=== PATIENT | female | born 1945 | race Caucasian/White ===

== ENCOUNTER 2023-12-17 18:50 | Emergency (ER) | payer MEDICARE, SELFPAY ==
[2023-12-17 18:51] VITALS: BP 96/42; PULSE 69; RESP 16; TEMP 36.2; O2SAT 95
[2023-12-17 18:53] VITALS: BP 104/85; PULSE 114; RESP 18; TEMP 36.2; O2SAT 96; BMI 45.4
[2023-12-17 19:10] VITALS: BP 104/85; PULSE 117; RESP 18; O2SAT 98
--- NOTE | 2023-12-17 19:16 | EX.ED.DYSGE1 ---
HPI History of Present Illness Chief Complaint: Other, Pain/Inj Informant: patient and EMS Narrative Narrative: 77-year-old female sent from [facility] because of a problem with her PICC. The patient states this problem has been occurring for the past week. It is difficult to get medications to go in but they are going, as had her latest doses of Rocephin and vancomycin today. She states she is on these 2 antibiotics until December 25, for 6 weeks total, because of a spinal infection that she had surgically evacuated at . She states she is nonambulatory and has been for several years, unrelated to the infection, and she has no focal neurologic symptoms now in her lower extremity since her surgery. She states the reason she was sent this evening, arriving 1900, is because today she brought to the attention of the nurses and techs at the al[facility] that she has swelling in her left arm and her left breast. She states it has been this way for at least a week. Maybe longer. She states they tried to flush her PICC and were unable to tonight, and as a result of all of this in her here. Patient states otherwise she feels fine. She does not have any pain where she has swelling. PFSH PFSH Allergy/AdvReac Type Severity Reaction Status Date / Time No Known Allergies Allergy Verified 12/17/23 18:53 [facility] ED Constitutional Constitutional ED: Denies chills or fever(s) Eyes Eyes: Denies change in vision or diplopia ENT ENT ED: Denies rhinorrhea or sore throat Cardiovascular Cardiovascular: Reports leg edema; Denies chest pain or palpitations Respiratory/Chest Respiratory/Chest: Denies cough or dyspnea Gastrointestinal Gastrointestinal: Denies abdominal pain, diarrhea, nausea or vomiting Genitourinary Genitourinary ED: Denies dysuria or hematuria Musculoskeletal Musculoskeletal: Denies back pain or neck pain Integumentary Denies abscess or rash Neurologic Neurologic: Denies headache(s), paresthesias or weakness Psychiatric Psychiatric: Denies anxiety or suicidal thoughts EXAM Physical Exam Const Vital Signs: 12/17/23 18:51 12/17/23 18:53 12/17/23 19:10 Temperature 97.2 F L 97.2 F L Temperature Source Temporal Oral Pulse Rate 69 114 H 117 H Respiratory Rate 16 18 18 Respiratory Pattern Blood Pressure 96/42 L 104/85 H 104/85 H Blood Pressure Mean 60 91 91 Pulse Ox 95 96 98 Oxygen Delivery Method Room Air Room Air Room Air 12/17/23 19:11 Temperature Temperature Source Pulse Rate Respiratory Rate Respiratory Pattern Normal Blood Pressure Blood Pressure Mean Pulse Ox Oxygen Delivery Method Positive well nourished, well developed and obese General Appearance ED: well developed and NAD Nutritional Appearance: obese HEENT Reports moist mucous membranes normocephalic and atraumatic Eyes PERRL and EOMs intact bilaterally Neck full ROM and supple Resp normal respiratory effort Auscultation: wheezes expiratory wheezes and throughout Cardio regular rate and regular rhythm GI non-tender and non-distended Auscultation: normoactive bowel sounds Palpation: soft Back/Spine no CVA tenderness General Back: other FROM Extremity normal to inspection Extremity Narrative: Nonpitting edema to the left upper arm as well as the left breast, the surrounding tissues, in the pannus on the left side, all of which is edematous and nontender without signs of infection or induration. Patient leaning to the left lateral decubitus. General Extremety ED: Yes edema; Negative for pulses abnormal or tenderness General Extremity: edema; Negative for pulses abnormal Neuro oriented x3, CN's II-XII intact bilaterally and no sensory deficits noted Sensorium / Orientation: awake and alert Motor Exam: strength 5/5 throughout Psych mental status grossly normal Skin no rashes or lesions noted Skin Narrative: Superficial wound distal right nova with a dressing on it no signs of infection or tenderness. MDM MDM MDM Narrative Medical decision making narrative: Patient appears to be edematous on the left side, we flushed the PICC which the nurse states flushes easily without difficulty. I asked the patient if she lies on the left side often, she states yes, all of the time. I think she is edematous there because it is dependent and she is bedridden for the last several weeks. I do not think she is edematous in her left arm because of a problem with her PICC. I talked all this over with Dr. Felipe who is on-call, he agrees would be reasonable to send her back especially since the PICC is working. I offered to obtain labs if they want, he states no they can see here there at [facility] tomorrow. Of note the patient arrived in the evening when vascular ultrasound of the upper extremity was not available. We did discuss this, I think it is less likely because she does not have any edema in the forearm, but if it was available I would have obtained it. Management Discussion w/another healthcare provider: PCP Discharge Plan Triage Chief Complaint: Other, Pain/Inj ED Provider: Jerman Zavala Dx/Rx/DC Orders Clinical Impression: Dependent edema Instructions: ED Lymphedema Primary Care Provider: Dominic Lim Referrals: Dominic Lim MD [Primary Care Provider] - As soon as possible Print Language: Israeli Disposition Disposition: Home, Self Care
[2023-12-17 19:53] VITALS: BP 108/79; PULSE 96; RESP 18; TEMP 36.6; O2SAT 99
[2023-12-17 21:00] VITALS: BP 105/66; PULSE 84; RESP 18; O2SAT 98
--- NOTE | 2023-12-17 21:26 | NURSING ---
Report called to [facility], given to Susy. All questions answered at this time.
[2023-12-17 23:00] VITALS: BP 100/57; PULSE 81
--- NOTE | 2023-12-17 23:39 | ED.RN ---
pt. updated on delay in transport. This RN got patient aurea crackers and a diet coke. call light within reach
[2023-12-18 00:45] VITALS: BP 100/57; PULSE 81; RESP 16; TEMP 36.7; O2SAT 94
[2023-12-18 01:00] VITALS: BP 105/57; PULSE 74; RESP 17; O2SAT 100
== END 2023-12-18 03:27 | disposition home or self-care (01) ==
PROVIDERS: Emergency Provider Emergency Medicine; PCP Family Medicine; Visit Provider Emergency Medicine
DX: R60.9 Edema, unspecified (principal); E66.9 Obesity, unspecified
CPT/HCPCS: 99282

== ENCOUNTER 2023-12-31 17:42 | Inpatient (IN) | payer MEDICARE, SELFPAY ==
[2023-12-31] VITALS (13 sets, daily range): BP systolic 101–155; BP diastolic 29–131; PULSE 90–122; RESP 12–28; TEMP 36.1–36.7; O2SAT 91–100; BMI 46.3
--- NOTE | 2023-12-31 17:59 | EKG12_ITS ---
Test Reason : UNRESPONSIVE/IRREGUAR HR Blood Pressure : / mmHG Vent. Rate : 101 BPM Atrial Rate : 000 BPM P-R Int : 000 ms QRS Dur : 104 ms QT Int : 402 ms P-R-T Axes : 000 -33 165 degrees QTc Int : 521 ms Atrial fibrillation with rapid ventricular response with premature ventricular or aberrantly conducte d complexes Left axis deviation Low voltage QRS Cannot rule out Anterior infarct , age undetermined Abnormal ECG Confirmed by Raul Fong ([id number]), editor house organ CLIF CANALES ([id number]) on 01/01/2024 10:49:54 AM Referred By: Confirmed By:Raul Fong
--- NOTE | 2023-12-31 18:00 | EDS_ITS ---
HPI History of Present Illness Chief Complaint: Unresponsive Narrative Narrative: History and physical is limited to patient acuity. 78-year-old female presents from half-way facility with decrease in mental status and respiratory wheezing. They state that she was doing well until half an hour ago. She is in the residential being treated for osteomyelitis. Sounded very wheezy, and now she is more unresponsive. She is only intermittently following commands. PFSH PFSH Allergy/AdvReac Type Severity Reaction Status Date / Time No Known Allergies Allergy Verified 12/17/23 18:53 Social History Smoking Status: Never smoker ROS ROS ED Review of Systems ROS Unobtainable: due to mental status EXAM Physical Exam Narrative Exam Narrative: Afebrile. Vital signs noted. Decreased movement of air. Positive expiratory wheezing. Mild tachypnea. Positive tachycardia. Intermittently follows commands. Abdomen soft, obese, without guarding or rebound. Positive right upper extremity edema and bilateral lower extremity edema. Const Vital Signs: 12/31/23 17:44 12/31/23 17:52 12/31/23 17:59 Temperature 97.0 F L Temperature Source Temporal Pulse Rate 102 H Respiratory Rate 26 H Respiratory Effort Labored Accessory Muscle Use Respiratory Pattern Juvencio-Meza Blood Pressure 101/57 L Blood Pressure Mean 71 Pulse Ox 91 Oxygen Delivery Method Nasal Cannula Nasal Cannula Oxygen Flow Rate (L/min) 4 Fraction of Inspired Oxygen (FIO2) 12/31/23 18:11 12/31/23 18:11 12/31/23 18:43 Temperature Temperature Source Pulse Rate 105 H 104 H Respiratory Rate 28 H 23 H Respiratory Effort Respiratory Pattern Tachypnea Blood Pressure Blood Pressure Mean Pulse Ox 96 96 99 Oxygen Delivery Method Bi-pap Bi-pap Oxygen Flow Rate (L/min) Fraction of Inspired Oxygen (FIO2) 70 70 12/31/23 20:00 12/31/23 20:33 Temperature 98.1 F Temperature Source Pulse Rate 108 H 99 Respiratory Rate 21 H 23 H Respiratory Effort Respiratory Pattern Blood Pressure 103/29 L 103/29 L Blood Pressure Mean 53 53 Pulse Ox 96 93 Oxygen Delivery Method Bi-pap Oxygen Flow Rate (L/min) Fraction of Inspired Oxygen (FIO2) MDM MDM MDM Narrative Medical decision making narrative: Differential diagnosis includes but not limited to CO2 narcosis, CHF, sepsis, hepatic encephalopathy. Comprehensive workup was pursued. Patient was only satting 91% on 4 L nasal cannula, but it is in her mouth. She was placed on BiPAP and ABG will be drawn. Sepsis workup was also pursued given that she was tachycardic and borderline hypotensive at 101/57. Chest x-ray in 1 view was interpreted by myself as cardiomegaly with a right pleural effusion. I reviewed the radiology report which confirms my independent interpretation. With suspicion of CO2 retention, ABG was obtained and she has a pH of 7.4 with pCO2 of 45.3 and pO2 of 198 on BiPAP. I reviewed her laboratory work and she has normal white count of 7.7 with hemoglobin stable at 9.9, platelet count normal at 239. INR is 1.8 with a PTT of 39.9. She has known hypokalemia which was being treated at the half-way facility. It is low at 2.6 today so I obtained a magnesium and it is also low at 1.1. She will be started on potassium then magnesium. LFTs are grossly unremarkable. Glucose is appropriately elevated at 139 with a BUN of 20 and creatinine 0.54. Ammonia level is 19 so I do not suspect hepatic encephalopathy. She did improve on her mental status on BiPAP. High-sensitivity troponin is 29. EKG was obtained and interpreted by myself independently as A-fib at [address] changes. No STEMI. There are PVCs noted. Lactic acid is normal at 1.0. Urinalysis does show increase in WBCs and positive yeast. I did obtain respiratory swabs and she is COVID-positive on review. At this point in time, given her change in mental status, hypokalemia and hypomagnesemia, along with respiratory failure on BiPAP I do feel that she requires admission. Patient was discussed with Dr. Sampson. As her lactic acid is normal at 1.0, I do not feel that she is meeting sepsis criteria or that sepsis alert needs to be called. As she has possible secondary bacterial pneumonia with COVID, she was started on vancomycin and Zosyn. Urine culture is currently pending. Given her respiratory failure on BiPAP and electrolyte abnormalities with mental status change, disposition is admit to the ICU in guarded condition. Critical care time 31 minutes. History & Record Review Discussion w/independent historian: EMS personnel Additional record(s) reviewed:: Prior outpatient record and Prior labs Lab Data Attestation: I reviewed the patient's lab results. Labs: Laboratory Results - last 24 hr 12/31/23 12/31/23 12/31/23 17:57 18:35 19:05 WBC 7.7 RBC 3.83 L Hgb 9.9 L Hct 32.8 L MCV 85.6 MCH 25.8 L MCHC 30.2 L RDW Std Deviation 55.0 H RDW Coeff of Josiah 17.7 H Plt Count 239 MPV 9.1 Immature Gran % (Auto) 0.400 Neut % (Auto) 63.9 Lymph % (Auto) 24.3 [place] % (Auto) 7.8 Eos % (Auto) 2.9 Baso % (Auto) 0.7 Absolute Neuts (auto) 4.9 Absolute Lymphs (auto) 1.86 Nucleated RBC % 0 PT 20.9 H INR 1.8 APTT 39.9 H Sodium 142 Potassium 2.6 L* Chloride 106 Carbon Dioxide 32.0 Anion Gap 4 L BUN 20 H Creatinine 0.54 L Est GFR (MDRD) Af Amer 141 Est GFR (MDRD) Non-Af 117 BUN/Creatinine Ratio 37.0 H Glucose 139 H Lactic Acid 1.0 Calcium 7.8 L Magnesium 1.1 L Total Bilirubin 0.30 AST 21 ALT 13 Alkaline Phosphatase 137 H Ammonia 19.0 Troponin I High Sens 29 Total Protein 4.7 L Albumin 1.4 L Globulin 3.3 Albumin/Globulin Ratio 0.4 L Urine Color Rita Urine Clarity Clear Urine pH 6.0 Ur Specific [place] 1.020 Urine Protein 30 H Urine Glucose (UA) Normal Urine Ketones Negative Urine Occult Blood Negative Urine Nitrite Negative Urine Bilirubin Negative Urine Urobilinogen Normal Ur Leukocyte Esterase 100 H Urine RBC 0-5 SEEN Urine WBC 25-50 SEEN Ur Squamous Epith Cells 0 SEEN Urine Bacteria 2+ Urine Mucus 2+ Urine Yeast 2+ ABG Data ABG results: ABG 12/31/23 18:49 Specimen Type ART Sample Site L Radial pH 7.47 H Bicarbonate Actual 32.6 H Total CO2 34 Base Excess 9 H O2 Saturation 100 H O2 % 50.0 ABG pCO2 45.3 H ABG pO2 198 H Gutierrez Test Positive Respiration Rate 12 O2 Delivery Device BiPAP Vent Mode Not entered POC PEEP 6 Peak Inspir Pressure 14 Radiography Diagnostic Testing: Clinical Impression(s) from Imaging Studies Chest X-Ray 12/31/23 18:43 IMPRESSION: Cardiomegaly with right-sided effusion and right lower lobe atelectasis or pneumonia. Electronically Signed: Mariusz Whitten MD at 19:04 EDT , Management Discussion w/another healthcare provider: Hospitalist (Dr. Sampson) Critical Care Time Critical care time (excluding procedures): 30-74 minutes (31 minutes), Including time spent:, Discussing w/Patient &/or Family/Cruise Consultant, Discussing w/C onsultants, Arranging Admission or Transfer and Performing Direct Patient Care at Bedside Discharge Plan Dx/Rx/DC Orders Clinical Impression: Altered mental status, Respiratory failure with hypoxia and hypercapnia, Hypomagnesemia, Hypokalemia, Pneumonia, Pleural effusion, right Disposition Disposition: Acute Care Hospital [facility]
--- NOTE | 2023-12-31 18:08 | NURSING ---
NO OLD EKGS
[2023-12-31 18:09] LABS: Absolute Lymphocyte Count 1.86 X10^3/uL (0.83-4.51); Absolute Neutrophil Count 4.9 X10^3/uL (2.0-7.7); Basophil# 0.05 X10^3/uL; Basophil% 0.7 % (0-1); Eosinophil# 0.22 X10^3/uL; Eosinophils% 2.9 % (0-5); Hematocrit 32.8 % (37-47); Hemoglobin 9.9 g/dL (12.0-15.0); Lymphocyte # 1.86 X10^3/ul (0.83-4.51); Lymphocyte % 24.3 % (19-41); Mean Corp Hgb Conc 30.2 g/dL (32-36); Mean Corpuscular Hgb 25.8 pg (27.0-32.0); Mean Corpuscular Volume 85.6 fL (81-99); Mean Platelet Vol. 9.1 fl (6.2-12.0); Monocyte% 7.8 % (0-10); NRBC Flagged by Analyzer 0 % (0-5); Neutrophil # 4.89 X10^3/uL (2.7-7.7); Neutrophil % 63.9 % (47-70); Platelet Count 239 K/mm3 (150-450); RBC Distribution Width CV 17.7 % (11.6-14.6); Red Blood Count 3.83 M/mm3 (4.2-5.4); White Blood Count 7.7 K/mm3 (4.4-11.0)
[2023-12-31 18:23] LABS: Partial Thromboplast Time 39.9 Seconds (24.1-36.2)
[2023-12-31 18:39] LABS: International Normalized Ratio 1.8; Prothrombin Time (Protime)PT. 20.9 SECONDS (11.7-14.9)
[2023-12-31 18:40] LABS: ALB/GLOB Ratio 0.4 RATIO (0.9-2.4); AST(SGOT) 21 U/L (15-37); Alanine Aminotransfer ALT/SGPT 13 U/L (13-56); Albumin, Serum 1.4 g/dL (3.2-5.0); Alkaline Phosphatase 137 U/L (45-117); Anion Gap 4 (5-15); BUN 20 mg/dL (7-18); Calcium,Total 7.8 mg/dL (8.5-10.1); Chloride 106 mmol/L (98-107); Creatinine, Serum 0.54 mg/dL (0.55-1.02); EST Glomerular Filtration Rate 117 mL/min (>60); Est Glom Filt Rate - Afr Amer 141 mL/min (>60); Globulin 3.3 g/dL (2.2-4.2); Glucose 139 mg/dL (74-106); Potassium 2.6 mmol/L (3.5-5.1); Protein, Total 4.7 g/dL (6.4-8.2); Sodium Level 142 mmol/L (136-145); Troponin-I HS 29 pg/mL (3.0-54.0)
--- NOTE | 2023-12-31 18:43 | RAD_ITS ---
EXAM: XR CHEST, 1 VIEW CLINICAL INDICATION: shortness of breath TECHNIQUE: Frontal view of the chest. COMPARISON: No relevant prior studies available. FINDINGS: LUNGS AND PLEURAL SPACES: See below. HEART: Cardiac silhouette is enlarged in size. MEDIASTINUM: Central airways and mediastinal contour are unremarkable. BONES/JOINTS: There is a right-sided effusion with right lower lobe airspace disease. No acute fracture. SOFT TISSUES: Unremarkable. RAD/Chest 1 View (Portable) IMPRESSION: Cardiomegaly with right-sided effusion and right lower lobe atelectasis or pneumonia. Electronically Signed: Mariusz Whitten MD at 19:04 EDT ,
[2023-12-31 18:45] LABS: Squamous Epithelial Cells - UA 0 SEEN /hpf (5-10)
[2023-12-31 18:47] LABS: Color, Urine Amber (Yellow); Glucose, Dipstick Normal (Normal); Ketone-Dipstick Negative (Negative); Leukocyte Esterase-Dipstick 100 /ul (Negative); Nitrite-Dipstick Negative (Negative); Occult Blood-Urine Negative /ul (Negative); Protein-Dipstick 30 mg/dl (Negative); Urine Bilirubin Dipstick Negative (Negative); Urine Clarity Clear (Clear); Urine Urobilinogen Normal (Normal)
[2023-12-31 18:52] LABS: Allen Test Positive; Base Excess 9 mmol/L (-2 to +2); Bicarbonate 32.6 mmol/L (22-26); Blood Gas Specimen Type ART; Mode Not entered; O2 Delivery Device BiPAP; PEEP 6; PIP 14; PO2 198 mmHG (75-100); RR 12; SITE L Radial; SO2 100 % (95-99); Total Carbon Dioxide 34 mmol/L; pCO2 45.3 mmHg (35-45); pH 7.47 (7.35-7.45)
[2023-12-31] MEDS: KCL 40mEq in 0.9% NS 40 MEQ/1,000 ML IV.SOLN 250 MEQ IV (19:00)
[2023-12-31] MEDS: 0.9% Normal Saline (1000mL) 1,000 ML 999 ML IV (19:03)
[2023-12-31 19:13] LABS: White Blood Cells 25-50 SEEN /hpf (0-5)
[2023-12-31 19:14] LABS: Bacteria 2+ /hpf (None Seen); Mucous, Urine 2+ /hpf (<or=2+); Red Blood Cells-Urine 0-5 SEEN /hpf (0-5); Yeast-Urine 2+ /hpf (None Seen)
[2023-12-31 19:40] LABS: Magnesium 1.1 mg/dL (1.6-2.6)
--- NOTE | 2023-12-31 20:34 | PCM.HP.STD ---
[facility] - General General Date of Admission: 12/31/23 Date of Service: 12/31/23 Chief Complaint: Altered Mental Status and SOB. HPI Narrative DARYN DUPREE, is a 78 F with a past medical history of DM-2; of unknown control, chronic atrial fibrillation; on Xarelto, chronic constipation, depression and spinal osteomyelitis; being treated at an ECF with IV Rocephin and IV Vancomycin via LUE PICC with antibiotics ordered to run until December 26, 2023 who presents to [facility] ER complaining of altered mental status and SOB. Ms. Dupree is not a reliable historian at this time so information was gathered from chart, medical staff and computer. According to the records she was noted by her ECF staff to be increasingly confused with the abrupt-onset of SOB with wheezing that began about 30 minutes prior to arrival so they activated EMS. She was started on BiPAP upon arrival with patient only intermittently following commands with a decreasing trend of responsiveness in the setting of mild tachypnea with positive expiratory wheezing. She was also noted to have RUE edema and bilateral LE edema but was afebrile and normotensive. In the ER her PCR assay returned positive for COVID-19 along with her CXR that revealed RLL infiltrate with effusion suspected to be due to Aspiration Pneumonia causing Acute Hypoxic Respiratory Failure requiring BiPAP complicated by UA positive for Acute Cystitis; with microscopic hematuria (2+bacteria and 2+ yeast) compounded by laboratory evidence of Hypokalemia of 2.6 mmol/L present on admission and Hypomagnesemia of 1.1 mg/dL present on admission all suspected to be combining to cause Acute Metabolic Encephalopathy in the setting of previously known Chronic Osteomyelitis and she was then admitted to the ICU for ongoing care for a stay that is expected to extend beyond 2 midnights. [facility] Home Medications ?Medication ?Instructions ?Recorded ?Last Taken ?Type ceftriaxone 2 gram intravenous 2 g IV BID 12/31/23 Unknown History solution cholecalciferol (vitamin D3) 25 25 mcg PO DAILY 12/31/23 Unknown History mcg (1,000 unit) capsule cyclobenzaprine 5 mg tablet 5 mg PO Q8H 12/31/23 Unknown History insulin lispro 100 unit/mL See Protocol subcut .TIDCM&HS 12/31/23 Unknown History subcutaneous pen (Humalog KwikPen (U-100) Insulin) multivitamin (Daily Multi-Vitamin 1 tab PO DAILY 12/31/23 Unknown History tablet) nystatin 100,000 unit/gram topical 1 applic topical BID 12/31/23 Unknown History powder polyethylene glycol 3350 17 17 g PO BID 12/31/23 Unknown History gram/dose oral powder potassium chloride 10 mEq 20 meq PO DAILY 12/31/23 Unknown History capsule,extended release rivaroxaban 20 mg tablet (Xarelto) 20 mg PO DAILY 12/31/23 Unknown History sennosides 8.6 mg tablet 17.2 mg PO BID 12/31/23 Unknown History vancomycin 2 gram intravenous 2 g IV Q36H 12/31/23 Unknown History solution venlafaxine 75 mg capsule,extended 75 mg PO DAILY 12/31/23 Unknown History release 24 hr Allergy/AdvReac Type Severity Reaction Status Date / Time No Known Allergies Allergy Verified 12/17/23 18:53 Social History Smoking Status: Never smoker ROS ROS Narrative A full ROS was not possible due to patient's metabolic encephalopathy and BiPAP. Vital Signs Vital Signs Vital Signs: 12/31/23 17:44 12/31/23 17:52 12/31/23 17:59 Temperature 97.0 F L Temperature Source Temporal Pulse Rate 102 H Respiratory Rate 26 H Respiratory Effort Labored Accessory Muscle Use Respiratory Pattern Juvencio-Meza Blood Pressure 101/57 L Blood Pressure Mean 71 Pulse Ox 91 Oxygen Delivery Method Nasal Cannula Nasal Cannula Oxygen Flow Rate (L/min) 4 Fraction of Inspired Oxygen (FIO2) 12/31/23 18:11 12/31/23 18:11 12/31/23 18:43 Temperature Temperature Source Pulse Rate 105 H 104 H Respiratory Rate 28 H 23 H Respiratory Effort Respiratory Pattern Tachypnea Blood Pressure Blood Pressure Mean Pulse Ox 96 96 99 Oxygen Delivery Method Bi-pap Bi-pap Oxygen Flow Rate (L/min) Fraction of Inspired Oxygen (FIO2) 70 70 12/31/23 20:00 12/31/23 20:33 Temperature 98.1 F Temperature Source Pulse Rate 108 H 99 Respiratory Rate 21 H 23 H Respiratory Effort Respiratory Pattern Blood Pressure 103/29 L 103/29 L Blood Pressure Mean 53 53 Pulse Ox 96 93 Oxygen Delivery Method Bi-pap Oxygen Flow Rate (L/min) Fraction of Inspired Oxygen (FIO2) Physical Exam Const alert Constitutional Narrative: Patient is lethargic but arousable with chronically ill appearance. Orientation / Consciousness: confused, disoriented and lethargic HEENT normocephalic, head/scalp atraumatic and hearing grossly normal bilaterally HEENT Narrative: Mucous membranes dry. Eyes PERRL and EOMs intact bilaterally Neck no lymphadenopathy and supple Resp normal respiratory effort, no retractions, no use of accessory muscles and clear to auscultation bilaterally Cardio regular rate and regular rhythm GI normal to inspection, nondistended, normoactive bowel sounds, soft to palpation, non-tender and non-distended GI Narrative: Obese. Extremity Extremity Narrative: LUE PICC in place. Patient has chronic 3+ edema in both LE's. Neuro CN's II-XII intact bilaterally and moves all extremities Sensorium / Orientation: awake, alert and oriented to person Speech: speech normal Psych Psych Narrative: Patient is lethargic but arousable. Results Medical Records Data Attestation: I reviewed the patient's medical records Lab / Micro Data Attestation: I reviewed the patient's lab results. 12/31/23 17:57 12/31/23 17:57 Labs: Laboratory Results - last 24 hr 12/31/23 17:57: WBC 7.7, RBC 3.83 L, Hgb 9.9 L, Hct 32.8 L, MCV 85.6, MCH 25.8 L, MCHC 30.2 L, RDW Std Deviation 55.0 H, RDW Coeff of Josiah 17.7 H, Plt Count 239, MPV 9.1, Immature Gran % (Auto) 0.400, Neut % (Auto) 63.9, Lymph % (Auto) 24.3, [place] % (Auto) 7.8, Eos % (Auto) 2.9, Baso % (Auto) 0.7, Absolute Neuts (auto) 4.9, Absolute Lymphs (auto) 1.86, Nucleated RBC % 0, PT 20.9 H, INR 1.8, APTT 39.9 H, Sodium 142, Potassium 2.6 L*, Chloride 106, Carbon Dioxide 32.0, Anion Gap 4 L, BUN 20 H, Creatinine 0.54 L, Est GFR (MDRD) Af Amer 141, Est GFR (MDRD) Non-Af 117, BUN/Creatinine Ratio 37.0 H, Glucose 139 H, Lactic Acid 1.0, Calcium 7.8 L, Magnesium 1.1 L, Total Bilirubin 0.30, AST 21, ALT 13, Alkaline Phosphatase 137 H, Troponin I High Sens 29, Total Protein 4.7 L, Albumin 1.4 L, Globulin 3.3, Albumin/Globulin Ratio 0.4 L 12/31/23 18:35: Urine Color Rita, Urine Clarity Clear, Urine pH 6.0, Ur Specific [place] 1.020, Urine Protein 30 H, Urine Glucose (UA) Normal, Urine Ketones Negative, Urine Occult Blood Negative, Urine Nitrite Negative, Urine Bilirubin Negative, Urine Urobilinogen Normal, Ur Leukocyte Esterase 100 H, Urine RBC 0-5 SEEN, Urine WBC 25-50 SEEN, Ur Squamous Epith Cells 0 SEEN, Urine Bacteria 2+, Urine Mucus 2+, Urine Yeast 2+ 12/31/23 19:05: Ammonia 19.0 Micro: Microbiology 12/31/23 18:35 Mucosa - Nose SARS-CoV-2, Influenza & RSV (PCR) - Final SARS-CoV-2 (COVID 19) ABG Data ABG results: ABG 12/31/23 18:49 Specimen Type ART Sample Site L Radial pH 7.47 H Bicarbonate Actual 32.6 H Total CO2 34 Base Excess 9 H O2 Saturation 100 H O2 % 50.0 ABG pCO2 45.3 H ABG pO2 198 H Gutierrez Test Positive Respiration Rate 12 O2 Delivery Device BiPAP Vent Mode Not entered POC PEEP 6 Peak Inspir Pressure 14 Imaging Radiology Impression Chest X-Ray 12/31/23 18:43 IMPRESSION: Cardiomegaly with right-sided effusion and right lower lobe atelectasis or pneumonia. Electronically Signed: Mariusz Whitten MD at 19:04 EDT , Assessment & Plan Assessment/Plan (1) Pneumonia: QUALIFIERS: Laterality: right Lung location: lower lobe of lung Pneumonia type: due to unspecified organism Qualified Code(s): J18.9 - Pneumonia, unspecified organism (2) Pleural effusion, right: (3) COVID-19: (4) Respiratory failure with hypoxia and hypercapnia: QUALIFIERS: Chronicity: acute Qualified Code(s): J96.01 - Acute respiratory failure with hypoxia; J96.02 - Acute respiratory failure with hypercapnia (5) Hypokalemia: (6) Hypomagnesemia: (7) Altered mental status: QUALIFIERS: Altered mental status type: unspecified Qualified Code(s): R41.82 - Altered mental status, unspecified (8) Chronic osteomyelitis of spine: PLAN: Plan 1. 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 Continue broad-spectrum antibiotics with IV Vancomycin and IV Zosyn and then await culture and sensitivity data. Give Decadron 6 mg IV BID for COVID-19 plus give GI prophylaxis with Pepcid 20 mg IV BID for added antihistamine effect. Give Vitamin D3, Vitamin C and Zinc to help boost immunity and speed recovery in this chronically ill patient. 2. Acute Hypoxic Respiratory Failure arising from #1 - Wean BiPAP as tolerated. 3. Acute Cystitis complicating #1 & #2 - UA positive for 2+ bacteria and 2+ yeast so we will add IV Diflucan in this patient on chronic antibiotics for osteomyelitis. 4. Hypokalemia of 2.6 mmol/L present on admission compounding #1 - #3 - Continue supplemental IV KCl begun in the ER plus add oral KCl and then recheck CMP in the AM to ensure improvement. 5. Hypomagnesemia of 1.1 mg/dL present on admission adding to the pathology of #1 - #4 - Resume supplemental magnesium given in the ER and recheck level in the AM to confirm repletion. 6. Acute Metabolic Encephalopathy attributable to #1 - #5 - Continue supportive care outlined above plus check TSH, B12, Folate, ZHANG and UDS to evaluate for potentially reversible causes of confusion. 7. Chronic Spinal Osteomyelitis treated at [facility] adding to the medical complexity of #1 - #6 - Patient was on Ceftriaxone IV and Vancomycin IV which should be restarted after she completes this course of therapy that were scheduled to be completed on December 26, 2023. 8. History of chronic atrial fibrillation; with Xarelto - Continue Xarelto as previous. 9. DVT/GI prophylaxis - Continue Xarelto as previous plus SCD's. Pepcid 20 mg IV BID. Total time.
--- NOTE | 2023-12-31 21:00 | ED.RN ---
PT HAS POTASSIUM GOING IN ONLY AVAILABLE IV SITE. ANTIBIOTICS ORDERED. PT RIGHT ARM HAS SWELLING AND BRUISING, NOT ABLE TO GET IV ON THIS SIDE. NURSE ATTEMPTING TO GET ANOTHER IV TO START ANTIBIOTICS AT THIS TIME.
[2023-12-31] MEDS: Vancomycin HCl 2,000 MG in 0.9% Normal Saline (500mL Bag) 500 ML 250 MG IV (21:39)
[2023-12-31 22:19] LABS: BNP,B-Type NATRIURETIC PEPTIDE 566.6 pg/mL (0-100)
[2023-12-31] MEDS: 0.9% Saline Lock 10 ML Syringe IV (22:49)
[2023-12-31] MEDS: dexAMETHasone 10 MG/ML Vial 6 MG IV (22:49)
[2023-12-31] MEDS: Famotidine 200 MG/20 ML MDV 20 MG in 0.9% Normal Saline (Pres. free 8 ML 300 MG IV (22:50)
[2023-12-31] MEDS: KCL 20MEQ in 0.9% NS 20 MEQ/1,000 ML IV.SOLN. 70 MEQ IV (23:03)
--- NOTE | 2023-12-31 23:17 | PCM.RX.CS ---
Consult Antibiotic Management Pharmacy has been consulted to manage selected antibiotic: Vancomycin Type of Intervention Type of Consult: New start Labs Labs: Sodium 142 mmol/L (136-145) 12/31/23 17:57 Potassium 2.6 mmol/L (3.5-5.1) L* 12/31/23 17:57 Chloride 106 mmol/L (98-107) 12/31/23 17:57 Carbon Dioxide 32.0 mmol/L (21.0-32.0) 12/31/23 17:57 Anion Gap 4 (5-15) L 12/31/23 17:57 BUN 20 mg/dL (7-18) H 12/31/23 17:57 Creatinine 0.54 mg/dL (0.55-1.02) L 12/31/23 17:57 Est GFR (MDRD) Af Amer 141 mL/min (>60) 12/31/23 17:57 Est GFR (MDRD) Non-Af 117 mL/min (>60) 12/31/23 17:57 BUN/Creatinine Ratio 37.0 RATIO (10-20) H 12/31/23 17:57 Glucose 139 mg/dL (74-106) H 12/31/23 17:57 Microbiology Microbiology: Microbiology 12/31/23 18:35 Mucosa - Nose SARS-CoV-2, Influenza & RSV (PCR) - Final SARS-CoV-2 (COVID 19) Dosing Weight Weight used for dosin.7 kg Estimated Creatinine Clearance Estimated Creatinine Clearance: 83 Goal Trough Goal Trough: 15-20 mcg/mL Pharmacy Plan for Drug Dosing Pharmacy Plan for Drug Dosing: Pharmacy Service will continue to monitor and adjust dosing as required. 2000MG IN ER, 2000MG Q12H TROUGH PRIOR TO 4TH DOSE Follow-Up Labs Follow-Up Labs: Trough: Vancomycin Date/Time Labs Ordered Labs to be done on [date and time ordered]: 01/01 @ 0900
[2023-12-31 23:40] LABS: Vitamin B12 1036 pg/mL (211-911)
[2023-12-31 23:59] LABS: Amphetamine Urine VISTA NEGATIVE (<1000 ng/mL); Barbiturate Urine VISTA NEGATIVE (< 200 ng/mL); Benzodiazepine Urine VISTA NEGATIVE (< 200 ng/mL); Cocaine Urine VISTA NEGATIVE (< 300 ng/mL); Ecstacy Urine VISTA NEGATIVE (< 500 ng/mL); Methadone Urine VISTA NEGATIVE (< 300 ng/mL); PCP Urine VISTA NEGATIVE (< 25 ng/mL); THC Urine VISTA NEGATIVE (< 50 ng/mL)
[2024-01-01] VITALS (33 sets, daily range): BP systolic 92–137; BP diastolic 61–108; PULSE 82–134; RESP 12–22; TEMP 36.2–36.9; O2SAT 87–100; BMI 46.7
--- NOTE | 2024-01-01 01:38 | NURSING ---
0137- Dr. Travis called the floor to ask this RN if patient received magnesium sulfate in ER as her magnesium level came back at 1.1. No magnesium sulfate administration or order listed on the MAR that this RN can see. Dr. Travis informed this RN that he will order mag replacement and that this RN can check am labs early/ as soon as magnesium is infused.
[2024-01-01] MEDS: Magnesium Sulfate 2 GM in Dextrose 5%-Water (100mL Bag) 100 ML IV (02:28)
[2024-01-01] MEDS: Potassium Chloride 20mEq/100mL 20 MEQ/100 ML IV.SOLN. 100 MEQ IV BOLUS ×4 (02:30→05:58)
[2024-01-01] MEDS: 0.9% Saline Lock 10 ML Syringe IV ×3 (04:44→10:09)
[2024-01-01] MEDS: Piperacil/Tazobactam 3.375 GM in 0.9% Normal Saline (50mL MB+) 50 ML IV (04:45)
[2024-01-01 04:47] LABS: Absolute Lymphocyte Count 0.64 X10^3/uL (0.83-4.51); Absolute Neutrophil Count 4.9 X10^3/uL (2.0-7.7); Basophil# 0.02 X10^3/uL; Basophil% 0.4 % (0-1); Eosinophil# 0.02 X10^3/uL; Eosinophils% 0.4 % (0-5); Hematocrit 31.3 % (37-47); Hemoglobin 9.3 g/dL (12.0-15.0); Lymphocyte # 0.64 X10^3/ul (0.83-4.51); Lymphocyte % 11.3 % (19-41); Mean Corp Hgb Conc 29.7 g/dL (32-36); Mean Corpuscular Hgb 25.3 pg (27.0-32.0); Mean Corpuscular Volume 85.1 fL (81-99); Mean Platelet Vol. 9.2 fl (6.2-12.0); Monocyte# 0.06 X10^3/uL; Monocyte% 1.1 % (0-10); NRBC Flagged by Analyzer 0 % (0-5); Neutrophil # 4.91 X10^3/uL (2.7-7.7); Neutrophil % 86.3 % (47-70); Platelet Count 196 K/mm3 (150-450); RBC Distribution Width CV 17.4 % (11.6-14.6); RBC Distribution Width SD 54.6 fl (35.1-43.9); Red Blood Count 3.68 M/mm3 (4.2-5.4); White Blood Count 5.7 K/mm3 (4.4-11.0)
[2024-01-01 05:17] LABS: ALB/GLOB Ratio 0.5 RATIO (0.9-2.4); AST(SGOT) 15 U/L (15-37); Alanine Aminotransfer ALT/SGPT 12 U/L (13-56); Albumin, Serum 1.4 g/dL (3.2-5.0); Alkaline Phosphatase 128 U/L (45-117); Anion Gap 5 (5-15); BUN 20 mg/dL (7-18); BUN/Creat Ratio 43.7 RATIO (10-20); Calcium,Total 7.4 mg/dL (8.5-10.1); Chloride 109 mmol/L (98-107); Creatinine, Serum 0.46 mg/dL (0.55-1.02); EST Glomerular Filtration Rate 141 mL/min (>60); Est Glom Filt Rate - Afr Amer 171 mL/min (>60); Estimated Creatinine Clearance 83.43 ml/min; Glucose 151 mg/dL (74-106); Magnesium 1.4 mg/dL (1.6-2.6); Phosphorus 3.4 mg/dL (2.5-4.9); Potassium 3.7 mmol/L (3.5-5.1); Protein, Total 4.4 g/dL (6.4-8.2); Sodium Level 143 mmol/L (136-145)
[2024-01-01 05:46] LABS: Blood Gas Specimen Type VEN; O2 Delivery Device BiPAP; SITE Not entered; VBG BASE EXCESS 4 mmol/L (-1.0-3.5); VBG Bicarbonate 28 mmol/L (22-26); VBG PO2 51 mmHg (25-40); VBG SO2 88 % (50-70); VBG TCO2 29 mmol/L (23-33); VBG pCO2 38.9 mmHg (41-51); VBG pH 7.47 (7.32-7.42)
--- NOTE | 2024-01-01 05:55 | RAD_ITS ---
EXAM: XR CHEST, 1 VIEW CLINICAL INDICATION: RLL PNA. TECHNIQUE: Frontal view of the chest. COMPARISON: Previous chest radiographs of 12/31/2023. FINDINGS: LUNGS AND PLEURAL SPACES: There is increasing opacification of the right lower lung by worsening airspace disease/pneumonia, and a stable small- moderate right pleural effusion; the right hemidiaphragm is again noted to be silhouetted. There is continued dense opacification of the left lower lung including the opacification of the retrocardiac portion of the left lower lung, and with silhouetting of the left hemidiaphragm. In addition to the left lower lobe consolidation, a small-moderate left pleural effusion is suspected. Minimal patchy airspace disease has developed in the left upper lobe. HEART: Heart size remains moderately enlarged with normal pulmonary vasculature for technique.. MEDIASTINUM: Aortic arch is calcific; the thoracic aorta is not elongated. Both pulmonary amilcar are prominent which could be due to prominent main pulmonary artery segments and/or adenopathy. BONES/JOINTS: Thoracic degenerative spurring. No acute osseous abnormality. SOFT TISSUES: Unremarkable. RAD/Chest 1 View (Portable) IMPRESSION: Interval development of minimal patchy pneumonia in the left upper lobe. Stable right pleural effusion with mild worsening of extensive pneumonia in the right lower lung. Continued opacification of the left lower lung base by dense infiltrate such as atelectasis and/or pneumonia, along with a small moderate left pleural effusion. Electronically Signed: Javad Alonzo MD at 5:58 EDT ,
[2024-01-01 06:25] LABS: Vista UDS pH Range 6
--- NOTE | 2024-01-01 07:22 | PCM.PN.HOSP ---
Reason for Visit Reason for Visit: Diagnoses Hypomagnesemia (12/31/23) Hypokalemia (12/31/23) Pneumonia, unspecified organism (12/31/23) Pleural effusion, not elsewhere classified (12/31/23) Acute respiratory failure with hypoxia (12/31/23) Acute respiratory failure with hypercapnia (12/31/23) Respiratory failure, unspecified with hypoxia (12/31/23) Respiratory failure, unspecified with hypercapnia (12/31/23) Osteomyelitis of vertebra, site unspecified (12/31/23) Altered mental status, unspecified (12/31/23) COVID-19 (12/31/23) Subjective Subjective Still confused. Was on room air at one point. Placed back on BiPAP. Objective Data Objective Data Vital Signs: Vital Signs Temp Pulse Resp BP Pulse Ox O2 Del Method O2 Flow Rate 36.6 C 92 20 H 121/90 H 100 Bi-pap 4 01/01/24 04:00 01/01/24 07:00 01/01/24 07:00 01/01/24 07:00 01/01/24 07:00 01/01/24 07:00 12/31/23 17:44 FiO2 30 01/01/24 07:00 Oxygen Flow Rate (L/min) 4 Oxygen Delivery Method Bi-pap Weight: 131.9 kg Body Mass Index (BMI) 46.7 Intake & Output: Intake and Output for Last 24 Hours 12/30/23 12/31/23 01/01/24 23:59 23:59 23:59 Intake Total 2009 1150.5 / 1150.5 Output Total 100 / 100 100 / 100 Balance 1909 / 2450 1050.5 / 1050.5 Lab / Micro Data 01/01/24 04:42 01/01/24 04:42 Labs: Laboratory Results - last 24 hr 12/31/23 17:52: B-Natriuretic Peptide 566.6 H 12/31/23 17:57: WBC 7.7, RBC 3.83 L, Hgb 9.9 L, Hct 32.8 L, MCV 85.6, MCH 25.8 L, MCHC 30.2 L, RDW Std Deviation 55.0 H, RDW Coeff of Josiah 17.7 H, Plt Count 239, MPV 9.1, Immature Gran % (Auto) 0.400, Neut % (Auto) 63.9, Lymph % (Auto) 24.3, [place] % (Auto) 7.8, Eos % (Auto) 2.9, Baso % (Auto) 0.7, Absolute Neuts (auto) 4.9, Absolute Lymphs (auto) 1.86, Nucleated RBC % 0, PT 20.9 H, INR 1.8, APTT 39.9 H, Sodium 142, Potassium 2.6 L*, Chloride 106, Carbon Dioxide 32.0, Anion Gap 4 L, BUN 20 H, Creatinine 0.54 L, Est GFR (MDRD) Af Amer 141, Est GFR (MDRD) Non-Af 117, BUN/Creatinine Ratio 37.0 H, Glucose 139 H, Lactic Acid 1.0, Calcium 7.8 L, Magnesium 1.1 L, Total Bilirubin 0.30, AST 21, ALT 13, Alkaline Phosphatase 137 H, Troponin I High Sens 29, Total Protein 4.7 L, Albumin 1.4 L, Globulin 3.3, Albumin/Globulin Ratio 0.4 L, Folate 10.10 12/31/23 18:35: Urine Color Rita, Urine Clarity Clear, Urine pH 6.0, Ur Specific [place] 1.020, Urine Protein 30 H, Urine Glucose (UA) Normal, Urine Ketones Negative, Urine Occult Blood Negative, Urine Nitrite Negative, Urine Bilirubin Negative, Urine Urobilinogen Normal, Ur Leukocyte Esterase 100 H, Urine RBC 0-5 SEEN, Urine WBC 25-50 SEEN, Ur Squamous Epith Cells 0 SEEN, Urine Bacteria 2+, Urine Mucus 2+, Urine Yeast 2+, Urine Opiates Screen NEGATIVE, Urine Methadone Screen NEGATIVE, Ur Barbiturates Screen NEGATIVE, Ur Phencyclidine Scrn NEGATIVE, Ur Amphetamines Screen NEGATIVE, MDMA (Ecstasy) Screen NEGATIVE, U Benzodiazepines Scrn NEGATIVE, Urine Cocaine Screen NEGATIVE, U Cannabinoids Screen NEGATIVE, Ur Drug Screen Comment 12/31/23 19:05: Ammonia 19.0 12/31/23 23:02: Vitamin B12 1036 H 12/31/23 23:40: Ethyl Alcohol 5.0 01/01/24 04:42: WBC 5.7, RBC 3.68 L, Hgb 9.3 L, Hct 31.3 L, MCV 85.1, MCH 25.3 L, MCHC 29.7 L, RDW Std Deviation 54.6 H, RDW Coeff of Josiah 17.4 H, Plt Count 196, MPV 9.2, Immature Gran % (Auto) 0.500, Neut % (Auto) 86.3 H, Lymph % (Auto) 11.3 L, [place] % (Auto) 1.1, Eos % (Auto) 0.4, Baso % (Auto) 0.4, Absolute Neuts (auto) 4.9, Absolute Lymphs (auto) 0.64 L, Nucleated RBC % 0, Sodium 143, Potassium 3.7, Chloride 109 H, Carbon Dioxide 29.0, Anion Gap 5, BUN 20 H, Creatinine 0.46 L, Estim Creat Clear Calc 83.43, Est GFR (MDRD) Af Amer 171, Est GFR (MDRD) Non-Af 141, BUN/Creatinine Ratio 43.7 H, Glucose 151 H, Calcium 7.4 L, Phosphorus 3.4, Magnesium 1.4 L, Total Bilirubin 0.30, AST 15, ALT 12 L, Alkaline Phosphatase 128 H, Total Protein 4.4 L, Albumin 1.4 L, Globulin 3.0, Albumin/Globulin Ratio 0.5 L, TSH 1.650 Micro: Microbiology 12/31/23 18:35 Mucosa - Nose SARS-CoV-2, Influenza & RSV (PCR) - Final SARS-CoV-2 (COVID 19) ABG Data ABG results: ABG 12/31/23 01/01/24 18:49 05:42 Specimen Type ART SOLIS Sample Site L Radial Not entered pH 7.47 H Bicarbonate Actual 32.6 H Total CO2 34 Base Excess 9 H O2 Saturation 100 H O2 % 50.0 30.0 ABG pCO2 45.3 H ABG pO2 198 H Gutierrez Test Positive VBG pH 7.47 H VBG pO2 51 H VBG HCO3 28 H VBG Total CO2 29 VBG O2 Sat (Calc) 88 H VBG Base Excess 4 H POC Mix VBG pCO2 Pt Tmp 38.9 L Respiration Rate 12 O2 Delivery Device BiPAP BiPAP Vent Mode Not entered POC PEEP 6 Peak Inspir Pressure 14 Radiography Diagnostic Testing: Radiology Impression Chest X-Ray 12/31/23 18:43 IMPRESSION: Cardiomegaly with right-sided effusion and right lower lobe atelectasis or pneumonia. Electronically Signed: Mariusz Whitten MD at 19:04 EDT , Chest X-Ray 01/01/24 05:55 IMPRESSION: Interval development of minimal patchy pneumonia in the left upper lobe. Stable right pleural effusion with mild worsening of extensive pneumonia in the right lower lung. Continued opacification of the left lower lung base by dense infiltrate such as atelectasis and/or pneumonia, along with a small moderate left pleural effusion. Electronically Signed: Javad Alonzo MD at 5:58 EDT , Physical Exam Const alert and no apparent distress HEENT head/scalp atraumatic and moist oral mucous membranes Resp normal respiratory effort, no retractions, no use of accessory muscles and clear to auscultation bilaterally Cardio regular rate, regular rhythm, S1 normal heart sound and S2 normal heart sound GI normal to inspection, nondistended, normoactive bowel sounds, soft to palpation, non-tender and non-distended Extremity normal to inspection and full ROM Neuro Sensorium / Orientation: awake and alert Assessment & Plan Assessment/Plan (1) Pneumonia: QUALIFIERS: Laterality: right Lung location: lower lobe of lung Pneumonia type: due to unspecified organism Qualified Code(s): J18.9 - Pneumonia, unspecified organism (2) Pleural effusion, right: (3) COVID-19: (4) Respiratory failure with hypoxia and hypercapnia: QUALIFIERS: Chronicity: acute Qualified Code(s): J96.01 - Acute respiratory failure with hypoxia; J96.02 - Acute respiratory failure with hypercapnia (5) Hypokalemia: (6) Hypomagnesemia: (7) Altered mental status: QUALIFIERS: Altered mental status type: unspecified Qualified Code(s): R41.82 - Altered mental status, unspecified (8) Chronic osteomyelitis of spine: PLAN: Plan Acute hypoxic respiratory failure Likely multifactorial due to acute COVID-19 plus what appears to be acute heart failure exacerbation with pleural effusions. No baseline cardiac studies available in our system. I feel less likely this is pneumonia and the fact that the patient has been afebrile and has a normal white count and had been on antibiotics prior to arrival. Currently on BiPAP but FiO2 has been able to be weaned down from 70 to 30%. Acute heart failure exacerbation Unclear type Start furosemide Acute COVID-19 pneumonitis I feel much to the changes on that x-ray are more likely due to CHF though bacterial pneumonia certainly could be a possibility though less likely with normal white count absence of fever. Started on dexamethasone. Abnormal urinalysis Acute cystitis ruled out. Patient only 25-50 white blood cells and patient does have bacteria and yeast but do not feel that these are pathologic. Patient is already on antibiotics with bank and pip-tazo. Will discontinue the Diflucan. Hypokalemia/hypomagnesemia Replaced and improved but still low. Will continue with the replacement. Acute Metabolic Encephalopathy ongoing Secondary to respiratory failure. TSH, B12 and folate within normal limits. Avoid potenitating medications. Chronic Spinal Osteomyelitis Patient was to be treated with vancomycin and ceftriaxone through the 01/12/2024. Currently on pip-tazo and vancomycin, will change back to CTX and vancomycin. . Will review the records to see when the actual stop date was and just accordingly. Chronic conditions chronic atrial fibrillation: On rivaroxaban. VTE prophylaxis: Not indicated as patient is already on rivaroxaban. Charges/Coding Visit Charges Inpatient E&M: 41063 Subs Hosp L2
--- NOTE | 2024-01-01 07:30 | ECHOD_ITS ---
Reason For Study: CHF Procedure This was a limited 2D transthoracic echocardiogram. The exam was abbreviated due to the COVID 19 protocol. Exam performed portable in ICU/CCU. Left Ventricle Normal LV size. The estimated ejection fraction is 35 %. There is evidence of diastolic dysfunction. There is moderate to severe global hypokinesis of the left ventricle. Right Ventricle Normal RV size. Normal systolic function. Atria There is moderate biatrial dilatation. Mitral Valve There is moderate mitral annular calcification. There is no mitral valve stenosis. Mild (1+) mitral valve insufficiency. Tricuspid Valve There is no tricuspid stenosis. Trivial tricuspid valve insufficiency. Pulmonary artery systolic pressure is 45 mmHg. Aortic Valve Severe diffuse aortic valve thickening. Moderate aortic stenosis. No aortic valve insufficiency. Pulmonic Valve There is no pulmonic valvular stenosis. No pulmonic valve insufficiency. Great Vessels Normal aortic root. Pericardium/Pleural No pericardial effusion. MMode/2D Measurements & Calculations LVIDd: 4.8 cm IVSd: 1.0 cm LVOT diam: 2.0 cm LVIDs: 3.9 cm LVPWd: 1.1 cm LVOT area: 3.3 cm2 FS: 18.2 % LA dimension: 3.9 cm LAV(MOD-bp): 106.1 ml LA A4 area: 28.1 cm2 LAV(MOD-bp) Indexed: 45.3 ml/m2 LAV(MOD-sp2): 114.4 ml LAV(MOD-sp4): 87.0 ml RA A4 area: 22.6 cm2 Time Measurements MV dec time: 0.17 sec Doppler Measurements & Calculations MV E max filemon: 88.9 cm/sec MV V2 max: 116.1 cm/sec MV dec slope: 517.3 cm/sec2 MV A max filemon: 24.8 cm/sec MV max P.4 mmHg MV E/A: 3.6 MV V2 mean: 56.7 cm/sec MV mean P.7 mmHg MV V2 VTI: 18.5 cm MVA(VTI): 3.1 cm2 Ao V2 max: 333.2 cm/sec LV V1 max: 89.4 cm/sec MR max filemon: 528.0 cm/sec Ao max P.6 mmHg LV V1 max P.3 mmHg MR max P.5 mmHg Ao V2 mean: 226.8 cm/sec LV V1 mean P.5 mmHg MR mean filemon: 392.4 cm/sec Ao mean P.9 mmHg LV V1 mean: 56.3 cm/sec MR mean P.8 mmHg Ao V2 VTI: 64.4 cm LV V1 VTI: 17.4 cm MR VTI: 170.3 cm AV (velocity ratio): 0.27 HARMAN(I,D): 0.89 cm2 HARMAN(V,D): 0.88 cm2 SV(LVOT): 57.0 ml TR max filemon: 313.4 cm/sec TR max P.3 mmHg ECHO/Echo Complete Interpretation Summary The estimated ejection fraction is 35 %. There is evidence of diastolic dysfunction. There is moderate biatrial dilatation. Mild (1+) mitral valve insufficiency. Moderate aortic stenosis. Ordering Physician: Ever Last Performed By: Red Farooq RCS
[2024-01-01] MEDS: Magnesium Sulfate 4gm/100mL 4 GM/100 ML IV.SOLN. IV (08:41)
--- NOTE | 2024-01-01 09:52 | CASEMGMT ---
Social Work SW reviewed chart, pt is having some confusion as per the H&P. SW called pt's son Clinton, who is listed as the first contact on the SNF paperwork. Clinton confirms plan will be to return to [facility] at discharge, he states pt really likes it there and wants to stay there. Clinton states that her insurance continues to authorize her for skilled care as she is on IV antibiotics, she is authorized through 01/14. He states he is in the process of selling her home, states it is complicated. Support offered. SNF list not needed at this time, plan will be for pt to return to [facility]. D/C marketing planning manager will send updates today to [facility]. DANICA will continue to follow. BILL Buchanan
[2024-01-01] MEDS: Vancomycin HCl 2,000 MG in 0.9% Normal Saline (500mL Bag) 500 ML 250 MG IV ×2 (09:53→21:05)
[2024-01-01] MEDS: dexAMETHasone 10 MG/ML Vial 6 MG IV ×2 (09:53→21:10)
[2024-01-01] MEDS: Famotidine 200 MG/20 ML MDV 20 MG in 0.9% Normal Saline (Pres. free 8 ML 300 MG IV ×2 (09:54→21:06)
[2024-01-01] MEDS: Nystatin Powder 15gm Bottle 1 APPLIC TOPICAL ×2 (09:54→21:12)
[2024-01-01] MEDS: Furosemide 40 MG/4 ML Vial IV ×2 (09:54→17:08)
--- NOTE | 2024-01-01 10:01 | CASEMGMT ---
Addendum entered by Bethany Colbert 01/01/24 10:14: Precert needed. Bethany Colbert DC Planning Asst. Original Note: Discharge Planning Updates sent via [facility]. Asked if precert will be needed to return. Awaiting response. Bethany Colbert DC Planning Asst.
[2024-01-01] MEDS: 0.9 % NaCl (Sterile) Posiflush 10 mL IV ×3 (17:08→22:27)
[2024-01-01] MEDS: Ceftriaxone 2 GM in 0.9% Normal Saline (50mL MB+) 50 ML IV (21:06)
[2024-01-01] MEDS: cycloBENZAPRine HCl 5 MG TABLET PO (21:10)
[2024-01-01] MEDS: Lactobacillis Acidophilus 1 CAP PO (21:10)
[2024-01-01] MEDS: Digoxin 250 MCG/ML Ampul IV (22:26)
[2024-01-01] MEDS: hydrOXYzine 50 MG/ML Vial 100 MG IM (22:38)
[2024-01-02] VITALS (12 sets, daily range): BP systolic 121–142; BP diastolic 74–119; PULSE 85–124; RESP 18–28; TEMP 36.6–36.9; O2SAT 93–100; BMI 47.0
[2024-01-02] MEDS: cycloBENZAPRine HCl 5 MG TABLET PO ×3 (07:02→21:14)
[2024-01-02 07:47] LABS: Anion Gap 6 (5-15); BUN 23 mg/dL (7-18); BUN/Creat Ratio 35.1 RATIO (10-20); Calcium,Total 8.1 mg/dL (8.5-10.1); Chloride 108 mmol/L (98-107); Creatinine, Serum 0.66 mg/dL (0.55-1.02); EST Glomerular Filtration Rate 93 mL/min (>60); Est Glom Filt Rate - Afr Amer 113 mL/min (>60); Estimated Creatinine Clearance 83.81 ml/min; Glucose 165 mg/dL (74-106); Magnesium 1.7 mg/dL (1.6-2.6); Sodium Level 143 mmol/L (136-145)
--- NOTE | 2024-01-02 07:54 | PN.HOSP_ITS ---
Reason for Visit Reason for Visit: Diagnoses Hypomagnesemia (12/31/23) Hypokalemia (12/31/23) Pneumonia, unspecified organism (12/31/23) Pleural effusion, not elsewhere classified (12/31/23) Acute respiratory failure with hypoxia (12/31/23) Acute respiratory failure with hypercapnia (12/31/23) Respiratory failure, unspecified with hypoxia (12/31/23) Respiratory failure, unspecified with hypercapnia (12/31/23) Osteomyelitis of vertebra, site unspecified (12/31/23) Altered mental status, unspecified (12/31/23) COVID-19 (12/31/23) Subjective Subjective More alert today. Objective Data Objective Data Vital Signs: Vital Signs Temp Pulse Resp BP Pulse Ox O2 Del Method O2 Flow Rate 36.7 C 124 H 18 135/85 H 100 Nasal Cannula 4 01/02/24 00:00 01/02/24 00:00 01/02/24 00:00 01/02/24 00:00 01/02/24 00:00 01/02/24 00:00 01/02/24 00:00 FiO2 40 01/01/24 16:45 Oxygen Flow Rate (L/min) 4 Oxygen Delivery Method Nasal Cannula Weight: 132.9 kg Body Mass Index (BMI) 47.0 Intake & Output: Intake and Output for Last 24 Hours 12/31/23 01/01/24 01/02/24 23:59 23:59 23:59 Intake Total 2009 2550.5 / 2700.5 150 / 150 Output Total 100 / 100 2100 / 2100 Balance 1910 / 2450 450.5 / 600.5 150 / 150 Lab / Micro Data 01/01/24 04:42 01/02/24 03:30 Labs: Laboratory Results - last 24 hr 12/31/23 18:35: Urine Color Rita, Urine Clarity Clear, Urine pH 6.0, Ur Specific [place] 1.020, Urine Protein 30 H, Urine Glucose (UA) Normal, Urine Ketones Negative, Urine Occult Blood Negative, Urine Nitrite Negative, Urine Bilirubin Negative, Urine Urobilinogen Normal, Ur Leukocyte Esterase 100 H, Urine RBC 0-5 SEEN, Urine WBC 25-50 SEEN, Ur Squamous Epith Cells 0 SEEN, Urine Bacteria 2+, Urine Mucus 2+, Urine Yeast 2+ 01/02/24 03:30: Sodium 143, Potassium 4.0, Chloride 108 H, Carbon Dioxide 29.0, Anion Gap 6, BUN 23 H, Creatinine 0.66, Estim Creat Clear Calc 83.81, Est GFR (MDRD) Af Amer 113, Est GFR (MDRD) Non-Af 93, BUN/Creatinine Ratio 35.1 H, G lucose 165 H, Calcium 8.1 L, Magnesium 1.7 Micro: Microbiology 12/31/23 17:57 Blood Culture (Wb) - Other Blood Culture - Preliminary 12/31/23 18:35 Urine, Catheterized Urine Culture - Preliminary Mixed Gram Pos & Gram Neg Org 12/31/23 18:35 Mucosa - Nose SARS-CoV-2, Influenza & RSV (PCR) - Final SARS-CoV-2 (COVID 19) Physical Exam Const alert and no apparent distress HEENT head/scalp atraumatic and moist oral mucous membranes Resp normal respiratory effort and no retractions Resp Narrative: coarse breath sounds. Cardio regular rate, regular rhythm, S1 normal heart sound and S2 normal heart sound GI normal to inspection, nondistended, normoactive bowel sounds, soft to palpation, non-tender and non-distended Extremity normal to inspection and full ROM General Extremity: edema bilateral lower extremity Details: severe Neuro Sensorium / Orientation: awake and alert Assessment & Plan Assessment/Plan (1) Pneumonia: QUALIFIERS: Laterality: right Lung location: lower lobe of lung Pneumonia type: due to unspecified organism Qualified Code(s): J18.9 - Pneumonia, unspecified organism (2) COVID-19: (3) Respiratory failure with hypoxia and hypercapnia: QUALIFIERS: Chronicity: acute Qualified Code(s): J96.01 - Acute respiratory failure with hypoxia; J96.02 - Acute respiratory failure with hypercapnia (4) Hypokalemia: (5) Hypomagnesemia: (6) Altered mental status: QUALIFIERS: Altered mental status type: unspecified Qualified Code(s): R41.82 - Altered mental status, unspecified (7) Chronic osteomyelitis of spine: PLAN: Plan Acute hypoxic respiratory failure * Likely multifactorial due to acute COVID-19 plus what appears to be acute heart failure exacerbation with pleural effusions. No baseline cardiac studies available in our system. I feel less likely this is pneumonia and the fact that the patient has been afebrile and has a normal white count and had been on antibiotics prior to arrival. * Currently on BiPAP but FiO2 has been able to be weaned down from 70 to 30%. Acute heart failure exacerbation * Unclear type * IV furosemide * follow up echo Acute COVID-19 pneumonitis * I feel much to the changes on that x-ray are more likely due to CHF though bacterial pneumonia certainly could be a possibility though less likely with normal white count absence of fever. * Started on dexamethasone. Abnormal urinalysis * Acute cystitis ruled out. Patient only 25-50 white blood cells and patient does have bacteria and yeast but do not feel that these are pathologic. Patient is already on antibiotics with bank and pip-tazo. Will discontinue the Diflucan. * UCx showed mixed GPO, GNO. Doubt true infection. No additional work up nor treatment at this time. Bacteremia: * GPO in clusters. Repeat cultures. If positive, check echo. * On vancomycin already for spinal osteomyelitis. Hypokalemia/hypomagnesemia * Replaced and improved but still low. Will continue with the replacement. Acute Metabolic Encephalopathy * improved. * Secondary to respiratory failure. TSH, B12 and folate within normal limits. Avoid potentiating medications. Chronic Spinal Osteomyelitis * Patient was to be treated with vancomycin and ceftriaxone through the 01/12/2024. Currently on pip-tazo and vancomycin, will change back to CTX and vancomycin. . Will review the records to see when the actual stop date was and just accordingly. Chronic conditions * chronic atrial fibrillation: On rivaroxaban. VTE prophylaxis: Not indicated as patient is already on rivaroxaban. Charges/Coding Visit Charges Inpatient E&M: 96391 [facility] Hosp L3
[2024-01-02] MEDS: Vancomycin Trough/Random Due 1 LAB MC (09:08)
[2024-01-02 09:36] LABS: Vancomycin, Trough Level 43.5 ug/mL (5.0-15.0)
[2024-01-02] MEDS: Ceftriaxone 2 GM in 0.9% Normal Saline (50mL MB+) 50 ML IV ×2 (09:48→21:12)
[2024-01-02] MEDS: Potassium Chloride Oral Tablet 20 MEQ PO (09:48)
[2024-01-02] MEDS: Lactobacillis Acidophilus 1 CAP PO ×4 (09:48→21:14)
[2024-01-02] MEDS: Zinc Sulfate 50 mg zinc (220 mg) ORAL capsule PO (09:48)
[2024-01-02] MEDS: Ascorbic Acid 500 MG Tablet 1000 MG PO ×2 (09:48→17:45)
[2024-01-02] MEDS: Cholecalciferol (Vit D3) 125 MCG CAPSULE (5,000 UNITS) PO (09:48)
[2024-01-02] MEDS: Senna Tablet 1 TABLET PO (09:48)
[2024-01-02] MEDS: Multivitamins,Therapeutic Tablet 1 TABLET PO (09:48)
[2024-01-02] MEDS: Venlafaxine XR 75 MG Capsule PO (09:48)
[2024-01-02] MEDS: Furosemide 40 MG/4 ML Vial IV ×2 (09:49→17:44)
[2024-01-02] MEDS: Rivaroxaban 20 MG Tablet PO (09:49)
[2024-01-02] MEDS: Polyethylene Glycol 3350 17 GM PACKET PO (09:49)
[2024-01-02] MEDS: dexAMETHasone 10 MG/ML Vial 6 MG IV ×2 (09:49→21:11)
[2024-01-02] MEDS: FLU VACCINE **HIGH DOSE** TV 24-25 180 MCG/0.5 ML SYRINGE IM (09:50)
[2024-01-02] MEDS: Acetaminophen 325 MG Tablet 650 MG PO (09:50)
[2024-01-02] MEDS: Famotidine 200 MG/20 ML MDV 20 MG in 0.9% Normal Saline (Pres. free 8 ML 300 MG IV ×2 (09:50→21:06)
[2024-01-02] MEDS: Nystatin Powder 15gm Bottle 1 APPLIC TOPICAL ×2 (09:53→22:59)
--- NOTE | 2024-01-02 10:03 | PHA.PHARE_ITS ---
Consult Antibiotic Management Pharmacy has been consulted to manage selected antibiotic: Vancomycin Type of Intervention Type of Consult: Follow-up Prior Doses of Antibiotics Prior Doses of Antibiotics Received/Current Regimen: current dose is vanc 2000mg IV q12h Labs Labs: Sodium 143 mmol/L (136-145) 01/02/24 03:30 Potassium 4.0 mmol/L (3.5-5.1) 01/02/24 03:30 Chloride 108 mmol/L (98-107) H 01/02/24 03:30 Carbon Dioxide 29.0 mmol/L (21.0-32.0) 01/02/24 03:30 Anion Gap 6 (5-15) 01/02/24 03:30 BUN 23 mg/dL (7-18) H 01/02/24 03:30 Creatinine 0.66 mg/dL (0.55-1.02) 01/02/24 03:30 Est GFR (MDRD) Af Amer 113 mL/min (>60) 01/02/24 03:30 Est GFR (MDRD) Non-Af 93 mL/min (>60) 01/02/24 03:30 BUN/Creatinine Ratio 35.1 RATIO (10-20) H 01/02/24 03:30 Glucose 165 mg/dL (74-106) H 01/02/24 03:30 Vancomycin Trough 43.5 ug/mL (5.0-15.0) H 01/02/24 08:55 Microbiology Microbiology: Microbiology 12/31/23 18:35 Urine, Catheterized Urine Culture - Preliminary GNR Poss Pseudomonas sp GNR lactose forestry consultant GPC Poss Enterococcus sp 12/31/23 17:57 Blood Culture (Wb) - Other Blood Culture - Preliminary Staphylococcus species 12/31/23 18:35 Mucosa - Nose SARS-CoV-2, Influenza & RSV (PCR) - Final SARS-CoV-2 (COVID 19) Dosing Weight Weight used for dosin.9 kg Estimated Creatinine Clearance Estimated Creatinine Clearance: 83 ml/min Goal Trough Goal Trough: 15-20 mcg/mL Pharmacy Plan for Drug Dosing Pharmacy Plan for Drug Dosing: The vanc trough drawn at 08:55 today (approx 12 hours after the previous dose) was 43.5. This is well above goal range so will discontinue current dose. Will order a random level for approximately 24 hours from now tomorrow morning to see if dosing can be resumed at that time. Pharmacy Service will continue to monitor and adjust dosing as required. Follow-Up Labs Follow-Up Labs: Trough: Vancomycin (random) Date/Time Labs Ordered Labs to be done on [date and time ordered]: 01/03/24 10:00
--- NOTE | 2024-01-02 10:23 | CASEMGMT ---
Addendum entered by Kassie Dent 01/02/24 11:10: Social Work SW received message from [facility] that her current auth is good until tomorrow night (01/02). New precert not needed if pt discharges before midnight on 01/02. Plan: [facility], when medically ready ANGELICA Hernandez Original Note: Social Work Clinical updates sent to [facility] and requested precert be started. Plan: [facility], pending precert ANGELICA Hernandez
--- NOTE | 2024-01-02 13:42 | CON.PCM.ID_ITS ---
Assessment & Plan Assessment/Plan (1) Chronic osteomyelitis of spine: PLAN: Pending request for records from . On vanc/ceftriaxone q12h until 01/15/24. ID at was Dr. Megan Osorio. For covid, will add remdesivir given hypoxia. Cont dex. Reports prior vaccination. 1 of 1 (+) bcx with staph on admit. Repeat bcx pending. Does have picc in place. Abx as above. Will follow, thank you, d/w Dr. Last (2) COVID-19: (3) Positive blood culture: HPI Consult Data Date of Consult: 01/02/24 HPI Narrative Reason for Consultation: bacteremia HPI Narrative: DARYN SHAH, is a 78 F with h/o DM, admit in November with acute onset of back pain. Went to [place] [facility], transferred after 3 days to [facility]. Seen by Dr. Megan Osorio with ID, taken to OR by spine surgery for I&D and hardware placement. Discharged with picc and iv vanc/ceftriaxone until 01/15/24 at [facility]. Did ok at facility until new onset confusion, dyspnea on 12/30. Sent to ED here, admitted on vanc/zosyn. Found to be covid (+), put on O2, started dex. Mental status improved today, feeling better, denies cough, no n/v/d, no issues with picc. Full ROS performed and neg except as noted above. PFSH Home Medications ?Medication ?Instructions ?Recorded ?Last Taken ?Type ceftriaxone 2 gram intravenous 2 g IV BID 12/31/23 Unknown History solution cholecalciferol (vitamin D3) 25 25 mcg PO DAILY 12/31/23 Unknown History mcg (1,000 unit) capsule cyclobenzaprine 5 mg tablet 5 mg PO Q8H 12/31/23 Unknown History insulin lispro 100 unit/mL See Protocol subcut .TIDCM&HS 12/31/23 Unknown History subcutaneous pen (Humalog KwikPen (U-100) Insulin) multivitamin (Daily Multi-Vitamin 1 tab PO DAILY 12/31/23 Unknown History tablet) nystatin 100,000 unit/gram topical 1 applic topical BID 12/31/23 Unknown History powder polyethylene glycol 3350 17 17 g PO BID 12/31/23 Unknown History gram/dose oral powder potassium chloride 10 mEq 20 meq PO DAILY 12/31/23 Unknown History capsule,extended release rivaroxaban 20 mg tablet (Xarelto) 20 mg PO DAILY 12/31/23 Unknown History sennosides 8.6 mg tablet 17.2 mg PO BID 12/31/23 Unknown History vancomycin 2 gram intravenous 2 g IV Q36H 12/31/23 Unknown History solution venlafaxine 75 mg capsule,extended 75 mg PO DAILY 12/31/23 Unknown History release 24 hr Allergy/AdvReac Type Severity Reaction Status Date / Time No Known Allergies Allergy Verified 12/17/23 18:53 Social History Smoking Status: Never smoker Physical Exam Const alert and no apparent distress General Appearance: cooperative Orientation / Consciousness: confused HEENT normocephalic and head/scalp atraumatic Eyes PERRL and EOMs intact bilaterally Neck supple and No nodes Resp Auscultation: diminished lung sounds Cardio no murmurs Rate: tachycardic GI soft to palpation, non-tender and non-distended Extremity General Extremity: edema Skin no rashes or lesions noted Neuro CN's II-XII intact bilaterally Lab / Micro Data Attestation: I reviewed the patient's lab results. 01/01/24 04:42 01/02/24 03:30 Labs: Laboratory Results - last 24 hr 12/31/23 18:35: Urine Color Rita, Urine Clarity Clear, Urine pH 6.0, Ur Specific [place] 1.020, Urine Protein 30 H, Urine Glucose (UA) Normal, Urine Ketones Negative, Urine Occult Blood Negative, Urine Nitrite Negative, Urine Bilirubin Negative, Urine Urobilinogen Normal, Ur Leukocyte Esterase 100 H, Urine RBC 0-5 SEEN, Urine WBC 25-50 SEEN, Ur Squamous Epith Cells 0 SEEN, Urine Bacteria 2+, Urine Mucus 2+, Urine Yeast 2+ 01/02/24 03:30: Sodium 143, Potassium 4.0, Chloride 108 H, Carbon Dioxide 29.0, Anion Gap 6, BUN 23 H, Creatinine 0.66, Estim Creat Clear Calc 83.81, Est GFR (MDRD) Af Amer 113, Est GFR (MDRD) Non-Af 93, BUN/Creatinine Ratio 35.1 H, G lucose 165 H, Calcium 8.1 L, Magnesium 1.7 01/02/24 08:55: Vancomycin Trough 43.5 H Micro: Microbiology 12/31/23 18:35 Urine, Catheterized Urine Culture - Preliminary GNR Poss Pseudomonas sp GNR lactose manager lighting GPC Poss Enterococcus sp 12/31/23 17:57 Blood Culture (Wb) - Other Blood Culture - Preliminary Staphylococcus species Imaging Radiology Impression Echocardiogram 01/01/24 07:30 Interpretation Summary The estimated ejection fraction is 35 %. There is evidence of diastolic dysfunction. There is moderate biatrial dilatation. Mild (1+) mitral valve insufficiency. Moderate aortic stenosis. Ordering Physician: Ever Last Performed By: Red Farooq RCS
[2024-01-02] MEDS: Remdesivir 200 MG in 0.9% Normal Saline (250mL Bag) 210 ML 125 MG IV (14:25)
[2024-01-02] MEDS: Morphine 2 MG/ML Syringe IV (18:29)
[2024-01-02] MEDS: 0.9% Saline Lock 10 ML Syringe IV (21:08)
[2024-01-03] VITALS (7 sets, daily range): BP systolic 113–121; BP diastolic 69–83; PULSE 71–94; RESP 18; TEMP 36.4–36.9; O2SAT 92–99; BMI 46.9
[2024-01-03] MEDS: Acetaminophen 325 MG Tablet 650 MG PO (00:37)
[2024-01-03] MEDS: cycloBENZAPRine HCl 5 MG TABLET PO ×3 (05:41→23:27)
[2024-01-03 06:59] LABS: Absolute Lymphocyte Count 1.06 X10^3/uL (0.83-4.51); Absolute Neutrophil Count 11.3 X10^3/uL (2.0-7.7); Basophil# 0.02 X10^3/uL; Basophil% 0.2 % (0-1); Hematocrit 33.7 % (37-47); Lymphocyte # 1.06 X10^3/ul (0.83-4.51); Lymphocyte % 8.2 % (19-41); Mean Corp Hgb Conc 29.7 g/dL (32-36); Mean Corpuscular Hgb 25.7 pg (27.0-32.0); Mean Corpuscular Volume 86.6 fL (81-99); Mean Platelet Vol. 9.4 fl (6.2-12.0); Monocyte# 0.45 X10^3/uL; Monocyte% 3.5 % (0-10); NRBC Flagged by Analyzer 0 % (0-5); Neutrophil # 11.25 X10^3/uL (2.7-7.7); Neutrophil % 87.5 % (47-70); Platelet Count 287 K/mm3 (150-450); RBC Distribution Width CV 18.1 % (11.6-14.6); RBC Distribution Width SD 57.3 fl (35.1-43.9); Red Blood Count 3.89 M/mm3 (4.2-5.4); White Blood Count 12.9 K/mm3 (4.4-11.0)
[2024-01-03 07:37] LABS: ALB/GLOB Ratio 0.6 RATIO (0.9-2.4); AST(SGOT) 27 U/L (15-37); Alanine Aminotransfer ALT/SGPT 18 U/L (13-56); Albumin, Serum 1.8 g/dL (3.2-5.0); Alkaline Phosphatase 141 U/L (45-117); Anion Gap 8 (5-15); BUN 26 mg/dL (7-18); Calcium,Total 7.9 mg/dL (8.5-10.1); Chloride 107 mmol/L (98-107); Creatinine, Serum 1.04 mg/dL (0.55-1.02); EST Glomerular Filtration Rate 55 mL/min (>60); Est Glom Filt Rate - Afr Amer 66 mL/min (>60); Estimated Creatinine Clearance 64.35 ml/min; Glucose 183 mg/dL (74-106); Potassium 3.8 mmol/L (3.5-5.1); Protein, Total 4.8 g/dL (6.4-8.2); Sodium Level 142 mmol/L (136-145)
[2024-01-03] MEDS: Potassium Chloride Oral Tablet 20 MEQ PO (09:07)
[2024-01-03] MEDS: Venlafaxine XR 75 MG Capsule PO (09:08)
[2024-01-03] MEDS: Cholecalciferol (Vit D3) 125 MCG CAPSULE (5,000 UNITS) PO (09:08)
[2024-01-03] MEDS: Lactobacillis Acidophilus 1 CAP PO ×4 (09:08→23:27)
[2024-01-03] MEDS: Multivitamins,Therapeutic Tablet 1 TABLET PO (09:08)
[2024-01-03] MEDS: Ascorbic Acid 500 MG Tablet 1000 MG PO ×2 (09:08→17:09)
[2024-01-03] MEDS: Rivaroxaban 20 MG Tablet PO (09:08)
[2024-01-03] MEDS: Zinc Sulfate 50 mg zinc (220 mg) ORAL capsule PO (09:08)
[2024-01-03] MEDS: Famotidine 200 MG/20 ML MDV 20 MG in 0.9% Normal Saline (Pres. free 8 ML 300 MG IV ×2 (09:10→22:35)
[2024-01-03] MEDS: 0.9 % NaCl (Sterile) Posiflush 10 mL IV ×2 (09:10→17:09)
[2024-01-03] MEDS: Furosemide 40 MG/4 ML Vial IV ×2 (09:10→17:09)
[2024-01-03] MEDS: dexAMETHasone 10 MG/ML Vial 6 MG IV ×2 (09:10→23:26)
[2024-01-03] MEDS: Nystatin Powder 15gm Bottle 1 APPLIC TOPICAL ×2 (09:11→23:27)
[2024-01-03] MEDS: Ceftriaxone 2 GM in 0.9% Normal Saline (50mL MB+) 50 ML IV ×2 (09:11→22:34)
--- NOTE | 2024-01-03 09:11 | PN.HOSP_ITS ---
Reason for Visit Reason for Visit: Diagnoses Hypomagnesemia (12/31/23) Hypokalemia (12/31/23) Pneumonia, unspecified organism (12/31/23) Pleural effusion, not elsewhere classified (12/31/23) Acute respiratory failure with hypoxia (12/31/23) Acute respiratory failure with hypercapnia (12/31/23) Respiratory failure, unspecified with hypoxia (12/31/23) Respiratory failure, unspecified with hypercapnia (12/31/23) Osteomyelitis of vertebra, site unspecified (12/31/23) Altered mental status, unspecified (12/31/23) Bacteremia (12/31/23) COVID-19 (12/31/23) Subjective Subjective Feeling well. Breathing well. Objective Data Objective Data Vital Signs: Vital Signs Temp Pulse Resp BP Pulse Ox O2 Del Method O2 Flow Rate 36.9 C 71 18 113/77 96 Room Air 4 01/03/24 09:05 01/03/24 09:05 01/03/24 09:05 01/03/24 09:05 01/03/24 09:05 01/03/24 09:05 01/02/24 14:00 FiO2 40 01/01/24 16:45 Oxygen Flow Rate (L/min) 4 Oxygen Delivery Method Room Air Weight: 132.5 kg Body Mass Index (BMI) 46.9 Intake & Output: Intake and Output for Last 24 Hours 01/01/24 01/02/24 01/03/24 23:59 23:59 23:59 Intake Total 2550.5 / 2700.5 520 / 520 300 / 300 Output Total 2100 / 2100 575 / 575 200 / 200 Balance 450.5 / 600.5 -55 / -55 100 / 100 Lab / Micro Data 01/03/24 06:26 01/03/24 06:26 Labs: Laboratory Results - last 24 hr 12/31/23 18:35: Urine Color Rita, Urine Clarity Clear, Urine pH 6.0, Ur Specific [place] 1.020, Urine Protein 30 H, Urine Glucose (UA) Normal, Urine Ketones Negative, Urine Occult Blood Negative, Urine Nitrite Negative, Urine Bilirubin Negative, Urine Urobilinogen Normal, Ur Leukocyte Esterase 100 H, Urine RBC 0-5 SEEN, Urine WBC 25-50 SEEN, Ur Squamous Epith Cells 0 SEEN, Urine Bacteria 2+, Urine Mucus 2+, Urine Yeast 2+ 01/02/24 08:55: Vancomycin Trough 43.5 H 01/03/24 06:26: WBC 12.9 H, RBC 3.89 L, Hgb 10.0 L, Hct 33.7 L, MCV 86.6, MCH 25.7 L, MCHC 29.7 L, RDW Std Deviation 57.3 H, RDW Coeff of Josiah 18.1 H, Plt Count 287, MPV 9.4, Immature Gran % (Auto) 0.600, Neut % (Auto) 87.5 H, Lymph % (Auto) 8.2 L, [place] % (Auto) 3.5, Eos % (Auto) 0.0, Baso % (Auto) 0.2, Absolute Neuts (auto) 11.3 H, Absolute Lymphs (auto) 1.06, Nucleated RBC % 0, Sodium 142, Potassium 3.8, Chloride 107, Carbon Dioxide 27.0, Anion Gap 8, BUN 26 H, C reatinine 1.04 H, Estim Creat Clear Calc 64.35, Est GFR (MDRD) Af Amer 66, Est GFR (MDRD) Non-Af 55 L, BUN/Creatinine Ratio 25.0 H, Glucose 183 H, Calcium 7.9 L, Total Bilirubin 0.30, AST 27, ALT 18, Alkaline Phosphatase 141 H, Total Protein 4.8 L, Albumin 1.8 L, Globulin 3.0, Albumin/Globulin Ratio 0.6 L Micro: Microbiology 12/31/23 18:35 Urine, Catheterized Urine Culture - Preliminary Pseudomonas aeruginosa Vancomycin Resist. E. faecium ESBL Escherichia coli 12/31/23 17:57 Blood Culture (Wb) - Other Blood Culture - Final Staphylococcus haemolyticus 12/31/23 18:35 Mucosa - Nose SARS-CoV-2, Influenza & RSV (PCR) - Final SARS-CoV-2 (COVID 19) Radiography Diagnostic Testing: Radiology Impression Echocardiogram 01/01/24 07:30 Interpretation Summary The estimated ejection fraction is 35 %. There is evidence of diastolic dysfunction. There is moderate biatrial dilatation. Mild (1+) mitral valve insufficiency. Moderate aortic stenosis. Ordering Physician: Ever Last Performed By: Red Farooq RCS Physical Exam Const alert and no apparent distress HEENT head/scalp atraumatic and moist oral mucous membranes Resp normal respiratory effort, no retractions, no use of accessory muscles and clear to auscultation bilaterally Cardio regular rate, regular rhythm, S1 normal heart sound and S2 normal heart sound GI normal to inspection, nondistended, normoactive bowel sounds, soft to palpation, non-tender and non-distended Extremity General Extremity: edema bilateral lower extremity Details: moderate Assessment & Plan Assessment/Plan (1) Pneumonia: QUALIFIERS: Laterality: right Lung location: lower lobe of lung Pneumonia type: due to unspecified organism Qualified Code(s): J18.9 - Pneumonia, unspecified organism (2) COVID-19: (3) Respiratory failure with hypoxia and hypercapnia: QUALIFIERS: Chronicity: acute Qualified Code(s): J96.01 - Acute respiratory failure with hypoxia; J96.02 - Acute respiratory failure with hypercapnia (4) Hypokalemia: (5) Hypomagnesemia: (6) Altered mental status: QUALIFIERS: Altered mental status type: unspecified Qualified Code(s): R41.82 - Altered mental status, unspecified (7) Chronic osteomyelitis of spine: PLAN: Plan Acute hypoxic respiratory failure * Resolved * likely multifactorial due to acute COVID-19 plus what appears to be acute heart failure exacerbation with pleural effusions. No baseline cardiac studies available in our system. I feel less likely this is pneumonia and the fact that the patient has been afebrile and has a normal white count and had been on antibiotics prior to arrival. * Currently on BiPAP but FiO2 has been able to be weaned down from 70 to 30%. Acute HFrEF * EF noted to be 35%. * Continue IV furosemide Acute COVID-19 pneumonitis * I feel much to the changes on that x-ray are more likely due to CHF though bacterial pneumonia certainly could be a possibility though less likely with normal white count absence of fever. * Started on dexamethasone and remdesivir. Abnormal urinalysis * Acute cystitis ruled out. Patient only 25-50 white blood cells and patient does have bacteria and yeast but do not feel that these are pathologic. Patient is already on antibiotics with bank and pip-tazo. Will discontinue the Diflucan. * UCx showed less than thousand Pseudomonas, less than the thousand VRE, less than 1000 ESBL E. coli. Bacteremia: * Blood culture on the showed staph coccus hemolyticus. Repeat blood culture on the pending. Check echo. * On vancomycin already for spinal osteomyelitis. Hypokalemia/hypomagnesemia * Replaced and improved but still low. Will continue with the replacement. Acute Metabolic Encephalopathy * improved. * Secondary to respiratory failure. TSH, B12 and folate within normal limits. Avoid potentiating medications. Chronic Spinal Osteomyelitis * Patient was to be treated with vancomycin and ceftriaxone through the 01/12/2024. Currently on pip-tazo and vancomycin, will change back to CTX and vancomycin. . Will review the records to see when the actual stop date was and just accordingly. Chronic conditions * chronic atrial fibrillation: On rivaroxaban. VTE prophylaxis: Not indicated as patient is already on rivaroxaban. Charges/Coding Visit Charges Inpatient E&M: 15770 [facility] Hosp L2
[2024-01-03] MEDS: Remdesivir 100 MG in 0.9% Normal Saline (250mL Bag) 230 ML 125 MG IV (10:12)
[2024-01-03 10:52] LABS: Vancomycin, Random Level 34.5 ug/mL (0.0-15.0)
--- NOTE | 2024-01-03 10:53 | PCM.PN.ID ---
Physical Exam Narrative Feeling better, out of icu, no fever, no dyspnea, no n/v/d Const alert and no apparent distress General Appearance: cooperative Resp Auscultation: diminished lung sounds Cardio regular rate and regular rhythm GI soft to palpation, non-tender and non-distended Skin no rashes or lesions noted ID ID: Route of nutrition/ use of supplements: [] Nutritional Intake: [] IV Site: [] Boss Catheter: [] Assessment & Plan Assessment/Plan (1) Chronic osteomyelitis of spine: PLAN: Pending request for records from . On vanc/ceftriaxone q12h until 01/15/24. ID at was Dr. Megan Osorio. For covid, cont dex and remdesivir Reports prior vaccination. 1 of 1 (+) bcx with CoNS on admit. Repeat bcx pending. Does have picc in place. Abx as above. Will follow, d/w Dr. Last (2) COVID-19: (3) Positive blood culture:
--- NOTE | 2024-01-03 11:49 | PCM.RX.CS ---
Consult Antibiotic Management Pharmacy has been consulted to manage selected antibiotic: Vancomycin Type of Intervention Type of Consult: Follow-up Labs Labs: Sodium 142 mmol/L (136-145) 01/03/24 06:26 Potassium 3.8 mmol/L (3.5-5.1) 01/03/24 06:26 Chloride 107 mmol/L (98-107) 01/03/24 06:26 Carbon Dioxide 27.0 mmol/L (21.0-32.0) 01/03/24 06:26 Anion Gap 8 (5-15) 01/03/24 06:26 BUN 26 mg/dL (7-18) H 01/03/24 06:26 Creatinine 1.04 mg/dL (0.55-1.02) H 01/03/24 06:26 Est GFR (MDRD) Af Amer 66 mL/min (>60) 01/03/24 06:26 Est GFR (MDRD) Non-Af 55 mL/min (>60) L 01/03/24 06:26 BUN/Creatinine Ratio 25.0 RATIO (10-20) H 01/03/24 06:26 Glucose 183 mg/dL (74-106) H 01/03/24 06:26 Vancomycin Trough 43.5 ug/mL (5.0-15.0) H 01/02/24 08:55 Random Vancomycin 34.5 ug/mL (0.0-15.0) H 01/03/24 10:15 Microbiology Microbiology: Microbiology 12/31/23 18:35 Urine, Catheterized Urine Culture - Preliminary Pseudomonas aeruginosa Vancomycin Resist. E. faecium ESBL Escherichia coli 12/31/23 17:57 Blood Culture (Wb) - Other Blood Culture - Final Staphylococcus haemolyticus 12/31/23 18:35 Mucosa - Nose SARS-CoV-2, Influenza & RSV (PCR) - Final SARS-CoV-2 (COVID 19) Goal Trough Goal Trough: 15-20 mcg/mL Pharmacy Plan for Drug Dosing Pharmacy Plan for Drug Dosing: VANCOMYCIN LEVEL RECEIVED Current Vancomycin Dose: ON HOLD- last dose was 2000mg IV given 12/31 @8809 Number of Doses Received: current regimen ON HOLD Vancomycin Level: 34.5 Hours Since Last Dose: 37hr Renal Function: 1.04 Renal Function Trend: increase in SCr from initiation of vancomycin Vancomycin Plan/Comments: The patient had a random vancomycin trough drawn which resulted in a value of 34.5 (Goal 15-20). The trough is still significantly elevated despite not having any additional doses of vancomycin. Will continue to hold vancomycin at this time and recheck a trough tomorrow morning. Will resume vancomycin dosing once trough is below 20. Pending Level: *RANDOM* 01/04/24 @0600 with AM labs Pharmacy Service will continue to monitor and adjust dosing as required.
[2024-01-04] VITALS (7 sets, daily range): BP systolic 122–128; BP diastolic 64–101; PULSE 75–110; RESP 16–18; TEMP 36.4–36.9; O2SAT 94–100; BMI 49.1
[2024-01-04] MEDS: cycloBENZAPRine HCl 5 MG TABLET PO ×3 (05:02→20:53)
[2024-01-04 07:29] LABS: Absolute Lymphocyte Count 0.74 X10^3/uL (0.83-4.51); Absolute Neutrophil Count 4.8 X10^3/uL (2.0-7.7); Basophil# 0.01 X10^3/uL; Basophil% 0.2 % (0-1); Lymphocyte # 0.74 X10^3/ul (0.83-4.51); Lymphocyte % 12.9 % (19-41); Mean Corpuscular Hgb 25.3 pg (27.0-32.0); Mean Corpuscular Volume 84.3 fL (81-99); Mean Platelet Vol. 9.4 fl (6.2-12.0); Monocyte# 0.14 X10^3/uL; Monocyte% 2.4 % (0-10); NRBC Flagged by Analyzer 0 % (0-5); Neutrophil % 83.5 % (47-70); Platelet Count 219 K/mm3 (150-450); RBC Distribution Width CV 17.7 % (11.6-14.6); RBC Distribution Width SD 54.4 fl (35.1-43.9); Red Blood Count 3.56 M/mm3 (4.2-5.4); White Blood Count 5.8 K/mm3 (4.4-11.0)
[2024-01-04 08:15] LABS: ALB/GLOB Ratio 0.6 RATIO (0.9-2.4); AST(SGOT) 21 U/L (15-37); Alanine Aminotransfer ALT/SGPT 17 U/L (13-56); Albumin, Serum 1.7 g/dL (3.2-5.0); Alkaline Phosphatase 130 U/L (45-117); Anion Gap 6 (5-15); BUN 27 mg/dL (7-18); BUN/Creat Ratio 24.8 RATIO (10-20); Calcium,Total 7.9 mg/dL (8.5-10.1); Chloride 105 mmol/L (98-107); Creatinine, Serum 1.09 mg/dL (0.55-1.02); EST Glomerular Filtration Rate 52 mL/min (>60); Est Glom Filt Rate - Afr Amer 63 mL/min (>60); Estimated Creatinine Clearance 63.06 ml/min; Globulin 2.9 g/dL (2.2-4.2); Glucose 233 mg/dL (74-106); Potassium 3.3 mmol/L (3.5-5.1); Protein, Total 4.6 g/dL (6.4-8.2); Sodium Level 140 mmol/L (136-145)
--- NOTE | 2024-01-04 08:35 | PCM.PN.HOSP ---
Reason for Visit Reason for Visit: Diagnoses Hypomagnesemia (12/31/23) Hypokalemia (12/31/23) Pneumonia, unspecified organism (12/31/23) Pleural effusion, not elsewhere classified (12/31/23) Acute respiratory failure with hypoxia (12/31/23) Acute respiratory failure with hypercapnia (12/31/23) Respiratory failure, unspecified with hypoxia (12/31/23) Respiratory failure, unspecified with hypercapnia (12/31/23) Osteomyelitis of vertebra, site unspecified (12/31/23) Altered mental status, unspecified (12/31/23) Bacteremia (12/31/23) COVID-19 (12/31/23) Subjective Subjective Feeling well. Still with LE edema. Objective Data Objective Data Vital Signs: Vital Signs Temp Pulse Resp BP Pulse Ox O2 Del Method O2 Flow Rate 36.4 C L 100 18 128/64 H 100 Room Air 4 01/04/24 03:05 01/04/24 03:05 01/04/24 03:05 01/04/24 03:05 01/04/24 03:05 01/04/24 08:15 01/02/24 14:00 FiO2 40 01/01/24 16:45 Oxygen Flow Rate (L/min) 4 Oxygen Delivery Method Room Air Weight: 138.5 kg Body Mass Index (BMI) 49.1 Intake & Output: Intake and Output for Last 24 Hours 01/02/24 01/03/24 01/04/24 23:59 23:59 23:59 Intake Total 520 / 520 670 / 670 360 / 360 Output Total 575 / 575 200 / 200 1050 / 1050 Balance -55 / -55 470 / 470 -690 / -690 Lab / Micro Data 01/04/24 06:59 01/04/24 06:59 Labs: Laboratory Results - last 24 hr 01/03/24 10:15: Random Vancomycin 34.5 H 01/04/24 06:59: WBC 5.8, RBC 3.56 L, Hgb 9.0 L, Hct 30.0 L, MCV 84.3, MCH 25.3 L, MCHC 30.0 L, RDW Std Deviation 54.4 H, RDW Coeff of Josiah 17.7 H, Plt Count 219, MPV 9.4, Immature Gran % (Auto) 1.000 H, Neut % (Auto) 83.5 H, Lymph % (Auto) 12.9 L, [place] % (Auto) 2.4, Eos % (Auto) 0.0, Baso % (Auto) 0.2, Absolute Neuts (auto) 4.8, Absolute Lymphs (auto) 0.74 L, Nucleated RBC % 0, Sodium 140, Potassium 3.3 L, Chloride 105, Carbon Dioxide 29.0, Anion Gap 6, BUN 27 H, Creatinine 1.09 H, Estim Creat Clear Calc 63.06, Est GFR (MDRD) Af Amer 63, Est GFR (MDRD) Non-Af 52 L, BUN/Creatinine Ratio 24.8 H, Glucose 233 H, Calcium 7.9 L, Total Bilirubin 0.30, AST 21, ALT 17, Alkaline Phosphatase 130 H, Total Protein 4.6 L, Albumin 1.7 L, Globulin 2.9, Albumin/Globulin Ratio 0.6 L, Random Vancomycin 29.0 H Micro: Microbiology 12/31/23 18:35 Urine, Catheterized Urine Culture - Final Pseudomonas aeruginosa Vancomycin Resist. E. faecium ESBL Escherichia coli 12/31/23 17:57 Blood Culture (Wb) - Other Blood Culture - Final Staphylococcus haemolyticus 12/31/23 18:35 Mucosa - Nose SARS-CoV-2, Influenza & RSV (PCR) - Final SARS-CoV-2 (COVID 19) Physical Exam Const alert and no apparent distress HEENT head/scalp atraumatic and moist oral mucous membranes Resp normal respiratory effort, no retractions, no use of accessory muscles and clear to auscultation bilaterally Cardio regular rate, regular rhythm, S1 normal heart sound and S2 normal heart sound GI normal to inspection, nondistended, normoactive bowel sounds, soft to palpation, non-tender and non-distended Extremity General Extremity: edema bilateral lower extremity Details: severe Assessment & Plan Assessment/Plan (1) Pneumonia: QUALIFIERS: Laterality: right Lung location: lower lobe of lung Pneumonia type: due to unspecified organism Qualified Code(s): J18.9 - Pneumonia, unspecified organism (2) COVID-19: (3) Respiratory failure with hypoxia and hypercapnia: QUALIFIERS: Chronicity: acute Qualified Code(s): J96.01 - Acute respiratory failure with hypoxia; J96.02 - Acute respiratory failure with hypercapnia (4) Hypokalemia: (5) Hypomagnesemia: (6) Altered mental status: QUALIFIERS: Altered mental status type: unspecified Qualified Code(s): R41.82 - Altered mental status, unspecified (7) Chronic osteomyelitis of spine: PLAN: Plan Acute hypoxic respiratory failure Resolved likely multifactorial due to acute COVID-19 plus what appears to be acute heart failure exacerbation with pleural effusions. No baseline cardiac studies available in our system. I feel less likely this is pneumonia and the fact that the patient has been afebrile and has a normal white count and had been on antibiotics prior to arrival. Currently on BiPAP but FiO2 has been able to be weaned down from 70 to 30%. Acute HFrEF EF noted to be 35%. Continue IV furosemide Acute COVID-19 pneumonitis I feel much to the changes on that x-ray are more likely due to CHF though bacterial pneumonia certainly could be a possibility though less likely with normal white count absence of fever. Started on dexamethasone and remdesivir. Abnormal urinalysis Acute cystitis ruled out. Patient only 25-50 white blood cells and patient does have bacteria and yeast but do not feel that these are pathologic. Patient is already on antibiotics with bank and pip-tazo. Will discontinue the Diflucan. UCx showed less than thousand Pseudomonas, less than the thousand VRE, less than 1000 ESBL E. coli. Bacteremia: Blood culture on the showed staph coccus hemolyticus. Repeat blood culture on the pending. TTE showed no vegetations On vancomycin already for spinal osteomyelitis. Hypokalemia/hypomagnesemia Replaced and improved but still low. Will continue with the replacement. Acute Metabolic Encephalopathy improved. Secondary to respiratory failure. TSH, B12 and folate within normal limits. Avoid potentiating medications. Chronic Spinal Osteomyelitis Patient was to be treated with vancomycin and ceftriaxone through the 01/12/2024. Currently on pip-tazo and vancomycin, will change back to CTX and vancomycin. . Will review the records to see when the actual stop date was and just accordingly. Chronic conditions chronic atrial fibrillation: On rivaroxaban. VTE prophylaxis: Not indicated as patient is already on rivaroxaban. Disposition: planning on discharge to SNF pending insurance authorization. Charges/Coding Visit Charges Inpatient E&M: 23840 Subs Hosp L2
--- NOTE | 2024-01-04 09:19 | CASEMGMT ---
Addendum entered by Bethany Colbert 01/04/24 12:12: Msg received from [facility] and auth has not been obtained. Bethany Colbert DC Planning Asst. Addendum entered by Bethany Colbert 01/04/24 11:43: [facility] has obtained a new auth to admit. Bethany Colbert DC Planning Asst. Original Note: Discharge Planning Updates sent to [facility] via [employer]. Requested that precert be submitted again (previous auth ). Bethany Colbert DC Planning Asst.
[2024-01-04] MEDS: 0.9 % NaCl (Sterile) Posiflush 10 mL IV ×2 (09:23→17:44)
[2024-01-04] MEDS: Famotidine 200 MG/20 ML MDV 20 MG in 0.9% Normal Saline (Pres. free 8 ML 300 MG IV ×2 (09:23→20:51)
[2024-01-04] MEDS: dexAMETHasone 10 MG/ML Vial 6 MG IV ×2 (09:23→20:54)
[2024-01-04] MEDS: Ascorbic Acid 500 MG Tablet 1000 MG PO ×2 (09:24→17:44)
[2024-01-04] MEDS: Multivitamins,Therapeutic Tablet 1 TABLET PO (09:24)
[2024-01-04] MEDS: Lactobacillis Acidophilus 1 CAP PO ×4 (09:24→20:51)
[2024-01-04] MEDS: Cholecalciferol (Vit D3) 125 MCG CAPSULE (5,000 UNITS) PO (09:24)
[2024-01-04] MEDS: Rivaroxaban 20 MG Tablet PO (09:24)
[2024-01-04] MEDS: Potassium Chloride Oral Tablet 20 MEQ PO (09:24)
[2024-01-04] MEDS: Venlafaxine XR 75 MG Capsule PO (09:24)
[2024-01-04] MEDS: Zinc Sulfate 50 mg zinc (220 mg) ORAL capsule PO (09:24)
[2024-01-04] MEDS: Furosemide 40 MG/4 ML Vial IV ×2 (09:24→17:44)
[2024-01-04] MEDS: Nystatin Powder 15gm Bottle 1 APPLIC TOPICAL ×2 (09:25→21:02)
[2024-01-04] MEDS: Ceftriaxone 2 GM in 0.9% Normal Saline (50mL MB+) 50 ML IV ×2 (09:29→20:54)
--- NOTE | 2024-01-04 09:29 | PCM.RX.CS ---
Consult Antibiotic Management Pharmacy has been consulted to manage selected antibiotic: Vancomycin Type of Intervention Type of Consult: Follow-up Labs Labs: Sodium 140 mmol/L (136-145) 01/04/24 06:59 Potassium 3.3 mmol/L (3.5-5.1) L 01/04/24 06:59 Chloride 105 mmol/L (98-107) 01/04/24 06:59 Carbon Dioxide 29.0 mmol/L (21.0-32.0) 01/04/24 06:59 Anion Gap 6 (5-15) 01/04/24 06:59 BUN 27 mg/dL (7-18) H 01/04/24 06:59 Creatinine 1.09 mg/dL (0.55-1.02) H 01/04/24 06:59 Est GFR (MDRD) Af Amer 63 mL/min (>60) 01/04/24 06:59 Est GFR (MDRD) Non-Af 52 mL/min (>60) L 01/04/24 06:59 BUN/Creatinine Ratio 24.8 RATIO (10-20) H 01/04/24 06:59 Glucose 233 mg/dL (74-106) H 01/04/24 06:59 Vancomycin Trough 43.5 ug/mL (5.0-15.0) H 01/02/24 08:55 Random Vancomycin 29.0 ug/mL (0.0-15.0) H 01/04/24 06:59 Microbiology Microbiology: Microbiology 01/02/24 08:55 Blood Culture (Wb) - Left Forearm Blood Culture - Preliminary No growth in 48 hours. 12/31/23 18:35 Urine, Catheterized Urine Culture - Final Pseudomonas aeruginosa Vancomycin Resist. E. faecium ESBL Escherichia coli 12/31/23 17:57 Blood Culture (Wb) - Other Blood Culture - Final Staphylococcus haemolyticus 12/31/23 18:35 Mucosa - Nose SARS-CoV-2, Influenza & RSV (PCR) - Final SARS-CoV-2 (COVID 19) Dosing Weight Weight used for dosin.5 kg Estimated Creatinine Clearance Estimated Creatinine Clearance: 63 ML/MIN Goal Trough Goal Trough: 15-20 mcg/mL Pharmacy Plan for Drug Dosing Pharmacy Plan for Drug Dosing: The vanc random level drawn at 06:59 this morning was 29.0. This is still above 20 so no dose needed today. Will repeat random level in approx 36 hours. If that level is <20, will be able to resume dosing at a newly calculated dose at that time. Pharmacy Service will continue to monitor and adjust dosing as required. Follow-Up Labs Follow-Up Labs: Trough: Vancomycin (random) Date/Time Labs Ordered Labs to be done on [date and time ordered]: 01/05/24 20:00
[2024-01-04] MEDS: Remdesivir 100 MG in 0.9% Normal Saline (250mL Bag) 230 ML 125 MG IV (10:09)
--- NOTE | 2024-01-04 12:49 | CASEMGMT ---
DANICA sent a copy of the two IV antibiotics patient will be on at discharge to [facility]. Deepali Lopez [employer] COUNSE[employer]
[2024-01-04] MEDS: Acetaminophen 325 MG Tablet 650 MG PO (20:52)
[2024-01-04] MEDS: MELATONIN 3 MG TABLET 6 MG PO (20:53)
[2024-01-04] MEDS: Temazepam 15 MG Capsule PO (20:53)
--- NOTE | 2024-01-05 00:48 | NURSING ---
pt slightly confused after the restoril was given, dozing at intervals, waking, confused and tangled in the wires.
[2024-01-05 00:49] VITALS: RESP 16
[2024-01-05 03:00] VITALS: BP 93/71; PULSE 62; RESP 16; TEMP 36.7; O2SAT 98
[2024-01-05 04:59] VITALS: BMI 46.0
[2024-01-05] MEDS: cycloBENZAPRine HCl 5 MG TABLET PO ×3 (06:45→21:35)
[2024-01-05 07:34] LABS: Hematocrit 30.5 % (37-47); Hemoglobin 9.1 g/dL (12.0-15.0); Mean Corp Hgb Conc 29.8 g/dL (32-36); Mean Corpuscular Hgb 25.3 pg (27.0-32.0); Mean Platelet Vol. 9.1 fl (6.2-12.0); Platelet Count 209 K/mm3 (150-450); RBC Distribution Width CV 17.7 % (11.6-14.6); RBC Distribution Width SD 55.3 fl (35.1-43.9); Red Blood Count 3.59 M/mm3 (4.2-5.4)
[2024-01-05 07:59] LABS: ALB/GLOB Ratio 0.7 RATIO (0.9-2.4); AST(SGOT) 20 U/L (15-37); Alanine Aminotransfer ALT/SGPT 19 U/L (13-56); Albumin, Serum 1.8 g/dL (3.2-5.0); Alkaline Phosphatase 139 U/L (45-117); Anion Gap 8 (5-15); BUN 27 mg/dL (7-18); BUN/Creat Ratio 22.7 RATIO (10-20); Chloride 106 mmol/L (98-107); Creatinine, Serum 1.19 mg/dL (0.55-1.02); EST Glomerular Filtration Rate 47 mL/min (>60); Est Glom Filt Rate - Afr Amer 57 mL/min (>60); Estimated Creatinine Clearance 55.58 ml/min; Globulin 2.7 g/dL (2.2-4.2); Glucose 253 mg/dL (74-106); Potassium 3.4 mmol/L (3.5-5.1); Protein, Total 4.5 g/dL (6.4-8.2); Sodium Level 142 mmol/L (136-145)
--- NOTE | 2024-01-05 09:26 | PN.HOSP_ITS ---
Reason for Visit Reason for Visit: Diagnoses Hypomagnesemia (12/31/23) Hypokalemia (12/31/23) Pneumonia, unspecified organism (12/31/23) Pleural effusion, not elsewhere classified (12/31/23) Acute respiratory failure with hypoxia (12/31/23) Acute respiratory failure with hypercapnia (12/31/23) Respiratory failure, unspecified with hypoxia (12/31/23) Respiratory failure, unspecified with hypercapnia (12/31/23) Osteomyelitis of vertebra, site unspecified (12/31/23) Altered mental status, unspecified (12/31/23) Bacteremia (12/31/23) COVID-19 (12/31/23) Subjective Subjective Feels well. Objective Data Objective Data Vital Signs: Vital Signs Temp Pulse Resp BP Pulse Ox O2 Del Method O2 Flow Rate 36.7 C 62 16 93/71 98 Room Air 4 01/05/24 03:00 01/05/24 03:00 01/05/24 03:00 01/05/24 03:00 01/05/24 03:00 01/05/24 03:00 01/02/24 14:00 FiO2 40 01/01/24 16:45 Oxygen Flow Rate (L/min) 4 Oxygen Delivery Method Room Air Weight: 129.9 kg Body Mass Index (BMI) 46.0 Intake & Output: Intake and Output for Last 24 Hours 01/03/24 01/04/24 01/05/24 23:59 23:59 23:59 Intake Total 670 / 670 680 / 680 50 / 50 Output Total 200 / 200 1850 / 1850 500 / 500 Balance 470 / 470 -1170 / -1170 -450 / -450 Lab / Micro Data 01/05/24 07:25 01/05/24 07:25 Labs: Laboratory Results - last 24 hr 01/05/24 07:25: WBC 6.0, RBC 3.59 L, Hgb 9.1 L, Hct 30.5 L, MCV 85.0, MCH 25.3 L , MCHC 29.8 L, RDW Std Deviation 55.3 H, RDW Coeff of Josiah 17.7 H, Plt Count 209, MPV 9.1, Sodium 142, Potassium 3.4 L, Chloride 106, Carbon Dioxide 28.0, Anion Gap 8, BUN 27 H, Creatinine 1.19 H, Estim Creat Clear Calc 55.58, Est GFR (MDRD) Af Amer 57 L, Est GFR (MDRD) Non-Af 47 L, BUN/Creatinine Ratio 22.7 H, Glucose 253 H, Calcium 8.0 L, Total Bilirubin 0.20, AST 20, ALT 19, Alkaline Phosphatase 139 H, Total Protein 4.5 L, Albumin 1.8 L, Globulin 2.7, Albumin/Globulin Ratio 0.7 L Micro: Microbiology 01/02/24 08:55 Blood Culture (Wb) - Left Forearm Blood Culture - Preliminary No growth in 48 hours. 12/31/23 18:35 Urine, Catheterized Urine Culture - Final Pseudomonas aeruginosa Vancomycin Resist. E. faecium ESBL Escherichia coli 12/31/23 17:57 Blood Culture (Wb) - Other Blood Culture - Final Staphylococcus haemolyticus 12/31/23 18:35 Mucosa - Nose SARS-CoV-2, Influenza & RSV (PCR) - Final SARS-CoV-2 (COVID 19) Physical Exam Const alert and no apparent distress HEENT head/scalp atraumatic Extremity General Extremity: edema bilateral lower extremity (improved overall. ) Details: moderate Assessment & Plan Assessment/Plan (1) Pneumonia: QUALIFIERS: Laterality: right Lung location: lower lobe of lung Pneumonia type: due to unspecified organism Qualified Code(s): J18.9 - Pneumonia, unspecified organism (2) COVID-19: (3) Respiratory failure with hypoxia and hypercapnia: QUALIFIERS: Chronicity: acute Qualified Code(s): J96.01 - Acute respiratory failure with hypoxia; J96.02 - Acute respiratory failure with hypercapnia (4) Hypokalemia: (5) Hypomagnesemia: (6) Altered mental status: QUALIFIERS: Altered mental status type: unspecified Qualified Code(s): R41.82 - Altered mental status, unspecified (7) Chronic osteomyelitis of spine: PLAN: Plan Acute hypoxic respiratory failure * Resolved * likely multifactorial due to acute COVID-19 plus what appears to be acute heart failure exacerbation with pleural effusions. No baseline cardiac studies available in our system. I feel less likely this is pneumonia and the fact that the patient has been afebrile and has a normal white count and had been on antibiotics prior to arrival. * Currently on BiPAP but FiO2 has been able to be weaned down from 70 to 30%. Acute HFrEF * EF noted to be 35%. * Continue IV furosemide Acute COVID-19 pneumonitis * I feel much to the changes on that x-ray are more likely due to CHF though bacterial pneumonia certainly could be a possibility though less likely with normal white count absence of fever. * Started on dexamethasone and remdesivir. Abnormal urinalysis * Acute cystitis ruled out. Patient only 25-50 white blood cells and patient does have bacteria and yeast but do not feel that these are pathologic. Patient is already on antibiotics with bank and pip-tazo. Will discontinue the Diflucan. * UCx showed less than thousand Pseudomonas, less than the thousand VRE, less than 1000 ESBL E. coli. Bacteremia: * Blood culture on the showed staph coccus hemolyticus. Repeat blood culture on the pending. * TTE showed no vegetations * On vancomycin already for spinal osteomyelitis. Hypokalemia/hypomagnesemia * Replaced and improved but still low. Will continue with the replacement. Acute Metabolic Encephalopathy * resolved. * Secondary to respiratory failure. TSH, B12 and folate within normal limits. Avoid potentiating medications. Chronic Spinal Osteomyelitis * Patient was to be treated with vancomycin and ceftriaxone through the 01/12/2024. Currently on pip-tazo and vancomycin, will change back to CTX and vancomycin. . Will review the records to see when the actual stop date was and just accordingly. Chronic conditions * chronic atrial fibrillation: On rivaroxaban. VTE prophylaxis: Not indicated as patient is already on rivaroxaban. Disposition: planning on discharge to SNF pending insurance authorization. Charges/Coding Visit Charges Inpatient E&M: 58403 Subs Hosp L2
[2024-01-05 11:24] VITALS: BP 110/64; PULSE 90; RESP 16; TEMP 36.4; O2SAT 93
[2024-01-05] MEDS: Venlafaxine XR 75 MG Capsule PO (11:25)
[2024-01-05] MEDS: Zinc Sulfate 50 mg zinc (220 mg) ORAL capsule PO (11:26)
[2024-01-05] MEDS: Lactobacillis Acidophilus 1 CAP PO ×4 (11:26→21:31)
[2024-01-05] MEDS: Potassium Chloride Oral Tablet 20 MEQ PO (11:26)
[2024-01-05] MEDS: Multivitamins,Therapeutic Tablet 1 TABLET PO (11:26)
[2024-01-05] MEDS: Famotidine 20 MG Tablet PO ×2 (11:26→21:31)
[2024-01-05] MEDS: Cholecalciferol (Vit D3) 125 MCG CAPSULE (5,000 UNITS) PO (11:27)
[2024-01-05] MEDS: Rivaroxaban 20 MG Tablet PO (11:27)
[2024-01-05] MEDS: Ascorbic Acid 500 MG Tablet 1000 MG PO ×2 (11:27→18:22)
[2024-01-05] MEDS: dexAMETHasone 10 MG/ML Vial 6 MG IV ×2 (11:28→21:31)
[2024-01-05] MEDS: Nystatin Powder 15gm Bottle 1 APPLIC TOPICAL ×2 (11:28→21:36)
[2024-01-05] MEDS: Ceftriaxone 2 GM in 0.9% Normal Saline (50mL MB+) 50 ML IV ×2 (11:29→21:35)
[2024-01-05] MEDS: Furosemide 40 MG/4 ML Vial IV ×2 (11:29→18:23)
[2024-01-05] MEDS: Acetaminophen 325 MG Tablet 650 MG PO (11:34)
[2024-01-05] MEDS: Menthol/Lanolin/Calamine/Znox 113 GM Tube 1 APPLIC TOPICAL ×2 (11:35→21:34)
[2024-01-05] MEDS: Remdesivir 100 MG in 0.9% Normal Saline (250mL Bag) 230 ML 125 MG IV (14:17)
[2024-01-05 18:19] VITALS: BP 118/81; PULSE 87; RESP 16; TEMP 36.4; O2SAT 100
[2024-01-05 19:00] VITALS: PULSE 93
[2024-01-05 21:09] LABS: Vancomycin, Random Level 24.4 ug/mL (0.0-15.0)
[2024-01-05] MEDS: Senna Tablet 1 TABLET PO (21:31)
[2024-01-05] MEDS: MELATONIN 3 MG TABLET 6 MG PO (21:31)
--- NOTE | 2024-01-05 21:57 | PCM.RX.CS ---
Consult Antibiotic Management Pharmacy has been consulted to manage selected antibiotic: Vancomycin Type of Intervention Type of Consult: Follow-up Labs Labs: Sodium 142 mmol/L (136-145) 01/05/24 07:25 Potassium 3.4 mmol/L (3.5-5.1) L 01/05/24 07:25 Chloride 106 mmol/L (98-107) 01/05/24 07:25 Carbon Dioxide 28.0 mmol/L (21.0-32.0) 01/05/24 07:25 Anion Gap 8 (5-15) 01/05/24 07:25 BUN 27 mg/dL (7-18) H 01/05/24 07:25 Creatinine 1.19 mg/dL (0.55-1.02) H 01/05/24 07:25 Est GFR (MDRD) Af Amer 57 mL/min (>60) L 01/05/24 07:25 Est GFR (MDRD) Non-Af 47 mL/min (>60) L 01/05/24 07:25 BUN/Creatinine Ratio 22.7 RATIO (10-20) H 01/05/24 07:25 Glucose 253 mg/dL (74-106) H 01/05/24 07:25 Vancomycin Trough 43.5 ug/mL (5.0-15.0) H 01/02/24 08:55 Random Vancomycin 24.4 ug/mL (0.0-15.0) H 01/05/24 20:20 Microbiology Microbiology: Microbiology 01/02/24 08:55 Blood Culture (Wb) - Left Forearm Blood Culture - Preliminary No growth in 48 hours. 12/31/23 18:35 Urine, Catheterized Urine Culture - Final Pseudomonas aeruginosa Vancomycin Resist. E. faecium ESBL Escherichia coli 12/31/23 17:57 Blood Culture (Wb) - Other Blood Culture - Final Staphylococcus haemolyticus 12/31/23 18:35 Mucosa - Nose SARS-CoV-2, Influenza & RSV (PCR) - Final SARS-CoV-2 (COVID 19) Pharmacy Plan for Drug Dosing Pharmacy Plan for Drug Dosing: VANCOMYCIN LEVEL RECEIVED Current Vancomycin Dose: on hold Number of Doses Received: 3 Vancomycin Level: 24.4 mg/dl (random) Hours Since Last Dose: 95 Renal Function: SCr 1.19 mg/dl, CrCl 55 mL/min Renal Function Trend: worsened Vancomycin Plan/Comments: 95 hour trough continues to be supratherapeutic at 24.4 mg/dL (goal 15-20 mg/dL). Will continue holding doses and get a random level 01/06. Pending Level: 01/07/24 @ 0600 - random Pharmacy Service will continue to monitor and adjust dosing as required.
[2024-01-05 23:00] VITALS: PULSE 93
[2024-01-06] VITALS (9 sets, daily range): BP systolic 101–125; BP diastolic 64–85; PULSE 64–93; RESP 14–18; TEMP 36.3–36.7; O2SAT 93–97; BMI 46.0
[2024-01-06] MEDS: Acetaminophen 325 MG Tablet 650 MG PO ×2 (03:14→15:53)
[2024-01-06] MEDS: cycloBENZAPRine HCl 5 MG TABLET PO ×3 (05:55→20:10)
[2024-01-06 06:13] LABS: Anion Gap 7 (5-15); BUN 29 mg/dL (7-18); BUN/Creat Ratio 23.4 RATIO (10-20); Calcium,Total 8.2 mg/dL (8.5-10.1); Chloride 102 mmol/L (98-107); Creatinine, Serum 1.24 mg/dL (0.55-1.02); EST Glomerular Filtration Rate 45 mL/min (>60); Est Glom Filt Rate - Afr Amer 54 mL/min (>60); Estimated Creatinine Clearance 53.36 ml/min; Glucose 282 mg/dL (74-106); Potassium 3.1 mmol/L (3.5-5.1); Sodium Level 140 mmol/L (136-145)
[2024-01-06] MEDS: Ceftriaxone 2 GM in 0.9% Normal Saline (50mL MB+) 50 ML IV ×2 (08:24→20:08)
[2024-01-06] MEDS: Multivitamins,Therapeutic Tablet 1 TABLET PO (08:25)
[2024-01-06] MEDS: Ascorbic Acid 500 MG Tablet 1000 MG PO ×2 (08:25→16:00)
[2024-01-06] MEDS: Menthol/Lanolin/Calamine/Znox 113 GM Tube 1 APPLIC TOPICAL ×2 (08:25→20:11)
[2024-01-06] MEDS: Lactobacillis Acidophilus 1 CAP PO ×4 (08:25→20:09)
[2024-01-06] MEDS: dexAMETHasone 10 MG/ML Vial 6 MG IV (08:25)
[2024-01-06] MEDS: Furosemide 40 MG/4 ML Vial IV (08:26)
[2024-01-06] MEDS: Nystatin Powder 15gm Bottle 1 APPLIC TOPICAL ×2 (08:26→20:11)
[2024-01-06] MEDS: Famotidine 20 MG Tablet PO ×2 (08:27→20:12)
[2024-01-06] MEDS: Zinc Sulfate 50 mg zinc (220 mg) ORAL capsule PO (08:27)
[2024-01-06] MEDS: Cholecalciferol (Vit D3) 125 MCG CAPSULE (5,000 UNITS) PO (08:27)
[2024-01-06] MEDS: Rivaroxaban 20 MG Tablet PO (08:27)
[2024-01-06] MEDS: 0.9 % NaCl (Sterile) Posiflush 10 mL IV ×2 (08:28→20:09)
[2024-01-06] MEDS: Venlafaxine XR 75 MG Capsule PO (08:39)
[2024-01-06] MEDS: Potassium Chloride Oral Tablet 20 MEQ PO (08:40)
--- NOTE | 2024-01-06 08:51 | PN.HOSP_ITS ---
Reason for Visit Reason for Visit: Diagnoses Hypomagnesemia (12/31/23) Hypokalemia (12/31/23) Pneumonia, unspecified organism (12/31/23) Pleural effusion, not elsewhere classified (12/31/23) Acute respiratory failure with hypoxia (12/31/23) Acute respiratory failure with hypercapnia (12/31/23) Respiratory failure, unspecified with hypoxia (12/31/23) Respiratory failure, unspecified with hypercapnia (12/31/23) Osteomyelitis of vertebra, site unspecified (12/31/23) Altered mental status, unspecified (12/31/23) Bacteremia (12/31/23) COVID-19 (12/31/23) Subjective Subjective Feels well. Objective Data Objective Data Vital Signs: Vital Signs Temp Pulse Resp BP Pulse Ox O2 Del Method O2 Flow Rate 36.4 C L 87 16 116/75 97 Room Air 4 01/06/24 08:11 01/06/24 08:11 01/06/24 08:11 01/06/24 08:11 01/06/24 08:11 01/06/24 08:11 01/02/24 14:00 FiO2 40 01/01/24 16:45 Oxygen Flow Rate (L/min) 4 Oxygen Delivery Method Room Air Weight: 130 kg Body Mass Index (BMI) 46.0 Intake & Output: Intake and Output for Last 24 Hours 01/04/24 01/05/24 01/06/24 23:59 23:59 23:59 Intake Total 680 / 680 1470 / 1470 50 / 50 Output Total 1850 / 1850 1850 / 1850 Balance -1170 / -1170 -380 / -380 50 / 50 Lab / Micro Data 01/05/24 07:25 01/06/24 05:01 Labs: Laboratory Results - last 24 hr 01/05/24 20:20: Random Vancomycin 24.4 H 01/06/24 05:01: Sodium 140, Potassium 3.1 L, Chloride 102, Carbon Dioxide 31.0, Anion Gap 7, BUN 29 H, Creatinine 1.24 H, Estim Creat Clear Calc 53.36, Est GFR (MDRD) Af Amer 54 L, Est GFR (MDRD) Non-Af 45 L, BUN/Creatinine Ratio 23.4 H, G lucose 282 H, Calcium 8.2 L Micro: Microbiology 01/02/24 08:55 Blood Culture (Wb) - Left Forearm Blood Culture - Preliminary No growth in 48 hours. 12/31/23 18:35 Urine, Catheterized Urine Culture - Final Pseudomonas aeruginosa Vancomycin Resist. E. faecium ESBL Escherichia coli 12/31/23 17:57 Blood Culture (Wb) - Other Blood Culture - Final Staphylococcus haemolyticus 12/31/23 18:35 Mucosa - Nose SARS-CoV-2, Influenza & RSV (PCR) - Final SARS-CoV-2 (COVID 19) Physical Exam Const alert and no apparent distress HEENT head/scalp atraumatic and moist oral mucous membranes Resp normal respiratory effort and no retractions Extremity Extremity Narrative: Bilateral lower extremity edema improved from the with wrinkling of the skin. Assessment & Plan Assessment/Plan (1) Pneumonia: QUALIFIERS: Laterality: right Lung location: lower lobe of lung Pneumonia type: due to unspecified organism Qualified Code(s): J18.9 - Pneumonia, unspecified organism (2) COVID-19: (3) Respiratory failure with hypoxia and hypercapnia: QUALIFIERS: Chronicity: acute Qualified Code(s): J96.01 - Acute respiratory failure with hypoxia; J96.02 - Acute respiratory failure with hypercapnia (4) Hypokalemia: (5) Hypomagnesemia: (6) Altered mental status: QUALIFIERS: Altered mental status type: unspecified Qualified Code(s): R41.82 - Altered mental status, unspecified (7) Chronic osteomyelitis of spine: PLAN: Plan Acute hypoxic respiratory failure * Resolved * likely multifactorial due to acute COVID-19 plus what appears to be acute heart failure exacerbation with pleural effusions. No baseline cardiac studies available in our system. I feel less likely this is pneumonia and the fact that the patient has been afebrile and has a normal white count and had been on antibiotics prior to arrival. * Currently on BiPAP but FiO2 has been able to be weaned down from 70 to 30%. Acute HFrEF * EF noted to be 35%. * Creatinine has been trending upwards, will transition to oral from IV. * Start low-dose lisinopril and carvedilol, titrate upwards as pressure allows. Start empagliflozin. * Follow up with cardiology as outpt Acute COVID-19 pneumonitis * I feel much to the changes on that x-ray are more likely due to CHF though bacterial pneumonia certainly could be a possibility though less likely with normal white count absence of fever. * Started on dexamethasone (through 01/08) and remdesivir (through 01/05). * Day 0 was 12/30. Quarantine through 01/09 Abnormal urinalysis * Acute cystitis ruled out. Patient only 25-50 white blood cells and patient does have bacteria and yeast but do not feel that these are pathologic. Patient is already on antibiotics with bank and pip-tazo. Will discontinue the Diflucan. * UCx showed less than thousand Pseudomonas, less than the thousand VRE, less than 1000 ESBL E. coli. Bacteremia: * Blood culture on the showed staph coccus hemolyticus. Repeat blood culture on the negative. Likely contaminant. No additional work up at this time. * TTE showed no vegetations Hypokalemia/hypomagnesemia * replace Acute Metabolic Encephalopathy * POA resolved shortly after admission. * Secondary to respiratory failure. TSH, B12 and folate within normal limits. Avoid potentiating medications. Chronic Spinal Osteomyelitis * Diagnosed and initiated treatment at outside hospital. Patient to be treated with vancomycin and ceftriaxone through the 01/12/2024. Chronic conditions * chronic atrial fibrillation: On rivaroxaban. VTE prophylaxis: Not indicated as patient is already on rivaroxaban. Disposition: planning on discharge to SNF pending insurance authorization. Charges/Coding Visit Charges Inpatient E&M: 47556 Subs Hosp L2
[2024-01-06] MEDS: Potassium Chloride Oral Tablet 20 MEQ 60 MEQ PO (10:37)
[2024-01-06] MEDS: Lisinopril 2.5 MG Tablet PO (10:37)
[2024-01-06] MEDS: Carvedilol 3.125 MG TABLET PO (10:37)
[2024-01-06] MEDS: Remdesivir 100 MG in 0.9% Normal Saline (250mL Bag) 230 ML 125 MG IV (10:41)
[2024-01-06] MEDS: Furosemide 40 MG Tablet PO (17:26)
[2024-01-06] MEDS: MELATONIN 3 MG TABLET 6 MG PO (20:09)
[2024-01-07] MEDS: Acetaminophen 325 MG Tablet 650 MG PO (03:46)
[2024-01-07] MEDS: cycloBENZAPRine HCl 5 MG TABLET PO ×3 (03:46→22:01)
[2024-01-07 03:50] VITALS: BP 118/78; PULSE 62; RESP 18; TEMP 36.6; O2SAT 98
[2024-01-07 05:05] VITALS: BMI 46.1
[2024-01-07 06:55] LABS: Vancomycin, Random Level 21.4 ug/mL (0.0-15.0)
--- NOTE | 2024-01-07 07:04 | PCM.RX.CS ---
Consult Antibiotic Management Pharmacy has been consulted to manage selected antibiotic: Vancomycin Type of Intervention Type of Consult: Follow-up Suspected Infection Suspected Infection: Pneumonia Prior Doses of Antibiotics Prior Doses of Antibiotics Received/Current Regimen: Vancomycin 2000 mg Q12H last dose given 01/01/24 @ 2105 Labs Labs: Vancomycin Trough 43.5 ug/mL (5.0-15.0) H 01/02/24 08:55 Random Vancomycin 21.4 ug/mL (0.0-15.0) H 01/07/24 06:02 Microbiology Microbiology: Microbiology 01/02/24 08:55 Blood Culture (Wb) - Left Forearm Blood Culture - Preliminary No growth in 48 hours. 12/31/23 18:35 Urine, Catheterized Urine Culture - Final Pseudomonas aeruginosa Vancomycin Resist. E. faecium ESBL Escherichia coli 12/31/23 17:57 Blood Culture (Wb) - Other Blood Culture - Final Staphylococcus haemolyticus 12/31/23 18:35 Mucosa - Nose SARS-CoV-2, Influenza & RSV (PCR) - Final SARS-CoV-2 (COVID 19) Dosing Weight Weight used for dosin kg Estimated Creatinine Clearance Estimated Creatinine Clearance: ~53 Goal Trough Goal Trough: 15-20 mcg/mL Pharmacy Plan for Drug Dosing Pharmacy Plan for Drug Dosing: Continue to hold vancomycin, random level in 36 hours. Level has dropped 3 points in 34 hours. Pharmacy Service will continue to monitor and adjust dosing as required. Follow-Up Labs Follow-Up Labs: Trough: Vancomycin Date/Time Labs Ordered Labs to be done on [date and time ordered]: 01/08/24 @ 1800
[2024-01-07 09:10] VITALS: BP 118/81; PULSE 106; RESP 18; TEMP 36.7; O2SAT 99
[2024-01-07] MEDS: Zinc Sulfate 50 mg zinc (220 mg) ORAL capsule PO (09:11)
[2024-01-07] MEDS: Empagliflozin 10 MG Tablet PO (09:11)
[2024-01-07] MEDS: Lisinopril 2.5 MG Tablet PO (09:11)
[2024-01-07] MEDS: Potassium Chloride Oral Tablet 20 MEQ 40 MEQ PO (09:11)
[2024-01-07] MEDS: Ascorbic Acid 500 MG Tablet 1000 MG PO ×2 (09:11→16:53)
[2024-01-07] MEDS: Venlafaxine XR 75 MG Capsule PO (09:11)
[2024-01-07] MEDS: Famotidine 20 MG Tablet PO ×2 (09:11→21:59)
[2024-01-07] MEDS: Lactobacillis Acidophilus 1 CAP PO ×4 (09:12→21:55)
[2024-01-07] MEDS: Carvedilol 3.125 MG TABLET PO ×2 (09:12→21:58)
[2024-01-07] MEDS: Ceftriaxone 2 GM in 0.9% Normal Saline (50mL MB+) 50 ML IV ×2 (09:12→22:12)
[2024-01-07] MEDS: Cholecalciferol (Vit D3) 125 MCG CAPSULE (5,000 UNITS) PO (09:12)
[2024-01-07] MEDS: Rivaroxaban 20 MG Tablet PO (09:12)
[2024-01-07] MEDS: dexAMETHasone 10 MG/ML Vial 6 MG IV (09:12)
[2024-01-07] MEDS: 0.9 % NaCl (Sterile) Posiflush 10 mL IV (09:12)
[2024-01-07] MEDS: Multivitamins,Therapeutic Tablet 1 TABLET PO (09:12)
[2024-01-07] MEDS: Nystatin Powder 15gm Bottle 1 APPLIC TOPICAL ×2 (09:13→21:59)
[2024-01-07] MEDS: Furosemide 40 MG Tablet PO ×2 (09:15→16:53)
[2024-01-07] MEDS: Menthol/Lanolin/Calamine/Znox 113 GM Tube 1 APPLIC TOPICAL ×2 (09:15→21:56)
[2024-01-07 10:04] LABS: Anion Gap 7 (5-15); BUN 35 mg/dL (7-18); BUN/Creat Ratio 27.8 RATIO (10-20); Calcium,Total 8.1 mg/dL (8.5-10.1); Chloride 101 mmol/L (98-107); Creatinine, Serum 1.26 mg/dL (0.55-1.02); EST Glomerular Filtration Rate 44 mL/min (>60); Est Glom Filt Rate - Afr Amer 53 mL/min (>60); Estimated Creatinine Clearance 52.57 ml/min; Glucose 211 mg/dL (74-106); Potassium 3.5 mmol/L (3.5-5.1); Sodium Level 141 mmol/L (136-145)
--- NOTE | 2024-01-07 11:25 | CASEMGMT ---
Discharge Planning Updates sent to [facility] via [facility]. Bethany Colbert DC Planning Asst.
[2024-01-07 15:10] VITALS: BP 122/83; PULSE 99; RESP 18; TEMP 36.7; O2SAT 96
--- NOTE | 2024-01-07 16:25 | PN.HOSP_ITS ---
Reason for Visit Reason for Visit: Diagnoses Hypomagnesemia (12/31/23) Hypokalemia (12/31/23) Pneumonia, unspecified organism (12/31/23) Pleural effusion, not elsewhere classified (12/31/23) Acute respiratory failure with hypoxia (12/31/23) Acute respiratory failure with hypercapnia (12/31/23) Respiratory failure, unspecified with hypoxia (12/31/23) Respiratory failure, unspecified with hypercapnia (12/31/23) Osteomyelitis of vertebra, site unspecified (12/31/23) Altered mental status, unspecified (12/31/23) Bacteremia (12/31/23) COVID-19 (12/31/23) Objective Data Objective Data Vital Signs: Vital Signs Temp Pulse Resp BP Pulse Ox O2 Del Method O2 Flow Rate 98.0 F 99 18 122/83 H 96 Room Air 4 01/07/24 15:10 01/07/24 15:10 01/07/24 15:10 01/07/24 15:10 01/07/24 15:10 01/07/24 15:10 01/02/24 14:00 FiO2 40 01/01/24 16:45 Oxygen Flow Rate (L/min) 4 Oxygen Delivery Method Room Air Weight: 287 lb 0.67 oz Body Mass Index (BMI) 46.1 Intake & Output: Intake and Output for Last 24 Hours 01/05/24 01/06/24 01/07/24 23:59 23:59 23:59 Intake Total 1470 / 1470 738.33 / 738.33 50 / 50 Output Total 1850 / 1850 500 / 500 Balance -380 / -380 238.33 / 238.33 50 / 50 Lab / Micro Data 01/05/24 07:25 01/07/24 09:20 Labs: Laboratory Results - last 24 hr 01/07/24 06:02: Random Vancomycin 21.4 H 01/07/24 09:20: Sodium 141, Potassium 3.5, Chloride 101, Carbon Dioxide 34.0 H, Anion Gap 7, BUN 35 H, Creatinine 1.26 H, Estim Creat Clear Calc 52.57, Est GFR (MDRD) Af Amer 53 L, Est GFR (MDRD) Non-Af 44 L, BUN/Creatinine Ratio 27.8 H, G lucose 211 H, Calcium 8.1 L Micro: Microbiology 01/02/24 08:55 Blood Culture (Wb) - Left Forearm Blood Culture - Final No growth in 5 days. 01/06/24 06:50 Stool C. difficile GDH Antigen & Toxins - Final 01/06/24 06:50 Stool Clostridioides difficile (PCR) - Final 12/31/23 18:35 Urine, Catheterized Urine Culture - Final Pseudomonas aeruginosa Vancomycin Resist. E. faecium ESBL Escherichia coli 12/31/23 17:57 Blood Culture (Wb) - Other Blood Culture - Final Staphylococcus haemolyticus 12/31/23 18:35 Mucosa - Nose SARS-CoV-2, Influenza & RSV (PCR) - Final SARS-CoV-2 (COVID 19) Physical Exam Narrative Seen and examined. Patient is physically deconditioned. Has chronic lower extremity lymphedema, ongoing for more than 1 year. Not very ambulatory even on assistive device. No hypoxia Physical exam General: Alert, Oriented x3, Cooperative. BMI 46.1 kg/m?. Morbid obesity. HEENT: Atraumatic, PERRLA, EOMI, Normocephalic Oral: No Gingival or Mucosal Lesions/ Ulcerations Neck: Supple, No JVD, Negative Carotid Bruits Chest wall/Lungs: Air entry diminished in bilateral lung bases. No crepitation/rhonchi Cardiovascular: Regular rate, Regular Rhythm, Normal S1, Normal S2, No M/G/R Abdomen: Bowel Sounds Present, Soft, Non Tender, Non-Distended : No dysuria. No renal angle tenderness. No suprapubic tenderness. Extremities: Bilateral lower extremity edema, Capillary Refill Less than 3 Seconds Skin: Chronic lymphedema, hypertrophic hyperplasia of soft tissue lower extremities. Chronic scarring and scab on lower extremities. Musculoskeletal: No Tenderness to Palpation of Joints or Extremities Neurological: Cranial nerves II-XII grossly intact, DTR 2+/4. No acute focal neurological deficit. Psych/Mental Status: Anxious. Assessment & Plan Assessment/Plan (1) Pneumonia: QUALIFIERS: Pneumonia type: due to unspecified organism L aterality: right Lung location: lower lobe of lung Qualified Code(s): J18.9 - Pneumonia, unspecified organism (2) COVID-19: (3) Respiratory failure with hypoxia and hypercapnia: QUALIFIERS: Chronicity: acute Qualified Code(s): J96.01 - Acute respiratory failure with hypoxia; J96.02 - Acute respiratory failure with hypercapnia (4) Hypokalemia: (5) Hypomagnesemia: (6) Altered mental status: QUALIFIERS: Altered mental status type: unspecified Qualified Code(s): R41.82 - Altered mental status, unspecified (7) Chronic osteomyelitis of spine: PLAN: Plan Acute hypoxic respiratory failure * Resolved * likely multifactorial due to acute COVID-19 plus what appears to be acute heart failure exacerbation with pleural effusions. No baseline cardiac studies available in our system. I feel less likely this is pneumonia and the fact that the patient has been afebrile and has a normal white count and had been on antibiotics prior to arrival. 01/06: Currently on BiPAP but FiO2 has been able to be weaned down from 70 to 30%. Acute HFrEF * EF noted to be 35%. * Creatinine has been trending upwards, will transition to oral from IV. * Start low-dose lisinopril and carvedilol, titrate upwards as pressure allows. Start empagliflozin. * Follow up with cardiology as outpt 01/06: Patient has chronic lymphedema of lower extremities secondary to soft tissue hyperplasia. Continue above medications. Creatinine is stable 1.26. Acute COVID-19 pneumonitis * I feel much to the changes on that x-ray are more likely due to CHF though bacterial pneumonia certainly could be a possibility though less likely with normal white count absence of fever. * Started on dexamethasone (through 01/08) and remdesivir (through 01/05). * Day 0 was 12/30. Quarantine through 01/09 Abnormal urinalysis * Acute cystitis ruled out. Patient only 25-50 white blood cells and patient does have bacteria and yeast but do not feel that these are pathologic. Patient is already on antibiotics with bank and pip-tazo. Will discontinue the Diflucan. * UCx showed less than thousand Pseudomonas, less than the thousand VRE, less than 1000 ESBL E. coli. Bacteremia: * Blood culture on the showed staph coccus hemolyticus. Repeat blood culture on the negative. Likely contaminant. No additional work up at this time. * TTE showed no vegetations Hypokalemia/hypomagnesemia * replace Acute Metabolic Encephalopathy * POA resolved shortly after admission. * Secondary to respiratory failure. TSH, B12 and folate within normal limits. Avoid potentiating medications. Chronic Spinal Osteomyelitis * Diagnosed and initiated treatment at outside hospital. Patient to be treated with vancomycin and ceftriaxone through the 01/12/2024. Chronic conditions * chronic atrial fibrillation: On rivaroxaban. VTE prophylaxis: Not indicated as patient is already on rivaroxaban. Disposition: planning on discharge to SNF pending insurance authorization. Charges/Coding Visit Charges Inpatient E&M: 00664 Subs Hosp L2
[2024-01-07 20:00] VITALS: BP 123/82; PULSE 93; RESP 18; TEMP 36.6; O2SAT 97
[2024-01-07] MEDS: MELATONIN 3 MG TABLET 6 MG PO (22:01)
[2024-01-08 03:00] VITALS: BP 100/65; PULSE 91; RESP 16; TEMP 36.6; O2SAT 95
[2024-01-08 03:52] VITALS: BMI 46.6
[2024-01-08] MEDS: cycloBENZAPRine HCl 5 MG TABLET PO ×2 (05:08→13:55)
--- NOTE | 2024-01-08 05:27 | NURSING ---
Care RN called to patient room at 0420 due to patient had pulled PICC line out. On arrival, PICC line completely out. Gauze dressing covered by occlusive tegaderm dressing applied to site. PICC line 48 cm in length. PIV placed right AC with US guidance.
[2024-01-08 07:16] LABS: Anion Gap 5 (5-15); BUN 38 mg/dL (7-18); BUN/Creat Ratio 28.4 RATIO (10-20); Calcium,Total 8.2 mg/dL (8.5-10.1); Chloride 100 mmol/L (98-107); Creatinine, Serum 1.34 mg/dL (0.55-1.02); EST Glomerular Filtration Rate 41 mL/min (>60); Est Glom Filt Rate - Afr Amer 50 mL/min (>60); Estimated Creatinine Clearance 49.74 ml/min; Glucose 210 mg/dL (74-106); Potassium 3.9 mmol/L (3.5-5.1); Sodium Level 141 mmol/L (136-145)
[2024-01-08 09:13] VITALS: BP 141/86; PULSE 93; RESP 18; TEMP 36.6; O2SAT 97
[2024-01-08] MEDS: dexAMETHasone 10 MG/ML Vial 6 MG IV (09:17)
[2024-01-08] MEDS: Ceftriaxone 2 GM in 0.9% Normal Saline (50mL MB+) 50 ML IV (09:17)
[2024-01-08] MEDS: Multivitamins,Therapeutic Tablet 1 TABLET PO (09:17)
[2024-01-08] MEDS: Carvedilol 3.125 MG TABLET PO (09:17)
[2024-01-08] MEDS: Famotidine 20 MG Tablet PO (09:18)
[2024-01-08] MEDS: Ascorbic Acid 500 MG Tablet 1000 MG PO (09:18)
[2024-01-08] MEDS: Lisinopril 2.5 MG Tablet PO (09:18)
[2024-01-08] MEDS: Venlafaxine XR 75 MG Capsule PO (09:18)
[2024-01-08] MEDS: Lactobacillis Acidophilus 1 CAP PO ×2 (09:19→13:55)
[2024-01-08] MEDS: Zinc Sulfate 50 mg zinc (220 mg) ORAL capsule PO (09:19)
[2024-01-08] MEDS: Menthol/Lanolin/Calamine/Znox 113 GM Tube 1 APPLIC TOPICAL (09:20)
[2024-01-08] MEDS: Nystatin Powder 15gm Bottle 1 APPLIC TOPICAL (09:20)
[2024-01-08] MEDS: Rivaroxaban 20 MG Tablet PO (09:21)
[2024-01-08] MEDS: Cholecalciferol (Vit D3) 125 MCG CAPSULE (5,000 UNITS) PO (09:21)
[2024-01-08] MEDS: Empagliflozin 10 MG Tablet PO (09:21)
--- NOTE | 2024-01-08 09:58 | CASEMGMT ---
Discharge Planning [facility] has obtained auth to admit. Bethany Colbert DC Planning Asst.
--- NOTE | 2024-01-08 10:26 | TREXTCAR_ITS ---
Diet Diet Order/Speech Therapy: 01/04/24 14:20 Diet: Consistent Carb - Calorie Controlled Type of Dietary Supplement:: Glucerna Shake Diet Comments: 120 GS w/L and Jerome w/ B & D; distant supervision w/ meals How many daily calories?: 1800 calorie Routine Orders/Code Status Suppository Type: Dulcolax 10mg Suppository Frequency: Daily PRN Wound(s) right forearm: Wound Type: possible PIV infiltration from SWCC coccyx: Wound Type: Pressure Injury right nova: Wound Type: Abrasion Therapies Extremity Affected:: Bilateral Lower Physical Therapy: Eval and Treat Occupational Therapy: Eval and Treat Speech Therapy: Eval and Treat Problem/Diagnosis (1) Pneumonia: Status: Acute Code(s): J18.9 - Pneumonia, unspecified organism (2) COVID-19: Status: Acute Code(s): U07.1 - COVID-19 (3) Respiratory failure with hypoxia and hypercapnia: Status: Acute Code(s): J96.91 - Respiratory failure, unspecified with hypoxia; J96.92 - Respiratory failure, unspecified with hypercapnia (4) Hypokalemia: Status: Acute Code(s): E87.6 - Hypokalemia (5) Hypomagnesemia: Status: Acute Code(s): E83.42 - Hypomagnesemia (6) Altered mental status: Status: Acute Code(s): R41.82 - Altered mental status, unspecified (7) Chronic osteomyelitis of spine: Status: Acute Code(s): M46.20 - Osteomyelitis of vertebra, site unspecified Plan Acute hypoxic respiratory failure * Resolved * likely multifactorial due to acute COVID-19 plus what appears to be acute heart failure exacerbation with pleural effusions. No baseline cardiac studies available in our system. I feel less likely this is pneumonia and the fact that the patient has been afebrile and has a normal white count and had been on antibiotics prior to arrival. 01/06: Currently on BiPAP but FiO2 has been able to be weaned down from 70 to 30%. Acute HFrEF * EF noted to be 35%. * Creatinine has been trending upwards, will transition to oral from IV. * Start low-dose lisinopril and carvedilol, titrate upwards as pressure allows. Start empagliflozin. * Follow up with cardiology as outpt 01/06: Patient has chronic lymphedema of lower extremities secondary to soft tissue hyperplasia. Continue above medications. Creatinine is stable 1.26. Acute COVID-19 pneumonitis * I feel much to the changes on that x-ray are more likely due to CHF though bacterial pneumonia certainly could be a possibility though less likely with normal white count absence of fever. * Started on dexamethasone (through 01/08) and remdesivir (through 01/05). * Day 0 was 12/30. Quarantine through 01/09 Abnormal urinalysis * Acute cystitis ruled out. Patient only 25-50 white blood cells and patient does have bacteria and yeast but do not feel that these are pathologic. Patient is already on antibiotics with bank and pip-tazo. Will discontinue the Diflucan. * UCx showed less than thousand Pseudomonas, less than the thousand VRE, less than 1000 ESBL E. coli. Bacteremia: * Blood culture on the showed staph coccus hemolyticus. Repeat blood culture on the negative. Likely contaminant. No additional work up at this time. * TTE showed no vegetations Hypokalemia/hypomagnesemia * replace Acute Metabolic Encephalopathy * POA resolved shortly after admission. * Secondary to respiratory failure. TSH, B12 and folate within normal limits. Avoid potentiating medications. Chronic Spinal Osteomyelitis * Diagnosed and initiated treatment at outside hospital. Patient to be treated with vancomycin and ceftriaxone through the 01/12/2024. Chronic conditions * chronic atrial fibrillation: On rivaroxaban. VTE prophylaxis: Not indicated as patient is already on rivaroxaban. Disposition: planning on discharge to SNF pending insurance authorization. Allergies/Procedures Done in Hospital Allergies No Known Allergies Allergy (Verified 12/17/23 18:53) Type of Care/Length of Stay Estimated LOS: Convalescent Care Less Than 30 days Type of Care Needed: Skilled Rehab Potential: Good Prognosis: Good Additional Orders/Day of Discharge Day of Discharge: 01/08/24 Dietary and Speech Recommendations Dietitian Recommendations/Changes: Adjust to 1800 calorie control, consistent carb diet per [employer] consistency/texture. Will order 120ml glucerna with lunch as oral intake is decreased. Will order 1 packet of jerome BID with breakfast and dinner to promote wound healing. Will monitor weight, as available. Reviewed and approved by Michelle Schmitz RD, LD. Discharge Plan Admission Admit Date/Time: 12/31/23 20:49 Attending Provider: Seun Rollins Primary Care Provider: Dominic Lim Consulting Providers: Waqar Berman; Jessee Lucas; Ever Last Discharge Orders/Prescriptions Prescriptions: New ceftriaxone 2 gram recon soln 2 g IV Q12H 12 Days Rx Instructions: Stop date 01/15/24. Dx: spine osteomyelitis. Weekly bmp, cbc, vanc trough and esr. Routine picc care per protocol. Primary doctor is Dr. Megan Osorio. melatonin 3 mg Tablet 6 mg PO QHS Qty: 0 0RF lisinopril 2.5 mg Tablet 2.5 mg PO DAILY Qty: 0 0RF L.acidoph,saliva-B.bif-S.therm 175 mg Capsule 1 cap PO BID Qty: 0 0RF acetaminophen 325 mg Tablet 650 mg PO Q6H PRN PRN (Reason: Pain 1-5/10 Or Fever>100.7) Qty: 0 0RF carvedilol 3.125 mg Tablet 3.125 mg PO BID Qty: 0 0RF famotidine 20 mg Tablet 20 mg PO BID Qty: 0 0RF ascorbic acid (vitamin C) 500 mg Tablet 500 mg PO BIDCM Qty: 0 0RF Jardiance 10 mg Tablet 10 mg PO DAILY Qty: 0 0RF Continued cholecalciferol (vitamin D3) 25 mcg (1,000 unit) capsule 25 mcg PO DAILY cyclobenzaprine 5 mg tablet 5 mg PO Q8H insulin lispro [Humalog KwikPen Insulin] 100 unit/mL insulin pen See Protocol subcut .TIDCM&HS Protocol: 6. Sliding Scale Insulin Custom Condition: 71-150mg/dl range Dose/Route: 0 Condition: 151-200 Dose/Route: 2 Condition: 201-250 Dose/Route: 4 Condition: 251-300 Dose/Route: 6 Condition: 301-350 Dose/Route: 8 Condition: 351-400 Dose/Route: 10 Protocol Text: Custom Sliding Scale Rx Instructions: TID with meals and at HS multivitamin [Daily Multi-Vitamin] Tablet 1 tab PO DAILY nystatin 100,000 unit/gram powder 1 applic topical BID polyethylene glycol 3350 17 gram/dose powder 17 g PO BID potassium chloride 10 mEq capsule, extended release 20 meq PO DAILY Xarelto 20 mg tablet 20 mg PO DAILY sennosides 8.6 mg tablet 17.2 mg PO BID venlafaxine 75 mg capsule,extended release 24hr 75 mg PO DAILY vancomycin 2 gram recon soln 2 g IV Q36H Rx Instructions: stop date 01/15/24. Dx: spine osteomyelitis. Weekly bmp, cbc, vanc trough and esr. Routine picc care per protocol. Primary doctor is Dr. Megan Osorio. Discontinued ceftriaxone 2 gram recon soln 2 g IV BID Rx Instructions: end date 01/12/24 Referrals / Follow Up: Dominic Lim MD [Primary Care Provider] - Within 2 Weeks Raul Fong MD [Med Staff - Active Staff] - Within 1 Month (For heart failure) Miranda Chavarria PA [Med Staff - Adv Practice Prof] - Within 2 Weeks Disposition Disposition (needs filled in before D/C Order can be placed): [facility] Facility (1) Pneumonia Qualifiers: Laterality: right Lung location: lower lobe of lung Pneumonia type: due to unspecified organism Qualified Code(s): J18.9 - Pneumonia, unspecified organism (3) Respiratory failure with hypoxia and hypercapnia Qualifiers: Chronicity: acute Qualified Code(s): J96.01 - Acute respiratory failure with hypoxia; J96.02 - Acute respiratory failure with hypercapnia (6) Altered mental status Qualifiers: Altered mental status type: unspecified Qualified Code(s): R41.82 - Altered mental status, unspecified
--- NOTE | 2024-01-08 10:39 | DS.PCM_ITS ---
Providers Date of Admission: 12/31/23 Date of Discharge: 01/08/24 Primary Care Physician: Dr. Dominic Lim MD Consultations 01/02/24 14:16 Consult: Infectious Disease Routine Consulting Provider: Jessee Lucas Reason for Consult: bacteremia EMERGENT Consult: No MD Notified: Yes Date Notified: 01/02/24 Time Notified: 14:16 Method of Notification: Verbal Reason For Visit: RLL PNA, RIGHT PLEURAL EFFUSION COVID 19 & Diagnosis Discharge Diagnosis (1) Pneumonia: Status: Acute Code(s): J18.9 - Pneumonia, unspecified organism Qualifiers: Laterality: right Lung location: lower lobe of lung Pneumonia type: d ue to unspecified organism Qualified Code(s): J18.9 - Pneumonia, unspecified organism (2) COVID-19: Status: Acute Code(s): U07.1 - COVID-19 (3) Respiratory failure with hypoxia and hypercapnia: Status: Acute Code(s): J96.91 - Respiratory failure, unspecified with hypoxia; J96.92 - Respiratory failure, unspecified with hypercapnia Qualifiers: Chronicity: acute Qualified Code(s): J96.01 - Acute respiratory failure with hypoxia; J96.02 - Acute respiratory failure with hypercapnia (4) Hypokalemia: Status: Acute Code(s): E87.6 - Hypokalemia (5) Hypomagnesemia: Status: Acute Code(s): E83.42 - Hypomagnesemia (6) Altered mental status: Status: Acute Code(s): R41.82 - Altered mental status, unspecified Qualifiers: Altered mental status type: unspecified Qualified Code(s): R41.82 - Altered mental status, unspecified (7) Chronic osteomyelitis of spine: Status: Acute Code(s): M46.20 - Osteomyelitis of vertebra, site unspecified Plan 78-year-old female, assisted resident was admitted with confusion, shortness of breath and expiratory wheezing. Patient was found to be in acute hypoxic respiratory failure. She was admitted in peace Acute hypoxic respiratory failure * Resolved * likely multifactorial due to acute COVID-19 plus what appears to be acute heart failure exacerbation with pleural effusions. No baseline cardiac studies available in our system. I feel less likely this is pneumonia and the fact that the patient has been afebrile and has a normal white count and had been on antibiotics prior to arrival. 01/06: Currently on BiPAP but FiO2 has been able to be weaned down from 70 to 30%. 01/07: Seen and examined. Patient pulse ox 97% on room air. Comfortable breathing. No respiratory distress Acute HFrEF * EF noted to be 35%. * Creatinine has been trending upwards, will transition to oral from IV. * Start low-dose lisinopril and carvedilol, titrate upwards as pressure allows. Start empagliflozin. * Follow up with cardiology as outpt 01/06: Patient has chronic lymphedema of lower extremities secondary to soft tissue hyperplasia. Continue above medications. Creatinine is stable 1.26. 01/07: Lasix discontinued for now as the creatinine increased to 1.34. Follow- up the fluid status and kidney function is stabilized she will need at least for furosemide 40 mg daily. Acute COVID-19 pneumonitis * I feel much to the changes on that x-ray are more likely due to CHF though bacterial pneumonia certainly could be a possibility though less likely with normal white count absence of fever. * Started on dexamethasone (through 01/08) and remdesivir (through 01/05). * Day 0 was 12/30. Quarantine through 01/09 01/07: 1 more day of dexamethasone. Abnormal urinalysis, bacteria * Acute cystitis ruled out. Patient only 25-50 white blood cells and patient does have bacteria and yeast but do not feel that these are pathologic. Patient is already on antibiotics with bank and pip-tazo. Will discontinue the Diflucan. * UCx showed less than thousand Pseudomonas, less than the thousand VRE, less than 1000 ESBL E. coli. Bacteremia: * Blood culture on the showed staph coccus hemolyticus. Repeat blood culture on the negative. Likely contaminant. No additional work up at this time. * TTE showed no vegetations Hypokalemia/hypomagnesemia * replace Acute Metabolic Encephalopathy * POA resolved shortly after admission. * Secondary to respiratory failure. TSH, B12 and folate within normal limits. Avoid potentiating medications. Chronic Spinal Osteomyelitis * Diagnosed and initiated treatment at outside hospital. Patient to be treated with vancomycin and ceftriaxone through the 01/12/2024. Chronic conditions * chronic atrial fibrillation: On rivaroxaban. VTE prophylaxis: Not indicated as patient is already on rivaroxaban. Discharge medication reconciliation done. Discharge follow-up instructions completed. Discharge process discussed with the patient and all questions were answered to patient's satisfaction. Follow with PCP in 1 to 2 weeks Total time spent, exact 35 minutes on discharge meds reconciliation, examination, coordination of care with nurses and ancillary staff, review of imaging and blood test and discussion with the patient on follow-up instructions. Medications at Discharge Home Medications cholecalciferol (vitamin D3) 25 mcg (1,000 unit) capsule 25 mcg PO DAILY 12/31/23 cyclobenzaprine 5 mg tablet 5 mg PO Q8H 12/31/23 insulin lispro 100 unit/mL subcutaneous pen (Humalog KwikPen (U-100) Insulin) See Protocol subcut .TIDCM&HS 12/31/23 multivitamin (Daily Multi-Vitamin tablet) 1 tab PO DAILY 12/31/23 nystatin 100,000 unit/gram topical powder 1 applic topical BID 12/31/23 polyethylene glycol 3350 17 gram/dose oral powder 17 g PO BID 12/31/23 potassium chloride 10 mEq capsule,extended release 20 meq PO DAILY 12/31/23 rivaroxaban 20 mg tablet (Xarelto) 20 mg PO DAILY 12/31/23 sennosides 8.6 mg tablet 17.2 mg PO BID 12/31/23 venlafaxine 75 mg capsule,extended release 24 hr 75 mg PO DAILY 12/31/23 ceftriaxone 2 gram intravenous solution 2 g IV Q12H 12 days 01/04/24 vancomycin 2 gram intravenous solution 2 g IV Q36H #0 ea 01/04/24 L.acidophil,salivari-Bifido bifidum-Strep thermoph 175 mg capsule 1 cap PO BID #0 caps 01/08/24 acetaminophen 325 mg tablet 650 mg (2 x 325 mg) PO Q6H PRN PRN Pain 1-5/10 Or Fever>100.7 #0 tabs 01/08/24 ascorbic acid (vitamin C) 500 mg tablet 500 mg PO BIDCM #0 tabs 01/08/24 carvedilol 3.125 mg tablet 3.125 mg PO BID #0 tabs 01/08/24 dexamethasone 6 mg tablet 6 mg PO DAILY 1 day #1 TAB 01/08/24 empagliflozin 10 mg tablet (Jardiance) 10 mg PO DAILY #0 tabs 01/08/24 famotidine 20 mg tablet 20 mg PO BID #0 tabs 01/08/24 lisinopril 2.5 mg tablet 2.5 mg PO DAILY #0 tabs 01/08/24 melatonin 3 mg tablet 6 mg (2 x 3 mg) PO QHS #0 tabs 01/08/24 Physical Exam Narrative Seen and examined. Creatinine went up. Lasix held up. Respiratory is patient much improved. No hypoxia patient is physically deconditioned. Has chronic lower extremity lymphedema, ongoing for more than 1 year. Not very ambulatory even on assistive device. Physical exam General: Alert, Oriented x3, Cooperative. BMI 46.1 kg/m?. Morbid obesity. HEENT: Atraumatic, PERRLA, EOMI, Normocephalic Oral: No Gingival or Mucosal Lesions/ Ulcerations Neck: Supple, No JVD, Negative Carotid Bruits Chest wall/Lungs: Air entry diminished in bilateral lung bases. No crepitation/rhonchi Cardiovascular: Regular rate, Regular Rhythm, Normal S1, Normal S2, No M/G/R Abdomen: Bowel Sounds Present, Soft, Non Tender, Non-Distended : No dysuria. No renal angle tenderness. No suprapubic tenderness. Extremities: Bilateral lower extremity nonpitting, solid [place], Capillary Refill Less than 3 Seconds Skin: Chronic lymphedema, hypertrophic hyperplasia of soft tissue lower extremities. Chronic scarring and scab on lower extremities. Musculoskeletal: No Tenderness to Palpation of Joints or Extremities Neurological: Cranial nerves II-XII grossly intact, DTR 2+/4. No acute focal neurological deficit. Psych/Mental Status: Anxious. Weight / BMI Weight Weight: 290 lb 2.053 oz Body Mass Index (BMI) 46.6 ABG / Lab / Microbiology Data 01/05/24 07:25 01/08/24 06:49 Laboratory: Laboratory Results - last 24 hr 01/08/24 06:49: Sodium 141, Potassium 3.9, Chloride 100, Carbon Dioxide 36.0 H, Anion Gap 5, BUN 38 H, Creatinine 1.34 H, Estim Creat Clear Calc 49.74, Est GFR (MDRD) Af Amer 50 L, Est GFR (MDRD) Non-Af 41 L, BUN/Creatinine Ratio 28.4 H, G lucose 210 H, Calcium 8.2 L Microbiology: Microbiology 01/02/24 08:55 Blood Culture (Wb) - Left Forearm Blood Culture - Final No growth in 5 days. 01/06/24 06:50 Stool C. difficile GDH Antigen & Toxins - Final 01/06/24 06:50 Stool Clostridioides difficile (PCR) - Final 12/31/23 18:35 Urine, Catheterized Urine Culture - Final Pseudomonas aeruginosa Vancomycin Resist. E. faecium ESBL Escherichia coli 12/31/23 17:57 Blood Culture (Wb) - Other Blood Culture - Final Staphylococcus haemolyticus 12/31/23 18:35 Mucosa - Nose SARS-CoV-2, Influenza & RSV (PCR) - Final SARS-CoV-2 (COVID 19) Meaningful Use Info Meaningful Use Meaningful Use Diagnoses (Choose all that apply): CHF CHF POORNIMA/ARB ordered at discharge?: Yes Documented LVEF (%): 35 Ischemic Stroke Statin Dosing Therapy Reference: STATIN DOSE THERAPY REFERENCE: * Patients > 75 years receive moderate or high dose statin therapy. * Patients 75 years or YOUNGER should receive HIGH intensity statin dose unless contraindicated. You will be required to document reason for non-treatment if statin daily dose does not meet guidelines. HIGH DOSE STATIN THERAPY DAILY Atorvastatin > than or = to 40 mg Rosuvastatin > than or = to 20 mg Amlodipine + Atorvastatin > than or = to 2.5/40 mg Ezetimibe + Simvastatin 10/80 mg Simvastatin 80mg Discharge Plan Admission Admit Date/Time: 12/31/23 20:49 Attending Provider: Seun Rollins Primary Care Provider: Dominic Lim Consulting Providers: Waqar Berman; Jessee Lucas; Ever Last Instructions Additional Instructions / Restrictions: Consider diuretic Lasix 40 mg daily once kidney function is stabilized Discharge Orders/Prescriptions Prescriptions: New ceftriaxone 2 gram recon soln 2 g IV Q12H 12 Days Rx Instructions: Stop date 01/15/24. Dx: spine osteomyelitis. Weekly bmp, cbc, vanc trough and esr. Routine picc care per protocol. Primary doctor is Dr. Megan Osorio. melatonin 3 mg Tablet 6 mg PO QHS Qty: 0 0RF lisinopril 2.5 mg Tablet 2.5 mg PO DAILY Qty: 0 0RF L.acidoph,saliva-B.bif-S.therm 175 mg Capsule 1 cap PO BID Qty: 0 0RF acetaminophen 325 mg Tablet 650 mg PO Q6H PRN PRN (Reason: Pain 1-5/10 Or Fever>100.7) Qty: 0 0RF carvedilol 3.125 mg Tablet 3.125 mg PO BID Qty: 0 0RF famotidine 20 mg Tablet 20 mg PO BID Qty: 0 0RF ascorbic acid (vitamin C) 500 mg Tablet 500 mg PO BIDCM Qty: 0 0RF Jardiance 10 mg Tablet 10 mg PO DAILY Qty: 0 0RF dexamethasone 6 mg tablet 6 mg PO DAILY 1 Days Qty: 1 0RF Continued cholecalciferol (vitamin D3) 25 mcg (1,000 unit) capsule 25 mcg PO DAILY cyclobenzaprine 5 mg tablet 5 mg PO Q8H insulin lispro [Humalog KwikPen Insulin] 100 unit/mL insulin pen See Protocol subcut .TIDCM&HS Protocol: 6. Sliding Scale Insulin Custom Condition: 71-150mg/dl range Dose/Route: 0 Condition: 151-200 Dose/Route: 2 Condition: 201-250 Dose/Route: 4 Condition: 251-300 Dose/Route: 6 Condition: 301-350 Dose/Route: 8 Condition: 351-400 Dose/Route: 10 Protocol Text: Custom Sliding Scale Rx Instructions: TID with meals and at HS multivitamin [Daily Multi-Vitamin] Tablet 1 tab PO DAILY nystatin 100,000 unit/gram powder 1 applic topical BID polyethylene glycol 3350 17 gram/dose powder 17 g PO BID potassium chloride 10 mEq capsule, extended release 20 meq PO DAILY Xarelto 20 mg tablet 20 mg PO DAILY sennosides 8.6 mg tablet 17.2 mg PO BID venlafaxine 75 mg capsule,extended release 24hr 75 mg PO DAILY vancomycin 2 gram recon soln 2 g IV Q36H Rx Instructions: stop date 01/15/24. Dx: spine osteomyelitis. Weekly bmp, cbc, vanc trough and esr. Routine picc care per protocol. Primary doctor is Dr. Megan Osorio. Discontinued ceftriaxone 2 gram recon soln 2 g IV BID Rx Instructions: end date 01/12/24 Referrals / Follow Up: Raul Fong MD [Med Staff - Active Staff] - Within 1 Month (For heart failure) Dominic Lim MD [Primary Care Provider] - Within 2 Weeks Miranda Chavarria PA [Med Staff - Adv Practice Prof] - Within 2 Weeks Disposition Disposition (needs filled in before D/C Order can be placed): [facility] Charges/Coding Visit Charges Inpatient E&M: 29685 Disch Hosp >30min
--- NOTE | 2024-01-08 10:54 | CASEMGMT ---
Discharge Planning Discharge orders, signed med list, and transport time sent to [facility] via [facility]. Physicians will transport patient by cot at 3:30p. Nursing, SW, patient, and her son (Clinton) updated. Bethnay Colbert DC Planning Asst.
--- NOTE | 2024-01-08 12:05 | CASEMGMT ---
Patient was approved to return to [facility]. Plan: d/c back to [facility] under skilled level of care. Physicians will transport patient via cot. Deepali YOU
--- NOTE | 2024-01-08 13:03 | CHAPLAIN ---
Type of Pastoral Visit ___ Initial Visit ___ Follow-up Visit ___ On-call Visit ___ General Patient Visit ___ Spiritual Assessment ___ Family Conference ___ Bereavement ___ Rapid Response ___ Code Blue _x_ Other (describe below) Pastoral Care Referral From ___ Patient ___ Family ___ Nurse ___ Physician ___ Plush Cutter ___ Network Security Officer _x__ Other (describe below) Sacrament/Intervention ___ Active listening ___ Anointing ___ Yazdanism ___ Bereavement ___ Communion ___ Rachel exploration ___ ___ Life review ___ Prayer ___ Reconciliation ___ Sacrament of Sick ___ Supportive presence ___ Wedding _x__ Other (describe below) Pastoral Comments Physical Therapist asked for a visit to this patient who is in COVID isolation; phone call made into room but the voicemail states that the patient is not available; it is noted that pt is scheduled for discharge this afternoon to a SNF and a visit may not be possible due to the time limitations
[2024-01-08 14:00] VITALS: BP 122/75; PULSE 92; RESP 18; TEMP 36.6; O2SAT 96
--- NOTE | 2024-01-08 14:55 | RAD_ITS ---
STUDY: X-RAY CHEST REASON FOR EXAM: Female, 78 years old. picc line verification TECHNIQUE: Single AP portable view of the chest. COMPARISON: Comparison is made with prior study dated January 01, 2024. FINDINGS: A left-sided PICC line catheter has been placed with the tip in the right atrium. EKG electrodes are seen. Small bilateral pleural effusions with bibasilar atelectasis and mild vascular congestion. There is been improvement as compared to prior study. There is moderate cardiac enlargement. Normal mediastinum and amilcar. Normal visualized pulmonary arteries. There is atherosclerotic calcification of the aortic arch with tortuosity. There are diffuse degenerative changes of the visualized thoracic spine. Mild levoscoliosis. There is degenerative osteoarthritis of the bilateral shoulders. There is no demonstrated abnormality of the visualized soft tissue structures of the upper abdomen. RAD/CXR for Line Placement IMPRESSION: The tip of the left PICC line catheter is in the right atrium. Residual bilateral pleural effusions and bibasilar atelectasis superimposed mild degree of CHF although there has been improvement. Cardiomegaly. Electronically Signed: Jhonathan Wolff MD at 15:22 EDT ,
--- NOTE | 2024-01-08 15:00 | NURSING ---
This RN called and gave report to UZMA Christensen at [facility].
--- NOTE | 2024-01-08 15:35 | RAD_ITS ---
STUDY: X-RAY CHEST REASON FOR EXAM: Female, 78 years old. PICC line verification TECHNIQUE: AP portable COMPARISON: January 08, 2024 FINDINGS: Small right pleural effusion and mild right lower lobe consolidation . Heart is enlarged. Normal mediastinum and amilcar. Normal visualized pulmonary arteries. Normal visualized aortic arch and descending thoracic aorta. PICC line placement on the left with tip in distal superior vena cava approximately at the atrial caval junction Dorsal spine demonstrates degenerative change. Normal visualized ribs, clavicles, and shoulders. There is no demonstrated abnormality of the visualized soft tissue structures of the upper abdomen. RAD/Chest 1 View (Portable) IMPRESSION: PICC line placement on the right with tip in distal superior vena cava approximately at the level of the atrial caval junction Electronically Signed: Osvaldo Dalton MD at 16:06 EDT ,
== END 2024-01-08 17:44 | disposition skilled nursing facility (03) | DRG 177 ==
LOC: ED 21:50 → ICU 22:11 → PCU 01-02 17:37
PROVIDERS: Internal Medicine Infectious Disease; Admitting Provider Internal Medicine; Emergency Provider Emergency Medicine; PCP Family Medicine; Visit Provider Internal Medicine
DX: U07.1 COVID-19 (principal); J96.01 Acute respiratory failure with hypoxia; J12.82 Pneumonia due to coronavirus disease 2019; I50.21 Acute systolic (congestive) heart failure; G93.41 Metabolic encephalopathy; J96.02 Acute respiratory failure with hypercapnia; R78.81 Bacteremia; Z68.42 Body mass index [BMI] 45.0-49.9, adult; I48.20 Chronic atrial fibrillation, unspecified; M46.20 Osteomyelitis of vertebra, site unspecified; J90 Pleural effusion, not elsewhere classified; Z79.4 Long term (current) use of insulin; E66.01 Morbid (severe) obesity due to excess calories; E83.42 Hypomagnesemia; E87.6 Hypokalemia; I89.0 Lymphedema, not elsewhere classified; Z79.01 Long term (current) use of anticoagulants
CPT/HCPCS: 36415; 36569; 36592; 36600; 51702; 71045; 80048; 80053; 80202; 80307; 81001; 82077; 82140; 82607; 82746; 82803; 83605; 83735; 83880; 84100; 84443; 84484; 85025; 85027; 85610; 85730; 87040; 87077; 87086; 87088; 87184; 87186; 87493; 87631; 90662; 92526; 92610; 93005; 93306; 94002; 94003; 94762; 97162; 97166; 97530; 97535; 99285; J7030; J7040; J7050; Q9957; A4216; J0248; J0696; J1940; J3490

== ENCOUNTER → 2024-02-27 | Outpatient (REF) | payer MEDICARE, SELFPAY ==
[2024-02-27 09:23] LABS: Hematocrit 26.7 % (37-47); Hemoglobin 7.8 g/dL (12.0-15.0); Mean Corp Hgb Conc 29.2 g/dL (32-36); Mean Corpuscular Hgb 23.9 pg (27.0-32.0); Mean Corpuscular Volume 81.7 fL (81-99); Mean Platelet Vol. 9.7 fl (6.2-12.0); Platelet Count 196 K/mm3 (150-450); RBC Distribution Width CV 15.6 % (11.6-14.6); RBC Distribution Width SD 46.1 fl (35.1-43.9); Red Blood Count 3.27 M/mm3 (4.2-5.4); White Blood Count 6.3 K/mm3 (4.4-11.0)
[2024-02-27 09:56] LABS: Anion Gap 7 (5-15); BUN 24 mg/dL (7-18); BUN/Creat Ratio 21.2 RATIO (10-20); Calcium,Total 8.6 mg/dL (8.5-10.1); Chloride 104 mmol/L (98-107); Creatinine, Serum 1.13 mg/dL (0.55-1.02); EST Glomerular Filtration Rate 50 mL/min (>60); Est Glom Filt Rate - Afr Amer 60 mL/min (>60); Glucose 106 mg/dL (74-106); Potassium 3.9 mmol/L (3.5-5.1); Sodium Level 139 mmol/L (136-145)
== END ==
LOC: OLS.SW 04:00
PROVIDERS: PCP Family Medicine; Referring Provider Family Medicine; Visit Provider Family Medicine
DX: J44.9 Chronic obstructive pulmonary disease, unspecified (principal); E11.9 Type 2 diabetes mellitus without complications
CPT/HCPCS: 36415; 80048; 85027

== ENCOUNTER 2024-03-28 11:52 | Emergency (ER) | payer MEDICARE, SELFPAY ==
[2024-03-28 11:54] VITALS: BP 112/58; PULSE 104; RESP 19; TEMP 36.8; O2SAT 98; BMI 34.7
--- NOTE | 2024-03-28 12:14 | EDS_ITS ---
<Statement entered by Anthony Greer DO - 03/29/24 07:31> Patient was seen and examined with physician assistant media planner Rica All components of the history and physical confirmed and agreed. History of present illness and physical exam: Patient is a 78-year-old female past medical history of anxiety, anemia, CHF, A- fib on Xarelto, COPD, chronic kidney disease, ESBL who presents to the emergency department with a chief complaint of abnormal labs. Patient states that she had blood work obtained at the nursing facility earlier in the morning and they noted that her hemoglobin was low at 6.9 therefore they sent her here for further evaluation management. Patient states that she does have a history of a GI bleed. Patient states that her stools been normal in color and denies any blood denies any black tarry stools and states that she uses a bedpan and believes that if this was abnormal someone would have caught it. Review of systems: Agree with above Physical exam agree with above MDM Patient is a 78-year-old female who presents to the emergency department chief complaint of anemia found on routine blood work earlier in the day. Patient will have a workup performed here on the differential diagnose includes Melamin to anemia, GI bleed. Once workup is obtained reviewed she will be reevaluated. Patient H&H was reviewed and her hemoglobin was normal at 7.7, she was Hemoccult positive on exam. Given that she is Hemoccult positive on Xarelto with abnormal blood work obtained earlier today we will add on routine blood work here. This will be reviewed. Patient's AST and ALT were normal at 14 and 13 respectively, troponin normal at 14, lipase normal at 18. She was O+. Patient's EKG reviewed showed atrial fibrillation for which she has a history of with a controlled rate of 79 bpm this independently interpreted by myself. We did reach out to Dr. Munoz given her history of GI bleed while on Xarelto. He is recommending that as long as her hemoglobin is not below 7 and 4 hours on recheck of H&H he will follow-up with her in the outpatient setting. Patient be given dose Protonix here in the emergency department. On repeat H&H patient's hemoglobin was noted to be 7.1. At this point time patient will be discharged back to the facility in the stable condition with instructions to return with worsening symptoms or other concerns. Patient would like to go home at this point time she states that she has a event at the facility tomorrow morning for Iliana that she wants to go to. Patient is agreeable this plan all question concerns answered she was discharged home in stable condition. Final impression: Anemia Atrial fibrillation, history of this on Xarelto Disposition: Patient will be discharged home in stable condition Supervising attending attestation: Anthony VINCENT History of Present Illness Chief Complaint: Abn Labs Narrative Narrative: Patient presenting today due to abnormal labs that were drawn this morning at her halfway. Her hemoglobin was 6.9, she does have a history of chronic anemia and denies history of a GI bleed. She is unsure if she has had any black or tarry/bloody stools because she has bowel movements in a bedpan and does not check. She has a PMH of atrial fibrillation on Xarelto, CKD, CHF, COPD, HLD. She has no acute complaints. She reports that she is feeling well. [facility] Medical History (Updated 03/28/24 @ 17:12 by FIDELIA Contreras) Anemia Anxiety Depression CHF (congestive heart failure) A-fib COPD (chronic obstructive pulmonary disease) Kidney disease Diabetes Hyperlipidemia History of ESBL E. coli infection History of infection with vancomycin resistant Enterococcus (VRE) Altered mental status Home Medications ?Medication ?Instructions ?Recorded ?Last Taken ?Type cholecalciferol (vitamin D3) 25 25 mcg PO DAILY 12/31/23 Unknown History mcg (1,000 unit) capsule cyclobenzaprine 5 mg tablet 5 mg PO Q8H 12/31/23 Unknown History insulin lispro 100 unit/mL See Protocol subcut .TIDCM&HS 12/31/23 Unknown History subcutaneous pen (Humalog KwikPen (U-100) Insulin) multivitamin (Daily Multi-Vitamin 1 tab PO DAILY 12/31/23 Unknown History tablet) nystatin 100,000 unit/gram topical 1 applic topical BID 12/31/23 Unknown History powder polyethylene glycol 3350 17 17 g PO BID 12/31/23 Unknown History gram/dose oral powder potassium chloride 10 mEq 20 meq PO DAILY 12/31/23 Unknown History capsule,extended release rivaroxaban 20 mg tablet (Xarelto) 20 mg PO DAILY 12/31/23 Unknown History sennosides 8.6 mg tablet 17.2 mg PO BID 12/31/23 Unknown History venlafaxine 75 mg capsule,extended 150 mg PO DAILY 12/31/23 Unknown History release 24 hr ceftriaxone 2 gram intravenous 2 g IV Q12H 12 days 01/04/24 Unknown Rx solution vancomycin 2 gram intravenous 2 g IV Q36H #0 ea 01/04/24 Unknown Rx solution L.acidophil,salivari-Bifido 1 cap PO BID #0 caps 01/08/24 Unknown Rx bifidum-Strep thermoph 175 mg capsule acetaminophen 325 mg tablet 650 mg (2 x 325 mg) PO Q6H PRN PRN 01/08/24 Unknown Rx Pain 1-5/10 Or Fever>100.7 #0 tabs ascorbic acid (vitamin C) 500 mg 500 mg PO BIDCM #0 tabs 01/08/24 Unknown Rx tablet carvedilol 3.125 mg tablet 3.125 mg PO BID #0 tabs 01/08/24 Unknown Rx famotidine 20 mg tablet 20 mg PO BID #0 tabs 01/08/24 Unknown Rx lisinopril 2.5 mg tablet 2.5 mg PO DAILY #0 tabs 01/08/24 Unknown Rx melatonin 3 mg tablet 6 mg (2 x 3 mg) PO QHS #0 tabs 01/08/24 Unknown Rx buspirone 5 mg tablet 5 mg PO BID 03/28/24 Unknown History cephalexin 500 mg capsule 500 mg PO TID 03/28/24 Unknown History dapagliflozin propanediol 5 mg 5 mg PO DAILY 03/28/24 Unknown History tablet (Farxiga) Allergy/AdvReac Type Severity Reaction Status Date / Time No Known Allergies Allergy Verified 03/28/24 11:53 Social History Smoking Status: Never smoker ROS ROS ED Constitutional Constitutional ED: Denies chills or fever(s) Cardiovascular Cardiovascular: Denies chest pain Respiratory/Chest Respiratory/Chest: Denies dyspnea Gastrointestinal Gastrointestinal: Denies abdominal pain, nausea or vomiting Musculoskeletal Musculoskeletal: Denies arthralgias or myalgias Integumentary Denies rash Neurologic Neurologic: Denies weakness EXAM Physical Exam Const Vital Signs: 03/28/24 11:54 03/28/24 11:57 03/28/24 13:47 Temperature 98.3 F Temperature Source Oral Pulse Rate 104 H 91 Respiratory Rate 19 H 18 Respiratory Effort Normal Respiratory Pattern Normal Blood Pressure 112/58 L 94/61 Blood Pressure Mean 76 72 Pulse Ox 98 97 Oxygen Delivery Method Room Air Room Air 03/28/24 15:00 Temperature Temperature Source Pulse Rate 100 Respiratory Rate 16 Respiratory Effort Respiratory Pattern Blood Pressure 103/67 Blood Pressure Mean 79 Pulse Ox Oxygen Delivery Method Positive well nourished, well developed and no apparent distress General Appearance ED: well developed HEENT Reports normocephalic and head/scalp atraumatic Mouth ED: Yes moist mucous membranes normal Eyes PERRL and EOMs intact bilaterally Neck full ROM and supple Chest Wall inspection of chest normal Resp normal respiratory effort and clear to auscultation bilaterally Cardio regular rate and regular rhythm GI soft to palpation, non-tender, non-distended and no masses GI Narrative: rectal: Normal sphincter tone, minimal brown stool noted Back/Spine normal ROM and normal to inspection Extremity normal to inspection and full ROM Neuro oriented x3, CN's II-XII intact bilaterally, moves all extremities, no focal motor deficits and no sensory deficits noted Sensorium / Orientation: awake and alert Psych mental status grossly normal and thought process normal Skin no rashes or lesions noted and no wounds MDM MDM MDM Narrative Medical decision making narrative: Patient presenting today due to abnormal labs. Patient otherwise has no acute complaints. She reports that she is feeling well. She had a hemoglobin of 6.9 early this morning, that was rechecked here and was 7.7. She does have a history of anemia. Her liver panel, troponin, lipase, and BMP are largely unremarkable. Her stool occult is positive. She denies any history of a GI bleed. She was given IV fluids because she does appear dry. I did speak with Dr. Munoz, he recommended that as long as her hemoglobin is not below 7 in 4 hours she can follow-up as an outpatient for further workup. She was given a dose of Protonix here. Hemoglobin on repeat exam is 7.1. On reexamination she is doing well and is stable. She is comfortable with the plan and comfortable with outpatient follow-up. She is able to have regular lab draws at the halfway. Return instructions discussed with her. She will be discharged home in stable condition. Lab Data Attestation: I reviewed the patient's lab results. Labs: Laboratory Results - last 24 hr 03/28/24 03/28/24 03/28/24 06:50 12:15 16:20 Hgb 7.7 L 7.1 L Hct 25.0 L 23.3 L Total Bilirubin 0.20 Direct Bilirubin 0.12 AST 14 L ALT 13 Alkaline Phosphatase 126 H Troponin I High Sens 14 Total Protein 5.9 L Albumin 2.4 L Globulin 3.5 Lipase 18 Blood Type O POSITIVE Antibody Screen NEGATIVE EKG Initial EKG: Comments: 79 bpm, atrial fibrillation, no ST elevation, interpreted by attending ED physician Discharge Plan Triage Chief Complaint: Abn Labs ED Midlevel Provider: Sujatha Hebert ED Provider: Anthony Greer Dx/Rx/DC Orders Clinical Impression: GI bleeding, Chronic anemia Instructions: GI Bleeding Causes and Tests Prescriptions: No Action buspirone 5 mg tablet 5 mg PO BID cephalexin 500 mg capsule 500 mg PO TID dapagliflozin propanediol [Farxiga] 5 mg tablet 5 mg PO DAILY cholecalciferol (vitamin D3) 25 mcg (1,000 unit) capsule 25 mcg PO DAILY cyclobenzaprine 5 mg tablet 5 mg PO Q8H insulin lispro [Humalog KwikPen Insulin] 100 unit/mL insulin pen See Protocol subcut .TIDCM&HS Protocol: 6. Sliding Scale Insulin Custom Condition: 71-150mg/dl range Dose/Route: 0 Condition: 151-200 Dose/Route: 2 Condition: 201-250 Dose/Route: 4 Condition: 251-300 Dose/Route: 6 Condition: 301-350 Dose/Route: 8 Condition: 351-400 Dose/Route: 10 Protocol Text: Custom Sliding Scale Rx Instructions: TID with meals and at HS multivitamin [Daily Multi-Vitamin] Tablet 1 tab PO DAILY nystatin 100,000 unit/gram powder 1 applic topical BID polyethylene glycol 3350 17 gram/dose powder 17 g PO BID potassium chloride 10 mEq capsule, extended release 20 meq PO DAILY Xarelto 20 mg tablet 20 mg PO DAILY sennosides 8.6 mg tablet 17.2 mg PO BID venlafaxine 75 mg capsule,extended release 24hr 150 mg PO DAILY ceftriaxone 2 gram recon soln 2 g IV Q12H 12 Days Rx Instructions: Stop date 01/15/24. Dx: spine osteomyelitis. Weekly bmp, cbc, vanc trough and esr. Routine picc care per protocol. Primary doctor is Dr. Megan Osorio. vancomycin 2 gram recon soln 2 g IV Q36H Rx Instructions: stop date 01/15/24. Dx: spine osteomyelitis. Weekly bmp, cbc, vanc trough and esr. Routine picc care per protocol. Primary doctor is Dr. Megan Osorio. melatonin 3 mg Tablet 6 mg PO QHS Qty: 0 0RF lisinopril 2.5 mg Tablet 2.5 mg PO DAILY Qty: 0 0RF L.acidoph,saliva-B.bif-S.therm 175 mg Capsule 1 cap PO BID Qty: 0 0RF acetaminophen 325 mg Tablet 650 mg PO Q6H PRN PRN (Reason: Pain 1-5/10 Or Fever>100.7) Qty: 0 0RF carvedilol 3.125 mg Tablet 3.125 mg PO BID Qty: 0 0RF famotidine 20 mg Tablet 20 mg PO BID Qty: 0 0RF ascorbic acid (vitamin C) 500 mg Tablet 500 mg PO BIDCM Qty: 0 0RF Primary Care Provider: April Pacheco Referrals: Jacinto Munoz DO [Med Staff - Active Staff] - 5-7 Days Dominic Lim [[facility]] - Activity Restrictions/Additional Instructions: Follow-up with Dr. Munoz. Return if your hemoglobin drops below 7. Print Language: Mozambican Disposition Disposition: Home, Self Care
[2024-03-28 12:28] LABS: Hemoglobin 7.7 g/dL (12.0-15.0)
[2024-03-28] MEDS: 0.9% Normal Saline (500mL Bag) 500 ML 999 ML IV (12:45)
--- NOTE | 2024-03-28 12:52 | EKG12_ITS ---
Test Reason : O Blood Pressure : */* mmHG Vent. Rate : 79 BPM Atrial Rate : * BPM P-R Int : * ms QRS Dur : 104 ms QT Int : 370 ms P-R-T Axes : * -32 208 degrees QTcB Int : 424 ms Atrial fibrillation Left axis deviation Low voltage QRS Cannot rule out Anterior infarct (cited on or before 31-Dec-2023) Abnormal ECG Confirmed by FAINA REHMAN, BARBARA ([id number]), editor managing director GIANNA DILLON ([id number]) on 03/31/2024 6:36:20 AM Referred By: Confirmed By: BARBARA EISENBERG MD
[2024-03-28] MEDS: Pantoprazole Sodium 40 MG in 0.9% Normal Saline (100mL MB+) 100 ML 330 MG IV (13:43)
[2024-03-28 13:47] VITALS: BP 94/61; PULSE 91; RESP 18; O2SAT 97
[2024-03-28 14:08] LABS: AST(SGOT) 14 U/L (15-37); Alanine Aminotransfer ALT/SGPT 13 U/L (13-56); Albumin, Serum 2.4 g/dL (3.2-5.0); Alkaline Phosphatase 126 U/L (45-117); Bilirubin, Direct 0.12 mg/dL (0.00-0.30); Globulin 3.5 g/dL (2.2-4.2); Lipase 18 U/L (13-75); Protein, Total 5.9 g/dL (6.4-8.2); Troponin-I HS 14 pg/mL (3.0-54.0)
[2024-03-28 15:00] VITALS: BP 103/67; PULSE 100; RESP 16
[2024-03-28 16:32] LABS: Hematocrit 23.3 % (37-47); Hemoglobin 7.1 g/dL (12.0-15.0)
[2024-03-28 17:00] VITALS: BP 99/61; PULSE 90; RESP 18; O2SAT 97
[2024-03-28 17:47] VITALS: BP 99/61; PULSE 90; RESP 18; TEMP 36.8; O2SAT 97
--- NOTE | 2024-03-28 19:54 | ED.RN ---
attempted to call report to nurse on [address] at [facility]. another staff member picked up and transferred to unit still with no answer.
== END 2024-03-28 21:38 | disposition home or self-care (01) ==
PROVIDERS: Physician Assistant; Emergency Provider Emergency Medicine; PCP Internal Medicine; Visit Provider Emergency Medicine
DX: K92.2 Gastrointestinal hemorrhage, unspecified (principal); J44.9 Chronic obstructive pulmonary disease, unspecified; I48.91 Unspecified atrial fibrillation; E11.22 Type 2 diabetes mellitus with diabetic chronic kidney disease; R19.5 Other fecal abnormalities; E78.5 Hyperlipidemia, unspecified; D64.9 Anemia, unspecified; Z79.01 Long term (current) use of anticoagulants
CPT/HCPCS: 80076; 82274; 83690; 84484; 85014; 85018; 86850; 86900; 86901; 93005; 96360; 99285; A4216

== ENCOUNTER → 2024-03-28 | Outpatient (REF) | payer MEDICARE, SELFPAY ==
[2024-03-28 08:08] LABS: Hematocrit 23.3 % (37-47); Hemoglobin 6.9 g/dL (12.0-15.0); Mean Corp Hgb Conc 29.6 g/dL (32-36); Mean Corpuscular Hgb 23.2 pg (27.0-32.0); Mean Corpuscular Volume 78.5 fL (81-99); Mean Platelet Vol. 9.7 fl (6.2-12.0); Platelet Count 172 K/mm3 (150-450); RBC Distribution Width CV 15.9 % (11.6-14.6); RBC Distribution Width SD 45.1 fl (35.1-43.9); Red Blood Count 2.97 M/mm3 (4.2-5.4); White Blood Count 5.4 K/mm3 (4.4-11.0)
[2024-03-28 08:33] LABS: Anion Gap 5 (5-15); BUN 22 mg/dL (7-18); BUN/Creat Ratio 20.2 RATIO (10-20); Calcium,Total 8.8 mg/dL (8.5-10.1); Chloride 104 mmol/L (98-107); Cholesterol 140 mg/dL (200); Creatinine, Serum 1.09 mg/dL (0.55-1.02); EST Glomerular Filtration Rate 52 mL/min (>60); Est Glom Filt Rate - Afr Amer 63 mL/min (>60); Glucose 112 mg/dL (74-106); High Density Lipoprotein 58 mg/dL; Potassium 3.9 mmol/L (3.5-5.1); Sodium Level 136 mmol/L (136-145); Triglycerides 98 mg/dL; Very Low Density Lipoprotein 20 mg/dL (5-40)
[2024-03-28 08:40] LABS: Hemoglobin A1c 5.6 % (3.8-5.6)
== END ==
LOC: OLS.SW 04:00
PROVIDERS: PCP Family Medicine; Referring Provider Family Medicine; Visit Provider Family Medicine
DX: E11.9 Type 2 diabetes mellitus without complications (principal)
CPT/HCPCS: 36415; 80048; 80061; 83036; 85027

== ENCOUNTER → 2024-04-03 | Outpatient (REF) | payer MEDICARE, SELFPAY ==
[2024-04-03 08:12] LABS: Hematocrit 24.8 % (37-47); Hemoglobin 7.2 g/dL (12.0-15.0); Mean Corpuscular Hgb 22.9 pg (27.0-32.0); Mean Corpuscular Volume 78.7 fL (81-99); Mean Platelet Vol. 9.8 fl (6.2-12.0); Platelet Count 155 K/mm3 (150-450); RBC Distribution Width CV 15.7 % (11.6-14.6); RBC Distribution Width SD 44.7 fl (35.1-43.9); Red Blood Count 3.15 M/mm3 (4.2-5.4); White Blood Count 5.9 K/mm3 (4.4-11.0)
== END ==
LOC: OLS.SW 05:00
PROVIDERS: PCP Internal Medicine; Visit Provider Internal Medicine
DX: D64.9 Anemia, unspecified (principal)
CPT/HCPCS: 36415; 85027

== ENCOUNTER → 2024-04-07 | Outpatient (REF) | payer MEDICARE, SELFPAY ==
[2024-04-07 09:26] LABS: Hematocrit 25.6 % (37-47); Hemoglobin 7.5 g/dL (12.0-15.0); Mean Corp Hgb Conc 29.3 g/dL (32-36); Mean Corpuscular Hgb 22.9 pg (27.0-32.0); Mean Platelet Vol. 10.1 fl (6.2-12.0); Platelet Count 203 K/mm3 (150-450); RBC Distribution Width CV 15.7 % (11.6-14.6); RBC Distribution Width SD 44.5 fl (35.1-43.9); Red Blood Count 3.28 M/mm3 (4.2-5.4); White Blood Count 6.7 K/mm3 (4.4-11.0)
== END ==
LOC: OLS.SW 05:00
PROVIDERS: PCP Internal Medicine; Visit Provider Internal Medicine
DX: D64.9 Anemia, unspecified (principal)
CPT/HCPCS: 36415; 85027; 86850; 86900; 86901

== ENCOUNTER → 2024-04-14 05:00 | Outpatient (REF) | payer MEDICARE, SELFPAY ==
[2024-04-14 09:47] LABS: Ferritin 162 ng/mL (8-252); Iron 17 ug/dL (50-170); Iron Binding Capacity,Total 286 ug/dL (250-450)
[2024-04-14 14:14] LABS: Hematocrit 26.3 % (37-47); Hemoglobin 7.7 g/dL (12.0-15.0); Mean Corp Hgb Conc 29.3 g/dL (32-36); Mean Corpuscular Hgb 22.8 pg (27.0-32.0); Platelet Count 225 K/mm3 (150-450); RBC Distribution Width SD 45.4 fl (35.1-43.9); Red Blood Count 3.37 M/mm3 (4.2-5.4); White Blood Count 7.3 K/mm3 (4.4-11.0)
== END ==
LOC: OLS.SW 05:00
PROVIDERS: PCP Internal Medicine; Visit Provider Internal Medicine
DX: D64.9 Anemia, unspecified (principal)
CPT/HCPCS: 36415; 82728; 83540; 83550; 85027

== ENCOUNTER → 2024-05-12 | Outpatient (REF) | payer MEDICARE, SELFPAY ==
[2024-05-12 10:11] LABS: Hematocrit 31.4 % (37-47); Hemoglobin 9.2 g/dL (12.0-15.0); Mean Corp Hgb Conc 29.3 g/dL (32-36); Mean Corpuscular Hgb 23.8 pg (27.0-32.0); Mean Corpuscular Volume 81.3 fL (81-99); Mean Platelet Vol. 9.5 fl (6.2-12.0); POSITIVE MORPHOLOGY YES; Platelet Count 164 K/mm3 (150-450); RBC Distribution Width CV 20.8 % (11.6-14.6); RBC Distribution Width SD 60.6 fl (35.1-43.9); Red Blood Count 3.86 M/mm3 (4.2-5.4); White Blood Count 5.6 K/mm3 (4.4-11.0)
[2024-05-12 10:14] LABS: Scan Indicated on CBC? Y/N YES- FLAGS NOTED
[2024-05-12 10:48] LABS: ALB/GLOB Ratio 0.7 RATIO (0.9-2.4); AST(SGOT) 20 U/L (15-37); Alanine Aminotransfer ALT/SGPT 14 U/L (13-56); Albumin, Serum 2.6 g/dL (3.2-5.0); Alkaline Phosphatase 109 U/L (45-117); Anion Gap 7 (5-15); BUN 30 mg/dL (7-18); BUN/Creat Ratio 26.5 RATIO (10-20); Chloride 103 mmol/L (98-107); Creatinine, Serum 1.13 mg/dL (0.55-1.02); EST Glomerular Filtration Rate 50 mL/min (>60); Est Glom Filt Rate - Afr Amer 60 mL/min (>60); Globulin 3.8 g/dL (2.2-4.2); Glucose 97 mg/dL (74-106); Potassium 3.6 mmol/L (3.5-5.1); Protein, Total 6.4 g/dL (6.4-8.2); Sodium Level 140 mmol/L (136-145)
[2024-05-12 11:00] LABS: BNP,B-Type NATRIURETIC PEPTIDE 403.6 pg/mL (0-100)
== END ==
LOC: OLS.SW 07:20
PROVIDERS: PCP Internal Medicine; Referring Provider Family Medicine; Visit Provider Family Medicine
DX: I11.0 Hypertensive heart disease with heart failure (principal); I50.9 Heart failure, unspecified; E55.9 Vitamin D deficiency, unspecified
CPT/HCPCS: 36415; 80053; 82306; 83880; 85027

== ENCOUNTER → 2024-05-27 04:00 | Outpatient (REF) | payer MEDICARE, SELFPAY ==
[2024-05-27 08:32] LABS: Hematocrit 35.3 % (37-47); Hemoglobin 10.5 g/dL (12.0-15.0); Mean Corp Hgb Conc 29.7 g/dL (32-36); Mean Corpuscular Volume 80.6 fL (81-99); Mean Platelet Vol. 9.2 fl (6.2-12.0); POSITIVE MORPHOLOGY YES; Platelet Count 149 K/mm3 (150-450); RBC Distribution Width CV 20.2 % (11.6-14.6); RBC Distribution Width SD 58.6 fl (35.1-43.9); Red Blood Count 4.38 M/mm3 (4.2-5.4); White Blood Count 5.3 K/mm3 (4.4-11.0)
[2024-05-27 08:36] LABS: Scan Indicated on CBC? Y/N YES- FLAGS NOTED
[2024-05-27 08:56] LABS: Anion Gap 7 (5-15); BUN 25 mg/dL (7-18); Calcium,Total 8.7 mg/dL (8.5-10.1); Chloride 104 mmol/L (98-107); Creatinine, Serum 1.25 mg/dL (0.55-1.02); EST Glomerular Filtration Rate 44 mL/min (>60); Est Glom Filt Rate - Afr Amer 54 mL/min (>60); Glucose 101 mg/dL (74-106); Potassium 3.7 mmol/L (3.5-5.1); Sodium Level 141 mmol/L (136-145)
== END ==
LOC: OLS.SW 04:00
PROVIDERS: PCP Internal Medicine; Referring Provider Internal Medicine; Visit Provider Internal Medicine
DX: E11.9 Type 2 diabetes mellitus without complications (principal)
CPT/HCPCS: 36415; 80048; 85027

== ENCOUNTER → 2024-06-02 05:00 | Outpatient (REF) | payer MEDICARE, SELFPAY ==
[2024-06-02 09:27] LABS: Hemoglobin 10.2 g/dL (12.0-15.0); Mean Corpuscular Hgb 24.5 pg (27.0-32.0); Mean Corpuscular Volume 81.5 fL (81-99); Mean Platelet Vol. 9.8 fl (6.2-12.0); Platelet Count 174 K/mm3 (150-450); RBC Distribution Width SD 58.6 fl (35.1-43.9); Red Blood Count 4.17 M/mm3 (4.2-5.4); White Blood Count 6.4 K/mm3 (4.4-11.0)
[2024-06-02 20:57] LABS: Anion Gap 4 (5-15); BUN 27 mg/dL (7-18); BUN/Creat Ratio 21.6 RATIO (10-20); Calcium,Total 9.1 mg/dL (8.5-10.1); Chloride 101 mmol/L (98-107); Creatinine, Serum 1.25 mg/dL (0.55-1.02); EST Glomerular Filtration Rate 44 mL/min (>60); Est Glom Filt Rate - Afr Amer 54 mL/min (>60); Glucose 101 mg/dL (74-106); Potassium 4.2 mmol/L (3.5-5.1); Sodium Level 138 mmol/L (136-145)
== END ==
LOC: OLS.SW 05:00
PROVIDERS: PCP Internal Medicine; Visit Provider Internal Medicine
DX: E11.9 Type 2 diabetes mellitus without complications (principal)
CPT/HCPCS: 36415; 80048; 85027

== ENCOUNTER → 2024-06-03 | Outpatient (REF) | payer MEDICARE, SELFPAY ==
[2024-06-03 09:10] LABS: Hematocrit 33.1 % (37-47); Mean Corp Hgb Conc 30.2 g/dL (32-36); Mean Corpuscular Hgb 24.4 pg (27.0-32.0); Mean Corpuscular Volume 80.9 fL (81-99); Mean Platelet Vol. 9.7 fl (6.2-12.0); Platelet Count 156 K/mm3 (150-450); RBC Distribution Width SD 58.8 fl (35.1-43.9); Red Blood Count 4.09 M/mm3 (4.2-5.4)
[2024-06-03 19:20] LABS: Anion Gap 10 (5-15); BUN 30 mg/dL (4-19); Calcium 9.3 mg/dL (7.6-11.0); Carbon Dioxide 28.1 mmol/L (22.0-29.0); Chloride 101 mmol/L (96-108); Creatinine, Serum 1.2 mg/dL (0.6-1.0); EST Glomerular Filtration Rate 47 (>60); Glucose 97 mg/dL (70-99); Potassium 4.4 mmol/L (3.3-5.1); Sodium Level 139 mmol/L (133-145)
== END ==
LOC: OLS.SW 04:00
PROVIDERS: PCP Internal Medicine; Referring Provider Family Medicine; Visit Provider Family Medicine
DX: J44.9 Chronic obstructive pulmonary disease, unspecified (principal); I48.20 Chronic atrial fibrillation, unspecified
CPT/HCPCS: 36415; 80048; 85027

== ENCOUNTER → 2024-06-04 | Outpatient (REF) | payer MEDICARE, SELFPAY ==
[2024-06-04 09:26] LABS: Anion Gap 12 (5-15); BUN 28 mg/dL (4-19); BUN/Creat Ratio 24.1 RATIO (10-20); Calcium 9.1 mg/dL (7.6-11.0); Carbon Dioxide 27.3 mmol/L (22.0-29.0); Chloride 101 mmol/L (96-108); Creatinine, Serum 1.2 mg/dL (0.6-1.0); EST Glomerular Filtration Rate 49 (>60); Glucose 122 mg/dL (70-99); Potassium 4.1 mmol/L (3.3-5.1); Sodium Level 140 mmol/L (133-145)
== END ==
LOC: OLS.SW 05:00
PROVIDERS: PCP Internal Medicine; Visit Provider Internal Medicine
DX: I12.9 Hypertensive chronic kidney disease with stage 1 through stage 4 chronic kidney disease, or unspecified chronic kidney disease (principal); N18.9 Chronic kidney disease, unspecified
CPT/HCPCS: 36415; 80048

== ENCOUNTER → 2024-06-24 | Outpatient (REF) | payer MEDICARE, SELFPAY ==
[2024-06-24 08:12] LABS: Hematocrit 32.9 % (37-47); Hemoglobin 10.3 g/dL (12.0-15.0); Mean Corp Hgb Conc 31.3 g/dL (32-36); Mean Corpuscular Hgb 24.9 pg (27.0-32.0); Mean Corpuscular Volume 79.5 fL (81-99); Mean Platelet Vol. 9.4 fl (6.2-12.0); POSITIVE MORPHOLOGY YES; Platelet Count 137 K/mm3 (150-450); RBC Distribution Width CV 20.1 % (11.6-14.6); RBC Distribution Width SD 57.4 fl (35.1-43.9); Red Blood Count 4.14 M/mm3 (4.2-5.4); White Blood Count 6.3 K/mm3 (4.4-11.0)
[2024-06-24 08:15] LABS: Scan Indicated on CBC? Y/N YES- FLAGS NOTED
[2024-06-24 08:28] LABS: Anion Gap 11 (5-15); BUN 21 mg/dL (4-19); BUN/Creat Ratio 18.1 RATIO (10-20); Calcium,Total 8.9 mg/dL (7.6-11.0); Carbon Dioxide 26.3 mmol/L (21.0-32.0); Chloride 103 mmol/L (98-108); Creatinine, Serum 1.16 mg/dL (0.70-1.20); EST Glomerular Filtration Rate 49 (>60); Glucose 102 mg/dL (70-99); Potassium 3.8 mmol/L (3.3-5.1); Sodium Level 140 mmol/L (133-145)
== END ==
LOC: OLS.SW 05:00
PROVIDERS: PCP Internal Medicine; Visit Provider Family Medicine
DX: E11.9 Type 2 diabetes mellitus without complications (principal)
CPT/HCPCS: 36415; 80048; 85027

== ENCOUNTER 2024-07-01 11:19 | Day surgery (SDC) | payer MEDICARE, SELFPAY ==
--- NOTE | 2024-06-30 14:26 | PAT.ANESEVAL ---
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 When Was Last Pacemaker Check QUESTION #4 FULL TEXT: You/Your Family Experience fever (hyperthermia) with Anesthesia Last Oral Intake Last Oral intake: Last Oral Intake NPO since Meds taken in AM with sips of water? Meds patient instructed to take am of surgery PONV PONV - horticultural farm manager: PONV - horticultural farm manager Female Yes 06/30/24 11:18 HX of Motion Sickness No 06/30/24 11:18 HX of N/V After Surgery No 06/30/24 11:18 Non-Smoker Yes 06/30/24 11:18 Duration of Surgery greater No 06/30/24 11:18 than 60 minutes Number of Risk Factors 2 06/30/24 11:18 PONV Score Moderate Risk 06/30/24 11:18 Height & Weight Height & Weight: Anesthesia: Height & Weight Height 5 ft 6 in 04/28/24 10:59 Respiratory Assessment Respiratory Assessment - horticultural farm manager: Respiratory Tract Infection Hx - horticultural farm manager Hx Respiratory Tract Infection No 06/30/24 11:18 STOP Sleep Apnea STOP Sleep Apnea - horticultural farm manager: STOP Sleep Apnea - horticultural farm manager Hx Hypertension Yes 06/30/24 11:18 Hx Sleep Apnea No 06/30/24 11:18 CPAP BIPAP Do you snore loudly (louder No 06/30/24 11:18 than talking or can be heard Do you often feel tired/ No 06/30/24 11:18 fatigued/ sleepy during daytime? Has anyone observed you stop No 06/30/24 11:18 breathing during sleep? STOP Results Negative 06/30/24 11:18 QUESTION #5 FULL TEXT : Do you snore loudly (louder than talking or can be heard through closed doors)? Tobacco Use History Tobacco Use History - horticultural farm manager: Tobacco Use History - horticultural farm manager Tobacco Use Smoking Status Never smoker 06/30/24 11:18 Hx Tobacco Use No 06/30/24 11:18 Years Smoking Packs Smoked per Day Smoking Cessation Date was within the last 15 years Hx Smoking Cessation Date Hx Smoking Cessation Counseling Hematologic Medial History Hematologic Hx - horticultural farm manager: Hematologic Medical Hx - decaler Hx of Blood Transfusion No 06/30/24 11:18 Hx of Transfusion in last 3 No 06/30/24 11:18 Months Date of Last Transfusion (if within last 3 months) Ever experience any problems No 06/30/24 11:18 with transfusion(s)? Specify any problems Hx of Preganancy in last 3 No 06/30/24 11:18 Months Nurse Filling Out Transfusion DSCHRIBER 06/30/24 11:18 & Questions: Date: 06/30/24 06/30/24 11:18 Time: 11:21 06/30/24 11:18 Patient unable to answer at this time (ie. confused, unrespo /Reproduction History /Reproductive History - horticultural farm manager: /Reproductive Hx- horticultural farm manager Hx Now No 06/30/24 11:18 Gestational Age (in weeks): EDC: Hx Hx Para Hx Section SAB No 06/30/24 11:18 [facility] Medical History (Updated 06/30/24 @ 11:38 by Avelina Thomas) Lives in [facility] Wears glasses Wears partial dentures Marijuana use Discoloration of skin Open wound Insulin dependent diabetes mellitus Uses wheelchair Arthritis History of renal disease Low iron High cholesterol Back pain Dietary restriction History of GI bleed Non-smoker Chronic cough History of edema History of echocardiogram Cardiology follow-up encounter History of CHF (congestive heart failure) History of atrial fibrillation Palpitations Magnesium deficiency Diarrhea Asthma Vertebral osteomyelitis Discitis of thoracic region Intractable back pain Syndrome of inappropriate secretion of antidiuretic hormone Age-related incipient cataract of both eyes Iron deficiency anemia Generalized muscle weakness Morbid obesity with BMI of 40.0-44.9, adult Vitamin D deficiency Venous stasis ulcer with varicose veins Renal lesion Primary osteoarthritis of both knees History of colonic polyps Neurodermatitis Lymphedema of leg Lumbar facet arthropathy Benign essential hypertension Anemia Anxiety Depression CHF (congestive heart failure) A-fib COPD (chronic obstructive pulmonary disease) Kidney disease Diabetes Hyperlipidemia History of ESBL E. coli infection History of infection with vancomycin resistant Enterococcus (VRE) Altered mental status Home Medications ?Medication ?Instructions ?Recorded ?Last Taken ?Type cholecalciferol (vitamin D3) 25 25 mcg PO DAILY 12/31/23 Unknown History mcg (1,000 unit) capsule insulin lispro 100 unit/mL See Protocol subcut .TIDCM&HS 12/31/23 Unknown History subcutaneous pen (Humalog KwikPen (U-100) Insulin) multivitamin (Daily Multi-Vitamin 1 tab PO DAILY 12/31/23 Unknown History tablet) nystatin 100,000 unit/gram topical 1 applic topical BID PRN skin 12/31/23 Unknown History powder irritation polyethylene glycol 3350 17 17 g PO BID PRN constipation 12/31/23 Unknown History gram/dose oral powder potassium chloride 10 mEq 20 meq PO DAILY 12/31/23 Unknown History capsule,extended release sennosides 8.6 mg tablet 17.2 mg PO BID PRN constipation 12/31/23 Unknown History venlafaxine 75 mg capsule,extended 150 mg PO DAILY 12/31/23 Unknown History release 24 hr ascorbic acid (vitamin C) 500 mg 500 mg PO BIDCM #0 tabs 01/08/24 Unknown Rx tablet carvedilol 3.125 mg tablet 3.125 mg PO BID #0 tabs 01/08/24 Unknown Rx lisinopril 2.5 mg tablet 2.5 mg PO DAILY #0 tabs 01/08/24 Unknown Rx melatonin 3 mg tablet 6 mg (2 x 3 mg) PO QHS #0 tabs 01/08/24 Unknown Rx buspirone 5 mg tablet 5 mg PO BID 03/28/24 Unknown History dapagliflozin propanediol 5 mg 5 mg PO DAILY 03/28/24 Unknown History tablet (Farxiga) aspirin 325 mg tablet 325 mg PO QDAY 04/28/24 Unknown History ferrous sulfate 325 mg (65 mg 325 mg PO QDAY 04/28/24 Unknown History iron) tablet furosemide 20 mg tablet 20 mg PO QAM 04/28/24 Unknown History pantoprazole 40 mg tablet,delayed 40 mg PO QDAY #90 tabs 04/28/24 Unknown Rx release cyclobenzaprine 10 mg tablet 5 mg PO TID 06/10/24 Unknown History acetaminophen 325 mg tablet 650 mg PO Q4H PRN Pain -08/16 Or 06/30/24 Unknown History Fever>100.7 albuterol sulfate 90 mcg/actuation 2 inh inhalation Q6H PRN shortness 06/30/24 Unknown History aerosol inhaler of breath or wheezing escitalopram oxalate 10 mg tablet 15 mg PO DAILY 06/30/24 Unknown History (Lexapro) guaifenesin 400 mg tablet 400 mg PO Q4H PRN cough 06/30/24 Unknown History insulin glargine 100 unit/mL (3 8 unit subcut DAILY 06/30/24 Unknown History mL) subcutaneous pen (Lantus Solostar U-100 Insulin) polyethylene glycol 3350 17 17 g PO QODAY 06/30/24 Unknown History gram/dose oral powder (Miralax) Allergy/AdvReac Type Severity Reaction Status Date / Time No Known Allergies Allergy Verified 06/30/24 11:01 Family History (Updated 04/10/24 @ 15:56 by Sophie Mcdermott) Mother Alzheimer dementia Breast cancer Heart disease Brother Cystic fibrosis Surgical History (Updated 06/10/24 @ 11:28 by Cameron Morfin RN) History of colonoscopy S/P laminectomy History of tubal ligation Hx of cholecystectomy H/O section Social History (Updated 04/10/24 @ 15:54 by Sophie Mcdermott) Smoking Status: Never smoker alcohol intake: never Audit: Pertinent Findings Pertinent Findings EKG Perinent findings: March 28, 2024. Atrial fibrillation. Left axis deviation. Cannot rule out anterior infarct (cited on or before December 31, 2023.) Echo (EF%) pertinent findings: January 01, 2024. Ejection fraction is 35%. There is moderate to severe global hypokinesis of the left ventricle. PA systolic pressure is 45 mmHg. Moderate aortic stenosis is noted. Recommendation Anesthesia Recommendation Anesthesia recommendation: OPTIMIZED for anesthesia (Patient has moderate aortic stenosis. Need to avoid increases in heart rate or decreases in blood pressure. Phenylephrine would be a good vasoactive medication for this.)
[2024-07-01] VITALS (8 sets, daily range): BP systolic 98–123; BP diastolic 70–87; PULSE 81–97; RESP 16–18; TEMP 36.4–36.8; O2SAT 96–99; BMI 32.4
[2024-07-01 12:05] LABS: Bedside Glucose 62 mg/dL (74-106)
--- NOTE | 2024-07-01 12:19 | PCM.PRE.AN2 ---
ASA Classification* ASA Classification ASA Classification: 3 Assessment & Plan Anesthesia* Anesthesia Assessment Anesthesia Assessment: Discussed sedation and/or anesthesia options, risks, benefits, and alternatives with patient/parents/legal guardian/POA. Questions invited. The patient/parents/legal guardian/POA seems to understand and agrees to proceed with anesthesia plan. Reviewed the physical assessment, medical history, allergy history and patient home medications list prior to surgery/procedure/anesthetic and documented any changes. Performed airway and anesthesia risk assessments. Anesthesia Type Anesthesia Type: MAC (Moderate aortic stenosis. Avoid increases heart rates and low blood pressure. Consider phenylephrine as a vasoactive agent) History Source History Obtained from:: Patient and Chart Anesthesia Focused Assessment* Temperature: 98.3 F Pulse Rate: 90 Blood Pressure: 112/84 Respiratory Rate: 16 Pulse Ox: 98 Oxygen Delivery Method: Room Air Airway Assessment Mouth opens: >3 cm Mallampati Score: I Teeth Condition: Dentures (Upper dentures are out.) and Missing (Edentulous on the bottom.) Neck Range of motion (ROM): Limited ROM (Somewhat decreased extension) Focused Labs Anesthesia Preop lab: CBC WBC 6.3 K/mm3 (4.4-11.0) 06/24/24 07:00 06/24/24 RBC 4.14 M/mm3 (4.2-5.4) L 06/24/24 07:00 06/24/24 Hgb 10.3 g/dL (12.0-15.0) L 06/24/24 07:00 06/24/24 Hct 32.9 % (37-47) L 06/24/24 07:00 06/24/24 Plt Count 137 K/mm3 (150-450) L 06/24/24 07:00 06/24/24 CHEMISTRY Potassium 3.8 mmol/L (3.3-5.1) 06/24/24 07:00 06/24/24 Sodium 140 mmol/L (133-145) 06/24/24 07:00 06/24/24 Magnesium 1.7 mg/dL (1.6-2.6) 01/02/24 03:30 01/02/24 Phosphorus 3.4 mg/dL (2.5-4.9) 01/01/24 04:42 01/01/24 BUN 21 mg/dL (4-19) H 06/24/24 07:00 06/24/24 Creatinine 1.16 mg/dL (0.70-1.20) 06/24/24 07:00 06/24/24 Glucose 102 mg/dL (70-99) H 06/24/24 07:00 06/24/24 POC Glucose 62 mg/dL (74-106) L 07/01/24 11:42 07/01/24 TSH 1.650 uIU/mL (0.358-3.740) 01/01/24 04:42 01/01/24 COAG PT 20.9 SECONDS (11.7-14.9) H 12/31/23 17:57 12/31/23 Pre-Assessment Diagnosis/Proposed Procedure Planned Operative Procedure(s): CSCOPE/EGD Anesthesia History Anesthesia History - intensive care medicine specialist: Anesthesia History - intensive care medicine specialist Hx Hospitalization Yes: 12/2023 PNEUMONIA AND 06/30/24 11:18 COVID Any Problems With Anesthesia No 06/30/24 11:18 Cholinesterase deficiency No 06/30/24 11:18 You/Your Family Experience No 06/30/24 11:18 fever (hyperthermia) with Relationship Recent Exposure to Contagious No 07/01/24 11:58 Disease Does patient have nerve No 06/30/24 11:18 stimulator Patient instructed to have device shut off --Does patient have Pacemaker No 07/01/24 11:58 or ICD? When Was Last Pacemaker Check QUESTION #4 FULL TEXT: You/Your Family Experience fever (hyperthermia) with Anesthesia Last Oral Intake Last Oral intake: Last Oral Intake NPO since Meds taken in AM with sips of water? Meds patient instructed to take am of surgery Any additional information?: Yes NPO since: 00:00 Meds taken in AM with sips of water?: No PONV PONV - intensive care medicine specialist: PONV - intensive care medicine specialist Female Yes 06/30/24 11:18 HX of Motion Sickness No 06/30/24 11:18 HX of N/V After Surgery No 06/30/24 11:18 Non-Smoker Yes 06/30/24 11:18 Duration of Surgery greater No 06/30/24 11:18 than 60 minutes Number of Risk Factors 2 06/30/24 11:18 PONV Score Moderate Risk 06/30/24 11:18 Height & Weight Height & Weight: Anesthesia: Height & Weight Height 5 ft 6 in 07/01/24 11:58 Weight: 91.172 kg 07/01/24 11:58 Body Mass Index (BMI) 32.4 07/01/24 11:58 Respiratory Assessment Respiratory Assessment - intensive care medicine specialist: Respiratory Tract Infection Hx - intensive care medicine specialist Hx Respiratory Tract Infection No 06/30/24 11:18 STOP Sleep Apnea STOP Sleep Apnea - intensive care medicine specialist: STOP Sleep Apnea - intensive care medicine specialist Hx Hypertension Yes 06/30/24 11:18 Hx Sleep Apnea No 06/30/24 11:18 CPAP BIPAP Do you snore loudly (louder No 06/30/24 11:18 than talking or can be heard Do you often feel tired/ No 06/30/24 11:18 fatigued/ sleepy during daytime? Has anyone observed you stop No 06/30/24 11:18 breathing during sleep? STOP Results Negative 06/30/24 11:18 QUESTION #5 FULL TEXT : Do you snore loudly (louder than talking or can be heard through closed doors)? 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 Specify any problems Hx of Preganancy in last 3 No 06/30/24 11:18 Months Nurse Filling Out Transfusion DSCHRIBER 06/30/24 11:18 & Questions: Date: 06/30/24 06/30/24 11:18 Time: 11:21 06/30/24 11:18 Patient unable to answer at this time (ie. confused, unrespo /Reproduction History /Reproductive History - intensive care medicine specialist: /Reproductive Hx- intensive care medicine specialist Hx Now No 06/30/24 11:18 Gestational Age (in weeks): EDC: Hx Hx Para Hx Section SAB No 06/30/24 11:18 [facility] Medical History Lives in assisted Wears glasses Wears partial dentures Marijuana use Discoloration of skin Open wound Insulin dependent diabetes mellitus Uses wheelchair Arthritis History of renal disease Low iron High cholesterol Back pain Dietary restriction History of GI bleed Non-smoker Chronic cough History of edema History of echocardiogram Cardiology follow-up encounter History of CHF (congestive heart failure) History of atrial fibrillation Palpitations Magnesium deficiency Diarrhea Asthma Vertebral osteomyelitis Discitis of thoracic region Intractable back pain Syndrome of inappropriate secretion of antidiuretic hormone Age-related incipient cataract of both eyes Iron deficiency anemia Generalized muscle weakness Morbid obesity with BMI of 40.0-44.9, adult Vitamin D deficiency Venous stasis ulcer with varicose veins Renal lesion Primary osteoarthritis of both knees History of colonic polyps Neurodermatitis Lymphedema of leg Lumbar facet arthropathy Benign essential hypertension Anemia Anxiety Depression CHF (congestive heart failure) A-fib COPD (chronic obstructive pulmonary disease) Kidney disease Diabetes Hyperlipidemia History of ESBL E. coli infection History of infection with vancomycin resistant Enterococcus (VRE) Altered mental status Home Medications ?Medication ?Instructions ?Recorded ?Last Taken ?Type cholecalciferol (vitamin D3) 25 25 mcg PO DAILY 12/31/23 Unknown History mcg (1,000 unit) capsule insulin lispro 100 unit/mL See Protocol subcut .TIDCM&HS 12/31/23 Unknown History subcutaneous pen (Humalog KwikPen (U-100) Insulin) multivitamin (Daily Multi-Vitamin 1 tab PO DAILY 12/31/23 Unknown History tablet) nystatin 100,000 unit/gram topical 1 applic topical BID PRN skin 12/31/23 Unknown History powder irritation polyethylene glycol 3350 17 17 g PO BID PRN constipation 12/31/23 Unknown History gram/dose oral powder potassium chloride 10 mEq 20 meq PO DAILY 12/31/23 Unknown History capsule,extended release sennosides 8.6 mg tablet 17.2 mg PO BID PRN constipation 12/31/23 Unknown History venlafaxine 75 mg capsule,extended 150 mg PO DAILY 12/31/23 Unknown History release 24 hr ascorbic acid (vitamin C) 500 mg 500 mg PO BIDCM #0 tabs 01/08/24 Unknown Rx tablet carvedilol 3.125 mg tablet 3.125 mg PO BID #0 tabs 01/08/24 Unknown Rx lisinopril 2.5 mg tablet 2.5 mg PO DAILY #0 tabs 01/08/24 Unknown Rx melatonin 3 mg tablet 6 mg (2 x 3 mg) PO QHS #0 tabs 01/08/24 Unknown Rx buspirone 5 mg tablet 5 mg PO BID 03/28/24 Unknown History dapagliflozin propanediol 5 mg 5 mg PO DAILY 03/28/24 Unknown History tablet (Farxiga) aspirin 325 mg tablet 325 mg PO QDAY 04/28/24 Unknown History ferrous sulfate 325 mg (65 mg 325 mg PO QDAY 04/28/24 Unknown History iron) tablet furosemide 20 mg tablet 20 mg PO QAM 04/28/24 Unknown History pantoprazole 40 mg tablet,delayed 40 mg PO QDAY #90 tabs 04/28/24 Unknown Rx release cyclobenzaprine 10 mg tablet 5 mg PO TID 06/10/24 Unknown History acetaminophen 325 mg tablet 650 mg PO Q4H PRN Pain 1-08/16 Or 06/30/24 Unknown History Fever>100.7 albuterol sulfate 90 mcg/actuation 2 inh inhalation Q6H PRN shortness 06/30/24 Unknown History aerosol inhaler of breath or wheezing escitalopram oxalate 10 mg tablet 15 mg PO DAILY 06/30/24 Unknown History (Lexapro) guaifenesin 400 mg tablet 400 mg PO Q4H PRN cough 06/30/24 Unknown History insulin glargine 100 unit/mL (3 8 unit subcut DAILY 06/30/24 07/01/24 History mL) subcutaneous pen (Lantus Solostar U-100 Insulin) polyethylene glycol 3350 17 17 g PO QODAY 06/30/24 Unknown History gram/dose oral powder (Miralax) Allergy/AdvReac Type Severity Reaction Status Date / Time No Known Allergies Allergy Verified 07/01/24 11:58 Family History Mother Alzheimer dementia Breast cancer Heart disease Brother Cystic fibrosis Surgical History History of colonoscopy S/P laminectomy History of tubal ligation Hx of cholecystectomy H/O section Social History Smoking Status: Never smoker alcohol intake: never Review of Systems (Anesthesia) ROS Narrative System reviewed and no additional complaints, except as documented.
--- NOTE | 2024-07-01 12:30 | EGD_PTH ---
PATIENT: SUSANNE DUPREE LOC: EN U#:[id number] AGE/SX: 78/F ROOM: RE07/01/[address]: Dr. Jacinto Munoz DO : 1945 BED: DIS: 07/01/2024 SPEC #: [id number] RECD: 07/02/24 12:08 STATUS: ADAM RELast #: [id number] CAREN: 07/01/24 12:[address]: Jacinto Munoz DEPT: SURGICAL PATHOLOGY RECD BY: Mookie Lazar ENTERED: 07/02/24 12:09 SP TYPE: EGD BIOPSY ELLE DR: Dr. April Pacheco MD Tissues: A - Gastric mucous membrane B - Cecum, NOS Procedures: Surgery Specimen Level IV HEADER OPERATION: Colonoscopy with polypectomy, EGD with biopsy PRE-OP DIAGNOSIS: Anemia TISSUE SUBMITTED: A- Gastric ulcer biopsy, B- Cecal polyp MICROSCOPIC DIAGNOSIS A. Stomach, ulcer, biopsy: * Foveolar hyperplasia. * No ulceration is seen in these sections. B. Colon, cecum, polyp, biopsy * Tubulovillous adenoma, multiple fragments. MICROSCOPIC DESCRIPTION Slides are reviewed. GROSS DESCRIPTION Specimen A-received in formalin labeled, Susanne Dupree, and designated gastric ulcer biopsy, are two chase tissue fragments aggregating to 0.5 x 0.4 x 0.2 cm. Totally submitted in one cassette. Specimen B-received in formalin labeled, Susanne Dupree, and designated cecal polyp, are multiple chase to red-brown, polypoid, and irregularly-shaped, soft tissue fragments. The polypoid fragment measures 1.0 x 0.9 x 0.6 cm. The smaller fragments aggregate to 0.8 x 0.8 x 0.2 cm. Totally submitted as follows:Cassette Summary: B1-larger polypoid fragment inked black, trisectedB2-remaining smaller fragments JK 07/02/2024 CPT:00897u9
--- NOTE | 2024-07-01 12:37 | HP.PCM_ITS ---
HPI - General General Date of Admission: 07/01/24 Date of Service: 07/01/24 Chief Complaint: Anemia HPI Narrative DARYN SHAH, is a 78 F who presents for the evaluation of anemia LABS 04/14/2024 HGB 7.7, MCV 78, Fe 17 04/07/2024 HGB 7.5 04/03/2024 HGB 7.2 03/28/2024 HGB 76.9 01/28/2024 HGB 8.4 01/09/2024 HGB 9.7 12/03/2023 HGB 9.4 - per patient last colon was in 2019 - she reports her initial colonoscopy prior to 2018 did reveal colon polyps - she was adopted and does not know her family history - denies any h/o EGD - reports her Xarelto was discontinued - now taking ASA 325mg daily - this was started 04/04/2024 - started on Fe 325mg daily on 04/15/2024 - Famotidine 20mg BID - denies any HB or indigestion - Vitamin C BID - reports she has had a weight loss of 100lbs over the past few years due to decreased mobility which has resulted in decreased snacking - she also reports prior to admission to [facility] she had 30-40lb of peripheral edema - admitted to nursing facility 10/15/2023 - C. Diff a year ago - states her stools have never been the same - denies having any diarrhea or frequent BM - stools are now soft - denies any epistaxis - denies any h/o GIB - denies any melena - denies any BRBPR - denies any HB - denies any ABD pain - denies any N/V - denies any SOB - CKD (GFR 52) - Easy bruising [facility] Medical History (Updated 07/01/24 @ 12:[address] Casey Friend, DO) Lives in long-term Wears glasses Wears partial dentures Marijuana use Discoloration of skin Open wound Insulin dependent diabetes mellitus Uses wheelchair Arthritis History of renal disease Low iron High cholesterol Back pain Dietary restriction History of GI bleed Non-smoker Chronic cough History of edema History of echocardiogram Cardiology follow-up encounter History of CHF (congestive heart failure) History of atrial fibrillation Palpitations Magnesium deficiency Diarrhea Asthma Vertebral osteomyelitis Discitis of thoracic region Intractable back pain Syndrome of inappropriate secretion of antidiuretic hormone Age-related incipient cataract of both eyes Iron deficiency anemia Generalized muscle weakness Morbid obesity with BMI of 40.0-44.9, adult Vitamin D deficiency Venous stasis ulcer with varicose veins Renal lesion Primary osteoarthritis of both knees History of colonic polyps Neurodermatitis Lymphedema of leg Lumbar facet arthropathy Benign essential hypertension Anemia Anxiety Depression CHF (congestive heart failure) A-fib COPD (chronic obstructive pulmonary disease) Kidney disease Diabetes Hyperlipidemia History of ESBL E. coli infection History of infection with vancomycin resistant Enterococcus (VRE) Altered mental status Home Medications ?Medication ?Instructions ?Recorded ?Last Taken ?Type cholecalciferol (vitamin D3) 25 25 mcg PO DAILY Unknown History mcg (1,000 unit) capsule insulin lispro 100 unit/mL See Protocol subcut .TIDCM& HS 12/31/23 Unknown History subcutaneous pen (Humalog KwikPen (U-100) Insulin) multivitamin (Daily Multi-Vitamin 1 tab PO DAILY 12/30 Unknown History tablet) nystatin 100,000 unit/gram topical 1 applic topical BI D PRN skin 12/31/23 Unknown History powder irritation polyethylene glycol 3350 17 17 g PO BID PRN constipati on 12/31/23 Unknown History gram/dose oral powder potassium chloride 10 mEq 20 meq PO DAILY 12/31/23 Unk nown History capsule,extended release sennosides 8.6 mg tablet 17.2 mg PO BID PRN constipat ion 12/31/23 Unknown History venlafaxine 75 mg capsule,extended 150 mg PO DAILY Unknown History release 24 hr ascorbic acid (vitamin C) 500 mg 500 mg PO BIDCM #0 ta bs 01/08/24 Unknown Rx tablet carvedilol 3.125 mg tablet 3.125 mg PO BID #0 tabs 05/02 Unknown Rx lisinopril 2.5 mg tablet 2.5 mg PO DAILY #0 tabs 05/02 Unknown Rx melatonin 3 mg tablet 6 mg (2 x 3 mg) PO QHS #0 ta bs 01/08/24 Unknown Rx buspirone 5 mg tablet 5 mg PO BID 03/28/24 Unknown History dapagliflozin propanediol 5 mg 5 mg PO DAILY 03/28/24 Unknown History tablet (Farxiga) aspirin 325 mg tablet 325 mg PO QDAY 04/28/24 Unkn own History ferrous sulfate 325 mg (65 mg 325 mg PO QDAY 04/28/24 Unknown History iron) tablet furosemide 20 mg tablet 20 mg PO QAM 04/28/24 Unknow n History pantoprazole 40 mg tablet,delayed 40 mg PO QDAY #90 ta bs 04/28/24 Unknown Rx release cyclobenzaprine 10 mg tablet 5 mg PO TID 06/10/24 Unkn own History acetaminophen 325 mg tablet 650 mg PO Q4H PRN Pain 1- Or 06/30/24 Unknown History Fever>100.7 albuterol sulfate 90 mcg/actuation 2 inh inhalation Q6 H PRN shortness 06/30/24 Unknown History aerosol inhaler of breath or wheezing escitalopram oxalate 10 mg tablet 15 mg PO DAILY 06/30 Unknown History (Lexapro) guaifenesin 400 mg tablet 400 mg PO Q4H PRN cough 06/08 08/01 Unknown History insulin glargine 100 unit/mL (3 8 unit subcut DAILY 07/01/24 History mL) subcutaneous pen (Lantus Solostar U-100 Insulin) polyethylene glycol 3350 17 17 g PO QODAY 06/30/24 Unk nown History gram/dose oral powder (Miralax) Allergy/AdvReac Type Severity Reaction Status Date / Time No Known Allergies Allergy Verified 07/01/24 11:58 Family History Mother Alzheimer dementia Breast cancer Heart disease Brother Cystic fibrosis Surgical History History of colonoscopy S/P laminectomy History of tubal ligation Hx of cholecystectomy H/O section Social History Smoking Status: Never smoker alcohol intake: never ROS Constitutional Constitutional: Denies fatigue, fever(s), poor appetite, weight gain or weight loss Gastrointestinal Gastrointestinal: Denies belching, bloating, change in bowel habits, change in stool character, chewing difficulty, coffee ground emesis, constipation, cramping, diarrhea, dyspepsia, dysphagia, early satiety, excessive flatus, fecal incontinence, heartburn, hematemesis, hematochezia, hemorrhoids, loose stools, melena, nausea, odynophagia, rectal bleeding, tenesmus, vomiting or weight changes Vital Signs Vital Signs Vital Signs: 07/01/24 11:58 07/01/24 11:58 07/01/24 12:29 Temperature 98.3 F 98.3 F Temperature Source Temporal Pulse Rate 90 90 Respiratory Rate 16 16 Respiratory Pattern Normal Blood Pressure 112/84 H 112/84 H Blood Pressure Mean 93 Blood Pressure Source Monitor Blood Pressure Position Semi-Fowlers Blood Pressure Location Left Arm Pulse Ox 98 98 Oxygen Delivery Method Room Air Room Air Weight Weight: 201 lb Body Mass Index (BMI) 32.4 Physical Exam Const alert, oriented x3, no apparent distress and healthy appearing General Appearance: cooperative GI normal to inspection, nondistended, normoactive bowel sounds, soft to palpation, non-tender and non-distended Percussion: normal to percussion Rectal Exam: deferred Results Lab / Micro Data Labs: Laboratory Results - last 24 hr 07/01/24 11:42: POC Glucose 62 L Assessment & Plan Assessment/Plan (1) Anemia: PLAN: Assessment and Plan Assessment and Plan (1) Anemia: Qualifiers: Anemia type: iron deficiency Iron deficiency anemia type: unspecified iron deficiency Qualified Code(s): D50.9 - Iron deficiency anemia, unspecified Orders: Orders CBC W/Diff, Automated 2 Weeks D64.9 - Anemia, unspecified Medications: New pantoprazole 40 mg PO QDAY 90 tabs 1RF peg 3350-electrolytes 236-22.74-6.74 -5.86 gram (Golytely) take as directed for split dose bowel prep, until fecal effluent is clear 240 mL PO Q10M 4,000 mL 0RF Discontinued famotidine Discontinued Reason: Order Changed 20 mg PO BID Plan 78y/o female presents for consultation of anemia. PMH is significant for anemia, CHF, A-fib on Xarelto, COPD, IDDM, chronic kidney disease. She was seen in the ED on 03/28/2024 for HGB 6.9 without any s/s of bleeding. Labs completed in ED revealed HGB 7.7 with occult positive stools. Xarelto has been discontinued and she is now taking ASA 325mg daily. She has also been started on ferrous sulfate 325mg daily. Most recent labs completed 04/14/2024 revealed HGB stable at 7.7. I have discontinued famotidine and started her on PPI daily. She will proceed with colonoscopy and EGD. I recommend a repeat CBC in 2 weeks. Patient Instructions: 1. Discontinue Famotidine 2. Start pantoprazole 40mg QD 3. CBC in 2 weeks 4. Colonoscopy and EGD - scheduled at [facility] with Dr. Munoz (Golyte bowel prep) 5. Follow-up in the office 1-2 weeks post procedure
--- NOTE | 2024-07-01 14:05 | OP.CCLET_ITS ---
07/01/2024 April Pacheco Md Re : Upper GI endoscopy procedure for Susanne Dupree Dear Dr. Pacheco This procedure was performed on Monday, July 01, 2024. My impressions and recommendations are as follows: Impressions : - No gross lesions in the entire esophagus. - Non-bleeding gastric ulcer with no stigmata of bleeding. Biopsied. - No gross lesions in the third portion of the duodenum. Biopsied. Recommendations : - Discharge patient to home. - Resume previous diet. - Continue present medications. - Await pathology results. - Repeat upper endoscopy to check healing. My findings are described in the full procedure note, which is enclosed. If I can be of further assistance, please feel free to contact me at . Sincerely, Jacinto Munoz, 07/01/2024 2:05:15 PM This report has been signed electronically.
--- NOTE | 2024-07-01 14:05 | OP.EGD_ITS ---
Patient Name: Susanne Dupree Procedure Date: 07/01/2024 1:01 PM Date of : 1945 Age: 78 Procedure: Upper GI endoscopy Indications: Epigastric abdominal pain, Iron deficiency anemia Providers: Jacinto Munoz DO Referring MD: April Pacheco Md Medicines: Monitored Anesthesia Care Patient Profile: This is a 78 year old female. Refer to note in patient chart for documentation of history and physical. Patient has symptoms of acute epigastric abdominal pain. Complications: No immediate complications. Procedure: Pre-Anesthesia Assessment: - Prior to the procedure, a History and Physical was performed, and patient medications and allergies were reviewed. The patient is competent. The risks and benefits of the procedure and the sedation options and risks were discussed with the patient. All questions were answered and informed consent was obtained. Patient identification and proposed procedure were verified by the physician in the pre-procedure area. Mental Status Examination: alert and oriented. Airway Examination: normal oropharyngeal airway and neck mobility. Respiratory Examination: clear to auscultation. CV Examination: normal. ASA Grade Assessment: II - A patient with mild systemic disease. After reviewing the risks and benefits, the patient was deemed in satisfactory condition to undergo the procedure. The anesthesia plan was to use monitored anesthesia care (MAC). Immediately prior to administration of medications, the patient was re-assessed for adequacy to receive sedatives. The heart rate, respiratory rate, oxygen saturations, blood pressure, adequacy of pulmonary ventilation, and response to care were monitored throughout the procedure. The physical status of the patient was re-assessed after the procedure. After obtaining informed consent, the endoscope was passed under direct vision. Throughout the procedure, the patient's blood pressure, pulse, and oxygen saturations were monitored continuously. The colonoscope was introduced through the mouth, and advanced to the fourth part of the duodenum. Small bowel enteroscopy was deemed necessary. The upper GI endoscopy was accomplished without difficulty. The patient tolerated the procedure well. Scope In: 1:15:28 PM Scope Out: 1:21:00 PM Total Procedure Duration Time 0 hours 5 minutes 32 seconds Findings: No gross lesions were noted in the entire esophagus. One non-bleeding linear gastric ulcer with no stigmata of bleeding was found in the gastric antrum. The lesion was 5 mm in largest dimension. Biopsies were taken with a cold forceps for histology. Verification of patient identification for the specimen was done. Estimated blood loss was minimal. Biopsies were taken with a cold forceps for Helicobacter pylori testing. Verification of patient identification for the specimen was done. Estimated blood loss was minimal. No gross lesions were noted in the third portion of the duodenum. Biopsies were taken with a cold forceps for histology. Verification of patient identification for the specimen was done. Estimated blood loss was minimal. Impression: - No gross lesions in the entire esophagus. - Non-bleeding gastric ulcer with no stigmata of bleeding. Biopsied. - No gross lesions in the third portion of the duodenum. Biopsied. Recommendation: - Discharge patient to home. - Resume previous diet. - Continue present medications. - Await pathology results. - Repeat upper endoscopy to check healing. Procedure Code(s): --- Professional --- 17495, Small intestinal endoscopy, enteroscopy beyond second portion of duodenum, not including ileum; with biopsy, single or multiple CPT copyright 2021 [employer]. All rights reserved. The codes documented in this report are preliminary and upon registered nurse renal review may be revised to meet current compliance requirements. Jacinto Munoz DO 07/01/2024 2:05:15 PM This report has been signed electronically. Number of Addenda: 0 Note Initiated On: 07/01/2024 1:01 PM
--- NOTE | 2024-07-01 14:06 | PCM.POST.ANE ---
Anesthesia: Postop Eval I Current Vital Signs Temperature: 97.6 F Pulse Rate: 88 Blood Pressure: 110/87 Respiratory Rate: 18 Pulse Ox: 96 Oxygen Delivery Method: Room Air Assessment Airway patent: Yes Spontaneous unlabored respirations: Yes Mental status: Awake and Calm nausea: No Vomiting: No Anesthesia Complication: No Fluid Hydration Crystalloid volume administer (ml): 90 Total IV fluid infused: 90 Progress Note Anesthesia document: Postop Eval 1 completed: Yes
--- NOTE | 2024-07-01 14:08 | OP.COLON_ITS ---
Patient Name: Susanne Dupree Procedure Date: 07/01/2024 1:21 PM Date of : 1945 Age: 78 Procedure: Colonoscopy Indications: Screening for colorectal malignant neoplasm Providers: Jacinto Munoz DO Referring MD: April Pacheco Md Medicines: Monitored Anesthesia Care Patient Profile: This is a 78 year old female. Refer to note in patient chart for documentation of history and physical. Patient has symptoms of acute epigastric abdominal pain. Last Colonoscopy: none. The patient's first colonoscopy is today. Complications: No immediate complications. Procedure: Pre-Anesthesia Assessment: - Prior to the procedure, a History and Physical was performed, and patient medications and allergies were reviewed. The patient is competent. The risks and benefits of the procedure and the sedation options and risks were discussed with the patient. All questions were answered and informed consent was obtained. Patient identification and proposed procedure were verified by the physician in the pre-procedure area. Mental Status Examination: alert and oriented. Airway Examination: normal oropharyngeal airway and neck mobility. Respiratory Examination: clear to auscultation. CV Examination: normal. ASA Grade Assessment: II - A patient with mild systemic disease. After reviewing the risks and benefits, the patient was deemed in satisfactory condition to undergo the procedure. The anesthesia plan was to use monitored anesthesia care (MAC). Immediately prior to administration of medications, the patient was re-assessed for adequacy to receive sedatives. The heart rate, respiratory rate, oxygen saturations, blood pressure, adequacy of pulmonary ventilation, and response to care were monitored throughout the procedure. The physical status of the patient was re-assessed after the procedure. After I obtained informed consent, the scope was passed under direct vision. Throughout the procedure, the patient's blood pressure, pulse, and oxygen saturations were monitored continuously. The colonoscope was introduced through the anus and advanced to the terminal ileum, with identification of the appendiceal orifice and IC valve. The colonoscopy was performed without difficulty. The patient tolerated the procedure well. The quality of the bowel preparation was adequate. The ileocecal valve, appendiceal orifice, and rectum were photographed. Scope In: 1:23:54 PM Scope Withdrawal Time 0 hours 14 minutes 21 seconds Scope Out: 1:53:07 PM Total Procedure Duration Time 0 hours 29 minutes 13 seconds Findings: The perianal and digital rectal examinations were normal. A few small and large-mouthed diverticula were found in the recto-sigmoid colon, sigmoid colon and descending colon. A 20 mm polyp was found in the cecum. The polyp was sessile. The polyp was removed with a hot snare. Resection and retrieval were complete. Verification of patient identification for the specimen was done. To prevent bleeding post-intervention, one hemostatic clip was successfully placed. Clip pin pusher: DiJiPOP. There was no bleeding at the end of the procedure. Impression: - Diverticulosis in the recto-sigmoid colon, in the sigmoid colon and in the descending colon. - One 20 mm polyp in the cecum, removed with a hot snare. Resected and retrieved. Clip was placed. Clip pin pusher: DiJiPOP. Recommendation: - Repeat colonoscopy in 3 years for surveillance. - Continue present medications. Procedure Code(s): --- Professional --- 50551, Colonoscopy, flexible; with removal of tumor(s), polyp(s), or other lesion(s) by snare technique CPT copyright 2021 [employer]. All rights reserved. The codes documented in this report are preliminary and upon mail processor review may be revised to meet current compliance requirements. Jacinto Munoz DO 07/01/2024 2:07:31 PM This report has been signed electronically. Number of Addenda: 0 Note Initiated On: 07/01/2024 1:21 PM
--- NOTE | 2024-07-01 14:08 | OP.CCLET_ITS ---
07/01/2024 April Pacheco Md Re : Colonoscopy procedure for Susanne Dupree Dear Dr. Pacheco This procedure was performed on Monday, July 01, 2024. My impressions and recommendations are as follows: Impressions : - Diverticulosis in the recto-sigmoid colon, in the sigmoid colon and in the descending colon. - One 20 mm polyp in the cecum, removed with a hot snare. Resected and retrieved. Clip was placed. 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 Recommendations : - Repeat colonoscopy in 3 years for surveillance. - Continue present medications. My findings are described in the full procedure note, which is enclosed. If I can be of further assistance, please feel free to contact me at . Sincerely, Jacinto Munoz, 07/01/2024 2:07:31 PM This report has been signed electronically.
--- NOTE | 2024-07-01 19:33 | PCM.POSTANE2 ---
Anesthesia Postop Eval I Sum Postop Eval Completion status Anesthesia document: Postop Eval 1 completed: Yes Anesthesia Postop Eval I Summary Anesthesia Postop Eval I Summary: Anesthesia Postop Eval I: Assessment Summary Airway patent Yes 07/01/24 14:07 [email or web address] Spontaneous unlabored Yes 07/01/24 14:07 [email or web address] respirations Mental status Awake,Calm 07/01/24 14:07 [email or web address] nausea No 07/01/24 14:07 [email or web address] Vomiting No 07/01/24 14:07 [email or web address] Anesthesia Postop Eval I: Fluid Summary Crystalloid volume administer 90 07/01/24 14:07 [email or web address] (ml) Colloids volume administered ( ml) Blood Product volume administered (ml) Total IV fluid infused 90 07/01/24 14:07 [email or web address] Anesthesia Postop Eval I: Summary Notes Anesthesia Complication No 07/01/24 14:07 [email or web address] Anesthesia Complication Comment: Post-operative progress note Anesthesia: Postop Eval II Evaluation Mental status: Awake and Calm Pain Level: 0 nausea: No Vomiting: No Complications Anesthesia Complication: No
== END 2024-07-01 14:50 | disposition home or self-care (01) ==
LOC: EN 11:22 → AC 11:24
PROVIDERS: PCP Internal Medicine; Referring Provider Internal Medicine; Visit Provider Internal Medicine Gastroenterology
PROC: 0DJD8ZZ Inspection of Lower Intestinal Tract, Via Natural or Artificial Opening Endoscopic (ICD-10-PCS; CPT 45378; principal; 2024-07-01 12:25)
DX: K25.9 Gastric ulcer, unspecified as acute or chronic, without hemorrhage or perforation (principal); J44.9 Chronic obstructive pulmonary disease, unspecified; Z79.4 Long term (current) use of insulin; E11.9 Type 2 diabetes mellitus without complications; K57.30 Diverticulosis of large intestine without perforation or abscess without bleeding; E78.00 Pure hypercholesterolemia, unspecified; D50.9 Iron deficiency anemia, unspecified; R10.13 Epigastric pain; Z98.51 Tubal ligation status; Z90.49 Acquired absence of other specified parts of digestive tract; D12.0 Benign neoplasm of cecum
CPT/HCPCS: 45385; 44361; 82962; 88305; A4216; J2405

== ENCOUNTER → 2024-07-22 | Outpatient (REF) | payer MEDICARE, SELFPAY ==
[2024-07-22 08:16] LABS: Hematocrit 35.6 % (37-47); Hemoglobin 11.4 g/dL (12.0-15.0); Mean Corpuscular Hgb 26.6 pg (27.0-32.0); Mean Corpuscular Volume 83.2 fL (81-99); Mean Platelet Vol. 9.2 fl (6.2-12.0); Platelet Count 159 K/mm3 (150-450); RBC Distribution Width CV 18.2 % (11.6-14.6); RBC Distribution Width SD 55.6 fl (35.1-43.9); Red Blood Count 4.28 M/mm3 (4.2-5.4); White Blood Count 6.9 K/mm3 (4.4-11.0)
[2024-07-22 08:39] LABS: Anion Gap 10 (5-15); BUN 20 mg/dL (4-19); BUN/Creat Ratio 16.8 RATIO (10-20); Calcium,Total 9.2 mg/dL (7.6-11.0); Carbon Dioxide 28.7 mmol/L (21.0-32.0); Chloride 102 mmol/L (98-108); Creatinine, Serum 1.19 mg/dL (0.70-1.20); EST Glomerular Filtration Rate 47 (>60); Glucose 82 mg/dL (70-99); Potassium 3.9 mmol/L (3.3-5.1); Sodium Level 141 mmol/L (133-145)
== END ==
LOC: OLS.SW 05:00
PROVIDERS: PCP Internal Medicine; Visit Provider Family Medicine
DX: Z00.00 Encounter for general adult medical examination without abnormal findings (principal); I10 Essential (primary) hypertension
CPT/HCPCS: 36415; 80048; 85027

== ENCOUNTER → 2024-08-13 | Outpatient (CLI) | payer MEDICARE, SELFPAY ==
--- NOTE | 2024-08-13 08:10 | ECHOD_ITS ---
Reason For Study Reason For Study: CHF Procedure This was a 2D Doppler, Color Flow transthoracic echocardiogram. Exam performed in department. Left Ventricle Normal size and thickness. Mild to moderate global left ventricular systolic dysfunction. Estimated LVEF 40-45%. Diastolic dysfunction. Right Ventricle Normal right ventricle. Atria The left atrium is severely enlarged. The right atrium is moderately enlarged. Mitral Valve Mild mitral annular calcification. Moderate (2+) mitral valve insufficiency. Tricuspid Valve Moderate (2+) tricuspid valve insufficiency. Right ventricular systolic pressure estimated to be 62 mmHg. Aortic Valve Moderately calcified aortic valve. Severe aortic valve stenosis with mean peak gradient 40 mmHg. Mild (1+) aortic valve insufficiency. Pulmonic Valve The pulmonic valve is not well visualized. Great Vessels The aortic root is not well visualized. Pericardium/Pleural No pericardial effusion. MMode/2D Measurements & Calculations LVIDd: 5.3 cm IVSd: 1.1 cm LVOT diam: 2.0 cm LVIDs: 4.3 cm LVPWd: 1.1 cm LVOT area: 3.0 cm2 RVDd: 3.1 cm FS: 19.0 % LAV(MOD-bp): 124.6 ml LVAd ap4: 38.8 cm2 SV(MOD-sp4): 91.4 ml LAV(MOD-bp) Indexed: 62.2 ml/m2 LVLd ap4: 8.0 cm SI(MOD-sp4): 45.6 ml/m2 LAV(MOD-sp2): 110.9 ml EDV(MOD-sp4): 153.8 ml LAV(MOD-sp4): 135.2 ml EDV(sp4-el): 160.6 ml LVAs ap4: 22.1 cm2 LVLs ap4: 7.0 cm ESV(MOD-sp4): 62.4 ml ESV(sp4-el): 59.4 ml EF(MOD-sp4): 59.4 % EF(sp4-el): 63.0 % SV(sp4-el): 101.2 ml LA A4 area: 32.7 cm2 LA dimension(2D): 4.6 cm RA A4 area: 24.1 cm2 TAPSE: 1.4 cm Doppler Measurements & Calculations MV E max pool: 107.6 cm/sec Lat Peak E' Pool: 13.7 cm/sec Med Peak E' Pool: 5.3 cm/sec E/E' lat: 7.9 E/E' med: 20.4 Ao V2 max: 409.8 cm/sec AI max pool: 360.9 cm/sec LV V1 max: 82.0 cm/sec Ao max P.3 mmHg AI max P.1 mmHg LV V1 max P.7 mmHg Ao V2 mean: 303.3 cm/sec LV V1 mean P.5 mmHg Ao mean P.0 mmHg AI dec slope: 164.2 cm/sec2 LV V1 mean: 58.2 cm/sec Ao V2 VTI: 91.0 cm AI P1/2t: 643.7 msec LV V1 VTI: 20.2 cm AV (velocity ratio): 0.22 HARMAN(I,D): 0.67 cm2 HARMAN(V,D): 0.60 cm2 SV(LVOT): 60.6 ml PA V2 max: 117.5 cm/sec TR max pool: 345.1 cm/sec PA V2 mean: 65.5 cm/sec TR max P.6 mmHg ECHO/Echo Complete Interpretation Summary Mild to moderate global left ventricular systolic dysfunction. Estimated LVEF 40-45%. Diastolic dysfunction. The left atrium is severely enlarged. The right atrium is moderately enlarged. Moderate (2+) mitral valve insufficiency. Moderate (2+) tricuspid valve insufficiency. Right ventricular systolic pressure estimated to be 62 mmHg. Moderately calcified aortic valve. Severe aortic valve stenosis with mean peak gradient 40 mmHg. Ordering Physician: Henri Pedraza Referring Physician: KIERSTEN MULLEN Performed By: Kate Phan, JSAMIN, RVT
--- NOTE | 2024-08-13 10:41 | STRESSREP_ITS ---
Stress Test Report Date: 08/13/2024 Procedure: Pharmacologic stress nuclear imaging study Indications: Heart failure Consent: Per the patient Procedure: The patient underwent pharmacologic (Regadenoson 0.4mg ) evaluation with a peak heart rate of 113 beats per minute (78%predicted maximal heart rate) and a peak blood pressure of 112/74 mmHg. The baseline ECG demonstrated atrial fibrillation. The peak pharmacologic ECG failed to show any ischemic changes. Occasional PVCs noted. There was no complaint of chest discomfort during pharmacologic infusion or recovery. The patient was injected with 12.3 millicuries of technetium 99m Cardiolite and subsequently rest SPECT Cardiolite nuclear imaging was obtained in the horizontal long, vertical long, and short axis views. The patient underwent pharmacologic (Regadenoson) evaluation. The patient was injected with 37.6 millicuries of technetium 99m Cardiolite and subsequently stress SPECT Card iolite nuclear imaging was obtained in the horizontal long, vertical long, and short axis views. A gated Cardiolite study at peak stress was obtained. The examination was stopped secondary to completion of protocol. Rest and stress SPECT Cardiolite nuclear imaging status post realignment, normalization, and attenuation correction demonstrate mildly reduced perfusion of the apex both at rest as well as post pharmacological stress. Likely attenuation artifact versus physiological thinning. Gated images reveal generalized hypokinesis of the LV. The reported LVEF is 34%. Impression: 1. Pharmacologic (Regadenoson) evaluation 2. Peak pharmacologic ECG with no ischemic changes. 3. Baseline atrial fibrillation. Occasional PVCs noted. 5. No reversible perfusion defects noted. Small fixed apical defect likely suggestive of attenuation artifact versus physiological thinning. 6. The gated Cardiolite study reports an LVEF of 34%. This note was generated with [employer] software. It may contain incorrect words, spelling, and punctuation that were not noted in checking the note before signing.
== END | disposition home or self-care (01) ==
PROVIDERS: PCP Internal Medicine; Referring Provider Internal Medicine Cardiovascular Disease; Visit Provider Internal Medicine Cardiovascular Disease
DX: I50.22 Chronic systolic (congestive) heart failure (principal); I48.91 Unspecified atrial fibrillation
CPT/HCPCS: 78452; 93017; 93306; A9500; A4216; J2785

== ENCOUNTER → 2024-08-19 05:00 | Outpatient (REF) | payer MEDICARE, SELFPAY ==
[2024-08-19 10:03] LABS: Hematocrit 35.6 % (37-47); Hemoglobin 11.6 g/dL (12.0-15.0); Mean Corp Hgb Conc 32.6 g/dL (32-36); Mean Corpuscular Hgb 28.4 pg (27.0-32.0); Mean Platelet Vol. 9.5 fl (6.2-12.0); Platelet Count 180 K/mm3 (150-450); RBC Distribution Width CV 15.9 % (11.6-14.6); RBC Distribution Width SD 50.2 fl (35.1-43.9); Red Blood Count 4.09 M/mm3 (4.2-5.4); White Blood Count 6.4 K/mm3 (4.4-11.0)
[2024-08-19 10:47] LABS: Anion Gap 10 (5-15); BUN 22 mg/dL (4-19); Calcium,Total 9.7 mg/dL (7.6-11.0); Carbon Dioxide 27.5 mmol/L (21.0-32.0); Chloride 100 mmol/L (98-108); Creatinine, Serum 1.15 mg/dL (0.70-1.20); EST Glomerular Filtration Rate 49 (>60); Glucose 101 mg/dL (70-99); Potassium 4.4 mmol/L (3.3-5.1); Sodium Level 138 mmol/L (133-145)
== END ==
LOC: OLS.SW 05:00
PROVIDERS: PCP Internal Medicine; Visit Provider Family Medicine
DX: E11.9 Type 2 diabetes mellitus without complications (principal)
CPT/HCPCS: 36415; 80048; 85027

== ENCOUNTER → 2024-09-16 05:00 | Outpatient (REF) | payer MEDICARE, SELFPAY ==
--- OUTSIDE RECORDS SUMMARY | 2024-09-16 04:07 | XMS RPT_ITS | CCD ---
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 Huan Mcdaniel Primary Care Unavailab le Gio, Thomas Referring Unavailable Gio, Thomas Admitting Unavailable Angelique Clarke Attending UnavailHuan Perez MD Primary Care Provider Huan Mcdaniel MD Unavailable Diana Marcano MA Unavailable Unavailable Huan Mcdaniel MD Unavailable HUAN MCDANIEL Primary Care Unavailable FLAVIO MILES Attending Unavailable HUAN MCDANIEL Primary Care Unavailable ASHELFASHLEY, GHASEM E Admitting Unavailable ASHELFAH, GHASEM E Attending Unavailable RU MILLS Consulting Unavailable HUAN MCDANIEL Primary Care Unavailable ANGELIQUE CLARKE Admitting Unavailab le ANGELIQUE CLARKE Attending Unavailab HUAN Aguilar Primary Care Unavailable MARLEEN SIGALA Referring Unavailable HUAN MCDANIEL Primary Care Unavailable HUAN MCDANIEL Primary Care Unavailable HUAN MCDANIEL Primary Care Unavailable SKINNY STEEL Referring Unavailable HUAN MCDANIEL Primary Care Unavailable RU ORTEGA Admitting Unavailable SAI MARIE Attending Unavailable BRAULIO ONEIL Attending Unavailable HUAN MCDANIEL Primary Care Unavailable Mukul REHMAN, Huan Patton Primary Care Provider Huan Mcdaniel MD Unavailable [phone] Lim OLS, Dominic Primary Care Provider Unavaila ble Lim OLS, Dominic Attending Provider Unavailable Limraya LUCERO, Dominic Referring Provider Unavailable Percy CAMPOS, Dr. Cruz Attending Provider Percy CAMPOS, Dr. Cruz Emergency Provider Junior REHMAN, Dr. Chen Primary Care Provider Unabradly Mullen MD, Dr. Chen Attending Provider Unavailmaria luisa Mullen MD, Dr. Chen Referring Provider Unavaila Chrissie Gusman Attending Provider Prem REHMAN, Dr. Natarajan Attending Provider Unavail iesha Amaro MD, Dr. Natarajan Referring Provider Unavail able Junior REHMAN, Dr. Chen Referring Provider Unavaila ble Dominic Strickland Primary Care Provider Unavaila ble Carina LUCERO, Dominic Attending Provider Unavailable Carina LUCERO, Dominic Referring Provider Unavailable Percy CAMPOS, Dr. Cruz Attending Provider Percy CAMPOS, Dr. Cruz Emergency Provider Junior REHMAN, Dr. Chen Primary Care Provider Maryam Mullen MD, Dr. Chen Attending Provider Unavailmaria luisa Mullen MD, Dr. Chen Referring Provider Unavaila liyah PIZARROC, Chrissie Attending Provider Prem REHMAN, Dr. Natarajan Attending Provider Unavail iesha Amaro MD, Dr. Natarajan Referring Provider Unavail iesha Mullen MD, Dr. Chen Referring Provider Unavaila liyah Munoz DO, Dr. Casey Attending Provider Alexander CAMPOS, Dr. Casey Other Provider MARLEEN SIGALA Attending Unavailable HUAN MCDANIEL Primary Care Unavailable HUAN MCDANIEL Attending Unavailable HUAN MCDANIEL Referring Unavailable HUAN MCDANIEL Primary Care Unavailable MILKS, ELIZA A Attending Unavailable HUAN MCDANIEL Primary Care Unavailable MEGAN OSORIO Attending Unavailable HUAN MCDANIEL Primary Care Unavailable Junior REHMAN, Dr. Chen Primary Care Provider Unava jasvir Mullen MD, Dr. Chen Attending Provider Unavaila liyah Pedraza MD, Dr. Álvarez Attending Provider [phone] Mandy Simms Attending Provider Milo REHMAN, Dr. Álvarez Referring Provider Milo REHMAN, Dr. Álvarez Other Provider Carina LUCERO, Dominic Attending Unavailable Lim NIC, Dominic Attending Unavailable Lim NIC, Dominic Primary Care Unavailable Lim NIC, Dominic Attending Unavailable Lim NIC, Dominic Attending Unavailable Jerman Zavala Attending Unavailable Lim, Dominic Primary Care Unavailable Gudla, April Referring Unavailable Gudla, April Primary Care Unavailable Friend, Jacinto Consulting Unavailable Friend, Jacinto Attending Unavailable Gudla, April Primary Care Unavailable MiloHenri Consulting Unavailable Milo, Henri Attending Unavailable Henri Pedraza Referring Unavailable Waqar Berman Consulting Unavailable Waqar Berman Admitting Unavailable Seun Rollins Attending Unavailable Lim, Dominic Primary Care Unavailable Jessee Lucas Consulting Unavailable Ever Last Consulting Unavailable Ayo Seun Consulting Unavailable Gudla, April Primary Care Unavailable Friend, Jacinto Attending Unavailable Ever Last Attending Unavailable Waqar Berman Attending Unavailable Dominic Strickland Attending Unavailable Lim, Dominic Primary Care Unavailable Lim NIC, Dominic Attending Unavailable Lim, Dominic Primary Care Unavailable Gudla, April Primary Care Unavailable Delgado Gillette Attending Unavailable Delgado Gillette Referring Unavailable Gudla, April Primary Care Unavailable Gudla April LUCERO Attending Unavailable Gudla NIC, April Attending Unavailable Gudla OLS, April Referring Unavailable Gudla, April Primary Care Unavailable Lim NIC, Dominic Attending Unavailable Lim NIC, Dominic Referring Unavailable Lim NIC, Dominic Attending Unavailable Lim, Dominic Primary Care Unavailable Gudla April LUCERO Attending Unavailable Lim, Dominic Primary Care Unavailable Gudla OLS, April Attending Unavailable Lim, Dominic Primary Care Unavailable Lim, Dominic Attending Unavailable Lim, Dominic Primary Care Unavailable Lim NIC, Dominic Attending Unavailable Lim NIC, Dominic Primary Care Unavailable Lim NIC, Dominic Referring Unavailable Lim NIC, Dominic Attending Unavailable Lim NIC, Dominic Primary Care Unavailable Lim NIC, Dominic Referring Unavailable Lim NIC, Dominic Attending Unavailable Lim, Dominic Primary Care Unavailable Gudla, April Primary Care Unavailable Anthony Greer Attending Unavailable Gudla, April Primary Care Unavailable MiloHenri Attending Unavailable Milo, Henri Referring Unavailable Lim NIC, Dominic Attending Unavailable Lim, Dominic Primary Care Unavailable Gudla NIC, April Attending Unavailable Lim, Dominic Primary Care Unavailable Lim NIC, Dominic Attending Unavailable Lim, Dominic Primary Care Unavailable Gudla April LUCERO Attending Unavailable Lim, Dominic Primary Care Unavailable Gudla April LUCERO Attending Unavailable Gudla, April Primary Care Unavailable Gudla April LUCERO Attending Unavailable Gudla, April Primary Care Unavailable Gudla, April Primary Care Unavailable Gudla April LUCERO Attending Unavailable Gudla, April Primary Care Unavailable Delgado Gillette Attending Unavailable Gudla, April Primary Care Unavailable Delgado Gillette Attending Unavailable Lim NIC, Dominic Attending Unavailable Chrissie Meza Attending Unavailable Gudla, April Referring Unavailable Gudla, April Primary Care Unavailable Gudla, April Referring Unavailable Gudla, April Primary Care Unavailable MiloHenri Attending Unavailable Gudla, April Referring Unavailable Gudla, April Primary Care Unavailable Mandy Mcallister Attending Unavailable Lim NIC, Dominic Attending Unavailable Waqar Berman Consulting Unavailable Waqar Berman Admitting Unavailable Seun Rollins Attending Unavailable Carina, Dominic Primary Care Unavailable Jessee Lucas Consulting Unavailable Ever Last Consulting Unavailable Lim NIC, Dominic Attending Unavailable Natalie Espinal Attending Unavailabl e LimDominic dos santos Primary Care Unavailable Lim NIC, Dominic Attending Unavailable Lim NIC, Dominic Referring Unavailable Lim NIC, Dominic Attending Unavailable Gudla April LUCERO Attending Unavailable Delgado Gillette Attending Unavailable Delgado Gillette Referring Unavailable Gudla, April Primary Care Unavailable Delgado Gillette Attending [facility]available [facility] Unavailable April Mullen Referring Unavailable Friend, Jacinto Attending Unavailable [facility] Primary Care Unavailable [facility] Primary Care Unavailable [facility] April LUCERO Attending Unavailable Allergies Allergy Classification Reported Allergen(s) Allergy Type Date of Onset Reaction(s) Facility venlafaxine (7 sources) venlafaxine; Translations: [Effexor] Drug Allergy Edema -[facility] Work Phone: (20 sources) venlafaxine; Translations: [Effexor] Drug Allergy Edema -[facility] Work Phone: (5 sources) venlafaxine; Translations: [VENLAFAXINE] Drug Allergy 08-30-2022 [facility] Medications Current Medications Medication Drug Class(es) Dates Sig (Normalized) Sig (Original) acetaminophen 325 mg oral tablet (20 sources) Start: 06-30-2024 take 1-0.5 tablets by mouth every four hours as needed for pain Acetaminophen 325 mg Tablet Active 650 mg PO Q4H as needed for Pain 1-5/10 Or Fever>100.7 June 30, 2024 12:00am Start: 01-08-2024 End: 06-30-2024 take 1-0.5 tablets by mouth every six hours as needed for pain Acetaminophen 325 mg Tablet Discontinued 650 mg PO EVERY 6 HOURS NEEDED as needed for Pain 1-5/10 Or Fever>100.7 0 January 08, 2024 12:00am June 30, 2024 11:16am Start: 11-19-2023 take 2 tablets by mo [facility] every six hours for pain acetaminophen (Tylenol) 325 mg tablet Indications: Discitis, unspecified, thoracic region , Intractable back pain Take 2 tablets (650 mg) by mouth every 6 hours if needed for mild pain (1 - 3). 11/19/2023 Active Start: 11-09-2023 End: 11-17-2023 take 2 tablets by mouth every six hours for pain acetaminophen (Tylenol) 325 mg tablet Indications: Discitis, unspecified, thoracic region , Intractable back pain Take 2 tablets (650 mg) by mouth every 6 hours if needed for mild pain (1 - 3). 11/19/2023 Active Start: 10-10-2023 take 1 tablet by ofelia th every six hours as needed 650 mg, oral, Every 6 hours PRN, pain mild (1-3), first line, pain moderate (4-6), first line, headaches, fever (temp greater than 38.0 C), Starting on Sun10/10/23 at 0522, If ordered PRN for pain, nurse is permitted to administer this medication for higher pain scores based on patient preference? Yes [id number] 200 actuat albuterol 0.09 mg/actuat metered dose inhaler (20 sources) beta2-Adrenergic Agonist Start: 06-30-2024 Albut aydee Sulfate 90 mcg/actuation HFA aerosol inhaler Active 2 NMA INHALATION EVERY 6 HOURS as needed for shortness of breath or wheezing June 30, 2024 12:00am Start: 04-28-2024 End: 06-10-2024 Albuterol Sulfate 90 mcg/act uation aerosol powdr breath activated Discontinued 1 NMA INHALATION EVERY 4-6 HOURS as needed April 28, 2024 1:00am June 10, 2024 12:30pm Start: 09-01-2021 take 2 puff(s) by in halation every four hours as needed Albuterol Sulfate HFA 108 (90 Base) MCG/ACT Inhalation Aerosol Solution INHALE 2 PUFFS EVERY 4 HOURS NEEDED Quantity: 3 Refills: 1 Ordered: 26-Sep-2021 Huan Mcdaniel MD Start : 01-Sep-2021 Active whatever brand or generic covered. albuterol 0.833 mg/ml / ipratropium bromide 0.167 mg/ml inhalation solution (6 sources) Anticholinergic, beta2-Adrenergic Agonist Start: 11-19-2023 take 3 mL by inhalation every six hours as needed for dyspnea and dyspnea ipratropium-albuteroL (Duo-Neb) 0.5-2.5 mg/3 mL nebulizer solution Indications: Shortness of breath Take 3 mL by nebulization every 6 hours if needed for wheezing or shortness of breath. 11/19/2023 Active Start: 11-09-2023 take 3 mL by inhalat ion every six hours as needed for dyspnea and dyspnea alteplase (Cathflo Activase) 2 mg injection (4 sources) Start: 11-19-2023 End: 02-28-2024 alteplase (Cathflo Activase) 2 mg injection Indications: Discitis, unspecified, thoracic region 2 mL (2 mg) by intra-catheter route if needed (line care). 11/19/2023 02/28/2024 Discontinued (Med List Cleanup) Start: 11-19-2023 alteplase (Cat hflo Activase) 2 mg injection Indications: Discitis, unspecified, thoracic region 2 mL (2 mg) by intra-catheter route if needed (line care). 11/19/2023 Active amoxicillin 875 mg / clavulanate 125 mg oral tablet (2 sources) Penicillin-class Antibacterial Start: 04-11-2021 End: 04-21-2021 take 1 tablet by mouth twice daily Amoxicillin-Pot Clavulanate 875-125 MG Oral Tablet Take 1 tablet twice daily Quantity: 10 Refills: 1 Ordered: 11-Apr-2021 Huan Mcdaniel MD Start : 11-Apr-2021 End : 21-Apr-2021 Active Start: 07-29-2019 End: 08-13-2019 take 1 tablet by mouth twice daily Amoxicillin-Pot Clavulanate 875-125 MG Oral Tablet Take 1 tablet twice daily Quantity: 14 Refills: 1 Huan Mcdaniel Start : 29-Jul-2019 End : 12-Aug-2019 Active apixaban 5 mg oral tablet (2 sources) Factor Xa Inhibitor Start: 07-23-2024 take 1 tablet by mouth twice daily Apixaban (Eliquis) 5 mg tablet Active 5 mg PO TWICE A DAY July 23, 2024 12:00am ascorbic acid 500 mg oral tablet (7 sources) Vitamin C Start: 01-08-2024 take 1 tablet by mouth twice daily at mealtime Ascorbic Acid (Vitamin C) 500 mg Tablet Active 500 mg PO TWICE DAILY WITH MEALS January 08, 2024 12:00am atenolol 50 mg oral tablet (20 sources) beta-Adrenergic Nancy Start: 11-09-2023 Start: 10-15-2023 End: 02-28-2024 take 0.5 tablet by mouth twice daily atenolol (Tenormin) 100 mg tablet Indications: Benign essential hypertension Take 0.5 tablets (50 mg) by mouth 2 times a day. 10/15/2023 02/28/2024 Discontinued (Med List Cleanup) Start: 10-10-2023 take 100 mg by mouth once lakhwinder y 100 mg, oral, Daily, First dose on Sun10/10/23 at 0900 Start: 03-13-2023 End: 05-20-2024 take 1 tablet by mouth once daily atenolol (Tenormin) 100 mg tablet Indications: Benign essential hypertension Take 1 tablet (100 mg) by mouth once daily. 90 tablet 3 05/21/2023 10/15/2023 Discontinued Start: 02-03-2019 End: 03-13-2023 take 1 tablet by mouth twice daily atenolol (Tenormin) 100 mg tablet Take 1 tablet (100 mg) by mouth twice a day. 0 02/03/2019 03/13/2023 Discontinued (Reorder) Start: 02-03-2019 take 0.5 tablet by m outh twice daily Atenolol 100 MG Oral Tablet TAKE 0.5 TABLET Twice daily Quantity: 90 Refills: 3 Ordered: 07-Mar-2022 Huan Mcdaniel MD Start : 03-Feb-2019 Active atorvastatin 20 mg oral tablet (2 sources) HMG-CoA Reductase Inhibitor End: 12-12-2022 take 1 tablet by mouth once daily at bedtime atorvastatin (Lipitor) 20 mg tablet Take 1 tablet (20 mg) by mouth once daily at bedtime. 0 12/12/2022 Discontinued (Therapy completed) busPIRone hydrochloride 5 mg oral tablet (7 sources) Start: 03-28-2024 take 1 tablet by mouth twice daily Buspirone 5 mg tablet Active 5 mg PO TWICE A DAY March 28, 2024 1:00am carvedilol 3.125 mg oral tablet (10 sources) alpha-Adrenergic Nancy, beta-Adrenergic Nancy Start: 07-31-2024 take 1 tablet by mouth twice daily Carvedilol 3.125 mg tablet Active 3.125 mg PO TWICE A DAY July 31, 2024 3:29pm Start: 01-08-2024 End: 07-23-2024 take 1 tablet by mouth twice daily Carvedilol 3.125 mg Tablet Discontinued 3.125 mg PO TWICE A DAY January 08, 2024 12:00am July 23, 2024 11:15am cholecalciferol 0.025 mg oral capsule (20 sources) Vitamin D Start: 12-31-2023 take 1 capsule by mouth once daily Cholecalciferol (Vitamin D3) 25 mcg (1,000 unit) capsule Active 25 ug PO DAILY December 31, 2023 12:00am Start: 11-09-2023 Start: 05-22-2023 End: 05-21-2024 take 2 tablets by mouth once daily cholecalciferol (Vitamin D-3) 25 MCG (1000 UT) tablet Indications: Vitamin D deficiency Take 2 tablets (2,000 Units) by mouth once daily. 180 tablet 3 05/22/2023 05/21/2024 Active Start: 05-22-2023 End: 05-21-2024 take 2000 [IU] by mouth once daily 2,000 Units, oral, Daily, First dose on Sun10/10/23 at 0900 Start: 12-12-2022 End: 12-12-2023 take 1 tablet by mouth once daily cholecalciferol (Vitamin D-3) 25 MCG (1000 UT) tablet Take 1 tablet (25 mcg) by mouth once daily. 90 tablet 3 12/12/2022 12/12/2023 Active Start: 02-03-2019 End: 12-12-2022 take 1 tablet by mouth every week cholecalciferol (Vitamin D-3) 25 MCG (1000 UT) tablet Take by mouth per week. 0 02/03/2019 12/12/2022 Discontinued (Dose adjustment) cyclobenzaprine hydrochloride 10 mg oral tablet (20 sources) Muscle Relaxant Start: 06-10-2024 take 5 mg by mouth three times daily Cyclobenzaprine 10 mg tablet Active 5 mg PO THREE TIMES A DAY June 10, 2024 1:00am Start: 06-10-2024 take 1 tablet by ofelia once daily Cyclobenzaprine 10 mg tablet Active 10 mg PO daily June 10, 2024 12:00am Start: 02-06-2024 cyclobenzaprin e (Flexeril) 10 mg tablet 02/06/2024 Active Start: 12-31-2023 End: 04-28-2024 take 1 tablet by mouth every eight hours Cyclobenzaprine 5 mg tablet Discontinued 5 mg PO Q8H December 31, 2023 12:00am April 28, 2024 12:49pm Start: 11-14-2023 End: 02-28-2024 take 1 tablet by mouth three times daily cyclobenzaprine (Flexeril) 5 mg tablet Indications: Discitis, unspecified, thoracic region , Intractable back pain Take 1 tablet (5 mg) by mouth 3 times a day. 11/19/2023 Active dapagliflozin 5 mg oral tablet (8 sources) Sodium-Glucose Cotransporter 2 Inhibitor Start: 03-28-2024 take 1 tablet by mouth once daily Dapagliflozin Propanediol (Dapagliflozin Propanediol 5 Mg Tablet) 5 mg tablet Active 5 mg PO DAILY March 28, 2024 1:00am Start: 02-26-2024 Farxiga 5 mg 1 04/27/2023 Active diphenhydrAMINE hydrochloride 25 mg oral capsule (1 source) Histamine-1 Receptor Antagonist Start: 10-14-2023 take 25 mg by mouth once daily 25 mg, oral, Nightly, First dose on Sun10/14/23 at 2100 docusate sodium 50 mg / sennosides, care home 8.6 mg oral tablet (1 source) Start: 10-10-2023 take 2 tablets by mouth twice daily for constipation 2 tablet, oral, 2 times daily, First dose on Sun10/10/23 at 0900, Bowel Regimen - for prevention of constipation Hold for loose stools 0.5 ml dulaglutide 3 mg/ml auto-injector (8 sources) GLP-1 Receptor Agonist Start: 08-26-2023 dulaglutide (Trulicity) 1.5 mg/0.5 mL pen injector injection 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 2 mL 09/02/2023 Active 0.4 ml enoxaparin sodium 100 mg/ml prefilled syringe (7 sources) Low Molecular Weight Heparin Start: 11-10-2023 End: 02-28-2024 inject 0.4 mL by subcutaneous injection every twenty-four hours enoxaparin (Lovenox) 40 mg/0.4 mL syringe Indications: deep vein thrombosis prevention Inject 0.4 mL (40 mg) under the skin once every 24 hours. 11/19/2023 Active escitalopram 10 mg oral tablet (6 sources) Serotonin Reuptake Inhibitor Start: 06-30-2024 Escitalopram Oxalate (Lexapro) 10 mg tablet Active 15 mg PO DAILY June 30, 2024 12:00am ferrous sulfate 325 mg oral tablet (8 sources) Start: 04-28-2024 take 1 tablet by mouth once daily Ferrous Sulfate 325 mg (65 mg iron) tablet Active 325 mg PO daily April 28, 2024 1:00am Start: 09-14-2022 End: 10-13-2022 take 1 tablet by mouth twice daily ferrous sulfate 325 (65 Fe) MG tablet Take 1 tablet (65 mg of iron) by mouth twice a day. 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 11/19/2023 Active Start: 10-10-2023 guaiFENesin 400 mg oral tablet (6 sources) Start: 06-30-2024 take 1 tablet by mouth every four hours as needed for cough Guaifenesin 400 mg tablet Active 400 mg PO Q4H as needed for cough June 30, 2024 12:00am 1 ml HYDROmorphone hydrochloride 1 mg/ml cartridge (7 sources) Opioid Agonist Start: 11-19-2023 End: 02-28-2024 HYDROmorphone (Dilaudid) 1 mg/mL injection Indications: Discitis, unspecified, thoracic region , Intractable back pain Infuse 0.2 mL (0.2 mg) into a venous catheter every 3 hours if needed for other (breakthrough pain). 11/19/2023 02/28/2024 Discontinued (Med List Cleanup) Start: 11-14-2023 End: 11-14-2023 Start: 11-14-2023 3 ml insulin glargine 100 unt/ml pen injector (6 sources) Insulin Analog Start: 06-30-2024 Insulin Glargi ne (Lantus Solostar U-100 Insulin) 100 unit/mL (3 mL) insulin pen Active 8 U SC DAILY June 30, 2024 12:00am 3 ml insulin lispro 100 unt/ml pen injector (15 sources) Insulin Analog Start: 02-05-2024 Admelog SoloSt ar U-100 Insulin 100 unit/mL injection 02/05/2024 Active Start: 12-31-2023 Insulin Lispro (Humalog Kwikpen Insulin) 100 unit/mL insulin pen Active 0 U SC .TIDCM&HS December 31, 2023 12:00am TID with meals and at HS Please contact the information source for Protocol details. 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 Take as directed per insulin instructions. 11/19/2023 Active Start: 11-10-2023 Start: 10-10-2023 0-10 Units, jovel bcutaneous, 3 times daily (morning, midday, late afternoon), First dose on Sun10/10/23 at 0800, Do not hold when patient is not eating, continue order as scheduled for hyperglycemia management. Insulin Lispro Corrective Scale #2 Hypoglycemia protocol Call LIP unit(s) if Blood Glucose is between 0 - 70 mg/dL 0 unit(s) if Blood glucose is between 71-150 2 unit(s) if Blood glucose is between 151-200 4 unit(s) if Blood glucose is between 201-250 6 unit(s) if Blood glucose is between 251-300 8 unit(s) if Blood glucose is between 301-350 10 unit(s) if Blood glucose is between 351-400 Notify provider unit(s) if Blood Glucose is greater than 400 mg/dL lisinopril 2.5 mg oral tablet (20 sources) Angiotensin Converting Enzyme Inhibitor Start: 01-08-2024 take 1 tablet by mouth once daily Lisinopril 2.5 mg Tablet Active 2.5 mg PO DAILY January 08, 2024 12:00am Start: 02-03-2019 End: 05-20-2024 magnesium hydroxide 240 mg/ml oral suspension (1 source) Start: 10-10-2023 take 10 mL by mouth every twenty-four hours as needed magnesium oxide 400 mg oral tablet (12 sources) Start: 10-10-2023 take 200 mg by mouth once daily 200 mg, oral, Daily, First dose on Sun10/10/23 at 0900 End: 11-20-2023 melatonin 3 mg oral tablet (7 sources) Start: 01-08-2024 take 2 tablets by mouth at bedtime Melatonin 3 mg Tablet Active 6 mg PO AT BEDTIME January 08, 2024 12:00am multivit-minerals/folic acid (ADULT MULTIVITAMIN GUMMIES ORAL) (3 sources) take 1 dose by mouth once daily multivit-minerals/folic acid (ADULT MULTIVITAMIN GUMMIES ORAL) Take 1 each by mouth once daily. Active Multivitamin (Daily Multi-Vitamin) tablet (7 sources) Start: 12-31-2023 Multivitamin ( Daily Multi-Vitamin) tablet Active 1 {tbl} PO DAILY December 31, 2023 12:00am Start: 12-31-2023 Multivitamin ( Daily Multi-Vitamin) tablet Active 1 {tbl} PO DAILY December 30, 2023 11:00pm nystatin 100 unt/mg topical powder (13 sources) Polyene Antifungal Start: 11-19-2023 End: 02-28-2024 Nystatin 100,000 unit/gram powder Active 1 NMA TOPICAL TWICE A DAY as needed for skin irritation December 31, 2023 12:00am Start: 11-15-2023 2 ml ondansetron 2 mg/ml injection (2 sources) Serotonin-3 Receptor Antagonist Start: 10-10-2023 take 4 mg intravenously every six hours as needed Start: 10-10-2023 End: 10-10-2023 4 mg, intravenous, Once, On Sun10/10/23 at 0405, For 1 dose, When administering via IV Push, administer over 3-5 minutes. oxyCODONE hydrochloride 10 mg oral tablet (13 sources) Opioid Agonist Start: 11-19-2023 End: 02-28-2024 take 1 tablet by mouth every four hours for pain oxyCODONE (Roxicodone) 10 mg immediate release tablet Indications: Discitis, unspecified, thoracic region , Intractable back pain Take 1 tablet (10 mg) by mouth every 4 hours if needed for severe pain (7 - 10). 11/19/2023 02/28/2024 Discontinued (Med List Cleanup) Start: 11-14-2023 take 1 tablet by ofelia th every four hours as needed Start: 11-09-2023 End: 02-28-2024 take 1 tablet by mouth every four hours for pain oxyCODONE (Roxicodone) 5 mg immediate release tablet Indications: Discitis, unspecified, thoracic region , Intractable back pain Take 1 tablet (5 mg) by mouth every 4 hours if needed for moderate pain (4 - 6). 11/19/2023 Active oxygen (O2) therapy (1 source) Start: 10-10-2023 inhalation, Continuous - Inhalation, First dose on Sun10/10/23 at 0500, Device: Nasal Cannula, Rate in liters per minute: 2 LPM, Keep O2 Sat Above: 92% pantoprazole 40 mg delayed release oral tablet (7 sources) Proton Pump Inhibitor Start: 04-28-2024 take 1 tablet by mouth once daily Pantoprazole 40 mg tablet,delayed release (DR/EC) Active 40 mg PO daily 90 April 28, 2024 1:00am phenazopyridine hydrochloride 200 mg oral tablet (1 source) Start: 10-10-2023 take 200 mg by mouth three times daily 200 mg, oral, 3 times daily (morning, midday, late afternoon), First dose (after last modification) on Sun10/10/23 at 0930, August discolor urine (orange). polyethylene glycol 3350 88816 mg powder for oral solution (20 sources) Osmotic Laxative Start: 06-30-2024 Polyethylene Glycol 3350 (Miralax) 17 gram/dose powder Active 17 g PO EVERY OTHER DAY June 30, 2024 12:00am Start: 12-31-2023 End: 07-23-2024 take 17 g by mouth twice daily as needed for constipation Polyethylene Glycol 3350 17 gram/dose powder Discontinued 17 g PO TWICE A DAY as needed for constipation December 31, 2023 12:00am July 23, 2024 11:13am Start: 11-11-2023 polyethylene g lycol (Glycolax, Miralax) 17 gram packet Indications: Discitis, unspecified, thoracic region Take 34 g by mouth 2 times a day. 11/19/2023 Active Start: 11-09-2023 End: 11-11-2023 Start: 10-10-2023 17 g, oral, Da harshil, First dose on Sun10/10/23 at 0900 microencapsulated potassium chloride 20 meq extended release oral tablet (20 sources) Start: 02-05-2024 potassium chlo ride CR 20 mEq ER tablet 02/05/2024 Active Start: 12-31-2023 take 2 capsules by mouth once daily Potassium Chloride 10 mEq capsule, extended release Active 20 meq PO DAILY December 31, 2023 12:00am Start: 11-17-2023 End: 11-17-2023 Start: 11-16-2023 End: 11-16-2023 Start: 11-11-2023 End: 11-11-2023 take 20 mEq intravenously every two hours Start: 11-11-2023 End: 11-11-2023 Start: 10-12-2023 End: 10-12-2023 40 mEq, oral, Once, On Sun10/12/23 at 0730, For 1 dose, Best given with food and plenty of water to minimize gastric irritation. Do not crush or chew. Start: 09-15-2021 End: 05-20-2024 rosuvastatin calcium 10 mg oral tablet (20 sources) HMG-CoA Reductase Inhibitor Start: 10-10-2023 take 10 mg by mouth once daily 10 mg, oral, Nightly, First dose on Sun10/10/23 at 2100 Start: 06-09-2021 End: 05-20-2024 take 1 tablet by mouth once daily at bedtime rosuvastatin (Crestor) 10 mg tablet Indications: Mixed hyperlipidemia Take 1 tablet (10 mg) by mouth once daily at bedtime. 10/15/2023 Active Sennosides 8.6 mg tablet (7 sources) Start: 12-31-2023 take 2 tablets by mouth twice daily as needed for constipation Sennosides 8.6 mg tablet Active 17.2 mg PO TWICE A DAY as needed for constipation December 31, 2023 12:00am Start: 12-31-2023 take 2 tablets by mo [facility] twice daily Sennosides 8.6 mg tablet Active 17.2 mg PO TWICE A DAY December 30, 2023 11:00pm sennosides, care home 8.6 mg oral tablet (6 sources) Start: 11-11-2023 take 2 tablets by mouth twice daily sennosides (Senokot) 8.6 mg tablet Indications: Discitis, unspecified, thoracic region Take 2 tablets (17.2 mg) by mouth 2 times a day. 11/19/2023 Active 24 hr venlafaxine 75 mg extended release oral capsule (20 sources) Serotonin and Norepinephrine Reuptake Inhibitor Start: 02-05-2024 venlafaxine XR (Effexor-XR) 75 mg 24 hr capsule 02/05/2024 Active Start: 11-20-2023 End: 02-28-2024 venlafaxine XR (Effexor-XR) 37.5 mg 24 hr capsule Indications: Depression, major, single episode, moderate (Multi) Take 3 capsules (112.5 mg) by mouth once daily. Do not crush or chew. Do not fill before November 20, 2023. 11/20/2023 02/28/2024 Discontinued (Med List Cleanup) Start: 10-10-2023 take 1 capsule by mo uth once daily 75 mg, oral, Daily, First dose on Sun10/10/23 at 0900, Capsule may be swallowed whole, or may be opened and its contents sprinkled on applesauce if consumed immediately without chewing. Do not crush or chew. Start: 06-16-2022 End: 05-20-2024 take 1 capsule by mouth once daily Venlafaxine 75 mg capsule,extended release 24hr Active 150 mg PO DAILY December 31, 2023 12:00am Start: 07-08-2020 take 1 tablet by ofelia once daily Venlafaxine HCl ER 75 MG Oral Tablet Extended Release 24 Hour Take 1 tablet daily Quantity: 30 Refills: 9 Ordered: 13-Oct-2020 Huan Mcdaniel MD Start : 08-Jul-2020 Active take 1 capsule by mo [facility] once daily Venlafaxine HCl ER 75 MG Oral Capsule Extended Release 24 Hour TAKE 1 CAPSULE Daily Quantity: 90 Refills: 1 Ordered: 28-Mar-2022 Huan Mcdaniel MD Active (2 sources) Start: 11-19-2023 Start: 11-16-2023 (2 sources) Start: 11-20-2023 Start: 11-17-2023 End: 11-17-2023 Completed/Discontinued Medications Medication Drug Class(es) Dates Sig (Normalized) Sig (Original) aspirin 325 mg oral tablet (7 sources) Platelet Aggregation Inhibitor, Nonsteroidal Anti-inflammatory Drug Start: 04-28-2024 End: 07-23-2024 take 1 tablet by mouth once daily Aspirin 325 mg tablet Discontinued 325 mg PO daily April 28, 2024 1:00am July 23, 2024 3:48pm baclofen 10 mg oral tablet (2 sources) gamma-Aminobutyric Acid-ergic Agonist Start: 10-30-2023 End: 11-20-2023 Start: 10-10-2023 take 10 mg by mouth three times daily as needed for muscle spasms 10 mg, oral, 3 times daily PRN, muscle spasms, Starting on Sun10/10/23 at 0813 calcium chloride 0.0014 meq/ml / potassium chloride 0.004 meq/ml / sodium chloride 0.103 meq/ml / sodium lactate 0.028 meq/ml injectable solution (1 source) Start: 11-14-2023 End: 11-16-2023 cefTRIAXone 2000 mg injection (20 sources) Cephalosporin Antibacterial Start: 01-04-2024 End: 04-28-2024 take 2 g intravenously every twelve hours Ceftriaxone 2 gram recon soln Discontinued 2 g IV Q12H January 04, 2024 12:00am April 28, 2024 11:53am Stop date 01/15/24. Dx: spine osteomyelitis. Weekly bmp, cbc, vanc trough and esr. Routine picc care per protocol. Primary doctor is Dr. Megan Osorio. Start: 12-31-2023 End: 01-04-2024 take 2 g intravenously twice daily Ceftriaxone 2 gram recon soln Discontinued 2 g IV TWICE A DAY December 31, 2023 12:00am January 04, 2024 12:08pm end date 01/12/24 Start: 11-16-2023 End: 01-11-2024 take 2 g intravenously every twelve hours cefTRIAXone (Rocephin) 2 gram/50 mL IV Indications: Osteomyelitis/Septic Arthritis Infuse 50 mL (2 g) at 100 mL/hr over 30 minutes into a venous catheter every 12 hours. 11/19/2023 12/27/2023 Discontinued (Reorder) Start: 10-10-2023 End: 10-13-2023 1 g, intravenous, at 100 mL/ hr, Administer over 30 Minutes, Every 24 hours, First dose on Sun10/11/23 at 0500, premix bag, Suspected Indication (Select all that apply): Urinary Tract Infection, Type of Therapy: Empiric, Type of Urinary Tract Infection: Uncomplicated, Indications: Urinary Tract Infection cephalexin 500 mg oral capsule (11 sources) Cephalosporin Antibacterial Start: 03-28-2024 End: 04-28-2024 take 1 capsule by mouth three times daily Cephalexin 500 mg capsule Discontinued 500 mg PO THREE TIMES A DAY March 28, 2024 1:00am April 28, 2024 12:48pm Start: 10-13-2023 End: 10-14-2023 take 500 mg by mouth every twelve hours 500 mg, oral, Every 12 hours scheduled, First dose on 10/13/23 at 1145, For 2 days, Suspected Indication (Select all that apply): Urinary Tract Infection, Type of Therapy: Definitive, Based on Culture, Type of Urinary Tract Infection: Complicated, Indications: Urinary Tract Infection Start: 07-16-2023 End: 08-02-2023 take 1 capsule by mouth four times daily cephalexin (Keflex) 250 mg capsule Indications: Cellulitis of lower extremity, unspecified laterality Take 1 capsule (250 mg) by mouth 4 times a day for 10 days. 40 capsule 07/16/2023 08/02/2023 Discontinued (Therapy completed) Start: 05-16-2019 End: 07-21-2019 take 1 capsule by mouth four times daily Cephalexin 500 MG Oral Capsule TAKE 1 CAPSULE 4 TIMES DAILY. Quantity: 40 Refills: 0 Huan Mcdaniel Start : 16-May-2019 End : 20-Jul-2019 Active cinnamon bark 500 mg oral ca psule (20 sources) Start: 02-03-2019 End: 11-20-2023 Start: 02-03-2019 take 2 capsules by m outh twice daily Cinnamon 500 MG Oral Capsule TAKE 2 CAPSULE Twice daily Quantity: 0 Refills: 0 Ordered: 03-Feb-2019 DO Start : 03-Feb-2019 Active CoQ10 CAPS (4 sources) CoQ10 CAPS TAKE 1 CAPSULE DAILY WITH A MEAL. Quantity: 0 Refills: 0 Ordered: 05-Jun-2022 DO Active CoQ10 CAPS TAKE 1 CAPSULE DAILY WITH A MEAL. Quantity: 0 Refills: 0 Ordered: 24-May-2022 DO Active dexamethasone 6 mg oral tablet (7 sources) Corticosteroid Start: 01-08-2024 End: 03-28-2024 take 1 tablet by mouth once daily Dexamethasone 6 mg tablet Discontinued 6 mg PO DAILY 04 09January 08, 2024 12:00am March 28, 2024 1:09pm diclofenac sodium 0.01 mg/mg topical gel (17 sources) Nonsteroidal Anti-inflammatory Drug Start: 05-21-2023 End: 07-20-2023 diclofenac sodium (Voltaren) 1 % gel Indications: Trigger finger, right ring finger Apply 2.25 inches (2 g) topically 4 times a day. 100 g 2 05/21/2023 07/20/2023 Discontinued (Med List Cleanup) Start: 02-03-2019 Diclofenac Sod ium 1 % GEL apply to affected area qid Refills: 0 DO Start : 03-Feb-2019 Active 100 GM Tube 25 ml dilTIAZem hydrochloride 5 mg/ml injection (1 source) Calcium Channel Nancy Start: 10-10-2023 End: 10-10-2023 10 mg, intravenous, Once, On Sun10/10/23 at 0405, For 1 dose docusate sodium 100 mg oral capsule (1 source) Start: 11-09-2023 End: 11-11-2023 Drug or medicament (substance) (2 sources) Start: 11-14-2023 End: 11-14-2023 End: 11-20-2023 empagliflozin 10 mg oral tablet (7 sources) Sodium-Glucose Cotransporter 2 Inhibitor Start: 01-08-2024 End: 03-28-2024 take 1 tablet by mouth once daily Empagliflozin (Jardiance) 10 mg Tablet Discontinued 10 mg PO DAILY 0 January 08, 2024 12:00am March 28, 2024 1:09pm famotidine 10 mg oral tablet (14 sources) Histamine-2 Receptor Antagonist Start: 04-28-2024 End: 06-30-2024 take 1 tablet by mouth once daily Famotidine 10 mg tablet Discontinued 10 mg PO daily April 28, 2024 1:00am June 30, 2024 11:07am Start: 01-08-2024 End: 04-28-2024 take 1 tablet by mouth twice daily Famotidine 20 mg Tablet Discontinued 20 mg PO TWICE A DAY 0 January 08, 2024 12:00am April 28, 2024 12:22pm 1 ml fentaNYL 0.05 mg/ml inj ection (3 sources) Opioid Agonist Start: 11-14-2023 End: 11-14-2023 Start: 11-13-2023 End: 11-13-2023 ferrous gluconate 324 mg oral tablet (13 sources) Start: 10-13-2022 End: 11-20-2023 glimepiride 2 mg oral tablet (20 sources) Sulfonylurea Start: 02-03-2019 take 1 tablet by mouth once daily at breakfast Glimepiride 2 MG Oral Tablet TAKE 1 TABLET DAILY WITH BREAKFAST. Quantity: 90 Refills: 1 Ordered: 11-Oct-2021 Huan Mcdaniel MD Start : 03-Feb-2019 Active hydroCHLOROthiazide 25 mg / triamterene 37.5 mg oral tablet (20 sources) Potassium-sparing Diuretic, Thiazide Diuretic Start: 05-21-2023 End: 11-20-2023 Start: 02-03-2019 End: 05-20-2024 take 1 tablet by mouth once daily triamterene-hydrochlorothiazid (Maxzide- 25) 37.5-25 mg tablet Indications: Benign essential hypertension Take 1 tablet by mouth once daily. 90 tablet 3 05/21/2023 05/20/2024 Active hydrocortisone acetate 25 mg rectal suppository (20 sources) Corticosteroid Start: 10-18-2022 End: 07-20-2023 hydrocortisone (Anusol-HC) 25 mg suppository Indications: Hemorrhoids, unspecified hemorrhoid type Insert 1 suppository (25 mg) into the rectum 2 times a day as needed for hemorrhoids for up to 14 doses. 14 suppository 10/18/2022 07/20/2023 Discontinued (Med List Cleanup) Start: 07-25-2019 Anusol-HC 25 M G Rectal Suppository INSERT 1 SUPPOSITORY RECTALLY 2 TIMES DAILY. Quantity: 14 Refills: 0 Ordered: 09-Sep-2020 Amelie Castaneda Start : 25-Jul-2019 Active IvettSaliva-B.Bif-S.The rm 175 mg Capsule (7 sources) Start: 01-08-2024 End: 04-28-2024 take 1 capsule by mouth twice daily IvettSaliva-B.Bif-S.Therm 175 mg Capsule Discontinued 1 NMA PO TWICE A DAY 0 January 08, 2024 12:00am April 28, 2024 12:50pm Start: 01-08-2024 End: 04-28-2024 take 1 capsule by mouth twice daily Ivett,Saliva-B.Bif-S.Therm 175 mg Ca psule Discontinued 1 NMA PO TWICE A DAY 0 January 07, 2024 11:00pm April 28, 2024 11:50am levoFLOXacin 500 mg oral tablet (19 sources) Quinolone Antimicrobial Start: 07-21-2019 take 1 tablet by mouth once daily levoFLOXacin 500 MG Oral Tablet TAKE 1 TABLET DAILY DIRECTED. Quantity: 7 Refills: 1 Ordered: 05-Oct-2020 Huan Mcdaniel MD Start : 21-Jul-2019 Active Lidocaine (1 source) Antiarrhythmic, Amide Local Anesthetic Start: 11-19-2023 End: 11-19-2023 LORazepam 0.5 mg oral tablet (20 sources) Benzodiazepine Start: 05-23-2023 End: 08-02-2023 take 1 tablet by mouth once daily at bedtime LORazepam (Ativan) 0.5 mg tablet Indications: Anxiety Take 1 tablet (0.5 mg) by mouth once daily at bedtime. 30 tablet 05/23/2023 08/02/2023 Discontinued (Med List Cleanup) Start: 04-20-2023 End: 05-20-2023 take 1 tablet by mouth once daily at bedtime LORazepam (Ativan) 0.5 mg tablet Indications: Anxiety Take 1 tablet (0.5 mg) by mouth once daily at bedtime. 30 tablet 0 04/20/2023 05/20/2023 Active Start: 02-28-2023 End: 04-20-2023 take 1 tablet by mouth once daily at bedtime LORazepam (Ativan) 1 mg tablet Indications: Anxiety Take 1 tablet (1 mg) by mouth once daily at bedtime. 30 tablet 0 03/28/2023 04/20/2023 Discontinued (Dose adjustment) Start: 10-13-2022 End: 12-13-2022 take 1 tablet by mouth once daily at bedtime LORazepam (Ativan) 1 mg tablet Indications: Anxiety Take 1 tablet (1 mg) by mouth once daily at bedtime. 30 tablet 0 11/13/2022 12/13/2022 Active Start: 11-15-2019 take 1 tablet by ofelia th at bedtime LORazepam 1 MG Oral Tablet TAKE 1 TABLET Bedtime Quantity: 30 Refills: 0 Huan Mcdaniel MD Start : 15-Nov-2019 Active Start: 11-15-2019 take 1 tablet by ofelia th at bedtime LORazepam 1 MG Oral Tablet TAKE 1 TABLET Bedtime Quantity: 30 Refills: 0 Huan Mcdaniel MD Start : 15-Nov-2019 Active Start: 02-03-2019 take 1 tablet by ofelia th at bedtime LORazepam 1 MG Oral Tablet TAKE 1 TABLET Bedtime Quantity: 30 Refills: 0 Ordered: 05-Jun-2022 Huan Mcdaniel MD Start : 03-Feb-2019 Active Magnesium (4 sources) take 1 tablet by ofelia th once daily Magnesium 400 MG Oral Tablet Take 1 tablet daily Quantity: 30 Refills: 11 Ordered: 05-Jun-2022 DO Active Magnesium TABS T itz 1 tablet daily Quantity: 0 Refills: 0 Ordered: 24-May-2022 DO Active 50 ml magnesium sulfate 40 m g/ml injection (6 sources) Start: 11-16-2023 End: 11-19-2023 Start: 11-11-2023 End: 11-11-2023 Start: 11-09-2023 End: 11-09-2023 metFORMIN hydrochloride 500 mg oral tablet (20 sources) Biguanide Start: 08-31-2022 End: 03-12-2024 metFORMIN (Glucophage) 500 mg tablet 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 180 tablet 3 03/13/2023 04/20/2023 Discontinued (Therapy completed) Start: 03-07-2022 take 1 tablet by ofelia th twice daily metFORMIN HCl - 500 MG Oral Tablet TAKE 1 TABLET TWICE DAILY. Quantity: 60 Refills: 5 Ordered: 07-Mar-2022 Huan Mcdaniel MD Start : 07-Mar-2022 Active Start: 02-03-2019 take 1 tablet by ofelia th once daily metFORMIN HCl ER 500 MG Oral Tablet Extended Release 24 Hour TAKE 1 TABLET DAILY DIRECTED. Quantity: 30 Refills: 9 Ordered: 13-Oct-2020 Huan Mcdaniel MD Start : 03-Feb-2019 Active 24 hr metoprolol succinate 25 mg extended release oral tablet (2 sources) beta-Adrenergic Nancy Start: 07-23-2024 End: 07-31-2024 take 1 tablet by mouth once daily Metoprolol Succinate 25 mg tablet extended release 24 hr Discontinued 25 mg PO daily July 23, 2024 12:00am July 31, 2024 3:29pm 5 ml midazolam 1 mg/ml injection (2 sources) Benzodiazepine Start: 11-13-2023 End: 11-13-2023 1 ml morphine sulfate 2 mg/ml prefilled syringe (1 source) Opioid Agonist Start: 10-10-2023 End: 10-10-2023 2 mg, intravenous, Once, On Sun10/10/23 at 0405, For 1 dose mupirocin 0.02 mg/mg topical ointment (20 sources) RNA Synthetase Inhibitor Antibacterial Start: 10-30-2019 Mupirocin 2 % External Ointment apply to opine wounds bid Quantity: 1 Refills: 1 Ordered: 30-Oct-2019 Huan Mcdaniel MD Start : 30-Oct-2019 Active Start: 10-30-2019 Mupirocin 2 % External Ointment apply to opine wounds bid Quantity: 1 Refills: 1 Huan Mcdaniel MD Start : 30-Oct-2019 Active 22 GM Tube PARoxetine hydrochloride 20 mg oral tablet (18 sources) Serotonin Reuptake Inhibitor Start: 11-02-2020 take 1 tablet by mouth once daily PARoxetine HCl - 20 MG Oral Tablet Take 1 tablet daily Quantity: 30 Refills: 11 Ordered: 02-Nov-2020 Huan Mcdaniel MD Start : 02-Nov-2020 Active Start: 02-03-2019 take 1 tablet by ofelia th once daily PARoxetine HCl - 40 MG Oral Tablet TAKE 1 TABLET DAILY. Quantity: 30 Refills: 11 Huan Mcdaniel MD Start : 03-Feb-2019 Active piperacillin 3000 mg / tazobactam 375 mg injection (1 source) Penicillin-class Antibacterial, beta Lactamase Inhibitor Start: 11-09-2023 End: 11-16-2023 take 3.375 g intravenously every six hours polyethylene glycol 3350 389643 mg / potassium chloride 2970 mg / sodium bicarbonate 6740 mg / sodium chloride 5860 mg / sodium sulfate 18031 mg powder for oral solution (7 sources) Osmotic Laxative Start: 04-28-2024 End: 06-30-2024 Peg 3350-Electrolyte s (Golytely) 236-22.74-6.74 -5.86 gram recon soln Discontinued 240 mL PO Q10M 4000 April 28, 2024 1:00am June 30, 2024 11:07am take as directed for split dose bowel prep, until fecal effluent is clear 1 CAPS (4 sources) 1 CAPS TAKE 1 CAPSULE Daily Quantity: 0 Refills: 0 Ordered: 05-Jun-2022 DO Active 1 CAPS TAKE 1 CAPSULE Daily Quantity: 0 Refills: 0 Ordered: 24-May-2022 DO Active rivaroxaban 20 mg oral tablet (20 sources) Factor Xa Inhibitor Start: 12-31-2023 End: 04-28-2024 take 1 tablet by mouth once daily Rivaroxaban (Xarelto) 20 mg tablet Discontinued 20 mg PO DAILY December 31, 2023 12:00am April 28, 2024 12:51pm Start: 11-25-2023 take 1 tablet by ofelia th once daily at mealtime rivaroxaban (Xarelto) 20 mg tablet Indications: Chronic atrial fibrillation (Multi) Take 1 tablet (20 mg) by mouth once daily. Take with food. Do not fill before November 25, 2023. 11/25/2023 Active Start: 11-25-2023 Start: 06-01-2023 End: 11-28-2023 Start: 02-28-2023 take 1 tablet by ofelia th once daily rivaroxaban (Xarelto) 20 mg tablet Indications: Atrial fibrillation, unspecified type (CMS/HCC) Take 1 tablet (20 mg) by mouth once daily. 30 tablet 5 02/28/2023 Active Start: 11-30-2022 take 1 tablet by ofelia th once daily rivaroxaban (Xarelto) 20 mg tablet Indications: Atrial fibrillation, unspecified type (CMS/HCC) Take 1 tablet (20 mg) by mouth once daily. 30 tablet 0 11/30/2022 Active Start: 07-13-2022 take 1 tablet by ofelia th once daily rivaroxaban (Xarelto) 20 mg tablet Indications: Atrial fibrillation, unspecified type (CMS/HCC) Take 1 tablet (20 mg) by mouth once daily. 30 tablet 5 07/13/2022 Active Start: 02-05-2019 take 1 tablet by ofelia th once daily Xarelto 20 MG Oral Tablet Take 1 tablet daily Quantity: 90 Refills: 2 Ordered: 05-Jun-2022 Huan Mcdaniel MD Start : 05-Feb-2019 Active 1000 ml sodium chloride 9 mg/ml injection (2 sources) Start: 10-10-2023 End: 10-11-2023 take 75 mL intravenously every hour 75 mL/hr, intravenous, Continuous, Starting on Sun10/10/23 at 0545 Start: 10-10-2023 End: 10-10-2023 take 125 mL intravenously every hour 125 mL/hr, intravenous, Continuous, Starting on Sun10/10/23 at 0325 traMADol hydrochloride 50 mg oral tablet (2 sources) Opioid Agonist Start: 06-10-2023 End: 06-13-2023 traMADol (Ultram) tablet 50 mg Unspecified Medication (20 sources) Start: 11-11-2020 Unspecified Me dication Bariatric Wheelchair with leg rests and arm rests. Quantity: 1 Refills: 0 Ordered: 11-Nov-2020 Huan Mcdaniel MD Start : 11-Nov-2020 Active Start: 08-21-2019 Unspecified Me dication Medi Circ Aid wide circumference and standard length. Quantity: 2 Refills: 0 Ordered: 21-Aug-2019 Huan Mcdaniel MD Start : 21-Aug-2019 Active 1 kit for each leg Start: 08-21-2019 Unspecified Me dication Medi Circ Aid wide circumference and standard length. Quantity: 2 Refills: 0 Huan Mcdaniel MD Start : 21-Aug-2019 Active Vancomycin (19 sources) Glycopeptide Antibacterial Start: 01-04-2024 End: 04-28-2024 Vancomycin 2 gram recon soln Discontinued 2 g IV Q36H 0 January 04, 2024 12:11pm April 28, 2024 11:53am stop date 01/15/24. Dx: spine osteomyelitis. Weekly bmp, cbc, vanc trough and esr. Routine picc care per protocol. Primary doctor is Dr. Megan Osorio. Start: 01-04-2024 End: 04-28-2024 Vancomycin 2 gram recon soln Discontinued 2 g IV Q36H 0 January 04, 2024 11:11am April 28, 2024 10:53am stop date 01/15/24. Dx: spine osteomyelitis. Weekly bmp, cbc, vanc trough and esr. Routine picc care per protocol. Primary doctor is Dr. Megan Osorio. Start: 12-31-2023 End: 01-04-2024 Vancomycin 2 gram recon soln Discontinued 2 g IV Q36H December 31, 2023 12:00am January 04, 2024 12:11pm stop date 01/12/24, administer 2gram in 400ml at a rate of 400ml/hr via IV Start: 12-31-2023 End: 01-04-2024 Vancomycin 2 gram recon soln Discontinued 2 g IV Q36H December 30, 2023 11:00pm January 04, 2024 11:11am stop date 01/12/24, administer 2gram in 400ml at a rate of 400ml/hr via IV Start: 12-27-2023 End: 01-11-2024 vancomycin (Vancocin) IVPB Indications: Osteomyelitis/Septic Arthritis Infuse 400 mL (2 g) at 400 mL/hr over 60 minutes into a venous catheter every 36 hours for 15 days. 4000 mL 12/27/2023 01/11/2024 Active Start: 11-20-2023 take 1000 mg intrave nously every twelve hours Start: 11-20-2023 End: 12-27-2023 take 1 g intravenously every twelve hours vancomycin (Vancocin) IVPB Indications: Osteomyelitis/Septic Arthritis Infuse 200 mL (1 g) at 200 mL/hr over 60 minutes into a venous catheter every 12 hours. 11/20/2023 12/27/2023 Discontinued (Reorder) (4 sources) Start: 11-19-2023 End: 11-20-2023 Start: 11-19-2023 End: 11-20-2023 Start: 11-09-2023 End: 11-19-2023 Start: 11-09-2023 (1 source) Start: 09-02-2023 End: 11-20-2023 Problems Active Problems Problem Classification Problem Date Documented Da te Episodic/Chronic Abdominal pain (1 source) Epigastric pain; Translations: [Epigastric pain] Onset: 07-08-2024 Episodic Acute bronchitis (20 sources) Acute bronchitis; Translations: [Acute bronchitis] Episodic Administrative/social admission (1 source) Bed confinement status; Translations: [Bed confinement status] Onset: 09-15-2022 Episodic Anxiety disorders (20 sources) Anxiety; Translations: [Anxiety state, unspecified] Onset: 08-30-2022 08-30-2022 Chronic Asthma (20 sources) Asthma; Translations: [Asthma, unspecified type, unspecified] Onset: 08-30-2022 Resolved: 05-21-2023 10-13-2022 Chronic Comment on above: PRN INHALER Cancer of bronchus; lung (3 sources) Malignant neoplasm of unspecified part of unspecified bronchus or lung; Translations: [Malignant neoplasm of lower respiratory tract] Onset: 11-09-2023 Chronic Cardiac dysrhythmias (20 sources) Atrial fibrillation; Translations: [Atrial fibrillation] Onset: 08-30-2022 10-13-2022 Chronic Cardiac dysrhythmias (20 sources) Palpitations; Translations: [Palpitations] Onset: 08-30-2022 Resolved: 12-12-2022 08-30-2022 Episodic Cataract (14 sources) Incipient senile cataract; Translations: [Other age-related incipient cataract, bilateral] Onset: 03-13-2023 03-13-2023 Chronic Chronic kidney disease (20 sources) Chronic kidney disease stage 3; Translations: [Diabetes with renal manifestations, type II or unspecified type, not stated as uncontrolled] Onset: 08-30-2022 Resolved: 08-31-2022 08-31-2022 Chronic Chronic obstructive pulmonary disease and bronchiectasis (8 sources) Chronic obstructive lung disease; Translations: [Chronic obstructive pulmonary disease, unspecified] Onset: 07-08-2024 06-10-2024 Chronic Congestive heart failure; nonhypertensive (14 sources) Congestive heart failure; Translations: [Heart failure, unspecified] Onset: 06-13-2024 06-10-2024 Chronic Deficiency and other anemia (20 sources) Iron deficiency anemia; Translations: [Iron deficiency anemia, unspecified] Onset: 10-12-2022 10-12-2022 Episodic Deficiency and other anemia (7 sources) Chronic anemia; Translations: [Anemia, unspecified] 04-05-2024 Episodic Deficiency and other anemia (20 sources) Anemia; Translations: [Anemia, unspecified] 04-28-2024 Episodic Deficiency and other anemia (2 sources) Anemia, unspecified; Translations: [Anemia, unspecified] Onset: 05-09-2024 Episodic Diabetes mellitus with complications (4 sources) Type 2 diabetes mellitus with other circulatory complications; Translations: [Type 2 diabetes mellitus with other circulatory complications] Onset: 08-30-2022 Chronic Diabetes mellitus without complication (20 sources) Type 2 diabetes mellitus; Translations: [Diabetes mellitus without mention of complication, type II or unspecified type, not stated as uncontrolled] Onset: 08-30-2022 08-30-2022 Chronic Disorders of lipid metabolism (20 sources) Hyperlipidemia; Translations: [Other and unspecified hyperlipidemia] Onset: 08-30-2022 08-30-2022 Chronic Essential hypertension (20 sources) Benign essential hypertension; Translations: [Benign essential hypertension] Onset: 08-30-2022 08-30-2022 Chronic Gastroduodenal ulcer (except hemorrhage) (4 sources) Gastric ulcer; Translations: [Gastric ulcer, unspecified as acute or chronic, without hemorrhage or perforation] 07-31-2024 Chronic Heart valve disorders (2 sources) Aortic valve stenosis; Translations: [Nonrheumatic aortic (valve) stenosis] 08-14-2024 Chronic Hypertension with complications and secondary hypertension (1 source) Hypertensive chronic kidney disease with stage 1 through stage 4 chronic kidney disease, or unspecified chronic kidney disease; Translations: [Hypertensive chronic kidney disease with stage 1 through stage 4 chronic kidney disease, or unspecified chronic kidney disease] Onset: 07-09-2024 Chronic Infective arthritis and osteomyelitis (except that caused by tuberculosis or sexually transmitted disease) (16 sources) Osteomyelitis of vertebra, thoracic region; Translations: [Osteomyelitis of vertebra] Onset: 11-06-2023 Chronic Intestinal infection (1 source) Clostridioides difficile infection; Translations: [Enterocolitis due to Clostridium difficile, not specified as recurrent] 10-13-2022 Episodic Mood disorders (20 sources) Depressive disorder; Translations: [Moderate major depression, single episode] Onset: 08-30-2022 Resolved: 10-13-2022 10-13-2022 Chronic Nutritional deficiencies (20 sources) Vitamin D deficiency; Translations: [Unspecified vitamin D deficiency] Onset: 08-30-2022 08-30-2022 Chronic Nutritional deficiencies (15 sources) Magnesium deficiency; Translations: [Disorders of magnesium metabolism] 06-10-2024 Episodic Osteoarthritis (20 sources) Primary gonarthrosis, bilateral; Translations: [Osteoarthrosis, localized, primary, lower leg] Onset: 08-30-2022 08-30-2022 Chronic Other aftercare (20 sources) Prescribed medication regimen behavior finding; Translations: [Long-term (current) use of other medications] Episodic Other aftercare (20 sources) Patient encounter status; Translations: [Long-term (current) use of other medications] Episodic Other aftercare (20 sources) Long-term current use of benzodiazepine; Translations: [Long-term (current) use of other medications] Episodic Other aftercare (1 source) watermaster (current) use of anticoagulants; Translations: [MCC (current) use of anticoagulants] Onset: 09-15-2022 Episodic Other aftercare (1 source) MCC (current) use of oral hypoglycemic drugs; Translations: [MCC (current) use of oral hypoglycemic drugs] Onset: 09-15-2022 Episodic Other connective tissue disease (20 sources) Muscle weakness; Translations: [Muscle weakness (generalized)] Onset: 10-12-2022 10-12-2022 Episodic Other diseases of kidney and ureters (7 sources) Kidney disease; Translations: [Disorder of kidney and ureter, unspecified] 06-10-2024 Episodic Comment on above: stage 3 Other diseases of veins and lymphatics (20 sources) Lymphedema of lower extremity; Translations: [Other lymphedema] Onset: 08-30-2022 08-30-2022 Chronic Other diseases of veins and lymphatics (1 source) Lymphedema of bilateral lower limbs; Translations: [Lymphedema, not elsewhere classified] 12-12-2022 Chronic Other endocrine disorders (5 sources) Syndrome of inappropriate secretion of antidiuretic hormone; Translations: [Syndrome of inappropriate secretion of antidiuretic hormone] Onset: 09-15-2022 Chronic Other endocrine disorders (20 sources) Syndrome of inappropriate vasopressin secretion; Translations: [Syndrome of inappropriate secretion of antidiuretic hormone] Onset: 04-20-2023 04-20-2023 Chronic Other inflammatory condition of skin (8 sources) Neurodermatitis; Translations: [Neurodermatitis] Episodic Other nutritional; endocrine; and metabolic disorders (15 sources) Obesity; Translations: [Obesity, unspecified] Chronic Other nutritional; endocrine; and metabolic disorders (20 sources) Body mass index 40+ - severely obese; Translations: [Body Mass Index 50.0-59.9, adult] Onset: 08-31-2022 10-13-2022 Chronic Other nutritional; endocrine; and metabolic disorders (3 sources) Morbid obesity; Translations: [Morbid obesity] Chronic Other nutritional; endocrine; and metabolic disorders (1 source) Body mass index (BMI) 40.0-44.9, adult; Translations: [Body mass index [BMI] 40.0-44.9, adult] Onset: 09-15-2022 Chronic Other nutritional; endocrine; and metabolic disorders (1 source) Morbid (severe) obesity due to excess calories; Translations: [Morbid (severe) obesity due to excess calories] Onset: 09-15-2022 Chronic Other nutritional; endocrine; and metabolic disorders (8 sources) Hypomagnesemia; Translations: [Hypomagnesemia] 03-13-2023 Chronic Other nutritional; endocrine; and metabolic disorders (1 source) Hypomagnesemia; Translations: [Hypomagnesemia] Onset: 01-08-2024 Chronic Other screening for suspected conditions (not mental disorders or infectious disease) (1 source) Abnormal coagulation profile; Translations: [Abnormal coagulation profile] Onset: 09-15-2022 Episodic Other upper respiratory infections (5 sources) Acute sinusitis; Translations: [Acute sinusitis, unspecified] Episodic Residual codes; unclassified (1 source) Acquired absence of other specified parts of digestive tract; Translations: [Acquired absence of other specified parts of digestive tract] Onset: 09-15-2022 Episodic Residual codes; unclassified (1 source) H/O Spinal surgery; Translations: [Other specified postprocedural states] 02-28-2024 Episodic Residual codes; unclassified (2 sources) Other specified postprocedural states; Translations: [Other specified postprocedural states] Onset: 02-28-2024 Episodic Residual codes; unclassified (7 sources) Altered mental status; Translations: [Altered mental status, unspecified] 01-16-2024 Episodic Residual codes; unclassified (7 sources) Dependent edema; Translations: [Edema, unspecified] 12-26-2023 Episodic Rheumatoid arthritis and related disease (20 sources) Arthropathy of lumbar facet joint; Translations: [Lumbosacral spondylosis without myelopathy] Onset: 08-30-2022 08-30-2022 Chronic Skin and subcutaneous tissue infections (20 sources) Cellulitis of lower limb; Translations: [Cellulitis and abscess of leg, except foot] Onset: 09-15-2022 Resolved: 02-04-2021 Episodic Spondylosis; intervertebral disc disorders; other back problems (15 sources) Discitis, unspecified, thoracic region; Translations: [Thoracic discitis] Onset: 11-06-2023 Chronic Unclassified (1 source) Contact with and (suspected) exposure to COVID-19; Translations: [Contact with and (suspected) exposure to COVID-19] Onset: 09-15-2022 Unclassified (5 sources) Chronic atrial fibrillation, unspecified; Translations: [Chronic atrial fibrillation, unspecified (Multi)] Onset: 08-30-2022 Unclassified (4 sources) Other persistent atrial fibrillation; Translations: [Other persistent atrial fibrillation (Multi)] Onset: 08-30-2022 Urinary tract infections (3 sources) Urinary tract infection, site not specified; Translations: [Urinary tract infection, site not specified] Onset: 09-08-2022 Episodic Varicose veins of lower extremity (20 sources) Venous stasis ulcer of leg; 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] Onset: 08-30-2022 08-30-2022 Episodic Viral infection (7 sources) Disease caused by 2019-nCoV; Translations: [COVID-19] 12-31-2023 Episodic Viral infection (2 sources) COVID-19; Translations: [COVID-19] Onset: 01-08-2024 Past or Other Problems Problem Classification Problem Date Documented Da te Episodic/Chronic Bacterial infection; unspecified site (11 sources) Bacteremia; Translations: [Bacteremia] Onset: 4 Episodic Coagulation and hemorrhagic disorders (16 sources) Thrombocytopenia, unspecified; Translations: [Blood coagulation disorder] Onset: 3 Resolved: 3 10-12-2022 Chronic Deficiency and other anemia (2 sources) Iron deficiency anemia, unspecified; Translations: [Iron deficiency anemia, unspecified] Onset: 3 Episodic Deficiency and other anemia (3 sources) Iron deficiency anemia secondary to inadequate dietary iron intake; Translations: [Other iron deficiency anemias] 10-13-2022 Episodic Deficiency and other anemia (4 sources) Other iron deficiency anemias; Translations: [Other iron deficiency anemias] Onset: 3 Episodic Fluid and electrolyte disorders (20 sources) Hypokalemia; Translations: [Hypopotassemia] Onset: 3 Resolved: 4 08-30-2022 Episodic Gastrointestinal hemorrhage (8 sources) Gastrointestinal hemorrhage; Translations: [Gastrointestinal hemorrhage, unspecified] Onset: 5 04-05-2024 Episodic Hemorrhoids (20 sources) Bleeding internal hemorrhoids; Translations: [Internal hemorrhoids with other complication] Onset: 3 Resolved: 3 08-30-2022 Episodic Malaise and fatigue (20 sources) Asthenia; Translations: [Other malaise and fatigue] Onset: 3 Resolved: 3 08-30-2022 Episodic Mood disorders (14 sources) Mood disorders Onset: 3 Resolved: 3 08-31-2022 Other and unspecified benign neoplasm (20 sources) History of polyp of colon; Translations: [Personal history of colonic polyps] Onset: 3 08-30-2022 Episodic Other circulatory disease (20 sources) Personal history of other diseases of the circulatory system; Translations: [History of cardiac arrhythmia] Resolved: 9 Episodic Other connective tissue disease (20 sources) Paraparesis; Translations: [Other musculoskeletal symptoms referable to limbs] Onset: 3 Resolved: 3 10-13-2022 Episodic Other diseases of kidney and ureters (20 sources) Kidney lesion; Translations: [Unspecified disorder of kidney and ureter] Onset: 3 08-30-2022 Episodic Other gastrointestinal disorders (20 sources) Diarrhea; Translations: [Diarrhea] Onset: 3 Resolved: 4 08-30-2022 Episodic Other liver diseases (2 sources) Abnormal levels of other serum enzymes; Translations: [Abnormal levels of other serum enzymes] Onset: 4 Episodic Other lower respiratory disease (20 sources) H/O: respiratory disease; Translations: [Personal history of other infectious and parasitic diseases] Resolved: 2 Episodic Other lower respiratory disease (20 sources) H/O: bronchitis; Translations: [Personal history of other diseases of respiratory system] Resolved: 2 Episodic Other lower respiratory disease (2 sources) Shortness of breath; Translations: [Shortness of breath] Onset: 4 Episodic Other lower respiratory disease (2 sources) Other nonspecific abnormal finding of lung field; Translations: [Other nonspecific abnormal finding of lung field] Onset: 4 Episodic Other lower respiratory disease (1 source) Dyspnea; Translations: [Shortness of breath] 11-19-2023 Episodic Other lower respiratory disease (1 source) Lung mass; Translations: [Other nonspecific abnormal finding of lung field] 11-20-2023 Episodic Other skin disorders (20 sources) Inflammatory dermatosis; Translations: [Lichenification and lichen simplex chronicus] Onset: 3 08-30-2022 Episodic Other skin disorders (20 sources) H/O: skin disorder; Translations: [Personal history of diseases of skin and subcutaneous tissue] Resolved: 2 Episodic Pleurisy; pneumothorax; pulmonary collapse (8 sources) Pleural effusion; Translations: [Pleural effusion, not elsewhere classified] Onset: 4 12-31-2023 Episodic Pneumonia (except that caused by tuberculosis or sexually transmitted disease) (8 sources) Pneumonia; Translations: [Pneumonia, unspecified organism] Onset: 4 12-31-2023 Episodic Residual codes; unclassified (1 source) Altered mental status, unspecified; Translations: [Altered mental status, unspecified] Onset: 4 Episodic Residual codes; unclassified (1 source) Edema, unspecified; Translations: [Edema, unspecified] Onset: 5 Episodic Respiratory failure; insufficiency; arrest (adult) (11 sources) Alveolar hypoventilation; Translations: [Respiratory failure, unspecified with hypoxia] Onset: 4 01-16-2024 Episodic Spondylosis; intervertebral disc disorders; other back problems (10 sources) Dorsalgia, unspecified; Translations: [Backache] Onset: 4 Episodic Superficial injury; contusion (5 sources) Contusion of right foot; Translations: [Contusion of right foot, initial encounter] Onset: 4 06-10-2023 Episodic Unclassified (20 sources) Patient encounter status; Translations: [Medication management] Unclassified (3 sources) Prescribed medication regimen behavior finding; Translations: [watermaster prescription benzodiazepine use] Unclassified (14 sources) Onset: 3 Resolved: 4 10-13-2022 NEGATED: Highlighted row has not occurred!Residual codes; unclassified (20 sources) Disease Episodic Results Test Name Value Interpretation Reference Range Facility Anion gap in Serum or Plasma Ordered By: Delgado Amaro on 08-19-2024 Anion gap [Moles/Vol] 10 mmol/L 5- [facility] BUN/creatinine ratioOrdered By: Delgado Amaro on 08-19-2024 Urea nitrogen/Creatinine [Mass ratio] 19.0 mg/mg - [facility] Basic Metabolic Profile (BMP )on 08-19-2024 BUN/CRE 19.0 RATIO Normal - [facility] Comment on above: Order Comment: 503.2 Performed By: #### L 500.2500, L100.0500 ####[facility] [address] [place], [address] Calcium [Mass/Vol] 9.7 mg/dL Normal 7.6-11.0 [facility] Comment on above: Order Comment: 503.2 Performed By: #### L 500.2500, L100.0500 ####[facility] [address] [place], [address] Chloride [Moles/Vol] 100 mmol/L Normal 98-108 [facility] Comment on above: Order Comment: 503.2 Performed By: #### L 500.2500, L100.0500 ####[facility] [address] [place], [address] CO2 [Moles/Vol] 27.5 mmol/L Normal 21.0-32.0 [facility] Comment on above: Order Comment: 503.2 Performed By: #### L 500.2500, L100.0500 ####[facility] [address] [place], [address] Creatinine [Mass/Vol] 1.15 mg/dL Normal 0.70-1.20 [facility] Comment on above: Order Comment: 503.2 Performed By: #### L 500.2500, L100.0500 ####[facility] [address] [place], [address] GAP 10 Normal - [facility] Comment on above: Order Comment: 503.2 Performed By: #### L 500.2500, L100.0500 ####[facility] [address] [place], [address] GFR/1.73 sq M.predicted among non-blacks MDRD (S/P/Bld) [Vol rate/Area] 49 mL/min/{1.73_m2} Low >60 [facility] Comment on above: Order Comment: 503.2 Result Comment: mL/m in/1.73m2 CKD-EPI Creatinine Equation (2020) Performed By: #### L 500.2500, L100.0500 ####[facility] [address] [place], [address] Glucose [Mass/Vol] 101 mg/dL High 70-99 [facility] Comment on above: Order Comment: 503.2 Performed By: #### L 500.2500, L100.0500 ####[facility] [address] [place], [address] Potassium [Moles/Vol] 4.4 mmol/L Normal 3.3-5.1 [facility] Comment on above: Order Comment: 503.2 Result Comment: Hemo lysis present, Results??could be affected.?? Performed By: #### L 500.2500, L100.0500 ####[facility] [address] [place], [address] Sodium [Moles/Vol] 138 mmol/L Normal 133-145 [facility] Comment on above: Order Comment: 503.2 Performed By: #### L 500.2500, L100.0500 ####[facility] [address] [place], [address] Urea nitrogen [Mass/Vol] 22 mg/dL High 4-19 [facility] Comment on above: Order Comment: 503.2 Performed By: #### L 500.2500, L100.0500 ####[facility] [address] [place], [address] CBC-Complete Blood Cnt No Di kaylie 08-19-2024 Erythrocyte distribution width (RBC) [Ratio] 15.9 % High 11.6-14.6 [facility] Comment on above: Order Comment: 503.2 Performed By: #### L 500.2500, L100.0500 ####[facility] [address] [place], [address] Hematocrit (Bld) [Volume fraction] 35.6 % Low 37-47 [facility] Comment on above: Order Comment: 503.2 Performed By: #### L 500.2500, L100.0500 ####[facility] [address] [place], [address] Hemoglobin (Bld) [Mass/Vol] 11.6 g/dL Low 12.0-15.0 [facility] Comment on above: Order Comment: 503.2 Performed By: #### L 500.2500, L100.0500 ####[facility] [address] [place], [address] MCH (RBC) [Entitic mass] 28.4 pg Normal 27.0-32.0 [facility] Comment on above: Order Comment: 503.2 Performed By: #### L 500.2500, L100.0500 ####[facility] [address] [place], [address] MCHC (RBC) [Mass/Vol] 32.6 g/dL Normal 32-36 [facility] Comment on above: Order Comment: 503.2 Performed By: #### L 500.2500, L100.0500 ####[facility] [address] [place], [address] MCV (RBC) [Entitic vol] 87.0 fL Normal 81-99 [facility] Comment on above: Order Comment: 503.2 Performed By: #### L 500.2500, L100.0500 ####[facility] [address] [place], [address] Platelet mean volume (Bld) [Entitic vol] 9.5 fL Normal 6.2-12.0 [facility] Comment on above: Order Comment: 503.2 Performed By: #### L 500.2500, L100.0500 ####[facility] [address] [place], [address] Platelets (Bld) [#/Vol] 180 10*3/uL Normal 150-450 [facility] Comment on above: Order Comment: 503.2 Performed By: #### L 500.2500, L100.0500 ####[facility] [address] [place], [address] RBC (Bld) [#/Vol] 4.09 10*6/uL Low 4.2-5.4 [facility] Comment on above: Order Comment: 503.2 Performed By: #### L 500.2500, L100.0500 ####[facility] [address] [place], [address] RDW SD 50.2 fl High 35.1-43.9 [facility] Comment on above: Order Comment: 503.2 Performed By: #### L 500.2500, L100.0500 ####[facility] [address] [place], [address] WBC (Bld) [#/Vol] 6.4 10*3/uL Normal 4.4-11.0 [facility] Comment on above: Order Comment: 503.2 Performed By: #### L 500.2500, L100.0500 ####[facility] [address] [place], [address] Carbon dioxide, total [Moles /volume] in Central venous bloodOrdered By: Delgado Amaro on 08-19-2024 CO2 [Moles/Vol] 27.5 mmol/L 21.0-32.0 [facility] Chloride assayOrdered By: Kade Amaro on 08-19-2024 Chloride [Moles/Vol] 100 mmol/L 98-108 [facility] Erythrocyte distribution wid th ratioOrdered By: Delgado Amaro on 08-19-2024 Erythrocyte distribution width (RBC) [Ratio] 15.9 % High 11.6-14.6 [facility] Erythrocyte distribution wid th standard deviationOrdered By: Delgado Amaro on 08-19-2024 Erythrocyte distribution width (RBC) [Ratio] 50.2 fl High 35.1-43.9 [facility] Glomerular filtration rate ( GFR) estimation/1.73 sq m using serum, plasma, or whole bOrdered By: Delgado Amaro on 08-19-2024 GFR/1.73 sq M.predicted among non-blacks MDRD (S/P/Bld) [Vol rate/Area] 49 mL/min/{1.73_m2} Low >60 [facility] Comment on above: mL/min/1.73m2 CKD-EP I Creatinine Equation (2020) Hematocrit Auto (Bld) [Volum e fraction]Ordered By: Delgado Amaro on 08-19-2024 Hematocrit (Bld) [Volume fraction] 35.6 % Low 37-47 [facility] Hemoglobin measurementOrdere d By: Delgado Amaro on 08-19-2024 Hemoglobin (Bld) [Mass/Vol] 11.6 g/dL Low 12.0-15.0 [facility] MCV (mean corpuscular volume ) determinationOrdered By: Delgado Amaro on 08-19-2024 MCV (RBC) [Entitic vol] 87.0 fL 81-99 [facility] Mean corpuscular hemoglobin (MCH) determinationOrdered By: Delgado Amaro on 08-19-2024 MCH (RBC) [Entitic mass] 28.4 pg 27.0-32.0 [facility] Mean corpuscular hemoglobin concentration (MCHC) determinationOrdered By: Delgado Amaro on 08-19-2024 MCHC (RBC) [Mass/Vol] 32.6 g/dL 32-36 [facility] Mean platelet volume determi nationOrdered By: Delgado Amaro on 08-19-2024 Platelet mean volume (Bld) [Entitic vol] 9.5 fL 6.2-12.0 [facility] Platelet countOrdered By: Kade Amaro on 08-19-2024 Platelets (Bld) [#/Vol] 180 10*3/uL 150-450 [facility] Potassium measurement (mass/ volume)Ordered By: Delgado Amaro on 08-19-2024 Potassium (Unsp spec) [Mass/Vol] 4.4 mmol/L 3.3-5.1 [facility] Comment on above: Hemolysis present, R esults could be affected. RBC Auto (Bld) [#/Vol]Ordere d By: Delgado Amaro on 08-19-2024 RBC (Bld) [#/Vol] 4.09 10*6/uL Low 4.2-5.4 [facility] Serum creatinine measurement (mass/volume)Ordered By: Delgado Amaro on 08-19-2024 Creatinine [Mass/Vol] 1.15 mg/dL 0.70-1.20 [facility] Serum glucose measurement (m ass/volume)Ordered By: Delgado Amaro on 08-19-2024 Glucose [Mass/Vol] 101 mg/dL High 70-99 [facility] Serum or plasma calcium kay urement (mass/volume)Ordered By: Delgado Amaro on 08-19-2024 Calcium [Mass/Vol] 9.7 mg/dL 7.6-11.0 [facility] Serum or plasma urea nitroge n measurement (mass/volume)Ordered By: Delgado Amaro on 08-19-2024 Urea nitrogen [Mass/Vol] 22 mg/dL High 4-19 [facility] Sodium levelOrdered By: Dimitry Amaro on 08-19-2024 Sodium [Moles/Vol] 138 mmol/L 133-145 [facility] White blood cell (WBC) count Ordered By: Delgado Amaro on 08-19-2024 WBC (Bld) [#/Vol] 6.4 10*3/uL 4.4-11.0 [facility] Cardiovascular stress test r eportOrdered By: Henri Pedraza on 08-13-2024 Study report [facility] [address] [place] [address] MR#: [id number] Acct: [id number] Name: DARYN SHAH Rep #: [id number] 5 : 1945 78 From: Henri Pedraza MD Primary Care: April Mullen MD Status: REG CLI Referring Dr: Henri Pedraza MD Sex: F C Stress Test Report Date: 08/13/2024 Procedure: Pharmacologic stress nuclear imaging study Indications: Heart failure Consent: Per the patient Procedure: The patient underwent pharmacologic (Regadenoson 0.4mg ) evaluation with a peak heart rate of 113 beats per minute (78%predicted maximal heart rate) and a peak blood pressure of 112/74 mmHg. The baseline ECG demonstrated atrial fibrillation. The peak pharmacologic ECG failed to show any ischemic changes. Occasional PVCs noted. There was no complaint of chest discomfort during pharmacologic infusion or recovery. The patient was injected with 12.3 millicuries of technetium 99m Cardiolite and subsequently rest SPECT Cardiolite nuclear imaging was obtained in the horizontal long, vertical long, and short axis views. The patient underwent pharmacologic (Regadenoson) evaluation. The patient was injected with 37.6 millicuries of technetium 99m Cardiolite and subsequently stress SPECT Cardiolite nuclear imaging was obtained in the horizontal long, vertical long, and short axis views. A gated Cardiolite study at peak stress was obtained. The examination was stopped secondary to completion of protocol. Rest and stress SPECT Cardiolite nuclear imaging status post realignment, normalization, and attenuation correction demonstrate mildly reduced perfusion of the apex both at rest as well as post pharmacological stress. Likely attenuation artifact versus physiological thinning. Gated images reveal generalized hypokinesis of the LV. The reported LVEF is 34%. Impression: 1. Pharmacologic (Regadenoson) evaluation 2. Peak pharmacologic ECG with no ischemic changes. 3. Baseline atrial fibrillation. Occasional PVCs noted. 5. No reversible perfusion defects noted. Small fixed apical defect likely suggestive of attenuation artifact versus physiological thinning. 6. The gated Cardiolite study reports an LVEF of 34%. This note was generated with Muluation software. It may contain incorrectwords, spelling, and punctuation that were not noted in checking the note beforesigning. 08/13/24 1045 Date _ Henri Pedraza MD CC: Dr. Henri Pedraza MD; April Mullen MD ~ Date Dictated: 08/13/24 1041 Date Transcribed: 08/13/24 104 Continuity Director: ROGER Sterling [facility] Work Phone: Echo Completeon 08-13-2024 Echo Complete Normal [facility] Echocardiogram study reportO rdered By: Henri Pedraza on 08-13-2024 Study report [facility] [address] [place] [address] Echo Complete 08/13/24 1000 MR#: [id number] Acct: [id number] Name: DARYN SHAH BLANE Rep #:[id number] 2 : 1945 78 From: Henri Pedraza MD Attending Dr: Dr. Henri Pedraza MD Status: REG CLI Ordering Dr: Henri Pedraza MD Date: Location: [facility] Sex: F C Admitted: Reason For Study Reason For Study: CHF Procedure This was a 2D Doppler, Color Flow transthoracic echocardiogram. Exam performed in department. Left Ventricle Normal size and thickness. Mild to moderate global left ventricular systolic dysfunction. Estimated LVEF 40-45%. Diastolic dysfunction. Right Ventricle Normal right ventricle. Atria The left atrium is severely enlarged. The right atrium is moderately enlarged. Mitral Valve Mild mitral annular calcification. Moderate (2+) mitral valve insufficiency. Tricuspid Valve Moderate (2+) tricuspid valve insufficiency. Right ventricular systolic pressureestimated to be 62 mmHg. Aortic Valve Moderately calcified aortic valve. Severe aortic valve stenosis with mean peak gradient 40 mmHg. Mild (1+) aortic valve insufficiency. Pulmonic Valve The pulmonic valve is not well visualized. Great Vessels The aortic root is not well visualized. Pericardium/Pleural No pericardial effusion. MMode/2D Measurements & Calculations LVIDd: 5.3 cm IVSd: 1.1 cm LVOT diam: 2.0 cm LVIDs: 4.3 cm LVPWd: 1.1 cm LVOT area: 3.0 cm2 RVDd: 3.1 cm FS: 19.0 % _ LAV(MOD-bp): 124.6 ml LVAd ap4: 38.8 cm2 SV(MOD-sp4): 91.4 ml LAV(MOD-bp) Indexed: 62.2 ml/m2 LVLd ap4: 8.0 cm SI(MOD-sp4): 45.6 ml/m2 LAV(MOD-sp2): 110.9 ml EDV(MOD-sp4): 153.8 ml LAV(MOD-sp4): 135.2 ml EDV(sp4-el): 160.6 ml LVAs ap4: 22.1 cm2 LVLs ap4: 7.0 cm ESV(MOD-sp4): 62.4 ml ESV(sp4-el): 59.4 ml EF(MOD-sp4): 59.4 % EF(sp4-el): 63.0 % SV(sp4-el): 101.2 ml LA A4 area: 32.7 cm2 LA dimension(2D): 4.6 cm RA A4 area: 24.1 cm2 TAPSE: 1.4 cm Doppler Measurements & Calculations MV E max filemon: 107.6 cm/sec Lat Peak E' Filemon: 13.7 cm/sec Med Peak E' Filemon: 5.3 cm/sec E/E' lat: 7.9 E/E' med: 20.4 Ao V2 max: 409.8 cm/sec AI max filemon: 360.9 cm/sec LV V1 max: 82.0 cm/sec Ao max P.3 mmHg AI max P.1 mmHg LV V1 max P.7 mmHg Ao V2 mean: 303.3 cm/sec LV V1 mean P.5 mmHg Ao mean P.0 mmHg AI dec slope: 164.2 cm/sec2 LV V1 mean: 58.2 cm/sec Ao V2 VTI: 91.0 cm AI P1/2t: 643.7 msec LV V1 VTI: 20.2 cm AV (velocity ratio): 0.22 HARMAN(I,D): 0.67 cm2 HARMAN(V,D): 0.60 cm2 _ SV(LVOT): 60.6 ml PA V2 max: 117.5 cm/sec TR max filemon: 345.1 cm/sec PA V2 mean: 65.5 cm/sec TR max P.6 mmHg ECHO/Echo Complete Interpretation Summary Mild to moderate global left ventricular systolic dysfunction. Estimated LVEF 40-45%. Diastolic dysfunction. The left atrium is severely enlarged. The right atrium is moderately enlarged. Moderate (2+) mitral valve insufficiency. Moderate (2+) tricuspid valve insufficiency. Right ventricular systolic pressure estimated to be 62 mmHg. Moderately calcified aortic valve. Severe aortic valve stenosis with mean peak gradient 40 mmHg. Ordering Physician: Henri Pedraza Referring Physician: APRIL MULLEN Performed By: Kate Phan, JASMIN, RVT 08/13/24 1153 Date _ Henri Pedraza MD CC: Dr. Henri Pedraza MD; April Mullen MD ~ Date Dictated: 08/13/24 1000 Date Transcribed: 08/13/24 1153 Continuity Director: Signed [facility] Work Phone: Stress Reporton 08-13-2024 Stress Report Normal [facility] Gastroenterology Visit Repor ton 07-31-2024 Gastroenterology Visit Report Normal [facility] 12 Lead EKG performed by [facility] on 07-23-2024 12 Lead EKG performed by [facility] Normal [facility] Cardiology Visit Reporton Cardiology Visit Report Normal [facility] Anion gap in Serum or Plasma Ordered By: Delgado Amaro on 07-22-2024 Anion gap [Moles/Vol] 10 mmol/L 08-21 [facility] Automated blood erythrocyte countOrdered By: Delgado Amaro on 07-22-2024 RBC (Bld) [#/Vol] 4.28 10*6/uL Normal 4.2-5.4 [facility] Comment on above: Order Comment: 503.2 Performed By: #### L 500.2500, L100.0500 ####[facility] [address] [place], [address] Automated blood hematocrit ( percentage)Ordered By: Delgado Amaro on 07-22-2024 Hematocrit (Bld) [Volume fraction] 35.6 % Low 37-47 [facility] Comment on above: Order Comment: 503.2 Performed By: #### L 500.2500, L100.0500 ####[facility] [address] [place], [address] BUN/creatinine ratioOrdered By: Delgado Amaro on 07-22-2024 Urea nitrogen/Creatinine [Mass ratio] 16.8 mg/mg - [facility] Basic Metabolic Profile (BMP )on 07-22-2024 BUN/CRE 16.8 RATIO Normal - [facility] Comment on above: Order Comment: 503.2 Performed By: #### L 500.2500, L100.0500 ####[facility] [address] [place], [address] GAP 10 Normal - [facility] Comment on above: Order Comment: 503.2 Performed By: #### L 500.2500, L100.0500 ####[facility] [address] [place], [address] Potassium [Moles/Vol] 3.9 mmol/L Normal 3.3-5.1 [facility] Comment on above: Order Comment: 503.2 Performed By: #### L 500.2500, L100.0500 ####[facility] [address] [place], [address] CBC-Complete Blood Cnt No Di ffon 07-22-2024 RDW SD 55.6 fl High 35.1-43.9 [facility] Comment on above: Order Comment: 503.2 Performed By: #### L 500.2500, L100.0500 ####[facility] [address] [place], [address] Carbon dioxide, total [Moles /volume] in Central venous bloodOrdered By: Delgado Amaro on 07-22-2024 CO2 [Moles/Vol] 28.7 mmol/L Normal 21.0-32.0 [facility] Comment on above: Order Comment: 503.2 Performed By: #### L 500.2500, L100.0500 ####[facility] [address] [place], [address] Chloride assayOrdered By: Kade Amaro on 07-22-2024 Chloride [Moles/Vol] 102 mmol/L Normal 98-108 [facility] Comment on above: Order Comment: 503.2 Performed By: #### L 500.2500, L100.0500 ####[facility] [address] [place], [address] Erythrocyte distribution wid th ratioOrdered By: Delgado Amaro on 07-22-2024 Erythrocyte distribution width (RBC) [Ratio] 18.2 % High 11.6-14.6 [facility] Comment on above: Order Comment: 503.2 Performed By: #### L 500.2500, L100.0500 ####[facility] [address] [place], [address] Erythrocyte distribution wid th standard deviationOrdered By: Delgado Amaro on 07-22-2024 Erythrocyte distribution width (RBC) [Ratio] 55.6 fl High 35.1-43.9 [facility] Glomerular filtration rate ( GFR) estimation/1.73 sq m using serum, plasma, or whole bOrdered By: Delgado Amaro on 07-22-2024 GFR/1.73 sq M.predicted among non-blacks MDRD (S/P/Bld) [Vol rate/Area] 47 mL/min/{1.73_m2} Low >60 [facility] Comment on above: mL/min/1.73m2 CKD-EP I Creatinine Equation (2020) Order Comment: 503.2 Result Comment: mL/m in/1.73m2 CKD-EPI Creatinine Equation (2020) Performed By: #### L 500.2500, L100.0500 ####[facility] [address] [place], [address] Hemoglobin measurementOrdere d By: Delgado Amaro on 07-22-2024 Hemoglobin (Bld) [Mass/Vol] 11.4 g/dL Low 12.0-15.0 [facility] Comment on above: Order Comment: 503.2 Performed By: #### L 500.2500, L100.0500 ####[facility] [address] [place], [address] MCV (mean corpuscular volume ) determinationOrdered By: Delgado Amaro on 07-22-2024 MCV (RBC) [Entitic vol] 83.2 fL Normal 81-99 [facility] Comment on above: Order Comment: 503.2 Performed By: #### L 500.2500, L100.0500 ####[facility] [address] [place], [address] Mean corpuscular hemoglobin (MCH) determinationOrdered By: Delgado Amaro on 07-22-2024 MCH (RBC) [Entitic mass] 26.6 pg Low 27.0-32.0 [facility] Comment on above: Order Comment: 503.2 Performed By: #### L 500.2500, L100.0500 ####[facility] [address] [place], [address] Mean corpuscular hemoglobin concentration (MCHC) determinationOrdered By: Delgado Amaro on 07-22-2024 MCHC (RBC) [Mass/Vol] 32.0 g/dL Normal 32-36 [facility] Comment on above: Order Comment: 503.2 Performed By: #### L 500.2500, L100.0500 ####[facility] [address] [place], [address] Mean platelet volume determi nationOrdered By: Delgado Amaro on 07-22-2024 Platelet mean volume (Bld) [Entitic vol] 9.2 fL Normal 6.2-12.0 [facility] Comment on above: Order Comment: 503.2 Performed By: #### L 500.2500, L100.0500 ####[facility] [address] [place], [address] Platelet countOrdered By: Kade Amaro on 07-22-2024 Platelets (Bld) [#/Vol] 159 10*3/uL Normal 150-450 [facility] Comment on above: Order Comment: 503.2 Performed By: #### L 500.2500, L100.0500 ####[facility] [address] [place], [address] Potassium measurement (mass/ volume)Ordered By: Delgado Amaro on 07-22-2024 Potassium (Unsp spec) [Mass/Vol] 3.9 mmol/L 3.3-5.1 [facility] Serum creatinine measurement (mass/volume)Ordered By: Delgado Amaro on 07-22-2024 Creatinine [Mass/Vol] 1.19 mg/dL Normal 0.70-1.20 [facility] Comment on above: Order Comment: 503.2 Performed By: #### L 500.2500, L100.0500 ####[facility] [address] [place], [address] Serum glucose measurement (m ass/volume)Ordered By: Delgado Amaro on 07-22-2024 Glucose [Mass/Vol] 82 mg/dL Normal 70-99 [facility] Comment on above: Order Comment: 503.2 Performed By: #### L 500.2500, L100.0500 ####[facility] [address] [place], [address] Serum or plasma calcium kay urement (mass/volume)Ordered By: Delgado Amaro on 07-22-2024 Calcium [Mass/Vol] 9.2 mg/dL Normal 7.6-11.0 [facility] Comment on above: Order Comment: 503.2 Performed By: #### L 500.2500, L100.0500 ####[facility] [address] [place], [address] Serum or plasma urea nitroge n measurement (mass/volume)Ordered By: Delgado Amaro on 07-22-2024 Urea nitrogen [Mass/Vol] 20 mg/dL High 4-19 [facility] Comment on above: Order Comment: 503.2 Performed By: #### L 500.2500, L100.0500 ####[facility] [address] [place], [address] Sodium levelOrdered By: Dimitry Amaro on 07-22-2024 Sodium [Moles/Vol] 141 mmol/L Normal 133-145 [facility] Comment on above: Order Comment: 503.2 Performed By: #### L 500.2500, L100.0500 ####[facility] [address] [place], [address] White blood cell (WBC) count Ordered By: Delgado Amaro on 07-22-2024 WBC (Bld) [#/Vol] 6.9 10*3/uL Normal 4.4-11.0 [facility] Comment on above: Order Comment: 503.2 Performed By: #### L 500.2500, L100.0500 ####[facility] [address] [place], [address] Bedside Glucoseon 07-01-2024 FINGERSTICK GLU 62 mg/dL Low 74-106 [facility] Comment on above: Result Comment: ASHU KELLY OF PATIENT CARE PER NURSING PROTOCOL Performed By: #### L 501.080 ####[facility] [address] [place], [address] Colonoscopy Reporton Colonoscopy Report Normal [facility] EGD Reporton 07-01-2024 EGD Report Normal [facility] By: Jacinto Munoz on 07-01-2024 Bedside Glucose (Misc Panel) 62 mg/dL Low 74-106 [facility] Comment on above: MANAGEMENT OF PATIEN T CARE PER NURSING PROTOCOL Glucose [Mass/Vol] 62 mg/dL Low 74-106 [facility] Comment on above: MANAGEMENT OF PATIEN T CARE PER NURSING PROTOCOL MR/POSTOP.ANEon 07-01-2024 MR/POSTOP.ANE Normal [facility] MR/SWBLELPC9cg 07-01-2024 MR/POSTOPAN2 Normal [facility] Surgery Specimen Level Lon 07-01-2024 Surgery Specimen Level IV Normal [facility] Comment on above: Performed By: #### P SUIV ####[facility] [address] [place], [address] MR/PAT.ANEon 06-30-2024 MR/PAT.ANE Normal [facility] Anion gap in Serum or Plasma Ordered By: Delgado Amaro on 06-24-2024 Anion gap [Moles/Vol] 11 mmol/L 5-15 [facility] Automated blood erythrocyte countOrdered By: Delgado Amaro on 06-24-2024 RBC (Bld) [#/Vol] 4.14 10*6/uL Low 4.2-5.4 [facility] Comment on above: Order Comment: 503.2 Performed By: #### L 100.0500, L500.2500, L100.4500 ####[facility] [address] [place], [address] Automated blood hematocrit ( percentage)Ordered By: Delgado Amaro on 06-24-2024 Hematocrit (Bld) [Volume fraction] 32.9 % Low 37-47 [facility] Comment on above: Order Comment: 503.2 Performed By: #### L 100.0500, L500.2500, L100.4500 ####[facility] [address] [place], [address] BUN/creatinine ratioOrdered By: Delgado Amaro on 06-24-2024 Urea nitrogen/Creatinine [Mass ratio] 18.1 mg/mg - [facility] Basic Metabolic Profile (BMP )on 06-24-2024 BUN/CRE 18.1 RATIO Normal 01-26 [facility] Comment on above: Order Comment: 503.2 Performed By: #### L 100.0500, L500.2500, L100.4500 ####[facility] [address] [place], [address] GAP 11 Normal 5-15 [facility] Comment on above: Order Comment: 503.2 Performed By: #### L 100.0500, L500.2500, L100.4500 ####[facility] [address] [place], [address] Blood manual differential co mment interpretation (narrative result)Ordered By: Delgado Amaro on 06-24-2024 Manual differential comment Jd (Bld) [Interp] COMMENT [facility] Comment on above: 1+ ANISO. CBC-Complete Blood Cnt No Di ffon 06-24-2024 RDW SD 57.4 fl High 35.1-43.9 [facility] Comment on above: Order Comment: 503.2 Performed By: #### L 100.0500, L500.2500, L100.4500 ####[facility] [address] [place], [address] Carbon dioxide, total [Moles /volume] in Central venous bloodOrdered By: Delgado Amaro on 06-24-2024 CO2 [Moles/Vol] 26.3 mmol/L Normal 21.0-32.0 [facility] Comment on above: Order Comment: 503.2 Performed By: #### L 100.0500, L500.2500, L100.4500 ####[facility] [address] [place], [address] Chloride assayOrdered By: Kade Amaro on 06-24-2024 Chloride [Moles/Vol] 103 mmol/L Normal 98-108 [facility] Comment on above: Order Comment: 503.2 Performed By: #### L 100.0500, L500.2500, L100.4500 ####[facility] [address] [place], [address] Differential Commenton 06-24 SMEAR COMMENT COMMENT Normal [facility] Comment on above: Order Comment: 503.2 Result Comment: 1+ A NISO. Performed By: #### L 100.0500, L500.2500, L100.4500 ####[facility] [address] [place], [place], [address] Erythrocyte distribution wid th ratioOrdered By: Delgado Amaro on 06-24-2024 Erythrocyte distribution width (RBC) [Ratio] 20.1 % High 11.6-14.6 [facility] Comment on above: Order Comment: 503.2 Performed By: #### L 100.0500, L500.2500, L100.4500 ####[facility] [address] [place], [place], [address] Erythrocyte distribution wid th standard deviationOrdered By: Delgado Amaro on 06-24-2024 Erythrocyte distribution width (RBC) [Entitic vol] 57.4 fL High 35.1-43.9 [facility] Erythrocyte distribution width (RBC) [Ratio] 57.4 fl High 35.1-43.9 [facility] GFR/1.73 sq M.predicted tanner g non-blacks MDRD (S/P/Bld) [Vol rate/Area]Ordered By: Delgado Amaro on 06-24-2024 Estimated GFR (MDRD) Non-Af Amer 49 Low >60 [facility] Comment on above: mL/min/1.73m2 CKD-EP I Creatinine Equation (2020) Glomerular filtration rate ( GFR) estimation/1.73 sq m using serum, plasma, or whole bOrdered By: Delgado Amaro on 06-24-2024 GFR/1.73 sq M.predicted among non-blacks MDRD (S/P/Bld) [Vol rate/Area] 49 mL/min/{1.73_m2} Low >60 [facility] Comment on above: mL/min/1.73m2 CKD-EP I Creatinine Equation (2020) Order Comment: 503.2 Result Comment: mL/m in/1.73m2 CKD-EPI Creatinine Equation (2020) Performed By: #### L 100.0500, L500.2500, L100.4500 ####[facility] [address] [place], [address] Hemoglobin measurementOrdere d By: Delgado Amaro on 06-24-2024 Hemoglobin (Bld) [Mass/Vol] 10.3 g/dL Low 12.0-15.0 [facility] Comment on above: Order Comment: 503.2 Performed By: #### L 100.0500, L500.2500, L100.4500 ####[facility] [address] [place], [address] MCV (mean corpuscular volume ) determinationOrdered By: Delgado Amaro on 06-24-2024 MCV (RBC) [Entitic vol] 79.5 fL Low 81-99 [facility] Comment on above: Order Comment: 503.2 Performed By: #### L 100.0500, L500.2500, L100.4500 ####[facility] [address] [place], [address] Manual differential comment Jd (Bld) [Interp]Ordered By: Delgado Amaro on 06-24-2024 Differential Comment COMMENT [facility] Comment on above: 1+ ANISO. Mean corpuscular hemoglobin (MCH) determinationOrdered By: Delgado Amaro on 06-24-2024 MCH (RBC) [Entitic mass] 24.9 pg Low 27.0-32.0 [facility] Comment on above: Order Comment: 503.2 Performed By: #### L 100.0500, L500.2500, L100.4500 ####[facility] [address] [place], [address] Mean corpuscular hemoglobin concentration (MCHC) determinationOrdered By: Delgado Amaro on 06-24-2024 MCHC (RBC) [Mass/Vol] 31.3 g/dL Low 32-36 [facility] Comment on above: Order Comment: 503.2 Performed By: #### L 100.0500, L500.2500, L100.4500 ####[facility] [address] [place], [address] Mean platelet volume determi nationOrdered By: Delgado Amaro on 06-24-2024 Platelet mean volume (Bld) [Entitic vol] 9.4 fL Normal 6.2-12.0 [facility] Comment on above: Order Comment: 503.2 Performed By: #### L 100.0500, L500.2500, L100.4500 ####[facility] [address] [place], [address] Platelet countOrdered By: Kade Amaro on 06-24-2024 Platelets (Bld) [#/Vol] 137 10*3/uL Low 150-450 [facility] Comment on above: Order Comment: 503.2 Performed By: #### L 100.0500, L500.2500, L100.4500 ####[facility] [address] [place], [address] Potassium measurement (mass/ volume)Ordered By: Delgado Amaro on 06-24-2024 Potassium [Moles/Vol] 3.8 mmol/L Normal 3.3-5.1 [facility] Comment on above: Order Comment: 503.2 Performed By: #### L 100.0500, L500.2500, L100.4500 ####[facility] [address] [place], [address] Potassium (Unsp spec) [Mass/Vol] 3.8 mmol/L 3.3-5.1 [facility] Serum creatinine measurement (mass/volume)Ordered By: Delgado Amaro on 06-24-2024 Creatinine [Mass/Vol] 1.16 mg/dL Normal 0.70-1.20 [facility] Comment on above: Order Comment: 503.2 Performed By: #### L 100.0500, L500.2500, L100.4500 ####[facility] [address] [place], [address] Serum glucose measurement (m ass/volume)Ordered By: Delgado Amaro on 06-24-2024 Glucose [Mass/Vol] 102 mg/dL High 70-99 [facility] Comment on above: Order Comment: 503.2 Performed By: #### L 100.0500, L500.2500, L100.4500 ####[facility] [address] [place], [address] Serum or plasma calcium kay urement (mass/volume)Ordered By: Delgado Amaro on 06-24-2024 Calcium [Mass/Vol] 8.9 mg/dL Normal 7.6-11.0 [facility] Comment on above: Order Comment: 503.2 Performed By: #### L 100.0500, L500.2500, L100.4500 ####[facility] [address] [place], [address] Serum or plasma urea nitroge n measurement (mass/volume)Ordered By: Delgado Amaro on 06-24-2024 Urea nitrogen [Mass/Vol] 21 mg/dL High 4-19 [facility] Comment on above: Order Comment: 503.2 Performed By: #### L 100.0500, L500.2500, L100.4500 ####[facility] [address] [place], [address] Sodium levelOrdered By: Dimitry Amaro on 06-24-2024 Sodium [Moles/Vol] 140 mmol/L Normal 133-145 [facility] Comment on above: Order Comment: 503.2 Performed By: #### L 100.0500, L500.2500, L100.4500 ####[facility] [address] [place], [address] White blood cell (WBC) count Ordered By: Delgado Amaro on 06-24-2024 WBC (Bld) [#/Vol] 6.3 10*3/uL Normal 4.4-11.0 [facility] Comment on above: Order Comment: 503.2 Performed By: #### L 100.0500, L500.2500, L100.4500 ####[facility] [address] [place], [address] BUN/creatinine ratioOrdered By: April Mullen on 06-04-2024 Urea nitrogen/Creatinine [Mass ratio] 24.1 mg/mg High 10-20 [facility] Basic Metabolic Profile (BMP )on 06-04-2024 Anion gap [Moles/Vol] 12 mmol/L Normal 5-15 [facility] Comment on above: Order Comment: 503-2 Performed By: #### L 500.2500 ####[facility] [address] [place], [address] BUN/CRE 24.1 RATIO High 10-20 [facility] Comment on above: Order Comment: 503-2 Performed By: #### L 500.2500 ####[facility] [address] [place], [address] Calcium [Mass/Vol] 9.1 mg/dL Normal 7.6-11.0 [facility] Comment on above: Order Comment: 503-2 Performed By: #### L 500.2500 ####[facility] [address] [place], [address] Chloride [Moles/Vol] 101 mmol/L Normal 96-108 [facility] Comment on above: Order Comment: 503-2 Performed By: #### L 500.2500 ####[facility] [address] [place], [address] CO2 [Moles/Vol] 27.3 mmol/L Normal 22.0-29.0 [facility] Comment on above: Order Comment: 503-2 Performed By: #### L 500.2500 ####[facility] [address] [place], [address] Creatinine [Mass/Vol] 1.2 mg/dL High 0.6-1.0 [facility] Comment on above: Order Comment: 503-2 Performed By: #### L 500.2500 ####[facility] [address] [place], [address] GFR/1.73 sq M.predicted among non-blacks MDRD (S/P/Bld) [Vol rate/Area] 49 mL/min/{1.73_m2} Low >60 [facility] Comment on above: Order Comment: 503-2 Result Comment: mL/m in/1.73m2 CKD-EPI Creatinine Equation (2020) Performed By: #### L 500.2500 ####[facility] [address] [place], [address] Glucose [Mass/Vol] 122 mg/dL High 70-99 [facility] Comment on above: Order Comment: 503-2 Performed By: #### L 500.2500 ####[facility] [address] [place], [address] Potassium [Moles/Vol] 4.1 mmol/L Normal 3.3-5.1 [facility] Comment on above: Order Comment: 503-2 Performed By: #### L 500.2500 ####[facility] [address] [place], [address] Sodium [Moles/Vol] 140 mmol/L Normal 133-145 [facility] Comment on above: Order Comment: 503-2 Performed By: #### L 500.2500 ####[facility] [address] [place], [address] Urea nitrogen [Mass/Vol] 28 mg/dL High 4-19 [facility] Comment on above: Order Comment: 503-2 Performed By: #### L 500.2500 ####[facility] [address] [place], [address] Carbon dioxide measurementOr dered By: April Mullen on 06-04-2024 CO2 [Moles/Vol] 27.3 mmol/L 22.0-29.0 [facility] Chloride measurementOrdered By: April Mullen on 06-04-2024 Chloride [Moles/Vol] 101 mmol/L 96-108 [facility] Creatinine [Moles/Vol]Ordere d By: April Mullen on 06-04-2024 Creatinine [Mass/Vol] 1.2 mg/dL High 0.6-1.0 [facility] GFR/1.73 sq M.predicted tanner g non-blacks MDRD (S/P/Bld) [Vol rate/Area]Ordered By: April Mullen on 06-04-2024 Estimated GFR (MDRD) Non-Af Amer 49 Low >60 [facility] Comment on above: mL/min/1.73m2 CKD-EP I Creatinine Equation (2020) Glomerular filtration rate ( GFR) estimation/1.73 sq m using serum, plasma, or whole bOrdered By: April Mullen on 06-04-2024 GFR/1.73 sq M.predicted among non-blacks MDRD (S/P/Bld) [Vol rate/Area] 49 mL/min/{1.73_m2} Low >60 [facility] Comment on above: mL/min/1.73m2 CKD-EP I Creatinine Equation (2020) Serum glucose measurement (m ass/volume)Ordered By: April Mullen on 06-04-2024 Glucose [Mass/Vol] 122 mg/dL High 70-99 [facility] Serum or plasma anion gap de termination (moles/volume)Ordered By: April Mullen on 06-04-2024 Anion gap [Moles/Vol] 12 mmol/L 5-15 [facility] Serum or plasma calcium kay urement (mass/volume)Ordered By: April Mullen on 06-04-2024 Calcium [Mass/Vol] 9.1 mg/dL 7.6-11.0 [facility] Serum or plasma creatinine m easurement (moles/volume)Ordered By: April Mullen on 06-04-2024 Creatinine [Moles/Vol] 1.2 mg/dL High 0.6-1.0 [facility] Serum or plasma potassium me asurementOrdered By: April Mullen on 06-04-2024 Potassium [Moles/Vol] 4.1 mmol/L 3.3-5.1 [facility] Serum or plasma sodium measu rement (moles/volume)Ordered By: April Mullen on 06-04-2024 Sodium [Moles/Vol] 140 mmol/L 133-145 [facility] Serum or plasma urea nitroge n measurement (mass/volume)Ordered By: April Mullen on 06-04-2024 Urea nitrogen [Mass/Vol] 28 mg/dL High -19 [facility] BUN/creatinine ratioOrdered By: Delgado Amaro on 06-03-2024 Urea nitrogen/Creatinine [Mass ratio] 25.0 mg/mg High - [facility] Basic Metabolic Profile (BMP )on 06-03-2024 BUN/CRE 25.0 RATIO [facility] Comment on above: Performed By: #### L 500.2500 ####[facility] [address] [place], [address] Chloride [Moles/Vol] 101 mmol/L Normal 96-108 [facility] Comment on above: Performed By: #### L 500.2500 ####[facility] [address] [place], [address] CO2 [Moles/Vol] 28.1 mmol/L Normal 22.0-29.0 [facility] Comment on above: Performed By: #### L 500.2500 ####[facility] [address] [place], [address] BUN Normal 7-18 [facility] Comment on above: Order Comment: 503.2 Result Comment: PUTT ING UNDER DIFFERENT REQ Performed By: #### L 100.0500, L500.2500 ####[facility] [address] [place], [address] BUN/CRE Normal 10-20 [facility] Comment on above: Order Comment: 503.2 Result Comment: PUTT ING UNDER DIFFERENT REQ Performed By: #### L 100.0500, L500.2500 ####[facility] [address] [place], [address] Calcium Normal 8.5-10.1 [facility] Comment on above: Order Comment: 503.2 Result Comment: PUTT ING UNDER DIFFERENT REQ Performed By: #### L 100.0500, L500.2500 ####[facility] [address] [place], [address] CL Normal 98-107 [facility] Comment on above: Order Comment: 503.2 Result Comment: PUTT ING UNDER DIFFERENT REQ Performed By: #### L 100.0500, L500.2500 ####[facility] [address] [place], [address] CO2 Normal 21.0-32.0 [facility] Comment on above: Order Comment: 503.2 Result Comment: PUTT ING UNDER DIFFERENT REQ Performed By: #### L 100.0500, L500.2500 ####[facility] [address] [place], [address] CREAT,SERUM Normal 0.55-1.02 [facility] Comment on above: Order Comment: 503.2 Result Comment: PUTT ING UNDER DIFFERENT REQ Performed By: #### L 100.0500, L500.2500 ####[facility] [address] [place], [address] eGFR Normal >60 [facility] Comment on above: Order Comment: 503.2 Result Comment: PUTT ING UNDER DIFFERENT REQ Performed By: #### L 100.0500, L500.2500 ####[facility] [address] [place], [address] EST GFR - AA Normal >60 [facility] Comment on above: Order Comment: 503.2 Result Comment: PUTT ING UNDER DIFFERENT REQ Performed By: #### L 100.0500, L500.2500 ####[facility] [address] [place], [address] GAP Normal 5-15 [facility] Comment on above: Order Comment: 503.2 Result Comment: PUTT ING UNDER DIFFERENT REQ Performed By: #### L 100.0500, L500.2500 ####[facility] [address] [place], [address] GLU Normal 74-106 [facility] Comment on above: Order Comment: 503.2 Result Comment: PUTT ING UNDER DIFFERENT REQ Performed By: #### L 100.0500, L500.2500 ####[facility] [address] [place], [address] Potassium Normal 3.5-5.1 [facility] Comment on above: Order Comment: 503.2 Result Comment: PUTT ING UNDER DIFFERENT REQ Performed By: #### L 100.0500, L500.2500 ####[facility] [address] [place], [address] Basic Metabolic Profile (BMP) Normal 136-145 [facility] Comment on above: Order Comment: 503.2 Result Comment: PUTT ING UNDER DIFFERENT REQ Performed By: #### L 100.0500, L500.2500 ####[facility] [address] [place], [address] CBC-Complete Blood Cnt No Di ffon 06-03-2024 Erythrocyte distribution width (RBC) [Ratio] 20.0 % High 11.6-14.6 [facility] Comment on above: Order Comment: 503.2 Performed By: #### L 100.0500, L500.2500 ####[facility] [address] [place], [address] Hematocrit (Bld) [Volume fraction] 33.1 % Low 37-47 [facility] Comment on above: Order Comment: 503.2 Performed By: #### L 100.0500, L500.2500 ####[facility] [address] [place], [address] Hemoglobin (Bld) [Mass/Vol] 10.0 g/dL Low 12.0-15.0 [facility] Comment on above: Order Comment: 503.2 Performed By: #### L 100.0500, L500.2500 ####[facility] [address] [place], [address] MCH (RBC) [Entitic mass] 24.4 pg Low 27.0-32.0 [facility] Comment on above: Order Comment: 503.2 Performed By: #### L 100.0500, L500.2500 ####[facility] [address] [place], [address] MCHC (RBC) [Mass/Vol] 30.2 g/dL Low 32-36 [facility] Comment on above: Order Comment: 503.2 Performed By: #### L 100.0500, L500.2500 ####[facility] [address] [place], [address] MCV (RBC) [Entitic vol] 80.9 fL Low 81-99 [facility] Comment on above: Order Comment: 503.2 Performed By: #### L 100.0500, L500.2500 ####[facility] [address] [place], [address] Platelet mean volume (Bld) [Entitic vol] 9.7 fL Normal 6.2-12.0 [facility] Comment on above: Order Comment: 503.2 Performed By: #### L 100.0500, L500.2500 ####[facility] [address] [place], [address] Platelets (Bld) [#/Vol] 156 10*3/uL Normal 150-450 [facility] Comment on above: Order Comment: 503.2 Performed By: #### L 100.0500, L500.2500 ####[facility] [address] [place], [address] RBC (Bld) [#/Vol] 4.09 10*6/uL Low 4.2-5.4 [facility] Comment on above: Order Comment: 503.2 Performed By: #### L 100.0500, L500.2500 ####[facility] [address] [place], [address] RDW SD 58.8 fl High 35.1-43.9 [facility] Comment on above: Order Comment: 503.2 Performed By: #### L 100.0500, L500.2500 ####[facility] [address] [place], [address] WBC (Bld) [#/Vol] 6.0 10*3/uL Normal 4.4-11.0 [facility] Comment on above: Order Comment: 503.2 Performed By: #### L 100.0500, L500.2500 ####[facility] [address] [place], [address] Erythrocyte distribution wid th ratioOrdered By: Delgado Amaro on 06-03-2024 Erythrocyte distribution width (RBC) [Ratio] 20.0 % High 11.6-14.6 [facility] Erythrocyte distribution wid th standard deviationOrdered By: Delgado Amaro on 06-03-2024 Erythrocyte distribution width (RBC) [Entitic vol] 58.8 fL High 35.1-43.9 [facility] Erythrocyte distribution width (RBC) [Ratio] 58.8 fl High 35.1-43.9 [facility] GFR/1.73 sq M.predicted tanner g non-blacks MDRD (S/P/Bld) [Vol rate/Area]Ordered By: Delgado Amaro on 06-03-2024 Estimated GFR (MDRD) Non-Af Amer 47 Low >60 [facility] Comment on above: mL/min/1.73m2 CKD-EP I Creatinine Equation (2020) Glomerular filtration rate ( GFR) estimation/1.73 sq m using serum, plasma, or whole bOrdered By: Delgado Amaro on 06-03-2024 GFR/1.73 sq M.predicted among non-blacks MDRD (S/P/Bld) [Vol rate/Area] 47 mL/min/{1.73_m2} Low >60 [facility] Comment on above: mL/min/1.73m2 CKD-EP I Creatinine Equation (2020) Result Comment: mL/m in/1.73m2 CKD-EPI Creatinine Equation (2020) Performed By: #### L 500.0846 ####[facility] [address] [place], [address] Hematocrit Auto (Bld) [Volum e fraction]Ordered By: Delgado Amaro on 06-03-2024 Hematocrit (Bld) [Volume fraction] 33.1 % Low 37-47 [facility] Hemoglobin measurementOrdere d By: Delgado Amaro on 06-03-2024 Hemoglobin (Bld) [Mass/Vol] 10.0 g/dL Low 12.0-15.0 [facility] MCV (mean corpuscular volume ) determinationOrdered By: Delgado Amaro on 06-03-2024 MCV (RBC) [Entitic vol] 80.9 fL Low 81-99 [facility] Mean corpuscular hemoglobin (MCH) determinationOrdered By: Delgado Amaro on 06-03-2024 MCH (RBC) [Entitic mass] 24.4 pg Low 27.0-32.0 [facility] Mean corpuscular hemoglobin concentration (MCHC) determinationOrdered By: Delgado Amaro on 06-03-2024 MCHC (RBC) [Mass/Vol] 30.2 g/dL Low 32-36 [facility] Mean platelet volume determi nationOrdered By: Delgado Amaro on 06-03-2024 Platelet mean volume (Bld) [Entitic vol] 9.7 fL 6.2-12.0 [facility] Platelet countOrdered By: Kade Amaro on 06-03-2024 Platelets (Bld) [#/Vol] 156 10*3/uL 150-450 [facility] RBC Auto (Bld) [#/Vol]Ordere d By: Delgado Amaro on 06-03-2024 RBC (Bld) [#/Vol] 4.09 10*6/uL Low 4.2-5.4 [facility] Serum glucose measurement (m ass/volume)Ordered By: Delgado Amaro on 06-03-2024 Glucose [Mass/Vol] 97 mg/dL Normal 70-99 [facility] Comment on above: Performed By: #### L 500.2500 ####[facility] [address] [place], [address] Serum or plasma anion gap de termination (moles/volume)Ordered By: Delgado Amaro on 06-03-2024 Anion gap [Moles/Vol] 10 mmol/L Normal 5-15 [facility] Comment on above: Performed By: #### L 500.2500 ####[facility] [address] [place], [address] Serum or plasma calcium kay urement (mass/volume)Ordered By: Delgado Amaro on 06-03-2024 Calcium [Mass/Vol] 9.3 mg/dL Normal 7.6-11.0 [facility] Comment on above: Performed By: #### L 500.2500 ####[facility] [address] [place], [address] Serum or plasma creatinine m easurement (moles/volume)Ordered By: Delgado Amaro on 06-03-2024 Creatinine [Mass/Vol] 1.2 mg/dL High 0.6-1.0 [facility] Comment on above: Performed By: #### L 500.2500 ####[facility] [address] [place], [address] Creatinine [Moles/Vol] 1.2 mg/dL High 0.6-1.0 [facility] Serum or plasma potassium me asurementOrdered By: Delgado Amaro on 06-03-2024 Potassium [Moles/Vol] 4.4 mmol/L Normal 3.3-5.1 [facility] Comment on above: Performed By: #### L 500.2500 ####[facility] [address] [place], [address] Serum or plasma sodium measu rement (moles/volume)Ordered By: Delgado Amaro on 06-03-2024 Sodium [Moles/Vol] 139 mmol/L Normal 133-145 [facility] Comment on above: Performed By: #### L 500.2500 ####[facility] [address] [place], [address] Serum or plasma urea nitroge n measurement (mass/volume)Ordered By: Delgado Amaro on 06-03-2024 Urea nitrogen [Mass/Vol] 30 mg/dL High 4-19 [facility] Comment on above: Performed By: #### L 500.2500 ####[facility] [address] [place], [address] White blood cell (WBC) count Ordered By: Delgado Amaro on 06-03-2024 WBC (Bld) [#/Vol] 6.0 10*3/uL 4.4-11.0 [facility] Automated blood erythrocyte countOrdered By: April Mullen on 06-02-2024 RBC (Bld) [#/Vol] 4.17 10*6/uL Low 4.2-5.4 [facility] Comment on above: Order Comment: 503.2 Performed By: #### L 500.2500, L100.0500 ####[facility] [address] [place], [address] Automated blood hematocrit ( percentage)Ordered By: April Mullen on 06-02-2024 Hematocrit (Bld) [Volume fraction] 34.0 % Low 37-47 [facility] Comment on above: Order Comment: 503.2 Performed By: #### L 500.2500, L100.0500 ####[facility] [address] [place], [address] Basic Metabolic Profile (BMP )on 06-02-2024 BUN/CRE 21.6 RATIO High 10-20 [facility] Comment on above: Order Comment: 503.2 Performed By: #### L 500.2500, L100.0500 ####[facility] [address] [place], [address] CA,Total 9.1 mg/dL Normal 8.5-10.1 [facility] Comment on above: Order Comment: 503.2 Performed By: #### L 500.2500, L100.0500 ####[facility] [address] [place], [address] EST GFR - AA 54 mL/min Low >60 [facility] Comment on above: Order Comment: 503.2 Result Comment: Afri can Martiniquais GFR Calc Performed By: #### L 500.2500, L100.0500 ####[facility] [address] [place], [address] GAP 4 Low 5-15 [facility] Comment on above: Order Comment: 503.2 Performed By: #### L 500.2500, L100.0500 ####[facility] [address] [place], [address] Blood urea nitrogen (BUN)/cr eatinine ratioOrdered By: April Mullen on 06-02-2024 Urea nitrogen/Creatinine [Mass ratio] 21.6 mg/mg High 10-20 [facility] CBC-Complete Blood Cnt No Di ffon 06-02-2024 RDW SD 58.6 fl High 35.1-43.9 [facility] Comment on above: Order Comment: 503.2 Performed By: #### L 500.2500, L100.0500 ####[facility] [address] [place], [address] Carbon dioxide measurementOr dered By: April Mullen on 06-02-2024 CO2 [Moles/Vol] 33.0 mmol/L High 21.0-32.0 [facility] Comment on above: Order Comment: 503.2 Performed By: #### L 500.2500, L100.0500 ####[facility] [address] [place], [address] Chloride measurementOrdered By: April Mullen on 02-24-2025 Chloride [Moles/Vol] 101 mmol/L Normal 98-107 [facility] Comment on above: Order Comment: 503.2 Performed By: #### L 500.2500, L100.0500 ####[facility] [address] [place], [place], [address] Erythrocyte distribution wid th ratioOrdered By: April Mullen on 06-02-2024 Erythrocyte distribution width (RBC) [Ratio] 20.0 % High 11.6-14.6 [facility] Comment on above: Order Comment: 503.2 Performed By: #### L 500.2500, L100.0500 ####[facility] [address] [place], [place], [address] Erythrocyte distribution wid th standard deviationOrdered By: April Mullen on 06-02-2024 Erythrocyte distribution width (RBC) [Entitic vol] 58.6 fL High 35.1-43.9 [facility] Erythrocyte distribution width (RBC) [Ratio] 58.6 fl High 35.1-43.9 [facility] Estimated glomerular filtrat ion rate (GFR) AmericanOrdered By: April Mullen on 06-02-2024 Estimated GFR (MDRD) Amer 54 mL/min Low >60 [facility] Comment on above: GFR Calc Glomerular filtration rate ( GFR) estimationOrdered By: April Mullen on 06-02-2024 GFR/1.73 sq M.predicted among non-blacks MDRD (S/P/Bld) [Vol rate/Area] 44 mL/min/{1.73_m2} Low >60 [facility] Comment on above: Non- GFR Calc Order Comment: 503.2 Result Comment: Non- GFR Calc Performed By: #### L 500.2500, L100.0500 ####[facility] [address] [place], [place], [address] Estimated GFR (MDRD) Non-Af Amer 44 mL/min Low >60 [facility] Comment on above: Non- GFR Calc Glucose measurementOrdered B y: April Mullen on 06-02-2024 Glucose [Mass/Vol] 101 mg/dL Normal 74-106 [facility] Comment on above: Fasting Glucose resu lt from 100 to 125 mg/dL suggests IMPAIRED HOMEOSTASIS per A.D.A. criteria. Order Comment: 503.2 Result Comment: Fast ing Glucose result from 100 to 125 mg/dLsuggests IMPAIRED HOMEOSTASIS per A.D.A. criteria. Performed By: #### L 500.2500, L100.0500 ####[facility] [address] [place], [address] Hemoglobin measurementOrdere d By: April Mullen on 06-02-2024 Hemoglobin (Bld) [Mass/Vol] 10.2 g/dL Low 12.0-15.0 [facility] Comment on above: Order Comment: 503.2 Performed By: #### L 500.2500, L100.0500 ####[facility] [address] [place], [address] MCV (mean corpuscular volume ) determinationOrdered By: April Mullen on 06-02-2024 MCV (RBC) [Entitic vol] 81.5 fL Normal 81-99 [facility] Comment on above: Order Comment: 503.2 Performed By: #### L 500.2500, L100.0500 ####[facility] [address] [place], [address] Mean corpuscular hemoglobin (MCH) determinationOrdered By: April Mullen on 06-02-2024 MCH (RBC) [Entitic mass] 24.5 pg Low 27.0-32.0 [facility] Comment on above: Order Comment: 503.2 Performed By: #### L 500.2500, L100.0500 ####[facility] [address] [place], [address] Mean corpuscular hemoglobin concentration (MCHC) determinationOrdered By: April Mullen on 06-02-2024 MCHC (RBC) [Mass/Vol] 30.0 g/dL Low 32-36 [facility] Comment on above: Order Comment: 503.2 Performed By: #### L 500.2500, L100.0500 ####[facility] [address] [place], [address] Mean platelet volume determi nationOrdered By: April Mullen on 06-02-2024 Platelet mean volume (Bld) [Entitic vol] 9.8 fL Normal 6.2-12.0 [facility] Comment on above: Order Comment: 503.2 Performed By: #### L 500.2500, L100.0500 ####[facility] [address] [place], [address] Platelet countOrdered By: Darvin Mullen on 06-02-2024 Platelets (Bld) [#/Vol] 174 10*3/uL Normal 150-450 [facility] Comment on above: Order Comment: 503.2 Performed By: #### L 500.2500, L100.0500 ####[facility] [address] [place], [address] Potassium measurementOrdered By: April Mullen on 06-02-2024 Potassium [Moles/Vol] 4.2 mmol/L Normal 3.5-5.1 [facility] Comment on above: Order Comment: 503.2 Performed By: #### L 500.2500, L100.0500 ####[facility] [address] [place], [address] Serum anion gap measurementO rdered By: April Mullen on 06-02-2024 Anion gap [Moles/Vol] 4 mmol/L Low 5-15 [facility] Serum or plasma calcium kay urement (mass/volume)Ordered By: April Mullen on 06-02-2024 Calcium [Mass/Vol] 9.1 mg/dL 8.5-10.1 [facility] Serum or plasma creatinine m easurement (mass/volume)Ordered By: April Mullen on 06-02-2024 Creatinine [Mass/Vol] 1.25 mg/dL High 0.55-1.02 [facility] Comment on above: The validity of the calculated GFR & GFRAA in patients over 70 years has not been determined. Clinical correlation is essential. Order Comment: 503.2 Result Comment: The validity of the calculated GFR GFRAA in patients over70 years has not been determined. Clinical correlation isessential. Performed By: #### L 500.2500, L100.0500 ####[facility] [address], [address] Serum or plasma urea nitroge n measurement (mass/volume)Ordered By: April Mullen on 06-02-2024 Urea nitrogen [Mass/Vol] 27 mg/dL High - [facility] Comment on above: Order Comment: 503.2 Performed By: #### L 500.2500, L100.0500 ####[facility] [address] [place], [address] Sodium levelOrdered By: Yair Mullen on 06-02-2024 Sodium [Moles/Vol] 138 mmol/L Normal 136-145 [facility] Comment on above: Order Comment: 503.2 Performed By: #### L 500.2500, L100.0500 ####[facility] [address] [place], [address] White blood cell (WBC) count Ordered By: April Mullen on 06-02-2024 WBC (Bld) [#/Vol] 6.4 10*3/uL Normal 4.4-11.0 [facility] Comment on above: Order Comment: 503.2 Performed By: #### L 500.2500, L100.0500 ####[facility] [address] [place], [address] Basic Metabolic Profile (BMP )on 05-27-2024 BUN/CRE 20.0 RATIO Normal 10-20 [facility] Comment on above: Order Comment: 503.2 Performed By: #### L 500.2500, L100.0500, L100.4500 ####[facility] [address] [place], [address] CA,Total 8.7 mg/dL Normal 8.5-10.1 [facility] Comment on above: Order Comment: 503.2 Performed By: #### L 500.2500, L100.0500, L100.4500 ####[facility] [address] [place], [address] Chloride [Moles/Vol] 104 mmol/L Normal 98-107 [facility] Comment on above: Order Comment: 503.2 Performed By: #### L 500.2500, L100.0500, L100.4500 ####[facility] [address] [place], [address] CO2 [Moles/Vol] 30.0 mmol/L Normal 21.0-32.0 [facility] Comment on above: Order Comment: 503.2 Performed By: #### L 500.2500, L100.0500, L100.4500 ####[facility] [address] [place], [address] Creatinine [Mass/Vol] 1.25 mg/dL High 0.55-1.02 [facility] Comment on above: Order Comment: 503.2 Result Comment: The validity of the calculated GFR GFRAA in patients over70 years has not been determined. Clinical correlation isessential. Performed By: #### L 500.2500, L100.0500, L100.4500 ####[facility] [address] [place], [address] EST GFR - AA 54 mL/min Low >60 [facility] Comment on above: Order Comment: 503.2 Result Comment: Afri can Martiniquais GFR Calc Performed By: #### L 500.2500, L100.0500, L100.4500 ####[facility] [address] [place], [address] GAP 7 Normal 5-15 [facility] Comment on above: Order Comment: 503.2 Performed By: #### L 500.2500, L100.0500, L100.4500 ####[facility] [address] [place], [address] GFR/1.73 sq M.predicted among non-blacks MDRD (S/P/Bld) [Vol rate/Area] 44 mL/min/{1.73_m2} Low >60 [facility] Comment on above: Order Comment: 503.2 Result Comment: Non- GFR Calc Performed By: #### L 500.2500, L100.0500, L100.4500 ####[facility] [address] [place], [address] Glucose [Mass/Vol] 101 mg/dL Normal 74-106 [facility] Comment on above: Order Comment: 503.2 Result Comment: Fast ing Glucose result from 100 to 125 mg/dLsuggests IMPAIRED HOMEOSTASIS per A.D.A. criteria. Performed By: #### L 500.2500, L100.0500, L100.4500 ####[facility] [address] [place], [address] Potassium [Moles/Vol] 3.7 mmol/L Normal 3.5-5.1 [facility] Comment on above: Order Comment: 503.2 Performed By: #### L 500.2500, L100.0500, L100.4500 ####[facility] [address] [place], [address] Sodium [Moles/Vol] 141 mmol/L Normal 136-145 [facility] Comment on above: Order Comment: 503.2 Performed By: #### L 500.2500, L100.0500, L100.4500 ####[facility] [address] [place], [address] Urea nitrogen [Mass/Vol] 25 mg/dL High 7-18 [facility] Comment on above: Order Comment: 503.2 Performed By: #### L 500.2500, L100.0500, L100.4500 ####[facility] [address] [place], [address] Blood manual differential co mment interpretation (narrative result)Ordered By: April Mullen on 05-27-2024 Manual differential comment Jd (Bld) [Interp] See comment [facility] Comment on above: 1+ ANISOCYTOSIS1+ OV ALOCYTESSLIGHTLY DECREASED PLATELETS Blood urea nitrogen (BUN)/cr eatinine ratioOrdered By: April Mullen on 05-27-2024 Urea nitrogen/Creatinine [Mass ratio] 20.0 mg/mg 10- [facility] CBC-Complete Blood Cnt No Di ffon 05-27-2024 Erythrocyte distribution width (RBC) [Ratio] 20.2 % High 11.6-14.6 [facility] Comment on above: Order Comment: 503.2 Performed By: #### L 500.2500, L100.0500, L100.4500 ####[facility] [address] [place], [address] Hematocrit (Bld) [Volume fraction] 35.3 % Low 37-47 [facility] Comment on above: Order Comment: 503.2 Performed By: #### L 500.2500, L100.0500, L100.4500 ####[facility] [address] [place], [address] Hemoglobin (Bld) [Mass/Vol] 10.5 g/dL Low 12.0-15.0 [facility] Comment on above: Order Comment: 503.2 Performed By: #### L 500.2500, L100.0500, L100.4500 ####[facility] [address] [place], [address] MCH (RBC) [Entitic mass] 24.0 pg Low 27.0-32.0 [facility] Comment on above: Order Comment: 503.2 Performed By: #### L 500.2500, L100.0500, L100.4500 ####[facility] [address] [place], [address] MCHC (RBC) [Mass/Vol] 29.7 g/dL Low 32-36 [facility] Comment on above: Order Comment: 503.2 Performed By: #### L 500.2500, L100.0500, L100.4500 ####[facility] [address] [place], [address] MCV (RBC) [Entitic vol] 80.6 fL Low 81-99 [facility] Comment on above: Order Comment: 503.2 Performed By: #### L 500.2500, L100.0500, L100.4500 ####[facility] [address] [place], [address] Platelet mean volume (Bld) [Entitic vol] 9.2 fL Normal 6.2-12.0 [facility] Comment on above: Order Comment: 503.2 Performed By: #### L 500.2500, L100.0500, L100.4500 ####[facility] [address] [place], [address] Platelets (Bld) [#/Vol] 149 10*3/uL Low 150-450 [facility] Comment on above: Order Comment: 503.2 Performed By: #### L 500.2500, L100.0500, L100.4500 ####[facility] [address] [place], [address] RBC (Bld) [#/Vol] 4.38 10*6/uL Normal 4.2-5.4 [facility] Comment on above: Order Comment: 503.2 Performed By: #### L 500.2500, L100.0500, L100.4500 ####[facility] [address] [place], [address] RDW SD 58.6 fl High 35.1-43.9 [facility] Comment on above: Order Comment: 503.2 Performed By: #### L 500.2500, L100.0500, L100.4500 ####[facility] [address] [place], [address] WBC (Bld) [#/Vol] 5.3 10*3/uL Normal 4.4-11.0 [facility] Comment on above: Order Comment: 503.2 Performed By: #### L 500.2500, L100.0500, L100.4500 ####[facility] [address] [place], [address] Carbon dioxide measurementOr dered By: April Mullen on 05-27-2024 CO2 [Moles/Vol] 30.0 mmol/L 21.0-32.0 [facility] Chloride measurementOrdered By: April Mullen on 05-27-2024 Chloride [Moles/Vol] 104 mmol/L 98-107 [facility] Differential Commenton 05-27 SMEAR COMMENT Normal [facility] Comment on above: Order Comment: 503.2 Result Comment: 1+ A NISOCYTOSIS1+ OVALOCYTESSLIGHTLY DECREASED PLATELETS Performed By: #### L 500.2500, L100.0500, L100.4500 ####[facility] [address] [place], [address] Erythrocyte distribution wid th ratioOrdered By: April Mullen on 05-27-2024 Erythrocyte distribution width (RBC) [Ratio] 20.2 % High 11.6-14.6 [facility] Erythrocyte distribution wid th standard deviationOrdered By: April Mullen on 05-27-2024 Erythrocyte distribution width (RBC) [Entitic vol] 58.6 fL High 35.1-43.9 [facility] Erythrocyte distribution width (RBC) [Ratio] 58.6 fl High 35.1-43.9 [facility] Estimated glomerular filtrat ion rate (GFR) AmericanOrdered By: April Mullen on 05-27-2024 Estimated GFR (MDRD) Amer 54 mL/min Low >60 [facility] Comment on above: GFR Calc Glomerular filtration rate ( GFR) estimationOrdered By: April Mullen on 05-27-2024 Estimated GFR (MDRD) Non-Af Amer 44 mL/min Low >60 [facility] Comment on above: Non- GFR Calc GFR/1.73 sq M.predicted among non-blacks MDRD (S/P/Bld) [Vol rate/Area] 44 mL/min/{1.73_m2} Low >60 [facility] Comment on above: Non- GFR Calc Glucose measurementOrdered B y: April Mullen on 05-27-2024 Glucose [Mass/Vol] 101 mg/dL 74-106 [facility] Comment on above: Fasting Glucose resu lt from 100 to 125 mg/dL suggests IMPAIRED HOMEOSTASIS per A.D.A. criteria. Hematocrit Auto (Bld) [Volum e fraction]Ordered By: April Mullen on 05-27-2024 Hematocrit (Bld) [Volume fraction] 35.3 % Low 37-47 [facility] Hemoglobin measurementOrdere d By: April Mullen on 05-27-2024 Hemoglobin (Bld) [Mass/Vol] 10.5 g/dL Low 12.0-15.0 [facility] MCV (mean corpuscular volume ) determinationOrdered By: April Mullen on 05-27-2024 MCV (RBC) [Entitic vol] 80.6 fL Low 81-99 [facility] Manual differential comment Jd (Bld) [Interp]Ordered By: April Mullen on 05-27-2024 Differential Comment See comment [facility] Comment on above: 1+ ANISOCYTOSIS1+ OV ALOCYTESSLIGHTLY DECREASED PLATELETS Mean corpuscular hemoglobin (MCH) determinationOrdered By: April Mullen on 05-27-2024 MCH (RBC) [Entitic mass] 24.0 pg Low 27.0-32.0 [facility] Mean corpuscular hemoglobin concentration (MCHC) determinationOrdered By: April Mullen on 05-27-2024 MCHC (RBC) [Mass/Vol] 29.7 g/dL Low 32-36 [facility] Mean platelet volume determi nationOrdered By: April Mullen on 05-27-2024 Platelet mean volume (Bld) [Entitic vol] 9.2 fL 6.2-12.0 [facility] Platelet countOrdered By: Darvin Mullen on 05-27-2024 Platelets (Bld) [#/Vol] 149 10*3/uL Low 150-450 [facility] Potassium measurementOrdered By: April Mullen on 05-27-2024 Potassium [Moles/Vol] 3.7 mmol/L 3.5-5.1 [facility] RBC Auto (Bld) [#/Vol]Ordere d By: April Mullen on 05-27-2024 RBC (Bld) [#/Vol] 4.38 10*6/uL 4.2-5.4 [facility] Serum anion gap measurementO rdered By: April Mullen on 05-27-2024 Anion gap [Moles/Vol] 7 mmol/L 5-15 [facility] Serum or plasma calcium kay urement (mass/volume)Ordered By: April Mullen on 05-27-2024 Calcium [Mass/Vol] 8.7 mg/dL 8.5-10.1 [facility] Serum or plasma creatinine m easurement (mass/volume)Ordered By: April Mullen on 05-27-2024 Creatinine [Mass/Vol] 1.25 mg/dL High 0.55-1.02 [facility] Comment on above: The validity of the calculated GFR & GFRAA in patients over 70 years has not been determined. Clinical correlation is essential. Serum or plasma urea nitroge n measurement (mass/volume)Ordered By: April Mullen on 05-27-2024 Urea nitrogen [Mass/Vol] 25 mg/dL High 7-18 [facility] Sodium levelOrdered By: Yair Mullen on 05-27-2024 Sodium [Moles/Vol] 141 mmol/L 136-145 [facility] White blood cell (WBC) count Ordered By: April Mullen on 05-27-2024 WBC (Bld) [#/Vol] 5.3 10*3/uL 4.4-11.0 [facility] 92-XP-Pzrrjha DOrdered By: Selina Amaro on 05-12-2024 Vitamin D 25-Hydroxy 41.0 ng/mL [facility] Comment on above: Vitamin D 25(OH) Sta tus Range Deficiency <20 ng/mL (50nmol/L) Insufficiency 20 - 30 ng/mL (50 - 75 nmol/L) Sufficiency 30 - 100 ng/mL (75 - 250 nmol/L) Toxicity >100 ng/mL (>250 nmol/L) Albumin to globulin ratioOrd ered By: Delgado Amaro on 05-12-2024 Albumin/Globulin [Mass ratio] 0.7 {ratio} Low 0.9-2.4 [facility] BNP (brain natriuretic pepti de measurement)Ordered By: Delgado Amaro on 05-12-2024 Natriuretic peptide B (Bld) [Mass/Vol] 403.6 pg/mL High 0-100 [facility] Comment on above: Performed By: #### L 100.0500, L506.1000, L100.4500, L500.4050, L503.6620 ####[facility] [address] [place], [place], [address] Bilirubin, totalOrdered By: Delgado Amaro on 05-12-2024 Bilirubin [Mass/Vol] 0.20 mg/dL 0.20-1.00 [facility] Comment on above: For patients on eltr ombopag therapy, use of Dimension Bosworth TBIL is not recommended. Blood manual differential co mment interpretation (narrative result)Ordered By: Delgado Amaro on 05-12-2024 Manual differential comment Jd (Bld) [Interp] COMMENT [facility] Comment on above: 1+ ANISO. Blood urea nitrogen (BUN)/cr eatinine ratioOrdered By: Delgado Amaro on 05-12-2024 Urea nitrogen/Creatinine [Mass ratio] 26.5 mg/mg High 10-20 [facility] CBC-Complete Blood Cnt No Di ffon 05-12-2024 Erythrocyte distribution width (RBC) [Ratio] 20.8 % High 11.6-14.6 [facility] Comment on above: Performed By: #### L 100.0500, L506.1000, L100.4500, L500.4050, L503.6620 ####[facility] [address] [place], [address] Hematocrit (Bld) [Volume fraction] 31.4 % Low 37-47 [facility] Comment on above: Performed By: #### L 100.0500, L506.1000, L100.4500, L500.4050, L503.6620 ####[facility] [address] [place], [address] Hemoglobin (Bld) [Mass/Vol] 9.2 g/dL Low 12.0-15.0 [facility] Comment on above: Performed By: #### L 100.0500, L506.1000, L100.4500, L500.4050, L503.6620 ####[facility] [address] [place], [address] MCH (RBC) [Entitic mass] 23.8 pg Low 27.0-32.0 [facility] Comment on above: Performed By: #### L 100.0500, L506.1000, L100.4500, L500.4050, L503.6620 ####[facility] [address] [place], [address] MCHC (RBC) [Mass/Vol] 29.3 g/dL Low 32-36 [facility] Comment on above: Performed By: #### L 100.0500, L506.1000, L100.4500, L500.4050, L503.6620 ####[facility] [address] [place], [address] MCV (RBC) [Entitic vol] 81.3 fL Normal 81-99 [facility] Comment on above: Performed By: #### L 100.0500, L506.1000, L100.4500, L500.4050, L503.6620 ####[facility] [address] [place], [address] Platelet mean volume (Bld) [Entitic vol] 9.5 fL Normal 6.2-12.0 [facility] Comment on above: Performed By: #### L 100.0500, L506.1000, L100.4500, L500.4050, L503.6620 ####[facility] [address] [place], [address] Platelets (Bld) [#/Vol] 164 10*3/uL Normal 150-450 [facility] Comment on above: Performed By: #### L 100.0500, L506.1000, L100.4500, L500.4050, L503.6620 ####[facility] [address] [place], [address] RBC (Bld) [#/Vol] 3.86 10*6/uL Low 4.2-5.4 [facility] Comment on above: Performed By: #### L 100.0500, L506.1000, L100.4500, L500.4050, L503.6620 ####[facility] [address] [place], [address] RDW SD 60.6 fl High 35.1-43.9 [facility] Comment on above: Performed By: #### L 100.0500, L506.1000, L100.4500, L500.4050, L503.6620 ####[facility] [address] [place], [address] WBC (Bld) [#/Vol] 5.6 10*3/uL Normal 4.4-11.0 [facility] Comment on above: Performed By: #### L 100.0500, L506.1000, L100.4500, L500.4050, L503.6620 ####[facility] [address] [place], [address] Carbon dioxide measurementOr dered By: Delgado Amaro on 05-12-2024 CO2 [Moles/Vol] 30.0 mmol/L 21.0-32.0 [facility] Chloride measurementOrdered By: Delgado Amaro on 05-12-2024 Chloride [Moles/Vol] 103 mmol/L 98-107 [facility] Comprehensive Metabolic Prof ilon 05-12-2024 Albumin [Mass/Vol] 2.6 g/dL Low 3.2-5.0 [facility] Comment on above: Performed By: #### L 100.0500, L506.1000, L100.4500, L500.4050, L503.6620 ####[facility] [address] [place], [address] Albumin/Globulin [Mass ratio] 0.7 {ratio} Low 0.9-2.4 [facility] Comment on above: Performed By: #### L 100.0500, L506.1000, L100.4500, L500.4050, L503.6620 ####[facility] [address] [place], [address] ALK P 109 U/L Normal 45-117 [facility] Comment on above: Performed By: #### L 100.0500, L506.1000, L100.4500, L500.4050, L503.6620 ####[facility] [address] [place], [address] ALT [Catalytic activity/Vol] 14 U/L Normal 13-56 [facility] Comment on above: Performed By: #### L 100.0500, L506.1000, L100.4500, L500.4050, L503.6620 ####[facility] [address] [place], [address] AST [Catalytic activity/Vol] 20 U/L Normal 15-37 [facility] Comment on above: Performed By: #### L 100.0500, L506.1000, L100.4500, L500.4050, L503.6620 ####[facility] [address] [place], [address] Bilirubin [Mass/Vol] 0.20 mg/dL Normal 0.20-1.00 [facility] Comment on above: Result Comment: For patients on eltrombopag therapy, use of Dimension Bosworth TBIL is not recommended. Performed By: #### L 100.0500, L506.1000, L100.4500, L500.4050, L503.6620 ####[facility] [address] [place], [address] BUN/CRE 26.5 RATIO High 10-20 [facility] Comment on above: Performed By: #### L 100.0500, L506.1000, L100.4500, L500.4050, L503.6620 ####[facility] [address] [place], [address] CA,Total 9.0 mg/dL Normal 8.5-10.1 [facility] Comment on above: Performed By: #### L 100.0500, L506.1000, L100.4500, L500.4050, L503.6620 ####[facility] [address] [place], [address] Chloride [Moles/Vol] 103 mmol/L Normal 98-107 [facility] Comment on above: Performed By: #### L 100.0500, L506.1000, L100.4500, L500.4050, L503.6620 ####[facility] [address] [place], [address] CO2 [Moles/Vol] 30.0 mmol/L Normal 21.0-32.0 [facility] Comment on above: Performed By: #### L 100.0500, L506.1000, L100.4500, L500.4050, L503.6620 ####[facility] [address] [place], [address] Creatinine [Mass/Vol] 1.13 mg/dL High 0.55-1.02 [facility] Comment on above: Result Comment: The validity of the calculated GFR GFRAA in patients over70 years has not been determined. Clinical correlation isessential. Performed By: #### L 100.0500, L506.1000, L100.4500, L500.4050, L503.6620 ####[facility] [address] [place], [address] EST GFR - AA 60 mL/min Normal >60 [facility] Comment on above: Result Comment: Afri can Martiniquais GFR Calc Performed By: #### L 100.0500, L506.1000, L100.4500, L500.4050, L503.6620 ####[facility] [address] [place], [address] GAP 7 Normal 5-15 [facility] Comment on above: Performed By: #### L 100.0500, L506.1000, L100.4500, L500.4050, L503.6620 ####[facility] [address] [place], [address] GFR/1.73 sq M.predicted among non-blacks MDRD (S/P/Bld) [Vol rate/Area] 50 mL/min/{1.73_m2} Low >60 [facility] Comment on above: Result Comment: Non- GFR Calc Performed By: #### L 100.0500, L506.1000, L100.4500, L500.4050, L503.6620 ####[facility] [address] [place], [address] Globulin (S) [Mass/Vol] 3.8 g/dL Normal 2.2-4.2 [facility] Comment on above: Performed By: #### L 100.0500, L506.1000, L100.4500, L500.4050, L503.6620 ####[facility] [address] [place], [address] Glucose [Mass/Vol] 97 mg/dL Normal 74-106 [facility] Comment on above: Performed By: #### L 100.0500, L506.1000, L100.4500, L500.4050, L503.6620 ####[facility] [address] [place], [address] Potassium [Moles/Vol] 3.6 mmol/L Normal 3.5-5.1 [facility] Comment on above: Performed By: #### L 100.0500, L506.1000, L100.4500, L500.4050, L503.6620 ####[facility] [address] [place], [address] Sodium [Moles/Vol] 140 mmol/L Normal 136-145 [facility] Comment on above: Performed By: #### L 100.0500, L506.1000, L100.4500, L500.4050, L503.6620 ####[facility] [address] [place], [address] T PROT 6.4 g/dL Normal 6.4-8.2 [facility] Comment on above: Performed By: #### L 100.0500, L506.1000, L100.4500, L500.4050, L503.6620 ####[facility] [address] [place], [address] Urea nitrogen [Mass/Vol] 30 mg/dL High 7-18 [facility] Comment on above: Performed By: #### L 100.0500, L506.1000, L100.4500, L500.4050, L503.6620 ####[facility] [address] [place], [address] Differential Commenton 05-12 SMEAR COMMENT COMMENT Normal [facility] Comment on above: Result Comment: 1+ A NISO. Performed By: #### L 100.0500, L506.1000, L100.4500, L500.4050, L503.6620 ####[facility] [address] [place], [address] Erythrocyte distribution wid th ratioOrdered By: Delgado Amaro on 05-12-2024 Erythrocyte distribution width (RBC) [Ratio] 20.8 % High 11.6-14.6 [facility] Erythrocyte distribution wid th standard deviationOrdered By: Delgado Amaro on 05-12-2024 Erythrocyte distribution width (RBC) [Entitic vol] 60.6 fL High 35.1-43.9 [facility] Erythrocyte distribution width (RBC) [Ratio] 60.6 fl High 35.1-43.9 [facility] Estimated glomerular filtrat ion rate (GFR) AmericanOrdered By: Delgado Amaro on 05-12-2024 Estimated GFR (MDRD) Amer 60 mL/min >60 [facility] Comment on above: GFR Calc Glomerular filtration rate ( GFR) estimationOrdered By: Delgado Amaro on 05-12-2024 Estimated GFR (MDRD) Non-Af Amer 50 mL/min Low >60 [facility] Comment on above: Non- GFR Calc GFR/1.73 sq M.predicted among non-blacks MDRD (S/P/Bld) [Vol rate/Area] 50 mL/min/{1.73_m2} Low >60 [facility] Comment on above: Non- GFR Calc Glucose measurementOrdered B y: Delgado Amaro on 05-12-2024 Glucose [Mass/Vol] 97 mg/dL 74-106 [facility] Hematocrit Auto (Bld) [Volum e fraction]Ordered By: Delgado Amaro on 05-12-2024 Hematocrit (Bld) [Volume fraction] 31.4 % Low 37-47 [facility] Hemoglobin measurementOrdere d By: Delgado Amaro on 05-12-2024 Hemoglobin (Bld) [Mass/Vol] 9.2 g/dL Low 12.0-15.0 [facility] Laboratory - Chemistry and C hemistry - challengeOrdered By: Delgado Amaro on 05-12-2024 AST [Catalytic activity/Vol] 20 U/L 15-37 [facility] MCV (mean corpuscular volume ) determinationOrdered By: Delgado Amaro on 05-12-2024 MCV (RBC) [Entitic vol] 81.3 fL 81-99 [facility] Manual differential comment Jd (Bld) [Interp]Ordered By: Delgado Amaro on 05-12-2024 Differential Comment COMMENT [facility] Comment on above: 1+ ANISO. Mean corpuscular hemoglobin (MCH) determinationOrdered By: Delgado Amaro on 05-12-2024 MCH (RBC) [Entitic mass] 23.8 pg Low 27.0-32.0 [facility] Mean corpuscular hemoglobin concentration (MCHC) determinationOrdered By: Delgado Amaro on 05-12-2024 MCHC (RBC) [Mass/Vol] 29.3 g/dL Low 32-36 [facility] Mean platelet volume determi nationOrdered By: Delgado Amaro on 05-12-2024 Platelet mean volume (Bld) [Entitic vol] 9.5 fL 6.2-12.0 [facility] Platelet countOrdered By: Kade Amaro on 05-12-2024 Platelets (Bld) [#/Vol] 164 10*3/uL 150-450 [facility] Potassium measurementOrdered By: Delgado Amaro on 05-12-2024 Potassium [Moles/Vol] 3.6 mmol/L 3.5-5.1 [facility] RBC Auto (Bld) [#/Vol]Ordere d By: Delgado Amaro on 05-12-2024 RBC (Bld) [#/Vol] 3.86 10*6/uL Low 4.2-5.4 [facility] Serum anion gap measurementO rdered By: Delgado Amaro on 05-12-2024 Anion gap [Moles/Vol] 7 mmol/L 5-15 [facility] Serum globulin measurementOr dered By: Delgado Amaro on 05-12-2024 Globulin (S) [Mass/Vol] 3.8 g/dL 2.2-4.2 [facility] Serum or plasma alanine sousa otransferase (ALT) measurementOrdered By: Delgado Amaro on 05-12-2024 ALT [Catalytic activity/Vol] 14 U/L 13-56 [facility] Serum or plasma albumin kay urement (mass/volume)Ordered By: Delgado Amaro on 05-12-2024 Albumin [Mass/Vol] 2.6 g/dL Low 3.2-5.0 [facility] Serum or plasma alkaline radha sphatase measurementOrdered By: Delgado Amaro on 05-12-2024 ALP [Catalytic activity/Vol] 109 U/L 45-117 [facility] Serum or plasma calcium kay urement (mass/volume)Ordered By: Delgado Amaro on 05-12-2024 Calcium [Mass/Vol] 9.0 mg/dL 8.5-10.1 [facility] Serum or plasma creatinine m easurement (mass/volume)Ordered By: Delgado Amaro on 05-12-2024 Creatinine [Mass/Vol] 1.13 mg/dL High 0.55-1.02 [facility] Comment on above: The validity of the calculated GFR & GFRAA in patients over 70 years has not been determined. Clinical correlation is essential. Serum or plasma urea nitroge n measurement (mass/volume)Ordered By: Delgado Amaro on 05-12-2024 Urea nitrogen [Mass/Vol] 30 mg/dL High 7-18 [facility] Sodium levelOrdered By: Dimitry Amaro on 05-12-2024 Sodium [Moles/Vol] 140 mmol/L 136-145 [facility] Total proteinOrdered By: Bill Amaro on 05-12-2024 Protein [Mass/Vol] 6.4 g/dL 6.4-8.2 [facility] Vitamin D,25 Hydroxyon 05-12 Vitamin D 25-OH 41.0 ng/mL Normal [facility] Comment on above: Result Comment: Ele min D 25(OH) Status Range Deficiency <20 ng/mL (50nmol/L) Insufficiency 20 - 30 ng/mL (50 - 75 nmol/L) Sufficiency 30 - 100 ng/mL (75 - 250 nmol/L) Toxicity >100 ng/mL (>250 nmol/L) Performed By: #### L 100.0500, L506.1000, L100.4500, L500.4050, L503.6620 ####[facility] [address] [place], [address] White blood cell (WBC) count Ordered By: Delgado Amaro on 05-12-2024 WBC (Bld) [#/Vol] 5.6 10*3/uL 4.4-11.0 [facility] Gastroenterology Visit Repor ton 04-28-2024 Gastroenterology Visit Report Normal [facility] CBC-Complete Blood Cnt No Di ffon 04-14-2024 Erythrocyte distribution width (RBC) [Ratio] 16.0 % High 11.6-14.6 [facility] Comment on above: Performed By: #### L 503.6075, L100.0500, L503.6150, L503.6550 ####[facility] [address] [place], [address] Hematocrit (Bld) [Volume fraction] 26.3 % Low 37-47 [facility] Comment on above: Performed By: #### L 503.6075, L100.0500, L503.6150, L503.6550 ####[facility] [address] [place], [address] Hemoglobin (Bld) [Mass/Vol] 7.7 g/dL Low 12.0-15.0 [facility] Comment on above: Performed By: #### L 503.6075, L100.0500, L503.6150, L503.6550 ####[facility] [address] [place], [address] MCH (RBC) [Entitic mass] 22.8 pg Low 27.0-32.0 [facility] Comment on above: Performed By: #### L 503.6075, L100.0500, L503.6150, L503.6550 ####[facility] [address] [place], [address] MCHC (RBC) [Mass/Vol] 29.3 g/dL Low 32-36 [facility] Comment on above: Performed By: #### L 503.6075, L100.0500, L503.6150, L503.6550 ####[facility] [address] [place], [address] MCV (RBC) [Entitic vol] 78.0 fL Low 81-99 [facility] Comment on above: Performed By: #### L 503.6075, L100.0500, L503.6150, L503.6550 ####[facility] [address] [place], [address] Platelet mean volume (Bld) [Entitic vol] 10.0 fL Normal 6.2-12.0 [facility] Comment on above: Performed By: #### L 503.6075, L100.0500, L503.6150, L503.6550 ####[facility] [address] [place], [address] Platelets (Bld) [#/Vol] 225 10*3/uL Normal 150-450 [facility] Comment on above: Performed By: #### L 503.6075, L100.0500, L503.6150, L503.6550 ####[facility] [address] [place], [address] RBC (Bld) [#/Vol] 3.37 10*6/uL Low 4.2-5.4 [facility] Comment on above: Performed By: #### L 503.6075, L100.0500, L503.6150, L503.6550 ####[facility] [address] [place], [address] RDW SD 45.4 fl High 35.1-43.9 [facility] Comment on above: Performed By: #### L 503.6075, L100.0500, L503.6150, L503.6550 ####[facility] [address] [place], [place], [address] WBC (Bld) [#/Vol] 7.3 10*3/uL Normal 4.4-11.0 [facility] Comment on above: Performed By: #### L 503.6075, L100.0500, L503.6150, L503.6550 ####[facility] [address] [place], [place], [address] Erythrocyte distribution wid th ratioOrdered By: April Mullen on 04-14-2024 Erythrocyte distribution width (RBC) [Ratio] 16.0 % High 11.6-14.6 [facility] Erythrocyte distribution wid th standard deviationOrdered By: April Mullen on 04-14-2024 Erythrocyte distribution width (RBC) [Entitic vol] 45.4 fL High 35.1-43.9 [facility] Ferritinon 04-14-2024 Ferritin [Mass/Vol] 162 ng/mL Normal [facility] Comment on above: Order Comment: 503.2 Performed By: #### L 503.6075, L100.0500, L503.6150, L503.6550 ####[facility] [address] [place], [place], [address] Ferritin measurementOrdered By: April Mullen on 04-14-2024 Ferritin [Mass/Vol] 162 ng/mL [facility] Hematocrit Auto (Bld) [Volum e fraction]Ordered By: April Mullen on 04-14-2024 Hematocrit (Bld) [Volume fraction] 26.3 % Low 37-47 [facility] Hemoglobin measurementOrdere d By: April Mullen on 04-14-2024 Hemoglobin (Bld) [Mass/Vol] 7.7 g/dL Low 12.0-15.0 [facility] Ironon 04-14-2024 Iron [Mass/Vol] 17 ug/dL Low 50-170 [facility] Comment on above: Order Comment: 503.2 Performed By: #### L 503.6075, L100.0500, L503.6150, L503.6550 ####[facility] [address] [place], [place], [phone] Iron (Unsp spec) [Mass/Mass] Ordered By: April Mullen on 04-14-2024 Iron [Mass/Vol] 17 ug/dL Low 50-170 [facility] Iron Binding Capacity,Totalo n 04-14-2024 TIBC 286 ug/dL Normal 250-450 [facility] Comment on above: Order Comment: 503.2 Performed By: #### L 503.6075, L100.0500, L503.6150, L503.6550 ####[facility] [address] [place], [place], [address] MCV (mean corpuscular volume ) determinationOrdered By: April Mullen on 04-14-2024 MCV (RBC) [Entitic vol] 78.0 fL Low 81-99 [facility] Mean corpuscular hemoglobin (MCH) determinationOrdered By: April Mullen on 04-14-2024 MCH (RBC) [Entitic mass] 22.8 pg Low 27.0-32.0 [facility] Mean corpuscular hemoglobin concentration (MCHC) determinationOrdered By: April Mullen on 04-14-2024 MCHC (RBC) [Mass/Vol] 29.3 g/dL Low 32-36 [facility] Mean platelet volume determi nationOrdered By: April Mullen on 04-14-2024 Platelet mean volume (Bld) [Entitic vol] 10.0 fL 6.2-12.0 [facility] Platelet countOrdered By: Darvin Mullen on 04-14-2024 Platelets (Bld) [#/Vol] 225 10*3/uL 150-450 [facility] RBC Auto (Bld) [#/Vol]Ordere d By: April Mullen on 04-14-2024 RBC (Bld) [#/Vol] 3.37 10*6/uL Low 4.2-5.4 [facility] TIBCOrdered By: April Mullen on 04-14-2024 Total Iron Binding Capacity 286 ug/dL 250-450 [facility] White blood cell (WBC) count Ordered By: April Mullen on 04-14-2024 WBC (Bld) [#/Vol] 7.3 10*3/uL 4.4-11.0 [facility] Automated blood erythrocyte countOrdered By: April Mullen on 04-07-2024 RBC (Bld) [#/Vol] 3.28 10*6/uL Low 4.2-5.4 [facility] Comment on above: Order Comment: 503-2 Performed By: #### Hola MAGALLON, L100.0500 ####[facility] [address] [place], [place], [address] Automated blood hematocrit ( percentage)Ordered By: April Mullen on 04-07-2024 Hematocrit (Bld) [Volume fraction] 25.6 % Low 37-47 [facility] Comment on above: Order Comment: 503-2 Performed By: #### Hola TS, L100.0500 ####[facility] [address] [place], [place], [address] CBC-Complete Blood Cnt No Di ffon 04-07-2024 RDW SD 44.5 fl High 35.1-43.9 [facility] Comment on above: Order Comment: 503-2 Performed By: #### Hola MAGALLON, L100.0500 ####[facility] [address] [place], [place], [address] Erythrocyte distribution wid th ratioOrdered By: April Mullen on 04-07-2024 Erythrocyte distribution width (RBC) [Ratio] 15.7 % High 11.6-14.6 [facility] Comment on above: Order Comment: 503-2 Performed By: #### Hola MAGALLON, L100.0500 ####[facility] [address] [place], [address] Erythrocyte distribution wid th standard deviationOrdered By: April Mullen on 04-07-2024 Erythrocyte distribution width (RBC) [Entitic vol] 44.5 fL High 35.1-43.9 [facility] Hemoglobin measurementOrdere d By: April Mullen on 04-07-2024 Hemoglobin (Bld) [Mass/Vol] 7.5 g/dL Low 12.0-15.0 [facility] Comment on above: Order Comment: 503-2 Performed By: #### B TS, L100.0500 ####[facility] [address] [place], [address] MCV (mean corpuscular volume ) determinationOrdered By: April Mullen on 04-07-2024 MCV (RBC) [Entitic vol] 78.0 fL Low 81-99 [facility] Comment on above: Order Comment: 503-2 Performed By: #### Hola TS, L100.0500 ####[facility] [address] [place], [address] Mean corpuscular hemoglobin (MCH) determinationOrdered By: April Mullen on 04-07-2024 MCH (RBC) [Entitic mass] 22.9 pg Low 27.0-32.0 [facility] Comment on above: Order Comment: 503-2 Performed By: #### Hola TS, L100.0500 ####[facility] [address] [place], [address] Mean corpuscular hemoglobin concentration (MCHC) determinationOrdered By: April Mullen on 04-07-2024 MCHC (RBC) [Mass/Vol] 29.3 g/dL Low 32-36 [facility] Comment on above: Order Comment: 503-2 Performed By: #### B TS, L100.0500 ####[facility] [address] [place], [address] Mean platelet volume determi nationOrdered By: April Mullen on 04-07-2024 Platelet mean volume (Bld) [Entitic vol] 10.1 fL Normal 6.2-12.0 [facility] Comment on above: Order Comment: 503-2 Performed By: #### Hola MAGALLON, L100.0500 ####[facility] [address] [place], [address] Platelet countOrdered By: Darvin Mullen on 04-07-2024 Platelets (Bld) [#/Vol] 203 10*3/uL Normal 150-450 [facility] Comment on above: Order Comment: 503-2 Performed By: #### Hola MAGALLON, L100.0500 ####[facility] [address] [place], [address] Type AND Screenon 04-07-2024 Ab SCREEN GEL Negative Normal [facility] Comment on above: Order Comment: 503-2 A Performed By: #### Hola MAGALLON, L100.0500 ####[facility] [address] [place], [address] White blood cell (WBC) count Ordered By: April Mullen on 04-07-2024 WBC (Bld) [#/Vol] 6.7 10*3/uL Normal 4.4-11.0 [facility] Comment on above: Order Comment: 503-2 Performed By: #### Hola MAGALLON, L100.0500 ####[facility] [address] [place], [address] CBC-Complete Blood Cnt No Di ffon 04-03-2024 Erythrocyte distribution width (RBC) [Ratio] 15.7 % High 11.6-14.6 [facility] Comment on above: Order Comment: 503.2 Performed By: #### L 100.0500 ####[facility] [address] [place], [address] Hematocrit (Bld) [Volume fraction] 24.8 % Low 37-47 [facility] Comment on above: Order Comment: 503.2 Performed By: #### L 100.0500 ####[facility] [address] [place], [address] Hemoglobin (Bld) [Mass/Vol] 7.2 g/dL Low 12.0-15.0 [facility] Comment on above: Order Comment: 503.2 Performed By: #### L 100.0500 ####[facility] [address] [place], [address] MCH (RBC) [Entitic mass] 22.9 pg Low 27.0-32.0 [facility] Comment on above: Order Comment: 503.2 Performed By: #### L 100.0500 ####[facility] [address] [place], [address] MCHC (RBC) [Mass/Vol] 29.0 g/dL Low 32-36 [facility] Comment on above: Order Comment: 503.2 Performed By: #### L 100.0500 ####[facility] [address] [place], [address] MCV (RBC) [Entitic vol] 78.7 fL Low 81-99 [facility] Comment on above: Order Comment: 503.2 Performed By: #### L 100.0500 ####[facility] [address] [place], [address] Platelet mean volume (Bld) [Entitic vol] 9.8 fL Normal 6.2-12.0 [facility] Comment on above: Order Comment: 503.2 Performed By: #### L 100.0500 ####[facility] [address] [place], [address] Platelets (Bld) [#/Vol] 155 10*3/uL Normal 150-450 [facility] Comment on above: Order Comment: 503.2 Performed By: #### L 100.0500 ####[facility] [address] [place], [address] RBC (Bld) [#/Vol] 3.15 10*6/uL Low 4.2-5.4 [facility] Comment on above: Order Comment: 503.2 Performed By: #### L 100.0500 ####[facility] [address] [place], [address] RDW SD 44.7 fl High 35.1-43.9 [facility] Comment on above: Order Comment: 503.2 Performed By: #### L 100.0500 ####[facility] [address] [place], [address] WBC (Bld) [#/Vol] 5.9 10*3/uL Normal 4.4-11.0 [facility] Comment on above: Order Comment: 503.2 Performed By: #### L 100.0500 ####[facility] [address] [place], [address] Erythrocyte distribution wid th ratioOrdered By: April Mullen on 04-03-2024 Erythrocyte distribution width (RBC) [Ratio] 15.7 % High 11.6-14.6 [facility] Erythrocyte distribution wid th standard deviationOrdered By: April Mullen on 04-03-2024 Erythrocyte distribution width (RBC) [Entitic vol] 44.7 fL High 35.1-43.9 [facility] Hematocrit Auto (Bld) [Volum e fraction]Ordered By: April Mullen on 04-03-2024 Hematocrit (Bld) [Volume fraction] 24.8 % Low 37-47 [facility] Hemoglobin measurementOrdere d By: April Mullen on 04-03-2024 Hemoglobin (Bld) [Mass/Vol] 7.2 g/dL Low 12.0-15.0 [facility] MCV (mean corpuscular volume ) determinationOrdered By: April Mullen on 04-03-2024 MCV (RBC) [Entitic vol] 78.7 fL Low 81-99 [facility] Mean corpuscular hemoglobin (MCH) determinationOrdered By: April Mullen on 04-03-2024 MCH (RBC) [Entitic mass] 22.9 pg Low 27.0-32.0 [facility] Mean corpuscular hemoglobin concentration (MCHC) determinationOrdered By: April Mullen on 04-03-2024 MCHC (RBC) [Mass/Vol] 29.0 g/dL Low 32-36 [facility] Mean platelet volume determi nationOrdered By: April Mullen on 04-03-2024 Platelet mean volume (Bld) [Entitic vol] 9.8 fL 6.2-12.0 [facility] Platelet countOrdered By: Darvin Mullen on 04-03-2024 Platelets (Bld) [#/Vol] 155 10*3/uL 150-450 [facility] RBC Auto (Bld) [#/Vol]Ordere d By: April Mullen on 04-03-2024 RBC (Bld) [#/Vol] 3.15 10*6/uL Low 4.2-5.4 [facility] White blood cell (WBC) count Ordered By: April Mullen on 04-03-2024 WBC (Bld) [#/Vol] 5.9 10*3/uL 4.4-11.0 [facility] 12 Lead EKGon 03-28-2024 12 Lead EKG Normal [facility] Basic Metabolic Profile (BMP )on 03-28-2024 BUN/CRE 20.2 RATIO High 01-26 [facility] Comment on above: Order Comment: 503.2 Performed By: #### L 100.0500, L500.2500, L500.4100, L501.9985 ####[facility] [address] [place], [place], [id number] CA,Total 8.8 mg/dL Normal 8.5-10.1 [facility] Comment on above: Order Comment: 503.2 Performed By: #### L 100.0500, L500.2500, L500.4100, L501.9985 ####[facility] [address] [place], [address] Chloride [Moles/Vol] 104 mmol/L Normal 98-107 [facility] Comment on above: Order Comment: 503.2 Performed By: #### L 100.0500, L500.2500, L500.4100, L501.9985 ####[facility] [address] [place], [address] CO2 [Moles/Vol] 28.0 mmol/L Normal 21.0-32.0 [facility] Comment on above: Order Comment: 503.2 Performed By: #### L 100.0500, L500.2500, L500.4100, L501.9985 ####[facility] [address] [place], [address] Creatinine [Mass/Vol] 1.09 mg/dL High 0.55-1.02 [facility] Comment on above: Order Comment: 503.2 Result Comment: The validity of the calculated GFR GFRAA in patients over70 years has not been determined. Clinical correlation isessential. Performed By: #### L 100.0500, L500.2500, L500.4100, L501.9985 ####[facility] [address] [place], [address] EST GFR - AA 63 mL/min Normal >60 [facility] Comment on above: Order Comment: 503.2 Result Comment: Afri can Martiniquais GFR Calc Performed By: #### L 100.0500, L500.2500, L500.4100, L501.9985 ####[facility] [address] [place], [address] GAP 5 Normal 5-15 [facility] Comment on above: Order Comment: 503.2 Performed By: #### L 100.0500, L500.2500, L500.4100, L501.9985 ####[facility] [address] [place], [address] GFR/1.73 sq M.predicted among non-blacks MDRD (S/P/Bld) [Vol rate/Area] 52 mL/min/{1.73_m2} Low >60 [facility] Comment on above: Order Comment: 503.2 Result Comment: Non- GFR Calc Performed By: #### L 100.0500, L500.2500, L500.4100, L501.9985 ####[facility] [address] [place], [address] Glucose [Mass/Vol] 112 mg/dL High 74-106 [facility] Comment on above: Order Comment: 503.2 Result Comment: Fast ing Glucose result from 100 to 125 mg/dLsuggests IMPAIRED HOMEOSTASIS per A.D.A. criteria. Performed By: #### L 100.0500, L500.2500, L500.4100, L501.9985 ####[facility] [address] [place], [address] Potassium [Moles/Vol] 3.9 mmol/L Normal 3.5-5.1 [facility] Comment on above: Order Comment: 503.2 Performed By: #### L 100.0500, L500.2500, L500.4100, L501.9985 ####[facility] [address] [place], [address] Sodium [Moles/Vol] 136 mmol/L Normal 136-145 [facility] Comment on above: Order Comment: 503.2 Performed By: #### L 100.0500, L500.2500, L500.4100, L501.9985 ####[facility] [address] [place], [address] Urea nitrogen [Mass/Vol] 22 mg/dL High 7-18 [facility] Comment on above: Order Comment: 503.2 Performed By: #### L 100.0500, L500.2500, L500.4100, L501.9985 ####[facility] [address] [place], [address] Bilirubin directOrdered By: Sujatha Hebert on 03-28-2024 Bilirubin.direct [Mass/Vol] 0.12 mg/dL 0.00-0.30 [facility] Bilirubin, totalOrdered By: Sujatha Hebert on 03-28-2024 Bilirubin [Mass/Vol] 0.20 mg/dL 0.20-1.00 [facility] Comment on above: For patients on eltr ombopag therapy, use of Dimension [place] TBIL is not recommended. Blood urea nitrogen (BUN)/cr eatinine ratioOrdered By: Dominic Lim on 03-28-2024 Urea nitrogen/Creatinine [Mass ratio] 20.2 mg/mg High 01-26 [facility] CBC-Complete Blood Cnt No Di ffon 03-28-2024 Erythrocyte distribution width (RBC) [Ratio] 15.9 % High 11.6-14.6 [facility] Comment on above: Order Comment: 503.2 Performed By: #### L 100.0500, L500.2500, L500.4100, L501.9985 ####[facility] [address] [place], [address] Hematocrit (Bld) [Volume fraction] 23.3 % Low 37-47 [facility] Comment on above: Order Comment: 503.2 Performed By: #### L 100.0500, L500.2500, L500.4100, L501.9985 ####[facility] [address] [place], [address] Hemoglobin (Bld) [Mass/Vol] 6.9 g/dL Low 12.0-15.0 [facility] Comment on above: Order Comment: 503.2 Performed By: #### L 100.0500, L500.2500, L500.4100, L501.9985 ####[facility] [address] [place], [address] MCH (RBC) [Entitic mass] 23.2 pg Low 27.0-32.0 [facility] Comment on above: Order Comment: 503.2 Performed By: #### L 100.0500, L500.2500, L500.4100, L501.9985 ####[facility] [address] [place], [address] MCHC (RBC) [Mass/Vol] 29.6 g/dL Low 32-36 [facility] Comment on above: Order Comment: 503.2 Performed By: #### L 100.0500, L500.2500, L500.4100, L501.9985 ####[facility] [address] [place], [address] MCV (RBC) [Entitic vol] 78.5 fL Low 81-99 [facility] Comment on above: Order Comment: 503.2 Performed By: #### L 100.0500, L500.2500, L500.4100, L501.9985 ####[facility] [address] [place], [address] Platelet mean volume (Bld) [Entitic vol] 9.7 fL Normal 6.2-12.0 [facility] Comment on above: Order Comment: 503.2 Performed By: #### L 100.0500, L500.2500, L500.4100, L501.9985 ####[facility] [address] [place], [address] Platelets (Bld) [#/Vol] 172 10*3/uL Normal 150-450 [facility] Comment on above: Order Comment: 503.2 Performed By: #### L 100.0500, L500.2500, L500.4100, L501.9985 ####[facility] [address] [place], [address] RBC (Bld) [#/Vol] 2.97 10*6/uL Low 4.2-5.4 [facility] Comment on above: Order Comment: 503.2 Performed By: #### L 100.0500, L500.2500, L500.4100, L501.9985 ####[facility] [address] [place], [address] RDW SD 45.1 fl High 35.1-43.9 [facility] Comment on above: Order Comment: 503.2 Performed By: #### L 100.0500, L500.2500, L500.4100, [id number] ####[facility] [address] [place], [address] WBC (Bld) [#/Vol] 5.4 10*3/uL Normal 4.4-11.0 [facility] Comment on above: Order Comment: 503.2 Performed By: #### L 100.0500, L500.2500, L500.4100, L501.9985 ####[facility] [address] [place], [address] Carbon dioxide measurementOr dered By: Dominic Lim on 03-28-2024 CO2 [Moles/Vol] 28.0 mmol/L 21.0-32.0 [facility] Chloride measurementOrdered By: Dominic Lim on 03-28-2024 Chloride [Moles/Vol] 104 mmol/L 98-107 [facility] Emergency Department Summary on 03-28-2024 Emergency Department Summary Normal [facility] Erythrocyte distribution wid th ratioOrdered By: Dominic Lim on 03-28-2024 Erythrocyte distribution width (RBC) [Ratio] 15.9 % High 11.6-14.6 [facility] Erythrocyte distribution wid th standard deviationOrdered By: Dominic Lim on 03-28-2024 Erythrocyte distribution width (RBC) [Entitic vol] 45.1 fL High 35.1-43.9 [facility] Estimated glomerular filtrat ion rate (GFR) AmericanOrdered By: Dominic Lim on 03-28-2024 Estimated GFR (MDRD) Amer 63 mL/min >60 [facility] Comment on above: GFR Calc Glomerular filtration rate ( GFR) estimationOrdered By: Dominic Lim on 03-28-2024 Estimated GFR (MDRD) Non-Af Amer 52 mL/min Low >60 [facility] Comment on above: Non- GFR Calc Glucose measurementOrdered B y: Dominic Lim on 03-28-2024 Glucose [Mass/Vol] 112 mg/dL High 74-106 [facility] Comment on above: Fasting Glucose resu lt from 100 to 125 mg/dL suggests IMPAIRED HOMEOSTASIS per A.D.A. criteria. HH, Hemoglobin AND Hematocri ton 03-28-2024 Hematocrit (Bld) [Volume fraction] 23.3 % Low 37-47 [facility] Comment on above: Performed By: #### L 100.0600 ####[facility] [address] [place], [address] Hemoglobin (Bld) [Mass/Vol] 7.1 g/dL Low 12.0-15.0 [facility] Comment on above: Performed By: #### L 100.0600 ####[facility] [address] [place], [address] Hematocrit (Bld) [Volume fraction] 25.0 % Low [address] Comment on above: Performed By: #### L 100.0600, BTS, M100.7900 ####[facility] [address] [place], [address] Hemoglobin (Bld) [Mass/Vol] 7.7 g/dL Low 12.0-15.0 [facility] Comment on above: Performed By: #### L 100.0600, BTS, M100.7900 ####[facility] [address] [place], [address] Hematocrit Auto (Bld) [Volum e fraction]Ordered By: Sujatha Hebert on 03-28-2024 Hematocrit (Bld) [Volume fraction] 23.3 % Low [address] Hematocrit Auto (Bld) [Volum e fraction]Ordered By: Dominic Lim on 03-28-2024 Hematocrit (Bld) [Volume fraction] 23.3 % Low 37-47 [facility] Hemoglobin A1con 03-28-2024 HbA1c (Bld) [Mass fraction] 5.6 % Normal 3.8-5.6 [facility] Comment on above: Order Comment: 503.2 Result Comment: Norm al < 5.7 % Prediabetic 5.7 - 6.4 % Diabetic >or= 6.5 % Please note range changes. Performed By: #### L 100.0500, L500.2500, L500.4100, L501.9985 ####[facility] [address] [place], [address] Hemoglobin A1c percentageOrd ered By: Dominic Lim on 03-28-2024 HbA1c (Bld) [Mass fraction] 5.6 % 3.8-5.6 [facility] Comment on above: Normal < 5.7 % Predi abetic 5.7 - 6.4 % Diabetic >or= 6.5 % Please note range changes. Hemoglobin measurementOrdere d By: Sujatha Hebert on 03-28-2024 Hemoglobin (Bld) [Mass/Vol] 7.1 g/dL Low 12.0-15.0 [facility] Hemoglobin measurementOrdere d By: Dominic Lim on 03-28-2024 Hemoglobin (Bld) [Mass/Vol] 6.9 g/dL Low 12.0-15.0 [facility] High density lipoprotein (HD L) measurementOrdered By: Dominic Lim on 03-28-2024 Cholesterol in HDL [Mass/Vol] 58 mg/dL >40 [facility] Comment on above: The drugs N-Acetylcy steine and Metamizole may falsely depress this assay. Reference Range HDL <40 mg/dL Low HDL Cholesterol HDL >or= 60 mg/dL High HDL Cholesterol L501.4020on 03-28-2024 TROPONIN-I HS 14 pg/mL Normal 3.0-54.0 [facility] Comment on above: Order Comment: 'TROP ' Serial specimen #1, #2 or #3: 1 Result Comment: Kalli torres Note: New Test Units and Gender Specific Reference Ranges. For more information see Policy Stat Procedure [place] High Sensitivity Troponin (TNIH) and attachments. Performed By: #### L 501.4020, L501.2450, L500.3400 ####[facility] [address] [place], [place], [id number] Laboratory - Chemistry and C hemistry - challengeOrdered By: Sujatha Hebert on 03-28-2024 AST [Catalytic activity/Vol] 14 U/L Low 15-37 [facility] Lipaseon 03-28-2024 Lipase [Catalytic activity/Vol] 18 U/L Normal 13-75 [facility] Comment on above: Order Comment: 'TROP ' Serial specimen #1, #2 or #3: 1 Result Comment: Plea se note:LIPASE revised reference range effective 22.New Lipase methodology. Expected to produce lower valuesthan the previous assay method.NEW Reference Range: 13 - 75 U/L Performed By: #### L 501.4020, L501.2450, L500.3400 ####[facility] [address] [place], [place], [id number] Lipase measurementOrdered By : Sujatha Hebert on 03-28-2024 Lipase [Catalytic activity/Vol] 18 U/L 13-75 [facility] Comment on above: Please note:LIPASE r evised reference range effective 22. New Lipase methodology. Expected to produce lower values than the previous assay method. NEW Reference Range: 13 - 75 U/L Lipid Profileon 03-28-2024 Cholesterol [Mass/Vol] 140 mg/dL Normal 200 [facility] Comment on above: Order Comment: 503.2 Result Comment: <200 mg/dL Desirable 200-240 mg/dL Borderline >240 mg/dL High Risk Performed By: #### L 100.0500, L500.2500, L500.4100, L501.9985 ####[facility] [address] [place], [place], [id number] Cholesterol in HDL [Mass/Vol] 58 mg/dL Normal [facility] Comment on above: Order Comment: 503.2 Result Comment: The drugs N-Acetylcysteine and Metamizole may falselydepress this assay. Reference Range HDL <40 mg/dL Low HDL Cholesterol HDL >or= 60 mg/dL High HDL Cholesterol Performed By: #### L 100.0500, L500.2500, L500.4100, L501.9985 ####[facility] [address] [place], [address] Cholesterol in LDL [Mass/Vol] 62 mg/dL Normal 0-130 [facility] Comment on above: Order Comment: 503.2 Performed By: #### L 100.0500, L500.2500, L500.4100, L501.9985 ####[facility] [address] [place], [address] Cholesterol in VLDL [Mass/Vol] 20 mg/dL Normal 5-40 [facility] Comment on above: Order Comment: 503.2 Performed By: #### L 100.0500, L500.2500, L500.4100, L501.9985 ####[facility] [address] [place], [address] Triglyceride [Mass/Vol] 98 mg/dL Normal [facility] Comment on above: Order Comment: 503.2 Result Comment: The drugs N-Acetylcysteine and Metamizole may falselydepress this assay.Serum Triglycerides Reference Interval Normal <150 mg/dL Borderline high 150 - 199 mg/dL High 200 - 499 mg/dL Very High > or = 500 mg/dL Performed By: #### L 100.0500, L500.2500, L500.4100, L501.9985 ####[facility] [address] [place], [address] Liver Profileon 03-28-2024 Albumin [Mass/Vol] 2.4 g/dL Low 3.2-5.0 [facility] Comment on above: Order Comment: 'TROP ' Serial specimen #1, #2 or #3: 1 Performed By: #### L 501.4020, L501.2450, L500.3400 ####[facility] [address] [place], [address] ALK P 126 U/L High 45-117 [facility] Comment on above: Order Comment: 'TROP ' Serial specimen #1, #2 or #3: 1 Performed By: #### L 501.4020, L501.2450, L500.3400 ####[facility] [address] [place], [address] ALT [Catalytic activity/Vol] 13 U/L Normal 13-56 [facility] Comment on above: Order Comment: 'TROP ' Serial specimen #1, #2 or #3: 1 Performed By: #### L 501.4020, L501.2450, L500.3400 ####[facility] [address] [place], [address] AST [Catalytic activity/Vol] 14 U/L Low 15-37 [facility] Comment on above: Order Comment: 'TROP ' Serial specimen #1, #2 or #3: 1 Performed By: #### L 501.4020, L501.2450, L500.3400 ####[facility] [address] [place], [address] Bilirubin [Mass/Vol] 0.20 mg/dL Normal 0.20-1.00 [facility] Comment on above: Order Comment: 'TROP ' Serial specimen #1, #2 or #3: 1 Result Comment: For patients on eltrombopag therapy, use of Dimension [place] TBIL is not recommended. Performed By: #### L 501.4020, L501.2450, L500.3400 ####[facility] [address] [place], [address] Bilirubin.direct [Mass/Vol] 0.12 mg/dL Normal 0.00-0.30 [facility] Comment on above: Order Comment: 'TROP ' Serial specimen #1, #2 or #3: 1 Performed By: #### L 501.4020, L501.2450, L500.3400 ####[facility] [address] [place], [address] Globulin (S) [Mass/Vol] 3.5 g/dL Normal 2.2-4.2 [facility] Comment on above: Order Comment: 'TROP ' Serial specimen #1, #2 or #3: 1 Performed By: #### L 501.4020, L501.2450, L500.3400 ####[facility] [address] [place], [address] T PROT 5.9 g/dL Low 6.4-8.2 [facility] Comment on above: Order Comment: 'TROP ' Serial specimen #1, #2 or #3: 1 Performed By: #### L 501.4020, L501.2450, L500.3400 ####[facility] [address] [place], [place], [id number] Low density lipoprotein (LDL ) cholesterol measurementOrdered By: Dominic Lim on 03-28-2024 Cholesterol in LDL [Mass/Vol] 62 mg/dL 0-130 [facility] Lower GI hemoglobin IA Ql (S tl)Ordered By: Sujatha Hebert on 03-28-2024 Stool Occult Blood (MOOSE) Positive Abnormal [facility] Stool Occult Blood (MOOSE) Positive Abnormal [facility] MCV (mean corpuscular volume ) determinationOrdered By: Dominic Lim on 03-28-2024 MCV (RBC) [Entitic vol] 78.5 fL Low 81-99 [facility] Mean corpuscular hemoglobin (MCH) determinationOrdered By: Dominic Lim on 03-28-2024 MCH (RBC) [Entitic mass] 23.2 pg Low 27.0-32.0 [facility] Mean corpuscular hemoglobin concentration (MCHC) determinationOrdered By: Dominic Lim on 03-28-2024 MCHC (RBC) [Mass/Vol] 29.6 g/dL Low 32-36 [facility] Mean platelet volume determi nationOrdered By: Dominic Lim on 03-28-2024 Platelet mean volume (Bld) [Entitic vol] 9.7 fL 6.2-12.0 [facility] Platelet countOrdered By: Fidelia Lim on 03-28-2024 Platelets (Bld) [#/Vol] 172 10*3/uL 150-450 [facility] Potassium measurementOrdered By: Dominic Lim on 03-28-2024 Potassium [Moles/Vol] 3.9 mmol/L 3.5-5.1 [facility] RBC Auto (Bld) [#/Vol]Ordere d By: Dominic Lim on 03-28-2024 RBC (Bld) [#/Vol] 2.97 10*6/uL Low 4.2-5.4 [facility] Serum anion gap measurementO rdered By: Dominic Lim on 03-28-2024 Anion gap [Moles/Vol] 5 mmol/L 5-15 [facility] Serum globulin measurementOr dered By: Sujatha Hebert on 03-28-2024 Globulin (S) [Mass/Vol] 3.5 g/dL 2.2-4.2 [facility] Serum or plasma alanine sousa otransferase (ALT) measurementOrdered By: Sujatha Hebert on 03-28-2024 ALT [Catalytic activity/Vol] 13 U/L 13-56 [facility] Serum or plasma albumin kay urement (mass/volume)Ordered By: Sujatha Hebert on 03-28-2024 Albumin [Mass/Vol] 2.4 g/dL Low 3.2-5.0 [facility] Serum or plasma alkaline radha sphatase measurementOrdered By: Sujatha Hebert on 03-28-2024 ALP [Catalytic activity/Vol] 126 U/L High 45-117 [facility] Serum or plasma calcium kay urement (mass/volume)Ordered By: Dominic Lim on 03-28-2024 Calcium [Mass/Vol] 8.8 mg/dL 8.5-10.1 [facility] Serum or plasma cholesterol measurement (mass/volume)Ordered By: Dominic Lim on 03-28-2024 Cholesterol [Mass/Vol] 140 mg/dL <200 [facility] Comment on above: <200 mg/dL Desirable 200-240 mg/dL Borderline >240 mg/dL High Risk Serum or plasma creatinine m easurement (mass/volume)Ordered By: Dominic Lim on 03-28-2024 Creatinine [Mass/Vol] 1.09 mg/dL High 0.55-1.02 [facility] Comment on above: The validity of the calculated GFR & GFRAA in patients over 70 years has not been determined. Clinical correlation is essential. Serum or plasma urea nitroge n measurement (mass/volume)Ordered By: Dominic Lim on 03-28-2024 Urea nitrogen [Mass/Vol] 22 mg/dL High 7-18 [facility] Sodium levelOrdered By: Dominic Lim on 03-28-2024 Sodium [Moles/Vol] 136 mmol/L 136-145 [facility] Stool Occult Blood iFOBon STOB Positive Normal [facility] Comment on above: Performed By: #### L 100.0600, BTS, M100.7900 ####[facility] [address] [place], [place], [address] Total proteinOrdered By: Emanuel Hebert on 03-28-2024 Protein [Mass/Vol] 5.9 g/dL Low 6.4-8.2 [facility] Triglycerides measurementOrd ered By: Dominic Lim on 03-28-2024 Triglyceride [Mass/Vol] 98 mg/dL <199 [facility] Comment on above: The drugs N-Acetylcy steine and Metamizole may falsely depress this assay.Serum Triglycerides Reference Interval Normal <150 mg/dL Borderline high 150 - 199 mg/dL High 200 - 499 mg/dL Very High > or = 500 mg/dL Troponin IOrdered By: Rica Hebert on 03-28-2024 Troponin I High Sensitivity 14 pg/mL 3.0-54.0 [facility] Comment on above: Please Note: New Lizeth t Units and Gender Specific Reference Ranges. For more information see Policy Stat Procedure [place] High Sensitivity Troponin (TNIH) and attachments. Type AND Screenon 03-28-2024 ABO and Rh group Nom (Bld) Blood group O Rh(D) positive Normal [facility] Comment on above: Order Comment: A Performed By: #### L 100.0600, BTS, M100.7900 ####[facility] [address] [place], [address] Very low density lipoprotein (VLDL) cholesterol measurementOrdered By: Dominic Lim on 03-28-2024 VLDL Cholesterol 20 mg/dL 5-40 [facility] White blood cell (WBC) count Ordered By: Dominic Lim on 03-28-2024 WBC (Bld) [#/Vol] 5.4 10*3/uL 4.4-11.0 [facility] Basic Metabolic Profile (BMP )on 02-27-2024 BUN/CRE 21.2 RATIO High 01-26 [facility] Comment on above: Order Comment: 503.2 Performed By: #### L 500.2500, L100.0500 ####[facility] [address] [place], [address] CA,Total 8.6 mg/dL Normal 8.5-10.1 [facility] Comment on above: Order Comment: 503.2 Performed By: #### L 500.2500, L100.0500 ####[facility] [address] [place], [address] Chloride [Moles/Vol] 104 mmol/L Normal 98-107 [facility] Comment on above: Order Comment: 503.2 Performed By: #### L 500.2500, L100.0500 ####[facility] [address] [place], [address] CO2 [Moles/Vol] 28.0 mmol/L Normal 21.0-32.0 [facility] Comment on above: Order Comment: 503.2 Performed By: #### L 500.2500, L100.0500 ####[facility] [address] [place], [address] Creatinine [Mass/Vol] 1.13 mg/dL High 0.55-1.02 [facility] Comment on above: Order Comment: 503.2 Result Comment: The validity of the calculated GFR GFRAA in patients over70 years has not been determined. Clinical correlation isessential. Performed By: #### L 500.2500, L100.0500 ####[facility] [address] [place], [address] EST GFR - AA 60 mL/min Normal >60 [facility] Comment on above: Order Comment: 503.2 Result Comment: Afri can Martiniquais GFR Calc Performed By: #### L 500.2500, L100.0500 ####[facility] [address] [place], [address] GAP 7 Normal 5-15 [facility] Comment on above: Order Comment: 503.2 Performed By: #### L 500.2500, L100.0500 ####[facility] [address] [place], [address] GFR/1.73 sq M.predicted among non-blacks MDRD (S/P/Bld) [Vol rate/Area] 50 mL/min/{1.73_m2} Low >60 [facility] Comment on above: Order Comment: 503.2 Result Comment: Non- GFR Calc Performed By: #### L 500.2500, L100.0500 ####[facility] [address] [place], [address] Glucose [Mass/Vol] 106 mg/dL Normal 74-106 [facility] Comment on above: Order Comment: 503.2 Result Comment: Fast ing Glucose result from 100 to 125 mg/dLsuggests IMPAIRED HOMEOSTASIS per A.D.A. criteria. Performed By: #### L 500.2500, L100.0500 ####[facility] [address] [place], [address] Potassium [Moles/Vol] 3.9 mmol/L Normal 3.5-5.1 [facility] Comment on above: Order Comment: 503.2 Performed By: #### L 500.2500, L100.0500 ####[facility] [address] [place], [address] Sodium [Moles/Vol] 139 mmol/L Normal 136-145 [facility] Comment on above: Order Comment: 503.2 Performed By: #### L 500.2500, L100.0500 ####[facility] [address] [place], [address] Urea nitrogen [Mass/Vol] 24 mg/dL High 7-18 [facility] Comment on above: Order Comment: 503.2 Performed By: #### L 500.2500, L100.0500 ####[facility] [address] [place], [address] Blood urea nitrogen (BUN)/cr eatinine ratioOrdered By: Dominic Lim on 02-27-2024 Urea nitrogen/Creatinine [Mass ratio] 21.2 mg/mg High - [facility] CBC-Complete Blood Cnt No Di ffon 02-27-2024 Erythrocyte distribution width (RBC) [Ratio] 15.6 % High 11.6-14.6 [facility] Comment on above: Order Comment: 503.2 Performed By: #### L 500.2500, L100.0500 ####[facility] [address] [place], [address] Hematocrit (Bld) [Volume fraction] 26.7 % Low 37-47 [facility] Comment on above: Order Comment: 503.2 Performed By: #### L 500.2500, L100.0500 ####[facility] [address] [place], [address] Hemoglobin (Bld) [Mass/Vol] 7.8 g/dL Low 12.0-15.0 [facility] Comment on above: Order Comment: 503.2 Performed By: #### L 500.2500, L100.0500 ####[facility] [address] [place], [address] MCH (RBC) [Entitic mass] 23.9 pg Low 27.0-32.0 [facility] Comment on above: Order Comment: 503.2 Performed By: #### L 500.2500, L100.0500 ####[facility] [address] [place], [address] MCHC (RBC) [Mass/Vol] 29.2 g/dL Low 32-36 [facility] Comment on above: Order Comment: 503.2 Performed By: #### L 500.2500, L100.0500 ####[facility] [address] [place], [address] MCV (RBC) [Entitic vol] 81.7 fL Normal 81-99 [facility] Comment on above: Order Comment: 503.2 Performed By: #### L 500.2500, L100.0500 ####[facility] [address] [place], [address] Platelet mean volume (Bld) [Entitic vol] 9.7 fL Normal 6.2-12.0 [facility] Comment on above: Order Comment: 503.2 Performed By: #### L 500.2500, L100.0500 ####[facility] [address] [place], [address] Platelets (Bld) [#/Vol] 196 10*3/uL Normal 150-450 [facility] Comment on above: Order Comment: 503.2 Performed By: #### L 500.2500, L100.0500 ####[facility] [address] [place], [address] RBC (Bld) [#/Vol] 3.27 10*6/uL Low 4.2-5.4 [facility] Comment on above: Order Comment: 503.2 Performed By: #### L 500.2500, L100.0500 ####[facility] [address] [place], [address] RDW SD 46.1 fl High 35.1-43.9 [facility] Comment on above: Order Comment: 503.2 Performed By: #### L 500.2500, L100.0500 ####[facility] [address] [place], [address] WBC (Bld) [#/Vol] 6.3 10*3/uL Normal 4.4-11.0 [facility] Comment on above: Order Comment: 503.2 Performed By: #### L 500.2500, L100.0500 ####[facility] [address] [place], [address] Carbon dioxide measurementOr dered By: Dominic Lim on 02-27-2024 CO2 [Moles/Vol] 28.0 mmol/L 21.0-32.0 [facility] Chloride measurementOrdered By: Dominic Lim on 02-27-2024 Chloride [Moles/Vol] 104 mmol/L 98-107 [facility] Erythrocyte distribution wid th ratioOrdered By: Dominic Lim on 02-27-2024 Erythrocyte distribution width (RBC) [Ratio] 15.6 % High 11.6-14.6 [facility] Erythrocyte distribution wid th standard deviationOrdered By: Dominic Lim on 02-27-2024 Erythrocyte distribution width (RBC) [Entitic vol] 46.1 fL High 35.1-43.9 [facility] Estimated glomerular filtrat ion rate (GFR) AmericanOrdered By: Dominic Lim on 02-27-2024 Estimated GFR (MDRD) Amer 60 mL/min >60 [facility] Comment on above: GFR Calc Glomerular filtration rate ( GFR) estimationOrdered By: Dominic Lim on 02-27-2024 Estimated GFR (MDRD) Non-Af Amer 50 mL/min Low >60 [facility] Comment on above: Non- GFR Calc Glucose measurementOrdered B y: Dominic Lim on 02-27-2024 Glucose [Mass/Vol] 106 mg/dL 74-106 [facility] Comment on above: Fasting Glucose resu lt from 100 to 125 mg/dL suggests IMPAIRED HOMEOSTASIS per A.D.A. criteria. Hematocrit Auto (Bld) [Volum e fraction]Ordered By: Dominic Lim on 02-27-2024 Hematocrit (Bld) [Volume fraction] 26.7 % Low 37-47 [facility] Hemoglobin measurementOrdere d By: Dominic Lim on 02-27-2024 Hemoglobin (Bld) [Mass/Vol] 7.8 g/dL Low 12.0-15.0 [facility] MCV (mean corpuscular volume ) determinationOrdered By: Dominic Lim on 02-27-2024 MCV (RBC) [Entitic vol] 81.7 fL 81-99 [facility] Mean corpuscular hemoglobin (MCH) determinationOrdered By: Dominic Lim on 02-27-2024 MCH (RBC) [Entitic mass] 23.9 pg Low 27.0-32.0 [facility] Mean corpuscular hemoglobin concentration (MCHC) determinationOrdered By: Dominic Lim on 02-27-2024 MCHC (RBC) [Mass/Vol] 29.2 g/dL Low 32-36 [facility] Mean platelet volume determi nationOrdered By: Dominic Lim on 02-27-2024 Platelet mean volume (Bld) [Entitic vol] 9.7 fL 6.2-12.0 [facility] Platelet countOrdered By: Fidelia Lim on 02-27-2024 Platelets (Bld) [#/Vol] 196 10*3/uL 150-450 [facility] Potassium measurementOrdered By: Dominic Lim on 02-27-2024 Potassium [Moles/Vol] 3.9 mmol/L 3.5-5.1 [facility] RBC Auto (Bld) [#/Vol]Ordere d By: Dominic Lim on 02-27-2024 RBC (Bld) [#/Vol] 3.27 10*6/uL Low 4.2-5.4 [facility] Serum anion gap measurementO rdered By: Dominic Lim on 02-27-2024 Anion gap [Moles/Vol] 7 mmol/L 5-15 [facility] Serum or plasma calcium kay urement (mass/volume)Ordered By: Dominic Lim on 02-27-2024 Calcium [Mass/Vol] 8.6 mg/dL 8.5-10.1 [facility] Serum or plasma creatinine m easurement (mass/volume)Ordered By: Dominic Lim on 02-27-2024 Creatinine [Mass/Vol] 1.13 mg/dL High 0.55-1.02 [facility] Comment on above: The validity of the calculated GFR & GFRAA in patients over 70 years has not been determined. Clinical correlation is essential. Serum or plasma urea nitroge n measurement (mass/volume)Ordered By: Dominic Lim on 02-27-2024 Urea nitrogen [Mass/Vol] 24 mg/dL High 7-18 [facility] Sodium levelOrdered By: Dominic Lim on 02-27-2024 Sodium [Moles/Vol] 139 mmol/L 136-145 [facility] White blood cell (WBC) count Ordered By: Dominic Lim on 02-27-2024 WBC (Bld) [#/Vol] 6.3 10*3/uL 4.4-11.0 [facility] Basic Metabolic Profile (BMP )on 01-29-2024 BUN/CRE 33.3 RATIO High 01-26 [facility] Comment on above: Performed By: #### L 500.2500 ####[facility] [address] [place] [address] [place],Total 8.1 mg/dL Low 8.5-10.1 [facility] Comment on above: Performed By: #### L 500.2500 ####[facility] [address] [facility] [address] Chloride [Moles/Vol] 102 mmol/L Normal 98-107 [facility] Comment on above: Performed By: #### L 500.2500 ####[facility] [address] [facility] [address] CO2 [Moles/Vol] 33.0 mmol/L High 21.0-32.0 [facility] [facility] Comment on above: Performed By: #### L 500.2500 ####[facility] [address], [address] Creatinine [Mass/Vol] 1.05 mg/dL High 0.55-1.02 [facility] Comment on above: Result Comment: The validity of the calculated GFR GFRAA in patients over70 years has not been determined. Clinical correlation isessential. Performed By: #### L 500.2500 ####[facility] [address] [place], [address] EST GFR - AA 66 mL/min Normal >60 [facility] Comment on above: Result Comment: Afri can Martiniquais GFR Calc Performed By: #### L 500.2500 ####[facility] [address] [place], [address] GAP 4 Low 5-15 [facility] Comment on above: Performed By: #### L 500.2500 ####[facility] [address] [place], [address] GFR/1.73 sq M.predicted among non-blacks MDRD (S/P/Bld) [Vol rate/Area] 54 mL/min/{1.73_m2} Low >60 [facility] Comment on above: Result Comment: Non- GFR Calc Performed By: #### L 500.2500 ####[facility] [address] [place], [address] Glucose [Mass/Vol] 101 mg/dL Normal 74-106 [facility] Comment on above: Result Comment: Fast ing Glucose result from 100 to 125 mg/dLsuggests IMPAIRED HOMEOSTASIS per A.D.A. criteria. Performed By: #### L 500.2500 ####[facility] [address] [place], [address] Potassium [Moles/Vol] 3.8 mmol/L Normal 3.5-5.1 [facility] Comment on above: Performed By: #### L 500.2500 ####[facility] [address] [place], [address] Sodium [Moles/Vol] 139 mmol/L Normal 136-145 [facility] Comment on above: Performed By: #### L 500.2500 ####[facility] [address] [place], [address] Urea nitrogen [Mass/Vol] 35 mg/dL High 7-18 [facility] Comment on above: Performed By: #### L 500.2500 ####[facility] [address] [place], [address] Basic Metabolic Profile (BMP )on 01-28-2024 BUN/CRE 30.8 RATIO High 10-20 [facility] Comment on above: Order Comment: 514.1 Performed By: #### L 101.9900, L100.0500, L500.2500, L501.8820 ####[facility] [address] [place], [address] CA,Total 8.3 mg/dL Low 8.5-10.1 [facility] Comment on above: Order Comment: 514.1 Performed By: #### L 101.9900, L100.0500, L500.2500, L501.8820 ####[facility] [address] [place], [address] Chloride [Moles/Vol] 101 mmol/L Normal 98-107 [facility] Comment on above: Order Comment: 514.1 Performed By: #### L 101.9900, L100.0500, L500.2500, L501.8820 ####[facility] [address] [place], [address] CO2 [Moles/Vol] 36.0 mmol/L High 21.0-32.0 [facility] Comment on above: Order Comment: 514.1 Performed By: #### L 101.9900, L100.0500, L500.2500, L501.8820 ####[facility] [address] [place], [address] Creatinine [Mass/Vol] 1.07 mg/dL High 0.55-1.02 [facility] Comment on above: Order Comment: 514.1 Result Comment: The validity of the calculated GFR GFRAA in patients over70 years has not been determined. Clinical correlation isessential. Performed By: #### L 101.9900, L100.0500, L500.2500, L501.8820 ####[facility] [address] [place], [address] EST GFR - AA 64 mL/min Normal >60 [facility] Comment on above: Order Comment: 514.1 Result Comment: Afri can Martiniquais GFR Calc Performed By: #### L 101.9900, L100.0500, L500.2500, L501.8820 ####[facility] [address] [place], [address] GAP 2 Low 5-15 [facility] Comment on above: Order Comment: 514.1 Performed By: #### L 101.9900, L100.0500, L500.2500, L501.8820 ####[facility] [address] [place], [address] GFR/1.73 sq M.predicted among non-blacks MDRD (S/P/Bld) [Vol rate/Area] 53 mL/min/{1.73_m2} Low >60 [facility] Comment on above: Order Comment: 514.1 Result Comment: Non- GFR Calc Performed By: #### L 101.9900, L100.0500, L500.2500, L501.8820 ####[facility] [address] [place], [address] Glucose [Mass/Vol] 111 mg/dL High 74-106 [facility] Comment on above: Order Comment: 514.1 Result Comment: Fast ing Glucose result from 100 to 125 mg/dLsuggests IMPAIRED HOMEOSTASIS per A.D.A. criteria. Performed By: #### L 101.9900, L100.0500, L500.2500, L501.8820 ####[facility] [address] [place], [address] Potassium [Moles/Vol] 3.8 mmol/L Normal 3.5-5.1 [facility] Comment on above: Order Comment: 514.1 Performed By: #### L 101.9900, L100.0500, L500.2500, L501.8820 ####[facility] [address] [place], [address] Sodium [Moles/Vol] 139 mmol/L Normal 136-145 [facility] Comment on above: Order Comment: 514.1 Performed By: #### L 101.9900, L100.0500, L500.2500, L501.8820 ####[facility] [address] [place], [address] Urea nitrogen [Mass/Vol] 33 mg/dL High 7-18 [facility] Comment on above: Order Comment: 514.1 Performed By: #### L 101.9900, L100.0500, L500.2500, L501.8820 ####[facility] [address] [place], [address] CBC-Complete Blood Cnt No Di ffon 01-28-2024 Erythrocyte distribution width (RBC) [Ratio] 17.2 % High 11.6-14.6 [facility] Comment on above: Order Comment: 514.1 Performed By: #### L 101.9900, L100.0500, L500.2500, L501.8820 ####[facility] [address] [place], [address] Hematocrit (Bld) [Volume fraction] 27.9 % Low 37-47 [facility] Comment on above: Order Comment: 514.1 Performed By: #### L 101.9900, L100.0500, L500.2500, L501.8820 ####[facility] [address] [place], [address] Hemoglobin (Bld) [Mass/Vol] 8.4 g/dL Low 12.0-15.0 [facility] Comment on above: Order Comment: 514.1 Performed By: #### L 101.9900, L100.0500, L500.2500, L501.8820 ####[facility] [address] [place], [address] MCH (RBC) [Entitic mass] 25.5 pg Low 27.0-32.0 [facility] Comment on above: Order Comment: 514.1 Performed By: #### L 101.9900, L100.0500, L500.2500, L501.8820 ####[facility] [address] [place], [address] MCHC (RBC) [Mass/Vol] 30.1 g/dL Low 32-36 [facility] Comment on above: Order Comment: 514.1 Performed By: #### L 101.9900, L100.0500, L500.2500, L501.8820 ####[facility] [address] [place], [address] MCV (RBC) [Entitic vol] 84.8 fL Normal 81-99 [facility] Comment on above: Order Comment: 514.1 Performed By: #### L 101.9900, L100.0500, L500.2500, L501.8820 ####[facility] [address] [place], [address] Platelet mean volume (Bld) [Entitic vol] 9.2 fL Normal 6.2-12.0 [facility] Comment on above: Order Comment: 514.1 Performed By: #### L 101.9900, L100.0500, L500.2500, L501.8820 ####[facility] [address] [place], [address] Platelets (Bld) [#/Vol] 316 10*3/uL Normal 150-450 [facility] Comment on above: Order Comment: 514.1 Performed By: #### L 101.9900, L100.0500, L500.2500, L501.8820 ####[facility] [address] [place], [address] RBC (Bld) [#/Vol] 3.29 10*6/uL Low 4.2-5.4 [facility] Comment on above: Order Comment: 514.1 Performed By: #### L 101.9900, L100.0500, L500.2500, L501.8820 ####[facility] [address] [place], [address] RDW SD 53.3 fl High 35.1-43.9 [facility] Comment on above: Order Comment: 514.1 Performed By: #### L 101.9900, L100.0500, L500.2500, L501.8820 ####[facility] [address] [place], [address] WBC (Bld) [#/Vol] 9.4 10*3/uL Normal 4.4-11.0 [facility] Comment on above: Order Comment: 514.1 Performed By: #### L 101.9900, L100.0500, L500.2500, L501.8820 ####[facility] [address] [place], [address] Erythrocyte Sed Rateon 01-27 SED RATE 33 mm/hr High 0-30 [facility] Comment on above: Order Comment: 514.1 Performed By: #### L 101.9900, L100.0500, L500.2500, L501.8820 ####[facility] [address] [place], [address] Vancomycin, Trough Levelon 1 VANCO, TROUGH 4.1 ug/mL Low 5.0-15.0 [facility] Comment on above: Order Comment: 514.1 0500 Result Comment: VANC OMYCIN STANDARED DRUG THERAPY TROUGH LEVEL: 5.0 - 15.0 mg/LVANCOMYCIN HIGH INTENSITY THERAPY TROUGH LEVEL: 15.0 - 20.0 mg/LHigh Intensity therapy recommended for serious lifethreatening infections include:- Cyngwwnfqe-Rxdeozsfovet-Muljlekvd (Ventilator/Healtcare Associated)-SepsisPLEASE CONTACT PHARMACY SERVICES (#5657) FOR INTERPRETATIONOF RESULTS. Performed By: #### L 101.9900, L100.0500, L500.2500, L501.8820 ####[facility] [address], [address] L5000.0010on 01-26-2024 BNP Normal [facility] Comment on above: Result Comment: TEST RESULTS LIMITSB-Type Natriuretic Peptide 443.4 High pg/mL 0.0-100.0 Siemens ADVIA Centaur XP methodology TESTING PERFORMED AT [facility]. ORIGINAL REPORT ON FILE IN LAB CONTAINS ADDITIONAL TEST SITE INFORMATION. Performed By: #### L 100.0500, L101.9900, L500.2500, L5000.0010 ####[facility] [address] [place], [address] Basic Metabolic Profile (BMP )on 01-21-2024 BUN/CRE 34.1 RATIO High 01-26 [facility] Comment on above: Order Comment: 514.1 Performed By: #### L 100.0500, L101.9900, L500.2500, L5000.0010 ####[facility] [address] [place], [address] CA,Total 8.0 mg/dL Low 8.5-10.1 [facility] Comment on above: Order Comment: 514.1 Performed By: #### L 100.0500, L101.9900, L500.2500, L5000.0010 ####[facility] [address] [place], [address] Chloride [Moles/Vol] 105 mmol/L Normal 98-107 [facility] Comment on above: Order Comment: 514.1 Performed By: #### L 100.0500, L101.9900, L500.2500, L5000.0010 ####[facility] [address] [place], [address] CO2 [Moles/Vol] 31.0 mmol/L Normal 21.0-32.0 [facility] Comment on above: Order Comment: 514.1 Performed By: #### L 100.0500, L101.9900, L500.2500, L5000.0010 ####[facility] [address] [place], [address] Creatinine [Mass/Vol] 1.00 mg/dL Normal 0.55-1.02 [facility] Comment on above: Order Comment: 514.1 Result Comment: The validity of the calculated GFR GFRAA in patients over70 years has not been determined. Clinical correlation isessential. Performed By: #### L 100.0500, L101.9900, L500.2500, L5000.0010 ####[facility] [address] [place], [address] EST GFR - AA 70 mL/min Normal >60 [facility] Comment on above: Order Comment: 514.1 Result Comment: Afri can Martiniquais GFR Calc Performed By: #### L 100.0500, L101.9900, L500.2500, L5000.0010 ####[facility] [address] [place], [address] GAP 4 Low 5-15 [facility] Comment on above: Order Comment: 514.1 Performed By: #### L 100.0500, L101.9900, L500.2500, L5000.0010 ####[facility] [address] [place], [address] GFR/1.73 sq M.predicted among non-blacks MDRD (S/P/Bld) [Vol rate/Area] 58 mL/min/{1.73_m2} Low >60 [facility] Comment on above: Order Comment: 514.1 Result Comment: Non- GFR Calc Performed By: #### L 100.0500, L101.9900, L500.2500, L5000.0010 ####[facility] [address] [place], [address] Glucose [Mass/Vol] 98 mg/dL Normal 74-106 [facility] Comment on above: Order Comment: 514.1 Performed By: #### L 100.0500, L101.9900, L500.2500, L5000.0010 ####[facility] [address] [place], [address] Potassium [Moles/Vol] 4.4 mmol/L Normal 3.5-5.1 [facility] Comment on above: Order Comment: 514.1 Performed By: #### L 100.0500, L101.9900, L500.2500, L5000.0010 ####[facility] [address] [place], [address] Sodium [Moles/Vol] 140 mmol/L Normal 136-145 [facility] Comment on above: Order Comment: 514.1 Performed By: #### L 100.0500, L101.9900, L500.2500, L5000.0010 ####[facility] [address] [place], [address] Urea nitrogen [Mass/Vol] 34 mg/dL High 7-18 [facility] Comment on above: Order Comment: 514.1 Performed By: #### L 100.0500, L101.9900, L500.2500, L5000.0010 ####[facility] [address] [place], [address] CBC-Complete Blood Cnt No Di ffon 01-21-2024 Erythrocyte distribution width (RBC) [Ratio] 17.9 % High 11.6-14.6 [facility] Comment on above: Order Comment: 514.1 Performed By: #### L 100.0500, L101.9900, L500.2500, L5000.0010 ####[facility] [address] [place], [address] Hematocrit (Bld) [Volume fraction] 26.9 % Low 37-47 [facility] Comment on above: Order Comment: 514.1 Performed By: #### L 100.0500, L101.9900, L500.2500, L5000.0010 ####[facility] [address] [place], [address] Hemoglobin (Bld) [Mass/Vol] 8.1 g/dL Low 12.0-15.0 [facility] Comment on above: Order Comment: 514.1 Performed By: #### L 100.0500, L101.9900, L500.2500, L5000.0010 ####[facility] [address] [place], [address] MCH (RBC) [Entitic mass] 25.7 pg Low 27.0-32.0 [facility] Comment on above: Order Comment: 514.1 Performed By: #### L 100.0500, L101.9900, L500.2500, L5000.0010 ####[facility] [address] [place], [address] MCHC (RBC) [Mass/Vol] 30.1 g/dL Low 32-36 [facility] Comment on above: Order Comment: 514.1 Performed By: #### L 100.0500, L101.9900, L500.2500, L5000.0010 ####[facility] [address] [place], [address] MCV (RBC) [Entitic vol] 85.4 fL Normal 81-99 [facility] Comment on above: Order Comment: 514.1 Performed By: #### L 100.0500, L101.9900, L500.2500, L5000.0010 ####[facility] [address] [place], [address] Platelet mean volume (Bld) [Entitic vol] 9.9 fL Normal 6.2-12.0 [facility] Comment on above: Order Comment: 514.1 Performed By: #### L 100.0500, L101.9900, L500.2500, L5000.0010 ####[facility] [address] [place], [address] Platelets (Bld) [#/Vol] 180 10*3/uL Normal 150-450 [facility] Comment on above: Order Comment: 514.1 Performed By: #### L 100.0500, L101.9900, L500.2500, L5000.0010 ####[facility] [address] [place], [address] RBC (Bld) [#/Vol] 3.15 10*6/uL Low 4.2-5.4 [facility] Comment on above: Order Comment: 514.1 Performed By: #### L 100.0500, L101.9900, L500.2500, L5000.0010 ####[facility] [address] [place], [address] RDW SD 55.3 fl High 35.1-43.9 [facility] Comment on above: Order Comment: 514.1 Performed By: #### L 100.0500, L101.9900, L500.2500, L5000.0010 ####[facility] [address] [place], [address] WBC (Bld) [#/Vol] 9.5 10*3/uL Normal 4.4-11.0 [facility] Comment on above: Order Comment: 514.1 Performed By: #### L 100.0500, L101.9900, L500.2500, L5000.0010 ####[facility] [address] [place], [address] Erythrocyte Sed Rateon 01-20 SED RATE 21 mm/hr Normal 0-30 [facility] Comment on above: Order Comment: 514.1 Performed By: #### L 100.0500, L101.9900, L500.2500, L5000.0010 ####[facility] [address] [place], [address] CRPon 01-16-2024 C-REACTIVE PROT 91.00 mg/L High 0.0-3.0 [facility] Comment on above: Order Comment: 514-1 Result Comment: C-Re active Protein (CRP) provides useful information for thediagnosis, therapy and monitoring of inflammatory processesand associated diseases. For the evaluation of Relative Riskfor Cardiovascular Disease, a High Sensitivity CRP (HSCRP)should be ordered. Performed By: #### L 501.6710 ####[facility] [address] [place], [address] Basic Metabolic Profile (BMP )on 01-14-2024 BUN/CRE 29.6 RATIO High 10-20 [facility] Comment on above: Order Comment: 514-1 Performed By: #### L 101.9900, L500.2500, L501.8820, L100.0500 ####[facility] [address] [place], [address] CA,Total 7.4 mg/dL Low 8.5-10.1 [facility] Comment on above: Order Comment: 514-1 Performed By: #### L 101.9900, L500.2500, L501.8820, L100.0500 ####[facility] [address] [place], [address] Chloride [Moles/Vol] 105 mmol/L Normal 98-107 [facility] Comment on above: Order Comment: 514-1 Performed By: #### L 101.9900, L500.2500, L501.8820, L100.0500 ####[facility] [address] [place], [address] CO2 [Moles/Vol] 29.0 mmol/L Normal 21.0-32.0 [facility] Comment on above: Order Comment: 514-1 Performed By: #### L 101.9900, L500.2500, L501.8820, L100.0500 ####[facility] [address] [place], [address] Creatinine [Mass/Vol] 0.98 mg/dL Normal 0.55-1.02 [facility] Comment on above: Order Comment: 514-1 Result Comment: The validity of the calculated GFR GFRAA in patients over70 years has not been determined. Clinical correlation isessential. Performed By: #### L 101.9900, L500.2500, L501.8820, L100.0500 ####[facility] [address] [place], [address] EST GFR - AA 71 mL/min Normal >60 [facility] Comment on above: Order Comment: 514-1 Result Comment: Afri can Martiniquais GFR Calc Performed By: #### L 101.9900, L500.2500, L501.8820, L100.0500 ####[facility] [address] [place], [address] GAP 9 Normal 5-15 [facility] Comment on above: Order Comment: 514-1 Performed By: #### L 101.9900, L500.2500, L501.8820, L100.0500 ####[facility] [address] [place], [address] GFR/1.73 sq M.predicted among non-blacks MDRD (S/P/Bld) [Vol rate/Area] 59 mL/min/{1.73_m2} Low >60 [facility] Comment on above: Order Comment: 514-1 Result Comment: Non- GFR Calc Performed By: #### L 101.9900, L500.2500, L501.8820, L100.0500 ####[facility] [address] [place], [address] Glucose [Mass/Vol] 74 mg/dL Normal 74-106 [facility] Comment on above: Order Comment: 514-1 Performed By: #### L 101.9900, L500.2500, L501.8820, L100.0500 ####[facility] [address] [place], [address] Potassium [Moles/Vol] 3.4 mmol/L Low 3.5-5.1 [facility] Comment on above: Order Comment: 514-1 Performed By: #### L 101.9900, L500.2500, L501.8820, L100.0500 ####[facility] [address] [place], [address] Sodium [Moles/Vol] 143 mmol/L Normal 136-145 [facility] Comment on above: Order Comment: 514-1 Performed By: #### L 101.9900, L500.2500, L501.8820, L100.0500 ####[facility] [address] [place], [address] Urea nitrogen [Mass/Vol] 29 mg/dL High 7-18 [facility] Comment on above: Order Comment: 514-1 Performed By: #### L 101.9900, L500.2500, L501.8820, L100.0500 ####[facility] [address] [place], [address] CBC-Complete Blood Cnt No Di ffon 01-14-2024 Erythrocyte distribution width (RBC) [Ratio] 17.5 % High 11.6-14.6 [facility] Comment on above: Order Comment: 514-1 Performed By: #### L 101.9900, L500.2500, L501.8820, L100.0500 ####[facility] [address] [place], [address] Hematocrit (Bld) [Volume fraction] 25.2 % Low 37-47 [facility] Comment on above: Order Comment: 514-1 Performed By: #### L 101.9900, L500.2500, L501.8820, L100.0500 ####[facility] [address] [place], [address] Hemoglobin (Bld) [Mass/Vol] 7.7 g/dL Low 12.0-15.0 [facility] Comment on above: Order Comment: 514-1 Performed By: #### L 101.9900, L500.2500, L501.8820, L100.0500 ####[facility] [address] [place], [address] MCH (RBC) [Entitic mass] 26.1 pg Low 27.0-32.0 [facility] Comment on above: Order Comment: 514-1 Performed By: #### L 101.9900, L500.2500, L501.8820, L100.0500 ####[facility] [address] [place], [address] MCHC (RBC) [Mass/Vol] 30.6 g/dL Low 32-36 [facility] Comment on above: Order Comment: 514-1 Performed By: #### L 101.9900, L500.2500, L501.8820, L100.0500 ####[facility] [address] [place], [address] MCV (RBC) [Entitic vol] 85.4 fL Normal 81-99 [facility] Comment on above: Order Comment: 514-1 Performed By: #### L 101.9900, L500.2500, L501.8820, L100.0500 ####[facility] [address] [place], [address] Platelet mean volume (Bld) [Entitic vol] 11.0 fL Normal 6.2-12.0 [facility] Comment on above: Order Comment: 514-1 Performed By: #### L 101.9900, L500.2500, L501.8820, L100.0500 ####[facility] [address] [place], [address] Platelets (Bld) [#/Vol] 162 10*3/uL Normal 150-450 [facility] Comment on above: Order Comment: 514-1 Performed By: #### L 101.9900, L500.2500, L501.8820, L100.0500 ####[facility] [address] [place], [address] RBC (Bld) [#/Vol] 2.95 10*6/uL Low 4.2-5.4 [facility] Comment on above: Order Comment: 514-1 Performed By: #### L 101.9900, L500.2500, L501.8820, L100.0500 ####[facility] [address] [place], [address] RDW SD 54.9 fl High 35.1-43.9 [facility] Comment on above: Order Comment: 514-1 Performed By: #### L 101.9900, L500.2500, L501.8820, L100.0500 ####[facility] [address] [place], [address] WBC (Bld) [#/Vol] 8.0 10*3/uL Normal 4.4-11.0 [facility] Comment on above: Order Comment: 514-1 Performed By: #### L 101.9900, L500.2500, L501.8820, L100.0500 ####[facility] [address] [place], [address] Erythrocyte Sed Rateon 01-13 SED RATE 12 mm/hr Normal 0-30 [facility] Comment on above: Order Comment: 514- Performed By: #### L 101.9900, L500.2500, L501.8820, L100.0500 ####[facility] [address] [place], [address] Vancomycin, Trough Levelon 1 VANCO, TROUGH 30.8 ug/mL High 5.0-15.0 [facility] Comment on above: Order Comment: 0800 Result Comment: VANC OMYCIN STANDARED DRUG THERAPY TROUGH LEVEL: 5.0 - 15.0 mg/LVANCOMYCIN HIGH INTENSITY THERAPY TROUGH LEVEL: 15.0 - 20.0 mg/LHigh Intensity therapy recommended for serious lifethreatening infections include:- Etjpdyivpc-Srkfqcmurdch-Dywvdooqm (Ventilator/Healtcare Associated)-SepsisPLEASE CONTACT PHARMACY SERVICES (#8280) FOR INTERPRETATIONOF RESULTS. Performed By: #### L 101.9900, L500.2500, L501.8820, L100.0500 ####[facility] [address] [place], [address] Basic Metabolic Profile (BMP )on 01-09-2024 BUN/CRE 29.8 RATIO High 10- [facility] Comment on above: Order Comment: 105.1 Performed By: #### L 100.0500, L500.2500 ####[facility] [address] [place], [address] CA,Total 8.3 mg/dL Low 8.5-10.1 [facility] Comment on above: Order Comment: 105.1 Performed By: #### L 100.0500, L500.2500 ####[facility] [address] [place], [address] Chloride [Moles/Vol] 100 mmol/L Normal 98-107 [facility] Comment on above: Order Comment: 105.1 Performed By: #### L 100.0500, L500.2500 ####[facility] [address] [place], [address] CO2 [Moles/Vol] 37.0 mmol/L High 21.0-32.0 [facility] Comment on above: Order Comment: 105.1 Performed By: #### L 100.0500, L500.2500 ####[facility] [address] [place], [address] Creatinine [Mass/Vol] 1.24 mg/dL High 0.55-1.02 [facility] Comment on above: Order Comment: 105.1 Result Comment: The validity of the calculated GFR GFRAA in patients over70 years has not been determined. Clinical correlation isessential. Performed By: #### L 100.0500, L500.2500 ####[facility] [address] [place], [address] EST GFR - AA 54 mL/min Low >60 [facility] Comment on above: Order Comment: 105.1 Result Comment: Afri can Martiniquais GFR Calc Performed By: #### L 100.0500, L500.2500 ####[facility] [address] [place], [address] GAP 4 Low 5-15 [facility] Comment on above: Order Comment: 105.1 Performed By: #### L 100.0500, L500.2500 ####[facility] [address] [place], [address] GFR/1.73 sq M.predicted among non-blacks MDRD (S/P/Bld) [Vol rate/Area] 45 mL/min/{1.73_m2} Low >60 [facility] Comment on above: Order Comment: 105.1 Result Comment: Non- GFR Calc Performed By: #### L 100.0500, L500.2500 ####[facility] [address] [place], [address] Glucose [Mass/Vol] 193 mg/dL High 74-106 [facility] Comment on above: Order Comment: 105.1 Result Comment: Fast ing Glucose result greater than or equal to 126 mg/dLsuggests DIABETES MELLITUS per A.D.A. criteria. Performed By: #### L 100.0500, L500.2500 ####[facility] [address] [place], [address] Potassium [Moles/Vol] 3.4 mmol/L Low 3.5-5.1 [facility] Comment on above: Order Comment: 105.1 Result Comment: Slig ht Hemolysis, Result may be falsely increased. Performed By: #### L 100.0500, L500.2500 ####[facility] [address] [place], [address] Sodium [Moles/Vol] 141 mmol/L Normal 136-145 [facility] Comment on above: Order Comment: 105.1 Performed By: #### L 100.0500, L500.2500 ####[facility] [address] [place], [address] Urea nitrogen [Mass/Vol] 37 mg/dL High 7-18 [facility] Comment on above: Order Comment: 105.1 Performed By: #### L 100.0500, L500.2500 ####[facility] [address] [place], [address] BUN Normal 7-18 [facility] Comment on above: Result Comment: Canc elled via OM: Order cancelled - Patient discharged Performed By: #### L 500.2500 ####[facility] [address] [place], [address] BUN/CRE Normal 10-20 [facility] Comment on above: Result Comment: Canc elled via OM: Order cancelled - Patient discharged Performed By: #### L 500.2500 ####[facility] [address] [place], [address] CA,Total Normal 8.5-10.1 [facility] Comment on above: Result Comment: Canc elled via OM: Order cancelled - Patient discharged Performed By: #### L 500.2500 ####[facility] [address] [place], [address] CL Normal 98-107 [facility] Comment on above: Result Comment: Canc elled via OM: Order cancelled - Patient discharged Performed By: #### L 500.2500 ####[facility] [address] [place], [address] CO2 Normal 21.0-32.0 [facility] Comment on above: Result Comment: Canc elled via OM: Order cancelled - Patient discharged Performed By: #### L 500.2500 ####[facility] [address] [place], [address] CREAT,SERUM Normal 0.55-1.02 [facility] Comment on above: Result Comment: Canc elled via OM: Order cancelled - Patient discharged Performed By: #### L 500.2500 ####[facility] [address] [place], [address] EST GFR Normal >60 [facility] Comment on above: Result Comment: Canc elled via OM: Order cancelled - Patient discharged Performed By: #### L 500.2500 ####[facility] [address] [place], [address] EST GFR - AA Normal >60 [facility] Comment on above: Result Comment: Canc elled via OM: Order cancelled - Patient discharged Performed By: #### L 500.2500 ####[facility] [address] [place], [address] GAP Normal 5-15 [facility] Comment on above: Result Comment: Canc elled via OM: Order cancelled - Patient discharged Performed By: #### L 500.2500 ####[facility] [address] [place], [address] GLU Normal 74-106 [facility] Comment on above: Result Comment: Canc elled via OM: Order cancelled - Patient discharged Performed By: #### L 500.2500 ####[facility] [address] [place], [address] Potassium Normal 3.5-5.1 [facility] Comment on above: Result Comment: Canc elled via OM: Order cancelled - Patient discharged Performed By: #### L 500.2500 ####[facility] [address] [place], [address] Basic Metabolic Profile (BMP) Normal 136-145 [facility] Comment on above: Result Comment: Canc elled via OM: Order cancelled - Patient discharged Performed By: #### L 500.2500 ####[facility] [address] [place], [address] CBC-Complete Blood Cnt No Di ffon 01-09-2024 Erythrocyte distribution width (RBC) [Ratio] 17.6 % High 11.6-14.6 [facility] Comment on above: Order Comment: 105.1 Performed By: #### L 100.0500, L500.2500 ####[facility] [address] [place], [address] Hematocrit (Bld) [Volume fraction] 32.6 % Low 37-47 [facility] Comment on above: Order Comment: 105.1 Performed By: #### L 100.0500, L500.2500 ####[facility] [address] [place], [address] Hemoglobin (Bld) [Mass/Vol] 9.7 g/dL Low 12.0-15.0 [facility] Comment on above: Order Comment: 105.1 Performed By: #### L 100.0500, L500.2500 ####[facility] [address] [place], [address] MCH (RBC) [Entitic mass] 25.7 pg Low 27.0-32.0 [facility] Comment on above: Order Comment: 105.1 Performed By: #### L 100.0500, L500.2500 ####[facility] [address] [place], [address] MCHC (RBC) [Mass/Vol] 29.8 g/dL Low 32-36 [facility] Comment on above: Order Comment: 105.1 Performed By: #### L 100.0500, L500.2500 ####[facility] [address] [place], [address] MCV (RBC) [Entitic vol] 86.2 fL Normal 81-99 [facility] Comment on above: Order Comment: 105.1 Performed By: #### L 100.0500, L500.2500 ####[facility] [address] [place], [address] Platelet mean volume (Bld) [Entitic vol] 10.5 fL Normal 6.2-12.0 [facility] Comment on above: Order Comment: 105.1 Performed By: #### L 100.0500, L500.2500 ####[facility] [address] [place], [address] Platelets (Bld) [#/Vol] 243 10*3/uL Normal 150-450 [facility] Comment on above: Order Comment: 105.1 Performed By: #### L 100.0500, L500.2500 ####[facility] [address] [place], [address] RBC (Bld) [#/Vol] 3.78 10*6/uL Low 4.2-5.4 [facility] Comment on above: Order Comment: 105.1 Performed By: #### L 100.0500, L500.2500 ####[facility] [address] [place], [address] RDW SD 54.8 fl High 35.1-43.9 [facility] Comment on above: Order Comment: 105.1 Performed By: #### L 100.0500, L500.2500 ####[facility] [address] [place], [address] WBC (Bld) [#/Vol] 15.9 10*3/uL High 4.4-11.0 [facility] Comment on above: Order Comment: 105.1 Performed By: #### L 100.0500, L500.2500 ####[facility] [address] [place], [address] Basic Metabolic Profile (BMP )on 01-08-2024 BUN/CRE 28.4 RATIO High 10-20 [facility] Comment on above: Performed By: #### L 500.2500 ####[facility] [address] [place], [address] CA,Total 8.2 mg/dL Low 8.5-10.1 [facility] Comment on above: Performed By: #### L 500.2500 ####[facility] [address] [place], [address] Chloride [Moles/Vol] 100 mmol/L Normal 98-107 [facility] Comment on above: Performed By: #### L 500.2500 ####[facility] [address] [place], [address] CO2 [Moles/Vol] 36.0 mmol/L High 21.0-32.0 [facility] Comment on above: Performed By: #### L 500.2500 ####[facility] [address] [place], [address] Creatinine [Mass/Vol] 1.34 mg/dL High 0.55-1.02 [facility] Comment on above: Result Comment: The validity of the calculated GFR GFRAA in patients over70 years has not been determined. Clinical correlation isessential. Performed By: #### L 500.2500 ####[facility] [address] [place], [address] ECRCL 49.74 ml/min Normal [facility] Comment on above: Performed By: #### L 500.2500 ####[facility] [address] [place], [address] EST GFR - AA 50 mL/min Low >60 [facility] Comment on above: Result Comment: Afri can Martiniquais GFR Calc Performed By: #### L 500.2500 ####[facility] [address] [place] [address] GAP 5 Normal 5-15 [facility] Comment on above: Performed By: #### L 500.2500 ####[facility] [address] [place] [address] GFR/1.73 sq M.predicted among non-blacks MDRD (S/P/Bld) [Vol rate/Area] 41 mL/min/{1.73_m2} Low >60 [facility] Comment on above: Result Comment: Non- GFR Calc Performed By: #### L 500.2500 ####[facility] [address] [place], [address] Glucose [Mass/Vol] 210 mg/dL High 74-106 [facility] Comment on above: Result Comment: Gluc ose result greater than or equal to 200 mg/dLsuggests DIABETES MELLITUS per A.D.A. criteria. Performed By: #### L 500.2500 ####[facility] [address] [place], [address] Potassium [Moles/Vol] 3.9 mmol/L Normal 3.5-5.1 [facility] Comment on above: Performed By: #### L 500.2500 ####[facility] [address] [place], [address] Sodium [Moles/Vol] 141 mmol/L Normal 136-145 [facility] Comment on above: Performed By: #### L 500.2500 ####[facility] [address] [place], [address] Urea nitrogen [Mass/Vol] 38 mg/dL High 7-18 [facility] Comment on above: Performed By: #### L 500.2500 ####[facility] [address] [place], [address] CXR for Line Placementon CXR for Line Placement Normal [facility] Chest 1 View (Portable)on Chest 1 View (Portable) Normal [facility] Basic Metabolic Profile (BMP )on 01-07-2024 BUN/CRE 27.8 RATIO High 10-20 [facility] Comment on above: Performed By: #### L 500.2500 ####[facility] [address] [place], [address] CA,Total 8.1 mg/dL Low 8.5-10.1 [facility] Comment on above: Performed By: #### L 500.2500 ####[facility] [address] [place], [address] Chloride [Moles/Vol] 101 mmol/L Normal 98-107 [facility] Comment on above: Performed By: #### L 500.2500 ####[facility] [address] [place], [address] CO2 [Moles/Vol] 34.0 mmol/L High 21.0-32.0 [facility] Comment on above: Performed By: #### L 500.2500 ####[facility] [address] [place], [address] Creatinine [Mass/Vol] 1.26 mg/dL High 0.55-1.02 [facility] Comment on above: Result Comment: The validity of the calculated GFR GFRAA in patients over70 years has not been determined. Clinical correlation isessential. Performed By: #### L 500.2500 ####[facility] [address] [place], [address] ECRCL 52.57 ml/min Normal [facility] Comment on above: Performed By: #### L 500.2500 ####[facility] [address] [facility] [address] EST GFR - AA 53 mL/min Low >60 [facility] Comment on above: Result Comment: Afri can Martiniquais GFR Calc Performed By: #### L 500.2500 ####[facility] [address] [place], [address] GAP 7 Normal 5-15 [facility] Comment on above: Performed By: #### L 500.2500 ####[facility] [address] [place], [address] GFR/1.73 sq M.predicted among non-blacks MDRD (S/P/Bld) [Vol rate/Area] 44 mL/min/{1.73_m2} Low >60 [facility] Comment on above: Result Comment: Non- GFR Calc Performed By: #### L 500.2500 ####[facility] [address] [place], [address] Glucose [Mass/Vol] 211 mg/dL High 74-106 [facility] Comment on above: Result Comment: Gluc ose result greater than or equal to 200 mg/dLsuggests DIABETES MELLITUS per A.D.A. criteria. Performed By: #### L 500.2500 ####[facility] [address] [place], [address] Potassium [Moles/Vol] 3.5 mmol/L Normal 3.5-5.1 [facility] Comment on above: Performed By: #### L 500.2500 ####[facility] [address] [place], [address] Sodium [Moles/Vol] 141 mmol/L Normal 136-145 [facility] Comment on above: Performed By: #### L 500.2500 ####[facility] [address] [place], [address] Urea nitrogen [Mass/Vol] 35 mg/dL High 7-18 [facility] Comment on above: Performed By: #### L 500.2500 ####[facility] [address] [place], [address] CDIFF (PCR)on 01-07-2024 CDIFF Normal [facility] Comment on above: Performed By: #### M 100.6796, M100.6795 ####[facility] [address] [place], [address] Clostridium Diff Toxin/Agon 01-07-2024 CDIFF (EIA) Normal [facility] Comment on above: Performed By: #### M 100.6796, M100.6795 ####[facility] [address] [place], [address] Culture, Blood (WB)on 2023 CUB No growth in 5 days. Normal [facility] Comment on above: Performed By: #### M 200.1000 ####[facility] [address] [place], [address] Vancomycin, Random Levelon 0 01-07-2024 VANCO, RANDOM 21.4 ug/mL High 0.0-15.0 [facility] Comment on above: Order Comment: Comme nts: Please draw with AM labs Result Comment: VANC OMYCIN STANDARD DRUG THERAPY: CRITICAL VALUE IS > 15.0 mg/LVANCOMYCIN HIGH INTENSITY THERAPY: CRITICAL VALUE IS > 20.0 mg/LPLEASE CONTACT PHARMACY SERVICES (#3422) FOR INTERPRETATIONOF RESULTS. THIS RESULT DOES NOT REPRESENT A PEAK OR TROUGHLEVEL FOR THIS DRUG. Performed By: #### L 501.8850 ####[facility] [address] [place], [address] Basic Metabolic Profile (BMP )on 01-06-2024 BUN/CRE 23.4 RATIO High 10-20 [facility] Comment on above: Performed By: #### L 500.2500 ####[facility] [address] [place], [address] CA,Total 8.2 mg/dL Low 8.5-10.1 [facility] Comment on above: Performed By: #### L 500.2500 ####[facility] [address] [place], [address] Chloride [Moles/Vol] 102 mmol/L Normal 98-107 [facility] Comment on above: Performed By: #### L 500.2500 ####[facility] [address] [place], [address] CO2 [Moles/Vol] 31.0 mmol/L Normal 21.0-32.0 [facility] Comment on above: Performed By: #### L 500.2500 ####[facility] [address] [place], [address] Creatinine [Mass/Vol] 1.24 mg/dL High 0.55-1.02 [facility] Comment on above: Result Comment: The validity of the calculated GFR GFRAA in patients over70 years has not been determined. Clinical correlation isessential. Performed By: #### L 500.2500 ####[facility] [address] [place], [address] ECRCL 53.36 ml/min Normal [facility] Comment on above: Performed By: #### L 500.2500 ####[facility] [address] [place], [address] EST GFR - AA 54 mL/min Low >60 [facility] Comment on above: Result Comment: Afri can Martiniquais GFR Calc Performed By: #### L 500.2500 ####[facility] [address] [place], [address] GAP 7 Normal 5-15 [facility] Comment on above: Performed By: #### L 500.2500 ####[facility] [address] [place], [address] GFR/1.73 sq M.predicted among non-blacks MDRD (S/P/Bld) [Vol rate/Area] 45 mL/min/{1.73_m2} Low >60 [facility] Comment on above: Result Comment: Non- GFR Calc Performed By: #### L 500.2500 ####[facility] [address] [place], [address] Glucose [Mass/Vol] 282 mg/dL High 74-106 [facility] Comment on above: Result Comment: Gluc ose result greater than or equal to 200 mg/dLsuggests DIABETES MELLITUS per A.D.A. criteria. Performed By: #### L 500.2500 ####[facility] [address] [place], [address] Potassium [Moles/Vol] 3.1 mmol/L Low 3.5-5.1 [facility] Comment on above: Performed By: #### L 500.2500 ####[facility] [address] [place], [address] Sodium [Moles/Vol] 140 mmol/L Normal 136-145 [facility] Comment on above: Performed By: #### L 500.2500 ####[facility] [address] [place], [address] Urea nitrogen [Mass/Vol] 29 mg/dL High 7-18 [facility] Comment on above: Performed By: #### L 500.2500 ####[facility] [address] [place], [address] CBC-Complete Blood Cnt No Tanna lott 01-05-2024 Erythrocyte distribution width (RBC) [Ratio] 17.7 % High 11.6-14.6 [facility] Comment on above: Result Comment: OVER LAPPING- CBCD ORDERED Performed By: #### L 500.4050, L100.0500 ####[facility] [address] [place], [address] Hematocrit (Bld) [Volume fraction] 30.5 % Low 37-47 [facility] Comment on above: Result Comment: OVER LAPPING- CBCD ORDERED Performed By: #### L 500.4050, L100.0500 ####[facility] [address] [place], [address] Hemoglobin (Bld) [Mass/Vol] 9.1 g/dL Low 12.0-15.0 [facility] Comment on above: Result Comment: OVER LAPPING- CBCD ORDERED Performed By: #### L 500.4050, L100.0500 ####[facility] [address] [place], [address] MCH (RBC) [Entitic mass] 25.3 pg Low 27.0-32.0 [facility] Comment on above: Result Comment: OVER LAPPING- CBCD ORDERED Performed By: #### L 500.4050, L100.0500 ####[facility] [address] [place], [address] MCHC (RBC) [Mass/Vol] 29.8 g/dL Low 32-36 [facility] Comment on above: Result Comment: OVER LAPPING- CBCD ORDERED Performed By: #### L 500.4050, L100.0500 ####[facility] [address] [place], [address] MCV (RBC) [Entitic vol] 85.0 fL Normal 81-99 [facility] Comment on above: Result Comment: OVER LAPPING- CBCD ORDERED Performed By: #### L 500.4050, L100.0500 ####[facility] [address] [place], [address] Platelet mean volume (Bld) [Entitic vol] 9.1 fL Normal 6.2-12.0 [facility] Comment on above: Performed By: #### L 500.4050, L100.0500 ####[facility] [address] [place], [address] Platelets (Bld) [#/Vol] 209 10*3/uL Normal 150-450 [facility] Comment on above: Result Comment: OVER LAPPING- CBCD ORDERED Performed By: #### L 500.4050, L100.0500 ####[facility] [address] [place], [address] RBC (Bld) [#/Vol] 3.59 10*6/uL Low 4.2-5.4 [facility] Comment on above: Result Comment: OVER LAPPING- CBCD ORDERED Performed By: #### L 500.4050, L100.0500 ####[facility] [address] [place], [address] RDW SD 55.3 fl High 35.1-43.9 [facility] Comment on above: Result Comment: OVER LAPPING- CBCD ORDERED Performed By: #### L 500.4050, L100.0500 ####[facility] [address] [place], [address] WBC (Bld) [#/Vol] 6.0 10*3/uL Normal 4.4-11.0 [facility] Comment on above: Result Comment: OVER LAPPING- CBCD ORDERED Performed By: #### L 500.4050, L100.0500 ####[facility] [address] [place], [address] Comprehensive Metabolic Prof ilon 01-05-2024 Albumin [Mass/Vol] 1.8 g/dL Low 3.2-5.0 [facility] Comment on above: Performed By: #### L 500.4050, L100.0500 ####[facility] [address] [place], [address] Albumin/Globulin [Mass ratio] 0.7 {ratio} Low 0.9-2.4 [facility] Comment on above: Performed By: #### L 500.4050, L100.0500 ####[facility] [address] [place], [address] ALK P 139 U/L High 45-117 [facility] Comment on above: Performed By: #### L 500.4050, L100.0500 ####[facility] [address] [place], [address] ALT [Catalytic activity/Vol] 19 U/L Normal 13-56 [facility] Comment on above: Performed By: #### L 500.4050, L100.0500 ####[facility] [address] [place], [address] AST [Catalytic activity/Vol] 20 U/L Normal 15-37 [facility] Comment on above: Performed By: #### L 500.4050, L100.0500 ####[facility] [address] [place], [address] Bilirubin [Mass/Vol] 0.20 mg/dL Normal 0.20-1.00 [facility] Comment on above: Result Comment: For patients on eltrombopag therapy, use of Dimension [place] TBIL is not recommended. Performed By: #### L 500.4050, L100.0500 ####[facility] [address] [place], [address] BUN/CRE 22.7 RATIO High 10-20 [facility] Comment on above: Performed By: #### L 500.4050, L100.0500 ####[facility] [address] [place], [address] CA,Total 8.0 mg/dL Low 8.5-10.1 [facility] Comment on above: Performed By: #### L 500.4050, L100.0500 ####[facility] [address] [place], [address] Chloride [Moles/Vol] 106 mmol/L Normal 98-107 [facility] Comment on above: Performed By: #### L 500.4050, L100.0500 ####[facility] [address] [place], [address] CO2 [Moles/Vol] 28.0 mmol/L Normal 21.0-32.0 [facility] Comment on above: Performed By: #### L 500.4050, L100.0500 ####[facility] [address] [place], [address] Creatinine [Mass/Vol] 1.19 mg/dL High 0.55-1.02 [facility] Comment on above: Result Comment: The validity of the calculated GFR GFRAA in patients over70 years has not been determined. Clinical correlation isessential. Performed By: #### L 500.4050, L100.0500 ####[facility] [address] [place], [address] ECRCL 55.58 ml/min Normal [facility] Comment on above: Performed By: #### L 500.4050, L100.0500 ####[facility] [address] [place], [address] EST GFR - AA 57 mL/min Low >60 [facility] Comment on above: Result Comment: Afri can Martiniquais GFR Calc Performed By: #### L 500.4050, L100.0500 ####[facility] [address] [place], [address] GAP 8 Normal 5-15 [facility] Comment on above: Performed By: #### L 500.4050, L100.0500 ####[facility] [address] [place], [address] GFR/1.73 sq M.predicted among non-blacks MDRD (S/P/Bld) [Vol rate/Area] 47 mL/min/{1.73_m2} Low >60 [facility] Comment on above: Result Comment: Non- GFR Calc Performed By: #### L 500.4050, L100.0500 ####[facility] [address] [place], [address] Globulin (S) [Mass/Vol] 2.7 g/dL Normal 2.2-4.2 [facility] Comment on above: Performed By: #### L 500.4050, L100.0500 ####[facility] [address] [place], [address] Glucose [Mass/Vol] 253 mg/dL High 74-106 [facility] Comment on above: Result Comment: Gluc ose result greater than or equal to 200 mg/dLsuggests DIABETES MELLITUS per A.D.A. criteria. Performed By: #### L 500.4050, L100.0500 ####[facility] [address] [place], [address] Potassium [Moles/Vol] 3.4 mmol/L Low 3.5-5.1 [facility] Comment on above: Performed By: #### L 500.4050, L100.0500 ####[facility] [address] [place], [address] Sodium [Moles/Vol] 142 mmol/L Normal 136-145 [facility] Comment on above: Performed By: #### L 500.4050, L100.0500 ####[facility] [address] [place], [address] T PROT 4.5 g/dL Low 6.4-8.2 [facility] Comment on above: Performed By: #### L 500.4050, L100.0500 ####[facility] [address] [place], [address] Urea nitrogen [Mass/Vol] 27 mg/dL High 7-18 [facility] Comment on above: Performed By: #### L 500.4050, L100.0500 ####[facility] [address] [place], [address]( Vancomycin, Random Levelon 0 - VANCO, RANDOM 24.4 ug/mL High 0.0-15.0 [facility] Comment on above: Result Comment: VANC OMYCIN STANDARD DRUG THERAPY: CRITICAL VALUE IS > 15.0 mg/LVANCOMYCIN HIGH INTENSITY THERAPY: CRITICAL VALUE IS > 20.0 mg/LPLEASE CONTACT PHARMACY SERVICES (#5511) FOR INTERPRETATIONOF RESULTS. THIS RESULT DOES NOT REPRESENT A PEAK OR TROUGHLEVEL FOR THIS DRUG. Performed By: #### L 501.8850 ####[facility] [address] [place], [address] CBC W/Diff, Automatedon 09-2 Absolute Lymph 0.74 X10 3/uL Low 0.83-4.51 [facility] Comment on above: Performed By: #### L 100.0100 ####[facility] [address] [place], [address] Absolute Neut 4.8 X10 3/uL Normal 2.0-7.7 [facility] Comment on above: Performed By: #### L 100.0100 ####[facility] [address] [place], [address] Basophils/100 WBC (Bld) 0.2 % Normal 0-1 [facility] Comment on above: Performed By: #### L 100.0100 ####[facility] [address] [place], [address] Eosinophils/100 WBC (Bld) 0.0 % Normal 0-5 [facility] Comment on above: Performed By: #### L 100.0100 ####[facility] [address] [place], [address] Erythrocyte distribution width (RBC) [Ratio] 17.7 % High 11.6-14.6 [facility] Comment on above: Performed By: #### L 100.0100 ####[facility] [address] [place], [address] Hematocrit (Bld) [Volume fraction] 30.0 % Low 37-47 [facility] Comment on above: Performed By: #### L 100.0100 ####[facility] [address] [place], [address] Hemoglobin (Bld) [Mass/Vol] 9.0 g/dL Low 12.0-15.0 [facility] Comment on above: Performed By: #### L 100.0100 ####[facility] [address] [place], [address] IG% 1.000 High 0.0-0.9 [facility] Comment on above: Result Comment: IG% - Immature Granulocytes (promyelocytes, myelocytes andmetamyelocytes) > 1% indicates that a LEFT SHIFT is Present. Performed By: #### L 100.0100 ####[facility] [address] [place], [address] Lymphocytes/100 WBC (Bld) 12.9 % Low 19-41 [facility] Comment on above: Performed By: #### L 100.0100 ####[facility] [address] [place], [address] MCH (RBC) [Entitic mass] 25.3 pg Low 27.0-32.0 [facility] Comment on above: Performed By: #### L 100.0100 ####[facility] [address] [place], [address] MCHC (RBC) [Mass/Vol] 30.0 g/dL Low 32-36 [facility] Comment on above: Performed By: #### L 100.0100 ####[facility] [address] [place], [address] MCV (RBC) [Entitic vol] 84.3 fL Normal 81-99 [facility] Comment on above: Performed By: #### L 100.0100 ####[facility] [address] [place], [address] Monocytes/100 WBC (Bld) 2.4 % Normal 0-10 [facility] Comment on above: Performed By: #### L 100.0100 ####[facility] [address] [place], [address] Neutrophils/100 WBC (Bld) 83.5 % High 47-70 [facility] Comment on above: Performed By: #### L 100.0100 ####[facility] [address] [place], [address] Nucleated RBC (Bld) [#/Vol] 0 10*3/uL Normal 0-5 [facility] Comment on above: Performed By: #### L 100.0100 ####[facility] [address] [place], [address] Platelet mean volume (Bld) [Entitic vol] 9.4 fL Normal 6.2-12.0 [facility] Comment on above: Performed By: #### L 100.0100 ####[facility] [address] [place], [address] Platelets (Bld) [#/Vol] 219 10*3/uL Normal 150-450 [facility] Comment on above: Performed By: #### L 100.0100 ####[facility] [address] [place], [address] RBC (Bld) [#/Vol] 3.56 10*6/uL Low 4.2-5.4 [facility] Comment on above: Performed By: #### L 100.0100 ####[facility] [address] [place], [address] RDW SD 54.4 fl High 35.1-43.9 [facility] Comment on above: Performed By: #### L 100.0100 ####[facility] [address] [place], [address] WBC (Bld) [#/Vol] 5.8 10*3/uL Normal 4.4-11.0 [facility] Comment on above: Performed By: #### L 100.0100 ####[facility] [address] [place], [address] Comprehensive Metabolic [facility] 01-04-2024 Albumin [Mass/Vol] 1.7 g/dL Low 3.2-5.0 [facility] Comment on above: Performed By: #### L 500.4050 ####[facility] [address] [place], [address] Albumin/Globulin [Mass ratio] 0.6 {ratio} Low 0.9-2.4 [facility] Comment on above: Performed By: #### L 500.4050 ####[facility] [address] [place], [address] ALK P 130 U/L High 45-117 [facility] Comment on above: Performed By: #### L 500.4050 ####[facility] [address] [place], [address] ALT [Catalytic activity/Vol] 17 U/L Normal 13-56 [facility] Comment on above: Performed By: #### L 500.4050 ####[facility] [address] [place], [address] AST [Catalytic activity/Vol] 21 U/L Normal 15-37 [facility] Comment on above: Performed By: #### L 500.4050 ####[facility] [address] [place], [address] Bilirubin [Mass/Vol] 0.30 mg/dL Normal 0.20-1.00 [facility] Comment on above: Result Comment: For patients on eltrombopag therapy, use of Dimension Bosworth TBIL is not recommended. Performed By: #### L 500.4050 ####[facility] [address] [place], [address] BUN/CRE 24.8 RATIO High 10-20 [facility] Comment on above: Performed By: #### L 500.4050 ####[facility] [address] [place], [address] CA,Total 7.9 mg/dL Low 8.5-10.1 [facility] Comment on above: Performed By: #### L 500.4050 ####[facility] [address] [place], [address] Chloride [Moles/Vol] 105 mmol/L Normal 98-107 [facility] Comment on above: Performed By: #### L 500.4050 ####[facility] [address] [place], [address] CO2 [Moles/Vol] 29.0 mmol/L Normal 21.0-32.0 [facility] Comment on above: Performed By: #### L 500.4050 ####[facility] [address] [place], [address] Creatinine [Mass/Vol] 1.09 mg/dL High 0.55-1.02 [facility] Comment on above: Result Comment: The validity of the calculated GFR GFRAA in patients over70 years has not been determined. Clinical correlation isessential. Performed By: #### L 500.4050 ####[facility] [address] [place], [address] ECRCL 63.06 ml/min Normal [facility] Comment on above: Performed By: #### L 500.4050 ####[facility] [address] [place], [address] EST GFR - AA 63 mL/min Normal >60 [facility] Comment on above: Result Comment: Afri can Martiniquais GFR Calc Performed By: #### L 500.4050 ####[facility] [address] [place], [address] GAP 6 Normal 5-15 [facility] Comment on above: Performed By: #### L 500.4050 ####[facility] [address] [place], [address] GFR/1.73 sq M.predicted among non-blacks MDRD (S/P/Bld) [Vol rate/Area] 52 mL/min/{1.73_m2} Low >60 [facility] Comment on above: Result Comment: Non- GFR Calc Performed By: #### L 500.4050 ####[facility] [address] [place], [address] Globulin (S) [Mass/Vol] 2.9 g/dL Normal 2.2-4.2 [facility] Comment on above: Performed By: #### L 500.4050 ####[facility] [address] [place], [address] Glucose [Mass/Vol] 233 mg/dL High 74-106 [facility] Comment on above: Result Comment: Gluc ose result greater than or equal to 200 mg/dLsuggests DIABETES MELLITUS per A.D.A. criteria. Performed By: #### L 500.4050 ####[facility] [address] [place], [address] Potassium [Moles/Vol] 3.3 mmol/L Low 3.5-5.1 [facility] Comment on above: Performed By: #### L 500.4050 ####[facility] [address] [place], [address] Sodium [Moles/Vol] 140 mmol/L Normal 136-145 [facility] Comment on above: Performed By: #### L 500.4050 ####[facility] [address] [place], [address] T PROT 4.6 g/dL Low 6.4-8.2 [facility] Comment on above: Performed By: #### L 500.4050 ####[facility] [address] [place], [address] Urea nitrogen [Mass/Vol] 27 mg/dL High 7-18 [facility] Comment on above: Performed By: #### L 500.4050 ####[facility] [address] [place], [address] Urine Cultureon 01-04-2024 URC Normal [facility] Comment on above: Performed By: #### L 400.0001, M100.2200, M100.678 ####[facility] [address] [place], [address] Vancomycin, Random Levelon 0 01-04-2024 VANCO, RANDOM 29.0 ug/mL High 0.0-15.0 [facility] Comment on above: Result Comment: VANC OMYCIN STANDARD DRUG THERAPY: CRITICAL VALUE IS > 15.0 mg/LVANCOMYCIN HIGH INTENSITY THERAPY: CRITICAL VALUE IS > 20.0 mg/LPLEASE CONTACT PHARMACY SERVICES (#4450) FOR INTERPRETATIONOF RESULTS. THIS RESULT DOES NOT REPRESENT A PEAK OR TROUGHLEVEL FOR THIS DRUG. Performed By: #### L 501.8850 ####[facility] [address] [place], [address] CBC W/Diff, Automatedon -2 Absolute Lymph 1.06 X10 3/uL Normal 0.83-4.51 [facility] Comment on above: Performed By: #### L 100.0100 ####[facility] [address] [place], [address] Absolute Neut 11.3 X10 3/uL High 2.0-7.7 [facility] Comment on above: Performed By: #### L 100.0100 ####[facility] [address] [place], [address] Basophils/100 WBC (Bld) 0.2 % Normal 0-1 [facility] Comment on above: Performed By: #### L 100.0100 ####[facility] [address] [place], [address] Eosinophils/100 WBC (Bld) 0.0 % Normal 0-5 [facility] Comment on above: Performed By: #### L 100.0100 ####[facility] [address] [place], [address] Erythrocyte distribution width (RBC) [Ratio] 18.1 % High 11.6-14.6 [facility] Comment on above: Performed By: #### L 100.0100 ####[facility] [address] [place], [address] Hematocrit (Bld) [Volume fraction] 33.7 % Low 37-47 [facility] Comment on above: Performed By: #### L 100.0100 ####[facility] [address] [place], [address] Hemoglobin (Bld) [Mass/Vol] 10.0 g/dL Low 12.0-15.0 [facility] Comment on above: Performed By: #### L 100.0100 ####[facility] [address] [place], [address] IG% 0.600 Normal 0.0-0.9 [facility] Comment on above: Result Comment: IG% - Immature Granulocytes (promyelocytes, myelocytes andmetamyelocytes) > 1% indicates that a LEFT SHIFT is Present. Performed By: #### L 100.0100 ####[facility] [address] [place], [address] Lymphocytes/100 WBC (Bld) 8.2 % Low 19-41 [facility] Comment on above: Performed By: #### L 100.0100 ####[facility] [address] [place], [address] MCH (RBC) [Entitic mass] 25.7 pg Low 27.0-32.0 [facility] Comment on above: Performed By: #### L 100.0100 ####[facility] [address] [place], [address] MCHC (RBC) [Mass/Vol] 29.7 g/dL Low 32-36 [facility] Comment on above: Performed By: #### L 100.0100 ####[facility] [address] [place], [address] MCV (RBC) [Entitic vol] 86.6 fL Normal 81-99 [facility] Comment on above: Performed By: #### L 100.0100 ####[facility] [address] [place], [address] Monocytes/100 WBC (Bld) 3.5 % Normal 0-10 [facility] Comment on above: Performed By: #### L 100.0100 ####[facility] [address] [place], [address] Neutrophils/100 WBC (Bld) 87.5 % High 47-70 [facility] Comment on above: Performed By: #### L 100.0100 ####[facility] [address] [place], [address] Nucleated RBC (Bld) [#/Vol] 0 10*3/uL Normal 0-5 [facility] Comment on above: Performed By: #### L 100.0100 ####[facility] [address] [place], [address] Platelet mean volume (Bld) [Entitic vol] 9.4 fL Normal 6.2-12.0 [facility] Comment on above: Performed By: #### L 100.0100 ####[facility] [address] [place], [address] Platelets (Bld) [#/Vol] 287 10*3/uL Normal 150-450 [facility] Comment on above: Performed By: #### L 100.0100 ####[facility] [address] [place], [address] RBC (Bld) [#/Vol] 3.89 10*6/uL Low 4.2-5.4 [facility] Comment on above: Performed By: #### L 100.0100 ####[facility] [address] [place], [address] RDW SD 57.3 fl High 35.1-43.9 [facility] Comment on above: Performed By: #### L 100.0100 ####[facility] [address] [place], [address] WBC (Bld) [#/Vol] 12.9 10*3/uL High 4.4-11.0 [facility] Comment on above: Performed By: #### L 100.0100 ####[facility] [address] [place], [address] Comprehensive Metabolic Prof ilon 01-03-2024 Albumin [Mass/Vol] 1.8 g/dL Low 3.2-5.0 [facility] Comment on above: Performed By: #### L 500.4050 ####[facility] [address] [place], [address] Albumin/Globulin [Mass ratio] 0.6 {ratio} Low 0.9-2.4 [facility] Comment on above: Performed By: #### L 500.4050 ####[facility] [address] [place], [address] ALK P 141 U/L High 45-117 [facility] Comment on above: Performed By: #### L 500.4050 ####[facility] [address] [place], [address] ALT [Catalytic activity/Vol] 18 U/L Normal 13-56 [facility] Comment on above: Performed By: #### L 500.4050 ####[facility] [address] [place], [address] AST [Catalytic activity/Vol] 27 U/L Normal 15-37 [facility] Comment on above: Performed By: #### L 500.4050 ####[facility] [address] [place], [address] Bilirubin [Mass/Vol] 0.30 mg/dL Normal 0.20-1.00 [facility] Comment on above: Result Comment: For patients on eltrombopag therapy, use of Dimension [place] TBIL is not recommended. Performed By: #### L 500.4050 ####[facility] [address] [place], [address] BUN/CRE 25.0 RATIO High 10-20 [facility] Comment on above: Performed By: #### L 500.4050 ####[facility] [address] [place], [address] CA,Total 7.9 mg/dL Low 8.5-10.1 [facility] Comment on above: Performed By: #### L 500.4050 ####[facility] [address] [place], [address] Chloride [Moles/Vol] 107 mmol/L Normal 98-107 [facility] Comment on above: Performed By: #### L 500.4050 ####[facility] [address] [place], [address] CO2 [Moles/Vol] 27.0 mmol/L Normal 21.0-32.0 [facility] Comment on above: Performed By: #### L 500.4050 ####[facility] [address] [place], [address] Creatinine [Mass/Vol] 1.04 mg/dL High 0.55-1.02 [facility] Comment on above: Result Comment: The validity of the calculated GFR GFRAA in patients over70 years has not been determined. Clinical correlation isessential. Performed By: #### L 500.4050 ####[facility] [address] [place], [address] ECRCL 64.35 ml/min Normal [facility] Comment on above: Performed By: #### L 500.4050 ####[facility] [address] [place], [address] EST GFR - AA 66 mL/min Normal >60 [facility] Comment on above: Result Comment: Afri can Martiniquais GFR Calc Performed By: #### L 500.4050 ####[facility] [address] [place], [address] GAP 8 Normal 5-15 [facility] Comment on above: Performed By: #### L 500.4050 ####[facility] [address] [place], [address] GFR/1.73 sq M.predicted among non-blacks MDRD (S/P/Bld) [Vol rate/Area] 55 mL/min/{1.73_m2} Low >60 [facility] Comment on above: Result Comment: Non- GFR Calc Performed By: #### L 500.4050 ####[facility] [address] [place], [address] Globulin (S) [Mass/Vol] 3.0 g/dL Normal 2.2-4.2 [facility] Comment on above: Performed By: #### L 500.4050 ####[facility] [address] [place], [address] Glucose [Mass/Vol] 183 mg/dL High 74-106 [facility] Comment on above: Result Comment: Fast ing Glucose result greater than or equal to 126 mg/dLsuggests DIABETES MELLITUS per A.D.A. criteria. Performed By: #### L 500.4050 ####[facility] [address] [place], [address] Potassium [Moles/Vol] 3.8 mmol/L Normal 3.5-5.1 [facility] Comment on above: Performed By: #### L 500.4050 ####[facility] [address] [place], [address] Sodium [Moles/Vol] 142 mmol/L Normal 136-145 [facility] Comment on above: Performed By: #### L 500.4050 ####[facility] [address] [place], [address] T PROT 4.8 g/dL Low 6.4-8.2 [facility] Comment on above: Performed By: #### L 500.4050 ####[facility] [address] [place], [address] Urea nitrogen [Mass/Vol] 26 mg/dL High 7-18 [facility] Comment on above: Performed By: #### L 500.4050 ####[facility] [address] [place], [address] Culture, Blood (WB)on 2023 CUB Normal [facility] Comment on above: Performed By: #### M 200.1000 ####[facility] [address] [place], [place], [id number] Vancomycin, Random Levelon 0 01-03-2024 VANCO, RANDOM 34.5 ug/mL High 0.0-15.0 [facility] Comment on above: Result Comment: VANC OMYCIN STANDARD DRUG THERAPY: CRITICAL VALUE IS > 15.0 mg/LVANCOMYCIN HIGH INTENSITY THERAPY: CRITICAL VALUE IS > 20.0 mg/LPLEASE CONTACT PHARMACY SERVICES (#7969) FOR INTERPRETATIONOF RESULTS. THIS RESULT DOES NOT REPRESENT A PEAK OR TROUGHLEVEL FOR THIS DRUG. Performed By: #### L 501.8850 ####[facility] [address] [place], [place], [address] Basic Metabolic Profile (BMP )on 01-02-2024 BUN Normal 7-18 [facility] Comment on above: Result Comment: @OK TO CANCEL PER C.LUCIA DUPLICATE ORDER Performed By: #### L 500.2500 ####[facility] [address] [place], [place], [address] BUN/CRE Normal 10-20 [facility] Comment on above: Result Comment: @OK TO CANCEL PER C.LUCIA DUPLICATE ORDER Performed By: #### L 500.2500 ####[facility] [address] [place], [address] CA,Total Normal 8.5-10.1 [facility] Comment on above: Result Comment: @OK TO CANCEL PER C.LUCIA DUPLICATE ORDER Performed By: #### L 500.2500 ####[facility] [address] [place], [place], [address] CL Normal 98-107 [facility] Comment on above: Result Comment: @OK TO CANCEL PER C.LUCIA DUPLICATE ORDER Performed By: #### L 500.2500 ####[facility] [address] [place], [address] CO2 Normal 21.0-32.0 [facility] Comment on above: Result Comment: @OK TO CANCEL PER C.LUCIA DUPLICATE ORDER Performed By: #### L 500.2500 ####[facility] [address] [place], [address] CREAT,SERUM Normal 0.55-1.02 [facility] Comment on above: Result Comment: @OK TO CANCEL PER C.LUCIA DUPLICATE ORDER Performed By: #### L 500.2500 ####[facility] [address] [place], [address] EST GFR Normal >60 [facility] Comment on above: Result Comment: @OK TO CANCEL PER C.LUCIA DUPLICATE ORDER Performed By: #### L 500.2500 ####[facility] [address] [place], [address] EST GFR - AA Normal >60 [facility] Comment on above: Result Comment: @OK TO CANCEL PER C.LUCIA DUPLICATE ORDER Performed By: #### L 500.2500 ####[facility] [address] [place], [address] GAP Normal 5-15 [facility] Comment on above: Result Comment: @OK TO CANCEL PER C.LUCIA DUPLICATE ORDER Performed By: #### L 500.2500 ####[facility] [address] [place], [address] GLU Normal 74-106 [facility] Comment on above: Result Comment: @OK TO CANCEL PER C.LUCIA DUPLICATE ORDER Performed By: #### L 500.2500 ####[facility] [address] [place], [address] Potassium Normal 3.5-5.1 [facility] Comment on above: Result Comment: @OK TO CANCEL PER C.LUCIA DUPLICATE ORDER Performed By: #### L 500.2500 ####[facility] [address] [place], [address] Basic Metabolic Profile (BMP) Normal 136-145 [facility] Comment on above: Result Comment: @OK TO CANCEL PER KATARINA DUPLICATE ORDER Performed By: #### L 500.2500 ####[facility] [address] [place], [address] BUN/CRE 35.1 RATIO High 10-20 [facility] Comment on above: Performed By: #### L 500.2500, L501.5200 ####[facility] [address] [place], [address] CA,Total 8.1 mg/dL Low 8.5-10.1 [facility] Comment on above: Performed By: #### L 500.2500, L501.5200 ####[facility] [address] [place], [address] Chloride [Moles/Vol] 108 mmol/L High 98-107 [facility] Comment on above: Performed By: #### L 500.2500, L501.5200 ####[facility] [address] [place], [address] CO2 [Moles/Vol] 29.0 mmol/L Normal 21.0-32.0 [facility] Comment on above: Performed By: #### L 500.2500, L501.5200 ####[facility] [address] [place], [address] Creatinine [Mass/Vol] 0.66 mg/dL Normal 0.55-1.02 [facility] Comment on above: Result Comment: The validity of the calculated GFR GFRAA in patients over70 years has not been determined. Clinical correlation isessential. Performed By: #### L 500.2500, L501.5200 ####[facility] [address] [place], [address] ECRCL 83.81 ml/min Normal [facility] Comment on above: Performed By: #### L 500.2500, L501.5200 ####[facility] [address] [place], [address] EST GFR - AA 113 mL/min Normal >60 [facility] Comment on above: Result Comment: Afri can Martiniquais GFR Calc Performed By: #### L 500.2500, L501.5200 ####[facility] [address] [place], [address] GAP 6 Normal 5-15 [facility] Comment on above: Performed By: #### L 500.2500, L501.5200 ####[facility] [address] [place], [address] GFR/1.73 sq M.predicted among non-blacks MDRD (S/P/Bld) [Vol rate/Area] 93 mL/min/{1.73_m2} Normal >60 [facility] Comment on above: Result Comment: Non- GFR Calc Performed By: #### L 500.2500, L501.5200 ####[facility] [address] [place], [address] Glucose [Mass/Vol] 165 mg/dL High 74-106 [facility] Comment on above: Result Comment: Fast ing Glucose result greater than or equal to 126 mg/dLsuggests DIABETES MELLITUS per A.D.A. criteria. Performed By: #### L 500.2500, L501.5200 ####[facility] [address] [place], [address] Potassium [Moles/Vol] 4.0 mmol/L Normal 3.5-5.1 [facility] Comment on above: Performed By: #### L 500.2500, L501.5200 ####[facility] [address] [place], [address] Sodium [Moles/Vol] 143 mmol/L Normal 136-145 [facility] Comment on above: Performed By: #### L 500.2500, L501.5200 ####[facility] [address] [place], [address] Urea nitrogen [Mass/Vol] 23 mg/dL High 7-18 [facility] Comment on above: Performed By: #### L 500.2500, L501.5200 ####[facility] [address] [place], [address] Consultation - Infectious Dx on 01-02-2024 Consultation - Infectious Dx Normal [facility] Magnesiumon 01-02-2024 Magnesium [Mass/Vol] 1.7 mg/dL Normal 1.6-2.6 [facility] Comment on above: Performed By: #### L 500.2500, L501.5200 ####[facility] [address] [place], [address] Vancomycin, Trough Levelon 0 01-02-2024 VANCO, TROUGH 43.5 ug/mL High 5.0-15.0 [facility] Comment on above: Order Comment: Comme nts: Trough to be drawn 30 mins prior to scheduled [id number] Result Comment: VANC OMYCIN STANDARED DRUG THERAPY TROUGH LEVEL: 5.0 - 15.0 mg/LVANCOMYCIN HIGH INTENSITY THERAPY TROUGH LEVEL: 15.0 - 20.0 mg/LHigh Intensity therapy recommended for serious lifethreatening infections include:- Tbsuearktx-Afqvjvlsytyo-Jigrbclus (Ventilator/Healtcare Associated)-SepsisPLEASE CONTACT PHARMACY SERVICES (#4349) FOR INTERPRETATIONOF RESULTS. Performed By: #### L 501.8820 ####[facility] [address] [place], [address] Alcohol, Blood (Medical)-Ser umon 01-01-2024 SERUM ETOH 5.0 mg/dL Normal [facility] Comment on above: Result Comment: The serum:whole blood ethanol ratio is approximately 1.14and varies slightly with hematocrit.Medical Alcohol reference interval and critical value innon-tolerant individuals; 50 - 100 Impairment 100 Intoxication 100 - 250 Severe Poisoning 250 - 400 Deep/possible fatal coma Performed By: #### L 501.9100, L505.5000, L506.0250 ####[facility] [address] [place], [address] CBC W/Diff, Automatedon 12-09 Absolute Lymph 0.64 X10 3/uL Low 0.83-4.51 [facility] Comment on above: Performed By: #### L 500.4050, L501.9520, L100.0100, L501.2300, L501.5200 ####[facility] [address] [place], [address] Absolute Neut 4.9 X10 3/uL Normal 2.0-7.7 [facility] Comment on above: Performed By: #### L 500.4050, L501.9520, L100.0100, L501.2300, L501.5200 ####[facility] [address] [place], [address] Basophils/100 WBC (Bld) 0.4 % Normal 0-1 [facility] Comment on above: Performed By: #### L 500.4050, L501.9520, L100.0100, L501.2300, L501.5200 ####[facility] [address] [place], [address] Eosinophils/100 WBC (Bld) 0.4 % Normal 0-5 [facility] Comment on above: Performed By: #### L 500.4050, L501.9520, L100.0100, L501.2300, L501.5200 ####[facility] [address] [place], [address] Erythrocyte distribution width (RBC) [Ratio] 17.4 % High 11.6-14.6 [facility] Comment on above: Performed By: #### L 500.4050, L501.9520, L100.0100, L501.2300, L501.5200 ####[facility] [address] [place], [address] Hematocrit (Bld) [Volume fraction] 31.3 % Low 37-47 [facility] Comment on above: Performed By: #### L 500.4050, L501.9520, L100.0100, L501.2300, L501.5200 ####[facility] [address] [place], [address] Hemoglobin (Bld) [Mass/Vol] 9.3 g/dL Low 12.0-15.0 [facility] Comment on above: Performed By: #### L 500.4050, L501.9520, L100.0100, L501.2300, L501.5200 ####[facility] [address] [place], [address] IG% 0.500 Normal 0.0-0.9 [facility] Comment on above: Result Comment: IG% - Immature Granulocytes (promyelocytes, myelocytes andmetamyelocytes) > 1% indicates that a LEFT SHIFT is Present. Performed By: #### L 500.4050, L501.9520, L100.0100, L501.2300, L501.5200 ####[facility] [address] [place], [address] Lymphocytes/100 WBC (Bld) 11.3 % Low 19-41 [facility] Comment on above: Performed By: #### L 500.4050, L501.9520, L100.0100, L501.2300, L501.5200 ####[facility] [address] [place], [address] MCH (RBC) [Entitic mass] 25.3 pg Low 27.0-32.0 [facility] Comment on above: Performed By: #### L 500.4050, L501.9520, L100.0100, L501.2300, L501.5200 ####[facility] [address] [place], [address] MCHC (RBC) [Mass/Vol] 29.7 g/dL Low 32-36 [facility] Comment on above: Performed By: #### L 500.4050, L501.9520, L100.0100, L501.2300, L501.5200 ####[facility] [address] [place], [address] MCV (RBC) [Entitic vol] 85.1 fL Normal 81-99 [facility] Comment on above: Performed By: #### L 500.4050, L501.9520, L100.0100, L501.2300, L501.5200 ####[facility] [address] [place], [address] Monocytes/100 WBC (Bld) 1.1 % Normal 0-10 [facility] Comment on above: Performed By: #### L 500.4050, L501.9520, L100.0100, L501.2300, L501.5200 ####[facility] [address] [place], [address] Neutrophils/100 WBC (Bld) 86.3 % High 47-70 [facility] Comment on above: Performed By: #### L 500.4050, L501.9520, L100.0100, L501.2300, L501.5200 ####[facility] [address] [place], [address] Nucleated RBC (Bld) [#/Vol] 0 10*3/uL Normal 0-5 [facility] Comment on above: Performed By: #### L 500.4050, L501.9520, L100.0100, L501.2300, L501.5200 ####[facility] [address] [place], [address] Platelet mean volume (Bld) [Entitic vol] 9.2 fL Normal 6.2-12.0 [facility] Comment on above: Performed By: #### L 500.4050, L501.9520, L100.0100, L501.2300, L501.5200 ####[facility] [address] [place], [address] Platelets (Bld) [#/Vol] 196 10*3/uL Normal 150-450 [facility] Comment on above: Performed By: #### L 500.4050, L501.9520, L100.0100, L501.2300, L501.5200 ####[facility] [address] [place], [address] RBC (Bld) [#/Vol] 3.68 10*6/uL Low 4.2-5.4 [facility] Comment on above: Performed By: #### L 500.4050, L501.9520, L100.0100, L501.2300, L501.5200 ####[facility] [address] [place], [address] RDW SD 54.6 fl High 35.1-43.9 [facility] Comment on above: Performed By: #### L 500.4050, L501.9520, L100.0100, L501.2300, L501.5200 ####[facility] [address] [place], [address] WBC (Bld) [#/Vol] 5.7 10*3/uL Normal 4.4-11.0 [facility] Comment on above: Performed By: #### L 500.4050, L501.9520, L100.0100, L501.2300, L501.5200 ####[facility] [address] [place], [address] Chest 1 View (Portable)on Chest 1 View (Portable) Normal [facility] Comprehensive Metabolic Prof ilon 01-01-2024 Albumin [Mass/Vol] 1.4 g/dL Low 3.2-5.0 [facility] Comment on above: Performed By: #### L 500.4050, L501.9520, L100.0100, L501.2300, L501.5200 ####[facility] [address] [place], [address] Albumin/Globulin [Mass ratio] 0.5 {ratio} Low 0.9-2.4 [facility] Comment on above: Performed By: #### L 500.4050, L501.9520, L100.0100, L501.2300, L501.5200 ####[facility] [address] [place], [address] ALK P 128 U/L High 45-117 [facility] Comment on above: Performed By: #### L 500.4050, L501.9520, L100.0100, L501.2300, L501.5200 ####[facility] [address] [place], [address] ALT [Catalytic activity/Vol] 12 U/L Low 13-56 [facility] Comment on above: Performed By: #### L 500.4050, L501.9520, L100.0100, L501.2300, L501.5200 ####[facility] [address] [place], [address] AST [Catalytic activity/Vol] 15 U/L Normal 15-37 [facility] Comment on above: Performed By: #### L 500.4050, L501.9520, L100.0100, L501.2300, L501.5200 ####[facility] [address] [place], [address] Bilirubin [Mass/Vol] 0.30 mg/dL Normal 0.20-1.00 [facility] Comment on above: Result Comment: For patients on eltrombopag therapy, use of Dimension [place] TBIL is not recommended. Performed By: #### L 500.4050, L501.9520, L100.0100, L501.2300, L501.5200 ####[facility] [address] [place], [address] BUN/CRE 43.7 RATIO High 10-20 [facility] Comment on above: Performed By: #### L 500.4050, L501.9520, L100.0100, L501.2300, L501.5200 ####[facility] [address] [place], [address] CA,Total 7.4 mg/dL Low 8.5-10.1 [facility] Comment on above: Performed By: #### L 500.4050, L501.9520, L100.0100, L501.2300, L501.5200 ####[facility] [address] [place], [address] Chloride [Moles/Vol] 109 mmol/L High 98-107 [facility] Comment on above: Performed By: #### L 500.4050, L501.9520, L100.0100, L501.2300, L501.5200 ####[facility] [address] [place], [address] CO2 [Moles/Vol] 29.0 mmol/L Normal 21.0-32.0 [facility] Comment on above: Performed By: #### L 500.4050, L501.9520, L100.0100, L501.2300, L501.5200 ####[facility] [address] [place], [address] Creatinine [Mass/Vol] 0.46 mg/dL Low 0.55-1.02 [facility] Comment on above: Result Comment: The validity of the calculated GFR GFRAA in patients over70 years has not been determined. Clinical correlation isessential. Performed By: #### L 500.4050, L501.9520, L100.0100, L501.2300, L501.5200 ####[facility] [address] [place], [address] ECRCL 83.43 ml/min Normal [facility] Comment on above: Performed By: #### L 500.4050, L501.9520, L100.0100, L501.2300, L501.5200 ####[facility] [address] [place], [address] EST GFR - AA 171 mL/min Normal >60 [facility] Comment on above: Result Comment: Afri can Martiniquais GFR Calc Performed By: #### L 500.4050, L501.9520, L100.0100, L501.2300, L501.5200 ####[facility] [address] [place], [address] GAP 5 Normal 5-15 [facility] Comment on above: Performed By: #### L 500.4050, L501.9520, L100.0100, L501.2300, L501.5200 ####[facility] [address] [place], [address] GFR/1.73 sq M.predicted among non-blacks MDRD (S/P/Bld) [Vol rate/Area] 141 mL/min/{1.73_m2} Normal >60 [facility] Comment on above: Result Comment: Non- GFR Calc Performed By: #### L 500.4050, L501.9520, L100.0100, L501.2300, L501.5200 ####[facility] [address] [place], [address] Globulin (S) [Mass/Vol] 3.0 g/dL Normal 2.2-4.2 [facility] Comment on above: Performed By: #### L 500.4050, L501.9520, L100.0100, L501.2300, L501.5200 ####[facility] [address] [place], [address] Glucose [Mass/Vol] 151 mg/dL High 74-106 [facility] Comment on above: Result Comment: Fast ing Glucose result greater than or equal to 126 mg/dLsuggests DIABETES MELLITUS per A.D.A. criteria. Performed By: #### L 500.4050, L501.9520, L100.0100, L501.2300, L501.5200 ####[facility] [address] [place], [address] Potassium [Moles/Vol] 3.7 mmol/L Normal 3.5-5.1 [facility] Comment on above: Performed By: #### L 500.4050, L501.9520, L100.0100, L501.2300, L501.5200 ####[facility] [address] [place], [address] Sodium [Moles/Vol] 143 mmol/L Normal 136-145 [facility] Comment on above: Performed By: #### L 500.4050, L501.9520, L100.0100, L501.2300, L501.5200 ####[facility] [address] [place], [address] T PROT 4.4 g/dL Low 6.4-8.2 [facility] Comment on above: Performed By: #### L 500.4050, L501.9520, L100.0100, L501.2300, L501.5200 ####[facility] [address] [place], [address] Urea nitrogen [Mass/Vol] 20 mg/dL High 7-18 [facility] Comment on above: Performed By: #### L 500.4050, L501.9520, L100.0100, L501.2300, L501.5200 ####[facility] [address] [place], [address] Echo Completeon 01-01-2024 Echo Complete Normal [facility] Magnesiumon 01-01-2024 Magnesium [Mass/Vol] 1.4 mg/dL Low 1.6-2.6 [facility] Comment on above: Performed By: #### L 500.4050, L501.9520, L100.0100, L501.2300, L501.5200 ####[facility] [address] [place], [address] Phosphoruson 01-01-2024 Phosphate [Mass/Vol] 3.4 mg/dL Normal 2.5-4.9 [facility] Comment on above: Performed By: #### L 500.4050, L501.9520, L100.0100, L501.2300, L501.5200 ####[facility] [address] [place], [address] Thyroid Stim Hormone (TSH)on 01-01-2024 TSH 1.650 uIU/mL Normal 0.358-3.740 [facility] Comment on above: Performed By: #### L 500.4050, L501.9520, L100.0100, L501.2300, L501.5200 ####[facility] [address] [place], [address] Urine Drug Screen (VISTA)on 01-01-2024 VISTA UDS PH 6 Normal [facility] Comment on above: Result Comment: AMENDED REPORT 01/01/24 06 VISTA UDS PH previously reported as: 5 Performed By: #### L 501.9100, L505.5000, L506.0250 ####[facility] [address] [place], [address] Venous Blood Gason 4 Blood Gas Type SOLIS Normal [facility] Comment on above: Performed By: #### L 0.0810 ####[facility] [address] [place], [address] CO2 [Moles/Vol] 29 mmol/L Normal 23-33 [facility] Comment on above: Performed By: #### L 8999.0810 ####[facility] [address] [place], [address] FI02 30.0 Normal [facility] Comment on above: Performed By: #### L 0.0810 ####[facility] [address] [place], [address] HCO3 (Bld) [Moles/Vol] 28 mmol/L High 22-26 [facility] Comment on above: Performed By: #### L 8999.0810 ####[facility] [address] [place], [address] O2 Delivery Dev BiPAP Normal [facility] Comment on above: Performed By: #### L 8999.0810 ####[facility] [address] [place], [address] SITE Not entered Normal [facility] Comment on above: Performed By: #### L 0.0810 ####[facility] [address] [place], [address] VBG BE 4 mmol/L High -1.0-3.5 [facility] Comment on above: Performed By: #### L 900.0810 ####[facility] [address] [place], [address] VBG pCO2 38.9 mmHg Low 41-51 [facility] Comment on above: Performed By: #### L 8999.0810 ####[facility] [address] [place], [address] VBG pH 7.47 High 7.32-7.42 [facility] Comment on above: Performed By: #### L 9000.0810 ####[facility] [address] [place], [address] VBG PO2 51 mmHg High 25-40 [facility] Comment on above: Performed By: #### L 9000.0810 ####[facility] [address] [place], [address] VBG SO2 88 High 50-70 [facility] Comment on above: Performed By: #### L 9000.0810 ####[facility] [address] [place], [address] 12 Lead EKGon 12-31-2023 12 Lead EKG Normal [facility] Ammoniaon 12-31-2023 Ammonia (P) [Moles/Vol] 19.0 umol/L Normal 11-32 [facility] Comment on above: Performed By: #### L 503.5510 ####[facility] [address] [place], [address] BNP,B-Type NATRIURETIC PEPTI Larry 12-31-2023 Natriuretic peptide B (Bld) [Mass/Vol] 566.6 pg/mL High 0-100 [facility] Comment on above: Performed By: #### L 503.6620 ####[facility] [address] [place], [address] Blood Gases by CPSon 024 ANUJ TEST Positive Normal [facility] Comment on above: Performed By: #### L 9000.0800 ####[facility] [address] [place], [address] Base excess Calc (Bld) [Moles/Vol] 9 mmol/L High -2 to +2 [facility] Comment on above: Performed By: #### L 9000.0800 ####[facility] [address] [place], [address] Blood Gas Type ART Normal [facility] Comment on above: Performed By: #### L 8999.08 ####[facility] [address] [place], [address] CO2 [Moles/Vol] 34 mmol/L Normal [facility] Comment on above: Performed By: #### L 8999.08 ####[facility] [address] [place], [address] FI02 50.0 Normal [facility] Comment on above: Performed By: #### L 8999.08 ####[facility] [address] [place], [address] HCO3 (Bld) [Moles/Vol] 32.6 mmol/L High 22-26 [facility] Comment on above: Performed By: #### L 8999.08 ####[facility] [address] [place], [address] Mode Not entered Normal [facility] Comment on above: Performed By: #### L 8999.08 ####[facility] [address] [place], [address] O2 Delivery Dev BiPAP Normal [facility] Comment on above: Performed By: #### L 8999.08 ####[facility] [address] [place], [address] pCO2 45.3 mmHg High 35-45 [facility] Comment on above: Performed By: #### L 8999.08 ####[facility] [address] [place], [address] PEEP 6 Normal [facility] Comment on above: Performed By: #### L 8999.08 ####[facility] [address] [place], [address] pH (Bld) 7.47 [pH] High 7.35-7.45 [facility] Comment on above: Performed By: #### L 9000.0800 ####[facility] [address] [place], [address] PIP 14 Normal [facility] Comment on above: Performed By: #### L 9000.0800 ####[facility] [address] [place], [address] PO2 198 mmHG High 75-100 [facility] Comment on above: Performed By: #### L 9000.0800 ####[facility] [address] [place], [address] RR 12 Normal [facility] Comment on above: Performed By: #### L 9000.0800 ####[facility] [address] [place], [address] SITE L Radial Normal [facility] Comment on above: Performed By: #### L 9000.0800 ####[facility] [address] [place], [address] SO2 100 High 95-99 [facility] Comment on above: Performed By: #### L 9000.0800 ####[facility] [address] [place], [address] CBC W/Diff, Automatedon 12-09 Absolute Lymph 1.86 X10 3/uL Normal 0.83-4.51 [facility] Comment on above: Performed By: #### L 100.0100, L501.4020, L300.3900, L300.4310, L500.4050, L503.6005 ####[facility] [address] [place], [address] Absolute Neut 4.9 X10 3/uL Normal 2.0-7.7 [facility] Comment on above: Performed By: #### L 100.0100, L501.4020, L300.3900, L300.4310, L500.4050, L503.6005 ####[facility] [address] [place], [address] Basophils/100 WBC (Bld) 0.7 % Normal 0-1 [facility] Comment on above: Performed By: #### L 100.0100, L501.4020, L300.3900, L300.4310, L500.4050, L503.6005 ####[facility] [address] [place], [address] Eosinophils/100 WBC (Bld) 2.9 % Normal 0-5 [facility] Comment on above: Performed By: #### L 100.0100, L501.4020, L300.3900, L300.4310, L500.4050, L503.6005 ####[facility] [address] [place], [address] Erythrocyte distribution width (RBC) [Ratio] 17.7 % High 11.6-14.6 [facility] Comment on above: Performed By: #### L 100.0100, L501.4020, L300.3900, L300.4310, L500.4050, L503.6005 ####[facility] [address] [place], [place], [address] Hematocrit (Bld) [Volume fraction] 32.8 % Low 37-47 [facility] Comment on above: Performed By: #### L 100.0100, L501.4020, L300.3900, L300.4310, L500.4050, L503.6005 ####[facility] [address] [place], [address] Hemoglobin (Bld) [Mass/Vol] 9.9 g/dL Low 12.0-15.0 [facility] Comment on above: Performed By: #### L 100.0100, L501.4020, L300.3900, L300.4310, L500.4050, L503.6005 ####[facility] [address] [place], [address] IG% 0.400 Normal 0.0-0.9 [facility] Comment on above: Result Comment: IG% - Immature Granulocytes (promyelocytes, myelocytes andmetamyelocytes) > 1% indicates that a LEFT SHIFT is Present. Performed By: #### L 100.0100, L501.4020, L300.3900, L300.4310, L500.4050, L503.6005 ####[facility] [address] [place], [address] Lymphocytes/100 WBC (Bld) 24.3 % Normal 19-41 [facility] Comment on above: Performed By: #### L 100.0100, L501.4020, L300.3900, L300.4310, L500.4050, L503.6005 ####[facility] [address] [place], [address] MCH (RBC) [Entitic mass] 25.8 pg Low 27.0-32.0 [facility] Comment on above: Performed By: #### L 100.0100, L501.4020, L300.3900, L300.4310, L500.4050, L503.6005 ####[facility] [address] [place], [address] MCHC (RBC) [Mass/Vol] 30.2 g/dL Low 32-36 [facility] Comment on above: Performed By: #### L 100.0100, L501.4020, L300.3900, L300.4310, L500.4050, L503.6005 ####[facility] [address] [place], [address] MCV (RBC) [Entitic vol] 85.6 fL Normal 81-99 [facility] Comment on above: Performed By: #### L 100.0100, L501.4020, L300.3900, L300.4310, L500.4050, L503.6005 ####[facility] [address] [place], [address] Monocytes/100 WBC (Bld) 7.8 % Normal 0-10 [facility] Comment on above: Performed By: #### L 100.0100, L501.4020, L300.3900, L300.4310, L500.4050, L503.6005 ####[facility] [address] [place], [address] Neutrophils/100 WBC (Bld) 63.9 % Normal 47-70 [facility] Comment on above: Performed By: #### L 100.0100, L501.4020, L300.3900, L300.4310, L500.4050, L503.6005 ####[facility] [address] [place], [address] Nucleated RBC (Bld) [#/Vol] 0 10*3/uL Normal 0-5 [facility] Comment on above: Performed By: #### L 100.0100, L501.4020, L300.3900, L300.4310, L500.4050, L503.6005 ####[facility] [address] [place], [address] Platelet mean volume (Bld) [Entitic vol] 9.1 fL Normal 6.2-12.0 [facility] Comment on above: Performed By: #### L 100.0100, L501.4020, L300.3900, L300.4310, L500.4050, L503.6005 ####[facility] [address] [place], [address] Platelets (Bld) [#/Vol] 239 10*3/uL Normal 150-450 [facility] Comment on above: Performed By: #### L 100.0100, L501.4020, L300.3900, L300.4310, L500.4050, L503.6005 ####[facility] [address] [place], [address] RBC (Bld) [#/Vol] 3.83 10*6/uL Low 4.2-5.4 [facility] Comment on above: Performed By: #### L 100.0100, L501.4020, L300.3900, L300.4310, L500.4050, L503.6005 ####[facility] [address] [place], [address] RDW SD 55.0 fl High 35.1-43.9 [facility] Comment on above: Performed By: #### L 100.0100, L501.4020, L300.3900, L300.4310, L500.4050, L503.6005 ####[facility] [address] [place], [address] WBC (Bld) [#/Vol] 7.7 10*3/uL Normal 4.4-11.0 [facility] Comment on above: Performed By: #### L 100.0100, L501.4020, L300.3900, L300.4310, L500.4050, L503.6005 ####[facility] [address] [place], [address] Absolute Lymph 2.18 X10 3/uL Normal 0.83-4.51 [facility] Comment on above: Order Comment: 514.1 Performed By: #### L 501.6710, L500.4050, L501.8820, L100.0100 ####[facility] [address] [place], [address] Absolute Neut 5.0 X10 3/uL Normal 2.0-7.7 [facility] Comment on above: Order Comment: 514.1 Performed By: #### L 501.6710, L500.4050, L501.8820, L100.0100 ####[facility] [address] [place], [address] Basophils/100 WBC (Bld) 0.7 % Normal 0-1 [facility] Comment on above: Order Comment: 514.1 Performed By: #### L 501.6710, L500.4050, L501.8820, L100.0100 ####[facility] [address] [place], [address] Eosinophils/100 WBC (Bld) 3.8 % Normal 0-5 [facility] Comment on above: Order Comment: 514.1 Performed By: #### L 501.6710, L500.4050, L501.8820, L100.0100 ####[facility] [address] [place], [address] Erythrocyte distribution width (RBC) [Ratio] 17.8 % High 11.6-14.6 [facility] Comment on above: Order Comment: 514.1 Performed By: #### L 501.6710, L500.4050, L501.8820, L100.0100 ####[facility] [address] [place], [address] Hematocrit (Bld) [Volume fraction] 32.6 % Low 37-47 [facility] Comment on above: Order Comment: 514.1 Performed By: #### L 501.6710, L500.4050, L501.8820, L100.0100 ####[facility] [address] [place], [address] Hemoglobin (Bld) [Mass/Vol] 9.7 g/dL Low 12.0-15.0 [facility] Comment on above: Order Comment: 514.1 Performed By: #### L 501.6710, L500.4050, L501.8820, L100.0100 ####[facility] [address] [place], [address] IG% 0.200 Normal 0.0-0.9 [facility] Comment on above: Order Comment: 514.1 Result Comment: IG% - Immature Granulocytes (promyelocytes, myelocytes andmetamyelocytes) > 1% indicates that a LEFT SHIFT is Present. Performed By: #### L 501.6710, L500.4050, L501.8820, L100.0100 ####[facility] [address] [place], [address] Lymphocytes/100 WBC (Bld) 26.6 % Normal 19-41 [facility] Comment on above: Order Comment: 514.1 Performed By: #### L 501.6710, L500.4050, L501.8820, L100.0100 ####[facility] [address] [place], [address] MCH (RBC) [Entitic mass] 25.7 pg Low 27.0-32.0 [facility] Comment on above: Order Comment: 514.1 Performed By: #### L 501.6710, L500.4050, L501.8820, L100.0100 ####[facility] [address] [place], [address] MCHC (RBC) [Mass/Vol] 29.8 g/dL Low 32-36 [facility] Comment on above: Order Comment: 514.1 Performed By: #### L 501.6710, L500.4050, L501.8820, L100.0100 ####[facility] [address] [place], [address] MCV (RBC) [Entitic vol] 86.2 fL Normal 81-99 [facility] Comment on above: Order Comment: 514.1 Performed By: #### L 501.6710, L500.4050, L501.8820, L100.0100 ####[facility] [address] [place], [address] Monocytes/100 WBC (Bld) 7.4 % Normal 0-10 [facility] Comment on above: Order Comment: 514.1 Performed By: #### L 501.6710, L500.4050, L501.8820, L100.0100 ####[facility] [address] [place], [address] Neutrophils/100 WBC (Bld) 61.3 % Normal 47-70 [facility] Comment on above: Order Comment: 514.1 Performed By: #### L 501.6710, L500.4050, L501.8820, L100.0100 ####[facility] [address] [place], [address] Nucleated RBC (Bld) [#/Vol] 0 10*3/uL Normal 0-5 [facility] Comment on above: Order Comment: 514.1 Performed By: #### L 501.6710, L500.4050, L501.8820, L100.0100 ####[facility] [address] [place], [address] Platelet mean volume (Bld) [Entitic vol] 9.8 fL Normal 6.2-12.0 [facility] Comment on above: Order Comment: 514.1 Performed By: #### L 501.6710, L500.4050, L501.8820, L100.0100 ####[facility] [address] [place], [address] Platelets (Bld) [#/Vol] 220 10*3/uL Normal 150-450 [facility] Comment on above: Order Comment: 514.1 Performed By: #### L 501.6710, L500.4050, L501.8820, L100.0100 ####[facility] [address] [place], [address] RBC (Bld) [#/Vol] 3.78 10*6/uL Low 4.2-5.4 [facility] Comment on above: Order Comment: 514.1 Performed By: #### L 501.6710, L500.4050, L501.8820, L100.0100 ####[facility] [address] [place], [address] RDW SD 55.7 fl High 35.1-43.9 [facility] Comment on above: Order Comment: 514.1 Performed By: #### L 501.6710, L500.4050, L501.8820, L100.0100 ####[facility] [address] [place], [address] WBC (Bld) [#/Vol] 8.2 10*3/uL Normal 4.4-11.0 [facility] Comment on above: Order Comment: 514.1 Performed By: #### L 501.6710, L500.4050, L501.8820, L100.0100 ####[facility] [address] [place], [address] CRPon 12-31-2023 C-REACTIVE PROT 49.30 mg/L High 0.0-3.0 [facility] Comment on above: Order Comment: 514.1 Result Comment: C-Re active Protein (CRP) provides useful information for thediagnosis, therapy and monitoring of inflammatory processesand associated diseases. For the evaluation of Relative Riskfor Cardiovascular Disease, a High Sensitivity CRP (HSCRP)should be ordered. Performed By: #### L 501.6710, L500.4050, L501.8820, L100.0100 ####[facility] [address] [place], [address] Chest 1 View (Portable)on Chest 1 View (Portable) Normal [facility] Comprehensive Metabolic Prof ilon 12-31-2023 Albumin [Mass/Vol] 1.4 g/dL Low 3.2-5.0 [facility] Comment on above: Order Comment: 'TROP ' Serial specimen #1, #2 or #3: 1 Performed By: #### L 100.0100, L501.4020, L300.3900, L300.4310, L500.4050, L503.6005 ####[facility] [address] [place], [address] Albumin/Globulin [Mass ratio] 0.4 {ratio} Low 0.9-2.4 [facility] Comment on above: Order Comment: 'TROP ' Serial specimen #1, #2 or #3: 1 Performed By: #### L 100.0100, L501.4020, L300.3900, L300.4310, L500.4050, L503.6005 ####[facility] [address] [place], [address] ALK P 137 U/L High 45-117 [facility] Comment on above: Order Comment: 'TROP ' Serial specimen #1, #2 or #3: 1 Performed By: #### L 100.0100, L501.4020, L300.3900, L300.4310, L500.4050, L503.6005 ####[facility] [address] [place], [address] ALT [Catalytic activity/Vol] 13 U/L Normal 13-56 [facility] Comment on above: Order Comment: 'TROP ' Serial specimen #1, #2 or #3: 1 Performed By: #### L 100.0100, L501.4020, L300.3900, L300.4310, L500.4050, L503.6005 ####[facility] [address] [place], [address] AST [Catalytic activity/Vol] 21 U/L Normal 15-37 [facility] Comment on above: Order Comment: 'TROP ' Serial specimen #1, #2 or #3: 1 Performed By: #### L 100.0100, L501.4020, L300.3900, L300.4310, L500.4050, L503.6005 ####[facility] [address] [place], [address] Bilirubin [Mass/Vol] 0.30 mg/dL Normal 0.20-1.00 [facility] Comment on above: Order Comment: 'TROP ' Serial specimen #1, #2 or #3: 1 Result Comment: For patients on eltrombopag therapy, use of Dimension [place] TBIL is not recommended. Performed By: #### L 100.0100, L501.4020, L300.3900, L300.4310, L500.4050, L503.6005 ####[facility] [address] [place], [address] BUN/CRE 37.0 RATIO High 10-20 [facility] Comment on above: Order Comment: 'TROP ' Serial specimen #1, #2 or #3: 1 Performed By: #### L 100.0100, L501.4020, L300.3900, L300.4310, L500.4050, L503.6005 ####[facility] [address] [place], [address] CA,Total 7.8 mg/dL Low 8.5-10.1 [facility] Comment on above: Order Comment: 'TROP ' Serial specimen #1, #2 or #3: 1 Performed By: #### L 100.0100, L501.4020, L300.3900, L300.4310, L500.4050, L503.6005 ####[facility] [address] [place], [address] Chloride [Moles/Vol] 106 mmol/L Normal 98-107 [facility] Comment on above: Order Comment: 'TROP ' Serial specimen #1, #2 or #3: 1 Performed By: #### L 100.0100, L501.4020, L300.3900, L300.4310, L500.4050, L503.6005 ####[facility] [address] [place], [address] CO2 [Moles/Vol] 32.0 mmol/L Normal 21.0-32.0 [facility] Comment on above: Order Comment: 'TROP ' Serial specimen #1, #2 or #3: 1 Performed By: #### L 100.0100, L501.4020, L300.3900, L300.4310, L500.4050, L503.6005 ####[facility] [address] [place], [address] Creatinine [Mass/Vol] 0.54 mg/dL Low 0.55-1.02 [facility] Comment on above: Order Comment: 'TROP ' Serial specimen #1, #2 or #3: 1 Result Comment: The validity of the calculated GFR GFRAA in patients over70 years has not been determined. Clinical correlation isessential. Performed By: #### L 100.0100, L501.4020, L300.3900, L300.4310, L500.4050, L503.6005 ####[facility] [address] [place], [place], [id number]) EST GFR - AA 141 mL/min Normal >60 [facility] Comment on above: Order Comment: 'TROP ' Serial specimen #1, #2 or #3: 1 Result Comment: Afri can Martiniquais GFR Calc Performed By: #### L 100.0100, L501.4020, L300.3900, L300.4310, L500.4050, L503.6005 ####[facility] [address] [place], [address] GAP 4 Low 5-15 [facility] Comment on above: Order Comment: 'TROP ' Serial specimen #1, #2 or #3: 1 Performed By: #### L 100.0100, L501.4020, L300.3900, L300.4310, L500.4050, L503.6005 ####[facility] [address] [place], [address] GFR/1.73 sq M.predicted among non-blacks MDRD (S/P/Bld) [Vol rate/Area] 117 mL/min/{1.73_m2} Normal >60 [facility] Comment on above: Order Comment: 'TROP ' Serial specimen #1, #2 or #3: 1 Result Comment: Non- GFR Calc Performed By: #### L 100.0100, L501.4020, L300.3900, L300.4310, L500.4050, L503.6005 ####[facility] [address] [place], [address] Globulin (S) [Mass/Vol] 3.3 g/dL Normal 2.2-4.2 [facility] Comment on above: Order Comment: 'TROP ' Serial specimen #1, #2 or #3: 1 Performed By: #### L 100.0100, L501.4020, L300.3900, L300.4310, L500.4050, L503.6005 ####[facility] [address] [place], [address] Glucose [Mass/Vol] 139 mg/dL High 74-106 [facility] Comment on above: Order Comment: 'TROP ' Serial specimen #1, #2 or #3: 1 Result Comment: Fast ing Glucose result greater than or equal to 126 mg/dLsuggests DIABETES MELLITUS per A.D.A. criteria. Performed By: #### L 100.0100, L501.4020, L300.3900, L300.4310, L500.4050, L503.6005 ####[facility] [address] [place], [address] Potassium [Moles/Vol] 2.6 mmol/L Invalid Interpretation Code 3.5-5.1 [facility] Comment on above: Order Comment: 'TROP ' Serial specimen #1, #2 or #3: 1 Result Comment: Crit ical Result(s) Called at: 18:38:24 12/31/2023 by:[facility] Results read back by same. Performed By: #### L 100.0100, L501.4020, L300.3900, L300.4310, L500.4050, L503.6005 ####[facility] [address] [place], [address] Sodium [Moles/Vol] 142 mmol/L Normal 136-145 [facility] Comment on above: Order Comment: 'TROP ' Serial specimen #1, #2 or #3: 1 Performed By: #### L 100.0100, L501.4020, L300.3900, L300.4310, L500.4050, L503.6005 ####[facility] [address] [place], [address] T PROT 4.7 g/dL Low 6.4-8.2 [facility] Comment on above: Order Comment: 'TROP ' Serial specimen #1, #2 or #3: 1 Performed By: #### L 100.0100, L501.4020, L300.3900, L300.4310, L500.4050, L503.6005 ####[facility] [address] [place], [address] Urea nitrogen [Mass/Vol] 20 mg/dL High 7-18 [facility] Comment on above: Order Comment: 'TROP ' Serial specimen #1, #2 or #3: 1 Performed By: #### L 100.0100, L501.4020, L300.3900, L300.4310, L500.4050, L503.6005 ####[facility] [address] [place], [address] Albumin [Mass/Vol] 1.4 g/dL Low 3.2-5.0 [facility] Comment on above: Order Comment: 514.1 Performed By: #### L 501.6710, L500.4050, L501.8820, L100.0100 ####[facility] [address] [place], [address] Albumin/Globulin [Mass ratio] 0.4 {ratio} Low 0.9-2.4 [facility] Comment on above: Order Comment: 514.1 Performed By: #### L 501.6710, L500.4050, L501.8820, L100.0100 ####[facility] [address] [place], [address] ALK P 139 U/L High 45-117 [facility] Comment on above: Order Comment: 514.1 Performed By: #### L 501.6710, L500.4050, L501.8820, L100.0100 ####[facility] [address] [place], [address] ALT [Catalytic activity/Vol] 15 U/L Normal 13-56 [facility] Comment on above: Order Comment: 514.1 Performed By: #### L 501.6710, L500.4050, L501.8820, L100.0100 ####[facility] [address] [place], [address] AST [Catalytic activity/Vol] 21 U/L Normal 15-37 [facility] Comment on above: Order Comment: 514.1 Performed By: #### L 501.6710, L500.4050, L501.8820, L100.0100 ####[facility] [address] [place], [address] Bilirubin [Mass/Vol] 0.30 mg/dL Normal 0.20-1.00 [facility] Comment on above: Order Comment: 514.1 Result Comment: For patients on eltrombopag therapy, use of Dimension [place] TBIL is not recommended. Performed By: #### L 501.6710, L500.4050, L501.8820, L100.0100 ####[facility] [address] [place], [address] BUN/CRE 36.6 RATIO High 10-20 [facility] Comment on above: Order Comment: 514.1 Performed By: #### L 501.6710, L500.4050, L501.8820, L100.0100 ####[facility] [address] [place], [address] CA,Total 7.7 mg/dL Low 8.5-10.1 [facility] Comment on above: Order Comment: 514.1 Performed By: #### L 501.6710, L500.4050, L501.8820, L100.0100 ####[facility] [address] [place], [address] Chloride [Moles/Vol] 106 mmol/L Normal 98-107 [facility] Comment on above: Order Comment: 514.1 Performed By: #### L 501.6710, L500.4050, L501.8820, L100.0100 ####[facility] [address] [place], [address] CO2 [Moles/Vol] 29.0 mmol/L Normal 21.0-32.0 [facility] Comment on above: Order Comment: 514.1 Performed By: #### L 501.6710, L500.4050, L501.8820, L100.0100 ####[facility] [address] [place], [address] Creatinine [Mass/Vol] 0.49 mg/dL Low 0.55-1.02 [facility] Comment on above: Order Comment: 514.1 Result Comment: The validity of the calculated GFR GFRAA in patients over70 years has not been determined. Clinical correlation isessential. Performed By: #### L 501.6710, L500.4050, L501.8820, L100.0100 ####[facility] [address] [place], [address] EST GFR - AA 157 mL/min Normal >60 [facility] Comment on above: Order Comment: 514.1 Result Comment: Afri can Martiniquais GFR Calc Performed By: #### L 501.6710, L500.4050, L501.8820, L100.0100 ####[facility] [address] [place], [address] GAP 7 Normal 5-15 [facility] Comment on above: Order Comment: 514.1 Performed By: #### L 501.6710, L500.4050, L501.8820, L100.0100 ####[facility] [address] [place], [address] GFR/1.73 sq M.predicted among non-blacks MDRD (S/P/Bld) [Vol rate/Area] 130 mL/min/{1.73_m2} Normal >60 [facility] Comment on above: Order Comment: 514.1 Result Comment: Non- GFR Calc Performed By: #### L 501.6710, L500.4050, L501.8820, L100.0100 ####[facility] [address] [place], [address] Globulin (S) [Mass/Vol] 3.3 g/dL Normal 2.2-4.2 [facility] Comment on above: Order Comment: 514.1 Performed By: #### L 501.6710, L500.4050, L501.8820, L100.0100 ####[facility] [address] [place], [address] Glucose [Mass/Vol] 80 mg/dL Normal 74-106 [facility] Comment on above: Order Comment: 514.1 Performed By: #### L 501.6710, L500.4050, L501.8820, L100.0100 ####[facility] [address] [place], [address] Potassium [Moles/Vol] 2.9 mmol/L Low 3.5-5.1 [facility] Comment on above: Order Comment: 514.1 Performed By: #### L 501.6710, L500.4050, L501.8820, L100.0100 ####[facility] [address] [place], [address] Sodium [Moles/Vol] 142 mmol/L Normal 136-145 [facility] Comment on above: Order Comment: 514.1 Performed By: #### L 501.6710, L500.4050, L501.8820, L100.0100 ####[facility] [address] [place], [address] T PROT 4.7 g/dL Low 6.4-8.2 [facility] Comment on above: Order Comment: 514.1 Performed By: #### L 501.6710, L500.4050, L501.8820, L100.0100 ####[facility] [address] [place], [address] Urea nitrogen [Mass/Vol] 18 mg/dL Normal 7-18 [facility] Comment on above: Order Comment: 514.1 Performed By: #### L 501.6710, L500.4050, L501.8820, L100.0100 ####[facility] [address] [place], [address] Emergency Department Summary on 12-31-2023 Emergency Department Summary Normal [facility] Folates, (Folic Acid)on 12-09 FOLATES 10.10 ng/mL Normal 3.1-55.4 [facility] Comment on above: Order Comment: Has P atient had X-rays with Contrast this admission? NN Performed By: #### L 501.9100, L505.5000, L506.0250 ####[facility] [address], [address] H AND P Exam - [facility] 12-31-2023 H&P Exam - Hospitalist Normal [facility] L501.4020on 12-31-2023 TROPONIN-I HS 29 pg/mL Normal 3.0-54.0 [facility] Comment on above: Order Comment: 'TROP ' Serial specimen #1, #2 or #3: 1 Result Comment: Plea se Note: New Test Units and Gender Specific Reference Ranges. For more information see Policy Stat Procedure [place] High Sensitivity Troponin (TNIH) and attachments. Performed By: #### L 100.0100, L501.4020, L300.3900, L300.4310, L500.4050, L503.6005 ####[facility] [address] [place], [address] Lactic Acidon 12-31-2023 Lactate [Moles/Vol] 1.0 mmol/L Normal 0.4-1.9 [facility] Comment on above: Order Comment: Y Performed By: #### L 100.0100, L501.4020, L300.3900, L300.4310, L500.4050, L503.6005 ####[facility] [address], [address] M100.678on 12-31-2023 M100.678 Normal [facility] Comment on above: Performed By: #### L 400.0001, M100.2200, M100.678 ####[facility] [address] [place], [address] Magnesiumon 12-31-2023 Magnesium [Mass/Vol] 1.1 mg/dL Low 1.6-2.6 [facility] Comment on above: Performed By: #### L 501.5200 ####[facility] [address] [place], [address] Partial Thromboplast Timeon 12-31-2023 aPTT Coag (Bld) [Time] 39.9 s High 24.1-36.2 [facility] Comment on above: Performed By: #### L 100.0100, L501.4020, L300.3900, L300.4310, L500.4050, L503.6005 ####[facility] [address] [place], [address] Prothrombin Time w/INRon INR Coag (PPP) [Relative time] 1.8 {INR} Normal [facility] Comment on above: Performed By: #### L 100.0100, L501.4020, L300.3900, L300.4310, L500.4050, L503.6005 ####[facility] [address] [place], [address] PT Coag (PPP) [Time] 20.9 s High 11.7-14.9 [facility] Comment on above: Performed By: #### L 100.0100, L501.4020, L300.3900, L300.4310, L500.4050, L503.6005 ####[facility] [address] [place], [address] Urinalysis, Completeon 12-30 BACTERIA 2+ /hpf Normal None Seen [facility] Comment on above: Order Comment: COLOR OF URINE MAY AFFECT DIPSTICK RESULTS.CATHETER SPECIMEN Performed By: #### L 400.0001, M100.2200, M100.678 ####[facility] [address] [place], [address] Mucus Ql (Urine sed) 2+ /hpf Normal [facility] Comment on above: Order Comment: COLOR OF URINE MAY AFFECT DIPSTICK RESULTS.CATHETER SPECIMEN Performed By: #### L 400.0001, M100.2200, M100.678 ####[facility] [address] [place], [address] RBC 0-5 SEEN Normal 0-5 [facility] Comment on above: Order Comment: COLOR OF URINE MAY AFFECT DIPSTICK RESULTS.CATHETER SPECIMEN Performed By: #### L 400.0001, M100.0, .678 ####[facility] [address] [place], [address] YEAST 2+ /hpf Normal None Seen [facility] Comment on above: Order Comment: COLOR OF URINE MAY AFFECT DIPSTICK RESULTS.CATHETER SPECIMEN Performed By: #### L 400.0001, .2199, ####[facility] [address] [place], [address] WBC 25-50 SEEN Normal 0-5 [facility] Comment on above: Order Comment: COLOR OF URINE MAY AFFECT DIPSTICK RESULTS.CATHETER SPECIMEN Performed By: #### L 400.0001, .2199, ####[facility] [address] [place], [address] BILIRUBIN URINE Negative Normal Negative [facility] Comment on above: Order Comment: COLOR OF URINE MAY AFFECT DIPSTICK RESULTS.CATHETER SPECIMEN Performed By: #### L 400.0001, .2199, ####[facility] [address] [place], [address] Clarity (U) Clear Normal Clear [facility] Comment on above: Order Comment: COLOR OF URINE MAY AFFECT DIPSTICK RESULTS.CATHETER SPECIMEN Performed By: #### L 400.0001, 00.2199, .678 ####[facility] [address] [place], [address] Color (U) Rita Normal Yellow [facility] Comment on above: Order Comment: COLOR OF URINE MAY AFFECT DIPSTICK RESULTS.CATHETER SPECIMEN Performed By: #### L 400.0001, M100.2200, M100.678 ####[facility] [address] [place], [address] GLUCOSE, UR Normal Normal Normal [facility] Comment on above: Order Comment: COLOR OF URINE MAY AFFECT DIPSTICK RESULTS.CATHETER SPECIMEN Performed By: #### L 400.0001, M100.2200, M100.678 ####[facility] [address] [place], [address] KETONE UR Negative Normal Negative [facility] Comment on above: Order Comment: COLOR OF URINE MAY AFFECT DIPSTICK RESULTS.CATHETER SPECIMEN Performed By: #### L 400.0001, M100.0, M1.678 ####[facility] [address] [place], [address] LEUK ESTERASE 100 /ul Abnormal Negative [facility] Comment on above: Order Comment: COLOR OF URINE MAY AFFECT DIPSTICK RESULTS.CATHETER SPECIMEN Performed By: #### L 400.0001, M100.0, M1.678 ####[facility] [address] [place], [address] Nitrite Ql (U) Negative Normal Negative [facility] Comment on above: Order Comment: COLOR OF URINE MAY AFFECT DIPSTICK RESULTS.CATHETER SPECIMEN Performed By: #### L 400.0001, 00.0, .678 ####[facility] [address] [place], [address] OCCULT BLOOD-UR Negative Normal Negative [facility] Comment on above: Order Comment: COLOR OF URINE MAY AFFECT DIPSTICK RESULTS.CATHETER SPECIMEN Performed By: #### L 400.0001, M100.2200, M100.678 ####[facility] [address] [place], [address] pH UR 6.0 Normal 5.0 - 8.0 [facility] Comment on above: Order Comment: COLOR OF URINE MAY AFFECT DIPSTICK RESULTS.CATHETER SPECIMEN Performed By: #### L 400.0001, M100.2200, M100.678 ####[facility] [address] [place], [address] PROT DIPSTX 30 mg/dl Abnormal Negative [facility] Comment on above: Order Comment: COLOR OF URINE MAY AFFECT DIPSTICK RESULTS.CATHETER SPECIMEN Performed By: #### L 400.0001, M100.2200, M100.678 ####[facility] [address] [place], [address] SP.GR. DIPSTX 1.020 Normal 1.002-1.030 [facility] Comment on above: Order Comment: COLOR OF URINE MAY AFFECT DIPSTICK RESULTS.CATHETER SPECIMEN Performed By: #### L 400.0001, M100.2200, M100.678 ####[facility] [address] [place], [address] UROBILI Normal Normal Normal [facility] Comment on above: Order Comment: COLOR OF URINE MAY AFFECT DIPSTICK RESULTS.CATHETER SPECIMEN Performed By: #### L 400.0001, M100.2200, M100.678 ####[facility] [address] [place], [address] EPI,SQUAMOUS 0 SEEN Normal 5-10 [facility] Comment on above: Order Comment: COLOR OF URINE MAY AFFECT DIPSTICK RESULTS.CATHETER SPECIMEN Performed By: #### L 400.0001, M100.2200, M1.678 ####[facility] [address] [place], [address] Vancomycin, Trough Levelon 0 12-31-2023 VANCO, TROUGH 18.5 ug/mL High 5.0-15.0 [facility] Comment on above: Order Comment: 514.1 0500 Result Comment: VANC OMYCIN STANDARED DRUG THERAPY TROUGH LEVEL: 5.0 - 15.0 mg/LVANCOMYCIN HIGH INTENSITY THERAPY TROUGH LEVEL: 15.0 - 20.0 mg/LHigh Intensity therapy recommended for serious lifethreatening infections include:- Fmhplezpwg-Hcrpfdimpexx-Svqqpqrte (Ventilator/Healtcare Associated)-SepsisPLEASE CONTACT PHARMACY SERVICES (#8746) FOR INTERPRETATIONOF RESULTS. Performed By: #### L 501.6710, L500.4050, L501.8820, L100.0100 ####[facility] [address] [place], [address] Vitamin B12on 12-31-2023 Cobalamin (Vitamin B12) [Mass/Vol] 1036 pg/mL High 211-911 [facility] Comment on above: Performed By: #### L 503.0105 ####[facility] [address] [place], [address] CBC W/Diff, Automatedon 12-09 Absolute Lymph 2.21 X10 3/uL Normal 0.83-4.51 [facility] Comment on above: Order Comment: 514-1 Performed By: #### L 500.4050, L100.0100, L501.8820, L501.6710 ####[facility] [address] [place], [address] Absolute Neut 4.9 X10 3/uL Normal 2.0-7.7 [facility] Comment on above: Order Comment: 514-1 Performed By: #### L 500.4050, L100.0100, L501.8820, L501.6710 ####[facility] [address] [place], [address] Basophils/100 WBC (Bld) 0.9 % Normal 0-1 [facility] Comment on above: Order Comment: 514-1 Performed By: #### L 500.4050, L100.0100, L501.8820, L501.6710 ####[facility] [address] [place], [address] Eosinophils/100 WBC (Bld) 2.1 % Normal 0-5 [facility] Comment on above: Order Comment: 514-1 Performed By: #### L 500.4050, L100.0100, L501.8820, L501.6710 ####[facility] [address] [place], [address] Erythrocyte distribution width (RBC) [Ratio] 17.6 % High 11.6-14.6 [facility] Comment on above: Order Comment: 514-1 Performed By: #### L 500.4050, L100.0100, L501.8820, L501.6710 ####[facility] [address] [place], [address] Hematocrit (Bld) [Volume fraction] 32.8 % Low 37-47 [facility] Comment on above: Order Comment: 514-1 Performed By: #### L 500.4050, L100.0100, L501.8820, L501.6710 ####[facility] [address] [place], [address] Hemoglobin (Bld) [Mass/Vol] 10.0 g/dL Low 12.0-15.0 [facility] Comment on above: Order Comment: 514-1 Performed By: #### L 500.4050, L100.0100, L501.8820, L501.6710 ####[facility] [address] [place], [address] IG% 0.500 Normal 0.0-0.9 [facility] Comment on above: Order Comment: 514-1 Result Comment: IG% - Immature Granulocytes (promyelocytes, myelocytes andmetamyelocytes) > 1% indicates that a LEFT SHIFT is Present. Performed By: #### L 500.4050, L100.0100, L501.8820, L501.6710 ####[facility] [address] [place], [address] Lymphocytes/100 WBC (Bld) 27.4 % Normal 19-41 [facility] Comment on above: Order Comment: 514-1 Performed By: #### L 500.4050, L100.0100, L501.8820, L501.6710 ####[facility] [address] [place], [address] MCH (RBC) [Entitic mass] 25.9 pg Low 27.0-32.0 [facility] Comment on above: Order Comment: 514-1 Performed By: #### L 500.4050, L100.0100, L501.8820, L501.6710 ####[facility] [address] [place], [address] MCHC (RBC) [Mass/Vol] 30.5 g/dL Low 32-36 [facility] Comment on above: Order Comment: 514-1 Performed By: #### L 500.4050, L100.0100, L501.8820, L501.6710 ####[facility] [address] [place], [address] MCV (RBC) [Entitic vol] 85.0 fL Normal 81-99 [facility] Comment on above: Order Comment: 514-1 Performed By: #### L 500.4050, L100.0100, L501.8820, L501.6710 ####[facility] [address] [place], [address] Monocytes/100 WBC (Bld) 8.1 % Normal 0-10 [facility] Comment on above: Order Comment: 514-1 Performed By: #### L 500.4050, L100.0100, L501.8820, L501.6710 ####[facility] [address] [place], [address] Neutrophils/100 WBC (Bld) 61.0 % Normal 47-70 [facility] Comment on above: Order Comment: 514-1 Performed By: #### L 500.4050, L100.0100, L501.8820, L501.6710 ####[facility] [address] [place], [address] Nucleated RBC (Bld) [#/Vol] 0 10*3/uL Normal 0-5 [facility] Comment on above: Order Comment: 514-1 Performed By: #### L 500.4050, L100.0100, L501.8820, L501.6710 ####[facility] [address] [place], [address] Platelet mean volume (Bld) [Entitic vol] 9.9 fL Normal 6.2-12.0 [facility] Comment on above: Order Comment: 514-1 Performed By: #### L 500.4050, L100.0100, L501.8820, L501.6710 ####[facility] [address] [place], [address] Platelets (Bld) [#/Vol] 245 10*3/uL Normal 150-450 [facility] Comment on above: Order Comment: 514-1 Performed By: #### L 500.4050, L100.0100, L501.8820, L501.6710 ####[facility] [address] [place], [address] RBC (Bld) [#/Vol] 3.86 10*6/uL Low 4.2-5.4 [facility] Comment on above: Order Comment: 514-1 Performed By: #### L 500.4050, L100.0100, L501.8820, L501.6710 ####[facility] [address] [place], [address] RDW SD 54.4 fl High 35.1-43.9 [facility] Comment on above: Order Comment: 514-1 Performed By: #### L 500.4050, L100.0100, L501.8820, L501.6710 ####[facility] [address] [place], [address] WBC (Bld) [#/Vol] 8.1 10*3/uL Normal 4.4-11.0 [facility] Comment on above: Order Comment: 514-1 Performed By: #### L 500.4050, L100.0100, L501.8820, L501.6710 ####[facility] [address] [place], [address] CRPon 12-28-2023 C-REACTIVE PROT 39.80 mg/L High 0.0-3.0 [facility] Comment on above: Order Comment: 514-1 Result Comment: C-Re active Protein (CRP) provides useful information for thediagnosis, therapy and monitoring of inflammatory processesand associated diseases. For the evaluation of Relative Riskfor Cardiovascular Disease, a High Sensitivity CRP (HSCRP)should be ordered. Performed By: #### L 500.4050, L100.0100, L501.8820, L501.6710 ####[facility] [address] [place], [address] Comprehensive Metabolic Prof ilon 12-28-2023 Albumin [Mass/Vol] 1.4 g/dL Low 3.2-5.0 [facility] Comment on above: Order Comment: 514-1 Performed By: #### L 500.4050, L100.0100, L501.8820, L501.6710 ####[facility] [address] [place], [address] Albumin/Globulin [Mass ratio] 0.4 {ratio} Low 0.9-2.4 [facility] Comment on above: Order Comment: 514-1 Performed By: #### L 500.4050, L100.0100, L501.8820, L501.6710 ####[facility] [address] [place], [address] ALK P 140 U/L High 45-117 [facility] Comment on above: Order Comment: 514-1 Performed By: #### L 500.4050, L100.0100, L501.8820, L501.6710 ####[facility] [address] [place], [address] ALT [Catalytic activity/Vol] 13 U/L Normal 13-56 [facility] Comment on above: Order Comment: 514-1 Performed By: #### L 500.4050, L100.0100, L501.8820, L501.6710 ####[facility] [address] [place], [address] AST [Catalytic activity/Vol] 29 U/L Normal 15-37 [facility] Comment on above: Order Comment: 514-1 Result Comment: Slig ht Hemolysis, Result may be falsely increased. Performed By: #### L 500.4050, L100.0100, L501.8820, L501.6710 ####[facility] [address] [place], [address] Bilirubin [Mass/Vol] 0.30 mg/dL Normal 0.20-1.00 [facility] Comment on above: Order Comment: 514-1 Result Comment: For patients on eltrombopag therapy, use of Dimension [place] TBIL is not recommended. Performed By: #### L 500.4050, L100.0100, L501.8820, L501.6710 ####[facility] [address] [place], [address] BUN/CRE 31.4 RATIO High 10-20 [facility] Comment on above: Order Comment: 514-1 Performed By: #### L 500.4050, L100.0100, L501.8820, L501.6710 ####[facility] [address] [place], [address] CA,Total 7.5 mg/dL Low 8.5-10.1 [facility] Comment on above: Order Comment: 514-1 Performed By: #### L 500.4050, L100.0100, L501.8820, L501.6710 ####[facility] [address] [place], [address] Chloride [Moles/Vol] 105 mmol/L Normal 98-107 [facility] Comment on above: Order Comment: 514-1 Performed By: #### L 500.4050, L100.0100, L501.8820, L501.6710 ####[facility] [address] [place], [address] CO2 [Moles/Vol] 28.0 mmol/L Normal 21.0-32.0 [facility] Comment on above: Order Comment: 514-1 Performed By: #### L 500.4050, L100.0100, L501.8820, L501.6710 ####[facility] [address] [place], [address] Creatinine [Mass/Vol] 0.57 mg/dL Normal 0.55-1.02 [facility] Comment on above: Order Comment: 514-1 Result Comment: The validity of the calculated GFR GFRAA in patients over70 years has not been determined. Clinical correlation isessential. Performed By: #### L 500.4050, L100.0100, L501.8820, L501.6710 ####[facility] [address] [place], [address] EST GFR - AA 132 mL/min Normal >60 [facility] Comment on above: Order Comment: 514-1 Result Comment: Afri can Martiniquais GFR Calc Performed By: #### L 500.4050, L100.0100, L501.8820, L501.6710 ####[facility] [address] [place], [address] GAP 7 Normal 5-15 [facility] Comment on above: Order Comment: 514-1 Performed By: #### L 500.4050, L100.0100, L501.8820, L501.6710 ####[facility] [address] [place], [address] GFR/1.73 sq M.predicted among non-blacks MDRD (S/P/Bld) [Vol rate/Area] 109 mL/min/{1.73_m2} Normal >60 [facility] Comment on above: Order Comment: 514-1 Result Comment: Non- GFR Calc Performed By: #### L 500.4050, L100.0100, L501.8820, L501.6710 ####[facility] [address] [place], [address] Globulin (S) [Mass/Vol] 3.3 g/dL Normal 2.2-4.2 [facility] Comment on above: Order Comment: 514-1 Performed By: #### L 500.4050, L100.0100, L501.8820, L501.6710 ####[facility] [address] [place], [address] Glucose [Mass/Vol] 106 mg/dL Normal 74-106 [facility] Comment on above: Order Comment: 514-1 Result Comment: Fast ing Glucose result from 100 to 125 mg/dLsuggests IMPAIRED HOMEOSTASIS per A.D.A. criteria. Performed By: #### L 500.4050, L100.0100, L501.8820, L501.6710 ####[facility] [address] [place], [address] Potassium [Moles/Vol] 2.7 mmol/L Invalid Interpretation Code 3.5-5.1 [facility] Comment on above: Order Comment: 514-1 Result Comment: Slig ht Hemolysis, Result may be falsely increased.CriticalResult(s) Called at: 08:46:14 12/28/2023 by: Jeri Duong. Results read back by same. Performed By: #### L 500.4050, L100.0100, L501.8820, L501.6710 ####[facility] [address] [place], [address] Sodium [Moles/Vol] 140 mmol/L Normal 136-145 [facility] Comment on above: Order Comment: 514-1 Performed By: #### L 500.4050, L100.0100, L501.8820, L501.6710 ####[facility] [address] [place], [address] T PROT 4.7 g/dL Low 6.4-8.2 [facility] Comment on above: Order Comment: 514-1 Performed By: #### L 500.4050, L100.0100, L501.8820, L501.6710 ####[facility] [address] [place], [address] Urea nitrogen [Mass/Vol] 18 mg/dL Normal 7-18 [facility] Comment on above: Order Comment: 514-1 Performed By: #### L 500.4050, L100.0100, L501.8820, L501.6710 ####[facility] [address] [place], [address] Vancomycin, Trough Levelon 0 12-28-2023 VANCO, TROUGH 12.8 ug/mL Normal 5.0-15.0 [facility] Comment on above: Order Comment: 514-1 0929 Result Comment: VANC OMYCIN STANDARED DRUG THERAPY TROUGH LEVEL: 5.0 - 15.0 mg/LVANCOMYCIN HIGH INTENSITY THERAPY TROUGH LEVEL: 15.0 - 20.0 mg/LHigh Intensity therapy recommended for serious lifethreatening infections include:- Jakyufholw-Vogqxvuaqixn-Ieeyuucmd (Ventilator/Healtcare Associated)-SepsisPLEASE CONTACT PHARMACY SERVICES (#7850) FOR INTERPRETATIONOF RESULTS. Performed By: #### L 500.4050, L100.0100, L501.8820, L501.6710 ####[facility] [address] [place], [address] CBC W/Diff, Automatedon - Absolute Lymph 1.74 X10 3/uL Normal 0.83-4.51 [facility] Comment on above: Order Comment: 514.1 Performed By: #### L 500.4050, L501.8820, L100.0100, L501.6710 ####[facility] [address] [place], [address] Absolute Neut 5.8 X10 3/uL Normal 2.0-7.7 [facility] Comment on above: Order Comment: 514.1 Performed By: #### L 500.4050, L501.8820, L100.0100, L501.6710 ####[facility] [address] [place], [address] Basophils/100 WBC (Bld) 1.0 % Normal 0-1 [facility] Comment on above: Order Comment: 514.1 Performed By: #### L 500.4050, L501.8820, L100.0100, L501.6710 ####[facility] [address] [place], [address] Eosinophils/100 WBC (Bld) 1.4 % Normal 0-5 [facility] Comment on above: Order Comment: 514.1 Performed By: #### L 500.4050, L501.8820, L100.0100, L501.6710 ####[facility] [address] [place], [address] Erythrocyte distribution width (RBC) [Ratio] 17.6 % High 11.6-14.6 [facility] Comment on above: Order Comment: 514.1 Performed By: #### L 500.4050, L501.8820, L100.0100, L501.6710 ####[facility] [address] [place], [address] Hematocrit (Bld) [Volume fraction] 36.1 % Low 37-47 [facility] Comment on above: Order Comment: 514.1 Performed By: #### L 500.4050, L501.8820, L100.0100, L501.6710 ####[facility] [address] [place], [address] Hemoglobin (Bld) [Mass/Vol] 10.5 g/dL Low 12.0-15.0 [facility] Comment on above: Order Comment: 514.1 Performed By: #### L 500.4050, L501.8820, L100.0100, L501.6710 ####[facility] [address] [place], [address] IG% 0.400 Normal 0.0-0.9 [facility] Comment on above: Order Comment: 514.1 Result Comment: IG% - Immature Granulocytes (promyelocytes, myelocytes andmetamyelocytes) > 1% indicates that a LEFT SHIFT is Present. Performed By: #### L 500.4050, L501.8820, L100.0100, L501.6710 ####[facility] [address] [place], [address] Lymphocytes/100 WBC (Bld) 20.8 % Normal 19-41 [facility] Comment on above: Order Comment: 514.1 Performed By: #### L 500.4050, L501.8820, L100.0100, L501.6710 ####[facility] [address] [place], [address] MCH (RBC) [Entitic mass] 25.9 pg Low 27.0-32.0 [facility] Comment on above: Order Comment: 514.1 Performed By: #### L 500.4050, L501.8820, L100.0100, L501.6710 ####[facility] [address] [place], [address] MCHC (RBC) [Mass/Vol] 29.1 g/dL Low 32-36 [facility] Comment on above: Order Comment: 514.1 Performed By: #### L 500.4050, L501.8820, L100.0100, L501.6710 ####[facility] [address] [place], [address] MCV (RBC) [Entitic vol] 88.9 fL Normal 81-99 [facility] Comment on above: Order Comment: 514.1 Performed By: #### L 500.4050, L501.8820, L100.0100, L501.6710 ####[facility] [address] [place], [address] Monocytes/100 WBC (Bld) 6.9 % Normal 0-10 [facility] Comment on above: Order Comment: 514.1 Performed By: #### L 500.4050, L501.8820, L100.0100, L501.6710 ####[facility] [address] [place], [address] Neutrophils/100 WBC (Bld) 69.5 % Normal 47-70 [facility] Comment on above: Order Comment: 514.1 Performed By: #### L 500.4050, L501.8820, L100.0100, L501.6710 ####[facility] [address] [place], [address] Nucleated RBC (Bld) [#/Vol] 0 10*3/uL Normal 0-5 [facility] Comment on above: Order Comment: 514.1 Performed By: #### L 500.4050, L501.8820, L100.0100, L501.6710 ####[facility] [address] [place], [address] Platelet mean volume (Bld) [Entitic vol] 10.0 fL Normal 6.2-12.0 [facility] Comment on above: Order Comment: 514.1 Performed By: #### L 500.4050, L501.8820, L100.0100, L501.6710 ####[facility] [address] [place], [address] Platelets (Bld) [#/Vol] 195 10*3/uL Normal 150-450 [facility] Comment on above: Order Comment: 514.1 Performed By: #### L 500.4050, L501.8820, L100.0100, L501.6710 ####[facility] [address] [place], [address] RBC (Bld) [#/Vol] 4.06 10*6/uL Low 4.2-5.4 [facility] Comment on above: Order Comment: 514.1 Performed By: #### L 500.4050, L501.8820, L100.0100, L501.6710 ####[facility] [address] [place], [address] RDW SD 57.0 fl High 35.1-43.9 [facility] Comment on above: Order Comment: 514.1 Performed By: #### L 500.4050, L501.8820, L100.0100, L501.6710 ####[facility] [address] [place], [address] WBC (Bld) [#/Vol] 8.4 10*3/uL Normal 4.4-11.0 [facility] Comment on above: Order Comment: 514.1 Performed By: #### L 500.4050, L501.8820, L100.0100, L501.6710 ####[facility] [address] [place], [address] CRPon 12-25-2023 C-REACTIVE PROT 80.80 mg/L High 0.0-3.0 [facility] Comment on above: Order Comment: 514.1 Result Comment: C-Re active Protein (CRP) provides useful information for thediagnosis, therapy and monitoring of inflammatory processesand associated diseases. For the evaluation of Relative Riskfor Cardiovascular Disease, a High Sensitivity CRP (HSCRP)should be ordered. Performed By: #### L 500.4050, L501.8820, L100.0100, L501.6710 ####[facility] [address] [place], [address] Comprehensive Metabolic Prof ilon 12-25-2023 Albumin [Mass/Vol] 1.2 g/dL Low 3.2-5.0 [facility] Comment on above: Order Comment: 514.1 Performed By: #### L 500.4050, L501.8820, L100.0100, L501.6710 ####[facility] [address] [place], [address] Albumin/Globulin [Mass ratio] 0.3 {ratio} Low 0.9-2.4 [facility] Comment on above: Order Comment: 514.1 Performed By: #### L 500.4050, L501.8820, L100.0100, L501.6710 ####[facility] [address] [place], [address] ALK P 144 U/L High 45-117 [facility] Comment on above: Order Comment: 514.1 Performed By: #### L 500.4050, L501.8820, L100.0100, L501.6710 ####[facility] [address] [place], [address] ALT [Catalytic activity/Vol] 12 U/L Low 13-56 [facility] Comment on above: Order Comment: 514.1 Performed By: #### L 500.4050, L501.8820, L100.0100, L501.6710 ####[facility] [address] [place], [address] AST [Catalytic activity/Vol] 26 U/L Normal 15-37 [facility] Comment on above: Order Comment: 514.1 Performed By: #### L 500.4050, L501.8820, L100.0100, L501.6710 ####[facility] [address] [place], [address] Bilirubin [Mass/Vol] 0.30 mg/dL Normal 0.20-1.00 [facility] Comment on above: Order Comment: 514.1 Result Comment: For patients on eltrombopag therapy, use of Dimension Bosworth TBIL is not recommended. Performed By: #### L 500.4050, L501.8820, L100.0100, L501.6710 ####[facility] [address] [place], [address] BUN/CRE 33.3 RATIO High 10-20 [facility] Comment on above: Order Comment: 514.1 Performed By: #### L 500.4050, L501.8820, L100.0100, L501.6710 ####[facility] [address] [place], [address] CA,Total 7.3 mg/dL Low 8.5-10.1 [facility] Comment on above: Order Comment: 514.1 Performed By: #### L 500.4050, L501.8820, L100.0100, L501.6710 ####[facility] [address] [place], [address] Chloride [Moles/Vol] 104 mmol/L Normal 98-107 [facility] Comment on above: Order Comment: 514.1 Performed By: #### L 500.4050, L501.8820, L100.0100, L501.6710 ####[facility] [address] [place], [address] CO2 [Moles/Vol] 26.0 mmol/L Normal 21.0-32.0 [facility] Comment on above: Order Comment: 514.1 Performed By: #### L 500.4050, L501.8820, L100.0100, L501.6710 ####[facility] [address] [place], [address] Creatinine [Mass/Vol] 0.54 mg/dL Low 0.55-1.02 [facility] Comment on above: Order Comment: 514.1 Result Comment: The validity of the calculated GFR GFRAA in patients over70 years has not been determined. Clinical correlation isessential. Performed By: #### L 500.4050, L501.8820, L100.0100, L501.6710 ####[facility] [address] [place], [address] EST GFR - AA 141 mL/min Normal >60 [facility] Comment on above: Order Comment: 514.1 Result Comment: Afri can Martiniquais GFR Calc Performed By: #### L 500.4050, L501.8820, L100.0100, L501.6710 ####[facility] [address] [place], [address] GAP 7 Normal 5-15 [facility] Comment on above: Order Comment: 514.1 Performed By: #### L 500.4050, L501.8820, L100.0100, L501.6710 ####[facility] [address] [place], [address] GFR/1.73 sq M.predicted among non-blacks MDRD (S/P/Bld) [Vol rate/Area] 117 mL/min/{1.73_m2} Normal >60 [facility] Comment on above: Order Comment: 514.1 Result Comment: Non- GFR Calc Performed By: #### L 500.4050, L501.8820, L100.0100, L501.6710 ####[facility] [address] [place], [address] Globulin (S) [Mass/Vol] 3.5 g/dL Normal 2.2-4.2 [facility] Comment on above: Order Comment: 514.1 Performed By: #### L 500.4050, L501.8820, L100.0100, L501.6710 ####[facility] [address] [place], [address] Glucose [Mass/Vol] 67 mg/dL Low 74-106 [facility] Comment on above: Order Comment: 514.1 Performed By: #### L 500.4050, L501.8820, L100.0100, L501.6710 ####[facility] [address] [place], [address] Potassium [Moles/Vol] 3.1 mmol/L Low 3.5-5.1 [facility] Comment on above: Order Comment: 514.1 Performed By: #### L 500.4050, L501.8820, L100.0100, L501.6710 ####[facility] [address] [place], [address] Sodium [Moles/Vol] 137 mmol/L Normal 136-145 [facility] Comment on above: Order Comment: 514.1 Performed By: #### L 500.4050, L501.8820, L100.0100, L501.6710 ####[facility] [address] [place], [address] T PROT 4.7 g/dL Low 6.4-8.2 [facility] Comment on above: Order Comment: 514.1 Performed By: #### L 500.4050, L501.8820, L100.0100, L501.6710 ####[facility] [address] [place], [address] Urea nitrogen [Mass/Vol] 18 mg/dL Normal 7-18 [facility] Comment on above: Order Comment: 514.1 Performed By: #### L 500.4050, L501.8820, L100.0100, L501.6710 ####[facility] [address] [place], [address] Vancomycin, Trough Levelon 0 9-17-2024 VANCO, TROUGH 19.3 ug/mL High 5.0-15.0 [facility] Comment on above: Order Comment: 514.1 0500 Result Comment: VANC OMYCIN STANDARED DRUG THERAPY TROUGH LEVEL: 5.0 - 15.0 mg/LVANCOMYCIN HIGH INTENSITY THERAPY TROUGH LEVEL: 15.0 - 20.0 mg/LHigh Intensity therapy recommended for serious lifethreatening infections include:- Cbfuiutlbs-Anfqnhahljbj-Lfmvgbvnp (Ventilator/Healtcare Associated)-SepsisPLEASE CONTACT PHARMACY SERVICES (#2360) FOR INTERPRETATIONOF RESULTS. Performed By: #### L 500.4050, L501.8820, L100.0100, L501.6710 ####[facility] [address] [place], [address] Basic Metabolic Profile (BMP )on 12-24-2023 BUN/CRE 28.6 RATIO High 10-20 [facility] Comment on above: Order Comment: 514-1 Performed By: #### L 500.2500 ####[facility] [address] [place], [address] CA,Total 7.4 mg/dL Low 8.5-10.1 [facility] Comment on above: Order Comment: 514-1 Performed By: #### L 500.2500 ####[facility] [address] [place], [address] Chloride [Moles/Vol] 104 mmol/L Normal 98-107 [facility] Comment on above: Order Comment: 514-1 Performed By: #### L 500.2500 ####[facility] [address] [place], [address] CO2 [Moles/Vol] 27.0 mmol/L Normal 21.0-32.0 [facility] Comment on above: Order Comment: 514-1 Performed By: #### L 500.2500 ####[facility] [address] [place], [address] Creatinine [Mass/Vol] 0.56 mg/dL Normal 0.55-1.02 [facility] Comment on above: Order Comment: 514- Result Comment: The validity of the calculated GFR GFRAA in patients over70 years has not been determined. Clinical correlation isessential. Performed By: #### L 500.2500 ####[facility] [address] [place], [address] EST GFR - AA 136 mL/min Normal >60 [facility] Comment on above: Order Comment: 514- Result Comment: Afri can Martiniquais GFR Calc Performed By: #### L 500.2500 ####[facility] [address] [place], [address] GAP 6 Normal 5-15 [facility] Comment on above: Order Comment: - Performed By: #### L 500.2500 ####[facility] [address] [place], [address] GFR/1.73 sq M.predicted among non-blacks MDRD (S/P/Bld) [Vol rate/Area] 112 mL/min/{1.73_m2} Normal >60 [facility] Comment on above: Order Comment: 514- Result Comment: Non- GFR Calc Performed By: #### L 500.2500 ####[facility] [address] [place], [address] Glucose [Mass/Vol] 82 mg/dL Normal 74-106 [facility] Comment on above: Order Comment: - Performed By: #### L 500.2500 ####[facility] [address] [place], [address] Potassium [Moles/Vol] 3.0 mmol/L Low 3.5-5.1 [facility] Comment on above: Order Comment: 514- Result Comment: Slig ht Hemolysis, Result may be falsely increased. Performed By: #### L 500.2500 ####[facility] [address] [place], [address] Sodium [Moles/Vol] 137 mmol/L Normal 136-145 [facility] Comment on above: Order Comment: 514-1 Performed By: #### L 500.2500 ####[facility] [address] [place], [address] Urea nitrogen [Mass/Vol] 16 mg/dL Normal 7-18 [facility] Comment on above: Order Comment: 514-1 Performed By: #### L 500.2500 ####[facility] [address] [place], [place], [phone] Vancomycin, Trough Levelon 0 - VANCO, TROUGH 16.8 ug/mL High 5.0-15.0 [facility] Comment on above: Order Comment: 514- 0800 Result Comment: VANC OMYCIN STANDARED DRUG THERAPY TROUGH LEVEL: 5.0 - 15.0 mg/LVANCOMYCIN HIGH INTENSITY THERAPY TROUGH LEVEL: 15.0 - 20.0 mg/LHigh Intensity therapy recommended for serious lifethreatening infections include:- Sbxvbmexco-Eosnzpytpuhd-Kuegbkgxu (Ventilator/Healtcare Associated)-SepsisPLEASE CONTACT PHARMACY SERVICES (#0490) FOR INTERPRETATIONOF RESULTS. Performed By: #### L 501.8820 ####[facility] [address], [address] CBC W/Diff, Automatedon 12-08 Absolute Lymph 2.08 X10 3/uL Normal 0.83-4.51 [facility] Comment on above: Order Comment: 514- Performed By: #### L 501.8820, L100.0100, L500.4050, L501.6710 ####[facility] [address] [place], [address] Absolute Neut 6.8 X10 3/uL Normal 2.0-7.7 [facility] Comment on above: Order Comment: 514- Performed By: #### L 501.8820, L100.0100, L500.4050, L501.6710 ####[facility] [address] [place], [address] Basophils/100 WBC (Bld) 0.5 % Normal 0-1 [facility] Comment on above: Order Comment: 514-1 Performed By: #### L 501.8820, L100.0100, L500.4050, L501.6710 ####[facility] [address] [place], [address] Eosinophils/100 WBC (Bld) 1.1 % Normal 0-5 [facility] Comment on above: Order Comment: 514-1 Performed By: #### L 501.8820, L100.0100, L500.4050, L501.6710 ####[facility] [address] [place], [address] Erythrocyte distribution width (RBC) [Ratio] 16.9 % High 11.6-14.6 [facility] Comment on above: Order Comment: 514-1 Performed By: #### L 501.8820, L100.0100, L500.4050, L501.6710 ####[facility] [address] [place], [address] Hematocrit (Bld) [Volume fraction] 33.0 % Low 37-47 [facility] Comment on above: Order Comment: 514-1 Performed By: #### L 501.8820, L100.0100, L500.4050, L501.6710 ####[facility] [address] [place], [address] Hemoglobin (Bld) [Mass/Vol] 9.9 g/dL Low 12.0-15.0 [facility] Comment on above: Order Comment: 514-1 Performed By: #### L 501.8820, L100.0100, L500.4050, L501.6710 ####[facility] [address] [place], [address] IG% 0.600 Normal 0.0-0.9 [facility] Comment on above: Order Comment: 514-1 Result Comment: IG% - Immature Granulocytes (promyelocytes, myelocytes andmetamyelocytes) > 1% indicates that a LEFT SHIFT is Present. Performed By: #### L 501.8820, L100.0100, L500.4050, L501.6710 ####[facility] [address] [place], [address] Lymphocytes/100 WBC (Bld) 21.5 % Normal 19-41 [facility] Comment on above: Order Comment: 514-1 Performed By: #### L 501.8820, L100.0100, L500.4050, L501.6710 ####[facility] [address] [place], [address] MCH (RBC) [Entitic mass] 25.3 pg Low 27.0-32.0 [facility] Comment on above: Order Comment: 514-1 Performed By: #### L 501.8820, L100.0100, L500.4050, L501.6710 ####[facility] [address] [place], [address] MCHC (RBC) [Mass/Vol] 30.0 g/dL Low 32-36 [facility] Comment on above: Order Comment: 514-1 Performed By: #### L 501.8820, L100.0100, L500.4050, L501.6710 ####[facility] [address] [place], [address] MCV (RBC) [Entitic vol] 84.4 fL Normal 81-99 [facility] Comment on above: Order Comment: 514-1 Performed By: #### L 501.8820, L100.0100, L500.4050, L501.6710 ####[facility] [address] [place], [address] Monocytes/100 WBC (Bld) 6.1 % Normal 0-10 [facility] Comment on above: Order Comment: 514-1 Performed By: #### L 501.8820, L100.0100, L500.4050, L501.6710 ####[facility] [address] [place], [address] Neutrophils/100 WBC (Bld) 70.2 % High 47-70 [facility] Comment on above: Order Comment: 514-1 Performed By: #### L 501.8820, L100.0100, L500.4050, L501.6710 ####[facility] [address] [place], [address] Nucleated RBC (Bld) [#/Vol] 0 10*3/uL Normal 0-5 [facility] Comment on above: Order Comment: 514-1 Performed By: #### L 501.8820, L100.0100, L500.4050, L501.6710 ####[facility] [address] [place], [address] Platelet mean volume (Bld) [Entitic vol] 9.5 fL Normal 6.2-12.0 [facility] Comment on above: Order Comment: 514-1 Performed By: #### L 501.8820, L100.0100, L500.4050, L501.6710 ####[facility] [address] [place], [address] Platelets (Bld) [#/Vol] 236 10*3/uL Normal 150-450 [facility] Comment on above: Order Comment: 514-1 Performed By: #### L 501.8820, L100.0100, L500.4050, L501.6710 ####[facility] [address] [place], [address] RBC (Bld) [#/Vol] 3.91 10*6/uL Low 4.2-5.4 [facility] Comment on above: Order Comment: 514-1 Performed By: #### L 501.8820, L100.0100, L500.4050, L501.6710 ####[facility] [address] [place], [address] RDW SD 52.0 fl High 35.1-43.9 [facility] Comment on above: Order Comment: 514-1 Performed By: #### L 501.8820, L100.0100, L500.4050, L501.6710 ####[facility] [address] [place], [address] WBC (Bld) [#/Vol] 9.7 10*3/uL Normal 4.4-11.0 [facility] Comment on above: Order Comment: 514-1 Performed By: #### L 501.8820, L100.0100, L500.4050, L501.6710 ####[facility] [address] [place], [address] CRPon 12-18-2023 C-REACTIVE PROT 37.20 mg/L High 0.0-3.0 [facility] Comment on above: Order Comment: 514-1 Result Comment: C-Re active Protein (CRP) provides useful information for thediagnosis, therapy and monitoring of inflammatory processesand associated diseases. For the evaluation of Relative Riskfor Cardiovascular Disease, a High Sensitivity CRP (HSCRP)should be ordered. Performed By: #### L 501.8820, L100.0100, L500.4050, L501.6710 ####[facility] [address] [place], [address] Comprehensive Metabolic Prof ilon 12-18-2023 Albumin [Mass/Vol] 1.5 g/dL Low 3.2-5.0 [facility] Comment on above: Order Comment: 514-1 Performed By: #### L 501.8820, L100.0100, L500.4050, L501.6710 ####[facility] [address] [place], [address] Albumin/Globulin [Mass ratio] 0.4 {ratio} Low 0.9-2.4 [facility] Comment on above: Order Comment: 514-1 Performed By: #### L 501.8820, L100.0100, L500.4050, L501.6710 ####[facility] [address] [place], [address] ALK P 150 U/L High 45-117 [facility] Comment on above: Order Comment: 514-1 Performed By: #### L 501.8820, L100.0100, L500.4050, L501.6710 ####[facility] [address] [place], [address] ALT [Catalytic activity/Vol] 14 U/L Normal 13-56 [facility] Comment on above: Order Comment: 514-1 Performed By: #### L 501.8820, L100.0100, L500.4050, L501.6710 ####[facility] [address] [place], [address] AST [Catalytic activity/Vol] 22 U/L Normal 15-37 [facility] Comment on above: Order Comment: 514-1 Performed By: #### L 501.8820, L100.0100, L500.4050, L501.6710 ####[facility] [address] [place], [address] Bilirubin [Mass/Vol] 0.20 mg/dL Normal 0.20-1.00 [facility] Comment on above: Order Comment: 514-1 Result Comment: For patients on eltrombopag therapy, use of Dimension Bosworth TBIL is not recommended. Performed By: #### L 501.8820, L100.0100, L500.4050, L501.6710 ####[facility] [address] [place], [address] BUN/CRE 25.2 RATIO High 10-20 [facility] Comment on above: Order Comment: 514-1 Performed By: #### L 501.8820, L100.0100, L500.4050, L501.6710 ####[facility] [address] [place], [address] CA,Total 7.6 mg/dL Low 8.5-10.1 [facility] Comment on above: Order Comment: 514-1 Performed By: #### L 501.8820, L100.0100, L500.4050, L501.6710 ####[facility] [address] [place], [address] Chloride [Moles/Vol] 105 mmol/L Normal 98-107 [facility] Comment on above: Order Comment: 514-1 Performed By: #### L 501.8820, L100.0100, L500.4050, L501.6710 ####[facility] [address] [place], [address] CO2 [Moles/Vol] 28.0 mmol/L Normal 21.0-32.0 [facility] Comment on above: Order Comment: 514-1 Performed By: #### L 501.8820, L100.0100, L500.4050, L501.6710 ####[facility] [address] [place], [address] Creatinine [Mass/Vol] 0.56 mg/dL Normal 0.55-1.02 [facility] Comment on above: Order Comment: 514-1 Result Comment: The validity of the calculated GFR GFRAA in patients over70 years has not been determined. Clinical correlation isessential. Performed By: #### L 501.8820, L100.0100, L500.4050, L501.6710 ####[facility] [address] [place], [address] EST GFR - AA 137 mL/min Normal >60 [facility] Comment on above: Order Comment: 514- Result Comment: Afri can Martiniquais GFR Calc Performed By: #### L 501.8820, L100.0100, L500.4050, L501.6710 ####[facility] [address] [place], [address] GAP 5 Normal 5-15 [facility] Comment on above: Order Comment: 514-1 Performed By: #### L 501.8820, L100.0100, L500.4050, L501.6710 ####[facility] [address] [place], [address] GFR/1.73 sq M.predicted among non-blacks MDRD (S/P/Bld) [Vol rate/Area] 113 mL/min/{1.73_m2} Normal >60 [facility] Comment on above: Order Comment: 514- Result Comment: Non- GFR Calc Performed By: #### L 501.8820, L100.0100, L500.4050, L501.6710 ####[facility] [address] [place], [address] Globulin (S) [Mass/Vol] 3.4 g/dL Normal 2.2-4.2 [facility] Comment on above: Order Comment: 514-1 Performed By: #### L 501.8820, L100.0100, L500.4050, L501.6710 ####[facility] [address] [place], [address] Glucose [Mass/Vol] 96 mg/dL Normal 74-106 [facility] Comment on above: Order Comment: 514-1 Performed By: #### L 501.8820, L100.0100, L500.4050, L501.6710 ####[facility] [address] [place], [address] Potassium [Moles/Vol] 2.8 mmol/L Low 3.5-5.1 [facility] Comment on above: Order Comment: 514-1 Performed By: #### L 501.8820, L100.0100, L500.4050, L501.6710 ####[facility] [address] [place], [address] Sodium [Moles/Vol] 138 mmol/L Normal 136-145 [facility] Comment on above: Order Comment: 514-1 Performed By: #### L 501.8820, L100.0100, L500.4050, L501.6710 ####[facility] [address] [place], [address] T PROT 4.9 g/dL Low 6.4-8.2 [facility] Comment on above: Order Comment: 514-1 Performed By: #### L 501.8820, L100.0100, L500.4050, L501.6710 ####[facility] [address] [place], [address] Urea nitrogen [Mass/Vol] 14 mg/dL Normal 7-18 [facility] Comment on above: Order Comment: 514-1 Performed By: #### L 501.8820, L100.0100, L500.4050, L501.6710 ####[facility] [address] [place], [address] Vancomycin, Trough Levelon 0 12-18-2023 VANCO, TROUGH 22.0 ug/mL High 5.0-15.0 [facility] Comment on above: Order Comment: 514-1 6230 Result Comment: VANC OMYCIN STANDARED DRUG THERAPY TROUGH LEVEL: 5.0 - 15.0 mg/LVANCOMYCIN HIGH INTENSITY THERAPY TROUGH LEVEL: 15.0 - 20.0 mg/LHigh Intensity therapy recommended for serious lifethreatening infections include:- Ywohernusw-Uvnydziywamo-Rwctkytmk (Ventilator/Healtcare Associated)-SepsisPLEASE CONTACT PHARMACY SERVICES (#6415) FOR INTERPRETATIONOF RESULTS. Performed By: #### L 501.8820, L100.0100, L500.4050, L501.6710 ####[facility] [address] [place], [address] Emergency Department Summary on 12-17-2023 Emergency Department Summary Normal [facility] Vancomycin, Random Levelon 0 12-12-2023 VANCO, RANDOM 15.9 ug/mL High 0.0-15.0 [facility] Comment on above: Order Comment: 514.1 Result Comment: VANC OMYCIN STANDARD DRUG THERAPY: CRITICAL VALUE IS > 15.0 mg/LVANCOMYCIN HIGH INTENSITY THERAPY: CRITICAL VALUE IS > 20.0 mg/LPLEASE CONTACT PHARMACY SERVICES (#4078) FOR INTERPRETATIONOF RESULTS. THIS RESULT DOES NOT REPRESENT A PEAK OR TROUGHLEVEL FOR THIS DRUG. Performed By: #### L [id number] ####[facility] [address] [place], [address] CBC W/Diff, Automatedon Absolute Lymph 2.12 X10 3/uL Normal 0.83-4.51 [facility] Comment on above: Order Comment: 514.1 Performed By: #### L [id number], L100.0100, L500.4050, [id number], [id number] ####[facility] [address] [place], [address] Absolute Neut 8.2 X10 3/uL High 2.0-7.7 [facility] Comment on above: Order Comment: 514.1 Performed By: #### L [id number], L100.0100, L500.4050, [id number], [id number] ####[facility] [address] [place], [address] Basophils/100 WBC (Bld) 0.4 % Normal 0-1 [facility] Comment on above: Order Comment: 514.1 Performed By: #### L [id number], L100.0100, L500.4050, [id number], [id number] ####[facility] [address] [place], [address] Eosinophils/100 WBC (Bld) 1.5 % Normal 0-5 [facility] Comment on above: Order Comment: 514.1 Performed By: #### L [id number], L100.0100, L500.4050, [id number], [id number] ####[facility] [address] [place], [address] Erythrocyte distribution width (RBC) [Ratio] 17.1 % High 11.6-14.6 [facility] Comment on above: Order Comment: 514.1 Performed By: #### L 501.6710, L100.0100, L500.4050, L501.8820, L501.9520 ####[facility] [address] [place], [address] Hematocrit (Bld) [Volume fraction] 33.2 % Low 37-47 [facility] Comment on above: Order Comment: 514.1 Performed By: #### L 501.6710, L100.0100, L500.4050, L501.8820, L501.9520 ####[facility] [address] [place], [address] Hemoglobin (Bld) [Mass/Vol] 10.0 g/dL Low 12.0-15.0 [facility] Comment on above: Order Comment: 514.1 Performed By: #### L 501.6710, L100.0100, L500.4050, L501.8820, L501.9520 ####[facility] [address] [place], [address] IG% 1.200 High 0.0-0.9 [facility] Comment on above: Order Comment: 514.1 Result Comment: IG% - Immature Granulocytes (promyelocytes, myelocytes andmetamyelocytes) > 1% indicates that a LEFT SHIFT is Present. Performed By: #### L 501.6710, L100.0100, L500.4050, L501.8820, L501.9520 ####[facility] [address] [place], [address] Lymphocytes/100 WBC (Bld) 18.8 % Low 19-41 [facility] Comment on above: Order Comment: 514.1 Performed By: #### L 501.6710, L100.0100, L500.4050, L501.8820, L501.9520 ####[facility] [address] [place], [address] MCH (RBC) [Entitic mass] 25.4 pg Low 27.0-32.0 [facility] Comment on above: Order Comment: 514.1 Performed By: #### L 501.6710, L100.0100, L500.4050, L501.8820, L501.9520 ####[facility] [address] [place], [address] MCHC (RBC) [Mass/Vol] 30.1 g/dL Low 32-36 [facility] Comment on above: Order Comment: 514.1 Performed By: #### L 501.6710, L100.0100, L500.4050, L501.8820, L501.9520 ####[facility] [address] [place], [address] MCV (RBC) [Entitic vol] 84.5 fL Normal 81-99 [facility] Comment on above: Order Comment: 514.1 Performed By: #### L 501.6710, L100.0100, L500.4050, L501.8820, L501.9520 ####[facility] [address] [place], [address] Monocytes/100 WBC (Bld) 5.9 % Normal 0-10 [facility] Comment on above: Order Comment: 514.1 Performed By: #### L 501.6710, L100.0100, L500.4050, L501.8820, L501.9520 ####[facility] [address] [place], [address] Neutrophils/100 WBC (Bld) 72.2 % High 47-70 [facility] Comment on above: Order Comment: 514.1 Performed By: #### L 501.6710, L100.0100, L500.4050, L501.8820, L501.9520 ####[facility] [address] [place], [address] Nucleated RBC (Bld) [#/Vol] 0 10*3/uL Normal 0-5 [facility] Comment on above: Order Comment: 514.1 Performed By: #### L 501.6710, L100.0100, L500.4050, L501.8820, L501.9520 ####[facility] [address] [place], [address] Platelet mean volume (Bld) [Entitic vol] 9.5 fL Normal 6.2-12.0 [facility] Comment on above: Order Comment: 514.1 Performed By: #### L 501.6710, L100.0100, L500.4050, L501.8820, L501.9520 ####[facility] [address] [place], [address] Platelets (Bld) [#/Vol] 254 10*3/uL Normal 150-450 [facility] Comment on above: Order Comment: 514.1 Performed By: #### L 501.6710, L100.0100, L500.4050, L501.8820, L501.9520 ####[facility] [address] [place], [address] RBC (Bld) [#/Vol] 3.93 10*6/uL Low 4.2-5.4 [facility] Comment on above: Order Comment: 514.1 Performed By: #### L 501.6710, L100.0100, L500.4050, L501.8820, L501.9520 ####[facility] [address] [place], [address] RDW SD 53.3 fl High 35.1-43.9 [facility] Comment on above: Order Comment: 514.1 Performed By: #### L 501.6710, L100.0100, L500.4050, L501.8820, L501.9520 ####[facility] [address] [place], [address] WBC (Bld) [#/Vol] 11.3 10*3/uL High 4.4-11.0 [facility] Comment on above: Order Comment: 514.1 Performed By: #### L 501.6710, L100.0100, L500.4050, L501.8820, L501.9520 ####[facility] [address] [place], [address] CRPon 12-11-2023 C-REACTIVE PROT 75.80 mg/L High 0.0-3.0 [facility] Comment on above: Order Comment: 514.1 Result Comment: C-Re active Protein (CRP) provides useful information for thediagnosis, therapy and monitoring of inflammatory processesand associated diseases. For the evaluation of Relative Riskfor Cardiovascular Disease, a High Sensitivity CRP (HSCRP)should be ordered. Performed By: #### L 501.6710, L100.0100, L500.4050, L501.8820, L501.9520 ####[facility] [address] [place], [address] Comprehensive Metabolic Prof ilon 12-11-2023 Albumin [Mass/Vol] 1.7 g/dL Low 3.2-5.0 [facility] Comment on above: Order Comment: 514.1 Performed By: #### L 501.6710, L100.0100, L500.4050, L501.8820, L501.9520 ####[facility] [address] [place], [address] Albumin/Globulin [Mass ratio] 0.4 {ratio} Low 0.9-2.4 [facility] Comment on above: Order Comment: 514.1 Performed By: #### L 501.6710, L100.0100, L500.4050, L501.8820, L501.9520 ####[facility] [address] [place], [address] ALK P 163 U/L High 45-117 [facility] Comment on above: Order Comment: 514.1 Performed By: #### L 501.6710, L100.0100, L500.4050, L501.8820, L501.9520 ####[facility] [address] [place], [address] ALT [Catalytic activity/Vol] 14 U/L Normal 13-56 [facility] Comment on above: Order Comment: 514.1 Performed By: #### L 501.6710, L100.0100, L500.4050, L501.8820, L501.9520 ####[facility] [address] [place], [address] AST [Catalytic activity/Vol] 21 U/L Normal 15-37 [facility] Comment on above: Order Comment: 514.1 Performed By: #### L 501.6710, L100.0100, L500.4050, L501.8820, L501.9520 ####[facility] [address] [place], [address] Bilirubin [Mass/Vol] 0.30 mg/dL Normal 0.20-1.00 [facility] Comment on above: Order Comment: 514.1 Result Comment: For patients on eltrombopag therapy, use of Dimension [place] TBIL is not recommended. Performed By: #### L 501.6710, L100.0100, L500.4050, L501.8820, L501.9520 ####[facility] [address] [place], [address] BUN/CRE 25.6 RATIO High 10-20 [facility] Comment on above: Order Comment: 514.1 Performed By: #### L 501.6710, L100.0100, L500.4050, L501.8820, L501.9520 ####[facility] [address] [place], [address] CA,Total 7.9 mg/dL Low 8.5-10.1 [facility] Comment on above: Order Comment: 514.1 Performed By: #### L 501.6710, L100.0100, L500.4050, L501.8820, L501.9520 ####[facility] [address] [place], [address] Chloride [Moles/Vol] 100 mmol/L Normal 98-107 [facility] Comment on above: Order Comment: 514.1 Performed By: #### L 501.6710, L100.0100, L500.4050, L501.8820, L501.9520 ####[facility] [address] [place], [address] CO2 [Moles/Vol] 28.0 mmol/L Normal 21.0-32.0 [facility] Comment on above: Order Comment: 514.1 Performed By: #### L 501.6710, L100.0100, L500.4050, L501.8820, L501.9520 ####[facility] [address] [place], [address] Creatinine [Mass/Vol] 0.62 mg/dL Normal 0.55-1.02 [facility] Comment on above: Order Comment: 514.1 Result Comment: The validity of the calculated GFR GFRAA in patients over70 years has not been determined. Clinical correlation isessential. Performed By: #### L 501.6710, L100.0100, L500.4050, L501.8820, L501.9520 ####[facility] [address] [place], [address] EST GFR - AA 119 mL/min Normal >60 [facility] Comment on above: Order Comment: 514.1 Result Comment: Afri can Martiniquais GFR Calc Performed By: #### L 501.6710, L100.0100, L500.4050, L501.8820, L501.9520 ####[facility] [address] [place], [address] GAP 6 Normal 5-15 [facility] Comment on above: Order Comment: 514.1 Performed By: #### L 501.6710, L100.0100, L500.4050, L501.8820, L501.9520 ####[facility] [address] [place], [address] GFR/1.73 sq M.predicted among non-blacks MDRD (S/P/Bld) [Vol rate/Area] 99 mL/min/{1.73_m2} Normal >60 [facility] Comment on above: Order Comment: 514.1 Result Comment: Non- GFR Calc Performed By: #### L 501.6710, L100.0100, L500.4050, L501.8820, L501.9520 ####[facility] [address] [place], [address] Globulin (S) [Mass/Vol] 4.0 g/dL Normal 2.2-4.2 [facility] Comment on above: Order Comment: 514.1 Performed By: #### L 501.6710, L100.0100, L500.4050, L501.8820, L501.9520 ####[facility] [address] [place], [address] Glucose [Mass/Vol] 112 mg/dL High 74-106 [facility] Comment on above: Order Comment: 514.1 Result Comment: Fast ing Glucose result from 100 to 125 mg/dLsuggests IMPAIRED HOMEOSTASIS per A.D.A. criteria. Performed By: #### L 501.6710, L100.0100, L500.4050, L501.8820, L501.9520 ####[facility] [address] [place], [address] Potassium [Moles/Vol] 3.6 mmol/L Normal 3.5-5.1 [facility] Comment on above: Order Comment: 514.1 Performed By: #### L 501.6710, L100.0100, L500.4050, L501.8820, L501.9520 ####[facility] [address] [place], [address] Sodium [Moles/Vol] 134 mmol/L Low 136-145 [facility] Comment on above: Order Comment: 514.1 Performed By: #### L 501.6710, L100.0100, L500.4050, L501.8820, L501.9520 ####[facility] [address] [place], [address] T PROT 5.7 g/dL Low 6.4-8.2 [facility] Comment on above: Order Comment: 514.1 Performed By: #### L 501.6710, L100.0100, L500.4050, L501.8820, L501.9520 ####[facility] [address] [place], [address] Urea nitrogen [Mass/Vol] 16 mg/dL Normal 7-18 [facility] Comment on above: Order Comment: 514.1 Performed By: #### L 501.6710, L100.0100, L500.4050, L501.8820, L501.9520 ####[facility] [address] [place], [address] Thyroid Stim Hormone (TSH)on 12-11-2023 TSH 2.240 uIU/mL Normal 0.358-3.740 [facility] Comment on above: Order Comment: 514.1 Performed By: #### L 501.6710, L100.0100, L500.4050, L501.8820, L501.9520 ####[facility] [address] [place], [address] Vancomycin, Trough Levelon 0 12-11-2023 VANCO, TROUGH 20.7 ug/mL High 5.0-15.0 [facility] Comment on above: Order Comment: 514.1 0000 Result Comment: VANC OMYCIN STANDARED DRUG THERAPY TROUGH LEVEL: 5.0 - 15.0 mg/LVANCOMYCIN HIGH INTENSITY THERAPY TROUGH LEVEL: 15.0 - 20.0 mg/LHigh Intensity therapy recommended for serious lifethreatening infections include:- Zqgbkkswjn-Dgivlavgarnp-Prflzgitw (Ventilator/Healtcare Associated)-SepsisPLEASE CONTACT PHARMACY SERVICES (#6232) FOR INTERPRETATIONOF RESULTS. Performed By: #### L 501.6710, L100.0100, L500.4050, L501.8820, L501.9520 ####[facility] [address] [place], [address] CBC W/Diff, Automatedon 082 Absolute Lymph 2.08 X10 3/uL Normal 0.83-4.51 [facility] Comment on above: Order Comment: 514-1 Performed By: #### L 501.6710, L500.4050, L100.0100, L501.8820 ####[facility] [address] [place], [address] Absolute Neut 9.0 X10 3/uL High 2.0-7.7 [facility] Comment on above: Order Comment: 514-1 Performed By: #### L 501.6710, L500.4050, L100.0100, L501.8820 ####[facility] [address] [place], [address] Basophils/100 WBC (Bld) 0.6 % Normal 0-1 [facility] Comment on above: Order Comment: 514-1 Performed By: #### L 501.6710, L500.4050, L100.0100, L501.8820 ####[facility] [address] [place], [address] Eosinophils/100 WBC (Bld) 2.2 % Normal 0-5 [facility] Comment on above: Order Comment: 514-1 Performed By: #### L 501.6710, L500.4050, L100.0100, L501.8820 ####[facility] [address] [place], [address] Erythrocyte distribution width (RBC) [Ratio] 17.2 % High 11.6-14.6 [facility] Comment on above: Order Comment: 514-1 Performed By: #### L 501.6710, L500.4050, L100.0100, L501.8820 ####[facility] [address] [place], [address] Hematocrit (Bld) [Volume fraction] 30.6 % Low 37-47 [facility] Comment on above: Order Comment: 514-1 Performed By: #### L 501.6710, L500.4050, L100.0100, L501.8820 ####[facility] [address] [place], [address] Hemoglobin (Bld) [Mass/Vol] 9.4 g/dL Low 12.0-15.0 [facility] Comment on above: Order Comment: 514-1 Performed By: #### L 501.6710, L500.4050, L100.0100, L501.8820 ####[facility] [address] [place], [address] IG% 0.700 Normal 0.0-0.9 [facility] Comment on above: Order Comment: 514-1 Result Comment: IG% - Immature Granulocytes (promyelocytes, myelocytes andmetamyelocytes) > 1% indicates that a LEFT SHIFT is Present. Performed By: #### L 501.6710, L500.4050, L100.0100, L501.8820 ####[facility] [address] [place], [address] Lymphocytes/100 WBC (Bld) 16.7 % Low 19-41 [facility] Comment on above: Order Comment: 514-1 Performed By: #### L 501.6710, L500.4050, L100.0100, L501.8820 ####[facility] [address] [place], [address] MCH (RBC) [Entitic mass] 26.4 pg Low 27.0-32.0 [facility] Comment on above: Order Comment: 514-1 Performed By: #### L 501.6710, L500.4050, L100.0100, L501.8820 ####[facility] [address] [place], [address] MCHC (RBC) [Mass/Vol] 30.7 g/dL Low 32-36 [facility] Comment on above: Order Comment: 514-1 Performed By: #### L 501.6710, L500.4050, L100.0100, L501.8820 ####[facility] [address] [place], [address] MCV (RBC) [Entitic vol] 86.0 fL Normal 81-99 [facility] Comment on above: Order Comment: 514-1 Performed By: #### L 501.6710, L500.4050, L100.0100, L501.8820 ####[facility] [address] [place], [address] Monocytes/100 WBC (Bld) 7.7 % Normal 0-10 [facility] Comment on above: Order Comment: 514-1 Performed By: #### L 501.6710, L500.4050, L100.0100, L501.8820 ####[facility] [address] [place], [address] Neutrophils/100 WBC (Bld) 72.1 % High 47-70 [facility] Comment on above: Order Comment: 514-1 Performed By: #### L 501.6710, L500.4050, L100.0100, L501.8820 ####[facility] [address] [place], [address] Nucleated RBC (Bld) [#/Vol] 0 10*3/uL Normal 0-5 [facility] Comment on above: Order Comment: 514-1 Performed By: #### L 501.6710, L500.4050, L100.0100, L501.8820 ####[facility] [address] [place], [address] Platelet mean volume (Bld) [Entitic vol] 9.2 fL Normal 6.2-12.0 [facility] Comment on above: Order Comment: 514-1 Performed By: #### L 501.6710, L500.4050, L100.0100, L501.8820 ####[facility] [address] [place], [address] Platelets (Bld) [#/Vol] 319 10*3/uL Normal 150-450 [facility] Comment on above: Order Comment: 514-1 Performed By: #### L 501.6710, L500.4050, L100.0100, L501.8820 ####[facility] [address] [place], [address] RBC (Bld) [#/Vol] 3.56 10*6/uL Low 4.2-5.4 [facility] Comment on above: Order Comment: 514-1 Performed By: #### L 501.6710, L500.4050, L100.0100, L501.8820 ####[facility] [address] [place], [address] RDW SD 55.0 fl High 35.1-43.9 [facility] Comment on above: Order Comment: 514-1 Performed By: #### L 501.6710, L500.4050, L100.0100, L501.8820 ####[facility] [address] [place], [address] WBC (Bld) [#/Vol] 12.5 10*3/uL High 4.4-11.0 [facility] Comment on above: Order Comment: 514-1 Performed By: #### L 501.6710, L500.4050, L100.0100, L501.8820 ####[facility] [address] [place], [address] CRPon 12-03-2023 C-REACTIVE PROT 108.00 mg/L High 0.0-3.0 [facility] Comment on above: Order Comment: 514-1 Result Comment: C-Re active Protein (CRP) provides useful information for thediagnosis, therapy and monitoring of inflammatory processesand associated diseases. For the evaluation of Relative Riskfor Cardiovascular Disease, a High Sensitivity CRP (HSCRP)should be ordered. Performed By: #### L 501.6710, L500.4050, L100.0100, L501.8820 ####[facility] [address] [place], [address] Comprehensive Metabolic Prof ilon 12-03-2023 Albumin [Mass/Vol] 1.8 g/dL Low 3.2-5.0 [facility] Comment on above: Order Comment: 514-1 Performed By: #### L 501.6710, L500.4050, L100.0100, L501.8820 ####[facility] [address] [place], [address] Albumin/Globulin [Mass ratio] 0.4 {ratio} Low 0.9-2.4 [facility] Comment on above: Order Comment: 514-1 Performed By: #### L 501.6710, L500.4050, L100.0100, L501.8820 ####[facility] [address] [place], [address] ALK P 203 U/L High 45-117 [facility] Comment on above: Order Comment: 514-1 Performed By: #### L 501.6710, L500.4050, L100.0100, L501.8820 ####[facility] [address] [place], [address] ALT [Catalytic activity/Vol] 14 U/L Normal 13-56 [facility] Comment on above: Order Comment: 514-1 Performed By: #### L 501.6710, L500.4050, L100.0100, L501.8820 ####[facility] [address] [place], [address] AST [Catalytic activity/Vol] 20 U/L Normal 15-37 [facility] Comment on above: Order Comment: 514-1 Performed By: #### L 501.6710, L500.4050, L100.0100, L501.8820 ####[facility] [address] [place], [address] Bilirubin [Mass/Vol] 0.30 mg/dL Normal 0.20-1.00 [facility] Comment on above: Order Comment: 514-1 Result Comment: For patients on eltrombopag therapy, use of Dimension [place] TBIL is not recommended. Performed By: #### L 501.6710, L500.4050, L100.0100, L501.8820 ####[facility] [address] [place], [address] BUN/CRE 24.4 RATIO High 10-20 [facility] Comment on above: Order Comment: 514-1 Performed By: #### L 501.6710, L500.4050, L100.0100, L501.8820 ####[facility] [address] [place], [address] CA,Total 8.3 mg/dL Low 8.5-10.1 [facility] Comment on above: Order Comment: 514-1 Performed By: #### L 501.6710, L500.4050, L100.0100, L501.8820 ####[facility] [address] [place], [address] Chloride [Moles/Vol] 100 mmol/L Normal 98-107 [facility] Comment on above: Order Comment: 514-1 Performed By: #### L 501.6710, L500.4050, L100.0100, L501.8820 ####[facility] [address] [place], [address] CO2 [Moles/Vol] 26.0 mmol/L Normal 21.0-32.0 [facility] Comment on above: Order Comment: 514-1 Performed By: #### L 501.6710, L500.4050, L100.0100, L501.8820 ####[facility] [address] [place], [address] Creatinine [Mass/Vol] 0.78 mg/dL Normal 0.55-1.02 [facility] Comment on above: Order Comment: 514-1 Result Comment: The validity of the calculated GFR GFRAA in patients over70 years has not been determined. Clinical correlation isessential. Performed By: #### L 501.6710, L500.4050, L100.0100, L501.8820 ####[facility] [address] [place], [address] EST GFR - AA 92 mL/min Normal >60 [facility] Comment on above: Order Comment: 514-1 Result Comment: Afri can Martiniquais GFR Calc Performed By: #### L 501.6710, L500.4050, L100.0100, L501.8820 ####[facility] [address] [place], [address] GAP 10 Normal 5-15 [facility] Comment on above: Order Comment: 514-1 Performed By: #### L 501.6710, L500.4050, L100.0100, L501.8820 ####[facility] [address] [place], [address] GFR/1.73 sq M.predicted among non-blacks MDRD (S/P/Bld) [Vol rate/Area] 76 mL/min/{1.73_m2} Normal >60 [facility] Comment on above: Order Comment: 514-1 Result Comment: Non- GFR Calc Performed By: #### L 501.6710, L500.4050, L100.0100, L501.8820 ####[facility] [address] [place], [address] Globulin (S) [Mass/Vol] 4.0 g/dL Normal 2.2-4.2 [facility] Comment on above: Order Comment: 514-1 Performed By: #### L 501.6710, L500.4050, L100.0100, L501.8820 ####[facility] [address] [place], [address] Glucose [Mass/Vol] 132 mg/dL High 74-106 [facility] Comment on above: Order Comment: 514- Result Comment: Fast ing Glucose result greater than or equal to 126 mg/dLsuggests DIABETES MELLITUS per A.D.A. criteria. Performed By: #### L 501.6710, L500.4050, L100.0100, L501.8820 ####[facility] [address] [place], [address] Potassium [Moles/Vol] 3.3 mmol/L Low 3.5-5.1 [facility] Comment on above: Order Comment: 514-1 Performed By: #### L 501.6710, L500.4050, L100.0100, [id number] ####[facility] [address] [place], [address] Sodium [Moles/Vol] 136 mmol/L Normal 136-145 [facility] Comment on above: Order Comment: 514-1 Performed By: #### L 501.6710, L500.4050, L100.0100, [id number] ####[facility] [address] [place], [address] T PROT 5.8 g/dL Low 6.4-8.2 [facility] Comment on above: Order Comment: 514-1 Performed By: #### L 501.6710, L500.4050, L100.0100, [id number] ####[facility] [address] [place], [address] Urea nitrogen [Mass/Vol] 19 mg/dL High 7-18 [facility] Comment on above: Order Comment: 514-1 Performed By: #### L 501.6710, L500.4050, L100.0100, [id number] ####[facility] [address] [place], [address] Vancomycin, Trough Levelon 0 12-03-2023 VANCO, TROUGH 18.9 ug/mL High 5.0-15.0 [facility] Comment on above: Order Comment: 514-1 6148 Result Comment: VANC OMYCIN STANDARED DRUG THERAPY TROUGH LEVEL: 5.0 - 15.0 mg/LVANCOMYCIN HIGH INTENSITY THERAPY TROUGH LEVEL: 15.0 - 20.0 mg/LHigh Intensity therapy recommended for serious lifethreatening infections include:- Jdwihoflhj-Wdweoqojpyle-Gdncdxjaf (Ventilator/Healtcare Associated)-SepsisPLEASE CONTACT PHARMACY SERVICES (#[id number]) FOR INTERPRETATIONOF RESULTS. Performed By: #### L 501.6710, L500.4050, L100.0100, L501.8820 ####[facility] [address] [place], [address] Vancomycin, Trough Levelon 0 11-30-2023 VANCO, TROUGH 23.4 ug/mL High 5.0-15.0 [facility] Comment on above: Order Comment: 514.1 0000 Result Comment: VANC OMYCIN STANDARED DRUG THERAPY TROUGH LEVEL: 5.0 - 15.0 mg/LVANCOMYCIN HIGH INTENSITY THERAPY TROUGH LEVEL: 15.0 - 20.0 mg/LHigh Intensity therapy recommended for serious lifethreatening infections include:- Dopeqjntpf-Yhvkhodicfhn-Mqlrkhfgg (Ventilator/Healtcare Associated)-SepsisPLEASE CONTACT PHARMACY SERVICES (#0867) FOR INTERPRETATIONOF RESULTS. Performed By: #### L 501.8820 ####[facility] [address] [place], [address] Folates, (Folic Acid)on 11-08 FOLATES 16.60 ng/mL Normal 3.1-55.4 [facility] Comment on above: Order Comment: 514-1 N Result Comment: Slig ht Hemolysis, Result may be falsely increased. Performed By: #### L 506.1000, L506.0250, L503.0105 ####[facility] [address] [place], [address] Vitamin B12on 11-28-2023 Cobalamin (Vitamin B12) [Mass/Vol] 576 pg/mL Normal 211-911 [facility] Comment on above: Order Comment: 514-1 Performed By: #### L 506.1000, L506.0250, L503.0105 ####[facility] [address] [place], [address] Vitamin D,25 Hydroxyon 11-27 Vitamin D 25-OH 51.4 ng/mL Normal [facility] Comment on above: Order Comment: 514-1 Result Comment: Ele min D 25(OH) Status Range Deficiency <20 ng/mL (50nmol/L) Insufficiency 20 - 30 ng/mL (50 - 75 nmol/L) Sufficiency 30 - 100 ng/mL (75 - 250 nmol/L) Toxicity >100 ng/mL (>250 nmol/L) Performed By: #### L 506.1000, L506.0250, L503.0105 ####[facility] [address] [place], [address] Vancomycin, Random Levelon 0 11-27-2023 VANCO, RANDOM 15.9 ug/mL High 0.0-15.0 [facility] Comment on above: Order Comment: 514.1 Result Comment: VANC OMYCIN STANDARD DRUG THERAPY: CRITICAL VALUE IS > 15.0 mg/LVANCOMYCIN HIGH INTENSITY THERAPY: CRITICAL VALUE IS > 20.0 mg/LPLEASE CONTACT PHARMACY SERVICES (#6402) FOR INTERPRETATIONOF RESULTS. THIS RESULT DOES NOT REPRESENT A PEAK OR TROUGHLEVEL FOR THIS DRUG. Performed By: #### L 501.8850 ####[facility] [address] [place], [address] Basic Metabolic Profile (BMP )on 11-26-2023 BUN/CRE 19.4 RATIO Normal 10-20 [facility] Comment on above: Order Comment: 514.1 Performed By: #### L 501.6710, L500.2500, L501.8820, L100.0100 ####[facility] [address] [place], [address] CA,Total 8.2 mg/dL Low 8.5-10.1 [facility] Comment on above: Order Comment: 514.1 Performed By: #### L 501.6710, L500.2500, L501.8820, L100.0100 ####[facility] [address] [place], [address] Chloride [Moles/Vol] 106 mmol/L Normal 98-107 [facility] Comment on above: Order Comment: 514.1 Performed By: #### L 501.6710, L500.2500, L501.8820, L100.0100 ####[facility] [address] [place], [address] CO2 [Moles/Vol] 27.0 mmol/L Normal 21.0-32.0 [facility] Comment on above: Order Comment: 514.1 Performed By: #### L 501.6710, L500.2500, L501.8820, L100.0100 ####[facility] [address] [place], [address] Creatinine [Mass/Vol] 0.62 mg/dL Normal 0.55-1.02 [facility] Comment on above: Order Comment: 514.1 Result Comment: The validity of the calculated GFR GFRAA in patients over70 years has not been determined. Clinical correlation isessential. Performed By: #### L 501.6710, L500.2500, L501.8820, L100.0100 ####[facility] [address] [place], [address] EST GFR - AA 121 mL/min Normal >60 [facility] Comment on above: Order Comment: 514.1 Result Comment: Afri can Martiniquais GFR Calc Performed By: #### L 501.6710, L500.2500, L501.8820, L100.0100 ####[facility] [address] [place], [address] GAP 5 Normal 5-15 [facility] Comment on above: Order Comment: 514.1 Performed By: #### L 501.6710, L500.2500, L501.8820, L100.0100 ####[facility] [address] [place], [address] GFR/1.73 sq M.predicted among non-blacks MDRD (S/P/Bld) [Vol rate/Area] 100 mL/min/{1.73_m2} Normal >60 [facility] Comment on above: Order Comment: 514.1 Result Comment: Non- GFR Calc Performed By: #### L 501.6710, L500.2500, L501.8820, L100.0100 ####[facility] [address] [place], [address] Glucose [Mass/Vol] 102 mg/dL Normal 74-106 [facility] Comment on above: Order Comment: 514.1 Result Comment: Fast ing Glucose result from 100 to 125 mg/dLsuggests IMPAIRED HOMEOSTASIS per A.D.A. criteria. Performed By: #### L 501.6710, L500.2500, L501.8820, L100.0100 ####[facility] [address] [place], [address] Potassium [Moles/Vol] 3.3 mmol/L Low 3.5-5.1 [facility] Comment on above: Order Comment: 514.1 Performed By: #### L 501.6710, L500.2500, L501.8820, L100.0100 ####[facility] [address] [place], [address] Sodium [Moles/Vol] 138 mmol/L Normal 136-145 [facility] Comment on above: Order Comment: 514.1 Performed By: #### L 501.6710, L500.2500, L501.8820, L100.0100 ####[facility] [address] [place], [address] Urea nitrogen [Mass/Vol] 12 mg/dL Normal 7-18 [facility] Comment on above: Order Comment: 514.1 Performed By: #### L 501.6710, L500.2500, L501.8820, L100.0100 ####[facility] [address] [place], [address] CBC W/Diff, Automatedon 11-07 Absolute Lymph 2.11 X10 3/uL Normal 0.83-4.51 [facility] Comment on above: Order Comment: 514.1 Performed By: #### L 501.6710, L500.2500, L501.8820, L100.0100 ####[facility] [address] [place], [address] Absolute Neut 3.8 X10 3/uL Normal 2.0-7.7 [facility] Comment on above: Order Comment: 514.1 Performed By: #### L 501.6710, L500.2500, L501.8820, L100.0100 ####[facility] [address] [place], [address] Basophils/100 WBC (Bld) 0.6 % Normal 0-1 [facility] Comment on above: Order Comment: 514.1 Performed By: #### L 501.6710, L500.2500, L501.8820, L100.0100 ####[facility] [address] [place], [address] Eosinophils/100 WBC (Bld) 3.6 % Normal 0-5 [facility] Comment on above: Order Comment: 514.1 Performed By: #### L 501.6710, L500.2500, L501.8820, L100.0100 ####[facility] [address] [place], [address] Erythrocyte distribution width (RBC) [Ratio] 17.3 % High 11.6-14.6 [facility] Comment on above: Order Comment: 514.1 Performed By: #### L 501.6710, L500.2500, L501.8820, L100.0100 ####[facility] [address] [place], [address] Hematocrit (Bld) [Volume fraction] 30.2 % Low 37-47 [facility] Comment on above: Order Comment: 514.1 Performed By: #### L 501.6710, L500.2500, L501.8820, L100.0100 ####[facility] [address] [place], [address] Hemoglobin (Bld) [Mass/Vol] 9.1 g/dL Low 12.0-15.0 [facility] Comment on above: Order Comment: 514.1 Performed By: #### L 501.6710, L500.2500, L501.8820, L100.0100 ####[facility] [address] [place], [address] IG% 0.400 Normal 0.0-0.9 [facility] Comment on above: Order Comment: 514.1 Result Comment: IG% - Immature Granulocytes (promyelocytes, myelocytes andmetamyelocytes) > 1% indicates that a LEFT SHIFT is Present. Performed By: #### L 501.6710, L500.2500, L501.8820, L100.0100 ####[facility] [address] [place], [address] Lymphocytes/100 WBC (Bld) 31.5 % Normal 19-41 [facility] Comment on above: Order Comment: 514.1 Performed By: #### L 501.6710, L500.2500, L501.8820, L100.0100 ####[facility] [address] [place], [address] MCH (RBC) [Entitic mass] 26.4 pg Low 27.0-32.0 [facility] Comment on above: Order Comment: 514.1 Performed By: #### L 501.6710, L500.2500, L501.8820, L100.0100 ####[facility] [address] [place], [address] MCHC (RBC) [Mass/Vol] 30.1 g/dL Low 32-36 [facility] Comment on above: Order Comment: 514.1 Performed By: #### L 501.6710, L500.2500, L501.8820, L100.0100 ####[facility] [address] [place], [address] MCV (RBC) [Entitic vol] 87.5 fL Normal 81-99 [facility] Comment on above: Order Comment: 514.1 Performed By: #### L 501.6710, L500.2500, L501.8820, L100.0100 ####[facility] [address] [place], [address] Monocytes/100 WBC (Bld) 7.5 % Normal 0-10 [facility] Comment on above: Order Comment: 514.1 Performed By: #### L 501.6710, L500.2500, L501.8820, L100.0100 ####[facility] [address] [place], [address] Neutrophils/100 WBC (Bld) 56.4 % Normal 47-70 [facility] Comment on above: Order Comment: 514.1 Performed By: #### L 501.6710, L500.2500, L501.8820, L100.0100 ####[facility] [address] [place], [address] Nucleated RBC (Bld) [#/Vol] 0 10*3/uL Normal 0-5 [facility] Comment on above: Order Comment: 514.1 Performed By: #### L 501.6710, L500.2500, L501.8820, L100.0100 ####[facility] [address] [place], [address] Platelet mean volume (Bld) [Entitic vol] 8.5 fL Normal 6.2-12.0 [facility] Comment on above: Order Comment: 514.1 Performed By: #### L 501.6710, L500.2500, L501.8820, L100.0100 ####[facility] [address] [place], [address] Platelets (Bld) [#/Vol] 240 10*3/uL Normal 150-450 [facility] Comment on above: Order Comment: 514.1 Performed By: #### L 501.6710, L500.2500, L501.8820, L100.0100 ####[facility] [address] [place], [address] RBC (Bld) [#/Vol] 3.45 10*6/uL Low 4.2-5.4 [facility] Comment on above: Order Comment: 514.1 Performed By: #### L 501.6710, L500.2500, L501.8820, L100.0100 ####[facility] [address] [place], [address] RDW SD 56.0 fl High 35.1-43.9 [facility] Comment on above: Order Comment: 514.1 Performed By: #### L 501.6710, L500.2500, L501.8820, L100.0100 ####[facility] [address] [place], [address] WBC (Bld) [#/Vol] 6.7 10*3/uL Normal 4.4-11.0 [facility] Comment on above: Order Comment: 514.1 Performed By: #### L 501.6710, L500.2500, L501.8820, L100.0100 ####[facility] [address] [place], [address] CRPon 11-26-2023 C-REACTIVE PROT 62.00 mg/L High 0.0-3.0 [facility] Comment on above: Order Comment: 514.1 Result Comment: C-Re active Protein (CRP) provides useful information for thediagnosis, therapy and monitoring of inflammatory processesand associated diseases. For the evaluation of Relative Riskfor Cardiovascular Disease, a High Sensitivity CRP (HSCRP)should be ordered. Performed By: #### L 501.6710, L500.2500, L501.8820, L100.0100 ####[facility] [address] [place], [address] Vancomycin, Trough Levelon 0 8-19-2024 VANCO, TROUGH 27.3 ug/mL High 5.0-15.0 [facility] Comment on above: Order Comment: 514.1 0000 Result Comment: VANC OMYCIN STANDARED DRUG THERAPY TROUGH LEVEL: 5.0 - 15.0 mg/LVANCOMYCIN HIGH INTENSITY THERAPY TROUGH LEVEL: 15.0 - 20.0 mg/LHigh Intensity therapy recommended for serious lifethreatening infections include:- Tvxbljrigb-Uhjsiwhvtfvz-Dbefskbpg (Ventilator/Healtcare Associated)-SepsisPLEASE CONTACT PHARMACY SERVICES (#0368) FOR INTERPRETATIONOF RESULTS. Performed By: #### L 501.6710, L500.2500, L501.8820, L100.0100 ####[facility] [address] [place], [address] Basic Metabolic Profile (BMP )on 11-21-2023 BUN/CRE 21.1 RATIO High 10-20 [facility] Comment on above: Order Comment: 514-1 Performed By: #### L 100.0100, L500.2500 ####[facility] [address] [place], [address] CA,Total 8.6 mg/dL Normal 8.5-10.1 [facility] Comment on above: Order Comment: 514-1 Performed By: #### L 100.0100, L500.2500 ####[facility] [address] [place], [address] Chloride [Moles/Vol] 101 mmol/L Normal 98-107 [facility] Comment on above: Order Comment: 514-1 Performed By: #### L 100.0100, L500.2500 ####[facility] [address] [place], [address] CO2 [Moles/Vol] 29.0 mmol/L Normal 21.0-32.0 [facility] Comment on above: Order Comment: 514-1 Performed By: #### L 100.0100, L500.2500 ####[facility] [address] [place], [address] Creatinine [Mass/Vol] 0.62 mg/dL Normal 0.55-1.02 [facility] Comment on above: Order Comment: 514- Result Comment: The validity of the calculated GFR GFRAA in patients over70 years has not been determined. Clinical correlation isessential. Performed By: #### L 100.0100, L500.2500 ####[facility] [address] [place], [address] EST GFR - AA 122 mL/min Normal >60 [facility] Comment on above: Order Comment: - Result Comment: Afri can Martiniquais GFR Calc Performed By: #### L 100.0100, L500.2500 ####[facility] [address] [place], [address] GAP 6 Normal 5-15 [facility] Comment on above: Order Comment: - Performed By: #### L 100.0100, L500.2500 ####[facility] [address] [place], [address] GFR/1.73 sq M.predicted among non-blacks MDRD (S/P/Bld) [Vol rate/Area] 100 mL/min/{1.73_m2} Normal >60 [facility] Comment on above: Order Comment: Result Comment: Non- GFR Calc Performed By: #### L 100.0100, L500.2500 ####[facility] [address] [place], [address] Glucose [Mass/Vol] 134 mg/dL High 74-106 [facility] Comment on above: Order Comment: 514- Result Comment: Fast ing Glucose result greater than or equal to 126 mg/dLsuggests DIABETES MELLITUS per A.D.A. criteria. Performed By: #### L 100.0100, L500.2500 ####[facility] [address] [place], [address] Potassium [Moles/Vol] 3.4 mmol/L Low 3.5-5.1 [facility] Comment on above: Order Comment: 514-1 Performed By: #### L 100.0100, L500.2500 ####[facility] [address] [place], [address] Sodium [Moles/Vol] 136 mmol/L Normal 136-145 [facility] Comment on above: Order Comment: 514-1 Performed By: #### L 100.0100, L500.2500 ####[facility] [address] [place], [address] Urea nitrogen [Mass/Vol] 13 mg/dL Normal 7-18 [facility] Comment on above: Order Comment: 514-1 Performed By: #### L 100.0100, L500.2500 ####[facility] [address] [place], [address] CBC W/Diff, Automatedon 08-04 12-2023 Absolute Lymph 1.69 X10 3/uL Normal 0.83-4.51 [facility] Comment on above: Order Comment: 514-1 Performed By: #### L 100.0100, L500.2500 ####[facility] [address] [place], [address] Absolute Neut 5.1 X10 3/uL Normal 2.0-7.7 [facility] Comment on above: Order Comment: 514-1 Performed By: #### L 100.0100, L500.2500 ####[facility] [address] [place], [address] Basophils/100 WBC (Bld) 0.5 % Normal 0-1 [facility] Comment on above: Order Comment: 514-1 Performed By: #### L 100.0100, L500.2500 ####[facility] [address] [place], [address] Eosinophils/100 WBC (Bld) 2.9 % Normal 0-5 [facility] Comment on above: Order Comment: 514-1 Performed By: #### L 100.0100, L500.2500 ####[facility] [address] [place], [address] Erythrocyte distribution width (RBC) [Ratio] 17.3 % High 11.6-14.6 [facility] Comment on above: Order Comment: 514-1 Performed By: #### L 100.0100, L500.2500 ####[facility] [address] [place], [address] Hematocrit (Bld) [Volume fraction] 27.1 % Low 37-47 [facility] Comment on above: Order Comment: 514-1 Performed By: #### L 100.0100, L500.2500 ####[facility] [address] [place], [address] Hemoglobin (Bld) [Mass/Vol] 8.4 g/dL Low 12.0-15.0 [facility] Comment on above: Order Comment: 514-1 Performed By: #### L 100.0100, L500.2500 ####[facility] [address] [place], [address] IG% 0.500 Normal 0.0-0.9 [facility] Comment on above: Order Comment: 514-1 Result Comment: IG% - Immature Granulocytes (promyelocytes, myelocytes andmetamyelocytes) > 1% indicates that a LEFT SHIFT is Present. Performed By: #### L 100.0100, L500.2500 ####[facility] [address] [place], [address] Lymphocytes/100 WBC (Bld) 21.5 % Normal 19-41 [facility] Comment on above: Order Comment: 514-1 Performed By: #### L 100.0100, L500.2500 ####[facility] [address] [place], [address] MCH (RBC) [Entitic mass] 27.0 pg Normal 27.0-32.0 [facility] Comment on above: Order Comment: 514-1 Performed By: #### L 100.0100, L500.2500 ####[facility] [address] [place], [address] MCHC (RBC) [Mass/Vol] 31.0 g/dL Low 32-36 [facility] Comment on above: Order Comment: 514-1 Performed By: #### L 100.0100, L500.2500 ####[facility] [address] [place], [address] MCV (RBC) [Entitic vol] 87.1 fL Normal 81-99 [facility] Comment on above: Order Comment: 514-1 Performed By: #### L 100.0100, L500.2500 ####[facility] [address] [place], [address] Monocytes/100 WBC (Bld) 9.3 % Normal 0-10 [facility] Comment on above: Order Comment: 514-1 Performed By: #### L 100.0100, L500.2500 ####[facility] [address] [place], [address] Neutrophils/100 WBC (Bld) 65.3 % Normal 47-70 [facility] Comment on above: Order Comment: 514-1 Performed By: #### L 100.0100, L500.2500 ####[facility] [address] [place], [address] Nucleated RBC (Bld) [#/Vol] 0 10*3/uL Normal 0-5 [facility] Comment on above: Order Comment: 514-1 Performed By: #### L 100.0100, L500.2500 ####[facility] [address] [place], [address] Platelet mean volume (Bld) [Entitic vol] 9.3 fL Normal 6.2-12.0 [facility] Comment on above: Order Comment: 514-1 Performed By: #### L 100.0100, L500.2500 ####[facility] [address] [place], [address] Platelets (Bld) [#/Vol] 195 10*3/uL Normal 150-450 [facility] Comment on above: Order Comment: 514-1 Performed By: #### L 100.0100, L500.2500 ####[facility] [address] [place], [address] RBC (Bld) [#/Vol] 3.11 10*6/uL Low 4.2-5.4 [facility] Comment on above: Order Comment: 514-1 Performed By: #### L 100.0100, L500.2500 ####[facility] [address] [place], [address] RDW SD 54.7 fl High 35.1-43.9 [facility] Comment on above: Order Comment: 514-1 Performed By: #### L 100.0100, L500.2500 ####[facility] [address] [place], [address] WBC (Bld) [#/Vol] 7.9 10*3/uL Normal 4.4-11.0 [facility] Comment on above: Order Comment: 514-1 Performed By: #### L 100.0100, L500.2500 ####[facility] [address] [place], [address] CBC panel Auto (Bld)on 11-19 Erythrocyte distribution width (RBC) [Ratio] 17.2 % High 11.5 - 14.5 % [facility] Hematocrit (Bld) [Volume fraction] 26.5 % Low 36.0 - 46.0 % [facility] Hemoglobin (Bld) [Mass/Vol] 8.3 g/dL Low 12.0 - 16.0 g/dL [facility] Interpretation and review of laboratory results Abnormal [facility] MCH (RBC) [Entitic mass] 27.3 pg 26.0 - 34.0 pg [facility] MCHC (RBC) [Mass/Vol] 31.3 g/dL Low 32.0 - 36.0 g/dL [facility] MCV (RBC) [Entitic vol] 87 fL 80 - 100 fL [facility] Nucleated RBC/100 WBC (Bld) [Ratio] 0.0 % [facility] Platelets (Bld) [#/Vol] 180 10*3/uL [facility] RBC (Bld) [#/Vol] 3.04 10*6/uL Low [facility] WBC (Bld) [#/Vol] 7.5 10*3/uL [facility] Erythrocyte distribution width (RBC) [Ratio] 17.2 % High 11.5-14.5 [facility] Comment on above: Performed By: #### 1 9123-9 #### OMERO KNIGHT ([id number]) [facility] ([facility]) [address] [place] [address] Hematocrit (Bld) [Volume fraction] 26.5 % Low 36.0-46.0 [facility] Comment on above: Performed By: #### 1 9123-9 #### OMERO KNIGHT (55703) [facility] ([facility]) [address] [place] [address] Hemoglobin (Bld) [Mass/Vol] 8.3 g/dL Low 12.0-16.0 [facility] Comment on above: Performed By: #### 1 9123-9 #### OMERO KNIGHT (50388) [facility] ([facility]) [address] [place] [address] MCH (RBC) [Entitic mass] 27.3 pg Normal 26.0-34.0 [facility] Comment on above: Performed By: #### 1 9123-9 #### OMERO KNIGHT (22532) [facility] ([facility]) [address] [place] [address] MCHC (RBC) [Mass/Vol] 31.3 g/dL Low 32.0-36.0 [facility] Comment on above: Performed By: #### 1 9123-9 #### OMERO KNIGHT (26258) [facility] ([facility]) [address] [place] [address] MCV (RBC) [Entitic vol] 87 fL Normal 80-100 [facility] Comment on above: Performed By: #### 1 9123-9 #### OMERO KNIGHT (36435) [facility] ([facility]) [address] [place] [address] Nucleated RBC/100 WBC (Bld) [Ratio] 0.0 /100 WBCs Normal 0.0-0.0 [facility] Comment on above: Performed By: #### 1 9123-9 #### OMERO KNIGHT (15562) [facility] ([facility]) [address] [place] [address] Platelets (Bld) [#/Vol] 180 x10*3/uL Normal 150-450 [facility] Comment on above: Performed By: #### 1 9123-9 #### OMERO KNIGHT ([id number]) [facility] ([facility]) [address] [place] [address] RBC (Bld) [#/Vol] 3.04 x10*6/uL Low 4.00-5.20 [facility] Comment on above: Performed By: #### 1 9123-9 #### OMERO KNIGHT ([id number]) [facility] ([facility]) [address] [place] [address] [id number] WBC (Bld) [#/Vol] 7.5 x10*3/uL Normal 4.4-11.3 [facility] Comment on above: Performed By: #### 1 9123-9 #### OMERO KNIGHT ([id number]) [facility] ([facility]) [address] [place] [address] [id number] Glucose Test strip manual (B ld) [Mass/Vol]on 11-20-2023 Glucose [Mass/Vol] 118 mg/dL High 74 - 99 mg/dL [facility] Interpretation and review of laboratory results Abnormal [facility] Glucose [Mass/Vol] 118 mg/dL High 74-99 [facility] Comment on above: Performed By: #### 1 9123-9 #### OMERO KNIGHT ([id number]) [facility] ([facility]) [address] [place] [address] Glucose [Mass/Vol] 135 mg/dL High 74 - 99 mg/dL [facility] Interpretation and review of laboratory results Abnormal [facility] Glucose [Mass/Vol] 135 mg/dL High 74-99 [facility] Comment on above: Performed By: #### 1 9123-9 #### OMERO KNIGHT ([id number]) [facility] ([facility]) [address] [place] [address] Magnesiumon 11-20-2023 Magnesium [Mass/Vol] 1.52 mg/dL Low 1.60 - 2.40 mg/dL [facility] Magnesium [Mass/Vol] 1.52 mg/dL Low 1.60-2.40 [facility] Comment on above: Performed By: #### 1 9123-9 #### OMERO KNIGHT ([id number]) [facility] ([facility]) [address] [place], [place] [id number] No Panel Informationon 11-19 Interpretation and review of laboratory results Abnormal [facility] Renal function 2000 panelon 11-20-2023 Albumin BCP dye [Mass/Vol] 2.5 g/dL Low 3.4 - 5.0 g/dL [facility] Anion gap [Moles/Vol] 13 mmol/L 10 - 2 0 mmol/L [facility] Calcium [Mass/Vol] 8.1 mg/dL Low 8.6 - 10. 6 mg/dL [facility] Chloride [Moles/Vol] 99 mmol/L 98 - 10 7 mmol/L [facility] CO2 [Moles/Vol] 29 mmol/L 21 - 32 mmol/L [facility] Creatinine [Mass/Vol] 0.60 mg/dL 0.50 - 1.05 mg/dL [facility] eGFR - PINF [facility] Glucose [Mass/Vol] 122 mg/dL High 74 - 99 mg/dL [facility] Phosphate [Mass/Vol] 2.9 mg/dL 2.5 - 4 .9 mg/dL [facility] Potassium [Moles/Vol] 3.7 mmol/L 3.5 - 5.3 mmol/L [facility] Sodium [Moles/Vol] 137 mmol/L 136 - 145 mmol/L [facility] Urea nitrogen [Mass/Vol] 12 mg/dL 6 - 23 mg/dL [facility] Albumin BCP dye [Mass/Vol] 2.5 g/dL Low 3.4-5.0 [facility] Comment on above: Performed By: #### 1 9123-9 #### OMERO KNIGHT ([id number]) [facility] ([facility]) [address] [place] [address] 26098 Anion gap [Moles/Vol] 13 mmol/L Normal 10-20 [facility] Comment on above: Performed By: #### 1 9123-9 #### OMREO KNIGHT ([id number]) [facility] ([facility]) [address] [place] [address] 93243 Calcium [Mass/Vol] 8.1 mg/dL Low 8.6-10.6 [facility] Comment on above: Performed By: #### 1 9123-9 #### OMERO KNIGHT ([id number]) [facility] ([facility]) [address] [place] [address] 52629 Chloride [Moles/Vol] 99 mmol/L Normal 98-107 [facility] Comment on above: Performed By: #### 1 9123-9 #### OMERO KNIGHT ([id number]) [facility] ([facility]) [address] [place] [address] 81155 CO2 [Moles/Vol] 29 mmol/L Normal 21-32 [facility] Comment on above: Performed By: #### 1 9123-9 #### OMERO KNIGHT ([id number]) [facility] ([facility]) [address] [place] [address] 49060 Creatinine [Mass/Vol] 0.60 mg/dL Normal 0.50-1.05 [facility] Comment on above: Performed By: #### 1 9123-9 #### OMERO KNIGHT ([id number]) [facility] ([facility]) [address] [place] [address] 25106 GFR/1.73 sq M.predicted MDRD (S/P/Bld) [Vol rate/Area] mL/min/{1.73_m2} Normal >60 [facility] Comment on above: Result Comment: Calc ulations of estimated GFR are performed using the 2020 CKD-EPI Study Refit equation without the race variable for the IDMS-Traceable creatinine methods. https://jasn.asnjournals.org/content/early//ASN.89277 23755 Performed By: #### 1 9123-9 #### OMERO KNIGHT ([id number]) [facility] ([facility]) [address] [place] [address] 89027 Glucose [Mass/Vol] 122 mg/dL High 74-99 [facility] Comment on above: Performed By: #### 1 9123-9 #### OMERO KNIGHT ([id number]) [facility] ([facility]) [address] [place] [address] 38014 Phosphate [Mass/Vol] 2.9 mg/dL Normal 2.5-4.9 [facility] Comment on above: Result Comment: The performance characteristics of phosphorus testing in heparinized plasma have been validated by the individual laboratory site where testing is performed. Testing on heparinized plasma is not approved by the FDA; however, such approval is not necessary. Performed By: #### 1 9123-9 #### OMERO KNIGHT ([id number]) [facility] ([facility]) [address] [place] [address] 38142 Potassium [Moles/Vol] 3.7 mmol/L Normal 3.5-5.3 [facility] Comment on above: Performed By: #### 1 9123-9 #### OMERO KNIGHT ([id number]) [facility] ([facility]) [address] [place] [address] Sodium [Moles/Vol] 137 mmol/L Normal 136-145 [facility] Comment on above: Performed By: #### 1 9123-9 #### OMERO KNIGHT ([id number]) [facility] ([facility]) [address] [place] [address] Urea nitrogen [Mass/Vol] 12 mg/dL Normal 6-23 [facility] Comment on above: Performed By: #### 1 9123-9 #### OMERO KNIGHT ([id number]) [facility] ([facility]) [address] [place] [address] 99048 Vancomycinon 11-20-2023 Vancomycin [Mass/Vol] 15.0 ug/mL 5.0 - 20.0 ug/mL [facility] Vancomycin [Mass/Vol] 15.0 ug/mL Normal 5.0-20.0 [facility] Comment on above: Order Comment: Vanco mycin levels can be monitored according to area under the curve (AUC) or concentration (ug/mL). The preferred monitoring strategy is determined by the patient's renal function and indication for therapy.For AUC monitoring, a random vancomycin level should be interpreted in the context of AUC rather than the concentration at a single point in time.For concentration monitoring, a trough concentration drawn immediately prior to the next dose is preferred.Therapeutic ranges using concentration-guided results:Peak (all ages): 30.0-40.0 ug/mLTrough (all ages): 10.0-20.0 ug/mL Performed By: #### 1 9123-9 #### OMERO KNIGHT ([id number]) [facility] ([facility]) [address] [place] [address] 91569 Vancomycin [Mass/Vol]on 11-07 Interpretation and review of laboratory results Normal [facility] 25-hydroxyvitamin D3 [Mass/V ol]on 11-19-2023 [facility] CBC W Auto Differential pane l (Bld)on 11-19-2023 Basophils (Bld) [#/Vol] 0.03 10*3/uL [facility] Basophils/100 WBC (Bld) 0.4 % 0.0 - 2.0 % [facility] Eosinophils (Bld) [#/Vol] 0.20 10*3/uL [facility] Eosinophils/100 WBC (Bld) 2.5 % 0.0 - 6.0 % [facility] Erythrocyte distribution width (RBC) [Ratio] 17.1 % High 11.5 - 14.5 % [facility] Hematocrit (Bld) [Volume fraction] 27.2 % Low 36.0 - 46.0 % [facility] Hemoglobin (Bld) [Mass/Vol] 8.5 g/dL Low 12.0 - 16.0 g/dL [facility] Immature granulocytes (Bld) [#/Vol] 0.04 10*3/uL [facility] Immature granulocytes/100 WBC (Bld) 0.5 % 0.0 - 0.9 % [facility] Interpretation and review of laboratory results Abnormal [facility] Lymphocytes (Bld) [#/Vol] 2.39 10*3/uL [facility] Lymphocytes/100 WBC (Bld) 29.8 % 13.0 - 44.0 % [facility] MCH (RBC) [Entitic mass] 27.4 pg 26.0 - 34.0 pg [facility] MCHC (RBC) [Mass/Vol] 31.3 g/dL Low 32.0 - 36.0 g/dL [facility] MCV (RBC) [Entitic vol] 88 fL 80 - 100 fL [facility] Monocytes (Bld) [#/Vol] 0.64 10*3/uL [facility] Monocytes/100 WBC (Bld) 8.0 % 2.0 - 10.0 % [facility] Neutrophils (Bld) [#/Vol] 4.73 10*3/uL [facility] Neutrophils/100 WBC (Bld) 58.8 % 40.0 - 80.0 % [facility] Nucleated RBC/100 WBC (Bld) [Ratio] 0.0 % [facility] Platelets (Bld) [#/Vol] 178 10*3/uL [facility] RBC (Bld) [#/Vol] 3.10 10*6/uL [facility] WBC (Bld) [#/Vol] 8.0 10*3/uL [facility] Basophils (Bld) [#/Vol] 0.03 x10*3/uL Normal 0.00-0.10 [facility] Comment on above: Performed By: #### 1 9123-9 #### OMERO KNIGHT ([id number]) [facility] ([facility]) [address] [place] [address] 45130 Basophils/100 WBC (Bld) 0.4 % Normal 0.0-2.0 [facility] Comment on above: Performed By: #### 1 9123-9 #### OMERO KNIGHT ([id number]) [facility] ([facility]) [address] [place] [address] 17545 Eosinophils (Bld) [#/Vol] 0.20 x10*3/uL Normal 0.00-0.40 [facility] Comment on above: Performed By: #### 1 9123-9 #### OMERO KNIGHT ([id number]) [facility] ([facility]) [address] [place] [address] 10169 Eosinophils/100 WBC (Bld) 2.5 % Normal 0.0-6.0 [facility] Comment on above: Performed By: #### 1 9123-9 #### OMERO KNIGHT ([id number]) [facility] ([facility]) [address] [place] [address] 28995 Erythrocyte distribution width (RBC) [Ratio] 17.1 % High 11.5-14.5 [facility] Comment on above: Performed By: #### 1 9123-9 #### OMERO KNIGHT ([id number]) [facility] ([facility]) [address] [place] [address] 25685 Hematocrit (Bld) [Volume fraction] 27.2 % Low 36.0-46.0 [facility] Comment on above: Performed By: #### 1 9123-9 #### OMERO KNIGHT ([id number]) [facility] ([facility]) [address] [place] [address] 09201 Hemoglobin (Bld) [Mass/Vol] 8.5 g/dL Low 12.0-16.0 [facility] Comment on above: Performed By: #### 1 9123-9 #### OMERO KNIGHT ([id number]) [facility] ([facility]) [address] [place] [address] 68345 Immature granulocytes (Bld) [#/Vol] 0.04 x10*3/uL Normal 0.00-0.50 [facility] Comment on above: Performed By: #### 1 9123-9 #### OMERO KNIGHT ([id number]) [facility] ([facility]) [address] [place] [address] 88397 Immature granulocytes/100 WBC (Bld) 0.5 % Normal 0.0-0.9 [facility] Comment on above: Result Comment: Martina ture Granulocyte Count (IG) includes promyelocytes, myelocytes and metamyelocytes but does not include bands. Percent differential counts (%) should be interpreted in the context of the absolute cell counts (cells/UL). Performed By: #### 1 9123-9 #### OMERO KNIGHT ([id number]) [facility] ([facility]) [address] [place] [address] 81178 Lymphocytes (Bld) [#/Vol] 2.39 x10*3/uL Normal 0.80-3.00 [facility] Comment on above: Performed By: #### 1 9123-9 #### OMERO KNIGHT ([id number]) [facility] ([facility]) [address] [place] [address] 54833 Lymphocytes/100 WBC (Bld) 29.8 % Normal 13.0-44.0 [facility] Comment on above: Performed By: #### 1 9123-9 #### OMERO KNIGHT ([id number]) [facility] ([facility]) [address] [place] [address] 24089 MCH (RBC) [Entitic mass] 27.4 pg Normal 26.0-34.0 [facility] Comment on above: Performed By: #### 1 9123-9 #### OMERO KNIGHT ([id number]) [facility] ([facility]) [address] [place] [address] 07457 MCHC (RBC) [Mass/Vol] 31.3 g/dL Low 32.0-36.0 [facility] Comment on above: Performed By: #### 1 9123-9 #### OMERO KNIGHT ([id number]) [facility] ([facility]) [address] [place] [address] 43705 MCV (RBC) [Entitic vol] 88 fL Normal 80-100 [facility] Comment on above: Performed By: #### 1 9123-9 #### OMERO KNIGHT ([id number]) [facility] ([facility]) [address] [place] [address] 95569 Monocytes (Bld) [#/Vol] 0.64 x10*3/uL Normal 0.05-0.80 [facility] Comment on above: Performed By: #### 1 9123-9 #### OMERO KNIGHT ([id number]) [facility] ([facility]) [address] [place] [address] 14860 Monocytes/100 WBC (Bld) 8.0 % Normal 2.0-10.0 [facility] Comment on above: Performed By: #### 1 9123-9 #### OMERO KNIGHT ([id number]) [facility] ([facility]) [address] [place] [address] 04083 Neutrophils (Bld) [#/Vol] 4.73 x10*3/uL Normal 1.60-5.50 [facility] Comment on above: Result Comment: Perc ent differential counts (%) should be interpreted in the context of the absolute cell counts (cells/uL). Performed By: #### 1 9123-9 #### OMERO KNIGHT ([id number]) [facility] ([facility]) [address] [place] [address] 75379 Neutrophils/100 WBC (Bld) 58.8 % Normal 40.0-80.0 [facility] Comment on above: Performed By: #### 1 9123-9 #### OMERO KNIGHT ([id number]) [facility] ([facility]) [address] [place] [address] 22532 Nucleated RBC/100 WBC (Bld) [Ratio] 0.0 /100 WBCs Normal 0.0-0.0 [facility] Comment on above: Performed By: #### 1 9123-9 #### OMERO KNIGHT ([id number]) [facility] ([facility]) [address] [place] [address] 41226 Platelets (Bld) [#/Vol] 178 x10*3/uL Normal 150-450 [facility] Comment on above: Performed By: #### 1 9123-9 #### OMERO KNIGHT ([id number]) [facility] ([facility]) [address] [place] [address] 66193 RBC (Bld) [#/Vol] 3.10 x10*6/uL Low 4.00-5.20 [facility] Comment on above: Performed By: #### 1 9123-9 #### OMERO KNIGHT ([id number]) [facility] ([facility]) [address] [place] [address] 09992 WBC (Bld) [#/Vol] 8.0 x10*3/uL Normal 4.4-11.3 [facility] Comment on above: Performed By: #### 1 9123-9 #### OMERO KNIGHT ([id number]) [facility] ([facility]) [address] [place] [address] 33170 Calcidiolon 11-19-2023 25-hydroxyvitamin D3 [Mass/Vol] 51 ng/mL Normal 30-100 [facility] Comment on above: Order Comment: Defic iency: < 20 ng/mlInsufficiency: 20-29 ng/mlSufficiency: 30-100 ng/mlThis assay accurately quantifies the sum of Vitamin D3, 25-Hydroxy and Vitamin D2,25-Hydroxy. Performed By: #### 1 9123-9 #### OMERO KNIGHT ([id number]) [facility] ([facility]) [address] [place] [address] 85384 Cobalaminson 11-19-2023 Cobalamin (Vitamin B12) [Mass/Vol] 374 pg/mL Normal 211-911 [facility] Comment on above: Performed By: #### 1 9123-9 #### OMERO KNIGHT ([id number]) [facility] ([facility]) [address] [place] [address] 05241 Glucose Test strip manual (B ld) [Mass/Vol]on 11-19-2023 Glucose [Mass/Vol] 170 mg/dL High 74 - 99 mg/dL [facility] Interpretation and review of laboratory results Abnormal [facility] Glucose [Mass/Vol] 170 mg/dL High 74-99 [facility] Comment on above: Performed By: #### 1 9123-9 #### OMERO KNIGHT ([id number]) [facility] ([facility]) [address] [place] [address] 38083 Glucose [Mass/Vol] 189 mg/dL High 74 - 99 mg/dL [facility] Interpretation and review of laboratory results Abnormal [facility] Glucose [Mass/Vol] 189 mg/dL High 74-99 [facility] Comment on above: Performed By: #### 1 9123-9 #### OMERO KNIGHT ([id number]) [facility] ([facility]) [address] [place] [address] 72044 Glucose [Mass/Vol] 157 mg/dL High 74 - 99 mg/dL [facility] Interpretation and review of laboratory results Abnormal [facility] Glucose [Mass/Vol] 157 mg/dL High 74-99 [facility] Comment on above: Performed By: #### 1 9123-9 #### OMERO KNIGHT ([id number]) [facility] ([facility]) [address] [place] [address] 98499 Glucose [Mass/Vol] 124 mg/dL High 74 - 99 mg/dL [facility] Interpretation and review of laboratory results Abnormal [facility] Glucose [Mass/Vol] 124 mg/dL High 74-99 [facility] Comment on above: Performed By: #### 1 9123-9 #### OMERO KNIGHT ([id number]) [facility] ([facility]) [address] [place] [address] [place] [address] Magnesiumon 11-19-2023 Magnesium [Mass/Vol] 1.46 mg/dL Low 1.60 - 2.40 mg/dL [facility] Magnesium [Mass/Vol] 1.46 mg/dL Low 1.60-2.40 [facility] Comment on above: Performed By: #### 1 9123-9 #### JAMIL EUGENE ([id number]) [facility] ([facility]) [facility] [place] [address] No Panel Informationon 11-18 Interpretation and review of laboratory results Normal [facility] Interpretation and review of laboratory results Abnormal [facility] Renal function 2000 panelon 11-19-2023 Albumin BCP dye [Mass/Vol] 2.4 g/dL Low 3.4 - 5.0 g/dL [facility] Anion gap [Moles/Vol] 11 mmol/L 10 - 2 0 mmol/L [facility] Calcium [Mass/Vol] 8.0 mg/dL Low 8.6 - 10. 6 mg/dL [facility] Chloride [Moles/Vol] 100 mmol/L 98 - 10 7 mmol/L [facility] CO2 [Moles/Vol] 31 mmol/L 21 - 32 mmol/L [facility] Creatinine [Mass/Vol] 0.61 mg/dL 0.50 - 1.05 mg/dL [facility] eGFR - PINF [facility] Glucose [Mass/Vol] 122 mg/dL High 74 - 99 mg/dL [facility] Phosphate [Mass/Vol] 2.8 mg/dL 2.5 - 4 .9 mg/dL [facility] Potassium [Moles/Vol] 3.8 mmol/L 3.5 - 5.3 mmol/L [facility] Sodium [Moles/Vol] 138 mmol/L 136 - 145 mmol/L [facility] Urea nitrogen [Mass/Vol] 14 mg/dL 6 - 23 mg/dL [facility] Albumin BCP dye [Mass/Vol] 2.4 g/dL Low 3.4-5.0 [facility] Comment on above: Performed By: #### 1 9123-9 #### OMERO KNIGHT ([id number]) [facility] ([facility]) [facility] [place] [address] Anion gap [Moles/Vol] 11 mmol/L Normal 10-20 [facility] Comment on above: Performed By: #### 1 9123-9 #### OMERO KNIGHT ([id number]) [facility] ([facility]) [address] [place] [address] 95718 Calcium [Mass/Vol] 8.0 mg/dL Low 8.6-10.6 [facility] Comment on above: Performed By: #### 1 9123-9 #### OMERO KNIGHT ([id number]) [facility] ([facility]) [address] [place] [address] 97765 Chloride [Moles/Vol] 100 mmol/L Normal 98-107 [facility] Comment on above: Performed By: #### 1 9123-9 #### OMERO KNIGHT ([id number]) [facility] ([facility]) [address] [place] [address] 82873 CO2 [Moles/Vol] 31 mmol/L Normal 21-32 [facility] Comment on above: Performed By: #### 1 9123-9 #### OMERO KNIGHT ([id number]) [facility] ([facility]) [address] [place] [address] 90842 Creatinine [Mass/Vol] 0.61 mg/dL Normal 0.50-1.05 [facility] Comment on above: Performed By: #### 1 9123-9 #### OMERO KNIGHT ([id number]) [facility] ([facility]) [address] [place] [address] 23276 GFR/1.73 sq M.predicted MDRD (S/P/Bld) [Vol rate/Area] mL/min/{1.73_m2} Normal >60 [facility] Comment on above: Result Comment: Calc ulations of estimated GFR are performed using the 2020 CKD-EPI Study Refit equation without the race variable for the IDMS-Traceable creatinine methods. https://jasn.asnjournals.org/content/early/ASN.67605 38112 Performed By: #### 1 9123-9 #### OMERO KNIGHT ([id number]) [facility] ([facility]) [address] [place] [address] 77350 Glucose [Mass/Vol] 122 mg/dL High 74-99 [facility] Comment on above: Performed By: #### 1 9123-9 #### OMERO KNIGHT ([id number]) [facility] ([facility]) [address] [place] [address] 55570 Phosphate [Mass/Vol] 2.8 mg/dL Normal 2.5-4.9 [facility] Comment on above: Result Comment: The performance characteristics of phosphorus testing in heparinized plasma have been validated by the individual laboratory site where testing is performed. Testing on heparinized plasma is not approved by the FDA; however, such approval is not necessary. Performed By: #### 1 9123-9 #### OMERO KNIGHT ([id number]) [facility] ([facility]) [address] [place] [address] 34857 Potassium [Moles/Vol] 3.8 mmol/L Normal 3.5-5.3 [facility] Comment on above: Performed By: #### 1 9123-9 #### OMERO KNIGHT ([id number]) [facility] ([facility]) [address] [place] [address] 35271 Sodium [Moles/Vol] 138 mmol/L Normal 136-145 [facility] Comment on above: Performed By: #### 1 9123-9 #### OMERO KNIGHT ([id number]) [facility] ([facility]) [address] [place] [address] 47914 Urea nitrogen [Mass/Vol] 14 mg/dL Normal 6-23 [facility] Comment on above: Performed By: #### 1 9123-9 #### OMERO KNIGHT ([id number]) [facility] ([facility]) [address] [place] [address] 97282 TSH WITH REFLEX TO FREE T4 I F ABNORMALon 11-19-2023 TSH Qn 0.45 m[IU]/L Normal 0.44-3.98 [facility] Comment on above: Order Comment: TSH t esting is performed using different testing methodology at [facility] than at other [facility]. Direct result comparisons should only be made within the same method. Performed By: #### 1 9123-9 #### OMERO KNIGHT ([id number]) [facility] ([facility]) [address] [place] [address] TSH with reflex to Free T4 i f abnormalon 11-19-2023 Interpretation and review of laboratory results Normal [facility] TSH Qn 0.45 m[IU]/L [facility] Vancomycinon 11-19-2023 Vancomycin [Mass/Vol] 16.0 ug/mL 5.0 - 20.0 ug/mL [facility] Vancomycin [Mass/Vol] 16.0 ug/mL Normal 5.0-20.0 [facility] Comment on above: Order Comment: Vanco mycin levels can be monitored according to area under the curve (AUC) or concentration (ug/mL). The preferred monitoring strategy is determined by the patient's renal function and indication for therapy.For AUC monitoring, a random vancomycin level should be interpreted in the context of AUC rather than the concentration at a single point in time.For concentration monitoring, a trough concentration drawn immediately prior to the next dose is preferred.Therapeutic ranges using concentration-guided results:Peak (all ages): 30.0-40.0 ug/mLTrough (all ages): 10.0-20.0 ug/mL Performed By: #### 1 9123-9 #### OMERO KNIGHT ([id number]) [facility] ([facility]) [facility] [place] [id number] Vancomycin [Mass/Vol]on 11-07 Interpretation and review of laboratory results Normal [facility] Vitamin B12on 11-19-2023 Cobalamin (Vitamin B12) [Mass/Vol] 374 pg/mL 211 - 911 pg/mL [facility] Vitamin D 25-Hydroxy,Total ( for eval of Vitamin D levels)on 11-19-2023 25-hydroxyvitamin D3 [Mass/Vol] 51 ng/mL 30 - 100 ng/mL [facility] CBC W Auto Differential pane l (Bld)on 11-18-2023 Basophils (Bld) [#/Vol] 0.03 10*3/uL [facility] Basophils/100 WBC (Bld) 0.3 % 0.0 - 2.0 % [facility] Eosinophils (Bld) [#/Vol] 0.22 10*3/uL [facility] Eosinophils/100 WBC (Bld) 2.5 % 0.0 - 6.0 % [facility] Erythrocyte distribution width (RBC) [Ratio] 16.5 % High 11.5 - 14.5 % [facility] Hematocrit (Bld) [Volume fraction] 28.0 % Low 36.0 - 46.0 % [facility] Hemoglobin (Bld) [Mass/Vol] 8.7 g/dL Low 12.0 - 16.0 g/dL [facility] Immature granulocytes (Bld) [#/Vol] 0.04 10*3/uL [facility] Immature granulocytes/100 WBC (Bld) 0.5 % 0.0 - 0.9 % [facility] Interpretation and review of laboratory results Abnormal [facility] Lymphocytes (Bld) [#/Vol] 3.01 10*3/uL High [facility] Lymphocytes/100 WBC (Bld) 34.3 % 13.0 - 44.0 % [facility] MCH (RBC) [Entitic mass] 26.9 pg 26.0 - 34.0 pg [facility] MCHC (RBC) [Mass/Vol] 31.1 g/dL Low 32.0 - 36.0 g/dL [facility] MCV (RBC) [Entitic vol] 87 fL 80 - 100 fL [facility] Monocytes (Bld) [#/Vol] 0.77 10*3/uL [facility] Monocytes/100 WBC (Bld) 8.8 % 2.0 - 10.0 % [facility] Neutrophils (Bld) [#/Vol] 4.70 10*3/uL [facility] Neutrophils/100 WBC (Bld) 53.6 % 40.0 - 80.0 % [facility] Nucleated RBC/100 WBC (Bld) [Ratio] 0.0 % [facility] Platelets (Bld) [#/Vol] 186 10*3/uL [facility] RBC (Bld) [#/Vol] 3.23 10*6/uL Low [facility] WBC (Bld) [#/Vol] 8.8 10*3/uL [facility] Basophils (Bld) [#/Vol] 0.03 x10*3/uL Normal 0.00-0.10 [facility] Comment on above: Performed By: #### 5 0190-8 #### OMERO KNIGHT ([id number]) [facility] ([facility]) [address] [place] [address] 24765 Basophils/100 WBC (Bld) 0.3 % Normal 0.0-2.0 [facility] Comment on above: Performed By: #### 5 0190-8 #### OMERO KNIGHT ([id number]) [facility] ([facility]) [address] [place] [address] 94711 Eosinophils (Bld) [#/Vol] 0.22 x10*3/uL Normal 0.00-0.40 [facility] Comment on above: Performed By: #### 5 0190-8 #### OMERO KNIGHT ([id number]) [facility] ([facility]) [address] [place] [address] 41020 Eosinophils/100 WBC (Bld) 2.5 % Normal 0.0-6.0 [facility] Comment on above: Performed By: #### 5 0190-8 #### OMERO KNIGHT ([id number]) [facility] ([facility]) [address] [place] [address] 75794 Erythrocyte distribution width (RBC) [Ratio] 16.5 % High 11.5-14.5 [facility] Comment on above: Performed By: #### 5 0190-8 #### OMERO KNIGHT ([id number]) [facility] ([facility]) [address] [place] [address] 66325 Hematocrit (Bld) [Volume fraction] 28.0 % Low 36.0-46.0 [facility] Comment on above: Performed By: #### 5 0190-8 #### OMERO KNIGHT ([id number]) [facility] ([facility]) [address] [place] [address] 75934 Hemoglobin (Bld) [Mass/Vol] 8.7 g/dL Low 12.0-16.0 [facility] Comment on above: Performed By: #### 5 0190-8 #### OMERO KNIGHT ([id number]) [facility] ([facility]) [address] [place] [address] 34432 Immature granulocytes (Bld) [#/Vol] 0.04 x10*3/uL Normal 0.00-0.50 [facility] Comment on above: Performed By: #### 5 0190-8 #### OMERO KNIGHT ([id number]) [facility] ([facility]) [address] [place] [address] 04324 Immature granulocytes/100 WBC (Bld) 0.5 % Normal 0.0-0.9 [facility] Comment on above: Result Comment: Martina ture Granulocyte Count (IG) includes promyelocytes, myelocytes and metamyelocytes but does not include bands. Percent differential counts (%) should be interpreted in the context of the absolute cell counts (cells/UL). Performed By: #### 5 0190-8 #### OMERO KNIGHT ([id number]) [facility] ([facility]) [address] [place] [address] 91962 Lymphocytes (Bld) [#/Vol] 3.01 x10*3/uL High 0.80-3.00 [facility] Comment on above: Performed By: #### 5 0190-8 #### OMERO KNIGHT ([id number]) [facility] ([facility]) [address] [place] [address] 38404 Lymphocytes/100 WBC (Bld) 34.3 % Normal 13.0-44.0 [facility] Comment on above: Performed By: #### 5 0190-8 #### OMERO KNIGHT ([id number]) [facility] ([facility]) [address] [place] [address] 43088 MCH (RBC) [Entitic mass] 26.9 pg Normal 26.0-34.0 [facility] Comment on above: Performed By: #### 5 0190-8 #### OMERO KNIGHT ([id number]) [facility] ([facility]) [address] [place] [address] 84286 MCHC (RBC) [Mass/Vol] 31.1 g/dL Low 32.0-36.0 [facility] Comment on above: Performed By: #### 5 0-8 #### OMERO KNIGHT ([id number]) [facility] ([facility]) [address] [place] [address] 20808 MCV (RBC) [Entitic vol] 87 fL Normal 80-100 [facility] Comment on above: Performed By: #### 5 0-8 #### OMERO KNIGHT ([id number]) [facility] ([facility]) [address] [place] [address] 35286 Monocytes (Bld) [#/Vol] 0.77 x10*3/uL Normal 0.05-0.80 [facility] Comment on above: Performed By: #### 5 0-8 #### OMERO KNIGHT ([id number]) [facility] ([facility]) [address] [place] [address] 73182 Monocytes/100 WBC (Bld) 8.8 % Normal 2.0-10.0 [facility] Comment on above: Performed By: #### 5 0190-8 #### OMERO KNIGHT ([id number]) [facility] ([facility]) [address] [place] [address] 42880 Neutrophils (Bld) [#/Vol] 4.70 x10*3/uL Normal 1.60-5.50 [facility] Comment on above: Result Comment: Perc ent differential counts (%) should be interpreted in the context of the absolute cell counts (cells/uL). Performed By: #### 5 0190-8 #### OMERO KNIGHT ([id number]) [facility] ([facility]) [address] [place] [address] 16201 Neutrophils/100 WBC (Bld) 53.6 % Normal 40.0-80.0 [facility] Comment on above: Performed By: #### 5 0190-8 #### OMERO KNIGHT ([id number]) [facility] ([facility]) [address] [place] [address] 65836 Nucleated RBC/100 WBC (Bld) [Ratio] 0.0 /100 WBCs Normal 0.0-0.0 [facility] Comment on above: Performed By: #### 5 0190-8 #### OMERO KNIGHT ([id number]) [facility] ([facility]) [address] [place] [address] 77551 Platelets (Bld) [#/Vol] 186 x10*3/uL Normal 150-450 [facility] Comment on above: Performed By: #### 5 0190-8 #### OMERO KNIGHT ([id number]) [facility] ([facility]) [address] [place] [address] 97477 RBC (Bld) [#/Vol] 3.23 x10*6/uL Low 4.00-5.20 [facility] Comment on above: Performed By: #### 5 0190-8 #### OMERO KNIGHT ([id number]) [facility] ([facility]) [address] [place] [address] 71826 WBC (Bld) [#/Vol] 8.8 x10*3/uL Normal 4.4-11.3 [facility] Comment on above: Performed By: #### 5 0190-8 #### OMERO KNIGHT ([id number]) [facility] ([facility]) [address] [place] [address] 83221 Glucose Test strip manual (B ld) [Mass/Vol]on 11-18-2023 Glucose [Mass/Vol] 156 mg/dL High 74 - 99 mg/dL [facility] Interpretation and review of laboratory results Abnormal [facility] Glucose [Mass/Vol] 156 mg/dL High 74-99 [facility] Comment on above: Performed By: #### 1 9123-9 #### OMERO KNIGHT ([id number]) [facility] ([facility]) [address] [place] [address] 13408 Glucose [Mass/Vol] 180 mg/dL High 74 - 99 mg/dL [facility] Interpretation and review of laboratory results Abnormal [facility] Glucose [Mass/Vol] 180 mg/dL High 74-99 [facility] Comment on above: Performed By: #### 1 9123-9 #### OMERO KNIGHT ([id number]) [facility] ([facility]) [address] [place] [address] 27863 Glucose [Mass/Vol] 173 mg/dL High 74 - 99 mg/dL [facility] Interpretation and review of laboratory results Abnormal [facility] Glucose [Mass/Vol] 173 mg/dL High 74-99 [facility] Comment on above: Performed By: #### 1 9123-9 #### OMERO KNIGHT ([id number]) [facility] ([facility]) [address] [place] [address] 37473 Glucose [Mass/Vol] 130 mg/dL High 74 - 99 mg/dL [facility] Interpretation and review of laboratory results Abnormal [facility] Glucose [Mass/Vol] 130 mg/dL High 74-99 [facility] Comment on above: Performed By: #### 1 9123-9 #### OMERO KNIGHT ([id number]) [facility] ([facility]) [address] [place] [address] 77871 Magnesiumon 11-18-2023 Magnesium [Mass/Vol] 1.52 mg/dL Low 1.60 - 2.40 mg/dL [facility] Magnesium [Mass/Vol] 1.52 mg/dL Low 1.60-2.40 [facility] Comment on above: Performed By: #### 5 0190-8 #### OMERO KNIGHT ([id number]) [facility] ([facility]) [address] [place] [address] 47681 No Panel Informationon 11-17 Interpretation and review of laboratory results Abnormal [facility] Renal function 2000 panelon 11-18-2023 Albumin BCP dye [Mass/Vol] 2.5 g/dL Low 3.4 - 5.0 g/dL [facility] Anion gap [Moles/Vol] 13 mmol/L 10 - 2 0 mmol/L [facility] Calcium [Mass/Vol] 8.0 mg/dL Low 8.6 - 10. 6 mg/dL [facility] Chloride [Moles/Vol] 98 mmol/L 98 - 10 7 mmol/L [facility] CO2 [Moles/Vol] 30 mmol/L 21 - 32 mmol/L [facility] Creatinine [Mass/Vol] 0.66 mg/dL 0.50 - 1.05 mg/dL [facility] eGFR - PINF [facility] Glucose [Mass/Vol] 126 mg/dL High 74 - 99 mg/dL [facility] Phosphate [Mass/Vol] 2.6 mg/dL 2.5 - 4 .9 mg/dL [facility] Potassium [Moles/Vol] 3.9 mmol/L 3.5 - 5.3 mmol/L [facility] Sodium [Moles/Vol] 137 mmol/L 136 - 145 mmol/L [facility] Urea nitrogen [Mass/Vol] 14 mg/dL 6 - 23 mg/dL [facility] Albumin BCP dye [Mass/Vol] 2.5 g/dL Low 3.4-5.0 [facility] Comment on above: Performed By: #### 5 0190-8 #### OMERO KNIGHT ([id number]) [facility] ([facility]) [address] [place] [address] 60844 Anion gap [Moles/Vol] 13 mmol/L Normal 10-20 [facility] Comment on above: Performed By: #### 5 0190-8 #### OMERO KNIGHT ([id number]) [facility] ([facility]) [address] [place] [address] 58758 Calcium [Mass/Vol] 8.0 mg/dL Low 8.6-10.6 [facility] Comment on above: Performed By: #### 5 0190-8 #### OMERO KNIGHT ([id number]) [facility] ([facility]) [address] [place] [address] 20009 Chloride [Moles/Vol] 98 mmol/L Normal 98-107 [facility] Comment on above: Performed By: #### 5 0190-8 #### OMERO KNIGHT ([id number]) [facility] ([facility]) [facility] [place] [address] CO2 [Moles/Vol] 30 mmol/L Normal 21-32 [facility] Comment on above: Performed By: #### 5 0190-8 #### OMERO KNIGHT ([id number]) [facility] ([facility]) [address] [place] [address] 15788 Creatinine [Mass/Vol] 0.66 mg/dL Normal 0.50-1.05 [facility] Comment on above: Performed By: #### 5 0190-8 #### OMERO KNIGHT ([id number]) [facility] ([facility]) [address] [place] [address] 27027 GFR/1.73 sq M.predicted MDRD (S/P/Bld) [Vol rate/Area] mL/min/{1.73_m2} Normal >60 [facility] Comment on above: Result Comment: Calc ulations of estimated GFR are performed using the 2020 CKD-EPI Study Refit equation without the race variable for the IDMS-Traceable creatinine methods. https://jasn.asnjournals.org/content//ASN.24977 17032 Performed By: #### 5 0190-8 #### OMERO KNIGHT ([id number]) [facility] ([facility]) [address] [place] [address] 33297 Glucose [Mass/Vol] 126 mg/dL High 74-99 [facility] Comment on above: Performed By: #### 5 0190-8 #### OMERO KNIGHT ([id number]) [facility] ([facility]) [address] [place] [address] 95118 Phosphate [Mass/Vol] 2.6 mg/dL Normal 2.5-4.9 [facility] Comment on above: Result Comment: The performance characteristics of phosphorus testing in heparinized plasma have been validated by the individual laboratory site where testing is performed. Testing on heparinized plasma is not approved by the FDA; however, such approval is not necessary. Performed By: #### 5 0190-8 #### OMERO KNIGHT ([id number]) [facility] ([facility]) [address] [place] [address] 20116 Potassium [Moles/Vol] 3.9 mmol/L Normal 3.5-5.3 [facility] Comment on above: Performed By: #### 5 0190-8 #### OMERO KNIGHT ([id number]) [facility] ([facility]) [address] [place] [address] 84748 Sodium [Moles/Vol] 137 mmol/L Normal 136-145 [facility] Comment on above: Performed By: #### 5 0190-8 #### OMERO KNIGHT ([id number]) [facility] ([facility]) [address] [place] [address] 26060 Urea nitrogen [Mass/Vol] 14 mg/dL Normal 6-23 [facility] Comment on above: Performed By: #### 5 0190-8 #### OMERO KNIGHT ([id number]) [facility] ([facility]) [address] [place] [address] 04427 CBC W Auto Differential pane l (Bld)on 11-17-2023 Basophils (Bld) [#/Vol] 0.04 10*3/uL [facility] Basophils/100 WBC (Bld) 0.6 % 0.0 - 2.0 % [facility] Eosinophils (Bld) [#/Vol] 0.11 10*3/uL [facility] Eosinophils/100 WBC (Bld) 1.5 % 0.0 - 6.0 % [facility] Erythrocyte distribution width (RBC) [Ratio] 16.7 % High 11.5 - 14.5 % [facility] Hematocrit (Bld) [Volume fraction] 29.3 % Low 36.0 - 46.0 % [facility] Hemoglobin (Bld) [Mass/Vol] 9.1 g/dL Low 12.0 - 16.0 g/dL [facility] Immature granulocytes (Bld) [#/Vol] 0.09 10*3/uL [facility] Immature granulocytes/100 WBC (Bld) 1.2 % High 0.0 - 0.9 % [facility] Interpretation and review of laboratory results Abnormal [facility] Lymphocytes (Bld) [#/Vol] 2.57 10*3/uL [facility] Lymphocytes/100 WBC (Bld) 35.4 % 13.0 - 44.0 % [facility] MCH (RBC) [Entitic mass] 26.5 pg 26.0 - 34.0 pg [facility] MCHC (RBC) [Mass/Vol] 31.1 g/dL Low 32.0 - 36.0 g/dL [facility] MCV (RBC) [Entitic vol] 85 fL 80 - 100 fL [facility] Monocytes (Bld) [#/Vol] 0.81 10*3/uL High [facility] Monocytes/100 WBC (Bld) 11.2 % 2.0 - 10.0 % [facility] Neutrophils (Bld) [#/Vol] 3.64 10*3/uL [facility] Neutrophils/100 WBC (Bld) 50.1 % 40.0 - 80.0 % [facility] Nucleated RBC/100 WBC (Bld) [Ratio] 0.0 % [facility] Platelets (Bld) [#/Vol] 152 10*3/uL [facility] RBC (Bld) [#/Vol] 3.43 10*6/uL [facility] WBC (Bld) [#/Vol] 7.3 10*3/uL [facility] Basophils (Bld) [#/Vol] 0.04 x10*3/uL Normal 0.00-0.10 [facility] Comment on above: Performed By: #### 5 0190-8 #### OMERO KNIGHT ([id number]) [facility] ([facility]) [address] [place] [address] Basophils/100 WBC (Bld) 0.6 % Normal 0.0-2.0 [facility] Comment on above: Performed By: #### 5 0190-8 #### OMERO KNIGHT ([id number]) [facility] ([facility]) [address] [place] [address] 71832 Eosinophils (Bld) [#/Vol] 0.11 x10*3/uL Normal 0.00-0.40 [facility] Comment on above: Performed By: #### 0-8 #### OMERO KNIGHT ([id number]) [facility] ([facility]) [address] [place] [address] 18926 Eosinophils/100 WBC (Bld) 1.5 % Normal 0.0-6.0 [facility] Comment on above: Performed By: #### 189-8 #### OMERO KNIGHT ([id number]) [facility] ([facility]) [address] [place] [address] Erythrocyte distribution width (RBC) [Ratio] 16.7 % High 11.5-14.5 [facility] Comment on above: Performed By: #### 189-8 #### OMERO KNIGHT ([id number]) [facility] ([facility]) [address] [place] [address] Hematocrit (Bld) [Volume fraction] 29.3 % Low 36.0-46.0 [facility] Comment on above: Performed By: #### 5 189-8 #### OMERO KNIGHT ([id number]) [facility] ([facility]) [address] [place] [address] 77587 Hemoglobin (Bld) [Mass/Vol] 9.1 g/dL Low 12.0-16.0 [facility] Comment on above: Performed By: #### 0-8 #### OMERO KNIGHT ([id number]) [facility] ([facility]) [address] [place] [address] 87341 Immature granulocytes (Bld) [#/Vol] 0.09 x10*3/uL Normal 0.00-0.50 [facility] Comment on above: Performed By: #### 0-8 #### OMERO KNIGHT ([id number]) [facility] ([facility]) [address] [place] [address] 00925 Immature granulocytes/100 WBC (Bld) 1.2 % High 0.0-0.9 [facility] Comment on above: Result Comment: Martina ture Granulocyte Count (IG) includes promyelocytes, myelocytes and metamyelocytes but does not include bands. Percent differential counts (%) should be interpreted in the context of the absolute cell counts (cells/UL). Performed By: #### 5 0190-8 #### OMERO KNIGHT ([id number]) [facility] ([facility]) [address] [place] [address] Lymphocytes (Bld) [#/Vol] 2.57 x10*3/uL Normal 0.80-3.00 [facility] Comment on above: Performed By: #### 5 0190-8 #### OMERO KNIGHT ([id number]) [facility] ([facility]) [address] [place] [address] Lymphocytes/100 WBC (Bld) 35.4 % Normal 13.0-44.0 [facility] Comment on above: Performed By: #### 5 0190-8 #### OMERO KNIGHT ([id number]) [facility] ([facility]) [address] [place] [address] MCH (RBC) [Entitic mass] 26.5 pg Normal 26.0-34.0 [facility] Comment on above: Performed By: #### 5 0190-8 #### OMERO KNIGHT ([id number]) [facility] ([facility]) [address] [place] [address] MCHC (RBC) [Mass/Vol] 31.1 g/dL Low 32.0-36.0 [facility] Comment on above: Performed By: #### 5 0190-8 #### OMERO KNIGHT ([id number]) [facility] ([facility]) [address] [place] [address] MCV (RBC) [Entitic vol] 85 fL Normal 80-100 [facility] Comment on above: Performed By: #### 5 0190-8 #### OMERO KNIGHT ([id number]) [facility] ([facility]) [address] [place] [address] 95968 Monocytes (Bld) [#/Vol] 0.81 x10*3/uL High 0.05-0.80 [facility] Comment on above: Performed By: #### 5 0190-8 #### OMERO KNIGHT ([id number]) [facility] ([facility]) [address] [place] [address] 35262 Monocytes/100 WBC (Bld) 11.2 % Normal 2.0-10.0 [facility] Comment on above: Performed By: #### 5 0-8 #### OMERO KNIGHT ([id number]) [facility] ([facility]) [address] [place] [address] 42100 Neutrophils (Bld) [#/Vol] 3.64 x10*3/uL Normal 1.60-5.50 [facility] Comment on above: Result Comment: Perc ent differential counts (%) should be interpreted in the context of the absolute cell counts (cells/uL). Performed By: #### 5 0190-8 #### OMERO KNIGHT ([id number]) [facility] ([facility]) [address] [place] [address] 94702 Neutrophils/100 WBC (Bld) 50.1 % Normal 40.0-80.0 [facility] Comment on above: Performed By: #### 5 0190-8 #### OMERO KNIGHT ([id number]) [facility] ([facility]) [address] [place] [address] 29423 Nucleated RBC/100 WBC (Bld) [Ratio] 0.0 /100 WBCs Normal 0.0-0.0 [facility] Comment on above: Performed By: #### 5 0190-8 #### OMERO KNIGHT ([id number]) [facility] ([facility]) [address] [place] [address] 29492 Platelets (Bld) [#/Vol] 152 x10*3/uL Normal 150-450 [facility] Comment on above: Performed By: #### 5 0190-8 #### OMERO KNIGHT ([id number]) [facility] ([facility]) [address] [place] [address] 00912 RBC (Bld) [#/Vol] 3.43 x10*6/uL Low 4.00-5.20 [facility] Comment on above: Performed By: #### 0-8 #### OMERO KNIGHT ([id number]) [facility] ([facility]) [address] [place] [address] 69782 WBC (Bld) [#/Vol] 7.3 x10*3/uL Normal 4.4-11.3 [facility] Comment on above: Performed By: #### 5 0-8 #### OMERO KNIGHT ([id number]) [facility] ([facility]) [address] [place] [address] 59771 Glucose Test strip manual (B ld) [Mass/Vol]on 11-17-2023 Glucose [Mass/Vol] 169 mg/dL High 74 - 99 mg/dL [facility] Interpretation and review of laboratory results Abnormal [facility] Glucose [Mass/Vol] 169 mg/dL High 74-99 [facility] Comment on above: Performed By: #### 0-8 #### OMERO KNIGHT ([id number]) [facility] ([facility]) [address] [place] [address] 69099 Glucose [Mass/Vol] 134 mg/dL High 74 - 99 mg/dL [facility] Interpretation and review of laboratory results Abnormal [facility] Glucose [Mass/Vol] 134 mg/dL High 74-99 [facility] Comment on above: Performed By: #### 5 0-8 #### OMERO KNIGHT ([id number]) [facility] ([facility]) [address] [place] [address] 38264 Glucose [Mass/Vol] 152 mg/dL High 74 - 99 mg/dL [facility] Interpretation and review of laboratory results Abnormal [facility] Glucose [Mass/Vol] 152 mg/dL High 74-99 [facility] Comment on above: Performed By: #### 5 0-8 #### OMERO KNIGHT ([id number]) [facility] ([facility]) [address] [place] [address] Glucose [Mass/Vol] 157 mg/dL High 74 - 99 mg/dL [facility] Interpretation and review of laboratory results Abnormal [facility] Glucose [Mass/Vol] 157 mg/dL High 74-99 [facility] Comment on above: Performed By: #### 5 0190-8 #### OMERO KNIGHT ([id number]) [facility] ([facility]) [address] [place] [id number] Magnesiumon 11-17-2023 Magnesium [Mass/Vol] 1.47 mg/dL Low 1.60 - 2.40 mg/dL [facility] Magnesium [Mass/Vol] 1.47 mg/dL Low 1.60-2.40 [facility] Comment on above: Performed By: #### 5 0190-8 #### OMERO KNIGHT ([id number]) [facility] ([facility]) [address] [place] [address] No Panel Informationon 11-16 Interpretation and review of laboratory results Abnormal [facility] Renal function 2000 panelon 11-17-2023 Albumin BCP dye [Mass/Vol] 2.4 g/dL Low 3.4 - 5.0 g/dL [facility] Anion gap [Moles/Vol] 11 mmol/L 10 - 2 0 mmol/L [facility] Calcium [Mass/Vol] 7.6 mg/dL Low 8.6 - 10. 6 mg/dL [facility] Chloride [Moles/Vol] 99 mmol/L 98 - 10 7 mmol/L [facility] CO2 [Moles/Vol] 31 mmol/L 21 - 32 mmol/L [facility] Creatinine [Mass/Vol] 0.63 mg/dL 0.50 - 1.05 mg/dL [facility] eGFR - PINF [facility] Glucose [Mass/Vol] 130 mg/dL High 74 - 99 mg/dL [facility] Phosphate [Mass/Vol] 2.9 mg/dL 2.5 - 4 .9 mg/dL [facility] Potassium [Moles/Vol] 4.0 mmol/L 3.5 - 5.3 mmol/L [facility] Sodium [Moles/Vol] 137 mmol/L 136 - 145 mmol/L [facility] Urea nitrogen [Mass/Vol] 14 mg/dL 6 - 23 mg/dL [facility] Albumin BCP dye [Mass/Vol] 2.4 g/dL Low 3.4-5.0 [facility] Comment on above: Performed By: #### 5 0190-8 #### OMERO KNIGHT ([id number]) [facility] ([facility]) [address] [place] [address] 53914 Anion gap [Moles/Vol] 11 mmol/L Normal 10-20 [facility] Comment on above: Performed By: #### 5 0-8 #### OMERO KNIGHT ([id number]) [facility] ([facility]) [address] [place] [address] 49514 Calcium [Mass/Vol] 7.6 mg/dL Low 8.6-10.6 [facility] Comment on above: Performed By: #### 5 0-8 #### OMERO KNIGHT ([id number]) [facility] ([facility]) [address] [place] [address] 12092 Chloride [Moles/Vol] 99 mmol/L Normal 98-107 [facility] Comment on above: Performed By: #### 5 0-8 #### OMERO KNIGHT ([id number]) [facility] ([facility]) [address] [place] [address] 60969 CO2 [Moles/Vol] 31 mmol/L Normal 21-32 [facility] Comment on above: Performed By: #### 5 0-8 #### OMERO KNIGHT ([id number]) [facility] ([facility]) [address] [place] [address] 52168 Creatinine [Mass/Vol] 0.63 mg/dL Normal 0.50-1.05 [facility] Comment on above: Performed By: #### 5 0190-8 #### OMERO KNIGHT ([id number]) [facility] ([facility]) [address] [place] [address] 30441 GFR/1.73 sq M.predicted MDRD (S/P/Bld) [Vol rate/Area] mL/min/{1.73_m2} Normal >60 [facility] Comment on above: Result Comment: Calc ulations of estimated GFR are performed using the 2020 CKD-EPI Study Refit equation without the race variable for the IDMS-Traceable creatinine methods. https://jasn.asnjournals.org/content//ASN.56630 33017 Performed By: #### 5 0190-8 #### OMERO KNIGHT ([id number]) [facility] ([facility]) [address] [place] [address] 60153 Glucose [Mass/Vol] 130 mg/dL High 74-99 [facility] Comment on above: Performed By: #### 5 0190-8 #### OMERO KNIGHT ([id number]) [facility] ([facility]) [address] [place] [address] 53998 Phosphate [Mass/Vol] 2.9 mg/dL Normal 2.5-4.9 [facility] Comment on above: Result Comment: The performance characteristics of phosphorus testing in heparinized plasma have been validated by the individual laboratory site where testing is performed. Testing on heparinized plasma is not approved by the FDA; however, such approval is not necessary. Performed By: #### 5 0190-8 #### OMERO KNIGHT ([id number]) [facility] ([facility]) [address] [place] [address] 08999 Potassium [Moles/Vol] 4.0 mmol/L Normal 3.5-5.3 [facility] Comment on above: Performed By: #### 5 0190-8 #### OMERO KNIGHT ([id number]) [facility] ([facility]) [address] [place] [address] 18918 Sodium [Moles/Vol] 137 mmol/L Normal 136-145 [facility] Comment on above: Performed By: #### 5 0190-8 #### OMERO KNIGHT ([id number]) [facility] ([facility]) [address] [place] [address] Urea nitrogen [Mass/Vol] 14 mg/dL Normal 6-23 [facility] Comment on above: Performed By: #### 5 0190-8 #### JAMIL EUGENE ([id number]) [facility] ([facility]) [address] [place] [address] XR Chest Single viewon 11-16 [facility] MMODAL [facility] MMODAL [facility] Work Phone: [phone] XR Chest Single viewOrdered By: Pastor Barrientos on 11-17-2023 [facility] Work Phone: [phone] Bacteria identified Cx Nom ( Unsp spec)on 11-16-2023 Microscopic observation Gram stain Nom (Unsp spec) No polymorphonuclear leukocytes seen [facility] Work Phone: [phone] Microscopic observation Gram stain Nom (Unsp spec) No organisms seen [facility] Work Phone: [phone] [facility] Work Phone: [phone] Microscopic observation Gram stain Nom (Unsp spec) No polymorphonuclear leukocytes seen [facility] Work Phone: [phone] Microscopic observation Gram stain Nom (Unsp spec) No organisms seen [facility] Work Phone: [phone] [facility] Work Phone: [phone] Bedside PICC Imagingon 11-15 IMAGING CBC panel Auto (Bld)on 11-15 Erythrocyte distribution width (RBC) [Ratio] 16.5 % High 11.5 - 14.5 % [facility] Hematocrit (Bld) [Volume fraction] 29.4 % Low 36.0 - 46.0 % [facility] Hemoglobin (Bld) [Mass/Vol] 9.1 g/dL Low 12.0 - 16.0 g/dL [facility] Interpretation and review of laboratory results Abnormal [facility] MCH (RBC) [Entitic mass] 27.0 pg 26.0 - 34.0 pg [facility] MCHC (RBC) [Mass/Vol] 31.0 g/dL Low 32.0 - 36.0 g/dL [facility] MCV (RBC) [Entitic vol] 87 fL 80 - 100 fL [facility] Nucleated RBC/100 WBC (Bld) [Ratio] 0.0 % [facility] Platelets (Bld) [#/Vol] 192 10*3/uL [facility] RBC (Bld) [#/Vol] 3.37 10*6/uL Low [facility] WBC (Bld) [#/Vol] 9.6 10*3/uL [facility] Erythrocyte distribution width (RBC) [Ratio] 16.5 % High 11.5-14.5 [facility] Comment on above: Performed By: #### 2 276-4 #### OMERO KNIGHT ([id number]) [facility] ([facility]) [address] [place] [address] Hematocrit (Bld) [Volume fraction] 29.4 % Low 36.0-46.0 [facility] Comment on above: Performed By: #### 2 276-4 #### OMERO KNIGHT ([id number]) [facility] ([facility]) [address] [place] [address] 86566 Hemoglobin (Bld) [Mass/Vol] 9.1 g/dL Low 12.0-16.0 [facility] Comment on above: Performed By: #### 2 276-4 #### OMERO KNIGHT ([id number]) [facility] ([facility]) [address] [place] [address] 91596 MCH (RBC) [Entitic mass] 27.0 pg Normal 26.0-34.0 [facility] Comment on above: Performed By: #### 2 276-4 #### OMERO KNIGHT ([id number]) [facility] ([facility]) [address] [place] [address] 94303 MCHC (RBC) [Mass/Vol] 31.0 g/dL Low 32.0-36.0 [facility] Comment on above: Performed By: #### 2 276-4 #### OMERO KNIGHT ([id number]) [facility] ([facility]) [address] [place] [address] 42453 MCV (RBC) [Entitic vol] 87 fL Normal 80-100 [facility] Comment on above: Performed By: #### 2 276-4 #### OMERO KNIGHT ([id number]) [facility] ([facility]) [address] [place] [address] 13973 Nucleated RBC/100 WBC (Bld) [Ratio] 0.0 /100 WBCs Normal 0.0-0.0 [facility] Comment on above: Performed By: #### 2 276-4 #### OMERO KNIGHT ([id number]) [facility] ([facility]) [address] [place] [address] 86838 Platelets (Bld) [#/Vol] 192 x10*3/uL Normal 150-450 [facility] Comment on above: Performed By: #### 2 276-4 #### OMERO KNIGHT ([id number]) [facility] ([facility]) [address] [place] [address] 97231 RBC (Bld) [#/Vol] 3.37 x10*6/uL Low 4.00-5.20 [facility] Comment on above: Performed By: #### 2 276-4 #### OMERO KNIGHT ([id number]) [facility] ([facility]) [address] [place] [address] 50753 WBC (Bld) [#/Vol] 9.6 x10*3/uL Normal 4.4-11.3 [facility] Comment on above: Performed By: #### 2 276-4 #### OMERO KNIGHT ([id number]) [facility] ([facility]) [address] [place] [address] 29041 Glucose Test strip manual (B ld) [Mass/Vol]on 11-16-2023 Glucose [Mass/Vol] 164 mg/dL High 74 - 99 mg/dL [facility] Interpretation and review of laboratory results Abnormal [facility] Glucose [Mass/Vol] 164 mg/dL High 74-99 [facility] Comment on above: Performed By: #### 2 276-4 #### OMERO KNIGHT ([id number]) [facility] ([facility]) [facility] [place] [address] Glucose [Mass/Vol] 168 mg/dL High 74 - 99 mg/dL [facility] Interpretation and review of laboratory results Abnormal [facility] Glucose [Mass/Vol] 168 mg/dL High 74-99 [facility] Comment on above: Performed By: #### 2 276-4 #### OMERO KNIGHT ([id number]) [facility] ([facility]) [address] [place] [address] 73432 Glucose [Mass/Vol] 165 mg/dL High 74 - 99 mg/dL [facility] Interpretation and review of laboratory results Abnormal [facility] Glucose [Mass/Vol] 165 mg/dL High 74-99 [facility] Comment on above: Performed By: #### 2 276-4 #### OMERO KNIGHT ([id number]) [facility] ([facility]) [address] [place] [address] 21000 Glucose [Mass/Vol] 125 mg/dL High 74 - 99 mg/dL [facility] Interpretation and review of laboratory results Abnormal [facility] Glucose [Mass/Vol] 125 mg/dL High 74-99 [facility] Comment on above: Performed By: #### 2 276-4 #### OMERO KNIGHT ([id number]) [facility] ([facility]) [address] [place] [address] 48075 Magnesiumon 11-16-2023 Magnesium [Mass/Vol] 1.76 mg/dL 1.60 - 2.40 mg/dL [facility] Magnesium [Mass/Vol] 1.76 mg/dL Normal 1.60-2.40 [facility] Comment on above: Performed By: #### 2 276-4 #### OMERO KNIGHT ([id number]) [facility] ([facility]) [address] [place] [address] 13735 Magnesium [Mass/Vol]on 11-15 Interpretation and review of laboratory results Normal [facility] No Panel Informationon 11-15 [facility] PICC >5 YR BEDSIDE IMAGINGon 11-16-2023 PICC >5 YR BEDSIDE IMAGING These images are not reportable by radiology and will not be interpreted by Radiologists. Normal [facility] Renal function 2000 panelon 11-16-2023 Albumin BCP dye [Mass/Vol] 2.7 g/dL Low 3.4 - 5.0 g/dL [facility] Anion gap [Moles/Vol] 12 mmol/L 10 - 2 0 mmol/L [facility] Calcium [Mass/Vol] 8.4 mg/dL Low 8.6 - 10. 6 mg/dL [facility] Chloride [Moles/Vol] 97 mmol/L Low 98 - 10 7 mmol/L [facility] CO2 [Moles/Vol] 31 mmol/L 21 - 32 mmol/L [facility] Creatinine [Mass/Vol] 0.77 mg/dL 0.50 - 1.05 mg/dL [facility] GFR/1.73 sq M.predicted among non-blacks MDRD (S/P/Bld) [Vol rate/Area] 81 mL/min/{1.73_m2} - PINF [facility] Glucose [Mass/Vol] 141 mg/dL High 74 - 99 mg/dL [facility] Interpretation and review of laboratory results Abnormal [facility] Phosphate [Mass/Vol] 2.0 mg/dL Low 2.5 - 4 .9 mg/dL [facility] Potassium [Moles/Vol] 3.3 mmol/L Low 3.5 - 5.3 mmol/L [facility] Sodium [Moles/Vol] 137 mmol/L 136 - 145 mmol/L [facility] Urea nitrogen [Mass/Vol] 17 mg/dL 6 - 23 mg/dL [facility] Albumin BCP dye [Mass/Vol] 2.7 g/dL Low 3.4-5.0 [facility] Comment on above: Performed By: #### 2 276-4 #### JAMIL EUGENE ([id number]) [facility] ([facility]) [address] [place] [address] Anion gap [Moles/Vol] 12 mmol/L Normal 10-20 [facility] Comment on above: Performed By: #### 2 276-4 #### OMERO KNIGHT ([id number]) [facility] ([facility]) [address] [place] [address] 81112 Calcium [Mass/Vol] 8.4 mg/dL Low 8.6-10.6 [facility] Comment on above: Performed By: #### 2 276-4 #### OMERO KNIGHT ([id number]) [facility] ([facility]) [address] [place] [address] 89832 Chloride [Moles/Vol] 97 mmol/L Low 98-107 [facility] Comment on above: Performed By: #### 2 276-4 #### OMERO KNIGHT ([id number]) [facility] ([facility]) [address] [place] [address] 43860 CO2 [Moles/Vol] 31 mmol/L Normal 21-32 [facility] Comment on above: Performed By: #### 2 276-4 #### OMERO KNIGHT ([id number]) [facility] ([facility]) [address] [place] [address] 86470 Creatinine [Mass/Vol] 0.77 mg/dL Normal 0.50-1.05 [facility] Comment on above: Performed By: #### 2 276-4 #### OMERO KNIGHT ([id number]) [facility] ([facility]) [address] [place] [address] 51064 Glomerular filtration rate/1.73 sq M.predicted 81 mL/min/1.73m*2 Normal >60 [facility] Comment on above: Result Comment: Calc ulations of estimated GFR are performed using the 2020 CKD-EPI Study Refit equation without the race variable for the IDMS-Traceable creatinine methods. https://jasn.asnjournals.org/content//ASN.94819 37204 Performed By: #### 2 276-4 #### OMERO KNIGHT ([id number]) [facility] ([facility]) [address] [place] [address] 12121 Glucose [Mass/Vol] 141 mg/dL High 74-99 [facility] Comment on above: Performed By: #### 2 276-4 #### OMERO KNIGHT ([id number]) [facility] ([facility]) [address] [place] [address] 09211 Phosphate [Mass/Vol] 2.0 mg/dL Low 2.5-4.9 [facility] Comment on above: Result Comment: The performance characteristics of phosphorus testing in heparinized plasma have been validated by the individual laboratory site where testing is performed. Testing on heparinized plasma is not approved by the FDA; however, such approval is not necessary. Performed By: #### 2 276-4 #### OMERO KNIGHT ([id number]) [facility] ([facility]) [address] [place] [address] 16522 Potassium [Moles/Vol] 3.3 mmol/L Low 3.5-5.3 [facility] Comment on above: Performed By: #### 2 276-4 #### OMERO KNIGHT ([id number]) [facility] ([facility]) [address] [place] [address] 16573 Sodium [Moles/Vol] 137 mmol/L Normal 136-145 [facility] Comment on above: Performed By: #### 2 276-4 #### OMERO KNIGHT ([id number]) [facility] ([facility]) [address] [place] [address] 33015 Urea nitrogen [Mass/Vol] 17 mg/dL Normal 6-23 [facility] Comment on above: Performed By: #### 2 276-4 #### OMERO KNIGHT ([id number]) [facility] ([facility]) [address] [place] [address] 99272 Tissue/Wound Culture/Smearon 11-16-2023 Bacteria identified Cx Nom (Unsp spec) No growth aerobically and anaerobically [facility] Work Phone: Bacteria identified Cx Nom (Unsp spec) No growth aerobically and anaerobically [facility] Work Phone: XR CHEST 1 VIEWon 11-16-2023 XR CHEST 1 VIEW Interpreted By: Pastor Chowdhury, and Niraj Moreno STUDY: XR CHEST 1 VIEW; 11/16/2023 5:05 pm INDICATION: Signs/Symptoms:PICC PLACEMENT. COMPARISON: 11/13/2023 chest radiograph ACCESSION NUMBER(S): [id number] ORDERING CLINICIAN: RU ORTEGA FINDINGS: AP radiograph of the chest was provided. Interval placement of a left upper extremity PICC line with tip projecting over the upper superior vena cava. Numerous skin roberta overlying the right paramedian chest. CARDIOMEDIASTINAL SILHOUETTE: Cardiomediastinal silhouette is prominent and stable in size and configuration. LUNGS: Small left pleural effusion. Mild perihilar and infrahilar patchy opacities bilaterally, slightly increased compared to the prior exam. Mild biapical scarring without evidence of discrete pneumothorax. ABDOMEN: No remarkable upper abdominal findings. BONES: No acute osseous abnormality. IMPRESSION: 1. Small left pleural effusion with mildly increased perihilar infrahilar patchy opacities, possibly related to edema. No pneumothorax. 2. Interval placement of a left upper extremity PICC line with tip overlying the upper superior vena cava. I personally reviewed the image(s)/study and resident interpretation as stated by Dr. Tiffanie Healy MD. I agree with the findings as stated. This study was interpreted at [facility], [place], [place]. MACRO: None Signed by: Pastor Barrientos 11/17/2023 6:46 AM Dictation workstation: [id number] Normal [facility] XR Chest Single viewon 11-15 Radiology Study observation (narrative) [facility] Work Phone: Bacteria identified Cx Nom ( Unsp spec)Ordered By: Betty Hutchins on 11-15-2023 Microscopic observation Gram stain Nom (Unsp spec) (1+) Rare Polymorphonuclear leukocytes [facility] Microscopic observation Gram stain Nom (Unsp spec) No organisms seen [facility] CBC panel Auto (Bld)on 11-14 Erythrocyte distribution width (RBC) [Ratio] 16.2 % High 11.5 - 14.5 % [facility] Hematocrit (Bld) [Volume fraction] 31.4 % Low 36.0 - 46.0 % [facility] Hemoglobin (Bld) [Mass/Vol] 9.8 g/dL Low 12.0 - 16.0 g/dL [facility] Interpretation and review of laboratory results Abnormal [facility] MCH (RBC) [Entitic mass] 26.8 pg 26.0 - 34.0 pg [facility] MCHC (RBC) [Mass/Vol] 31.2 g/dL Low 32.0 - 36.0 g/dL [facility] MCV (RBC) [Entitic vol] 86 fL 80 - 100 fL [facility] Nucleated RBC/100 WBC (Bld) [Ratio] 0.0 % [facility] Platelets (Bld) [#/Vol] 234 10*3/uL [facility] RBC (Bld) [#/Vol] 3.65 10*6/uL Low [facility] WBC (Bld) [#/Vol] 10.9 10*3/uL [facility] Erythrocyte distribution width (RBC) [Ratio] 16.2 % High 11.5-14.5 [facility] Comment on above: Performed By: #### 2 4323-8 #### OMERO KNIGHT ([id number]) [facility] ([facility]) [address] [place] [address] 25661 Hematocrit (Bld) [Volume fraction] 31.4 % Low 36.0-46.0 [facility] Comment on above: Performed By: #### 2 4323-8 #### OMERO KNIGHT ([id number]) [facility] ([facility]) [address] [place] [address] 13997 Hemoglobin (Bld) [Mass/Vol] 9.8 g/dL Low 12.0-16.0 [facility] Comment on above: Performed By: #### 2 4323-8 #### OMERO KNIGHT ([id number]) [facility] ([facility]) [address] [place] [address] 07853 MCH (RBC) [Entitic mass] 26.8 pg Normal 26.0-34.0 [facility] Comment on above: Performed By: #### 2 4323-8 #### OMERO KNIGHT ([id number]) [facility] ([facility]) [address] [place] [address] 39872 MCHC (RBC) [Mass/Vol] 31.2 g/dL Low 32.0-36.0 [facility] Comment on above: Performed By: #### 2 432-8 #### OMERO KNIGHT ([id number]) [facility] ([facility]) [address] [place] [address] 44372 MCV (RBC) [Entitic vol] 86 fL Normal 80-100 [facility] Comment on above: Performed By: #### 2 4322-8 #### OMERO KNIGHT ([id number]) [facility] ([facility]) [address] [place] [address] 83838 Nucleated RBC/100 WBC (Bld) [Ratio] 0.0 /100 WBCs Normal 0.0-0.0 [facility] Comment on above: Performed By: #### 2 4322-8 #### OMERO KNIGHT ([id number]) [facility] ([facility]) [address] [place] [address] 76520 Platelets (Bld) [#/Vol] 234 x10*3/uL Normal 150-450 [facility] Comment on above: Performed By: #### 2 4322-8 #### OMERO KNIGHT ([id number]) [facility] ([facility]) [address] [place] [address] 45507 RBC (Bld) [#/Vol] 3.65 x10*6/uL Low 4.00-5.20 [facility] Comment on above: Performed By: #### 2 4322-8 #### OMERO KNIGHT ([id number]) [facility] ([facility]) [address] [place] [address] 65121 WBC (Bld) [#/Vol] 10.9 x10*3/uL Normal 4.4-11.3 [facility] Comment on above: Performed By: #### 2 432-8 #### OMERO KNIGHT ([id number]) [facility] ([facility]) [address] [place] [address] 20926 ECG 12 LeadOrdered By: Fabio Bee on 11-15-2023 Atrial Rate 73 BPM [facility] Work Phone: [phone] P Critz -24 degrees [facility] Work Phone: [phone] P Offset 148 ms [facility] Work Phone: [phone] P Onset 107 ms [facility] Work Phone: [phone] MA Interval 196 ms [facility] Work Phone: [phone] Q Onset 205 ms [facility] Work Phone: [phone] QRS Count 12 beats [facility] Work Phone: [phone] QRS Duration 106 ms [facility] Work Phone: [phone] QT Interval 384 ms [facility] Work Phone: [phone] QTC Calculation(Bazett) 423 [facility] Work Phone: [phone] QTC Fredericia 410 ms [facility] Work Phone: [phone] R Critz -46 degrees [facility] Work Phone: [phone] T Critz -41 degrees [facility] Work Phone: [phone] T Offset 397 ms [facility] Work Phone: [phone] Ventricular Rate 73 BPM [facility] Work Phone: [phone] [facility] Work Phone: [phone] ECG 12 Leadon 11-15-2023 [facility] Work Phone: Glucose Test strip manual (B ld) [Mass/Vol]on 11-15-2023 Glucose [Mass/Vol] 156 mg/dL High 74 - 99 mg/dL [facility] Interpretation and review of laboratory results Abnormal [facility] Glucose [Mass/Vol] 156 mg/dL High 74-99 [facility] Comment on above: Performed By: #### 2 276-4 #### JAMIL EUGENE ([id number]) [facility] ([facility]) [address] [place] [address] Glucose [Mass/Vol] 176 mg/dL High 74 - 99 mg/dL [facility] Interpretation and review of laboratory results Abnormal [facility] Glucose [Mass/Vol] 176 mg/dL High 74-99 [facility] Comment on above: Performed By: #### 2 4323-8 #### OMERO KNIGHT ([id number]) [facility] ([facility]) [address] [place] [address] 85917 Glucose [Mass/Vol] 166 mg/dL High 74 - 99 mg/dL [facility] Interpretation and review of laboratory results Abnormal [facility] Glucose [Mass/Vol] 166 mg/dL High 74-99 [facility] Comment on above: Performed By: #### 2 4323-8 #### OMERO KNIGHT ([id number]) [facility] ([facility]) [address] [place] [address] 97143 Glucose [Mass/Vol] 138 mg/dL High 74 - 99 mg/dL [facility] Interpretation and review of laboratory results Abnormal [facility] Glucose [Mass/Vol] 138 mg/dL High 74-99 [facility] Comment on above: Performed By: #### 2 4323-8 #### OMERO KNIGHT ([id number]) [facility] ([facility]) [address] [place] [address] 94468 Magnesiumon 11-15-2023 Magnesium [Mass/Vol] 1.36 mg/dL Low 1.60 - 2.40 mg/dL [facility] Magnesium [Mass/Vol] 1.36 mg/dL Low 1.60-2.40 [facility] Comment on above: Performed By: #### 2 4323-8 #### OMERO KNIHGT ([id number]) [facility] ([facility]) [address] [place] [address] 72516 No Panel Informationon 11-14 Blood Expiration Date 12/11/2023 11:59:00 PM EDT [facility] PRODUCT BLOOD TYPE 5100 [facility] PRODUCT CODE [id number] [facility] Unit ABO O [facility] RH Positive [facility] UNIT VOLUME 350 [facility] XM INTEP COMP [facility] Interpretation and review of laboratory results Abnormal [facility] Prepare RBC: 4 Unitson 11-14 Blood Expiration Date 12/12/2023 11:59:00 PM EDT [facility] PRODUCT CODE [id number] [facility] Unit Number [id number] [facility] Unit Number [id number]-R [facility] Unit Number [id number] [facility] Unit Number [id number] [facility] UNIT VOLUME 288 [facility] Renal function 2000 panelon 11-15-2023 Albumin BCP dye [Mass/Vol] 2.6 g/dL Low 3.4 - 5.0 g/dL [facility] Anion gap [Moles/Vol] 14 mmol/L 10 - 2 0 mmol/L [facility] Calcium [Mass/Vol] 8.1 mg/dL Low 8.6 - 10. 6 mg/dL [facility] Chloride [Moles/Vol] 96 mmol/L Low 98 - 10 7 mmol/L [facility] CO2 [Moles/Vol] 29 mmol/L 21 - 32 mmol/L [facility] Creatinine [Mass/Vol] 0.95 mg/dL 0.50 - 1.05 mg/dL [facility] GFR/1.73 sq M.predicted among non-blacks MDRD (S/P/Bld) [Vol rate/Area] 63 mL/min/{1.73_m2} - PINF [facility] Glucose [Mass/Vol] 183 mg/dL High 74 - 99 mg/dL [facility] Phosphate [Mass/Vol] 3.1 mg/dL 2.5 - 4 .9 mg/dL [facility] Potassium [Moles/Vol] 3.8 mmol/L 3.5 - 5.3 mmol/L [facility] Sodium [Moles/Vol] 135 mmol/L Low 136 - 145 mmol/L [facility] Urea nitrogen [Mass/Vol] 20 mg/dL 6 - 23 mg/dL [facility] Albumin BCP dye [Mass/Vol] 2.6 g/dL Low 3.4-5.0 [facility] Comment on above: Performed By: #### 2 4323-8 #### OMERO KNIGHT ([id number]) [facility] ([facility]) [facility] [place] [address] Anion gap [Moles/Vol] 14 mmol/L Normal 10-20 [facility] Comment on above: Performed By: #### 2 4322-8 #### OMERO KNIGHT ([id number]) [facility] ([facility]) [address] [place] [address] 69729 Calcium [Mass/Vol] 8.1 mg/dL Low 8.6-10.6 [facility] Comment on above: Performed By: #### 2 4322-8 #### OMERO KNIGHT ([id number]) [facility] ([facility]) [address] [place] [address] 74418 Chloride [Moles/Vol] 96 mmol/L Low 98-107 [facility] Comment on above: Performed By: #### 2 4322-8 #### OMERO KNIGHT ([id number]) [facility] ([facility]) [address] [place] [address] 64477 CO2 [Moles/Vol] 29 mmol/L Normal 21-32 [facility] Comment on above: Performed By: #### 2 4322-8 #### OMERO KNIGHT ([id number]) [facility] ([facility]) [address] [place] [address] 96301 Creatinine [Mass/Vol] 0.95 mg/dL Normal 0.50-1.05 [facility] Comment on above: Performed By: #### 2 432-8 #### OMERO KNIGHT ([id number]) [facility] ([facility]) [address] [place] [address] 64016 Glomerular filtration rate/1.73 sq M.predicted 63 mL/min/1.73m*2 Normal >60 [facility] Comment on above: Result Comment: Calc ulations of estimated GFR are performed using the 2020 CKD-EPI Study Refit equation without the race variable for the IDMS-Traceable creatinine methods. https://jasn.asnjournals.org/content/early/ASN.26169 18118 Performed By: #### 2 4323-8 #### OMERO KNIGHT ([id number]) [facility] ([facility]) [address] [place] [address] 23160 Glucose [Mass/Vol] 183 mg/dL High 74-99 [facility] Comment on above: Performed By: #### 2 4323-8 #### OMERO KNIGHT ([id number]) [facility] ([facility]) [address] [place] [address] 06905 Phosphate [Mass/Vol] 3.1 mg/dL Normal 2.5-4.9 [facility] Comment on above: Result Comment: The performance characteristics of phosphorus testing in heparinized plasma have been validated by the individual laboratory site where testing is performed. Testing on heparinized plasma is not approved by the FDA; however, such approval is not necessary. Performed By: #### 2 4323-8 #### OMERO KNIGHT ([id number]) [facility] ([facility]) [address] [place] [address] 24192 Potassium [Moles/Vol] 3.8 mmol/L Normal 3.5-5.3 [facility] Comment on above: Performed By: #### 2 4323-8 #### OMERO KNIGHT ([id number]) [facility] ([facility]) [address] [place] [address] 42360 Sodium [Moles/Vol] 135 mmol/L Low 136-145 [facility] Comment on above: Performed By: #### 2 4323-8 #### OMERO KNIGHT ([id number]) [facility] ([facility]) [address] [place] [address] 23415 Urea nitrogen [Mass/Vol] 20 mg/dL Normal 6-23 [facility] Comment on above: Performed By: #### 2 4323-8 #### OMERO KNIGHT ([id number]) [facility] ([facility]) [address] [place] [address] Tissue/Wound Culture/SmearOr dered By: Betty Hutchins on 11-15-2023 Bacteria identified Cx Nom (Unsp spec) No growth aerobically and anaerobically [facility] Bacteria identifiedon 2023 Bacteria identified Cx Nom (Unsp spec) Test: Tissue/Wound Culture/Smear Specimen Source: SPINE Specimen Type: Swab Specimen Date: 11/14/20231754 Result Date: 11/16/2023 143 Result Status: Final result Resulting Lab: [facility] [address] [place] [address] CULTURE No growth aerobically and anaerobically STAIN No polymorphonuclear leukocytes seen No organisms seen Normal [facility] Comment on above: Performed By: #### 2 4773-8 #### OMERO KNIGHT ([id number]) [facility] ([facility]) [address] [place] [address] Bacteria identified Cx Nom (Unsp spec) Test: Tissue/Wound Culture/Smear Specimen Source: SPINE Specimen Type: Swab Specimen Date: 11/14/20231732 Result Date: 11/16/2023 1200 Result Status: Final result Resulting Lab: [facility] [address] [place] [address] CULTURE No growth aerobically and anaerobically STAIN No polymorphonuclear leukocytes seen No organisms seen Normal [facility] Comment on above: Performed By: #### 2 4323-8 #### OMERO KNIGHT ([id number]) [facility] ([facility]) [address] [place] [address] CBC panel Auto (Bld)on 11-13 Erythrocyte distribution width (RBC) [Ratio] 15.9 % High 11.5 - 14.5 % [facility] Hematocrit (Bld) [Volume fraction] 34.8 % Low 36.0 - 46.0 % [facility] Hemoglobin (Bld) [Mass/Vol] 10.5 g/dL Low 12.0 - 16.0 g/dL [facility] Interpretation and review of laboratory results Abnormal [facility] MCH (RBC) [Entitic mass] 25.9 pg Low 26.0 - 34.0 pg [facility] MCHC (RBC) [Mass/Vol] 30.2 g/dL Low 32.0 - 36.0 g/dL [facility] MCV (RBC) [Entitic vol] 86 fL 80 - 100 fL [facility] Nucleated RBC/100 WBC (Bld) [Ratio] 0.0 % [facility] Platelets (Bld) [#/Vol] 190 10*3/uL [facility] RBC (Bld) [#/Vol] 4.06 10*6/uL [facility] WBC (Bld) [#/Vol] 6.4 10*3/uL [facility] Erythrocyte distribution width (RBC) [Ratio] 15.9 % High 11.5-14.5 [facility] Comment on above: Performed By: #### 5 8410-2 #### OMERO KNIGHT ([id number]) [facility] ([facility]) [address] [place] [address] 95501 Hematocrit (Bld) [Volume fraction] 34.8 % Low 36.0-46.0 [facility] Comment on above: Performed By: #### 5 8410-2 #### OMERO KNIGHT ([id number]) [facility] ([facility]) [address] [place] [address] 16014 Hemoglobin (Bld) [Mass/Vol] 10.5 g/dL Low 12.0-16.0 [facility] Comment on above: Performed By: #### 5 8410-2 #### OMERO KNIGHT ([id number]) [facility] ([facility]) [address] [place] [address] 77940 MCH (RBC) [Entitic mass] 25.9 pg Low 26.0-34.0 [facility] Comment on above: Performed By: #### 5 8410-2 #### OMERO KNIGHT ([id number]) [facility] ([facility]) [address] [place] [address] 69018 MCHC (RBC) [Mass/Vol] 30.2 g/dL Low 32.0-36.0 [facility] Comment on above: Performed By: #### 5 8410-2 #### OMERO KNIGHT ([id number]) [facility] ([facility]) [address] [place] [address] MCV (RBC) [Entitic vol] 86 fL Normal 80-100 [facility] Comment on above: Performed By: #### 5 8410-2 #### OMERO KNIGHT ([id number]) [facility] ([facility]) [address] [place] [address] Nucleated RBC/100 WBC (Bld) [Ratio] 0.0 /100 WBCs Normal 0.0-0.0 [facility] Comment on above: Performed By: #### 5 8410-2 #### OMERO KNIGHT ([id number]) [facility] ([facility]) [address] [place] [address] 65406 Platelets (Bld) [#/Vol] 190 x10*3/uL Normal 150-450 [facility] Comment on above: Performed By: #### 5 8410-2 #### OMERO KNIGHT ([id number]) [facility] ([facility]) [address] [place] [address] 05566 RBC (Bld) [#/Vol] 4.06 x10*6/uL Normal 4.00-5.20 [facility] Comment on above: Performed By: #### 5 8410-2 #### OMERO KNIGHT ([id number]) [facility] ([facility]) [address] [place] [address] 64920 WBC (Bld) [#/Vol] 6.4 x10*3/uL Normal 4.4-11.3 [facility] Comment on above: Performed By: #### 5 8410-2 #### OMERO KNIGHT ([id number]) [facility] ([facility]) [address] [place] [address] CT Guidance for deep biopsy of Boneon 11-14-2023 [facility] Work Phone: CT Guidance for deep biopsy of BoneOrdered By: Caron Donaldson on 11-14-2023 [facility] Work Phone: Extra Urine Draper Tubeon Extra Tube Hold for add-ons. [facility] FL FLUORO IMAGES NO CHARGEon 11-14-2023 [place] FLUORO IMAGES NO CHARGE These images are not reportable by radiology and will not be interpreted by Radiologists. Normal [facility] Gas and Carbon monoxide and Electrolytes panel (BldA)on 11-14-2023 Anion gap 4 (BldA) [Moles/Vol] 8 Low [facility] Base excess Calc (Bld) [Moles/Vol] 5.0 mmol/L High -2.0 - 3.0 mmol/L [facility] Calcium.ionized (BldA) [Moles/Vol] 1.18 mmol/L 1.10 - 1.33 mmol/L [facility] Chloride (BldA) [Moles/Vol] 101 mmol/L 98 - 107 mmol/L [facility] CO2 (Bld) [Partial pressure] 40 mm[Hg] [facility] Glucose [Mass/Vol] 137 mg/dL High 74 - 99 mg/dL [facility] HCO3 (Bld) [Moles/Vol] 29.1 mmol/L High 22.0 - 26.0 mmol/L [facility] Hematocrit Est (Bld) [Volume fraction] 30.0 % Low 36.0 - 46.0 % [facility] Hemoglobin (Bld) [Mass/Vol] 10.0 g/dL Low 12.0 - 16.0 g/dL [facility] Inhaled oxygen concentration 50 % [facility] Interpretation and review of laboratory results Abnormal [facility] Lactate (BldA) [Moles/Vol] 1.5 mmol/L 0.4 - 2.0 mmol/L [facility] Oxygen (Bld) [Partial pressure] 189 mm[Hg] High [facility] Oxyhemoglobin (BldA) [Mass fraction] 97.7 % 94.0 - 98.0 % [facility] pH (Bld) 7.47 [pH] High 7.38 - 7.42 pH [facility] Potassium (BldA) [Moles/Vol] 3.7 mmol/L 3.5 - 5.3 mmol/L [facility] Sodium (BldA) [Moles/Vol] 134 mmol/L Low 136 - 145 mmol/L [facility] Anion gap 4 (BldA) [Moles/Vol] 8 mmo/L Low 10-25 [facility] Comment on above: Performed By: #### 5 8410-2 #### OMERO KNIGHT ([id number]) [facility] ([facility]) [address] [place] [address] Base excess Calc (Bld) [Moles/Vol] 5.0 mmol/L High -2.0-3.0 [facility] Comment on above: Performed By: #### 5 8410-2 #### OMERO KNIGHT ([id number]) [facility] ([facility]) [address] [place] [address] 23397 Calcium.ionized (BldA) [Moles/Vol] 1.18 mmol/L Normal 1.10-1.33 [facility] Comment on above: Performed By: #### 5 8410-2 #### OMERO KNIGHT ([id number]) [facility] ([facility]) [address] [place] [address] 08637 Chloride (BldA) [Moles/Vol] 101 mmol/L Normal 98-107 [facility] Comment on above: Performed By: #### 5 8410-2 #### OMERO KNIGHT ([id number]) [facility] ([facility]) [address] [place] [address] 78120 CO2 (Bld) [Partial pressure] 40 mm Hg Normal 38-42 [facility] Comment on above: Performed By: #### 5 8410-2 #### OMERO KNIGHT ([id number]) [facility] ([facility]) [address] [place] [address] 89882 Glucose [Mass/Vol] 137 mg/dL High 74-99 [facility] Comment on above: Performed By: #### 5 8410-2 #### OMERO KINGHT ([id number]) [facility] ([facility]) [address] [place] [address] 44074 HCO3 (Bld) [Moles/Vol] 29.1 mmol/L High 22.0-26.0 [facility] Comment on above: Performed By: #### 5 8410-2 #### OMERO KNIGHT ([id number]) [facility] ([facility]) [address] [place] [address] 68381 Hematocrit Est (Bld) [Volume fraction] 30.0 % Low 36.0-46.0 [facility] Comment on above: Performed By: #### 5 8410-2 #### OMERO KNIGHT ([id number]) [facility] ([facility]) [address] [place] [address] 90399 Hemoglobin (Bld) [Mass/Vol] 10.0 g/dL Low 12.0-16.0 [facility] Comment on above: Performed By: #### 5 8410-2 #### OMERO KNIGHT ([id number]) [facility] ([facility]) [address] [place] [address] 04257 Inhaled oxygen concentration 50 % Normal [facility] Comment on above: Performed By: #### 5 8410-2 #### OMERO KNIGHT ([id number]) [facility] ([facility]) [address] [place] [address] 61757 Lactate (BldA) [Moles/Vol] 1.5 mmol/L Normal 0.4-2.0 [facility] Comment on above: Performed By: #### 5 8410-2 #### OMERO KNIGHT ([id number]) [facility] ([facility]) [address] [place] [address] 45375 Oxygen (Bld) [Partial pressure] 189 mm Hg High 85-95 [facility] Comment on above: Performed By: #### 5 8410-2 #### OMERO KNIGHT ([id number]) [facility] ([facility]) [address] [place] [address] Oxyhemoglobin (BldA) [Mass fraction] 97.7 % Normal 94.0-98.0 [facility] Comment on above: Performed By: #### 5 8410-2 #### OMERO KNIGHT ([id number]) [facility] ([facility]) [address] [place] [address] pH (Bld) 7.47 [pH] High 7.38-7.42 [facility] Comment on above: Performed By: #### 5 8410-2 #### OMERO KNIGHT ([id number]) [facility] ([facility]) [address] [place] [address] Potassium (BldA) [Moles/Vol] 3.7 mmol/L Normal 3.5-5.3 [facility] Comment on above: Performed By: #### 5 8410-2 #### OMERO KNIGHT ([id number]) [facility] ([facility]) [address] [place] [address] Sodium (BldA) [Moles/Vol] 134 mmol/L Low 136-145 [facility] Comment on above: Performed By: #### 5 8410-2 #### OMERO KNIGHT ([id number]) [facility] ([facility]) [address] [place] [address] Anion gap 4 (BldA) [Moles/Vol] 5 Low [facility] Base excess Calc (Bld) [Moles/Vol] 6.2 mmol/L High -2.0 - 3.0 mmol/L [facility] Calcium.ionized (BldA) [Moles/Vol] 1.17 mmol/L 1.10 - 1.33 mmol/L [facility] Chloride (BldA) [Moles/Vol] 101 mmol/L 98 - 107 mmol/L [facility] CO2 (Bld) [Partial pressure] 36 mm[Hg] Low [facility] Glucose [Mass/Vol] 120 mg/dL High 74 - 99 mg/dL [facility] HCO3 (Bld) [Moles/Vol] 29.4 mmol/L High 22.0 - 26.0 mmol/L [facility] Hematocrit Est (Bld) [Volume fraction] 31.0 % Low 36.0 - 46.0 % [facility] Hemoglobin (Bld) [Mass/Vol] 10.3 g/dL Low 12.0 - 16.0 g/dL [facility] Inhaled oxygen concentration 50 % [facility] Interpretation and review of laboratory results Abnormal [facility] Lactate (BldA) [Moles/Vol] 1.1 mmol/L 0.4 - 2.0 mmol/L [facility] Oxygen (Bld) [Partial pressure] 191 mm[Hg] High [facility] Oxyhemoglobin (BldA) [Mass fraction] 97.6 % 94.0 - 98.0 % [facility] pH (Bld) 7.52 [pH] High 7.38 - 7.42 pH [facility] Potassium (BldA) [Moles/Vol] 2.8 mmol/L Critically low 3.5 - 5.3 mmol/L [facility] Sodium (BldA) [Moles/Vol] 133 mmol/L Low 136 - 145 mmol/L [facility] Anion gap 4 (BldA) [Moles/Vol] 5 mmo/L Low 10-25 [facility] Comment on above: Performed By: #### 5 8410-2 #### OMERO KNIGHT ([id number]) [facility] ([facility]) [address] [place] [address] Base excess Calc (Bld) [Moles/Vol] 6.2 mmol/L High -2.0-3.0 [facility] Comment on above: Performed By: #### 5 8410-2 #### OMERO KNIGHT ([id number]) [facility] ([facility]) [address] [place] [address] Calcium.ionized (BldA) [Moles/Vol] 1.17 mmol/L Normal 1.10-1.33 [facility] Comment on above: Performed By: #### 5 8410-2 #### OMERO KNIGHT ([id number]) [facility] ([facility]) [address] [place] [address] 24675 Chloride (BldA) [Moles/Vol] 101 mmol/L Normal 98-107 [facility] Comment on above: Performed By: #### 5 8410-2 #### OMERO KNIGHT ([id number]) [facility] ([facility]) [address] [place] [address] 66568 CO2 (Bld) [Partial pressure] 36 mm Hg Low 38-42 [facility] Comment on above: Performed By: #### 5 8410-2 #### OMERO KNIGHT ([id number]) [facility] ([facility]) [address] [place] [address] 09113 Glucose [Mass/Vol] 120 mg/dL High 74-99 [facility] Comment on above: Performed By: #### 5 8410-2 #### OMERO KNIGHT ([id number]) [facility] ([facility]) [address] [place] [address] 13451 HCO3 (Bld) [Moles/Vol] 29.4 mmol/L High 22.0-26.0 [facility] Comment on above: Performed By: #### 5 8410-2 #### OMERO KNIGHT ([id number]) [facility] ([facility]) [address] [place] [address] 50593 Hematocrit Est (Bld) [Volume fraction] 31.0 % Low 36.0-46.0 [facility] Comment on above: Performed By: #### 5 8410-2 #### OMERO KNIGHT ([id number]) [facility] ([facility]) [address] [place] [address] 55009 Hemoglobin (Bld) [Mass/Vol] 10.3 g/dL Low 12.0-16.0 [facility] Comment on above: Performed By: #### 5 8410-2 #### OMERO KNIGHT ([id number]) [facility] ([facility]) [address] [place] [address] 34753 Inhaled oxygen concentration 50 % Normal [facility] Comment on above: Performed By: #### 5 8410-2 #### OMERO KNIGHT ([id number]) [facility] ([facility]) [address] [place] [address] 12470 Lactate (BldA) [Moles/Vol] 1.1 mmol/L Normal 0.4-2.0 [facility] Comment on above: Performed By: #### 5 8410-2 #### OMERO KNIGHT ([id number]) [facility] ([facility]) [address] [place] [address] 08651 Oxygen (Bld) [Partial pressure] 191 mm Hg High 85-95 [facility] Comment on above: Performed By: #### 5 8410-2 #### OMERO KNIGHT ([id number]) [facility] ([facility]) [address] [place] [address] 43651 Oxyhemoglobin (BldA) [Mass fraction] 97.6 % Normal 94.0-98.0 [facility] Comment on above: Performed By: #### 5 8410-2 #### OMERO KNIGHT ([id number]) [facility] ([facility]) [address] [place] [address] 31184 pH (Bld) 7.52 [pH] High 7.38-7.42 [facility] Comment on above: Performed By: #### 5 8410-2 #### OMERO KNIGHT ([id number]) [facility] ([facility]) [address] [place] [address] 11931 Potassium (BldA) [Moles/Vol] 2.8 mmol/L Critically low 3.5-5.3 [facility] Comment on above: Performed By: #### 5 8410-2 #### OMERO KNIGHT ([id number]) [facility] ([facility]) [address] [place] [address] 87676 Sodium (BldA) [Moles/Vol] 133 mmol/L Low 136-145 [facility] Comment on above: Performed By: #### 5 8410-2 #### OMERO KNIGHT ([id number]) [facility] ([facility]) [address] [place] [address] 19365 Glucose Test strip manual (B ld) [Mass/Vol]on 11-14-2023 Glucose [Mass/Vol] 181 mg/dL High 74 - 99 mg/dL [facility] Interpretation and review of laboratory results Abnormal [facility] Glucose [Mass/Vol] 181 mg/dL High 74-99 [facility] Comment on above: Performed By: #### 2 4323-8 #### OMERO KNIGHT ([id number]) [facility] ([facility]) [address] [place] [address] 10213 Glucose [Mass/Vol] 112 mg/dL High 74 - 99 mg/dL [facility] Interpretation and review of laboratory results Abnormal [facility] Glucose [Mass/Vol] 112 mg/dL High 74-99 [facility] Comment on above: Performed By: #### 5 8410-2 #### OMERO KNIGHT ([id number]) [facility] ([facility]) [address] [place] [address] 73698 Glucose [Mass/Vol] 115 mg/dL High 74 - 99 mg/dL [facility] Interpretation and review of laboratory results Abnormal [facility] Glucose [Mass/Vol] 115 mg/dL High 74-99 [facility] Comment on above: Performed By: #### 5 8410-2 #### OMERO KNIGHT ([id number]) [facility] ([facility]) [address] [place] [address] 55831 PT and aPTT panel Coag (PPP) on 11-14-2023 aPTT Coag (PPP) [Time] 34 s [facility] INR Coag (PPP) [Relative time] 1.1 {INR} 0.9 - 1.1 [facility] Interpretation and review of laboratory results Normal [facility] PT Coag (PPP) [Time] 12.7 s [facility] aPTT Coag (PPP) [Time] 34 s Normal 27-38 [facility] Comment on above: Order Comment: The A PTT is no longer used for monitoring Unfractionated Heparin Therapy. For monitoring Heparin Therapy, use the Heparin Assay. Performed By: #### 5 8410-2 #### OMERO KNIGHT ([id number]) [facility] ([facility]) [facility] [place] [address] INR Coag (PPP) [Relative time] 1.1 Normal 0.9-1.1 [facility] Comment on above: Order Comment: The A PTT is no longer used for monitoring Unfractionated Heparin Therapy. For monitoring Heparin Therapy, use the Heparin Assay. Performed By: #### 5 8410-2 #### OMERO KNIGHT ([id number]) [facility] ([facility]) [facility] [place] [address] PT Coag (PPP) [Time] 12.7 s Normal 9.8-12.8 [facility] Comment on above: Order Comment: The A PTT is no longer used for monitoring Unfractionated Heparin Therapy. For monitoring Heparin Therapy, use the Heparin Assay. Performed By: #### 5 8410-2 #### OMERO KNIGHT ([id number]) [facility] ([facility]) [address] [place] [address] 15093 Renal function 2000 panelon 11-14-2023 Albumin BCP dye [Mass/Vol] 2.7 g/dL Low 3.4 - 5.0 g/dL [facility] Anion gap [Moles/Vol] 10 mmol/L 10 - 2 0 mmol/L [facility] Calcium [Mass/Vol] 8.9 mg/dL 8.6 - 10. 6 mg/dL [facility] Chloride [Moles/Vol] 96 mmol/L Low 98 - 10 7 mmol/L [facility] CO2 [Moles/Vol] 35 mmol/L High 21 - 32 mmol/L [facility] Creatinine [Mass/Vol] 0.97 mg/dL 0.50 - 1.05 mg/dL [facility] GFR/1.73 sq M.predicted among non-blacks MDRD (S/P/Bld) [Vol rate/Area] 61 mL/min/{1.73_m2} - PINF [facility] Glucose [Mass/Vol] 110 mg/dL High 74 - 99 mg/dL [facility] Interpretation and review of laboratory results Abnormal [facility] Phosphate [Mass/Vol] 3.3 mg/dL 2.5 - 4 .9 mg/dL [facility] Potassium [Moles/Vol] 3.4 mmol/L Low 3.5 - 5.3 mmol/L [facility] Sodium [Moles/Vol] 138 mmol/L 136 - 145 mmol/L [facility] Urea nitrogen [Mass/Vol] 16 mg/dL 6 - 23 mg/dL [facility] Albumin BCP dye [Mass/Vol] 2.7 g/dL Low 3.4-5.0 [facility] Comment on above: Performed By: #### 5 8410-2 #### OMERO KNIGHT ([id number]) [facility] ([facility]) [address] [place] [address] 31429 Anion gap [Moles/Vol] 10 mmol/L Normal 10-20 [facility] Comment on above: Performed By: #### 5 8410-2 #### OMERO KNIGHT ([id number]) [facility] ([facility]) [address] [place] [address] 51848 Calcium [Mass/Vol] 8.9 mg/dL Normal 8.6-10.6 [facility] Comment on above: Performed By: #### 5 8410-2 #### OMERO KNIGHT ([id number]) [facility] ([facility]) [address] [place] [address] 76462 Chloride [Moles/Vol] 96 mmol/L Low 98-107 [facility] Comment on above: Performed By: #### 5 8410-2 #### OMERO KNIGHT ([id number]) [facility] ([facility]) [address] [place] [address] 92988 CO2 [Moles/Vol] 35 mmol/L High 21-32 [facility] Comment on above: Performed By: #### 5 8410-2 #### OMERO KNIGHT ([id number]) [facility] ([facility]) [address] [place] [address] 28706 Creatinine [Mass/Vol] 0.97 mg/dL Normal 0.50-1.05 [facility] Comment on above: Performed By: #### 5 8410-2 #### OMERO KNIGHT ([id number]) [facility] ([facility]) [address] [place] [address] 92092 Glomerular filtration rate/1.73 sq M.predicted 61 mL/min/1.73m*2 Normal >60 [facility] Comment on above: Result Comment: Calc ulations of estimated GFR are performed using the 2020 CKD-EPI Study Refit equation without the race variable for the IDMS-Traceable creatinine methods. https://jasn.asnjournals.org/content/early//ASN.45540 41029 Performed By: #### 5 8410-2 #### OMERO KNIGHT ([id number]) [facility] ([facility]) [address] [place] [address] 85185 Glucose [Mass/Vol] 110 mg/dL High 74-99 [facility] Comment on above: Performed By: #### 5 8410-2 #### OMERO KNIGHT ([id number]) [facility] ([facility]) [address] [place] [address] 06220 Phosphate [Mass/Vol] 3.3 mg/dL Normal 2.5-4.9 [facility] Comment on above: Result Comment: The performance characteristics of phosphorus testing in heparinized plasma have been validated by the individual laboratory site where testing is performed. Testing on heparinized plasma is not approved by the FDA; however, such approval is not necessary. Performed By: #### 5 8410-2 #### OMERO KNIGHT ([id number]) [facility] ([facility]) [address] [place] [address] 87732 Potassium [Moles/Vol] 3.4 mmol/L Low 3.5-5.3 [facility] Comment on above: Performed By: #### 5 8410-2 #### OMERO KNIGHT ([id number]) [facility] ([facility]) [address] [place] [address] 57304 Sodium [Moles/Vol] 138 mmol/L Normal 136-145 [facility] Comment on above: Performed By: #### 5 8410-2 ###Chuyita KNIGHT ([id number]) [facility] ([facility]) [address] [place] [address] Urea nitrogen [Mass/Vol] 16 mg/dL Normal 6- [facility] Comment on above: Performed By: #### 5 8410-2 #### OMERO KNIGHT ([id number]) [facility] ([facility]) [facility] [place] [address] XR Chest Single viewon 11-13 [facility] MMODAL [facility] MMODAL [facility] Work Phone: XR Chest Single viewOrdered By: Bunny Asher on 11-14-2023 [facility] Work Phone: XR tomography Unspecified bhavik dy regionon 11-14-2023 IMAGING BROAD RANGE PCR-BACTERIAon 0 11-13-2023 SCAN RESULT See Scanned Result Normal [facility] Comment on above: Order Comment: EPIDU RAL ABSCESS Performed By: #### 1 9123-9 #### OMERO KNIGHT ([id number]) [facility] ([facility]) [address] [place] [address] 70651 Bacteria identifiedon 2023 Bacteria identified Cx Nom (Unsp spec) Test: Tissue/Wound Culture/Smear Specimen Source: Wound/Tissue Specimen Type: Tissue/Biopsy Specimen Date: 11/13/2023 1111 Result Date: 11/15/2023 1013 Result Status: Final result Resulting Lab: [facility] [address] [place] [address] CULTURE No growth aerobically and anaerobically STAIN (1+) Rare Polymorphonuclear leukocytes No organisms seen Normal [facility] Comment on above: Performed By: #### 5 8410-2 #### OMERO KNIGHT ([id number]) [facility] ([facility]) [address] [place] [address] 68896 Bacteria identified Cx Nom ( Bld)on 11-13-2023 Interpretation and review of laboratory results Normal [facility] Blood type and Indirect anti body screen panel (Bld)on 11-13-2023 ABO group Nom (Bld) O [facility] Blood group antibody screen Ql Negative [facility] D Ag Ql (Bld) Positive [facility] ABO group Nom (Bld) O Normal [facility] Comment on above: Performed By: #### 4 548-4 #### OMERO KNIGHT ([id number]) [facility] ([facility]) [address] [place] [address] Blood group antibody screen Ql Negative [facility] Comment on above: Performed By: #### 4 548-4 #### OMERO KNIGHT ([id number]) [facility] ([facility]) [address] [place] [address] D Ag Ql (Bld) Positive [facility] Comment on above: Performed By: #### 4 548-4 #### OMERO KNIGHT ([id number]) [facility] ([facility]) [address] [place] [address] CT Guidance for deep biopsy of Boneon 11-13-2023 Radiology Study observation (narrative) [facility] Work Phone: Glucose Test strip manual (B ld) [Mass/Vol]on 11-13-2023 Glucose [Mass/Vol] 122 mg/dL High 74 - 99 mg/dL [facility] Interpretation and review of laboratory results Abnormal [facility] Glucose [Mass/Vol] 122 mg/dL High 74-99 [facility] Comment on above: Performed By: #### 4 548-4 #### OMERO KNIGHT ([id number]) [facility] ([facility]) [address] [place] [address] Glucose [Mass/Vol] 171 mg/dL High 74 - 99 mg/dL [facility] Interpretation and review of laboratory results Abnormal [facility] Glucose [Mass/Vol] 171 mg/dL High 74-99 [facility] Comment on above: Performed By: #### 4 548-4 #### OMERO KNIGHT ([id number]) [facility] ([facility]) [facility] [place] [address] Glucose [Mass/Vol] 122 mg/dL High 74 - 99 mg/dL [facility] Interpretation and review of laboratory results Abnormal [facility] Glucose [Mass/Vol] 122 mg/dL High 74-99 [facility] Comment on above: Performed By: #### 4 548-4 #### OMERO KNIGHT ([id number]) [facility] ([facility]) [facility] [place] [address] Glucose [Mass/Vol] 109 mg/dL High 74 - 99 mg/dL [facility] Interpretation and review of laboratory results Abnormal [facility] Glucose [Mass/Vol] 109 mg/dL High 74-99 [facility] Comment on above: Performed By: #### 4 548-4 #### OMERO KNIGHT ([id number]) [facility] ([facility]) [address] [place], [place] [id number] Laboratory - Microbiology an d Antimicrobial susceptibilityon 11-13-2023 Bacteria identified Cx Nom (Bld) No growth at 4 days - FINAL REPORT [facility] Surgical pathology studyon 0 11-13-2023 Surgical pathology study Pathology report.total SEE COMMENT Surgical Pathology Case: [id number] Authorizing Provider: Ru Ortega MD Collected: 11/13/2023 1109 Ordering Location: [facility] Received: 11/13/[address] [place] [address] Pathologist: Edmundo Joe MD Specimen: BONE BIOPSY (DECAL), T SPINE Path report.final diagnosis SEE COMMENT THORACIC SPINE, NEEDLE CORE BIOPSY: - OSTEOCARTILAGINOUS TISSUE, NO MALIGNANCY IDENTIFIED. Laboratory comment By the signature on this report, the individual or group listed as making the Final Interpretation/Diagnosis certifies that they have reviewed this case. Path report.comments Multiple deeper levels were examined. Path report.relevant Hx pt w multiple lung nodules and T spine lesion Path report.gross observation SEE COMMENT Received in formalin, labeled with the patient's name and hospital number, are 2 cylindrical segments of bone aggregating to 1.2 x 0.2 x 0.2 cm. The specimen is submitted in toto in one cassette following decalcification. RCC Normal [facility] Urinalysis complete W Reflex Culture panel (U)on 11-13-2023 Appearance (U) Clear Clear [facility] Bilirubin (U) [Mass/Vol] Negative NEGATIVE [facility] Color (U) Light-Yellow Light-Yellow , Yellow, Dark-Yellow [facility] Epithelial cells.squamous Auto (Urine sed) [#/Area] 1-9 (SPARSE) Reference range not established. /HPF [facility] Glucose Auto test strip (U) [Mass/Vol] Normal Normal mg/dL [facility] Interpretation and review of laboratory results Normal [facility] Ketones (U) [Mass/Vol] Negative NEGAT JORGE mg/dL [facility] Leukocyte esterase Auto test strip Ql (U) Negative NEGATIVE [facility] Nitrite Auto test strip Ql (U) Negative NEGATIVE [facility] pH (U) 7.0 [pH] 5.0, 5.5, 6.0, 6.5, 7.0, 7.5, 8.0 [facility] Protein (U) [Mass/Vol] 20 (TRACE) NEGAT JORGE, 10 (TRACE), 20 (TRACE) mg/dL [facility] RBC (U) [#/Vol] Negative NEGATIVE [facility] RBC Auto (Urine sed) [#/Area] 1-2 NONE, 1-2, 3-5 /HPF [facility] Specific gravity (U) [Rel density] 1.011 1.005 - 1.035 [facility] Urobilinogen (U) [Mass/Vol] Normal Normal mg/dL [facility] WBC Auto (Urine sed) [#/Area] 1-5 1-5, NONE /HPF [facility] Appearance (U) Clear Normal Clear [facility] Comment on above: Performed By: #### 4 548-4 #### JAMIL EUGENE ([id number]) [facility] ([facility]) [address] [place] [address] Bilirubin (U) [Mass/Vol] Negative Normal NEGATIVE [facility] Comment on above: Performed By: #### 4 548-4 #### OMERO KNIGHT ([id number]) [facility] ([facility]) [address] [place], [place] [address] Color (U) Light-Yellow Normal Light-Yellow , Yellow, Dark-Yellow [facility] Comment on above: Performed By: #### 4 548-4 #### OMERO KNIGHT ([id number]) [facility] ([facility]) [address] [place] [address] Epithelial cells.squamous Auto (Urine sed) [#/Area] 1-9 (SPARSE) Normal Reference range not established. [facility] Comment on above: Performed By: #### 4 548-4 #### OMERO KNIGHT ([id number]) [facility] ([facility]) [address] [place] [address] Glucose Auto test strip (U) [Mass/Vol] Normal Normal Normal [facility] Comment on above: Performed By: #### 4 548-4 #### OMERO KNIGHT ([id number]) [facility] ([facility]) [address] [place] [address] 22308 Ketones (U) [Mass/Vol] Negative Normal NEGATIVE [facility] Comment on above: Performed By: #### 4 548-4 #### OMERO KNIGHT ([id number]) [facility] ([facility]) [address] [place] [address] 80621 Leukocyte esterase Auto test strip Ql (U) Negative Normal NEGATIVE [facility] Comment on above: Performed By: #### 4 548-4 #### OMERO KNIGHT ([id number]) [facility] ([facility]) [address] [place] [address] 69020 Nitrite Auto test strip Ql (U) Negative Normal NEGATIVE [facility] Comment on above: Performed By: #### 4 548-4 #### OMERO KNIGHT ([id number]) [facility] ([facility]) [address] [place] [address] 85620 pH (U) 7.0 [pH] Normal 5.0, 5.5, 6.0, 6.5, 7.0, 7.5, 8.0 [facility] Comment on above: Performed By: #### 4 548-4 #### OMERO KNIGHT ([id number]) [facility] ([facility]) [address] [place] [address] 57082 Protein (U) [Mass/Vol] 20 (TRACE) Normal NEGAT JORGE, 10 (TRACE), 20 (TRACE) [facility] Comment on above: Performed By: #### 4 548-4 #### OMERO KNIGHT ([id number]) [facility] ([facility]) [address] [place] [address] 64260 RBC (U) [#/Vol] Negative Normal NEGATIVE [facility] Comment on above: Performed By: #### 4 548-4 #### OMERO KNIGHT ([id number]) [facility] ([facility]) [address] [place] [address] 22660 RBC Auto (Urine sed) [#/Area] 1-2 Normal NONE, 1-2, 3-5 [facility] Comment on above: Performed By: #### 4 548-4 #### OMERO KNIGHT ([id number]) [facility] ([facility]) [address] [place] [address] 24275 Specific gravity (U) [Rel density] 1.011 Normal 1.005-1.035 [facility] Comment on above: Performed By: #### 4 548-4 #### OMERO KNIGHT ([id number]) [facility] ([facility]) [address] [place] [address] 10577 Urobilinogen (U) [Mass/Vol] Normal Normal Normal [facility] Comment on above: Performed By: #### 4 548-4 #### OMERO KNIGHT ([id number]) [facility] ([facility]) [address] [place] [address] 99833 WBC Auto (Urine sed) [#/Area] 1-5 Normal 1-5, NONE [facility] Comment on above: Performed By: #### 4 548-4 #### OMERO KNIGHT ([id number]) [facility] ([facility]) [address] [place] [address] Vancomycinon 11-13-2023 Vancomycin [Mass/Vol] 17.5 ug/mL 5.0 - 20.0 ug/mL [facility] Vancomycin [Mass/Vol] 17.5 ug/mL Normal 5.0-20.0 [facility] Comment on above: Order Comment: Diagn osis of Diabetes-Adults Non-Diabetic: < or = 5.6% Increased risk for developing diabetes: 5.7-6.4% Diagnostic of diabetes: > or = 6.5% Monitoring of Diabetes Age (y)....................... Therapeutic Goal (%) Adults: >18.........................<7.0 Pediatrics: 13-18...................<7.5 Pediatrics: 7-12....................<8.0 Pediatrics: 0-6..................... 7.5-8.5 [place] [employer]. Diabetes Care 33(S1), Apr 2009 Performed By: #### 4 548-4 #### JAMIL EUGENE ([id number]) [facility] ([facility]) [facility] [place] [address] Vancomycin [Mass/Vol]on Interpretation and review of laboratory results Normal [facility] XR CHEST 1 VIEWon 11-13-2023 XR CHEST 1 VIEW Interpreted By: Bunny Asher and [place] STUDY: XR CHEST 1 VIEW; 11/13/2023 11:11 pm INDICATION: Signs/Symptoms:preop. COMPARISON: CT chest abdomen pelvis 11/06/2023 ACCESSION NUMBER(S): [id number] ORDERING CLINICIAN: UR ORTEGA FINDINGS: AP upright radiograph of the chest was provided. CARDIOMEDIASTINAL SILHOUETTE: Cardiomediastinal silhouette is stable in size and configuration. LUNGS: No evidence of pulmonary edema. Mild retrocardiac atelectasis and tenting of the left basilar pleura. No pneumothorax or pleural effusion. ABDOMEN: No remarkable upper abdominal findings. BONES: No acute osseous abnormality. 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 IMPRESSION: 1. No acute abnormality of the chest. 2. Mild retrocardiac and left basilar atelectasis. I personally reviewed the image(s)/study and resident interpretation as stated by Dr. Tiffanie Healy MD. I agree with the findings as stated. This study was interpreted at [facility], [place], [place]. MACRO: None Signed by: Bunny Asher 11/14/2023 7:48 AM Dictation workstation: [id number] Normal [facility] XR Chest Single viewon 11-12 Radiology Study observation (narrative) [facility] Work Phone: Basic metabolic 2000 panelon 11-12-2023 Anion gap [Moles/Vol] 11 mmol/L 10 - 2 0 mmol/L [facility] Calcium [Mass/Vol] 8.8 mg/dL 8.6 - 10. 6 mg/dL [facility] Chloride [Moles/Vol] 95 mmol/L Low 98 - 10 7 mmol/L [facility] CO2 [Moles/Vol] 34 mmol/L High 21 - 32 mmol/L [facility] Creatinine [Mass/Vol] 0.75 mg/dL 0.50 - 1.05 mg/dL [facility] GFR/1.73 sq M.predicted among non-blacks MDRD (S/P/Bld) [Vol rate/Area] 83 mL/min/{1.73_m2} - PINF [facility] Glucose [Mass/Vol] 118 mg/dL High 74 - 99 mg/dL [facility] Potassium [Moles/Vol] 3.5 mmol/L 3.5 - 5.3 mmol/L [facility] Sodium [Moles/Vol] 136 mmol/L 136 - 145 mmol/L [facility] Urea nitrogen [Mass/Vol] 13 mg/dL 6 - 23 mg/dL [facility] Anion gap [Moles/Vol] 11 mmol/L Normal 10-20 [facility] Comment on above: Performed By: #### 2 132-9 #### OMERO KNIGHT ([id number]) [facility] ([facility]) [address] [place] [address] 24882 Calcium [Mass/Vol] 8.8 mg/dL Normal 8.6-10.6 [facility] Comment on above: Performed By: #### 2 132-9 #### OMERO KNIGHT ([id number]) [facility] ([facility]) [address] [place] [address] 18355 Chloride [Moles/Vol] 95 mmol/L Low 98-107 [facility] Comment on above: Performed By: #### 2 132-9 #### OMERO KNIGHT ([id number]) [facility] ([facility]) [address] [place] [address] 89902 CO2 [Moles/Vol] 34 mmol/L High 21-32 [facility] Comment on above: Performed By: #### 2 132-9 #### OMERO KNIGHT ([id number]) [facility] ([facility]) [address] [place] [address] 46249 Creatinine [Mass/Vol] 0.75 mg/dL Normal 0.50-1.05 [facility] Comment on above: Performed By: #### 2 132-9 #### OMERO KNIGHT ([id number]) [facility] ([facility]) [address] [place] [address] 82692 Glomerular filtration rate/1.73 sq M.predicted 83 mL/min/1.73m*2 Normal >60 [facility] Comment on above: Result Comment: Calc ulations of estimated GFR are performed using the 2020 CKD-EPI Study Refit equation without the race variable for the IDMS-Traceable creatinine methods. https://jasn.asnjournals.org/content/early//ASN.19446 09769 Performed By: #### 2 132-9 #### OMERO KNIGHT ([id number]) [facility] ([facility]) [address] [place] [address] 27508 Glucose [Mass/Vol] 118 mg/dL High 74-99 [facility] Comment on above: Performed By: #### 2 132-9 #### OMERO KNIGHT ([id number]) [facility] ([facility]) [address] [place] [address] 34782 Potassium [Moles/Vol] 3.5 mmol/L Normal 3.5-5.3 [facility] Comment on above: Performed By: #### 2 132-9 #### OMERO KNIGHT ([id number]) [facility] ([facility]) [address] [place] [address] 25456 Sodium [Moles/Vol] 136 mmol/L Normal 136-145 [facility] Comment on above: Performed By: #### 2 132-9 #### OMERO KNIGHT ([id number]) [facility] ([facility]) [address] [place] [address] 53681 Urea nitrogen [Mass/Vol] 13 mg/dL Normal 6-23 [facility] Comment on above: Performed By: #### 2 132-9 #### OMERO KNIGHT ([id number]) [facility] ([facility]) [address] [place] [address] 07371 Blood type and Indirect anti body screen panel (Bld)on 11-12-2023 ABO group Nom (Bld) O [facility] Blood group antibody screen Ql Negative [facility] D Ag Ql (Bld) Positive [facility] ABO group Nom (Bld) O Normal [facility] Comment on above: Performed By: #### 2 132-9 #### OMERO KNIGHT ([id number]) [facility] ([facility]) [address] [place] [address] 59677 Blood group antibody screen Ql Negative [facility] Comment on above: Performed By: #### 2 132-9 #### OMERO KNIGHT ([id number]) [facility] ([facility]) [address] [place] [address] 85912 D Ag Ql (Bld) Positive [facility] Comment on above: Result Comment: 2nd ABO test required. Order and Collect VERAB Performed By: #### 2 132-9 #### JAMIL EUGENE ([id number]) [facility] ([facility]) [address] [place] [address] CBC W Auto Differential pane l (Bld)on 11-12-2023 Basophils (Bld) [#/Vol] 0.05 10*3/uL [facility] Basophils/100 WBC (Bld) 0.7 % 0.0 - 2.0 % [facility] Eosinophils (Bld) [#/Vol] 0.15 10*3/uL [facility] Eosinophils/100 WBC (Bld) 2.1 % 0.0 - 6.0 % [facility] Erythrocyte distribution width (RBC) [Ratio] 15.4 % High 11.5 - 14.5 % [facility] Hematocrit (Bld) [Volume fraction] 33.7 % Low 36.0 - 46.0 % [facility] Hemoglobin (Bld) [Mass/Vol] 10.8 g/dL Low 12.0 - 16.0 g/dL [facility] Immature granulocytes (Bld) [#/Vol] 0.03 10*3/uL [facility] Immature granulocytes/100 WBC (Bld) 0.4 % 0.0 - 0.9 % [facility] Interpretation and review of laboratory results Abnormal [facility] Lymphocytes (Bld) [#/Vol] 3.21 10*3/uL High [facility] Lymphocytes/100 WBC (Bld) 43.9 % 13.0 - 44.0 % [facility] MCH (RBC) [Entitic mass] 26.8 pg 26.0 - 34.0 pg [facility] MCHC (RBC) [Mass/Vol] 32.0 g/dL 32.0 - 36.0 g/dL [facility] MCV (RBC) [Entitic vol] 84 fL 80 - 100 fL [facility] Monocytes (Bld) [#/Vol] 0.66 10*3/uL [facility] Monocytes/100 WBC (Bld) 9.0 % 2.0 - 10.0 % [facility] Neutrophils (Bld) [#/Vol] 3.21 10*3/uL [facility] Neutrophils/100 WBC (Bld) 43.9 % 40.0 - 80.0 % [facility] Nucleated RBC/100 WBC (Bld) [Ratio] 0.0 % [facility] Platelets (Bld) [#/Vol] 223 10*3/uL [facility] RBC (Bld) [#/Vol] 4.03 10*6/uL [facility] WBC (Bld) [#/Vol] 7.3 10*3/uL [facility] Basophils (Bld) [#/Vol] 0.05 x10*3/uL Normal 0.00-0.10 [facility] Comment on above: Performed By: #### 2 132-9 #### OMERO KNIGHT ([id number]) [facility] ([facility]) [address] [place] [address] 83590 Basophils/100 WBC (Bld) 0.7 % Normal 0.0-2.0 [facility] Comment on above: Performed By: #### 2 132-9 #### OMERO KNIGHT ([id number]) [facility] ([facility]) [address] [place] [address] 71218 Eosinophils (Bld) [#/Vol] 0.15 x10*3/uL Normal 0.00-0.40 [facility] Comment on above: Performed By: #### 2 132-9 #### OMERO KNIGHT ([id number]) [facility] ([facility]) [address] [place] [address] 27112 Eosinophils/100 WBC (Bld) 2.1 % Normal 0.0-6.0 [facility] Comment on above: Performed By: #### 2 132-9 #### OMERO KNIGHT ([id number]) [facility] ([facility]) [address] [place] [address] 19498 Erythrocyte distribution width (RBC) [Ratio] 15.4 % High 11.5-14.5 [facility] Comment on above: Performed By: #### 2 132-9 #### OMERO KNIGHT ([id number]) [facility] ([facility]) [address] [place] [address] 61230 Hematocrit (Bld) [Volume fraction] 33.7 % Low 36.0-46.0 [facility] Comment on above: Performed By: #### 2 132-9 #### OMERO KNIGHT ([id number]) [facility] ([facility]) [address] [place] [address] 91176 Hemoglobin (Bld) [Mass/Vol] 10.8 g/dL Low 12.0-16.0 [facility] Comment on above: Performed By: #### 2 132-9 #### OMERO KNIGHT ([id number]) [facility] ([facility]) [address] [place] [address] 82706 Immature granulocytes (Bld) [#/Vol] 0.03 x10*3/uL Normal 0.00-0.50 [facility] Comment on above: Performed By: #### 2 132-9 #### OMERO KNIGHT ([id number]) [facility] ([facility]) [address] [place] [address] 15514 Immature granulocytes/100 WBC (Bld) 0.4 % Normal 0.0-0.9 [facility] Comment on above: Result Comment: Martina ture Granulocyte Count (IG) includes promyelocytes, myelocytes and metamyelocytes but does not include bands. Percent differential counts (%) should be interpreted in the context of the absolute cell counts (cells/UL). Performed By: #### 2 132-9 #### OMERO KNIGHT ([id number]) [facility] ([facility]) [address] [place] [address] 08140 Lymphocytes (Bld) [#/Vol] 3.21 x10*3/uL High 0.80-3.00 [facility] Comment on above: Performed By: #### 2 132-9 #### OMERO KNIGHT ([id number]) [facility] ([facility]) [address] [place] [address] 55501 Lymphocytes/100 WBC (Bld) 43.9 % Normal 13.0-44.0 [facility] Comment on above: Performed By: #### 2 132-9 #### OMERO KNIGHT ([id number]) [facility] ([facility]) [address] [place] [address] 26491 MCH (RBC) [Entitic mass] 26.8 pg Normal 26.0-34.0 [facility] Comment on above: Performed By: #### 2 132-9 #### OMERO KNIGHT ([id number]) [facility] ([facility]) [address] [place] [address] 62519 MCHC (RBC) [Mass/Vol] 32.0 g/dL Normal 32.0-36.0 [facility] Comment on above: Performed By: #### 2 132-9 #### OMERO KNIGHT ([id number]) [facility] ([facility]) [address] [place] [address] 93694 MCV (RBC) [Entitic vol] 84 fL Normal 80-100 [facility] Comment on above: Performed By: #### 2 132-9 #### OMERO KNIGHT ([id number]) [facility] ([facility]) [address] [place] [address] 23351 Monocytes (Bld) [#/Vol] 0.66 x10*3/uL Normal 0.05-0.80 [facility] Comment on above: Performed By: #### 2 132-9 #### OMERO KNIGHT ([id number]) [facility] ([facility]) [address] [place] [address] 20335 Monocytes/100 WBC (Bld) 9.0 % Normal 2.0-10.0 [facility] Comment on above: Performed By: #### 2 132-9 #### OMERO KNIGHT ([id number]) [facility] ([facility]) [address] [place] [address] 70831 Neutrophils (Bld) [#/Vol] 3.21 x10*3/uL Normal 1.60-5.50 [facility] Comment on above: Result Comment: Perc ent differential counts (%) should be interpreted in the context of the absolute cell counts (cells/uL). Performed By: #### 2 132-9 #### OMERO KNIGHT ([id number]) [facility] ([facility]) [address] [place] [address] 47696 Neutrophils/100 WBC (Bld) 43.9 % Normal 40.0-80.0 [facility] Comment on above: Performed By: #### 2 132-9 #### OMERO KNIGHT ([id number]) [facility] ([facility]) [address] [place] [address] 64059 Nucleated RBC/100 WBC (Bld) [Ratio] 0.0 /100 WBCs Normal 0.0-0.0 [facility] Comment on above: Performed By: #### 2 132-9 #### OMERO KNIGHT ([id number]) [facility] ([facility]) [address] [place] [address] 57075 Platelets (Bld) [#/Vol] 223 x10*3/uL Normal 150-450 [facility] Comment on above: Performed By: #### 2 132-9 #### OMERO KNIGHT ([id number]) [facility] ([facility]) [address] [place] [address] 05353 RBC (Bld) [#/Vol] 4.03 x10*6/uL Normal 4.00-5.20 [facility] Comment on above: Performed By: #### 2 132-9 #### OMERO KNIGHT ([id number]) [facility] ([facility]) [address] [place] [address] 49444 WBC (Bld) [#/Vol] 7.3 x10*3/uL Normal 4.4-11.3 [facility] Comment on above: Performed By: #### 2 132-9 #### OMERO KNIGHT ([id number]) [facility] ([facility]) [address] [place] [address] 81081 Glucose Test strip manual (B ld) [Mass/Vol]on 11-12-2023 Glucose [Mass/Vol] 110 mg/dL High 74 - 99 mg/dL [facility] Interpretation and review of laboratory results Abnormal [facility] Glucose [Mass/Vol] 110 mg/dL High 74-99 [facility] Comment on above: Performed By: #### 4 548-4 #### OMERO KNIGHT ([id number]) [facility] ([facility]) [address] [place] [address] 26602 Glucose [Mass/Vol] 141 mg/dL High 74 - 99 mg/dL [facility] Interpretation and review of laboratory results Abnormal [facility] Glucose [Mass/Vol] 141 mg/dL High 74-99 [facility] Comment on above: Performed By: #### 4 548-4 #### OMERO KNIGHT ([id number]) [facility] ([facility]) [address] [place] [address] 25385 Glucose [Mass/Vol] 127 mg/dL High 74 - 99 mg/dL [facility] Interpretation and review of laboratory results Abnormal [facility] Glucose [Mass/Vol] 127 mg/dL High 74-99 [facility] Comment on above: Performed By: #### 2 132-9 #### OMERO KNIGHT ([id number]) [facility] ([facility]) [address] [place] [address] 17563 Glucose [Mass/Vol] 133 mg/dL High 74 - 99 mg/dL [facility] Interpretation and review of laboratory results Abnormal [facility] Glucose [Mass/Vol] 133 mg/dL High 74-99 [facility] Comment on above: Performed By: #### 2 132-9 #### OMERO KNIGHT ([id number]) [facility] ([facility]) [address] [place] [address] 26201 Hepatic function 2000 panelo n 11-12-2023 Albumin BCP dye [Mass/Vol] 2.8 g/dL Low 3.4 - 5.0 g/dL [facility] ALP [Catalytic activity/Vol] 143 U/L High 33 - 136 U/L [facility] ALT With P-5'-P [Catalytic activity/Vol] 8 U/L 7 - 45 U/L [facility] AST With P-5'-P [Catalytic activity/Vol] 17 U/L 9 - 39 U/L [facility] Bilirubin [Mass/Vol] 0.3 mg/dL 0.0 - 1 .2 mg/dL [facility] Bilirubin.direct [Mass/Vol] 0.1 mg/dL 0.0 - 0.3 mg/dL [facility] Protein [Mass/Vol] 6.0 g/dL Low 6.4 - 8.2 g/dL [facility] Albumin BCP dye [Mass/Vol] 2.8 g/dL Low 3.4-5.0 [facility] Comment on above: Performed By: #### 2 132-9 #### OMERO KNIGHT ([id number]) [facility] ([facility]) [address] [place] [address] 30043 ALP [Catalytic activity/Vol] 143 U/L High 33-136 [facility] Comment on above: Performed By: #### 2 132-9 #### OMERO KNIGHT ([id number]) [facility] ([facility]) [address] [place] [address] 56301 ALT With P-5'-P [Catalytic activity/Vol] 8 U/L Normal 7-45 [facility] Comment on above: Result Comment: Madhavi ents treated with Sulfasalazine may generate falsely decreased results for ALT. Performed By: #### 2 132-9 #### OMERO KNIGHT ([id number]) [facility] ([facility]) [address] [place] [address] 27080 AST With P-5'-P [Catalytic activity/Vol] 17 U/L Normal 9-39 [facility] Comment on above: Performed By: #### 2 132-9 #### OMERO KNIGHT ([id number]) [facility] ([facility]) [address] [place] [address] 11298 Bilirubin [Mass/Vol] 0.3 mg/dL Normal 0.0-1.2 [facility] Comment on above: Performed By: #### 2 132-9 #### OMERO KNIGHT ([id number]) [facility] ([facility]) [address] [place] [address] 88761 Bilirubin.direct [Mass/Vol] 0.1 mg/dL Normal 0.0-0.3 [facility] Comment on above: Performed By: #### 2 132-9 #### OMERO KNIGHT ([id number]) [facility] ([facility]) [facility] [place] [id number] Protein [Mass/Vol] 6.0 g/dL Low 6.4-8.2 [facility] Comment on above: Performed By: #### 2 132-9 #### OMERO KNIGHT ([id number]) [facility] ([facility]) [address] [place] [address] 91724 Magnesiumon 11-12-2023 Magnesium [Mass/Vol] 1.85 mg/dL 1.60 - 2.40 mg/dL [facility] Magnesium [Mass/Vol] 1.85 mg/dL Normal 1.60-2.40 [facility] Comment on above: Performed By: #### 2 132-9 #### OMERO KNIGHT ([id number]) [facility] ([facility]) [address] [place] [address] No Panel Informationon 11-11 Interpretation and review of laboratory results Abnormal [facility] Interpretation and review of laboratory results Normal [facility] PT and aPTT panel Coag (PPP) on 11-12-2023 aPTT Coag (PPP) [Time] [address] s [address] [facility] INR Coag (PPP) [Relative time] 1.1 {INR} 0.9 - 1.1 [facility] Interpretation and review of laboratory results Normal [facility] PT Coag (PPP) [Time] 12.5 s [facility] aPTT Coag (PPP) [Time] 34 s Normal 27-38 [facility] Comment on above: Order Comment: The A PTT is no longer used for monitoring Unfractionated Heparin Therapy. For monitoring Heparin Therapy, use the Heparin Assay. Performed By: #### 2 132-9 #### OMERO KNIGHT ([id number]) [facility] ([facility]) [address] [place], [place] [id number] INR Coag (PPP) [Relative time] 1.1 Normal 0.9-1.1 [facility] Comment on above: Order Comment: The A PTT is no longer used for monitoring Unfractionated Heparin Therapy. For monitoring Heparin Therapy, use the Heparin Assay. Performed By: #### 2 132-9 #### OMERO KNIGHT ([id number]) [facility] ([facility]) [facility] [place] [address] PT Coag (PPP) [Time] 12.5 s Normal 9.8-12.8 [facility] Comment on above: Order Comment: The A PTT is no longer used for monitoring Unfractionated Heparin Therapy. For monitoring Heparin Therapy, use the Heparin Assay. Performed By: #### 2 132-9 #### OMERO KNIGHT ([id number]) [facility] ([facility]) [facility] [place] [address] Phosphateon 11-12-2023 Phosphate [Mass/Vol] 2.5 mg/dL Normal 2.5-4.9 [facility] Comment on above: Result Comment: The performance characteristics of phosphorus testing in heparinized plasma have been validated by the individual laboratory site where testing is performed. Testing on heparinized plasma is not approved by the FDA; however, such approval is not necessary. Performed By: #### 2 132-9 #### OMERO KNIGHT ([id number]) [facility] ([facility]) [facility] [place] [address] Phosphoruson 11-12-2023 Phosphate [Mass/Vol] 2.5 mg/dL 2.5 - 4 .9 mg/dL [facility] CBC W Auto Differential pane l (Bld)on 11-11-2023 Basophils (Bld) [#/Vol] 0.03 10*3/uL [facility] Basophils/100 WBC (Bld) 0.5 % 0.0 - 2.0 % [facility] Eosinophils (Bld) [#/Vol] 0.15 10*3/uL [facility] Eosinophils/100 WBC (Bld) 2.3 % 0.0 - 6.0 % [facility] Erythrocyte distribution width (RBC) [Ratio] 15.4 % High 11.5 - 14.5 % [facility] Hematocrit (Bld) [Volume fraction] 33.4 % Low 36.0 - 46.0 % [facility] Hemoglobin (Bld) [Mass/Vol] 10.6 g/dL Low 12.0 - 16.0 g/dL [facility] Immature granulocytes (Bld) [#/Vol] 0.02 10*3/uL [facility] Immature granulocytes/100 WBC (Bld) 0.3 % 0.0 - 0.9 % [facility] Interpretation and review of laboratory results Abnormal [facility] Lymphocytes (Bld) [#/Vol] 2.41 10*3/uL [facility] Lymphocytes/100 WBC (Bld) 37.4 % 13.0 - 44.0 % [facility] MCH (RBC) [Entitic mass] 26.6 pg 26.0 - 34.0 pg [facility] MCHC (RBC) [Mass/Vol] 31.7 g/dL Low 32.0 - 36.0 g/dL [facility] MCV (RBC) [Entitic vol] 84 fL 80 - 100 fL [facility] Monocytes (Bld) [#/Vol] 0.56 10*3/uL [facility] Monocytes/100 WBC (Bld) 8.7 % 2.0 - 10.0 % [facility] Neutrophils (Bld) [#/Vol] 3.28 10*3/uL [facility] Neutrophils/100 WBC (Bld) 50.8 % 40.0 - 80.0 % [facility] Nucleated RBC/100 WBC (Bld) [Ratio] 0.0 % [facility] Platelets (Bld) [#/Vol] 219 10*3/uL [facility] RBC (Bld) [#/Vol] 3.98 10*6/uL [facility] WBC (Bld) [#/Vol] 6.5 10*3/uL [facility] Basophils (Bld) [#/Vol] 0.03 x10*3/uL Normal 0.00-0.10 [facility] Comment on above: Performed By: #### 2 4331-1 #### JAMIL EUGENE ([id number]) [facility] ([facility]) [address] [place] [address] 09962 Basophils/100 WBC (Bld) 0.5 % Normal 0.0-2.0 [facility] Comment on above: Performed By: #### 2 4331-1 #### OMERO KNIGHT ([id number]) [facility] ([facility]) [address] [place] [address] 97387 Eosinophils (Bld) [#/Vol] 0.15 x10*3/uL Normal 0.00-0.40 [facility] Comment on above: Performed By: #### 2 4331-1 #### OMERO KNIGHT ([id number]) [facility] ([facility]) [address] [place] [address] 30886 Eosinophils/100 WBC (Bld) 2.3 % Normal 0.0-6.0 [facility] Comment on above: Performed By: #### 2 4331-1 #### OMERO KNIGHT ([id number]) [facility] ([facility]) [address] [place] [address] 57498 Erythrocyte distribution width (RBC) [Ratio] 15.4 % High 11.5-14.5 [facility] Comment on above: Performed By: #### 2 4331-1 #### OMERO KNIGHT ([id number]) [facility] ([facility]) [address] [place] [address] 91261 Hematocrit (Bld) [Volume fraction] 33.4 % Low 36.0-46.0 [facility] Comment on above: Performed By: #### 2 4331-1 #### OMERO KNIGHT ([id number]) [facility] ([facility]) [address] [place] [address] 45382 Hemoglobin (Bld) [Mass/Vol] 10.6 g/dL Low 12.0-16.0 [facility] Comment on above: Performed By: #### 2 4331-1 #### OMERO KNIGHT ([id number]) [facility] ([facility]) [address] [place] [address] 76918 Immature granulocytes (Bld) [#/Vol] 0.02 x10*3/uL Normal 0.00-0.50 [facility] Comment on above: Performed By: #### 2 4331-1 #### OMERO KNIGHT ([id number]) [facility] ([facility]) [facility] [place] [address] Immature granulocytes/100 WBC (Bld) 0.3 % Normal 0.0-0.9 [facility] Comment on above: Result Comment: Martina ture Granulocyte Count (IG) includes promyelocytes, myelocytes and metamyelocytes but does not include bands. Percent differential counts (%) should be interpreted in the context of the absolute cell counts (cells/UL). Performed By: #### 2 4331-1 #### OMERO KNIGHT ([id number]) [facility] ([facility]) [address] [place] [address] 77211 Lymphocytes (Bld) [#/Vol] 2.41 x10*3/uL Normal 0.80-3.00 [facility] Comment on above: Performed By: #### 2 4331-1 #### OMERO KNIGHT ([id number]) [facility] ([facility]) [address] [place] [address] 55489 Lymphocytes/100 WBC (Bld) 37.4 % Normal 13.0-44.0 [facility] Comment on above: Performed By: #### 2 4331-1 #### OMERO KNIGHT ([id number]) [facility] ([facility]) [address] [place] [address] 44868 MCH (RBC) [Entitic mass] 26.6 pg Normal 26.0-34.0 [facility] Comment on above: Performed By: #### 2 4331-1 #### OMERO KNIGHT ([id number]) [facility] ([facility]) [address] [place] [address] 31778 MCHC (RBC) [Mass/Vol] 31.7 g/dL Low 32.0-36.0 [facility] Comment on above: Performed By: #### 2 4331-1 #### OMERO KNIGHT ([id number]) [facility] ([facility]) [address] [place] [address] 66060 MCV (RBC) [Entitic vol] 84 fL Normal 80-100 [facility] Comment on above: Performed By: #### 2 4331-1 #### OMERO KNIGHT ([id number]) [facility] ([facility]) [address] [place] [address] 23655 Monocytes (Bld) [#/Vol] 0.56 x10*3/uL Normal 0.05-0.80 [facility] Comment on above: Performed By: #### 2 4331-1 #### OMERO KNIGHT ([id number]) [facility] ([facility]) [address] [place] [address] 77414 Monocytes/100 WBC (Bld) 8.7 % Normal 2.0-10.0 [facility] Comment on above: Performed By: #### 2 4331-1 #### OMERO KNIGHT ([id number]) [facility] ([facility]) [address] [place] [address] 36018 Neutrophils (Bld) [#/Vol] 3.28 x10*3/uL Normal 1.60-5.50 [facility] Comment on above: Result Comment: Perc ent differential counts (%) should be interpreted in the context of the absolute cell counts (cells/uL). Performed By: #### 2 4331-1 #### OMERO KNIGHT ([id number]) [facility] ([facility]) [address] [place] [address] 63006 Neutrophils/100 WBC (Bld) 50.8 % Normal 40.0-80.0 [facility] Comment on above: Performed By: #### 2 4331-1 #### OMERO KNIGHT ([id number]) [facility] ([facility]) [address] [place] [address] 58059 Nucleated RBC/100 WBC (Bld) [Ratio] 0.0 /100 WBCs Normal 0.0-0.0 [facility] Comment on above: Performed By: #### 2 4331-1 #### OMERO KNIGHT ([id number]) [facility] ([facility]) [address] [place] [address] 10956 Platelets (Bld) [#/Vol] 219 x10*3/uL Normal 150-450 [facility] Comment on above: Performed By: #### 2 4331-1 #### OMERO KNIGHT ([id number]) [facility] ([facility]) [address] [place] [address] 06088 RBC (Bld) [#/Vol] 3.98 x10*6/uL Low 4.00-5.20 [facility] Comment on above: Performed By: #### 2 4331-1 #### OMEOR KNIGHT ([id number]) [facility] ([facility]) [address] [place] [address] 04885 WBC (Bld) [#/Vol] 6.5 x10*3/uL Normal 4.4-11.3 [facility] Comment on above: Performed By: #### 2 4331-1 #### OMERO KNIGHT ([id number]) [facility] ([facility]) [address] [place] [address] 65353 Glucose Test strip manual (B ld) [Mass/Vol]on 11-11-2023 Glucose [Mass/Vol] 132 mg/dL High 74 - 99 mg/dL [facility] Interpretation and review of laboratory results Abnormal [facility] Glucose [Mass/Vol] 132 mg/dL High 74-99 [facility] Comment on above: Performed By: #### 2 132-9 #### OMERO KNIGHT ([id number]) [facility] ([facility]) [address] [place] [address] 62738 Glucose [Mass/Vol] 139 mg/dL High 74 - 99 mg/dL [facility] Interpretation and review of laboratory results Abnormal [facility] Glucose [Mass/Vol] 139 mg/dL High 74-99 [facility] Comment on above: Performed By: #### 2 4331-1 #### OEMRO KNIGHT ([id number]) [facility] ([facility]) [address] [place] [address] 19945 Glucose [Mass/Vol] 164 mg/dL High 74 - 99 mg/dL [facility] Interpretation and review of laboratory results Abnormal [facility] Glucose [Mass/Vol] 164 mg/dL High 74-99 [facility] Comment on above: Performed By: #### 2 4331-1 #### OMERO KNIGHT ([id number]) [facility] ([facility]) [address] [place] [address] Glucose [Mass/Vol] 119 mg/dL High 74 - 99 mg/dL [facility] Interpretation and review of laboratory results Abnormal [facility] Glucose [Mass/Vol] 119 mg/dL High 74-99 [facility] Comment on above: Performed By: #### 2 4331-1 #### OMERO KNIGHT ([id number]) [facility] ([facility]) [address] [place] [address] Magnesiumon 11-11-2023 Magnesium [Mass/Vol] 2.22 mg/dL 1.60 - 2.40 mg/dL [facility] Magnesium [Mass/Vol] 2.22 mg/dL Normal 1.60-2.40 [facility] Comment on above: Performed By: #### 2 4331-1 #### OMERO KNIGHT ([id number]) [facility] ([facility]) [address] [place] [address] Magnesium [Mass/Vol] 1.41 mg/dL Low 1.60 - 2.40 mg/dL [facility] Magnesium [Mass/Vol] 1.41 mg/dL Low 1.60-2.40 [facility] Comment on above: Performed By: #### 2 4331-1 #### OMERO KNIGHT ([id number]) [facility] ([facility]) [address] [place] [address] 77356 Magnesium [Mass/Vol]on 11-10 Interpretation and review of laboratory results Normal [facility] No Panel Informationon 11-10 [facility] Interpretation and review of laboratory results Abnormal [facility] Renal function 2000 panelon 11-11-2023 Albumin BCP dye [Mass/Vol] 2.6 g/dL Low 3.4 - 5.0 g/dL [facility] Anion gap [Moles/Vol] 10 mmol/L 10 - 2 0 mmol/L [facility] Calcium [Mass/Vol] 8.3 mg/dL Low 8.6 - 10. 6 mg/dL [facility] [facility] Ch[facility] [Moles/Vol] 93 mmol/L Low 98 - 10 7 mmol/L [facility] CO2 [Moles/Vol] 35 mmol/L High 21 - 32 mmol/L [facility] Creatinine [Mass/Vol] 0.79 mg/dL 0.50 - 1.05 mg/dL [facility] GFR/1.73 sq M.predicted among non-blacks MDRD (S/P/Bld) [Vol rate/Area] 78 mL/min/{1.73_m2} - PINF [facility] Glucose [Mass/Vol] 166 mg/dL High 74 - 99 mg/dL [facility] Interpretation and review of laboratory results Abnormal [facility] Phosphate [Mass/Vol] 2.0 mg/dL Low 2.5 - 4 .9 mg/dL [facility] Potassium [Moles/Vol] 4.1 mmol/L 3.5 - 5.3 mmol/L [facility] Sodium [Moles/Vol] 134 mmol/L Low 136 - 145 mmol/L [facility] Urea nitrogen [Mass/Vol] 14 mg/dL 6 - 23 mg/dL [facility] Albumin BCP dye [Mass/Vol] 2.6 g/dL Low 3.4-5.0 [facility] Comment on above: Performed By: #### 2 4331-1 #### OMERO KNIGHT ([id number]) [facility] ([facility]) [address] [place] [address] 64929 Anion gap [Moles/Vol] 10 mmol/L Normal 10-20 [facility] Comment on above: Performed By: #### 2 4331-1 #### OMERO KNIGHT ([id number]) [facility] ([facility]) [address] [place] [address] 44061 Calcium [Mass/Vol] 8.3 mg/dL Low 8.6-10.6 [facility] Comment on above: Performed By: #### 2 4331-1 #### OMERO KNIGHT ([id number]) [facility] ([facility]) [address] [place] [address] 95830 Chloride [Moles/Vol] 93 mmol/L Low 98-107 [facility] Comment on above: Performed By: #### 2 4331-1 #### OMERO KNIGHT ([id number]) [facility] ([facility]) [address] [place] [address] CO2 [Moles/Vol] 35 mmol/L High 21-32 [facility] Comment on above: Performed By: #### 2 4331-1 #### OMERO KNIGHT ([id number]) [facility] ([facility]) [address] [place] [address] Creatinine [Mass/Vol] 0.79 mg/dL Normal 0.50-1.05 [facility] [place] [facility] Comment on above: Performed By: #### 2 4331-1 #### OMERO KNIGHT ([id number]) [facility] ([facility]) [address] [place] [address] 61040 Glomerular filtration rate/1.73 sq M.predicted 78 mL/min/1.73m*2 Normal >60 [facility] Comment on above: Result Comment: Calc ulations of estimated GFR are performed using the 2020 CKD-EPI Study Refit equation without the race variable for the IDMS-Traceable creatinine methods. https://jasn.asnjournals.org/content/early//ASN.40949 07701 Performed By: #### 2 4331-1 #### OMERO KNIGHT ([id number]) [facility] ([facility]) [address] [place] [address] 86944 Glucose [Mass/Vol] 166 mg/dL High 74-99 [facility] Comment on above: Performed By: #### 2 4331-1 #### OMERO KNIGHT ([id number]) [facility] ([facility]) [address] [place] [address] 48389 Phosphate [Mass/Vol] 2.0 mg/dL Low 2.5-4.9 [facility] Comment on above: Result Comment: The performance characteristics of phosphorus testing in heparinized plasma have been validated by the individual laboratory site where testing is performed. Testing on heparinized plasma is not approved by the FDA; however, such approval is not necessary. Performed By: #### 2 4331-1 #### OMERO KNIGHT ([id number]) [facility] ([facility]) [facility] [place] [address] Potassium [Moles/Vol] 4.1 mmol/L Normal 3.5-5.3 [facility] [place] [facility] Comment on above: Performed By: #### 2 4331-1 #### OMERO KNIGHT ([id number]) [facility] ([facility]) [facility] [place] [address] Sodium [Moles/Vol] 134 mmol/L Low 136-145 [facility] Comment on above: Performed By: #### 2 4331-1 #### OMERO KNIGHT ([id number]) [facility] ([facility]) [address] [place] [address] 88328 Urea nitrogen [Mass/Vol] 14 mg/dL Normal 6-23 [facility] Comment on above: Performed By: #### 2 4331-1 #### OMERO KNIGHT ([id number]) [facility] ([facility]) [facility] [place] [address] Albumin BCP dye [Mass/Vol] 2.6 g/dL Low 3.4 - 5.0 g/dL [facility] Anion gap [Moles/Vol] 10 mmol/L 10 - 2 0 mmol/L [facility] Calcium [Mass/Vol] 8.6 mg/dL 8.6 - 10. 6 mg/dL [facility] Chloride [Moles/Vol] 95 mmol/L Low 98 - 10 7 mmol/L [facility] CO2 [Moles/Vol] 33 mmol/L High 21 - 32 mmol/L [facility] Creatinine [Mass/Vol] 0.80 mg/dL 0.50 - 1.05 mg/dL [facility] GFR/1.73 sq M.predicted among non-blacks MDRD (S/P/Bld) [Vol rate/Area] 77 mL/min/{1.73_m2} - PINF [facility] Glucose [Mass/Vol] 139 mg/dL High 74 - 99 mg/dL [facility] Phosphate [Mass/Vol] 2.7 mg/dL 2.5 - 4 .9 mg/dL [facility] Potassium [Moles/Vol] 3.0 mmol/L Low 3.5 - 5.3 mmol/L [facility] Sodium [Moles/Vol] 135 mmol/L Low 136 - 145 mmol/L [facility] Urea nitrogen [Mass/Vol] 15 mg/dL 6 - 23 mg/dL [facility] Albumin BCP dye [Mass/Vol] 2.6 g/dL Low 3.4-5.0 [facility] Comment on above: Performed By: #### 2 4331-1 #### OMERO KNIGHT ([id number]) [facility] ([facility]) [address] [place] [address] 57905 Anion gap [Moles/Vol] 10 mmol/L Normal 10-20 [facility] [place] [facility] Comment on above: Performed By: #### 2 4331-1 #### OMERO KNIGHT ([id number]) [facility] ([facility]) [address] [place] [address] 61931 Calcium [Mass/Vol] 8.6 mg/dL Normal 8.6-10.6 [facility] Comment on above: Performed By: #### 2 4331-1 #### OMERO KNIGHT ([id number]) [facility] ([facility]) [facility] [place] [address] Chloride [Moles/Vol] 95 mmol/L Low 98-107 [facility] Comment on above: Performed By: #### 2 4331-1 #### OMERO KINGHT ([id number]) [facility] ([facility]) [facility] [place] [address] CO2 [Moles/Vol] 33 mmol/L High 21-32 [facility] Comment on above: Performed By: #### 2 4331-1 #### OMERO KNIGHT ([id number]) [facility] ([facility]) [address] [place] [address] 37452 Creatinine [Mass/Vol] 0.80 mg/dL Normal 0.50-1.05 [facility] [place] [facility] Comment on above: Performed By: #### 2 4331-1 #### OMERO KNIGHT ([id number]) [facility] ([facility]) [address] [place] [address] 66107 Glomerular filtration rate/1.73 sq M.predicted 77 mL/min/1.73m*2 Normal >60 [facility] Comment on above: Result Comment: Calc ulations of estimated GFR are performed using the 2020 CKD-EPI Study Refit equation without the race variable for the IDMS-Traceable creatinine methods. https://jasn.asnjournals.org/content/early//ASN.80084 39794 Performed By: #### 2 4331-1 #### OMERO KNIGHT ([id number]) [facility] ([facility]) [address] [place] [address] 75696 Glucose [Mass/Vol] 139 mg/dL High 74-99 [facility] Comment on above: Performed By: #### 2 4331-1 #### OMERO KNIGHT ([id number]) [facility] ([facility]) [address] [place] [address] 97499 Phosphate [Mass/Vol] 2.7 mg/dL Normal 2.5-4.9 [facility] Comment on above: Result Comment: The performance characteristics of phosphorus testing in heparinized plasma have been validated by the individual laboratory site where testing is performed. Testing on heparinized plasma is not approved by the FDA; however, such approval is not necessary. Performed By: #### 2 4331-1 #### OMERO KNIGHT ([id number]) [facility] ([facility]) [address] [place] [address] 90291 Potassium [Moles/Vol] 3.0 mmol/L Low 3.5-5.3 [facility] [place] [facility] Comment on above: Performed By: #### 2 4331-1 #### OMERO KNIGHT ([id number]) [facility] ([facility]) [address] [place] [address] 08928 Sodium [Moles/Vol] 135 mmol/L Low 136-145 [facility] Comment on above: Performed By: #### 2 4331-1 #### OMERO KNIGHT ([id number]) [facility] ([facility]) [address] [place] [address] 80532 Urea nitrogen [Mass/Vol] 15 mg/dL Normal 6-23 [facility] Comment on above: Performed By: #### 2 4331-1 #### OMERO KNIGHT ([id number]) [facility] ([facility]) [address] [place] [address] 89243 Glucose Test strip manual (B ld) [Mass/Vol]on 11-10-2023 Glucose [Mass/Vol] 142 mg/dL High 74 - 99 mg/dL [facility] Interpretation and review of laboratory results Abnormal [facility] Glucose [Mass/Vol] 142 mg/dL High 74-99 [facility] Comment on above: Performed By: #### 2 4331-1 #### OMERO KNIGHT ([id number]) [facility] ([facility]) [address] [place] [address] 79583 Glucose [Mass/Vol] 116 mg/dL High 74 - 99 mg/dL [facility] Interpretation and review of laboratory results Abnormal [facility] Glucose [Mass/Vol] 116 mg/dL High 74-99 [facility] Comment on above: Performed By: #### 2 4331-1 #### OMERO KNIGHT ([id number]) [facility] ([facility]) [address] [place] [address] 97955 Glucose [Mass/Vol] 159 mg/dL High 74 - 99 mg/dL [facility] Interpretation and review of laboratory results Abnormal [facility] Glucose [Mass/Vol] 159 mg/dL High 74-99 [facility] Comment on above: Performed By: #### 2 4323-8 #### OMERO KNIGHT ([id number]) [facility] ([facility]) [address] [place] [address] 94985 Glucose [Mass/Vol] 170 mg/dL High 74 - 99 mg/dL [facility] Interpretation and review of laboratory results Abnormal [facility] Glucose [Mass/Vol] 170 mg/dL High 74-99 [facility] Comment on above: Performed By: #### 2 4323-8 #### OMERO KNIGHT ([id number]) [facility] ([facility]) [address] [place] [address] 03295 Glucose [Mass/Vol] 132 mg/dL High 74 - 99 mg/dL [facility] Interpretation and review of laboratory results Abnormal [facility] Glucose [Mass/Vol] 132 mg/dL High 74-99 [facility] Comment on above: Performed By: #### 2 4323-8 #### OMERO KNIGHT ([id number]) [facility] ([facility]) [address] [place] [address] Vancomycinon 11-10-2023 Vancomycin [Mass/Vol] 17.6 ug/mL 5.0 - 20.0 ug/mL [facility] Vancomycin [Mass/Vol] 17.6 ug/mL Normal 5.0-20.0 [facility] [place] [facility] Comment on above: Order Comment: Vanco mycin levels can be monitored according to area under the curve (AUC) or concentration (ug/mL). The preferred monitoring strategy is determined by the patient's renal function and indication for therapy.For AUC monitoring, a random vancomycin level should be interpreted in the context of AUC rather than the concentration at a single point in time.For concentration monitoring, a trough concentration drawn immediately prior to the next dose is preferred.Therapeutic ranges using concentration-guided results:Peak (all ages): 30.0-40.0 ug/mLTrough (all ages): 10.0-20.0 ug/mL Performed By: #### 2 4323-8 #### OMERO KNIGHT ([id number]) [facility] ([facility]) [address] [place], [place] [address] Vancomycin [Mass/Vol]on Interpretation and review of laboratory results Normal [facility] Bacteria identifiedon 2023 Bacteria identified Cx Nom (Bld) Test: Blood Culture Specimen Source: Peripheral Venipuncture Specimen Type: Blood culture Specimen Date: 11/09/2023 1110 Result Date: 11/13/2023 1300 Result Status: Final result Abnormal: No Resulting Lab: [facility] [id number] [place] [id number] CULTURE No growth at 4 days - FINAL REPORT Normal [facility] Comment on above: Performed By: #### 2 4323-8 #### JAMIL EUGENE ([id number]) [facility] ([facility]) [address] [id number] CBC W Auto Differential pane l (Bld)on 11-09-2023 Basophils (Bld) [#/Vol] 0.05 10*3/uL [facility] Basophils/100 WBC (Bld) 0.6 % 0.0 - 2.0 % [facility] Eosinophils (Bld) [#/Vol] 0.16 10*3/uL [facility] Eosinophils/100 WBC (Bld) 1.8 % 0.0 - 6.0 % [facility] Erythrocyte distribution width (RBC) [Ratio] 15.2 % High 11.5 - 14.5 % [facility] Hematocrit (Bld) [Volume fraction] 34.5 % Low 36.0 - 46.0 % [facility] Hemoglobin (Bld) [Mass/Vol] 10.8 g/dL Low 12.0 - 16.0 g/dL [facility] Immature granulocytes (Bld) [#/Vol] 0.05 10*3/uL [facility] Immature granulocytes/100 WBC (Bld) 0.6 % 0.0 - 0.9 % [facility] Interpretation and review of laboratory results Abnormal [facility] Lymphocytes (Bld) [#/Vol] 3.08 10*3/uL High [facility] Lymphocytes/100 WBC (Bld) 34.8 % 13.0 - 44.0 % [facility] MCH (RBC) [Entitic mass] 26.5 pg 26.0 - 34.0 pg [facility] MCHC (RBC) [Mass/Vol] 31.3 g/dL Low 32.0 - 36.0 g/dL [facility] MCV (RBC) [Entitic vol] 85 fL 80 - 100 fL [facility] Monocytes (Bld) [#/Vol] 0.67 10*3/uL [facility] Monocytes/100 WBC (Bld) 7.6 % 2.0 - 10.0 % [facility] Neutrophils (Bld) [#/Vol] 4.83 10*3/uL [facility] Neutrophils/100 WBC (Bld) 54.6 % 40.0 - 80.0 % [facility] Nucleated RBC/100 WBC (Bld) [Ratio] 0.0 % [facility] Platelets (Bld) [#/Vol] 263 10*3/uL [facility] RBC (Bld) [#/Vol] 4.08 10*6/uL [facility] WBC (Bld) [#/Vol] 8.8 10*3/uL [facility] Basophils (Bld) [#/Vol] 0.05 x10*3/uL Normal 0.00-0.10 [facility] Comment on above: Performed By: #### 1 9123-9 #### OMERO KNIGHT ([id number]) [facility] ([facility]) [address] [place] [address] 61838 Basophils/100 WBC (Bld) 0.6 % Normal 0.0-2.0 [facility] Comment on above: Performed By: #### 1 9123-9 #### OMERO KNIGHT ([id number]) [facility] ([facility]) [address] [place] [address] 07587 Eosinophils (Bld) [#/Vol] 0.16 x10*3/uL Normal 0.00-0.40 [facility] Comment on above: Performed By: #### 1 9123-9 #### OMERO KNIGHT ([id number]) [facility] ([facility]) [address] [place] [address] 98965 Eosinophils/100 WBC (Bld) 1.8 % Normal 0.0-6.0 [facility] Comment on above: Performed By: #### 1 9123-9 #### OMERO KNIGHT ([id number]) [facility] ([facility]) [address] [place] [address] 15066 Erythrocyte distribution width (RBC) [Ratio] 15.2 % High 11.5-14.5 [facility] Comment on above: Performed By: #### 1 9123-9 #### OMERO KNIGHT ([id number]) [facility] ([facility]) [address] [place] [address] Hematocrit (Bld) [Volume fraction] 34.5 % Low 36.0-46.0 [facility] Comment on above: Performed By: #### 1 9123-9 #### OMERO KNIGHT ([id number]) [facility] ([facility]) [address] [place] [address] Hemoglobin (Bld) [Mass/Vol] 10.8 g/dL Low 12.0-16.0 [facility] Comment on above: Performed By: #### 1 9123-9 #### OMERO KNIGHT ([id number]) [facility] ([facility]) [address] [place], [place] [phone] Immature granulocytes (Bld) [#/Vol] 0.05 x10*3/uL Normal 0.00-0.50 [facility] Comment on above: Performed By: #### 1 9123-9 #### OMERO KNIGHT ([id number]) [facility] ([facility]) [address] [place] [address] Immature granulocytes/100 WBC (Bld) 0.6 % Normal 0.0-0.9 [facility] Comment on above: Result Comment: Martina ture Granulocyte Count (IG) includes promyelocytes, myelocytes and metamyelocytes but does not include bands. Percent differential counts (%) should be interpreted in the context of the absolute cell counts (cells/UL). Performed By: #### 1 9123-9 #### OMERO KNIGHT ([id number]) [facility] ([facility]) [address] [place] [address] 56059 Lymphocytes (Bld) [#/Vol] 3.08 x10*3/uL High 0.80-3.00 [facility] Comment on above: Performed By: #### 1 9123-9 #### OMERO KNIGHT ([id number]) [facility] ([facility]) [address] [place] [address] 08182 Lymphocytes/100 WBC (Bld) 34.8 % Normal 13.0-44.0 [facility] Comment on above: Performed By: #### 1 9123-9 #### OMERO KNIGHT ([id number]) [facility] ([facility]) [address] [place] [address] 14050 MCH (RBC) [Entitic mass] 26.5 pg Normal 26.0-34.0 [facility] Comment on above: Performed By: #### 1 9123-9 #### OMERO KNIGHT ([id number]) [facility] ([facility]) [address] [place] [address] 13498 MCHC (RBC) [Mass/Vol] 31.3 g/dL Low 32.0-36.0 [facility] [place] [facility] Comment on above: Performed By: #### 1 9123-9 #### OMERO KNIGHT ([id number]) [facility] ([facility]) [address] [place] [address] 41610 MCV (RBC) [Entitic vol] 85 fL Normal 80-100 [facility] Comment on above: Performed By: #### 1 9123-9 #### OMERO KNIGHT ([id number]) [facility] ([facility]) [address] [place] [address] 42659 Monocytes (Bld) [#/Vol] 0.67 x10*3/uL Normal 0.05-0.80 [facility] Comment on above: Performed By: #### 1 9123-9 #### OMERO KNIGHT ([id number]) [facility] ([facility]) [address] [place] [address] 38579 Monocytes/100 WBC (Bld) 7.6 % Normal 2.0-10.0 [facility] Comment on above: Performed By: #### 1 9123-9 #### OMERO KNIGHT ([id number]) [facility] ([facility]) [address] [place] [address] 07603 Neutrophils (Bld) [#/Vol] 4.83 x10*3/uL Normal 1.60-5.50 [facility] Comment on above: Result Comment: Perc ent differential counts (%) should be interpreted in the context of the absolute cell counts (cells/uL). Performed By: #### 1 9123-9 #### OMERO KNIGHT ([id number]) [facility] ([facility]) [address] [place] [address] 25959 Neutrophils/100 WBC (Bld) 54.6 % Normal 40.0-80.0 [facility] Comment on above: Performed By: #### 1 9123-9 #### OMERO KNIGHT ([id number]) [facility] ([facility]) [address] [place] [address] 73107 Nucleated RBC/100 WBC (Bld) [Ratio] 0.0 /100 WBCs Normal 0.0-0.0 [facility] Comment on above: Performed By: #### 1 9123-9 #### OMERO KNIGHT ([id number]) [facility] ([facility]) [address] [place] [address] 58657 Platelets (Bld) [#/Vol] 263 x10*3/uL Normal 150-450 [facility] Comment on above: Performed By: #### 1 9123-9 #### OMERO KNIGHT ([id number]) [facility] ([facility]) [address] [place] [address] 65356 RBC (Bld) [#/Vol] 4.08 x10*6/uL Normal 4.00-5.20 [facility] Comment on above: Performed By: #### 1 9123-9 #### OMERO KNIGHT ([id number]) [facility] ([facility]) [address] [place] [address] 68152 WBC (Bld) [#/Vol] 8.8 x10*3/uL Normal 4.4-11.3 [facility] Comment on above: Performed By: #### 1 9123-9 #### OMERO KNIGHT ([id number]) [facility] ([facility]) [address] [place] [address] GUIDED PERCUTANEOUS BIOPS Y BONE DEEPon 08-02-2024 CT GUIDED PERCUTANEOUS BIOPSY BONE DEEP Interpreted By: Caron Donaldson and Calo Sean-Matthew STUDY: CT-guided bone marrow biopsy; 11/13/2023 11:07 am INDICATION: Signs/Symptoms:Bone biopsy, 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 COMPARISON: MR thoracic spine and CT thoracic spine 11/06/2023. ACCESSION NUMBER(S): [id number] ORDERING CLINICIAN: RU ORTEGA TECHNIQUE: INTERVENTIONALIST(S): MD Garett Chaudhari MD CONSENT: The patient was informed of the nature of the proposed procedure. The purposes, alternatives, risks, and benefits were explained and discussed. All questions were answered and consent was obtained. HISTORY: The history and physical exam pertinent to the procedure were reviewed and no updates were made. RADIATION EXPOSURE: Total dose length product (DLP): 702.1 mGy * cm SEDATION: Moderate conscious IV sedation services (supervision of administration, induction, and maintenance) were provided by the attending physician performing the procedure with intravenous fentanyl 100 mcg and Versed 2 mg for 20 minutes. The physician was assisted by an independent trained observer, an interventional radiology nurse, in the continuous monitoring of patient level of consciousness and physiologic status. MEDICATION/CONTRAST: No additional. TIME OUT: A time out was performed immediately prior to procedure start with the interventional team, correctly identifying the patient name, date of , medical record number, procedure, anatomy (including marking of site and side), patient position, procedure consent form, relevant laboratory and imaging test results, safety precautions, and procedure-specific equipment needs. PROCEDURE: The patient was placed in left lateral decubitus position on the interventional CT scanner bed. An initial integrated logistics programs director image and axial noncontrast CT images of the pelvis were obtained. Imaging findings are discussed below. A posterior percutaneous transpedicular approach was chosen for biopsy of the T7 vertebral body. The skin site was marked, prepped, and draped in usual sterile fashion. Local anesthesia of the skin and deep tissues was administered with 1% lidocaine. An 11 gauge coaxial needle system was advanced to the T7 vertebral body and seated within the bone. A core biopsy was performed through the coaxial system using a powered 13 gauge biopsy needle (one core specimen obtained). The needles were removed and sterile dressing applied. Specimens were sent to surgical pathology as well as culture per requesting team. The patient tolerated the procedure well without evidence of immediate complication. The patient was then monitored in the radiology recovery area for approximately 1 hour prior to discharge. FINDINGS: Initial axial noncontrast CT images of the pelvis demonstrate no acute findings. Intraprocedural CT images demonstrate percutaneous biopsy of the iliac in progress as discussed above. IMPRESSION: Technically successful CT-guided biopsy of the T7 vertebra. Specimens were sent to pathology/laboratory per requesting team. I was present for the entirety of the procedure as detailed above. I personally reviewed the images/study and I agree with the findings as stated by Justin Gatica MD. This study was interpreted at [place], [place]. MACRO: None Signed by: Caron Donaldson 11/14/2023 8:11 AM Dictation workstation: [id number] Normal [facility] Comment on above: Order Comment: Last xarelto dose was at [facility] on 11/07 at 9AM Comprehensive metabolic 2000 panelon 11-09-2023 Albumin BCP dye [Mass/Vol] 2.8 g/dL Low 3.4 - 5.0 g/dL [facility] ALP [Catalytic activity/Vol] 134 U/L 33 - 136 U/L [facility] ALT With P-5'-P [Catalytic activity/Vol] 12 U/L 7 - 45 U/L [facility] Anion gap [Moles/Vol] 15 mmol/L 10 - 2 0 mmol/L [facility] AST With P-5'-P [Catalytic activity/Vol] 22 U/L 9 - 39 U/L [facility] Bilirubin [Mass/Vol] 0.4 mg/dL 0.0 - 1 .2 mg/dL [facility] Calcium [Mass/Vol] 8.4 mg/dL Low 8.6 - 10. 6 mg/dL [facility] Chloride [Moles/Vol] 96 mmol/L Low 98 - 10 7 mmol/L [facility] CO2 [Moles/Vol] 25 mmol/L 21 - 32 mmol/L [facility] Creatinine [Mass/Vol] 0.80 mg/dL 0.50 - 1.05 mg/dL [facility] GFR/1.73 sq M.predicted among non-blacks MDRD (S/P/Bld) [Vol rate/Area] 77 mL/min/{1.73_m2} - PINF [facility] Glucose [Mass/Vol] 115 mg/dL High 74 - 99 mg/dL [facility] Potassium [Moles/Vol] 3.7 mmol/L 3.5 - 5.3 mmol/L [facility] Protein [Mass/Vol] 5.8 g/dL Low 6.4 - 8.2 g/dL [facility] Sodium [Moles/Vol] 132 mmol/L Low 136 - 145 mmol/L [facility] Urea nitrogen [Mass/Vol] 14 mg/dL 6 - 23 mg/dL [facility] Albumin BCP dye [Mass/Vol] 2.8 g/dL Low 3.4-5.0 [facility] Comment on above: Performed By: #### 1 9123-9 #### OMERO KNIGHT ([id number]) [facility] ([facility]) [address] [place] [address] ALP [Catalytic activity/Vol] 134 U/L Normal 33-136 [facility] Comment on above: Performed By: #### 1 9123-9 #### OMERO KNIGHT ([id number]) [facility] ([facility]) [address] [place] [address] 13963 ALT With P-5'-P [Catalytic activity/Vol] 12 U/L Normal 7-45 [facility] Comment on above: Result Comment: Madhavi ents treated with Sulfasalazine may generate falsely decreased results for ALT. Performed By: #### 1 9123-9 #### OMERO KNIGHT ([id number]) [facility] ([facility]) [facility] [place] [address] Anion gap [Moles/Vol] 15 mmol/L Normal 10-20 [facility] Comment on above: Performed By: #### 1 9123-9 #### OMERO KNIGHT ([id number]) [facility] ([facility]) [address] [place] [address] 99339 AST With P-5'-P [Catalytic activity/Vol] 22 U/L Normal 9-39 [facility] Comment on above: Performed By: #### 1 9123-9 #### OMERO KNIGHT ([id number]) [facility] ([facility]) [address] [place] [address] Bilirubin [Mass/Vol] 0.4 mg/dL Normal 0.0-1.2 [facility] Comment on above: Performed By: #### 1 9123-9 #### MOERO KNIGHT ([id number]) [facility] ([facility]) [address] [place] [address]19 Calcium [Mass/Vol] 8.4 mg/dL Low 8.6-10.6 [facility] Comment on above: Performed By: #### 1 9123-9 #### OMERO KNIGHT ([id number]) [facility] ([facility]) [address] [place] [address] Chloride [Moles/Vol] 96 mmol/L Low 98-107 [facility] Comment on above: Performed By: #### 1 9123-9 #### OMERO KNIGHT ([id number]) [facility] ([facility]) [address] [place] [address] CO2 [Moles/Vol] 25 mmol/L Normal 21-32 [facility] Comment on above: Performed By: #### 1 9123-9 #### OMERO KNIGHT ([id number]) [facility] ([facility]) [facility] [place] [address] Creatinine [Mass/Vol] 0.80 mg/dL Normal 0.50-1.05 [facility] Comment on above: Performed By: #### 1 9123-9 #### OMERO KNIGHT ([id number]) [facility] ([facility]) [address] [place] [address] 29958 Glomerular filtration rate/1.73 sq M.predicted 77 mL/min/1.73m*2 Normal >60 [facility] Comment on above: Result Comment: Calc ulations of estimated GFR are performed using the 2020 CKD-EPI Study Refit equation without the race variable for the IDMS-Traceable creatinine methods. https://jasn.asnjournals.org/content/early//ASN.05136 00295 Performed By: #### 1 9123-9 #### OMERO KNIGHT ([id number]) [facility] ([facility]) [address] [place] [address] 13628 Glucose [Mass/Vol] 115 mg/dL High 74-99 [facility] Comment on above: Performed By: #### 1 9123-9 #### OMERO KNIGHT ([id number]) [facility] ([facility]) [address] [place] [address] 05117 Potassium [Moles/Vol] 3.7 mmol/L Normal 3.5-5.3 [facility] Comment on above: Performed By: #### 1 9123-9 #### OMERO KNIGHT ([id number]) [facility] ([facility]) [address] [place] [address] 90277 Protein [Mass/Vol] 5.8 g/dL Low 6.4-8.2 [facility] Comment on above: Performed By: #### 1 9123-9 #### OMERO KNIGHT ([id number]) [facility] ([facility]) [address] [place] [address] 97925 Sodium [Moles/Vol] 132 mmol/L Low 136-145 [facility] Comment on above: Performed By: #### 1 9123-9 #### OMERO KNIGHT ([id number]) [facility] ([facility]) [address] [place] [address] 59927 Urea nitrogen [Mass/Vol] 14 mg/dL Normal 6-23 [facility] Comment on above: Performed By: #### 1 9123-9 #### OMERO KNIGHT ([id number]) [facility] ([facility]) [address] [place] [address] 84505 ECG 12-LEADon 11-09-2023 ECG 12-LEAD Ventricular Rate 73 Atrial Rate 73 P-R Interval 196 QRS Duration 106 Q-T Interval 384 QTC Calculation(Bazett) 423 P Critz -24 R Critz -46 T Critz -41 QRS Count 12 Q Onset 205 P Onset 107 P Offset 148 T Offset 397 QTC Fredericia 410 Diagnosis Atrial fibrillation Left axis deviation Low voltage QRS Cannot rule out Anterior infarct , age undetermined Abnormal ECG Confirmed by Fabio Bee ([id number]) on 11/15/2023 2:34:28 PM Normal [facility] Glucose Test strip manual (B ld) [Mass/Vol]on 11-09-2023 Glucose [Mass/Vol] 140 mg/dL High 74 - 99 mg/dL [facility] Interpretation and review of laboratory results Abnormal [facility] Glucose [Mass/Vol] 140 mg/dL High 74-99 [facility] Comment on above: Performed By: #### 2 432-8 #### OMERO KNIGHT ([id number]) [facility] ([facility]) [address] [place] [address] 12703 Glucose [Mass/Vol] 118 mg/dL High 74 - 99 mg/dL [facility] Interpretation and review of laboratory results Abnormal [facility] Glucose [Mass/Vol] 118 mg/dL High 74-99 [facility] Comment on above: Performed By: #### 2 432-8 #### OMERO KNIGHT ([id number]) [facility] ([facility]) [address] [place] [address] 16127 Glucose [Mass/Vol] 120 mg/dL High 74 - 99 mg/dL [facility] Interpretation and review of laboratory results Abnormal [facility] Glucose [Mass/Vol] 120 mg/dL High 74-99 [facility] Comment on above: Performed By: #### 2 4322-8 #### OMERO KNIGHT ([id number]) [facility] ([facility]) [address] [place] [address] 18273 Glucose [Mass/Vol] 142 mg/dL High 74 - 99 mg/dL [facility] Interpretation and review of laboratory results Abnormal [facility] Glucose [Mass/Vol] 142 mg/dL High 74-99 [facility] Comment on above: Performed By: #### 2 4323-8 #### OMERO KNIGHT ([id number]) [facility] ([facility]) [address] [place] [address] Glucose [Mass/Vol] 139 mg/dL High 74 - 99 mg/dL [facility] Interpretation and review of laboratory results Abnormal [facility] Glucose [Mass/Vol] 139 mg/dL High 74-99 [facility] Comment on above: Performed By: #### 1 9123-9 #### OMERO KNIGHT ([id number]) [facility] ([facility]) [address] [place] [id number] Magnesiumon 11-09-2023 Magnesium [Mass/Vol] 1.30 mg/dL Low 1.60 - 2.40 mg/dL [facility] Magnesium [Mass/Vol] 1.30 mg/dL Low 1.60-2.40 [facility] Comment on above: Performed By: #### 1 9123-9 #### OMERO KNIGHT ([id number]) [facility] ([facility]) [address] [place] [address] No Panel Informationon 11-08 Interpretation and review of laboratory results Abnormal [facility] Urinalysis complete panel (U )on 11-09-2023 Appearance (U) Clear Clear [facility] Bilirubin (U) [Mass/Vol] Negative NEGATIVE [facility] Color (U) Light-Yellow Light-Yellow , Yellow, Dark-Yellow [facility] Glucose Auto test strip (U) [Mass/Vol] Normal Normal mg/dL [facility] Interpretation and review of laboratory results Normal [facility] Ketones (U) [Mass/Vol] Negative NEGAT JORGE mg/dL [facility] Leukocyte esterase Auto test strip Ql (U) Negative NEGATIVE [facility] Nitrite Auto test strip Ql (U) Negative NEGATIVE [facility] pH (U) 5.5 [pH] 5.0, 5.5, 6.0, 6.5, 7.0, 7.5, 8.0 [facility] Protein (U) [Mass/Vol] Negative NEGAT JORGE, 10 (TRACE), 20 (TRACE) mg/dL [facility] RBC (U) [#/Vol] Negative NEGATIVE [facility] Specific gravity (U) [Rel density] 1.011 1.005 - 1.035 [facility] Urobilinogen (U) [Mass/Vol] Normal Normal mg/dL [facility] Appearance (U) Clear Normal Clear [facility] Comment on above: Performed By: #### 1 9123-9 #### OMERO KNIGHT ([id number]) [facility] ([facility]) [address] [place] [address] 62732 Bilirubin (U) [Mass/Vol] Negative Normal NEGATIVE [facility] Comment on above: Performed By: #### 1 9123-9 #### OMERO KNIGHT ([id number]) [facility] ([facility]) [address] [place] [address] 63177 Color (U) Light-Yellow Normal Light-Yellow , Yellow, Dark-Yellow [facility] Comment on above: Performed By: #### 1 9123-9 #### OMERO KNIGHT ([id number]) [facility] ([facility]) [address] [place] [address] 18972 Glucose Auto test strip (U) [Mass/Vol] Normal Normal Normal [facility] Comment on above: Performed By: #### 1 9123-9 #### OMERO KNIGHT ([id number]) [facility] ([facility]) [address] [place] [address] 21939 Ketones (U) [Mass/Vol] Negative Normal [facility] Comment on above: Performed By: #### 1 9123-9 #### OMERO KNIGHT ([id number]) [facility] ([facility]) [address] [place] [address] 22286 Leukocyte esterase Auto test strip Ql (U) Negative Normal NEGATIVE [facility] Comment on above: Performed By: #### 1 9123-9 #### OMERO KNIGHT ([id number]) [facility] ([facility]) [address] [place] [address] 19156 Nitrite Auto test strip Ql (U) Negative Normal NEGATIVE [facility] Comment on above: Performed By: #### 1 9123-9 #### OMERO KNIGHT ([id number]) [facility] ([facility]) [address] [place] [address] 07498 pH (U) 5.5 [pH] Normal 5.0, 5.5, 6.0, 6.5, 7.0, 7.5, 8.0 [facility] Comment on above: Performed By: #### 1 9123-9 #### OMERO KNIGHT ([id number]) [facility] ([facility]) [address] [place] [address] 05920 Protein (U) [Mass/Vol] Negative Normal NEGAT JORGE, 10 (TRACE), 20 (TRACE) [facility] Comment on above: Performed By: #### 1 9123-9 #### OMERO KNIGHT ([id number]) [facility] ([facility]) [address] [place] [address] RBC (U) [#/Vol] Negative Normal NEGATIVE [facility] Comment on above: Performed By: #### 1 9123-9 #### OMERO KNIGHT ([id number]) [facility] ([facility]) [address] [place] [address] Specific gravity (U) [Rel density] 1.011 Normal 1.005-1.035 [facility] Comment on above: Performed By: #### 1 9123-9 #### OMERO KNIGHT ([id number]) [facility] ([facility]) [address] [place] [address] 01892 Urobilinogen (U) [Mass/Vol] Normal Normal Normal [facility] Comment on above: Performed By: #### 1 9123-9 #### OMERO KNIGHT ([id number]) [facility] ([facility]) [address] [place] [address] 43850 C reactive proteinon 024 CRP [Mass/Vol] 4.29 mg/dL High <1.00 [facility] Comment on above: Performed By: #### 1 988-5 ####OMERO KNIGHT ([id number])[facility] ([facility])[address] [place], [place] [address] CBC panel Auto (Bld)on 11-07 Erythrocyte distribution width (RBC) [Ratio] 15.3 % High 11.5-14.5 [facility] Comment on above: Performed By: #### 5 8410-2 ####OEMRO KNIGHT ([id number])[facility] ([facility])[address] [place] [address] 60007 Hematocrit (Bld) [Volume fraction] 33.3 % Low 36.0-46.0 [facility] Comment on above: Performed By: #### 5 8410-2 ####OMERO KNIGHT ([id number])[facility] ([facility])[address] [place] [address] 26294 Hemoglobin (Bld) [Mass/Vol] 10.3 g/dL Low 12.0-16.0 [facility] Comment on above: Performed By: #### 5 8410-2 ####OMERO KNIGHT ([id number])[facility] ([facility])[address] [place] [address] 21743 MCH (RBC) [Entitic mass] 26.5 pg Normal 26.0-34.0 [facility] Comment on above: Performed By: #### 5 8410-2 ####OMERO KNIGHT ([id number])[facility] ([facility])[address] [place] [address] 54383 MCHC (RBC) [Mass/Vol] 30.9 g/dL Low 32.0-36.0 [facility] Comment on above: Performed By: #### 5 8410-2 ####OMERO KNIGHT ([id number])[facility] ([facility])[address] [place] [address] 08899 MCV (RBC) [Entitic vol] 86 fL Normal 80-100 [facility] Comment on above: Performed By: #### 5 8410-2 ####OMERO KNIGHT ([id number])[facility] ([facility])[address] [place] [address] 72250 Nucleated RBC/100 WBC (Bld) [Ratio] 0.0 /100 WBCs Normal 0.0-0.0 [facility] Comment on above: Performed By: #### 5 8410-2 ####OMERO KNIGHT ([id number])[facility] ([facility])[address] [place] [address] 91702 Platelets (Bld) [#/Vol] 228 x10*3/uL Normal 150-450 [facility] Comment on above: Performed By: #### 5 8410-2 ####OMERO KNIGHT ([id number])[facility] ([facility])[address] [place] [address] 31821 RBC (Bld) [#/Vol] 3.88 x10*6/uL Low 4.00-5.20 [facility] Comment on above: Performed By: #### 5 8410-2 ####OMERO KNIGHT ([id number])[facility] ([facility])[address] [place] [address] 55154 WBC (Bld) [#/Vol] 7.8 x10*3/uL Normal 4.4-11.3 [facility] Comment on above: Performed By: #### 5 8410-2 ####OMERO KNIGHT ([id number])[facility] ([facility])[address] [place] [address] 79368 Creatinineon 11-08-2023 Creatinine [Mass/Vol] 0.87 mg/dL Normal 0.50-1.05 [facility] Comment on above: Performed By: #### 2 160-0 ####OMERO KNIGHT ([id number])[facility] ([facility])[address] [place] [address] 02089 Creatinine [Mass/Vol]on Glomerular filtration rate/1.73 sq M.predicted 70 mL/min/1.73m*2 Normal >60 [facility] Comment on above: Result Comment: Calc ulations of estimated GFR are performed using the 2020 CKD-EPI Study Refit equation without the race variable for the IDMS-Traceable creatinine methods. https://jasn.asnjournals.org/content//ASN.11382 31238 Performed By: #### 2 160-0 ####OMERO KNIGHT ([id number])[facility] ([facility])[address] [place] [address] 92900 Glucose Test strip manual (B ld) [Mass/Vol]on 11-08-2023 Glucose [Mass/Vol] 140 mg/dL High 74-99 [facility] Comment on above: Performed By: #### 2 341-6 ####OMERO KNIGHT ([id number])[facility] ([facility])[address] [place] [address] 78226 Glucose [Mass/Vol] 111 mg/dL High 74-99 [facility] Comment on above: Performed By: #### 2 341-6 ####OMERO KNIGHT ([id number])[facility] ([facility])[address] [place] [address] 53069 Glucose [Mass/Vol] 130 mg/dL High 7499 [facility] Comment on above: Performed By: #### 2 341-6 ####OMERO KNIGHT ([id number])[facility] ([facility])[address] [place] [address] 01901 Glucose [Mass/Vol] 109 mg/dL High [address] Comment on above: Performed By: #### 2 341-6 ####OMERO KNIGHT ([id number])[facility] ([facility])[address] [place] [address] 79100 Natriuretic peptide B [Mass/ Vol]on 11-08-2023 Natriuretic peptide B (Bld) [Mass/Vol] 484 pg/mL High 0-99 [facility] Comment on above: Order Comment: <100 pg/mL - Heart failure [id number] pg/mL - Intermediate probability of acute heart failure exacerbation. Correlate with clinical context and patient history. >=300 pg/mL - Heart Failure likely. Correlate with clinical context and patient history.BNP testing is performed using different testing methodology at [facility] than at other [facility]. Direct result comparisons should only be made within the same method. Performed By: #### 3 0934-4 ####OMERO KNIGHT ([id number])[facility] ([facility])[address] [place] [address] 42536 Vancomycinon 11-08-2023 Vancomycin [Mass/Vol] 20.3 ug/mL High 5.0-20.0 [facility] Comment on above: Order Comment: Vanco mycin levels can be monitored according to area under the curve (AUC) or concentration (ug/mL). The preferred monitoring strategy is determined by the patient's renal function and indication for therapy.For AUC monitoring, a random vancomycin level should be interpreted in the context of AUC rather than the concentration at a single point in time.For concentration monitoring, a trough concentration drawn immediately prior to the next dose is preferred.Therapeutic ranges using concentration-guided results:Peak (all ages): 30.0-40.0 ug/mLTrough (all ages): 10.0-20.0 ug/mL Performed By: #### 2 0578-1 ####OMERO KNIGHT ([id number])[facility] ([facility])[address] [place] [address] Basic metabolic 2000 panelon 11-07-2023 Anion gap [Moles/Vol] 10 mmol/L Normal 10-20 [facility] Comment on above: Performed By: #### 3 0934-4 #### OMERO KNIGHT ([id number]) [facility] ([facility]) [address] [place] [address] 64962 Calcium [Mass/Vol] 8.1 mg/dL Low 8.6-10.3 [facility] Comment on above: Performed By: #### 3 0934-4 #### OMERO KNIGHT ([id number]) [facility] ([facility]) [facility] [place] [address] Chloride [Moles/Vol] 100 mmol/L Normal 98-107 [facility] Comment on above: Performed By: #### 3 0934-4 #### OMERO KNIGHT ([id number]) [facility] ([facility]) [address] [place] [address] 70095 CO2 [Moles/Vol] 26 mmol/L Normal 21-32 [facility] Comment on above: Performed By: #### 3 0934-4 #### OMERO KNIGHT ([id number]) [facility] ([facility]) [address] [place] [address] 95991 Creatinine [Mass/Vol] 0.92 mg/dL Normal 0.50-1.05 [facility] Comment on above: Performed By: #### 3 0934-4 #### OMERO KNIGHT ([id number]) [facility] ([facility]) [address] [place] [address] 01876 Glomerular filtration rate/1.73 sq M.predicted 65 mL/min/1.73m*2 Normal >60 [facility] Comment on above: Result Comment: Calc ulations of estimated GFR are performed using the 2020 CKD-EPI Study Refit equation without the race variable for the IDMS-Traceable creatinine methods. https://jasn.asnjournals.org/content/early/ASN.15500 18877 Performed By: #### 3 0934-4 #### OMERO KNIGHT ([id number]) [facility] ([facility]) [address] [place] [address] 01362 Glucose [Mass/Vol] 116 mg/dL High 74-99 [facility] Comment on above: Performed By: #### 3 0934-4 #### OMERO KNIGHT ([id number]) [facility] ([facility]) [address] [place] [address] 69400 Potassium [Moles/Vol] 3.4 mmol/L Low 3.5-5.3 [facility] Comment on above: Performed By: #### 3 0934-4 #### OMERO KNIGHT ([id number]) [facility] ([facility]) [address] [place] [address] 10826 Sodium [Moles/Vol] 133 mmol/L Low 136-145 [facility] Comment on above: Performed By: #### 3 0934-4 #### OMERO KNIGHT ([id number]) [facility] ([facility]) [address] [place] [address] 10482 Urea nitrogen [Mass/Vol] 21 mg/dL Normal 6-23 [facility] Comment on above: Performed By: #### 3 34-4 #### OMERO KNIGHT ([id number]) [facility] ([facility]) [address] [place] [address] CBC panel Auto (Bld)on 11-06 Erythrocyte distribution width (RBC) [Ratio] 15.6 % High 11.5-14.5 [facility] Comment on above: Performed By: #### 3 34-4 #### OMERO KNIGHT ([id number]) [facility] ([facility]) [address] [place] [address] Hematocrit (Bld) [Volume fraction] 32.4 % Low 36.0-46.0 [facility] Comment on above: Performed By: #### 3 34-4 #### OMERO KNIGHT ([id number]) [facility] ([facility]) [address] [place] [address] Hemoglobin (Bld) [Mass/Vol] 9.9 g/dL Low 12.0-16.0 [facility] Comment on above: Performed By: #### 3 34-4 #### OMERO KNIGHT ([id number]) [facility] ([facility]) [address] [place] [address] 03386 MCH (RBC) [Entitic mass] 26.6 pg Normal 26.0-34.0 [facility] Comment on above: Performed By: #### 3 34-4 #### OMERO KNIGHT ([id number]) [facility] ([facility]) [address] [place], [place] [address] MCHC (RBC) [Mass/Vol] 30.6 g/dL Low 32.0-36.0 [facility] Comment on above: Performed By: #### 3 34-4 #### OMERO KNIGHT ([id number]) [facility] ([facility]) [address] [place] [address] 89859 MCV (RBC) [Entitic vol] 87 fL Normal 80-100 [facility] Comment on above: Performed By: #### 3 34-4 #### OMERO KNIGHT ([id number]) [facility] ([facility]) [address] [place] [address] 40132 Nucleated RBC/100 WBC (Bld) [Ratio] 0.0 /100 WBCs Normal 0.0-0.0 [facility] Comment on above: Performed By: #### 3 34-4 #### OMERO KNIGHT ([id number]) [facility] ([facility]) [address] [place] [address] 75246 Platelets (Bld) [#/Vol] 246 x10*3/uL Normal 150-450 [facility] Comment on above: Performed By: #### 3 34-4 #### OMERO KNIGHT ([id number]) [facility] [facility]) [address] [place] [address] 86721 RBC (Bld) [#/Vol] 3.72 x10*6/uL Low 4.00-5.20 [facility] Comment on above: Performed By: #### 3 34-4 #### OMERO KNIGHT ([id number]) [facility] ([facility]) [address] [place] [address] 67983 WBC (Bld) [#/Vol] 7.8 x10*3/uL Normal 4.4-11.3 [facility] Comment on above: Performed By: #### 3 34-4 #### OMERO KNIGHT ([id number]) [facility] ([facility]) [address] [place] [address] 11166 Glucose Test strip manual (B ld) [Mass/Vol]on 11-07-2023 Glucose [Mass/Vol] 124 mg/dL High 74-99 [facility] Comment on above: Performed By: #### 3 34-4 #### OMERO KNIGHT ([id number]) [facility] ([facility]) [address] [place] [address] 30118 Glucose [Mass/Vol] 108 mg/dL High 74-99 [facility] Comment on above: Performed By: #### 3 34-4 #### OMERO KNIGHT ([id number]) [facility] ([facility]) [address] [place] [address] Glucose [Mass/Vol] 134 mg/dL High 74-99 [facility] Comment on above: Performed By: #### 3 0934-4 #### OMERO KNIGHT ([id number]) [facility] ([facility]) [address] [place] [address] Glucose [Mass/Vol] 104 mg/dL High 74-99 [facility] Comment on above: Result Comment: RN/M D NOTIFIED Performed By: #### 3 0934-4 #### OMERO KNIGHT ([id number]) [facility] ([facility]) [address] [place] [address] 77634 Vancomycinon 11-07-2023 Vancomycin [Mass/Vol] 8.5 ug/mL Normal 5.0-20.0 [facility] Comment on above: Order Comment: <100 pg/mL - Heart failure unlikely 100-299 pg/mL - Intermediate probability of acute heart failure exacerbation. Correlate with clinical context and patient history. >=300 pg/mL - Heart Failure likely. Correlate with clinical context and patient history. BNP testing is performed using different testing methodology at [facility] than at [facility]. Direct result comparisons should only be made within the same method. Performed By: #### 3 0934-4 #### OMERO KNIGHT ([id number]) [facility] ([facility]) [address] [place] [address] 32284 Bacteria identifiedon 2023 Bacteria identified Cx Nom (Bld) Test: Blood Culture Specimen Source: Peripheral Venipuncture Specimen Type: Blood culture Specimen Date: 11/06/2023728 Result Date: 11/10/2023 1201 Result Status: Final result Abnormal: No Resulting Lab: [facility] [address] [facility] [address] CULTURE No growth at 4 days - FINAL REPORT [facility] Comment on above: Performed By: #### 2 4321-2 #### OMERO KNIGHT ([id number]) [facility] ([facility]) [address] [place] [address] Bacteria identified Cx Nom (Bld) Test: Blood Culture Specimen Source: Peripheral Venipuncture Specimen Type: Blood culture Specimen Date: 11/06/202316 Result Date: 11/10/2023 1201 Result Status: Final result Abnormal: No Resulting Lab: [facility] [address] [place] [address] CULTURE No growth at 4 days - FINAL REPORT Normal [facility] Comment on above: Performed By: #### 2 4321-2 #### OMERO KNIGHT ([id number]) [facility] ([facility]) [address] [place] [address] Bacteria identified Cx Nom (U) Test: Urine Culture Specimen Source: Clean Catch/Voided Specimen Type: Urine Specimen Date: 11/06/2023536 Result Date: 11/07/2023 0836 Result Status: Final result Abnormal: Yes Resulting Lab: [facility] [address] [place] [address] CULTURE Multiple organisms present, probable contamination. Repeat culture if clinically indicated. (Abnormal) Abnormal [facility] Comment on above: Performed By: #### 3 0934-4 #### OMERO KNIGHT ([id number]) [facility] ([facility]) [address] [place] [address] CBC W Auto Differential pane l (Bld)on 11-06-2023 Basophils (Bld) [#/Vol] 0.04 x10*3/uL Normal 0.00-0.10 [facility] Comment on above: Performed By: #### 8 9577-1 #### OMERO KNIGHT ([id number]) [facility] ([facility]) [address] [place] [address] Basophils/100 WBC (Bld) 0.4 % Normal 0.0-2.0 [facility] Comment on above: Performed By: #### 8 9577-1 #### OMERO KNIGHT ([id number]) [facility] ([facility]) [address] [place] [address] 21258 Eosinophils (Bld) [#/Vol] 0.09 x10*3/uL Normal 0.00-0.40 [facility] Comment on above: Performed By: #### 8 9577-1 #### OMERO KNIGHT ([id number]) [facility] ([facility]) [address] [place] [address] 47139 Eosinophils/100 WBC (Bld) 0.8 % Normal 0.0-6.0 [facility] Comment on above: Performed By: #### 8 9577-1 #### OMERO KNIGHT ([id number]) [facility] ([facility]) [address] [place] [address] Erythrocyte distribution width (RBC) [Ratio] 15.3 % High 11.5-14.5 [facility] Comment on above: Performed By: #### 8 9577-1 #### OMERO KNIGHT ([id number]) [facility] ([facility]) [address] [place] [address] Hematocrit (Bld) [Volume fraction] 37.0 % Normal 36.0-46.0 [facility] Comment on above: Performed By: #### 8 9577-1 #### OMERO KNIGHT ([id number]) [facility] ([facility]) [address] [place] [address] 90480 Hemoglobin (Bld) [Mass/Vol] 11.6 g/dL Low 12.0-16.0 [facility] Comment on above: Performed By: #### 8 9577-1 #### OMERO KNIGHT ([id number]) [facility] ([facility]) [address] [place] [address] 93519 Immature granulocytes (Bld) [#/Vol] 0.06 x10*3/uL Normal 0.00-0.50 [facility] Comment on above: Performed By: #### 8 9577-1 #### OMERO KNIGHT ([id number]) [facility] ([facility]) [address] [place] [address] 94476 Immature granulocytes/100 WBC (Bld) 0.6 % Normal 0.0-0.9 [facility] Comment on above: Result Comment: Martina ture Granulocyte Count (IG) includes promyelocytes, myelocytes and metamyelocytes but does not include bands. Percent differential counts (%) should be interpreted in the context of the absolute cell counts (cells/UL). Performed By: #### 8 9577-1 #### OMERO KNIGHT ([id number]) [facility] ([facility]) [address] [place] [address] Lymphocytes (Bld) [#/Vol] 3.12 x10*3/uL High 0.80-3.00 [facility] Comment on above: Performed By: #### 8 9577-1 #### OMERO KNIGHT ([id number]) [facility] ([facility]) [address] [place] [address] Lymphocytes/100 WBC (Bld) 28.8 % Normal 13.0-44.0 [facility] Comment on above: Performed By: #### 8 9577-1 #### OMERO KNIGHT ([id number]) [facility] ([facility]) [address] [place] [address] 53823 MCH (RBC) [Entitic mass] 26.4 pg Normal 26.0-34.0 [facility] Comment on above: Performed By: #### 8 9577-1 #### OMERO KNIGHT ([id number]) [facility] ([facility]) [address] [place], [place] [address] MCHC (RBC) [Mass/Vol] 31.4 g/dL Low 32.0-36.0 [facility] Comment on above: Performed By: #### 8 9577-1 #### OMERO KNIGHT ([id number]) [facility] ([facility]) [address] [place] [address] 39646 MCV (RBC) [Entitic vol] 84 fL Normal 80-100 [facility] Comment on above: Performed By: #### 8 9577-1 #### OMERO KNIGHT ([id number]) [facility] ([facility]) [address] [place] [address] 87745 Monocytes (Bld) [#/Vol] 1.02 x10*3/uL High 0.05-0.80 [facility] Comment on above: Performed By: #### 8 9577-1 #### OMERO KNIGHT ([id number]) [facility] ([facility]) [address] [place] [address] 29742 Monocytes/100 WBC (Bld) 9.4 % Normal 2.0-10.0 [facility] Comment on above: Performed By: #### 8 9577-1 #### OMERO KNIGHT ([id number]) [facility] ([facility]) [address] [place] [address] 80167 Neutrophils (Bld) [#/Vol] 6.51 x10*3/uL High 1.60-5.50 [facility] Comment on above: Result Comment: Perc ent differential counts (%) should be interpreted in the context of the absolute cell counts (cells/uL). Performed By: #### 8 9577-1 #### OMERO KNIGHT ([id number]) [facility] ([facility]) [address] [place] [address] 91003 Neutrophils/100 WBC (Bld) 60.0 % Normal 40.0-80.0 [facility] Comment on above: Performed By: #### 8 9577-1 #### OMERO KNIGHT ([id number]) [facility] ([facility]) [address] [place] [address] 14145 Nucleated RBC/100 WBC (Bld) [Ratio] 0.0 /100 WBCs Normal 0.0-0.0 [facility] Comment on above: Performed By: #### 8 9577-1 #### OMERO KNIGHT ([id number]) [facility] ([facility]) [address] [place] [address] 23094 Platelets (Bld) [#/Vol] 353 x10*3/uL Normal 150-450 [facility] Comment on above: Performed By: #### 8 9577-1 #### OMERO KNIGHT ([id number]) [facility] ([facility]) [facility] [place] [address] RBC (Bld) [#/Vol] 4.40 x10*6/uL Normal 4.00-5.20 [facility] Comment on above: Performed By: #### 8 9577-1 #### OMERO KNIGHT ([id number]) [facility] ([facility]) [facility] [place] [address] WBC (Bld) [#/Vol] 10.8 x10*3/uL Normal 4.4-11.3 [facility] Comment on above: Performed By: #### 8 9577-1 #### OMERO KNIGHT ([id number]) [facility] ([facility]) [address] [place] [address] CT CHEST ABDOMEN PELVIS WO C ONTRASTon 11-06-2023 CT CHEST ABDOMEN PELVIS WO CONTRAST STUDY: CT Chest, Abdomen, and Pelvis without IV Contrast; 11/06/2023, 804 INDICATION: Abnormal thoracic spine CT. COMPARISON: CT thoracic 11/06/2023, XR chest 10/09/2023, CT abd 01/05/2020. ACCESSION NUMBER(S): [id number] ORDERING CLINICIAN: VERA HUANG TECHNIQUE: CT of the chest, abdomen, and pelvis was performed. Contiguous axial images were obtained at 3 mm slice thickness through the chest, abdomen, and pelvis. Coronal and sagittal reconstructions at 3 mm slice thickness were performed. No intravenous contrast was administered. FINDINGS: Please note that the evaluation of vessels, lymph nodes and organs is limited without intravenous contrast. There is minimal atelectasis in the left lower lobe of the lung. No consolidative infiltrate is noted. There are no pleural effusions. No filling defects are seen within the trachea or mainstem bronchi. Multiple nodules are visualized. The largest nodule is seen in the lingula abutting the vessels, measured at 1.1 x 1.0 cm(Series 3, Image 107). There is an adjacent nodule in the right middle lobe, measured at 7 x 7 mm(Series 3, Image 112). There is a 5 x 5 mm nodule in the lateral aspect of the right upper lobe(Series 3, Image 41). There is no evidence of a pneumothorax. Evaluation for hilar adenopathy is limited due to lack of IV contrast. Subcentimeter lymph nodes are seen in the mediastinum. There is no pericardial effusion. Coronary artery calcifications are present. There is no evidence of aneurysmal dilatation of the ascending aorta, aortic arch, or descending thoracic aorta. Degenerative changes are seen throughout the thoracic spine. There are prominent endplate changes seen at T6-7 and T7-8, suspicious for discitis/osteomyelitis. There is prominent prevertebral soft tissue swelling noted at these levels, suggestive of overlying phlegmonous changes. Evaluation for an abscess is limited due to lack of IV contrast. Evaluation of the abdominal viscera is suboptimal due to lack of IV contrast. No acute findings are seen within the unenhanced liver, spleen, pancreas, or adrenal glands. There is a nonobstructing 2 mm stone in the midpole of the left kidney. No hydronephrosis is noted. No bladder calculi are noted. No dilated loops of small bowel or colon are visualized. There is no evidence for free intraperitoneal air. The appendix is normal in appearance. No enlarged lymph nodes are seen within the pelvic sidewalls, iliac chains, or retroperitoneum. There is no evidence of aneurysmal dilatation of the abdominal aorta. No prominent edema is seen within the psoas musculature. Degenerative changes are seen throughout the lumbar spine. There are calcified uterine fibroids. IMPRESSION: CHEST: 1. Endplate changes involving T6-7 and T7-8, indicative of discitis/osteomyelitis. Prominent prevertebral soft tissue swelling noted, indicative of phlegmonous changes. Evaluation for an abscess is limited due to lack of IV contrast. 2. Multiple right lung nodules. The largest is measured at 1.1 x 1.0 cm in the right middle lobe. Malignancy cannot be excluded. Follow-up with PET CT scan is recommended. 3. Coronary artery calcifications. ABDOMEN/PELVIS: 1. Evaluation for an abscess is limited due to lack of IV contrast. 2. Left-sided nephrolithiasis, with no evidence of hydronephrosis. 3. Calcified uterine fibroids. Signed by Mychal Chavez MD [facility] CT THORACIC SPINE WO IV CONT Hay 11-06-2023 CT THORACIC SPINE WO IV CONTRAST STUDY: CT Thoracic Spine without IV Contrast; 11/06/2023 at 5:45 AM. INDICATION: Thoracic back pain. COMPARISON: None available. ACCESSION NUMBER(S): [id number] ORDERING CLINICIAN: [employer]INNY [employer] TECHNIQUE: CT of the thoracic spine was performed without intravenous or intrathecal contrast. Sagittal and coronal reconstructions were generated. Automated mA/kV exposure control was utilized and patient examination was performed in strict accordance with principles of ALARA. FINDINGS: What I see of the mediastinum demonstrates vascular calcifications of the great vessels and of the aortic arch without evidence of aneurysmal dilatation. Coronary artery calcifications are noted ---no gross evidence of pericardial effusion. The ascending aorta appears to be normal---- extensive vessel calcifications of the abdomen are noted. Esophageal bed appears to be normal. What I see of the adrenal glands and upper kidneys normal. There are some calcifications at the level of the left kidney measuring 2 to 3 mm that exist in a nonobstructive fashion with nephrolithiasis. Kidney atrophic changes are identified. Pancreatic bed shows fatty replacement of the pancreas ----the body of the pancreas appears to be somewhat bulbous in appearance. Recommend pancreatic CT examination with contrast The lung parenchyma is abnormal. There are scattered pulmonary nodules --- one exists in the right upper lobe measuring 0.52 cm seen on slice 172 of 729 ---a larger pulmonary nodules/lung mass exists on slice 450 / 279---this has spiculated margins measuring 1.03 cm. Some right lung scarring and fibrotic changes are identified. There is a small granuloma that exists in the right upper lobe on slice 347 of 729. Small pulmonary nodule in the left lower lobe seen on slice 479/ 729. Small granuloma in the right upper lobe measures 0.2 cm seen on slice 134 / 729. Not all of the lung parenchyma is included in our examination ---may want to correlate with full chest CT at some point. . No focal area of airspace disease. The alignment of the thoracic vertebral bodies is normal. Widespread degenerative disc changes. Various thoracic vertebral bodies demonstrate areas of low density scattered throughout the thoracic region. Cannot exclude metastatic thoracic spine lesions given this appearance. Small sclerotic focus also exists in the superior endplate of C7---- question small bone sclerotic metastasis vs. bone island. In addition to the extensive degenerative changes and osteophytes----- there appears to be dissolution and destructive changes involving the endplates of T6-7 and T7-8 with surrounding soft tissue edematous changes at this level. The endplates of T6 T7 T8 appear to be irregularly marginated and ill-defined. This is concerning for areas of discitis and again the soft tissue surrounding may also be inflammatory in origin. Consider bacterial infection/ atypical infection such as tuberculosis also would have to be considered. Correlate with fever, sedimentation rate etc. No distinct evidence of focal rib abnormality on our limited view of the ribs. Some of this abnormal presumed inflammatory soft tissue that envelopes T6-7 and 8 does appear to abut the posterior aspect of the descending aorta. No definite evidence of abnormal soft tissue density of the thoracic canal and certainly correlation with MRI is recommended to assess thecal sac and to better assess endplate destructive changes and surrounding soft tissue at T6,7,8. The MRI will also a evaluation of the multifocal small low-density lesions involving the thoracic spine. Spinous processes appear to be normal. No cheryle evidence of bony destructive change involving the pedicles at the present time. No loss of vertebral body height. Some areas of minimal vacuum phenomenon. The lower thoracic region demonstrates extensive DDD and DJD including vacuum phenomena. IMPRESSION: Extensive calcifications of the great vessels Nephrolithiasis suspected Cholecystitis changes Mild bulbous prominence of the body of the pancreas. Recommend CT of the Abdomen with contrast designed to look at the pancreas. Coronary artery calcifications Minimal basilar fibrotic changes of the lungs Multifocal pulmonary nodules of the lungs seen bilaterally in conjunction with granulomatous changes. Certainly could not exclude metastatic disease in the lungs. May want to correlate with a formal chest CT to assess the entire lung parenchyma and certainly correlate with malignancy history. 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 Quite nonspecific but cannot exclude metastatic lesions of the thoracic spine There is endplate destructive changes involving T6-7, T7-8 with some associated surrounding soft tissue concerning for infl (more content not included)... Normal [facility] Comprehensive metabolic 2000 panelon 11-06-2023 Albumin BCP dye [Mass/Vol] 3.3 g/dL Low 3.4-5.0 [facility] Comment on above: Performed By: #### 2 4321-2 #### JAMIL EUGENE ([id number]) [facility] ([facility]) [address] [place] [address] ALP [Catalytic activity/Vol] 133 U/L Normal 33-136 [facility] Comment on above: Performed By: #### 2 4321-2 #### OMERO KNIGHT ([id number]) [facility] ([facility]) [address] [place] [address] ALT With P-5'-P [Catalytic activity/Vol] 10 U/L Normal 7-45 [facility] Comment on above: Result Comment: Madhavi ents treated with Sulfasalazine may generate falsely decreased results for ALT. Performed By: #### 2 4321-2 #### OMERO KNIGHT ([id number]) [facility] ([facility]) [address] [place] [address] Anion gap [Moles/Vol] 15 mmol/L Normal 10-20 [facility] Comment on above: Performed By: #### 2 4321-2 #### OMERO KNIGHT ([id number]) [facility] ([facility]) [facility] [place] [address] AST With P-5'-P [Catalytic activity/Vol] 14 U/L Normal 9-39 [facility] Comment on above: Performed By: #### 2 4321-2 #### OMERO KNIGHT ([id number]) [facility] ([facility]) [address] [place] [address] Bilirubin [Mass/Vol] 0.5 mg/dL Normal 0.0-1.2 [facility] Comment on above: Performed By: #### 2 4321-2 #### OMERO KNIGHT ([id number]) [facility] ([facility]) [facility] [place] [address] Calcium [Mass/Vol] 9.2 mg/dL Normal 8.6-10.3 [facility] Comment on above: Performed By: #### 2 4321-2 #### OMERO KNIGHT ([id number]) [facility] ([facility]) [address] [place] [address] 58112 Chloride [Moles/Vol] 96 mmol/L Low 98-107 [facility] Comment on above: Performed By: #### 2 4321-2 #### OMERO KNIGHT ([id number]) [facility] ([facility]) [address] [place] [address] CO2 [Moles/Vol] 26 mmol/L Normal 21-32 [facility] Comment on above: Performed By: #### 2 4321-2 #### OMERO KNIGHT ([id number]) [facility] ([facility]) [facility] [place] [address] Creatinine [Mass/Vol] 1.12 mg/dL High 0.50-1.05 [facility] Comment on above: Performed By: #### 2 4321-2 #### OMERO KNIGHT ([id number]) [facility] ([facility]) [address] [place] [address] 12065 Glomerular filtration rate/1.73 sq M.predicted 51 mL/min/1.73m*2 Low >60 [facility] Comment on above: Result Comment: Calc ulations of estimated GFR are performed using the 2020 CKD-EPI Study Refit equation without the race variable for the IDMS-Traceable creatinine methods. https://jasn.asnjournals.org/content/early//ASN.37517 71770 Performed By: #### 2 432-2 #### OMERO KNIGHT ([id number]) [facility] ([facility]) [address] [place] [address] 24310 Glucose [Mass/Vol] 153 mg/dL High 74-99 [facility] Comment on above: Performed By: #### 2 1-2 #### OMERO KNIGHT ([id number]) [facility] ([facility]) [address] [place] [address] 80038 Potassium [Moles/Vol] 3.8 mmol/L Normal 3.5-5.3 [facility] Comment on above: Performed By: #### 2 4321-2 #### OMERO KNIGHT ([id number]) [facility] ([facility]) [address] [place] [address] 78767 Protein [Mass/Vol] 7.4 g/dL Normal 6.4-8.2 [facility] Comment on above: Performed By: #### 2 4321-2 #### OMERO KNIGHT ([id number]) [facility] ([facility]) [address] [place] [address] Sodium [Moles/Vol] 133 mmol/L Low 136-145 [facility] Comment on above: Performed By: #### 2 4321-2 #### OMERO KNIGHT ([id number]) [facility] ([facility]) [address] [place], [place] [address] Urea nitrogen [Mass/Vol] 29 mg/dL High 6-23 [facility] Comment on above: Performed By: #### 2 4321-2 #### OMERO KNIGHT ([id number]) [facility] ([facility]) [address] [place] [address] ECG 12-LEADon 11-06-2023 ECG 12-LEAD Ventricular Rate 96 QRS Duration 116 Q-T Interval 354 QTC Calculation(Bazett) 447 R Critz -50 T Critz 125 QRS Count 16 Q Onset 203 T Offset 380 QTC Fredericia 414 Diagnosis Atrial fibrillation with premature ventricular or aberrantly conducted complexes Low voltage QRS Left anterior fascicular block ST & T wave abnormality, consider lateral ischemia Abnormal ECG When compared with ECG of 10-OCT-2023 01:16, No significant change was found See ED provider note for full interpretation and clinical correlation Confirmed by Sophie Florian ([id number]) on 11/06/2023 8:58:45 PM Normal [facility] Glucose Test strip manual (B ld) [Mass/Vol]on 11-06-2023 Glucose [Mass/Vol] 128 mg/dL High 74-99 [facility] Comment on above: Performed By: #### 3 0934-4 #### OMERO KNIGHT ([id number]) [facility] ([facility]) [address] [place] [address] Glucose [Mass/Vol] 98 mg/dL Normal 74-99 [facility] Comment on above: Performed By: #### 3 0934-4 #### OMERO KNIGHT ([id number]) [facility] ([facility]) [address] [place] [address] MR CERVICAL SPINE W AND WO I V CONTRASTon 11-06-2023 MR CERVICAL SPINE W AND WO IV CONTRAST Interpreted By: Lynda Bal, STUDY: MR CERVICAL SPINE W AND WO IV CONTRAST; 11/06/2023 12:58 pm INDICATION: Signs/Symptoms:Abnormal CT thoracic spine, Cancer staging. COMPARISON: None. ACCESSION NUMBER(S): [id number] ORDERING CLINICIAN: VERA HUANG TECHNIQUE: Sagittal T1, T2, STIR, axial T1 and axial T2 weighted images were acquired through the cervical spine. FINDINGS: The examination is markedly degraded by patient motion artifact. Alignment: The vertebral alignment is within normal limits. Vertebrae/Intervertebral Discs: The vertebral bodies demonstrate expected height. The marrow signal is within normal limits given patient motion artifact. No focal edema is noted on the STIR sequence within the bone marrow. There is desiccated disc signal throughout the cervical spine. Varying degrees of tegh-mz-hwjutxtg disc height loss. Cord: Within the limitation of motion artifact no abnormal signal or enhancement within the cervical cord. C1-C2: The cervicomedullary junction appears unremarkable. No spinal canal stenosis. C2-C3: No spinal canal or neural foraminal stenosis. C3-C4: Disc osteophyte complex, uncovertebral joint hypertrophy and facet arthrosis. Mild spinal canal stenosis. Moderate bilateral neural foraminal stenosis. C4-C5: Disc osteophyte complex, uncovertebral joint hypertrophy and facet arthrosis. Moderate to severe spinal canal stenosis and moderate to severe bilateral neural foraminal stenosis. C5-C6: Disc osteophyte complex, uncovertebral joint hypertrophy and facet arthrosis. Moderate to severe spinal canal and neural foraminal stenosis. C6-C7: Disc osteophyte complex uncovertebral joint hypertrophy and facet arthrosis. Moderate spinal canal and neural foraminal stenosis. C7-T1: Disc osteophyte complex and uncovertebral joint hypertrophy. No spinal canal stenosis. Moderate bilateral neural foraminal stenosis. Prevertebral soft tissues are not thickened. IMPRESSION: The examination is moderately degraded by patient motion artifact. Within this limitation, no evidence of focal osseous metastatic disease. No definite abnormal signal or enhancement within the cervical cord. Multilevel degenerative changes as detailed above. MACRO: None Signed by: Lynda Bal 11/06/2023 1:10 PM Dictation workstation: [id number] [facility] MR LUMBAR SPINE W AND WO IV CONTRASTon 11-06-2023 MR LUMBAR SPINE W AND WO IV CONTRAST Interpreted By: Lynda Bal, STUDY: MRI of the lumbar spine without IV contrast; 11/06/2023 12:58 pm INDICATION: Signs/Symptoms:Abnormal thoracic CT scan, cancer staging. COMPARISON: None. ACCESSION NUMBER(S): [id number] ORDERING CLINICIAN: VERA HUANG TECHNIQUE: Sagittal and axial STIR and T1-weighted MRI images of the lumbar spine were acquired using a spondylolysis protocol. 20 mL Dotarem injected intravenously. Sagittal and axial T1 postcontrast images were performed. FINDINGS: For counting purposes the last lumbarized vertebral body is labeled L5. Alignment and vertebral body heights are maintained. Mild heterogeneous bone marrow signal without a focal lesion on the STIR sequence is nonspecific. T1 and T2 hyperintense lesion within the L4 vertebral body is compatible with a hemangioma. There is desiccated disc signal throughout the lower thoracic and lumbar spine. There is osseous fusion across the disc space at L4-L5. The conus terminates at L1. Paraspinal soft tissues are unremarkable. Fatty atrophy of the lower paraspinal muscles. Evaluation by level: T12-L1: Disc bulge and facet arthrosis. No spinal canal stenosis. Mild neural foraminal stenosis. L1-L2: Disc bulge and facet arthrosis. Mild spinal canal stenosis. Mild neural foraminal stenosis. L2-L3: Disc bulge, facet arthrosis and ligamentum flavum thickening. Moderate spinal canal stenosis, narrowing of the subarticular recess and mhsm-fs-filhqqog bilateral neural foraminal stenosis. L3-L4: Disc bulge, facet arthrosis and ligamentum flavum thickening. Severe spinal canal stenosis. Moderate bilateral neural foraminal stenosis. L4-L5: Disc bulge, facet arthrosis and ligamentum flavum thickening. Moderate to severe spinal canal and neural foraminal stenosis. L5-S1: Disc bulge and facet arthrosis. No spinal canal stenosis. Moderate bilateral neural foraminal stenosis. IMPRESSION: Multilevel degenerative disc disease and facet arthrosis most pronounced at L3-L4 with severe spinal canal and moderate bilateral neural foraminal stenosis. Mildly heterogeneous bone marrow signal is nonspecific. There is a hemangioma within the L4 vertebral body. Otherwise no focal lesion within the lumbar spine. I personally reviewed the images/study and I agree with the findings as stated. This study was interpreted at [place], [place]. MACRO: None Signed by: Lynda Bal 11/06/2023 1:29 PM Dictation workstation: [id number] [facility] MR THORACIC SPINE W AND WO I V CONTRASTon 11-06-2023 MR THORACIC SPINE W AND WO IV CONTRAST Interpreted By: Lynda Bal, STUDY: MR THORACIC SPINE W AND WO IV CONTRAST; 11/06/2023 12:58 pm INDICATION: Signs/Symptoms:Abnormal thoracic CT scan, cancer staging. COMPARISON: None. ACCESSION NUMBER(S): [id number] ORDERING CLINICIAN: VERA HUANG TECHNIQUE: Sagittal T1, T2, STIR and axial T2 and T1 weighted MR images of the thoracic spine were obtained. FINDINGS: Counting was performed from the C2 vertebral body on the integrated logistics programs director image. Alignment: There is slightly exaggerated thoracic kyphosis. Alignment is otherwise maintained. Vertebrae/Intervertebral Discs: Vertebral body heights are maintained. There is diffuse T1 hypointense STIR hyperintense signal throughout the T6, T7 in the majority of the T8 vertebral bodies. The bone marrow is otherwise mildly heterogeneous without a focal lesion on the STIR sequence. There is increased signal within the disc spaces at T6-T7 and T7-T8 with irregularity of the endplates, T6-T7> T7-T8. Otherwise there is desiccated disc signal throughout the thoracic spine with mild degenerative endplate changes and jmcn-bp-stkbcmft disc height loss. There is prevertebral infiltration extending from T6 through T8. There is paraspinal infiltration at T6 through T8. There are multiple small subcentimeter rim enhancing collections within the paraspinal soft tissues suggesting small at the T6 through T8 levels. There is greater than expected enhancement within the epidural space extending from T6 through T9 suggesting reactive change and or phlegmon. This results in severe spinal canal stenosis at T6 through T8. Cord: Questionable increased cord signal on the STIR sequence at T6 through T8. The thoracic cord is otherwise unremarkable. C7-T1 through T4-T5: Degenerative changes without significant spinal canal stenosis and varying degrees of mild neural foraminal narrowing. T5-T6: Degenerative changes and prominent posterior epidural fat results in moderate spinal canal and neural foraminal stenosis. At T6-T7 and T7-T8 there are degenerative changes as well as enhancement within the epidural space resulting in severe spinal canal stenosis. Moderate neural foraminal narrowing at T6-T7 and T7-T8. T8-T9: Degenerative changes with moderate to severe spinal canal and ponn-kk-nwlzwelr bilateral neural foraminal stenosis. T9-T10, T10-T11: Degenerative changes without significant spinal canal or neural foraminal stenosis. T11-T12: Disc bulge, facet arthrosis and ligamentum flavum thickening. Moderate to severe spinal canal and neural foraminal stenosis. T12-L1: Disc bulge and facet arthrosis. No spinal canal stenosis. Mild neural foraminal stenosis. There is a subcentimeter T2 hyperintense nodule within the right thyroid lobe. IMPRESSION: There is abnormal signal within the disc spaces at T6-T7 and T7-T8 as well as abnormal signal throughout the T6 and T7 vertebral bodies and the majority of the T8 vertebral body suggesting discitis osteomyelitis at these levels. There is prevertebral and paraspinal infiltration with multiple subcentimeter T1 hypointense and rim enhancing collections within the paraspinal soft tissues suggesting small abscesses. There is greater than expected enhancement within the epidural space extending from T6 through T9 suggesting phlegmon. This results in severe spinal canal stenosis at these levels. Question subtle increased cord signal on the STIR sequence. MACRO: None Signed by: Lynda Bal 11/06/2023 1:24 PM Dictation workstation: [id number] Normal [facility] Troponin I.cardiac panelon 0 11-06-2023 Tropinin I.cardiac panel High sensitivity method 9 ng/L Normal 0-13 [facility] Comment on above: Order Comment: Less than 99th percentile of normal range cutoff-Female and children under 18 years old <14 ng/L; Male <21 ng/L: NegativeRepeat testing should be performed if clinically indicated.Female and children under 18 years old 14-50 ng/L; Male 21-50 ng/L:Consistent with possible cardiac damage and possible increased clinicalrisk. Serial measurements may help to assess extent of myocardial damage.>50 ng/L: Consistent with cardiac damage, increased clinical risk andmyocardial infarction. Serial measurements may help assess extent ofmyocardial damage.NOTE: Children less than 1 year old may have higher baseline troponinlevels and results should be interpreted in conjunction with the overallclinical context.NOTE: Troponin I testing is performed using a differenttesting methodology at [facility] than at [facility]. Direct result comparisons should onlybe made within the same method. Performed By: #### 2 4321-2 #### OMERO KNIGHT ([id number]) [facility] ([facility]) [address] [place], [place] [id number] Urinalysis complete W Reflex Culture panel (U)on 11-06-2023 Appearance (U) Turbid Normal Clear [facility] Comment on above: Performed By: #### 8 9577-1 #### OMERO KNIGHT ([id number]) [facility] ([facility]) [address] [place] [address] Bilirubin (U) [Mass/Vol] Negative Normal NEGATIVE [facility] Comment on above: Performed By: #### 8 9577-1 #### OMERO KNIGHT ([id number]) [facility] ([facility]) [address] [place] [address] Color (U) Yellow Normal Light-Yellow , Yellow, Dark-Yellow [facility] Comment on above: Performed By: #### 8 9577-1 #### OMERO KNIGHT ([id number]) [facility] ([facility]) [address] [place] [address] Glucose Auto test strip (U) [Mass/Vol] Normal Normal Normal [facility] Comment on above: Performed By: #### 8 9577-1 #### OMERO KNIGHT ([id number]) [facility] ([facility]) [address] [place] [address] Ketones (U) [Mass/Vol] Negative Normal NEGATIVE [facility] Comment on above: Performed By: #### 8 9577-1 #### OMERO KNIGHT ([id number]) [facility] ([facility]) [address] [place] [address] Leukocyte esterase Auto test strip Ql (U) 75 Ray/???L Abnormal NEGATIVE [facility] Comment on above: Performed By: #### 8 9577-1 #### OMERO KNIGHT ([id number]) [facility] ([facility]) [address] [place] [address] Nitrite Auto test strip Ql (U) Negative Normal NEGATIVE [facility] Comment on above: Performed By: #### 8 9577-1 #### OMERO KNIGHT ([id number]) [facility] ([facility]) [address] [place] [address] pH (U) 5.5 [pH] Normal 5.0, 5.5, 6.0, 6.5, 7.0, 7.5, 8.0 [facility] Comment on above: Performed By: #### 8 9577-1 #### OMERO KNIGHT ([id number]) [facility] ([facility]) [address] [place] [address] Protein (U) [Mass/Vol] 20 (TRACE) Normal NEGAT JORGE, 10 (TRACE), 20 (TRACE) [facility] Comment on above: Performed By: #### 8 9577-1 #### OMERO KNIGHT ([id number]) [facility] ([facility]) [address] [place] [address] RBC (U) [#/Vol] 0.1 (1+) Abnormal NEGATIVE [facility] Comment on above: Performed By: #### 8 9577-1 #### OMERO KNIGHT ([id number]) [facility] ([facility]) [address] [place] [address] Specific gravity (U) [Rel density] 1.029 Normal 1.005-1.035 [facility] Comment on above: Performed By: #### 8 9577-1 #### OMERO KNIGHT ([id number]) [facility] ([facility]) [address] [place] [address] Urobilinogen (U) [Mass/Vol] 3 (1+) Abnormal Normal [facility] Comment on above: Result Comment: Some pigments and medications may cause a false positive urobilinogen. Performed By: #### 8 9577-1 #### OMERO KNIGHT ([id number]) [facility] ([facility]) [address] [place] [address] Urinalysis microscopic panel Auto Ql (U)on 11-06-2023 Bacteria Auto (Urine sed) [#/Area] 1+ /HPF Abnormal NONE SEEN [facility] Comment on above: Performed By: #### 2 4321-2 #### OMERO KNIGHT ([id number]) [facility] ([facility]) [address] [place] [address] Crystals.amorphous Computer assisted (U) [#/Area] 1+ /HPF Normal NONE, 1+, 2+ [facility] Comment on above: Performed By: #### 2 4321-2 #### OMERO KNIGHT ([id number]) [facility] ([facility]) [address] [place] [address] Epithelial cells.squamous Auto (Urine sed) [#/Area] 1-9 (SPARSE) Normal Reference range not established. [facility] Comment on above: Performed By: #### 2 4321-2 #### OMERO KNIGHT ([id number]) [facility] ([facility]) [address] [place] [address] Mucus Auto (Urine sed) [#/Area] FEW Normal Reference range not established. [facility] Comment on above: Performed By: #### 2 4321-2 #### OMERO KNIGHT ([id number]) [facility] ([facility]) [address] [place] [address] RBC Auto (Urine sed) [#/Area] 3-5 Normal NONE, 1-2, 3-5 [facility] Comment on above: Performed By: #### 2 4321-2 #### OMERO KNIGHT ([id number]) [facility] ([facility]) [address] [place], [place] [id number] WBC Auto (Urine sed) [#/Area] 1-5 Normal 1-5, NONE [facility] Comment on above: Performed By: #### 2 4321-2 #### OMERO KNIGHT ([id number]) [facility] ([facility]) [address] [place] [address] Basic Metabolic Profile (BMP )on 10-22-2023 BUN/CRE 36.6 RATIO High 10-20 [facility] Comment on above: Performed By: #### L 500.2500, L100.0500 ####[facility] [address] [place], [address] CA,Total 9.7 mg/dL Normal 8.5-10.1 [facility] Comment on above: Performed By: #### L 500.2500, L100.0500 ####[facility] [address] [place], [address] Chloride [Moles/Vol] 96 mmol/L Low 98-107 [facility] Comment on above: Performed By: #### L 500.2500, L100.0500 ####[facility] [address] [place], [address] CO2 [Moles/Vol] 30.0 mmol/L Normal 21.0-32.0 [facility] Comment on above: Performed By: #### L 500.2500, L100.0500 ####[facility] [address] [place], [address] Creatinine [Mass/Vol] 1.01 mg/dL Normal 0.55-1.02 [facility] Comment on above: Result Comment: The validity of the calculated GFR GFRAA in patients over70 years has not been determined. Clinical correlation isessential. Performed By: #### L 500.2500, L100.0500 ####[facility] [address] [place], [address] EST GFR - AA 69 mL/min Normal >60 [facility] Comment on above: Result Comment: Afri can Martiniquais GFR Calc Performed By: #### L 500.2500, L100.0500 ####[facility] [address] [place], [address] GAP 5 Normal 5-15 [facility] Comment on above: Performed By: #### L 500.2500, L100.0500 ####[facility] [address] [place], [address] GFR/1.73 sq M.predicted among non-blacks MDRD (S/P/Bld) [Vol rate/Area] 57 mL/min/{1.73_m2} Low >60 [facility] Comment on above: Result Comment: Non- GFR Calc Performed By: #### L 500.2500, L100.0500 ####[facility] [address] [place], [address] Glucose [Mass/Vol] 148 mg/dL High 74-106 [facility] Comment on above: Result Comment: Fast ing Glucose result greater than or equal to 126 mg/dLsuggests DIABETES MELLITUS per A.D.A. criteria. Performed By: #### L 500.2500, L100.0500 ####[facility] [address] [place], [address] Potassium [Moles/Vol] 5.5 mmol/L High 3.5-5.1 [facility] Comment on above: Performed By: #### L 500.2500, L100.0500 ####[facility] [address] [place], [address] Sodium [Moles/Vol] 131 mmol/L Low 136-145 [facility] Comment on above: Performed By: #### L 500.2500, L100.0500 ####[facility] [address] [place], [address] Urea nitrogen [Mass/Vol] 37 mg/dL High 7-18 [facility] Comment on above: Performed By: #### L 500.2500, L100.0500 ####[facility] [address] [place], [address] CBC-Complete Blood Cnt No Di ffon 10-22-2023 Erythrocyte distribution width (RBC) [Ratio] 14.8 % High 11.6-14.6 [facility] Comment on above: Performed By: #### L 500.2500, L100.0500 ####[facility] [address] [place], [address] Hematocrit (Bld) [Volume fraction] 38.1 % Normal 37-47 [facility] Comment on above: Performed By: #### L 500.2500, L100.0500 ####[facility] [address] [place], [address] Hemoglobin (Bld) [Mass/Vol] 11.9 g/dL Low 12.0-15.0 [facility] Comment on above: Performed By: #### L 500.2500, L100.0500 ####[facility] [address] [place], [address] MCH (RBC) [Entitic mass] 26.6 pg Low 27.0-32.0 [facility] Comment on above: Performed By: #### L 500.2500, L100.0500 ####[facility] [address] [place], [address] MCHC (RBC) [Mass/Vol] 31.2 g/dL Low 32-36 [facility] Comment on above: Performed By: #### L 500.2500, L100.0500 ####[facility] [address] [place], [address] MCV (RBC) [Entitic vol] 85.0 fL Normal 81-99 [facility] Comment on above: Performed By: #### L 500.2500, L100.0500 ####[facility] [address] [place], [address] Platelet mean volume (Bld) [Entitic vol] 9.5 fL Normal 6.2-12.0 [facility] Comment on above: Performed By: #### L 500.2500, L100.0500 ####[facility] [address] [place], [address] Platelets (Bld) [#/Vol] 324 10*3/uL Normal 150-450 [facility] Comment on above: Performed By: #### L 500.2500, L100.0500 ####[facility] [address] [place], [address] RBC (Bld) [#/Vol] 4.48 10*6/uL Normal 4.2-5.4 [facility] Comment on above: Performed By: #### L 500.2500, L100.0500 ####[facility] [address] [place], [address] RDW SD 45.2 fl High 35.1-43.9 [facility] Comment on above: Performed By: #### L 500.2500, L100.0500 ####[facility] [address] [place], [address] WBC (Bld) [#/Vol] 18.9 10*3/uL High 4.4-11.0 [facility] Comment on above: Performed By: #### L 500.2500, L100.0500 ####[facility] [address] [place], [address] Basic Metabolic Profile (BMP )on 10-16-2023 BUN/CRE 25.5 RATIO High 10-20 [facility] Comment on above: Order Comment: 216-1 Performed By: #### L 500.4100, L501.9985, L500.2500, L100.0500 ####[facility] [address] [place], [address] CA,Total 8.9 mg/dL Normal 8.5-10.1 [facility] Comment on above: Order Comment: 216-1 Performed By: #### L 500.4100, L501.9985, L500.2500, L100.0500 ####[facility] [address] [place], [address] Chloride [Moles/Vol] 95 mmol/L Low 98-107 [facility] Comment on above: Order Comment: 216-1 Performed By: #### L 500.4100, L501.9985, L500.2500, L100.0500 ####[facility] [address] [place], [address] CO2 [Moles/Vol] 25.0 mmol/L Normal 21.0-32.0 [facility] Comment on above: Order Comment: 216- Performed By: #### L 500.4100, L501.9985, L500.2500, L100.0500 ####[facility] [address] [place], [address] Creatinine [Mass/Vol] 0.70 mg/dL Normal 0.55-1.02 [facility] Comment on above: Order Comment: Result Comment: The validity of the calculated GFR GFRAA in patients over70 years has not been determined. Clinical correlation isessential. Performed By: #### L 500.4100, L501.9985, L500.2500, L100.0500 ####[facility] [address] [place], [address] EST GFR - AA 104 mL/min Normal >60 [facility] Comment on above: Order Comment: Result Comment: Afri can Martiniquais GFR Calc Performed By: #### L 500.4100, L501.9985, L500.2500, L100.0500 ####[facility] [address] [place], [address] GAP 10 Normal 5-15 [facility] Comment on above: Order Comment: - Performed By: #### L 500.4100, L501.9985, L500.2500, L100.0500 ####[facility] [address] [place], [address] GFR/1.73 sq M.predicted among non-blacks MDRD (S/P/Bld) [Vol rate/Area] 86 mL/min/{1.73_m2} Normal >60 [facility] Comment on above: Order Comment: 216-1 Result Comment: Non- GFR Calc Performed By: #### L 500.4100, L501.9985, L500.2500, L100.0500 ####[facility] [address] [place], [address] Glucose [Mass/Vol] 139 mg/dL High 74-106 [facility] Comment on above: Order Comment: 216- Result Comment: Fast ing Glucose result greater than or equal to 126 mg/dLsuggests DIABETES MELLITUS per A.D.A. criteria. Performed By: #### L 500.4100, L501.9985, L500.2500, L100.0500 ####[facility] [address] [place], [address] Potassium [Moles/Vol] 3.6 mmol/L Normal 3.5-5.1 [facility] Comment on above: Order Comment: 216-1 Performed By: #### L 500.4100, L501.9985, L500.2500, L100.0500 ####[facility] [address] [place], [address] Sodium [Moles/Vol] 130 mmol/L Low 136-145 [facility] Comment on above: Order Comment: 216-1 Performed By: #### L 500.4100, L501.9985, L500.2500, L100.0500 ####[facility] [address] [place], [address] Urea nitrogen [Mass/Vol] 18 mg/dL Normal 7-18 [facility] Comment on above: Order Comment: 216-1 Performed By: #### L 500.4100, L501.9985, L500.2500, L100.0500 ####[facility] [address] [place], [address] CBC-Complete Blood Cnt No Di ffon 10-16-2023 Erythrocyte distribution width (RBC) [Ratio] 14.5 % Normal 11.6-14.6 [facility] Comment on above: Performed By: #### L 500.4100, L501.9985, L500.2500, L100.0500 ####[facility] [address] [place], [address] Hematocrit (Bld) [Volume fraction] 36.7 % Low 37-47 [facility] Comment on above: Performed By: #### L 500.4100, L501.9985, L500.2500, L100.0500 ####[facility] [address] [place], [address] Hemoglobin (Bld) [Mass/Vol] 11.9 g/dL Low 12.0-15.0 [facility] Comment on above: Performed By: #### L 500.4100, L501.9985, L500.2500, L100.0500 ####[facility] [address] [place], [address] MCH (RBC) [Entitic mass] 26.6 pg Low 27.0-32.0 [facility] Comment on above: Performed By: #### L 500.4100, L501.9985, L500.2500, L100.0500 ####[facility] [address] [place], [address] MCHC (RBC) [Mass/Vol] 32.4 g/dL Normal 32-36 [facility] Comment on above: Performed By: #### L 500.4100, L501.9985, L500.2500, L100.0500 ####[facility] [address] [place], [address] MCV (RBC) [Entitic vol] 82.1 fL Normal 81-99 [facility] Comment on above: Performed By: #### L 500.4100, L501.9985, L500.2500, L100.0500 ####[facility] [address] [place], [address] Platelet mean volume (Bld) [Entitic vol] 9.6 fL Normal 6.2-12.0 [facility] Comment on above: Performed By: #### L 500.4100, L501.9985, L500.2500, L100.0500 ####[facility] [address] [place], [address] Platelets (Bld) [#/Vol] 280 10*3/uL Normal 150-450 [facility] Comment on above: Performed By: #### L 500.4100, L501.9985, L500.2500, L100.0500 ####[facility] [address] [place], [address] RBC (Bld) [#/Vol] 4.47 10*6/uL Normal 4.2-5.4 [facility] Comment on above: Performed By: #### L 500.4100, L501.9985, L500.2500, L100.0500 ####[facility] [address] [place], [address] RDW SD 43.2 fl Normal 35.1-43.9 [facility] Comment on above: Performed By: #### L 500.4100, L501.9985, L500.2500, L100.0500 ####[facility] [address] [place], [address] WBC (Bld) [#/Vol] 25.6 10*3/uL High 4.4-11.0 [facility] Comment on above: Performed By: #### L 500.4100, L501.9985, L500.2500, L100.0500 ####[facility] [address] [place], [address] Hemoglobin A1con 10-16-2023 HbA1c (Bld) [Mass fraction] 6.6 % High 3.8-5.6 [facility] Comment on above: Result Comment: Norm al < 5.7 % Prediabetic 5.7 - 6.4 % Diabetic >or= 6.5 % Please note range changes. Performed By: #### L 500.4100, L501.9985, L500.2500, L100.0500 ####[facility] [address] [place], [address] Lipid Profileon 10-16-2023 Cholesterol [Mass/Vol] 100 mg/dL Normal 200 [facility] Comment on above: Order Comment: Result Comment: <200 mg/dL Desirable 200-240 mg/dL Borderline >240 mg/dL High Risk Performed By: #### L 500.4100, L501.9985, L500.2500, L100.0500 ####[facility] [address] [place], [address] Cholesterol in HDL [Mass/Vol] 12 mg/dL Low [facility] Comment on above: Order Comment: Result Comment: The drugs N-Acetylcysteine and Metamizole may falselydepress this assay. Reference Range HDL <40 mg/dL Low HDL Cholesterol HDL >or= 60 mg/dL High HDL Cholesterol Performed By: #### L 500.4100, L501.9985, L500.2500, L100.0500 ####[facility] [address] [place], [address] Cholesterol in LDL [Mass/Vol] 68 mg/dL Normal 0-130 [facility] Comment on above: Order Comment: 216- Performed By: #### L 500.4100, L501.9985, L500.2500, L100.0500 ####[facility] [address] [place], [address] Cholesterol in VLDL [Mass/Vol] 20 mg/dL Normal 5-40 [facility] Comment on above: Order Comment: 216-1 Performed By: #### L 500.4100, L501.9985, L500.2500, L100.0500 ####[facility] [address] [place], [address] Triglyceride [Mass/Vol] 98 mg/dL Normal [facility] Comment on above: Order Comment: 216-1 Result Comment: The drugs N-Acetylcysteine and Metamizole may falselydepress this assay.Serum Triglycerides Reference Interval Normal <150 mg/dL Borderline high 150 - 199 mg/dL High 200 - 499 mg/dL Very High > or = 500 mg/dL Performed By: #### L 500.4100, L501.9985, L500.2500, L100.0500 ####[facility] [address] [place], [place], [address] Basic metabolic 2000 panelon 10-15-2023 Anion gap [Moles/Vol] 12 mmol/L 10 - 2 0 mmol/L [facility] Calcium [Mass/Vol] 8.6 mg/dL 8.6 - 10. 3 mg/dL [facility] Chloride [Moles/Vol] 92 mmol/L Low 98 - 10 7 mmol/L [facility] CO2 [Moles/Vol] 30 mmol/L 21 - 32 mmol/L [facility] Creatinine [Mass/Vol] 0.67 mg/dL 0.50 - 1.05 mg/dL [facility] eGFR - PINF [facility] Comment on above: Calculations of hannah mated GFR are performed using the 2020 CKD-EPI Study Refit equation without the race variable for the IDMS-Traceable creatinine methods. https://jasn.asnjournals.org/content/early/ASN.45269 84568 Glucose [Mass/Vol] 170 mg/dL High 74 - 99 mg/dL [facility] Interpretation and review of laboratory results Abnormal [facility] Potassium [Moles/Vol] 3.7 mmol/L 3.5 - 5.3 mmol/L [facility] Sodium [Moles/Vol] 130 mmol/L Low 136 - 145 mmol/L [facility] Comment on above: Reviewed previous re sults Urea nitrogen [Mass/Vol] 19 mg/dL 6 - 23 mg/dL [facility] Anion gap [Moles/Vol] 12 mmol/L Normal 10-20 [facility] Comment on above: Performed By: #### 8 9577-1 #### OMERO KNIGHT ([id number]) [facility] ([facility]) [facility] [place] [address] Calcium [Mass/Vol] 8.6 mg/dL Normal 8.6-10.3 [facility] Comment on above: Performed By: #### 8 9577-1 #### OMERO KNIGHT ([id number]) [facility] ([facility]) [address] [place] [address] 67421 Chloride [Moles/Vol] 92 mmol/L Low 98-107 [facility] Comment on above: Performed By: #### 8 9577-1 #### OMERO KNIGHT ([id number]) [facility] ([facility]) [address] [place] [address]85 CO2 [Moles/Vol] 30 mmol/L Normal 21-32 [facility] Comment on above: Performed By: #### 8 9577-1 #### OMERO KNIGHT ([id number]) [facility] ([facility]) [address] [place] [address]76 Creatinine [Mass/Vol] 0.67 mg/dL Normal 0.50-1.05 [facility] Comment on above: Performed By: #### 8 9577-1 #### OEMRO KNIGHT ([id number]) [facility] ([facility]) [address] [place] [address] 79104 GFR/1.73 sq M.predicted MDRD (S/P/Bld) [Vol rate/Area] mL/min/{1.73_m2} Normal >60 [facility] Comment on above: Result Comment: Calc ulations of estimated GFR are performed using the 2020 CKD-EPI Study Refit equation without the race variable for the IDMS-Traceable creatinine methods. https://jasn.asnjournals.org/content//ASN.17408 68087 Performed By: #### 8 9577-1 #### OMERO KNIGHT ([id number]) [facility] ([facility]) [address] [place] [address] 65964 Glucose [Mass/Vol] 170 mg/dL High 74-99 [facility] Comment on above: Performed By: #### 8 9577-1 #### OMERO KNIGHT ([id number]) [facility] ([facility]) [address] [place] [address] 82924 Potassium [Moles/Vol] 3.7 mmol/L Normal 3.5-5.3 [facility] Comment on above: Performed By: #### 8 9577-1 #### OMERO KNIGHT ([id number]) [facility] ([facility]) [address] [place] [address] 10647 Sodium [Moles/Vol] 130 mmol/L Low 136-145 [facility] Comment on above: Result Comment: Revi ewed previous results Performed By: #### 8 9577-1 #### OMERO KNIGHT ([id number]) [facility] ([facility]) [address] [place] [address] 93429 Urea nitrogen [Mass/Vol] 19 mg/dL Normal 6-23 [facility] Comment on above: Performed By: #### 8 9577-1 #### OMERO KNIGHT ([id number]) [facility] ([facility]) [address] [place] [address] 80457 CBC panel Auto (Bld)on 10-14 Erythrocyte distribution width (RBC) [Ratio] 14.3 % 11.5 - 14.5 % [facility] Hematocrit (Bld) [Volume fraction] 40.4 % 36.0 - 46.0 % [facility] Hemoglobin (Bld) [Mass/Vol] 12.9 g/dL 12.0 - 16.0 g/dL [facility] Interpretation and review of laboratory results Abnormal [facility] MCH (RBC) [Entitic mass] 26.7 pg 26.0 - 34.0 pg [facility] MCHC (RBC) [Mass/Vol] 31.9 g/dL Low 32.0 - 36.0 g/dL [facility] MCV (RBC) [Entitic vol] 84 fL 80 - 100 fL [facility] Nucleated RBC/100 WBC (Bld) [Ratio] 0.0 % [facility] Platelets (Bld) [#/Vol] 275 10*3/uL [facility] RBC (Bld) [#/Vol] 4.83 10*6/uL Un[facility] WBC (Bld) [#/Vol] 15.1 10*3/uL [facility] Erythrocyte distribution width (RBC) [Ratio] 14.3 % Normal 11.5-14.5 [facility] Comment on above: Performed By: #### 8 9577-1 #### OMERO KNIGHT ([id number]) [facility] ([facility]) [address] [place] [address] 58033 Hematocrit (Bld) [Volume fraction] 40.4 % Normal 36.0-46.0 [facility] Comment on above: Performed By: #### 8 9577-1 #### OMERO KNIGHT ([id number]) [facility] ([facility]) [address] [place] [address] 40549 Hemoglobin (Bld) [Mass/Vol] 12.9 g/dL Normal 12.0-16.0 [facility] Comment on above: Performed By: #### 8 9577-1 #### OMERO KNIGHT ([id number]) [facility] ([facility]) [address] [place] [address] 00606 MCH (RBC) [Entitic mass] 26.7 pg Normal 26.0-34.0 [facility] Comment on above: Performed By: #### 8 9577-1 #### OMERO KNIGHT ([id number]) [facility] ([facility]) [address] [place] [address] 74159 MCHC (RBC) [Mass/Vol] 31.9 g/dL Low 32.0-36.0 [facility] Comment on above: Performed By: #### 8 9577-1 #### OMERO KNIGHT ([id number]) [facility] ([facility]) [address] [place] [address] 29551 MCV (RBC) [Entitic vol] 84 fL Normal 80-100 [facility] Comment on above: Performed By: #### 8 9577-1 #### OMERO KNIGHT ([id number]) [facility] ([facility]) [address] [place] [address] 81326 Nucleated RBC/100 WBC (Bld) [Ratio] 0.0 /100 WBCs Normal 0.0-0.0 [facility] Comment on above: Performed By: #### 8 9577-1 #### OMERO KNIGHT ([id number]) [facility] ([facility]) [address] [place] [address] 30372 Platelets (Bld) [#/Vol] 275 x10*3/uL Normal 150-450 [facility] Comment on above: Performed By: #### 8 9577-1 #### OMERO KNIGHT ([id number]) [facility] ([facility]) [address] [place], [place] [address] RBC (Bld) [#/Vol] 4.83 x10*6/uL Normal 4.00-5.20 [facility] Comment on above: Performed By: #### 8 9577-1 #### OMERO KNIGHT ([id number]) [facility] ([facility]) [address] [place] [address] 58145 WBC (Bld) [#/Vol] 15.1 x10*3/uL High 4.4-11.3 [facility] Comment on above: Performed By: #### 8 9577-1 #### OMERO KNIGHT ([id number]) [facility] ([facility]) [address] [place] [address] 34104 Glucose Test strip manual (B ld) [Mass/Vol]on 10-15-2023 Glucose [Mass/Vol] 141 mg/dL High 74 - 99 mg/dL [facility] Interpretation and review of laboratory results Abnormal [facility] Glucose [Mass/Vol] 141 mg/dL High 74-99 [facility] Comment on above: Performed By: #### 8 9577-1 #### OMERO KNIGHT ([id number]) [facility] ([facility]) [address] [place] [address] Glucose [Mass/Vol] 225 mg/dL High 74 - 99 mg/dL [facility] Interpretation and review of laboratory results Abnormal [facility] Glucose [Mass/Vol] 225 mg/dL High 74-99 [facility] Comment on above: Performed By: #### 8 9577-1 #### OMERO KNIGHT ([id number]) [facility] ([facility]) [address] [place] [address] Glucose [Mass/Vol] 156 mg/dL High 74 - 99 mg/dL [facility] Interpretation and review of laboratory results Abnormal [facility] Glucose [Mass/Vol] 156 mg/dL High 74-99 [facility] Comment on above: Performed By: #### 8 9577-1 #### OMERO KNIGHT ([id number]) [facility] ([facility]) [address] [place] [address] Basic metabolic 2000 panelon 10-14-2023 Anion gap [Moles/Vol] 12 mmol/L 10 - 2 0 mmol/L [facility] Calcium [Mass/Vol] 8.7 mg/dL 8.6 - 10. 3 mg/dL [facility] Chloride [Moles/Vol] 93 mmol/L Low 98 - 10 7 mmol/L [facility] CO2 [Moles/Vol] 27 mmol/L 21 - 32 mmol/L [facility] Creatinine [Mass/Vol] 0.66 mg/dL 0.50 - 1.05 mg/dL [facility] eGFR - PINF [facility] Comment on above: Calculations of hannah mated GFR are performed using the 2020 CKD-EPI Study Refit equation without the race variable for the IDMS-Traceable creatinine methods. https://jasn.asnjournals.org/content//ASN.05595 51480 Glucose [Mass/Vol] 177 mg/dL High 74 - 99 mg/dL [facility] Interpretation and review of laboratory results Abnormal [facility] Potassium [Moles/Vol] 3.7 mmol/L 3.5 - 5.3 mmol/L [facility] Sodium [Moles/Vol] 128 mmol/L Low 136 - 145 mmol/L [facility] Comment on above: Reviewed previous re sults Urea nitrogen [Mass/Vol] 25 mg/dL High 6 - 23 mg/dL [facility] Anion gap [Moles/Vol] 12 mmol/L Normal 10-20 [facility] Comment on above: Performed By: #### 2 4321-2 ####OMERO KNIGHT ([id number])[facility] ([facility])[address] [place] [address] 50133 Calcium [Mass/Vol] 8.7 mg/dL Normal 8.6-10.3 [facility] Comment on above: Performed By: #### 2 4321-2 ####OMERO KNIGHT ([id number])[facility] ([facility])[address] [place] [address] 27486 Chloride [Moles/Vol] 93 mmol/L Low 98-107 [facility] Comment on above: Performed By: #### 2 4321-2 ####OMERO KNIGHT ([id number])[facility] ([facility])[address] [place] [address] 24915 CO2 [Moles/Vol] 27 mmol/L Normal 21-32 [facility] Comment on above: Performed By: #### 2 4321-2 ####OMERO KNIHGT ([id number])[facility] ([facility])[address] [place] [address] 33463 Creatinine [Mass/Vol] 0.66 mg/dL Normal 0.50-1.05 [facility] Comment on above: Performed By: #### 2 4321-2 ####OMERO KNIGHT ([id number])[facility] ([facility])[address] [place] [address] 71348 GFR/1.73 sq M.predicted MDRD (S/P/Bld) [Vol rate/Area] mL/min/{1.73_m2} Normal >60 [facility] Comment on above: Result Comment: Calc ulations of estimated GFR are performed using the 2020 CKD-EPI Study Refit equation without the race variable for the IDMS-Traceable creatinine methods. https://jasn.asnjournals.org/content//ASN.33935 55013 Performed By: #### 2 4321-2 ####OMERO KNIGHT ([id number])[facility] ([facility])[address] [place] [address] 11083 Glucose [Mass/Vol] 177 mg/dL High 74-99 [facility] Comment on above: Performed By: #### 2 4321-2 ####OMERO KNIGHT ([id number])[facility] ([facility])[address] [place] [address] 27753 Potassium [Moles/Vol] 3.7 mmol/L Normal 3.5-5.3 [facility] Comment on above: Performed By: #### 2 4321-2 ####OMERO KNIGHT ([id number])[facility] ([facility])[address] [place] [address] 63496 Sodium [Moles/Vol] 128 mmol/L Low 136-145 [facility] Comment on above: Result Comment: Revi ewed previous results Performed By: #### 2 4321-2 ####OMERO KNIGHT ([id number])[facility] ([facility])[address] [place] [address] 98473 Urea nitrogen [Mass/Vol] 25 mg/dL High 6-23 [facility] Comment on above: Performed By: #### 2 4321-2 ####OMERO KNIGHT ([id number])[facility] ([facility])[address] [place] [address] 19659 CBC panel Auto (Bld)on 10-13 Erythrocyte distribution width (RBC) [Ratio] 14.4 % 11.5 - 14.5 % [facility] Hematocrit (Bld) [Volume fraction] 38.0 % 36.0 - 46.0 % [facility] Hemoglobin (Bld) [Mass/Vol] 12.3 g/dL 12.0 - 16.0 g/dL [facility] Interpretation and review of laboratory results Abnormal [facility] MCH (RBC) [Entitic mass] 26.7 pg 26.0 - 34.0 pg [facility] MCHC (RBC) [Mass/Vol] 32.4 g/dL 32.0 - 36.0 g/dL [facility] MCV (RBC) [Entitic vol] 82 fL 80 - 100 fL [facility] Nucleated RBC/100 WBC (Bld) [Ratio] 0.0 % [facility] Platelets (Bld) [#/Vol] 299 10*3/uL [facility] RBC (Bld) [#/Vol] 4.61 10*6/uL Un[facility] WBC (Bld) [#/Vol] 14.2 10*3/uL High Unive [facility] Erythrocyte distribution width (RBC) [Ratio] 14.4 % Normal 11.5-14.5 [facility] Comment on above: Performed By: #### 5 8410-2 ####OMERO KNIGHT ([id number])[facility] ([facility])[address] [place] [address] 71654 Hematocrit (Bld) [Volume fraction] 38.0 % Normal 36.0-46.0 [facility] Comment on above: Performed By: #### 5 8410-2 ####OMERO KNIGHT ([id number])[facility] ([facility])[address] [place] [address] 88152 Hemoglobin (Bld) [Mass/Vol] 12.3 g/dL Normal 12.0-16.0 [facility] Comment on above: Performed By: #### 5 8410-2 ####OMERO KNIGHT ([id number])[facility] ([facility])[address] [place] [address] 20675 MCH (RBC) [Entitic mass] 26.7 pg Normal 26.0-34.0 [facility] Comment on above: Performed By: #### 5 8410-2 ####OMERO KNIGHT ([id number])[facility] ([facility])[address] [place] [address] 47990 MCHC (RBC) [Mass/Vol] 32.4 g/dL Normal 32.0-36.0 [facility] Comment on above: Performed By: #### 5 8410-2 ####OMERO KNIGHT ([id number])[facility] ([facility])[address] [place], [place] [address] MCV (RBC) [Entitic vol] 82 fL Normal 80-100 [facility] Comment on above: Performed By: #### 5 8410-2 ####OMERO KNIGHT ([id number])[facility] ([facility])[address] [place] [address] Nucleated RBC/100 WBC (Bld) [Ratio] 0.0 /100 WBCs Normal 0.0-0.0 [facility] Comment on above: Performed By: #### 5 8410-2 ####OMERO KNIGHT (81957)[facility] ([facility])[address] [place] [address] 50164 Platelets (Bld) [#/Vol] 299 x10*3/uL Normal 150-450 [facility] Comment on above: Performed By: #### 5 8410-2 ####OMERO KNIGHT (51531)[facility] ([facility])[address] [place] [address] RBC (Bld) [#/Vol] 4.61 x10*6/uL Normal 4.00-5.20 [facility] Comment on above: Performed By: #### 5 8410-2 ####OMERO KNIGHT ([id number])[facility] ([facility])[address] [place] [address] 28611 WBC (Bld) [#/Vol] 14.2 x10*3/uL High 4.4-11.3 [facility] Comment on above: Performed By: #### 5 8410-2 ####OMERO KNIGHT ([id number])[facility] ([address] [address] Glucose Test strip manual (B ld) [Mass/Vol]on 10-14-2023 Glucose [Mass/Vol] 159 mg/dL High 74 - 99 mg/dL [facility] Interpretation and review of laboratory results Abnormal [facility] Glucose [Mass/Vol] 159 mg/dL High 74-99 [facility] Comment on above: Performed By: #### 8 9577-1 #### OMERO KNIGHT ([id number]) [facility] ([facility]) [address] [place] [address] 96809 Glucose [Mass/Vol] 201 mg/dL High 74 - 99 mg/dL [facility] Interpretation and review of laboratory results Abnormal [facility] Glucose [Mass/Vol] 201 mg/dL High 74-99 [facility] Comment on above: Performed By: #### 8 9577-1 #### OMERO KNIGHT ([id number]) [facility] ([facility]) [address] [place] [address] 54418 Glucose [Mass/Vol] 154 mg/dL High 74 - 99 mg/dL [facility] Interpretation and review of laboratory results Abnormal [facility] Glucose [Mass/Vol] 154 mg/dL High 74-99 [facility] Comment on above: Performed By: #### 8 9577-1 #### OMERO KNIGHT ([id number]) [facility] ([facility]) [address] [place] [address] 53379 Glucose [Mass/Vol] 179 mg/dL High 74 - 99 mg/dL [facility] Interpretation and review of laboratory results Abnormal [facility] Glucose [Mass/Vol] 179 mg/dL High 74-99 [facility] Comment on above: Performed By: #### 2 341-6 ####OMERO KNIGHT ([id number])[facility] ([facility])[address] [place] [address] 54502 Basic metabolic 2000 panelon 10-13-2023 Anion gap [Moles/Vol] 13 mmol/L 10 - 2 0 mmol/L [facility] Calcium [Mass/Vol] 8.7 mg/dL 8.6 - 10. 3 mg/dL [facility] Chloride [Moles/Vol] 94 mmol/L Low 98 - 10 7 mmol/L [facility] CO2 [Moles/Vol] 26 mmol/L 21 - 32 mmol/L [facility] Creatinine [Mass/Vol] 0.75 mg/dL 0.50 - 1.05 mg/dL [facility] GFR/1.73 sq M.predicted among non-blacks MDRD (S/P/Bld) [Vol rate/Area] 83 mL/min/{1.73_m2} - PINF [facility] Comment on above: Calculations of hannah mated GFR are performed using the 2020 CKD-EPI Study Refit equation without the race variable for the IDMS-Traceable creatinine methods. https://jasn.asnjournals.org/content//ASN.35636 69826 Glucose [Mass/Vol] 186 mg/dL High 74 - 99 mg/dL [facility] Interpretation and review of laboratory results Abnormal [facility] Potassium [Moles/Vol] 4.0 mmol/L 3.5 - 5.3 mmol/L [facility] Sodium [Moles/Vol] 129 mmol/L Low 136 - 145 mmol/L [facility] Urea nitrogen [Mass/Vol] 32 mg/dL High 6 - 23 mg/dL [facility] Anion gap [Moles/Vol] 13 mmol/L Normal 10-20 [facility] Comment on above: Performed By: #### 2 4321-2 ####OMERO KNIGHT ([id number])[facility] ([facility] [place] [address] Calcium [Mass/Vol] 8.7 mg/dL Normal 8.6-10.3 [facility] Comment on above: Performed By: #### 2 4321-2 ####OMERO KNIGHT ([id number])[facility] ([facility])[address] [place] [address] Chloride [Moles/Vol] 94 mmol/L Low 98-107 Good [facility] Comment on above: Performed By: #### 2 4321-2 ####OMERO KNIGHT ([id number])[facility] ([facility])[address] [place] [address] 84706 CO2 [Moles/Vol] 26 mmol/L Normal 21-32 [facility] Comment on above: Performed By: #### 2 4321-2 ####OMERO KNIGHT ([id number])[facility] ([facility])[address] [place] [address] 98684 Creatinine [Mass/Vol] 0.75 mg/dL Normal 0.50-1.05 [facility] Comment on above: Performed By: #### 2 4321-2 ####OMERO KNIGHT ([id number])[facility] ([facility])[address] [place] [address] 94590 Glomerular filtration rate/1.73 sq M.predicted 83 mL/min/1.73m*2 Normal >60 [facility] Comment on above: Result Comment: Calc ulations of estimated GFR are performed using the 2020 CKD-EPI Study Refit equation without the race variable for the IDMS-Traceable creatinine methods. https://jasn.asnjournals.org/content/early//ASN.44111 32062 Performed By: #### 2 4321-2 ####OMERO KNIGHT ([id number])[facility] ([facility])[address] [place] [address] 48267 Glucose [Mass/Vol] 186 mg/dL High 74-99 [facility] Comment on above: Performed By: #### 2 4321-2 ####OMERO KNIGHT ([id number])[facility] ([facility])[address] [place] [address] 15950 Potassium [Moles/Vol] 4.0 mmol/L Normal 3.5-5.3 [facility] Comment on above: Performed By: #### 2 4321-2 ####OMERO KNIGHT ([id number])[facility] ([facility])[address] [place] [address] [place] [address] Sodium [Moles/Vol] 129 mmol/L Low 136-145 [facility] Comment on above: Performed By: #### 2 4321-2 ####OMERO KNIGHT ([id number])[facility] ([facility] [place] [address] Urea nitrogen [Mass/Vol] 32 mg/dL High 6-23 [facility] Comment on above: Performed By: #### 2 4321-2 ####OMERO KNIGHT ([id number])[facility] ([facility] [place] [address] CBC panel Auto (Bld)on 10-12 Erythrocyte distribution width (RBC) [Ratio] 14.4 % 11.5 - 14.5 % [facility] Hematocrit (Bld) [Volume fraction] 38.0 % 36.0 - 46.0 % [facility] Hemoglobin (Bld) [Mass/Vol] 12.1 g/dL 12.0 - 16.0 g/dL [facility] Interpretation and review of laboratory results Abnormal [facility] MCH (RBC) [Entitic mass] 26.5 pg 26.0 - 34.0 pg [facility] MCHC (RBC) [Mass/Vol] 31.8 g/dL Low 32.0 - 36.0 g/dL [facility] MCV (RBC) [Entitic vol] 83 fL 80 - 100 fL [facility] Nucleated RBC/100 WBC (Bld) [Ratio] 0.0 % [facility] Platelets (Bld) [#/Vol] 269 10*3/uL [facility] RBC (Bld) [#/Vol] 4.57 10*6/uL [facility] WBC (Bld) [#/Vol] 18.1 10*3/uL [facility] Erythrocyte distribution width (RBC) [Ratio] 14.4 % Normal 11.5-14.5 [facility] Comment on above: Performed By: #### 5 8410-2 ####OMERO KNIGHT ([id number])[facility] ([facility])[address] [place] [address] 41774 Hematocrit (Bld) [Volume fraction] 38.0 % Normal 36.0-46.0 [facility] Comment on above: Performed By: #### 5 8410-2 ####OMERO KNIGHT ([id number])[facility] ([facility])[address] [place] [address] 98171 Hemoglobin (Bld) [Mass/Vol] 12.1 g/dL Normal 12.0-16.0 [facility] Comment on above: Performed By: #### 5 8410-2 ####OMERO KNIGHT ([id number])[facility] ([facility])[address] [place] [address] 57233 MCH (RBC) [Entitic mass] 26.5 pg Normal 26.0-34.0 [facility] Comment on above: Performed By: #### 5 8410-2 ####OMERO KNIGHT ([id number])[facility] ([facility])[address] [place] [address] 11769 MCHC (RBC) [Mass/Vol] 31.8 g/dL Low 32.0-36.0 [facility] Comment on above: Performed By: #### 5 8410-2 ####OMERO KNIGHT ([id number])[facility] ([facility])[address] [place] [address] 19604 MCV (RBC) [Entitic vol] 83 fL Normal 80-100 [facility] Comment on above: Performed By: #### 5 8410-2 ####OMERO KNIGHT ([id number])[facility] ([facility])[address] [place] [address] 02040 Nucleated RBC/100 WBC (Bld) [Ratio] 0.0 /100 WBCs Normal 0.0-0.0 [facility] Comment on above: Performed By: #### 5 8410-2 ####OMERO KNIGHT ([id number])[facility] ([facility])[address] [place] [address] 63124 Platelets (Bld) [#/Vol] 269 x10*3/uL Normal 150-450 [facility] Comment on above: Performed By: #### 5 8410-2 ####OMERO KNIGHT ([id number])[facility] ([facility])[address] [place] [address] 73412 RBC (Bld) [#/Vol] 4.57 x10*6/uL Normal 4.00-5.20 [facility] Comment on above: Performed By: #### 5 8410-2 ####OMERO KNIGHT ([id number])[facility] ([facility])[address] [place] [address] 03004 WBC (Bld) [#/Vol] 18.1 x10*3/uL High 4.4-11.3 [facility] Comment on above: Performed By: #### 5 8410-2 ####OMERO KNIGHT ([id number])[facility] ([facility])[address] [place] [address] 97442 Glucose Test strip manual (B ld) [Mass/Vol]on 10-13-2023 Glucose [Mass/Vol] 168 mg/dL High 74 - 99 mg/dL [facility] Interpretation and review of laboratory results Abnormal [facility] Glucose [Mass/Vol] 168 mg/dL High 74-99 [facility] Comment on above: Performed By: #### 2 341-6 ####OMERO KNIGHT ([id number])[facility] ([facility])[address] [place] [address] 42168 Glucose [Mass/Vol] 192 mg/dL High 74 - 99 mg/dL [facility] Comment on above: RN/ NOTIFIED Interpretation and review of laboratory results Abnormal [facility] Glucose [Mass/Vol] 192 mg/dL High 74-99 [facility] Comment on above: Result Comment: RN/Shaheen Licea NOTIFIED Performed By: #### 2 341-6 ####OMERO KNIGHT ([id number])[facility] ([facility])[address] [place] [address] 28567 Glucose [Mass/Vol] 157 mg/dL High 74 - 99 mg/dL [facility] Interpretation and review of laboratory results Abnormal [facility] Glucose [Mass/Vol] 157 mg/dL High 74-99 [facility] Comment on above: Performed By: #### 2 341-6 ####OMERO KNIGHT ([id number])[facility] ([facility] [place] [address] Glucose [Mass/Vol] 167 mg/dL High 74 - 99 mg/dL [facility] Comment on above: RN/MD NOTIFIED Interpretation and review of laboratory results Abnormal [facility] Glucose [Mass/Vol] 167 mg/dL High 74-99 [facility] Comment on above: Result Comment: RN/Shaheen Licea NOTIFIED Performed By: #### 2 341-6 ####OMERO KNIGHT ([id number])[facility] ([facility])[address] [place] [address] 00366 Bacteria identified Cx Nom ( U)Ordered By: Heather Messer on 10-12-2023 Interpretation and review of laboratory results Abnormal [facility] Basic metabolic 2000 panelon 10-12-2023 Anion gap [Moles/Vol] 12 mmol/L 10 - 2 0 mmol/L [facility] Calcium [Mass/Vol] 9.1 mg/dL 8.6 - 10. 3 mg/dL [facility] Chloride [Moles/Vol] 93 mmol/L Low 98 - 10 7 mmol/L [facility] CO2 [Moles/Vol] 28 mmol/L 21 - 32 mmol/L [facility] Creatinine [Mass/Vol] 0.87 mg/dL 0.50 - 1.05 mg/dL [facility] GFR/1.73 sq M.predicted among non-blacks MDRD (S/P/Bld) [Vol rate/Area] 70 mL/min/{1.73_m2} - PINF [facility] Comment on above: Calculations of hannah mated GFR are performed using the 2020 CKD-EPI Study Refit equation without the race variable for the IDMS-Traceable creatinine methods. https://jasn.asnjournals.org/content/early/ASN.91364 09288 Glucose [Mass/Vol] 191 mg/dL High 74 - 99 mg/dL [facility] Interpretation and review of laboratory results Abnormal [facility] Potassium [Moles/Vol] 3.3 mmol/L Low 3.5 - 5.3 mmol/L [facility] Sodium [Moles/Vol] 130 mmol/L Low 136 - 145 mmol/L [facility] Urea nitrogen [Mass/Vol] 38 mg/dL High 6 - 23 mg/dL [facility] Anion gap [Moles/Vol] 12 mmol/L Normal 10-20 [facility] Comment on above: Performed By: #### 5 7021-8 #### OMERO KNIGHT ([id number]) [facility] ([facility]) [address] [place] [address] 95591 Calcium [Mass/Vol] 9.1 mg/dL Normal 8.6-10.3 [facility] Comment on above: Performed By: #### 5 7021-8 #### OMERO KNIGHT ([id number]) [facility] ([facility]) [address] [place] [address] 36814 Chloride [Moles/Vol] 93 mmol/L Low 98-107 [facility] Comment on above: Performed By: #### 5 7021-8 #### OMERO KNIGHT ([id number]) [facility] ([facility]) [facility] [place] [address] CO2 [Moles/Vol] 28 mmol/L Normal 21-32 [facility] Comment on above: Performed By: #### 5 7021-8 #### OMERO KNIGHT ([id number]) [facility] ([facility]) [address] [place] [address] 25340 Creatinine [Mass/Vol] 0.87 mg/dL Normal 0.50-1.05 [facility] Comment on above: Performed By: #### 5 7021-8 #### OMERO KNIGHT ([id number]) [facility] ([facility]) [address] [place] [address] 34921 Glomerular filtration rate/1.73 sq M.predicted 70 mL/min/1.73m*2 Normal >60 [facility] Comment on above: Result Comment: Calc ulations of estimated GFR are performed using the 2020 CKD-EPI Study Refit equation without the race variable for the IDMS-Traceable creatinine methods. https://jasn.asnjournals.org/content//ASN.08400 43991 Performed By: #### 5 7021-8 #### OMERO KNIGHT ([id number]) [facility] ([facility]) [address] [place] [address] 16978 Glucose [Mass/Vol] 191 mg/dL High 74-99 [facility] Comment on above: Performed By: #### 5 7021-8 #### OMERO KNIGHT ([id number]) [facility] ([facility]) [address] [place] [address] 48868 Potassium [Moles/Vol] 3.3 mmol/L Low 3.5-5.3 [facility] Comment on above: Performed By: #### 5 7021-8 #### OMERO KNIGHT ([id number]) [facility] ([facility]) [address] [place] [address] 66572 Sodium [Moles/Vol] 130 mmol/L Low 136-145 [facility] Comment on above: Performed By: #### 5 7021-8 #### OMERO KNIGHT ([id number]) [facility] ([facility]) [address] [place] [address] 57880 Urea nitrogen [Mass/Vol] 38 mg/dL High 6-23 [facility] Comment on above: Performed By: #### 5 7021-8 #### OMERO KNIGHT ([id number]) [facility] ([facility]) [address] [place] [address] 33340 CBC panel Auto (Bld)on 10-11 Erythrocyte distribution width (RBC) [Ratio] 14.2 % 11.5 - 14.5 % [facility] Hematocrit (Bld) [Volume fraction] 40.3 % 36.0 - 46.0 % [facility] Hemoglobin (Bld) [Mass/Vol] 13.0 g/dL 12.0 - 16.0 g/dL [facility] Interpretation and review of laboratory results Abnormal [facility] MCH (RBC) [Entitic mass] 26.7 pg 26.0 - 34.0 pg [facility] MCHC (RBC) [Mass/Vol] 32.3 g/dL 32.0 - 36.0 g/dL [facility] MCV (RBC) [Entitic vol] 83 fL 80 - 100 fL [facility] Nucleated RBC/100 WBC (Bld) [Ratio] 0.0 % [facility] Platelets (Bld) [#/Vol] 300 10*3/uL [facility] RBC (Bld) [#/Vol] 4.86 10*6/uL [facility] WBC (Bld) [#/Vol] 23.0 10*3/uL High [facility] Erythrocyte distribution width (RBC) [Ratio] 14.2 % Normal 11.5-14.5 [facility] Comment on above: Performed By: #### 5 7021-8 #### OMERO KNIGHT ([id number]) [facility] ([facility]) [address] [place] [address] Hematocrit (Bld) [Volume fraction] 40.3 % Normal 36.0-46.0 [facility] Comment on above: Performed By: #### 5 7021-8 #### OMERO KNIGHT ([id number]) [facility] ([facility]) [address] [place] [address] 64494 Hemoglobin (Bld) [Mass/Vol] 13.0 g/dL Normal 12.0-16.0 [facility] Comment on above: Performed By: #### 5 7021-8 #### OMERO KNIGHT ([id number]) [facility] ([facility]) [address] [place] [address] 83868 MCH (RBC) [Entitic mass] 26.7 pg Normal 26.0-34.0 [facility] Comment on above: Performed By: #### 5 7021-8 #### OMERO KNIGHT ([id number]) [facility] ([facility]) [address] [place] [address] 91315 MCHC (RBC) [Mass/Vol] 32.3 g/dL Normal 32.0-36.0 [facility] Comment on above: Performed By: #### 5 7021-8 #### OMERO KNIGHT ([id number]) [facility] ([facility]) [address] [place] [address] MCV (RBC) [Entitic vol] 83 fL Normal 80-100 [facility] Comment on above: Performed By: #### 7021-8 #### OMERO KNIGHT ([id number]) [facility] ([facility]) [address] [place] [address] Nucleated RBC/100 WBC (Bld) [Ratio] 0.0 /100 WBCs Normal 0.0-0.0 [facility] Comment on above: Performed By: #### 5 7021-8 #### OMERO KNIGHT ([id number]) [facility] ([facility]) [address] [place] [address] Platelets (Bld) [#/Vol] 300 x10*3/uL Normal 150-450 [facility] Comment on above: Performed By: #### 5 7021-8 #### OMERO KNIGHT ([id number]) [facility] ([facility]) [address] [place] [address] RBC (Bld) [#/Vol] 4.86 x10*6/uL Normal 4.00-5.20 [facility] Comment on above: Performed By: #### 5 7021-8 #### OMERO KNIGHT ([id number]) [facility] ([facility]) [address] [place] [address] 02629 WBC (Bld) [#/Vol] 23.0 x10*3/uL High 4.4-11.3 [facility] Comment on above: Performed By: #### 5 7021-8 #### OMERO KNIGHT ([id number]) [facility] ([place] [address] Glucose Test strip manual (B ld) [Mass/Vol]on 10-12-2023 Glucose [Mass/Vol] 189 mg/dL High 74 - 99 mg/dL [facility] Interpretation and review of laboratory results Abnormal [facility] Glucose [Mass/Vol] 189 mg/dL High 74-99 [facility] Comment on above: Performed By: #### 2 341-6 ####OMERO KNIGHT ([id number])[facility] ([facility])[address] [place] [address] 64777 Glucose [Mass/Vol] 264 mg/dL High 74 - 99 mg/dL [facility] Interpretation and review of laboratory results Abnormal [facility] Glucose [Mass/Vol] 264 mg/dL High 74-99 [facility] Comment on above: Performed By: #### 5 7021-8 #### OMERO KNIGHT ([id number]) [facility] ([facility]) [address] [place] [address] Glucose [Mass/Vol] 167 mg/dL High 74 - 99 mg/dL [facility] Interpretation and review of laboratory results Abnormal [facility] Glucose [Mass/Vol] 167 mg/dL High 74-99 [facility] Comment on above: Performed By: #### 5 7021-8 #### OMERO KNIGHT ([id number]) [facility] ([facility]) [address] [place] [address] 92545 Glucose [Mass/Vol] 179 mg/dL High 74 - 99 mg/dL [facility] Interpretation and review of laboratory results Abnormal [facility] Glucose [Mass/Vol] 179 mg/dL High 74-99 [facility] Comment on above: Performed By: #### 5 7021-8 #### OMERO KNIGHT ([id number]) [facility] ([facility]) [address] [place] [address] 14114 Urine CultureOrdered By: Anastasiia Messer on 10-12-2023 Bacteria identified Cx Nom (U) >100,000 Proteus mirabilis Abnormal [facility] Basic metabolic 2000 panelon 10-11-2023 Anion gap [Moles/Vol] 17 mmol/L 10 - 2 0 mmol/L [facility] Calcium [Mass/Vol] 8.6 mg/dL 8.6 - 10. 3 mg/dL [facility] Chloride [Moles/Vol] 92 mmol/L Low 98 - 10 7 mmol/L [facility] CO2 [Moles/Vol] 21 mmol/L 21 - 32 mmol/L [facility] Creatinine [Mass/Vol] 0.90 mg/dL 0.50 - 1.05 mg/dL [facility] GFR/1.73 sq M.predicted among non-blacks MDRD (S/P/Bld) [Vol rate/Area] 67 mL/min/{1.73_m2} - PINF [facility] Comment on above: Calculations of hannah mated GFR are performed using the 2020 CKD-EPI Study Refit equation without the race variable for the IDMS-Traceable creatinine methods. https://jasn.asnjournals.org/content/early/ASN.71863 41964 Glucose [Mass/Vol] 192 mg/dL High 74 - 99 mg/dL [facility] Interpretation and review of laboratory results Abnormal [facility] Potassium [Moles/Vol] 4.0 mmol/L 3.5 - 5.3 mmol/L [facility] Comment on above: MILD HEMOLYSIS DETEC KAYLA. The result may be falsely elevated due to hemolysis or other interferents. Clinical correlation is recommended. Repeat testing may be considered. Sodium [Moles/Vol] 126 mmol/L Low 136 - 145 mmol/L [facility] Urea nitrogen [Mass/Vol] 35 mg/dL High 6 - 23 mg/dL [facility] Anion gap [Moles/Vol] 17 mmol/L Normal 10-20 [facility] Comment on above: Performed By: #### 2 341-6 #### JAMIL EUGENE ([id number]) [facility] ([facility]) [address] [place] [address] Calcium [Mass/Vol] 8.6 mg/dL Normal 8.6-10.3 [facility] Comment on above: Performed By: #### 2 341-6 #### OMERO KNIGHT ([id number]) [facility] ([facility]) [address] [place] [address] 21712 Chloride [Moles/Vol] 92 mmol/L Low 98-107 [facility] Comment on above: Performed By: #### 2 341-6 #### OMERO KNIGHT ([id number]) [facility] ([facility]) [address] [place] [address] 51112 CO2 [Moles/Vol] 21 mmol/L Normal 21-32 [facility] Comment on above: Performed By: #### 2 341-6 #### OMERO KNIGHT ([id number]) [facility] ([facility]) [address] [place] [address] 94213 Creatinine [Mass/Vol] 0.90 mg/dL Normal 0.50-1.05 [facility] Comment on above: Performed By: #### 2 341-6 #### OMERO KNIGHT ([id number]) [facility] ([facility]) [address] [place] [address] 26780 Glomerular filtration rate/1.73 sq M.predicted 67 mL/min/1.73m*2 Normal >60 [facility] Comment on above: Result Comment: Calc ulations of estimated GFR are performed using the 2020 CKD-EPI Study Refit equation without the race variable for the IDMS-Traceable creatinine methods. https://jasn.asnjournals.org/content/early//ASN.72694 74124 Performed By: #### 2 341-6 #### OMERO KNIGHT ([id number]) [facility] ([facility]) [address] [place] [address] 51951 Glucose [Mass/Vol] 192 mg/dL High 74-99 [facility] Comment on above: Performed By: #### 2 341-6 #### OMERO KNIGHT ([id number]) [facility] ([facility]) [address] [place] [address] 61906 Potassium [Moles/Vol] 4.0 mmol/L Normal 3.5-5.3 [facility] Comment on above: Result Comment: MILD HEMOLYSIS DETECTED. The result may be falsely elevated due to hemolysis or other interferents. Clinical correlation is recommended. Repeat testing may be considered. Performed By: #### 2 341-6 #### OMERO KNIGHT ([id number]) [facility] ([facility]) [address] [place] [address] Sodium [Moles/Vol] 126 mmol/L Low 136-145 [facility] Comment on above: Performed By: #### 2 341-6 #### MOERO KNIGHT ([id number]) [facility] ([facility]) [address] [place] [address] Urea nitrogen [Mass/Vol] 35 mg/dL High 6-23 [facility] Comment on above: Performed By: #### 2 341-6 #### OMERO KNIGHT ([id number]) [facility] ([facility]) [address] [place] [address] CBC panel Auto (Bld)on 10-10 Erythrocyte distribution width (RBC) [Ratio] 14.2 % 11.5 - 14.5 % [facility] Hematocrit (Bld) [Volume fraction] 37.3 % 36.0 - 46.0 % [facility] Hemoglobin (Bld) [Mass/Vol] 12.3 g/dL 12.0 - 16.0 g/dL [facility] Interpretation and review of laboratory results Abnormal [facility] MCH (RBC) [Entitic mass] 27.4 pg 26.0 - 34.0 pg [facility] MCHC (RBC) [Mass/Vol] 33.0 g/dL 32.0 - 36.0 g/dL [facility] MCV (RBC) [Entitic vol] 83 fL 80 - 100 fL [facility] Nucleated RBC/100 WBC (Bld) [Ratio] 0.0 % [facility] Platelets (Bld) [#/Vol] 218 10*3/uL [facility] RBC (Bld) [#/Vol] 4.49 10*6/uL [facility] WBC (Bld) [#/Vol] 20.1 10*3/uL High [facility] Erythrocyte distribution width (RBC) [Ratio] 14.2 % Normal 11.5-14.5 [facility] Comment on above: Performed By: #### 2 341-6 #### OMERO KNIGHT ([id number]) [facility] ([facility]) [address] [place] [address] 30909 Hematocrit (Bld) [Volume fraction] 37.3 % Normal 36.0-46.0 [facility] Comment on above: Performed By: #### 2 341-6 #### OMERO KNIGHT ([id number]) [facility] ([facility]) [address] [place] [address] 80492 Hemoglobin (Bld) [Mass/Vol] 12.3 g/dL Normal 12.0-16.0 [facility] Comment on above: Performed By: #### 2 341-6 #### OMERO KNIGHT ([id number]) [facility] ([facility]) [address] [place] [address] 02567 MCH (RBC) [Entitic mass] 27.4 pg Normal 26.0-34.0 [facility] Comment on above: Performed By: #### 2 341-6 #### OMERO KNIGHT ([id number]) [facility] ([facility]) [address] [place] [address] 19155 MCHC (RBC) [Mass/Vol] 33.0 g/dL Normal 32.0-36.0 [facility] Comment on above: Performed By: #### 2 341-6 #### OMERO KNIGHT ([id number]) [facility] ([facility]) [address] [place] [address] 40832 MCV (RBC) [Entitic vol] 83 fL Normal 80-100 [facility] Comment on above: Performed By: #### 2 341-6 #### OMERO KNIGHT ([id number]) [facility] ([facility]) [address] [place] [address] 19613 Nucleated RBC/100 WBC (Bld) [Ratio] 0.0 /100 WBCs Normal 0.0-0.0 [facility] Comment on above: Performed By: #### 2 341-6 #### OMERO KNIGHT ([id number]) [facility] ([facility]) [address] [place] [address] 44856 Platelets (Bld) [#/Vol] 218 x10*3/uL Normal 150-450 [facility] Comment on above: Performed By: #### 2 341-6 #### OMERO KNIGHT ([id number]) [facility] ([facility]) [address] [place] [address] 64316 RBC (Bld) [#/Vol] 4.49 x10*6/uL Normal 4.00-5.20 [facility] Comment on above: Performed By: #### 2 341-6 #### OMERO KNIGHT ([id number]) [facility] ([facility]) [address] [place] [address] 61565 WBC (Bld) [#/Vol] 20.1 x10*3/uL High 4.4-11.3 [facility] Comment on above: Performed By: #### 2 341-6 #### OMERO KNIGHT ([id number]) [facility] ([facility]) [address] [place], [place] [id number] Glucose Test strip manual (B ld) [Mass/Vol]on 10-11-2023 Glucose [Mass/Vol] 212 mg/dL High 74 - 99 mg/dL [facility] Interpretation and review of laboratory results Abnormal [facility] Glucose [Mass/Vol] 212 mg/dL High 74-99 [facility] Comment on above: Performed By: #### 5 7021-8 #### OMERO KNIGHT ([id number]) [facility] ([facility]) [address] [place] [address] 24987 Glucose [Mass/Vol] 204 mg/dL High 74 - 99 mg/dL [facility] Interpretation and review of laboratory results Abnormal [facility] Glucose [Mass/Vol] 204 mg/dL High 74-99 [facility] Comment on above: Performed By: #### 5 7021-8 #### OMERO KNIGHT ([id number]) [facility] ([facility]) [facility] [place] [address] Glucose [Mass/Vol] 194 mg/dL High 74 - 99 mg/dL [facility] Interpretation and review of laboratory results Abnormal [facility] Glucose [Mass/Vol] 194 mg/dL High 74-99 [facility] Comment on above: Performed By: #### 5 7021-8 #### OMERO KNIGHT ([id number]) [facility] ([facility]) [facility] [place] [address] Glucose [Mass/Vol] 182 mg/dL High 74 - 99 mg/dL [facility] Comment on above: RN/MD NOTIFIED Interpretation and review of laboratory results Abnormal [facility] Glucose [Mass/Vol] 182 mg/dL High 74-99 [facility] Comment on above: Result Comment: RN/Shaheen Licea NOTIFIED Performed By: #### 5 7021-8 #### OMERO KNIGHT ([id number]) [facility] ([facility]) [address] [place] [address] 77264 Bacteria identifiedon 2023 Bacteria identified Cx Nom (U) Test: Urine Culture Specimen Source: Clean Catch/Voided Specimen Type: Urine Specimen Date: 10/10/2023327 Result Date: 10/12/20231546 Result Status: Final result Abnormal: Yes Resulting Lab: [facility] [address] [place] [id number] CULTURE >100,000 Proteus mirabilis (Abnormal) SUSCEPTIBILITY Proteus mirabilis METHOD MICROSCAN --- AMPICILLIN <=8.000 mcg/mL Susceptible CEFAZOLIN <=2 mcg/mL Susceptible CEFAZOLIN (UNCOMPLICATED UTIS ONLY) <=2 mcg/mL Susceptible CIPROFLOXACIN <=0.250 mcg/mL Susceptible GENTAMICIN <=2.000 mcg/mL Susceptible NITROFURANTOIN >64 mcg/mL Resistant PIPERACILLIN/TAZOBACTAM <=8.000 mcg/mL Susceptible TETRACYCLINE >8.000 mcg/mL Resistant TRIMETHOPRIM/SULFAMETHOX AZOLE <=2/38 mcg/mL Susceptible Abnormal [facility] Comment on above: Performed By: #### 5 7021-8 #### JAMIL EUGENE ([id number]) [facility] ([facility]) [address] [place] [address] Basic metabolic 2000 panelon 10-10-2023 Anion gap [Moles/Vol] 14 mmol/L 10 - 2 0 mmol/L [facility] Calcium [Mass/Vol] 8.5 mg/dL Low 8.6 - 10. 3 mg/dL [facility] Chloride [Moles/Vol] 88 mmol/L Low 98 - 10 7 mmol/L [facility] CO2 [Moles/Vol] 27 mmol/L 21 - 32 mmol/L [facility] Creatinine [Mass/Vol] 1.13 mg/dL High 0.50 - 1.05 mg/dL [facility] GFR/1.73 sq M.predicted among non-blacks MDRD (S/P/Bld) [Vol rate/Area] 51 mL/min/{1.73_m2} Low - PINF [facility] Comment on above: Calculations of hannah mated GFR are performed using the 2020 CKD-EPI Study Refit equation without the race variable for the IDMS-Traceable creatinine methods. https://jasn.asnjournals.org/content//ASN.71111 15741 Glucose [Mass/Vol] 180 mg/dL High 74 - 99 mg/dL [facility] Interpretation and review of laboratory results Abnormal [facility] Potassium [Moles/Vol] 3.8 mmol/L 3.5 - 5.3 mmol/L [facility] Sodium [Moles/Vol] 125 mmol/L Low 136 - 145 mmol/L [facility] Urea nitrogen [Mass/Vol] 33 mg/dL High 6 - 23 mg/dL [facility] Anion gap [Moles/Vol] 14 mmol/L Normal 10-20 [facility] Comment on above: Performed By: #### 2 341-6 #### OMERO KNIGHT ([id number]) [facility] ([facility]) [address] [place] [address] 18196 Calcium [Mass/Vol] 8.5 mg/dL Low 8.6-10.3 [facility] Comment on above: Performed By: #### 2 341-6 #### OMERO KNIGHT ([id number]) [facility] ([facility]) [address] [place] [address] 35826 Chloride [Moles/Vol] 88 mmol/L Low 98-107 [facility] Comment on above: Performed By: #### 2 341-6 #### OMERO KNIGHT ([id number]) [facility] ([facility]) [facility] [place] [address] CO2 [Moles/Vol] 27 mmol/L Normal 21-32 [facility] Comment on above: Performed By: #### 2 341-6 #### OMERO KNIGHT ([id number]) [facility] ([facility]) [facility] [place] [address] Creatinine [Mass/Vol] 1.13 mg/dL High 0.50-1.05 [facility] Comment on above: Performed By: #### 2 341-6 #### OMERO KNIGHT ([id number]) [facility] ([facility]) [address] [place] [address] 54165 Glomerular filtration rate/1.73 sq M.predicted 51 mL/min/1.73m*2 Low >60 [facility] Comment on above: Result Comment: Calc ulations of estimated GFR are performed using the 2020 CKD-EPI Study Refit equation without the race variable for the IDMS-Traceable creatinine methods. https://jasn.asnjournals.org/content//ASN.95430 21058 Performed By: #### 2 341-6 #### OMERO KNIGHT ([id number]) [facility] ([facility]) [facility] [place] [address] Glucose [Mass/Vol] 180 mg/dL High 74-99 [facility] Comment on above: Performed By: #### 2 341-6 #### OMERO KNIGHT ([id number]) [facility] ([facility]) [address] [place] [address] 70442 Potassium [Moles/Vol] 3.8 mmol/L Normal 3.5-5.3 [facility] Comment on above: Performed By: #### 2 341-6 #### OMERO KNIGHT ([id number]) [facility] ([facility]) [address] [place] [address] 36112 Sodium [Moles/Vol] 125 mmol/L Low 136-145 [facility] Comment on above: Performed By: #### 2 341-6 #### OMERO KNIGHT ([id number]) [facility] ([facility]) [address] [place] [address] 49274 Urea nitrogen [Mass/Vol] 33 mg/dL High 6-23 [facility] Comment on above: Performed By: #### 2 341-6 #### OMERO KNIGHT ([id number]) [facility] ([facility]) [address] [place] [address] 27251 Anion gap [Moles/Vol] 16 mmol/L 10 - 2 0 mmol/L [facility] Calcium [Mass/Vol] 8.8 mg/dL 8.6 - 10. 3 mg/dL [facility] Chloride [Moles/Vol] 89 mmol/L Low 98 - 10 7 mmol/L [facility] CO2 [Moles/Vol] 24 mmol/L 21 - 32 mmol/L [facility] Creatinine [Mass/Vol] 1.08 mg/dL High 0.50 - 1.05 mg/dL [facility] GFR/1.73 sq M.predicted among non-blacks MDRD (S/P/Bld) [Vol rate/Area] 54 mL/min/{1.73_m2} Low - PINF [facility] Comment on above: Calculations of hannah mated GFR are performed using the 2020 CKD-EPI Study Refit equation without the race variable for the IDMS-Traceable creatinine methods. https://jasn.asnjournals.org/content//ASN.99899 92109 Glucose [Mass/Vol] 202 mg/dL High 74 - 99 mg/dL [facility] Interpretation and review of laboratory results Abnormal [facility] Potassium [Moles/Vol] 3.9 mmol/L 3.5 - 5.3 mmol/L [facility] Sodium [Moles/Vol] 125 mmol/L Low 136 - 145 mmol/L [facility] Urea nitrogen [Mass/Vol] 32 mg/dL High 6 - 23 mg/dL [facility] Anion gap [Moles/Vol] 16 mmol/L Normal 10-20 [facility] Comment on above: Performed By: #### 2 341-6 #### OMERO KNIGHT ([id number]) [facility] ([facility]) [address] [place] [address] Calcium [Mass/Vol] 8.8 mg/dL Normal 8.6-10.3 [facility] Comment on above: Performed By: #### 2 341-6 #### OMERO KNIGHT ([id number]) [facility] ([facility]) [address] [place] [address] Chloride [Moles/Vol] 89 mmol/L Low 98-107 [facility] Comment on above: Performed By: #### 2 341-6 #### OMERO KNIGHT ([id number]) [facility] ([facility]) [address] [place] [address] CO2 [Moles/Vol] 24 mmol/L Normal 21-32 [facility] Comment on above: Performed By: #### 2 341-6 #### OMERO KNIGHT ([id number]) [facility] ([facility]) [address] [place] [address] Creatinine [Mass/Vol] 1.08 mg/dL High 0.50-1.05 [facility] Comment on above: Performed By: #### 2 341-6 #### OMERO KNIGHT ([id number]) [facility] ([facility]) [address] [place] [address] 23729 Glomerular filtration rate/1.73 sq M.predicted 54 mL/min/1.73m*2 Low >60 [facility] Comment on above: Result Comment: Calc ulations of estimated GFR are performed using the 2020 CKD-EPI Study Refit equation without the race variable for the IDMS-Traceable creatinine methods. https://jasn.asnjournals.org/content/early/ASN.22221 54083 Performed By: #### 2 341-6 #### OMERO KNIGHT ([id number]) [facility] ([facility]) [address] [place] [address] 05906 Glucose [Mass/Vol] 202 mg/dL High 74-99 [facility] Comment on above: Performed By: #### 2 341-6 #### OMERO KNIGHT ([id number]) [facility] ([facility]) [address] [place] [address] 43326 Potassium [Moles/Vol] 3.9 mmol/L Normal 3.5-5.3 [facility] Comment on above: Performed By: #### 2 341-6 #### OMERO KNIGHT ([id number]) [facility] ([facility]) [address] [place] [address] 41428 Sodium [Moles/Vol] 125 mmol/L Low 136-145 [facility] Comment on above: Performed By: #### 2 341-6 #### OMERO KNIGHT ([id number]) [facility] ([facility]) [address] [place] [address] 05013 Urea nitrogen [Mass/Vol] 32 mg/dL High 6-23 [facility] Comment on above: Performed By: #### 2 341-6 #### OMERO KNIGHT ([id number]) [facility] ([facility]) [address] [place] [address] 76701 Anion gap [Moles/Vol] 17 mmol/L [facility] Calcium [Mass/Vol] 9.3 mg/dL 8.6 - 10. 3 mg/dL [facility] Chloride [Moles/Vol] 86 mmol/L Low 98 - 10 7 mmol/L [facility] CO2 [Moles/Vol] 27 mmol/L 21 - 32 mmol/L [facility] Creatinine [Mass/Vol] 1.09 mg/dL High 0.50 - 1.05 mg/dL [facility] GFR/1.73 sq M.predicted among non-blacks MDRD (S/P/Bld) [Vol rate/Area] 53 mL/min/{1.73_m2} Low - PINF [facility] Comment on above: Calculations of hannah mated GFR are performed using the 2020 CKD-EPI Study Refit equation without the race variable for the IDMS-Traceable creatinine methods. https://jasn.asnjournals.org/content/early/ASN.60914 81097 Glucose [Mass/Vol] 171 mg/dL High 74 - 99 mg/dL [facility] Interpretation and review of laboratory results Abnormal [facility] Potassium [Moles/Vol] 4.2 mmol/L 3.5 - 5.3 mmol/L [facility] Sodium [Moles/Vol] 126 mmol/L Low 136 - 145 mmol/L [facility] Urea nitrogen [Mass/Vol] 31 mg/dL High 6 - 23 mg/dL [facility] Anion gap [Moles/Vol] 17 mmol/L Normal [facility] Comment on above: Performed By: #### 2 4321-2 #### OMERO KNIGHT ([id number]) [facility] ([facility]) [address] [place] [address] 00546 Calcium [Mass/Vol] 9.3 mg/dL Normal 8.6-10.3 [facility] Comment on above: Performed By: #### 2 4321-2 #### OMERO KNIGHT ([id number]) [facility] ([facility]) [facility] [place] [address] Chloride [Moles/Vol] 86 mmol/L Low 98-107 [facility] Comment on above: Performed By: #### 2 4321-2 #### OMERO KNIGHT ([id number]) [facility] ([facility]) [address] [place] [address] CO2 [Moles/Vol] 27 mmol/L Normal 21-32 [facility] Comment on above: Performed By: #### 2 4321-2 #### OMERO KNIGHT ([id number]) [facility] ([facility]) [address] [place] [address] Creatinine [Mass/Vol] 1.09 mg/dL High 0.50-1.05 [facility] Comment on above: Performed By: #### 2 432-2 #### OMERO KNIGHT ([id number]) [facility] ([facility]) [address] [place] [address] 22075 Glomerular filtration rate/1.73 sq M.predicted 53 mL/min/1.73m*2 Low >60 [facility] Comment on above: Result Comment: Calc ulations of estimated GFR are performed using the 2020 CKD-EPI Study Refit equation without the race variable for the IDMS-Traceable creatinine methods. https://jasn.asnjournals.org/content/early//ASN.15805 73244 Performed By: #### 2 4321-2 #### OMERO KNIGHT ([id number]) [facility] ([facility]) [facility] [place] [address] Glucose [Mass/Vol] 171 mg/dL High 74-99 [facility] Comment on above: Performed By: #### 2 4321-2 #### OMERO KNIGHT ([id number]) [facility] ([facility]) [facility] [place] [address] Potassium [Moles/Vol] 4.2 mmol/L Normal 3.5-5.3 [facility] Comment on above: Performed By: #### 2 4321-2 #### OMERO KNIGHT ([id number]) [facility] ([facility]) [address] [place] [address] Sodium [Moles/Vol] 126 mmol/L Low 136-145 [facility] Comment on above: Performed By: #### 2 4321-2 #### JAMIL EUGENE ([id number]) [facility] ([facility]) [address] [place] [address] Urea nitrogen [Mass/Vol] 31 mg/dL High 6-23 [facility] Comment on above: Performed By: #### 2 4321-2 #### JAMIL EUGENE ([id number]) [facility] ([facility]) [facility] [place] [id number] CBC W Auto Differential pane l (Bld)on 10-10-2023 Basophils (Bld) [#/Vol] 0.05 10*3/uL [facility] Basophils/100 WBC (Bld) 0.3 % 0.0 - 2.0 % [facility] Eosinophils (Bld) [#/Vol] 0.03 10*3/uL [facility] Eosinophils/100 WBC (Bld) 0.2 % 0.0 - 6.0 % [facility] Erythrocyte distribution width (RBC) [Ratio] 13.9 % 11.5 - 14.5 % [facility] Hematocrit (Bld) [Volume fraction] 41.4 % 36.0 - 46.0 % [facility] Hemoglobin (Bld) [Mass/Vol] 13.6 g/dL 12.0 - 16.0 g/dL [facility] Immature granulocytes (Bld) [#/Vol] 0.23 10*3/uL [facility] Immature granulocytes/100 WBC (Bld) 1.3 % High 0.0 - 0.9 % [facility] Comment on above: Immature Granulocyte Count (IG) includes promyelocytes, myelocytes and metamyelocytes but does not include bands. Percent differential counts (%) should be interpreted in the context of the absolute cell counts (cells/UL). Interpretation and review of laboratory results Abnormal [facility] Lymphocytes (Bld) [#/Vol] 0.76 10*3/uL Low [facility] Lymphocytes/100 WBC (Bld) 4.4 % 13.0 - 44.0 % [facility] MCH (RBC) [Entitic mass] 27.0 pg 26.0 - 34.0 pg [facility] MCHC (RBC) [Mass/Vol] 32.9 g/dL 32.0 - 36.0 g/dL [facility] MCV (RBC) [Entitic vol] 82 fL 80 - 100 fL [facility] Monocytes (Bld) [#/Vol] 0.88 10*3/uL High [facility] Monocytes/100 WBC (Bld) 5.1 % 2.0 - 10.0 % [facility] Neutrophils (Bld) [#/Vol] 15.29 10*3/uL [facility] Comment on above: Percent differential counts (%) should be interpreted in the context of the absolute cell counts (cells/uL). Neutrophils/100 WBC (Bld) 88.7 % 40.0 - 80.0 % [facility] Nucleated RBC/100 WBC (Bld) [Ratio] 0.0 % [facility] Platelets (Bld) [#/Vol] 251 10*3/uL [facility] RBC (Bld) [#/Vol] 5.03 10*6/uL [facility] WBC (Bld) [#/Vol] 17.2 10*3/uL [facility] Basophils (Bld) [#/Vol] 0.05 x10*3/uL Normal 0.00-0.10 [facility] Comment on above: Performed By: #### 5 7021-8 #### OMERO KNIGHT ([id number]) [facility] ([facility]) [address] [place] [address] 53998 Basophils/100 WBC (Bld) 0.3 % Normal 0.0-2.0 [facility] Comment on above: Performed By: #### 5 7021-8 #### OMERO KNIGHT ([id number]) [facility] ([facility]) [address] [place] [address] 45821 Eosinophils (Bld) [#/Vol] 0.03 x10*3/uL Normal 0.00-0.40 [facility] Comment on above: Performed By: #### 5 7021-8 #### OMERO KNIGHT ([id number]) [facility] ([facility]) [address] [place] [address] 19948 Eosinophils/100 WBC (Bld) 0.2 % Normal 0.0-6.0 [facility] Comment on above: Performed By: #### 5 7021-8 #### OMERO KNIGHT ([id number]) [facility] ([facility]) [address] [place] [address] 84957 Erythrocyte distribution width (RBC) [Ratio] 13.9 % Normal 11.5-14.5 [facility] Comment on above: Performed By: #### 5 7021-8 #### OMERO KNIGHT ([id number]) [facility] ([facility]) [address] [place] [address] 20239 Hematocrit (Bld) [Volume fraction] 41.4 % Normal 36.0-46.0 [facility] Comment on above: Performed By: #### 5 7021-8 #### OMERO KNIGHT ([id number]) [facility] ([facility]) [address] [place] [address] 31578 Hemoglobin (Bld) [Mass/Vol] 13.6 g/dL Normal 12.0-16.0 [facility] Comment on above: Performed By: #### 5 7021-8 #### OMERO KNIGHT ([id number]) [facility] ([facility]) [address] [place] [address] 76737 Immature granulocytes (Bld) [#/Vol] 0.23 x10*3/uL Normal 0.00-0.50 [facility] Comment on above: Performed By: #### 5 7021-8 #### OMERO KNIGHT ([id number]) [facility] ([facility]) [address] [place] [address] 49243 Immature granulocytes/100 WBC (Bld) 1.3 % High 0.0-0.9 [facility] Comment on above: Result Comment: Martina ture Granulocyte Count (IG) includes promyelocytes, myelocytes and metamyelocytes but does not include bands. Percent differential counts (%) should be interpreted in the context of the absolute cell counts (cells/UL). Performed By: #### 5 7021-8 #### OMERO KNIGHT ([id number]) [facility] ([facility]) [address] [place] [address] Lymphocytes (Bld) [#/Vol] 0.76 x10*3/uL Low 0.80-3.00 [facility] Comment on above: Performed By: #### 5 7021-8 #### OMERO KNIGHT ([id number]) [facility] ([facility]) [address] [place], [place] [address] Lymphocytes/100 WBC (Bld) 4.4 % Normal 13.0-44.0 [facility] Comment on above: Performed By: #### 5 7021-8 #### OMERO KNIGHT ([id number]) [facility] ([facility]) [address] [place], [place] [address] MCH (RBC) [Entitic mass] 27.0 pg Normal 26.0-34.0 [facility] Comment on above: Performed By: #### 5 7021-8 #### OMERO KNIGHT ([id number]) [facility] ([facility]) [address] [place] [address] 85896 MCHC (RBC) [Mass/Vol] 32.9 g/dL Normal 32.0-36.0 [facility] Comment on above: Performed By: #### 5 7021-8 #### OMERO KNIGHT ([id number]) [facility] ([facility]) [address] [place] [address] 89810 MCV (RBC) [Entitic vol] 82 fL Normal 80-100 [facility] Comment on above: Performed By: #### 5 7021-8 #### OMERO KNIGHT ([id number]) [facility] ([facility]) [address] [place] [address] 50992 Monocytes (Bld) [#/Vol] 0.88 x10*3/uL High 0.05-0.80 [facility] Comment on above: Performed By: #### 5 7021-8 #### OMERO KNIGHT ([id number]) [facility] ([facility]) [address] [place] [address] 62433 Monocytes/100 WBC (Bld) 5.1 % Normal 2.0-10.0 [facility] Comment on above: Performed By: #### 5 7021-8 #### OMERO KNIGHT ([id number]) [facility] ([facility]) [address] [place] [address] 26122 Neutrophils (Bld) [#/Vol] 15.29 x10*3/uL High 1.60-5.50 [facility] Comment on above: Result Comment: Perc ent differential counts (%) should be interpreted in the context of the absolute cell counts (cells/uL). Performed By: #### 5 7021-8 #### OMERO KNIGHT ([id number]) [facility] ([facility]) [address] [place] [address] 49765 Neutrophils/100 WBC (Bld) 88.7 % Normal 40.0-80.0 [facility] Comment on above: Performed By: #### 5 7021-8 #### OMERO KNIGHT ([id number]) [facility] ([facility]) [address] [place] [address] 48212 Nucleated RBC/100 WBC (Bld) [Ratio] 0.0 /100 WBCs Normal 0.0-0.0 [facility] Comment on above: Performed By: #### 5 7021-8 #### OMERO KNIGHT ([id number]) [facility] ([facility]) [address] [place] [address] 19674 Platelets (Bld) [#/Vol] 251 x10*3/uL Normal 150-450 [facility] Comment on above: Performed By: #### 5 7021-8 #### OMERO KNIGHT ([id number]) [facility] ([facility]) [address] [place] [address] 11085 RBC (Bld) [#/Vol] 5.03 x10*6/uL Normal 4.00-5.20 [facility] Comment on above: Performed By: #### 5 7021-8 #### OMERO KNIGHT ([id number]) [facility] ([facility]) [address] [place] [address] 34745 WBC (Bld) [#/Vol] 17.2 x10*3/uL High 4.4-11.3 [facility] Comment on above: Performed By: #### 5 7021-8 #### OMERO KNIGHT ([id number]) [facility] ([facility]) [address] [place], [place] [phone] CBC panel Auto (Bld)on 10-09 Erythrocyte distribution width (RBC) [Ratio] 13.9 % 11.5 - 14.5 % [facility] Hematocrit (Bld) [Volume fraction] 36.1 % 36.0 - 46.0 % [facility] Hemoglobin (Bld) [Mass/Vol] 11.8 g/dL Low 12.0 - 16.0 g/dL [facility] Interpretation and review of laboratory results Abnormal [facility] MCH (RBC) [Entitic mass] 26.9 pg 26.0 - 34.0 pg [facility] MCHC (RBC) [Mass/Vol] 32.7 g/dL 32.0 - 36.0 g/dL [facility] MCV (RBC) [Entitic vol] 82 fL 80 - 100 fL [facility] Nucleated RBC/100 WBC (Bld) [Ratio] 0.0 % [facility] Platelets (Bld) [#/Vol] 210 10*3/uL [facility] RBC (Bld) [#/Vol] 4.39 10*6/uL [facility] WBC (Bld) [#/Vol] 26.0 10*3/uL High [facility] Erythrocyte distribution width (RBC) [Ratio] 13.9 % Normal 11.5-14.5 [facility] Comment on above: Performed By: #### 2 341-6 #### OMERO KNIGHT ([id number]) [facility] ([facility]) [address] [place], [place] [id number] Hematocrit (Bld) [Volume fraction] 36.1 % Normal 36.0-46.0 [facility] Comment on above: Performed By: #### 2 341-6 #### OMERO KNIGHT ([id number]) [facility] ([facility]) [address] [place] [address] 09973 Hemoglobin (Bld) [Mass/Vol] 11.8 g/dL Low 12.0-16.0 [facility] Comment on above: Performed By: #### 2 341-6 #### OMERO KNIGHT ([id number]) [facility] ([facility]) [address] [place] [address] 56474 MCH (RBC) [Entitic mass] 26.9 pg Normal 26.0-34.0 [facility] Comment on above: Performed By: #### 2 341-6 #### OMERO KNIGHT ([id number]) [facility] ([facility]) [address] [place] [address] 38465 MCHC (RBC) [Mass/Vol] 32.7 g/dL Normal 32.0-36.0 [facility] Comment on above: Performed By: #### 2 341-6 #### OMERO KNIGHT ([id number]) [facility] ([facility]) [address] [place] [address] 49778 MCV (RBC) [Entitic vol] 82 fL Normal 80-100 [facility] Comment on above: Performed By: #### 2 341-6 #### OMERO KNIGHT ([id number]) [facility] ([facility]) [address] [place] [address] 39227 Nucleated RBC/100 WBC (Bld) [Ratio] 0.0 /100 WBCs Normal 0.0-0.0 [facility] Comment on above: Performed By: #### 2 341-6 #### OMERO KNIGHT ([id number]) [facility] ([facility]) [address] [place] [address] 61081 Platelets (Bld) [#/Vol] 210 x10*3/uL Normal 150-450 [facility] Comment on above: Performed By: #### 2 341-6 #### OMERO KNIGHT ([id number]) [facility] ([facility]) [address] [place] [address] RBC (Bld) [#/Vol] 4.39 x10*6/uL Normal 4.00-5.20 [facility] Comment on above: Performed By: #### 2 341-6 #### OMERO GONZALEZZOILA ([id number]) [facility] ([facility]) [facility] [place] [address] WBC (Bld) [#/Vol] 26.0 x10*3/uL High 4.4-11.3 [facility] Comment on above: Performed By: #### 2 341-6 #### OMERO DONAHUEJOSEPH ([id number]) [facility] ([facility]) [address] [place] [address] CT ABDOMEN PELVIS WO IV CONT [facility] 10-10-2023 CT ABDOMEN PELVIS WO IV CONTRAST Interpreted By: Vlad Araya, STUDY: CT ABDOMEN PELVIS WO IV CONTRAST; 10/10/2023 2:45 am INDICATION: Signs/Symptoms:back pain w/o injury. COMPARISON: CT scan of the abdomen 01/05/2020 ACCESSION NUMBER(S): [id number] ORDERING CLINICIAN: FLAVIO MILES TECHNIQUE: Axial noncontrast CT images of the abdomen and pelvis with coronal and sagittal reconstructed images. FINDINGS: LOWER CHEST: Trace right pleural effusion. Bibasilar atelectasis and or scarring. 2 nodules in the right middle lobe measuring up to 10 mm are stable from CT scan of 2019. Mild elevation of the left hemidiaphragm. Coronary artery calcifications noted. ABDOMEN: Lack of intravenous contrast limits evaluation of vessels and solid organs. LIVER: Within normal limits. BILE DUCTS: Normal caliber. GALLBLADDER: Status post cholecystectomy. PANCREAS: Fjcd-iz-bubzdptp fatty atrophy of the pancreas. SPLEEN: Splenomegaly measuring 13.3 cm in craniocaudal dimension. The superior margin is excluded from the field of view slightly limiting evaluation. ADRENALS: Nodular thickening of the left adrenal gland may relate to hyperplasia or adenomatous change. KIDNEYS, URETERS, URINARY BLADDER: Kidneys are symmetric in size. There are least 3 nonobstructing left renal calculi measuring 2-3 mm. No evidence for right renal or bilateral ureteral calculi. No hydronephrosis, hydroureter or perinephric inflammatory changes. No bladder calculi. Bladder is under distended with apparent wall thickening. VESSELS: Calcific atherosclerosis of the aortoiliac vessels. No aortic aneurysm. RETROPERITONEUM: No pathologically enlarged lymph nodes. PELVIS: REPRODUCTIVE ORGANS: Uterus is present with exophytic coarse calcifications likely relate to calcified subserosal fibroid no adnexal mass. BOWEL: Small hiatal hernia. Stomach is under distended. Visualized loops of bowel are without evidence for obstruction. Moderate stool burden. 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 A few scattered colonic diverticula without evidence for acute diverticulitis. Normal appendix. PERITONEUM: No ascites or free air, no fluid collection. ABDOMINAL WALL: Within normal limits. BONES: Multilevel degenerative changes of the spine. Bilateral hip osteoarthrosis. Interbody fusion at L4-5. IMPRESSION: Several nonobstructing left renal calculi measure 2-3 mm. Stable splenomegaly measuring 13.3 cm in craniocaudal dimension. Trace right pleural effusion. Bibasilar atelectasis and or scarring. 2 nodules in the right middle lobe measuring up to 10 mm are stable from CT scan of 2019. Additional findings as noted above. MACRO: None Signed by: Vlad Araya 10/10/2023 3:17 AM Dictation workstation: [id number] [facility] CT Abdomen WO contraston Several nonobstructi ng left renal calculi measure 2-3 mm. Stable splenomegaly measuring 13.3 cm in craniocaudal dimension. Trace right pleural effusion. Bibasilar atelectasis and or scarring. 2 nodules in the right middle lobe measuring up to 10 mm are stable from CT scan of 2019. Additional findings as noted above. MACRO: None Signed by: Vlad Araya 10/10/2023 3:17 AM Dictation workstation: [id number] Interpreted By: Vlad Schneider, STUDY: CT ABDOMEN PELVIS WO IV CONTRAST; 10/10/2023 2:45 am INDICATION: Signs/Symptoms:back pain w/o injury. COMPARISON: CT scan of the abdomen 01/05/2020 ACCESSION NUMBER(S): [id number] ORDERING CLINICIAN: FLAVIO MILES TECHNIQUE: Axial noncontrast CT images of the abdomen and pelvis with coronal and sagittal reconstructed images. FINDINGS: LOWER CHEST: Trace right pleural effusion. Bibasilar atelectasis and or scarring. 2 nodules in the right middle lobe measuring up to 10 mm are stable from CT scan of 2019. Mild elevation of the left hemidiaphragm. Coronary artery calcifications noted. ABDOMEN: Lack of intravenous contrast limits evaluation of vessels and solid organs. LIVER: Within normal limits. BILE DUCTS: Normal caliber. GALLBLADDER: Status post cholecystectomy. PANCREAS: Crrb-pg-odojfreh fatty atrophy of the pancreas. SPLEEN: Splenomegaly measuring 13.3 cm in craniocaudal dimension. The superior margin is excluded from the field of view slightly limiting evaluation. ADRENALS: Nodular thickening of the left adrenal gland may relate to hyperplasia or adenomatous change. KIDNEYS, URETERS, URINARY BLADDER: Kidneys are symmetric in size. There are least 3 nonobstructing left renal calculi measuring 2-3 mm. No evidence for right renal or bilateral ureteral calculi. No hydronephrosis, hydroureter or perinephric inflammatory changes. No bladder calculi. Bladder is under distended with apparent wall thickening. VESSELS: Calcific atherosclerosis of the aortoiliac vessels. No aortic aneurysm. RETROPERITONEUM: No pathologically enlarged lymph nodes. PELVIS: REPRODUCTIVE ORGANS: Uterus is present with exophytic coarse calcifications likely relate to calcified subserosal fibroid no adnexal mass. BOWEL: Small hiatal hernia. Stomach is under distended. Visualized loops of bowel are without evidence for obstruction. Moderate stool burden. 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 A few scattered colonic diverticula without evidence for acute diverticulitis. Normal appendix. PERITONEUM: No ascites or free air, no fluid collection. ABDOMINAL WALL: Within normal limits. BONES: Multilevel degenerative changes of the spine. Bilateral hip osteoarthrosis. Interbody fusion at L4-5. [facility] Vlad Araya MD - 10/10/2023 Interpreted By: Vlda Araya, STUDY: CT ABDOMEN PELVIS WO IV CONTRAST; 10/10/2023 2:45 am INDICATION: Signs/Symptoms:back pain w/o injury. COMPARISON: CT scan of the abdomen 01/05/2020 ACCESSION NUMBER(S): [id number] ORDERING CLINICIAN: FLAVIO MILES TECHNIQUE: Axial noncontrast CT images of the abdomen and pelvis with coronal and sagittal reconstructed images. FINDINGS: LOWER CHEST: Trace right pleural effusion. Bibasilar atelectasis and or scarring. 2 nodules in the right middle lobe measuring up to 10 mm are stable from CT scan of 2019. Mild elevation of the left hemidiaphragm. Coronary artery calcifications noted. ABDOMEN: Lack of intravenous contrast limits evaluation of vessels and solid organs. LIVER: Within normal limits. BILE DUCTS: Normal caliber. GALLBLADDER: Status post cholecystectomy. PANCREAS: Jaox-et-loavigfj fatty atrophy of the pancreas. SPLEEN: Splenomegaly measuring 13.3 cm in craniocaudal dimension. The superior margin is excluded from the field of view slightly limiting evaluation. ADRENALS: Nodular thickening of the left adrenal gland may relate to hyperplasia or adenomatous change. KIDNEYS, URETERS, URINARY BLADDER: Kidneys are symmetric in size. There are least 3 nonobstructing left renal calculi measuring 2-3 mm. No evidence for right renal or bilateral ureteral calculi. No hydronephrosis, hydroureter or perinephric inflammatory changes. No bladder calculi. Bladder is under distended with apparent wall thickening. VESSELS: Calcific atherosclerosis of the aortoiliac vessels. No aortic aneurysm. RETROPERITONEUM: No pathologically enlarged lymph nodes. PELVIS: REPRODUCTIVE ORGANS: Uterus is present with exophytic coarse calcifications likely relate to calcified subserosal fibroid no adnexal mass. BOWEL: Small hiatal hernia. Stomach is under distended. Visualized loops of bowel are without evidence for obstruction. Moderate stool burden. 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 A few scattered colonic diverticula without evidence for acute diverticulitis. Normal appendix. PERITONEUM: No ascites or free air, no fluid collection. ABDOMINAL WALL: Within normal limits. BONES: Multilevel degenerative changes of the spine. Bilateral hip osteoarthrosis. Interbody fusion at L4-5. IMPRESSION: Several nonobstructing left renal calculi measure 2-3 mm. Stable splenomegaly measuring 13.3 cm in craniocaudal dimension. Trace right pleural effusion. Bibasilar atelectasis and or scarring. 2 nodules in the right middle lobe measuring up to 10 mm are stable from CT scan of 2019. Additional findings as noted above. MACRO: None Signed by: Vlad Araya 10/10/2023 3:17 AM Dictation workstation: [id number] [facility] Work Phone: [facility] Work Phone: Radiology Study observation (narrative) [facility] Work Phone: ECG 12-LEADon 10-10-2023 ECG 12-LEAD Ventricular Rate 112 QRS Duration 106 Q-T Interval 338 QTC Calculation(Bazett) 461 R Critz -62 T Critz 104 QRS Count 19 Q Onset 208 T Offset 377 QTC Fredericia 416 Diagnosis Atrial fibrillation with rapid ventricular response with premature ventricular or aberrantly conducted complexes Left anterior fascicular block Possible Anterior infarct , age undetermined ST & T wave abnormality, consider lateral ischemia Abnormal ECG See ED provider note for full interpretation and clinical correlation Confirmed by Sophie Florian ([id number]) on 10/18/2023 8:16:18 PM Normal [facility] Glucose Test strip manual (B ld) [Mass/Vol]on 10-10-2023 Glucose [Mass/Vol] 178 mg/dL High 74 - 99 mg/dL [facility] Interpretation and review of laboratory results Abnormal [facility] Glucose [Mass/Vol] 178 mg/dL High 74-99 [facility] Comment on above: Performed By: #### 2 341-6 #### OMERO KNIGHT ([id number]) [facility] ([facility]) [address] [place] [address] 20165 Glucose [Mass/Vol] 209 mg/dL High 74 - 99 mg/dL [facility] Interpretation and review of laboratory results Abnormal [facility] Glucose [Mass/Vol] 209 mg/dL High 74-99 [facility] Comment on above: Performed By: #### 2 341-6 #### OMERO KNIGHT ([id number]) [facility] ([facility]) [address] [place] [address] 34733 Glucose [Mass/Vol] 187 mg/dL High 74 - 99 mg/dL [facility] Interpretation and review of laboratory results Abnormal [facility] Glucose [Mass/Vol] 187 mg/dL High 74-99 [facility] Comment on above: Performed By: #### 2 341-6 #### OMERO KNIGHT ([id number]) [facility] ([facility]) [address] [place] [address] Glucose [Mass/Vol] 215 mg/dL High 74 - 99 mg/dL [facility] Interpretation and review of laboratory results Abnormal [facility] Glucose [Mass/Vol] 215 mg/dL High 74-99 [facility] Comment on above: Performed By: #### 2 341-6 #### OMERO KNIGHT ([id number]) [facility] ([facility]) [address] [place] [address] Glucose [Mass/Vol] 174 mg/dL High 74 - 99 mg/dL [facility] Comment on above: RN/ NOTIFIED Interpretation and review of laboratory results Abnormal [facility] Glucose [Mass/Vol] 174 mg/dL High 74-99 [facility] Comment on above: Result Comment: RN/Shaheen Licea NOTIFIED Performed By: #### 2 341-6 #### OMERO KNIGHT ([id number]) [facility] ([facility]) [address] [place] [address] Lavender Topon 10-10-2023 Extra Tube Hold for add-ons. [facility] Comment on above: Auto resulted. [facility] Natriuretic peptide B [Mass/ Vol]on 10-10-2023 Interpretation and review of laboratory results Abnormal [facility] Natriuretic peptide B (Bld) [Mass/Vol] 225 pg/mL High 0 - 99 pg/mL [facility] <100 pg/mL - Heart failure unlikely 100-299 pg/mL - Intermediate probability of acute heart failure exacerbation. Correlate with clinical context and patient history. >=300 pg/mL - Heart Failure likely. Correlate with clinical context and patient history. BNP testing is performed using different testing methodology at [facility] than at other [facility]. Direct result comparisons should only be made within the same method. [facility] Natriuretic peptide B (Bld) [Mass/Vol] 225 pg/mL High 0-99 [facility] Comment on above: Order Comment: <100 pg/mL - Heart failure unlikely 100-299 pg/mL - Intermediate probability of acute heart failure exacerbation. Correlate with clinical context and patient history. >=300 pg/mL - Heart Failure likely. Correlate with clinical context and patient history. BNP testing is performed using different testing methodology at [facility] than at [facility]. Direct result comparisons should only be made within the same method. Performed By: #### 3 0934-4 #### JAMIL EUGENE ([id number]) [facility] ([facility]) [address] [place] [address] Tropinin I.cardiac panel Hig h sensitivity methodon 10-10-2023 Interpretation and review of laboratory results Normal [facility] Less than 99th percentile of normal range cutoff- Female and children under 18 years old <14 ng/L; Male <21 ng/L: Negative Repeat testing should be performed if clinically indicated. Female and children under 18 years old 14-50 ng/L; Male 21-50 ng/L: Consistent with possible cardiac damage and possible increased clinical risk. Serial measurements may help to assess extent of myocardial damage. >50 ng/L: Consistent with cardiac damage, increased clinical risk and myocardial infarction. Serial measurements may help assess extent of myocardial damage. NOTE: Children less than 1 year old may have higher baseline troponin levels and results should be interpreted in conjunction with the overall clinical context. NOTE: Troponin I testing is performed using a different testing methodology at [facility] than at [facility]. Direct result comparisons should only be made within the same method. [facility] Interpretation and review of laboratory results Normal [facility] Less than 99th percentile of normal range cutoff- Female and children under 18 years old <14 ng/L; Male <21 ng/L: Negative Repeat testing should be performed if clinically indicated. Female and children under 18 years old 14-50 ng/L; Male 21-50 ng/L: Consistent with possible cardiac damage and possible increased clinical risk. Serial measurements may help to assess extent of myocardial damage. >50 ng/L: Consistent with cardiac damage, increased clinical risk and myocardial infarction. Serial measurements may help assess extent of myocardial damage. NOTE: Children less than 1 year old may have higher baseline troponin levels and results should be interpreted in conjunction with the overall clinical context. NOTE: Troponin I testing is performed using a different testing methodology at [facility] than at [facility]. Direct result comparisons should only be made within the same method. [facility] Troponin I, High Sensitivity , Initialon 10-10-2023 Tropinin I.cardiac panel High sensitivity method 12 ng/L 0 - 13 ng/L [facility] Troponin I.cardiac panelon 0 10-10-2023 Tropinin I.cardiac panel High sensitivity method 12 ng/L Normal 0-13 [facility] Comment on above: Order Comment: Less than 99th percentile of normal range cutoff- Female and children under 18 years old <14 ng/L; Male <21 ng/L: Negative Repeat testing should be performed if clinically indicated. Female and children under 18 years old 14-50 ng/L; Male 21-50 ng/L: Consistent with possible cardiac damage and possible increased clinical risk. Serial measurements may help to assess extent of myocardial damage. >50 ng/L: Consistent with cardiac damage, increased clinical risk and myocardial infarction. Serial measurements may help assess extent of myocardial damage. NOTE: Children less than 1 year old may have higher baseline troponin levels and results should be interpreted in conjunction with the overall clinical context. NOTE: Troponin I testing is performed using a different testing methodology at [facility] than at [facility]. Direct result comparisons should only be made within the same method. Performed By: #### 8 9577-1 #### JAMIL EUGENE ([id number]) [facility] ([facility]) [address] [place] [address] Tropinin I.cardiac panel High sensitivity method 12 ng/L Normal 0-13 [facility] Comment on above: Order Comment: Less than 99th percentile of normal range cutoff- Female and children under 18 years old <14 ng/L; Male <21 ng/L: Negative Repeat testing should be performed if clinically indicated. Female and children under 18 years old 14-50 ng/L; Male 21-50 ng/L: Consistent with possible cardiac damage and possible increased clinical risk. Serial measurements may help to assess extent of myocardial damage. >50 ng/L: Consistent with cardiac damage, increased clinical risk and myocardial infarction. Serial measurements may help assess extent of myocardial damage. NOTE: Children less than 1 year old may have higher baseline troponin levels and results should be interpreted in conjunction with the overall clinical context. NOTE: Troponin I testing is performed using a different testing methodology at [facility] than at other [facility]. Direct result comparisons should only be made within the same method. Performed By: #### 8 9577-1 #### OMERO KNIGHT ([id number]) [facility] ([facility]) [address] [place] [address] Troponin, High Sensitivity, 1 Houron 10-10-2023 Tropinin I.cardiac panel High sensitivity method 12 ng/L 0 - 13 ng/L [facility] Urinalysis complete W Reflex Culture panel (U)Ordered By: Diana Barros on 10-10-2023 Appearance (U) Turbid Abnormal Clear [facility] Bilirubin (U) [Mass/Vol] Negative NEGATIVE [facility] Color (U) Yellow Light-Yellow , Yellow, Dark-Yellow [facility] Glucose Auto test strip (U) [Mass/Vol] Normal Normal mg/dL [facility] Interpretation and review of laboratory results Abnormal [facility] Ketones (U) [Mass/Vol] 10 (1+) Abnormal NEGAT JORGE mg/dL [facility] Leukocyte esterase Auto test strip Ql (U) 500 Ray/ L Abnormal NEGATIVE [facility] Nitrite Auto test strip Ql (U) 2+ Abnormal NEGATIVE [facility] pH (U) 8.0 [pH] 5.0, 5.5, 6.0, 6.5, 7.0, 7.5, 8.0 [facility] Protein (U) [Mass/Vol] 70 (1+) Abnormal NEGAT JORGE, 10 (TRACE), 20 (TRACE) mg/dL [facility] RBC (U) [#/Vol] 0.1 (1+) Abnormal NEGATIVE [facility] Specific gravity (U) [Rel density] 1.027 1.005 - 1.035 [facility] Urobilinogen (U) [Mass/Vol] 3 (1+) Abnormal Normal mg/dL [facility] Comment on above: Some pigments and me dications may cause a false positive urobilinogen. [facility] Urinalysis complete W Reflex Culture panel (U)on 10-10-2023 Appearance (U) Turbid Normal Clear [facility] Comment on above: Performed By: #### 5 8077-9 #### OMERO KNIGHT ([id number]) [facility] ([facility]) [address] [place] [address] Bilirubin (U) [Mass/Vol] Negative Normal NEGATIVE [facility] Comment on above: Performed By: #### 5 8077-9 #### OMERO KNIGHT ([id number]) [facility] ([facility]) [address] [place] [address] Color (U) Yellow Normal Light-Yellow , Yellow, Dark-Yellow [facility] Comment on above: Performed By: #### 5 8077-9 #### OMERO KNIGHT ([id number]) [facility] ([facility]) [address] [place] [address] Glucose Auto test strip (U) [Mass/Vol] Normal Normal Normal [facility] Comment on above: Performed By: #### 5 8077-9 #### OMERO KNIGHT ([id number]) [facility] ([facility]) [address] [place], [place] [id number] Ketones (U) [Mass/Vol] 10 (1+) Abnormal NEGATIVE [facility] Comment on above: Performed By: #### 5 8077-9 #### OMERO KNIGHT ([id number]) [facility] ([facility]) [address] [place] [address] Leukocyte esterase Auto test strip Ql (U) 500 Ray/???L Abnormal NEGATIVE [facility] Comment on above: Performed By: #### 5 8077-9 #### OMERO KNIGHT ([id number]) [facility] ([facility]) [address] [place] [address] Nitrite Auto test strip Ql (U) 2+ Abnormal NEGATIVE [facility] Comment on above: Performed By: #### 5 8077-9 #### OMERO KNIGHT ([id number]) [facility] ([facility]) [address] [place] [address] pH (U) 8.0 [pH] Normal 5.0, 5.5, 6.0, 6.5, 7.0, 7.5, 8.0 [facility] Comment on above: Performed By: #### 5 8077-9 #### OMERO KNIGHT ([id number]) [facility] ([facility]) [address] [place] [address] Protein (U) [Mass/Vol] 70 (1+) Abnormal NEGAT JORGE, 10 (TRACE), 20 (TRACE) [facility] Comment on above: Performed By: #### 5 8077-9 #### OMERO KNIGHT ([id number]) [facility] ([facility]) [address] [place] [address] RBC (U) [#/Vol] 0.1 (1+) Abnormal NEGATIVE [facility] Comment on above: Performed By: #### 5 8077-9 #### OMERO KNIGHT ([id number]) [facility] ([facility]) [address] [place] [address] Specific gravity (U) [Rel density] 1.027 Normal 1.005-1.035 [facility] Comment on above: Performed By: #### 5 8077-9 #### OMERO KNIGHT ([id number]) [facility] ([facility]) [address] [place] [address] Urobilinogen (U) [Mass/Vol] 3 (1+) Abnormal Normal [facility] Comment on above: Result Comment: Some pigments and medications may cause a false positive urobilinogen. Performed By: #### 5 8077-9 #### OMERO KNIGHT ([id number]) [facility] ([facility]) [address] [place] [address] Urinalysis microscopic panel Auto Ql (U)on 10-10-2023 Bacteria Auto (Urine sed) [#/Area] 1+ Abnormal NONE SEEN /HPF [facility] Crystals.amorphous Computer assisted (U) [#/Area] 1+ NONE, 1+, 2+ /HPF [facility] Epithelial cells.squamous Auto (Urine sed) [#/Area] 1-9 (SPARSE) Reference range not established. /HPF [facility] Interpretation and review of laboratory results Abnormal [facility] Mucus Auto (Urine sed) [#/Area] FEW Reference range not established. /LPF [facility] RBC Auto (Urine sed) [#/Area] 3-5 NONE, 1-2, 3-5 /HPF [facility] WBC Auto (Urine sed) [#/Area] 21-50 Abnormal 1-5, NONE /HPF [facility] Bacteria Auto (Urine sed) [#/Area] 1+ /HPF Abnormal NONE SEEN [facility] Comment on above: Performed By: #### 2 341-6 #### OMERO KNIGHT ([id number]) [facility] ([facility]) [address] [place] [address] Crystals.amorphous Computer assisted (U) [#/Area] 1+ /HPF Normal NONE, 1+, 2+ [facility] Comment on above: Performed By: #### 2 341-6 #### OMERO KNIGHT ([id number]) [facility] ([facility]) [address] [place] [address] Epithelial cells.squamous Auto (Urine sed) [#/Area] 1-9 (SPARSE) Normal Reference range not established. [facility] Comment on above: Performed By: #### 2 341-6 #### OMERO KNIGHT (09684) [facility] ([facility]) [address] [place] [address] Mucus Auto (Urine sed) [#/Area] FEW Normal Reference range not established. [facility] Comment on above: Performed By: #### 2 341-6 #### OMERO KNIGHT ([id number]) [facility] ([facility]) [address] [place] [address] 84049 RBC Auto (Urine sed) [#/Area] 3-5 Normal NONE, 1-2, 3-5 [facility] Comment on above: Performed By: #### 2 341-6 #### OMERO KNIGHT ([id number]) [facility] ([facility]) [address] [place] [address] 47215 WBC Auto (Urine sed) [#/Area] 21-50 Abnormal 1-5, NONE [facility] Comment on above: Performed By: #### 2 341-6 #### JAMIL EGUENE ([id number]) [facility] ([facility]) [address] [place] [address] XR CHEST 1 VIEWon 10-10-2023 XR CHEST 1 VIEW Interpreted By: Vlad Schneider, STUDY: XR CHEST 1 VIEW; 10/10/2023 2:03 am INDICATION: Signs/Symptoms:weakness. COMPARISON: Chest x-ray 09/08/2022 ACCESSION NUMBER(S): [id number] ORDERING CLINICIAN: FLAVIO MILES FINDINGS: Multiple overlying leads are present. CARDIOMEDIASTINAL SILHOUETTE: Cardiomediastinal silhouette is stable in size and configuration. LUNGS: No consolidation, pleural effusion or pneumothorax. ABDOMEN: No remarkable upper abdominal findings. BONES: Multilevel degenerative changes of the spine. Bilateral shoulder osteoarthrosis. IMPRESSION: No acute cardiopulmonary process. MACRO: None Signed by: Vlad Araya 10/10/2023 2:11 AM Dictation workstation: [id number] [facility] XR Chest Single viewon 10-09 No acute cardiopulmo nary process. MACRO: None Signed by: Vlad Araya 10/10/2023 2:11 AM Dictation workstation: [id number] [facility] Interpreted By: Vlad Schneider, STUDY: XR CHEST 1 VIEW; 10/10/2023 2:03 am INDICATION: Signs/Symptoms:weakness. COMPARISON: Chest x-ray 09/08/2022 ACCESSION NUMBER(S): [id number] ORDERING CLINICIAN: FLAVIO MILES FINDINGS: Multiple overlying leads are present. CARDIOMEDIASTINAL SILHOUETTE: Cardiomediastinal silhouette is stable in size and configuration. LUNGS: No consolidation, pleural effusion or pneumothorax. ABDOMEN: No remarkable upper abdominal findings. BONES: Multilevel degenerative changes of the spine. Bilateral shoulder osteoarthrosis. MM[facility]AL Vlad Araya MD - 10/10/2023 Interpreted By: Vlad Araya, STUDY: XR CHEST 1 VIEW; 10/10/2023 2:03 am INDICATION: Signs/Symptoms:weakness. COMPARISON: Chest x-ray 09/08/2022 ACCESSION NUMBER(S): [id number] ORDERING CLINICIAN: FLAVIO MILES FINDINGS: Multiple overlying leads are present. CARDIOMEDIASTINAL SILHOUETTE: Cardiomediastinal silhouette is stable in size and configuration. LUNGS: No consolidation, pleural effusion or pneumothorax. ABDOMEN: No remarkable upper abdominal findings. BONES: Multilevel degenerative changes of the spine. Bilateral shoulder osteoarthrosis. IMPRESSION: No acute cardiopulmonary process. MACRO: None Signed by: Vlad Araya 10/10/2023 2:11 AM Dictation workstation: [id number] [facility] Work Phone: Radiology Study observation (narrative) [facility] Work Phone: XR Chest Single viewOrdered By: Vlad Araya on 10-10-2023 [facility] Work Phone: ALKALINE PHOSPHATASE, ISOENZ YMESon 08-03-2023 ALP [Catalytic activity/Vol] 132 U/L High 40-120 [facility] Comment on above: Performed By: #### 1 9123-9 #### OMERO KNIGHT ([id number]) [facility] ([facility]) [facility] [place] [address] ALP Bone [Catalytic activity/Vol] 42 U/L Normal 0-55 [facility] Comment on above: Performed By: #### 1 9123-9 #### OMERO KNIGHT ([id number]) [facility] ([facility]) [facility] [place] [address] ALP Liver [Catalytic activity/Vol] 90 U/L Normal 0-94 [facility] Comment on above: Result Comment: INTE RPRETIVE INFORMATION: Alk-Phosphatase Liver Calc Bone Specific Alkaline Phosphatase (9338505) and 5'-nucleotidase (5322841) may be useful in identifying disorders of bone and liver, respectively. Performed By: #### 1 9123-9 #### OMERO KNIGHT ([id number]) [facility] ([facility]) [facility] [place] [address] ALP Other [Catalytic activity/Vol] 0 U/L Normal [facility] Comment on above: Result Comment: Perf ormed By: [employer] [address] [place] [address] Header Boss: Shayan Licona MD, PhD CLIA Number: [id number] Performed By: #### 1 9123-9 #### OMERO KNIGHT ([id number]) [facility] ([facility]) [address] [place] [address] 31472 Gamma glutamyl transferaseon 08-03-2023 Gamma glutamyl transferase [Catalytic activity/Vol] 26 U/L Normal 5-55 [facility] Comment on above: Performed By: #### 1 9123-9 #### OMERO KNIGHT ([id number]) [facility] ([facility]) [address] [place] [address] 30411 Hepatic function 2000 panelo n 08-03-2023 Albumin BCP dye [Mass/Vol] 4.1 g/dL Normal 3.4-5.0 [facility] Comment on above: Performed By: #### 1 9123-9 #### OMERO KNIGHT ([id number]) [facility] ([facility]) [address] [place] [address] 17894 ALP [Catalytic activity/Vol] 113 U/L Normal 33-136 [facility] Comment on above: Performed By: #### 1 9123-9 #### OMERO KNIGHT ([id number]) [facility] ([facility]) [address] [place] [address] 96720 ALT With P-5'-P [Catalytic activity/Vol] 12 U/L Normal 7-45 [facility] Comment on above: Result Comment: Madhavi ents treated with Sulfasalazine may generate falsely decreased results for ALT. Performed By: #### 1 9123-9 #### OMERO KNIGHT ([id number]) [facility] ([facility]) [address] [place] [address] 08710 AST With P-5'-P [Catalytic activity/Vol] 19 U/L Normal 9-39 [facility] Comment on above: Performed By: #### 1 9123-9 #### OMERO KNIGHT ([id number]) [facility] ([facility]) [address] [place] [address] 36730 Bilirubin [Mass/Vol] 0.5 mg/dL Normal 0.0-1.2 [facility] Comment on above: Performed By: #### 1 9123-9 #### OMERO KNIGHT ([id number]) [facility] ([facility]) [address] [place] [address] Bilirubin.direct [Mass/Vol] 0.1 mg/dL Normal 0.0-0.3 [facility] Comment on above: Performed By: #### 1 9123-9 #### OMERO KNIGHT ([id number]) [facility] ([facility]) [address] [place] [address] Protein [Mass/Vol] 7.1 g/dL Normal 6.4-8.2 [facility] Comment on above: Performed By: #### 1 9123-9 #### OMERO KNIGHT ([id number]) [facility] ([facility]) [address] [place] [address] XR FOOT RIGHT 3+ VIEWSon XR FOOT RIGHT 3+ VIEWS Interpreted By: Conner Burk, STUDY: XR FOOT RIGHT 3+ VIEWS; ; 06/10/2023 6:08 pm INDICATION: Signs/Symptoms:TRAUMA. COMPARISON: None. ACCESSION NUMBER(S): [id number] ORDERING CLINICIAN: FLAVIO MILES FINDINGS: Three radiographs of the right foot are provided for interpretation. Marked soft tissue swelling from the likely hematoma overlies the dorsum of the foot, without evidence of displaced fracture or traumatic malalignment. No radiopaque foreign body is identified. Degenerative changes are present in the forefoot, hindfoot and ankle with joint space narrowing and osteophytosis. IMPRESSION: 1. Marked soft tissue swelling from likely hematoma overlies the dorsum of the foot, along the metatarsals, without evidence of displaced fracture, traumatic malalignment, or radiopaque foreign body. 2. Degenerative changes of the right foot with joint space narrowing and osteophytosis. MACRO: None Signed by: Conner Burk 06/10/2023 6:36 PM Dictation workstation: [id number] [facility] XR Foot - right 3 Viewson 1. Marked soft tissu e swelling from likely hematoma overlies the dorsum of the foot, along the metatarsals, without evidence of displaced fracture, traumatic malalignment, or radiopaque foreign body. 2. Degenerative changes of the right foot with joint space narrowing and osteophytosis. MACRO: None Signed by: Cnoner Burk 06/10/2023 6:36 PM Dictation workstation: [id number] [facility] Interpreted By: Conner Burk, STUDY: XR FOOT RIGHT 3+ VIEWS; ; 06/10/2023 6:08 pm INDICATION: Signs/Symptoms:TRAUMA. COMPARISON: None. ACCESSION NUMBER(S): [id number] ORDERING CLINICIAN: FLAVIO MILES FINDINGS: Three radiographs of the right foot are provided for interpretation. Marked soft tissue swelling from the likely hematoma overlies the dorsum of the foot, without evidence of displaced fracture or traumatic malalignment. No radiopaque foreign body is identified. Degenerative changes are present in the forefoot, hindfoot and ankle with joint space narrowing and osteophytosis. [facility] Helena Burk v, MD - 06/10/2023 Interpreted By: Conner Burk, STUDY: XR FOOT RIGHT 3+ VIEWS; ; 06/10/2023 6:08 pm INDICATION: Signs/Symptoms:TRAUMA. COMPARISON: None. ACCESSION NUMBER(S): [id number] ORDERING CLINICIAN: FLAVIO MILES FINDINGS: Three radiographs of the right foot are provided for interpretation. Marked soft tissue swelling from the likely hematoma overlies the dorsum of the foot, without evidence of displaced fracture or traumatic malalignment. No radiopaque foreign body is identified. Degenerative changes are present in the forefoot, hindfoot and ankle with joint space narrowing and osteophytosis. IMPRESSION: 1. Marked soft tissue swelling from likely hematoma overlies the dorsum of the foot, along the metatarsals, without evidence of displaced fracture, traumatic malalignment, or radiopaque foreign body. 2. Degenerative changes of the right foot with joint space narrowing and osteophytosis. MACRO: None Signed by: Conner Burk 06/10/2023 6:36 PM Dictation workstation: [id number] [facility] Work Phone: Radiology Study observation (narrative) [facility] Work Phone: XR Foot - right 3 ViewsOrder ed By: Conner Burk on 06-10-2023 [facility] Work Phone: ALKALINE PHOSPHATASE, ISOENZ YMESon 05-21-2023 ALP [Catalytic activity/Vol] 158 U/L High 40-120 [facility] Comment on above: Performed By: #### 1 9123-9 #### OMERO KNIGHT ([id number]) [facility] ([facility]) [address] [place] [address] 08050 ALP Bone [Catalytic activity/Vol] 60 U/L High 0-55 [facility] Comment on above: Performed By: #### 1 9123-9 #### OMERO KNIGHT ([id number]) [facility] ([facility]) [address] [place] [address] 89894 ALP Liver [Catalytic activity/Vol] 98 U/L High 0-94 [facility] Comment on above: Result Comment: INTE RPRETIVE INFORMATION: Alk-Phosphatase Liver Calc Bone Specific Alkaline Phosphatase (1512696) and 5'-nucleotidase (0607902) may be useful in identifying disorders of bone and liver, respectively. Performed By: #### 1 9123-9 #### OMERO KNIGHT ([id number]) [facility] ([facility]) [address] [place] [address] 35590 ALP Other [Catalytic activity/Vol] 0 U/L Normal [facility] Comment on above: Result Comment: Perf ormed By: [employer] [address] [place] [address] 29465 Header Boss: Shayan Licona MD, PhD CLIA Number: [id number] Performed By: #### 1 9123-9 #### OMERO KNIGHT ([id number]) [facility] ([facility]) [address] [place] [address] 71156 CBC panel Auto (Bld)on 05-21 Erythrocyte distribution width (RBC) [Ratio] 20.9 % High 11.5-14.5 [facility] Comment on above: Performed By: #### 5 8410-2 #### OMERO KNIGHT ([id number]) [facility] ([facility]) [address] [place] [address] 25891 Hematocrit (Bld) [Volume fraction] 36.6 % Normal 36.0-46.0 [facility] Comment on above: Performed By: #### 5 8410-2 #### OMERO KNIGHT (49432) [facility] ([facility]) [address] [place], [place] [address] Hemoglobin (Bld) [Mass/Vol] 11.0 g/dL Low 12.0-16.0 [facility] Comment on above: Performed By: #### 5 8410-2 #### OMERO KNIGHT ([id number]) [facility] ([facility]) [address] [place] [address] 75510 MCH (RBC) [Entitic mass] 24.9 pg Low 26.0-34.0 [facility] Comment on above: Performed By: #### 5 8410-2 #### OMERO KNIGHT ([id number]) [facility] ([facility]) [address] [place] [address] 74155 MCHC (RBC) [Mass/Vol] 30.1 g/dL Low 32.0-36.0 [facility] Comment on above: Performed By: #### 5 8410-2 #### OMERO KNIGHT (33644) [facility] ([facility]) [address] [place] [address] 45011 MCV (RBC) [Entitic vol] 83 fL Normal 80-100 [facility] Comment on above: Performed By: #### 5 8410-2 #### OMERO KNIGHT ([id number]) [facility] ([facility]) [address] [place] [address] 51150 Nucleated RBC/100 WBC (Bld) [Ratio] 0.0 /100 WBCs Normal 0.0-0.0 [facility] Comment on above: Performed By: #### 5 8410-2 #### OMERO KNIGHT (65854) [facility] ([facility]) [address] [place] [address] 87314 Platelets (Bld) [#/Vol] 261 x10*3/uL Normal 150-450 [facility] Comment on above: Performed By: #### 5 8410-2 #### OMERO KNIGHT ([id number]) [facility] ([facility]) [address] [place] [address] 59683 RBC (Bld) [#/Vol] 4.41 x10*6/uL Normal 4.00-5.20 [facility] Comment on above: Performed By: #### 5 8410-2 #### OMERO KNIGHT ([id number]) [facility] ([facility]) [address] [place] [address] 70670 WBC (Bld) [#/Vol] 10.2 x10*3/uL Normal 4.4-11.3 [facility] Comment on above: Performed By: #### 5 8410-2 #### OMERO KNIGHT ([id number]) [facility] ([facility]) [address] [place] [address] Calcidiolon 05-21-2023 25-hydroxyvitamin D3 [Mass/Vol] 21 ng/mL Low 30-100 [facility] Comment on above: Order Comment: Defic iency: < 20 ng/mlInsufficiency: 20-29 ng/mlSufficiency: 30-100 ng/mlThis assay accurately quantifies the sum of Vitamin D3, 25-Hydroxy and Vitamin D2,25-Hydroxy. Performed By: #### 1 9123-9 #### OMERO KNIGHT ([id number]) [facility] ([facility]) [address] [place], [place] [phone] Comprehensive metabolic 2000 panelon 05-21-2023 Albumin BCP dye [Mass/Vol] 3.6 g/dL Normal 3.4-5.0 [facility] Comment on above: Performed By: #### 2 4323-8 #### OMERO KNIGHT ([id number]) [facility] ([facility]) [address] [place] [address] 55689 ALP [Catalytic activity/Vol] 140 U/L High 33-136 [facility] Comment on above: Performed By: #### 2 4323-8 #### OMERO KNIGHT ([id number]) [facility] ([facility]) [address] [place] [address] ALT With P-5'-P [Catalytic activity/Vol] 8 U/L Normal 7-45 [facility] Comment on above: Result Comment: Madhavi ents treated with Sulfasalazine may generate falsely decreased results for ALT. Performed By: #### 2 4323-8 #### OMERO KNIGHT ([id number]) [facility] ([facility]) [address] [place] [address] Anion gap [Moles/Vol] 12 mmol/L Normal 10-20 [facility] Comment on above: Performed By: #### 2 432-8 #### OMERO KNIGHT ([id number]) [facility] ([facility]) [address] [place] [address] 96132 AST With P-5'-P [Catalytic activity/Vol] 16 U/L Normal 9-39 [facility] Comment on above: Performed By: #### 2 432-8 #### OMERO KNIGHT (85385) [facility] ([facility]) [address] [place] [address] 20360 Bilirubin [Mass/Vol] 0.3 mg/dL Normal 0.0-1.2 [facility] Comment on above: Performed By: #### 2 432-8 #### OMERO KNIGHT (72906) [facility] ([facility]) [address] [place] [address] 34105 Calcium [Mass/Vol] 9.2 mg/dL Normal 8.6-10.3 [facility] Comment on above: Performed By: #### 2 4323-8 #### OMERO KNIGHT (67809) [facility] ([facility]) [address] [place] [address] 91207 Chloride [Moles/Vol] 100 mmol/L Normal 98-107 [facility] Comment on above: Performed By: #### 2 4323-8 #### OMERO KNIGHT (60732) [facility] ([facility]) [address] [place] [address] 76910 CO2 [Moles/Vol] 30 mmol/L Normal 21-32 [facility] Comment on above: Performed By: #### 2 432-8 #### OMERO KNIGHT ([id number]) [facility] ([facility]) [address] [place] [address] 96176 Creatinine [Mass/Vol] 1.00 mg/dL Normal 0.50-1.05 [facility] Comment on above: Performed By: #### 2 4322-8 #### OMERO KNIGHT (23013) [facility] ([facility]) [address] [place] [address] 59873 Glomerular filtration rate/1.73 sq M.predicted 59 mL/min/1.73m*2 Low >60 [facility] Comment on above: Result Comment: Calc ulations of estimated GFR are performed using the 2020 CKD-EPI Study Refit equation without the race variable for the IDMS-Traceable creatinine methods. https://jasn.asnjournals.org/content/early//ASN.01692 00455 Performed By: #### 2 4322-8 #### OMERO KNIGHT (37900) [facility] ([facility]) [address] [place] [address] 94788 Glucose [Mass/Vol] 119 mg/dL High 74-99 [facility] Comment on above: Performed By: #### 2 432-8 #### OMERO KNIGHT (23478) [facility] ([facility]) [address] [place] [address] 34012 Potassium [Moles/Vol] 4.4 mmol/L Normal 3.5-5.3 [facility] Comment on above: Performed By: #### 2 432-8 #### OMERO KNIGHT ([id number]) [facility] ([facility]) [address] [place] [address] 32145 Protein [Mass/Vol] 6.4 g/dL Normal 6.4-8.2 [facility] Comment on above: Performed By: #### 2 4322-8 #### OMERO KNIGHT (13551) [facility] ([facility]) [address] [place] [address] Sodium [Moles/Vol] 138 mmol/L Normal 136-145 [facility] Comment on above: Performed By: #### 2 4323-8 #### OMERO KNIGHT (55275) [facility] ([facility]) [address] [place] [address] 01570 Urea nitrogen [Mass/Vol] 15 mg/dL Normal 6-23 [facility] Comment on above: Performed By: #### 2 4323-8 #### OMERO KNIGHT ([id number]) [facility] ([facility]) [address] [place] [address] 35709 Ferritinon 05-21-2023 Ferritin [Mass/Vol] 34 ng/mL Normal 8-150 [facility] Comment on above: Performed By: #### 2 276-4 #### OMERO KNIGHT (18753) [facility] ([facility]) [address] [place] [address] 78485 Iron and Iron binding capaci ty panelon 05-21-2023 Iron [Mass/Vol] 97 ug/dL Normal 35-150 [facility] Comment on above: Performed By: #### 5 0190-8 #### OMERO KNIGHT (28479) [facility] ([facility]) [address] [place] [address] 17629 Iron binding capacity [Mass/Vol] 346 ug/dL Normal 240-445 [facility] Comment on above: Performed By: #### 5 0190-8 #### OMERO KNIGHT (60320) [facility] ([facility]) [address] [place] [address] 87184 Iron binding capacity.unsaturated [Mass/Vol] 249 ug/dL Normal 110-370 [facility] Comment on above: Performed By: #### 5 0190-8 #### OMERO KNIGHT (55699) [facility] ([facility]) [address] [place] [address] 55606 Iron saturation [Mass fraction] 28 % Normal 25-45 [facility] Comment on above: Performed By: #### 5 0190-8 #### OMERO KNIGHT (80533) [facility] ([facility]) [address] [place] [address] CBC panel Auto (Bld)on 03-06 Erythrocyte distribution width (RBC) [Ratio] 15.1 % High 11.5-14.5 [facility] Comment on above: Performed By: #### 5 8410-2 #### OMREO KNIGHT ([id number]) [facility] ([facility]) [address] [place] [address] Hematocrit (Bld) [Volume fraction] 32.6 % Low 36.0-46.0 [facility] Comment on above: Performed By: #### 5 8410-2 #### OMERO KNIGHT ([id number]) [facility] ([facility]) [address] [place] [address] Hemoglobin (Bld) [Mass/Vol] 9.3 g/dL Low 12.0-16.0 [facility] Comment on above: Performed By: #### 5 8410-2 #### OMERO KNIGHT ([id number]) [facility] ([facility]) [address] [place] [address] MCH (RBC) [Entitic mass] 22.0 pg Low 26.0-34.0 [facility] Comment on above: Performed By: #### 5 8410-2 #### OMERO KNIGHT ([id number]) [facility] ([facility]) [address] [place] [address] MCHC (RBC) [Mass/Vol] 28.5 g/dL Low 32.0-36.0 [facility] Comment on above: Performed By: #### 5 8410-2 #### OMERO KNIGHT ([id number]) [facility] ([facility]) [address] [place] [address] MCV (RBC) [Entitic vol] 77 fL Low 80-100 [facility] Comment on above: Performed By: #### 5 8410-2 #### OMERO KNIGHT ([id number]) [facility] ([facility]) [address] [place] [address] 75330 Nucleated RBC/100 WBC (Bld) [Ratio] 0.0 /100 WBCs Normal 0.0-0.0 [facility] Comment on above: Performed By: #### 5 8410-2 #### OMERO KNIGHT ([id number]) [facility] ([facility]) [address] [place] [address] 15019 Platelets (Bld) [#/Vol] 310 x10*3/uL Normal 150-450 [facility] Comment on above: Performed By: #### 5 8410-2 #### OMERO KNIGHT ([id number]) [facility] ([facility]) [address] [place] [address] 84072 RBC (Bld) [#/Vol] 4.22 x10*6/uL Normal 4.00-5.20 [facility] Comment on above: Performed By: #### 5 8410-2 #### OMERO KNIGHT ([id number]) [facility] ([facility]) [address] [place] [address] 39213 WBC (Bld) [#/Vol] 12.2 x10*3/uL High 4.4-11.3 [facility] Comment on above: Performed By: #### 5 8410-2 #### OMERO KNIGHT ([id number]) [facility] ([facility]) [address] [place] [address] Cobalaminson 03-06-2023 Cobalamin (Vitamin B12) [Mass/Vol] 352 pg/mL Normal 211-911 [facility] Comment on above: Performed By: #### 2 132-9 #### OMERO KNIGHT ([id number]) [facility] ([facility]) [address] [place] [address] 19119 Comprehensive metabolic 2000 panelon 03-06-2023 Albumin BCP dye [Mass/Vol] 3.8 g/dL Normal 3.4-5.0 [facility] Comment on above: Performed By: #### 2 4323-8 #### OMERO KNIGHT ([id number]) [facility] ([facility]) [address] [place] [address] 67927 ALP [Catalytic activity/Vol] 141 U/L High 33-136 [facility] Comment on above: Performed By: #### 2 4323-8 #### OMERO KNIGHT ([id number]) [facility] ([facility]) [address] [place] [address] ALT With P-5'-P [Catalytic activity/Vol] 9 U/L Normal 7-45 [facility] Comment on above: Result Comment: Madhavi ents treated with Sulfasalazine may generate falsely decreased results for ALT. Performed By: #### 2 4323-8 #### OMERO KNIGHT ([id number]) [facility] ([facility]) [address] [place] [address] 61515 Anion gap [Moles/Vol] 12 mmol/L Normal 10-20 [facility] Comment on above: Performed By: #### 2 432-8 #### OMERO KNIGHT ([id number]) [facility] ([facility]) [address] [place] [address] 86743 AST With P-5'-P [Catalytic activity/Vol] 16 U/L Normal 9-39 [facility] Comment on above: Performed By: #### 2 4322-8 #### OMERO KNIGHT ([id number]) [facility] ([facility]) [address] [place] [address] 42011 Bilirubin [Mass/Vol] 0.3 mg/dL Normal 0.0-1.2 [facility] Comment on above: Performed By: #### 2 432-8 #### OMERO KNIGHT ([id number]) [facility] ([facility]) [address] [place] [address] 96785 Calcium [Mass/Vol] 9.1 mg/dL Normal 8.6-10.3 [facility] Comment on above: Performed By: #### 2 432-8 #### OMERO KNIGHT ([id number]) [facility] ([facility]) [address] [place] [address] 10623 Chloride [Moles/Vol] 103 mmol/L Normal 98-107 [facility] Comment on above: Performed By: #### 2 4323-8 #### OMERO KNIGHT ([id number]) [facility] ([facility]) [address] [place] [address] 28840 CO2 [Moles/Vol] 28 mmol/L Normal 21-32 [facility] Comment on above: Performed By: #### 2 4323-8 #### OMERO KNIGHT ([id number]) [facility] ([facility]) [address] [place] [address] 67910 Creatinine [Mass/Vol] 0.83 mg/dL Normal 0.50-1.05 [facility] Comment on above: Performed By: #### 2 4323-8 #### OEMRO KNIGHT ([id number]) [facility] ([facility]) [address] [place] [address] 42170 GFR/1.73 sq M.predicted MDRD (S/P/Bld) [Vol rate/Area] 74 mL/min/1.73m*2 Normal >60 [facility] Comment on above: Result Comment: Calc ulations of estimated GFR are performed using the 2020 CKD-EPI Study Refit equation without the race variable for the IDMS-Traceable creatinine methods. https://jasn.asnjournals.org/content//ASN.37602 61500 Performed By: #### 2 4323-8 #### OMERO KNIGHT ([id number]) [facility] ([facility]) [address] [place] [address] 58448 Glucose [Mass/Vol] 143 mg/dL High 74-99 [facility] Comment on above: Performed By: #### 2 4323-8 #### OMERO KNIGHT ([id number]) [facility] ([facility]) [address] [place] [address] 12635 Potassium [Moles/Vol] 4.3 mmol/L Normal 3.5-5.3 [facility] Comment on above: Performed By: #### 2 4323-8 #### OMERO KNIGHT ([id number]) [facility] ([facility]) [address] [place] [address] 49234 Protein [Mass/Vol] 6.9 g/dL Normal 6.4-8.2 [facility] Comment on above: Performed By: #### 2 4323-8 #### OMERO KNIGHT ([id number]) [facility] ([facility]) [address] [place] [address] Sodium [Moles/Vol] 139 mmol/L Normal 136-145 [facility] Comment on above: Performed By: #### 2 4323-8 #### OMERO KNIGHT ([id number]) [facility] ([facility]) [address] [place] [address] Urea nitrogen [Mass/Vol] 22 mg/dL Normal 6-23 [facility] Comment on above: Performed By: #### 2 4323-8 #### OMERO KNIGHT ([id number]) [facility] ([facility]) [facility] [place] [address] HbA1c (Bld) [Mass fraction]o n 03-06-2023 Average glucose Estimated from glycated hemoglobin (Bld) [Mass/Vol] 160 mg/dL Normal Not Established [facility] Comment on above: Order Comment: Diagn osis of Diabetes-Adults Non-Diabetic: < or = 5.6% Increased risk for developing diabetes: 5.7-6.4% Diagnostic of diabetes: > or = 6.5% Monitoring of Diabetes Age (y)....................... Therapeutic Goal (%) Adults: >18.........................<7.0 Pediatrics: 13-18...................<7.5 Pediatrics: 7-12....................<8.0 Pediatrics: 0-6..................... 7.5-8.5 [place] [employer]. Diabetes Care 33(S1), Apr 2009 Performed By: #### 4 548-4 #### OMERO KNIGHT ([id number]) [facility] ([facility]) [address] [place] [id number] Hemoglobin A1c/Hemoglobin.to zac 03-06-2023 HbA1c (Bld) [Mass fraction] 7.2 % High see below [facility] Comment on above: Order Comment: Diagn osis of Diabetes-Adults Non-Diabetic: < or = 5.6% Increased risk for developing diabetes: 5.7-6.4% Diagnostic of diabetes: > or = 6.5% Monitoring of Diabetes Age (y)....................... Therapeutic Goal (%) Adults: >18.........................<7.0 Pediatrics: 13-18...................<7.5 Pediatrics: 7-12....................<8.0 Pediatrics: 0-6..................... 7.5-8.5 [place] [employer]. Diabetes Care 33(S1), Apr 2009 Performed By: #### 4 548-4 #### JAMIL EUGENE ([id number]) [facility] ([facility]) [facility] [place] [id number] Lipid 1996 panelon 3 Cholesterol [Mass/Vol] 125 mg/dL Normal 0-199 Un [facility] Comment on above: Result Comment: Age Desirable Borderline High High 0-19 Y 0 - 169 170 - 199 >/= 200 20-24 Y 0 - 189 190 - 224 >/= 225 >24 Y 0 - 199 200 - 239 >/= 240 All ranges are based on fasting samples. Specific therapeutic targets will vary based on patient-specific cardiac risk. Pediatric guidelines reference:Pediatrics 2011, 128(S5).Adult guidelines reference: NCEP ATPIII Guidelines,BILLY 2001, 258:2486-97 Venipuncture immediately after or during the administration of Metamizole may lead to falsely low results. Testing should be performed immediately prior to Metamizole dosing. Performed By: #### 2 7661-1 #### OMERO KNIGHT ([id number]) [facility] ([facility]) [facility] [place] [address] Cholesterol in HDL [Mass/Vol] 55.0 mg/dL Normal [facility] Comment on above: Result Comment: Age Very Low Low Normal High 0-19 Y < 35 < 40 40-45 ---- 20-24 Y ---- < 40 >45 ---- >24 Y ---- < 40 40-60 >60 Performed By: #### 2 4331-1 #### OMERO KNIGHT ([id number]) [facility] ([facility]) [address] [place] [address] 23432 Cholesterol in LDL [Mass/Vol] 48 mg/dL Normal <=99 [facility] Comment on above: Result Comment: Near Borderline AGE Desirable Optimal High High Very High 0-19 Y 0 - 109 --- 110-129 >/= 130 ---- 20-24 Y 0 - 119 --- 120-159 >/= 160 ---- >24 Y 0 - 99 100-129 130-159 160-189 >/=190 Performed By: #### 2 4331-1 #### OMERO KNIGHT ([id number]) [facility] ([facility]) [address] [place] [address] 51873 Cholesterol in VLDL [Mass/Vol] 22 mg/dL Normal 0-40 [facility] Comment on above: Performed By: #### 2 4331-1 #### OMERO KNIGHT ([id number]) [facility] ([facility]) [address] [place] [address] 93486 CHOLESTEROL/HDL RATIO 2.3 Normal [facility] Comment on above: Result Comment: Ref Values Desirable < 3.4 High Risk > 5.0 Performed By: #### 2 4331-1 #### OMERO KNIGHT ([id number]) [facility] ([facility]) [address] [place] [address] 86797 NON HDL CHOLESTEROL 70 mg/dL Normal 0-149 [facility] Comment on above: Result Comment: Age Desirable Borderline High High Very High 0-19 Y 0 - 119 120 - 144 >/= 145 >/= 160 20-24 Y 0 - 149 150 - 189 >/= 190 ---- >24 Y 30 mg/dL above LDL Cholesterol goal Performed By: #### 2 4331-1 #### OMERO KNIGHT ([id number]) [facility] ([facility]) [address] [place] [address] Triglyceride [Mass/Vol] 111 mg/dL Normal 0-149 [facility] Comment on above: Result Comment: Age Desirable Borderline High High Very High 0 D-90 D 19 - 174 ---- ---- ---- 91 D- 9 Y 0 - 74 75 - 99 >/= 100 ---- 10-19 Y 0 - 89 90 - 129 >/= 130 ---- 20-24 Y 0 - 114 115 - 149 >/= 150 ---- >24 Y 0 - 149 150 - 199 200- 499 >/= 500 Venipuncture immediately after or during the administration of Metamizole may lead to falsely low results. Testing should be performed immediately prior to Metamizole dosing. Performed By: #### 2 4331-1 #### OMERO KNIGHT ([id number]) [facility] ([facility]) [address] [place] [address] Magnesiumon 03-06-2023 Magnesium [Mass/Vol] 1.30 mg/dL Low 1.60-2.40 [facility] Comment on above: Performed By: #### 1 9123-9 #### OMERO KNIGHT ([id number]) [facility] ([facility]) [address] [place] [address] CORONAVIRUS 2019 BY PCRon SARS-CoV-2 (COVID-19) RNA SEFERINO+probe Ql (Unsp spec) Not detected Normal Not Detected [facility] Comment on above: Result Comment: . This test has received FDA Emergency Use Authorization (EUA) and has been verified by [facility]. This test is only authorized for the duration of time that circumstances exist to justify the authorization of the emergency use of in vitro diagnostic tests for the detection of SARS-CoV-2 virus and/or diagnosis of COVID-19 infection under section 564(b)(1) of the Act, 21 U.S.C. 360bbb-3(b)(1), unless the authorization is terminated or revoked sooner. [facility] is certified under CLIA-88 as qualified to perform high complexity testing. Testing is performed in the [facility] laboratory located at [address] [place] [address]. SARS-CoV-2/Flu/RSV Multiplex Test: Fact sheet for providers: https://www.fda.gov/media/288305/download Fact sheet for patients: https://www.fda.gov/media/613438/download Performed By: #### C OV19 #### [place] [address] Lab Specimen Source Nasal, Nasopharyngeal Normal [facility] Comment on above: Performed By: #### C OV19 #### [place] [address] Covid 19 Resultson 3 SARS-CoV-2 (COVID-19) RNA SEFERINO+probe Ql (Unsp spec) NEGATIVE COVID-19 Test Coronaviruses are common world-wide and are the cause of many common colds. SARS-COV2 is a new coronavirus that began circulating worldwide in 2019 so we are calling it COVID-19. It has been estimated that four out of five patients with COVID-19 will recover at home without the need for medical attention. Symptoms of COVID-19 may include cough, fever, shortness of breath, loss of taste or smell and other flu-like symptoms including chills, sore muscles, sore throat, and headache. Severe illness is more common in older people and people with other health problems such as high blood pressure, obesity, and immune system problems. If the test is positive, you have COVID-19. You will be contacted by the ordering physicians office and instructed to remain on home isolation, in accordance with CDC guidelines. You may also be contacted by the [facility] to see if any of your close contacts may have been exposed to the virus and need to quarantine. If the test is negative, you likely do not have COVID-19 at this time, but you still may have a different illness that can spread to other people (like Influenza, or the Flu) and could still be at risk for getting COVID-19. We recommend that you stay away from other people to limit the spread of illness until your symptoms are improving and you are fever-free for 24 hours without the use of fever lowering medications such as acetaminophen or ibuprofen. No test is 100% accurate so if you are still concerned you may have COVID-19, talk to your doctor about the need to continue to stay away from others. Medicines Unless your provider told you not to use the following: Acetaminophen (Tylenol and others) is generally safe. Anti-inflammatory medications, such as Ibuprofen (Advil or Motrin) or Naproxen (Aleve) can also be used. Tplk-nmi-zhkvtdm cough and cold medicines can be used according to the instructions on the package. Some oxzq-kak-rthqhhi medicines also contain acetaminophen. Make sure you are not taking more than your recommended dose. For those not hospitalized, there is no specific treatment available for this illness. Antibiotics do not treat Coronaviruses. Follow-Up Follow up with your doctor by scheduling a virtual visit or consider follow-up at one of our urgent care fever clinics. If you are having difficulty breathing, or are very weak and having difficulty standing, this is a medical emergency. Call 911 or have someone take you to the nearest emergency room immediately. If possible, wear a facemask. Additional guidance from the CDC for patients who tested POSITIVE for COVID-19 How to isolate: Isolate yourself in a specific room at home and limit your contact with others. Use a separate bathroom from other members of the household, when possible. Leave home only to get essential medical care. Do not go to work, school or public areas. Avoid using public transportation, ride-sharing, or taxis. Restrict contact with pets and other animals. If you must care for your pet or be around animals while you are sick, wash your hands before and after your interaction and wear a facemask. Make sure that shared spaces in the home have good airflow, such as by an air conditioner or an opened window, weather permitting. Personal Hygiene Procedures: Wear a face mask when in the same room as other people or pets. If a face mask interferes with your breathing, others should wear a mask when sharing space with you. Frequent hand-washing: wash your hands with soap and water for at least 20 seconds. If soap and water are not available, use alcohol-based hand review trainer. Avoid touching your eyes, nose, and mouth with unwashed hands. Household Hygiene Procedures: Avoid sharing personal household items such as dishes, glassware, cups, eating utensils, towels or bedding with other people or pets in your home. After use, these items should be washed with soap and hot water. Disinfect all high-touch surfaces every day with antibacterial cleaning solutions such as Lysol wipes, bleach, cleansers, etc. High-touch surfaces include tabletops, doorknobs, bathroom fixtures, toilets, phones, keyboards, tablets and bedside tables. Immediately clean any surfaces that may have blood, poop or body fluids on them, using antibacterial cleaning solutions such as Lysol wipes, bleach, cleansers, etc. If clothing or bedding come into contact with blood, poop or body fluids, they should be washed immediately. Follow the directions on the laundry detergent and clothing labels but hot water is recommended when possible. Stopping home isolation precautions: If possible, consult your doctor before stopping home isolation precautions. According to the CDC, you can discontinue home isolation precautions when you have met both of these criteria: Your fever and respiratory symptoms have been gone for 24 rai (more content not included)... Normal [facility] Daily Progress Note-General Internal Medicineon 09-15-2022 Daily Progress Note-General Internal Medicine Service: General Internal Medicine Subjective Data: DARYN SHAH is a 76 year old Female who is Hospital Day # 8. Additional Information: Patient seen and examined at bedside. Patient doing well. No complaints today. Getting ready to go to rehab today. Objective Data: Objective Information: T PRBPMAPSpO2 [id number]/5994% Date/Time09/15 8: 8: 8: 8: 8:00 Range(36.5C - 36.8C ) (78 - 87 ) (16 - 16 ) (94 - 141 )/ (59 - 82 ) (94% - 97% ) Pain reported at 09/15 8:45: 0 = None ---- Intake and Output ----- Mn/Dy/Year TimeIntakeOutputNet Sep 14, 2022 10:00 [id number] Sep 14, 2022 2:00 [id number] The Intake and Output Totals for the last 24 hours are: [facility] [id number] Physical Exam by System: Constitutional: Well developed, obese , awake/alert/oriented x3, no distress, alert and cooperative Eyes: PERRL, EOMI, clear sclera Head/Neck: Neck supple, no apparent injury, thyroid without mass or tenderness, No JVD, trachea midline, no bruits Respiratory/Thorax: Patent airways, CTAB, normal breath sounds with good chest expansion, thorax symmetric Cardiovascular: Regular, rate and rhythm, no murmurs, 2+ equal pulses of the extremities, normal S 1and S 2 Gastrointestinal: Nondistended, soft, non-tender, no rebound tenderness or guarding, no masses palpable, no organomegaly, +BS, no bruits Musculoskeletal: Left thigh cellulitis improved well , redness decreased, tenderness decreased Neurological: alert and oriented x3, intact senses, motor, response and reflexes, normal strength Psychological: Appropriate mood and behavior Skin: Warm and dry, no lesions, no rashes Medication: Medications: Continuous Medications -------- No continuous medications are active Scheduled Medications -------- 1. Amoxicillin 875 mg - Clavulanate 125 m tablet(s) Oral Every 12 Hours 2. Atenolol: 50 mg Oral 2 Times a Day 3. Atorvastatin: 40 mg Oral Daily 4. Famotidine: 20 mg Oral 2 Times a Day 5. Ferrous Sulfate: 325 mg Oral 2 Times a Day 6. Insulin Lispro Moderate Corrective Scale: unit(s) SubCutaneous 3 Times a Day Before Meals 7. Lisinopril: 5 mg Oral Daily 8. LORazepam: 1 mg Oral At Bedtime 9. Potassium Chloride Extended Release: 10 mEq Oral Daily 10. Rivaroxaban: 20 mg Oral Daily 1800 11. Triamterene 37.5 mg- hydroCHLOROthiazide 25 mg - PEDS: 1 tablet(s) Oral Daily 12. Venlafaxine Extended Release: 150 mg Oral Daily PRN Medications -------- 1. Acetaminophen: 650 mg Oral Every 4 Hours 2. Dextrose 50% in Water Injectable: 25 gram(s) IntraVenous Push Every 15 Minutes 3. Glucagon Injectable: 1 mg IntraMuscular Every 15 Minutes 4. guaiFENesin Oral Liquid: 400 mg Oral Every 4 Hours 5. Ondansetron Injectable: 4 mg IntraVenous Push Every 4 Hours 6. Polyethylene Glycol: 17 gram(s) Oral Daily 7. Sodium Chloride 0.9% Injectable Flush: 10 mL IntraVenous Flush Every 8 Hours and as Needed Recent Lab Results: Results: CBC: 09/13/2022 05:54 \ Hgb / \ 8.1 L / WBC Plt 11.7 H 290 / Hct \ / 28.3 L \ RBC: 4.02 MCV: 70 L Neutrophil %: 63.1 BMP: 09/13/2022 05:54 NA+ Cl- BUN / 134 L 96 L 13 / -------- Glucose --- 146 H K+ HCO3- Creat \ 3.6 30 0.88 \ Calcium : 8.5 L Anion Gap : 12 Radiology Results: Results: Conclusion: CONCLUSIONS: Right Lower Venous: No evidence of acute deep vein thrombus visualized in the right lower extremity. Left Lower Venous: No evidence of acute deep vein thrombus visualizedin the left lower extremity. Imaging & Doppler Findings: Right Compress Thrombus SFJ Yes None Left Compress Thrombus SFJ Yes None Right Compressible Thrombus Flow Distal External Iliac Yes None CFV Yes None Spontaneous/Phasic PFV Yes None FV Proximal Yes None Spontaneous/Phasic FV Mid Yes None FV Distal Yes None Popliteal Yes None Spontaneous/Phasic Peroneal Yes None PTV Yes None Left Compress Thrombus Flow Distal External IliacYes None CFV Yes None Spontaneous/Phasic PFV Yes None FV Proximal Yes None Spontaneous/Phasic FV Mid Yes None FV Distal Yes None Popliteal Yes None Spontaneous/Phasic Peroneal Yes None PTV Yes None [id number] Don Rico MD Final [facility] Venous Duplex Ultrasound for DVT [Sep 11 2022 7:14PM] Conclusion: CONCLUSIONS: 1. Left ventricular systolic function is normal with a 55% estimated ejection fraction. 2. The left atrium is severely dilated. 3. Findings appear consistent with mild aortic stenosis. QUANTITATIVE DATA SUMMARY: 2D MEASUREMENTS: Normal Ranges: Ao Root d: 2.80 cm (2.0-3.7cm) LAs: 4.30 cm (2.7-4 (more content not included)... Normal [facility] GLUCOSE-POCTon 09-15-2022 Glucose [Mass/Vol] 141 mg/dL High 74 - 99 [facility] Comment on above: Performed By: #### B MP #### [address] [address] Glucose [Mass/Vol] 165 mg/dL High 74 - 99 [facility] Comment on above: Performed By: #### G ROLLY #### [address] [address] BASIC METABOLIC PANELon Anion gap [Moles/Vol] 10 mmol/L Normal 10 - 20 [facility] Comment on above: Performed By: #### B MP ####[address] [address] Calcium [Mass/Vol] 8.4 mg/dL Low 8.6 - 10.3 [facility] Comment on above: Performed By: #### B MP ####[address] [address] Chloride [Moles/Vol] 96 mmol/L Low 98 - 107 [facility] Comment on above: Performed By: #### B MP ####[address] [address] Creatinine [Mass/Vol] 0.96 mg/dL Normal 0.50 - 1.05 [facility] Comment on above: Performed By: #### B MP ####[address] [address] GFR/1.73 sq M.predicted among non-blacks MDRD (S/P/Bld) [Vol rate/Area] 62 mL/min/{1.73_m2} Normal >90 [facility] Comment on above: Result Comment: CALC ULATIONS OF ESTIMATED GFR ARE PERFORMED USING THE 2020 CKD-EPI STUDY REFIT EQUATION WITHOUT THE RACE VARIABLE FOR THE IDMS-TRACEABLE CREATININE METHODS. https://jasn.asnjournals.org/content/early//ASN.51172 66697 Performed By: #### B MP ####[address] [address] Glucose [Mass/Vol] 153 mg/dL High 74 - 99 [facility] Comment on above: Performed By: #### B MP ####[address] [address] HCO3 (Bld) [Moles/Vol] 31 mmol/L Normal 21 - 32 [facility] Comment on above: Performed By: #### B MP ####[address] [address] Potassium [Moles/Vol] 3.6 mmol/L Normal 3.5 - 5.3 [facility] Comment on above: Performed By: #### B MP ####[address] [address] Sodium [Moles/Vol] 133 mmol/L Low 136 - 145 [facility] Comment on above: Performed By: #### B MP ####[address] [address] Urea nitrogen [Mass/Vol] 13 mg/dL Normal 6 - 23 [facility] Comment on above: Performed By: #### B MP ####[address] [address] CBCon 09-14-2022 Erythrocyte distribution width (RBC) [Ratio] 17.1 % High 11.5 - 14.5 [facility] Comment on above: Performed By: #### B MP #### [address] [address] Hematocrit (Bld) [Volume fraction] 28.4 % Low 36.0 - 46.0 [facility] Comment on above: Performed By: #### B MP #### [address] [address] Hemoglobin (Bld) [Mass/Vol] 8.1 g/dL Low 12.0 - 16.0 [facility] Comment on above: Performed By: #### B MP #### [address] [address] MCHC (RBC) [Mass/Vol] 28.5 g/dL Low 32.0 - 36.0 [facility] Comment on above: Performed By: #### B MP #### [address] [address] MCV (RBC) [Entitic vol] 71 fL Low 80 - 100 [facility] Comment on above: Performed By: #### B MP #### [address] [address] Platelets (Bld) [#/Vol] 310 10*3/uL Normal 150 - 450 [facility] Comment on above: Performed By: #### B MP #### [address] [address] RBC 4.01 x10E12/L Normal 4.00 - 5.20 [facility] Comment on above: Performed By: #### B MP #### [address] [address] WBC (Bld) [#/Vol] 11.6 10*3/uL High 4.4 - 11.3 [facility] Comment on above: Performed By: #### B MP #### [address] [address] Consult - Psychiatryon 09-14 Consult - Psychiatry Time In/Out: Time In: 14-Sep-2022 10:25 Time Out: 14-Sep-2022 10:50 Referral Information: Consult requested by (Attending Name): Franky Reason: Depression and Anxiety History of Present Illness: Admission Reason: Depression and anxiety HPI: 76 yo woman with HX of HTN, hyperlipidemia, Type II DM, a-fib, lymphedema, non-ambulatory status, who was admitted to medical unit 6.06.01 due to L thigh cellulitis, UTI and reported sepsis. Patient reports depression, chronic, x 40 years. Denies episodic exacerbations or major depressive episodes. Reports multiple stressors - raised 2 sons with cystic fibrosis; 19 years ago her then-23yo son Heriberto of CF, middle son Srinivas is now 40, has CF, and is ETOHic. Srinivas lives with patient and her . 3 years ago Srinivas's , Jojo, him and took pateint's granddaughter Tona with her - since then no visitation with Tona. Also, patient's Shad is now at [facility] for medical admission. Patient describes how she stopped walking 3 years ago when she shut down emotionally after Jojo and Tona left. States she can stand, but due to balance issues, is fearful of falling. Describes system wherein Srinivas and Shad assist her with wheelchair, bathing, toileting, etc. Goes to temple 1x/week, goes to lunch 1x/week with cousin, is happy with the situation. Patient denies past psych TX. No past psychotherapy, psych admissions or evals. Tx'd with Paxil in past x years, current regimen is Effexor 75 and Ativan 1 QHS via PCP. States has been on Ativan x 3 years with tolerance. Medical record indicates past DX of Major Depressive Disorder. Recent record indicates daily tearfulness. Past Psychiatric History: Chronic depression, low-level, occasional anxiety. Denies SX of MDD or Bipolar Lynsey, or psychosis Past Psychiatric Meds/Treatments/ECT: PCP - Paxil, Effexor and Ativan. Family History: Family History: Family History: unable to obtain Family History: Patient adopted as infant. 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 Social History: Lives in home with and adult son Srinivas. Allergies: No Known Allergies: Medications Prior to Admission: LISINOPRIL 5MG TAB: 1 tab(s) orally once a day LORazepam 1MG TAB: 1 tab(s) orally once a day (at bedtime) METFORMIN 500MG TAB: 1 tab(s) orally 2 times a day POT CHLORIDE 10MEQ ER CAP: 1 cap(s) orally once a day ROSUVASTATIN 10MG TAB: 1 tab(s) orally once a day TRIAMT/HCTZ 37.5-25 TAB: 1 tab(s) orally once a day VENLAFAXINE ER 75MG CAP: 1 cap(s) orally once a day XARELTO 20 MG TABLET: 1 tab(s) orally once a day ATENOLOL 100MG TAB: 0.5 tab(s) orally 2 times a day. OARRS Review: OARRS checked: no Psychiatric Review of Symptoms: Anxiety: anxiety specific to falling Depression: Depressed only when thinks about stressors. Delirium: negative Psychosis: negative Lynsey: negative Safety Issues: homicidal ideation Psychiatric Review of Symptoms: Occasional depression. No impact on sleep, eat, energy, pleasure. No SI, no prior suicide attempts. Review of Systems: Psychiatric: POSITIVE: Mood Changes; NEGATIVE: Anxiety, Hallucinations, Sleep Changes, Suicidal Ideas Objective: Objective Information: T PRBPMAPSpO2 [id number]/6596% Date/Time09/14 7: 7: 7: 7: 7:53 Range(36.3C - 36.8C ) (59 - 81 ) (16 - 20 ) (95 - 131 )/ (64 - 82 ) (96% - 98% ) Pain reported at 09/14 8:08: 3 = Mild; LEG PAIN AND MIDDLE BACK D/T GAIT BELT Mental Status Exam: General: Appropriately groomed and dressed. Appearance: Appears stated age. Attitude: Calm, cooperative. Behavior: Appropriate eye contact. Motor Activity: No agitation or retardation. No EPS/TD. Speech: Regular rate, rhythm, volume and tone, spontaneous, fluent. Mood: Euthymic Affect: Appropriate with full range. Thought Process: Organized, linear, goal directed. Associations are logical. Thought Content: Does not endorse suicidal or homicidal ideation, no delusions elicited. Thought Perception: Does not endorse auditory or visual hallucinations, does not appear to be responding to hallucinatory stimuli. Cognition: Grossly intact Insight: Partial Judgment: Intact Functional Estimates: Estimate of Intelligence: average Estimate of Capacity for Activities of Daily Living: independent Medications: Continuous Medications -------- No continuous medications are active Scheduled Medications -------- 1. Amoxicillin 875 mg - Clavulanate 125 m tablet(s) Oral Every 12 Hours 2. Atenolol: 50 mg Oral 2 Times a Day 3. Atorvastatin: 40 mg Oral Daily 4. Famotidine: 20 mg Oral 2 Times a Day 5. Ferrous Sulfate: 325 mg Oral 2 Times a Day 6. Insulin Lispro Moderate Corrective Scale: unit(s) SubCutaneous 3 Times a (more content not included)... Normal [facility] Discharge [id number] Discharge Profile2 Discharge Orders: Anticipated Discharge Date: Anticipated Discharge [id number] Anticipated Discharge Time14:48 Problem List: Additional Dx: Persistent depressive disorder with anxious distress, currently mild: Catalog Name: Dysthymic disorder Hyponatremia: Catalog Name: Hypo-osmolality and hyponatremia UTI (urinary tract infection): Catalog Name: Urinary tract infection, site not specified Atrial fibrillation: Onset Date: 14-Feb-2019, Catalog Name: Unspecified atrial fibrillation Prelim Disch Dx: Cellulitis of thigh: Catalog Name: Cellulitis of unspecified part of limb Significant Events: Atrial Fibrillation: Past Medical History Hypertension (HTN): Past Medical History Hospital Providers: Provider RoleProvider Name Angelique Lomax Code Status: Code Status at Discharge: Full Code DNR Order Additional Instructions (peds only): Activity: activity as tolerated. May shower. Diet: Dietlow cholesterol, low fat Fluid [id number] to 2000 ml Hospital Course (Home Care/Gold Form): Hospital Course: Hospital Course: include significant abnormal lab values DARYN SHAH is a 76 year old Female With past medical history of hypertension, hyperlipidemia, A-fib on anticoagulation, obesity, lymphedema, chronically bedbound presents with complaints of fever, chills and urinary tract infection. Patient says the whole family felt sick and she was unable to do anything further since yesterday. She had fever and chills. She did not complain of any urinary tract symptoms like burning with urination or difficulty urinating. She did have increased frequency and has been constantly urinating. She also has fecal incontinence problem. Today in the ER she was found incontinent with stools at the bedside. No abdominal pain, no headache, no nausea, no vomiting, no chest pain. She says she picks her leg frequently and has some raw areas in her legs bilaterally On arrival to the ER patient had a blood pressure of 115/55 mmHg, heart rate 106 beats a minute, respiratory 20/min saturating 92% room air. Initial investigation showed WBC 18.1, hemoglobin 8.6, MCV 70, platelet count 200, INR 5.4, glucose 170, sodium 129, potassium 3.1, chloride 93, bicarb 27, anion gap 30, BUN 20, creatinine 1, calcium 8.8, ALP 92, ALT 8, AST 16, urine was positive for infection. Chest x-ray showed no evidence of acute cardiopulmonary process. During the course in the hospital patient was admitted to telemetry unit. She was started on empiric antibiotic with ceftriaxone. Blood cultures and respiratory cultures were obtained. 48 hours of admission patient developed cellulitis of left thigh. She was started on Vanco and Zosyn. DVT scan was performed which was negative for blood clots. Echocardiogram was normal but showed ongoing A-fib. She had supratherapeutic INR so her anticoagulation was held, she also had anemia. FOBT was done was negative. Anticoagulation was resumed and iron was supplemented. 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 She was kept on fluid restriction. Her sodium numbers improved. Her UTI symptoms improved eventually. She had thrombocytopenia on admission that improved. Patient also had acute depression and was crying all the time. Psychiatry was consulted and Effexor was increased to 150 daily. She will need psychotherapy as outpatient. Patient this time is bedbound for 3 years. PT OT assessment recommends rehab. Patient at this time agreeable for rehab. She will be discharged to rehab today Gold Form Orders: Care Recommendation: I recommend that INPATIENT care is required at:Skilled Estimated StayConvalescent stay < 30 days PrognosisGood Rehab Potential/FunctionImprov e Provider CertificationATTENDING: I certify that inpatient care is required at the level recommended above. To the best of my knowledge, all information provided about the individual is a true and accurate reflection of the individual's condition. Attending ProviderAngelique Clarke Attending Provider [id number] Therapy Orders: Occupational Therapy OrdersEval and Treat ([facility]) Physical Therapy OrdersEval and Treat ([facility]) Speech Therapy OrdersEval and Treat ([facility]) Provider Follow Up: Physician To Follow at Skilled/RehabAttending Physician at Skilled/Rehab Provider FINAL REVIEW of Orders: Final Review: Final Review of Medication Reconciliation and Orders Completedby Physician Reviewing ProviderAngelique Clarke MD at 15-Sep-2022 12:31:20 Appointments: Follow-Up Appointment 01: [facility]/Facility Physician Reason for Referralpost hospital stay Call to Schedule in1 week Follow-Up Appointment 02: Physician/Dept/ServiceDr Rupal Pickard Reason for ReferralPsychotherapy/Ps ychiatry Call to Schedule inAs needed. O (more content not included)... Normal [facility] GLUCOSE-POCTon 09-14-2022 Glucose [Mass/Vol] 172 mg/dL High 74 - 99 [facility] Comment on above: Performed By: #### C OV19 #### [address] [address] Glucose [Mass/Vol] 204 mg/dL High 74 - 99 [facility] Comment on above: Performed By: #### C OV19 #### [address] [address] Glucose [Mass/Vol] 166 mg/dL High 74 - [address] [place] [address] Comment on above: Performed By: #### L ACT #### [address] [address] Glucose [Mass/Vol] 144 mg/dL High 74 - [address] [place] [address] Comment on above: Performed By: #### G ROLLY #### [address] [address] Nutrition Therapy-Assessment - Physician consult for assessmon 09-14-2022 Nutrition Therapy-Assessment - Physician consult for assessm Assessment Subjective/Objective: Note Type: Assessment Physician consult for assessment and recommendations Note Authored by: Registered Dietitian Seam Checker Pager Number: [place]chalo Nutrition Note: The patient is a 76 year old Female who presents with complaints of fever, chills and UTI. Per H&P patient has a past medical history significant for Hypertension, hyperlipidemia, A-fib on anticoagulation, obesity, lymphedema, type 2 diabetes mellitus, and obesity. Upon presentation patient was found to have leukocytosis, anemia, elevated INR, hyponatremia, and a UTI. She was put on a diabetic diet with a fluid restriction of 1,500 ml per day In progress note by physician patient had noted that she has left leg pain which is sometimes caused by cellulitis and she also has chronic lymphedema. Met with patient by bedside. She reports having a good appetite although for a week prior to admission she ate very little because she was feeling sick. She denied any nausea or vomiting but said she was week and had chills. Her appetite has improved since then and she reports eating well now. Patient is from home and lives with her . She said they receive a lunch from [employer] 5 days out of the week. They would typically have a TV style dinner or some sort of rice or noodle stir wu for dinner. She denies eating breakfast but will occasionally snack on granola bars. Patient reports typically drinking water and diet coke. Patient takes metformin at home to control her blood sugar. Objective Information: Pain reported at 09/14 9:00: 0 = None ---- Intake and Output ----- Mn/Dy/Year TimeIntakeOutCritical access hospital Sep 14, 2022 6:00 [id number] Sep 13, 2022 10:00 [id number] Sep 13, 2022 2:00 [id number] The Intake and Output Totals for the last 24 hours are: IntakeOutCritical access hospital [id number] Height/Weight: Height in cm: 167.5 centimeter(s) Weight (kg): 116.5 BMI (kg/m2): 41.523 square meter Weight history/ % weight change: No recent weights but patient weighed 307 in 2019. She denies recent weight loss. Recent Lab Results: Results: I have reviewed these laboratory results: Glucose_POCT 14-Sep-2022 11:21:00 ResultValue Glucose-POCT 166 H Complete Blood Count 14-Sep-2022 04:54:00 ResultValue White Blood Cell Count 11.6 H Red Blood Cell Count 4.01 HGB 8.1 L HCT 28.4 L MCV 71 L MCHC 28.5 L PLT 310 RDW-CV 17.1 H Basic Metabolic Panel 13-Sep-2022 05:54:00 ResultValue Glucose, Serum 146 H NA 134 L K 3.6 CL 96 L Bicarbonate, Serum 30 Anion Gap, Serum 12 BUN 13 CREAT 0.88 GFR Female 69 Calcium, Serum 8.5 L Nutrition Labs: Special Chemistry: 01-Jun-2022 11:38, Hemoglobin A1C Hemoglobin A1C, Level8.0 Diagnosis of Diabetes-Adults Non-Diabetic: < or = 5.6% Increased risk for developing diabetes: 5.7-6.4% Diagnostic of diabetes: > or = 6.5% . Monitoring of Diabetes Age (y) Therapeutic Goal (%) Adults: >18 <7.0 Pediatrics: 13-18 <7.5 7-12 <8.0 0- 6 7.5-8.5 [place] [employer]. Diabetes Care 33(S1), Apr 2009. 09-Sep-2022 04:54, Hemoglobin A1C, Level Hemoglobin A1C, Level7.6 Diagnosis of Diabetes-Adults Non-Diabetic: < or = 5.6% Increased risk for developing diabetes: 5.7-6.4% Diagnostic of diabetes: > or = 6.5% . Monitoring of Diabetes Age (y) Therapeutic Goal (%) Adults: >18 <7.0 Pediatrics: 13-18 <7.5 7-12 <8.0 0- 6 7.5-8.5 [place] [employer]. Diabetes Care 33(S1), Apr 2009. Current Active Medications/PN: Ondansetron Injectable, (ZOFRAN) DOSE = 4 mg IntraVenous Push Every 4 Hours, PRN Nausea and/or Vomiting, 08-Sep-2022 Insulin Lispro Moderate Corrective Scale, Give SubCutaneous 3 Times a Day Before Meals Hypoglycemia Protocol Call LIP unit(s) if Blood Glucose is between 0 - 70 0 unit(s) if Blood Glucose is between 71 - 150 4 unit(s) if Blood Glucose is between 151 - 200 6 unit(s) if Blood Glucose is between 201 - 250 8 unit(s) if Blood Glucose is between 251 - 300 10 unit(s) if Blood Glucose is between 301 - 350 12 unit(s) if Blood Glucose is between 351 - 400 Notify Provider unit(s) if Blood Glucose is greater than 400 Notes from Pharmacy: MALIK, 08-Sep-2022 Atorvastatin, Tablet (LIPITOR) DOSE = 40 mg Oral Daily Clinician Notes: Therapeutic interchange for rosuvastatin 10mg, 09-Sep-2022 Potassium Chloride Extended Release, Tablet, Extended Release DOSE = 10 mEq Oral Daily, 09-Sep-2022 Famotidine, Tablet (PEPCID) DOSE = 20 mg Oral 2 Times a Day, 09-Sep-2022 Polyethylene Glycol, Powder for Reconstitution (MIRALAX) DOSE = 17 gram(s) Oral Daily, PRN Constipation, 10-Sep-2022 Ferrous Sulfate, Tablet (FEOSOL) DOSE = 325 mg Oral 2 Times a Day, 12-Sep-2022 Nutrition Orders: Diet, Diabetic Adult Fluid Management: Restrict Fluids to 1500 ml/day 90gram Carb/meal, 60gram Carb evening snack (4224-5315 calories), 10-Sep-2022 (more content not included)... [facility] Order Reconciliationon 09-14 Order Reconciliation Page 1 Discharge Reconciliation Document Reconciliation Type: Discharge requested on behalf of Angelique Clarke (Physician) done by Angelique Clarke) Discharge - Reconciliation: 14-Sep-2022 14:47 by: Angelique Clarke) Home Medications EnteredHOME MEDICATIONS AT DISCHARGE DateReconciliation Comment/ Additional Information ATENOLOL 100MG TAB 0.5 tab(s) orally 2 times a day 08-Sep-2022 13:30 ATENOLOL 100MG TAB 0.5 tab(s) orally 2 times a day 08-Sep-2022 13:30 ATENOLOL 100MG TAB is continued as ATENOLOL 100MG TAB LISINOPRIL 5MG TAB 1 tab(s) orally once a day 08-Sep-2022 13:22 LISINOPRIL 5MG TAB 1 tab(s) orally once a day 08-Sep-2022 13:22 LISINOPRIL 5MG TAB is continued as LISINOPRIL 5MG TAB LORazepam 1MG TAB 1 tab(s) orally once a day (at bedtime) 08-Sep-2022 13:22 LORazepam 0.5 mg oral tablet 1 orally once a day (at bedtime) Discontinued; Copy/Discontinue LORazepam 1MG TAB is continued as LORazepam 1MG TAB METFORMIN 500MG TAB 1 tab(s) orally 2 times a day 08-Sep-2022 13:22 METFORMIN 500MG TAB 1 tab(s) orally 2 times a day 08-Sep-2022 13:22 METFORMIN 500MG TAB is continued as METFORMIN 500MG TAB POT CHLORIDE 10MEQ ER CAP 1 cap(s) orally once a day 08-Sep-2022 13:22 POT CHLORIDE 10MEQ ER CAP 1 cap(s) orally once a day 08-Sep-2022 13:22 POT CHLORIDE 10MEQ ER CAP is continued as POT CHLORIDE 10MEQ ER CAP ROSUVASTATIN 10MG TAB 1 tab(s) orally once a day 08-Sep-2022 13:22 ROSUVASTATIN 10MG TAB 1 tab(s) orally once a day 08-Sep-2022 13:22 ROSUVASTATIN 10MG TAB is continued as ROSUVASTATIN 10MG TAB TRIAMT/HCTZ 37.5-25 TAB 1 tab(s) orally once a day 08-Sep-2022 13:22 TRIAMT/HCTZ 37.5-25 TAB 1 tab(s) orally once a day 08-Sep-2022 13:22 TRIAMT/HCTZ 37.5-25 TAB is continued as TRIAMT/HCTZ 37.5-25 TAB VENLAFAXINE ER 75MG CAP 1 cap(s) orally once a day 08-Sep-2022 13:23 venlafaxine 150 mg oral capsule, extended release 1 cap(s) orally once a day Discontinued; Copy/Discontinue VENLAFAXINE ER 75MG CAP is continued as VENLAFAXINE ER 75MG CAP XARELTO 20 MG TABLET 1 tab(s) orally once a day 08-Sep-2022 13:23 XARELTO 20 MG TABLET 1 tab(s) orally once a day 08-Sep-2022 13:23 XARELTO 20 MG TABLET is continued as XARELTO 20 MG TABLET Current OrdersDateHOME MEDICATIONS AT DISCHARGE DateReconciliation Comment/ Additional Information Acetaminophen Tablet (TYLENOL)DOSE = 650 mg Oral Every 4 Hours, PRN Pain - Mild (1-3) 08-Sep-2022 17:06 Acetaminophen is not required Amoxicillin 875 mg - Clavulanate 125 mg Tablet (AUGMENTIN)DOSE = 1 tablet(s) Oral Every 12 Hours 14-Sep-2022 09:31 amoxicillin-clavulanate 875 mg-125 mg oral tablet 1 tab(s) orally every 12 hours 14-Sep-2022 14:46 Prescription is created for amoxicillin-clavulanate 875 mg-125 mg oral tablet Atenolol Tablet (TENORMIN)DOSE = 50 mg Oral 2 Times a Day 08-Sep-2022 17:31 Atenolol is not required Atorvastatin Tablet (LIPITOR)DOSE = 40 mg Oral DailyClinician Notes: Therapeutic interchange for rosuvastatin 10mg 08-Sep-2022 19:42 Atorvastatin is not required Dextrose 50% in Water Injectable DOSE = 25 gram(s) IntraVenous Push Every 15 Minutes, PRN Blood Glucose 70 mg/dL or LESS & HAS IV access;Clinician Notes: IF patient HAS a secure IV access & is Unconscious, Conscious, NPO or Unable to Eat or Drink. R 08-Sep-2022 17:58 Dextrose 50% in Water Injectable is not required Famotidine Tablet (PEPCID)DOSE = 20 mg Oral 2 Times a Day 09-Sep-2022 13:37 Famotidine is not required Ferrous Sulfate Tablet (FEOSOL)DOSE = 325 mg Oral 2 Times a Day 12-Sep-2022 07:41 ferrous sulfate 325 mg (65 mg elemental iron) oral tablet 1 tab(s) orally 2 times a day 14-Sep-2022 14:44 Prescription is created for ferrous sulfate 325 mg (65 mg elemental iron) oral tablet Glucagon Injectable DOSE = 1 mg IntraMuscular Every 15 Minutes, PRN Blood Glucose 70 mg/dL or LESS & NO IV accessClinician Notes: IF patient DOES NOT have secure IV access & is Unconscious, Conscious, NPO or Unable to Eat or Drink. Repeat until BG r 08-Sep-2022 17:58 Glucagon Injectable is not required guaiFENesin Oral Liquid (ROBITUSSIN)DOSE = 400 mg Oral Every 4 Hours, PRN Cough 12-Sep-2022 22:57 guaiFENesin Oral Liquid is not required Insulin Lispro Moderate Corrective Scale Give SubCutaneous 3 Times a Day Before Meals Hypoglycemia Protocol Call LIP unit(s) if Blood Glucose is between 0 - 70 0 unit(s) if Blood Glucose is between 71 - 150 4 unit(s) if Blood Glucose is betw 08-Sep-2022 18:19 Insulin Lispro Moderate Corrective Scale is not required Lisinopril Tablet (PRINIVIL, ZESTRIL)DOSE = 5 mg Oral Daily 08-Sep-2022 17:31 Lisinopril is not required LORazepam Tablet (ATIVAN)DOSE = 1 mg Oral At Bedtime 08-Sep-2022 17:31 LORazepam is not required Ondansetron Injectable (ZOFRAN)DOSE = 4 mg IntraVenous Push Every 4 Hours, PRN Nausea and/or Vomiting 08-Sep-2022 17:06 Ondansetron Injectable is not required Piperacillin - Tazobactam 3.375 gram/Iso-osmoti (more content not included)... Normal [facility] Re[facility] [id number] Rehab Iffm-bt-beaxdeghf Rehab: Info: Disciplinephysical physical therapy professor Mode of Treatmentco-treatment; physical therapy; occupational therapy Time IN12:56 Time OUT13:30 Total Treatment [id number] Patient in ... at end of sessionbed, 3 railings up; alarm off; not on at start of visit Patient Effortfair Line and TubesIV; pure wick catheter Pre Treatment Patient Positionsupine Pre Treatment SpO2 (%)97 % Pre Treatment Oxygen Deliveryroom air During Treatment Patient Positionstanding During Treatment SpO2 (%)98 % During Treatment Oxygen Deliveryroom air Post Treatment Patient Positionsupine Post Treatment SpO2 (%)97 % Post Treatment Oxygen Deliveryroom air Vision/Cognition: Affect/Mental Status (Cognitive)WFL; sad/depressed affect Mobility/Tone: Bed Mobility Assessment/Interventions supine to sit to supine Supine to Sit to Supine [place] (Bed Mobility)moderate assist (50% patient effort); 2 person assist Assistive Device (Bed Mobility)bed rails; draw sheet Transfer Assessment/Interventions sit to stand transfer Comment, TransfersSTS x3 times Motor: Lower Extremity (Therapeutic Exercise)B/L: HR/TR's/seated marches, alt/LAQ's/hip abduction, resisted x10-12 reps each Sensory: Pre-Treatment Pain Rating0/10 - no pain Post-Treatment Pain Rating0/10 - no pain Outcomes Tools: Turning from your back to your side while in a flat bed without using bedrails a lot Moving from lying on your back to sitting on the side of a flat bed without using bedrailsa lot Moving to and from bed to chair (including a wheelchair)a lot Standing up from a chair using your arms (e.g. wheelchair or bedside chair)a lot To walk in hospital roomtotal Climbing 3-5 steps with railingtotal AM-PAC (PT) Total Score10 Outcome Summary: Progress: Physical Therapyprogress towards functional goals is fair Outcome Summary: Physical TherapyPt. laying in bed upon arrival, agreeable to therapy. Co-treated with FOUNDRY WORKER APPRENTICE this date. Mod assist x1-2 with supine <>sit. Pt. performed seated LE exercises in sitting while maintaining upright trunk posture. Pt. does lean back sometimes but did not require much help with correcting herself. Pt. completed STS three times with mod assist x2. Pt. was fearful and needed a lot of encouragement to stand. Pt. stood initially for 10 seconds with cues to stand upright. Pt. stood 15 seconds, then 20 seconds with c/o her knees bending. Pt. is very emotional and tended to cry each time she stood. Pt. returned to bed with call light within reach. Continue with plan of care and progress per tolerance to improve functional bed mobility and transfers with greater ease/safety. MB Electronic Signatures: Eboni Mckeon (ARABIC LINGUIST) (Signed 14-Sep-2022 13:50) Authored: Info, Vision/Cognition, Mobility/Tone, Motor, Sensory, Outcomes Tools, Short Term Goals, Outcome Summary James Mendez (PT) (Signed 19-Sep-2022 08:46) Co-Signer: Info, Vision/Cognition, Mobility/Tone, Motor, Sensory, Outcomes Tools, Short Term Goals, Outcome Summary Last Updated: 19-Sep-2022 08:46 by James Mendez (PT) [facility] [id number] Rehab: Info: Disciplineoccupational physical therapy professor Mode of Treatmentco-treatment; occupational therapy; physical therapy Time IN12:54 Time OUT13:32 Total Treatment [id number] Total Minutes CommentFull 38 min co-tx with Eboni MANDUJANO to maximize performance levels to reach therapy goals. Patient sitting up in bed upon arrival agreeable to therapy. Patient sitting EOB for exercises. No pain reported at beginning of session Patient in ... at end of sessionbed, 3 railings up; alarm off; not on at start of visit Patient Effortgood Symptoms Noted During/After Treatmentfatigue Patient Response to TreatmentPatient emotional intermittently throughout session, following all directions given and eager to get better. Line and TubesIV; Pure wick Pre Treatment Patient Positionsitting Pre Treatment Heart Rate (beats/min)75 Pre Treatment SpO2 (%)94 % Pre Treatment Oxygen Deliveryroom air Post Treatment Patient Positionsitting Post Treatment Heart Rate (beats/min)66 Post Treatment SpO2 (%)97 % Post Treatment Oxygen Deliveryroom air Vision/Cognition: Affect/Mental Status (Cognitive)WFL Orientation Status (Cognition)oriented x 4 Mobility/Tone: Bed Mobility Assessment/Interventions rolling left; supine to sit; sit to supine Roll Left [place] (Bed Mobility)independent Rquqhc-uw-Ene [place] (Bed Mobility)independent Ksa-gs-Bthuzx [place] (Bed Mobility)minimum assist (75% patient effort); Min A to lift leg onto bed Assistive Device (Bed Mobility)bed rails Transfer Assessment/Interventions sit to stand transfer; stand to sit transfer Sit-Stand [place] (Transfers)Sit to stand x 3 trials standing 10, 15 then 20 seconds. Mod>max A x 2 with/ verbal cues to stand tall. Each sit to stand improving; maximum assist (25% patient effort); 2 person assist Sit-Stand Assistive Device (Transfers)gait belt; walker, front-wheeled Stand-Sit [place] (Transfers)moderate assist (50% patient effort) Stand-Sit Assistive Device (Transfers)gait belt; walker, front-wheeled Impairments Impacting Function (Mobility)balance; strength; range of motion ADL: BADL Assessment/Interventionl ower body dressing [place] Level (Lower Body Dressing)don; socks; modified independence Assistive Devices (Lower Body Dressing)sock-aid Position (Lower Body Dressing)unsupported sitting TherEx: Therapeutic ExerciseOrange T band IR/ER BUE x 10 each Blue T foam B hand squeezes x 10 each Shoulder shrugs x 10 each BUE arm push outs x 10 each BUE arm raises x 10 each Outcomes Tools: Putting on and taking off regular lower body clothinga lot Bathing (including washing, rinsing, drying)a lot Toileting, which includes using toilet, bedpan or urinala lot Putting on and taking off regular upper body clothinga little Taking care of personal grooming such as brushing teethnone Eating Mealsnone AM-PAC (OT) Total Score17 Call Center Team Leader Goals: Transfer: Established Transfer: Transfer Type Goaltoilet Transfer: [place] Level Goalminimum assist (75% patients effort) Transfer: Assistive Device Goalbedside commode Transfer: Time Frame for Goal2 wks Transfer: Goal Outcomegoal ongoing Strength: Established [id number] Strength: GoalWFL Strength: Upper Extremities Goalupper extremity(s) Bilateral: Strength: Time Frame for Goal2 wks Strength: Goal Outcomegoal ongoing Energy Conservation: Goal DetailsPt will demonstrate I with energy conservation techniques to increase functional activity tolerance to x15+ min without rest breaks/while maintaining O2 sats Energy Conservation: Time Frame for Goal2 wks Energy Conservation: Goal Outcomegoal partially met; No SOB or drop in O2 throughout 38 minute session. Patient maintaining in mid-High 90's Lower Body Dressing: Established Lower Body Dressing: [place] Level Goalindependent Lower Body Dressing: Time Frame for Goal2 wks Lower Body Dressing: Goal Outcomegoal ongoing; Patient educated with sock aide this date, able to complete with 1x demo Toileting: Established Toileting: [place] Level Goalminimum assist (75% patients effort) Toileting: Time Frame for Goal2 wks Toileting: Goal Outcomegoal ongoing Miscellaneous: Established Miscellaneous: Goal DetailsPt will demonstrate dynamic reaching in all planes to increase core strength requiring no assistance with unsupported sitting x10 min Miscellaneous: Time Frame for Goal2 wks Miscellaneous: Goal Outcomegoal ongoing Outcome Summary: Progress: Occupational Therapyprogress toward functional goals is gradual Outcome Summary: Occupational TherapyPatient demos eagerness to get better and be able to stand on own, Patient excited to work with therapists to increase strength and ROM to reach goals. Electronic Signatures: Rhiannon Marlow (HARVEY) (Signed 14-Sep-2022 13:52) Authored: Info, Vision/Cogni (more content not included)... Normal [facility] BASIC METABOLIC PANELon 06-0 Anion gap [Moles/Vol] 12 mmol/L Normal 10 - 20 [facility] Comment on above: Performed By: #### G ROLLY #### [facility] [address] [place] [address] Calcium [Mass/Vol] 8.5 mg/dL Low 8.6 - 10.3 [facility] Comment on above: Performed By: #### G ROLLY #### [address] [address] Chloride [Moles/Vol] 96 mmol/L Low 98 - 107 [facility] Comment on above: Performed By: #### G ROLLY #### [address] [address] Creatinine [Mass/Vol] 0.88 mg/dL Normal 0.50 - 1.05 [facility] Comment on above: Performed By: #### G ROLLY #### [address] [address] GFR/1.73 sq M.predicted among non-blacks MDRD (S/P/Bld) [Vol rate/Area] 69 mL/min/{1.73_m2} Normal >90 [facility] Comment on above: Result Comment: CALC ULATIONS OF ESTIMATED GFR ARE PERFORMED USING THE 2020 CKD-EPI STUDY REFIT EQUATION WITHOUT THE RACE VARIABLE FOR THE IDMS-TRACEABLE CREATININE METHODS. https://jasn.asnjournals.org/content//ASN.85633 34478 Performed By: #### G ROLLY #### [address] [address] Glucose [Mass/Vol] 146 mg/dL High 74 - 99 [facility] Comment on above: Performed By: #### G ROLLY #### [address] [address] HCO3 (Bld) [Moles/Vol] 30 mmol/L Normal 21 - 32 [facility] Comment on above: Performed By: #### G ROLLY #### [address] [address] Potassium [Moles/Vol] 3.6 mmol/L Normal 3.5 - 5.3 [facility] Comment on above: Performed By: #### G ROLLY #### [address] [address] Sodium [Moles/Vol] 134 mmol/L Low 136 - 145 [facility] Comment on above: Performed By: #### G ROLLY #### [address] [address] Urea nitrogen [Mass/Vol] 13 mg/dL Normal 6 - 23 [facility] Comment on above: Performed By: #### G ROLLY #### [address] [address] CBC AND DIFFERENTIALon 09-13 % AUTOMATED IMMATURE GRAN 1.0 % High 0.0 - 0.9 [facility] Comment on above: Result Comment: Martina ture Granulocyte Count (IG) includes promyelocytes, myelocytes and metamyelocytes but does not include bands. Percent differential counts (%) should be interpreted in the context of the absolute cell counts (cells/L). Performed By: #### C BCDF #### [address] [address] Basophils (Bld) [#/Vol] 0.06 10*3/uL Normal 0.00 - 0.10 [facility] Comment on above: Performed By: #### C BCDF #### [address] [address] Basophils/100 WBC (Bld) 0.5 % Normal 0.0 - 2.0 [facility] Comment on above: Performed By: #### C BCDF #### [address] [address] Eosinophils (Bld) [#/Vol] 0.50 10*3/uL High 0.00 - 0.40 [facility] Comment on above: Performed By: #### C BCDF #### [address] [address] Eosinophils/100 WBC (Bld) 4.3 % Normal 0.0 - 6.0 [facility] Comment on above: Performed By: #### C BCDF #### [address] [address] Erythrocyte distribution width (RBC) [Ratio] 17.2 % High 11.5 - 14.5 [facility] Comment on above: Performed By: #### C BCDF #### [address] [address] Hematocrit (Bld) [Volume fraction] 28.3 % Low 36.0 - 46.0 [facility] Comment on above: Performed By: #### C BCDF #### [address] [address] Hemoglobin (Bld) [Mass/Vol] 8.1 g/dL Low 12.0 - 16.0 [facility] Comment on above: Performed By: #### C BCDF #### [address] [address] Lymphocytes (Bld) [#/Vol] 2.73 10*3/uL Normal 0.80 - 3.00 [facility] Comment on above: Performed By: #### C BCDF #### [address] [address] Lymphocytes/100 WBC (Bld) 23.3 % Normal 13.0 - 44.0 [facility] Comment on above: Performed By: #### C BCDF #### [address] [address] MCHC (RBC) [Mass/Vol] 28.6 g/dL Low 32.0 - 36.0 [facility] Comment on above: Performed By: #### C BCDF #### [address] [address] MCV (RBC) [Entitic vol] 70 fL Low 80 - 100 [facility] Comment on above: Performed By: #### C BCDF #### [address] [address] Monocytes (Bld) [#/Vol] 0.91 10*3/uL High 0.05 - 0.80 [facility] Comment on above: Performed By: #### C BCDF #### [address] [address] Monocytes/100 WBC (Bld) 7.8 % Normal 2.0 - 10.0 [facility] Comment on above: Performed By: #### C BCDF #### [address] [address] Neutrophils (Bld) [#/Vol] 7.41 10*3/uL High 1.60 - 5.50 [facility] Comment on above: Result Comment: Perc ent differential counts (%) should be interpreted in the context of the absolute cell counts (cells/L). Performed By: #### C BCDF #### [address] [address] Neutrophils/100 WBC (Bld) 63.1 % Normal 40.0 - 80.0 [facility] Comment on above: Performed By: #### C BCDF #### [address] [address] Platelets (Bld) [#/Vol] 290 10*3/uL Normal 150 - 450 [facility] Comment on above: Performed By: #### C BCDF #### [address] [address] RBC 4.02 x10E12/L Normal 4.00 - 5.20 [facility] Comment on above: Performed By: #### C BCDF #### [address] [address] WBC (Bld) [#/Vol] 11.7 10*3/uL High 4.4 - 11.3 [facility] Comment on above: Performed By: #### C BCDF #### [address] [address] Daily Progress Note-General Internal Medicineon 09-13-2022 Daily Progress Note-General Internal Medicine Service: General Internal Medicine Subjective Data: DARYN SHAH is a 76 year old Female who is Hospital Day # 6. Additional Information: Patient seen and examined at bedside. She is doing better. No complaints today. Her cellulitis has improved. Patient cried constantly yesterday. Per PT OT assessment patient is extremely depressed to move around and make progress. Objective Data: Objective Information: T PRBPMAPSpO2 [id number]/6698% Date/Time09/13 10: 10: 10: 10: 10:00 Range(35.9C - 36.6C ) (59 - 74 ) (18 - 20 ) (95 - 113 )/ (59 - 74 ) (95% - 98% ) Pain reported at 09/13 9:50: 0 = None ---- Intake and Output ----- [facility] Sep 13, 2022 2:00 [id number] Sep 13, 2022 6:00 [id number] Sep 12, 2022 10:00 [id number] The Intake and Output Totals for the last 24 hours are: IntakeOutCritical access [facility] [id number] Physical Exam by System: Constitutional: Well developed, obese , awake/alert/oriented x3, no distress, alert and cooperative Eyes: PERRL, EOMI, clear sclera Head/Neck: Neck supple, no apparent injury, thyroid without mass or tenderness, No JVD, trachea midline, no bruits Respiratory/Thorax: Patent airways, CTAB, normal breath sounds with good chest expansion, thorax symmetric Cardiovascular: Regular, rate and rhythm, no murmurs, 2+ equal pulses of the extremities, normal S 1and S 2 Gastrointestinal: Nondistended, soft, non-tender, no rebound tenderness or guarding, no masses palpable, no organomegaly, +BS, no bruits Musculoskeletal: Left thigh cellulitis improved, redness decreased, tenderness decreased Neurological: alert and oriented x3, intact senses, motor, response and reflexes, normal strength Psychological: Appropriate mood and behavior Skin: Warm and dry, no lesions, no rashes Medication: Medications: Continuous Medications -------- No continuous medications are active Scheduled Medications -------- 1. Atenolol: 50 mg Oral 2 Times a Day 2. Atorvastatin: 40 mg Oral Daily 3. Famotidine: 20 mg Oral 2 Times a Day 4. Ferrous Sulfate: 325 mg Oral 2 Times a Day 5. Insulin Lispro Moderate Corrective Scale: unit(s) SubCutaneous 3 Times a Day Before Meals 6. Lisinopril: 5 mg Oral Daily 7. LORazepam: 1 mg Oral At Bedtime 8. Piperacillin - Tazobactam 3.375 gram/Iso-osmotic 50 mL Premix IVPB: 50 mL IntraVenous Piggyback Every 6 Hours 9. Potassium Chloride Extended Release: 10 mEq Oral Daily 10. Rivaroxaban: 20 mg Oral Daily 1800 11. Triamterene 37.5 mg- hydroCHLOROthiazide 25 mg - PEDS: 1 tablet(s) Oral Daily 12. Vancomycin - RPh to Dose - IV Piggy Back: 1 each As Specified Variable 13. Vancomycin IV Piggy Back: 1500 mg IntraVenous Piggyback Every 24 Hours 14. Venlafaxine Extended Release: 75 mg Oral Daily PRN Medications -------- 1. Acetaminophen: 650 mg Oral Every 4 Hours 2. Dextrose 50% in Water Injectable: 25 gram(s) IntraVenous Push Every 15 Minutes 3. Glucagon Injectable: 1 mg IntraMuscular Every 15 Minutes 4. guaiFENesin Oral Liquid: 400 mg Oral Every 4 Hours 5. Ondansetron Injectable: 4 mg IntraVenous Push Every 4 Hours 6. Polyethylene Glycol: 17 gram(s) Oral Daily 7. Sodium Chloride 0.9% Injectable Flush: 10 mL IntraVenous Flush Every 8 Hours and as Needed Recent Lab Results: Results: CBC: 09/13/2022 05:54 \ Hgb / \ 8.1 L / WBC Plt 11.7 H 290 / Hct \ / 28.3 L \ RBC: 4.02 MCV: 70 L Neutrophil %: 63.1 BMP: 09/13/2022 05:54 NA+ Cl- BUN / 134 L 96 L 13 / -------- Glucose --- 146 H K+ HCO3- Creat \ 3.6 30 0.88 \ Calcium : 8.5 L Anion Gap : 12 Radiology Results: Results: Conclusion: CONCLUSIONS: Right Lower Venous: No evidence of acute deep vein thrombus visualized in the right lower extremity. Left Lower Venous: No evidence of acute deep vein thrombus visualizedin the left lower extremity. Imaging & Doppler Findings: Right Compress Thrombus SFJ Yes None Left Compress Thrombus SFJ Yes None Right Compressible Thrombus Flow Distal External Iliac Yes None CFV Yes None Spontaneous/Phasic PFV Yes None FV Proximal Yes None Spontaneous/Phasic FV Mid Yes None FV Distal Yes None Popliteal Yes None Spontaneous/Phasic Peroneal Yes None PTV Yes None Left Compress Thrombus Flow Distal External IliacYes None CFV Yes None Spontaneous/Phasic PFV Yes None FV Proximal Yes None Spontaneous/Phasic FV Mid Yes None FV Distal Yes None Popliteal Yes None Spontaneous/Phasic Peroneal Yes None PTV Yes None [id number] Don Rico MD Final [facility] Venous Duplex Ultrasound for DVT [Sep 11 2022 7:14PM] (more content not included)... Normal [facility] GLUCOSE-POCTon 09-13-2022 Glucose [Mass/Vol] 222 mg/dL High 74 - 99 [facility] Comment on above: Performed By: #### U ARFX #### [address] [address] Glucose [Mass/Vol] 160 mg/dL High 74 - 99 [facility] Comment on above: Performed By: #### L ACT #### [address] [address] Glucose [Mass/Vol] 220 mg/dL High 74 - 99 [facility] Comment on above: Performed By: #### B MP #### [address] [address] Glucose [Mass/Vol] 142 mg/dL High 74 - 99 [facility] Comment on above: Performed By: #### L ACT #### [address] [address] OT Evaluation v2-occupationa l therapyon 09-13-2022 OT Evaluation v2-occupational therapy Rehab: Info: Mode of Treatmentoccupational therapy Time IN13:29 Time OUT13:54 Total Treatment [id number] Total Minutes Commentplus 1415 to 1437 with PT james Patient in ... at end of sessionchair Communicated with ... at end of sessionbedside nurse; adult caregiver; physician; Discussion with Dr. Clarke, care transitions Vera and Princess about pt potential and mental health being pt largest limitation Patient Effortgood Symptoms Noted During/After Treatmentfatigue Patient Profile Reviewedyes Onset of Illness/Injury or Date of [id number] Reason for ReferralADL safety Referring PhysicianAngelique Clarke MD Patient/Family/Caregiver Comments/ObservationsPt sitting up in recliner upon entry to room. Pt willing to attempt standing with OT for evaluation. pt very depressed and limited by anxiety pt sitting on bed cain on entry to room. Pertinent History of Current Functional ProblemPatient presents with sepsis and history of HTN, A-fib, hyponatemia, hyperlipidemia, and chronic B LE weakness Hearing Precautions/LimitationsW FL Precautions/Limitationsn o known precautions/limitations Limitations/Impairmentse ndurance Developmental Statusindependent, age appropriate Ambulation Skills - Previous Level of Functionunable to perform pt reports she is I with ADLs, uses wheelchair or power chair. Pt reports she cannot get her wheelchair into the bathroom and therefore uses a bedpan or a brief. Pt reporting she hasn't stood in years d/t her family situation she gave up and didn't care if she lived or . Transfer Skills - Previous Level of Functionneeds device ADL Skills - Previous Level of Functionneeds assist; needs device Living Arrangementshouse Lives Withadult child(bijan); spouse Home Accessibilityunable to enter bathroom with chair, uses bedpan/briefs Type of Equipment Currently In the Homewheelchair; manual and power wheelchair Post Treatment Patient Positionsitting Post Treatment Heart Rate (beats/min)98 Post Treatment SpO2 (%)98 % Post Treatment Oxygen Deliveryroom air Vision/Cognition: Affect/Mental Status (Cognitive)WFL; sad/depressed affect Orientation Status (Cognition)oriented x 4 ROM: Upper Extremity: Range of Motionleft upper extremity ROM WFL; right upper extremity ROM WFL; Pt reports some pain with RUE ROM MMT: Upper Extremity: Manual Muscle Testing (MMT)RUE 3+/5 d/t pain LUE 4+/5 Mobility/Tone: Transfer Assessment/Interventions sit to stand transfer; stand to sit transfer Comment, Transferspt standing with this OT x2 trials 35 seconds first trial and 1 minute second Pt demos much anxiety and tears with first attempt but appears much more comfortable on second attempt. First attempt Min Ax2 with cues, second CGA/MIN Ax2 with gait belt and FWW Sit-Stand [place] (Transfers)minimum assist (75% patient effort); 2 person assist Sit-Stand Assistive Device (Transfers)gait belt; walker, front-wheeled Stand-Sit [place] (Transfers)minimum assist (75% patient effort); 2 person assist Stand-Sit Assistive Device (Transfers)gait belt; walker, front-wheeled Safety Issues Impacting Function (Mobility)anixety; insight into deficits/self awareness Impairments Impacting Function (Mobility)strength; endurance/activity tolerance; postural/trunk control ADL: BADL Assessment/Interventionl ower body dressing; toileting Position (Lower Body Dressing)unsupported sitting Comment (Lower Body Dressing)sitting in chair [place] Level (Toileting)maximum assist (25% patient effort) Assistive Devices (Toileting)bedpan Comment (Toileting)pt sitting on bed cain on entry to room in chair, pt stating she normally can wipe self but cannot d/t arms on chair Sensory: Pre-Treatment Pain Rating0/10 - no pain Post-Treatment Pain Rating0/10 - no pain Sensory General Assessmentno sensation deficits identified Health: Observed Emotional Statetearful/crying; pleasant; cooperative; anxious Verbalized Emotional Statedepression; anxiety Plan of Care Reviewed Withpatient Impression: Criteria for Skilled Therapeutic Interventions Met (OT Eval)yes OT DiagnosisDecreased functional activity Assessment (OT Eval)Daryn demonstrates with needs for skilled OT intervention. She demonstrates much more functional potential than indicated by most recent baseline. Pt has been very depressed d/t family dynamics and has become demotivated in functional transfers. pt still cares for self independently at baseline and has potential to improve even more to decrease caregiver burden and increase functional performance in BUE strength, transfers, ADLs, IADls and functional actibity tolerance to reach highest potential Rehab Potential (OT Eval)good, to achieve stated therapy goals Therapy Frequency (OT Eval)5 times/wk Predicted Duration of Therapy [id number] days Functional Limitations in Following Categoriesself-care; mobility/gait Outc (more content not included)... Normal [facility] Rehab Noteon 09-13-2022 Rehab Note Rehab: Info: Time IN11:31 Time OUT11:46 Total Treatment [id number] Total Minutes Commentadditional time [id number] by PT James Mendez for transfers and update to POC Patient in ... at end of sessionchair; alarm on Patient Effortgood Symptoms Noted During/After Treatmentnone Line and TubesIV; purwick Pre Treatment Patient Positionsitting Pre Treatment Heart Rate (beats/min)73 Pre Treatment SpO2 (%)97 % Pre Treatment Oxygen Deliveryroom air Post Treatment Patient Positionsitting Post Treatment Heart Rate (beats/min)73 Post Treatment SpO2 (%)98 % Vision/Cognition: Affect/Mental Status (Cognitive)WNL; sad/depressed affect Orientation Status (Cognition)oriented x 4 Mobility/Tone: Transfer Assessment/Interventions sit to stand transfer; stand to sit transfer Comment, TransfersInstruction and cues needed for hand placement with use of AD and for safety with transfers. Patient stood with AD for 1 min (with PT and OT present) with CGA holding onto FWW. patient able to support herself and lift her left foot to just clear floor. Unable to lift/clear right leg. Sit-Stand [place] (Transfers)minimum assist (75% patient effort); 1 person assist Sit-Stand Assistive Device (Transfers)gait belt; walker, front-wheeled Stand-Sit [place] (Transfers)contact guard; 1 person assist; verbal cues Stand-Sit Assistive Device (Transfers)gait belt; walker, front-wheeled Comment, Gait/Stairs Trainingable to lift and clear left foot. Unable to lift/clear right foot Motor: Lower Extremity (Therapeutic Exercise)ankle pumps, 4 way ankle resisted, hip ADD/ABD, SAQ, Q sets LAQ, hamstring curls Clamshells/ Hip Add ISO 10-12 reps each Sensory: Comment, Pre/Post Treatment Painpatient reports no pain. States up to chair for first time. She mentioned that she is sad she can not walk, saying she thinks she has the strength but is afraid of falling. She says she thinks it is a mind over matter problem. Outcomes Tools: Turning from your back to your side while in a flat bed without using bedrails a little Moving from lying on your back to sitting on the side of a flat bed without using bedrailsa lot Moving to and from bed to chair (including a wheelchair)a lot Standing up from a chair using your arms (e.g. wheelchair or bedside chair)a little To walk in hospital roomtotal Climbing 3-5 steps with railingtotal AM-PAC (PT) Total Score12 Halfway Goals: Bed Mobility: Established Bed Mobility: [place] Level Goalmodified independent; With bed flat and HOB not elevated; can use trapeze bar Bed Mobility: Time Frame for Goal1 wk Transfer: Established Transfer: Transfer Type Vrsbkbm-jt-msagf/chair-t o-bed; ntm-ra-ywwrk/stand-to-si t Transfer: [place] Level Goalmoderate assist (50% patients effort) Transfer: Physical Assist Level Goal1-person assist Transfer: Assistive Device Goalrolling walker Transfer: Time Frame for Goal1 wk Balance: Date Balance: Goal DetailsPatient able to sit edge of bed unsupported with min trunk sway reaching outside base of support Balance: Time Frame for Goal1 wk Strength: Established Strength: GoalPatient able to complete x10 bridges and x10 SLR each LE without fatigue for ease with eventual ability to transfer to power chair Strength: Time Frame for Goal1 wk Miscellaneous: Established Miscellaneous: Goal DetailsPatient will demonstrate good understanding of use of AD during transfers and mobility Patient will be able to stand and lift feet to clear floor alternating steps in place while supporting herself with AD with CGA x10 steps. Miscellaneous: Time Frame for Goal1 wk Education: Learnerpatient Barriers to Learningno barrier Methodverbal Outcome Evaluation1=partially meets; needs review Topicrehab plan of care; discharge recommendations including destination and/or equipment; fall prevention; proper use of adaptive equipment to increase safety and decrease fall risk Education - Topicdiscussed transfers, use of equipment to increase patient's independence with mobility and self care and discussed rehab to try and improve strength, balance, moblity in order to increase patient's independence for when she returns home Outcome Summary: Progress: Physical Therapyprogress toward functional goals as expected Outcome Summary: Physical TherapyPatient completed LE pres with improved ROM and good speed. She did not required rest breaks between sets of exercises. Patient had just gotten up to chair with nursing . Cont with strengthening to improve her I and ease with functional transfers. NANCY oTbias All clinical decision making and treatment directly supervised by Constance Draper ARABIC LINGUIST 5126 patient's plan of care updated with updated goals to include transfers and stepping. Patient agreeable to trying to get be (more content not included)... Normal [facility] BASIC METABOLIC PANELon 06-0 Anion gap [Moles/Vol] 12 mmol/L Normal 10 - 20 [facility] Comment on above: Performed By: #### B MP #### [address] [address] Calcium [Mass/Vol] 8.4 mg/dL Low 8.6 - 10.3 [facility] Comment on above: Performed By: #### B MP #### [address] [address] Chloride [Moles/Vol] 97 mmol/L Low 98 - 107 [facility] Comment on above: Performed By: #### B MP #### [address] [address] Creatinine [Mass/Vol] 0.88 mg/dL Normal 0.50 - 1.05 [facility] Comment on above: Performed By: #### B MP #### [address] [address] GFR/1.73 sq M.predicted among non-blacks MDRD (S/P/Bld) [Vol rate/Area] 69 mL/min/{1.73_m2} Normal >90 [facility] Comment on above: Result Comment: CALC ULATIONS OF ESTIMATED GFR ARE PERFORMED USING THE 2020 CKD-EPI STUDY REFIT EQUATION WITHOUT THE RACE VARIABLE FOR THE IDMS-TRACEABLE CREATININE METHODS. https://jasn.asnjournals.org/content/early/ASN.89571 12547 Performed By: #### B MP #### [address] [address] Glucose [Mass/Vol] 152 mg/dL High 74 - 99 [facility] Comment on above: Performed By: #### B MP #### [address] [address] HCO3 (Bld) [Moles/Vol] 29 mmol/L Normal 21 - 32 [facility] Comment on above: Performed By: #### B MP #### [place] [id number] Potassium [Moles/Vol] 3.5 mmol/L Normal 3.5 - 5.3 [facility] Comment on above: Performed By: #### B MP #### [place] [id number] Sodium [Moles/Vol] 134 mmol/L Low 136 - 145 [facility] Comment on above: Performed By: #### B MP #### [place] [id number] Urea nitrogen [Mass/Vol] 13 mg/dL Normal 6 - 23 [facility] Comment on above: Performed By: #### B MP #### [place] [id number] CBC AND DIFFERENTIALon 09-12 % AUTOMATED IMMATURE GRAN 0.9 % Normal 0.0 - 0.9 [facility] Comment on above: Result Comment: Martina ture Granulocyte Count (IG) includes promyelocytes, myelocytes and metamyelocytes but does not include bands. Percent differential counts (%) should be interpreted in the context of the absolute cell counts (cells/L). Performed By: #### L ACT #### [address] [address] Basophils (Bld) [#/Vol] 0.08 10*3/uL Normal 0.00 - 0.10 [facility] Comment on above: Performed By: #### L ACT #### [address] [address] Basophils/100 WBC (Bld) 0.8 % Normal 0.0 - 2.0 [facility] Comment on above: Performed By: #### L ACT #### [address] [address] Eosinophils (Bld) [#/Vol] 0.52 10*3/uL High 0.00 - 0.40 [facility] Comment on above: Performed By: #### L ACT #### [address] [address] Eosinophils/100 WBC (Bld) 4.9 % Normal 0.0 - 6.0 [facility] Comment on above: Performed By: #### L ACT #### [address] [address] Erythrocyte distribution width (RBC) [Ratio] 17.2 % High 11.5 - 14.5 [facility] Comment on above: Performed By: #### L ACT #### [address] [address] Hematocrit (Bld) [Volume fraction] 28.1 % Low 36.0 - 46.0 [facility] Comment on above: Performed By: #### L ACT #### [address] [address] Hemoglobin (Bld) [Mass/Vol] 8.1 g/dL Low 12.0 - 16.0 [facility] Comment on above: Performed By: #### L ACT #### [address] [address] Lymphocytes (Bld) [#/Vol] 2.75 10*3/uL Normal 0.80 - 3.00 [facility] Comment on above: Performed By: #### L ACT #### [address] [address] Lymphocytes/100 WBC (Bld) 26.0 % Normal 13.0 - 44.0 [facility] Comment on above: Performed By: #### L ACT #### [address] [address] MCHC (RBC) [Mass/Vol] 28.8 g/dL Low 32.0 - 36.0 [facility] Comment on above: Performed By: #### L ACT #### [address] [address] MCV (RBC) [Entitic vol] 71 fL Low 80 - 100 [facility] Comment on above: Performed By: #### L ACT #### [address] [address] Monocytes (Bld) [#/Vol] 0.83 10*3/uL High 0.05 - 0.80 [facility] Comment on above: Performed By: #### L ACT #### [address] [address] Monocytes/100 WBC (Bld) 7.8 % Normal 2.0 - 10.0 [facility] Comment on above: Performed By: #### L ACT #### [address] [address] Neutrophils (Bld) [#/Vol] 6.31 10*3/uL High 1.60 - 5.50 [facility] Comment on above: Result Comment: Perc ent differential counts (%) should be interpreted in the context of the absolute cell counts (cells/L). Performed By: #### L ACT #### [address] [address] Neutrophils/100 WBC (Bld) 59.6 % Normal 40.0 - 80.0 [facility] Comment on above: Performed By: #### L ACT #### [address] [address] Platelets (Bld) [#/Vol] 261 10*3/uL Normal 150 - 450 [facility] Comment on above: Performed By: #### L ACT #### [address] [address] RBC 3.98 x10E12/L Low 4.00 - 5.20 [facility] Comment on above: Performed By: #### L ACT #### [address] [address] WBC (Bld) [#/Vol] 10.6 10*3/uL Normal 4.4 - 11.3 [facility] Comment on above: Performed By: #### L ACT #### [address] [address] Daily Progress Note-General Internal Medicineon 09-12-2022 Daily Progress Note-General Internal Medicine Service: General Internal Medicine Subjective Data: DARYN SHAH is a 76 year old Female who is Hospital Day # 5. Overnight Events: Patient had an uneventful night. Additional Information: Patient seen and examined bedside. She is very tearful. She is bedbound. She is thinking about rehab at this time. Objective Data: Objective Information: T PRBPMAPSpO2 [id number]/7497% Date/Time09/12 7: 7: 7: 7: 7:35 Range(36.1C - 36.8C ) (66 - 87 ) (16 - 20 ) (100 - 113 )/ (64 - 74 ) (95% - 97% ) Pain reported at 09/12 9:07: 3 = Mild ---- Intake and Output ----- Mn/Dy/Year TimeIntakeOutputNet Sep 12, 2022 6:00 [id number] Sep 11, 2022 10:00 [id number] Sep 11, 2022 2:00 [id number] The Intake and Output Totals for the last 24 hours are: IntakeOutputNet [id number] Physical Exam by System: Constitutional: Well developed, obese , awake/alert/oriented x3, no distress, alert and cooperative Eyes: PERRL, EOMI, clear sclera Head/Neck: Neck supple, no apparent injury, thyroid without mass or tenderness, No JVD, trachea midline, no bruits Respiratory/Thorax: Patent airways, CTAB, normal breath sounds with good chest expansion, thorax symmetric Cardiovascular: Regular, rate and rhythm, no murmurs, 2+ equal pulses of the extremities, normal S 1and S 2 Gastrointestinal: Nondistended, soft, non-tender, no rebound tenderness or guarding, no masses palpable, no organomegaly, +BS, no bruits Musculoskeletal: Left thigh cellulitis. Area marked, warm to touch + ,Area still red improved since yesterday , tenderness improved Neurological: alert and oriented x3, intact senses, motor, response and reflexes, normal strength Psychological: Appropriate mood and behavior Skin: No areas of skin bilateral leg areas Medication: Medications: Continuous Medications -------- No continuous medications are active Scheduled Medications -------- 1. Atenolol: 50 mg Oral 2 Times a Day 2. Atorvastatin: 40 mg Oral Daily 3. Famotidine: 20 mg Oral 2 Times a Day 4. Ferrous Sulfate: 325 mg Oral 2 Times a Day 5. Insulin Lispro Moderate Corrective Scale: unit(s) SubCutaneous 3 Times a Day Before Meals 6. Lisinopril: 5 mg Oral Daily 7. LORazepam: 1 mg Oral At Bedtime 8. Piperacillin - Tazobactam 3.375 gram/Iso-osmotic 50 mL Premix IVPB: 50 mL IntraVenous Piggyback Every 6 Hours 9. Potassium Chloride Extended Release: 10 mEq Oral Daily 10. Rivaroxaban: 20 mg Oral Daily 1800 11. Triamterene 37.5 mg- hydroCHLOROthiazide 25 mg - PEDS: 1 tablet(s) Oral Daily 12. Vancomycin - RPh to Dose - IV Piggy Back: 1 each As Specified Variable 13. Vancomycin IV Piggy Back: 1500 mg IntraVenous Piggyback Every 24 Hours 14. Venlafaxine Extended Release: 75 mg Oral Daily PRN Medications -------- 1. Acetaminophen: 650 mg Oral Every 4 Hours 2. Dextrose 50% in Water Injectable: 25 gram(s) IntraVenous Push Every 15 Minutes 3. Glucagon Injectable: 1 mg IntraMuscular Every 15 Minutes 4. Ondansetron Injectable: 4 mg IntraVenous Push Every 4 Hours 5. Polyethylene Glycol: 17 gram(s) Oral Daily 6. Sodium Chloride 0.9% Injectable Flush: 10 mL IntraVenous Flush Every 8 Hours and as Needed Recent Lab Results: Results: CBC: 09/12/2022 05:30 \ Hgb / \ 8.1 L / WBC Plt 10.6 261 / Hct \ / 28.1 L \ RBC: 3.98 L MCV: 71 L Neutrophil %: 59.6 BMP: 09/12/2022 05:30 NA+ Cl- BUN / 134 L 97 L 13 / -------- Glucose --- 152 H K+ HCO3- Creat \ 3.5 29 0.88 \ Calcium : 8.4 L Anion Gap : 12 Radiology Results: Results: Conclusion: CONCLUSIONS: Right Lower Venous: No evidence of acute deep vein thrombus visualized in the right lower extremity. Left Lower Venous: No evidence of acute deep vein thrombus visualizedin the left lower extremity. Imaging & Doppler Findings: Right Compress Thrombus SFJ Yes None Left Compress Thrombus SFJ Yes None Right Compressible Thrombus Flow Distal External Iliac Yes None CFV Yes None Spontaneous/Phasic PFV Yes None FV Proximal Yes None Spontaneous/Phasic FV Mid Yes None FV Distal Yes None Popliteal Yes None Spontaneous/Phasic Peroneal Yes None PTV Yes None Left Compress Thrombus Flow Distal External IliacYes None CFV Yes None Spontaneous/Phasic PFV Yes None FV Proximal Yes None Spontaneous/Phasic FV Mid Yes None FV Distal Yes None Popliteal Yes None Spontaneous/Phasic Peroneal Yes None PTV Yes None 10093 Don Rico MD Final [facility] Venous Duplex Ultrasound for DVT [Sep 11 2022 7:14PM] Conclusion: CONCLUSIONS: 1. Left ventricular systolic function is normal with (more content not included)... Normal [facility] Daily Progress Note-Nephrolo [facility] 09-12-2022 Daily Progress Note-Nephrology Service: Nephrology Subjective Data: DARYN SHAH is a 76 year old Female who is Hospital Day # 5. Patient seen and examined at the bedside this morning She is resting comfortably in bed No major complaints Does get teary as she wants to go home and be with her . Objective Data: Objective Information: T PRBPMAPSpO2 [id number]/7497% Date/Time09/12 7: 7: 7: 7: 7:35 Range(36.1C - 36.8C ) (66 - 87 ) (16 - 20 ) (100 - 113 )/ (64 - 74 ) (95% - 97% ) Pain reported at 09/12 9:07: 3 = Mild ---- Intake and Output ----- [facility]Dy[facility] Sep 12, 2022 6:00 [id number] Sep 11, 2022 10:00 [id number] Sep 11, 2022 2:00 [id number] The Intake and Output Totals for the last 24 hours are: [facility]Out[facility] [id number] Physical Exam by System: Constitutional: Awake, alert, oriented, no acute distress Eyes: Extraocular muscles intact ENMT: Moist mucous membranes Head/Neck: Normocephalic, atraumatic Respiratory/Thorax: Bilateral equal breath sounds Cardiovascular: Positive S1-S2, irregular Gastrointestinal: Soft, nontender, nondistended, centrally obese Musculoskeletal: Resting comfortably in bed Extremities: Positive bilateral lower extremity edema Neurological: Awake, alert, oriented Psychological: Cooperative Skin: Warm and dry Chronic venous stasis of bilateral lower extremities Medication: Medications: Continuous Medications -------- No continuous medications are active Scheduled Medications -------- 1. Atenolol: 50 mg Oral 2 Times a Day 2. Atorvastatin: 40 mg Oral Daily 3. Famotidine: 20 mg Oral 2 Times a Day 4. Ferrous Sulfate: 325 mg Oral 2 Times a Day 5. Insulin Lispro Moderate Corrective Scale: unit(s) SubCutaneous 3 Times a Day Before Meals 6. Lisinopril: 5 mg Oral Daily 7. LORazepam: 1 mg Oral At Bedtime 8. Piperacillin - Tazobactam 3.375 gram/Iso-osmotic 50 mL Premix IVPB: 50 mL IntraVenous Piggyback Every 6 Hours 9. Potassium Chloride Extended Release: 10 mEq Oral Daily 10. Rivaroxaban: 20 mg Oral Daily 1800 11. Triamterene 37.5 mg- hydroCHLOROthiazide 25 mg - PEDS: 1 tablet(s) Oral Daily 12. Vancomycin - RPh to Dose - IV Piggy Back: 1 each As Specified Variable 13. Vancomycin IV Piggy Back: 1500 mg IntraVenous Piggyback Every 24 Hours 14. Venlafaxine Extended Release: 75 mg Oral Daily PRN Medications -------- 1. Acetaminophen: 650 mg Oral Every 4 Hours 2. Dextrose 50% in Water Injectable: 25 gram(s) IntraVenous Push Every 15 Minutes 3. Glucagon Injectable: 1 mg IntraMuscular Every 15 Minutes 4. Ondansetron Injectable: 4 mg IntraVenous Push Every 4 Hours 5. Polyethylene Glycol: 17 gram(s) Oral Daily 6. Sodium Chloride 0.9% Injectable Flush: 10 mL IntraVenous Flush Every 8 Hours and as Needed Recent Lab Results: Results: CBC: 09/12/2022 05:30 \ Hgb / \ 8.1 L / WBC Plt 10.6 261 / Hct \ / 28.1 L \ RBC: 3.98 L MCV: 71 L Neutrophil %: 59.6 BMP: 09/12/2022 05:30 NA+ Cl- BUN / 134 L 97 L 13 / -------- Glucose --- 152 H K+ HCO3- Creat \ 3.5 29 0.88 \ Calcium : 8.4 L Anion Gap : 12 Assessment and Plan: Code Status: Code StatusFull Code Assessment: Hyponatremia Peripheral edema with volume overload and chronic lymphedema Obesity Weakness with inability to walk Leukocytosis Iron deficiency anemia with anemia of chronic disease present Diabetes mellitus type 2 Hypertension Plan: She has evidence of underlying SIADH with an elevated urine osmole and an elevated urine sodium At this time with supportive measures her sodium has risen to 134 At this time it appears that we can likely keep her sodium corrected with a fluid restriction I would recommend continuing a fluid restriction at this time No other interventions at this time from my standpoint Please call with any issues or needs going forward I will sign off Electronic Signatures: Ru Mills () (Signed 12-Sep-2022 11:24) Authored: Service, Subjective Data, Objective Data, Assessment and Plan, Note Completion Last Updated: 12-Sep-2022 11:24 by Ru Mills (DO) [facility] GLUCOSE-POCTon 09-12-2022 Glucose [Mass/Vol] 177 mg/dL High 74 - [address] [place] [address] Comment on above: Performed By: #### U ARFX #### [address] [address] Glucose [Mass/Vol] 159 mg/dL High 74 - [address] [place] [address] Comment on above: Performed By: #### L ACT #### [address] [address] Glucose [Mass/Vol] 137 mg/dL High 74 - [address] [place] [address] Comment on above: Performed By: #### G ROLLY ####[address] [address] Glucose [Mass/Vol] 146 mg/dL High [address] [place] [address] Comment on above: Performed By: #### L ACT #### [address] [address] OSMOLALITY,URINE SPOTon OSMOLALITY,URINE SPOT 441 mOsm/kg Normal 200 - 1200 [facility] Comment on above: Performed By: #### L ACT #### [address] [address] OT Evaluation v2-occupationa l therapyon 09-12-2022 OT Evaluation v2-occupational therapy Rehab: Info: Mode of Treatmentattempted; occupational therapy Evaluation Not Performedx2 attempts made to see pt between 1447 and 1513. Pt unavailable at this time, with other care provider. Will attempt tomorrow. 09/13 Electronic Signatures: Jadyn Monk (OT) (Signed 12-Sep-2022 15:13) Authored: Info Last Updated: 12-Sep-2022 15:13 by Jadyn Monk (OT) [facility] Rehab Note-individual therap yon 09-12-2022 Rehab Note-individual therapy Rehab: Info: Disciplinephysical physical therapy professor Mode of Treatmentindividual therapy; physical therapy Time IN10:35 Time OUT11:06 Total Treatment [id number] Patient in ... at end of sessionbed, 3 railings up; alarm on Patient Effortadequate Line and TubesIV; telemetry; pure wick catheter Pre Treatment Patient Positionsupine Pre Treatment SpO2 (%)96 % Pre Treatment Oxygen Deliveryroom air During Treatment Patient Positionsitting During Treatment SpO2 (%)96 % During Treatment Oxygen Deliveryroom air Post Treatment Patient Positionsupine Post Treatment SpO2 (%)97 % Vision/Cognition: Affect/Mental Status (Cognitive)WFL Mobility/Tone: Bed Mobility Assessment/Interventions supine to sit to supine Supine to Sit to Supine [place] (Bed Mobility)contact guard; 1 person assist; minimum assist (75% patient effort) Assistive Device (Bed Mobility)bed rails Motor: Lower Extremity (Therapeutic Exercise)B/L: AP/heel slides/SAQ's/hip adduction/LAQ's/HR/TR's/ hip abduction x10 each Sensory: Pre-Treatment Pain Rating0/10 - no pain Post-Treatment Pain Rating0/10 - no pain Outcomes Tools: Turning from your back to your side while in a flat bed without using bedrails a lot Moving from lying on your back to sitting on the side of a flat bed without using bedrailsa lot Moving to and from bed to chair (including a wheelchair)a lot Standing up from a chair using your arms (e.g. wheelchair or bedside chair)a lot To walk in hospital roomtotal Climbing 3-5 steps with railingtotal AM-PAC (PT) Total Score10 Outcome Summary: Progress: Physical Therapyprogress toward functional goals is gradual Outcome Summary: Physical TherapyPt. laying in bed upon arrival, agreeable to therapy. Pt. denies having pain or SOB but does c/o fatigue. Pt. able to complete both supine and seated exercises with fair tolerance. Rest breaks needed d/t fatigue. Pt. sat EOB for most of session with good trunk control noted. Pt. back in bed with call light within reach, no c/o increased sx.'s. Continue with POC and progress per tolerance to improve functional mobility and transfers with greater ease and safety. AD Electronic Signatures: Eboni Mckeon (ARABIC LINGUIST) (Signed 12-Sep-2022 12:06) Authored: Info, Vision/Cognition, Mobility/Tone, Motor, Sensory, Outcomes Tools, Short Term Goals, Outcome Summary James Mendez (PT) (Signed 13-Sep-2022 08:29) Co-Signer: Outcome Summary Last Updated: 13-Sep-2022 08:29 by James Mendez (PT) Normal [facility] SODIUM, URINE SPOTon 023 CREATININE,URINE 45.6 mg/dL Normal 20.0 - 320.0 [facility] Comment on above: Performed By: #### G ROLLY #### [address] [address] Sodium (U) [Moles/Vol] 156 mmol/L Normal Not Established [facility] Comment on above: Performed By: #### G ROLLY #### [address] [address] SODIUM/CREAT RATIO 342 mmol/g Creat Normal Not Established [facility] Comment on above: Performed By: #### G ROLLY #### [address] [address] URIC ACIDon 09-12-2022 Urate [Mass/Vol] 4.1 mg/dL Normal 2.3 - 6.7 [facility] Comment on above: Result Comment: Loly puncture immediately after or during the administration of Metamizole may lead to falsely low results. Testing should be performed immediately prior to Metamizole dosing. Performed By: #### L ACT #### [address] [address] CBC AND DIFFERENTIALon 09-11 % AUTOMATED IMMATURE GRAN 0.5 % Normal 0.0 - 0.9 [facility] Comment on above: Result Comment: Martina ture Granulocyte Count (IG) includes promyelocytes, myelocytes and metamyelocytes but does not include bands. Percent differential counts (%) should be interpreted in the context of the absolute cell counts (cells/L). Performed By: #### U ARFX #### [address] [address] Basophils (Bld) [#/Vol] 0.06 10*3/uL Normal 0.00 - 0.10 [facility] Comment on above: Performed By: #### U ARFX #### [address] [address] Basophils/100 WBC (Bld) 0.5 % Normal 0.0 - 2.0 [facility] Comment on above: Performed By: #### U ARFX #### [address] [address] Eosinophils (Bld) [#/Vol] 0.48 10*3/uL High 0.00 - 0.40 [facility] Comment on above: Performed By: #### U ARFX #### [address] [address] Eosinophils/100 WBC (Bld) 4.0 % Normal 0.0 - 6.0 [facility] Comment on above: Performed By: #### U ARFX #### [address] [address] Erythrocyte distribution width (RBC) [Ratio] 17.1 % High 11.5 - 14.5 [facility] Comment on above: Performed By: #### U ARFX #### [address] [address] Hematocrit (Bld) [Volume fraction] 27.8 % Low 36.0 - 46.0 [facility] Comment on above: Performed By: #### U ARFX #### [address] [address] Hemoglobin (Bld) [Mass/Vol] 8.0 g/dL Low 12.0 - 16.0 [facility] Comment on above: Performed By: #### U ARFX #### [address] [address] Lymphocytes (Bld) [#/Vol] 2.95 10*3/uL Normal 0.80 - 3.00 [facility] Comment on above: Performed By: #### U ARFX #### [address] [address] Lymphocytes/100 WBC (Bld) 24.4 % Normal 13.0 - 44.0 [facility] Comment on above: Performed By: #### U ARFX #### [address] [address] MCHC (RBC) [Mass/Vol] 28.8 g/dL Low 32.0 - 36.0 [facility] Comment on above: Performed By: #### U ARFX #### [address] [address] MCV (RBC) [Entitic vol] 71 fL Low 80 - 100 [facility] Comment on above: Performed By: #### U ARFX #### [address] [address] Monocytes (Bld) [#/Vol] 1.01 10*3/uL High 0.05 - 0.80 [facility] Comment on above: Performed By: #### U ARFX #### [address] [address] Monocytes/100 WBC (Bld) 8.4 % Normal 2.0 - 10.0 [facility] Comment on above: Performed By: #### U ARFX #### [address] [address] Neutrophils (Bld) [#/Vol] 7.53 10*3/uL High 1.60 - 5.50 [facility] Comment on above: Result Comment: Perc ent differential counts (%) should be interpreted in the context of the absolute cell counts (cells/L). Performed By: #### U ARFX #### [address] [address] Neutrophils/100 WBC (Bld) 62.2 % Normal 40.0 - 80.0 [facility] Comment on above: Performed By: #### U ARFX #### [address] [address] Platelets (Bld) [#/Vol] 252 10*3/uL Normal 150 - 450 [facility] Comment on above: Performed By: #### U ARFX #### [address] [address] RBC 3.94 x10E12/L Low 4.00 - 5.20 [facility] Comment on above: Performed By: #### U ARFX #### [address] [address] WBC (Bld) [#/Vol] 12.1 10*3/uL High 4.4 - 11.3 [facility] Comment on above: Performed By: #### U ARFX #### [place] [id number] COMPREHENSIVE PANELon 2022 Albumin [Mass/Vol] 3.1 g/dL Low 3.4 - 5.0 [facility] Comment on above: Performed By: #### G ROLLY #### [place] [address] ALP [Catalytic activity/Vol] 89 U/L Normal 33 - 136 [facility] Comment on above: Performed By: #### G ROLLY #### [place] [id number] ALT [Catalytic activity/Vol] 6 U/L Low 7 - 45 [facility] Comment on above: Result Comment: Madhavi ents treated with Sulfasalazine may generate falsely decreased results for ALT. Performed By: #### G ROLYL #### [place] [id number] Anion gap [Moles/Vol] 9 mmol/L Low 10 - 20 [facility] Comment on above: Performed By: #### G ROLLY #### [place] [id number] AST [Catalytic activity/Vol] 10 U/L Normal 9 - 39 [facility] Comment on above: Performed By: #### G ROLLY #### [address] [address] Bilirubin [Mass/Vol] 0.4 mg/dL Normal 0.0 - 1.2 [facility] Comment on above: Performed By: #### G ROLLY #### [address] [address] Calcium [Mass/Vol] 8.5 mg/dL Low 8.6 - 10.3 [facility] Comment on above: Performed By: #### G ROLLY #### [address] [address] Chloride [Moles/Vol] 96 mmol/L Low 98 - 107 [facility] Comment on above: Performed By: #### G ROLLY #### [address] [address] Creatinine [Mass/Vol] 0.72 mg/dL Normal 0.50 - 1.05 [facility] Comment on above: Performed By: #### G ROLLY #### [address] [address] GFR/1.73 sq M.predicted among non-blacks MDRD (S/P/Bld) [Vol rate/Area] 87 mL/min/{1.73_m2} Normal >90 [facility] Comment on above: Result Comment: CALC ULATIONS OF ESTIMATED GFR ARE PERFORMED USING THE 2020 CKD-EPI STUDY REFIT EQUATION WITHOUT THE RACE VARIABLE FOR THE IDMS-TRACEABLE CREATININE METHODS. https://jasn.asnjournals.org/content/early/ASN.18604 72763 Performed By: #### G ROLLY #### [address] [address] Glucose [Mass/Vol] 136 mg/dL High 74 - 99 [facility] Comment on above: Performed By: #### G ROLLY #### [address] [address] HCO3 (Bld) [Moles/Vol] 30 mmol/L Normal 21 - 32 [facility] Comment on above: Performed By: #### G ROLLY #### [address] [address] Potassium [Moles/Vol] 3.5 mmol/L Normal 3.5 - 5.3 [facility] Comment on above: Performed By: #### G ROLLY #### [address] [address] Protein [Mass/Vol] 5.9 g/dL Low 6.4 - 8.2 [facility] Comment on above: Performed By: #### G ROLLY #### [address] [address] Sodium [Moles/Vol] 131 mmol/L Low 136 - 145 [facility] Comment on above: Performed By: #### G ROLLY #### [id number] [place] [address] Urea nitrogen [Mass/Vol] 13 mg/dL Normal 6 - 23 [facility] Comment on above: Performed By: #### G ROLLY #### [id number] [place] [address] Consult-Nephrologyon 023 Consult-Nephrology Service: Service: Nephrology Consult: Consult requested by (Attending Name): Angelique Clarke Reason: Hyponatremia History of Present Illness: HPI: DARYN SHAH is a 76 year old Female She presented to the emergency room after she was starting to feel ill she was feeling much more weak she is bedbound and unable to walk but states that she is feeling a little bit more weak and also had a urinary tract infection. She felt like she had a urinary tract infection because she was urinating pretty frequently She has a past medical history that includes hypertension diabetes dyslipidemia obesity atrial fibrillation weakness with inability to walk depression Past surgical history includes D&C, tubal ligation Family history includes heart disease Social history includes that she lives at home with her family This a.m. I met her she is resting comfortably in bed No major complaints currently She states that she really wants to go home A full 10 point review of systems was obtained is negative except HPI as above Review Family/Social History and ROS: Social History: Smoking Status: never smoker (1) Alcohol Use: denies(1) Drug Use: denies (1) Allergies: No Known Allergies: Objective: Objective Information: T PRBPMAPSpO2 [id number]/7095% Date/Time09/11 7: 7: 7: 7: 7:54 Range(36.4C - 36.7C ) (66 - 94 ) (16 - 19 ) (107 - 124 )/ (69 - 74 ) (94% - 98% ) Physical Exam by System: Constitutional: Awake, alert, oriented, no acute distress Eyes: Extraocular muscles intact ENMT: Moist mucous membranes Head/Neck: Normocephalic, atraumatic Respiratory/Thorax: Bilateral equal breath sounds Cardiovascular: Positive S1-S2, irregular Gastrointestinal: Soft, nontender, nondistended, centrally obese Musculoskeletal: Resting comfortably in bed Extremities: Positive bilateral lower extremity edema Neurological: Awake, alert, oriented Psychological: Cooperative Skin: Warm and dry Chronic venous stasis of bilateral lower extremities Medications: Medications: Continuous Medications -------- No continuous medications are active Scheduled Medications -------- 1. Atenolol: 50 mg Oral 2 Times a Day 2. Atorvastatin: 40 mg Oral Daily 3. Famotidine: 20 mg Oral 2 Times a Day 4. Insulin Lispro Moderate Corrective Scale: unit(s) SubCutaneous 3 Times a Day Before Meals 5. Lisinopril: 5 mg Oral Daily 6. LORazepam: 1 mg Oral At Bedtime 7. Piperacillin - Tazobactam 3.375 gram/Iso-osmotic 50 mL Premix IVPB: 50 mL IntraVenous Piggyback Every 6 Hours 8. Potassium Chloride Extended Release: 10 mEq Oral Daily 9. Rivaroxaban: 20 mg Oral Daily 1800 10. Triamterene 37.5 mg- hydroCHLOROthiazide 25 mg - PEDS: 1 tablet(s) Oral Daily 11. Vancomycin - RPh to Dose - IV Piggy Back: 1 each As Specified Variable 12. Vancomycin IV Piggy Back: 1500 mg IntraVenous Piggyback Every 24 Hours 13. Venlafaxine Extended Release: 75 mg Oral Daily PRN Medications -------- 1. Acetaminophen: 650 mg Oral Every 4 Hours 2. Dextrose 50% in Water Injectable: 25 gram(s) IntraVenous Push Every 15 Minutes 3. Glucagon Injectable: 1 mg IntraMuscular Every 15 Minutes 4. Ondansetron Injectable: 4 mg IntraVenous Push Every 4 Hours 5. Polyethylene Glycol: 17 gram(s) Oral Daily 6. Sodium Chloride 0.9% Injectable Flush: 10 mL IntraVenous Flush Every 8 Hours and as Needed Recent Lab Results: Results: I have reviewed these laboratory results: Complete Blood Count + Differential [Drawn 11-Sep-2022 04:30:00], Complete Blood Count + Differential [Drawn 10-Sep-2022 05:09:00], Complete Blood Count + Differential [Drawn 09-Sep-2022 04:54:00], Complete Blood Count + Differential [Drawn 08-Sep-2022 12:56:00], Comprehensive Metabolic Panel [Drawn 11-Sep-2022 04:30:00], Comprehensive Metabolic Panel [Drawn 09-Sep-2022 04:54:00], Comprehensive Metabolic Panel [Drawn 08-Sep-2022 12:56:00], Basic Metabolic Panel [Drawn 10-Sep-2022 05:08:00], Magnesium, Serum [Drawn 10-Sep-2022 05:08:00], Magnesium, Serum [Drawn 09-Sep-2022 04:54:00], Vancomycin Level, Random [Drawn 10-Sep-2022 05:08:00], Iron + TIBC, Serum [Drawn 09-Sep-2022 04:54:00], Hemoglobin A1C, Level [Drawn 09-Sep-2022 04:54:00], Ferritin, Serum [Drawn 09-Sep-2022 04:54:00], Brain Natriuretic Peptide [Drawn 09-Sep-2022 04:54:00], Urinalysis with Culture if Indicated [Drawn 08-Sep-2022 14:21:00], Urinalysis, Microscopic [Drawn 08-Sep-2022 14:21:00], Culture, Urine [Drawn 08-Sep-2022 14:21:00], Culture, Blood [Drawn 08-Sep-2022 13:02:00], Culture, Blood [Drawn 08-Sep-2022 12:54:00], Lactate, Level [Drawn 08-Sep-2022 12:54:00], Osmolality, Serum [Drawn 08-Sep-2022 12:53:00], Coronavirus 2019 by PCR [Drawn 08-Sep-2022 12:52:00]. Radiology Results: Results: Ultrasound Renal Bilateral [J (more content not included)... Normal [facility] Daily Progress Note-General Internal Medicineon 09-11-2022 Daily Progress Note-General Internal Medicine Service: General Internal Medicine Subjective Data: DARYN SHAH is a 76 year old Female who is Hospital Day # 4. Overnight Events: Patient had an uneventful night. Additional Information: Patient seen and examined at bedside. She is doing well. No issues today Objective Data: Objective Information: T PRBPMAPSpO2 Value36.53943093/7095% Date/Time09/11 7: 7: 7: 7: 7:54 Range(36.4C - 36.7C ) (66 - 94 ) (16 - 19 ) (107 - 124 )/ (69 - 74 ) (94% - 98% ) Pain reported at 09/10 20:00: 0 = None ---- Intake and Output ----- Mn/Dy/Year TimeIntakeOut[facility] centerNet Sep 11, 2022 6:00 [id number] Sep 10, 2022 10:00 [id number] Sep 10, 2022 2:00 [id number] The Intake and Output Totals for the last 24 hours are: IntakeOutputNet [id number] Physical Exam by System: Constitutional: Well developed, obese , awake/alert/oriented x3, no distress, alert and cooperative Eyes: PERRL, EOMI, clear sclera Head/Neck: Neck supple, no apparent injury, thyroid without mass or tenderness, No JVD, trachea midline, no bruits Respiratory/Thorax: Patent airways, CTAB, normal breath sounds with good chest expansion, thorax symmetric Cardiovascular: Regular, rate and rhythm, no murmurs, 2+ equal pulses of the extremities, normal S 1and S 2 Gastrointestinal: Nondistended, soft, non-tender, no rebound tenderness or guarding, no masses palpable, no organomegaly, +BS, no bruits Musculoskeletal: Left thigh cellulitis. Area marked, warm to touch ,Area still red, tenderness improved Neurological: alert and oriented x3, intact senses, motor, response and reflexes, normal strength Psychological: Appropriate mood and behavior Skin: No areas of skin bilateral leg areas Medication: Medications: Continuous Medications -------- No continuous medications are active Scheduled Medications -------- 1. Atenolol: 50 mg Oral 2 Times a Day 2. Atorvastatin: 40 mg Oral Daily 3. Famotidine: 20 mg Oral 2 Times a Day 4. Insulin Lispro Moderate Corrective Scale: unit(s) SubCutaneous 3 Times a Day Before Meals 5. Lisinopril: 5 mg Oral Daily 6. LORazepam: 1 mg Oral At Bedtime 7. Piperacillin - Tazobactam 3.375 gram/Iso-osmotic 50 mL Premix IVPB: 50 mL IntraVenous Piggyback Every 6 Hours 8. Potassium Chloride Extended Release: 10 mEq Oral Daily 9. Rivaroxaban: 20 mg Oral Daily 1800 10. Triamterene 37.5 mg- hydroCHLOROthiazide 25 mg - PEDS: 1 tablet(s) Oral Daily 11. Vancomycin - RPh to Dose - IV Piggy Back: 1 each As Specified Variable 12. Vancomycin IV Piggy Back: 1500 mg IntraVenous Piggyback Every 24 Hours 13. Venlafaxine Extended Release: 75 mg Oral Daily PRN Medications -------- 1. Acetaminophen: 650 mg Oral Every 4 Hours 2. Dextrose 50% in Water Injectable: 25 gram(s) IntraVenous Push Every 15 Minutes 3. Glucagon Injectable: 1 mg IntraMuscular Every 15 Minutes 4. Ondansetron Injectable: 4 mg IntraVenous Push Every 4 Hours 5. Polyethylene Glycol: 17 gram(s) Oral Daily 6. 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 A nodule at this level suspected on the ultrasound of 12/07/2021 was not seen on a three-phase CT of 01/04/2022. As a precaution, six-month follow-up renal ultrasound is recommended. Ultrasound Renal Bilateral [Sep 08 2022 7:18PM] Impression: 1. No evidence of acute cardiopulmonary process. See discussion above Xray Chest 1 View [Sep 08 2022 1:12PM] Assessment and Plan: Code Status: Code StatusFull Code Assessment: 76-year-old female with past medical history of hypertension, hyperlipidemia, A-fib on anticoagulation, obesity, lymphedema, nonambulatory status presents with fever, chills. She does have leukocytosis, anemia, elevated INR, hyponatremia and urinary tract infection. Assessment Cellulitis left thigh Sepsis secondary to urinary tract infection Acute urinary tract infection Leukocytosis Thrombocytopenia Anemia Hyponatremia Supratherapeutic INR, resolved Chronic lymphedema with open wounds Hi (more content not included)... Normal [facility] Echocardiogramon 09-11-2022 [place] [address] ext-[phone], TRANSTHORACIC ECHOCARDIOGRAM REPORT Patient Name: DARYN SHAH Reading Physician: [id number] Norman Valdivia MD Study Date: 09/11/2022 Referring ANGELIQUE CLARKE Physician: MRN/PID: [id number] PCP: Accession/Order#: [id number] [address] Location: Date of : 1945 Fellow: Gender: F Nurse: Admit Date: 09/08/2022 Rn Transitional: BJ Gates RVT Admission Status: Inpatient - Additional Staff: Routine Height: 167.00 cm CC Report to: Weight: 116.00 kg Study Type: Echocardiogram BSA: 2.21 m2 Blood Pressure: 111 /70 mmHg Diagnosis/ICD: I48.0-Paroxysmal atrial fibrillation Indication: AFib Procedure/CPT: Echo Complete w Full Doppler-[id number] Patient History: Pertinent History: Previous echo 02-14-2019. Study Detail: The following Echo studies were performed: 2D, M-Mode, Doppler and color flow. Definity used as a contrast agent for endocardial border definition. Total contrast used for this procedure was 1 mL via IV push. A bubble study was not performed. The patient was awake. PHYSICIAN INTERPRETATION: Left Ventricle: Left ventricular systolic function is normal, with an estimated ejection fraction of 55%. There are no regional wall motion abnormalities. The left ventricular cavity size is normal. Left ventricular diastolic filling was indeterminate. Left Atrium: The left atrium is severely dilated. Right Ventricle: The right ventricle is normal in size. There is normal right ventricular global systolic function. Right Atrium: The right atrium is mildly dilated. Aortic Valve: The aortic valve is probably trileaflet. There is no evidence of aortic valve regurgitation. The peak instantaneous gradient of the aortic valve is 23.2 mmHg. The mean gradient of the aortic valve is 12.0 mmHg. Mean transaortic gradient 14 mmHg, peak velocity 2.4 m/s, dimensionless index 0.39, calculated aortic valve area 1.1 cm?. Mitral Valve: The mitral valve is abnormal. There is trace mitral valve regurgitation. Calcified mitral annulus and leaflets. Tricuspid Valve: The tricuspid valve is structurally normal. There is trace tricuspid regurgitation. Pulmonic Valve: The pulmonic valve is not well visualized. The pulmonic valve regurgitation was not well visualized. Pericardium: There is no pericardial effusion noted. Aorta: The aortic root is normal. Systemic Veins: The inferior vena cava appears to be of normal size. There is IVC inspiratory collapse greater than 50%. CONCLUSIONS: 1. Left ventricular systolic function is normal with a 55% estimated ejection fraction. 2. The left atrium is severely dilated. 3. Findings appear consistent with mild aortic stenosis. QUANTITATIVE DATA SUMMARY: 2D MEASUREMENTS: Normal Ranges: Ao Root d: 2.80 cm (2.0-3.7cm) LAs: 4.30 cm (2.7-4.0cm) IVSd: 1.00 cm (0.6-1.1cm) LVPWd: 1.26 cm (0.6-1.1cm) LVIDd: 4.85 cm (3.9-5.9cm) LVIDs: 3.25 cm LV Mass Index: 92.5 g/m2 LV % FS 33.0 % LA VOLUME: Normal Ranges: LA Vol A4C: 87.5 ml (22+/-6mL/m2) LA Vol A2C: 106.4 ml LA Vol BP: 104.8 ml LA Vol Index A4C: 39.5ml/m2 LA Vol Index A2C: 48.0 ml/m2 LA Vol Index BP: 47.3 ml/m2 LA Area A4C: 26.4 cm2 LA Area A2C: 26.8 cm2 LA Major Critz A4C: 6.8 cm LA Major Critz A2C: 5.7 cm LA Volume Index: 44.3 ml/m2 LA Vol A4C: 83.9 ml LA Vol A2C: 98.0 ml M-MODE MEASUREMENTS: Normal Ranges: AoV Exc: 1.10 cm (1.5-2.5cm) AORTA MEASUREMENTS: Normal Ranges: AoV Exc: 1.10 cm (1.5-2.5cm) LV SYSTOLIC FUNCTION BY 2D PLANIMETRY (MOD): Normal Ranges: EF-A4C View: 53.8 % (>=55%) EF-A2C View: 69.3 % EF-Biplane: 62.3 % LV DIASTOLIC FUNCTION: Normal Ranges: MV Peak E: 1.10 m/s (0.7-1.2 m/s) MITRAL VALVE: Normal Ranges: MV DT: 194 msec (150-240msec) MITRAL INSUFFICIENCY: Normal Ranges: MR Vmax: 315.00 cm/s AORTIC VALVE: Normal Ranges: AoV Vmax: 2.41 m/s (<=1.7m/s) AoV Peak P.2 mmHg (<20mmHg) AoV Mean P.0 mmHg (1.7-11.5mmHg) LVOT Max Filemon: 0.93 m/s (<=1.1m/s) AoV VTI: 59.20 cm (18-25cm) LVOT VTI: 20.30 cm LVOT Diameter: 2.00 cm (1.8-2.4cm) AoV Area, VTI: 1.08 cm2 (2.5-5.5cm2) AoV Area,Vmax: 1.21 cm2 (2.5-4.5cm2) AoV Dimensionless Index: 0.34 RIGHT VENTRICLE: RV 1 3.37 cm RV 2 2.34 cm RV 3 6.44 cm TAPSE: 12.4 mm TRICUSPID VALVE/RVSP: Normal Ranges: Peak TR Velocity: 2.90 m/s RV Syst Pressure: 36.6 mmHg (< 30mmHg) PULMONIC VALVE: Normal Ranges: PV Accel Time: 56 msec (>120ms) PV Max Filemon: 1.1 m/s (0.6-0.9m/s) PV Max P.5 mmHg [id number] Norman Valdivia MD Electronically signed on 09/11/2022 at 11:54:26 AM Final Normal [facility] FECAL OCCULT BLD IMMUNOASSAY on 09-11-2022 FECAL OCCULT BLD IMMUNOASSAY Negative Normal Negative [facility] Comment on above: Result Comment: This test detects colorectal occult blood. Not all colorectal neoplasms induce bleeding. This test is not indicated for upper GI bleeding, anemia or iron deficiency evaluation. . This test is not validated for pediatric populations, interpret pediatric results in the context of patient presentations. . Digital Rectal Exam (TOBIAS) which induces bleeding may cause false positive results. If this occurs have patient submit stool at a future date. Performed By: #### U ARFX #### [place] [address] Lab Specimen Source Stool Normal [facility] Comment on above: Performed By: #### U ARFX #### [id number] GLUCOSE-POCTon 09-11-2022 Glucose [Mass/Vol] 169 mg/dL High 74 - [address] [place] [address] Comment on above: Performed By: #### U ARFX #### [address] [address] Glucose [Mass/Vol] 203 mg/dL High 74 - [address] [place] [address] Comment on above: Performed By: #### G ROLLY #### [address] [address] Glucose [Mass/Vol] 134 mg/dL High 74 - 99 [facility] Comment on above: Performed By: #### G ROLLY #### [facility] [address] [place] [address] Glucose [Mass/Vol] 153 mg/dL High 74 - 99 [facility] Comment on above: Performed By: #### G ROLLY ####[facility] [place] [address] Rehab Note-physical therapyo n 09-11-2022 Rehab Note-physical therapy Rehab: Info: Disciplinephysical physical therapy professor Mode of Treatmentphysical therapy Time IN13:54 Time OUT14:31 Total Treatment [id number] Patient in ... at end of sessionbed, 0 railings up; bed, 3 railings up; alarm on; family members in room Patient Effortgood Symptoms Noted During/After Treatmentfatigue Line and TubesIV; telemetry; purwick Pre Treatment Patient Positionsitting Pre Treatment Heart Rate (beats/min)77 Pre Treatment SpO2 (%)97 % Pre Treatment Oxygen Deliveryroom air Post Treatment Patient Positionsitting Post Treatment Heart Rate (beats/min)94 Post Treatment SpO2 (%)94 % Post Treatment Oxygen Deliveryroom air Vision/Cognition: Affect/Mental Status (Cognitive)WFL Orientation Status (Cognition)oriented x 3 Mobility/Tone: Assistive Device (Bed Mobility)bed rails Comment, Bed MobilityHOB elevated approx 45 degrees SBA to complete Impairments Impacting Function (Mobility)endurance/acti vity tolerance; range of motion; strength; shortness of breath; pain Motor: Lower Extremity (Therapeutic Exercise)B/L: 4 way ankle resisted, AP, Hip Abd/add , heel slides, quad set, SAQ LAQ Hip Add ISO TrA sets 10 reps each Sensory: Comment, Pre/Post Treatment PainShe reports O/10 L knee pain at rest and 4-5/10 with activity. Notes stiffness in B/L knees. Outcomes Tools: Turning from your back to your side while in a flat bed without using bedrails a little Moving from lying on your back to sitting on the side of a flat bed without using bedrailsa little Moving to and from bed to chair (including a wheelchair)total Standing up from a chair using your arms (e.g. wheelchair or bedside chair) total To walk in hospital roomtotal Climbing 3-5 steps with railingtotal AM-PAC (PT) Total Score10 Outcome Summary: Progress: Physical Therapyprogress toward functional goals is gradual Outcome Summary: Physical TherapyPatient became emotional when nursing informatics analyst kept adjusting portable telemetry and stating her HR was down in 20's. During session patient very alert and oriented and with therapist's pulse ox she was registering in 70's to 90's . She completed all LE PREs with verbal cues and demo'd limited ROM. Introduced core stability exercises and she voiced good understanding with instruction. Cont with strengthening to allow improved ability for patient to transfer to her wheel chair with increased I and ease. Electronic Signatures: Rachel Dee (SPTA) (Signed 11-Sep-2022 15:31) Authored: Vision/Cognition, Info, Mobility/Tone, Motor, Outcomes Tools Constance Draper (ARABIC LINGUIST) (Signed 11-Sep-2022 15:56) Authored: Info, Mobility/Tone, Motor, Sensory, Outcomes Tools, Outcome Summary Valery Christy (PT) (Signed 11-Sep-2022 16:41) Co-Signer: Info, Mobility/Tone, Motor, Sensory, Outcomes Tools, Outcome Summary Last Updated: 11-Sep-2022 16:41 by Valery Christy (PT) Normal [facility] VAS LAB Venous Duplex Ultra sound DVTon 09-11-2022 [facility] Venous [place] [address] [phone], Vascular Lab Report Lower Venous Duplex Ultrasound Patient Name: DARYN Valero Physician: [id number] Don Rico MD Study Date: 09/11/2022 Referring Physician: CHIDI SCHULZ MRN/PID: [id number] PCP: Accession/Order#: [id number] CC Report to: Date of : 1945 Technologist: Cristal Iyer RVT Gender: F Technologist 2: Admission Status: Inpatient Location Performed: [facility] Diagnosis/ICD: R60.0-Localized (leg) edema; M79.89-Left leg swelling; M79.605-Pain in left leg Procedure/CPT: 24476 Peripheral venous duplex scan for DVT complete-[id number] CONCLUSIONS: Right Lower Venous: No evidence of acute deep vein thrombus visualized in the right lower extremity. Left Lower Venous: No evidence of acute deep vein thrombus visualized in the left lower extremity. Imaging \EANDE\ Doppler Findings: Right Compress Thrombus SFJ Yes None Left Compress Thrombus SFJ Yes None Right Compressible Thrombus Flow Distal External Iliac Yes None CFV Yes None Spontaneous/Phasic PFV Yes None FV Proximal Yes None Spontaneous/Phasic FV Mid Yes None FV Distal Yes None Popliteal Yes None Spontaneous/Phasic Peroneal Yes None PTV Yes None Left Compress Thrombus Flow Distal External Iliac Yes None CFV Yes None Spontaneous/Phasic PFV Yes None FV Proximal Yes None Spontaneous/Phasic FV Mid Yes None FV Distal Yes None Popliteal Yes None Spontaneous/Phasic Peroneal Yes None PTV Yes None [id number] Don Rico MD Final Normal [facility] BASIC METABOLIC PANELon 06-0 Anion gap [Moles/Vol] 10 mmol/L Normal 10 - 20 [facility] Comment on above: Performed By: #### B MP #### [address] [address] Calcium [Mass/Vol] 8.4 mg/dL Low 8.6 - 10.3 [facility] Comment on above: Performed By: #### B MP #### [address] [address] Chloride [Moles/Vol] 97 mmol/L Low 98 - 107 [facility] Comment on above: Performed By: #### B MP #### [address] [address] Creatinine [Mass/Vol] 0.82 mg/dL Normal 0.50 - 1.05 [facility] Comment on above: Performed By: #### B MP #### [address] [address] GFR/1.73 sq M.predicted among non-blacks MDRD (S/P/Bld) [Vol rate/Area] 75 mL/min/{1.73_m2} Normal >90 [facility] Comment on above: Result Comment: CALC ULATIONS OF ESTIMATED GFR ARE PERFORMED USING THE 2020 CKD-EPI STUDY REFIT EQUATION WITHOUT THE RACE VARIABLE FOR THE IDMS-TRACEABLE CREATININE METHODS. https://jasn.asnjournals.org/content//ASN.61089 23804 Performed By: #### B MP #### [address] [address] Glucose [Mass/Vol] 152 mg/dL High 74 - 99 [facility] Comment on above: Performed By: #### B MP #### [address] [address] HCO3 (Bld) [Moles/Vol] 28 mmol/L Normal 21 - 32 [facility] Comment on above: Performed By: #### B MP #### [address] [address] Potassium [Moles/Vol] 3.6 mmol/L Normal 3.5 - 5.3 [facility] Comment on above: Performed By: #### B MP #### [address] [address] Sodium [Moles/Vol] 131 mmol/L Low 136 - 145 [facility] Comment on above: Performed By: #### B MP #### [address] [address] Urea nitrogen [Mass/Vol] 17 mg/dL Normal 6 - 23 [facility] Comment on above: Performed By: #### B MP #### [address] [address] CBC AND DIFFERENTIALon 09-10 % AUTOMATED IMMATURE GRAN 0.6 % Normal 0.0 - 0.9 [facility] Comment on above: Result Comment: Martina ture Granulocyte Count (IG) includes promyelocytes, myelocytes and metamyelocytes but does not include bands. Percent differential counts (%) should be interpreted in the context of the absolute cell counts (cells/L). Performed By: #### C BCDF ####[address] [address] Basophils (Bld) [#/Vol] 0.06 10*3/uL Normal 0.00 - 0.10 [facility] Comment on above: Performed By: #### C BCDF ####[address] [address] Basophils/100 WBC (Bld) 0.5 % Normal 0.0 - 2.0 [facility] Comment on above: Performed By: #### C BCDF ####[address] [address] Eosinophils (Bld) [#/Vol] 0.28 10*3/uL Normal 0.00 - 0.40 [facility] Comment on above: Performed By: #### C BCDF ####[address] [address] Eosinophils/100 WBC (Bld) 2.3 % Normal 0.0 - 6.0 [facility] Comment on above: Performed By: #### C BCDF ####[address] [address] Erythrocyte distribution width (RBC) [Ratio] 17.2 % High 11.5 - 14.5 [facility] Comment on above: Performed By: #### C BCDF ####[address] [address] Hematocrit (Bld) [Volume fraction] 26.4 % Low 36.0 - 46.0 [facility] Comment on above: Performed By: #### C BCDF ####[address] [address] Hemoglobin (Bld) [Mass/Vol] 7.8 g/dL Low 12.0 - 16.0 [facility] Comment on above: Performed By: #### C BCDF ####[address] [address] Lymphocytes (Bld) [#/Vol] 2.19 10*3/uL Normal 0.80 - 3.00 [facility] Comment on above: Performed By: #### C BCDF ####[address] [address] Lymphocytes/100 WBC (Bld) 17.6 % Normal 13.0 - 44.0 [facility] Comment on above: Performed By: #### C BCDF ####[address] [address] MCHC (RBC) [Mass/Vol] 29.5 g/dL Low 32.0 - 36.0 [facility] Comment on above: Performed By: #### C BCDF ####[address] [address] MCV (RBC) [Entitic vol] 70 fL Low 80 - 100 [facility] Comment on above: Performed By: #### C BCDF ####[address] [address] Monocytes (Bld) [#/Vol] 1.19 10*3/uL High 0.05 - 0.80 [facility] Comment on above: Performed By: #### C BCDF ####[address] [address] Monocytes/100 WBC (Bld) 9.6 % Normal 2.0 - 10.0 [facility] Comment on above: Performed By: #### C BCDF ####[address] [address] Neutrophils (Bld) [#/Vol] 8.64 10*3/uL High 1.60 - 5.50 [facility] Comment on above: Result Comment: Perc ent differential counts (%) should be interpreted in the context of the absolute cell counts (cells/L). Performed By: #### C BCDF ####[address] [address] Neutrophils/100 WBC (Bld) 69.4 % Normal 40.0 - 80.0 [facility] Comment on above: Performed By: #### C BCDF ####[address] [address] Platelets (Bld) [#/Vol] 225 10*3/uL Normal 150 - 450 [facility] Comment on above: Performed By: #### C BCDF ####[address] [address] RBC 3.78 x10E12/L Low 4.00 - 5.20 [facility] Comment on above: Performed By: #### C BCDF ####[address] [address] WBC (Bld) [#/Vol] 12.4 10*3/uL High 4.4 - 11.3 [facility] Comment on above: Performed By: #### C BCDF ####[address] [address] Daily Progress Note-General Internal Medicineon 09-10-2022 Daily Progress Note-General Internal Medicine Service: General Internal Medicine Subjective Data: DARYN SHAH is a 76 year old Female who is Hospital Day # 3. Overnight Events: Patient had an uneventful night. Additional Information: Patient seen and examined at bedside. She feels fine. She complains of left thigh swelling and inflammation. She sounds better with vancomycin Objective Data: Objective Information: T PRBPMAPSpO2 [id number]/7497% Date/Time09/10 7: 7: 7: 7: 7:50 Range(36.1C - 37.1C ) (58 - 94 ) (18 - 19 ) (101 - 117 )/ (57 - 74 ) (97% - 98% ) Highest temp of 37.1 C was recorded at 09/09 15:27 Pain reported at 09/10 9:30: 0 = None ---- Intake and Output ----- Mn/Dy/Year TimeIntakeOutCritical access hospital Sep 10, 2022 6:00 [id number] Sep 09, 2022 10:00 [id number] Sep 09, 2022 2:00 [id number] The Intake and Output Totals for the last 24 hours are: [facility] [id number] Physical Exam by System: Constitutional: Well developed, obese , awake/alert/oriented x3, no distress, alert and cooperative Eyes: PERRL, EOMI, clear sclera Head/Neck: Neck supple, no apparent injury, thyroid without mass or tenderness, No JVD, trachea midline, no bruits Respiratory/Thorax: Patent airways, CTAB, normal breath sounds with good chest expansion, thorax symmetric Cardiovascular: Regular, rate and rhythm, no murmurs, 2+ equal pulses of the extremities, normal S 1and S 2 Gastrointestinal: Nondistended, soft, non-tender, no rebound tenderness or guarding, no masses palpable, no organomegaly, +BS, no bruits Musculoskeletal: Left thigh cellulitis. Area marked, warm to touch Neurological: alert and oriented x3, intact senses, motor, response and reflexes, normal strength Psychological: Appropriate mood and behavior Skin: No areas of skin bilateral leg areas Medication: Medications: Continuous Medications -------- No continuous medications are active Scheduled Medications -------- 1. Atenolol: 50 mg Oral 2 Times a Day 2. Atorvastatin: 40 mg Oral Daily 3. cefTRIAXone 1 gram/ Dextrose 5% IVPB Premixed Soln 50 mL: 50 mL IntraVenous Piggyback Every 24 Hours 4. Famotidine: 20 mg Oral 2 Times a Day 5. Insulin Lispro Moderate Corrective Scale: unit(s) SubCutaneous 3 Times a Day Before Meals 6. Lisinopril: 5 mg Oral Daily 7. LORazepam: 1 mg Oral At Bedtime 8. Potassium Chloride Extended Release: 10 mEq Oral Daily 9. Triamterene 37.5 mg- hydroCHLOROthiazide 25 mg - PEDS: 1 tablet(s) Oral Daily 10. Vancomycin - RPh to Dose - IV Piggy Back: 1 each As Specified Variable 11. Vancomycin IV Piggy Back: 1500 mg IntraVenous Piggyback Every 24 Hours 12. Venlafaxine Extended Release: 75 mg Oral Daily PRN Medications -------- 1. Acetaminophen: 650 mg Oral Every 4 Hours 2. Dextrose 50% in Water Injectable: 25 gram(s) IntraVenous Push Every 15 Minutes 3. Glucagon Injectable: 1 mg IntraMuscular Every 15 Minutes 4. Ondansetron Injectable: 4 mg IntraVenous Push Every 4 Hours 5. Sodium Chloride 0.9% Injectable Flush: 10 mL IntraVenous Flush Every 8 Hours and as Needed Currently Suspended Medications -------- 1. Rivaroxaban: 20 mg Oral Daily 1800 Recent Lab Results: Results: CBC: 09/10/2022 05:09 \ Hgb / \ 7.8 L / WBC Plt 12.4 H 225 / Hct \ / 26.4 L \ RBC: 3.78 L MCV: 70 L Neutrophil %: 69.4 BMP: 09/10/2022 05:08 NA+ Cl- BUN / 131 L 97 L 17 / -------- Glucose --- 152 H K+ HCO3- Creat \ 3.6 28 0.82 \ Calcium : 8.4 L Anion Gap : 10 Coagulation: 09/10/2022 05:08 PT / 16.8 H / -------< INR < 1.4 H PTT\ \ Radiology Results: Results: Impression: 1. No evidence of acute cardiopulmonary process. 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 A nodule at this level suspected on the ultrasound of 12/07/2021 was not seen on a three-phase CT of 01/04/2022. As a precaution, six-month follow-up renal ultrasound is recommended. Ultrasound Renal Bilateral [Sep 08 2022 7:18PM] Assessment and Plan: Code Status: Code StatusFull Code Advance Care Planning: Advance Care Planning: I evaluated the patient and determined the patient's capacity to understand the risks, benefits and alternatives to treatment. I elicited the patient's goals for treatment and reviewed advance directives and medical orders for life sustaining treatment. The patient was given an opportunity to review a blank advance directive as appropriate. Assessment: 76-year-old female with past medical history (more content not included)... Normal [facility] EMR ADDONon 09-10-2022 ADDON CONFIRMATION REQUEST REC'D Normal [facility] Comment on above: Performed By: #### U ARFX #### [address] [address] GLUCOSE-POCTon 09-10-2022 Glucose [Mass/Vol] 160 mg/dL High 74 - 99 [facility] Comment on above: Performed By: #### U ARFX #### [address] [address] Glucose [Mass/Vol] 171 mg/dL High 74 - 99 [facility] Comment on above: Performed By: #### G ROLLY #### [address] [address] Glucose [Mass/Vol] 163 mg/dL High 74 - 99 [facility] Comment on above: Performed By: #### G ROLLY #### [address] [address] Glucose [Mass/Vol] 147 mg/dL High 74 - 99 [facility] Comment on above: Performed By: #### U ARFX #### [address] [address] MAGNESIUMon 09-10-2022 Magnesium [Mass/Vol] 1.80 mg/dL Normal 1.60 - 2.40 [facility] Comment on above: Performed By: #### U ARFX #### [address] [address] PT/INRon 09-10-2022 PT Coag (PPP) [Time] 16.8 s High 9.8 - 13.4 [facility] Comment on above: Performed By: #### P TINR ####[address] [address] PT, INR 1.4 High 0.9 - 1.1 [facility] Comment on above: Performed By: #### P TINR ####[address] [address] Rehab Note-individual therap yon 09-10-2022 Rehab Note-individual therapy Rehab: Info: Disciplinephysical physical therapy professor Mode of Treatmentindividual therapy Time IN11:07 Time OUT11:26 Total Treatment [id number] Patient in ... at end of sessionbed, 2 railings up; alarm off; not on at start of visit Communicated with ... at end of sessionbedside nurse Patient Effortadequate Patient Response to TreatmentPatient states that she has cellulitis on her LLE stating that's new from yesterday and states that she's not sure what she will be able to do during treatment. Line and TubesIV Vision/Cognition: Affect/Mental Status (Cognitive)WFL Orientation Status (Cognition)oriented x 3 Mobility/Tone: Bed Mobility Assessment/Interventions supine to sit [id number] [place] (Bed Mobility)supervision Assistive Device (Bed Mobility)bed rails Comment, Bed MobilityHOB elevated Safety Issues Impacting Function (Mobility)ability to follow commands Impairments Impacting Function (Mobility)endurance/acti vity tolerance; strength Motor: Lower Extremity (Therapeutic Exercise)Patient able to complete seated LE exercises Bilat x15: ankle pumps, LAQ's, marches, hip abduction Sensory: Comment, Pre/Post Treatment PainPatient voices concerns about possibly bearing weight on LLE d/t cellulitis this date. Outcomes Tools: Turning from your back to your side while in a flat bed without using bedrails a little Moving from lying on your back to sitting on the side of a flat bed without using bedrailsa little Moving to and from bed to chair (including a wheelchair)total Standing up from a chair using your arms (e.g. wheelchair or bedside chair) total To walk in hospital roomtotal Climbing 3-5 steps with railingtotal AM-PAC (PT) Total Score10 Outcome Summary: Progress: Physical Therapyprogress toward functional goals is gradual Outcome Summary: Physical TherapyPatient able to tolerate seated exercises only this date. Spoke with patient about possibly standing with patient voicing concerns with cellulitis on LLE. Patient seated at EOB at end of session with call light and all needs met. Spoke with UZMA Pruett at end of session about patient sitting at EOB with RN voicing that it was ok. Will continue to work on progressing with POC as tolerated. Electronic Signatures: Ladi Vasquez) (Signed 10-Sep-2022 11:45) Authored: Info, Vision/Cognition, Mobility/Tone, Motor, Sensory, Outcomes Tools, Outcome Summary Cameron Perkins (PT) (Signed 10-Sep-2022 13:51) Co-Signer: Info, Vision/Cognition, Mobility/Tone, Motor, Sensory, Outcomes Tools, Outcome Summary Last Updated: 10-Sep-2022 13:51 by Cameron Perkins (PT) [facility] URINALYSIS WITH CULTURE IF I NDICATEDon 09-10-2022 Appearance (U) Canceled [facility] Comment on above: Order Comment: TEST URINALYSIS WITH CULTURE IF INDICATED WAS CANCELLED, 09/10/2022 17:38 NSR. Performed By: #### G ROLLY #### [place] [address] ASCORBIC ACID Canceled [facility] Comment on above: Order Comment: TEST URINALYSIS WITH CULTURE IF INDICATED WAS CANCELLED, 09/10/2022 17:38 NSR. Result Comment: Conc entrations > = 20 mg/dL of ascorbic acid can be expected to cause strong interference in the reactions testing for glucose, nitrite and blood. It is recommended to discontinue Vitamin C administration and retest in 10 hours. Performed By: #### G ROLLY #### [address] [address] Bilirubin Ql (U) Canceled [facility] Comment on above: Order Comment: TEST URINALYSIS WITH CULTURE IF INDICATED WAS CANCELLED, 09/10/2022 17:38 NSR. Performed By: #### G ROLLY #### [address] [address] Color (U) Canceled [facility] Comment on above: Order Comment: TEST URINALYSIS WITH CULTURE IF INDICATED WAS CANCELLED, 09/10/2022 17:38 NSR. Performed By: #### G ROLLY #### [address] [address] Glucose Ql (U) Canceled [facility] Comment on above: Order Comment: TEST URINALYSIS WITH CULTURE IF INDICATED WAS CANCELLED, 09/10/2022 17:38 NSR. Performed By: #### G ROLLY #### [address] [address] Hemoglobin Ql (U) Canceled [facility] Comment on above: Order Comment: TEST URINALYSIS WITH CULTURE IF INDICATED WAS CANCELLED, 09/10/2022 17:38 NSR. Performed By: #### G ROLLY #### [address] [address] Ketones Ql (U) Canceled [facility] Comment on above: Order Comment: TEST URINALYSIS WITH CULTURE IF INDICATED WAS CANCELLED, 09/10/2022 17:38 NSR. Performed By: #### G ROLLY #### [address] [address] Leukocyte esterase Test strip Ql (U) Canceled [facility] Comment on above: Order Comment: TEST URINALYSIS WITH CULTURE IF INDICATED WAS CANCELLED, 09/10/2022 17:38 NSR. Performed By: #### G ROLLY #### [address] [address] Nitrite Ql (U) Canceled [facility] Comment on above: Order Comment: TEST URINALYSIS WITH CULTURE IF INDICATED WAS CANCELLED, 09/10/2022 17:38 NSR. Performed By: #### G ROLLY #### [address] [address] pH Canceled [facility] Comment on above: Order Comment: TEST URINALYSIS WITH CULTURE IF INDICATED WAS CANCELLED, 09/10/2022 17:38 NSR. Performed By: #### G ROLLY #### [address] [address] Protein Ql (U) Canceled [facility] Comment on above: Order Comment: TEST URINALYSIS WITH CULTURE IF INDICATED WAS CANCELLED, 09/10/2022 17:38 NSR. Performed By: #### G ROLLY #### [address] [address] Specific gravity (U) [Rel density] Canceled Normal [facility] Comment on above: Order Comment: TEST URINALYSIS WITH CULTURE IF INDICATED WAS CANCELLED, 09/10/2022 17:38 NSR. Performed By: #### G ROLLY #### [address] [address] UROBILINOGEN Canceled Normal [facility] Comment on above: Order Comment: TEST URINALYSIS WITH CULTURE IF INDICATED WAS CANCELLED, 09/10/2022 17:38 NSR. Performed By: #### G ROLLY #### [address] [address] VANCOMYCINon 09-10-2022 VANCOMYCIN 10.3 ug/mL Normal [facility] Comment on above: Result Comment: .The rapeutic Ranges: Peak: All ages: 30.0-40.0 ug/mL . Trough: Age <18y: 5.0-10.0 ug/mL . Age >/= 18y: 5.0-20.0 ug/mL . Vancomycin trough concentrations drawn immediately prior to the next dose at steady-state are preferred for monitoring patients treated with vancomycin. Ref.: Am J Health-Syst Pharm 66: 83-98, 2008. Performed By: #### C BCDF #### [address] [address] BNPon 09-09-2022 Natriuretic peptide B (Bld) [Mass/Vol] 296 pg/mL High 0 - 99 [facility] Comment on above: Result Comment: . <1 00 pg/mL - Heart failure unlikely 100-299 pg/mL - Intermediate probability of acute heart . failure exacerbation. Correlate with clinical . context and patient history. >=300 pg/mL - Heart Failure likely. Correlate with clinical . context and patient history. BNP testing is performed using different testing methodology at [facility] than at other [facility] hospitals. Direct result comparisons should only be made within the same method. Performed By: #### C BCDF #### [address] [address] C-REACTIVE PROTEINon 023 C-REACTIVE PROTEIN 29.42 mg/dL Abnormal [facility] Comment on above: Result Comment: REF VALUE < 1.00 Performed By: #### C RP ####[address] [address] CBC AND DIFFERENTIALon 09-09 % AUTOMATED IMMATURE GRAN 0.4 % Normal 0.0 - 0.9 [facility] Comment on above: Result Comment: Martina ture Granulocyte Count (IG) includes promyelocytes, myelocytes and metamyelocytes but does not include bands. Percent differential counts (%) should be interpreted in the context of the absolute cell counts (cells/L). Performed By: #### C BCDF #### [place] [id number] Basophils (Bld) [#/Vol] 0.02 10*3/uL Normal 0.00 - 0.10 [facility] Comment on above: Performed By: #### C BCDF #### [place] [id number] Basophils/100 WBC (Bld) 0.1 % Normal 0.0 - 2.0 [facility] Comment on above: Performed By: #### C BCDF #### [place] [id number] Eosinophils (Bld) [#/Vol] 0.09 10*3/uL Normal 0.00 - 0.40 [facility] Comment on above: Performed By: #### C BCDF #### [address] [address] Eosinophils/100 WBC (Bld) 0.7 % Normal 0.0 - 6.0 [facility] Comment on above: Performed By: #### C BCDF #### [address] [address] Erythrocyte distribution width (RBC) [Ratio] 17.2 % High 11.5 - 14.5 [facility] Comment on above: Performed By: #### C BCDF #### [address] [address] Hematocrit (Bld) [Volume fraction] 30.6 % Low 36.0 - 46.0 [facility] Comment on above: Performed By: #### C BCDF #### [address] [address] Hemoglobin (Bld) [Mass/Vol] 8.6 g/dL Low 12.0 - 16.0 [facility] Comment on above: Performed By: #### C BCDF #### [address] [address] Lymphocytes (Bld) [#/Vol] 1.78 10*3/uL Normal 0.80 - 3.00 [facility] Comment on above: Performed By: #### C BCDF #### [address] [address] Lymphocytes/100 WBC (Bld) 12.9 % Normal 13.0 - 44.0 [facility] Comment on above: Performed By: #### C BCDF #### [address] [address] MCHC (RBC) [Mass/Vol] 28.1 g/dL Low 32.0 - 36.0 [facility] Comment on above: Performed By: #### C BCDF #### [address] [address] MCV (RBC) [Entitic vol] 71 fL Low 80 - 100 [facility] Comment on above: Performed By: #### C BCDF #### [address] [address] Monocytes (Bld) [#/Vol] 1.27 10*3/uL High 0.05 - 0.80 [facility] Comment on above: Performed By: #### C BCDF #### [address] [address] Monocytes/100 WBC (Bld) 9.2 % Normal 2.0 - 10.0 [facility] Comment on above: Performed By: #### C BCDF #### [address] [address] Neutrophils (Bld) [#/Vol] 10.61 10*3/uL High 1.60 - 5.50 [facility] Comment on above: Result Comment: Perc ent differential counts (%) should be interpreted in the context of the absolute cell counts (cells/L). Performed By: #### C BCDF #### [address] [address] Neutrophils/100 WBC (Bld) 76.7 % Normal 40.0 - 80.0 [facility] Comment on above: Performed By: #### C BCDF #### [address] [address] Platelets (Bld) [#/Vol] 224 10*3/uL Normal 150 - 450 [facility] Comment on above: Performed By: #### C BCDF #### [address] [address] RBC 4.33 x10E12/L Normal 4.00 - 5.20 [facility] Comment on above: Performed By: #### C BCDF #### [address] [address] WBC (Bld) [#/Vol] 13.8 10*3/uL High 4.4 - 11.3 [facility] Comment on above: Performed By: #### C BCDF #### [address] [address] COMPREHENSIVE PANELon 2022 Albumin [Mass/Vol] 3.4 g/dL Normal 3.4 - 5.0 [facility] Comment on above: Performed By: #### B MP #### [address] [address] ALP [Catalytic activity/Vol] 91 U/L Normal 33 - 136 [facility] Comment on above: Performed By: #### B MP #### [address] [address] ALT [Catalytic activity/Vol] 7 U/L Normal 7 - 45 [facility] Comment on above: Result Comment: Madhavi ents treated with Sulfasalazine may generate falsely decreased results for ALT. Performed By: #### B MP #### [address] [address] Anion gap [Moles/Vol] 11 mmol/L Normal 10 - 20 [facility] Comment on above: Performed By: #### B MP #### [address] [address] AST [Catalytic activity/Vol] 15 U/L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 s High 26 - 39 [facility] Comment on above: Result Comment: THE APTT IS NO LONGER USED FOR MONITORING UNFRACTIONATED HEPARIN THERAPY. FOR MONITORING HEPARIN THERAPY, USE THE HEPARIN ASSAY. Performed By: #### A PTT ####[address] [address] Admission Risk Screen - Adul ton 09-08-2022 Admission Risk Screen - Adult Allergies: Allergies: No Known Allergies: Patient Verification: New W ID Band Applied in my Departmentno Type of ID Patient is WearingW wristband, but not applied here Patient Transferred from Other Facility ([facility], [facility],etc)no Patient Identity Verified Bypatient ID Band FULL Name, include Middle, spelling matches patient's ID used for verificationyes ID Band Matches Patient ID used for Verficationyes ID Band MRN Matches EMR MRNyes Visitor Restriction: Coronavirus Visitor Restriction: Reasonable restrictions to in-person visitors will be observed due to current coronavirus pandemic. Travel History: COVID-19 Screening Completedno exposure or symptoms(1) Travel or Exposure Past 30 DaysNO travel to International locations in the past 30 days Ebola AlertFor Ebola-like Symptoms: Isolate Patient and Notify Provider/Wire Galvanizer For Contact: Notify Provider/Wire Galvanizer Advance Directive: Advance Directive/DNRyes (2) Advance Directive typeLiving Will(2) Living Will AvailabilityLiving Will not available now Living Will [place] Fall Screen: History of falling (immediate or previous)no (0) Secondary Diagnosisyes (15) Intravenous Therapy/ Heparin/Saline Lockyes (20) Gait/Transferringweak (10) Ambulatory Aidsnone/bedrest/nurse assist (0) Mental Statusoriented to own ability (0) Score: Low risk (<25). Moderate risk (25-44). High risk (>44).45 [place] InterventionsHIGH INTERVENTIONS *Low and Moderate Interventions Plus: * supervised toileting at all times Family Violence Screen: Are you or have you been threatened or abused physically, emotionally, or sexually by anyoneno Do you feel UNSAFE going back to the place where you are livingno Clinical assessment: Are there any apparent signs of injuries/behaviors that could be related to abuse/neglectno Social Service Consult for abuse/neglect needed this visitno Functional Screen: Functional Screen: In the recent/past 2-4 weeks, patient or family have noticedno issues that require a speech/language consult at this time AM-PAC- Basic Mobility/Daily Activity: Patient baseline bedboundno is wheelchair bound Turning from your back to your side while in a flat bed without using bedrailsnone Moving from lying on your back to sitting on the side of a flat bed without using bedrailsnone Moving to and from bed to chair (including a wheelchair)a little Standing up from a chair using your arms (e.g. wheelchair or bedside chair)a little To walk in hospital roomunable to walk Climbing 3-5 steps with railingunable to walk Basic Mobility - Total Score14 Putting on and taking off regular lower body clothingnone Bathing (including washing, rinsing, drying)a little Putting on and taking off regular upper body clothingnone Toileting, which includes using toilet, bedpan or urinala little Taking care of personal grooming such as brushing teetha little Eating Mealsa little Daily Activity - Total Score20 Learning Assessment (Patient): Patient is Able to be Assessed for Learningyes Factors Influencing Readiness to Learnacuteness of illness Factors that Impact Ability to Learnvisual problems Devices/Methods Used to Communicatenone Learning Preferencesverbal instruction Cultural Considerationsnone Developmental Considerationsnone Cheondoism Considerationsnone Learning Assessment (Other Learner): Other learner availableno Depression Screen: During the past month, have you often been bothered by feeling down, depressed or hopelessno During the past month, have you often had little interest or pleasure in doing thingsno Have you had any thoughts of harming anyone elseno (1) [place] Suicide: Risk Screen Not Applicable/Able to Answerable to be screened In the Past Month: Have you wished you were or could go to sleep and not wake upno(1) In the Past Month: Have you had any actual thoughts of killing yourself no(1) Lifetime: Have you ever done, started to do, or prepared to do anything to end your lifeno [place] Suicide Risknegative Adult Nutrition Screen: Have you recently lost weight without tryingno Have you been eating poorly because of a decreased appetiteyes Malnutrition Screening Tool Score1 Malnutrition Screening Tool RiskMST = 0 or 1 Not at risk. Eating well with little or no weight loss Nutrition Consult needed this visitno Can Patient Participate in Room Serviceyes Patient requires Paper Dishes/Plastic Utensilsno Pain Screen: Pain Scalenumerical 0-10 Pain Scale Educationteaching provided Current Pain Level0 = None Acceptable Pain Level6 = Moderate Expression of Pain (nonverbal)none Chronic Painno Spiritual Screen: Are there any cultural, spiritual, tenriism practices/values/needs that are important for us to knowno Do you want a visit/item from Pastoral Careyes Is there any particular (more content not included)... Normal [facility] BLOOD CULTURE, BACTERIALon 0 09-08-2022 BLOOD CULTURE, BACTERIAL TEST BLOOD CULTURE, BACTERIAL WAS CANCELLED, 09/08/2022 17:15 duplicate order . PATIENT: DARYN SHAH LOCATION: [facility] [place] BILL#: [id number] : 49 AGE: SEX: F ORDERED BY: ANGELIQUE CLARKE SOURCE: Blood COLLECTED: ANTIBIOTICS AT CAREN.: RECEIVED : SITE: PERIPHERAL R E S U L T S BLOOD CULTURE, BACTERIAL CANCELLED 09/08/22 17:15 [facility] Comment on above: Performed By: #### C BCDF #### [place] [address] BLOOD CULTURE, BACTERIAL TEST BLOOD CULTURE, BACTERIAL WAS CANCELLED, 09/08/2022 17:15 duplicate order . PATIENT: DARYN SHAH LOCATION: [facility] [place] BILL#: [id number] : 49 AGE: SEX: F ORDERED BY: ANGELIQUE CLARKE SOURCE: Blood COLLECTED: ANTIBIOTICS AT CAREN.: RECEIVED : SITE: PERIPHERAL R E S U L T S BLOOD CULTURE, BACTERIAL CANCELLED 09/08/22 17:15 [facility] Comment on above: Performed By: #### C BCDF #### [place] [address] BLOOD CULTURE, BACTERIAL PATIENT: DARYN SHAH LOCATION: [address] BILL#: [id number] : 49 AGE: SEX: F ORDERED BY: VERA HUANG SOURCE: Blood COLLECTED: 09/08/22 13:02 ANTIBIOTICS AT CAREN.: RECEIVED : 09/08/22 18:36 SITE: Right AC R E S U L T S BLOOD CULTURE, BACTERIAL FINAL 09/12/22 19:42 No Growth at 1 days No Growth at 2 days No Growth at 3 days NO GROWTH at 4 days - FINAL REPORT [facility] Comment on above: Performed By: #### L ACT #### [address] [address] BLOOD CULTURE, BACTERIAL PATIENT: DARYN SHAH LOCATION: [facility] [place] Selina SUE#: [id number] : 49 AGE: SEX: F ORDERED BY: VERA HUANG SOURCE: Blood COLLECTED: 09/08/22 12:54 ANTIBIOTICS AT CAREN.: RECEIVED : 09/08/22 18:36 SITE: Iv draw site R E S U L T S BLOOD CULTURE, BACTERIAL FINAL 09/12/22 19:42 No Growth at 1 days No Growth at 2 days No Growth at 3 days NO GROWTH at 4 days - FINAL REPORT Normal [facility] Comment on above: Performed By: #### U ARFX #### [place] [id number] CBC AND DIFFERENTIALon 09-08 % AUTOMATED IMMATURE GRAN 0.7 % Normal 0.0 - 0.9 [facility] Comment on above: Result Comment: Martina ture Granulocyte Count (IG) includes promyelocytes, myelocytes and metamyelocytes but does not include bands. Percent differential counts (%) should be interpreted in the context of the absolute cell counts (cells/L). Performed By: #### G ROLLY #### [place] [id number] Basophils (Bld) [#/Vol] 0.03 10*3/uL Normal 0.00 - 0.10 [facility] Comment on above: Performed By: #### G ROLLY #### [address] [address] Basophils/100 WBC (Bld) 0.2 % Normal 0.0 - 2.0 [facility] Comment on above: Performed By: #### G ROLLY #### [address] [address] Erythrocyte distribution width (RBC) [Ratio] 17.0 % High 11.5 - 14.5 [facility] Comment on above: Performed By: #### G ROLLY #### [address] [place] [address] Hematocrit (Bld) [Volume fraction] 29.3 % Low 36.0 - 46.0 [facility] Comment on above: Performed By: #### Demetrio WATKINSO #### [address] [address] Hemoglobin (Bld) [Mass/Vol] 8.6 g/dL Low 12.0 - 16.0 [facility] Comment on above: Performed By: #### Demetrio WATKINSO #### [address] [address] Lymphocytes (Bld) [#/Vol] 1.11 10*3/uL Normal 0.80 - 3.00 [facility] Comment on above: Performed By: #### Demetrio WATKINSO #### [address] [address] Lymphocytes/100 WBC (Bld) 6.1 % Normal 13.0 - 44.0 [facility] Comment on above: Performed By: #### Demetrio WATKINSO #### [address] [address] MCHC (RBC) [Mass/Vol] 29.4 g/dL Low 32.0 - 36.0 [facility] Comment on above: Performed By: #### Demetrio WATKINSO #### [address] [address] MCV (RBC) [Entitic vol] 70 fL Low 80 - 100 [facility] Comment on above: Performed By: #### Demetrio ROLLY #### [address] [address] Monocytes (Bld) [#/Vol] 1.40 10*3/uL High 0.05 - 0.80 [facility] Comment on above: Performed By: #### Demetrio ROLLY #### [address] [address] Monocytes/100 WBC (Bld) 7.7 % Normal 2.0 - 10.0 [facility] Comment on above: Performed By: #### Demetrio WATKINSO #### [address] [address] Neutrophils (Bld) [#/Vol] 15.46 10*3/uL High 1.60 - 5.50 [facility] Comment on above: Result Comment: Perc ent differential counts (%) should be interpreted in the context of the absolute cell counts (cells/L). Performed By: #### G ROLLY #### [address] [address] Neutrophils/100 WBC (Bld) 85.3 % Normal 40.0 - 80.0 [facility] Comment on above: Performed By: #### G ROLLY #### [address] [address] Platelets (Bld) [#/Vol] 210 10*3/uL Normal 150 - 450 [facility] Comment on above: Performed By: #### G ROLLY #### [address] [address] RBC 4.20 x10E12/L Normal 4.00 - 5.20 [facility] Comment on above: Performed By: #### G ROLLY #### [address] [address] WBC (Bld) [#/Vol] 18.1 10*3/uL High 4.4 - 11.3 [facility] Comment on above: Performed By: #### G ROLLY #### [address] [address] CHEST 1 VIEWon 09-08-2022 CHEST 1 VIEW Patient Name: DARYN SHAH STUDY: CHEST 1 VIEW; 09/08/2022 12:59 pm INDICATION: fever . COMPARISON: None. ACCESSION NUMBER(S): [id number] ORDERING CLINICIAN: VERA HUANG FINDINGS: CARDIOMEDIASTINAL SILHOUETTE: The cardiac silhouette is enlarged. There is no venous congestion. LUNGS: No definite airspace infiltrate. ABDOMEN: No remarkable upper abdominal findings. BONES: No acute osseous changes. IMPRESSION: 1. No evidence of acute cardiopulmonary process. See discussion above Electronically signed by: ARSEN PERALES MD Normal [facility] COMPREHENSIVE PANELon 2022 Anion gap [Moles/Vol] 13 mmol/L Normal 10 - 20 [facility] Comment on above: Performed By: #### C BCDF #### [address] [address] Sodium [Moles/Vol] 129 mmol/L Low 136 - 145 [facility] Comment on above: Result Comment: Conf irmed by repeat analysis Performed By: #### C BCDF #### [address] [address] Albumin [Mass/Vol] 3.6 g/dL Normal 3.4 - 5.0 [facility] Comment on above: Performed By: #### C BCDF #### [address] [address] ALP [Catalytic activity/Vol] 92 U/L Normal 33 - 136 [facility] Comment on above: Performed By: #### C BCDF #### [address] [address] ALT [Catalytic activity/Vol] 8 U/L Normal 7 - 45 [facility] Comment on above: Result Comment: Madhavi ents treated with Sulfasalazine may generate falsely decreased results for ALT. Performed By: #### C BCDF #### [address] [address] AST [Catalytic activity/Vol] 16 U/L Normal 9 - 39 [facility] Comment on above: Performed By: #### C BCDF #### [address] [address] Bilirubin [Mass/Vol] 0.6 mg/dL Normal 0.0 - 1.2 [facility] Comment on above: Performed By: #### C BCDF #### [address] [address] Calcium [Mass/Vol] 8.8 mg/dL Normal 8.6 - 10.3 [facility] Comment on above: Performed By: #### C BCDF #### [address] [address] Chloride [Moles/Vol] 93 mmol/L Low 98 - 107 [facility] Comment on above: Performed By: #### C BCDF #### [address] [address] Creatinine [Mass/Vol] 1.00 mg/dL Normal 0.50 - 1.05 [facility] Comment on above: Performed By: #### C BCDF #### [address] [address] GFR/1.73 sq M.predicted among non-blacks MDRD (S/P/Bld) [Vol rate/Area] 59 mL/min/{1.73_m2} Abnormal >90 [facility] Comment on above: Result Comment: CALC ULATIONS OF ESTIMATED GFR ARE PERFORMED USING THE 2020 CKD-EPI STUDY REFIT EQUATION WITHOUT THE RACE VARIABLE FOR THE IDMS-TRACEABLE CREATININE METHODS. https://jasn.asnjournals.org/content/early//ASN.31702 19343 Performed By: #### C BCDF #### [address] [address] Glucose [Mass/Vol] 170 mg/dL High 74 - 99 [facility] Comment on above: Performed By: #### C BCDF #### [address] [address] HCO3 (Bld) [Moles/Vol] 27 mmol/L Normal 21 - 32 [facility] Comment on above: Performed By: #### C BCDF #### [address] [address] Potassium [Moles/Vol] 3.8 mmol/L Normal 3.5 - 5.3 [facility] Comment on above: Performed By: #### C BCDF #### [address] [address] Protein [Mass/Vol] 6.7 g/dL Normal 6.4 - 8.2 [facility] Comment on above: Performed By: #### C BCDF #### [address] [address] Urea nitrogen [Mass/Vol] 20 mg/dL Normal 6 - 23 [facility] Comment on above: Performed By: #### C BCDF #### [place] [address] CORONAVIRUS 2019 BY PCRon Lab Specimen Source Nasal, Nasopharyngeal Normal [facility] Comment on above: Performed By: #### C OV19 #### [place] [address] SARS-CoV-2 (COVID-19) RNA SEFERINO+probe Ql (Unsp spec) Not detected Normal Not Detected [facility] Comment on above: Result Comment: . This test has received FDA Emergency Use Authorization (EUA) and has been verified by [facility]. This test is only authorized for the duration of time that circumstances exist to justify the authorization of the emergency use of in vitro diagnostic tests for the detection of SARS-CoV-2 virus and/or diagnosis of COVID-19 infection under section 564(b)(1) of the Act, 21 U.S.C. 360bbb-3(b)(1), unless the authorization is terminated or revoked sooner. [facility] is certified under CLIA-88 as qualified to perform high complexity testing. Testing is performed in the [facility] laboratory located at [address] [place] [address]. SARS-CoV-2/Flu/RSV Multiplex Test: Fact sheet for providers: https://www.fda.gov/media/814515/download Fact sheet for patients: https://www.fda.gov/media/221758/download Performed By: #### C OV19 #### [place] [address] Covid 19 Resultson 3 SARS-CoV-2 (COVID-19) RNA SEFERINO+probe Ql (Unsp spec) NEGATIVE COVID-19 Test Coronaviruses are common world-wide and are the cause of many common colds. SARS-COV2 is a new coronavirus that began circulating worldwide in 2019 so we are calling it COVID-19. It has been estimated that four out of five patients with COVID-19 will recover at home without the need for medical attention. Symptoms of COVID-19 may include cough, fever, shortness of breath, loss of taste or smell and other flu-like symptoms including chills, sore muscles, sore throat, and headache. Severe illness is more common in older people and people with other health problems such as high blood pressure, obesity, and immune system problems. If the test is positive, you have COVID-19. You will be contacted by the ordering physicians office and instructed to remain on home isolation, in accordance with CDC guidelines. You may also be contacted by the [facility] to see if any of your close contacts may have been exposed to the virus and need to quarantine. If the test is negative, you likely do not have COVID-19 at this time, but you still may have a different illness that can spread to other people (like Influenza, or the Flu) and could still be at risk for getting COVID-19. We recommend that you stay away from other people to limit the spread of illness until your symptoms are improving and you are fever-free for 24 hours without the use of fever lowering medications such as acetaminophen or ibuprofen. No test is 100% accurate so if you are still concerned you may have COVID-19, talk to your doctor about the need to continue to stay away from others. Medicines Unless your provider told you not to use the following: Acetaminophen (Tylenol and others) is generally safe. Anti-inflammatory medications, such as Ibuprofen (Advil or Motrin) or Naproxen (Aleve) can also be used. Layq-ixo-qsbugzu cough and cold medicines can be used according to the instructions on the package. Some hvfn-lfo-ivnxjca medicines also contain acetaminophen. Make sure you are not taking more than your recommended dose. For those not hospitalized, there is no specific treatment available for this illness. Antibiotics do not treat Coronaviruses. Follow-Up Follow up with your doctor by scheduling a virtual visit or consider follow-up at one of our urgent care fever clinics. If you are having difficulty breathing, or are very weak and having difficulty standing, this is a medical emergency. Call 911 or have someone take you to the nearest emergency room immediately. If possible, wear a facemask. Additional guidance from the CDC for patients who tested POSITIVE for COVID-19 How to isolate: Isolate yourself in a specific room at home and limit your contact with others. Use a separate bathroom from other members of the household, when possible. Leave home only to get essential medical care. Do not go to work, school or public areas. Avoid using public transportation, ride-sharing, or taxis. Restrict contact with pets and other animals. If you must care for your pet or be around animals while you are sick, wash your hands before and after your interaction and wear a facemask. Make sure that shared spaces in the home have good airflow, such as by an air conditioner or an opened window, weather permitting. Personal Hygiene Procedures: Wear a face mask when in the same room as other people or pets. If a face mask interferes with your breathing, others should wear a mask when sharing space with you. Frequent hand-washing: wash your hands with soap and water for at least 20 seconds. If soap and water are not available, use alcohol-based hand review trainer. Avoid touching your eyes, nose, and mouth with unwashed hands. Household Hygiene Procedures: Avoid sharing personal household items such as dishes, glassware, cups, eating utensils, towels or bedding with other people or pets in your home. After use, these items should be washed with soap and hot water. Disinfect all high-touch surfaces every day with antibacterial cleaning solutions such as Lysol wipes, bleach, cleansers, etc. High-touch surfaces include tabletops, doorknobs, bathroom fixtures, toilets, phones, keyboards, tablets and bedside tables. Immediately clean any surfaces that may have blood, poop or body fluids on them, using antibacterial cleaning solutions such as Lysol wipes, bleach, cleansers, etc. If clothing or bedding come into contact with blood, poop or body fluids, they should be washed immediately. Follow the directions on the laundry detergent and clothing labels but hot water is recommended when possible. Stopping home isolation precautions: If possible, consult your doctor before stopping home isolation precautions. According to the CDC, you can discontinue home isolation precautions when you have met both of these criteria: Your fever and respiratory symptoms have been gone for 24 rai (more content not included)... Normal [facility] GLUCOSE-POCTon 09-08-2022 Glucose [Mass/Vol] 177 mg/dL High 74 - 99 [facility] Comment on above: Performed By: #### G ROLLY ####[place] [address] LACTATEon 09-08-2022 LACTATE Canceled Normal [facility] Comment on above: Order Comment: TEST LACTATE WAS CANCELLED, 09/08/2022 17:31 result was normal, does not needrepeated . Result Comment: Loly puncture immediately after or during the administration of Metamizole may lead to falsely low results. Testing should be performed immediately prior to Metamizole dosing. Performed By: #### C OV19 #### [address] [address] Lactate [Moles/Vol] 1.4 mmol/L Normal 0.4 - 2.0 [facility] Comment on above: Result Comment: Loly puncture immediately after or during the administration of Metamizole may lead to falsely low results. Testing should be performed immediately prior to Metamizole dosing. Performed By: #### L ACT #### [address] [address] Order Reconciliationon 09-08 Order Reconciliation Page 1 Admission Reconciliation Document Reconciliation Type: Admission requested on behalf of Angelique Clarke (Physician) done by Angelique Clarke) Admission - Reconciliation: 08-Sep-2022 17:31 by: Angelique Clarke) Home MedicationsEnteredLast Dose TakenReconciled with current Order Reconciliation Comment/ Additional Information ATENOLOL 100MG TAB 0.5 tab(s) orally 2 times a [id number] 3 10:00 AM Atenolol Tablet (TENORMIN)DOSE = 50 mg Oral 2 Times a DayATENOLOL 100MG TAB continued as the inpatient order Atenolol LISINOPRIL 5MG TAB 1 tab(s) orally once a [id number] 3 10:00 AM Lisinopril Tablet (PRINIVIL, ZESTRIL)DOSE = 5 mg Oral DailyLISINOPRIL 5MG TAB continued as the inpatient order Lisinopril LORazepam 1MG TAB 1 tab(s) orally once a day (at bedtime)08-Sep-2022 10:00 PM LORazepam Tablet (ATIVAN)DOSE = 1 mg Oral At Bedtime LORazepam 1MG TAB continued as the inpatient order LORazepam METFORMIN 500MG TAB 1 tab(s) orally 2 times a [id number] 3 10:00 AM Reviewed and Held POT CHLORIDE 10MEQ ER CAP 1 cap(s) orally once a [id number] 3 10:00 AM Potassium Chloride Extended Release Tablet, Extended ReleaseDOSE = 10 mEq Oral DailyPOT CHLORIDE 10MEQ ER CAP continued as the inpatient order Potassium Chloride Extended Release ROSUVASTATIN 10MG TAB 1 tab(s) orally once a [id number] 3 10:00 AM Rosuvastatin Tablet (CRESTOR)DOSE = 10 mg Oral DailyROSUVASTATIN 10MG TAB continued as the inpatient order Rosuvastatin TRIAMT/HCTZ 37.5-25 TAB 1 tab(s) orally once a [id number] 3 10:00 AM Triamterene 37.5 mg- hydroCHLOROthiazide 25 mg - PEDS Tablet (MAXZIDE)DOSE = 1 tablet(s) Oral DailyTRIAMT/HCTZ 37.5-25 TAB continued as the inpatient order Triamterene 37.5 mg- hydroCHLOROthiazide 25 mg - PEDS VENLAFAXINE ER 75MG CAP 1 cap(s) orally once a [id number] 3 10:00 AM Venlafaxine Extended Release Capsule, Extended Release (EFFEXOR XR)DOSE = 75 mg Oral DailyVENLAFAXINE ER 75MG CAP continued as the inpatient order Venlafaxine Extended Release XARELTO 20 MG TABLET 1 tab(s) orally once a [id number] 3 10:00 AM Blood in Urine, Monitor for XARELTO 20 MG TABLET continued as the inpatient order Blood in Urine, Monitor for; XARELTO 20 MG TABLET continued as the inpatient order Bleeding, Monitor for; XARELTO 20 MG TABLET continued as the inpatient order Rivaroxaban XARELTO 20 MG TABLET 1 tab(s) orally once a [id number] 3 10:00 AM Bleeding, Monitor for XARELTO 20 MG TABLET continued as the inpatient order Blood in Urine, Monitor for; XARELTO 20 MG TABLET continued as the inpatient order Bleeding, Monitor for; XARELTO 20 MG TABLET continued as the inpatient order Rivaroxaban XARELTO 20 MG TABLET 1 tab(s) orally once a [id number] 3 10:00 AM Rivaroxaban Tablet (XARELTO)DOSE = 20 mg Oral Daily 1800Clinician Notes: WITH THE EVENING MEALXARELTO 20 MG TABLET continued as the inpatient order Blood in Urine, Monitor for; XARELTO 20 MG TABLET continued as the inpatient order Bleeding, Monitor for; XARELTO 20 MG TABLET continued as the inpatient order Rivaroxaban Additional Current Orders Acetaminophen Tablet (TYLENOL)DOSE = 650 mg Oral Every 4 Hours, PRN Pain - Mild (1-3) Blood Glucose POCT Before Meals & Bedtime cefTRIAXone 1 gram/ Dextrose 5% IVPB Premixed Soln 50 mL (ROCEPHIN)Every 24 HoursRecommended Infusion Time: 30 minute(s)Notes from Pharmacy: Sepsis-Continued abx Enoxaparin SubCutaneous (LOVENOX)DOSE = 40 mg SubCutaneous Every 12 Hours Ondansetron Injectable (ZOFRAN)DOSE = 4 mg IntraVenous Push Every 4 Hours, PRN Nausea and/or Vomiting Pantoprazole Enteric Coated Tablet (PROTONIX)DOSE = 40 mg Oral Daily Sodium Chloride 0.9% Infusion IV Bag Volume = 1,000 mL Run at: 100 mL/hr IntraVenous Stop After 24 Hours Sodium Chloride 0.9% Infusion IV Bag Volume = 1,000 mL Run at: 75 mL/hr IntraVenous Sodium Chloride 0.9% Injectable Flush via Peripheral LineVolume = 10 mL IntraVenous Flush Every 8 Hours and as Needed Normal [facility] PT/INRon 09-08-2022 PT Coag (PPP) [Time] 63.6 s Critically abnormal 9.8 - 13.4 [facility] Comment on above: Order Comment: PT RE PORTED TO KIARRA VALLES, 09/08/2022 13:56 Called- RB to Dr. Vera Huang at 1354 by CARLITOS , 09/08/2022 13:54 [facility] TO KIARRA VALLES, 09/08/2022 13:56 Performed By: #### C BCDF #### [place] [address] PT, INR 5.4 Critically abnormal 0.9 - 1.1 [facility] Comment on above: Order Comment: PT RE PORTED TO HEATHER HOLDERKAMI, KIARRA, 09/08/2022 13:56 Called- RB to Dr. Vera Huang at 1354 by , 09/08/2022 13:54 Result Comment: Call ed- RB to Dr. Vera Huang at 1354 by , 09/08/2022 13:54 Performed By: #### C BCDF #### [place] [id number] [place] [address] Patient Profile - Adult v2on 09-08-2022 Patient Profile - Adult v2 Profile: Initial Info: How to be AddressedEmily Spoken Language PreferredEnglish (1) Source of Informationpatient Stated Reason for AdmissionI'm sick Primary Contact Name and NumberJerry [phone] Wants Family/Rep Notified of Admissionno Notify PCPdo not notify PCP Informed of Patient Visiting Rightsyes [facility] Was Admitted To in Past 90 Daysnone Employment Statusdisabled Current or Previous Servicenone Patient Belongingsremains with patient Patient Belongings Remaining with Patientcell phone/electronics; vision aids; purse/wallet; dental appliance; top dentures Medications Brought to Hospitalno General Health: Weight in kg116.5 kilogram(s) Weight in rvq249.8 pound(s) Weight Methodactual (measured) Scale Typebed Height in cm167.5 centimeter(s)(2) Height in feet5 feet Height in inches5.98 inch(es) Height Methodstated BMI (kg/m2)41.523 square meter RSP Based Care: Major Change/Loss/Stressor/Fea rsmedical condition, family; 40 year old son who lives with us has cystic fibrosis and a problem with alcohol How would you like to participate in your carelay here and let you do what you have to What is the number one concern for you during this hospitalizationgetting better and getting out What is the most important thing we can do to support you during this hospitalizationtalk to me Is there anything we need to know to best care for youI don't walk but I can transfer to a chair Substance: Smoking Statusnever smoker (3) Alcohol Usedenies(3) Drug Usedenies (3) Health Mgmt: Symptoms/Conditions Managed at Homecardiovascular Cardiovascular Symptoms/Conditionsdysrh ythmia; hypertension Cardiovascular Managementmanaged Barriers to Managing Healthnone Relationship/Environ: Resource/Environmental Concernshome accessibility Home Accessibility Concernsbathroom not accessible; wheelchair won't fit through bathroom door so I have to use the bedpan and take bed baths Primary Source of Support/Comfortspouse Lives Withadult child(bijan); spouse Living Arrangementshouse Services Anticipated at Transitiondepends on my strength Anticipated Transition Todepends on my strength Significant IndicatorsComplete Information Review: Allergies, Home Meds and Significant Events have been Reviewed and Verified with Patient/Familyyes ALLERGY, INTOLERANCE, ADVERSE EVENT: Allergies: No Known Allergies: Active Electronic Signatures: Dania Braun (RN) (Signed 08-Sep-2022 20:10) Authored: Initial Info, General Health, RSP Based Care, Substance, Health Mgmt, Relationship/Environ, Additional Information Last Updated: 08-Sep-2022 20:10 by Dania Braun (RN) References: 1. Data Referenced From Triage - ED 08-Sep-2022 12:56 2. Data Referenced From 1. Vital Signs 08-Sep-2022 12:17 3. Data Referenced From History and Physical 08-Sep-2022 17:47 Normal [facility] Provider Note - ED v3on 06-0 Provider Note - ED v3 Provider Note: Chart Review: ED NOTES ED NOTES: Source of Information: Patient. EMR was reviewed for previous records. The EMS transfer sheet was not available during my initial assessment of the patient. -------- HPI: Fever, generalized weakness, inability to get out of bed. This 76-year-old white female states that she began to get sick earlier the week on Sunday and that her entire family at her home have been sick. She has had fever, chills, anorexia and generalized weakness she states that she has not been able to get out of bed because she has been so weak and no one's been able to help her get herself. She states that she normally transfers to wheelchair. Patient denies any new skin rashes though does admit to picking her skin her lower extremities. She denies any shortness of breath or chest pain. -------- PMH: Atrial fibrillation, type 2 diabetes, hypercholesteremia, obesity, PSH: , cholecystectomy Social Hx: The patient denies any use of tobacco, alcohol or illicit drugs. Fam: MEDS: Ultram ALLERGIES: NKDA -------- PHYSICAL EXAM: General: Patient alert, awake, oriented X3, appears to be in no obvious distress, nontoxic, cooperative, obese. Unkept, malodorous Skin: Warm. Dry. No rash. Has multiple healing excoriations of the lower extremities without evidence of secondary infection. Patient has evidence of chronic skin changes due to lymphedema. Eyes: PEARTLA, EOMIs intact, sclera white, conjunctiva clear HEENT: Atraumatic. Normo-cephalic. Oral and nasal mucosa pink and moist. Neck: Supple without meningismus, no lymphadenopathy. CV: Slightly tachycardic rate without murmur Respiratory: Nonlabored breathing. There are no retractions or tachypnea. Lungs are clear to auscultation bilaterally. GI: Soft, nontender, without gross distention, bowel sounds present in all 4 quadrants. There is no pulsatile masses. There is no CVA tenderness. No rebound, rigidity or guarding. MUSC: There is no joint swelling or bony tenderness on exam. Neuro: Cranial nerves II - XII grossly intact. No focal neurologic deficits are noted on exam. Lower extremities: There is no peripheral edema bilaterally, negative Homans sign. No palpable cords. Distal pulses are +2/4 and present in both lower extremities. Psych: Maintains eye contact. Cooperative. -------- ED course: EKG was interpreted by myself at 12:22 PM reveals sinus tach with PVCs and occasional junctional escape beats. Heart rate is 101 bpm. The MA interval is 164 ms. The QRS duration is 96 ms. The QTc is 453 ms. Critz is -15 degrees. Patient was seen and evaluated due to complaints of generalized weakness and fever with inability to get out of bed. She was diagnosed with a urinary tract infection started on broad-spectrum antibiotics due to his concern for sepsis and admitted to the hospital for further IV antibiotics. This chart was dictated with the use of SmashFly software within the framework of the current electronic medical records software. Attempts were made to edit in real time, given time constraints there is the potential for inaccuracies in my dictation. Vera Huang DO HISTORY OF PRESENTING ILLNESS DARYN is a 76 year old Female and was seen by me at 08-Sep-2022 12:20. Triage Information: Most recent Vital Sign Value Date Temp (F): 102.4 09-08-2022 12:56 Temp (C): 39.1 09-08-2022 12:56 Heart Rate (beats/min): 106 09-08-2022 12:56 Respirations (breaths/min): 20 09-08-2022 12:56 SpO2 (%): 94 09-08-2022 12:56 BP Systolic (mm Hg): 115 09-08-2022 12:56 BP Diastolic (mm Hg): 55 09-08-2022 12:56 PAST MEDICAL HISTORY CURRENT OR FORMER SUBSTANCE USE: Tobacco/Nicotine Use: never smoker Alcohol Use: denies Drug Use: denies,ALLERGIES/INTOLER ANCES: No Known Allergies HEALTH HISTORY: No documented data. OUTPATIENT MEDICATIONS: Home Medications Review Status for Reconciliation: Complete Med Status: Patient Currently Takes Medications Drug Name: LISINOPRIL 5MG TAB Instructions: 1 tab(s) orally once a day Drug Name: LORazepam 1MG TAB Instructions: 1 tab(s) orally once a day (at bedtime) Drug Name: METFORMIN 500MG TAB Instructions: 1 tab(s) orally 2 times a day Drug Name: POT CHLORIDE 10MEQ ER CAP Instructions: 1 cap(s) orally once a day Drug Name: ROSUVASTATIN 10MG TAB Instructions: 1 tab(s) orally once a day Drug (more content not included)... Normal [facility] RESPIRATORY CULT./SM,LOWERon 09-08-2022 RESPIRATORY CULT./SM,LOWER TEST RESPIRATORY CULT./SM,LOWER WAS CANCELLED, 09/13/2022 04:12 No specimen received. PATIENT: DARYN SHAH LOCATION: [address] BILL#: [id number] : 49 AGE: SEX: F ORDERED BY: ANGELIQUE CLARKE SOURCE: SPUTUM COLLECTED: ANTIBIOTICS AT CAREN.: RECEIVED : SITE: R E S U L T S GRAM STAIN CANCELLED 09/13/22 04:12 RESPIRATORY CULT./SM,LOWER CANCELLED 09/13/22 04:12 Normal [facility] Comment on above: Performed By: #### L ACT #### [facility] [address] [place] [address] Risk Screen - Adult Emergenc yon 09-08-2022 Risk Screen - Adult Emergency Preferred Language: Preferred Language: Preferred Language for Discussing Health Care (patient/designee)Dahiana roth Patient Preferred Pharmacy: Patient Preferred Pharmacy Statement: I have reviewed and updated the patient's preferred pharmacy selection for today's visit. Advanced Directives: Advance Directive/DNRyes Advance Directive typeLiving Will Family Violence Adult: Abuse Screen: Are you or have you been threatened or abused physically, emotionally, or sexually by anyoneno Learning Assessment (Patient): Learning Assessment (Patient): Patient is Able to be Assessed for Learningyes Factors Influencing Readiness to Learnn/a Factors that Impact Ability to Learnnone Devices/Methods Used to Communicatenone Learning Preferencesverbal instruction Cultural Considerationsnone Developmental Considerationsnone Cheondoism Considerationsnone Learning Assessment (Other Learner): Learning Assessment (Other Learner): Other learner availableno Pressure Injury/TB/Substance: Pressure Injury: Do you have a coughno Smoking Statusnever smoker (1) Alcohol Usedenies(1) Drug Usedenies (1) Admission Risk Screen: Significant IndicatorsComplete CAGE: CAGE: Is this an injured patient at a Trauma Center ([facility]/[place] /[place]): no Electronic Signatures: Laurie Talamantes (UZMA) (Signed 08-Sep-2022 13:04) Authored: Preferred Language, Patient Preferred Pharmacy, Advanced Directives, Family Violence Adult, Learning Assessment (Patient), Learning Assessment (Other Learner), Pressure Injury/TB/Substance, Pressure Injury, CAGE Last Updated: 08-Sep-2022 13:04 by Laurie Talamantes (UZMA) References: 1. Data Referenced From Provider Note - ED v3 08-Sep-2022 12:38 Normal [facility] Triage - EDon 09-08-2022 Triage - ED Chart Review: PRIMARY ASSESSMENT ABCD Normal Findings: airway open and patent and alert and oriented ARRIVAL INFORMATION Means of Arrival: stretcher Mode of Arrival: ambulance Agency: [facility] Agency Name: karen Arrival From: home Accompanied By: self Language: Spoken Language Preferred: [place] Reading Language Preferred: [place] Present on Arrival: Device Present on Arrival to ED: no CHIEF COMPLAINT DARYN SHAH is a Female patient with a chief complaint of weakness (c/o chills and weakness x 3 days. denies any pain or sob. states unable to get out of bed. denies appetite. alert and oriented pt incont of urine.). Triage Date/Time: 08-Sep-2022 12:17 JANNA: 3 Pain Rating (0-10): 0 = None Vital Signs: Temperature: 102.4F ( 39.1C) taken oral Blood Pressure: 115/55 Mean: Heart Rate: 106 Respiratory Rate: 20 Pulse Oximetry: 94% on room air, no respiratory support. Height: 5 feet 6.00 inches. 167.6 CM Weight: 285.4 pounds. Calculated 129.5 kg. (stated) Calculated BMI (kg/m2): 46.102 Calculated BSA (m2) 2.46 Bingham Coma Scale: Best Eye Response: (E4) spontaneous Best Motor Response: (M6) obeys commands Best Verbal Response: (V5) oriented Bingham Score: 15 Allergies: no Patient has homicidal thoughts: no Symptom Notes: . Symptoms Are POSITIVE For: weakness. Symptoms Are Negative For: confusion and nausea. Last Known Well: unknown Date and Time of Brain Attack / Stroke Alert: 05-Sep-2022 Risk Screens Suicide Risk Screen In the Past Month: Have you wished you were or wished you could go to sleep and not wake up no In the Past Month: Have you had any actual thoughts of killing yourself no In Your Lifetime: Have you ever done anything, started to do anything, or prepared to do anything to end your life no Marsh Fall Scale Screening Has the patient fallen before (or is the patient in the ED as a result of a fall) has not had a fall Does the patient have an impaired gait has impaired gait Is the patient cognitively impaired not cognitively impaired Marsh Fall Scale History of falling (immediate or previous) no (0) Secondary Diagnosis yes (15) Intravenous Therapy/ Heparin/Saline Lock no (0) Gait/Transferring impaired (20) Ambulatory Aids none/bedrest/nurse assist (0) Mental Status oriented to own ability (0) Marsh Fall Risk Score: 35 Interventions: Marsh Fall Interventions: MODERATE INTERVENTIONS: *Low Interventions Plus: * falls risk band/sticker applied to patient, *yellow non-skid footwear, *instruct to call for assistance before getting out of bed, *bed/chair/bedside commode/toilet alarms, *sensory devices/ambulatory aides available and in reach, *medications reviewed for potential side effects and care planning. TRAVEL HISTORY Travel History Coronavirus Screening: no exposure or symptoms Travel Exposure History: NO travel to International locations in the past 30 days PAIN Pain Scale Used: ABDIRAHMAN Pain Rating (0-10): 0 = None Past Medical History: Past Medical History Reviewedyes Atrial Fibrillation: Past Medical History, Active Hypertension (HTN): Past Medical History, Active Electronic Signatures: Laurie Talamantes (UZMA) (Signed 08-Sep-2022 13:01) Entered: Risk Screens, Pain, Arrival, ABCD, Travel History, Chart Review, Scores, Past Medical History Authored: Quick Triage, Risk Screens, Pain, Arrival, ABCD, Travel History, Chart Review, Scores, Past Medical History Last Updated: 08-Sep-2022 13:01 by Laurie Talamantes (UZMA) Normal [facility] UA MICROSCOPICon 09-08-2022 AMORPHOUS CRYSTAL 2+ /HPF Normal [facility] Comment on above: Performed By: #### C BCDF #### [place] [address] BACTERIA 2+ /HPF Abnormal [facility] Comment on above: Performed By: #### C BCDF #### [address] [address] RBC None Normal [address] [place] [address] Comment on above: Performed By: #### C BCDF #### [address] [address] WBC 64 /HPF Abnormal 0-5 [facility] Comment on above: Performed By: #### C BCDF #### [address] [address] WBC CLUMPS RARE Normal [facility] Comment on above: Performed By: #### C BCDF #### [place] [id number] URINALYSIS WITH CULTURE IF I NDICATEDon 09-08-2022 Appearance (U) HAZY Normal CLEAR [facility] Comment on above: Performed By: #### U ARFX #### [place] [address] Bilirubin Ql (U) Negative Normal NEGATIVE [facility] Comment on above: Performed By: #### U ARFX #### [place] [address] Color (U) Yellow Normal STRAW,YELLOW [facility] Comment on above: Performed By: #### U ARFX #### [place] [address] Glucose Ql (U) Negative Normal NEGATIVE [facility] Comment on above: Performed By: #### U ARFX #### [place] [address] Hemoglobin Ql (U) SMALL(1+) Abnormal NEGATIVE [facility] Comment on above: Performed By: #### U ARFX #### [place] [address] Ketones Ql (U) 5(TRACE) Abnormal NEGATIVE [facility] Comment on above: Performed By: #### U ARFX #### [place] [address] Leukocyte esterase Test strip Ql (U) LARGE(3+) Abnormal NEGATIVE [facility] Comment on above: Performed By: #### U ARFX #### [place] [address] Nitrite Ql (U) Negative Normal NEGATIVE [facility] Comment on above: Performed By: #### U ARFX #### [place] [address] pH (U) 5.0 [pH] Normal 5.0 - 8.0 [facility] Comment on above: Performed By: #### U ARFX #### [place] [address] Protein Ql (U) Negative Normal NEGATIVE [facility] Comment on above: Performed By: #### U ARFX #### [address] [address] Specific gravity (U) [Rel density] 1.024 Normal 1.005 - 1.035 [facility] Comment on above: Performed By: #### U ARFX #### [address] [address] Urobilinogen (U) [Mass/Vol] mg/dL Normal 0.0 - 1.9 [facility] Comment on above: Performed By: #### U ARFX #### [address] [address] URINE CULTURE,BACTERIALon URINE CULTURE,BACTERIAL PATIENT: DARYN SHAH LOCATION: [address]#: [id number] : 49 AGE: SEX: F ORDERED BY: VERA HUANG SOURCE: URINE COLLECTED: 09/08/22 14:21 ANTIBIOTICS AT CAREN.: RECEIVED : 09/09/22 00:26 SITE: R E S U L T S URINE CULTURE,BACTERIAL FINAL 09/10/22 07:56 NO SIGNIFICANT GROWTH. Normal [facility] Comment on above: Performed By: #### C BCDF #### [place] [id number] US RENAL BILATon 09-08-2022 US RENAL BILAT Patient Name: DARYN SHAH STUDY: US RENAL BILAT; 09/08/2022 6:46 pm INDICATION: UTI . COMPARISON: Renal ultrasound of 12/08/2019 and a three-phase CT scan of the kidneys done on 01/05/2020. ACCESSION NUMBER(S): [id number] ORDERING CLINICIAN: ANGELIQUE CLARKE TECHNIQUE: Multiple images of the kidneys were obtained . FINDINGS: Limited evaluation of the kidneys due to the patient's body habitus. RIGHT KIDNEY: Normal in size and echogenicity and measures 11.6 cm in length. Adequate cortical thickness. There is a hyperechoic nodule in the inferior pole of the right kidney consistent with an angiomyolipoma and seen also on the prior imaging studies. No hydronephrosis, stones or suspicious masses. LEFT KIDNEY: Normal in size and echogenicity and measures 10.4 cm in length. Limited evaluation of the left kidney due to prominent subcutaneous adipose tissue. Adequate cortical thickness. There is a 2.5 x 2.3 x 2.2 cm fullness in the medial superior aspect of the left kidney. It appears larger than the renal ultrasound of 12/08/2019.. No corresponding abnormalities were noted on the three-phase CT scan of 12/28/2019. 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 A 1.3 cm hypodensity in the inferior pole of the left kidney seen on the CT of 12/28/2019 is not identified on the current sonogram. No hydronephrosis or shadowing calculi. BLADDER: Partially filled. Unremarkable. 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 A nodule at this level suspected on the ultrasound of 12/07/2021 was not seen on a three-phase CT of 01/04/2022. As a precaution, six-month follow-up renal ultrasound is recommended. Electronically signed by: KEVIN REYNOLDS MD Normal [facility] Medicare Annual Wellness Vis iton 06-05-2022 Medicare Annual Wellness Visit *Chief Complaint medck and AWV History of Present Illness The patient is being seen for the initial annual wellness visit. Past Medical, Surgical and Family History: reviewed and updated in chart. Medications and Supplements: Review of all medications by a prescribing practitioner or clinical pharmacist (such as prescriptions, OTCs, herbal therapies and supplements) documented in the medical record. No, the patient is not using opioids. Patient Self Assessment of Health Status: good. Tobacco use: Non-User Alcohol use: Non-User Illicit drug use: Non-User Current diet: unhealthy diet, does not consume adequate fluids and does not consume caffeine. Exercise Frequency: regularly. Depression/Suicide Screening:. During the past 2 weeks, the patient felt down, depressed or hopeless. During the past 2 weeks, the patient felt little interest or pleasure in doing things. PHQ-9 Depression Scale: 1. Little interest or pleasure in doing things - several days 2. Feeling down, depressed or hopeless - nearly every day 3. Trouble falling asleep or sleeping too much - more than half the days 4. Feeling tired or having little energy - nearly every day 5. Poor appetite or overeating - nearly every day 6. Feeling bad about self or failure or letting others down - nearly every day 7. Trouble concentrating on things - not at all 8. Moving / speaking slowly or fidgety / restless - nearly every day 9. Thought would be better off or hurting self - not at all Total Score: 18/27 Severity of depression is moderately severe. How difficult have these problems made it for you to do your work, take care of things at home, or get along with people? Somewhat difficult. Hearing Impairment: Patient has significant hearing impairment. Cognitive Impairment: No cognitive impairment observed, patient or family reported no cognitive impairment. Bathing: needs assistance. Dressing: performs independently. Walking: dependent. Managing Finances: performs independently. Shopping: performs independently. Managing Medications: performs independently. Housework / Basic Home Maintenance: dependent. Falls Risk Screening:. DARYN has not fallen in the last 6 months. Home safety risk factors: poor household lighting, no grab bars in the bathroom and household clutter. Advance directives:. Advanced Care Planning discussed and documented advance care plan or surrogate decision maker documented in the medical record. Patient has living will. Patient has no healthcare POA. Patient's End of Life Decisions: End of life decisions were reviewed with the patient. I agree to follow the patient's decisions. Additional Information: Noris. No longer has C. She is doing better and able to get in here on her own. In wheelchair. Has lift on van. She is not able to stand on scales. She has been to eye doctor and did get glasses. Notes high pressure. Going out to eat. drives but she uses lift on van for WC Asthma - has been good on no meds. Cough seem related to stress as well. Atrial Fibrillation - not noted. Has had phone visit with Dr Valdivia in May. No chest pain or palpitations. Benign essential hypertension I - Med works well without side effects. Home blood pressure good. . No Chest pain, Dyspnea, orthopnea, palpitations, numbness, weakness, claudication, or double vision/ loss of vision. Edema is better with the hospital bed. Has secondary changes of skin. Does have some vertigo when rolling around to get pull-ups on. OK when up. Depressive disorder - seems to be in a good phase now that she can get out. She is no longer with palliative care. 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 . She is realizing that she cannot do anything about many of the things. Activity- she gets in Wheelchair without the board. Biggest issue is her son. She does well when he is not there. She is learning to let him make his own choices but cannot complain about consequences. PHQ-9 score 18 Diabetes - has been mid 100s in AM when she checks. A1C 8.0% this time. Says in the past was on bid Metformin but then on daily and off. She is off glimepiride.. And back on metformin.. Has been all at hs so will go back to bid Vision is better with the glasses. Tingling and cramps in fingers and toes. Magnesium is low so will get back on that. No sores on feet or buttocks. Has a hospital bed that really helps. Eyes are dry Diarrhea with mushy stools. Not frequent Knees with arthritis pain when trying to walk. Cannot stand without help. Doing her exercises. Less afraid to stand but not ready to walk as she would fall. Wakes at hs at times. Still cannot get into shower and bathroom so washes at bedside and uses bedpan. Plans to go to [facility] and slide over. Has a walker but uses a wheelchair Hyperlipidemia - with DM treating this with Crestor. Good this time Lymphedema of leg - exercises have really helped to get this down. She has not been needing the compression wraps. Feels like (more content not included)... Normal [employer] Tobacco Screening.on 023 Adult depression screening assessment Yes [facility] Work Phone: Adult depression screening assessment No [facility] Phone: Fall risk assessment a) No falls within the last year [facility] Phone: Tobacco use status CP b) No [facility] Work Phone: Hemoglobin A1Con 06-01-2022 Glucose [Mass/Vol] 183 mg/dL [facility] Work Phone: HbA1c (Bld) [Mass fraction] 8.0 % Abnormal [facility] Work Phone: Comment on above: Diagnosis of Diabete s-Adults Non-Diabetic: < or = 5.6% Increased risk for developing diabetes: 5.7-6.4% Diagnostic of diabetes: > or = 6.5%. Monitoring of Diabetes Age (y) Therapeutic Goal (%) Adults: >18 <7.0 Pediatrics: 13-18 <7.5 7-12 <8.0 0- 6 7.5-8.5 [place] [employer]. Diabetes Care 33(S1), Apr 2009. Laboratory - Chemistry and C hemistry - challengeon 06-01-2022 Anion gap [Moles/Vol] 13 mmol/L 10 - 20 [facility] Work Phone: Calcium [Mass/Vol] 9.8 mg/dL 8.6 - 10.3 [facility] Work Phone: Chloride [Moles/Vol] 98 mmol/L 98 - 107 [facility] Work Phone: CO2 [Moles/Vol] 29 mmol/L 21 - 32 [facility] Work Phone: Creatinine [Mass/Vol] 0.86 mg/dL See Below [facility] Work Phone: Comment on above: Reference Range: 0.5 0 - 1.05 Glucose [Mass/Vol] 191 mg/dL above high threshold 74 - 99 [facility] Work Phone: Potassium [Moles/Vol] 4.7 mmol/L 3.5 - 5.3 [facility] Work Phone: Sodium [Moles/Vol] 135 mmol/L below low threshold 136 - 145 [facility] Work Phone: Urea nitrogen [Mass/Vol] 24 mg/dL above high threshold 6 - 23 [facility] Work Phone: Magnesium, Serumon Magnesium [Mass/Vol] 1.62 mg/dL See Below -A [facility] Work Phone: Comment on above: Reference Range: 1.6 0 - 2.40 No Panel Informationon 06-01 71 {mL/min/1.73m2} >90 [facility] Work Phone: Comment on above: CALCULATIONS OF HANNAH MATED GFR ARE PERFORMED USING THE 2020 CKD-EPI STUDY REFIT EQUATION WITHOUT THE RACE VARIABLE FOR THE IDMS-TRACEABLE CREATININE METHODS.https://jasn.asnjournals.org/content/early//A SN.2848335153 Vitamin B12, Serumon 023 Cobalamin (Vitamin B12) [Mass/Vol] 539 pg/mL 211 - 911 [facility] Work Phone: Office Visit (Cardiology)on 05-24-2022 Follow-up visit Diagnoses/Problems Assessed Benign essential hypertension (401.1) (I10) Hyperlipidemia (272.4) (E78.5) Chief Complaint Longstanding persistent atrial fibrillation History of Present [id number] female with a medical history of morbid obesity, hypertension, diabetes, lymphedema, atrial fibrillation here for follow-up: Problem #1 longstanding persistent atrial fibrillation -Current medications include atenolol 50 mg twice daily, Xarelto 20 mg daily -Echocardiogram dated 02/14/2019 shows normal biventricular function, biatrial dilatation -Currently on this visit the patient denies any chest discomfort or shortness of breath. Denies any orthopnea/PND. She has some lower extremity edema secondary to her lymphedema. Denies any bleeding complications from her Xarelto Problem #2 hypertension -Controlled today Active Problems Problems Anxiety (300.00) (F41.9) Asthma (493.90) (J45.909) Atrial fibrillation (427.31) (I48.91) Benign essential hypertension (401.1) (I10) Depression, major, single episode, moderate (296.22) (F32.1) Diabetes mellitus type 2, controlled (250.00) (E11.9) Diarrhea (787.91) (R19.7) Generalized weakness (780.79) (R53.1) Hyperlipidemia (272.4) (E78.5) Hypokalemia (276.8) (E87.6) Internal hemorrhoid, bleeding (455.2) (K64.8) [facility] prescription benzodiazepine use (V58.69) (Z79.899) Lumbar facet arthropathy (721.3) (M47.816) Lymphedema of leg (457.1) (I89.0) Magnesium deficiency (275.2) (E61.2) Medication management (V58.69) (Z79.899) Morbid obesity with BMI of 50.0-59.9, adult (278.01,V85.43) (E66.01,Z68.43) Neurodermatitis (698.3) (L28.0) Palpitation (785.1) (R00.2) Personal history of colonic polyps (V12.72) (Z86.010) Primary osteoarthritis of both knees (715.16) (M17.0) Renal lesion (593.9) (N28.9) Screening mammogram, encounter for (V76.12) (Z12.31) Venous stasis ulcer with varicose veins of lower extremity (454.0) (I83.009,L97.909) Vitamin D deficiency (268.9) (E55.9) Weakness of both lower extremities (729.89) (R29.898) Surgical History Problems History of section History of Cholecystectomy History of Colonoscopy History of Dilation and curettage 1966 and 1978 History of Tubal ligation Past Medical History Problems History of Cellulitis, leg (682.6) (L03.119) Resolved Date: 04 Feb 2021 History of acute bronchitis (V12.69) (Z87.09) Resolved Date: 09 Jun 2021 History of acute sinusitis (V12.69) (Z87.09) Resolved Date: 09 Jun 2021 History of dermatitis (V13.3) (Z87.2) Resolved Date: 09 Jun 2021 History of irregular heartbeat (V12.59) (Z86.79) Resolved Date: 05 Feb 2019 History of upper respiratory infection (V12.09) (Z87.09) Resolved Date: 03 Aug 2020 History of 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 CoQ10 CAPSTAKE 1 CAPSULE DAILY WITH A MEAL. Lisinopril 5 MG Oral TabletTake 1 tablet daily LORazepam 1 MG Oral TabletTAKE 1 TABLET Bedtime Magnesium TABSTake 1 tablet daily metFORMIN HCl - 500 MG Oral TabletTAKE 1 TABLET TWICE DAILY. Potassium Chloride ER 10 MEQ Oral Capsule Extended ReleaseTAKE 1 CAPSULE Daily 1 CAPSTAKE 1 CAPSULE Daily Rosuvastatin Calcium 10 MG Oral TabletTake 1 tablet daily Triamterene-HCTZ 37.5-25 MG Oral TabletTAKE 1 TABLET DAILY. Unspecified MedicationBariatric Wheelchair with leg rests and arm rests. Unspecified MedicationMedi Circ Aid wide circumference and standard length. Venlafaxine HCl ER 75 MG Oral Capsule Extended Release 24 HourTAKE 1 CAPSULE Daily Xarelto 20 MG Oral TabletTake 1 tablet daily Allergies Medication Effexor Edema; Recorded By: Jojo You; 02/03/2019 6:18:17 PM Family History Mother Family history of Alzheimer's disease (V17.2) (Z82.0) Family history of cardiac disorder (V17.49) (Z82.49) Family history of malignant neoplasm (V16.9) (Z80.9) cervix Family history of malignant neoplasm of female breast (V16.3) (Z80.3) Child Family history of cystic fibrosis (V18.19) (Z83.49) Grandparent Family history of cardiac disorder (V17.49) (Z82.49) Family history of diabetes mellitus (V18.0) (Z83.3) Social History Problems Consumes caffeine from carbonated beverages (V49.89) (Z78.9) Never a smoker No alcohol use No illicit drug use No recent foreign travel Patient has living will (V49.89) (Z78.9) Review of Systems Constitutional: Denies any fever or chills Eyes: Denies any eye pain or blurry vision ENT: Denies any ear pain or hearing loss Cardiovascular: The heart rate is not slow, the heart rate is not fast Respiratory: Denies any asthma/wheezing Gastrointestinal: Denies any adina colored stools or fatty food intolerance Genitourinary: Denies any blood (more content not included)... Normal [employer] Tobacco Screening.on 023 Fall risk assessment a) No falls within the last year [employer] Work Phone: Tobacco use status [facility] b) No [employer] 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 (250.40,585.3) (E11.22,N18.30) Diabetes mellitus type 2, controlled (250.00) (E11.9) Lymphedema of leg (457.1) (I89.0) Generalized weakness (780.79) (R53.1) Benign essential hypertension (401.1) (I10) Depression, major, single episode, moderate (296.22) (F32.1) Diarrhea (787.91) (R19.7) Neurodermatitis (698.3) (L28.0) Vitamin D deficiency (268.9) (E55.9) Morbid obesity with BMI of 50.0-59.9, adult (278.01,V85.43) (E66.01,Z68.43) Hyperlipidemia (272.4) (E78.5) Hypokalemia (276.8) (E87.6) Personal history of colonic polyps (V12.72) (Z86.010) Primary osteoarthritis of both knees (715.16) (M17.0) Venous stasis ulcer with varicose veins of lower extremity (454.0) (I83.009,L97.909) Weakness of both lower extremities (729.89) (R29.898) Lumbar facet arthropathy (721.3) (M47.816) Magnesium deficiency (275.2) (E61.2) Medication management (V58.69) (Z79.899) Orders Anxiety Renew: LORazepam 1 MG Oral Tablet; TAKE 1 TABLET Bedtime I have personally reviewed the patients OARRS report. This report is filed in the EHR. I have considered the risks of abuse, addiction and diversion. I believe it is clinically appropriate to continue to prescribe this medication. I have personally reviewed the patients OARRS report. This report is filed in the EHR. I have considered the risks of abuse, addiction and diversion. I believe it is clinically appropriate to continue to prescribe this medication. I have personally reviewed the patients OARRS report. This report is filed in the EHR. I have considered the risks of abuse, addiction and diversion. I believe it is clinically appropriate to continue to prescribe this medication. I have personally reviewed the patients OARRS report. This report is filed in the EHR. I have considered the risks of abuse, addiction and diversion. I believe it is clinically appropriate to continue to prescribe this medication. Benign essential hypertension Renew: Atenolol 100 MG Oral Tablet; TAKE 0.5 TABLET Twice daily Renew: Lisinopril 5 MG Oral Tablet; Take 1 tablet daily Renew: Triamterene-HCTZ 37.5-25 MG Oral Tablet; TAKE 1 TABLET DAILY Diabetes mellitus type 2, controlled Stop: Glimepiride 2 MG Oral Tablet Basic Metabolic Panel; Status:Active; Requested for:[id number]; Start: metFORMIN HCl - 500 MG Oral Tablet; TAKE 1 TABLET TWICE DAILY Hemoglobin A1C; Status:Active; Requested for:[id number]; Hyperlipidemia Renew: Rosuvastatin Calcium 10 MG Oral Tablet; Take 1 tablet daily Hypokalemia Renew: Potassium Chloride ER 10 MEQ Oral Capsule Extended Release; TAKE 1 CAPSULE Daily Magnesium deficiency Magnesium, Serum; Status:Active; Requested for:[id number]; Medication management Follow-up visit in 3 months Outpatient Follow-up Status: Hold For - Scheduling Requested for: [id number] Vitamin D deficiency Vitamin B12, Serum; Status:Active; Requested for:[id number]; Chief Complaint medck History of Present IllnessNo longer has [facility]. She is doing better and able to get in here on her own. In wheelchair. Has lift on van. She is not able to stand on scales. She has been to eye doctor and did get glasses. Notes high pressure. Asthma - has been good on no meds. Cough seem related to stress as well. Atrial Fibrillation - not noted. Has had phone visit with Dr Valdivia in May. No chest pain or palpitations. BMP WNL with GFR 74 but FBS 124. Benign essential hypertension and CKD III - Med works well without side effects. Home blood pressure good. . No Chest pain, Dyspnea, orthopnea, palpitations, numbness, weakness, claudication, or double vision/ loss of vision. Edema is better with the hospital bed. Has secondary changes of skin. Does have some vertigo when rolling around to get pull-ups on. OK when up. Depressive disorder - seems to be in a good phase now that she can get out. She is no longer with palliative care. 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 . She is realizing that she cannot do anything about many of the things. Activity- she gets in Wheelchair without the board. Biggest issue is her son. She cannot allow her house to be a destination for him. She does well when he is not there. Turn worries into prayers. Diabetes - has been mid 100s in AM when she checks. A1C 7.1% this time. Says in the past was on bid Metformin but then on daily and off. She is on glimepiride and can get off of that. And back on metformin Vision is better with the glasses. Tingling and cramps in fingers and toes. Magnesium is low so will get back on that. No sores on feet or buttocks. Has a hospital bed that really helps. Eyes are dry Diarrhea with mushy stools. Not frequent Knees with arthritis pain when trying to walk. Cannot stand without help. Doing her exercises. Less afraid to stand but not ready to walk as she would fall. Wakes at at times. Still cannot (more content not included)... Normal [employer] Tobacco Screening.on 022 Fall risk assessment a) No falls within the last year [facility] Work Phone: Tobacco use status [facility] b) No [facility] Work Phone: Hemoglobin A1Con 03-01-2022 Glucose [Mass/Vol] 157 mg/dL [facility] Work Phone: HbA1c (Bld) [Mass fraction] 7.1 % Abnormal [facility] Work Phone: Comment on above: Diagnosis of Diabete s-Adults Non-Diabetic: < or = 5.6% Increased risk for developing diabetes: 5.7-6.4% Diagnostic of diabetes: > or = 6.5%. Monitoring of Diabetes Age (y) Therapeutic Goal (%) Adults: >18 <7.0 Pediatrics: 13-18 <7.5 7-12 <8.0 0- 6 7.5-8.5 [place] [employer]. Diabetes Care 33(S1), Apr 2009. Laboratory - Chemistry and C hemistry - challengeon 03-01-2022 Albumin BCP dye [Mass/Vol] 3.7 g/dL 3.4 - 5.0 [facility] Work Phone: ALP [Catalytic activity/Vol] 122 U/L 33 - 136 [facility] Work Phone: ALT With P-5'-P [Catalytic activity/Vol] 8 U/L 7 - 45 [facility] Work Phone: Comment on above: Patients treated wit h Sulfasalazine may generate falsely decreased results for ALT. Anion gap [Moles/Vol] 11 mmol/L 10 - 20 [facility] Work Phone: AST With P-5'-P [Catalytic activity/Vol] 13 U/L 9 - 39 [facility] Work Phone: Bilirubin [Mass/Vol] 0.4 mg/dL 0.0 - 1.2 [facility] Work Phone: Calcium [Mass/Vol] 9.2 mg/dL 8.6 - 10.3 [facility] Work Phone: Chloride [Moles/Vol] 100 mmol/L 98 - 107 [facility] Work Phone: CO2 [Moles/Vol] 29 mmol/L 21 - 32 [facility] Work Phone: Creatinine [Mass/Vol] 0.83 mg/dL See Below [facility] Work Phone: Comment on above: Reference Range: 0.5 0 - 1.05 Glucose [Mass/Vol] 124 mg/dL above high threshold 74 - 99 [facility] Work Phone: Potassium [Moles/Vol] 4.0 mmol/L 3.5 - 5.3 [facility] Work Phone: [phone] Protein [Mass/Vol] 6.9 g/dL 6.4 - 8.2 [facility] Work Phone: [phone] Sodium [Moles/Vol] 136 mmol/L 136 - 145 [facility] Work Phone: [phone] Urea nitrogen [Mass/Vol] 20 mg/dL 6 - 23 [facility] Work Phone: Laboratory - Hematology and Cell countson 03-01-2022 Erythrocyte distribution width (RBC) [Ratio] 15.0 % above high threshold See Below [facility] Work Phone: Comment on above: Reference Range: 11. 5 - 14.5 Hematocrit (Bld) [Volume fraction] 33.5 % below low threshold See Below [facility] Work Phone: Comment on above: Reference Range: 36. 0 - 46.0 Hemoglobin (Bld) [Mass/Vol] 9.5 g/dL below low threshold See Below [facility] Work Phone: Comment on above: Reference Range: 12. 0 - 16.0 MCHC (RBC) [Mass/Vol] 28.4 g/dL below low threshold See Below [facility] Work Phone: [phone] Comment on above: Reference Range: 32. 0 - 36.0 MCV (RBC) [Entitic vol] 76 fL below low threshold 80 - 100 [facility] Work Phone: [phone] Platelets (Bld) [#/Vol] 309 10*3/uL 150 - 450 [facility] Work Phone: RBC (Bld) [#/Vol] 4.43 {x10E12/L} See Below [facility] Work Phone: [phone] Comment on above: Reference Range: 4.0 0 - 5.20 WBC (Bld) [#/Vol] 12.6 10*3/uL above high threshold 4.4 - 11.3 [facility] Work Phone: Lipid Panelon 03-01-2022 Cholesterol [Mass/Vol] 132 mg/dL 0 - 199 [facility] Work Phone: Comment on above: . AGE DESIRABLE BORD GLENDY HIGH HIGH 0-19 Y 0 - 169 170 - 199 >/= 200 20-24 Y 0 - 189 190 - 224 >/= 225 >24 Y 0 - 199 200 - 239 >/= 240 All ranges are based on fasting samples. Specific therapeutic targets will vary based on patient-specific cardiac risk.. Pediatric guidelines reference:Pediatrics 2011, 128(S5). Adult guidelines reference: NCEP ATPIII Guidelines, BILLY 2001, 258:2486-97. Venipuncture immediately after or during the administration of Metamizole may lead to falsely low results. Testing should be performed immediately prior to Metamizole dosing. Cholesterol in HDL [Mass/Vol] 45.0 mg/dL [facility] Work Phone: Comment on above: . AGE VERY LOW LOW N ORMAL HIGH 0-19 Y < 35 < 40 40-45 ---- 20-24 Y ---- < 40 >45 ---- >24 Y ---- < 40 40-60 >60. Cholesterol in LDL [Mass/Vol] 64 mg/dL 0 - 99 [facility] Work Phone: Comment on above: . NEAR BORD AGE TESS RABLE OPTIMAL HIGH HIGH VERY HIGH 0-19 Y 0 - 109 --- 110-129 >/= 130 ---- 20-24 Y 0 - 119 --- 120-159 >/= 160 ---- >24 Y 0 - 99 100-129 130-159 160-189 >/=190. Cholesterol.total/Chol esterol in HDL [Mass ratio] 2.9 {ratio} [facility] Work Phone: Comment on above: REF VALUESDESIRABLE < 3.4HIGH RISK > 5.0 Triglyceride [Mass/Vol] 115 mg/dL 0 - 149 [facility] Work Phone: Comment on above: . AGE DESIRABLE BORD GLENDY HIGH HIGH VERY HIGH 0 D-90 D 19 - 174 ---- ---- ----91 D- 9 Y 0 - 74 75 - 99 >/= 100 ---- 10-19 Y 0 - 89 90 - 129 >/= 130 ---- 20-24 Y 0 - 114 115 - 149 >/= 150 ---- >24 Y 0 - 149 150 - 199 200- 499 >/= 500. Venipuncture immediately after or during the administration of Metamizole may lead to falsely low results. Testing should be performed immediately prior to Metamizole dosing. Lipid Panel 23 mg/dL 0 - 40 [facility] Work Phone: Magnesium, Serumon Magnesium [Mass/Vol] 1.50 mg/dL below low threshold See Below [facility] Work Phone: Comment on above: Reference Range: 1.6 0 - 2.40 No Panel Informationon 03-01 74 {mL/min/1.73m2} >90 [facility] Work Phone: Comment on above: CALCULATIONS OF HANNAH MATED GFR ARE PERFORMED USING THE 2020 CKD-EPI STUDY REFIT EQUATION WITHOUT THE RACE VARIABLE FOR THE IDMS-TRACEABLE CREATININE METHODS.https://jasn.asnjournals.org/content//A .1754540169 Vitamin D 25-Hydroxyon 03-01 25-hydroxyvitamin D3 [Mass/Vol] 27 ng/mL Abnormal [facility] Work Phone: Comment on above: .DEFICIENCY: < 20 NG /MLINSUFFICIENCY: 20-29 NG/MLSUFFICIENCY: 30-100 NG/MLTHIS ASSAY ACCURATELY QUANTIFIES THE SUM OFVITAMIN D3, 25-HYDROXY AND VIT D2,25-HYDROXY. 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 This report is filed in the EHR. I have considered the risks of abuse, addiction and diversion. I believe it is clinically appropriate to continue to prescribe this medication. I have personally reviewed the patients OARRS report. This report is filed in the EHR. I have considered the risks of abuse, addiction and diversion. I believe it is clinically appropriate to continue to prescribe this medication. I have personally reviewed the patients OARRS report. This report is filed in the EHR. I have considered the risks of abuse, addiction and diversion. I believe it is clinically appropriate to continue to prescribe this medication. I have personally reviewed the patients OARRS report. This report is filed in the EHR. I have considered the risks of abuse, addiction and diversion. I believe it is clinically appropriate to continue to prescribe this medication. Diabetes mellitus type 2, controlled Comprehensive Metabolic Panel; Status:Active; Requested for:04Mar2022; Hemoglobin A1C; Status:Active; Requested for:04Mar2022; Hyperlipidemia Lipid Panel; Status:Active; Requested for:04Mar2022; Medication management Follow-up visit in 3 months Outpatient Follow-up Status: Hold For - Scheduling Requested for: [id number] 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 Complete Blood Count; Status:Active; Requested for:04Mar2022; Magnesium, Serum; Status:Active; Requested for:04Mar2022; Vitamin D deficiency Vitamin D 25-Hydroxy; Status:Active; Requested for:04Mar2022; Chief Complaint An interactive audio and video telecommunication system which permits real time communications between the patient (at the originating site) and provider (at the distant site) was utilized to provide this telehealth service. Verbal consent was requested and obtained from DARYN ALYSSA on this date, 12/02/2021 03:30 PM , for a telehealth visit. medck History of Present IllnessNo longer has [facility]. Asthma - has been good on no meds. Cough seem related to stress as well. Atrial Fibrillation - not noted. Has had phone visit with Dr Valdivia in May. No chest pain or palpitations. BMP WNL except FBS of 143. Benign essential hypertension and CKD III - Med works well without side effects. Home blood pressure 106/65 at home. No Chest pain, Dyspnea, orthopnea, palpitations, numbness, weakness, claudication, or double vision/ loss of vision. Edema is better with the hospital bed. Depressive disorder - seems to be in a good phase now that she can get out. She is no longer with palliative care. 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 She is realizing that she cannot do anything about many of the things. Activity- she gets in Wheelchair without the board. Biggest issue is her son. She cannot allow her house to be a destination for him. She does well when he is not there. Turn worries into prayers. Diabetes - has been mid 100s in AM when she checks. A1C 6.8% in September. Says in the past was on bid Metformin but then on daily and off. Some blurring and needs to get to eye doctor still. Tingling in fingers and toes. Lights with circles around them so thinks cataracts or macular degeneration. No sores on feet or buttocks. Has a hospital bed that really helps. Eyes are dry and moisturizing drops. But still needs to get in. Knees with arthritis pain when trying to walk. Cannot stand without help. Doing her exercises. Less afraid to stand but not ready to walk as she would fall. Wakes at hs at times. Still cannot get into shower and bathroom. Has a walker. Hyperlipidemia - with DM treating this with Crestor. Good in June Lymphedema of leg - exercises have really helped to get this down. She has not been needing the compression wraps. Feels like she has shoes on when she does not. . 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 On nova with her edema as well. Not red. Obesity, unspecified - not active but eating less. No recent weights. Stopped her dietary supplement Personal history of colonic polyps - not ready for scope yet. Cologuard negative. Vitamin D deficiency - Taking supplement and level was 30 in June Magnesium was 1.5. Mammogram 02/14/19 scheduled and will (more content not included)... Normal [employer] Tobacco Screening.on 022 Fall risk assessment a) No falls within the last year [facility] Work Phone: Tobacco use status [facility] b) No [facility] Work Phone: Laboratory - Chemistry and C hemistry - challengeon 12-01-2021 Anion gap [Moles/Vol] 13 mmol/L 10 - 20 [facility] Work Phone: Calcium [Mass/Vol] 9.2 mg/dL 8.6 - 10.3 [facility] Work Phone: Chloride [Moles/Vol] 98 mmol/L 98 - 107 [facility] Work Phone: CO2 [Moles/Vol] 29 mmol/L 21 - 32 [facility] Work Phone: Creatinine [Mass/Vol] 0.88 mg/dL See Below [facility] Work Phone: Comment on above: Reference Range: 0.5 0 - 1.05 Glucose [Mass/Vol] 143 mg/dL above high threshold 74 - 99 [facility] Work Phone: Potassium [Moles/Vol] 4.0 mmol/L 3.5 - 5.3 [facility] Work Phone: Sodium [Moles/Vol] 136 mmol/L 136 - 145 [facility] Work Phone: Urea nitrogen [Mass/Vol] 20 mg/dL 6 - 23 [facility] Work Phone: No Panel Informationon 12-01 69 {mL/min/1.73m2} >90 [facility] Work Phone: Comment on above: CALCULATIONS OF HANNAH MATED GFR ARE PERFORMED USING THE 2020 CKD-EPI STUDY REFIT EQUATION WITHOUT THE RACE VARIABLE FOR THE IDMS-TRACEABLE CREATININE METHODS.https://jasn.asnjournals.org/content/early//A SN.5613021793 Cholesterol, Serumon 022 Cholesterol [Mass/Vol] 129 mg/dL 0 - 199 [facility] Work Phone: Comment on above: . AGE DESIRABLE BORD GLENDY HIGH HIGH 0-19 Y 0 - 169 170 - 199 >/= 200 20-24 Y 0 - 189 190 - 224 >/= 225 >24 Y 0 - 199 200 - 239 >/= 240 All ranges are based on fasting samples. Specific therapeutic targets will vary based on patient-specific cardiac risk.. Pediatric guidelines reference:Pediatrics 2011, 128(S5). Adult guidelines reference: NCEP ATPIII Guidelines, BILLY 2001, 258:2486-97. Venipuncture immediately after or during the administration of Metamizole may lead to falsely low results. Testing should be performed immediately prior to Metamizole dosing. Hemoglobin A1Con 09-14-2021 Glucose [Mass/Vol] 148 mg/dL [facility] Work Phone: HbA1c (Bld) [Mass fraction] 6.8 % Abnormal [facility] Work Phone: Comment on above: Diagnosis of Diabete s-Adults Non-Diabetic: < or = 5.6% Increased risk for developing diabetes: 5.7-6.4% Diagnostic of diabetes: > or = 6.5%. Monitoring of Diabetes Age (y) Therapeutic Goal (%) Adults: >18 <7.0 Pediatrics: 13-18 <7.5 7-12 <8.0 0- 6 7.5-8.5 [place] [employer]. Diabetes Care 33(S1), Apr 2009. Laboratory - Chemistry and C hemistry - challengeon 09-14-2021 Albumin BCP dye [Mass/Vol] 3.7 g/dL 3.4 - 5.0 [facility] Work Phone: ALP [Catalytic activity/Vol] 97 U/L 33 - 136 [facility] Work Phone: [phone] ALT With P-5'-P [Catalytic activity/Vol] 13 U/L 7 - 45 [facility] Work Phone: [phone] Comment on above: Patients treated wit h Sulfasalazine may generate falsely decreased results for ALT. Anion gap [Moles/Vol] 12 mmol/L 10 - 20 [facility] Work Phone: [phone] AST With P-5'-P [Catalytic activity/Vol] 15 U/L 9 - 39 [facility] Work Phone: Bilirubin [Mass/Vol] 0.3 mg/dL 0.0 - 1.2 [facility] Work Phone: Calcium [Mass/Vol] 9.1 mg/dL 8.6 - 10.3 [facility] Work Phone: Chloride [Moles/Vol] 100 mmol/L 98 - 107 [facility] Work Phone: CO2 [Moles/Vol] 29 mmol/L 21 - 32 [facility] Work Phone: Creatinine [Mass/Vol] 0.81 mg/dL See Below [facility] Work Phone: [phone] Comment on above: Reference Range: 0.5 0 - 1.05 Glucose [Mass/Vol] 96 mg/dL 74 - 99 [facility] Work Phone: Potassium [Moles/Vol] 3.1 mmol/L below low threshold 3.5 - 5.3 [facility] Work Phone: Protein [Mass/Vol] 7.0 g/dL 6.4 - 8.2 [facility] Work Phone: Sodium [Moles/Vol] 138 mmol/L 136 - 145 [facility] Work Phone: Urea nitrogen [Mass/Vol] 24 mg/dL above high threshold 6 - 23 [facility] Work Phone: Laboratory - Drug toxicology on 09-14-2021 Amphetamines Screen Ql (U) Negative NEGATIVE [facility] Work Phone: Comment on above: CUTOFF LEVEL: 500 NG /ML Cross-reactivity has been reported with high concentrations of the following drugs: buproprion, chloroquine, chlorpromazine, ephedrine, mephentermine, fenfluramine, phentermine, phenylpropanolamine, pseudoephedrine, and propranolol. Barbiturates Screen Ql (U) Negative NEGATIVE [facility] Work Phone: Comment on above: CUTOFF LEVEL: 200 NG /ML Benzodiazepines Ql (U) Negative NEGATIVE [facility] Work Phone: Comment on above: CUTOFF LEVEL: 200 NG /ML Benzoylecgonine Screen Ql (U) Negative NEGATIVE [facility] Work Phone: Comment on above: CUTOFF LEVEL: 150 NG /ML Cannabinoids Screen Ql (U) Negative NEGATIVE [facility] Work Phone: Comment on above: CUTOFF LEVEL: 50 NG/ ML Methadone Screen Ql (U) Negative NEGATIVE [facility] Work Phone: Comment on above: CUTOFF LEVEL: 150 NG /ML The metabolite E-twpzs-omdheqyxixyznd (LAAM) is not detected by this method in concentrations that would be found in the urine of patients on LAAM therapy. Opiates Screen Ql (U) Negative NEGATIVE [facility] Work Phone: Comment on above: CUTOFF LEVEL: 300 NG /ML The opiate screen does not detect fentanyl, meperidine, or tramadol. Oxycodone is not consistently detected (refer to Oxycodone Screen, Urine result). oxyCODONE+oxyMORphone Screen Ql (U) Negative NEGATIVE [facility] Work Phone: Comment on above: CUTOFF LEVEL: 100 NG /ML This test will accurately detect both oxycodone and oxymorphone. Phencyclidine Ql (U) Negative NEGATIVE [facility] Work Phone: Comment on above: CUTOFF LEVEL: 25 NG/ ML Cross-reactivity has been reported with dextromethorphan. No Panel Informationon 09-14 76 {mL/min/1.73m2} >90 [facility] Work Phone: Comment on above: CALCULATIONS OF HANNAH MATED GFR ARE PERFORMED USING THE 2020 CKD-EPI STUDY REFIT EQUATION WITHOUT THE RACE VARIABLE FOR THE IDMS-TRACEABLE CREATININE METHODS.https://jasn.asnjournals.org/content/early/A .6134949171 Negative NEGATIVE [facility] Work Phone: Comment on above: CUTOFF LEVEL: 1 NG/M L The performance characteristics of this test have been determined by the individual laboratory site where testing is performed. This test has not been cleared or approved by the FDA; however, the FDA has determined that such clearance is not necessary. SEE BELOW [facility] Work Phone: Comment on above: Drug screen results are presumptive and should not be used to assess compliance with prescribed medication. Definitive confirmatory drug testing has been added to this sample for any positive screen result and will be reported separately. .Toxicology screening results are reported qualitatively. The concentration must be greater than or equal to the cutoff to be reported as positive. The concentration at which the screening test can detect an individual drug or metabolite varies. The absence of expected drug(s) and/or drug metabolite(s) may indicate non-compliance, inappropriate timing of specimen collection relative to drug administration, poor drug absorption, diluted/adulterated urine, or limitations of testing. For medical purposes only; not valid for forensic use. .Interpretive questions should be directed to the laboratory medical directors. Triglycerides, Serumon 09-14 Triglyceride [Mass/Vol] 169 mg/dL above high threshold 0 - 149 [facility] Work Phone: Comment on above: . AGE DESIRABLE BORD GLENDY HIGH HIGH VERY HIGH 0 D-90 D 19 - 174 ---- ---- ----91 D- 9 Y 0 - 74 75 - 99 >/= 100 ---- 10-19 Y 0 - 89 90 - 129 >/= 130 ---- 20-24 Y 0 - 114 115 - 149 >/= 150 ---- >24 Y 0 - 149 150 - 199 200- 499 >/= 500. Venipuncture immediately after or during the administration of Metamizole may lead to falsely low results. Testing should be performed immediately prior to Metamizole dosing. Office Visiton 09-01-2021 Follow-up visit Diagnoses/Problems Asthma (493.90) (J45.909) Atrial fibrillation (427.31) (I48.91) Anxiety (300.00) (F41.9) Diabetes mellitus type 2, controlled (250.00) (E11.9) [facility] prescription benzodiazepine use (V58.69) (Z79.899) Neurodermatitis (698.3) (L28.0) Venous stasis ulcer with varicose veins of lower extremity (454.0) (I83.009,L97.909) Lymphedema of leg (457.1) (I89.0) Medication management (V58.69) (Z79.899) Depression, major, single episode, moderate (296.22) (F32.1) Hyperlipidemia (272.4) (E78.5) Generalized weakness (780.79) (R53.1) Morbid obesity with BMI of 50.0-59.9, adult (278.01,V85.43) (E66.01,Z68.43) 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 (250.40,585.3) (E11.22,N18.30) Vitamin D deficiency (268.9) (E55.9) Weakness of both lower extremities (729.89) (R29.898) Orders Asthma Start: Albuterol Sulfate HFA 108 (90 Base) MCG/ACT Inhalation Aerosol Solution (ProAir HFA); INHALE 2 PUFFS EVERY 4 HOURS NEEDED watermaster prescription benzodiazepine use Drug Screen, Urine With Reflex To Confirmation; Status:Active; Requested for:01Sep2021; Medication management Follow-up visit in 3 months Outpatient Follow-up Status: Hold For - Scheduling Requested for: 01Sep2021 Home Care Referral Evaluation and Treatment Homebound, venous stasis and neurodermatitis ulcers. Blood work Status: Hold For - Scheduling Requested for: 01Sep2021 Call Results To: : [phone] if urgent Fax Results To: : [phone] Dr Mcdaniel Lab Frequency: : every 3-6 months Lab Draw Start Date: : 06Sep2021 Specific Labs To Be Drawn : CMP, cholesterol, TG, A1C ,urine drug screen Labs: Must have a SN ordered to have labs drawn : Yes Home Health Aide: Must have ordered SN, PT or ST to have WOOD TILE INSTALLATION HELPER : No Server Developer: Must have ordered SN, PT or ST to have PRINT COLOR MATCHER : No Occupational Therapy: Must have ordered SN, PT or ST to have OT : No Speech Therapy: Evaluation/Treat : No Physical Therapy: Evaluation/Treatment/Iman e Safety Assess : No Boss Management: : No Is patient/caregiver willing to learn wound care? : Yes Wound Care Frequency : assess every 1-2 weeks . Wound Care Location : arms and legs Wound Order : venous stasis ulcers and neurodermatis on arms and legs Wound Care: : Yes Other Specific Nursing Orders (Ostomy Care or Enteral Feeding) : No Medication Instruction and Adherence : Yes Cardiopulmonary Assess, Vital Signs, Disease Teaching : Yes Intermediate: : Yes Date of Brtz-zg-[id number] Encounter: (Must be 90 days prior to start of care, if Telehealth must be Audio/Visual). : 01Sep2021 Homebound Status Reason: : Impaired mobility, instability, balance issues Homebound Status (Patient must be homebound if they have Medicare or commercial insurance, Not required for Medicaid) : Yes Requested Start of Care Date : >48 Hours Provider Impressions [facility] needed to draw blood and other labs as well as to assess wounds on arms and legs for infection periodically. Also check on DM management Chief Complaint An interactive audio and video telecommunication system which permits real time communications between the patient (at the originating site) and provider (at the distant site) was utilized to provide this telehealth service. Verbal consent was requested and obtained from DARYN SHAH on this date, 09/01/2021 11:30 AM , for a telehealth visit. [facility] certification F2F History of Present IllnessHas changed [facility] companies and needs new certification. She continues to have following chronic conditions. She is homebound due to generalized weakness and back pain. She cannot get into her van due to being too high for slide board. Her car needs fixed. Asthma - has been good on no meds. Cough for a month. She did get a -Z-Frantz. Finished Prednisone burst. Would like to try an inhaler. Cough seem related to stress as well. Atrial Fibrillation - not noted. Has had phone visit with Dr Valdivia in April. No chest pain or palpitations. BMP WNL except GFR of 60 and BS 239 n June Benign essential hypertension and CKD III - Med works well without side effects. Home blood pressure 106/65 at home. GFR 60 last time. No Chest pain, Dyspnea, orthopnea, palpitations, numbness, weakness, claudication, or double vision/ loss of vision. Edema is better with the hospital bed Depressive disorder - seems to be in a good phase now that she can get out. She was with palliative care but no longer and insurance would like to get someone for [facility]. 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 She is realizing that she cannot do anything about many of the things. PHQ-9 score of 8 last time. Activity- she gets in Wheelchair. But not every day. Diabetes - has been low 100s when she checks. A1C 6.1% last time. Says in the past was on bid Metformin but then on daily and off. Some blurring and needs to get to eye doctor still. Tingling in fingers and toes. Lights with circles around them so thinks cataracts or macular degeneration. No sores on feet or bu (more content not included)... Normal [employer] Tobacco Screening.on 022 Fall risk assessment a) No falls within the last year -[facility] Work Phone: Tobacco use status CP b) No [facility] Work Phone: Laboratory - Molecular patho logyon 07-25-2021 Noninvasive colorectal cancer DNA and occult blood screening Jd (Stl) [Interp] Negative Negative [facility] Work Phone: Comment on above: [employer] (CLIA #:[id number])[address] [place] [address] MILLA PICHARDO , Clinical Laboratory Medical DirectorNEGATIVE TEST RESULT. A negative Cologuard result indicates a low likelihood that a colorectal cancer (CRC) or advanced adenoma (adenomatous polyps with more advanced pre-malignant features) is present. The chance that a person with a negative Cologuard test has a colorectal cancer is less than 1 in 1500 (negative predictive value >99.9%) or has an advanced adenoma is less than 5.3% (negative predictive value 94.7%). These data are based on a prospective cross-sectional study of 10,000 individuals at average risk for colorectal cancer who were screened with both Cologuard and colonoscopy. (Sindhu Judd et al, N Engl J Med 2014;370(14):3673-2457) The normal value (reference range) for this assay is negative.COLOGUARD RE-SCREENING RECOMMENDATION: Periodic colorectal cancer screening is an important part of preventive healthcare for asymptomatic individuals at average risk for colorectal cancer. Following a negative Cologuard result, the [place] [employer] and U.S. Multi-Society Task Force screening guidelines recommend a Cologuard re-screening interval of 3 years. References: [place] [employer] Guideline for Colorectal Cancer Screening: https://www.cancer.org/cancer/cxhwg-ivpplc-rwscfx/detection-casi gnosis-staging/acs-recommendations.html.; Quoc SY, Berna SILVA, Gaetano KwokK, Colorectal Cancer Screening: Recommendations for Physicians and Patients from the U.S. Multi-Society Task Force on Colorectal Cancer Screening , Am J Gastroenterology 2017; 112:2673-4713.TEST DESCRIPTION: Composite algorithmic analysis of stool DNA-biomarkers with hemoglobin immunoassay. Quantitative values of individual biomarkers are not reportable and are not associated with individual biomarker result reference ranges. Cologuard is intended for colorectal cancer screening of adults of either sex, 45 years or older, who are at average-risk for colorectal cancer (CRC). Cologuard has been approved for use by the U.S. FDA. The performance of Cologuard was established in a cross sectional study of average-risk adults aged 50-84. Cologuard performance in patients ages 45 to 49 years was estimated by sub-group analysis of near-age groups. Colonoscopies performed for a positive result may find as the most clinically significant lesion: colorectal cancer [4.0%], advanced adenoma (including sessile serrated polyps greater than or equal to 1cm diameter) [20%] or non- advanced adenoma [31%]; or no colorectal neoplasia [45%]. These estimates are derived from a prospective cross-sectional screening study of 10,000 individuals at average risk for colorectal cancer who were screened with both Cologuard and colonoscopy. (Sindhu Drake al, N Engl J Med 2014;370(14):4893-6373.) Cologuard may produce a false negative or false positive result (no colorectal cancer or precancerous polyp present at colonoscopy follow up). A negative Cologuard test result does not guarantee the absence of CRC or advanced adenoma (pre-cancer). The current Cologuard screening interval is every 3 years. ([place] [employer] and U.S. Multi-Society Task Force). Cologuard performance data in a 10,000 patient pivotal study using colonoscopy as the reference method can be accessed at the following location: www.Kabongo/results. Additional description of the Cologuard test process, warnings and precautions can be found at www.cologuard.Teleus. Laboratory - Molecular patho logyon 06-10-2021 Noninvasive colorectal cancer DNA and occult blood screening Jd (Stl) [Interp] Cancelled - Duplicate Order [facility] Work Phone: Office Visiton 06-09-2021 Follow-up visit Diagnoses/Problems Hyperlipidemia (272.4) (E78.5) Asthma (493.90) (J45.909) Atrial fibrillation (427.31) (I48.91) Anxiety (300.00) (F41.9) Benign essential hypertension (401.1) (I10) Diabetes mellitus type 2, controlled (250.00) (E11.9) Generalized weakness (780.79) (R53.1) Neurodermatitis (698.3) (L28.0) Depression, major, single episode, moderate (296.22) (F32.1) Lumbar facet arthropathy (721.3) (M47.816) Lymphedema of leg (457.1) (I89.0) Vitamin D deficiency (268.9) (E55.9) 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 (250.40,585.3) (E11.22,N18.30) Primary osteoarthritis of both knees (715.16) (M17.0) Personal history of colonic polyps (V12.72) (Z86.010) Morbid obesity with BMI of 50.0-59.9, adult (278.01,V85.43) (E66.01,Z68.43) Screen for colon cancer (V76.51) (Z12.11) Screening mammogram, encounter for (V76.12) (Z12.31) Orders Anxiety Renew: Venlafaxine HCl ER 75 MG Oral Capsule Extended Release 24 Hour; TAKE 1 CAPSULE Daily Benign essential hypertension Renew: Atenolol 100 MG Oral Tablet; TAKE 0.5 TABLET Twice daily Renew: Lisinopril 5 MG Oral Tablet; Take 1 tablet daily Renew: Triamterene-HCTZ 37.5-25 MG Oral Tablet; TAKE 1 TABLET DAILY Diabetes mellitus type 2, controlled Renew: Glimepiride 2 MG Oral Tablet; TAKE 1 TABLET DAILY WITH BREAKFAST Comprehensive Metabolic Panel; Status:Active; Requested for:09Sep2021; Renew: metFORMIN HCl ER 500 MG Oral Tablet Extended Release 24 Hour; TAKE 1 TABLET DAILY DIRECTED Hemoglobin A1C; Status:Active; Requested for:09Sep2021; Hyperlipidemia Start: Rosuvastatin Calcium 10 MG Oral Tablet; Take 1 tablet daily Cholesterol, Serum; Status:Active; Requested for:09Sep2021; Triglycerides, Serum; Status:Active; Requested for:09Sep2021; Medication management Follow-up visit in 3 months Outpatient Follow-up Status: Canceled Personal history of colonic polyps Follow-up visit in 3 months Outpatient Follow-up Status: Hold For - Scheduling Requested for: 09Jun2021 Screen for colon cancer Cologuard Screening; Status:Active; Requested for:09Jun2021; Screening mammogram, encounter for Mamm - Screening Mammogram w/ Tomosynthesis; Status:Hold For - Scheduling; Requested for:09Jun2021; Radiologist to Determine Optimal Study : Y What are the patient's signs and symptoms ? : Annual Screening Mammogram Chief Complaint A telephone visit (audio only) between the patient (at the originating site) and the provider (at the distant site) was utilized to provide this telehealth service. Verbal consent was requested and obtained from DARYN SHAH on this date, 06/09/2021 01:00 PM , for a telehealth visit. [facility] Adult Risk Screening Depression/Suicide Screening: During the past 2 weeks, the patient felt down, depressed or hopeless. During the past 2 weeks, the patient felt little interest or pleasure in doing things. PHQ-9 Depression Scale: 1. Little interest or pleasure in doing things - more than half the days 2. Feeling down, depressed or hopeless - more than half the days 3. Trouble falling asleep or sleeping too much - not at all 4. Feeling tired or having little energy - more than half the days 5. Poor appetite or overeating - more than half the days 6. Feeling bad about self or failure or letting others down - not at all 7. Trouble concentrating on things - not at all 8. Moving / speaking slowly or fidgety / restless - not at all 9. Thought would be better off or hurting self - not at all Total Score: 8/27 Severity of depression is mild. How difficult have these problems made it for you to do your work, take care of things at home, or get along with people? Somewhat difficult. History of Present Illness Asthma - has been good on no meds. Atrial Fibrillation - not noted. Has had phone visit with Dr May in April. No chest pain or palpitations. BMP WNL except. GFR of 60. Benign essential hypertension and CKD III - Med works well without side effects. Home blood pressure 112/60 at home. GFR 60 this time. No Chest pain, Dyspnea, palpitations, numbness, weakness, claudication, or double vision/ loss of vision. Edema is better with the hospital bed Depressive disorder - seems to be in a good phase now that she can get out. People in her home for palliative care but no longer. 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 Done with all of that. She is realizing that she cannot do anything about many of the things. PHQ-9 score of 8. Activity- she gets in Wheelchair. But not every day. Diabetes - has been low 100s when she checks. A1C 6.1%. Says in the past was on bid Metformin but now only once a day. Some blurring and needs to get to eye doctor still. Tingling in fingers and toes. Lights with circles around them so thinks cataracts or macular degeneration. No sores on feet or buttocks. Has a hospital bed that really helps. Eyes are dry and moisturizing drops. But still needs to get in. But can drop the metformin and will check in a few mon (more content not included)... Normal [facility] Tobacco Screening.on 022 Adult depression screening assessment Yes [facility] Work Phone: Fall risk assessment a) No falls within the last year [facility] Work Phone: Tobacco use status [facility] b) No [facility] Work Phone: Hemoglobin A1Con 06-07-2021 Glucose [Mass/Vol] 128 mg/dL [facility] Work Phone: HbA1c (Bld) [Mass fraction] 6.1 % Abnormal [facility] Work Phone: Comment on above: Diagnosis of Diabete s-Adults Non-Diabetic: < or = 5.6% Increased risk for developing diabetes: 5.7-6.4% Diagnostic of diabetes: > or = 6.5%. Monitoring of Diabetes Age (y) Therapeutic Goal (%) Adults: >18 <7.0 Pediatrics: 13-18 <7.5 7-12 <8.0 0- 6 7.5-8.5 [place] [employer]. Diabetes Care 33(S1), Apr 2009. Laboratory - Chemistry and C hemistry - challengeon 06-07-2021 Albumin BCP dye [Mass/Vol] 3.5 g/dL 3.4 - 5.0 [facility] Work Phone: ALP [Catalytic activity/Vol] 96 U/L 33 - 136 [facility] Work Phone: ALT With P-5'-P [Catalytic activity/Vol] 12 U/L 7 - 45 [facility] Work Phone: Comment on above: Patients treated wit h Sulfasalazine may generate falsely decreased results for ALT. Anion gap [Moles/Vol] 15 mmol/L 10 - 20 [facility] Work Phone: AST With P-5'-P [Catalytic activity/Vol] 17 U/L 9 - 39 [facility] Work Phone: Bilirubin [Mass/Vol] 0.3 mg/dL 0.0 - 1.2 [facility] Work Phone: Calcium [Mass/Vol] 9.3 mg/dL 8.6 - 10.3 [facility] Work Phone: Chloride [Moles/Vol] 97 mmol/L below low threshold 98 - 107 [facility] Work Phone: CO2 [Moles/Vol] 28 mmol/L 21 - 32 [facility] Work Phone: Creatinine [Mass/Vol] 0.99 mg/dL See Below [facility] Work Phone: Comment on above: Reference Range: 0.5 0 - 1.05 Glucose [Mass/Vol] 239 mg/dL above high threshold 74 - 99 [facility] Work Phone: Potassium [Moles/Vol] 4.1 mmol/L 3.5 - 5.3 [facility] Work Phone: Protein [Mass/Vol] 6.7 g/dL 6.4 - 8.2 [facility] Work Phone: Sodium [Moles/Vol] 136 mmol/L 136 - 145 [facility] Work Phone: Urea nitrogen [Mass/Vol] 22 mg/dL 6 - 23 [facility] Work Phone: Laboratory - Hematology and Cell countson 06-07-2021 Erythrocyte distribution width (RBC) [Ratio] 15.8 % above high threshold See Below [facility] Work Phone: Comment on above: Reference Range: 11. 5 - 14.5 Hematocrit (Bld) [Volume fraction] 35.8 % below low threshold See Below [facility] Work Phone: Comment on above: Reference Range: 36. 0 - 46.0 Hemoglobin (Bld) [Mass/Vol] 11.3 g/dL below low threshold See Below [facility] Work Phone: Comment on above: Reference Range: 12. 0 - 16.0 MCHC (RBC) [Mass/Vol] 31.4 g/dL below low threshold See Below [facility] Work Phone: Comment on above: Reference Range: 32. 0 - 36.0 MCV (RBC) [Entitic vol] 85 fL 80 - 100 [facility] Work Phone: Platelets (Bld) [#/Vol] 313 10*3/uL 150 - 450 [facility] Work Phone: RBC (Bld) [#/Vol] 4.23 {x10E12/L} See Below [facility] Work Phone: Comment on above: Reference Range: 4.0 0 - 5.20 WBC (Bld) [#/Vol] 13.8 10*3/uL above high threshold 4.4 - 11.3 [facility] Work Phone: Lipid Panelon 06-07-2021 Cholesterol [Mass/Vol] 193 mg/dL 0 - 199 [facility] Work Phone: Comment on above: . AGE DESIRABLE BORD GLENDY HIGH HIGH 0-19 Y 0 - 169 170 - 199 >/= 200 20-24 Y 0 - 189 190 - 224 >/= 225 >24 Y 0 - 199 200 - 239 >/= 240 All ranges are based on fasting samples. Specific therapeutic targets will vary based on patient-specific cardiac risk.. Pediatric guidelines reference:Pediatrics 2011, 128(S5). Adult guidelines reference: NCEP ATPIII Guidelines, BILLY 2001, 258:2486-97. Venipuncture immediately after or during the administration of Metamizole may lead to falsely low results. Testing should be performed immediately prior to Metamizole dosing. Cholesterol in HDL [Mass/Vol] 45.0 mg/dL [facility] Work Phone: Comment on above: . AGE VERY LOW LOW N ORMAL HIGH 0-19 Y < 35 < 40 40-45 ---- 20-24 Y ---- < 40 >45 ---- >24 Y ---- < 40 40-60 >60. Cholesterol in LDL [Mass/Vol] 108 mg/dL above high threshold 0 - 99 [facility] Work Phone: Comment on above: . NEAR BORD AGE TESS RABLE OPTIMAL HIGH HIGH VERY HIGH 0-19 Y 0 - 109 --- 110-129 >/= 130 ---- 20-24 Y 0 - 119 --- 120-159 >/= 160 ---- >24 Y 0 - 99 100-129 130-159 160-189 >/=190. Cholesterol.total/Chol esterol in HDL [Mass ratio] 4.3 {ratio} [facility] Phone: Comment on above: REF VALUESDESIRABLE < 3.4HIGH RISK > 5.0 Triglyceride [Mass/Vol] 198 mg/dL above high threshold 0 - 149 [facility] Work Phone: Comment on above: . AGE DESIRABLE BORD GLENDY HIGH HIGH VERY HIGH 0 D-90 D 19 - 174 ---- ---- ----91 D- 9 Y 0 - 74 75 - 99 >/= 100 ---- 10-19 Y 0 - 89 90 - 129 >/= 130 ---- 20-24 Y 0 - 114 115 - 149 >/= 150 ---- >24 Y 0 - 149 150 - 199 200- 499 >/= 500. Venipuncture immediately after or during the administration of Metamizole may lead to falsely low results. Testing should be performed immediately prior to Metamizole dosing. Lipid Panel 40 mg/dL 0 - 40 [facility] Work Phone: No Panel Informationon 06-07 60 {mL/min/1.73m2} >90 [facility] Work Phone: Comment on above: CALCULATIONS OF HANNAH MATED GFR ARE PERFORMED USING THE 2020 CKD-EPI STUDY REFIT EQUATION WITHOUT THE RACE VARIABLE FOR THE IDMS-TRACEABLE CREATININE METHODS.https://jasn.asnjournals.org/content//A .7026139314 Vitamin B12, Serumon 022 Cobalamin (Vitamin B12) [Mass/Vol] 697 pg/mL 211 - 911 [facility] Work Phone: Vitamin D 25-Hydroxyon 06-07 25-hydroxyvitamin D3 [Mass/Vol] 30 ng/mL [facility] Work Phone: Comment on above: .DEFICIENCY: < 20 NG /MLINSUFFICIENCY: 20-29 NG/MLSUFFICIENCY: 30-100 NG/MLTHIS ASSAY ACCURATELY QUANTIFIES THE SUM OFVITAMIN D3, 25-HYDROXY AND VIT D2,25-HYDROXY. Laboratory - Chemistry and C hemistry - challengeon 02-04-2021 Creatinine (Body fld) [Mass/Vol] 65.0 mg/dL [facility] Work Phone: Comment on above: A urine creatinine r esult >= 20 mg/dL is considered valid without suspicion of dilution. Samples with results below this range will automatically reflex to specific gravity testing to verify specimen integrity. Laboratory - Drug toxicology on 02-04-2021 1-Hydroxymidazolam Confirm (U) [Mass/Vol] <25 Cutoff <25 [facility] Work Phone: 4-Apjiuyggst-2,5-Dimet hyl-3,3-Diphenylpyrrol idine (EDDP) Confirm (U) [Mass/Vol] <25 Cutoff <25 [facility] Work Phone: Comment on above: The performance klaus acteristics of the Methadone Confirmation, Urine has been validated by the individual laboratory site where testing is performed. It has not been cleared or approved by the FDA. However the FDA has determined that such clearance or approval is not necessary. Our Laboratory is certified under the Clinical Laboratory Improvement Amendments of 1988 (CLIA) as qualified to perform high complexity clinical laboratory testing. 6-Monoacetylmorphine (6-EDDIE) Confirm (U) [Mass/Vol] <25 Cutoff <25 [facility] Work Phone: 7-Aminoclonazepam Confirm (U) [Mass/Vol] <25 Cutoff <25 [facility] Work Phone: Alpha hydroxyalprazolam Confirm (U) [Mass/Vol] <25 Cutoff <25 [facility] Work Phone: ALPRAZolam Confirm (U) [Mass/Vol] <25 Cutoff <25 [facility] Work Phone: Amphetamines Screen Ql (U) Negative NEGATIVE [facility] Work Phone: Comment on above: CUTOFF LEVEL: 500 NG /ML Cross-reactivity has been reported with high concentrations of the following drugs: buproprion, chloroquine, chlorpromazine, ephedrine, mephentermine, fenfluramine, phentermine, phenylpropanolamine, pseudoephedrine, and propranolol. Barbiturates Screen Ql (U) Negative NEGATIVE [facility] Work Phone: Comment on above: CUTOFF LEVEL: 200 NG /ML Benzoylecgonine Screen Ql (U) Negative NEGATIVE [facility] Work Phone: Comment on above: CUTOFF LEVEL: 150 NG /ML Cannabinoids Screen Ql (U) Positive Abnormal NEGATIVE [facility] Work Phone: Comment on above: CUTOFF LEVEL: 50 NG/ ML Carboxy tetrahydrocannabinol (U) [Mass/Vol] >500 [facility] Work Phone: Comment on above: INTERPRETIVE INFORMA TION: THC Metabolite, Urine, QuantitativeMethodology: Quantitative Liquid Chromatography-Tandem Mass SpectrometryPositive cutoff: 15 ng/mLFor medical purposes only; not valid for forensic use.The drug analyte detected in this assay, 9-carboxy THC, is a metabolite of kdgis-1-jzesaqkgqjeozweqqyek (THC). Detection of 9-carboxy THC suggests use of, or exposure to, a product containing THC. This test cannot distinguish between prescribed or non-prescribed forms of THC, nor can it distinguish between active or passive use. The 9-carboxy THC metabolite can be detected in urine for several weeks. Normalization of results to creatinine concentration can help document elimination or suggest recent use, when specimens are collected at least one week apart.This test was developed and its performance characteristics determined by [employer]. It has not been cleared or approved by the US Food and Drug Administration. This test was performed in a CLIA certified laboratory and is intended for clinical purposes.Performed By: [employer] [place] [id number] Director: Pearl Deng MD [email or web address] Confirm (U) [Mass/Vol] <25 Cutoff <25 [facility] Work [facility]: clonazePAM Confirm (U) [Mass/Vol] <25 [facility]off <[facility] Codeine Confirm (U) [Mass/Vol] <50 Cutoff <50 [facility] Work [facility]: diazePAM Confirm (U) [Mass/Vol] <25 Cutoff <25 [facility] Work Phone: fentaNYL Confirm (U) [Mass/Vol] <2.5 Cutoff<2.5 [facility] Work Phone: HYDROcodone Confirm (U) [Mass/Vol] <25 Cutoff <25 [facility] Work Phone: HYDROmorphone Confirm (U) [Mass/Vol] <25 Cutoff <25 [facility] Work Phone: LORazepam Confirm (U) [Mass/Vol] 544 ng/mL Abnormal Cutoff <25 [facility] Work Phone: Comment on above: Consistent with use of a drug containing lorazepam, such as Ativan. Methadone Confirm (U) [Mass/Vol] <25 Cutoff <25 [facility] Work Phone: Midazolam Confirm (U) [Mass/Vol] <25 Cutoff <25 [facility]: Morphine Confirm (U) [Mass/Vol] <50 Cutoff <50 [facility] Work Phone: Nordiazepam Confirm (U) [Mass/Vol] <25 Cutoff <25 [facility] Work Phone: Norfentanyl Confirm (U) [Mass/Vol] <2.5 Cutoff<2.5 [facility] Work Phone: Comment on above: The performance klaus acteristics of the Fentanyl Confirmation, Urine has been validated by the individual laboratory site where testing is performed. It has not been cleared or approved by the FDA. However the FDA has determined that such clearance or approval is not necessary. Our Laboratory is certified under the Clinical Laboratory Improvement Amendments of 1988 (CLIA) as qualified to perform high complexity clinical laboratory testing. Norhydrocodone Confirm (U) [Mass/Vol] <25 Cutoff <25 [facility] Work Phone: Noroxycodone Confirm (U) [Mass/Vol] <25 Cutoff <25 [facility] Work Phone: Nortramadol (U) [Mass/Vol] <50 Cutoff <50 [facility] Work Phone: Comment on above: The performance klaus acteristics of the Tramadol Confirmation, Urine has been validated by the individual laboratory site where testing is performed. It has not been cleared or approved by the FDA. However the FDA has determined that such clearance or approval is not necessary. Our Laboratory is certified under the Clinical Laboratory Improvement Amendments of 1988 (CLIA) as qualified to perform high complexity clinical laboratory testing. Oxazepam Confirm (U) [Mass/Vol] <25 Cutoff <25 [facility] Work Phone: oxyCODONE Confirm (U) [Mass/Vol] <25 Cutoff <25 [facility] Work Phone: oxyMORphone Confirm (U) [Mass/Vol] <25 Cutoff <25 [facility] Work Phone: Comment on above: The performance lkaus acteristics of the Opiate Confirmation, Urine has been validated by the individual laboratory site where testing is performed. It has not been cleared or approved by the FDA. However the FDA has determined that such clearance or approval is not necessary. Our Laboratory is certified under the Clinical Laboratory Improvement Amendments of 1988 (CLIA) as qualified to perform high complexity clinical laboratory testing. Phencyclidine Ql (U) Negative NEGATIVE [facility] Work Phone: Comment on above: CUTOFF LEVEL: 25 NG/ ML Cross-reactivity has been reported with dextromethorphan. Temazepam Confirm (U) [Mass/Vol] <25 Cutoff <25 [facility] Work Phone: Comment on above: The performance klaus acteristics of the Benzodiazepine Confirmation, Urine has been validated by the individual laboratory site where testing is performed. It has not been cleared or approved by the FDA. However the FDA has determined that such clearance or approval is not necessary. Our Laboratory is certified under the Clinical Laboratory Improvement Amendments of 1988 (CLIA) as qualified to perform high complexity clinical laboratory testing. traMADol Confirm (U) [Mass/Vol] <50 Cutoff <50 [facility] Work Phone: Zolpidem (U) [Mass/Vol] <25 Cutoff <25 [facility] Work Phone: No Panel Informationon 02-04 SEE BELOW [facility] Work Phone: Comment on above: Drug screen results are presumptive and should not be used to assess compliance with prescribed medication. Definitive confirmatory drug testing has been added to this sample for any positive screen result and will be reported separately. .Toxicology screening results are reported qualitatively. The concentration must be greater than or equal to the cutoff to be reported as positive. The concentration at which the screening test can detect an individual drug or metabolite varies. The absence of expected drug(s) and/or drug metabolite(s) may indicate non-compliance, inappropriate timing of specimen collection relative to drug administration, poor drug absorption, diluted/adulterated urine, or limitations of testing. For medical purposes only; not valid for forensic use. .Interpretive questions should be directed to the laboratory medical directors. <25 Cutoff <25 [facility] Work Phone: Comment on above: The performance klaus acteristics of the Zolpidem Confirmation, Urine has been validated by the individual laboratory site where testing is performed. It has not been cleared or approved by the FDA. However the FDA has determined that such clearance or approval is not necessary. Our Laboratory is certified under the Clinical Laboratory Improvement Amendments of 1988 (CLIA) as qualified to perform high complexity clinical laboratory testing. Tobacco Screening.on 021 Fall risk assessment b) One or more fall s in the last year [facility] Work Phone: Tobacco use status CP b) No [facility] Work Phone: Laboratory - Molecular patho logyon 11-05-2020 Noninvasive colorectal cancer DNA and occult blood screening Jd (Stl) [Interp] Cancelled - Duplicate Order [facility] Work Phone: Tobacco Screening.on 021 Fall risk assessment b) One or more fall s in the last year [facility] Work Phone: Tobacco use status CP b) No [facility] Work Phone: Tobacco Screening.on 021 Fall risk assessment b) One or more fall s in the last year [facility] Work Phone: Tobacco use status [facility] b) No [facility] Work Phone: HEMOGLOBIN A1Con 10-21-2020 Glucose [Mass/Vol] 143 mg/dL Normal [facility] Comment on above: Performed By: #### H BA1E #### [facility] [address] [place] [address] HbA1c (Bld) [Mass fraction] 6.6 % Normal [facility] Comment on above: Result Comment: Diag nosis of Diabetes-Adults Non-Diabetic: < or = 5.6% Increased risk for developing diabetes: 5.7-6.4% Diagnostic of diabetes: > or = 6.5% . Monitoring of Diabetes Age (y) Therapeutic Goal (%) Adults: >18 <7.0 Pediatrics: 13-18 <7.5 7-12 <8.0 0- 6 7.5-8.5 [place] [employer]. Diabetes Care 33(S1), Apr 2009. Performed By: #### H BA1E #### [facility] [address] [place] [address] CBCon 10-20-2020 Erythrocyte distribution width (RBC) [Ratio] 15.2 % High 11.5 - 14.5 [facility] Comment on above: Performed By: #### C BC #### [address] [id number] Hematocrit (Bld) [Volume fraction] 42.4 % Normal 36.0 - 46.0 [facility] Comment on above: Performed By: #### C BC #### [address] [id number] Hemoglobin (Bld) [Mass/Vol] 12.8 g/dL Normal 12.0 - 16.0 [facility] Comment on above: Performed By: #### C BC #### [address] [id number] MCHC (RBC) [Mass/Vol] 30.2 g/dL Low 32.0 - 36.0 [facility] Comment on above: Performed By: #### C BC #### [address] [id number] MCV (RBC) [Entitic vol] 85 fL Normal 80 - 100 [facility] Comment on above: Performed By: #### C BC #### [address] [id number] Platelets (Bld) [#/Vol] 306 10*3/uL Normal 150 - 450 [facility] Comment on above: Performed By: #### C BC #### [address] [id number] RBC 4.97 x10E12/L Normal 4.00 - 5.20 [facility] Comment on above: Performed By: #### C BC #### [address] [id number] WBC (Bld) [#/Vol] 12.9 10*3/uL High 4.4 - 11.3 [facility] Comment on above: Performed By: #### C #### [address] [id number] Hemoglobin A1Con 10-20-2020 Glucose [Mass/Vol] 143 mg/dL [facility] Work Phone: HbA1c (Bld) [Mass fraction] 6.6 % [facility] Work Phone: Comment on above: Diagnosis of Diabete s-Adults Non-Diabetic: < or = 5.6% Increased risk for developing diabetes: 5.7-6.4% Diagnostic of diabetes: > or = 6.5%. Monitoring of Diabetes Age (y) Therapeutic Goal (%) Adults: >18 <7.0 Pediatrics: 13-18 <7.5 7-12 <8.0 0- 6 7.5-8.5 [place] [employer]. Diabetes Care 33(S1), Apr 2009. Laboratory - Hematology and Cell countson 10-20-2020 Erythrocyte distribution width (RBC) [Ratio] 15.2 % above high threshold See Below [facility] Work Phone: Comment on above: Reference Range: 11. 5 - 14.5 Hematocrit (Bld) [Volume fraction] 42.4 % See Below [facility] Work Phone: Comment on above: Reference Range: 36. 0 - 46.0 Hemoglobin (Bld) [Mass/Vol] 12.8 g/dL See Below [facility] Work Phone: Comment on above: Reference Range: 12. 0 - 16.0 MCHC (RBC) [Mass/Vol] 30.2 g/dL below low threshold See Below [facility] Work Phone: Comment on above: Reference Range: 32. 0 - 36.0 MCV (RBC) [Entitic vol] 85 fL 80 - 100 [facility] Work Phone: Platelets (Bld) [#/Vol] 306 10*3/uL 150 - 450 [facility] Work Phone: RBC (Bld) [#/Vol] 4.97 {x10E12/L} See Below [facility] Work Phone: Comment on above: Reference Range: 4.0 0 - 5.20 WBC (Bld) [#/Vol] 12.9 10*3/uL above high threshold 4.4 - 11.3 [facility] Work Phone: MAGNESIUMon 10-20-2020 Magnesium [Mass/Vol] 1.50 mg/dL Low 1.60 - 2.40 [facility] Comment on above: Performed By: #### M G #### [address] [id number] Magnesium, Serumon Magnesium [Mass/Vol] 1.50 mg/dL below low threshold See Below [facility] Work Phone: Comment on above: Reference Range: 1.6 0 - 2.40 RENAL FUNCTION PANELon 10-20 Albumin [Mass/Vol] 4.0 g/dL Normal 3.4 - 5.0 [facility] Comment on above: Performed By: #### R ENAL #### [address] [id number] Anion gap [Moles/Vol] 14 mmol/L Normal 10 - 20 [facility] Comment on above: Performed By: #### R ENAL #### [address] [id number] Calcium [Mass/Vol] 9.4 mg/dL Normal 8.6 - 10.3 [facility] Comment on above: Performed By: #### R ENAL #### [address] [id number] Chloride [Moles/Vol] 98 mmol/L Normal 98 - 107 [facility] Comment on above: Performed By: #### R ENAL #### [address] [id number] Creatinine [Mass/Vol] 0.97 mg/dL Normal 0.50 - 1.05 [facility] Comment on above: Performed By: #### R ENAL #### [address] [id number] GFR- AM. 68 mL/min/1.73m2 Normal >60 [facility] Comment on above: Result Comment: CALC ULATIONS OF ESTIMATED GFR ARE PERFORMED USING THE MDRD STUDY EQUATION FOR THE IDMS-TRACEABLE CREATININE METHODS. CLIN CHEM 2007;53:766-72 Performed By: #### R ENAL #### [address] [id number] GFR-NON AM. 56 mL/min/1.73m2 Abnormal >60 [facility] Comment on above: Performed By: #### R ENAL #### [address] [id number] Glucose [Mass/Vol] 79 mg/dL Normal 74 - 99 [facility] Comment on above: Performed By: #### R ENAL #### [address] [id number] HCO3 (Bld) [Moles/Vol] 30 mmol/L Normal 21 - 32 [facility] Comment on above: Performed By: #### R ENAL #### [address] [id number] Phosphate [Mass/Vol] 3.3 mg/dL Normal 2.5 - 4.9 [facility] Comment on above: Result Comment: The performance characteristics of phosphorus testing in heparinized plasma have been validated by the individual laboratory site where testing is performed. Testing on heparinized plasma is not approved by the FDA; however, such approval is not necessary. Performed By: #### R ENAL #### [address] [id number] Potassium [Moles/Vol] 4.2 mmol/L Normal 3.5 - 5.3 [facility] Comment on above: Performed By: #### R ENAL #### [address] [id number] Sodium [Moles/Vol] 138 mmol/L Normal 136 - 145 [facility] Comment on above: Performed By: #### R ENAL #### [address] [id number] Urea nitrogen [Mass/Vol] 20 mg/dL Normal 6 - 23 [facility] Comment on above: Performed By: #### R ENAL #### [facility] [address], [place] [id number] Renal Function Panelon 10-20 Albumin BCP dye [Mass/Vol] 4.0 g/dL 3.4 - 5.0 [facility] Work Phone: Anion gap [Moles/Vol] 14 mmol/L 10 - 20 [facility] Work Phone: Calcium [Mass/Vol] 9.4 mg/dL 8.6 - 10.3 [facility] Work Phone: Chloride [Moles/Vol] 98 mmol/L 98 - 107 [facility] Work Phone: CO2 [Moles/Vol] 30 mmol/L 21 - 32 [facility] Work Phone: Creatinine [Mass/Vol] 0.97 mg/dL See Below [facility] Work Phone: Comment on above: Reference Range: 0.5 0 - 1.05 Glucose [Mass/Vol] 79 mg/dL 74 - 99 [facility] Work Phone: Phosphate [Mass/Vol] 3.3 mg/dL 2.5 - 4.9 [facility] Work Phone: Comment on above: The performance klaus acteristics of phosphorus testing in heparinized plasma have been validated by the individual laboratory site where testing is performed. Testing on heparinized plasma is not approved by the FDA; however, such approval is not necessary. Potassium [Moles/Vol] 4.2 mmol/L 3.5 - 5.3 [facility] Work Phone: Sodium [Moles/Vol] 138 mmol/L 136 - 145 [facility] Work Phone: Urea nitrogen [Mass/Vol] 20 mg/dL 6 - 23 [facility] Work Phone: Renal Function Panel 68 {mL/min/1.73m2} >60 [facility] Work Phone: Comment on above: CALCULATIONS OF HANNAH MATED GFR ARE PERFORMED USING THE MDRD STUDY EQUATION FOR THE IDMS-TRACEABLE CREATININE METHODS. CLIN CHEM 2007;53:766-72 Renal Function Panel 56 {mL/min/1.73m2} Abnormal >60 [facility] Work Phone: VITAMIN D, 25-HYDROXYon 10-07 VITAMIN D, 25-HYDROXY 20 ng/mL Abnormal [facility] Comment on above: Result Comment: . DEFICIENCY: < 20 NG/ML INSUFFICIENCY: 20-29 NG/ML SUFFICIENCY: 30-100 NG/ML THIS ASSAY ACCURATELY QUANTIFIES THE SUM OF VITAMIN D3, 25-HYDROXY AND VIT D2,25-HYDROXY. Performed By: #### V TDOH #### [address] [id number] Vitamin D 25-Hydroxyon 10-20 25-hydroxyvitamin D3 [Mass/Vol] 20 ng/mL Abnormal [facility] Work Phone: Comment on above: .DEFICIENCY: < 20 NG /MLINSUFFICIENCY: 20-29 NG/MLSUFFICIENCY: 30-100 NG/MLTHIS ASSAY ACCURATELY QUANTIFIES THE SUM OFVITAMIN D3, 25-HYDROXY AND VIT D2,25-HYDROXY. Tobacco Screening.on 021 Fall risk assessment b) One or more fall s in the last year [facility] Work Phone: Tobacco use status [facility]PHS b) No [facility] Work Phone: Metabolic Panelon 12-08-2019 Anion gap [Moles/Vol] 13 mmol/L 10 - 20 - [facility] Edwin 3 DO Work Phone: Calcium [Mass/Vol] 9.1 mg/dL 8.6 - 10.3 [facility] Edwin 3 DO Work Phone: Chloride [Moles/Vol] 99 mmol/L 98 - 107 [facility] Edwin 3 DO Work Phone: CO2 [Moles/Vol] 26 mmol/L 21 - 32 [facility] lo [facility] Edwin 3 DO Work Phone: Creatinine [Mass/Vol] 1.14 mg/dL above high threshold See Below [facility] 3 DO Work Phone: Comment on above: Reference Range: 0.5 0 - 1.05 Glucose [Mass/Vol] 153 mg/dL above high threshold 74 - 99 [facility] 3 DO Work Phone: Potassium [Moles/Vol] 3.8 mmol/L 3.5 - 5.3 MP- [facility] 3 DO Work Phone: [phone] Sodium [Moles/Vol] 134 mmol/L below low threshold 136 - 145 [facility] 3 DO Work Phone: Urea nitrogen [Mass/Vol] 32 mg/dL above high threshold 6 - 23 [facility] 3 DO Work Phone: Otheron 12-08-2019 57 {mL/min/1.73m2} Abnormal >60 [facility] Work Phone: Comment on above: CALCULATIONS OF HANNAH MATED GFR ARE PERFORMED USING THE MDRD STUDY EQUATION FOR THE IDMS-TRACEABLE CREATININE METHODS. CLIN CHEM 2007;53:766-72 47 {mL/min/1.73m2} Abnormal >60 [facility] Edwin 3 DO Work Phone: US Kidney - bilateral Please click on th e link to view the study images Normal -[facility] [place] [address] DO Work Phone: Total Protein, Urine Spoton 12-08-2019 Creatinine (U) [Mass/Vol] 162.0 mg/dL See Below -[facility] [place] [address] DO Work Phone: Comment on above: Reference Range: 20. 0 - 320.0 Protein (U) [Mass/Vol] 44 mg/dL above hig h threshold 5 - 24 -[facility] [place] [address] DO Work Phone: Protein/Creatinine (U) [Ratio] 0.27 {mg/mg_Creat} above high threshold See Below -[facility] [place] [address] DO Work Phone: Comment on above: Reference Range: 0.0 0 - 0.17 Uric Acid, Serumon 0 Urate [Mass/Vol] 8.6 mg/dL above high threshold 2.3 - 6.7 -[facility] [place] [address] DO Work Phone: Comment on above: Venipuncture immedia tely after or during the administration of Metamizole may lead to falsely low results. Testing should be performed immediately prior to Metamizole dosing. Urinalysison 12-08-2019 Appearance (U) HAZY CLEAR -[facility] [place] [address] DO Work Phone: Color (U) Yellow See Below -[facility] [place] [address] DO Work Phone: Comment on above: Reference Range: STR AW,YELLOW Glucose Ql (U) Negative NEGATIVE -[facility] [place] [address] DO Work Phone: Ketones Ql (U) Negative NEGATIVE MP-[facility] [place] [address] DO Work Phone: Leukocyte esterase Test strip Ql (U) TRACE Abnormal NEGATIVE [facility] 3 DO Work Phone: [phone] pH (U) 5.0 [pH] 5.0 - 8.0 [facility] 3 DO Work Phone: [phone] Protein (U) [Mass/Vol] 30(1+) Abnormal NEGATIVE MP -[facility] 3 DO Work Phone: [phone] RBC (U) [#/Vol] Negative NEGATIVE MP-[facility] 3 DO Work Phone: [phone] Specific gravity (U) [Rel density] 1.018 See Below [facility] 3 DO Work Phone: [phone] Comment on above: Reference Range: 1.0 05 - 1.035 Urinalysis Negative NEGATIVE [facility] 3 DO Work Phone: [phone] Urinalysis <2.0 0.0 - 1.9 [facility] 3 DO Work Phone: Urinalysis, Microscopicon Urinalysis, Microscopic 3+ Abnormal [facility] 3 DO Work Phone: Urinalysis, Microscopic 4 {/HPF} 0-5 [facility] 3 DO Work Phone: Urinalysis, Microscopic 1 {/HPF} 0-5 [facility] Edwin 3 DO Work Phone: Urinalysis, Microscopic 9 {/HPF} MP-[facility] 3 DO Work Phone: Urinalysis, Microscopic 1+ [facility] 3 DO Work Phone: Hemoglobin A1Con 10-30-2019 HbA1c (Bld) [Mass fraction] 128 {MG/DL} [facility] Work Phone: HbA1c (Bld) [Mass fraction] 6.1 % [facility] Work Phone: Comment on above: Diagnosis of Diabete s-Adults Non-Diabetic: < or = 5.6% Increased risk for developing diabetes: 5.7-6.4% Diagnostic of diabetes: > or = 6.5%. Monitoring of Diabetes Age (y) Therapeutic Goal (%) Adults: >18 <7.0 Pediatrics: 13-18 <7.5 7-12 <8.0 0- 6 7.5-8.5 [place] [employer]. Diabetes Care 33(S1), Apr 2009. Metabolic Panelon 10-30-2019 Anion gap [Moles/Vol] 12 mmol/L 10 - [address] [facility] Work Phone: Calcium [Mass/Vol] 9.2 mg/dL 8.6 - 10.3 [facility] [facility] Work Phone: Chloride [Moles/Vol] 103 mmol/L 98 - 107 [facility] Work Phone: CO2 [Moles/Vol] 26 mmol/L 21 - 32 [facility] Work Phone: Creatinine [Mass/Vol] 1.36 mg/dL above high threshold See Below [facility] Work Phone: Comment on above: Reference Range: 0.5 0 - 1.05 Glucose [Mass/Vol] 148 mg/dL above high threshold 74 - 99 [facility] Work Phone: Potassium [Moles/Vol] 3.9 mmol/L 3.5 - 5.3 [facility] Work Phone: Sodium [Moles/Vol] 137 mmol/L 136 - 145 [facility] Work Phone: Urea nitrogen [Mass/Vol] 27 mg/dL above high threshold 6 - 23 [facility] Work Phone: Otheron 10-30-2019 1-Hydroxymidazolam Confirm (U) [Mass/Vol] <25 Cutoff <25 [facility] Work Phone: 0-Mmxelolgaz-4,5-Dimet hyl-3,3-Diphenylpyrrol idine (EDDP) Confirm (U) [Mass/Vol] <25 Cutoff <25 [facility] Work Phone: Comment on above: The performance klaus acteristics of the Methadone Confirmation, Urine has been validated by the individual laboratory site where testing is performed. It has not been cleared or approved by the FDA. However the FDA has determined that such clearance or approval is not necessary. Our Laboratory is certified under the Clinical Laboratory Improvement Amendments of 1988 (CLIA) as qualified to perform high complexity clinical laboratory testing. 6-Monoacetylmorphine (6-EDDIE) Confirm (U) [Mass/Vol] <25 Cutoff <25 [facility] Work Phone: 7-Aminoclonazepam Confirm (U) [Mass/Vol] <25 Cutoff <25 [facility] Work Phone: Alpha hydroxyalprazolam Confirm (U) [Mass/Vol] <25 Cutoff <25 [facility] Work Phone: Alprazolam Confirm (U) [Mass/Vol] <25 Cutoff <25 [facility] Work Phone: Amphetamines Screen Ql (U) Negative NEGATIVE [facility] Work Phone: Comment on above: CUTOFF LEVEL: 500 NG /ML Cross-reactivity has been reported with high concentrations of the following drugs: buproprion, chloroquine, chlorpromazine, ephedrine, mephentermine, fenfluramine, phentermine, phenylpropanolamine, pseudoephedrine, and propranolol. Benzoylecgonine Screen Ql (U) Negative NEGATIVE [facility] Work Phone: Comment on above: CUTOFF LEVEL: 150 NG /ML Chlordiazepoxide Confirm (U) [Mass/Vol] <25 Cutoff <25 [facility] Work Phone: Clonazepam Confirm (U) [Mass/Vol] <25 Cutoff <25 [facility] Work Phone: Codeine Confirm (U) [Mass/Vol] <50 Cutoff <50 [facility] Work Phone: Creatinine (Body fld) [Mass/Vol] 92.6 mg/dL [facility] Work Phone: Comment on above: A urine creatinine r esult >= 20 mg/dL is considered valid without suspicion of dilution. Samples with results below this range will automatically reflex to specific gravity testing to verify specimen integrity. Diazepam Confirm (U) [Mass/Vol] <25 Cutoff <25 [facility] Work Phone: Fentanyl Confirm (U) [Mass/Vol] <2.[address]5 [facility] Work Phone: Hydrocodone Confirm (U) [Mass/Vol] <25 Cutoff <25 [facility] Work Phone: Hydromorphone Confirm (U) [Mass/Vol] <25 Cutoff <25 [facility] Work Phone: Lorazepam Confirm (U) [Mass/Vol] 696 ng/mL Abnormal Cutoff <25 [facility] Work Phone: Comment on above: Consistent with use of a drug containing lorazepam, such as Ativan. Methadone Confirm (U) [Mass/Vol] <25 Cutoff <25 [facility] Work Phone: Midazolam Confirm (U) [Mass/Vol] <25 Cutoff <25 [facility] Work Phone: Morphine Confirm (U) [Mass/Vol] <50 Cutoff <50 [facility] Work Phone: Nordiazepam Confirm (U) [Mass/Vol] <25 Cutoff <25 [facility] Work Phone: Norfentanyl Confirm (U) [Mass/Vol] <2.5 Cutoff<2.5 [facility] Work Phone: Comment on above: The performance klaus acteristics of the Fentanyl Confirmation, Urine has been validated by the individual laboratory site where testing is performed. It has not been cleared or approved by the FDA. However the FDA has determined that such clearance or approval is not necessary. Our Laboratory is certified under the Clinical Laboratory Improvement Amendments of 1988 (CLIA) as qualified to perform high complexity clinical laboratory testing. Norhydrocodone Confirm (U) [Mass/Vol] <25 Cutoff <25 [facility] Work Phone: Noroxycodone Confirm (U) [Mass/Vol] <25 Cutoff <25 [facility] Work Phone: Nortramadol (U) [Mass/Vol] <50 Cutoff <50 [facility] Work Phone: Comment on above: The performance klaus acteristics of the Tramadol Confirmation, Urine has been validated by the individual laboratory site where testing is performed. It has not been cleared or approved by the FDA. However the FDA has determined that such clearance or approval is not necessary. Our Laboratory is certified under the Clinical Laboratory Improvement Amendments of 1988 (CLIA) as qualified to perform high complexity clinical laboratory testing. Oxazepam Confirm (U) [Mass/Vol] <25 Cutoff <25 [facility] Work Phone: Oxycodone Confirm (U) [Mass/Vol] <25 Cutoff <25 [facility] Work Phone: Oxymorphone Confirm (U) [Mass/Vol] <25 Cutoff <25 [facility] Work Phone: Comment on above: The performance klaus acteristics of the Opiate Confirmation, Urine has been validated by the individual laboratory site where testing is performed. It has not been cleared or approved by the FDA. However the FDA has determined that such clearance or approval is not necessary. Our Laboratory is certified under the Clinical Laboratory Improvement Amendments of 1988 (CLIA) as qualified to perform high complexity clinical laboratory testing. Temazepam Confirm (U) [Mass/Vol] <25 Cutoff <25 [facility] Work Phone: Comment on above: The performance klaus acteristics of the Benzodiazepine Confirmation, Urine has been validated by the individual laboratory site where testing is performed. It has not been cleared or approved by the FDA. However the FDA has determined that such clearance or approval is not necessary. Our Laboratory is certified under the Clinical Laboratory Improvement Amendments of 1988 (CLIA) as qualified to perform high complexity clinical laboratory testing. Tramadol Confirm (U) [Mass/Vol] <50 Cutoff <50 [facility] Work Phone: Zolpidem (U) [Mass/Vol] <25 Cutoff <25 [facility] Work Phone: SEE BELOW [facility] Work Phone: Comment on above: Drug screen results are presumptive and should not be used to assess compliance with prescribed medication. Definitive confirmatory drug testing has been added to this sample for any positive screen result and will be reported separately. .Toxicology screening results are reported qualitatively. The concentration must be greater than or equal to the cutoff to be reported as positive. The concentration at which the screening test can detect an individual drug or metabolite varies. The absence of expected drug(s) and/or drug metabolite(s) may indicate non-compliance, inappropriate timing of specimen collection relative to drug administration, poor drug absorption, diluted/adulterated urine, or limitations of testing. For medical purposes only; not valid for forensic use. .Interpretive questions should be directed to the laboratory medical directors. <25 Cutoff <25 [facility] Work Phone: Comment on above: The performance klaus acteristics of the Zolpidem Confirmation, Urine has been validated by the individual laboratory site where testing is performed. It has not been cleared or approved by the FDA. However the FDA has determined that such clearance or approval is not necessary. Our Laboratory is certified under the Clinical Laboratory Improvement Amendments of 1988 (CLIA) as qualified to perform high complexity clinical laboratory testing. 46 {mL/min/1.73m2} Abnormal >60 [facility] Work Phone: Comment on above: CALCULATIONS OF HANNAH MATED GFR ARE PERFORMED USING THE MDRD STUDY EQUATION FOR THE IDMS-TRACEABLE CREATININE METHODS. CLIN CHEM 2007;53:766-72 38 {mL/min/1.73m2} Abnormal >60 [facility] Work Phone: Urinalysison 10-30-2019 Barbiturates Screen Ql (U) Negative NEGATIVE [facility] Work Phone: Comment on above: CUTOFF LEVEL: 200 NG /ML Cannabinoids Screen Ql (U) Negative NEGATIVE [facility] Work Phone: Comment on above: CUTOFF LEVEL: 50 NG/ ML Phencyclidine [facility]l (U) [facility] Work Phone: Comment on above: CUTOFF LEVEL: 25 NG/ ML Cross-reactivity has been reported with dextromethorphan. Vitamin B12, Serumon 020 Cobalamin (Vitamin B12) [Mass/Vol] 307 pg/mL 211 - 911 [facility] Work Phone: Vitamin D 25-Hydroxyon 10-29 Calcidiol [Mass/Vol] 15 ng/mL Abnormal [facility] Work Phone: Comment on above: .DEFICIENCY: < 20 NG /MLINSUFFICIENCY: 20-29 NG/MLSUFFICIENCY: 30-100 NG/MLTHIS ASSAY ACCURATELY QUANTIFIES THE SUM OFVITAMIN D3, 25-HYDROXY AND VIT D2,25-HYDROXY. Mamm - Screening Mammogram w / Tomosynthesison 02-14-2019 MG Breast screening Interpreted by: MERNA JIMENEZ02/16/19 17:42MRN: [id number] Name: DARYN SHAH STUDY:DIGITAL MAMM SCREENING W/ TAMI; 02/14/2019 12:10 pm ORDERING CLINICIAN:HUAN MCDANIEL INDICATION:Screening. COMPARISON:10/01/2015, 01/07/2015 FINDINGS:2D and tomosynthesis images were reviewed at 1 mm slice thickness. The breast tissue is almost entirely fatty. No suspicious masses orcalcifications are identified. CAD was utilized. IMPRESSION:No mammographic evidence of malignancy. BI-RADS CATEGORY:Category: 2 - Benign Finding.Recommendation: Normal Interval Follow-up, Over Age 40.Recall Interval: 12 Months.Breast Density: Fatty. For any future breast imaging appointments, please call [phone]). Electronically signed by: CIARAN JIMENEZ 02/16/19 17:42 Normal [facility] Work Phone: MG Breast screening Please click on the link to view the study images Normal [facility] Work Phone: Hematologyon 02-05-2019 Hematocrit (Bld) [Volume fraction] 38.4 % See Below [facility] Work Phone: Comment on above: Reference Range: 36. 0 - 46.0 Hemoglobin (Bld) [Mass/Vol] 12.5 g/dL See Below [facility] Work Phone: Comment on above: Reference Range: 12. 0 - 16.0 MCV (RBC) [Entitic vol] 88 fL 80 - 100 [facility] Work Phone: Platelets (Bld) [#/Vol] 274 {x10E9/L} 150 - 450 [facility] Work Phone: RBC (Bld) [#/Vol] 4.35 {x10E12/L} See Below [facility] Work Phone: Comment on above: Reference Range: 4.0 0 - 5.20 WBC (Bld) [#/Vol] 12.2 {x10E9/L} above high threshold 4.4 - 11.3 [facility] Work Phone: Hemoglobin A1Con 02-05-2019 HbA1c (Bld) [Mass fraction] 6.2 % [facility] Work Phone: Comment on above: Diagnosis of Diabete s-Adults Non-Diabetic: < or = 5.6% Increased risk for developing diabetes: 5.7-6.4% Diagnostic of diabetes: > or = 6.5%. Monitoring of Diabetes Age (y) Therapeutic Goal (%) Adults: >18 <7.0 Pediatrics: 13-18 <7.5 7-12 <8.0 0- 6 7.5-8.5 [place] [employer]. Diabetes Care 33(S1), Apr 2009. HbA1c (Bld) [Mass fraction] 131 {MG/DL} [facility] Work Phone: Metabolic Panelon 02-05-2019 ALP [Catalytic activity/Vol] 118 U/L 33 - 136 [facility] Work Phone: Anion gap [Moles/Vol] 16 mmol/L 10 - 20 [facility] Work Phone: Bilirubin [Mass/Vol] 0.5 mg/dL 0.0 - 1.2 [facility] Work Phone: Calcium [Mass/Vol] 9.2 mg/dL 8.6 - 10.3 [facility] Work Phone: Chloride [Moles/Vol] 98 mmol/L 98 - 107 [facility] Work Phone: CO2 [Moles/Vol] 29 mmol/L 21 - 32 [facility] Work Phone: Creatinine [Mass/Vol] 1.05 mg/dL See Below [facility] Work Phone: Comment on above: Reference Range: 0.5 0 - 1.05 Glucose [Mass/Vol] 120 mg/dL above high threshold 74 - 99 [facility] Work Phone: Potassium [Moles/Vol] 4.2 mmol/L 3.5 - 5.3 [facility] Work Phone: Protein [Mass/Vol] 7.2 g/dL 6.4 - 8.2 [facility] Work Phone: Sodium [Moles/Vol] 139 mmol/L 136 - 145 [facility] Work Phone: Urea nitrogen [Mass/Vol] 19 mg/dL 6 - 23 [facility] Work Phone: Otheron 02-05-2019 Albumin BCP dye [Mass/Vol] 4.1 g/dL 3.4 - 5.0 [facility] Work Phone: ALT With P-5'-P [Catalytic activity/Vol] 12 U/L 7 - 45 [facility] Work Phone: Comment on above: Patients treated wit h Sulfasalazine may generate falsely decreased results for ALT. AST With P-5'-P [Catalytic activity/Vol] 18 U/L 9 - 39 [facility] Work Phone: Erythrocyte distribution width (RBC) [Ratio] 15.7 % above high threshold See Below [facility] Work Phone: Comment on above: Reference Range: 11. 5 - 14.5 MCHC (RBC) [Mass/Vol] 32.5 g/dL See Below [facility] Work Phone: Comment on above: Reference Range: 32. 0 - 36.0 63 {mL/min/1.73m2} >60 [facility] Work Phone: Comment on above: CALCULATIONS OF HANNAH MATED GFR ARE PERFORMED USING THE MDRD STUDY EQUATION FOR THE IDMS-TRACEABLE CREATININE METHODS. CLIN CHEM 2007;53:766-72 52 {mL/min/1.73m2} Abnormal >60 [facility] Work Phone: 4 1 [facility] Work Phone: Comment on above: Age: 73 YearsSex: FC ongestive Heart Failure: NoHypertension: YesStroke/TIA/Thromboembolism: NoVascular Disease: NoDiabetes Mellitus: Yes Moderate-High [facility] Work Phone: Comment on above: Age: 73 YearsSex: FC ongestive Heart Failure: NoHypertension: YesStroke/TIA/Thromboembolism: NoVascular Disease: NoDiabetes Mellitus: Yes 2.2 % [facility] Work Phone: Comment on above: Age: 73 YearsSex: FC ongestive Heart Failure: NoHypertension: YesStroke/TIA/Thromboembolism: NoVascular Disease: NoDiabetes Mellitus: Yes 4.8 % [facility] Work Phone: Comment on above: Age: 73 YearsSex: FC ongestive Heart Failure: NoHypertension: YesStroke/TIA/Thromboembolism: NoVascular Disease: NoDiabetes Mellitus: Yes Thyroidon 02-05-2019 TSH Qn 3.72 {mIU/L} See Below [facility] Work Phone: Comment on above: Reference Range: 0.4 4 - 3.98 TSH testing is performed using different testing methodology at [facility] than at other [facility] hospitals. Direct result comparisons should only be made within the same method. CMPon 11-05-2018 Albumin [Mass/Vol] 4.1 g/dL Normal 3.4-5.0 [facility] Comment on above: Performed By: #### 2 [id number] #### ARIANNA [employer] [facility] [place] [address] Albumin/Globulin [Mass ratio] 1.1 {ratio} Normal 1.1-1.9 [facility] Comment on above: Performed By: #### 2 [id number] #### ARIANNA [employer] [address] [place] [address]3079 Alk Phos 113 Int._Unit/L Normal 33-136 [facility] Comment on above: Performed By: #### 2 [id number] #### [facility] [employer] [address] [place] [address] 11959 ALT [Catalytic activity/Vol] 11 Int._Unit/L Normal 7-45 [facility] Comment on above: Performed By: #### 2 [id number] #### [facility] [employer] [address] [place] [address] 11755 Anion gap [Moles/Vol] 17 mmol/L Normal 10-20 [facility] Comment on above: Performed By: #### 2 [id number] #### [facility] [employer] [address] [place], [place] [id number] AST [Catalytic activity/Vol] 15 Int._Unit/L Normal 9-39 [facility] Comment on above: Performed By: #### 2 [id number] #### [facility] [employer] [address] [place] [address] 12789 Bili Total 0.55 mg/dL Normal 0.00-1.20 [facility] Comment on above: Performed By: #### 2 [id number] #### [facility] [employer] [address] [place] [address]52 Calcium [Mass/Vol] 9.7 mg/dL Normal 8.6-10.3 [facility] Comment on above: Performed By: #### 2 [id number] #### [facility] [employer] [address] [place] [address] 80189 Chloride [Moles/Vol] 97 mmol/L Low 98-107 [facility] Comment on above: Performed By: #### 2 [id number] #### [facility] [address] [place] [address] 47206 CO2 [Moles/Vol] 28.0 mmol/L Normal 21.0-32.0 [facility] Comment on above: Performed By: #### 2 [id number] #### [employer] [address] [place] [address] 40743 Creatinine [Mass/Vol] 1.3 mg/dL High 0.5-1.1 [facility] Comment on above: Performed By: #### 2 [id number] #### [facility] [address] [place] [address] 57544 Globulin (S) [Mass/Vol] 4.0 g/dL Normal 2.0-4.0 [facility] Comment on above: Performed By: #### 2 [id number] #### [facility] [address] [place] [address] 24221 Glucose [Mass/Vol] 133 mg/dL High 70-99 [facility] Comment on above: Performed By: #### 2 [id number] #### [employer] [address] [place] [address] 47735 Potassium [Moles/Vol] 3.9 mmol/L Normal 3.5-5.3 [facility] Comment on above: Performed By: #### 2 [id number] #### [employer] [address] [place] [address] 57104 Protein [Mass/Vol] 7.7 g/dL Normal 6.4-8.2 [facility] Comment on above: Performed By: #### 2 [id number] #### [employer] [address] [place] [address] 32096 Sodium [Moles/Vol] 138 mmol/L Normal 136-145 [facility] Comment on above: Performed By: #### 2 [id number] #### [employer] [address] [place] [address] 76467 Urea nitrogen [Mass/Vol] 18 mg/dL Normal 6-23 [facility] Comment on above: Performed By: #### 2 [id number] #### [employer] [address] [place] [address] 95174 Urea nitrogen/Creatinine [Mass ratio] 13.8 ratio Normal 5.4-30.0 [facility] Comment on above: Performed By: #### 2 [id number] #### [facility] [address] [place] [address] 91358 [id number] 11-05-2018 HbA1c (Bld) [Mass fraction] 6.4 % High 4.0-6.3 [facility] Comment on above: Performed By: #### 3 [id number] #### ARIANNA Chemistry Manual Subsection [address] [place] [address] 81512 Lipid Profileon 11-05-2018 Cholesterol [Mass/Vol] 222 mg/dL High 0-199 [facility] Comment on above: Result Comment: TOTA L CHOLEESTEROL: <200 NORMAL 200 - 239 BORDERLINE HIGH >240 HIGH Performed By: #### 3 [id number] #### ARIANNA [employer] [address] [place] [address] Cholesterol in HDL [Mass/Vol] 46 mg/dL Normal 40-60 [facility] Comment on above: Performed By: #### 3 [id number] #### ARIANNA [employer] [facility] [place] [address] Cholesterol in LDL [Mass/Vol] 135 mg/dL High 0-130 [facility] Comment on above: Result Comment: <100 OPTIMAL 100-129 NEAR / ABOVE OPTIMAL 130-159 BORDERLINE HIGH 160-189 HIGH >190 VERY HIGH CALC LDL NOT VALID WHEN TRIGLYCERIDE IS >400 MG/DL Performed By: #### 3 [id number] #### [employer] [address] [place] [address] 20651 Cholesterol in VLDL [Mass/Vol] 41 mg/dL High 0-40 [facility] Comment on above: Performed By: #### 3 [id number] #### ARI[employer]NA [employer] [address] [place] [address] 04124 Triglyceride [Mass/Vol] 205 mg/dL High 0-149 [facility] Comment on above: Result Comment: AGE DESIRABLE BORDERLINE HIGH 91 D - 9 Y 0 - 74 75 - 99 > 100 10 - 19 Y 0 - 89 90 - 129 > 130 20 -24 Y 0 - 114 115 - 149 > 150 > 25 0 - 149 150 - 199 200 - 499 Performed By: #### 3 [id number] #### [facility] [address] [place] [address] 10058 U Drug Screenon 11-05-2018 U Amph Scr Negative Normal Negative [facility] Comment on above: Performed By: #### 2 [id number] #### ARIANNA [employer] [facility] [place] [address] U Tara Scr Negative Normal Negative [facility] Comment on above: Performed By: #### 2 [id number] #### ARIANNA [employer] [address] [place] [address] U Benzodia Scr Negative Normal Negative [facility] Comment on above: Performed By: #### 2 [id number] #### ARIANNA [employer] [address] [place] [address] U Cannab Scr Negative Normal Negative [facility] Comment on above: Performed By: #### 2 [id number] #### ARIANNA [employer] [address] [place] [address] U Cocaine Scr Negative Normal Negative [facility] Comment on above: Performed By: #### 2 [id number] #### ARIANNA [employer] [address] [place] [address] U Opiate Scr Negative Normal Negative [facility] Comment on above: Performed By: #### 2 [id number] #### ARIANNA [employer] [address] [place] [address] U PCP Scr Negative Normal Negative [facility] Comment on above: Performed By: #### 2 [id number] #### ARIANNA [employer] [facility] [place] [address] Vitamin D 25 Hydroxyon 11-05 Vitamin D 25 Hydroxy 26.0 ng/mL Low 30.0-100.0 [facility] Comment on above: Performed By: #### 5 [id number] #### ARIANNA [employer] [address] [place] [address] eGFRon 11-05-2018 GFR/1.73 sq M predicted among non-blacks MDRD (S/P/Bld) [Vol rate/Area] 50 mL/min/1.73 m2 [facility] Comment on above: Order Comment: Order added by Discern Expert. Performed By: #### 1 [id number] #### ARIANNA [employer] [address] [place] [address] GFR/1.73 sq M predicted among non-blacks MDRD (S/P/Bld) [Vol rate/Area] 42 mL/min/1.73 m2 [facility] Comment on above: Order Comment: Order added by Discern Expert. Performed By: #### 1 [id number] #### ARIANNA [employer] [address] [place] [address] Vital Signs Date Time Vital Sign Value Performing Clinician Facility 07-23-2024 08:30-0400 Body mass index (BMI) [Ratio] 32.4 kg/m2 Dr. April Mullen MD [facility] 07-23-2024 08:30-0400 Body weight 91.[address] April Mullen MD [facility] 07-23-2024 08:30-0400 Diastolic blood pressure 79 mm[Hg] Dr. April Mullen MD [facility] 07-23-2024 08:30-0400 Heart rate 76 /min Dr. April Mullen MD [facility] 07-23-2024 08:30-0400 Respiratory rate 18 /min Dr. April Mullen MD [facility] 07-23-2024 08:30-0400 Systolic blood pressure 104 mm[Hg] Dr. April Mullen MD [facility] 07-01-2024 14:10-0400 Body temperature 97.6 [degF] [facility] 07-01-2024 14:10-0400 Diastolic blood pressure 82 mm[Hg] [facility] 07-01-2024 14:10-0400 Heart rate 81 /min [facility] 07-01-2024 14:10-0400 Respiratory rate 16 /min [facility] 07-01-2024 14:10-0400 SaO2% (BldA) [Mass fraction] 99 % [facility] 07-01-2024 14:10-0400 Systolic blood pressure 108 mm[Hg] [facility] 07-01-2024 11:58-0400 Body height 167.64 cm [facility] 07-01-2024 11:58-0400 Body mass index (BMI) [Ratio] 32.4 kg/m2 [facility] 07-01-2024 11:58-0400 Body weight 91.17 kg [facility] 04-28-2024 10:59-0500 Body height 167.64 cm [facility] 04-28-2024 10:59-0500 Body mass index (BMI) [Ratio] 32.4 kg/m2 [facility] 04-28-2024 10:59-0500 Body weight 91.17 kg Dominic Lim [facility] 04-28-2024 10:59-0500 Diastolic blood pressure 70 mm[Hg] Dominic Lim [facility] 04-28-2024 10:59-0500 Heart rate 81 /min Dominic Lim [facility] 04-28-2024 10:59-0500 Respiratory rate 18 /min Dominic Lim [facility] 04-28-2024 10:59-0500 SaO2% (BldA) [Mass fraction] 98 % Dominic Lim [facility] 04-28-2024 10:59-0500 Systolic blood pressure 98 mm[Hg] Dominic [facility] 03-28-2024 17:47-0500 Body temperature 98.2 [degF] [facility] 03-28-2024 17:47-0500 Diastolic blood pressure 61 mm[Hg] Dominic Lim [facility] 03-28-2024 17:47-0500 Heart rate 90 /min Dominic Lim [facility] 03-28-2024 17:47-0500 Respiratory rate 18 /min Dominic Lim [facility] 03-28-2024 17:47-0500 SaO2% (BldA) [Mass fraction] 97 % [facility] 03-28-2024 17:47-0500 Systolic blood pressure 99 mm[Hg] Dominic Lim [facility] 03-28-2024 11:54-0500 Body mass index (BMI) [Ratio] 34.7 kg/m2 Dominic [facility] 03-28-2024 11:54-0500 Body weight 97.6 kg Dominic Lim [facility] 02-28-2024 09:59-0500 Body height 167.6 cm Braulio Oneil MD PhD Work Phone: [facility] 02-28-2024 09:59-0500 Body mass index (BMI) [Ratio] 36.32 kg/m2 Braulio Oneil MD PhD Work Phone: [facility] 02-28-2024 09:59-0500 Body temperature 96.6 [degF] Braulio Oneil MD PhD Work Phone: [facility] 02-28-2024 09:59-0500 Body weight 102.06 kg Braulio Oneil MD PhD Work Phone: [facility] 02-28-2024 09:59-0500 Diastolic blood pressure 76 mm[Hg] Braulio Oneil MD PhD Work Phone: [facility] 02-28-2024 09:59-0500 Heart rate 88 /min Braulio Oneil MD PhD Work Phone: [facility] 02-28-2024 09:59-0500 Systolic blood pressure 108 mm[Hg] Braulio Oneil MD PhD Work Phone: [facility] 12-04-2023 10:41-0400 Diastolic blood pressure 72 mm[Hg] Eliza Milks PA-C Work Phone: [facility] 12-04-2023 10:41-0400 Heart rate 83 /min Eliza Milks PA-C Work Phone: [facility] 12-04-2023 10:41-0400 Systolic blood pressure 106 mm[Hg] Eliza Milks PA-C Work Phone: [facility] 11-20-2023 08:04-0400 Body temperature 98.1 [degF] Madhuri Chauhan MD Work Phone: [facility] 11-20-2023 08:04-0400 Diastolic blood pressure 89 mm[Hg] Madhuri Chauhan MD Work Phone: [facility] 11-20-2023 08:04-0400 Heart rate 99 /min Madhuri Chauhan MD Work Phone: [facility] 11-20-2023 08:04-0400 Respiratory rate 18 /min Madhuri Chauhan MD Work Phone: [facility] 11-20-2023 08:04-0400 SaO2% (BldA) [Mass fraction] 96 % Madhuri Chauhan MD Work Phone: [facility] 11-20-2023 08:04-0400 Systolic blood pressure 145 mm[Hg] Madhuri Chauhan MD Work Phone: [facility] 11-14-2023 18:51-0400 Body temperature 37.0 Madhuri Chauhan MD Work Phone: [facility] 11-14-2023 18:51-0400 SaO2% (BldA) [Mass fraction] 99 % Madhuri Chauhan MD Work Phone: [facility] 11-14-2023 18:34-0400 Body temperature 37.0 degrees Celsius [facility] Comment on above: Performed By: #### [id number] #### OMERO KNIGHT ([id number]) [facility] ([facility]) [address] [place] [address] 11-14-2023 18:34-0400 SaO2% (BldA) [Mass fraction] 99 % [facility] Comment on above: Performed By: #### [id number] #### OMERO KNIGHT ([id number]) [facility] ([facility]) [address] [place] [address] 11-14-2023 16:54-0400 Body temperature 37.0 Madhuri Chauhan MD Work Phone: [facility] 11-14-2023 16:54-0400 SaO2% (BldA) [Mass fraction] 99 % Madhuri Chauhan MD Work Phone: [facility] 11-14-2023 16:36-0400 Body temperature 37.0 degrees Celsius [facility] Comment on above: Performed By: #### [id number] #### OMERO KNIGHT ([id number]) [facility] ([facility]) [address] [place] [address] 11-14-2023 16:36-0400 SaO2% (BldA) [Mass fraction] 99 % HUAN MCDANIEL [facility] Comment on above: Performed By: #### [id number] #### OMERO KNIGHT ([id number]) [facility] ([facility]) [address] [place] [address] 11-09-2023 02:30-0400 Body height 170.2 cm Madhuri Chauhan MD Work Phone: [facility] 11-09-2023 02:30-0400 Body mass index (BMI) [Ratio] 32.66 kg/m2 Madhuri Chauhan MD Work Phone: [facility] 11-09-2023 02:30-0400 Body weight 94.6 kg Madhuri Chauhan MD Work Phone: [facility] 10-15-2023 15:10-0400 Body temperature 97.5 [degF] Flavio Miles DO Work Phone: [facility] 10-15-2023 15:10-0400 Diastolic blood pressure 83 mm[Hg] Flavio Miles DO Work Phone: [facility] 10-15-2023 15:10-0400 Heart rate 78 /min Flavio Miles DO Work Phone: [facility] 10-15-2023 15:10-0400 Respiratory rate 16 /min Flavio Miles DO Work Phone: [facility] 10-15-2023 15:10-0400 SaO2% (BldA) [Mass fraction] 92 % Flavio Miles DO Work Phone: [facility] 10-15-2023 15:10-0400 Systolic blood pressure 121 mm[Hg] Flavio Miles DO Work Phone: [facility] 10-10-2023 01:24-0400 Body height 167.6 cm Flavio Miles DO Work Phone: [facility] 10-10-2023 01:24-0400 Body mass index (BMI) [Ratio] 40.35 kg/m2 Flavio Miles DO Work Phone: [facility] 10-10-2023 01:24-0400 Body weight 113.4 kg Flavio Miles DO Work Phone: [facility] 06-10-2023 19:14-0500 Diastolic blood pressure 63 mm[Hg] Flavio Miles DO Work Phone: [facility] 06-10-2023 19:14-0500 Heart rate 83 /min Flavio Miles DO Work Phone: [facility] 06-10-2023 19:14-0500 Respiratory rate 16 /min Flavio Miles DO Work Phone: [facility] 06-10-2023 19:14-0500 SaO2% (BldA) [Mass fraction] 98 % Flavio Miles DO Work Phone: [facility] 06-10-2023 19:14-0500 Systolic blood pressure 118 mm[Hg] Flavio Miles DO Work Phone: [facility] 06-10-2023 17:41-0500 Body height 167.6 cm Flavio Miles DO Work Phone: [facility] 06-10-2023 17:41-0500 Body mass index (BMI) [Ratio] 40.03 kg/m2 Flavio Miles DO Work Phone: [facility] 06-10-2023 17:41-0500 Body temperature 97.81 [degF] Flavio Miles DO Work Phone: [facility] 06-10-2023 17:41-0500 Body weight 112.49 kg Flavio Miles DO Work Phone: [facility] 10-13-2022 14:22-0400 Body height 167.6 cm Huan Mcdaniel MD Work Phone: [facility] 10-13-2022 14:22-0400 Body mass index (BMI) [Ratio] 40.05 kg/m2 Huan Mcdaniel MD Work Phone: [facility] 10-13-2022 14:22-0400 Body weight 112.49 kg Huan Mcdaniel MD Work Phone: [facility] 06-05-2022 11:04-0500 Body mass index (BMI) [Ratio] Medical Reason Not Done Huan Mcdaniel Work Phone: [facility] Work Phone: 06-05-2022 11:04-0500 Diastolic blood pressure 78 mm[Hg] Huan O Mcdaniel Work Phone: [facility] Work Phone: 06-05-2022 11:04-0500 Heart rate 90 /min Huan O Mdcaniel Work Phone: [facility] Work Phone: 06-05-2022 11:04-0500 SaO2% (BldA) [Mass fraction] 90 % Huan O Mcdaniel Work Phone: [facility] Work Phone: 06-05-2022 11:04-0500 Systolic blood pressure 120 mm[Hg] Huan O Mcdaniel Work Phone: [facility] Work Phone: 05-24-2022 11:32-0500 Diastolic blood pressure 74 mm[Hg] Huan O Mcdaniel Work Phone: [facility] [address] Work Phone: 05-24-2022 11:32-0500 Heart rate 104 /min Huan O Mcdaniel Work Phone: SZ-Vcllvoqchz-Btpd [address] Work Phone: 05-24-2022 11:32-0500 SaO2% (BldA) [Mass fraction] 97 % Huan O Mcdaniel Work Phone: [facility]Bwbztngucm-Wnyv [address] Work Phone: 05-24-2022 11:32-0500 Systolic blood pressure 118 mm[Hg] Huan O Mcdaniel Work Phone: RH-Noyjhssola-Ajqj [address] Work Phone: 03-07-2022 14:08-0500 Body mass index (BMI) [Ratio] Patient Reason Not Done Huan O Mcdaniel Work Phone: [facility] Work Phone: 03-07-2022 14:08-0500 Diastolic blood pressure 74 mm[Hg] Huan O Mcdaniel Work Phone: [facility] Work Phone: 03-07-2022 14:08-0500 Heart rate 76 /min Huan O Mcdaniel Work Phone: [facility] Work Phone: 03-07-2022 14:08-0500 Respiratory rate 16 /min Huan O Mcdaniel Work Phone: [facility] Work Phone: 03-07-2022 14:08-0500 Systolic blood pressure 118 mm[Hg] Huan O Mcdaniel Work Phone: [facility] Work Phone: 02-04-2021 16:31-0400 Diastolic blood pressure 78 mm[Hg] Huan O Mcdaniel Work Phone: [facility] Work Phone: 02-04-2021 16:31-0400 Heart rate 72 /min Huan O Mcdaniel Work Phone: [facility] Work Phone: 02-04-2021 16:31-0400 Systolic blood pressure 124 mm[Hg] Huan Mcdaniel Work Phone: [facility] Work Phone: 11-13-2019 15:22-0400 BMI (Body Mass Index) 51.09 kg/m2 Huan Mcdaniel NR-Zoheaxciwo-YBM [place] [address] DO Work Phone: 11-13-2019 15:22-0400 Body Temperature 96.9 [degF] Huan Mcdaniel KI-Ahwnvcxjun-D [facility] Work Phone: 11-13-2019 15:22-0400 Body weight 139.26 kg Huan Mcdaniel YH-Efwgvhbswb-XJ [facility] DO Work Phone: 11-13-2019 15:22-0400 BP Diastolic 69 mm[Hg] Huan Mcdaniel AP-Prprzyqwod-KI [facility] [place] Edwin [address] DO Work Phone: Comment on above: Location: RUE; Position: Sitting 11-13-2019 15:22-0400 BP Systolic 116 mm[Hg] Huan Mcdaniel WO-Ogidulecee-LL [facility] DO Work Phone: Comment on above: Location: RUE; Position: Sitting 11-13-2019 15:22-0400 BSA (Body Surface Area) 2.37 m2 Huan Mcdaniel EF-Benvbzzdmg-ADT [place] Edwin 3 DO Work Phone: 11-13-2019 15:22-0400 Height 165.1 cm Huan Mcdaniel YZ-Lflrnoswun-AQ [facility] [place] Edwin 3 DO Work Phone: 11-13-2019 15:22-0400 Pulse (Heart Rate) 79 /min Huan Mcdaniel [facility] [place] [facility] [address] DO Work Phone: 10-30-2019 12:49-0400 BMI (Body Mass Index) 51.09 kg/m2 [facility]ada [facility] Work Phone: 10-30-2019 12:49-0400 Body Temperature 98.2 [degF] Waqar [facility]strada [facility] Work Phone: Comment on above: Method: Oral 10-30-2019 12:49-0400 Body weight 139.[address] [facility] Work Phone: 10-30-2019 12:49-0400 BP Diastolic 80 mm[Hg] Waqar [facility] Work Phone: Comment on above: Location: LUE; 10-30-2019 12:49-0400 BP Systolic 134 mm[Hg] Waqar [facility]ada [facility] Work Phone: Comment on above: Location: E; 10-30-2019 12:49-0400 BSA (Body Surface Area) 2.37 m2 Waqar Estrada [facility] Work Phone: 10-30-2019 12:49-0400 Height 165.1 cm Waqar Estrada [facility] Work Phone: 10-30-2019 12:49-0400 Pulse (Heart Rate) 72 /min Waqar Estrada [facility] Work Phone: 02-19-2019 12:06-0500 BMI (Body Mass Index) 50.66 kg/m2 [facility] Work Phone: 02-19-2019 12:06-0500 Body weight 138.08 kg [facility] Work Phone: 02-19-2019 12:06-0500 BP Diastolic 86 mm[Hg] [facility] Work Phone: Comment on above: Location: LUE; 02-19-2019 12:06-0500 BP Systolic 128 mm[Hg] [facility] Work Phone: Comment on above: Location: LUE; 02-19-2019 12:06-0500 BSA (Body Surface Area) 2.36 m2 [facility] Work Phone: 02-19-2019 12:06-0500 Height 165.1 cm [facility] Work Phone: 02-19-2019 12:06-0500 Pulse (Heart Rate) 84 /min [facility] Work Phone: 02-19-2019 12:06-0500 Pulse Oximetry 96 % [facility] [employer] Work Phone: 02-05-2019 12:12-0400 BMI (Body Mass Index) 51.59 kg/m2 Huan Mcdaniel [facility] Work Phone: 02-05-2019 12:12-0400 Body weight 140.62 kg Huan Manriqueer [facility] Work Phone: 02-05-2019 12:12-0400 BP Diastolic 78 mm[Hg] Huan Mcdaniel [facility] Work Phone: Comment on above: Location: LUE; 02-05-2019 12:12-0400 BP Systolic 128 mm[Hg] Huan Mcdaniel [facility] Work Phone: Comment on above: Location: LUE; 02-05-2019 12:12-0400 BSA (Body Surface Area) 2.38 m2 Huan Manriqueer [facility] Work Phone: 02-05-2019 12:12-0400 Height 165.1 cm Huan Mcdaniel [facility] Work Phone: 02-05-2019 12:12-0400 Pulse (Heart Rate) 72 /min Huan Manriqueer [facility] [place] Work Phone: Encounters Encounter Date Encounter Type Care Provider Facility Start: 10-22-2024 ambulatory April Gudla Facility:[facility] Start: 08-19-2024 ambulatory Delgado LUCERO Juan A ity:[facility] Start: 08-19-[address] Delgado Amaro MD -[facility] Start: 08-13-2024 ambulatory April Gudla Facility:[facility] Start: 08-13-2024 Non-patient / Non-visit Dr. Henri duron MD -[facility] Start: 08-13-2024 End: 08-13-[address] April Mullen MD [facility] Work Phone: Start: 08-13-2024 End: 08-13-[address] Henri Pedraza MD -[facility] Work Phone: Start: 08-13-2024 End: 08-13-2024 ambulatory April Gudla Facility:[facility] Start: 07-31-2024 End: 07-31-2024 Patient encounter procedure Mandy MISTRY -[facility] Work Phone: Start: 07-31-2024 End: 07-31-2024 ambulatory April Gudla Facility:[facility] Start: 07-23-2024 End: 07-23-[address] Henri Pedraza MD -[facility] Work Phone: Start: 07-23-2024 End: 07-23-2024 ambulatory April Gudla Facility:[facility] Start: 07-22-2024 End: 07-22-[address] April Mullen MD [facility] Work Phone: Start: 07-22-2024 End: 07-22-[address] Delgado Amaro MD -[facility] Start: 07-22-2024 End: 07-22-20[facility] Start: 07-01-2024 ambulatory April Gudla Facility:[facility] Start: 07-01-2024 Non-patient / Non-visit Jacinto Masterson nd DO -[facility] Start: 07-01-2024 End: 07-01-2024 Admission to same day surgery center Jacinto Munoz DO -Endoscopy Work Phone: Start: 07-01-2024 End: 07-01-2024 ambulatory Dominic [facility] Work Phone: Start: 06-24-2024 End: 06-24-2024 ambulatory Dominic [facility] Work Phone: Start: 06-24-2024 End: 06-24-[address] Delgado Amaro MD -[facility] Start: 06-24-[address] Delgado Amaro MD -[facility] Start: 06-24-2024 End: 06-24-2024 ambulatory [facility] Facility:[facility] Start: 06-04-2024 End: 06-04-2024 ambulatory [facility] Work Phone: Start: 06-04-2024 End: 06-04-[address] April Mullen MD -[facility] Start: 06-04-[address] April Mullen MD -[facility] Start: 06-03-2024 End: 06-04-2024 ambulatory [facility] Work Phone: Start: 06-03-2024 End: 06-03-[address] Delgado Amaro MD -[facility] Start: 06-03-[address] Delgado Amaro MD [facility] Start: 06-02-2024 End: 06-03-2024 ambulatory [facility] Facility:[facility] Start: 06-02-[address] April Mullen MD -[facility] Start: 05-27-2024 [facility] ty:[facility] Start: 05-27-[address] April Mullen MD -[facility] Start: 05-12-2024 End: 05-12-2024 ambulatory Dominic LUCERO [facility] Work Phone: Start: 05-12-2024 End: 05-12-[address] Delgado Amaro MD -[facility] Start: 05-12-2024 End: 05-12-2024 ambulatory Delgado LUCERO Facility:[facility] Start: 04-28-2024 End: 04-28-2024 Patient encounter procedure Chrissie Meza RACETRACK STEWARD-C -[facility] Work Phone: Start: 04-28-2024 End: 04-28-2024 ambulatory Chrissie Meza Facility:[facility] Start: 04-14-2024 ambulatory April LUCERO Facili ty:[facility] Start: 04-14-[address] April Mullen MD -[facility] Start: 04-07-2024 End: 04-07-[address] April Mullen MD -[facility] Start: 04-07-2024 End: 04-07-2024 ambulatory April LUCERO Facility:[facility] Start: 04-03-2024 End: 04-03-[address] April Mullen MD -[facility] Start: 04-03-2024 End: 04-03-2024 ambulatory April Mullen Facility:[facility] Start: 03-28-2024 End: 03-28-2024 Emergency department patient visit Dr. Anthony Greer DO -Emergency Department Work Phone: Start: 03-28-2024 End: 03-28-2024 Departed Referred Dominic Lim -[facility] Start: 03-28-2024 End: 03-28-2024 ambulatory Dominic LUCERO Facility:[facility] Start: 02-28-2024 End: 02-28-2024 Postop follow up visit related to original px Braulio Oneil MD PhD Work Phone: [facility] Comment on above: S/P laminectomy (Elizabet santosh Dx) Start: 02-28-2024 End: 02-28-2024 ambulatory BRAULIO Kwok ONEIL [facility] Start: 02-27-2024 End: 02-27-2024 Departed Referred Dominic Lim [facility] Start: 02-27-2024 End: 02-27-2024 ambulatory Dominic LUCERO Facility:[facility] Start: 01-29-2024 ambulatory Dominic Lim [facility] Facili ty:[facility] Start: 01-28-2024 ambulatory Dominic Lim [facility] Facili ty:[facility] Start: 01-21-2024 ambulatory Dominic Lim [facility] Facili ty:[facility] Start: 01-16-2024 ambulatory April Bassbonifacioa OLS Facili ty:[facility] Start: 01-15-2024 End: 01-15-2024 Office outpatient visit 25 minutes Megan Osorio DO Work Phone: [facility] Comment on above: Vertebral osteomyeli tis (Multi) (Primary Dx) Start: 01-15-2024 End: 01-15-2024 ambulatory [facility] Start: 01-14-2024 ambulatory Dominic Lim OLS Facili ty:[facility] Start: 01-09-2024 ambulatory April Lowa OLS Facili ty:[facility] Start: 01-01-2024 ambulatory Natalie Espinal Facility:[facility] Start: 12-31-2023 End: 01-08-2024 Evaluation and management of inpatient Waqar de Donte Facility:[facility] Start: 12-31-2023 ambulatory Waqar de Donte Facili ty:[facility] Start: 12-28-2023 ambulatory Dominic Lim OLS Facili ty:[facility] Start: 12-26-2023 End: 12-26-2023 Office outpatient visit 25 minutes Megan Osorio DO Work Phone: [facility] Comment on above: Vertebral osteomyeli tis (Multi) (Primary Dx); Discitis, unspecified, thoracic region Start: 12-25-2023 ambulatory Dominic Lim OLS Facili ty:[facility] Start: 12-24-2023 ambulatory April Kalidla OLS Facili ty:[facility] Start: 12-19-2023 ambulatory April aKlidla OLS Facili ty:[facility] Start: 12-18-2023 ambulatory Dominic Lim Facility:[facility] Start: 12-17-2023 End: 12-18-2023 Emergency department patient visit Jerman Zavala Facility:[facility] Start: 12-12-2023 ambulatory Dominic Lim OLS Facili ty:[facility] Start: 12-11-2023 ambulatory Dominic Lim OLS Facili ty:[facility] Start: 12-04-2023 End: 12-04-2023 ambulatory [facility] Ambulatory Start: 12-04-2023 End: 12-04-2023 Postop follow up visit related to original px Eliza Glass [facility] PA-C Work Phone: [facility] Comment on above: Spondylosis with mye lopathy, thoracic region (Primary Dx) Start: 12-03-2023 ambulatory Dominic Lim OLS Facili ty:[facility] Start: 11-30-2023 ambulatory April Lowa OLS Facili ty:[facility] Start: 11-28-2023 ambulatory Dominic Lim OLS Facili ty:[facility] Start: 11-27-2023 ambulatory Dominic Lim OLS Facili ty:[facility] Start: 11-26-2023 ambulatory Dominic Lim OLS Facili ty:[facility] Start: 11-21-2023 ambulatory Dominic Lim OLS Facili ty:[facility] Start: 11-09-2023 End: 11-20-2023 Evaluation and management of inpatient SKINNY Licea [facility] Work Phone: Start: 11-06-2023 End: 11-08-2023 Evaluation and management of inpatient [facility] Start: 10-22-2023 ambulatory Dominic Lim OLS Facili ty:[facility] Start: 10-16-2023 ambulatory Dominic Lim OLS Facili ty:[facility] Start: 10-10-2023 End: 10-15-2023 Evaluation and management of inpatient 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) Start: 08-20-2023 End: 08-20-2023 ambulatory [facility] Ambulatory Start: 08-03-2023 End: 08-03-2023 ambulatory [facility] Start: 08-02-2023 End: 08-02-2023 ambulatory [facility] Start: 08-02-2023 End: 08-02-2023 Telemedicine consultation with patient [facility] Comment on above: Persistent atrial fi brillation (Multi) Start: 07-20-2023 End: 07-20-2023 ambulatory [facility] Ambulatory Start: 07-20-2023 End: 07-20-2023 Office outpatient visit 15 minutes Marleen Sigala [employer]OCI[employer], DNP Work Phone: [facility] Comment on above: Persistent atrial fi brillation (Multi) (Primary Dx) Start: 07-03-2023 End: 07-03-2023 Office outpatient visit 15 minutes Huan Mcdaniel MD Work Phone: [facility] Comment on above: Hematoma of right fo ot (Primary Dx); Anxiety Start: 06-10-2023 End: 06-10-2023 Emergency department patient visit Flavio Miles DO Work Phone: [facility] Comment on above: Contusion of right f oot, initial encounter (Primary Dx); Hematoma of right foot Start: 05-21-2023 End: 05-21-2023 [facility] Start: 04-20-2023 End: 04-20-2023 Phys/qhp telephone evaluation 21-30 min Huan Mcdaniel MD Work Phone: [facility] Comment on above: Syndrome of inapprop riate secretion of antidiuretic hormone (CMS/HCC) (Primary Dx); Diabetes 1.5, managed as type 2 (CMS/HCC); Anxiety; Venous stasis ulcer with varicose veins of lower extremity (CMS/HCC); Chronic atrial fibrillation (CMS/HCC); Depression, major, single episode, moderate (CMS/HCC); Morbid obesity with BMI of 40.0-44.9, adult (CMS/HCC); 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, without long-term current use of insulin (CMS/HCC) Start: 03-13-2023 End: 03-13-2023 Office outpatient visit 25 minutes Huan Mcdaniel MD Work Phone: [facility] Comment on above: Morbid obesity with BMI of 40.0-44.9, adult (CMS/HCC) (Primary Dx); Diabetes 1.5, managed as type 2 (CMS/HCC); Anxiety; Benign essential hypertension; Hyperlipidemia, unspecified hyperlipidemia type; Hypokalemia; Hypomagnesemia; Iron deficiency anemia secondary to inadequate dietary iron intake; Vitamin D deficiency; Age-related incipient cataract of both eyes Start: 03-06-2023 End: 03-06-2023 ambulatory HUAN MCDANIEL [facility] Start: 12-12-2022 End: 12-12-2022 Office outpatient visit 25 minutes Huan Mcdaniel MD Work Phone: [facility] Comment on above: Anxiety (Primary Dx) ; 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, without long-term current use of insulin (CMS/HCC); Asthma, unspecified asthma severity, unspecified whether complicated, unspecified whether persistent; Chronic atrial fibrillation (CMS/HCC); Benign essential hypertension; Depression, major, single episode, moderate (CMS/HCC); Diarrhea, unspecified type; Generalized muscle weakness; Hyperlipidemia, unspecified hyperlipidemia type; Lumbar facet arthropathy; Lymphedema of both lower extremities; Morbid obesity with BMI of 40.0-44.9, adult ([facility]); Neurodermatitis; Personal history of colonic polyps; Primary osteoarthritis of both knees; Vitamin D deficiency Start: 10-13-2022 End: 10-13-2022 Phys/qhp telephone evaluation 21-30 min Huan Mcdaniel MD Work Phone: [facility] Comment on above: Chronic atrial fibri llation ([facility]) (Primary Dx); Asthma, unspecified asthma severity, unspecified whether complicated, unspecified whether persistent; 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 Huan Mcdaniel Facility:[id number] Start: 06-05-2022 Adv care pln tlkd & alt dcsn maker docd Huan Mcdaniel Work Phone: [facility] Work Phone: Start: 06-02-2022 Chart Update Huan Mcdaniel Work Phone: [facility] Work Phone: Start: 06-01-2022 Chart Update Huan Mcdaniel Work Phone: [facility] Work Phone: Start: 05-24-2022 Office outpatient vi sit 25 minutes Huan Mcdaniel Work Phone: [address] Work Phone: Start: 05-11-2022 AUDIT Huan Mcdaniel Work Phone: [facility] Work Phone: Start: 04-04-2022 AUDIT Huan O Mcdaniel Work Phone: [facility] Work Phone: Start: 03-28-2022 AUDIT Huan Banerjeeyder Work Phone: [facility] Work Phone: Start: 03-07-2022 EPV, Provider: Huan Mcdaniel, Status: Pen, Time: 2:00 PM Huan Banerjeeyder Work Phone: [facility] Work Phone: Start: 03-07-2022 Office outpatient vi sit 25 minutes Huan Manriqueer Work Phone: [facility] Work Phone: Start: 03-06-2022 Chart Update Huan Manriqueer Work Phone: [facility] Work Phone: Start: 02-10-2022 AUDIT Huan Manriqueer Work Phone: [facility] Work Phone: Start: 12-23-2021 AUDIT Huan Banerjeeyder Work Phone: [facility] Work Phone: Start: 12-02-2021 Office outpatient vi sit 25 minutes Huan Manriqueer Work Phone: [facility] Work Phone: Start: 12-02-2021 VIRFUVHOME, Provider : Huan Mcdaniel, Status: Pen, Time: 3:30 PM Huan Pooja BanerjeeMcdaniel Work Phone: [facility] Work Phone: Start: 12-01-2021 Chart Update Huan Patton Mcdaniel Work Phone: [facility] Work Phone: Start: 11-14-2021 AUDIT Huan Banerjeeyder Work Phone: [facility] Work Phone: Start: 10-21-2021 AUDIT Huan O Mcdaniel Work Phone: [facility] Work Phone: Start: 10-14-2021 AUDIT Huan O Mcdaniel Work Phone: [facility] Work Phone: Start: 10-11-2021 AUDIT Huan O Mcdaniel Work Phone: [facility] Work Phone: Start: 09-29-2021 AUDIT Huan O Mcdaniel Work Phone: [facility] Work Phone: Start: 09-26-2021 AUDIT Huan O Mcdaniel Work Phone: [facility] Work Phone: Start: 09-22-2021 AUDIT Huan O Mcdaniel Work Phone: [facility] Work Phone: Start: 09-01-2021 Office outpatient vi sit 25 minutes Huan O Mcdaniel Work Phone: [facility] Work Phone: Start: 08-25-2021 AUDIT Huan O Mcdaniel Work Phone: [facility] Work Phone: Start: 08-08-2021 AUDIT Huan O Mcdaniel Work Phone: [facility] Work Phone: Start: 08-01-2021 Chart Update Huan O Mcdaniel Work Phone: [facility] Work Phone: Start: 07-21-2021 AUDIT Huan O Mcdaniel Work Phone: [facility] Work Phone: Start: 06-20-2021 AUDIT Huan Banerjeeyder Work Phone: [facility] Work Phone: Start: 06-09-2021 Phys/qhp telephone evaluation 21-30 min Huan Pooja BanerjeeMcdaniel Work Phone: [facility] Work Phone: Start: 06-09-2021 CHRISTINE, Provider : Huan cMdaniel, Status: Pen, Time: 1:00 PM Huan Pooja BanerjeeMcdaniel Work Phone: [facility] Work Phone: Start: 06-08-2021 Chart Update Huan Banerjeeyder Work Phone: [facility] Work Phone: Start: 05-25-2021 Phys/qhp telephone evaluation 21-30 min Huan Manriqueer Work Phone: [address] Work Phone: Start: 05-25-2021 CHRISTINE, Provider : Norman Valdivia, Status: Pen, Time: 10:45 AM Huan Manriqueer Work Phone: [facility] Work Phone: Start: 05-23-2021 AUDIT Huan Banerjeeyder Work Phone: [facility] Work Phone: Start: 04-22-2021 AUDIT Huan Patton Mcdaniel Work Phone: [facility] Work Phone: Start: 04-11-2021 AUDIT Huan O Mcdaniel Work Phone: [facility] Work Phone: Start: 03-24-2021 AUDIT Huan O Mcdaniel Work Phone: [facility] Work Phone: Start: 03-07-2021 AUDIT Huan O Mcdaniel Work Phone: [facility] Work Phone: Start: 02-11-2021 Chart Update Huan O Mcdaniel Work Phone: [facility] Work Phone: Start: 02-04-2021 Office outpatient vi sit 25 minutes Huan O Mcdaniel Work Phone: [facility] Work Phone: Start: 01-28-2021 AUDIT Huan O Mcdaniel Work Phone: [facility] Work Phone: Start: 01-25-2021 AUDIT Huan O Mcdaniel Work Phone: [facility] Work Phone: Start: 12-28-2020 AUDIT Huan O Mcdaniel Work Phone: [facility] Work Phone: Start: 12-20-2020 AUDIT Huan O Mcdaniel Work Phone: [facility] Work Phone: Start: 12-01-2020 AUDIT Huan O Mcdaniel Work Phone: [facility] Work Phone: Start: 11-05-2020 Office outpatient vi sit 25 minutes Huan O Mcdaniel Work Phone: [facility] Work Phone: Start: 11-05-2020 Chart Update Huan O Mcdaniel Work Phone: [facility] Work Phone: Start: 11-02-2020 CHRISTINE, Provider : Huan Mcdaniel, Status: Pen, Time: 2:30 PM Huan O Mcdaniel Work Phone: [facility] Work Phone: Start: 11-01-2020 AUDIT Huan Manriqueer Work Phone: [facility] Work Phone: Start: 10-21-2020 Chart Update Huan Manriqueer Work Phone: [facility] Work Phone: Start: 10-21-2020 Chart Update Huan Manriqueer Work Phone: [facility] Work Phone: Start: 10-13-2020 AUDIT Huan Manriqueer Work Phone: [facility] Work Phone: Start: 09-09-2020 AUDIT Huan Manriqueer Work Phone: [facility] Work Phone: Start: 04-05-2020 Patient encounter procedure Huan Mcdaniel [facility] Work Phone: Start: 01-30-2020 Patient encounter procedure Huan Mcdaniel [facility] Work Phone: Start: 12-17-2019 Patient encounter procedure Huan Mcdaniel [facility] Work Phone: Start: 11-13-2019 Patient encounter procedure [facility] Work Phone: Start: 11-12-2019 Patient encounter procedure Waqar [facility] Work Phone: Start: 10-30-2019 Patient encounter procedure Waqar [facility] Work Phone: Start: 10-20-2019 [facility] [place] Work Phone: Start: 10-15-2019 Patient encounter procedure [facility] [place] Work Phone: Start: 09-22-2019 Patient encounter procedure Waqar [facility] [place] Work Phone: Start: 09-19-2019 Patient encounter procedure Waqar [facility] [place] Work Phone: Start: 09-17-2019 Patient encounter procedure Waqar [facility] [place] Work Phone: Start: 09-15-2019 Patient encounter procedure Waqar [facility] Work Phone: Start: 09-11-2019 Patient encounter procedure Waqar [facility] [place] Work Phone: Start: 09-10-2019 Patient encounter procedure Waqar [facility] Work Phone: Start: 09-08-2019 Patient encounter procedure Waqar [facility] Work Phone: Start: 09-05-2019 Patient encounter procedure Waqar [facility] Work Phone: Start: 08-25-2019 Patient encounter procedure Waqar [facility] Work Phone: Start: 08-21-2019 Patient encounter procedure Waqar [facility] Work Phone: Start: 08-18-2019 Patient encounter procedure Waqar [facility] Work Phone: Start: 08-05-2019 Patient encounter procedure Huan Mcdaniel -[facility] Work Phone: Start: 07-29-2019 Patient encounter procedure Huan Mcdaniel [facility] Work Phone: Start: 07-10-2019 Patient encounter procedure Huan Mcdaniel [facility] Work Phone: Start: 05-20-2019 Patient encounter procedure Huan Mcdaniel [facility] Work Phone: Start: 02-19-2019 Patient encounter procedure [facility] Work Phone: Start: 02-14-2019 Patient encounter procedure Huan Mcdaniel [facility] Work Phone: Start: 02-05-2019 Patient encounter procedure Huan Mcdaniel [facility] Work Phone: Procedures Date Procedure Procedure Detail Performing Clinician Start: 08-13-2024 Cardiovascular stres s test using pharmacologic stress agent Dr. April Mullen MD Start: 07-23-2024 Evaluation of diagno stic study results Dr. April Mullen MD Start: 07-01-2024 Colonoscopy Dominic LUCERO Start: 06-02-2024 Measurement of renal function Dr. April Mullen MD Comment on above: GFR Calc Start: 05-27-2024 Measurement of renal function Dr. April Mullen MD Comment on above: GFR Calc Start: 05-12-2024 Measurement of renal function Dr. April Mullen MD Comment on above: GFR Calc Start: 05-12-2024 Vitamin D, 25-hydrox y measurement Dr. April Mullen MD Comment on above: Vitamin D 25(OH) Sta tus Range Deficiency <20 ng/mL (50nmol/L) Insufficiency 20 - 30 ng/mL (50 - 75 nmol/L) Sufficiency 30 - 100 ng/mL (75 - 250 nmol/L) Toxicity >100 ng/mL (>250 nmol/L) Start: 03-28-2024 Measurement of occul t blood in stool specimen using immunoassay Dominic LUCERO Start: 11-20-2023 End: 11-20-2023 Renal function panel Danny Deng MD Work Phone: Start: 11-20-2023 Glucose quantitative blood xcpt reagent strip Sai Marie MD Work Phone: Start: 11-20-2023 Drug screen quantita tive vancomycin Eulalia Champagne MD Work Phone: Start: 11-19-2023 Glucose quantitative blood xcpt reagent strip Sai Marie MD Work Phone: Start: 11-19-2023 Cyanocobalamin vitamin b-12 Monique Anders MD Work Phone: Start: 11-19-2023 Glucose quantitative blood xcpt reagent strip Sai Marie MD Work Phone: Start: 11-19-2023 Glucose quantitative blood xcpt reagent strip Sai Marie MD Work Phone: Start: 11-19-2023 Drug screen quantita tive vancomycin Linda M Lesly PharmD Work Phone: Start: 11-19-2023 End: 11-19-2023 Renal function panel Danny Deng MD Work Phone: Start: 11-19-2023 Thyrotropin [Units/v olume] in Serum or Plasma Eliza Milks PA-C Work Phone: Start: 11-18-2023 Glucose quantitative blood xcpt reagent strip Sai Marie MD Work Phone: Start: 11-18-2023 Glucose quantitative blood xcpt reagent strip Sai Marie MD Work Phone: Start: 11-18-2023 Glucose quantitative blood xcpt reagent strip Sai Marie MD Work Phone: Start: 11-18-2023 Glucose quantitative blood xcpt reagent strip Sai Marie MD Work Phone: Start: 11-18-2023 Renal function panel Steve Deng MD Work Phone: Start: 11-17-2023 Glucose quantitative blood xcpt reagent strip Sai Marie MD Work Phone: Start: 11-17-2023 Glucose quantitative blood xcpt reagent strip Sai Marie MD Work Phone: Start: 11-17-2023 Glucose quantitative blood xcpt reagent strip Sai Marie MD Work Phone: Start: 11-17-2023 Glucose quantitative blood xcpt reagent strip Ru Ortega MD Work Phone: Start: 11-17-2023 Renal function panel Steve Deng MD Work Phone: Start: 11-16-2023 Glucose quantitative blood xcpt reagent strip Ru Ortega MD Work Phone: Start: 11-16-2023 Renal function panel Steve Deng MD Work Phone: Start: 11-16-2023 Insertion picc w/o i mg gdn 5 yr/> Danny Deng MD Work Phone: Start: 11-16-2023 Radiologic exam ches t single view Danny Deng MD Work Phone: Start: 11-16-2023 Glucose quantitative blood xcpt reagent strip Ru Ortega MD Work Phone: Start: 11-16-2023 Glucose quantitative blood xcpt reagent strip Ru Ortega MD Work Phone: Start: 11-16-2023 Glucose quantitative blood xcpt reagent strip Ru Ortega MD Work Phone: Start: 11-15-2023 Glucose quantitative blood xcpt reagent strip Ru Ortega MD Work Phone: Start: 11-15-2023 Glucose quantitative blood xcpt reagent strip Ru Ortega MD Work Phone: Start: 11-15-2023 Renal function panel Steve Deng MD Work Phone: Start: 11-15-2023 Glucose quantitative blood xcpt reagent strip Ru Ortega MD Work Phone: Start: 11-15-2023 Glucose quantitative blood xcpt reagent strip Ru Ortega MD Work Phone: Start: 11-14-2023 Glucose quantitative blood xcpt reagent strip Ru Ortega MD Work Phone: Start: 11-14-2023 XR tomography Unspec ified body region Giovanna Coles MD Work Phone: Start: 11-14-2023 PULSE OXIMETRY, CONTINUOUS Carolina Bright MD Work Phone: Start: 11-14-2023 Chloride toby clark MD Work Phone: Start: 11-14-2023 End: 11-14-2023 Cul bact xcpt urine blood/stool aerobic isol Braulio Oneil MD PhD Work Phone: Start: 11-14-2023 Chloride toby clark MD Work Phone: Start: 11-14-2023 PREPARE RBC Miles clark MD Work Phone: Start: 11-14-2023 End: 11-14-2023 Allograft for spine surgery only morselized Braulio Oneil MD PhD Work Phone: Start: 11-14-2023 Glucose quantitative blood xcpt reagent strip Ru Ortega MD Work Phone: Start: 11-14-2023 Glucose quantitative blood xcpt reagent strip Ru Ortega MD Work Phone: Start: 11-14-2023 Renal function panel Ra tiffanie Anders MD Work Phone: Start: 11-13-2023 Radiologic exam ches t single view Jadny Chan MD Work Phone: Start: 11-13-2023 Glucose quantitative blood xcpt reagent strip Ru Ortega MD Work Phone: Start: 11-13-2023 EXTRA URINE DRAPER TUBE B leta Chan MD Work Phone: Start: 11-13-2023 Urinalysis complete W Reflex Culture panel - Urine Jadyn Chan MD Work Phone: Start: 11-13-2023 Urnls dip stick/tabl et reagent auto microscopy Jadyn Chna MD Work Phone: Start: 11-13-2023 Glucose quantitative blood xcpt reagent strip Ru Ortega MD Work Phone: Start: 11-13-2023 Blood typing serolog ic rh (d) Monique Anders MD Work Phone: Start: 11-13-2023 Glucose quantitative blood xcpt reagent strip Ru Ortega MD Work Phone: Start: 11-13-2023 Drug screen quantita tive vancomycin Eulalia Champagne MD Work Phone: Start: 11-13-2023 Cul bact xcpt urine blood/stool aerobic isol Danny Deng MD Work Phone: Start: 11-13-2023 Biopsy bone trocar/n eedle deep Danny Deng MD Work Phone: Start: 11-13-2023 Glucose quantitative blood xcpt reagent strip Ru Ortega MD Work Phone: Start: 11-12-2023 Glucose quantitative blood xcpt reagent strip Ru Ortega MD Work Phone: Start: 11-12-2023 Glucose quantitative blood xcpt reagent strip Ru Ortega MD Work Phone: Start: 11-12-2023 Glucose quantitative blood xcpt reagent strip Ru Ortega MD Work Phone: Start: 11-12-2023 Glucose quantitative blood xcpt reagent strip Ru Ortega MD Work Phone: Start: 11-12-2023 Basic metabolic pane l calcium total Danny Deng MD Work Phone: Start: 11-12-2023 Blood typing serolog ic rh (d) Danny Deng MD Work Phone: Start: 11-11-2023 Glucose quantitative blood xcpt reagent strip Ru Ortega MD Work Phone: Start: 11-11-2023 Renal function panel Steve Deng MD Work Phone: Start: 11-11-2023 Glucose quantitative blood xcpt reagent strip Ru Ortega MD Work Phone: Start: 11-11-2023 Glucose quantitative blood xcpt reagent strip Ru Ortega MD Work Phone: Start: 11-11-2023 End: 11-11-2023 Renal function panel Danny Deng MD Work Phone: Start: 11-10-2023 Glucose quantitative blood xcpt reagent strip Ru Ortega MD Work Phone: Start: 11-10-2023 Glucose quantitative blood xcpt reagent strip Ru Ortega MD Work Phone: Start: 11-10-2023 Glucose quantitative blood xcpt reagent strip Ru Ortega MD Work Phone: Start: 11-10-2023 Glucose quantitative blood xcpt reagent strip Ru Ortega MD Work Phone: Start: 11-10-2023 Drug screen quantita tive vancomycin Eulalia Champagne MD Work Phone: Start: 11-10-2023 Glucose quantitative blood xcpt reagent strip Ru Ortega MD Work Phone: Start: 11-09-2023 Glucose quantitative blood xcpt reagent strip Ru Ortega MD Work Phone: Start: 11-09-2023 Glucose quantitative blood xcpt reagent strip Ru Ortega MD Work Phone: Start: 11-09-2023 Glucose quantitative blood xcpt reagent strip Ru Ortega MD Work Phone: Start: 11-09-2023 Culture bacterial bl ood aerobic w/id isolates Eulalia Champagne MD Work Phone: Start: 11-09-2023 Ecg routine ecg w/le ast 12 lds trcg only w/o i&r Giovanna Coles MD Work Phone: Start: 11-09-2023 Glucose quantitative blood xcpt reagent strip Ru Ortega MD Work Phone: Start: 11-09-2023 Glucose quantitative blood xcpt reagent strip Ru Ortega MD Work Phone: Start: 11-09-2023 Urnls dip stick/tabl et rgnt auto w/o microscopy Eulalia Champagne MD Work Phone: Start: 11-09-2023 Comprehensive metabo lic panel Eulalia Champagne MD Work Phone: Start: 10-15-2023 Glucose quantitative blood xcpt reagent strip Renetta Romero MD Work Phone: Start: 10-15-2023 Glucose quantitative blood xcpt reagent strip Renetta Romero MD Work Phone: Start: 10-15-2023 Glucose quantitative blood xcpt reagent strip Renetta Romero MD Work Phone: Start: 10-15-2023 Basic metabolic pane l calcium total Dorota I Wittel [employer] Work Phone: Start: 10-14-2023 Glucose quantitative blood xcpt reagent strip Renetta Romero MD Work Phone: Start: 10-14-2023 Glucose quantitative blood xcpt reagent strip Renetta Romero MD Work Phone: Start: 10-14-2023 Glucose quantitative blood xcpt reagent strip Renetta Romero MD Work Phone: Start: 10-14-2023 RESPIRATORY CARE HILDA LUATION ONLY Renetta Romero MD Work Phone: Start: 10-14-2023 Glucose quantitative blood xcpt reagent strip Renetta Romero MD Work Phone: Start: 10-14-2023 Basic metabolic pane l calcium total Dorota I Wittel [employer] Work Phone: Start: 10-13-2023 Glucose quantitative blood xcpt reagent strip Renetta Romero MD Work Phone: Start: 10-13-2023 Glucose quantitative blood xcpt reagent strip Renetta Romero MD Work Phone: Start: 10-13-2023 Glucose quantitative blood xcpt reagent strip Renetta Romero MD Work Phone: Start: 10-13-2023 Glucose quantitative blood xcpt reagent strip Renetta Romero MD Work Phone: Start: 10-13-2023 Basic metabolic pane l calcium total Dorota I Josephtel [employer] Work Phone: Start: 10-12-2023 Glucose quantitative blood xcpt reagent strip Renetta Romero MD Work Phone: Start: 10-12-2023 Glucose quantitative blood xcpt reagent strip Renetta Romero MD Work Phone: Start: 10-12-2023 Glucose quantitative blood xcpt reagent strip Renetta Romero MD Work Phone: Start: 10-12-2023 Glucose quantitative blood xcpt reagent strip Renetta Romero MD Work Phone: Start: 10-12-2023 Basic metabolic pane l calcium total Ru Mills DO Work Phone: Start: 10-11-2023 Glucose quantitative blood xcpt reagent strip Renetta Romero MD Work Phone: Start: 10-11-2023 Glucose quantitative blood xcpt reagent strip Renetta Romero MD Work Phone: Start: 10-11-2023 Glucose quantitative blood xcpt reagent strip Renetta Romero MD Work Phone: Start: 10-11-2023 Glucose quantitative blood xcpt reagent strip Renetta Romero MD Work Phone: Start: 10-11-2023 Basic metabolic pane l calcium total Love A Florencialesvia [employer] Work Phone: Start: 10-10-2023 Glucose quantitative blood xcpt reagent strip Renetta Romero MD Work Phone: Start: 10-10-2023 Glucose quantitative blood xcpt reagent strip Renetta Romero MD Work Phone: Start: 10-10-2023 End: 10-10-2023 Basic metabolic panel calcium total Renetta Romero MD Work Phone: Start: 10-10-2023 EXTRA TUBES Renetta girffith MD Work Phone: Start: 10-10-2023 LAVENDER TOP Renetta griffith MD Work Phone: Start: 10-10-2023 End: 10-10-2023 Basic metabolic panel calcium total Love Gibbs [employer] Work Phone: Start: 10-10-2023 Culture bacterial quanttative colony count urine Flavio Miles DO Work Phone: Start: 10-10-2023 Urinalysis microscop ic panel - Urine Qualitative by Automated Flavio Miles DO Work Phone: Start: 10-10-2023 Assay of troponin quantitative Flavio Miles DO Work Phone: Start: 10-10-2023 Ct abdomen & pelvis w/o contrast material Flavio Miles DO Work Phone: Start: 10-10-2023 End: 10-10-2023 Basic metabolic panel calcium total Flavio Miles DO Work Phone: Start: 10-10-2023 Troponin I.cardiac p cortney - Serum or Plasma by High sensitivity method Flavio Miles DO Work Phone: Start: 10-10-2023 Radiologic exam ches t single view Flavio Miles DO Work Phone: Start: 10-10-2023 Ecg routine ecg w/le ast 12 lds trcg only w/o i&r Flavio Miles DO Work Phone: Start: 08-20-2023 FOLLOW UP IN FAMILY MEDICINE MARLEEN SIGALA Start: 08-03-2023 ALKALINE PHOSPHATASE , ISOENZYMES HUAN MCDANIEL Start: 08-03-2023 GAMMA-GLUTAMYL TRANSFERASE HUAN MCDANIEL Start: 08-03-2023 Hepatic function 200 0 panel - Serum or Plasma HUAN MCDANIEL Start: 08-02-2023 AMB REFERRAL TO [facility] HUAN MCDANIEL Start: 06-10-2023 XR FOOT RIGHT 3+ VIEWS HUAN MCDANIEL Start: 06-10-2023 Radex foot complete minimum 3 views Flavio Miles DO Work Phone: Start: 05-21-2023 ALKALINE PHOSPHATASE , ISOENZYMES HUAN MCDANIEL Start: 05-21-2023 CBC panel - Blood by Automated count HUAN MCDANIEL Start: 05-21-2023 Comprehensive metabo lic 1999 panel - Serum or Plasma HUAN MCDANIEL Start: 05-21-2023 Ferritin [Mass/volum e] in Serum or Plasma HUAN MCDANIEL Start: 05-21-2023 IRON AND TIBC HUAN BRYANT Start: 05-21-2023 VITAMIN D 25-HYDROXY,TOTAL HUAN MCDANIEL Start: 03-06-2023 CBC panel - Blood by Automated count HUAN MCDANIEL Start: 03-06-2023 Comprehensive metabo lic 1999 panel - Serum or Plasma HUAN MCDANIEL Start: 03-06-2023 Cyanocobalamin vitamin b-12 HUAN MCDANIEL Start: 03-06-2023 Hemoglobin A1c/Hemoglobin.total in Blood HUAN MCDANIEL Start: 03-06-2023 Lipid panel HUAN EMERSON Start: 03-06-2023 Magnesium [Mass/volu me] in Serum or Plasma HUAN MCDANIEL Start: 03-06-2023 Lipid 1996 panel - S ginny or Plasma Huan Mcdaniel MD Work Phone: Start: 09-09-2022 Lipid 1996 panel - S ginny or Plasma Huan Mcdaniel MD Work Phone: Start: 11-13-2019 Lipid panel Huan Manrique er Start: 07-11-2019 Lipid panel Huan Manrique er Start: 05-20-2019 25 hydroxy includes fractions if performed Huan Mcdaniel Start: 05-20-2019 Basic metabolic 1998 panel - Serum or Plasma Huan Mcdaniel Start: 05-20-2019 Cyanocobalamin vitamin b-12 Huan Mcdaniel Start: 05-20-2019 Hemoglobin glycosylated a1c Huan Mcdaniel Start: 05-20-2019 Noninvasive colorect al cancer DNA and occult blood screening [Presence] in Stool Huan Mcdaniel Start: 02-14-2019 Echocardiography Huan Mcdaniel Start: 02-14-2019 Mammography Huan emerson MD Work Phone: Start: 02-13-2019 Echocardiography Huan Mcdaniel Start: 02-08-2019 Echocardiography Huan Mcdaniel Start: 02-05-2019 Echocardiography Huan Mcdaniel Start: 02-05-2019 MG Breast screening Bruce Mcdaniel Start: 02-05-2019 Thyrotropin [Units/v olume] in Serum or Plasma Huan Mcdaniel MD Work Phone: Start: 09-22-2011 Colonoscopy Flavio Marianela morton DO Work Phone: Start: 09-22-2011 Colonoscopy Huan marquez Work Phone: Start: 04-09-2000 Cholecystectomy Huan Mcdaniel Work Phone: Start: 04-09-1981 Ligation of fallopian tube Huan Mcdaniel Work Phone: section Huan Dennison r Cholecystectomy Huan Mcdaniel Comment on above: Completed: 2000 End: 06-07-1997 Colonoscopy Huan Mcdaniel Colonoscopy Huan Mcdaniel Dilation and curettage Huan Mcdaniel Comment on above: 1966 and 1978; Ligation of fallopian tube Stephanie Mcdaniel Comment on above: Completed: 1981 Plan of Treatment Date Care Activity Detail Author Start: 01-18-2033 DTaP/Tdap/Td Vaccine s (2 - Td or Tdap) DTaP/Tdap/Td Vaccines (2 - Td or Tdap) [facility] Start: 01-18-2033 [facility] Start: 11-18-2028 Cyanocobalamin vitam in b-12 Vitamin B12 [facility] Start: 11-18-2028 [facility] Start: 03-06-2028 Cyanocobalamin vitam in b-12 Vitamin B12 [facility] Start: 09-10-2027 Cyanocobalamin vitam in b-12 Vitamin B12 [facility] Start: 11-18-2024 Thyroid stimulating hormone measurement [facility] Start: 07-25-2024 Screening for malign ant neoplasm of colon [facility] Start: 07-18-2024 End: 07-18-2024 ambulatory [facility] Start: 07-18-2024 End: 07-18-2024 Telemedicine consultation with patient 07/18/2024 1:00 PM EDT Telemedicine [facility] Office Building [address] [place] [address] Marleen Sigala, [employer] CHAIN ASSOCIATE, DNP [address] [facility], [address] [place] [id number] [facility] Office Building Start: 07-01-2024 Colsc flx w/rmvl of tumor polyp lesion snare tq COLONOSCOPY W/LESION REMOVAL [facility] Start: 07-01-2024 Endoscopy upper smal l intestine w/biopsy SMALL BOWEL ENDOSCOPY/BIOPSY [facility] Start: 07-01-2024 [facility] Start: 06-18-2024 Evaluation of diagno stic study results [facility] Start: 03-28-2024 [facility] Start: 03-06-2024 Lipid panel [facility] Start: 02-28-2024 End: 02-28-2024 ambulatory [facility] Start: 02-28-2024 End: 02-28-2024 Patient encounter procedure 02/28/2024 10:00 AM EST Office Visit [facility] [address] [place] [phone] Braulio Oneil [place] PhD [address] [facility] [address] [place] [address] [facility] Start: 12-27-2023 End: 12-26-2024 PET+CT Bone from skull base to mid-thigh W [id number] IV NM PET CT bone skull base to mid thigh Imaging Routine Vertebral osteomyelitis (Multi) Discitis, unspecified, thoracic region Expected: 12/27/2023 (Approximate), Expires: 12/26/2024 [facility] Service Area Work Phone: Comment on above: Expected: 12/27/2023 (Approximate), Expires: 12/26/2024 Start: 12-26-2023 End: 12-26-2023 ambulatory [facility] Start: 12-26-2023 End: 12-26-2023 Telemedicine consultation with patient 12/26/2023 10:20 AM EDT Telemedicine [facility] [address] [place] [address] Megan Osorio, [address] [place] [address] [facility] Start: 12-18-2023 End: 12-18-2023 ambulatory [facility] Start: 12-18-2023 End: 12-18-2023 Patient encounter procedure 12/18/2023 1:00 PM EDT Office Visit [facility] [address] [place] [phone] Huan Mcdaniel MD [address] [facility] [place] [address] [facility] Start: 12-09-2023 COVID-19 Vaccine ( season) COVID-19 Vaccine ( season) [facility] Start: 12-09-2023 COVID-19 Vaccine ( season) COVID-19 Vaccine ( season) [facility] Start: 12-09-2023 Influenza vaccination [facility] Start: 12-04-2023 End: 11-19-2024 NM Whole body Bone Views [facility] Work Phone: Start: 12-04-2023 End: 12-04-2023 ambulatory [facility] Start: 11-20-2023 End: 08-19-2024 25-hydroxyvitamin D3 [Mass/volume] in Serum or Plasma Vitamin D 25-Hydroxy,Total (for eval of Vitamin D levels) Lab Routine Vitamin D deficiency Expected: 11/20/2023 (Approximate), Expires: 08/19/2024 [facility] Work Phone: Comment on above: Expected: 11/20/2023 (Approximate), Expires: 08/19/2024 Start: 11-20-2023 End: 08-19-2024 Comprehensive metabolic 2000 panel - Serum or Plasma Comprehensive metabolic panel Lab Routine Diabetes 1.5, managed as type 2 (Multi) Expected: 11/20/2023 (Approximate), Expires: 08/19/2024 [facility] Work Phone: Comment on above: Expected: 11/20/2023 (Approximate), Expires: 08/19/2024 Start: 11-20-2023 End: 08-19-2024 Hemoglobin A1c/Hemoglobin.total in Blood Hemoglobin A1C Lab Routine Diabetes 1.5, managed as type 2 (Multi) Expected: 11/20/2023 (Approximate), Expires: 08/19/2024 [facility] Service Area Work Phone: Comment on above: Expected: 11/20/2023 (Approximate), Expires: 08/19/2024 Start: 11-20-2023 End: 08-19-2024 Magnesium [Mass/volume] in Serum or Plasma Magnesium Lab Routine Diabetes 1.5, managed as type 2 (Multi) Expected: 11/20/2023 (Approximate), Expires: 08/19/2024 [facility] Work Phone: Comment on above: Expected: 11/20/2023 (Approximate), Expires: 08/19/2024 Start: 11-16-2023 End: 11-15-2024 Broad Range PCR-Bacteria [facility] Work Phone: Start: 09-12-2023 Screening for malign ant neoplasm of colon [facility] Start: 09-10-2023 Lipid panel Lipid Panel [facility] Start: 08-20-2023 End: 08-20-2023 Telemedicine consultation with patient 08/20/2023 3:30 PM EDT Telemedicine [facility] [address] [place] [phone] Huan Mcdaniel MD [address] [facility], [address] [place] [phone] [facility] Start: 08-10-2023 End: 08-10-2023 Patient encounter procedure 08/10/2023 2:30 PM EDT Appointment [address] [phone] [facility] Start: 07-20-2023 End: 07-20-2023 Patient encounter procedure 07/20/2023 2:30 PM EDT Office Visit [facility] Office [facility] [address] [place] [phone] Marleen Sigala, [employer] CH[employer] ASSOCIATE, DNP [address] [facility] [address] [place] [phone] [facility] Office [facility] Start: 06-06-2023 Hemoglobin A1c measurement [facility] Start: 06-06-2023 Medicare Annual Well ness Visit [facility] Start: 05-25-2023 End: 05-25-2023 Patient encounter procedure 05/25/2023 11:30 AM EST Office Visit [facility] Office [facility] [address] [place] [phone] Marleen Sigala, [employer]Y CHAIN ASSOCIATE, DNP [address] [facility], [address] [place], [place] [phone] [facility] Office [facility] Start: 05-23-2023 FUV, Provider: Norman Valdivia, Status: Pen, Time: 11:00 AM FUV, Provider: Norman Valdivia, Status: Pen, Time: 11:00 AM [facility] [address] Work Phone: Start: 12-28-2022 RSV High Risk: (Elde rly (60+) or Population) (1 - 1-dose 75+ series) RSV High Risk: (Elderly (60+) or Population) (1 - 1-dose 75+ series) [facility] Start: 12-12-2022 End: 12-12-2022 Patient encounter procedure 12/12/2022 1:00 PM EDT Office Visit [facility] [address] [place] [phone] Huan Mcdaniel MD [address] [facility] [address] [place] [address] [facility] Start: 12-10-2022 Hemoglobin A1c measurement Diabetes: Hemoglobin A1C [facility] Start: 12-08-2022 COVID-19 Vaccine ( season) COVID-19 Vaccine ( season) [facility] Start: 12-08-2022 Influenza vaccination Influenza Vacc ine (#1) [facility] Start: 12-08-2022 [facility] Start: 10-13-2022 End: 10-14-2023 CBC panel - Blood by Automated count CBC Lab Routine Iron deficiency anemia secondary to inadequate dietary iron intake Expected: 10/13/2022 (Approximate), Expires: 10/14/2023 [facility] Service Area Work Phone: Comment on above: Expected: 10/13/2022 (Approximate), Expires: 10/14/2023 Start: 10-13-2022 End: 10-20-2022 Clostridioides difficile toxin A+B tcdA+tcdB genes [Presence] in Stool by SEFERINO with probe detection C. 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, without long-term current use of insulin ([facility]) Expected: 10/13/2022 (Approximate), Expires: 10/14/2023 [facility] Work Phone: Comment on above: Expected: 10/13/2022 (Approximate), Expires: 10/14/2023 Start: 06-05-2022 FUV, Provider: Huan Mcdaniel, Status: Pen, Time: 11:00 AM FUV, Provider: Huan Mcdaniel, Status: Pen, Time: 11:00 AM [facility] Work Phone: Start: 05-24-2022 FUV, Provider: Norman Valdivia, Status: Pen, Time: 11:15 AM FUV, Provider: Norman Valdivia, Status: Pen, Time: 11:[address] Work Phone: Start: 03-07-2022 EPV, Provider: Huan Mcdaniel, Status: Pen, Time: 2:00 PM EPV, Provider: Huan Mcdaniel, Status: Pen, Time: 2:00 PM [facility] Work Phone: Start: 03-01-2022 COVID-19 Vaccine (3 - Booster for Rosa series) COVID-19 Vaccine (3 - Booster for Rosa series) [facility] Start: 12-02-2021 VIRFUVHOME, Provider : Huan Mcdaniel, Status: Pen, Time: 3:30 PM VIRFUVHOME, Provider: Huan Mcdaniel, Status: Pen, Time: 3:30 PM [facility] Work Phone: Start: 09-21-2021 Screening for malign ant neoplasm of colon [facility] Start: 09-13-2021 FUV, Provider: Huan Mcdaniel, Status: Pen, Time: 1:00 PM FUV, Provider: Huan Mcdaniel, Status: Pen, Time: 1:00 PM [facility] Work Phone: Start: 09-01-2021 VIRFUVHOME, Provider : Huan Mcdaniel, Status: Pen, Time: 11:30 AM VIRFUVHOME, Provider: Huan Mcdaniel, Status: Pen, Time: 11:30 AM [facility] Work Phone: Start: 06-09-2021 EPV, Provider: Huan Mcdaniel, Status: Pen, Time: 1:00 PM EPV, Provider: Huan Mcdaniel, Status: Pen, Time: 1:00 PM [facility] Work Phone: Start: 05-25-2021 FUV, Provider: Norman Valdivia, Status: Pen, Time: 10:45 AM FUV, Provider: Norman Valdivia, Status: Pen, Time: 10:45 AM [facility] Work Phone: Start: 05-24-2021 FUV, Provider: Rama Villagran, Status: Pen, Time: 11:00 AM FUV, Provider: Rama Villagran, Status: Pen, Time: 11:00 AM [facility] Work Phone: Start: 05-06-2021 EPV, Provider: Huan Mcdaniel, Status: Pen, Time: 4:00 PM EPV, Provider: Huan Mcdaniel, Status: Pen, Time: 4:00 PM [facility] Work Phone: Start: 02-04-2021 VIRFUVHOME, Provider : Huan Mcdaniel, Status: Pen, Time: 4:30 PM VIRFUVHOME, Provider: Huan Mcdaniel, Status: Pen, Time: 4:30 PM [facility] Work Phone: Start: 11-02-2020 EPV, Provider: Huan Mcdaniel, Status: Pen, Time: 2:30 PM EPV, Provider: Huan Mcdaniel, Status: Pen, Time: 2:30 PM [facility] Work Phone: Start: 02-15-2020 Screening for malign ant neoplasm of breast Mammogram [facility] Start: 02-06-2020 Thyroid stimulating hormone measurement TSH Level [facility] Start: 02-14-2019 Echocardiography Echocardiogram [facility] Corporate Work Phone: Start: 02-14-2019 MG Breast screening Mamm - Scr eening Mammogram w/ Tomosynthesis [facility] Work Phone: Start: 03-04-2014 Zoster Vaccines (2 of 3) Zoste r Vaccines (2 of 3) [facility] Start: 03-04-2014 [facility] Start: 2007 RSV patient s and/or patients aged 60+ years (1 - 1-dose 60+ series) RSV patients and/or patients aged 60+ years (1 - 1-dose 60+ series) [facility] Start: 2007 [facility] Start: 12-28-1969 DTaP/Tdap/Td Vaccine s (1 - Tdap) DTaP/Tdap/Td Vaccines (1 - Tdap) [facility] Start: 12-28-1966 Urine screening for protein [facility] Start: 12-28-1965 Hepatitis C screening U [facility] Start: 12-28-1957 Diabetic foot examination [facility] Start: 12-28-1957 Glaucoma screening [facility] Start: 12-28-1957 Ophthalmic examinati on and evaluation Diabetes: Retinopathy Screening [facility] Start: 1947 Annual wellness visit Medicare Initial Physical (IPPE) [facility] Start: 1947 Diabetes: Celiac Dis ease Screening Diabetes: Celiac Disease Screening [facility] Start: 1947 Medicare Annual Well ness Visit Medicare Annual Wellness Visit (AWV) [facility] Start: 1947 Screening for malign ant neoplasm of colon [facility] Start: 1947 Screening for osteoporosis [facility] Start: 1947 Thyroid stimulating hormone measurement TSH Level [facility] Start: 1947 [facility] End: 11-15-2023 Art Therapy eval and treat [facility] Work Phone: End: 01-01-2025 C reactive protein [Mass/volume] in Serum or Plasma [facility] Work Phone: End: 12-26-2024 C reactive protein [Mass/volume] in Serum or Plasma C-reactive protein Lab Routine Vertebral osteomyelitis (Multi) Once a week for 3 Occurrences starting 12/27/2023 until 12/26/2024 [facility] Work Phone: Comment on above: Once a week for 3 Oc currences starting 12/27/2023 until 12/26/2024 End: 01-01-2025 CBC W Auto Differential panel - Blood [facility] Service Area Work Phone: End: 12-26-2024 CBC W Auto Differential panel - Blood CBC and Auto Differential Lab Routine Vertebral osteomyelitis (Multi) Once a week for 3 Occurrences starting 12/27/2023 until 12/26/2024 [facility] Work Phone: Comment on above: Once a week for 3 Oc currences starting 12/27/2023 until 12/26/2024 CBC W Auto Different ial panel - Blood [facility] End: 01-01-2025 Comprehensive metabolic 2000 panel - Serum or Plasma [facility] Work Phone: End: 12-26-2024 Comprehensive metabolic 2000 panel - Serum or Plasma Comprehensive metabolic panel Lab Routine Vertebral osteomyelitis (Multi) Once a week for 3 Occurrences starting 12/27/2023 until 12/26/2024 [facility] Work Phone: Comment on above: Once a week for 3 Oc currences starting 12/27/2023 until 12/26/2024 ECG 12 lead ECG 12 lead ECG STAT 10/10/2023 1:16 AM EDT [facility] Work Phone: Electrocardiogram, 12-lead PRN ACS symptoms Electrocardiogram, 12-lead PRN ACS symptoms ECG Routine As needed until discontinued starting 10/10/2023 [facility] Work Phone: Comment on above: As needed until disc ontinued starting 10/10/2023 Electrocardiogram, 12-lead PRN ACS symptoms [facility] Work Phone: End: 10-10-2023 Extra Urine Draper Tube Extra Urine Draper Tube Lab Timed Once for 1 Occurrences starting 10/10/2023 until 10/10/2023 [facility] Work Phone: Comment on above: Once for 1 Occurrenc es starting 10/10/2023 until 10/10/2023 Glucose [Mass/volume ] in Serum or Plasma POCT Glucose Point of Care Testing - Docked Device Routine As needed (Lab) until discontinued starting 10/10/2023 [facility] Work Phone: Comment on above: As needed (Lab) unti l discontinued starting 10/10/2023 Glucose [Mass/volume ] in Serum or Plasma [facility] Work Phone: End: 10-14-2023 Hemoglobin.gastrointesti nal [Presence] in Stool --1st specimen Occult Blood, Stool Microbiology Routine Once (Lab) for 1 Occurrences starting 10/14/2023 until 10/14/2023 [facility] Work Phone: Comment on above: Once (Lab) for 1 Occ urrences starting 10/14/2023 until 10/14/2023 Lipid panel Lipid Panel [facility] Work Phone: Comment on above: Approx [id number] End: 11-16-2023 Methicillin resistant Staphylococcus aureus [Presence] in Nose by Organism specific culture [facility] Work Phone: End: 10-15-2023 Music Therapy eval and treat Music Therapy eval and treat Therapeutic Recreation Orderables Routine Until therapy completed for 1 Occurrences starting 10/15/2023 until 10/15/2023 [facility] Work Phone: Comment on above: Until therapy comple kayla for 1 Occurrences starting 10/15/2023 until 10/15/2023 End: 11-19-2023 Music Therapy eval and treat [facility] Work Phone: Patient Education GI Bleeding Ca uses and Tests [facility] Work Phone: Patient referral [facility] Work Phone: End: 11-13-2023 Prepare RBC: 1 Units [facility] Work Phone: End: 11-13-2023 Surgical pathology study [facility] Work Phone: End: 10-10-2023 Urinalysis complete W Reflex Culture panel - Urine Urinalysis with Reflex Culture and Microscopic Lab STAT Once (Lab) for 1 Occurrences starting 10/10/2023 until 10/10/2023 [facility] Service Area Work Phone: Comment on above: Once (Lab) for 1 Occ urrences starting 10/10/2023 until 10/10/2023 Urinalysis complete W Reflex Culture panel - Urine Urinalysis with Reflex Culture and Microscopic Lab STAT 10/10/2023 3:28 AM EDT [facility] Work Phone: End: 11-22-2023 Vancomycin [Mass/volume] in Serum or Plasma [facility] Work Phone: End: 01-01-2025 Vancomycin [Mass/volume] in Serum or Plasma --trough [facility] Work Phone: End: 12-26-2024 Vancomycin [Mass/volume] in Serum or Plasma --trough Vancomycin, trough Lab Routine Vertebral osteomyelitis (Multi) Once a week for 3 Occurrences starting 12/27/2023 until 12/26/2024 [facility] Work Phone: Comment on above: Once a week for 3 Oc currences starting 12/27/2023 until 12/26/2024 [facility] Corporate Work Phone: NEGATED: Highlighted row has been ruled out! Planned Goals not documented -[facility] Work Phone: Immunizations Immunization Date Immunization Notes Care Provider Joo hernandez 01-02-2024 influenza, high dose seasonal, preservative-free Dominic Lim [facility] 01-18-2023 influenza, seasonal, injectable Huan Mcdaniel MD Work Phone: [facility] Work Phone: 01-18-2023 Pneumococcal conjuga te vaccine, 20-valent (PREVNAR 20) Huan Mcdaniel MD Work Phone: [facility] Work Phone: 01-18-2023 tetanus toxoid, redu sarah diphtheria toxoid, and acellular pertussis vaccine, adsorbed Huan Mcdaniel MD Work Phone: [facility] 01-18-2023 influenza virus vacc ine, unspecified formulation Flavio Miles CAMPOS Work Phone: [facility] Work Phone: 01-04-2022 influenza, high dose seasonal, preservative-free Huan Mcdaniel Work Phone: [facility] Work Phone: Comment on above: Series: 01-04-2022 Influenza, High-dose Seasonal, Quadrivalent, Preservative Free Huan Mcdaniel MD Work Phone: [facility] Work Phone: 01-04-2022 Pfizer COVID-19 Vac Bivalent 30 MCG/0.3ML Intramuscular Suspension Huan Mcdaniel Work Phone: [facility] Work Phone: 01-04-2022 Pfizer-BioNTech COVI D-19 Vacc 30 MCG/0.3ML Intramuscular Suspension Huan Mcadniel Work Phone: [facility] Work Phone: Comment on above: Series: 01-04-2022 influenza virus vacc ine, unspecified formulation Huan Mcdaniel MD Work Phone: [facility] Work Phone: 02-10-2021 SnapsortNTZymergen COVI D-19 Vacc 30 MCG/0.3ML Intramuscular Suspension Huan Patton Mcdaniel Work Phone: [facility] Work Phone: 01-20-2021 Fluzone High-Dose Quadrivalent 0.7 ML Intramuscular Suspension Prefilled Syringe Huan Pooja Mcdaniel Work Phone: [facility] Work Phone: 06-11-2020 Rosa COVID-19 Vac cine 0.5 ML Intramuscular Suspension Huanfatou Banerjeeyder Work Phone: [facility] Comment on above: Series: 01-30-2020 Fluzone High-Dose Quadrivalent 0.7 ML Intramuscular Suspension Prefilled Syringe Huan Mcdaniel [facility] Work Phone: Comment on above: Series: 01-30-2020 influenza, seasonal, injectable Huan Mcdaniel [facility] Work Phone: 01-10-2019 influenza, high dose seasonal, preservative-free [facility] Comment on above: Series: 12-28-2017 influenza virus vacc ine, unspecified formulation; Translations: [influenza virus vaccine, unspecified formulation] Huan Mcdaniel [facility] Work Phone: Comment on above: Series: 12-28-2017 influenza, high dose seasonal, preservative-free Huan Mcdaniel MD Work Phone: [facility] Work Phone: 01-15-2017 influenza, high dose seasonal, preservative-free Huan Mcdaniel Work Phone: [facility] Work Phone: 05-23-2016 pneumococcal conjuga te vaccine, 13 valent [facility] Comment on above: Series: 02-22-2016 influenza virus vacc ine, unspecified formulation Huan Mcdaniel Work Phone: [facility] Work Phone: 01-29-2016 influenza, high dose seasonal, preservative-free Huan Mcdaniel Work Phone: [facility] Work Phone: 01-07-2014 pneumococcal polysaccharide vaccine, 23 valent Huan Mcdaniel [facility] Work Phone: Comment on above: Series: 01-07-2014 zoster vaccine, live Huan Mcdaniel [facility] Work Phone: Comment on above: Series: 02-25-2009 novel influenza-H1N1 -09, preservative-free, injectable Huan Mcdaniel Work Phone: [facility] Work Phone: 02-15-2007 influenza virus vacc ine, whole virus Huan Mcdaniel Work Phone: [facility] Work Phone: Payers Date Payer Category Payer Medicare [id number] 2023 Self-pay 2023 Medicare (Managed Care) [facility] [id number] 2023 Unknown 2023 Unknown [id number] 2021 Medicare ANTHEM MEDICARE ANTHEM MEDICARE ADVANTAGE [id number] 2021-Present [address] [place] [address] [id number] 2021 Unknown [id number] 1947 Unknown [id number] [id number]. 2.1069 1947 Unknown [id number] 2.16.840.1.185998.3.579. 2.1242 1947 Unknown [id number] 2.16.840.1.635825.3.579. 2.1242 1947 Unknown [id number] 2.16.840.1.734088.3.579. 2.1242 1947 Unknown [id number] 2.16.840.1.073974.3.579. 2.1244 1947 Unknown [id number] 2.16840.1.934807.3.579. 2.1244 1947 Unknown [id number] 2.16840.1.398257.3.579. 2.1244 1947 Unknown [id number] 2.840.1.487050.3.579. 2.1244 1947 Unknown [id number] 2.840.1.377147.3.579. 2.1244 1947 Unknown [id number] 2.16840.1.582359.3.579. 2.1244 1947 Unknown [id number] 2.16840.1.197731.3.579. 2.1243 1947 Unknown [id number] 2.16840.1.158712.3.579. 2.1243 1947 Unknown [id number] 2.16.840.1.715895.3.579. 2.1243 1947 Unknown [id number] 2.16.840.1.717986.3.579. 2.1244 Unknown [id number] 2.16.840.1.292314.3.579. 2.462 Unknown [id number] 2.16840.1.289771.3.579. 2.462 Unknown [id number] 2.16.840.1.510812.3.579. 2.462 Unknown [id number] 2.16840.1.382514.3.579. 2.462 Unknown [id number] 2.16.840.1.862290.3.579. 2.462 Unknown [id number] 2.16840.1.689962.3.579. 2.462 Unknown [id number] 2.16840.1.095837.3.579. 2.462 Unknown [id number] 2.840.1.335924.3.579. 2.462 Unknown [id number] 2.840.1.021805.3.579. 2.462 Unknown [id number] 2.840.1.818924.3.579. 2.462 Unknown [id number] 2.840.1.984712.3.579. 2.462 Unknown [id number] 2.840.1.838241.3.579. 2.462 Unknown [id number] 2.840.1.417516.3.579. 2.462 Unknown [id number] 2.840.1.148845.3.579. 2.462 Unknown [id number] 2.840.1.371985.3.579. 2.462 Unknown [id number] 2.840.1.028918.3.579. 2.462 Unknown [id number] 2.16840.1.033604.3.579. 2.462 Unknown [id number] 2.16840.1.245033.3.579. 2.462 Unknown [id number] 2.16840.1.717164.3.579. 2.462 Unknown [id number] 2.840.1.252854.3.579. 2.462 Unknown [id number] 2.16.840.1.212699.3.579. 2.462 Unknown [id number] 2.16.840.1.742814.3.579. 2.462 Unknown [id number] 2.16.840.1.705079.3.579. 2.462 Unknown [id number] 2.16.840.1.639850.3.579. 2.462 Unknown [id number] 2.16.840.1.821084.3.579. 2.462 Unknown [id number] 2.16.840.1.562594.3.579. 2.462 Unknown [id number] 2.16.840.1.268653.3.579. 2.462 Unknown [id number] 2.16.840.1.943382.3.579. 2.462 Unknown [id number] 2.16.840.1.650554.3.579. 2.462 Unknown [id number] 2.16.840.1.998526.3.579. 2.462 Unknown [id number] 2.16.840.1.000831.3.579. 2.462 Unknown [id number] 2.16.840.1.674365.3.579. 2.462 Unknown [id number] 2.16.840.1.207941.3.579. 2.462 Unknown [id number] 2.16.840.1.642147.3.579. 2.462 Social History Date Type Detail Facility - - [facility] Work Phone: Start: 10-13-2022 End: 11-16-2023 Never a smoker Never a smoker -[facility] Work Phone: Start: 08-31-2022 End: 06-30-2024 Tobacco smoking status NHIS Never smoked tobacco [facility] Work Phone: Start: 08-31-2022 Tobacco use and exposure Smokeless tobacco non-user [facility] Work Phone: Start: 10-13-2022 End: 12-04-2023 Alcohol intake Lifetime non-drinker (finding) [facility] Work Phone: Start: 10-13-2022 End: 11-16-2023 Tobacco use panel [facility] Work Phone: Start: 1945 Sex Assigned At [facility] Work Phone: Start: 10-03-2022 End: 02-28-2024 Exposure to SARS-CoV-2 (event) Not sure [facility] Start: 04-10-2023 End: 08-02-2023 Exposure to SARS-CoV-2 (event) Unable to assess [facility] How often to you hav e a drink containing alcohol? Never [facility] How many standard drinks containing alcohol do you have on a typical day? Patient does not drink [facility] Work Phone: In the past 12 months, was there a time when you were not able to pay the mortgage or rent on time? No [facility] Start: 06-13-2024 End: 07-15-2024 Sex Female (finding) [facility] Start: 1945 Sex Assigned At Female W [facility] NEGATED: Highlighted row Not [facility] Medical Equipment Procedure Code Equipment Code Equipment Origin al Text Equipment Identifier Dates Colonoscopy CLIP,RESO 360 UL TRA 235_17 FDA Start: 07-01-2024 Colonoscopy CLIP,RESO 360 UL TRA 235_17 FDA Start: 07-01-2024 Colonoscopy CLIP,RESO 360 UL TRA 235_17 FDA Start: 07-01-2024 Colonoscopy CLIP,RESO 360 UL TRA 235_17 FDA Start: 07-01-2024 Colonoscopy CLIP,RESO 360 UL TRA 235_17 FDA Start: 07-01-2024 Goals Date Patient Goal Desired Activity /State Functional Status Date Assessment Result Facility NEGATED: Highlighted row Functional performance Functional status health issues are not documented Disease [facility] Work Phone: Mental Status Date Assessment Result Facility 07-01-2024 Cognitive function Voice/Name [facility] Work Phone: 03-28-2024 Cognitive function Level Of Cons ciousness Awake;Alert;Appropriate ;Follows Commands [facility] Work Phone: NEGATED: Highlighted row Cognitive function [Interpretation] Cognitive status health issues are not documented Disease [facility] Work Phone: Clinical Notes 02-14-2019 to 07-01-2024 Note Date & Type Note Facility 07-01-2024 History and physi sofi note Note Date/Time July 01, 2024 12:39pm [facility] Medical Records Department [address] [place] [address] History & Physical Exam 07/01/24 1237 MR#: [id number] Acct: [id number] Name: DARYN SHAH BLANE Rep #:[id number] : 1945 78 From: Jacinto Friend PCP: April Mullen MD [place] [facility] [place] [address] HPI - General General Date of Admission: 07/01/24 Date of Service: 07/01/24 Chief Complaint: Anemia HPI Narrative DARYN SHAH, is a 78 F who presents for the evaluation of anemia LABS 04/14/2024 HGB 7.7, MCV 78, Fe 17 04/07/2024 HGB 7.5 04/03/2024 HGB 7.2 03/28/2024 HGB 76.9 01/28/2024 HGB 8.4 01/09/2024 HGB 9.7 12/03/2023 HGB 9.4 - per patient last colon was in 2019 - she reports her initial colonoscopy priorto 2019 did reveal colon polyps - she was adopted and does not know her family history - denies any h/o EGD - reports her Xarelto was discontinued - now taking ASA 325mg daily - this was started 04/04/2024 - started on Fe 325mg daily on 04/15/2024 - Famotidine 20mg BID - denies any HB or indigestion - Vitamin C BID - reports she has had a weight loss of 100lbs over the past few years due to decreased mobility which has resulted in decreased snacking - she also reports prior to admission to [facility] she had 30-40lb of peripheral edema - admitted to nursing facility 10/15/2023 - C. Diff a year ago - states her stools have never been the same - denies having any diarrhea or frequent BM - stools are now soft - denies any epistaxis - denies any h/o GIB - denies any melena - denies any BRBPR - denies any HB - denies any ABD pain - denies any N/V - denies any SOB - CKD (GFR 52) - Easy bruising [facility] Medical History (Updated 07/01/24 @ 12:[address] Casey Friend, DO) Lives in jail Wears glasses Wears partial dentures Marijuana use Discoloration of skin Open wound Insulin dependent diabetes mellitus Uses wheelchair Arthritis History of renal disease Low iron High cholesterol Back pain Dietary restriction History of GI bleed Non-smoker Chronic cough History of edema History of echocardiogram Cardiology follow-up encounter History of CHF (congestive heart failure) History of atrial fibrillation Palpitations Magnesium deficiency Diarrhea Asthma Vertebral osteomyelitis Discitis of thoracic region Intractable back pain Syndrome of inappropriate secretion of antidiuretic hormone Age-related incipient cataract of both eyes Iron deficiency anemia Generalized muscle weakness Morbid obesity with BMI of 40.0-44.9, adult Vitamin D deficiency Venous stasis ulcer with varicose veins Renal lesion Primary osteoarthritis of both knees History of colonic polyps Neurodermatitis Lymphedema of leg Lumbar facet arthropathy Benign essential hypertension Anemia Anxiety Depression CHF (congestive heart failure) A-fib COPD (chronic obstructive pulmonary disease) Kidney disease Diabetes Hyperlipidemia History of ESBL E. coli infection History of infection with vancomycin resistant Enterococcus (VRE) Altered mental status Home Medications ?Medication ?Instructions ?Recorded ?Last Taken ?Type cholecalciferol (vitamin D3) 25 25 mcg PO DAILY Unknown History mcg (1,000 unit) capsule insulin lispro 100 unit/mL See Protocol subcut .TIDCM& HS 12/31/23 Unknown History subcutaneous pen (Humalog KwikPen (U-100) Insulin) multivitamin (Daily Multi-Vitamin 1 tab PO DAILY 12/30 Unknown History tablet) nystatin 100,000 unit/gram topical 1 applic topical BI D PRN skin 12/31/23 Unknown History powder irritation polyethylene glycol 3350 17 17 g PO BID PRN constipati on 12/31/23 Unknown History gram/dose oral powder potassium chloride 10 mEq 20 meq PO DAILY 12/31/23 Unk nown History capsule,extended release sennosides 8.6 mg tablet 17.2 mg PO BID PRN constipat ion 12/31/23 Unknown History venlafaxine 75 mg capsule,extended 150 mg PO DAILY Unknown History release 24 hr ascorbic acid (vitamin C) 500 mg 500 mg PO BIDCM #0 ta bs 01/08/24 Unknown Rx tablet carvedilol 3.125 mg tablet 3.125 mg PO BID #0 tabs 05/02 Unknown Rx lisinopril 2.5 mg tablet 2.5 mg PO DAILY #0 tabs 05/02 Unknown Rx melatonin 3 mg tablet 6 mg (2 x 3 mg) PO QHS #0 ta bs 01/08/24 Unknown Rx buspirone 5 mg tablet 5 mg PO BID 03/28/24 Unknown History dapagliflozin propanediol 5 mg 5 mg PO DAILY 03/28/24 Unknown History tablet (Farxiga) aspirin 325 mg tablet 325 mg PO QDAY 04/28/24 Unkn own History ferrous sulfate 325 mg (65 mg 325 mg PO QDAY 04/28/24 Unknown History iron) tablet furosemide 20 mg tablet 20 mg PO QAM 04/28/24 Unknow n History pantoprazole 40 mg tablet,delayed 40 mg PO QDAY #90 ta bs 04/28/24 Unknown Rx release cyclobenzaprine 10 mg tablet 5 mg PO TID 06/10/24 Unkn own History acetaminophen 325 mg tablet 650 mg PO Q4H PRN Pain 1- Or 06/30/24 Unknown History Fever>100.7 albuterol sulfate 90 mcg/actuation 2 inh inhalation Q6 H PRN shortness 06/30/24 Unknown History aerosol inhaler of breath or wheezing escitalopram oxalate 10 mg tablet 15 mg PO DAILY 06/30 Unknown History (Lexapro) guaifenesin 400 mg tablet 400 mg PO Q4H PRN cough 06/08 08/01 Unknown History insulin glargine 100 unit/mL (3 8 unit subcut DAILY 07/01/24 History mL) subcutaneous pen (Lantus Solostar U-100 Insulin) polyethylene glycol 3350 17 17 g PO QODAY 06/30/24 Unk nown History gram/dose oral powder (Miralax) Allergy/AdvReac Type Severity Reaction Status Date / Time No Known Allergies Allergy Verified 07/01/24 11:58 Family History Mother Alzheimer dementia Breast cancer Heart disease Brother Cystic fibrosis Surgical History History of colonoscopy S/P laminectomy History of tubal ligation Hx of cholecystectomy H/O section Social History Smoking Status: Never smoker alcohol intake: never ROS Constitutional Constitutional: Denies fatigue, fever(s), poor appetite, weight gain or weight loss Gastrointestinal Gastrointestinal: Denies belching, bloating, change in bowel habits, change in stool character, chewing difficulty, coffee ground emesis, constipation, cramping, diarrhea, dyspepsia, dysphagia, early satiety, excessive flatus, fecalincontinence, heartburn, hematemesis, hematochezia, hemorrhoids, loose stools, melena, nausea, odynophagia, rectal bleeding, tenesmus, vomiting or weight changes Vital Signs Vital Signs Vital Signs: 07/01/24 11:58 07/01/24 11:58 07/01/24 12:29 Temperature 98.3 F 98.3 F Temperature Source Temporal Pulse Rate 90 90 Respiratory Rate 16 16 Respiratory Pattern Normal Blood Pressure 112/84 H 112/84 H Blood Pressure Mean 93 Blood Pressure Source Monitor Blood Pressure Position Semi-Fowlers Blood Pressure Location Left Arm Pulse Ox 98 98 Oxygen Delivery Method Room Air Room Air Weight Weight: 201 lb Body Mass Index (BMI) 32.4 Physical Exam Const alert, oriented x3, no apparent distress and healthy appearing General Appearance: cooperative GI normal to inspection, nondistended, normoactive bowel sounds, soft to palpation,non-tender and non-distended Percussion: normal to percussion Rectal Exam: deferred Results Lab / Micro Data Labs: Laboratory Results - last 24 hr 07/01/24 11:42: POC Glucose 62 L Assessment & Plan Assessment/Plan (1) Anemia: PLAN: Assessment and Plan Assessment and Plan (1) Anemia: Qualifiers: Anemia type: iron deficiency Iron deficiency anemia type: unspecified iron deficiency Qualified Code(s): D50.9 - Iron deficiency anemia, unspecified Orders: Orders CBC W/Diff, Automated 2 Weeks D64.9 - Anemia, unspecified Medications: New pantoprazole 40 mg PO QDAY 90 tabs 1RF peg 3350-electrolytes 236-22.74-6.74 -5.86 gram (Golytely) take as directed for split dose bowel prep, until fecal effluent is clear 240mL PO Q10M 4,000 mL 0RF Discontinued famotidine Discontinued Reason: Order Changed 20 mg PO BID Plan 78y/o female presents for consultation of anemia. PMH is significant for anemia,CHF, A-fib on Xarelto, COPD, IDDM, chronic kidney disease. She was seen in the ED on 03/28/2024 for HGB 6.9 without any s/s of bleeding. Labs completed in ED revealed HGB 7.7 with occult positive stools. Xarelto has been discontinued and she is now taking ASA 325mg daily. She has also been started on ferrous sulfate 325mg daily. Most recent labs completed 04/14/2024 revealed HGB stable at 7.7. I have discontinued famotidine and started her on PPI daily. She will proceed withcolonoscopy and EGD. I recommend a repeat CBC in 2 weeks. Patient Instructions: 1. Discontinue Famotidine 2. Start pantoprazole 40mg QD 3. CBC in 2 weeks 4. Colonoscopy and EGD - scheduled at [facility] with Dr. Munoz (Golyte bowel prep) 5. Follow-up in the office 1-2 weeks post procedure 07/01/24 1239 <Electronically signed by Jacinto Munoz DO> Cosigner Signature (if applicable): CC: April Mullen MD; Jacinto Munoz DO~ Signed [facility] Work Phone: 1(802) 120-837903-25-2025 Consult note Author Manuel Campuzano [facility] Note Date/Time July 01, 2024 12: 33pm [facility] Medical Records Department [address] [place] [address] Pre-Anesthesia Evaluation 07/01/24 1219 MR#: [id number] Acct: [id number] Name: DARYN SHAH Rep #:[id number] : 1945 78 From: Manuel Campuzano MD PCP: April Mullen MD Status:REG SDC Y Race: C Location: [place] [address] ASA Classification* ASA Classification ASA Classification: 3 Assessment & Plan Anesthesia* Anesthesia Assessment Anesthesia Assessment: Discussed sedation and/or anesthesia options, risks, benefits, and alternatives with patient/parents/legal guardian/POA. Questions invited. The patient/parents/legal guardian/POA seems to understand and agrees to proceedwith anesthesia plan. Reviewed the physical assessment, medical history, allergy history and patient home medications list prior to surgery/procedure/anesthetic and documented any changes. Performed airway and anesthesia risk assessments. Anesthesia Type Anesthesia Type: MAC (Moderate aortic stenosis. Avoid increases heart rates andlow blood pressure. Consider phenylephrine as a vasoactive agent) History Source History Obtained from:: Patient and Chart Anesthesia Focused Assessment* Temperature: 98.3 F Pulse Rate: 90 Blood Pressure: 112/84 Respiratory Rate: 16 Pulse Ox: 98 Oxygen Delivery Method: Room Air Airway Assessment Mouth opens: >3 cm Mallampati Score: I Teeth Condition: Dentures (Upper dentures are out.) and Missing (Edentulous on the bottom.) Neck Range of motion (ROM): Limited ROM (Somewhat decreased extension) Focused Labs Anesthesia Preop lab: CBC WBC 6.3 K/mm3 (4.4-11.0) 06/24/24 07:00 06/24/24 RBC 4.14 M/mm3 (4.2-5.4) L 06/24/24 07:00 06/24/24 Hgb 10.3 g/dL (12.0-15.0) L 06/24/24 07:00 5 Hct 32.9 % (37-47) L 06/24/24 07:00 06/24/24 Plt Count 137 K/mm3 (150-450) L 06/24/24 07:00 06/24/24 CHEMISTRY Potassium 3.8 mmol/L (3.3-5.1) 06/24/24 07:00 06/24/24 Sodium 140 mmol/L (133-145) 06/24/24 07:00 06/24/24 Magnesium 1.7 mg/dL (1.6-2.6) 01/02/24 03:30 01/02/24 Phosphorus 3.4 mg/dL (2.5-4.9) 01/01/24 04:42 01/01/24 BUN 21 mg/dL (4-19) H 06/24/24 07:00 06/24/24 Creatinine 1.16 mg/dL (0.70-1.20) 06/24/24 07:00 06/24/24 Glucose 102 mg/dL (70-99) H 06/24/24 07:00 06/24/24 POC Glucose 62 mg/dL (74-106) L 07/01/24 11:42 07/01/24 TSH 1.650 uIU/mL (0.358-3.740) 01/01/24 04:42 12/09 07/31 COAG PT 20.9 SECONDS (11.7-14.9) H 12/31/23 17:57 12/09 06/30 Pre-Assessment Diagnosis/Proposed Procedure Planned Operative Procedure(s): CSCOPE/EGD Anesthesia History Anesthesia History - international marketing manager: Anesthesia History - international marketing manager Hx Hospitalization Yes: 12/2023 PNEUMONIA AND 06/30/24 11:18 COVID Any Problems With Anesthesia No 06/30/24 11:18 Cholinesterase deficiency No 06/30/24 11:18 You/Your Family Experience No 06/30/24 11:18 fever (hyperthermia) with Relationship Recent Exposure to Contagious No 07/01/24 11:58 Disease Does patient have nerve No 06/30/24 11:18 stimulator Patient instructed to have device shut off --Does patient have Pacemaker No 07/01/24 11:58 or ICD? When Was Last Pacemaker Check QUESTION #4 FULL TEXT: You/Your Family Experience fever (hyperthermia) with Anesthesia Last Oral Intake Last Oral intake: Last Oral Intake NPO since Meds taken in AM with sips of water? Meds patient instructed to take am of surgery Any additional information?: Yes NPO since: 00:00 Meds taken in AM with sips of water?: No PONV PONV - international marketing manager: PONV - international marketing manager Female Yes 06/30/24 11:18 HX of Motion Sickness No 06/30/24 11:18 HX of N/V After Surgery No 06/30/24 11:18 Non-Smoker Yes 06/30/24 11:18 Duration of Surgery greater No 06/30/24 11:18 than 60 minutes Number of Risk Factors 2 06/30/24 11:18 PONV Score Moderate Risk 06/30/24 11:18 Height & Weight Height & Weight: Anesthesia: Height & Weight Height 5 ft 6 in 07/01/24 11:58 Weight: 91.172 kg 07/01/24 11:58 Body Mass Index (BMI) 32.4 07/01/24 11:58 Respiratory Assessment Respiratory Assessment - international marketing manager: Respiratory Tract Infection Hx - international marketing manager Hx Respiratory Tract Infection No 06/30/24 11:18 STOP Sleep Apnea STOP Sleep Apnea - international marketing manager: STOP Sleep Apnea - international marketing manager Hx Hypertension Yes 06/30/24 11:18 Hx Sleep Apnea No 06/30/24 11:18 CPAP BIPAP Do you snore loudly (louder No 06/30/24 11:18 than talking or can be heard Do you often feel tired/ No 06/30/24 11:18 fatigued/ sleepy during daytime? Has anyone observed you stop No 06/30/24 11:18 breathing during sleep? STOP Results Negative 06/30/24 11:18 QUESTION #5 FULL TEXT : Do you snore loudly (louder than talking or can be heard through closed doors)? 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 Specify any problems Hx of Preganancy in last 3 No 06/30/24 11:18 Months Nurse Filling Out Transfusion DSCHRIBER 06/30/24 11:18 & Questions: Date: 06/30/24 06/30/24 11:18 Time: 11:21 06/30/24 11:18 Patient unable to answer at this time (ie. confused, unrespo /Reproduction History /Reproductive History - international marketing manager: /Reproductive Hx- international marketing manager Hx Now No 06/30/24 11:18 Gestational Age (in weeks): EDC: Hx Hx Para Hx Section SAB No 06/30/24 11:18 [facility] Medical History Lives in jail Wears glasses Wears partial dentures Marijuana use Discoloration of skin Open wound Insulin dependent diabetes mellitus Uses wheelchair Arthritis History of renal disease Low iron High cholesterol Back pain Dietary restriction History of GI bleed Non-smoker Chronic cough History of edema History of echocardiogram Cardiology follow-up encounter History of CHF (congestive heart failure) History of atrial fibrillation Palpitations Magnesium deficiency Diarrhea Asthma Vertebral osteomyelitis Discitis of thoracic region Intractable back pain Syndrome of inappropriate secretion of antidiuretic hormone Age-related incipient cataract of both eyes Iron deficiency anemia Generalized muscle weakness Morbid obesity with BMI of 40.0-44.9, adult Vitamin D deficiency Venous stasis ulcer with varicose veins Renal lesion Primary osteoarthritis of both knees History of colonic polyps Neurodermatitis Lymphedema of leg Lumbar facet arthropathy Benign essential hypertension Anemia Anxiety Depression CHF (congestive heart failure) A-fib COPD (chronic obstructive pulmonary disease) Kidney disease Diabetes Hyperlipidemia History of ESBL E. coli infection History of infection with vancomycin resistant Enterococcus (VRE) Altered mental status Home Medications ?Medication ?Instructions ?Recorded ?Last Taken ?Type cholecalciferol (vitamin D3) 25 25 mcg PO DAILY Unknown History mcg (1,000 unit) capsule insulin lispro 100 unit/mL See Protocol subcut .TIDCM& HS 12/31/23 Unknown History subcutaneous pen (Humalog KwikPen (U-100) Insulin) multivitamin (Daily Multi-Vitamin 1 tab PO DAILY 12/30 Unknown History tablet) nystatin 100,000 unit/gram topical 1 applic topical BI D PRN skin 12/31/23 Unknown History powder irritation polyethylene glycol 3350 17 17 g PO BID PRN constipati on 12/31/23 Unknown History gram/dose oral powder potassium chloride 10 mEq 20 meq PO DAILY 12/31/23 Unk nown History capsule,extended release sennosides 8.6 mg tablet 17.2 mg PO BID PRN constipat ion 12/31/23 Unknown History venlafaxine 75 mg capsule,extended 150 mg PO DAILY Unknown History release 24 hr ascorbic acid (vitamin C) 500 mg 500 mg PO BIDCM #0 ta bs 01/08/24 Unknown Rx tablet carvedilol 3.125 mg tablet 3.125 mg PO BID #0 tabs 05/02 Unknown Rx lisinopril 2.5 mg tablet 2.5 mg PO DAILY #0 tabs 05/02 Unknown Rx melatonin 3 mg tablet 6 mg (2 x 3 mg) PO QHS #0 ta bs 01/08/24 Unknown Rx buspirone 5 mg tablet 5 mg PO BID 03/28/24 Unknown History dapagliflozin propanediol 5 mg 5 mg PO DAILY 03/28/24 Unknown History tablet (Farxiga) aspirin 325 mg tablet 325 mg PO QDAY 04/28/24 Unkn own History ferrous sulfate 325 mg (65 mg 325 mg PO QDAY 04/28/24 Unknown History iron) tablet furosemide 20 mg tablet 20 mg PO QAM 04/28/24 Unknow n History pantoprazole 40 mg tablet,delayed 40 mg PO QDAY #90 ta bs 04/28/24 Unknown Rx release cyclobenzaprine 10 mg tablet 5 mg PO TID 06/10/24 Unkn own History acetaminophen 325 mg tablet 650 mg PO Q4H PRN Pain 1- Or 06/30/24 Unknown History Fever>100.7 albuterol sulfate 90 mcg/actuation 2 inh inhalation Q6 H PRN shortness 06/30/24 Unknown History aerosol inhaler of breath or wheezing escitalopram oxalate 10 mg tablet 15 mg PO DAILY 06/30 Unknown History (Lexapro) guaifenesin 400 mg tablet 400 mg PO Q4H PRN cough 06/08 08/01 Unknown History insulin glargine 100 unit/mL (3 8 unit subcut DAILY 07/01/24 History mL) subcutaneous pen (Lantus Solostar U-100 Insulin) polyethylene glycol 3350 17 17 g PO QODAY 06/30/24 Unk nown History gram/dose oral powder (Miralax) Allergy/AdvReac Type Severity Reaction Status Date / Time No Known Allergies Allergy Verified 07/01/24 11:58 Family History Mother Alzheimer dementia Breast cancer Heart disease Brother Cystic fibrosis Surgical History History of colonoscopy S/P laminectomy History of tubal ligation Hx of cholecystectomy H/O section Social History Smoking Status: Never smoker alcohol intake: never Review of Systems (Anesthesia) ROS Narrative System reviewed and no additional complaints, except as documented. 07/01/24 1233 <Electronically signed by Manuel farrar MD> Date _ Manuel Campuzano MD Cosigner Signature: Date CC: ~ Signed [facility] Work Phone: 1(519) 764-634103-25-2025 Procedure note [facility] Medical Records Department [address] [place] [id number] Colonoscopy Report MR#: [id number] Acct: [id number] Name: DARYN SHAH BLANE Rep #:[id number] : 1945 78 From: Jacinto Munoz DO PCP: April Mullen MD Status:[facility] Patient Name: Daryn Shah Procedure Date: 07/01/2024 1:21 PM Date of : 1945 Age: 78 Procedure: Colonoscopy Indications: Screening for colorectal malignant neoplasm Providers: Jacinto Munoz DO Referring MD: April Mullen Md Medicines: Monitored Anesthesia Care Patient Profile: This is a 78 year old female. Refer to note in patient chart for documentation of history and physical. Patient has symptoms of acute epigastric abdominal pain. Last Colonoscopy: none. The patient's first colonoscopy is today. Complications: No immediate complications. Procedure: Pre-Anesthesia Assessment: - Prior to the procedure, a History and Physical was performed, and patient medications and allergies were reviewed. The patient is competent. The risks and benefits of the procedure and the sedation options and risks were discussed with the patient. All questions were answered and informed consent was obtained. Patient identification and proposed procedure were verified by the physician in the pre-procedure area. Mental Status Examination: alert and oriented. Airway Examination: normal oropharyngeal airway and neck mobility. Respiratory Examination: clear to auscultation. CV Examination: normal. ASA Grade Assessment: II - A patient with mild systemic disease. After reviewing the risks and benefits, the patient was deemed in satisfactory condition to undergo the procedure. The anesthesia plan was to use monitored anesthesia care (MAC). Immediately prior to administration of medications, the patient was re-assessed for adequacy to receive sedatives. The heart rate, respiratory rate, oxygen saturations, blood pressure, adequacy of pulmonary ventilation, and response to care were monitored throughout the procedure. The physical status of the patient was re-assessed after the procedure. After I obtained informed consent, the scope was passed under direct vision. Throughout the procedure, the patient's blood pressure, pulse, and oxygen saturations were monitored continuously. The colonoscope was introduced through the anus and advanced to the terminal ileum, with identification of the appendiceal orifice and IC valve. The colonoscopy was performed without difficulty. The patient tolerated the procedure well. The quality of the bowel preparation was adequate. The ileocecal valve, appendiceal orifice, and rectum were photographed. Scope In: 1:23:54 PM Scope Withdrawal Time 0 hours 14 minutes 21 seconds Scope Out: 1:53:07 PM Total Procedure Duration Time 0 hours 29 minutes 13 seconds Findings: The perianal and digital rectal examinations were normal. A few small and large-mouthed diverticula were found in the recto-sigmoid colon, sigmoid colon and descending colon. A 20 mm polyp was found in the cecum. The polyp was sessile. The polyp was removed with a hot snare. Resection and retrieval were complete. Verification of patient identification for the specimen was done. To prevent bleeding post-intervention, one hemostatic clip was successfully placed. Clip racetrack steward: [place]. There was no bleeding at the end of the procedure. Impression: - Diverticulosis in the recto-sigmoid colon, in the sigmoid colon and in the descending colon. - One 20 mm polyp in the cecum, removed with a hot snare. Resected and retrieved. Clip was placed. Clip racetrack steward: Lima. Recommendation: - Repeat colonoscopy in 3 years for surveillance. - Continue present medications. Procedure Code(s): --- Professional --- 14326, Colonoscopy, flexible; with removal of tumor(s), polyp(s), or other lesion(s) by snare technique CPT copyright 2021 [employer]. All rights reserved. The codes documented in this report are preliminary and upon label tacker review may be revised to meet current compliance requirements. Jacinto Munoz DO 07/01/2024 2:07:31 PM This report has been signed electronically. Number of Addenda: 0 Note Initiated On: 07/01/2024 1:21 PM 07/01/24 1407 Date _ Jacinto Munoz DO Cosigner Signature: Date (if indicated) CC: April Mullen MD; Jacinto Munoz DO ~ Date Dictated: 07/01/24 1321 Date Transcribed: Continuity Director: RF Signed [facility]03-25-2025 Procedure note [facility] Medical Records Department [address] [place] [id number] Operative Report - CC Letter MR#: [id number] Acct: [id number] Name: DARYN SHAH BLANE Rep #:[id number] 3 : 1945 78 From: Jacinto Munoz DO PCP: April Mullen MD Status[place] 07/01/2024 April Mullen Md Re : Colonoscopy procedure for Daryn Shah Dear Dr. Mullen This procedure was performed on Monday, July 01, 2024. My impressions and recommendations are as follows: Impressions : - Diverticulosis in the recto-sigmoid colon, in the sigmoid colon and in the descending colon. - One 20 mm polyp in the cecum, removed with a hot snare. Resected and retrieved. Clip was placed. Clip racetrack steward: Lima. Recommendations : - Repeat colonoscopy in 3 years for surveillance. - Continue present medications. My findings are described in the full procedure note, which is enclosed. If I can be of further assistance, please feel free to contact me at . Sincerely, Jacinto Munoz DO 07/01/2024 2:07:31 PM This report has been signed electronically. 07/01/241406 Date _ Jacinto Sheltonigner Signature: Date (if indicated) CC: April Mullen MD; Jacinto Munoz DO ~ Date Dictated: 07/01/24 1321 Date Transcribed: Continuity Director: RF Signed [facility]03-25-2025 Consult note [facility] Medical Records Department [address] [place] [address] Anesthesia Postop Eval I 07/01/241405 MR#: [id number] Acct: [id number] Name: DARYN SHAH BLANE Rep #:[id number] 1 : 1945 78 From: Jones Greer PCP: April Mullen MD Status:[facility] [place] Race: C Location: [place] [address] Anesthesia: Postop Eval I Current Vital Signs Temperature: 97.6 F Pulse Rate: 88 Blood Pressure: 110/87 Respiratory Rate: 18 Pulse Ox: 96 Oxygen Delivery Method: Room Air Assessment Airway patent: Yes Spontaneous unlabored respirations: Yes Mental status: Awake and Calm nausea: No Vomiting: No Anesthesia Complication: No Fluid Hydration Crystalloid volume administer (ml): 90 Total IV fluid infused: 90 Progress Note Anesthesia document: Postop Eval 1 completed: Yes 07/01/24 140 > Date _ Jones Acevedo Signature: Date CC: ~ Signed [facility]03-25-2025 Procedure note [facility] Medical Records Department [address] [place] [address] EGD Report MR#: [id number] Acct: [id number] Name: DARYN SHAH Rep #:[id number] 6 : 1945 78 From: Jacinto Munoz DO PCP: April Mullen MD Status:[facility] Patient Name: Daryn Shah Procedure Date: 07/01/2024 1:01 PM Date of : 1945 Age: 78 Procedure: Upper GI endoscopy Indications: Epigastric abdominal pain, Iron deficiency anemia Providers: Jacinto Munoz DO Referring MD: April Mullen Md Medicines: Monitored Anesthesia Care Patient Profile: This is a 78 year old female. Refer to note in patient chart for documentation of history and physical. Patient has symptoms of acute epigastric abdominal pain. Complications: No immediate complications. Procedure: Pre-Anesthesia Assessment: - Prior to the procedure, a History and Physical was performed, and patient medications and allergies were reviewed. The patient is competent. The risks and benefits of the procedure and the sedation options and risks were discussed with the patient. All questions were answered and informed consent was obtained. Patient identification and proposed procedure were verified by the physician in the pre-procedure area. Mental Status Examination: alert and oriented. Airway Examination: normal oropharyngeal airway and neck mobility. Respiratory Examination: clear to auscultation. CV Examination: normal. ASA Grade Assessment: II - A patient with mild systemic disease. After reviewing the risks and benefits, the patient was deemed in satisfactory condition to undergo the procedure. The anesthesia plan was to use monitored anesthesia care (MAC). Immediately prior to administration of medications, the patient was re-assessed for adequacy to receive sedatives. The heart rate, respiratory rate, oxygen saturations, blood pressure, adequacy of pulmonary ventilation, and response to care were monitored throughout the procedure. The physical status of the patient was re-assessed after the procedure. After obtaining informed consent, the endoscope was passed under direct vision. Throughout the procedure, the patient's blood pressure, pulse, and oxygen saturations were monitored continuously. The colonoscope was introduced through the mouth, and advanced to the fourth part of the duodenum. Small bowel enteroscopy was deemed necessary. The upper GI endoscopy was accomplished without difficulty. The patient tolerated the procedure well. Scope In: 1:15:28 PM Scope Out: 1:21:00 PM Total Procedure Duration Time 0 hours 5 minutes 32 seconds Findings: No gross lesions were noted in the entire esophagus. One non-bleeding linear gastric ulcer with no stigmata of bleeding was found in the gastric antrum. The lesion was 5 mm in largest dimension. Biopsies were taken with a cold forceps for histology. Verification of patient identification for the specimen was done. Estimated blood loss was minimal. Biopsies were taken with a cold forceps for Helicobacter pylori testing. Verification of patient identification for the specimen was done. Estimated blood loss was minimal. No gross lesions were noted in the third portion of the duodenum. Biopsies were taken with a cold forceps for histology. Verification of patient identification for the specimen was done. Estimated blood loss was minimal. Impression: - No gross lesions in the entire esophagus. - Non-bleeding gastric ulcer with no stigmata of bleeding. Biopsied. - No gross lesions in the third portion of the duodenum. Biopsied. Recommendation: - Discharge patient to home. - Resume previous diet. - Continue present medications. - Await pathology results. - Repeat upper endoscopy to check healing. Procedure Code(s): --- Professional --- 18916, Small intestinal endoscopy, enteroscopy beyond second portion of duodenum, not including ileum; with biopsy, single or multiple CPT copyright 2021 [employer]. All rights reserved. The codes documented in this report are preliminary and upon label tacker review may be revised to meet current compliance requirements. Jacinto Munoz DO 07/01/2024 2:05:15 PM This report has been signed electronically. Number of Addenda: 0 Note Initiated On: 07/01/2024 1:01 PM 07/01/24 9456 Date _ Jacinto Harper Signature: Date (if indicated) CC: April Mullen MD; Jacinto Munoz DO ~ Date Dictated: 07/01/24 1301 Date Transcribed: Continuity Director: RF Signed [facility]03-25-2025 Procedure note [facility] Medical Records Department [address] [place] [address] Operative Report - CC Letter MR#: [id number] Acct: [id number] Name: DARYN SHAH Rep #:[id number] : 1945 78 From: Jacinto Munoz DO PCP: April Mullen MD Status:[facility] 07/01/2024 April Mullen Md Re : Upper GI endoscopy procedure for Daryn Shah Dear Dr. Mullen This procedure was performed on Monday, July 01, 2024. My impressions and recommendations are as follows: Impressions : - No gross lesions in the entire esophagus. - Non-bleeding gastric ulcer with no stigmata of bleeding. Biopsied. - No gross lesions in the third portion of the duodenum. Biopsied. Recommendations : - Discharge patient to home. - Resume previous diet. - Continue present medications. - Await pathology results. - Repeat upper endoscopy to check healing. My findings are described in the full procedure note, which is enclosed. If I can be of further assistance, please feel free to contact me at . Sincerely, Jacinto Munoz DO 07/01/2024 2:05:15 PM This report has been signed electronically. 07/01/241404 Date _ Jacinto Friend DO Cosigner Signature: Date (if indicated) CC: April Mullen MD; Jacinto Munoz DO ~ Date Dictated: 07/01/24 1301 Date Transcribed: Continuity Director: RF Signed [facility]03-25-2025 History and physical note [facility] Medical Records Department [address] [place] [address] History & Physical Exam 07/01/24 1237 MR#: [id number] Acct: [id number] Name: DARYN SHAH Rep #:[id number] 5 : 1945 78 From: Jacinto Munoz DO PCP: April Mullen MD Status:[facility] Location: [place] [address] HPI - General General Date of Admission: 07/01/24 Date of Service: 07/01/24 Chief Complaint: Anemia HPI Narrative DARYN SHAH, is a 78 F who presents for the evaluation of anemia LABS 04/14/2024 HGB 7.7, MCV 78, Fe 17 04/07/2024 HGB 7.5 04/03/2024 HGB 7.2 03/28/2024 HGB 76.9 01/28/2024 HGB 8.4 01/09/2024 HGB 9.7 12/03/2023 HGB 9.4 - per patient last colon was in 2018 - she reports her initial colonoscopy priorto 2018 did reveal colon polyps - she was adopted and does not know her family history - denies any h/o EGD - reports her Xarelto was discontinued - now taking ASA 325mg daily - this was started 04/04/2024 - started on Fe 325mg daily on 04/15/2024 - Famotidine 20mg BID - denies any HB or indigestion - Vitamin C BID - reports she has had a weight loss of 100lbs over the past few years due to decreased mobility which has resulted in decreased snacking - she also reports prior to admission to [facility] she had 30-40lb of peripheral edema - admitted to nursing facility 10/15/2023 - Trace Diff a year ago - states her stools have never been the same - denies having any diarrhea or frequent BM - stools are now soft - denies any epistaxis - denies any h/o GIB - denies any melena - denies any BRBPR - denies any HB - denies any ABD pain - denies any N/V - denies any SOB - CKD (GFR 52) - Easy bruising [facility] Medical History (Updated 07/01/24 @ 12:[address] Casey Friend, DO) Lives in jail Wears glasses Wears partial dentures Marijuana use Discoloration of skin Open wound Insulin dependent diabetes mellitus Uses wheelchair Arthritis History of renal disease Low iron High cholesterol Back pain Dietary restriction History of GI bleed Non-smoker Chronic cough History of edema History of echocardiogram Cardiology follow-up encounter History of CHF (congestive heart failure) History of atrial fibrillation Palpitations Magnesium deficiency Diarrhea Asthma Vertebral osteomyelitis Discitis of thoracic region Intractable back pain Syndrome of inappropriate secretion of antidiuretic hormone Age-related incipient cataract of both eyes Iron deficiency anemia Generalized muscle weakness Morbid obesity with BMI of 40.0-44.9, adult Vitamin D deficiency Venous stasis ulcer with varicose veins Renal lesion Primary osteoarthritis of both knees History of colonic polyps Neurodermatitis Lymphedema of leg Lumbar facet arthropathy Benign essential hypertension Anemia Anxiety Depression CHF (congestive heart failure) A-fib COPD (chronic obstructive pulmonary disease) Kidney disease Diabetes Hyperlipidemia History of ESBL E. coli infection History of infection with vancomycin resistant Enterococcus (VRE) Altered mental status Home Medications ?Medication ?Instructions ?Recorded ?Last Taken ?Type cholecalciferol (vitamin D3) 25 25 mcg PO DAILY Unknown History mcg (1,000 unit) capsule insulin lispro 100 unit/mL See Protocol subcut .TIDCM& HS 12/31/23 Unknown History subcutaneous pen (Humalog KwikPen (U-100) Insulin) multivitamin (Daily Multi-Vitamin 1 tab PO DAILY 12/30 Unknown History tablet) nystatin 100,000 unit/gram topical 1 applic topical BI D PRN skin 12/31/23 Unknown History powder irritation polyethylene glycol 3350 17 17 g PO BID PRN constipati on 12/31/23 Unknown History gram/dose oral powder potassium chloride 10 mEq 20 meq PO DAILY 12/31/23 Unk nown History capsule,extended release sennosides 8.6 mg tablet 17.2 mg PO BID PRN constipat ion 12/31/23 Unknown History venlafaxine 75 mg capsule,extended 150 mg PO DAILY Unknown History release 24 hr ascorbic acid (vitamin C) 500 mg 500 mg PO BIDCM #0 ta bs 01/08/24 Unknown Rx tablet carvedilol 3.125 mg tablet 3.125 mg PO BID #0 tabs 05/02 Unknown Rx lisinopril 2.5 mg tablet 2.5 mg PO DAILY #0 tabs 05/02 Unknown Rx melatonin 3 mg tablet 6 mg (2 x 3 mg) PO QHS #0 ta bs 01/08/24 Unknown Rx buspirone 5 mg tablet 5 mg PO BID 03/28/24 Unknown History dapagliflozin propanediol 5 mg 5 mg PO DAILY 03/28/24 Unknown History tablet (Farxiga) aspirin 325 mg tablet 325 mg PO QDAY 04/28/24 Unkn own History ferrous sulfate 325 mg (65 mg 325 mg PO QDAY 04/28/24 Unknown History iron) tablet furosemide 20 mg tablet 20 mg PO QAM 04/28/24 Unknow n History pantoprazole 40 mg tablet,delayed 40 mg PO QDAY #90 ta bs 04/28/24 Unknown Rx release cyclobenzaprine 10 mg tablet 5 mg PO TID 06/10/24 Unkn own History acetaminophen 325 mg tablet 650 mg PO Q4H PRN Pain 1- Or 06/30/24 Unknown History Fever>100.7 albuterol sulfate 90 mcg/actuation 2 inh inhalation Q6 H PRN shortness 06/30/24 Unknown History aerosol inhaler of breath or wheezing escitalopram oxalate 10 mg tablet 15 mg PO DAILY 06/30 Unknown History (Lexapro) guaifenesin 400 mg tablet 400 mg PO Q4H PRN cough 06/08 08/01 Unknown History insulin glargine 100 unit/mL (3 8 unit subcut DAILY 07/01/24 History mL) subcutaneous pen (Lantus Solostar U-100 Insulin) polyethylene glycol 3350 17 17 g PO QODAY 06/30/24 Unk nown History gram/dose oral powder (Miralax) Allergy/AdvReac Type Severity Reaction Status Date / Time No Known Allergies Allergy Verified 07/01/24 11:58 Family History Mother Alzheimer dementia Breast cancer Heart disease Brother Cystic fibrosis Surgical History History of colonoscopy S/P laminectomy History of tubal ligation Hx of cholecystectomy H/O section Social History Smoking Status: Never smoker alcohol intake: never ROS Constitutional Constitutional: Denies fatigue, fever(s), poor appetite, weight gain or weight loss Gastrointestinal Gastrointestinal: Denies belching, bloating, change in bowel habits, change in stool character, chewing difficulty, coffee ground emesis, constipation, cramping, diarrhea, dyspepsia, dysphagia, earlysatiety, excessive flatus, fecalincontinence, heartburn, hematemesis, hematochezia, hemorrhoids, loose stools, melena, nausea, odynophagia, rectal bleeding, tenesmus, vomiting or weight changes Vital Signs Vital Signs Vital Signs: 07/01/24 11:58 07/01/24 11:58 07/01/24 12:29 Temperature 98.3 F 98.3 F Temperature Source Temporal Pulse Rate 90 90 Respiratory Rate 16 16 Respiratory Pattern Normal Blood Pressure 112/84 H 112/84 H Blood Pressure Mean 93 Blood Pressure Source Monitor Blood Pressure Position Semi-Fowlers Blood Pressure Location Left Arm Pulse Ox 98 98 Oxygen Delivery Method Room Air Room Air Weight Weight: 201 lb Body Mass Index (BMI) 32.4 Physical Exam Const alert, oriented x3, no apparent distress and healthy appearing General Appearance: cooperative GI normal to inspection, nondistended, normoactive bowel sounds, soft to palpation,non-tender and non-distended Percussion: normal to percussion Rectal Exam: deferred Results Lab / Micro Data Labs: Laboratory Results - last 24 hr 07/01/24 11:42: POC Glucose 62 L Assessment & Plan Assessment/Plan (1) Anemia: PLAN: Assessment and Plan Assessment and Plan (1) Anemia: Qualifiers: Anemia type: iron deficiency Iron deficiency anemia type: unspecified iron deficiency Qualified Code(s): D50.9 - Iron deficiency anemia, unspecified Orders: Orders CBC W/Diff, Automated 2 Weeks D64.9 - Anemia, unspecified Medications: New pantoprazole 40 mg PO QDAY 90 tabs 1RF peg 3350-electrolytes 236-22.74-6.74 -5.86 gram (Golytely) take as directed for split dose bowel prep, until fecal effluent is clear 240mL PO Q10M 4,000 mL 0RF Discontinued famotidine Discontinued Reason: Order Changed 20 mg PO BID Plan 78y/o female presents for consultation of anemia. PMH is significant for anemia,CHF, A-fib on Xarelto, COPD, IDDM, chronic kidney disease. She was seen in the ED on 03/28/2024 for HGB 6.9 without anys/s of bleeding. Labs completed in ED revealed HGB 7.7 with occult positive stools. Xarelto has been discontinued and she is now taking ASA 325mg daily. She has also been started on ferrous sulfate 325mg daily. Most recent labs completed 04/14/2024 revealed HGB stable at 7.7. I have discontinued famotidine and started her on PPI daily. She will proceed withcolonoscopy and EGD. I recommend a repeat CBC in 2 weeks. Patient Instructions: 1. Discontinue Famotidine 2. Start pantoprazole 40mg QD 3. CBC in 2 weeks 4. Colonoscopy and EGD - scheduled at [facility] with Dr. Munoz (Golyte bowel prep) 5. Follow-up in the office 1-2 weeks post procedure 07/01/24 1239 Cosigner Signature (if applicable): CC: April Mullen MD; BETTY Rangel Signed [facility] Consult note [facility] Medical Records Department [address] [place] [address] Pre-Anesthesia Evaluation 07/01/24 1219 MR#: [id number] Acct: [id number] Name: DARYN SHAH Rep #:[id number] 0 : 1945 78 From: Manuel Campuzano MD PCP: April Mullen MD Status:REG [facility] Y Race: C Location: [place] [address]- ASA Classification* ASA Classification ASA Classification: 3 Assessment & Plan Anesthesia* Anesthesia Assessment Anesthesia Assessment: Discussed sedation and/or anesthesia options, risks, benefits, and alternatives with patient/parents/legal guardian/POA. Questions invited. The patient/parents/legal guardian/POA seems to understand and agrees to proceedwith anesthesia plan. Reviewed the physical assessment, medical history, allergy history and patient home medications list prior to surgery/procedure/anesthetic and documented any changes. Performed airway and anesthesia risk assessments. Anesthesia Type Anesthesia Type: MAC (Moderate aortic stenosis. Avoid increases heart rates andlow blood pressure. Consider phenylephrine as a vasoactive agent) History Source History Obtained from:: Patient and Chart Anesthesia Focused Assessment* Temperature: 98.3 F Pulse Rate: 90 Blood Pressure: 112/84 Respiratory Rate: 16 Pulse Ox: 98 Oxygen Delivery Method: Room Air Airway Assessment Mouth opens: >3 cm Mallampati Score: I Teeth Condition: Dentures (Upper dentures are out.) and Missing (Edentulous on the bottom.) Neck Range of motion (ROM): Limited ROM (Somewhat decreased extension) Focused Labs Anesthesia Preop lab: CBC WBC 6.3 K/mm3 (4.4-11.0) 06/24/24 07:00 06/24/24 RBC 4.14 M/mm3 (4.2-5.4) L 06/24/24 07:00 06/24/24 Hgb 10.3 g/dL (12.0-15.0) L 06/24/24 07:00 5 Hct 32.9 % (37-47) L 06/24/24 07:00 06/24/24 Plt Count 137 K/mm3 (150-450) L 06/24/24 07:00 06/24/24 CHEMISTRY Potassium 3.8 mmol/L (3.3-5.1) 06/24/24 07:00 06/24/24 Sodium 140 mmol/L (133-145) 06/24/24 07:00 06/24/24 Magnesium 1.7 mg/dL (1.6-2.6) 01/02/24 03:30 01/02/24 Phosphorus 3.4 mg/dL (2.5-4.9) 01/01/24 04:42 01/01/24 BUN 21 mg/dL (4-19) H 06/24/24 07:00 06/24/24 Creatinine 1.16 mg/dL (0.70-1.20) 06/24/24 07:00 06/24/24 Glucose 102 mg/dL (70-99) H 06/24/24 07:00 06/24/24 POC Glucose 62 mg/dL (74-106) L 07/01/24 11:42 07/01/24 TSH 1.650 uIU/mL (0.358-3.740) 01/01/24 04:42 12/09 07/31 COAG PT 20.9 SECONDS (11.7-14.9) H 12/31/23 17:57 12/09 06/30 Pre-Assessment Diagnosis/Proposed Procedure Planned Operative Procedure(s): CSCOPE/EGD Anesthesia History Anesthesia History - international marketing manager: Anesthesia History - international marketing manager Hx Hospitalization Yes: 12/2023 PNEUMONIA AND 06/30/24 11:18 COVID Any Problems With Anesthesia No 06/30/24 11:18 Cholinesterase deficiency No 06/30/24 11:18 You/Your Family Experience No 06/30/24 11:18 fever (hyperthermia) with Relationship Recent Exposure to Contagious No 07/01/24 11:58 Disease Does patient have nerve No 06/30/24 11:18 stimulator Patient instructed to have device shut off --Does patient have Pacemaker No 07/01/24 11:58 or ICD? When Was Last Pacemaker Check QUESTION #4 FULL TEXT: You/Your Family Experience fever (hyperthermia) with Anesthesia Last Oral Intake Last Oral intake: Last Oral Intake NPO since Meds taken in AM with sips of water? Meds patient instructed to take am of surgery Any additional information?: Yes NPO since: 00:00 Meds taken in AM with sips of water?: No PONV PONV - international marketing manager: PONV - international marketing manager Female Yes 06/30/24 11:18 HX of Motion Sickness No 06/30/24 11:18 HX of N/V After Surgery No 06/30/24 11:18 Non-Smoker Yes 06/30/24 11:18 Duration of Surgery greater No 06/30/24 11:18 than 60 minutes Number of Risk Factors 2 06/30/24 11:18 PONV Score Moderate Risk 06/30/24 11:18 Height & Weight Height & Weight: Anesthesia: Height & Weight Height 5 ft 6 in 07/01/24 11:58 Weight: 91.172 kg 07/01/24 11:58 Body Mass Index (BMI) 32.4 07/01/24 11:58 Respiratory Assessment Respiratory Assessment - international marketing manager: Respiratory Tract Infection Hx - international marketing manager Hx Respiratory Tract Infection No 06/30/24 11:18 STOP Sleep Apnea STOP Sleep Apnea - international marketing manager: STOP Sleep Apnea - international marketing manager Hx Hypertension Yes 06/30/24 11:18 Hx Sleep Apnea No 06/30/24 11:18 CPAP BIPAP Do you snore loudly (louder No 06/30/24 11:18 than talking or can be heard Do you often feel tired/ No 06/30/24 11:18 fatigued/ sleepy during daytime? Has anyone observed you stop No 06/30/24 11:18 breathing during sleep? STOP Results Negative 06/30/24 11:18 QUESTION #5 FULL TEXT : Do you snore loudly (louder than talking or can be heard through closeddoors)? 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 Specify any problems Hx of Preganancy in last 3 No 06/30/24 11:18 Months Nurse Filling Out Transfusion DSCHRIBER 06/30/24 11:18 & Questions: Date: 06/30/24 06/30/24 11:18 Time: 11:21 06/30/24 11:18 Patient unable to answer at this time (ie. confused, unrespo /Reproduction History /Reproductive History - international marketing manager: /Reproductive Hx- international marketing manager Hx Now No 03/24/25 11:18 Gestational Age (in weeks): EDC: Hx Hx Para Hx Section SAB No 06/30/24 11:18 [facility] Medical History Lives in jail Wears glasses Wears partial dentures Marijuana use Discoloration of skin Open wound Insulin dependent diabetes mellitus Uses wheelchair Arthritis History of renal disease Low iron High cholesterol Back pain Dietary restriction History of GI bleed Non-smoker Chronic cough History of edema History of echocardiogram Cardiology follow-up encounter History of CHF (congestive heart failure) History of atrial fibrillation Palpitations Magnesium deficiency Diarrhea Asthma Vertebral osteomyelitis Discitis of thoracic region Intractable back pain Syndrome of inappropriate secretion of antidiuretic hormone Age-related incipient cataract of both eyes Iron deficiency anemia Generalized muscle weakness Morbid obesity with BMI of 40.0-44.9, adult Vitamin D deficiency Venous stasis ulcer with varicose veins Renal lesion Primary osteoarthritis of both knees History of colonic polyps Neurodermatitis Lymphedema of leg Lumbar facet arthropathy Benign essential hypertension Anemia Anxiety Depression CHF (congestive heart failure) A-fib COPD (chronic obstructive pulmonary disease) Kidney disease Diabetes Hyperlipidemia History of ESBL E. coli infection History of infection with vancomycin resistant Enterococcus (VRE) Altered mental status Home Medications ?Medication ?Instructions ?Recorded ?Last Taken ?Type cholecalciferol (vitamin D3) 25 25 mcg PO DAILY Unknown History mcg (1,000 unit) capsule insulin lispro 100 unit/mL See Protocol subcut .TIDCM& HS 12/31/23 Unknown History subcutaneous pen (Humalog KwikPen (U-100) Insulin) multivitamin (Daily Multi-Vitamin 1 tab PO DAILY 12/30 Unknown History tablet) nystatin 100,000 unit/gram topical 1 applic topical BI D PRN skin 12/31/23 Unknown History powder irritation polyethylene glycol 3350 17 17 g PO BID PRN constipati on 12/31/23 Unknown History gram/dose oral powder potassium chloride 10 mEq 20 meq PO DAILY 12/31/23 Unk nown History capsule,extended release sennosides 8.6 mg tablet 17.2 mg PO BID PRN constipat ion 12/31/23 Unknown History venlafaxine 75 mg capsule,extended 150 mg PO DAILY Unknown History release 24 hr ascorbic acid (vitamin C) 500 mg 500 mg PO BIDCM #0 ta bs 01/08/24 Unknown Rx tablet carvedilol 3.125 mg tablet 3.125 mg PO BID #0 tabs 05/02 Unknown Rx lisinopril 2.5 mg tablet 2.5 mg PO DAILY #0 tabs 05/02 Unknown Rx melatonin 3 mg tablet 6 mg (2 x 3 mg) PO QHS #0 ta bs 01/08/24 Unknown Rx buspirone 5 mg tablet 5 mg PO BID 03/28/24 Unknown History dapagliflozin propanediol 5 mg 5 mg PO DAILY 03/28/24 Unknown History tablet (Farxiga) aspirin 325 mg tablet 325 mg PO QDAY 04/28/24 Unkn own History ferrous sulfate 325 mg (65 mg 325 mg PO QDAY 04/28/24 Unknown History iron) tablet furosemide 20 mg tablet 20 mg PO QAM 04/28/24 Unknow n History pantoprazole 40 mg tablet,delayed 40 mg PO QDAY #90 ta bs 04/28/24 Unknown Rx release cyclobenzaprine 10 mg tablet 5 mg PO TID 06/10/24 Unkn own History acetaminophen 325 mg tablet 650 mg PO Q4H PRN Pain 1- Or 06/30/24 Unknown History Fever>100.7 albuterol sulfate 90 mcg/actuation 2 inh inhalation Q6 H PRN shortness 06/30/24 Unknown History aerosol inhaler of breath or wheezing escitalopram oxalate 10 mg tablet 15 mg PO DAILY 06/30 Unknown History (Lexapro) guaifenesin 400 mg tablet 400 mg PO Q4H PRN cough 06/08 08/01 Unknown History insulin glargine 100 unit/mL (3 8 unit subcut DAILY 07/01/24 History mL) subcutaneous pen (Lantus Solostar U-100 Insulin) polyethylene glycol 3350 17 17 g PO QODAY 06/30/24 Unk nown History gram/dose oral powder (Miralax) Allergy/AdvReac Type Severity Reaction Status Date / Time No Known Allergies Allergy Verified 07/01/24 11:58 Family History Mother Alzheimer dementia Breast cancer Heart disease Brother Cystic fibrosis Surgical History History of colonoscopy S/P laminectomy History of tubal ligation Hx of cholecystectomy H/O section Social History Smoking Status: Never smoker alcohol intake: never Review of Systems (Anesthesia) ROS Narrative System reviewed and no additional complaints, except as documented. 07/01/24 1233 leni REHMAN> Date _ Manuel Campuzano MD Cosigner Signature: Date CC: ~ Signed [facility]01-20-2025 Evaluation note* Diagnosis Onset Date Resolution Status Admit Date Anemia noneactive April 28, 2024 10:28am [facility] Work Phone: 1(522) 674-980001-20-2025 Evaluation note* Diagnosis Onset Date Resolution Status Admit Date Anemia noneactive April 28, 2024 10:28am Anemia acute July 01 11:19am [facility] Work Phone: 1(889) 390-398301-20-2025 Evaluation note* Diagnosis Onset Date Resolution Status Admit Date Anemia noneactive April 28, 2024 10:28am Anemia acute July 01 11:19am A-fib chronic July 23 10:52am Chronic HFrEF (heart failure with reduced ejection fraction) chronic July 23, 2024 10:52am Diabetes chronic July 23 10:52am Hypertension chronic July 23, 2024 10:52am Anemia acute July 31 8:52am Gastric ulcer acute July 31, 2024 8:52am [facility] Work Phone: 1(458) 906-993811-21-2024 History of Present illness Narrative* Braulio Oneil MD PhD - 02/28/2024 10:00 AM EST Images from the original note were not included. [facility] Department of Neurological Surgery Post Operative Patient Visit History of Present Illness: Daryn Shah is a 78 y.o. year old female who presents to the spine clinic for a post operative visit. They are status post T5-9 laminectomies for evacuation of epidural phlegmon on November 14, 2023. She denies any back or lower extremity pain at this time. She is in a wheelchair, but states that she has really not walked in over 5 years. She attributes this to a history of knee arthritis as well as severe deconditioning. systems reviewed and negative other than what is listed in the history of present illness Patient Active Problem List Diagnosis Anxiety Atrial fibrillation (Multi) Benign essential hypertension Depression, major, single episode, moderate (Multi) 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, without long-term current use of insulin Hyperlipidemia Lumbar facet arthropathy Lymphedema of leg Neurodermatitis Personal history of colonic polyps Primary osteoarthritis of both knees Renal lesion Venous stasis ulcer with varicose veins of lower extremity (Multi) Vitamin D deficiency Morbid obesity with BMI of 40.0-44.9, adult (Multi) Generalized muscle weakness Iron deficiency anemia Age-related incipient cataract of both eyes 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) Intractable back pain Discitis, unspecified, thoracic region Vertebral osteomyelitis (Multi) Past Medical History: Diagnosis Date Atrial fibrillation (Multi) Cellulitis of unspecified part of limb 10/30/2019 Cellulitis, leg COPD (chronic obstructive pulmonary disease) (Multi) Personal history of diseases of the skin and subcutaneous tissue 08/25/2019 History of dermatitis Personal history of other diseases of the respiratory system 07/08/2020 History of acute bronchitis Type 2 diabetes mellitus with diabetic chronic kidney disease 03/07/2022 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 Past Surgical History: Procedure Laterality Date COLONOSCOPY 09/22/2011 Colonoscopy OTHER SURGICAL HISTORY 01/03/2019 section OTHER SURGICAL HISTORY 02/11/2019 Cholecystectomy OTHER SURGICAL HISTORY 02/11/2019 Tubal ligation OTHER SURGICAL HISTORY 02/11/2019 Dilation and curettage Social History Tobacco Use Smoking status: Never Smokeless tobacco: Never Substance Use Topics Alcohol use: Never family history includes Alzheimer's disease in her mother; Breast cancer in her mother; Cancer in her mother; Cystic fibrosis in her brother; Diabetes in an other family member; cardiac disorder in her mother. Current Outpatient Medications: acetaminophen (Tylenol) 325 mg tablet, Take 2 tablets (650 mg) by mouth every 6 hours if needed formild pain (1 - 3)., Disp: , Rfl: Admelog SoloStar U-100 Insulin 100 unit/mL injection, , Disp: , Rfl: carvedilol (Coreg) 3.125 mg tablet, , Disp: , Rfl: cholecalciferol (Vitamin D-3) 25 MCG (1000 UT) tablet, Take 2 tablets (2,000 Units) by mouth once daily., Disp: 180 tablet, Rfl: 3 cyclobenzaprine (Flexeril) 10 mg tablet, , Disp: , Rfl: Farxiga 5 mg, , Disp: , Rfl: furosemide (Lasix) 20 mg tablet, , Disp: , Rfl: insulin lispro (HumaLOG) 100 unit/mL injection, Inject 0-10 Units under the skin 4 times a day before meals. Take as directed per insulin instructions., Disp: , Rfl: lisinopril 2.5 mg tablet, , Disp: , Rfl: polyethylene glycol (Glycolax, Miralax) 17 gram packet, Take 34 g by mouth 2 times a day., Disp: , Rfl: potassium chloride CR 20 mEq ER tablet, , Disp: , Rfl: rivaroxaban (Xarelto) 20 mg tablet, Take 1 tablet (20 mg) by mouth once daily. Take with food. Do not fill before November 25, 2023., Disp: , Rfl: sennosides (Senokot) 8.6 mg tablet, Take 2 tablets (17.2 mg) by mouth 2 times a day., Disp: , Rfl: venlafaxine XR (Effexor-XR) 75 mg 24 hr capsule, , Disp: , Rfl: ipratropium-albuteroL (Duo-Neb) 0.5-2.5 mg/3 mL nebulizer solution, Take 3 mL by nebulization every6 hours if needed for wheezing or shortness of breath. (Patient not taking: Reported on 02/28/2024), Disp: , Rfl: No Known Allergies Physical Examination: General: well developed, awake/alert/oriented x3, no distress, alert and cooperative Head/Neck: neck Supple, no apparent injury ENMT: mucous membranes moist, no apparent injury, no lesions seen Cardiovascular: no pitting edema, no JVD Respiratory/Thorax: Normal breath sounds with good chest expansion, thorax symmetric Skin: well-healed incision Neurological/Musculoskeletal: - Paraspinal muscle spasm/tenderness absent - Motor Strength: 5/5 throughout all extremities - Sensation: intact to light touch Results No new imaging Assessment/Plan Daryn Shah is a 78 y.o. year old female who presents to the spine clinic for a post operative visit. They are status post T5-9 laminectomies for evacuation of epidural phlegmon on November 14, 2023. She denies any back or lower extremity pain at this time. She is in a wheelchair, but states that she has really not walked in over 5 years. She attributes this to a history of knee arthritis as well as severe deconditioning. She is very happy with the results of her surgery. She does physical therapy at her jail. I am concerned that she is very depressed, and she acknowledges this. She relates this to a number of family issues. I did tell her that may be helpful for her to be evaluated by geriatric psychiatry. I have requested this referral. She will follow-up with me on an as-needed basis. The above clinical summary has been dictated with voice recognition software. It has not been proofread for grammatical errors, typographical mistakes, or other semantic inconsistencies. Thank you for visiting our office today. It was our pleasure to take part in your healthcare. Do not hesitate to call with any questions regarding your plan of care after leaving at M-F 8am-4pm. To clinicians, thank you very much for this kind referral. It is a privilege to partner with you inthe care of your patients. My office would be delighted to assist you with any further consultations or with questions regarding the plan of care outlined. Do not hesitate to call the office or contact me directly. Sincerely, Braulio Oneil MD PhD Attending Neurosurgeon [facility] Cement Tester Assistant of Neurological Surgery [facility] [employer] [address] [place] [address] Office: documented in this [facility] Work Phone: [phone]) 846-599210-08-2024 History of Present illness Narrative* Megan Osorio, DO - 01/15/2024 10:20 AM EDT Infectious Diseases Clinic Follow-up: Reason for Visit: vertebral OM History of Current Issue Daryn Shah is a 78 y.o. woman pmhx sig for Afib on rivaroxaban, HTN, T2DM last A1c 7.2, admitted 11/07-11/19 for acute onset worsening back pain and imaging consistent w/ thoracic discitis/OM as well as small abscesses +/- phlegmon. HPI per last notes as below: Initially on vanc and pip-tazo, s/p IR biopsy 11/12 which was ultimately no growth. Went to OR 11/13 for T5-9 laminectomy where they noted epidural phlegmon on the L lateral recess from T6-T9. Intra op Cx also negative and broad range PCR not detected. She was discharged on vanc/CTX 2gm q12H with plan for 6 weeks, through 12/25. She was discharged to a rehab facility. She had a post-op visit 12/03, incision appeared well and roberta removed. While at rehab she has had WBC wnl, LFTs ok. Has notably elevated CRP at 8 (when converted to mg/dL) compared to prior. Incision not red, not draining. She hadincorrect stop date for her CTX so this was stopped 11/30, and restarted about 2 weeks later. At herlast ID visit 12/25 we extended her abx due to her elevated CRPs and were trying to get a PET CT done. Since that time she had been admitted to [facility] for AMS and is now returned to her facility. They are sending discharge paperwork and recent vanc trough, CBC, CMP. Reports having COVID and PNA at OSH. Reports she was continuing to get her IV abx at [facility]. Was in quarantine for a while at the rehab. Now back in her old room and feels at home. Was told she had a weak heart, and is looking into getting a geography instructor for her Afib. Biggest regret is feels very weak overall and that she has had a set back with her rehab. Has sig LE weakness. Reports back pain is fantastic. Is not using any pain pills, only acetaminophen. No fever prior to COVID diagnosis. No fever since. Incision looks great. No drainage and is healed. PICC line still in; reports it accidentally came out while in the hospital and is now more painful afterwards, but not painful when getting infusions. Reports she had last dose of ceftriaxone today. No back pain while at [facility]. Also spoke popeye/ Yony, wound nurse, confirmed incision is healed and intact. Records faxed from her recent hospitalization at [facility], admitted from 12/30 to ~01/06 for AMS, hypoxemic in ED and trialed on BiPAP, no leukocytosis but CXR with pleural effusion and COVID swab positive. Initially on vanc and pip-tazo, changed back to vanc/CTX while inpatient and was treated for COVID as well as acute exacerbation of her heart failure. PAST MEDICAL HISTORY: 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 PAST SURGICAL HISTORY: Past Surgical History: Procedure Laterality Date COLONOSCOPY 09/22/2011 Colonoscopy OTHER SURGICAL HISTORY 01/03/2019 section OTHER SURGICAL HISTORY 02/11/2019 Cholecystectomy OTHER SURGICAL HISTORY 02/11/2019 Tubal ligation OTHER SURGICAL HISTORY 02/11/2019 Dilation and curettage ALLERGIES: No Known Allergies MEDICATIONS: Current Outpatient Medications: acetaminophen (Tylenol) 325 mg tablet, Take 2 tablets (650 mg) by mouth every 6 hours if needed formild pain (1 - 3)., Disp: , Rfl: cholecalciferol (Vitamin D-3) 25 MCG (1000 UT) tablet, Take 2 tablets (2,000 Units) by mouth once daily., Disp: 180 tablet, Rfl: 3 cyclobenzaprine (Flexeril) 5 mg tablet, Take 1 tablet (5 mg) by mouth 3 times a day., Disp: , Rfl: ipratropium-albuteroL (Duo-Neb) 0.5-2.5 mg/3 mL nebulizer solution, Take 3 mL by nebulization every6 hours if needed for wheezing or shortness of breath., Disp: , Rfl: polyethylene glycol (Glycolax, Miralax) 17 gram packet, Take 34 g by mouth 2 times a day., Disp: , Rfl: rivaroxaban (Xarelto) 20 mg tablet, Take 1 tablet (20 mg) by mouth once daily. Take with food. Do not fill before November 25, 2023., Disp: , Rfl: sennosides (Senokot) 8.6 mg tablet, Take 2 tablets (17.2 mg) by mouth 2 times a day., Disp: , Rfl: venlafaxine XR (Effexor-XR) 37.5 mg 24 hr capsule, Take 3 capsules (112.5 mg) by mouth once daily. Do not crush or chew. Do not fill before November 20, 2023., Disp: , Rfl: alteplase (Cathflo Activase) 2 mg injection, 2 mL (2 mg) by intra-catheter route if needed (line care). (Patient not taking: Reported on 01/15/2024), Disp: , Rfl: atenolol (Tenormin) 100 mg tablet, Take 0.5 tablets (50 mg) by mouth 2 times a day., Disp: , Rfl: dextrose 50 % injection, Infuse 25 mL (12.5 g) into a venous catheter every 15 minutes if needed (For blood glucose 41 to 70 mg/dL). (Patient not taking: Reported on 01/15/2024), Disp: , Rfl: dextrose 50 % injection, Infuse 50 mL (25 g) into a venous catheter every 15 minutes if needed (Forblood glucose less than or equal to 40 mg/dL). (Patient not taking: Reported on 01/15/2024), Disp: ,Rfl: dulaglutide 3 mg/0.5 mL pen injector, Inject 3 mg under the skin 1 (one) time per week. (Patient not taking: Reported on 01/15/2024), Disp: 2 mL, Rfl: 11 enoxaparin (Lovenox) 40 mg/0.4 mL syringe, Inject 0.4 mL (40 mg) under the skin once every 24 hours. (Patient not taking: Reported on 01/15/2024), Disp: , Rfl: glucagon (Glucagen) 1 mg injection, Inject 1 mg into the muscle every 15 minutes if needed for low blood sugar - see comments (For blood glucose less than or equal to 40 mg/dL and no IV access). (Patient not taking: Reported on 01/15/2024), Disp: , Rfl: HYDROmorphone (Dilaudid) 1 mg/mL injection, Infuse 0.2 mL (0.2 mg) into a venous catheter every 3 hours if needed for other (breakthrough pain). (Patient not taking: Reported on 01/15/2024), Disp: , Rfl: insulin lispro (HumaLOG) 100 unit/mL injection, Inject 0-10 Units under the skin 4 times a day before meals. Take as directed per insulin instructions. (Patient not taking: Reported on 01/15/2024), Disp: , Rfl: nystatin (Mycostatin) 100,000 unit/gram powder, Apply 1 Application topically 2 times a day. (Patient not taking: Reported on 01/15/2024), Disp: , Rfl: oxyCODONE (Roxicodone) 10 mg immediate release tablet, Take 1 tablet (10 mg) by mouth every 4 hoursif needed for severe pain (7 - 10). (Patient not taking: Reported on 01/15/2024), Disp: , Rfl: oxyCODONE (Roxicodone) 5 mg immediate release tablet, Take 1 tablet (5 mg) by mouth every 4 hours if needed for moderate pain (4 - 6). (Patient not taking: Reported on 01/15/2024), Disp: , Rfl: rosuvastatin (Crestor) 10 mg tablet, Take 1 tablet (10 mg) by mouth once daily at bedtime., Disp: ,Rfl: REVIEW OF SYSTEMS: Review of Systems per HPI PHYSICAL EXAMINATION: Visit Vitals OB Status Postmenopausal Smoking Status Never EXAM: Over the phone pt sounds well, NAD, not dyspneic, follows the coversation appropriately DATA: Laboratory Values and Test Results: facility faxed updated labs 01/13 - vanc trough 30, Cr 0.98, ESR12, WBC 8, Hgb 7.7, plt 162. CRP: 11/07 () 4.29 mg/dL 11/25 (facility) 62.00 mg/L 12/10 (facility) 75.80 mg/L 12/17 (facility) 37.20 mg/L 12/24 (facility) 80.80 mg/L 12/27 (facility) 39.80 mg/L Microbiology: 11/12 IR biopsy NG 11/13 intra op cx dorsal epidural - NG 11/13 intra op cx L lateral epidural - NG Other Relevant Studies: Pathology from 11/12 biopsy - FINAL DIAGNOSIS THORACIC SPINE, NEEDLE CORE BIOPSY: - OSTEOCARTILAGINOUS TISSUE, NO MALIGNANCY IDENTIFIED. Imaging Studies: ASSESSMENT / RECOMMENDATIONS: Daryn Shah is a 77 y.o. year old woman pmhx sig for Afib, T2DM last A1c 7.2, admitted 11/07-11/19for acute onset worsening back pain and imaging consistent w/ thoracic discitis/OM as well as smallabscesses +/- phlegmon. Initially on vanc and pip-tazo, s/p IR biopsy 11/12 which was ultimately no growth. Went to OR 11/13 for T5-9 laminectomy where they noted epidural phlegmon on the L lateral recess from T6-T9. Intra op Cx also negative and broad range PCR not detected. She was discharged on vanc/CTX 2gm q12H with plan for 6 weeks, through 12/25. She was discharged to a rehab facility, and had gap in her abx therapy with being off of ceftriaxone for about 2 weeks in the middle of her course. She has since been restarted since 12/12 and seems to have continued on the IV vanc. Due to rising CRP,we had requested PET CT at her last appt in order to evaluate for infection, as well as malignancy since she was noted to have multiple R-sided lung nodules on her initial CT scans. Speaking with hernurses this had been difficult to arrange, and during that time had been admitted to the hospital. At this time she has been extended on her abx about 3 additional weeks (total ~9 weeks) and is adamant that her back is doing very well and not causing her any problems. She has no hardware in her spine. At this time would complete her IV abx and monitor off abx for any new change in back pain. I would still obtain her PET-CT to work up her known R lung nodules, and discussed this with her on thephone today as well. #Thoracic OM w/ epidural abscess, s/p T5-9 laminectomy #R lung nodules Recommendations: -Complete IV abx -Ok to remove PICC from ID perspective -Encouraged pt to still obtain PET CT for evaluation of her lung nodules; she will discuss this with her son Follow up in ID clinic as needed Megan Osorio DO documented in this [facility] Work Phone: 1(323) 432-814110-01-[address] [facility]09-18-2024 History of Present illness Narrative* Megan Osorio DO - 12/26/2023 10:00 AM EDT Infectious Diseases Clinic Follow-up: Reason for Visit: vertebral OM History of Current Issue Daryn Shah is a 77 y.o. year old woman pmhx sig for Afib on rivaroxaban, HTN, T2DM last A1c 7.2, admitted 11/07-11/19 for acute onset worsening back pain and imaging consistent w/ thoracic discitis/OM as well as small abscesses +/- phlegmon. Initially on vanc and pip-tazo, s/p IR biopsy 11/12 whichwas ultimately no growth. Went to OR 11/13 for T5-9 laminectomy where they noted epidural phlegmon onthe L lateral recess from T6-T9. Intra op Cx also negative and broad range PCR not detected. She was discharged on vanc/CTX 2gm q12H with plan for 6 weeks, through 12/25. She was discharged to a rehabfacility. She had a post-op visit 12/03, incision appeared well and roberta removed. While at rehab she has had WBC wnl, LFTs ok. Has notably elevated CRP at 8 (when converted to mg/dL) compared to prior. Incision not red, not draining. On our phone visit today there is unfortunately poor connection. What we were able to discuss however is that she reports she feels well, and that she is a new person since her surgery. Back pain is much improved. She has no fever/chills, appetite is good. She feels like she still has some LE weakness but is progressing w/ PT. Her plans are to stay at the facility [facility]dc as she enjoys it there and feels like she is doing well there. She thinks her incision is doing okay; she admits to picking at other parts of her skin but can't reach her incision so hasn't been picking there; I counseled her to avoid this. Of note I was contacted by her facility 12/12 that her ceftriaxone had been discontinued by pharmacy as she had an erroneous stop date for this of 11/30. She was restarted on this at that time but was off for about 2 weeks. Additionally on 12/16 her facility called that her L arm where her PICC was was unable to be flushed and her L arm and breast were cool to the touch. They were directed to take herto the ED. There's no note I can see from this visit but they followed up the next day that her PICC was flushing well and she was prescribed Lasix. Speaking with her nurses this PICC is functioning fine at this time and pt reported no complaints during her visit. PAST MEDICAL HISTORY: 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 PAST SURGICAL HISTORY: Past Surgical History: Procedure Laterality Date COLONOSCOPY 09/22/2011 Colonoscopy OTHER SURGICAL HISTORY 01/03/2019 section OTHER SURGICAL HISTORY 02/11/2019 Cholecystectomy OTHER SURGICAL HISTORY 02/11/2019 Tubal ligation OTHER SURGICAL HISTORY 02/11/2019 Dilation and curettage ALLERGIES: No Known Allergies MEDICATIONS: Current Outpatient Medications: acetaminophen (Tylenol) 325 mg tablet, Take 2 tablets (650 mg) by mouth every 6 hours if needed formild pain (1 - 3)., Disp: , Rfl: alteplase (Cathflo Activase) 2 mg injection, 2 mL (2 mg) by intra-catheter route if needed (line care)., Disp: , Rfl: atenolol (Tenormin) 100 mg tablet, Take 0.5 tablets (50 mg) by mouth 2 times a day., Disp: , Rfl: cefTRIAXone (Rocephin) 2 gram/50 mL IV, Infuse 50 mL (2 g) at 100 mL/hr over 30 minutes into a venous catheter every 12 hours., Disp: , Rfl: cholecalciferol (Vitamin D-3) 25 MCG (1000 UT) tablet, Take 2 tablets (2,000 Units) by mouth once daily., Disp: 180 tablet, Rfl: 3 cyclobenzaprine (Flexeril) 5 mg tablet, Take 1 tablet (5 mg) by mouth 3 times a day., Disp: , Rfl: dextrose 50 % injection, Infuse 25 mL (12.5 g) into a venous catheter every 15 minutes if needed (For blood glucose 41 to 70 mg/dL)., Disp: , Rfl: dextrose 50 % injection, Infuse 50 mL (25 g) into a venous catheter every 15 minutes if needed (Forblood glucose less than or equal to 40 mg/dL)., Disp: , Rfl: dulaglutide 3 mg/0.5 mL pen injector, Inject 3 mg under the skin 1 (one) time per week., Disp: 2 mL, Rfl: 11 enoxaparin (Lovenox) 40 mg/0.4 mL syringe, Inject 0.4 mL (40 mg) under the skin once every 24 hours., Disp: , Rfl: glucagon (Glucagen) 1 mg injection, Inject 1 mg into the muscle every 15 minutes if needed for low blood sugar - see comments (For blood glucose less than or equal to 40 mg/dL and no IV access)., Disp: , Rfl: HYDROmorphone (Dilaudid) 1 mg/mL injection, Infuse 0.2 mL (0.2 mg) into a venous catheter every 3 hours if needed for other (breakthrough pain)., Disp: , Rfl: insulin lispro (HumaLOG) 100 unit/mL injection, Inject 0-10 Units under the skin 4 times a day before meals. Take as directed per insulin instructions., Disp: , Rfl: ipratropium-albuteroL (Duo-Neb) 0.5-2.5 mg/3 mL nebulizer solution, Take 3 mL by nebulization every6 hours if needed for wheezing or shortness of breath., Disp: , Rfl: nystatin (Mycostatin) 100,000 unit/gram powder, Apply 1 Application topically 2 times a day., Disp:, Rfl: oxyCODONE (Roxicodone) 10 mg immediate release tablet, Take 1 tablet (10 mg) by mouth every 4 hoursif needed for severe pain (7 - 10)., Disp: , Rfl: oxyCODONE (Roxicodone) 5 mg immediate release tablet, Take 1 tablet (5 mg) by mouth every 4 hours if needed for moderate pain (4 - 6)., Disp: , Rfl: polyethylene glycol (Glycolax, Miralax) 17 gram packet, Take 34 g by mouth 2 times a day., Disp: , Rfl: rivaroxaban (Xarelto) 20 mg tablet, Take 1 tablet (20 mg) by mouth once daily. Take with food. Do not fill before November 25, 2023., Disp: , Rfl: rosuvastatin (Crestor) 10 mg tablet, Take 1 tablet (10 mg) by mouth once daily at bedtime., Disp: ,Rfl: sennosides (Senokot) 8.6 mg tablet, Take 2 tablets (17.2 mg) by mouth 2 times a day., Disp: , Rfl: vancomycin (Vancocin) IVPB, Infuse 200 mL (1 g) at 200 mL/hr over 60 minutes into a venous catheterevery 12 hours., Disp: , Rfl: venlafaxine XR (Effexor-XR) 37.5 mg 24 hr capsule, Take 3 capsules (112.5 mg) by mouth once daily. Do not crush or chew. Do not fill before November 20, 2023., Disp: , Rfl: REVIEW OF SYSTEMS: Review of Systems - as above PHYSICAL EXAMINATION: Visit Vitals OB Status Postmenopausal Smoking Status Never EXAM: Phone connection is poor but she sounds well, no dyspnea, able to follow the conversation well DATA: Laboratory Values and Test Results: Reviewed CBC, CMP, CRP, vanc troughs CRP: 11/07 () 4.29 mg/dL 11/25 (facility) 62.00 mg/L 12/10 (facility) 75.80 mg/L 12/17 (facility) 37.20 mg/L 12/24 (facility) 80.80 mg/L Microbiology: 11/12 IR biopsy NG 11/13 intra op cx dorsal epidural - NG 11/13 intra op cx L lateral epidural - NG Other Relevant Studies: Pathology from 11/12 biopsy - FINAL DIAGNOSIS THORACIC SPINE, NEEDLE CORE BIOPSY: - OSTEOCARTILAGINOUS TISSUE, NO MALIGNANCY IDENTIFIED. Imaging Studies: 11/05 CT chest/abd/pelvis FINDINGS: Please note that the evaluation of vessels, lymph nodes and organs is limited without intravenous contrast. There is minimal atelectasis in the left lower lobe of the lung. No consolidative infiltrate is noted. There are no pleural effusions. No filling defects are seen within the trachea or mainstem bronchi. Multiple nodules are visualized. The largest nodule is seen in the lingula abutting the vessels, measured at 1.1 x 1.0 cm(Series 3, Image 107). There is an adjacent nodule in the right middle lobe, measured at 7 x 7 mm(Series 3, Image 112). There is a 5 x 5 mm nodule in the lateral aspect of the right upper lobe(Series 3, Image 41). There is no evidence of a pneumothorax. Evaluation for hilar adenopathy is limited due to lack of IV contrast. Subcentimeter lymph nodes are seen in the mediastinum. There is no pericardial effusion. Coronary artery calcifications are present. There is no evidence of aneurysmal dilatation of the ascending aorta, aortic arch, or descending thoracic aorta. Degenerative changes are seen throughout the thoracic spine. There are prominent endplate changes seen at T6-7 and T7-8, suspicious for discitis/osteomyelitis. There is prominent prevertebral soft tissue swelling noted at these levels, suggestive of overlying phlegmonous changes. Evaluation for an abscess is limited due to lack of IV contrast. Evaluation of the abdominal viscera is suboptimal due to lack of IV contrast. No acute findings are seen within the unenhanced liver, spleen, pancreas, or adrenal glands. There is a nonobstructing 2 mm stone in the midpole of the left kidney. No hydronephrosis is noted. No bladder calculi are noted. No dilated loops of small bowel or colon are visualized. There is no evidence for free intraperitoneal air. The appendix is normal in appearance. No enlarged lymph nodes are seen within the pelvic sidewalls, iliac chains, or retroperitoneum. There is no evidence of aneurysmal dilatation of the abdominal aorta. No prominent edema is seen within the psoas musculature. Degenerative changes are seen throughout the lumbar spine. There are calcified uterine fibroids. IMPRESSION: CHEST: 1. Endplate changes involving T6-7 and T7-8, indicative of discitis/osteomyelitis. Prominent prevertebral soft tissue swelling noted, indicative of phlegmonous changes. Evaluation for an abscess is limited due to lack of IV contrast. 2. Multiple right lung nodules. The largest is measured at 1.1 x 1.0 cm in the right middle lobe. Malignancy cannot be excluded. Follow-up with PET CT scan is recommended. 3. Coronary artery calcifications. ABDOMEN/PELVIS: 1. Evaluation for an abscess is limited due to lack of IV contrast. 2. Left-sided nephrolithiasis, with no evidence of hydronephrosis. 3. Calcified uterine fibroids. 11/05 MR lumbar spine IMPRESSION: Multilevel degenerative disc disease and facet arthrosis most pronounced at L3-L4 with severe spinal canal and moderate bilateral neural foraminal stenosis. Mildly heterogeneous bone marrow signal is nonspecific. There is a hemangioma within the L4 vertebral body. Otherwise no focal lesion within the lumbar spine. MR thoracic spine: IMPRESSION: There is abnormal signal within the disc spaces at T6-T7 and T7-T8 as well as abnormal signal throughout the T6 and T7 vertebral bodies and the majority of the T8 vertebral body suggesting discitis osteomyelitis at these levels. There is prevertebral and paraspinal infiltration with multiple subcentimeter T1 hypointense and rim enhancing collections within the paraspinal soft tissues suggesting small abscesses. There is greater than expected enhancement within the epidural space extending from T6 through T9 suggesting phlegmon. This results in severe spinal canal stenosis at these levels. Question subtle increased cord signal on the STIR sequence. MR cervical spine IMPRESSION: The examination is moderately degraded by patient motion artifact. Within this limitation, no evidence of focal osseous metastatic disease. No definite abnormal signal or enhancement within the cervical cord. Multilevel degenerative changes as detailed above. ASSESSMENT / RECOMMENDATIONS: Daryn Shah is a 77 y.o. year old woman pmhx sig for Afib, T2DM last A1c 7.2, admitted 11/07-11/19for acute onset worsening back pain and imaging consistent w/ thoracic discitis/OM as well as smallabscesses +/- phlegmon. Initially on vanc and pip-tazo, s/p IR biopsy 11/12 which was ultimately no growth. Went to OR 11/13 for T5-9 laminectomy where they noted epidural phlegmon on the L lateral recess from T6-T9. Intra op Cx also negative and broad range PCR not detected. She was discharged on vanc/CTX 2gm q12H with plan for 6 weeks, through 12/25. She was discharged to a rehab facility and appears she has been doing well there, and she has no complaints when speaking w/ her today. She did have a gap in her abx therapy with being off of ceftriaxone for about 2 weeks in the middle of her course. She has since been restarted since 12/12 and seems to have continued on the IV vanc. Her labs overall are stable with the exception of generally rising CRP. It's not clear the significance of this, although reviewing her chart she was noted to have multiple R-sided lung nodules on her initial CT scans for which a follow up PET CT was recommended. Her pathology from the IR thoracic spine biopsy wasnegative for malignancy. Since she had a small gap in her abx coverage, I would extend her therapy for another 2 weeks or so and try to obtain the PET CT which was ordered inpatient but has not been able to be completed. This will hopefully elucidate if there is anything infectious yet that needs tr eated, and evaluate if there is anything concern about her lung nodules. #Thoracic OM w/ epidural abscess, s/p T5-9 laminectomy #R lung nodules Recommendations: -Will extend her IV abx therapy with IV ceftriaxone 2gm q12H and IV vancomycin, last dose from facility pharmacy was 2gm q36H. I discussed this dosing w/ the pharmacist managing her case at [facility]. Will plan to get weekly labs starting Saturday 12/30 with vanc trough/CBC/CMP/CRP, faxed orders and relayed to nursing at the facility -PET CT ordered -Will arrange outpt follow up after PET CT results Megan Osorio DO documented in this [facility] Work Phone: [phone]) 353-163108-27-2024 History of Present illness Narrative* Eliza Alonso PA-C - 12/04/2023 10:00 AM EDT Images from the original note were not included. [facility] Department of Neurological Surgery Post Operative Patient Visit History of Present Illness: Daryn Shah is a 77 y.o. year old female who presents post T6-9 laminectomy and decompression by Dr. Braulio Oneil on November 14, 2023. Initially with significant spinal cord compression though recovering well and in good spirits. Inspection of her incision shows well-approximated, nonerythemic, nonedematous surgical incision with good fibrotic tissue spanning. Roberta removed at visit today with patient tolerating well and no complications encountered. Pain control is tolerable she has oxycodone available though will often declined in favor of Tylenol alone. I recommended ice packs or lidocaine patches also for local relief. Would recommend continued physical therapy as she recovers from spinal cord compression. Will follow-up with Dr. Oneil approximately 3 months postop. systems reviewed and negative other than what is listed in the history of present illness Patient Active Problem List Diagnosis Anxiety Atrial fibrillation (Multi) Benign essential hypertension Depression, major, single episode, moderate (Multi) 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, without long-term current use of insulin (Multi) Hyperlipidemia Lumbar facet arthropathy Lymphedema of leg Neurodermatitis Personal history of colonic polyps Primary osteoarthritis of both knees Renal lesion Venous stasis ulcer with varicose veins of lower extremity (Multi) Vitamin D deficiency Morbid obesity with BMI of 40.0-44.9, adult (Multi) Generalized muscle weakness Iron deficiency anemia Age-related incipient cataract of both eyes 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) Intractable back pain Discitis, unspecified, thoracic region 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 Past Surgical History: Procedure Laterality Date COLONOSCOPY 09/22/2011 Colonoscopy OTHER SURGICAL HISTORY 01/03/2019 section OTHER SURGICAL HISTORY 02/11/2019 Cholecystectomy OTHER SURGICAL HISTORY 02/11/2019 Tubal ligation OTHER SURGICAL HISTORY 02/11/2019 Dilation and curettage Social History Tobacco Use Smoking status: Never Smokeless tobacco: Never Substance Use Topics Alcohol use: Never family history includes Alzheimer's disease in her mother; Breast cancer in her mother; Cancer in her mother; Cystic fibrosis in her brother; Diabetes in an other family member; cardiac disorder in her mother. Current Outpatient Medications: acetaminophen (Tylenol) 325 mg tablet, Take 2 tablets (650 mg) by mouth every 6 hours if needed formild pain (1 - 3)., Disp: , Rfl: alteplase (Cathflo Activase) 2 mg injection, 2 mL (2 mg) by intra-catheter route if needed (line care)., Disp: , Rfl: atenolol (Tenormin) 100 mg tablet, Take 0.5 tablets (50 mg) by mouth 2 times a day., Disp: , Rfl: cefTRIAXone (Rocephin) 2 gram/50 mL IV, Infuse 50 mL (2 g) at 100 mL/hr over 30 minutes into a venous catheter every 12 hours., Disp: , Rfl: cholecalciferol (Vitamin D-3) 25 MCG (1000 UT) tablet, Take 2 tablets (2,000 Units) by mouth once daily., Disp: 180 tablet, Rfl: 3 cyclobenzaprine (Flexeril) 5 mg tablet, Take 1 tablet (5 mg) by mouth 3 times a day., Disp: , Rfl: dextrose 50 % injection, Infuse 25 mL (12.5 g) into a venous catheter every 15 minutes if needed (For blood glucose 41 to 70 mg/dL)., Disp: , Rfl: dextrose 50 % injection, Infuse 50 mL (25 g) into a venous catheter every 15 minutes if needed (Forblood glucose less than or equal to 40 mg/dL)., Disp: , Rfl: dulaglutide 3 mg/0.5 mL pen injector, Inject 3 mg under the skin 1 (one) time per week., Disp: 2 mL, Rfl: 11 enoxaparin (Lovenox) 40 mg/0.4 mL syringe, Inject 0.4 mL (40 mg) under the skin once every 24 hours., Disp: , Rfl: glucagon (Glucagen) 1 mg injection, Inject 1 mg into the muscle every 15 minutes if needed for low blood sugar - see comments (For blood glucose less than or equal to 40 mg/dL and no IV access)., Disp: , Rfl: HYDROmorphone (Dilaudid) 1 mg/mL injection, Infuse 0.2 mL (0.2 mg) into a venous catheter every 3 hours if needed for other (breakthrough pain)., Disp: , Rfl: insulin lispro (HumaLOG) 100 unit/mL injection, Inject 0-10 Units under the skin 4 times a day before meals. Take as directed per insulin instructions., Disp: , Rfl: ipratropium-albuteroL (Duo-Neb) 0.5-2.5 mg/3 mL nebulizer solution, Take 3 mL by nebulization every6 hours if needed for wheezing or shortness of breath., Disp: , Rfl: nystatin (Mycostatin) 100,000 unit/gram powder, Apply 1 Application topically 2 times a day., Disp:, Rfl: oxyCODONE (Roxicodone) 10 mg immediate release tablet, Take 1 tablet (10 mg) by mouth every 4 hoursif needed for severe pain (7 - 10)., Disp: , Rfl: oxyCODONE (Roxicodone) 5 mg immediate release tablet, Take 1 tablet (5 mg) by mouth every 4 hours if needed for moderate pain (4 - 6)., Disp: , Rfl: polyethylene glycol (Glycolax, Miralax) 17 gram packet, Take 34 g by mouth 2 times a day., Disp: , Rfl: rivaroxaban (Xarelto) 20 mg tablet, Take 1 tablet (20 mg) by mouth once daily. Take with food. Do not fill before November 25, 2023., Disp: , Rfl: rosuvastatin (Crestor) 10 mg tablet, Take 1 tablet (10 mg) by mouth once daily at bedtime., Disp: ,Rfl: sennosides (Senokot) 8.6 mg tablet, Take 2 tablets (17.2 mg) by mouth 2 times a day., Disp: , Rfl: vancomycin (Vancocin) IVPB, Infuse 200 mL (1 g) at 200 mL/hr over 60 minutes into a venous catheterevery 12 hours., Disp: , Rfl: venlafaxine XR (Effexor-XR) 37.5 mg 24 hr capsule, Take 3 capsules (112.5 mg) by mouth once daily. Do not crush or chew. Do not fill before November 20, 2023., Disp: , Rfl: No Known Allergies The above clinical summary has been dictated with voice recognition software. It has not been proofread for grammatical errors, typographical mistakes, or other semantic inconsistencies. Thank you for visiting our office today. It was our pleasure to take part in your healthcare. Do not hesitate to call with any questions regarding your plan of care after leaving at M-F 8am-4pm. To clinicians, thank you very much for this kind referral. It is a privilege to partner with you inthe care of your patients. My office would be delighted to assist you with any further consultations or with questions regarding the plan of care outlined. Do not hesitate to call the office or contact me directly. Sincerely, JANAK Tian PA-C Associate Physician Dean Of Students, Neurosurgery Clinical Cement Tester Assistant [facility] [employer] [facility] [employer] [place] [address] [address] [place] [address] [facility] Work Phone: [phone]) 352-995408-13-2024 Nurse Note* Ramos Phillip RN - 11/20/2023 1:59 PM EDT Discharge Note: Pt A&O x 4 at time of discharge, anxious. Report called to [facility] at 1331. Pt to bedischarged with PICC for continued IV antibiotic treatments. Pt to discharge to SNF via stretcher. Pt in possession of all belongings at time of discharge. * Sonya Rich RN - 11/14/2023 10:24 PM EDT 11/14/232224- Patient returned to unit from PACU. Vital signs stable,patient oriented. Complaints of 9/10 back pain. Boss ,prevena suction and hemovac in place and intact. SCD's on-Sonya Rich RN * Rosenda Arellano LPN - 11/13/2023 10:50 AM EDT END OF SHIFT NOTE Patient remained safe and free from falls during the shift. Patient did complain of back pain. Had a CT-guided biopsy of the T7 vertebral done today. Pt. has been cooperative and pleasant. Plan for patient to be NPO at midnight. Going to OR to have procedure to her spine done tomorrow 11/13. Call light within reach. No other events occurred throughout shift. Nurse will continue to monitor. Wolf Arellano LPN * Rosenda Arellano LPN - 11/09/2023 6:41 PM EDT END OF SHIFT NOTE Patient remained safe and free from falls during the shift. Plan is for patient to have a thoracic spine biopsy done Sunday. Patient must be off anticoagulation for at least 3 days for the procedure to be safely done in IR. Pt. has been cooperative and pleasant. No other significant events occurred throughout shift. Oncoming Nurse will continue to monitor patient. Call light within reach. Wolf Arellano LPN [facility] Work Phone: [phone]) 744-261908-13-2024 History of Present illness Narrative* Ansley Anthony - 11/20/2023 1:37 PM EDT Spiritual Care Visit Clinical Encounter Type Visited With: Patient Routine Visit: Follow-up Continue Visiting: Yes Surgical Visit: Post-op Referral From: Nurse, Family, Patient Referral To: Bilingual Medical Receptionist Cheondoism Encounters Cheondoism Needs: Prayer Values/Beliefs Cultural Requests During Hospitalization: none noted Spiritual Requests During Hospitalization: support, prayer, life review, bereavement Patient Spiritual Care Encounters Suffering Severity: Moderate Fear Level: Mild Feelings of Loneliness: Moderate Feelings of Hopelessness: Moderate Coping: Often demonstrated Family Spiritual Care Encounters Family Participation in Care: Consistently demonstrated Family Support During Treatment: Consistently demonstrated Caregiver-Patient Relationship: Mildly compromised PC-7 Assessment (Level of Unmet Needs) Existential Struggle: Some Spiritual/Cheondoism Struggle: Some Legacy: Some Relationships: Some Fear of /Dying: None Values/Medical Decision Making: Some Ritual/Other: None PC-7 Score: 5 SDAT (Spiritual Distress Assessment Tool) Need for Life Balance: Some evidence of unmet spiritual need Need for Connection: Substancial evidence of unmet spiritual need Need for Values Acknowledgement: Some evidence of unmet spiritual need Need to Maintain Control: Some evidence of unmet spiritual need Need to Maintain Identity: Some evidence of unmet spiritual need SDAT Score: 6 SDAT Average Score: 1.2 Taxonomy Intended Effects: Demonstrate caring and concern, Lessen anxiety, Lessen someone's feelings of isolation, Journeying with someone in the grief process, Convey a calming presence Methods: Offer emotional support, Offer spiritual/tenriism support, Offer support Interventions: Active listening, Assist with identifying strengths, Discuss concerns, Facilitate life review, Prayer for healing Follow up spiritual care visit with patient this morning. Patient engaged river guide in life review and story telling. Pt has some grief and loss that she is working through. Patient shared her feelings and concerns and hopes. Bilingual Medical Receptionist listened and provided support, companionship, prayer and listening. Patient may be discharged today. Bilingual Medical Receptionist will continue to see her if that is not the case. * Linda Grace, BryannaD - 11/20/2023 11:29 AM EDT Vancomycin Dosing by Pharmacy- FOLLOW UP Daryn Shah is a 77 y.o. year old female who Pharmacy has been consulted for vancomycin dosing for osteomyelitis/septic arthritis. Based on the patient's indication and renal status this patient is being dosed based on a goal AUC of 400-600. Renal function is currently stable. Current vancomycin dose: 1500 mg given every 24 hours Estimated vancomycin AUC on current dose: 383 mg/L.hr Visit Vitals BP 145/89 Pulse 99 Temp 36.7 C (98.1 F) (Temporal) Resp 18 Lab Results Component Value Date CREATININE 0.61 11/19/2023 CREATININE 0.66 11/18/2023 CREATININE 0.63 11/17/2023 CREATININE 0.77 11/16/2023 Patient weight is as follows: Vitals: 11/09/23 0230 Weight: 94.6 kg (208 lb 8.9 oz) Cultures: 11/12 and 11/13 tissue cx NGTD Staph aureus colonization from PICC line ordered but not collected yet I/O last 3 completed shifts: In: 820 (8.7 mL/kg) [P.O.:600; I.V.:20 (0.2 mL/kg); IV Piggyback:200] Out: 760 (8 mL/kg) [Urine:750 (0.2 mL/kg/hr); Drains:10] Weight: 94.6 kg I/O during current shift: I/O this shift: In: 50 [IV Piggyback:50] Out: - Temp (24hrs), Av.7 C (98 F), Min:36.2 C (97.2 F), Max:37.2 C (99 F) Assessment/Plan Below goal AUC. Orders placed for new vancomcyin regimen of 1000 mg every 12 hours to begin at 1700. This dosing regimen is predicted by [employer] to result in the following pharmacokinetic parameters: AUC24,ss: 500 mg/L.hr Probability of AUC24 > 400: 98 % Ctrough,ss: 16.8 mg/L Probability of Ctrough,ss > 20: 5 % Probability of nephrotoxicity (Lodise GIANNA 2008): 12 % The next level will be obtained on 11/21 at AM labs. May be obtained sooner if clinically indicated. Will continue to monitor renal function daily while on vancomycin and order serum creatinine at least every 48 hours if not already ordered. Follow for continued vancomycin needs, clinical response, and signs/symptoms of toxicity. Linda Grace PharmD * Sophie Ramirez APRN-SUPPLY CHAIN ASSOCIATE - 11/20/2023 9:42 AM EDT Subjective Patient endorses feelings of depression. She states she is depressed but this is nothing new. Shestates it wouldn't be the worst thing if I , but she denies suicidal ideation and is thinkingabout plans to reconnect with her temple and is interested in looking a senior centers for socialization. She agrees with the plan to increase Effexor dose. She is hopeful her strength will improve wh ile at rehab. She expresses concern for her son who is currently hospitalized. Bilingual Medical Receptionist is seeing patient today as well. Patient notes no pain when at rest and moderate pain with movement. She states her pain is well controlled. She is eating well. She reports some constipation, but was able to have a bowel movement yesterday. Objective Current Facility-Administered Medications Medication Dose Route Frequency Provider Last Rate Last Admin acetaminophen (Tylenol) tablet 650 mg 650 mg oral q6h PRN Thomas Hoffman MD 650 mg at 11/20/23 0855 alteplase (Cathflo Activase) injection 2 mg 2 mg intra-catheter PRN Danny Deng MD atenolol (Tenormin) tablet 50 mg 50 mg oral BID Giovanna Coles MD 50 mg at 11/20/23 0931 cefTRIAXone (Rocephin) 2 g in dextrose (iso) IV 50 mL 2 g intravenous q12h Danny Deng MD 100 mL/hr at 11/20/23 0933 2 g at 11/20/23 0933 cholecalciferol (Vitamin D-3) tablet 2,000 Units 2,000 Units oral Daily Giovanna Coles MD 2,000 Units at 11/20/23 0930 cyclobenzaprine (Flexeril) tablet 5 mg 5 mg oral TID Giovanna Coles MD 5 mg at 11/20/23 0932 dextrose 50 % injection 12.5 g 12.5 g intravenous q15 min PRN Giovanna Coles MD dextrose 50 % injection 25 g 25 g intravenous q15 min PRN Giovanna Coles MD enoxaparin (Lovenox) syringe 40 mg 40 mg subcutaneous q24h Danny Deng MD 40 mg at 11/19/23 1858 glucagon (Glucagen) injection 1 mg 1 mg intramuscular q15 min PRN Giovanna Coles MD HYDROmorphone (Dilaudid) injection 0.2 mg 0.2 mg intravenous q3h PRN Giovanna Coles MD 0.2 mg at 11/19/23923 insulin lispro (HumaLOG) injection 0-10 Units 0-10 Units subcutaneous Before meals & nightly Giovanna Coles MD 2 Units at 11/18/232116 ipratropium-albuteroL (Duo-Neb) 0.5-2.5 mg/3 mL nebulizer solution 3 mL 3 mL nebulization q6h PRN Giovanna Coles MD lidocaine (Xylocaine) 10 mg/mL (1 %) injection 5 mL 5 mL infiltration Once Danny Deng MD nystatin (Mycostatin) 100,000 unit/gram powder 1 Application 1 Application Topical BID Le Null MD 1 Application at 11/19/232155 oxyCODONE (Roxicodone) immediate release tablet 10 mg 10 mg oral q4h PRN Giovanna Coles MD 10 mg at 11/19/232123 oxyCODONE (Roxicodone) immediate release tablet 5 mg 5 mg oral q4h PRN Giovanna Coles MD 5 mg at 11/20/23931 polyethylene glycol (Glycolax, Miralax) packet 34 g 34 g oral BID Giovanna Coles MD 34 g at 9 [Held by provider] rivaroxaban (Xarelto) tablet 20 mg 20 mg oral Daily Eulalia Champagne MD rosuvastatin (Crestor) tablet 10 mg 10 mg oral Nightly Giovanna Coles MD 10 mg at 11/19/232128 sennosides (Senokot) tablet 17.2 mg 2 tablet oral BID Giovanna Coles MD 17.2 mg at 11/20/2332 vancomycin (Vancocin) in dextrose 5 % water (D5W) 500 mL IV 1,500 mg 1,500 mg intravenous q24h Eulalia Champagne MD Stopped at 11/19/23 225 vancomycin (Vancocin) pharmacy to dose - pharmacy monitoring miscellaneous Daily PRN Giovanna Coles MD venlafaxine XR (Effexor-XR) 24 hr capsule 112.5 mg 112.5 mg oral Daily Monique Anders MD 112.5 mg at 11/20/23 0931 Physical Exam HENT: Head: Normocephalic and atraumatic. Nose: Nose normal. Mouth/Throat: Mouth: Mucous membranes are moist. Eyes: Conjunctiva/sclera: Conjunctivae normal. Cardiovascular: Rate and Rhythm: Normal rate. Rhythm irregular. Heart sounds: Murmur heard. Pulmonary: Effort: Pulmonary effort is normal. Breath sounds: Normal breath sounds. Abdominal: General: Abdomen is flat. Bowel sounds are normal. Palpations: Abdomen is soft. Musculoskeletal: Right lower leg: Edema present. Left lower leg: Edema present. Neurological: Mental Status: She is alert and oriented to person, place, and time. Psychiatric: Attention and Perception: Attention normal. Mood and Affect: Mood normal. Speech: Speech normal. Behavior: Behavior normal. Behavior is cooperative. Thought Content: Thought content normal. Cognition and Memory: Cognition is not impaired. Memory is not impaired. Judgment: Judgment normal. Comments: GDS: Confusion Assessment Method(CAM) for diagnosis of delirium: 1. Acute onset or fluctuating course: absent/present: Absent 2. Inattention: absent/present: Absent 3. Disorganized thinking: absent/present: Absent 4. Altered level of consciousness: absent/present: Absent CAM: negative AT Score For Assessment of Delirium and Cognitive Impairment: Alertness: 0 Normal(fully alert,but not agitated, throughout assessment)=0 Mild sleepiness for <10 seconds after walking, then normal=0 Clearly abnormal=4 2. AMT4: 0 No mistakes=0 One mistake=1 Two or more mistakes/untestable=2 3. Attention: 0 Achieves seven months or more correctly=0 Starts but scores <7 months/ refuses to start=1 Untestable(cannot start because unwell, drowsy, inattentive)=2 4. Acute: 0 No=0 Yes=4 Total Score: 0 4 or above: Possible delirium +/- cognitive impairment 1-3: Possible cognitive impairment 0: Delirium or severe cognitive impairment unlikely(but delirium still possible if (4) information incomplete) Last Recorded Vitals 11/19/2023 4:55 AM 11/19/2023 8:29 AM 11/19/2023 3:07 PM 11/19/2023 7:56 PM 11/19/2023 11:35 PM 11/20/2023 4:55 AM 11/20/2023 8:04 AM Vitals Systolic 91 99 102 102 99 104 145 Diastolic 57 63 66 53 59 68 89 Heart Rate 71 74 61 82 75 88 99 Temp 36.6 C (97.9 F) 36.9 C (98.4 F) 36.6 C (97.9 F) 37.2 C (99 F) 36.5 C (97.7 F) 36.2 C (97.2 F) 36.7 C (98.1 F) Resp 19 19 19 18 18 18 18 Vitals: 11/09/23 0230 Weight: 94.6 kg (208 lb 8.9 oz) Relevant Results Lab Results Component Value Date TSH 0.45 11/19/2023 [id number] 374 11/19/2023 VITD25 51 11/19/2023 HGBA1C 7.2 (H) 03/06/2023 Results from last 7 days Lab Units 11/19/23 0708 11/18/23 0601 11/17/23 0649 11/15/23 1533 11/14/23 0636 WBC AUTO x10*3/uL 8.0 8.8 7.3 < > 6.4 HEMOGLOBIN g/dL 8.5* 8.7* 9.1* < > 10.5* HEMATOCRIT % 27.2* 28.0* 29.3* < > 34.8* SODIUM mmol/L 138 137 137 < > 138 POTASSIUM mmol/L 3.8 3.9 4.0 < > 3.4* CHLORIDE mmol/L 100 98 99 < > 96* CREATININE mg/dL 0.61 0.66 0.63 < > 0.97 BUN mg/dL 14 14 14 < > 16 CO2 mmol/L 31 30 31 < > 35* INR -- -- -- -- 1.1 < > = values in this interval not displayed. XR chest 1 view Narrative: Interpreted By: Pastor Nieto, and Niraj Moreno STUDY: XR CHEST 1 VIEW; 11/16/2023 5:05 pm INDICATION: Signs/Symptoms:PICC PLACEMENT. COMPARISON: 11/13/2023 chest radiograph ACCESSION NUMBER(S): [id number] ORDERING CLINICIAN: RU ORTEGA FINDINGS: AP radiograph of the chest was provided. Interval placement of a left upper extremity PICC line with tip projecting over the upper superior vena cava. Numerous skin roberta overlying the right paramedian chest. CARDIOMEDIASTINAL SILHOUETTE: Cardiomediastinal silhouette is prominent and stable in size and configuration. LUNGS: Small left pleural effusion. Mild perihilar and infrahilar patchy opacities bilaterally, slightly increased compared to the prior exam. Mild biapical scarring without evidence of discrete pneumothorax. ABDOMEN: No remarkable upper abdominal findings. BONES: No acute osseous abnormality. Impression: 1. Small left pleural effusion with mildly increased perihilar infrahilar patchy opacities, possibly related to edema. No pneumothorax. 2. Interval placement of a left upper extremity PICC line with tip overlying the upper superior vena cava. I personally reviewed the image(s)/study and resident interpretation as stated by Dr. Tiffanie Healy MD. I agree with the findings as stated. This study was interpreted at [facility], [place], [place]. MACRO: None Signed by: Pastor Barrientos 11/17/2023 6:46 AM Dictation workstation: [id number] DATA: EKG: QTC Encounter Date: 11/09/23 ECG 12 Lead Result Value Ventricular Rate 73 Atrial Rate 73 MA Interval 196 QRS Duration 106 QT Interval 384 QTC Calculation(Bazett) 423 P Critz -24 R Critz -46 T Critz -41 QRS Count 12 Q Onset 205 P Onset 107 P Offset 148 T Offset 397 QTC Fredericia 410 Narrative Atrial fibrillation Left axis deviation Low voltage QRS Cannot rule out Anterior infarct , age undetermined Abnormal ECG Confirmed by Fabio Bee ([id number]) on 11/15/2023 2:34:28 PM Anti-psychotics in 48 hours: none Opioids/Benzodiazepines in 48 hours: yes, hydromorphone, oxycodone Anticholinergics on board:Yes - cyclobenzaprine Restraints:No Indwelling catheters:No Last BM: 11/18 UO in 24 hours: 300 mL Activity in the past 24 hours: bedrest Need for ambulatory devices: uses electric wheelchair This patient has a central line Reason for the central line remaining today? Parenteral medication Assessment/Plan 77 y.o. year old female, with past medical history relevant for major depressive disorder,on Effexor, chronic back pain with LLE pain, non-mobile, ambulates with motorized wheelchair, presenting withworsening low upper back pain and found to have T6-9 prevertebral phlegmon, as well as T6-7/T7 discitis/osteomyelitis. She underwent T7 vertebral body biopsy on 11/12 and T5-9 laminectomy and I& D for epidural abscess. All cultures are negative to date. She has a PICC line for IV antibiotics. Geriatrics has been consulted for anxiety/depression, passive SI. Principal Problem: Discitis, unspecified, thoracic region 1. Anxiety/depression, worsening in the context of current medical condition. Patient with long standing depression - Stressors include: 's a year ago, her son's from cystic fibrosis on Nov 22, 2003 and another son with cystic fibrosis and alcohol use disorder - Denies SI/HI - GDS: - Patient appreciated pastoral visit today - Recommend psychology services while at [facility] - Continue Effexor 112.5mg daily - Support provided to patient 2. Concern for cognitive impairment - CAM negative, 4AT: 0 - No concerns for cognitive impairment today, depression may be clouding mentation at times 3. Acute pain secondary to recent spinal surgery - Pain is controlled with current regimen - Monitor for delirium and constipation 4M AGE-FRIENDLY INITIATIVE: What matters most to patient: Family/son Medications: Flexeril, oxycodone Mentation: CAM negative, 4 AT: 0 Mobility: Patient is wheelchair bound at psychiatric Geriatric medicine will continue to follow the patient. Thank you for allowing geriatric medicine to be involved in the care of your patient. Geriatric medicine consultation team is available during work hours Sunday through Sunday. For any emergency issues requiring immediate assistance over the weekend, please page Geriatrics pager [phone] MACARENA Richardson * Elias Pappas - 11/20/2023 9:39 AM EDT Progress Note, 11/20/2023: History of Present Illness Daryn Shah is a 77 y.o. female currently on day 11 of admission for discitis. Interval History / Subjective No acute events overnight. Continued concern for depression & anxiety noted by nursing staff. Patient reports this as well. Noting that she wishes she wouldn't wake up, but no plans, no active SI/HI. Objective Vitals Visit Vitals BP 145/89 Pulse 99 Temp 36.7 C (98.1 F) (Temporal) Resp 18 I/O Intake/Output Summary (Last 24 hours) at 11/20/2023 0941 Last data filed at 11/20/2023 0933 Gross per 24 hour Intake 870 ml Output 760 ml Net 110 ml Physical Exam Physical Exam Constitutional: Appearance: Normal appearance. Cardiovascular: Rate and Rhythm: Normal rate. Heart sounds: Normal heart sounds. Pulmonary: Breath sounds: Normal breath sounds. Abdominal: Palpations: Abdomen is soft. Musculoskeletal: Comments: Clean wounds. Neurological: Mental Status: She is alert and oriented to person, place, and time. Labs CBC: Results from last 7 days Lab Units 11/19/23 0708 11/18/23 0601 11/17/23 0649 WBC AUTO x10*3/uL 8.0 8.8 7.3 HEMOGLOBIN g/dL 8.5* 8.7* 9.1* PLATELETS AUTO x10*3/uL 178 186 152 BMP: Results from last 7 days Lab Units 11/19/23 0708 11/18/23 0601 11/17/23 0649 SODIUM mmol/L 138 137 137 POTASSIUM mmol/L 3.8 3.9 4.0 CHLORIDE mmol/L 100 98 99 CO2 mmol/L 31 30 31 BUN mg/dL 14 14 14 CREATININE mg/dL 0.61 0.66 0.63 GLUCOSE mg/dL 122* 126* 130* LFT: Cardiac: Coag: Results from last 7 days Lab Units 11/14/23 0636 PROTIME seconds 12.7 APTT seconds 34 INR 1.1 ABG: Results from last 7 days Lab Units 11/14/23 1834 11/14/23 1636 POCT PH, ARTERIAL pH 7.47* 7.52* POCT PCO2, ARTERIAL mm Hg 40 36* POCT PO2, ARTERIAL mm Hg 189* 191* POCT HCO3 CALCULATED, ARTERIAL mmol/L 29.1* 29.4* POCT BASE EXCESS, ARTERIAL mmol/L 5.0* 6.2* . UA: Results from last 7 days Lab Units 11/13/23 1743 COLOR U Light-Yellow PH U 7.0 SPEC GRAV UR 1.011 PROTEIN U mg/dL 20 (TRACE) BLOOD UR NEGATIVE NITRITE U NEGATIVE WBC UR /HPF 1-5 Last EKG Encounter Date: 11/09/23 ECG 12 Lead Result Value Ventricular Rate 73 Atrial Rate 73 MA Interval 196 QRS Duration 106 QT Interval 384 QTC Calculation(Bazett) 423 P Critz -24 R Critz -46 T Critz -41 QRS Count 12 Q Onset 205 P Onset 107 P Offset 148 T Offset 397 QTC Fredericia 410 Narrative Atrial fibrillation Left axis deviation Low voltage QRS Cannot rule out Anterior infarct , age undetermined Abnormal ECG Confirmed by Fabio Bee ([id number]) on 11/15/2023 2:34:28 PM Imaging XR chest 1 view Result Date: 11/17/2023 1. Small left pleural effusion with mildly increased perihilar infrahilar patchy opacities, possibly related to edema. No pneumothorax. 2. Interval placement of a left upper extremity PICC line with tip overlying the upper superior vena cava. I personally reviewed the image(s)/study and resident interpretation as stated by Dr. Tiffanie Healy MD. I agree with the findings as stated. This study was interpreted at [place], [place]. MACRO: None Signed by: Pastor Barrientos 11/17/2023 6:46 AM Dictation workstation: [id number] CT guided percutaneous biopsy bone deep Result Date: 11/14/[address]-guided biopsy of the T7 vertebra. Specimens were sent to pathology/laboratory per requesting team. I was present for the entirety of the procedure as detailed above. I personally reviewed the images/study and I agree with the findings as stated by Justin Gaitca MD. This study was interpreted at [place], [place]. MACRO: None Signed by: Caron Donaldson 11/14/2023 8:11 AM Dictation workstation: [id number] XR chest 1 view Result Date: 11/14/2023 1. No acute abnormality of the chest. 2. Mild retrocardiac and left basilar atelectasis. I personally reviewed the image(s)/study and resident interpretation as stated by Dr. Tiffanie Healy MD. I agree with the findings as stated. This study was interpreted at [place], [place]. MACRO: None Signed by: Bunny Asher 11/14/2023 7:48 AM Dictation workstation: [id number] MR lumbar spine w and wo IV contrast Result Date: 11/06/2023 Multilevel degenerative disc disease and facet arthrosis most pronounced at L3- L4 with severe spinal canal and moderate bilateral neural foraminal stenosis. Mildly heterogeneous bone marrow signal isnonspecific. There is a hemangioma within the L4 vertebral body. Otherwise no focal lesion within the lumbar spine. I personally reviewed the images/study and I agree with the findings as stated. This study was interpreted at [place], [place]. MACRO: None Signed by: Lynda Bal 11/06/2023 1:29 PM Dictation workstation: [id number] MR thoracic spine w and wo IV contrast Result Date: 11/06/2023 There is abnormal signal within the disc spaces at T6-T7 and T7-T8 as well as abnormal signal throughout the T6 and T7 vertebral bodies and the majority of the T8 vertebral body suggesting discitis osteomyelitis at these levels. There is prevertebral and paraspinal infiltration with multiple subcentimeter T1 hypointense and rim enhancing collections within the paraspinal soft tissues suggesting small abscesses. There is greater than expected enhancement within the epidural space extending from T6 through T9 suggesting phlegmon. This results in severe spinal canal stenosis at these levels. Question subtle increased cord signal on the STIR sequence. MACRO: None Signed by: Lynda Bal 11/06/2023 1:24 PM Dictation workstation: [id number] MR cervical spine w and wo IV contrast Result Date: 11/06/2023 The examination is moderately degraded by patient motion artifact. Within this limitation, no evidence of focal osseous metastatic disease. No definite abnormal signal or enhancement within the cervical cord. Multilevel degenerative changes as detailed above. MACRO: None Signed by: Lynda Bal 11/06/2023 1:10 PM Dictation workstation: [id number] CT chest abdomen pelvis wo IV contrast Result Date: 11/06/2023 CHEST: 1. Endplate changes involving T6-7 and T7-8, indicative of discitis/osteomyelitis. Prominentprevertebral soft tissue swelling noted, indicative of phlegmonous changes. Evaluation for an abscess is limited due to lack of IV contrast. 2. Multiple right lung nodules. The largest is measured at 1.1 x 1.0 cm in the right middle lobe. Malignancy cannot be excluded. Follow-up with PET CT scan isrecommended. 3. Coronary artery calcifications. ABDOMEN/PELVIS: 1. Evaluation for an abscess is limited due to lack of IV contrast. 2. Left-sided nephrolithiasis, with no evidence of hydronephrosis. 3. Calcified uterine fibroids. Signed by Mychal Chavez MD CT thoracic spine wo IV contrast Result Date: 11/06/2023 Extensive calcifications of the great vessels Nephrolithiasis suspected Cholecystitis changes Mild bulbous prominence of the body of the pancreas. Recommend CT of the Abdomen with contrast designed to look at the pancreas. Coronary artery calcifications Minimal basilar fibrotic changes of the lungs Multifocal pulmonary nodules of the lungs seen bilaterally in conjunction with granulomatous changes. Certainly could not exclude metastatic disease in the lungs. May want to correlate with a formal chest CT to assess the entire lung parenchyma and certainly correlate with malignancy history. 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 Quite nonspecific but cannot exclude metastatic lesions of the thoracic spine There is endplate destructive changes involving T6-7, T7-8 with some associated surrounding soft tissue concerning for inflammatory discitis with associated bone destructive changes and presumed osteomyelitis.Recommend MRI exam as the next step in the evaluation---no gross canal narrowing. I have discussed this with Skinny Bee at 11/06/2023 6:33AMSigned by Jai Johnson MD Inpatient Medications Scheduled medications atenolol, 50 mg, oral, BID cefTRIAXone, 2 g, intravenous, q12h cholecalciferol, 2,000 Units, oral, Daily cyclobenzaprine, 5 mg, oral, TID enoxaparin, 40 mg, subcutaneous, q24h insulin lispro, 0-10 Units, subcutaneous, Before meals & nightly lidocaine, 5 mL, infiltration, Once nystatin, 1 Application, Topical, BID polyethylene glycol, 34 g, oral, BID [Held by provider] rivaroxaban, 20 mg, oral, Daily rosuvastatin, 10 mg, oral, Nightly sennosides, 2 tablet, oral, BID vancomycin, 1,500 mg, intravenous, q24h venlafaxine XR, 112.5 mg, oral, Daily Continuous medications PRN medications PRN medications: acetaminophen, alteplase, dextrose, dextrose, glucagon, HYDROmorphone, ipratropium-albuteroL, oxyCODONE, oxyCODONE, vancomycin Assessment & Plan Daryn Shah is a 77 y.o. female w/ PMHx of Afib (on Xeralto), COPD (?), DMII (A1c 7.2% 03/01) on day 8 of admission as a transfer from [facility] to [facility] for evaluation of back pain likely from osteomyelitis/discitis and work up of newly found multiple large lung nodules, c/f metastatic disease. MRI thoracic spine concerning for T6-T8 abnormal signaling suggestive of discitis / osteomyelitis, small abscess at T1 and epidural enhancement extending from T6-T9 suggestive of phlegmon. Status post OR 11/13 for T5-9 laminectomy for epidural abscess. Overall lower suspicion related to small pulmonary nodules. Patient had T7 vertebral body biopsy 11/12. All cultures all negative and final. Patient HDS, and on RA. Pain controlled. Started on Vanc + Zosyn and continuing per ID recs, PICC line placed for maintenance. 11/19 updates -Following geriatrics recommendations - inc effexor to 112.5, music therapy, river guide services -Working on dispo -Drains removed by NSGY, they will arrange outpatient follow up Principal Problem: ##T6-T8 C/f Discitis/Osteomyelitis #Phlegmon T6-T9 #Back Pain - S/p T5-T9 laminectomy 11/13, pain well controlled - Final Bcx no growth, ID following, 16S testing sent - Pending surg path Done: PICC line placed Plan: C/w Vanc and Ceftriaxone Follow up ID recs Follow up NSGY recs - managing drain and Prevena Follow up surgical pathology Pain control w/ tylenol + oxy, bowel regimen Restart Xarelto on post-op day 10 (11/24) per NSGY #Lung nodules - Noted on CT scan. Largest 1.0 x 1.1 cm Plan: Follow-up vertebral biopsy Consider outpatient PET scan/pulmonary follow-up #SIADH - Reportedly chronic problem. C/f paraneoplastic. - Na stable and in normal range this AM, can consider fluid restriction if down trending Plan: Monitor RFP Holding Maxide #Hypertension #Afib - c/w atenolol for rate control - c/w statin - Holding Xarelto, restart on post-op day 10 per NSGY - Holding Maxide and Lisinopril, can add lisinopril if Bps are not controlled. BP has actually beenon lower side for most of stay #Hypomagnesemia/Hypokalemia Monitor RFP, replete as needed #DM II - A1c 7.2% - Home regimen: Dulaglutide 3 mg weekly injections - C/w SSI #2 - Hypoglycemia protocol #Anxiety and Depression Patient tearful on exam this AM, noting passive SI again. Also, there is some anxiety related to son's (primary refrigerator assembler) health condition and when she can return home. Evaluated by Geriatrics - TSH, Vit B12, Vit D wnl; appreciate further recs Patient has been on effexor for years and does not believe it really helps with her mood. - Effexor 112.5 - Music therapy, spiritual services - Geriatrics consult, appreciate recs - Outpatient psych follow up #COPD (?) Noted on chart review but pt denies history. Denies shortness of breath, cough and sputum production - Duonebs and Albuterol PRN - Incentive spirometry Fluids: PRN Electrolytes: PRN Nutrition: Adult diet Consistent Carb; CCD 75 gm/meal Access: PRN DVT prophylaxis: Lovenox subq Code Status: DNR and No Intubation (Confirmed on admission) Emergency Contact / NOK: Extended Emergency Contact Information Primary Emergency Contact: BEVERLY SHAH Address: [address] [place] [id number] [facility] Mobile Relation: Son Preferred language: [place] [employer] Clerk needed? No Secondary Emergency Contact: Rissa SHAH Address: [address] [place] [id number] [facility] Mobile Relation: Son Preferred language: [place] [employer] Clerk needed? No Elias Pappas, 6 11/20/2023 Associated attestation - Sai Marie MD - 11/20/2023 2:19 PM EDT I saw and evaluated the patient. I personally obtained the pickering and critical portions of the historyand physical exam or was physically present for pickering and critical portions performed by the resident/fellow. I reviewed the resident/fellow's documentation and discussed the patient with the resident/gal moss. I agree with the resident/fellow's medical decision making as documented in the note with the exception/addition of the following: Awaiting placement . * Kay Putnam RN - 11/19/2023 3:41 PM EDT Transitional Care Coordination Progress Note: Patient discussed during interdisciplinary rounds. Team members present: DANIOL REHMAN Plan per Medical/Surgical team: Per medical team pt is medically ready for discharge, she has a PICC line in place for IV abx. Facility confirmed they can accommodate IV abx Vanc (dosed by pharmacy)/Ceftriaxone every 8 hours thru 12/25 per last ID note. Payer: [employer] Status: Inpatient Discharge disposition: [facility] Potential Barriers: none ADOD: 11/19 Secure chat sent to direct submit team to initiate precert. Per [facility] we have to complete pre-cert on our end as we our devoted contract is through [facility]. Please send therapy notes so we are able to start. Precert team confirmed precert has already been started and they will send over [facility], facility updated. [place]/discharge orders requested from the team for 7000 form. casting coordinator will continue to follow for discharge planning needs. Kay Putnam RN Transitional Manager Metal/TCC [id number] * Alonzo Antony OT - 11/19/2023 2:31 PM EDT Occupational Therapy OT Treatment Patient Name: Daryn Shah Today's Date: 11/19/2023 Time Calculation Start Time: 913 Stop Time: 929 Time Calculation (min): 16 min Assessment: Medical Staff Made Aware: Yes End of Session Communication: Bedside nurse End of Session Patient Position: Bed, 3 rail up, Alarm off, not on at start of session Medical Staff Made Aware: Yes Plan: Treatment Interventions: ADL retraining, Functional transfer training, Endurance training, Patient/family training, Equipment evaluation/education, Compensatory technique education OT Frequency: 3 times per week OT Discharge Recommendations: Moderate intensity level of continued care Equipment Recommended upon Discharge: (TBD) OT Recommended Transfer Status: Assist of 2 OT - OK to Discharge: (eval complete) Treatment Interventions: ADL retraining, Functional transfer training, Endurance training, Patient/family training, Equipment evaluation/education, Compensatory technique education Subjective Previous Visit Info: OT Last Visit OT Received On: 11/19/23 General: General Reason for Referral: re-eval s/p T5-9 lami for epidural abscess Co-Treatment: PT Co-Treatment Reason: To increase pt's participation and safety Prior to Session Communication: Bedside nurse Patient Position Received: Bed, 3 rail up, Alarm off, not on at start of session Preferred Learning Style: visual, verbal Precautions: Medical Precautions: Fall precautions Post-Surgical Precautions: Spinal precautions Precautions Comment: Pt was able to recall 1 out of 3 spine precautions. Education provided. Vital Signs: Pain: Pain Assessment Pain Assessment: 0-10 0-10 (Numeric) Pain Score: 8 Pain Type: Surgical pain Pain Location: Back Pain Interventions: (RN was notified) Objective Cognition: Cognition Overall Cognitive Status: Within Functional Limits Coordination: Movements are Fluid and Coordinated: Yes Activities of Daily Living: Feeding Feeding Level of Assistance: Setup Functional Standing Tolerance: Bed Mobility/Transfers: Bed Mobility Bed Mobility: Yes Bed Mobility 1 Bed Mobility 1: Supine to sitting, Sitting to supine, Log roll Level of Assistance 1: Minimum assistance, +1 to manage equipment, Minimal verbal cues Bed Mobility Comments 1: log roll Bed Mobility 2 Bed Mobility 2: Scooting Level of Assistance 2: Maximum assistance, +2, Minimal verbal cues Sitting Balance: Static Sitting Balance Static Sitting-Balance Support: No upper extremity supported Static Sitting-Level of Assistance: Close supervision Dynamic Sitting Balance Dynamic Sitting-Balance Support: Bilateral upper extremity supported Dynamic Sitting-Balance: (SBA) Therapy/Activity: Therapeutic Exercise Therapeutic Exercise Performed: Yes Therapeutic Exercise Activity 1: Pt completed neck slight flex/ext and rotation exercises x 5 reps while sitting at the side of the bed. Outcome Measures:[facility] Daily Activity Putting on and taking off regular lower body clothing: A lot Bathing (including washing, rinsing, drying): A lot Putting on and taking off regular upper body clothing: A little Toileting, which includes using toilet, bedpan or urinal: A lot Taking care of personal grooming such as brushing teeth: A little Eating Meals: A little Daily Activity - Total Score: 15 Education Documentation Body Mechanics, taught by Alonzo Antony OT at 11/19/2023 2:28 PM. Learner: Patient Readiness: Acceptance Method: Explanation Response: Verbalizes Understanding ADL Training, taught by Alonzo Antony OT at 11/19/2023 2:28 PM. Learner: Patient Readiness: Acceptance Method: Explanation Response: Verbalizes Understanding Education Comments No comments found. Goals: Encounter Problems Encounter Problems (Active) ADLs ADLs Patient with complete upper body dressing with stand by assist level of assistance donning and doffing all UE clothes with PRN adaptive equipment (Progressing) Start: 11/15/23 Expected End: 11/29/23 Patient with complete lower body dressing with minimal assist level of assistance donning and doffing all LE clothes with PRN adaptive equipment (Progressing) Start: 11/15/23 Expected End: 11/29/23 Patient will complete daily grooming tasks with set-up level of assistance and PRN adaptive equipment while edge of bed . (Progressing) Start: 11/15/23 Expected End: 11/29/23 Patient will complete toileting including hygiene clothing management/hygiene with minimal assist level of assistance. (Progressing) Start: 11/15/23 Expected End: 11/29/23 COGNITION/SAFETY Patient will recall and adhere to spinal precautions during all functional mobility/ADL tasks in order to demonstrate improved understanding and promote healing post op (Progressing) Start: 11/15/23 Expected End: 11/29/23 MOBILITY TRANSFERS TRANSFERS Patient will perform bed mobility minimal assist level of assistance in order to improve safety andindependence with mobility (Progressing) Start: 11/15/23 Expected End: 11/29/23 Patient will complete functional transfer to wheelchair/commode via slide board PRN with minimal assist level of assistance. (Progressing) Start: 11/15/23 Expected End: 11/29/23 Alonzo Antony OTR/L, OTD * Sophie Trevino, PT - 11/19/2023 1:01 PM EDT Physical Therapy Physical Therapy Treatment Patient Name: Daryn Shah Today's Date: 11/19/2023 Time Calculation Start Time: 913 Stop Time: 929 Time Calculation (min): 16 min Assessment/Plan PT Assessment End of Session Communication: Bedside nurse Assessment Comment: Pt tolerated session fair; reports increased pain with mobility. Patient emotional and upset during session. RN aware continue to rec mod. End of Session Patient Position: Bed, 3 rail up, Alarm off, not on at start of session PT Plan Treatment/Interventions: Bed mobility, Transfer training, Gait training, Balance training, Neuromuscular re-education, Strengthening, Endurance training, Range of motion, Therapeutic activity, Therapeutic exercise PT Plan: Ongoing PT PT Frequency: 3 times per week PT Discharge Recommendations: Moderate intensity level of continued care PT - OK to Discharge: Yes (indicates PT eval complete and dc rec determined) General Visit Information: PT Visit PT Received On: 11/19/23 Response to Previous Treatment: Patient with no complaints from previous session. General Co-Treatment: OT Co-Treatment Reason: maximize pt safety and function in low AMPAC score and pain limited Prior to Session Communication: Bedside nurse Patient Position Received: Bed, 3 rail up, Alarm off, not on at start of session General Comment: pt supine in bed, RN cleared. pt emotional during session, reporting pain and negative emotions. Subjective Precautions: Precautions Medical Precautions: Fall precautions Post-Surgical Precautions: Spinal precautions Objective Pain: Pain Assessment Pain Assessment: 0-10 0-10 (Numeric) Pain Score: 8 Pain Type: Surgical pain Pain Location: Back Pain Interventions: (RN give IV pain meds) Cognition: Cognition Overall Cognitive Status: Within Functional Limits Postural Control: Static Sitting Balance Static Sitting-Level of Assistance: Close supervision Static Sitting-Comment/Number of Minutes: 5 Activity Tolerance: Activity Tolerance Endurance: Tolerates 10 - 20 min exercise with multiple rests Treatments: Therapeutic Exercise Therapeutic Exercise Performed: Yes Therapeutic Exercise Activity 1: sitting EOB ankle pumps, LAQs and alternating marhces x10 bilateral LEs Therapeutic Activity Therapeutic Activity Performed: Yes Therapeutic Activity 1: pt completed log roll to EOB, reviewed precautions. Pt sat EOB but reports pain and upset with therapists. offered assist to return to supine and pt stating no ill do the exercises. what do you want me to do! Bed Mobility Bed Mobility: Yes Bed Mobility 1 Bed Mobility 1: Supine to sitting, Sitting to supine, Log roll Level of Assistance 1: Minimum assistance (x2) Bed Mobility Comments 1: cues for log roll Outcome Measures: AMPAC Basic Mobility Turning from your back to your side while in a flat bed without using bedrails: A little Moving from lying on your back to sitting on the side of a flat bed without using bedrails: A lot Moving to and from bed to chair (including a wheelchair): Total Standing up from a chair using your arms (e.g. wheelchair or bedside chair): Total To walk in hospital room: Total Climbing 3-5 steps with railing: Total Basic Mobility - Total Score: 9 Education Documentation Precautions, taught by Sophie Trevino PT at 11/19/2023 1:00 PM. Learner: Patient Readiness: Acceptance Method: Explanation Response: Verbalizes Understanding Comment: importance of therapy Mobility Training, taught by Sophie Trevino PT at 11/19/2023 1:00 PM. Learner: Patient Readiness: Acceptance Method: Explanation Response: Verbalizes Understanding Comment: importance of therapy Education Comments No comments found. OP EDUCATION: Encounter Problems Encounter Problems (Active) PT Transfers STG - Transfer from bed to chair SBA (Progressing) Start: 11/12/23 Expected End: 11/26/23 STG - Patient to transfer to and from sit to supine indep (Progressing) Start: 11/12/23 Expected End: 11/26/23 STG - Patient will roll indep (Progressing) Start: 11/12/23 Expected End: 11/26/23 STG - Patient will transfer sit to and from stand LRAD mod A (Progressing) Start: 11/12/23 Expected End: 11/26/23 Pain - Adult * Raul Chaney, PharmD - 11/19/2023 9:19 AM EDT Vancomycin Dosing by Pharmacy- FOLLOW UP Daryn Shah is a 77 y.o. year old female who Pharmacy has been consulted for vancomycin dosing for osteomyelitis/septic arthritis. Based on the patient's indication and renal status this patient is being dosed based on a goal AUC of 400-600. Renal function is currently stable. Current vancomycin dose: 1250 mg given every 24 hours Estimated vancomycin AUC on current dose: 347 mg/L.hr Visit Vitals BP 99/63 Pulse 74 Temp 36.9 C (98.4 F) Resp 19 Lab Results Component Value Date CREATININE 0.61 11/19/2023 CREATININE 0.66 11/18/2023 CREATININE 0.63 11/17/2023 CREATININE 0.77 11/16/2023 Patient weight is as follows: Vitals: 11/09/23 0230 Weight: 94.6 kg (208 lb 8.9 oz) Cultures: No results found for the encounter in last 14 days. I/O last 3 completed shifts: In: 590 (6.2 mL/kg) [P.O.:240; IV Piggyback:350] Out: 245 (2.6 mL/kg) [Urine:200 (0.1 mL/kg/hr); Drains:45] Weight: 94.6 kg I/O during current shift: No intake/output data recorded. Temp (24hrs), Av.7 C (98.1 F), Min:36.3 C (97.3 F), Max:37.2 C (99 F) Assessment/Plan Below goal AUC. Orders placed for new vancomcyin regimen of 1500 every 24 hours to begin at 1999. This dosing regimen is predicted by [employer] to result in the following pharmacokinetic parameters: Loading dose: N/A Regimen: 1500 mg IV every 24 hours. Start time: 20:56 on 11/19/2023 Exposure target: AUC24 (range)400-600 mg/L.hr AUC24,ss: 411 mg/L.hr Probability of AUC24 > 400: 59 % Ctrough,ss: 11.7 mg/L Probability of Ctrough,ss > 20: 0 % Probability of nephrotoxicity (Lodise GIANNA 2008): 7 % The next level will be obtained on 11/19 at AM labs. May be obtained sooner if clinically indicated. Will continue to monitor renal function daily while on vancomycin and order serum creatinine at least every 48 hours if not already ordered. Follow for continued vancomycin needs, clinical response, and signs/symptoms of toxicity. Raul Chaney, PharmD * Carrington De Los Santos MD - 11/19/2023 7:03 AM EDT Daryn Shah is a 77 y.o. female on day 10 of admission presenting with Discitis, unspecified, thoracic region. Subjective No acute events overnight, Pain well-controlled and patient doing well Objective Physical Exam AOx3 RUE D4 (chronic) B5 T5 HG/IO 5 BLE 5/[address] Drain in place Last Recorded Vitals Blood pressure 91/57, pulse 71, temperature 36.6 C (97.9 F), resp. rate 19, height 1.702 m (5' 7.01), weight 94.6 kg (208 lb 8.9 oz), SpO2 94%. Intake/Output last 3 Shifts: I/O last 3 completed shifts: In: 590 (6.2 mL/kg) [P.O.:240; IV Piggyback:350] Out: 245 (2.6 mL/kg) [Urine:200 (0.1 mL/kg/hr); Drains:45] Weight: 94.6 kg Relevant Results Lab Results Component Value Date WBC 8.8 11/18/2023 HGB 8.7 (L) 11/18/2023 HCT 28.0 (L) 11/18/2023 MCV 87 11/18/2023 PLT 186 11/18/2023 Lab Results Component Value Date GLUCOSE 126 (H) 11/18/2023 CALCIUM 8.0 (L) 11/18/2023 NA 137 11/18/2023 K 3.9 11/18/2023 CO2 30 11/18/2023 CL 98 11/18/2023 BUN 14 11/18/2023 CREATININE 0.66 11/18/2023 Assessment/Plan Principal Problem: Discitis, unspecified, thoracic region Daryn is a 77 y.o. female with h/o Afib on Xarelto, HTN, HLD, T2DM, T2DM, SIADH, COPD, anxiety p/w back pain x 3wks, bedbound at baseline. MRI TS T6-9 discitis/OM, pre-vertebral phlegmon, CT CAP multiple R lung nodules 8/6 s/p IR guided T spine biopsy 8/7 s/p T5-9 lami for epidural abscess Plan: Naff primary Continue drain and prevena - please record output of drain DNR/DNI Please encourage patient to be out of bed, work with PTOT Antibiotic management per ID and primary team Neurosurgery will continue to follow Carrington Mandybur, MD * Elias Pappas - 11/19/2023 6:45 AM EDT Progress Note, 11/19/2023: History of Present Illness Daryn Shah is a 77 y.o. female currently on day 10 of admission for discitis. Interval History / Subjective No acute events overnight. PICC line in place. Pain well controlled. Neurosurgery & ID following. Planning discharge to SNF, patient agreeable. Patient tearful during AM rounds. Noting she has no active SI or plan but wishes she would not wakeup each morning. Feeling upset about her inability to do ADLs at home, her son's hospitalization. Also, was not wanting to work with PT since is afraid of pushing herself. However, later, she noted PT was helpful for her back. Objective Vitals Visit Vitals BP 91/57 Pulse 71 Temp 36.6 C (97.9 F) Resp 19 I/O Intake/Output Summary (Last 24 hours) at 11/19/2023 0645 Last data filed at 11/18/2023 2300 Gross per 24 hour Intake -- Output 15 ml Net -15 ml Physical Exam Physical Exam Constitutional: Appearance: Normal appearance. Cardiovascular: Rate and Rhythm: Normal rate. Heart sounds: Normal heart sounds. Pulmonary: Breath sounds: Normal breath sounds. Abdominal: Palpations: Abdomen is soft. Musculoskeletal: Comments: Clean wounds. Drain w/ Prevena in place. Neurological: Mental Status: She is alert and oriented to person, place, and time. Labs CBC: Results from last 7 days Lab Units 11/18/23 0601 11/17/23 0649 11/16/23 1833 WBC AUTO x10*3/uL 8.8 7.3 9.6 HEMOGLOBIN g/dL 8.7* 9.1* 9.1* PLATELETS AUTO x10*3/uL 186 152 192 BMP: Results from last 7 days Lab Units 11/18/23 0601 11/17/23 0649 11/16/23 1833 SODIUM mmol/L 137 137 137 POTASSIUM mmol/L 3.9 4.0 3.3* CHLORIDE mmol/L 98 99 97* CO2 mmol/L 30 31 31 BUN mg/dL 14 14 17 CREATININE mg/dL 0.66 0.63 0.77 GLUCOSE mg/dL 126* 130* 141* LFT: Results from last 7 days Lab Units 11/12/23 0757 AST U/L 17 ALT U/L 8 ALK PHOS U/L 143* BILIRUBIN TOTAL mg/dL 0.3 BILIRUBIN DIRECT mg/dL 0.1 Cardiac: Coag: Results from last 7 days Lab Units 11/14/23 0636 PROTIME seconds 12.7 APTT seconds 34 INR 1.1 ABG: Results from last 7 days Lab Units 11/14/23 1834 11/14/23 1636 POCT PH, ARTERIAL pH 7.47* 7.52* POCT PCO2, ARTERIAL mm Hg 40 36* POCT PO2, ARTERIAL mm Hg 189* 191* POCT HCO3 CALCULATED, ARTERIAL mmol/L 29.1* 29.4* POCT BASE EXCESS, ARTERIAL mmol/L 5.0* 6.2* . UA: Results from last 7 days Lab Units 11/13/23 1743 COLOR U Light-Yellow PH U 7.0 SPEC GRAV UR 1.011 PROTEIN U mg/dL 20 (TRACE) BLOOD UR NEGATIVE NITRITE U NEGATIVE WBC UR /HPF 1-5 Last EKG Encounter Date: 11/09/23 ECG 12 Lead Result Value Ventricular Rate 73 Atrial Rate 73 MA Interval 196 QRS Duration 106 QT Interval 384 QTC Calculation(Bazett) 423 P Critz -24 R Critz -46 T Critz -41 QRS Count 12 Q Onset 205 P Onset 107 P Offset 148 T Offset 397 QTC Fredericia 410 Narrative Atrial fibrillation Left axis deviation Low voltage QRS Cannot rule out Anterior infarct , age undetermined Abnormal ECG Confirmed by Fabio Bee ([id number]) on 11/15/2023 2:34:28 PM Imaging XR chest 1 view Result Date: 11/17/2023 1. Small left pleural effusion with mildly increased perihilar infrahilar patchy opacities, possibly related to edema. No pneumothorax. 2. Interval placement of a left upper extremity PICC line with tip overlying the upper superior vena cava. I personally reviewed the image(s)/study and resident interpretation as stated by Dr. Tiffanie Healy MD. I agree with the findings as stated. This study was interpreted at [facility], [place], [place]. MACRO: None Signed by: Pastor Daronlindsay Barrientos 11/17/2023 6:46 AM Dictation workstation: [id number] CT guided percutaneous biopsy bone deep Result Date: 11/14/[address]-guided biopsy of the T7 vertebra. Specimens were sent to pathology/laboratory per requesting team. I was present for the entirety of the procedure as detailed above. I personally reviewed the images/study and I agree with the findings as stated by Justin Gatica MD. This study was interpreted at [place], [place]. MACRO: None Signed by: Caron Donaldson 11/14/2023 8:11 AM Dictation workstation: [id number] XR chest 1 view Result Date: 11/14/2023 1. No acute abnormality of the chest. 2. Mild retrocardiac and left basilar atelectasis. I personally reviewed the image(s)/study and resident interpretation as stated by Dr. Tiffanie Healy MD. I agree with the findings as stated. This study was interpreted at [place], [place]. MACRO: None Signed by: Bunny Asehr 11/14/2023 7:48 AM Dictation workstation: [id number] MR lumbar spine w and wo IV contrast Result Date: 11/06/2023 Multilevel degenerative disc disease and facet arthrosis most pronounced at L3- L4 with severe spinal canal and moderate bilateral neural foraminal stenosis. Mildly heterogeneous bone marrow signal isnonspecific. There is a hemangioma within the L4 vertebral body. Otherwise no focal lesion within the lumbar spine. I personally reviewed the images/study and I agree with the findings as stated. This study was interpreted at [place], [place]. MACRO: None Signed by: Lynda Bal 11/06/2023 1:29 PM Dictation workstation: [id number] MR thoracic spine w and wo IV contrast Result Date: 11/06/2023 There is abnormal signal within the disc spaces at T6-T7 and T7-T8 as well as abnormal signal throughout the T6 and T7 vertebral bodies and the majority of the T8 vertebral body suggesting discitis osteomyelitis at these levels. There is prevertebral and paraspinal infiltration with multiple subcentimeter T1 hypointense and rim enhancing collections within the paraspinal soft tissues suggesting small abscesses. There is greater than expected enhancement within the epidural space extending from T6 through T9 suggesting phlegmon. This results in severe spinal canal stenosis at these levels. Question subtle increased cord signal on the STIR sequence. MACRO: None Signed by: Lynda Bal 11/06/2023 1:24 PM Dictation workstation: [id number] MR cervical spine w and wo IV contrast Result Date: 11/06/2023 The examination is moderately degraded by patient motion artifact. Within this limitation, no evidence of focal osseous metastatic disease. No definite abnormal signal or enhancement within the cervical cord. Multilevel degenerative changes as detailed above. MACRO: None Signed by: Lynda Bal 11/06/2023 1:10 PM Dictation workstation: [id number] CT chest abdomen pelvis wo IV contrast Result Date: 11/06/2023 CHEST: 1. Endplate changes involving T6-7 and T7-8, indicative of discitis/osteomyelitis. Prominentprevertebral soft tissue swelling noted, indicative of phlegmonous changes. Evaluation for an abscess is limited due to lack of IV contrast. 2. Multiple right lung nodules. The largest is measured at 1.1 x 1.0 cm in the right middle lobe. Malignancy cannot be excluded. Follow-up with PET CT scan isrecommended. 3. Coronary artery calcifications. ABDOMEN/PELVIS: 1. Evaluation for an abscess is limited due to lack of IV contrast. 2. Left-sided nephrolithiasis, with no evidence of hydronephrosis. 3. Calcified uterine fibroids. Signed by Mychal Chavez MD CT thoracic spine wo IV contrast Result Date: 11/06/2023 Extensive calcifications of the great vessels Nephrolithiasis suspected Cholecystitis changes Mild bulbous prominence of the body of the pancreas. Recommend CT of the Abdomen with contrast designed to look at the pancreas. Coronary artery calcifications Minimal basilar fibrotic changes of the lungs Multifocal pulmonary nodules of the lungs seen bilaterally in conjunction with granulomatous changes. Certainly could not exclude metastatic disease in the lungs. May want to correlate with a formal chest CT to assess the entire lung parenchyma and certainly correlate with malignancy history. 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 Quite nonspecific but cannot exclude metastatic lesions of the thoracic spine There is endplate destructive changes involving T6-7, T7-8 with some associated surrounding soft tissue concerning for inflammatory discitis with associated bone destructive changes and presumed osteomyelitis.Recommend MRI exam as the next step in the evaluation---no gross canal narrowing. I have discussed this with Skinny Bee at 11/06/2023 6:33AMSigned by Jai Johnson MD Inpatient Medications Scheduled medications atenolol, 50 mg, oral, BID cefTRIAXone, 2 g, intravenous, q12h cholecalciferol, 2,000 Units, oral, Daily cyclobenzaprine, 5 mg, oral, TID enoxaparin, 40 mg, subcutaneous, q24h insulin lispro, 0-10 Units, subcutaneous, Before meals & nightly lidocaine, 5 mL, infiltration, Once nystatin, 1 Application, Topical, BID polyethylene glycol, 34 g, oral, BID [Held by provider] rivaroxaban, 20 mg, oral, Daily rosuvastatin, 10 mg, oral, Nightly sennosides, 2 tablet, oral, BID vancomycin, 1,250 mg, intravenous, q24h venlafaxine XR, 75 mg, oral, Daily Continuous medications PRN medications PRN medications: acetaminophen, alteplase, dextrose, dextrose, glucagon, HYDROmorphone, ipratropium-albuteroL, oxyCODONE, oxyCODONE, vancomycin Assessment & Plan Daryn Shah is a 77 y.o. female w/ PMHx of Afib (on Xeralto), COPD (?), DMII (A1c 7.2% 03/01) on day 8 of admission as a transfer from [facility] to [facility] for evaluation of back pain likely from osteomyelitis/discitis and work up of newly found multiple large lung nodules, c/f metastatic disease. MRI thoracic spine concerning for T6-T8 abnormal signaling suggestive of discitis / osteomyelitis, small abscess at T1 and epidural enhancement extending from T6-T9 suggestive of phlegmon. Status post OR 11/13 for T5-9 laminectomy for epidural abscess. Overall lower suspicion related to small pulmonary nodules. Patient had T7 vertebral body biopsy 11/12. All cultures all negative and final. Patient HDS, and on RA. Pain controlled. Started on Vanc + Zosyn and continuing per ID recs, PICC line placed for maintenance. 11/18 updates -Geriatrics consult for anxiety and depression, passive SI, possible adjustment issues -Working on dispo, has accepting SNF Principal Problem: ##T6-T8 C/f Discitis/Osteomyelitis #Phlegmon T6-T9 #Back Pain - S/p T5-T9 laminectomy 11/13, pain well controlled - Final Bcx no growth, ID following Done: PICC line placed Plan: C/w Vanc and Ceftriaxone Follow up ID recs Follow up NSGY recs - managing drain and Prevena Follow up surgical pathology Pain control w/ tylenol + oxy, bowel regimen Restart Xarelto on post-op day 10 (11/24) per NSGY #Lung nodules - Noted on CT scan. Largest 1.0 x 1.1 cm Plan: Follow-up vertebral biopsy Consider outpatient PET scan/pulmonary follow-up #SIADH - Reportedly chronic problem. C/f paraneoplastic. - Na stable and in normal range this AM, can consider fluid restriction if down trending Plan: Monitor RFP Holding Maxide #Hypertension #Afib - c/w atenolol for rate control - c/w statin - Holding Xarelto, restart on post-op day 10 per NSGY - Holding Maxide and Lisinopril, can add lisinopril if Bps are not controlled. BP has actually beenon lower side for most of stay #Hypomagnesemia/Hypokalemia Monitor RFP, replete as needed #DM II - A1c 7.2% - Home regimen: Dulaglutide 3 mg weekly injections - C/w SSI #2 - Hypoglycemia protocol #Anxiety and Depression Patient tearful on exam this AM, noting passive SI again. Also, there is some anxiety related to son's (primary refrigerator assembler) health condition and when she can return home. Would likely benefit from geriatrics evaluation. Patient has been on effexor for years and does not believe it really helps with her mood. - Geriatrics consult, appreciate recs - C/w Effexor for now - Outpatient psych follow up #COPD (?) Noted on chart review but pt denies history. Denies shortness of breath, cough and sputum production - Duonebs and Albuterol PRN - Incentive spirometry Fluids: PRN Electrolytes: PRN Nutrition: Adult diet Consistent Carb; CCD 75 gm/meal Access: PRN DVT prophylaxis: Lovenox subq Code Status: DNR and No Intubation (Confirmed on admission) Emergency Contact / NOK: Extended Emergency Contact Information Primary Emergency Contact: BEVERLY SHAH Address: [address] [place] [phone] [facility] Mobile Relation: Son Preferred language: [place] [employer] Clerk needed? No Secondary Emergency Contact: Rissa SHAH Address: [address] [place] [phone] [facility] Mobile Relation: Son Preferred language: [place] [employer] Clerk needed? No Elias Pappas, MS4 11/19/2023 Associated attestation - Sai Marie MD - 11/19/2023 3:25 PM EDT I saw and evaluated the patient. I personally obtained the pickering and critical portions of the historyand physical exam or was physically present for pickering and critical portions performed by the resident/fellow. I reviewed the resident/fellow's documentation and discussed the patient with the resident/gal moss. I agree with the resident/fellow's medical decision making as documented in the note with the exception/addition of the following: Will ask geriatrics to see as she is troubled by her personal situation. Awaiting placement. * Hayley Meléndez, CONE EXAMINER - 11/18/2023 7:56 PM EDT Recreation Therapy Note Therapy Session Visit Type: Follow-up visit Session Start Time: 1729 Session End Time: 1814 Intervention Delivery: In-person Conflict of Service: None Number of family members present: 0 Family Present for Session: None Family Participation: None Number of staff members present: 1 Pre-assessment Unable to Assess Reason: Outcomes not applicable Mood/Affect: Appropriate, Calm Verbalized Emotional State: (none noted) Treatment Areas of Focus: Coping, Socialization, Self-expression, Normalization, Stress reduction Co-Treatment: (none) Interruption: No Patient Fell Asleep at End of Session: No Post-assessment Unable to Assess Reason: Outcomes not applicable Mood/Affect: Appropriate, Calm, Cooperative, Participative Verbalized Emotional State: (none verbalized) Continue Visiting: Yes Total Session Time (min): 45 minutes Narrative Assessment Detail: Patient was finishing her dinner upon approach and was agreeable to engage in a recreational therapy session. Plan: To encourage the exploration of safe and effective positive leisure coping skills to manage situational stressors. Intervention: Patient chose to work on a sand art craft. Evaluation: Patient was pleasant, invested and social throughout the session. Completed a sand art project. Follow-up: Will continue to encourage the exploration of positive leisure coping skills. Patient Comments: None noted. * Opal Fernando RN - 11/18/2023 3:31 PM EDT Transitional Manager Metal Progress Note: Pt is medically ready for discharge to SNF. Reviewed SNF referral results with pt. [facility] is [facility]. SNF was notified they are FOC. Requested updated therapy notes for tomorrow. SNF will initiate precert once updated therapy notes are received. casting coordinator will continue to follow for discharge planning needs. Opal LUNA, RN- Transitional Manager Metal ([facility]) [phone] * Terry Lyons MD - 11/18/2023 9:05 AM EDT Daryn Shah is a 77 y.o. female on day 9 of admission presenting with Discitis, unspecified, thoracic region. Subjective Pain controlled Objective Physical Exam AOx3 RUE D4 (chronic) B5 T5 HG/IO 5 BLE 5/[address] Drain in place Last Recorded Vitals Blood pressure 89/52, pulse 78, temperature 36.3 C (97.3 F), resp. rate 18, height 1.702 m (5' 7.01), weight 94.6 kg (208 lb 8.9 oz), SpO2 97%. Intake/Output last 3 Shifts: I/O last 3 completed shifts: In: 2655 (28.1 mL/kg) [P.O.:1750; IV Piggyback:905] Out: 555 (5.9 mL/kg) [Urine:525 (0.2 mL/kg/hr); Drains:30] Weight: 94.6 kg Relevant Results Lab Results Component Value Date WBC 8.8 11/18/2023 HGB 8.7 (L) 11/18/2023 HCT 28.0 (L) 11/18/2023 MCV 87 11/18/2023 PLT 186 11/18/2023 Lab Results Component Value Date GLUCOSE 126 (H) 11/18/2023 CALCIUM 8.0 (L) 11/18/2023 NA 137 11/18/2023 K 3.9 11/18/2023 CO2 30 11/18/2023 CL 98 11/18/2023 BUN 14 11/18/2023 CREATININE 0.66 11/18/2023 Assessment/Plan Principal Problem: Discitis, unspecified, thoracic region Daryn is a 77 y.o. female with h/o Afib on Xarelto, HTN, HLD, T2DM, T2DM, SIADH, COPD, anxiety p/w back pain x 3wks, bedbound at baseline. MRI TS T6-9 discitis/OM, pre-vertebral phlegmon, CT CAP multiple R lung nodules / s/p IR guided T spine biopsy 11/13 s/p T5-9 lami for epidural abscess Plan: Naff primary Continue drain and prevena DNR/DNI Please encourage patient to be out of bed, work with PTOT Antibiotic management per ID and primary team Neurosurgery will continue to follow Terry Lyons MD * Thomas Hoffman MD - 11/17/2023 12:32 PM EDT Progress Note, 11/17/2023: History of Present Illness Daryn Shah is a 77 y.o. female currently on day 8 of admission for discitis. Interval History / Subjective No acute events overnight. PICC line in place. Pain well controlled. Neurosurgery & ID following. Planning discharge to SNF, patient agreeable. Objective Vitals Visit Vitals BP 104/59 Pulse 72 Temp 36.5 C (97.7 F) Resp 18 I/O Intake/Output Summary (Last 24 hours) at 11/17/2023 1232 Last data filed at 11/17/2023 0631 Gross per 24 hour Intake 1035 ml Output 50 ml Net 985 ml Physical Exam Physical Exam Constitutional: Appearance: Normal appearance. Cardiovascular: Rate and Rhythm: Normal rate. Heart sounds: Normal heart sounds. Pulmonary: Breath sounds: Normal breath sounds. Abdominal: Palpations: Abdomen is soft. Musculoskeletal: Comments: Clean wounds. Drain w/ Prevena in place. Neurological: Mental Status: She is alert and oriented to person, place, and time. Labs CBC: Results from last 7 days Lab Units 11/17/23 0649 11/16/23 1833 11/15/23 1533 WBC AUTO x10*3/uL 7.3 9.6 10.9 HEMOGLOBIN g/dL 9.1* 9.1* 9.8* PLATELETS AUTO x10*3/uL 152 192 234 BMP: Results from last 7 days Lab Units 11/17/23 0649 11/16/23 1833 11/15/23 1533 SODIUM mmol/L 137 137 135* POTASSIUM mmol/L 4.0 3.3* 3.8 CHLORIDE mmol/L 99 97* 96* CO2 mmol/L 31 31 29 BUN mg/dL 14 17 20 CREATININE mg/dL 0.63 0.77 0.95 GLUCOSE mg/dL 130* 141* 183* LFT: Results from last 7 days Lab Units 11/12/23 0757 AST U/L 17 ALT U/L 8 ALK PHOS U/L 143* BILIRUBIN TOTAL mg/dL 0.3 BILIRUBIN DIRECT mg/dL 0.1 Cardiac: Coag: Results from last 7 days Lab Units 11/14/23 0636 PROTIME seconds 12.7 APTT seconds 34 INR 1.1 ABG: Results from last 7 days Lab Units 11/14/23 1834 11/14/23 1636 POCT PH, ARTERIAL pH 7.47* 7.52* POCT PCO2, ARTERIAL mm Hg 40 36* POCT PO2, ARTERIAL mm Hg 189* 191* POCT HCO3 CALCULATED, ARTERIAL mmol/L 29.1* 29.4* POCT BASE EXCESS, ARTERIAL mmol/L 5.0* 6.2* . UA: Results from last 7 days Lab Units 11/13/23 1743 COLOR U Light-Yellow PH U 7.0 SPEC GRAV UR 1.011 PROTEIN U mg/dL 20 (TRACE) BLOOD UR NEGATIVE NITRITE U NEGATIVE WBC UR /HPF 1-5 Last EKG Encounter Date: 11/09/23 ECG 12 Lead Result Value Ventricular Rate 73 Atrial Rate 73 MA Interval 196 QRS Duration 106 QT Interval 384 QTC Calculation(Bazett) 423 P Critz -24 R Critz -46 T Critz -41 QRS Count 12 Q Onset 205 P Onset 107 P Offset 148 T Offset 397 QTC Fredericia 410 Narrative Atrial fibrillation Left axis deviation Low voltage QRS Cannot rule out Anterior infarct , age undetermined Abnormal ECG Confirmed by Fabio Bee ([id number]) on 11/15/2023 2:34:28 PM Imaging XR chest 1 view Result Date: 11/17/2023 1. Small left pleural effusion with mildly increased perihilar infrahilar patchy opacities, possibly related to edema. No pneumothorax. 2. Interval placement of a left upper extremity PICC line with tip overlying the upper superior vena cava. I personally reviewed the image(s)/study and resident interpretation as stated by Dr. Tiffanie Healy MD. I agree with the findings as stated. This study was interpreted at [place], [place]. MACRO: None Signed by: Pastor Barrientos 11/17/2023 6:46 AM Dictation workstation: [id number] CT guided percutaneous biopsy bone deep Result Date: 11/14/[address]-guided biopsy of the T7 vertebra. Specimens were sent to pathology/laboratory per requesting team. I was present for the entirety of the procedure as detailed above. I personally reviewed the images/study and I agree with the findings as stated by Justin Gatica MD. This study was interpreted at [place], [place]. MACRO: None Signed by: Caron Donaldson 11/14/2023 8:11 AM Dictation workstation: [id number] XR chest 1 view Result Date: 11/14/2023 1. No acute abnormality of the chest. 2. Mild retrocardiac and left basilar atelectasis. I personally reviewed the image(s)/study and resident interpretation as stated by Dr. Tiffanie Healy MD. I agree with the findings as stated. This study was interpreted at [facility], [place]. MACRO: None Signed by: Bunny Asher 11/14/2023 7:48 AM Dictation workstation: [id number] MR lumbar spine w and wo IV contrast Result Date: 11/06/2023 Multilevel degenerative disc disease and facet arthrosis most pronounced at L3- L4 with severe spinal canal and moderate bilateral neural foraminal stenosis. Mildly heterogeneous bone marrow signal isnonspecific. There is a hemangioma within the L4 vertebral body. Otherwise no focal lesion within the lumbar spine. I personally reviewed the images/study and I agree with the findings as stated. This study was interpreted at [place], [place]. MACRO: None Signed by: Lynda Bal 11/06/2023 1:29 PM Dictation workstation: [id number] MR thoracic spine w and wo IV contrast Result Date: 11/06/2023 There is abnormal signal within the disc spaces at T6-T7 and T7-T8 as well as abnormal signal throughout the T6 and T7 vertebral bodies and the majority of the T8 vertebral body suggesting discitis osteomyelitis at these levels. There is prevertebral and paraspinal infiltration with multiple subcentimeter T1 hypointense and rim enhancing collections within the paraspinal soft tissues suggesting small abscesses. There is greater than expected enhancement within the epidural space extending from T6 through T9 suggesting phlegmon. This results in severe spinal canal stenosis at these levels. Question subtle increased cord signal on the STIR sequence. MACRO: None Signed by: Lynda Bal 11/06/2023 1:24 PM Dictation workstation: [id number] MR cervical spine w and wo IV contrast Result Date: 11/06/2023 The examination is moderately degraded by patient motion artifact. Within this limitation, no evidence of focal osseous metastatic disease. No definite abnormal signal or enhancement within the cervical cord. Multilevel degenerative changes as detailed above. MACRO: None Signed by: Lynda Bal 11/06/2023 1:10 PM Dictation workstation: [id number] CT chest abdomen pelvis wo IV contrast Result Date: 11/06/2023 CHEST: 1. Endplate changes involving T6-7 and T7-8, indicative of discitis/osteomyelitis. Prominentprevertebral soft tissue swelling noted, indicative of phlegmonous changes. Evaluation for an abscess is limited due to lack of IV contrast. 2. Multiple right lung nodules. The largest is measured at 1.1 x 1.0 cm in the right middle lobe. Malignancy cannot be excluded. Follow-up with PET CT scan isrecommended. 3. Coronary artery calcifications. ABDOMEN/PELVIS: 1. Evaluation for an abscess is limited due to lack of IV contrast. 2. Left-sided nephrolithiasis, with no evidence of hydronephrosis. 3. Calcified uterine fibroids. Signed by Mychal Chavez MD CT thoracic spine wo IV contrast Result Date: 11/06/2023 Extensive calcifications of the great vessels Nephrolithiasis suspected Cholecystitis changes Mild bulbous prominence of the body of the pancreas. Recommend CT of the Abdomen with contrast designed to look at the pancreas. Coronary artery calcifications Minimal basilar fibrotic changes of the lungs Multifocal pulmonary nodules of the lungs seen bilaterally in conjunction with granulomatous changes. Certainly could not exclude metastatic disease in the lungs. May want to correlate with a formal chest CT to assess the entire lung parenchyma and certainly correlate with malignancy history. 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 Quite nonspecific but cannot exclude metastatic lesions of the thoracic spine There is endplate destructive changes involving T6-7, T7-8 with some associated surrounding soft tissue concerning for inflammatory discitis with associated bone destructive changes and presumed osteomyelitis.Recommend MRI exam as the next step in the evaluation---no gross canal narrowing. I have discussed this with Skinny Bee at 11/06/2023 6:33AMSigned by Jai Johnson MD Inpatient Medications Scheduled medications atenolol, 50 mg, oral, BID cefTRIAXone, 2 g, intravenous, q12h cholecalciferol, 2,000 Units, oral, Daily cyclobenzaprine, 5 mg, oral, TID enoxaparin, 40 mg, subcutaneous, q24h insulin lispro, 0-10 Units, subcutaneous, Before meals & nightly lidocaine, 5 mL, infiltration, Once magnesium sulfate, 2 g, intravenous, Once nystatin, 1 Application, Topical, BID polyethylene glycol, 34 g, oral, BID [Held by provider] rivaroxaban, 20 mg, oral, Daily rosuvastatin, 10 mg, oral, Nightly sennosides, 2 tablet, oral, BID vancomycin, 1,250 mg, intravenous, q24h venlafaxine XR, 75 mg, oral, Daily Continuous medications PRN medications PRN medications: acetaminophen, alteplase, dextrose, dextrose, glucagon, HYDROmorphone, ipratropium-albuteroL, oxyCODONE, oxyCODONE, vancomycin Assessment & Plan Daryn Shah is a 77 y.o. female w/ PMHx of Afib (on Xeralto), COPD (?), DMII (A1c 7.2% 03/01) on day 8 of admission as a transfer from [facility] to [facility] for evaluation of back pain likely from osteomyelitis/discitis and work up of newly found multiple large lung nodules, c/f metastatic disease. MRI thoracic spine concerning for T6-T8 abnormal signaling suggestive of discitis / osteomyelitis, small abscess at T1 and epidural enhancement extending from T6-T9 suggestive of phlegmon. Status post OR 11/13 for T5-9 laminectomy for epidural abscess. Overall lower suspicion related to small pulmonary nodules. Patient had T7 vertebral body biopsy 11/12. All cultures all negative and final. Patient HDS, and on RA. Pain controlled. Started on Vanc + Zosyn and continuing per ID recs, PICC line placed for maintenance. #Discitis, unspecified, thoracic region #T6-T8 C/f Discitis/Osteomyelitis #Phlegmon T6-T9 #Back Pain S/p T5-T9 laminectomy 11/13, pain well controlled ID following Final Bcx no growth NSGY - -will follow up on drains -can restart xarelto on POD 10 per NSGY Principal Problem: #Discitis, unspecified, thoracic region - S/p T5-T9 laminectomy 11/13, pain well controlled - Final Bcx no growth, ID following Done: PICC line placed Plan: C/w Vanc and Ceftriaxone Follow up ID recs Follow up NSGY recs - managing drain and Prevena Follow up pathology Pain control w/ tylenol + oxy, bowel regimen Restart Xarelto on post-op day 10 per NSGY #Lung nodules - Noted on CT scan. Largest 1.0 x 1.1 cm Plan: Follow-up vertebral biopsy Consider outpatient PET scan/pulmonary follow-up #SIADH - Reportedly chronic problem. C/f paraneoplastic. - Na stable, can consider fluid restriction if down trending Plan: Monitor RFP Holding Maxide #Hypertension #Afib - c/w atenolol for rate control - c/w statin - Holding Xarelto, restart on post-op day 10 per NSGY - Holding Maxide and Lisinopril, can add lisinopril if Bps are not controlled #Hypomagnesemia/Hypokalemia Monitor RFP, replete as needed #DM II - A1c 7.2% - Home regimen: Dulaglutide 3 mg weekly injections - C/w SSI #2 - Hypoglycemia protocol #Anxiety and Depression - C/w Effexor - Outpatient psych follow up #COPD (?) Noted on chart review but pt denies history. Denies shortness of breath, cough and sputum production - Duonebs and Albuterol PRN - Incentive spirometry Fluids: PRN Electrolytes: PRN Nutrition: Adult diet Consistent Carb; CCD 75 gm/meal Access: PRN DVT prophylaxis: Lovenox subq Code Status: DNR and No Intubation (Confirmed on admission) Emergency Contact / NOK: Extended Emergency Contact Information Primary Emergency Contact: BEVERLY SHAH Address: [address] [place] [phone] [facility] Mobile Relation: Son Preferred language: [place] [employer] Clerk needed? No Secondary Emergency Contact: Rissa SHAH Address: [address] [place] [phone] [facility] Mobile Relation: Son Preferred language: [place] [employer] Clerk needed? No Thomas Hoffman MD, MSc Internal Medicine PGY-1 11/17/2023 Associated attestation - Sai Marie MD - 11/18/2023 1:18 PM EDT I saw and evaluated the patient. I personally obtained the pickering and critical portions of the historyand physical exam or was physically present for pickering and critical portions performed by the resident/fellow. I reviewed the resident/fellow's documentation and discussed the patient with the resident/gal moss. I agree with the resident/fellow's medical decision making as documented in the note with the exception/addition of the following: Looking at placement options . * Terry Lyons MD - 11/17/2023 9:23 AM EDT Daryn Shah is a 77 y.o. female on day 8 of admission presenting with Discitis, unspecified, thoracic region. Subjective Pain controlled Objective Physical Exam AOx3 RUE D4 (chronic) B5 T5 HG/IO 5 BLE 5/[address] Drain in place Last Recorded Vitals Blood pressure 92/68, pulse 73, temperature 36.6 C (97.9 F), resp. rate 18, height 1.702 m (5' 7.01), weight 94.6 kg (208 lb 8.9 oz), SpO2 99%. Intake/Output last 3 Shifts: I/O last 3 completed shifts: In: 1635 (17.3 mL/kg) [P.O.:480; IV Piggyback:1155] Out: 360 (3.8 mL/kg) [Urine:275 (0.1 mL/kg/hr); Drains:85] Weight: 94.6 kg Relevant Results Lab Results Component Value Date WBC 7.3 11/17/2023 HGB 9.1 (L) 11/17/2023 HCT 29.3 (L) 11/17/2023 MCV 85 11/17/2023 PLT 152 11/17/2023 Lab Results Component Value Date GLUCOSE 130 (H) 11/17/2023 CALCIUM 7.6 (L) 11/17/2023 NA 137 11/17/2023 K 4.0 11/17/2023 CO2 31 11/17/2023 CL 99 11/17/2023 BUN 14 11/17/2023 CREATININE 0.63 11/17/2023 Assessment/Plan Principal Problem: Discitis, unspecified, thoracic region Daryn is a 77 y.o. female with h/o Afib on Xarelto, HTN, HLD, T2DM, T2DM, SIADH, COPD, anxiety p/w back pain x 3wks, bedbound at baseline. MRI TS T6-9 discitis/OM, pre-vertebral phlegmon, CT CAP multiple R lung nodules 8/6 s/p IR guided T spine biopsy 8/7 s/p T5-9 lami for epidural abscess Plan: Naff primary Continue drain and prevena DNR/DNI Please encourage patient to be out of bed, work with PTOT Antibiotic management per ID and primary team Neurosurgery will continue to follow Terry Lyons MD * Kay Putnam RN - 11/16/2023 2:44 PM EDT 11/16/23 1442 Discharge Planning Living Arrangements Children Support Systems Children Assistance Needed per pt needs assistance with bringing items to her and getting into closet as doorways are not wide enough for a wheelchair Type of Residence Private residence Number of Stairs to Enter Residence 0 (wheelchair ramp outside) Number of Stairs Within Residence 0 Do you have animals or pets at home? Yes Type of Animals or Pets cat Who is requesting discharge planning? Provider Home or Post Acute Services Post acute facilities (Rehab/SNF/etc) Type of Post Acute Facility Services [facility] Expected Discharge Disposition SNF Does the patient need discharge transport arranged? Yes RoundTrip coordination needed? Yes Has discharge transport been arranged? No What day is the transport expected? 11/21/23 What time is the transport expected? 1500 Financial Resource Strain How hard is it for you to pay for the very basics like food, housing, medical care, and heating? Not hard Housing Stability In the last 12 months, was there a time when you were not able to pay the mortgage or rent on time?N In the past 12 months, how many times have you moved where you were living? 0 At any time in the past 12 months, were you homeless or living in a longterm (including now)? N Transportation Needs In the past 12 months, has lack of transportation kept you from medical appointments or from getting medications? no In the past 12 months, has lack of transportation kept you from meetings, work, or from getting things needed for daily living? No Patient Choice Provider Choice list and CMS website (https://medicare.gov/care-compare#search) for post-acute Quality and Resource Measure Data were provided and reviewed with: Patient Patient / Family choosing to utilize agency / facility established prior to hospitalization No Met with pt and introduced myself as adult caregiver and member of the Care Transitions team for discharge planning. Pt lives at home with her son Srinivas, recently . Pt stated although she has not ambulated x6 years (more so mental) she can complete ADL's from her wheelchair. She and son Srinivas usually cooks together (she can reach stove/microwave from wheelchair), and she prepares her own meds. Pt usually get groceries and other house hold items delivered from [employer]. Pt denies any falls. Pt stated she feels safe at home. Pt's address, phone number, and contact information was verified. Pt denies any social or financial concerns at this time. Home care: Yes Agency: [facility] [phone] Disciplines: Nurse came 1x to check vitals. DME: cane, walker, hospital bed. residence manager: none. PCP: Huan Mcdaniel MD Last appt: Pt does a lot of virtual visits Transport to appts: Son Eva provides (they have a wheelchair accessible van). Pharm: [facility] mail order (denies issues affording/obtaining medications) Discharge Planning: Pt s/p OR for laminectomy with Neurosurgery team, awaiting final IV abx recs however, team anticipate pt will discharge on 6 week course of IV abx with tentative stop date of 12/25. Pt stated she recently discharged AMA from [facility] (she was there x20 days) because her son could only pick her up on a Sunday, but her therapy was almost complete anyway. Pt stated she does not have a designated primary learner for home IV abx therapy + PT/OT is recommending moderate intensity therapy, therefore, she prefers SNF placement versus home PT/OT. Pt provided with SNF list for review but would like for referrals to be sent to the following SNF's: [facility] Referrals sent to above facilities via [facility] to see if they can accept. Precert will be requiredprior to discharge. casting coordinator will continue to follow for discharge planning needs. Kay Putnam RN Transitional Manager [employer]/[facility] [id number] * Ru Ortega MD - 11/16/2023 1:19 PM EDT Subjective Daryn Shah is a 77 y.o. female on hospital day 7 with no new events. Back pain overall controlled and tolerated. Objective Exam Vitals: 11/16/23 0459 11/16/23 0501 11/16/23 0758 11/16/23 1147 BP: 98/58 104/54 95/56 117/68 BP Location: Left arm Right arm Patient Position: Lying Lying Pulse: 77 68 73 83 Resp: 16 16 16 Temp: 36.7 C (98.1 F) 36.5 C (97.7 F) 36.4 C (97.5 F) TempSrc: Temporal SpO2: 97% 97% 94% 95% Weight: Height: Intake/Output last 3 shifts: I/O last 3 completed shifts: In: 2753 (29.1 mL/kg) [P.O.:360; I.V.:293 (3.1 mL/kg); IV Piggyback:2100] Out: 730 (7.7 mL/kg) [Urine:405 (0.1 mL/kg/hr); Drains:175; Blood:150] Weight: 94.6 kg Physical Exam Vitals reviewed. Constitutional: General: She is not in acute distress. Appearance: She is obese. She is not ill-appearing, toxic-appearing or diaphoretic. Comments: Very pleasant HENT: Head: Normocephalic and atraumatic. Cardiovascular: Rate and Rhythm: Normal rate. Rhythm irregular. Pulses: Normal pulses. Heart sounds: No murmur heard. No friction rub. No gallop. Pulmonary: Effort: Pulmonary effort is normal. Breath sounds: Normal breath sounds. No wheezing, rhonchi or rales. Abdominal: General: Bowel sounds are normal. There is no distension. Palpations: Abdomen is soft. Tenderness: There is no abdominal tenderness. There is no guarding or rebound. Musculoskeletal: Comments: Trace bilateral lower extremity edema with scarring from old wounds that are now well-healed and hyperpigmentation. Patient now with Prevena and drain into surgical bed Skin: General: Skin is warm and dry. Neurological: General: No focal deficit present. Mental Status: She is alert and oriented to person, place, and time. Psychiatric: Mood and Affect: Mood normal. Behavior: Behavior normal. Medications atenolol, 50 mg, oral, BID cefTRIAXone, 2 g, intravenous, q12h cholecalciferol, 2,000 Units, oral, Daily cyclobenzaprine, 5 mg, oral, TID enoxaparin, 40 mg, subcutaneous, q24h insulin lispro, 0-10 Units, subcutaneous, Before meals & nightly nystatin, 1 Application, Topical, BID piperacillin-tazobactam, 3.375 g, intravenous, q6h polyethylene glycol, 34 g, oral, BID [Held by provider] rivaroxaban, 20 mg, oral, Daily rosuvastatin, 10 mg, oral, Nightly sennosides, 2 tablet, oral, BID vancomycin, 1,250 mg, intravenous, q24h venlafaxine XR, 75 mg, oral, Daily PRN medications: acetaminophen, dextrose, dextrose, glucagon, HYDROmorphone, ipratropium-albuteroL,oxyCODONE, oxyCODONE, vancomycin Labs All new labs reviewed: some of the basic labs as follows - Results from last 7 days Lab Units 11/15/23 1533 11/14/23 0636 11/12/23 0757 11/11/23 0746 WBC AUTO x10*3/uL 10.9 6.4 7.3 6.5 HEMOGLOBIN g/dL 9.8* 10.5* 10.8* 10.6* HEMATOCRIT % 31.4* 34.8* 33.7* 33.4* PLATELETS AUTO x10*3/uL 234 190 223 219 NEUTROS PCT AUTO % -- -- 43.9 50.8 LYMPHS PCT AUTO % -- -- 43.9 37.4 MONOS PCT AUTO % -- -- 9.0 8.7 EOS PCT AUTO % -- -- 2.1 2.3 Results from last 72 hours Lab Units 11/14/23 0636 INR 1.1 APTT seconds 34 Results from last 72 hours Lab Units 11/15/23 1533 11/14/23 0636 SODIUM mmol/L 135* 138 POTASSIUM mmol/L 3.8 3.4* CHLORIDE mmol/L 96* 96* CO2 mmol/L 29 35* BUN mg/dL 20 16 CREATININE mg/dL 0.95 0.97 Results from last 72 hours Lab Units 11/15/23 1533 11/14/23 0636 ALBUMIN g/dL 2.6* 2.7* Results from last 72 hours Lab Units 11/15/23 1533 11/14/23 0636 GLUCOSE mg/dL 183* 110* Results from last 72 hours Lab Units 11/13/23 1743 LEUKOCYTES U NEGATIVE NITRITE U NEGATIVE WBC UR /HPF 1-5 RBC UR HPF /HPF 1-2 BLOOD UR NEGATIVE No results found for: TR1 Lab Results Component Value Date URINECULTURE (A) 11/06/2023 Multiple organisms present, probable contamination. Repeat culture if clinically indicated. BLOODCULT No growth at 4 days - FINAL REPORT 11/09/2023 BLOODCULT No growth at 4 days - FINAL REPORT 11/09/2023 BLOODCULT No growth at 4 days - FINAL REPORT 11/06/2023 BLOODCULT No growth at 4 days - FINAL REPORT 11/06/2023 Imaging ECG 12 Lead Atrial fibrillation Left axis deviation Low voltage QRS Cannot rule out Anterior infarct , age undetermined Abnormal ECG Confirmed by Fabio Bee ([id number]) on 11/15/2023 2:34:28 PM No results found for this or any previous visit from the past 1095 days. Encounter Date: 11/09/23 ECG 12 Lead Result Value Ventricular Rate 73 Atrial Rate 73 MA Interval 196 QRS Duration 106 QT Interval 384 QTC Calculation(Bazett) 423 P Critz -24 R Critz -46 T Critz -41 QRS Count 12 Q Onset 205 P Onset 107 P Offset 148 T Offset 397 QTC Fredericia 410 Narrative Atrial fibrillation Left axis deviation Low voltage QRS Cannot rule out Anterior infarct , age undetermined Abnormal ECG Confirmed by Fabio Bee ([id number]) on 11/15/2023 2:34:28 PM Assessment and Plan Back pain: Appears consistent with vertebral osteomyelitis/discitis. Patient status post OR 11/13 forT5-9 laminectomy for epidural abscess. Overall lower suspicion related to small pulmonary nodules. Patient had T7 vertebral body biopsy 11/12. All cultures all negative and final -Continue vancomycin and change Zosyn to ceftriaxone. Monitor Vanco per protocol -Follow-up neurosurgery recommendation. Surgery to manage drain and Prevena -Follow-up infectious disease recommendations. Assistance is greatly appreciated -Will ask for CBC, CMP, bank trough, CRP to be drawn weekly and faxed to Dr. Osorio with outpatientID follow-up -Pain control/bowel care -Continue to work with physical therapy/Occupational Therapy -Monitor PVR -Will have PICC line placed for anticipated 6 weeks antibiotics SIADH: Reportedly chronic issue. -Monitor renal function. Cardiovascular: Hypertension and A-fib. -Continue atenolol -Continue statin -Hold Xarelto for now. Tentatively resume on postop date 10 -Holding lisinopril at this time. May be able to resume lisinopril as blood pressure dictates. Lung nodules: -Follow-up vertebral biopsy -Consider outpatient PET scan/pulmonary follow-up Hypomagnesemia/hypokalemia: -Repeat RFP. -Replete magnesium COPD: Patient denies having ever had COPD or taking inhalers. Doing well on room air -Continue to monitor -Incentive spirometry Diabetes mellitus: Patient required 2 units sliding scale yesterday -Continue sliding scale insulin -Diabetic diet Psychiatry: -Continue Effexor DVT prophylaxis Physical therapy/Occupational Therapy when appropriate Patient is looking into SNF placement. Will likely be ready to go when drain is removed by neurosurgery. Will determine with neurosurgery fate of the Prevena Ru Ortega MD Of note the above was done with Muluation system. Note was proofread to minimize errors. * Linda Grace, PharmD - 11/16/2023 12:54 PM EDT Vancomycin Dosing by Pharmacy- FOLLOW UP Daryn Shah is a 77 y.o. year old female who Pharmacy has been consulted for vancomycin dosing for osteomyelitis/septic arthritis. Based on the patient's indication and renal status this patient is being dosed based on a goal AUC of 400-600. ID has recommended 6 week duration. Also on ceftriaxone 2g q12 starting tonight (de-escalated from zosyn per ID recs) Renal function is currently stable. Current vancomycin dose: 1250 mg given every 24 hours Estimated vancomycin AUC on current dose: 531 mg/L.hr Visit Vitals BP 117/68 Pulse 83 Temp 36.4 C (97.5 F) Resp 16 Lab Results Component Value Date CREATININE 0.95 11/15/2023 CREATININE 0.97 11/14/2023 CREATININE 0.75 11/12/2023 CREATININE 0.79 11/11/2023 Patient weight is as follows: Vitals: 11/09/23 0230 Weight: 94.6 kg (208 lb 8.9 oz) Cultures: 11/12 and 11/13 prelim tissue cx NGTD I/O last 3 completed shifts: In: 2753 (29.1 mL/kg) [P.O.:360; I.V.:293 (3.1 mL/kg); IV Piggyback:2100] Out: 730 (7.7 mL/kg) [Urine:405 (0.1 mL/kg/hr); Drains:175; Blood:150] Weight: 94.6 kg I/O during current shift: I/O this shift: In: - Out: 150 [Urine:150] Temp (24hrs), Av.6 C (97.8 F), Min:36.4 C (97.5 F), Max:36.7 C (98.1 F) Assessment/Plan Within goal AUC range. Continue current vancomycin regimen. This dosing regimen is predicted by [employer] to result in the following pharmacokinetic parameters: AUC24,ss: 531 mg/L.hr Probability of AUC24 > 400: 100 % Ctrough,ss: 17 mg/L Probability of Ctrough,ss > 20: 7 % Probability of nephrotoxicity (Lodise GIANNA 2008): 13 % The next level will be obtained on 11/18 at AM labs. May be obtained sooner if clinically indicated. Will continue to monitor renal function daily while on vancomycin and order serum creatinine at least every 48 hours if not already ordered. Follow for continued vancomycin needs, clinical response, and signs/symptoms of toxicity. Linda Grace PharmD * Terry Lyons MD - 11/16/2023 7:51 AM EDT Daryn Shah is a 77 y.o. female on day 7 of admission presenting with Discitis, unspecified, thoracic region. Subjective Pain controlled Objective Physical Exam AOx3 RUE D4 (chronic) B5 T5 HG/IO 5 BLE 5/[address] in [address] Drain in place Last Recorded Vitals Blood pressure 104/54, pulse 68, temperature 36.7 C (98.1 F), temperature source Temporal, resp. rate 16, height 1.702 m (5' 7.01), weight 94.6 kg (208 lb 8.9 oz), SpO2 97%. Intake/Output last 3 Shifts: I/O last 3 completed shifts: In: 2753 (29.1 mL/kg) [P.O.:360; I.V.:293 (3.1 mL/kg); IV Piggyback:2100] Out: 730 (7.7 mL/kg) [Urine:405 (0.1 mL/kg/hr); Drains:175; Blood:150] Weight: 94.6 kg Relevant Results Lab Results Component Value Date WBC 10.9 11/15/2023 HGB 9.8 (L) 11/15/2023 HCT 31.4 (L) 11/15/2023 MCV 86 11/15/2023 PLT 234 11/15/2023 Lab Results Component Value Date GLUCOSE 183 (H) 11/15/2023 CALCIUM 8.1 (L) 11/15/2023 NA 135 (L) 11/15/2023 K 3.8 11/15/2023 CO2 29 11/15/2023 CL 96 (L) 11/15/2023 BUN 20 11/15/2023 CREATININE 0.95 11/15/2023 Assessment/Plan Principal Problem: Discitis, unspecified, thoracic region Daryn is a 77 y.o. female with h/o Afib on Xarelto, HTN, HLD, T2DM, T2DM, SIADH, COPD, anxiety p/w back pain x 3wks, bedbound at baseline. MRI TS T6-9 discitis/OM, pre-vertebral phlegmon, CT CAP multiple R lung nodules / s/p IR guided T spine biopsy / s/p T5-9 lami for epidural abscess Plan: Naff primary Continue drain and prevena DNR/DNI Please encourage patient to be out of bed, work with PTOT Antibiotic management per ID and primary team Neurosurgery will continue to follow peripherally Terry Lyons MD * Megan Osorio, DO - 11/15/2023 8:55 PM EDT Daryn Shah is a 77 y.o. female on day 6 of admission presenting with Discitis, unspecified, thoracic region. Subjective Interval History: doing well post op, in good spirits. Agreeable to abx plan Review of Systems Objective Range of Vitals (last 24 hours) Heart Rate: [57-100] Temp: [36 C (96.8 F)-36.7 C (98.1 F)] Resp: [13-20] BP: (112-135)/(62-90) SpO2: [92 %-99 %] Daily Weight 11/09/23 : 94.6 kg (208 lb 8.9 oz) Body mass index is 32.66 kg/m . Physical Exam Comfortable appearing, NAD Lungs CTA anteriorly RRR, S1/S2, soft systolic murmur Abd soft, nontender Antibiotics piperacillin-tazobactam - 3.375 gram/50 mL vancomycin - 1250 mg/250 mL Relevant Results Labs Results from last 72 hours Lab Units 11/15/23 1533 11/14/23 0636 WBC AUTO x10*3/uL 10.9 6.4 HEMOGLOBIN g/dL 9.8* 10.5* HEMATOCRIT % 31.4* 34.8* PLATELETS AUTO x10*3/uL 234 190 Results from last 72 hours Lab Units 11/15/23 1533 11/14/23 0636 SODIUM mmol/L 135* 138 POTASSIUM mmol/L 3.8 3.4* CHLORIDE mmol/L 96* 96* CO2 mmol/L 29 35* BUN mg/dL 20 16 CREATININE mg/dL 0.95 0.97 GLUCOSE mg/dL 183* 110* CALCIUM mg/dL 8.1* 8.9 ANION GAP mmol/L 14 10 EGFR mL/min/1.73m*2 63 61 PHOSPHORUS mg/dL 3.1 3.3 Results from last 72 hours Lab Units 11/15/23 1533 11/14/23 0636 ALBUMIN g/dL 2.6* 2.7* Estimated Creatinine Clearance: 60.4 mL/min (by C-G formula based on SCr of 0.95 mg/dL). C-Reactive Protein Date Value Ref Range Status 11/08/2023 4.29 (H) <1.00 mg/dL Final CRP Date Value Ref Range Status 09/09/2022 29.42 (A) mg/dL Final Comment: REF VALUE < 1.00 Microbiology 11/05 blood cx neg 11/08 blood cx neg 11/12 IR bx NG 11/13 intra-op cx pending Imaging T-spine MRI IMPRESSION: There is abnormal signal within the disc spaces at T6-T7 and T7-T8 as well as abnormal signal throughout the T6 and T7 vertebral bodies and the majority of the T8 vertebral body suggesting discitis osteomyelitis at these levels. There is prevertebral and paraspinal infiltration with multiple subcentimeter T1 hypointense and rim enhancing collections within the paraspinal soft tissues suggesting small abscesses. There is greater than expected enhancement within the epidural space extending from T6 through T9 suggesting phlegmon. This results in severe spinal canal stenosis at these levels. Question subtle increased cord signal on the STIR sequence. Assessment/Plan Connie Shah is a 77 y/o woman w/ hx Afib, transferred from OSH for acute onset worsening back pain and imaging consistent w/ thoracic discitis/OM as well as small abscesses +/- phlegmon. On vanc and pip-tazo, s/p IR biopsy 11/12 and T5-9 laminectomy for epidural abscess. #Thoracic OM w/ epidural abscess, s/p T5-9 laminectomy Recommendations: -Cont IV vanc, dosed w/ pharmacy -Can change pip-tazo to IV ceftriaxone 2gm q12H -Will require 6 weeks of the above abx, through 12/25 - Please obtain CBC, CMP, vanc trough, CRP weekly and fax results to [phone] ATTN: Dr. Osorio - Will arrange outpt ID follow up Will follow peripherally for final OR cultures, please reach out w/ questions and when pt is ready for discharge Megan Osorio DO Epic Chat or pager [phone] * Hayley Meléndez, CONE EXAMINER - 11/15/2023 3:01 PM EDT Recreation Therapy Note Therapy Session Visit Type: New visit Session Start Time: 1235 Session End Time: 1250 Intervention Delivery: In-person Conflict of Service: None Number of family members present: 0 Family Present for Session: None Family Participation: None Number of staff members present: 1 Pre-assessment Unable to Assess Reason: Outcomes not applicable Mood/Affect: Appropriate, Calm Verbalized Emotional State: (none noted) Treatment Areas of Focus: Coping, Socialization, Self-expression, Normalization, Stress reduction Co-Treatment: (none) Interruption: No Patient Fell Asleep at End of Session: No Post-assessment Total Session Time (min): 15 minutes Narrative Assessment Detail: Patient was in bed upon approach and was agreeable to engaging in a recreationaltherapy session. Plan: To encourage the exploration of safe and effective positive leisure coping skills to manage situational stressors. Intervention: Patient chose to make a bracelet. Evaluation: Patient was invested and social throughout the session. Needed some assistance in making her bracelet due to being sore from surgery. Pleasant and initiated conversation throughout the session. Follow-up: Will continue to encourage the exploration of positive leisure coping skills. Patient Comments: None noted. History of Present Illness: Daryn is a 77 y.o. female with h/o Afib on Xarelto, HTN, HLD, T2DM, T2DM, SIADH, COPD, anxiety p/w back pain x 3wks, bedbound at baseline. Patient denies trauma, injection, prior spine surgery. She reports chronic LLE pain since she can remember. She is bedbound at baseline, son is primary caregiver. She takes Xarelto which she last took 8/1AM. Denies fever, chills, dizziness, confusion, headache, double vision, blurry vision, n/v, numbness, weakness, tingling. * Ru Ortega MD - 11/15/2023 12:35 PM EDT Subjective Daryn Shah is a 77 y.o. female on hospital day 6 with no new events. Back pain overall controlled and tolerated. Patient does complain of some discomfort when she urinates with Boss catheter inplace Objective Exam Vitals: 11/14/23 2358 11/15/23 0523 11/15/23 0740 11/15/23 1146 BP: 127/83 123/84 120/83 115/71 Pulse: 74 79 84 87 Resp: 18 Temp: 36 C (96.8 F) 36.2 C (97.2 F) 36.5 C (97.7 F) 36.7 C (98.1 F) TempSrc: Temporal Temporal SpO2: 97% 93% 92% 93% Weight: Height: Intake/Output last 3 shifts: I/O last 3 completed shifts: In: 1793 (19 mL/kg) [I.V.:293 (3.1 mL/kg); IV Piggyback:1500] Out: 680 (7.2 mL/kg) [Urine:440 (0.1 mL/kg/hr); Drains:90; Blood:150] Weight: 94.6 kg Physical Exam Vitals reviewed. Constitutional: General: She is not in acute distress. Appearance: She is obese. She is not ill-appearing, toxic-appearing or diaphoretic. Comments: Very pleasant HENT: Head: Normocephalic and atraumatic. Cardiovascular: Rate and Rhythm: Normal rate. Rhythm irregular. Pulses: Normal pulses. Heart sounds: No murmur heard. No friction rub. No gallop. Pulmonary: Effort: Pulmonary effort is normal. Breath sounds: Normal breath sounds. No wheezing, rhonchi or rales. Abdominal: General: Bowel sounds are normal. There is no distension. Palpations: Abdomen is soft. Tenderness: There is no abdominal tenderness. There is no guarding or rebound. Musculoskeletal: Comments: Trace bilateral lower extremity edema with scarring from old wounds that are now well-healed and hyperpigmentation. Patient now with Prevena and drain into surgical bed Skin: General: Skin is warm and dry. Neurological: General: No focal deficit present. Mental Status: She is alert and oriented to person, place, and time. Psychiatric: Mood and Affect: Mood normal. Behavior: Behavior normal. Medications atenolol, 50 mg, oral, BID cholecalciferol, 2,000 Units, oral, Daily cyclobenzaprine, 5 mg, oral, TID [Held by provider] enoxaparin, 40 mg, subcutaneous, q24h insulin lispro, 0-10 Units, subcutaneous, Before meals & nightly piperacillin-tazobactam, 3.375 g, intravenous, q6h polyethylene glycol, 34 g, oral, BID [Held by provider] rivaroxaban, 20 mg, oral, Daily rosuvastatin, 10 mg, oral, Nightly sennosides, 2 tablet, oral, BID vancomycin, 1,250 mg, intravenous, q24h venlafaxine XR, 75 mg, oral, Daily PRN medications: acetaminophen, dextrose, dextrose, glucagon, HYDROmorphone, ipratropium-albuteroL,oxyCODONE, oxyCODONE, vancomycin Labs All new labs reviewed: some of the basic labs as follows - Results from last 7 days Lab Units 11/14/23 0636 11/12/23 0757 11/11/23 0746 11/09/23 0303 WBC AUTO x10*3/uL 6.4 7.3 6.5 8.8 HEMOGLOBIN g/dL 10.5* 10.8* 10.6* 10.8* HEMATOCRIT % 34.8* 33.7* 33.4* 34.5* PLATELETS AUTO x10*3/uL 190 223 219 263 NEUTROS PCT AUTO % -- 43.9 50.8 54.6 LYMPHS PCT AUTO % -- 43.9 37.4 34.8 MONOS PCT AUTO % -- 9.0 8.7 7.6 EOS PCT AUTO % -- 2.1 2.3 1.8 Results from last 72 hours Lab Units 11/14/23 0636 INR 1.1 APTT seconds 34 Results from last 72 hours Lab Units 11/14/23 0636 SODIUM mmol/L 138 POTASSIUM mmol/L 3.4* CHLORIDE mmol/L 96* CO2 mmol/L 35* BUN mg/dL 16 CREATININE mg/dL 0.97 Results from last 72 hours Lab Units 11/14/23 0636 ALBUMIN g/dL 2.7* Results from last 72 hours Lab Units 11/14/23 0636 GLUCOSE mg/dL 110* Results from last 72 hours Lab Units 11/13/23 1743 LEUKOCYTES U NEGATIVE NITRITE U NEGATIVE WBC UR /HPF 1-5 RBC UR HPF /HPF 1-2 BLOOD UR NEGATIVE No results found for: TR1 Lab Results Component Value Date URINECULTURE (A) 11/06/2023 Multiple organisms present, probable contamination. Repeat culture if clinically indicated. BLOODCULT No growth at 4 days - FINAL REPORT 11/09/2023 BLOODCULT No growth at 4 days - FINAL REPORT 11/09/2023 BLOODCULT No growth at 4 days - FINAL REPORT 11/06/2023 BLOODCULT No growth at 4 days - FINAL REPORT 11/06/2023 Imaging ECG 12 Lead Sinus rhythm with Premature supraventricular complexes Left axis deviation Low voltage QRS Cannot rule out Anterior infarct , age undetermined Abnormal ECG When compared with ECG of 06-NOV-2023 05:02, Significant changes have occurred No results found for this or any previous visit from the past 1095 days. Encounter Date: 11/09/23 ECG 12 Lead Result Value Ventricular Rate 73 Atrial Rate 73 MA Interval 196 QRS Duration 106 QT Interval 384 QTC Calculation(Bazett) 423 P Critz -24 R Critz -46 T Critz -41 QRS Count 12 Q Onset 205 P Onset 107 P Offset 148 T Offset 397 QTC Fredericia 410 Narrative Sinus rhythm with Premature supraventricular complexes Left axis deviation Low voltage QRS Cannot rule out Anterior infarct , age undetermined Abnormal ECG When compared with ECG of 06-NOV-2023 05:02, Significant changes have occurred Assessment and Plan Back pain: Appears consistent with vertebral osteomyelitis/discitis. Patient status post OR yesterday for T5-9 laminectomy for epidural abscess. Overall lower suspicion related to small pulmonary nodules. Patient had T7 vertebral body biopsy today by IR. Blood culture all negative and final -Follow-up biopsy cultures and pathology from IR and the OR -Continue vancomycin and Zosyn. Monitor Vanco per protocol -Follow-up neurosurgery recommendation. Surgery to manage drain and Prevena -Follow-up infectious disease recommendations. Assistance is greatly appreciated -Pain control/bowel care -Continue to work with physical therapy/Occupational Therapy -Plan for trial of void. Will send repeat UA and culture if has dysuria after a couple of voids still SIADH: Reportedly chronic issue. Doing well on last check -Monitor renal function. Today's is pending Cardiovascular: Hypertension and A-fib. -Continue atenolol -Continue statin -Hold Xarelto for now. Will discuss with neurosurgery when will be okay to resume. May have to do DVT prophylaxis for a few days prior to be able to start full dose anticoagulation -Holding lisinopril at this time. May be able to resume lisinopril as blood pressure dictates. Lung nodules: -Follow-up vertebral biopsy -Consider outpatient PET scan/pulmonary follow-up Hypomagnesemia/hypokalemia: -Repeat RFP. Today's is pending COPD: Patient denies having ever had COPD or taking inhalers. Doing well on room air -Continue to monitor -Incentive spirometry Diabetes mellitus: Patient required 0 units sliding scale yesterday -Continue sliding scale insulin -Diabetic diet Psychiatry: -Continue Effexor DVT prophylaxis Physical therapy/Occupational Therapy when appropriate Ru Ortega MD Of note the above was done with Muluation system. Note was proofread to minimize errors. * Loretta Matamoros, OT - 11/15/2023 12:12 PM EDT Occupational Therapy Re-Evaluation/Treatment Patient Name: Daryn Shah : 1945 Today's Date: 11/15/23 Time Calculation Start Time: 839 Stop Time: 902 Time Calculation (min): 23 min Assessment: Prognosis: Good Barriers to Discharge: None Evaluation/Treatment Tolerance: Patient limited by fatigue, Patient limited by pain Medical Staff Made Aware: Yes End of Session Communication: Bedside nurse End of Session Patient Position: Bed, 3 rail up, Alarm off, not on at start of session OT Assessment Results: Decreased ADL status, Decreased upper extremity strength, Decreased upper extremity range of motion, Decreased endurance Prognosis: Good Barriers to Discharge: None Evaluation/Treatment Tolerance: Patient limited by fatigue, Patient limited by pain Medical Staff Made Aware: Yes Strengths: Ability to acquire knowledge, Attitude of self, Support of Caregivers Barriers to Participation: Comorbidities Plan: Treatment Interventions: ADL retraining, Functional transfer training, Endurance training, Patient/family training, Equipment evaluation/education, Compensatory technique education OT Frequency: 3 times per week OT Discharge Recommendations: Moderate intensity level of continued care Equipment Recommended upon Discharge: (TBD) OT Recommended Transfer Status: Assist of 2 OT - OK to Discharge: (eval complete) Treatment Interventions: ADL retraining, Functional transfer training, Endurance training, Patient/family training, Equipment evaluation/education, Compensatory technique education Subjective Current Problem: 1. 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 Family/Caregiver Present: No Co-Treatment: PT Co-Treatment Reason: Co-evaluation with PT for pt safety and to optimize pt's therapeutic potential Prior to Session Communication: Bedside nurse Patient Position Received: Bed, 3 rail up, Alarm off, not on at start of session Preferred Learning Style: visual, verbal General Comment: Pt pleasant and agreeable to therapy Precautions: Medical Precautions: Fall precautions, Spinal precautions Post-Surgical Precautions: Spinal precautions Pain: Pain Assessment Pain Assessment: 0-10 0-10 (Numeric) Pain Score: 5 - Moderate pain Pain Type: Acute pain, Surgical pain Pain Location: Back Pain Orientation: Mid, Lower Pain Interventions: Repositioned (RN medicated pt shortly prior to session) Objective Cognition: Overall Cognitive Status: Within Functional Limits Arousal/Alertness: Appropriate responses to stimuli Orientation Level: Oriented X4 Following Commands: Follows one step commands without difficulty Safety Judgment: Good awareness of safety precautions Problem Solving: Assistance required to identify errors made Home Living: Type of Home: House Lives With: (son) Home Adaptive Equipment: Wheelchair-power, Hospital bed Home Layout: One level Home Access: Ramped entrance Bathroom Shower/Tub: (sponge bathes) Prior Function: Level of [place]: Independent with ADLs and functional transfers, Needs assistance with homemaking (Sponge bath at baseline. Uses a bedpan at baseline does not transfer to the toilet.) Receives Help From: Family ADL Assistance: Independent (sponge bathes) Homemaking Assistance: (son completes) Ambulatory Assistance: (pt reports non-ambulatory and has not stood in a long time. pt reports she slides to [employer] (not with board)) IADL History: ADL: Eating Assistance: (set-up) Grooming Assistance: Minimal Grooming Deficit: (seated oral care at EOB with set-up for opening items, anticipate min for hair care d/t limited overhead reach) Bathing Assistance: Moderate Bathing Deficit: (anticipated) UE Dressing Assistance: Moderate UE Dressing Deficit: (don/doff gown at bed level) LE Dressing Assistance: Total LE Dressing Deficit: Don/doff R sock, Don/doff L sock Toileting Assistance with Device: Total Toileting Deficit: (pt with boss, requires total A for bed level regine care) ADL Comments: Educated pt on spinal precautions pertaining to ADLs and functional activity, pt verbalized understanding Activity Tolerance: Endurance: Tolerates 10 - 20 min exercise with multiple rests Bed Mobility/Transfers: Bed Mobility Bed Mobility: Yes Bed Mobility 1 Bed Mobility 1: Supine to sitting, Sitting to supine, Log roll Level of Assistance 1: Moderate assistance, +2 Bed Mobility Comments 1: Lnot-os-wlch instructions provided for log rolling technique, with supportrequired at both trunk and BLEs with transition Bed Mobility 2 Bed Mobility 2: Scooting Level of Assistance 2: Maximum assistance Bed Mobility Comments 2: Educated pt on mechanics to laterally scoot toward HOB at EOB, however limited ability to weightshift Transfers Transfer: No (pt reports has not stood, declined transferring 2/2 pain) Sitting Balance: Static Sitting Balance Static Sitting-Balance Support: No upper extremity supported Static Sitting-Level of Assistance: Close supervision Dynamic Sitting Balance Dynamic Sitting-Balance Support: No upper extremity supported Dynamic Sitting-Comments: CGA Vision:Vision - Basic Assessment Current Vision: No visual deficits Sensation: Light Touch: No apparent deficits Strength: Strength Comments: Formal strength testing deferred 2/2 spinal precuations and increased pain, however generalized weakness noted Perception: Inattention/Neglect: Appears intact Initiation: Appears intact Motor Planning: Appears intact Perseveration: Not present Coordination: Movements are Fluid and Coordinated: Yes Hand Function: Hand Function Gross Grasp: Functional Coordination: Functional Extremities: RUE RUE : Exceptions to WFL RUE AROM (degrees) RUE AROM Comment: tolerates ~40 deg of shoulder flexion, limited by shoulder pain and LUE LUE: Within Functional Limits Outcome Measures: [facility] Daily Activity Putting on and taking off regular lower body clothing: Total Bathing (including washing, rinsing, drying): A lot Putting on and taking off regular upper body clothing: A lot Toileting, which includes using toilet, bedpan or urinal: Total Taking care of personal grooming such as brushing teeth: A little Eating Meals: A little Daily Activity - Total Score: 12 Brief Confusion Assessment Method (bCAM) Feature 1: Altered Mental Status or Fluctuating Course: No CAM Result: CAM - Education Documentation Body Mechanics, taught by Loretta Matamoros OT at 11/15/2023 12:11 PM. Learner: Patient Readiness: Acceptance Method: Explanation, Demonstration Response: Verbalizes Understanding, Demonstrated Understanding, Needs Reinforcement ADL Training, taught by Loretta Matamoros OT at 11/15/2023 12:11 PM. Learner: Patient Readiness: Acceptance Method: Explanation, Demonstration Response: Verbalizes Understanding, Demonstrated Understanding, Needs Reinforcement EDUCATION: Education Individual(s) Educated: Patient Education Provided: Diagnosis & Precautions, Fall precautons, Risk and benefits of OT discussedwith patient or other, POC discussed and agreed upon Patient Response to Education: Patient/Caregiver Verbalized Understanding of Information Goals: Encounter Problems Encounter Problems (Active) ADLs ADLs Patient with complete upper body dressing with stand by assist level of assistance donning and doffing all UE clothes with PRN adaptive equipment (Progressing) Start: 11/15/23 Expected End: 11/29/23 Patient with complete lower body dressing with minimal assist level of assistance donning and doffing all LE clothes with PRN adaptive equipment (Not Progressing) Start: 11/15/23 Expected End: 11/29/23 Patient will complete daily grooming tasks with set-up level of assistance and PRN adaptive equipment while edge of bed . (Progressing) Start: 11/15/23 Expected End: 11/29/23 Patient will complete toileting including hygiene clothing management/hygiene with minimal assist level of assistance. (Not Progressing) Start: 11/15/23 Expected End: 11/29/23 COGNITION/SAFETY Patient will recall and adhere to spinal precautions during all functional mobility/ADL tasks in order to demonstrate improved understanding and promote healing post op (Progressing) Start: 11/15/23 Expected End: 11/29/23 MOBILITY TRANSFERS TRANSFERS Patient will perform bed mobility minimal assist level of assistance in order to improve safety andindependence with mobility (Progressing) Start: 11/15/23 Expected End: 11/29/23 Patient will complete functional transfer to wheelchair/commode via slide board PRN with minimal assist level of assistance. (Not Progressing) Start: 11/15/23 Expected End: 11/29/23 * Sophie Trevino, PT - 11/15/2023 11:42 AM EDT Physical Therapy Physical Therapy Re-Evaluation & Treatment Patient Name: Daryn Shah Today's Date: 11/15/2023 Time Calculation Start Time: 839 Stop Time: 902 Time Calculation (min): 23 min Assessment/Plan PT Assessment PT Assessment Results: Decreased endurance, Impaired balance, Decreased mobility, Decreased strength Rehab Prognosis: Good End of Session Communication: Bedside nurse Assessment Comment: Re-eval complete s/p T5-9 lami for epidural abscess. Patient is non-ambulatory at baseline, uses power chair. Patient mod A x2 for bed mobility, updated dc rec to mod intensity. During session, pt expresses some negative emotions, RN notified. Pt interested in music, art, pet therapy, etc and RN notified of interes.t End of Session Patient Position: Bed, 3 rail up, Alarm off, not on at start of session IP OR SWING BED PT PLAN Inpatient or Swing Bed: Inpatient PT Plan Treatment/Interventions: Bed mobility, Transfer training, Gait training, Balance training, Neuromuscular re-education, Strengthening, Endurance training, Range of motion, Therapeutic activity, Therapeutic exercise PT Plan: Ongoing PT PT Frequency: 3 times per week PT Discharge Recommendations: Moderate intensity level of continued care PT - OK to Discharge: Yes (indicates PT eval complete and dc rec determined) Subjective General Visit Information: General Reason for Referral: re-eval s/p T5-9 lami for epidural abscess Past Medical History Relevant to Rehab: atrial fibrillation on rivaroxaban, DM2 not on insulin, non-ambulatory status with significant functional overlay 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 Co-Treatment: OT Co-Treatment Reason: maximize pt safety and function in low AMPAC score Prior to Session Communication: Bedside nurse Patient Position Received: Bed, 3 rail up General Comment: ptsupine in bed, RN cleared. cooperative Home Living: Home Living Type of Home: House Lives With: (son) Home Adaptive Equipment: Wheelchair-power Home Layout: One level Home Access: Ramped entrance Bathroom Shower/Tub: (sponge bathing) Prior Level of Function: Prior Function Per Pt/Caregiver Report Prior Function Comments: bedpan, spinge bathes, no toilet transfer. power chair and reports non-ambulatory for 6 years. does not stand- slides to wheelchair but not with board Precautions: Precautions Medical Precautions: Fall precautions Post-Surgical Precautions: Spinal precautions Objective Pain: Pain Assessment Pain Assessment: 0-10 0-10 (Numeric) Pain Score: 5 - Moderate pain Pain Type: Surgical pain Pain Location: Back Cognition: Cognition Overall Cognitive Status: Within Functional Limits Orientation Level: Oriented X4 General Assessments: Activity Tolerance Endurance: Tolerates 10 - 20 min exercise with multiple rests Sensation Light Touch: No apparent deficits Functional Assessments: Bed Mobility Bed Mobility: Yes Bed Mobility 1 Bed Mobility 1: Supine to sitting, Sitting to supine, Log roll Level of Assistance 1: Moderate assistance (x2) Bed Mobility Comments 1: edu on log roll, cues for sequencing Bed Mobility 2 Bed Mobility 2: Scooting Level of Assistance 2: Maximum assistance Bed Mobility Comments 2: lateral scoot along EOB Transfers Transfer: No Extremity/Trunk Assessments: RLE RLE : (3/5) LLE LLE : (3/5) Treatments: Therapeutic Exercise Therapeutic Exercise Performed: Yes Therapeutic Exercise Activity 1: sitting EOB ankle pumps, LAQs x10 bilateral LEs Therapeutic Activity Therapeutic Activity Performed: Yes Therapeutic Activity 1: pt sat EOB for 15 min Outcome Measures: [facility] Basic Mobility Turning from your back to your side while in a flat bed without using bedrails: A lot Moving from lying on your back to sitting on the side of a flat bed without using bedrails: A lot Moving to and from bed to chair (including a wheelchair): A lot Standing up from a chair using your arms (e.g. wheelchair or bedside chair): Total To walk in hospital room: Total Climbing 3-5 steps with railing: Total Basic Mobility - Total Score: 9 Encounter Problems Encounter Problems (Active) PT Transfers STG - Transfer from bed to chair SBA (Progressing) Start: 11/12/23 Expected End: 11/26/23 STG - Patient to transfer to and from sit to supine indep (Progressing) Start: 11/12/23 Expected End: 11/26/23 STG - Patient will roll indep (Progressing) Start: 11/12/23 Expected End: 11/26/23 STG - Patient will transfer sit to and from stand LRAD mod A (Progressing) Start: 11/12/23 Expected End: 11/26/23 Education Documentation Precautions, taught by Sophie Trevino PT at 11/15/2023 11:41 AM. Learner: Patient Readiness: Acceptance Method: Explanation Response: Verbalizes Understanding Comment: edu on spinal precautions and dc plan Mobility Training, taught by Sophie Trevino PT at 11/15/2023 11:41 AM. Learner: Patient Readiness: Acceptance Method: Explanation Response: Verbalizes Understanding Comment: edu on spinal precautions and dc plan Education Comments No comments found. * Terry Lyons MD - 11/15/2023 7:59 AM EDT Daryn Shah is a 77 y.o. female on day 6 of admission presenting with Discitis, unspecified, thoracic region. Subjective Pain controlled Objective Physical Exam AOx3 RUE D4 (chronic) B5 T5 HG/IO 5 BLE 5/[address] Drain in place Last Recorded Vitals Blood pressure 120/83, pulse 84, temperature 36.5 C (97.7 F), temperature source Temporal, resp. rate 19, height 1.702 m (5' 7.01), weight 94.6 kg (208 lb 8.9 oz), SpO2 92%. Intake/Output last 3 Shifts: I/O last 3 completed shifts: In: 1793 (19 mL/kg) [I.V.:293 (3.1 mL/kg); IV Piggyback:1500] Out: 680 (7.2 mL/kg) [Urine:440 (0.1 mL/kg/hr); Drains:90; Blood:150] Weight: 94.6 kg Relevant Results Lab Results Component Value Date WBC 6.4 11/14/2023 HGB 10.5 (L) 11/14/2023 HCT 34.8 (L) 11/14/2023 MCV 86 11/14/2023 PLT 190 11/14/2023 Lab Results Component Value Date GLUCOSE 110 (H) 11/14/2023 CALCIUM 8.9 11/14/2023 NA 138 11/14/2023 K 3.4 (L) 11/14/2023 CO2 35 (H) 11/14/2023 CL 96 (L) 11/14/2023 BUN 16 11/14/2023 CREATININE 0.97 11/14/2023 Assessment/Plan Principal Problem: Discitis, unspecified, thoracic region Daryn is a 77 y.o. female with h/o Afib on Xarelto, HTN, HLD, T2DM, T2DM, SIADH, COPD, anxiety p/w back pain x 3wks, bedbound at baseline. MRI TS T6-9 discitis/OM, pre-vertebral phlegmon, CT CAP multiple R lung nodules 8/ s/p IR guided T spine biopsy / s/p T5-9 lami for epidural abscess Plan: Naff primary Continue drain and prevena Needs DNR/DNI reinstated today Please encourage patient to be out of bed, work with PTOT Antibiotic management per ID and primary team Poss PET as OP, will follow up Rest per primary Terry Lyons MD * Kay Putnam RN - 11/14/2023 12:26 PM EDT Attempted to meet with pt this afternoon to complete assessment but she politely deferred to another date/time as she is awaiting surgery any moment now. Plan to attempt to meet with pt another time.casting coordinator will continue to follow for discharge planning needs. Kay Putnam RN Transitional Manager [employer] [id number] * Elias Pappas - 11/14/2023 10:27 AM EDT Daryn Shah is a 77 y.o. female on day 5 of admission presenting with Discitis, unspecified, thoracic region. Subjective NAEO Pain well controlled. Knows about surgery plan. Objective Last Recorded Vitals BP 121/67 Pulse 60 Temp 36.3 C (97.3 F) Resp 16 Wt 94.6 kg (208 lb 8.9 oz) SpO2 98% Intake/Output last 3 Shifts: Intake/Output Summary (Last 24 hours) at 11/14/2023 1027 Last data filed at 11/14/2023 0926 Gross per 24 hour Intake 250 ml Output 450 ml Net -200 ml Admission Weight Weight: 94.6 kg (208 lb 8.9 oz) (11/09/23 0045) Daily Weight 11/09/23 : 94.6 kg (208 lb 8.9 oz) Image Results CT guided percutaneous biopsy bone deep Narrative: Interpreted By: Caron Donaldson, and Gavi Anderson STUDY: CT-guided bone marrow biopsy; 11/13/2023 11:07 am INDICATION: Signs/Symptoms:Bone biopsy, 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 COMPARISON: MR thoracic spine and CT thoracic spine 11/06/2023. ACCESSION NUMBER(S): [id number] ORDERING CLINICIAN: RU ORTEGA TECHNIQUE: INTERVENTIONALIST(S): MD aGrett Chaudhari MD CONSENT: The patient was informed of the nature of the proposed procedure. The purposes, alternatives, risks, and benefits were explained and discussed. All questions were answered and consent was obtained. HISTORY: The history and physical exam pertinent to the procedure were reviewed and no updates were made. RADIATION EXPOSURE: Total dose length product (DLP): 702.1 mGy * cm SEDATION: Moderate conscious IV sedation services (supervision of administration, induction, and maintenance) were provided by the attending physician performing the procedure with intravenous fentanyl 100 mcg and Versed 2 mg for 20 minutes. The physician was assisted by an independent trained observer, an interventional radiology nurse, in the continuous monitoring of patient level of consciousness and physiologic status. MEDICATION/CONTRAST: No additional. TIME OUT: A time out was performed immediately prior to procedure start with the interventional team, correctly identifying the patient name, date of , medical record number, procedure, anatomy (including marking of site and side), patient position, procedure consent form, relevant laboratory and imaging test results, safety precautions, and procedure-specific equipment needs. PROCEDURE: The patient was placed in left lateral decubitus position on the interventional CT scanner bed. An initial integrated logistics programs director image and axial noncontrast CT images of the pelvis were obtained. Imaging findings are discussed below. A posterior percutaneous transpedicular approach was chosen for biopsy of the T7 vertebral body. The skin site was marked, prepped, and draped in usual sterile fashion. Local anesthesia of the skin and deep tissues was administered with 1% lidocaine. An 11 gauge coaxial needle system was advanced to the T7 vertebral body and seated within the bone. A core biopsy was performed through the coaxial system using a powered 13 gauge biopsy needle (one core specimen obtained). The needles were removed and sterile dressing applied. Specimens were sent to surgical pathology as well as culture per requesting team. The patient tolerated the procedure well without evidence of immediate complication. The patient was then monitored in the radiology recovery area for approximately 1 hour prior to discharge. FINDINGS: Initial axial noncontrast CT images of the pelvis demonstrate no acute findings. Intraprocedural CT images demonstrate percutaneous biopsy of the iliac in progress as discussed above. Impression: Technically successful CT-guided biopsy of the T7 vertebra. Specimens were sent to pathology/laboratory per requesting team. I was present for the entirety of the procedure as detailed above. I personally reviewed the images/study and I agree with the findings as stated by Justin Gatica MD. This study was interpreted at [place], [place]. MACRO: None Signed by: Caron Donaldson 11/14/2023 8:11 AM Dictation workstation: [id number] XR chest 1 view Narrative: Interpreted By: Bunny Asher and [place] Lesley STUDY: XR CHEST 1 VIEW; 11/13/2023 11:11 pm INDICATION: Signs/Symptoms:preop. COMPARISON: CT chest abdomen pelvis 11/06/2023 ACCESSION NUMBER(S): [id number] ORDERING CLINICIAN: RU ORTEGA FINDINGS: AP upright radiograph of the chest was provided. CARDIOMEDIASTINAL SILHOUETTE: Cardiomediastinal silhouette is stable in size and configuration. LUNGS: No evidence of pulmonary edema. Mild retrocardiac atelectasis and tenting of the left basilar pleura. No pneumothorax or pleural effusion. ABDOMEN: No remarkable upper abdominal findings. BONES: No acute osseous abnormality. 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 Impression: 1. No acute abnormality of the chest. 2. Mild retrocardiac and left basilar atelectasis. I personally reviewed the image(s)/study and resident interpretation as stated by Dr. Tiffanie Healy MD. I agree with the findings as stated. This study was interpreted at [facility], [place], [place]. MACRO: None Signed by: Bunny Asher 11/14/2023 7:48 AM Dictation workstation: [id number] Physical Exam BP 121/67 Pulse 60 Temp 36.3 C (97.3 F) Resp 16 Ht 1.702 m (5' 7.01) Wt 94.6 kg (208 lb 8.9 oz) SpO2 98% BMI 32.66 kg/m General: in NAD, pleasant and cooperative Cardio: RRR, no murmurs Lungs: CTAB Abdomen: soft, nontender, non distended LE: no edema MSK: no midline spinal tenderness, no paraspinal tenderness Neuro: Aox4, CNII-XII intact Assessment/Plan Daryn Shah is a 77 y.o. female Ms Shah is a 77 y.o F w/ PMHx of Afib (on Xeralto), COPD (?), DMII (A1c 7.2% 03/01) on day 2 of admission as a transfer from [facility] to [facility] for evaluation of back pain likely from osteomyelitis/discitis and work up of newly found multiple large lung nodules c/f metastatic disease. MRI thoracic spine concerning for T6-T8 abnormal signaling suggestive of discitis/osteomyelitis, small abscess at T1 and epidural enhancement extending from T6-T9 suggestive of phlegmon. Patient HDS, and on RA. Started on Vanc + Zosyn and continuing per ID recs. 11/13 updates OR today 11/13 for T6-9 laminectomy w Neurosurgery #Discitis, unspecified, thoracic region #T6-T8 C/f Discitis/Osteomyelitis #Phlegmon T6-T9 #Back Pain S/p biopsy Evaluated by ID who agree with abx and biopsy Final Bcx no growth Pain controlled on oxy 5 Plan: -Continue w Vanc and Zosyn -Follow up cultures and path from biopsy -Pain control with oxy, will optimize bowel regimen #SIADH - Chronic problem. C/f paraneoplastic. - Na stable, can consider fluid restriction if down trending Plan: Monitor RFP Holding Maxide #Hypertension #Afib - c/w atenolol for rate control - c/w statin - holding Xarelto possible intervention - Holding Maxide and Lisinopril, can add lisinopril if Bps are not controlled #DM II -A1c 7.2% -Home regimen: Dulaglutide 3 mg weekly injections, not on insulin -SSI #2 -Hypoglycemia protocol #Anxiety and Depression - c/w Effexor #COPD (?) Noted on chart review but pt denies history. Denies shortness of breath, cough and sputum production - Duonebs and Albuterol PRN - Incentive spirometry Elias Pappas, MS4 Associated attestation - Ru Ortega MD - 11/14/2023 12:45 PM EDT I saw and evaluated the patient. I personally obtained the pickering and critical portions of the historyand physical exam or was physically present for pickering and critical portions performed by the resident/student. I reviewed the resident/student's documentation and discussed the patient with the resident /student. I agree with the resident/student's medical decision making as documented in the note with the exception/addition of the following: Patient is doing well overall. Patient reports being a little anxious about surgery today. Labs reviewed Back pain: Appears consistent with vertebral osteomyelitis/discitis. Overall lower suspicion related to small pulmonary nodules. Patient had T7 vertebral body biopsy today by IR. Blood culture all negative and final -Follow-up biopsy cultures and pathology -Continue vancomycin and Zosyn. Monitor Vanco per protocol -Follow-up neurosurgery recommendation. Patient to go to the OR today for T6-9 laminectomy. Will follow postop recommendations. Patient was n.p.o. overnight -Follow-up infectious disease recommendations. Assistance is greatly appreciated -Pain control/bowel care SIADH: Reportedly chronic issue. Doing well -Monitor renal function. Cardiovascular: Hypertension and A-fib. -Continue atenolol -Continue statin -Hold Xarelto for now. Will discuss with neurosurgery when will be okay to resume. May have to do DVT prophylaxis for a few days prior to be able to start full dose anticoagulation -Holding lisinopril at this time. May be able to resume lisinopril as blood pressure dictates. Lung nodules: -Follow-up vertebral biopsy -Consider outpatient PET scan/pulmonary follow-up Hypomagnesemia/hypokalemia: -Repeat RFP COPD: Patient denies having ever had COPD or taking inhalers. Doing well on room air -Continue to monitor -Incentive spirometry Diabetes mellitus: Patient required 0 units sliding scale yesterday -Continue sliding scale insulin -Diabetic diet Psychiatry: -Continue Effexor DVT prophylaxis Physical therapy/Occupational Therapy when appropriate Ru Ortega MD Of note the above was done with [employer] system. Note was proofread to minimize errors. * Terry Lyons MD - 11/14/2023 7:17 AM EDT Daryn Shah is a 77 y.o. female on day 5 of admission presenting with Discitis, unspecified, thoracic region. Subjective No events overnight, anticipating surgery in AM Objective Physical Exam AOx3 RUE D4 (chronic) B5 T5 HG/IO 5 RLE HF5 KE5 DF/PF 5 LUE D5 B5 T5 HG/IO 5 LLE HF5 KE4 (chronic) DF/PF 5 SILT Last Recorded Vitals Blood pressure 111/56, pulse 57, temperature 36.2 C (97.2 F), resp. rate 16, height 1.702 m (5' 7.01), weight 94.6 kg (208 lb 8.9 oz), SpO2 96%. Intake/Output last 3 Shifts: I/O last 3 completed shifts: In: 200 (2.1 mL/kg) [I.V.:200 (2.1 mL/kg)] Out: 950 (10 mL/kg) [Urine:950 (0.3 mL/kg/hr)] Weight: 94.6 kg Relevant Results Lab Results Component Value Date WBC 7.3 11/12/2023 HGB 10.8 (L) 11/12/2023 HCT 33.7 (L) 11/12/2023 MCV 84 11/12/2023 PLT 223 11/12/2023 Lab Results Component Value Date GLUCOSE 118 (H) 11/12/2023 CALCIUM 8.8 11/12/2023 NA 136 11/12/2023 K 3.5 11/12/2023 CO2 34 (H) 11/12/2023 CL 95 (L) 11/12/2023 BUN 13 11/12/2023 CREATININE 0.75 11/12/2023 Assessment/Plan Principal Problem: Discitis, unspecified, thoracic region Daryn is a 77 y.o. female with h/o Afib on Xarelto, HTN, HLD, T2DM, T2DM, SIADH, COPD, anxiety p/w back pain x 3wks, bedbound at baseline. MRI TS T6-9 discitis/OM, pre-vertebral phlegmon, CT CAP multiple R lung nodules 11/12 s/p IR guided T spine biopsy Plan: [facility] primary OR today 11/13 for T6-9 laminectomy Code status reversed for OR, needs re-instated post op ID recs Cx, path Antibiotic management per ID and primary team Poss PET as OP, will follow up Rest per primary Terry Lyons MD * Elias Pappas - 11/13/2023 2:14 PM EDT Daryn Shah is a 77 y.o. female on day 4 of admission presenting with Discitis, unspecified, thoracic region. Subjective NAEO Pain 07/17 Objective Last Recorded Vitals BP (!) 125/91 Pulse 60 Temp 36.1 C (97 F) (Temporal) Resp 14 Wt 94.6 kg (208 lb 8.9 oz) SpO2 94% Intake/Output last 3 Shifts: Intake/Output Summary (Last 24 hours) at 11/13/2023 1414 Last data filed at 11/13/2023 1406 Gross per 24 hour Intake 250 ml Output 750 ml Net -500 ml Admission Weight Weight: 94.6 kg (208 lb 8.9 oz) (11/09/23 0045) Daily Weight 11/09/23 : 94.6 kg (208 lb 8.9 oz) Image Results ECG 12 lead Atrial fibrillation with premature ventricular or aberrantly conducted complexes Low voltage QRS Left anterior fascicular block ST & T wave abnormality, consider lateral ischemia Abnormal ECG When compared with ECG of 10-OCT-2023 01:16, No significant change was found See ED provider note for full interpretation and clinical correlation Confirmed by Sophie Florian ([id number]) on 11/06/2023 8:58:45 PM MR lumbar spine w and wo IV contrast Narrative: Interpreted By: Lynda Bal, STUDY: MRI of the lumbar spine without IV contrast; 11/06/2023 12:58 pm INDICATION: Signs/Symptoms:Abnormal thoracic CT scan, cancer staging. COMPARISON: None. ACCESSION NUMBER(S): [id number] ORDERING CLINICIAN: VERA HUANG TECHNIQUE: Sagittal and axial STIR and T1-weighted MRI images of the lumbar spine were acquired using a spondylolysis protocol. 20 mL Dotarem injected intravenously. Sagittal and axial T1 postcontrast images were performed. FINDINGS: For counting purposes the last lumbarized vertebral body is labeled L5. Alignment and vertebral body heights are maintained. Mild heterogeneous bone marrow signal without a focal lesion on the STIR sequence is nonspecific. T1 and T2 hyperintense lesion within the L4 vertebral body is compatible with a hemangioma. There is desiccated disc signal throughout the lower thoracic and lumbar spine. There is osseous fusion across the disc space at L4-L5. The conus terminates at L1. Paraspinal soft tissues are unremarkable. Fatty atrophy of the lower paraspinal muscles. Evaluation by level: T12-L1: Disc bulge and facet arthrosis. No spinal canal stenosis. Mild neural foraminal stenosis. L1-L2: Disc bulge and facet arthrosis. Mild spinal canal stenosis. Mild neural foraminal stenosis. L2-L3: Disc bulge, facet arthrosis and ligamentum flavum thickening. Moderate spinal canal stenosis, narrowing of the subarticular recess and [id number]-[id number] bilateral neural foraminal stenosis. L3-L4: Disc bulge, facet arthrosis and ligamentum flavum thickening. Severe spinal canal stenosis. Moderate bilateral neural foraminal stenosis. L4-L5: Disc bulge, facet arthrosis and ligamentum flavum thickening. Moderate to severe spinal canal and neural foraminal stenosis. L5-S1: Disc bulge and facet arthrosis. No spinal canal stenosis. Moderate bilateral neural foraminal stenosis. Impression: Multilevel degenerative disc disease and facet arthrosis most pronounced at L3-L4 with severe spinal canal and moderate bilateral neural foraminal stenosis. Mildly heterogeneous bone marrow signal is nonspecific. There is a hemangioma within the L4 vertebral body. Otherwise no focal lesion within the lumbar spine. I personally reviewed the images/study and I agree with the findings as stated. This study was interpreted at [place], [place]. MACRO: None Signed by: Lynda Bal 11/06/2023 1:29 PM Dictation workstation: [id number] MR thoracic spine w and wo IV contrast Narrative: Interpreted By: Lynda Bal, STUDY: MR THORACIC SPINE W AND WO IV CONTRAST; 11/06/2023 12:58 pm INDICATION: Signs/Symptoms:Abnormal thoracic CT scan, cancer staging. COMPARISON: None. ACCESSION NUMBER(S): [id number] ORDERING CLINICIAN: VERA HUANG TECHNIQUE: Sagittal T1, T2, STIR and axial T2 and T1 weighted MR images of the thoracic spine were obtained. FINDINGS: Counting was performed from the C2 vertebral body on the integrated logistics programs director image. Alignment: There is slightly exaggerated thoracic kyphosis. Alignment is otherwise maintained. Vertebrae/Intervertebral Discs: Vertebral body heights are maintained. There is diffuse T1 hypointense STIR hyperintense signal throughout the T6, T7 in the majority of the T8 vertebral bodies. The bone marrow is otherwise mildly heterogeneous without a focal lesion on the STIR sequence. There is increased signal within the disc spaces at T6-T7 and T7-T8 with irregularity of the endplates, T6-T7> T7-T8. Otherwise there is desiccated disc signal throughout the thoracic spine with mild degenerative endplate changes and ezji-cq-nkvmvlmx disc height loss. There is prevertebral infiltration extending from T6 through T8. There is paraspinal infiltration at T6 through T8. There are multiple small subcentimeter rim enhancing collections within the paraspinal soft tissues suggesting small at the T6 through T8 levels. There is greater than expected enhancement within the epidural space extending from T6 through T9 suggesting reactive change and or phlegmon. This results in severe spinal canal stenosis at T6 through T8. Cord: Questionable increased cord signal on the STIR sequence at T6 through T8. The thoracic cord is otherwise unremarkable. C7-T1 through T4-T5: Degenerative changes without significant spinal canal stenosis and varying degrees of mild neural foraminal narrowing. T5-T6: Degenerative changes and prominent posterior epidural fat results in moderate spinal canal and neural foraminal stenosis. At T6-T7 and T7-T8 there are degenerative changes as well as enhancement within the epidural space resulting in severe spinal canal stenosis. Moderate neural foraminal narrowing at T6-T7 and T7-T8. T8-T9: Degenerative changes with moderate to severe spinal canal and ukox-ya-nmxcoqqg bilateral neural foraminal stenosis. T9-T10, T10-T11: Degenerative changes without significant spinal canal or neural foraminal stenosis. T11-T12: Disc bulge, facet arthrosis and ligamentum flavum thickening. Moderate to severe spinal canal and neural foraminal stenosis. T12-L1: Disc bulge and facet arthrosis. No spinal canal stenosis. Mild neural foraminal stenosis. There is a subcentimeter T2 hyperintense nodule within the right thyroid lobe. Impression: There is abnormal signal within the disc spaces at T6-T7 and T7-T8 as well as abnormal signal throughout the T6 and T7 vertebral bodies and the majority of the T8 vertebral body suggesting discitis osteomyelitis at these levels. There is prevertebral and paraspinal infiltration with multiple subcentimeter T1 hypointense and rim enhancing collections within the paraspinal soft tissues suggesting small abscesses. There is greater than expected enhancement within the epidural space extending from T6 through T9 suggesting phlegmon. This results in severe spinal canal stenosis at these levels. Question subtle increased cord signal on the STIR sequence. MACRO: None Signed by: Lynda Bal 11/06/2023 1:24 PM Dictation workstation: [id number] MR cervical spine w and wo IV contrast Narrative: Interpreted By: Lynda Bal, STUDY: MR CERVICAL SPINE W AND WO IV CONTRAST; 11/06/2023 12:58 pm INDICATION: Signs/Symptoms:Abnormal CT thoracic spine, Cancer staging. COMPARISON: None. ACCESSION NUMBER(S): [id number] ORDERING CLINICIAN: VERA HUANG TECHNIQUE: Sagittal T1, T2, STIR, axial T1 and axial T2 weighted images were acquired through the cervical spine. FINDINGS: The examination is markedly degraded by patient motion artifact. Alignment: The vertebral alignment is within normal limits. Vertebrae/Intervertebral Discs: The vertebral bodies demonstrate expected height. The marrow signal is within normal limits given patient motion artifact. No focal edema is noted on the STIR sequence within the bone marrow. There is desiccated disc signal throughout the cervical spine. Varying degrees of atkq-wv-qwctkaoj disc height loss. Cord: Within the limitation of motion artifact no abnormal signal or enhancement within the cervical cord. C1-C2: The cervicomedullary junction appears unremarkable. No spinal canal stenosis. C2-C3: No spinal canal or neural foraminal stenosis. C3-C4: Disc osteophyte complex, uncovertebral joint hypertrophy and facet arthrosis. Mild spinal canal stenosis. Moderate bilateral neural foraminal stenosis. C4-C5: Disc osteophyte complex, uncovertebral joint hypertrophy and facet arthrosis. Moderate to severe spinal canal stenosis and moderate to severe bilateral neural foraminal stenosis. C5-C6: Disc osteophyte complex, uncovertebral joint hypertrophy and facet arthrosis. Moderate to severe spinal canal and neural foraminal stenosis. C6-C7: Disc osteophyte complex uncovertebral joint hypertrophy and facet arthrosis. Moderate spinal canal and neural foraminal stenosis. C7-T1: Disc osteophyte complex and uncovertebral joint hypertrophy. No spinal canal stenosis. Moderate bilateral neural foraminal stenosis. Prevertebral soft tissues are not thickened. Impression: The examination is moderately degraded by patient motion artifact. Within this limitation, no evidence of focal osseous metastatic disease. No definite abnormal signal or enhancement within the cervical cord. Multilevel degenerative changes as detailed above. MACRO: None Signed by: Lynda Bal 11/06/2023 1:10 PM Dictation workstation: [id number] CT chest abdomen pelvis wo IV contrast Narrative: STUDY: CT Chest, Abdomen, and Pelvis without IV Contrast; 11/06/2023, 0805 INDICATION: Abnormal thoracic spine CT. COMPARISON: CT thoracic 11/06/2023, XR chest 10/09/2023, CT abd 01/05/2020. ACCESSION NUMBER(S): [id number] ORDERING CLINICIAN: VERA HUANG TECHNIQUE: CT of the chest, abdomen, and pelvis was performed. Contiguous axial images were obtained at 3 mm slice thickness through the chest, abdomen, and pelvis. Coronal and sagittal reconstructions at 3 mm slice thickness were performed. No intravenous contrast was administered. FINDINGS: Please note that the evaluation of vessels, lymph nodes and organs is limited without intravenous contrast. There is minimal atelectasis in the left lower lobe of the lung. No consolidative infiltrate is noted. There are no pleural effusions. No filling defects are seen within the trachea or mainstem bronchi. Multiple nodules are visualized. The largest nodule is seen in the lingula abutting the vessels, measured at 1.1 x 1.0 cm(Series 3, Image 107). There is an adjacent nodule in the right middle lobe, measured at 7 x 7 mm(Series 3, Image 112). There is a 5 x 5 mm nodule in the lateral aspect of the right upper lobe(Series 3, Image 41). There is no evidence of a pneumothorax. Evaluation for hilar adenopathy is limited due to lack of IV contrast. Subcentimeter lymph nodes are seen in the mediastinum. There is no pericardial effusion. Coronary artery calcifications are present. There is no evidence of aneurysmal dilatation of the ascending aorta, aortic arch, or descending thoracic aorta. Degenerative changes are seen throughout the thoracic spine. There are prominent endplate changes seen at T6-7 and T7-8, suspicious for discitis/osteomyelitis. There is prominent prevertebral soft tissue swelling noted at these levels, suggestive of overlying phlegmonous changes. Evaluation for an abscess is limited due to lack of IV contrast. Evaluation of the abdominal viscera is suboptimal due to lack of IV contrast. No acute findings are seen within the unenhanced liver, spleen, pancreas, or adrenal glands. There is a nonobstructing 2 mm stone in the midpole of the left kidney. No hydronephrosis is noted. No bladder calculi are noted. No dilated loops of small bowel or colon are visualized. There is no evidence for free intraperitoneal air. The appendix is normal in appearance. No enlarged lymph nodes are seen within the pelvic sidewalls, iliac chains, or retroperitoneum. There is no evidence of aneurysmal dilatation of the abdominal aorta. No prominent edema is seen within the psoas musculature. Degenerative changes are seen throughout the lumbar spine. There are calcified uterine fibroids. Impression: CHEST: 1. Endplate changes involving T6-7 and T7-8, indicative of discitis/osteomyelitis. Prominent prevertebral soft tissue swelling noted, indicative of phlegmonous changes. Evaluation for an abscess is limited due to lack of IV contrast. 2. Multiple right lung nodules. The largest is measured at 1.1 x 1.0 cm in the right middle lobe. Malignancy cannot be excluded. Follow-up with PET CT scan is recommended. 3. Coronary artery calcifications. ABDOMEN/PELVIS: 1. Evaluation for an abscess is limited due to lack of IV contrast. 2. Left-sided nephrolithiasis, with no evidence of hydronephrosis. 3. Calcified uterine fibroids. Signed by Mychal Chavez MD CT thoracic spine wo IV contrast Narrative: STUDY: CT Thoracic Spine without IV Contrast; 11/06/2023 at 5:45 AM. INDICATION: Thoracic back pain. COMPARISON: None available. ACCESSION NUMBER(S): [id number] ORDERING CLINICIAN: SKINNY STEEL TECHNIQUE: CT of the thoracic spine was performed without intravenous or intrathecal contrast. Sagittal and coronal reconstructions were generated. Automated mA/kV exposure control was utilized and patient examination was performed in strict accordance with principles of ALARA. FINDINGS: What I see of the mediastinum demonstrates vascular calcifications of the great vessels and of the aortic arch without evidence of aneurysmal dilatation. Coronary artery calcifications are noted ---no gross evidence of pericardial effusion. The ascending aorta appears to be normal---- extensive vessel calcifications of the abdomen are noted. Esophageal bed appears to be normal. What I see of the adrenal glands and upper kidneys normal. There are some calcifications at the level of the left kidney measuring 2 to 3 mm that exist in a nonobstructive fashion with nephrolithiasis. Kidney atrophic changes are identified. Pancreatic bed shows fatty replacement of the pancreas ----the body of the pancreas appears to be somewhat bulbous in appearance. Recommend pancreatic CT examination with contrast The lung parenchyma is abnormal. There are scattered pulmonary nodules --- one exists in the right upper lobe measuring 0.52 cm seen on slice 172 of 729 ---a larger pulmonary nodules/lung mass exists on slice 450 / 279---this has spiculated margins measuring 1.03 cm. Some right lung scarring and fibrotic changes are identified. There is a small granuloma that exists in the right upper lobe on slice 347 of 729. Small pulmonary nodule in the left lower lobe seen on slice 479/ 729. Small granuloma in the right upper lobe measures 0.2 cm seen on slice 134 / 729. Not all of the lung parenchyma is included in our examination ---may want to correlate with full chest CT at some point. . No focal area of airspace disease. The alignment of the thoracic vertebral bodies is normal. Widespread degenerative disc changes. Various thoracic vertebral bodies demonstrate areas of low density scattered throughout the thoracic region. Cannot exclude metastatic thoracic spine lesions given this appearance. Small sclerotic focus also exists in the superior endplate of C7---- question small bone sclerotic metastasis vs. bone island. In addition to the extensive degenerative changes and osteophytes----- there appears to be dissolution and destructive changes involving the endplates of T6-7 and T7-8 with surrounding soft tissue edematous changes at this level. The endplates of T6 T7 T8 appear to be irregularly marginated and ill-defined. This is concerning for areas of discitis and again the soft tissue surrounding may also be inflammatory in origin. Consider bacterial infection/ atypical infection such as tuberculosis also would have to be considered. Correlate with fever, sedimentation rate etc. No distinct evidence of focal rib abnormality on our limited view of the ribs. Some of this abnormal presumed inflammatory soft tissue that envelopes T6-7 and 8 does appear to abut the posterior aspect of the descending aorta. No definite evidence of abnormal soft tissue density of the thoracic canal and certainly correlation with MRI is recommended to assess thecal sac and to better assess endplate destructive changes and surrounding soft tissue at T6,7,8. The MRI will also a evaluation of the multifocal small low-density lesions involving the thoracic spine. Spinous processes appear to be normal. No cheryle evidence of bony destructive change involving the pedicles at the present time. No loss of vertebral body height. Some areas of minimal vacuum phenomenon. The lower thoracic region demonstrates extensive DDD and DJD including vacuum phenomena. Impression: Extensive calcifications of the great vessels Nephrolithiasis suspected Cholecystitis changes Mild bulbous prominence of the body of the pancreas. Recommend CT of the Abdomen with contrast designed to look at the pancreas. Coronary artery calcifications Minimal basilar fibrotic changes of the lungs Multifocal pulmonary nodules of the lungs seen bilaterally in conjunction with granulomatous changes. Certainly could not exclude metastatic disease in the lungs. May want to correlate with a formal chest CT to assess the entire lung parenchyma and certainly correlate with malignancy history. 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 Quite nonspecific but cannot exclude metastatic lesions of the thoracic spine There is endplate destructive changes involving T6-7, T7-8 with some associated surrounding soft tissue concerning for inflammatory discitis with associated bone destructive changes and presumed osteomyelitis.Recommend MRI exam as the next step in the evaluation---no gross canal narrowing. I have discussed this with Skinny Bee at 11/06/2023 6:33AM Signed by Jai Johnson MD Physical Exam BP (!) 125/91 Pulse 60 Temp 36.1 C (97 F) (Temporal) Resp 14 Ht 1.702 m (5' 7.01) Wt 94.6 kg (208 lb 8.9 oz) SpO2 94% BMI 32.66 kg/m General: in NAD, pleasant and cooperative Cardio: RRR, no murmurs Lungs: CTAB Abdomen: soft, nontender, non distended LE: no edema MSK: no midline spinal tenderness, no paraspinal tenderness Neuro: Aox4, CNII-XII intact Assessment/Plan Daryn Shah is a 77 y.o. female Ms Shah is a 77 y.o F w/ PMHx of Afib (on Xeralto), COPD (?), DMII (A1c 7.2% 03/01) on day 2 of admission as a transfer from [facility] to [facility] for evaluation of back pain likely from osteomyelitis/discitis and work up of newly found multiple large lung nodules c/f metastatic disease. MRI thoracic spine concerning for T6-T8 abnormal signaling suggestive of discitis/osteomyelitis, small abscess at T1 and epidural enhancement extending from T6-T9 suggestive of phlegmon. Patient HDS, and on RA. Started on Vanc + Zosyn and continuing per ID recs. 11/12 updates -s/p biopsy of the T7 vertebral body -Notified that NSGY has possible plans to take pt to OR (on 11/13?) for possible decompression and fusion #Discitis, unspecified, thoracic region #T6-T8 C/f Discitis/Osteomyelitis #Phlegmon T6-T9 #Back Pain S/p biopsy Evaluated by ID who agree with abx and biopsy Final Bcx no growth Pain controlled on oxy 5 Possible plans for OR with NSGY for decompression and fusion. Will order CBC, RFP, Coag screen. Type and Screen this PM. Will hold anticoagulation. Patient's RCRI is 0 (class I risk) - 3.9% 30-day risk of , [place], or cardiac arrest Per patient and chart review, patient does not have history of ischemic heart disease, CHF, cerebrovascular disease, not on insulin, and Cr 0.75. Patient is not noting chest pain, dyspnea, dizziness/lightheadedness, new weakness. At baseline, patient is non-ambulatory for past 6 years (no clear etiology, per patient, depression playing a role but has never had any stroke or neurologic incidents) and independent in ADLs. Plan: -Vanc and Zosyn -Follow up cultures and path from biopsy -Pain control with oxy, will optimize bowel regimen #SIADH - Chronic problem. C/f paraneoplastic. - Na stable, can consider fluid restriction if down trending Plan: Monitor RFP Holding Maxide #Hypertension #Afib - c/w atenolol for rate control - c/w statin - holding Xarelto possible intervention - Holding Maxide and Lisinopril, can add lisinopril if Bps are not controlled #DM II -A1c 7.2% -Home regimen: Dulaglutide 3 mg weekly injections, not on insulin -SSI #2 -Hypoglycemia protocol #Anxiety and Depression - c/w Effexor #COPD (?) Noted on chart review but pt denies history. Denies shortness of breath, cough and sputum production - Duonebs and Albuterol PRN - Incentive spirometry Fluids: PRN Electrolytes: PRN Nutrition: Regular Access: PRN DVT prophylaxis: Lovenox, will hold tonight 11/13, possible OR tomorrow Elias Elyse, MS4 Associated attestation - Ru Ortega MD - 11/13/2023 3:58 PM EDT I saw and evaluated the patient. I personally obtained the pickering and critical portions of the historyand physical exam or was physically present for pickering and critical portions performed by the resident/student. I reviewed the resident/student's documentation and discussed the patient with the resident /student. I agree with the resident/student's medical decision making as documented in the note with the exception/addition of the following: Patient is doing well overall. Does continue to have same back pain. Had her vertebral biopsy whichwas rather unremarkable per patient Labs reviewed Back pain: Appears consistent with vertebral osteomyelitis/discitis. Overall lower suspicion related to small pulmonary nodules. Patient had T7 vertebral body biopsy today by IR. Blood culture all negative and final -Follow-up biopsy cultures and pathology -Continue vancomycin and Zosyn. Monitor Vanco per protocol -Follow-up neurosurgery recommendation. -Follow-up infectious disease recommendations. Assistance is greatly appreciated -Pain control/bowel care SIADH: Reportedly chronic issue. Doing well -Monitor renal function. Cardiovascular: Hypertension and A-fib. -Continue atenolol -Continue statin -Hold Xarelto in anticipation for now. -Holding lisinopril at this time. May be able to resume lisinopril as blood pressure dictates. Lung nodules: -Follow-up vertebral biopsy -Consider outpatient PET scan/pulmonary follow-up Hypomagnesemia/hypokalemia: -Repeat RFP COPD: Patient denies having ever had COPD or taking inhalers. Doing well on room air -Continue to monitor -Incentive spirometry Diabetes mellitus: Patient required 0 units sliding scale yesterday -Continue sliding scale insulin -Diabetic diet Psychiatry: -Continue Effexor DVT prophylaxis Physical therapy/Occupational Therapy when appropriate Ru Ortega MD Of note the above was done with [employer] dictation system. Note was proofread to minimize errors. * Raul Chaney, PharmD - 11/13/2023 12:54 PM EDT Vancomycin Dosing by Pharmacy- FOLLOW UP Daryn Shah is a 77 y.o. year old female who Pharmacy has been consulted for vancomycin dosing for osteomyelitis/septic arthritis. Based on the patient's indication and renal status this patient is being dosed based on a goal AUC of 400-600. Renal function is currently stable. Current vancomycin dose: 1250 mg given every 24 hours Estimated vancomycin AUC on current dose: 460 mg/L.hr Visit Vitals BP (!) 125/91 Pulse 60 Temp 36.1 C (97 F) (Temporal) Resp 14 Lab Results Component Value Date CREATININE 0.75 11/12/2023 CREATININE 0.79 11/11/2023 CREATININE 0.80 11/11/2023 CREATININE 0.80 11/09/2023 Patient weight is as follows: Vitals: 11/09/23 0230 Weight: 94.6 kg (208 lb 8.9 oz) Cultures: No results found for the encounter in last 14 days. I/O last 3 completed shifts: In: 550 (5.8 mL/kg) [I.V.:200 (2.1 mL/kg); IV Piggyback:350] Out: 1050 (11.1 mL/kg) [Urine:1050 (0.3 mL/kg/hr)] Weight: 94.6 kg I/O during current shift: I/O this shift: In: - Out: 250 [Urine:250] Temp (24hrs), Av.1 C (97 F), Min:35.8 C (96.4 F), Max:36.4 C (97.5 F) Assessment/Plan Within goal AUC range. Continue current vancomycin regimen. This dosing regimen is predicted by [employer] to result in the following pharmacokinetic parameters: Loading dose: N/A Regimen: 1250 mg IV every 24 hours. Start time: 12:36 on 11/13/2023 Exposure target: AUC24 (range)400-600 mg/L.hr AUC24,ss: 460 mg/L.hr Probability of AUC24 > 400: 94 % Ctrough,ss: 14.3 mg/L Probability of Ctrough,ss > 20: 0 % Probability of nephrotoxicity (Lodise GIANNA 2008): 9 % The next level will be obtained on 11/19 at AM labs. May be obtained sooner if clinically indicated. Will continue to monitor renal function daily while on vancomycin and order serum creatinine at least every 48 hours if not already ordered. Follow for continued vancomycin needs, clinical response, and signs/symptoms of toxicity. Raul Chaney PharmD * Terry Lyons MD - 11/13/2023 8:52 AM EDT Daryn Shah is a 77 y.o. female on day 4 of admission presenting with Discitis, unspecified, thoracic region. Subjective No events overnight Objective Physical Exam AOx3 RUE D4 (chronic) B5 T5 HG/IO 5 RLE HF5 KE5 DF/PF 5 LUE D5 B5 T5 HG/IO 5 LLE HF5 KE4 (chronic) DF/PF 5 SILT Last Recorded Vitals Blood pressure 119/77, pulse 67, temperature 36.1 C (97 F), temperature source Temporal, resp. rate16, height 1.702 m (5' 7.01), weight 94.6 kg (208 lb 8.9 oz), SpO2 97%. Intake/Output last 3 Shifts: I/O last 3 completed shifts: In: 550 (5.8 mL/kg) [I.V.:200 (2.1 mL/kg); IV Piggyback:350] Out: 1050 (11.1 mL/kg) [Urine:1050 (0.3 mL/kg/hr)] Weight: 94.6 kg Relevant Results Lab Results Component Value Date WBC 7.3 11/12/2023 HGB 10.8 (L) 11/12/2023 HCT 33.7 (L) 11/12/2023 MCV 84 11/12/2023 PLT 223 11/12/2023 Lab Results Component Value Date GLUCOSE 118 (H) 11/12/2023 CALCIUM 8.8 11/12/2023 NA 136 11/12/2023 K 3.5 11/12/2023 CO2 34 (H) 11/12/2023 CL 95 (L) 11/12/2023 BUN 13 11/12/2023 CREATININE 0.75 11/12/2023 Assessment/Plan Principal Problem: Discitis, unspecified, thoracic region Daryn is a 77 y.o. female with h/o Afib on Xarelto, HTN, HLD, T2DM, T2DM, SIADH, COPD, anxiety p/w back pain x 3wks, bedbound at baseline. MRI TS T6-9 discitis/OM, pre-vertebral phlegmon, CT CAP multiple R lung nodules Plan: Naff primary ID recs IR recs - bx, will follow up bx results Antibiotic management per ID and primary team Poss PET as OP, will follow up Ok for DVT ppx Rest per primary Terry Lyons MD * Alonzo Antony, OT - 11/12/2023 2:56 PM EDT Occupational Therapy Evaluation Patient Name: Daryn Shah Today's Date: 11/12/2023 Time Calculation Start Time: 1130 Stop Time: 1143 Time Calculation (min): 13 min Assessment IP OT Assessment OT Assessment: Impaired ADLs, bed mobility, and transfers. Prognosis: Good Barriers to Discharge: None Evaluation/Treatment Tolerance: Patient tolerated treatment well Medical Staff Made Aware: Yes End of Session Communication: Bedside nurse End of Session Patient Position: Bed, 3 rail up, Alarm off, not on at start of session Plan: Treatment Interventions: ADL retraining, Functional transfer training, Endurance training OT Frequency: 3 times per week OT Discharge Recommendations: Low intensity level of continued care OT Recommended Transfer Status: Minimal assist, Assist of 1 OT - OK to Discharge: Yes Subjective Current Problem: 1. Discitis, unspecified, thoracic region General: Reason for Referral: large pulmonary nodules, back pain. Past Medical History Relevant to Rehab: atrial fibrillation on rivaroxaban, DM2 not on insulin, non-ambulatory status with significant functional overlay 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 Prior to Session Communication: Bedside nurse Patient Position Received: Bed, 3 rail up Family/Caregiver Present: No Precautions: Medical Precautions: Fall precautions Pain: Pain Assessment Pain Assessment: 0-10 0-10 (Numeric) Pain Score: 5 - Moderate pain Pain Type: Acute pain Pain Location: Back Pain Interventions: Repositioned Objective Cognition: Overall Cognitive Status: Within Functional Limits Orientation Level: Oriented X4 Home Living: Lives With: (Son) Home Adaptive Equipment: Wheelchair-power Home Layout: One level Home Access: Ramped entrance Home Living Comments: Hospital bed Prior Function: Level of [place]: Independent with ADLs and functional transfers (Sponge bath at baseline. Uses a bedpan at baseline does not transfer to the toilet.) Ambulatory Assistance: (does not ambulate at baseline lateral scoots to her w/c at baseline.) Hand Dominance: Right ADL: Eating Assistance: Stand by (anticipate) Eating Deficit: Setup Grooming Assistance: Stand by (anticipate) UE Dressing Assistance: Stand by UE Dressing Deficit: Setup (anticipate) Activity Tolerance: Endurance: Endurance does not limit participation in activity Balance: Dynamic Sitting Balance Dynamic Sitting-Balance Support: Bilateral upper extremity supported Dynamic Sitting-Balance: (SBA) Static Sitting Balance Static Sitting-Balance Support: No upper extremity supported Static Sitting-Level of Assistance: Close supervision Bed Mobility/Transfers: Bed Mobility Bed Mobility: Yes Bed Mobility 1 Bed Mobility 1: Supine to sitting Level of Assistance 1: Contact guard Bed Mobility 2 Bed Mobility 2: Sitting to supine Level of Assistance 2: Contact guard Bed Mobility Comments 2: HOB slightly elevated. Vision: Vision - Basic Assessment Current Vision: No visual deficits and Vision - Complex Assessment Ocular Range of Motion: Within Functional Limits Sensation: Light Touch: No apparent deficits Coordination: Movements are Fluid and Coordinated: Yes Hand Function: Hand Function Gross Grasp: Functional Coordination: Functional Extremities: RUE RUE : Within Functional Limits, LUE LUE: Within Functional Limits, , and Outcome Measures: [facility] Daily Activity Putting on and taking off regular lower body clothing: A lot Bathing (including washing, rinsing, drying): A little Putting on and taking off regular upper body clothing: A little Toileting, which includes using toilet, bedpan or urinal: A lot Taking care of personal grooming such as brushing teeth: A little Eating Meals: A little Daily Activity - Total Score: 16 , OT Adult Other Outcome Measures 4AT: negative Education Documentation Body Mechanics, taught by Alonzo Antony OT at 11/12/2023 2:51 PM. Learner: Patient Readiness: Eager Method: Explanation Response: Verbalizes Understanding ADL Training, taught by Alonzo Antony OT at 11/12/2023 2:51 PM. Learner: Patient Readiness: Eager Method: Explanation Response: Verbalizes Understanding Education Comments No comments found. Goals: Encounter Problems Encounter Problems (Active) ADLs Patient will perform UB and LB bathing with set-up and supervision level of assistance and grab bars. (Progressing) Start: 11/12/23 Expected End: 12/03/23 Patient with complete lower body dressing with set-up and supervision level of assistance donning and doffing all LE clothes with PRN adaptive equipment while supine in bed and edge of bed (Progressing) Start: 11/12/23 Expected End: 12/03/23 Patient will complete toileting including hygiene clothing management/hygiene with set-up and supervision level of assistance and grab bars. (Progressing) Start: 11/12/23 Expected End: 12/03/23 MOBILITY TRANSFERS Patient will perform bed mobility stand by assist level of assistance and bed rails in order to improve safety and independence with mobility (Progressing) Start: 11/12/23 Expected End: 12/03/23 Patient will complete sit to w/c transfer with contact guard assist level of assistance and least restrictive device in order to improve safety and prepare for out of bed mobility. (Progressing) Start: 11/12/23 Expected End: 12/03/23 11/12/23 at 2:54 PM Alonzo Antony OTR/OTD Rehab Office: [phone] * Sophie Trevino, PT - 11/12/2023 2:21 PM EDT Physical Therapy Physical Therapy Evaluation Patient Name: Daryn Shah Today's Date: 11/12/2023 Time Calculation Start Time: 1130 Stop Time: 1143 Time Calculation (min): 13 min Assessment/Plan PT Assessment PT Assessment Results: Decreased endurance, Impaired balance, Decreased mobility, Decreased strength Rehab Prognosis: Good Medical Staff Made Aware: Yes End of Session Communication: Bedside nurse Assessment Comment: Patient is a 77yo F presenting with back pain and vertebral osteomyelitis of the thoracic spine with multiple perivertebral abscesses on imaging. pt lives with son who assists as needed; uses power chair and non- ambulatory. pt is near baseline, dc rec low with continued assist at home End of Session Patient Position: Bed, 3 rail up IP OR SWING BED PT PLAN Inpatient or Swing Bed: Inpatient PT Plan Treatment/Interventions: Bed mobility, Transfer training, Balance training, Neuromuscular re-education, Strengthening, Therapeutic exercise, Therapeutic activity, Endurance training, Range of motion PT Plan: Ongoing PT PT Frequency: 2 times per week PT Discharge Recommendations: Low intensity level of continued care PT - OK to Discharge: Yes Subjective General Visit Information: General Reason for Referral: back pain and vertebral osteomyelitis of the thoracic spine with multiple perivertebral abscesses on imaging. Past Medical History Relevant to Rehab: atrial fibrillation on rivaroxaban, DM2 not on insulin, non-ambulatory status with significant functional overlay 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 Co-Treatment: OT Co-Treatment Reason: maximize pt safety and function in low AMPAC score Prior to Session Communication: Bedside nurse Patient Position Received: Bed, 3 rail up General Comment: pt supine in bed, RN cleared. pt cooperative Home Living: Home Living Type of Home: House Lives With: (son) Home Adaptive Equipment: Wheelchair-power (slide board, hospital bed) Home Layout: One level Home Access: Level entry, Ramped entrance Bathroom Shower/Tub: (reports sponge bathing) Home Living Comments: recently dc from SNF at end of october Prior Level of Function: Prior Function Per Pt/Caregiver Report Receives Help From: Family ADL Assistance: (sponge bathes) Homemaking Assistance: (son assists) Ambulatory Assistance: (pt reports non-ambulatory and has not stood in a long time. pt reports she slides to power chaiir (not with board)) Precautions: Precautions Medical Precautions: Fall precautions Objective Pain: Pain Assessment Pain Assessment: 0-10 0-10 (Numeric) Pain Score: 5 - Moderate pain Pain Type: Acute pain Pain Location: Back Cognition: Cognition Overall Cognitive Status: Within Functional Limits Orientation Level: Oriented X4 General Assessments: Activity Tolerance Endurance: Tolerates 10 - 20 min exercise with multiple rests Static Sitting Balance Static Sitting-Level of Assistance: Distant supervision Static Sitting-Comment/Number of Minutes: 5 Functional Assessments: Bed Mobility Bed Mobility: Yes Bed Mobility 1 Bed Mobility 1: Supine to sitting, Sitting to supine Level of Assistance 1: Contact guard Bed Mobility 2 Bed Mobility 2: (lateral scoots) Level of Assistance 2: Contact guard Bed Mobility Comments 2: along EOB Transfers Transfer: (pt declined despite encouragement) Extremity/Trunk Assessments: RLE RLE : (3/) LLE LLE : (3/) Outcome Measures: [facility] Basic Mobility Turning from your back to your side while in a flat bed without using bedrails: A little Moving from lying on your back to sitting on the side of a flat bed without using bedrails: A little Moving to and from bed to chair (including a wheelchair): A lot Standing up from a chair using your arms (e.g. wheelchair or bedside chair): Total To walk in hospital room: Total Climbing 3-5 steps with railing: Total Basic Mobility - Total Score: 11 Encounter Problems Encounter Problems (Active) PT Transfers STG - Transfer from bed to chair SBA (Progressing) Start: 11/12/23 Expected End: 11/26/23 STG - Patient to transfer to and from sit to supine indep (Progressing) Start: 11/12/23 Expected End: 11/26/23 STG - Patient will roll indep (Progressing) Start: 11/12/23 Expected End: 11/26/23 STG - Patient will transfer sit to and from stand LRAD mod A (Progressing) Start: 11/12/23 Expected End: 11/26/23 Education Documentation Precautions, taught by Sophie Trevino PT at 11/12/2023 2:21 PM. Learner: Patient Readiness: Acceptance Method: Explanation Response: Verbalizes Understanding Comment: edu on role of PT,dc plan and safety Mobility Training, taught by Sophie Trevino PT at 11/12/2023 2:21 PM. Learner: Patient Readiness: Acceptance Method: Explanation Response: Verbalizes Understanding Comment: edu on role of PT,dc plan and safety Education Comments No comments found. * Kay Putnam RN - 11/12/2023 1:57 PM EDT Transitional Care Coordination Progress Note: Patient discussed during interdisciplinary rounds. Team members present: , DANILO Plan per Medical/Surgical team: Pt transferred from [facility] with multiple large lung nodules c/f mets, plan for IR for biopsy today and consult with ID regarding fdc IV abx plan. Neuro-surgery team, PT/OT consulted. Payer: [employer] Status: Inpatient Discharge disposition: PT/OT evals are pending, anticipate pt will need inpatient rehab based on current [facility] mobility score of 11. Potential Barriers: none ADOD: 11/14 Attempted to meet with pt this afternoon but she was resting in bed with her eyes closed, decision made not to aware pt/ assessment deferred to another date and time. casting coordinator will continue to follow for discharge planning needs. Kay Putnam RN Transitional Manager [employer]/[facility] [id number] * Ru Ortega MD - 11/12/2023 12:32 PM EDT Subjective Daryn Shah is a 77 y.o. female on hospital day 3 with no new events. Continues to have some back pain but overall doing well and no new events or complaints Objective Exam Vitals: 11/11/23 2119 11/12/23 0036 11/12/23 0759 11/12/23 1122 BP: 108/67 112/65 108/64 107/67 BP Location: Right arm Patient Position: Pulse: 73 66 68 66 Resp: 16 16 17 Temp: 36.5 C (97.7 F) 36.4 C (97.5 F) 36.1 C (97 F) 36 C (96.8 F) TempSrc: Temporal SpO2: 98% 96% 94% 97% Weight: Height: Intake/Output last 3 shifts: I/O last 3 completed shifts: In: 200 (2.1 mL/kg) [IV Piggyback:200] Out: 550 (5.8 mL/kg) [Urine:550 (0.2 mL/kg/hr)] Weight: 94.6 kg Physical Exam Vitals reviewed. Constitutional: General: She is not in acute distress. Appearance: She is obese. She is not ill-appearing, toxic-appearing or diaphoretic. Comments: Very pleasant HENT: Head: Normocephalic and atraumatic. Cardiovascular: Rate and Rhythm: Normal rate. Rhythm irregular. Pulses: Normal pulses. Heart sounds: No murmur heard. No friction rub. No gallop. Pulmonary: Effort: Pulmonary effort is normal. Breath sounds: Normal breath sounds. No wheezing, rhonchi or rales. Abdominal: General: Bowel sounds are normal. There is no distension. Palpations: Abdomen is soft. Tenderness: There is no abdominal tenderness. There is no guarding or rebound. Musculoskeletal: Comments: Trace bilateral lower extremity edema with scarring from old wounds that are now well-healed and hyperpigmentation Skin: General: Skin is warm and dry. Neurological: General: No focal deficit present. Mental Status: She is alert and oriented to person, place, and time. Psychiatric: Mood and Affect: Mood normal. Behavior: Behavior normal. Medications atenolol, 50 mg, oral, BID cholecalciferol, 2,000 Units, oral, Daily [Held by provider] enoxaparin, 40 mg, subcutaneous, q24h insulin lispro, 0-10 Units, subcutaneous, Before meals & nightly piperacillin-tazobactam, 3.375 g, intravenous, q6h polyethylene glycol, 34 g, oral, BID [Held by provider] rivaroxaban, 20 mg, oral, Daily rosuvastatin, 10 mg, oral, Nightly sennosides, 2 tablet, oral, BID vancomycin, 1,250 mg, intravenous, q24h venlafaxine XR, 75 mg, oral, Daily PRN medications: acetaminophen, dextrose, dextrose, glucagon, ipratropium- albuteroL, oxyCODONE, vancomycin Labs All new labs reviewed: some of the basic labs as follows - Results from last 7 days Lab Units 11/12/23 0757 11/11/23 0746 11/09/23 0303 WBC AUTO x10*3/uL 7.3 6.5 8.8 HEMOGLOBIN g/dL 10.8* 10.6* 10.8* HEMATOCRIT % 33.7* 33.4* 34.5* PLATELETS AUTO x10*3/uL 223 219 263 NEUTROS PCT AUTO % 43.9 50.8 54.6 LYMPHS PCT AUTO % 43.9 37.4 34.8 MONOS PCT AUTO % 9.0 8.7 7.6 EOS PCT AUTO % 2.1 2.3 1.8 Results from last 72 hours Lab Units 11/12/23 0757 INR 1.1 APTT seconds 34 Results from last 72 hours Lab Units 11/12/2375611/11/23 1722 11/11/23 0746 SODIUM mmol/L 136 134* 135* POTASSIUM mmol/L 3.5 4.1 3.0* CHLORIDE mmol/L 95* 93* 95* CO2 mmol/L 34* 35* 33* BUN mg/dL 13 14 15 CREATININE mg/dL 0.75 0.79 0.80 Results from last 72 hours Lab Units 11/12/2375611/11/23 17211/11/23 0746 ALK PHOS U/L 143* -- -- AST U/L 17 -- -- ALT U/L 8 -- -- BILIRUBIN TOTAL mg/dL 0.3 -- -- BILIRUBIN DIRECT mg/dL 0.1 -- -- ALBUMIN g/dL 2.8* 2.6* 2.6* PROTEIN TOTAL g/dL 6.0* -- -- Results from last 72 hours Lab Units 11/12/2375611/11/23172111/11/23 0746 GLUCOSE mg/dL 118* 166* 139* No results found for: TR1 Lab Results Component Value Date URINECULTURE (A) 11/06/2023 Multiple organisms present, probable contamination. Repeat culture if clinically indicated. BLOODCULT No growth at 2 days 11/09/2023 BLOODCULT No growth at 2 days 11/09/2023 BLOODCULT No growth at 4 days - FINAL REPORT 11/06/2023 BLOODCULT No growth at 4 days - FINAL REPORT 11/06/2023 Imaging ECG 12 lead Atrial fibrillation with premature ventricular or aberrantly conducted complexes Low voltage QRS Left anterior fascicular block ST & T wave abnormality, consider lateral ischemia Abnormal ECG When compared with ECG of 10-OCT-2023 01:16, No significant change was found See ED provider note for full interpretation and clinical correlation Confirmed by Sophie Florian ([id number]) on 11/06/2023 8:58:45 PM MR lumbar spine w and wo IV contrast Narrative: Interpreted By: Lynda Bal, STUDY: MRI of the lumbar spine without IV contrast; 11/06/2023 12:58 pm INDICATION: Signs/Symptoms:Abnormal thoracic CT scan, cancer staging. COMPARISON: None. ACCESSION NUMBER(S): [id number] ORDERING CLINICIAN: VERA HUANG TECHNIQUE: Sagittal and axial STIR and T1-weighted MRI images of the lumbar spine were acquired using a spondylolysis protocol. 20 mL Dotarem injected intravenously. Sagittal and axial T1 postcontrast images were performed. FINDINGS: For counting purposes the last lumbarized vertebral body is labeled L5. Alignment and vertebral body heights are maintained. Mild heterogeneous bone marrow signal without a focal lesion on the STIR sequence is nonspecific. T1 and T2 hyperintense lesion within the L4 vertebral body is compatible with a hemangioma. There is desiccated disc signal throughout the lower thoracic and lumbar spine. There is osseous fusion across the disc space at L4-L5. The conus terminates at L1. Paraspinal soft tissues are unremarkable. Fatty atrophy of the lower paraspinal muscles. Evaluation by level: T12-L1: Disc bulge and facet arthrosis. No spinal canal stenosis. Mild neural foraminal stenosis. L1-L2: Disc bulge and facet arthrosis. Mild spinal canal stenosis. Mild neural foraminal stenosis. L2-L3: Disc bulge, facet arthrosis and ligamentum flavum thickening. Moderate spinal canal stenosis, narrowing of the subarticular recess and [id number] bilateral neural foraminal stenosis. L3-L4: Disc bulge, facet arthrosis and ligamentum flavum thickening. Severe spinal canal stenosis. Moderate bilateral neural foraminal stenosis. L4-L5: Disc bulge, facet arthrosis and ligamentum flavum thickening. Moderate to severe spinal canal and neural foraminal stenosis. L5-S1: Disc bulge and facet arthrosis. No spinal canal stenosis. Moderate bilateral neural foraminal stenosis. Impression: Multilevel degenerative disc disease and facet arthrosis most pronounced at L3-L4 with severe spinal canal and moderate bilateral neural foraminal stenosis. Mildly heterogeneous bone marrow signal is nonspecific. There is a hemangioma within the L4 vertebral body. Otherwise no focal lesion within the lumbar spine. I personally reviewed the images/study and I agree with the findings as stated. This study was interpreted at [facility], [place], [place]. MACRO: None Signed by: Lynda Bal 11/06/2023 1:29 PM Dictation workstation: [id number] MR thoracic spine w and wo IV contrast Narrative: Interpreted By: Lynda Bal, STUDY: MR THORACIC SPINE W AND WO IV CONTRAST; 11/06/2023 12:58 pm INDICATION: Signs/Symptoms:Abnormal thoracic CT scan, cancer staging. COMPARISON: None. ACCESSION NUMBER(S): [id number] ORDERING CLINICIAN: VERA HUANG TECHNIQUE: Sagittal T1, T2, STIR and axial T2 and T1 weighted MR images of the thoracic spine were obtained. FINDINGS: Counting was performed from the C2 vertebral body on the integrated logistics programs director image. Alignment: There is slightly exaggerated thoracic kyphosis. Alignment is otherwise maintained. Vertebrae/Intervertebral Discs: Vertebral body heights are maintained. There is diffuse T1 hypointense STIR hyperintense signal throughout the T6, T7 in the majority of the T8 vertebral bodies. The bone marrow is otherwise mildly heterogeneous without a focal lesion on the STIR sequence. There is increased signal within the disc spaces at T6-T7 and T7-T8 with irregularity of the endplates, T6-T7> T7-T8. Otherwise there is desiccated disc signal throughout the thoracic spine with mild degenerative endplate changes and [id number] disc height loss. There is prevertebral infiltration extending from T6 through T8. There is paraspinal infiltration at T6 through T8. There are multiple small subcentimeter rim enhancing collections within the paraspinal soft tissues suggesting small at the T6 through T8 levels. There is greater than expected enhancement within the epidural space extending from T6 through T9 suggesting reactive change and or phlegmon. This results in severe spinal canal stenosis at T6 through T8. Cord: Questionable increased cord signal on the STIR sequence at T6 through T8. The thoracic cord is otherwise unremarkable. C7-T1 through T4-T5: Degenerative changes without significant spinal canal stenosis and varying degrees of mild neural foraminal narrowing. T5-T6: Degenerative changes and prominent posterior epidural fat results in moderate spinal canal and neural foraminal stenosis. At T6-T7 and T7-T8 there are degenerative changes as well as enhancement within the epidural space resulting in severe spinal canal stenosis. Moderate neural foraminal narrowing at T6-T7 and T7-T8. T8-T9: Degenerative changes with moderate to severe spinal canal and [id number] bilateral neural foraminal stenosis. T9-T10, T10-T11: Degenerative changes without significant spinal canal or neural foraminal stenosis. T11-T12: Disc bulge, facet arthrosis and ligamentum flavum thickening. Moderate to severe spinal canal and neural foraminal stenosis. T12-L1: Disc bulge and facet arthrosis. No spinal canal stenosis. Mild neural foraminal stenosis. There is a subcentimeter T2 hyperintense nodule within the right thyroid lobe. Impression: There is abnormal signal within the disc spaces at T6-T7 and T7-T8 as well as abnormal signal throughout the T6 and T7 vertebral bodies and the majority of the T8 vertebral body suggesting discitis osteomyelitis at these levels. There is prevertebral and paraspinal infiltration with multiple subcentimeter T1 hypointense and rim enhancing collections within the paraspinal soft tissues suggesting small abscesses. There is greater than expected enhancement within the epidural space extending from T6 through T9 suggesting phlegmon. This results in severe spinal canal stenosis at these levels. Question subtle increased cord signal on the STIR sequence. MACRO: None Signed by: Lynda Bal 11/06/2023 1:24 PM Dictation workstation: [id number] MR cervical spine w and wo IV contrast Narrative: Interpreted By: Lynda Bal, STUDY: MR CERVICAL SPINE W AND WO IV CONTRAST; 11/06/2023 12:58 pm INDICATION: Signs/Symptoms:Abnormal CT thoracic spine, Cancer staging. COMPARISON: None. ACCESSION NUMBER(S): [id number] ORDERING CLINICIAN: VERA HUANG TECHNIQUE: Sagittal T1, T2, STIR, axial T1 and axial T2 weighted images were acquired through the cervical spine. FINDINGS: The examination is markedly degraded by patient motion artifact. Alignment: The vertebral alignment is within normal limits. Vertebrae/Intervertebral Discs: The vertebral bodies demonstrate expected height. The marrow signal is within normal limits given patient motion artifact. No focal edema is noted on the STIR sequence within the bone marrow. There is desiccated disc signal throughout the cervical spine. Varying degrees of [id number] disc height loss. Cord: Within the limitation of motion artifact no abnormal signal or enhancement within the cervical cord. C1-C2: The cervicomedullary junction appears unremarkable. No spinal canal stenosis. C2-C3: No spinal canal or neural foraminal stenosis. C3-C4: Disc osteophyte complex, uncovertebral joint hypertrophy and facet arthrosis. Mild spinal canal stenosis. Moderate bilateral neural foraminal stenosis. C4-C5: Disc osteophyte complex, uncovertebral joint hypertrophy and facet arthrosis. Moderate to severe spinal canal stenosis and moderate to severe bilateral neural foraminal stenosis. C5-C6: Disc osteophyte complex, uncovertebral joint hypertrophy and facet arthrosis. Moderate to severe spinal canal and neural foraminal stenosis. C6-C7: Disc osteophyte complex uncovertebral joint hypertrophy and facet arthrosis. Moderate spinal canal and neural foraminal stenosis. C7-T1: Disc osteophyte complex and uncovertebral joint hypertrophy. No spinal canal stenosis. Moderate bilateral neural foraminal stenosis. Prevertebral soft tissues are not thickened. Impression: The examination is moderately degraded by patient motion artifact. Within this limitation, no evidence of focal osseous metastatic disease. No definite abnormal signal or enhancement within the cervical cord. Multilevel degenerative changes as detailed above. MACRO: None Signed by: Lynda Bal 11/06/2023 1:10 PM Dictation workstation: [id number] CT chest abdomen pelvis wo IV contrast Narrative: STUDY: CT Chest, Abdomen, and Pelvis without IV Contrast; 11/06/2023804 INDICATION: Abnormal thoracic spine CT. COMPARISON: CT thoracic 11/06/2023, XR chest 10/09/2023, CT abd 01/05/2020. ACCESSION NUMBER(S): [id number] ORDERING CLINICIAN: VERA HUANG TECHNIQUE: CT of the chest, abdomen, and pelvis was performed. Contiguous axial images were obtained at 3 mm slice thickness through the chest, abdomen, and pelvis. Coronal and sagittal reconstructions at 3 mm slice thickness were performed. No intravenous contrast was administered. FINDINGS: Please note that the evaluation of vessels, lymph nodes and organs is limited without intravenous contrast. There is minimal atelectasis in the left lower lobe of the lung. No consolidative infiltrate is noted. There are no pleural effusions. No filling defects are seen within the trachea or mainstem bronchi. Multiple nodules are visualized. The largest nodule is seen in the lingula abutting the vessels, measured at 1.1 x 1.0 cm(Series 3, Image 107). There is an adjacent nodule in the right middle lobe, measured at 7 x 7 mm(Series 3, Image 112). There is a 5 x 5 mm nodule in the lateral aspect of the right upper lobe(Series 3, Image 41). There is no evidence of a pneumothorax. Evaluation for hilar adenopathy is limited due to lack of IV contrast. Subcentimeter lymph nodes are seen in the mediastinum. There is no pericardial effusion. Coronary artery calcifications are present. There is no evidence of aneurysmal dilatation of the ascending aorta, aortic arch, or descending thoracic aorta. Degenerative changes are seen throughout the thoracic spine. There are prominent endplate changes seen at T6-7 and T7-8, suspicious for discitis/osteomyelitis. There is prominent prevertebral soft tissue swelling noted at these levels, suggestive of overlying phlegmonous changes. Evaluation for an abscess is limited due to lack of IV contrast. Evaluation of the abdominal viscera is suboptimal due to lack of IV contrast. No acute findings are seen within the unenhanced liver, spleen, pancreas, or adrenal glands. There is a nonobstructing 2 mm stone in the midpole of the left kidney. No hydronephrosis is noted. No bladder calculi are noted. No dilated loops of small bowel or colon are visualized. There is no evidence for free intraperitoneal air. The appendix is normal in appearance. No enlarged lymph nodes are seen within the pelvic sidewalls, iliac chains, or retroperitoneum. There is no evidence of aneurysmal dilatation of the abdominal aorta. No prominent edema is seen within the psoas musculature. Degenerative changes are seen throughout the lumbar spine. There are calcified uterine fibroids. Impression: CHEST: 1. Endplate changes involving T6-7 and T7-8, indicative of discitis/osteomyelitis. Prominent prevertebral soft tissue swelling noted, indicative of phlegmonous changes. Evaluation for an abscess is limited due to lack of IV contrast. 2. Multiple right lung nodules. The largest is measured at 1.1 x 1.0 cm in the right middle lobe. Malignancy cannot be excluded. Follow-up with PET CT scan is recommended. 3. Coronary artery calcifications. ABDOMEN/PELVIS: 1. Evaluation for an abscess is limited due to lack of IV contrast. 2. Left-sided nephrolithiasis, with no evidence of hydronephrosis. 3. Calcified uterine fibroids. Signed by Mychal Chavez MD CT thoracic spine wo IV contrast Narrative: STUDY: CT Thoracic Spine without IV Contrast; 11/06/2023 at 5:45 AM. INDICATION: Thoracic back pain. COMPARISON: None available. ACCESSION NUMBER(S): [id number] ORDERING CLINICIAN: SKINNY STEEL TECHNIQUE: CT of the thoracic spine was performed without intravenous or intrathecal contrast. Sagittal and coronal reconstructions were generated. Automated mA/kV exposure control was utilized and patient examination was performed in strict accordance with principles of ALARA. FINDINGS: What I see of the mediastinum demonstrates vascular calcifications of the great vessels and of the aortic arch without evidence of aneurysmal dilatation. Coronary artery calcifications are noted ---no gross evidence of pericardial effusion. The ascending aorta appears to be normal---- extensive vessel calcifications of the abdomen are noted. Esophageal bed appears to be normal. What I see of the adrenal glands and upper kidneys normal. There are some calcifications at the level of the left kidney measuring 2 to 3 mm that exist in a nonobstructive fashion with nephrolithiasis. Kidney atrophic changes are identified. Pancreatic bed shows fatty replacement of the pancreas ----the body of the pancreas appears to be somewhat bulbous in appearance. Recommend pancreatic CT examination with contrast The lung parenchyma is abnormal. There are scattered pulmonary nodules --- one exists in the right upper lobe measuring 0.52 cm seen on slice 172 of 729 ---a larger pulmonary nodules/lung mass exists on slice 450 / 279---this has spiculated margins measuring 1.03 cm. Some right lung scarring and fibrotic changes are identified. There is a small granuloma that exists in the right upper lobe on slice 347 of 729. Small pulmonary nodule in the left lower lobe seen on slice 479/ 729. Small granuloma in the right upper lobe measures 0.2 cm seen on slice 134 / 729. Not all of the lung parenchyma is included in our examination ---may want to correlate with full chest CT at some point. . No focal area of airspace disease. The alignment of the thoracic vertebral bodies is normal. Widespread degenerative disc changes. Various thoracic vertebral bodies demonstrate areas of low density scattered throughout the thoracic region. Cannot exclude metastatic thoracic spine lesions given this appearance. Small sclerotic focus also exists in the superior endplate of C7---- question small bone sclerotic metastasis vs. bone island. In addition to the extensive degenerative changes and osteophytes----- there appears to be dissolution and destructive changes involving the endplates of T6-7 and T7-8 with surrounding soft tissue edematous changes at this level. The endplates of T6 T7 T8 appear to be irregularly marginated and ill-defined. This is concerning for areas of discitis and again the soft tissue surrounding may also be inflammatory in origin. Consider bacterial infection/ atypical infection such as tuberculosis also would have to be considered. Correlate with fever, sedimentation rate etc. No distinct evidence of focal rib abnormality on our limited view of the ribs. Some of this abnormal presumed inflammatory soft tissue that envelopes T6-7 and 8 does appear to abut the posterior aspect of the descending aorta. No definite evidence of abnormal soft tissue density of the thoracic canal and certainly correlation with MRI is recommended to assess thecal sac and to better assess endplate destructive changes and surrounding soft tissue at T6,7,8. The MRI will also a evaluation of the multifocal small low-density lesions involving the thoracic spine. Spinous processes appear to be normal. No cheryle evidence of bony destructive change involving the pedicles at the present time. No loss of vertebral body height. Some areas of minimal vacuum phenomenon. The lower thoracic region demonstrates extensive DDD and DJD including vacuum phenomena. Impression: Extensive calcifications of the great vessels Nephrolithiasis suspected Cholecystitis changes Mild bulbous prominence of the body of the pancreas. Recommend CT of the Abdomen with contrast designed to look at the pancreas. Coronary artery calcifications Minimal basilar fibrotic changes of the lungs Multifocal pulmonary nodules of the lungs seen bilaterally in conjunction with granulomatous changes. Certainly could not exclude metastatic disease in the lungs. May want to correlate with a formal chest CT to assess the entire lung parenchyma and certainly correlate with malignancy history. 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 Quite nonspecific but cannot exclude metastatic lesions of the thoracic spine There is endplate destructive changes involving T6-7, T7-8 with some associated surrounding soft tissue concerning for inflammatory discitis with associated bone destructive changes and presumed osteomyelitis.Recommend MRI exam as the next step in the evaluation---no gross canal narrowing. I have discussed this with Skinny Bee at 11/06/2023 6:33AM Signed by Jai Johnson MD No results found for this or any previous visit from the past 1095 days. Encounter Date: 11/06/23 ECG 12 lead Result Value Ventricular Rate 96 QRS Duration 116 QT Interval 354 QTC Calculation(Bazett) 447 R Critz -50 T Critz 125 QRS Count 16 Q Onset 203 T Offset 380 QTC Fredericia 414 Narrative Atrial fibrillation with premature ventricular or aberrantly conducted complexes Low voltage QRS Left anterior fascicular block ST & T wave abnormality, consider lateral ischemia Abnormal ECG When compared with ECG of 10-OCT-2023 01:16, No significant change was found See ED provider note for full interpretation and clinical correlation Confirmed by Sophie Florian ([id number]) on 11/06/2023 8:58:45 PM Assessment and Plan Back pain: Appears consistent with vertebral osteomyelitis/discitis. Overall lower suspicion related to small pulmonary nodules. -Consulting IR for vertebral biopsy. Will send for culture and pathology to rule out mets. May [id number] testing if cultures are negative. Patient be n.p.o. for procedure today -Continue vancomycin and Zosyn. Monitor Vanco per protocol -Follow-up blood cultures. So far most recent set remain no growth to date x 2 days and previous set from 11/05 are negative and final -Follow-up neurosurgery recommendation. No plans for OR at this time -Follow-up infectious disease recommendations. Assistance is greatly appreciated -Pain control SIADH: Reportedly chronic issue. Doing well -Monitor renal function. Cardiovascular: Hypertension and A-fib. -Continue atenolol -Continue statin -Hold Xarelto in anticipation for vertebral biopsy -Holding lisinopril at this time. May be able to resume lisinopril as blood pressure dictates. Lung nodules: -Follow-up vertebral biopsy -Consider outpatient PET scan/pulmonary follow-up Hypomagnesemia/hypokalemia: -Replete magnesium and potassium. -Repeat RFP in a.m. COPD: Patient denies having ever had COPD or taking inhalers. Doing well on room air -Continue to monitor -Incentive spirometry Diabetes mellitus: Patient required 0 units sliding scale yesterday -Continue sliding scale insulin -Diabetic diet Psychiatry: -Continue Effexor DVT prophylaxis Physical therapy/Occupational Therapy when appropriate Ru Ortega MD Of note the above was done with [employer] system. Note was proofread to minimize errors. * Gilbert Momin MD - 11/12/2023 10:05 AM EDT Subjective Daryn Shah is a 77 y.o. female presenting for back pain, ID consulted for suspected osteomyelitis of thoracic vertibrae. No acute events overnight. Patient has constipation and continued back pain which is diminished with currently prescribed opiates. No n/v, fevers, chills, chest pain, or new extremity pain. No dysuria or incontinence. No new LE weakness since initial evaluation. Objective Physical Exam Constitutional: General: She is not in acute distress. Appearance: Normal appearance. She is obese. She is not ill-appearing. HENT: Head: Normocephalic and atraumatic. Nose: Nose normal. Mouth/Throat: Mouth: Mucous membranes are moist. Pharynx: Oropharynx is clear. Eyes: Extraocular Movements: Extraocular movements intact. Pupils: Pupils are equal, round, and reactive to light. Cardiovascular: Rate and Rhythm: Normal rate. Rhythm irregular. Heart sounds: Normal heart sounds. Pulmonary: Effort: Pulmonary effort is normal. Breath sounds: Normal breath sounds. Abdominal: General: Abdomen is flat. Bowel sounds are normal. Palpations: Abdomen is soft. Musculoskeletal: General: Normal range of motion. Right lower leg: No edema. Left lower leg: No edema. Skin: General: Skin is warm and dry. Capillary Refill: Capillary refill takes 2 to 3 seconds. Findings: Lesion present. Comments: Multiple small lesions on hands and legs, patient picks at them Ulcerative wound RLE, healing well Neurological: General: No focal deficit present. Mental Status: She is alert and oriented to person, place, and time. Cranial Nerves: No cranial nerve deficit. Motor: Weakness and atrophy present. Comments: BLLE 4/5 strength, no focal sensation deficits. Temp: [36.1 C (97 F)-36.5 C (97.7 F)] 36.1 C (97 F) Heart Rate: [59-84] 68 Resp: [14-16] 16 BP: (104-126)/(64-76) 108/64 Vitals: 11/09/23 0230 Weight: 94.6 kg (208 lb 8.9 oz) I/Os Intake/Output Summary (Last 24 hours) at 11/12/2023 1009 Last data filed at 11/12/2023 0938 Gross per 24 hour Intake 250 ml Output 500 ml Net -250 ml Labs: CBC: Recent Labs 11/12/23 0757 11/11/23 0746 11/09/23 0303 WBC 7.3 6.5 8.8 HGB 10.8* 10.6* 10.8* HCT 33.7* 33.4* 34.5* PLT 223 219 263 MCV 84 84 85 CMP: Recent Labs 11/11/23 1722 11/11/23 0746 11/09/23 0303 NA 134* 135* 132* K 4.1 3.0* 3.7 CL 93* 95* 96* CO2 35* 33* 25 ANIONGAP 10 10 15 BUN 14 15 14 CREATININE 0.79 0.80 0.80 EGFR 78 77 77 GLUCOSE 166* 139* 115* Recent Labs 11/11/23 1722 11/11/23 0746 11/09/23 0303 11/06/23 0513 08/03/23 1328 ALBUMIN 2.6* 2.6* 2.8* 3.3* 4.1 ALKPHOS -- -- 134 133 132* 113 ALT -- -- 12 10 12 AST -- -- 22 14 19 BILITOT -- -- 0.4 0.5 0.5 Calcium/Phos: Lab Results Component Value Date CALCIUM 8.3 (L) 11/11/2023 PHOS 2.0 (L) 11/11/2023 COAG: Recent Labs 11/12/23 0757 09/10/22 0508 09/08/22 1302 INR 1.1 1.4* 5.4* CRP: Lab Results Component Value Date CRP 4.29 (H) 11/08/2023 ENDO: Recent Labs 03/06/23 1118 09/09/22 0454 06/01/22 1138 03/01/22 1158 10/30/19 1029 02/05/19 1205 TSH -- -- -- -- -- 3.72 HGBA1C 7.2* 7.6* 8.0* 7.1* < > 6.2 < > = values in this interval not displayed. CARDIAC: Recent Labs 11/08/23 0522 11/06/23 0513 10/10/23 0315 10/10/23 0152 09/09/22 0454 TROPHS -- 9 12 12 14* BNP 484* -- -- 225* 296* Recent Labs 03/06/23 1118 09/09/22 0454 03/01/22 1158 09/14/21 1455 06/07/21 1427 CHOL 125 108 132 < > 193 LDLF -- 47 64 -- 108* LDLCALC 48 -- -- -- -- HDL 55.0 39.0* 45.0 -- 45.0 TRIG 111 108 115 < > 198* < > = values in this interval not displayed. Micro/ID: Susceptibility data from last 90 days. Collected Specimen Info Organism Ampicillin Cefazolin Cefazolin (uncomplicated UTIs only) Ciprofloxacin Gentamicin Nitrofurantoin Piperacillin/Tazobactam Tetracycline Trimethoprim/Sulfamethoxazole 10/10/23 Urine from Clean Catch/Voided Proteus mirabilis S S S S S R S R S Lab Results Component Value Date URINECULTURE (A) 11/06/2023 Multiple organisms present, probable contamination. Repeat culture if clinically indicated. BLOODCULT No growth at 2 days 11/09/2023 BLOODCULT No growth at 2 days 11/09/2023 Imaging: MR lumbar spine w and wo IV contrast Result Date: 11/06/2023 Multilevel degenerative disc disease and facet arthrosis most pronounced at L3- L4 with severe spinal canal and moderate bilateral neural foraminal stenosis. Mildly heterogeneous bone marrow signal isnonspecific. There is a hemangioma within the L4 vertebral body. Otherwise no focal lesion within the lumbar spine. MR thoracic spine w and wo IV contrast Result Date: 11/06/2023 There is abnormal signal within the disc spaces at T6-T7 and T7-T8 as well as abnormal signal throughout the T6 and T7 vertebral bodies and the majority of the T8 vertebral body suggesting discitis osteomyelitis at these levels. There is prevertebral and paraspinal infiltration with multiple subcentimeter T1 hypointense and rim enhancing collections within the paraspinal soft tissues suggesting small abscesses. There is greater than expected enhancement within the epidural space extending from T6 through T9 suggesting phlegmon. This results in severe spinal canal stenosis at these levels. Question subtle increased cord signal on the STIR sequence. MR cervical spine w and wo IV contrast Result Date: 11/06/2023 The examination is moderately degraded by patient motion artifact. Within this limitation, no evidence of focal osseous metastatic disease. No definite abnormal signal or enhancement within the cervical cord. Multilevel degenerative changes as detailed above. MACRO: None Signed by: Lynda Bal 11/06/2023 1:10 PM Dictation workstation: [id number] CT chest abdomen pelvis wo IV contrast Result Date: 11/06/2023 CHEST: 1. Endplate changes involving T6-7 and T7-8, indicative of discitis/osteomyelitis. Prominentprevertebral soft tissue swelling noted, indicative of phlegmonous changes. Evaluation for an abscess is limited due to lack of IV contrast. 2. Multiple right lung nodules. The largest is measured at 1.1 x 1.0 cm in the right middle lobe. Malignancy cannot be excluded. Follow-up with PET CT scan isrecommended. 3. Coronary artery calcifications. ABDOMEN/PELVIS: 1. Evaluation for an abscess is limited due to lack of IV contrast. 2. Left-sided nephrolithiasis, with no evidence of hydronephrosis. 3. Calcified uterine fibroids. CT thoracic spine wo IV contrast Result Date: 11/06/2023 Extensive calcifications of the great vessels Nephrolithiasis suspected Cholecystitis changes Mild bulbous prominence of the body of the pancreas. Recommend CT of the Abdomen with contrast designed to look at the pancreas. Coronary artery calcifications Minimal basilar fibrotic changes of the lungs Multifocal pulmonary nodules of the lungs seen bilaterally in conjunction with granulomatous changes. Certainly could not exclude metastatic disease in the lungs. May want to correlate with a formal chest CT to assess the entire lung parenchyma and certainly correlate with malignancy history. 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 Quite nonspecific but cannot exclude metastatic lesions of the thoracic spine There is endplate destructive changes involving T6-7, T7-8 with some associated surrounding soft tissue concerning for inflammatory discitis with associated bone destructive changes and presumed osteomyelitis.Recommend MRI exam as the next step in the evaluation---no gross canal narrowing. Meds: Scheduled medications atenolol, 50 mg, oral, BID cholecalciferol, 2,000 Units, oral, Daily [Held by provider] enoxaparin, 40 mg, subcutaneous, q24h insulin lispro, 0-10 Units, subcutaneous, Before meals & nightly piperacillin-tazobactam, 3.375 g, intravenous, q6h polyethylene glycol, 34 g, oral, BID [Held by provider] rivaroxaban, 20 mg, oral, Daily rosuvastatin, 10 mg, oral, Nightly sennosides, 2 tablet, oral, BID vancomycin, 1,250 mg, intravenous, q24h venlafaxine XR, 75 mg, oral, Daily PRN medications PRN medications: acetaminophen, dextrose, dextrose, glucagon, ipratropium- albuteroL, oxyCODONE, vancomycin Assessment Daryn Shah is a 77 y.o. 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 Presenting for progressive back pain, transferred from [facility] 11/08 for [facility] rosurgical evaluation, ID consulted for vertebral osteomyelitis of the thoracic spine with multipleperivertebral abscesses on imaging. Currently on vanc/zosyn pending biopsy for further evaluation of imaging findings. Recommendations - Cont IV vanc, dosed w/ pharmacy - Cont IV pip-tazo 3.375gm q6H - Will follow up blood cx and IR biopsy plans, when collected please send for pathology and gram stain w/ bacterial cx; if no growth will request 16s testing Gilbert Momin MD Internal Medicine PGY2 ID Consult Team A Pager [phone] [employer] Chat Preferred Associated attestation - Megan Osorio DO - 11/12/2023 9:07 PM EDT I saw and evaluated the patient. I personally obtained the pickering and critical portions of the historyand physical exam or was physically present for pickering and critical portions performed by the resident/fellow. I reviewed the resident/fellow's documentation and discussed the patient with the resident/f ajay. I agree with the resident/fellow's medical decision making as documented in the note. Pt seen this evening while eating dinner. Biopsy deferred until tomorrow. She is comfortable, tolerating abx. Awaiting biopsy results while continuing abx for now. Megan Osorio DO Epic Chat or pager [phone] * Carrington De Los Santos MD - 11/12/2023 8:29 AM EDT Daryn Shah is a 77 y.o. female on day 3 of admission presenting with Discitis, unspecified, thoracic region. Subjective No events overnight Objective Physical Exam AOx3 RUE D5 B5 T5 HG/IO 5 RLE HF5 KE5 DF/PF 5 LUE D5 B5 T5 HG/IO 5 LLE HF5 KE4 (chronic) DF/PF 5 SILT Last Recorded Vitals Blood pressure 108/64, pulse 68, temperature 36.1 C (97 F), resp. rate 16, height 1.702 m (5' 7.01), weight 94.6 kg (208 lb 8.9 oz), SpO2 94%. Intake/Output last 3 Shifts: I/O last 3 completed shifts: In: 200 (2.1 mL/kg) [IV Piggyback:200] Out: 550 (5.8 mL/kg) [Urine:550 (0.2 mL/kg/hr)] Weight: 94.6 kg Relevant Results Lab Results Component Value Date WBC 6.5 11/11/2023 HGB 10.6 (L) 11/11/2023 HCT 33.4 (L) 11/11/2023 MCV 84 11/11/2023 PLT 219 11/11/2023 Lab Results Component Value Date GLUCOSE 166 (H) 11/11/2023 CALCIUM 8.3 (L) 11/11/2023 NA 134 (L) 11/11/2023 K 4.1 11/11/2023 CO2 35 (H) 11/11/2023 CL 93 (L) 11/11/2023 BUN 14 11/11/2023 CREATININE 0.79 11/11/2023 Assessment/Plan Principal Problem: Discitis, unspecified, thoracic region Daryn is a 77 y.o. female with h/o Afib on Xarelto, HTN, HLD, T2DM, T2DM, SIADH, COPD, anxiety p/w back pain x 3wks, bedbound at baseline. MRI TS T6-9 discitis/OM, pre-vertebral phlegmon, CT CAP multiple R lung nodules Plan: Naff primary ID recs IR recs - bx Mon 11/11, will follow up bx results Antibiotic management per ID and primary team Poss PET as OP, will follow up Ok for DVT ppx Rest per primary Carrington De Los Santos MD * Ru Ortega MD - 11/11/2023 11:01 AM EDT Subjective Daryn Shah is a 77 y.o. female on hospital day 2 with no new events. Continues to have some back pain but overall doing well Objective Exam Vitals: 11/10/23 1600 11/10/23 2040 11/11/23 0658 11/11/23 0816 BP: 107/71 145/87 116/68 117/66 BP Location: Left arm Patient Position: Lying Lying Lying Pulse: 65 76 57 56 Resp: 18 16 16 14 Temp: 36.5 C (97.7 F) 35.6 C (96.1 F) 36 C (96.8 F) 36.5 C (97.7 F) TempSrc: Temporal Temporal Temporal Temporal SpO2: 96% 95% 96% 97% Weight: Height: Intake/Output last 3 shifts: I/O last 3 completed shifts: In: - (0 mL/kg) Out: 850 (9 mL/kg) [Urine:850 (0.2 mL/kg/hr)] Weight: 94.6 kg Physical Exam Vitals reviewed. Constitutional: General: She is not in acute distress. Appearance: She is obese. She is not ill-appearing, toxic-appearing or diaphoretic. Comments: Very pleasant HENT: Head: Normocephalic and atraumatic. Cardiovascular: Rate and Rhythm: Normal rate. Rhythm irregular. Pulses: Normal pulses. Heart sounds: No murmur heard. No friction rub. No gallop. Pulmonary: Effort: Pulmonary effort is normal. Breath sounds: Normal breath sounds. No wheezing, rhonchi or rales. Abdominal: General: Bowel sounds are normal. There is no distension. Palpations: Abdomen is soft. Tenderness: There is no abdominal tenderness. There is no guarding or rebound. Musculoskeletal: Comments: Trace bilateral lower extremity edema with scarring from old wounds that are now well-healed and hyperpigmentation Skin: General: Skin is warm and dry. Neurological: General: No focal deficit present. Mental Status: She is alert and oriented to person, place, and time. Psychiatric: Mood and Affect: Mood normal. Behavior: Behavior normal. Medications atenolol, 50 mg, oral, BID cholecalciferol, 2,000 Units, oral, Daily [Held by provider] enoxaparin, 40 mg, subcutaneous, q24h insulin lispro, 0-10 Units, subcutaneous, Before meals & nightly magnesium sulfate, 4 g, intravenous, Once piperacillin-tazobactam, 3.375 g, intravenous, q6h polyethylene glycol, 34 g, oral, BID potassium chloride, 20 mEq, intravenous, q2h [Held by provider] rivaroxaban, 20 mg, oral, Daily rosuvastatin, 10 mg, oral, Nightly sennosides, 2 tablet, oral, BID vancomycin, 1,250 mg, intravenous, q24h venlafaxine XR, 75 mg, oral, Daily PRN medications: acetaminophen, dextrose, dextrose, glucagon, ipratropium- albuteroL, oxyCODONE, vancomycin Labs All new labs reviewed: some of the basic labs as follows - Results from last 7 days Lab Units 11/11/23 0746 11/09/23 0303 11/08/23 0523 11/07/23 0422 11/06/23 0513 WBC AUTO x10*3/uL 6.5 8.8 7.8 < > 10.8 HEMOGLOBIN g/dL 10.6* 10.8* 10.3* < > 11.6* HEMATOCRIT % 33.4* 34.5* 33.3* < > 37.0 PLATELETS AUTO x10*3/uL 219 263 228 < > 353 NEUTROS PCT AUTO % 50.8 54.6 -- -- 60.0 LYMPHS PCT AUTO % 37.4 34.8 -- -- 28.8 MONOS PCT AUTO % 8.7 7.6 -- -- 9.4 EOS PCT AUTO % 2.3 1.8 -- -- 0.8 < > = values in this interval not displayed. Results from last 72 hours Lab Units 11/11/23 0746 11/09/23 0303 SODIUM mmol/L 135* 132* POTASSIUM mmol/L 3.0* 3.7 CHLORIDE mmol/L 95* 96* CO2 mmol/L 33* 25 BUN mg/dL 15 14 CREATININE mg/dL 0.80 0.80 Results from last 72 hours Lab Units 11/11/23 0746 11/09/23 0303 ALK PHOS U/L -- 134 AST U/L -- 22 ALT U/L -- 12 BILIRUBIN TOTAL mg/dL -- 0.4 ALBUMIN g/dL 2.6* 2.8* PROTEIN TOTAL g/dL -- 5.8* Results from last 72 hours Lab Units 11/11/23 0746 11/09/23 0303 GLUCOSE mg/dL 139* 115* Results from last 72 hours Lab Units 11/09/23 0339 LEUKOCYTES U NEGATIVE NITRITE U NEGATIVE BLOOD UR NEGATIVE No results found for: TR1 Lab Results Component Value Date URINECULTURE (A) 11/06/2023 Multiple organisms present, probable contamination. Repeat culture if clinically indicated. BLOODCULT No growth at 1 day 11/09/2023 BLOODCULT No growth at 1 day 11/09/2023 BLOODCULT No growth at 4 days - FINAL REPORT 11/06/2023 BLOODCULT No growth at 4 days - FINAL REPORT 11/06/2023 Imaging ECG 12 lead Atrial fibrillation with premature ventricular or aberrantly conducted complexes Low voltage QRS Left anterior fascicular block ST & T wave abnormality, consider lateral ischemia Abnormal ECG When compared with ECG of 10-OCT-2023 01:16, No significant change was found See ED provider note for full interpretation and clinical correlation Confirmed by Sophie Florian ([id number]) on 11/06/2023 8:58:45 PM MR lumbar spine w and wo IV contrast Narrative: Interpreted By: Lynda Bal, STUDY: MRI of the lumbar spine without IV contrast; 11/06/2023 12:58 pm INDICATION: Signs/Symptoms:Abnormal thoracic CT scan, cancer staging. COMPARISON: None. ACCESSION NUMBER(S): [id number] ORDERING CLINICIAN: VERA HUANG TECHNIQUE: Sagittal and axial STIR and T1-weighted MRI images of the lumbar spine were acquired using a spondylolysis protocol. 20 mL Dotarem injected intravenously. Sagittal and axial T1 postcontrast images were performed. FINDINGS: For counting purposes the last lumbarized vertebral body is labeled L5. Alignment and vertebral body heights are maintained. Mild heterogeneous bone marrow signal without a focal lesion on the STIR sequence is nonspecific. T1 and T2 hyperintense lesion within the L4 vertebral body is compatible with a hemangioma. There is desiccated disc signal throughout the lower thoracic and lumbar spine. There is osseous fusion across the disc space at L4-L5. The conus terminates at L1. Paraspinal soft tissues are unremarkable. Fatty atrophy of the lower paraspinal muscles. Evaluation by level: T12-L1: Disc bulge and facet arthrosis. No spinal canal stenosis. Mild neural foraminal stenosis. L1-L2: Disc bulge and facet arthrosis. Mild spinal canal stenosis. Mild neural foraminal stenosis. L2-L3: Disc bulge, facet arthrosis and ligamentum flavum thickening. Moderate spinal canal stenosis, narrowing of the subarticular recess and fqkg-go-ygnkdbdq bilateral neural foraminal stenosis. L3-L4: Disc bulge, facet arthrosis and ligamentum flavum thickening. Severe spinal canal stenosis. Moderate bilateral neural foraminal stenosis. L4-L5: Disc bulge, facet arthrosis and ligamentum flavum thickening. Moderate to severe spinal canal and neural foraminal stenosis. L5-S1: Disc bulge and facet arthrosis. No spinal canal stenosis. Moderate bilateral neural foraminal stenosis. Impression: Multilevel degenerative disc disease and facet arthrosis most pronounced at L3-L4 with severe spinal canal and moderate bilateral neural foraminal stenosis. Mildly heterogeneous bone marrow signal is nonspecific. There is a hemangioma within the L4 vertebral body. Otherwise no focal lesion within the lumbar spine. I personally reviewed the images/study and I agree with the findings as stated. This study was interpreted at [place], [place]. MACRO: None Signed by: Lynda Bal 11/06/2023 1:29 PM Dictation workstation: [id number] MR thoracic spine w and wo IV contrast Narrative: Interpreted By: Lynda Bal, STUDY: MR THORACIC SPINE W AND WO IV CONTRAST; 11/06/2023 12:58 pm INDICATION: Signs/Symptoms:Abnormal thoracic CT scan, cancer staging. COMPARISON: None. ACCESSION NUMBER(S): [id number] ORDERING CLINICIAN: VERA HUANG TECHNIQUE: Sagittal T1, T2, STIR and axial T2 and T1 weighted MR images of the thoracic spine were obtained. FINDINGS: Counting was performed from the C2 vertebral body on the integrated [employer] programs director image. Alignment: There is slightly exaggerated thoracic kyphosis. Alignment is otherwise maintained. Vertebrae/Intervertebral Discs: Vertebral body heights are maintained. There is diffuse T1 hypointense STIR hyperintense signal throughout the T6, T7 in the majority of the T8 vertebral bodies. The bone marrow is otherwise mildly heterogeneous without a focal lesion on the STIR sequence. There is increased signal within the disc spaces at T6-T7 and T7-T8 with irregularity of the endplates, T6-T7> T7-T8. Otherwise there is desiccated disc signal throughout the thoracic spine with mild degenerative endplate changes and ahmh-nu-sdtywmar disc height loss. There is prevertebral infiltration extending from T6 through T8. There is paraspinal infiltration at T6 through T8. There are multiple small subcentimeter rim enhancing collections within the paraspinal soft tissues suggesting small at the T6 through T8 levels. There is greater than expected enhancement within the epidural space extending from T6 through T9 suggesting reactive change and or phlegmon. This results in severe spinal canal stenosis at T6 through T8. Cord: Questionable increased cord signal on the STIR sequence at T6 through T8. The thoracic cord is otherwise unremarkable. C7-T1 through T4-T5: Degenerative changes without significant spinal canal stenosis and varying degrees of mild neural foraminal narrowing. T5-T6: Degenerative changes and prominent posterior epidural fat results in moderate spinal canal and neural foraminal stenosis. At T6-T7 and T7-T8 there are degenerative changes as well as enhancement within the epidural space resulting in severe spinal canal stenosis. Moderate neural foraminal narrowing at T6-T7 and T7-T8. T8-T9: Degenerative changes with moderate to severe spinal canal and zimz-br-alpyzxes bilateral neural foraminal stenosis. T9-T10, T10-T11: Degenerative changes without significant spinal canal or neural foraminal stenosis. T11-T12: Disc bulge, facet arthrosis and ligamentum flavum thickening. Moderate to severe spinal canal and neural foraminal stenosis. T12-L1: Disc bulge and facet arthrosis. No spinal canal stenosis. Mild neural foraminal stenosis. There is a subcentimeter T2 hyperintense nodule within the right thyroid lobe. Impression: There is abnormal signal within the disc spaces at T6-T7 and T7-T8 as well as abnormal signal throughout the T6 and T7 vertebral bodies and the majority of the T8 vertebral body suggesting discitis osteomyelitis at these levels. There is prevertebral and paraspinal infiltration with multiple subcentimeter T1 hypointense and rim enhancing collections within the paraspinal soft tissues suggesting small abscesses. There is greater than expected enhancement within the epidural space extending from T6 through T9 suggesting phlegmon. This results in severe spinal canal stenosis at these levels. Question subtle increased cord signal on the STIR sequence. MACRO: None Signed by: Lynda Bal 11/06/2023 1:24 PM Dictation workstation: [id number] MR cervical spine w and wo IV contrast Narrative: Interpreted By: Lynda Bal, STUDY: MR CERVICAL SPINE W AND WO IV CONTRAST; 11/06/2023 12:58 pm INDICATION: Signs/Symptoms:Abnormal CT thoracic spine, Cancer staging. COMPARISON: None. ACCESSION NUMBER(S): [id number] ORDERING CLINICIAN: VERA HUANG TECHNIQUE: Sagittal T1, T2, STIR, axial T1 and axial T2 weighted images were acquired through the cervical spine. FINDINGS: The examination is markedly degraded by patient motion artifact. Alignment: The vertebral alignment is within normal limits. Vertebrae/Intervertebral Discs: The vertebral bodies demonstrate expected height. The marrow signal is within normal limits given patient motion artifact. No focal edema is noted on the STIR sequence within the bone marrow. There is desiccated disc signal throughout the cervical spine. Varying degrees of sfqd-fj-buglsutp disc height loss. Cord: Within the limitation of motion artifact no abnormal signal or enhancement within the cervical cord. C1-C2: The cervicomedullary junction appears unremarkable. No spinal canal stenosis. C2-C3: No spinal canal or neural foraminal stenosis. C3-C4: Disc osteophyte complex, uncovertebral joint hypertrophy and facet arthrosis. Mild spinal canal stenosis. Moderate bilateral neural foraminal stenosis. C4-C5: Disc osteophyte complex, uncovertebral joint hypertrophy and facet arthrosis. Moderate to severe spinal canal stenosis and moderate to severe bilateral neural foraminal stenosis. C5-C6: Disc osteophyte complex, uncovertebral joint hypertrophy and facet arthrosis. Moderate to severe spinal canal and neural foraminal stenosis. C6-C7: Disc osteophyte complex uncovertebral joint hypertrophy and facet arthrosis. Moderate spinal canal and neural foraminal stenosis. C7-T1: Disc osteophyte complex and uncovertebral joint hypertrophy. No spinal canal stenosis. Moderate bilateral neural foraminal stenosis. Prevertebral soft tissues are not thickened. Impression: The examination is moderately degraded by patient motion artifact. Within this limitation, no evidence of focal osseous metastatic disease. No definite abnormal signal or enhancement within the cervical cord. Multilevel degenerative changes as detailed above. MACRO: None Signed by: Lynda Bal 11/06/2023 1:10 PM Dictation workstation: [id number] CT chest abdomen pelvis wo IV contrast Narrative: STUDY: CT Chest, Abdomen, and Pelvis without IV Contrast; 11/06/2023, 804 INDICATION: Abnormal thoracic spine CT. COMPARISON: CT thoracic 11/06/2023, XR chest 10/09/2023, CT abd 01/05/2020. ACCESSION NUMBER(S): [id number] ORDERING CLINICIAN: VERA HUANG TECHNIQUE: CT of the chest, abdomen, and pelvis was performed. Contiguous axial images were obtained at 3 mm slice thickness through the chest, abdomen, and pelvis. Coronal and sagittal reconstructions at 3 mm slice thickness were performed. No intravenous contrast was administered. FINDINGS: Please note that the evaluation of vessels, lymph nodes and organs is limited without intravenous contrast. There is minimal atelectasis in the left lower lobe of the lung. No consolidative infiltrate is noted. There are no pleural effusions. No filling defects are seen within the trachea or mainstem bronchi. Multiple nodules are visualized. The largest nodule is seen in the lingula abutting the vessels, measured at 1.1 x 1.0 cm(Series 3, Image 107). There is an adjacent nodule in the right middle lobe, measured at 7 x 7 mm(Series 3, Image 112). There is a 5 x 5 mm nodule in the lateral aspect of the right upper lobe(Series 3, Image 41). There is no evidence of a pneumothorax. Evaluation for hilar adenopathy is limited due to lack of IV contrast. Subcentimeter lymph nodes are seen in the mediastinum. There is no pericardial effusion. Coronary artery calcifications are present. There is no evidence of aneurysmal dilatation of the ascending aorta, aortic arch, or descending thoracic aorta. Degenerative changes are seen throughout the thoracic spine. There are prominent endplate changes seen at T6-7 and T7-8, suspicious for discitis/osteomyelitis. There is prominent prevertebral soft tissue swelling noted at these levels, suggestive of overlying phlegmonous changes. Evaluation for an abscess is limited due to lack of IV contrast. Evaluation of the abdominal viscera is suboptimal due to lack of IV contrast. No acute findings are seen within the unenhanced liver, spleen, pancreas, or adrenal glands. There is a nonobstructing 2 mm stone in the midpole of the left kidney. No hydronephrosis is noted. No bladder calculi are noted. No dilated loops of small bowel or colon are visualized. There is no evidence for free intraperitoneal air. The appendix is normal in appearance. No enlarged lymph nodes are seen within the pelvic sidewalls, iliac chains, or retroperitoneum. There is no evidence of aneurysmal dilatation of the abdominal aorta. No prominent edema is seen within the psoas musculature. Degenerative changes are seen throughout the lumbar spine. There are calcified uterine fibroids. Impression: CHEST: 1. Endplate changes involving T6-7 and T7-8, indicative of discitis/osteomyelitis. Prominent prevertebral soft tissue swelling noted, indicative of phlegmonous changes. Evaluation for an abscess is limited due to lack of IV contrast. 2. Multiple right lung nodules. The largest is measured at 1.1 x 1.0 cm in the right middle lobe. Malignancy cannot be excluded. Follow-up with PET CT scan is recommended. 3. Coronary artery calcifications. ABDOMEN/PELVIS: 1. Evaluation for an abscess is limited due to lack of IV contrast. 2. Left-sided nephrolithiasis, with no evidence of hydronephrosis. 3. Calcified uterine fibroids. Signed by Mychal Chavez MD CT thoracic spine wo IV contrast Narrative: STUDY: CT Thoracic Spine without IV Contrast; 11/06/2023 at 5:45 AM. INDICATION: Thoracic back pain. COMPARISON: None available. ACCESSION NUMBER(S): [id number] ORDERING CLINICIAN: SKINNY [employer]EL TECHNIQUE: CT of the thoracic spine was performed without intravenous or intrathecal contrast. Sagittal and coronal reconstructions were generated. Automated mA/kV exposure control was utilized and patient examination was performed in strict accordance with principles of ALARA. FINDINGS: What I see of the mediastinum demonstrates vascular calcifications of the great vessels and of the aortic arch without evidence of aneurysmal dilatation. Coronary artery calcifications are noted ---no gross evidence of pericardial effusion. The ascending aorta appears to be normal---- extensive vessel calcifications of the abdomen are noted. Esophageal bed appears to be normal. What I see of the adrenal glands and upper kidneys normal. There are some calcifications at the level of the left kidney measuring 2 to 3 mm that exist in a nonobstructive fashion with nephrolithiasis. Kidney atrophic changes are identified. Pancreatic bed shows fatty replacement of the pancreas ----the body of the pancreas appears to be somewhat bulbous in appearance. Recommend pancreatic CT examination with contrast The lung parenchyma is abnormal. There are scattered pulmonary nodules --- one exists in the right upper lobe measuring 0.52 cm seen on slice 172 of 729 ---a larger pulmonary nodules/lung mass exists on slice 450 / 279---this has spiculated margins measuring 1.03 cm. Some right lung scarring and fibrotic changes are identified. There is a small granuloma that exists in the right upper lobe on slice 347 of 729. Small pulmonary nodule in the left lower lobe seen on slice 479/ 729. Small granuloma in the right upper lobe measures 0.2 cm seen on slice 134 / 729. Not all of the lung parenchyma is included in our examination ---may want to correlate with full chest CT at some point. . No focal area of airspace disease. The alignment of the thoracic vertebral bodies is normal. Widespread degenerative disc changes. Various thoracic vertebral bodies demonstrate areas of low density scattered throughout the thoracic region. Cannot exclude metastatic thoracic spine lesions given this appearance. Small sclerotic focus also exists in the superior endplate of C7---- question small bone sclerotic metastasis vs. bone island. In addition to the extensive degenerative changes and osteophytes----- there appears to be dissolution and destructive changes involving the endplates of T6-7 and T7-8 with surrounding soft tissue edematous changes at this level. The endplates of T6 T7 T8 appear to be irregularly marginated and ill-defined. This is concerning for areas of discitis and again the soft tissue surrounding may also be inflammatory in origin. Consider bacterial infection/ atypical infection such as tuberculosis also would have to be considered. Correlate with fever, sedimentation rate etc. No distinct evidence of focal rib abnormality on our limited view of the ribs. Some of this abnormal presumed inflammatory soft tissue that envelopes T6-7 and 8 does appear to abut the posterior aspect of the descending aorta. No definite evidence of abnormal soft tissue density of the thoracic canal and certainly correlation with MRI is recommended to assess thecal sac and to better assess endplate destructive changes and surrounding soft tissue at T6,7,8. The MRI will also a evaluation of the multifocal small low-density lesions involving the thoracic spine. Spinous processes appear to be normal. No cheryle evidence of bony destructive change involving the pedicles at the present time. No loss of vertebral body height. Some areas of minimal vacuum phenomenon. The lower thoracic region demonstrates extensive DDD and DJD including vacuum phenomena. Impression: Extensive calcifications of the great vessels Nephrolithiasis suspected Cholecystitis changes Mild bulbous prominence of the body of the pancreas. Recommend CT of the Abdomen with contrast designed to look at the pancreas. Coronary artery calcifications Minimal basilar fibrotic changes of the lungs Multifocal pulmonary nodules of the lungs seen bilaterally in conjunction with granulomatous changes. Certainly could not exclude metastatic disease in the lungs. May want to correlate with a formal chest CT to assess the entire lung parenchyma and certainly correlate with malignancy history. 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 Quite nonspecific but cannot exclude metastatic lesions of the thoracic spine There is endplate destructive changes involving T6-7, T7-8 with some associated surrounding soft tissue concerning for inflammatory discitis with associated bone destructive changes and presumed osteomyelitis.Recommend MRI exam as the next step in the evaluation---no gross canal narrowing. I have discussed this with Skinny Bee at 11/06/2023 6:33AM Signed by Jai Johnson MD No results found for this or any previous visit from the past 1095 days. Encounter Date: 11/06/23 ECG 12 lead Result Value Ventricular Rate 96 QRS Duration 116 QT Interval 354 QTC Calculation(Bazett) 447 R Critz -50 T Critz 125 QRS Count 16 Q Onset 203 T Offset 380 QTC Fredericia 414 Narrative Atrial fibrillation with premature ventricular or aberrantly conducted complexes Low voltage QRS Left anterior fascicular block ST & T wave abnormality, consider lateral ischemia Abnormal ECG When compared with ECG of 10-OCT-2023 01:16, No significant change was found See ED provider note for full interpretation and clinical correlation Confirmed by Sophie Florian ([id number]) on 11/06/2023 8:58:45 PM Assessment and Plan Back pain: Appears consistent with vertebral osteomyelitis/discitis. Overall lower suspicion related to small pulmonary nodules. -Consulting IR for vertebral biopsy. Will send for culture and pathology to rule out mets. May [id number] testing if cultures are negative. Patient be n.p.o. at midnight -Continue vancomycin and Zosyn. Monitor Vanco per protocol -Follow-up blood cultures. So far remain no growth to date -Follow-up neurosurgery recommendation. No plans for OR at this time -Follow-up infectious disease recommendations. Assistance is greatly appreciated -Pain control SIADH: Reportedly chronic issue. Overall stable -Monitor renal function. -If we see sodium drop significantly may need to curtail fluid intake Cardiovascular: Hypertension and A-fib. -Continue atenolol -Continue statin -Hold Xarelto in anticipation for vertebral biopsy -Holding Maxide and lisinopril at this time. May be able to resume lisinopril as blood pressure dictates. Lung nodules: -Follow-up vertebral biopsy -Consider outpatient PET scan/pulmonary follow-up Hypomagnesemia/hypokalemia: -Replete magnesium and potassium. Will repeat check in the evening COPD: Patient denies having ever had COPD or taking inhalers -Continue to monitor -Incentive spirometry Diabetes mellitus: Patient required 2 units sliding scale yesterday -Continue sliding scale insulin -Diabetic diet Psychiatry: -Continue Effexor DVT prophylaxis Physical therapy/Occupational Therapy when appropriate Ru Ortega MD Of note the above was done with [employer] dictation system. Note was proofread to minimize errors. * Bobby Gonzalez MD - 11/11/2023 10:34 AM EDT Daryn Shah is a 77 y.o. female on day 2 of admission presenting with Discitis, unspecified, thoracic region. Subjective No events overnight Objective Physical Exam AOx3 RUE D5 B5 T5 HG/IO 5 RLE HF5 KE5 DF/PF 5 LUE D5 B5 T5 HG/IO 5 LLE HF5 KE4 (chronic) DF/PF 5 SILT Last Recorded Vitals Blood pressure 117/66, pulse 56, temperature 36.5 C (97.7 F), temperature source Temporal, resp. rate 14, height 1.702 m (5' 7.01), weight 94.6 kg (208 lb 8.9 oz), SpO2 97%. Intake/Output last 3 Shifts: I/O last 3 completed shifts: In: - (0 mL/kg) Out: 850 (9 mL/kg) [Urine:850 (0.2 mL/kg/hr)] Weight: 94.6 kg Relevant Results Lab Results Component Value Date WBC 6.5 11/11/2023 HGB 10.6 (L) 11/11/2023 HCT 33.4 (L) 11/11/2023 MCV 84 11/11/2023 PLT 219 11/11/2023 Lab Results Component Value Date GLUCOSE 139 (H) 11/11/2023 CALCIUM 8.6 11/11/2023 NA 135 (L) 11/11/2023 K 3.0 (L) 11/11/2023 CO2 33 (H) 11/11/2023 CL 95 (L) 11/11/2023 BUN 15 11/11/2023 CREATININE 0.80 11/11/2023 Assessment/Plan Principal Problem: Discitis, unspecified, thoracic region Daryn is a 77 y.o. female with h/o Afib on Xarelto, HTN, HLD, T2DM, T2DM, SIADH, COPD, anxiety p/w back pain x 3wks, bedbound at baseline. MRI TS T6-9 discitis/OM, pre-vertebral phlegmon, CT CAP multiple R lung nodules Naff primary ID recs IR recs -poss bx Mon 11/11 Antibiotic management per ID and primary team Poss PET as OP, will follow up Ok for DVT ppx Rest per primary Bobby Gonzalez MD * Ru Ortega MD - 11/10/2023 2:49 PM EDT Subjective Daryn Shah is a 77 y.o. female on hospital day 1 with no new events. Continues to have some back pain. Pain meds do help. Objective Exam Vitals: 11/09/23 2342 11/10/23 0358 11/10/23 0850 11/10/23 1324 BP: 128/58 108/61 120/66 133/65 Pulse: 62 59 58 68 Resp: 18 18 16 18 Temp: 36.4 C (97.5 F) 36.5 C (97.7 F) 36.6 C (97.9 F) 36.6 C (97.9 F) TempSrc: SpO2: 95% 96% 95% 98% Weight: Height: Intake/Output last 3 shifts: I/O last 3 completed shifts: In: 50 (0.5 mL/kg) [IV Piggyback:50] Out: 1375 (14.5 mL/kg) [Urine:1375 (0.4 mL/kg/hr)] Weight: 94.6 kg Physical Exam Vitals reviewed. Constitutional: General: She is not in acute distress. Appearance: She is obese. She is not ill-appearing, toxic-appearing or diaphoretic. Comments: Very pleasant HENT: Head: Normocephalic and atraumatic. Cardiovascular: Rate and Rhythm: Normal rate. Rhythm irregular. Pulses: Normal pulses. Heart sounds: No murmur heard. No friction rub. No gallop. Pulmonary: Effort: Pulmonary effort is normal. Breath sounds: Normal breath sounds. No wheezing, rhonchi or rales. Abdominal: General: Bowel sounds are normal. There is no distension. Palpations: Abdomen is soft. Tenderness: There is no abdominal tenderness. There is no guarding or rebound. Musculoskeletal: Comments: Trace bilateral lower extremity edema with scarring from old wounds that are now well-healed and hyperpigmentation Skin: General: Skin is warm and dry. Neurological: General: No focal deficit present. Mental Status: She is alert and oriented to person, place, and time. Psychiatric: Mood and Affect: Mood normal. Behavior: Behavior normal. Medications atenolol, 50 mg, oral, BID cholecalciferol, 2,000 Units, oral, Daily docusate sodium, 100 mg, oral, BID insulin lispro, 0-10 Units, subcutaneous, Before meals & nightly piperacillin-tazobactam, 3.375 g, intravenous, q6h polyethylene glycol, 17 g, oral, Daily [Held by provider] rivaroxaban, 20 mg, oral, Daily rosuvastatin, 10 mg, oral, Nightly vancomycin, 1,250 mg, intravenous, q24h venlafaxine XR, 75 mg, oral, Daily PRN medications: acetaminophen, dextrose, dextrose, glucagon, ipratropium- albuteroL, oxyCODONE, vancomycin Labs All new labs reviewed: some of the basic labs as follows - Results from last 7 days Lab Units 11/09/23 0303 11/08/23 0523 11/07/23 0422 11/06/23 0513 WBC AUTO x10*3/uL 8.8 7.8 7.8 10.8 HEMOGLOBIN g/dL 10.8* 10.3* 9.9* 11.6* HEMATOCRIT % 34.5* 33.3* 32.4* 37.0 PLATELETS AUTO x10*3/uL 263 228 246 353 NEUTROS PCT AUTO % 54.6 -- -- 60.0 LYMPHS PCT AUTO % 34.8 -- -- 28.8 MONOS PCT AUTO % 7.6 -- -- 9.4 EOS PCT AUTO % 1.8 -- -- 0.8 Results from last 72 hours Lab Units 11/09/23 0303 11/08/23 0523 SODIUM mmol/L 132* -- POTASSIUM mmol/L 3.7 -- CHLORIDE mmol/L 96* -- CO2 mmol/L 25 -- BUN mg/dL 14 -- CREATININE mg/dL 0.80 0.87 Results from last 72 hours Lab Units 11/09/23 0303 ALK PHOS U/L 134 AST U/L 22 ALT U/L 12 BILIRUBIN TOTAL mg/dL 0.4 ALBUMIN g/dL 2.8* PROTEIN TOTAL g/dL 5.8* Results from last 72 hours Lab Units 11/09/23 0303 GLUCOSE mg/dL 115* Results from last 72 hours Lab Units 11/09/23 0339 LEUKOCYTES U NEGATIVE NITRITE U NEGATIVE BLOOD UR NEGATIVE No results found for: TR1 Lab Results Component Value Date URINECULTURE (A) 11/06/2023 Multiple organisms present, probable contamination. Repeat culture if clinically indicated. BLOODCULT No growth at 1 day 11/09/2023 BLOODCULT No growth at 1 day 11/09/2023 BLOODCULT No growth at 4 days - FINAL REPORT 11/06/2023 BLOODCULT No growth at 4 days - FINAL REPORT 11/06/2023 Imaging ECG 12 lead Atrial fibrillation with premature ventricular or aberrantly conducted complexes Low voltage QRS Left anterior fascicular block ST & T wave abnormality, consider lateral ischemia Abnormal ECG When compared with ECG of 10-OCT-2023 01:16, No significant change was found See ED provider note for full interpretation and clinical correlation Confirmed by Sophie Florian ([id number]) on 11/06/2023 8:58:45 PM MR lumbar spine w and wo IV contrast Narrative: Interpreted By: Lynda Bal, STUDY: MRI of the lumbar spine without IV contrast; 11/06/2023 12:58 pm INDICATION: Signs/Symptoms:Abnormal thoracic CT scan, cancer staging. COMPARISON: None. ACCESSION NUMBER(S): [id number] ORDERING CLINICIAN: VERA HUANG TECHNIQUE: Sagittal and axial STIR and T1-weighted MRI images of the lumbar spine were acquired using a spondylolysis protocol. 20 mL Dotarem injected intravenously. Sagittal and axial T1 postcontrast images were performed. FINDINGS: For counting purposes the last lumbarized vertebral body is labeled L5. Alignment and vertebral body heights are maintained. Mild heterogeneous bone marrow signal without a focal lesion on the STIR sequence is nonspecific. T1 and T2 hyperintense lesion within the L4 vertebral body is compatible with a hemangioma. There is desiccated disc signal throughout the lower thoracic and lumbar spine. There is osseous fusion across the disc space at L4-L5. The conus terminates at L1. Paraspinal soft tissues are unremarkable. Fatty atrophy of the lower paraspinal muscles. Evaluation by level: T12-L1: Disc bulge and facet arthrosis. No spinal canal stenosis. Mild neural foraminal stenosis. L1-L2: Disc bulge and facet arthrosis. Mild spinal canal stenosis. Mild neural foraminal stenosis. L2-L3: Disc bulge, facet arthrosis and ligamentum flavum thickening. Moderate spinal canal stenosis, narrowing of the subarticular recess and [id number] bilateral neural foraminal stenosis. L3-L4: Disc bulge, facet arthrosis and ligamentum flavum thickening. Severe spinal canal stenosis. Moderate bilateral neural foraminal stenosis. L4-L5: Disc bulge, facet arthrosis and ligamentum flavum thickening. Moderate to severe spinal canal and neural foraminal stenosis. L5-S1: Disc bulge and facet arthrosis. No spinal canal stenosis. Moderate bilateral neural foraminal stenosis. Impression: Multilevel degenerative disc disease and facet arthrosis most pronounced at L3-L4 with severe spinal canal and moderate bilateral neural foraminal stenosis. Mildly heterogeneous bone marrow signal is nonspecific. There is a hemangioma within the L4 vertebral body. Otherwise no focal lesion within the lumbar spine. I personally reviewed the images/study and I agree with the findings as stated. This study was interpreted at [place], [place]. MACRO: None Signed by: Lynda Bal 11/06/2023 1:29 PM Dictation workstation: [id number] MR thoracic spine w and wo IV contrast Narrative: Interpreted By: Lynda Bal, STUDY: MR THORACIC SPINE W AND WO IV CONTRAST; 11/06/2023 12:58 pm INDICATION: Signs/Symptoms:Abnormal thoracic CT scan, cancer staging. COMPARISON: None. ACCESSION NUMBER(S): [id number] ORDERING CLINICIAN: VERA HUANG TECHNIQUE: Sagittal T1, T2, STIR and axial T2 and T1 weighted MR images of the thoracic spine were obtained. FINDINGS: Counting was performed from the C2 vertebral body on the integrated logistics programs director image. Alignment: There is slightly exaggerated thoracic kyphosis. Alignment is otherwise maintained. Vertebrae/Intervertebral Discs: Vertebral body heights are maintained. There is diffuse T1 hypointense STIR hyperintense signal throughout the T6, T7 in the majority of the T8 vertebral bodies. The bone marrow is otherwise mildly heterogeneous without a focal lesion on the STIR sequence. There is increased signal within the disc spaces at T6-T7 and T7-T8 with irregularity of the endplates, T6-T7> T7-T8. Otherwise there is desiccated disc signal throughout the thoracic spine with mild degenerative endplate changes and [id number] disc height loss. There is prevertebral infiltration extending from T6 through T8. There is paraspinal infiltration at T6 through T8. There are multiple small subcentimeter rim enhancing collections within the paraspinal soft tissues suggesting small at the T6 through T8 levels. There is greater than expected enhancement within the epidural space extending from T6 through T9 suggesting reactive change and or phlegmon. This results in severe spinal canal stenosis at T6 through T8. Cord: Questionable increased cord signal on the STIR sequence at T6 through T8. The thoracic cord is otherwise unremarkable. C7-T1 through T4-T5: Degenerative changes without significant spinal canal stenosis and varying degrees of mild neural foraminal narrowing. T5-T6: Degenerative changes and prominent posterior epidural fat results in moderate spinal canal and neural foraminal stenosis. At T6-T7 and T7-T8 there are degenerative changes as well as enhancement within the epidural space resulting in severe spinal canal stenosis. Moderate neural foraminal narrowing at T6-T7 and T7-T8. T8-T9: Degenerative changes with moderate to severe spinal canal and wmwy-mt-hdzifcmg bilateral neural foraminal stenosis. T9-T10, T10-T11: Degenerative changes without significant spinal canal or neural foraminal stenosis. T11-T12: Disc bulge, facet arthrosis and ligamentum flavum thickening. Moderate to severe spinal canal and neural foraminal stenosis. T12-L1: Disc bulge and facet arthrosis. No spinal canal stenosis. Mild neural foraminal stenosis. There is a subcentimeter T2 hyperintense nodule within the right thyroid lobe. Impression: There is abnormal signal within the disc spaces at T6-T7 and T7-T8 as well as abnormal signal throughout the T6 and T7 vertebral bodies and the majority of the T8 vertebral body suggesting discitis osteomyelitis at these levels. There is prevertebral and paraspinal infiltration with multiple subcentimeter T1 hypointense and rim enhancing collections within the paraspinal soft tissues suggesting small abscesses. There is greater than expected enhancement within the epidural space extending from T6 through T9 suggesting phlegmon. This results in severe spinal canal stenosis at these levels. Question subtle increased cord signal on the STIR sequence. MACRO: None Signed by: Lynda Bal 11/06/2023 1:24 PM Dictation workstation: [id number] MR cervical spine w and wo IV contrast Narrative: Interpreted By: Lynda Bal, STUDY: MR CERVICAL SPINE W AND WO IV CONTRAST; 11/06/2023 12:58 pm INDICATION: Signs/Symptoms:Abnormal CT thoracic spine, Cancer staging. COMPARISON: None. ACCESSION NUMBER(S): [id number] ORDERING CLINICIAN: VERA HUANG TECHNIQUE: Sagittal T1, T2, STIR, axial T1 and axial T2 weighted images were acquired through the cervical spine. FINDINGS: The examination is markedly degraded by patient motion artifact. Alignment: The vertebral alignment is within normal limits. Vertebrae/Intervertebral Discs: The vertebral bodies demonstrate expected height. The marrow signal is within normal limits given patient motion artifact. No focal edema is noted on the STIR sequence within the bone marrow. There is desiccated disc signal throughout the cervical spine. Varying degrees of cxjx-dv-ynrybilh disc height loss. Cord: Within the limitation of motion artifact no abnormal signal or enhancement within the cervical cord. C1-C2: The cervicomedullary junction appears unremarkable. No spinal canal stenosis. C2-C3: No spinal canal or neural foraminal stenosis. C3-C4: Disc osteophyte complex, uncovertebral joint hypertrophy and facet arthrosis. Mild spinal canal stenosis. Moderate bilateral neural foraminal stenosis. C4-C5: Disc osteophyte complex, uncovertebral joint hypertrophy and facet arthrosis. Moderate to severe spinal canal stenosis and moderate to severe bilateral neural foraminal stenosis. C5-C6: Disc osteophyte complex, uncovertebral joint hypertrophy and facet arthrosis. Moderate to severe spinal canal and neural foraminal stenosis. C6-C7: Disc osteophyte complex uncovertebral joint hypertrophy and facet arthrosis. Moderate spinal canal and neural foraminal stenosis. C7-T1: Disc osteophyte complex and uncovertebral joint hypertrophy. No spinal canal stenosis. Moderate bilateral neural foraminal stenosis. Prevertebral soft tissues are not thickened. Impression: The examination is moderately degraded by patient motion artifact. Within this limitation, no evidence of focal osseous metastatic disease. No definite abnormal signal or enhancement within the cervical cord. Multilevel degenerative changes as detailed above. MACRO: None Signed by: Lynda Bal 11/06/2023 1:10 PM Dictation workstation: [id number] CT chest abdomen pelvis wo IV contrast Narrative: STUDY: CT Chest, Abdomen, and Pelvis without IV Contrast; 11/06/2023, 0805 INDICATION: Abnormal thoracic spine CT. COMPARISON: CT thoracic 11/06/2023, XR chest 10/09/2023, CT abd 01/05/2020. ACCESSION NUMBER(S): [id number] ORDERING CLINICIAN: VERA HUANG TECHNIQUE: CT of the chest, abdomen, and pelvis was performed. Contiguous axial images were obtained at 3 mm slice thickness through the chest, abdomen, and pelvis. Coronal and sagittal reconstructions at 3 mm slice thickness were performed. No intravenous contrast was administered. FINDINGS: Please note that the evaluation of vessels, lymph nodes and organs is limited without intravenous contrast. There is minimal atelectasis in the left lower lobe of the lung. No consolidative infiltrate is noted. There are no pleural effusions. No filling defects are seen within the trachea or mainstem bronchi. Multiple nodules are visualized. The largest nodule is seen in the lingula abutting the vessels, measured at 1.1 x 1.0 cm(Series 3, Image 107). There is an adjacent nodule in the right middle lobe, measured at 7 x 7 mm(Series 3, Image 112). There is a 5 x 5 mm nodule in the lateral aspect of the right upper lobe(Series 3, Image 41). There is no evidence of a pneumothorax. Evaluation for hilar adenopathy is limited due to lack of IV contrast. Subcentimeter lymph nodes are seen in the mediastinum. There is no pericardial effusion. Coronary artery calcifications are present. There is no evidence of aneurysmal dilatation of the ascending aorta, aortic arch, or descending thoracic aorta. Degenerative changes are seen throughout the thoracic spine. There are prominent endplate changes seen at T6-7 and T7-8, suspicious for discitis/osteomyelitis. There is prominent prevertebral soft tissue swelling noted at these levels, suggestive of overlying phlegmonous changes. Evaluation for an abscess is limited due to lack of IV contrast. Evaluation of the abdominal viscera is suboptimal due to lack of IV contrast. No acute findings are seen within the unenhanced liver, spleen, pancreas, or adrenal glands. There is a nonobstructing 2 mm stone in the midpole of the left kidney. No hydronephrosis is noted. No bladder calculi are noted. No dilated loops of small bowel or colon are visualized. There is no evidence for free intraperitoneal air. The appendix is normal in appearance. No enlarged lymph nodes are seen within the pelvic sidewalls, iliac chains, or retroperitoneum. There is no evidence of aneurysmal dilatation of the abdominal aorta. No prominent edema is seen within the psoas musculature. Degenerative changes are seen throughout the lumbar spine. There are calcified uterine fibroids. Impression: CHEST: 1. Endplate changes involving T6-7 and T7-8, indicative of discitis/osteomyelitis. Prominent prevertebral soft tissue swelling noted, indicative of phlegmonous changes. Evaluation for an abscess is limited due to lack of IV contrast. 2. Multiple right lung nodules. The largest is measured at 1.1 x 1.0 cm in the right middle lobe. Malignancy cannot be excluded. Follow-up with PET CT scan is recommended. 3. Coronary artery calcifications. ABDOMEN/PELVIS: 1. Evaluation for an abscess is limited due to lack of IV contrast. 2. Left-sided nephrolithiasis, with no evidence of hydronephrosis. 3. Calcified uterine fibroids. Signed by Mychal Chavez MD CT thoracic spine wo IV contrast Narrative: STUDY: CT Thoracic Spine without IV Contrast; 11/06/2023 at 5:45 AM. INDICATION: Thoracic back pain. COMPARISON: None available. ACCESSION NUMBER(S): [id number] ORDERING CLINICIAN: SKINNY [employer]EL TECHNIQUE: CT of the thoracic spine was performed without intravenous or intrathecal contrast. Sagittal and coronal reconstructions were generated. Automated mA/kV exposure control was utilized and patient examination was performed in strict accordance with principles of ALARA. FINDINGS: What I see of the mediastinum demonstrates vascular calcifications of the great vessels and of the aortic arch without evidence of aneurysmal dilatation. Coronary artery calcifications are noted ---no gross evidence of pericardial effusion. The ascending aorta appears to be normal---- extensive vessel calcifications of the abdomen are noted. Esophageal bed appears to be normal. What I see of the adrenal glands and upper kidneys normal. There are some calcifications at the level of the left kidney measuring 2 to 3 mm that exist in a nonobstructive fashion with nephrolithiasis. Kidney atrophic changes are identified. Pancreatic bed shows fatty replacement of the pancreas ----the body of the pancreas appears to be somewhat bulbous in appearance. Recommend pancreatic CT examination with contrast The lung parenchyma is abnormal. There are scattered pulmonary nodules --- one exists in the right upper lobe measuring 0.52 cm seen on slice 172 of 729 ---a larger pulmonary nodules/lung mass exists on slice 450 / 279---this has spiculated margins measuring 1.03 cm. Some right lung scarring and fibrotic changes are identified. There is a small granuloma that exists in the right upper lobe on slice 347 of 729. Small pulmonary nodule in the left lower lobe seen on slice 479/ 729. Small granuloma in the right upper lobe measures 0.2 cm seen on slice 134 / 729. Not all of the lung parenchyma is included in our examination ---may want to correlate with full chest CT at some point. . No focal area of airspace disease. The alignment of the thoracic vertebral bodies is normal. Widespread degenerative disc changes. Various thoracic vertebral bodies demonstrate areas of low density scattered throughout the thoracic region. Cannot exclude metastatic thoracic spine lesions given this appearance. Small sclerotic focus also exists in the superior endplate of C7---- question small bone sclerotic metastasis vs. bone island. In addition to the extensive degenerative changes and osteophytes----- there appears to be dissolution and destructive changes involving the endplates of T6-7 and T7-8 with surrounding soft tissue edematous changes at this level. The endplates of T6 T7 T8 appear to be irregularly marginated and ill-defined. This is concerning for areas of discitis and again the soft tissue surrounding may also be inflammatory in origin. Consider bacterial infection/ atypical infection such as tuberculosis also would have to be considered. Correlate with fever, sedimentation rate etc. No distinct evidence of focal rib abnormality on our limited view of the ribs. Some of this abnormal presumed inflammatory soft tissue that envelopes T6-7 and 8 does appear to abut the posterior aspect of the descending aorta. No definite evidence of abnormal soft tissue density of the thoracic canal and certainly correlation with MRI is recommended to assess thecal sac and to better assess endplate destructive changes and surrounding soft tissue at T6,7,8. The MRI will also a evaluation of the multifocal small low-density lesions involving the thoracic spine. Spinous processes appear to be normal. No cheryle evidence of bony destructive change involving the pedicles at the present time. No loss of vertebral body height. Some areas of minimal vacuum phenomenon. The lower thoracic region demonstrates extensive DDD and DJD including vacuum phenomena. Impression: Extensive calcifications of the great vessels Nephrolithiasis suspected Cholecystitis changes Mild bulbous prominence of the body of the pancreas. Recommend CT of the Abdomen with contrast designed to look at the pancreas. Coronary artery calcifications Minimal basilar fibrotic changes of the lungs Multifocal pulmonary nodules of the lungs seen bilaterally in conjunction with granulomatous changes. Certainly could not exclude metastatic disease in the lungs. May want to correlate with a formal chest CT to assess the entire lung parenchyma and certainly correlate with malignancy history. 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 Quite nonspecific but cannot exclude metastatic lesions of the thoracic spine There is endplate destructive changes involving T6-7, T7-8 with some associated surrounding soft tissue concerning for inflammatory discitis with associated bone destructive changes and presumed osteomyelitis.Recommend MRI exam as the next step in the evaluation---no gross canal narrowing. I have discussed this with Skinny Bee at 11/06/2023 6:33AM Signed by Jai Johnson MD No results found for this or any previous visit from the past 1095 days. Encounter Date: 11/06/23 ECG 12 lead Result Value Ventricular Rate 96 QRS Duration 116 QT Interval 354 QTC Calculation(Bazett) 447 R Critz -50 T Critz 125 QRS Count 16 Q Onset 203 T Offset 380 QTC Fredericia 414 Narrative Atrial fibrillation with premature ventricular or aberrantly conducted complexes Low voltage QRS Left anterior fascicular block ST & T wave abnormality, consider lateral ischemia Abnormal ECG When compared with ECG of 10-OCT-2023 01:16, No significant change was found See ED provider note for full interpretation and clinical correlation Confirmed by Sophie Florian ([id number]) on 11/06/2023 8:58:45 PM Assessment and Plan Back pain: Appears consistent with vertebral osteomyelitis/discitis. Overall lower suspicion related to small pulmonary nodules. -Consulting IR for vertebral biopsy. Will send for culture and pathology to rule out mets. May [id number] testing if cultures are negative -Continue vancomycin and Zosyn. Monitor Vanco per protocol -Follow-up blood cultures. So far remain no growth to date -Follow-up neurosurgery recommendation. No plans for OR at this time -Follow-up infectious disease recommendations. Assistance is greatly appreciated -Pain control SIADH: Reportedly chronic issue -Monitor renal function. Labs pending -If we see sodium drop significantly may need to curtail fluid intake Cardiovascular: Hypertension and A-fib. -Continue atenolol -Continue statin -Hold Xarelto in anticipation for vertebral biopsy -Holding Maxide and lisinopril at this time. May be able to resume lisinopril as blood pressure dictates. Lung nodules: -Follow-up vertebral biopsy -Consider outpatient PET scan/pulmonary follow-up Hypomagnesemia: -Repeat magnesium check COPD: Patient denies having ever had COPD or taking inhalers -Can monitor -Incentive spirometry Diabetes mellitus: Patient required 0 units sliding scale yesterday -Continue sliding scale insulin -Diabetic diet Psychiatry: -Continue Effexor DVT prophylaxis Physical therapy/Occupational Therapy when appropriate Ru Ortega MD Of note the above was done with [employer] dictation system. Note was proofread to minimize errors. * Indio Ambrocio PharmD - 11/10/2023 11:23 AM EDT Vancomycin Dosing by Pharmacy- FOLLOW UP Daryn Shah is a 77 y.o. year old female who Pharmacy has been consulted for vancomycin dosing for osteomyelitis/septic arthritis. Based on the patient's indication and renal status this patient is being dosed based on a goal AUC of 400-600. Renal function is currently stable. Current vancomycin dose: 1250 mg given every 24 hours Estimated vancomycin AUC on current dose: 446 mg/L.hr Visit Vitals BP 120/66 Pulse 58 Temp 36.6 C (97.9 F) Resp 16 Lab Results Component Value Date CREATININE 0.80 11/09/2023 CREATININE 0.87 11/08/2023 CREATININE 0.92 11/07/2023 CREATININE 1.12 (H) 11/06/2023 Patient weight is as follows: Vitals: 11/09/23 0230 Weight: 94.6 kg (208 lb 8.9 oz) Cultures: No results found for the encounter in last 14 days. I/O last 3 completed shifts: In: 50 (0.5 mL/kg) [IV Piggyback:50] Out: 1375 (14.5 mL/kg) [Urine:1375 (0.4 mL/kg/hr)] Weight: 94.6 kg I/O during current shift: I/O this shift: In: - Out: 600 [Urine:600] Temp (24hrs), Av.5 C (97.7 F), Min:36.4 C (97.5 F), Max:36.6 C (97.9 F) Assessment/Plan Within goal AUC range. Continue current vancomycin regimen. This dosing regimen is predicted by [employer] to result in the following pharmacokinetic parameters: Regimen: 1250 mg IV every 24 hours. Exposure target: AUC24 (range)400-600 mg/L.hr AUC24,ss: 446 mg/L.hr Probability of AUC24 > 400: 84 % Ctrough,ss: 13.1 mg/L Probability of Ctrough,ss > 20: 0 % Probability of nephrotoxicity (Lodise GIANNA 2008): 8 % The next level will be obtained on 11/12 at 1st am labs. May be obtained sooner if clinically indicated. Will continue to monitor renal function daily while on vancomycin and order serum creatinine at least every 48 hours if not already ordered. Follow for continued vancomycin needs, clinical response, and signs/symptoms of toxicity. Indio Ambrocio PharmD * Thomas Hoffman MD - 11/10/2023 10:24 AM EDT Progress Note, 11/10/2023: History of Present Illness Daryn Shah is a 77 y.o. female currently on day 1 of admission for Interval History / Significant changes No acute events overnight. Continuing with IV vanc and pip-tazo per ID recs. Started Lovenox for DVT prophylaxis (since Xarelto on hold). Subjective She complains of back pain, about 7/10, which is relieved with current pain control regimen. Objective Vitals Visit Vitals BP 133/65 Pulse 68 Temp 36.6 C (97.9 F) Resp 18 I/O Intake/Output Summary (Last 24 hours) at 11/10/2023 1449 Last data filed at 11/10/2023 0850 Gross per 24 hour Intake -- Output 925 ml Net -925 ml Physical Exam Physical Exam Labs CBC: Results from last 7 days Lab Units 11/09/23 03011/08/2352211/07/23 0422 WBC AUTO x10*3/uL 8.8 7.8 7.8 HEMOGLOBIN g/dL 10.8* 10.3* 9.9* PLATELETS AUTO x10*3/uL 263 228 246 BMP: Results from last 7 days Lab Units 11/09/23 03011/08/23 0511/07/23 0422 11/06/23 0513 SODIUM mmol/L 132* -- 133* 133* POTASSIUM mmol/L 3.7 -- 3.4* 3.8 CHLORIDE mmol/L 96* -- 100 96* CO2 mmol/L 25 -- 26 26 BUN mg/dL 14 -- 21 29* CREATININE mg/dL 0.80 < > 0.92 1.12* GLUCOSE mg/dL 115* -- 116* 153* < > = values in this interval not displayed. LFT: Results from last 7 days Lab Units 11/09/23 03011/06/23 0513 AST U/L 22 14 ALT U/L 12 10 ALK PHOS U/L 134 133 BILIRUBIN TOTAL mg/dL 0.4 0.5 Cardiac: Results from last 7 days Lab Units 11/08/23 0511/06/23 0513 TROPHS ng/L -- 9 BNP pg/mL 484* -- Coag: ABG: . UA: Results from last 7 days Lab Units 11/09/23 0339 11/06/23 0537 COLOR U Light-Yellow Yellow PH U 5.5 5.5 SPEC GRAV UR 1.011 1.029 PROTEIN U mg/dL NEGATIVE 20 (TRACE) BLOOD UR NEGATIVE 0.1 (1+)* NITRITE U NEGATIVE NEGATIVE WBC UR /HPF -- 1-5 BACTERIA UR /HPF -- 1+* Last EKG Encounter Date: 11/06/23 ECG 12 lead Result Value Ventricular Rate 96 QRS Duration 116 QT Interval 354 QTC Calculation(Bazett) 447 R Critz -50 T Critz 125 QRS Count 16 Q Onset 203 T Offset 380 QTC Fredericia 414 Narrative Atrial fibrillation with premature ventricular or aberrantly conducted complexes Low voltage QRS Left anterior fascicular block ST & T wave abnormality, consider lateral ischemia Abnormal ECG When compared with ECG of 10-OCT-2023 01:16, No significant change was found See ED provider note for full interpretation and clinical correlation Confirmed by Sophie Florian ([id number]) on 11/06/2023 8:58:45 PM Imaging MR lumbar spine w and wo IV contrast Result Date: 11/06/2023 Multilevel degenerative disc disease and facet arthrosis most pronounced at L3- L4 with severe spinal canal and moderate bilateral neural foraminal stenosis. Mildly heterogeneous bone marrow signal isnonspecific. There is a hemangioma within the L4 vertebral body. Otherwise no focal lesion within the lumbar spine. I personally reviewed the images/study and I agree with the findings as stated. This study was interpreted at [facility], [place], [place]. MACRO: None Signed by: Lynda Bal 11/06/2023 1:29 PM Dictation workstation: [id number] MR thoracic spine w and wo IV contrast Result Date: 11/06/2023 There is abnormal signal within the disc spaces at T6-T7 and T7-T8 as well as abnormal signal throughout the T6 and T7 vertebral bodies and the majority of the T8 vertebral body suggesting discitis osteomyelitis at these levels. There is prevertebral and paraspinal infiltration with multiple subcentimeter T1 hypointense and rim enhancing collections within the paraspinal soft tissues suggesting small abscesses. There is greater than expected enhancement within the epidural space extending from T6 through T9 suggesting phlegmon. This results in severe spinal canal stenosis at these levels. Question subtle increased cord signal on the STIR sequence. MACRO: None Signed by: Lynda Bal 11/06/2023 1:24 PM Dictation workstation: [id number] MR cervical spine w and wo IV contrast Result Date: 11/06/2023 The examination is moderately degraded by patient motion artifact. Within this limitation, no evidence of focal osseous metastatic disease. No definite abnormal signal or enhancement within the cervical cord. Multilevel degenerative changes as detailed above. MACRO: None Signed by: Lynda Bal 11/06/2023 1:10 PM Dictation workstation: [id number] CT chest abdomen pelvis wo IV contrast Result Date: 11/06/2023 CHEST: 1. Endplate changes involving T6-7 and T7-8, indicative of discitis/osteomyelitis. Prominentprevertebral soft tissue swelling noted, indicative of phlegmonous changes. Evaluation for an abscess is limited due to lack of IV contrast. 2. Multiple right lung nodules. The largest is measured at 1.1 x 1.0 cm in the right middle lobe. Malignancy cannot be excluded. Follow-up with PET CT scan isrecommended. 3. Coronary artery calcifications. ABDOMEN/PELVIS: 1. Evaluation for an abscess is limited due to lack of IV contrast. 2. Left-sided nephrolithiasis, with no evidence of hydronephrosis. 3. Calcified uterine fibroids. Signed by Mychal Chavez MD CT thoracic spine wo IV contrast Result Date: 11/06/2023 Extensive calcifications of the great vessels Nephrolithiasis suspected Cholecystitis changes Mild bulbous prominence of the body of the pancreas. Recommend CT of the Abdomen with contrast designed to look at the pancreas. Coronary artery calcifications Minimal basilar fibrotic changes of the lungs Multifocal pulmonary nodules of the lungs seen bilaterally in conjunction with granulomatous changes. Certainly could not exclude metastatic disease in the lungs. May want to correlate with a formal chest CT to assess the entire lung parenchyma and certainly correlate with malignancy history. 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 Quite nonspecific but cannot exclude metastatic lesions of the thoracic spine There is endplate destructive changes involving T6-7, T7-8 with some associated surrounding soft tissue concerning for inflammatory discitis with associated bone destructive changes and presumed osteomyelitis.Recommend MRI exam as the next step in the evaluation---no gross canal narrowing. I have discussed this with Skinny Bee at 11/06/2023 6:33AMSigned by Jai Johnson MD Inpatient Medications Scheduled medications atenolol, 50 mg, oral, BID cholecalciferol, 2,000 Units, oral, Daily docusate sodium, 100 mg, oral, BID insulin lispro, 0-10 Units, subcutaneous, Before meals & nightly piperacillin-tazobactam, 3.375 g, intravenous, q6h polyethylene glycol, 17 g, oral, Daily [Held by provider] rivaroxaban, 20 mg, oral, Daily rosuvastatin, 10 mg, oral, Nightly vancomycin, 1,250 mg, intravenous, q24h venlafaxine XR, 75 mg, oral, Daily Continuous medications PRN medications PRN medications: acetaminophen, dextrose, dextrose, glucagon, ipratropium- albuteroL, oxyCODONE, vancomycin Assessment & Plan Daryn Shah is a 77 y.o. female Ms Shah is a 77 y.o F w/ PMHx of Afib (on Xeralto), COPD (?), DMII (A1c 7.2% 03/01 and Cellulitis on day 1 of admission as a transfer from [facility] to [facility] for work up of newly found multiple large lung nodules c/f metastatic disease. MRI thoracic spine concerning for T6- T8 abnormal signaling suggestive of discitis/osteomyelitis, small abscess at T1 and epidural enhancement extending from T6-T9 suggestive of phlegmon. Patient HDS, and on RA. Started on Vanc + Zosyn and continuing per ID recs. IR consulted, possible biopsy on Saturday 11/11. Principal Problem: #Discitis, unspecified, thoracic region #T6-T8 C/f Discitis/Osteomyelitis #Phlegmon T6-T9 #Back Pain - IR following for vertebral biopsy. Done: Cultures sent Plan (w/ ID recs): C/w IV vanc, dosed w/ pharmacy C/w IV pip-tazo 3.375gm q6H Follow up IR biopsy plan (Sunday) and blood culture Pain control #SIADH - Chronic problem. C/f paraneoplastic. Plan: Monitor RFP Holding Maxide #Hypertension #Afib - c/w atenolol for rate control - c/w statin - holding Xarelto for potential biopsy - Holding Maxide and Lisinopril #Anxiety and Depression - c/w Effexor. #COPD - Denies shortness of breath, cough and sputum production - Duonebs and Albuterol PRN - Incentive spirometry #DM II -A1c 7.2% -Home regimen: Dulaglutide 3 mg weekly injections -SSI #2 -Hypoglycemia protocol Fluids: PRN Electrolytes: PRN Nutrition: Adult diet Cardiac; 70 gm fat; 2 - 3 grams Sodium Access: PRN DVT prophylaxis: Lovenox Code Status: DNR and No Intubation (Confirmed on admission) Emergency Contact / NOK: Extended Emergency Contact Information Primary Emergency Contact: BEVERLY SHAH Address: [address] [place] [address] [facility] Mobile Relation: Son Preferred language: [place] [employer] Clerk needed? No Secondary Emergency Contact: Rissa SHAH Address: [address] [place] [address] [facility] Mobile Relation: Son Preferred language: [place] [employer] Clerk needed? No Thomas Hoffman MD, MSc Internal Medicine PGY-1 11/10/2023' Associated attestation - Ru Ortega MD - 11/14/2023 3:01 PM EDT I saw and evaluated the patient. I personally obtained the pickering and critical portions of the historyand physical exam or was physically present for pickering and critical portions performed by the resident/student. I reviewed the resident/student's documentation and discussed the patient with the resident /student. I agree with the resident/student's medical decision making as documented in the note with the exception/additions in my note * Bobby Gonzalez MD - 11/10/2023 9:07 AM EDT Daryn Shah is a 77 y.o. female on day 1 of admission presenting with Discitis, unspecified, thoracic region. Subjective Patient c/o back pain Objective Physical Exam AOx3 RUE D5 B5 T5 HG/IO 5 RLE HF5 KE5 DF/PF 5 LUE D5 B5 T5 HG/IO 5 LLE HF5 KE4 (chronic) DF/PF 5 SILT Last Recorded Vitals Blood pressure 120/66, pulse 58, temperature 36.6 C (97.9 F), resp. rate 16, height 1.702 m (5' 7.01), weight 94.6 kg (208 lb 8.9 oz), SpO2 95%. Intake/Output last 3 Shifts: I/O last 3 completed shifts: In: 50 (0.5 mL/kg) [IV Piggyback:50] Out: 1375 (14.5 mL/kg) [Urine:1375 (0.4 mL/kg/hr)] Weight: 94.6 kg Relevant Results Lab Results Component Value Date WBC 8.8 11/09/2023 HGB 10.8 (L) 11/09/2023 HCT 34.5 (L) 11/09/2023 MCV 85 11/09/2023 PLT 263 11/09/2023 Lab Results Component Value Date GLUCOSE 115 (H) 11/09/2023 CALCIUM 8.4 (L) 11/09/2023 NA 132 (L) 11/09/2023 K 3.7 11/09/2023 CO2 25 11/09/2023 CL 96 (L) 11/09/2023 BUN 14 11/09/2023 CREATININE 0.80 11/09/2023 Assessment/Plan Principal Problem: Discitis, unspecified, thoracic region Daryn is a 77 y.o. female with h/o Afib on Xarelto, HTN, HLD, T2DM, T2DM, SIADH, COPD, anxiety p/w back pain x 3wks, bedbound at baseline. MRI TS T6-9 discitis/OM, pre-vertebral phlegmon, CT CAP multiple R lung nodules Naff primary ID recs IR recs -poss bx Mon 11/11 Antibiotic management per ID and primary team Poss PET as OP, will follow up Ok for DVT ppx Rest per primary Bobby Gonzalez MD * Sebastian Crow, PharmD - 11/09/2023 11:24 AM EDT Pharmacy Admission Order Reconciliation Review Daryn Shah is a 77 y.o. female admitted for Discitis, unspecified, thoracic region. Pharmacy reviewed the patient's unreconciled admission medications. Prior to admission medications that were reviewed and acted on by the pharmacist include: Cinnamon These medications have been reconciled. Any other unreconcilied medications have been addressed and will be ordered or held by the patient's medical team. Medications addressed by the pharmacist may be added or changed by the patient's medical team at any time. Sebastian Crow PharmD Transitions of Care Pharmacist [facility] Please reach out via Secure Chat for questions * Tarcy Thompson, [facility] - 11/09/2023 10:52 AM EDT Pharmacy Medication History Review Daryn Shah is a 77 y.o. female admitted for Discitis, unspecified, thoracic region. Pharmacy reviewed the patient's [id number] medications and allergies for accuracy. The list below reflects the updated ARABIC LINGUIST list. Comments regarding how patient may be taking medications differently can be found in the Admit Orders Activity Prior to Admission Medications Prescriptions Last Dose Informant atenolol (Tenormin) 100 mg tablet Self Sig: Take 0.5 tablets (50 mg) by mouth 2 times a day. baclofen (Lioresal) 10 mg tablet Self Sig: Take 1 tablet (10 mg) by mouth 2 times a day. Patient not taking cholecalciferol (Vitamin D-3) 25 MCG (1000 UT) tablet Self Sig: Take 2 tablets (2,000 Units) by mouth once daily. cinnamon 500 mg capsule Self Sig: Take 1 capsule (500 mg) by mouth twice a day. dulaglutide 3 mg/0.5 mL pen injector 10/27/2023 Self Sig: Inject 3 mg under the skin 1 (one) time per week. Takes on Sunday, missed dose 11/03/23 ferrous gluconate 324 (38 Fe) mg tablet Self Sig: Take 1 tablet (38 mg of iron) by mouth once daily with breakfast. lisinopril 5 mg tablet Self Sig: Take 1 tablet (5 mg) by mouth once daily. magnesium oxide (Mag-Ox) 200 mg magnesium tablet Self Sig: Take 1 tablet (200 mg) by mouth once daily. multivit-minerals/folic acid (ADULT MULTIVITAMIN GUMMIES ORAL) Self Sig: Take 1 each by mouth once daily. potassium chloride ER (Micro-K) 10 mEq ER capsule Self Sig: Take 1 capsule (10 mEq) by mouth once daily. rivaroxaban (Xarelto) 20 mg tablet Self Sig: Take 1 tablet (20 mg) by mouth once daily. rosuvastatin (Crestor) 10 mg tablet Self Sig: Take 1 tablet (10 mg) by mouth once daily at bedtime. triamterene-hydrochlorothiazid (Maxzide-25) 37.5-25 mg tablet Self Sig: Take 1 tablet by mouth once daily. venlafaxine XR (Effexor-XR) 75 mg 24 hr capsule Self Sig: Take 1 capsule (75 mg) by mouth once daily. Facility-Administered Medications: None The list below reflects the updated allergy list. Please review each documented allergy for additional clarification and justification. Allergies Reviewed by Erinn Raygoza RN on 11/09/2023 No Known Allergies Patient accepts M2B at discharge. Pharmacy has been updated to [facility]. Sources used to confirm home medication list include: Patient interview, OARRS, Care Everywhere, medication fill history, Discharge Summary 10/15/23. Medications added: None Medications modified: None Medications to be removed: Baclofen Below are additional concerns with the patient's ARABIC LINGUIST list. None to note Tracy Thompson [facility] Transitions of Care Pharmacist [facility] Please reach out via Secure Chat for questions, or if no response call [employer] or [employer] documented in this [facility] Work Phone: [phone] Miscellaneous Notes* Care Plan - Belgica York RN - 11/20/2023 12:17 AM EDT Problem: Skin Goal: Decreased wound size/increased tissue granulation at next dressing change 11/20/2023 0013 by Belgica York RN Outcome: Progressing Flowsheets (Taken 11/15/2023 0649 by Raquel Velasquez LPN) Decreased wound size/increased tissue granulation at next dressing change: Promote sleep for wound healing 11/20/20235 by Belgica York RN Outcome: Progressing Goal: Participates in plan/prevention/treatment measures 11/20/202312 by Belgica York RN Flowsheets (Taken 11/18/202358 by Erinn Raygoza RN) Participates in plan/prevention/treatment measures: Elevate heels 11/20/20235 by Belgica York RN Outcome: Progressing Goal: Prevent/manage excess moisture 11/20/202312 by Belgica York RN Flowsheets (Taken 11/18/202358 by Erinn Raygoza RN) Prevent/manage excess moisture: Moisturize dry skin Monitor for/manage infection if present 11/20/20235 by Belgica York RN Outcome: Progressing Goal: Prevent/minimize sheer/friction injuries 11/20/202312 by Belgica York RN Flowsheets (Taken 11/20/202312) Prevent/minimize sheer/friction injuries: HOB 30 degrees or less Turn/reposition every 2 hours/use positioning/transfer devices 11/20/20235 by Belgica York RN Outcome: Progressing Goal: Promote/optimize nutrition 11/20/202312 by Belgica York RN Flowsheets (Taken 11/20/202312) Promote/optimize nutrition: Monitor/record intake including meals Offer water/supplements/favorite foods 11/20/20235 by Belgica York RN Outcome: Progressing Goal: Promote skin healing 11/20/202312 by Belgica York RN Flowsheets (Taken 11/20/202312) Promote skin healing: Turn/reposition every 2 hours/use positioning/transfer devices Protective dressings over bony prominences 11/20/20235 by Belgica York RN Outcome: Progressing Problem: Pain Goal: Takes deep breaths with improved pain control throughout the shift Outcome: Progressing Goal: Turns in bed with improved pain control throughout the shift Outcome: Progressing Goal: Free from opioid side effects throughout the shift Outcome: Progressing Goal: Free from acute confusion related to pain meds throughout the shift Outcome: Progressing Problem: Pain - Adult Goal: Verbalizes/displays adequate comfort level or baseline comfort level Outcome: Progressing Problem: Safety - Adult Goal: Free from fall injury Outcome: Progressing The patient's goals for the shift include The clinical goals for the shift include Patient will be safe throughout the shift * Care Plan - Belgica York RN - 11/20/2023 12:12 AM EDT The patient's goals for the shift include The clinical goals for the shift include Patient will be safe throughout the shift Problem: Skin Goal: Decreased wound size/increased tissue granulation at next dressing change Outcome: Progressing Goal: Participates in plan/prevention/treatment measures Outcome: Progressing Goal: Prevent/manage excess moisture Outcome: Progressing Goal: Prevent/minimize sheer/friction injuries Outcome: Progressing Goal: Promote/optimize nutrition Outcome: Progressing Goal: Promote skin healing Outcome: Progressing Problem: Pain Goal: Takes deep breaths with improved pain control throughout the shift Outcome: Progressing Goal: Turns in bed with improved pain control throughout the shift Outcome: Progressing Goal: Free from opioid side effects throughout the shift Outcome: Progressing Goal: Free from acute confusion related to pain meds throughout the shift Outcome: Progressing Problem: Pain - Adult Goal: Verbalizes/displays adequate comfort level or baseline comfort level Outcome: Progressing Problem: Safety - Adult Goal: Free from fall injury Outcome: Progressing * Care [place] - Sarah Zepeda RN - 11/18/2023 7:50 AM EDT Problem: Skin Goal: Decreased wound size/increased tissue granulation at next dressing change Outcome: Progressing Goal: Participates in plan/prevention/treatment measures Outcome: Progressing Goal: Prevent/manage excess moisture Outcome: Progressing Goal: Prevent/minimize sheer/friction injuries Outcome: Progressing Goal: Promote/optimize nutrition Outcome: Progressing Goal: Promote skin healing Outcome: Progressing Flowsheets (Taken 11/18/2023 [id number]) Promote skin healing: Turn/reposition every 2 hours/use positioning/transfer devices Protective dressings over bony prominences Problem: Pain Goal: Takes deep breaths with improved pain control throughout the shift Outcome: Progressing Goal: Turns in bed with improved pain control throughout the shift Outcome: Progressing Goal: Free from opioid side effects throughout the shift Outcome: Progressing Goal: Free from acute confusion related to pain meds throughout the shift Outcome: Progressing Problem: Pain - Adult Goal: Verbalizes/displays adequate comfort level or baseline comfort level Outcome: Progressing Problem: Safety - Adult Goal: Free from fall injury Outcome: Progressing Problem: Discharge Planning Goal: Discharge to home or other facility with appropriate resources Outcome: Progressing Problem: Chronic Conditions and Co-morbidities Goal: Patient's chronic conditions and co-morbidity symptoms are monitored and maintained or improved Outcome: Progressing Problem: Diabetes Goal: Achieve decreasing blood glucose levels by end of shift Outcome: Progressing Goal: Increase stability of blood glucose readings by end of shift Outcome: Progressing Goal: Decrease in ketones present in urine by end of shift Outcome: Progressing Goal: Maintain electrolyte levels within acceptable range throughout shift Outcome: Progressing Goal: Maintain glucose levels >70mg/dl to <250mg/dl throughout shift Outcome: Progressing Goal: No changes in neurological exam by end of shift Outcome: Progressing Goal: Learn about and adhere to nutrition recommendations by end of shift Outcome: Progressing Goal: Vital signs within normal range for age by end of shift Outcome: Progressing Goal: Increase self care and/or family involovement by end of shift Outcome: Progressing Goal: Receive DSME education by end of shift Outcome: Progressing The patient's goals for the shift include The clinical goals for the shift include Patient will sit at the edge of the bed 2xs by the end of this shift * Care Plan - Erinn Raygoza RN - 11/18/2023 12:59 AM EDT Problem: Pain - Adult Goal: Verbalizes/displays adequate comfort level or baseline comfort level Outcome: Progressing Problem: Safety - Adult Goal: Free from fall injury Outcome: Progressing Problem: Discharge Planning Goal: Discharge to home or other facility with appropriate resources Outcome: Progressing Problem: Chronic Conditions and Co-morbidities Goal: Patient's chronic conditions and co-morbidity symptoms are monitored and maintained or improved Outcome: Progressing The patient's goals for the shift include The clinical goals for the shift include Will remain HDS during shift * Care Plan - Sarah Zepeda RN - 11/17/2023 3:10 PM EDT Problem: Skin Goal: Decreased wound size/increased tissue granulation at next dressing change Outcome: Progressing Goal: Participates in plan/prevention/treatment measures Outcome: Progressing Goal: Prevent/manage excess moisture Outcome: Progressing Flowsheets (Taken 11/17/2023 1510) Prevent/manage excess moisture: Moisturize dry skin Monitor for/manage infection if present Goal: Prevent/minimize sheer/friction injuries 11/17/2023 151 by Sarah Zepeda RN Outcome: Progressing 11/17/20231509 by Sarah Zepeda RN Flowsheets (Taken 11/17/2023 1510) Prevent/minimize sheer/friction injuries: HOB 30 degrees or less Turn/reposition every 2 hours/use positioning/transfer devices Increase activity/out of bed for meals Goal: Promote/optimize nutrition Outcome: Progressing Goal: Promote skin healing Outcome: Progressing Problem: Pain Goal: Takes deep breaths with improved pain control throughout the shift Outcome: Progressing Goal: Turns in bed with improved pain control throughout the shift Outcome: Progressing Goal: Free from opioid side effects throughout the shift Outcome: Progressing Goal: Free from acute confusion related to pain meds throughout the shift Outcome: Progressing Problem: Pain - Adult Goal: Verbalizes/displays adequate comfort level or baseline comfort level Outcome: Progressing Problem: Safety - Adult Goal: Free from fall injury Outcome: Progressing Problem: Discharge Planning Goal: Discharge to home or other facility with appropriate resources Outcome: Progressing Problem: Chronic Conditions and Co-morbidities Goal: Patient's chronic conditions and co-morbidity symptoms are monitored and maintained or improved Outcome: Progressing Problem: Diabetes Goal: Achieve decreasing blood glucose levels by end of shift Outcome: Progressing Goal: Increase stability of blood glucose readings by end of shift Outcome: Progressing Goal: Decrease in ketones present in urine by end of shift Outcome: Progressing Goal: Maintain electrolyte levels within acceptable range throughout shift Outcome: Progressing Goal: Maintain glucose levels >70mg/dl to <250mg/dl throughout shift Outcome: Progressing Goal: No changes in neurological exam by end of shift Outcome: Progressing Goal: Learn about and adhere to nutrition recommendations by end of shift Outcome: Progressing Goal: Vital signs within normal range for age by end of shift Outcome: Progressing Goal: Increase self care and/or family involovement by end of shift Outcome: Progressing Goal: Receive DSME education by end of shift Outcome: Progressing The patient's goals for the shift include The clinical goals for the shift include Patient will sit on the edge of the bed 2xs during this shift Patient alert and oriented x 4. Patient complained of back pain, tylenol and 5mg oxycodone administered per MAR order. Patient sat at the edge of the bed for lunch. Magnesium was at 1.47, 2g repleted. Insulin provided based off the sliding scale. Patient repositioned throughout this shift. VSS, safety maintained, call light within reach. Sarah Zepeda RN * Care Plan - Erinn Raygoza RN - 11/17/2023 2:16 AM EDT Problem: Pain - Adult Goal: Verbalizes/displays adequate comfort level or baseline comfort level Outcome: Progressing Flowsheets (Taken 11/17/2023214) Verbalizes/displays adequate comfort level or baseline comfort level: Encourage patient to monitor pain and request assistance Assess pain using appropriate pain scale Administer analgesics based on type and severity of pain and evaluate response Problem: Safety - Adult Goal: Free from fall injury Outcome: Progressing Flowsheets (Taken 11/17/2023214) Free from fall injury: Instruct family/caregiver on patient safety Problem: Discharge Planning Goal: Discharge to home or other facility with appropriate resources Outcome: Progressing Problem: Chronic Conditions and Co-morbidities Goal: Patient's chronic conditions and co-morbidity symptoms are monitored and maintained or improved Outcome: Progressing The patient's goals for the shift include The clinical goals for the shift include Will have pain controlled duriing shift * Care Plan - Bree Cavazos RN - 11/16/2023 5:40 PM EDT Problem: Skin Goal: Decreased wound size/increased tissue granulation at next dressing change Outcome: Progressing Goal: Participates in plan/prevention/treatment measures Outcome: Progressing Goal: Prevent/manage excess moisture Outcome: Progressing Goal: Prevent/minimize sheer/friction injuries Outcome: Progressing Goal: Promote/optimize nutrition Outcome: Progressing Goal: Promote skin healing Outcome: Progressing Problem: Pain Goal: Takes deep breaths with improved pain control throughout the shift Outcome: Progressing Goal: Turns in bed with improved pain control throughout the shift Outcome: Progressing Goal: Free from opioid side effects throughout the shift Outcome: Progressing Goal: Free from acute confusion related to pain meds throughout the shift Outcome: Progressing The patient's goals for the shift include The clinical goals for the shift include Pt will have no complaint of pain throughout the shift * Post-Procedure Note - Michelle Polanco RN - 11/16/2023 5:27 PM EDT Pre-Procedure Checklist: Emergent Line Insertion: No Type of Line to be Placed: PICC Consent Obtained: Yes Emergency Medication Necessary: No Patient Identified with 2 Independent Identifiers: Yes Review of Allergies, Anticoagulation, Relevant Labs, ECG/Telemetry: Yes Risks/Benefits/Alternatives Discussed with Patient/POA/Legal Special Education Associate: Yes Stop Sign on Door: Yes Time Out Performed: Yes Catheter Exchange: No Positioning Checklist: All People, Including Patient, in the Room with Cap and Mask: Yes Fluoroscopy Used to Identify Vessel and Guide Insertion: No Sterile Cover Used: Yes Full Barrier Precautions Followed (Mask, Cap, Gown, Gloves): Yes Hands Washed: Yes Monitors Attached with Sound Alarms On: No Full Body Sterile Drape (Head-to-Toe) Used to Cover Patient: Yes Trendelenburg Position (For IJ and Subclavian): No CHG Skin Prep Used and Allowed to Air Dry to Skin Procedure: Yes Procedure Checklist: Blood Aspirated From All Lumens, All Ports Subsequently Flushed: Yes Catheter Caps Placed on All Lumens; Lumens Clamped: Yes Maintain Guidewire Control Throughout, Ensuring Guidewire Removal: Yes Maintain Sterile Field Throughout Insertion: Yes Catheter Secured: Yes Confirmatory Test of Venous Placement: Non-Pulsatile Blood Post Procedure Checklist: Date and Time Written on Dressing: Yes Sharp and Wire Count and Safe Disposal of all Sharps/Wires: Yes Sterile Dressing Applied Per Protocol: Yes X-ray Ordered or ECG Image: Yes PICC Insertion Details: Size (Fr): 4 Lumen Type: 1 Catheter to Vein Ratio Less Than 50%: Yes Total Length (cm): 48 External Length (cm): 0 Orientation: left Location: Basilic Site Prep: Chlorohexidine; Usual sterile procedure followed Local Anesthetic: Injectable/Subcutaneous Indication: IV ABX Insertion Team Members in the Room: NurseLarissa LPN Initial Extremity Circumference (cm): 41 Insertion Attempts: 1 Patient Tolerance: Tolerated Well, Age Appropriate Comfort Measures: Subcutaneous anesthetic; Verbal Procedure Location: Bedside Safety Measures: Patient specific safety measures addressed with RN Estimated Blood Loss (mL): 0 Vessel Fully Compressible Proximally and Distally to Insertion Site: Yes Brisk Blood Return Obtained and Line Draws Easily: Yes Tip Location: Cavo Atrial Junction Line Confirmation: ECG Lot #: [id number] Hotel Assistant General Manager: Bard PICC Line Exp Date: 02/06/2025 Securement: Stat Lock Post Procedure Checklist: Handoff with RN; Obtain all new IV tubing prior to use; Bed at lowest level and wheels locked; Line discharge information at bedside. Additional Details: Line was inserted using Modified Seldinger's Technique. Placed by: Michelle Polanco RN * Care Plan - Yennifer Chauhan RN - 11/15/2023 9:00 PM EDT The patient's goals for the shift include rest The clinical goals for the shift include pt will sleep throughout the night. Problem: Skin Goal: Prevent/manage excess moisture Outcome: Progressing Flowsheets (Taken 11/16/202329) Prevent/manage excess moisture: Moisturize dry skin Goal: Promote skin healing Outcome: Progressing Flowsheets (Taken 11/16/202329) Promote skin healing: Assess skin/pad under line(s)/device(s) Problem: Pain Goal: Takes deep breaths with improved pain control throughout the shift Outcome: Progressing Goal: Free from acute confusion related to pain meds throughout the shift Outcome: Progressing * Care Plan - Sonya Fine RN - 11/15/2023 7:35 AM EDT The patient's goals for the shift include Increased pain control and increased turns from side to side. * Op Note - Braulio Oneil MD PhD - 11/14/2023 4:40 PM EDT T5-T9 laminectomy for decompression (B) Operative Note Date: 11/09/2023 - 11/14/2023 OR Location: [facility] OR Name: Daryn hSah, : 1945, Age: 77 y.o., , Sex: female Diagnosis Pre-op Diagnosis * Discitis, unspecified, thoracic region [M46.44] Post-op Diagnosis * Discitis, unspecified, thoracic region [M46.44] Procedures T5-T9 laminectomy for decompression and evacuation of epidural phlegmon Surgeons * Braulio Oneil - Primary Resident/Fellow/Other Dean Of Students: Surgeons and Role: * Giovanna Coles MD - Resident - Assisting * Dyan Waldron MD - Resident - Assisting Procedure Summary Anesthesia: Anesthesia type not filed in the log. ASA: III Anesthesia Staff: Anesthesiologist: Cameron Matos MD; Carolina Bright MD C-AA: YUDITH Mo Head Porter: Miles Vidal MD Estimated Blood Loss: 150 mL Intra-op Medications: Administrations occurring from 1135 to 1825 on 11/14/23: Medication Name Total Dose lidocaine-epinephrine (Xylocaine W/EPI) 0.5 %-1:200,000 injection 10 mL thrombin (recombinant) (Recothrom) topical solution 5,000 Units acetaminophen (Tylenol) tablet 650 mg Cannot be calculated atenolol (Tenormin) tablet 50 mg Cannot be calculated cholecalciferol (Vitamin D-3) tablet 2,000 Units Cannot be calculated dextrose 50 % injection 12.5 g Cannot be calculated dextrose 50 % injection 25 g Cannot be calculated glucagon (Glucagen) injection 1 mg Cannot be calculated insulin lispro (HumaLOG) injection 0-10 Units Cannot be calculated ipratropium-albuteroL (Duo-Neb) 0.5-2.5 mg/3 mL nebulizer solution 3 mL Cannot be calculated oxyCODONE (Roxicodone) immediate release tablet 5 mg Cannot be calculated piperacillin-tazobactam (Zosyn) 3.375 g in dextrose (iso) IV 50 mL Cannot be calculated polyethylene glycol (Glycolax, Miralax) packet 34 g Cannot be calculated rosuvastatin (Crestor) tablet 10 mg Cannot be calculated sennosides (Senokot) tablet 17.2 mg Cannot be calculated vancomycin (Vancocin) in dextrose 5 % water (D5W) 250 mL IV 1,250 mg Cannot be calculated vancomycin (Vancocin) pharmacy to dose - pharmacy monitoring Cannot be calculated venlafaxine XR (Effexor-XR) 24 hr capsule 75 mg Cannot be calculated Anesthesia Record Intraprocedure I/O Totals Intake Phenylephrine Drip 0.00 mL The total shown is the total volume documented since Anesthesia Start was filed. Total Intake 0 mL Output Urine 210 mL Total Output 210 mL Net Net Volume -210 mL Specimen: ID Type Source Tests Collected by Time A : DORSAL EPIDURAL Swab SPINE TISSUE/WOUND CULTURE/SMEAR Braulio Oneil MD PhD 11/14/2023 1636 B : LEFT LATERAL EPIDURAL Swab SPINE TISSUE/WOUND CULTURE/SMEAR Braulio Oneil MD PhD 11/14/2023 9051 Staff: Boat Loader: Jennie Boat Loader: Kya Scrub Person: Jessica Daiub Person: Stephanie Salas Boat Loader: Yu Salas Scrub: Sujatha Salas Scrub: Anahi Relief Boat Loader: Waqar Drains and/or Catheters: Closed/Suction Drain 1 Medial Back Other (Comment) 10 Fr. (Active) Urethral Catheter Coude;Latex 16 Fr. (Active) Implants: none Findings: left lateral recess and ventral phlegmon Indications: Daryn Shah is an 77 y.o. female who is having surgery for Discitis, unspecified, thoracic region [M46.44] and epidural abscess. The patient was seen in the preoperative area. The risks, benefits, complications, treatment options, non-operative alternatives, expected recovery and outcomes were discussed with the patient. The possibilities of reaction to medication, pulmonary aspiration, injury to surrounding structures, bleeding, recurrent infection, the need for additional procedures, failure to diagnose a condition, and creating a complication requiring transfusion or operation were discussed with the patient. The patient concurred with the proposed plan, giving informed consent. The site of surgery was properly noted/marked if necessary per policy. The patient has been actively warmed in preoperative area. Preopera tive antibiotics have been ordered and given within 1 hours of incision. Venous thrombosis prophylaxis have been ordered including bilateral sequential compression devices Procedure Details: Patient was identified in the preop and brought back to the operating room. A safety huddle was performed and patient identifiers, operative site, medications and allergies reviewed. General anesthesia was achieved and patient underwent endotracheal intubation. Patient was then [facility] and all pressure points were meticulously padded. Due to the stiff nature of patient's shoulders her arms were tucked next to her and secured carefully. Using lateral and AP fluoroscopy an incision was designed over T5 pedicle to the T9 pedicle. This incision was reverified using fluoroscopy from both rostrally and caudally. Skin was prepped and draped in usual sterile fashion. Incision was infiltrated with lidocaine with epinephrine. Skin was opened using a 10 blade and carried down to the level of spinous processes using combination of Bovie and bipolar cautery as well as aqua mantis. Muscle was retracted and dissected away from the spinous process and lamina carefully in the soft periosteal fashion using Bovie electrocautery. Once adequate exposure was obtained and spinous process and lamina were completely exposed another set of x-rays were obtained and the levels of the surgery were again verified (pedicle of T5 to pedicle T9). Next, attention was turned to the laminectomy. Using a Leksell rongeur the spinous processes were removed from T5 to top of T9. Laminectomy was performed using combination of high-speed bur drill andcurettes as well as Kerrison rongeurs. Once adequate midline dural exposure was obtained lateral recess or exposed and decompressed using Kerrison rongeurs on both sides. We encountered some phlegmonon the left lateral recess from T6-T9 and samples were obtained and sent for cultures. Once the adequate decompression was obtained the patient was tender to hemostasis. Hemostasis was obtained usingcombination of Floseal and cottonoid patties as well as Irrisept irrigation. Additionally we again h emostasis on the musculature using aqua mantis. Once good hemostasis was obtained restart the closure. First we left a 10 round Azeri drain and a subfascial layer. Muscle and fascia were closed in interrupted fashion using 0 Vicryl sutures. Fascia was then oversewn using a 4 PDS suture in a running fashion. Deep dermal and dermal layers were closed with inverted 2-0 Vicryl sutures and the skin was approximated with roberta. A Prevena suction was applied to the incision. Patient was then flipped supine onto a stretcher and turned to anesthesia for extubation. Patient tolerated the procedure well with no immediate notable complications. Patient was then transferred toPACU. Dr. Oneil was present for all critical portions of the case. Complications: None; patient tolerated the procedure well. Disposition: PACU - hemodynamically stable. Condition: stable Additional Details: none 11/14/23 at 6:59 PM - Giovanna Coles MD Attending Attestation: Braulio Oneil * Significant Event - Terry Lyons MD - 11/14/2023 4:04 AM EDT Discussed code status reversal with patient for OR. Explained that often arrests that occur in the acute perioperative period are reversible. Patient agreeable to being full code for 24 hours perioperatively with plans to re-instate DNR/DNI status afterwards. * Post-Procedure Note - Justin Gatica MD - 11/13/2023 11:28 AM EDT Interventional Radiology Brief Postprocedure Note Attending: Dr. Donaldson Dean Of Students: Dr. Gatica Diagnosis: T6-T9 discitis/osteomyelitis Description of procedure: Technically successful CT-guided biopsy of the T7 vertebral body. A totalof 1 core sample was obtained using a 13G needle. Specimens were sent to pathology/lab. Please see PACS report for further details. Anesthesia: MAC Complications: None Estimated Blood Loss: minimal Medications: 2 mg versed, 100 mcg fentanyl See detailed result report with images in PACS. The patient tolerated the procedure well without incident or complication and is in stable condition. * Post-Procedure Note - Justin Gatica MD - 11/13/2023 11:13 AM EDT This note was entered in error. * Care Plan - Rosenda Arellano LPN - 11/13/2023 10:48 AM EDT The patient's goals for the shift include rest. The clinical goals for the shift include Patient will remain safe and injury free * Care Plan - Mamadou Ayala RN - 11/12/2023 12:32 PM EDT The clinical goals for the shift include pt will be free from falls and injury by the end of the shift Over the shift, the patient did make progress toward the following goals. * Care Plan - Rosenda Arellano LPN - 11/11/2023 3:09 PM EDT The patient's goals for the shift include remain free from falls. 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 Patient was BIBA to [facility] and was admitted on 11/06/23 for intractable back pain. MRI showed concerns for osteomyelitis/discitis mid-lower thoracic spine (detailed above). She was started on vancomycin and Zosyn. Was transferred to [facility] on 11/09/23 and was continued on vancomycin and zosyn. Pain was well controlled. Was evaluated by ID team who agreed with antibiotics and bone biopsy. Patient evaluated also by NSGY team who agreed with IR bone biopsy, abx management and did not note need for surgical intervention on initial evaluation. Patient underwent biopsy with IR on 11/12. Subsequently, re-evaluated by NSGY who performed T5-T9 laminectomy on 11/13. Patient did well post-op, pain well controlled. 11/05 Bcx negative, 11/08 Bcx neg, tissue culture 11/12 (IR) neg, tissue culture 11/13 (OR) neg. PendinS, Surgical pathology Patient also had an imaging incidentally finding of pulmonary nodules for which follow up with outpatient PET was recommended and ordered. Patient presented with SANDRA (Cr 1.12) and was hyponatremic (133) on initial admission, noted to be chronic. Home Lisinopril held iso SANDRA and maxide held iso SIADH. Inpatient blood pressures were lower(100s/50s-60s) and did not allow for restarting these medications. SANDRA resolved during admission and Na remained between 132-136. * Care Plan - Rosenda Arellano LPN - 11/10/2023 2:46 PM EDT The patient's goals for the shift include remaining free from falls. The clinical goals for the shift include Patient will have pain control this shift * Care Plan - Rosenda Arellano LPN - 11/09/2023 2:23 PM EDT The patient's goals for the shift include stay free from falls The clinical goals for the shift include Patient will have pain control this shift * Care Plan - Nilda Fuchs RN - 11/09/2023 10:05 AM EDT The patient's goals for the shift include decrease pain The clinical goals for the shift include Patient will have pain control this shift * Care Plan - Erinn Raygoza RN - 11/09/2023 4:25 AM EDT Problem: Pain Goal: Takes deep breaths with improved pain control throughout the shift Outcome: Progressing Goal: Turns in bed with improved pain control throughout the shift Outcome: Progressing Goal: Free from opioid side effects throughout the shift Outcome: Progressing Goal: Free from acute confusion related to pain meds throughout the shift Outcome: Progressing The patient's goals for the shift include The clinical goals for the shift include Will have pain controlle dduring shift. documented in this [facility] Work Phone: [phone] Consult note* Carmen Rodriguez MD - 11/19/2023 3:00 PM EDTAssociated Order(s): Inpatient consult to Geriatric Medicine Inpatient consult to Geriatric Medicine Consult performed by: Carmen Rodriguez MD Consult ordered by: Sai Marie MD Primary Team: General Medicine Admit Date: 11/09/2023 Emergency Contact: Extended Emergency Contact Information Primary Emergency Contact: BEVERLY SHAH Address: [address] [place] [address] [facility] Mobile Relation: Son Preferred language: [place] [employer] Clerk needed? No Secondary Emergency Contact: Rissa SHAH Address: [address] [place] [address] [facility] Mobile Relation: Son Preferred language: [place] [employer] Clerk needed? No Reason For Consult: Concern for adjustment disorder History Of Present Illness: Daryn Shah is a 77 y.o. female presenting with worsening back pain, ongoing for 3-4 weeks. Work-up was significant for multiple large lung nodules concerning for metastatic disease. MRI of thoracic spine showed T6-9 prevertebral phlegmon, as well as T6-7/T7 discitis/osteomyelitis. Patient was s tarted on broad spectrum antibiotics. She underwent IR guided T spine biopsy and had T5-9 laminectomy for epidural abscess. Patient has PMHx of chronic atrial fibrillation, anxiety/depression, Type 2DM and COPD. Over the course of the hospital stay, patient was found to be significantly depressed and anxious. She expressed feelings of being better of , worried about her son and her general condition. History per patient: She lives at home with her son. She is usually non-ambulatory and uses a motorized scooter within her home. She has a hospital bed in her living room/kitchen area. Her son has cystic fibrosis and gets admitted multiple times for exacerbation. She is also very concerned about his chronic alcohol use. She lost her a son at the age of 23 from cystic fibrosis. She has an older son from previous marriage. She is concerned about her general overall health but more about her son who is currently admitted in [facility]. Patient stated she was previously on Paxil which dis not help. She has been on Effexor for about 3-4 years without any change. She lost her about a year ago and that made her depression worse as he was the one that was younger and supposed to help her. History per son: Son concurs above history. What matters most to the patient: Family, getting better Prior to Admission Meds Prior to Admission Medications Prescriptions Last Dose Informant Patient Reported? Taking? atenolol (Tenormin) 100 mg tablet Self No No Sig: Take 0.5 tablets (50 mg) by mouth 2 times a day. baclofen (Lioresal) 10 mg tablet Self No No Sig: Take 1 tablet (10 mg) by mouth 2 times a day. Patient not taking: Reported on 11/06/2023 cholecalciferol (Vitamin D-3) 25 MCG (1000 UT) tablet Self No No Sig: Take 2 tablets (2,000 Units) by mouth once daily. cinnamon 500 mg capsule Self Yes No Sig: Take 1 capsule (500 mg) by mouth twice a day. dulaglutide 3 mg/0.5 mL pen injector 10/27/2023 Self No No Sig: Inject 3 mg under the skin 1 (one) time per week. ferrous gluconate 324 (38 Fe) mg tablet Self No No Sig: Take 1 tablet (38 mg of iron) by mouth once daily with breakfast. magnesium oxide (Mag-Ox) 200 mg magnesium tablet Self Yes No Sig: Take 1 tablet (200 mg) by mouth once daily. multivit-minerals/folic acid (ADULT MULTIVITAMIN GUMMIES ORAL) Self Yes No Sig: Take 1 each by mouth once daily. potassium chloride ER (Micro-K) 10 mEq ER capsule Self No No Sig: Take 1 capsule (10 mEq) by mouth once daily. rivaroxaban (Xarelto) 20 mg tablet Self No No Sig: Take 1 tablet (20 mg) by mouth once daily. rosuvastatin (Crestor) 10 mg tablet Self No No Sig: Take 1 tablet (10 mg) by mouth once daily at bedtime. triamterene-hydrochlorothiazid (Maxzide-25) 37.5-25 mg tablet Self No No Sig: Take 1 tablet by mouth once daily. venlafaxine XR (Effexor-XR) 75 mg 24 hr capsule Self No No Sig: Take 1 capsule (75 mg) by mouth once daily. Facility-Administered Medications: None Current Meds in Hospital Current Facility-Administered Medications Medication Dose Route Frequency Provider Last Rate Last Admin acetaminophen (Tylenol) tablet 650 mg 650 mg oral q6h PRN Thomas Hoffman MD 650 mg at 11/19/23 0858 alteplase (Cathflo Activase) injection 2 mg 2 mg intra-catheter PRN Danny Deng MD atenolol (Tenormin) tablet 50 mg 50 mg oral BID Giovanna Coles MD 50 mg at 11/19/23 0901 cefTRIAXone (Rocephin) 2 g in dextrose (iso) IV 50 mL 2 g intravenous q12h Danny Deng MD Stoppedat 11/19/23 1014 cholecalciferol (Vitamin D-3) tablet 2,000 Units 2,000 Units oral Daily Giovanna Coles MD 2,000 Units at 11/19/23 0858 cyclobenzaprine (Flexeril) tablet 5 mg 5 mg oral TID Giovanna Coles MD 5 mg at 11/19/23 0900 dextrose 50 % injection 12.5 g 12.5 g intravenous q15 min PRN Giovanna Coles MD dextrose 50 % injection 25 g 25 g intravenous q15 min PRN Giovanna Coles MD enoxaparin (Lovenox) syringe 40 mg 40 mg subcutaneous q24h Danny Deng MD 40 mg at 11/18/23 1801 glucagon (Glucagen) injection 1 mg 1 mg intramuscular q15 min PRN Giovanna Coles MD HYDROmorphone (Dilaudid) injection 0.2 mg 0.2 mg intravenous q3h PRN Giovanna Coles MD 0.2 mg at 11/19/23 0924 insulin lispro (HumaLOG) injection 0-10 Units 0-10 Units subcutaneous Before meals & nightly Giovanna Coles MD 2 Units at 11/18/23 2117 ipratropium-albuteroL (Duo-Neb) 0.5-2.5 mg/3 mL nebulizer solution 3 mL 3 mL nebulization q6h PRN Giovanna Coles MD lidocaine (Xylocaine) 10 mg/mL (1 %) injection 5 mL 5 mL infiltration Once Danny Deng MD nystatin (Mycostatin) 100,000 unit/gram powder 1 Application 1 Application Topical BID Le Null MD 1 Application at 11/19/23 0900 oxyCODONE (Roxicodone) immediate release tablet 10 mg 10 mg oral q4h PRN Giovanna Coles MD 10 mg at 11/16/23 2214 oxyCODONE (Roxicodone) immediate release tablet 5 mg 5 mg oral q4h PRN Giovanna Coles MD 5 mg at 11/18/23 1832 polyethylene glycol (Glycolax, Miralax) packet 34 g 34 g oral BID Giovanna Coles MD 17 g at [id number] [Held by provider] rivaroxaban (Xarelto) tablet 20 mg 20 mg oral Daily Eulalia Champagne MD rosuvastatin (Crestor) tablet 10 mg 10 mg oral Nightly Giovanna Coles MD 10 mg at 11/18/23 2100 sennosides (Senokot) tablet 17.2 mg 2 tablet oral BID Giovanna Coles MD 17.2 mg at 11/19/23 0900 vancomycin (Vancocin) in dextrose 5 % water (D5W) 500 mL IV 1,500 mg 1,500 mg intravenous q24h Eulalia Champagne MD vancomycin (Vancocin) pharmacy to dose - pharmacy monitoring miscellaneous Daily PRN Giovanna Coles MD venlafaxine XR (Effexor-XR) 24 hr capsule 75 mg 75 mg oral Daily Giovanna Coles MD 75 mg at [id number] The patient's outpatient electronic medical record (EMR) is reviewed, notable information includes: 10/09-10/15/23: [facility] admitted for Acute Proteus Mirabilis UTI. Discharged to SNF 08/20/23 - Telemedicine visit with PCP for a variety of reasons 07/20/23 - Telehealth cardiology visit for persistent A. Fib 07/03/23 - Telehealth follow-up visit- follow-up on ED visit. 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 Social History She reports that she has never smoked. She has never used smokeless tobacco. She reports that she does not drink alcohol and does not use drugs. -Alcohol use: No -Tobacco use: No -Illicit drug use: No -Exercise: No -Spiritual needs: Scientology, Presbyterian -Marital Status: Occupation: Retired [employer] Highest Level of Education: College Graduate Community Resources: None : No Current living environment: Lives w Activities of Daily Living: Basic ADLs: (I= independent, A= assistance, D= dependent) Bathing: I, Dressing: I, Toileting: I, Transferring: D , Continence: D , Feeding: I [place] Index: 4 Instrumental ADLs: (I= independent, A= assistance, D= dependent) Ability to use phone: I, Shopping: A , Cooking: A , Housekeeping: A , Laundry: A , Transportation: D , Medications: A , Handle Finances: A Crystal Scale: 7 Allergies Patient has no known allergies. Review of Systems Review of System: Constitutional: -Night sweats/fever: No -Weight change: No Integumentary: No new rash Ears, Nose, Throat: -Hearing loss: No hearing loss Eyes: -Vision loss: wears glasses Cardiovascular: -Chest Pain: No -Orthopnea: No -Paroxysmal nocturnal dyspnea: No -Edema: No Respiratory: -Dyspnea: No -Wheezing: No Gastrointestinal: -Appetite: Good Genitourinary: -Incontinence: Yes Musculoskeletal: -Mobility: Uses a motorized wheelchair -Pain: Pain is fairly controlled Neurological: -Confusion: No -Falls: No -Gait: Does not walk, uses a motorized wheel chair -Memory: See HPI -Tremor: No Psychiatric: -Mood: See HPI -Sleep: Not good Documents on file and valid: Advance Directive/Living Will: No Health Care Power of Manager Of Organizational Development: No Code Status: DNR and No Intubation Patient Health Questionnaire (PHQ-9) Over the past 2 weeks, how often have you been bothered by any of the following problems? Little interest or pleasure in doing things: Not at all Feeling down, depressed, or hopeless: Not at all Physical Exam GEN: Alert, oriented to person, place and time, not pale, not jaundiced, well hydrated, morbidly obese CVS: HS I +II, regular, no murmurs RESP: Diminished air entry ABD: Full, soft, BS present, nontender, no palpable organs, EXT: No bilateral leg edema Last Recorded Vitals 11/18/2023 3:34 PM 11/18/2023 6:58 PM 11/18/2023 8:31 PM 11/18/2023 8:52 PM 11/19/2023 12:17 AM 11/19/2023 4:55 AM 11/19/2023 8:29 AM Vitals Systolic 123 99 94 106 104 91 99 Diastolic 67 53 51 70 55 57 63 Heart Rate 77 73 69 83 71 74 Temp 36.3 C (97.3 F) 37.2 C (99 F) 37.1 C (98.8 F) 36.6 C (97.9 F) 36.6 C (97.9 F) 36.9 C (98.4 F) Resp 19 20 19 Vitals: 11/09/23 0230 Weight: 94.6 kg (208 lb 8.9 oz) Confusion Assessment Method(CAM) for diagnosis of delirium: 1. Acute onset or fluctuating course: absent/present: Absent 2. Inattention: absent/present: Absent 3. Disorganized thinking: absent/present: Absent 4. Altered level of consciousness: absent/present: Absent CAM: negative AT Score For Assessment of Delirium and Cognitive Impairment: Alertness: 0 Normal(fully alert,but not agitated, throughout assessment)=0 Mild sleepiness for <10 seconds after walking, then normal=0 Clearly abnormal=4 2. AMT4: 0 No mistakes=0 One mistake=1 Two or more mistakes/untestable=2 3. Attention: 0 Achieves seven months or more correctly=0 Starts but scores <7 months/ refuses to start=1 Untestable(cannot start because unwell, drowsy, inattentive)=2 4. Acute: 0 No=0 Yes=4 Total Score: 0 4 or above: Possible delirium +/- cognitive impairment 1-3: Possible cognitive impairment 0: Delirium or severe cognitive impairment unlikely(but delirium still possible if (4) information incomplete) Relevant Results Lab Results Component Value Date TSH 3.72 02/05/2019 [id number] 03/06/2023 VITD25 21 (L) 05/21/2023 HGBA1C 7.2 (H) 03/06/2023 Results from last 7 days Lab Units 11/19/23 0708 11/18/23 0601 11/17/23 0649 11/15/23 1533 11/14/23 0636 WBC AUTO x10*3/uL 8.0 8.8 7.3 < > 6.4 HEMOGLOBIN g/dL 8.5* 8.7* 9.1* < > 10.5* HEMATOCRIT % 27.2* 28.0* 29.3* < > 34.8* SODIUM mmol/L 138 137 137 < > 138 POTASSIUM mmol/L 3.8 3.9 4.0 < > 3.4* CHLORIDE mmol/L 100 98 99 < > 96* CREATININE mg/dL 0.61 0.66 0.63 < > 0.97 BUN mg/dL 14 14 14 < > 16 CO2 mmol/L 31 30 31 < > 35* INR -- -- -- -- 1.1 < > = values in this interval not displayed. Recent Imaging Results XR chest 1 view Narrative: Interpreted By: Pastor Nieto, and Niraj Moreno STUDY: XR CHEST 1 VIEW; 11/16/2023 5:05 pm INDICATION: Signs/Symptoms:PICC PLACEMENT. COMPARISON: 11/13/2023 chest radiograph ACCESSION NUMBER(S): [id number] ORDERING CLINICIAN: RU ORTEGA FINDINGS: AP radiograph of the chest was provided. Interval placement of a left upper extremity PICC line with tip projecting over the upper superior vena cava. Numerous skin roberta overlying the right paramedian chest. CARDIOMEDIASTINAL SILHOUETTE: Cardiomediastinal silhouette is prominent and stable in size and configuration. LUNGS: Small left pleural effusion. Mild perihilar and infrahilar patchy opacities bilaterally, slightly increased compared to the prior exam. Mild biapical scarring without evidence of discrete pneumothorax. ABDOMEN: No remarkable upper abdominal findings. BONES: No acute osseous abnormality. Impression: 1. Small left pleural effusion with mildly increased perihilar infrahilar patchy opacities, possibly related to edema. No pneumothorax. 2. Interval placement of a left upper extremity PICC line with tip overlying the upper superior vena cava. I personally reviewed the image(s)/study and resident interpretation as stated by Dr. Tiffanie Healy MD. I agree with the findings as stated. This study was interpreted at [facility], [place], [place]. MACRO: None Signed by: Frankoctavia Carlislelindsay Barrinetos 11/17/2023 6:46 AM Dictation workstation: [id number] Head/Brain Imaging No results found for this or any previous visit. No results found for this or any previous visit. DATA: EKG: QTC Encounter Date: 11/09/23 ECG 12 Lead Result Value Ventricular Rate 73 Atrial Rate 73 MA Interval 196 QRS Duration 106 QT Interval 384 QTC Calculation(Bazett) 423 P Critz -24 R Critz -46 T Critz -41 QRS Count 12 Q Onset 205 P Onset 107 P Offset 148 T Offset 397 QTC Fredericia 410 Narrative Atrial fibrillation Left axis deviation Low voltage QRS Cannot rule out Anterior infarct , age undetermined Abnormal ECG Confirmed by Fabio Bee ([id number]) on 11/15/2023 2:34:28 PM Anti-psychotics in 48 hours: No Opioids/Benzodiazepines in 48 hours: Anticholinergics on board:Yes - Flexeril Restraints:No Indwelling catheters:No Last BM:11/17/23 UO in 24 hours:450 mls Activity in the past 24 hours: Assist x2 Need for ambulatory devices: Wheel chair Assessment/Plan 77 y.o. year old female, with past medical history relevant for major depressive disorder,on Effexor, chronic back pain with LLE pain, non-mobile, ambulates with motorized wheelchair, presenting withworsening low upper back pain and found to have T6-9 prevertebral phlegmon, as well as T6-7/T7 discitis/osteomyelitis. She underwent T7 vertebral body biopsy on 11/12 and T5-9 laminectomy and I& D for epidural abscess. All cultures are negative to date. She has a PICC line for IV antibiotics. Geriatrics has been consulted for anxiety/depression, passive SI. Principal Problem: Discitis, unspecified, thoracic region 1. Anxiety/depression, worsening in the context of current medical condition. Patient with long standing depression, on Effexor 75mg daily. She has recent multiple stressors including losing her a year ago, history of having lost son at age 25 from cystic fibrosis. Currently her son that lives with her also has cystic fibrosis with multiple admissions. She statedshe worries about her son a lot She is concerned about her current medical condition of recent spinal surgery and need for acute rehab She denies active SI/HI. GDS 12/22 Patient likes music therapy and liked when her certifed refrigeration operator from [place] came to visit before her surgery. Plan: Increase Effexor to 112.5mg daily Consult music therapy and river guide services 2. Concern for cognitive impairment - likely worsened by current depression. No inattention seen onexam Recommend checking TSH, Vitamin B12 3. Acute pain secondary to recent spinal surgery. Pain is fairly controlled on current regimen with Flexeril and oxycodone Monitor for acute delirium whilst on Flexeril as it is anticholinergic Care Transitions: -Recommended level for discharge: Moderate intensity rehab -Home going considerations: Lives with son with health problems -Primary care physician: Dr. Huan Chew Goals of Care: -Health care power of endless steamer tender:No -Living will:No Code status:DNR/DNI 4M AGE-FRIENDLY INITIATIVE: What matters most to patient: Family/son Medications: Flexeril, baclofen (at home) Mentation: CAM negative, 4AT 0 Mobility: Patient is wheel chair bound at baseline Geriatric medicine will continue to follow the patient. Thank you for allowing geriatric medicine to be involved in the care of your patient. Geriatric medicine consultation team is available during work hours Sunday through Sunday. For any emergency issues requiring immediate assistance over the weekend, please page Geriatrics pager [phone] Consult Billing Time Prep time on date of patient encounter(minutes):30 Time directly with patient/family/caregiver(minutes):65 Documentation time(minutes):30 TOTAL TIME(minutes):125 Carmen Rodriguez MD * Kemi Priest RN - 11/12/2023 6:18 PM EDTAssociated Order(s): WOUND OSTOMY NURSING CONSULT Images from the original note were not included. Wound Care Consult Visit Date: 11/12/2023 Patient Name: Daryn Shah Date of : 1945 Reason for Consult: Wound to right lower leg Wound History: Ms Shah is a 77 y.o F w/ PMHx of Afib (on Xeralto), COPD (02?), DMII (A1c 7.2% 03/01 and Cellulitis presents as a transfer from [facility] to [facility] for work up of newly found multiple large lung nodules c/f metastatic disease. Pertinent Labs: Albumin Date Value Ref Range Status 11/12/2023 2.8 (L) 3.4 - 5.0 g/dL Final Wound Assessment: Wound 11/06/23 Traumatic Leg Right;Lower (Active) Wound Image 11/12/23 1604 Site Assessment [place] 11/12/23 1604 [place]-Wound Assessment Hypopigmented 11/12/23 1604 Non-staged Wound Description Partial thickness 11/12/23 1604 Shape round 11/12/23 1604 Wound Length (cm) 4 cm 11/12/23 1604 Wound Width (cm) 3 cm 11/12/23 1604 Wound Surface Area (cm^2) 12 cm^2 11/12/23 1604 Wound Depth (cm) 0.1 cm 11/12/23 1604 Wound Volume (cm^3) 1.2 cm^3 11/12/23 1604 State of Healing Closed wound edges;Healing ridge 11/09/23 0116 Margins Poorly defined 11/12/23 1604 Drainage Description Serous;Yellow 11/12/23 1604 Drainage Amount Small 11/12/23 1604 Dressing Silicone border dressing 11/12/23 1604 Dressing Changed Changed 11/12/23 1604 Dressing Status Clean;Dry 11/12/23 1604 Wound Team Summary Assessment: Pale pink wound to right lower leg. Patient states she may have hit her leg on something. Recommendations: - Right lower leg,Clean with NSS, Apply a small drop of medihoney on open skin only. Cover with Mepilex and change every other day. Wound Team Plan: Wound team will not continue to follow. Please re consult for worsening of wounds. KEMI PRIEST RN, BSN, CWOCN 11/12/2023 6:18 PM * Gilbert Momin MD - 11/09/2023 2:33 PM EDTAssociated Order(s): Inpatient consult to Infectious Diseases Inpatient consult to Infectious Diseases Consult performed by: Gilbert Momin MD Consult ordered by: Ru Ortega MD Subjective Daryn Shah is a 77 y.o. female transferred from [facility] for neurosurgical evaluation for back pain starting on 11/04, ID consulted for vertebral osteomyelitis. She has a history of atrial fibrillation on rivaroxaban, documented COPD not on oxygen and without PFTs, 6 year history of inability to ambulate with significant functional overlay, and insulin independent DM2. Today, patient is anxious. She does not endorse fevers, chills, dysuria, chest pain, nor incontinence. Patient is awareof the possible oncological implications of her recent CT scan. She has back pain, but it is less now than it was at home. HPI Patient began having back pain 4 weeks ago, at which time she presented to [facility]. Imaging atthat time was most consistent with chronic changes of the spine with no acute need for surgical intervention. She was incidentally found to have a UTI, which was treated with ceftriaxone and cefazolin. Her back pain was treated with baclofen, which she states made some difference. She was discharged to rehabilitation at a SNF, where she noted weakness in her legs, which she attributed to baclofen. The patient was sent home after SNF on 11/01, at which time she discontinued the baclofen. On 11/04,the patient experienced sudden severe back pain, 8/10, which was not relieved by acetaminophen. Imaging at [facility] was concerning for osteomyelitis with perivertebral abscesses as well as multiple new large pulmonary nodules. Blood cultures drawn and started on vanc/zosyn, which was changed to vanc/cefepime on admission to [facility]. Objective Physical Exam Constitutional: General: She is not in acute distress. Appearance: Normal appearance. She is obese. She is not ill-appearing. HENT: Head: Normocephalic and atraumatic. Nose: Nose normal. Mouth/Throat: Mouth: Mucous membranes are moist. Pharynx: Oropharynx is clear. Eyes: Extraocular Movements: Extraocular movements intact. Pupils: Pupils are equal, round, and reactive to light. Cardiovascular: Rate and Rhythm: Tachycardia present. Rhythm irregular. Heart sounds: Normal heart sounds. Pulmonary: Effort: Pulmonary effort is normal. Breath sounds: Normal breath sounds. Musculoskeletal: General: Normal range of motion. Right lower leg: No edema. Left lower leg: No edema. Skin: General: Skin is warm and dry. Capillary Refill: Capillary refill takes 2 to 3 seconds. Findings: Erythema and lesion present. Neurological: General: No focal deficit present. Mental Status: She is alert and oriented to person, place, and time. Mental status is at baseline. Cranial Nerves: No cranial nerve deficit. Motor: No weakness. Coordination: Coordination normal. Gait: Gait normal. Psychiatric: Attention and Perception: Attention and perception normal. Mood and Affect: Mood is anxious. Affect is tearful. Speech: Speech normal. Behavior: Behavior normal. Behavior is cooperative. Thought Content: Thought content normal. Cognition and Memory: Cognition and memory normal. Temp: [35.1 C (95.2 F)-36.6 C (97.9 F)] 35.7 C (96.3 F) Heart Rate: [57-70] 64 Resp: [14-18] 18 BP: (96-138)/(58-85) 96/61 Intake/Output Summary (Last 24 hours) at 11/09/2023 1434 Last data filed at 11/09/2023 1421 Gross per 24 hour Intake 50 ml Output 1050 ml Net -1000 ml Vitals: 11/09/23 0230 Weight: 94.6 kg (208 lb 8.9 oz) Labs: CBC: Recent Labs 11/09/23 0303 11/08/23 0523 11/07/23 0422 WBC 8.8 7.8 7.8 HGB 10.8* 10.3* 9.9* HCT 34.5* 33.3* 32.4* PLT 263 228 246 MCV 85 86 87 CMP: Recent Labs 11/09/23 0303 11/08/23 0523 11/07/23 0422 11/06/23 0513 NA 132* -- 133* 133* K 3.7 -- 3.4* 3.8 CL 96* -- 100 96* CO2 25 -- 26 26 ANIONGAP 15 -- 10 15 BUN 14 -- 21 29* CREATININE 0.80 0.87 0.92 1.12* EGFR 77 70 65 51* GLUCOSE 115* -- 116* 153* Recent Labs 11/09/23 0303 11/06/23 0513 08/03/23 1328 ALBUMIN 2.8* 3.3* 4.1 ALKPHOS 134 133 132* 113 ALT 12 10 12 AST 22 14 19 BILITOT 0.4 0.5 0.5 Calcium/Phos: Lab Results Component Value Date CALCIUM 8.4 (L) 11/09/2023 PHOS 3.3 10/20/2020 COAG: Recent Labs 09/10/22 0508 09/08/22 1302 INR 1.4* 5.4* CRP: Lab Results Component Value Date CRP 4.29 (H) 11/08/2023 ENDO: Recent Labs 03/06/23 1118 09/09/22 0454 06/01/22 1138 03/01/22 1158 10/30/19 1029 02/05/19 1205 TSH -- -- -- -- -- 3.72 HGBA1C 7.2* 7.6* 8.0* 7.1* < > 6.2 < > = values in this interval not displayed. CARDIAC: Recent Labs 11/08/23 0522 11/06/23 0513 10/10/23 0315 10/10/23 0152 09/09/22 0454 TROPHS -- 9 12 12 14* BNP 484* -- -- 225* 296* Recent Labs 03/06/23 1118 09/09/22 0454 03/01/22 1158 09/14/21 1455 06/07/21 1427 CHOL 125 108 132 < > 193 LDLF -- 47 64 -- 108* LDLCALC 48 -- -- -- -- HDL 55.0 39.0* 45.0 -- 45.0 TRIG 111 108 115 < > 198* < > = values in this interval not displayed. Micro/ID: Susceptibility data from last 90 days. Collected Specimen Info Organism Ampicillin Cefazolin Cefazolin (uncomplicated UTIs only) Ciprofloxacin Gentamicin Nitrofurantoin Piperacillin/Tazobactam Tetracycline Trimethoprim/Sulfamethoxazole 10/10/23 Urine from Clean Catch/Voided Proteus mirabilis S S S S S R S R S Lab Results Component Value Date URINECULTURE (A) 11/06/2023 Multiple organisms present, probable contamination. Repeat culture if clinically indicated. BLOODCULT Loaded on Instrument - Culture in progress 11/09/2023 BLOODCULT Loaded on Instrument - Culture in progress 11/09/2023 Imaging: MR lumbar spine w and wo IV contrast Result Date: 11/06/2023 Multilevel degenerative disc disease and facet arthrosis most pronounced at L3- L4 with severe spinal canal and moderate bilateral neural foraminal stenosis. Mildly heterogeneous bone marrow signal isnonspecific. There is a hemangioma within the L4 vertebral body. Otherwise no focal lesion within the lumbar spine. MR thoracic spine w and wo IV contrast Result Date: 11/06/2023 There is abnormal signal within the disc spaces at T6-T7 and T7-T8 as well as abnormal signal throughout the T6 and T7 vertebral bodies and the majority of the T8 vertebral body suggesting discitis osteomyelitis at these levels. There is prevertebral and paraspinal infiltration with multiple subcentimeter T1 hypointense and rim enhancing collections within the paraspinal soft tissues suggesting small abscesses. There is greater than expected enhancement within the epidural space extending from T6 through T9 suggesting phlegmon. This results in severe spinal canal stenosis at these levels. Question subtle increased cord signal on the STIR sequence. MR cervical spine w and wo IV contrast Result Date: 11/06/2023 The examination is moderately degraded by patient motion artifact. Within this limitation, no evidence of focal osseous metastatic disease. No definite abnormal signal or enhancement within the cervical cord. Multilevel degenerative changes as detailed above. CT chest abdomen pelvis wo IV contrast Result Date: 11/06/2023 CHEST: 1. Endplate changes involving T6-7 and T7-8, indicative of discitis/osteomyelitis. Prominentprevertebral soft tissue swelling noted, indicative of phlegmonous changes. Evaluation for an abscess is limited due to lack of IV contrast. 2. Multiple right lung nodules. The largest is measured at 1.1 x 1.0 cm in the right middle lobe. Malignancy cannot be excluded. Follow-up with PET CT scan isrecommended. 3. Coronary artery calcifications. ABDOMEN/PELVIS: 1. Evaluation for an abscess is limited due to lack of IV contrast. 2. Left-sided nephrolithiasis, with no evidence of hydronephrosis. 3. Calcified uterine fibroids. CT thoracic spine wo IV contrast Result Date: 11/06/2023 Extensive calcifications of the great vessels Nephrolithiasis suspected Cholecystitis changes Mild bulbous prominence of the body of the pancreas. Recommend CT of the Abdomen with contrast designed to look at the pancreas. Coronary artery calcifications Minimal basilar fibrotic changes of the lungs Multifocal pulmonary nodules of the lungs seen bilaterally in conjunction with granulomatous changes. Certainly could not exclude metastatic disease in the lungs. May want to correlate with a formal chest CT to assess the entire lung parenchyma and certainly correlate with malignancy history. 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 Quite nonspecific but cannot exclude metastatic lesions of the thoracic spine There is endplate destructive changes involving T6-7, T7-8 with some associated surrounding soft tissue concerning for inflammatory discitis with associated bone destructive changes and presumed osteomyelitis.Recommend MRI exam as the next step in the evaluation---no gross canal narrowing. Meds: Scheduled medications atenolol, 50 mg, oral, BID cholecalciferol, 2,000 Units, oral, Daily docusate sodium, 100 mg, oral, BID insulin lispro, 0-10 Units, subcutaneous, q4h piperacillin-tazobactam, 3.375 g, intravenous, q6h polyethylene glycol, 17 g, oral, Daily [Held by provider] rivaroxaban, 20 mg, oral, Daily rosuvastatin, 10 mg, oral, Nightly vancomycin, 1,250 mg, intravenous, q24h venlafaxine XR, 75 mg, oral, Daily PRN medications PRN medications: acetaminophen, dextrose, dextrose, glucagon, ipratropium- albuteroL, oxyCODONE, vancomycin Assessment Daryn Shah is a 77 y.o. female transferred from [facility] for neurosurgical evaluation for back pain starting on 11/04, ID consulted for vertebral osteomyelitis. She has a history of atrial fibrillation on rivaroxaban, documented COPD not on oxygen and without PFTs, 6 year history of inability to ambulate with significant functional overlay, and insulin independent DM2. Osteomyelitis with abscess concerns vs possible malignancy. Slowly healing diabetic ulcer on R leg, patient states thatshe picks at it as well as other areas of her skin, which may be source of infection. Abscesses pose risk for progression to systemic infection or expansion which might cause compression of the spinal cord. Recommendations - Continue vanc/cefepime pending bone biopsy - Bone culture from biopsy - If possible, culture of paraspinal abscess sample - If osteomyelitis confirmed on biopsy, may require 6+ weeks of IV antibiotic therapy Gilbert Momin MD PGY2 ID Consult Service A Pager [phone] Associated attestation - Megan Osorio DO - 11/09/2023 10:20 PM EDT I saw and evaluated the patient. I personally obtained the pickering and critical portions of the historyand physical exam or was physically present for pickering and critical portions performed by the resident/fellow. I reviewed the resident/fellow's documentation and discussed the patient with the resident/gal moss. I agree with the resident/fellow's medical decision making as documented in the note. 77 y/o woman w/ pmhx as noted above, transferred from OSH for acute onset worsening back pain and imaging consistent w/ thoracic discitis/OM as well as small abscesses +/- phlegmon. On broad abx coverage and agree w/ keeping abx on for now due to the presence of paraspinal abscesses and phlegmon. Planning for IR biopsy Mon after holding her anticoagulation. Of note pt has had significant life stressors w/ loss of her spouse, child, and overall feeling very overwhelmed w/ her medical course. She is receptive to speaking w/ river [employer] services and other support services offered while inpatient. Recommendations: -Cont IV vanc, dosed w/ pharmacy -Cont IV pip-tazo 3.375gm q6H -Will follow up blood cx and IR biopsy plans, when collected please send for pathology and gram stain w/ bacterial cx; if no growth will request 16s testing Will follow Megan Osorio DO Epic Chat or pager [phone] * Raul Burgos, PharmD - 11/09/2023 3:09 AM EDTAssociated Order(s): PHARMACY TO DOSE VANCO Vancomycin Dosing by Pharmacy- INITIAL Daryn Shah is a 77 y.o. year old female who Pharmacy has been consulted for vancomycin dosing for osteomyelitis/septic arthritis. Based on the patient's indication and renal status this patient will be dosed based on a goal AUC of 400-600. Renal function is currently stable. Visit Vitals BP 138/85 Pulse 70 Temp 36.5 C (97.7 F) Resp 18 Lab Results Component Value Date CREATININE 0.87 11/08/2023 CREATININE 0.92 11/07/2023 CREATININE 1.12 (H) 11/06/2023 CREATININE 0.67 10/15/2023 Patient weight is as follows: Vitals: 11/09/23 0230 Weight: 94.6 kg (208 lb 8.9 oz) Cultures: No results found for the encounter in last 14 days. No intake/output data recorded. I/O during current shift: No intake/output data recorded. Temp (24hrs), Av.3 C (97.3 F), Min:35.7 C (96.3 F), Max:36.6 C (97.9 F) Assessment/Plan Patient will not be given a loading dose. Patient is a transfer from [facility] and last dose taken was 1750mg 11/07 @1300. Will initiate vancomycin maintenance, 1250 mg every 24 hours. This dosing regimen is predicted by [employer] to result in the following pharmacokinetic parameters: Loading dose: N/A Regimen: 1250 mg IV every 24 hours. Start time: 00:58 on 11/09/2023 Exposure target: AUC24 (range)400-600 mg/L.hr AUC24,ss: 458 mg/L.hr Probability of AUC24 > 400: 75 % Ctrough,ss: 13.1 mg/L Probability of Ctrough,ss > 20: 9 % Probability of nephrotoxicity (Lodise GIANNA 2008): 8 % Follow-up level will be ordered on 11/09 at AM lab unless clinically indicated sooner. Will continue to monitor renal function daily while on vancomycin and order serum creatinine at least every 48 hours if not already ordered. Follow for continued vancomycin needs, clinical response, and signs/symptoms of toxicity. Raul Burgos, PharmD * Bobby Gonzalez MD - 11/09/2023 3:00 AM EDTAssociated Order(s): Inpatient consult to Neurosurgery Inpatient consult to Neurosurgery Consult performed by: Bobby Gonzalez MD Consult ordered by: Ru Ortega MD Date of Service: 11/09/2023 Attending Provider: Ru Ortega MD Reason for Consultation: Daryn Shah is being seen today for a consult requested by Ru Ortega MD for discitis. Subjective History of Present Illness: Daryn is a 77 y.o. female with h/o Afib on Xarelto, HTN, HLD, T2DM, T2DM, SIADH, COPD, anxiety p/w back pain x 3wks, bedbound at baseline. Patient denies trauma, injection, prior spine surgery. She reports chronic LLE pain since she can remember. She is bedbound at baseline, son is primary caregiver. She takes Xarelto which she last took 8/1AM. Denies fever, chills, dizziness, confusion, headache, double vision, blurry vision, n/v, numbness, weakness, tingling. Review of Systems 10 point ROS is obtained and negative except the ones mentioned in the HPI Objective Vitals: Vitals: 11/09/23 0433 BP: 124/75 Pulse: 68 Resp: 18 Temp: 36.5 C (97.7 F) SpO2: 98% Exam: Constitutional: No acute distress Resp: breathing comfortably Cardio: well perfused GI: nondistended MSK: full range of motion Neuro: No acute distress, A&Ox3 Cranial Nerves II-XII: PERRL, EOMI, Face symmetric, Facial SILT, Palate/Tongue midline and symmetric, shoulder shrugs symmetric, hearing intact to finger rubs bilaterally Motor: RUE D5 B5 T5 HG/IO 5 RLE HF5 KE5 DF/PF 5 LUE D5 B5 T5 HG/IO 5 LLE HF4+ KE4 (chronic) DF/PF 5 No Hoffmans or Clonus Sensation: SILT throughout all extremities Psych: appropriate Skin: no obvious lesions Medical History 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 Surgical History Past Surgical History: Procedure Laterality Date COLONOSCOPY 09/22/2011 Colonoscopy OTHER SURGICAL HISTORY 01/03/2019 section OTHER SURGICAL HISTORY 02/11/2019 Cholecystectomy OTHER SURGICAL HISTORY 02/11/2019 Tubal ligation OTHER SURGICAL HISTORY 02/11/2019 Dilation and curettage Medications Current Outpatient Medications Medication Instructions atenolol (TENORMIN) 50 mg, oral, 2 times daily baclofen (LIORESAL) 10 mg, oral, 2 times daily cholecalciferol (VITAMIN D-3) 2,000 Units, oral, Daily cinnamon 500 mg capsule oral, 2 times daily dulaglutide 3 mg, subcutaneous, Once Weekly ferrous gluconate 324 (38 Fe) mg tablet 38 mg of iron, oral, Daily with breakfast lisinopril 5 mg, oral, Daily magnesium oxide (MAG-OX) 200 mg, oral, Daily multivit-minerals/folic acid (ADULT MULTIVITAMIN GUMMIES ORAL) 1 each, oral, Daily potassium chloride ER (Micro-K) 10 mEq ER capsule 10 mEq, oral, Daily rivaroxaban (XARELTO) 20 mg, oral, Daily rosuvastatin (CRESTOR) 10 mg, oral, Nightly triamterene-hydrochlorothiazid (Maxzide-25) 37.5-25 mg tablet 1 tablet, oral, Daily venlafaxine XR (EFFEXOR-XR) 75 mg, oral, Daily Diagnostic Results: Lab Results Component Value Date WBC 8.8 11/09/2023 HGB 10.8 (L) 11/09/2023 HCT 34.5 (L) 11/09/2023 MCV 85 11/09/2023 PLT 263 11/09/2023 Lab Results Component Value Date CREATININE 0.80 11/09/2023 BUN 14 11/09/2023 NA 132 (L) 11/09/2023 K 3.7 11/09/2023 CL 96 (L) 11/09/2023 CO2 25 11/09/2023 Lab Results Component Value Date INR 1.4 (H) 09/10/2022 INR 5.4 (AA) 09/08/2022 PROTIME 16.8 (H) 09/10/2022 PROTIME 63.6 (AA) 09/08/2022 === 11/06/23 === CT CHEST ABDOMEN PELVIS WO CONTRAST - Impression - CHEST: 1. Endplate changes involving T6-7 and T7-8, indicative of discitis/osteomyelitis. Prominent prevertebral soft tissue swelling noted, indicative of phlegmonous changes. Evaluation for an abscess is limited due to lack of IV contrast. 2. Multiple right lung nodules. The largest is measured at 1.1 x 1.0 cm in the right middle lobe. Malignancy cannot be excluded. Follow-up with PET CT scan is recommended. 3. Coronary artery calcifications. ABDOMEN/PELVIS: 1. Evaluation for an abscess is limited due to lack of IV contrast. 2. Left-sided nephrolithiasis, with no evidence of hydronephrosis. 3. Calcified uterine fibroids. Signed by Mychal Chavez MD === 11/06/23 === MR LUMBAR SPINE W AND WO CONTRAST - Impression - Multilevel degenerative disc disease and facet arthrosis most pronounced at L3-L4 with severe spinal canal and moderate bilateral neural foraminal stenosis. Mildly heterogeneous bone marrow signal is nonspecific. There is a hemangioma within the L4 vertebral body. Otherwise no focal lesion within the lumbar spine. I personally reviewed the images/study and I agree with the findings as stated. This study was interpreted at [place], [place]. MACRO: None Signed by: Lynda Bal 11/06/2023 1:29 PM Dictation workstation: [id number] Assessment/Plan Assessment: Daryn is a 77 y.o. female with h/o Afib on Xarelto, HTN, HLD, T2DM, T2DM, SIADH, COPD, anxiety p/w back pain x 3wks, bedbound at baseline. MRI TS T6-9 discitis/OM, pre-vertebral phlegmon, CT CAP multiple R lung nodules Plan: Naff primary Recommend biopsy with IR Recommend ID consult for antibiotic management Con't vanc and zosyn Rec ESR, CRP, Bcx Will continue to follow Bobby Gonzalez MD Plan not finalized until note signed by attending documented in this [facility] Work Phone: [phone]) 741-157008-12-2024 Hospital Discharge instructions* Discharge Instructions* Elias Pappas - 11/19/2023 1:51 PM EDT Dear Ms. Shah, You came to the hospital due to back pain. Images of your spine showed evidence of a bone infectionso you were started on some strong antibiotics to treat it. You were given a PICC line because a bone infection usually requires 6 weeks of antibiotics through an IV. You got a back surgery called a laminectomy because there was some concern there was an abscess that resulted on compression of the spinal cord. You did really well after surgery and your pain was well controlled. We recommended you go to a long-term facility for a period of time to get help receiving the medication and also to get some of your strength back before going home. TO-DO: -PET-CT - this is to follow up on the lung nodules that were seen on CT scan APPOINTMENTS: 12/04/23 - Neurosurgery follow up 12/18/23 - PCP follow up 12/26/23 - Infectious Disease follow up 02/28/24 - 3 month post-op neurosurgery follow up 07/18/24 - Cardiology follow up It was a pleasure taking care of you and we wish you the best in your recovery, Your Care Team * Attachments The following attachments cannot be sent through Care Everywhere. * Peripherally-Inserted Central Catheter Discharge Instructions ([place]) * Osteomyelitis in adults ([place]) documented in this [facility] Work Phone: [phone]) 725-535208-06-2024 History and physical note* Jadyn Chan MD - 11/13/2023 8:00 AM EDT H&P reviewed. The patient was examined and there are no changes to the H&P. Source Note - Bobby Gonzalez MD - 11/09/2023 3:00 AM EDT Inpatient consult to Neurosurgery Consult performed by: Bobby Gonzalez MD Consult ordered by: Ru Ortega MD Date of Service: 11/09/2023 Attending Provider: Ru Ortega MD Reason for Consultation: Daryn Shah is being seen today for a consult requested by Ru Ortega MD for discitis. Subjective History of Present Illness: Daryn is a 77 y.o. female with h/o Afib on Xarelto, HTN, HLD, T2DM, T2DM, SIADH, COPD, anxiety p/w back pain x 3wks, bedbound at baseline. Patient denies trauma, injection, prior spine surgery. She reports chronic LLE pain since she can remember. She is bedbound at baseline, son is primary caregiver. She takes Xarelto which she last took 8/1AM. Denies fever, chills, dizziness, confusion, headache, double vision, blurry vision, n/v, numbness, weakness, tingling. Review of Systems 10 point ROS is obtained and negative except the ones mentioned in the HPI Objective Vitals: Vitals: 11/09/23 0433 BP: 124/75 Pulse: 68 Resp: 18 Temp: 36.5 C (97.7 F) SpO2: 98% Exam: Constitutional: No acute distress Resp: breathing comfortably Cardio: well perfused GI: nondistended MSK: full range of motion Neuro: No acute distress, A&Ox3 Cranial Nerves II-XII: PERRL, EOMI, Face symmetric, Facial SILT, Palate/Tongue midline and symmetric, shoulder shrugs symmetric, hearing intact to finger rubs bilaterally Motor: RUE D5 B5 T5 HG/IO 5 RLE HF5 KE5 DF/PF 5 LUE D5 B5 T5 HG/IO 5 LLE HF4+ KE4 (chronic) DF/PF 5 No Hoffmans or Clonus Sensation: SILT throughout all extremities Psych: appropriate Skin: no obvious lesions Medical History 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 Surgical History Past Surgical History: Procedure Laterality Date COLONOSCOPY 09/22/2011 Colonoscopy OTHER SURGICAL HISTORY 01/03/2019 section OTHER SURGICAL HISTORY 02/11/2019 Cholecystectomy OTHER SURGICAL HISTORY 02/11/2019 Tubal ligation OTHER SURGICAL HISTORY 02/11/2019 Dilation and curettage Medications Current Outpatient Medications Medication Instructions atenolol (TENORMIN) 50 mg, oral, 2 times daily baclofen (LIORESAL) 10 mg, oral, 2 times daily cholecalciferol (VITAMIN D-3) 2,000 Units, oral, Daily cinnamon 500 mg capsule oral, 2 times daily dulaglutide 3 mg, subcutaneous, Once Weekly ferrous gluconate 324 (38 Fe) mg tablet 38 mg of iron, oral, Daily with breakfast lisinopril 5 mg, oral, Daily magnesium oxide (MAG-OX) 200 mg, oral, Daily multivit-minerals/folic acid (ADULT MULTIVITAMIN GUMMIES ORAL) 1 each, oral, Daily potassium chloride ER (Micro-K) 10 mEq ER capsule 10 mEq, oral, Daily rivaroxaban (XARELTO) 20 mg, oral, Daily rosuvastatin (CRESTOR) 10 mg, oral, Nightly triamterene-hydrochlorothiazid (Maxzide-25) 37.5-25 mg tablet 1 tablet, oral, Daily venlafaxine XR (EFFEXOR-XR) 75 mg, oral, Daily Diagnostic Results: Lab Results Component Value Date WBC 8.8 11/09/2023 HGB 10.8 (L) 11/09/2023 HCT 34.5 (L) 11/09/2023 MCV 85 11/09/2023 PLT 263 11/09/2023 Lab Results Component Value Date CREATININE 0.80 11/09/2023 BUN 14 11/09/2023 NA 132 (L) 11/09/2023 K 3.7 11/09/2023 CL 96 (L) 11/09/2023 CO2 25 11/09/2023 Lab Results Component Value Date INR 1.4 (H) 09/10/2022 INR 5.4 (AA) 09/08/2022 PROTIME 16.8 (H) 09/10/2022 PROTIME 63.6 (AA) 09/08/2022 === 11/06/23 === CT CHEST ABDOMEN PELVIS WO CONTRAST - Impression - CHEST: 1. Endplate changes involving T6-7 and T7-8, indicative of discitis/osteomyelitis. Prominent prevertebral soft tissue swelling noted, indicative of phlegmonous changes. Evaluation for an abscess is limited due to lack of IV contrast. 2. Multiple right lung nodules. The largest is measured at 1.1 x 1.0 cm in the right middle lobe. Malignancy cannot be excluded. Follow-up with PET CT scan is recommended. 3. Coronary artery calcifications. ABDOMEN/PELVIS: 1. Evaluation for an abscess is limited due to lack of IV contrast. 2. Left-sided nephrolithiasis, with no evidence of hydronephrosis. 3. Calcified uterine fibroids. Signed by Mychal Chavez MD === 11/06/23 === MR LUMBAR SPINE W AND WO CONTRAST - Impression - Multilevel degenerative disc disease and facet arthrosis most pronounced at L3-L4 with severe spinal canal and moderate bilateral neural foraminal stenosis. Mildly heterogeneous bone marrow signal is nonspecific. There is a hemangioma within the L4 vertebral body. Otherwise no focal lesion within the lumbar spine. I personally reviewed the images/study and I agree with the findings as stated. This study was interpreted at [place], [place]. MACRO: None Signed by: Lynda Bal 11/06/2023 1:29 PM Dictation workstation: [id number] Assessment/Plan Assessment: Daryn is a 77 y.o. female with h/o Afib on Xarelto, HTN, HLD, T2DM, T2DM, SIADH, COPD, anxiety p/w back pain x 3wks, bedbound at baseline. MRI TS T6-9 discitis/OM, pre-vertebral phlegmon, CT CAP multiple R lung nodules Plan: Naff primary Recommend biopsy with IR Recommend ID consult for antibiotic management Con't vanc and zosyn Rec ESR, CRP, Bcx Will continue to follow Bobby Gonzalez MD Plan not finalized until note signed by attending * Eulalia Champagne MD - 11/09/2023 3:23 AM EDT MEDICINE ADMISSION NOTE History of Present Illness Ms Shah is a 77 y.o F w/ PMHx of Afib (on Xeralto), COPD (02?), DMII (A1c 7.2% 11/23 and Cellulitis presents as a transfer from [facility] to [facility] for work up of newly found multiple large lung nodules c/f metastatic disease. At baseline patient is non-ambulatory and uses motorized scooter inside the house. She is bedbound most of the day and her primary caregiver is her son who is currently admitted at [facility]. Patient was in her usual state of health until 4 weeks ago at which time she noted back spasms while in rehab.She was prescribed baclofen with some relief. When she returned home she noted difficulty getting in and out of her hospital bed. She though it was due to the baclofen, therefore she stopped taking the medication. A few days later, she reports onset of dull, constant pain that progressively worsened. She reports the pain being so severe, causing her to cry. She rated her pain 8/10, and was mainlyin her upper back. She denies loss of bladder and bowel function. She reports numbness at baseline due to DM, however she does report worsening weakness in upper and lower extremities bilaterally. She states the reason for presenting to the hospital was that she could no longer lay on her back due to severity of her pain. She denies any GIRARD, lightheadedness, dizziness, CP, SOB, Palpitations, N/V and abdominal pain. She denies smoking history, however she does endorse extensive second hand smoking due to her late . She denies recent falls or trauma to her back. In the ED, VS w/ the exception of tachycardia (105). ECG noted Afib at 96bpm, no ST or T wave changes noted. Initial labs significant for hyponatremia (133), SANDRA (Cr 1.12, bl cr 0.7-0.80), Hgb 11.6 (bl 12), and UA w/ +LE BP 138/85 Pulse 70 Temp 36.5 C (97.7 F) Resp 18 Ht 1.702 m (5' 7.01) Wt 94.6 kg (208 lb 8.9 oz) SpO2 98% BMI 32.66 kg/m Labs: Results from last 7 days Lab Units 11/08/23 0523 11/07/23 0422 11/06/23 0513 WBC AUTO x10*3/uL 7.8 7.8 10.8 HEMOGLOBIN g/dL 10.3* 9.9* 11.6* HEMATOCRIT % 33.3* 32.4* 37.0 PLATELETS AUTO x10*3/uL 228 246 353 Results from last 7 days Lab Units 11/08/23 0523 11/07/23 0422 11/06/23 0513 SODIUM mmol/L -- 133* 133* POTASSIUM mmol/L -- 3.4* 3.8 CHLORIDE mmol/L -- 100 96* CO2 mmol/L -- 26 26 BUN mg/dL -- 21 29* CREATININE mg/dL 0.87 0.92 1.12* CALCIUM mg/dL -- 8.1* 9.2 Results from last 7 days Lab Units 11/06/23 0513 ALK PHOS U/L 133 BILIRUBIN TOTAL mg/dL 0.5 PROTEIN TOTAL g/dL 7.4 ALT U/L 10 AST U/L 14 Past Medical History 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 She has never used smokeless tobacco. She reports that she does not drink alcohol and does not use drugs. Family History Family History Problem Relation Name Age of Onset Cancer Mother Alzheimer's disease Mother Other (cardiac disorder) Mother Breast cancer Mother Cystic fibrosis Brother Diabetes Other Allergies Patient has no known allergies. Physical Exam Physical Exam Constitutional: General: She is not in acute distress. Appearance: She is obese. She is not toxic-appearing. HENT: Head: Normocephalic and atraumatic. Nose: Nose normal. Mouth/Throat: Mouth: Mucous membranes are moist. Pharynx: Oropharynx is clear. Eyes: General: No scleral icterus. Right eye: No discharge. Extraocular Movements: Extraocular movements intact. Conjunctiva/sclera: Conjunctivae normal. Pupils: Pupils are equal, round, and reactive to light. Cardiovascular: Rate and Rhythm: Normal rate and regular rhythm. Pulses: Normal pulses. Heart sounds: Normal heart sounds. No murmur heard. No gallop. Pulmonary: Effort: Pulmonary effort is normal. No respiratory distress. Breath sounds: Rales present. No wheezing. Comments: RLL rales, diminished BS in BL upper lobes and LLL Abdominal: General: Bowel sounds are normal. There is distension. Tenderness: There is no abdominal tenderness. There is no guarding or rebound. Musculoskeletal: General: Normal range of motion. Right lower leg: Edema present. Left lower leg: Edema present. Comments: [place] appearing BL lower extremities. Skin: General: Skin is warm. Coloration: Skin is not jaundiced. Findings: Lesion present. Neurological: General: No focal deficit present. Mental Status: She is alert and oriented to person, place, and time. Comments: Motor and sensation intact in UE and LE bilaterally Psychiatric: Comments: Depressed mood Medications Scheduled medications atenolol, 50 mg, oral, BID cholecalciferol, 2,000 Units, oral, Daily docusate sodium, 100 mg, oral, BID insulin lispro, 0-10 Units, subcutaneous, q4h piperacillin-tazobactam, 3.375 g, intravenous, q6h polyethylene glycol, 17 g, oral, Daily rivaroxaban, 20 mg, oral, Daily rosuvastatin, 10 mg, oral, Nightly triamterene-hydrochlorothiazid, 1 tablet, oral, Daily vancomycin, 1,250 mg, intravenous, q24h venlafaxine XR, 75 mg, oral, Daily Continuous medications PRN medications PRN medications: acetaminophen, dextrose, dextrose, glucagon, ipratropium- albuteroL, oxyCODONE, vancomycin === 12/08/19 === US RENAL COMPLETE - Impression - No hydronephrosis. 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 Hypoechoic upper pole lesion left kidney. Does not have definitive characteristics of cyst. Further imaging could be obtained with dedicated MRI CT of the kidneys. === 11/06/23 === CT CHEST ABDOMEN PELVIS WO CONTRAST - Impression - CHEST: 1. Endplate changes involving T6-7 and T7-8, indicative of discitis/osteomyelitis. Prominent prevertebral soft tissue swelling noted, indicative of phlegmonous changes. Evaluation for an abscess is limited due to lack of IV contrast. 2. Multiple right lung nodules. The largest is measured at 1.1 x 1.0 cm in the right middle lobe. Malignancy cannot be excluded. Follow-up with PET CT scan is recommended. 3. Coronary artery calcifications. ABDOMEN/PELVIS: 1. Evaluation for an abscess is limited due to lack of IV contrast. 2. Left-sided nephrolithiasis, with no evidence of hydronephrosis. 3. Calcified uterine fibroids. Signed by Mychal Chavez MD Susceptibility data from last 90 days. Collected Specimen Info Organism Ampicillin Cefazolin Cefazolin (uncomplicated UTIs only) Ciprofloxacin Gentamicin Nitrofurantoin Piperacillin/Tazobactam Tetracycline Trimethoprim/Sulfamethoxazole 10/10/23 Urine from Clean Catch/Voided Proteus mirabilis S S S S S R S R S No lab exists for component: EARNEST @ANTIBIOTCS@ Assessment/Plan Ms Shah is a 77 y.o F w/ PMHx of Afib (on Xeralto), COPD (02?), DMII (A1c 7.2% 03/01 and Cellulitis presents as a transfer from [facility] to [facility] for work up of newly found multiple large lung nodules c/f metastatic disease. MRI thoracic spine concerning for T6-T8 abnormal signaling suggestive of discitis osteomyelitis, small abscess at T1 and epidural enhancement extending from T6-T9 suggestive of Phlegmon. Patient HDS, and on RA. Given concern for severe thoracic spinal narrowing, small abscess and phlegmon, neurosurgery was consulted. #T6-T8 C/f Discitis/Osteomyelitis #Small Abscess #Phlegmon T6-T9 -Pt reports worsening upper back pain that initially started 4wks ago. Described pain as sharp, andconstant, rates pain 8/10 and without any relief after taking Tylenol. -Denies loss of bladder an bowel function. 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 Some weakness in bl LE. - MRI thoracic spine concerning for T6-T8 abnormal signaling suggestive of discitis osteomyelitis, small abscess at T1 and epidural enhancement extending from T6-T9 suggestive of Phlegmon. This results in severe spinal canal stenosis at these levels. Plan: -Neurosurgery consulted, appreciate recs -IV Vanc and Zosyn -Repeat blood cx pending #Multiple R. Lung Nodules -CT CAP w/ IV con 11/05: The largest is measured at 1.1 x 1.0 cm in the right middle lobe. Malignancy cannot be excluded -denies cough, SOB, night sweats, and unintended weight loss. Denies tobacco history, but endorses second hand smoking exposure. Plan: -consider PET CT Scan given concern for malignancy #UTI -UA 11/05: LE +, 1+ blood in urine, 1+ bacteria in urine -Urine culture pending -History of Proteus Mirabella's in the urine in the beginning of October of this year -Denies dysuria, urinary frequency and suprapubic tenderness Plan: -Repeat UA pending #Atrial Fibrillation -C/w atenolol for rate control -C/w Xarelto for anticoagulation. #Hypertension -Holding home meds iso hypotension #Anxiety and Depression -Continue Effexor. #COPD (not in exacerbation) -on RA -Denies shortness of breath, cough and sputum production Plan: -Duonebs and Albuterol PRN #DM II -A1c 7.2% -Home regimen: Dulaglutide 3 mg weekly injections, -SSI #2 -Hypoglycemia protocol F:PRN E:PRN N: Dietary Orders (From admission, onward) Start Ordered 11/09/23214 NPO Diet; Effective now Diet effective now 11/09/23216 A: pIV DVT: Rivaroxaban 20 mg (home med) GI: Not indicated Bowel Regimen: Miralax, docusate Code Status: DNR and No Intubation (confirmed on admission) NOK: Eva Shah (son): [phone] Not yet staffed with the attending. Eulalia Champagne MD PGY-2 Internal Medicine Associated attestation - Ru Ortega MD - 11/09/2023 12:46 PM EDT I saw and evaluated the patient. I personally obtained the pickering and critical portions of the historyand physical exam or was physically present for pickering and critical portions performed by the resident/student. I reviewed the resident/student's documentation and discussed the patient with the resident /student. I agree with the resident/student's medical decision making as documented in the note with the exception/addition of the following: Patient is 77-year-old female with past medical history as per housestaff sent here for further evaluation spinal lesions/neurosurgery evaluation. Patient started having severe back pain which rapidly progressed over her mid upper back. She denies any falls, trauma, accidents. No fevers/chills, no n ausea/vomiting, no abdominal pain, no chest pain, no cough, no shortness of breath, no sore throat,no sinus pain, no diarrhea or constipation, no dysuria or urinary frequency, and no new rashes. Patient denies any open wounds but had been in the hospital recently. Patient MRI showed concerns for os teomyelitis/discitis mid-lower thoracic spine. Patient also had an imaging incidentally finding of pulmonary nodules. Patient has had some nodules dating back years Labs and imaging reviewed EKG with A-fib and PVC. No acute ischemic changes Back pain: Appears consistent with vertebral osteomyelitis/discitis. Overall lower suspicion related to small pulmonary nodules. -Consulting IR for vertebral biopsy. Will send for culture and pathology to rule out mets -Consulting infectious disease service. Will determine choice of antibiotics and duration. Suspect patient will need 6 weeks IV antibiotics. May be beneficial to hold antibiotics over the weekend assuming patient remains hemodynamically stable in hopes to improve the yield of the biopsy culture. Will discuss with infectious disease service after they have had a chance to assess patient -Follow-up blood cultures. So far remain no growth to date -Follow-up neurosurgery recommendation. No plans for OR at this time -Pain control SIADH: Reportedly chronic issue -Monitor renal function -Some drop significantly may need to curtail fluid intake -Stop Maxide Cardiovascular: Hypertension and A-fib. Patient reports she is not sure why she takes too much medication since her blood pressure has often ran too low and she has had to hold her medications in thepast -Continue atenolol -Continue statin -Hold Xarelto in anticipation for vertebral biopsy -Holding Maxide and lisinopril at this time. May be able to resume lisinopril as blood pressure dictates. Lung nodules: -Follow-up vertebral biopsy -Consider outpatient PET scan/pulmonary follow-up Hypomagnesemia: -Replete magnesium with IV magnesium COPD: Patient denies having ever had COPD or taking inhalers -Can monitor -Incentive spirometry Diabetes mellitus: -Continue sliding scale insulin -Diabetic diet Psychiatry: -Continue Effexor DVT prophylaxis Physical therapy/Occupational Therapy. Patient states she has been bedbound/wheelchair-bound for approximately 5 to 6 years. She states she can move her legs but they have grown too weak and she believes it all started when her son was and the [id number] and grandchild left the home le aving patient depressed. documented in [facility] Work Phone: [phone]) 970-198307-08-2024 Nurse Note* Fátima Guadarrama RN - 10/15/2023 5:52 PM EDT Called Robbie Reyes and gave report. [facility]07-08-2024 Nurse Note* Fátima Guadarrama RN - 10/15/2023 5:52 PM EDT Called Robbie Reyes and gave report. * Yennifer Gregg RN - 10/12/2023 6:34 PM EDT 7 am to 7 pm 963 ml intake only. Pt is declining meals. documented in this encounterUn[facility] Work Phone: [phone]) 406-338307-08-2024 Hospital Discharge instructions* Discharge Instructions* Sonya Hackett RN - 10/15/2023 5:05 PM EDT Hyponatremia The Basics Written by the doctors and editors at [facility] What is hyponatremia? -- Hyponatremia is the medical term for having too little sodium in the blood. Sodium is a substance called an electrolyte. Normally, your body has a specific balance of electrolytes. This is important to keep your cells working normally. When a person has hyponatremia, their body holds on to too much water. This dilutes the amount of sodium in the blood, causing the sodium level to be low. What causes hyponatremia? -- Hyponatremia happens when the body holds on to too much water. This can happen because of: ? Certain medical conditions that cause your body to hold on to too much water. These include: ? Heart failure, a type of heart disease in which the heart cannot pump as well as it should ? Cirrhosis, a severe form of liver disease ? SIADH, a condition that happens when your body makes too much of a hormone that helps balance your water level ? Kidney disease ? Some medicines, including a diuretic called hydrochlorothiazide (HCTZ), which makes you urinatea lot ? Drinking too much water. This can happen to: ? Athletes who do intense exercise (such as run marathons) and drink too much water ? People who use the drug ecstasy (ecstasy can make you feel thirsty and drink too much) ? People who are mentally ill and feel as though they cannot get enough to drink ? Losing a lot of blood (for example, after an injury) ? Long-lasting, severe vomiting or diarrhea (this causes your body to lose both water and sodium) ? Poor diet What are the symptoms of hyponatremia? -- Symptoms can include: ? Nausea and vomiting ? Headache ? Confusion or trouble thinking clearly ? Feeling weak or tired ? Feeling restless or irritable ? Muscle weakness, spasms, or cramps ? Seizures or passing out Hyponatremia can also cause more serious problems, such as brain swelling and nerve damage. Are there tests for hyponatremia? -- Yes. If your doctor or nurse suspects that you have hyponatremia, they will do: ? Blood tests - These check how much sodium is in your blood. ? Urine tests - These can show much sodium you are losing in your urine. You might also need other tests depending on your age, other symptoms, and individual situation. How is hyponatremia treated? -- That depends on what is causing your hyponatremia. If your hyponatremia is caused by another medical problem, such as heart failure, your doctor will want to treat that, too. Severe hyponatremia is treated in the hospital. Treatments might include: ? Limiting the amount of fluid you drink ? Eating salt tablets or getting a saltwater solution into a vein (by IV) When should I call the doctor? -- If you have been treated for hyponatremia, your doctor or nurse should order a blood test to see how the treatment is working. Call your doctor or nurse if: ? Your symptoms come back or get worse. ? You have any new symptoms. ? You have questions about any of your medicines or how to take care of yourself. [facility] Work Phone: [phone]) [phone] Plan of care note* Care Plan - Fátima Guadarrama RN - 10/15/2023 4:36 PM EDT Problem: Nutrition Goal: Oral intake greater 75% Outcome: Progressing Goal: Consume prescribed supplement Outcome: Progressing Goal: Adequate PO fluid intake Outcome: Progressing Goal: BG 80-180 mg/dL Outcome: Progressing Goal: Lab values WNL Outcome: Progressing Goal: Electrolytes WNL Outcome: Progressing Goal: Promote healing Outcome: Progressing Goal: Reduce weight from edema/fluid Outcome: Progressing Problem: Skin Goal: Decreased wound size/increased tissue granulation at next dressing change Outcome: Progressing Goal: Participates in plan/prevention/treatment measures Outcome: Progressing Goal: Prevent/minimize sheer/friction injuries Outcome: Progressing Goal: Promote/optimize nutrition Outcome: Progressing Goal: Prevent/manage excess moisture Outcome: Progressing Goal: Promote skin healing Outcome: Progressing Problem: Discharge Planning Goal: Discharge to home or other facility with appropriate resources Outcome: Progressing The patient's goals for the shift include use the call light The clinical goals for the shift include pain control [facility] Work Phone: [phone]) 821-924907-08-2024 Miscellaneous Notes* Care Plan - Fátima Guadarrama RN - 10/15/2023 4:36 PM EDT Problem: Nutrition Goal: Oral intake greater 75% Outcome: Progressing Goal: Consume prescribed supplement Outcome: Progressing Goal: Adequate PO fluid intake Outcome: Progressing Goal: BG 80-180 mg/dL Outcome: Progressing Goal: Lab values WNL Outcome: Progressing Goal: Electrolytes WNL Outcome: Progressing Goal: Promote healing Outcome: Progressing Goal: Reduce weight from edema/fluid Outcome: Progressing Problem: Skin Goal: Decreased wound size/increased tissue granulation at next dressing change Outcome: Progressing Goal: Participates in plan/prevention/treatment measures Outcome: Progressing Goal: Prevent/minimize sheer/friction injuries Outcome: Progressing Goal: Promote/optimize nutrition Outcome: Progressing Goal: Prevent/manage excess moisture Outcome: Progressing Goal: Promote skin healing Outcome: Progressing Problem: Discharge Planning Goal: Discharge to home or other facility with appropriate resources Outcome: Progressing The patient's goals for the shift include use the call light The clinical goals for the shift include pain control * Significant Event - BILL Vizcaino - 10/15/2023 3:55 PM EDT 7000 Physician Certification As the individual's attending physician , I certify that the above-named patient: Is being discharged to a nursing facility directly from a hospital after receiving acute patient care at the hospital, and Requires nursing facility services for the condition for which he/she received care in the hospital, and Requires fewer than 30 days of nursing facility services, no later than the date of discharge. I certify that inpatient care is required at the level recommended above. To the best of my knowledge, all information provided about the individual is a true and accurate reflection of the individual's condition. * Care Plan - Ethel Iverson RN - 10/14/2023 10:12 AM EDT Problem: Nutrition Goal: Oral intake greater 75% Outcome: Progressing Goal: Consume prescribed supplement Outcome: Progressing Goal: Adequate PO fluid intake Outcome: Progressing Goal: BG 80-180 mg/dL Outcome: Progressing Goal: Lab values WNL Outcome: Progressing Goal: Electrolytes WNL Outcome: Progressing Goal: Promote healing Outcome: Progressing Goal: Reduce weight from edema/fluid Outcome: Progressing Problem: Skin Goal: Decreased wound size/increased tissue granulation at next dressing change Outcome: Progressing Flowsheets (Taken 10/14/2023 1011) Decreased wound size/increased tissue granulation at next dressing change: Promote sleep for wound healing Goal: Participates in plan/prevention/treatment measures Outcome: Progressing Flowsheets (Taken 10/14/2023 101) Participates in plan/prevention/treatment measures: Increase activity/out of bed for meals Goal: Prevent/minimize sheer/friction injuries Outcome: Progressing Flowsheets (Taken 10/14/2023 101) Prevent/minimize sheer/friction injuries: Use pull sheet Goal: Promote/optimize nutrition Outcome: Progressing Flowsheets (Taken 10/14/20231010) Promote/optimize nutrition: Consume > 50% meals/supplements Goal: Prevent/manage excess moisture Outcome: Progressing Flowsheets (Taken 10/14/20231010) Prevent/manage excess moisture: Moisturize dry skin Goal: Promote skin healing Outcome: Progressing Flowsheets (Taken 10/14/20231010) Promote skin healing: Turn/reposition every 2 hours/use positioning/transfer devices Problem: Discharge Planning Goal: Discharge to home or other facility with appropriate resources Outcome: Progressing Problem: Chronic Conditions and Co-morbidities Goal: Patient's chronic conditions and co-morbidity symptoms are monitored and maintained or improved Outcome: Progressing Problem: Diabetes Goal: Achieve decreasing blood glucose levels by end of shift Outcome: Progressing Goal: Increase stability of blood glucose readings by end of shift Outcome: Progressing Goal: Decrease in ketones present in urine by end of shift Outcome: Progressing Goal: Maintain electrolyte levels within acceptable range throughout shift Outcome: Progressing Goal: Maintain glucose levels >70mg/dl to <250mg/dl throughout shift Outcome: Progressing Goal: No changes in neurological exam by end of shift Outcome: Progressing Goal: Learn about and adhere to nutrition recommendations by end of shift Outcome: Progressing Goal: Vital signs within normal range for age by end of shift Outcome: Progressing Goal: Increase self care and/or family involovement by end of shift Outcome: Progressing Goal: Receive DSME education by end of shift Outcome: Progressing Problem: Pain Goal: Takes deep breaths with improved pain control throughout the shift Outcome: Progressing Goal: Turns in bed with improved pain control throughout the shift Outcome: Progressing Goal: Walks with improved pain control throughout the shift Outcome: Progressing Goal: Performs ADL's with improved pain control throughout shift Outcome: Progressing Goal: Participates in PT with improved pain control throughout the shift Outcome: Progressing Goal: Free from opioid side effects throughout the shift Outcome: Progressing Goal: Free from acute confusion related to pain meds throughout the shift Outcome: Progressing Problem: Fall/Injury Goal: Verbalize understanding of personal risk factors for fall in the hospital Outcome: Progressing Goal: Verbalize understanding of risk factor reduction measures to prevent injury from fall in the home Outcome: Progressing Goal: Use assistive devices by end of the shift Outcome: Progressing Goal: Pace activities to prevent fatigue by end of the shift Outcome: Progressing The patient's goals for the shift include use the call light The clinical goals for the shift include pain control Over the shift, the patient did not make progress toward the following goals. Barriers to progression include . Recommendations to address these barriers include . * Care Plan - Ethel Iverson RN - 10/13/2023 8:14 AM EDT Problem: Nutrition Goal: Oral intake greater 75% Outcome: Progressing Goal: Consume prescribed supplement Outcome: Progressing Goal: Adequate PO fluid intake Outcome: Progressing Goal: BG 80-180 mg/dL Outcome: Progressing Goal: Lab values WNL Outcome: Progressing Goal: Electrolytes WNL Outcome: Progressing Goal: Promote healing Outcome: Progressing Goal: Reduce weight from edema/fluid Outcome: Progressing Problem: Skin Goal: Decreased wound size/increased tissue granulation at next dressing change Outcome: Progressing Flowsheets (Taken 10/13/2023812) Decreased wound size/increased tissue granulation at next dressing change: Promote sleep for wound healing Goal: Participates in plan/prevention/treatment measures Outcome: Progressing Flowsheets (Taken 10/13/2023812) Participates in plan/prevention/treatment measures: Increase activity/out of bed for meals Goal: Prevent/minimize sheer/friction injuries Outcome: Progressing Flowsheets (Taken 10/13/2023812) Prevent/minimize sheer/friction injuries: Use pull sheet Goal: Promote/optimize nutrition Outcome: Progressing Flowsheets (Taken 10/13/2023812) Promote/optimize nutrition: Consume > 50% meals/supplements Goal: Prevent/manage excess moisture Outcome: Progressing Flowsheets (Taken 10/13/2023812) Prevent/manage excess moisture: Moisturize dry skin Goal: Promote skin healing Outcome: Progressing Flowsheets (Taken 10/13/2023812) Promote skin healing: Turn/reposition every 2 hours/use positioning/transfer devices Problem: Discharge Planning Goal: Discharge to home or other facility with appropriate resources Outcome: Progressing Problem: Chronic Conditions and Co-morbidities Goal: Patient's chronic conditions and co-morbidity symptoms are monitored and maintained or improved Outcome: Progressing Problem: Diabetes Goal: Achieve decreasing blood glucose levels by end of shift Outcome: Progressing Goal: Increase stability of blood glucose readings by end of shift Outcome: Progressing Goal: Decrease in ketones present in urine by end of shift Outcome: Progressing Goal: Maintain electrolyte levels within acceptable range throughout shift Outcome: Progressing Goal: Maintain glucose levels >70mg/dl to <250mg/dl throughout shift Outcome: Progressing Goal: No changes in neurological exam by end of shift Outcome: Progressing Goal: Learn about and adhere to nutrition recommendations by end of shift Outcome: Progressing Goal: Vital signs within normal range for age by end of shift Outcome: Progressing Goal: Increase self care and/or family involovement by end of shift Outcome: Progressing Goal: Receive DSME education by end of shift Outcome: Progressing Problem: Pain Goal: Takes deep breaths with improved pain control throughout the shift Outcome: Progressing Goal: Turns in bed with improved pain control throughout the shift Outcome: Progressing Goal: Walks with improved pain control throughout the shift Outcome: Progressing Goal: Performs ADL's with improved pain control throughout shift Outcome: Progressing Goal: Participates in PT with improved pain control throughout the shift Outcome: Progressing Goal: Free from opioid side effects throughout the shift Outcome: Progressing Goal: Free from acute confusion related to pain meds throughout the shift Outcome: Progressing Problem: Fall/Injury Goal: Verbalize understanding of personal risk factors for fall in the hospital Outcome: Progressing Goal: Verbalize understanding of risk factor reduction measures to prevent injury from fall in the home Outcome: Progressing Goal: Use assistive devices by end of the shift Outcome: Progressing Goal: Pace activities to prevent fatigue by end of the shift Outcome: Progressing The patient's goals for the shift include The clinical goals for the shift include monitor pain Over the shift, the patient did not make progress toward the following goals. Barriers to progression include . Recommendations to address these barriers include . * Care Plan - Deonna Barry RN - 10/12/2023 10:06 PM EDT Problem: Nutrition Goal: Oral intake greater 75% Outcome: Progressing Goal: Consume prescribed supplement Outcome: Progressing Goal: Adequate PO fluid intake Outcome: Progressing Goal: BG 80-180 mg/dL Outcome: Progressing Goal: Lab values WNL Outcome: Progressing Goal: Electrolytes WNL Outcome: Progressing Goal: Promote healing Outcome: Progressing Goal: Reduce weight from edema/fluid Outcome: Progressing Problem: Skin Goal: Decreased wound size/increased tissue granulation at next dressing change Outcome: Progressing Goal: Participates in plan/prevention/treatment measures Outcome: Progressing Goal: Prevent/minimize sheer/friction injuries Outcome: Progressing Flowsheets (Taken 10/12/20232205) Prevent/minimize sheer/friction injuries: Use pull sheet Goal: Promote/optimize nutrition Outcome: Progressing Goal: Prevent/manage excess moisture Outcome: Progressing Goal: Promote skin healing Outcome: Progressing Problem: Discharge Planning Goal: Discharge to home or other facility with appropriate resources Outcome: Progressing Problem: Chronic Conditions and Co-morbidities Goal: Patient's chronic conditions and co-morbidity symptoms are monitored and maintained or improved Outcome: Progressing Problem: Diabetes Goal: Achieve decreasing blood glucose levels by end of shift Outcome: Progressing Goal: Increase stability of blood glucose readings by end of shift Outcome: Progressing Goal: Decrease in ketones present in urine by end of shift Outcome: Progressing Goal: Maintain electrolyte levels within acceptable range throughout shift Outcome: Progressing Goal: Maintain glucose levels >70mg/dl to <250mg/dl throughout shift Outcome: Progressing Goal: No changes in neurological exam by end of shift Outcome: Progressing Goal: Learn about and adhere to nutrition recommendations by end of shift Outcome: Progressing Goal: Vital signs within normal range for age by end of shift Outcome: Progressing Goal: Increase self care and/or family involovement by end of shift Outcome: Progressing Goal: Receive DSME education by end of shift Outcome: Progressing Problem: Pain Goal: Takes deep breaths with improved pain control throughout the shift Outcome: Progressing Goal: Turns in bed with improved pain control throughout the shift Outcome: Progressing Goal: Walks with improved pain control throughout the shift Outcome: Progressing Goal: Performs ADL's with improved pain control throughout shift Outcome: Progressing Goal: Participates in PT with improved pain control throughout the shift Outcome: Progressing Goal: Free from opioid side effects throughout the shift Outcome: Progressing Goal: Free from acute confusion related to pain meds throughout the shift Outcome: Progressing Problem: Fall/Injury Goal: Verbalize understanding of personal risk factors for fall in the hospital Outcome: Progressing Goal: Verbalize understanding of risk factor reduction measures to prevent injury from fall in the home Outcome: Progressing Goal: Use assistive devices by end of the shift Outcome: Progressing Goal: Pace activities to prevent fatigue by end of the shift Outcome: Progressing The patient's goals for the shift include The clinical goals for the shift include Pain less than 3/10 through this shift * Care Plan - Yennifer Gregg RN - 10/12/2023 10:17 AM EDT The patient's goals for the shift include The clinical goals for the shift include remain comfortable through this shift Problem: Nutrition Goal: Oral intake greater 75% Outcome: Progressing Goal: Consume prescribed supplement Outcome: Progressing Goal: Adequate PO fluid intake Outcome: Progressing Goal: BG 80-180 mg/dL Outcome: Progressing Goal: Lab values WNL Outcome: Progressing Goal: Electrolytes WNL Outcome: Progressing Goal: Promote healing Outcome: Progressing Goal: Reduce weight from edema/fluid Outcome: Progressing Problem: Skin Goal: Decreased wound size/increased tissue granulation at next dressing change Outcome: Progressing Goal: Participates in plan/prevention/treatment measures Outcome: Progressing Goal: Prevent/minimize sheer/friction injuries Outcome: Progressing Goal: Promote/optimize nutrition Outcome: Progressing Goal: Prevent/manage excess moisture Outcome: Progressing Goal: Promote skin healing Outcome: Progressing Problem: Discharge Planning Goal: Discharge to home or other facility with appropriate resources Outcome: Progressing Problem: Chronic Conditions and Co-morbidities Goal: Patient's chronic conditions and co-morbidity symptoms are monitored and maintained or improved Outcome: Progressing Problem: Diabetes Goal: Achieve decreasing blood glucose levels by end of shift Outcome: Progressing Goal: Increase stability of blood glucose readings by end of shift Outcome: Progressing Goal: Decrease in ketones present in urine by end of shift Outcome: Progressing Goal: Maintain electrolyte levels within acceptable range throughout shift Outcome: Progressing Goal: Maintain glucose levels >70mg/dl to <250mg/dl throughout shift Outcome: Progressing Goal: No changes in neurological exam by end of shift Outcome: Progressing Goal: Learn about and adhere to nutrition recommendations by end of shift Outcome: Progressing Goal: Vital signs within normal range for age by end of shift Outcome: Progressing Goal: Increase self care and/or family involovement by end of shift Outcome: Progressing Goal: Receive DSME education by end of shift Outcome: Progressing Problem: Pain Goal: Takes deep breaths with improved pain control throughout the shift Outcome: Progressing Goal: Turns in bed with improved pain control throughout the shift Outcome: Progressing Goal: Walks with improved pain control throughout the shift Outcome: Progressing Goal: Performs ADL's with improved pain control throughout shift Outcome: Progressing Goal: Participates in PT with improved pain control throughout the shift Outcome: Progressing Goal: Free from opioid side effects throughout the shift Outcome: Progressing Goal: Free from acute confusion related to pain meds throughout the shift Outcome: Progressing Problem: Fall/Injury Goal: Verbalize understanding of personal risk factors for fall in the hospital Outcome: Progressing Goal: Verbalize understanding of risk factor reduction measures to prevent injury from fall in the home Outcome: Progressing Goal: Use assistive devices by end of the shift Outcome: Progressing Goal: Pace activities to prevent fatigue by end of the shift Outcome: Progressing * Care Plan - Yennifer Gregg RN - 10/11/2023 3:10 PM EDT The patient's goals for the shift include The clinical goals for the shift include remain comortable Problem: Discharge Planning Goal: Discharge to home or other facility with appropriate resources Outcome: Progressing Problem: Nutrition Goal: Oral intake greater 75% Outcome: Progressing Goal: Consume prescribed supplement Outcome: Progressing Goal: Adequate PO fluid intake Outcome: Progressing Goal: BG 80-180 mg/dL Outcome: Progressing Goal: Lab values WNL Outcome: Progressing Goal: Electrolytes WNL Outcome: Progressing Goal: Promote healing Outcome: Progressing Goal: Reduce weight from edema/fluid Outcome: Progressing Problem: Diabetes Goal: Achieve decreasing blood glucose levels by end of shift Outcome: Progressing Goal: Increase stability of blood glucose readings by end of shift Outcome: Progressing Goal: Decrease in ketones present in urine by end of shift Outcome: Progressing Goal: Maintain electrolyte levels within acceptable range throughout shift Outcome: Progressing Goal: Maintain glucose levels >70mg/dl to <250mg/dl throughout shift Outcome: Progressing Goal: No changes in neurological exam by end of shift Outcome: Progressing Goal: Learn about and adhere to nutrition recommendations by end of shift Outcome: Progressing Goal: Vital signs within normal range for age by end of shift Outcome: Progressing Goal: Increase self care and/or family involovement by end of shift Outcome: Progressing Goal: Receive DSME education by end of shift Outcome: Progressing Problem: Pain Goal: Takes deep breaths with improved pain control throughout the shift Outcome: Progressing Goal: Turns in bed with improved pain control throughout the shift Outcome: Progressing Goal: Walks with improved pain control throughout the shift Outcome: Progressing Goal: Performs ADL's with improved pain control throughout shift Outcome: Progressing Goal: Participates in PT with improved pain control throughout the shift Outcome: Progressing Goal: Free from opioid side effects throughout the shift Outcome: Progressing Goal: Free from acute confusion related to pain meds throughout the shift Outcome: Progressing Problem: Fall/Injury Goal: Verbalize understanding of personal risk factors for fall in the hospital Outcome: Progressing Goal: Verbalize understanding of risk factor reduction measures to prevent injury from fall in the home Outcome: Progressing Goal: Use assistive devices by end of the shift Outcome: Progressing Goal: Pace activities to prevent fatigue by end of the shift Outcome: Progressing Problem: Skin Goal: Decreased wound size/increased tissue granulation at next dressing change Outcome: Progressing Goal: Participates in plan/prevention/treatment measures Outcome: Progressing Goal: Prevent/minimize sheer/friction injuries Outcome: Progressing Goal: Promote/optimize nutrition Outcome: Progressing * Care Plan - Yennifer Gregg RN - 10/11/2023 3:08 PM EDT The patient's goals for the shift include The clinical goals for the shift include remain comfortable, use call light for any needs through this shift. * Care Plan - Yanira Jones RN - 10/11/2023 4:03 AM EDT Problem: Skin Goal: Prevent/manage excess moisture Outcome: Met Goal: Promote skin healing Outcome: Met Problem: Pain - Adult Goal: Verbalizes/displays adequate comfort level or baseline comfort level Outcome: Met Problem: Safety - Adult Goal: Free from fall injury Outcome: Met Problem: Fall/Injury Goal: Not fall by end of shift Outcome: Met Goal: Be free from injury by end of the shift Outcome: Met The patient's goals for the shift include The clinical goals for the shift include remain comortable * Care Plan - Fátima Guadarrama RN - 10/10/2023 11:22 AM EDT Problem: Nutrition Goal: Less than 5 days NPO/clear liquids Outcome: Progressing Goal: Oral intake greater than 50% Outcome: Progressing Goal: Oral intake greater 75% Outcome: Progressing Goal: Consume prescribed supplement Outcome: Progressing Goal: Adequate PO fluid intake Outcome: Progressing Goal: Nutrition support goals are met within 48 hrs Outcome: Progressing Goal: Nutrition support is meeting 75% of nutrient needs Outcome: Progressing Goal: Tube feed tolerance Outcome: Progressing Goal: BG 80-180 mg/dL Outcome: Progressing Goal: Lab values WNL Outcome: Progressing Goal: Electrolytes WNL Outcome: Progressing Goal: Promote healing Outcome: Progressing Goal: Maintain stable weight Outcome: Progressing Goal: Reduce weight from edema/fluid Outcome: Progressing Goal: Gradual weight gain Outcome: Progressing Goal: Improve ostomy output Outcome: Progressing Problem: Skin Goal: Decreased wound size/increased tissue granulation at next dressing change Outcome: Progressing Flowsheets (Taken 10/10/2023 112) Decreased wound size/increased tissue granulation at next dressing change: Protective dressings over bony prominences Goal: Participates in plan/prevention/treatment measures Outcome: Progressing Flowsheets (Taken 10/10/2023 1121) Participates in plan/prevention/treatment measures: Elevate heels Goal: Prevent/manage excess moisture Outcome: Progressing Flowsheets (Taken 10/10/2023 1121) Prevent/manage excess moisture: Monitor for/manage infection if present Goal: Prevent/minimize sheer/friction injuries Outcome: Progressing Flowsheets (Taken 10/10/2023 1121) Prevent/minimize sheer/friction injuries: HOB 30 degrees or less Goal: Promote/optimize nutrition Outcome: Progressing Flowsheets (Taken 10/10/2023 112) Promote/optimize nutrition: Consume > 50% meals/supplements Goal: Promote skin healing Outcome: Progressing Flowsheets (Taken 10/10/2023 112) Promote skin healing: Rotate device position/do not position patient on device Problem: Pain - Adult Goal: Verbalizes/displays adequate comfort level or baseline comfort level Outcome: Progressing Problem: Safety - Adult Goal: Free from fall injury Outcome: Progressing Problem: Discharge Planning Goal: Discharge to home or other facility with appropriate resources Outcome: Progressing The patient's goals for the shift include The clinical goals for the shift include to remain comfortable throughout the shift. * Treatment Plan - MACARENA Gamboa - 10/10/2023 9:49 AM EDT Pt admitted after midnight. Dr. Mills consulted due to continued hyponatremia despite IVF. Also awaiting therapy recommendations, due to bladder spasms will add pyridium General Appearance: AAO x 3, not in acute distress Skin: skin color pink, warm, and dry; no suspicious rashes or lesions Eyes : PERRL, EOM's intact ENT: mucous membranes pink and moist Neck: normocephalic Respiratory: lungs clear to auscultation anteriorly; no wheezing, rhonchi, or crackles. Heart: irregular rate and rhythm. telemetry shows Sinus rhythm Abdomen: positive bowel sounds x4, soft, nontender, obese Extremities: no edema noted nemo lower ext, Peripheral pulses: normal x4 extremities Neuro: alert, coherent and conversant, no focal motor deficits. documented in this [facility] Work Phone: [phone]) 911-592907-08-2024 Note* Significant Event - BILL Vizcaino - 10/15/2023 3:55 PM EDT 7000 Physician Certification As the individual's attending physician , I certify that the above-named patient: Is being discharged to a nursing facility directly from a hospital after receiving acute patient care at the hospital, and Requires nursing facility services for the condition for which he/she received care in the hospital, and Requires fewer than 30 days of nursing facility services, no later than the date of discharge. I certify that inpatient care is required at the level recommended above. To the best of my knowledge, all information provided about the individual is a true and accurate reflection of the individual's condition. [facility] Work Phone: [phone]) 527-155907-08-2024 History of Present illness Narrative* BILL Vizcaino - 10/15/2023 3:41 PM EDT Pt reviewed during Care Rounds today and she continues to be ready for discharge. Update in [facility] from [facility] that auth was not started over the weekend. SW met with pt to review her plan and the IM. Pt confirms her desires to discharge to [facility] and understands we are waiting on auth which was not started until today. Precert request sent to [facility] and is pending. Updatesattached in [facility]port for [facility]- they do not need a COVID. Care Transitions will continue to follow. ADDM: Update from [facility] that auth has been approved. Update in [facility] to [facility] and they can accept today. Final updates/orders attached in [facility]port and the hospital exemption was completed by [facility]/[employer]. Transportation arranged for 6pm. No further needs identified. BILL Vizcaino * Dorota Cavazos, [employer] - 10/14/2023 1:24 PM EDT Daryn Shah is a 77 y.o. female on day 4 of admission presenting with Hyponatremia. Subjective Patient states she did not sleep well last night and usually uses Benadryl at home. Denies complaints of dysuria. Verbalizes she is concerned with going to rehab secondary to PT concerns. Patient states she has limited mobility and is difficult for her to work with PT. Discussed with her if she would be agreeable to strengthen upper body strength and she is agreeable at this time Objective Last Recorded Vitals BP 123/85 (BP Location: Left arm, Patient Position: Lying) Pulse 92 Temp 36.3 C (97.3 F) (Temporal) Resp 16 Wt 113 kg (250 lb) SpO2 93% Intake/Output last 3 Shifts: Intake/Output Summary (Last 24 hours) at 10/14/2023 1324 Last data filed at 10/14/2023 1225 Gross per 24 hour Intake 980 ml Output 225 ml Net 755 ml Admission Weight Weight: 113 kg (250 lb) (10/10/23 0124) Daily Weight 10/10/23 : 113 kg (250 lb) Image Results ECG 12 lead Atrial fibrillation with rapid ventricular response with premature ventricular or aberrantly conducted complexes Left anterior fascicular block Possible Anterior infarct , age undetermined ST & T wave abnormality, consider lateral ischemia Abnormal ECG CT abdomen pelvis wo IV contrast Narrative: Interpreted By: Vlad Araya, STUDY: CT ABDOMEN PELVIS WO IV CONTRAST; 10/10/2023 2:45 am INDICATION: Signs/Symptoms:back pain w/o injury. COMPARISON: CT scan of the abdomen 01/05/2020 ACCESSION NUMBER(S): [id number] ORDERING CLINICIAN: FLAVIO MILES TECHNIQUE: Axial noncontrast CT images of the abdomen and pelvis with coronal and sagittal reconstructed images. FINDINGS: LOWER CHEST: Trace right pleural effusion. Bibasilar atelectasis and or scarring. 2 nodules in the right middle lobe measuring up to 10 mm are stable from CT scan of 2019. Mild elevation of the left hemidiaphragm. Coronary artery calcifications noted. ABDOMEN: Lack of intravenous contrast limits evaluation of vessels and solid organs. LIVER: Within normal limits. BILE DUCTS: Normal caliber. GALLBLADDER: Status post cholecystectomy. PANCREAS: [id number] fatty atrophy of the pancreas. SPLEEN: Splenomegaly measuring 13.3 cm in craniocaudal dimension. The superior margin is excluded from the field of view slightly limiting evaluation. ADRENALS: Nodular thickening of the left adrenal gland may relate to hyperplasia or adenomatous change. KIDNEYS, URETERS, URINARY BLADDER: Kidneys are symmetric in size. There are least 3 nonobstructing left renal calculi measuring 2-3 mm. No evidence for right renal or bilateral ureteral calculi. No hydronephrosis, hydroureter or perinephric inflammatory changes. No bladder calculi. Bladder is under distended with apparent wall thickening. VESSELS: Calcific atherosclerosis of the aortoiliac vessels. No aortic aneurysm. RETROPERITONEUM: No pathologically enlarged lymph nodes. PELVIS: REPRODUCTIVE ORGANS: Uterus is present with exophytic coarse calcifications likely relate to calcified subserosal fibroid no adnexal mass. BOWEL: Small hiatal hernia. Stomach is under distended. Visualized loops of bowel are without evidence for obstruction. Moderate stool burden. 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 A few scattered colonic diverticula without evidence for acute diverticulitis. Normal appendix. PERITONEUM: No ascites or free air, no fluid collection. ABDOMINAL WALL: Within normal limits. BONES: Multilevel degenerative changes of the spine. Bilateral hip osteoarthrosis. Interbody fusion at L4-5. Impression: Several nonobstructing left renal calculi measure 2-3 mm. Stable splenomegaly measuring 13.3 cm in craniocaudal dimension. Trace right pleural effusion. Bibasilar atelectasis and or scarring. 2 nodules in the right middle lobe measuring up to 10 mm are stable from CT scan of 2019. Additional findings as noted above. MACRO: None Signed by: Vlad Araya 10/10/2023 3:17 AM Dictation workstation: [id number] XR chest 1 view Narrative: Interpreted By: Vlad Araya, STUDY: XR CHEST 1 VIEW; 10/10/2023 2:03 am INDICATION: Signs/Symptoms:weakness. COMPARISON: Chest x-ray 09/08/2022 ACCESSION NUMBER(S): [id number] ORDERING CLINICIAN: FLAVIO MILES FINDINGS: Multiple overlying leads are present. CARDIOMEDIASTINAL SILHOUETTE: Cardiomediastinal silhouette is stable in size and configuration. LUNGS: No consolidation, pleural effusion or pneumothorax. ABDOMEN: No remarkable upper abdominal findings. BONES: Multilevel degenerative changes of the spine. Bilateral shoulder osteoarthrosis. Impression: No acute cardiopulmonary process. MACRO: None Signed by: Vlad Araya 10/10/2023 2:11 AM Dictation workstation: [id number] Physical Exam General Appearance: AAO x 3, not in acute distress Skin: skin color pink, warm, and dry; dressing to right lower leg dry and intact Eyes : PERRL, EOM's intact ENT: mucous membranes pink and moist Neck: normocephalic Respiratory: lungs clear to auscultation anteriorly; no wheezing, rhonchi, or crackles. Heart: regular rate and rhythm. Abdomen: Nondistended, positive bowel sounds x4, soft, nontender Extremities: no edema. Right leg greater than left leg Peripheral pulses: normal x4 extremities Neuro: alert, coherent and conversant, no focal motor deficits Relevant Results Results for orders placed or performed during the hospital encounter of 10/10/23 (from the past 24 hour(s)) POCT GLUCOSE Result Value Ref Range POCT Glucose 192 (H) 74 - 99 mg/dL POCT GLUCOSE Result Value Ref Range POCT Glucose 168 (H) 74 - 99 mg/dL CBC Result Value Ref Range WBC 14.2 (H) 4.4 - 11.3 x10*3/uL nRBC 0.0 0.0 - 0.0 /100 WBCs RBC 4.61 4.00 - 5.20 x10*6/uL Hemoglobin 12.3 12.0 - 16.0 g/dL Hematocrit 38.0 36.0 - 46.0 % MCV 82 80 - 100 fL MCH 26.7 26.0 - 34.0 pg MCHC 32.4 32.0 - 36.0 g/dL RDW 14.4 11.5 - 14.5 % Platelets 299 150 - 450 x10*3/uL Basic Metabolic Panel Result Value Ref Range Glucose 177 (H) 74 - 99 mg/dL Sodium 128 (L) 136 - 145 mmol/L Potassium 3.7 3.5 - 5.3 mmol/L Chloride 93 (L) 98 - 107 mmol/L Bicarbonate 27 21 - 32 mmol/L Anion Gap 12 10 - 20 mmol/L Urea Nitrogen 25 (H) 6 - 23 mg/dL Creatinine 0.66 0.50 - 1.05 mg/dL eGFR >90 >60 mL/min/1.73m*2 Calcium 8.7 8.6 - 10.3 mg/dL POCT GLUCOSE Result Value Ref Range POCT Glucose 179 (H) 74 - 99 mg/dL POCT GLUCOSE Result Value Ref Range POCT Glucose 154 (H) 74 - 99 mg/dL Scheduled medications atenolol, 100 mg, oral, Daily cephalexin, 500 mg, oral, q12h SEVEN cholecalciferol, 2,000 Units, oral, Daily diphenhydrAMINE, 25 mg, oral, Nightly ferrous gluconate, 38 mg of iron, oral, Daily with breakfast insulin lispro, 0-10 Units, subcutaneous, TID magnesium oxide, 200 mg, oral, Daily oxygen, , inhalation, Continuous - Inhalation phenazopyridine, 200 mg, oral, TID polyethylene glycol, 17 g, oral, Daily rivaroxaban, 20 mg, oral, Daily rosuvastatin, 10 mg, oral, Nightly sennosides-docusate sodium, 2 tablet, oral, BID venlafaxine XR, 75 mg, oral, Daily Continuous medications PRN medications PRN medications: acetaminophen, albuterol, baclofen, dextrose, dextrose, glucagon, glucagon, magnesium hydroxide, ondansetron Assessment/Plan Principal Problem: Hyponatremia This is a 77 years old female patient with past medical history as mentioned below presented to theemergency room because of not feeling well, weakness and back discomfort. The patient is bedridden and not ambulating several years and her son is the caregiver at home. She mentioned that her son issick and he was admitted to another hospital. She mentioned that over the last couple of days, she has been very weak, tired and not able to take care of herself. He thinks that she had urine tract infection and her symptoms are similar to before when she had UTI. She denies urinary symptoms such as dysuria, hematuria or change in the color of the urine. She denied abdominal pain, nausea or vomiting. She denied fever or chills. She denied cough, sputum production or shortness of breath. She is not on home oxygen. In the emergency department, she was afebrile, heart rate was around 110 bpm andthen improved down to around 80s. Blood pressure stable. Routine blood work is remarkable for sodium of 126, BUN is 31, creatinine is 1.09, WBC 17.2. Urinalysis revealed turbid urine, positive for nitrite, 500 leukocyte esterase and there was 21-50 WBCs as well as +[address] scan abdomen showed several nonobstructing left kidney stone, stable splenomegaly, stable right middle lobe nodules, no other acute findings. Chest x-ray showed no acute infiltrate or consolidation. Patient is being adm itted for urinary tract infection, hyponatremia, physical debility and functional decline as well as inability to care for herself. Plan: Hyponatremia -History of SIADH -Continue to hold Maxide -Dr. Mills following-recommends continue following fluid restriction. Has signed off -Continues to follow labs. Slight decrease in sodium noted 128 UTI/acute cystitis -Urine culture finalized showing Proteus Mirabella's -Completed treatment with ceftriaxone and Keflex -Continue Pyridium -White blood cells improving Weakness -PT/OT following -According to patient she is able to care for self at home. -Recommend rehab placement as son is currently hospitalized at another facility. Patient is reluctant to go to rehab. Patient is high risk for readmission and concerned that she may return into an unsafe home environment. Spent time in conversation with patient regarding rehab. She states that she has difficulty with PT secondary to I am unable to use the machines and do not like it if they pull and tug on me. Patient has an mobilityissues but is agreeable for rehab to reset her body strength A-fib -Continue atenolol and Xarelto Depression -Continue Effexor Hyperlipidemia -Continue rosuvastatin Diabetes -Continue sliding scale DVT prophylaxis: Continue Xarelto Discharge disposition: Patient medically ready for discharge to rehab. Awaiting acceptance and pre-CERT MACARENA Yang * MACARENA Yang - 10/13/2023 2:26 PM EDT Daryn Shah is a 77 y.o. female on day 3 of admission presenting with Hyponatremia. Subjective Patient resting in bed. Verbalizes decrease in pain. States she has had a decrease in appetite prior to admission. Spoke with patient about recommendation for her to go to rehab at discharge as she is resistant. States that her son will help her at home but he is currently an inpatient at [facility] with cystic fibrosis and a second son will arrive home from [place] sometime later today. Patient states she is able to take self on and off bedpan and get self from bed into electric wheelchair. Time spent in discussing concerns with patient returning home alone. Patient verbalizes she came to the emergency room for complaints of back pain and does not feel that this has been completely addressed. Questions answered and support provided Objective Last Recorded Vitals BP 116/68 (BP Location: Left arm, Patient Position: Lying) Pulse 81 Temp 36 C (96.8 F) (Temporal) Resp 16 Wt 113 kg (250 lb) SpO2 94% Intake/Output last 3 Shifts: Intake/Output Summary (Last 24 hours) at 10/13/2023 1426 Last data filed at 10/13/2023 0851 Gross per 24 hour Intake 480 ml Output 850 ml Net -370 ml Admission Weight Weight: 113 kg (250 lb) (10/10/23 0124) Daily Weight 10/10/23 : 113 kg (250 lb) Image Results ECG 12 lead Atrial fibrillation with rapid ventricular response with premature ventricular or aberrantly conducted complexes Left anterior fascicular block Possible Anterior infarct , age undetermined ST & T wave abnormality, consider lateral ischemia Abnormal ECG CT abdomen pelvis wo IV contrast Narrative: Interpreted By: Vlad Araya, STUDY: CT ABDOMEN PELVIS WO IV CONTRAST; 10/10/2023 2:45 am INDICATION: Signs/Symptoms:back pain w/o injury. COMPARISON: CT scan of the abdomen 01/05/2020 ACCESSION NUMBER(S): [id number] ORDERING CLINICIAN: FLAVIO MILES TECHNIQUE: Axial noncontrast CT images of the abdomen and pelvis with coronal and sagittal reconstructed images. FINDINGS: LOWER CHEST: Trace right pleural effusion. Bibasilar atelectasis and or scarring. 2 nodules in the right middle lobe measuring up to 10 mm are stable from CT scan of 2019. Mild elevation of the left hemidiaphragm. Coronary artery calcifications noted. ABDOMEN: Lack of intravenous contrast limits evaluation of vessels and solid organs. LIVER: Within normal limits. BILE DUCTS: Normal caliber. GALLBLADDER: Status post cholecystectomy. PANCREAS: [id number] fatty atrophy of the pancreas. SPLEEN: Splenomegaly measuring 13.3 cm in craniocaudal dimension. The superior margin is excluded from the field of view slightly limiting evaluation. ADRENALS: Nodular thickening of the left adrenal gland may relate to hyperplasia or adenomatous change. KIDNEYS, URETERS, URINARY BLADDER: Kidneys are symmetric in size. There are least 3 nonobstructing left renal calculi measuring 2-3 mm. No evidence for right renal or bilateral ureteral calculi. No hydronephrosis, hydroureter or perinephric inflammatory changes. No bladder calculi. Bladder is under distended with apparent wall thickening. VESSELS: Calcific atherosclerosis of the aortoiliac vessels. No aortic aneurysm. RETROPERITONEUM: No pathologically enlarged lymph nodes. PELVIS: REPRODUCTIVE ORGANS: Uterus is present with exophytic coarse calcifications likely relate to calcified subserosal fibroid no adnexal mass. BOWEL: Small hiatal hernia. Stomach is under distended. Visualized loops of bowel are without evidence for obstruction. Moderate stool burden. 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 A few scattered colonic diverticula without evidence for acute diverticulitis. Normal appendix. PERITONEUM: No ascites or free air, no fluid collection. ABDOMINAL WALL: Within normal limits. BONES: Multilevel degenerative changes of the spine. Bilateral hip osteoarthrosis. Interbody fusion at L4-5. Impression: Several nonobstructing left renal calculi measure 2-3 mm. Stable splenomegaly measuring 13.3 cm in craniocaudal dimension. Trace right pleural effusion. Bibasilar atelectasis and or scarring. 2 nodules in the right middle lobe measuring up to 10 mm are stable from CT scan of 2019. Additional findings as noted above. MACRO: None Signed by: Vlad Araya 10/10/2023 3:17 AM Dictation workstation: [id number] XR chest 1 view Narrative: Interpreted By: Vlad Araya, STUDY: XR CHEST 1 VIEW; 10/10/2023 2:03 am INDICATION: Signs/Symptoms:weakness. COMPARISON: Chest x-ray 09/08/2022 ACCESSION NUMBER(S): [id number] ORDERING CLINICIAN: FLAVIO MILES FINDINGS: Multiple overlying leads are present. CARDIOMEDIASTINAL SILHOUETTE: Cardiomediastinal silhouette is stable in size and configuration. LUNGS: No consolidation, pleural effusion or pneumothorax. ABDOMEN: No remarkable upper abdominal findings. BONES: Multilevel degenerative changes of the spine. Bilateral shoulder osteoarthrosis. Impression: No acute cardiopulmonary process. MACRO: None Signed by: Vlad Araya 10/10/2023 2:11 AM Dictation workstation: [id number] Physical Exam General Appearance: AAO x 3, not in acute distress Skin: skin color pink, warm, and dry; dressing to right lower leg dry and intact Eyes : PERRL, EOM's intact ENT: mucous membranes pink and moist Neck: normocephalic Respiratory: lungs clear to auscultation anteriorly; no wheezing, rhonchi, or crackles. Heart: regular rate and rhythm. Abdomen: Nondistended, positive bowel sounds x4, soft, nontender Extremities: no edema. Right leg greater than left leg Peripheral pulses: normal x4 extremities Neuro: alert, coherent and conversant, no focal motor deficits Relevant Results Results for orders placed or performed during the hospital encounter of 07/03/24 (from the past 24 hour(s)) POCT GLUCOSE Result Value Ref Range POCT Glucose 264 (H) 74 - 99 mg/dL POCT GLUCOSE Result Value Ref Range POCT Glucose 189 (H) 74 - 99 mg/dL CBC Result Value Ref Range WBC 18.1 (H) 4.4 - 11.3 x10*3/uL nRBC 0.0 0.0 - 0.0 /100 WBCs RBC 4.57 4.00 - 5.20 x10*6/uL Hemoglobin 12.1 12.0 - 16.0 g/dL Hematocrit 38.0 36.0 - 46.0 % MCV 83 80 - 100 fL MCH 26.5 26.0 - 34.0 pg MCHC 31.8 (L) 32.0 - 36.0 g/dL RDW 14.4 11.5 - 14.5 % Platelets 269 150 - 450 x10*3/uL Basic Metabolic Panel Result Value Ref Range Glucose 186 (H) 74 - 99 mg/dL Sodium 129 (L) 136 - 145 mmol/L Potassium 4.0 3.5 - 5.3 mmol/L Chloride 94 (L) 98 - 107 mmol/L Bicarbonate 26 21 - 32 mmol/L Anion Gap 13 10 - 20 mmol/L Urea Nitrogen 32 (H) 6 - 23 mg/dL Creatinine 0.75 0.50 - 1.05 mg/dL eGFR 83 >60 mL/min/1.73m*2 Calcium 8.7 8.6 - 10.3 mg/dL POCT GLUCOSE Result Value Ref Range POCT Glucose 167 (H) 74 - 99 mg/dL POCT GLUCOSE Result Value Ref Range POCT Glucose 157 (H) 74 - 99 mg/dL Scheduled medications atenolol, 100 mg, oral, Daily cephalexin, 500 mg, oral, q12h SEVEN cholecalciferol, 2,000 Units, oral, Daily ferrous gluconate, 38 mg of iron, oral, Daily with breakfast insulin lispro, 0-10 Units, subcutaneous, TID magnesium oxide, 200 mg, oral, Daily oxygen, , inhalation, Continuous - Inhalation phenazopyridine, 200 mg, oral, TID polyethylene glycol, 17 g, oral, Daily rivaroxaban, 20 mg, oral, Daily rosuvastatin, 10 mg, oral, Nightly sennosides-docusate sodium, 2 tablet, oral, BID venlafaxine XR, 75 mg, oral, Daily Continuous medications PRN medications PRN medications: acetaminophen, albuterol, baclofen, dextrose, dextrose, glucagon, glucagon, magnesium hydroxide, ondansetron Assessment/Plan Principal Problem: Hyponatremia This is a 77 years old female patient with past medical history as mentioned below presented to theemergency room because of not feeling well, weakness and back discomfort. The patient is bedridden and not ambulating several years and her son is the caregiver at home. She mentioned that her son issick and he was admitted to another hospital. She mentioned that over the last couple of days, she has been very weak, tired and not able to take care of herself. He thinks that she had urine tract infection and her symptoms are similar to before when she had UTI. She denies urinary symptoms such as dysuria, hematuria or change in the color of the urine. She denied abdominal pain, nausea or vomiting. She denied fever or chills. She denied cough, sputum production or shortness of breath. She is not on home oxygen. In the emergency department, she was afebrile, heart rate was around 110 bpm andthen improved down to around 80s. Blood pressure stable. Routine blood work is remarkable for sodium of 126, BUN is 31, creatinine is 1.09, WBC 17.2. Urinalysis revealed turbid urine, positive for nitrite, 500 leukocyte esterase and there was 21-50 WBCs as well as +[address] scan abdomen showed several nonobstructing left kidney stone, stable splenomegaly, stable right middle lobe nodules, no other acute findings. Chest x-ray showed no acute infiltrate or consolidation. Patient is being adm itted for urinary tract infection, hyponatremia, physical debility and functional decline as well as inability to care for herself. Plan: Hyponatremia -History of SIADH -Continue to hold Maxide -Dr. Mills following-recommends continue following fluid restriction. Has signed off -Continues to follow labs UTI/acute cystitis -Urine culture finalized showing Proteus Mirabella's -Patient has received Rocephin x 4 days. Changed to Keflex x 2 days -I improvement noted in WBCs -Continue Pyridium Weakness -PT/OT following -According to patient she is able to care for self at home. -Recommend rehab placement as son is currently hospitalized at another facility. Patient is reluctant to go to rehab. Patient is high risk for readmission and concerned that she may return into an unsafe home environment A-fib -Continue atenolol and Xarelto Depression -Continue Effexor Hyperlipidemia -Continue rosuvastatin Diabetes -Continue sliding scale DVT prophylaxis: Continue Xarelto Discharge disposition: Patient medically ready for discharge to rehab. Awaiting acceptance and pre-CERT MACARENA Yang * ANGELICA Reeves - 10/13/2023 11:20 AM EDT Pt reviewed in care rounds this morning. Pt medically ready for discharge. SW met w/ Pt at bedside.SW advised Pt that per responses in [place] neither [facility] or [facility] are able to accept Pt for placement. SW provided Pt with list for additional choices in the surrounding area and Pt Ok'd referrals to additional facilities. SW sent referrals to facilities in [place] per Pt's choice. Avoidable days entered. SW tofollow for acceptance, choice, and precert. Plan is for Pt to discharge to SNF. 1555 SW met w/ Pt at bedside. Advised Pt of accepting facilities and Pt [facility] Pt does not want to go to [facility] with a semi-private room. SW sent message to [facility] to indicate they are [facility]. Discharge plan is [facility] pending precert. SW to follow. * MACARENA Yang - 10/12/2023 5:39 PM EDT Daryn Shah is a 77 y.o. female on day 2 of admission presenting with Hyponatremia. Subjective Patient resting in bed and complains of mid and upper back pain. Describes pain as spasm-like and rates a 4 out of 10. Patient states she is able to maneuver herself from bed to her electric wheelchair and able to place herself on and off the bedpan. Objective Last Recorded Vitals BP 116/66 (BP Location: Right arm, Patient Position: Lying) Pulse 79 Temp 36 C (96.8 F) (Temporal) Resp 18 Wt 113 kg (250 lb) SpO2 91% Intake/Output last 3 Shifts: Intake/Output Summary (Last 24 hours) at 10/12/2023 1740 Last data filed at 10/12/2023 1302 Gross per 24 hour Intake 357 ml Output 200 ml Net 157 ml Admission Weight Weight: 113 kg (250 lb) (10/10/23 0124) Daily Weight 10/10/23 : 113 kg (250 lb) Image Results ECG 12 lead Atrial fibrillation with rapid ventricular response with premature ventricular or aberrantly conducted complexes Left anterior fascicular block Possible Anterior infarct , age undetermined ST & T wave abnormality, consider lateral ischemia Abnormal ECG CT abdomen pelvis wo IV contrast Narrative: Interpreted By: Vlad Araya, STUDY: CT ABDOMEN PELVIS WO IV CONTRAST; 10/10/2023 2:45 am INDICATION: Signs/Symptoms:back pain w/o injury. COMPARISON: CT scan of the abdomen 01/05/2020 ACCESSION NUMBER(S): [id number] ORDERING CLINICIAN: FLAVIO MILES TECHNIQUE: Axial noncontrast CT images of the abdomen and pelvis with coronal and sagittal reconstructed images. FINDINGS: LOWER CHEST: Trace right pleural effusion. Bibasilar atelectasis and or scarring. 2 nodules in the right middle lobe measuring up to 10 mm are stable from CT scan of 2019. Mild elevation of the left hemidiaphragm. Coronary artery calcifications noted. ABDOMEN: Lack of intravenous contrast limits evaluation of vessels and solid organs. LIVER: Within normal limits. BILE DUCTS: Normal caliber. GALLBLADDER: Status post cholecystectomy. PANCREAS: Ldqa-ik-qcxenmyi fatty atrophy of the pancreas. SPLEEN: Splenomegaly measuring 13.3 cm in craniocaudal dimension. The superior margin is excluded from the field of view slightly limiting evaluation. ADRENALS: Nodular thickening of the left adrenal gland may relate to hyperplasia or adenomatous change. KIDNEYS, URETERS, URINARY BLADDER: Kidneys are symmetric in size. There are least 3 nonobstructing left renal calculi measuring 2-3 mm. No evidence for right renal or bilateral ureteral calculi. No hydronephrosis, hydroureter or perinephric inflammatory changes. No bladder calculi. Bladder is under distended with apparent wall thickening. VESSELS: Calcific atherosclerosis of the aortoiliac vessels. No aortic aneurysm. RETROPERITONEUM: No pathologically enlarged lymph nodes. PELVIS: REPRODUCTIVE ORGANS: Uterus is present with exophytic coarse calcifications likely relate to calcified subserosal fibroid no adnexal mass. BOWEL: Small hiatal hernia. Stomach is under distended. Visualized loops of bowel are without evidence for obstruction. Moderate stool burden. 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 A few scattered colonic diverticula without evidence for acute diverticulitis. Normal appendix. PERITONEUM: No ascites or free air, no fluid collection. ABDOMINAL WALL: Within normal limits. BONES: Multilevel degenerative changes of the spine. Bilateral hip osteoarthrosis. Interbody fusion at L4-5. Impression: Several nonobstructing left renal calculi measure 2-3 mm. Stable splenomegaly measuring 13.3 cm in craniocaudal dimension. Trace right pleural effusion. Bibasilar atelectasis and or scarring. 2 nodules in the right middle lobe measuring up to 10 mm are stable from CT scan of 2019. Additional findings as noted above. MACRO: None Signed by: Vlad Araya 10/10/2023 3:17 AM Dictation workstation: [id number] XR chest 1 view Narrative: Interpreted By: Vlad Araya, STUDY: XR CHEST 1 VIEW; 10/10/2023 2:03 am INDICATION: Signs/Symptoms:weakness. COMPARISON: Chest x-ray 09/08/2022 ACCESSION NUMBER(S): [id number] ORDERING CLINICIAN: FLAVIO MILES FINDINGS: Multiple overlying leads are present. CARDIOMEDIASTINAL SILHOUETTE: Cardiomediastinal silhouette is stable in size and configuration. LUNGS: No consolidation, pleural effusion or pneumothorax. ABDOMEN: No remarkable upper abdominal findings. BONES: Multilevel degenerative changes of the spine. Bilateral shoulder osteoarthrosis. Impression: No acute cardiopulmonary process. MACRO: None Signed by: Vlad Araya 10/10/2023 2:11 AM Dictation workstation: [id number] Physical Exam General Appearance: AAO x 3, not in acute distress Skin: skin color pink, warm, and dry; no suspicious rashes or lesions Eyes : PERRL, EOM's intact ENT: mucous membranes pink and moist Neck: normocephalic Respiratory: lungs clear to auscultation anteriorly; no wheezing, rhonchi, or crackles. Heart: regular rate and rhythm. telemetry shows sinus rhythm Abdomen: Nondistended, positive bowel sounds x4, soft, nontender Extremities: no edema Peripheral pulses: normal x4 extremities Neuro: alert, coherent and conversant, no focal motor deficits Relevant Results Results for orders placed or performed during the hospital encounter of 10/10/23 (from the past 24 hour(s)) POCT GLUCOSE Result Value Ref Range POCT Glucose 212 (H) 74 - 99 mg/dL Basic Metabolic Panel Result Value Ref Range Glucose 191 (H) 74 - 99 mg/dL Sodium 130 (L) 136 - 145 mmol/L Potassium 3.3 (L) 3.5 - 5.3 mmol/L Chloride 93 (L) 98 - 107 mmol/L Bicarbonate 28 21 - 32 mmol/L Anion Gap 12 10 - 20 mmol/L Urea Nitrogen 38 (H) 6 - 23 mg/dL Creatinine 0.87 0.50 - 1.05 mg/dL eGFR 70 >60 mL/min/1.73m*2 Calcium 9.1 8.6 - 10.3 mg/dL CBC Result Value Ref Range WBC 23.0 (H) 4.4 - 11.3 x10*3/uL nRBC 0.0 0.0 - 0.0 /100 WBCs RBC 4.86 4.00 - 5.20 x10*6/uL Hemoglobin 13.0 12.0 - 16.0 g/dL Hematocrit 40.3 36.0 - 46.0 % MCV 83 80 - 100 fL MCH 26.7 26.0 - 34.0 pg MCHC 32.3 32.0 - 36.0 g/dL RDW 14.2 11.5 - 14.5 % Platelets 300 150 - 450 x10*3/uL POCT GLUCOSE Result Value Ref Range POCT Glucose 179 (H) 74 - 99 mg/dL POCT GLUCOSE Result Value Ref Range POCT Glucose 167 (H) 74 - 99 mg/dL POCT GLUCOSE Result Value Ref Range POCT Glucose 264 (H) 74 - 99 mg/dL Scheduled medications atenolol, 100 mg, oral, Daily cefTRIAXone, 1 g, intravenous, q24h cholecalciferol, 2,000 Units, oral, Daily ferrous gluconate, 38 mg of iron, oral, Daily with breakfast insulin lispro, 0-10 Units, subcutaneous, TID magnesium oxide, 200 mg, oral, Daily oxygen, , inhalation, Continuous - Inhalation phenazopyridine, 200 mg, oral, TID polyethylene glycol, 17 g, oral, Daily rivaroxaban, 20 mg, oral, Daily rosuvastatin, 10 mg, oral, Nightly sennosides-docusate sodium, 2 tablet, oral, BID venlafaxine XR, 75 mg, oral, Daily Continuous medications PRN medications PRN medications: acetaminophen, albuterol, baclofen, dextrose, dextrose, glucagon, glucagon, magnesium hydroxide, ondansetron Assessment/Plan Principal Problem: Hyponatremia This is a 77 years old female patient with past medical history as mentioned below [facility] not [facility] well, weakness and back discomfort. The patient is bedridden and not ambulating several years and her son is the caregiver at home. She mentioned that her son issick and he was admitted to another hospital. She mentioned that over the last couple of days, she has been very weak, tired and not able to take care of herself. He thinks that she had urine tract infection and her symptoms are similar to before when she had UTI. She denies urinary symptoms such as dysuria, hematuria or change in the color of the urine. She denied abdominal pain, nausea or vomiting. She denied fever or chills. She denied cough, sputum production or shortness of breath. She is not on home oxygen. In the emergency department, she was afebrile, heart rate was around 110 bpm andthen improved down to around 80s. Blood pressure stable. Routine blood work is remarkable for sodium of 126, BUN is 31, creatinine is 1.09, WBC 17.2. Urinalysis revealed turbid urine, positive for nitrite, 500 leukocyte esterase and there was 21-50 WBCs as well as +[address] scan abdomen showed several nonobstructing left kidney stone, stable splenomegaly, stable right middle lobe nodules, no other acute findings. Chest x-ray showed no acute infiltrate or consolidation. Patient is being adm itted for urinary tract infection, hyponatremia, physical debility and functional decline as well as inability to care for herself. Plan: Hyponatremia -History of SIADH -Continue to hold Maxide -Dr. Mills following-recommends continue following fluid restriction -Continues to improve UTI/acute cystitis -Urine culture finalized showing Proteus Mirabella's -Patient has received Rocephin x 3 days. If remains asymptomatic can complete therapy -Increase in WBCs noted. Patient asymptomatic at this time. Will continue to follow and repeat labsin a.m. -Continue Pyridium Weakness -PT/OT following -According to patient she is able to care for self at home. Recommend rehab placement as son is currently hospitalized at another facility Per kalemia -Patient received 40 mill equivalents of potassium replacement for K of 3.3 A-fib -DC telemetry -Continue atenolol and Xarelto Depression -Continue Effexor Hyperlipidemia -Continue rosuvastatin Diabetes -Continue sliding scale DVT prophylaxis: Continue Xarelto Discharge disposition: Patient will be medically ready to discharge to SNF 24 hours pending accepting facility MACARENA Yang * James Mendez, PT - 10/12/2023 1:34 PM EDT Physical Therapy Physical Therapy Treatment Patient Name: Daryn Shah Today's Date: 10/12/2023 Time Calculation Start Time: 1112 Stop Time: 1154 Time Calculation (min): 42 min 306/306-A Assessment/Plan Patient very tearful and upset and missing her sons. Patient states she doesn't want to get out of bed as she doesn't want her back to hurt. PT educating her on the importance of getting into uprightposition for her lungs and to keep using her muscles to transfer so she doesn't get more weak. Paitent did agree to transfer to recliner with therapists assist. Patient agreeable to sitting in chair. PT Assessment PT Assessment Results: Decreased strength, Decreased endurance, Impaired balance, Decreased mobility, Decreased safety awareness, Obesity, Pain Rehab Prognosis: Good Evaluation/Treatment Tolerance: Patient limited by pain End of Session Communication: Bedside nurse, Manager Metal End of Session Patient Position: Bed, 3 rail up, Alarm on PT Plan Inpatient/Swing Bed or Outpatient: Inpatient PT Plan Treatment/Interventions: Bed mobility, Transfer training, Neuromuscular re- education, Balance training, Strengthening, Endurance training, Therapeutic exercise, Therapeutic activity, Home exercise program PT Plan: Ongoing PT PT Frequency: 5 times per week PT Discharge Recommendations: Moderate intensity level of continued care PT Recommended Transfer Status: Assist x2 Current Problem: Patient Active Problem List Diagnosis Anxiety Atrial fibrillation (Multi) Benign essential hypertension Depression, major, single episode, moderate (Multi) 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, without long-term current use of insulin (Multi) Hyperlipidemia Lumbar facet arthropathy Lymphedema of leg Neurodermatitis Personal history of colonic polyps Primary osteoarthritis of both knees Renal lesion Venous stasis ulcer with varicose veins of lower extremity (Multi) Vitamin D deficiency Morbid obesity with BMI of 40.0-44.9, adult (Multi) Generalized muscle weakness Iron deficiency anemia Age-related incipient cataract of both eyes 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) Hyponatremia General Visit Information: PT Visit PT Received On: 10/12/23 General Reason for Referral: impaired mobility; 77 year old female admitted for UTI, kidney stone, hyponatremia. 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 pt tearful throughout Subjective Precautions: Precautions Medical Precautions: Fall precautions Vital Signs: Objective Pain: Pain Assessment Pain Assessment: 0-10 0-10 (Numeric) Pain Score: (no number given) Pain Type: Acute pain Pain Location: Back Pain Orientation: Lower Cognition: Cognition Overall Cognitive Status: Within Functional Limits Orientation Level: Oriented X4 Insight: Moderate Postural Control: Postural Control Postural Control: Impaired Activity Tolerance: Activity Tolerance Endurance: Decreased tolerance for upright activites Treatments: Therapeutic Exercise Therapeutic Exercise Performed: Yes Therapeutic Exercise Activity 1: ankle pumps Therapeutic Exercise Activity 2: heel and toe raises x15 ea seated Therapeutic Exercise Activity 3: LAQ x15 ea leg Therapeutic Exercise Activity 4: seated marches x15 ea leg (targets to lift to) Therapeutic Exercise Activity 5: adductor squeeze with towel roll x15 Therapeutic Exercise Activity 6: manual resisted hip abd x15 with max cues Bed Mobility Bed Mobility: Yes Bed Mobility 1 Bed Mobility 1: Supine to sitting Level of Assistance 1: Close supervision, Contact guard Bed Mobility Comments 1: with use of trapeze and bed rail Transfers Transfer: Yes Transfer 1 Transfer From 1: Bed to Transfer to 1: Chair with arms Technique 1: Lateral, Squat pivot (To LEFT (same as home)) Transfer Device 1: Gait belt Transfer Level of Assistance 1: Maximum assistance, +2, Moderate verbal cues (modA) Trials/Comments 1: pt is used to performing lateral scoot pivot transfer to her power chair which is difficult to replicate in hospital setting. pt needs extra time Outcome Measures: [facility] Basic Mobility Turning from your back to your side while in a flat bed without using bedrails: A lot Moving from lying on your back to sitting on the side of a flat bed without using bedrails: A lot Moving to and from bed to chair (including a wheelchair): A lot Standing up from a chair using your arms (e.g. wheelchair or bedside chair): Total To walk in hospital room: Total Climbing 3-5 steps with railing: Total Basic Mobility - Total Score: 9 Education Documentation Safety with transfers hand placement EDUCATION: Encounter Problems Encounter Problems (Active) PT Problem PT Goal 1 (Progressing) Start: 10/10/23 Expected End: 10/23/23 Daryn Shah will be mod independent with bed mobility for supine to and from sitting EOB with use of rail/trapeze PT Goal 2 (Progressing) Start: 10/10/23 Expected End: 10/23/23 Daryn Shah will transfer squat pivot to/from chair with CGa PT Goal 3 (Progressing) Start: 10/10/23 Expected End: 10/23/23 Patient will participate in 30 min PT session wtihout increase in pain Pain - Adult * Yennifer Gilbert OT - 10/12/2023 11:57 AM EDT Occupational Therapy OT Treatment Patient Name: Daryn Shah Today's Date: 10/12/2023 Time Calculation Start Time: 1110 Stop Time: 1137 Time Calculation (min): 27 min Assessment: OT Assessment: pt making progress towards all goals yet still needing significant assist for ADLs. continue with current OT POC Plan: OT Frequency: 5 times per week OT Discharge Recommendations: Moderate intensity level of continued care Subjective Previous Visit Info: OT Last Visit OT Received On: 10/12/23 General: General Reason for Referral: impaired mobility; 77 year old female admitted for UTI, kidney stone, hyponatremia. patient weak Referred By: Renetta Romero MD Family/Caregiver Present: No Co-Treatment: PT Co-Treatment Reason: to maximize pt safety Prior to Session Communication: Bedside nurse Patient Position Received: Bed, 3 rail up, Alarm on General Comment: pt initially not wanting to participate due to back pain yet pt agreeable sp education and minimal encouragement. pt tearful throughout Precautions: Medical Precautions: Fall precautions Pain: Pain Assessment Pain Assessment: 0-10 (pt c/o not wanting to have back pain/spasms. does not rate back pain throughout) Objective Cognition: Cognition Orientation Level: Oriented X4 Bed Mobility/Transfers: Bed Mobility Bed Mobility: Yes Bed Mobility 1 Bed Mobility 1: Supine to sitting Level of Assistance 1: Close supervision Bed Mobility Comments 1: with use of trapeze and bed rail. Transfers Transfer: Yes Transfer 1 Transfer From 1: Bed to Transfer to 1: Chair with arms Technique 1: Lateral, Squat pivot Transfer Device 1: Gait belt Transfer Level of Assistance 1: Maximum assistance (max A of 1 and mod A of another from high to low) Trials/Comments 1: pt is used to performing lateral scoot pivot transfer to her power chair which is difficult to replicate in hospital setting. pt needs extra time. Sitting Balance: Static Sitting Balance Static Sitting-Balance Support: No upper extremity supported Static Sitting-Level of Assistance: Close supervision Outcome Measures:[facility] Daily Activity Putting on and taking off regular lower body clothing: Total Bathing (including washing, rinsing, drying): A lot Putting on and taking off regular upper body clothing: A lot Toileting, which includes using toilet, bedpan or urinal: Total Taking care of personal grooming such as brushing teeth: A little Eating Meals: None Daily Activity - Total Score: 13 Education Documentation Body Mechanics, taught by Yennifer Gilbert OT at 10/12/2023 11:57 AM. Learner: Patient Readiness: Eager Method: Demonstration, Explanation Response: Needs Reinforcement ADL Training, taught by Yennifer Gilbert OT at 10/12/2023 11:57 AM. Learner: Patient Readiness: Eager Method: Demonstration, Explanation Response: Needs Reinforcement Education Comments No comments found. OP EDUCATION: Goals: Encounter Problems Encounter Problems (Active) ADLs Patient will perform UB and LB bathing with minimal assist level of assistance. (Progressing) Start: 10/10/23 Expected End: 10/24/23 Patient with complete lower body dressing with minimal assist level of assistance donning all LE clothes (Progressing) Start: 10/10/23 Expected End: 10/24/23 BALANCE Pt will maintain dynamic sitting balance during ADL task with modified independent level of assistance in order to demonstrate decreased risk of falling and improved postural control. (Progressing) Start: 10/10/23 Expected End: 10/24/23 TRANSFERS Patient will complete functional transfers withsupervision level of assistance. (Progressing) Start: 10/10/23 Expected End: 10/24/23 * ANGELICA Crouch - 10/12/2023 11:05 AM EDT Per medical team, patient is not yet medically appropriate for discharge today; will likely requireanother 24 hours in the hospital pending urine cultures and as patient's WBC count is monitored. [facility] [place] [place]. Per medical team, patient has been resisting idea of SNF. PT/OT have yet to see patient today. [facility] attempted to meet with patient at bedside to review discharge plan. Patient very engaged with phone conversation. SW waited for a few moments and then offered to return later. Patient agreed. - 1115: Patient now working with PT/OT. SW to return. - 1530: Per PT/OT, patient's current [facility] scores are 9/13; More appropriate for care in a facilityrather than returning home. SW to meet with patient to discuss same. If patient is agreeable to SNF, SW/DSC will need to send additional [facility] [place] Plan for patient TBD: SNF if patient will agree to same, pending acceptance, insurance auth, vs. Return home with family support and possible Home Care. Care Transitions to follow and assist. ANGELICA Deras * Ru Mills, DO - 10/12/2023 10:10 AM EDT Daryn Shah is a 77 y.o. female on day 2 of admission presenting with Hyponatremia. Subjective Patient seen and examined at the bedside this morning She is resting comfortably in bed No acute events or issues noted No major Objective Vitals 24HR Heart Rate: [75-103] Temp: [36 C (96.8 F)-36.9 C (98.4 F)] Resp: [18] BP: (118-134)/(71-85) SpO2: [92 %-94 %] Intake/Output last 3 Shifts: Intake/Output Summary (Last 24 hours) at 10/12/2023 1010 Last data filed at 10/12/2023 0519 Gross per 24 hour Intake 2232.5 ml Output 450 ml Net 1782.5 ml Physical Exam Constitutional: Appearance: Normal appearance. She is obese. HENT: Head: Normocephalic and atraumatic. Right Ear: External ear normal. Left Ear: External ear normal. Nose: Nose normal. Mouth/Throat: Mouth: Mucous membranes are moist. Pharynx: Oropharynx is clear. Eyes: Extraocular Movements: Extraocular movements intact. Conjunctiva/sclera: Conjunctivae normal. Pupils: Pupils are equal, round, and reactive to light. Cardiovascular: Rate and Rhythm: Normal rate and regular rhythm. Pulmonary: Effort: Pulmonary effort is normal. Breath sounds: Normal breath sounds. Abdominal: General: Abdomen is flat. Palpations: Abdomen is soft. Skin: General: Skin is warm and dry. Neurological: General: No focal deficit present. Mental Status: She is alert and oriented to person, place, and time. Psychiatric: Mood and Affect: Mood normal. Behavior: Behavior normal. Scheduled medications atenolol, 100 mg, oral, Daily cefTRIAXone, 1 g, intravenous, q24h cholecalciferol, 2,000 Units, oral, Daily ferrous gluconate, 38 mg of iron, oral, Daily with breakfast insulin lispro, 0-10 Units, subcutaneous, TID magnesium oxide, 200 mg, oral, Daily oxygen, , inhalation, Continuous - Inhalation phenazopyridine, 200 mg, oral, TID polyethylene glycol, 17 g, oral, Daily rivaroxaban, 20 mg, oral, Daily rosuvastatin, 10 mg, oral, Nightly sennosides-docusate sodium, 2 tablet, oral, BID venlafaxine XR, 75 mg, oral, Daily Continuous medications PRN medications PRN medications: acetaminophen, albuterol, baclofen, dextrose, dextrose, glucagon, glucagon, magnesium hydroxide, ondansetron Relevant Results Assessment/Plan Principal Problem: Hyponatremia Hyponatremia with known underlying SIADH Peripheral edema with volume overload and chronic lymphedema: Clinically looks quite stable and euvolemic at this time Obesity Weakness with inability to walk Urinary tract infection with greater than 100,000 gram-negative bacilli Iron deficiency anemia with anemia of chronic disease present Diabetes mellitus type 2 Hypertension Plan: At this time her sodium level is rising towards normal with supportive measures again She is on Rocephin and we are continuing to follow for her urine culture for culture and sensitivity I would continue fluid restriction and her supportive measures as she is on No further interventions from the renal standpoint for her sodium as it continues to rise towards positive Please call with any further issues or needs Ru Mills DO * Cleo Nj RN - 10/11/2023 11:14 AM EDT 10/11/23 1114 Discharge Planning Patient expects to be discharged to: Home with [facility] vs SNF Spoke to [facility]EW[facility]. Pt has 2 sons. The son that is the main caregiver is hospitalized at main campus. Other son is in [place] for a wedding. Pt is functioning at her baseline mobility ferreira but does not have anyone at home to assist her. Prior to being hospitalized pt was peeing in a bucket and waiting for neighbor to come and dump same. Met with pt at bedside, role of TCC explained. Pt still not sure that she wants SNF. [facility] cannot accept (no beds). PT has been to [facility] and wont go back. P used to workat [employer] and does not want to go there. Pt requests referral be made to [facility]. Unsure when son in hospital will be released. Anticipates son in [place] will return home Sunday/Sunday depending on flughts. I have not told him that I am sick. I don't want to ruin or cut short his vacation. Plan- TBD home with or without [facility] vs SNF pending acceptance and precert. CT will follow. * Love Gibbs, [employer]OCIATE - 10/11/2023 10:15 AM EDT Daryn Shah is a 77 y.o. female on day 1 of admission presenting with Hyponatremia. Subjective Pt seen and examined pt voices no complaints at this time Pt states that she slept well with no issues, she denies any urinary frequency or burning Preliminary urine culture back at gram neg bacilli Objective Last Recorded Vitals BP 106/71 Pulse 80 Temp 36.1 C (97 F) Resp 18 Wt 113 kg (250 lb) SpO2 93% Intake/Output last 3 Shifts: Intake/Output Summary (Last 24 hours) at 10/11/2023 1015 Last data filed at 10/10/2023 2300 Gross per 24 hour Intake 882.5 ml Output 675 ml Net 207.5 ml Admission Weight Weight: 113 kg (250 lb) (10/10/23 0124) Daily Weight 10/10/23 : 113 kg (250 lb) Image Results ECG 12 lead Atrial fibrillation with rapid ventricular response with premature ventricular or aberrantly conducted complexes Left anterior fascicular block Possible Anterior infarct , age undetermined ST & T wave abnormality, consider lateral ischemia Abnormal ECG CT abdomen pelvis wo IV contrast Narrative: Interpreted By: Vlad Araya, STUDY: CT ABDOMEN PELVIS WO IV CONTRAST; 10/10/2023 2:45 am INDICATION: Signs/Symptoms:back pain w/o injury. COMPARISON: CT scan of the abdomen 01/05/2020 ACCESSION NUMBER(S): [id number] ORDERING CLINICIAN: FLAVIO MILES TECHNIQUE: Axial noncontrast CT images of the abdomen and pelvis with coronal and sagittal reconstructed images. FINDINGS: LOWER CHEST: Trace right pleural effusion. Bibasilar atelectasis and or scarring. 2 nodules in the right middle lobe measuring up to 10 mm are stable from CT scan of 2019. Mild elevation of the left hemidiaphragm. Coronary artery calcifications noted. ABDOMEN: Lack of intravenous contrast limits evaluation of vessels and solid organs. LIVER: Within normal limits. BILE DUCTS: Normal caliber. GALLBLADDER: Status post cholecystectomy. PANCREAS: [id number] fatty atrophy of the pancreas. SPLEEN: Splenomegaly measuring 13.3 cm in craniocaudal dimension. The superior margin is excluded from the field of view slightly limiting evaluation. ADRENALS: Nodular thickening of the left adrenal gland may relate to hyperplasia or adenomatous change. KIDNEYS, URETERS, URINARY BLADDER: Kidneys are symmetric in size. There are least 3 nonobstructing left renal calculi measuring 2-3 mm. No evidence for right renal or bilateral ureteral calculi. No hydronephrosis, hydroureter or perinephric inflammatory changes. No bladder calculi. Bladder is under distended with apparent wall thickening. VESSELS: Calcific atherosclerosis of the aortoiliac vessels. No aortic aneurysm. RETROPERITONEUM: No pathologically enlarged lymph nodes. PELVIS: REPRODUCTIVE ORGANS: Uterus is present with exophytic coarse calcifications likely relate to calcified subserosal fibroid no adnexal mass. BOWEL: Small hiatal hernia. Stomach is under distended. Visualized loops of bowel are without evidence for obstruction. Moderate stool burden. 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 A few scattered colonic diverticula without evidence for acute diverticulitis. Normal appendix. PERITONEUM: No ascites or free air, no fluid collection. ABDOMINAL WALL: Within normal limits. BONES: Multilevel degenerative changes of the spine. Bilateral hip osteoarthrosis. Interbody fusion at L4-5. Impression: Several nonobstructing left renal calculi measure 2-3 mm. Stable splenomegaly measuring 13.3 cm in craniocaudal dimension. Trace right pleural effusion. Bibasilar atelectasis and or scarring. 2 nodules in the right middle lobe measuring up to 10 mm are stable from CT scan of 2019. Additional findings as noted above. MACRO: None Signed by: Vlad Araya 10/10/2023 3:17 AM Dictation workstation: [id number] XR chest 1 view Narrative: Interpreted By: Vlad Araya, STUDY: XR CHEST 1 VIEW; 10/10/2023 2:03 am INDICATION: Signs/Symptoms:weakness. COMPARISON: Chest x-ray 09/08/2022 ACCESSION NUMBER(S): [id number] ORDERING CLINICIAN: FLAVIO MILES FINDINGS: Multiple overlying leads are present. CARDIOMEDIASTINAL SILHOUETTE: Cardiomediastinal silhouette is stable in size and configuration. LUNGS: No consolidation, pleural effusion or pneumothorax. ABDOMEN: No remarkable upper abdominal findings. BONES: Multilevel degenerative changes of the spine. Bilateral shoulder osteoarthrosis. Impression: No acute cardiopulmonary process. MACRO: None Signed by: Vlad Araya 10/10/2023 2:11 AM Dictation workstation: [id number] Physical Exam General Appearance: AAO x 3, not in acute distress Skin: skin color pink, warm, and dry; no suspicious rashes or lesions Eyes : PERRL, EOM's intact ENT: mucous membranes pink and moist Neck: normocephalic Respiratory: lungs clear to auscultation anteriorly; no wheezing, rhonchi, or crackles. Heart: irregular rate and rhythm. telemetry shows Sinus rhythm Abdomen: positive bowel sounds x4, soft, nontender, obese Extremities: no edema noted nemo lower ext, Peripheral pulses: normal x4 extremities Neuro: alert, coherent and conversant, no focal motor deficits. Relevant Results Scheduled medications atenolol, 100 mg, oral, Daily cefTRIAXone, 1 g, intravenous, q24h cholecalciferol, 2,000 Units, oral, Daily ferrous gluconate, 38 mg of iron, oral, Daily with breakfast insulin lispro, 0-10 Units, subcutaneous, TID lisinopril, 5 mg, oral, Daily magnesium oxide, 200 mg, oral, Daily oxygen, , inhalation, Continuous - Inhalation phenazopyridine, 200 mg, oral, TID polyethylene glycol, 17 g, oral, Daily rivaroxaban, 20 mg, oral, Daily rosuvastatin, 10 mg, oral, Nightly sennosides-docusate sodium, 2 tablet, oral, BID venlafaxine XR, 75 mg, oral, Daily Continuous medications sodium chloride 0.9%, 75 mL/hr, Last Rate: 75 mL/hr (10/11/23 0443) PRN medications PRN medications: acetaminophen, albuterol, baclofen, dextrose, dextrose, glucagon, glucagon, magnesium hydroxide, ondansetron Results for orders placed or performed during the hospital encounter of 10/10/23 (from the past 24 hour(s)) CBC Result Value Ref Range WBC 26.0 (H) 4.4 - 11.3 x10*3/uL nRBC 0.0 0.0 - 0.0 /100 WBCs RBC 4.39 4.00 - 5.20 x10*6/uL Hemoglobin 11.8 (L) 12.0 - 16.0 g/dL Hematocrit 36.1 36.0 - 46.0 % MCV 82 80 - 100 fL MCH 26.9 26.0 - 34.0 pg MCHC 32.7 32.0 - 36.0 g/dL RDW 13.9 11.5 - 14.5 % Platelets 210 150 - 450 x10*3/uL Basic metabolic panel Result Value Ref Range Glucose 180 (H) 74 - 99 mg/dL Sodium 125 (L) 136 - 145 mmol/L Potassium 3.8 3.5 - 5.3 mmol/L Chloride 88 (L) 98 - 107 mmol/L Bicarbonate 27 21 - 32 mmol/L Anion Gap 14 10 - 20 mmol/L Urea Nitrogen 33 (H) 6 - 23 mg/dL Creatinine 1.13 (H) 0.50 - 1.05 mg/dL eGFR 51 (L) >60 mL/min/1.73m*2 Calcium 8.5 (L) 8.6 - 10.3 mg/dL POCT GLUCOSE Result Value Ref Range POCT Glucose 187 (H) 74 - 99 mg/dL POCT GLUCOSE Result Value Ref Range POCT Glucose 209 (H) 74 - 99 mg/dL POCT GLUCOSE Result Value Ref Range POCT Glucose 178 (H) 74 - 99 mg/dL CBC Result Value Ref Range WBC 20.1 (H) 4.4 - 11.3 x10*3/uL nRBC 0.0 0.0 - 0.0 /100 WBCs RBC 4.49 4.00 - 5.20 x10*6/uL Hemoglobin 12.3 12.0 - 16.0 g/dL Hematocrit 37.3 36.0 - 46.0 % MCV 83 80 - 100 fL MCH 27.4 26.0 - 34.0 pg MCHC 33.0 32.0 - 36.0 g/dL RDW 14.2 11.5 - 14.5 % Platelets 218 150 - 450 x10*3/uL Basic metabolic panel Result Value Ref Range Glucose 192 (H) 74 - 99 mg/dL Sodium 126 (L) 136 - 145 mmol/L Potassium 4.0 3.5 - 5.3 mmol/L Chloride 92 (L) 98 - 107 mmol/L Bicarbonate 21 21 - 32 mmol/L Anion Gap 17 10 - 20 mmol/L Urea Nitrogen 35 (H) 6 - 23 mg/dL Creatinine 0.90 0.50 - 1.05 mg/dL eGFR 67 >60 mL/min/1.73m*2 Calcium 8.6 8.6 - 10.3 mg/dL POCT GLUCOSE Result Value Ref Range POCT Glucose 182 (H) 74 - 99 mg/dL Assessment/Plan Principal Problem: Hyponatremia This is a 77 years old female patient with past medical history as mentioned below presented to theemergency room because of not feeling well, weakness and back discomfort. The patient is bedridden and not ambulating several years and her son is the caregiver at home. She mentioned that her son issick and he was admitted to another hospital. She mentioned that over the last couple of days, she has been very weak, tired and not able to take care of herself. He thinks that she had urine tract infection and her symptoms are similar to before when she had UTI. She denies urinary symptoms such as dysuria, hematuria or change in the color of the urine. She denied abdominal pain, nausea or vomiting. She denied fever or chills. She denied cough, sputum production or shortness of breath. She is not on home oxygen. In the emergency department, she was afebrile, heart rate was around 110 bpm andthen improved down to around 80s. Blood pressure stable. Routine blood work is remarkable for sodium of 126, BUN is 31, creatinine is 1.09, WBC 17.2. Urinalysis revealed turbid urine, positive for nitrite, 500 leukocyte esterase and there was 21-50 WBCs as well as +[address] scan abdomen showed several nonobstructing left kidney stone, stable splenomegaly, stable right middle lobe nodules, no other acute findings. Chest x-ray showed no acute infiltrate or consolidation. Patient is being adm itted for urinary tract infection, hyponatremia, physical debility and functional decline as well as inability to care for herself. #1 hyponatremia: - history of SIADH -Maxide on hold at this time -possible dehydrated, hypovolemic. continue IV fluids with normal saline -Dr. Mills consulted -NA slowly improving #2 UTI/acute cystitis: -Urinalysis 1+ bacteria, + leukest, + nitrites -continue IV Rocephin -preliminary gram neg bacilli #3 Weakness -functional decline/not able to care for herself: Patient lives at home, her son is the caregiver, he is sick and admitted to another facility. -PT OT, patient will need placement long-term facility. #4 chronic atrial fibrillation - Initial heart rate was around 110, improved after IV fluids - Plan to continue atenolol for rate control -continue Xarelto for anticoagulation. #5 hypertension - Blood pressure stable, continue lisinopril. #6 anxiety and depression -Continue Effexor. #7 type 2 diabetes mellitus: - ADA diet, -Accu-Cheks - insulin scale -patient is on dulaglutide injections per week. #8 DVT prophylaxis: -Continue Xarelto. Discharge Disposition: awaiting placement at SNF Love Gibbs APRN-PALOMA * Cleo Nj RN - 10/10/2023 1:21 PM EDT 10/10/23 1314 Discharge Planning Living Arrangements Children Support Systems Children Assistance Needed ind bathing, dressing. Shares in cooking, cleaning with son srinivas, Meals in wheels. Son drives to appointmetns. Type of Residence Private residence Number of Stairs to Enter Residence 0 (ramp entrance) Number of Stairs Within Residence 0 Do you have animals or pets at home? Yes Type of Animals or Pets 2 dogs, 2 cats Who is requesting discharge planning? Provider Home or Post Acute Services In home services Type of Post Acute Facility Services [facility] Type of Home Care Services Home OT;Home PT;Home nursing visits Patient expects to be discharged to: Home with [facility] [place] [facility] vs SNF Does the patient need discharge transport arranged? Yes RoundTrip coordination needed? Yes Has discharge transport been arranged? No Financial Resource Strain How hard is it for you to pay for the very basics like food, housing, medical care, and heating? Not hard Housing Stability In the last 12 months, was there a time when you were not able to pay the mortgage or rent on time?N In the last 12 months, how many places have you lived? 1 In the last 12 months, was there a time when you did not have a steady place to sleep or slept in ashelter (including now)? N Transportation Needs In the past 12 months, has lack of transportation kept you from medical appointments or from getting medications? no In the past 12 months, has lack of transportation kept you from meetings, work, or from getting things needed for daily living? No Patient Choice Provider Choice list and [facility] website (https://medicare.gov/care-compare#search) for post-acute Quality and Resource Measure Data were provided and reviewed with: Patient REMOTE COVERAGE- Attempt to reach pt several times, reached out to nurse for assistance in same. Ptreturned TCC call from room phone, role of TCC explained. Demographics confirmed. PAP- with last visit 08/27 and next visit in December (per pt) Pharmacy [facility]- takes meds as prescribed, able to afford and obtain. Non insulin dependent DM II checking sugar a couple times a week. Pt lives with son, is either wheelchair or bedbound, has not walked in several years. Has and uses power chair, wheelchair, trapeze bar. Per care rounds pt tearful on talk of SNF dueto bad experience at [facility]. Discussed same with pt who states, Not [facility]. I would maybe go to a [facility] one but would have to talk to my son. Per freedom of choice would like referral to [facility] only. Ptstill undecided about SNF and may or may not do [facility]. Discussed [facility], if pt agrees states would probably stick with . Pt to discuss plan with son. Will ask [facility] to build and send referral to [facility]. CTwill follow. 1330- Called, left for son to involve in discharge planning. CT will follow. * James Mendez, PT - 10/10/2023 11:32 AM EDT Physical Therapy Physical Therapy Evaluation Patient Name: Daryn Shah Today's Date: 10/10/2023 Time Calculation Start Time: 944 Stop Time: 1004 Time Calculation (min): 19 min Assessment/Plan Skilled PT intervention is indicated due to patient presents with deficits in bed mobility, transfers, strength, activity tolerance, and safety awareness. Patient globally weak and deconditioned. Recommend extended physical therapy intervention to improve strength, balance, mobility and reduce fallrisk. Patient uses power wheelchair for mobility and pivots to/from it at baseline. PT Assessment PT Assessment Results: Decreased strength, Decreased endurance, Impaired balance, Decreased mobility, Decreased safety awareness, Obesity, Pain Rehab Prognosis: Good Evaluation/Treatment Tolerance: Patient limited by pain End of Session Communication: Bedside nurse, Manager Metal End of Session Patient Position: Bed, 3 rail up, Alarm on IP OR SWING BED PT PLAN Inpatient or Swing Bed: Inpatient PT Plan Treatment/Interventions: Bed mobility, Transfer training, Neuromuscular re- education, Balance training, Strengthening, Endurance training, Therapeutic exercise, Therapeutic activity, Home exercise program PT Plan: Ongoing PT PT Frequency: 5 times per week PT Discharge Recommendations: Moderate intensity level of continued care PT Recommended Transfer Status: Assist x2 (PT spoke with charge nurse and requested trapeze bar be put in patients room for her to use on L side of bed (patient gets OOB on Right side baseline)) Subjective Current Problem: Patient Active Problem List Diagnosis Anxiety Atrial fibrillation (Multi) Benign essential hypertension Depression, major, single episode, moderate (Multi) 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, without long-term current use of insulin (Multi) Hyperlipidemia Lumbar facet arthropathy Lymphedema of leg Neurodermatitis Personal history of colonic polyps Primary osteoarthritis of both knees Renal lesion Venous stasis ulcer with varicose veins of lower extremity (Multi) Vitamin D deficiency Morbid obesity with BMI of 40.0-44.9, adult (Multi) Generalized muscle weakness Iron deficiency anemia Age-related incipient cataract of both eyes 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) Hyponatremia General Visit Information: General Reason for Referral: impaired mobility; 77 year old female admitted for UTI, kidney stone, hyponatremia. 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 her son brings her the water) Bathroom Toilet: Other (Comment) (uses a bed cain for toileting at home. she typically will empty itbut her son washes it outside) Home Living Comments: pt has a hospital bed and trapeze Prior Level of Function: Prior Function Per Pt/Caregiver Report Level of [place]: Independent with ADLs and functional transfers Receives Help From: Family Ambulatory Assistance: (does not ambulate at baseline, uses power w/c) Prior Function Comments: pt has been nonambulatory for 7 years. pt uses a powerchair for mobility but is able to perform squat pivot transfers to/from w/c independently. pt performs her own bathing and dressing yet supine bed level (keeps her clothes in a tote next to her bed). pt uses a bedpan fortoileting and ususally will empty it in a bag but her son washes it outside. Precautions: Precautions Medical Precautions: Fall precautions Vital Signs: no concerns Objective Pain: Pain Assessment Pain Assessment: 0-10 0-10 (Numeric) Pain Score: 5 - Moderate pain Pain Type: Acute pain Pain Location: Back Pain Orientation: Lower Cognition: Cognition Overall Cognitive Status: Within Functional Limits Insight: Moderate General Assessments: Activity Tolerance Endurance: Decreased tolerance for upright activites Strength Strength Comments: LEs grossly >/=2/5 Postural Control Postural Control: Impaired Static Sitting Balance Static Sitting-Balance Support: (unable to get into full upright sitting position EOB) Functional Assessments: Bed Mobility Bed Mobility: Yes Bed Mobility 1 Bed Mobility 1: Supine to sitting, Sitting to supine Level of Assistance 1: Close supervision Bed Mobility Comments 1: patient using rail to pull herself up (baseline) and states she typically has trapeze bar also to assist/ patient partically sitting EOB and stopped due to back pain and spasms. sat in that position for a couple of minutes then states she needs to return to bed/supine Transfers Transfer: (unable to attempt transfer due to back pain/spasms; states she will try again tomorrow) Outcome Measures: [facility] Basic Mobility Turning from your back to your side while in a flat bed without using bedrails: A lot Moving from lying on your back to sitting on the side of a flat bed without using bedrails: A lot Moving to and from bed to chair (including a wheelchair): A lot Standing up from a chair using your arms (e.g. wheelchair or bedside chair): Total To walk in hospital room: Total Climbing 3-5 steps with railing: Total Basic Mobility - Total Score: 9 Goals: Encounter Problems Encounter Problems (Active) PT Problem PT Goal 1 Start: 10/10/23 Expected End: 10/23/23 Daryn Shah will be mod independent with bed mobility for supine to and from sitting EOB with use of rail/trapeze PT Goal 2 Start: 10/10/23 Expected End: 10/23/23 Daryn Shah will transfer squat pivot to/from chair with CGa PT Goal 3 Start: 10/10/23 Expected End: 10/23/23 Patient will participate in 30 min PT session wtihout increase in pain Pain - Adult Education Documentation Safety with mobility; * Yennifer Gilbert OT - 10/10/2023 11:17 AM EDT Occupational Therapy Evaluation Patient Name: Daryn Shah Today's Date: 10/10/2023 Time Calculation Start Time: 943 Stop Time: 1003 Time Calculation (min): 20 min 306/306-A Assessment IP OT Assessment OT Assessment: pt having back spasms and feeling weak which impedes her ability to perform ADLs at PLOF. pt now needing assist for most ADLS. recommend skilled OT services in order to ensure return to PLOF. Prognosis: Fair End of Session Communication: Bedside nurse, Manager Metal End of Session Patient Position: Bed, 3 rail up, Alarm on Plan: OT Frequency: 5 times per week OT Discharge Recommendations: Moderate intensity level of continued care Subjective Current Problem: 1. Hyponatremia General: General Reason for Referral: 77 year old female admitted for UTI, kidney stone, hyponatremia. 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 Family/Caregiver Present: No Co-Treatment: PT Co-Treatment Reason: to maximize safety Prior to Session Communication: Bedside nurse Patient Position Received: Bed, 3 rail up, Alarm on General Comment: pt agreeable to assessment yet c/o recent back spasms that she thinks started about a week ago when she was reaching for somehting in her powerchair and heard a rip Precautions: Medical Precautions: Fall precautions Pain: Pain Assessment Pain Assessment: 0-10 0-10 (Numeric) Pain Score: 5 - Moderate pain Pain Type: Acute pain Pain Location: Back Pain Orientation: Lower Objective Cognition: Overall Cognitive Status: Within Functional Limits Insight: Moderate Home Living: Type of Home: House Lives With: Adult children (son (who is hospitalized currently)) Home Layout: One level Home Access: Ramped entrance Bathroom Shower/Tub: (pt performs a bed bath at home. her son brings her the water) Bathroom Toilet: Other (Comment) (pt uses a bed cain for toileting at home. she typically will emptyit but her son washes it outside) Home Living Comments: pt has a hospital bed and trapeze Prior Function: Level of [place]: Independent with ADLs and functional transfers Receives Help From: Family Homemaking Assistance: (pt's son does laundry) Prior Function Comments: pt has been nonambulatory for 7 years. pt uses a powerchair for mobility but is able to perform scoot pivot transfers independently. pt performs her own bathing and dressing yet supine bed level (keeps her clothes in a tote next to her bed). pt uses a bedpan for toileting an d ususally will empty it in a bag but her son washes it outside. ADL: Eating Assistance: Stand by Grooming Assistance: Stand by Bathing Assistance: Moderate UE Dressing Assistance: Stand by LE Dressing Assistance: Moderate Toileting Assistance with Device: Maximal Bed Mobility/Transfers: Bed Mobility Bed Mobility: Yes Bed Mobility 1 Bed Mobility 1: Supine to sitting, Sitting to supine Level of Assistance 1: Close supervision Bed Mobility Comments 1: pt unable to get fully to EOB due to limited by back pain and c/o spasms Transfers Transfer: No (pt unable due to back pain) Sitting Balance: Static Sitting Balance Static Sitting-Comment/Number of Minutes: pt unable to sit upright due to back pain Vision: Vision - Basic Assessment Current Vision: No visual deficits Strength: Strength Comments: BUE 4-/5 Outcome Measures: [facility] Daily Activity Putting on and taking off regular lower body clothing: A lot Bathing (including washing, rinsing, drying): A lot Putting on and taking off regular upper body clothing: A little Toileting, which includes using toilet, bedpan or urinal: A lot Taking care of personal grooming such as brushing teeth: A little Eating Meals: A little Daily Activity - Total Score: 15 EDUCATION: Education Documentation Body Mechanics, taught by Yennifer Gilbert OT at 10/10/2023 11:17 AM. Learner: Patient Readiness: Eager Method: Explanation, Demonstration Response: Demonstrated Understanding, Needs Reinforcement ADL Training, taught by Yennifer Gilbert OT at 10/10/2023 11:17 AM. Learner: Patient Readiness: Eager Method: Explanation, Demonstration Response: Demonstrated Understanding, Needs Reinforcement Education Comments No comments found. Goals: Encounter Problems Encounter Problems (Active) ADLs Patient will perform UB and LB bathing with minimal assist level of assistance. (Progressing) Start: 10/10/23 Expected End: 10/24/23 Patient with complete lower body dressing with minimal assist level of assistance donning all LE clothes (Progressing) Start: 10/10/23 Expected End: 10/24/23 BALANCE Pt will maintain dynamic sitting balance during ADL task with modified independent level of assistance in order to demonstrate decreased risk of falling and improved postural control. (Progressing) Start: 10/10/23 Expected End: 10/24/23 TRANSFERS Patient will complete functional transfers withsupervision level of assistance. (Progressing) Start: 10/10/23 Expected End: 10/24/23 documented in this [facility] Work Phone: [phone]) 983-895007-08-2024 Hospital course Narrative* Gunjan Mohr, [employer] CHAIN ASSOCIATE - 10/15/2023 9:08 AM EDT Discharge Diagnosis Hyponatremia Issues Requiring Follow-Up Atrial fibrillation Depression/anxiety Controlled type 2 diabetes Edema of legs Neurolyse muscle weakness SIADH Discharge Meds Your medication list CHANGE how you take these medications Instructions Last Dose Given Next Dose Due rosuvastatin 10 mg tablet Commonly known as: Crestor What changed: when to take this Take 1 tablet (10 mg) by mouth once daily at bedtime. CONTINUE taking these medications Instructions Last Dose Given Next Dose Due ADULT MULTIVITAMIN GUMMIES ORAL atenolol 100 mg tablet Commonly known as: Tenormin Take 0.5 tablets (50 mg) by mouth 2 times a day. cholecalciferol 25 MCG (1000 UT) tablet Commonly known as: Vitamin D-3 Take 2 tablets (2,000 Units) by mouth once daily. cinnamon 500 mg capsule dulaglutide 3 mg/0.5 mL pen injector Inject 3 mg under the skin 1 (one) time per week. ferrous gluconate 324 (38 Fe) mg tablet Commonly known as: Fergon Take 1 tablet (38 mg of iron) by mouth once daily with breakfast. lisinopril 5 mg tablet Take 1 tablet (5 mg) by mouth once daily. magnesium oxide 200 mg magnesium tablet Commonly known as: Mag-Ox potassium chloride ER 10 mEq ER capsule Commonly known as: Micro-K Take 1 capsule (10 mEq) by mouth once daily. triamterene-hydrochlorothiazid 37.5-25 mg tablet Commonly known as: Maxzide-25 Take 1 tablet by mouth once daily. venlafaxine XR 75 mg 24 hr capsule Commonly known as: Effexor-XR Take 1 capsule (75 mg) by mouth once daily. ASK your doctor about these medications Instructions Last Dose Given Next Dose Due rivaroxaban 20 mg tablet Commonly known as: Xarelto Take 1 tablet (20 mg) by mouth once daily. Where to Get Your Medications Information about where to get these medications is not yet available Ask your nurse or doctor about these medications atenolol 100 mg tablet ferrous gluconate 324 (38 Fe) mg tablet rosuvastatin 10 mg tablet Test Results Pending At Discharge Pending Labs Order Current Status Extra Urine Draper Tube Collected (10/10/23 0328) Urinalysis with Reflex Culture and Microscopic In process Hospital Course This is a 77 years old female patient with past medical history as mentioned below presented to theemergency room because of not feeling well, weakness and back discomfort. The patient is bedridden and not ambulating several years and her son is the caregiver at home. She mentioned that her son issick and he was admitted to another hospital. She mentioned that over the last couple of days, she has been very weak, tired and not able to take care of herself. He thinks that she had urine tract infection and her symptoms are similar to before when she had UTI. She denies urinary symptoms such as dysuria, hematuria or change in the color of the urine. She denied abdominal pain, nausea or vomiting. She denied fever or chills. She denied cough, sputum production or shortness of breath. She is not on home oxygen. In the emergency department, she was afebrile, heart rate was around 110 bpm andthen improved down to around 80s. Blood pressure stable. Routine blood work is remarkable for sodium of 126, BUN is 31, creatinine is 1.09, WBC 17.2. Urinalysis revealed turbid urine, positive for nitrite, 500 leukocyte esterase and there was 21-50 WBCs as well as +[address] scan abdomen showed several nonobstructing left kidney stone, stable splenomegaly, stable right middle lobe nodules, no other acute findings. Chest x-ray showed no acute infiltrate or consolidation. Patient was admitted for urinary tract infection, hyponatremia, physical debility and functional decline as well as inability to care for herself. The patient's urine culture finalized as Proteus Mirabella's. Patient completed treatment with ceftriaxone and Keflex. She is using Pyridium as needed. She is afebrile and her white blood cell count has improved. Patient originally was very hesitant to go to rehab. However, Patient is high risk for readmission and concerned that she may return into an unsafe home environment. Spent time in conversation with patient regarding rehab. She states that she has difficulty with PT secondary to I am unable to use the machines and do not like it if they pull and tug on me. Patient has significant mobility issues. She is agreeable for rehab to reset her body strength. She will be discharged to SNF today in stable condition. Pertinent Physical Exam At Time of Discharge Physical Exam General Appearance: AAO x 3, not in acute distress Skin: skin color pink, warm, and dry; dressing to right lower leg dry and intact Eyes : PERRL, EOM's intact ENT: mucous membranes pink and moist Neck: normocephalic Respiratory: lungs clear to auscultation anteriorly; no wheezing, rhonchi, or crackles. Heart: regular rate and rhythm. Abdomen: Nondistended, positive bowel sounds x4, soft, nontender Extremities: no edema. Right leg greater than left leg Peripheral pulses: normal x4 extremities Neuro: alert, coherent and conversant, no focal motor deficits Outpatient Follow-Up Future Appointments Date Time Provider Department Center 12/18/2023 1:00 PM Huan Mcdaniel MD [id number] [facility] 07/18/2024 1:00 PM MACARENA Natarajan, DNP [id number] [facility] MACARENA Etienne documented in this [facility] Work Phone: 1(708) 287-489407-07-2024 Plan of care note* Care Plan - Ethel Iverson RN - 10/14/2023 10:12 AM EDT Problem: Nutrition Goal: Oral intake greater 75% Outcome: Progressing Goal: Consume prescribed supplement Outcome: Progressing Goal: Adequate PO fluid intake Outcome: Progressing Goal: BG 80-180 mg/dL Outcome: Progressing Goal: Lab values WNL Outcome: Progressing Goal: Electrolytes WNL Outcome: Progressing Goal: Promote healing Outcome: Progressing Goal: Reduce weight from edema/fluid Outcome: Progressing Problem: Skin Goal: Decreased wound size/increased tissue granulation at next dressing change Outcome: Progressing Flowsheets (Taken 10/14/2023 101) Decreased wound size/increased tissue granulation at next dressing change: Promote sleep for wound healing Goal: Participates in plan/prevention/treatment measures Outcome: Progressing Flowsheets (Taken 10/14/20231010) Participates in plan/prevention/treatment measures: Increase activity/out of bed for meals Goal: Prevent/minimize sheer/friction injuries Outcome: Progressing Flowsheets (Taken 10/14/20231010) Prevent/minimize sheer/friction injuries: Use pull sheet Goal: Promote/optimize nutrition Outcome: Progressing Flowsheets (Taken 10/14/20231010) Promote/optimize nutrition: Consume > 50% meals/supplements Goal: Prevent/manage excess moisture Outcome: Progressing Flowsheets (Taken 10/14/20231010) Prevent/manage excess moisture: Moisturize dry skin Goal: Promote skin healing Outcome: Progressing Flowsheets (Taken 10/14/20231010) Promote skin healing: Turn/reposition every 2 hours/use positioning/transfer devices Problem: Discharge Planning Goal: Discharge to home or other facility with appropriate resources Outcome: Progressing Problem: Chronic Conditions and Co-morbidities Goal: Patient's chronic conditions and co-morbidity symptoms are monitored and maintained or improved Outcome: Progressing Problem: Diabetes Goal: Achieve decreasing blood glucose levels by end of shift Outcome: Progressing Goal: Increase stability of blood glucose readings by end of shift Outcome: Progressing Goal: Decrease in ketones present in urine by end of shift Outcome: Progressing Goal: Maintain electrolyte levels within acceptable range throughout shift Outcome: Progressing Goal: Maintain glucose levels >70mg/dl to <250mg/dl throughout shift Outcome: Progressing Goal: No changes in neurological exam by end of shift Outcome: Progressing Goal: Learn about and adhere to nutrition recommendations by end of shift Outcome: Progressing Goal: Vital signs within normal range for age by end of shift Outcome: Progressing Goal: Increase self care and/or family involovement by end of shift Outcome: Progressing Goal: Receive DSME education by end of shift Outcome: Progressing Problem: Pain Goal: Takes deep breaths with improved pain control throughout the shift Outcome: Progressing Goal: Turns in bed with improved pain control throughout the shift Outcome: Progressing Goal: Walks with improved pain control throughout the shift Outcome: Progressing Goal: Performs ADL's with improved pain control throughout shift Outcome: Progressing Goal: Participates in PT with improved pain control throughout the shift Outcome: Progressing Goal: Free from opioid side effects throughout the shift Outcome: Progressing Goal: Free from acute confusion related to pain meds throughout the shift Outcome: Progressing Problem: Fall/Injury Goal: Verbalize understanding of personal risk factors for fall in the hospital Outcome: Progressing Goal: Verbalize understanding of risk factor reduction measures to prevent injury from fall in the home Outcome: Progressing Goal: Use assistive devices by end of the shift Outcome: Progressing Goal: Pace activities to prevent fatigue by end of the shift Outcome: Progressing The patient's goals for the shift include use the call light The clinical goals for the shift include pain control Over the shift, the patient did not make progress toward the following goals. Barriers to progression include . Recommendations to address these barriers include . [facility]07-06-2024 Plan of care note* Care Plan - Ethel Iverson RN - 10/13/2023 8:14 AM EDT Problem: Nutrition Goal: Oral intake greater 75% Outcome: Progressing Goal: Consume prescribed supplement Outcome: Progressing Goal: Adequate PO fluid intake Outcome: Progressing Goal: BG 80-180 mg/dL Outcome: Progressing Goal: Lab values WNL Outcome: Progressing Goal: Electrolytes WNL Outcome: Progressing Goal: Promote healing Outcome: Progressing Goal: Reduce weight from edema/fluid Outcome: Progressing Problem: Skin Goal: Decreased wound size/increased tissue granulation at next dressing change Outcome: Progressing Flowsheets (Taken 10/13/2023812) Decreased wound size/increased tissue granulation at next dressing change: Promote sleep for wound healing Goal: Participates in plan/prevention/treatment measures Outcome: Progressing Flowsheets (Taken 10/13/2023812) Participates in plan/prevention/treatment measures: Increase activity/out of bed for meals Goal: Prevent/minimize sheer/friction injuries Outcome: Progressing Flowsheets (Taken 10/13/2023812) Prevent/minimize sheer/friction injuries: Use pull sheet Goal: Promote/optimize nutrition Outcome: Progressing Flowsheets (Taken 10/13/2023812) Promote/optimize nutrition: Consume > 50% meals/supplements Goal: Prevent/manage excess moisture Outcome: Progressing Flowsheets (Taken 10/13/2023812) Prevent/manage excess moisture: Moisturize dry skin Goal: Promote skin healing Outcome: Progressing Flowsheets (Taken 10/13/2023 7739) Promote skin healing: Turn/reposition every 2 hours/use positioning/transfer devices Problem: Discharge Planning Goal: Discharge to home or other facility with appropriate resources Outcome: Progressing Problem: Chronic Conditions and Co-morbidities Goal: Patient's chronic conditions and co-morbidity symptoms are monitored and maintained or improved Outcome: Progressing Problem: Diabetes Goal: Achieve decreasing blood glucose levels by end of shift Outcome: Progressing Goal: Increase stability of blood glucose readings by end of shift Outcome: Progressing Goal: Decrease in ketones present in urine by end of shift Outcome: Progressing Goal: Maintain electrolyte levels within acceptable range throughout shift Outcome: Progressing Goal: Maintain glucose levels >70mg/dl to <250mg/dl throughout shift Outcome: Progressing Goal: No changes in neurological exam by end of shift Outcome: Progressing Goal: Learn about and adhere to nutrition recommendations by end of shift Outcome: Progressing Goal: Vital signs within normal range for age by end of shift Outcome: Progressing Goal: Increase self care and/or family involovement by end of shift Outcome: Progressing Goal: Receive DSME education by end of shift Outcome: Progressing Problem: Pain Goal: Takes deep breaths with improved pain control throughout the shift Outcome: Progressing Goal: Turns in bed with improved pain control throughout the shift Outcome: Progressing Goal: Walks with improved pain control throughout the shift Outcome: Progressing Goal: Performs ADL's with improved pain control throughout shift Outcome: Progressing Goal: Participates in PT with improved pain control throughout the shift Outcome: Progressing Goal: Free from opioid side effects throughout the shift Outcome: Progressing Goal: Free from acute confusion related to pain meds throughout the shift Outcome: Progressing Problem: Fall/Injury Goal: Verbalize understanding of personal risk factors for fall in the hospital Outcome: Progressing Goal: Verbalize understanding of risk factor reduction measures to prevent injury from fall in the home Outcome: Progressing Goal: Use assistive devices by end of the shift Outcome: Progressing Goal: Pace activities to prevent fatigue by end of the shift Outcome: Progressing The patient's goals for the shift include The clinical goals for the shift include monitor pain Over the shift, the patient did not make progress toward the following goals. Barriers to progression include . Recommendations to address these barriers include . [facility] Work Phone: [phone] 380-715307-05-2024 Plan of care note* Care Plan - Deonna Barry RN - 10/12/2023 10:06 PM EDT Problem: Nutrition Goal: Oral intake greater 75% Outcome: Progressing Goal: Consume prescribed supplement Outcome: Progressing Goal: Adequate PO fluid intake Outcome: Progressing Goal: BG 80-180 mg/dL Outcome: Progressing Goal: Lab values WNL Outcome: Progressing Goal: Electrolytes WNL Outcome: Progressing Goal: Promote healing Outcome: Progressing Goal: Reduce weight from edema/fluid Outcome: Progressing Problem: Skin Goal: Decreased wound size/increased tissue granulation at next dressing change Outcome: Progressing Goal: Participates in plan/prevention/treatment measures Outcome: Progressing Goal: Prevent/minimize sheer/friction injuries Outcome: Progressing Flowsheets (Taken 10/12/20232205) Prevent/minimize sheer/friction injuries: Use pull sheet Goal: Promote/optimize nutrition Outcome: Progressing Goal: Prevent/manage excess moisture Outcome: Progressing Goal: Promote skin healing Outcome: Progressing Problem: Discharge Planning Goal: Discharge to home or other facility with appropriate resources Outcome: Progressing Problem: Chronic Conditions and Co-morbidities Goal: Patient's chronic conditions and co-morbidity symptoms are monitored and maintained or improved Outcome: Progressing Problem: Diabetes Goal: Achieve decreasing blood glucose levels by end of shift Outcome: Progressing Goal: Increase stability of blood glucose readings by end of shift Outcome: Progressing Goal: Decrease in ketones present in urine by end of shift Outcome: Progressing Goal: Maintain electrolyte levels within acceptable range throughout shift Outcome: Progressing Goal: Maintain glucose levels >70mg/dl to <250mg/dl throughout shift Outcome: Progressing Goal: No changes in neurological exam by end of shift Outcome: Progressing Goal: Learn about and adhere to nutrition recommendations by end of shift Outcome: Progressing Goal: Vital signs within normal range for age by end of shift Outcome: Progressing Goal: Increase self care and/or family involovement by end of shift Outcome: Progressing Goal: Receive DSME education by end of shift Outcome: Progressing Problem: Pain Goal: Takes deep breaths with improved pain control throughout the shift Outcome: Progressing Goal: Turns in bed with improved pain control throughout the shift Outcome: Progressing Goal: Walks with improved pain control throughout the shift Outcome: Progressing Goal: Performs ADL's with improved pain control throughout shift Outcome: Progressing Goal: Participates in PT with improved pain control throughout the shift Outcome: Progressing Goal: Free from opioid side effects throughout the shift Outcome: Progressing Goal: Free from acute confusion related to pain meds throughout the shift Outcome: Progressing Problem: Fall/Injury Goal: Verbalize understanding of personal risk factors for fall in the hospital Outcome: Progressing Goal: Verbalize understanding of risk factor reduction measures to prevent injury from fall in the home Outcome: Progressing Goal: Use assistive devices by end of the shift Outcome: Progressing Goal: Pace activities to prevent fatigue by end of the shift Outcome: Progressing The patient's goals for the shift include The clinical goals for the shift include Pain less than 3/10 through this shift [facility]07-05-2024 Nurse Note* Yennifer Gregg RN - 10/12/2023 6:34 PM EDT 10/11/23 am to 10/12/23 pm 963 ml intake only. Pt is declining meals. [facility] Work Phone: [phone] 460-599607-05-2024 Plan of care note* Care Plan - Yennifer Gregg RN - 10/12/2023 10:17 AM EDT The patient's goals for the shift include The clinical goals for the shift include remain comfortable through this shift Problem: Nutrition Goal: Oral intake greater 75% Outcome: Progressing Goal: Consume prescribed supplement Outcome: Progressing Goal: Adequate PO fluid intake Outcome: Progressing Goal: BG 80-180 mg/dL Outcome: Progressing Goal: Lab values WNL Outcome: Progressing Goal: Electrolytes WNL Outcome: Progressing Goal: Promote healing Outcome: Progressing Goal: Reduce weight from edema/fluid Outcome: Progressing Problem: Skin Goal: Decreased wound size/increased tissue granulation at next dressing change Outcome: Progressing Goal: Participates in plan/prevention/treatment measures Outcome: Progressing Goal: Prevent/minimize sheer/friction injuries Outcome: Progressing Goal: Promote/optimize nutrition Outcome: Progressing Goal: Prevent/manage excess moisture Outcome: Progressing Goal: Promote skin healing Outcome: Progressing Problem: Discharge Planning Goal: Discharge to home or other facility with appropriate resources Outcome: Progressing Problem: Chronic Conditions and Co-morbidities Goal: Patient's chronic conditions and co-morbidity symptoms are monitored and maintained or improved Outcome: Progressing Problem: Diabetes Goal: Achieve decreasing blood glucose levels by end of shift Outcome: Progressing Goal: Increase stability of blood glucose readings by end of shift Outcome: Progressing Goal: Decrease in ketones present in urine by end of shift Outcome: Progressing Goal: Maintain electrolyte levels within acceptable range throughout shift Outcome: Progressing Goal: Maintain glucose levels >70mg/dl to <250mg/dl throughout shift Outcome: Progressing Goal: No changes in neurological exam by end of shift Outcome: Progressing Goal: Learn about and adhere to nutrition recommendations by end of shift Outcome: Progressing Goal: Vital signs within normal range for age by end of shift Outcome: Progressing Goal: Increase self care and/or family involovement by end of shift Outcome: Progressing Goal: Receive DSME education by end of shift Outcome: Progressing Problem: Pain Goal: Takes deep breaths with improved pain control throughout the shift Outcome: Progressing Goal: Turns in bed with improved pain control throughout the shift Outcome: Progressing Goal: Walks with improved pain control throughout the shift Outcome: Progressing Goal: Performs ADL's with improved pain control throughout shift Outcome: Progressing Goal: Participates in PT with improved pain control throughout the shift Outcome: Progressing Goal: Free from opioid side effects throughout the shift Outcome: Progressing Goal: Free from acute confusion related to pain meds throughout the shift Outcome: Progressing Problem: Fall/Injury Goal: Verbalize understanding of personal risk factors for fall in the hospital Outcome: Progressing Goal: Verbalize understanding of risk factor reduction measures to prevent injury from fall in the home Outcome: Progressing Goal: Use assistive devices by end of the shift Outcome: Progressing Goal: Pace activities to prevent fatigue by end of the shift Outcome: Progressing [facility] Work Phone: [phone]) 351-755307-04-2024 Plan of care note* Care Plan - Yennifer Gregg RN - 10/11/2023 3:10 PM EDT The patient's goals for the shift include The clinical goals for the shift include remain comortable Problem: Discharge Planning Goal: Discharge to home or other facility with appropriate resources Outcome: Progressing Problem: Nutrition Goal: Oral intake greater 75% Outcome: Progressing Goal: Consume prescribed supplement Outcome: Progressing Goal: Adequate PO fluid intake Outcome: Progressing Goal: BG 80-180 mg/dL Outcome: Progressing Goal: Lab values WNL Outcome: Progressing Goal: Electrolytes WNL Outcome: Progressing Goal: Promote healing Outcome: Progressing Goal: Reduce weight from edema/fluid Outcome: Progressing Problem: Diabetes Goal: Achieve decreasing blood glucose levels by end of shift Outcome: Progressing Goal: Increase stability of blood glucose readings by end of shift Outcome: Progressing Goal: Decrease in ketones present in urine by end of shift Outcome: Progressing Goal: Maintain electrolyte levels within acceptable range throughout shift Outcome: Progressing Goal: Maintain glucose levels >70mg/dl to <250mg/dl throughout shift Outcome: Progressing Goal: No changes in neurological exam by end of shift Outcome: Progressing Goal: Learn about and adhere to nutrition recommendations by end of shift Outcome: Progressing Goal: Vital signs within normal range for age by end of shift Outcome: Progressing Goal: Increase self care and/or family involovement by end of shift Outcome: Progressing Goal: Receive DSME education by end of shift Outcome: Progressing Problem: Pain Goal: Takes deep breaths with improved pain control throughout the shift Outcome: Progressing Goal: Turns in bed with improved pain control throughout the shift Outcome: Progressing Goal: Walks with improved pain control throughout the shift Outcome: Progressing Goal: Performs ADL's with improved pain control throughout shift Outcome: Progressing Goal: Participates in PT with improved pain control throughout the shift Outcome: Progressing Goal: Free from opioid side effects throughout the shift Outcome: Progressing Goal: Free from acute confusion related to pain meds throughout the shift Outcome: Progressing Problem: Fall/Injury Goal: Verbalize understanding of personal risk factors for fall in the hospital Outcome: Progressing Goal: Verbalize understanding of risk factor reduction measures to prevent injury from fall in the home Outcome: Progressing Goal: Use assistive devices by end of the shift Outcome: Progressing Goal: Pace activities to prevent fatigue by end of the shift Outcome: Progressing Problem: Skin Goal: Decreased wound size/increased tissue granulation at next dressing change Outcome: Progressing Goal: Participates in plan/prevention/treatment measures Outcome: Progressing Goal: Prevent/minimize sheer/friction injuries Outcome: Progressing Goal: Promote/optimize nutrition Outcome: Progressing [facility] Work Phone: [phone]) 381-288007-04-2024 Plan of care note* Care Plan - Yennifer Gregg RN - 10/11/2023 3:08 PM EDT The patient's goals for the shift include The clinical goals for the shift include remain comfortable, use call light for any needs through this shift. [facility] Work Phone: [phone] 382-113907-04-2024 Consult note* Ru Mills DO - 10/11/2023 11:13 AM EDTAssociated Order(s): IP CONSULT TO NEPHROLOGY Reason For Consult Hyponatremia History Of Present Illness Daryn Shah is a 77 y.o. female presenting with weakness. She presented to the emergency room secondary to generalized weakness. She states that she was not doing well at home she normally lives at home with her son and her son helps take care of her however he underwent hospitalization himself and so she was at home by herself she started having back pain and got worried and so presented to the emergency room She is not able to walk but she states that she usually can get herself scooted from the bed to herelectric wheelchair and has been doing this for over a year. 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 Surgical History She has a past surgical history that includes Other surgical history (01/03/2019); Other surgical history (02/11/2019); Other surgical history (02/11/2019); Other surgical history (02/11/2019); and Colonoscopy (09/22/2011). Social History She reports that she has never smoked. She has never used smokeless tobacco. She reports that she does not drink alcohol and does not use drugs. Family History Family History Problem Relation Name Age of Onset Cancer Mother Alzheimer's disease Mother Other (cardiac disorder) Mother Breast cancer Mother Cystic fibrosis Brother Diabetes Other Allergies Patient has no known allergies. Review of Systems A full 10 point review of systems was obtained is negative except HPI as above Physical Exam Physical Exam Constitutional: Appearance: Normal appearance. She is obese. HENT: Head: Normocephalic and atraumatic. Right Ear: External ear normal. Left Ear: External ear normal. Nose: Nose normal. Mouth/Throat: Mouth: Mucous membranes are moist. Pharynx: Oropharynx is clear. Eyes: Extraocular Movements: Extraocular movements intact. Conjunctiva/sclera: Conjunctivae normal. Pupils: Pupils are equal, round, and reactive to light. Cardiovascular: Rate and Rhythm: Normal rate and regular rhythm. Pulmonary: Effort: Pulmonary effort is normal. Breath sounds: Normal breath sounds. Abdominal: General: Abdomen is flat. Palpations: Abdomen is soft. Musculoskeletal: General: No swelling. Skin: General: Skin is warm and dry. Neurological: General: No focal deficit present. Mental Status: She is alert and oriented to person, place, and time. Psychiatric: Mood and Affect: Mood normal. Behavior: Behavior normal. I&O 24HR Intake/Output Summary (Last 24 hours) at 10/11/2023 1113 Last data filed at 10/11/2023 0900 Gross per 24 hour Intake 1002.5 ml Output 675 ml Net 327.5 ml Vitals 24HR Heart Rate: [80-96] Temp: [35.9 C (96.6 F)-36.8 C (98.3 F)] Resp: [18-19] BP: (102-133)/(67-87) SpO2: [90 %-95 %] Scheduled medications atenolol, 100 mg, oral, Daily cefTRIAXone, 1 g, intravenous, q24h cholecalciferol, 2,000 Units, oral, Daily ferrous gluconate, 38 mg of iron, oral, Daily with breakfast insulin lispro, 0-10 Units, subcutaneous, TID lisinopril, 5 mg, oral, Daily magnesium oxide, 200 mg, oral, Daily oxygen, , inhalation, Continuous - Inhalation phenazopyridine, 200 mg, oral, TID polyethylene glycol, 17 g, oral, Daily rivaroxaban, 20 mg, oral, Daily rosuvastatin, 10 mg, oral, Nightly sennosides-docusate sodium, 2 tablet, oral, BID venlafaxine XR, 75 mg, oral, Daily Continuous medications sodium chloride 0.9%, 75 mL/hr, Last Rate: 75 mL/hr (10/11/23 0443) PRN medications PRN medications: acetaminophen, albuterol, baclofen, dextrose, dextrose, glucagon, glucagon, magnesium hydroxide, ondansetron Relevant Results Results reviewed Assessment/Plan Hyponatremia with known underlying SIADH Peripheral edema with volume overload and chronic lymphedema: Clinically looks quite stable and euvolemic at this time Obesity Weakness with inability to walk Urinary tract infection with greater than 100,000 gram-negative bacilli Iron deficiency anemia with anemia of chronic disease present Diabetes mellitus type 2 Hypertension Plan: I have worked her up in the past and she has definite evidence of SIADH In the past with supportive measures we were able to bring her sodium level back to normal I will discontinue IV fluids Fluid restriction I will discontinue lisinopril blood pressure does follow low at times She is currently on Rocephin covering her for a urinary tract infection Follow cultures Thanks for the consult Principal Problem: Hyponatremia Ru Mills DO [facility] Work Phone: [phone] 307-819807-04-2024 Consult note* Ru Mills DO - 10/11/2023 11:13 AM EDTAssociated Order(s): IP CONSULT TO NEPHROLOGY Reason For Consult Hyponatremia History Of Present Illness Daryn Shah is a 77 y.o. female presenting with weakness. She presented to the emergency room secondary to generalized weakness. She states that she was not doing well at home she normally lives at home with her son and her son helps take care of her however he underwent hospitalization himself and so she was at home by herself she started having back pain and got worried and so presented to the emergency room She is not able to walk but she states that she usually can get herself scooted from the bed to herelectric wheelchair and has been doing this for over a year. 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 Surgical History She has a past surgical history that includes Other surgical history (01/03/2019); Other surgical history (02/11/2019); Other surgical history (02/11/2019); Other surgical history (02/11/2019); and Colonoscopy (09/22/2011). Social History She reports that she has never smoked. She has never used smokeless tobacco. She reports that she does not drink alcohol and does not use drugs. Family History Family History Problem Relation Name Age of Onset Cancer Mother Alzheimer's disease Mother Other (cardiac disorder) Mother Breast cancer Mother Cystic fibrosis Brother Diabetes Other Allergies Patient has no known allergies. Review of Systems A full 10 point review of systems was obtained is negative except HPI as above Physical Exam Physical Exam Constitutional: Appearance: Normal appearance. She is obese. HENT: Head: Normocephalic and atraumatic. Right Ear: External ear normal. Left Ear: External ear normal. Nose: Nose normal. Mouth/Throat: Mouth: Mucous membranes are moist. Pharynx: Oropharynx is clear. Eyes: Extraocular Movements: Extraocular movements intact. Conjunctiva/sclera: Conjunctivae normal. Pupils: Pupils are equal, round, and reactive to light. Cardiovascular: Rate and Rhythm: Normal rate and regular rhythm. Pulmonary: Effort: Pulmonary effort is normal. Breath sounds: Normal breath sounds. Abdominal: General: Abdomen is flat. Palpations: Abdomen is soft. Musculoskeletal: General: No swelling. Skin: General: Skin is warm and dry. Neurological: General: No focal deficit present. Mental Status: She is alert and oriented to person, place, and time. Psychiatric: Mood and Affect: Mood normal. Behavior: Behavior normal. I&O 24HR Intake/Output Summary (Last 24 hours) at 10/11/2023 1113 Last data filed at 10/11/2023 0900 Gross per 24 hour Intake 1002.5 ml Output 675 ml Net 327.5 ml Vitals 24HR Heart Rate: [80-96] Temp: [35.9 C (96.6 F)-36.8 C (98.3 F)] Resp: [18-19] BP: (102-133)/(67-87) SpO2: [90 %-95 %] Scheduled medications atenolol, 100 mg, oral, Daily cefTRIAXone, 1 g, intravenous, q24h cholecalciferol, 2,000 Units, oral, Daily ferrous gluconate, 38 mg of iron, oral, Daily with breakfast insulin lispro, 0-10 Units, subcutaneous, TID lisinopril, 5 mg, oral, Daily magnesium oxide, 200 mg, oral, Daily oxygen, , inhalation, Continuous - Inhalation phenazopyridine, 200 mg, oral, TID polyethylene glycol, 17 g, oral, Daily rivaroxaban, 20 mg, oral, Daily rosuvastatin, 10 mg, oral, Nightly sennosides-docusate sodium, 2 tablet, oral, BID venlafaxine XR, 75 mg, oral, Daily Continuous medications sodium chloride 0.9%, 75 mL/hr, Last Rate: 75 mL/hr (10/11/23 0443) PRN medications PRN medications: acetaminophen, albuterol, baclofen, dextrose, dextrose, glucagon, glucagon, magnesium hydroxide, ondansetron Relevant Results Results reviewed Assessment/Plan Hyponatremia with known underlying SIADH Peripheral edema with volume overload and chronic lymphedema: Clinically looks quite stable and euvolemic at this time Obesity Weakness with inability to walk Urinary tract infection with greater than 100,000 gram-negative bacilli Iron deficiency anemia with anemia of chronic disease present Diabetes mellitus type 2 Hypertension Plan: I have worked her up in the past and she has definite evidence of SIADH In the past with supportive measures we were able to bring her sodium level back to normal I will discontinue IV fluids Fluid restriction I will discontinue lisinopril blood pressure does follow low at times She is currently on Rocephin covering her for a urinary tract infection Follow cultures Thanks for the consult Principal Problem: Hyponatremia Ru Mills DO * Eboni Martínez RN - 10/10/2023 12:14 PM EDT Images from the original note were not included. Wound Care Consult Visit Date: 10/10/2023 Patient Name: Daryn Shah Date of : 1945 Reason for Consult: Right lower extremity ulcer Wound History: Patient states this area opens/closes frequently due to self- induced scratching/picking for approximately the past two years. This current episode has been open for approx. 8 weeks. Pertinent Labs: Albumin Date Value Ref Range Status 08/03/2023 4.1 3.4 - 5.0 g/dL Final Wound Assessment: Wound 10/10/23 Diabetic Ulcer Pretibial Right;Lateral (Active) Wound Image 10/10/23 1214 Site Assessment Dark edges;Granulation;Red 10/10/23 1214 Regine-Wound Assessment Dark edges;Yellow-brown (Hemosiderin staining) 10/10/23 1214 Non-staged Wound Description Full thickness 10/10/23 1214 Shape Oval 10/10/23 1214 Wound Length (cm) 2.8 cm 10/10/23 1214 Wound Width (cm) 4.6 cm 10/10/23 1214 Wound Surface Area (cm^2) 12.88 cm^2 10/10/23 1214 Wound Depth (cm) 0.1 cm 10/10/23 1214 Wound Volume (cm^3) 1.288 cm^3 10/10/23 1214 State of Healing Non-healing;Eschar 10/10/23 1214 Wound Bed Granulation (%) 80 % 10/10/23 1214 Wound Bed Eschar (%) 20 % 10/10/23 1214 Tunneling 0 cm 10/10/23 1214 Undermining 0 cm 10/10/23 1214 Margins Well-defined edges 10/10/23 1214 Drainage Description Sanguineous 10/10/23 1214 Drainage Amount Small 10/10/23 1214 Dressing Xeroform;Foam 10/10/23 1214 Dressing Changed Changed 10/10/23 1214 Dressing Status Removed;Old drainage 10/10/23 1214 Wound Team Summary Assessment: Patient seen for 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 Exam conducted withpatient. States open area has been chronic for approximately two years. Skin hygiene and dressing care provided. See detailed assessment above from flowsheet. Recommendations below, reviewed with hospital provider Love Gibbs CNP. Wound Team Plan: Wound location: Right anterior lower extremity Treatment protocol recommended: Cleanse with soap and water and pat dry. Apply xeroform to wound bed. Cover with Mepilex silicone bordered foam dressing. Change daily and PRN if soiled. Nursing updated and to follow provider orders and re-consult wound RN if needed. Reposition patientfrequently to prevent any further skin breakdown. Encourage patient not to pick or scratch area. See above recommendations for treatment. I would recommend follow up with PCP upon discharge. Patient will likely continue to require skilled assistance with skin hygiene and wound care and may require SNF vs HHC upon discharge. Discharge plan TBD per care transitions. Please contact me with questions or changes in patient condition. Eboni Martínez RN Wound /Diabetic Education [phone] Eboni Martínez RN 10/10/2023 12:45 PM * Yennifer Harper RDN, LD - 10/10/2023 11:33 AM EDTAssociated Order(s): IP CONSULT TO NUTRITION SERVICES Nutrition Initial Assessment: Nutrition Assessment Reason for Assessment: Admission nursing screening Patient is a 77 y.o. female presenting with Hyponatremia 10/10/23 patient seen - stated has not been eating well for 1 week due to stress. Son assists with her care - both help prepare meals, has groceries delivered from [employer]. Does not like meat - cheese and eggs are only protein. Encouraged yogurt, cottage cheese, milk, peanut butter. Agreed to Ensure plus HP for additional protein. Nutrition History: Energy Intake: Poor < 50 % Food and Nutrient History: patient stated poor appetite x 1 week due to stress Vitamin/Herbal Supplement Use: Vit D, Cinnamon, Iron, MVI Food Allergies/Intolerances: None GI Symptoms: None Oral Problems: None Anthropometrics: Height: 167.6 cm (5' 6) Weight: 113 kg (250 lb) BMI (Calculated): 40.37 IBW/kg (Dietitian Calculated): 59 kg Percent of IBW: 192 % Adjusted Body Weight (kg): 72.5 kg Weight History: Daily Weight 10/10/23 : 113 kg (250 lb) 06/10/23 : 112 kg (248 lb) 10/13/22 : 112 kg (248 lb) 11/13/19 : (!) 139 kg (307 lb) 10/30/19 : (!) 139 kg (307 lb) 05/20/19 : (!) 139 kg (306 lb) Weight Change %: Weight History / % Weight Change: loss 6# 3% in 1 year Significant Weight Loss: No Nutrition Focused Physical Exam Findings: Subcutaneous Fat Loss: Orbital Fat Pads: Well nourished (slightly bulging fat pads) Buccal Fat Pads: Well nourished (full, rounded cheeks) Triceps: Well nourished (ample fat tissue) Ribs: Well nourished (chest is full, ribs do not show, slight to no protrusion of the iliac crest) Muscle Wasting: Temporalis: Mild-Moderate (slight depression) Pectoralis (Clavicular Region): Well nourished (clavicle not visible) Deltoid/Trapezius: Well nourished (rounded appearance at arm, shoulder, neck) Interosseous: Well nourished (muscle bulges) Trapezius/Infraspinatus/Supraspinatus (Scapular Region): Well nourished (bones not prominent, muscle taut) Quadriceps: Well nourished (well developed, well rounded) Gastrocnemius: Well nourished (well developed bulbous muscle) Edema: Edema: +2 mild Edema Location: BLE Physical Findings: Hair: Negative Eyes: Positive (pale conjunctiva) Mouth: Negative Nails: Negative Skin: Positive (DM ulcer Tibia) Nutrition Significant Labs: A1C: Lab Results Component Value Date HGBA1C 7.2 (H) 03/06/2023 , BG POCT trend: Results from last 7 days Lab Units 10/10/23 1132 10/10/23 0737 10/10/23 0123 POCT GLUCOSE mg/dL 187* 215* 174* , Renal Lab Trend: Results from last 7 days Lab Units 10/10/23 0758 10/10/23 0152 POTASSIUM mmol/L 3.9 4.2 SODIUM mmol/L 125* 126* EGFR mL/min/1.73m*2 54* 53* BUN mg/dL 32* 31* CREATININE mg/dL 1.08* 1.09* Nutrition Specific Medications: Scheduled medications cholecalciferol, 2,000 Units, oral, Daily ferrous gluconate, 38 mg of iron, oral, Daily with breakfast insulin lispro, 0-10 Units, subcutaneous, TID magnesium oxide, 200 mg, oral, Daily polyethylene glycol, 17 g, oral, Daily sennosides-docusate sodium, 2 tablet, oral, BID I/O: Last BM Date: 10/03/23 (Per patient report); Dietary Orders (From admission, onward) Start Ordered 10/10/23 0936 Oral nutritional supplements Until discontinued Comments: chocolate Question Answer Comment Deliver with Lunch Select supplement: Ensure Plus High Protein 10/10/23 0936 10/10/23 0840 Adult diet Cardiac, Carb Controlled; 60 gram carb/meal, 30 gram Carb evening snack; 70 gm fat; 2 - 3 grams Sodium Diet effective now Question Answer Comment Diet type Cardiac Diet type Carb Controlled Carb diet selection: 60 gram carb/meal, 30 gram Carb evening snack Fat restriction: 70 gm fat Sodium restriction: 2 - 3 grams Sodium 10/10/23 0839 10/10/23 0557 May Participate in Room Service Once Question: . Answer: Yes 10/10/23 0556 Estimated Needs: Total Energy Estimated Needs (kCal): 2100 kCal Method for Estimating Needs: [address] or = 0740-3747 kcal Total Protein Estimated Needs (g): 100 g Method for Estimating Needs: 1.25-1.5 gm/kg Ajusted IBW 91-110 gm Total Fluid Estimated Needs (mL): 2100 mL Method for Estimating Needs: 1 ml/kcal Nutrition Diagnosis Malnutrition Diagnosis Patient has Malnutrition Diagnosis: No Nutrition Diagnosis Patient has Nutrition Diagnosis: Yes Diagnosis Status (1): New Nutrition Diagnosis 1: Predicted inadequate nutrient intake Related to (1): patient food preferences As Evidenced by (1): dislikes meat - eats cheese, eggs only Additional Nutrition Diagnosis: Diagnosis 2 Diagnosis Status (2): New Nutrition Diagnosis 2: Obese Related to (2): excess calorie intake As Evidenced by (2): BMI 40.35 kg/m2 Nutrition Interventions/Recommendations Nutrition Prescription: Individualized Nutrition Prescription Provided for : Oral nutrition Nutrition Interventions: Interventions: Meals and snacks, Medical food supplement Meals and Snacks: Carbohydrate-modified diet Goal: CCD diet Medical Food Supplement: Commercial beverage Goal: Ensure plus HP x 1 = 350 kcal, 20 gm protein for additional protein intake Collaboration and Referral of Nutrition Care: Team meeting involving nutrition professional Goal: IDT meeting Nutrition Education: Explained meal service and oral nutritional supplement, Protein foods Nutrition Monitoring and Evaluation Food/Nutrient Related History Monitoring Monitoring and Evaluation Plan: Amount of food Amount of Food: Estimated amout of food, Medical food intake Criteria: >75% meals Additional Plans: >75% Ensure plus HP Body Composition/Growth/Weight History Monitoring and Evaluation Plan: BMI Body Mass: Body mass index (BMI) Criteria: Would benefit from slow weight loss toward healthyt BMI Biochemical Data, Medical Tests and Procedures Monitoring and Evaluation Plan: Glucose/endocrine profile Glucose/Endocrine Profile: Glucose, casual Criteria: 100-140 mg/dl Nutrition Focused Physical Findings Monitoring and Evaluation Plan: Skin Skin: Impaired wound healing Criteria: Improvement in DM ulcer Time Spent (min): 30 minutes Yennifer Harper RDN, LD documented in this [facility] Work Phone: 1(364) 546-321707-04-2024 Plan of care note* Care Plan - Yanira Jones RN - 10/11/2023 4:03 AM EDT Problem: Skin Goal: Prevent/manage excess moisture Outcome: Met Goal: Promote skin healing Outcome: Met Problem: Pain - Adult Goal: Verbalizes/displays adequate comfort level or baseline comfort level Outcome: Met Problem: Safety - Adult Goal: Free from fall injury Outcome: Met Problem: Fall/Injury Goal: Not fall by end of shift Outcome: Met Goal: Be free from injury by end of the shift Outcome: Met The patient's goals for the shift include The clinical goals for the shift include remain comortable [facility] Work Phone: [phone]) 739-190707-03-2024 Consult note* Eboni Martínez RN - 10/10/2023 12:14 PM EDT Images from the original note were not included. Wound Care Consult Visit Date: 10/10/2023 Patient Name: Daryn Shah Date of : 1945 Reason for Consult: Right lower extremity ulcer Wound History: Patient states this area opens/closes frequently due to self- induced scratching/picking for approximately the past two years. This current episode has been open for approx. 8 weeks. Pertinent Labs: Albumin Date Value Ref Range Status 08/03/2023 4.1 3.4 - 5.0 g/dL Final Wound Assessment: Wound 10/10/23 Diabetic Ulcer Pretibial Right;Lateral (Active) Wound Image 10/10/23 1214 Site Assessment Dark edges;Granulation;Red 10/10/23 1214 Regine-Wound Assessment Dark edges;Yellow-brown (Hemosiderin staining) 10/10/23 1214 Non-staged Wound Description Full thickness 10/10/23 1214 Shape Oval 10/10/23 1214 Wound Length (cm) 2.8 cm 10/10/23 1214 Wound Width (cm) 4.6 cm 10/10/23 1214 Wound Surface Area (cm^2) 12.88 cm^2 10/10/23 1214 Wound Depth (cm) 0.1 cm 10/10/23 1214 Wound Volume (cm^3) 1.288 cm^3 10/10/23 1214 State of Healing Non-healing;Eschar 10/10/23 1214 Wound Bed Granulation (%) 80 % 10/10/23 1214 Wound Bed Eschar (%) 20 % 10/10/23 1214 Tunneling 0 cm 10/10/23 1214 Undermining 0 cm 10/10/23 1214 Margins Well-defined edges 10/10/23 1214 Drainage Description Sanguineous 10/10/23 1214 Drainage Amount Small 10/10/23 1214 Dressing Xeroform;Foam 10/10/23 1214 Dressing Changed Changed 10/10/23 1214 Dressing Status Removed;Old drainage 10/10/23 1214 Wound Team Summary Assessment: Patient seen for 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 Exam conducted withpatient. States open area has been chronic for approximately two years. Skin hygiene and dressing care provided. See detailed assessment above from flowsheet. Recommendations below, reviewed with hospital provider Love Gibbs CNP. Wound Team Plan: Wound location: Right anterior lower extremity Treatment protocol recommended: Cleanse with soap and water and pat dry. Apply xeroform to wound bed. Cover with Mepilex silicone bordered foam dressing. Change daily and PRN if soiled. Nursing updated and to follow provider orders and re-consult wound RN if needed. Reposition patientfrequently to prevent any further skin breakdown. Encourage patient not to pick or scratch area. See above recommendations for treatment. I would recommend follow up with PCP upon discharge. Patient will likely continue to require skilled assistance with skin hygiene and wound care and may require SNF vs HHC upon discharge. Discharge plan TBD per care transitions. Please contact me with questions or changes in patient condition. Eboni Martínez RN Wound /Diabetic Education [phone] Eboni Martínez RN 10/10/2023 12:45 PM [facility]07-03-2024 Consult note* Yennifer Harper RDN, LD - 10/10/2023 11:33 AM EDTAssociated Order(s): IP CONSULT TO NUTRITION SERVICES Nutrition Initial Assessment: Nutrition Assessment Reason for Assessment: Admission nursing screening Patient is a 77 y.o. female presenting with Hyponatremia 10/10/23 patient seen - stated has not been eating well for 1 week due to stress. Son assists with her care - both help prepare meals, has groceries delivered from [employer]. Does not like meat - cheese and eggs are only protein. Encouraged yogurt, cottage cheese, milk, peanut butter. Agreed to Ensure plus HP for additional protein. Nutrition History: Energy Intake: Poor < 50 % Food and Nutrient History: patient stated poor appetite x 1 week due to stress Vitamin/Herbal Supplement Use: Vit D, Cinnamon, Iron, MVI Food Allergies/Intolerances: None GI Symptoms: None Oral Problems: None Anthropometrics: Height: 167.6 cm (5' 6) Weight: 113 kg (250 lb) BMI (Calculated): 40.37 IBW/kg (Dietitian Calculated): 59 kg Percent of IBW: 192 % Adjusted Body Weight (kg): 72.5 kg Weight History: Daily Weight 10/10/23 : 113 kg (250 lb) 06/10/23 : 112 kg (248 lb) 10/13/22 : 112 kg (248 lb) 11/13/19 : (!) 139 kg (307 lb) 10/30/19 : (!) 139 kg (307 lb) 05/20/19 : (!) 139 kg (306 lb) Weight Change %: Weight History / % Weight Change: loss 6# 3% in 1 year Significant Weight Loss: No Nutrition Focused Physical Exam Findings: Subcutaneous Fat Loss: Orbital Fat Pads: Well nourished (slightly bulging fat pads) Buccal Fat Pads: Well nourished (full, rounded cheeks) Triceps: Well nourished (ample fat tissue) Ribs: Well nourished (chest is full, ribs do not show, slight to no protrusion of the iliac crest) Muscle Wasting: Temporalis: Mild-Moderate (slight depression) Pectoralis (Clavicular Region): Well nourished (clavicle not visible) Deltoid/Trapezius: Well nourished (rounded appearance at arm, shoulder, neck) Interosseous: Well nourished (muscle bulges) Trapezius/Infraspinatus/Supraspinatus (Scapular Region): Well nourished (bones not prominent, muscle taut) Quadriceps: Well nourished (well developed, well rounded) Gastrocnemius: Well nourished (well developed bulbous muscle) Edema: Edema: +2 mild Edema Location: BLE Physical Findings: Hair: Negative Eyes: Positive (pale conjunctiva) Mouth: Negative Nails: Negative Skin: Positive (DM ulcer Tibia) Nutrition Significant Labs: A1C: Lab Results Component Value Date HGBA1C 7.2 (H) 03/06/2023 , BG POCT trend: Results from last 7 days Lab Units 10/10/23 1132 10/10/23 0737 10/10/23 0123 POCT GLUCOSE mg/dL 187* 215* 174* , Renal Lab Trend: Results from last 7 days Lab Units 10/10/23 0758 10/10/23 0152 POTASSIUM mmol/L 3.9 4.2 SODIUM mmol/L 125* 126* EGFR mL/min/1.73m*2 54* 53* BUN mg/dL 32* 31* CREATININE mg/dL 1.08* 1.09* Nutrition Specific Medications: Scheduled medications cholecalciferol, 2,000 Units, oral, Daily ferrous gluconate, 38 mg of iron, oral, Daily with breakfast insulin lispro, 0-10 Units, subcutaneous, TID magnesium oxide, 200 mg, oral, Daily polyethylene glycol, 17 g, oral, Daily sennosides-docusate sodium, 2 tablet, oral, BID I/O: Last BM Date: 10/03/23 (Per patient report); Dietary Orders (From admission, onward) Start Ordered 10/10/23 0936 Oral nutritional supplements Until discontinued Comments: chocolate Question Answer Comment Deliver with Lunch Select supplement: Ensure Plus High Protein 10/10/23 0936 10/10/23 0840 Adult diet Cardiac, Carb Controlled; 60 gram carb/meal, 30 gram Carb evening snack; 70 gm fat; 2 - 3 grams Sodium Diet effective now Question Answer Comment Diet type Cardiac Diet type Carb Controlled Carb diet selection: 60 gram carb/meal, 30 gram Carb evening snack Fat restriction: 70 gm fat Sodium restriction: 2 - 3 grams Sodium 10/10/23 0839 10/10/23 0557 May Participate in Room Service Once Question: . Answer: Yes 10/10/23 0556 Estimated Needs: Total Energy Estimated Needs (kCal): 2100 kCal Method for Estimating Needs: [address] Jeor = 5351-3757 kcal Total Protein Estimated Needs (g): 100 g Method for Estimating Needs: 1.25-1.5 gm/kg Ajusted IBW 91-110 gm Total Fluid Estimated Needs (mL): 2100 mL Method for Estimating Needs: 1 ml/kcal Nutrition Diagnosis Malnutrition Diagnosis Patient has Malnutrition Diagnosis: No Nutrition Diagnosis Patient has Nutrition Diagnosis: Yes Diagnosis Status (1): New Nutrition Diagnosis 1: Predicted inadequate nutrient intake Related to (1): patient food preferences As Evidenced by (1): dislikes meat - eats cheese, eggs only Additional Nutrition Diagnosis: Diagnosis 2 Diagnosis Status (2): New Nutrition Diagnosis 2: Obese Related to (2): excess calorie intake As Evidenced by (2): BMI 40.35 kg/m2 Nutrition Interventions/Recommendations Nutrition Prescription: Individualized Nutrition Prescription Provided for : Oral nutrition Nutrition Interventions: Interventions: Meals and snacks, Medical food supplement Meals and Snacks: Carbohydrate-modified diet Goal: CCD diet Medical Food Supplement: Commercial beverage Goal: Ensure plus HP x 1 = 350 kcal, 20 gm protein for additional protein intake Collaboration and Referral of Nutrition Care: Team meeting involving nutrition professional Goal: IDT meeting Nutrition Education: Explained meal service and oral nutritional supplement, Protein foods Nutrition Monitoring and Evaluation Food/Nutrient Related History Monitoring Monitoring and Evaluation Plan: Amount of food Amount of Food: Estimated amout of food, Medical food intake Criteria: >75% meals Additional Plans: >75% Ensure plus HP Body Composition/Growth/Weight History Monitoring and Evaluation Plan: BMI Body Mass: Body mass index (BMI) Criteria: Would benefit from slow weight loss toward healthyt BMI Biochemical Data, Medical Tests and Procedures Monitoring and Evaluation Plan: Glucose/endocrine profile Glucose/Endocrine Profile: Glucose, casual Criteria: 100-140 mg/dl Nutrition Focused Physical Findings Monitoring and Evaluation Plan: Skin Skin: Impaired wound healing Criteria: Improvement in DM ulcer Time Spent (min): 30 minutes Yennifer Harper RDN, LD T [facility] Work Phone: [phone]) 851-371807-03-2024 Plan of care note* Care Plan - Fátima Guadarrama RN - 10/10/2023 11:22 AM EDT Problem: Nutrition Goal: Less than 5 days NPO/clear liquids Outcome: Progressing Goal: Oral intake greater than 50% Outcome: Progressing Goal: Oral intake greater 75% Outcome: Progressing Goal: Consume prescribed supplement Outcome: Progressing Goal: Adequate PO fluid intake Outcome: Progressing Goal: Nutrition support goals are met within 48 hrs Outcome: Progressing Goal: Nutrition support is meeting 75% of nutrient needs Outcome: Progressing Goal: Tube feed tolerance Outcome: Progressing Goal: BG 80-180 mg/dL Outcome: Progressing Goal: Lab values WNL Outcome: Progressing Goal: Electrolytes WNL Outcome: Progressing Goal: Promote healing Outcome: Progressing Goal: Maintain stable weight Outcome: Progressing Goal: Reduce weight from edema/fluid Outcome: Progressing Goal: Gradual weight gain Outcome: Progressing Goal: Improve ostomy output Outcome: Progressing Problem: Skin Goal: Decreased wound size/increased tissue granulation at next dressing change Outcome: Progressing Flowsheets (Taken 10/10/2023 1121) Decreased wound size/increased tissue granulation at next dressing change: Protective dressings over bony prominences Goal: Participates in plan/prevention/treatment measures Outcome: Progressing Flowsheets (Taken 10/10/20231120) Participates in plan/prevention/treatment measures: Elevate heels Goal: Prevent/manage excess moisture Outcome: Progressing Flowsheets (Taken 10/10/20231120) Prevent/manage excess moisture: Monitor for/manage infection if present Goal: Prevent/minimize sheer/friction injuries Outcome: Progressing Flowsheets (Taken 10/10/20231120) Prevent/minimize sheer/friction injuries: HOB 30 degrees or less Goal: Promote/optimize nutrition Outcome: Progressing Flowsheets (Taken 10/10/20231120) Promote/optimize nutrition: Consume > 50% meals/supplements Goal: Promote skin healing Outcome: Progressing Flowsheets (Taken 10/10/20231120) Promote skin healing: Rotate device position/do not position patient on device Problem: Pain - Adult Goal: Verbalizes/displays adequate comfort level or baseline comfort level Outcome: Progressing Problem: Safety - Adult Goal: Free from fall injury Outcome: Progressing Problem: Discharge Planning Goal: Discharge to home or other facility with appropriate resources Outcome: Progressing The patient's goals for the shift include The clinical goals for the shift include to remain comfortable throughout the shift. [facility] Work Phone: [phone]) [phone] Note* Treatment Plan - Love Gibbs APRN-SUPPLY CHAIN ASSOCIATE - 10/10/2023 9:49 AM EDT Pt admitted after midnight. Dr. Mills consulted due to continued hyponatremia despite IVF. Also awaiting therapy recommendations, due to bladder spasms will add pyridium General Appearance: AAO x 3, not in acute distress Skin: skin color pink, warm, and dry; no suspicious rashes or lesions Eyes : PERRL, EOM's intact ENT: mucous membranes pink and moist Neck: normocephalic Respiratory: lungs clear to auscultation anteriorly; no wheezing, rhonchi, or crackles. Heart: irregular rate and rhythm. telemetry shows Sinus rhythm Abdomen: positive bowel sounds x4, soft, nontender, obese Extremities: no edema noted nemo lower ext, Peripheral pulses: normal x4 extremities Neuro: alert, coherent and conversant, no focal motor deficits. T [facility] Work Phone: 1(311) 905-827407-03-2024 History and physical note* Renetta Romero MD - 10/10/2023 4:27 AM EDT HISTORY AND PHYSICAL EXAMINATION Daryn Shah 1945 77 y.o. [id number] 10/10/23 4:27 AM CHIEF COMPLAINT: Generalized weakness. HISTORY OF PRESENT ILLNESS: This is a 77 years old female patient with past medical history as mentioned below [facility] not [facility], weakness and back discomfort. The patient is bedridden and not ambulating several years and her son is the caregiver at home. She mentioned that her son issick and he was admitted to another hospital. She mentioned that over the last couple of days, she has been very weak, tired and not able to take care of herself. He thinks that she had urine tract infection and her symptoms are similar to before when she had UTI. She denies urinary symptoms such as dysuria, hematuria or change in the color of the urine. She denied abdominal pain, nausea or vomiting. She denied fever or chills. She denied cough, sputum production or shortness of breath. She is not on home oxygen. In the emergency department, she was afebrile, heart rate was around 110 bpm andthen improved down to around 80s. Blood pressure stable. Routine blood work is remarkable for sodium of 126, BUN is 31, creatinine is 1.09, WBC 17.2. Urinalysis revealed turbid urine, positive for nitrite, 500 leukocyte esterase and there was 21-50 WBCs as well as +[address] scan abdomen showed several nonobstructing left kidney stone, stable splenomegaly, stable right middle lobe nodules, no other acute findings. Chest x-ray showed no acute infiltrate or consolidation. Patient is being adm itted for urinary tract infection, hyponatremia, physical debility and functional decline as well as inability to care for herself. 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 Past Surgical History: Procedure Laterality Date COLONOSCOPY 09/22/2011 Colonoscopy OTHER SURGICAL HISTORY 01/03/2019 section OTHER SURGICAL HISTORY 02/11/2019 Cholecystectomy OTHER SURGICAL HISTORY 02/11/2019 Tubal ligation OTHER SURGICAL HISTORY 02/11/2019 Dilation and curettage Family History Problem Relation Name Age of Onset Cancer Mother Alzheimer's disease Mother Other (cardiac disorder) Mother Breast cancer Mother Cystic fibrosis Brother Diabetes Other Social History Socioeconomic History Marital status: Spouse name: Not on file Number of children: Not on file Years of education: Not on file Highest education level: Not on file Occupational History Not on file Tobacco Use Smoking status: Never Smokeless tobacco: Never Vaping Use Vaping status: Never Used Substance and Sexual Activity Alcohol use: Never Drug use: Never Sexual activity: Defer Other Topics Concern Not on file Social History Narrative Not on file Social Determinants of Health Financial Resource Strain: Not on file Food Insecurity: Not on file Transportation Needs: Not on file Physical Activity: Not on file Stress: Not on file Social Connections: Not on file Intimate Partner Violence: Not on file Housing Stability: Not on file Review of systems: Constitutional: Reported fatigue and weakness, negative for chills, diaphoresis and fever. HENT: Negative for congestion, ear discharge, ear pain, hearing loss, rhinorrhea and sneezing. Eyes: Negative for pain, discharge and itching. Respiratory: Negative for cough, chest tightness, shortness of breath. Negative for apnea, choking,wheezing and stridor. Cardiovascular: Negative for chest pain, palpitations and leg swelling. Gastrointestinal: Negative for abdominal distention, abdominal pain, blood in stool, constipation, diarrhea and nausea. Endocrine: Negative for cold intolerance, heat intolerance and polydipsia. Genitourinary: Negative for difficulty urinating, dysuria, flank pain, frequency and hematuria. Musculoskeletal: Negative for arthralgias, back pain and gait problem. Neurological: Negative for dizziness, seizures, syncope, facial asymmetry, speech difficulty, weakness and headaches. Psychiatric/Behavioral: Negative for behavioral problems, confusion and hallucinations. Vital signs: Visit Vitals BP 103/61 (BP Location: Left arm, Patient Position: Sitting) Pulse (!) 110 Temp 37.2 C (98.9 F) Resp 18 Physical examination: General: Awake, alert, oriented, no significant distress, cooperative. HEENT: EOM intact, PERRLA. Neck: Supple, no JVD, no masses, no lymphadenopathy. Chest: Decreased breath sounds bilateral because of body habitus, otherwise clear , no wheezes, no crackles, no rhonchi. Heart: irregular rate and rhythm, S1-S2 normal, no murmur, no gallops. Abdomen: Soft, nontender, no organomegaly, no ascites, no guarding or rigidity, morbidly obese. Neurological: Alert and oriented x3, cranial nerves are intact, normal power and tone of 4 limbs. Skin: No lesions, no skin rash. Warm and dry. Musculoskeletal: Normal, atraumatic, no obvious deformities. Legs: Trace leg edema, stasis dermatitis, no clubbing or cyanosis. Psych: Appropriate mood and behavior. LABS: Lab Results Component Value Date WBC 17.2 (H) 10/10/2023 HGB 13.6 10/10/2023 HCT 41.4 10/10/2023 MCV 82 10/10/2023 PLT 251 10/10/2023 Lab Results Component Value Date GLUCOSE 171 (H) 10/10/2023 CALCIUM 9.3 10/10/2023 NA 126 (L) 10/10/2023 K 4.2 10/10/2023 CO2 27 10/10/2023 CL 86 (L) 10/10/2023 BUN 31 (H) 10/10/2023 CREATININE 1.09 (H) 10/10/2023 Imaging: Procedure Component Value Units Date/Time CT abdomen pelvis wo IV contrast [[id number]] Collected: 10/10/23317 Order Status: Completed Updated: 10/10/23317 Narrative: Interpreted By: Vlad Araya, STUDY: CT ABDOMEN PELVIS WO IV CONTRAST; 10/10/2023 2:45 am INDICATION: Signs/Symptoms:back pain w/o injury. COMPARISON: CT scan of the abdomen 01/05/2020 ACCESSION NUMBER(S): [id number] ORDERING CLINICIAN: FLAVIO MILES TECHNIQUE: Axial noncontrast CT images of the abdomen and pelvis with coronal and sagittal reconstructed images. FINDINGS: LOWER CHEST: Trace right pleural effusion. Bibasilar atelectasis and or scarring. 2 nodules in the right middle lobe measuring up to 10 mm are stable from CT scan of 2019. Mild elevation of the left hemidiaphragm. Coronary artery calcifications noted. ABDOMEN: Lack of intravenous contrast limits evaluation of vessels and solid organs. LIVER: Within normal limits. BILE DUCTS: Normal caliber. GALLBLADDER: Status post cholecystectomy. PANCREAS: [id number] fatty atrophy of the pancreas. SPLEEN: Splenomegaly measuring 13.3 cm in craniocaudal dimension. The superior margin is excluded from the field of view slightly limiting evaluation. ADRENALS: Nodular thickening of the left adrenal gland may relate to hyperplasia or adenomatous change. KIDNEYS, URETERS, URINARY BLADDER: Kidneys are symmetric in size. There are least 3 nonobstructing left renal calculi measuring 2-3 mm. No evidence for right renal or bilateral ureteral calculi. No hydronephrosis, hydroureter or perinephric inflammatory changes. No bladder calculi. Bladder is under distended with apparent wall thickening. VESSELS: Calcific atherosclerosis of the aortoiliac vessels. No aortic aneurysm. RETROPERITONEUM: No pathologically enlarged lymph nodes. PELVIS: REPRODUCTIVE ORGANS: Uterus is present with exophytic coarse calcifications likely relate to calcified subserosal fibroid no adnexal mass. BOWEL: Small hiatal hernia. Stomach is under distended. Visualized loops of bowel are without evidence for obstruction. Moderate stool burden. 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 A few scattered colonic diverticula without evidence for acute diverticulitis. Normal appendix. PERITONEUM: No ascites or free air, no fluid collection. ABDOMINAL WALL: Within normal limits. BONES: Multilevel degenerative changes of the spine. Bilateral hip osteoarthrosis. Interbody fusion at L4-5. Impression: Several nonobstructing left renal calculi measure 2-3 mm. Stable splenomegaly measuring 13.3 cm in craniocaudal dimension. Trace right pleural effusion. Bibasilar atelectasis and or scarring. 2 nodules in the right middle lobe measuring up to 10 mm are stable from CT scan of 2019. Additional findings as noted above. MACRO: None Signed by: Vlad Araya 10/10/2023 3:17 AM Dictation workstation: [id number] XR chest 1 view [[id number]] Collected: 10/10/23211 Order Status: Completed Updated: 10/10/23211 Narrative: Interpreted By: Vlad Araya, STUDY: XR CHEST 1 VIEW; 10/10/2023 2:03 am INDICATION: Signs/Symptoms:weakness. COMPARISON: Chest x-ray 09/08/2022 ACCESSION NUMBER(S): [id number] ORDERING CLINICIAN: FLAVIO MILES FINDINGS: Multiple overlying leads are present. CARDIOMEDIASTINAL SILHOUETTE: Cardiomediastinal silhouette is stable in size and configuration. LUNGS: No consolidation, pleural effusion or pneumothorax. ABDOMEN: No remarkable upper abdominal findings. BONES: Multilevel degenerative changes of the spine. Bilateral shoulder osteoarthrosis. Impression: No acute cardiopulmonary process. MACRO: None Signed by: Vlad Araya 10/10/2023 2:11 AM Dictation workstation: [id number] Assessment/Plan Principal Problem: Hyponatremia #1 hyponatremia: In context of listed history of SIADH in addition to taking Maxide. Patient appeared to be dehydrated, hypovolemic. Plan: Admit to telemetry, bedrest, continue IV fluids with normal saline, hold Maxide, repeat CBC and BMP this morning at 11 AM, PT OT evaluation and treatment. #2 UTI/acute cystitis: Urinalysis reviewed. Plan: Start IV Rocephin, start urine culture. #3 physical debility/functional decline/not able to care for herself: Patient lives at home, her son is the caregiver, he is sick and admitted to another facility. Plan for PT OT, patient may need placement to long-term facility. #4 chronic atrial fibrillation: Initial heart rate was around 110, improved after IV fluids. Plan to continue atenolol for rate control, continue Xarelto for anticoagulation. #5 hypertension: Blood pressure stable, continue lisinopril. #6 anxiety and depression: Continue Effexor. #7 COPD: Without exacerbation. She is only on minimal oxygen by nasal cannula. Denies shortness of breath. Plan for albuterol as needed. #8 type 2 diabetes mellitus: ADA diet, Accu-Cheks, insulin scale, patient is on dulaglutide injections per week. #9 DVT prophylaxis: Continue Xarelto. #10 CODE STATUS: DNR CCA, verified with the patient. Patient clearly mentioned that she does not want CPR, chest compressions or mechanical ventilation. She mentioned that she is 77 years old, has not been ambulated for long time and she does not want to be resuscitated. Renetta Romero MD 10/10/23 6:44 AM [facility] Work Phone: 1([phone]) 855-792407-03-2024 History and physical note* Renetta Romero MD - 10/10/2023 4:27 AM EDT HISTORY AND PHYSICAL EXAMINATION Daryn Shah 1945 77 y.o. [id number] 10/10/23 4:27 AM CHIEF COMPLAINT: Generalized weakness. HISTORY OF PRESENT ILLNESS: This is a 77 years old female patient with past medical history as mentioned below presented to theemergency room because of not feeling well, weakness and back discomfort. The patient is bedridden and not ambulating several years and her son is the caregiver at home. She mentioned that her son issick and he was admitted to another hospital. She mentioned that over the last couple of days, she has been very weak, tired and not able to take care of herself. He thinks that she had urine tract infection and her symptoms are similar to before when she had UTI. She denies urinary symptoms such as dysuria, hematuria or change in the color of the urine. She denied abdominal pain, nausea or vomiting. She denied fever or chills. She denied cough, sputum production or shortness of breath. She is not on home oxygen. In the emergency department, she was afebrile, heart rate was around 110 bpm andthen improved down to around 80s. Blood pressure stable. Routine blood work is remarkable for sodium of 126, BUN is 31, creatinine is 1.09, WBC 17.2. Urinalysis revealed turbid urine, positive for nitrite, 500 leukocyte esterase and there was 21-50 WBCs as well as +[address] scan abdomen showed several nonobstructing left kidney stone, stable splenomegaly, stable right middle lobe nodules, no other acute findings. Chest x-ray showed no acute infiltrate or consolidation. Patient is being adm itted for urinary tract infection, hyponatremia, physical debility and functional decline as well as inability to care for herself. 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 Past Surgical History: Procedure Laterality Date COLONOSCOPY 09/22/2011 Colonoscopy OTHER SURGICAL HISTORY 01/03/2019 section OTHER SURGICAL HISTORY 02/11/2019 Cholecystectomy OTHER SURGICAL HISTORY 02/11/2019 Tubal ligation OTHER SURGICAL HISTORY 02/11/2019 Dilation and curettage Family History Problem Relation Name Age of Onset Cancer Mother Alzheimer's disease Mother Other (cardiac disorder) Mother Breast cancer Mother Cystic fibrosis Brother Diabetes Other Social History Socioeconomic History Marital status: Spouse name: Not on file Number of children: Not on file Years of education: Not on file Highest education level: Not on file Occupational History Not on file Tobacco Use Smoking status: Never Smokeless tobacco: Never Vaping Use Vaping status: Never Used Substance and Sexual Activity Alcohol use: Never Drug use: Never Sexual activity: Defer Other Topics Concern Not on file Social History Narrative Not on file Social Determinants of Health Financial Resource Strain: Not on file Food Insecurity: Not on file Transportation Needs: Not on file Physical Activity: Not on file Stress: Not on file Social Connections: Not on file Intimate Partner Violence: Not on file Housing Stability: Not on file Review of systems: Constitutional: Reported fatigue and weakness, negative for chills, diaphoresis and fever. HENT: Negative for congestion, ear discharge, ear pain, hearing loss, rhinorrhea and sneezing. Eyes: Negative for pain, discharge and itching. Respiratory: Negative for cough, chest tightness, shortness of breath. Negative for apnea, choking,wheezing and stridor. Cardiovascular: Negative for chest pain, palpitations and leg swelling. Gastrointestinal: Negative for abdominal distention, abdominal pain, blood in stool, constipation, diarrhea and nausea. Endocrine: Negative for cold intolerance, heat intolerance and polydipsia. Genitourinary: Negative for difficulty urinating, dysuria, flank pain, frequency and hematuria. Musculoskeletal: Negative for arthralgias, back pain and gait problem. Neurological: Negative for dizziness, seizures, syncope, facial asymmetry, speech difficulty, weakness and headaches. Psychiatric/Behavioral: Negative for behavioral problems, confusion and hallucinations. Vital signs: Visit Vitals BP 103/61 (BP Location: Left arm, Patient Position: Sitting) Pulse (!) 110 Temp 37.2 C (98.9 F) Resp 18 Physical examination: General: Awake, alert, oriented, no significant distress, cooperative. HEENT: EOM intact, PERRLA. Neck: Supple, no JVD, no masses, no lymphadenopathy. Chest: Decreased breath sounds bilateral because of body habitus, otherwise clear , no wheezes, no crackles, no rhonchi. Heart: irregular rate and rhythm, S1-S2 normal, no murmur, no gallops. Abdomen: Soft, nontender, no organomegaly, no ascites, no guarding or rigidity, morbidly obese. Neurological: Alert and oriented x3, cranial nerves are intact, normal power and tone of 4 limbs. Skin: No lesions, no skin rash. Warm and dry. Musculoskeletal: Normal, atraumatic, no obvious deformities. Legs: Trace leg edema, stasis dermatitis, no clubbing or cyanosis. Psych: Appropriate mood and behavior. LABS: Lab Results Component Value Date WBC 17.2 (H) 10/10/2023 HGB 13.6 10/10/2023 HCT 41.4 10/10/2023 MCV 82 10/10/2023 PLT 251 10/10/2023 Lab Results Component Value Date GLUCOSE 171 (H) 10/10/2023 CALCIUM 9.3 10/10/2023 NA 126 (L) 10/10/2023 K 4.2 10/10/2023 CO2 27 10/10/2023 CL 86 (L) 10/10/2023 BUN 31 (H) 10/10/2023 CREATININE 1.09 (H) 10/10/2023 Imaging: Procedure Component Value Units Date/Time CT abdomen pelvis wo IV contrast [[id number]] Collected: 10/10/23317 Order Status: Completed Updated: 10/10/23317 Narrative: Interpreted By: Haidary, Ahmad, STUDY: CT ABDOMEN PELVIS WO IV CONTRAST; 10/10/2023 2:45 am INDICATION: Signs/Symptoms:back pain w/o injury. COMPARISON: CT scan of the abdomen 01/05/2020 ACCESSION NUMBER(S): [id number] ORDERING CLINICIAN: FLAVIO MILES TECHNIQUE: Axial noncontrast CT images of the abdomen and pelvis with coronal and sagittal reconstructed images. FINDINGS: LOWER CHEST: Trace right pleural effusion. Bibasilar atelectasis and or scarring. 2 nodules in the right middle lobe measuring up to 10 mm are stable from CT scan of 2019. Mild elevation of the left hemidiaphragm. Coronary artery calcifications noted. ABDOMEN: Lack of intravenous contrast limits evaluation of vessels and solid organs. LIVER: Within normal limits. BILE DUCTS: Normal caliber. GALLBLADDER: Status post cholecystectomy. PANCREAS: Bgnw-iw-mtjtunhh fatty atrophy of the pancreas. SPLEEN: Splenomegaly measuring 13.3 cm in craniocaudal dimension. The superior margin is excluded from the field of view slightly limiting evaluation. ADRENALS: Nodular thickening of the left adrenal gland may relate to hyperplasia or adenomatous change. KIDNEYS, URETERS, URINARY BLADDER: Kidneys are symmetric in size. There are least 3 nonobstructing left renal calculi measuring 2-3 mm. No evidence for right renal or bilateral ureteral calculi. No hydronephrosis, hydroureter or perinephric inflammatory changes. No bladder calculi. Bladder is under distended with apparent wall thickening. VESSELS: Calcific atherosclerosis of the aortoiliac vessels. No aortic aneurysm. RETROPERITONEUM: No pathologically enlarged lymph nodes. PELVIS: REPRODUCTIVE ORGANS: Uterus is present with exophytic coarse calcifications likely relate to calcified subserosal fibroid no adnexal mass. BOWEL: Small hiatal hernia. Stomach is under distended. Visualized loops of bowel are without evidence for obstruction. Moderate stool burden. 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 A few scattered colonic diverticula without evidence for acute diverticulitis. Normal appendix. PERITONEUM: No ascites or free air, no fluid collection. ABDOMINAL WALL: Within normal limits. BONES: Multilevel degenerative changes of the spine. Bilateral hip osteoarthrosis. Interbody fusion at L4-5. Impression: Several nonobstructing left renal calculi measure 2-3 mm. Stable splenomegaly measuring 13.3 cm in craniocaudal dimension. Trace right pleural effusion. Bibasilar atelectasis and or scarring. 2 nodules in the right middle lobe measuring up to 10 mm are stable from CT scan of 2019. Additional findings as noted above. MACRO: None Signed by: Vlad Araya 10/10/2023 3:17 AM Dictation workstation: [id number] XR chest 1 view [[id number]] Collected: 10/10/23211 Order Status: Completed Updated: 10/10/23211 Narrative: Interpreted By: Vlad Araya, STUDY: XR CHEST 1 VIEW; 10/10/2023 2:03 am INDICATION: Signs/Symptoms:weakness. COMPARISON: Chest x-ray 09/08/2022 ACCESSION NUMBER(S): [id number] ORDERING CLINICIAN: FLAVIO MILES FINDINGS: Multiple overlying leads are present. CARDIOMEDIASTINAL SILHOUETTE: Cardiomediastinal silhouette is stable in size and configuration. LUNGS: No consolidation, pleural effusion or pneumothorax. ABDOMEN: No remarkable upper abdominal findings. BONES: Multilevel degenerative changes of the spine. Bilateral shoulder osteoarthrosis. Impression: No acute cardiopulmonary process. MACRO: None Signed by: Vlad Araya 10/10/2023 2:11 AM Dictation workstation: [id number] Assessment/Plan Principal Problem: Hyponatremia #1 hyponatremia: In context of listed history of SIADH in addition to taking Maxide. Patient appeared to be dehydrated, hypovolemic. Plan: Admit to telemetry, bedrest, continue IV fluids with normal saline, hold Maxide, repeat CBC and BMP this morning at 11 AM, PT OT evaluation and treatment. #2 UTI/acute cystitis: Urinalysis reviewed. Plan: Start IV Rocephin, start urine culture. #3 physical debility/functional decline/not able to care for herself: Patient lives at home, her son is the caregiver, he is sick and admitted to another facility. Plan for PT OT, patient may need placement to long-term facility. #4 chronic atrial fibrillation: Initial heart rate was around 110, improved after IV fluids. Plan to continue atenolol for rate control, continue Xarelto for anticoagulation. #5 hypertension: Blood pressure stable, continue lisinopril. #6 anxiety and depression: Continue Effexor. #7 COPD: Without exacerbation. She is only on minimal oxygen by nasal cannula. Denies shortness of breath. Plan for albuterol as needed. #8 type 2 diabetes mellitus: ADA diet, Accu-Cheks, insulin scale, patient is on dulaglutide injections per week. #9 DVT prophylaxis: Continue Xarelto. #10 CODE STATUS: DNR CCA, verified with the patient. Patient clearly mentioned that she does not want CPR, chest compressions or mechanical ventilation. She mentioned that she is 77 years old, has not been ambulated for long time and she does not want to be resuscitated. Renetta Romero MD 10/10/23 6:44 AM documented in this [facility] Work Phone: 1(708) 469-987907-03-2024 Emergency department Note* Flavio Miles, - 10/10/2023 1:14 AM EDT HPI Chief Complaint Patient presents with Back Pain Pt has been having lower back pain and has had increased weakness this week Patient presents to the emergency department by squad to be evaluated for generalized weakness and back pain. The patient states she has a son who is typically her caregiver and she has not ambulatedin several years. She gets around with a motorized scooter within the house. She is struggled to care for herself at home and presents now to be further evaluated. History provided by: EMS personnel and patient geography instructor used: No No data recorded Patient History Past Medical History: Diagnosis Date Atrial fibrillation (Multi) Cellulitis of unspecified part of limb 10/30/2019 Cellulitis, leg COPD (chronic obstructive pulmonary disease) (Multi) Personal history of diseases of the skin and subcutaneous tissue 08/25/2019 History of dermatitis Personal history of other diseases of the circulatory system 02/05/2019 History of irregular heartbeat Personal history of other diseases of the respiratory system 04/11/2021 History of acute sinusitis Personal history of other diseases of the respiratory system 07/08/2020 History of acute bronchitis Personal history of other diseases of the respiratory system 07/08/2020 History of upper respiratory infection 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 Past Surgical History: Procedure Laterality Date COLONOSCOPY 09/22/2011 Colonoscopy OTHER SURGICAL HISTORY 01/03/2019 section OTHER SURGICAL HISTORY 02/11/2019 Cholecystectomy OTHER SURGICAL HISTORY 02/11/2019 Tubal ligation OTHER SURGICAL HISTORY 02/11/2019 Dilation and curettage Family History Problem Relation Name Age of Onset Cancer Mother Alzheimer's disease Mother Other (cardiac disorder) Mother Breast cancer Mother Cystic fibrosis Brother Diabetes Other Social History Tobacco Use Smoking status: Never Smokeless tobacco: Never Vaping Use Vaping status: Never Used Substance Use Topics Alcohol use: Never Drug use: Never Physical Exam ED Triage Vitals [10/10/23 0124] Temperature Heart Rate Respirations BP 37.2 C (98.9 F) (!) 104 18 141/66 Pulse Ox Temp src Heart Rate Source Patient Position 95 % -- -- -- BP Location FiO2 (%) -- -- Physical Exam Vitals and nursing note reviewed. Constitutional: General: She is not in acute distress. Appearance: Normal appearance. She is obese. She is not ill-appearing, toxic- appearing or diaphoretic. Comments: Appears chronically debilitated. Answers all questions and not confused. HENT: Head: Normocephalic and atraumatic. Nose: Nose normal. No rhinorrhea. Mouth/Throat: Mouth: Mucous membranes are moist. Pharynx: Oropharynx is clear. No oropharyngeal exudate or posterior oropharyngeal erythema. Eyes: Conjunctiva/sclera: Conjunctivae normal. Neck: Comments: Trachea is midline Cardiovascular: Rate and Rhythm: Normal rate. Rhythm irregular. Heart sounds: No murmur heard. Pulmonary: Effort: Pulmonary effort is normal. Breath sounds: Normal breath sounds. No wheezing. Abdominal: General: Abdomen is flat. Bowel sounds are normal. There is no distension. Palpations: Abdomen is soft. Tenderness: There is no abdominal tenderness. Genitourinary: Rectum: Normal. Comments: Digital rectal exam was performed with a female member the nursing staff in the room at all times. There is no evidence of a sacral decubitus or hemorrhoid. Digital exam reveals no stool inthe vault specifically no fecal impaction Musculoskeletal: General: Normal range of motion. Cervical back: Normal range of motion. Skin: General: Skin is warm and dry. Findings: No rash. Neurological: General: No focal deficit present. Mental Status: She is alert and oriented to person, place, and time. Mental status is at baseline. Psychiatric: Mood and Affect: Mood normal. Behavior: Behavior normal. Thought Content: Thought content normal. Judgment: Judgment normal. ED Course & MDM Diagnoses as of 10/10/23 0359 Hyponatremia Medical Decision Making Twelve-lead EKG was interpreted by myself and this was noted to contribute directly to patient care. Study reveals atrial fibrillation at 112 bpm, leftward axis, delayed R wave progression, no acute ischemic changes. Patient was started on IV hydration regards to her hyponatremia which I believe is secondary to decreased free water intake based on the history. Patient case was discussed with the hospitalist who will admit to their service. Procedure Procedures Flavio Miles DO 10/10/23 0402 documented in this [facility] Work Phone: 1(257) 871-261307-03-2024 Physician Emergency department Note* Flavio Miles DO - 10/10/2023 1:14 AM EDT HPI Chief Complaint Patient presents with Back Pain Pt has been having lower back pain and has had increased weakness this week Patient presents to the emergency department by squad to be evaluated for generalized weakness and back pain. The patient states she has a son who is typically her caregiver and she has not ambulatedin several years. She gets around with a motorized scooter within the house. She is struggled to care for herself at home and presents now to be further evaluated. History provided by: EMS personnel and patient geography instructor used: No No data recorded Patient History Past Medical History: Diagnosis Date Atrial fibrillation (Multi) Cellulitis of unspecified part of limb 10/30/2019 Cellulitis, leg COPD (chronic obstructive pulmonary disease) (Multi) Personal history of diseases of the skin and subcutaneous tissue 08/25/2019 History of dermatitis Personal history of other diseases of the circulatory system 02/05/2019 History of irregular heartbeat Personal history of other diseases of the respiratory system 04/11/2021 History of acute sinusitis Personal history of other diseases of the respiratory system 07/08/2020 History of acute bronchitis Personal history of other diseases of the respiratory system 07/08/2020 History of upper respiratory infection 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 Past Surgical History: Procedure Laterality Date COLONOSCOPY 09/22/2011 Colonoscopy OTHER SURGICAL HISTORY 01/03/2019 section OTHER SURGICAL HISTORY 02/11/2019 Cholecystectomy OTHER SURGICAL HISTORY 02/11/2019 Tubal ligation OTHER SURGICAL HISTORY 02/11/2019 Dilation and curettage Family History Problem Relation Name Age of Onset Cancer Mother Alzheimer's disease Mother Other (cardiac disorder) Mother Breast cancer Mother Cystic fibrosis Brother Diabetes Other Social History Tobacco Use Smoking status: Never Smokeless tobacco: Never Vaping Use Vaping status: Never Used Substance Use Topics Alcohol use: Never Drug use: Never Physical Exam ED Triage Vitals [10/10/23 0124] Temperature Heart Rate Respirations BP 37.2 C (98.9 F) (!) 104 18 141/66 Pulse Ox Temp src Heart Rate Source Patient Position 95 % -- -- -- BP Location FiO2 (%) -- -- Physical Exam Vitals and nursing note reviewed. Constitutional: General: She is not in acute distress. Appearance: Normal appearance. She is obese. She is not ill-appearing, toxic- appearing or diaphoretic. Comments: Appears chronically debilitated. Answers all questions and not confused. HENT: Head: Normocephalic and atraumatic. Nose: Nose normal. No rhinorrhea. Mouth/Throat: Mouth: Mucous membranes are moist. Pharynx: Oropharynx is clear. No oropharyngeal exudate or posterior oropharyngeal erythema. Eyes: Conjunctiva/sclera: Conjunctivae normal. Neck: Comments: Trachea is midline Cardiovascular: Rate and Rhythm: Normal rate. Rhythm irregular. Heart sounds: No murmur heard. Pulmonary: Effort: Pulmonary effort is normal. Breath sounds: Normal breath sounds. No wheezing. Abdominal: General: Abdomen is flat. Bowel sounds are normal. There is no distension. Palpations: Abdomen is soft. Tenderness: There is no abdominal tenderness. Genitourinary: Rectum: Normal. Comments: Digital rectal exam was performed with a female member the nursing staff in the room at all times. There is no evidence of a sacral decubitus or hemorrhoid. Digital exam reveals no stool inthe vault specifically no fecal impaction Musculoskeletal: General: Normal range of motion. Cervical back: Normal range of motion. Skin: General: Skin is warm and dry. Findings: No rash. Neurological: General: No focal deficit present. Mental Status: She is alert and oriented to person, place, and time. Mental status is at baseline. Psychiatric: Mood and Affect: Mood normal. Behavior: Behavior normal. Thought Content: Thought content normal. Judgment: Judgment normal. ED Course & MDM Diagnoses as of 10/10/23 0359 Hyponatremia Medical Decision Making Twelve-lead EKG was interpreted by myself and this was noted to contribute directly to patient care. Study reveals atrial fibrillation at 112 bpm, leftward axis, delayed R wave progression, no acute ischemic changes. Patient was started on IV hydration regards to her hyponatremia which I believe is secondary to decreased free water intake based on the history. Patient case was discussed with the hospitalist who will admit to their service. Procedure Procedures Flavio Miles DO 10/10/23 0402 [facility] Work Phone: [phone]) 306-951305-13-2024 History of Present illness Narrative* Jojo You MA - 08/20/2023 3:30 PM EDT z * Huan Mcdaniel MD - 08/20/2023 3:30 PM EDT Subjective Patient ID: Daryn Shah is a 77 y.o. female who presents for Med Management. Virtual or Telephone Consent An interactive audio and video telecommunication system which permits real time communications between the patient (at the originating site) and provider (at the distant site) was utilized to providethis telehealth service. Verbal consent was requested and obtained from Daryn Shah on this date, 08/20/23 for a telehealth visit. HPI Knee arthritis and weak legs. She has not able to come in as she has no adequate transportation forher electric wheelchair. She is able to move from chair to bed. She is off lorazepam so does not need to get in for the CSA and UDS. Ambulation is still limited with an electric wheelchair in the house and needs someone to drive the van. She also has a regular wheelchair. No HHC or palliative care and not interested. . Cannot stand. She slides from bed to wheelchair to Bedside commode. Can use a bed cain as well HTN and Diabetes - went off of metformin and feels better. More energy. Trulicity has been tolerated. Sugars have been running low 100s in AM. A1C is 7.2 in February. Weight is down with Trulicity asclothes looser. Neurodermatitis and Depression and Anxiety - She is trying to choose to be happy as she cannot change her life situation. . She was on Ativan mainly to shut thoughts down and will above. Did wean off. Did take Benadryl and that seems to be working. Less picking at skin. Venous stasis ulcer small on right leg due to scratching. Not red or hot and healing Lymphedema and A fib No Chest pain, Dyspnea, palpitations, numbness, weakness, claudications, or double vision/ loss of vision. Xarelto. No compression and tries to keep elevated. Dr. Valdivia in July SIADH with good sodium in May. 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 No melena or hematochezia. Cologuard 07/25/21. Did have polyps years ago but would rather not do a scope again Lumbar facet arthropathy., Since in wheelchair has not been bothering her. Tired back at hs Vitamin D deficiency - OC supplements and still low in May CSA 05/21/23 Review of Systems Objective There were no vitals taken for this visit. Physical ExamVirtual visit so no exam. Alert. No distress. No dyspnea. Able to tell history withoutdifficulty Assessment/Plan Diagnoses and all orders for this visit: Vitamin D deficiency - Vitamin D 25-Hydroxy,Total (for eval of Vitamin D levels); Future Chronic atrial fibrillation (Multi) - Follow Up In Primary Care - Established Diabetes 1.5, managed as type 2 (Multi) - Hemoglobin A1C; Future - Comprehensive metabolic panel; Future - Magnesium; Future - dulaglutide (Trulicity) 1.5 mg/0.5 mL pen injector injection; Inject 1.5 mg under the skin 1 (one) time per week. 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 Referring Provider: Marleen Sigala APRN-CN* PHARMACY ASSESSMENT Allergies Reviewed? Yes Home Pharmacy Reviewed? Yes, describe: fills w/ mail order, [facility] Affordability/Accessibility: cost is a barrier, patient will be screened for [facility] PAP, wheelchair bound and has trouble w/ transportation, patient's son helps pick and shovel worker medications if needed, son lives with her Adherence/Organization: patient reports taking daily and no missed doses; however, reports taking medication daily in the AM sometimes without food Adverse Effects: denies side effects, notes some bruising but they heal reasonably MEDICATION RECONCILIATION Added: - multivitamin gummies - equate/generic brand, takes per package instructions (1-2) once daily Changed: - none Removed: - Cephalexin - therapy completed, patient reports cellulitis last month resulting in hematoma, completed therapy and reports cellulitis - Lorazepam - reports working with PCP to wean off of Lorazepam, reports has not been taking and feels she does not DRUG INTERACTIONS - None warranting change in therapy at this time RELEVANT LAB RESULTS Lab Results Component Value Date BILITOT 0.3 05/21/2023 CALCIUM 9.2 05/21/2023 CO2 30 05/21/2023 CL 100 05/21/2023 CREATININE 1.00 05/21/2023 GLUCOSE 119 (H) 05/21/2023 ALKPHOS 140 (H) 05/21/2023 ALKPHOS 158 (H) 05/21/2023 K 4.4 05/21/2023 PROT 6.4 05/21/2023 NA 138 05/21/2023 AST 16 05/21/2023 ALT 8 05/21/2023 BUN 15 05/21/2023 ANIONGAP 12 05/21/2023 MG 1.30 (L) 03/06/2023 PHOS 3.3 10/20/2020 ALBUMIN 3.6 05/21/2023 GFRF 58 (A) 10/24/2022 Lab Results Component Value Date TRIG 111 03/06/2023 CHOL 125 03/06/2023 LDLCALC 48 03/06/2023 HDL 55.0 03/06/2023 No results found for: BMCBC, CBCDIF ANTICOAGULATION ASSESSMENT RISK: 10-Year ASCVD Risk Score Appropriate? Yes - most recent LDL - 48 mg/dL (03/06/23) The ASCVD Risk score (Hardy SY, et al., 2019) failed to calculate for the following reasons: The valid total cholesterol range is 130 to 320 mg/dL [id number] Score Appropriate? Yes - dx of afib [id number] Score: 5 Age > 75 (+2) Sex Female (+1) CHF hx No (+0) Hypertension hx Yes (+1) Stroke/TIA/thromboembolism hx No (+0) Vascular disease hx (prior [facility], peripheral artery disease, aortic plaque) No (+0) Diabetes hx Yes (+1) DIAGNOSIS: Indication: prevention of nonvalvular atrial fibrilliation stroke and systemic embolism Duration: Patient is projected to be on anticoagulation indefinitely (risk vs benefit) CURRENT PHARMACOTHERAPY: - Xarelto 20 mg - one tablet (20 mg) daily Dose Evaluation: appropriate SCr (mg/dL) - 0.83 CrCl (calculated w/ IBW) - 54 mg/dL Weight (kg) - 112 kg Age (years) - 77 REVIEW OF PHARMACOTHERAPY/MEDICAL HISTORY - Afib/Primary Prevention of stroke, thromboembolism: - On anticoagulation: Xarelto 20 mg once daily - Evaluation of current treatment regimen: while labeling for Xarelto states preference for alternatives > Xarelto, use is reasonable based on patient specific factors. - Xarelto vs. Warfarin: Patient is wheelchair bound and has limited transportation and frequent monitoring with warfarin would be prohibitive - Xarelto vs. Eliquis: Limited mobility is a possible barrier to adherence, once daily regimen preferred Safety: patient reports no concerning side effects regarding Xarelto treatment, has taken for years PERTINENT MEDICAL HISTORY: - Medical history: Afib - Social history: denies nicotine or alcohol use - Medication history: denies any other medications taken for anticoagulation PATIENT EDUCATION/GOALS - Counseled patient on MOA, expectations, duration of therapy, contraindications, administration, and monitoring parameters - Counseled patient of side effects that are indicative of bleeding such as dark tarry stool, unexplainable bruising, or vomiting up a coffee ground like substance - Answered all patient questions and concerns - Discussed [facility] PAP and benefits to patient if needed in future - Counseled patient to take Xarelto with food RECOMMENDATIONS/PLAN Anticoagulation - continue current treatment regimen.. Xarelto 20 mg daily Affordability/Accessibility - Screen for [employer] Patient Assistance Program (PAP). Patient is expected to be eligible for this program. Patient declines screening for [facility] PAP at this time. Patient reports new prescription insurance coverage with monthly to 90 day copay of $11 and reports as affordable. Follow Up Next Cardiology Appointment: 07/18/2024 Clinical Pharmacist follow up: PRN Patient offered follow up and declines at this time. Reports no issues with current anticoagulationtherapy or affordability. Counseled patient to return to [facility] Clinical Pharmacy Team if the need arises in the future. DOMINIQUE SHAH PharmD Verbal consent to manage patient's drug therapy was obtained from the patient . They were informed they may decline to participate or withdraw from participation in pharmacy services at any time. Continue all meds under the continuation of care with the referring provider and clinical pharmacy team. documented in this [facility] Work Phone: [phone]) 851-283704-12-2024 History of Present illness Narrative* Marleen Sigala, [employer]OCI[employer], DNP - 07/20/2023 2:30 PM EDT Images from the original note were not included. CHIEF COMPLAINT Follow up HISTORY OF PRESENT ILLNESS An interactive audio and video telecommunication system which permits real time communications between the patient (at the originating site) and provider (at the distant site) was utilized to providethis telehealth service. Verbal consent was requested and obtained from Daryn Shah on this date Cardiovascular hx: Atrial fibrillation, persistent: -[id number] Score of 5; currently on Xarelto 20mg; no overt bleeding -Rate controlled with atenolol 100mg daily Cardiac testing: Echo (September,)-LVSF is normal with a 55% EF; severely dilated left atrium; mild Past Medical History Past Medical History: Diagnosis Date Cellulitis of unspecified part of limb 10/30/2019 Cellulitis, leg Personal history of diseases of the skin and subcutaneous tissue 08/25/2019 History of dermatitis Personal history of other diseases of the circulatory system 02/05/2019 History of irregular heartbeat Personal history of other diseases of the respiratory system 04/11/2021 History of acute sinusitis Personal history of other diseases of the respiratory system 07/08/2020 History of acute bronchitis Personal history of other diseases of the respiratory system 07/08/2020 History of upper respiratory infection 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 Social History Social History Tobacco Use Smoking status: Never Smokeless tobacco: Never Substance Use Topics Alcohol use: Never Drug use: Never Family History Family History Problem Relation Name Age of Onset Cancer Mother Alzheimer's disease Mother Other (cardiac disorder) Mother Breast cancer Mother Cystic fibrosis Brother Diabetes Other Allergies: No Known Allergies Outpatient Medications: Current Outpatient Medications Medication Instructions atenolol (TENORMIN) 100 mg, oral, Daily cephalexin (KEFLEX) 250 mg, oral, 4 times daily cholecalciferol (VITAMIN D-3) 2,000 Units, oral, Daily cinnamon 500 mg capsule oral, 2 times daily diclofenac sodium (VOLTAREN) 2 g, Topical, 4 times daily ferrous gluconate 324 (38 Fe) mg tablet 38 mg of iron, oral, Daily with breakfast hydrocortisone (ANUSOL-HC) 25 mg, rectal, 2 times daily PRN lisinopril 5 mg, oral, Daily LORazepam (ATIVAN) 0.5 mg, oral, Nightly magnesium oxide (MAG-OX) 200 mg, oral, Daily potassium chloride ER (Micro-K) 10 mEq ER capsule 10 mEq, oral, Daily rivaroxaban (XARELTO) 20 mg, oral, Daily rosuvastatin (CRESTOR) 10 mg, oral, Daily triamterene-hydrochlorothiazid (Maxzide-25) 37.5-25 mg tablet 1 tablet, oral, Daily Trulicity 0.75 mg, subcutaneous, Once Weekly venlafaxine XR (EFFEXOR-XR) 75 mg, oral, Daily Labs: CMP: Recent Labs 05/21/23 1533 03/06/23 1118 10/24/22 1200 09/14/22 0454 09/13/22 0554 09/11/22 0430 09/10/22 0508 09/09/22 0454 09/08/22 1256 06/01/22 1138 03/01/22 1158 NA 138 139 136 133* 134* < > 131* 131* < > 135* 136 K 4.4 4.3 5.0 3.6 3.6 < > 3.6 3.4* < > 4.7 4.0 CL 100 103 102 96* 96* < > 97* 95* < > 98 100 CO2 30 28 27 31 30 < > 28 28 < > 29 29 ANIONGAP 12 12 12 10 12 < > 10 11 < > 13 11 BUN 15 22 21 13 13 < > 17 20 < > 24* 20 CREATININE 1.00 0.83 1.01 0.96 0.88 < > 0.82 1.00 < > 0.86 0.83 EGFR 59* 74 -- -- -- -- -- -- -- -- -- MG -- 1.30* -- -- -- -- 1.80 1.40* -- 1.62 1.50* < > = values in this interval not displayed. Recent Labs 05/21/23 1533 03/06/23 1118 10/24/22 1200 09/11/22 0430 09/09/22 0454 ALBUMIN 3.6 3.8 3.3* 3.1* 3.4 ALKPHOS 158* 140* 141* 87 89 91 ALT 8 9 7 6* 7 AST 16 16 13 10 15 BILITOT 0.3 0.3 0.4 0.4 0.4 CBC: Recent Labs 05/21/23 1533 03/06/238 10/24/22 1200 09/14/22 0454 09/13/22 0554 WBC 10.2 12.2* 10.9 11.6* 11.7* HGB 11.0* 9.3* 11.2* 8.1* 8.1* HCT 36.6 32.6* 38.7 28.4* 28.3* PLT 261 310 324 310 290 MCV 83 77* 77* 71* 70* COAG: Recent Labs 09/10/22 0508 09/08/22 1302 INR 1.4* 5.4* ABO: No results for input(s): ABO in the last 72144 hours. HEME/ENDO: Recent Labs 05/21/23 1533 03/06/23 1118 09/09/22 0454 06/01/22 1138 03/01/22 1158 10/30/19 1029 02/05/19 1205 FERRITIN 34 -- 47 -- -- -- -- IRONSAT 28 -- NOT CALC. -- -- -- -- TSH -- -- -- -- -- -- 3.72 HGBA1C -- 7.2* 7.6* 8.0* 7.1* < > 6.2 < > = values in this interval not displayed. CARDIAC: Recent Labs 09/09/22 0454 TROPHS 14* BNP 296* Recent Labs 03/06/23 1118 09/09/22 0454 03/01/22 1158 09/14/21 1455 06/07/21 1427 CHOL 125 108 132 < > 193 LDLF -- 47 64 -- 108* HDL 55.0 39.0* 45.0 -- 45.0 TRIG 111 108 115 < > 198* < > = values in this interval not displayed. MICRO: Recent Labs 09/09/22 0454 CRP 29.42* No results found for the last 90 days. Notable Studies: imaging personally reviewed EKG:No results found for this or any previous visit (from the past 4464 hour(s)). Echocardiogram: [place] [address] [phone], TRANSTHORACIC ECHOCARDIOGRAM REPORT Patient Name: DARYN Maria Luisa SHAH Reading Physician: [id number] Norman Valdivia MD Study Date: 09/11/2022 Referring ANGELIQUE CLARKE Physician: MRN/PID: [id number] PCP: Accession/Order#: [id number] Department [address] Location: Date of : 1945 Fellow: Gender: F Nurse: Admit Date: 09/08/2022 Rn Transitional: Asia Miles RVT [facility] Admission Status: Inpatient - Additional Staff: Routine Height: 167.00 cm CC Report to: Weight: 116.00 kg Study Type: Echocardiogram BSA: 2.21 m2 Blood Pressure: 111 /70 mmHg Diagnosis/ICD: I48.0-Paroxysmal atrial fibrillation Indication: AFib Procedure/CPT: Echo Complete w Full [id number] Patient History: Pertinent History: Previous echo 02-14-2019. Study Detail: The following Echo studies were performed: 2D, M-Mode, Doppler and color flow. Definity used as a contrast agent for endocardial border definition. Total contrast used for this procedure was 1 mL via IV push. A bubble study was not performed. The patient was awake. PHYSICIAN INTERPRETATION: Left Ventricle: Left ventricular systolic function is normal, with an estimated ejection fraction of 55%. There are no regional wall motion abnormalities. The left ventricular cavity size is normal. Left ventricular diastolic filling was indeterminate. Left Atrium: The left atrium is severely dilated. Right Ventricle: The right ventricle is normal in size. There is normal right ventricular global systolic function. Right Atrium: The right atrium is mildly dilated. Aortic Valve: The aortic valve is probably trileaflet. There is no evidence of aortic valve regurgitation. The peak instantaneous gradient of the aortic valve is 23.2 mmHg. The mean gradient of the aortic valve is 12.0 mmHg. Mean transaortic gradient 14 mmHg, peak velocity 2.4 m/s, dimensionless index 0.39, calculated aortic valve area 1.1 cm . Mitral Valve: The mitral valve is abnormal. There is trace mitral valve regurgitation. Calcified mitral annulus and leaflets. Tricuspid Valve: The tricuspid valve is structurally normal. There is trace tricuspid regurgitation. Pulmonic Valve: The pulmonic valve is not well visualized. The pulmonic valve regurgitation was notwell visualized. Pericardium: There is no pericardial effusion noted. Aorta: The aortic root is normal. Systemic Veins: The inferior vena cava appears to be of normal size. There is IVC inspiratory collapse greater than 50%. CONCLUSIONS: 1. Left ventricular systolic function is normal with a 55% estimated ejection fraction. 2. The left atrium is severely dilated. 3. Findings appear consistent with mild aortic stenosis. QUANTITATIVE DATA SUMMARY: 2D MEASUREMENTS: Normal Ranges: Ao Root d: 2.80 cm (2.0-3.7cm) LAs: 4.30 cm (2.7-4.0cm) IVSd: 1.00 cm (0.6-1.1cm) LVPWd: 1.26 cm (0.6-1.1cm) LVIDd: 4.85 cm (3.9-5.9cm) LVIDs: 3.25 cm LV Mass Index: 92.5 g/m2 LV % FS 33.0 % LA VOLUME: Normal Ranges: LA Vol A4C: 87.5 ml (22+/-6mL/m2) LA Vol A2C: 106.4 ml LA Vol BP: 104.8 ml LA Vol Index A4C: 39.5ml/m2 LA Vol Index A2C: 48.0 ml/m2 LA Vol Index BP: 47.3 ml/m2 LA Area A4C: 26.4 cm2 LA Area A2C: 26.8 cm2 LA Major Critz A4C: 6.8 cm LA Major Critz A2C: 5.7 cm LA Volume Index: 44.3 ml/m2 LA Vol A4C: 83.9 ml LA Vol A2C: 98.0 ml M-MODE MEASUREMENTS: Normal Ranges: AoV Exc: 1.10 cm (1.5-2.5cm) AORTA MEASUREMENTS: Normal Ranges: AoV Exc: 1.10 cm (1.5-2.5cm) LV SYSTOLIC FUNCTION BY 2D PLANIMETRY (MOD): Normal Ranges: EF-A4C View: 53.8 % (>=55%) EF-A2C View: 69.3 % EF-Biplane: 62.3 % LV DIASTOLIC FUNCTION: Normal Ranges: MV Peak E: 1.10 m/s (0.7-1.2 m/s) MITRAL VALVE: Normal Ranges: MV DT: 194 msec (150-240msec) MITRAL INSUFFICIENCY: Normal Ranges: MR Vmax: 315.00 cm/s AORTIC VALVE: Normal Ranges: AoV Vmax: 2.41 m/s (<=1.7m/s) AoV Peak P.2 mmHg (<20mmHg) AoV Mean P.0 mmHg (1.7-11.5mmHg) LVOT Max Filemon: 0.93 m/s (<=1.1m/s) AoV VTI: 59.20 cm (18-25cm) LVOT VTI: 20.30 cm LVOT Diameter: 2.00 cm (1.8-2.4cm) AoV Area, VTI: 1.08 cm2 (2.5-5.5cm2) AoV Area,Vmax: 1.21 cm2 (2.5-4.5cm2) AoV Dimensionless Index: 0.34 RIGHT VENTRICLE: RV 1 3.37 cm RV 2 2.34 cm RV 3 6.44 cm TAPSE: 12.4 mm TRICUSPID VALVE/RVSP: Normal Ranges: Peak TR Velocity: 2.90 m/s RV Syst Pressure: 36.6 mmHg (< 30mmHg) PULMONIC VALVE: Normal Ranges: PV Accel Time: 56 msec (>120ms) PV Max Filemon: 1.1 m/s (0.6-0.9m/s) PV Max P.5 mmHg [id number] Norman Valdivia MD Electronically signed on 09/11/2022 at 11:54:26 AM Stress Testing: No results found for this or any previous visit from the past 1824. Cardiac Catheterization: No results found for this or any previous visit from the past 1825 days. No results found for this or any previous visit from the past 3650 days. REVIEW OF SYSTEMS A 10-point system review was completed and was negative except as noted in the HPI. VITALS Unavailable due to telephone call PHYSICAL EXAM Physical exam deferred due to limitations (audio only) of virtual visit platform. ASSESSMENT AND PLAN Assessment/Plan Diagnoses and all orders for this visit: Persistent atrial fibrillation (Multi) - Stable; continue atenolol 100 mg daily -[id number] Score of 5; currently on Xarelto 20mg; no overt bleeding - Patient does struggle with cost of DOAC when it gets to her donut hole with insurance; will placereferral to clinical pharmacy This telehealth visit is a real time audio/visual communication. During the scheduling process, this patient has verbally consented to the submission of Telehealth visits and the patient is aware of the risks, benefits, and possible coinsurance/copay costs. This visit is being conducted by real time telephone visit. Total time (including chart review, documentation and discussion with patient) to complete visit: 20 minutes RTC: 1 year Thank you for allowing me to participate in the care of this patient. Please reach me out if you have any questions or if you need any clarifications regarding the patient's care. Marleen Sigala DNP, MAYCO, [employer] Division of Cardiovascular Medicine [facility] documented in this [facility] Work Phone: [phone] 509-836503-26-2024 History of Present illness Narrative* Huan Mcdaniel MD - 07/03/2023 1:00 PM EDT Subjective Patient ID: Daryn Shah is a 77 y.o. female who presents for Follow-up (ER for right foot contusion). Virtual or Telephone Consent An interactive audio and video telecommunication system which permits real time communications between the patient (at the originating site) and provider (at the distant site) was utilized to providethis telehealth service. Verbal consent was requested and obtained from Daryn Shah on this date, 07/03/23 for a telehealth visit. HPI She knocked a can of noodle soup off of the counter and landed on her right foot. Really puffy and painful later that day. She is on Xarelto That was on June 09 so it has been 3+ weeks. Does not hurt now but did for a few days. Could not tolerate ice. Kept elevated. Toes doing OK, not numb or blue. Whole foot feels stiff. Still has a lump. No open sores. Can move toes and able to put weight on it Also trying to wean off of Lorazepam. She is currently on 1/2 of 0.5 every other day so will stop by the weekend. She has about 6 doses left. So will keep a few around to help the final push Objective There were no vitals taken for this visit. Physical Exam Virtual visit so only able to visualize. Top of right foot with hematoma that is walnut sized and toes look good Able to wiggle toes. Good color except for some central ecchymosis Good Mood and affect and judgment and insight Assessment/Plan Diagnoses and all orders for this visit: Hematoma of right foot Anxiety Reassured regarding the foot that it is progressing normally. Encouraged to continue to go off of the lorazepam. Good job with that documented in this [facility] Work Phone: 1(291) 485-161303-03-2024 Emergency department Note* Flavio Miles, DO - 06/10/2023 5:40 PM EST HPI Chief Complaint Patient presents with Foot Injury Dropped a soup can onto her right foot. +swelling. Able to move toes. Patient presents to the emergency department secondary to a right foot injury. Patient states that at 630 this morning she had a can of soup roll off of a kitchen counter striking the dorsal aspect of her right foot. The patient is not ambulatory at baseline and has a motorized wheelchair to get around her home. She does take Xarelto. She states that over the course of the day the area has becomemore swollen and painful. She arrives by squad now to be further evaluated. History provided by: Patient geography instructor used: No Yahaira Coma Scale Score: 15 Patient History Past Medical History: Diagnosis Date Cellulitis of unspecified part of limb 10/30/2019 Cellulitis, leg Personal history of diseases of the skin and subcutaneous tissue 08/25/2019 History of dermatitis Personal history of other diseases of the circulatory system 02/05/2019 History of irregular heartbeat Personal history of other diseases of the respiratory system 04/11/2021 History of acute sinusitis Personal history of other diseases of the respiratory system 07/08/2020 History of acute bronchitis Personal history of other diseases of the respiratory system 07/08/2020 History of upper respiratory infection 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 Past Surgical History: Procedure Laterality Date OTHER SURGICAL HISTORY 01/03/2019 section OTHER SURGICAL HISTORY 02/11/2019 Cholecystectomy OTHER SURGICAL HISTORY 02/11/2019 Tubal ligation OTHER SURGICAL HISTORY 02/11/2019 Dilation and curettage OTHER SURGICAL HISTORY 09/22/2011 Colonoscopy Family History Problem Relation Name Age of Onset Cancer Mother Alzheimer's disease Mother Other (cardiac disorder) Mother Breast cancer Mother Cystic fibrosis Brother Diabetes Other Social History Tobacco Use Smoking status: Never Smokeless tobacco: Never Substance Use Topics Alcohol use: Never Drug use: Never Physical Exam ED Triage Vitals [06/10/23 1741] Temperature Heart Rate Respirations BP 36.6 C (97.8 F) 82 18 (!) 147/91 Pulse Ox Temp Source Heart Rate Source Patient Position (!) 93 % Temporal -- -- BP Location FiO2 (%) -- -- Physical Exam Vitals and nursing note reviewed. Constitutional: General: She is not in acute distress. Appearance: Normal appearance. She is obese. She is not ill-appearing, toxic- appearing or diaphoretic. Comments: Resting comfortably. Not toxic in any way. HENT: Head: Normocephalic and atraumatic. Nose: Nose normal. No rhinorrhea. Neck: Comments: Trachea is midline Cardiovascular: Rate and Rhythm: Normal rate and regular rhythm. Heart sounds: No murmur heard. Pulmonary: Effort: Pulmonary effort is normal. Breath sounds: Normal breath sounds. No wheezing. Abdominal: General: Abdomen is flat. Bowel sounds are normal. There is no distension. Palpations: Abdomen is soft. Tenderness: There is no abdominal tenderness. Musculoskeletal: General: Normal range of motion. Cervical back: Normal range of motion. Skin: General: Skin is warm and dry. Findings: Lesion present. No rash. Comments: Patient has a 5 cm circumferential hematoma over the central dorsal aspect of the right foot. Neurological: General: No focal deficit present. Mental Status: She is alert and oriented to person, place, and time. Mental status is at baseline. Psychiatric: Mood and Affect: Mood normal. Behavior: Behavior normal. Thought Content: Thought content normal. Judgment: Judgment normal. ED Course & MDM Diagnoses as of 06/10/231850 Contusion of right foot, initial encounter Hematoma of right foot Medical Decision Making X-ray shows no evidence of acute fracture. In regards to the hematoma I feel this can be treated conservatively with ice application and keeping the affected extremity elevated. The patient was instructed to remain on her Xarelto. Patient will be given a short prescription for tramadol as needed instructed to follow- up with her private physician. Return at anytime if worse. Procedure Procedures Flavio Miles DO 06/10/231850 [facility]: 1(371) 602-444803-03-2024 Physician Emergency department Note* Flavio Miles DO - 06/10/2023 5:40 PM EST HPI Chief Complaint Patient presents with Foot Injury Dropped a soup can onto her right foot. +swelling. Able to move toes. Patient presents to the emergency department secondary to a right foot injury. Patient states that at 630 this morning she had a can of soup roll off of a kitchen counter striking the dorsal aspect of her right foot. The patient is not ambulatory at baseline and has a motorized wheelchair to get around her home. She does take Xarelto. She states that over the course of the day the area has becomemore swollen and painful. She arrives by squad now to be further evaluated. History provided by: Patient geography instructor used: No Yahaira Coma Scale Score: 15 Patient History Past Medical History: Diagnosis Date Cellulitis of unspecified part of limb 10/30/2019 Cellulitis, leg Personal history of diseases of the skin and subcutaneous tissue 08/25/2019 History of dermatitis Personal history of other diseases of the circulatory system 02/05/2019 History of irregular heartbeat Personal history of other diseases of the respiratory system 04/11/2021 History of acute sinusitis Personal history of other diseases of the respiratory system 07/08/2020 History of acute bronchitis Personal history of other diseases of the respiratory system 07/08/2020 History of upper respiratory infection 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 Past Surgical History: Procedure Laterality Date OTHER SURGICAL HISTORY 01/03/2019 section OTHER SURGICAL HISTORY 02/11/2019 Cholecystectomy OTHER SURGICAL HISTORY 02/11/2019 Tubal ligation OTHER SURGICAL HISTORY 02/11/2019 Dilation and curettage OTHER SURGICAL HISTORY 09/22/2011 Colonoscopy Family History Problem Relation Name Age of Onset Cancer Mother Alzheimer's disease Mother Other (cardiac disorder) Mother Breast cancer Mother Cystic fibrosis Brother Diabetes Other Social History Tobacco Use Smoking status: Never Smokeless tobacco: Never Substance Use Topics Alcohol use: Never Drug use: Never Physical Exam ED Triage Vitals [06/10/23 1741] Temperature Heart Rate Respirations BP 36.6 C (97.8 F) 82 18 (!) 147/91 Pulse Ox Temp Source Heart Rate Source Patient Position (!) 93 % Temporal -- -- BP Location FiO2 (%) -- -- Physical Exam Vitals and nursing note reviewed. Constitutional: General: She is not in acute distress. Appearance: Normal appearance. She is obese. She is not ill-appearing, toxic- appearing or diaphoretic. Comments: Resting comfortably. Not toxic in any way. HENT: Head: Normocephalic and atraumatic. Nose: Nose normal. No rhinorrhea. Neck: Comments: Trachea is midline Cardiovascular: Rate and Rhythm: Normal rate and regular rhythm. Heart sounds: No murmur heard. Pulmonary: Effort: Pulmonary effort is normal. Breath sounds: Normal breath sounds. No wheezing. Abdominal: General: Abdomen is flat. Bowel sounds are normal. There is no distension. Palpations: Abdomen is soft. Tenderness: There is no abdominal tenderness. Musculoskeletal: General: Normal range of motion. Cervical back: Normal range of motion. Skin: General: Skin is warm and dry. Findings: Lesion present. No rash. Comments: Patient has a 5 cm circumferential hematoma over the central dorsal aspect of the right foot. Neurological: General: No focal deficit present. Mental Status: She is alert and oriented to person, place, and time. Mental status is at baseline. Psychiatric: Mood and Affect: Mood normal. Behavior: Behavior normal. Thought Content: Thought content normal. Judgment: Judgment normal. ED Course & MDM Diagnoses as of 06/10/231850 Contusion of right foot, initial encounter Hematoma of right foot Medical Decision Making X-ray shows no evidence of acute fracture. In regards to the hematoma I feel this can be treated conservatively with ice application and keeping the affected extremity elevated. The patient was instructed to remain on her Xarelto. Patient will be given a short prescription for tramadol as needed instructed to follow- up with her private physician. Return at anytime if worse. Procedure Procedures Flavio Miles DO 06/10/231850 [facility] Work Phone: 1(779) 873-555601-12-2024 History of Present illness Narrative* Huan Mcdaniel MD - 04/20/2023 2:30 PM EST Subjective Patient ID: Daryn Shah is a 77 y.o. female who presents for Follow-up. Virtual or Telephone Consent A telephone visit (audio only) between the patient (at the originating site) and the provider (at the distant site) was utilized to provide this telehealth service. Verbal consent was requested and obtained from Daryn Shah on this date, 04/20/23 for a telehealth visit. HPI She is not able to come in as she has no adequate transportation for her electric wheelchair. She is able to move from chair to bed. . She is on lorazepam and needs to get in for the CSA and UDS. Discussed going with Palliative care for her like she has had in the past. Diabetes - went off of metformin and feels better. More energy. Trulicity has been tolerated. Sugars have been running mid 100s in AM. A1C is 7.2 in February. 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 Depression and Anxiety - She is trying to choose to be happy as she cannot change her life situation. Got a letter about concern with suicidal ideation with Effexor. Will discuss with palliative care. She is on Ativan mainly to shut thoughts down and will above. Will have her try to wean off of that. So will drop to 0.5 mg. And can hold off of palliative care since that is the main reason for the referral. Can take Benadryl Venous stasis ulcer small on right leg due to scratching. Not red or hot A fib No Chest pain, Dyspnea, palpitations, numbness, weakness, claudications, or double vision/ loss of vision. Xarelto. 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 Review of Systems Objective There were no vitals taken for this visit. Physical Exam Phone visit. Good vocalization and mood and judgment. 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 Venous stasis ulcer with varicose veins of lower extremity (CMS/HCC) Chronic atrial fibrillation (CMS/HCC) Depression, major, single episode, moderate (CMS/HCC) Morbid obesity with BMI of 40.0-44.9, adult (CMS/HCC) 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, without long-term current use of insulin (CMS/HCC) documented in this [facility] Work Phone: 1(591) 121-949112-05-2023 History of Present illness Narrative* Huan Mcdaniel MD - 03/13/2023 1:30 PM EST Subjective Patient ID: Daryn Shah is a 77 y.o. female who presents for Med Management (Increased depression). Virtual or Telephone Consent An interactive audio and video telecommunication system which permits real time communications between the patient (at the originating site) and provider (at the distant site) was utilized to providethis telehealth service. Verbal consent was requested and obtained from Daryn Shah on this date, 03/13/23 for a telehealth visit. [facility] No longer has [facility]. 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 She was all ready to go today. Could not use wheelchair van. That should be better nexttime. Glaucoma and cataracts - noted to have high pressure but not able to get back to treat. Has been referred to [facility] for a cataract and this in April Asthma - has been good on no meds. Cough seem related to stress as well. Atrial Fibrillation - not noted. Has had phone visit with Dr Valdivia in May annually. No chestpain or palpitations. Benign essential hypertension I - Med works well without side effects. Home blood pressure good. NoChest pain, Dyspnea, orthopnea, palpitations, numbness, weakness, claudication, or double vision/ loss of vision. Edema is better with the hospital bed. Has secondary changes of skin. Does have some vertigo when rolling around to left to get pull-ups on. OK when up. Depressive disorder - has been rough as her and does not know how to manage all of thethings. She is no longer with palliative care. 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 Activity- she gets in Wheelchair without the board. Biggest issue is her son. She does well when he is not there. She is learning to let him make his own choices but cannot complain about consequences. PHQ-9 score 18 last spring and 14 this time. Does still struggle with holidays Diabetes - has been mid 100s in AM when she checks. A1C 7.2% in this time. She is on metformin bid.Tingling and cramps in fingers and toes. Magnesium is low so will get back on that. No sores on feet or buttocks. Has a hospital bed that really helps. Eyes are dry. Interested in starting LP-1 to lose weight and control the BS. Will Try Trulicity. Diarrhea with mushy stools. Not frequent Knees with arthritis pain when trying to walk. Cannot stand without help. Doing her exercises. Lessafraid to stand but not ready to walk as she would fall. Wakes at hs at times. Still cannot get into shower and bathroom so washes at bedside and uses bedpan. Goes to [facility] and slide over. Has a walkerbut uses a wheelchair Hyperlipidemia - with DM treating this with Irene. Good last spring Iron deficiency anemia. She is to be on iron but forgot and will get back on that. Lymphedema of leg - exercises have really helped to get this down. She has not been needing the compression wraps. Feels like she has shoes on when she does not. . 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 On nova with her edema as well. Not red. Worse with holidays. Obesity, unspecified - not active but eating less. No recent weights. Stopped her dietary supplement Personal history of colonic polyps - not ready for scope yet. Cologuard negative. Vitamin D deficiency - Taking supplement and level was 27 last year. Magnesium 1.3 this time. Back on both. Mammogram 02/14/19 scheduled and will check if in wheelchair. Will wait till next visit and better weather Colonoscopy 2002. Cologuard November 05, 2020 UDS 02/04/21 marijuana in UDS. Informed she must stop that as not safe with the lorazepam. I will check again in the near future. 06/09/21 she says it was a Gummi with CBD. 09/14/21 no Cannabinoids CSA 02/04/21 I have personally reviewed the patients OARRS report. This report is filed in the EHR. I have considered the risks of abuse, addiction and diversion. I believe it is clinically appropriate to continue to prescribe this medication. Additional Information: Surrogates: [place]. Review of Systems Objective There were no vitals taken for this visit. Physical Exam Video call. No distress. Good color. Good mood and affect and thought process. Assessment/Plan Diagnoses and all orders for this visit: Morbid obesity with BMI of 40.0-44.9, adult ([facility]) Diabetes 1.5, managed as type 2 ([facility]) - metFORMIN (Glucophage) 500 mg tablet; Take 1 tablet (500 mg) by mouth 2 times a day. - dulaglutide (Trulicity) 0.75 mg/0.5 mL pen injector; Inject 0.75 mg under the skin 1 (one) time per week. - Follow Up In Primary Care - Established; Future Anxiety - venlafaxine XR (Effexor-XR) 75 mg 24 hr capsule; Take 1 capsule (75 mg) by mouth once daily. Benign essential hypertension - atenolol (Tenormin) 100 mg tablet; Take 1 tablet (100 mg) by mouth once daily. - lisinopril 5 mg tablet; Take 1 tablet (5 mg) by mouth once daily. - triamterene-hydrochlorothiazid (Maxzide-25) 37.5-25 mg tablet; Take 1 tablet by mouth once daily. Hyperlipidemia, unspecified hyperlipidemia type - rosuvastatin (Crestor) 10 mg tablet; Take 1 tablet (10 mg) by mouth once daily. Hypokalemia - potassium chloride ER (Micro-K) 10 mEq ER capsule; Take 1 capsule (10 mEq) by mouth once daily. Hypomagnesemia Iron deficiency anemia secondary to inadequate dietary iron intake Vitamin D deficiency Age-related incipient cataract of both eyes documented in this [facility] Work Phone: [phone]) [phone] History of Present illness Narrative* Huan Mcdaniel MD - 12/12/2022 1:00 PM EDT Subjective Patient ID: Daryn Shah is a 76 y.o. female who presents for Med Management (Itching in regine area). HPI No longer has [facility]. She is not able to get in here this time. Was waiting on the certificate from . Could not use wheelchair van. That should be better next time. Glaucoma - noted to have high pressure but not able to get back to treat. Will soon. Asthma - has been good on no meds. Cough seem related to stress as well. Atrial Fibrillation - not noted. Has had phone visit with Dr Valdivia in May. No chest pain or palpitations. Benign essential hypertension I - Med works well without side effects. Home blood pressure good. NoChest pain, Dyspnea, orthopnea, palpitations, numbness, weakn ss, claudication, or double vision/ loss of vision. Edema is better with the hospital bed. Has secondary changes of skin. Does have some vertigo when rolling around to left to get pull-ups on. OK when up. Depressive disorder - has been rough as her and does not know how to manage all of thethings. She is no longer with palliative care. 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 Activity- she gets in Wheelchair without the board. Biggest issue is her son. She does well when he is not there. She is learning to let him make his own choices but cannot complain about consequences. PHQ-9 score 18 last time. Diabetes - has been mid 100s in AM when she checks. A1C 7.6% in October. Says in the past was on bid Metformin but then on daily and off. She is now off glimepiride. BS usually in low to mid 100s. And back on metformin bid. Tingling and cramps in fingers and toes. Magnesium is low so will get back on that. No sores on feet or buttocks. Has a hospital bed that really helps. Eyes are dry Diarrhea with mushy stools. Not frequent Knees with arthritis pain when trying to walk. Cannot stand without help. Doing her exercises. Lessafraid to stand but not ready to walk as she would fall. Wakes at hs at times. Still cannot get into shower and bathroom so washes at bedside and uses bedpan. Plans to go to [facility] and slide over. Has awalker but uses a wheelchair Hyperlipidemia - with DM treating this with Irene. Good last time Lymphedema of leg - exercises have really helped to get this down. She has not been needing the compression wraps. Feels like she has shoes on when she does not. . 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 On nova with her edema as well. Not red. Feels doing better Obesity, unspecified - not active but eating less. No recent weights. Stopped her dietary supplement Personal history of colonic polyps - not ready for scope yet. Cologuard negative. Vitamin D deficiency - Taking supplement and level was 27 last time. Magnesium was 1.5. Back on both. Mammogram 02/14/19 scheduled and will check if in wheelchair. Will wait till next visit and better weather Colonoscopy 2002. Cologuard November 05, 2020 UDS 02/04/21 marijuana in UDS. Informed she must stop that as not safe with the lorazepam. I will check again in the near future. 06/09/21 she says it was a Gummi with CBD. 09/14/21 no Cannabinoids CSA 02/04/21 I have personally reviewed the patients OARRS report. This report is filed in the EHR. I have considered the risks of abuse, addiction and diversion. I believe it is clinically appropriate to continue to prescribe this medication. She has had some early fills so will date this one and talked to herabout it Additional Information: Surrogates: [place]. Review of Systems Objective There were no vitals taken for this visit. Physical Exam Constitutional: Appearance: Normal appearance. She is obese. Pulmonary: Effort: Pulmonary effort is normal. No respiratory distress. Skin: Coloration: Skin is not pale. Neurological: Mental Status: She is alert and oriented to person, place, and time. Psychiatric: Mood and Affect: Mood normal. Thought Content: Thought content normal. Judgment: Judgment normal. Assessment/Plan Problem List Items Addressed This Visit Anxiety - Primary Asthma Atrial fibrillation ([facility]/HCC) Benign essential hypertension Depression, major, single episode, moderate ([facility]) Diabetes mellitus type 2, controlled ([facility]) Diarrhea Generalized muscle weakness Hyperlipidemia Lumbar facet arthropathy Lymphedema of leg Morbid obesity with BMI of 40.0-44.9, adult ([facility]) Neurodermatitis Personal history of colonic polyps Primary osteoarthritis of both knees Vitamin D deficiency documented in this [facility] Work Phone: [phone]) [phone] History of Present illness Narrative* Huan Mcdaniel MD - 10/13/2022 2:00 PM EDT Subjective Patient ID: Daryn Shah is a 76 y.o. female who presents for Follow-up (Was in hospital for uti, developed C. Diff and was at [facility] [place]./Discuss ordering labs). Virtual or Telephone Consent A telephone visit (audio only) between the patient (at the originating site) and the provider (at the distant site) was utilized to provide this telehealth service. Verbal consent was requested and obtained from Daryn Shah on this date, 10/13/22 for a telehealth visit. [facility] Hospital and SNF follow up. Admit to [facility] 09/08-11/29. Then at [facility] [place] for 2- 3 weeks. She says that was a horrible experience. Summary of hospitalization as follows: DARYN SHAH is a 76 year old Female With past medical history of hypertension, hyperlipidemia,A-fib on anticoagulation, obesity, lymphedema,chronically bedbound presents with complaints of fever, chills and urinarytract infection.Patient says the whole family felt sick and she was unable to do anything further since 09/07/22. She had fever and chills. She did not complain of any urinary tractsymptoms like burning with urination or difficulty urinating. She did have increased frequency and has been constantly incontinence for a long time. She also has fecal incontinence problem. Today in the ER she was found incontinent withstools at the bedside. No abdominal pain, no headache, no nausea, no vomiting,no chest pain. She says she picks her leg frequently and has some raw areas inher legs bilaterally. On arrival to the ER patient had a blood pressure of 115/55 mmHg, heart [id number] beatsa minute, respiratory 20/min saturating 92% room air. Initial investigation showed WBC 18.1, hemoglobin 8.6, MCV 70, platelet count 200, INR5.4, glucose 170, sodium 129, potassium 3.1, chloride 93, bicarb 27, anion gap30, BUN 20, creatinine 1, calcium 8.8, ALP 92, ALT 8, AST 16, urine was positive for infection. Chest x- ray showed no evidence of acute cardiopulmonary process.During the course in the hospital patient was admitted to telemetry unit. She was started on empiric antibiotic with ceftriaxone. Blood cultures and respiratory cultures were obtained. 48 hours of admission patient developed cellulitis of left thigh. She was started on Vanco and Zosyn. DVT scan was performed which was negative for blood clots. Echocardiogram was normal butshowed ongoing A-fib. She had supratherapeuticINR so her anticoagulation washeld, she also had anemia. FOBT was done was negative. Anticoagulation wasresumed and iron was supplemented. 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 She was kept on fluid restriction. Her sodium numbers improved. She had thrombocytopenia on admission that improved.Patient also had acute depression and was crying all the time. Psychiatry was consulted and Effexorwas increased to 150 daily. She will need psychotherapy as outpatient. Patient this time is bedbound for 3 years. PT OTassessment recommends rehab. Patient at this time agreeable for rehab. Pending rehab acceptance. Patient condition satisfactory at the time of writing this dischargeShe will be discharged when rehab Is accepted 10/13/22 She was transferred to [facility] [place] and developed diarrhea about 2 days after arrival. Found to have C. Dif. Put on Metronidazole and has a few more doses. She has HHC starting next week. Her husbanddied while she was in the hospitalized. She still has the diarrhea. Some better. Seems worse when she gets upset. Has 2 more doses then done. The urine culture actually was negative and UA positive to leukocytes but no nitrites. Blood cultures negative. A1C 7.6 . Hemoglobin was 8.1. With low indices and low iron. Hemoccult negative. Ferritin 47. Iron <10. No melena or blood. Slimy with C. Dif. Sugars have been not checked. Needs to get strips. Was not checked in SNF. Was put back on Metformin. Did not give her diarrhea in the past. She did have a visit with a psychiatrist and felt not to need additional treatment. She had her Effexor doubled. She was gagging with that. She is now on 75 again. Heart feels good. No racing or pain or dyspnea with Afib. Still on Xarelto. Asthma has been good Still not able to get around BP today 113/56 Weight at [facility] was 248. Review of Systems Objective There were no vitals taken for this visit. Physical Exam Audio only so no exam. Oriented and able to communicate will with no distress. Assessment/Plan Problem List Items Addressed This Visit Asthma Atrial fibrillation ([facility]) - Primary Depression, major, single episode, moderate ([facility]) Diabetes mellitus type 2, controlled ([facility]) Relevant Orders Comprehensive Metabolic Panel Iron deficiency anemia Relevant Medications ferrous gluconate 324 (38 Fe) mg tablet Other Relevant Orders CBC Morbid obesity with BMI of 40.0-44.9, adult (CMS/HCC) Weakness of both lower extremities Other Visit Diagnoses Clostridium difficile enteritis Relevant Orders C. difficile, PCR There seems to have never been a UTI but did have the Cellulitis that is doing fine now. She may begetting over the C dif but will put in an order to check next week after off of the Flagyl. May need a different Rx. She has the iron deficiency with hemoccult negative stools so likely insufficient absorption. Will put on iron and follow. She is to have HHC next week and needs that for Intermediate. PT probably not going to be helpful. She is to start monitoring BS but has been good. documented in this [facility] Work Phone: 1(135) 665-602006-08-2023 NoteSend Summary: Discharge Summary Providers: Provider RoleProvider Name ReferringThomas Powers Stephen PrimarySnyder, Roger Owen AttendingThomas Powers Note Recipients: Huan Mcdaniel MD Discharge: Summary: Admission Date: .08-Sep-2022 12:17:00 Discharge Date: 14-Sep-2022 Attending Physician at Discharge: Angelique Clarke Admission Reason: Cellulitis, hyponatremia, SANDRA, urinary tract infection Final Discharge Diagnoses: Atrial fibrillation, Hyponatremia, Iron deficiency anemia, Paroxysmal atrial fibrillation, Persistent depressive disorder with anxious distress, currently mild, Primary hypertension, Type 2 diabetes mellitus without complication Procedures: none Condition at Discharge: Satisfactory Disposition at Discharge: Intermediate Care Facility Vital Signs: T PRBPMAPSpO2 [id number]/6596% Date/Time09/14 7:538 7:5309/14 7:538 7:5309/14 7:53 Range(36.3C - 36.8C ) (59 - 81 ) (16 - 20 ) (95 - 131 )/ (64 - 82 ) (96% - 98% ) Date: Weight/Scale Type:Height: 08-Sep-2022 19:29350.5 kg / qkz636.5 cm Physical Exam: Constitutional: Well developed, obese , awake/alert/oriented x3, no distress, alert and cooperative Eyes: PERRL, EOMI, clear sclera Head/Neck: Neck supple, no apparent injury, thyroid without mass or tenderness, No JVD, trachea midline, no bruits Respiratory/Thorax: Patent airways, CTAB, normal breath sounds with good chest expansion, thorax symmetric Cardiovascular: Regular, rate and rhythm, no murmurs, 2+ equal pulses of the extremities, normal S 1and S 2 Gastrointestinal: Nondistended, soft, non-tender, no rebound tenderness or guarding, no masses palpable, no organomegaly, +BS, no bruits Musculoskeletal: Left thigh cellulitis improved, redness decreased, tenderness decreased Neurological: alert and oriented x3, intact senses, motor, response and reflexes, normal strength Psychological: Appropriate mood and behavior Skin: Warm and dry, no lesions, no rashes Hospital Course: DARYN SHAH is a 76 year old Female With past medical history of hypertension, hyperlipidemia, A-fib on anticoagulation, obesity, lymphedema, chronically bedbound presents with complaints of fever, chills and urinary tract infection. Patient says the whole family felt sick and she was unable to do anything further since yesterday. She had fever and chills. She did not complain of any urinary tract symptoms like burning with urination or difficulty urinating. She did have increased frequency and has been constantly urinating. She also has fecal incontinence problem. Today in the ER she was found incontinent with stools at the bedside. No abdominal pain, no headache, no nausea, no vomiting, no chest pain. She says she picks her leg frequently and has some raw areas in her legs bilaterally On arrival to the ER patient had a blood pressure of 115/55 mmHg, heart rate 106 beats a minute, respiratory 20/min saturating 92% room air. Initial investigation showed WBC 18.1, hemoglobin 8.6, MCV 70, platelet count 200, INR 5.4, glucose 170, sodium 129, potassium 3.1, chloride 93, bicarb 27, anion gap 30, BUN 20, creatinine 1, calcium 8.8, ALP 92, ALT 8, AST 16, urine was positive for infection. Chest x-ray showed no evidence of acute cardiopulmonary process. During the course in the hospital patient was admitted to telemetry unit. She was started on empiric antibiotic with ceftriaxone. Blood cultures and respiratory cultures were obtained. 48 hours of admission patient developed cellulitis of left thigh. She was started on Vanco and Zosyn. DVT scan was performed which was negative for blood clots. Echocardiogram was normal but showed ongoing A-fib. She had supratherapeutic INR so her anticoagulation was held, she also had anemia. FOBT was done was negative. Anticoagulation was resumed and iron was supplemented. 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 She was kept on fluid restriction. Her sodium numbers improved. Her UTI symptoms improved eventually. She had thrombocytopenia on admission that improved. Patient also had acute depression and was crying all the time. Psychiatry was consulted and Effexor was increased to 150 daily. She will need psychotherapy as outpatient. Patient this time is bedbound for 3 years. PT OT assessment recommends rehab. Patient at this time agreeable for rehab. Pending rehab acceptance. Patient condition satisfactory at the time of writing this discharge She will be discharged when rehab Is accepted This note was prepared at the time of dc , signed late (This note was generated with voice recognition software and may contain errors including spelling, grammar, syntax and misrecognition of what was dictated, that are not fully corrected) Discharge Information: and Continuing Care: Lab Results - Pending: None Radiology Results - Pending: None [place] (more content not included)...[facility]06-03-2023 NoteClinical Event: Clinical Event Note: TopicClinic in evaluation of left lower extremity Details I was called by the bedside nurse after she did her initial evaluation at the beginning of the shift to come and check on the patient left lower extremity due to worsening redness/pain and feeling hot to touch. Patient is on Rocephin for UTI, the patient was on Xarelto however that was put on hold due to elevated INR. The redness location/elevated INR argue against DVT however given the high risk of a DVT I am going to order an of the Doppler to rule out a DVT of both lower extremities and we will start the patient on vancomycin for the worsening left lower extremity cellulitis to cover for community-acquired MRSA. Electronic Signatures: Chidi Torres) (Signed 09-Sep-2022 21:16) Authored: Clinical Event Note Last Updated: 09-Sep-2022 21:16 by Chidi Torres)[facility]06-02-2023 NoteHistory of Present Illness: Admission Reason: Bedbound, urinary tract infection HPI: DARYN SHAH is a 76 year old Female With past medical history of hypertension, hyperlipidemia, A-fib on anticoagulation, obesity, lymphedema, chronically bedbound presents with complaints of fever, chills and urinary tract infection. Patient says the whole family felt sick and she was unable to do anything further since yesterday. She had fever and chills. She did not complain of any urinary tract symptoms like burning with urination or difficulty urinating. She did have increased frequency and has been constantly urinating. She also has fecal incontinence problem. Today in the ER she was found incontinent with stools at the bedside. No abdominal pain, no headache, no nausea, no vomiting, no chest pain. She says she picks her leg frequently and has some raw areas in her legs bilaterally On arrival to the ER patient had a blood pressure of 115/55 mmHg, heart rate 106 beats a minute, respiratory 20/min saturating 92% room air. Initial investigation showed WBC 18.1, hemoglobin 8.6, MCV 70, platelet count 200, INR 5.4, glucose 170, sodium 129, potassium 3.1, chloride 93, bicarb 27, anion gap 30, BUN 20, creatinine 1, calcium 8.8, ALP 92, ALT 8, AST 16, urine was positive for infection. Chest x-ray showed no evidence of acute cardiopulmonary process. 10 systems were reviewed and were negative except for those noted in the history of present illness. Problem list reviewed. Past medical history: Hypertension, hyperlipidemia, A-fib on anticoagulation, obesity, lymphedema, type 2 diabetes mellitus, obesity Past surgical history: Tubal ligation, cholecystectomy, section Family history: Not significant to current presentation Allergies: Effexor Social history: Non-smoker, nonalcoholic no drug abuse. Lives with Comorbidities: Comorbidites: Comorbid Conditionsatrial fibrillation, diabetes, hypertension Type of Atrial FibrillationParoxysmal Diabetes TypeType 2 Insulin Dependentno DM Acuity or Statusunknown DM Complicationsunknown Social History: Social History: Smoking Statusnever smoker (1) Alcohol Usedenies(1) Drug Usedenies (1) Allergies: No Known Allergies: Medications Prior to Admission: LISINOPRIL 5MG TAB: 1 tab(s) orally once a day LORazepam 1MG TAB: 1 tab(s) orally once a day (at bedtime) METFORMIN 500MG TAB: 1 tab(s) orally 2 times a day POT CHLORIDE 10MEQ ER CAP: 1 cap(s) orally once a day ROSUVASTATIN 10MG TAB: 1 tab(s) orally once a day TRIAMT/HCTZ 37.5-25 TAB: 1 tab(s) orally once a day VENLAFAXINE ER 75MG CAP: 1 cap(s) orally once a day XARELTO 20 MG TABLET: 1 tab(s) orally once a day ATENOLOL 100MG TAB: 0.5 tab(s) orally 2 times a day. Objective: Objective Information: T PRBPMAPSpO2 [id number]/7098% Date/Time09/08 16: 17: 17: 17: 17:30 Range(37.4C - 39.1C ) (73 - 106 ) (18 - 24 ) (94 - 120 )/ (48 - 70 ) (94% - 98% ) Highest temp of 39.1 C was recorded at 09/08 12:17 Pain reported at 09/08 12:56: 0 = None Physical Exam by System: Constitutional: Well developed, obese , awake/alert/oriented x3, no distress, alert and cooperative Eyes: PERRL, EOMI, clear sclera Head/Neck: Neck supple, no apparent injury, thyroid without mass or tenderness, No JVD, trachea midline, no bruits Respiratory/Thorax: Patent airways, CTAB, normal breath sounds with good chest expansion, thorax symmetric Cardiovascular: Regular, rate and rhythm, no murmurs, 2+ equal pulses of the extremities, normal S 1and S 2 Gastrointestinal: Nondistended, soft, non-tender, no rebound tenderness or guarding, no masses palpable, no organomegaly, +BS, no bruits Musculoskeletal: ROM intact, no joint swelling, normal strength Neurological: alert and oriented x3, intact senses, motor, response and reflexes, normal strength Psychological: Appropriate mood and behavior Skin: No areas of skin bilateral leg areas Medications: Medications: Continuous Medications 1. Sodium Chloride 0.9% Infusion: 1000 mL IntraVenous Scheduled Medications 1. Atenolol: 50 mg Oral 2 Times a Day 2. cefTRIAXone 1 gram/ Dextrose 5% IVPB Premixed Soln 50 mL: 50 mL IntraVenous Piggyback Every 24 Hours 3. Enoxaparin SubCutaneous: 40 mg SubCutaneous Every 12 Hours 4. Insulin Regular Moderate Corrective Scale: unit(s) SubCutaneous 3 Times a Day Before Meals 5. Lisinopril: 5 mg Oral Daily 6. LORazepam: 1 mg Oral At Bedtime 7. Pantoprazole: 40 mg Oral Daily 8. Potassium Chloride Extended Release: 10 mEq Oral Daily 9. Rosuvastatin: 10 mg Oral Daily 10. Triamterene 37.5 mg- hydroCHLOROthiazide 25 mg - PEDS: 1 tablet(s) Oral Daily 11. Venlafaxine Extended Release: 75 mg Oral Daily PRN Medications 1. Acetaminophen: 65 (more content not included)...[facility] 12-02-2021 Chief complaint Narrative - Reported* An interactive audio and video telecommunication system which permits real time communications between the patient (at the originating site) and provider (at the distant site) was utilized to providethis telehealth service. * Verbal consent was requested and obtained from DARYN SHAH on this date, 12/02/2021 03:30 PM , for a telehealth visit. * [facility] Work Phone: 1([phone]) [phone] Chief complaint Narrative - Reported* An interactive audio and video telecommunication system which permits real time communications between the patient (at the originating site) and provider (at the distant site) was utilized to providethis telehealth service. * Verbal consent was requested and obtained from DARYN SHAH on this date, 09/01/2021 11:30 AM , for a telehealth visit. * [facility] certification F2F [facility] Work Phone: [phone]) 580-357401-01-2022 History of Present illness Narrative* Asthma - has been good on no meds. * Atrial Fibrillation - not noted. Has had phone visit with Dr May in April. No chest pain or palpitations. BMP WNL except. GFR of 60. * Benign essential hypertension and CKD III - Med works well without side effects. Home blood pressure 112/60 at home. GFR 60 this time. No Chest pain, Dyspnea, palpitations, numbness, weakness, claudication, or double vision/ loss of vision. Edema is better with the hospital bed * Depressive disorder - seems to be in a good phase now that she can get out. People in her home for palliative care but no longer. 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 Done with all of that. She is realizing that she cannot do anything about many of the things. PHQ-9 score of 8. Activity- she gets in Wheelchair.But not every day. * Diabetes - has been low 100s when she checks. A1C 6.1%. Says in the past was on bid Metformin but now only once a day. Some blurring and needs to get to eye doctor still. Tingling in fingers and toes. Lights with circles around them so thinks cataracts or macular degeneration. No sores on feet or bu ttocks. Has a hospital bed that really helps. Eyes are dry and moisturizing drops. But still needs to get in. But can drop the metformin and will check in a few months * Knees with arthritis pain when trying to walk. Cannot stand without help. Less afraid to stand but not ready to walk as she would fall. Wakes at hs at times * Hyperlipidemia - with DM will treat this with Crestor. * Lymphedema of leg - exercises have really helped to get this down. She has not been needing the compression wraps.. She has been on Facebook page for this. * . * Neurodermatitis come and go - She is picking less. No sores on legs now. * Obesity, unspecified - not active but eating less. No recent weights. Stopped her dietary supplement * Personal history of colonic polyps - not ready for scope yet. But will do Cologuard. * Vitamin D deficiency - Taking supplement and level is 30. Magnesium is 1.5. * Mammogram 02/14/19 scheduled and will check if in wheelchair * Colonoscopy 2002. She * UDS 02/04/21 marijuana in UDS. Informed she must stop that as not safe with the lorazepam. I will check again in the near future. 06/09/21 she says it was a Gummi with CBD and said not in the urine. * CSA 02/04/21 * I have personally reviewed the patients OARRS report. This report is filed in the EHR. I have considered the risks of abuse, addiction and diversion. I believe it is clinically appropriate to continue to prescribe this medication. * UDS 10/30/19 as expected for medication profile * CSA 10/30/19 [facility] Work Phone: [phone] History of Present illness Narrative* Asthma - has been good on no meds. * Atrial Fibrillation - not noted. Has had phone visit with Dr May in April. No chest pain or palpitations. BMP WNL except. GFR of 60. * Benign essential hypertension and CKD III - Med works well without side effects. Home blood pressure 112/60 at home. GFR 60 this time. No Chest pain, Dyspnea, palpitations, numbness, weakness, claudication, or double vision/ loss of vision. Edema is better with the hospital bed * Depressive disorder - seems to be in a good phase now that she can get out. People in her home for palliative care but no longer. 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 Done with all of that. She is realizing that she cannot do anything about many of the things. PHQ-9 score of 8. Activity- she gets in Wheelchair.But not every day. * Diabetes - has been low 100s when she checks. A1C 6.1%. Says in the past was on bid Metformin but now only once a day. Some blurring and needs to get to eye doctor still. Tingling in fingers and toes. Lights with circles around them so thinks cataracts or macular degeneration. No sores on feet or bu ttocks. Has a hospital bed that really helps. Eyes are dry and moisturizing drops. But still needs to get in. But can drop the metformin and will check in a few months * Knees with arthritis pain when trying to walk. Cannot stand without help. Less afraid to stand but not ready to walk as she would fall. Wakes at hs at times * Hyperlipidemia - with DM will treat this with Crestor. * Lymphedema of leg - exercises have really helped to get this down. She has not been needing the compression wraps.. She has been on Facebook page for this. * . * Neurodermatitis come and go - She is picking less. No sores on legs now. * Obesity, unspecified - not active but eating less. No recent weights. Stopped her dietary supplement * Personal history of colonic polyps - not ready for scope yet. But will do Cologuard. * Vitamin D deficiency - Taking supplement and level is 30. Magnesium is 1.5. * Mammogram 02/14/19 scheduled and will check if in wheelchair * Colonoscopy 2002. She * UDS 02/04/21 marijuana in UDS. Informed she must stop that as not safe with the lorazepam. I will check again in the near future. 06/09/21 she says it was a Gummi with CBD and said not in the urine. * CSA 02/04/21 * I have personally reviewed the patients OARRS report. This report is filed in the EHR. I have considered the risks of abuse, addiction and diversion. I believe it is clinically appropriate to continue to prescribe this medication. * UDS 10/30/19 as expected for medication profile * CSA 10/30/19 [facility] Work Phone: [phone]) 979-647610-29-2021 History of Present illness Narrative* Finally able to come to office as she got scooter and slide board . * Asthma - has been good on no meds. * Atrial Fibrillation - not noted. Has had phone visit with Dr Villagran in April. No chest pain or palpitations. Renal panel WNL except for low Magnesium at 1.5 and GFR of 56. She is on magnesium * Benign essential hypertension and CKD III - Med works well without side effects. Home blood pressure 126/73 at home. GFR 56 this time. * Depressive disorder - seems to be in a good phase now that she can get out. People in her home for palliative care but no longer. 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 Done with all of that. She is realizing that she cannot do anything about many of the things. * Diabetes - has been low 100s when she checks. A1C 6.6% in October. Says in the past was on bid Metformin but now only once a day. Some blurring and needs to get to eye doctor still. Tingling in fingers and toes. Lights with circles around them so thinks cataracts or macular degeneration. No sores on feet on buttocks. Has a hospital bed that really helps. * Knees with arthritis pain when trying to walk. Cannot stand without help. Less afraid to stand but not ready to walk as she would fall. Wakes at hs at times * Lymphedema of leg - exercises have really helped to get this down. She has the compression wraps but not using them.. She has been on Facebook page for this. * . * Neurodermatitis come and go - She is picking less. No sores on legs now. * Obesity, unspecified - not active but eating less. No recent weights. Stopped her dietary supplement * Personal history of colonic polyps - not ready for scope yet. But will do Cologuard. * Vitamin D deficiency - hates supplements so not taking this. Level is 20. Magnesium is 1.5. Will supplement. * Mammogram 02/14/19 scheduled and will check if in wheelchair * Colonoscopy 2002. She did not get the Cologuard. * UDS 02/04/21 * CSA 02/04/21 * I have personally reviewed the patients OARRS report. This report is filed in the EHR. I have considered the risks of abuse, addiction and diversion. I believe it is clinically appropriate to continue to prescribe this medication. * UDS 10/30/19 as expected for medication profile * CSA 10/30/19 [facility] Work Phone: 1([phone]) [phone] Chief complaint Narrative - Reported* An interactive audio and video telecommunication system which permits real time communications between the patient (at the originating site) and provider (at the distant site) was utilized to providethis telehealth service. * Verbal consent was requested and obtained from DARYN SHAH on this date, 11/05/2020 01:30 PM , for a telehealth visit. * Electric Wheelchair evaluation -[facility] Work Phone: [phone]) [phone] History of Present illness Narrative* 75-year-old female with a medical history of morbid obesity, hypertension, diabetes, lymphedema, atrial fibrillation here for follow-up: * Problem #1 paroxysmal atrial fibrillation * -Current medications include atenolol 50 mg twice daily, Xarelto 20 mg daily * -Echocardiogram dated 02/14/2019 shows normal biventricular function, biatrial dilatation * -Currently on this visit the patient denies any chest discomfort or shortness of breath. Denies anyorthopnea/PND. She has some lower extremity edema secondary to her lymphedema but notes that that has been steadily improving. Denies any bleeding complications from her Xarelto * Problem #2 hypertension * -Checks her blood pressure at home every day and has been largely controlled. [id number] [address] Work Phone: [phone] History of Present illness Narrative* 76-year-old female with a medical history of morbid obesity, hypertension, diabetes, lymphedema, atrial fibrillation here for follow-up: * Problem #1 longstanding persistent atrial fibrillation * -Current medications include atenolol 50 mg twice daily, Xarelto 20 mg daily * -Echocardiogram dated 02/14/2019 shows normal biventricular function, biatrial dilatation * -Currently on this visit the patient denies any chest discomfort or shortness of breath. Denies anyorthopnea/PND. She has some lower extremity edema secondary to her lymphedema. Denies any bleeding complications from her Xarelto * Problem #2 hypertension * -Controlled today [id number] [address] Work Phone: Consult note Author Jones Greer [facility] Note Date/Time July 01, 2024 2:0 7pm [facility] Medical Records Department [address] [place] [id number] Anesthesia Postop Eval I 07/01/241405 MR#: [id number] Acct: [id number] Name: DARYN SHAH BLANE Rep #:[id number] 1 : 1945 78 From: Jones Greer PCP: April Mullen MD Status:[facility] Y Race: C Location: [place] [address] Anesthesia: Postop Eval I Current Vital Signs Temperature: 97.6 F Pulse Rate: 88 Blood Pressure: 110/87 Respiratory Rate: 18 Pulse Ox: 96 Oxygen Delivery Method: Room Air Assessment Airway patent: Yes Spontaneous unlabored respirations: Yes Mental status: Awake and Calm nausea: No Vomiting: No Anesthesia Complication: No Fluid Hydration Crystalloid volume administer (ml): 90 Total IV fluid infused: 90 Progress Note Anesthesia document: Postop Eval 1 completed: Yes 07/01/241406 <Electronically signed by Jones Greer > Date _ Jones Greer Cosigner Signature: Date CC: ~ Signed [facility] Work Phone: Evaluation note* Diagnosis Chronic atrial fibrillation (CMS/HCC)- Primary Atrial fibrillation Asthma, unspecified asthma severity, unspecified whether complicated, unspecified whether persistent 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, without long-term current use of insulin (CMS/HCC) Depression, major, single episode, moderate (CMS/HCC) Iron deficiency anemia secondary to inadequate dietary iron intake Morbid obesity with BMI of 40.0-44.9, adult ([facility]) Weakness of both lower extremities Clostridium difficile enteritis documented in this encounter [facility] Work Phone: Evaluation note* Diagnosis Anxiety- Primary Anxiety state, unspecified 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, without long-term current use of insulin (CMS/HCC) Asthma, unspecified asthma severity, unspecified whether complicated, unspecified whether persistent Chronic atrial fibrillation (CMS/HCC) Atrial fibrillation Benign essential hypertension Essential hypertension, benign Depression, major, single episode, moderate (CMS/HCC) Diarrhea, unspecified type Generalized muscle weakness Muscle weakness (generalized) Hyperlipidemia, unspecified hyperlipidemia type Lumbar facet arthropathy Spondylosis of unspecified site without mention of myelopathy Lymphedema of both lower extremities Morbid obesity with BMI of 40.0-44.9, adult ([facility]) Neurodermatitis Lichenification and lichen simplex chronicus Personal history of colonic polyps Primary osteoarthritis of both knees Vitamin D deficiency documented in this encounter [facility] Work Phone: Evaluation note* Diagnosis Morbid obesity with BMI of 40.0-44.9, adult ([facility])- Primary Diabetes 1.5, managed as type 2 ([facility]) Anxiety Anxiety state, unspecified Benign essential hypertension Essential hypertension, benign Hyperlipidemia, unspecified hyperlipidemia type Hypokalemia Hypopotassemia Hypomagnesemia Disorders of magnesium metabolism Iron deficiency anemia secondary to inadequate dietary iron intake Vitamin D deficiency Age-related incipient cataract of both eyes documented in this encounter [facility] Work Phone: Evaluation note* Diagnosis Syndrome of inappropriate secretion of antidiuretic hormone ([facility])- Primary 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, managed as type 2 ([facility]) Anxiety Anxiety state, unspecified Venous stasis ulcer with varicose veins of lower extremity ([facility]) Chronic atrial fibrillation ([facility]) Atrial fibrillation Depression, major, single episode, moderate ([facility]) Morbid obesity with BMI of 40.0-44.9, adult ([facility]) 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, without long-term current use of insulin ([facility]) documented in this encounter [facility] Work Phone: [phone] note* Diagnosis Contusion of right foot, initial encounter- Primary Hematoma of right foot documented in this encounter [facility] Work Phone: [phone] note* Diagnosis Hematoma of right foot- Primary Anxiety Anxiety state, unspecified documented in this encounter [facility] Work Phone: [phone] note* Diagnosis Persistent atrial fibrillation (Multi)- Primary Atrial fibrillation documented in this encounter [facility] Work Phone: [phone] note* Diagnosis Persistent atrial fibrillation (Multi) Atrial fibrillation documented in this encounter [facility] Work Phone: [phone] note* Diagnosis Vitamin D deficiency- Primary Chronic atrial fibrillation (Multi) Atrial fibrillation Diabetes 1.5, managed as type 2 (Multi) 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) Other disorders of neurohypophysis documented in this encounter [facility] Work Phone: [phone] note* Diagnosis Vertebral osteomyelitis (Multi)- Primary Unspecified osteomyelitis, other specified site documented in this encounter [facility] Work Phone: [phone] note* Diagnosis S/P laminectomy- Primary Other postprocedural status documented in this encounter [facility] Work Phone: [phone] note* Diagnosis Hyponatremia- Primary Hyposmolality and/or hyponatremia Hyponatremia Hyposmolality and/or hyponatremia Benign essential hypertension Essential hypertension, benign Iron deficiency anemia secondary to inadequate dietary iron intake Mixed hyperlipidemia documented in this encounter [facility] Work Phone: [phone] note* Diagnosis Discitis, unspecified, thoracic region- Primary Discitis, unspecified, thoracic region Bacteremia 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, without long-term current use of insulin (Multi) Intractable back pain Shortness of breath Chronic atrial fibrillation (Multi) Atrial fibrillation Depression, major, single episode, moderate (Multi) Lung mass Swelling, mass, or lump in chest Malignant neoplasm of unspecified part of unspecified bronchus or lung (Multi) documented in this encounter [facility] Work Phone: Evaluation note* Diagnosis Spondylosis with myelopathy, thoracic region- Primary documented in this encounter [facility] Work Phone: Evaluation note* Diagnosis Vertebral osteomyelitis (Multi)- Primary Unspecified osteomyelitis, other specified site Discitis, unspecified, thoracic region documented in this encounter [facility] Work Phone: History of Present illness Narrative* Power Mobility Device Evaluation_[facility] * Current Symptoms, Related Diagnosis and History * 1. Medical conditions/ diseases limiting patient's mobility at home: Diabetes/ Neuropathy and Osteoarthritis. * Morbid obesity * 2. Symptoms: abnormal gait and walking limitations. unable to walk even with a walker * 3. Pain Location: lower back, right knee and left knee. * Prior treatments used or are currently being used to improve the patient s condition: She is in intensive home physical therapy and improved but they do not see her progressing to mobility in the home * Physical Exam: Height: 5-5, Weight: 307 lbs, Pulse: 70, no shortness of breath at rest and shortness of breath w/ exertion * Does not require O2 * There is no history of pressure sores. * There are no current pressure sores. * Poor balance, poor endurance, history of falls, risk of falls and significant edema. * History of Present Problem: * Gait/ Walk Pattern: max. assist. * Balance/ history or risk of falls: Onset:She is weak and drags a leg but not history of stroke. * Fatigue/ weakness: Onset: several years inspite of PT. A lot of edema * Severe lower body weakness, Has severe edema and limited walking for several years. * Moderate lower body pain, Knees for several years and not candidate for TKR due to weight. * Mild lower body range of motion * Description of the patient s current living situation: Lives at home with and son * Brief description of the physical layout of the patient s home: One story house. Ramp to get in. Doors wide enough for wheelchair except bathroom. Uses bedside commode * Can MRADLs be performed on one level of the home? Yes * Ambulatory Status in Relation to Mobility Related Activities of Daily Living (MRADL) in Home: * 1. The number of feet the patient can safely walk without stopping and without a mobility aid: Can stand with walker but cannot walk. This distance does not allow the patient to independently accomplish ALL MRADL in the home in a safe and timely fashion. * Cannot walk even with a walker but can stand only. * 2. MRADL that the patient is unable to accomplish in the home in a safe and timely fashion due to mobility limitations: feeding, bathing, grooming, dressing and toileting. * She is not able to get to kitchen, bathroom or commode. Can transfer with trapeze in a bed. Has hospital. * Areas of the home in which the MRADLs will be accomplished with a PMD: All but bathroom but would be able to go to a sink for sink bath. * 3. The patient does not have the ability to stand from a seated position without assistance. Can stand with walker at sink. Uses trapeze to get out of bed. * Mobility Determination Questions: * 1. A cane or walker does not meet this patient s mobility needs to independently accomplish ALL mobility related activities of daily living' * Can only stand with the walker. * 2. A manual wheelchair meets this patient s mobility needs to independently accomplish ALL MRADL inthe home in a safe and timely fashion. * 3. How has your patient s condition/functional limitations changed so that they now require a powermobility device to complete their MRADL inside the home? * She has actually been immobile for a year or more and now has PT who feel she can accomplish it with the device. * 4. Some of the limitations of the power operated vehicle/scooter or reasons a patient would not be able to use a power operated vehicle/scooter: * Patient requires elevating leg rest (ELR). Examples of limitations/conditions include: patient has significant edema of lower extremities that requires having an elevated leg rest. * Patient requires fully reclining back seat. Examples of limitations/conditions include: patient s home presents insufficient space for maneuvering power operated vehicle/scooter. * 5. The patient has the physical and mental abilities to safely operate a power mobility device in their home. * The patient does not have evidence of abuse of either prescribed or illicit substances that may interfere with the safe use of a PMD. * 6. The patient is willing and motivated to use power mobility equipment in their home. * Based on this [id number] evaluation, the patient has functional limitations that support the needfor a standard power mobility device and does not require further evaluation. * * I certify that the information provided is a true and accurate representation of my patient s current condition and that a major reason for the visit was a mobility examination. I hereby incorporate this document into my patient s medical record. * The [employer] has created this form and made it available for physicians use. It is available on their website at http://[email or web address].org/resources/usefulForms/. * From OV on November 02, 2020 * Asthma - has been good on no meds. * Atrial Fibrillation - not noted. Has had phone visit with Dr Villagran in April. No chest pain or palpitations. CMP WNL except for low Magnesium at 1.5 and GFR of 56. * Benign essential hypertension and CKD III - Med works well without side effects. Home blood pressure 126/73 at home. GFR 56 this time. * Depressive disorder - seems to be in a good phase and people in her home for palliative care, PT, OT and [employer] IN[employer]ATION [employer]PER. She is realizing that she cannot do anything about many of the things. Seemed to get worse after Cody from Palliative care put her on Effexor and now it is costly do will go back to Paxil. sprinkler worker from [facility] comes monthly. . She is not getting out much. She did get COVID-19 immunization. * Diabetes - has been low 100s when she checks. A1C 6.6%. Says in the past was on bid Metformin but now only once a day. Some blurring and needs to get to eye doctor still. Tingling in fingers and toes. Lights with circles around them so thinks cataracts or macular degeneration. No sores on feet on bu ttocks. Has a hospital bed that really helps. * Knees with arthritis pain when trying to walk. Cannot stand without help. Less afraid to stand but not ready to walk as she would fall. Wakes at hs at times * Lymphedema of leg - exercises have really helped to get this down. She has the compression wraps but not using them.. * . * Neurodermatitis come and go - She is picking less. No sores on legs now. * Obesity, unspecified - not active but eating less. No recent weights. Stopped her dietary supplement * Personal history of colonic polyps - not ready for scope yet. But will do Cologuard. * Vitamin D deficiency - hates supplements so not taking this. Level is 20. Magnesium is 1.5. Will supplement. * Mammogram 02/14/19 scheduled. * Colonoscopy 2002. She did not get the Cologuard. * UDS 10/30/19 * CSA 10/30/19 * In light of the current pandemic related to Coronavirus causing COVID-19 illness, and in accordancewith CDC guidelines which encourage social distancing, I have spoken with my patient via telemedicine. They have not had any changes to their medication, dosage, or symptomatology which would necessitate an in-person visit. I have personally reviewed the OARRS report for this patient. This report is scanned into the electronic medical record. I have considered the risks of abuse, dependence, addiction and diversion. My patient is aware that they will need a follow-up visit (either in-person or v irtually) in another 90 days for continued medications. Further, my patient is aware that when thisacute crisis has lifted, they will be expected to return for an in-person visit and all elements ofUH guidelines in order to continue this medication. * UDS 10/30/19 as expected for medication profile * CSA 10/30/19 -[facility] Work Phone: History of Present illness Narrative* Has changed [facility] companies and needs new certification. She continues to have following chronic conditions. She is homebound due to generalized weakness and back pain. She cannot get into her van due to being too high for slide board. Her car needs fixed. * Asthma - has been good on no meds. Cough for a month. She did get a -Z-Frantz. Finished Prednisone burst. Would like to try an inhaler. Cough seem related to stress as well. * Atrial Fibrillation - not noted. Has had phone visit with Dr Valdivia in April. No chest pain or palpitations. BMP WNL except GFR of 60 and BS 239 n June * Benign essential hypertension and CKD III - Med works well without side effects. Home blood pressure 106/65 at home. GFR 60 last time. No Chest pain, Dyspnea, orthopnea, palpitations, numbness, weakness, claudication, or double vision/ loss of vision. Edema is better with the hospital bed * Depressive disorder - seems to be in a good phase now that she can get out. She was with palliativecare but no longer and insurance would like to get someone for HHC. 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 She is realizing that she cannot do anything about many of the things. PHQ-9 score of 8 last time. Activity- she gets in Wheelchair. But not every day. * Diabetes - has been low 100s when she checks. A1C 6.1% last time. Says in the past was on bid Metformin but then on daily and off. Some blurring and needs to get to eye doctor still. Tingling in fingers and toes. Lights with circles around them so thinks cataracts or macular degeneration. No sores on feet or buttocks. Has a hospital bed that really helps. Eyes are dry and moisturizing drops. But still needs to get in. * Knees with arthritis pain when trying to walk. Cannot stand without help. Doing her exercises. Lessafraid to stand but not ready to walk as she would fall. Wakes at hs at times. * Hyperlipidemia - with DM treating this with Crestor. * Lymphedema of leg - exercises have really helped to get this down. She has not been needing the compression wraps. * . * Neurodermatitis come and go - Picking at legs and arms. On nova with her edema as well * Obesity, unspecified - not active but eating less. No recent weights. Stopped her dietary supplement * Personal history of colonic polyps - not ready for scope yet. Cologuard negative. * Vitamin D deficiency - Taking supplement and level is 30. Magnesium is 1.5. * Mammogram 02/14/19 scheduled and will check if in wheelchair. * Colonoscopy 2002. Cologuard November 05, 2020 * UDS 02/04/21 marijuana in UDS. Informed she must stop that as not safe with the lorazepam. I will check again in the near future. 06/09/21 she says it was a Gummi with CBD. * CSA 02/04/21 * I have personally reviewed the patients OARRS report. This report is filed in the EHR. I have considered the risks of abuse, addiction and diversion. I believe it is clinically appropriate to continue to prescribe this medication. [facility] Work Phone: History of Present illness Narrative* No longer has HHC. * Asthma - has been good on no meds. Cough seem related to stress as well. * Atrial Fibrillation - not noted. Has had phone visit with Dr Valdivia in May. No chest pain or palpitations. BMP WNL except FBS of 143. * Benign essential hypertension and CKD III - Med works well without side effects. Home blood pressure 106/65 at home. No Chest pain, Dyspnea, orthopnea, palpitations, numbness, weakness, claudication,or double vision/ loss of vision. Edema is better with the hospital bed. * Depressive disorder - seems to be in a good phase now that she can get out. She is no longer with palliative care. 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 She is realizing that she cannot do anything about many of the things. Activity- she gets in Wheelchair without the board. Biggest issue is her son. She cannot a llow her house to be a destination for him. She does well when he is not there. Turn worries into prayers. * Diabetes - has been mid 100s in AM when she checks. A1C 6.8% in September. Says in the past was on bid Metformin but then on daily and off. Some blurring and needs to get to eye doctor still. Tingling in fingers and toes. Lights with circles around them so thinks cataracts or macular degeneration. No sores on feet or buttocks. Has a hospital bed that really helps. Eyes are dry and moisturizing drops. But still needs to get in. * Knees with arthritis pain when trying to walk. Cannot stand without help. Doing her exercises. Lessafraid to stand but not ready to walk as she would fall. Wakes at hs at times. Still cannot get into shower and bathroom. Has a walker. * Hyperlipidemia - with DM treating this with Crestor. Good in June * Lymphedema of leg - exercises have really helped to get this down. She has not been needing the compression wraps. Feels like she has shoes on when she does not. * . * Neurodermatitis come and go - Picking at legs and arms. On nova with her edema as well. Not red. * Obesity, unspecified - not active but eating less. No recent weights. Stopped her dietary supplement * Personal history of colonic polyps - not ready for scope yet. Cologuard negative. * Vitamin D deficiency - Taking supplement and level was 30 in June Magnesium was 1.5. * Mammogram 02/14/19 scheduled and will check if in wheelchair. * Colonoscopy 2002. Cologuard November 05, 2020 * UDS 02/04/21 marijuana in UDS. Informed she must stop that as not safe with the lorazepam. I will check again in the near future. 06/09/21 she says it was a Gummi with CBD. 09/14/21 no Cannabinoids * CSA 02/04/21 * I have personally reviewed the patients OARRS report. This report is filed in the EHR. I have considered the risks of abuse, addiction and diversion. I believe it is clinically appropriate to continue to prescribe this medication. -[facility] Work Phone: History of Present illness Narrative* No longer has HHC. She is doing better and able to get in here on her own. In wheelchair. Has lift on van. She is not able to stand on scales. She has been to eye doctor and did get glasses. Notes high pressure. * Asthma - has been good on no meds. Cough seem related to stress as well. * Atrial Fibrillation - not noted. Has had phone visit with Dr Valdivia in May. No chest pain or palpitations. BMP WNL with GFR 74 but FBS 124. * Benign essential hypertension and CKD III - Med works well without side effects. Home blood pressure good. . No Chest pain, Dyspnea, orthopnea, palpitations, numbness, weakness, claudication, or double vision/ loss of vision. Edema is better with the hospital bed. Has secondary changes of skin. Does have some vertigo when rolling around to get pull-ups on. OK when up. * Depressive disorder - seems to be in a good phase now that she can get out. She is no longer with palliative care. 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 . She is realizing that she cannot do anything about many of the things. Activity- she gets in Wheelchair without the board. Biggest issue is her son. She cannot allow her house to be a destination for him. She does well when he is not there. Turnworries into prayers. * Diabetes - has been mid 100s in AM when she checks. A1C 7.1% this time. Says in the past was on bidMetformin but then on daily and off. She is on glimepiride and can get off of that. And back on metformin Vision is better with the glasses. Tingling and cramps in fingers and toes. Magnesium is low so will get back on that. No sores on feet or buttocks. Has a hospital bed that really helps. Eyes are dry * Diarrhea with mushy stools. Not frequent * Knees with arthritis pain when trying to walk. Cannot stand without help. Doing her exercises. Lessafraid to stand but not ready to walk as she would fall. Wakes at hs at times. Still cannot get into shower and bathroom. Has a walker but uses a wheelchair * Hyperlipidemia - with DM treating this with Crestor. Good this time * Lymphedema of leg - exercises have really helped to get this down. She has not been needing the compression wraps. Feels like she has shoes on when she does not. * . * Neurodermatitis come and go - Picking at legs and arms. On nova with her edema as well. Not red. * Obesity, unspecified - not active but eating less. No recent weights. Stopped her dietary supplement * Personal history of colonic polyps - not ready for scope yet. Cologuard negative. * Vitamin D deficiency - Taking supplement and level was 27 this month Magnesium was 1.5. Will get back on those . * Mammogram 02/14/19 scheduled and will check if in wheelchair. Will wait till next visit and better weather * Colonoscopy 2002. Cologuard November 05, 2020 * UDS 02/04/21 marijuana in UDS. Informed she must stop that as not safe with the lorazepam. I will check again in the near future. 06/09/21 she says it was a Gummi with CBD. 09/14/21 no Cannabinoids * CSA 10/29/21 * I have personally reviewed the patients OARRS report. This report is filed in the EHR. I have considered the risks of abuse, addiction and diversion. I believe it is clinically appropriate to continue to prescribe this medication. She has had some early fills so will date this one and talked to herabout it -[facility] Work Phone: History of Present illness Narrative* The patient is being seen for the initial annual wellness visit. * Past Medical, Surgical and Family History: reviewed and updated in chart. * Medications and Supplements: Review of all medications by a prescribing practitioner or clinical pharmacist (such as prescriptions, OTCs, herbal therapies and supplements) documented in the medical record. * No, the patient is not using opioids. * Patient Self Assessment of Health Status: good. * Tobacco use: Non-User * Alcohol use: Non-User * Illicit drug use: Non-User * Current diet: unhealthy diet, does not consume adequate fluids and does not consume caffeine. * Exercise Frequency: regularly. * Depression/Suicide Screening:. * During the past 2 weeks, the patient felt down, depressed or hopeless. * During the past 2 weeks, the patient felt little interest or pleasure in doing things. * PHQ-9 Depression Scale: * 1. Little interest or pleasure in doing things - several days * 2. Feeling down, depressed or hopeless - nearly every day * 3. Trouble falling asleep or sleeping too much - more than half the days * 4. Feeling tired or having little energy - nearly every day * 5. Poor appetite or overeating - nearly every day * 6. Feeling bad about self or failure or letting others down - nearly every day * 7. Trouble concentrating on things - not at all * 8. Moving / speaking slowly or fidgety / restless - nearly every day * 9. Thought would be better off or hurting self - not at all * Total Score: 18/27 * Severity of depression is moderately severe. * How difficult have these problems made it for you to do your work, take care of things at home, or get along with people? Somewhat difficult. * Hearing Impairment: Patient has significant hearing impairment. * Cognitive Impairment: No cognitive impairment observed, patient or family reported no cognitive impairment. * Bathing: needs assistance. * Dressing: performs independently. * Walking: dependent. * Managing Finances: performs independently. * Shopping: performs independently. * Managing Medications: performs independently. * Housework / Basic Home Maintenance: dependent. * Falls Risk Screening:. DARYN has not fallen in the last 6 months. * Home safety risk factors: poor household lighting, no grab bars in the bathroom and household clutter. * Advance directives:. Advanced Care Planning discussed and documented advance care plan or surrogatedecision maker documented in the medical record. Patient has living will. Patient has no healthcarePOA. * Patient's End of Life Decisions: End of life decisions were reviewed with the patient. I agree to follow the patient's decisions. * Additional Information: [place] and [place]. * No longer has HHC. She is doing better and able to get in here on her own. In wheelchair. Has lift on van. She is not able to stand on scales. She has been to eye doctor and did get glasses. Notes high pressure. Going out to eat. drives but she uses lift on van for WC * Asthma - has been good on no meds. Cough seem related to stress as well. * Atrial Fibrillation - not noted. Has had phone visit with Dr Valdivia in May. No chest pain or palpitations. * Benign essential hypertension I - Med works well without side effects. Home blood pressure good. . No Chest pain, Dyspnea, orthopnea, palpitations, numbness, weakness, claudication, or double vision/loss of vision. Edema is better with the hospital bed. Has secondary changes of skin. Does have some vertigo when rolling around to get pull-ups on. OK when up. * Depressive disorder - seems to be in a good phase now that she can get out. She is no longer with palliative care. 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 . She is realizing that she cannot do anything about many of the things. Activity- she gets in Wheelchair without the board. Biggest issue is her son. She does well when he is not there. She is learning to let him make his own choices but cannot complain about consequences. PHQ-9 score 18 * Diabetes - has been mid 100s in AM when she checks. A1C 8.0% this time. Says in the past was on bidMetformin but then on daily and off. She is off glimepiride.. And back on metformin.. Has been all at hs so will go back to bid Vision is better with the glasses. Tingling and cramps in fingers and to es. Magnesium is low so will get back on that. No sores on feet or buttocks. Has a hospital bed that really helps. Eyes are dry * Diarrhea with mushy stools. Not frequent * Knees with arthritis pain when trying to walk. Cannot stand without help. Doing her exercises. Lessafraid to stand but not ready to walk as she would fall. Wakes at hs at times. Still cannot get into shower and bathroom so washes at bedside and uses bedpan. Plans to go to [facility] and slide over. Has a walker but uses a wheelchair * Hyperlipidemia - with DM treating this with Crestor. Good this time * Lymphedema of leg - exercises have really helped to get this down. She has not been needing the compression wraps. Feels like she has shoes on when she does not. * . * Neurodermatitis come and go - Picking at legs and arms. On nova with her edema as well. Not red. Feels doing better * Obesity, unspecified - not active but eating less. No recent weights. Stopped her dietary supplement * Personal history of colonic polyps - not ready for scope yet. Cologuard negative. * Vitamin D deficiency - Taking supplement and level was 27 this month Magnesium was 1.5. Will get back on those . * Mammogram 02/14/19 scheduled and will check if in wheelchair. Will wait till next visit and better weather * Colonoscopy 2002. Cologuard November 05, 2020 * UDS 02/04/21 marijuana in UDS. Informed she must stop that as not safe with the lorazepam. I will check again in the near future. 06/09/21 she says it was a Gummi with CBD. 09/14/21 no Cannabinoids * CSA 02/04/21 * I have personally reviewed the patients OARRS report. This report is filed in the EHR. I have considered the risks of abuse, addiction and diversion. I believe it is clinically appropriate to continue to prescribe this medication. She has had some early fills so will date this one and talked to herabout it MP-[facility] Work Phone: Hospital Discharge instructions* Attachments The following attachments cannot be sent through Care Everywhere. * Minor Contusion ED ([place]) 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, managed as type 2 (CMS/HCC) Procedures Follow Up In Primary Care - Established Huan Mcdaniel MD [address] [facility], [facility] [address] [place] [id number] Referral ID Status Reason Start Date Expiration Date V isits Requested Visits Authorized [id number] Authorized 03/13/2023 03/12/2024 1 1 [facility] Work Phone: reason for referral (narrative)* Consultation (Routine) - Authorized Specialty Diagnoses / Procedures Referred By Contac t Referred To Contact 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, managed as type 2 (CMS/HCC) Procedures Follow Up In Primary Care - Established Huan cMdaniel MD [address] [facility], [facility] [address] [place] [address] Referral ID Status Reason Start Date Expiration Date V isits Requested Visits Authorized [id number] Authorized 04/20/2023 04/19/2024 1 1 [facility] Work Phone: reason for referral (narrative)* Consultation (Routine) - Authorized Specialty Diagnoses / Procedures Referred By Contac t Referred To Contact Pharmacy Diagnoses Persistent atrial fibrillation (Multi) Marleen Sigala, [employer]PPL[employer] CHAIN ASSOCIATE, DNP [address] [facility], [facility] [address] [place] [address] [facility] [address] [place] [address] Referral ID Status Reason Start Date Expiration Date Visits Requested Visits Authorized [id number] Authorized Specialty Services Required 07/20/2023 07/19/2024 1 1 [facility] Work Phone: Reason for referral (narrative)* Consultation (Routine) - Authorized Specialty Diagnoses / Procedures Referred By Contac t Referred To Contact Primary Care Procedures Follow Up In Primary Care - Established Huan Mcdaniel MD [address] [facility], [place] [id number] Referral ID Status Reason Start Date Expiration Date V isits Requested Visits Authorized [id number] Authorized 08/20/2023 08/19/2024 1 1 [facility] Work Phone: Reason for referral (narrative)No reason for referral information availableWC[facility] Work Phone: Reason for visit Narrative* Auth/Cert Specialty Diagnoses / Procedures Referred By Contac t Referred To Contact Diagnoses Metastatic Lesions/Thoracic spine Procedures No coded [place] [address] [facility] [place] [address] [facility] [address] [facility] [place] [address] Referral ID Status Reason Start Date Expiration Date Visits Re quested Visits Authorized [id number] 1 1 [facility] Work Phone: Summary Purpose Family History No Family History Records Found Child Name Dates Details Family history of cystic fib rosis(V18.19, Z83.49) Status:Active Grandparent Name Dates Details Family history of cardiac di sorder(V17.49, Z82.49) Status:Active Family history of diabetes m ellitus(V18.0, Z83.3) Status:Active Mother Name Dates Details Family history of malignant neoplasm of female breast(V16.3, Z80.3) Status:Active Family history of Alzheimer' s disease(V17.2, Z82.0) Status:Active Family history of malignant neoplasm(V16.9, Z80.9) Status:Active Family history of cardiac di sorder(V17.49, Z82.49) Status:Active Child Name Dates Details Family history of cystic fib rosis(V18.19, Z83.49) Status:Active Grandparent Name Dates Details Family history of cardiac di sorder(V17.49, Z82.49) Status:Active Family history of diabetes m ellitus(V18.0, Z83.3) Status:Active Mother Name Dates Details Family history of malignant neoplasm of female breast(V16.3, Z80.3) Status:Active Family history of Alzheimer' s disease(V17.2, Z82.0) Status:Active Family history of malignant neoplasm(V16.9, Z80.9) Status:Active Family history of cardiac di sorder(V17.49, Z82.49) Status:Active Child Name Dates Details Family history of cystic fib rosis(V18.19, Z83.49) Status:Active Grandparent Name Dates Details Family history of cardiac di sorder(V17.49, Z82.49) Status:Active Family history of diabetes m ellitus(V18.0, Z83.3) Status:Active Mother Name Dates Details Family history of malignant neoplasm of female breast(V16.3, Z80.3) Status:Active Family history of Alzheimer' s disease(V17.2, Z82.0) Status:Active Family history of malignant neoplasm(V16.9, Z80.9) Status:Active Family history of cardiac di sorder(V17.49, Z82.49) Status:Active Child Name Dates Details Family history of cystic fib rosis(V18.19, Z83.49) Status:Active Grandparent Name Dates Details Family history of cardiac di sorder(V17.49, Z82.49) Status:Active Family history of diabetes m ellitus(V18.0, Z83.3) Status:Active Mother Name Dates Details Family history of malignant neoplasm of female breast(V16.3, Z80.3) Status:Active Family history of Alzheimer' s disease(V17.2, Z82.0) Status:Active Family history of malignant neoplasm(V16.9, Z80.9) Status:Active Family history of cardiac di sorder(V17.49, Z82.49) Status:Active Child Name Dates Details Family history of cystic fib rosis(V18.19, Z83.49) Status:Active Grandparent Name Dates Details Family history of cardiac di sorder(V17.49, Z82.49) Status:Active Family history of diabetes m ellitus(V18.0, Z83.3) Status:Active Mother Name Dates Details Family history of cardiac di sorder(V17.49, Z82.49) Status:Active Family history of malignant neoplasm(V16.9, Z80.9) Status:Active Family history of Alzheimer' s disease(V17.2, Z82.0) Status:Active Family history of malignant neoplasm of female breast(V16.3, Z80.3) Status:Active Child Name Dates Details Family history of cystic fib rosis(V18.19, Z83.49) Status:Active Grandparent Name Dates Details Family history of cardiac di sorder(V17.49, Z82.49) Status:Active Family history of diabetes m ellitus(V18.0, Z83.3) Status:Active Mother Name Dates Details Family history of malignant neoplasm of female breast(V16.3, Z80.3) Status:Active Family history of Alzheimer' s disease(V17.2, Z82.0) Status:Active Family history of malignant neoplasm(V16.9, Z80.9) Status:Active Family history of cardiac di sorder(V17.49, Z82.49) Status:Active Child Name Dates Details Family history of cystic fib rosis(V18.19, Z83.49) Status:Active Grandparent Name Dates Details Family history of cardiac di sorder(V17.49, Z82.49) Status:Active Family history of diabetes m ellitus(V18.0, Z83.3) Status:Active Mother Name Dates Details Family history of malignant neoplasm of female breast(V16.3, Z80.3) Status:Active Family history of Alzheimer' s disease(V17.2, Z82.0) Status:Active Family history of malignant neoplasm(V16.9, Z80.9) Status:Active Family history of cardiac di sorder(V17.49, Z82.49) Status:Active Child Name Dates Details Family history of cystic fib rosis(V18.19, Z83.49) Status:Active Grandparent Name Dates Details Family history of cardiac di sorder(V17.49, Z82.49) Status:Active Family history of diabetes m ellitus(V18.0, Z83.3) Status:Active Mother Name Dates Details Family history of malignant neoplasm of female breast(V16.3, Z80.3) Status:Active Family history of Alzheimer' s disease(V17.2, Z82.0) Status:Active Family history of malignant neoplasm(V16.9, Z80.9) Status:Active Family history of cardiac di sorder(V17.49, Z82.49) Status:Active Child Name Dates Details Family history of cystic fib rosis(V18.19, Z83.49) Status:Active Grandparent Name Dates Details Family history of cardiac di sorder(V17.49, Z82.49) Status:Active Family history of diabetes m ellitus(V18.0, Z83.3) Status:Active Mother Name Dates Details Family history of malignant neoplasm of female breast(V16.3, Z80.3) Status:Active Family history of Alzheimer' s disease(V17.2, Z82.0) Status:Active Family history of malignant neoplasm(V16.9, Z80.9) Status:Active Family history of cardiac di sorder(V17.49, Z82.49) Status:Active Child Name Dates Details Family history of cystic fib rosis(V18.19, Z83.49) Status:Active Grandparent Name Dates Details Family history of cardiac di sorder(V17.49, Z82.49) Status:Active Family history of diabetes m ellitus(V18.0, Z83.3) Status:Active Mother Name Dates Details Family history of malignant neoplasm of female breast(V16.3, Z80.3) Status:Active Family history of Alzheimer' s disease(V17.2, Z82.0) Status:Active Family history of malignant neoplasm(V16.9, Z80.9) Status:Active Family history of cardiac di sorder(V17.49, Z82.49) Status:Active Child Name Dates Details Family history of cystic fib rosis(V18.19, Z83.49) Status:Active Grandparent Name Dates Details Family history of cardiac di sorder(V17.49, Z82.49) Status:Active Family history of diabetes m ellitus(V18.0, Z83.3) Status:Active Mother Name Dates Details Family history of malignant neoplasm(V16.9, Z80.9) Status:Active Family history of cardiac di sorder(V17.49, Z82.49) Status:Active Family history of malignant neoplasm of female breast(V16.3, Z80.3) Status:Active Family history of Alzheimer' s disease(V17.2, Z82.0) Status:Active Child Name Dates Details Family history of cystic fib rosis(V18.19, Z83.49) Status:Active Grandparent Name Dates Details Family history of cardiac di sorder(V17.49, Z82.49) Status:Active Family history of diabetes m ellitus(V18.0, Z83.3) Status:Active Mother Name Dates Details Family history of malignant neoplasm of female breast(V16.3, Z80.3) Status:Active Family history of Alzheimer' s disease(V17.2, Z82.0) Status:Active Family history of malignant neoplasm(V16.9, Z80.9) Status:Active Family history of cardiac di sorder(V17.49, Z82.49) Status:Active Unknown Family Member Name Dates Details Family history of malignant neoplasm of female breast: Mother(V16.3, Z80.3) Status:Active Family history of Alzheimer' s disease: Mother(V17.2, Z82.0) Status:Active Family history of malignant neoplasm: Mother(V16.9, Z80.9) Comments:cervix; Status:Active Family history of cardiac di sorder: Mother, Grandparent(V17.49, Z82.49) Status:Active Family history of diabetes m ellitus: Grandparent(V18.0, Z83.3) Status:Active Family history of cystic fib rosis: Child(V18.19, Z83.49) Status:Active Unknown Family Member Name Dates Details Family history of malignant neoplasm of female breast: Mother(V16.3, Z80.3) Status:Active Family history of Alzheimer' s disease: Mother(V17.2, Z82.0) Status:Active Family history of malignant neoplasm: Mother(V16.9, Z80.9) Comments:cervix; Status:Active Family history of cardiac di sorder: Mother, Grandparent(V17.49, Z82.49) Status:Active Family history of diabetes m ellitus: Grandparent(V18.0, Z83.3) Status:Active Family history of cystic fib rosis: Child(V18.19, Z83.49) Status:Active Unknown Family Member Name Dates Details Family history of malignant neoplasm of female breast: Mother(V16.3, Z80.3) Status:Active Family history of Alzheimer' s disease: Mother(V17.2, Z82.0) Status:Active Family history of malignant neoplasm: Mother(V16.9, Z80.9) Comments:cervix; Status:Active Family history of cardiac di sorder: Mother, Grandparent(V17.49, Z82.49) Status:Active Family history of diabetes m ellitus: Grandparent(V18.0, Z83.3) Status:Active Family history of cystic fib rosis: Child(V18.19, Z83.49) Status:Active Unknown Family Member Name Dates Details Family history of malignant neoplasm of female breast: Mother(V16.3, Z80.3) Status:Active Family history of Alzheimer' s disease: Mother(V17.2, Z82.0) Status:Active Family history of malignant neoplasm: Mother(V16.9, Z80.9) Comments:cervix; Status:Active Family history of cardiac di sorder: Mother, Grandparent(V17.49, Z82.49) Status:Active Family history of diabetes m ellitus: Grandparent(V18.0, Z83.3) Status:Active Family history of cystic fib rosis: Child(V18.19, Z83.49) Status:Active Unknown Family Member Name Dates Details Family history of malignant neoplasm: Mother(V16.9, Z80.9) Comments:cervix; Status:Active Family history of cardiac di sorder: Mother, Grandparent(V17.49, Z82.49) Status:Active Family history of cystic fib rosis: Child(V18.19, Z83.49) Status:Active Family history of diabetes m ellitus: Grandparent(V18.0, Z83.3) Status:Active Family history of Alzheimer' s disease: Mother(V17.2, Z82.0) Status:Active Family history of malignant neoplasm of female breast: Mother(V16.3, Z80.3) Status:Active Unknown Family Member Name Dates Details Family history of malignant neoplasm of female breast: Mother(V16.3, Z80.3) Status:Active Family history of Alzheimer' s disease: Mother(V17.2, Z82.0) Status:Active Family history of malignant neoplasm: Mother(V16.9, Z80.9) Comments:cervix; Status:Active Family history of cardiac di sorder: Mother, Grandparent(V17.49, Z82.49) Status:Active Family history of diabetes m ellitus: Grandparent(V18.0, Z83.3) Status:Active Family history of cystic fib rosis: Child(V18.19, Z83.49) Status:Active Unknown Family Member Name Dates Details Family history of malignant neoplasm of female breast: Mother(V16.3, Z80.3) Status:Active Family history of Alzheimer' s disease: Mother(V17.2, Z82.0) Status:Active Family history of malignant neoplasm: Mother(V16.9, Z80.9) Comments:cervix; Status:Active Family history of cardiac di sorder: Mother, Grandparent(V17.49, Z82.49) Status:Active Family history of diabetes m ellitus: Grandparent(V18.0, Z83.3) Status:Active Family history of cystic fib rosis: Child(V18.19, Z83.49) Status:Active Unknown Family Member Name Dates Details Family history of malignant neoplasm of female breast: Mother(V16.3, Z80.3) Status:Active Family history of Alzheimer' s disease: Mother(V17.2, Z82.0) Status:Active Family history of malignant neoplasm: Mother(V16.9, Z80.9) Comments:cervix; Status:Active Family history of cardiac di sorder: Mother, Grandparent(V17.49, Z82.49) Status:Active Family history of diabetes m ellitus: Grandparent(V18.0, Z83.3) Status:Active Family history of cystic fib rosis: Child(V18.19, Z83.49) Status:Active Unknown Family Member Name Dates Details Family history of malignant neoplasm of female breast: Mother(V16.3, Z80.3) Status:Active Family history of Alzheimer' s disease: Mother(V17.2, Z82.0) Status:Active Family history of malignant neoplasm: Mother(V16.9, Z80.9) Comments:cervix; Status:Active Family history of cardiac di sorder: Mother, Grandparent(V17.49, Z82.49) Status:Active Family history of diabetes m ellitus: Grandparent(V18.0, Z83.3) Status:Active Family history of cystic fib rosis: Child(V18.19, Z83.49) Status:Active Unknown Family Member Name Dates Details Family history of malignant neoplasm of female breast: Mother(V16.3, Z80.3) Status:Active Family history of Alzheimer' s disease: Mother(V17.2, Z82.0) Status:Active Family history of malignant neoplasm: Mother(V16.9, Z80.9) Comments:cervix; Status:Active Family history of cardiac di sorder: Mother, Grandparent(V17.49, Z82.49) Status:Active Family history of diabetes m ellitus: Grandparent(V18.0, Z83.3) Status:Active Family history of cystic fib rosis: Child(V18.19, Z83.49) Status:Active Unknown Family Member Name Dates Details Family history of malignant neoplasm of female breast: Mother(V16.3, Z80.3) Status:Active Family history of Alzheimer' s disease: Mother(V17.2, Z82.0) Status:Active Family history of malignant neoplasm: Mother(V16.9, Z80.9) Comments:cervix; Status:Active Family history of cardiac di sorder: Mother, Grandparent(V17.49, Z82.49) Status:Active Family history of diabetes m ellitus: Grandparent(V18.0, Z83.3) Status:Active Family history of cystic fib rosis: Child(V18.19, Z83.49) Status:Active Unknown Family Member Name Dates Details Family history of malignant neoplasm of female breast: Mother(V16.3, Z80.3) Status:Active Family history of Alzheimer' s disease: Mother(V17.2, Z82.0) Status:Active Family history of malignant neoplasm: Mother(V16.9, Z80.9) Comments:cervix; Status:Active Family history of cardiac di sorder: Mother, Grandparent(V17.49, Z82.49) Status:Active Family history of diabetes m ellitus: Grandparent(V18.0, Z83.3) Status:Active Family history of cystic fib rosis: Child(V18.19, Z83.49) Status:Active Unknown Family Member Name Dates Details Family history of malignant neoplasm of female breast: Mother(V16.3, Z80.3) Status:Active Family history of Alzheimer' s disease: Mother(V17.2, Z82.0) Status:Active Family history of malignant neoplasm: Mother(V16.9, Z80.9) Comments:cervix; Status:Active Family history of cardiac di sorder: Mother, Grandparent(V17.49, Z82.49) Status:Active Family history of diabetes m ellitus: Grandparent(V18.0, Z83.3) Status:Active Family history of cystic fib rosis: Child(V18.19, Z83.49) Status:Active Unknown Family Member Name Dates Details Family history of malignant neoplasm of female breast: Mother(V16.3, Z80.3) Status:Active Family history of Alzheimer' s disease: Mother(V17.2, Z82.0) Status:Active Family history of malignant neoplasm: Mother(V16.9, Z80.9) Comments:cervix; Status:Active Family history of cardiac di sorder: Mother, Grandparent(V17.49, Z82.49) Status:Active Family history of diabetes m ellitus: Grandparent(V18.0, Z83.3) Status:Active Family history of cystic fib rosis: Child(V18.19, Z83.49) Status:Active Unknown Family Member Name Dates Details Family history of malignant neoplasm of female breast: Mother(V16.3, Z80.3) Status:Active Family history of Alzheimer' s disease: Mother(V17.2, Z82.0) Status:Active Family history of malignant neoplasm: Mother(V16.9, Z80.9) Comments:cervix; Status:Active Family history of cardiac di sorder: Mother, Grandparent(V17.49, Z82.49) Status:Active Family history of diabetes m ellitus: Grandparent(V18.0, Z83.3) Status:Active Family history of cystic fib rosis: Child(V18.19, Z83.49) Status:Active Unknown Family Member Name Dates Details Family history of malignant neoplasm of female breast: Mother(V16.3, Z80.3) Status:Active Family history of Alzheimer' s disease: Mother(V17.2, Z82.0) Status:Active Family history of malignant neoplasm: Mother(V16.9, Z80.9) Comments:cervix; Status:Active Family history of cardiac di sorder: Mother, Grandparent(V17.49, Z82.49) Status:Active Family history of diabetes m ellitus: Grandparent(V18.0, Z83.3) Status:Active Family history of cystic fib rosis: Child(V18.19, Z83.49) Status:Active Unknown Family Member Name Dates Details Family history of malignant neoplasm: Mother(V16.9, Z80.9) Comments:cervix; Status:Active Family history of cardiac di sorder: Mother, Grandparent(V17.49, Z82.49) Status:Active Family history of diabetes m ellitus: Grandparent(V18.0, Z83.3) Status:Active Family history of cystic fib rosis: Child(V18.19, Z83.49) Status:Active Family history of Alzheimer' s disease: Mother(V17.2, Z82.0) Status:Active Family history of malignant neoplasm of female breast: Mother(V16.3, Z80.3) Status:Active Unknown Family Member Name Dates Details Family history of malignant neoplasm: Mother(V16.9, Z80.9) Comments:cervix; Status:Active Family history of cardiac di sorder: Mother, Grandparent(V17.49, Z82.49) Status:Active Family history of cystic fib rosis: Child(V18.19, Z83.49) Status:Active Family history of diabetes m ellitus: Grandparent(V18.0, Z83.3) Status:Active Family history of Alzheimer' s disease: Mother(V17.2, Z82.0) Status:Active Family history of malignant neoplasm of female breast: Mother(V16.3, Z80.3) Status:Active Unknown Family Member Name Dates Details Family history of malignant neoplasm of female breast: Mother(V16.3, Z80.3) Status:Active Family history of Alzheimer' s disease: Mother(V17.2, Z82.0) Status:Active Family history of malignant neoplasm: Mother(V16.9, Z80.9) Comments:cervix; Status:Active Family history of cardiac di sorder: Mother, Grandparent(V17.49, Z82.49) Status:Active Family history of diabetes m ellitus: Grandparent(V18.0, Z83.3) Status:Active Family history of cystic fib rosis: Child(V18.19, Z83.49) Status:Active Unknown Family Member Name Dates Details Family history of malignant neoplasm: Mother(V16.9, Z80.9) Comments:cervix; Status:Active Family history of cardiac di sorder: Mother, Grandparent(V17.49, Z82.49) Status:Active Family history of diabetes m ellitus: Grandparent(V18.0, Z83.3) Status:Active Family history of cystic fib rosis: Child(V18.19, Z83.49) Status:Active Family history of Alzheimer' s disease: Mother(V17.2, Z82.0) Status:Active Family history of malignant neoplasm of female breast: Mother(V16.3, Z80.3) Status:Active Unknown Family Member Name Dates Details Family history of malignant neoplasm of female breast: Mother(V16.3, Z80.3) Status:Active Family history of Alzheimer' s disease: Mother(V17.2, Z82.0) Status:Active Family history of malignant neoplasm: Mother(V16.9, Z80.9) Comments:cervix; Status:Active Family history of cardiac di sorder: Mother, Grandparent(V17.49, Z82.49) Status:Active Family history of diabetes m ellitus: Grandparent(V18.0, Z83.3) Status:Active Family history of cystic fib rosis: Child(V18.19, Z83.49) Status:Active Unknown Family Member Name Dates Details Family history of malignant neoplasm of female breast: Mother(V16.3, Z80.3) Status:Active Family history of Alzheimer' s disease: Mother(V17.2, Z82.0) Status:Active Family history of malignant neoplasm: Mother(V16.9, Z80.9) Comments:cervix; Status:Active Family history of cardiac di sorder: Mother, Grandparent(V17.49, Z82.49) Status:Active Family history of diabetes m ellitus: Grandparent(V18.0, Z83.3) Status:Active Family history of cystic fib rosis: Child(V18.19, Z83.49) Status:Active Unknown Family Member Name Dates Details Family history of malignant neoplasm of female breast: Mother(V16.3, Z80.3) Status:Active Family history of Alzheimer' s disease: Mother(V17.2, Z82.0) Status:Active Family history of malignant neoplasm: Mother(V16.9, Z80.9) Comments:cervix; Status:Active Family history of cardiac di sorder: Mother, Grandparent(V17.49, Z82.49) Status:Active Family history of diabetes m ellitus: Grandparent(V18.0, Z83.3) Status:Active Family history of cystic fib rosis: Child(V18.19, Z83.49) Status:Active Unknown Family Member Name Dates Details Family history of malignant neoplasm of female breast: Mother(V16.3, Z80.3) Status:Active Family history of Alzheimer' s disease: Mother(V17.2, Z82.0) Status:Active Family history of malignant neoplasm: Mother(V16.9, Z80.9) Comments:cervix; Status:Active Family history of cardiac di sorder: Mother, Grandparent(V17.49, Z82.49) Status:Active Family history of diabetes m ellitus: Grandparent(V18.0, Z83.3) Status:Active Family history of cystic fib rosis: Child(V18.19, Z83.49) Status:Active Unknown Family Member Name Dates Details Family history of malignant neoplasm of female breast: Mother(V16.3, Z80.3) Status:Active Family history of Alzheimer' s disease: Mother(V17.2, Z82.0) Status:Active Family history of malignant neoplasm: Mother(V16.9, Z80.9) Comments:cervix; Status:Active Family history of cardiac di sorder: Mother, Grandparent(V17.49, Z82.49) Status:Active Family history of diabetes m ellitus: Grandparent(V18.0, Z83.3) Status:Active Family history of cystic fib rosis: Child(V18.19, Z83.49) Status:Active Unknown Family Member Name Dates Details Family history of malignant neoplasm of female breast: Mother(V16.3, Z80.3) Status:Active Family history of Alzheimer' s disease: Mother(V17.2, Z82.0) Status:Active Family history of malignant neoplasm: Mother(V16.9, Z80.9) Comments:cervix; Status:Active Family history of cardiac di sorder: Mother, Grandparent(V17.49, Z82.49) Status:Active Family history of diabetes m ellitus: Grandparent(V18.0, Z83.3) Status:Active Family history of cystic fib rosis: Child(V18.19, Z83.49) Status:Active Unknown Family Member Name Dates Details Family history of malignant neoplasm of female breast: Mother(V16.3, Z80.3) Status:Active Family history of Alzheimer' s disease: Mother(V17.2, Z82.0) Status:Active Family history of malignant neoplasm: Mother(V16.9, Z80.9) Comments:cervix; Status:Active Family history of cardiac di sorder: Mother, Grandparent(V17.49, Z82.49) Status:Active Family history of diabetes m ellitus: Grandparent(V18.0, Z83.3) Status:Active Family history of cystic fib rosis: Child(V18.19, Z83.49) Status:Active Unknown Family Member Name Dates Details Family history of malignant neoplasm of female breast: Mother(V16.3, Z80.3) Status:Active Family history of Alzheimer' s disease: Mother(V17.2, Z82.0) Status:Active Family history of cardiac di sorder: Mother, Grandparent(V17.49, Z82.49) Status:Active Family history of malignant neoplasm: Mother(V16.9, Z80.9) Comments:cervix; Status:Active Family history of diabetes m ellitus: Grandparent(V18.0, Z83.3) Status:Active Family history of cystic fib rosis: Child(V18.19, Z83.49) Status:Active Unknown Family Member Name Dates Details Family history of malignant neoplasm of female breast: Mother(V16.3, Z80.3) Status:Active Family history of Alzheimer' s disease: Mother(V17.2, Z82.0) Status:Active Family history of cardiac di sorder: Mother, Grandparent(V17.49, Z82.49) Status:Active Family history of malignant neoplasm: Mother(V16.9, Z80.9) Comments:cervix; Status:Active Family history of diabetes m ellitus: Grandparent(V18.0, Z83.3) Status:Active Family history of cystic fib rosis: Child(V18.19, Z83.49) Status:Active Unknown Family Member Name Dates Details Family history of malignant neoplasm of female breast: Mother(V16.3, Z80.3) Status:Active Family history of Alzheimer' s disease: Mother(V17.2, Z82.0) Status:Active Family history of malignant neoplasm: Mother(V16.9, Z80.9) Comments:cervix; Status:Active Family history of cardiac di sorder: Mother, Grandparent(V17.49, Z82.49) Status:Active Family history of diabetes m ellitus: Grandparent(V18.0, Z83.3) Status:Active Family history of cystic fib rosis: Child(V18.19, Z83.49) Status:Active Unknown Family Member Name Dates Details Family history of malignant neoplasm of female breast: Mother(V16.3, Z80.3) Status:Active Family history of Alzheimer' s disease: Mother(V17.2, Z82.0) Status:Active Family history of malignant neoplasm: Mother(V16.9, Z80.9) Comments:cervix; Status:Active Family history of cardiac di sorder: Mother, Grandparent(V17.49, Z82.49) Status:Active Family history of diabetes m ellitus: Grandparent(V18.0, Z83.3) Status:Active Family history of cystic fib rosis: Child(V18.19, Z83.49) Status:Active Unknown Family Member Name Dates Details Family history of cystic fib rosis: Child(V18.19, Z83.49) Status:Active Family history of diabetes m ellitus: Grandparent(V18.0, Z83.3) Status:Active Family history of cardiac di sorder: Mother, Grandparent(V17.49, Z82.49) Status:Active Family history of malignant neoplasm: Mother(V16.9, Z80.9) Comments:cervix; Status:Active Family history of Alzheimer' s disease: Mother(V17.2, Z82.0) Status:Active Family history of malignant neoplasm of female breast: Mother(V16.3, Z80.3) Status:Active Unknown Family Member Name Dates Details Family history of malignant neoplasm of female breast: Mother(V16.3, Z80.3) Status:Active Family history of Alzheimer' s disease: Mother(V17.2, Z82.0) Status:Active Family history of malignant neoplasm: Mother(V16.9, Z80.9) Comments:cervix; Status:Active Family history of cardiac di sorder: Mother, Grandparent(V17.49, Z82.49) Status:Active Family history of diabetes m ellitus: Grandparent(V18.0, Z83.3) Status:Active Family history of cystic fib rosis: Child(V18.19, Z83.49) Status:Active Unknown Family Member Name Dates Details Family history of malignant neoplasm of female breast: Mother(V16.3, Z80.3) Status:Active Family history of Alzheimer' s disease: Mother(V17.2, Z82.0) Status:Active Family history of cardiac di sorder: Mother, Grandparent(V17.49, Z82.49) Status:Active Family history of malignant neoplasm: Mother(V16.9, Z80.9) Comments:cervix; Status:Active Family history of diabetes m ellitus: Grandparent(V18.0, Z83.3) Status:Active Family history of cystic fib rosis: Child(V18.19, Z83.49) Status:Active Unknown Family Member Name Dates Details Family history of malignant neoplasm of female breast: Mother(V16.3, Z80.3) Status:Active Family history of Alzheimer' s disease: Mother(V17.2, Z82.0) Status:Active Family history of malignant neoplasm: Mother(V16.9, Z80.9) Comments:cervix; Status:Active Family history of cardiac di sorder: Mother, Grandparent(V17.49, Z82.49) Status:Active Family history of diabetes m ellitus: Grandparent(V18.0, Z83.3) Status:Active Family history of cystic fib rosis: Child(V18.19, Z83.49) Status:Active Unknown Family Member Name Dates Details Family history of diabetes m ellitus: Grandparent(V18.0, Z83.3) Status:Active Family history of cystic fib rosis: Child(V18.19, Z83.49) Status:Active Family history of cardiac di sorder: Mother, Grandparent(V17.49, Z82.49) Status:Active Family history of malignant neoplasm: Mother(V16.9, Z80.9) Comments:cervix; Status:Active Family history of Alzheimer' s disease: Mother(V17.2, Z82.0) Status:Active Family history of malignant neoplasm of female breast: Mother(V16.3, Z80.3) Status:Active Unknown Family Member Name Dates Details Family history of malignant neoplasm of female breast: Mother(V16.3, Z80.3) Status:Active Family history of Alzheimer' s disease: Mother(V17.2, Z82.0) Status:Active Family history of malignant neoplasm: Mother(V16.9, Z80.9) Comments:cervix; Status:Active Family history of cardiac di sorder: Mother, Grandparent(V17.49, Z82.49) Status:Active Family history of diabetes m ellitus: Grandparent(V18.0, Z83.3) Status:Active Family history of cystic fib rosis: Child(V18.19, Z83.49) Status:Active Unknown Family Member Name Dates Details Family history of malignant neoplasm of female breast: Mother(V16.3, Z80.3) Status:Active Family history of Alzheimer' s disease: Mother(V17.2, Z82.0) Status:Active Family history of malignant neoplasm: Mother(V16.9, Z80.9) Comments:cervix; Status:Active Family history of cardiac di sorder: Mother, Grandparent(V17.49, Z82.49) Status:Active Family history of diabetes m ellitus: Grandparent(V18.0, Z83.3) Status:Active Family history of cystic fib rosis: Child(V18.19, Z83.49) Status:Active Unknown Family Member Name Dates Details Family history of malignant neoplasm of female breast: Mother(V16.3, Z80.3) Status:Active Family history of Alzheimer' s disease: Mother(V17.2, Z82.0) Status:Active Family history of malignant neoplasm: Mother(V16.9, Z80.9) Comments:cervix; Status:Active Family history of cardiac di sorder: Mother, Grandparent(V17.49, Z82.49) Status:Active Family history of diabetes m ellitus: Grandparent(V18.0, Z83.3) Status:Active Family history of cystic fib rosis: Child(V18.19, Z83.49) Status:Active Unknown Family Member Name Dates Details Family history of malignant neoplasm of female breast: Mother(V16.3, Z80.3) Status:Active Family history of Alzheimer' s disease: Mother(V17.2, Z82.0) Status:Active Family history of malignant neoplasm: Mother(V16.9, Z80.9) Comments:cervix; Status:Active Family history of cardiac di sorder: Mother, Grandparent(V17.49, Z82.49) Status:Active Family history of diabetes m ellitus: Grandparent(V18.0, Z83.3) Status:Active Family history of cystic fib rosis: Child(V18.19, Z83.49) Status:Active Unknown Family Member Name Dates Details Family history of malignant neoplasm of female breast: Mother(V16.3, Z80.3) Status:Active Family history of Alzheimer' s disease: Mother(V17.2, Z82.0) Status:Active Family history of malignant neoplasm: Mother(V16.9, Z80.9) Comments:cervix; Status:Active Family history of cardiac di sorder: Mother, Grandparent(V17.49, Z82.49) Status:Active Family history of diabetes m ellitus: Grandparent(V18.0, Z83.3) Status:Active Family history of cystic fib rosis: Child(V18.19, Z83.49) Status:Active Unknown Family Member Name Dates Details Family history of malignant neoplasm of female breast: Mother(V16.3, Z80.3) Status:Active Family history of Alzheimer' s disease: Mother(V17.2, Z82.0) Status:Active Family history of malignant neoplasm: Mother(V16.9, Z80.9) Comments:cervix; Status:Active Family history of cardiac di sorder: Mother, Grandparent(V17.49, Z82.49) Status:Active Family history of diabetes m ellitus: Grandparent(V18.0, Z83.3) Status:Active Family history of cystic fib rosis: Child(V18.19, Z83.49) Status:Active Unknown Family Member Name Dates Details Family history of diabetes m ellitus: Grandparent(V18.0, Z83.3) Status:Active Family history of cystic fib rosis: Child(V18.19, Z83.49) Status:Active Family history of cardiac di sorder: Mother, Grandparent(V17.49, Z82.49) Status:Active Family history of malignant neoplasm: Mother(V16.9, Z80.9) Comments:cervix; Status:Active Family history of Alzheimer' s disease: Mother(V17.2, Z82.0) Status:Active Family history of malignant neoplasm of female breast: Mother(V16.3, Z80.3) Status:Active Unknown Family Member Name Dates Details Family history of malignant neoplasm of female breast: Mother(V16.3, Z80.3) Status:Active Family history of Alzheimer' s disease: Mother(V17.2, Z82.0) Status:Active Family history of malignant neoplasm: Mother(V16.9, Z80.9) Comments:cervix; Status:Active Family history of cardiac di sorder: Mother, Grandparent(V17.49, Z82.49) Status:Active Family history of diabetes m ellitus: Grandparent(V18.0, Z83.3) Status:Active Family history of cystic fib rosis: Child(V18.19, Z83.49) Status:Active Unknown Family Member Name Dates Details Family history of malignant neoplasm of female breast: Mother(V16.3, Z80.3) Status:Active Family history of Alzheimer' s disease: Mother(V17.2, Z82.0) Status:Active Family history of malignant neoplasm: Mother(V16.9, Z80.9) Comments:cervix; Status:Active Family history of cardiac di sorder: Mother, Grandparent(V17.49, Z82.49) Status:Active Family history of diabetes m ellitus: Grandparent(V18.0, Z83.3) Status:Active Family history of cystic fib rosis: Child(V18.19, Z83.49) Status:Active Unknown Family Member Name Dates Details Family history of malignant neoplasm of female breast: Mother(V16.3, Z80.3) Status:Active Family history of Alzheimer' s disease: Mother(V17.2, Z82.0) Status:Active Family history of malignant neoplasm: Mother(V16.9, Z80.9) Comments:cervix; Status:Active Family history of cardiac di sorder: Mother, Grandparent(V17.49, Z82.49) Status:Active Family history of diabetes m ellitus: Grandparent(V18.0, Z83.3) Status:Active Family history of cystic fib rosis: Child(V18.19, Z83.49) Status:Active Unknown Family Member Name Dates Details Family history of malignant neoplasm of female breast: Mother(V16.3, Z80.3) Status:Active Family history of Alzheimer' s disease: Mother(V17.2, Z82.0) Status:Active Family history of malignant neoplasm: Mother(V16.9, Z80.9) Comments:cervix; Status:Active Family history of cardiac di sorder: Mother, Grandparent(V17.49, Z82.49) Status:Active Family history of diabetes m ellitus: Grandparent(V18.0, Z83.3) Status:Active Family history of cystic fib rosis: Child(V18.19, Z83.49) Status:Active Unknown Family Member Name Dates Details Family history of malignant neoplasm of female breast: Mother(V16.3, Z80.3) Status:Active Family history of Alzheimer' s disease: Mother(V17.2, Z82.0) Status:Active Family history of malignant neoplasm: Mother(V16.9, Z80.9) Comments:cervix; Status:Active Family history of cardiac di sorder: Mother, Grandparent(V17.49, Z82.49) Status:Active Family history of diabetes m ellitus: Grandparent(V18.0, Z83.3) Status:Active Family history of cystic fib rosis: Child(V18.19, Z83.49) Status:Active Unknown Family Member Name Dates Details Family history of malignant neoplasm of female breast: Mother(V16.3, Z80.3) Status:Active Family history of Alzheimer' s disease: Mother(V17.2, Z82.0) Status:Active Family history of malignant neoplasm: Mother(V16.9, Z80.9) Comments:cervix; Status:Active Family history of cardiac di sorder: Mother, Grandparent(V17.49, Z82.49) Status:Active Family history of diabetes m ellitus: Grandparent(V18.0, Z83.3) Status:Active Family history of cystic fib rosis: Child(V18.19, Z83.49) Status:Active Unknown Family Member Name Dates Details Family history of malignant neoplasm of female breast: Mother(V16.3, Z80.3) Status:Active Family history of Alzheimer' s disease: Mother(V17.2, Z82.0) Status:Active Family history of malignant neoplasm: Mother(V16.9, Z80.9) Comments:cervix; Status:Active Family history of cardiac di sorder: Mother, Grandparent(V17.49, Z82.49) Status:Active Family history of diabetes m ellitus: Grandparent(V18.0, Z83.3) Status:Active Family history of cystic fib rosis: Child(V18.19, Z83.49) Status:Active Unknown Family Member Name Dates Details Family history of malignant neoplasm of female breast: Mother(V16.3, Z80.3) Status:Active Family history of Alzheimer' s disease: Mother(V17.2, Z82.0) Status:Active Family history of malignant neoplasm: Mother(V16.9, Z80.9) Comments:cervix; Status:Active Family history of cardiac di sorder: Mother, Grandparent(V17.49, Z82.49) Status:Active Family history of diabetes m ellitus: Grandparent(V18.0, Z83.3) Status:Active Family history of cystic fib rosis: Child(V18.19, Z83.49) Status:Active Relationship Condition Age at Onset Recorded Date/T [place] mother Alzheimer's dementia Unknown Malignant neoplasm of breast Unknown Cardiac disease Unknown brother Cystic fibrosis Unknown Advance Directives No Advanced Directives Records Found Date Activated Date Inactivated Comments 10/10/2023 6:46 AM Question Answer Comments Plan of Care: Code Status Discussion Completed Decision Maker: Patient Date Activated Date Inactivated Comments 10/10/2023 5:22 AM 10/10/2023 6:46 AM Question Answer Comments Plan of Care: Code Status Discussion Completed Decision Maker: Patient Date Activated Date Inactivated Comments 11/19/2023 4:00 PM Date Activated Date Inactivated Comments 11/15/2023 10:07 PM 11/19/2023 4:00 PM Date Activated Date Inactivated Comments 11/14/2023 12:42 PM 11/15/2023 10:07 PM Question Answer Comments Plan of Care: Code Status Discussion Completed Decision Maker: Patient For 24 hours ONL Y post op Date Activated Date Inactivated Comments 11/09/2023 2:17 AM 11/14/2023 12:42 PM Question Answer Comments Plan of Care: Code Status Discussion Completed Decision Maker: Patient Date Activated Date Inactivated Comments 11/06/2023 4:39 PM 11/09/2023 2:17 AM Question Answer Comments Plan of Care: Code Status Discussion Completed Decision Maker: Patient Date Activated Date Inactivated Comments 11/19/2023 4:00 PM Question Answer Comments Plan of Care: Code Status Discussion Completed Decision Maker: Patient Date Activated Date Inactivated Comments 11/15/2023 10:07 PM 11/19/2023 4:00 PM Question Answer Comments Plan of Care: Code Status Discussion Completed Decision Maker: Patient Date Activated Date Inactivated Comments 11/14/2023 12:42 PM 11/15/2023 10:07 PM Question Answer Comments Plan of Care: Code Status Discussion Completed Decision Maker: Patient For 24 hours ONL Y post op Date Activated Date Inactivated Comments 11/09/2023 2:17 AM 11/14/2023 12:42 PM Question Answer Comments Plan of Care: Code Status Discussion Completed Decision Maker: Patient Date Activated Date Inactivated Comments 11/06/2023 4:39 PM 11/09/2023 2:17 AM Question Answer Comments Plan of Care: Code Status Discussion Completed Decision Maker: Patient Advance Directive Response Recorded Date/ Time Living Will Yes March 28 11:57am Power of Manager Of Organizational Development Yes March 28, 2024 11:57am Name of Medical Power of Manager Of Organizational Development eva barrientos March 28, 2024 11:57am Advance Directive Response Recorded Date/ Time Living Will Yes March 28 12:57pm Do you have a Healthcare Pow er of Manager Of Organizational Development? Yes March 28, 2024 12:57pm Name of Medical Power of Manager Of Organizational Development eva barrientos March 28, 2024 12:57pm Living Will No June 30, 2024 11:18am Do you have a Healthcare Pow er of Manager Of Organizational Development? Yes June 30, 2024 11:18am Name of Medical Power of Manager Of Organizational Development AGUSTIN June 30, 2024 11:18am Advance Directive Response Recorded Date/ Time Living Will No June 30, 2024 11:18am Do you have a Healthcare Power of Manager Of Organizational Development? Yes June 30, 2024 11:18am Name of Medical Power of Manager Of Organizational Development AGUSTIN June 30, 2024 11:18am Chief Complaint medck* A telephone visit (audio only) between the patient (at the originating site) and the provider (at the distant site) was utilized to provide this telehealth service. * Atrial fibrillation * A telephone visit (audio only) between the patient (at the originating site) and the provider (at the distant site) was utilized to provide this telehealth service. * Verbal consent was requested and obtained from DARYN SHAH on this date, 06/09/2021 01:00 PM , for a telehealth visit. * medck * A telephone visit (audio only) between the patient (at the originating site) and the provider (at the distant site) was utilized to provide this telehealth service. * Verbal consent was requested and obtained from DARYN SHAH on this date, 06/09/2021 01:00 PM , for a telehealth visit. * medck medckLongstanding persistent atrial fibrillationmedck and AWV Reason for Referral Specialty Diagnoses / Procedures Referred By Contac t Referred To Contact Radiology Diagnoses Lung mass Malignant neoplasm of unspecified part of unspecified bronchus or lung (Multi) Procedures NM [place] [address] [facility] [place] [id number] Referral ID Status Reason Start Date Expiration Date Visits Requested Visits Authorized [id number] Pending Review Perform Procedure 11/20/2023 11/19/2024 3 3 Specialty Diagnoses / Procedures Referred By Contac t Referred To Contact Pulmonary Disease / Pulmonology [place] [address] [place] [address] Referral ID Status Reason Start Date Expiration Date Visits Requested Visits Authorized [id number] Authorized Specialty Services Required 11/20/2023 11/19/2024 1 1 Specialty Diagnoses / Procedures Referred By Contac t Referred To Contact Radiology Diagnoses Vertebral osteomyelitis (Multi) Discitis, unspecified, thoracic region Procedures NM PET CT bone skull base to [place] [address] [place] [id number] Referral ID Status Reason Start Date Expiration Date Visits Requested Visits Authorized [id number] Pending Review Perform Procedure 12/27/2023 12/26/2024 3 3 Chief Complaint and Reason for Visit Chief Complaint Admit Date HALFWAY LAB WORK February 26 4:00am HAL[facility] LAB WORK March 28 4:00am abnormal labs March 28, 2024 11:52am HAL[facility] LAB WORK April 03 5:00am HALFW[facility] LAB WORK April 07 5:00am HALFW[facility] LAB WORK April 14, 2024 5:00am Anemia April 28, 2024 1 0:28am [facility] LAB WORK May 12, 2024 7:20am HAL[facility] LAB WORK May 27 4:00am LABOWRK June 02, 2024 5:00am HALFW[facility] LAB WORK June 03 4:00am LABWORK June 04, 2024 5:00am Reason for Visit Admit Date Anemia April 28, 2024 1 0:28am Chief Complaint Admit Date HALFWAY LAB WORK March 28 4:00am abnormal labs March 28, 2024 11:52am HALFW[facility] LAB WORK April 03 5:00am HALFWAY LAB WORK April 07 5:00am HALFWAY LAB WORK April 14, 2024 5:00am Anemia April 28, 2024 1 0:28am HALFWAY LAB WORK May 12, 2024 7:20am HALFWAY LAB WORK May 27 4:00am LABOWRK June 02, 2024 5:00am HALFWAY LAB WORK June 03 4:00am LABWORK June 04, 2024 5:00am Reason for Visit Admit Date Anemia April 28, 2024 1 0:28am Anemia July 01, 2024 11: 19am Chief Complaint Admit Date HALFWAY LAB WORK March 28 4:00am abnormal labs March 28, 2024 11:52am HALFWAY LAB WORK April 03 5:00am HALFWAY LAB WORK April 07 5:00am HALFWAY LAB WORK April 14, 2024 5:00am Anemia April 28, 2024 1 0:28am HALFWAY LAB WORK May 12, 2024 7:20am HALFWAY LAB WORK May 27 4:00am LABOWRK June 02, 2024 5:00am HALFWAY LAB WORK June 03 4:00am LABWORK June 04, 2024 5:00am HALFWAY LAB WORK June 24, 2024 5 :00am Chief Complaint Admit Date Anemia April 28, 2024 1 0:28am HALFWAY LAB WORK May 12, 2024 7:20am HALFWAY LAB WORK May 27 4:00am LABOWRK June 02, 2024 5:00am HALFWAY LAB WORK June 03 4:00am LABWORK June 04, 2024 5:00am HALFWAY LAB WORK June 24, 2024 5 :00am HALFWAY LAB WORK July 22, 2024 5 :00am AFIB, CHF, HTN (APRIL PAULINO) July 10:52am Test Result July 31, 2024 8:5 2am CHF August 13, 2024 8:06am Congestive heart failure August 13, 2024 1 0:41am Reason for Visit Admit Date Anemia April 28, 2024 1 0:28am Anemia July 01, 2024 11: 19am A-fib July 23, 2024 10: 52am Chronic HFrEF (heart failure with reduced ejection fraction) July 23, 2024 10:52am Diabetes July 23, 2024 10: 52am Hypertension July 23, 2024 10: 52am Anemia July 31, 2024 8:5 2am Gastric ulcer July 31, 2024 8:5 2am Additional Source Comments INFORMATION SOURCE (unrecogn ized section and content) DATE CREATED AUTHOR 11/12/2018 [facility] DATE CREATED AUTHOR AUTHOR'S ORGANIZ ATION 10/24/2020 [facility] DATE CREATED AUTHOR AUTHOR'S ORGANIZ ATION 06/05/2022 [employer] DATE CREATED AUTHOR AUTHOR'S ORGANIZ ATION 09/30/2022 [facility] DATE CREATED AUTHOR AUTHOR'S ORGANIZ ATION 11/15/2023 [facility] DATE CREATED AUTHOR AUTHOR'S ORGANIZ ATION 11/17/2023 [facility] DATE CREATED AUTHOR AUTHOR'S ORGANIZ ATION 03/02/2024 [facility] DATE CREATED AUTHOR AUTHOR'S ORGANIZ ATION 07/16/2024 [facility] DATE CREATED AUTHOR AUTHOR'S ORGANIZ ATION 09/06/2024 [facility] Reason for Visit (unrecogniz ed section and content) Reason Comments Follow-up Was in hospital for uti, developed C. 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, without long-term current use of insulin ([facility]) Procedures Follow Up In Primary Care Huan Mcdaniel MD [address] [facility], [place] [address] Referral ID Status Reason Start Date Expiration Date V isits Requested Visits Authorized [id number] Authorized 08/31/2022 02/27/2023 1 1 Reason Comments Med Management Increased depression Reason Comments Follow-up Specialty Diagnoses / Procedures Referred By Contac t Referred To Contact 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, managed as type 2 (CMS/HCC) Procedures Follow Up In Primary Care - Established Huan Mcdaniel MD [address] [facility], [place] [address] [place] [phone] Referral ID Status Reason Start Date Expiration Date V isits Requested Visits Authorized [id number] Authorized 03/13/2023 03/12/2024 1 1 Reason Comments Foot Injury Dropped a soup can o nto her right foot. +swelling. Able to move toes. Reason Comments Follow-up ER for right foot co ntusion Reason Comments Atrial Fibrillation Specialty Diagnoses / Procedures Referred By Contac t Referred To Contact Pharmacy Diagnoses Persistent atrial fibrillation (Multi) Marleen Sigala, MONEY COUNTER-SUPPLY CHAIN ASSOCIATE, DNP [address] [facility], [address] [place] [phone] [facility] [place] [address] Referral ID Status Reason Start Date Expiration Date Visits Requested Visits Authorized [id number] Authorized Specialty Services Required 07/20/2023 07/19/2024 1 1 Reason Comments Med Management Specialty Diagnoses / Procedures Referred By Contac t Referred To Contact Primary Care Diagnoses Chronic atrial fibrillation (Multi) Procedures Follow Up In Primary Care - Established Huan Mcdaniel MD [address] [facility], [place] [address] [place] [phone] Referral ID Status Reason Start Date Expiration Date V isits Requested Visits Authorized [id number] Authorized 05/21/2023 05/20/2024 1 1 Reason Comments Post-op Patient is here toda y for a post op visit. She has c/o mid back pain that she describes as an intermittent aching. Reason Comments Back Pain Pt has been having l ower back pain and has had increased weakness this week Specialty Diagnoses / Procedures Referred By Akiko delgado Referred To Contact Diagnoses Hyponatremia Procedures Renetta Moseley MD [address] [place] [address] [facility] [address] [place] [phone] Referral ID Status Reason Start Date Expiration Date Visits Re quested Visits Authorized [id number] 1 1 Reason Comments Post-op Pt has complaints of back pain where her roberta are that's described as a intermittent aching. Care Teams (unrecognized sec tion and content) Rib Cloth Knitter Relationship Specialty Start Date End Date Huan Mcdaniel MD [address] [facility], [facility] [address] [place] [phone] PCP - General 12/10/18 Huan Mcdaniel MD [address] [facility] [place] [phone] PCP - [employer] Advantage PCP 10/07/21 Diana Marcano MA Range ExaminerCardiopulmonary Technologist Chief 10/11/22 Rib Cloth Knitter Relationship Specialty Start Date End Date Huan Mcdaniel MD [address] [facility], [facility] [address] [place] [phone] PCP - General 12/10/18 Huan Mcdaniel MD [address] [facility], [facility] [address] [place] [phone] PCP - [place] [employer]age PCP 10/07/21 Diana Marcano MA Range ExaminerCardiopulmonary Technologist Chief 10/11/22 Rib Cloth Knitter Relationship Specialty Start Date End Date Huan Mcdaniel MD [address] [facility], [address] [place] [address] PCP - General 12/10/18 Huan Mcdaniel MD [address] [facility], [address] [place] [address] PCP - [place] Medicare Advantage PCP 10/07/21 Rib Cloth Knitter Relationship Specialty Start Date End Date Huan Mcdaniel MD [address] [facility], [address] [place] [address] PCP - General 12/10/18 Huan Mcdaniel MD [address] [facility], [address] [place] [address] PCP - [place] Medicare [employer]vantage PCP 10/07/21 Rib Cloth Knitter Relationship Specialty Start Date End Date Huan Mcdaniel MD [address] [facility], [address] [place] [address] PCP - General 12/10/18 Huan Mcdaniel MD [address] [facility], [address] [place] [address] PCP - [place] Medicare Advantage PCP 10/07/21 Rib Cloth Knitter Relationship Specialty Start Date End Date Huan Mcdaniel MD [address] [facility], [address] [place] [address] PCP - General 12/10/18 Huan Mcdaniel MD [address] [facility], [address] [place] [address] PCP - [employer] Medicare Advantage PCP 10/07/21 Huan Mcdaniel MD [address] [facility], [address] [place] [address] PCP - [employer] Medicare Advantage PCP 05/10/23 Rib Cloth Knitter Relationship Specialty Start Date End Date Huan Mcdaniel MD [address] [facility], [address] [place] [address] PCP - General 12/10/18 Huan Mcdaniel MD [address] [facility], [address] [place] [address] PCP - [employer] Advantage PCP 10/07/21 Huan Mcdaniel MD [address] [facility], [address] [place] [address] PCP - [employer] Advantage PCP 05/10/23 Rib Cloth Knitter Relationship Specialty Start Date End Date Huan Mcdaniel MD [address] [facility] [address] [place] [address] PCP - General 12/10/18 Huan Mcdaniel MD [address] [facility] [place] [address] [place] [address] PCP - [employer] Medicare Advantage PCP 05/10/23 Rib Cloth Knitter Relationship Specialty Start Date End Date Huan Mcdaniel MD [address] [facility] [place] [address] [place] [address] PCP - General 12/10/18 Huan Mcdaniel MD [address] [facility], [address] [place] [address] PCP - [employer] Advantage PCP 05/10/23 Rib Cloth Knitter Relationship Specialty Start Date End Date Huan Mcdaniel MD [address] [facility] [address] [place] [address] PCP - General 12/10/18 Huan Mcdaniel MD [address] [facility] [address] [place] [address] PCP - [employer]vantage PCP 05/10/23 Rib Cloth Knitter Relationship Specialty Start Date End Date Huan Mcdaniel MD [address] [facility], [address] [place] [address] PCP - General 12/10/18 Huan Mcdaniel MD [address] [facility] [address] [place] [address] PCP - [employer] Advantage PCP 05/10/23 Rib Cloth Knitter Relationship Specialty Start Date End Date Huan Mcdaniel MD [address] [facility] [address] [place] [address] PCP - General 12/10/18 Huan Mcdaniel MD [address] [facility] [address] [place] [address] PCP - [employer] Advantage PCP 05/10/23 Rib Cloth Knitter Relationship Specialty Start Date End Date Huan Mcdaniel MD [address] [facility] [address] [place] [address] PCP - General 12/10/18 Huan Mcdaniel MD [address] [facility], [address] [place] [address] PCP - [employer]vantage PCP 05/10/23 Rib Cloth Knitter Relationship Specialty Start Date End Date Huan Mcdaniel MD [address] [facility], [address] [place] [address] PCP - General 12/10/18 Huan Mcdaniel MD [address] [facility] [address] [place] [address] PCP - [employer] Medicare Advantage PCP 05/10/23 Team Status: Active Member Role Status Dates Dr. April Mullen MD Primary Care Provider Active Team Status: Inactive Member Role Status Dates Dominic LUCERO Primary Care Provider Active St art: February 27, 2024 End: February 27, 2024 Dominic LUCERO Attending Provider Active Start : February 27, 2024 End: February 27, 2024 Dominic LUCERO Referring Provider Active Start : February 27, 2024 End: February 27, 2024 Team Status: Inactive Member Role Status Dates Dominic LUCERO Primary Care Provider Active St art: March 28, 2024 End: March 28, 2024 Dominic LUCERO Attending Provider Active Start : March 28, 2024 End: March 28, 2024 Dominic LUCERO Referring Provider Active Start : March 28, 2024 End: March 28, 2024 Team Status: Inactive Member Role Status Dates Dr. Anthony Greer DO Attending Provider Active Start: March 28, 2024 End: March 28, 2024 Dr. Anthony Greer DO Emergency Provider Active Start: March 28, 2024 End: March 28, 2024 Dr. April Mullen MD Primary Care Provider Active Start: March 28, 2024 End: March 28, 2024 Team Status: Inactive Member Role Status Dates Dr. April Mullen MD Primary Care Provider Active Start: April 03, 2024 End: April 03, 2024 Dr. April LUCERO MD Attending Provider Active Start: April 03, 2024 End: April 03, 2024 Team Status: Inactive Member Role Status Dates Dr. April Mullen MD Primary Care Provider Active Start: April 07, 2024 End: April 07, 2024 Dr. April LUCERO MD Attending Provider Active Start: April 07, 2024 End: April 07, 2024 Team Status: Active Member Role Status Dates Dr. April Mullen MD Primary Care Provider Active Start: April 14, 2024 Dr. April LUCERO MD Attending Provider Active Start: April 14, 2024 Team Status: Inactive Member Role Status Dates Dr. April Mullen MD Primary Care Provider Active Start: April 28, 2024 End: April 28, 2024 Dr. April Mullen MD Referring Provider Active Start: April 28, 2024 End: April 28, 2024 SHAILESH Preciado Attending Provider Active Start: April 28, 2024 End: April 28, 2024 Team Status: Inactive Member Role Status Dates Dr. April Mullen MD Primary Care Provider Active Start: May 12, 2024 End: May 12, 2024 Dr. Delgado LUCERO MD Attending Provider Active Start: May 12, 2024 End: May 12, 2024 Dr. Delgado LUCERO MD Referring Provider Active Start: May 12, 2024 End: May 12, 2024 Team Status: Active Member Role Status Dates Dr. April Mullen MD Primary Care Provider Active Start: May 27, 2024 Dr. April LUCERO MD Attending Provider Active Start: May 27, 2024 Dr. April LUCERO MD Referring Provider Active Start: May 27, 2024 Team Status: Active Member Role Status Dates Dr. April Mullen MD Primary Care Provider Active Start: June 02, 2024 Dr. April LUCERO MD Attending Provider Active Start: June 02, 2024 Team Status: Active Member Role Status Dates Dr. April Mullen MD Primary Care Provider Active Start: June 03, 2024 Dr. Delgado LUCERO MD Attending Provider Active Start: June 03, 2024 Dr. Delgado LUCERO MD Referring Provider Active Start: June 03, 2024 Team Status: Active Member Role Status Dates Dr. April Mullen MD Primary Care Provider Active Start: June 04, 2024 Dr. April LUCERO MD Attending Provider Active Start: June 04, 2024 Team Status: Active Member Role Status Dates Dr. April Mullen MD Primary Care Provider Active Start: June 24, 2024 Dr. Delgado LUCERO MD Attending Provider Active Start: June 24, 2024 Team Status: Inactive Member Role Status Dates Dr. April Mullen MD Primary Care Provider Active Start: July 01, 2024 End: July 01, 2024 Dr. April Mullen MD Referring Provider Active Start: July 01, 2024 End: July 01, 2024 Dr. Jacinto Munoz DO Attending Provider Active Start: July 01, 2024 End: July 01, 2024 Team Status: Active Member Role Status Dates Dr. April Mullen MD Primary Care Provider Active Start: July 01, 2024 Dr. April Mullen MD Referring Provider Active Start: July 01, 2024 Dr. Jacinto Munoz DO Attending Provider Active Start: July 01, 2024 Dr. Jacinto Munoz DO Other Provider Active St art: July 01, 2024 Team Status: Inactive Member Role Status Dates Dr. April Mullen MD Primary Care Provider Active Start: June 03, 2024 End: June 03, 2024 Dr. Delgado LUCERO MD Attending Provider Active Start: June 03, 2024 End: June 03, 2024 Dr. Delgado LUCERO MD Referring Provider Active Start: June 03, 2024 End: June 03, 2024 Team Status: Inactive Member Role Status Dates Dr. April Mullen MD Primary Care Provider Active Start: June 04, 2024 End: June 04, 2024 Dr. April LUCERO MD Attending Provider Active Start: June 04, 2024 End: June 04, 2024 Team Status: Inactive Member Role Status Dates Dr. April Mullen MD Primary Care Provider Active Start: June 24, 2024 End: June 24, 2024 Dr. Delgado LUCERO MD Attending Provider Active Start: June 24, 2024 End: June 24, 2024 Team Status: Inactive Member Role Status Dates Dr. April Mullen MD Primary Care Provider Active Start: July 22, 2024 End: July 22, 2024 Dr. Delgado LUCERO MD Attending Provider Active Start: July 22, 2024 End: July 22, 2024 Team Status: Inactive Member Role Status Dates Dr. April Mullen MD Primary Care Provider Active Start: July 23, 2024 End: July 23, 2024 Dr. April Mullen MD Referring Provider Active Start: July 23, 2024 End: July 23, 2024 Dr. Henri Pedraza MD Attending Provider Active Start: July 23, 2024 End: July 23, 2024 Team Status: Inactive Member Role Status Dates Dr. April Mullen MD Primary Care Provider Active Start: July 31, 2024 End: July 31, 2024 Dr. April Mullen MD Referring Provider Active Start: July 31, 2024 End: July 31, 2024 FIDELIA Dc Attending Provider Active Start: July 31, 2024 End: July 31, 2024 Team Status: Active Member Role Status Dates Dr. April Mullen MD Primary Care Provider Active Start: August 13, 2024 Dr. Henri Pedraza MD Attending Provider Active Start: August 13, 2024 Dr. Henri Pedraza MD Referring Provider Active Start: August 13, 2024 Team Status: Active Member Role Status Dates Dr. April Mullen MD Primary Care Provider Active Start: August 13, 2024 Dr. Henri Pedraza MD Attending Provider Active Start: August 13, 2024 Dr. Henri Pedraza MD Referring Provider Active Start: August 13, 2024 Dr. Henri Pedraza MD Other Provider Active Star t: August 13, 2024 Team Status: Inactive Member Role Status Dates Dr. April Mullen MD Primary Care Provider Active Start: August 13, 2024 End: August 13, 2024 Dr. Henri Pedraza MD Attending Provider Active Start: August 13, 2024 End: August 13, 2024 Dr. Henri Pedraza MD Referring Provider Active Start: August 13, 2024 End: August 13, 2024 Team Status: Active Member Role Status Dates Dr. April Mullen MD Primary Care Provider Active Start: August 19, 2024 Dr. Delgado LUCERO MD Attending Provider Active Start: August 19, 2024 Scheduled Active and Recently Administ ered Medications (unrecognized section and content) Medication Order 06/08/2023 06/09/2023 06/10/2023 traMADol (Ultram) tablet 50 mg (COMPLETED) 50 mg, oral, Once, On Sun06/10/23 at 1800, For 1 dose, Max of 300 mg daily for patients > 75 years of age., If ordered PRN for pain, nurse is permitted to administer this medication for higher pain scores based on patient preference? Yes 181 (Given - Provid er: Bess Carrasquillo RN) Scheduled Medication Order 10/13/2023 10/14/2023 10/15/2023 atenolol (Tenormin) tablet 100 mg 100 mg, oral, Daily, First dose on Sun10/10/23 at 0900 0832 (Given - Provider: Ethel Iverson RN) 0838 (Given - Provider: Ethel Iverson RN) 0819 (Given - Provider: Fátima Guadarrama RN) cefTRIAXone (Rocephin) IVPB 1 g (CANCELED) 1 g, intravenous, at 100 mL/hr, Administer over 30 Minutes, Every 24 hours, First dose on Luann 10/11/23 at 0500, premix bag, Suspected Indication (Select all that apply): Urinary Tract Infection, Type of Therapy: Empiric, Type of Urinary Tract Infection: Uncomplicated, Indications: Urinary Tract Infection 0512 (New Bag - Provider: Deonna Barry RN)0542 (Stopped - Provider: Deonna Barry RN) cephalexin (Keflex) capsule 500 mg (COMPLETED) 500 mg, oral, Every 12 hours scheduled, First dose on Sun10/13/23 at 1145, For 2 days, Suspected Indication (Select all that apply): Urinary Tract Infection, Type of Therapy: Definitive, Based on Culture, Type of Urinary Tract Infection: Complicated, Indications: Urinary Tract Infection 1220 (Given - Provider: Ethel Iverson RN)2041 (Given - Provider: Raquel Ibrahim RN) 0839 (Given - Provider: Ethel Iverson RN)2058 (Given - Provider: Raquel Ibrahim, UZMA) cholecalciferol (Vitamin D-3) tablet 2,000 Units 2,000 Units, oral, Daily, First dose on Sun10/10/23 at 0900 0833 (Given - Provider: Ethel Iverson RN) 0838 (Given - Provider: Ethel Iverson, UZMA) 0819 (Given - Provider: Fátima Guadarrama, UZMA) diphenhydrAMINE (BENADryl) capsule 25 mg 25 mg, oral, Nightly, First dose on Sun10/14/23 at 2100 2058 (Given - Provider: Raquel Ibrahim, UZMA) 2099 (Due) ferrous gluconate (Fergon) 324 (38 Fe) mg tablet 38 mg of iron 38 mg of iron, oral, Daily with breakfast, First dose on Sun10/10/23 at 0800, Do not crush, chew, or split. 0832 (Given - Provider: Ethel Iverson RN) 0839 (Given - Provider: Ethel Iverson RN) 0824 (Given - Provider: Fátima Guadarrama, UZMA) insulin lispro (HumaLOG) injection 0-10 Units 0-10 Units, subcutaneous, 3 times daily (morning, midday, late afternoon), First dose on Sun10/10/23 at 0800, Do not hold when patient is not eating, continue order as scheduled for hyperglycemia management. Insulin Lispro Corrective Scale #2 Hypoglycemia protocol Call LIP unit(s) if Blood Glucose is between 0 - 70 mg/dL 0 unit(s) if Blood glucose is between 71-150 2 unit(s) if Blood glucose is between 151-200 4 unit(s) if Blood glucose is between 201-250 6 unit(s) if Blood glucose is between 251-300 8 unit(s) if Blood glucose is between 301-350 10 unit(s) if Blood glucose is between 351-400 Notify provider unit(s) if Blood Glucose is greater than 400 mg/dL 0830 (Given - Provider: Ethel Iverson RN)1223 (Given - Provider: Ethel Iverson RN)1719 (Given - Provider: Ethel Iverson RN) 0841 (Given - Provider: Ethel Iverson RN)1215 (Given - Provider: Ethel Iverson RN)1721 (Given - Provider: Ethel Iverson RN) 0824 (Given - Provider: Fátima Guadarrama RN)1315 (Given - Provider: Fátima Guadarrama RN)1700 (Not Given - Provider: Fátima Guadarrama RN - Reason: Other - Comment: BS 141) magnesium oxide (Mag-Ox) tablet 200 mg 200 mg, oral, Daily, First dose on Sun10/10/23 at 0900 0832 (Given - Provider: Ethel Iverson RN) 0839 (Given - Provider: Ethel Iverson RN) 0819 (Given - Provider: Fátima Guadarrama RN) oxygen (O2) therapy inhalation, Continuous - Inhalation, First dose on Sun10/10/23 at 0500, Device: Nasal Cannula, Rate in liters per minute: 2 LPM, Keep O2 Sat Above: 92% 0800 (Due)1999 (Due) 0636 (Due - Provider: Kenya Vera, PRODUCTION BOW MAKER)1999 (Due) 0634 (Rate [employer] - Provider: Ladi Kaba, BOTTLE CARRIER)1999 (Due) phenazopyridine (Pyridium) tablet 200 mg 200 mg, oral, 3 times daily (morning, midday, late afternoon), First dose (after last modification) on Sun10/10/23 at 0930, May discolor urine (orange). 0832 (Given - Provider: Ethel Iverson RN)1220 (Given - Provider: Ethel Iverson RN)1719 (Given - Provider: Ethel Iverson RN) 0839 (Given - Provider: Ethel Iverson RN)1215 (Given - Provider: Ethel Iverson RN)1721 (Given - Provider: Ethel Iverson RN) 0819 (Given - Provider: Fátima Guadarrama RN)1315 (Given - Provider: Fátima Guadarrama RN)1700 (Due) polyethylene glycol (Glycolax, Miralax) packet 17 g 17 g, oral, Daily, First dose on Sun10/10/23 at 0900 0900 (Not Given - Provider: Ethel Iverson RN - Reason: Patient/family refused) 09 (Not Given - Provider: Ethel Iverson RN - Reason: Patient/family refused) 0900 (Not Given - Provider: Fátima Guadarrama RN - Reason: Patient/family refused) rivaroxaban (Xarelto) tablet 20 mg 20 mg, oral, Daily, First dose on Sun10/10/23 at 0900, Best administered with food or immediately before tube feedings. If ordered via NG or G-tube route, crush and mix with 50 mL water; give within 4 hours of mixing. 0833 (Given - Provider: Ethel Iverson RN) 0838 (Given - Provider: Ethel Iverson RN) 0819 (Given - Provider: Fátima Guadarrama RN) rosuvastatin (Crestor) tablet 10 mg 10 mg, oral, Nightly, First dose on Sun10/10/23 at 2099 2041 (Given - Provider: Raquel Ibrahim RN) 2058 (Given - Provider: Raquel Ibrahim RN) 2099 (Due) sennosides-docusate sodium (Regine-Colace) 8.6-50 mg per tablet 2 tablet 2 tablet, oral, 2 times daily, First dose on Sun10/10/23 at 0900, Bowel Regimen - for prevention of constipation Hold for loose stools 899 (Not Given - Provider: Ethel Iverson RN - Reason: Patient/family refused)2041 (Given - Provider: Raquel Ibrahim RN) 0839 (Given - Provider: Ethel Iverson RN)2099 (Not Given - Provider: Raquel Ibrahim RN - Reason: Other - Comment: pt. having loose stool) 08 (Given - Provider: Fátima Guadarrama, UZMA)2100 (Due) venlafaxine XR (Effexor-XR) 24 hr capsule 75 mg 75 mg, oral, Daily, First dose on Sun10/10/23 at 0900, Capsule may be swallowed whole, or may be opened and its contents sprinkled on applesauce if consumed immediately without chewing. Do not crush or chew. 0833 (Given - Provider: Ethel Iverson RN) 0839 (Given - Provider: Ethel Iverson RN) 0819 (Given - Provider: Fátima Guadarrama, UZMA) PRN Medication Order 10/13/2023 10/14/2023 10/15/2023 acetaminophen (Tylenol) tablet 650 mg 650 mg, oral, Every 6 hours PRN, pain mild (1-3), first line, pain moderate (4-6), first line, headaches, fever (temp greater than 38.0 C), Starting on Sun10/10/23 at 0522, If ordered PRN for pain, nurse is permitted to administer this medication for higher pain scores based on patient preference? Yes 2058 (Given - Provider: Raquel Ibrahim RN) baclofen (Lioresal) tablet 10 mg 10 mg, oral, 3 times daily PRN, muscle spasms, Starting on Sun10/10/23 at 0813 dextrose 50 % injection 12.5 g 12.5 g, intravenous, Every 15 min PRN, For blood glucose 41 to 70 mg/dL, Starting on Sun10/10/23 at 0522, May repeat until blood glucose level reaches 100 mg/dL or greater. Push 2 - 3 mL/minute if patient has secure IV access. dextrose 50 % injection 25 g 25 g, intravenous, Every 15 min PRN, For blood glucose less than or equal to 40 mg/dL, Starting on Sun10/10/23 at 0522, May repeat until blood glucose level reaches 100 mg/dL or greater. Push 2 - 3 mL/minute if patient has secure IV access. glucagon (Glucagen) injection 1 mg 1 mg, intramuscular, Every 15 min PRN, low blood sugar - see comments, For blood glucose less than or equal to 40 mg/dL and no IV access, Starting on Sun10/10/23 at 0522, Give until blood glucose is 100 mg/dL or greater. If patient DOES NOT HAVE secure IV access & patient is unconscious, NPO or is unable to eat or drink. glucagon (Glucagen) injection 1 mg 1 mg, intramuscular, Every 15 min PRN, low blood sugar - see comments, For blood glucose less than or equal to 70 mg/dL and no IV access, Starting on Sun10/10/23 at 0522, Give until blood glucose is 100 mg/dL or greater. If patient DOES NOT HAVE secure IV access & patient is unconscious, NPO or is unable to eat or drink. magnesium hydroxide (Milk of Magnesia) 2,400 mg/10 mL suspension 10 mL 10 mL, oral, Daily PRN, constipation, first line, Starting on Sun10/10/23 at 0522, Contact provider if no bowel movement in past 48 hours. Concentrated product. Follow administration with 8 ounces of water. ondansetron (Zofran) injection 4 mg 4 mg, intravenous, Every 6 hours PRN, nausea/vomiting, first line, Starting on Sun10/10/23 at 0522, When administering via IV Push, administer over 3-5 minutes. Scheduled Medication Order 11/18/2023 11/19/2023 11/20/2023 atenolol (Tenormin) tablet 50 mg 50 mg, oral, 2 times daily, First dose on Sun11/09/23 at 0245 0932 (Given - Provider: Sarah Zepeda RN)2104 (Given - Provider: Armida Maria RN) 0901 (Given - Provider: Sonya Fine RN)2100 (Not Given - Provider: Belgica York RN - Reason: Patient/family refused) 0931 (Given - Provider: Sonya Fine RN)2100 (Due) cefTRIAXone (Rocephin) 2 g in dextrose (iso) IV 50 mL 2 g, intravenous, at 100 mL/hr, Administer over 30 Minutes, Every 12 hours, First dose on Sun11/16/23 at 2100, premix bag, Suspected Indication (Select all that apply): Osteomyelitis/Septic Arthritis, Type of Therapy: Empiric, Indications: Osteomyelitis/Septic Arthritis 0933 (New Bag - Provider: Sarah Zepeda RN)1003 (Stopped - Provider: Sarah Zepeda RN)2214 (New Bag - Provider: Armida Maria RN)2244 (Stopped - Provider: Armida Maria RN) 0944 (New Bag - Provider: Sonya Fine RN)1014 (Stopped - Provider: Sonya Fine RN)2124 (New Bag - Provider: Belgica York RN)2154 (Stopped - Provider: Belgica York RN) 0933 (New Bag - Provider: Sonya Fine RN)1003 (Stopped - Provider: Sonya Fine RN)2100 (Due) cholecalciferol (Vitamin D-3) tablet 2,000 Units 2,000 Units, oral, Daily, First dose on Sun11/09/23 at 0900 0932 (Given - Provider: Sarah Zepeda RN) 0858 (Given - Provider: Sonya Fine RN) 0930 (Given - Provider: Sonya Fine RN) cyclobenzaprine (Flexeril) tablet 5 mg 5 mg, oral, 3 times daily, First dose on Sun11/14/23 at 2100 0933 (Given - Provider: Sarah Zepeda RN)1559 (Given - Provider: Sarah Zepeda RN)2101 (Given - Provider: Armida Maria RN) 0900 (Given - Provider: Sonya Fine RN)1700 (Given - Provider: Sonya Fine RN)2122 (Given - Provider: Belgica York RN) 0932 (Given - Provider: Sonya Fine RN)1435 (Given - Provider: Sonya Fine RN)2100 (Due) enoxaparin (Lovenox) syringe 40 mg 40 mg, subcutaneous, Every 24 hours, First dose (after last modification) on Luann 11/15/23 at 1745, Indications: deep vein thrombosis prevention 1801 (Given - Provider: Sarah Zepeda RN) 1858 (Given - Provider: Sonya Fine RN) 1745 (Due) insulin lispro (HumaLOG) injection 0-10 Units 0-10 Units, subcutaneous, 4 times daily before meals and nightly, First dose (after last modification) on 11/10/23 at 0700, Insulin Lispro Corrective Scale #2 Hypoglycemia protocol Call LIP unit(s) if Blood Glucose is between 0 - 70 mg/dL 0 unit(s) if Blood glucose is between 71-150 2 unit(s) if Blood glucose is between 151-200 4 unit(s) if Blood glucose is between 201-250 6 unit(s) if Blood glucose is between 251-300 8 unit(s) if Blood glucose is between 301-350 10 unit(s) if Blood glucose is between 351-400 Notify provider unit(s) if Blood Glucose is greater than 400 mg/dL 0700 (Not Given - Provider: Sarah Zepeda RN - Reason: Order parameters not met)1222 (Given - Provider: Sarah Zepeda RN)1625 (Given - Provider: Sarah Zepeda RN)2117 (Given - Provider: Armida Maria RN) 0700 (Not Given - Provider: Sonya Fine RN - Reason: Order parameters not met - Comment: BG 124)1100 (Not Given - Provider: Sonya Fine RN - Reason: Order parameters not met)1600 (Not Given - Provider: Sonya Fine RN - Reason: Other - Comment: pt not eating)2100 (Not Given - Provider: Belgica York RN - Reason: Order parameters not met - Comment: Patient just ate) 0700 (Not Given - Provider: Sonya Fine RN - Reason: Order parameters not met - Comment: BG 135)1100 (Not Given - Provider: Sonya Fine RN - Reason: Order parameters not met)1600 (Due)2100 (Due) lidocaine (Xylocaine) 10 mg/mL (1 %) injection 5 mL 5 mL, infiltration, Once, On Sun11/16/23 at 1515, For 1 dose magnesium sulfate 2 g in sterile water for injection 50 mL (COMPLETED) 2 g, intravenous, at 25 mL/hr, Administer over 2 Hours, Once, On Sun11/18/23 at 0800, For 1 dose 1042 (New Bag - Provider: Sarah Zepeda RN)1242 (Stopped - Provider: Sarah Zepeda RN) magnesium sulfate 2 g in sterile water for injection 50 mL (COMPLETED) 2 g, intravenous, at 25 mL/hr, Administer over 2 Hours, Once, On Sun11/19/23 at 0900, For 1 dose 1056 (New Bag - Provider: Sonya Fine RN)1256 (Stopped - Provider: Sonya Fine RN) nystatin (Mycostatin) 100,000 unit/gram powder 1 Application 1 Application, Topical, 2 times daily, First dose on Sun11/15/23 at 2100, Apply to skin folds as needed. 0933 (Given - Provider: Sarah Zepeda RN)2105 (Given - Provider: Armida Maria RN) 899 (Given - Provider: Sonya Fine RN)2155 (Given - Provider: Belgica York, UZMA) 0745 (Given - Provider: Sonya Fine, RN)2100 (Due) polyethylene glycol (Glycolax, Miralax) packet 34 g 34 g, oral, 2 times daily, First dose (after last modification) on Sun11/11/23 at 2100, Bowel Regimen - for prevention of constipation. 09 (Not Given - Provider: Sarah Zepeda RN - Reason: Patient/family refused)2100 (Given - Provider: Armida Maria RN - Comment: pt wants to only take 17g) 899 (Not Given - Provider: Sonya Fine RN - Reason: Patient/family refused)2127 (Given - Provider: Belgica York, UZMA) 09 (Given - Provider: Sonya Fine RN)2099 (Due) rivaroxaban (Xarelto) tablet 20 mg 20 mg, oral, Daily, First dose on Sun11/09/23 at 0900, Best administered with food or immediately before tube feedings. If ordered via NG or G-tube route, crush and mix with 50 mL water; give within 4 hours of mixing., On hold since Sun11/09/2023 at 0747 until manually unheld 899 (Not Given - Provider: Sarah Zepeda RN - Reason: See Provider Order) 09 (Not Given - Provider: Sonya Fine RN - Reason: See Provider Order) 09 (Not Given - Provider: Sonya Fine RN - Reason: See Provider Order) rosuvastatin (Crestor) tablet 10 mg 10 mg, oral, Nightly, First dose on Sun11/09/23 at 0245 2100 (Given - Provider: Armida Maria RN) 2128 (Given - Provider: Belgica York RN) 2100 (Due) sennosides (Senokot) tablet 17.2 mg 17.2 mg (2 tablet), oral, 2 times daily, First dose on Sun11/11/23 at 1115 0932 (Given - Provider: Sarah Zepeda RN)2100 (Not Given - Provider: Armida Maria RN - Reason: Patient/family refused) 0900 (Given - Provider: Sonya Fine RN)212 (Given - Provider: Belgica York RN) 0932 (Given - Provider: Sonya Fine RN)2100 (Due) vancomycin (Vancocin) 1,000 mg in dextrose 5% IV 200 mL 1,000 mg, intravenous, at 200 mL/hr, Administer over 60 Minutes, Every 12 hours, First dose (after last modification) on Sun11/20/23 at 1700, premix bag, Dosing of this medication varies based on severity of illness. Does this patient have sepsis or concern for sepsis (probable or documented infection plus systemic manifestations of infection)? No, Suspected Indication (Select all that apply): Osteomyelitis/Septic Arthritis, Indications: Osteomyelitis/Septic Arthritis 1699 (Due) vancomycin (Vancocin) in dextrose 5 % water (D5W) 250 mL IV 1,250 mg (CANCELED) 1,250 mg, intravenous, at 200 mL/hr, Administer over 75 Minutes, Every 24 hours, First dose on Sun11/09/23 at 1300, Mini-Bag Plus/ADD-Braggadocio bag, Dosing of this medication varies based on severity of illness. Does this patient have sepsis or concern for sepsis (probable or documented infection plus systemic manifestations of infection)? No, Suspected Indication (Select all that apply): Osteomyelitis/Septic Arthritis, Indications: Osteomyelitis/Septic Arthritis 2055 (New Bag - Provider: Armida Maria RN)2210 (Stopped - Provider: Armida Maria RN) vancomycin (Vancocin) in dextrose 5 % water (D5W) 500 mL IV 1,500 mg (CANCELED) 1,500 mg, intravenous, at 333.3 mL/hr, Administer over 90 Minutes, Every 24 hours, First dose on Sun11/19/23 at 2000, Dosing of this medication varies based on severity of illness. Does this patient have sepsis or concern for sepsis (probable or documented infection plus systemic manifestations of infection)? No, Suspected Indication (Select all that apply): Osteomyelitis/Septic Arthritis, Indications: Osteomyelitis/Septic Arthritis 2121 (New Bag - Provider: Belgica York RN)2251 (Stopped - Provider: Belgica York RN) venlafaxine XR (Effexor-XR) 24 hr capsule 112.5 mg 112.5 mg, oral, Daily, First dose (after last modification) on Sun11/20/23 at 0900, Capsule may be swallowed whole, or may be opened and its contents sprinkled on applesauce if consumed immediately without chewing. Do not crush or chew. 0931 (Given - Provider: Sonya Fine RN) venlafaxine XR (Effexor-XR) 24 hr capsule 75 mg (CANCELED) 75 mg, oral, Daily, First dose on Sun11/09/23 at 0900, Capsule may be swallowed whole, or may be opened and its contents sprinkled on applesauce if consumed immediately without chewing. Do not crush or chew. 0932 (Given - Provider: Sarah Zepeda RN) 0901 (Given - Provider: Sonya Fine RN) PRN Medication Order 11/18/2023 11/19/2023 11/20/2023 acetaminophen (Tylenol) tablet 650 mg 650 mg, oral, Every 6 hours PRN, pain mild (1-3), first line, pain moderate (4-6), first line, Starting on Sun11/17/23 at 1016, If ordered PRN for pain, nurse is permitted to administer this medication for higher pain scores based on patient preference? Yes 0932 (Given - Provider: Sarah Zepeda RN)1559 (Given - Provider: Sarah Zepeda RN) 0858 (Given - Provider: Sonya Fine RN) 0855 (Given - Provider: Sonya Fine RN) alteplase (Cathflo Activase) injection 2 mg 2 mg, intra-catheter, As needed, line care, Starting on Sun11/16/23 at 1451, Via PICC Line Removed by: Aspiration Inject into partial/totally occluded catheter lumen for total of 30 to 120 minute dwell time; assess patency at 30 minutes and if not patent, dwell for additional 90 minutes. If still not patent, repeat alteplase 2 mg injected into thrombotic partial or totally occluded lumen for a total of 120 minute dwell time; assess patency at 30 minutes and if not patent, dwell for 90 minutes. If still not patent, notify provider. Dilute each 2 mg vial with 2.2 mL sterile water to give 1 mg/mL final concentration. Swirl gently to mix; do not shake. dextrose 50 % injection 12.5 g 12.5 g, intravenous, Every 15 min PRN, For blood glucose 41 to 70 mg/dL, Starting on Sun11/09/23 at 0328, May repeat until blood glucose level reaches 100 mg/dL or greater. Push 2 - 3 mL/minute if patient has secure IV access. dextrose 50 % injection 25 g 25 g, intravenous, Every 15 min PRN, For blood glucose less than or equal to 40 mg/dL, Starting on Sun11/09/23 at 0328, May repeat until blood glucose level reaches 100 mg/dL or greater. Push 2 - 3 mL/minute if patient has secure IV access. glucagon (Glucagen) injection 1 mg 1 mg, intramuscular, Every 15 min PRN, low blood sugar - see comments, For blood glucose less than or equal to 40 mg/dL and no IV access, Starting on Sun11/09/23 at 0328, Give until blood glucose is 100 mg/dL or greater. If patient DOES NOT HAVE secure IV access & patient is unconscious, NPO or is unable to eat or drink. HYDROmorphone (Dilaudid) injection 0.2 mg 0.2 mg, intravenous, Every 3 hours PRN, pain severe (7-10), first line, Starting on Sun11/14/23 at 1845 0924 (Given - Provider: Sonya Fine RN) ipratropium-albuteroL (Duo-Neb) 0.5-2.5 mg/3 mL nebulizer solution 3 mL 3 mL, nebulization, Every 6 hours PRN, wheezing, shortness of breath, Starting on Sun11/09/23 at 0327 oxyCODONE (Roxicodone) immediate release tablet 10 mg 10 mg, oral, Every 4 hours PRN, pain severe (7-10), second line, Starting on Sun11/14/23 at 1845, If ordered PRN for pain, nurse is permitted to administer this medication for higher pain scores based on patient preference? Yes 2123 (Given - Provider: Belgica York RN) oxyCODONE (Roxicodone) immediate release tablet 5 mg 5 mg, oral, Every 4 hours PRN, pain moderate (4-6), first line, Starting on Sun11/09/23 at 0757, If ordered PRN for pain, nurse is permitted to administer this medication for higher pain scores based on patient preference? Yes 1831 (Given - Provider: Sarah Zepeda RN) 0932 (Given - Provider: Sonya Fine RN) vancomycin (Vancocin) pharmacy to dose - pharmacy monitoring miscellaneous, Daily PRN, other, Vancomycin Placeholder, Starting on Sun11/09/23 at 0229, This is a placeholder. Pharmacy will enter orders when vancomycin needs to be administered. Goals (unrecognized section and content) Goals may be documented in a n alternate section FOR RECORDS PERTAINING TO PATIENTS WHO ARE OR HAVE BEEN ENROLLED IN A CHEMICAL DEPENDENCY/SUBSTANCEABUSE PROGRAM, SOME INFORMATION MAY BE OMITTED. This clinical summary was aggregated from multiple sources. Caution should be exercised in using it in the provision of clinical care. This summary normalizes information from multiple sources, and as a consequence, information in this document may materially change the coding, format and clinical context of patient data. In addition, data may be omitted in some cases. CLINICAL DECISIONS SHOULD BE BASED ON THE PRIMARY CLINICAL RECORDS. [employer] acquired by [employer] provides no warranty or guarantee of the accuracy or completeness of information in this document.
[2024-09-16 08:59] LABS: Hematocrit 30.9 % (37-47); Hemoglobin 9.4 g/dL (12.0-15.0); Mean Corp Hgb Conc 30.4 g/dL (32-36); Mean Corpuscular Hgb 26.4 pg (27.0-32.0); Mean Corpuscular Volume 86.8 fL (81-99); Mean Platelet Vol. 9.7 fl (6.2-12.0); Platelet Count 203 K/mm3 (150-450); RBC Distribution Width CV 15.1 % (11.6-14.6); RBC Distribution Width SD 48.3 fl (35.1-43.9); Red Blood Count 3.56 M/mm3 (4.2-5.4); White Blood Count 7.6 K/mm3 (4.4-11.0)
[2024-09-16 09:11] LABS: Anion Gap 12 (5-15); BUN 28 mg/dL (4-19); BUN/Creat Ratio 23.1 RATIO (10-20); Calcium,Total 9.1 mg/dL (7.6-11.0); Carbon Dioxide 27.1 mmol/L (21.0-32.0); Chloride 99 mmol/L (98-108); Creatinine, Serum 1.19 mg/dL (0.70-1.20); EST Glomerular Filtration Rate 47 (>60); Glucose 98 mg/dL (70-99); Potassium 4.3 mmol/L (3.3-5.1); Sodium Level 138 mmol/L (133-145)
== END ==
LOC: OLS.SW 05:00
PROVIDERS: PCP Internal Medicine; Visit Provider Family Medicine
DX: Z79.899 Other long term (current) drug therapy (principal)
CPT/HCPCS: 36415; 80048; 85027

== ENCOUNTER 2024-10-28 10:27 | Day surgery (SDC) | payer MEDICARE, SELFPAY ==
--- NOTE | 2024-10-21 16:44 | PAT.ANE_ITS ---
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 When Was Last Pacemaker Check QUESTION #4 FULL TEXT: You/Your Family Experience fever (hyperthermia) with Anesthesia Last Oral Intake Last Oral intake: Last Oral Intake NPO since Meds taken in AM with sips of water? Meds patient instructed to take am of surgery PONV PONV - professor of engineering: PONV - professor of engineering Female Yes 10/21/24 08:35 HX of Motion Sickness No 10/21/24 08:35 HX of N/V After Surgery No 10/21/24 08:35 Non-Smoker Yes 10/21/24 08:35 Duration of Surgery greater No 10/21/24 08:35 than 60 minutes Number of Risk Factors 2 10/21/24 08:35 PONV Score Moderate Risk 10/21/24 08:35 Height & Weight Height & Weight: Anesthesia: Height & Weight Height 5 ft 6 in 10/09/24 14:51 Respiratory Assessment Respiratory Assessment - professor of engineering: Respiratory Tract Infection Hx - professor of engineering Hx Respiratory Tract Infection No 10/21/24 08:35 STOP Sleep Apnea STOP Sleep Apnea - professor of engineering: STOP Sleep Apnea - professor of engineering Hx Hypertension Yes 10/21/24 08:35 Hx Sleep Apnea No 10/21/24 08:35 CPAP BIPAP Do you snore loudly (louder No 10/21/24 08:35 than talking or can be heard Do you often feel tired/ No 10/21/24 08:35 fatigued/ sleepy during daytime? Has anyone observed you stop No 10/21/24 08:35 breathing during sleep? STOP Results Negative 10/21/24 08:35 QUESTION #5 FULL TEXT : Do you snore loudly (louder than talking or can be heard through closed doors)? Tobacco Use History Tobacco Use History - professor of engineering: Tobacco Use History - professor of engineering Tobacco Use Smoking Status Never smoker 10/21/24 08:35 Hx Tobacco Use No 10/21/24 08:35 Years Smoking Packs Smoked per Day Smoking Cessation Date was within the last 15 years Hx Smoking Cessation Date Hx Smoking Cessation Counseling Hematologic Medial History Hematologic Hx - professor of engineering: Hematologic Medical Hx - rn clinical documentation Hx of Blood Transfusion No 10/21/24 08:35 Hx of Transfusion in last 3 No 10/21/24 08:35 Months Date of Last Transfusion (if within last 3 months) Ever experience any problems No 10/21/24 08:35 with transfusion(s)? Specify any problems Hx of Preganancy in last 3 No 10/21/24 08:35 Months Nurse Filling Out Transfusion [facility] 10/21/24 08:35 & Questions: Date: 10/21/24 10/21/24 08:35 Time: 08:37 10/21/24 08:35 Patient unable to answer at this time (ie. confused, unrespo /Reproduction History /Reproductive History - professor of engineering: /Reproductive Hx- professor of engineering Hx Now No 10/21/24 08:35 Gestational Age (in weeks): EDC: Hx Hx Para Hx Section SAB No 10/21/24 08:35 [facility] Medical History (Updated 10/21/24 @ 08:51 by Amirah Cooper) Post-menopausal History of ulceration Gastric reflux History of stress test History of irregular heartbeat Aortic stenosis Lives in detention Wears glasses Wears partial dentures Marijuana use Discoloration of skin Open wound Insulin dependent diabetes mellitus Uses wheelchair Arthritis History of renal disease Low iron High cholesterol Back pain Dietary restriction History of GI bleed Non-smoker Chronic cough History of edema History of echocardiogram Cardiology follow-up encounter History of CHF (congestive heart failure) History of atrial fibrillation Palpitations Magnesium deficiency Diarrhea Asthma Vertebral osteomyelitis Discitis of thoracic region Intractable back pain Syndrome of inappropriate secretion of antidiuretic hormone Age-related incipient cataract of both eyes Iron deficiency anemia Generalized muscle weakness Morbid obesity with BMI of 40.0-44.9, adult Vitamin D deficiency Venous stasis ulcer with varicose veins Renal lesion Primary osteoarthritis of both knees History of colonic polyps Neurodermatitis Lymphedema of leg Lumbar facet arthropathy Benign essential hypertension Anemia Anxiety Depression CHF (congestive heart failure) A-fib COPD (chronic obstructive pulmonary disease) Kidney disease Diabetes Hyperlipidemia History of ESBL E. coli infection History of infection with vancomycin resistant Enterococcus (VRE) Altered mental status Home Medications ?Medication ?Instructions ?Recorded ?Last Taken ?Type cholecalciferol (vitamin D3) 25 25 mcg PO DAILY Unknown History mcg (1,000 unit) capsule insulin lispro 100 unit/mL See Protocol subcut .TIDCM& HS 12/31/23 Unknown History subcutaneous pen (Humalog KwikPen (U-100) Insulin) nystatin 100,000 unit/gram topical 1 applic topical BI D PRN skin 12/31/23 Unknown History powder irritation potassium chloride 10 mEq 20 meq PO DAILY 12/31/23 Unk nown History capsule,extended release melatonin 3 mg tablet 6 mg (2 x 3 mg) PO QHS #0 ta bs 01/08/24 Unknown Rx buspirone 5 mg tablet 5 mg PO BID 03/28/24 Unknown History dapagliflozin propanediol 5 mg 5 mg PO DAILY 03/28/24 Unknown History tablet (Farxiga) ferrous sulfate 325 mg (65 mg 325 mg PO QDAY 04/28/24 Unknown History iron) tablet furosemide 20 mg tablet 20 mg PO QAM 04/28/24 Unknow n History pantoprazole 40 mg tablet,delayed 40 mg PO QDAY #90 ta bs 04/28/24 Unknown Rx release cyclobenzaprine 10 mg tablet 5 mg PO TID 06/10/24 Unkn own History acetaminophen 325 mg tablet 650 mg PO Q4H PRN Pain 1- Or 06/30/24 Unknown History Fever>100.7 albuterol sulfate 90 mcg/actuation 2 inh inhalation Q6 H PRN shortness 06/30/24 Unknown History aerosol inhaler of breath or wheezing guaifenesin 400 mg tablet 400 mg PO Q4H PRN cough 06/08 08/01 Unknown History insulin glargine 100 unit/mL (3 8 unit subcut DAILY 07/01/24 History mL) subcutaneous pen (Lantus Solostar U-100 Insulin) polyethylene glycol 3350 17 17 g PO QODAY 06/30/24 Unk nown History gram/dose oral powder (Miralax) apixaban 5 mg tablet (Eliquis) 5 mg PO BID #90 tabs Unknown Rx carvedilol 3.125 mg tablet 3.125 mg PO BID #180 tabs 0 07/31/24 Unknown Rx docusate sodium 100 mg capsule 100 mg PO BID 10/09/24 Unknown History venlafaxine 150 mg 150 mg PO QDAY 10/09/24 Unkn own History capsule,extended release 24 hr benzonatate 100 mg capsule 100 mg PO TID PRN cough Unknown History magnesium hydroxide 400 mg/5 mL 30 ml PO DAILY PRN con stipation 10/21/24 Unknown History oral suspension (Milk of Magnesia) Allergy/AdvReac Type Severity Reaction Status Date / Time No Known Allergies Allergy Verified 10/21/24 08:28 Family History (Reviewed 10/09/24 @ 15:04 by Yennifer Pemberton CABLE INSTALLATION MANAGER, CABLE INSTALLATION MANAGER-C) Mother Alzheimer dementia Breast cancer Heart disease Brother Cystic fibrosis Surgical History History of colonoscopy S/P laminectomy History of tubal ligation Hx of cholecystectomy H/O section Social History Smoking Status: Never smoker alcohol intake: never Audit: Pertinent Findings Pertinent Findings EKG Perinent findings: 07/23/2024. Possible atrial fibrillation. Frequent ectopic ventricular beats. Poor R wave progression?nonspecific consider old anterior infarct. Nonspecific ST depression. Nonspecific T wave abnormality?Nondiagnostic Stress test pertinent findings: 08/13/2024. EF of 34%. Peak pharmacologic EKG with no ischemic changes. Baseline atrial fibrillation. Occasional PVCs noted. No reversible perfusion defects noted. Small fixed apical defect likely attenuation artifact versus physiological thinning. Echo (EF%) pertinent findings: 08/13/2024. EF of 40 to 45%. RVSP is 62 mmHg. Severe aortic valve stenosis with a mean peak gradient of 40 mmHg. Consult pertinent findings: 10/09/2024. Nilay LEMUS-C. 1. Aortic stenosis?acute-latest echo as above. Patient was referred to cardiothoracic surgery. Patient has an appointment in November for a possible TAVR. 2. Atrial fibrillation?chronic-patient is irregularly irregular on exam today. Heart rate is well-controlled. Patient is to continue Eliquis, carvedilol. Continue to monitor for concerning symptoms of A-fib. 3. Chronic heart failure with reduced ejection [id number] echo August 13, 2024 showed improved ejection fraction to 40 to 44%. Stable at this time. Continue carvedilol, Farxiga, Lasix. Discontinue lisinopril due to low blood pressure. 4. Hypertension?chronic-blood pressure is low in the office today 89/69. Discontinue lisinopril. Continue other meds. Recommendation Anesthesia Recommendation Anesthesia recommendation: OPTIMIZED for anesthesia (Patient has severe aortic stenosis. Take extreme caution to avoid increased heart rate or decrease blood pressure. Phenylephrine is drug of choice.)
[2024-10-28] VITALS (9 sets, daily range): BP systolic 98–126; BP diastolic 76–92; PULSE 66–95; RESP 18–24; TEMP 36.6–37; O2SAT 93–100; BMI 33.5
[2024-10-28] MEDS: Lactated Ringers 1,000 ML 15 ML IV (11:00)
--- NOTE | 2024-10-28 11:30 | EGD_PTH ---
PATIENT: DARYN SHAH LOC: EN U#:[id number] AGE/SX: 78/F ROOM: RE10/28/[address]: Dr. Jacinto Munoz DO : 1945 BED: DIS: 10/28/2024 SPEC #: [id number] RECD: 10/28/24 14:10 STATUS: ADAM RADHA #: [id number] CAREN: 10/28/24 11:[address]: Jacinto Munoz DEPT: SURGICAL PATHOLOGY RECD BY: Mookie Lazar ENTERED: 10/28/24 14:34 SP TYPE: EGD BIOPSY ELLE DR: Dr. April Pacheco MD Tissues: A - Gastric mucous membrane Procedures: Immunohistochemical Stains Special Stain Group I Surgery Specimen Level IV Iron Stain (control) HEADER OPERATION: EGD with biopsy PRE-OP DIAGNOSIS: Gastric ulcer, anemia TISSUE SUBMITTED: A- Gastric antrum biopsy MICROSCOPIC DIAGNOSIS A. Gastric antrum, biopsy: - Chronic gastritis with features of reactive gastropathy. - IHC negative for H.pylori organisms. - Focal superficial mucosal pigment positive for iron (Prussian blue stain), suggestive of ingestion of iron-containing compound. MICROSCOPIC DESCRIPTION Slides are reviewed. All matched controls reacted appropriately. These tests were developed and their performance characteristics determined by [facility]. They may not have been cleared or approved by the [place]. Food and Drug Administration. The FDA has determined that such clearance or approval is not necessary. The above immunohistochemical/dualISH markers are viewed by the Pathologist. GROSS DESCRIPTION A. Received in fixative is one container labeled with the patient's name and designated Gastric antrum biopsy. The specimen consists of two irregular fragments of light chase soft tissue that in aggregate measure 0.8 x 0.4 x 0.2 cm. The specimen is totally submitted in one cassette. 10/28/2024 CPT:86732,82734,73054
--- NOTE | 2024-10-28 11:30 | PCM.PRE.AN2 ---
ASA Classification* ASA Classification ASA Classification: 4 (Low EF with severe Ao stenosis, being examined next month for TAVR. Denies CP.) Assessment & Plan Anesthesia* Anesthesia Assessment Anesthesia Assessment: Discussed sedation and/or anesthesia options, risks, benefits, and alternatives with patient/parents/legal guardian/POA. Questions invited. The patient/parents/legal guardian/POA seems to understand and agrees to proceed with anesthesia plan. Reviewed the physical assessment, medical history, allergy history and patient home medications list prior to surgery/procedure/anesthetic and documented any changes. Performed airway and anesthesia risk assessments. Anesthesia Type Anesthesia Type: MAC History Source History Obtained from:: Patient Anesthesia Focused Assessment* Temperature: 98.6 F Pulse Rate: 66 Blood Pressure: 105/92 Respiratory Rate: 18 Pulse Ox: 100 Airway Assessment Mouth opens: >3 cm Mallampati Score: II Teeth Condition: Dentures Labs Anesthesia Preop lab: CBC WBC 7.6 K/mm3 (4.4-11.0) 09/16/24 07:40 09/16/24 RBC 3.56 M/mm3 (4.2-5.4) L 09/16/24 07:40 09/16/24 Hgb 9.4 g/dL (12.0-15.0) L 09/16/24 07:40 09/16/24 Hct 30.9 % (37-47) L 09/16/24 07:40 09/16/24 Plt Count 203 K/mm3 (150-450) 09/16/24 07:40 09/16/24 CHEMISTRY Potassium 4.3 mmol/L (3.3-5.1) 09/16/24 07:40 09/16/24 Sodium 138 mmol/L (133-145) 09/16/24 07:40 09/16/24 Magnesium 1.7 mg/dL (1.6-2.6) 01/02/24 03:30 01/02/24 Phosphorus 3.4 mg/dL (2.5-4.9) 01/01/24 04:42 01/01/24 BUN 28 mg/dL (4-19) H 09/16/24 07:40 09/16/24 Creatinine 1.19 mg/dL (0.70-1.20) 09/16/24 07:40 09/16/24 Glucose 98 mg/dL (70-99) 09/16/24 07:40 09/16/24 POC Glucose 62 mg/dL (74-106) L 07/01/24 11:42 07/01/24 TSH 1.650 uIU/mL (0.358-3.740) 01/01/24 04:42 01/01/24 COAG PT 20.9 SECONDS (11.7-14.9) H 12/31/23 17:57 12/31/23 Pre-Assessment Diagnosis/Proposed Procedure Planned Operative Procedure(s): EGD Anesthesia History Anesthesia History - telemedicine physician: Anesthesia History - telemedicine physician Hx Hospitalization Yes: ANEMIA 10/21/24 08:35 Any Problems With Anesthesia No 10/21/24 08:35 Cholinesterase deficiency No 10/21/24 08:35 You/Your Family Experience No 10/21/24 08:35 fever (hyperthermia) with Relationship Recent Exposure to Contagious No 10/28/24 10:53 Disease Does patient have nerve No 10/21/24 08:35 stimulator Patient instructed to have device shut off --Does patient have Pacemaker No 10/28/24 10:53 or ICD? When Was Last Pacemaker Check QUESTION #4 FULL TEXT: You/Your Family Experience fever (hyperthermia) with Anesthesia Last Oral Intake Last Oral intake: Last Oral Intake NPO since 16:00 10/28/24 10:53 Meds taken in AM with sips of No 10/28/24 10:53 water? Meds patient instructed to take am of surgery PONV PONV - telemedicine physician: PONV - telemedicine physician Female Yes 10/21/24 08:35 HX of Motion Sickness No 10/21/24 08:35 HX of N/V After Surgery No 10/21/24 08:35 Non-Smoker Yes 10/21/24 08:35 Duration of Surgery greater No 10/21/24 08:35 than 60 minutes Number of Risk Factors 2 10/21/24 08:35 PONV Score Moderate Risk 10/21/24 08:35 Height & Weight Height & Weight: Anesthesia: Height & Weight Height 5 ft 6 in 10/28/24 10:53 Weight: 94.347 kg 10/28/24 10:53 Body Mass Index (BMI) 33.5 10/28/24 10:53 Respiratory Assessment Respiratory Assessment - telemedicine physician: Respiratory Tract Infection Hx - telemedicine physician Hx Respiratory Tract Infection No 10/21/24 08:35 STOP Sleep Apnea STOP Sleep Apnea - telemedicine physician: STOP Sleep Apnea - telemedicine physician Hx Hypertension Yes 10/21/24 08:35 Hx Sleep Apnea No 10/21/24 08:35 CPAP BIPAP Do you snore loudly (louder No 10/21/24 08:35 than talking or can be heard Do you often feel tired/ No 10/21/24 08:35 fatigued/ sleepy during daytime? Has anyone observed you stop No 10/21/24 08:35 breathing during sleep? STOP Results Negative 10/21/24 08:35 QUESTION #5 FULL TEXT : Do you snore loudly (louder than talking or can be heard through closed doors)? 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 Specify any problems Hx of Preganancy in last 3 No 10/21/24 08:35 Months Nurse Filling Out Transfusion [facility] 10/21/24 08:35 & Questions: Date: 10/21/24 10/21/24 08:35 Time: 08:37 10/21/24 08:35 Patient unable to answer at this time (ie. confused, unrespo /Reproduction History /Reproductive History - telemedicine physician: /Reproductive Hx- telemedicine physician Hx Now No 10/21/24 08:35 Gestational Age (in weeks): EDC: Hx Hx Para Hx Section SAB No 10/21/24 08:35 Active Medications Active Medications: Current Medications Generic Name Dose Route Start Last Admin Trade Name Freq PRN Reason Stop Dose Admin Lactated Ringer's 1,000 mls @ 15 mls/hr 10/28/24 10:45 10/28/24 11:00 IV 15 mls/hr .Q48H SEVEN Administration PFSH Medical History (Updated 10/21/24 @ 08:51 by Amirah Cooper) Post-menopausal History of ulceration Gastric reflux History of stress test History of irregular heartbeat Aortic stenosis Lives in senior living Wears glasses Wears partial dentures Marijuana use Discoloration of skin Open wound Insulin dependent diabetes mellitus Uses wheelchair Arthritis History of renal disease Low iron High cholesterol Back pain Dietary restriction History of GI bleed Non-smoker Chronic cough History of edema History of echocardiogram Cardiology follow-up encounter History of CHF (congestive heart failure) History of atrial fibrillation Palpitations Magnesium deficiency Diarrhea Asthma Vertebral osteomyelitis Discitis of thoracic region Intractable back pain Syndrome of inappropriate secretion of antidiuretic hormone Age-related incipient cataract of both eyes Iron deficiency anemia Generalized muscle weakness Morbid obesity with BMI of 40.0-44.9, adult Vitamin D deficiency Venous stasis ulcer with varicose veins Renal lesion Primary osteoarthritis of both knees History of colonic polyps Neurodermatitis Lymphedema of leg Lumbar facet arthropathy Benign essential hypertension Anemia Anxiety Depression CHF (congestive heart failure) A-fib COPD (chronic obstructive pulmonary disease) Kidney disease Diabetes Hyperlipidemia History of ESBL E. coli infection History of infection with vancomycin resistant Enterococcus (VRE) Altered mental status Home Medications ?Medication ?Instructions ?Recorded ?Last Taken ?Type cholecalciferol (vitamin D3) 25 25 mcg PO DAILY 12/31/23 Unknown History mcg (1,000 unit) capsule insulin lispro 100 unit/mL See Protocol subcut .TIDCM&HS 12/31/23 Unknown History subcutaneous pen (Humalog KwikPen (U-100) Insulin) nystatin 100,000 unit/gram topical 1 applic topical BID PRN skin 12/31/23 Unknown History powder irritation potassium chloride 10 mEq 20 meq PO DAILY 12/31/23 Unknown History capsule,extended release melatonin 3 mg tablet 6 mg (2 x 3 mg) PO QHS #0 tabs 01/08/24 Unknown Rx buspirone 5 mg tablet 5 mg PO BID 03/28/24 Unknown History dapagliflozin propanediol 5 mg 5 mg PO DAILY 03/28/24 Unknown History tablet (Farxiga) ferrous sulfate 325 mg (65 mg 325 mg PO QDAY 04/28/24 Unknown History iron) tablet furosemide 20 mg tablet 20 mg PO QAM 04/28/24 Unknown History pantoprazole 40 mg tablet,delayed 40 mg PO QDAY #90 tabs 04/28/24 Unknown Rx release cyclobenzaprine 10 mg tablet 5 mg PO TID 06/10/24 Unknown History acetaminophen 325 mg tablet 650 mg PO Q4H PRN Pain 1-08/16 Or 06/30/24 Unknown History Fever>100.7 albuterol sulfate 90 mcg/actuation 2 inh inhalation Q6H PRN shortness 06/30/24 Unknown History aerosol inhaler of breath or wheezing guaifenesin 400 mg tablet 400 mg PO Q4H PRN cough 06/30/24 Unknown History insulin glargine 100 unit/mL (3 8 unit subcut DAILY 06/30/24 07/01/24 History mL) subcutaneous pen (Lantus Solostar U-100 Insulin) polyethylene glycol 3350 17 17 g PO QODAY 06/30/24 Unknown History gram/dose oral powder (Miralax) apixaban 5 mg tablet (Eliquis) 5 mg PO BID #90 tabs 07/23/24 10/23/24 Rx carvedilol 3.125 mg tablet 3.125 mg PO BID #180 tabs 07/31/24 Unknown Rx docusate sodium 100 mg capsule 100 mg PO BID 10/09/24 Unknown History venlafaxine 150 mg 150 mg PO QDAY 10/09/24 Unknown History capsule,extended release 24 hr benzonatate 100 mg capsule 100 mg PO TID PRN cough 10/21/24 Unknown History magnesium hydroxide 400 mg/5 mL 30 ml PO DAILY PRN constipation 10/21/24 Unknown History oral suspension (Milk of Magnesia) Allergy/AdvReac Type Severity Reaction Status Date / Time No Known Allergies Allergy Verified 10/28/24 10:53 Family History Mother Alzheimer dementia Breast cancer Heart disease Brother Cystic fibrosis Surgical History History of colonoscopy S/P laminectomy History of tubal ligation Hx of cholecystectomy H/O section Social History Smoking Status: Never smoker alcohol intake: never Review of Systems (Anesthesia) ROS Narrative System reviewed and no additional complaints, except as documented.
--- NOTE | 2024-10-28 11:44 | PCM.HP.STD ---
HPI - General General Date of Admission: 10/28/24 Date of Service: 10/28/24 Chief Complaint: Anemia HPI Narrative DARYN SHAH, is a 78 F who presents with Chief Complaint: anemia [facility] ED 12.4.24 with low Hgb 6.9 BG established ..25 with anemia. Labs showing down trending Hgb since October 2023. Most recent Hgb 1.6.25 7.7 with FOBT+. Pt last colonoscopy in 2018 with no polyps per pt report. Pt was on Xarelto but changed to ASA 325mg daily. Pt denies any heartburn or blood in her stool. C.diff one year ago. *Start PPI daily, scheduled for EGD and colonoscopy EGD 07.01.24 - No gross lesions in the entire esophagus. - Non-bleeding gastric ulcer with no stigmata of bleeding. Biopsied. - No gross lesions in the third portion of the duodenum. Biopsied. Colonoscopy 07.01.24 - Diverticulosis in the recto-sigmoid colon, in the sigmoid colon and in the descending colon. - One 20 mm polyp in the cecum, removed with a hot snare. Resected and retrieved. Clip was placed. 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 OV 07.31.24 Pt here today to review results of endoscopy. She has no GI complaints. She denies dark or tarry stools. She continues with pantoprazole 40 mg daily and iron. She is having a bm every 2-3 days and feels mild constipation from the iron. Last hgb 11.4 (4.15.25). [facility] Medical History Post-menopausal History of ulceration Gastric reflux History of stress test History of irregular heartbeat Aortic stenosis Lives in halfway Wears glasses Wears partial dentures Marijuana use Discoloration of skin Open wound Insulin dependent diabetes mellitus Uses wheelchair Arthritis History of renal disease Low iron High cholesterol Back pain Dietary restriction History of GI bleed Non-smoker Chronic cough History of edema History of echocardiogram Cardiology follow-up encounter History of CHF (congestive heart failure) History of atrial fibrillation Palpitations Magnesium deficiency Diarrhea Asthma Vertebral osteomyelitis Discitis of thoracic region Intractable back pain Syndrome of inappropriate secretion of antidiuretic hormone Age-related incipient cataract of both eyes Iron deficiency anemia Generalized muscle weakness Morbid obesity with BMI of 40.0-44.9, adult Vitamin D deficiency Venous stasis ulcer with varicose veins Renal lesion Primary osteoarthritis of both knees History of colonic polyps Neurodermatitis Lymphedema of leg Lumbar facet arthropathy Benign essential hypertension Anemia Anxiety Depression CHF (congestive heart failure) A-fib COPD (chronic obstructive pulmonary disease) Kidney disease Diabetes Hyperlipidemia History of ESBL E. coli infection History of infection with vancomycin resistant Enterococcus (VRE) Altered mental status Home Medications ?Medication ?Instructions ?Recorded ?Last Taken ?Type cholecalciferol (vitamin D3) 25 25 mcg PO DAILY 12/31/23 Unknown History mcg (1,000 unit) capsule insulin lispro 100 unit/mL See Protocol subcut .TIDCM&HS 12/31/23 Unknown History subcutaneous pen (Humalog KwikPen (U-100) Insulin) nystatin 100,000 unit/gram topical 1 applic topical BID PRN skin 12/31/23 Unknown History powder irritation potassium chloride 10 mEq 20 meq PO DAILY 12/31/23 Unknown History capsule,extended release melatonin 3 mg tablet 6 mg (2 x 3 mg) PO QHS #0 tabs 01/08/24 Unknown Rx buspirone 5 mg tablet 5 mg PO BID 03/28/24 Unknown History dapagliflozin propanediol 5 mg 5 mg PO DAILY 03/28/24 Unknown History tablet (Farxiga) ferrous sulfate 325 mg (65 mg 325 mg PO QDAY 04/28/24 Unknown History iron) tablet furosemide 20 mg tablet 20 mg PO QAM 04/28/24 Unknown History pantoprazole 40 mg tablet,delayed 40 mg PO QDAY #90 tabs 04/28/24 Unknown Rx release cyclobenzaprine 10 mg tablet 5 mg PO TID 06/10/24 Unknown History acetaminophen 325 mg tablet 650 mg PO Q4H PRN Pain 1-08/16 Or 06/30/24 Unknown History Fever>100.7 albuterol sulfate 90 mcg/actuation 2 inh inhalation Q6H PRN shortness 06/30/24 Unknown History aerosol inhaler of breath or wheezing guaifenesin 400 mg tablet 400 mg PO Q4H PRN cough 06/30/24 Unknown History insulin glargine 100 unit/mL (3 8 unit subcut DAILY 06/30/24 07/01/24 History mL) subcutaneous pen (Lantus Solostar U-100 Insulin) polyethylene glycol 3350 17 17 g PO QODAY 06/30/24 Unknown History gram/dose oral powder (Miralax) apixaban 5 mg tablet (Eliquis) 5 mg PO BID #90 tabs 07/23/24 10/23/24 Rx carvedilol 3.125 mg tablet 3.125 mg PO BID #180 tabs 07/31/24 Unknown Rx docusate sodium 100 mg capsule 100 mg PO BID 10/09/24 Unknown History venlafaxine 150 mg 150 mg PO QDAY 10/09/24 Unknown History capsule,extended release 24 hr benzonatate 100 mg capsule 100 mg PO TID PRN cough 10/21/24 Unknown History magnesium hydroxide 400 mg/5 mL 30 ml PO DAILY PRN constipation 10/21/24 Unknown History oral suspension (Milk of Magnesia) Allergy/AdvReac Type Severity Reaction Status Date / Time No Known Allergies Allergy Verified 10/28/24 10:53 Family History Mother Alzheimer dementia Breast cancer Heart disease Brother Cystic fibrosis Surgical History History of colonoscopy S/P laminectomy History of tubal ligation Hx of cholecystectomy H/O section Social History Smoking Status: Never smoker alcohol intake: never ROS Constitutional Constitutional: Denies fatigue, fever(s), poor appetite, weight gain or weight loss Gastrointestinal Gastrointestinal: Denies belching, bloating, change in bowel habits, change in stool character, chewing difficulty, coffee ground emesis, constipation, cramping, diarrhea, dyspepsia, dysphagia, early satiety, excessive flatus, fecal incontinence, heartburn, hematemesis, hematochezia, hemorrhoids, loose stools, melena, nausea, odynophagia, rectal bleeding, tenesmus, vomiting or weight changes Vital Signs Vital Signs Vital Signs: 10/28/24 10:53 10/28/24 10:53 10/28/24 11:34 Temperature 98.6 F 98.6 F Temperature Source Temporal Pulse Rate 66 66 Respiratory Rate 18 18 Respiratory Pattern Normal Blood Pressure 105/92 H 105/92 H Blood Pressure Mean 96 Blood Pressure Source Monitor Blood Pressure Position Sitting Blood Pressure Location Left Arm Pulse Ox 100 100 Oxygen Delivery Method Room Air Weight Weight: 208 lb Body Mass Index (BMI) 33.5 Physical Exam Const alert, oriented x3, no apparent distress and healthy appearing General Appearance: cooperative GI normal to inspection, nondistended, normoactive bowel sounds, soft to palpation, non-tender and non-distended Percussion: normal to percussion Rectal Exam: deferred Results Lab / Micro Data Labs: Laboratory Results - last 24 hr 10/28/24 10:58: POC Glucose 114 H Assessment & Plan Assessment/Plan (1) Gastric ulcer: (2) Anemia: QUALIFIERS: Anemia type: iron deficiency PLAN: Assessment and Plan Assessment and Plan (1) Anemia: Status: Acute Qualifiers: Anemia type: iron deficiency Plan: This is a 78 yo female pt here today for f/u regarding her anemia. Pt underwent EGD and colonoscopy in June 2024 which showed diverticulosis. one polyp and a gastric ulcer. I reviewed these results with her. She was scheduled for repeat EGD to ensure healing of gastric ulcer. I recommended she continue daily PPI and iron supplement. Her hemoglobin has been stable with last one being 11.4 (07/22/24). Will continue to monitor this. She will f/u after repeat EGD. SHe has no GI concerns at this time. -Repeat EGD -Continue PPI and iron -Monitor Hgb -f/u after procedure (2) Gastric ulcer: Status: Acute
--- NOTE | 2024-10-28 12:20 | OP.EGD_ITS ---
Patient Name: Susanne Dupree Procedure Date: 10/28/2024 11:31 AM Date of : 1945 Age: 78 Procedure: Upper GI endoscopy Indications: Follow-up of peptic ulcer Providers: Jacinto Munoz DO Referring MD: April Pacheco Md Medicines: Monitored Anesthesia Care Patient Profile: This is a 78 year old female. Refer to note in patient chart for documentation of history and physical. Patient has symptoms of chronic epigastric abdominal pain. Complications: No immediate complications. Procedure: Pre-Anesthesia Assessment: - Prior to the procedure, a History and Physical was performed, and patient medications and allergies were reviewed. The patient is competent. The risks and benefits of the procedure and the sedation options and risks were discussed with the patient. All questions were answered and informed consent was obtained. Patient identification and proposed procedure were verified by the physician in the pre-procedure area. Mental Status Examination: alert and oriented. Airway Examination: normal oropharyngeal airway and neck mobility. Respiratory Examination: clear to auscultation. CV Examination: normal. ASA Grade Assessment: II - A patient with mild systemic disease. After reviewing the risks and benefits, the patient was deemed in satisfactory condition to undergo the procedure. The anesthesia plan was to use monitored anesthesia care (MAC). Immediately prior to administration of medications, the patient was re-assessed for adequacy to receive sedatives. The heart rate, respiratory rate, oxygen saturations, blood pressure, adequacy of pulmonary ventilation, and response to care were monitored throughout the procedure. The physical status of the patient was re-assessed after the procedure. After obtaining informed consent, the endoscope was passed under direct vision. Throughout the procedure, the patient's blood pressure, pulse, and oxygen saturations were monitored continuously. The Endoscope was introduced through the mouth, and advanced to the third part of the duodenum. Small bowel enteroscopy was deemed necessary. The upper GI endoscopy was accomplished without difficulty. The patient tolerated the procedure well. Scope In: 12:06:56 PM Scope Out: 12:09:58 PM Total Procedure Duration Time 0 hours 3 minutes 2 seconds Findings: The examined esophagus was normal. Patchy mild inflammation characterized by congestion (edema) and erythema was found in the gastric antrum. Biopsies were taken with a cold forceps for histology. Verification of patient identification for the specimen was done. Estimated blood loss was minimal. Biopsies were taken with a cold forceps for Helicobacter pylori testing. No gross lesions were noted in the entire examined duodenum. Impression: - Normal esophagus. - Chronic gastritis. Biopsied. - No gross lesions in the entire examined duodenum. Recommendation: - Await pathology results. - Return to GI clinic. - Continue present medications. Procedure Code(s): --- Professional --- 53794, Small intestinal endoscopy, enteroscopy beyond second portion of duodenum, not including ileum; with biopsy, single or multiple CPT copyright 2021 [employer]. All rights reserved. The codes documented in this report are preliminary and upon medical billing coder review may be revised to meet current compliance requirements. Jacinto Munoz DO 10/28/2024 12:20:01 PM This report has been signed electronically. Number of Addenda: 0 Note Initiated On: 10/28/2024 11:31 AM
--- NOTE | 2024-10-28 12:20 | OP.CCLET_ITS ---
10/28/2024 April Pacheco Md Re : Upper GI endoscopy procedure for Susanne Dupree Dear Dr. Pacheco This procedure was performed on Monday, October 28, 2024. My impressions and recommendations are as follows: Impressions : - Normal esophagus. - Chronic gastritis. Biopsied. - No gross lesions in the entire examined duodenum. Recommendations : - Await pathology results. - Return to GI clinic. - Continue present medications. My findings are described in the full procedure note, which is enclosed. If I can be of further assistance, please feel free to contact me at . Sincerely, Jacinto Munoz, 10/28/2024 12:20:01 PM This report has been signed electronically.
--- NOTE | 2024-10-28 12:28 | PCM.POST.ANE ---
Anesthesia: Postop Eval I Current Vital Signs Temperature: 97.8 F Pulse Rate: 82 Blood Pressure: 126/91 Respiratory Rate: 18 Pulse Ox: 100 Oxygen Delivery Method: Room Air Assessment Airway patent: No Spontaneous unlabored respirations: No Mental status: Asleep nausea: No Vomiting: No Anesthesia Complication: No Fluid Hydration Crystalloid volume administer (ml): 300 Total IV fluid infused: 300 Progress Note Anesthesia document: Postop Eval 1 completed: Yes
--- NOTE | 2024-10-28 12:32 | PCM.POSTANE2 ---
Anesthesia Postop Eval I Sum Postop Eval Completion status Anesthesia document: Postop Eval 1 completed: Yes Anesthesia Postop Eval I Summary Anesthesia Postop Eval I Summary: Anesthesia Postop Eval I: Assessment Summary Airway patent No 10/28/24 12:29 [email or web address] Spontaneous unlabored No 10/28/24 12:29 [email or web address] respirations Mental status Asleep 10/28/24 12:29 [email or web address] nausea No 10/28/24 12:29 [email or web address] Vomiting No 10/28/24 12:29 [email or web address] Anesthesia Postop Eval I: Fluid Summary Crystalloid volume administer 300 10/28/24 12:29 [email or web address] (ml) Colloids volume administered ( ml) Blood Product volume administered (ml) Total IV fluid infused 300 10/28/24 12:29 [email or web address] Anesthesia Postop Eval I: Summary Notes Anesthesia Complication No 10/28/24 12:29 [email or web address] Anesthesia Complication Comment: Post-operative progress note Anesthesia: Postop Eval II Evaluation Mental status: Awake and Calm Pain Level: 0 nausea: No Vomiting: No Progress Note Post-operative progress note: patient cooperative when encouraged to deep breath. RA SPO2 99% Complications Anesthesia Complication: No
== END 2024-10-28 13:19 | disposition home or self-care (01) ==
LOC: EN 10:28 → AC 10:32
PROVIDERS: PCP Internal Medicine; Referring Provider Internal Medicine; Visit Provider Internal Medicine Gastroenterology
PROC: 0DJ08ZZ Inspection of Upper Intestinal Tract, Via Natural or Artificial Opening Endoscopic (ICD-10-PCS; CPT 43235; principal; 2024-10-28 11:25)
DX: K29.50 Unspecified chronic gastritis without bleeding (principal); J44.9 Chronic obstructive pulmonary disease, unspecified; E11.9 Type 2 diabetes mellitus without complications; Z79.4 Long term (current) use of insulin; Z79.84 Long term (current) use of oral hypoglycemic drugs; K21.9 Gastro-esophageal reflux disease without esophagitis; E78.00 Pure hypercholesterolemia, unspecified; Z79.01 Long term (current) use of anticoagulants; D50.9 Iron deficiency anemia, unspecified; I10 Essential (primary) hypertension; Z90.49 Acquired absence of other specified parts of digestive tract; Z98.51 Tubal ligation status; K25.9 Gastric ulcer, unspecified as acute or chronic, without hemorrhage or perforation
CPT/HCPCS: 44361; 82962; 88305; 88342; J2405

== ENCOUNTER 2024-11-09 04:23 | Inpatient (IN) | payer MEDICARE, SELFPAY ==
[2024-11-09] VITALS (9 sets, daily range): BP systolic 98–128; BP diastolic 66–115; PULSE 66–110; RESP 15–22; TEMP 36.4–37; O2SAT 93–100; BMI 39.0; BMI 36.8
--- NOTE | 2024-11-09 04:56 | EKG12_ITS ---
Test Reason : FLUID Blood Pressure : */* mmHG Vent. Rate : 97 BPM Atrial Rate : * BPM P-R Int : * ms QRS Dur : 104 ms QT Int : 324 ms P-R-T Axes : * -43 114 degrees QTcB Int : 411 ms Atrial fibrillation with premature ventricular or aberrantly conducted complexes Left axis deviation Inferior infarct , age undetermined Anterolateral infarct , age undetermined Abnormal ECG Confirmed by FAINA REHMAN, BARBARA ([id number]), supervising film or videotape editor CLIF CANALES ([id number]) on 11/11/2024 7:47:01 AM Referred By: Confirmed By: BARBARA EISENBERG MD
--- NOTE | 2024-11-09 04:57 | ED.VIS.DYS ---
HPI History of Present Illness Chief Complaint: Shortness of Breath Informant: patient Narrative Narrative: Worsening dyspnea, orthopnea or leg swelling past few days. Diagnosed recent heart failure on Lasix daily. Wheelchair for transport. She does not wear oxygen. Chronic cough nothing worsening COPD diagnosis secondary to exposure from her spouse. No chest pains. Facility increase her Lasix to 40 mg of Lasix 3 days. She was on 20 previously. Prior similar symptoms: Yes PFSH [facility] Medical History Post-menopausal History of ulceration Gastric reflux History of stress test History of irregular heartbeat Aortic stenosis Lives in fci Wears glasses Wears partial dentures Marijuana use Discoloration of skin Open wound Insulin dependent diabetes mellitus Uses wheelchair Arthritis History of renal disease Low iron High cholesterol Back pain Dietary restriction History of GI bleed Non-smoker Chronic cough History of edema History of echocardiogram Cardiology follow-up encounter History of CHF (congestive heart failure) History of atrial fibrillation Palpitations Magnesium deficiency Diarrhea Asthma Vertebral osteomyelitis Discitis of thoracic region Intractable back pain Syndrome of inappropriate secretion of antidiuretic hormone Age-related incipient cataract of both eyes Iron deficiency anemia Generalized muscle weakness Morbid obesity with BMI of 40.0-44.9, adult Vitamin D deficiency Venous stasis ulcer with varicose veins Renal lesion Primary osteoarthritis of both knees History of colonic polyps Neurodermatitis Lymphedema of leg Lumbar facet arthropathy Benign essential hypertension Anemia Anxiety Depression CHF (congestive heart failure) A-fib COPD (chronic obstructive pulmonary disease) Kidney disease Diabetes Hyperlipidemia History of ESBL E. coli infection History of infection with vancomycin resistant Enterococcus (VRE) Altered mental status Home Medications ?Medication ?Instructions ?Recorded ?Last Taken ?Type cholecalciferol (vitamin D3) 25 25 mcg PO DAILY 12/31/23 Unknown History mcg (1,000 unit) capsule insulin lispro 100 unit/mL See Protocol subcut .TIDCM&HS 12/31/23 Unknown History subcutaneous pen (Humalog KwikPen (U-100) Insulin) nystatin 100,000 unit/gram topical 1 applic topical BID PRN skin 12/31/23 Unknown History powder irritation potassium chloride 10 mEq 20 meq PO DAILY 12/31/23 Unknown History capsule,extended release melatonin 3 mg tablet 6 mg (2 x 3 mg) PO QHS #0 tabs 01/08/24 Unknown Rx buspirone 5 mg tablet 5 mg PO BID 03/28/24 Unknown History dapagliflozin propanediol 5 mg 5 mg PO DAILY 03/28/24 Unknown History tablet (Farxiga) ferrous sulfate 325 mg (65 mg 325 mg PO QDAY 04/28/24 Unknown History iron) tablet furosemide 20 mg tablet 40 mg PO QAM 04/28/24 Unknown History pantoprazole 40 mg tablet,delayed 40 mg PO QDAY #90 tabs 04/28/24 Unknown Rx release cyclobenzaprine 10 mg tablet 5 mg PO TID 06/10/24 Unknown History acetaminophen 325 mg tablet 650 mg PO Q4H PRN Pain 1-08/16 Or 06/30/24 Unknown History Fever>100.7 albuterol sulfate 90 mcg/actuation 2 inh inhalation Q6H PRN shortness 06/30/24 Unknown History aerosol inhaler of breath or wheezing guaifenesin 400 mg tablet 400 mg PO Q4H PRN cough 06/30/24 Unknown History insulin glargine 100 unit/mL (3 8 unit subcut DAILY 06/30/24 07/01/24 History mL) subcutaneous pen (Lantus Solostar U-100 Insulin) polyethylene glycol 3350 17 17 g PO QODAY 06/30/24 Unknown History gram/dose oral powder (Miralax) apixaban 5 mg tablet (Eliquis) 5 mg PO BID #90 tabs 07/23/24 10/23/24 Rx carvedilol 3.125 mg tablet 3.125 mg PO BID #180 tabs 07/31/24 Unknown Rx docusate sodium 100 mg capsule 100 mg PO BID 10/09/24 Unknown History venlafaxine 150 mg 150 mg PO QDAY 10/09/24 Unknown History capsule,extended release 24 hr benzonatate 100 mg capsule 100 mg PO TID PRN cough 10/21/24 Unknown History magnesium hydroxide 400 mg/5 mL 30 ml PO DAILY PRN constipation 10/21/24 Unknown History oral suspension (Milk of Magnesia) Allergy/AdvReac Type Severity Reaction Status Date / Time No Known Allergies Allergy Verified 11/09/24 04:29 Family History Mother Alzheimer dementia Breast cancer Heart disease Brother Cystic fibrosis Surgical History History of colonoscopy S/P laminectomy History of tubal ligation Hx of cholecystectomy H/O section Social History Smoking Status: Never smoker alcohol intake: never ROS ROS ED Constitutional Constitutional ED: Denies chills, fever(s) or sweats ENT ENT ED: Denies sore throat Cardiovascular Cardiovascular: Reports leg edema and orthopnea; Denies chest pain, palpitations or racing heartbeat Respiratory/Chest Respiratory/Chest: Reports dyspnea and orthopnea; Denies cough or dyspnea on exertion Gastrointestinal Gastrointestinal: Denies abdominal pain, diarrhea, nausea or vomiting Genitourinary Genitourinary ED: Denies dysuria, hematuria or urinary frequency Musculoskeletal Musculoskeletal: Denies back pain, extremity pain or neck pain Integumentary Denies rash or wounds Neurologic Neurologic: Denies headache(s), paresthesias or weakness EXAM Physical Exam Const Vital Signs: 11/09/24 04:23 11/09/24 04:46 11/09/24 05:23 Temperature 97.5 F L Temperature Source Oral Pulse Rate 102 H 100 Respiratory Rate 22 H 22 H Respiratory Effort Normal Blood Pressure 126/81 H 98/72 Blood Pressure Mean 96 80 Pulse Ox 98 95 Oxygen Delivery Method Room Air Room Air 11/09/24 06:00 Temperature Temperature Source Pulse Rate 110 H Respiratory Rate 22 H Respiratory Effort Blood Pressure 122/87 H Blood Pressure Mean 98 Pulse Ox 100 Oxygen Delivery Method Room Air Positive well nourished and well developed Constitutional Narrative: Nasal cannula no distress. General Appearance ED: well developed and NAD HEENT Reports moist mucous membranes normocephalic and atraumatic Eyes General Eye ED: Yes normal appearance of both eyes Neck full ROM Chest Wall Chest: Negative for tenderness Resp normal respiratory effort and normal air movement Effort and Inspection: symmetric chest movement; Negative for respiratory distress Cardio regular rate and no murmurs Peripheral Pulses: pulses 2+ throughout GI normal to inspection, nondistended, normoactive bowel sounds and non-tender Palpation: Negative for guarding or rebound tenderness present Extremity normal to inspection Extremity Narrative: 2+ lower extremity edema. No calf tenderness. Pulses intact distally. General Extremety ED: Yes edema; Negative for tenderness General Extremity: edema Neuro oriented x3 and no sensory deficits noted Sensorium / Orientation: awake and alert Skin no rashes or lesions noted and no wounds MDM MDM MDM Narrative Medical decision making narrative: Interventions / MDM: Differential diagnosis: CHF exacerbation, failed outpatient therapy, renal insufficiency, chronic A-fib Diagnosis considered but do not suspect: N/A My EKG interpretation: A-fib rate of 97, no ST changes. PVC noted. Imaging independently reviewed and interpreted by myself: 1 view chest x-ray asymmetric edema, per radiology possible consolidation. No new cough or concerns for pneumonia. External documents reviewed: Echocardiogram August 2024 EF of 40 to 45%. Creatinine 1.19 in September 2024. Test considered but not ordered:N/A ED course: History of CHF worsening dyspnea orthopnea with leg swelling. No acute distress. She is a nasal cannula however presented 90% on room air. Will check basic labs for kidney function will check BNP and chest x-ray. EKG rate controlled A-fib. She is on chronic Eliquis. 0640: Chest x-ray right-sided edema, BNP 55,000 creatinine up to 1.58 up from 1.91 in September. She is ordered for IV Lasix to 40 mg. Her weight today is 109.7. Reviewing records 9 days ago had a weight of 94 kg. She has had a 15 kg weight gain 9 days with increasing of her Lasix to 40 mg over 3 days as an outpatient. Patient failing outpatient therapy with worsening renal insufficiency. I discussed with hospitalist Dr. Milton for admission. Re-evaluation: stable Disposition discussed with patient/family/significant other: Patient Case discussed with consulting clinician: Hospitalist This note was generated with [employer] dictation software. It may contain incorrect words, spelling, and punctuation that were not noted in checking the note before signing. Lab Data Attestation: I reviewed the patient's lab results. Labs: Laboratory Results - last 24 hr 11/09/24 04:35 WBC 8.8 RBC 3.93 L Hgb 10.5 L Hct 34.2 L MCV 87.0 MCH 26.7 L MCHC 30.7 L RDW Std Deviation 53.2 H RDW Coeff of Josiah 16.7 H Plt Count 292 MPV 10.5 Immature Gran % (Auto) 0.500 Neut % (Auto) 57.8 Lymph % (Auto) 32.8 [place] % (Auto) 6.5 Eos % (Auto) 1.6 Baso % (Auto) 0.8 Absolute Neuts (auto) 5.1 Absolute Lymphs (auto) 2.88 Nucleated RBC % 0 Sodium 138 Potassium 4.5 Chloride 99 Carbon Dioxide 24.8 Anion Gap 15 BUN 36 H Creatinine 1.58 H Estim Creat Clear Calc 38.00 L Est GFR (MDRD) Non-Af 34 L BUN/Creatinine Ratio 22.7 H Glucose 133 H [place] 9[place]1 [place] [address] H Radiography Diagnostic Testing: Clinical Impression(s) from Imaging Studies Chest X-Ray 11/09/24 05:10 IMPRESSION: Possible asymmetric edema or consolidation in the right central lung. Recommend follow up imaging. [facility] Discharge Plan Dx/Rx/DC Orders Clinical Impression: CHF exacerbation, Acute renal insufficiency, Failure of outpatient treatment, A-fib, Chronic anticoagulation Disposition Disposition: Acute Care [facility]
[2024-11-09 05:08] LABS: Hematocrit 34.2 % (37-47); Hemoglobin 10.5 g/dL (12.0-15.0); Immature Granulocytes Count 0.040 X10^3/uL (0.0-0.0); Mean Corp Hgb Conc 30.7 g/dL (32-36); Mean Corpuscular Volume 87.0 fL (81-99); Mean Platelet Vol. 10.5 fl (6.2-12.0); NRBC Flagged by Analyzer 0 % (0-5); Platelet Count 292 K/mm3 (150-450); RBC Distribution Width CV 16.7 % (11.6-14.6); RBC Distribution Width SD 53.2 fl (35.1-43.9); Red Blood Count 3.93 M/mm3 (4.2-5.4); White Blood Count 8.8 K/mm3 (4.4-11.0)
--- NOTE | 2024-11-09 05:10 | RAD_ITS ---
PROCEDURE: CHEST 1 VIEW (PORTABLE) 11/09/2024 REASON FOR EXAM: SOB TECHNIQUE: Frontal view of the chest. COMPARISON: 01/08/2024 FINDINGS: Lordotic positioning. Scoliosis. Mild cardiac enlargement. Chronic rotator cuff tears. Interval clearing of right-sided effusion. Blunted angles. No large effusion or pneumothorax. There is faint airspace opacity in the right central lung. RAD/Chest 1 View (Portable) IMPRESSION: Possible asymmetric edema or consolidation in the right central lung. Recommen d follow up imaging. Reading Location: [place] [id number]
--- OUTSIDE RECORDS SUMMARY | 2024-11-09 06:14 | XMS RPT_ITS | CCD ---
Author Organization [facility] Care Team Providers Care Commercial Crabber Name Role Phone Huan Mcdaniel Unavailable Unavailable Huan Mcdaniel Unavailable Unavailable Huan Mcdaniel Unavailable Unavailable Sparkle, Avirup Unavailable Unavailable Waqar Estrada Unavailable Unavailable Huan Mcdaniel Unavailable Unavailable Huan Mcdaniel Unavailable Unavailable Sparkle, Avirup Unavailable Unavailable Huan Mcdaniel Unavailable Unavailable Unavailable Dr. Huan Mcdaniel Primary Care Unavailab le Gio Thomas Referring Unavailable Gio Thomas Admitting Unavailable Angelique Clarke Attending UnavailHuan Perez MD Primary Care Provider [phone] Huan Mcdaniel MD Unavailable Diana Marcano MA Unavailable Unavailable Huan Mcdaniel MD Unavailable HUAN MCDANIEL Primary Care Unavailable FLAVIO MILES Attending Unavailable HUAN MCDANIEL Primary Care Unavailable EULA ROMEROASEShaheen Whitley Admitting Unavailable RENETTA ROMERO Attending Unavailable RU MILLS Consulting Unavailable HUAN MCDANIEL Primary Care Unavailable ANGELIQUE CLARKE Admitting Unavailab ANGELIQUE Lopez Attending Unavailab HUAN Aguilar Primary Care Unavailable MARLEEN SIGALA Referring Unavailable HUAN MCDANIEL Primary Care Unavailable HUAN MCDANIEL Primary Care Unavailable HUAN MCDANIEL Primary Care Unavailable SKINNY STEEL Referring Unavailable HUAN MCDANIEL Primary Care Unavailable RU ORTEGA Admitting Unavailable SAI MARIE Attending Unavailable BRAULIO ONEIL Attending Unavailable HUAN MCDANIEL Primary Care Unavailable Mukul REHMAN, Huan Patton Primary Care Provider [phone] Mukul REHMAN, Huan Patton Unavailable Carina LUCERO, Dominic Primary Care Provider Unavaila ble Lim NIC, Dominic Attending Provider Unavailable Limraya LUCERO, Dominic Referring Provider Unavailable Dr. Anthony Greer DO Attending Provider Percy CAMPOS, Dr. Cruz Emergency Provider Junior REHMAN, Dr. Chen Primary Care Provider Maryam Mullen MD, Dr. Chen Attending Provider Unavailmaria luisa Mullen MD, Dr. Chen Referring Provider Unavaila liyah PIZARROCChrissie Attending Provider Prem REHMAN, Dr. Natarajan Attending Provider Liam Amaro MD, Dr. Natarajan Referring Provider Unavail iesha Mullen MD, Dr. Chen Referring Provider Unavaila ble Dominic Strickland Primary Care Provider Unavaila Dominic Anderson Attending Provider Unavailable Dominic Strickland Referring Provider Unavailable Dr. Anthony Greer DO Attending Provider Percy CAMPOS, Dr. Cruz Emergency [...] liyah Munoz DO, Dr. Casey Attending Provider Dr. Jacinto Munoz DO Other Provider [phone] MARLEEN SIGALA Attending Unavailable HUAN MCDANIEL Primary Care Unavailable HUAN MCDANIEL Attending Unavailable HUAN MCDANIEL Referring Unavailable HUAN MCDANIEL Primary Care Unavailable MILKS, ELIZA A Attending Unavailable HUAN MCDANIEL Primary Care Unavailable MEGAN OSORIO Attending Unavailable HUAN MCDANIEL Primary Care Unavailable Junior REHMAN, Dr. Chen Primary Care Provider Unabradly Mullen MD, Dr. Chen Attending Provider Unavailmaria luisa Pedraza MD, Dr. Álvarez Attending Provider Mandy Simms Attending Provider Milo REHMAN, Dr. Álvarez Referring Provider Milo REHMAN, Dr. Álvarez Other Provider Unavailable Primary Care Provider Unavaillalo Mullen MD, Dr. Chen Primary Care Provider Unava jasvir Amaro MD, Dr. Natarajan Attending Provider Unavail able Junior REHMAN, Dr. Chen Referring Provider Unavailmaria luisa Pemberton NP-C, Yennifer Attending Provider Junior REHMAN, Dr. Chen Primary Care Provider Unava jasvir Amaro MD, Dr. Natarajan Attending Provider Unavail able Dominic Strickland Attending Unavailable Lim, Dominic Primary Care Unavailable Gudla April LUCERO Attending Unavailable Gudla, April Primary Care Unavailable Lim Dominic LUCERO Attending Unavailable Lim, Dominic Primary Care Unavailable Gudla, April Primary Care Unavailable Milo, Henri Consulting Unavailable Milo, Henri Attending Unavailable Milo, Henri Referring Unavailable Waqar Berman Attending Unavailable Waqar Berman Admitting Unavailable Waqar Berman Consulting Unavailable Lim, Dominic Primary Care Unavailable Ever Last Consulting Unavailable Lim Dominic LUCERO Attending Unavailable Lim NIC, Dominic Attending Unavailable Lim NIC, Dominic Attending Unavailable Gudla, April Primary Care Unavailable Gudla April LUCERO Attending Unavailable Lim NIC, Dominic Attending Unavailable Lim, Dominic Primary Care Unavailable Lim NIC, Dominic Attending Unavailable Lim, Dominic Primary Care Unavailable Lim NIC, Dominic Attending Unavailable Lim, Dominic Primary Care Unavailable Lim, Dominic Attending Unavailable Lim, Dominic Primary Care Unavailable Gudla, April Primary Care Unavailable Delgado Gillette Attending Unavailable Gudla, April Primary Care Unavailable Delgado Gillette Attending Unavailable Gudla, April Primary Care Unavailable Anthony Greer Attending Unavailable Gudla, April Primary Care Unavailable Milo, Henri Attending Unavailable Milo, Henri Referring Unavailable Jerman Zavala Attending Unavailable Lim, Dominic Primary Care Unavailable Waqar Berman Admitting Unavailable Ayo, Seun Attending Unavailable Waqar Berman Consulting Unavailable Lim, Dominic Primary Care Unavailable Jessee Lucas Consulting Unavailable Ever Last Consulting Unavailable Gudla OLSApril Attending Unavailable Lim, Dominic Primary Care Unavailable Lim Dominic LUCERO Attending Unavailable Ever Last Attending Unavailable Jessee Lucas Consulting Unavailable Ayo, Seun Attending Unavailable Ayo, Seun Consulting Unavailable Gudla, April Referring Unavailable Gudla, April Primary Care Unavailable Nilay LEMUS, Yennifer Attending Unavailable Gudla, April Referring Unavailable Gudla, April Primary Care Unavailable Mandy Mcallister Attending Unavailable Gudla, April Primary Care Unavailable Gudla, April Referring Unavailable Milo, Henri Attending Unavailable Gudla, April Referring Unavailable Gudla, April Primary Care Unavailable Chrissie Meza Attending Unavailable Gudla, April Referring Unavailable Gudla, April Primary Care Unavailable Friend, Jacinto Consulting Unavailable Friend, Jacinto Attending Unavailable Gudla, April Referring Unavailable Gudla, April Primary Care Unavailable Friend, Jacinto Consulting Unavailable Friend, Jacinto Attending Unavailable Gudla, April Primary Care Unavailable Gudla OLSApril Attending Unavailable Gudla, April Primary Care Unavailable Gudla April LUCERO Attending Unavailable Gudla April LUCERO Referring Unavailable Dominic Strickland Attending Unavailable Lim Dominic LUCERO Attending Unavailable Gudla April LUCERO Attending Unavailable Gudla, April Primary Care Unavailable Delgado Gillette Attending Unavailable Gudla April LUCERO Attending Unavailable Lim, Dominic Primary Care Unavailable Lim Dominic LUCERO Attending Unavailable Lim OLS, Dominic Primary Care Unavailable Lim, Dominic Primary Care Unavailable Lim Dominic LUCERO Attending Unavailable Gudla, April Referring Unavailable Gudla, April Primary Care Unavailable Friend, Jacinto Attending Unavailable Gudla, April Referring Unavailable Friend, Jacinto Attending Unavailable Gudla, April Primary Care Unavailable Nagajothi, Nagapradee Attending Unavailabl e Lim, Dominic Primary Care Unavailable Gudla OLS, April Attending Unavailable Lim, Dominic Primary Care Unavailable Lim OLS, Dominic Attending Unavailable Lim OLS, Dominic Referring Unavailable Lim OLS, Dominic Attending Unavailable Lim OLS, Dominic Primary Care Unavailable Lim OLS, Dominic Referring Unavailable Lim OLS, Dominic Attending Unavailable Lmi OLS, Dominic Primary Care Unavailable Gudla, April Primary Care Unavailable Delgado Gillette Attending Unavailable Gudla, April Primary Care Unavailable Gudla OLS, April Attending Unavailable Prme LUCERO, Delgado Referring Unavailable Prem LUCERO, Delgado Attending Unavailable Gudla, April Primary Care Unavailable Gudla OLS, April Attending Unavailable Lim, Dominic Primary Care Unavailable Gudla OLS, April Attending Unavailable Gudla, April Primary Care Unavailable Delgado Gillette Attending Unavailable Prem LUCERO, Delgado Referring Unavailable Gudla, April Primary Care Unavailable Allergies Allergy Classification Reported Allergen(s) Allergy Type Date of Onset Reaction(s) Facility venlafaxine (7 sources) venlafaxine; Translations: [Effexor] Drug Allergy Edema [facility] Work Phone: (20 sources) venlafaxine; Translations: [Effexor] Drug Allergy Edema [facility] Work Phone: (5 sources) venlafaxine; Translations: [VENLAFAXINE] Drug Allergy 08-30-2022 [facility] Medications Current Medications Medication Drug Class(es) Dates [...] needed for Pain 1-5/10 Or Fever>100.7 0 0 January 08, 2024 12:00am June 30, 2024 11:16am Start: 11-19-2023 take 2 tablets by mo uth every six hours for pain acetaminophen (Tylenol) [...] Start: 10-10-2023 take 1 tablet by ofelia every six hours as needed 650 mg, oral, Every 6 hours PRN, pain mild (1-3), first line, pain moderate (4-6), first line, headaches, fever (temp greater than 38.0 C), Starting on Sun10/10/23 at 0522, If ordered PRN for pain, nurse is permitted to administer this medication for higher pain scores based on patient preference? Yes [id number] 200 actuat albuterol 0.09 mg/actuat metered dose [...] 12-Aug-2019 Active apixaban 5 mg oral tablet (4 sources) Factor Xa Inhibitor Start: 07-23-2024 take 1 tablet by mouth twice daily Apixaban (Eliquis) 5 mg tablet Active 5 mg PO TWICE A DAY 90 July 23, 2024 12:00am atenolol 50 mg oral tablet [...] Start: 02-03-2019 take 0.5 tablet by m out twice daily Atenolol 100 MG Oral Tablet [...] at bedtime. 0 12/12/2022 Discontinued (Therapy completed) benzonatate 100 mg oral capsule (1 source) Non-narcotic Antitussive Start: 10-21-2024 take 1 capsule by mouth three times daily as needed for cough Benzonatate 100 mg capsule Active 100 mg PO THREE TIMES A DAY as needed for cough October 21, 2024 12:00am busPIRone hydrochloride 5 mg oral tablet (9 sources) Start: 03-28-2024 take 1 tablet by mouth twice daily Buspirone 5 mg tablet Active 5 mg PO TWICE A DAY March 28, 2024 1:00am carvedilol 3.125 mg oral tablet (14 sources) alpha-Adrenergic Nancy, beta-Adrenergic Nancy Start: 07-31-2024 take 1 tablet by mouth twice daily Carvedilol 3.125 mg tablet Active 3.125 mg PO TWICE A DAY 180 3 July 31, 2024 3:29pm Start: 01-08-2024 End: 07-23-2024 take 1 tablet by mouth twice daily Carvedilol 3.125 mg Tablet Discontinued 3.125 mg PO TWICE A DAY 0 0 January 08, 2024 12:00am July 23, 2024 [...] 11/19/2023 Active dapagliflozin 5 mg oral tablet (10 sources) Sodium-Glucose Cotransporter 2 Inhibitor Start: 03-28-2024 [...] dose on Sun10/14/23 at 2100 docusate sodium 100 mg oral capsule (3 sources) Start: 10-09-2024 take 1 capsule by mouth twice daily Docusate Sodium 100 mg capsule Active 100 mg PO TWICE A DAY October 09, 2024 12:00am Start: 11-09-2023 End: 11-11-2023 docusate sodium 50 mg / sennosides, long term 8.6 mg oral tablet (1 source) Start: [...] (one) time per week. 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 2 mL 11 11/26/2023 Active Start: 11-26-2023 inject 3 mg [...] skin once every 24 hours. 11/19/2023 Active ferrous sulfate 325 mg oral tablet (10 sources) Start: 04-28-2024 take 1 tablet by [...] (Therapy completed) furosemide 20 mg oral tablet (10 sources) Loop Diuretic Start: 04-28-2024 take 1 [...] Start: 10-10-2023 guaiFENesin 400 mg oral tablet (8 sources) Start: 06-30-2024 take 1 tablet by [...] ml insulin glargine 100 unt/ml pen injector (8 sources) Insulin Analog Start: 06-30-2024 Insulin Glargi ne (Lantus Solostar U-100 Insulin) 100 unit/mL (3 mL) insulin pen Active 8 U SC DAILY June 30, 2024 12:00am 3 ml insulin lispro 100 unt/ml pen injector (17 sources) Insulin Analog Start: 02-05-2024 Admelog SoloSt [...] Blood Glucose is greater than 400 mg/dL Magnesium Hydroxide (2 sources) Start: 10-21-2024 take 1 mL by mouth o nce daily as needed for constipation Magnesium Hydroxide (Milk Of Magnesia) 400 mg/5 mL suspension Active 30 mL PO DAILY as needed for constipation October 21, 2024 12:00am Start: 10-10-2023 take 10 mL by mouth every twen ty-four hours as needed magnesium oxide 400 mg oral tablet (12 sources) Start: 10-10-2023 take 200 mg by mouth once daily 200 mg, oral, Daily, First dose on Sun10/10/23 at 0900 End: 11-20-2023 melatonin 3 mg oral tablet (9 sources) Start: 01-08-2024 take 2 tablets by mouth at bedtime Melatonin 3 mg Tablet Active 6 mg PO AT BEDTIME 0 0 January 08, 2024 12:00am multivit-minerals/f olic acid (ADULT MULTIVITAMIN GUMMIES ORAL) (3 sources) take 1 dose by mouth once daily multivit-minerals/ folic acid (ADULT MULTIVITAMIN GUMMIES ORAL) Take 1 each by mouth once daily. Active nystatin 100 unt/mg topical powder (15 sources) Polyene Antifungal Start: 11-19-2023 End: 02-28-2024 [...] Start: 11-14-2023 take 1 tablet by ofelia every four hours as needed Start: 11-09-2023 [...] pantoprazole 40 mg delayed release oral tablet (9 sources) Proton Pump Inhibitor Start: 04-28-2024 take [...] August discolor urine (orange). polyethylene glycol 3350 61980 mg powder for oral solution (20 sources) [...] mouth once daily at bedtime. 10/15/2023 Active sennosides, long term 8.6 mg oral tablet (6 sources) Start: 11-11-2023 take 2 tablets by mouth twice daily sennosides (Senokot) 8.6 mg tablet Indications: Discitis, unspecified, thoracic region Take 2 tablets (17.2 mg) by mouth 2 times a day. 11/19/2023 Active 24 hr venlafaxine 150 mg extended release oral capsule (20 sources) Serotonin and Norepinephrine Reuptake Inhibitor Start: 10-09-2024 take 1 capsule by mouth once daily Venlafaxine 150 mg capsule,extended release 24hr Active 150 mg PO daily October 09, 2024 12:00am Start: 02-05-2024 venlafaxine XR (Effexor-XR) 75 mg [...] Start: 10-10-2023 take 1 capsule by mo [facility] once daily 75 mg, oral, Daily, First dose on Sun10/10/23 at 0900, Capsule may be swallowed whole, or may be opened and its contents sprinkled on applesauce if consumed immediately without chewing. Do not crush or chew. Start: 06-16-2022 End: 10-09-2024 take 1 capsule by mouth once daily Venlafaxine 75 mg capsule,extended release 24hr Discontinued 150 mg PO DAILY December 31, 2023 12:00am October 09, 2024 2:49pm Start: 07-08-2020 take 1 tablet by [facility] once daily Venlafaxine HCl ER 75 MG Oral Tablet Extended Release 24 Hour Take 1 tablet daily Quantity: 30 Refills: 9 Ordered: 13-Oct-2020 Huan Mcdaniel MD Start : 08-Jul-2020 Active take 1 capsule by [facility] once daily Venlafaxine HCl ER 75 MG Oral Capsule Extended Release 24 Hour TAKE 1 CAPSULE Daily Quantity: 90 Refills: 1 Ordered: 28-Mar-2022 Huan Mcdaniel MD Active (2 sources) Start: 11-19-2023 Start: 11-16-2023 (2 sources) Start: 11-20-2023 Start: 11-17-2023 End: 11-17-2023 Completed/Discontinued Medications Medication Drug Class(es) Dates Sig (Normalized) Sig (Original) ascorbic acid 500 mg oral tablet (9 sources) Vitamin C Start: 01-08-2024 End: 10-09-2024 take 1 tablet by mouth twice daily at mealtime Ascorbic Acid (Vitamin C) 500 mg Tablet Discontinued 500 mg PO TWICE DAILY WITH MEALS 0 0 January 08, 2024 12:00am October 09, 2024 2:52pm aspirin 325 mg oral tablet (9 sources) Platelet Aggregation Inhibitor, Nonsteroidal Anti-inflammatory Drug [...] recon soln Discontinued 2 g IV Q12H 12 0 January 04, 2024 12:00am April 28, 2024 [...] Tract Infection cephalexin 500 mg oral capsule (13 sources) Cephalosporin Antibacterial Start: 03-28-2024 End: 04-28-2024 [...] DO Active dexamethasone 6 mg oral tablet (9 sources) Corticosteroid Start: 01-08-2024 End: 03-28-2024 take 1 tablet by mouth once daily Dexamethasone 6 mg tablet Discontinued 6 mg PO DAILY 1 1 January 08, 2024 12:00am March 28, 2024 [...] On Sun10/10/23 at 0405, For 1 dose Drug or medicament (substance) (2 sources) Start: 11-14-2023 End: 11-14-2023 End: 11-20-2023 empagliflozin 10 mg oral tablet (9 sources) Sodium-Glucose Cotransporter 2 Inhibitor Start: 01-08-2024 End: 03-28-2024 take 1 tablet by mouth once daily Empagliflozin (Jardiance) 10 mg Tablet Discontinued 10 mg PO DAILY 0 January 08, 2024 12:00am March 28, 2024 1:09pm escitalopram 5 mg oral tablet (10 sources) Serotonin Reuptake Inhibitor Start: 10-09-2024 End: 10-21-2024 take 1 tablet by mouth once daily Escitalopram Oxalate 5 mg tablet Discontinued 5 mg PO daily October 09, 2024 12:00am October 21, 2024 8:33am Start: 06-30-2024 End: 10-09-2024 Escitalopram Oxalate (Lexapr o) 10 mg tablet Discontinued 15 mg PO DAILY June 30, 2024 12:00am October 09, 2024 2:51pm famotidine 10 mg oral tablet (18 sources) Histamine-2 Receptor Antagonist Start: 04-28-2024 End: 06-30-2024 take 1 tablet by mouth once daily Famotidine 10 mg tablet Discontinued 10 mg PO daily April 28, 2024 1:00am June 30, 2024 11:07am Start: 01-08-2024 End: 04-28-2024 take 1 tablet by mouth twice daily Famotidine 20 mg Tablet Discontinued 20 mg PO TWICE A DAY 0 0 January 08, 2024 12:00am April 28, [...] 09-Sep-2020 Amelie Castaneda Start : 25-Jul-2019 Active L.Acidoph,Saliva-B.Bif-S.The rm 175 mg Capsule (9 sources) Start: 01-08-2024 End: 04-28-2024 take 1 capsule by mouth twice daily L.Acidoph,Saliva-B.Bif-S.Therm 175 mg Capsule Discontinued 1 NMA PO TWICE A DAY 0 January 08, 2024 12:00am April 28, 2024 12:50pm Start: 01-08-2024 End: 04-28-2024 take 1 capsule by mouth twice daily L.Acidoph,Saliva-B.Bif-S.Therm 175 mg Ca psule Discontinued 1 NMA PO TWICE A DAY 0 January 08, 2024 12:00am April 28, 2024 12:50pm Start: 01-08-2024 End: 04-28-2024 take 1 capsule by mouth twice daily L.Acidoph,Saliva-B.Bif-S.Therm 175 mg Ca psule Discontinued 1 NMA [...] Amide Local Anesthetic Start: 11-19-2023 End: 11-19-2023 lisinopril 2.5 mg oral tablet (20 sources) Angiotensin Converting Enzyme Inhibitor Start: 01-08-2024 End: 10-09-2024 take 1 tablet by mouth once daily Lisinopril 2.5 mg Tablet Discontinued 2.5 mg PO DAILY 0 January 08, 2024 12:00am October 09, 2024 3:10pm Start: 02-03-2019 End: 05-20-2024 LORazepam 0.5 mg oral tablet (20 sources) [...] succinate 25 mg extended release oral tablet (4 sources) beta-Adrenergic Nancy Start: 07-23-2024 End: 07-31-2024 take 1 tablet by mouth once daily Metoprolol Succinate 25 mg tablet extended release 24 hr Discontinued 25 mg PO daily 90 July 23, 2024 12:00am July 31, 2024 3:29pm 5 ml midazolam 1 mg/ml injection (2 sources) Benzodiazepine Start: 11-13-2023 End: 11-13-2023 1 ml morphine sulfate 2 mg/ml prefilled syringe (1 source) Opioid Agonist Start: 10-10-2023 End: 10-10-2023 2 mg, intravenous, Once, On Sun10/10/23 at 0405, For 1 dose Multivitamin (Daily Multi-Vitamin) tablet (9 sources) Start: 12-31-2023 End: 10-09-2024 Multivitamin (Daily Multi-Vitamin) tablet Discontinued 1 {tbl} PO DAILY December 31, 2023 12:00am October 09, 2024 2:53pm Start: 12-31-2023 Multivitamin ( Daily Multi-Vitamin) tablet Active 1 {tbl} PO DAILY December 31, 2023 12:00am Start: 12-31-2023 Multivitamin ( Daily Multi-Vitamin) tablet Active 1 {tbl} PO DAILY December 30, 2023 11:00pm mupirocin 0.02 mg/mg topical ointment (20 sources) [...] intravenously every six hours polyethylene glycol 3350 266571 mg / potassium chloride 2970 mg / sodium bicarbonate 6740 mg / sodium chloride 5860 mg / sodium sulfate 52147 mg powder for oral solution (9 sources) Osmotic Laxative Start: 04-28-2024 End: 06-30-2024 Peg 3350-Electrolyte s (Golytely) 236-22.74-6.74 -5.86 gram recon soln Discontinued 240 mL PO Q10M 4000 0 April 28, 2024 1:00am June 30, 2024 [...] Huan Mcdaniel MD Start : 05-Feb-2019 Active Sennosides 8.6 mg tablet (9 sources) Start: 12-31-2023 End: 10-09-2024 take 2 tablets by mouth twice daily as needed for constipation Sennosides 8.6 mg tablet Discontinued 17.2 mg PO TWICE A DAY as needed for constipation December 31, 2023 12:00am October 09, 2024 2:48pm Start: 12-31-2023 take 2 tablets by mo ut twice daily as needed for constipation Sennosides 8.6 mg tablet Active 17.2 mg PO TWICE A DAY as needed for constipation December 31, 2023 12:00am Start: 12-31-2023 take 2 tablets by [facility] twice daily Sennosides 8.6 mg tablet Active 17.2 mg PO TWICE A DAY December 30, 2023 11:00pm 1000 ml sodium chloride 9 mg/ml injection [...] Mcdaniel MD Start : 21-Aug-2019 Active Vancomycin (20 sources) Glycopeptide Antibacterial Start: 01-04-2024 End: 04-28-2024 Vancomycin 2 gram recon soln Discontinued 2 g IV Q36H 0 0 January 04, 2024 12:11pm April 28, [...] Classification Problem Date Documented Da te Episodic/Chronic Acute bronchitis (20 sources) Acute bronchitis; Translations: [...] Translations: [Atrial fibrillation] Onset: 08-30-2022 10-13-2022 Chronic Cataract (14 sources) Incipient senile cataract; Translations: [Other age-related incipient cataract, bilateral] Onset: 03-13-2023 03-13-2023 Chronic Chronic kidney disease (20 sources) Chronic kidney disease stage 3; Translations: [Diabetes with renal manifestations, type II or unspecified type, not stated as uncontrolled] Onset: 08-30-2022 Resolved: 08-31-2022 08-31-2022 Chronic Chronic obstructive pulmonary disease and bronchiectasis (10 sources) Chronic obstructive lung disease; Translations: [Chronic obstructive pulmonary disease, unspecified] Onset: 07-08-2024 06-10-2024 Chronic Congestive heart failure; nonhypertensive (20 sources) Congestive heart failure; Translations: [Heart failure, unspecified] Onset: 06-13-2024 06-10-2024 Chronic Deficiency and other anemia (2 sources) Iron deficiency anemia, unspecified; Translations: [Iron deficiency anemia, unspecified] Onset: 09-15-2022 Episodic Deficiency and other anemia (20 sources) Iron deficiency anemia; Translations: [Iron deficiency anemia, unspecified] Onset: 10-12-2022 10-12-2022 Episodic Deficiency and other anemia (9 sources) Chronic anemia; Translations: [Anemia, unspecified] 04-05-2024 [...] 08-30-2022 08-30-2022 Chronic Gastroduodenal ulcer (except hemorrhage) (10 sources) Gastric ulcer; Translations: [Gastric ulcer, unspecified as acute or chronic, without hemorrhage or perforation] Onset: 11-03-2024 07-31-2024 Chronic Heart valve disorders (5 sources) Aortic valve stenosis; Translations: [Nonrheumatic aortic [...] caused by tuberculosis or sexually transmitted disease) (18 sources) Osteomyelitis of vertebra, thoracic region; Translations: [...] deficiency] Onset: 08-30-2022 08-30-2022 Chronic Nutritional deficiencies (17 sources) Magnesium deficiency; Translations: [Disorders of magnesium [...] other medications] Episodic Other aftercare (1 source) skilled nursing (current) use of anticoagulants; Translations: [skilled nursing (current) use of anticoagulants] Onset: 09-15-2022 Episodic Other aftercare (1 source) termite control servicer (current) use of oral hypoglycemic drugs; Translations: [termite control servicer (current) use of oral hypoglycemic drugs] Onset: 09-15-2022 Episodic Other aftercare (1 source) Other termite control servicer (current) drug therapy; Translations: [Other fpc (current) drug therapy] Onset: 10-06-2024 Episodic Other connective tissue disease (20 sources) Muscle weakness; Translations: [Muscle weakness (generalized)] Onset: 10-12-2022 10-12-2022 Episodic Other diseases of kidney and ureters (9 sources) Kidney disease; Translations: [Disorder of kidney [...] Chronic Other nutritional; endocrine; and metabolic disorders (10 sources) Hypomagnesemia; Translations: [Hypomagnesemia] 03-13-2023 Chronic Other [...] states] Onset: 02-28-2024 Episodic Residual codes; unclassified (9 sources) Altered mental status; Translations: [Altered mental status, unspecified] 01-16-2024 Episodic Residual codes; unclassified (9 sources) Dependent edema; Translations: [Edema, unspecified] 12-26-2023 [...] ulcer] Onset: 08-30-2022 08-30-2022 Episodic Viral infection (9 sources) Disease caused by 2019-nCoV; Translations: [COVID-19] 12-31-2023 Episodic Viral infection (2 sources) COVID-19; Translations: [COVID-19] Onset: 01-08-2024 Past or Other Problems Problem Classification Problem Date Documented Da te Episodic/Chronic Abdominal pain (1 source) Epigastric pain; Translations: [Epigastric pain] Onset: 04-01-202 5 Episodic Bacterial infection; unspecified site (13 sources) Bacteremia; Translations: [Bacteremia] Onset: 4 Episodic Cardiac dysrhythmias (20 sources) Palpitations; Translations: [Palpitations] Onset: 3 Resolved: 3 08-30-2022 Episodic Coagulation and hemorrhagic disorders (16 sources) Thrombocytopenia, unspecified; Translations: [Blood coagulation disorder] Onset: 3 Resolved: 3 10-12-2022 Chronic Deficiency and other anemia (3 sources) Iron deficiency anemia secondary to inadequate dietary iron intake; Translations: [Other iron deficiency anemias] 10-13-2022 Episodic Deficiency and other anemia (4 sources) Other iron deficiency anemias; Translations: [Other iron deficiency anemias] Onset: 3 Episodic Fluid and electrolyte disorders (20 sources) Hypokalemia; Translations: [Hypopotassemia] Onset: 3 Resolved: 4 08-30-2022 Episodic Gastrointestinal hemorrhage (10 sources) Gastrointestinal hemorrhage; Translations: [Gastrointestinal hemorrhage, unspecified] [...] Resolved: 2 Episodic Pleurisy; pneumothorax; pulmonary collapse (10 sources) Pleural effusion; Translations: [Pleural effusion, not elsewhere classified] Onset: 4 12-31-2023 Episodic Pneumonia (except that caused by tuberculosis or sexually transmitted disease) (10 sources) Pneumonia; Translations: [Pneumonia, unspecified organism] Onset: 4 12-31-2023 Episodic Residual codes; unclassified (1 source) Altered mental status, unspecified; Translations: [Altered mental status, unspecified] Onset: 4 Episodic Residual codes; unclassified (1 source) Edema, unspecified; Translations: [Edema, unspecified] Onset: 5 Episodic Respiratory failure; insufficiency; arrest (adult) (13 sources) Alveolar hypoventilation; Translations: [Respiratory failure, unspecified [...] sources) Prescribed medication regimen behavior finding; Translations: [skilled nursing prescription benzodiazepine use] Unclassified (14 sources) Onset: 3 Resolved: 4 10-13-2022 NEGATED: Highlighted row has not occurred!Residual codes; unclassified (20 sources) Disease Episodic Results Test Name Value Interpretation Reference Range Facility Bedside Glucoseon 10-28-2024 FINGERSTICK GLU 114 mg/dL High 74-106 [facility] Comment on above: Result Comment: ASHU KELLY OF PATIENT CARE PER NURSING PROTOCOL Performed By: #### L 501.080 ####[facility] [address] [place], [address] EGD Reporton 10-28-2024 EGD Report Normal [facility] deOrdered By: Jacinto Friend on 10-28-2024 Glucose [Mass/Vol] 114 mg/dL High 74-106 [facility] Comment on above: MANAGEMENT OF PATIEN T CARE PER NURSING PROTOCOL MR/POSTOP.ANEon 10-28-2024 MR/POSTOP.ANE [facility] MR/[id number] 10-28-2024 MR/POSTOPAN2 [facility] MR/PAT.ANEon 10-21-2024 MR/PAT.ANE [facility] Cardiology Visit Reporton Cardiology Visit Report [facility] CNPNon 09-19-2024 PALOMAN Telephone (AGCARDPOB ) -------- DARNY SHAH ([id number]) 1945 F Date Time Provider Department 09/19/24 LAURENT GARZA AGCARDPOHola During your visit today, we recorded the following information about you: Laurent Garza APRN.PALOMA 09/19/2024 3:31 PM Signed TAVR clinic referral received from Dr. Milo Mendoza. Chart reviewed, scanned records and imaging appreciated. 78 yo female with PMHx that includes HFrEF, a fib (previously on xarelto), DM, renal disease, anemia, anxiety/depression, OM, OA, GIB, PUD, COPD. Resides at [facility] since 6 months ago. Wheelchair bound, does stand for brief transfers with assist. Notes she gave up will to live about 5 years ago due to frustrations with family situations, and just had gradual debilitation. Retired [employer]. Of note rivaraxoban was stopped prior due to anemia? Upper endoscopy 06/2024 showed non bleedin gastric ulcer, and most recent Hgb 11.4. Currently denies SOB, chest pain, palpitations. Occ lh/dizziness, no near syncope or syncope. Occ BLE edema, does not recall if she is on diuretics. No change in energy levels, always kind of tired. ECHO report and images available. Offered TAVR clinic this SunSEPTEMBER 24 at 1030 - 1000 arrival - HVC, silver elevators, 3rd floor She would like to take appt and is going to speak with her charge nurse to inquire on transportation arrangements. ECHO 08/13/24 Mean/peak 40? 1+ AI EF 40-45% Laurent Garza APRN.GLOVE [employer]ER Allergies As of Date: 09/19/2024 (Not on File) Date Reviewed: Never Reviewed Problem List As Of Date: 09/19/2024 (None) Encounter Status:Closed by LAURENT GARZA on 09/19/24 [facility] CNPN Telephone (AGCARDPOB ) -------- ALYSSADARYNHARSHIL ARGUELLES ([id number]) 1945 F Date Time Provider Department 09/19/24 LAURENT GARZA AGCARDPOB During your visit today, we recorded the following information about you: Laurent Garza APRN.PALOMA 09/19/2024 3:31 PM Signed TAVR clinic referral received from Dr. Milo Mendoza. Chart reviewed, scanned records and imaging appreciated. 78 yo female with PMHx that includes HFrEF, a fib (previously on xarelto), DM, renal disease, anemia, anxiety/depression, OM, OA, GIB, PUD, COPD. Resides at [facility] since 6 months ago. Wheelchair bound, does stand for brief transfers with assist. Notes she gave up will to live about 5 years ago due to frustrations with family situations, and just had gradual debilitation. Retired [employer]. Of note rivaraxoban was stopped prior due to anemia? Upper endoscopy 06/2024 showed non bleedin gastric ulcer, and most recent Hgb 11.4. Currently denies SOB, chest pain, palpitations. Occ lh/dizziness, no near syncope or syncope. Occ BLE edema, does not recall if she is on diuretics. No change in energy levels, always kind of tired. ECHO report and images available. Offered TAVR clinic this SunSEPTEMBER 24 at 1030 - 1000 arrival - HVC, silver elevators, 3rd floor She would like to take appt and is going to speak with her charge nurse to inquire on transportation arrangements. ECHO 08/13/24 Mean/peak 40? 1+ AI EF 40-45% Laurent Garza APRN.GLOVE [employer] Gamaliel Tilley MA 09/19/2024 4:07 PM Signed Spoke with nurse at [facility] [phone], [address] They're unable to arrange transportation for 09/24/24 office visit and reschedule to 11/12/24 10:30am. I faxed appt reminder with our address on it to [phone]. Allergies As of Date: 09/19/2024 (Not on File) Date Reviewed: Never Reviewed Problem List As Of Date: 09/19/2024 (None) Encounter Status:Closed by LAURENT GARZA on 09/19/24 [facility] Andreina 09-17-2024 CNPN Telephone (AGBloxyACC) -------- DARYN SHAH ([id number]) 1945 F Date Time Provider Department 09/17/24 LAURENT GARZA During your visit today, we recorded the following information about you: Pearl Dutta 09/17/2024 3:50 PM Signed Referral received and scanned to chart. Fax request was sent to [facility] requesting images and reports. A message was also sent to Laurent Garza CNP in regards to the referral. Non-rheumatic aortic valve stenosis (possible TAVR candidate). Allergies As of Date: 09/17/2024 (Not on File) Date Reviewed: Never Reviewed Reason for Visit: Appointment [186] Cmt: Appointment Problem List As Of Date: 09/17/2024 (None) Encounter Status:Closed by PEARL DUTTA on 09/17/24 [facility] CNPN Telephone (ESBATechACC) -------- DARYN SHAH ([id number]) 1945 F Date Time Provider Department 09/17/24 LAURENT GARZA During your visit today, we recorded the following information about you: Pearl Dutta 09/17/2024 3:50 PM Signed Referral received and scanned to chart. Fax request was sent to [facility] requesting images and reports. A message was also sent to Laurent Garza CNP in regards to the referral. Non-rheumatic aortic valve stenosis (possible TAVR candidate). Gamaliel Tilley MA 11/06/2024 3:16 PM Signed Addended by: JOCELINE TILLEY on: 11/06/2024 03:16 PM Modules accepted: Orders Allergies As of Date: 09/17/2024 (Not on File) Date Reviewed: Never Reviewed Reason for Visit: Appointment [186] Cmt: Appointment Prescriptions as of 11/06/2024 - busPIRone (BUSPAR) 5 mg tablet Take 5 mg by mouth two times a day. - ELIQUIS 5 mg tab(s) Take 5 mg by mouth two times a day. - carvedilol (COREG) 3.125 mg tablet Take 3.125 mg by mouth two times a day with meals. - cyclobenzaprine (FLEXERIL) 5 mg tablet Take 5 mg by mouth three times a day as needed for muscle spasm. - escitalopram oxalate (LEXAPRO) 10 mg tablet Take 15 mg by mouth once daily. - insulin lispro (HUMALOG KWIKPEN) 100 unit/mL Inject 4 Units subcutaneously three times a day before meals. - lisinopril 2.5 mg tablet Take 2.5 mg by mouth once daily. - metoprolol succinate ER (TOPROL XL) 25 mg 24 hr tablet Take 25 mg by mouth once daily. - pantoprazole DR (PROTONIX) 40 mg tablet Take 40 mg by mouth once daily. - venlafaxine ER (EFFEXOR XR) 150 mg 24 hr capsule Take 150 mg by mouth once daily. Problem List As Of Date: 09/17/2024 (None) Encounter Status:Closed by PEARL DUTTA on 09/17/24 [facility] Anion gap in Serum or Plasma Ordered By: Delgado Amaro on 09-16-2024 Anion gap [Moles/Vol] 12 mmol/L 5-15 [facility] BUN/creatinine ratioOrdered By: Delgado Amaro on 09-16-2024 Urea nitrogen/Creatinine [Mass ratio] 23.1 mg/mg High 01-26 [facility] Basic Metabolic Profile (BMP )on 09-16-2024 BUN/CRE 23.1 RATIO High 01-26 [facility] Comment on above: Order Comment: 503.2 Performed By: #### L 100.0500, L500.2500 ####[facility] [address] [place], [address] Calcium [Mass/Vol] 9.1 mg/dL Normal 7.6-11.0 [facility] Comment on above: Order Comment: 503.2 Performed By: #### L 100.0500, L500.2500 ####[facility] [address] [place], [address] Chloride [Moles/Vol] 99 mmol/L Normal 98-108 [facility] Comment on above: Order Comment: 503.2 Performed By: #### L 100.0500, L500.2500 ####[facility] [address] [place], [address] CO2 [Moles/Vol] 27.1 mmol/L Normal 21.0-32.0 [facility] Comment on above: Order Comment: 503.2 Performed By: #### L 100.0500, L500.2500 ####[facility] [address] [place], [address] Creatinine [Mass/Vol] 1.19 mg/dL Normal 0.70-1.20 [facility] Comment on above: Order Comment: 503.2 Performed By: #### L 100.0500, L500.2500 ####[facility] [address] [place], [address] GAP 12 Normal - [facility] Comment on above: Order Comment: 503.2 Performed By: #### L 100.0500, L500.2500 ####[facility] [address] [place], [address] GFR/1.73 sq M.predicted among non-blacks MDRD (S/P/Bld) [Vol rate/Area] 47 mL/min/{1.73_m2} Low >60 [facility] Comment on above: Order Comment: 503.2 Result Comment: mL/m in/1.73m2 CKD-EPI Creatinine Equation (2020) Performed By: #### L 100.0500, L500.2500 ####[facility] [address] [place], [address] Glucose [Mass/Vol] 98 mg/dL Normal 70-99 [facility] Comment on above: Order Comment: 503.2 Performed By: #### L 100.0500, L500.2500 ####[facility] [address] [place], [address] Potassium [Moles/Vol] 4.3 mmol/L Normal 3.3-5.1 [facility] Comment on above: Order Comment: 503.2 Performed By: #### L 100.0500, L500.2500 ####[facility] [address] [place], [address] Sodium [Moles/Vol] 138 mmol/L Normal 133-145 [facility] Comment on above: Order Comment: 503.2 Performed By: #### L 100.0500, L500.2500 ####[facility] [address] [place], [address] Urea nitrogen [Mass/Vol] 28 mg/dL High 4-19 [facility] Comment on above: Order Comment: 503.2 Performed By: #### L 100.0500, L500.2500 ####[facility] [address] [place], [address] CBC-Complete Blood Cnt No Di ffon 09-16-2024 Erythrocyte distribution width (RBC) [Ratio] 15.1 % High 11.6-14.6 [facility] Comment on above: Order Comment: 503.2 Performed By: #### L 100.0500, L500.2500 ####[facility] [address] [place], [address] Hematocrit (Bld) [Volume fraction] 30.9 % Low 37-47 [facility] Comment on above: Order Comment: 503.2 Performed By: #### L 100.0500, L500.2500 ####[facility] [address] [place], [address] Hemoglobin (Bld) [Mass/Vol] 9.4 g/dL Low 12.0-15.0 [facility] Comment on above: Order Comment: 503.2 Performed By: #### L 100.0500, L500.2500 ####[facility] [address] [place], [address] MCH (RBC) [Entitic mass] 26.4 pg Low 27.0-32.0 [facility] Comment on above: Order Comment: 503.2 Performed By: #### L 100.0500, L500.2500 ####[facility] [address] [place], [address] MCHC (RBC) [Mass/Vol] 30.4 g/dL Low 32-36 [facility] Comment on above: Order Comment: 503.2 Performed By: #### L 100.0500, L500.2500 ####[facility] [address] [place], [address] MCV (RBC) [Entitic vol] 86.8 fL Normal 81-99 [facility] Comment on above: Order Comment: 503.2 Performed By: #### L 100.0500, L500.2500 ####[facility] [address] [place], [address] Platelet mean volume (Bld) [Entitic vol] 9.7 fL Normal 6.2-12.0 [facility] Comment on above: Order Comment: 503.2 Performed By: #### L 100.0500, L500.2500 ####[facility] [address] [place], [address] Platelets (Bld) [#/Vol] 203 10*3/uL Normal 150-450 [facility] Comment on above: Order Comment: 503.2 Performed By: #### L 100.0500, L500.2500 ####[facility] [address] [place], [address] RBC (Bld) [#/Vol] 3.56 10*6/uL Low 4.2-5.4 [facility] Comment on above: Order Comment: 503.2 Performed By: #### L 100.0500, L500.2500 ####[facility] [address] [place], [address] RDW SD 48.3 fl High 35.1-43.9 [facility] Comment on above: Order Comment: 503.2 Performed By: #### L 100.0500, L500.2500 ####[facility] [address] [place], [address] WBC (Bld) [#/Vol] 7.6 10*3/uL Normal 4.4-11.0 [facility] Comment on above: Order Comment: 503.2 Performed By: #### L 100.0500, L500.2500 ####[facility] [address] [place], [address] Carbon dioxide, total [Moles /volume] in Central venous bloodOrdered By: Delgado Amaro on 09-16-2024 CO2 [Moles/Vol] 27.1 mmol/L 21.0-32.0 [facility] Chloride assayOrdered By: Kade Amaro on 09-16-2024 Chloride [Moles/Vol] 99 mmol/L 98-108 [facility] Erythrocyte distribution wid th ratioOrdered By: Delgado Amaro on 09-16-2024 Erythrocyte distribution width (RBC) [Ratio] 15.1 % High 11.6-14.6 [facility] Erythrocyte distribution wid th standard deviationOrdered By: Delgado Amaro on 09-16-2024 Erythrocyte distribution width (RBC) [Ratio] 48.3 fl High 35.1-43.9 [facility] Glomerular filtration rate ( GFR) estimation/1.73 sq m using serum, plasma, or whole bOrdered By: Delgado Amaro on 09-16-2024 GFR/1.73 sq M.predicted among non-blacks MDRD (S/P/Bld) [Vol rate/Area] 47 mL/min/{1.73_m2} Low >60 [facility] Comment on above: mL/min/1.73m2 CKD-EP I Creatinine Equation (2020) Hematocrit Auto (Bld) [Volum e fraction]Ordered By: Delgado Amaro on 09-16-2024 Hematocrit (Bld) [Volume fraction] 30.9 % Low 37-47 [facility] Hemoglobin measurementOrdere d By: Delgado Amaro on 09-16-2024 Hemoglobin (Bld) [Mass/Vol] 9.4 g/dL Low 12.0-15.0 [facility] MCV (mean corpuscular volume ) determinationOrdered By: Delgado Amaro on 09-16-2024 MCV (RBC) [Entitic vol] 86.8 fL 81-99 [facility] Mean corpuscular hemoglobin (MCH) determinationOrdered By: Delgado Amaro on 09-16-2024 MCH (RBC) [Entitic mass] 26.4 pg Low 27.0-32.0 [facility] Mean corpuscular hemoglobin concentration (MCHC) determinationOrdered By: Delgado Amaro on 09-16-2024 MCHC (RBC) [Mass/Vol] 30.4 g/dL Low 32-36 [facility] Mean platelet volume determi nationOrdered By: Delgado Amaro on 09-16-2024 Platelet mean volume (Bld) [Entitic vol] 9.7 fL 6.2-12.0 [facility] Platelet countOrdered By: Kade Amaro on 09-16-2024 Platelets (Bld) [#/Vol] 203 10*3/uL 150-450 [facility] Potassium measurement (mass/ volume)Ordered By: Delgado Amaro on 09-16-2024 Potassium (Unsp spec) [Mass/Vol] 4.3 mmol/L 3.3-5.1 [facility] RBC Auto (Bld) [#/Vol]Ordere d By: Delgado Amaro on 09-16-2024 RBC (Bld) [#/Vol] 3.56 10*6/uL Low 4.2-5.4 [facility] Serum creatinine measurement (mass/volume)Ordered By: Delgado Amaro on 09-16-2024 Creatinine [Mass/Vol] 1.19 mg/dL 0.70-1.20 [facility] Serum glucose measurement (m ass/volume)Ordered By: Delgado Amaro on 09-16-2024 Glucose [Mass/Vol] 98 mg/dL 70-99 [facility] Serum or plasma calcium kay urement (mass/volume)Ordered By: Delgado Amaro on 09-16-2024 Calcium [Mass/Vol] 9.1 mg/dL 7.6-11.0 [facility] Serum or plasma urea nitroge n measurement (mass/volume)Ordered By: Delgado Amaro on 09-16-2024 Urea nitrogen [Mass/Vol] 28 mg/dL High 4- [facility] Sodium levelOrdered By: Dimitry Amaro on 09-16-2024 Sodium [Moles/Vol] 138 mmol/L 133-145 [facility] White blood cell (WBC) count Ordered By: Delgado Amaro on 09-16-2024 WBC (Bld) [#/Vol] 7.6 10*3/uL 4.4-11.0 [facility] Anion gap in Serum or Plasma Ordered By: Delgado Amaro on 08-19-2024 Anion gap [Moles/Vol] 10 mmol/L - [facility] BUN/creatinine ratioOrdered By: Delgado Amaro on 08-19-2024 Urea nitrogen/Creatinine [Mass ratio] 19.0 mg/mg - [facility] Basic Metabolic Profile (BMP )on 08-19-2024 BUN/CRE 19.0 RATIO Normal - [facility] Comment on above: Order Comment: 503.2 Performed By: #### L 500.2500, L100.0500 ####[facility] [address] [place], [address] Calcium [Mass/Vol] 9.7 mg/dL Normal 7.6-11.0 [facility] Comment on above: Order Comment: 503.2 Performed By: #### L 500.2500, L100.0500 ####[facility] [address] [place], [address] Chloride [Moles/Vol] 100 mmol/L Normal 98-108 [facility] Comment on above: Order Comment: 503.2 Performed By: #### L 500.2500, L100.0500 ####[facility] [address] [place], [address] CO2 [Moles/Vol] 27.5 mmol/L Normal 21.0-32.0 [facility] Comment on above: Order Comment: 503.2 Performed By: #### L 500.2500, L100.0500 ####[facility] [address] [place], [address] Creatinine [Mass/Vol] 1.15 mg/dL Normal 0.70-1.20 [facility] Comment on above: Order Comment: 503.2 Performed By: #### L 500.2500, L100.0500 ####[facility] [address] [place], [address] GAP 10 Normal 5-15 [facility] Comment on above: Order Comment: 503.2 Performed By: #### L 500.2500, L100.0500 ####[facility] [address] [place], [address] GFR/1.73 sq M.predicted among non-blacks MDRD (S/P/Bld) [Vol rate/Area] 49 mL/min/{1.73_m2} Low >60 [facility] Comment on above: Order Comment: 503.2 Result Comment: mL/m in/1.73m2 CKD-EPI Creatinine Equation (2020) Performed By: #### L 500.2500, L100.0500 ####[facility] [address] [place], [address] Glucose [Mass/Vol] 101 mg/dL High 70-99 [facility] Comment on above: Order Comment: 503.2 Performed By: #### L 500.2500, L100.0500 ####[facility] [address] [place], [address] Potassium [Moles/Vol] 4.4 mmol/L Normal 3.3-5.1 [facility] Comment on above: Order Comment: 503.2 Result Comment: Hemo lysis present, Results??could be affected.?? Performed By: #### L 500.2500, L100.0500 ####[facility] [address] [place], [address] Sodium [Moles/Vol] 138 mmol/L Normal 133-145 [facility] Comment on above: Order Comment: 503.2 Performed By: #### L 500.2500, L100.0500 ####[facility] [address] [place], [address] Urea nitrogen [Mass/Vol] 22 mg/dL High 4-19 [facility] Comment on above: Order Comment: 503.2 Performed By: #### L 500.2500, L100.0500 ####[facility] [address] [place], [address] CBC-Complete Blood Cnt No Di ffon 08-19-2024 Erythrocyte distribution width (RBC) [Ratio] 15.9 % High 11.6-14.6 [facility] Comment on above: Order Comment: 503.2 Performed By: #### L 500.2500, L100.0500 ####[facility] [address] [place], [address] Hematocrit (Bld) [Volume fraction] 35.6 % Low 37-47 [facility] Comment on above: Order Comment: 503.2 Performed By: #### L 500.2500, L100.0500 ####[facility] [address] [place], [address] Hemoglobin (Bld) [Mass/Vol] 11.6 g/dL Low 12.0-15.0 [facility] Comment on above: Order Comment: 503.2 Performed By: #### L 500.2500, L100.0500 ####[facility] [address] [place], [address] MCH (RBC) [Entitic mass] 28.4 pg Normal 27.0-32.0 [facility] Comment on above: Order Comment: 503.2 Performed By: #### L 500.2500, L100.0500 ####[facility] [address] [place], [address] MCHC (RBC) [Mass/Vol] 32.6 g/dL Normal 32-36 [facility] Comment on above: Order Comment: 503.2 Performed By: #### L 500.2500, L100.0500 ####[facility] [address] [place], [address] MCV (RBC) [Entitic vol] 87.0 fL Normal 81-99 [facility] Comment on above: Order Comment: 503.2 Performed By: #### L 500.2500, L100.0500 ####[facility] [address] [place], [address] Platelet mean volume (Bld) [Entitic vol] 9.5 fL Normal 6.2-12.0 [facility] Comment on above: Order Comment: 503.2 Performed By: #### L 500.2500, L100.0500 ####[facility] [address] [place], [address] Platelets (Bld) [#/Vol] 180 10*3/uL Normal 150-450 [facility] Comment on above: Order Comment: 503.2 Performed By: #### L 500.2500, L100.0500 ####[facility] [address] [place], [address] RBC (Bld) [#/Vol] 4.09 10*6/uL Low 4.2-5.4 [facility] Comment on above: Order Comment: 503.2 Performed By: #### L 500.2500, L100.0500 ####[facility] [address] [place], [address] RDW SD 50.2 fl High 35.1-43.9 [facility] Comment on above: Order Comment: 503.2 Performed By: #### L 500.2500, L100.0500 ####[facility] [address] [place], [address] WBC (Bld) [#/Vol] 6.4 10*3/uL Normal 4.4-11.0 [facility] Comment on above: Order Comment: 503.2 Performed By: #### L 500.2500, L100.0500 ####[facility] [address] [place], [address] Carbon dioxide, total [Moles /volume] in Central venous bloodOrdered By: Delgado Amaro on 08-19-2024 CO2 [Moles/Vol] 27.5 mmol/L 21.0-32.0 [facility] Chloride assayOrdered By: Kade Amaro on 08-19-2024 Chloride [Moles/Vol] 100 mmol/L 98-108 [facility] Erythrocyte distribution wid th ratioOrdered By: Delgado Amaro on 08-19-2024 Erythrocyte distribution width (RBC) [Ratio] 15.9 % High 11.6-14.6 [facility] Erythrocyte distribution wid th standard deviationOrdered By: Delgado Amaro on 08-19-2024 Erythrocyte distribution width (RBC) [Ratio] 50.2 fl High 35.1-43.9 [facility] Glomerular filtration rate ( GFR) estimation/1.73 sq m using serum, plasma, or whole bOrdered By: Delgado Amaro on 08-19-2024 GFR/1.73 sq M.predicted among non-blacks MDRD (S/P/Bld) [Vol rate/Area] 49 mL/min/{1.73_m2} Low >60 [facility] Comment on above: mL/min/1.73m2 CKD-EP I Creatinine Equation (2020) Hematocrit Auto (Bld) [Volum e fraction]Ordered By: Delgado Amaro on 08-19-2024 Hematocrit (Bld) [Volume fraction] 35.6 % Low 37-47 [facility] Hemoglobin measurementOrdere d By: Delgado Amaro on 08-19-2024 Hemoglobin (Bld) [Mass/Vol] 11.6 g/dL Low 12.0-15.0 [facility] MCV (mean corpuscular volume ) determinationOrdered By: Delgado Amaro on 08-19-2024 MCV (RBC) [Entitic vol] 87.0 fL 81-99 [facility] Mean corpuscular hemoglobin (MCH) determinationOrdered By: Delgado Amaro on 08-19-2024 MCH (RBC) [Entitic mass] 28.4 pg 27.0-32.0 [facility] Mean corpuscular hemoglobin concentration (MCHC) determinationOrdered By: Delgado Amaro on 08-19-2024 MCHC (RBC) [Mass/Vol] 32.6 g/dL 32-36 [facility] Mean platelet volume determi nationOrdered By: Delgdao Amaro on 08-19-2024 Platelet mean volume (Bld) [Entitic vol] 9.5 fL 6.2-12.0 [facility] Platelet countOrdered By: Kade Amaro on 08-19-2024 Platelets (Bld) [#/Vol] 180 10*3/uL 150-450 [facility] Potassium measurement (mass/ volume)Ordered By: Delgado Amaro on 08-19-2024 Potassium (Unsp spec) [Mass/Vol] 4.4 mmol/L 3.3-5.1 [facility] Comment on above: Hemolysis present, R esults could be affected. RBC Auto (Bld) [#/Vol]Ordere d By: Delgado Amaro on 08-19-2024 RBC (Bld) [#/Vol] 4.09 10*6/uL Low 4.2-5.4 [facility] Serum creatinine measurement (mass/volume)Ordered By: Delgado Amaro on 08-19-2024 Creatinine [Mass/Vol] 1.15 mg/dL 0.70-1.20 [facility] Serum glucose measurement (m ass/volume)Ordered By: Delgado Amaro on 08-19-2024 Glucose [Mass/Vol] 101 mg/dL High 70-99 [facility] Serum or plasma calcium kay urement (mass/volume)Ordered By: Delgado Amaro on 08-19-2024 Calcium [Mass/Vol] 9.7 mg/dL 7.6-11.0 [facility] Serum or plasma urea nitroge n measurement (mass/volume)Ordered By: Delgado Amaro on 08-19-2024 Urea nitrogen [Mass/Vol] 22 mg/dL High 4-19 [facility] Sodium levelOrdered By: Dimitry Amaro on 08-19-2024 Sodium [Moles/Vol] 138 mmol/L 133-145 [facility] White blood cell (WBC) count Ordered By: Delgado Amaro on 08-19-2024 WBC (Bld) [#/Vol] 6.4 10*3/uL 4.4-11.0 [facility] Cardiovascular stress test r eportOrdered By: Henri Pedraza on 08-13-2024 Study report [facility] [address] [place] [id number] MR#: [id number] Acct: [id number] Name: DARYN SHAH Rep #: [id number] 5 : 1945 78 From: Henri Pedraza [...] of 34%. This note was generated with [employer] software. It may contain incorrectwords, spelling, and punctuation that were not noted in checking the note beforesigning. 08/13/24 104 Date _ Henri Pedraza MD CC: Dr. Henri Pedraza MD; April Mullen MD ~ Date Dictated: 08/13/24 104 Date Transcribed: 08/13/241040 Director Of Vendor Management: ROGER Sterling [facility] Work Phone: Echo Completeon 08-13-2024 Echo Complete Normal [facility] Echocardiogram study reportO rdered By: Henri Pedraza on 08-13-2024 Study report [facility] [place] [address] Echo Complete 08/13/24 1000 MR#: [id number] Acct: [id number] Name: DARYN SHAH Rep #:[id number] 2 : 1945 78 From: Henri Pedraza MD Attending Dr: Dr. Henri Pedraza MD Status: REG CLI Ordering Dr: Henri Pedraza MD Date: Location: [facility] Sex: F C Admitted: Reason For Study [...] Date Dictated: 08/13/24 1000 Date Transcribed: 08/13/24 115 Director Of Vendor Management: Signed [facility] Work Phone: Stress Reporton 08-13-2024 Stress Report Normal [facility] Gastroenterology Visit Repor ton 07-31-2024 Gastroenterology Visit Report Normal [facility] 12 Lead EKG performed by [facility] on 07-23-2024 12 Lead EKG performed by [facility] Normal [facility] Cardiology Visit Reporton Cardiology Visit Report Normal [facility] Anion gap in Serum or Plasma Ordered By: Delgado Amaro on 07-22-2024 Anion gap [Moles/Vol] 10 mmol/L 08-21 [facility] Automated blood erythrocyte countOrdered By: Delgado Amaro on 07-22-2024 RBC (Bld) [#/Vol] 4.28 10*6/uL Normal 4.2-5.4 [facility] Comment on above: Order Comment: 503.2 Performed By: #### L 500.2500, L100.0500 ####[facility] [address] [place], [address] Automated blood hematocrit ( percentage)Ordered By: Delgado Amaro on 07-22-2024 Hematocrit (Bld) [Volume fraction] 35.6 % Low 37-47 [facility] Comment on above: Order Comment: 503.2 Performed By: #### L 500.2500, L100.0500 ####[facility] [address] [place], [address] BUN/creatinine ratioOrdered By: Delgado Amaro on 07-22-2024 Urea nitrogen/Creatinine [Mass ratio] 16.8 mg/mg 10-20 [facility] Basic Metabolic Profile (BMP )on 07-22-2024 BUN/CRE 16.8 RATIO Normal 10-20 [facility] Comment on above: Order Comment: 503.2 Performed By: #### L 500.2500, L100.0500 ####[facility] [address] [place], [address] GAP 10 Normal 5-15 [facility] Comment on above: Order Comment: 503.2 Performed By: #### L 500.2500, L100.0500 ####[facility] [address] [place], [address] Potassium [Moles/Vol] 3.9 mmol/L Normal 3.3-5.1 [facility] Comment on above: Order Comment: 503.2 Performed By: #### L 500.2500, L100.0500 ####[facility] [address] [place], [address] CBC-Complete Blood Cnt No Di ffon 07-22-2024 RDW SD 55.6 fl High 35.1-43.9 [facility] Comment on above: Order Comment: 503.2 Performed By: #### L 500.2500, L100.0500 ####[facility] [address] [place], [address] Carbon dioxide, total [Moles /volume] in Central venous bloodOrdered By: Delgado Amaro on 07-22-2024 CO2 [Moles/Vol] 28.7 mmol/L Normal 21.0-32.0 [facility] Comment on above: Order Comment: 503.2 Performed By: #### L 500.2500, L100.0500 ####[facility] [address] [place], [address] Chloride assayOrdered By: Kade Amaro on 07-22-2024 Chloride [Moles/Vol] 102 mmol/L Normal 98-108 [facility] Comment on above: Order Comment: 503.2 Performed By: #### L 500.2500, L100.0500 ####[facility] [address] [place], [address] Erythrocyte distribution wid th ratioOrdered By: Delgado Amaro on 07-22-2024 Erythrocyte distribution width (RBC) [Ratio] 18.2 % High 11.6-14.6 [facility] Comment on above: Order Comment: 503.2 Performed By: #### L 500.2500, L100.0500 ####[facility] [address] [place], [address] Erythrocyte distribution wid th standard deviationOrdered By: Delgado Amaro on 07-22-2024 Erythrocyte distribution width (RBC) [Ratio] 55.6 fl High 35.1-43.9 [facility] Glomerular filtration rate ( GFR) estimation/1.73 sq m using serum, plasma, or whole bOrdered By: Delgado Amaro on 07-22-2024 GFR/1.73 sq M.predicted among non-blacks MDRD (S/P/Bld) [Vol rate/Area] 47 mL/min/{1.73_m2} Low >60 [facility] Comment on above: mL/min/1.73m2 CKD-EP I Creatinine Equation (2020) Order Comment: 503.2 Result Comment: mL/m in/1.73m2 CKD-EPI Creatinine Equation (2020) Performed By: #### L 500.2500, L100.0500 ####[facility] [address] [place], [address] Hemoglobin measurementOrdere d By: Delgado Amaro on 07-22-2024 Hemoglobin (Bld) [Mass/Vol] 11.4 g/dL Low 12.0-15.0 [facility] Comment on above: Order Comment: 503.2 Performed By: #### L 500.2500, L100.0500 ####[facility] [address] [place], [address] MCV (mean corpuscular volume ) determinationOrdered By: Delgado Amaro on 07-22-2024 MCV (RBC) [Entitic vol] 83.2 fL Normal 81-99 [facility] Comment on above: Order Comment: 503.2 Performed By: #### L 500.2500, L100.0500 ####[facility] [address] [place], [address] Mean corpuscular hemoglobin (MCH) determinationOrdered By: Delgado Amaro on 07-22-2024 MCH (RBC) [Entitic mass] 26.6 pg Low 27.0-32.0 [facility] Comment on above: Order Comment: 503.2 Performed By: #### L 500.2500, L100.0500 ####[facility] [address] [place], [address] Mean corpuscular hemoglobin concentration (MCHC) determinationOrdered By: Delgado Amaro on 07-22-2024 MCHC (RBC) [Mass/Vol] 32.0 g/dL Normal 32-36 [facility] Comment on above: Order Comment: 503.2 Performed By: #### L 500.2500, L100.0500 ####[facility] [address] [place], [address] Mean platelet volume determi nationOrdered By: Delgado Amaro on 07-22-2024 Platelet mean volume (Bld) [Entitic vol] 9.2 fL Normal 6.2-12.0 [facility] Comment on above: Order Comment: 503.2 Performed By: #### L 500.2500, L100.0500 ####[facility] [address] [place], [address] Platelet countOrdered By: Kade Amaro on 07-22-2024 Platelets (Bld) [#/Vol] 159 10*3/uL Normal 150-450 [facility] Comment on above: Order Comment: 503.2 Performed By: #### L 500.2500, L100.0500 ####[facility] [address] [place], [address] Potassium measurement (mass/ volume)Ordered By: Delgado Amaro on 07-22-2024 Potassium (Unsp spec) [Mass/Vol] 3.9 mmol/L 3.3-5.1 [facility] Serum creatinine measurement (mass/volume)Ordered By: Delgado Amaro on 07-22-2024 Creatinine [Mass/Vol] 1.19 mg/dL Normal 0.70-1.20 [facility] Comment on above: Order Comment: 503.2 Performed By: #### L 500.2500, L100.0500 ####[facility] [address] [place], [address] Serum glucose measurement (m ass/volume)Ordered By: Delgado Amaro on 07-22-2024 Glucose [Mass/Vol] 82 mg/dL Normal 70-99 [facility] Comment on above: Order Comment: 503.2 Performed By: #### L 500.2500, L100.0500 ####[facility] [address] [place], [address] Serum or plasma calcium kay urement (mass/volume)Ordered By: Delgado Amaro on 07-22-2024 Calcium [Mass/Vol] 9.2 mg/dL Normal 7.6-11.0 [facility] Comment on above: Order Comment: 503.2 Performed By: #### L 500.2500, L100.0500 ####[facility] [address] [place], [address] Serum or plasma urea nitroge n measurement (mass/volume)Ordered By: Delgado Amaro on 07-22-2024 Urea nitrogen [Mass/Vol] 20 mg/dL High 4-19 [facility] Comment on above: Order Comment: 503.2 Performed By: #### L 500.2500, L100.0500 ####[facility] [address] [place], [address] Sodium levelOrdered By: Dimitry Amaro on 07-22-2024 Sodium [Moles/Vol] 141 mmol/L Normal 133-145 [facility] Comment on above: Order Comment: 503.2 Performed By: #### L 500.2500, L100.0500 ####[facility] [address] [place], [address] White blood cell (WBC) count Ordered By: Delgado Amaro on 07-22-2024 WBC (Bld) [#/Vol] 6.9 10*3/uL Normal 4.4-11.0 [facility] Comment on above: Order Comment: 503.2 Performed By: #### L 500.2500, L100.0500 ####[facility] [address] [place], [address] Bedside Glucoseon 07-01-2024 FINGERSTICK GLU 62 mg/dL Low 74-106 [facility] Comment on above: Result Comment: ASHU KELLY OF PATIENT CARE PER NURSING PROTOCOL Performed By: #### L 501.080 ####[facility] [address] [place], [address] Colonoscopy Reporton 025 Colonoscopy Report Normal [facility] EGD Reporton 07-01-2024 EGD Report Normal [facility] Glucose measurement at [facility] deOrdered By: Jacinto Munoz on 07-01-2024 Bedside Glucose (Misc Panel) 62 mg/dL Low 74-106 [facility] Comment on above: MANAGEMENT OF PATIEN T CARE PER NURSING PROTOCOL Glucose [Mass/Vol] 62 mg/dL Low 74-106 [facility] Comment on above: MANAGEMENT OF PATIEN T CARE PER NURSING PROTOCOL MR/POSTOP.ANEon 07-01-2024 MR/POSTOP.ANE Normal [facility] MR/KTVLTLAS2xb 07-01-2024 MR/POSTOPAN2 Normal [facility] Surgery Specimen Level Lon 07-01-2024 Surgery Specimen Level IV Normal [facility] Comment on above: Performed By: #### P SUIV ####[facility] [address] [place], [address] MR/PAT.ANEon 06-30-2024 MR/PAT.ANE Normal [facility] Anion gap in Serum or Plasma Ordered By: Delgado Amaro on 06-24-2024 Anion gap [Moles/Vol] 11 mmol/L 08-21 [facility] Automated blood erythrocyte countOrdered By: Delgado Amaro on 06-24-2024 RBC (Bld) [#/Vol] 4.14 10*6/uL Low 4.2-5.4 [facility] Comment on above: Order Comment: 503.2 Performed By: #### L 100.0500, L500.2500, L100.4500 ####[facility] [address] [place], [address] Automated blood hematocrit ( percentage)Ordered By: Delgado Amaro on 06-24-2024 Hematocrit (Bld) [Volume fraction] 32.9 % Low 37-47 [facility] Comment on above: Order Comment: 503.2 Performed By: #### L 100.0500, L500.2500, L100.4500 ####[facility] [address] [place], [address] BUN/creatinine ratioOrdered By: Delgado Amaro on 06-24-2024 Urea nitrogen/Creatinine [Mass ratio] 18.1 mg/mg 01-26 [facility] Basic Metabolic Profile (BMP )on 06-24-2024 BUN/CRE 18.1 RATIO Normal 01-26 [facility] Comment on above: Order Comment: 503.2 Performed By: #### L 100.0500, L500.2500, L100.4500 ####[facility] [address] [place], [address] GAP 11 Normal 08-21 [facility] Comment on above: Order Comment: 503.2 Performed By: #### L 100.0500, L500.2500, L100.4500 ####[facility] [address] [place], [address] Blood manual differential co mment interpretation (narrative result)Ordered By: Delgado Amaro on 06-24-2024 Manual differential comment Jd (Bld) [Interp] COMMENT [facility] Comment on above: 1+ ANISO. CBC-Complete Blood Cnt No Di ffon 06-24-2024 RDW SD 57.4 fl High 35.1-43.9 [facility] Comment on above: Order Comment: 503.2 Performed By: #### L 100.0500, L500.2500, L100.4500 ####[facility] [address] [place], [address] Carbon dioxide, total [Moles /volume] in Central venous bloodOrdered By: Delgado Amaro on 06-24-2024 CO2 [Moles/Vol] 26.3 mmol/L Normal 21.0-32.0 [facility] Comment on above: Order Comment: 503.2 Performed By: #### L 100.0500, L500.2500, L100.4500 ####[facility] [address] [place], [address] Chloride assayOrdered By: Kade Amaro on 06-24-2024 Chloride [Moles/Vol] 103 mmol/L Normal 98-108 [facility] Comment on above: Order Comment: 503.2 Performed By: #### L 100.0500, L500.2500, L100.4500 ####[facility] [address] [place], [address] Differential Commenton 06-24 SMEAR COMMENT COMMENT Normal [facility] Comment on above: Order Comment: 503.2 Result Comment: 1+ A NISO. Performed By: #### L 100.0500, L500.2500, L100.4500 ####[facility] [address] [place], [address] Erythrocyte distribution wid th ratioOrdered By: Delgado Amaro on 06-24-2024 Erythrocyte distribution width (RBC) [Ratio] 20.1 % High 11.6-14.6 [facility] Comment on above: Order Comment: 503.2 Performed By: #### L 100.0500, L500.2500, L100.4500 ####[facility] [address] [place], [place], [address] Erythrocyte distribution wid th standard deviationOrdered By: Delgado Amaro on 06-24-2024 Erythrocyte distribution width (RBC) [Entitic vol] 57.4 fL High 35.1-43.9 [facility] Erythrocyte distribution width (RBC) [Ratio] 57.4 fl High 35.1-43.9 [facility] GFR/1.73 sq M.predicted tanner g non-blacks MDRD (S/P/Bld) [Vol rate/Area]Ordered By: Delgado Amaro on 06-24-2024 Estimated GFR (MDRD) Non-Af Amer 49 Low >60 [facility] Comment on above: mL/min/1.73m2 CKD-EP I Creatinine Equation (2020) Glomerular filtration rate ( GFR) estimation/1.73 sq m using serum, plasma, or whole bOrdered By: Delgado Amaro on 06-24-2024 GFR/1.73 sq M.predicted among non-blacks MDRD (S/P/Bld) [Vol rate/Area] 49 mL/min/{1.73_m2} Low >60 [facility] Comment on above: mL/min/1.73m2 CKD-EP I Creatinine Equation (2020) Order Comment: 503.2 Result Comment: mL/m in/1.73m2 CKD-EPI Creatinine Equation (2020) Performed By: #### L 100.0500, L500.2500, L100.4500 ####[facility] [address] [place], [place], [address] Hemoglobin measurementOrdere d By: Delgado Amaro on 06-24-2024 Hemoglobin (Bld) [Mass/Vol] 10.3 g/dL Low 12.0-15.0 [facility] Comment on above: Order Comment: 503.2 Performed By: #### L 100.0500, L500.2500, L100.4500 ####[facility] [address] [place], [address] MCV (mean corpuscular volume ) determinationOrdered By: Delgado Amaro on 06-24-2024 MCV (RBC) [Entitic vol] 79.5 fL Low 81-99 [facility] Comment on above: Order Comment: 503.2 Performed By: #### L 100.0500, L500.2500, L100.4500 ####[facility] [address] [place], [address] Manual differential comment Jd (Bld) [Interp]Ordered By: Delgado Amaro on 06-24-2024 Differential Comment COMMENT [facility] Comment on above: 1+ ANISO. Mean corpuscular hemoglobin (MCH) determinationOrdered By: Delgado Amaro on 06-24-2024 MCH (RBC) [Entitic mass] 24.9 pg Low 27.0-32.0 [facility] Comment on above: Order Comment: 503.2 Performed By: #### L 100.0500, L500.2500, L100.4500 ####[facility] [address] [place], [address] Mean corpuscular hemoglobin concentration (MCHC) determinationOrdered By: Delgado Amaro on 06-24-2024 MCHC (RBC) [Mass/Vol] 31.3 g/dL Low 32-36 [facility] Comment on above: Order Comment: 503.2 Performed By: #### L 100.0500, L500.2500, L100.4500 ####[facility] [address] [place], [address] Mean platelet volume determi nationOrdered By: Delgado Amaro on 06-24-2024 Platelet mean volume (Bld) [Entitic vol] 9.4 fL Normal 6.2-12.0 [facility] Comment on above: Order Comment: 503.2 Performed By: #### L 100.0500, L500.2500, L100.4500 ####[facility] [address] [place], [address] Platelet countOrdered By: Kade Amaro on 06-24-2024 Platelets (Bld) [#/Vol] 137 10*3/uL Low 150-450 [facility] Comment on above: Order Comment: 503.2 Performed By: #### L 100.0500, L500.2500, L100.4500 ####[facility] [address] [place], [address] Potassium measurement (mass/ volume)Ordered By: Delgado Amaro on 06-24-2024 Potassium [Moles/Vol] 3.8 mmol/L Normal 3.3-5.1 [facility] Comment on above: Order Comment: 503.2 Performed By: #### L 100.0500, L500.2500, L100.4500 ####[facility] [address] [place], [address] Potassium (Unsp spec) [Mass/Vol] 3.8 mmol/L 3.3-5.1 [facility] Serum creatinine measurement (mass/volume)Ordered By: Delgado Amaro on 06-24-2024 Creatinine [Mass/Vol] 1.16 mg/dL Normal 0.70-1.20 [facility] Comment on above: Order Comment: 503.2 Performed By: #### L 100.0500, L500.2500, L100.4500 ####[facility] [address] [place], [address] Serum glucose measurement (m ass/volume)Ordered By: Delgado Amaro on 06-24-2024 Glucose [Mass/Vol] 102 mg/dL High 70-99 [facility] Comment on above: Order Comment: 503.2 Performed By: #### L 100.0500, L500.2500, L100.4500 ####[facility] [address] [place], [address] Serum or plasma calcium kay urement (mass/volume)Ordered By: Delgado Amaro on 06-24-2024 Calcium [Mass/Vol] 8.9 mg/dL Normal 7.6-11.0 [facility] Comment on above: Order Comment: 503.2 Performed By: #### L 100.0500, L500.2500, L100.4500 ####[facility] [address] [place], [address] Serum or plasma urea nitroge n measurement (mass/volume)Ordered By: Delgado Amaro on 06-24-2024 Urea nitrogen [Mass/Vol] 21 mg/dL High 4-19 [facility] Comment on above: Order Comment: 503.2 Performed By: #### L 100.0500, L500.2500, L100.4500 ####[facility] [address] [place], [address] Sodium levelOrdered By: Dimitry Amaro on 06-24-2024 Sodium [Moles/Vol] 140 mmol/L Normal 133-145 [facility] Comment on above: Order Comment: 503.2 Performed By: #### L 100.0500, L500.2500, L100.4500 ####[facility] [address] [place], [address] White blood cell (WBC) count Ordered By: Delgado Amaro on 06-24-2024 WBC (Bld) [#/Vol] 6.3 10*3/uL Normal 4.4-11.0 [facility] Comment on above: Order Comment: 503.2 Performed By: #### L 100.0500, L500.2500, L100.4500 ####[facility] [address] [place], [address] BUN/creatinine ratioOrdered By: April Mullen on 06-04-2024 Urea nitrogen/Creatinine [Mass ratio] 24.1 mg/mg High 10-20 [facility] Basic Metabolic Profile (BMP )on 06-04-2024 Anion gap [Moles/Vol] 12 mmol/L Normal 5-15 [facility] Comment on above: Order Comment: 503-2 Performed By: #### L 500.2500 ####[facility] [address] [place], [address] BUN/CRE 24.1 RATIO High 10-20 [facility] Comment on above: Order Comment: 503-2 Performed By: #### L 500.2500 ####[facility] [address] [place], [address] Calcium [Mass/Vol] 9.1 mg/dL Normal 7.6-11.0 [facility] Comment on above: Order Comment: 503-2 Performed By: #### L 500.2500 ####[facility] [address] [place], [address] Chloride [Moles/Vol] 101 mmol/L Normal 96-108 [facility] Comment on above: Order Comment: 503-2 Performed By: #### L 500.2500 ####[facility] [address] [place], [address] CO2 [Moles/Vol] 27.3 mmol/L Normal 22.0-29.0 [facility] Comment on above: Order Comment: 503-2 Performed By: #### L 500.2500 ####[facility] [address] [place], [address] Creatinine [Mass/Vol] 1.2 mg/dL High 0.6-1.0 [facility] Comment on above: Order Comment: 503-2 Performed By: #### L 500.2500 ####[facility] [address] [place], [address] GFR/1.73 sq M.predicted among non-blacks MDRD (S/P/Bld) [Vol rate/Area] 49 mL/min/{1.73_m2} Low >60 [facility] Comment on above: Order Comment: 503-2 Result Comment: mL/m in/1.73m2 CKD-EPI Creatinine Equation (2020) Performed By: #### L 500.2500 ####[facility] [address] [place], [address] Glucose [Mass/Vol] 122 mg/dL High 70-99 [facility] Comment on above: Order Comment: 503-2 Performed By: #### L 500.2500 ####[facility] [address] [place], [address] Potassium [Moles/Vol] 4.1 mmol/L Normal 3.3-5.1 [facility] Comment on above: Order Comment: 503-2 Performed By: #### L 500.2500 ####[facility] [address] [place], [address] Sodium [Moles/Vol] 140 mmol/L Normal 133-145 [facility] Comment on above: Order Comment: 503-2 Performed By: #### L 500.2500 ####[facility] [address] [place], [address] Urea nitrogen [Mass/Vol] 28 mg/dL High 4-19 [facility] Comment on above: Order Comment: 503-2 Performed By: #### L 500.2500 ####[facility] [address] [place], [address] Carbon dioxide measurementOr dered By: April Mullen on 06-04-2024 CO2 [Moles/Vol] 27.3 mmol/L 22.0-29.0 [facility] Chloride measurementOrdered By: April Mullen on 06-04-2024 Chloride [Moles/Vol] 101 mmol/L 96-108 [facility] Creatinine [Moles/Vol]Ordere d By: April Mullen on 06-04-2024 Creatinine [Mass/Vol] 1.2 mg/dL High 0.6-1.0 [facility] GFR/1.73 sq M.predicted tanner g non-blacks MDRD (S/P/Bld) [Vol rate/Area]Ordered By: April Mullen on 06-04-2024 Estimated GFR (MDRD) Non-Af Amer 49 Low >60 [facility] Comment on above: mL/min/1.73m2 CKD-EP I Creatinine Equation (2020) Glomerular filtration rate ( GFR) estimation/1.73 sq m using serum, plasma, or whole bOrdered By: April Mullen on 06-04-2024 GFR/1.73 sq M.predicted among non-blacks MDRD (S/P/Bld) [Vol rate/Area] 49 mL/min/{1.73_m2} Low >60 [facility] Comment on above: mL/min/1.73m2 CKD-EP I Creatinine Equation (2020) Serum glucose measurement (m ass/volume)Ordered By: April Mullen on 06-04-2024 Glucose [Mass/Vol] 122 mg/dL High 70-99 [facility] Serum or plasma anion gap de termination (moles/volume)Ordered By: April Mullen on 06-04-2024 Anion gap [Moles/Vol] 12 mmol/L 5-15 [facility] Serum or plasma calcium kay urement (mass/volume)Ordered By: April Mullen on 06-04-2024 Calcium [Mass/Vol] 9.1 mg/dL 7.6-11.0 [facility] Serum or plasma creatinine m easurement (moles/volume)Ordered By: April Mullen on 06-04-2024 Creatinine [Moles/Vol] 1.2 mg/dL High 0.6-1.0 [facility] Serum or plasma potassium me asurementOrdered By: April Mullen on 06-04-2024 Potassium [Moles/Vol] 4.1 mmol/L 3.3-5.1 [facility] Serum or plasma sodium measu rement (moles/volume)Ordered By: April Mullen on 06-04-2024 Sodium [Moles/Vol] 140 mmol/L 133-145 [facility] Serum or plasma urea nitroge n measurement (mass/volume)Ordered By: April Mullen on 06-04-2024 Urea nitrogen [Mass/Vol] 28 mg/dL High 4-19 [facility] BUN/creatinine ratioOrdered By: Delgado Amaro on 06-03-2024 Urea nitrogen/Creatinine [Mass ratio] 25.0 mg/mg High 10-20 [facility] Basic Metabolic Profile (BMP )on 06-03-2024 BUN/CRE 25.0 RATIO High 10-20 [facility] Comment on above: Performed By: #### L 500.2500 ####[facility] [address] [place], [address] Chloride [Moles/Vol] 101 mmol/L Normal 96-108 [facility] Comment on above: Performed By: #### L 500.2500 ####[facility] [address] [place], [address] CO2 [Moles/Vol] 28.1 mmol/L Normal 22.0-29.0 [facility] Comment on above: Performed By: #### L 500.2500 ####[facility] [address] [place], [address] BUN Normal 7-18 [facility] Comment on above: Order Comment: 503.2 Result Comment: PUTT ING UNDER DIFFERENT REQ Performed By: #### L 100.0500, L500.2500 ####[facility] [address] [place], [address] BUN/CRE Normal 10-20 [facility] Comment on above: Order Comment: 503.2 Result Comment: PUTT ING UNDER DIFFERENT REQ Performed By: #### L 100.0500, L500.2500 ####[facility] [address] [place], [address] Calcium Normal 8.5-10.1 [facility] Comment on above: Order Comment: 503.2 Result Comment: PUTT ING UNDER DIFFERENT REQ Performed By: #### L 100.0500, L500.2500 ####[facility] [address] [place], [address] CL Normal 98-107 [facility] Comment on above: Order Comment: 503.2 Result Comment: PUTT ING UNDER DIFFERENT REQ Performed By: #### L 100.0500, L500.2500 ####[facility] [address] [place], [address] CO2 Normal 21.0-32.0 [facility] Comment on above: Order Comment: 503.2 Result Comment: PUTT ING UNDER DIFFERENT REQ Performed By: #### L 100.0500, L500.2500 ####[facility] [address] [place], [address] CREAT,SERUM Normal 0.55-1.02 [facility] Comment on above: Order Comment: 503.2 Result Comment: PUTT ING UNDER DIFFERENT REQ Performed By: #### L 100.0500, L500.2500 ####[facility] [address] [place], [address] eGFR Normal >60 [facility] Comment on above: Order Comment: 503.2 Result Comment: PUTT ING UNDER DIFFERENT REQ Performed By: #### L 100.0500, L500.2500 ####[facility] [address] [place], [address] EST GFR - AA Normal >60 [facility] Comment on above: Order Comment: 503.2 Result Comment: PUTT ING UNDER DIFFERENT REQ Performed By: #### L 100.0500, L500.2500 ####[facility] [address] [place], [address] GAP Normal 5-15 [facility] Comment on above: Order Comment: 503.2 Result Comment: PUTT ING UNDER DIFFERENT REQ Performed By: #### L 100.0500, L500.2500 ####[facility] [address] [place], [address] GLU Normal 74-106 [facility] Comment on above: Order Comment: 503.2 Result Comment: PUTT ING UNDER DIFFERENT REQ Performed By: #### L 100.0500, L500.2500 ####[facility] [address] [place], [address] Potassium Normal 3.5-5.1 [facility] Comment on above: Order Comment: 503.2 Result Comment: PUTT ING UNDER DIFFERENT REQ Performed By: #### L 100.0500, L500.2500 ####[facility] [address] [place], [address] Basic Metabolic Profile (BMP) Normal 136-145 [facility] Comment on above: Order Comment: 503.2 Result Comment: PUTT ING UNDER DIFFERENT REQ Performed By: #### L 100.0500, L500.2500 ####[facility] [address] [place], [address] CBC-Complete Blood Cnt No Di ffon 06-03-2024 Erythrocyte distribution width (RBC) [Ratio] 20.0 % High 11.6-14.6 [facility] Comment on above: Order Comment: 503.2 Performed By: #### L 100.0500, L500.2500 ####[facility] [address] [place], [address] Hematocrit (Bld) [Volume fraction] 33.1 % Low 37-47 [facility] Comment on above: Order Comment: 503.2 Performed By: #### L 100.0500, L500.2500 ####[facility] [address] [place], [address] Hemoglobin (Bld) [Mass/Vol] 10.0 g/dL Low 12.0-15.0 [facility] Comment on above: Order Comment: 503.2 Performed By: #### L 100.0500, L500.2500 ####[facility] [address] [place], [address] MCH (RBC) [Entitic mass] 24.4 pg Low 27.0-32.0 [facility] Comment on above: Order Comment: 503.2 Performed By: #### L 100.0500, L500.2500 ####[facility] [address] [place], [address] MCHC (RBC) [Mass/Vol] 30.2 g/dL Low 32-36 [facility] Comment on above: Order Comment: 503.2 Performed By: #### L 100.0500, L500.2500 ####[facility] [address] [place], [address] MCV (RBC) [Entitic vol] 80.9 fL Low 81-99 [facility] Comment on above: Order Comment: 503.2 Performed By: #### L 100.0500, L500.2500 ####[facility] [address] [place], [address] Platelet mean volume (Bld) [Entitic vol] 9.7 fL Normal 6.2-12.0 [facility] Comment on above: Order Comment: 503.2 Performed By: #### L 100.0500, L500.2500 ####[facility] [address] [place], [address] Platelets (Bld) [#/Vol] 156 10*3/uL Normal 150-450 [facility] Comment on above: Order Comment: 503.2 Performed By: #### L 100.0500, L500.2500 ####[facility] [address] [place], [address] RBC (Bld) [#/Vol] 4.09 10*6/uL Low 4.2-5.4 [facility] Comment on above: Order Comment: 503.2 Performed By: #### L 100.0500, L500.2500 ####[facility] [address] [place], [address] RDW SD 58.8 fl High 35.1-43.9 [facility] Comment on above: Order Comment: 503.2 Performed By: #### L 100.0500, L500.2500 ####[facility] [address] [place], [address] WBC (Bld) [#/Vol] 6.0 10*3/uL Normal 4.4-11.0 [facility] Comment on above: Order Comment: 503.2 Performed By: #### L 100.0500, L500.2500 ####[facility] [address] [place], [address] Erythrocyte distribution wid th ratioOrdered By: Delgado Amaro on 06-03-2024 Erythrocyte distribution width (RBC) [Ratio] 20.0 % High 11.6-14.6 [facility] Erythrocyte distribution wid th standard deviationOrdered By: Delgado Amaro on 06-03-2024 Erythrocyte distribution width (RBC) [Entitic vol] 58.8 fL High 35.1-43.9 [facility] Erythrocyte distribution width (RBC) [Ratio] 58.8 fl High 35.1-43.9 [facility] GFR/1.73 sq M.predicted tanner g non-blacks MDRD (S/P/Bld) [Vol rate/Area]Ordered By: Delgado Amaro on 06-03-2024 Estimated GFR (MDRD) Non-Af Amer 47 Low >60 [facility] Comment on above: mL/min/1.73m2 CKD-EP I Creatinine Equation (2020) Glomerular filtration rate ( GFR) estimation/1.73 sq m using serum, plasma, or whole bOrdered By: Delgado Amaro on 06-03-2024 GFR/1.73 sq M.predicted among non-blacks MDRD (S/P/Bld) [Vol rate/Area] 47 mL/min/{1.73_m2} Low >60 [facility] Comment on above: mL/min/1.73m2 CKD-EP I Creatinine Equation (2020) Result Comment: mL/m in/1.73m2 CKD-EPI Creatinine Equation (2020) Performed By: #### L 500.2500 ####[facility] [address] [place], [address] Hematocrit Auto (Bld) [Volum e fraction]Ordered By: Delgado Amaro on 06-03-2024 Hematocrit (Bld) [Volume fraction] 33.1 % Low 37-47 [facility] Hemoglobin measurementOrdere d By: Delgado Amaro on 06-03-2024 Hemoglobin (Bld) [Mass/Vol] 10.0 g/dL Low 12.0-15.0 [facility] MCV (mean corpuscular volume ) determinationOrdered By: Delgado Amaro on 06-03-2024 MCV (RBC) [Entitic vol] 80.9 fL Low 81-99 [facility] Mean corpuscular hemoglobin (MCH) determinationOrdered By: Delgado Amaro on 06-03-2024 MCH (RBC) [Entitic mass] 24.4 pg Low 27.0-32.0 [facility] Mean corpuscular hemoglobin concentration (MCHC) determinationOrdered By: Delgado Amaro on 06-03-2024 MCHC (RBC) [Mass/Vol] 30.2 g/dL Low 32-36 [facility] Mean platelet volume determi nationOrdered By: Delgado Amaro on 06-03-2024 Platelet mean volume (Bld) [Entitic vol] 9.7 fL 6.2-12.0 [facility] Platelet countOrdered By: Kade Amaro on 06-03-2024 Platelets (Bld) [#/Vol] 156 10*3/uL 150-450 [facility] RBC Auto (Bld) [#/Vol]Ordere d By: Delgado Amaro on 06-03-2024 RBC (Bld) [#/Vol] 4.09 10*6/uL Low 4.2-5.4 [facility] Serum glucose measurement (m ass/volume)Ordered By: Delgado Amaro on 06-03-2024 Glucose [Mass/Vol] 97 mg/dL Normal 70-99 [facility] Comment on above: Performed By: #### L 500.2500 ####[facility] [address] [place], [address] Serum or plasma anion gap de termination (moles/volume)Ordered By: Delgado Amaro on 06-03-2024 Anion gap [Moles/Vol] 10 mmol/L Normal 5-15 [facility] Comment on above: Performed By: #### L 500.2500 ####[facility] [address] [place], [address] Serum or plasma calcium kay urement (mass/volume)Ordered By: Delgado Amaro on 06-03-2024 Calcium [Mass/Vol] 9.3 mg/dL Normal 7.6-11.0 [facility] Comment on above: Performed By: #### L 500.2500 ####[facility] [address] [place], [address] Serum or plasma creatinine m easurement (moles/volume)Ordered By: Delgado Amaro on 06-03-2024 Creatinine [Mass/Vol] 1.2 mg/dL High 0.6-1.0 [facility] Comment on above: Performed By: #### L 500.2500 ####[facility] [address] [place], [address] Creatinine [Moles/Vol] 1.2 mg/dL High 0.6-1.0 [facility] Serum or plasma potassium me asurementOrdered By: Delgado Amaro on 06-03-2024 Potassium [Moles/Vol] 4.4 mmol/L Normal 3.3-5.1 [facility] Comment on above: Performed By: #### L 500.2500 ####[facility] [address] [place], [address] Serum or plasma sodium measu rement (moles/volume)Ordered By: Delgado Amaro on 06-03-2024 Sodium [Moles/Vol] 139 mmol/L Normal 133-145 [facility] Comment on above: Performed By: #### L 500.2500 ####[facility] [address] [place], [address] Serum or plasma urea nitroge n measurement (mass/volume)Ordered By: Delgado Amaro on 06-03-2024 Urea nitrogen [Mass/Vol] 30 mg/dL High 4-19 [facility] Comment on above: Performed By: #### L 500.2500 ####[facility] [address] [place], [address] White blood cell (WBC) count Ordered By: Delgado Amaro on 06-03-2024 WBC (Bld) [#/Vol] 6.0 10*3/uL 4.4-11.0 [facility] Automated blood erythrocyte countOrdered By: April Mullen on 06-02-2024 RBC (Bld) [#/Vol] 4.17 10*6/uL Low 4.2-5.4 [facility] Comment on above: Order Comment: 503.2 Performed By: #### L 500.2500, L100.0500 ####[facility] [address] [place], [address] Automated blood hematocrit ( percentage)Ordered By: April Mullen on 06-02-2024 Hematocrit (Bld) [Volume fraction] 34.0 % Low 37-47 [facility] Comment on above: Order Comment: 503.2 Performed By: #### L 500.2500, L100.0500 ####[facility] [address] [place], [address] Basic Metabolic Profile (BMP )on 06-02-2024 BUN/CRE 21.6 RATIO High 10-20 [facility] Comment on above: Order Comment: 503.2 Performed By: #### L 500.2500, L100.0500 ####[facility] [address] [place], [address] CA,Total 9.1 mg/dL Normal 8.5-10.1 [facility] Comment on above: Order Comment: 503.2 Performed By: #### L 500.2500, L100.0500 ####[facility] [address] [place], [address] EST GFR - AA 54 mL/min Low >60 [facility] Comment on above: Order Comment: 503.2 Result Comment: Afri can Gabonese GFR Calc Performed By: #### L 500.2500, L100.0500 ####[facility] [address] [place], [address] GAP 4 Low 5-15 [facility] Comment on above: Order Comment: 503.2 Performed By: #### L 500.2500, L100.0500 ####[facility] [address] [place], [address] Blood urea nitrogen (BUN)/cr eatinine ratioOrdered By: April Mullen on 06-02-2024 Urea nitrogen/Creatinine [Mass ratio] 21.6 mg/mg High 10-20 [facility] CBC-Complete Blood Cnt No Di ffon 06-02-2024 RDW SD 58.6 fl High 35.1-43.9 [facility] Comment on above: Order Comment: 503.2 Performed By: #### L 500.2500, L100.0500 ####[facility] [address] [place], [address] Carbon dioxide measurementOr dered By: April Mullen on 06-02-2024 CO2 [Moles/Vol] 33.0 mmol/L High 21.0-32.0 [facility] Comment on above: Order Comment: 503.2 Performed By: #### L 500.2500, L100.0500 ####[facility] [address] [place], [address] Chloride measurementOrdered By: April Mullen on 06-02-2024 Chloride [Moles/Vol] 101 mmol/L Normal 98-107 [facility] Comment on above: Order Comment: 503.2 Performed By: #### L 500.2500, L100.0500 ####[facility] [address] [place], [address] Erythrocyte distribution wid th ratioOrdered By: April Mullen on 06-02-2024 Erythrocyte distribution width (RBC) [Ratio] 20.0 % High 11.6-14.6 [facility] Comment on above: Order Comment: 503.2 Performed By: #### L 500.2500, L100.0500 ####[facility] [address] [place], [place], [id number] Erythrocyte distribution wid th standard deviationOrdered By: April Mullen on 06-02-2024 Erythrocyte distribution width (RBC) [Entitic vol] 58.6 fL High 35.1-43.9 [facility] Erythrocyte distribution width (RBC) [Ratio] 58.6 fl High 35.1-43.9 [facility] Estimated glomerular filtrat ion rate (GFR) AmericanOrdered By: April Mullen on 06-02-2024 Estimated GFR (MDRD) Amer 54 mL/min Low >60 [facility] Comment on above: GFR Calc Glomerular filtration rate ( GFR) estimationOrdered By: April Mullen on 06-02-2024 GFR/1.73 sq M.predicted among non-blacks MDRD (S/P/Bld) [Vol rate/Area] 44 mL/min/{1.73_m2} Low >60 [facility] Comment on above: Non- GFR Calc Order Comment: 503.2 Result Comment: Non- GFR Calc Performed By: #### L 500.2500, L100.0500 ####[facility] [address] [place], [place], [id number] Estimated GFR (MDRD) Non-Af Amer 44 mL/min Low >60 [facility] Comment on above: Non- GFR Calc Glucose measurementOrdered B y: April Mullen on 06-02-2024 Glucose [Mass/Vol] 101 mg/dL Normal 74-106 [facility] Comment on above: Fasting Glucose resu lt from 100 to 125 mg/dL suggests IMPAIRED HOMEOSTASIS per A.D.A. criteria. Order Comment: 503.2 Result Comment: Fast ing Glucose result from 100 to 125 mg/dLsuggests IMPAIRED HOMEOSTASIS per A.D.A. criteria. Performed By: #### L 500.2500, L100.0500 ####[facility] [address] [place], [address] Hemoglobin measurementOrdere d By: April Mullen on 06-02-2024 Hemoglobin (Bld) [Mass/Vol] 10.2 g/dL Low 12.0-15.0 [facility] Comment on above: Order Comment: 503.2 Performed By: #### L 500.2500, L100.0500 ####[facility] [address] [place], [address] MCV (mean corpuscular volume ) determinationOrdered By: April Mullen on 06-02-2024 MCV (RBC) [Entitic vol] 81.5 fL Normal 81-99 [facility] Comment on above: Order Comment: 503.2 Performed By: #### L 500.2500, L100.0500 ####[facility] [address] [place], [address] Mean corpuscular hemoglobin (MCH) determinationOrdered By: April Mullen on 06-02-2024 MCH (RBC) [Entitic mass] 24.5 pg Low 27.0-32.0 [facility] Comment on above: Order Comment: 503.2 Performed By: #### L 500.2500, L100.0500 ####[facility] [address] [place], [address] Mean corpuscular hemoglobin concentration (MCHC) determinationOrdered By: April Mullen on 06-02-2024 MCHC (RBC) [Mass/Vol] 30.0 g/dL Low 32-36 [facility] Comment on above: Order Comment: 503.2 Performed By: #### L 500.2500, L100.0500 ####[facility] [address] [place], [address] Mean platelet volume determi nationOrdered By: April Mullen on 06-02-2024 Platelet mean volume (Bld) [Entitic vol] 9.8 fL Normal 6.2-12.0 [facility] Comment on above: Order Comment: 503.2 Performed By: #### L 500.2500, L100.0500 ####[facility] [address] [place], [address] Platelet countOrdered By: Darvin Mullen on 06-02-2024 Platelets (Bld) [#/Vol] 174 10*3/uL Normal 150-450 [facility] Comment on above: Order Comment: 503.2 Performed By: #### L 500.2500, L100.0500 ####[facility] [address] [place], [address] Potassium measurementOrdered By: April Mullen on 06-02-2024 Potassium [Moles/Vol] 4.2 mmol/L Normal 3.5-5.1 [facility] Comment on above: Order Comment: 503.2 Performed By: #### L 500.2500, L100.0500 ####[facility] [address] [place], [address] Serum anion gap measurementO rdered By: April Mullen on 06-02-2024 Anion gap [Moles/Vol] 4 mmol/L Low 5-15 [facility] Serum or plasma calcium kay urement (mass/volume)Ordered By: April Mullen on 06-02-2024 Calcium [Mass/Vol] 9.1 mg/dL 8.5-10.1 [facility] Serum or plasma creatinine m easurement (mass/volume)Ordered By: April Mullen on 06-02-2024 Creatinine [Mass/Vol] 1.25 mg/dL High 0.55-1.02 [facility] Comment on above: The validity of the calculated GFR & GFRAA in patients over 70 years has not been determined. Clinical correlation is essential. Order Comment: 503.2 Result Comment: The validity of the calculated GFR GFRAA in patients over70 years has not been determined. Clinical correlation isessential. Performed By: #### L 500.2500, L100.0500 ####[facility] [address] [place], [address] Serum or plasma urea nitroge n measurement (mass/volume)Ordered By: April Mullen on 06-02-2024 Urea nitrogen [Mass/Vol] 27 mg/dL High 7-18 [facility] Comment on above: Order Comment: 503.2 Performed By: #### L 500.2500, L100.0500 ####[facility] [address] [place], [address] Sodium levelOrdered By: Yair Mullen on 06-02-2024 Sodium [Moles/Vol] 138 mmol/L Normal 136-145 [facility] Comment on above: Order Comment: 503.2 Performed By: #### L 500.2500, L100.0500 ####[facility] [address] [place], [address] White blood cell (WBC) count Ordered By: April Mullen on 06-02-2024 WBC (Bld) [#/Vol] 6.4 10*3/uL Normal 4.4-11.0 [facility] Comment on above: Order Comment: 503.2 Performed By: #### L 500.2500, L100.0500 ####[facility] [address] [place], [address] Basic Metabolic Profile (BMP )on 05-27-2024 BUN/CRE 20.0 RATIO Normal 10-20 [facility] Comment on above: Order Comment: 503.2 Performed By: #### L 500.2500, L100.0500, L100.4500 ####[facility] [address] [place], [address] CA,Total 8.7 mg/dL Normal 8.5-10.1 [facility] Comment on above: Order Comment: 503.2 Performed By: #### L 500.2500, L100.0500, L100.4500 ####[facility] [address] [place], [address] Chloride [Moles/Vol] 104 mmol/L Normal 98-107 [facility] Comment on above: Order Comment: 503.2 Performed By: #### L 500.2500, L100.0500, L100.4500 ####[facility] [address] [place], [address] CO2 [Moles/Vol] 30.0 mmol/L Normal 21.0-32.0 [facility] Comment on above: Order Comment: 503.2 Performed By: #### L 500.2500, L100.0500, L100.4500 ####[facility] [address] [place], [address] Creatinine [Mass/Vol] 1.25 mg/dL High 0.55-1.02 [facility] Comment on above: Order Comment: 503.2 Result Comment: The validity of the calculated GFR GFRAA in patients over70 years has not been determined. Clinical correlation isessential. Performed By: #### L 500.2500, L100.0500, L100.4500 ####[facility] [address] [place], [address] EST GFR - AA 54 mL/min Low >60 [facility] Comment on above: Order Comment: 503.2 Result Comment: Afri can Gabonese GFR Calc Performed By: #### L 500.2500, L100.0500, L100.4500 ####[facility] [address] [place], [address] GAP 7 Normal 5-15 [facility] Comment on above: Order Comment: 503.2 Performed By: #### L 500.2500, L100.0500, L100.4500 ####[facility] [address] [place], [address] GFR/1.73 sq M.predicted among non-blacks MDRD (S/P/Bld) [Vol rate/Area] 44 mL/min/{1.73_m2} Low >60 [facility] Comment on above: Order Comment: 503.2 Result Comment: Non- GFR Calc Performed By: #### L 500.2500, L100.0500, L100.4500 ####[facility] [address] [place], [address] Glucose [Mass/Vol] 101 mg/dL Normal 74-106 [facility] Comment on above: Order Comment: 503.2 Result Comment: Fast ing Glucose result from 100 to 125 mg/dLsuggests IMPAIRED HOMEOSTASIS per A.D.A. criteria. Performed By: #### L 500.2500, L100.0500, L100.4500 ####[facility] [address] [place], [address] Potassium [Moles/Vol] 3.7 mmol/L Normal 3.5-5.1 [facility] Comment on above: Order Comment: 503.2 Performed By: #### L 500.2500, L100.0500, L100.4500 ####[facility] [address] [place], [address] Sodium [Moles/Vol] 141 mmol/L Normal 136-145 [facility] Comment on above: Order Comment: 503.2 Performed By: #### L 500.2500, L100.0500, L100.4500 ####[facility] [address] [place], [address] Urea nitrogen [Mass/Vol] 25 mg/dL High 7-18 [facility] Comment on above: Order Comment: 503.2 Performed By: #### L 500.2500, L100.0500, L100.4500 ####[facility] [address] [place], [address] Blood manual differential co mment interpretation (narrative result)Ordered By: April Mullen on 02-18-2025 Manual differential comment Jd (Bld) [Interp] See comment [facility] Comment on above: 1+ ANISOCYTOSIS1+ OV ALOCYTESSLIGHTLY DECREASED PLATELETS Blood urea nitrogen (BUN)/cr eatinine ratioOrdered By: April Mullen on 05-27-2024 Urea nitrogen/Creatinine [Mass ratio] 20.0 mg/mg 10-20 [facility] CBC-Complete Blood Cnt No Di ffon 05-27-2024 Erythrocyte distribution width (RBC) [Ratio] 20.2 % High 11.6-14.6 [facility] Comment on above: Order Comment: 503.2 Performed By: #### L 500.2500, L100.0500, L100.4500 ####[facility] [address] [place], [address] Hematocrit (Bld) [Volume fraction] 35.3 % Low 37-47 [facility] Comment on above: Order Comment: 503.2 Performed By: #### L 500.2500, L100.0500, L100.4500 ####[facility] [address] [place], [address] Hemoglobin (Bld) [Mass/Vol] 10.5 g/dL Low 12.0-15.0 [facility] Comment on above: Order Comment: 503.2 Performed By: #### L 500.2500, L100.0500, L100.4500 ####[facility] [address] [place], [address] MCH (RBC) [Entitic mass] 24.0 pg Low 27.0-32.0 [facility] Comment on above: Order Comment: 503.2 Performed By: #### L 500.2500, L100.0500, L100.4500 ####[facility] [address] [place], [address] MCHC (RBC) [Mass/Vol] 29.7 g/dL Low 32-36 [facility] Comment on above: Order Comment: 503.2 Performed By: #### L 500.2500, L100.0500, L100.4500 ####[facility] [address] [place], [address] MCV (RBC) [Entitic vol] 80.6 fL Low 81-99 [facility] Comment on above: Order Comment: 503.2 Performed By: #### L 500.2500, L100.0500, L100.4500 ####[facility] [address] [place], [address] Platelet mean volume (Bld) [Entitic vol] 9.2 fL Normal 6.2-12.0 [facility] Comment on above: Order Comment: 503.2 Performed By: #### L 500.2500, L100.0500, L100.4500 ####[facility] [address] [place], [address] Platelets (Bld) [#/Vol] 149 10*3/uL Low 150-450 [facility] Comment on above: Order Comment: 503.2 Performed By: #### L 500.2500, L100.0500, L100.4500 ####[facility] [address] [place], [address] RBC (Bld) [#/Vol] 4.38 10*6/uL Normal 4.2-5.4 [facility] Comment on above: Order Comment: 503.2 Performed By: #### L 500.2500, L100.0500, L100.4500 ####[facility] [address] [place], [address] RDW SD 58.6 fl High 35.1-43.9 [facility] Comment on above: Order Comment: 503.2 Performed By: #### L 500.2500, L100.0500, L100.4500 ####[facility] [address] [place], [address] WBC (Bld) [#/Vol] 5.3 10*3/uL Normal 4.4-11.0 [facility] Comment on above: Order Comment: 503.2 Performed By: #### L 500.2500, L100.0500, L100.4500 ####[facility] [address] [place], [address] Carbon dioxide measurementOr dered By: April Mullen on 05-27-2024 CO2 [Moles/Vol] 30.0 mmol/L 21.0-32.0 [facility] Chloride measurementOrdered By: pAril Mullen on 05-27-2024 Chloride [Moles/Vol] 104 mmol/L 98-107 [facility] Differential Commenton 05-27 SMEAR COMMENT Normal [facility] Comment on above: Order Comment: 503.2 Result Comment: 1+ A NISOCYTOSIS1+ OVALOCYTESSLIGHTLY DECREASED PLATELETS Performed By: #### L 500.2500, L100.0500, L100.4500 ####[facility] [address] [place], [address] Erythrocyte distribution wid th ratioOrdered By: April Mullen on 05-27-2024 Erythrocyte distribution width (RBC) [Ratio] 20.2 % High 11.6-14.6 [facility] Erythrocyte distribution wid th standard deviationOrdered By: April Mullen on 05-27-2024 Erythrocyte distribution width (RBC) [Entitic vol] 58.6 fL High 35.1-43.9 [facility] Erythrocyte distribution width (RBC) [Ratio] 58.6 fl High 35.1-43.9 [facility] Estimated glomerular filtrat ion rate (GFR) AmericanOrdered By: April Mullen on 05-27-2024 Estimated GFR (MDRD) Amer 54 mL/min Low >60 [facility] Comment on above: GFR Calc Glomerular filtration rate ( GFR) estimationOrdered By: April Mullen on 05-27-2024 Estimated GFR (MDRD) Non-Af Amer 44 mL/min Low >60 [facility] Comment on above: Non- GFR Calc GFR/1.73 sq M.predicted among non-blacks MDRD (S/P/Bld) [Vol rate/Area] 44 mL/min/{1.73_m2} Low >60 [facility] Comment on above: Non- GFR Calc Glucose measurementOrdered B y: April Mullen on 05-27-2024 Glucose [Mass/Vol] 101 mg/dL 74-106 [facility] Comment on above: Fasting Glucose resu lt from 100 to 125 mg/dL suggests IMPAIRED HOMEOSTASIS per A.D.A. criteria. Hematocrit Auto (Bld) [Volum e fraction]Ordered By: April Mullen on 05-27-2024 Hematocrit (Bld) [Volume fraction] 35.3 % Low 37-47 [facility] Hemoglobin measurementOrdere d By: April Mullen on 05-27-2024 Hemoglobin (Bld) [Mass/Vol] 10.5 g/dL Low 12.0-15.0 [facility] MCV (mean corpuscular volume ) determinationOrdered By: April Mullen on 05-27-2024 MCV (RBC) [Entitic vol] 80.6 fL Low 81-99 [facility] Manual differential comment Jd (Bld) [Interp]Ordered By: April Mullen on 05-27-2024 Differential Comment See comment [facility] Comment on above: 1+ ANISOCYTOSIS1+ OV ALOCYTESSLIGHTLY DECREASED PLATELETS Mean corpuscular hemoglobin (MCH) determinationOrdered By: April Mullen on 05-27-2024 MCH (RBC) [Entitic mass] 24.0 pg Low 27.0-32.0 [facility] Mean corpuscular hemoglobin concentration (MCHC) determinationOrdered By: April Mullen on 05-27-2024 MCHC (RBC) [Mass/Vol] 29.7 g/dL Low 32-36 [facility] Mean platelet volume determi nationOrdered By: April Mullen on 05-27-2024 Platelet mean volume (Bld) [Entitic vol] 9.2 fL 6.2-12.0 [facility] Platelet countOrdered By: Darvin Mullen on 05-27-2024 Platelets (Bld) [#/Vol] 149 10*3/uL Low 150-450 [facility] Potassium measurementOrdered By: April Mullen on 05-27-2024 Potassium [Moles/Vol] 3.7 mmol/L 3.5-5.1 [facility] RBC Auto (Bld) [#/Vol]Ordere d By: April Mullen on 05-27-2024 RBC (Bld) [#/Vol] 4.38 10*6/uL 4.2-5.4 [facility] Serum anion gap measurementO rdered By: April Mullen on 05-27-2024 Anion gap [Moles/Vol] 7 mmol/L 5-15 [facility] Serum or plasma calcium kay urement (mass/volume)Ordered By: April Mullen on 05-27-2024 Calcium [Mass/Vol] 8.7 mg/dL 8.5-10.1 [facility] Serum or plasma creatinine m easurement (mass/volume)Ordered By: April Mullen on 05-27-2024 Creatinine [Mass/Vol] 1.25 mg/dL High 0.55-1.02 [facility] Comment on above: The validity of the calculated GFR & GFRAA in patients over 70 years has not been determined. Clinical correlation is essential. Serum or plasma urea nitroge n measurement (mass/volume)Ordered By: April Mullen on 05-27-2024 Urea nitrogen [Mass/Vol] 25 mg/dL High 7-18 [facility] Sodium levelOrdered By: Yair Mullen on 05-27-2024 Sodium [Moles/Vol] 141 mmol/L 136-145 [facility] White blood cell (WBC) count Ordered By: Apirl Mullen on 05-27-2024 WBC (Bld) [#/Vol] 5.3 10*3/uL 4.4-11.0 [facility] 13-ZX-Qigwvci DOrdered By: Selina Amaro on 05-12-2024 Vitamin D 25-Hydroxy 41.0 ng/mL [facility] Comment on above: Vitamin D 25(OH) Sta tus Range Deficiency <20 ng/mL (50nmol/L) Insufficiency 20 - 30 ng/mL (50 - 75 nmol/L) Sufficiency 30 - 100 ng/mL (75 - 250 nmol/L) Toxicity >100 ng/mL (>250 nmol/L) Albumin to globulin ratioOrd ered By: Delgado Amaro on 05-12-2024 Albumin/Globulin [Mass ratio] 0.7 {ratio} Low 0.9-2.4 [facility] BNP (brain natriuretic pepti de measurement)Ordered By: Delgado Amaro on 05-12-2024 Natriuretic peptide B (Bld) [Mass/Vol] 403.6 pg/mL High 0-100 [facility] Comment on above: Performed By: #### L 100.0500, L506.1000, L100.4500, L500.4050, L503.6620 ####[facility] [address] [place], [place], [id number] Bilirubin, totalOrdered By: Delgado Amaro on 05-12-2024 Bilirubin [Mass/Vol] 0.20 mg/dL 0.20-1.00 [facility] Comment on above: For patients on eltr ombopag therapy, use of Dimension [place] TBIL is not recommended. Blood manual differential co mment interpretation (narrative result)Ordered By: Delgado Amaro on 05-12-2024 Manual differential comment Jd (Bld) [Interp] COMMENT [facility] Comment on above: 1+ ANISO. Blood urea nitrogen (BUN)/cr eatinine ratioOrdered By: Delgado Amaro on 05-12-2024 Urea nitrogen/Creatinine [Mass ratio] 26.5 mg/mg High 10-20 [facility] CBC-Complete Blood Cnt No Di ffon 05-12-2024 Erythrocyte distribution width (RBC) [Ratio] 20.8 % High 11.6-14.6 [facility] Comment on above: Performed By: #### L 100.0500, L506.1000, L100.4500, L500.4050, L503.6620 ####[facility] [address] [place], [place], [id number] Hematocrit (Bld) [Volume fraction] 31.4 % Low 37-47 [facility] Comment on above: Performed By: #### L 100.0500, L506.1000, L100.4500, L500.4050, L503.6620 ####[facility] [address] [place], [address] Hemoglobin (Bld) [Mass/Vol] 9.2 g/dL Low 12.0-15.0 [facility] Comment on above: Performed By: #### L 100.0500, L506.1000, L100.4500, L500.4050, L503.6620 ####[facility] [address] [place], [address] MCH (RBC) [Entitic mass] 23.8 pg Low 27.0-32.0 [facility] Comment on above: Performed By: #### L 100.0500, L506.1000, L100.4500, L500.4050, L503.6620 ####[facility] [address] [place], [address] MCHC (RBC) [Mass/Vol] 29.3 g/dL Low 32-36 [facility] Comment on above: Performed By: #### L 100.0500, L506.1000, L100.4500, L500.4050, L503.6620 ####[facility] [address] [place], [address] MCV (RBC) [Entitic vol] 81.3 fL Normal 81-99 [facility] Comment on above: Performed By: #### L 100.0500, L506.1000, L100.4500, L500.4050, L503.6620 ####[facility] [address] [place], [address] Platelet mean volume (Bld) [Entitic vol] 9.5 fL Normal 6.2-12.0 [facility] Comment on above: Performed By: #### L 100.0500, L506.1000, L100.4500, L500.4050, L503.6620 ####[facility] [address] [place], [address] Platelets (Bld) [#/Vol] 164 10*3/uL Normal 150-450 [facility] Comment on above: Performed By: #### L 100.0500, L506.1000, L100.4500, L500.4050, L503.6620 ####[facility] [address] [place], [address] RBC (Bld) [#/Vol] 3.86 10*6/uL Low 4.2-5.4 [facility] Comment on above: Performed By: #### L 100.0500, L506.1000, L100.4500, L500.4050, L503.6620 ####[facility] [address] [place], [address] RDW SD 60.6 fl High 35.1-43.9 [facility] Comment on above: Performed By: #### L 100.0500, L506.1000, L100.4500, L500.4050, L503.6620 ####[facility] [address] [place], [address] WBC (Bld) [#/Vol] 5.6 10*3/uL Normal 4.4-11.0 [facility] Comment on above: Performed By: #### L 100.0500, L506.1000, L100.4500, L500.4050, L503.6620 ####[facility] [address] [place], [address] Carbon dioxide measurementOr dered By: Delgado Amaro on 05-12-2024 CO2 [Moles/Vol] 30.0 mmol/L 21.0-32.0 [facility] Chloride measurementOrdered By: Delgado Amaro on 05-12-2024 Chloride [Moles/Vol] 103 mmol/L 98-107 [facility] Comprehensive Metabolic Prof ilon 05-12-2024 Albumin [Mass/Vol] 2.6 g/dL Low 3.2-5.0 [facility] Comment on above: Performed By: #### L 100.0500, L506.1000, L100.4500, L500.4050, L503.6620 ####[facility] [address] [place], [address] Albumin/Globulin [Mass ratio] 0.7 {ratio} Low 0.9-2.4 [facility] Comment on above: Performed By: #### L 100.0500, L506.1000, L100.4500, L500.4050, L503.6620 ####[facility] [address] [place], [address] ALK P 109 U/L Normal 45-117 [facility] Comment on above: Performed By: #### L 100.0500, L506.1000, L100.4500, L500.4050, L503.6620 ####[facility] [address] [place], [address] ALT [Catalytic activity/Vol] 14 U/L Normal 13-56 [facility] Comment on above: Performed By: #### L 100.0500, L506.1000, L100.4500, L500.4050, L503.6620 ####[facility] [address] [place], [address] AST [Catalytic activity/Vol] 20 U/L Normal 15-37 [facility] Comment on above: Performed By: #### L 100.0500, L506.1000, L100.4500, L500.4050, L503.6620 ####[facility] [address] [place], [address] Bilirubin [Mass/Vol] 0.20 mg/dL Normal 0.20-1.00 [facility] Comment on above: Result Comment: For patients on eltrombopag therapy, use of Dimension [place] TBIL is not recommended. Performed By: #### L 100.0500, L506.1000, L100.4500, L500.4050, L503.6620 ####[facility] [address] [place], [address] BUN/CRE 26.5 RATIO High 10-20 [facility] Comment on above: Performed By: #### L 100.0500, L506.1000, L100.4500, L500.4050, L503.6620 ####[facility] [address] [place], [address] CA,Total 9.0 mg/dL Normal 8.5-10.1 [facility] Comment on above: Performed By: #### L 100.0500, L506.1000, L100.4500, L500.4050, L503.6620 ####[facility] [address] [place], [address] Chloride [Moles/Vol] 103 mmol/L Normal 98-107 [facility] Comment on above: Performed By: #### L 100.0500, L506.1000, L100.4500, L500.4050, L503.6620 ####[facility] [address] [place], [address] CO2 [Moles/Vol] 30.0 mmol/L Normal 21.0-32.0 [facility] Comment on above: Performed By: #### L 100.0500, L506.1000, L100.4500, L500.4050, L503.6620 ####[facility] [address] [place], [address] Creatinine [Mass/Vol] 1.13 mg/dL High 0.55-1.02 [facility] Comment on above: Result Comment: The validity of the calculated GFR GFRAA in patients over70 years has not been determined. Clinical correlation isessential. Performed By: #### L 100.0500, L506.1000, L100.4500, L500.4050, L503.6620 ####[facility] [address] [place], [address] EST GFR - AA 60 mL/min Normal >60 [facility] Comment on above: Result Comment: Afri can Gabonese GFR Calc Performed By: #### L 100.0500, L506.1000, L100.4500, L500.4050, L503.6620 ####[facility] [address] [place], [address] GAP 7 Normal 5-15 [facility] Comment on above: Performed By: #### L 100.0500, L506.1000, L100.4500, L500.4050, L503.6620 ####[facility] [address] [place], [address] GFR/1.73 sq M.predicted among non-blacks MDRD (S/P/Bld) [Vol rate/Area] 50 mL/min/{1.73_m2} Low >60 [facility] Comment on above: Result Comment: Non- GFR Calc Performed By: #### L 100.0500, L506.1000, L100.4500, L500.4050, L503.6620 ####[facility] [address] [place], [address] Globulin (S) [Mass/Vol] 3.8 g/dL Normal 2.2-4.2 [facility] Comment on above: Performed By: #### L 100.0500, L506.1000, L100.4500, L500.4050, L503.6620 ####[facility] [address] [place], [address] Glucose [Mass/Vol] 97 mg/dL Normal 74-106 [facility] Comment on above: Performed By: #### L 100.0500, L506.1000, L100.4500, L500.4050, L503.6620 ####[facility] [address] [place], [address] Potassium [Moles/Vol] 3.6 mmol/L Normal 3.5-5.1 [facility] Comment on above: Performed By: #### L 100.0500, L506.1000, L100.4500, L500.4050, L503.6620 ####[facility] [address] [place], [address] Sodium [Moles/Vol] 140 mmol/L Normal 136-145 [facility] Comment on above: Performed By: #### L 100.0500, L506.1000, L100.4500, L500.4050, L503.6620 ####[facility] [address] [place], [address] T PROT 6.4 g/dL Normal 6.4-8.2 [facility] Comment on above: Performed By: #### L 100.0500, L506.1000, L100.4500, L500.4050, L503.6620 ####[facility] [address] [place], [address] Urea nitrogen [Mass/Vol] 30 mg/dL High 7-18 [facility] Comment on above: Performed By: #### L 100.0500, L506.1000, L100.4500, L500.4050, L503.6620 ####[facility] [address] [place], [address] Differential Commenton 05-12 SMEAR COMMENT COMMENT Normal [facility] Comment on above: Result Comment: 1+ A NISO. Performed By: #### L 100.0500, L506.1000, L100.4500, L500.4050, L503.6620 ####[facility] [address] [place], [address] Erythrocyte distribution wid th ratioOrdered By: Delgado Amaro on 05-12-2024 Erythrocyte distribution width (RBC) [Ratio] 20.8 % High 11.6-14.6 [facility] Erythrocyte distribution wid th standard deviationOrdered By: Delgado Amaro on 05-12-2024 Erythrocyte distribution width (RBC) [Entitic vol] 60.6 fL High 35.1-43.9 [facility] Erythrocyte distribution width (RBC) [Ratio] 60.6 fl High 35.1-43.9 [facility] Estimated glomerular filtrat ion rate (GFR) AmericanOrdered By: Delgado Amaro on 05-12-2024 Estimated GFR (MDRD) Amer 60 mL/min >60 [facility] Comment on above: GFR Calc Glomerular filtration rate ( GFR) estimationOrdered By: Delgado Amaro on 05-12-2024 Estimated GFR (MDRD) Non-Af Amer 50 mL/min Low >60 [facility] Comment on above: Non- GFR Calc GFR/1.73 sq M.predicted among non-blacks MDRD (S/P/Bld) [Vol rate/Area] 50 mL/min/{1.73_m2} Low >60 [facility] Comment on above: Non- GFR Calc Glucose measurementOrdered B y: Delgado Amaro on 05-12-2024 Glucose [Mass/Vol] 97 mg/dL 74-106 [facility] Hematocrit Auto (Bld) [Volum e fraction]Ordered By: Delgado Amaro on 05-12-2024 Hematocrit (Bld) [Volume fraction] 31.4 % Low 37-47 [facility] Hemoglobin measurementOrdere d By: Delgado Amaro on 05-12-2024 Hemoglobin (Bld) [Mass/Vol] 9.2 g/dL Low 12.0-15.0 [facility] Laboratory - Chemistry and C hemistry - challengeOrdered By: Delgado Amaro on 05-12-2024 AST [Catalytic activity/Vol] 20 U/L 15-37 [facility] MCV (mean corpuscular volume ) determinationOrdered By: Delgado Amaro on 05-12-2024 MCV (RBC) [Entitic vol] 81.3 fL 81-99 [facility] Manual differential comment Jd (Bld) [Interp]Ordered By: Delgado Amaro on 05-12-2024 Differential Comment COMMENT [facility] Comment on above: 1+ ANISO. Mean corpuscular hemoglobin (MCH) determinationOrdered By: Delgado Amaro on 05-12-2024 MCH (RBC) [Entitic mass] 23.8 pg Low 27.0-32.0 [facility] Mean corpuscular hemoglobin concentration (MCHC) determinationOrdered By: Delgado Amaro on 05-12-2024 MCHC (RBC) [Mass/Vol] 29.3 g/dL Low 32-36 [facility] Mean platelet volume determi nationOrdered By: Delgado Amaro on 05-12-2024 Platelet mean volume (Bld) [Entitic vol] 9.5 fL 6.2-12.0 [facility] Platelet countOrdered By: Kade Amaro on 05-12-2024 Platelets (Bld) [#/Vol] 164 10*3/uL 150-450 [facility] Potassium measurementOrdered By: Delgado Amaro on 05-12-2024 Potassium [Moles/Vol] 3.6 mmol/L 3.5-5.1 [facility] RBC Auto (Bld) [#/Vol]Ordere d By: Delgado Amaro on 05-12-2024 RBC (Bld) [#/Vol] 3.86 10*6/uL Low 4.2-5.4 [facility] Serum anion gap measurementO rdered By: Delgado Amaro on 05-12-2024 Anion gap [Moles/Vol] 7 mmol/L 5-15 [facility] Serum globulin measurementOr dered By: Delgado Amaro on 05-12-2024 Globulin (S) [Mass/Vol] 3.8 g/dL 2.2-4.2 [facility] Serum or plasma alanine sousa otransferase (ALT) measurementOrdered By: Delgado Amaro on 05-12-2024 ALT [Catalytic activity/Vol] 14 U/L 13-56 [facility] Serum or plasma albumin kay urement (mass/volume)Ordered By: Delgado Amaro on 05-12-2024 Albumin [Mass/Vol] 2.6 g/dL Low 3.2-5.0 [facility] Serum or plasma alkaline radha sphatase measurementOrdered By: Delgado Amaro on 05-12-2024 ALP [Catalytic activity/Vol] 109 U/L 45-117 [facility] Serum or plasma calcium kay urement (mass/volume)Ordered By: Delgado Amaro on 05-12-2024 Calcium [Mass/Vol] 9.0 mg/dL 8.5-10.1 [facility] Serum or plasma creatinine m easurement (mass/volume)Ordered By: Delgado Amaro on 05-12-2024 Creatinine [Mass/Vol] 1.13 mg/dL High 0.55-1.02 [facility] Comment on above: The validity of the calculated GFR & GFRAA in patients over 70 years has not been determined. Clinical correlation is essential. Serum or plasma urea nitroge n measurement (mass/volume)Ordered By: Delgado Amaro on 05-12-2024 Urea nitrogen [Mass/Vol] 30 mg/dL High 7-18 [facility] Sodium levelOrdered By: Dimitry Amaro on 05-12-2024 Sodium [Moles/Vol] 140 mmol/L 136-145 [facility] Total proteinOrdered By: Bill Amaro on 05-12-2024 Protein [Mass/Vol] 6.4 g/dL 6.4-8.2 [facility] Vitamin D,25 Hydroxyon 05-12 Vitamin D 25-OH 41.0 ng/mL Normal [facility] Comment on above: Result Comment: Ele min D 25(OH) Status Range Deficiency <20 ng/mL (50nmol/L) Insufficiency 20 - 30 ng/mL (50 - 75 nmol/L) Sufficiency 30 - 100 ng/mL (75 - 250 nmol/L) Toxicity >100 ng/mL (>250 nmol/L) Performed By: #### L 100.0500, L506.1000, L100.4500, L500.4050, L503.6620 ####[facility] [address] [place], [address] White blood cell (WBC) count Ordered By: Delgado Amaro on 05-12-2024 WBC (Bld) [#/Vol] 5.6 10*3/uL 4.4-11.0 [facility] Gastroenterology Visit Repor ton 04-28-2024 Gastroenterology Visit Report Normal [facility] CBC-Complete Blood Cnt No Di ffon 04-14-2024 Erythrocyte distribution width (RBC) [Ratio] 16.0 % High 11.6-14.6 [facility] Comment on above: Performed By: #### L 503.6075, L100.0500, L503.6150, L503.6550 ####[facility] [address] [place], [address] Hematocrit (Bld) [Volume fraction] 26.3 % Low 37-47 [facility] Comment on above: Performed By: #### L 503.6075, L100.0500, L503.6150, L503.6550 ####[facility] [address] [place], [address] Hemoglobin (Bld) [Mass/Vol] 7.7 g/dL Low 12.0-15.0 [facility] Comment on above: Performed By: #### L 503.6075, L100.0500, L503.6150, L503.6550 ####[facility] [address] [place], [address] MCH (RBC) [Entitic mass] 22.8 pg Low 27.0-32.0 [facility] Comment on above: Performed By: #### L 503.6075, L100.0500, L503.6150, L503.6550 ####[facility] [address] [place], [address] MCHC (RBC) [Mass/Vol] 29.3 g/dL Low 32-36 [facility] Comment on above: Performed By: #### L 503.6075, L100.0500, L503.6150, L503.6550 ####[facility] [address] [place], [address] MCV (RBC) [Entitic vol] 78.0 fL Low 81-99 [facility] Comment on above: Performed By: #### L 503.6075, L100.0500, L503.6150, L503.6550 ####[facility] [address] [place], [address] Platelet mean volume (Bld) [Entitic vol] 10.0 fL Normal 6.2-12.0 [facility] Comment on above: Performed By: #### L 503.6075, L100.0500, L503.6150, L503.6550 ####[facility] [address] [place], [address] Platelets (Bld) [#/Vol] 225 10*3/uL Normal 150-450 [facility] Comment on above: Performed By: #### L 503.6075, L100.0500, L503.6150, L503.6550 ####[facility] [address] [place], [address] RBC (Bld) [#/Vol] 3.37 10*6/uL Low 4.2-5.4 [facility] Comment on above: Performed By: #### L 503.6075, L100.0500, L503.6150, L503.6550 ####[facility] [address] [place], [address] RDW SD 45.4 fl High 35.1-43.9 [facility] Comment on above: Performed By: #### L 503.6075, L100.0500, L503.6150, L503.6550 ####[facility] [address] [place], [address] WBC (Bld) [#/Vol] 7.3 10*3/uL Normal 4.4-11.0 [facility] Comment on above: Performed By: #### L 503.6075, L100.0500, L503.6150, L503.6550 ####[facility] [address] [place], [place], [id number] Erythrocyte distribution wid th ratioOrdered By: April Mullen on 04-14-2024 Erythrocyte distribution width (RBC) [Ratio] 16.0 % High 11.6-14.6 [facility] Erythrocyte distribution wid th standard deviationOrdered By: April Mullen on 04-14-2024 Erythrocyte distribution width (RBC) [Entitic vol] 45.4 fL High 35.1-43.9 [facility] Ferritinon 04-14-2024 Ferritin [Mass/Vol] 162 ng/mL Normal 8-252 [facility] Comment on above: Order Comment: 503.2 Performed By: #### L 503.6075, L100.0500, L503.6150, L503.6550 ####[facility] [address] [place], [place], [id number] Ferritin measurementOrdered By: April Mullen on 04-14-2024 Ferritin [Mass/Vol] 162 ng/mL 8-252 [facility] Hematocrit Auto (Bld) [Volum e fraction]Ordered By: April Mullen on 04-14-2024 Hematocrit (Bld) [Volume fraction] 26.3 % Low 37-47 [facility] Hemoglobin measurementOrdere d By: April Mullen on 04-14-2024 Hemoglobin (Bld) [Mass/Vol] 7.7 g/dL Low 12.0-15.0 [facility] Ironon 04-14-2024 Iron [Mass/Vol] 17 ug/dL Low 50-170 [facility] Comment on above: Order Comment: 503.2 Performed By: #### L 503.6075, L100.0500, L503.6150, L503.6550 ####[facility] [address] [place], [place], [phone] (Unsp spec) [Mass/Mass] Ordered By: April Mullen on 04-14-2024 Iron [Mass/Vol] 17 ug/dL Low 50-170 [facility] Iron Binding Capacity,Totalo n 04-14-2024 TIBC 286 ug/dL Normal 250-450 [facility] Comment on above: Order Comment: 503.2 Performed By: #### L 503.6075, L100.0500, L503.8914, L503.9783 ####[facility] [address] [place], [place], [id number] MCV (mean corpuscular volume ) determinationOrdered By: April Mullen on 04-14-2024 MCV (RBC) [Entitic vol] 78.0 fL Low 81-99 [facility] Mean corpuscular hemoglobin (MCH) determinationOrdered By: April Mullen on 04-14-2024 MCH (RBC) [Entitic mass] 22.8 pg Low 27.0-32.0 [facility] Mean corpuscular hemoglobin concentration (MCHC) determinationOrdered By: April Mullen on 04-14-2024 MCHC (RBC) [Mass/Vol] 29.3 g/dL Low 32-36 [facility] Mean platelet volume determi nationOrdered By: April Mullen on 04-14-2024 Platelet mean volume (Bld) [Entitic vol] 10.0 fL 6.2-12.0 [facility] Platelet countOrdered By: Darvin Mullen on 04-14-2024 Platelets (Bld) [#/Vol] 225 10*3/uL 150-450 [facility] RBC Auto (Bld) [#/Vol]Ordere d By: April Mullen on 04-14-2024 RBC (Bld) [#/Vol] 3.37 10*6/uL Low 4.2-5.4 [facility] TIBCOrdered By: April Mullen on 04-14-2024 Total Iron Binding Capacity 286 ug/dL 250-450 [facility] White blood cell (WBC) count Ordered By: April Mullen on 04-14-2024 WBC (Bld) [#/Vol] 7.3 10*3/uL 4.4-11.0 [facility] Automated blood erythrocyte countOrdered By: April Mullen on 04-07-2024 RBC (Bld) [#/Vol] 3.28 10*6/uL Low 4.2-5.4 [facility] Comment on above: Order Comment: 503-2 Performed By: #### Hola TS, L100.0500 ####[facility] [address] [place], [address] Automated blood hematocrit ( percentage)Ordered By: April Mullen on 04-07-2024 Hematocrit (Bld) [Volume fraction] 25.6 % Low 37-47 [facility] Comment on above: Order Comment: 503-2 Performed By: #### Hola TS, L100.0500 ####[facility] [address] [place], [address] CBC-Complete Blood Cnt No Di ffon 04-07-2024 RDW SD 44.5 fl High 35.1-43.9 [facility] Comment on above: Order Comment: 503-2 Performed By: #### Hola TS, L100.0500 ####[facility] [address] [place], [address] Erythrocyte distribution wid th ratioOrdered By: April Mullen on 04-07-2024 Erythrocyte distribution width (RBC) [Ratio] 15.7 % High 11.6-14.6 [facility] Comment on above: Order Comment: 503-2 Performed By: #### B TS, L100.0500 ####[facility] [address] [place], [address] Erythrocyte distribution wid th standard deviationOrdered By: April Mullen on 04-07-2024 Erythrocyte distribution width (RBC) [Entitic vol] 44.5 fL High 35.1-43.9 [facility] Hemoglobin measurementOrdere d By: April Mullen on 04-07-2024 Hemoglobin (Bld) [Mass/Vol] 7.5 g/dL Low 12.0-15.0 [facility] Comment on above: Order Comment: 503-2 Performed By: #### B TS, L100.0500 ####[facility] [address] [place], [address] MCV (mean corpuscular volume ) determinationOrdered By: April Mullen on 04-07-2024 MCV (RBC) [Entitic vol] 78.0 fL Low 81-99 [facility] Comment on above: Order Comment: 503-2 Performed By: #### B TS, L100.0500 ####[facility] [address] [place], [address] Mean corpuscular hemoglobin (MCH) determinationOrdered By: April Lowa on 04-07-2024 MCH (RBC) [Entitic mass] 22.9 pg Low 27.0-32.0 [facility] Comment on above: Order Comment: 503-2 Performed By: #### B TS, L100.0500 ####[facility] [address] [place], [address] Mean corpuscular hemoglobin concentration (MCHC) determinationOrdered By: April Mullen on 04-07-2024 MCHC (RBC) [Mass/Vol] 29.3 g/dL Low 32-36 [facility] Comment on above: Order Comment: 503-2 Performed By: #### B TS, L100.0500 ####[facility] [address] [place], [address] Mean platelet volume determi nationOrdered By: April Mullen on 04-07-2024 Platelet mean volume (Bld) [Entitic vol] 10.1 fL Normal 6.2-12.0 [facility] Comment on above: Order Comment: 503-2 Performed By: #### B TS, L100.0500 ####[facility] [address] [place], [address] Platelet countOrdered By: Darvin Mullen on 04-07-2024 Platelets (Bld) [#/Vol] 203 10*3/uL Normal 150-450 [facility] Comment on above: Order Comment: 503-2 Performed By: #### B NAUN, L100.0500 ####[facility] [address] [place], [address] Type AND Screenon 04-07-2024 Ab SCREEN GEL Negative Normal [facility] Comment on above: Order Comment: 503-2 A Performed By: #### B NAUN, L100.0500 ####[facility] [address] [place], [address] White blood cell (WBC) count Ordered By: April Mullen on 04-07-2024 WBC (Bld) [#/Vol] 6.7 10*3/uL Normal 4.4-11.0 [facility] Comment on above: Order Comment: 503-2 Performed By: #### Hola MAGALLON, L100.0500 ####[facility] [address] [place], [address] CBC-Complete Blood Cnt No Di ffon 04-03-2024 Erythrocyte distribution width (RBC) [Ratio] 15.7 % High 11.6-14.6 [facility] Comment on above: Order Comment: 503.2 Performed By: #### L 100.0500 ####[facility] [address] [place], [address] Hematocrit (Bld) [Volume fraction] 24.8 % Low 37-47 [facility] Comment on above: Order Comment: 503.2 Performed By: #### L 100.0500 ####[facility] [address] [place], [address] Hemoglobin (Bld) [Mass/Vol] 7.2 g/dL Low 12.0-15.0 [facility] Comment on above: Order Comment: 503.2 Performed By: #### L 100.0500 ####[facility] [address] [place], [address] MCH (RBC) [Entitic mass] 22.9 pg Low 27.0-32.0 [facility] Comment on above: Order Comment: 503.2 Performed By: #### L 100.0500 ####[facility] [address] [place], [address] MCHC (RBC) [Mass/Vol] 29.0 g/dL Low 32-36 [facility] Comment on above: Order Comment: 503.2 Performed By: #### L 100.0500 ####[facility] [address] [place], [address] MCV (RBC) [Entitic vol] 78.7 fL Low 81-99 [facility] Comment on above: Order Comment: 503.2 Performed By: #### L 100.0500 ####[facility] [address] [place], [address] Platelet mean volume (Bld) [Entitic vol] 9.8 fL Normal 6.2-12.0 [facility] Comment on above: Order Comment: 503.2 Performed By: #### L 100.0500 ####[facility] [address] [place], [address] Platelets (Bld) [#/Vol] 155 10*3/uL Normal 150-450 [facility] Comment on above: Order Comment: 503.2 Performed By: #### L 100.0500 ####[facility] [address] [place], [address] RBC (Bld) [#/Vol] 3.15 10*6/uL Low 4.2-5.4 [facility] Comment on above: Order Comment: 503.2 Performed By: #### L 100.0500 ####[facility] [address] [place], [address] RDW SD 44.7 fl High 35.1-43.9 [facility] Comment on above: Order Comment: 503.2 Performed By: #### L 100.0500 ####[facility] [address] [place], [place], [phone]) WBC (Bld) [#/Vol] 5.9 10*3/uL Normal 4.4-11.0 [facility] Comment on above: Order Comment: 503.2 Performed By: #### L 100.0500 ####[facility] [address] [place], [place], [phone] Erythrocyte distribution wid th ratioOrdered By: April Mullen on 04-03-2024 Erythrocyte distribution width (RBC) [Ratio] 15.7 % High 11.6-14.6 [facility] Erythrocyte distribution wid th standard deviationOrdered By: April Mullen on 04-03-2024 Erythrocyte distribution width (RBC) [Entitic vol] 44.7 fL High 35.1-43.9 [facility] Hematocrit Auto (Bld) [Volum e fraction]Ordered By: April Mullen on 04-03-2024 Hematocrit (Bld) [Volume fraction] 24.8 % Low 37-47 [facility] Hemoglobin measurementOrdere d By: April Mullen on 04-03-2024 Hemoglobin (Bld) [Mass/Vol] 7.2 g/dL Low 12.0-15.0 [facility] MCV (mean corpuscular volume ) determinationOrdered By: April Mullen on 04-03-2024 MCV (RBC) [Entitic vol] 78.7 fL Low 81-99 [facility] Mean corpuscular hemoglobin (MCH) determinationOrdered By: April Mullen on 04-03-2024 MCH (RBC) [Entitic mass] 22.9 pg Low 27.0-32.0 [facility] Mean corpuscular hemoglobin concentration (MCHC) determinationOrdered By: April Mullen on 04-03-2024 MCHC (RBC) [Mass/Vol] 29.0 g/dL Low 32-36 [facility] Mean platelet volume determi nationOrdered By: April Mullen on 04-03-2024 Platelet mean volume (Bld) [Entitic vol] 9.8 fL 6.2-12.0 [facility] Platelet countOrdered By: Darvin Mullen on 04-03-2024 Platelets (Bld) [#/Vol] 155 10*3/uL 150-450 [facility] RBC Auto (Bld) [#/Vol]Ordere d By: April Mullen on 04-03-2024 RBC (Bld) [#/Vol] 3.15 10*6/uL Low 4.2-5.4 [facility] White blood cell (WBC) count Ordered By: April Mullen on 04-03-2024 WBC (Bld) [#/Vol] 5.9 10*3/uL 4.4-11.0 [facility] 12 Lead EKGon 03-28-2024 12 Lead EKG Normal [facility] Basic Metabolic Profile (BMP )on 03-28-2024 BUN/CRE 20.2 RATIO High - [facility] Comment on above: Order Comment: 503.2 Performed By: #### L 100.0500, L500.2500, L500.4100, L501.9985 ####[facility] [address] [place], [address] CA,Total 8.8 mg/dL Normal 8.5-10.1 [facility] Comment on above: Order Comment: 503.2 Performed By: #### L 100.0500, L500.2500, L500.4100, L501.9985 ####[facility] [address] [place], [address] Chloride [Moles/Vol] 104 mmol/L Normal 98-107 [facility] Comment on above: Order Comment: 503.2 Performed By: #### L 100.0500, L500.2500, L500.4100, L501.9985 ####[facility] [address] [place], [address] CO2 [Moles/Vol] 28.0 mmol/L Normal 21.0-32.0 [facility] Comment on above: Order Comment: 503.2 Performed By: #### L 100.0500, L500.2500, L500.4100, L501.9985 ####[facility] [address] [place], [address] Creatinine [Mass/Vol] 1.09 mg/dL High 0.55-1.02 [facility] Comment on above: Order Comment: 503.2 Result Comment: The validity of the calculated GFR GFRAA in patients over70 years has not been determined. Clinical correlation isessential. Performed By: #### L 100.0500, L500.2500, L500.4100, L501.9985 ####[facility] [address] [place], [address] EST GFR - AA 63 mL/min Normal >60 [facility] Comment on above: Order Comment: 503.2 Result Comment: Afri can [place] GFR Calc Performed By: #### L 100.0500, L500.2500, L500.4100, L501.9985 ####[facility] [address] [place], [address] GAP 5 Normal 5-15 [facility] Comment on above: Order Comment: 503.2 Performed By: #### L 100.0500, L500.2500, L500.4100, L501.9985 ####[facility] [address] [place], [address] GFR/1.73 sq M.predicted among non-blacks MDRD (S/P/Bld) [Vol rate/Area] 52 mL/min/{1.73_m2} Low >60 [facility] Comment on above: Order Comment: 503.2 Result Comment: Non- GFR Calc Performed By: #### L 100.0500, L500.2500, L500.4100, L501.9985 ####[facility] [address] [place], [address] Glucose [Mass/Vol] 112 mg/dL High 74-106 [facility] Comment on above: Order Comment: 503.2 Result Comment: Fast ing Glucose result from 100 to 125 mg/dLsuggests IMPAIRED HOMEOSTASIS per A.D.A. criteria. Performed By: #### L 100.0500, L500.2500, L500.4100, L501.9985 ####[facility] [address] [place], [address] Potassium [Moles/Vol] 3.9 mmol/L Normal 3.5-5.1 [facility] Comment on above: Order Comment: 503.2 Performed By: #### L 100.0500, L500.2500, L500.4100, L501.9985 ####[facility] [address] [place], [address] Sodium [Moles/Vol] 136 mmol/L Normal 136-145 [facility] Comment on above: Order Comment: 503.2 Performed By: #### L 100.0500, L500.2500, L500.4100, L501.9985 ####[facility] [address] [place], [address] Urea nitrogen [Mass/Vol] 22 mg/dL High 7-18 [facility] Comment on above: Order Comment: 503.2 Performed By: #### L 100.0500, L500.2500, L500.4100, L501.9985 ####[facility] [address] [place], [address] Bilirubin directOrdered By: uSjatha Hebert on 03-28-2024 Bilirubin.direct [Mass/Vol] 0.12 mg/dL 0.00-0.30 [facility] Bilirubin, totalOrdered By: Sujatha Hebert on 03-28-2024 Bilirubin [Mass/Vol] 0.20 mg/dL 0.20-1.00 [facility] Comment on above: For patients on eltr ombopag therapy, use of Dimension [place] TBIL is not recommended. Blood urea nitrogen (BUN)/cr eatinine ratioOrdered By: Dominic Lim on 03-28-2024 Urea nitrogen/Creatinine [Mass ratio] 20.2 mg/mg High 10-20 [facility] CBC-Complete Blood Cnt No Di ffon 03-28-2024 Erythrocyte distribution width (RBC) [Ratio] 15.9 % High 11.6-14.6 [facility] Comment on above: Order Comment: 503.2 Performed By: #### L 100.0500, L500.2500, L500.4100, L501.9985 ####[facility] [address] [place], [address] Hematocrit (Bld) [Volume fraction] 23.3 % Low 37-47 [facility] Comment on above: Order Comment: 503.2 Performed By: #### L 100.0500, L500.2500, L500.4100, L501.9985 ####[facility] [address] [place], [address] Hemoglobin (Bld) [Mass/Vol] 6.9 g/dL Low 12.0-15.0 [facility] Comment on above: Order Comment: 503.2 Performed By: #### L 100.0500, L500.2500, L500.4100, L501.9985 ####[facility] [address] [place], [address] MCH (RBC) [Entitic mass] 23.2 pg Low 27.0-32.0 [facility] Comment on above: Order Comment: 503.2 Performed By: #### L 100.0500, L500.2500, L500.4100, L501.9985 ####[facility] [address] [place], [address] MCHC (RBC) [Mass/Vol] 29.6 g/dL Low 32-36 [facility] Comment on above: Order Comment: 503.2 Performed By: #### L 100.0500, L500.2500, L500.4100, L501.9985 ####[facility] [address] [place], [address] MCV (RBC) [Entitic vol] 78.5 fL Low 81-99 [facility] Comment on above: Order Comment: 503.2 Performed By: #### L 100.0500, L500.2500, L500.4100, L501.9985 ####[facility] [address] [place], [address] Platelet mean volume (Bld) [Entitic vol] 9.7 fL Normal 6.2-12.0 [facility] Comment on above: Order Comment: 503.2 Performed By: #### L 100.0500, L500.2500, L500.4100, L501.9985 ####[facility] [address] [place], [address] Platelets (Bld) [#/Vol] 172 10*3/uL Normal 150-450 [facility] Comment on above: Order Comment: 503.2 Performed By: #### L 100.0500, L500.2500, L500.4100, L501.9985 ####[facility] [address] [place], [address] RBC (Bld) [#/Vol] 2.97 10*6/uL Low 4.2-5.4 [facility] Comment on above: Order Comment: 503.2 Performed By: #### L 100.0500, L500.2500, L500.4100, L501.9985 ####[facility] [address] [place], [address] RDW SD 45.1 fl High 35.1-43.9 [facility] Comment on above: Order Comment: 503.2 Performed By: #### L 100.0500, L500.2500, L500.4100, L501.9985 ####[facility] [address] [place], [address] WBC (Bld) [#/Vol] 5.4 10*3/uL Normal 4.4-11.0 [facility] Comment on above: Order Comment: 503.2 Performed By: #### L 100.0500, L500.2500, L500.4100, L501.9985 ####[facility] [address] [place], [address] Carbon dioxide measurementOr dered By: Dominic Lim on 03-28-2024 CO2 [Moles/Vol] 28.0 mmol/L 21.0-32.0 [facility] Chloride measurementOrdered By: Dominic Lim on 03-28-2024 Chloride [Moles/Vol] 104 mmol/L 98-107 [facility] Emergency Department Summary on 03-28-2024 Emergency Department Summary Normal [facility] Erythrocyte distribution wid th ratioOrdered By: Dominic Lim on 03-28-2024 Erythrocyte distribution width (RBC) [Ratio] 15.9 % High 11.6-14.6 [facility] Erythrocyte distribution wid th standard deviationOrdered By: Dominic Lim on 03-28-2024 Erythrocyte distribution width (RBC) [Entitic vol] 45.1 fL High 35.1-43.9 [facility] Estimated glomerular filtrat ion rate (GFR) AmericanOrdered By: Dominic Lim on 03-28-2024 Estimated GFR (MDRD) Amer 63 mL/min >60 [facility] Comment on above: GFR Calc Glomerular filtration rate ( GFR) estimationOrdered By: Dominic Lim on 03-28-2024 Estimated GFR (MDRD) Non-Af Amer 52 mL/min Low >60 [facility] Comment on above: Non- GFR Calc Glucose measurementOrdered B y: Dominic Lim on 03-28-2024 Glucose [Mass/Vol] 112 mg/dL High 74-106 [facility] Comment on above: Fasting Glucose resu lt from 100 to 125 mg/dL suggests IMPAIRED HOMEOSTASIS per A.D.A. criteria. HH, Hemoglobin AND Hematocri ton 03-28-2024 Hematocrit (Bld) [Volume fraction] 23.3 % Low [address] [place] [address] Comment on above: Performed By: #### L 100.0600 ####[facility] [address] [place], [address] Hemoglobin (Bld) [Mass/Vol] 7.1 g/dL Low 12.0-15.0 [facility] Comment on above: Performed By: #### L 100.0600 ####[facility] [address] [place], [address] Hematocrit (Bld) [Volume fraction] 25.0 % Low [address] [place] [address] Comment on above: Performed By: #### L 100.0600, BTS, M100.7900 ####[facility] [address] [place], [place], [address] Hemoglobin (Bld) [Mass/Vol] 7.7 g/dL Low 12.0-15.0 [facility] Comment on above: Performed By: #### L 100.0600, BTS, M100.7900 ####[facility] [address] [place], [address] Hematocrit Auto (Bld) [Volum e fraction]Ordered By: Sujatha Hebert on 03-28-2024 Hematocrit (Bld) [Volume fraction] 23.3 % Low [address] [place] [address] Hematocrit Auto (Bld) [Volum e fraction]Ordered By: Dominic Lim on 03-28-2024 Hematocrit (Bld) [Volume fraction] 23.3 % Low [address] [place] [address] Hemoglobin A1con 03-28-2024 HbA1c (Bld) [Mass fraction] 5.6 % Normal 3.8-5.6 [facility] Comment on above: Order Comment: 503.2 Result Comment: Norm al < 5.7 % Prediabetic 5.7 - 6.4 % Diabetic >or= 6.5 % Please note range changes. Performed By: #### L 100.0500, L500.2500, L500.4100, L501.9985 ####[facility] [address] [place], [address] Hemoglobin A1c percentageOrd ered By: Dominic Lim on 03-28-2024 HbA1c (Bld) [Mass fraction] 5.6 % 3.8-5.6 [facility] Comment on above: Normal < 5.7 % Predi abetic 5.7 - 6.4 % Diabetic >or= 6.5 % Please note range changes. Hemoglobin measurementOrdere d By: Sujatha Hebert on 03-28-2024 Hemoglobin (Bld) [Mass/Vol] 7.1 g/dL Low 12.0-15.0 [facility] Hemoglobin measurementOrdere d By: Dominic Lim on 03-28-2024 Hemoglobin (Bld) [Mass/Vol] 6.9 g/dL Low 12.0-15.0 [facility] High density lipoprotein (HD L) measurementOrdered By: Dominic Lim on 03-28-2024 Cholesterol in HDL [Mass/Vol] 58 mg/dL >40 [facility] Comment on above: The drugs N-Acetylcy steine and Metamizole may falsely depress this assay. Reference Range HDL <40 mg/dL Low HDL Cholesterol HDL >or= 60 mg/dL High HDL Cholesterol L501.4020on 03-28-2024 TROPONIN-I HS 14 pg/mL Normal 3.0-54.0 [facility] Comment on above: Order Comment: 'TROP ' Serial specimen #1, #2 or #3: 1 Result Comment: Plea se Note: New Test Units and Gender Specific Reference Ranges. For more information see Policy Stat Procedure [place] High Sensitivity Troponin (TNIH) and attachments. Performed By: #### L 501.4020, L501.2450, L500.3400 ####[facility] [address] [place], [place], [id number] Laboratory - Chemistry and C hemistry - challengeOrdered By: Sujatha Hebert on 03-28-2024 AST [Catalytic activity/Vol] 14 U/L Low 15-37 [facility] Lipaseon 03-28-2024 Lipase [Catalytic activity/Vol] 18 U/L Normal - [facility] Comment on above: Order Comment: 'TROP ' Serial specimen #1, #2 or #3: 1 Result Comment: Kalli torres note:LIPASE revised reference range effective 22.New Lipase methodology. Expected to produce lower valuesthan the previous assay method.NEW Reference Range: 13 - 75 U/L Performed By: #### L 501.4020, L501.2450, L500.3400 ####[facility] [address] [place], [address] Lipase measurementOrdered By : Sujatha Hebert on 03-28-2024 Lipase [Catalytic activity/Vol] 18 U/L [facility] Comment on above: Please note:LIPASE r evised reference range effective 22. New Lipase methodology. Expected to produce lower values than the previous assay method. NEW Reference Range: 13 - 75 U/L Lipid Profileon 03-28-2024 Cholesterol [Mass/Vol] 140 mg/dL Normal 200 [facility] Comment on above: Order Comment: 503.2 Result Comment: <200 mg/dL Desirable 200-240 mg/dL Borderline >240 mg/dL High Risk Performed By: #### L 100.0500, L500.2500, L500.4100, L501.9985 ####[facility] [address] [place], [address] Cholesterol in HDL [Mass/Vol] 58 mg/dL Normal [facility] Comment on above: Order Comment: 503.2 Result Comment: The drugs N-Acetylcysteine and Metamizole may falselydepress this assay. Reference Range HDL <40 mg/dL Low HDL Cholesterol HDL >or= 60 mg/dL High HDL Cholesterol Performed By: #### L 100.0500, L500.2500, L500.4100, L501.9985 ####[facility] [address] [place], [address] Cholesterol in LDL [Mass/Vol] 62 mg/dL Normal 0-130 [facility] Comment on above: Order Comment: 503.2 Performed By: #### L 100.0500, L500.2500, L500.4100, L501.9985 ####[facility] [address] [place], [address] Cholesterol in VLDL [Mass/Vol] 20 mg/dL Normal 5-40 [facility] Comment on above: Order Comment: 503.2 Performed By: #### L 100.0500, L500.2500, L500.4100, L501.9985 ####[facility] [address] [place], [address] Triglyceride [Mass/Vol] 98 mg/dL Normal [facility] Comment on above: Order Comment: 503.2 Result Comment: The drugs N-Acetylcysteine and Metamizole may falselydepress this assay.Serum Triglycerides Reference Interval Normal <150 mg/dL Borderline high 150 - 199 mg/dL High 200 - 499 mg/dL Very High > or = 500 mg/dL Performed By: #### L 100.0500, L500.2500, L500.4100, L501.9985 ####[facility] [address] [place], [address] Liver Profileon 03-28-2024 Albumin [Mass/Vol] 2.4 g/dL Low 3.2-5.0 [facility] Comment on above: Order Comment: 'TROP ' Serial specimen #1, #2 or #3: 1 Performed By: #### L 501.4020, L501.2450, L500.3400 ####[facility] [address] [place], [address] ALK P 126 U/L High 45-117 [facility] Comment on above: Order Comment: 'TROP ' Serial specimen #1, #2 or #3: 1 Performed By: #### L 501.4020, L501.2450, L500.3400 ####[facility] [address] [place], [address] ALT [Catalytic activity/Vol] 13 U/L Normal 13-56 [facility] Comment on above: Order Comment: 'TROP ' Serial specimen #1, #2 or #3: 1 Performed By: #### L 501.4020, L501.2450, L500.3400 ####[facility] [address] [place], [address] AST [Catalytic activity/Vol] 14 U/L Low 15-37 [facility] Comment on above: Order Comment: 'TROP ' Serial specimen #1, #2 or #3: 1 Performed By: #### L 501.4020, L501.2450, L500.3400 ####[facility] [address] [place], [address] Bilirubin [Mass/Vol] 0.20 mg/dL Normal 0.20-1.00 [facility] Comment on above: Order Comment: 'TROP ' Serial specimen #1, #2 or #3: 1 Result Comment: For patients on eltrombopag therapy, use of Dimension [place] TBIL is not recommended. Performed By: #### L 501.4020, L501.2450, L500.3400 ####[facility] [address] [place], [address] Bilirubin.direct [Mass/Vol] 0.12 mg/dL Normal 0.00-0.30 [facility] Comment on above: Order Comment: 'TROP ' Serial specimen #1, #2 or #3: 1 Performed By: #### L 501.4020, L501.2450, L500.3400 ####[facility] [address] [place], [address] Globulin (S) [Mass/Vol] 3.5 g/dL Normal 2.2-4.2 [facility] Comment on above: Order Comment: 'TROP ' Serial specimen #1, #2 or #3: 1 Performed By: #### L 501.4020, L501.2450, L500.3400 ####[facility] [address] [place], [place], [address] T PROT 5.9 g/dL Low 6.4-8.2 [facility] Comment on above: Order Comment: 'TROP ' Serial specimen #1, #2 or #3: 1 Performed By: #### L 501.4020, L501.2450, L500.3400 ####[facility] [address] [place], [address] Low density lipoprotein (LDL ) cholesterol measurementOrdered By: Dominic Lim on 03-28-2024 Cholesterol in LDL [Mass/Vol] 62 mg/dL 0-130 [facility] Lower GI hemoglobin IA Ql (S tl)Ordered By: Sujatha Hebert on 03-28-2024 Stool Occult Blood (MOOSE) Positive Abnormal [facility] Stool Occult Blood (MOOSE) Positive Abnormal [facility] MCV (mean corpuscular volume ) determinationOrdered By: Dominic Lim on 03-28-2024 MCV (RBC) [Entitic vol] 78.5 fL Low 81-99 [facility] Mean corpuscular hemoglobin (MCH) determinationOrdered By: Dominic Lim on 03-28-2024 MCH (RBC) [Entitic mass] 23.2 pg Low 27.0-32.0 [facility] Mean corpuscular hemoglobin concentration (MCHC) determinationOrdered By: Dominic Lim on 03-28-2024 MCHC (RBC) [Mass/Vol] 29.6 g/dL Low 32-36 [facility] Mean platelet volume determi nationOrdered By: Dominic Lim on 03-28-2024 Platelet mean volume (Bld) [Entitic vol] 9.7 fL 6.2-12.0 [facility] Platelet countOrdered By: Fidelia ul Carina on 03-28-2024 Platelets (Bld) [#/Vol] 172 10*3/uL 150-450 [facility] Potassium measurementOrdered By: Dominic Lim on 03-28-2024 Potassium [Moles/Vol] 3.9 mmol/L 3.5-5.1 [facility] RBC Auto (Bld) [#/Vol]Ordere d By: Dominic Lim on 03-28-2024 RBC (Bld) [#/Vol] 2.97 10*6/uL Low 4.2-5.4 [facility] Serum anion gap measurementO rdered By: Dominic Lim on 03-28-2024 Anion gap [Moles/Vol] 5 mmol/L 5-15 [facility] Serum globulin measurementOr dered By: Sujatha Hebert on 03-28-2024 Globulin (S) [Mass/Vol] 3.5 g/dL 2.2-4.2 [facility] Serum or plasma alanine sousa otransferase (ALT) measurementOrdered By: Sujatha Hebert on 03-28-2024 ALT [Catalytic activity/Vol] 13 U/L 13-56 [facility] Serum or plasma albumin kay urement (mass/volume)Ordered By: Sujatha Hebert on 03-28-2024 Albumin [Mass/Vol] 2.4 g/dL Low 3.2-5.0 [facility] Serum or plasma alkaline radha sphatase measurementOrdered By: Sujatha Hebert on 03-28-2024 ALP [Catalytic activity/Vol] 126 U/L High 45-117 [facility] Serum or plasma calcium kay urement (mass/volume)Ordered By: Dominic Lim on 03-28-2024 Calcium [Mass/Vol] 8.8 mg/dL 8.5-10.1 [facility] Serum or plasma cholesterol measurement (mass/volume)Ordered By: Dominic Lim on 03-28-2024 Cholesterol [Mass/Vol] 140 mg/dL <200 [facility] Comment on above: <200 mg/dL Desirable 200-240 mg/dL Borderline >240 mg/dL High Risk Serum or plasma creatinine m easurement (mass/volume)Ordered By: Dominic Lim on 03-28-2024 Creatinine [Mass/Vol] 1.09 mg/dL High 0.55-1.02 [facility] Comment on above: The validity of the calculated GFR & GFRAA in patients over 70 years has not been determined. Clinical correlation is essential. Serum or plasma urea nitroge n measurement (mass/volume)Ordered By: Dominic Lim on 03-28-2024 Urea nitrogen [Mass/Vol] 22 mg/dL High 7-18 [facility] Sodium levelOrdered By: Dominic Lim on 03-28-2024 Sodium [Moles/Vol] 136 mmol/L 136-145 [facility] Stool Occult Blood iFOBon STOB Positive Normal [facility] Comment on above: Performed By: #### L 100.0600, BTS, M100.7900 ####[facility] [address] [place], [place], [id number] Total proteinOrdered By: Emanuel Hebert on 03-28-2024 Protein [Mass/Vol] 5.9 g/dL Low 6.4-8.2 [facility] Triglycerides measurementOrd ered By: Dominic Lim on 03-28-2024 Triglyceride [Mass/Vol] 98 mg/dL <199 [facility] Comment on above: The drugs N-Acetylcy steine and Metamizole may falsely depress this assay.Serum Triglycerides Reference Interval Normal <150 mg/dL Borderline high 150 - 199 mg/dL High 200 - 499 mg/dL Very High > or = 500 mg/dL Troponin IOrdered By: Rica Hebert on 03-28-2024 Troponin I High Sensitivity 14 pg/mL 3.0-54.0 [facility] Comment on above: Please Note: New [place] t Units and Gender Specific Reference Ranges. For more information see Policy Stat Procedure [place] High Sensitivity Troponin (TNIH) and attachments. Type AND Screenon 03-28-2024 ABO and Rh group Nom (Bld) Blood group O Rh(D) positive Normal [facility] Comment on above: Order Comment: A Performed By: #### L 100.0600, BTS, M100.7900 ####[facility] [address] [place], [place], [id number] Very low density lipoprotein (VLDL) cholesterol measurementOrdered By: Dominic Lim on 03-28-2024 VLDL Cholesterol 20 mg/dL 5-40 [facility] White blood cell (WBC) count Ordered By: Dominic Lim on 03-28-2024 WBC (Bld) [#/Vol] 5.4 10*3/uL 4.4-11.0 [facility] Basic Metabolic Profile (BMP )on 02-27-2024 BUN/CRE 21.2 RATIO High -20 [facility] Comment on above: Order Comment: 503.2 Performed By: #### L 100.0500, L500.2500 ####[facility] [address] [place], [address] CA,Total 8.6 mg/dL Normal 8.5-10.1 [facility] Comment on above: Order Comment: 503.2 Performed By: #### L 100.0500, L500.2500 ####[facility] [address] [place], [address] Chloride [Moles/Vol] 104 mmol/L Normal 98-107 [facility] Comment on above: Order Comment: 503.2 Performed By: #### L 100.0500, L500.2500 ####[facility] [address] [place], [address] CO2 [Moles/Vol] 28.0 mmol/L Normal 21.0-32.0 [facility] Comment on above: Order Comment: 503.2 Performed By: #### L 100.0500, L500.2500 ####[facility] [address] [place], [address] Creatinine [Mass/Vol] 1.13 mg/dL High 0.55-1.02 [facility] Comment on above: Order Comment: 503.2 Result Comment: The validity of the calculated GFR GFRAA in patients over70 years has not been determined. Clinical correlation isessential. Performed By: #### L 100.0500, L500.2500 ####[facility] [address] [place], [address] EST GFR - AA 60 mL/min Normal >60 [facility] Comment on above: Order Comment: 503.2 Result Comment: Afri can [place]onese GFR Calc Performed By: #### L 100.0500, L500.2500 ####[facility] [address] [place], [address] GAP 7 Normal 5-15 [facility] Comment on above: Order Comment: 503.2 Performed By: #### L 100.0500, L500.2500 ####[facility] [address] [place], [address] GFR/1.73 sq M.predicted among non-blacks MDRD (S/P/Bld) [Vol rate/Area] 50 mL/min/{1.73_m2} Low >60 [facility] Comment on above: Order Comment: 503.2 Result Comment: Non- GFR Calc Performed By: #### L 100.0500, L500.2500 ####[facility] [address] [place], [address] Glucose [Mass/Vol] 106 mg/dL Normal 74-106 [facility] Comment on above: Order Comment: 503.2 Result Comment: Fast ing Glucose result from 100 to 125 mg/dLsuggests IMPAIRED HOMEOSTASIS per A.D.A. criteria. Performed By: #### L 100.0500, L500.2500 ####[facility] [address], [address] Potassium [Moles/Vol] 3.9 mmol/L Normal 3.5-5.1 [facility] Comment on above: Order Comment: 503.2 Performed By: #### L 100.0500, L500.2500 ####[facility] [address] [place], [address] Sodium [Moles/Vol] 139 mmol/L Normal 136-145 [facility] Comment on above: Order Comment: 503.2 Performed By: #### L 100.0500, L500.2500 ####[facility] [address] [place], [address] Urea nitrogen [Mass/Vol] 24 mg/dL High 7-18 [facility] Comment on above: Order Comment: 503.2 Performed By: #### L 100.0500, L500.2500 ####[facility] [address] [place], [address] Blood urea nitrogen (BUN)/cr eatinine ratioOrdered By: Dominic Lim on 02-27-2024 Urea nitrogen/Creatinine [Mass ratio] 21.2 mg/mg High 10-20 [facility] CBC-Complete Blood Cnt No Di ffon 02-27-2024 Erythrocyte distribution width (RBC) [Ratio] 15.6 % High 11.6-14.6 [facility] Comment on above: Order Comment: 503.2 Performed By: #### L 100.0500, L500.2500 ####[facility] [address] [place], [address] Hematocrit (Bld) [Volume fraction] 26.7 % Low 37-47 [facility] Comment on above: Order Comment: 503.2 Performed By: #### L 100.0500, L500.2500 ####[facility] [address] [place], [address] Hemoglobin (Bld) [Mass/Vol] 7.8 g/dL Low 12.0-15.0 [facility] Comment on above: Order Comment: 503.2 Performed By: #### L 100.0500, L500.2500 ####[facility] [address] [place], [address] MCH (RBC) [Entitic mass] 23.9 pg Low 27.0-32.0 [facility] Comment on above: Order Comment: 503.2 Performed By: #### L 100.0500, L500.2500 ####[facility] [address] [place], [address] MCHC (RBC) [Mass/Vol] 29.2 g/dL Low 32-36 [facility] Comment on above: Order Comment: 503.2 Performed By: #### L 100.0500, L500.2500 ####[facility] [address] [place], [address] MCV (RBC) [Entitic vol] 81.7 fL Normal 81-99 [facility] Comment on above: Order Comment: 503.2 Performed By: #### L 100.0500, L500.2500 ####[facility] [address] [place], [address] Platelet mean volume (Bld) [Entitic vol] 9.7 fL Normal 6.2-12.0 [facility] Comment on above: Order Comment: 503.2 Performed By: #### L 100.0500, L500.2500 ####[facility] [address] [place], [address] Platelets (Bld) [#/Vol] 196 10*3/uL Normal 150-450 [facility] Comment on above: Order Comment: 503.2 Performed By: #### L 100.0500, L500.2500 ####[facility] [address] [place], [address] RBC (Bld) [#/Vol] 3.27 10*6/uL Low 4.2-5.4 [facility] Comment on above: Order Comment: 503.2 Performed By: #### L 100.0500, L500.2500 ####[facility] [address] [place], [address] RDW SD 46.1 fl High 35.1-43.9 [facility] Comment on above: Order Comment: 503.2 Performed By: #### L 100.0500, L500.2500 ####[facility] [address] [place], [address] WBC (Bld) [#/Vol] 6.3 10*3/uL Normal 4.4-11.0 [facility] Comment on above: Order Comment: 503.2 Performed By: #### L 100.0500, L500.2500 ####[facility] [address] [place], [address] Carbon dioxide measurementOr dered By: Dominic Lim on 02-27-2024 CO2 [Moles/Vol] 28.0 mmol/L 21.0-32.0 [facility] Chloride measurementOrdered By: Dominic Lim on 02-27-2024 Chloride [Moles/Vol] 104 mmol/L 98-107 [facility] Erythrocyte distribution wid th ratioOrdered By: Dominic Lim on 02-27-2024 Erythrocyte distribution width (RBC) [Ratio] 15.6 % High 11.6-14.6 [facility] Erythrocyte distribution wid th standard deviationOrdered By: Dominic Lim on 02-27-2024 Erythrocyte distribution width (RBC) [Entitic vol] 46.1 fL High 35.1-43.9 [facility] Estimated glomerular filtrat ion rate (GFR) AmericanOrdered By: Dominic Lim on 02-27-2024 Estimated GFR (MDRD) Amer 60 mL/min >60 [facility] Comment on above: GFR Calc Glomerular filtration rate ( GFR) estimationOrdered By: Dominic Lim on 02-27-2024 Estimated GFR (MDRD) Non-Af Amer 50 mL/min Low >60 [facility] Comment on above: Non- GFR Calc Glucose measurementOrdered B y: Dominic Lim on 02-27-2024 Glucose [Mass/Vol] 106 mg/dL 74-106 [facility] Comment on above: Fasting Glucose resu lt from 100 to 125 mg/dL suggests IMPAIRED HOMEOSTASIS per A.D.A. criteria. Hematocrit Auto (Bld) [Volum e fraction]Ordered By: Dominic Lim on 02-27-2024 Hematocrit (Bld) [Volume fraction] 26.7 % Low 37-47 [facility] Hemoglobin measurementOrdere d By: Dominic Lim on 02-27-2024 Hemoglobin (Bld) [Mass/Vol] 7.8 g/dL Low 12.0-15.0 [facility] MCV (mean corpuscular volume ) determinationOrdered By: Dominic Lim on 02-27-2024 MCV (RBC) [Entitic vol] 81.7 fL 81-99 [facility] Mean corpuscular hemoglobin (MCH) determinationOrdered By: Dominic Lim on 02-27-2024 MCH (RBC) [Entitic mass] 23.9 pg Low 27.0-32.0 [facility] Mean corpuscular hemoglobin concentration (MCHC) determinationOrdered By: Dominic Lim on 02-27-2024 MCHC (RBC) [Mass/Vol] 29.2 g/dL Low 32-36 [facility] Mean platelet volume determi nationOrdered By: Dominic Lim on 02-27-2024 Platelet mean volume (Bld) [Entitic vol] 9.7 fL 6.2-12.0 [facility] Platelet countOrdered By: Fidelia Lim on 02-27-2024 Platelets (Bld) [#/Vol] 196 10*3/uL 150-450 [facility] Potassium measurementOrdered By: Dominic Lim on 02-27-2024 Potassium [Moles/Vol] 3.9 mmol/L 3.5-5.1 [facility] RBC Auto (Bld) [#/Vol]Ordere d By: Dominic Lim on 02-27-2024 RBC (Bld) [#/Vol] 3.27 10*6/uL Low 4.2-5.4 [facility] Serum anion gap measurementO rdered By: Dominic Lim on 02-27-2024 Anion gap [Moles/Vol] 7 mmol/L 5-15 [facility] Serum or plasma calcium kay urement (mass/volume)Ordered By: Dominic Lim on 02-27-2024 Calcium [Mass/Vol] 8.6 mg/dL 8.5-10.1 [facility] Serum or plasma creatinine m easurement (mass/volume)Ordered By: Dominic Lim on 02-27-2024 Creatinine [Mass/Vol] 1.13 mg/dL High 0.55-1.02 [facility] Comment on above: The validity of the calculated GFR & GFRAA in patients over 70 years has not been determined. Clinical correlation is essential. Serum or plasma urea nitroge n measurement (mass/volume)Ordered By: Dominic iLm on 02-27-2024 Urea nitrogen [Mass/Vol] 24 mg/dL High 7-18 [facility] Sodium levelOrdered By: Dominic Lim on 02-27-2024 Sodium [Moles/Vol] 139 mmol/L 136-145 [facility] White blood cell (WBC) count Ordered By: Dominic Lim on 02-27-2024 WBC (Bld) [#/Vol] 6.3 10*3/uL 4.4-11.0 [facility] Basic Metabolic Profile (BMP )on 01-29-2024 BUN/CRE 33.3 RATIO High 01-26 [facility] Comment on above: Performed By: #### L 500.2500 ####[facility] [address] [place], [address] CA,Total 8.1 mg/dL Low 8.5-10.1 [facility] Comment on above: Performed By: #### L 500.2500 ####[facility] [address] [place], [address] Chloride [Moles/Vol] 102 mmol/L Normal 98-107 [facility] Comment on above: Performed By: #### L 500.2500 ####[facility] [address] [place], [address] CO2 [Moles/Vol] 33.0 mmol/L High 21.0-32.0 [facility] Comment on above: Performed By: #### L 500.2500 ####[facility] [address] [place], [address] Creatinine [Mass/Vol] 1.05 mg/dL High 0.55-1.02 [facility] Comment on above: Result Comment: The validity of the calculated GFR GFRAA in patients over70 years has not been determined. Clinical correlation isessential. Performed By: #### L 500.2500 ####[facility] [address] [place], [address] EST GFR - AA 66 mL/min Normal >60 [facility] Comment on above: Result Comment: Afri can [place]onese GFR Calc Performed By: #### L 500.2500 ####[facility] [address] [place], [address] GAP 4 Low 5-15 [facility] Comment on above: Performed By: #### L 500.2500 ####[facility] [address] [place], [address] GFR/1.73 sq M.predicted among non-blacks MDRD (S/P/Bld) [Vol rate/Area] 54 mL/min/{1.73_m2} Low >60 [facility] Comment on above: Result Comment: Non- GFR Calc Performed By: #### L 500.2500 ####[facility] [address] [place], [address] Glucose [Mass/Vol] 101 mg/dL Normal 74-106 [facility] Comment on above: Result Comment: Fast ing Glucose result from 100 to 125 mg/dLsuggests IMPAIRED HOMEOSTASIS per A.D.A. criteria. Performed By: #### L 500.2500 ####[facility] [address] [place], [address] Potassium [Moles/Vol] 3.8 mmol/L Normal 3.5-5.1 [facility] Comment on above: Performed By: #### L 500.2500 ####[facility] [address] [place], [address] Sodium [Moles/Vol] 139 mmol/L Normal 136-145 [facility] Comment on above: Performed By: #### L 500.2500 ####[facility] [address] [place], [address] Urea nitrogen [Mass/Vol] 35 mg/dL High - [facility] Comment on above: Performed By: #### L 500.2500 ####[facility] [address] [place], [address] Basic Metabolic Profile (BMP )on 01-28-2024 BUN/CRE 30.8 RATIO High -20 [facility] Comment on above: Order Comment: 514.1 Performed By: #### L 101.9900, L100.0500, L500.2500, L501.8820 ####[facility] [address] [place], [address] CA,Total 8.3 mg/dL Low 8.5-10.1 [facility] Comment on above: Order Comment: 514.1 Performed By: #### L 101.9900, L100.0500, L500.2500, L501.8820 ####[facility] [address] [place], [address] Chloride [Moles/Vol] 101 mmol/L Normal 98-107 [facility] Comment on above: Order Comment: 514.1 Performed By: #### L 101.9900, L100.0500, L500.2500, L501.8820 ####[facility] [address] [place], [address] CO2 [Moles/Vol] 36.0 mmol/L High 21.0-32.0 [facility] Comment on above: Order Comment: 514.1 Performed By: #### L 101.9900, L100.0500, L500.2500, L501.8820 ####[facility] [address] [place], [address] Creatinine [Mass/Vol] 1.07 mg/dL High 0.55-1.02 [facility] Comment on above: Order Comment: 514.1 Result Comment: The validity of the calculated GFR GFRAA in patients over70 years has not been determined. Clinical correlation isessential. Performed By: #### L 101.9900, L100.0500, L500.2500, L501.8820 ####[facility] [address] [place], [address] EST GFR - AA 64 mL/min Normal >60 [facility] Comment on above: Order Comment: 514.1 Result Comment: Afri can Gabonese GFR Calc Performed By: #### L 101.9900, L100.0500, L500.2500, L501.8820 ####[facility] [address] [place], [address] GAP 2 Low 5-15 [facility] Comment on above: Order Comment: 514.1 Performed By: #### L 101.9900, L100.0500, L500.2500, L501.8820 ####[facility] [address] [place], [address] GFR/1.73 sq M.predicted among non-blacks MDRD (S/P/Bld) [Vol rate/Area] 53 mL/min/{1.73_m2} Low >60 [facility] Comment on above: Order Comment: 514.1 Result Comment: Non- GFR Calc Performed By: #### L 101.9900, L100.0500, L500.2500, L501.8820 ####[facility] [address] [place], [address] Glucose [Mass/Vol] 111 mg/dL High 74-106 [facility] Comment on above: Order Comment: 514.1 Result Comment: Fast ing Glucose result from 100 to 125 mg/dLsuggests IMPAIRED HOMEOSTASIS per A.D.A. criteria. Performed By: #### L 101.9900, L100.0500, L500.2500, L501.8820 ####[facility] [address] [place], [address] Potassium [Moles/Vol] 3.8 mmol/L Normal 3.5-5.1 [facility] Comment on above: Order Comment: 514.1 Performed By: #### L 101.9900, L100.0500, L500.2500, L501.8820 ####[facility] [address] [place], [address] Sodium [Moles/Vol] 139 mmol/L Normal 136-145 [facility] Comment on above: Order Comment: 514.1 Performed By: #### L 101.9900, L100.0500, L500.2500, L501.8820 ####[facility] [address] [place], [address] Urea nitrogen [Mass/Vol] 33 mg/dL High 7-18 [facility] Comment on above: Order Comment: 514.1 Performed By: #### L 101.9900, L100.0500, L500.2500, L501.8820 ####[facility] [address] [place], [address] CBC-Complete Blood Cnt No Di ffon 01-28-2024 Erythrocyte distribution width (RBC) [Ratio] 17.2 % High 11.6-14.6 [facility] Comment on above: Order Comment: 514.1 Performed By: #### L 101.9900, L100.0500, L500.2500, L501.8820 ####[facility] [address] [place], [address] Hematocrit (Bld) [Volume fraction] 27.9 % Low 37-47 [facility] Comment on above: Order Comment: 514.1 Performed By: #### L 101.9900, L100.0500, L500.2500, L501.8820 ####[facility] [address] [place], [address] Hemoglobin (Bld) [Mass/Vol] 8.4 g/dL Low 12.0-15.0 [facility] Comment on above: Order Comment: 514.1 Performed By: #### L 101.9900, L100.0500, L500.2500, L501.8820 ####[facility] [address] [place], [address] MCH (RBC) [Entitic mass] 25.5 pg Low 27.0-32.0 [facility] Comment on above: Order Comment: 514.1 Performed By: #### L 101.9900, L100.0500, L500.2500, L501.8820 ####[facility] [address] [place], [address] MCHC (RBC) [Mass/Vol] 30.1 g/dL Low 32-36 [facility] Comment on above: Order Comment: 514.1 Performed By: #### L 101.9900, L100.0500, L500.2500, L501.8820 ####[facility] [address] [place], [address] MCV (RBC) [Entitic vol] 84.8 fL Normal 81-99 [facility] Comment on above: Order Comment: 514.1 Performed By: #### L 101.9900, L100.0500, L500.2500, L501.8820 ####[facility] [address] [place], [address] Platelet mean volume (Bld) [Entitic vol] 9.2 fL Normal 6.2-12.0 [facility] Comment on above: Order Comment: 514.1 Performed By: #### L 101.9900, L100.0500, L500.2500, L501.8820 ####[facility] [address] [place], [address] Platelets (Bld) [#/Vol] 316 10*3/uL Normal 150-450 [facility] Comment on above: Order Comment: 514.1 Performed By: #### L 101.9900, L100.0500, L500.2500, L501.8820 ####[facility] [address] [place], [address] RBC (Bld) [#/Vol] 3.29 10*6/uL Low 4.2-5.4 [facility] Comment on above: Order Comment: 514.1 Performed By: #### L 101.9900, L100.0500, L500.2500, L501.8820 ####[facility] [address] [place], [address] RDW SD 53.3 fl High 35.1-43.9 [facility] Comment on above: Order Comment: 514.1 Performed By: #### L 101.9900, L100.0500, L500.2500, L501.8820 ####[facility] [address] [place], [address] WBC (Bld) [#/Vol] 9.4 10*3/uL Normal 4.4-11.0 [facility] Comment on above: Order Comment: 514.1 Performed By: #### L 101.9900, L100.0500, L500.2500, L501.8820 ####[facility] [address] [place], [address] Erythrocyte Sed Rateon - SED RATE 33 mm/hr High 0-30 [facility] Comment on above: Order Comment: 514.1 Performed By: #### L 101.9900, L100.0500, L500.2500, L501.8820 ####[facility] [address] [place], [address] Vancomycin, Trough Levelon 1 VANCO, TROUGH 4.1 ug/mL Low 5.0-15.0 [facility] Comment on above: Order Comment: 514.1 0500 Result Comment: VANC OMYCIN STANDARED DRUG THERAPY TROUGH LEVEL: 5.0 - 15.0 mg/LVANCOMYCIN HIGH INTENSITY THERAPY TROUGH LEVEL: 15.0 - 20.0 mg/LHigh Intensity therapy recommended for serious lifethreatening infections include:- Oqimnklfyb-Uiyqyaaeeemj-Ynrrbigty (Ventilator/Healtcare Associated)-SepsisPLEASE CONTACT PHARMACY SERVICES (#8482) FOR INTERPRETATIONOF RESULTS. Performed By: #### L 101.9900, L100.0500, L500.2500, L501.8820 ####[facility] [address] [place], [address] L5000.0010on 01-26-2024 BNP Normal [facility] Comment on above: Result Comment: TEST RESULTS LIMITSB-Type Natriuretic Peptide 443.4 High pg/mL 0.0-100.0 [employer] ADVIA Centaur XP methodology TESTING PERFORMED AT [facility]. ORIGINAL REPORT ON FILE IN LAB CONTAINS ADDITIONAL TEST SITE INFORMATION. Performed By: #### L 101.9900, L500.2500, L100.0500, L5000.0010 ####[facility] [address] [place], [address] Basic Metabolic Profile (BMP )on 01-21-2024 BUN/CRE 34.1 RATIO High 01-26 [facility] Comment on above: Order Comment: 514.1 Performed By: #### L 101.9900, L500.2500, L100.0500, L5000.0010 ####[facility] [address] [place], [address] CA,Total 8.0 mg/dL Low 8.5-10.1 [facility] Comment on above: Order Comment: 514.1 Performed By: #### L 101.9900, L500.2500, L100.0500, L5000.0010 ####[facility] [address] [place], [address] Chloride [Moles/Vol] 105 mmol/L Normal 98-107 [facility] Comment on above: Order Comment: 514.1 Performed By: #### L 101.9900, L500.2500, L100.0500, L5000.0010 ####[facility] [address] [place], [address] CO2 [Moles/Vol] 31.0 mmol/L Normal 21.0-32.0 [facility] Comment on above: Order Comment: 514.1 Performed By: #### L 101.9900, L500.2500, L100.0500, L5000.0010 ####[facility] [address] [place], [address] Creatinine [Mass/Vol] 1.00 mg/dL Normal 0.55-1.02 [facility] Comment on above: Order Comment: 514.1 Result Comment: The validity of the calculated GFR GFRAA in patients over70 years has not been determined. Clinical correlation isessential. Performed By: #### L 101.9900, L500.2500, L100.0500, L5000.0010 ####[facility] [address] [place], [address] EST GFR - AA 70 mL/min Normal >60 [facility] Comment on above: Order Comment: 514.1 Result Comment: Afri can Gabonese GFR Calc Performed By: #### L 101.9900, L500.2500, L100.0500, L5000.0010 ####[facility] [address] [place], [address] GAP 4 Low 5-15 [facility] Comment on above: Order Comment: 514.1 Performed By: #### L 101.9900, L500.2500, L100.0500, L5000.0010 ####[facility] [address] [place], [address] GFR/1.73 sq M.predicted among non-blacks MDRD (S/P/Bld) [Vol rate/Area] 58 mL/min/{1.73_m2} Low >60 [facility] Comment on above: Order Comment: 514.1 Result Comment: Non- GFR Calc Performed By: #### L 101.9900, L500.2500, L100.0500, L5000.0010 ####[facility] [address] [place], [address] Glucose [Mass/Vol] 98 mg/dL Normal 74-106 [facility] Comment on above: Order Comment: 514.1 Performed By: #### L 101.9900, L500.2500, L100.0500, L5000.0010 ####[facility] [address] [place], [address] Potassium [Moles/Vol] 4.4 mmol/L Normal 3.5-5.1 [facility] Comment on above: Order Comment: 514.1 Performed By: #### L 101.9900, L500.2500, L100.0500, L5000.0010 ####[facility] [address] [place], [address] Sodium [Moles/Vol] 140 mmol/L Normal 136-145 [facility] Comment on above: Order Comment: 514.1 Performed By: #### L 101.9900, L500.2500, L100.0500, L5000.0010 ####[facility] [address] [place], [address] Urea nitrogen [Mass/Vol] 34 mg/dL High 7-18 [facility] Comment on above: Order Comment: 514.1 Performed By: #### L 101.9900, L500.2500, L100.0500, L5000.0010 ####[facility] [address] [place], [address] CBC-Complete Blood Cnt No Di ffon 01-21-2024 Erythrocyte distribution width (RBC) [Ratio] 17.9 % High 11.6-14.6 [facility] Comment on above: Order Comment: 514.1 Performed By: #### L 101.9900, L500.2500, L100.0500, L5000.0010 ####[facility] [address] [place], [address] Hematocrit (Bld) [Volume fraction] 26.9 % Low 37-47 [facility] Comment on above: Order Comment: 514.1 Performed By: #### L 101.9900, L500.2500, L100.0500, L5000.0010 ####[facility] [address] [place], [address] Hemoglobin (Bld) [Mass/Vol] 8.1 g/dL Low 12.0-15.0 [facility] Comment on above: Order Comment: 514.1 Performed By: #### L 101.9900, L500.2500, L100.0500, L5000.0010 ####[facility] [address] [place], [address] MCH (RBC) [Entitic mass] 25.7 pg Low 27.0-32.0 [facility] Comment on above: Order Comment: 514.1 Performed By: #### L 101.9900, L500.2500, L100.0500, L5000.0010 ####[facility] [address] [place], [address] MCHC (RBC) [Mass/Vol] 30.1 g/dL Low 32-36 [facility] Comment on above: Order Comment: 514.1 Performed By: #### L 101.9900, L500.2500, L100.0500, L5000.0010 ####[facility] [address] [place], [address] MCV (RBC) [Entitic vol] 85.4 fL Normal 81-99 [facility] Comment on above: Order Comment: 514.1 Performed By: #### L 101.9900, L500.2500, L100.0500, L5000.0010 ####[facility] [address] [place], [address] Platelet mean volume (Bld) [Entitic vol] 9.9 fL Normal 6.2-12.0 [facility] Comment on above: Order Comment: 514.1 Performed By: #### L 101.9900, L500.2500, L100.0500, L5000.0010 ####[facility] [address] [place], [address] Platelets (Bld) [#/Vol] 180 10*3/uL Normal 150-450 [facility] Comment on above: Order Comment: 514.1 Performed By: #### L 101.9900, L500.2500, L100.0500, L5000.0010 ####[facility] [address] [place], [address] RBC (Bld) [#/Vol] 3.15 10*6/uL Low 4.2-5.4 [facility] Comment on above: Order Comment: 514.1 Performed By: #### L 101.9900, L500.2500, L100.0500, L5000.0010 ####[facility] [address] [place], [address] RDW SD 55.3 fl High 35.1-43.9 [facility] Comment on above: Order Comment: 514.1 Performed By: #### L 101.9900, L500.2500, L100.0500, L5000.0010 ####[facility] [address] [place], [address] WBC (Bld) [#/Vol] 9.5 10*3/uL Normal 4.4-11.0 [facility] Comment on above: Order Comment: 514.1 Performed By: #### L 101.9900, L500.2500, L100.0500, L5000.0010 ####[facility] [address] [place], [address] Erythrocyte Sed Rateon 01-20 SED RATE 21 mm/hr Normal 0-30 [facility] Comment on above: Order Comment: 514.1 Performed By: #### L 101.9900, L500.2500, L100.0500, L5000.0010 ####[facility] [address] [place], [address] CRPon 01-16-2024 C-REACTIVE PROT 91.00 mg/L High 0.0-3.0 [facility] Comment on above: Order Comment: 514-1 Result Comment: C-Re active Protein (CRP) provides useful information for thediagnosis, therapy and monitoring of inflammatory processesand associated diseases. For the evaluation of Relative Riskfor Cardiovascular Disease, a High Sensitivity CRP (HSCRP)should be ordered. Performed By: #### L 501.6710 ####[facility] [address] [place], [address] Basic Metabolic Profile (BMP )on 01-14-2024 BUN/CRE 29.6 RATIO High 10 [facility] Comment on above: Order Comment: 514-1 Performed By: #### L 101.9900, L500.2500, L501.8820, L100.0500 ####[facility] [address] [place], [address] CA,Total 7.4 mg/dL Low 8.5-10.1 [facility] Comment on above: Order Comment: 514-1 Performed By: #### L 101.9900, L500.2500, L501.8820, L100.0500 ####[facility] [address] [place], [address] Chloride [Moles/Vol] 105 mmol/L Normal 98-107 [facility] Comment on above: Order Comment: 514-1 Performed By: #### L 101.9900, L500.2500, L501.8820, L100.0500 ####[facility] [address] [place], [address] CO2 [Moles/Vol] 29.0 mmol/L Normal 21.0-32.0 [facility] Comment on above: Order Comment: 514-1 Performed By: #### L 101.9900, L500.2500, L501.8820, L100.0500 ####[facility] [address] [place], [address] Creatinine [Mass/Vol] 0.98 mg/dL Normal 0.55-1.02 [facility] Comment on above: Order Comment: 514- Result Comment: The validity of the calculated GFR GFRAA in patients over70 years has not been determined. Clinical correlation isessential. Performed By: #### L 101.9900, L500.2500, L501.8820, L100.0500 ####[facility] [address] [place], [address] EST GFR - AA 71 mL/min Normal >60 [facility] Comment on above: Order Comment: 514- Result Comment: Afri can Gabonese GFR Calc Performed By: #### L 101.9900, L500.2500, L501.8820, L100.0500 ####[facility] [address] [place], [address] GAP 9 Normal 5-15 [facility] Comment on above: Order Comment: 514-1 Performed By: #### L 101.9900, L500.2500, L501.8820, L100.0500 ####[facility] [address] [place], [address] GFR/1.73 sq M.predicted among non-blacks MDRD (S/P/Bld) [Vol rate/Area] 59 mL/min/{1.73_m2} Low >60 [facility] Comment on above: Order Comment: 514- Result Comment: Non- GFR Calc Performed By: #### L 101.9900, L500.2500, L501.8820, L100.0500 ####[facility] [address] [place], [address] Glucose [Mass/Vol] 74 mg/dL Normal 74-106 [facility] Comment on above: Order Comment: 514-1 Performed By: #### L 101.9900, L500.2500, L501.8820, L100.0500 ####[facility] [address] [place], [address] Potassium [Moles/Vol] 3.4 mmol/L Low 3.5-5.1 [facility] Comment on above: Order Comment: 514-1 Performed By: #### L 101.9900, L500.2500, L501.8820, L100.0500 ####[facility] [address] [place], [address] Sodium [Moles/Vol] 143 mmol/L Normal 136-145 [facility] Comment on above: Order Comment: 514-1 Performed By: #### L 101.9900, L500.2500, L501.8820, L100.0500 ####[facility] [address] [place], [address] Urea nitrogen [Mass/Vol] 29 mg/dL High 7-18 [facility] Comment on above: Order Comment: 514-1 Performed By: #### L 101.9900, L500.2500, L501.8820, L100.0500 ####[facility] [address] [place], [address] CBC-Complete Blood Cnt No Di ffon 01-14-2024 Erythrocyte distribution width (RBC) [Ratio] 17.5 % High 11.6-14.6 [facility] Comment on above: Order Comment: 514-1 Performed By: #### L 101.9900, L500.2500, L501.8820, L100.0500 ####[facility] [address] [place], [address] Hematocrit (Bld) [Volume fraction] 25.2 % Low 37-47 [facility] Comment on above: Order Comment: 514-1 Performed By: #### L 101.9900, L500.2500, L501.8820, L100.0500 ####[facility] [address] [place], [address] Hemoglobin (Bld) [Mass/Vol] 7.7 g/dL Low 12.0-15.0 [facility] Comment on above: Order Comment: 514-1 Performed By: #### L 101.9900, L500.2500, L501.8820, L100.0500 ####[facility] [address] [place], [address] MCH (RBC) [Entitic mass] 26.1 pg Low 27.0-32.0 [facility] Comment on above: Order Comment: 514-1 Performed By: #### L 101.9900, L500.2500, L501.8820, L100.0500 ####[facility] [address] [place], [address] MCHC (RBC) [Mass/Vol] 30.6 g/dL Low 32-36 [facility] Comment on above: Order Comment: 514-1 Performed By: #### L 101.9900, L500.2500, L501.8820, L100.0500 ####[facility] [address] [place], [address] MCV (RBC) [Entitic vol] 85.4 fL Normal 81-99 [facility] Comment on above: Order Comment: 514-1 Performed By: #### L 101.9900, L500.2500, L501.8820, L100.0500 ####[facility] [address] [place], [address] Platelet mean volume (Bld) [Entitic vol] 11.0 fL Normal 6.2-12.0 [facility] Comment on above: Order Comment: 514-1 Performed By: #### L 101.9900, L500.2500, L501.8820, L100.0500 ####[facility] [address] [place], [address] Platelets (Bld) [#/Vol] 162 10*3/uL Normal 150-450 [facility] Comment on above: Order Comment: 514-1 Performed By: #### L 101.9900, L500.2500, L501.8820, L100.0500 ####[facility] [address] [place], [address] RBC (Bld) [#/Vol] 2.95 10*6/uL Low 4.2-5.4 [facility] Comment on above: Order Comment: 514-1 Performed By: #### L 101.9900, L500.2500, L501.8820, L100.0500 ####[facility] [address] [place], [address] RDW SD 54.9 fl High 35.1-43.9 [facility] Comment on above: Order Comment: 514-1 Performed By: #### L 101.9900, L500.2500, L501.8820, L100.0500 ####[facility] [address] [place], [address] WBC (Bld) [#/Vol] 8.0 10*3/uL Normal 4.4-11.0 [facility] Comment on above: Order Comment: 514-1 Performed By: #### L 101.9900, L500.2500, L501.8820, L100.0500 ####[facility] [address] [place], [address] Erythrocyte Sed Rateon 01-13 SED RATE 12 mm/hr Normal 0-30 [facility] Comment on above: Order Comment: 514-1 Performed By: #### L 101.9900, L500.2500, L501.8820, L100.0500 ####[facility] [address] [place], [address] Vancomycin, Trough Levelon VANCO, TROUGH 30.8 ug/mL High 5.0-15.0 [facility] Comment on above: Order Comment: 0800 Result Comment: VANC OMYCIN STANDARED DRUG THERAPY TROUGH LEVEL: 5.0 - 15.0 mg/LVANCOMYCIN HIGH INTENSITY THERAPY TROUGH LEVEL: 15.0 - 20.0 mg/LHigh Intensity therapy recommended for serious lifethreatening infections include:- Cyihvmulws-Mltivmyperwq-Iwrtrdvvx (Ventilator/Healtcare Associated)-SepsisPLEASE CONTACT PHARMACY SERVICES (#4963) FOR INTERPRETATIONOF RESULTS. Performed By: #### L 101.9900, L500.2500, L501.8820, L100.0500 ####[facility] [address] [place], [address] Basic Metabolic Profile (BMP )on 01-09-2024 BUN/CRE 29.8 RATIO High 10-20 [facility] Comment on above: Order Comment: 105.1 Performed By: #### L 100.0500, L500.2500 ####[facility] [address] [place], [address] CA,Total 8.3 mg/dL Low 8.5-10.1 [facility] Comment on above: Order Comment: 105.1 Performed By: #### L 100.0500, L500.2500 ####[facility] [address] [place], [address] Chloride [Moles/Vol] 100 mmol/L Normal 98-107 [facility] Comment on above: Order Comment: 105.1 Performed By: #### L 100.0500, L500.2500 ####[facility] [id number] [place], [address] CO2 [Moles/Vol] 37.0 mmol/L High 21.0-32.0 [facility] Comment on above: Order Comment: 105.1 Performed By: #### L 100.0500, L500.2500 ####[facility] [id number] [place], [address] Creatinine [Mass/Vol] 1.24 mg/dL High 0.55-1.02 [facility] Comment on above: Order Comment: 105.1 Result Comment: The validity of the calculated GFR GFRAA in patients over70 years has not been determined. Clinical correlation isessential. Performed By: #### L 100.0500, L500.2500 ####[facility] [address] [place], [address] EST GFR - AA 54 mL/min Low >60 [facility] Comment on above: Order Comment: 105.1 Result Comment: Afri can [place] GFR Calc Performed By: #### L 100.0500, L500.2500 ####[facility] [address] [place], [address] GAP 4 Low 5-15 [facility] Comment on above: Order Comment: 105.1 Performed By: #### L 100.0500, L500.2500 ####[facility] [address] [place], [address] GFR/1.73 sq M.predicted among non-blacks MDRD (S/P/Bld) [Vol rate/Area] 45 mL/min/{1.73_m2} Low >60 [facility] Comment on above: Order Comment: 105.1 Result Comment: Non- GFR Calc Performed By: #### L 100.0500, L500.2500 ####[facility] [address] [place], [address] Glucose [Mass/Vol] 193 mg/dL High 74-106 [facility] Comment on above: Order Comment: 105.1 Result Comment: Fast ing Glucose result greater than or equal to 126 mg/dLsuggests DIABETES MELLITUS per A.D.A. criteria. Performed By: #### L 100.0500, L500.2500 ####[facility] [address] [place], [address] Potassium [Moles/Vol] 3.4 mmol/L Low 3.5-5.1 [facility] Comment on above: Order Comment: 105.1 Result Comment: Slig ht Hemolysis, Result may be falsely increased. Performed By: #### L 100.0500, L500.2500 ####[facility] [address] [place], [address] Sodium [Moles/Vol] 141 mmol/L Normal 136-145 [facility] Comment on above: Order Comment: 105.1 Performed By: #### L 100.0500, L500.2500 ####[facility] [address] [place], [address] Urea nitrogen [Mass/Vol] 37 mg/dL High 7-18 [facility] Comment on above: Order Comment: 105.1 Performed By: #### L 100.0500, L500.2500 ####[facility] [address] [place], [address] BUN Normal 7-18 [facility] Comment on above: Result Comment: Canc elled via OM: Order cancelled - Patient discharged Performed By: #### L 500.2500 ####[facility] [address] [place], [address] BUN/CRE Normal 10-20 [facility] Comment on above: Result Comment: Canc elled via OM: Order cancelled - Patient discharged Performed By: #### L 500.2500 ####[facility] [address] [place], [address] CA,Total Normal 8.5-10.1 [facility] Comment on above: Result Comment: Canc elled via OM: Order cancelled - Patient discharged Performed By: #### L 500.2500 ####[facility] [address] [place], [address] CL Normal 98-107 [facility] Comment on above: Result Comment: Canc elled via OM: Order cancelled - Patient discharged Performed By: #### L 500.2500 ####[facility] [address] [place], [address] CO2 Normal 21.0-32.0 [facility] Comment on above: Result Comment: Canc elled via OM: Order cancelled - Patient discharged Performed By: #### L 500.2500 ####[facility] [address] [place], [address] CREAT,SERUM Normal 0.55-1.02 [facility] Comment on above: Result Comment: Canc elled via OM: Order cancelled - Patient discharged Performed By: #### L 500.2500 ####[facility] [address] [place], [address] EST GFR Normal >60 [facility] Comment on above: Result Comment: Canc elled via OM: Order cancelled - Patient discharged Performed By: #### L 500.2500 ####[facility] [address] [place], [address] EST GFR - AA Normal >60 [facility] Comment on above: Result Comment: Canc elled via OM: Order cancelled - Patient discharged Performed By: #### L 500.2500 ####[facility] [address] [place], [address] GAP Normal 5-15 [facility] Comment on above: Result Comment: Canc elled via OM: Order cancelled - Patient discharged Performed By: #### L 500.2500 ####[facility] [address] [place], [address] GLU Normal 74-106 [facility] Comment on above: Result Comment: Canc elled via OM: Order cancelled - Patient discharged Performed By: #### L 500.2500 ####[facility] [address] [place], [address] Potassium Normal 3.5-5.1 [facility] Comment on above: Result Comment: Canc elled via OM: Order cancelled - Patient discharged Performed By: #### L 500.2500 ####[facility] [address] [place], [address] Basic Metabolic Profile (BMP) Normal 136-145 [facility] Comment on above: Result Comment: Canc elled via OM: Order cancelled - Patient discharged Performed By: #### L 500.2500 ####[facility] [address] [place], [address] CBC-Complete Blood Cnt No Di ffon 01-09-2024 Erythrocyte distribution width (RBC) [Ratio] 17.6 % High 11.6-14.6 [facility] Comment on above: Order Comment: 105.1 Performed By: #### L 100.0500, L500.2500 ####[facility] [address] [place], [address] Hematocrit (Bld) [Volume fraction] 32.6 % Low 37-47 [facility] Comment on above: Order Comment: 105.1 Performed By: #### L 100.0500, L500.2500 ####[facility] [address] [place], [address] Hemoglobin (Bld) [Mass/Vol] 9.7 g/dL Low 12.0-15.0 [facility] Comment on above: Order Comment: 105.1 Performed By: #### L 100.0500, L500.2500 ####[facility] [address] [place], [address] MCH (RBC) [Entitic mass] 25.7 pg Low 27.0-32.0 [facility] Comment on above: Order Comment: 105.1 Performed By: #### L 100.0500, L500.2500 ####[facility] [address] [place], [address] MCHC (RBC) [Mass/Vol] 29.8 g/dL Low 32-36 [facility] Comment on above: Order Comment: 105.1 Performed By: #### L 100.0500, L500.2500 ####[facility] [address] [place], [address] MCV (RBC) [Entitic vol] 86.2 fL Normal 81-99 [facility] Comment on above: Order Comment: 105.1 Performed By: #### L 100.0500, L500.2500 ####[facility] [address] [place], [address] Platelet mean volume (Bld) [Entitic vol] 10.5 fL Normal 6.2-12.0 [facility] Comment on above: Order Comment: 105.1 Performed By: #### L 100.0500, L500.2500 ####[facility] [address] [place], [address] Platelets (Bld) [#/Vol] 243 10*3/uL Normal 150-450 [facility] Comment on above: Order Comment: 105.1 Performed By: #### L 100.0500, L500.2500 ####[facility] [address] [place], [address] RBC (Bld) [#/Vol] 3.78 10*6/uL Low 4.2-5.4 [facility] Comment on above: Order Comment: 105.1 Performed By: #### L 100.0500, L500.2500 ####[facility] [address] [place], [address] RDW SD 54.8 fl High 35.1-43.9 [facility] Comment on above: Order Comment: 105.1 Performed By: #### L 100.0500, L500.2500 ####[facility] [address] [place], [address] WBC (Bld) [#/Vol] 15.9 10*3/uL High 4.4-11.0 [facility] Comment on above: Order Comment: 105.1 Performed By: #### L 100.0500, L500.2500 ####[facility] [address] [place], [address] Basic Metabolic Profile (BMP )on 01-08-2024 BUN/CRE 28.4 RATIO High 10-20 [facility] Comment on above: Performed By: #### L 500.2500 ####[facility] [address] [place], [address] CA,Total 8.2 mg/dL Low 8.5-10.1 [facility] Comment on above: Performed By: #### L 500.2500 ####[facility] [address] [place], [address] Chloride [Moles/Vol] 100 mmol/L Normal 98-107 [facility] Comment on above: Performed By: #### L 500.2500 ####[facility] [address] [place], [address] CO2 [Moles/Vol] 36.0 mmol/L High 21.0-32.0 [facility] Comment on above: Performed By: #### L 500.2500 ####[facility] [address] [place], [address] Creatinine [Mass/Vol] 1.34 mg/dL High 0.55-1.02 [facility] Comment on above: Result Comment: The validity of the calculated GFR GFRAA in patients over70 years has not been determined. Clinical correlation isessential. Performed By: #### L 500.2500 ####[facility] [address] [place], [address] ECRCL 49.74 ml/min Normal [facility] Comment on above: Performed By: #### L 500.2500 ####[facility] [address] [place], [place], [address] EST GFR - AA 50 mL/min Low >60 [facility] Comment on above: Result Comment: Afri can Gabonese GFR Calc Performed By: #### L 500.2500 ####[facility] [address] [place], [address] GAP 5 Normal 5-15 [facility] Comment on above: Performed By: #### L 500.2500 ####[facility] [address] [place], [address] GFR/1.73 sq M.predicted among non-blacks MDRD (S/P/Bld) [Vol rate/Area] 41 mL/min/{1.73_m2} Low >60 [facility] Comment on above: Result Comment: Non- GFR Calc Performed By: #### L 500.2500 ####[facility] [address] [place], [address] Glucose [Mass/Vol] 210 mg/dL High 74-106 [facility] Comment on above: Result Comment: Gluc ose result greater than or equal to 200 mg/dLsuggests DIABETES MELLITUS per A.D.A. criteria. Performed By: #### L 500.2500 ####[facility] [address] [place], [address] Potassium [Moles/Vol] 3.9 mmol/L Normal 3.5-5.1 [facility] Comment on above: Performed By: #### L 500.2500 ####[facility] [address] [place], [address] Sodium [Moles/Vol] 141 mmol/L Normal 136-145 [facility] Comment on above: Performed By: #### L 500.2500 ####[facility] [address] [place], [address] Urea nitrogen [Mass/Vol] 38 mg/dL High 7-18 [facility] Comment on above: Performed By: #### L 500.2500 ####[facility] [address] [place], [address] CXR for Line Placementon CXR for Line Placement Normal [facility] Chest 1 View (Portable)on Chest 1 View (Portable) Normal [facility] Basic Metabolic Profile (BMP )on 01-07-2024 BUN/CRE 27.8 RATIO High 10-20 [facility] Comment on above: Performed By: #### L 500.2500 ####[facility] [address] [place], [address] CA,Total 8.1 mg/dL Low 8.5-10.1 [facility] Comment on above: Performed By: #### L 500.2500 ####[facility] [address] [place], [address] Chloride [Moles/Vol] 101 mmol/L Normal 98-107 [facility] Comment on above: Performed By: #### L 500.2500 ####[facility] [address] [place], [address] CO2 [Moles/Vol] 34.0 mmol/L High 21.0-32.0 [facility] Comment on above: Performed By: #### L 500.2500 ####[facility] [address] [place], [address] Creatinine [Mass/Vol] 1.26 mg/dL High 0.55-1.02 [facility] Comment on above: Result Comment: The validity of the calculated GFR GFRAA in patients over70 years has not been determined. Clinical correlation isessential. Performed By: #### L 500.2500 ####[facility] [address] [place], [address] ECRCL 52.57 ml/min Normal [facility] Comment on above: Performed By: #### L 500.2500 ####[facility] [address] [place], [address] EST GFR - AA 53 mL/min Low >60 [facility] Comment on above: Result Comment: Afri can Gabonese GFR Calc Performed By: #### L 500.2500 ####[facility] [address] [place], [address] GAP 7 Normal 5-15 [facility] Comment on above: Performed By: #### L 500.2500 ####[facility] [address] [place], [address] GFR/1.73 sq M.predicted among non-blacks MDRD (S/P/Bld) [Vol rate/Area] 44 mL/min/{1.73_m2} Low >60 [facility] Comment on above: Result Comment: Non- GFR Calc Performed By: #### L 500.2500 ####[facility] [address] [place], [address] Glucose [Mass/Vol] 211 mg/dL High 74-106 [facility] Comment on above: Result Comment: Gluc ose result greater than or equal to 200 mg/dLsuggests DIABETES MELLITUS per A.D.A. criteria. Performed By: #### L 500.2500 ####[facility] [address] [place], [address] Potassium [Moles/Vol] 3.5 mmol/L Normal 3.5-5.1 [facility] Comment on above: Performed By: #### L 500.2500 ####[facility] [address] [place], [address] Sodium [Moles/Vol] 141 mmol/L Normal 136-145 [facility] Comment on above: Performed By: #### L 500.2500 ####[facility] [address] [place], [address] Urea nitrogen [Mass/Vol] 35 mg/dL High 7-18 [facility] Comment on above: Performed By: #### L 500.2500 ####[facility] [address] [place], [address] CDIFF (PCR)on 01-07-2024 CDIFF Normal [facility] Comment on above: Performed By: #### M 100.6796, M100.6795 ####[facility] [address] [place], [address] Clostridium Diff Toxin/Agon 01-07-2024 CDIFF (EIA) Normal [facility] Comment on above: Performed By: #### M 100.6796, M100.6795 ####[facility] [address] [place], [address] Culture, Blood (WB)on 2023 CUB No growth in 5 days. Normal [facility] Comment on above: Performed By: #### M 200.1000 ####[facility] [address] [place], [address] Vancomycin, Random Levelon 0 01-07-2024 VANCO, RANDOM 21.4 ug/mL High 0.0-15.0 [facility] Comment on above: Order Comment: Comme nts: Please draw with AM labs Result Comment: VANC OMYCIN STANDARD DRUG THERAPY: CRITICAL VALUE IS > 15.0 mg/LVANCOMYCIN HIGH INTENSITY THERAPY: CRITICAL VALUE IS > 20.0 mg/LPLEASE CONTACT PHARMACY SERVICES (#8776) FOR INTERPRETATIONOF RESULTS. THIS RESULT DOES NOT REPRESENT A PEAK OR TROUGHLEVEL FOR THIS DRUG. Performed By: #### L 501.8850 ####[facility] [address] [place], [address] Basic Metabolic Profile (BMP )on 01-06-2024 BUN/CRE 23.4 RATIO High 10-20 [facility] Comment on above: Performed By: #### L 500.2500 ####[facility] [address] [place], [address] CA,Total 8.2 mg/dL Low 8.5-10.1 [facility] Comment on above: Performed By: #### L 500.2500 ####[facility] [address] [place], [address] Chloride [Moles/Vol] 102 mmol/L Normal 98-107 [facility] Comment on above: Performed By: #### L 500.2500 ####[facility] [address] [place], [address] CO2 [Moles/Vol] 31.0 mmol/L Normal 21.0-32.0 [facility] Comment on above: Performed By: #### L 500.2500 ####[facility] [address] [place], [address] Creatinine [Mass/Vol] 1.24 mg/dL High 0.55-1.02 [facility] Comment on above: Result Comment: The validity of the calculated GFR GFRAA in patients over70 years has not been determined. Clinical correlation isessential. Performed By: #### L 500.2500 ####[facility] [address] [place], [address] ECRCL 53.36 ml/min Normal [facility] Comment on above: Performed By: #### L 500.2500 ####[facility] [address] [place], [address] EST GFR - AA 54 mL/min Low >60 [facility] Comment on above: Result Comment: Afri can Gabonese GFR Calc Performed By: #### L 500.2500 ####[facility] [address] [place], [address] GAP 7 Normal 5-15 [facility] Comment on above: Performed By: #### L 500.2500 ####[facility] [address] [place], [address] GFR/1.73 sq M.predicted among non-blacks MDRD (S/P/Bld) [Vol rate/Area] 45 mL/min/{1.73_m2} Low >60 [facility] Comment on above: Result Comment: Non- GFR Calc Performed By: #### L 500.2500 ####[facility] [address] [place], [address] Glucose [Mass/Vol] 282 mg/dL High 74-106 [facility] Comment on above: Result Comment: Gluc ose result greater than or equal to 200 mg/dLsuggests DIABETES MELLITUS per A.D.A. criteria. Performed By: #### L 500.2500 ####[facility] [address] [place], [address] Potassium [Moles/Vol] 3.1 mmol/L Low 3.5-5.1 [facility] Comment on above: Performed By: #### L 500.2500 ####[facility] [address] [place], [address] Sodium [Moles/Vol] 140 mmol/L Normal 136-145 [facility] Comment on above: Performed By: #### L 500.2500 ####[facility] [address] [place], [address] Urea nitrogen [Mass/Vol] 29 mg/dL High 7-18 [facility] Comment on above: Performed By: #### L 500.2500 ####[facility] [address] [place], [address] CBC-Complete Blood Cnt No Di ffon 01-05-2024 Erythrocyte distribution width (RBC) [Ratio] 17.7 % High 11.6-14.6 [facility] Comment on above: Result Comment: OVER LAPPING- CBCD ORDERED Performed By: #### L 500.4050, L100.0500 ####[facility] [address] [place], [address] Hematocrit (Bld) [Volume fraction] 30.5 % Low 37-47 [facility] Comment on above: Result Comment: OVER LAPPING- CBCD ORDERED Performed By: #### L 500.4050, L100.0500 ####[facility] [address] [place], [address] Hemoglobin (Bld) [Mass/Vol] 9.1 g/dL Low 12.0-15.0 [facility] Comment on above: Result Comment: OVER LAPPING- CBCD ORDERED Performed By: #### L 500.4050, L100.0500 ####[facility] [address] [place], [address] MCH (RBC) [Entitic mass] 25.3 pg Low 27.0-32.0 [facility] Comment on above: Result Comment: OVER LAPPING- CBCD ORDERED Performed By: #### L 500.4050, L100.0500 ####[facility] [address] [place], [address] MCHC (RBC) [Mass/Vol] 29.8 g/dL Low 32-36 [facility] Comment on above: Result Comment: OVER LAPPING- CBCD ORDERED Performed By: #### L 500.4050, L100.0500 ####[facility] [address] [place], [address] MCV (RBC) [Entitic vol] 85.0 fL Normal 81-99 [facility] Comment on above: Result Comment: OVER LAPPING- CBCD ORDERED Performed By: #### L 500.4050, L100.0500 ####[facility] [address] [place], [address] Platelet mean volume (Bld) [Entitic vol] 9.1 fL Normal 6.2-12.0 [facility] Comment on above: Performed By: #### L 500.4050, L100.0500 ####[facility] [address] [place], [address] Platelets (Bld) [#/Vol] 209 10*3/uL Normal 150-450 [facility] Comment on above: Result Comment: OVER LAPPING- CBCD ORDERED Performed By: #### L 500.4050, L100.0500 ####[facility] [address] [place], [address] RBC (Bld) [#/Vol] 3.59 10*6/uL Low 4.2-5.4 [facility] Comment on above: Result Comment: OVER LAPPING- CBCD ORDERED Performed By: #### L 500.4050, L100.0500 ####[facility] [address] [place], [address] RDW SD 55.3 fl High 35.1-43.9 [facility] Comment on above: Result Comment: OVER LAPPING- CBCD ORDERED Performed By: #### L 500.4050, L100.0500 ####[facility] [address] [place], [address] WBC (Bld) [#/Vol] 6.0 10*3/uL Normal 4.4-11.0 [facility] Comment on above: Result Comment: OVER LAPPING- CBCD ORDERED Performed By: #### L 500.4050, L100.0500 ####[facility] [address] [place], [address] [facility] 01-05-2024 Albumin [Mass/Vol] 1.8 g/dL Low 3.2-5.0 [facility] Comment on above: Performed By: #### L 500.4050, L100.0500 ####[facility] [address] [place], [address] Albumin/Globulin [Mass ratio] 0.7 {ratio} Low 0.9-2.4 [facility] Comment on above: Performed By: #### L 500.4050, L100.0500 ####[facility] [address] [place], [address] ALK P 139 U/L High 45-117 [facility] Comment on above: Performed By: #### L 500.4050, L100.0500 ####[facility] [address] [place], [address] ALT [Catalytic activity/Vol] 19 U/L Normal 13-56 [facility] Comment on above: Performed By: #### L 500.4050, L100.0500 ####[facility] [address] [place], [address] AST [Catalytic activity/Vol] 20 U/L Normal 15-37 [facility] Comment on above: Performed By: #### L 500.4050, L100.0500 ####[facility] [address] [place], [address] Bilirubin [Mass/Vol] 0.20 mg/dL Normal 0.20-1.00 [facility] Comment on above: Result Comment: For patients on eltrombopag therapy, use of Dimension [place] TBIL is not recommended. Performed By: #### L 500.4050, L100.0500 ####[facility] [address] [place], [address] BUN/CRE 22.7 RATIO High 10-20 [facility] Comment on above: Performed By: #### L 500.4050, L100.0500 ####[facility] [address] [place], [address] CA,Total 8.0 mg/dL Low 8.5-10.1 [facility] Comment on above: Performed By: #### L 500.4050, L100.0500 ####[facility] [address] [place], [address] Chloride [Moles/Vol] 106 mmol/L Normal 98-107 [facility] Comment on above: Performed By: #### L 500.4050, L100.0500 ####[facility] [address] [place], [address] CO2 [Moles/Vol] 28.0 mmol/L Normal 21.0-32.0 [facility] Comment on above: Performed By: #### L 500.4050, L100.0500 ####[facility] [address] [place], [address] Creatinine [Mass/Vol] 1.19 mg/dL High 0.55-1.02 [facility] Comment on above: Result Comment: The validity of the calculated GFR GFRAA in patients over70 years has not been determined. Clinical correlation isessential. Performed By: #### L 500.4050, L100.0500 ####[facility] [address] [place], [address] ECRCL 55.58 ml/min Normal [facility] Comment on above: Performed By: #### L 500.4050, L100.0500 ####[facility] [address] [place], [address] EST GFR - AA 57 mL/min Low >60 [facility] Comment on above: Result Comment: Afri can Gabonese GFR Calc Performed By: #### L 500.4050, L100.0500 ####[facility] [address] [place], [address] GAP 8 Normal 5-15 [facility] Comment on above: Performed By: #### L 500.4050, L100.0500 ####[facility] [address] [place], [address] GFR/1.73 sq M.predicted among non-blacks MDRD (S/P/Bld) [Vol rate/Area] 47 mL/min/{1.73_m2} Low >60 [facility] Comment on above: Result Comment: Non- GFR Calc Performed By: #### L 500.4050, L100.0500 ####[facility] [address] [place], [address] Globulin (S) [Mass/Vol] 2.7 g/dL Normal 2.2-4.2 [facility] Comment on above: Performed By: #### L 500.4050, L100.0500 ####[facility] [address] [place], [address] Glucose [Mass/Vol] 253 mg/dL High 74-106 [facility] Comment on above: Result Comment: Gluc ose result greater than or equal to 200 mg/dLsuggests DIABETES MELLITUS per A.D.A. criteria. Performed By: #### L 500.4050, L100.0500 ####[facility] [address] [place], [address] Potassium [Moles/Vol] 3.4 mmol/L Low 3.5-5.1 [facility] Comment on above: Performed By: #### L 500.4050, L100.0500 ####[facility] [address] [place], [address] Sodium [Moles/Vol] 142 mmol/L Normal 136-145 [facility] Comment on above: Performed By: #### L 500.4050, L100.0500 ####[facility] [address] [place], [address] T PROT 4.5 g/dL Low 6.4-8.2 [facility] Comment on above: Performed By: #### L 500.4050, L100.0500 ####[facility] [address] [place], [address] Urea nitrogen [Mass/Vol] 27 mg/dL High 7-18 [facility] Comment on above: Performed By: #### L 500.4050, L100.0500 ####[facility] [address] [place], [address] Vancomycin, Random Levelon 0 01-05-2024 VANCO, RANDOM 24.4 ug/mL High 0.0-15.0 [facility] Comment on above: Result Comment: VANC OMYCIN STANDARD DRUG THERAPY: CRITICAL VALUE IS > 15.0 mg/LVANCOMYCIN HIGH INTENSITY THERAPY: CRITICAL VALUE IS > 20.0 mg/LPLEASE CONTACT PHARMACY SERVICES (#6897) FOR INTERPRETATIONOF RESULTS. THIS RESULT DOES NOT REPRESENT A PEAK OR TROUGHLEVEL FOR THIS DRUG. Performed By: #### L 501.8850 ####[facility] [address] [place], [address] CBC W/Diff, Automatedon 09-2 Absolute Lymph 0.74 X10 3/uL Low 0.83-4.51 [facility] Comment on above: Performed By: #### L 100.0100 ####[facility] [address] [place], [address] Absolute Neut 4.8 X10 3/uL Normal 2.0-7.7 [facility] Comment on above: Performed By: #### L 100.0100 ####[facility] [address] [place], [address] Basophils/100 WBC (Bld) 0.2 % Normal 0-1 [facility] Comment on above: Performed By: #### L 100.0100 ####[facility] [address] [place], [address] Eosinophils/100 WBC (Bld) 0.0 % Normal 0-5 [facility] Comment on above: Performed By: #### L 100.0100 ####[facility] [address] [place], [address] Erythrocyte distribution width (RBC) [Ratio] 17.7 % High 11.6-14.6 [facility] Comment on above: Performed By: #### L 100.0100 ####[facility] [address] [place], [address] Hematocrit (Bld) [Volume fraction] 30.0 % Low 37-47 [facility] Comment on above: Performed By: #### L 100.0100 ####[facility] [address] [place], [address] Hemoglobin (Bld) [Mass/Vol] 9.0 g/dL Low 12.0-15.0 [facility] Comment on above: Performed By: #### L 100.0100 ####[facility] [address] [place], [address] IG% 1.000 High 0.0-0.9 [facility] Comment on above: Result Comment: IG% - Immature Granulocytes (promyelocytes, myelocytes andmetamyelocytes) > 1% indicates that a LEFT SHIFT is Present. Performed By: #### L 100.0100 ####[facility] [address] [place], [address] Lymphocytes/100 WBC (Bld) 12.9 % Low 19-41 [facility] Comment on above: Performed By: #### L 100.0100 ####[facility] [address] [place], [address] MCH (RBC) [Entitic mass] 25.3 pg Low 27.0-32.0 [facility] Comment on above: Performed By: #### L 100.0100 ####[facility] [address] [place], [address] MCHC (RBC) [Mass/Vol] 30.0 g/dL Low 32-36 [facility] Comment on above: Performed By: #### L 100.0100 ####[facility] [address] [place], [address] MCV (RBC) [Entitic vol] 84.3 fL Normal 81-99 [facility] Comment on above: Performed By: #### L 100.0100 ####[facility] [address] [place], [address] Monocytes/100 WBC (Bld) 2.4 % Normal 0-10 [facility] Comment on above: Performed By: #### L 100.0100 ####[facility] [address] [place], [address] Neutrophils/100 WBC (Bld) 83.5 % High 47-70 [facility] Comment on above: Performed By: #### L 100.0100 ####[facility] [address] [place], [address] Nucleated RBC (Bld) [#/Vol] 0 10*3/uL Normal 0-5 [facility] Comment on above: Performed By: #### L 100.0100 ####[facility] [address] [place], [address] Platelet mean volume (Bld) [Entitic vol] 9.4 fL Normal 6.2-12.0 [facility] Comment on above: Performed By: #### L 100.0100 ####[facility] [address] [place], [address] Platelets (Bld) [#/Vol] 219 10*3/uL Normal 150-450 [facility] Comment on above: Performed By: #### L 100.0100 ####[facility] [address] [place], [address] RBC (Bld) [#/Vol] 3.56 10*6/uL Low 4.2-5.4 [facility] Comment on above: Performed By: #### L 100.0100 ####[facility] [address] [place], [address] RDW SD 54.4 fl High 35.1-43.9 [facility] Comment on above: Performed By: #### L 100.0100 ####[facility] [address] [place], [address] WBC (Bld) [#/Vol] 5.8 10*3/uL Normal 4.4-11.0 [facility] Comment on above: Performed By: #### L 100.0100 ####[facility] [address] [place], [address] Comprehensive Metabolic Prof ilon 01-04-2024 Albumin [Mass/Vol] 1.7 g/dL Low 3.2-5.0 [facility] Comment on above: Performed By: #### L 500.4050 ####[facility] [address] [place], [address] Albumin/Globulin [Mass ratio] 0.6 {ratio} Low 0.9-2.4 [facility] Comment on above: Performed By: #### L 500.4050 ####[facility] [address] [place], [address] ALK P 130 U/L High 45-117 [facility] Comment on above: Performed By: #### L 500.4050 ####[facility] [address] [place], [address] ALT [Catalytic activity/Vol] 17 U/L Normal 13-56 [facility] Comment on above: Performed By: #### L 500.4050 ####[facility] [address] [place], [address] AST [Catalytic activity/Vol] 21 U/L Normal 15-37 [facility] Comment on above: Performed By: #### L 500.4050 ####[facility] [address] [place], [address] Bilirubin [Mass/Vol] 0.30 mg/dL Normal 0.20-1.00 [facility] Comment on above: Result Comment: For patients on eltrombopag therapy, use of Dimension [place] TBIL is not recommended. Performed By: #### L 500.4050 ####[facility] [address] [place], [address] BUN/CRE 24.8 RATIO High 10-20 [facility] Comment on above: Performed By: #### L 500.4050 ####[facility] [address] [place], [address] CA,Total 7.9 mg/dL Low 8.5-10.1 [facility] Comment on above: Performed By: #### L 500.4050 ####[facility] [address] [place], [address] Chloride [Moles/Vol] 105 mmol/L Normal 98-107 [facility] Comment on above: Performed By: #### L 500.4050 ####[facility] [address] [place], [address] CO2 [Moles/Vol] 29.0 mmol/L Normal 21.0-32.0 [facility] Comment on above: Performed By: #### L 500.4050 ####[facility] [address] [place], [address] Creatinine [Mass/Vol] 1.09 mg/dL High 0.55-1.02 [facility] Comment on above: Result Comment: The validity of the calculated GFR GFRAA in patients over70 years has not been determined. Clinical correlation isessential. Performed By: #### L 500.4050 ####[facility] [address] [place], [address] ECRCL 63.06 ml/min Normal [facility] Comment on above: Performed By: #### L 500.4050 ####[facility] [address] [place], [address] EST GFR - AA 63 mL/min Normal >60 [facility] Comment on above: Result Comment: Afri can Gabonese GFR Calc Performed By: #### L 500.4050 ####[facility] [address] [place], [address] GAP 6 Normal 5-15 [facility] Comment on above: Performed By: #### L 500.4050 ####[facility] [address] [place], [address] GFR/1.73 sq M.predicted among non-blacks MDRD (S/P/Bld) [Vol rate/Area] 52 mL/min/{1.73_m2} Low >60 [facility] Comment on above: Result Comment: Non- GFR Calc Performed By: #### L 500.4050 ####[facility] [address] [place], [address] Globulin (S) [Mass/Vol] 2.9 g/dL Normal 2.2-4.2 [facility] Comment on above: Performed By: #### L 500.4050 ####[facility] [address] [place], [address] Glucose [Mass/Vol] 233 mg/dL High 74-106 [facility] Comment on above: Result Comment: Gluc ose result greater than or equal to 200 mg/dLsuggests DIABETES MELLITUS per A.D.A. criteria. Performed By: #### L 500.4050 ####[facility] [address] [place], [address] Potassium [Moles/Vol] 3.3 mmol/L Low 3.5-5.1 [facility] Comment on above: Performed By: #### L 500.4050 ####[facility] [address] [place], [address] Sodium [Moles/Vol] 140 mmol/L Normal 136-145 [facility] Comment on above: Performed By: #### L 500.4050 ####[facility] [address] [place], [address] T PROT 4.6 g/dL Low 6.4-8.2 [facility] Comment on above: Performed By: #### L 500.4050 ####[facility] [address] [place], [address] Urea nitrogen [Mass/Vol] 27 mg/dL High 7-18 [facility] Comment on above: Performed By: #### L 500.4050 ####[facility] [address] [place], [address] Urine Cultureon 01-04-2024 URC Normal [facility] Comment on above: Performed By: #### L 400.0001, M100.2200, M100.678 ####[facility] [address] [place], [address] Vancomycin, Random Levelon 0 - VANCO, RANDOM 29.0 ug/mL High 0.0-15.0 [facility] Comment on above: Result Comment: VANC OMYCIN STANDARD DRUG THERAPY: CRITICAL VALUE IS > 15.0 mg/LVANCOMYCIN HIGH INTENSITY THERAPY: CRITICAL VALUE IS > 20.0 mg/LPLEASE CONTACT PHARMACY SERVICES (#4323) FOR INTERPRETATIONOF RESULTS. THIS RESULT DOES NOT REPRESENT A PEAK OR TROUGHLEVEL FOR THIS DRUG. Performed By: #### L 501.8850 ####[facility] [address] [place], [address] CBC W/Diff, Automatedon 12-09 Absolute Lymph 1.06 X10 3/uL Normal 0.83-4.51 [facility] Comment on above: Performed By: #### L 100.0100 ####[facility] [address] [place], [address] Absolute Neut 11.3 X10 3/uL High 2.0-7.7 [facility] Comment on above: Performed By: #### L 100.0100 ####[facility] [address] [place], [address] Basophils/100 WBC (Bld) 0.2 % Normal 0-1 [facility] Comment on above: Performed By: #### L 100.0100 ####[facility] [address] [place], [address] Eosinophils/100 WBC (Bld) 0.0 % Normal 0-5 [facility] Comment on above: Performed By: #### L 100.0100 ####[facility] [address] [place], [address] Erythrocyte distribution width (RBC) [Ratio] 18.1 % High 11.6-14.6 [facility] Comment on above: Performed By: #### L 100.0100 ####[facility] [address] [place], [address] Hematocrit (Bld) [Volume fraction] 33.7 % Low 37-47 [facility] Comment on above: Performed By: #### L 100.0100 ####[facility] [address] [place], [address] Hemoglobin (Bld) [Mass/Vol] 10.0 g/dL Low 12.0-15.0 [facility] Comment on above: Performed By: #### L 100.0100 ####[facility] [address] [place], [address] IG% 0.600 Normal 0.0-0.9 [facility] Comment on above: Result Comment: IG% - Immature Granulocytes (promyelocytes, myelocytes andmetamyelocytes) > 1% indicates that a LEFT SHIFT is Present. Performed By: #### L 100.0100 ####[facility] [address] [place], [address] Lymphocytes/100 WBC (Bld) 8.2 % Low 19-41 [facility] Comment on above: Performed By: #### L 100.0100 ####[facility] [address] [place], [address] MCH (RBC) [Entitic mass] 25.7 pg Low 27.0-32.0 [facility] Comment on above: Performed By: #### L 100.0100 ####[facility] [address] [place], [address] MCHC (RBC) [Mass/Vol] 29.7 g/dL Low 32-36 [facility] Comment on above: Performed By: #### L 100.0100 ####[facility] [address] [place], [address] MCV (RBC) [Entitic vol] 86.6 fL Normal 81-99 [facility] Comment on above: Performed By: #### L 100.0100 ####[facility] [address] [place], [address] Monocytes/100 WBC (Bld) 3.5 % Normal 0-10 [facility] Comment on above: Performed By: #### L 100.0100 ####[facility] [address] [place], [address] Neutrophils/100 WBC (Bld) 87.5 % High 47-70 [facility] Comment on above: Performed By: #### L 100.0100 ####[facility] [address] [place], [address] Nucleated RBC (Bld) [#/Vol] 0 10*3/uL Normal 0-5 [facility] Comment on above: Performed By: #### L 100.0100 ####[facility] [address] [place], [address] Platelet mean volume (Bld) [Entitic vol] 9.4 fL Normal 6.2-12.0 [facility] Comment on above: Performed By: #### L 100.0100 ####[facility] [address] [place], [address] Platelets (Bld) [#/Vol] 287 10*3/uL Normal 150-450 [facility] Comment on above: Performed By: #### L 100.0100 ####[facility] [address] [place], [address] RBC (Bld) [#/Vol] 3.89 10*6/uL Low 4.2-5.4 [facility] Comment on above: Performed By: #### L 100.0100 ####[facility] [address] [place], [address] RDW SD 57.3 fl High 35.1-43.9 [facility] Comment on above: Performed By: #### L 100.0100 ####[facility] [address] [place], [address] WBC (Bld) [#/Vol] 12.9 10*3/uL High 4.4-11.0 [facility] Comment on above: Performed By: #### L 100.0100 ####[facility] [address] [place], [address] Comprehensive Metabolic Prof ilon 01-03-2024 Albumin [Mass/Vol] 1.8 g/dL Low 3.2-5.0 [facility] Comment on above: Performed By: #### L 500.4050 ####[facility] [address] [place], [address] Albumin/Globulin [Mass ratio] 0.6 {ratio} Low 0.9-2.4 [facility] Comment on above: Performed By: #### L 500.4050 ####[facility] [address] [place], [address] ALK P 141 U/L High 45-117 [facility] Comment on above: Performed By: #### L 500.4050 ####[facility] [address] [place], [address] ALT [Catalytic activity/Vol] 18 U/L Normal 13-56 [facility] Comment on above: Performed By: #### L 500.4050 ####[facility] [address] [place], [address] AST [Catalytic activity/Vol] 27 U/L Normal 15-37 [facility] Comment on above: Performed By: #### L 500.4050 ####[facility] [address] [place], [address] Bilirubin [Mass/Vol] 0.30 mg/dL Normal 0.20-1.00 [facility] Comment on above: Result Comment: For patients on eltrombopag therapy, use of Dimension [place] TBIL is not recommended. Performed By: #### L 500.4050 ####[facility] [address] [place], [address] BUN/CRE 25.0 RATIO High 10-20 [facility] Comment on above: Performed By: #### L 500.4050 ####[facility] [address] [place], [address] CA,Total 7.9 mg/dL Low 8.5-10.1 [facility] Comment on above: Performed By: #### L 500.4050 ####[facility] [address] [place], [address] Chloride [Moles/Vol] 107 mmol/L Normal 98-107 [facility] Comment on above: Performed By: #### L 500.4050 ####[facility] [address] [place], [address] CO2 [Moles/Vol] 27.0 mmol/L Normal 21.0-32.0 [facility] Comment on above: Performed By: #### L 500.4050 ####[facility] [address] [place], [address] Creatinine [Mass/Vol] 1.04 mg/dL High 0.55-1.02 [facility] Comment on above: Result Comment: The validity of the calculated GFR GFRAA in patients over70 years has not been determined. Clinical correlation isessential. Performed By: #### L 500.4050 ####[facility] [address] [place], [address] ECRCL 64.35 ml/min Normal [facility] Comment on above: Performed By: #### L 500.4050 ####[facility] [address] [place], [address] EST GFR - AA 66 mL/min Normal >60 [facility] Comment on above: Result Comment: Afri can Gabonese GFR Calc Performed By: #### L 500.4050 ####[facility] [address] [place], [address] GAP 8 Normal 5-15 [facility] Comment on above: Performed By: #### L 500.4050 ####[facility] [address] [place], [address] GFR/1.73 sq M.predicted among non-blacks MDRD (S/P/Bld) [Vol rate/Area] 55 mL/min/{1.73_m2} Low >60 [facility] Comment on above: Result Comment: Non- GFR Calc Performed By: #### L 500.4050 ####[facility] [address] [place], [address] Globulin (S) [Mass/Vol] 3.0 g/dL Normal 2.2-4.2 [facility] Comment on above: Performed By: #### L 500.4050 ####[facility] [address] [place], [address] Glucose [Mass/Vol] 183 mg/dL High 74-106 [facility] Comment on above: Result Comment: Fast ing Glucose result greater than or equal to 126 mg/dLsuggests DIABETES MELLITUS per A.D.A. criteria. Performed By: #### L 500.4050 ####[facility] [address] [place], [address] Potassium [Moles/Vol] 3.8 mmol/L Normal 3.5-5.1 [facility] Comment on above: Performed By: #### L 500.4050 ####[facility] [address] [place], [address] Sodium [Moles/Vol] 142 mmol/L Normal 136-145 [facility] Comment on above: Performed By: #### L 500.4050 ####[facility] [address] [place], [address] T PROT 4.8 g/dL Low 6.4-8.2 [facility] Comment on above: Performed By: #### L 500.4050 ####[facility] [address] [place], [address] Urea nitrogen [Mass/Vol] 26 mg/dL High 7-18 [facility] Comment on above: Performed By: #### L 500.4050 ####[facility] [address] [place], [address] Culture, Blood (WB)on 2023 CUB Normal [facility] Comment on above: Performed By: #### M 200.1000 ####[facility] [address] [place], [address] Vancomycin, Random Levelon 0 01-03-2024 VANCO, RANDOM 34.5 ug/mL High 0.0-15.0 [facility] Comment on above: Result Comment: VANC OMYCIN STANDARD DRUG THERAPY: CRITICAL VALUE IS > 15.0 mg/LVANCOMYCIN HIGH INTENSITY THERAPY: CRITICAL VALUE IS > 20.0 mg/LPLEASE CONTACT PHARMACY SERVICES (#8865) FOR INTERPRETATIONOF RESULTS. THIS RESULT DOES NOT REPRESENT A PEAK OR TROUGHLEVEL FOR THIS DRUG. Performed By: #### L 501.8850 ####[facility] [address] [place], [address] Basic Metabolic Profile (BMP )on 01-02-2024 BUN Normal 7-18 [facility] Comment on above: Result Comment: @OK TO CANCEL PER C.LUCIA DUPLICATE ORDER Performed By: #### L 500.2500 ####[facility] [address] [place], [address] BUN/CRE Normal 10-20 [facility] Comment on above: Result Comment: @OK TO CANCEL PER C.LUCIA DUPLICATE ORDER Performed By: #### L 500.2500 ####[facility] [address] [place], [address] CA,Total Normal 8.5-10.1 [facility] Comment on above: Result Comment: @OK TO CANCEL PER C.LUCIA DUPLICATE ORDER Performed By: #### L 500.2500 ####[facility] [address] [place], [address] CL Normal 98-107 [facility] Comment on above: Result Comment: @OK TO CANCEL PER C.LUCIA DUPLICATE ORDER Performed By: #### L 500.2500 ####[facility] [address] [place], [address] CO2 Normal 21.0-32.0 [facility] Comment on above: Result Comment: @OK TO CANCEL PER C.LUCIA DUPLICATE ORDER Performed By: #### L 500.2500 ####[facility] [address] [place], [address] CREAT,SERUM Normal 0.55-1.02 [facility] Comment on above: Result Comment: @OK TO CANCEL PER C.LUCIA DUPLICATE ORDER Performed By: #### L 500.2500 ####[facility] [address] [place], [address] EST GFR Normal >60 [facility] Comment on above: Result Comment: @OK TO CANCEL PER C.LUCIA DUPLICATE ORDER Performed By: #### L 500.2500 ####[facility] [address] [place], [address] EST GFR - AA Normal >60 [facility] Comment on above: Result Comment: @OK TO CANCEL PER C.LUCIA DUPLICATE ORDER Performed By: #### L 500.2500 ####[facility] [address] [place], [address] GAP Normal 5-15 [facility] Comment on above: Result Comment: @OK TO CANCEL PER C.LUCIA DUPLICATE ORDER Performed By: #### L 500.2500 ####[facility] [address] [place], [address] GLU Normal 74-106 [facility] Comment on above: Result Comment: @OK TO CANCEL PER C.LUCIA DUPLICATE ORDER Performed By: #### L 500.2500 ####[facility] [address] [place], [address] Potassium Normal 3.5-5.1 [facility] Comment on above: Result Comment: @OK TO CANCEL PER C.LUCIA DUPLICATE ORDER Performed By: #### L 500.2500 ####[facility] [address] [place], [address] Basic Metabolic Profile (BMP) Normal 136-145 [facility] Comment on above: Result Comment: @OK TO CANCEL PER C.LUCIA DUPLICATE ORDER Performed By: #### L 500.2500 ####[facility] [address] [place], [address] BUN/CRE 35.1 RATIO High 10-20 [facility] Comment on above: Performed By: #### L 500.2500, L501.5200 ####[facility] [address] [place], [address] CA,Total 8.1 mg/dL Low 8.5-10.1 [facility] Comment on above: Performed By: #### L 500.2500, L501.5200 ####[facility] [address] [place], [address] Chloride [Moles/Vol] 108 mmol/L High 98-107 [facility] Comment on above: Performed By: #### L 500.2500, L501.5200 ####[facility] [facility] [address] [place], [address] CO2 [Moles/Vol] 29.0 mmol/L Normal 21.0-32.0 [facility] Comment on above: Performed By: #### L 500.2500, L501.5200 ####[facility] [address] [place], [address] Creatinine [Mass/Vol] 0.66 mg/dL Normal 0.55-1.02 [facility] Comment on above: Result Comment: The validity of the calculated GFR GFRAA in patients over70 years has not been determined. Clinical correlation isessential. Performed By: #### L 500.2500, L501.5200 ####[facility] [address] [place], [address] ECRCL 83.81 ml/min Normal [facility] Comment on above: Performed By: #### L 500.2500, L501.5200 ####[facility] [address] [place], [address] EST GFR - AA 113 mL/min Normal >60 [facility] Comment on above: Result Comment: Afri can Gabonese GFR Calc Performed By: #### L 500.2500, L501.5200 ####[facility] [address] [place], [address] GAP 6 Normal 5-15 [facility] Comment on above: Performed By: #### L 500.2500, L501.5200 ####[facility] [address] [place], [address] GFR/1.73 sq M.predicted among non-blacks MDRD (S/P/Bld) [Vol rate/Area] 93 mL/min/{1.73_m2} Normal >60 [facility] Comment on above: Result Comment: Non- GFR Calc Performed By: #### L 500.2500, L501.5200 ####[facility] [address] [place], [address] Glucose [Mass/Vol] 165 mg/dL High 74-106 [facility] Comment on above: Result Comment: Fast ing Glucose result greater than or equal to 126 mg/dLsuggests DIABETES MELLITUS per A.D.A. criteria. Performed By: #### L 500.2500, L501.5200 ####[facility] [address] [place], [address] Potassium [Moles/Vol] 4.0 mmol/L Normal 3.5-5.1 [facility] Comment on above: Performed By: #### L 500.2500, L501.5200 ####[facility] [address] [place], [address] Sodium [Moles/Vol] 143 mmol/L Normal 136-145 [facility] Comment on above: Performed By: #### L 500.2500, L501.5200 ####[facility] [address] [place], [address] Urea nitrogen [Mass/Vol] 23 mg/dL High 7-18 [facility] Comment on above: Performed By: #### L 500.2500, L501.5200 ####[facility] [address] [place], [address] Consultation - Infectious Dx on 01-02-2024 Consultation - Infectious Dx Normal [facility] Magnesiumon 01-02-2024 Magnesium [Mass/Vol] 1.7 mg/dL Normal 1.6-2.6 [facility] Comment on above: Performed By: #### L 500.2500, L501.5200 ####[facility] [address] [place], [address] Vancomycin, Trough Levelon 0 01-02-2024 VANCO, TROUGH 43.5 ug/mL High 5.0-15.0 [facility] Comment on above: Order Comment: Comme nts: Trough to be drawn 30 mins prior to scheduled [id number] Result Comment: VANC OMYCIN STANDARED DRUG THERAPY TROUGH LEVEL: 5.0 - 15.0 mg/LVANCOMYCIN HIGH INTENSITY THERAPY TROUGH LEVEL: 15.0 - 20.0 mg/LHigh Intensity therapy recommended for serious lifethreatening infections include:- Qohmoqrigq-Bqazqhgblfie-Yezczdbuv (Ventilator/Healtcare Associated)-SepsisPLEASE CONTACT PHARMACY SERVICES (#5861) FOR INTERPRETATIONOF RESULTS. Performed By: #### L 501.8802 ####[facility] [address] [place], [address] Alcohol, Blood (Medical)-Ser umon 01-01-2024 SERUM ETOH 5.0 mg/dL Normal [facility] Comment on above: Result Comment: The serum:whole blood ethanol ratio is approximately 1.14and varies slightly with hematocrit.Medical Alcohol reference interval and critical value innon-tolerant individuals; 50 - 100 Impairment 100 Intoxication 100 - 250 Severe Poisoning 250 - 400 Deep/possible fatal coma Performed By: #### L 501.9100, L505.5000, L506.0250 ####[facility] [address] [place], [address] CBC W/Diff, Automatedon 12-09 Absolute Lymph 0.64 X10 3/uL Low 0.83-4.51 [facility] Comment on above: Performed By: #### L 500.4050, L501.9520, L100.0100, L501.2300, L501.5200 ####[facility] [address] [place], [address] Absolute Neut 4.9 X10 3/uL Normal 2.0-7.7 [facility] Comment on above: Performed By: #### L 500.4050, L501.9520, L100.0100, L501.2300, L501.5200 ####[facility] [address] [place], [address] Basophils/100 WBC (Bld) 0.4 % Normal 0-1 [facility] Comment on above: Performed By: #### L 500.4050, L501.9520, L100.0100, L501.2300, L501.5200 ####[facility] [address] [place], [address] Eosinophils/100 WBC (Bld) 0.4 % Normal 0-5 [facility] Comment on above: Performed By: #### L 500.4050, L501.9520, L100.0100, L501.2300, L501.5200 ####[facility] [address] [place], [address] Erythrocyte distribution width (RBC) [Ratio] 17.4 % High 11.6-14.6 [facility] Comment on above: Performed By: #### L 500.4050, L501.9520, L100.0100, L501.2300, L501.5200 ####[facility] [address] [place], [address] Hematocrit (Bld) [Volume fraction] 31.3 % Low 37-47 [facility] Comment on above: Performed By: #### L 500.4050, L501.9520, L100.0100, L501.2300, L501.5200 ####[facility] [address] [place], [address] Hemoglobin (Bld) [Mass/Vol] 9.3 g/dL Low 12.0-15.0 [facility] Comment on above: Performed By: #### L 500.4050, L501.9520, L100.0100, L501.2300, L501.5200 ####[facility] [address] [place], [address] IG% 0.500 Normal 0.0-0.9 [facility] Comment on above: Result Comment: IG% - Immature Granulocytes (promyelocytes, myelocytes andmetamyelocytes) > 1% indicates that a LEFT SHIFT is Present. Performed By: #### L 500.4050, L501.9520, L100.0100, L501.2300, L501.5200 ####[facility] [address] [place], [address] Lymphocytes/100 WBC (Bld) 11.3 % Low 19-41 [facility] Comment on above: Performed By: #### L 500.4050, L501.9520, L100.0100, L501.2300, L501.5200 ####[facility] [address] [place], [address] MCH (RBC) [Entitic mass] 25.3 pg Low 27.0-32.0 [facility] Comment on above: Performed By: #### L 500.4050, L501.9520, L100.0100, L501.2300, L501.5200 ####[facility] [address] [place], [address] MCHC (RBC) [Mass/Vol] 29.7 g/dL Low 32-36 [facility] Comment on above: Performed By: #### L 500.4050, L501.9520, L100.0100, L501.2300, L501.5200 ####[facility] [address] [place], [address] MCV (RBC) [Entitic vol] 85.1 fL Normal 81-99 [facility] Comment on above: Performed By: #### L 500.4050, L501.9520, L100.0100, L501.2300, L501.5200 ####[facility] [address] [place], [address] Monocytes/100 WBC (Bld) 1.1 % Normal 0-10 [facility] Comment on above: Performed By: #### L 500.4050, L501.9520, L100.0100, L501.2300, L501.5200 ####[facility] [address] [place], [address] Neutrophils/100 WBC (Bld) 86.3 % High 47-70 [facility] Comment on above: Performed By: #### L 500.4050, L501.9520, L100.0100, L501.2300, L501.5200 ####[facility] [address] [place], [address] Nucleated RBC (Bld) [#/Vol] 0 10*3/uL Normal 0-5 [facility] Comment on above: Performed By: #### L 500.4050, L501.9520, L100.0100, L501.2300, L501.5200 ####[facility] [address] [place], [address] Platelet mean volume (Bld) [Entitic vol] 9.2 fL Normal 6.2-12.0 [facility] Comment on above: Performed By: #### L 500.4050, L501.9520, L100.0100, L501.2300, L501.5200 ####[facility] [address] [place], [address] Platelets (Bld) [#/Vol] 196 10*3/uL Normal 150-450 [facility] Comment on above: Performed By: #### L 500.4050, L501.9520, L100.0100, L501.2300, L501.5200 ####[facility] [address] [place], [address] RBC (Bld) [#/Vol] 3.68 10*6/uL Low 4.2-5.4 [facility] Comment on above: Performed By: #### L 500.4050, L501.9520, L100.0100, L501.2300, L501.5200 ####[facility] [address] [place], [address] RDW SD 54.6 fl High 35.1-43.9 [facility] Comment on above: Performed By: #### L 500.4050, L501.9520, L100.0100, L501.2300, L501.5200 ####[facility] [address] [place], [address] WBC (Bld) [#/Vol] 5.7 10*3/uL Normal 4.4-11.0 [facility] Comment on above: Performed By: #### L 500.4050, L501.9520, L100.0100, L501.2300, L501.5200 ####[facility] [address] [place], [address] Chest 1 View (Portable)on Chest 1 View (Portable) Normal [facility] Comprehensive Metabolic Prof ilon 01-01-2024 Albumin [Mass/Vol] 1.4 g/dL Low 3.2-5.0 [facility] Comment on above: Performed By: #### L 500.4050, L501.9520, L100.0100, L501.2300, L501.5200 ####[facility] [address] [place], [address] Albumin/Globulin [Mass ratio] 0.5 {ratio} Low 0.9-2.4 [facility] Comment on above: Performed By: #### L 500.4050, L501.9520, L100.0100, L501.2300, L501.5200 ####[facility] [address] [place], [address] ALK P 128 U/L High 45-117 [facility] Comment on above: Performed By: #### L 500.4050, L501.9520, L100.0100, L501.2300, L501.5200 ####[facility] [address] [place], [address] ALT [Catalytic activity/Vol] 12 U/L Low 13-56 [facility] Comment on above: Performed By: #### L 500.4050, L501.9520, L100.0100, L501.2300, L501.5200 ####[facility] [address] [place], [address] AST [Catalytic activity/Vol] 15 U/L Normal 15-37 [facility] Comment on above: Performed By: #### L 500.4050, L501.9520, L100.0100, L501.2300, L501.5200 ####[facility] [address] [place], [address] Bilirubin [Mass/Vol] 0.30 mg/dL Normal 0.20-1.00 [facility] Comment on above: Result Comment: For patients on eltrombopag therapy, use of Dimension [place] TBIL is not recommended. Performed By: #### L 500.4050, L501.9520, L100.0100, L501.2300, L501.5200 ####[facility] [address] [place], [address] BUN/CRE 43.7 RATIO High 10-20 [facility] Comment on above: Performed By: #### L 500.4050, L501.9520, L100.0100, L501.2300, L501.5200 ####[facility] [address] [place], [address] CA,Total 7.4 mg/dL Low 8.5-10.1 [facility] Comment on above: Performed By: #### L 500.4050, L501.9520, L100.0100, L501.2300, L501.5200 ####[facility] [address] [place], [address] Chloride [Moles/Vol] 109 mmol/L High 98-107 [facility] Comment on above: Performed By: #### L 500.4050, L501.9520, L100.0100, L501.2300, L501.5200 ####[facility] [address] [place], [address] CO2 [Moles/Vol] 29.0 mmol/L Normal 21.0-32.0 [facility] Comment on above: Performed By: #### L 500.4050, L501.9520, L100.0100, L501.2300, L501.5200 ####[facility] [address] [place], [address] Creatinine [Mass/Vol] 0.46 mg/dL Low 0.55-1.02 [facility] Comment on above: Result Comment: The validity of the calculated GFR GFRAA in patients over70 years has not been determined. Clinical correlation isessential. Performed By: #### L 500.4050, L501.9520, L100.0100, L501.2300, L501.5200 ####[facility] [address] [place], [address] ECRCL 83.43 ml/min Normal [facility] Comment on above: Performed By: #### L 500.4050, L501.9520, L100.0100, L501.2300, L501.5200 ####[facility] [address] [place], [address] EST GFR - AA 171 mL/min Normal >60 [facility] Comment on above: Result Comment: Afri can Gabonese GFR Calc Performed By: #### L 500.4050, L501.9520, L100.0100, L501.2300, L501.5200 ####[facility] [address] [place], [address] GAP 5 Normal 5-15 [facility] Comment on above: Performed By: #### L 500.4050, L501.9520, L100.0100, L501.2300, L501.5200 ####[facility] [address] [place], [address] GFR/1.73 sq M.predicted among non-blacks MDRD (S/P/Bld) [Vol rate/Area] 141 mL/min/{1.73_m2} Normal >60 [facility] Comment on above: Result Comment: Non- GFR Calc Performed By: #### L 500.4050, L501.9520, L100.0100, L501.2300, L501.5200 ####[facility] [address] [place], [address] Globulin (S) [Mass/Vol] 3.0 g/dL Normal 2.2-4.2 [facility] Comment on above: Performed By: #### L 500.4050, L501.9520, L100.0100, L501.2300, L501.5200 ####[facility] [address] [place], [address] Glucose [Mass/Vol] 151 mg/dL High 74-106 [facility] Comment on above: Result Comment: Fast ing Glucose result greater than or equal to 126 mg/dLsuggests DIABETES MELLITUS per A.D.A. criteria. Performed By: #### L 500.4050, L501.9520, L100.0100, L501.2300, L501.5200 ####[facility] [address] [place], [address] Potassium [Moles/Vol] 3.7 mmol/L Normal 3.5-5.1 [facility] Comment on above: Performed By: #### L 500.4050, L501.9520, L100.0100, L501.2300, L501.5200 ####[facility] [address] [place], [address] Sodium [Moles/Vol] 143 mmol/L Normal 136-145 [facility] Comment on above: Performed By: #### L 500.4050, L501.9520, L100.0100, L501.2300, L501.5200 ####[facility] [address] [place], [address] T PROT 4.4 g/dL Low 6.4-8.2 [facility] Comment on above: Performed By: #### L 500.4050, L501.9520, L100.0100, L501.2300, L501.5200 ####[facility] [address] [place], [address] Urea nitrogen [Mass/Vol] 20 mg/dL High 7-18 [facility] Comment on above: Performed By: #### L 500.4050, L501.9520, L100.0100, L501.2300, L501.5200 ####[facility] [address] [place], [address] Echo Completeon 01-01-2024 Echo Complete Normal [facility] Magnesiumon 01-01-2024 Magnesium [Mass/Vol] 1.4 mg/dL Low 1.6-2.6 [facility] Comment on above: Performed By: #### L 500.4050, L501.9520, L100.0100, L501.2300, L501.5200 ####[facility] [address] [place], [address] Phosphoruson 01-01-2024 Phosphate [Mass/Vol] 3.4 mg/dL Normal 2.5-4.9 [facility] Comment on above: Performed By: #### L 500.4050, L501.9520, L100.0100, L501.2300, L501.5200 ####[facility] [address] [place], [address] Thyroid Stim Hormone (TSH)on 01-01-2024 TSH 1.650 uIU/mL Normal 0.358-3.740 [facility] Comment on above: Performed By: #### L 500.4050, L501.9520, L100.0100, L501.2300, L501.5200 ####[facility] [address] [place], [address] Urine Drug Screen (VISTA)on 01-01-2024 VISTA UDS PH 6 Normal [facility] Comment on above: Result Comment: AMENDED REPORT 01/01/24 0625 VISTA UDS PH previously reported as: 5 Performed By: #### L 501.9100, L505.5000, L506.0250 ####[facility] [address] [place], [address] Venous Blood Gason 4 Blood Gas Type SOLIS Normal [facility] Comment on above: Performed By: #### L 9000.0810 ####[facility] [address] [place], [address] CO2 [Moles/Vol] 29 mmol/L Normal 23-33 [facility] Comment on above: Performed By: #### L 9000.0810 ####[facility] [address] [place], [address] FI02 30.0 Normal [facility] Comment on above: Performed By: #### L 9000.0810 ####[facility] [address] [place], [address] HCO3 (Bld) [Moles/Vol] 28 mmol/L High 22-26 [facility] Comment on above: Performed By: #### L 9000.0810 ####[facility] [address] [place], [address] O2 Delivery Dev BiPAP Normal [facility] Comment on above: Performed By: #### L 9000.0810 ####[facility] [address] [place], [address] SITE Not entered Normal [facility] Comment on above: Performed By: #### L 9000.0810 ####[facility] [address] [place], [address] VBG BE 4 mmol/L High -1.0-3.5 [facility] Comment on above: Performed By: #### L 9000.0810 ####[facility] [address] [place], [address] VBG pCO2 38.9 mmHg Low 41-51 [facility] Comment on above: Performed By: #### L 9000.0810 ####[facility] [address] [place], [address] VBG pH 7.47 High 7.32-7.42 [facility] Comment on above: Performed By: #### L 9000.0810 ####[facility] [address] [place], [address] VBG PO2 51 mmHg High 25-40 [facility] Comment on above: Performed By: #### L 9000.0810 ####[facility] [address] [place], [address] VBG SO2 88 High 50-70 [facility] Comment on above: Performed By: #### L 9000.0810 ####[facility] [address] [place], [address] 12 Lead EKGon 12-31-2023 12 Lead EKG Normal [facility] Ammoniaon 12-31-2023 Ammonia (P) [Moles/Vol] 19.0 umol/L Normal 11-32 [facility] Comment on above: Performed By: #### L 503.5510 ####[facility] [address] [place], [address] BNP,B-Type NATRIURETIC PEPTI Larry 12-31-2023 Natriuretic peptide B (Bld) [Mass/Vol] 566.6 pg/mL High 0-100 [facility] Comment on above: Performed By: #### L 503.6620 ####[facility] [address] [place], [address] Blood Gases by CPSon 024 ANUJ TEST Positive Normal [facility] Comment on above: Performed By: #### L 9000.0800 ####[facility] [address] [place], [address] Base excess Calc (Bld) [Moles/Vol] 9 mmol/L High -2 to +2 [facility] Comment on above: Performed By: #### L 9000.0800 ####[facility] [address] [place], [address] Blood Gas Type ART Normal [facility] Comment on above: Performed By: #### L 9000.0800 ####[facility] [address] [place], [address] CO2 [Moles/Vol] 34 mmol/L Normal [facility] Comment on above: Performed By: #### L 9000.0800 ####[facility] [address] [place], [address] FI02 50.0 Normal [facility] Comment on above: Performed By: #### L 9000.0800 ####[facility] [address] [place], [address] HCO3 (Bld) [Moles/Vol] 32.6 mmol/L High 22-26 [facility] Comment on above: Performed By: #### L 9000.0800 ####[facility] [address] [place], [address] Mode Not entered [facility] Comment on above: Performed By: #### L 9000.0800 ####[facility] [address] [place], [address] O2 Delivery Dev BiPAP [facility] Comment on above: Performed By: #### L 9000.0800 ####[facility] [address] [place], [address] pCO2 45.3 mmHg High 35-45 [facility] Comment on above: Performed By: #### L 9000.0800 ####[facility] [address] [place], [address] PEEP 6 Normal [facility] Comment on above: Performed By: #### L 9000.0800 ####[facility] [address] [place], [address] pH (Bld) 7.47 [pH] High 7.35-7.45 [facility] Comment on above: Performed By: #### L 9000.0800 ####[facility] [address] [place], [address] PIP 14 Normal [facility] Comment on above: Performed By: #### L 9000.0800 ####[facility] [address] [place], [address] PO2 198 mmHG High 75-100 [facility] Comment on above: Performed By: #### L 0.0800 ####[facility] [address] [place], [address] RR 12 Normal [facility] Comment on above: Performed By: #### L 0.0800 ####[facility] [address] [place], [address] SITE L Radial Normal [facility] Comment on above: Performed By: #### L 0.0800 ####[facility] [address] [place], [address] SO2 100 High 95-99 [facility] Comment on above: Performed By: #### L 0.0800 ####[facility] [address] [place], [address] CBC W/Diff, Automatedon 09-2 -2023 Absolute Lymph 1.86 X10 3/uL Normal 0.83-4.51 [facility] Comment on above: Performed By: #### L 100.0100, L501.4020, L300.3900, L300.4310, L500.4050, L503.6005 ####[facility] [address] [place], [address] Absolute Neut 4.9 X10 3/uL Normal 2.0-7.7 [facility] Comment on above: Performed By: #### L 100.0100, L501.4020, L300.3900, L300.4310, L500.4050, L503.6005 ####[facility] [address] [place], [address] Basophils/100 WBC (Bld) 0.7 % Normal 0-1 [facility] Comment on above: Performed By: #### L 100.0100, L501.4020, L300.3900, L300.4310, L500.4050, L503.6005 ####[facility] [address] [place], [address] Eosinophils/100 WBC (Bld) 2.9 % Normal 0-5 [facility] Comment on above: Performed By: #### L 100.0100, L501.4020, L300.3900, L300.4310, L500.4050, L503.6005 ####[facility] [address] [place], [address] Erythrocyte distribution width (RBC) [Ratio] 17.7 % High 11.6-14.6 [facility] Comment on above: Performed By: #### L 100.0100, L501.4020, L300.3900, L300.4310, L500.4050, L503.6005 ####[facility] [address] [place], [address] Hematocrit (Bld) [Volume fraction] 32.8 % Low 37-47 [facility] Comment on above: Performed By: #### L 100.0100, L501.4020, L300.3900, L300.4310, L500.4050, L503.6005 ####[facility] [address] [place], [address] Hemoglobin (Bld) [Mass/Vol] 9.9 g/dL Low 12.0-15.0 [facility] Comment on above: Performed By: #### L 100.0100, L501.4020, L300.3900, L300.4310, L500.4050, L503.6005 ####[facility] [address] [place], [address] IG% 0.400 Normal 0.0-0.9 [facility] Comment on above: Result Comment: IG% - Immature Granulocytes (promyelocytes, myelocytes andmetamyelocytes) > 1% indicates that a LEFT SHIFT is Present. Performed By: #### L 100.0100, L501.4020, L300.3900, L300.4310, L500.4050, L503.6005 ####[facility] [address] [place], [address] Lymphocytes/100 WBC (Bld) 24.3 % Normal 19-41 [facility] Comment on above: Performed By: #### L 100.0100, L501.4020, L300.3900, L300.4310, L500.4050, L503.6005 ####[facility] [address] [place], [address] MCH (RBC) [Entitic mass] 25.8 pg Low 27.0-32.0 [facility] Comment on above: Performed By: #### L 100.0100, L501.4020, L300.3900, L300.4310, L500.4050, L503.6005 ####[facility] [address] [place], [address] MCHC (RBC) [Mass/Vol] 30.2 g/dL Low 32-36 [facility] Comment on above: Performed By: #### L 100.0100, L501.4020, L300.3900, L300.4310, L500.4050, L503.6005 ####[facility] [address] [place], [address] MCV (RBC) [Entitic vol] 85.6 fL Normal 81-99 [facility] Comment on above: Performed By: #### L 100.0100, L501.4020, L300.3900, L300.4310, L500.4050, L503.6005 ####[facility] [address] [place], [address] Monocytes/100 WBC (Bld) 7.8 % Normal 0-10 [facility] Comment on above: Performed By: #### L 100.0100, L501.4020, L300.3900, L300.4310, L500.4050, L503.6005 ####[facility] [address] [place], [address] Neutrophils/100 WBC (Bld) 63.9 % Normal 47-70 [facility] Comment on above: Performed By: #### L 100.0100, L501.4020, L300.3900, L300.4310, L500.4050, L503.6005 ####[facility] [address] [place], [address] Nucleated RBC (Bld) [#/Vol] 0 10*3/uL Normal 0-5 [facility] Comment on above: Performed By: #### L 100.0100, L501.4020, L300.3900, L300.4310, L500.4050, L503.6005 ####[facility] [address] [place], [address] Platelet mean volume (Bld) [Entitic vol] 9.1 fL Normal 6.2-12.0 [facility] Comment on above: Performed By: #### L 100.0100, L501.4020, L300.3900, L300.4310, L500.4050, L503.6005 ####[facility] [address] [place], [address] Platelets (Bld) [#/Vol] 239 10*3/uL Normal 150-450 [facility] Comment on above: Performed By: #### L 100.0100, L501.4020, L300.3900, L300.4310, L500.4050, L503.6005 ####[facility] [address] [place], [address] RBC (Bld) [#/Vol] 3.83 10*6/uL Low 4.2-5.4 [facility] Comment on above: Performed By: #### L 100.0100, L501.4020, L300.3900, L300.4310, L500.4050, L503.6005 ####[facility] [address] [place], [address] RDW SD 55.0 fl High 35.1-43.9 [facility] Comment on above: Performed By: #### L 100.0100, L501.4020, L300.3900, L300.4310, L500.4050, L503.6005 ####[facility] [address] [place], [address] WBC (Bld) [#/Vol] 7.7 10*3/uL Normal 4.4-11.0 [facility] Comment on above: Performed By: #### L 100.0100, L501.4020, L300.3900, L300.4310, L500.4050, L503.6005 ####[facility] [address] [place], [address] Absolute Lymph 2.18 X10 3/uL Normal 0.83-4.51 [facility] Comment on above: Order Comment: 514.1 Performed By: #### L 501.6710, L500.4050, L501.8820, L100.0100 ####[facility] [address] [place], [address] Absolute Neut 5.0 X10 3/uL Normal 2.0-7.7 [facility] Comment on above: Order Comment: 514.1 Performed By: #### L 501.6710, L500.4050, L501.8820, L100.0100 ####[facility] [address] [place], [address] Basophils/100 WBC (Bld) 0.7 % Normal 0-1 [facility] Comment on above: Order Comment: 514.1 Performed By: #### L 501.6710, L500.4050, L501.8820, L100.0100 ####[facility] [address] [place], [address] Eosinophils/100 WBC (Bld) 3.8 % Normal 0-5 [facility] Comment on above: Order Comment: 514.1 Performed By: #### L 501.6710, L500.4050, L501.8820, L100.0100 ####[facility] [address] [place], [address] Erythrocyte distribution width (RBC) [Ratio] 17.8 % High 11.6-14.6 [facility] Comment on above: Order Comment: 514.1 Performed By: #### L 501.6710, L500.4050, L501.8820, L100.0100 ####[facility] [address] [place], [address] Hematocrit (Bld) [Volume fraction] 32.6 % Low 37-47 [facility] Comment on above: Order Comment: 514.1 Performed By: #### L 501.6710, L500.4050, L501.8820, L100.0100 ####[facility] [address] [place], [address] Hemoglobin (Bld) [Mass/Vol] 9.7 g/dL Low 12.0-15.0 [facility] Comment on above: Order Comment: 514.1 Performed By: #### L 501.6710, L500.4050, L501.8820, L100.0100 ####[facility] [address] [place], [address] IG% 0.200 Normal 0.0-0.9 [facility] Comment on above: Order Comment: 514.1 Result Comment: IG% - Immature Granulocytes (promyelocytes, myelocytes andmetamyelocytes) > 1% indicates that a LEFT SHIFT is Present. Performed By: #### L 501.6710, L500.4050, L501.8820, L100.0100 ####[facility] [address] [place], [address] Lymphocytes/100 WBC (Bld) 26.6 % Normal 19-41 [facility] Comment on above: Order Comment: 514.1 Performed By: #### L 501.6710, L500.4050, L501.8820, L100.0100 ####[facility] [address] [place], [address] MCH (RBC) [Entitic mass] 25.7 pg Low 27.0-32.0 [facility] Comment on above: Order Comment: 514.1 Performed By: #### L 501.6710, L500.4050, L501.8820, L100.0100 ####[facility] [address] [place], [address] MCHC (RBC) [Mass/Vol] 29.8 g/dL Low 32-36 [facility] Comment on above: Order Comment: 514.1 Performed By: #### L 501.6710, L500.4050, L501.8820, L100.0100 ####[facility] [address] [place], [address] MCV (RBC) [Entitic vol] 86.2 fL Normal 81-99 [facility] Comment on above: Order Comment: 514.1 Performed By: #### L 501.6710, L500.4050, L501.8820, L100.0100 ####[facility] [address] [place], [address] Monocytes/100 WBC (Bld) 7.4 % Normal 0-10 [facility] Comment on above: Order Comment: 514.1 Performed By: #### L 501.6710, L500.4050, L501.8820, L100.0100 ####[facility] [address] [place], [address] Neutrophils/100 WBC (Bld) 61.3 % Normal 47-70 [facility] Comment on above: Order Comment: 514.1 Performed By: #### L 501.6710, L500.4050, L501.8820, L100.0100 ####[facility] [address] [place], [address] Nucleated RBC (Bld) [#/Vol] 0 10*3/uL Normal 0-5 [facility] Comment on above: Order Comment: 514.1 Performed By: #### L 501.6710, L500.4050, L501.8820, L100.0100 ####[facility] [address] [place], [address] Platelet mean volume (Bld) [Entitic vol] 9.8 fL Normal 6.2-12.0 [facility] Comment on above: Order Comment: 514.1 Performed By: #### L 501.6710, L500.4050, L501.8820, L100.0100 ####[facility] [address] [place], [address] Platelets (Bld) [#/Vol] 220 10*3/uL Normal 150-450 [facility] Comment on above: Order Comment: 514.1 Performed By: #### L 501.6710, L500.4050, L501.8820, L100.0100 ####[facility] [address] [place], [address] RBC (Bld) [#/Vol] 3.78 10*6/uL Low 4.2-5.4 [facility] Comment on above: Order Comment: 514.1 Performed By: #### L 501.6710, L500.4050, L501.8820, L100.0100 ####[facility] [address] [place], [address] RDW SD 55.7 fl High 35.1-43.9 [facility] Comment on above: Order Comment: 514.1 Performed By: #### L 501.6710, L500.4050, L501.8820, L100.0100 ####[facility] [address] [place], [address] WBC (Bld) [#/Vol] 8.2 10*3/uL Normal 4.4-11.0 [facility] Comment on above: Order Comment: 514.1 Performed By: #### L 501.6710, L500.4050, L501.8820, L100.0100 ####[facility] [address] [place], [address] CRPon 12-31-2023 C-REACTIVE PROT 49.30 mg/L High 0.0-3.0 [facility] Comment on above: Order Comment: 514.1 Result Comment: C-Re active Protein (CRP) provides useful information for thediagnosis, therapy and monitoring of inflammatory processesand associated diseases. For the evaluation of Relative Riskfor Cardiovascular Disease, a High Sensitivity CRP (HSCRP)should be ordered. Performed By: #### L 501.6710, L500.4050, L501.8820, L100.0100 ####[facility] [address] [place], [address] Chest 1 View (Portable)on Chest 1 View (Portable) Normal [facility] Comprehensive Metabolic Prof ilon 12-31-2023 Albumin [Mass/Vol] 1.4 g/dL Low 3.2-5.0 [facility] Comment on above: Order Comment: 'TROP ' Serial specimen #1, #2 or #3: 1 Performed By: #### L 100.0100, L501.4020, L300.3900, L300.4310, L500.4050, L503.6005 ####[facility] [address] [place], [address] Albumin/Globulin [Mass ratio] 0.4 {ratio} Low 0.9-2.4 [facility] Comment on above: Order Comment: 'TROP ' Serial specimen #1, #2 or #3: 1 Performed By: #### L 100.0100, L501.4020, L300.3900, L300.4310, L500.4050, L503.6005 ####[facility] [address] [place], [address] ALK P 137 U/L High 45-117 [facility] Comment on above: Order Comment: 'TROP ' Serial specimen #1, #2 or #3: 1 Performed By: #### L 100.0100, L501.4020, L300.3900, L300.4310, L500.4050, L503.6005 ####[facility] [address] [place], [address] ALT [Catalytic activity/Vol] 13 U/L Normal 13-56 [facility] Comment on above: Order Comment: 'TROP ' Serial specimen #1, #2 or #3: 1 Performed By: #### L 100.0100, L501.4020, L300.3900, L300.4310, L500.4050, L503.6005 ####[facility] [address] [place], [address] AST [Catalytic activity/Vol] 21 U/L Normal 15-37 [facility] Comment on above: Order Comment: 'TROP ' Serial specimen #1, #2 or #3: 1 Performed By: #### L 100.0100, L501.4020, L300.3900, L300.4310, L500.4050, L503.6005 ####[facility] [address] [place], [address] Bilirubin [Mass/Vol] 0.30 mg/dL Normal 0.20-1.00 [facility] Comment on above: Order Comment: 'TROP ' Serial specimen #1, #2 or #3: 1 Result Comment: For patients on eltrombopag therapy, use of Dimension [place] TBIL is not recommended. Performed By: #### L 100.0100, L501.4020, L300.3900, L300.4310, L500.4050, L503.6005 ####[facility] [address] [place], [address] BUN/CRE 37.0 RATIO High 10-20 [facility] Comment on above: Order Comment: 'TROP ' Serial specimen #1, #2 or #3: 1 Performed By: #### L 100.0100, L501.4020, L300.3900, L300.4310, L500.4050, L503.6005 ####[facility] [address] [place], [address] CA,Total 7.8 mg/dL Low 8.5-10.1 [facility] Comment on above: Order Comment: 'TROP ' Serial specimen #1, #2 or #3: 1 Performed By: #### L 100.0100, L501.4020, L300.3900, L300.4310, L500.4050, L503.6005 ####[facility] [address] [place], [address] Chloride [Moles/Vol] 106 mmol/L Normal 98-107 [facility] Comment on above: Order Comment: 'TROP ' Serial specimen #1, #2 or #3: 1 Performed By: #### L 100.0100, L501.4020, L300.3900, L300.4310, L500.4050, L503.6005 ####[facility] [address] [place], [address] CO2 [Moles/Vol] 32.0 mmol/L Normal 21.0-32.0 [facility] Comment on above: Order Comment: 'TROP ' Serial specimen #1, #2 or #3: 1 Performed By: #### L 100.0100, L501.4020, L300.3900, L300.4310, L500.4050, L503.6005 ####[facility] [address] [place], [address] Creatinine [Mass/Vol] 0.54 mg/dL Low 0.55-1.02 [facility] Comment on above: Order Comment: 'TROP ' Serial specimen #1, #2 or #3: 1 Result Comment: The validity of the calculated GFR GFRAA in patients over70 years has not been determined. Clinical correlation isessential. Performed By: #### L 100.0100, L501.4020, L300.3900, L300.4310, L500.4050, L503.6005 ####[facility] [address] [place], [address] EST GFR - AA 141 mL/min Normal >60 [facility] Comment on above: Order Comment: 'TROP ' Serial specimen #1, #2 or #3: 1 Result Comment: Afri can [place] GFR Calc Performed By: #### L 100.0100, L501.4020, L300.3900, L300.4310, L500.4050, L503.6005 ####[facility] [address] [place], [address] GAP 4 Low 5-15 [facility] Comment on above: Order Comment: 'TROP ' Serial specimen #1, #2 or #3: 1 Performed By: #### L 100.0100, L501.4020, L300.3900, L300.4310, L500.4050, L503.6005 ####[facility] [address] [place], [address] GFR/1.73 sq M.predicted among non-blacks MDRD (S/P/Bld) [Vol rate/Area] 117 mL/min/{1.73_m2} Normal >60 [facility] Comment on above: Order Comment: 'TROP ' Serial specimen #1, #2 or #3: 1 Result Comment: Non- GFR Calc Performed By: #### L 100.0100, L501.4020, L300.3900, L300.4310, L500.4050, L503.6005 ####[facility] [address] [place], [address] Globulin (S) [Mass/Vol] 3.3 g/dL Normal 2.2-4.2 [facility] Comment on above: Order Comment: 'TROP ' Serial specimen #1, #2 or #3: 1 Performed By: #### L 100.0100, L501.4020, L300.3900, L300.4310, L500.4050, L503.6005 ####[facility] [address] [place], [address] Glucose [Mass/Vol] 139 mg/dL High 74-106 [facility] Comment on above: Order Comment: 'TROP ' Serial specimen #1, #2 or #3: 1 Result Comment: Fast ing Glucose result greater than or equal to 126 mg/dLsuggests DIABETES MELLITUS per A.D.A. criteria. Performed By: #### L 100.0100, L501.4020, L300.3900, L300.4310, L500.4050, L503.6005 ####[facility] [address] [place], [address] Potassium [Moles/Vol] 2.6 mmol/L Invalid Interpretation Code 3.5-5.1 [facility] Comment on above: Order Comment: 'TROP ' Serial specimen #1, #2 or #3: 1 Result Comment: Crit ical Result(s) Called at: 18:38:24 12/31/2023 by:AIME HEREDIA TO [facility]. Results read back by same. Performed By: #### L 100.0100, L501.4020, L300.3900, L300.4310, L500.4050, L503.6005 ####[facility] [address] [place], [address] Sodium [Moles/Vol] 142 mmol/L Normal 136-145 [facility] Comment on above: Order Comment: 'TROP ' Serial specimen #1, #2 or #3: 1 Performed By: #### L 100.0100, L501.4020, L300.3900, L300.4310, L500.4050, L503.6005 ####[facility] [address] [place], [address] T PROT 4.7 g/dL Low 6.4-8.2 [facility] Comment on above: Order Comment: 'TROP ' Serial specimen #1, #2 or #3: 1 Performed By: #### L 100.0100, L501.4020, L300.3900, L300.4310, L500.4050, L503.6005 ####[facility] [address] [place], [address] Urea nitrogen [Mass/Vol] 20 mg/dL High 7-18 [facility] Comment on above: Order Comment: 'TROP ' Serial specimen #1, #2 or #3: 1 Performed By: #### L 100.0100, L501.4020, L300.3900, L300.4310, L500.4050, L503.6005 ####[facility] [address] [place], [address] Albumin [Mass/Vol] 1.4 g/dL Low 3.2-5.0 [facility] Comment on above: Order Comment: 514.1 Performed By: #### L 501.6710, L500.4050, L501.8820, L100.0100 ####[facility] [address] [place], [address] Albumin/Globulin [Mass ratio] 0.4 {ratio} Low 0.9-2.4 [facility] Comment on above: Order Comment: 514.1 Performed By: #### L 501.6710, L500.4050, L501.8820, L100.0100 ####[facility] [address] [place], [address] ALK P 139 U/L High 45-117 [facility] Comment on above: Order Comment: 514.1 Performed By: #### L 501.6710, L500.4050, L501.8820, L100.0100 ####[facility] [address] [place], [address] ALT [Catalytic activity/Vol] 15 U/L Normal 13-56 [facility] Comment on above: Order Comment: 514.1 Performed By: #### L 501.6710, L500.4050, L501.8820, L100.0100 ####[facility] [address] [place], [address] AST [Catalytic activity/Vol] 21 U/L Normal 15-37 [facility] Comment on above: Order Comment: 514.1 Performed By: #### L 501.6710, L500.4050, L501.8820, L100.0100 ####[facility] [address] [place], [address] Bilirubin [Mass/Vol] 0.30 mg/dL Normal 0.20-1.00 [facility] Comment on above: Order Comment: 514.1 Result Comment: For patients on eltrombopag therapy, use of Dimension [place] TBIL is not recommended. Performed By: #### L 501.6710, L500.4050, L501.8820, L100.0100 ####[facility] [address] [place], [address] BUN/CRE 36.6 RATIO High 10-20 [facility] Comment on above: Order Comment: 514.1 Performed By: #### L 501.6710, L500.4050, L501.8820, L100.0100 ####[facility] [address] [place], [address] CA,Total 7.7 mg/dL Low 8.5-10.1 [facility] Comment on above: Order Comment: 514.1 Performed By: #### L 501.6710, L500.4050, L501.8820, L100.0100 ####[facility] [address] [place], [address] Chloride [Moles/Vol] 106 mmol/L Normal 98-107 [facility] Comment on above: Order Comment: 514.1 Performed By: #### L 501.6710, L500.4050, L501.8820, L100.0100 ####[facility] [address] [place], [address] CO2 [Moles/Vol] 29.0 mmol/L Normal 21.0-32.0 [facility] Comment on above: Order Comment: 514.1 Performed By: #### L 501.6710, L500.4050, L501.8820, L100.0100 ####[facility] [address] [place], [address] Creatinine [Mass/Vol] 0.49 mg/dL Low 0.55-1.02 [facility] Comment on above: Order Comment: 514.1 Result Comment: The validity of the calculated GFR GFRAA in patients over70 years has not been determined. Clinical correlation isessential. Performed By: #### L 501.6710, L500.4050, L501.8820, L100.0100 ####[facility] [address] [place], [address] EST GFR - AA 157 mL/min Normal >60 [facility] Comment on above: Order Comment: 514.1 Result Comment: Afri can [place] GFR Calc Performed By: #### L 501.6710, L500.4050, L501.8820, L100.0100 ####[facility] [address] [place], [address] GAP 7 Normal 5-15 [facility] Comment on above: Order Comment: 514.1 Performed By: #### L 501.6710, L500.4050, L501.8820, L100.0100 ####[facility] [address] [place], [address] GFR/1.73 sq M.predicted among non-blacks MDRD (S/P/Bld) [Vol rate/Area] 130 mL/min/{1.73_m2} Normal >60 [facility] Comment on above: Order Comment: 514.1 Result Comment: Non- GFR Calc Performed By: #### L 501.6710, L500.4050, L501.8820, L100.0100 ####[facility] [address] [place], [address] Globulin (S) [Mass/Vol] 3.3 g/dL Normal 2.2-4.2 [facility] Comment on above: Order Comment: 514.1 Performed By: #### L 501.6710, L500.4050, L501.8820, L100.0100 ####[facility] [address] [place], [address] Glucose [Mass/Vol] 80 mg/dL Normal 74-106 [facility] Comment on above: Order Comment: 514.1 Performed By: #### L 501.6710, L500.4050, L501.8820, L100.0100 ####[facility] [address] [place], [address] Potassium [Moles/Vol] 2.9 mmol/L Low 3.5-5.1 [facility] Comment on above: Order Comment: 514.1 Performed By: #### L 501.6710, L500.4050, L501.8820, L100.0100 ####[facility] [address] [place], [address] Sodium [Moles/Vol] 142 mmol/L Normal 136-145 [facility] Comment on above: Order Comment: 514.1 Performed By: #### L 501.6710, L500.4050, L501.8820, L100.0100 ####[facility] [address] [place], [address] T PROT 4.7 g/dL Low 6.4-8.2 [facility] Comment on above: Order Comment: 514.1 Performed By: #### L 501.6710, L500.4050, L501.8820, L100.0100 ####[facility] [address] [place], [address] Urea nitrogen [Mass/Vol] 18 mg/dL Normal 7-18 [facility] Comment on above: Order Comment: 514.1 Performed By: #### L 501.6710, L500.4050, L501.8820, L100.0100 ####[facility] [address] [place], [address] Emergency Department Summary on 12-31-2023 Emergency Department Summary Normal [facility] Folates, (Folic Acid)on 12-09 FOLATES 10.10 ng/mL Normal 3.1-55.4 [facility] Comment on above: Order Comment: Has P atient had X-rays with Contrast this admission? NN Performed By: #### L 501.9100, L505.5000, L506.0250 ####[facility] [address] [place], [address] H AND P Exam - Hospitaliston 12-31-2023 H&P Exam - Hospitalist Normal [facility] L501.4020on 12-31-2023 TROPONIN-I HS 29 pg/mL Normal 3.0-54.0 [facility] Comment on above: Order Comment: 'TROP ' Serial specimen #1, #2 or #3: 1 Result Comment: Kalli torres Note: New Test Units and Gender Specific Reference Ranges. For more information see Policy Stat Procedure [place] High Sensitivity Troponin (TNIH) and attachments. Performed By: #### L 100.0100, L501.4020, L300.3900, L300.4310, L500.4050, L503.6005 ####[facility] [address] [place], [address] Lactic Acidon 12-31-2023 Lactate [Moles/Vol] 1.0 mmol/L Normal 0.4-1.9 [facility] Comment on above: Order Comment: Y Performed By: #### L 100.0100, L501.4020, L300.3900, L300.4310, L500.4050, L503.6005 ####[facility] [address] [place], [address] M100.678on 12-31-2023 M100.678 Normal [facility] Comment on above: Performed By: #### L 400.0001, M100.2200, M100.678 ####[facility] [address] [place], [address] Magnesiumon 12-31-2023 Magnesium [Mass/Vol] 1.1 mg/dL Low 1.6-2.6 [facility] Comment on above: Performed By: #### L 501.5200 ####[facility] [address] [place], [address] Partial Thromboplast Timeon 12-31-2023 aPTT Coag (Bld) [Time] 39.9 s High 24.1-36.2 [facility] Comment on above: Performed By: #### L 100.0100, L501.4020, L300.3900, L300.4310, L500.4050, L503.6005 ####[facility] [address] [place], [address] Prothrombin Time w/INRon INR Coag (PPP) [Relative time] 1.8 {INR} Normal [facility] Comment on above: Performed By: #### L 100.0100, L501.4020, L300.3900, L300.4310, L500.4050, L503.6005 ####[facility] [address] [place], [address] PT Coag (PPP) [Time] 20.9 s High 11.7-14.9 [facility] Comment on above: Performed By: #### L 100.0100, L501.4020, L300.3900, L300.4310, L500.4050, L503.6005 ####[facility] [address] [place], [address] Urinalysis, Completeon 12-30 BACTERIA 2+ /hpf Normal None Seen [facility] Comment on above: Order Comment: COLOR OF URINE MAY AFFECT DIPSTICK RESULTS.CATHETER SPECIMEN Performed By: #### L 400.0001, M100.2200, M100.678 ####[facility] [address] [place], [address] Mucus Ql (Urine sed) 2+ /hpf Normal [facility] Comment on above: Order Comment: COLOR OF URINE MAY AFFECT DIPSTICK RESULTS.CATHETER SPECIMEN Performed By: #### L 400.0001, M100.2200, M100.678 ####[facility] [address] [place], [address] RBC 0-5 SEEN Normal 0-5 [facility] Comment on above: Order Comment: COLOR OF URINE MAY AFFECT DIPSTICK RESULTS.CATHETER SPECIMEN Performed By: #### L 400.0001, M100.2200, M100.678 ####[facility] [address] [place], [address] YEAST 2+ /hpf Normal None Seen [facility] Comment on above: Order Comment: COLOR OF URINE MAY AFFECT DIPSTICK RESULTS.CATHETER SPECIMEN Performed By: #### L 400.0001, M100.2200, M100.678 ####[facility] [address] [place], [address] WBC 25-50 SEEN Normal 0-5 [facility] Comment on above: Order Comment: COLOR OF URINE MAY AFFECT DIPSTICK RESULTS.CATHETER SPECIMEN Performed By: #### L 400.0001, M100.2200, .8 ####[facility] [address] [place], [address] BILIRUBIN URINE Negative Normal Negative [facility] Comment on above: Order Comment: COLOR OF URINE MAY AFFECT DIPSTICK RESULTS.CATHETER SPECIMEN Performed By: #### L 400.0001, 00.0, .8 ####[facility] [address] [place], [address] Clarity (U) Clear Normal Clear [facility] Comment on above: Order Comment: COLOR OF URINE MAY AFFECT DIPSTICK RESULTS.CATHETER SPECIMEN Performed By: #### L 400.0001, 00.0, .8 ####[facility] [address] [place], [address] Color (U) Rita Normal Yellow [facility] Comment on above: Order Comment: COLOR OF URINE MAY AFFECT DIPSTICK RESULTS.CATHETER SPECIMEN Performed By: #### L 400.0001, M100.2200, .8 ####[facility] [address] [place], [address] GLUCOSE, UR Normal Normal Normal [facility] Comment on above: Order Comment: COLOR OF URINE MAY AFFECT DIPSTICK RESULTS.CATHETER SPECIMEN Performed By: #### L 400.0001, M100.2200, .678 ####[facility] [address] [place], [address] KETONE UR Negative Normal Negative [facility] Comment on above: Order Comment: COLOR OF URINE MAY AFFECT DIPSTICK RESULTS.CATHETER SPECIMEN Performed By: #### L 400.0001, M100.2200, .678 ####[facility] [address] [place], [address] LEUK ESTERASE 100 /ul Abnormal Negative [facility] Comment on above: Order Comment: COLOR OF URINE MAY AFFECT DIPSTICK RESULTS.CATHETER SPECIMEN Performed By: #### L 400.0001, 00.0, 8 ####[facility] [address] [place], [address] Nitrite Ql (U) Negative Normal Negative [facility] Comment on above: Order Comment: COLOR OF URINE MAY AFFECT DIPSTICK RESULTS.CATHETER SPECIMEN Performed By: #### L 400.0001, .2199, 8 ####[facility] [address] [place], [address] OCCULT BLOOD-UR Negative Normal Negative [facility] Comment on above: Order Comment: COLOR OF URINE MAY AFFECT DIPSTICK RESULTS.CATHETER SPECIMEN Performed By: #### L 400.0001, .2199, 8 ####[facility] [address] [place], [address] pH UR 6.0 Normal 5.0 - 8.0 [facility] Comment on above: Order Comment: COLOR OF URINE MAY AFFECT DIPSTICK RESULTS.CATHETER SPECIMEN Performed By: #### L 400.0001, 00.0, 8 ####[facility] [address] [place], [address] PROT DIPSTX 30 mg/dl Abnormal Negative [facility] Comment on above: Order Comment: COLOR OF URINE MAY AFFECT DIPSTICK RESULTS.CATHETER SPECIMEN Performed By: #### L 400.0001, 00.0, 8 ####[facility] [address] [place], [address] SP.GR. DIPSTX 1.020 Normal 1.002-1.030 [facility] Comment on above: Order Comment: COLOR OF URINE MAY AFFECT DIPSTICK RESULTS.CATHETER SPECIMEN Performed By: #### L 400.0001, M100.2200, M100.678 ####[facility] [address] [place], [address] UROBILI Normal Normal Normal [facility] Comment on above: Order Comment: COLOR OF URINE MAY AFFECT DIPSTICK RESULTS.CATHETER SPECIMEN Performed By: #### L 400.0001, M100.2200, M1.678 ####[facility] [address] [place], [address] EPI,SQUAMOUS 0 SEEN Normal 5-10 [facility] Comment on above: Order Comment: COLOR OF URINE MAY AFFECT DIPSTICK RESULTS.CATHETER SPECIMEN Performed By: #### L 400.0001, M100.2200, M1.678 ####[facility] [address] [place], [address] Vancomycin, Trough Levelon 0 12-31-2023 VANCO, TROUGH 18.5 ug/mL High 5.0-15.0 [facility] Comment on above: Order Comment: 514.1 0500 Result Comment: VANC OMYCIN STANDARED DRUG THERAPY TROUGH LEVEL: 5.0 - 15.0 mg/LVANCOMYCIN HIGH INTENSITY THERAPY TROUGH LEVEL: 15.0 - 20.0 mg/LHigh Intensity therapy recommended for serious lifethreatening infections include:- Rkfxeelobk-Wdzfttcytzex-Ypealukln (Ventilator/Healtcare Associated)-SepsisPLEASE CONTACT PHARMACY SERVICES (#2202) FOR INTERPRETATIONOF RESULTS. Performed By: #### L 501.6710, L500.4050, L501.8820, L100.0100 ####[facility] [address] [place], [address] Vitamin B12on 12-31-2023 Cobalamin (Vitamin B12) [Mass/Vol] 1036 pg/mL High 211-911 [facility] Comment on above: Performed By: #### L 503.0105 ####[facility] [address] [place], [address] CBC W/Diff, Automatedon 09-2 0-4 Absolute Lymph 2.21 X10 3/uL Normal 0.83-4.51 [facility] Comment on above: Order Comment: 514-1 Performed By: #### L 500.4050, L100.0100, L501.8820, L501.6710 ####[facility] [address] [place], [address] Absolute Neut 4.9 X10 3/uL Normal 2.0-7.7 [facility] Comment on above: Order Comment: 514-1 Performed By: #### L 500.4050, L100.0100, L501.8820, L501.6710 ####[facility] [address] [place], [address] Basophils/100 WBC (Bld) 0.9 % Normal 0-1 [facility] Comment on above: Order Comment: 514-1 Performed By: #### L 500.4050, L100.0100, L501.8820, L501.6710 ####[facility] [address], [address] Eosinophils/100 WBC (Bld) 2.1 % Normal 0-5 [facility] Comment on above: Order Comment: 514-1 Performed By: #### L 500.4050, L100.0100, L501.8820, L501.6710 ####[facility] [address] [place], [address] Erythrocyte distribution width (RBC) [Ratio] 17.6 % High 11.6-14.6 [facility] Comment on above: Order Comment: 514-1 Performed By: #### L 500.4050, L100.0100, L501.8820, L501.6710 ####[facility] [address] [place], [address] Hematocrit (Bld) [Volume fraction] 32.8 % Low 37-47 [facility] Comment on above: Order Comment: 514-1 Performed By: #### L 500.4050, L100.0100, L501.8820, L501.6710 ####[facility] [address] [place], [address] Hemoglobin (Bld) [Mass/Vol] 10.0 g/dL Low 12.0-15.0 [facility] Comment on above: Order Comment: 514-1 Performed By: #### L 500.4050, L100.0100, L501.8820, L501.6710 ####[facility] [address] [place], [address] IG% 0.500 Normal 0.0-0.9 [facility] Comment on above: Order Comment: 514-1 Result Comment: IG% - Immature Granulocytes (promyelocytes, myelocytes andmetamyelocytes) > 1% indicates that a LEFT SHIFT is Present. Performed By: #### L 500.4050, L100.0100, L501.8820, L501.6710 ####[facility] [address] [place], [address] Lymphocytes/100 WBC (Bld) 27.4 % Normal 19-41 [facility] Comment on above: Order Comment: 514-1 Performed By: #### L 500.4050, L100.0100, L501.8820, L501.6710 ####[facility] [address] [place], [address] MCH (RBC) [Entitic mass] 25.9 pg Low 27.0-32.0 [facility] Comment on above: Order Comment: 514-1 Performed By: #### L 500.4050, L100.0100, L501.8820, L501.6710 ####[facility] [address] [place], [address] MCHC (RBC) [Mass/Vol] 30.5 g/dL Low 32-36 [facility] Comment on above: Order Comment: 514-1 Performed By: #### L 500.4050, L100.0100, L501.8820, L501.6710 ####[facility] [address] [place], [address] MCV (RBC) [Entitic vol] 85.0 fL Normal 81-99 [facility] Comment on above: Order Comment: 514-1 Performed By: #### L 500.4050, L100.0100, L501.8820, L501.6710 ####[facility] [address] [place], [address] Monocytes/100 WBC (Bld) 8.1 % Normal 0-10 [facility] Comment on above: Order Comment: 514-1 Performed By: #### L 500.4050, L100.0100, L501.8820, L501.6710 ####[facility] [address] [place], [address] Neutrophils/100 WBC (Bld) 61.0 % Normal 47-70 [facility] Comment on above: Order Comment: 514-1 Performed By: #### L 500.4050, L100.0100, L501.8820, L501.6710 ####[facility] [address] [place], [address] Nucleated RBC (Bld) [#/Vol] 0 10*3/uL Normal 0-5 [facility] Comment on above: Order Comment: 514-1 Performed By: #### L 500.4050, L100.0100, L501.8820, L501.6710 ####[facility] [address] [place], [address] Platelet mean volume (Bld) [Entitic vol] 9.9 fL Normal 6.2-12.0 [facility] Comment on above: Order Comment: 514-1 Performed By: #### L 500.4050, L100.0100, L501.8820, L501.6710 ####[facility] [address] [place], [address] Platelets (Bld) [#/Vol] 245 10*3/uL Normal 150-450 [facility] Comment on above: Order Comment: 514-1 Performed By: #### L 500.4050, L100.0100, L501.8820, L501.6710 ####[facility] [address] [place], [address] RBC (Bld) [#/Vol] 3.86 10*6/uL Low 4.2-5.4 [facility] Comment on above: Order Comment: 514-1 Performed By: #### L 500.4050, L100.0100, L501.8820, L501.6710 ####[facility] [address] [place], [address] RDW SD 54.4 fl High 35.1-43.9 [facility] Comment on above: Order Comment: 514-1 Performed By: #### L 500.4050, L100.0100, L501.8820, L501.6710 ####[facility] [address] [place], [address] WBC (Bld) [#/Vol] 8.1 10*3/uL Normal 4.4-11.0 [facility] Comment on above: Order Comment: 514-1 Performed By: #### L 500.4050, L100.0100, L501.8820, L501.6710 ####[facility] [address] [place], [address] CRPon 12-28-2023 C-REACTIVE PROT 39.80 mg/L High 0.0-3.0 [facility] Comment on above: Order Comment: 514-1 Result Comment: C-Re active Protein (CRP) provides useful information for thediagnosis, therapy and monitoring of inflammatory processesand associated diseases. For the evaluation of Relative Riskfor Cardiovascular Disease, a High Sensitivity CRP (HSCRP)should be ordered. Performed By: #### L 500.4050, L100.0100, L501.8820, L501.6710 ####[facility] [address] [place], [address] Comprehensive Metabolic Prof ilon 12-28-2023 Albumin [Mass/Vol] 1.4 g/dL Low 3.2-5.0 [facility] Comment on above: Order Comment: 514-1 Performed By: #### L 500.4050, L100.0100, L501.8820, L501.6710 ####[facility] [address] [place], [address] Albumin/Globulin [Mass ratio] 0.4 {ratio} Low 0.9-2.4 [facility] Comment on above: Order Comment: 514-1 Performed By: #### L 500.4050, L100.0100, L501.8820, L501.6710 ####[facility] [address] [place], [address] ALK P 140 U/L High 45-117 [facility] Comment on above: Order Comment: 514-1 Performed By: #### L 500.4050, L100.0100, L501.8820, L501.6710 ####[facility] [address] [place], [address] ALT [Catalytic activity/Vol] 13 U/L Normal 13-56 [facility] Comment on above: Order Comment: 514-1 Performed By: #### L 500.4050, L100.0100, L501.8820, L501.6710 ####[facility] [address] [place], [address] AST [Catalytic activity/Vol] 29 U/L Normal 15-37 [facility] Comment on above: Order Comment: 514-1 Result Comment: Slig ht Hemolysis, Result may be falsely increased. Performed By: #### L 500.4050, L100.0100, L501.8820, L501.6710 ####[facility] [address] [place], [address] Bilirubin [Mass/Vol] 0.30 mg/dL Normal 0.20-1.00 [facility] Comment on above: Order Comment: 514-1 Result Comment: For patients on eltrombopag therapy, use of Dimension [place] TBIL is not recommended. Performed By: #### L 500.4050, L100.0100, L501.8820, L501.6710 ####[facility] [address] [place], [address] BUN/CRE 31.4 RATIO High 10-20 [facility] Comment on above: Order Comment: 514-1 Performed By: #### L 500.4050, L100.0100, L501.8820, L501.6710 ####[facility] [address] [place], [address] CA,Total 7.5 mg/dL Low 8.5-10.1 [facility] Comment on above: Order Comment: 514-1 Performed By: #### L 500.4050, L100.0100, L501.8820, L501.6710 ####[facility] [address] [place], [address] Chloride [Moles/Vol] 105 mmol/L Normal 98-107 [facility] Comment on above: Order Comment: 514-1 Performed By: #### L 500.4050, L100.0100, L501.8820, L501.6710 ####[facility] [address] [place], [address] CO2 [Moles/Vol] 28.0 mmol/L Normal 21.0-32.0 [facility] Comment on above: Order Comment: 514-1 Performed By: #### L 500.4050, L100.0100, L501.8820, L501.6710 ####[facility] [address] [place], [address] Creatinine [Mass/Vol] 0.57 mg/dL Normal 0.55-1.02 [facility] Comment on above: Order Comment: 514-1 Result Comment: The validity of the calculated GFR GFRAA in patients over70 years has not been determined. Clinical correlation isessential. Performed By: #### L 500.4050, L100.0100, L501.8820, L501.6710 ####[facility] [address] [place], [address] EST GFR - AA 132 mL/min Normal >60 [facility] Comment on above: Order Comment: 514-1 Result Comment: Afri can Gabonese GFR Calc Performed By: #### L 500.4050, L100.0100, L501.8820, L501.6710 ####[facility] [address] [place], [address] GAP 7 Normal 5-15 [facility] Comment on above: Order Comment: 514-1 Performed By: #### L 500.4050, L100.0100, L501.8820, L501.6710 ####[facility] [address] [place], [address] GFR/1.73 sq M.predicted among non-blacks MDRD (S/P/Bld) [Vol rate/Area] 109 mL/min/{1.73_m2} Normal >60 [facility] Comment on above: Order Comment: 514-1 Result Comment: Non- GFR Calc Performed By: #### L 500.4050, L100.0100, L501.8820, L501.6710 ####[facility] [address] [place], [address] Globulin (S) [Mass/Vol] 3.3 g/dL Normal 2.2-4.2 [facility] Comment on above: Order Comment: 514-1 Performed By: #### L 500.4050, L100.0100, L501.8820, L501.6710 ####[facility] [address] [place], [address] Glucose [Mass/Vol] 106 mg/dL Normal 74-106 [facility] Comment on above: Order Comment: 514- Result Comment: Fast ing Glucose result from 100 to 125 mg/dLsuggests IMPAIRED HOMEOSTASIS per A.D.A. criteria. Performed By: #### L 500.4050, L100.0100, L501.8820, L501.6710 ####[facility] [address] [place], [address] Potassium [Moles/Vol] 2.7 mmol/L Invalid Interpretation Code 3.5-5.1 [facility] Comment on above: Order Comment: 514-1 Result Comment: Slig ht Hemolysis, Result may be falsely increased.CriticalResult(s) Called at: 08:46:14 12/28/2023 by: Jeri Duong. Results read back by same. Performed By: #### L 500.4050, L100.0100, L501.8820, L501.6710 ####[facility] [address] [place], [address] Sodium [Moles/Vol] 140 mmol/L Normal 136-145 [facility] Comment on above: Order Comment: 514-1 Performed By: #### L 500.4050, L100.0100, L501.8820, L501.6710 ####[facility] [address] [place], [address] T PROT 4.7 g/dL Low 6.4-8.2 [facility] Comment on above: Order Comment: 514-1 Performed By: #### L 500.4050, L100.0100, L501.8820, L501.6710 ####[facility] [address] [place], [address] Urea nitrogen [Mass/Vol] 18 mg/dL Normal 7-18 [facility] Comment on above: Order Comment: 514-1 Performed By: #### L 500.4050, L100.0100, L501.8820, L501.6710 ####[facility] [address] [place], [address] Vancomycin, Trough Levelon 0 - VANCO, TROUGH 12.8 ug/mL Normal 5.0-15.0 [facility] Comment on above: Order Comment: 514-1 0730 Result Comment: VANC OMYCIN STANDARED DRUG THERAPY TROUGH LEVEL: 5.0 - 15.0 mg/LVANCOMYCIN HIGH INTENSITY THERAPY TROUGH LEVEL: 15.0 - 20.0 mg/LHigh Intensity therapy recommended for serious lifethreatening infections include:- Wejfhkweiq-Tdhnqogsfhmz-Ivyxjlydd (Ventilator/Healtcare Associated)-SepsisPLEASE CONTACT PHARMACY SERVICES (#1428) FOR INTERPRETATIONOF RESULTS. Performed By: #### L 500.4050, L100.0100, L501.8820, L501.6710 ####[facility] [address] [place], [address] CBC W/Diff, Automatedon - Absolute Lymph 1.74 X10 3/uL Normal 0.83-4.51 [facility] Comment on above: Order Comment: 514.1 Performed By: #### L 500.4050, L501.8820, L100.0100, L501.6710 ####[facility] [address] [place], [address] Absolute Neut 5.8 X10 3/uL Normal 2.0-7.7 [facility] Comment on above: Order Comment: 514.1 Performed By: #### L 500.4050, L501.8820, L100.0100, L501.6710 ####[facility] [address] [place], [address] Basophils/100 WBC (Bld) 1.0 % Normal 0-1 [facility] Comment on above: Order Comment: 514.1 Performed By: #### L 500.4050, L501.8820, L100.0100, L501.6710 ####[facility] [address] [place], [address] Eosinophils/100 WBC (Bld) 1.4 % Normal 0-5 [facility] Comment on above: Order Comment: 514.1 Performed By: #### L 500.4050, L501.8820, L100.0100, L501.6710 ####[facility] [address] [place], [address] Erythrocyte distribution width (RBC) [Ratio] 17.6 % High 11.6-14.6 [facility] Comment on above: Order Comment: 514.1 Performed By: #### L 500.4050, L501.8820, L100.0100, L501.6710 ####[facility] [address] [place], [address] Hematocrit (Bld) [Volume fraction] 36.1 % Low 37-47 [facility] Comment on above: Order Comment: 514.1 Performed By: #### L 500.4050, L501.8820, L100.0100, L501.6710 ####[facility] [address] [place], [address] Hemoglobin (Bld) [Mass/Vol] 10.5 g/dL Low 12.0-15.0 [facility] Comment on above: Order Comment: 514.1 Performed By: #### L 500.4050, L501.8820, L100.0100, L501.6710 ####[facility] [address] [place], [address] IG% 0.400 Normal 0.0-0.9 [facility] Comment on above: Order Comment: 514.1 Result Comment: IG% - Immature Granulocytes (promyelocytes, myelocytes andmetamyelocytes) > 1% indicates that a LEFT SHIFT is Present. Performed By: #### L 500.4050, L501.8820, L100.0100, L501.6710 ####[facility] [address] [place], [address] Lymphocytes/100 WBC (Bld) 20.8 % Normal 19-41 [facility] Comment on above: Order Comment: 514.1 Performed By: #### L 500.4050, L501.8820, L100.0100, L501.6710 ####[facility] [address] [place], [address] MCH (RBC) [Entitic mass] 25.9 pg Low 27.0-32.0 [facility] Comment on above: Order Comment: 514.1 Performed By: #### L 500.4050, L501.8820, L100.0100, L501.6710 ####[facility] [address] [place], [address] MCHC (RBC) [Mass/Vol] 29.1 g/dL Low 32-36 [facility] Comment on above: Order Comment: 514.1 Performed By: #### L 500.4050, L501.8820, L100.0100, L501.6710 ####[facility] [address] [place], [address] MCV (RBC) [Entitic vol] 88.9 fL Normal 81-99 [facility] Comment on above: Order Comment: 514.1 Performed By: #### L 500.4050, L501.8820, L100.0100, L501.6710 ####[facility] [address] [place], [address] Monocytes/100 WBC (Bld) 6.9 % Normal 0-10 [facility] Comment on above: Order Comment: 514.1 Performed By: #### L 500.4050, L501.8820, L100.0100, L501.6710 ####[facility] [address] [place], [address] Neutrophils/100 WBC (Bld) 69.5 % Normal 47-70 [facility] Comment on above: Order Comment: 514.1 Performed By: #### L 500.4050, L501.8820, L100.0100, L501.6710 ####[facility] [address] [place], [address] Nucleated RBC (Bld) [#/Vol] 0 10*3/uL Normal 0-5 [facility] Comment on above: Order Comment: 514.1 Performed By: #### L 500.4050, L501.8820, L100.0100, L501.6710 ####[facility] [address] [place], [address] Platelet mean volume (Bld) [Entitic vol] 10.0 fL Normal 6.2-12.0 [facility] Comment on above: Order Comment: 514.1 Performed By: #### L 500.4050, L501.8820, L100.0100, L501.6710 ####[facility] [address] [place], [address] Platelets (Bld) [#/Vol] 195 10*3/uL Normal 150-450 [facility] Comment on above: Order Comment: 514.1 Performed By: #### L 500.4050, L501.8820, L100.0100, L501.6710 ####[facility] [address] [place], [address] RBC (Bld) [#/Vol] 4.06 10*6/uL Low 4.2-5.4 [facility] Comment on above: Order Comment: 514.1 Performed By: #### L 500.4050, L501.8820, L100.0100, L501.6710 ####[facility] [address] [place], [address] RDW SD 57.0 fl High 35.1-43.9 [facility] Comment on above: Order Comment: 514.1 Performed By: #### L 500.4050, L501.8820, L100.0100, L501.6710 ####[facility] [address] [place], [address] WBC (Bld) [#/Vol] 8.4 10*3/uL Normal 4.4-11.0 [facility] Comment on above: Order Comment: 514.1 Performed By: #### L 500.4050, L501.8820, L100.0100, L501.6710 ####[facility] [address] [place], [address] CRPon 12-25-2023 C-REACTIVE PROT 80.80 mg/L High 0.0-3.0 [facility] Comment on above: Order Comment: 514.1 Result Comment: C-Re active Protein (CRP) provides useful information for thediagnosis, therapy and monitoring of inflammatory processesand associated diseases. For the evaluation of Relative Riskfor Cardiovascular Disease, a High Sensitivity CRP (HSCRP)should be ordered. Performed By: #### L 500.4050, L501.8820, L100.0100, L501.6710 ####[facility] [address] [place], [address] Comprehensive Metabolic Prof ilon 12-25-2023 Albumin [Mass/Vol] 1.2 g/dL Low 3.2-5.0 [facility] Comment on above: Order Comment: 514.1 Performed By: #### L 500.4050, L501.8820, L100.0100, L501.6710 ####[facility] [address] [place], [address] Albumin/Globulin [Mass ratio] 0.3 {ratio} Low 0.9-2.4 [facility] Comment on above: Order Comment: 514.1 Performed By: #### L 500.4050, L501.8820, L100.0100, L501.6710 ####[facility] [address] [place], [address] ALK P 144 U/L High 45-117 [facility] Comment on above: Order Comment: 514.1 Performed By: #### L 500.4050, L501.8820, L100.0100, L501.6710 ####[facility] [address] [place], [address] ALT [Catalytic activity/Vol] 12 U/L Low 13-56 [facility] Comment on above: Order Comment: 514.1 Performed By: #### L 500.4050, L501.8820, L100.0100, L501.6710 ####[facility] [address] [place], [address] AST [Catalytic activity/Vol] 26 U/L Normal 15-37 [facility] Comment on above: Order Comment: 514.1 Performed By: #### L 500.4050, L501.8820, L100.0100, L501.6710 ####[facility] [address] [place], [address] Bilirubin [Mass/Vol] 0.30 mg/dL Normal 0.20-1.00 [facility] Comment on above: Order Comment: 514.1 Result Comment: For patients on eltrombopag therapy, use of Dimension [place] TBIL is not recommended. Performed By: #### L 500.4050, L501.8820, L100.0100, L501.6710 ####[facility] [address] [place], [address] BUN/CRE 33.3 RATIO High 10-20 [facility] Comment on above: Order Comment: 514.1 Performed By: #### L 500.4050, L501.8820, L100.0100, L501.6710 ####[facility] [address] [place], [address] CA,Total 7.3 mg/dL Low 8.5-10.1 [facility] Comment on above: Order Comment: 514.1 Performed By: #### L 500.4050, L501.8820, L100.0100, L501.6710 ####[facility] [address] [place], [address] Chloride [Moles/Vol] 104 mmol/L Normal 98-107 [facility] Comment on above: Order Comment: 514.1 Performed By: #### L 500.4050, L501.8820, L100.0100, L501.6710 ####[facility] [address] [place], [address] CO2 [Moles/Vol] 26.0 mmol/L Normal 21.0-32.0 [facility] Comment on above: Order Comment: 514.1 Performed By: #### L 500.4050, L501.8820, L100.0100, L501.6710 ####[facility] [address] [place], [address] Creatinine [Mass/Vol] 0.54 mg/dL Low 0.55-1.02 [facility] Comment on above: Order Comment: 514.1 Result Comment: The validity of the calculated GFR GFRAA in patients over70 years has not been determined. Clinical correlation isessential. Performed By: #### L 500.4050, L501.8820, L100.0100, L501.6710 ####[facility] [address] [place], [address] EST GFR - AA 141 mL/min Normal >60 [facility] Comment on above: Order Comment: 514.1 Result Comment: Afri can Gabonese GFR Calc Performed By: #### L 500.4050, L501.8820, L100.0100, L501.6710 ####[facility] [address] [place], [address] GAP 7 Normal 5-15 [facility] Comment on above: Order Comment: 514.1 Performed By: #### L 500.4050, L501.8820, L100.0100, L501.6710 ####[facility] [address] [place], [address] GFR/1.73 sq M.predicted among non-blacks MDRD (S/P/Bld) [Vol rate/Area] 117 mL/min/{1.73_m2} Normal >60 [facility] Comment on above: Order Comment: 514.1 Result Comment: Non- GFR Calc Performed By: #### L 500.4050, L501.8820, L100.0100, L501.6710 ####[facility] [address] [place], [address] Globulin (S) [Mass/Vol] 3.5 g/dL Normal 2.2-4.2 [facility] Comment on above: Order Comment: 514.1 Performed By: #### L 500.4050, L501.8820, L100.0100, L501.6710 ####[facility] [address] [place], [address] Glucose [Mass/Vol] 67 mg/dL Low 74-106 [facility] Comment on above: Order Comment: 514.1 Performed By: #### L 500.4050, L501.8820, L100.0100, L501.6710 ####[facility] [address] [place], [address] Potassium [Moles/Vol] 3.1 mmol/L Low 3.5-5.1 [facility] Comment on above: Order Comment: 514.1 Performed By: #### L 500.4050, L501.8820, L100.0100, L501.6710 ####[facility] [address] [place], [address] Sodium [Moles/Vol] 137 mmol/L Normal 136-145 [facility] Comment on above: Order Comment: 514.1 Performed By: #### L 500.4050, L501.8820, L100.0100, L501.6710 ####[facility] [address] [place], [address] T PROT 4.7 g/dL Low 6.4-8.2 [facility] Comment on above: Order Comment: 514.1 Performed By: #### L 500.4050, L501.8820, L100.0100, L501.6710 ####[facility] [address] [place], [address] Urea nitrogen [Mass/Vol] 18 mg/dL Normal 7-18 [facility] Comment on above: Order Comment: 514.1 Performed By: #### L 500.4050, L501.8820, L100.0100, L501.6710 ####[facility] [address] [place], [address] Vancomycin, Trough Levelon 0 - VANCO, TROUGH 19.3 ug/mL High 5.0-15.0 [facility] Comment on above: Order Comment: 514.1 0500 Result Comment: VANC OMYCIN STANDARED DRUG THERAPY TROUGH LEVEL: 5.0 - 15.0 mg/LVANCOMYCIN HIGH INTENSITY THERAPY TROUGH LEVEL: 15.0 - 20.0 mg/LHigh Intensity therapy recommended for serious lifethreatening infections include:- Qvqkrqsunh-Mdwfddzeficx-Eakzhyohj (Ventilator/Healtcare Associated)-SepsisPLEASE CONTACT PHARMACY SERVICES (#7181) FOR INTERPRETATIONOF RESULTS. Performed By: #### L 500.4050, L501.8820, L100.0100, L501.6710 ####[facility] [address] [place], [address] Basic Metabolic Profile (BMP )on 12-24-2023 BUN/CRE 28.6 RATIO High 10-20 [facility] Comment on above: Order Comment: 514-1 Performed By: #### L 500.2500 ####[facility] [address] [place], [address] CA,Total 7.4 mg/dL Low 8.5-10.1 [facility] Comment on above: Order Comment: 514-1 Performed By: #### L 500.2500 ####[facility] [address] [place], [address] Chloride [Moles/Vol] 104 mmol/L Normal 98-107 [facility] Comment on above: Order Comment: 514-1 Performed By: #### L 500.2500 ####[facility] [address] [place], [address] CO2 [Moles/Vol] 27.0 mmol/L Normal 21.0-32.0 [facility] Comment on above: Order Comment: 514-1 Performed By: #### L 500.2500 ####[facility] [address] [place], [address] Creatinine [Mass/Vol] 0.56 mg/dL Normal 0.55-1.02 [facility] Comment on above: Order Comment: 514-1 Result Comment: The validity of the calculated GFR GFRAA in patients over70 years has not been determined. Clinical correlation isessential. Performed By: #### L 500.2500 ####[facility] [address] [place], [address] EST GFR - AA 136 mL/min Normal >60 [facility] Comment on above: Order Comment: 514-1 Result Comment: Afri can Gabonese GFR Calc Performed By: #### L 500.2500 ####[facility] [address] [place], [address] GAP 6 Normal 5-15 [facility] Comment on above: Order Comment: 514-1 Performed By: #### L 500.2500 ####[facility] [address] [place], [address] GFR/1.73 sq M.predicted among non-blacks MDRD (S/P/Bld) [Vol rate/Area] 112 mL/min/{1.73_m2} Normal >60 [facility] Comment on above: Order Comment: 514- Result Comment: Non- GFR Calc Performed By: #### L 500.2500 ####[facility] [address] [place], [address] Glucose [Mass/Vol] 82 mg/dL Normal 74-106 [facility] Comment on above: Order Comment: 514-1 Performed By: #### L 500.2500 ####[facility] [address] [place], [address] Potassium [Moles/Vol] 3.0 mmol/L Low 3.5-5.1 [facility] Comment on above: Order Comment: 514-1 Result Comment: Slig ht Hemolysis, Result may be falsely increased. Performed By: #### L 500.2500 ####[facility] [address] [place], [address] Sodium [Moles/Vol] 137 mmol/L Normal 136-145 [facility] Comment on above: Order Comment: 514-1 Performed By: #### L 500.2500 ####[facility] [address] [place], [address] Urea nitrogen [Mass/Vol] 16 mg/dL Normal 7-18 [facility] Comment on above: Order Comment: 514-1 Performed By: #### L 500.2500 ####[facility] [address] [place], [address] Vancomycin, Trough Levelon 0 12-19-2023 VANCO, TROUGH 16.8 ug/mL High 5.0-15.0 [facility] Comment on above: Order Comment: 514-1 0800 Result Comment: VANC OMYCIN STANDARED DRUG THERAPY TROUGH LEVEL: 5.0 - 15.0 mg/LVANCOMYCIN HIGH INTENSITY THERAPY TROUGH LEVEL: 15.0 - 20.0 mg/LHigh Intensity therapy recommended for serious lifethreatening infections include:- Levgtxkydl-Lgsfjjvzssrb-Stqskirrw (Ventilator/Healtcare Associated)-SepsisPLEASE CONTACT PHARMACY SERVICES (#2303) FOR INTERPRETATIONOF RESULTS. Performed By: #### L 501.8820 ####[facility] [address] [place], [address] CBC W/Diff, Automatedon 12-08 Absolute Lymph 2.08 X10 3/uL Normal 0.83-4.51 [facility] Comment on above: Order Comment: 514-1 Performed By: #### L 501.8820, L100.0100, L500.4050, L501.6710 ####[facility] [address] [place], [address] Absolute Neut 6.8 X10 3/uL Normal 2.0-7.7 [facility] Comment on above: Order Comment: 514-1 Performed By: #### L 501.8820, L100.0100, L500.4050, L501.6710 ####[facility] [address] [place], [address] Basophils/100 WBC (Bld) 0.5 % Normal 0-1 [facility] Comment on above: Order Comment: 514-1 Performed By: #### L 501.8820, L100.0100, L500.4050, L501.6710 ####[facility] [address] [place], [address] Eosinophils/100 WBC (Bld) 1.1 % Normal 0-5 [facility] Comment on above: Order Comment: 514-1 Performed By: #### L 501.8820, L100.0100, L500.4050, L501.6710 ####[facility] [address] [place], [address] Erythrocyte distribution width (RBC) [Ratio] 16.9 % High 11.6-14.6 [facility] Comment on above: Order Comment: 514-1 Performed By: #### L 501.8820, L100.0100, L500.4050, L501.6710 ####[facility] [address] [place], [address] Hematocrit (Bld) [Volume fraction] 33.0 % Low 37-47 [facility] Comment on above: Order Comment: 514-1 Performed By: #### L 501.8820, L100.0100, L500.4050, L501.6710 ####[facility] [address] [place], [address] Hemoglobin (Bld) [Mass/Vol] 9.9 g/dL Low 12.0-15.0 [facility] Comment on above: Order Comment: 514-1 Performed By: #### L 501.8820, L100.0100, L500.4050, L501.6710 ####[facility] [address] [place], [address] IG% 0.600 Normal 0.0-0.9 [facility] Comment on above: Order Comment: 514-1 Result Comment: IG% - Immature Granulocytes (promyelocytes, myelocytes andmetamyelocytes) > 1% indicates that a LEFT SHIFT is Present. Performed By: #### L 501.8820, L100.0100, L500.4050, L501.6710 ####[facility] [address] [place], [address] Lymphocytes/100 WBC (Bld) 21.5 % Normal 19-41 [facility] Comment on above: Order Comment: 514-1 Performed By: #### L 501.8820, L100.0100, L500.4050, L501.6710 ####[facility] [address] [place], [address] MCH (RBC) [Entitic mass] 25.3 pg Low 27.0-32.0 [facility] Comment on above: Order Comment: 514-1 Performed By: #### L 501.8820, L100.0100, L500.4050, L501.6710 ####[facility] [address] [place], [address] MCHC (RBC) [Mass/Vol] 30.0 g/dL Low 32-36 [facility] Comment on above: Order Comment: 514-1 Performed By: #### L 501.8820, L100.0100, L500.4050, L501.6710 ####[facility] [address] [place], [address] MCV (RBC) [Entitic vol] 84.4 fL Normal 81-99 [facility] Comment on above: Order Comment: 514-1 Performed By: #### L 501.8820, L100.0100, L500.4050, L501.6710 ####[facility] [address] [place], [address] Monocytes/100 WBC (Bld) 6.1 % Normal 0-10 [facility] Comment on above: Order Comment: 514-1 Performed By: #### L 501.8820, L100.0100, L500.4050, L501.6710 ####[facility] [address] [place], [address] Neutrophils/100 WBC (Bld) 70.2 % High 47-70 [facility] Comment on above: Order Comment: 514-1 Performed By: #### L 501.8820, L100.0100, L500.4050, L501.6710 ####[facility] [address] [place], [address] Nucleated RBC (Bld) [#/Vol] 0 10*3/uL Normal 0-5 [facility] Comment on above: Order Comment: 514-1 Performed By: #### L 501.8820, L100.0100, L500.4050, L501.6710 ####[facility] [address] [place], [address] Platelet mean volume (Bld) [Entitic vol] 9.5 fL Normal 6.2-12.0 [facility] Comment on above: Order Comment: 514-1 Performed By: #### L 501.8820, L100.0100, L500.4050, L501.6710 ####[facility] [address] [place], [address] Platelets (Bld) [#/Vol] 236 10*3/uL Normal 150-450 [facility] Comment on above: Order Comment: 514-1 Performed By: #### L 501.8820, L100.0100, L500.4050, L501.6710 ####[facility] [address] [place], [address] RBC (Bld) [#/Vol] 3.91 10*6/uL Low 4.2-5.4 [facility] Comment on above: Order Comment: 514-1 Performed By: #### L 501.8820, L100.0100, L500.4050, L501.6710 ####[facility] [address] [place], [address] RDW SD 52.0 fl High 35.1-43.9 [facility] Comment on above: Order Comment: 514-1 Performed By: #### L 501.8820, L100.0100, L500.4050, L501.6710 ####[facility] [address] [place], [address] WBC (Bld) [#/Vol] 9.7 10*3/uL Normal 4.4-11.0 [facility] Comment on above: Order Comment: 514-1 Performed By: #### L 501.8820, L100.0100, L500.4050, L501.6710 ####[facility] [address] [place], [address] CRPon 12-18-2023 C-REACTIVE PROT 37.20 mg/L High 0.0-3.0 [facility] Comment on above: Order Comment: 514-1 Result Comment: C-Re active Protein (CRP) provides useful information for thediagnosis, therapy and monitoring of inflammatory processesand associated diseases. For the evaluation of Relative Riskfor Cardiovascular Disease, a High Sensitivity CRP (HSCRP)should be ordered. Performed By: #### L 501.8820, L100.0100, L500.4050, L501.6710 ####[facility] [address] [place], [address] Comprehensive Metabolic Prof ilon 12-18-2023 Albumin [Mass/Vol] 1.5 g/dL Low 3.2-5.0 [facility] Comment on above: Order Comment: 514-1 Performed By: #### L 501.8820, L100.0100, L500.4050, L501.6710 ####[facility] [address] [place], [address] Albumin/Globulin [Mass ratio] 0.4 {ratio} Low 0.9-2.4 [facility] Comment on above: Order Comment: 514-1 Performed By: #### L 501.8820, L100.0100, L500.4050, L501.6710 ####[facility] [address] [place], [address] ALK P 150 U/L High 45-117 [facility] Comment on above: Order Comment: 514-1 Performed By: #### L 501.8820, L100.0100, L500.4050, L501.6710 ####[facility] [address] [place], [address] ALT [Catalytic activity/Vol] 14 U/L Normal 13-56 [facility] Comment on above: Order Comment: 514-1 Performed By: #### L 501.8820, L100.0100, L500.4050, L501.6710 ####[facility] [address] [place], [address] AST [Catalytic activity/Vol] 22 U/L Normal 15-37 [facility] Comment on above: Order Comment: 514-1 Performed By: #### L 501.8820, L100.0100, L500.4050, L501.6710 ####[facility] [address] [place], [address] Bilirubin [Mass/Vol] 0.20 mg/dL Normal 0.20-1.00 [facility] Comment on above: Order Comment: 514-1 Result Comment: For patients on eltrombopag therapy, use of Dimension [place] TBIL is not recommended. Performed By: #### L 501.8820, L100.0100, L500.4050, L501.6710 ####[facility] [address] [place], [address] BUN/CRE 25.2 RATIO High 10-20 [facility] Comment on above: Order Comment: 514-1 Performed By: #### L 501.8820, L100.0100, L500.4050, L501.6710 ####[facility] [address] [place], [address] CA,Total 7.6 mg/dL Low 8.5-10.1 [facility] Comment on above: Order Comment: 514-1 Performed By: #### L 501.8820, L100.0100, L500.4050, L501.6710 ####[facility] [address] [place], [address] Chloride [Moles/Vol] 105 mmol/L Normal 98-107 [facility] Comment on above: Order Comment: 514-1 Performed By: #### L 501.8820, L100.0100, L500.4050, L501.6710 ####[facility] [address] [place], [address] CO2 [Moles/Vol] 28.0 mmol/L Normal 21.0-32.0 [facility] Comment on above: Order Comment: 514-1 Performed By: #### L 501.8820, L100.0100, L500.4050, L501.6710 ####[facility] [address] [place], [address] Creatinine [Mass/Vol] 0.56 mg/dL Normal 0.55-1.02 [facility] Comment on above: Order Comment: 514-1 Result Comment: The validity of the calculated GFR GFRAA in patients over70 years has not been determined. Clinical correlation isessential. Performed By: #### L 501.8820, L100.0100, L500.4050, L501.6710 ####[facility] [address] [place], [address] EST GFR - AA 137 mL/min Normal >60 [facility] Comment on above: Order Comment: 514-1 Result Comment: Afri can Gabonese GFR Calc Performed By: #### L 501.8820, L100.0100, L500.4050, L501.6710 ####[facility] [address] [place], [address] GAP 5 Normal 5-15 [facility] Comment on above: Order Comment: 514-1 Performed By: #### L 501.8820, L100.0100, L500.4050, L501.6710 ####[facility] [address] [place], [address] GFR/1.73 sq M.predicted among non-blacks MDRD (S/P/Bld) [Vol rate/Area] 113 mL/min/{1.73_m2} Normal >60 [facility] Comment on above: Order Comment: 514-1 Result Comment: Non- GFR Calc Performed By: #### L 501.8820, L100.0100, L500.4050, L501.6710 ####[facility] [address] [place], [address] Globulin (S) [Mass/Vol] 3.4 g/dL Normal 2.2-4.2 [facility] Comment on above: Order Comment: 514-1 Performed By: #### L 501.8820, L100.0100, L500.4050, L501.6710 ####[facility] [address] [place], [address] Glucose [Mass/Vol] 96 mg/dL Normal 74-106 [facility] Comment on above: Order Comment: 514-1 Performed By: #### L 501.8820, L100.0100, L500.4050, L501.6710 ####[facility] [address] [place], [address] Potassium [Moles/Vol] 2.8 mmol/L Low 3.5-5.1 [facility] Comment on above: Order Comment: 514-1 Performed By: #### L 501.8820, L100.0100, L500.4050, L501.6710 ####[facility] [address] [place], [address] Sodium [Moles/Vol] 138 mmol/L Normal 136-145 [facility] Comment on above: Order Comment: 514-1 Performed By: #### L 501.8820, L100.0100, L500.4050, L501.6710 ####[facility] [address] [place], [address] T PROT 4.9 g/dL Low 6.4-8.2 [facility] Comment on above: Order Comment: 514-1 Performed By: #### L 501.8820, L100.0100, L500.4050, L501.6710 ####[facility] [address] [place], [address] Urea nitrogen [Mass/Vol] 14 mg/dL Normal 7-18 [facility] Comment on above: Order Comment: 514-1 Performed By: #### L 501.8820, L100.0100, L500.4050, L501.6710 ####[facility] [address] [place], [address] Vancomycin, Trough Levelon 0 12-18-2023 VANCO, TROUGH 22.0 ug/mL High 5.0-15.0 [facility] Comment on above: Order Comment: 514-1 4330 Result Comment: VANC OMYCIN STANDARED DRUG THERAPY TROUGH LEVEL: 5.0 - 15.0 mg/LVANCOMYCIN HIGH INTENSITY THERAPY TROUGH LEVEL: 15.0 - 20.0 mg/LHigh Intensity therapy recommended for serious lifethreatening infections include:- Tjkcczgmaa-Azksrdjfnjsl-Szmxkgyvg (Ventilator/Healtcare Associated)-SepsisPLEASE CONTACT PHARMACY SERVICES (#4042) FOR INTERPRETATIONOF RESULTS. Performed By: #### L 501.8820, L100.0100, L500.4050, L501.6710 ####[facility] [address] [place], [address] Emergency Department Summary on 12-17-2023 Emergency Department Summary Normal [facility] Vancomycin, Random Levelon 0 12-12-2023 VANCO, RANDOM 15.9 ug/mL High 0.0-15.0 [facility] Comment on above: Order Comment: 514.1 Result Comment: VANC OMYCIN STANDARD DRUG THERAPY: CRITICAL VALUE IS > 15.0 mg/LVANCOMYCIN HIGH INTENSITY THERAPY: CRITICAL VALUE IS > 20.0 mg/LPLEASE CONTACT PHARMACY SERVICES (#1304) FOR INTERPRETATIONOF RESULTS. THIS RESULT DOES NOT REPRESENT A PEAK OR TROUGHLEVEL FOR THIS DRUG. Performed By: #### L 501.8850 ####[facility] [address] [place], [address] CBC W/Diff, Automatedon 09-0 3-2023 Absolute Lymph 2.12 X10 3/uL Normal 0.83-4.51 [facility] Comment on above: Order Comment: 514.1 Performed By: #### L 501.6710, L100.0100, L500.4050, L501.8820, L501.9520 ####[facility] [address] [place], [address] Absolute Neut 8.2 X10 3/uL High 2.0-7.7 [facility] Comment on above: Order Comment: 514.1 Performed By: #### L 501.6710, L100.0100, L500.4050, L501.8820, L501.9520 ####[facility] [address] [place], [address] Basophils/100 WBC (Bld) 0.4 % Normal 0-1 [facility] Comment on above: Order Comment: 514.1 Performed By: #### L 501.6710, L100.0100, L500.4050, L501.8820, L501.9520 ####[facility] [address] [place], [address] Eosinophils/100 WBC (Bld) 1.5 % Normal 0-5 [facility] Comment on above: Order Comment: 514.1 Performed By: #### L 501.6710, L100.0100, L500.4050, L501.8820, L501.9520 ####[facility] [address] [place], [address] Erythrocyte distribution width (RBC) [Ratio] 17.1 % High 11.6-14.6 [facility] Comment on above: Order Comment: 514.1 Performed By: #### L 501.6710, L100.0100, L500.4050, L501.8820, L501.9520 ####[facility] [address] [place], [address] Hematocrit (Bld) [Volume fraction] 33.2 % Low 37-47 [facility] Comment on above: Order Comment: 514.1 Performed By: #### L 501.6710, L100.0100, L500.4050, L501.8820, L501.9520 ####[facility] [address] [place], [address] Hemoglobin (Bld) [Mass/Vol] 10.0 g/dL Low 12.0-15.0 [facility] Comment on above: Order Comment: 514.1 Performed By: #### L 501.6710, L100.0100, L500.4050, L501.8820, [id number] ####[facility] [address] [place], [address] IG% 1.200 High 0.0-0.9 [facility] Comment on above: Order Comment: 514.1 Result Comment: IG% - Immature Granulocytes (promyelocytes, myelocytes andmetamyelocytes) > 1% indicates that a LEFT SHIFT is Present. Performed By: #### L 501.6710, L100.0100, L500.4050, L501.8820, L501.9520 ####[facility] [address] [place], [address] Lymphocytes/100 WBC (Bld) 18.8 % Low 19-41 [facility] Comment on above: Order Comment: 514.1 Performed By: #### L 501.6710, L100.0100, L500.4050, L501.8820, L501.9520 ####[facility] [address] [place], [address] MCH (RBC) [Entitic mass] 25.4 pg Low 27.0-32.0 [facility] Comment on above: Order Comment: 514.1 Performed By: #### L 501.6710, L100.0100, L500.4050, L501.8820, L501.9520 ####[facility] [address] [place], [address] MCHC (RBC) [Mass/Vol] 30.1 g/dL Low 32-36 [facility] Comment on above: Order Comment: 514.1 Performed By: #### L 501.6710, L100.0100, L500.4050, L501.8820, L501.9520 ####[facility] [address] [place], [address] MCV (RBC) [Entitic vol] 84.5 fL Normal 81-99 [facility] Comment on above: Order Comment: 514.1 Performed By: #### L 501.6710, L100.0100, L500.4050, L501.8820, L501.9520 ####[facility] [address] [place], [address] Monocytes/100 WBC (Bld) 5.9 % Normal 0-10 [facility] Comment on above: Order Comment: 514.1 Performed By: #### L 501.6710, L100.0100, L500.4050, L501.8820, L501.9520 ####[facility] [address] [place], [address] Neutrophils/100 WBC (Bld) 72.2 % High 47-70 [facility] Comment on above: Order Comment: 514.1 Performed By: #### L 501.6710, L100.0100, L500.4050, L501.8820, L501.9520 ####[facility] [address] [place], [address] Nucleated RBC (Bld) [#/Vol] 0 10*3/uL Normal 0-5 [facility] Comment on above: Order Comment: 514.1 Performed By: #### L 501.6710, L100.0100, L500.4050, L501.8820, L501.9520 ####[facility] [address] [place], [address] Platelet mean volume (Bld) [Entitic vol] 9.5 fL Normal 6.2-12.0 [facility] Comment on above: Order Comment: 514.1 Performed By: #### L 501.6710, L100.0100, L500.4050, L501.8820, L501.9520 ####[facility] [address] [place], [address] Platelets (Bld) [#/Vol] 254 10*3/uL Normal 150-450 [facility] Comment on above: Order Comment: 514.1 Performed By: #### L 501.6710, L100.0100, L500.4050, L501.8820, L501.9520 ####[facility] [address] [place], [address] RBC (Bld) [#/Vol] 3.93 10*6/uL Low 4.2-5.4 [facility] Comment on above: Order Comment: 514.1 Performed By: #### L 501.6710, L100.0100, L500.4050, L501.8820, L501.9520 ####[facility] [address] [place], [address] RDW SD 53.3 fl High 35.1-43.9 [facility] Comment on above: Order Comment: 514.1 Performed By: #### L 501.6710, L100.0100, L500.4050, L501.8820, L501.9520 ####[facility] [address] [place], [address] WBC (Bld) [#/Vol] 11.3 10*3/uL High 4.4-11.0 [facility] Comment on above: Order Comment: 514.1 Performed By: #### L 501.6710, L100.0100, L500.4050, L501.8820, L501.9520 ####[facility] [address] [place], [address] CRPon 12-11-2023 C-REACTIVE PROT 75.80 mg/L High 0.0-3.0 [facility] Comment on above: Order Comment: 514.1 Result Comment: C-Re active Protein (CRP) provides useful information for thediagnosis, therapy and monitoring of inflammatory processesand associated diseases. For the evaluation of Relative Riskfor Cardiovascular Disease, a High Sensitivity CRP (HSCRP)should be ordered. Performed By: #### L 501.6710, L100.0100, L500.4050, L501.8820, L501.9520 ####[facility] [address] [place], [address] Comprehensive Metabolic Prof ilon 12-11-2023 Albumin [Mass/Vol] 1.7 g/dL Low 3.2-5.0 [facility] Comment on above: Order Comment: 514.1 Performed By: #### L 501.6710, L100.0100, L500.4050, L501.8820, L501.9520 ####[facility] [address] [place], [address] Albumin/Globulin [Mass ratio] 0.4 {ratio} Low 0.9-2.4 [facility] Comment on above: Order Comment: 514.1 Performed By: #### L 501.6710, L100.0100, L500.4050, L501.8820, L501.9520 ####[facility] [address] [place], [address] ALK P 163 U/L High 45-117 [facility] Comment on above: Order Comment: 514.1 Performed By: #### L 501.6710, L100.0100, L500.4050, L501.8820, L501.9520 ####[facility] [address] [place], [address] ALT [Catalytic activity/Vol] 14 U/L Normal 13-56 [facility] Comment on above: Order Comment: 514.1 Performed By: #### L 501.6710, L100.0100, L500.4050, L501.8820, L501.9520 ####[facility] [address] [place], [address] AST [Catalytic activity/Vol] 21 U/L Normal 15-37 [facility] Comment on above: Order Comment: 514.1 Performed By: #### L 501.6710, L100.0100, L500.4050, L501.8820, L501.9520 ####[facility] [address] [place], [address] Bilirubin [Mass/Vol] 0.30 mg/dL Normal 0.20-1.00 [facility] Comment on above: Order Comment: 514.1 Result Comment: For patients on eltrombopag therapy, use of Dimension [place] TBIL is not recommended. Performed By: #### L 501.6710, L100.0100, L500.4050, L501.8820, L501.9520 ####[facility] [address] [place], [address] BUN/CRE 25.6 RATIO High 10-20 [facility] Comment on above: Order Comment: 514.1 Performed By: #### L 501.6710, L100.0100, L500.4050, L501.8820, L501.9520 ####[facility] [address] [place], [address] CA,Total 7.9 mg/dL Low 8.5-10.1 [facility] Comment on above: Order Comment: 514.1 Performed By: #### L 501.6710, L100.0100, L500.4050, L501.8820, L501.9520 ####[facility] [address] [place], [address] Chloride [Moles/Vol] 100 mmol/L Normal 98-107 [facility] Comment on above: Order Comment: 514.1 Performed By: #### L 501.6710, L100.0100, L500.4050, L501.8820, L501.9520 ####[facility] [address] [place], [address] CO2 [Moles/Vol] 28.0 mmol/L Normal 21.0-32.0 [facility] Comment on above: Order Comment: 514.1 Performed By: #### L 501.6710, L100.0100, L500.4050, L501.8820, L501.9520 ####[facility] [address] [place], [address] Creatinine [Mass/Vol] 0.62 mg/dL Normal 0.55-1.02 [facility] Comment on above: Order Comment: 514.1 Result Comment: The validity of the calculated GFR GFRAA in patients over70 years has not been determined. Clinical correlation isessential. Performed By: #### L 501.6710, L100.0100, L500.4050, L501.8820, L501.9520 ####[facility] [address] [place], [address] EST GFR - AA 119 mL/min Normal >60 [facility] Comment on above: Order Comment: 514.1 Result Comment: Afri can Gabonese GFR Calc Performed By: #### L 501.6710, L100.0100, L500.4050, L501.8820, L501.9520 ####[facility] [address] [place], [address] GAP 6 Normal 5-15 [facility] Comment on above: Order Comment: 514.1 Performed By: #### L 501.6710, L100.0100, L500.4050, L501.8820, L501.9520 ####[facility] [address] [place], [address] GFR/1.73 sq M.predicted among non-blacks MDRD (S/P/Bld) [Vol rate/Area] 99 mL/min/{1.73_m2} Normal >60 [facility] Comment on above: Order Comment: 514.1 Result Comment: Non- GFR Calc Performed By: #### L 501.6710, L100.0100, L500.4050, L501.8820, L501.9520 ####[facility] [address] [place], [address] Globulin (S) [Mass/Vol] 4.0 g/dL Normal 2.2-4.2 [facility] Comment on above: Order Comment: 514.1 Performed By: #### L 501.6710, L100.0100, L500.4050, L501.8820, L501.9520 ####[facility] [address] [place], [address] Glucose [Mass/Vol] 112 mg/dL High 74-106 [facility] Comment on above: Order Comment: 514.1 Result Comment: Fast ing Glucose result from 100 to 125 mg/dLsuggests IMPAIRED HOMEOSTASIS per A.D.A. criteria. Performed By: #### L 501.6710, L100.0100, L500.4050, L501.8820, L501.9520 ####[facility] [address] [place], [address] Potassium [Moles/Vol] 3.6 mmol/L Normal 3.5-5.1 [facility] Comment on above: Order Comment: 514.1 Performed By: #### L 501.6710, L100.0100, L500.4050, L501.8820, L501.9520 ####[facility] [address] [place], [address] Sodium [Moles/Vol] 134 mmol/L Low 136-145 [facility] Comment on above: Order Comment: 514.1 Performed By: #### L 501.6710, L100.0100, L500.4050, L501.8820, L501.9520 ####[facility] [address] [place], [address] T PROT 5.7 g/dL Low 6.4-8.2 [facility] Comment on above: Order Comment: 514.1 Performed By: #### L 501.6710, L100.0100, L500.4050, L501.8820, L501.9520 ####[facility] [address] [place], [address] Urea nitrogen [Mass/Vol] 16 mg/dL Normal 7-18 [facility] Comment on above: Order Comment: 514.1 Performed By: #### L 501.6710, L100.0100, L500.4050, L501.8820, L501.9520 ####[facility] [address] [place], [address] Thyroid Stim Hormone (TSH)on 12-11-2023 TSH 2.240 uIU/mL Normal 0.358-3.740 [facility] Comment on above: Order Comment: 514.1 Performed By: #### L 501.6710, L100.0100, L500.4050, L501.8820, L501.9520 ####[facility] [address] [place], [address] Vancomycin, Trough Levelon 0 - VANCO, TROUGH 20.7 ug/mL High 5.0-15.0 [facility] Comment on above: Order Comment: 514.1 0000 Result Comment: VANC OMYCIN STANDARED DRUG THERAPY TROUGH LEVEL: 5.0 - 15.0 mg/LVANCOMYCIN HIGH INTENSITY THERAPY TROUGH LEVEL: 15.0 - 20.0 mg/LHigh Intensity therapy recommended for serious lifethreatening infections include:- Bahdfbiapp-Kfqjagelkpfu-Rgvqyuoti (Ventilator/Healtcare Associated)-SepsisPLEASE CONTACT PHARMACY SERVICES (#3047) FOR INTERPRETATIONOF RESULTS. Performed By: #### L 501.6710, L100.0100, L500.4050, L501.8820, L501.9520 ####[facility] [address] [place], [address] CBC W/Diff, Automatedon 08- Absolute Lymph 2.08 X10 3/uL Normal 0.83-4.51 [facility] Comment on above: Order Comment: 514-1 Performed By: #### L 501.6710, L500.4050, L100.0100, L501.8820 ####[facility] [address] [place], [address] Absolute Neut 9.0 X10 3/uL High 2.0-7.7 [facility] Comment on above: Order Comment: 514-1 Performed By: #### L 501.6710, L500.4050, L100.0100, L501.8820 ####[facility] [address] [place], [address] Basophils/100 WBC (Bld) 0.6 % Normal 0-1 [facility] Comment on above: Order Comment: 514-1 Performed By: #### L 501.6710, L500.4050, L100.0100, L501.8820 ####[facility] [address] [place], [address] Eosinophils/100 WBC (Bld) 2.2 % Normal 0-5 [facility] Comment on above: Order Comment: 514-1 Performed By: #### L 501.6710, L500.4050, L100.0100, L501.8820 ####[facility] [address] [place], [address] Erythrocyte distribution width (RBC) [Ratio] 17.2 % High 11.6-14.6 [facility] Comment on above: Order Comment: 514-1 Performed By: #### L 501.6710, L500.4050, L100.0100, L501.8820 ####[facility] [address] [place], [address] Hematocrit (Bld) [Volume fraction] 30.6 % Low 37-47 [facility] Comment on above: Order Comment: 514-1 Performed By: #### L 501.6710, L500.4050, L100.0100, L501.8820 ####[facility] [address] [place], [address] Hemoglobin (Bld) [Mass/Vol] 9.4 g/dL Low 12.0-15.0 [facility] Comment on above: Order Comment: 514-1 Performed By: #### L 501.6710, L500.4050, L100.0100, L501.8820 ####[facility] [address] [place], [address] IG% 0.700 Normal 0.0-0.9 [facility] Comment on above: Order Comment: 514-1 Result Comment: IG% - Immature Granulocytes (promyelocytes, myelocytes andmetamyelocytes) > 1% indicates that a LEFT SHIFT is Present. Performed By: #### L 501.6710, L500.4050, L100.0100, L501.8820 ####[facility] [address] [place], [address] Lymphocytes/100 WBC (Bld) 16.7 % Low 19-41 [facility] Comment on above: Order Comment: 514-1 Performed By: #### L 501.6710, L500.4050, L100.0100, L501.8820 ####[facility] [address] [place], [address] MCH (RBC) [Entitic mass] 26.4 pg Low 27.0-32.0 [facility] Comment on above: Order Comment: 514-1 Performed By: #### L 501.6710, L500.4050, L100.0100, L501.8820 ####[facility] [address] [place], [address] MCHC (RBC) [Mass/Vol] 30.7 g/dL Low 32-36 [facility] Comment on above: Order Comment: 514-1 Performed By: #### L 501.6710, L500.4050, L100.0100, L501.8820 ####[facility] [address] [place], [address] MCV (RBC) [Entitic vol] 86.0 fL Normal 81-99 [facility] Comment on above: Order Comment: 514-1 Performed By: #### L 501.6710, L500.4050, L100.0100, L501.8820 ####[facility] [address] [place], [address] Monocytes/100 WBC (Bld) 7.7 % Normal 0-10 [facility] Comment on above: Order Comment: 514-1 Performed By: #### L 501.6710, L500.4050, L100.0100, L501.8820 ####[facility] [address] [place], [address] Neutrophils/100 WBC (Bld) 72.1 % High 47-70 [facility] Comment on above: Order Comment: 514-1 Performed By: #### L 501.6710, L500.4050, L100.0100, L501.8820 ####[facility] [address] [place], [address] Nucleated RBC (Bld) [#/Vol] 0 10*3/uL Normal 0-5 [facility] Comment on above: Order Comment: 514-1 Performed By: #### L 501.6710, L500.4050, L100.0100, L501.8820 ####[facility] [address] [place], [address] Platelet mean volume (Bld) [Entitic vol] 9.2 fL Normal 6.2-12.0 [facility] Comment on above: Order Comment: 514-1 Performed By: #### L 501.6710, L500.4050, L100.0100, L501.8820 ####[facility] [address] [place], [address] Platelets (Bld) [#/Vol] 319 10*3/uL Normal 150-450 [facility] Comment on above: Order Comment: 514-1 Performed By: #### L 501.6710, L500.4050, L100.0100, L501.8820 ####[facility] [address] [place], [address] RBC (Bld) [#/Vol] 3.56 10*6/uL Low 4.2-5.4 [facility] Comment on above: Order Comment: 514-1 Performed By: #### L 501.6710, L500.4050, L100.0100, L501.8820 ####[facility] [address] [place], [address] RDW SD 55.0 fl High 35.1-43.9 [facility] Comment on above: Order Comment: 514-1 Performed By: #### L 501.6710, L500.4050, L100.0100, L501.8820 ####[facility] [address] [place], [address] WBC (Bld) [#/Vol] 12.5 10*3/uL High 4.4-11.0 [facility] Comment on above: Order Comment: 514-1 Performed By: #### L 501.6710, L500.4050, L100.0100, L501.8820 ####[facility] [address] [place], [address] CRPon 12-03-2023 C-REACTIVE PROT 108.00 mg/L High 0.0-3.0 [facility] Comment on above: Order Comment: 514-1 Result Comment: C-Re active Protein (CRP) provides useful information for thediagnosis, therapy and monitoring of inflammatory processesand associated diseases. For the evaluation of Relative Riskfor Cardiovascular Disease, a High Sensitivity CRP (HSCRP)should be ordered. Performed By: #### L 501.6710, L500.4050, L100.0100, L501.8820 ####[facility] [address] [place], [address] Comprehensive Metabolic Prof ilon 12-03-2023 Albumin [Mass/Vol] 1.8 g/dL Low 3.2-5.0 [facility] Comment on above: Order Comment: 514-1 Performed By: #### L 501.6710, L500.4050, L100.0100, L501.8820 ####[facility] [address] [place], [address] Albumin/Globulin [Mass ratio] 0.4 {ratio} Low 0.9-2.4 [facility] Comment on above: Order Comment: 514-1 Performed By: #### L 501.6710, L500.4050, L100.0100, L501.8820 ####[facility] [address] [place], [address] ALK P 203 U/L High 45-117 [facility] Comment on above: Order Comment: 514-1 Performed By: #### L 501.6710, L500.4050, L100.0100, L501.8820 ####[facility] [address] [place], [address] ALT [Catalytic activity/Vol] 14 U/L Normal 13-56 [facility] Comment on above: Order Comment: 514-1 Performed By: #### L 501.6710, L500.4050, L100.0100, L501.8820 ####[facility] [address] [place], [address] AST [Catalytic activity/Vol] 20 U/L Normal 15-37 [facility] Comment on above: Order Comment: 514-1 Performed By: #### L 501.6710, L500.4050, L100.0100, L501.8820 ####[facility] [address] [place], [address] Bilirubin [Mass/Vol] 0.30 mg/dL Normal 0.20-1.00 [facility] Comment on above: Order Comment: 514-1 Result Comment: For patients on eltrombopag therapy, use of Dimension [place] TBIL is not recommended. Performed By: #### L 501.6710, L500.4050, L100.0100, L501.8820 ####[facility] [address] [place], [address] BUN/CRE 24.4 RATIO High 10-20 [facility] Comment on above: Order Comment: 514-1 Performed By: #### L 501.6710, L500.4050, L100.0100, L501.8820 ####[facility] [address] [place], [address] CA,Total 8.3 mg/dL Low 8.5-10.1 [facility] Comment on above: Order Comment: 514-1 Performed By: #### L 501.6710, L500.4050, L100.0100, L501.8820 ####[facility] [address] [place], [address] Chloride [Moles/Vol] 100 mmol/L Normal 98-107 [facility] Comment on above: Order Comment: 514-1 Performed By: #### L 501.6710, L500.4050, L100.0100, L501.8820 ####[facility] [address] [place], [address] CO2 [Moles/Vol] 26.0 mmol/L Normal 21.0-32.0 [facility] Comment on above: Order Comment: 514-1 Performed By: #### L 501.6710, L500.4050, L100.0100, L501.8820 ####[facility] [address] [place], [address] Creatinine [Mass/Vol] 0.78 mg/dL Normal 0.55-1.02 [facility] Comment on above: Order Comment: 514-1 Result Comment: The validity of the calculated GFR GFRAA in patients over70 years has not been determined. Clinical correlation isessential. Performed By: #### L 501.6710, L500.4050, L100.0100, L501.8820 ####[facility] [address] [place], [address] EST GFR - AA 92 mL/min Normal >60 [facility] Comment on above: Order Comment: 514-1 Result Comment: Afri can [place]onese GFR Calc Performed By: #### L 501.6710, L500.4050, L100.0100, L501.8820 ####[facility] [address] [place], [address] GAP 10 Normal 5-15 [facility] Comment on above: Order Comment: 514-1 Performed By: #### L 501.6710, L500.4050, L100.0100, L501.8820 ####[facility] [address] [place], [address] GFR/1.73 sq M.predicted among non-blacks MDRD (S/P/Bld) [Vol rate/Area] 76 mL/min/{1.73_m2} Normal >60 [facility] Comment on above: Order Comment: 514-1 Result Comment: Non- GFR Calc Performed By: #### L 501.6710, L500.4050, L100.0100, L501.8820 ####[facility] [address] [place], [address] Globulin (S) [Mass/Vol] 4.0 g/dL Normal 2.2-4.2 [facility] Comment on above: Order Comment: 514-1 Performed By: #### L 501.6710, L500.4050, L100.0100, L501.8820 ####[facility] [address] [place], [address] Glucose [Mass/Vol] 132 mg/dL High 74-106 [facility] Comment on above: Order Comment: 514-1 Result Comment: Fast ing Glucose result greater than or equal to 126 mg/dLsuggests DIABETES MELLITUS per A.D.A. criteria. Performed By: #### L 501.6710, L500.4050, L100.0100, L501.8820 ####[facility] [address] [place], [address] Potassium [Moles/Vol] 3.3 mmol/L Low 3.5-5.1 [facility] Comment on above: Order Comment: 514-1 Performed By: #### L 501.6710, L500.4050, L100.0100, L501.8820 ####[facility] [address] [place], [address] Sodium [Moles/Vol] 136 mmol/L Normal 136-145 [facility] Comment on above: Order Comment: 514-1 Performed By: #### L 501.6710, L500.4050, L100.0100, L501.8820 ####[facility] [address] [place], [address] T PROT 5.8 g/dL Low 6.4-8.2 [facility] Comment on above: Order Comment: 514-1 Performed By: #### L 501.6710, L500.4050, L100.0100, L501.8820 ####[facility] [address] [place], [address] Urea nitrogen [Mass/Vol] 19 mg/dL High 7-18 [facility] Comment on above: Order Comment: 514- Performed By: #### L 501.6710, L500.4050, L100.0100, L501.8820 ####[facility] [address] [place], [address] Vancomycin, Trough Levelon 0 8- VANCO, TROUGH 18.9 ug/mL High 5.0-15.0 [facility] Comment on above: Order Comment: 514-1 0730 Result Comment: VANC OMYCIN STANDARED DRUG THERAPY TROUGH LEVEL: 5.0 - 15.0 mg/LVANCOMYCIN HIGH INTENSITY THERAPY TROUGH LEVEL: 15.0 - 20.0 mg/LHigh Intensity therapy recommended for serious lifethreatening infections include:- Uswjkcxryy-Bylrypiipkst-Kekzbtpqy (Ventilator/Healtcare Associated)-SepsisPLEASE CONTACT PHARMACY SERVICES (#4467) FOR INTERPRETATIONOF RESULTS. Performed By: #### L 501.6710, L500.4050, L100.0100, L501.8820 ####[facility] [address] [place], [address] Vancomycin, Trough Levelon 0 8- VANCO, TROUGH 23.4 ug/mL High 5.0-15.0 [facility] Comment on above: Order Comment: 514.1 0000 Result Comment: VANC OMYCIN STANDARED DRUG THERAPY TROUGH LEVEL: 5.0 - 15.0 mg/LVANCOMYCIN HIGH INTENSITY THERAPY TROUGH LEVEL: 15.0 - 20.0 mg/LHigh Intensity therapy recommended for serious lifethreatening infections include:- Nliuwqrimk-Crdxyzmztqui-Tabhnqvxo (Ventilator/Healtcare Associated)-SepsisPLEASE CONTACT PHARMACY SERVICES (#6824) FOR INTERPRETATIONOF RESULTS. Performed By: #### L [id number] ####[facility] [address] [place], [address] Folates, (Folic Acid)on 11-08 FOLATES 16.60 ng/mL Normal 3.1-55.4 [facility] Comment on above: Order Comment: 514-1 N Result Comment: Slig ht Hemolysis, Result may be falsely increased. Performed By: #### L 506.1000, L506.0250, L503.0105 ####[facility] [address] [place], [address] Vitamin B12on 11-28-2023 Cobalamin (Vitamin B12) [Mass/Vol] 576 pg/mL Normal 211-911 [facility] Comment on above: Order Comment: 514 Performed By: #### L 506.1000, L506.0250, L503.0105 ####[facility] [address] [place], [address] Vitamin D,25 Hydroxyon 11-27 Vitamin D 25-OH 51.4 ng/mL Normal [facility] Comment on above: Order Comment: 5141 Result Comment: Ele min D 25(OH) Status Range Deficiency <20 ng/mL (50nmol/L) Insufficiency 20 - 30 ng/mL (50 - 75 nmol/L) Sufficiency 30 - 100 ng/mL (75 - 250 nmol/L) Toxicity >100 ng/mL (>250 nmol/L) Performed By: #### L 506.1000, L506.0250, L503.0105 ####[facility] [address] [place], [address] Vancomycin, Random Levelon 0 11-27-2023 VANCO, RANDOM 15.9 ug/mL High 0.0-15.0 [facility] Comment on above: Order Comment: 514.1 Result Comment: VANC OMYCIN STANDARD DRUG THERAPY: CRITICAL VALUE IS > 15.0 mg/LVANCOMYCIN HIGH INTENSITY THERAPY: CRITICAL VALUE IS > 20.0 mg/LPLEASE CONTACT PHARMACY SERVICES (#3180) FOR INTERPRETATIONOF RESULTS. THIS RESULT DOES NOT REPRESENT A PEAK OR TROUGHLEVEL FOR THIS DRUG. Performed By: #### L 501.8850 ####[facility] [address] [place], [address] Basic Metabolic Profile (BMP )on 11-26-2023 BUN/CRE 19.4 RATIO Normal - [facility] Comment on above: Order Comment: 514.1 Performed By: #### L 501.6710, L500.2500, L501.8820, L100.0100 ####[facility] [address] [place], [address] CA,Total 8.2 mg/dL Low 8.5-10.1 [facility] Comment on above: Order Comment: 514.1 Performed By: #### L 501.6710, L500.2500, L501.8820, L100.0100 ####[facility] [address] [place], [address] Chloride [Moles/Vol] 106 mmol/L Normal 98-107 [facility] Comment on above: Order Comment: 514.1 Performed By: #### L 501.6710, L500.2500, L501.8820, L100.0100 ####[facility] [address] [place], [address] CO2 [Moles/Vol] 27.0 mmol/L Normal 21.0-32.0 [facility] Comment on above: Order Comment: 514.1 Performed By: #### L 501.6710, L500.2500, L501.8820, L100.0100 ####[facility] [address] [place], [address] Creatinine [Mass/Vol] 0.62 mg/dL Normal 0.55-1.02 [facility] Comment on above: Order Comment: 514.1 Result Comment: The validity of the calculated GFR GFRAA in patients over70 years has not been determined. Clinical correlation isessential. Performed By: #### L 501.6710, L500.2500, L501.8820, L100.0100 ####[facility] [address] [place], [address] EST GFR - AA 121 mL/min Normal >60 [facility] Comment on above: Order Comment: 514.1 Result Comment: Afri can Gabonese GFR Calc Performed By: #### L 501.6710, L500.2500, L501.8820, L100.0100 ####[facility] [address] [place], [address] GAP 5 Normal 5-15 [facility] Comment on above: Order Comment: 514.1 Performed By: #### L 501.6710, L500.2500, L501.8820, L100.0100 ####[facility] [address] [place], [address] GFR/1.73 sq M.predicted among non-blacks MDRD (S/P/Bld) [Vol rate/Area] 100 mL/min/{1.73_m2} Normal >60 [facility] Comment on above: Order Comment: 514.1 Result Comment: Non- GFR Calc Performed By: #### L 501.6710, L500.2500, L501.8820, L100.0100 ####[facility] [address] [place], [address] Glucose [Mass/Vol] 102 mg/dL Normal 74-106 [facility] Comment on above: Order Comment: 514.1 Result Comment: Fast ing Glucose result from 100 to 125 mg/dLsuggests IMPAIRED HOMEOSTASIS per A.D.A. criteria. Performed By: #### L 501.6710, L500.2500, L501.8820, L100.0100 ####[facility] [address] [place], [address] Potassium [Moles/Vol] 3.3 mmol/L Low 3.5-5.1 [facility] Comment on above: Order Comment: 514.1 Performed By: #### L 501.6710, L500.2500, L501.8820, L100.0100 ####[facility] [address] [place], [address] Sodium [Moles/Vol] 138 mmol/L Normal 136-145 [facility] Comment on above: Order Comment: 514.1 Performed By: #### L 501.6710, L500.2500, L501.8820, L100.0100 ####[facility] [address], [address] Urea nitrogen [Mass/Vol] 12 mg/dL Normal 7-18 [facility] Comment on above: Order Comment: 514.1 Performed By: #### L 501.6710, L500.2500, L501.8820, L100.0100 ####[facility] [address] [place], [address] CBC W/Diff, Automatedon 08- Absolute Lymph 2.11 X10 3/uL Normal 0.83-4.51 [facility] Comment on above: Order Comment: 514.1 Performed By: #### L 501.6710, L500.2500, L501.8820, L100.0100 ####[facility] [address] [place], [address] Absolute Neut 3.8 X10 3/uL Normal 2.0-7.7 [facility] Comment on above: Order Comment: 514.1 Performed By: #### L 501.6710, L500.2500, L501.8820, L100.0100 ####[facility] [address] [place], [address] Basophils/100 WBC (Bld) 0.6 % Normal 0-1 [facility] Comment on above: Order Comment: 514.1 Performed By: #### L 501.6710, L500.2500, L501.8820, L100.0100 ####[facility] [address] [place], [address] Eosinophils/100 WBC (Bld) 3.6 % Normal 0-5 [facility] Comment on above: Order Comment: 514.1 Performed By: #### L 501.6710, L500.2500, L501.8820, L100.0100 ####[facility] [address] [place], [address] Erythrocyte distribution width (RBC) [Ratio] 17.3 % High 11.6-14.6 [facility] Comment on above: Order Comment: 514.1 Performed By: #### L 501.6710, L500.2500, L501.8820, L100.0100 ####[facility] [address] [place], [address] Hematocrit (Bld) [Volume fraction] 30.2 % Low 37-47 [facility] Comment on above: Order Comment: 514.1 Performed By: #### L 501.6710, L500.2500, L501.8820, L100.0100 ####[facility] [address] [place], [address] Hemoglobin (Bld) [Mass/Vol] 9.1 g/dL Low 12.0-15.0 [facility] Comment on above: Order Comment: 514.1 Performed By: #### L 501.6710, L500.2500, L501.8820, L100.0100 ####[facility] [address] [place], [address] IG% 0.400 Normal 0.0-0.9 [facility] Comment on above: Order Comment: 514.1 Result Comment: IG% - Immature Granulocytes (promyelocytes, myelocytes andmetamyelocytes) > 1% indicates that a LEFT SHIFT is Present. Performed By: #### L 501.6710, L500.2500, L501.8820, L100.0100 ####[facility] [address] [place], [address] Lymphocytes/100 WBC (Bld) 31.5 % Normal 19-41 [facility] Comment on above: Order Comment: 514.1 Performed By: #### L 501.6710, L500.2500, L501.8820, L100.0100 ####[facility] [address] [place], [address] MCH (RBC) [Entitic mass] 26.4 pg Low 27.0-32.0 [facility] Comment on above: Order Comment: 514.1 Performed By: #### L 501.6710, L500.2500, L501.8820, L100.0100 ####[facility] [address] [place], [address] MCHC (RBC) [Mass/Vol] 30.1 g/dL Low 32-36 [facility] Comment on above: Order Comment: 514.1 Performed By: #### L 501.6710, L500.2500, L501.8820, L100.0100 ####[facility] [address] [place], [address] MCV (RBC) [Entitic vol] 87.5 fL Normal 81-99 [facility] Comment on above: Order Comment: 514.1 Performed By: #### L 501.6710, L500.2500, L501.8820, L100.0100 ####[facility] [address] [place], [address] Monocytes/100 WBC (Bld) 7.5 % Normal 0-10 [facility] Comment on above: Order Comment: 514.1 Performed By: #### L 501.6710, L500.2500, L501.8820, L100.0100 ####[facility] [address] [place], [address] Neutrophils/100 WBC (Bld) 56.4 % Normal 47-70 [facility] Comment on above: Order Comment: 514.1 Performed By: #### L 501.6710, L500.2500, L501.8820, L100.0100 ####[facility] [address] [place], [address] Nucleated RBC (Bld) [#/Vol] 0 10*3/uL Normal 0-5 [facility] Comment on above: Order Comment: 514.1 Performed By: #### L 501.6710, L500.2500, L501.8820, L100.0100 ####[facility] [address] [place], [address] Platelet mean volume (Bld) [Entitic vol] 8.5 fL Normal 6.2-12.0 [facility] Comment on above: Order Comment: 514.1 Performed By: #### L 501.6710, L500.2500, L501.8820, L100.0100 ####[facility] [address] [place], [address] Platelets (Bld) [#/Vol] 240 10*3/uL Normal 150-450 [facility] Comment on above: Order Comment: 514.1 Performed By: #### L 501.6710, L500.2500, L501.8820, L100.0100 ####[facility] [address] [place], [address] RBC (Bld) [#/Vol] 3.45 10*6/uL Low 4.2-5.4 [facility] Comment on above: Order Comment: 514.1 Performed By: #### L 501.6710, L500.2500, L501.8820, L100.0100 ####[facility] [address] [place], [address] RDW SD 56.0 fl High 35.1-43.9 [facility] Comment on above: Order Comment: 514.1 Performed By: #### L 501.6710, L500.2500, L501.8820, L100.0100 ####[facility] [address] [place], [address] WBC (Bld) [#/Vol] 6.7 10*3/uL Normal 4.4-11.0 [facility] Comment on above: Order Comment: 514.1 Performed By: #### L 501.6710, L500.2500, L501.8820, L100.0100 ####[facility] [address] [place], [address] CRPon 11-26-2023 C-REACTIVE PROT 62.00 mg/L High 0.0-3.0 [facility] Comment on above: Order Comment: 514.1 Result Comment: C-Re active Protein (CRP) provides useful information for thediagnosis, therapy and monitoring of inflammatory processesand associated diseases. For the evaluation of Relative Riskfor Cardiovascular Disease, a High Sensitivity CRP (HSCRP)should be ordered. Performed By: #### L 501.6710, L500.2500, L501.8820, L100.0100 ####[facility] [address] [place], [address] Vancomycin, Trough Levelon 0 11-26-2023 VANCO, TROUGH 27.3 ug/mL High 5.0-15.0 [facility] Comment on above: Order Comment: 514.1 0000 Result Comment: VANC OMYCIN STANDARED DRUG THERAPY TROUGH LEVEL: 5.0 - 15.0 mg/LVANCOMYCIN HIGH INTENSITY THERAPY TROUGH LEVEL: 15.0 - 20.0 mg/LHigh Intensity therapy recommended for serious lifethreatening infections include:- Cjhbtjbgmh-Kwdqtkgqypws-Ilxgjdwjw (Ventilator/Healtcare Associated)-SepsisPLEASE CONTACT PHARMACY SERVICES (#5296) FOR INTERPRETATIONOF RESULTS. Performed By: #### L 501.6710, L500.2500, L501.8820, L100.0100 ####[facility] [address] [place], [address] Basic Metabolic Profile (BMP )on 11-21-2023 BUN/CRE 21.1 RATIO High 10-20 [facility] Comment on above: Order Comment: 514-1 Performed By: #### L 100.0100, L500.2500 ####[facility] [address] [place], [address] CA,Total 8.6 mg/dL Normal 8.5-10.1 [facility] Comment on above: Order Comment: 514-1 Performed By: #### L 100.0100, L500.2500 ####[facility] [address] [place], [address] Chloride [Moles/Vol] 101 mmol/L Normal 98-107 [facility] Comment on above: Order Comment: 514-1 Performed By: #### L 100.0100, L500.2500 ####[facility] [address] [place], [address] CO2 [Moles/Vol] 29.0 mmol/L Normal 21.0-32.0 [facility] Comment on above: Order Comment: 514-1 Performed By: #### L 100.0100, L500.2500 ####[facility] [address] [place], [address] Creatinine [Mass/Vol] 0.62 mg/dL Normal 0.55-1.02 [facility] Comment on above: Order Comment: 514-1 Result Comment: The validity of the calculated GFR GFRAA in patients over70 years has not been determined. Clinical correlation isessential. Performed By: #### L 100.0100, L500.2500 ####[facility] [address] [place], [address] EST GFR - AA 122 mL/min Normal >60 [facility] Comment on above: Order Comment: 514-1 Result Comment: Afri can Gabonese GFR Calc Performed By: #### L 100.0100, L500.2500 ####[facility] [address] [place], [address] GAP 6 Normal 5-15 [facility] Comment on above: Order Comment: 514-1 Performed By: #### L 100.0100, L500.2500 ####[facility] [address] [place], [address] GFR/1.73 sq M.predicted among non-blacks MDRD (S/P/Bld) [Vol rate/Area] 100 mL/min/{1.73_m2} Normal >60 [facility] Comment on above: Order Comment: 514- Result Comment: Non- GFR Calc Performed By: #### L 100.0100, L500.2500 ####[facility] [address] [place], [address] Glucose [Mass/Vol] 134 mg/dL High 74-106 [facility] Comment on above: Order Comment: 514-1 Result Comment: Fast ing Glucose result greater than or equal to 126 mg/dLsuggests DIABETES MELLITUS per A.D.A. criteria. Performed By: #### L 100.0100, L500.2500 ####[facility] [address] [place], [address] Potassium [Moles/Vol] 3.4 mmol/L Low 3.5-5.1 [facility] Comment on above: Order Comment: 514-1 Performed By: #### L 100.0100, L500.2500 ####[facility] [address] [place], [address] Sodium [Moles/Vol] 136 mmol/L Normal 136-145 [facility] Comment on above: Order Comment: 514-1 Performed By: #### L 100.0100, L500.2500 ####[facility] [address] [place], [address] Urea nitrogen [Mass/Vol] 13 mg/dL Normal 7-18 [facility] Comment on above: Order Comment: 514-1 Performed By: #### L 100.0100, L500.2500 ####[facility] [address] [place], [address] CBC W/Diff, Automatedon 08- 4-2023 Absolute Lymph 1.69 X10 3/uL Normal 0.83-4.51 [facility] Comment on above: Order Comment: 514-1 Performed By: #### L 100.0100, L500.2500 ####[facility] [address] [place], [address] Absolute Neut 5.1 X10 3/uL Normal 2.0-7.7 [facility] Comment on above: Order Comment: 514-1 Performed By: #### L 100.0100, L500.2500 ####[facility] [address] [place], [address] Basophils/100 WBC (Bld) 0.5 % Normal 0-1 [facility] Comment on above: Order Comment: 514-1 Performed By: #### L 100.0100, L500.2500 ####[facility] [address] [place], [address] Eosinophils/100 WBC (Bld) 2.9 % Normal 0-5 [facility] Comment on above: Order Comment: 514-1 Performed By: #### L 100.0100, L500.2500 ####[facility] [address] [place], [address] Erythrocyte distribution width (RBC) [Ratio] 17.3 % High 11.6-14.6 [facility] Comment on above: Order Comment: 514-1 Performed By: #### L 100.0100, L500.2500 ####[facility] [address] [place], [address] Hematocrit (Bld) [Volume fraction] 27.1 % Low 37-47 [facility] Comment on above: Order Comment: 514-1 Performed By: #### L 100.0100, L500.2500 ####[facility] [address] [place], [address] Hemoglobin (Bld) [Mass/Vol] 8.4 g/dL Low 12.0-15.0 [facility] Comment on above: Order Comment: 514-1 Performed By: #### L 100.0100, L500.2500 ####[facility] [address] [place], [address] IG% 0.500 Normal 0.0-0.9 [facility] Comment on above: Order Comment: 514-1 Result Comment: IG% - Immature Granulocytes (promyelocytes, myelocytes andmetamyelocytes) > 1% indicates that a LEFT SHIFT is Present. Performed By: #### L 100.0100, L500.2500 ####[facility] [address] [place], [address] Lymphocytes/100 WBC (Bld) 21.5 % Normal 19-41 [facility] Comment on above: Order Comment: 514-1 Performed By: #### L 100.0100, L500.2500 ####[facility] [address] [place], [address] MCH (RBC) [Entitic mass] 27.0 pg Normal 27.0-32.0 [facility] Comment on above: Order Comment: 514-1 Performed By: #### L 100.0100, L500.2500 ####[facility] [address] [place], [address] MCHC (RBC) [Mass/Vol] 31.0 g/dL Low 32-36 [facility] Comment on above: Order Comment: 514-1 Performed By: #### L 100.0100, L500.2500 ####[facility] [address] [place], [address] MCV (RBC) [Entitic vol] 87.1 fL Normal 81-99 [facility] Comment on above: Order Comment: 514-1 Performed By: #### L 100.0100, L500.2500 ####[facility] [address] [place], [address] Monocytes/100 WBC (Bld) 9.3 % Normal 0-10 [facility] Comment on above: Order Comment: 514-1 Performed By: #### L 100.0100, L500.2500 ####[facility] [address] [place], [address] Neutrophils/100 WBC (Bld) 65.3 % Normal 47-70 [facility] Comment on above: Order Comment: 514-1 Performed By: #### L 100.0100, L500.2500 ####[facility] [address] [place], [address] Nucleated RBC (Bld) [#/Vol] 0 10*3/uL Normal 0-5 [facility] Comment on above: Order Comment: 514-1 Performed By: #### L 100.0100, L500.2500 ####[facility] [address] [place], [address] Platelet mean volume (Bld) [Entitic vol] 9.3 fL Normal 6.2-12.0 [facility] Comment on above: Order Comment: 514-1 Performed By: #### L 100.0100, L500.2500 ####[facility] [address] [place], [address] Platelets (Bld) [#/Vol] 195 10*3/uL Normal 150-450 [facility] Comment on above: Order Comment: 514-1 Performed By: #### L 100.0100, L500.2500 ####[facility] [address] [place], [address] RBC (Bld) [#/Vol] 3.11 10*6/uL Low 4.2-5.4 [facility] Comment on above: Order Comment: 514-1 Performed By: #### L 100.0100, L500.2500 ####[facility] [address] [place], [address] RDW SD 54.7 fl High 35.1-43.9 [facility] Comment on above: Order Comment: 514-1 Performed By: #### L 100.0100, L500.2500 ####[facility] [address] [place], [address] WBC (Bld) [#/Vol] 7.9 10*3/uL Normal 4.4-11.0 [facility] Comment on above: Order Comment: 514-1 Performed By: #### L 100.0100, L500.2500 ####[facility] [address] [place], [address] CBC panel Auto (Bld)on 11-19 Erythrocyte distribution width (RBC) [Ratio] 17.2 % High 11.5 - 14.5 % [facility] Hematocrit (Bld) [Volume fraction] 26.5 % Low 36.0 - 46.0 % [facility] Hemoglobin (Bld) [Mass/Vol] 8.3 g/dL Low 12.0 - 16.0 g/dL [facility] Interpretation and review of laboratory results Abnormal [facility] MCH (RBC) [Entitic mass] 27.3 pg 26.0 - 34.0 pg [facility] MCHC (RBC) [Mass/Vol] 31.3 g/dL Low 32.0 - 36.0 g/dL [facility] MCV (RBC) [Entitic vol] 87 fL 80 - 100 fL [facility] Nucleated RBC/100 WBC (Bld) [Ratio] 0.0 % [facility] Platelets (Bld) [#/Vol] 180 10*3/uL [facility] RBC (Bld) [#/Vol] 3.04 10*6/uL Low [facility] WBC (Bld) [#/Vol] 7.5 10*3/uL [facility] Erythrocyte distribution width (RBC) [Ratio] 17.2 % High 11.5-14.5 [facility] Comment on above: Performed By: #### 1 9123-9 #### OMERO KNIGHT ([id number]) [facility] ([facility]) [address] [place] [address] Hematocrit (Bld) [Volume fraction] 26.5 % Low 36.0-46.0 [facility] Comment on above: Performed By: #### 1 9123-9 #### OMERO KNIGHT (28243) [facility] ([facility]) [address] [place] [address] Hemoglobin (Bld) [Mass/Vol] 8.3 g/dL Low 12.0-16.0 [facility] Comment on above: Performed By: #### 1 9123-9 #### OMERO KNIGHT ([id number]) [facility] ([facility]) [address] [place] [address] MCH (RBC) [Entitic mass] 27.3 pg Normal 26.0-34.0 [facility] Comment on above: Performed By: #### 1 9123-9 #### OMERO KNIGHT (66525) [facility] ([facility]) [address] [place] [address] MCHC (RBC) [Mass/Vol] 31.3 g/dL Low 32.0-36.0 [facility] Comment on above: Performed By: #### 1 9123-9 #### OMERO KNIGHT (55062) [facility] ([facility]) [address] [place] [address] MCV (RBC) [Entitic vol] 87 fL Normal 80-100 [facility] Comment on above: Performed By: #### 1 9123-9 #### OMERO KNIGHT (43261) [facility] ([facility]) [address] [place] [address] Nucleated RBC/100 WBC (Bld) [Ratio] 0.0 /100 WBCs Normal 0.0-0.0 [facility] Comment on above: Performed By: #### 1 9123-9 #### OMERO KNIGHT (90522) [facility] ([facility]) [address] [place] [address] Platelets (Bld) [#/Vol] 180 x10*3/uL Normal 150-450 [facility] Comment on above: Performed By: #### 1 9123-9 #### OMERO KNIGHT ([id number]) [facility] ([facility]) [address] [place] [address] RBC (Bld) [#/Vol] 3.04 x10*6/uL Low 4.00-5.20 [facility] Comment on above: Performed By: #### 1 9123-9 #### OMERO KNIGHT (76393) [facility] ([facility]) [address] [place] [address] WBC (Bld) [#/Vol] 7.5 x10*3/uL Normal 4.4-11.3 [facility] Comment on above: Performed By: #### 1 9123-9 #### OMERO KNIGHT (70900) [facility] ([facility]) [address] [place] [address] Glucose Test strip manual (B ld) [Mass/Vol]on 11-20-2023 Glucose [Mass/Vol] 118 mg/dL High 74 - 99 mg/dL [facility] Interpretation and review of laboratory results Abnormal [facility] Glucose [Mass/Vol] 118 mg/dL High 74-99 [facility] Comment on above: Performed By: #### 1 9123-9 #### OMERO KNIGHT (18190) [facility] ([facility]) [address] [place] [address] Glucose [Mass/Vol] 135 mg/dL High 74 - 99 mg/dL [facility] Interpretation and review of laboratory results Abnormal [facility] Glucose [Mass/Vol] 135 mg/dL High 74-99 [facility] Comment on above: Performed By: #### 1 9123-9 #### OMERO KNIGHT (76054) [facility] ([facility]) [address] [place], [place] [id number] Magnesiumon 11-20-2023 Magnesium [Mass/Vol] 1.52 mg/dL Low 1.60 - 2.40 mg/dL [facility] Magnesium [Mass/Vol] 1.52 mg/dL Low 1.60-2.40 [facility] Comment on above: Performed By: #### 1 9123-9 #### OMERO KNIGHT (17161) [facility] ([facility]) [facility] [place] [address] No Panel Informationon 11-19 Interpretation and review of laboratory results Abnormal [facility] Renal function 2000 panelon 11-20-2023 Albumin BCP dye [Mass/Vol] 2.5 g/dL Low 3.4 - 5.0 g/dL [facility] Anion gap [Moles/Vol] 13 mmol/L 10 - 2 0 mmol/L [facility] Calcium [Mass/Vol] 8.1 mg/dL Low 8.6 - 10. 6 mg/dL [facility] Chloride [Moles/Vol] 99 mmol/L 98 - 10 7 mmol/L [facility] CO2 [Moles/Vol] 29 mmol/L 21 - 32 mmol/L [facility] Creatinine [Mass/Vol] 0.60 mg/dL 0.50 - 1.05 mg/dL [facility] eGFR - PINF [facility] Glucose [Mass/Vol] 122 mg/dL High 74 - 99 mg/dL [facility] Phosphate [Mass/Vol] 2.9 mg/dL 2.5 - 4 .9 mg/dL [facility] Potassium [Moles/Vol] 3.7 mmol/L 3.5 - 5.3 mmol/L [facility] Sodium [Moles/Vol] 137 mmol/L 136 - 145 mmol/L [facility] Urea nitrogen [Mass/Vol] 12 mg/dL 6 - 23 mg/dL [facility] Albumin BCP dye [Mass/Vol] 2.5 g/dL Low 3.4-5.0 [facility] Comment on above: Performed By: #### [id number] #### OMERO KNIGHT ([id number]) [facility] ([facility]) [address] [place] [address] Anion gap [Moles/Vol] 13 mmol/L Normal 10-20 [place] [facility] Comment on above: Performed By: #### 1 9123-9 #### OMERO KNIGHT ([id number]) [facility] ([facility]) [address] [place] [address] 41369 Calcium [Mass/Vol] 8.1 mg/dL Low 8.6-10.6 [facility] Comment on above: Performed By: #### 1 9123-9 #### OMERO KNIGHT ([id number]) [facility] ([facility]) [address] [place] [address] 68359 Chloride [Moles/Vol] 99 mmol/L Normal 98-107 [facility] Comment on above: Performed By: #### 1 9123-9 #### OMERO KNIGHT ([id number]) [facility] ([facility]) [address] [place] [address] CO2 [Moles/Vol] 29 mmol/L Normal 21-32 [facility] Comment on above: Performed By: #### 1 9123-9 #### OMERO KNIGHT ([id number]) [facility] ([facility]) [address] [place] [address] 72906 Creatinine [Mass/Vol] 0.60 mg/dL Normal 0.50-1.05 [facility] Comment on above: Performed By: #### 1 9123-9 #### OMERO KNIGHT ([id number]) [facility] ([facility]) [facility] [place] [address] GFR/1.73 sq M.predicted MDRD (S/P/Bld) [Vol rate/Area] mL/min/{1.73_m2} Normal >60 [facility] Comment on above: Result Comment: Calc ulations of estimated GFR are performed using the 2020 CKD-EPI Study Refit equation without the race variable for the IDMS-Traceable creatinine methods. https://jasn.asnjournals.org/content//ASN.64425 68445 Performed By: #### 1 9123-9 #### OMERO KNIGHT ([id number]) [facility] ([facility]) [address] [place] [address] 85287 Glucose [Mass/Vol] 122 mg/dL High 74-99 [facility] Comment on above: Performed By: #### 1 9123-9 #### OMERO KNIGHT ([id number]) [facility] ([facility]) [address] [place] [address] 77771 Phosphate [Mass/Vol] 2.9 mg/dL Normal 2.5-4.9 [facility] Comment on above: Result Comment: The performance characteristics of phosphorus testing in heparinized plasma have been validated by the individual laboratory site where testing is performed. Testing on heparinized plasma is not approved by the FDA; however, such approval is not necessary. Performed By: #### 1 9123-9 #### OMERO KNIGHT ([id number]) [facility] ([facility]) [address] [place] [address] 91865 Potassium [Moles/Vol] 3.7 mmol/L Normal 3.5-5.3 [facility] Comment on above: Performed By: #### 1 9123-9 #### OMERO KNIGHT ([id number]) [facility] ([facility]) [address] [place] [address] 44243 Sodium [Moles/Vol] 137 mmol/L Normal 136-145 [facility] Comment on above: Performed By: #### 1 9123-9 #### OMERO KNIGHT ([id number]) [facility] ([facility]) [address] [place] [address] 24139 Urea nitrogen [Mass/Vol] 12 mg/dL Normal 6-23 [facility] Comment on above: Performed By: #### 1 9123-9 #### OMERO KNIGHT ([id number]) [facility] ([facility]) [address] [place], [place] [address] Vancomycinon 11-20-2023 Vancomycin [Mass/Vol] 15.0 ug/mL 5.0 - 20.0 ug/mL [facility] Vancomycin [Mass/Vol] 15.0 ug/mL Normal 5.0-20.0 [facility] Comment on above: Order Comment: Vanco mycin [...] By: #### 1 9123-9 #### OMERO KNIGHT ([id number]) [facility] ([facility]) [address] [place] [address] 57869 Vancomycin [Mass/Vol]on 11-07 Interpretation and review of laboratory results Normal [facility] 25-hydroxyvitamin D3 [Mass/V ol]on 11-19-2023 [facility] CBC W Auto Differential pane l (Bld)on 11-19-2023 Basophils (Bld) [#/Vol] 0.03 10*3/uL [facility] Basophils/100 WBC (Bld) 0.4 % 0.0 - 2.0 % [facility] Eosinophils (Bld) [#/Vol] 0.20 10*3/uL [facility] Eosinophils/100 WBC (Bld) 2.5 % 0.0 - 6.0 % [facility] Erythrocyte distribution width (RBC) [Ratio] 17.1 % High 11.5 - 14.5 % [facility] Hematocrit (Bld) [Volume fraction] 27.2 % Low 36.0 - 46.0 % [facility] Hemoglobin (Bld) [Mass/Vol] 8.5 g/dL Low 12.0 - 16.0 g/dL [facility] Immature granulocytes (Bld) [#/Vol] 0.04 10*3/uL [facility] Immature granulocytes/100 WBC (Bld) 0.5 % 0.0 - 0.9 % [facility] Interpretation and review of laboratory results Abnormal [facility] Lymphocytes (Bld) [#/Vol] 2.39 10*3/uL [facility] Lymphocytes/100 WBC (Bld) 29.8 % 13.0 - 44.0 % [facility] MCH (RBC) [Entitic mass] 27.4 pg 26.0 - 34.0 pg [facility] MCHC (RBC) [Mass/Vol] 31.3 g/dL Low 32.0 - 36.0 g/dL [facility] MCV (RBC) [Entitic vol] 88 fL 80 - 100 fL [facility] Monocytes (Bld) [#/Vol] 0.64 10*3/uL [facility] Monocytes/100 WBC (Bld) 8.0 % 2.0 - 10.0 % [facility] Neutrophils (Bld) [#/Vol] 4.73 10*3/uL [facility] Neutrophils/100 WBC (Bld) 58.8 % 40.0 - 80.0 % [facility] Nucleated RBC/100 WBC (Bld) [Ratio] 0.0 % [facility] Platelets (Bld) [#/Vol] 178 10*3/uL [facility] RBC (Bld) [#/Vol] 3.10 10*6/uL Low [facility] WBC (Bld) [#/Vol] 8.0 10*3/uL [facility] Basophils (Bld) [#/Vol] 0.03 x10*3/uL Normal 0.00-0.10 [facility] Comment on above: Performed By: #### 1 9123-9 #### OMERO KNIGHT ([id number]) [facility] ([facility]) [address] [place] [address] 96859 Basophils/100 WBC (Bld) 0.4 % Normal 0.0-2.0 [facility] Comment on above: Performed By: #### 1 9123-9 #### OMERO KNIGHT ([id number]) [facility] ([facility]) [address] [place] [address] 11837 Eosinophils (Bld) [#/Vol] 0.20 x10*3/uL Normal 0.00-0.40 [facility] Comment on above: Performed By: #### 1 9123-9 #### OMERO KNIGHT ([id number]) [facility] ([facility]) [address] [place] [address] 42170 Eosinophils/100 WBC (Bld) 2.5 % Normal 0.0-6.0 [facility] Comment on above: Performed By: #### 1 9123-9 #### OMERO KNIGHT ([id number]) [facility] ([facility]) [address] [place] [address] 93740 Erythrocyte distribution width (RBC) [Ratio] 17.1 % High 11.5-14.5 [facility] Comment on above: Performed By: #### 1 9123-9 #### OMERO KNIGHT ([id number]) [facility] ([facility]) [address] [place] [address] 49894 Hematocrit (Bld) [Volume fraction] 27.2 % Low 36.0-46.0 [facility] Comment on above: Performed By: #### 1 9123-9 #### OMERO KNIGHT ([id number]) [facility] ([facility]) [address] [place] [address] 38657 Hemoglobin (Bld) [Mass/Vol] 8.5 g/dL Low 12.0-16.0 [facility] Comment on above: Performed By: #### 1 9123-9 #### OMERO KNIGHT ([id number]) [facility] ([facility]) [address] [place] [address] 00741 Immature granulocytes (Bld) [#/Vol] 0.04 x10*3/uL Normal 0.00-0.50 [facility] Comment on above: Performed By: #### 1 9123-9 #### OMERO KNIGHT ([id number]) [facility] ([facility]) [address] [place] [address] 89428 Immature granulocytes/100 WBC (Bld) 0.5 % Normal 0.0-0.9 [facility] Comment on above: Result Comment: Martina ture Granulocyte Count (IG) includes promyelocytes, myelocytes and metamyelocytes but does not include bands. Percent differential counts (%) should be interpreted in the context of the absolute cell counts (cells/UL). Performed By: #### 1 9123-9 #### OMERO KNIGHT ([id number]) [facility] ([facility]) [address] [place] [address] Lymphocytes (Bld) [#/Vol] 2.39 x10*3/uL Normal 0.80-3.00 [facility] Comment on above: Performed By: #### 1 9123-9 #### OMERO KNIGHT ([id number]) [facility] ([facility]) [address] [place] [address] 03946 Lymphocytes/100 WBC (Bld) 29.8 % Normal 13.0-44.0 [facility] Comment on above: Performed By: #### 1 9123-9 #### OMERO KNIGHT ([id number]) [facility] ([facility]) [address] [place] [address] 90572 MCH (RBC) [Entitic mass] 27.4 pg Normal 26.0-34.0 [facility] Comment on above: Performed By: #### 1 9123-9 #### OMERO KNIGHT ([id number]) [facility] ([facility]) [address] [place] [address] 37023 MCHC (RBC) [Mass/Vol] 31.3 g/dL Low 32.0-36.0 [facility] Comment on above: Performed By: #### 1 9123-9 #### OMERO KNIGHT ([id number]) [facility] ([facility]) [address] [place] [address] 38629 MCV (RBC) [Entitic vol] 88 fL Normal 80-100 [facility] Comment on above: Performed By: #### 1 9123-9 #### OMERO KNIGHT ([id number]) [facility] ([facility]) [address] [place] [address] 92688 Monocytes (Bld) [#/Vol] 0.64 x10*3/uL Normal 0.05-0.80 [facility] Comment on above: Performed By: #### 1 9123-9 #### OMERO KNIGHT ([id number]) [facility] ([facility]) [address] [place] [address] 50794 Monocytes/100 WBC (Bld) 8.0 % Normal 2.0-10.0 [facility] Comment on above: Performed By: #### 1 9123-9 #### OMERO KNIGHT ([id number]) [facility] ([facility]) [address] [place] [address] 84172 Neutrophils (Bld) [#/Vol] 4.73 x10*3/uL Normal 1.60-5.50 [facility] Comment on above: Result Comment: Perc ent differential counts (%) should be interpreted in the context of the absolute cell counts (cells/uL). Performed By: #### 1 9123-9 #### OMERO KNIGHT ([id number]) [facility] ([facility]) [address] [place] [address] 88626 Neutrophils/100 WBC (Bld) 58.8 % Normal 40.0-80.0 [facility] Comment on above: Performed By: #### 1 9123-9 #### OMERO KNIGHT ([id number]) [facility] ([facility]) [address] [place] [address] 01332 Nucleated RBC/100 WBC (Bld) [Ratio] 0.0 /100 WBCs Normal 0.0-0.0 [facility] Comment on above: Performed By: #### 1 9123-9 #### OMERO KNIGHT ([id number]) [facility] ([facility]) [address] [place] [address] 41679 Platelets (Bld) [#/Vol] 178 x10*3/uL Normal 150-450 [facility] Comment on above: Performed By: #### 1 9123-9 #### OMERO KNIGHT ([id number]) [facility] ([facility]) [address] [place], [place] [address] RBC (Bld) [#/Vol] 3.10 x10*6/uL Low 4.00-5.20 [facility] Comment on above: Performed By: #### 1 9123-9 #### OMERO KNIGHT ([id number]) [facility] ([facility]) [address] [place] [address] WBC (Bld) [#/Vol] 8.0 x10*3/uL Normal 4.4-11.3 [facility] Comment on above: Performed By: #### 1 9123-9 #### OMERO KNIGHT ([id number]) [facility] ([facility]) [address] [place] [address] Calcidiolon 11-19-2023 25-hydroxyvitamin D3 [Mass/Vol] 51 ng/mL Normal 30-100 [facility] Comment on above: Order Comment: Defic iency: < 20 ng/mlInsufficiency: 20-29 ng/mlSufficiency: 30-100 ng/mlThis assay accurately quantifies the sum of Vitamin D3, 25-Hydroxy and Vitamin D2,25-Hydroxy. Performed By: #### 1 9123-9 #### OMERO KNIGHT ([id number]) [facility] ([facility]) [address] [place] [address] Cobalaminson 11-19-2023 Cobalamin (Vitamin B12) [Mass/Vol] 374 pg/mL Normal 211-911 [facility] Comment on above: Performed By: #### 1 9123-9 #### OMERO KNIGHT ([id number]) [facility] ([facility]) [address] [place] [address] Glucose Test strip manual (B ld) [Mass/Vol]on 11-19-2023 Glucose [Mass/Vol] 170 mg/dL High 74 - 99 mg/dL [facility] Interpretation and review of laboratory results Abnormal [facility] Glucose [Mass/Vol] 170 mg/dL High 74-99 [facility] Comment on above: Performed By: #### 1 9123-9 #### OMERO KNIGHT ([id number]) [facility] ([facility]) [address] [place] [address] 80659 Glucose [Mass/Vol] 189 mg/dL High 74 - 99 mg/dL [facility] Interpretation and review of laboratory results Abnormal [facility] Glucose [Mass/Vol] 189 mg/dL High 74-99 [facility] Comment on above: Performed By: #### 1 9123-9 #### OMERO KNIGHT ([id number]) [facility] ([facility]) [address] [place] [address] 51775 Glucose [Mass/Vol] 157 mg/dL High 74 - 99 mg/dL [facility] Interpretation and review of laboratory results Abnormal [facility] Glucose [Mass/Vol] 157 mg/dL High 74-99 [facility] Comment on above: Performed By: #### 1 9123-9 #### OMERO KNIGHT ([id number]) [facility] ([facility]) [address] [place] [address] 48910 Glucose [Mass/Vol] 124 mg/dL High 74 - 99 mg/dL [facility] Interpretation and review of laboratory results Abnormal [facility] Glucose [Mass/Vol] 124 mg/dL High 74-99 [facility] Comment on above: Performed By: #### 1 9123-9 #### OMERO KNIGHT ([id number]) [facility] ([facility]) [address] [place] [address] 34452 Magnesiumon 11-19-2023 Magnesium [Mass/Vol] 1.46 mg/dL Low 1.60 - 2.40 mg/dL [facility] Magnesium [Mass/Vol] 1.46 mg/dL Low 1.60-2.40 [facility] Comment on above: Performed By: #### 1 9123-9 #### OMERO KNIGHT ([id number]) [facility] ([facility]) [address] [place] [address] No Panel Informationon 11-18 Interpretation and review of laboratory results Normal [facility] Interpretation and review of laboratory results Abnormal [facility] Renal function 2000 panelon 11-19-2023 Albumin BCP dye [Mass/Vol] 2.4 g/dL Low 3.4 - 5.0 g/dL [facility] Anion gap [Moles/Vol] 11 mmol/L 10 - 2 0 mmol/L [facility] Calcium [Mass/Vol] 8.0 mg/dL Low 8.6 - 10. 6 mg/dL [facility] Chloride [Moles/Vol] 100 mmol/L 98 - 10 7 mmol/L [facility] CO2 [Moles/Vol] 31 mmol/L 21 - 32 mmol/L [facility] Creatinine [Mass/Vol] 0.61 mg/dL 0.50 - 1.05 mg/dL [facility] eGFR - PINF [facility] Glucose [Mass/Vol] 122 mg/dL High 74 - 99 mg/dL [facility] Phosphate [Mass/Vol] 2.8 mg/dL 2.5 - 4 .9 mg/dL [facility] Potassium [Moles/Vol] 3.8 mmol/L 3.5 - 5.3 mmol/L [facility] Sodium [Moles/Vol] 138 mmol/L 136 - 145 mmol/L [facility] Urea nitrogen [Mass/Vol] 14 mg/dL 6 - 23 mg/dL [facility] Albumin BCP dye [Mass/Vol] 2.4 g/dL Low 3.4-5.0 [facility] Comment on above: Performed By: #### 1 9123-9 #### OMERO KNIGHT ([id number]) [facility] ([facility]) [address] [place], [place] [address] Anion gap [Moles/Vol] 11 mmol/L Normal 10-20 [facility] Comment on above: Performed By: #### 1 9123-9 #### OMERO KNIGHT ([id number]) [facility] ([facility]) [address] [place] [address] Calcium [Mass/Vol] 8.0 mg/dL Low 8.6-10.6 [facility] Comment on above: Performed By: #### 1 9123-9 #### OMERO KNIGHT ([id number]) [facility] ([facility]) [address] [place] [address] Chloride [Moles/Vol] 100 mmol/L Normal 98-107 [facility] Comment on above: Performed By: #### 1 9123-9 #### OMERO KNIGHT ([id number]) [facility] ([facility]) [address] [place] [address] CO2 [Moles/Vol] 31 mmol/L Normal 21-32 [facility] Comment on above: Performed By: #### 1 9123-9 #### OMERO KNIGHT ([id number]) [facility] ([facility]) [address] [place] [address] 37443 Creatinine [Mass/Vol] 0.61 mg/dL Normal 0.50-1.05 [facility] Comment on above: Performed By: #### 1 9123-9 #### OMERO KNIGHT ([id number]) [facility] ([facility]) [address] [place] [address] 82547 GFR/1.73 sq M.predicted MDRD (S/P/Bld) [Vol rate/Area] mL/min/{1.73_m2} Normal >60 [facility] Comment on above: Result Comment: Calc ulations of estimated GFR are performed using the 2020 CKD-EPI Study Refit equation without the race variable for the IDMS-Traceable creatinine methods. https://jasn.asnjournals.org/content//ASN.99308 58163 Performed By: #### 1 9123-9 #### OMERO KNIGHT ([id number]) [facility] ([facility]) [address] [place] [address] Glucose [Mass/Vol] 122 mg/dL High 74-99 [facility] Comment on above: Performed By: #### 1 9123-9 #### OMERO KNIGHT ([id number]) [facility] ([facility]) [address] [place] [address] 63502 Phosphate [Mass/Vol] 2.8 mg/dL Normal 2.5-4.9 [facility] Comment on above: Result Comment: The performance characteristics of phosphorus testing in heparinized plasma have been validated by the individual laboratory site where testing is performed. Testing on heparinized plasma is not approved by the FDA; however, such approval is not necessary. Performed By: #### 1 9123-9 #### OMERO KNIGHT ([id number]) [facility] ([facility]) [address] [place] [address] 69672 Potassium [Moles/Vol] 3.8 mmol/L Normal 3.5-5.3 [facility] Comment on above: Performed By: #### 1 9123-9 #### OMERO KNIGHT ([id number]) [facility] ([facility]) [address] [place] [address] 97342 Sodium [Moles/Vol] 138 mmol/L Normal 136-145 [facility] Comment on above: Performed By: #### 1 9123-9 #### OMERO KNIGHT ([id number]) [facility] ([facility]) [address] [place], [place] [address] Urea nitrogen [Mass/Vol] 14 mg/dL Normal 6-23 [facility] Comment on above: Performed By: #### 1 9123-9 #### OMERO KNIGHT ([id number]) [facility] ([facility]) [address] [place] [address] 05585 TSH WITH REFLEX TO FREE T4 I F ABNORMALon 11-19-2023 TSH Qn 0.45 m[IU]/L Normal 0.44-3.98 [facility] Comment on above: Order Comment: TSH t esting is performed using different testing methodology at [facility] than at other [facility]. Direct result comparisons should only be made within the same method. Performed By: #### 1 9123-9 #### OMREO KNIGHT ([id number]) [facility] ([facility]) [address] [place] [address] 25676 TSH with reflex to Free T4 i f abnormalon 11-19-2023 Interpretation and review of laboratory results Normal [facility] TSH Qn 0.45 m[IU]/L [facility] Vancomycinon 11-19-2023 Vancomycin [Mass/Vol] 16.0 ug/mL 5.0 - 20.0 ug/mL [facility] Vancomycin [Mass/Vol] 16.0 ug/mL Normal 5.0-20.0 [facility] Comment on above: Order Comment: Vanco [...] ug/mL Performed By: #### 1 9123-9 #### JAMIL EUGENE ([id number]) [facility] ([facility]) [address] [place] [address] Vancomycin [Mass/Vol]on 11-07 Interpretation and review of laboratory results Normal [facility] Vitamin B12on 11-19-2023 Cobalamin (Vitamin B12) [Mass/Vol] 374 pg/mL 211 - 911 pg/mL [facility] Vitamin D 25-Hydroxy,Total ( for eval of Vitamin D levels)on 11-19-2023 25-hydroxyvitamin D3 [Mass/Vol] 51 ng/mL 30 - 100 ng/mL [facility] CBC W Auto Differential pane l (Bld)on 11-18-2023 Basophils (Bld) [#/Vol] 0.03 10*3/uL [facility] Basophils/100 WBC (Bld) 0.3 % 0.0 - 2.0 % [facility] Eosinophils (Bld) [#/Vol] 0.22 10*3/uL [facility] Eosinophils/100 WBC (Bld) 2.5 % 0.0 - 6.0 % [facility] Erythrocyte distribution width (RBC) [Ratio] 16.5 % High 11.5 - 14.5 % [facility] Hematocrit (Bld) [Volume fraction] 28.0 % Low 36.0 - 46.0 % [facility] Hemoglobin (Bld) [Mass/Vol] 8.7 g/dL Low 12.0 - 16.0 g/dL [facility] Immature granulocytes (Bld) [#/Vol] 0.04 10*3/uL [facility] Immature granulocytes/100 WBC (Bld) 0.5 % 0.0 - 0.9 % [facility] Interpretation and review of laboratory results Abnormal [facility] Lymphocytes (Bld) [#/Vol] 3.01 10*3/uL High [facility] Lymphocytes/100 WBC (Bld) 34.3 % 13.0 - 44.0 % [facility] MCH (RBC) [Entitic mass] 26.9 pg 26.0 - 34.0 pg [facility] MCHC (RBC) [Mass/Vol] 31.1 g/dL Low 32.0 - 36.0 g/dL [facility] MCV (RBC) [Entitic vol] 87 fL 80 - 100 fL [facility] Monocytes (Bld) [#/Vol] 0.77 10*3/uL [facility] Monocytes/100 WBC (Bld) 8.8 % 2.0 - 10.0 % [facility] Neutrophils (Bld) [#/Vol] 4.70 10*3/uL [facility] Neutrophils/100 WBC (Bld) 53.6 % 40.0 - 80.0 % [facility] Nucleated RBC/100 WBC (Bld) [Ratio] 0.0 % [facility] Platelets (Bld) [#/Vol] 186 10*3/uL [facility] RBC (Bld) [#/Vol] 3.23 10*6/uL Low [facility] WBC (Bld) [#/Vol] 8.8 10*3/uL [facility] Basophils (Bld) [#/Vol] 0.03 x10*3/uL Normal 0.00-0.10 [facility] Comment on above: Performed By: #### 189-8 #### OMERO KNIGHT ([id number]) [facility] ([facility]) [address] [place] [address] 82538 Basophils/100 WBC (Bld) 0.3 % Normal 0.0-2.0 [facility] Comment on above: Performed By: #### 0-8 #### OMERO KNIGHT ([id number]) [facility] ([facility]) [address] [place] [address] 09787 Eosinophils (Bld) [#/Vol] 0.22 x10*3/uL Normal 0.00-0.40 [facility] Comment on above: Performed By: #### 189-8 #### OMERO KNIGHT ([id number]) [facility] ([facility]) [address] [place] [address] 79491 Eosinophils/100 WBC (Bld) 2.5 % Normal 0.0-6.0 [facility] Comment on above: Performed By: #### 189-8 #### OMERO KNIGHT ([id number]) [facility] ([facility]) [address] [place] [address] 92869 Erythrocyte distribution width (RBC) [Ratio] 16.5 % High 11.5-14.5 [facility] Comment on above: Performed By: #### 189-8 #### OMERO KNIGHT ([id number]) [facility] ([facility]) [address] [place] [address] 48959 Hematocrit (Bld) [Volume fraction] 28.0 % Low 36.0-46.0 [facility] Comment on above: Performed By: #### 189-8 #### OMERO KNIGHT ([id number]) [facility] ([facility]) [address] [place] [address] 93822 Hemoglobin (Bld) [Mass/Vol] 8.7 g/dL Low 12.0-16.0 [facility] Comment on above: Performed By: #### 0-8 #### OMERO KNIGHT ([id number]) [facility] ([facility]) [address] [place] [id number] Immature granulocytes (Bld) [#/Vol] 0.04 x10*3/uL Normal 0.00-0.50 [facility] Comment on above: Performed By: #### 5 0190-8 #### OMERO KNIGHT ([id number]) [facility] ([facility]) [address] [place] [address] [id number] Immature granulocytes/100 WBC (Bld) 0.5 % Normal 0.0-0.9 [facility] Comment on above: Result Comment: Martina ture Granulocyte Count (IG) includes promyelocytes, myelocytes and metamyelocytes but does not include bands. Percent differential counts (%) should be interpreted in the context of the absolute cell counts (cells/UL). Performed By: #### 5 0190-8 #### OMERO KNIGHT ([id number]) [facility] ([facility]) [address] [place] [address] [id number] Lymphocytes (Bld) [#/Vol] 3.01 x10*3/uL High 0.80-3.00 [facility] Comment on above: Performed By: #### 5 0190-8 #### OMERO KNIGHT ([id number]) [facility] ([facility]) [address] [place] [address] [id number] Lymphocytes/100 WBC (Bld) 34.3 % Normal 13.0-44.0 [facility] Comment on above: Performed By: #### 5 0190-8 #### OMERO KNIGHT ([id number]) [facility] ([facility]) [address] [place] [address] 19180 MCH (RBC) [Entitic mass] 26.9 pg Normal 26.0-34.0 [facility] Comment on above: Performed By: #### 5 0190-8 #### OMERO KNIGHT ([id number]) [facility] ([facility]) [address] [place] [address] 89527 MCHC (RBC) [Mass/Vol] 31.1 g/dL Low 32.0-36.0 [facility] Comment on above: Performed By: #### 5 0190-8 #### OMERO KNIGHT ([id number]) [facility] ([facility]) [address] [place] [address] 23986 MCV (RBC) [Entitic vol] 87 fL Normal 80-100 [facility] Comment on above: Performed By: #### 5 0190-8 #### OMERO KNIGHT ([id number]) [facility] ([facility]) [address] [place] [address] 74238 Monocytes (Bld) [#/Vol] 0.77 x10*3/uL Normal 0.05-0.80 [facility] Comment on above: Performed By: #### 5 0190-8 #### OMERO KNIGHT ([id number]) [facility] ([facility]) [address] [place] [address] 40452 Monocytes/100 WBC (Bld) 8.8 % Normal 2.0-10.0 [facility] Comment on above: Performed By: #### 5 0190-8 #### OMERO KNIGHT ([id number]) [facility] ([facility]) [address] [place] [address] 55515 Neutrophils (Bld) [#/Vol] 4.70 x10*3/uL Normal 1.60-5.50 [facility] Comment on above: Result Comment: Perc ent differential counts (%) should be interpreted in the context of the absolute cell counts (cells/uL). Performed By: #### 5 0190-8 #### OMERO KNIGHT ([id number]) [facility] ([facility]) [address] [place] [address] 90826 Neutrophils/100 WBC (Bld) 53.6 % Normal 40.0-80.0 [facility] Comment on above: Performed By: #### 5 0190-8 #### OMERO KNIGHT ([id number]) [facility] ([facility]) [address] [place] [address] 73489 Nucleated RBC/100 WBC (Bld) [Ratio] 0.0 /100 WBCs Normal 0.0-0.0 [facility] Comment on above: Performed By: #### 5 0190-8 #### OMERO KNIGHT ([id number]) [facility] ([facility]) [address] [place] [address] 65211 Platelets (Bld) [#/Vol] 186 x10*3/uL Normal 150-450 [facility] Comment on above: Performed By: #### 5 0190-8 #### OMERO KNIGHT ([id number]) [facility] ([facility]) [address] [place] [address] 21475 RBC (Bld) [#/Vol] 3.23 x10*6/uL Low 4.00-5.20 [facility] Comment on above: Performed By: #### 5 0190-8 #### OMERO KNIGHT ([id number]) [facility] ([facility]) [address] [place] [address] 24974 WBC (Bld) [#/Vol] 8.8 x10*3/uL Normal 4.4-11.3 [facility] Comment on above: Performed By: #### 5 0190-8 #### OMERO KNIGHT ([id number]) [facility] ([facility]) [address] [place] [address] 97145 Glucose Test strip manual (B ld) [Mass/Vol]on 11-18-2023 Glucose [Mass/Vol] 156 mg/dL High 74 - 99 mg/dL [facility] Interpretation and review of laboratory results Abnormal [facility] Glucose [Mass/Vol] 156 mg/dL High 74-99 [facility] Comment on above: Performed By: #### 1 9123-9 #### OMERO KNIGHT ([id number]) [facility] ([facility]) [address] [place] [address] 37354 Glucose [Mass/Vol] 180 mg/dL High 74 - 99 mg/dL [facility] Interpretation and review of laboratory results Abnormal [facility] Glucose [Mass/Vol] 180 mg/dL High 74-99 [facility] Comment on above: Performed By: #### 1 9123-9 #### OMERO KNIGHT ([id number]) [facility] ([facility]) [facility] [place] [address] Glucose [Mass/Vol] 173 mg/dL High 74 - 99 mg/dL [facility] Interpretation and review of laboratory results Abnormal [facility] Glucose [Mass/Vol] 173 mg/dL High 74-99 [facility] Comment on above: Performed By: #### 1 9123-9 #### OMERO KNIGHT ([id number]) [facility] ([facility]) [address] [place] [address] Glucose [Mass/Vol] 130 mg/dL High 74 - 99 mg/dL [facility] Interpretation and review of laboratory results Abnormal [facility] Glucose [Mass/Vol] 130 mg/dL High 74-99 [facility] Comment on above: Performed By: #### 1 9123-9 #### OMERO KNIGHT ([id number]) [facility] ([facility]) [address] [place] [address] Magnesiumon 11-18-2023 Magnesium [Mass/Vol] 1.52 mg/dL Low 1.60 - 2.40 mg/dL [facility] Magnesium [Mass/Vol] 1.52 mg/dL Low 1.60-2.40 [facility] Comment on above: Performed By: #### 5 0190-8 #### OMERO KNIGHT ([id number]) [facility] ([facility]) [address] [place] [address] No Panel Informationon 11-17 Interpretation and review of laboratory results Abnormal [facility] Renal function 2000 panelon 11-18-2023 Albumin BCP dye [Mass/Vol] 2.5 g/dL Low 3.4 - 5.0 g/dL [facility] Anion gap [Moles/Vol] 13 mmol/L 10 - 2 0 mmol/L [facility] Calcium [Mass/Vol] 8.0 mg/dL Low 8.6 - 10. 6 mg/dL [facility] Chloride [Moles/Vol] 98 mmol/L 98 - 10 7 mmol/L [facility] CO2 [Moles/Vol] 30 mmol/L 21 - 32 mmol/L [facility] Creatinine [Mass/Vol] 0.66 mg/dL 0.50 - 1.05 mg/dL [facility] eGFR - PINF [facility] Glucose [Mass/Vol] 126 mg/dL High 74 - 99 mg/dL [facility] Phosphate [Mass/Vol] 2.6 mg/dL 2.5 - 4 .9 mg/dL [facility] Potassium [Moles/Vol] 3.9 mmol/L 3.5 - 5.3 mmol/L [facility] Sodium [Moles/Vol] 137 mmol/L 136 - 145 mmol/L [facility] Urea nitrogen [Mass/Vol] 14 mg/dL 6 - 23 mg/dL [facility] Albumin BCP dye [Mass/Vol] 2.5 g/dL Low 3.4-5.0 [facility] Comment on above: Performed By: #### 5 0190-8 #### OMERO KNIGHT ([id number]) [facility] ([facility]) [address] [place] [address] Anion gap [Moles/Vol] 13 mmol/L Normal 10-20 [facility] Comment on above: Performed By: #### 5 0190-8 #### OMERO KNIGHT ([id number]) [facility] ([facility]) [address] [place] [address] Calcium [Mass/Vol] 8.0 mg/dL Low 8.6-10.6 [facility] Comment on above: Performed By: #### 5 0190-8 #### OMERO KNIGHT ([id number]) [facility] ([facility]) [address] [place] [address] Chloride [Moles/Vol] 98 mmol/L Normal 98-107 [facility] Comment on above: Performed By: #### 5 0190-8 #### OMERO KNIGHT ([id number]) [facility] ([facility]) [address] [place] [address] CO2 [Moles/Vol] 30 mmol/L Normal 21-32 [facility] Comment on above: Performed By: #### 5 0190-8 #### OMERO KNIGHT ([id number]) [facility] ([facility]) [address] [place] [address] 17179 Creatinine [Mass/Vol] 0.66 mg/dL Normal 0.50-1.05 [facility] Comment on above: Performed By: #### 5 0190-8 #### OMERO KNIGHT ([id number]) [facility] ([facility]) [address] [place] [address] 99290 GFR/1.73 sq M.predicted MDRD (S/P/Bld) [Vol rate/Area] mL/min/{1.73_m2} Normal >60 [facility] Comment on above: Result Comment: Calc ulations of estimated GFR are performed using the 2020 CKD-EPI Study Refit equation without the race variable for the IDMS-Traceable creatinine methods. https://jasn.asnjournals.org/content/early//ASN.62221 56128 Performed By: #### 5 0190-8 #### OMERO KNIGHT ([id number]) [facility] ([facility]) [address] [place] [address] 77051 Glucose [Mass/Vol] 126 mg/dL High 74-99 [facility] Comment on above: Performed By: #### 5 0190-8 #### OMERO KNIGHT ([id number]) [facility] ([facility]) [address] [place] [address] 96119 Phosphate [Mass/Vol] 2.6 mg/dL Normal 2.5-4.9 [facility] Comment on above: Result Comment: The performance characteristics of phosphorus testing in heparinized plasma have been validated by the individual laboratory site where testing is performed. Testing on heparinized plasma is not approved by the FDA; however, such approval is not necessary. Performed By: #### 5 0190-8 #### OMERO KNIGHT ([id number]) [facility] ([facility]) [address] [place] [address] 67528 Potassium [Moles/Vol] 3.9 mmol/L Normal 3.5-5.3 [facility] Comment on above: Performed By: #### 5 0190-8 #### OMERO KNIGHT ([id number]) [facility] ([facility]) [address] [place], [place] [address] Sodium [Moles/Vol] 137 mmol/L Normal 136-145 [facility] Comment on above: Performed By: #### 5 0190-8 #### OMERO KNIGHT ([id number]) [facility] ([facility]) [address] [place], [place] [address] Urea nitrogen [Mass/Vol] 14 mg/dL Normal 6-23 [facility] Comment on above: Performed By: #### 5 0190-8 #### OMERO KNIGHT ([id number]) [facility] ([facility]) [address] [place] [address] CBC W Auto Differential pane l (Bld)on 11-17-2023 Basophils (Bld) [#/Vol] 0.04 10*3/uL [facility] Basophils/100 WBC (Bld) 0.6 % 0.0 - 2.0 % [facility] Eosinophils (Bld) [#/Vol] 0.11 10*3/uL [facility] Eosinophils/100 WBC (Bld) 1.5 % 0.0 - 6.0 % [facility] Erythrocyte distribution width (RBC) [Ratio] 16.7 % High 11.5 - 14.5 % [facility] Hematocrit (Bld) [Volume fraction] 29.3 % Low 36.0 - 46.0 % [facility] Hemoglobin (Bld) [Mass/Vol] 9.1 g/dL Low 12.0 - 16.0 g/dL [facility] Immature granulocytes (Bld) [#/Vol] 0.09 10*3/uL [facility] Immature granulocytes/100 WBC (Bld) 1.2 % High 0.0 - 0.9 % [facility] Interpretation and review of laboratory results Abnormal [facility] Lymphocytes (Bld) [#/Vol] 2.57 10*3/uL [facility] Lymphocytes/100 WBC (Bld) 35.4 % 13.0 - 44.0 % [facility] MCH (RBC) [Entitic mass] 26.5 pg 26.0 - 34.0 pg [facility] MCHC (RBC) [Mass/Vol] 31.1 g/dL Low 32.0 - 36.0 g/dL [facility] MCV (RBC) [Entitic vol] 85 fL 80 - 100 fL [facility] Monocytes (Bld) [#/Vol] 0.81 10*3/uL High [facility] Monocytes/100 WBC (Bld) 11.2 % 2.0 - 10.0 % [facility] Neutrophils (Bld) [#/Vol] 3.64 10*3/uL [facility] Neutrophils/100 WBC (Bld) 50.1 % 40.0 - 80.0 % [facility] Nucleated RBC/100 WBC (Bld) [Ratio] 0.0 % [facility] Platelets (Bld) [#/Vol] 152 10*3/uL [facility] RBC (Bld) [#/Vol] 3.43 10*6/uL Low [facility] WBC (Bld) [#/Vol] 7.3 10*3/uL [facility] Basophils (Bld) [#/Vol] 0.04 x10*3/uL Normal 0.00-0.10 [facility] Comment on above: Performed By: #### 5 0190-8 #### OMERO KNIGHT ([id number]) [facility] ([facility]) [address] [place] [address] 24972 Basophils/100 WBC (Bld) 0.6 % Normal 0.0-2.0 [facility] Comment on above: Performed By: #### 5 0190-8 #### OMERO KNIGHT ([id number]) [facility] ([facility]) [address] [place] [address] 52010 Eosinophils (Bld) [#/Vol] 0.11 x10*3/uL Normal 0.00-0.40 [facility] Comment on above: Performed By: #### 5 0190-8 #### OMERO KNIGHT ([id number]) [facility] ([facility]) [address] [place] [address] 14118 Eosinophils/100 WBC (Bld) 1.5 % Normal 0.0-6.0 [facility] Comment on above: Performed By: #### 5 0190-8 #### OMERO KNIGHT ([id number]) [facility] ([facility]) [address] [place] [address] 19466 Erythrocyte distribution width (RBC) [Ratio] 16.7 % High 11.5-14.5 [facility] Comment on above: Performed By: #### 5 0-8 #### OMERO KNIGHT ([id number]) [facility] ([facility]) [address] [place] [address] 70480 Hematocrit (Bld) [Volume fraction] 29.3 % Low 36.0-46.0 [facility] Comment on above: Performed By: #### 5 0190-8 #### OMERO KNIGHT (65653) [facility] ([facility]) [address] [place] [address] 78310 Hemoglobin (Bld) [Mass/Vol] 9.1 g/dL Low 12.0-16.0 [facility] Comment on above: Performed By: #### 5 0190-8 #### OMERO KNIGHT ([id number]) [facility] ([facility]) [address] [place] [address] 23389 Immature granulocytes (Bld) [#/Vol] 0.09 x10*3/uL Normal 0.00-0.50 [facility] Comment on above: Performed By: #### 5 0190-8 #### OMERO KNIGHT ([id number]) [facility] ([facility]) [address] [place] [address] 03826 Immature granulocytes/100 WBC (Bld) 1.2 % High 0.0-0.9 [facility] Comment on above: Result Comment: Martina ture Granulocyte Count (IG) includes promyelocytes, myelocytes and metamyelocytes but does not include bands. Percent differential counts (%) should be interpreted in the context of the absolute cell counts (cells/UL). Performed By: #### 5 0190-8 #### OMERO KNIGHT ([id number]) [facility] ([facility]) [address] [place] [address] 18792 Lymphocytes (Bld) [#/Vol] 2.57 x10*3/uL Normal 0.80-3.00 [facility] Comment on above: Performed By: #### 5 0190-8 #### OMERO KNIGHT ([id number]) [facility] ([facility]) [address] [place] [address] 30094 Lymphocytes/100 WBC (Bld) 35.4 % Normal 13.0-44.0 [facility] Comment on above: Performed By: #### 189-8 #### OMERO KNIGHT ([id number]) [facility] ([facility]) [address] [place] [address] 56998 MCH (RBC) [Entitic mass] 26.5 pg Normal 26.0-34.0 [facility] Comment on above: Performed By: #### 189-8 #### OMERO KNIGHT ([id number]) [facility] ([facility]) [address] [place] [address] 11106 MCHC (RBC) [Mass/Vol] 31.1 g/dL Low 32.0-36.0 [facility] Comment on above: Performed By: #### 0190-8 #### OMERO KNIGHT ([id number]) [facility] ([facility]) [address] [place] [address] 07663 MCV (RBC) [Entitic vol] 85 fL Normal 80-100 [facility] Comment on above: Performed By: #### 0-8 #### OMERO KNIGHT ([id number]) [facility] ([facility]) [address] [place] [address] 80306 Monocytes (Bld) [#/Vol] 0.81 x10*3/uL High 0.05-0.80 [facility] Comment on above: Performed By: #### 5 0190-8 #### OMERO KNIGHT ([id number]) [facility] ([facility]) [address] [place] [address] 28507 Monocytes/100 WBC (Bld) 11.2 % Normal 2.0-10.0 [facility] Comment on above: Performed By: #### 5 0190-8 #### OMERO KNIGHT ([id number]) [facility] ([facility]) [address] [place] [address] 26047 Neutrophils (Bld) [#/Vol] 3.64 x10*3/uL Normal 1.60-5.50 [facility] Comment on above: Result Comment: Perc ent differential counts (%) should be interpreted in the context of the absolute cell counts (cells/uL). Performed By: #### 5 0190-8 #### OMERO KNIGHT ([id number]) [facility] ([facility]) [address] [place] [address] 17050 Neutrophils/100 WBC (Bld) 50.1 % Normal 40.0-80.0 [facility] Comment on above: Performed By: #### 5 0190-8 #### OMERO KNIGHT ([id number]) [facility] ([facility]) [address] [place] [address] 25178 Nucleated RBC/100 WBC (Bld) [Ratio] 0.0 /100 WBCs Normal 0.0-0.0 [facility] Comment on above: Performed By: #### 5 0190-8 #### OMERO KNIGHT (85725) [facility] ([facility]) [address] [place] [address] 03183 Platelets (Bld) [#/Vol] 152 x10*3/uL Normal 150-450 [facility] Comment on above: Performed By: #### 5 0190-8 #### OMERO KNIGHT (25792) [facility] ([facility]) [address] [place] [address] 27967 RBC (Bld) [#/Vol] 3.43 x10*6/uL Low 4.00-5.20 [facility] Comment on above: Performed By: #### 5 0190-8 #### OMERO KNIGHT (40591) [facility] ([facility]) [address] [place] [address] 81383 WBC (Bld) [#/Vol] 7.3 x10*3/uL Normal 4.4-11.3 [facility] Comment on above: Performed By: #### 5 0190-8 #### OMERO KNIGHT (51061) [facility] ([facility]) [address] [place] [address] 94620 Glucose Test strip manual (B ld) [Mass/Vol]on 11-17-2023 Glucose [Mass/Vol] 169 mg/dL High 74 - 99 mg/dL [facility] Interpretation and review of laboratory results Abnormal [facility] Glucose [Mass/Vol] 169 mg/dL High 74-99 [facility] Comment on above: Performed By: #### 5 0190-8 #### OMERO KNIGHT (77479) [facility] ([facility]) [address] [place] [address] 12197 Glucose [Mass/Vol] 134 mg/dL High 74 - 99 mg/dL [facility] Interpretation and review of laboratory results Abnormal [facility] Glucose [Mass/Vol] 134 mg/dL High 74-99 [facility] Comment on above: Performed By: #### 5 0-8 #### OMERO KNIGHT (33641) [facility] ([facility]) [address] [place] [address] 65837 Glucose [Mass/Vol] 152 mg/dL High 74 - 99 mg/dL [facility] Interpretation and review of laboratory results Abnormal [facility] Glucose [Mass/Vol] 152 mg/dL High 74-99 [facility] Comment on above: Performed By: #### 5 0190-8 #### OMERO KNIGHT ([id number]) [facility] ([facility]) [address] [place] [address] 95922 Glucose [Mass/Vol] 157 mg/dL High 74 - 99 mg/dL [facility] Interpretation and review of laboratory results Abnormal [facility] Glucose [Mass/Vol] 157 mg/dL High 74-99 [facility] Comment on above: Performed By: #### 5 0190-8 ###Chuyita KNIGHT ([id number]) [facility] ([facility]) [address] [place] [address] Magnesiumon 11-17-2023 Magnesium [Mass/Vol] 1.47 mg/dL Low 1.60 - 2.40 mg/dL [facility] Magnesium [Mass/Vol] 1.47 mg/dL Low 1.60-2.40 [facility] Comment on above: Performed By: #### 5 0190-8 #### OMERO KNIGHT ([id number]) [facility] ([facility]) [address] [place] [address] No Panel Informationon 11-16 Interpretation and review of laboratory results Abnormal [facility] Renal function 2000 panelon 11-17-2023 Albumin BCP dye [Mass/Vol] 2.4 g/dL Low 3.4 - 5.0 g/dL [facility] Anion gap [Moles/Vol] 11 mmol/L 10 - 2 0 mmol/L [facility] Calcium [Mass/Vol] 7.6 mg/dL Low 8.6 - 10. 6 mg/dL [facility] Chloride [Moles/Vol] 99 mmol/L 98 - 10 7 mmol/L [facility] CO2 [Moles/Vol] 31 mmol/L 21 - 32 mmol/L [facility] Creatinine [Mass/Vol] 0.63 mg/dL 0.50 - 1.05 mg/dL [facility] eGFR - PINF [facility] Glucose [Mass/Vol] 130 mg/dL High 74 - 99 mg/dL [facility] Phosphate [Mass/Vol] 2.9 mg/dL 2.5 - 4 .9 mg/dL [facility] Potassium [Moles/Vol] 4.0 mmol/L 3.5 - 5.3 mmol/L [facility] Sodium [Moles/Vol] 137 mmol/L 136 - 145 mmol/L [facility] Urea nitrogen [Mass/Vol] 14 mg/dL 6 - 23 mg/dL [facility] Albumin BCP dye [Mass/Vol] 2.4 g/dL Low 3.4-5.0 [facility] Comment on above: Performed By: #### 5 0190-8 #### OMERO KNIGHT (10209) [facility] ([facility]) [facility] [place] [address] Anion gap [Moles/Vol] 11 mmol/L Normal 10-20 [facility] Comment on above: Performed By: #### 5 0190-8 #### OMERO KNIGHT (36381) [facility] ([facility]) [address] [place] [address] 38707 Calcium [Mass/Vol] 7.6 mg/dL Low 8.6-10.6 [facility] Comment on above: Performed By: #### 5 0190-8 #### OMERO KNIGHT (16998) [facility] ([facility]) [address] [place] [address] 23412 Chloride [Moles/Vol] 99 mmol/L Normal 98-107 [facility] Comment on above: Performed By: #### 5 0190-8 #### OMERO KNIGHT (10103) [facility] ([facility]) [address] [place] [address] 62650 CO2 [Moles/Vol] 31 mmol/L Normal 21-32 [facility] Comment on above: Performed By: #### 5 0190-8 #### OMERO KNIGHT (75439) [facility] ([facility]) [address] [place] [address] 77633 Creatinine [Mass/Vol] 0.63 mg/dL Normal 0.50-1.05 [facility] Comment on above: Performed By: #### 5 0190-8 #### OMERO KNIGHT ([id number]) [facility] ([facility]) [address] [place] [address] 14641 GFR/1.73 sq M.predicted MDRD (S/P/Bld) [Vol rate/Area] mL/min/{1.73_m2} Normal >60 [facility] Comment on above: Result Comment: Calc ulations of estimated GFR are performed using the 2020 CKD-EPI Study Refit equation without the race variable for the IDMS-Traceable creatinine methods. https://jasn.asnjournals.org/content/early//ASN.79861 21741 Performed By: #### 5 0190-8 #### OMERO KNIGHT (20469) [facility] ([facility]) [address] [place] [address] 87991 Glucose [Mass/Vol] 130 mg/dL High 74-99 [facility] Comment on above: Performed By: #### 5 0190-8 #### OMERO KNIGHT ([id number]) [facility] ([facility]) [address] [place] [address] 24591 Phosphate [Mass/Vol] 2.9 mg/dL Normal 2.5-4.9 [facility] Comment on above: Result Comment: The performance characteristics of phosphorus testing in heparinized plasma have been validated by the individual laboratory site where testing is performed. Testing on heparinized plasma is not approved by the FDA; however, such approval is not necessary. Performed By: #### 5 0190-8 #### OMERO KNIGHT ([id number]) [facility] ([facility]) [address] [place] [address] 78464 Potassium [Moles/Vol] 4.0 mmol/L Normal 3.5-5.3 [facility] Comment on above: Performed By: #### 5 0190-8 #### OMERO KNIGHT (20418) [facility] ([facility]) [address] [place] [address] 42372 Sodium [Moles/Vol] 137 mmol/L Normal 136-145 [facility] Comment on above: Performed By: #### 5 0190-8 #### OMERO KNIGHT ([id number]) [facility] ([facility]) [address] [place] [address] 32899 Urea nitrogen [Mass/Vol] 14 mg/dL Normal 6-23 [facility] Comment on above: Performed By: #### 5 0190-8 #### OMERO KNIGHT ([id number]) [facility] ([facility]) [address] [place] [address] 10230 XR Chest Single viewon 11-16 [facility] Work Phone: XR Chest Single viewOrdered By: Pastor Barrientos on 11-17-2023 [facility] Work Phone: Bacteria identified Cx Nom ( Unsp spec)on 11-16-2023 Microscopic observation Gram stain Nom (Unsp spec) No polymorphonuclear leukocytes seen [facility] Work Phone: [phone] Microscopic observation Gram stain Nom (Unsp spec) No organisms seen [facility] Work Phone: [phone] [facility] Work Phone: [phone] Microscopic observation Gram stain Nom (Unsp spec) No polymorphonuclear leukocytes seen [facility] Work Phone: Microscopic observation Gram stain Nom (Unsp spec) No organisms seen [facility] Work Phone: [phone] [facility] [facility] Work Phone: [phone] Bedside PICC Imagingon 11-15 IMAGING CBC panel Auto (Bld)on 11-15 Erythrocyte distribution width (RBC) [Ratio] 16.5 % High 11.5 - 14.5 % [facility] Hematocrit (Bld) [Volume fraction] 29.4 % Low 36.0 - 46.0 % [facility] Hemoglobin (Bld) [Mass/Vol] 9.1 g/dL Low 12.0 - 16.0 g/dL [facility] Interpretation and review of laboratory results Abnormal [facility] MCH (RBC) [Entitic mass] 27.0 pg 26.0 - 34.0 pg [facility] MCHC (RBC) [Mass/Vol] 31.0 g/dL Low 32.0 - 36.0 g/dL [facility] MCV (RBC) [Entitic vol] 87 fL 80 - 100 fL [facility] Nucleated RBC/100 WBC (Bld) [Ratio] 0.0 % [facility] Platelets (Bld) [#/Vol] 192 10*3/uL [facility] RBC (Bld) [#/Vol] 3.37 10*6/uL [facility] W[facility] (Bld[facility] [#/Vol] 9.6 10*3/uL [facility] Erythrocyte distribution width (RBC) [Ratio] 16.5 % High 11.5-14.5 [facility] Comment on above: Performed By: #### 2 276-4 #### OMERO KNIGHT ([id number]) [facility] ([facility]) [address] [place] [address] 88439 Hematocrit (Bld) [Volume fraction] 29.4 % Low 36.0-46.0 [facility] Comment on above: Performed By: #### 2 276-4 #### OMREO KNIGHT ([id number]) [facility] ([facility]) [address] [place] [address] 04663 Hemoglobin (Bld) [Mass/Vol] 9.1 g/dL Low 12.0-16.0 [facility] Comment on above: Performed By: #### 2 276-4 #### OMERO KNIGHT ([id number]) [facility] ([facility]) [address] [place] [address] 80892 MCH (RBC) [Entitic mass] 27.0 pg Normal 26.0-34.0 [facility] Comment on above: Performed By: #### 2 276-4 #### OMERO KNIGHT ([id number]) [facility] ([facility]) [address] [place] [address] 87135 MCHC (RBC) [Mass/Vol] 31.0 g/dL Low 32.0-36.0 [facility] Comment on above: Performed By: #### 2 276-4 #### OMERO KNIGHT ([id number]) [facility] ([facility]) [address] [place] [address] 71429 MCV (RBC) [Entitic vol] 87 fL Normal 80-100 [facility] Comment on above: Performed By: #### 2 276-4 #### OMERO KNIGHT ([id number]) [facility] ([facility]) [address] [place] [address] 86274 Nucleated RBC/100 WBC (Bld) [Ratio] 0.0 /100 WBCs Normal 0.0-0.0 [facility] Comment on above: Performed By: #### 2 276-4 #### OMERO KNIGHT ([id number]) [facility] ([facility]) [address] [place] [address] 08355 Platelets (Bld) [#/Vol] 192 x10*3/uL Normal 150-450 [facility] Comment on above: Performed By: #### 2 276-4 #### OMERO KNIGHT ([id number]) [facility] ([facility]) [address] [place], [place] [address] RBC (Bld) [#/Vol] 3.37 x10*6/uL Low 4.00-5.20 [facility] Comment on above: Performed By: #### 2 276-4 #### OMERO KNIGHT ([id number]) [facility] ([facility]) [address] [place] [address] 19186 WBC (Bld) [#/Vol] 9.6 x10*3/uL Normal 4.4-11.3 [facility] Comment on above: Performed By: #### 2 276-4 #### OMERO KNIGHT ([id number]) [facility] ([facility]) [address] [place] [address] Glucose Test strip manual (B ld) [Mass/Vol]on 11-16-2023 Glucose [Mass/Vol] 164 mg/dL High 74 - 99 mg/dL [facility] Interpretation and review of laboratory results Abnormal [facility] Glucose [Mass/Vol] 164 mg/dL High 74-99 [facility] Comment on above: Performed By: #### 2 276-4 #### OMERO KNIGHT ([id number]) [facility] ([facility]) [address] [place] [address] 88699 Glucose [Mass/Vol] 168 mg/dL High 74 - 99 mg/dL [facility] Interpretation and review of laboratory results Abnormal [facility] Glucose [Mass/Vol] 168 mg/dL High 74-99 [facility] Comment on above: Performed By: #### 2 276-4 #### OMERO KNIGHT ([id number]) [facility] ([facility]) [facility] [place] [address] Glucose [Mass/Vol] 165 mg/dL High 74 - 99 mg/dL [facility] Interpretation and review of laboratory results Abnormal [facility] Glucose [Mass/Vol] 165 mg/dL High 74-99 [facility] Comment on above: Performed By: #### 2 276-4 #### OMERO KNIGHT ([id number]) [facility] ([facility]) [address] [place] [address] 22289 Glucose [Mass/Vol] 125 mg/dL High 74 - 99 mg/dL [facility] Interpretation and review of laboratory results Abnormal [facility] Glucose [Mass/Vol] 125 mg/dL High 74-99 [facility] Comment on above: Performed By: #### 2 276-4 #### OMERO KNIGHT ([id number]) [facility] ([facility]) [address] [place] [address] 67094 Magnesiumon 11-16-2023 Magnesium [Mass/Vol] 1.76 mg/dL 1.60 - 2.40 mg/dL [facility] Magnesium [Mass/Vol] 1.76 mg/dL Normal 1.60-2.40 [facility] Comment on above: Performed By: #### 2 276-4 #### OMERO KNIGHT ([id number]) [facility] ([facility]) [address] [place] [address] 99780 Magnesium [Mass/Vol]on 11-15 Interpretation and review of laboratory results Normal [facility] No Panel Informationon 11-15 [facility] PICC >5 YR BEDSIDE IMAGINGon 11-16-2023 PICC >5 YR BEDSIDE IMAGING These images are not reportable by radiology and will not be interpreted by Radiologists. Normal [facility] Renal function 2000 panelon 11-16-2023 Albumin BCP dye [Mass/Vol] 2.7 g/dL Low 3.4 - 5.0 g/dL [facility] Anion gap [Moles/Vol] 12 mmol/L 10 - 2 0 mmol/L [facility] Calcium [Mass/Vol] 8.4 mg/dL Low 8.6 - 10. 6 mg/dL [facility] Chloride [Moles/Vol] 97 mmol/L Low 98 - 10 7 mmol/L [facility] CO2 [Moles/Vol] 31 mmol/L 21 - 32 mmol/L [facility] Creatinine [Mass/Vol] 0.77 mg/dL 0.50 - 1.05 mg/dL [facility] GFR/1.73 sq M.predicted among non-blacks MDRD (S/P/Bld) [Vol rate/Area] 81 mL/min/{1.73_m2} - PINF [facility] Glucose [Mass/Vol] 141 mg/dL High 74 - 99 mg/dL [facility] Interpretation and review of laboratory results Abnormal [facility] Phosphate [Mass/Vol] 2.0 mg/dL Low 2.5 - 4 .9 mg/dL [facility] Potassium [Moles/Vol] 3.3 mmol/L Low 3.5 - 5.3 mmol/L [facility] Sodium [Moles/Vol] 137 mmol/L 136 - 145 mmol/L [facility] Urea nitrogen [Mass/Vol] 17 mg/dL 6 - 23 mg/dL [facility] Albumin BCP dye [Mass/Vol] 2.7 g/dL Low 3.4-5.0 [facility] Comment on above: Performed By: #### 2 276-4 #### OMERO KNIGHT ([id number]) [facility] ([facility]) [address] [place] [address] 24125 Anion gap [Moles/Vol] 12 mmol/L Normal 10-20 [facility] Comment on above: Performed By: #### 2 276-4 #### OMERO KNIGHT ([id number]) [facility] ([facility]) [address] [place] [address] 49966 Calcium [Mass/Vol] 8.4 mg/dL Low 8.6-10.6 [facility] Comment on above: Performed By: #### 2 276-4 #### OMERO KNIGHT ([id number]) [facility] ([facility]) [address] [place] [address] Chloride [Moles/Vol] 97 mmol/L Low 98-107 [facility] Comment on above: Performed By: #### 2 276-4 #### OMERO KNIGHT ([id number]) [facility] ([facility]) [address] [place] [address] CO2 [Moles/Vol] 31 mmol/L Normal 21-32 [facility] Comment on above: Performed By: #### 2 276-4 #### OMERO KNIGHT ([id number]) [facility] ([facility]) [address] [place] [address] 87447 Creatinine [Mass/Vol] 0.77 mg/dL Normal 0.50-1.05 [facility] Comment on above: Performed By: #### 2 276-4 #### OMERO KNIGHT ([id number]) [facility] ([facility]) [address] [place] [address] 79250 Glomerular filtration rate/1.73 sq M.predicted 81 mL/min/1.73m*2 Normal >60 [facility] Comment on above: Result Comment: Calc ulations of estimated GFR are performed using the 2020 CKD-EPI Study Refit equation without the race variable for the IDMS-Traceable creatinine methods. https://jasn.asnjournals.org/content/early//ASN.66453 91200 Performed By: #### 2 276-4 #### OMERO KNIGHT ([id number]) [facility] ([facility]) [address] [place] [address] 41442 Glucose [Mass/Vol] 141 mg/dL High 74-99 [facility] Comment on above: Performed By: #### 2 276-4 #### OMERO KNIGHT ([id number]) [facility] ([facility]) [address] [place] [address] 23536 Phosphate [Mass/Vol] 2.0 mg/dL Low 2.5-4.9 [facility] Comment on above: Result Comment: The performance characteristics of phosphorus testing in heparinized plasma have been validated by the individual laboratory site where testing is performed. Testing on heparinized plasma is not approved by the FDA; however, such approval is not necessary. Performed By: #### 2 276-4 #### OMERO KNIGHT (22859) [facility] ([facility]) [address] [place] [address] Potassium [Moles/Vol] 3.3 mmol/L Low 3.5-5.3 [facility] Comment on above: Performed By: #### 2 276-4 #### OMERO KNIGHT ([id number]) [facility] ([facility]) [address] [place] [address] Sodium [Moles/Vol] 137 mmol/L Normal 136-145 [facility] Comment on above: Performed By: #### 2 276-4 #### OMERO KNIGHT (69452) [facility] ([facility]) [facility] [place] [address] Urea nitrogen [Mass/Vol] 17 mg/dL Normal 6-23 [facility] Comment on above: Performed By: #### 2 276-4 #### OMERO KNIGHT ([id number]) [facility] ([facility]) [facility] [place] [address] Tissue/Wound Culture/Smearon 11-16-2023 Bacteria identified Cx Nom (Unsp spec) No growth aerobically and anaerobically [facility] Work Phone: Bacteria identified Cx Nom (Unsp spec) No growth aerobically and anaerobically [facility] Work Phone: XR CHEST 1 VIEWon 11-16-2023 XR CHEST 1 VIEW Interpreted By: Pastor Chowdhury and Niraj Moreno STUDY: XR CHEST 1 VIEW; 11/16/2023 5:05 pm INDICATION: Signs/Symptoms:PICC PLACEMENT. COMPARISON: 11/13/2023 chest radiograph ACCESSION NUMBER(S): [id number] ORDERING CLINICIAN: RU ORTEGA FINDINGS: AP radiograph [...] as stated. This study was interpreted at [facility], [place], [place]. MACRO: None Signed by: Pastor Barrientos 11/17/2023 6:46 AM Dictation workstation: [id number] Normal [facility] XR Chest Single viewon 11-15 Radiology Study observation (narrative) [facility] Work Phone: Bacteria identified Cx Nom ( Unsp spec)Ordered By: Betty Hutchins on 11-15-2023 Microscopic observation Gram stain Nom (Unsp spec) (1+) Rare Polymorphonuclear leukocytes [facility] Microscopic observation Gram stain Nom (Unsp spec) No organisms seen [facility] CBC panel Auto (Bld)on 11-14 Erythrocyte distribution width (RBC) [Ratio] 16.2 % High 11.5 - 14.5 % [facility] Hematocrit (Bld) [Volume fraction] 31.4 % Low 36.0 - 46.0 % [facility] Hemoglobin (Bld) [Mass/Vol] 9.8 g/dL Low 12.0 - 16.0 g/dL [facility] Interpretation and review of laboratory results Abnormal [facility] MCH (RBC) [Entitic mass] 26.8 pg 26.0 - 34.0 pg [facility] MCHC (RBC) [Mass/Vol] 31.2 g/dL Low 32.0 - 36.0 g/dL [facility] MCV (RBC) [Entitic vol] 86 fL 80 - 100 fL [facility] Nucleated RBC/100 WBC (Bld) [Ratio] 0.0 % [facility] Platelets (Bld) [#/Vol] 234 10*3/uL [facility] RBC (Bld) [#/Vol] 3.65 10*6/uL Low Unive [facility] WBC (Bld) [#/Vol] 10.9 10*3/uL [facility] [place] [place] Erythrocyte distribution width (RBC) [Ratio] 16.2 % High 11.5-14.5 [facility] Comment on above: Performed By: #### 2 4323-8 #### OMERO KNIGHT ([id number]) [facility] ([facility]) [address] [place] [address] 05531 Hematocrit (Bld) [Volume fraction] 31.4 % Low 36.0-46.0 [facility] Comment on above: Performed By: #### 2 4323-8 #### OMERO KNIGHT ([id number]) [facility] ([facility]) [address] [place] [address] 72767 Hemoglobin (Bld) [Mass/Vol] 9.8 g/dL Low 12.0-16.0 [facility] Comment on above: Performed By: #### 2 4323-8 #### OMERO KNIGHT ([id number]) [facility] ([facility]) [address] [place] [address] 15110 MCH (RBC) [Entitic mass] 26.8 pg Normal 26.0-34.0 [facility] Comment on above: Performed By: #### 2 4323-8 #### OMERO KNIGHT ([id number]) [facility] ([facility]) [address] [place] [address] 26818 MCHC (RBC) [Mass/Vol] 31.2 g/dL Low 32.0-36.0 [facility] Comment on above: Performed By: #### 2 4323-8 #### OMERO KNIGHT ([id number]) [facility] ([facility]) [address] [place] [address] 33027 MCV (RBC) [Entitic vol] 86 fL Normal 80-100 [facility] Comment on above: Performed By: #### 2 4323-8 #### OMERO KNIGHT ([id number]) [facility] ([facility]) [address] [place] [address] 59278 Nucleated RBC/100 WBC (Bld) [Ratio] 0.0 /100 WBCs Normal 0.0-0.0 [facility] Comment on above: Performed By: #### 2 4323-8 #### OMERO KNIGHT ([id number]) [facility] ([facility]) [address] [place] [address] 51825 Platelets (Bld) [#/Vol] 234 x10*3/uL Normal 150-450 [facility] Comment on above: Performed By: #### 2 4323-8 #### OMERO KNIGHT ([id number]) [facility] ([facility]) [address] [place] [address] 28139 RBC (Bld) [#/Vol] 3.65 x10*6/uL Low 4.00-5.20 [facility] Comment on above: Performed By: #### 2 4323-8 #### OMERO KNIGHT (54249) [facility] ([facility]) [address] [place] [address] 20208 WBC (Bld) [#/Vol] 10.9 x10*3/uL Normal 4.4-11.3 [facility] Comment on above: Performed By: #### 2 4323-8 #### OMERO KNIGHT ([id number]) [facility] ([facility]) [address] [place] [address] 73946 ECG 12 LeadOrdered By: Fabio Bee on 11-15-2023 Atrial Rate 73 BPM [facility] Work Phone: P [place] -24 degrees [facility] Work Phone: [phone] P Offset 148 ms [facility] Work Phone: [phone] P Onset 107 ms [facility] Work Phone: [phone] DE Interval 196 ms [facility] Work Phone: Q Onset 205 ms [facility] Work Phone: QRS Count 12 beats [facility] Work Phone: QRS Duration 106 ms [facility] Work Phone: [phone] QT Interval 384 ms [facility] Work Phone: QTC Calculation(Bazett) [address] [facility] Work Phone: [phone] QTC Fredericia 410 [facility] Work Phone: [phone] R [place] -46 degrees [facility] Work Phone: [phone] T [place] -41 degrees [facility] Work Phone: [phone] T Offset 397 ms [facility] Work Phone: [phone] Ventricular Rate 73 BPM [facility] Work Phone: [phone] [facility] Work Phone: [phone] ECG 12 Leadon 11-15-2023 [facility] Work Phone: Glucose Test strip manual (B ld) [Mass/Vol]on 11-15-2023 Glucose [Mass/Vol] 156 mg/dL High 74 - 99 mg/dL [facility] Interpretation and review of laboratory results Abnormal [facility] Glucose [Mass/Vol] 156 mg/dL High 74-99 [facility] Comment on above: Performed By: #### 2 276-4 #### OMERO KNIGHT ([id number]) [facility] ([facility]) [address] [place] [address] 57159 Glucose [Mass/Vol] 176 mg/dL High 74 - 99 mg/dL [facility] Interpretation and review of laboratory results Abnormal [facility] Glucose [Mass/Vol] 176 mg/dL High 74-99 [facility] Comment on above: Performed By: #### 2 4323-8 #### OMERO KNIGHT ([id number]) [facility] ([facility]) [address] [place] [address] 68647 Glucose [Mass/Vol] 166 mg/dL High 74 - 99 mg/dL [facility] Interpretation and review of laboratory results Abnormal [facility] Glucose [Mass/Vol] 166 mg/dL High 74-99 [facility] Comment on above: Performed By: #### 2 4323-8 #### OMERO KNIGHT ([id number]) [facility] ([facility]) [address] [place] [address] 64442 Glucose [Mass/Vol] 138 mg/dL High 74 - 99 mg/dL [facility] Interpretation and review of laboratory results Abnormal [facility] Glucose [Mass/Vol] 138 mg/dL High 74-99 [facility] Comment on above: Performed By: #### 2 4323-8 #### OMERO KNIGHT ([id number]) [facility] ([facility]) [address] [place] [address] 44090 Magnesiumon 11-15-2023 Magnesium [Mass/Vol] 1.36 mg/dL Low 1.60 - 2.40 mg/dL [facility] Magnesium [Mass/Vol] 1.36 mg/dL Low 1.60-2.40 [facility] Comment on above: Performed By: #### 2 4323-8 #### OMERO KNIGHT ([id number]) [facility] ([facility]) [address] [place], [place] [address] No Panel Informationon 11-14 Blood Expiration Date 12/11/2023 11:59:00 PM EDT [facility] Dispense Status RE [facility] PRODUCT BLOOD TYPE 5100 [facility] PRODUCT CODE [id number] [facility] Unit ABO O [facility] Unit RH Positive [facility] UNIT VOLUME 350 [facility] XM INTEP COMP [facility] Interpretation and review of laboratory results Abnormal [facility] Prepare RBC: 4 Unitson 11-14 Blood Expiration Date 12/12/2023 11:59:00 PM EDT [facility] PRODUCT CODE [id number] [facility] Unit Number [id number] [facility] Unit Number [id number] [facility] Unit Number [id number] [facility] Unit Number [id number] [facility] UNIT VOLUME 288 [facility] Renal function 2000 panelon 11-15-2023 Albumin BCP dye [Mass/Vol] 2.6 g/dL Low 3.4 - 5.0 g/dL [facility] Anion gap [Moles/Vol] 14 mmol/L 10 - 2 0 mmol/L [facility] Calcium [Mass/Vol] 8.1 mg/dL Low 8.6 - 10. 6 mg/dL [facility] Chloride [Moles/Vol] 96 mmol/L Low 98 - 10 7 mmol/L [facility] CO2 [Moles/Vol] 29 mmol/L 21 - 32 mmol/L [facility] Creatinine [Mass/Vol] 0.95 mg/dL 0.50 - 1.05 mg/dL [facility] GFR/1.73 sq M.predicted among non-blacks MDRD (S/P/Bld) [Vol rate/Area] 63 mL/min/{1.73_m2} - PINF [facility] Glucose [Mass/Vol] 183 mg/dL High 74 - 99 mg/dL [facility] Phosphate [Mass/Vol] 3.1 mg/dL 2.5 - 4 .9 mg/dL [facility] Potassium [Moles/Vol] 3.8 mmol/L 3.5 - 5.3 mmol/L [facility] Sodium [Moles/Vol] 135 mmol/L Low 136 - 145 mmol/L [facility] Urea nitrogen [Mass/Vol] 20 mg/dL 6 - 23 mg/dL [facility] Albumin BCP dye [Mass/Vol] 2.6 g/dL Low 3.4-5.0 [facility] Comment on above: Performed By: #### 2 4323-8 #### JAMIL EUGENE ([id number]) [facility] ([facility]) [address] [place] [address] Anion gap [Moles/Vol] 14 mmol/L Normal 10-20 [facility] Comment on above: Performed By: #### 2 4323-8 #### OMERO KNIGHT ([id number]) [facility] ([facility]) [address] [place] [address] Calcium [Mass/Vol] 8.1 mg/dL Low 8.6-10.6 [facility] Comment on above: Performed By: #### 2 4323-8 #### OMERO KNIGHT ([id number]) [facility] ([facility]) [address] [place] [address] 82815 Chloride [Moles/Vol] 96 mmol/L Low 98-107 [facility] Comment on above: Performed By: #### 2 4323-8 #### OMERO KNIGHT ([id number]) [facility] ([facility]) [address] [place] [address] 96039 CO2 [Moles/Vol] 29 mmol/L Normal 21-32 [facility] Comment on above: Performed By: #### 2 4323-8 #### OMERO KNIGHT ([id number]) [facility] ([facility]) [address] [place] [address] 58036 Creatinine [Mass/Vol] 0.95 mg/dL Normal 0.50-1.05 [facility] Comment on above: Performed By: #### 2 4323-8 #### OMERO KNIGHT ([id number]) [facility] ([facility]) [address] [place] [address] 23425 Glomerular filtration rate/1.73 sq M.predicted 63 mL/min/1.73m*2 Normal >60 [facility] Comment on above: Result Comment: Calc ulations of estimated GFR are performed using the 2020 CKD-EPI Study Refit equation without the race variable for the IDMS-Traceable creatinine methods. https://jasn.asnjournals.org/content//ASN.62984 83657 Performed By: #### 2 4323-8 #### OMERO KNIGHT ([id number]) [facility] ([facility]) [address] [place] [address] Glucose [Mass/Vol] 183 mg/dL High 74-99 [facility] Comment on above: Performed By: #### 2 4323-8 #### OMERO KNIGHT ([id number]) [facility] ([facility]) [facility] [place] [address] Phosphate [Mass/Vol] 3.1 mg/dL Normal 2.5-4.9 [facility] Comment on above: Result Comment: The performance characteristics of phosphorus testing in heparinized plasma have been validated by the individual laboratory site where testing is performed. Testing on heparinized plasma is not approved by the FDA; however, such approval is not necessary. Performed By: #### 2 4323-8 #### OMERO KNIGHT ([id number]) [facility] ([facility]) [address] [place] [address] 75453 Potassium [Moles/Vol] 3.8 mmol/L Normal 3.5-5.3 [facility] Comment on above: Performed By: #### 2 4323-8 #### OMERO KNIGHT ([id number]) [facility] ([facility]) [address] [place] [address] 41411 Sodium [Moles/Vol] 135 mmol/L Low 136-145 [facility] Comment on above: Performed By: #### 2 4323-8 #### OMERO KNIGHT ([id number]) [facility] ([facility]) [address] [place] [address] 26191 Urea nitrogen [Mass/Vol] 20 mg/dL Normal 6-23 [facility] Comment on above: Performed By: #### 2 4323-8 #### OMERO KNIGHT ([id number]) [facility] ([facility]) [address] [place] [address] 40836 Tissue/Wound Culture/SmearOr dered By: Betty Hutchins on 11-15-2023 Bacteria identified Cx Nom (Unsp spec) No growth aerobically and anaerobically [facility] Bacteria identifiedon 2023 Bacteria identified Cx Nom (Unsp spec) Test: Tissue/Wound Culture/Smear Specimen Source: SPINE Specimen Type: Swab Specimen Date: 11/14/20231754 Result Date: 11/16/2023 1431 Result Status: Final result Resulting Lab: [facility] [address] [place] [address] CULTURE No growth aerobically and anaerobically STAIN No polymorphonuclear leukocytes seen No organisms seen Normal [facility] Comment on above: Performed By: #### 2 1663-8 #### OMERO KNIGHT ([id number]) [facility] ([facility]) [address] [place] [address] Bacteria identified Cx Nom (Unsp spec) Test: Tissue/Wound Culture/Smear Specimen Source: SPINE Specimen Type: Swab Specimen Date: 11/14/20231732 Result Date: 11/16/2023 1200 Result Status: Final result Resulting Lab: [facility] [address] [place] [address] CULTURE No growth aerobically and anaerobically STAIN No polymorphonuclear leukocytes seen No organisms seen Normal [facility] Comment on above: Performed By: #### 2 4323-8 #### OMERO KNIGHT ([id number]) [facility] ([facility]) [address] [place] [address] CBC panel Auto (Bld)on 11-13 Erythrocyte distribution width (RBC) [Ratio] 15.9 % High 11.5 - 14.5 % [facility] Hematocrit (Bld) [Volume fraction] 34.8 % Low 36.0 - 46.0 % [facility] Hemoglobin (Bld) [Mass/Vol] 10.5 g/dL Low 12.0 - 16.0 g/dL [facility] Interpretation and review of laboratory results Abnormal [facility] MCH (RBC) [Entitic mass] 25.9 pg Low 26.0 - 34.0 pg [facility] MCHC (RBC) [Mass/Vol] 30.2 g/dL Low 32.0 - 36.0 g/dL [facility] MCV (RBC) [Entitic vol] 86 fL 80 - 100 fL [facility] Nucleated RBC/100 WBC (Bld) [Ratio] 0.0 % [facility] Platelets (Bld) [#/Vol] 190 10*3/uL [facility] RBC (Bld) [#/Vol] 4.06 10*6/uL [facility] WBC (Bld) [#/Vol] 6.4 10*3/uL [facility] Erythrocyte distribution width (RBC) [Ratio] 15.9 % High 11.5-14.5 [facility] Comment on above: Performed By: #### 5 8410-2 #### OMERO KNIGHT ([id number]) [facility] ([facility]) [address] [place] [address] 33457 Hematocrit (Bld) [Volume fraction] 34.8 % Low 36.0-46.0 [facility] Comment on above: Performed By: #### 5 8410-2 #### OMERO KNIGHT ([id number]) [facility] ([facility]) [address] [place] [address] 09517 Hemoglobin (Bld) [Mass/Vol] 10.5 g/dL Low 12.0-16.0 [facility] Comment on above: Performed By: #### 5 8410-2 #### OMERO KNIGHT ([id number]) [facility] ([facility]) [address] [place] [address] 85905 MCH (RBC) [Entitic mass] 25.9 pg Low 26.0-34.0 [facility] Comment on above: Performed By: #### 5 8410-2 #### OMERO KNIGHT ([id number]) [facility] ([facility]) [address] [place] [address] 58621 MCHC (RBC) [Mass/Vol] 30.2 g/dL Low 32.0-36.0 [facility] Comment on above: Performed By: #### 5 8410-2 #### OMERO KNIGHT ([id number]) [facility] ([facility]) [address] [place] [address] 79458 MCV (RBC) [Entitic vol] 86 fL Normal 80-100 [facility] Comment on above: Performed By: #### 5 8410-2 #### OMERO KNIGHT ([id number]) [facility] ([facility]) [address] [place] [address] 25611 Nucleated RBC/100 WBC (Bld) [Ratio] 0.0 /100 WBCs Normal 0.0-0.0 [facility] Comment on above: Performed By: #### 5 8410-2 #### OMERO KNIGHT ([id number]) [facility] ([facility]) [address] [place] [address] 44933 Platelets (Bld) [#/Vol] 190 x10*3/uL Normal 150-450 [facility] Comment on above: Performed By: #### 5 8410-2 #### OMERO KNIGHT ([id number]) [facility] ([facility]) [address] [place], [place] [id number] RBC (Bld) [#/Vol] 4.06 x10*6/uL Normal 4.00-5.20 [facility] Comment on above: Performed By: #### 5 8410-2 #### OMERO KNIGHT ([id number]) [facility] ([facility]) [address] [place] [address] 94045 WBC (Bld) [#/Vol] 6.4 x10*3/uL Normal 4.4-11.3 [facility] Comment on above: Performed By: #### 5 8410-2 #### OMERO KNIGHT ([id number]) [facility] ([facility]) [address] [place] [address] Guidance for deep biopsy of Boneon 11-14-2023 [facility] Work Phone: CT Guidance for deep biopsy of BoneOrdered By: Caron Donaldson on 11-14-2023 [facility] Work Phone: Extra Urine Draper Tubeon 08-0 Extra Tube Hold for add-ons. [facility] [place] FLUORO IMAGES NO CHARGEon 11-14-2023 [place] FLUORO IMAGES NO CHARGE These images are not reportable by radiology and will not be interpreted by Radiologists. Normal [facility] Gas and Carbon monoxide and Electrolytes panel (BldA)on 11-14-2023 Anion gap 4 (BldA) [Moles/Vol] 8 Low [facility] Base excess Calc (Bld) [Moles/Vol] 5.0 mmol/L High -2.0 - 3.0 mmol/L [facility] Calcium.ionized (BldA) [Moles/Vol] 1.18 mmol/L 1.10 - 1.33 mmol/L [facility] Chloride (BldA) [Moles/Vol] 101 mmol/L 98 - 107 mmol/L [facility] CO2 (Bld) [Partial pressure] 40 mm[Hg] [facility] Glucose [Mass/Vol] 137 mg/dL High 74 - 99 mg/dL [facility] HCO3 (Bld) [Moles/Vol] 29.1 mmol/L High 22.0 - 26.0 mmol/L [facility] Hematocrit Est (Bld) [Volume fraction] 30.0 % Low 36.0 - 46.0 % [facility] Hemoglobin (Bld) [Mass/Vol] 10.0 g/dL Low 12.0 - 16.0 g/dL [facility] Inhaled oxygen concentration 50 % [facility] Interpretation and review of laboratory results Abnormal [facility] Lactate (BldA) [Moles/Vol] 1.5 mmol/L 0.4 - 2.0 mmol/L [facility] Oxygen (Bld) [Partial pressure] 189 mm[Hg] High [facility] Oxyhemoglobin (BldA) [Mass fraction] 97.7 % 94.0 - 98.0 % [facility] pH (Bld) 7.47 [pH] High 7.38 - 7.42 pH [facility] Potassium (BldA) [Moles/Vol] 3.7 mmol/L 3.5 - 5.3 mmol/L [facility] Sodium (BldA) [Moles/Vol] 134 mmol/L Low 136 - 145 mmol/L [facility] Anion gap 4 (BldA) [Moles/Vol] 8 mmo/L Low 10-25 [facility] Comment on above: Performed By: #### 5 8410-2 #### OMERO KNIGHT ([id number]) [facility] ([facility]) [address] [place] [address] 93754 Base excess Calc (Bld) [Moles/Vol] 5.0 mmol/L High -2.0-3.0 [facility] Comment on above: Performed By: #### 5 8410-2 #### OMERO KNIGHT ([id number]) [facility] ([facility]) [address] [place] [address] 49611 Calcium.ionized (BldA) [Moles/Vol] 1.18 mmol/L Normal 1.10-1.33 [facility] Comment on above: Performed By: #### 5 8410-2 #### OMERO KNIGHT ([id number]) [facility] ([facility]) [address] [place] [address] 54034 Chloride (BldA) [Moles/Vol] 101 mmol/L Normal 98-107 [facility] Comment on above: Performed By: #### 5 8410-2 #### OMERO KNIGHT ([id number]) [facility] ([facility]) [address] [place] [address] 91503 CO2 (Bld) [Partial pressure] 40 mm Hg Normal 38-42 [facility] Comment on above: Performed By: #### 5 8410-2 #### OMERO KNIGHT ([id number]) [facility] ([facility]) [address] [place] [address] 95202 Glucose [Mass/Vol] 137 mg/dL High 74-99 [facility] Comment on above: Performed By: #### 5 8410-2 #### OMERO KNIGHT ([id number]) [facility] ([facility]) [address] [place] [address] 12565 HCO3 (Bld) [Moles/Vol] 29.1 mmol/L High 22.0-26.0 [facility] Comment on above: Performed By: #### 5 8410-2 #### OMERO KNIGHT ([id number]) [facility] ([facility]) [address] [place] [address] 96427 Hematocrit Est (Bld) [Volume fraction] 30.0 % Low 36.0-46.0 [facility] Comment on above: Performed By: #### 5 8410-2 #### OMERO KNIGHT ([id number]) [facility] ([facility]) [address] [place] [address] 93040 Hemoglobin (Bld) [Mass/Vol] 10.0 g/dL Low 12.0-16.0 [facility] Comment on above: Performed By: #### 5 8410-2 #### OMERO KNIGHT ([id number]) [facility] ([facility]) [address] [place] [address] 34568 Inhaled oxygen concentration 50 % Normal [facility] Comment on above: Performed By: #### 5 8410-2 #### OMERO KNIGHT ([id number]) [facility] ([facility]) [address] [place] [address] 77423 Lactate (BldA) [Moles/Vol] 1.5 mmol/L Normal 0.4-2.0 [facility] Comment on above: Performed By: #### 5 8410-2 #### OMERO KNIGHT ([id number]) [facility] ([facility]) [address] [place] [address] 20804 Oxygen (Bld) [Partial pressure] 189 mm Hg High 85-95 [facility] Comment on above: Performed By: #### 5 8410-2 #### OMERO KNIGHT ([id number]) [facility] ([facility]) [address] [place] [address] 12529 Oxyhemoglobin (BldA) [Mass fraction] 97.7 % Normal 94.0-98.0 [facility] Comment on above: Performed By: #### 5 8410-2 #### OMERO KNIGHT ([id number]) [facility] ([facility]) [address] [place] [address] 13672 pH (Bld) 7.47 [pH] High 7.38-7.42 [facility] Comment on above: Performed By: #### 5 8410-2 #### OMERO KNIGHT ([id number]) [facility] ([facility]) [facility] [place] [address] Potassium (BldA) [Moles/Vol] 3.7 mmol/L Normal 3.5-5.3 [facility] Comment on above: Performed By: #### 5 8410-2 #### OMERO KNIGHT ([id number]) [facility] ([facility]) [address] [place] [address] 40863 Sodium (BldA) [Moles/Vol] 134 mmol/L Low 136-145 [facility] Comment on above: Performed By: #### 5 8410-2 #### OMERO KNIGHT ([id number]) [facility] ([facility]) [address] [place] [address] 77157 Anion gap 4 (BldA) [Moles/Vol] 5 Low [facility] Base excess Calc (Bld) [Moles/Vol] 6.2 mmol/L High -2.0 - 3.0 mmol/L [facility] Calcium.ionized (BldA) [Moles/Vol] 1.17 mmol/L 1.10 - 1.33 mmol/L [facility] Chloride (BldA) [Moles/Vol] 101 mmol/L 98 - 107 mmol/L [facility] CO2 (Bld) [Partial pressure] 36 mm[Hg] Low [facility] Glucose [Mass/Vol] 120 mg/dL High 74 - 99 mg/dL [facility] HCO3 (Bld) [Moles/Vol] 29.4 mmol/L High 22.0 - 26.0 mmol/L [facility] Hematocrit Est (Bld) [Volume fraction] 31.0 % Low 36.0 - 46.0 % [facility] Hemoglobin (Bld) [Mass/Vol] 10.3 g/dL Low 12.0 - 16.0 g/dL [facility] Inhaled oxygen concentration 50 % [facility] Interpretation and review of laboratory results Abnormal [facility] Lactate (BldA) [Moles/Vol] 1.1 mmol/L 0.4 - 2.0 mmol/L [facility] Oxygen (Bld) [Partial pressure] 191 mm[Hg] High [facility] Oxyhemoglobin (BldA) [Mass fraction] 97.6 % 94.0 - 98.0 % [facility] pH (Bld) 7.52 [pH] High 7.38 - 7.42 pH [facility] Potassium (BldA) [Moles/Vol] 2.8 mmol/L Critically low 3.5 - 5.3 mmol/L [facility] Sodium (BldA) [Moles/Vol] 133 mmol/L Low 136 - 145 mmol/L [facility] Anion gap 4 (BldA) [Moles/Vol] 5 mmo/L Low 10-25 [facility] Comment on above: Performed By: #### 5 8410-2 #### OMERO KNIGHT ([id number]) [facility] ([facility]) [address] [place] [address] Base excess Calc (Bld) [Moles/Vol] 6.2 mmol/L High -2.0-3.0 [facility] Comment on above: Performed By: #### 5 8410-2 #### OMERO KNIGHT ([id number]) [facility] ([facility]) [address] [place], [place] [address] Calcium.ionized (BldA) [Moles/Vol] 1.17 mmol/L Normal 1.10-1.33 [facility] Comment on above: Performed By: #### 5 8410-2 #### OMERO KNIGHT ([id number]) [facility] ([facility]) [address] [place] [address] 21803 Chloride (BldA) [Moles/Vol] 101 mmol/L Normal 98-107 [facility] Comment on above: Performed By: #### 5 8410-2 #### OMERO KNIGHT ([id number]) [facility] ([facility]) [address] [place] [address] CO2 (Bld) [Partial pressure] 36 mm Hg Low 38-42 [facility] Comment on above: Performed By: #### 5 8410-2 #### OMERO KNIGHT ([id number]) [facility] ([facility]) [address] [place] [address] 72728 Glucose [Mass/Vol] 120 mg/dL High 74-99 [facility] Comment on above: Performed By: #### 5 8410-2 #### OMERO KNIGHT ([id number]) [facility] ([facility]) [address] [place] [address] 54722 HCO3 (Bld) [Moles/Vol] 29.4 mmol/L High 22.0-26.0 [facility] Comment on above: Performed By: #### 5 8410-2 #### OMERO KNIGHT ([id number]) [facility] ([facility]) [address] [place] [address] 72123 Hematocrit Est (Bld) [Volume fraction] 31.0 % Low 36.0-46.0 [facility] Comment on above: Performed By: #### 5 8410-2 #### OMERO KNIGHT ([id number]) [facility] ([facility]) [address] [place] [address] 33458 Hemoglobin (Bld) [Mass/Vol] 10.3 g/dL Low 12.0-16.0 [facility] Comment on above: Performed By: #### 5 8410-2 #### OMERO KNIGHT ([id number]) [facility] ([facility]) [address] [place] [address] 86918 Inhaled oxygen concentration 50 % Normal [facility] Comment on above: Performed By: #### 5 8410-2 #### OMERO KNIGHT ([id number]) [facility] ([facility]) [address] [place] [address] 28684 Lactate (BldA) [Moles/Vol] 1.1 mmol/L Normal 0.4-2.0 [facility] Comment on above: Performed By: #### 5 8410-2 #### OMERO KNIGHT ([id number]) [facility] ([facility]) [address] [place] [address] 70667 Oxygen (Bld) [Partial pressure] 191 mm Hg High 85-95 [facility] Comment on above: Performed By: #### 5 8410-2 #### OMERO KNIGHT ([id number]) [facility] ([facility]) [address] [place] [address] 33886 Oxyhemoglobin (BldA) [Mass fraction] 97.6 % Normal 94.0-98.0 [facility] Comment on above: Performed By: #### 5 8410-2 #### OMERO KNIGHT ([id number]) [facility] ([facility]) [address] [place] [address] 17909 pH (Bld) 7.52 [pH] High 7.38-7.42 [facility] Comment on above: Performed By: #### 5 8410-2 #### OMERO KNIGHT ([id number]) [facility] ([facility]) [address] [place] [address] 48013 Potassium (BldA) [Moles/Vol] 2.8 mmol/L Critically low 3.5-5.3 [facility] Comment on above: Performed By: #### 5 8410-2 #### OMERO KNIGHT ([id number]) [facility] ([facility]) [address] [place] [address] 36936 Sodium (BldA) [Moles/Vol] 133 mmol/L Low 136-145 [facility] Comment on above: Performed By: #### 5 8410-2 #### OMERO KNIGHT ([id number]) [facility] ([facility]) [address] [place] [address] 55746 Glucose Test strip manual (B ld) [Mass/Vol]on 11-14-2023 Glucose [Mass/Vol] 181 mg/dL High 74 - 99 mg/dL [facility] Interpretation and review of laboratory results Abnormal [facility] Glucose [Mass/Vol] 181 mg/dL High 74-99 [facility] Comment on above: Performed By: #### 2 4323-8 #### OMERO KNIGHT ([id number]) [facility] ([facility]) [address] [place] [address] 35409 Glucose [Mass/Vol] 112 mg/dL High 74 - 99 mg/dL [facility] Interpretation and review of laboratory results Abnormal [facility] Glucose [Mass/Vol] 112 mg/dL High 74-99 [facility] Comment on above: Performed By: #### 5 8410-2 #### OMERO KNIGHT ([id number]) [facility] ([facility]) [address] [place] [address] 49761 Glucose [Mass/Vol] 115 mg/dL High 74 - 99 mg/dL [facility] Interpretation and review of laboratory results Abnormal [facility] Glucose [Mass/Vol] 115 mg/dL High 74-99 [facility] Comment on above: Performed By: #### 5 8410-2 #### OMERO KNIGHT ([id number]) [facility] ([facility]) [address] [place] [address] 73839 PT and aPTT panel Coag (PPP) on 11-14-2023 aPTT Coag (PPP) [Time] 34 s [facility] INR Coag (PPP) [Relative time] 1.1 {INR} 0.9 - 1.1 [facility] Interpretation and review of laboratory results Normal [facility] PT Coag (PPP) [Time] 12.7 s [facility] aPTT Coag (PPP) [Time] 34 s Normal 27-38 [facility] Comment on above: Order Comment: The A PTT is no longer used for monitoring Unfractionated Heparin Therapy. For monitoring Heparin Therapy, use the Heparin Assay. Performed By: #### 5 8410-2 #### OMERO KNIGHT ([id number]) [facility] ([facility]) [address] [place] [address] 83749 INR Coag (PPP) [Relative time] 1.1 Normal 0.9-1.1 [facility] Comment on above: Order Comment: The A PTT is no longer used for monitoring Unfractionated Heparin Therapy. For monitoring Heparin Therapy, use the Heparin Assay. Performed By: #### 5 8410-2 #### OMERO KNIGHT ([id number]) [facility] ([facility]) [address] [place] [id number] PT Coag (PPP) [Time] 12.7 s Normal 9.8-12.8 [facility] Comment on above: Order Comment: The A PTT is no longer used for monitoring Unfractionated Heparin Therapy. For monitoring Heparin Therapy, use the Heparin Assay. Performed By: #### 5 8410-2 #### OMERO KNIGHT (65561) [facility] ([facility]) [facility] [place] [phone] Renal function 2000 panelon 11-14-2023 Albumin BCP dye [Mass/Vol] 2.7 g/dL Low 3.4 - 5.0 g/dL [facility] Anion gap [Moles/Vol] 10 mmol/L 10 - 2 0 mmol/L [facility] Calcium [Mass/Vol] 8.9 mg/dL 8.6 - 10. 6 mg/dL [facility] Chloride [Moles/Vol] 96 mmol/L Low 98 - 10 7 mmol/L [facility] CO2 [Moles/Vol] 35 mmol/L High 21 - 32 mmol/L [facility] Creatinine [Mass/Vol] 0.97 mg/dL 0.50 - 1.05 mg/dL [facility] GFR/1.73 sq M.predicted among non-blacks MDRD (S/P/Bld) [Vol rate/Area] 61 mL/min/{1.73_m2} - PINF [facility] Glucose [Mass/Vol] 110 mg/dL High 74 - 99 mg/dL [facility] Interpretation and review of laboratory results Abnormal [facility] Phosphate [Mass/Vol] 3.3 mg/dL 2.5 - 4 .9 mg/dL [facility] Potassium [Moles/Vol] 3.4 mmol/L Low 3.5 - 5.3 mmol/L [facility] Sodium [Moles/Vol] 138 mmol/L 136 - 145 mmol/L [facility] Urea nitrogen [Mass/Vol] 16 mg/dL 6 - 23 mg/dL [facility] Albumin BCP dye [Mass/Vol] 2.7 g/dL Low 3.4-5.0 [facility] Comment on above: Performed By: #### 5 8410-2 #### OMERO KNIGHT ([id number]) [facility] ([facility]) [address] [place] [address] 42059 Anion gap [Moles/Vol] 10 mmol/L Normal 10-20 [facility] Comment on above: Performed By: #### 5 8410-2 #### OMERO KNIGHT ([id number]) [facility] ([facility]) [address] [place] [address] 19077 Calcium [Mass/Vol] 8.9 mg/dL Normal 8.6-10.6 [facility] Comment on above: Performed By: #### 5 8410-2 #### OMERO KNIGHT ([id number]) [facility] ([facility]) [address] [place] [address] 21023 Chloride [Moles/Vol] 96 mmol/L Low 98-107 [facility] Comment on above: Performed By: #### 5 8410-2 #### OMERO KNIGHT (14999) [facility] ([facility]) [address] [place] [address] 02101 CO2 [Moles/Vol] 35 mmol/L High 21-32 [facility] Comment on above: Performed By: #### 5 8410-2 #### OMERO KNIGHT ([id number]) [facility] ([facility]) [address] [place] [address] 54772 Creatinine [Mass/Vol] 0.97 mg/dL Normal 0.50-1.05 [facility] Comment on above: Performed By: #### 5 8410-2 #### OMERO KNIGHT ([id number]) [facility] ([facility]) [address] [place] [address] 26120 Glomerular filtration rate/1.73 sq M.predicted 61 mL/min/1.73m*2 Normal >60 [facility] Comment on above: Result Comment: Calc ulations of estimated GFR are performed using the 2020 CKD-EPI Study Refit equation without the race variable for the IDMS-Traceable creatinine methods. https://jasn.asnjournals.org/content//ASN.59504 15297 Performed By: #### 5 8410-2 #### OMERO KNIGHT ([id number]) [facility] ([facility]) [facility] [place] [address] Glucose [Mass/Vol] 110 mg/dL High 74-99 [facility] Comment on above: Performed By: #### 5 8410-2 #### OMERO KNIGHT ([id number]) [facility] ([facility]) [address] [place] [address] 59093 Phosphate [Mass/Vol] 3.3 mg/dL Normal 2.5-4.9 [facility] Comment on above: Result Comment: The performance characteristics of phosphorus testing in heparinized plasma have been validated by the individual laboratory site where testing is performed. Testing on heparinized plasma is not approved by the FDA; however, such approval is not necessary. Performed By: #### 5 8410-2 #### OMERO KNIGHT (05946) [facility] ([facility]) [address] [place] [address] 87158 Potassium [Moles/Vol] 3.4 mmol/L Low 3.5-5.3 [facility] Comment on above: Performed By: #### 5 8410-2 #### OMERO KNIGHT ([id number]) [facility] ([facility]) [address] [place] [address] 16490 Sodium [Moles/Vol] 138 mmol/L Normal 136-145 [facility] Comment on above: Performed By: #### 5 8410-2 #### OMERO KNIGHT ([id number]) [facility] ([facility]) [address] [place] [address] 42778 Urea nitrogen [Mass/Vol] 16 mg/dL Normal 6-23 [facility] Comment on above: Performed By: #### 5 8410-2 #### OMERO KNIGHT ([id number]) [facility] ([facility]) [address] [place] [address] 92608 XR Chest Single viewon 11-13 [facility] Work Phone: XR Chest Single viewOrdered By: Bunny Asher on 11-14-2023 [facility] Work Phone: XR tomography Unspecified bhavik dy regionon 11-14-2023 IMAGING BROAD RANGE PCR-BACTERIAon 0 11-13-2023 SCAN RESULT See Scanned Result Normal [facility] Comment on above: Order Comment: EPIDU RAL ABSCESS Performed By: #### 1 9123-9 #### OMERO KNIGHT ([id number]) [facility] ([facility]) [address] [place] [address] 71307 Bacteria identifiedon 2023 Bacteria identified Cx Nom (Unsp spec) Test: Tissue/Wound Culture/Smear Specimen Source: Wound/Tissue Specimen Type: Tissue/Biopsy Specimen Date: 11/13/2023 1111 Result Date: 11/15/2023 1013 Result Status: Final result Resulting Lab: [facility] [address] [place] [address] CULTURE No growth aerobically and anaerobically STAIN (1+) Rare Polymorphonuclear leukocytes No organisms seen [facility] Comment on above: Performed By: #### 5 8410-2 #### OMERO KNIGHT ([id number]) [facility] ([facility]) [address] [place], [place] [id number] Bacteria identified Cx Nom ( Bld)on 11-13-2023 Interpretation and review of laboratory results Normal [facility] Blood type and Indirect anti body screen panel (Bld)on 11-13-2023 ABO group Nom (Bld) O [facility] Blood group antibody screen Ql Negative [facility] D Ag Ql (Bld) Positive [facility] ABO group Nom (Bld) O Normal [facility] Comment on above: Performed By: #### 4 548-4 #### OMERO KNIGHT ([id number]) [facility] ([facility]) [address] [place] [id number] Blood group antibody screen Ql Negative [facility] Comment on above: Performed By: #### 4 548-4 #### OMERO KNIGHT ([id number]) [facility] ([facility]) [address] [place] [id number] D Ag Ql (Bld) Positive [facility] Comment on above: Performed By: #### 4 548-4 #### OMERO KNIGHT ([id number]) [facility] ([facility]) [address] [place] [address] CT Guidance for deep biopsy of Boneon 11-13-2023 Radiology Study observation (narrative) [facility] Work Phone: Glucose Test strip manual (B ld) [Mass/Vol]on 11-13-2023 Glucose [Mass/Vol] 122 mg/dL High 74 - 99 mg/dL [facility] Interpretation and review of laboratory results Abnormal [facility] Glucose [Mass/Vol] 122 mg/dL High 74-99 [facility] Comment on above: Performed By: #### 4 548-4 #### OMERO KNIGHT ([id number]) [facility] ([facility]) [address] [place], [place] [address] Glucose [Mass/Vol] 171 mg/dL High 74 - 99 mg/dL [facility] Interpretation and review of laboratory results Abnormal [facility] Glucose [Mass/Vol] 171 mg/dL High 74-99 [facility] Comment on above: Performed By: #### 4 548-4 #### OMERO KNIGHT ([id number]) [facility] ([facility]) [address] [place], [place] [address] Glucose [Mass/Vol] 122 mg/dL High 74 - 99 mg/dL [facility] Interpretation and review of laboratory results Abnormal [facility] Glucose [Mass/Vol] 122 mg/dL High 74-99 [facility] Comment on above: Performed By: #### 4 548-4 #### OMERO GONZALEZHRLI ([id number]) [facility] ([facility]) [address] [place] [address] Glucose [Mass/Vol] 109 mg/dL High 74 - 99 mg/dL [facility] Interpretation and review of laboratory results Abnormal [facility] Glucose [Mass/Vol] 109 mg/dL High 74-99 [facility] Comment on above: Performed By: #### 4 548-4 #### OMERO KNIGHT ([id number]) [facility] ([facility]) [address] [place] [address] Laboratory - Microbiology an d Antimicrobial susceptibilityon 11-13-2023 Bacteria identified Cx Nom (Bld) No growth at 4 days - FINAL REPORT [facility] Surgical pathology studyon 0 11-13-2023 Surgical pathology study Pathology report.total SEE COMMENT Surgical Pathology Case: [id number] Authorizing Provider: Ru Ortega MD Collected: 11/13/2023 1109 Ordering Location: [facility] Received: 11/13/2023 [address] [address] Pathologist: Edmundo Joe MD Specimen: BONE BIOPSY [...] in one cassette following decalcification. RCC Normal [facility] Urinalysis complete W Reflex Culture panel (U)on 11-13-2023 Appearance (U) Clear Clear [facility] Bilirubin (U) [Mass/Vol] Negative NEGATIVE [facility] Color (U) Light-Yellow Light-Yellow , Yellow, Dark-Yellow [facility] Epithelial cells.squamous Auto (Urine sed) [#/Area] 1-9 (SPARSE) Reference range not established. /HPF [facility] Glucose Auto test strip (U) [Mass/Vol] Normal Normal mg/dL [facility] Interpretation and review of laboratory results Normal [facility] Ketones (U) [Mass/Vol] Negative NEGAT JORGE mg/dL [facility] Leukocyte esterase Auto test strip Ql (U) Negative NEGATIVE [facility] Nitrite Auto test strip Ql (U) Negative NEGATIVE [facility] pH (U) 7.0 [pH] 5.0, 5.5, 6.0, 6.5, 7.0, 7.5, 8.0 [facility] Protein (U) [Mass/Vol] 20 (TRACE) NEGAT JORGE, 10 (TRACE), 20 (TRACE) mg/dL [facility] RBC (U) [#/Vol] Negative NEGATIVE [facility] RBC Auto (Urine sed) [#/Area] 1-2 NONE, 1-2, 3-5 /HPF [facility] Specific gravity (U) [Rel density] 1.011 1.005 - 1.035 [facility] Urobilinogen (U) [Mass/Vol] Normal Normal mg/dL [facility] WBC Auto (Urine sed) [#/Area] 1-5 1-5, NONE /HPF [facility] Appearance (U) Clear Normal Clear [facility] Comment on above: Performed By: #### 4 548-4 #### OMERO KNIGHT ([id number]) [facility] ([facility]) [address] [place] [address] Bilirubin (U) [Mass/Vol] Negative Normal NEGATIVE [facility] Comment on above: Performed By: ###Chuyita 4 548-4 #### OMERO KNIGHT ([id number]) [facility] ([facility]) [address] [place] [address] Color (U) Light-Yellow Normal Light-Yellow , Yellow, Dark-Yellow [facility] Comment on above: Performed By: ###Chuyita Shannon 548-4 #### OMERO KNIGHT ([id number]) [facility] ([facility]) [address] [place] [address] 32931 Epithelial cells.squamous Auto (Urine sed) [#/Area] 1-9 (SPARSE) Normal Reference range not established. [facility] Comment on above: Performed By: #### 4 548-4 #### OMERO KNIGHT ([id number]) [facility] ([facility]) [address] [place], [place] [address] Glucose Auto test strip (U) [Mass/Vol] Normal Normal Normal [facility] Comment on above: Performed By: #### 4 548-4 #### OMERO KNIGHT ([id number]) [facility] ([facility]) [address] [place] [address] Ketones (U) [Mass/Vol] Negative Normal [facility]IVE [facility] Comment on above: Performed By: #### 4 548-4 #### OMERO KNIGHT ([id number]) [facility] ([facility]) [address] [place], [place] [address] Leukocyte esterase Auto test strip Ql (U) Negative Normal NEGATIVE [facility] Comment on above: Performed By: #### 4 548-4 #### OMERO KNIGHT ([id number]) [facility] ([facility]) [address] [place], [place] [address] Nitrite Auto test strip Ql (U) Negative Normal NEGATIVE [facility] Comment on above: Performed By: #### 4 548-4 #### OMERO KNIGHT ([id number]) [facility] ([facility]) [address] [place] [address] pH (U) 7.0 [pH] Normal 5.0, 5.5, 6.0, 6.5, 7.0, 7.5, 8.0 [facility] Comment on above: Performed By: #### 4 548-4 #### OMERO KNIGHT ([id number]) [facility] ([facility]) [address] [place] [address] Protein (U) [Mass/Vol] 20 (TRACE) Normal NEGAT JORGE, 10 (TRACE), 20 (TRACE) [facility] Comment on above: Performed By: #### 4 548-4 #### OMERO KNIGHT ([id number]) [facility] ([facility]) [address] [place] [address] 19546 RBC (U) [#/Vol] Negative Normal NEGATIVE [facility] Comment on above: Performed By: #### 4 548-4 #### OMERO KNIGHT ([id number]) [facility] ([facility]) [address] [place] [address] 85871 RBC Auto (Urine sed) [#/Area] 1-2 Normal NONE, 1-2, 3-5 [facility] Comment on above: Performed By: #### 4 548-4 #### OMERO KNIGHT ([id number]) [facility] ([facility]) [address] [place] [address] 21756 Specific gravity (U) [Rel density] 1.011 Normal 1.005-1.035 [facility] Comment on above: Performed By: #### 4 548-4 #### OMERO KNIGHT ([id number]) [facility] ([facility]) [address] [place] [address] 53390 Urobilinogen (U) [Mass/Vol] Normal Normal Normal [facility] Comment on above: Performed By: #### 4 548-4 #### OMERO KNIGHT ([id number]) [facility] ([facility]) [address] [place] [address] 86772 WBC Auto (Urine sed) [#/Area] 1-5 Normal 1-5, NONE [facility] Comment on above: Performed By: #### 4 548-4 #### OMERO KNIGHT ([id number]) [facility] ([facility]) [address] [place] [address] 10100 Vancomycinon 11-13-2023 Vancomycin [Mass/Vol] 17.5 ug/mL 5.0 - 20.0 ug/mL [facility] Vancomycin [Mass/Vol] 17.5 ug/mL Normal 5.0-20.0 [facility] Comment on above: Order Comment: Diagn osis of Diabetes-Adults Non-Diabetic: < or = 5.6% Increased risk for developing diabetes: 5.7-6.4% Diagnostic of diabetes: > or = 6.5% Monitoring of Diabetes Age (y)....................... Therapeutic Goal (%) Adults: >18.........................<7.0 Pediatrics: 13-18...................<7.5 Pediatrics: 7-12....................<8.0 Pediatrics: 0-6..................... 7.5-8.5 [place] [employer]. Diabetes Care 33(S1), Apr 2009 Performed By: #### 4 548-4 #### JAMIL EUGENE ([id number]) [facility] ([facility]) [address] [place] [address] Vancomycin [Mass/Vol]on Interpretation and review of laboratory results [facility] XR CHEST 1 VIEWon 11-13-2023 XR CHEST 1 VIEW Interpreted By: Bunny Asher and [place] Lesley STUDY: XR CHEST 1 VIEW; 11/13/2023 11:11 pm INDICATION: Signs/Symptoms:preop. COMPARISON: CT chest abdomen pelvis 11/06/2023 ACCESSION NUMBER(S): [id number] ORDERING CLINICIAN: RU ORTEGA FINDINGS: AP upright [...] as stated. This study was interpreted at [facility], [place], [place]. MACRO: None Signed by: Bunny Asher 11/14/2023 7:48 AM Dictation workstation: [id number] Normal [facility] XR Chest Single viewon 11-12 Radiology Study observation (narrative) [facility] Work Phone: Basic metabolic 2000 panelon 11-12-2023 Anion gap [Moles/Vol] 11 mmol/L 10 - 2 0 mmol/L [facility] Calcium [Mass/Vol] 8.8 mg/dL 8.6 - 10. 6 mg/dL [facility] Chloride [Moles/Vol] 95 mmol/L Low 98 - 10 7 mmol/L [facility] CO2 [Moles/Vol] 34 mmol/L High 21 - 32 mmol/L [facility] Creatinine [Mass/Vol] 0.75 mg/dL 0.50 - 1.05 mg/dL [facility] GFR/1.73 sq M.predicted among non-blacks MDRD (S/P/Bld) [Vol rate/Area] 83 mL/min/{1.73_m2} - PINF [facility] Glucose [Mass/Vol] 118 mg/dL High 74 - 99 mg/dL [facility] Potassium [Moles/Vol] 3.5 mmol/L 3.5 - 5.3 mmol/L [facility] Sodium [Moles/Vol] 136 mmol/L 136 - 145 mmol/L [facility] Urea nitrogen [Mass/Vol] 13 mg/dL 6 - 23 mg/dL [facility] Anion gap [Moles/Vol] 11 mmol/L Normal 10-20 [facility] Comment on above: Performed By: #### 2 677-9 #### OMERO KNIGHT ([id number]) [facility] ([facility]) [address] [place] [address] Calcium [Mass/Vol] 8.8 mg/dL Normal 8.6-10.6 [facility] Comment on above: Performed By: #### 2 132-9 #### OMERO KNIGHT ([id number]) [facility] ([facility]) [address] [place] [address] Chloride [Moles/Vol] 95 mmol/L Low 98-107 [facility] Comment on above: Performed By: #### 2 132-9 #### OMERO KNIGHT ([id number]) [facility] ([facility]) [address] [place] [address] CO2 [Moles/Vol] 34 mmol/L High 21-32 [facility] Comment on above: Performed By: #### 2 132-9 #### OMERO KNIGHT ([id number]) [facility] ([facility]) [address] [place] [address] Creatinine [Mass/Vol] 0.75 mg/dL Normal 0.50-1.05 [facility] Comment on above: Performed By: #### 2 132-9 #### OMERO KNIGHT ([id number]) [facility] ([facility]) [address] [place] [address] 17223 Glomerular filtration rate/1.73 sq M.predicted 83 mL/min/1.73m*2 Normal >60 [facility] Comment on above: Result Comment: Calc ulations of estimated GFR are performed using the 2020 CKD-EPI Study Refit equation without the race variable for the IDMS-Traceable creatinine methods. https://jasn.asnjournals.org/content//ASN.69315 58024 Performed By: #### 2 132-9 #### OMERO KNIGHT ([id number]) [facility] ([facility]) [facility] [place] [address] Glucose [Mass/Vol] 118 mg/dL High 74-99 [facility] Comment on above: Performed By: #### 2 132-9 #### OMERO KNIGHT ([id number]) [facility] ([facility]) [facility] [place] [address] Potassium [Moles/Vol] 3.5 mmol/L Normal 3.5-5.3 [facility] Comment on above: Performed By: #### 2 132-9 #### JAMIL WEHRLI ([id number]) [facility] ([facility]) [address] [place] [address] Sodium [Moles/Vol] 136 mmol/L Normal 136-145 [facility] Comment on above: Performed By: #### 2 132-9 #### OMERO KNIGHT ([id number]) [facility] ([facility]) [address] [place] [address] Urea nitrogen [Mass/Vol] 13 mg/dL Normal 6-23 [facility] Comment on above: Performed By: #### 2 132-9 #### OMERO KNIGHT ([id number]) [facility] ([facility]) [address] [place] [address] Blood type and Indirect anti body screen panel (Bld)on 11-12-2023 ABO group Nom (Bld) O [facility] Blood group antibody screen Ql Negative [facility] D Ag Ql (Bld) Positive [facility] ABO group Nom (Bld) O Normal [facility] Comment on above: Performed By: #### 2 132-9 #### OMERO KNIGHT ([id number]) [facility] ([facility]) [address] [place] [address] Blood group antibody screen Ql Negative [facility] Comment on above: Performed By: #### 2 132-9 #### OMERO KNIGHT ([id number]) [facility] ([facility]) [address] [place] [address] D Ag Ql (Bld) Positive [facility] Comment on above: Result Comment: 2nd ABO test required. Order and Collect VERAB Performed By: #### 2 132-9 #### OMERO KNIGHT ([id number]) [facility] ([facility]) [address] [place] [address] CBC W Auto Differential pane l (Bld)on 11-12-2023 Basophils (Bld) [#/Vol] 0.05 10*3/uL [facility] Basophils/100 WBC (Bld) 0.7 % 0.0 - 2.0 % [facility] Eosinophils (Bld) [#/Vol] 0.15 10*3/uL [facility] Eosinophils/100 WBC (Bld) 2.1 % 0.0 - 6.0 % [facility] Erythrocyte distribution width (RBC) [Ratio] 15.4 % High 11.5 - 14.5 % [facility] Hematocrit (Bld) [Volume fraction] 33.7 % Low 36.0 - 46.0 % [facility] Hemoglobin (Bld) [Mass/Vol] 10.8 g/dL Low 12.0 - 16.0 g/dL [facility] Immature granulocytes (Bld) [#/Vol] 0.03 10*3/uL [facility] Immature granulocytes/100 WBC (Bld) 0.4 % 0.0 - 0.9 % [facility] Interpretation and review of laboratory results Abnormal [facility] Lymphocytes (Bld) [#/Vol] 3.21 10*3/uL High [facility] Lymphocytes/100 WBC (Bld) 43.9 % 13.0 - 44.0 % [facility] MCH (RBC) [Entitic mass] 26.8 pg 26.0 - 34.0 pg [facility] MCHC (RBC) [Mass/Vol] 32.0 g/dL 32.0 - 36.0 g/dL [facility] MCV (RBC) [Entitic vol] 84 fL 80 - 100 fL [facility] Monocytes (Bld) [#/Vol] 0.66 10*3/uL [facility] Monocytes/100 WBC (Bld) 9.0 % 2.0 - 10.0 % [facility] Neutrophils (Bld) [#/Vol] 3.21 10*3/uL [facility] Neutrophils/100 WBC (Bld) 43.9 % 40.0 - 80.0 % [facility] Nucleated RBC/100 WBC (Bld) [Ratio] 0.0 % [facility] Platelets (Bld) [#/Vol] 223 10*3/uL [facility] RBC (Bld) [#/Vol] 4.03 10*6/uL [facility] WBC (Bld) [#/Vol] 7.3 10*3/uL [facility] Basophils (Bld) [#/Vol] 0.05 x10*3/uL Normal 0.00-0.10 [facility] Comment on above: Performed By: #### 2 132-9 #### OMERO KNIGHT ([id number]) [facility] ([facility]) [address] [place] [address] 40007 Basophils/100 WBC (Bld) 0.7 % Normal 0.0-2.0 [facility] Comment on above: Performed By: #### 2 132-9 #### OMERO KNIGHT ([id number]) [facility] ([facility]) [address] [place] [address] 68736 Eosinophils (Bld) [#/Vol] 0.15 x10*3/uL Normal 0.00-0.40 [facility] Comment on above: Performed By: #### 2 132-9 #### OMERO KNIGHT ([id number]) [facility] ([facility]) [address] [place] [address] 30472 Eosinophils/100 WBC (Bld) 2.1 % Normal 0.0-6.0 [facility] Comment on above: Performed By: #### 2 132-9 #### OMERO KNIGHT ([id number]) [facility] ([facility]) [address] [place] [address] 78412 Erythrocyte distribution width (RBC) [Ratio] 15.4 % High 11.5-14.5 [facility] Comment on above: Performed By: #### 2 132-9 #### OMERO KNIGHT ([id number]) [facility] ([facility]) [address] [place] [address] 75621 Hematocrit (Bld) [Volume fraction] 33.7 % Low 36.0-46.0 [facility] Comment on above: Performed By: #### 2 132-9 #### OMERO KNIGHT ([id number]) [facility] ([facility]) [address] [place] [address] 91034 Hemoglobin (Bld) [Mass/Vol] 10.8 g/dL Low 12.0-16.0 [facility] Comment on above: Performed By: #### 2 132-9 #### OMERO KNIGHT ([id number]) [facility] ([facility]) [address] [place] [address] 79461 Immature granulocytes (Bld) [#/Vol] 0.03 x10*3/uL Normal 0.00-0.50 [facility] Comment on above: Performed By: #### 2 132-9 #### OMERO KNIGHT ([id number]) [facility] ([facility]) [address] [place] [address] 94771 Immature granulocytes/100 WBC (Bld) 0.4 % Normal 0.0-0.9 [facility] Comment on above: Result Comment: Martina ture Granulocyte Count (IG) includes promyelocytes, myelocytes and metamyelocytes but does not include bands. Percent differential counts (%) should be interpreted in the context of the absolute cell counts (cells/UL). Performed By: #### 2 132-9 #### OMERO KNIGHT ([id number]) [facility] ([facility]) [address] [place] [address] 30825 Lymphocytes (Bld) [#/Vol] 3.21 x10*3/uL High 0.80-3.00 [facility] Comment on above: Performed By: #### 2 132-9 #### OMERO KNIGHT (77457) [facility] ([facility]) [address] [place] [address] 54850 Lymphocytes/100 WBC (Bld) 43.9 % Normal 13.0-44.0 [facility] Comment on above: Performed By: #### 2 132-9 #### OMERO KNIGHT ([id number]) [facility] ([facility]) [address] [place] [address] 98803 MCH (RBC) [Entitic mass] 26.8 pg Normal 26.0-34.0 [facility] Comment on above: Performed By: #### 2 132-9 #### OMERO KNIGHT ([id number]) [facility] ([facility]) [address] [place] [address] 91297 MCHC (RBC) [Mass/Vol] 32.0 g/dL Normal 32.0-36.0 [facility] Comment on above: Performed By: #### 2 132-9 #### OMERO KNIGHT ([id number]) [facility] ([facility]) [address] [place] [address] 59473 MCV (RBC) [Entitic vol] 84 fL Normal 80-100 [facility] Comment on above: Performed By: #### 2 132-9 #### OMERO KNIGHT ([id number]) [facility] ([facility]) [address] [place] [address] 71735 Monocytes (Bld) [#/Vol] 0.66 x10*3/uL Normal 0.05-0.80 [facility] Comment on above: Performed By: #### 2 132-9 #### OMERO KNIGHT ([id number]) [facility] ([facility]) [address] [place] [address] 92371 Monocytes/100 WBC (Bld) 9.0 % Normal 2.0-10.0 [facility] Comment on above: Performed By: #### 2 132-9 #### OMERO KNIGHT ([id number]) [facility] ([facility]) [address] [place] [address] 34714 Neutrophils (Bld) [#/Vol] 3.21 x10*3/uL Normal 1.60-5.50 [facility] Comment on above: Result Comment: Perc ent differential counts (%) should be interpreted in the context of the absolute cell counts (cells/uL). Performed By: #### 2 132-9 #### OMERO KNIGHT ([id number]) [facility] ([facility]) [address] [place] [address] 03213 Neutrophils/100 WBC (Bld) 43.9 % Normal 40.0-80.0 [facility] Comment on above: Performed By: #### 2 132-9 #### OMERO KNIGHT ([id number]) [facility] ([facility]) [address] [place] [address] 76196 Nucleated RBC/100 WBC (Bld) [Ratio] 0.0 /100 WBCs Normal 0.0-0.0 [facility] Comment on above: Performed By: #### 2 132-9 #### OMERO KNIGHT ([id number]) [facility] ([facility]) [address] [place] [address] 61914 Platelets (Bld) [#/Vol] 223 x10*3/uL Normal 150-450 [facility] Comment on above: Performed By: #### 2 132-9 #### OMERO KNIGHT ([id number]) [facility] ([facility]) [address] [place] [address] 67969 RBC (Bld) [#/Vol] 4.03 x10*6/uL Normal 4.00-5.20 [facility] Comment on above: Performed By: #### 2 132-9 #### OMERO KNIGHT ([id number]) [facility] ([facility]) [address] [place] [address] 45951 WBC (Bld) [#/Vol] 7.3 x10*3/uL Normal 4.4-11.3 [facility] Comment on above: Performed By: #### 2 132-9 #### OMERO KNIGHT ([id number]) [facility] ([facility]) [address] [place] [address] 79381 Glucose Test strip manual (B ld) [Mass/Vol]on 11-12-2023 Glucose [Mass/Vol] 110 mg/dL High 74 - 99 mg/dL [facility] Interpretation and review of laboratory results Abnormal [facility] Glucose [Mass/Vol] 110 mg/dL High 74-99 [facility] Comment on above: Performed By: #### 4 548-4 #### OMERO KNIGHT ([id number]) [facility] ([facility]) [address] [place] [address] 53958 Glucose [Mass/Vol] 141 mg/dL High 74 - 99 mg/dL [facility] Interpretation and review of laboratory results Abnormal [facility] Glucose [Mass/Vol] 141 mg/dL High 74-99 [facility] Comment on above: Performed By: #### 4 548-4 #### OMERO KNIGHT ([id number]) [facility] ([facility]) [address] [place] [address] Glucose [Mass/Vol] 127 mg/dL High 74 - 99 mg/dL [facility] Interpretation and review of laboratory results Abnormal [facility] Glucose [Mass/Vol] 127 mg/dL High 74-99 [facility] Comment on above: Performed By: #### 2 132-9 #### OMERO KNIGHT ([id number]) [facility] ([facility]) [address] [place] [address] Glucose [Mass/Vol] 133 mg/dL High 74 - 99 mg/dL [facility] Interpretation and review of laboratory results Abnormal [facility] Glucose [Mass/Vol] 133 mg/dL High 74-99 [facility] Comment on above: Performed By: #### 2 132-9 #### OMERO KNIGHT ([id number]) [facility] ([facility]) [address] [place] [address] 93028 Hepatic function 2000 panelo n 11-12-2023 Albumin BCP dye [Mass/Vol] 2.8 g/dL Low 3.4 - 5.0 g/dL [facility] ALP [Catalytic activity/Vol] 143 U/L High 33 - 136 U/L [facility] ALT With P-5'-P [Catalytic activity/Vol] 8 U/L 7 - 45 U/L [facility] AST With P-5'-P [Catalytic activity/Vol] 17 U/L 9 - 39 U/L [facility] Bilirubin [Mass/Vol] 0.3 mg/dL 0.0 - 1 .2 mg/dL [facility] Bilirubin.direct [Mass/Vol] 0.1 mg/dL 0.0 - 0.3 mg/dL [facility] Protein [Mass/Vol] 6.0 g/dL Low 6.4 - 8.2 g/dL [facility] Albumin BCP dye [Mass/Vol] 2.8 g/dL Low 3.4-5.0 [facility] Comment on above: Performed By: #### 2 132-9 #### OMERO KNIGHT ([id number]) [facility] ([facility]) [address] [place] [address] ALP [Catalytic activity/Vol] 143 U/L High 33-136 [facility] Comment on above: Performed By: #### 2 132-9 #### OMERO KNIGHT ([id number]) [facility] ([facility]) [address] [place] [address] 01121 ALT With P-5'-P [Catalytic activity/Vol] 8 U/L Normal 7-45 [facility] Comment on above: Result Comment: Madhavi ents treated with Sulfasalazine may generate falsely decreased results for ALT. Performed By: #### 2 132-9 #### OMERO KNIGHT ([id number]) [facility] ([facility]) [address] [place] [id number] AST With P-5'-P [Catalytic activity/Vol] 17 U/L Normal 9-39 [facility] Comment on above: Performed By: #### 2 132-9 #### OMERO KNIGHT ([id number]) [facility] ([facility]) [address] [place] [id number] Bilirubin [Mass/Vol] 0.3 mg/dL Normal 0.0-1.2 The [facility] Comment on above: Performed By: #### 2 132-9 #### OMERO KNIGHT ([id number]) [facility] ([facility]) [address] [place] [address] 60056 Bilirubin.direct [Mass/Vol] 0.1 mg/dL Normal 0.0-0.3 [facility] Comment on above: Performed By: #### 2 132-9 #### OMERO KNIGHT ([id number]) [facility] ([facility]) [address] [place] [address] 01366 Protein [Mass/Vol] 6.0 g/dL Low 6.4-8.2 [facility] Comment on above: Performed By: #### 2 132-9 #### OMERO KNIGHT ([id number]) [facility] ([facility]) [address] [place] [address] Magnesiumon 11-12-2023 Magnesium [Mass/Vol] 1.85 mg/dL 1.60 - 2.40 mg/dL [facility] Magnesium [Mass/Vol] 1.85 mg/dL Normal 1.60-2.40 [facility] Comment on above: Performed By: #### 2 132-9 #### OMERO KNIGHT ([id number]) [facility] ([facility]) [address] [place] [address] No Panel Informationon 11-11 Interpretation and review of laboratory results Abnormal [facility] Interpretation and review of laboratory results Normal [facility] PT and aPTT panel Coag (PPP) on 11-12-2023 aPTT Coag (PPP) [Time] 34 s [facility] INR Coag (PPP) [Relative time] 1.1 {INR} 0.9 - 1.1 [facility] Interpretation and review of laboratory results Normal [facility] PT Coag (PPP) [Time] 12.5 s [facility] aPTT Coag (PPP) [Time] 34 s Normal 27-38 [facility] Comment on above: Order Comment: The A PTT is no longer used for monitoring Unfractionated Heparin Therapy. For monitoring Heparin Therapy, use the Heparin Assay. Performed By: #### 2 132-9 #### OMERO KNIGHT ([id number]) [facility] ([facility]) [address] [place] [address] INR Coag (PPP) [Relative time] 1.1 Normal 0.9-1.1 [facility] Comment on above: Order Comment: The A PTT is no longer used for monitoring Unfractionated Heparin Therapy. For monitoring Heparin Therapy, use the Heparin Assay. Performed By: #### 2 132-9 #### OMERO KNIGHT ([id number]) [facility] ([facility]) [address] [place], [place] [id number] PT Coag (PPP) [Time] 12.5 s Normal 9.8-12.8 [facility] Comment on above: Order Comment: The A PTT is no longer used for monitoring Unfractionated Heparin Therapy. For monitoring Heparin Therapy, use the Heparin Assay. Performed By: #### 2 132-9 #### OMERO KNIGHT ([id number]) [facility] ([facility]) [facility] [place] [address] Phosphateon 11-12-2023 Phosphate [Mass/Vol] 2.5 mg/dL Normal 2.5-4.9 [facility] Comment on above: Result Comment: The performance characteristics of phosphorus testing in heparinized plasma have been validated by the individual laboratory site where testing is performed. Testing on heparinized plasma is not approved by the FDA; however, such approval is not necessary. Performed By: #### 2 132-9 #### OMERO KNIGHT ([id number]) [facility] ([facility]) [address] [place] [address] 13443 Phosphoruson 11-12-2023 Phosphate [Mass/Vol] 2.5 mg/dL 2.5 - 4 .9 mg/dL [facility] CBC W Auto Differential pane l (Bld)on 11-11-2023 Basophils (Bld) [#/Vol] 0.03 10*3/uL [facility] Basophils/100 WBC (Bld) 0.5 % 0.0 - 2.0 % [facility] Eosinophils (Bld) [#/Vol] 0.15 10*3/uL [facility] Eosinophils/100 WBC (Bld) 2.3 % 0.0 - 6.0 % [facility] Erythrocyte distribution width (RBC) [Ratio] 15.4 % High 11.5 - 14.5 % [facility] Hematocrit (Bld) [Volume fraction] 33.4 % Low 36.0 - 46.0 % [facility] Hemoglobin (Bld) [Mass/Vol] 10.6 g/dL Low 12.0 - 16.0 g/dL [facility] Immature granulocytes (Bld) [#/Vol] 0.02 10*3/uL [facility] Immature granulocytes/100 WBC (Bld) 0.3 % 0.0 - 0.9 % [facility] Interpretation and review of laboratory results Abnormal [facility] Lymphocytes (Bld) [#/Vol] 2.41 10*3/uL [facility] Lymphocytes/100 WBC (Bld) 37.4 % 13.0 - 44.0 % [facility] MCH (RBC) [Entitic mass] 26.6 pg 26.0 - 34.0 pg [facility] MCHC (RBC) [Mass/Vol] 31.7 g/dL Low 32.0 - 36.0 g/dL [facility] MCV (RBC) [Entitic vol] 84 fL 80 - 100 fL [facility] Monocytes (Bld) [#/Vol] 0.56 10*3/uL [facility] Monocytes/100 WBC (Bld) 8.7 % 2.0 - 10.0 % [facility] Neutrophils (Bld) [#/Vol] 3.28 10*3/uL [facility] Neutrophils/100 WBC (Bld) 50.8 % 40.0 - 80.0 % [facility] Nucleated RBC/100 WBC (Bld) [Ratio] 0.0 % [facility] Platelets (Bld) [#/Vol] 219 10*3/uL [facility] RBC (Bld) [#/Vol] 3.98 10*6/uL Low [facility] WBC (Bld) [#/Vol] 6.5 10*3/uL [facility] Basophils (Bld) [#/Vol] 0.03 x10*3/uL Normal 0.00-0.10 [facility] Comment on above: Performed By: #### 2 4331-1 #### OMERO KNIGHT ([id number]) [facility] ([facility]) [address] [place] [address] 93234 Basophils/100 WBC (Bld) 0.5 % Normal 0.0-2.0 [facility] Comment on above: Performed By: #### 2 4331-1 #### OMERO KNIGHT ([id number]) [facility] ([facility]) [address] [place] [address] 73100 Eosinophils (Bld) [#/Vol] 0.15 x10*3/uL Normal 0.00-0.40 [facility] Comment on above: Performed By: #### 2 4331-1 #### OMERO KNIGHT ([id number]) [facility] ([facility]) [address] [place] [address] 56933 Eosinophils/100 WBC (Bld) 2.3 % Normal 0.0-6.0 [facility] Comment on above: Performed By: #### 2 4331-1 #### OMERO KNIGHT ([id number]) [facility] ([facility]) [address] [place] [address] 18031 Erythrocyte distribution width (RBC) [Ratio] 15.4 % High 11.5-14.5 [facility] Comment on above: Performed By: #### 2 4331-1 #### OMERO KNIGHT ([id number]) [facility] ([facility]) [address] [place] [address] 18644 Hematocrit (Bld) [Volume fraction] 33.4 % Low 36.0-46.0 [facility] Comment on above: Performed By: #### 2 4331-1 #### OMERO KNIGHT ([id number]) [facility] ([facility]) [address] [place] [address] 12044 Hemoglobin (Bld) [Mass/Vol] 10.6 g/dL Low 12.0-16.0 [facility] Comment on above: Performed By: #### 2 4331-1 #### OMERO KNIGHT ([id number]) [facility] ([facility]) [address] [place] [address] 77403 Immature granulocytes (Bld) [#/Vol] 0.02 x10*3/uL Normal 0.00-0.50 [facility] Comment on above: Performed By: #### 2 4331-1 #### OMERO KNIGHT ([id number]) [facility] ([facility]) [address] [place] [address] 57728 Immature granulocytes/100 WBC (Bld) 0.3 % Normal 0.0-0.9 [facility] Comment on above: Result Comment: Martina ture Granulocyte Count (IG) includes promyelocytes, myelocytes and metamyelocytes but does not include bands. Percent differential counts (%) should be interpreted in the context of the absolute cell counts (cells/UL). Performed By: #### 2 4331-1 #### OMERO KNIGHT ([id number]) [facility] ([facility]) [address] [place] [address] 23549 Lymphocytes (Bld) [#/Vol] 2.41 x10*3/uL Normal 0.80-3.00 [facility] Comment on above: Performed By: #### 2 4331-1 #### OMERO KNIGHT ([id number]) [facility] ([facility]) [address] [place] [address] 90577 Lymphocytes/100 WBC (Bld) 37.4 % Normal 13.0-44.0 [facility] Comment on above: Performed By: #### 2 4331-1 #### OMERO KNIGHT ([id number]) [facility] ([facility]) [address] [place] [address] 05505 MCH (RBC) [Entitic mass] 26.6 pg Normal 26.0-34.0 [facility] Comment on above: Performed By: #### 2 4331-1 #### OMERO KNIGHT ([id number]) [facility] ([facility]) [address] [place] [address] 58403 MCHC (RBC) [Mass/Vol] 31.7 g/dL Low 32.0-36.0 [facility] Comment on above: Performed By: #### 2 4331-1 #### OMERO KNIGHT ([id number]) [facility] ([facility]) [address] [place] [address] 30596 MCV (RBC) [Entitic vol] 84 fL Normal 80-100 [facility] Comment on above: Performed By: #### 2 4331-1 #### OMERO KNIGHT ([id number]) [facility] ([facility]) [address] [place] [address] 50397 Monocytes (Bld) [#/Vol] 0.56 x10*3/uL Normal 0.05-0.80 [facility] Comment on above: Performed By: #### 2 4331-1 #### OMERO KNIGHT ([id number]) [facility] ([facility]) [address] [place] [address] 69400 Monocytes/100 WBC (Bld) 8.7 % Normal 2.0-10.0 [facility] Comment on above: Performed By: #### 2 4331-1 #### OMERO KNIGHT ([id number]) [facility] ([facility]) [address] [place] [address] 05575 Neutrophils (Bld) [#/Vol] 3.28 x10*3/uL Normal 1.60-5.50 [facility] Comment on above: Result Comment: Perc ent differential counts (%) should be interpreted in the context of the absolute cell counts (cells/uL). Performed By: #### 2 4331-1 #### OMERO KNIGHT ([id number]) [facility] ([facility]) [address] [place] [address] 49137 Neutrophils/100 WBC (Bld) 50.8 % Normal 40.0-80.0 [facility] Comment on above: Performed By: #### 2 4331-1 #### OMERO KNIGHT ([id number]) [facility] ([facility]) [address] [place] [address] 86365 Nucleated RBC/100 WBC (Bld) [Ratio] 0.0 /100 WBCs Normal 0.0-0.0 [facility] Comment on above: Performed By: #### 2 4331-1 #### OEMRO KNIGHT ([id number]) [facility] ([facility]) [address] [place] [address] 96039 Platelets (Bld) [#/Vol] 219 x10*3/uL Normal 150-450 [facility] Comment on above: Performed By: #### 2 4331-1 #### OMERO KNIGHT ([id number]) [facility] ([facility]) [address] [place] [address] 40443 RBC (Bld) [#/Vol] 3.98 x10*6/uL Low 4.00-5.20 [facility] Comment on above: Performed By: #### 2 4331-1 #### OMERO KNIGHT ([id number]) [facility] ([facility]) [address] [place] [address] 14795 WBC (Bld) [#/Vol] 6.5 x10*3/uL Normal 4.4-11.3 [facility] Comment on above: Performed By: #### 2 4331-1 #### OMERO KNIGHT ([id number]) [facility] ([facility]) [address] [place] [address] 19773 Glucose Test strip manual (B ld) [Mass/Vol]on 11-11-2023 Glucose [Mass/Vol] 132 mg/dL High 74 - 99 mg/dL [facility] Interpretation and review of laboratory results Abnormal [facility] Glucose [Mass/Vol] 132 mg/dL High 74-99 [facility] Comment on above: Performed By: #### 2 132-9 #### OMERO KNIGHT ([id number]) [facility] ([facility]) [address] [place] [address] 67513 Glucose [Mass/Vol] 139 mg/dL High 74 - 99 mg/dL [facility] Interpretation and review of laboratory results Abnormal [facility] Glucose [Mass/Vol] 139 mg/dL High 74-99 [facility] Comment on above: Performed By: #### 2 4331-1 #### OMERO KNIGHT ([id number]) [facility] ([facility]) [address] [place] [address] 40190 Glucose [Mass/Vol] 164 mg/dL High 74 - 99 mg/dL [facility] Interpretation and review of laboratory results Abnormal [facility] Glucose [Mass/Vol] 164 mg/dL High 74-99 [facility] Comment on above: Performed By: #### 2 4331-1 #### OMERO KNIGHT (31419) [facility] ([facility]) [address] [place] [address] 89669 Glucose [Mass/Vol] 119 mg/dL High 74 - 99 mg/dL [facility] Interpretation and review of laboratory results Abnormal [facility] Glucose [Mass/Vol] 119 mg/dL High 74-99 [facility] Comment on above: Performed By: #### 2 4331-1 #### OMERO KNIGHT ([id number]) [facility] ([facility]) [address] [place] [address] Magnesiumon 11-11-2023 Magnesium [Mass/Vol] 2.22 mg/dL 1.60 - 2.40 mg/dL [facility] Magnesium [Mass/Vol] 2.22 mg/dL Normal 1.60-2.40 [facility] Comment on above: Performed By: #### 2 4331-1 #### OMERO KNIGHT ([id number]) [facility] ([facility]) [address] [place] [address] Magnesium [Mass/Vol] 1.41 mg/dL Low 1.60 - 2.40 mg/dL [facility] Magnesium [Mass/Vol] 1.41 mg/dL Low 1.60-2.40 [facility] Comment on above: Performed By: #### 2 4331-1 #### OMERO KNIGHT ([id number]) [facility] ([facility]) [address] [place] [address] Magnesium [Mass/Vol]on 11-10 Interpretation and review of laboratory results Normal [facility] No Panel Informationon 11-10 [facility] Interpretation and review of laboratory results Abnormal [facility] Renal function 2000 panelon 11-11-2023 Albumin BCP dye [Mass/Vol] 2.6 g/dL Low 3.4 - 5.0 g/dL [facility] Anion gap [Moles/Vol] 10 mmol/L 10 - 2 0 mmol/L [facility] Calcium [Mass/Vol] 8.3 mg/dL Low 8.6 - 10. 6 mg/dL [facility] Chloride [Moles/Vol] 93 mmol/L Low 98 - 10 7 mmol/L [facility] CO2 [Moles/Vol] 35 mmol/L High 21 - 32 mmol/L [facility] Creatinine [Mass/Vol] 0.79 mg/dL 0.50 - 1.05 mg/dL [facility] GFR/1.73 sq M.predicted among non-blacks MDRD (S/P/Bld) [Vol rate/Area] 78 mL/min/{1.73_m2} - PINF [facility] Glucose [Mass/Vol] 166 mg/dL High 74 - 99 mg/dL [facility] Interpretation and review of laboratory results Abnormal [facility] Phosphate [Mass/Vol] 2.0 mg/dL Low 2.5 - 4 .9 mg/dL [facility] Potassium [Moles/Vol] 4.1 mmol/L 3.5 - 5.3 mmol/L [facility] Sodium [Moles/Vol] 134 mmol/L Low 136 - 145 mmol/L [facility] Urea nitrogen [Mass/Vol] 14 mg/dL 6 - 23 mg/dL [facility] Albumin BCP dye [Mass/Vol] 2.6 g/dL Low 3.4-5.0 [facility] Comment on above: Performed By: #### 2 4331-1 #### OMERO KNIGHT ([id number]) [facility] ([facility]) [address] [place] [address] Anion gap [Moles/Vol] 10 mmol/L Normal 10-20 [facility] Comment on above: Performed By: #### 2 4331-1 #### OMERO KNIGHT ([id number]) [facility] ([facility]) [address] [place] [address] Calcium [Mass/Vol] 8.3 mg/dL Low 8.6-10.6 [facility] Comment on above: Performed By: #### 2 4331-1 #### OMERO KNIGHT ([id number]) [facility] ([facility]) [address] [place] [address] Chloride [Moles/Vol] 93 mmol/L Low 98-107 [facility] Comment on above: Performed By: #### 2 4331-1 #### OMERO KNIGHT ([id number]) [facility] ([facility]) [address] [place] [address] CO2 [Moles/Vol] 35 mmol/L High 21-32 [facility] Comment on above: Performed By: #### 2 4331-1 #### OMERO KNIGHT (89030) [facility] ([facility]) [facility] [place] [address] Creatinine [Mass/Vol] 0.79 mg/dL Normal 0.50-1.05 [facility] Comment on above: Performed By: #### 2 4331-1 #### OMERO KNIGHT ([id number]) [facility] ([facility]) [address] [place] [address] 40420 Glomerular filtration rate/1.73 sq M.predicted 78 mL/min/1.73m*2 Normal >60 [facility] Comment on above: Result Comment: Calc ulations of estimated GFR are performed using the 2020 CKD-EPI Study Refit equation without the race variable for the IDMS-Traceable creatinine methods. https://jasn.asnjournals.org/content/early/ASN.78542 83285 Performed By: #### 2 4331-1 #### OMERO KNIGHT (69792) [facility] ([facility]) [facility] [place] [address] Glucose [Mass/Vol] 166 mg/dL High 74-99 [facility] Comment on above: Performed By: #### 2 4331-1 #### OMERO KNIGHT ([id number]) [facility] ([facility]) [address] [place] [address] 61704 Phosphate [Mass/Vol] 2.0 mg/dL Low 2.5-4.9 [facility] Comment on above: Result Comment: The performance characteristics of phosphorus testing in heparinized plasma have been validated by the individual laboratory site where testing is performed. Testing on heparinized plasma is not approved by the FDA; however, such approval is not necessary. Performed By: #### 2 4331-1 #### OMERO KNIGHT (76246) [facility] ([facility]) [facility] [place] [address] Potassium [Moles/Vol] 4.1 mmol/L Normal 3.5-5.3 [facility] Comment on above: Performed By: #### 2 4331-1 #### OMERO KNIGHT ([id number]) [facility] ([facility]) [address] [place] [address] Sodium [Moles/Vol] 134 mmol/L Low 136-145 [facility] Comment on above: Performed By: #### 2 4331-1 #### OMERO KNIGHT ([id number]) [facility] ([facility]) [facility] [place] [address] Urea nitrogen [Mass/Vol] 14 mg/dL Normal 6-23 [facility] Comment on above: Performed By: #### 2 4331-1 #### OMERO KNIGHT (27427) [facility] ([facility]) [facility] [place] [address] Albumin BCP dye [Mass/Vol] 2.6 g/dL Low 3.4 - 5.0 g/dL [facility] Anion gap [Moles/Vol] 10 mmol/L 10 - 2 0 mmol/L [facility] Calcium [Mass/Vol] 8.6 mg/dL 8.6 - 10. 6 mg/dL [facility] Chloride [Moles/Vol] 95 mmol/L Low 98 - 10 7 mmol/L [facility] CO2 [Moles/Vol] 33 mmol/L High 21 - 32 mmol/L [facility] Creatinine [Mass/Vol] 0.80 mg/dL 0.50 - 1.05 mg/dL [facility] GFR/1.73 sq M.predicted among non-blacks MDRD (S/P/Bld) [Vol rate/Area] 77 mL/min/{1.73_m2} - PINF [facility] Glucose [Mass/Vol] 139 mg/dL High 74 - 99 mg/dL [facility] Phosphate [Mass/Vol] 2.7 mg/dL 2.5 - 4 .9 mg/dL [facility] Potassium [Moles/Vol] 3.0 mmol/L Low 3.5 - 5.3 mmol/L [facility] Sodium [Moles/Vol] 135 mmol/L Low 136 - 145 mmol/L [facility] Urea nitrogen [Mass/Vol] 15 mg/dL 6 - 23 mg/dL [facility] Albumin BCP dye [Mass/Vol] 2.6 g/dL Low 3.4-5.0 [facility] Comment on above: Performed By: #### 2 4331-1 #### OMERO KNIGHT ([id number]) [facility] ([facility]) [facility] [place] [address] Anion gap [Moles/Vol] 10 mmol/L Normal 10-20 [facility] Comment on above: Performed By: #### 2 4331-1 #### OMERO KNIGHT ([id number]) [facility] ([facility]) [address] [place] [address] 06869 Calcium [Mass/Vol] 8.6 mg/dL Normal 8.6-10.6 [facility] Comment on above: Performed By: #### 2 4331-1 #### OMERO KNIGHT (93323) [facility] ([facility]) [address] [place] [address] 34090 Chloride [Moles/Vol] 95 mmol/L Low 98-107 [facility] Comment on above: Performed By: #### 2 4331-1 #### OMERO KNIGHT (14999) [facility] ([facility]) [address] [place] [address] 67753 CO2 [Moles/Vol] 33 mmol/L High 21-32 [facility] Comment on above: Performed By: #### 2 4331-1 #### OMERO KNIGHT (66953) [facility] ([facility]) [address] [place] [address] 98055 Creatinine [Mass/Vol] 0.80 mg/dL Normal 0.50-1.05 [facility] Comment on above: Performed By: #### 2 4331-1 #### OMERO KNIGHT ([id number]) [facility] ([facility]) [address] [place] [address] 66712 Glomerular filtration rate/1.73 sq M.predicted 77 mL/min/1.73m*2 Normal >60 [facility] Comment on above: Result Comment: Calc ulations of estimated GFR are performed using the 2020 CKD-EPI Study Refit equation without the race variable for the IDMS-Traceable creatinine methods. https://jasn.asnjournals.org/content//ASN.72480 10523 Performed By: #### 2 4331-1 #### OMERO KNIGHT (22375) [facility] ([facility]) [address] [place] [address] 59120 Glucose [Mass/Vol] 139 mg/dL High 74-99 [facility] Comment on above: Performed By: #### 2 4331-1 #### OMERO KNIGHT (63513) [facility] ([facility]) [address] [place] [address] 69738 Phosphate [Mass/Vol] 2.7 mg/dL Normal 2.5-4.9 [facility] Comment on above: Result Comment: The performance characteristics of phosphorus testing in heparinized plasma have been validated by the individual laboratory site where testing is performed. Testing on heparinized plasma is not approved by the FDA; however, such approval is not necessary. Performed By: #### 2 4331-1 #### OMERO KNIGHT ([id number]) [facility] ([facility]) [address] [place] [address] 07449 Potassium [Moles/Vol] 3.0 mmol/L Low 3.5-5.3 [facility] Comment on above: Performed By: #### 2 4331-1 #### OMERO KNIGHT (87126) [facility] ([facility]) [address] [place] [address] 05758 Sodium [Moles/Vol] 135 mmol/L Low 136-145 [facility] Comment on above: Performed By: #### 2 4331-1 #### OMERO KNIGHT ([id number]) [facility] ([facility]) [address] [place] [address] 79034 Urea nitrogen [Mass/Vol] 15 mg/dL Normal 6-23 [facility] Comment on above: Performed By: #### 2 4331-1 #### OMERO KNIGHT (16577) [facility] ([facility]) [address] [place] [address] 92030 Glucose Test strip manual (B ld) [Mass/Vol]on 11-10-2023 Glucose [Mass/Vol] 142 mg/dL High 74 - 99 mg/dL [facility] Interpretation and review of laboratory results Abnormal [facility] Glucose [Mass/Vol] 142 mg/dL High 74-99 [facility] Comment on above: Performed By: #### 2 4331-1 #### OMERO KNIGHT ([id number]) [facility] ([facility]) [address] [place] [address] 55325 Glucose [Mass/Vol] 116 mg/dL High 74 - 99 mg/dL [facility] Interpretation and review of laboratory results Abnormal [facility] Glucose [Mass/Vol] 116 mg/dL High 74-99 [facility] Comment on above: Performed By: #### 2 4331-1 #### OMERO KNIGHT (06418) [facility] ([facility]) [address] [place] [address] 97463 Glucose [Mass/Vol] 159 mg/dL High 74 - 99 mg/dL [facility] Interpretation and review of laboratory results Abnormal [facility] Glucose [Mass/Vol] 159 mg/dL High 74-99 [facility] Comment on above: Performed By: #### 2 4323-8 #### OMERO KNIGHT (24123) [facility] ([facility]) [address] [place] [address] 63002 Glucose [Mass/Vol] 170 mg/dL High 74 - 99 mg/dL [facility] Interpretation and review of laboratory results Abnormal [facility] Glucose [Mass/Vol] 170 mg/dL High 74-99 [facility] Comment on above: Performed By: #### 2 4323-8 #### OMERO KNIGHT ([id number]) [facility] ([facility]) [address] [place] [id number] Glucose [Mass/Vol] 132 mg/dL High 74 - 99 mg/dL [facility] Interpretation and review of laboratory results Abnormal [facility] Glucose [Mass/Vol] 132 mg/dL High 74-99 [facility] Comment on above: Performed By: #### 2 4323-8 #### OMERO KNIGHT ([id number]) [facility] [facility]) [facility] [place] [address] Vancomycinon 11-10-2023 Vancomycin [Mass/Vol] 17.6 ug/mL 5.0 - 20.0 ug/mL [facility] Vancomycin [Mass/Vol] 17.6 ug/mL Normal 5.0-20.0 [facility] Comment on above: Order Comment: Vanco [...] By: #### 2 4323-8 #### OMERO KNIGHT ([id number]) [facility] ([facility]) [address] [place], [place] [id number] Vancomycin [Mass/Vol]on Interpretation and review of laboratory results [facility] Bacteria identifiedon 2023 Bacteria identified Cx Nom (Bld) Test: Blood Culture Specimen Source: Peripheral Venipuncture Specimen Type: Blood culture Specimen Date: 11/09/2023 1110 Result Date: 11/13/2023 1300 Result Status: Final result Abnormal: No Resulting Lab: [facility] [address] [facility] [address] CULTURE No growth at 4 days - FINAL REPORT [facility] Comment on above: Performed By: #### 2 4323-8 #### OMERO KNIGHT ([id number]) [facility] ([facility]) [address] [place] [address] CBC W Auto Differential pane l (Bld)on 11-09-2023 Basophils (Bld) [#/Vol] 0.05 10*3/uL [facility] Basophils/100 WBC (Bld) 0.6 % 0.0 - 2.0 % [facility] Eosinophils (Bld) [#/Vol] 0.16 10*3/uL [facility] Eosinophils/100 WBC (Bld) 1.8 % 0.0 - 6.0 % [facility] Erythrocyte distribution width (RBC) [Ratio] 15.2 % High 11.5 - 14.5 % [facility] Hematocrit (Bld) [Volume fraction] 34.5 % Low 36.0 - 46.0 % [facility] Hemoglobin (Bld) [Mass/Vol] 10.8 g/dL Low 12.0 - 16.0 g/dL [facility] Immature granulocytes (Bld) [#/Vol] 0.05 10*3/uL [facility] Immature granulocytes/100 WBC (Bld) 0.6 % 0.0 - 0.9 % [facility] Interpretation and review of laboratory results Abnormal [facility] Lymphocytes (Bld) [#/Vol] 3.08 10*3/uL High [facility] Lymphocytes/100 WBC (Bld) 34.8 % 13.0 - 44.0 % [facility] MCH (RBC) [Entitic mass] 26.5 pg 26.0 - 34.0 pg [facility] MCHC (RBC) [Mass/Vol] 31.3 g/dL Low 32.0 - 36.0 g/dL [facility] MCV (RBC) [Entitic vol] 85 fL 80 - 100 fL [facility] Monocytes (Bld) [#/Vol] 0.67 10*3/uL [facility] Monocytes/100 WBC (Bld) 7.6 % 2.0 - 10.0 % [facility] Neutrophils (Bld) [#/Vol] 4.83 10*3/uL [facility] Neutrophils/100 WBC (Bld) 54.6 % 40.0 - 80.0 % [facility] Nucleated RBC/100 WBC (Bld) [Ratio] 0.0 % [facility] Platelets (Bld) [#/Vol] 263 10*3/uL [facility] RBC (Bld) [#/Vol] 4.08 10*6/uL [facility] WBC (Bld) [#/Vol] 8.8 10*3/uL [facility] Basophils (Bld) [#/Vol] 0.05 x10*3/uL Normal 0.00-0.10 [facility] Comment on above: Performed By: #### 1 9123-9 #### OMERO KNIGHT ([id number]) [facility] ([facility]) [address] [place] [address]203 Basophils/100 WBC (Bld) 0.6 % Normal 0.0-2.0 [facility] Comment on above: Performed By: #### 1 9123-9 #### OMERO KNIGHT ([id number]) [facility] ([facility]) [address] [place] [address] 92193 Eosinophils (Bld) [#/Vol] 0.16 x10*3/uL Normal 0.00-0.40 [facility] Comment on above: Performed By: #### 1 9123-9 #### OMERO KNIGHT ([id number]) [facility] ([facility]) [address] [place] [address] 79428 Eosinophils/100 WBC (Bld) 1.8 % Normal 0.0-6.0 [facility] Comment on above: Performed By: #### 1 9123-9 #### OMERO KNIGHT ([id number]) [facility] ([facility]) [address] [place] [address] 14239 Erythrocyte distribution width (RBC) [Ratio] 15.2 % High 11.5-14.5 [facility] Comment on above: Performed By: #### 1 9123-9 #### OMERO KNIGHT ([id number]) [facility] ([facility]) [address] [place] [address] 15219 Hematocrit (Bld) [Volume fraction] 34.5 % Low 36.0-46.0 [facility] Comment on above: Performed By: #### 1 9123-9 #### OMERO KNIGHT (21854) [facility] ([facility]) [address] [place] [address] 31660 Hemoglobin (Bld) [Mass/Vol] 10.8 g/dL Low 12.0-16.0 [facility] Comment on above: Performed By: #### 1 9123-9 #### OMERO KNIGHT ([id number]) [facility] ([facility]) [address] [place] [address] 14119 Immature granulocytes (Bld) [#/Vol] 0.05 x10*3/uL Normal 0.00-0.50 [facility] Comment on above: Performed By: #### 1 9123-9 #### OMERO KNIGHT ([id number]) [facility] ([facility]) [address] [place] [address] 85626 Immature granulocytes/100 WBC (Bld) 0.6 % Normal 0.0-0.9 [facility] Comment on above: Result Comment: Martina ture Granulocyte Count (IG) includes promyelocytes, myelocytes and metamyelocytes but does not include bands. Percent differential counts (%) should be interpreted in the context of the absolute cell counts (cells/UL). Performed By: #### 1 9123-9 #### OMERO KNIGHT ([id number]) [facility] ([facility]) [address] [place] [address] 45200 Lymphocytes (Bld) [#/Vol] 3.08 x10*3/uL High 0.80-3.00 [facility] Comment on above: Performed By: #### 1 9123-9 #### OMERO KNIGHT ([id number]) [facility] ([facility]) [address] [place] [address] 51721 Lymphocytes/100 WBC (Bld) 34.8 % Normal 13.0-44.0 [facility] Comment on above: Performed By: #### 1 9123-9 #### OMERO KNIGHT ([id number]) [facility] ([facility]) [address] [place] [address] 40564 MCH (RBC) [Entitic mass] 26.5 pg Normal 26.0-34.0 [facility] Comment on above: Performed By: #### 1 9123-9 #### OMERO KNIGHT ([id number]) [facility] ([facility]) [address] [place] [address] 63210 MCHC (RBC) [Mass/Vol] 31.3 g/dL Low 32.0-36.0 [facility] Comment on above: Performed By: #### 1 9123-9 #### OMERO KNIGHT ([id number]) [facility] ([facility]) [address] [place] [address] 06039 MCV (RBC) [Entitic vol] 85 fL Normal 80-100 [facility] Comment on above: Performed By: #### 1 9123-9 #### OMERO KNIGHT ([id number]) [facility] ([facility]) [address] [place] [address] 44982 Monocytes (Bld) [#/Vol] 0.67 x10*3/uL Normal 0.05-0.80 [facility] Comment on above: Performed By: #### 1 9123-9 #### OMERO KINGHT ([id number]) [facility] ([facility]) [address] [place] [address] 86696 Monocytes/100 WBC (Bld) 7.6 % Normal 2.0-10.0 [facility] Comment on above: Performed By: #### 1 9123-9 #### OMERO KNIGHT ([id number]) [facility] ([facility]) [address] [place] [address] 05401 Neutrophils (Bld) [#/Vol] 4.83 x10*3/uL Normal 1.60-5.50 [facility] Comment on above: Result Comment: Perc ent differential counts (%) should be interpreted in the context of the absolute cell counts (cells/uL). Performed By: #### 1 9123-9 #### OMERO KNIGHT ([id number]) [facility] ([facility]) [address] [place] [address] 25653 Neutrophils/100 WBC (Bld) 54.6 % Normal 40.0-80.0 [facility] Comment on above: Performed By: #### 1 9123-9 #### OMERO KNIGHT ([id number]) [facility] ([facility]) [address] [place] [address] 24750 Nucleated RBC/100 WBC (Bld) [Ratio] 0.0 /100 WBCs Normal 0.0-0.0 [facility] Comment on above: Performed By: #### 1 9123-9 #### OMERO KNIGHT ([id number]) [facility] ([facility]) [address] [place] [address] 33489 Platelets (Bld) [#/Vol] 263 x10*3/uL Normal 150-450 [facility] Comment on above: Performed By: #### 1 9123-9 #### OMERO KNIGHT ([id number]) [facility] ([facility]) [address] [place] [address] 02695 RBC (Bld) [#/Vol] 4.08 x10*6/uL Normal 4.00-5.20 [facility] Comment on above: Performed By: #### 1 9123-9 #### OMERO KNIGHT ([id number]) [facility] ([facility]) [address] [place] [address] 33949 WBC (Bld) [#/Vol] 8.8 x10*3/uL Normal 4.4-11.3 [facility] Comment on above: Performed By: #### 1 9123-9 #### OMERO KNIGHT ([id number]) [facility] ([facility]) [address] [place] [address] GUIDED PERCUTANEOUS BIOPS Y BONE DEEPon 11-09-2023 CT GUIDED PERCUTANEOUS BIOPSY BONE DEEP Interpreted By: Caron Donaldson and Calo Sean-Matthew STUDY: CT-guided bone marrow biopsy; 11/13/2023 11:07 am INDICATION: Signs/Symptoms:Bone biopsy, 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 COMPARISON: MR thoracic spine and CT thoracic spine 11/06/2023. ACCESSION NUMBER(S): [id number] ORDERING CLINICIAN: RU ORTEGA TECHNIQUE: INTERVENTIONALIST(S): MD [...] the interventional CT scanner bed. An initial topstitcher lockstitch image and axial noncontrast CT images of [...] Gatica MD. This study was interpreted at [facility], [place], [place]. MACRO: None Signed by: Caron Donaldson 11/14/2023 8:11 AM Dictation workstation: [id number] Normal [facility] Comment on above: Order Comment: Last xarelto dose was at [facility] on 11/07 at 9AM Comprehensive metabolic 2000 panelon 11-09-2023 Albumin BCP dye [Mass/Vol] 2.8 g/dL Low 3.4 - 5.0 g/dL [facility] ALP [Catalytic activity/Vol] 134 U/L 33 - 136 U/L [facility] ALT With P-5'-P [Catalytic activity/Vol] 12 U/L 7 - 45 U/L [facility] Anion gap [Moles/Vol] 15 mmol/L 10 - 2 0 mmol/L [facility] AST With P-5'-P [Catalytic activity/Vol] 22 U/L 9 - 39 U/L [facility] Bilirubin [Mass/Vol] 0.4 mg/dL 0.0 - 1 .2 mg/dL [facility] Calcium [Mass/Vol] 8.4 mg/dL Low 8.6 - 10. 6 mg/dL [facility] Chloride [Moles/Vol] 96 mmol/L Low 98 - 10 7 mmol/L [facility] CO2 [Moles/Vol] 25 mmol/L 21 - 32 mmol/L [facility] Creatinine [Mass/Vol] 0.80 mg/dL 0.50 - 1.05 mg/dL [facility] GFR/1.73 sq M.predicted among non-blacks MDRD (S/P/Bld) [Vol rate/Area] 77 mL/min/{1.73_m2} - PINF [facility] Glucose [Mass/Vol] 115 mg/dL High 74 - 99 mg/dL [facility] Potassium [Moles/Vol] 3.7 mmol/L 3.5 - 5.3 mmol/L [facility] Protein [Mass/Vol] 5.8 g/dL Low 6.4 - 8.2 g/dL [facility] Sodium [Moles/Vol] 132 mmol/L Low 136 - 145 mmol/L [facility] Urea nitrogen [Mass/Vol] 14 mg/dL 6 - 23 mg/dL [facility] Albumin BCP dye [Mass/Vol] 2.8 g/dL Low 3.4-5.0 [facility] Comment on above: Performed By: #### 1 9123-9 #### OMERO KNIGHT ([id number]) [facility] ([facility]) [address] [place] [address] ALP [Catalytic activity/Vol] 134 U/L Normal 33-136 [facility] Comment on above: Performed By: #### 1 9123-9 #### OMERO KNIGHT ([id number]) [facility] ([facility]) [address] [place] [address] 53415 ALT With P-5'-P [Catalytic activity/Vol] 12 U/L Normal 7-45 [facility] Comment on above: Result Comment: Madhavi ents treated with Sulfasalazine may generate falsely decreased results for ALT. Performed By: #### 1 9123-9 #### OMERO KNIGHT ([id number]) [facility] ([facility]) [address] [place] [address] 96218 Anion gap [Moles/Vol] 15 mmol/L Normal 10-20 [facility] Comment on above: Performed By: #### 1 9123-9 #### OMERO KNIGHT ([id number]) [facility] ([facility]) [address] [place] [address] 40002 AST With P-5'-P [Catalytic activity/Vol] 22 U/L Normal 9-39 [facility] Comment on above: Performed By: #### 1 9123-9 #### OMERO KNIGHT ([id number]) [facility] ([facility]) [address] [place] [address] 94460 Bilirubin [Mass/Vol] 0.4 mg/dL Normal 0.0-1.2 [facility] Comment on above: Performed By: #### 1 9123-9 #### OMERO KNIGHT ([id number]) [facility] ([facility]) [address] [place] [address] Calcium [Mass/Vol] 8.4 mg/dL Low 8.6-10.6 [facility] Comment on above: Performed By: #### 1 9123-9 #### OMERO KNIGHT ([id number]) [facility] ([facility]) [address] [place] [address] Chloride [Moles/Vol] 96 mmol/L Low 98-107 [facility] Comment on above: Performed By: #### 1 9123-9 #### OMERO KNIGHT ([id number]) [facility] ([facility]) [address] [place] [address] 59038 CO2 [Moles/Vol] 25 mmol/L Normal 21-32 [facility] Comment on above: Performed By: #### 1 9123-9 #### OMERO KNIGHT ([id number]) [facility] ([facility]) [address] [place] [address] 08303 Creatinine [Mass/Vol] 0.80 mg/dL Normal 0.50-1.05 [facility] Comment on above: Performed By: #### 1 9123-9 #### OMERO KNIGHT ([id number]) [facility] ([facility]) [address] [place] [address] 74989 Glomerular filtration rate/1.73 sq M.predicted 77 mL/min/1.73m*2 Normal >60 [facility] Comment on above: Result Comment: Calc ulations of estimated GFR are performed using the 2020 CKD-EPI Study Refit equation without the race variable for the IDMS-Traceable creatinine methods. https://jasn.asnjournals.org/content/early/ASN.68753 65045 Performed By: #### 1 9123-9 #### OMERO KNIGHT ([id number]) [facility] ([facility]) [facility] [place] [address] Glucose [Mass/Vol] 115 mg/dL High 74-99 [facility] Comment on above: Performed By: #### 1 9123-9 #### OMERO KNIGHT ([id number]) [facility] ([facility]) [address] [place] [address] 37317 Potassium [Moles/Vol] 3.7 mmol/L Normal 3.5-5.3 [facility] Comment on above: Performed By: #### 1 9123-9 #### OMERO KNIGHT ([id number]) [facility] ([facility]) [address] [place] [address] 15667 Protein [Mass/Vol] 5.8 g/dL Low 6.4-8.2 [facility] Comment on above: Performed By: #### 1 9123-9 #### OMERO KNIGHT ([id number]) [facility] ([facility]) [address] [place] [address] 75796 Sodium [Moles/Vol] 132 mmol/L Low 136-145 [facility] Comment on above: Performed By: #### 1 9123-9 #### OMERO KNIGHT ([id number]) [facility] ([facility]) [address] [place] [address] 06175 Urea nitrogen [Mass/Vol] 14 mg/dL Normal 6-23 [facility] Comment on above: Performed By: #### 1 9123-9 #### OMERO KNIGHT ([id number]) [facility] ([facility]) [address] [place] [address] 23296 ECG 12-LEADon 11-09-2023 ECG 12-LEAD Ventricular Rate 73 Atrial Rate 73 P-R Interval 196 QRS Duration 106 Q-T Interval 384 QTC Calculation(Bazett) 423 P [place] -24 R [place] -46 T [place] -41 QRS Count 12 Q Onset 205 P Onset 107 P Offset 148 T Offset 397 QTC Fredericia 410 Diagnosis Atrial fibrillation Left axis deviation Low voltage QRS Cannot rule out Anterior infarct , age undetermined Abnormal ECG Confirmed by Fabio Bee ([id number]) on 11/15/2023 2:34:28 PM Normal [facility] Glucose Test strip manual (B ld) [Mass/Vol]on 11-09-2023 Glucose [Mass/Vol] 140 mg/dL High 74 - 99 mg/dL [facility] Interpretation and review of laboratory results Abnormal [facility] Glucose [Mass/Vol] 140 mg/dL High 74-99 [facility] Comment on above: Performed By: #### 2 4323-8 #### OMERO KNIGHT ([id number]) [facility] ([facility]) [address] [place] [address] 64728 Glucose [Mass/Vol] 118 mg/dL High 74 - 99 mg/dL [facility] Interpretation and review of laboratory results Abnormal [facility] Glucose [Mass/Vol] 118 mg/dL High 74-99 [facility] Comment on above: Performed By: #### 2 4323-8 #### OMERO KNIGHT ([id number]) [facility] ([facility]) [address] [place] [address] 89326 Glucose [Mass/Vol] 120 mg/dL High 74 - 99 mg/dL [facility] Interpretation and review of laboratory results Abnormal [facility] Glucose [Mass/Vol] 120 mg/dL High 74-99 [facility] Comment on above: Performed By: #### 2 4323-8 #### OMERO KNIGHT ([id number]) [facility] ([facility]) [address] [place] [address] 37347 Glucose [Mass/Vol] 142 mg/dL High 74 - 99 mg/dL [facility] Interpretation and review of laboratory results Abnormal [facility] Glucose [Mass/Vol] 142 mg/dL High 74-99 [facility] Comment on above: Performed By: #### 2 4323-8 #### OMERO KNIGHT ([id number]) [facility] ([facility]) [address] [place] [address] 71982 Glucose [Mass/Vol] 139 mg/dL High 74 - 99 mg/dL [facility] Interpretation and review of laboratory results Abnormal [facility] Glucose [Mass/Vol] 139 mg/dL High 74-99 [facility] Comment on above: Performed By: #### 1 9123-9 #### OEMRO KNIGHT ([id number]) [facility] ([facility]) [address] [place] [address] Magnesiumon 11-09-2023 Magnesium [Mass/Vol] 1.30 mg/dL Low 1.60 - 2.40 mg/dL [facility] Magnesium [Mass/Vol] 1.30 mg/dL Low 1.60-2.40 [facility] Comment on above: Performed By: #### 1 9123-9 #### OMERO KNIGHT ([id number]) [facility] ([facility]) [address] [place] [address] No Panel Informationon 11-08 Interpretation and review of laboratory results Abnormal [facility] Urinalysis complete panel (U )on 11-09-2023 Appearance (U) Clear Clear [facility] Bilirubin (U) [Mass/Vol] Negative NEGATIVE [facility] Color (U) Light-Yellow Light-Yellow , Yellow, Dark-Yellow [facility] Glucose Auto test strip (U) [Mass/Vol] Normal Normal mg/dL [facility] Interpretation and review of laboratory results Normal [facility] Ketones (U) [Mass/Vol] Negative NEGAT JORGE mg/dL [facility] Leukocyte esterase Auto test strip Ql (U) Negative NEGATIVE [facility] Nitrite Auto test strip Ql (U) Negative NEGATIVE [facility] pH (U) 5.5 [pH] 5.0, 5.5, 6.0, 6.5, 7.0, 7.5, 8.0 [facility] Protein (U) [Mass/Vol] Negative NEGAT JORGE, 10 (TRACE), 20 (TRACE) mg/dL [facility] RBC (U) [#/Vol] Negative NEGATIVE [facility] Specific gravity (U) [Rel density] 1.011 1.005 - 1.035 [facility] Urobilinogen (U) [Mass/Vol] Normal Normal mg/dL [facility] Appearance (U) Clear Normal Clear [facility] Comment on above: Performed By: #### 1 9123-9 #### OMERO KNIGHT ([id number]) [facility] ([facility]) [address] [place] [address] Bilirubin (U) [Mass/Vol] Negative Normal NEGATIVE [facility] Comment on above: Performed By: #### 1 9123-9 #### OMERO KNIGHT ([id number]) [facility] ([facility]) [address] [place] [address] 99827 Color (U) Light-Yellow Normal Light-Yellow , Yellow, Dark-Yellow [facility] Comment on above: Performed By: #### 1 9123-9 #### OMERO KNIGHT ([id number]) [facility] ([facility]) [address] [place] [address] 83571 Glucose Auto test strip (U) [Mass/Vol] Normal Normal Normal [facility] Comment on above: Performed By: #### 1 9123-9 #### OMERO KNIGHT ([id number]) [facility] ([facility]) [address] [place] [address] 53804 Ketones (U) [Mass/Vol] Negative Normal NEGATIVE [facility] Comment on above: Performed By: #### 1 9123-9 #### OMERO KNIGHT ([id number]) [facility] ([facility]) [address] [place] [address] 26708 Leukocyte esterase Auto test strip Ql (U) Negative Normal NEGATIVE [facility] Comment on above: Performed By: #### 1 9123-9 #### OMERO KNIGHT ([id number]) [facility] ([facility]) [address] [place] [address] 41475 Nitrite Auto test strip Ql (U) Negative Normal NEGATIVE [facility] Comment on above: Performed By: #### 1 9123-9 #### OMERO KNIGHT ([id number]) [facility] ([facility]) [address] [place] [address] 33782 pH (U) 5.5 [pH] Normal 5.0, 5.5, 6.0, 6.5, 7.0, 7.5, 8.0 [facility] Comment on above: Performed By: #### 1 9123-9 #### OMERO KNIGHT ([id number]) [facility] ([facility]) [address] [place] [address] Protein (U) [Mass/Vol] Negative Normal NEGAT JORGE, 10 (TRACE), 20 (TRACE) [facility] Comment on above: Performed By: #### 1 9123-9 #### OMERO KNIGHT (85951) [facility] ([facility]) [address] [place] [address] RBC (U) [#/Vol] Negative Normal NEGATIVE [facility] Comment on above: Performed By: #### 1 9123-9 #### OMERO KNIGHT (68059) [facility] ([facility]) [address] [place] [address] Specific gravity (U) [Rel density] 1.011 Normal 1.005-1.035 [facility] Comment on above: Performed By: #### 1 9123-9 #### OMERO KNIGHT ([id number]) [facility] ([facility]) [address] [place] [address] Urobilinogen (U) [Mass/Vol] Normal Normal Normal [facility] Comment on above: Performed By: #### 1 9123-9 #### OMERO KNIGHT ([id number]) [facility] ([facility]) [address] [place] [address] C reactive proteinon 024 CRP [Mass/Vol] 4.29 mg/dL High <1.00 [facility] Comment on above: Performed By: #### 1 988-5 ####OMERO KNIGHT ([id number])[facility] ([facility])[address] [place], [place] [address] CBC panel Auto (Bld)on 11-07 Erythrocyte distribution width (RBC) [Ratio] 15.3 % High 11.5-14.5 [facility] Comment on above: Performed By: #### 5 8410-2 ####OMERO KNIGHT ([id number])[facility] ([facility])[address] [place] [address] Hematocrit (Bld) [Volume fraction] 33.3 % Low 36.0-46.0 [facility] Comment on above: Performed By: #### 5 8410-2 ####OMERO KNIGHT ([id number])[facility] ([facility])[address] [place] [address] 13348 Hemoglobin (Bld) [Mass/Vol] 10.3 g/dL Low 12.0-16.0 [facility] Comment on above: Performed By: #### 5 8410-2 ####OMERO KNIGHT ([id number])[facility] ([facility])[address] [place] [address] 11121 MCH (RBC) [Entitic mass] 26.5 pg Normal 26.0-34.0 [facility] Comment on above: Performed By: #### 5 8410-2 ####OMERO KNIGHT ([id number])[facility] ([facility])[address] [place] [address] [id number] MCHC (RBC) [Mass/Vol] 30.9 g/dL Low 32.0-36.0 [facility] Comment on above: Performed By: #### 5 8410-2 ####OMERO KNIGHT ([id number])[facility] ([facility])[address] [place] [address] [id number] MCV (RBC) [Entitic vol] 86 fL Normal 80-100 [facility] Comment on above: Performed By: #### 5 8410-2 ####OMERO KNIGHT ([id number])[facility] ([facility])[address] [place] [address] [id number] Nucleated RBC/100 WBC (Bld) [Ratio] 0.0 /100 WBCs Normal 0.0-0.0 [facility] Comment on above: Performed By: #### 5 8410-2 ####OMERO KNIGHT ([id number])[facility] ([facility])[address] [place] [address] 33590 Platelets (Bld) [#/Vol] 228 x10*3/uL Normal 150-450 [facility] Comment on above: Performed By: #### 5 8410-2 ####OMERO KNIGHT ([id number])[facility] ([facility])[address] [place] [address] 77183 RBC (Bld) [#/Vol] 3.88 x10*6/uL Low 4.00-5.20 [facility] Comment on above: Performed By: #### 5 8410-2 ####OMERO KNIGHT ([id number])[facility] ([facility])[address] [place] [address] 76284 WBC (Bld) [#/Vol] 7.8 x10*3/uL Normal 4.4-11.3 [facility] Comment on above: Performed By: #### 5 8410-2 ####OMERO KNIGHT ([id number])[facility] ([facility])[address] [place] [address] 78156 Creatinineon 11-08-2023 Creatinine [Mass/Vol] 0.87 mg/dL Normal 0.50-1.05 [facility] Comment on above: Performed By: #### 2 160-0 ####OMERO KNIGHT ([id number])[facility] ([facility])[address] [place] [address] 95723 Creatinine [Mass/Vol]on Glomerular filtration rate/1.73 sq M.predicted 70 mL/min/1.73m*2 Normal >60 [facility] Comment on above: Result Comment: Calc ulations of estimated GFR are performed using the 2020 CKD-EPI Study Refit equation without the race variable for the IDMS-Traceable creatinine methods. https://jasn.asnjournals.org/content/early//ASN.81867 12811 Performed By: #### 2 160-0 ####OMERO KNIGHT ([id number])[facility] ([facility])[address] [place] [address] 54156 Glucose Test strip manual (B ld) [Mass/Vol]on 11-08-2023 Glucose [Mass/Vol] 140 mg/dL High 74-99 [facility] Comment on above: Performed By: #### 2 341-6 ####OMERO KNIGHT ([id number])[facility] ([facility])[address] [place] [address] 06191 Glucose [Mass/Vol] 111 mg/dL High 74-99 [facility] Comment on above: Performed By: #### 2 341-6 ####OMERO KNIGHT ([id number])[facility] ([facility])[address] [place] [address] 71403 Glucose [Mass/Vol] 130 mg/dL High 74-99 [facility] Comment on above: Performed By: #### 2 341-6 ####OMERO KNIGHT ([id number])[facility] ([facility])[address] [place] [address] 63473 Glucose [Mass/Vol] 109 mg/dL High 74-99 [facility] Comment on above: Performed By: #### 2 341-6 ####OMERO KNIGHT ([id number])[facility] ([facility])[address] [place] [address] 17661 Natriuretic peptide B [Mass/ Vol]on 11-08-2023 Natriuretic peptide B (Bld) [Mass/Vol] 484 pg/mL High 0-99 [facility] Comment on above: Order Comment: <100 pg/mL - Heart failure [id number] pg/mL - Intermediate probability of acute heart failure exacerbation. Correlate with clinical context and patient history. >=300 pg/mL - Heart Failure likely. Correlate with clinical context and patient history.BNP testing is performed using different testing methodology at [facility] than at other [facility]. Direct result comparisons should only be made within the same method. Performed By: #### 3 0934-4 ####OMERO KNIGHT ([id number])[facility] ([facility])[address] [place] [address] 88012 Vancomycinon 11-08-2023 Vancomycin [Mass/Vol] 20.3 ug/mL High 5.0-20.0 [facility] Comment on above: Order Comment: Vanco mycin [...] Performed By: #### 2 0578-1 ####OMERO KNIGHT ([id number])[facility] ([facility])[address] [place] [address] 72542 Basic metabolic 2000 panelon 11-07-2023 Anion gap [Moles/Vol] 10 mmol/L Normal 10-20 [facility] Comment on above: Performed By: #### 3 0934-4 #### OMERO KNIGHT ([id number]) [facility] ([facility]) [address] [place] [address] 59610 Calcium [Mass/Vol] 8.1 mg/dL Low 8.6-10.3 [facility] Comment on above: Performed By: #### 3 0934-4 #### OMERO KNIGHT ([id number]) [facility] ([facility]) [address] [place] [address] 81343 Chloride [Moles/Vol] 100 mmol/L Normal 98-107 [facility] Comment on above: Performed By: #### 3 0934-4 #### OMERO KNIGHT ([id number]) [facility] ([facility]) [address] [place] [address] 67363 CO2 [Moles/Vol] 26 mmol/L Normal 21-32 [facility] Comment on above: Performed By: #### 3 0934-4 #### OMERO KNIGHT ([id number]) [facility] ([facility]) [address] [place] [address] 29279 Creatinine [Mass/Vol] 0.92 mg/dL Normal 0.50-1.05 [facility] Comment on above: Performed By: #### 3 0934-4 #### OMERO KNIGHT ([id number]) [facility] ([facility]) [address] [place] [address] 07773 Glomerular filtration rate/1.73 sq M.predicted 65 mL/min/1.73m*2 Normal >60 [facility] Comment on above: Result Comment: Calc ulations of estimated GFR are performed using the 2020 CKD-EPI Study Refit equation without the race variable for the IDMS-Traceable creatinine methods. https://jasn.asnjournals.org/content/early/ASN.00503 94792 Performed By: #### 3 0934-4 #### OMERO KNIGHT ([id number]) [facility] ([facility]) [address] [place] [address] 70005 Glucose [Mass/Vol] 116 mg/dL High 74-99 [facility] Comment on above: Performed By: #### 3 0934-4 #### OMERO KNIGHT ([id number]) [facility] ([facility]) [address] [place] [address] 13602 Potassium [Moles/Vol] 3.4 mmol/L Low 3.5-5.3 [facility] Comment on above: Performed By: #### 3 0934-4 #### OMERO KNIGHT ([id number]) [facility] ([facility]) [address] [place] [address] 33868 Sodium [Moles/Vol] 133 mmol/L Low 136-145 [facility] Comment on above: Performed By: #### 3 0934-4 #### OMERO KNIGHT ([id number]) [facility] ([facility]) [address] [place] [address] 02224 Urea nitrogen [Mass/Vol] 21 mg/dL Normal 6-23 [facility] Comment on above: Performed By: #### 3 0934-4 #### OMERO KNIGHT ([id number]) [facility] ([facility]) [address] [place] [address] 98847 CBC panel Auto (Bld)on 11-06 Erythrocyte distribution width (RBC) [Ratio] 15.6 % High 11.5-14.5 [facility] Comment on above: Performed By: #### 3 0934-4 #### OMERO KNIGHT ([id number]) [facility] ([facility]) [address] [place] [address] 01211 Hematocrit (Bld) [Volume fraction] 32.4 % Low 36.0-46.0 [facility] Comment on above: Performed By: #### 3 34-4 #### OMERO KNIGHT ([id number]) [facility] ([facility]) [address] [place] [address] Hemoglobin (Bld) [Mass/Vol] 9.9 g/dL Low 12.0-16.0 [facility] Comment on above: Performed By: #### 3 34-4 #### OMERO KNIGHT ([id number]) [facility] ([facility]) [address] [place] [address] 83420 MCH (RBC) [Entitic mass] 26.6 pg Normal 26.0-34.0 [facility] Comment on above: Performed By: #### 3 34-4 #### OMERO KNIGHT ([id number]) [facility] ([facility]) [address] [place] [address] 27490 MCHC (RBC) [Mass/Vol] 30.6 g/dL Low 32.0-36.0 [facility] Comment on above: Performed By: #### 3 34-4 #### OMERO KNIGHT ([id number]) [facility] ([facility]) [address] [place] [address] 30429 MCV (RBC) [Entitic vol] 87 fL Normal 80-100 [facility] Comment on above: Performed By: #### 3 34-4 #### OMERO KNIGHT ([id number]) [facility] ([facility]) [address] [place] [address] 46080 Nucleated RBC/100 WBC (Bld) [Ratio] 0.0 /100 WBCs Normal 0.0-0.0 [facility] Comment on above: Performed By: #### 3 0934-4 #### OMERO KNIGHT ([id number]) [facility] ([facility]) [address] [place] [address] 48195 Platelets (Bld) [#/Vol] 246 x10*3/uL Normal 150-450 [facility] Comment on above: Performed By: #### 3 34-4 #### OMERO KNIGHT ([id number]) [facility] ([facility]) [address] [place] [address] 09584 RBC (Bld) [#/Vol] 3.72 x10*6/uL Low 4.00-5.20 [facility] Comment on above: Performed By: #### 3 34-4 #### OMERO KNIGHT ([id number]) [facility] ([facility]) [address] [place] [address] 91692 WBC (Bld) [#/Vol] 7.8 x10*3/uL Normal 4.4-11.3 [facility] Comment on above: Performed By: #### 3 34-4 #### OMERO KNIGHT ([id number]) [facility] ([facility]) [address] [place] [address] 22649 Glucose Test strip manual (B ld) [Mass/Vol]on 11-07-2023 Glucose [Mass/Vol] 124 mg/dL High 7499 [facility] Comment on above: Performed By: #### 3 34-4 #### OMERO KNIGHT ([id number]) [facility] ([facility]) [address] [place] [address] 34708 Glucose [Mass/Vol] 108 mg/dL High 74-99 [facility] Comment on above: Performed By: #### 3 34-4 #### OMERO KNIGHT (65405) [facility] ([facility]) [address] [place] [address] 61919 Glucose [Mass/Vol] 134 mg/dL High [address] Comment on above: Performed By: #### 3 34-4 #### OMERO KNIGHT ([id number]) [facility] ([facility]) [address] [place] [address] 81715 Glucose [Mass/Vol] 104 mg/dL High 74-99 [facility] Comment on above: Result Comment: RN/M D NOTIFIED Performed By: #### 3 0934-4 #### OMERO KNIGHT ([id number]) [facility] ([facility]) [address] [place] [address] 80421 Vancomycinon 11-07-2023 Vancomycin [Mass/Vol] 8.5 ug/mL Normal 5.0-20.0 [facility] Comment on above: Order Comment: <100 pg/mL - Heart failure unlikely 100-299 pg/mL - Intermediate probability of acute heart failure exacerbation. Correlate with clinical context and patient history. >=300 pg/mL - Heart Failure likely. Correlate with clinical context and patient history. BNP testing is performed using different testing methodology at [facility] than at [facility]. Direct result comparisons should only be made within the same method. Performed By: #### 3 0934-4 #### OMERO KNIGHT ([id number]) [facility] ([facility]) [address] [place], [place] [address] Bacteria identifiedon 2023 Bacteria identified Cx Nom (Bld) Test: Blood Culture Specimen Source: Peripheral Venipuncture Specimen Type: Blood culture Specimen Date: 11/06/2023728 Result Date: 11/10/20231200 Result Status: Final result Abnormal: No Resulting Lab: [facility] [address] [address] CULTURE No growth at 4 days - FINAL REPORT [facility] Comment on above: Performed By: #### 2 4321-2 #### OMERO KNIGHT ([id number]) [facility] ([facility]) [address] [place] [address] 59028 Bacteria identified Cx Nom (Bld) Test: Blood Culture Specimen Source: Peripheral Venipuncture Specimen Type: Blood culture Specimen Date: 11/06/2023715 Result Date: 11/10/20231200 Result Status: Final result Abnormal: No Resulting Lab: [facility] [address] [address] CULTURE No growth at 4 days - FINAL REPORT Normal [facility] Comment on above: Performed By: #### 2 4321-2 #### OMERO KNIGHT ([id number]) [facility] ([facility]) [address] [place] [address] Bacteria identified Cx Nom (U) Test: Urine Culture Specimen Source: Clean Catch/Voided Specimen Type: Urine Specimen Date: 11/06/2023536 Result Date: 11/07/2023835 Result Status: Final result Abnormal: Yes Resulting Lab: [facility] [address] [place] [address] CULTURE Multiple organisms present, probable contamination. Repeat culture if clinically indicated. (Abnormal) Abnormal [facility] Comment on above: Performed By: #### 3 0934-4 #### OMERO KNIGHT ([id number]) [facility] ([facility]) [address] [place] [address] CBC W Auto Differential pane l (Bld)on 11-06-2023 Basophils (Bld) [#/Vol] 0.04 x10*3/uL Normal 0.00-0.10 [facility] Comment on above: Performed By: #### 8 9577-1 #### OMERO KNIGHT ([id number]) [facility] ([facility]) [address] [place] [address] Basophils/100 WBC (Bld) 0.4 % Normal 0.0-2.0 [facility] Comment on above: Performed By: #### 8 9577-1 #### OMERO KNIGHT ([id number]) [facility] ([facility]) [address] [place] [address] Eosinophils (Bld) [#/Vol] 0.09 x10*3/uL Normal 0.00-0.40 [facility] Comment on above: Performed By: #### 8 9577-1 #### OMERO KNIGHT ([id number]) [facility] ([facility]) [address] [place] [address] 67142 Eosinophils/100 WBC (Bld) 0.8 % Normal 0.0-6.0 [facility] Comment on above: Performed By: #### 8 9577-1 #### OMERO KNIGHT ([id number]) [facility] ([facility]) [address] [place] [address] 31715 Erythrocyte distribution width (RBC) [Ratio] 15.3 % High 11.5-14.5 [facility] Comment on above: Performed By: #### 8 9577-1 #### OMERO KNIGHT (69359) [facility] ([facility]) [address] [place] [address] 36807 Hematocrit (Bld) [Volume fraction] 37.0 % Normal 36.0-46.0 [facility] Comment on above: Performed By: #### 8 9577-1 #### OMERO KNIGHT (52698) [facility] ([facility]) [address] [place] [address] 85633 Hemoglobin (Bld) [Mass/Vol] 11.6 g/dL Low 12.0-16.0 [facility] Comment on above: Performed By: #### 8 9577-1 #### OMERO KNIGHT ([id number]) [facility] ([facility]) [address] [place] [address] 36208 Immature granulocytes (Bld) [#/Vol] 0.06 x10*3/uL Normal 0.00-0.50 [facility] Comment on above: Performed By: #### 8 9577-1 #### OMERO KNIGHT ([id number]) [facility] ([facility]) [address] [place] [address] 98750 Immature granulocytes/100 WBC (Bld) 0.6 % Normal 0.0-0.9 [facility] Comment on above: Result Comment: Martina ture Granulocyte Count (IG) includes promyelocytes, myelocytes and metamyelocytes but does not include bands. Percent differential counts (%) should be interpreted in the context of the absolute cell counts (cells/UL). Performed By: #### 8 9577-1 #### OMERO KNIGHT ([id number]) [facility] ([facility]) [facility] [place] [address] Lymphocytes (Bld) [#/Vol] 3.12 x10*3/uL High 0.80-3.00 [facility] Comment on above: Performed By: #### 8 9577-1 #### OMERO KNIGHT (14749) [facility] ([facility]) [address] [place] [address] 10037 Lymphocytes/100 WBC (Bld) 28.8 % Normal 13.0-44.0 [facility] Comment on above: Performed By: #### 8 9577-1 #### OMERO KNIGHT (63593) [facility] ([facility]) [address] [place] [address] 29749 MCH (RBC) [Entitic mass] 26.4 pg Normal 26.0-34.0 [facility] Comment on above: Performed By: #### 8 9577-1 #### OMERO KNIGHT ([id number]) [facility] ([facility]) [address] [place] [address] 18013 MCHC (RBC) [Mass/Vol] 31.4 g/dL Low 32.0-36.0 [facility] Comment on above: Performed By: #### 8 9577-1 #### OMERO KNIGHT (67689) [facility] ([facility]) [address] [place] [address] 82157 MCV (RBC) [Entitic vol] 84 fL Normal 80-100 [facility] Comment on above: Performed By: #### 8 9577-1 #### OMERO KNIGHT (64045) [facility] ([facility]) [address] [place] [address] 08680 Monocytes (Bld) [#/Vol] 1.02 x10*3/uL High 0.05-0.80 [facility] Comment on above: Performed By: #### 8 9577-1 #### OMERO KNIGHT ([id number]) [facility] ([facility]) [address] [place] [address] 38206 Monocytes/100 WBC (Bld) 9.4 % Normal 2.0-10.0 [facility] Comment on above: Performed By: #### 8 9577-1 #### OMERO KNIGHT (33221) [facility] ([facility]) [address] [place] [address] 80708 Neutrophils (Bld) [#/Vol] 6.51 x10*3/uL High 1.60-5.50 [facility] Comment on above: Result Comment: Perc ent differential counts (%) should be interpreted in the context of the absolute cell counts (cells/uL). Performed By: #### 8 9577-1 #### OMERO KNIGHT ([id number]) [facility] ([facility]) [address] [place] [address] 65952 Neutrophils/100 WBC (Bld) 60.0 % Normal 40.0-80.0 [facility] Comment on above: Performed By: #### 8 9577-1 #### OMERO KNIGHT (78845) [facility] ([facility]) [address] [place] [address] 96583 Nucleated RBC/100 WBC (Bld) [Ratio] 0.0 /100 WBCs Normal 0.0-0.0 [facility] Comment on above: Performed By: #### 8 9577-1 #### OMERO KNIGHT ([id number]) [facility] ([facility]) [address] [place] [address] 55341 Platelets (Bld) [#/Vol] 353 x10*3/uL Normal 150-450 [facility] Comment on above: Performed By: #### 8 9577-1 #### OMERO KNIGHT ([id number]) [facility] ([facility]) [address] [place] [address] 56724 RBC (Bld) [#/Vol] 4.40 x10*6/uL Normal 4.00-5.20 [facility] Comment on above: Performed By: #### 8 9577-1 #### OMERO KNIGHT ([id number]) [facility] ([facility]) [address] [place] [address] 31308 WBC (Bld) [#/Vol] 10.8 x10*3/uL Normal 4.4-11.3 [facility] Comment on above: Performed By: #### 8 9577-1 #### JAMIL EUGENE ([id number]) [facility] ([facility]) [address] [place] [address] CT CHEST ABDOMEN PELVIS WO C [facility] 11-06-2023 CT CHEST ABDOMEN PELVIS WO CONTRAST STUDY: CT Chest, Abdomen, and Pelvis without IV Contrast; 11/06/2023, 0805 INDICATION: Abnormal thoracic spine CT. COMPARISON: CT thoracic 11/06/2023, XR chest 10/09/2023, CT abd 01/05/2020. ACCESSION NUMBER(S): [id number] ORDERING CLINICIAN: VERA HUANG TECHNIQUE: CT of [...] uterine fibroids. Signed by Mychal Chavez MD [facility] CT THORACIC SPINE WO IV CONT [facility] 11-06-2023 CT THORACIC SPINE WO IV CONTRAST STUDY: CT Thoracic Spine without IV Contrast; 11/06/2023 at 5:45 AM. INDICATION: Thoracic back pain. COMPARISON: None available. ACCESSION NUMBER(S): [id number] ORDERING CLINICIAN: SKINNY STEEL TECHNIQUE: CT of [...] for infl (more content not included)... Normal [facility] Comprehensive metabolic 2000 panelon 11-06-2023 Albumin BCP dye [Mass/Vol] 3.3 g/dL Low 3.4-5.0 [facility] Comment on above: Performed By: #### 2 4321-2 #### JAMIL EUGENE ([id number]) [facility] ([facility]) [address] [place] [address] 48213 ALP [Catalytic activity/Vol] 133 U/L Normal 33-136 [facility] Comment on above: Performed By: #### 2 4321-2 #### JAMIL EUGENE (38090) [facility] ([facility]) [facility] [place] [address] ALT With P-5'-P [Catalytic activity/Vol] 10 U/L Normal 7-45 [facility] Comment on above: Result Comment: Madhavi ents treated with Sulfasalazine may generate falsely decreased results for ALT. Performed By: #### 2 4321-2 #### JAMIL LISAHRLI ([id number]) [facility] ([facility]) [address] [place] [address] Anion gap [Moles/Vol] 15 mmol/L Normal 10-20 [facility] Comment on above: Performed By: #### 2 4321-2 #### OMERO KNIGHT ([id number]) [facility] ([facility]) [address] [place] [address] AST With P-5'-P [Catalytic activity/Vol] 14 U/L Normal 9-39 [facility] Comment on above: Performed By: #### 2 4321-2 #### OMERO KNIGHT ([id number]) [facility] ([facility]) [address] [place] [address] 57033 Bilirubin [Mass/Vol] 0.5 mg/dL Normal 0.0-1.2 [facility] Comment on above: Performed By: #### 2 1-2 #### OMERO KNIGHT ([id number]) [facility] ([facility]) [address] [place] [address] Calcium [Mass/Vol] 9.2 mg/dL Normal 8.6-10.3 [facility] Comment on above: Performed By: #### 2 4321-2 #### OMERO KNIGHT ([id number]) [facility] ([facility]) [address] [place] [address] Chloride [Moles/Vol] 96 mmol/L Low 98-107 [facility] Comment on above: Performed By: #### 2 4321-2 #### OMERO KNIGHT ([id number]) [facility] ([facility]) [address] [place] [address] CO2 [Moles/Vol] 26 mmol/L Normal 21-32 [facility] Comment on above: Performed By: #### 2 1-2 #### OMERO KNIGHT ([id number]) [facility] ([facility]) [address] [place] [address] Creatinine [Mass/Vol] 1.12 mg/dL High 0.50-1.05 [facility] Comment on above: Performed By: #### 2 4321-2 #### OMERO KNIGHT ([id number]) [facility] ([facility]) [address] [place] [address] 70353 Glomerular filtration rate/1.73 sq M.predicted 51 mL/min/1.73m*2 Low >60 [facility] Comment on above: Result Comment: Calc ulations of estimated GFR are performed using the 2020 CKD-EPI Study Refit equation without the race variable for the IDMS-Traceable creatinine methods. https://jasn.asnjournals.org/content/early/ASN.16110 88590 Performed By: #### 2 4321-2 #### OMERO KNIGHT ([id number]) [facility] ([facility]) [address] [place] [address] 09578 Glucose [Mass/Vol] 153 mg/dL High 74-99 [facility] Comment on above: Performed By: #### 2 4321-2 #### OMERO KNIGHT ([id number]) [facility] ([facility]) [address] [place] [address] [id number] Potassium [Moles/Vol] 3.8 mmol/L Normal 3.5-5.3 [facility] Comment on above: Performed By: #### 2 4321-2 #### OMERO KNIGHT ([id number]) [facility] ([facility]) [address] [place] [address] [id number] Protein [Mass/Vol] 7.4 g/dL Normal 6.4-8.2 [facility] Comment on above: Performed By: #### 2 4321-2 #### OMERO KNIGHT ([id number]) [facility] ([facility]) [address] [place] [address] 87834 Sodium [Moles/Vol] 133 mmol/L Low 136-145 [facility] Comment on above: Performed By: #### 2 4321-2 #### OMERO KNIGHT ([id number]) [facility] ([facility]) [address] [place] [address] Urea nitrogen [Mass/Vol] 29 mg/dL High 6-23 [facility] Comment on above: Performed By: #### 2 4321-2 #### OMERO KNIGHT ([id number]) [facility] ([facility]) [address] [place] [address] ECG 12-LEADon 11-06-2023 ECG 12-LEAD Ventricular Rate 96 QRS Duration 116 Q-T Interval 354 QTC Calculation(Bazett) 447 R [place] -50 T [place] 125 QRS Count 16 Q Onset 203 [...] and clinical correlation Confirmed by Sophie Florian ([id number]) on 11/06/2023 8:58:45 PM Normal [facility] Glucose Test strip manual (B ld) [Mass/Vol]on 11-06-2023 Glucose [Mass/Vol] 128 mg/dL High 74-99 [facility] Comment on above: Performed By: #### 3 0934-4 #### OMERO KNIGHT ([id number]) [facility] ([facility]) [address] [place] [address] Glucose [Mass/Vol] 98 mg/dL Normal 74-99 [facility] Comment on above: Performed By: #### 3 0934-4 #### OMERO KNIGHT ([id number]) [facility] ([facility]) [address] [place] [address] MR CERVICAL SPINE W AND WO I V CONTRASTon 11-06-2023 MR CERVICAL SPINE W AND WO IV CONTRAST Interpreted By: Lynda Bal, STUDY: MR CERVICAL SPINE W AND WO IV CONTRAST; 11/06/2023 12:58 pm INDICATION: Signs/Symptoms:Abnormal CT thoracic spine, Cancer staging. COMPARISON: None. ACCESSION NUMBER(S): [id number] ORDERING CLINICIAN: VERA HUANG TECHNIQUE: Sagittal T1, [...] throughout the cervical spine. Varying degrees of kczc-gu-tocyypuh disc height loss. Cord: Within the limitation [...] Lynda Bal 11/06/2023 1:10 PM Dictation workstation: [id number] [facility] MR LUMBAR SPINE W AND WO IV CONTRASTon 11-06-2023 MR LUMBAR SPINE W AND WO IV CONTRAST Interpreted By: Lynda Bal, STUDY: MRI of the lumbar spine without IV contrast; 11/06/2023 12:58 pm INDICATION: Signs/Symptoms:Abnormal thoracic CT scan, cancer staging. COMPARISON: None. ACCESSION NUMBER(S): [id number] ORDERING CLINICIAN: VERA HUANG TECHNIQUE: Sagittal and [...] stenosis, narrowing of the subarticular recess and eymu-ot-lqulrrsk bilateral neural foraminal stenosis. L3-L4: Disc bulge, [...] as stated. This study was interpreted at [place], [place]. MACRO: None Signed by: Lynda Bal 11/06/2023 1:29 PM Dictation workstation: [id number] [facility] MR THORACIC SPINE W AND WO I V CONTRASTon 11-06-2023 MR THORACIC SPINE W AND WO IV CONTRAST Interpreted By: Lynda Bal, STUDY: MR THORACIC SPINE W AND WO IV CONTRAST; 11/06/2023 12:58 pm INDICATION: Signs/Symptoms:Abnormal thoracic CT scan, cancer staging. COMPARISON: None. ACCESSION NUMBER(S): [id number] ORDERING CLINICIAN: VREA HUANG TECHNIQUE: Sagittal T1, T2, STIR and axial T2 and T1 weighted MR images of the thoracic spine were obtained. FINDINGS: Counting was performed from the C2 vertebral body on the topstitcher lockstitch image. Alignment: There is slightly exaggerated thoracic [...] spine with mild degenerative endplate changes and sbfg-sj-dcpmnbht disc height loss. There is prevertebral infiltration [...] with moderate to severe spinal canal and qxaa-do-dwrdvaoe bilateral neural foraminal stenosis. T9-T10, T10-T11: Degenerative [...] Lynda Bal 11/06/2023 1:24 PM Dictation workstation: [id number] Normal [facility] Troponin I.cardiac panelon 0 11-06-2023 Tropinin I.cardiac panel High sensitivity method 9 ng/L Normal 0-13 [facility] Comment on above: Order Comment: Less [...] is performed using a differenttesting methodology at [facility] than at [facility]. Direct result comparisons should onlybe made within the same method. Performed By: #### 2 4321-2 #### OMERO KNIGHT ([id number]) [facility] ([facility]) [address] [place] [address] Urinalysis complete W Reflex Culture panel (U)on 11-06-2023 Appearance (U) Turbid Normal Clear [facility] Comment on above: Performed By: #### 8 9577-1 #### OMERO KNIGHT ([id number]) [facility] ([facility]) [address] [place] [address] 86004 Bilirubin (U) [Mass/Vol] Negative Normal NEGATIVE [facility] Comment on above: Performed By: #### 8 9577-1 #### OMERO KNIGHT ([id number]) [facility] ([facility]) [address] [place] [address] 46657 Color (U) Yellow Normal Light-Yellow , Yellow, Dark-Yellow [facility] Comment on above: Performed By: #### 8 9577-1 #### OMERO KNIGHT ([id number]) [facility] ([facility]) [address] [place] [address] 98979 Glucose Auto test strip (U) [Mass/Vol] Normal Normal Normal [facility] Comment on above: Performed By: #### 8 9577-1 #### OMERO KNIGHT ([id number]) [facility] ([facility]) [address] [place] [address] 73288 Ketones (U) [Mass/Vol] Negative Normal NEGATIVE [facility] Comment on above: Performed By: #### 8 9577-1 #### OMERO KNIGHT ([id number]) [facility] ([facility]) [address] [place] [address] 48050 Leukocyte esterase Auto test strip Ql (U) 75 Ray/???L Abnormal NEGATIVE [facility] Comment on above: Performed By: #### 8 9577-1 #### OMERO KNIGHT ([id number]) [facility] ([facility]) [address] [place] [address] 37433 Nitrite Auto test strip Ql (U) Negative Normal NEGATIVE [facility] Comment on above: Performed By: #### 8 9577-1 #### OMERO KNIGHT ([id number]) [facility] ([facility]) [address] [place] [address] 12165 pH (U) 5.5 [pH] Normal 5.0, 5.5, 6.0, 6.5, 7.0, 7.5, 8.0 [facility] Comment on above: Performed By: #### 8 9577-1 #### OMERO KNIGHT ([id number]) [facility] ([facility]) [address] [place] [address] Protein (U) [Mass/Vol] 20 (TRACE) Normal NEGAT JORGE, 10 (TRACE), 20 (TRACE) [facility] Comment on above: Performed By: #### 8 9577-1 #### OMERO KNIGHT ([id number]) [facility] ([facility]) [address] [place] [address] RBC (U) [#/Vol] 0.1 (1+) Abnormal NEGATIVE [facility] Comment on above: Performed By: #### 8 9577-1 #### OMERO KNIGHT ([id number]) [facility] ([facility]) [address] [place] [address] Specific gravity (U) [Rel density] 1.029 Normal 1.005-1.035 [facility] Comment on above: Performed By: #### 8 9577-1 #### OMERO KNIGHT ([id number]) [facility] ([facility]) [address] [place] [address] Urobilinogen (U) [Mass/Vol] 3 (1+) Abnormal Normal [facility] Comment on above: Result Comment: Some pigments and medications may cause a false positive urobilinogen. Performed By: #### 8 9577-1 #### OMERO KNIGHT ([id number]) [facility] ([facility]) [address] [place] [address] Urinalysis microscopic panel Auto Ql (U)on 11-06-2023 Bacteria Auto (Urine sed) [#/Area] 1+ /HPF Abnormal NONE SEEN [facility] Comment on above: Performed By: #### 2 4321-2 #### OMERO KNIGHT ([id number]) [facility] ([facility]) [address] [place] [address] Crystals.amorphous Computer assisted (U) [#/Area] 1+ /HPF Normal NONE, 1+, 2+ [facility] Comment on above: Performed By: #### 2 4321-2 #### OMERO KNIGHT ([id number]) [facility] ([facility]) [facility] [place] [address] Epithelial cells.squamous Auto (Urine sed) [#/Area] 1-9 (SPARSE) Normal Reference range not established. [facility] Comment on above: Performed By: #### 2 4321-2 #### OMERO KNIGHT ([id number]) [facility] ([facility]) [address] [place] [address] 75303 Mucus Auto (Urine sed) [#/Area] FEW Normal Reference range not established. [facility] Comment on above: Performed By: #### 2 4321-2 #### OMERO KNIGHT ([id number]) [facility] ([facility]) [address] [place] [address] RBC Auto (Urine sed) [#/Area] 3-5 Normal NONE, 1-2, 3-5 [facility] Comment on above: Performed By: #### 2 4321-2 #### OMERO KNIGHT ([id number]) [facility] ([facility]) [address] [place], [place] [address] WBC Auto (Urine sed) [#/Area] 1-5 Normal 1-5, NONE [facility] Comment on above: Performed By: #### 2 4321-2 #### OMERO KNIGHT ([id number]) [facility] ([facility]) [address] [place] [address] 35763 Basic metabolic 2000 panelon 10-15-2023 Anion gap [Moles/Vol] 12 mmol/L 10 - 2 0 mmol/L [facility] Calcium [Mass/Vol] 8.6 mg/dL 8.6 - 10. 3 mg/dL [facility] Chloride [Moles/Vol] 92 mmol/L Low 98 - 10 7 mmol/L [facility] CO2 [Moles/Vol] 30 mmol/L 21 - 32 mmol/L [facility] Creatinine [Mass/Vol] 0.67 mg/dL 0.50 - 1.05 mg/dL [facility] eGFR - PINF [facility] Comment on above: Calculations of hannah mated GFR are performed using the 2021 CKD-EPI Study Refit equation without the race variable for the IDMS-Traceable creatinine methods. https://jasn.asnjournals.org/content//ASN.86317 99214 Glucose [Mass/Vol] 170 mg/dL High 74 - 99 mg/dL [facility] Interpretation and review of laboratory results Abnormal [facility] Potassium [Moles/Vol] 3.7 mmol/L 3.5 - 5.3 mmol/L [facility] Sodium [Moles/Vol] 130 mmol/L Low 136 - 145 mmol/L [facility] Comment on above: Reviewed previous re sults Urea nitrogen [Mass/Vol] 19 mg/dL 6 - 23 mg/dL [facility] Anion gap [Moles/Vol] 12 mmol/L Normal 10-20 [facility] Comment on above: Performed By: #### 8 9577-1 #### OMERO KNIGHT ([id number]) [facility] ([facility]) [facility] [place] [address] Calcium [Mass/Vol] 8.6 mg/dL Normal 8.6-10.3 [facility] Comment on above: Performed By: #### 8 9577-1 #### OMERO KNIGHT ([id number]) [facility] ([facility]) [address] [place] [address] Chloride [Moles/Vol] 92 mmol/L Low 98-107 [facility] Comment on above: Performed By: #### 8 9577-1 #### OMERO KNIGHT ([id number]) [facility] ([facility]) [address] [place] [address] CO2 [Moles/Vol] 30 mmol/L Normal 21-32 [facility] Comment on above: Performed By: #### 8 9577-1 #### OMERO KNIGHT ([id number]) [facility] ([facility]) [address] [place] [address] Creatinine [Mass/Vol] 0.67 mg/dL Normal 0.50-1.05 [facility] Comment on above: Performed By: #### 8 9577-1 #### OMERO KNIGHT ([id number]) [facility] ([facility]) [facility] [place] [address] GFR/1.73 sq M.predicted MDRD (S/P/Bld) [Vol rate/Area] mL/min/{1.73_m2} Normal >60 [facility] Comment on above: Result Comment: Calc ulations of estimated GFR are performed using the 2020 CKD-EPI Study Refit equation without the race variable for the IDMS-Traceable creatinine methods. https://jasn.asnjournals.org/content/early/ASN.49253 10747 Performed By: #### 8 9577-1 #### OMERO KNIGHT ([id number]) [facility] ([facility]) [address] [place] [address] 91022 Glucose [Mass/Vol] 170 mg/dL High 74-99 [facility] Comment on above: Performed By: #### 8 9577-1 #### OMERO KNIGHT ([id number]) [facility] ([facility]) [address] [place] [address] 31719 Potassium [Moles/Vol] 3.7 mmol/L Normal 3.5-5.3 [facility] Comment on above: Performed By: #### 8 9577-1 #### OMERO KNIGHT ([id number]) [facility] ([facility]) [address] [place] [address] 53115 Sodium [Moles/Vol] 130 mmol/L Low 136-145 [facility] Comment on above: Result Comment: Revi ewed previous results Performed By: #### 8 9577-1 #### OMERO KNIGHT ([id number]) [facility] ([facility]) [address] [place] [address] 98388 Urea nitrogen [Mass/Vol] 19 mg/dL Normal 6-23 [facility] Comment on above: Performed By: #### 8 9577-1 #### OMERO KNIGHT ([id number]) [facility] ([facility]) [address] [place] [address] 68666 CBC panel Auto (Bld)on 10-14 Erythrocyte distribution width (RBC) [Ratio] 14.3 % 11.5 - 14.5 % [facility] Hematocrit (Bld) [Volume fraction] 40.4 % 36.0 - 46.0 % [facility] Hemoglobin (Bld) [Mass/Vol] 12.9 g/dL 12.0 - 16.0 g/dL [facility] Interpretation and review of laboratory results Abnormal [facility] MCH (RBC) [Entitic mass] 26.7 pg 26.0 - 34.0 pg [facility] MCHC (RBC) [Mass/Vol] 31.9 g/dL Low 32.0 - 36.0 g/dL [facility] MCV (RBC) [Entitic vol] 84 fL 80 - 100 fL [facility] Nucleated RBC/100 WBC (Bld) [Ratio] 0.0 % [facility] Platelets (Bld) [#/Vol] 275 10*3/uL [facility] RBC (Bld) [#/Vol] 4.83 10*6/uL Un[facility] WBC (Bld) [#/Vol] 15.1 10*3/uL High [facility] [place] [place] Erythrocyte distribution width (RBC) [Ratio] 14.3 % Normal 11.5-14.5 [facility] Comment on above: Performed By: #### 8 9577-1 #### OMERO KNIGHT ([id number]) [facility] ([facility]) [address] [place] [address] 85059 Hematocrit (Bld) [Volume fraction] 40.4 % Normal 36.0-46.0 [facility] Comment on above: Performed By: #### 8 9577-1 #### OMERO KNIGHT ([id number]) [facility] ([facility]) [address] [place] [address] 24583 Hemoglobin (Bld) [Mass/Vol] 12.9 g/dL Normal 12.0-16.0 [facility] Comment on above: Performed By: #### 8 9577-1 #### OMERO KNIGHT ([id number]) [facility] ([facility]) [address] [place] [address] MCH (RBC) [Entitic mass] 26.7 pg Normal 26.0-34.0 [facility] Comment on above: Performed By: #### 8 9577-1 #### OMERO KNIGHT ([id number]) [facility] ([facility]) [address] [place] [address] 09403 MCHC (RBC) [Mass/Vol] 31.9 g/dL Low 32.0-36.0 [facility] Comment on above: Performed By: #### 8 9577-1 #### OMERO KNIGHT ([id number]) [facility] ([facility]) [address] [place], [place] [address] MCV (RBC) [Entitic vol] 84 fL Normal 80-100 [facility] Comment on above: Performed By: #### 8 9577-1 #### OMERO KNIGHT ([id number]) [facility] ([facility]) [address] [place] [address] 10756 Nucleated RBC/100 WBC (Bld) [Ratio] 0.0 /100 WBCs Normal 0.0-0.0 [facility] Comment on above: Performed By: #### 8 9577-1 #### OMERO KNIGHT ([id number]) [facility] ([facility]) [address] [place] [address] 61656 Platelets (Bld) [#/Vol] 275 x10*3/uL Normal 150-450 [facility] Comment on above: Performed By: #### 8 9577-1 #### OMERO KNIGHT ([id number]) [facility] ([facility]) [address] [place] [address] 98599 RBC (Bld) [#/Vol] 4.83 x10*6/uL Normal 4.00-5.20 [facility] Comment on above: Performed By: #### 8 9577-1 #### OMERO KNIGHT ([id number]) [facility] ([facility]) [address] [place] [address] 31747 WBC (Bld) [#/Vol] 15.1 x10*3/uL High 4.4-11.3 [facility] Comment on above: Performed By: #### 8 9577-1 #### OMERO KNIGHT ([id number]) [facility] ([facility]) [address] [place] [address] 37612 Glucose Test strip manual (B ld) [Mass/Vol]on 10-15-2023 Glucose [Mass/Vol] 141 mg/dL High 74 - 99 mg/dL [facility] Interpretation and review of laboratory results Abnormal [facility] Glucose [Mass/Vol] 141 mg/dL High 74-99 [facility] Comment on above: Performed By: #### 8 9577-1 #### OMERO KNIGHT ([id number]) [facility] ([facility]) [address] [place] [address] 58901 Glucose [Mass/Vol] 225 mg/dL High 74 - 99 mg/dL [facility] Interpretation and review of laboratory results Abnormal [facility] Glucose [Mass/Vol] 225 mg/dL High 74-99 [facility] Comment on above: Performed By: #### 8 9577-1 #### OMERO KNIGHT ([id number]) [facility] ([facility]) [address] [place] [address] 63226 Glucose [Mass/Vol] 156 mg/dL High 74 - 99 mg/dL [facility] Interpretation and review of laboratory results Abnormal [facility] Glucose [Mass/Vol] 156 mg/dL High 74-99 [facility] Comment on above: Performed By: #### 8 9577-1 #### OMERO KNIGHT ([id number]) [facility] ([facility]) [address] [place] [address] 26884 Basic metabolic 2000 panelon 10-14-2023 Anion gap [Moles/Vol] 12 mmol/L 10 - 2 0 mmol/L [facility] Calcium [Mass/Vol] 8.7 mg/dL 8.6 - 10. 3 mg/dL [facility] Chloride [Moles/Vol] 93 mmol/L Low 98 - 10 7 mmol/L [facility] CO2 [Moles/Vol] 27 mmol/L 21 - 32 mmol/L [facility] Creatinine [Mass/Vol] 0.66 mg/dL 0.50 - 1.05 mg/dL [facility] eGFR - PINF [facility] Comment on above: Calculations of hannah mated GFR are performed using the 2020 CKD-EPI Study Refit equation without the race variable for the IDMS-Traceable creatinine methods. https://jasn.asnjournals.org/content/early/ASN.36001 47786 Glucose [Mass/Vol] 177 mg/dL High 74 - 99 mg/dL [facility] Interpretation and review of laboratory results Abnormal [facility] Potassium [Moles/Vol] 3.7 mmol/L 3.5 - 5.3 mmol/L [facility] Sodium [Moles/Vol] 128 mmol/L Low 136 - 145 mmol/L [facility] Comment on above: Reviewed previous re sults Urea nitrogen [Mass/Vol] 25 mg/dL High 6 - 23 mg/dL [facility] Anion gap [Moles/Vol] 12 mmol/L Normal 10-20 [facility] Comment on above: Performed By: #### 2 4321-2 ####OMERO KNIGHT ([id number])[facility] ([facility] [place] [address] Calcium [Mass/Vol] 8.7 mg/dL Normal 8.6-10.3 [facility] Comment on above: Performed By: #### 2 4321-2 ####OMERO KNIGHT ([id number])[facility] ([facility])[address] [place] [address] Chloride [Moles/Vol] 93 mmol/L Low 98-107 [facility] Comment on above: Performed By: #### 2 4321-2 ####OMERO KNIGHT ([id number])[facility] ([facility])[address] [place] [address] CO2 [Moles/Vol] 27 mmol/L Normal 21-32 [facility] Comment on above: Performed By: #### 2 4321-2 ####OMERO KNIGHT ([id number])[facility] ([facility])[address] [place] [address] 77537 Creatinine [Mass/Vol] 0.66 mg/dL Normal 0.50-1.05 [facility] Comment on above: Performed By: #### 2 4321-2 ####OMERO KNIGHT ([id number])[facility] ([facility])[address] [place] [address] 23667 GFR/1.73 sq M.predicted MDRD (S/P/Bld) [Vol rate/Area] mL/min/{1.73_m2} Normal >60 [facility] Comment on above: Result Comment: Calc ulations of estimated GFR are performed using the 2020 CKD-EPI Study Refit equation without the race variable for the IDMS-Traceable creatinine methods. https://jasn.asnjournals.org/content/early//ASN.48122 84542 Performed By: #### 2 4321-2 ####OMERO KNIGHT ([id number])[facility] ([facility])[address] [place] [address] 56719 Glucose [Mass/Vol] 177 mg/dL High 74-99 [facility] Comment on above: Performed By: #### 2 4321-2 ####OMERO KNIGHT ([id number])[facility] ([facility])[address] [place] [address] 39829 Potassium [Moles/Vol] 3.7 mmol/L Normal 3.5-5.3 [facility] Comment on above: Performed By: #### 2 4321-2 ####OMERO KNIGHT ([id number])[facility] ([facility])[address] [place] [address] 52073 Sodium [Moles/Vol] 128 mmol/L Low 136-145 [facility] Comment on above: Result Comment: Revi ewed previous results Performed By: #### 2 4321-2 ####OMERO KNIGHT ([id number])[facility] ([facility])[address] [place] [address] Urea nitrogen [Mass/Vol] 25 mg/dL High 6-23 [facility] Comment on above: Performed By: #### 2 4321-2 ####OMERO KNIGHT ([id number])[facility] ([facility])[address] [place] [address] CBC panel Auto (Bld)on 10-13 Erythrocyte distribution width (RBC) [Ratio] 14.4 % 11.5 - 14.5 % [facility] Hematocrit (Bld) [Volume fraction] 38.0 % 36.0 - 46.0 % [facility] Hemoglobin (Bld) [Mass/Vol] 12.3 g/dL 12.0 - 16.0 g/dL [facility] Interpretation and review of laboratory results Abnormal [facility] MCH (RBC) [Entitic mass] 26.7 pg 26.0 - 34.0 pg [facility] MCHC (RBC) [Mass/Vol] 32.4 g/dL 32.0 - 36.0 g/dL [facility] MCV (RBC) [Entitic vol] 82 fL 80 - 100 fL [facility] Nucleated RBC/100 WBC (Bld) [Ratio] 0.0 % [facility] Platelets (Bld) [#/Vol] 299 10*3/uL [facility] RBC (Bld) [#/Vol] 4.61 10*6/uL Un[facility] WBC (Bld) [#/Vol] 14.2 10*3/uL High [facility] Erythrocyte distribution width (RBC) [Ratio] 14.4 % Normal 11.5-14.5 [facility] Comment on above: Performed By: #### 5 8410-2 ####OMERO KNIGHT ([id number])[facility] ([facility] [place] [address] Hematocrit (Bld) [Volume fraction] 38.0 % Normal 36.0-46.0 [facility] Comment on above: Performed By: #### 5 8410-2 ####OMERO KNIGHT ([id number])[facility] ([facility])[address] [place] [address] 54465 Hemoglobin (Bld) [Mass/Vol] 12.3 g/dL Normal 12.0-16.0 [facility] Comment on above: Performed By: #### 5 8410-2 ####OMERO KNIGHT ([id number])[facility] ([facility])[address] [place] [address] 15814 MCH (RBC) [Entitic mass] 26.7 pg Normal 26.0-34.0 [facility] Comment on above: Performed By: #### 5 8410-2 ####OMERO KNIGHT ([id number])[facility] ([facility])[address] [place] [address] MCHC (RBC) [Mass/Vol] 32.4 g/dL Normal 32.0-36.0 [facility] Comment on above: Performed By: #### 5 8410-2 ####OMERO KNIGHT ([id number])[facility] ([facility])[address] [place] [address] 39988 MCV (RBC) [Entitic vol] 82 fL Normal 80-100 [facility] Comment on above: Performed By: #### 5 8410-2 ####OMERO KNIGHT ([id number])[facility] ([facility])[address] [place] [address] 84200 Nucleated RBC/100 WBC (Bld) [Ratio] 0.0 /100 WBCs Normal 0.0-0.0 [facility] Comment on above: Performed By: #### 5 8410-2 ####OMERO KNIGHT ([id number])[facility] ([facility])[address] [place] [address] 70739 Platelets (Bld) [#/Vol] 299 x10*3/uL Normal 150-450 [facility] Comment on above: Performed By: #### 5 8410-2 ####OMERO KNIGHT ([id number])[facility] ([facility])[address] [place] [address] 60378 RBC (Bld) [#/Vol] 4.61 x10*6/uL Normal 4.00-5.20 [facility] Comment on above: Performed By: #### 5 8410-2 ####OMERO KNIGHT ([id number])[facility] ([facility])[address] [place] [address] 30290 WBC (Bld) [#/Vol] 14.2 x10*3/uL High 4.4-11.3 [facility] Comment on above: Performed By: #### 5 8410-2 ####OMERO KNIGHT ([id number])[facility] ([facility])[address] [place], [place] [address] Glucose Test strip manual (B ld) [Mass/Vol]on 10-14-2023 Glucose [Mass/Vol] 159 mg/dL High 74 - 99 mg/dL [facility] Interpretation and review of laboratory results Abnormal [facility] Glucose [Mass/Vol] 159 mg/dL High 74-99 [facility] Comment on above: Performed By: #### 8 9577-1 #### OMERO KNIGHT ([id number]) [facility] ([facility]) [address] [place] [address] 42850 Glucose [Mass/Vol] 201 mg/dL High 74 - 99 mg/dL [facility] Interpretation and review of laboratory results Abnormal [facility] Glucose [Mass/Vol] 201 mg/dL High 74-99 [facility] Comment on above: Performed By: #### 8 9577-1 #### OMERO KNIGHT ([id number]) [facility] ([facility]) [address] [place] [address] 55851 Glucose [Mass/Vol] 154 mg/dL High 74 - 99 mg/dL [facility] Interpretation and review of laboratory results Abnormal [facility] Glucose [Mass/Vol] 154 mg/dL High 74-99 [facility] Comment on above: Performed By: #### 8 9577-1 #### OMERO KNIGHT ([id number]) [facility] ([facility]) [address] [place] [address] Glucose [Mass/Vol] 179 mg/dL High 74 - 99 mg/dL [facility] Interpretation and review of laboratory results Abnormal [facility] Glucose [Mass/Vol] 179 mg/dL High 74-99 [facility] Comment on above: Performed By: #### 2 341-6 ####OMERO KNIGHT ([id number])[facility] ([facility])[address] [place] [address] Basic metabolic 2000 panelon 10-13-2023 Anion gap [Moles/Vol] 13 mmol/L 10 - 2 0 mmol/L [facility] Calcium [Mass/Vol] 8.7 mg/dL 8.6 - 10. 3 mg/dL [facility] Chloride [Moles/Vol] 94 mmol/L Low 98 - 10 7 mmol/L [facility] CO2 [Moles/Vol] 26 mmol/L 21 - 32 mmol/L [facility] Creatinine [Mass/Vol] 0.75 mg/dL 0.50 - 1.05 mg/dL [facility] GFR/1.73 sq M.predicted among non-blacks MDRD (S/P/Bld) [Vol rate/Area] 83 mL/min/{1.73_m2} - PINF [facility] Comment on above: Calculations of hannah mated GFR are performed using the 2020 CKD-EPI Study Refit equation without the race variable for the IDMS-Traceable creatinine methods. https://jasn.asnjournals.org/content//ASN.06979 83179 Glucose [Mass/Vol] 186 mg/dL High 74 - 99 mg/dL [facility] Interpretation and review of laboratory results Abnormal [facility] Potassium [Moles/Vol] 4.0 mmol/L 3.5 - 5.3 mmol/L [facility] Sodium [Moles/Vol] 129 mmol/L Low 136 - 145 mmol/L [facility] Urea nitrogen [Mass/Vol] 32 mg/dL High 6 - 23 mg/dL [facility] Anion gap [Moles/Vol] 13 mmol/L Normal 10-20 [facility] Comment on above: Performed By: #### 2 4321-2 ####OMERO KNIGHT ([id number])[facility] ([facility] [place] [address] Calcium [Mass/Vol] 8.7 mg/dL Normal 8.6-10.3 [facility] Comment on above: Performed By: #### 2 4321-2 ####OMERO KNIGHT ([id number])[facility] ([facility])[address] [place] [address] 34726 Chloride [Moles/Vol] 94 mmol/L Low 98-107 [facility] Comment on above: Performed By: #### 2 4321-2 ####OMERO KNIGHT ([id number])[facility] ([facility])[address] [place] [address] 90814 CO2 [Moles/Vol] 26 mmol/L Normal 21-32 [facility] Comment on above: Performed By: #### 2 4321-2 ####OMERO KNIGHT ([id number])[facility] ([facility])[address] [place] [address] 16873 Creatinine [Mass/Vol] 0.75 mg/dL Normal 0.50-1.05 [facility] Comment on above: Performed By: #### 2 4321-2 ####OMERO KNIGHT ([id number])[facility] ([facility])[address] [place] [address] 17544 Glomerular filtration rate/1.73 sq M.predicted 83 mL/min/1.73m*2 Normal >60 [facility] Comment on above: Result Comment: Calc ulations of estimated GFR are performed using the 2020 CKD-EPI Study Refit equation without the race variable for the IDMS-Traceable creatinine methods. https://jasn.asnjournals.org/content//ASN.80245 84545 Performed By: #### 2 4321-2 ####OMERO KNIGHT ([id number])[facility] ([facility])[address] [place] [address] 97266 Glucose [Mass/Vol] 186 mg/dL High 74-99 [facility] Comment on above: Performed By: #### 2 4321-2 ####OMERO KNIGHT ([id number])[facility] ([facility])[address] [place] [address] 72867 Potassium [Moles/Vol] 4.0 mmol/L Normal 3.5-5.3 [facility] Comment on above: Performed By: #### 2 4321-2 ####OMERO KNIGHT ([id number])[facility] ([facility])[address] [place] [address] 07575 Sodium [Moles/Vol] 129 mmol/L Low 136-145 [facility] Comment on above: Performed By: #### 2 4321-2 ####OMERO KNIGHT ([id number])[facility] ([facility])[address] [place] [address] 87998 Urea nitrogen [Mass/Vol] 32 mg/dL High 6-23 [facility] Comment on above: Performed By: #### 2 4321-2 ####OMERO KNIGHT ([id number])[facility] ([facility])[address] [place] [address] 29752 CBC panel Auto (Bld)on 10-12 Erythrocyte distribution width (RBC) [Ratio] 14.4 % 11.5 - 14.5 % [facility] Hematocrit (Bld) [Volume fraction] 38.0 % 36.0 - 46.0 % [facility] Hemoglobin (Bld) [Mass/Vol] 12.1 g/dL 12.0 - 16.0 g/dL [facility] Interpretation and review of laboratory results Abnormal [facility] MCH (RBC) [Entitic mass] 26.5 pg 26.0 - 34.0 pg [facility] MCHC (RBC) [Mass/Vol] 31.8 g/dL Low 32.0 - 36.0 g/dL [facility] MCV (RBC) [Entitic vol] 83 fL 80 - 100 fL [facility] Nucleated RBC/100 WBC (Bld) [Ratio] 0.0 % [facility] Platelets (Bld) [#/Vol] 269 10*3/uL [facility] RBC (Bld) [#/Vol] 4.57 10*6/uL Unive [facility] WBC (Bld) [#/Vol] 18.1 10*3/uL High [facility] Erythrocyte distribution width (RBC) [Ratio] 14.4 % Normal 11.5-14.5 [facility] Comment on above: Performed By: #### 5 8410-2 ####OMERO KNIGHT ([id number])[facility] ([facility])[address] [place] [address] 10138 Hematocrit (Bld) [Volume fraction] 38.0 % Normal 36.0-46.0 [facility] Comment on above: Performed By: #### 5 8410-2 ####OMERO KNIGHT ([id number])[facility] ([facility])[address] [place] [address] 76661 Hemoglobin (Bld) [Mass/Vol] 12.1 g/dL Normal 12.0-16.0 [facility] Comment on above: Performed By: #### 5 8410-2 ####OMERO KNIGHT ([id number])[facility] ([facility])[address] [place] [address] 05294 MCH (RBC) [Entitic mass] 26.5 pg Normal 26.0-34.0 [facility] Comment on above: Performed By: #### 5 8410-2 ####OMERO KNIGHT ([id number])[facility] ([facility])[address] [place] [address] 12156 MCHC (RBC) [Mass/Vol] 31.8 g/dL Low 32.0-36.0 [facility] Comment on above: Performed By: #### 5 8410-2 ####OMERO KNIGHT ([id number])[facility] ([facility])[address] [place] [address] 53489 MCV (RBC) [Entitic vol] 83 fL Normal 80-100 [facility] Comment on above: Performed By: #### 5 8410-2 ####OMERO KNIGHT (57682)[facility] ([facility])[address] [place] [address] 30663 Nucleated RBC/100 WBC (Bld) [Ratio] 0.0 /100 WBCs Normal 0.0-0.0 [facility] Comment on above: Performed By: #### 5 8410-2 ####OMERO KNIGHT ([id number])[facility] ([facility])[address] [place] [address] 13620 Platelets (Bld) [#/Vol] 269 x10*3/uL Normal 150-450 [facility] Comment on above: Performed By: #### 5 8410-2 ####OMERO KNIGHT ([id number])[facility] ([facility])[address] [place] [address] 86213 RBC (Bld) [#/Vol] 4.57 x10*6/uL Normal 4.00-5.20 [facility] Comment on above: Performed By: #### 5 8410-2 ####OMERO KNIGHT ([id number])[facility] ([facility])[address] [place] [address] 02842 WBC (Bld) [#/Vol] 18.1 x10*3/uL High 4.4-11.3 [facility] Comment on above: Performed By: #### 5 8410-2 ####OMERO KNIGHT ([id number])[facility] ([facility])[address] [place] [address] 85693 Glucose Test strip manual (B ld) [Mass/Vol]on 10-13-2023 Glucose [Mass/Vol] 168 mg/dL High 74 - 99 mg/dL [facility] Interpretation and review of laboratory results Abnormal [facility] Glucose [Mass/Vol] 168 mg/dL High 74-99 [facility] Comment on above: Performed By: #### 2 341-6 ####OMERO KNIGHT ([id number])[facility] ([facility])[address] [place] [address] 06273 Glucose [Mass/Vol] 192 mg/dL High 74 - 99 mg/dL [facility] Comment on above: UZMA/ NOTIFIED Interpretation and review of laboratory results Abnormal [facility] Glucose [Mass/Vol] 192 mg/dL High 74-99 [facility] Comment on above: Result Comment: UZMA/Shaheen Licea NOTIFIED Performed By: #### 2 341-6 ####OMERO KNIGHT ([id number])[facility] ([facility])[address] [place] [address] 94478 Glucose [Mass/Vol] 157 mg/dL High 74 - 99 mg/dL [facility] Interpretation and review of laboratory results Abnormal [facility] Glucose [Mass/Vol] 157 mg/dL High 74-99 [facility] Comment on above: Performed By: #### 2 341-6 ####OMERO KNIGHT ([id number])[facility] ([facility])[address] [place] [address] 32893 Glucose [Mass/Vol] 167 mg/dL High 74 - 99 mg/dL [facility] Comment on above: UZMA/ NOTIFIED Interpretation and review of laboratory results Abnormal [facility] Glucose [Mass/Vol] 167 mg/dL High 74-99 [facility] Comment on above: Result Comment: FRIEDA Licea NOTIFIED Performed By: #### 2 341-6 ####OMERO KNIGHT ([id number])[facility] ([facility])[address] [place] [address] 22277 Bacteria identified Cx Nom ( U)Ordered By: Heather Messer on 10-12-2023 Interpretation and review of laboratory results Abnormal [facility] Basic metabolic 2000 panelon 10-12-2023 Anion gap [Moles/Vol] 12 mmol/L 10 - 2 0 mmol/L [facility] Calcium [Mass/Vol] 9.1 mg/dL 8.6 - 10. 3 mg/dL [facility] Chloride [Moles/Vol] 93 mmol/L Low 98 - 10 7 mmol/L [facility] CO2 [Moles/Vol] 28 mmol/L 21 - 32 mmol/L [facility] Creatinine [Mass/Vol] 0.87 mg/dL 0.50 - 1.05 mg/dL [facility] GFR/1.73 sq M.predicted among non-blacks MDRD (S/P/Bld) [Vol rate/Area] 70 mL/min/{1.73_m2} - PINF [facility] Comment on above: Calculations of hannah mated GFR are performed using the 2020 CKD-EPI Study Refit equation without the race variable for the IDMS-Traceable creatinine methods. https://jasn.asnjournals.org/content//ASN.19885 02559 Glucose [Mass/Vol] 191 mg/dL High 74 - 99 mg/dL [facility] Interpretation and review of laboratory results Abnormal [facility] Potassium [Moles/Vol] 3.3 mmol/L Low 3.5 - 5.3 mmol/L [facility] Sodium [Moles/Vol] 130 mmol/L Low 136 - 145 mmol/L [facility] Urea nitrogen [Mass/Vol] 38 mg/dL High 6 - 23 mg/dL [facility] Anion gap [Moles/Vol] 12 mmol/L Normal 10-20 [facility] Comment on above: Performed By: #### 5 7021-8 #### OMERO KNIGHT ([id number]) [facility] ([facility]) [address] [place] [address] 09006 Calcium [Mass/Vol] 9.1 mg/dL Normal 8.6-10.3 [facility] Comment on above: Performed By: #### 5 7021-8 #### OMERO KNIGHT ([id number]) [facility] ([facility]) [address] [place] [address] 62906 Chloride [Moles/Vol] 93 mmol/L Low 98-107 [facility] Comment on above: Performed By: #### 5 7021-8 #### OMERO KNIGHT ([id number]) [facility] ([facility]) [address] [place] [address] CO2 [Moles/Vol] 28 mmol/L Normal 21-32 [facility] Comment on above: Performed By: #### 5 7021-8 #### OMERO KNIGHT (05391) [facility] ([facility]) [address] [place] [address] 92318 Creatinine [Mass/Vol] 0.87 mg/dL Normal 0.50-1.05 [facility] Comment on above: Performed By: #### 5 7021-8 #### OMERO KNIGHT ([id number]) [facility] ([facility]) [address] [place] [address] 51886 Glomerular filtration rate/1.73 sq M.predicted 70 mL/min/1.73m*2 Normal >60 [facility] Comment on above: Result Comment: Calc ulations of estimated GFR are performed using the 2020 CKD-EPI Study Refit equation without the race variable for the IDMS-Traceable creatinine methods. https://jasn.asnjournals.org/content/early//ASN.48452 09323 Performed By: #### 5 7021-8 #### OMERO KNIGHT ([id number]) [facility] ([facility]) [address] [place] [address] 20432 Glucose [Mass/Vol] 191 mg/dL High 74-99 [facility] Comment on above: Performed By: #### 5 7021-8 #### OMERO KNIGHT ([id number]) [facility] ([facility]) [address] [place] [address] 99465 Potassium [Moles/Vol] 3.3 mmol/L Low 3.5-5.3 [facility] Comment on above: Performed By: #### 5 7021-8 #### OMERO KNIGHT (33704) [facility] ([facility]) [address] [place] [address] 35327 Sodium [Moles/Vol] 130 mmol/L Low 136-145 [facility] Comment on above: Performed By: #### 5 7021-8 #### OMERO KNIGHT ([id number]) [facility] ([facility]) [address] [place] [address] Urea nitrogen [Mass/Vol] 38 mg/dL High 6-23 [facility] Comment on above: Performed By: #### 5 7021-8 #### OMERO KNIGHT ([id number]) [facility] ([facility]) [address] [place] [address] CBC panel Auto (Bld)on 10-11 Erythrocyte distribution width (RBC) [Ratio] 14.2 % 11.5 - 14.5 % [facility] Hematocrit (Bld) [Volume fraction] 40.3 % 36.0 - 46.0 % [facility] Hemoglobin (Bld) [Mass/Vol] 13.0 g/dL 12.0 - 16.0 g/dL [facility] Interpretation and review of laboratory results Abnormal [facility] MCH (RBC) [Entitic mass] 26.7 pg 26.0 - 34.0 pg [facility] MCHC (RBC) [Mass/Vol] 32.3 g/dL 32.0 - 36.0 g/dL [facility] MCV (RBC) [Entitic vol] 83 fL 80 - 100 fL [facility] Nucleated RBC/100 WBC (Bld) [Ratio] 0.0 % [facility] Platelets (Bld) [#/Vol] 300 10*3/uL [facility] RBC (Bld) [#/Vol] 4.86 10*6/uL [facility] WBC (Bld) [#/Vol] 23.0 10*3/uL High [facility] Erythrocyte distribution width (RBC) [Ratio] 14.2 % Normal 11.5-14.5 [facility] Comment on above: Performed By: #### 5 7021-8 #### OMERO KNIGHT (55603) [facility] ([facility]) [address] [place] [address] Hematocrit (Bld) [Volume fraction] 40.3 % Normal 36.0-46.0 [facility] Comment on above: Performed By: #### 5 7021-8 #### OMERO KNIGHT ([id number]) [facility] ([facility]) [address] [place] [address] 47797 Hemoglobin (Bld) [Mass/Vol] 13.0 g/dL Normal 12.0-16.0 [facility] Comment on above: Performed By: #### 5 7021-8 #### OMERO KNIGHT ([id number]) [facility] ([facility]) [address] [place] [address] 77075 MCH (RBC) [Entitic mass] 26.7 pg Normal 26.0-34.0 [facility] Comment on above: Performed By: #### 5 7021-8 #### OMERO KNIGHT ([id number]) [facility] ([facility]) [address] [place] [address] MCHC (RBC) [Mass/Vol] 32.3 g/dL Normal 32.0-36.0 [facility] Comment on above: Performed By: #### 5 7021-8 #### OMERO KNIGHT (07362) [facility] ([facility]) [address] [place] [address] 88155 MCV (RBC) [Entitic vol] 83 fL Normal 80-100 [facility] Comment on above: Performed By: #### 5 7021-8 #### OMERO KNIGHT ([id number]) [facility] ([facility]) [address] [place] [address] 90309 Nucleated RBC/100 WBC (Bld) [Ratio] 0.0 /100 WBCs Normal 0.0-0.0 [facility] Comment on above: Performed By: #### 5 7021-8 #### OMERO KNIGHT ([id number]) [facility] ([facility]) [address] [place] [address] 67998 Platelets (Bld) [#/Vol] 300 x10*3/uL Normal 150-450 [facility] Comment on above: Performed By: #### 5 7021-8 #### OMERO KNIGHT ([id number]) [facility] ([facility]) [address] [place] [address] 94415 RBC (Bld) [#/Vol] 4.86 x10*6/uL Normal 4.00-5.20 [facility] Comment on above: Performed By: #### 5 7021-8 #### OMERO KNIGHT ([id number]) [facility] ([facility]) [address] [place] [address] 31508 WBC (Bld) [#/Vol] 23.0 x10*3/uL High 4.4-11.3 [facility] Comment on above: Performed By: #### 5 7021-8 #### OMERO KNIGHT ([id number]) [facility] ([facility]) [address] [place], [place] [address] Glucose Test strip manual (B ld) [Mass/Vol]on 10-12-2023 Glucose [Mass/Vol] 189 mg/dL High 74 - 99 mg/dL [facility] Interpretation and review of laboratory results Abnormal [facility] Glucose [Mass/Vol] 189 mg/dL High 74-99 [facility] Comment on above: Performed By: #### 2 341-6 ####OMERO KNIGHT ([id number])[facility] ([facility])[address] [place] [address] 91302 Glucose [Mass/Vol] 264 mg/dL High 74 - 99 mg/dL [facility] Interpretation and review of laboratory results Abnormal [facility] Glucose [Mass/Vol] 264 mg/dL High 74-99 [facility] Comment on above: Performed By: #### 5 7021-8 #### OMERO KNIGHT (76954) [facility] ([facility]) [address] [place] [address] 83236 Glucose [Mass/Vol] 167 mg/dL High 74 - 99 mg/dL [facility] Interpretation and review of laboratory results Abnormal [facility] Glucose [Mass/Vol] 167 mg/dL High 74-99 [facility] Comment on above: Performed By: #### 5 7021-8 #### OMERO KNIGHT ([id number]) [facility] ([facility]) [address] [place] [address] Glucose [Mass/Vol] 179 mg/dL High 74 - 99 mg/dL [facility] Interpretation and review of laboratory results Abnormal [facility] Glucose [Mass/Vol] 179 mg/dL High 74-99 [facility] Comment on above: Performed By: #### 5 7021-8 #### OMERO KNIGTH ([id number]) [facility] ([facility]) [address] [place] [address] Urine CultureOrdered By: Anastasiia Messer on 10-12-2023 Bacteria identified Cx Nom (U) >100,000 Proteus mirabilis Abnormal [facility] Basic metabolic 2000 panelon 10-11-2023 Anion gap [Moles/Vol] 17 mmol/L 10 - 2 0 mmol/L [facility] Calcium [Mass/Vol] 8.6 mg/dL 8.6 - 10. 3 mg/dL [facility] Chloride [Moles/Vol] 92 mmol/L Low 98 - 10 7 mmol/L [facility] CO2 [Moles/Vol] 21 mmol/L 21 - 32 mmol/L [facility] Creatinine [Mass/Vol] 0.90 mg/dL 0.50 - 1.05 mg/dL [facility] GFR/1.73 sq M.predicted among non-blacks MDRD (S/P/Bld) [Vol rate/Area] 67 mL/min/{1.73_m2} - PINF [facility] Comment on above: Calculations of hannah mated GFR are performed using the 2020 CKD-EPI Study Refit equation without the race variable for the IDMS-Traceable creatinine methods. https://jasn.asnjournals.org/content//ASN.67625 61853 Glucose [Mass/Vol] 192 mg/dL High 74 - 99 mg/dL [facility] Interpretation and review of laboratory results Abnormal [facility] Potassium [Moles/Vol] 4.0 mmol/L 3.5 - 5.3 mmol/L [facility] Comment on above: MILD HEMOLYSIS DETEC KAYLA. The result may be falsely elevated due to hemolysis or other interferents. Clinical correlation is recommended. Repeat testing may be considered. Sodium [Moles/Vol] 126 mmol/L Low 136 - 145 mmol/L [facility] Urea nitrogen [Mass/Vol] 35 mg/dL High 6 - 23 mg/dL [facility] Anion gap [Moles/Vol] 17 mmol/L Normal 10-20 [facility] Comment on above: Performed By: #### 2 341-6 #### OMERO KNIGHT ([id number]) [facility] ([facility]) [address] [place] [address] 54364 Calcium [Mass/Vol] 8.6 mg/dL Normal 8.6-10.3 [facility] Comment on above: Performed By: #### 2 341-6 #### OMERO KNIGHT (15405) [facility] ([facility]) [address] [place] [address] 09008 Chloride [Moles/Vol] 92 mmol/L Low 98-107 [facility] Comment on above: Performed By: #### 2 341-6 #### OMERO KNIGHT (51229) [facility] ([facility]) [address] [place] [address] 08199 CO2 [Moles/Vol] 21 mmol/L Normal 21-32 [facility] Comment on above: Performed By: #### 2 341-6 #### OMERO KNIGHT ([id number]) [facility] ([facility]) [address] [place] [address] 05087 Creatinine [Mass/Vol] 0.90 mg/dL Normal 0.50-1.05 [facility] Comment on above: Performed By: #### 2 341-6 #### OMERO KNIGHT ([id number]) [facility] ([facility]) [address] [place] [address] 66175 Glomerular filtration rate/1.73 sq M.predicted 67 mL/min/1.73m*2 Normal >60 [facility] Comment on above: Result Comment: Calc ulations of estimated GFR are performed using the 2020 CKD-EPI Study Refit equation without the race variable for the IDMS-Traceable creatinine methods. https://jasn.asnjournals.org/content//ASN.03225 93773 Performed By: #### 2 341-6 #### OMERO KNIGHT ([id number]) [facility] ([facility]) [address] [place] [address] 56787 Glucose [Mass/Vol] 192 mg/dL High 74-99 [facility] Comment on above: Performed By: #### 2 341-6 #### OMERO KNIGHT ([id number]) [facility] ([facility]) [address] [place] [address] 11583 Potassium [Moles/Vol] 4.0 mmol/L Normal 3.5-5.3 [facility] Comment on above: Result Comment: MILD HEMOLYSIS DETECTED. The result may be falsely elevated due to hemolysis or other interferents. Clinical correlation is recommended. Repeat testing may be considered. Performed By: #### 2 341-6 #### OMERO KNIGHT ([id number]) [facility] ([facility]) [address] [place] [address] 94327 Sodium [Moles/Vol] 126 mmol/L Low 136-145 [facility] Comment on above: Performed By: #### 2 341-6 #### OMERO KNIGHT ([id number]) [facility] ([facility]) [address] [place] [address] 23716 Urea nitrogen [Mass/Vol] 35 mg/dL High 6-23 [facility] Comment on above: Performed By: #### 2 341-6 #### OMERO KNIGHT ([id number]) [facility] ([facility]) [address] [place] [address] 46794 CBC panel Auto (Bld)on 10-10 Erythrocyte distribution width (RBC) [Ratio] 14.2 % 11.5 - 14.5 % [facility] Hematocrit (Bld) [Volume fraction] 37.3 % 36.0 - 46.0 % [facility] Hemoglobin (Bld) [Mass/Vol] 12.3 g/dL 12.0 - 16.0 g/dL [facility] Interpretation and review of laboratory results Abnormal [facility] MCH (RBC) [Entitic mass] 27.4 pg 26.0 - 34.0 pg [facility] MCHC (RBC) [Mass/Vol] 33.0 g/dL 32.0 - 36.0 g/dL [facility] MCV (RBC) [Entitic vol] 83 fL 80 - 100 fL [facility] Nucleated RBC/100 WBC (Bld) [Ratio] 0.0 % [facility] Platelets (Bld) [#/Vol] 218 10*3/uL [facility] RBC (Bld) [#/Vol] 4.49 10*6/uL [facility] WBC (Bld) [#/Vol] 20.1 10*3/uL High [facility] [place] [place] Erythrocyte distribution width (RBC) [Ratio] 14.2 % Normal 11.5-14.5 [facility] Comment on above: Performed By: #### 2 341-6 #### OMERO KNIGHT ([id number]) [facility] ([facility]) [address] [place] [address] 51899 Hematocrit (Bld) [Volume fraction] 37.3 % Normal 36.0-46.0 [facility] Comment on above: Performed By: #### 2 341-6 #### OMERO KNIGHT ([id number]) [facility] ([facility]) [address] [place] [address] 34634 Hemoglobin (Bld) [Mass/Vol] 12.3 g/dL Normal 12.0-16.0 [facility] Comment on above: Performed By: #### 2 341-6 #### OMERO KNIGHT ([id number]) [facility] ([facility]) [address] [place] [address] 35929 MCH (RBC) [Entitic mass] 27.4 pg Normal 26.0-34.0 [facility] Comment on above: Performed By: #### 2 341-6 #### OMERO KNIGHT ([id number]) [facility] ([facility]) [address] [place] [address] 79755 MCHC (RBC) [Mass/Vol] 33.0 g/dL Normal 32.0-36.0 [facility] Comment on above: Performed By: #### 2 341-6 #### OMERO KNIGHT ([id number]) [facility] ([facility]) [address] [place] [address] 82858 MCV (RBC) [Entitic vol] 83 fL Normal 80-100 [facility] Comment on above: Performed By: #### 2 341-6 #### OMERO KNIGHT ([id number]) [facility] ([facility]) [address] [place] [address] 03165 Nucleated RBC/100 WBC (Bld) [Ratio] 0.0 /100 WBCs Normal 0.0-0.0 [facility] Comment on above: Performed By: #### 2 341-6 #### OMERO KNIGHT ([id number]) [facility] ([facility]) [address] [place] [address] 68179 Platelets (Bld) [#/Vol] 218 x10*3/uL Normal 150-450 [facility] Comment on above: Performed By: #### 2 341-6 #### OMERO KNIGHT ([id number]) [facility] ([facility]) [address] [place] [address] 71244 RBC (Bld) [#/Vol] 4.49 x10*6/uL Normal 4.00-5.20 [facility] Comment on above: Performed By: #### 2 341-6 #### OMERO KNIGHT ([id number]) [facility] ([facility]) [address] [place] [address] 86925 WBC (Bld) [#/Vol] 20.1 x10*3/uL High 4.4-11.3 [facility] Comment on above: Performed By: #### 2 341-6 #### OMERO KNIGHT ([id number]) [facility] ([facility]) [address] [place] [address] 75174 Glucose Test strip manual (B ld) [Mass/Vol]on 10-11-2023 Glucose [Mass/Vol] 212 mg/dL High 74 - 99 mg/dL [facility] Interpretation and review of laboratory results Abnormal [facility] Glucose [Mass/Vol] 212 mg/dL High 74-99 [facility] Comment on above: Performed By: #### 5 7021-8 #### OMERO KNIGHT ([id number]) [facility] ([facility]) [address] [place] [address] 74184 Glucose [Mass/Vol] 204 mg/dL High 74 - 99 mg/dL [facility] Interpretation and review of laboratory results Abnormal [facility] Glucose [Mass/Vol] 204 mg/dL High 74-99 [facility] Comment on above: Performed By: #### 5 7021-8 #### OMERO KNIGHT ([id number]) [facility] ([facility]) [address] [place] [address] 52779 Glucose [Mass/Vol] 194 mg/dL High 74 - 99 mg/dL [facility] Interpretation and review of laboratory results Abnormal [facility] Glucose [Mass/Vol] 194 mg/dL High 74-99 [facility] Comment on above: Performed By: #### 5 7021-8 #### OMERO KNIGHT ([id number]) [facility] ([facility]) [address] [place] [address] 86709 Glucose [Mass/Vol] 182 mg/dL High 74 - 99 mg/dL [facility] Comment on above: RN/ NOTIFIED Interpretation and review of laboratory results Abnormal [facility] Glucose [Mass/Vol] 182 mg/dL High 74-99 [facility] Comment on above: Result Comment: FRIEDA Licea NOTIFIED Performed By: #### 5 7021-8 #### OMERO KNIGHT ([id number]) [facility] ([facility]) [address] [place] [address] 44327 Bacteria identifiedon 2023 Bacteria identified Cx Nom (U) Test: Urine Culture Specimen Source: Clean Catch/Voided Specimen Type: Urine Specimen Date: 10/10/20238 Result Date: 10/12/20231546 Result Status: Final result Abnormal: Yes Resulting Lab: [facility] [address] [address] CULTURE >100,000 Proteus mirabilis (Abnormal) SUSCEPTIBILITY Proteus mirabilis METHOD MICROSCAN --- AMPICILLIN <=8.000 mcg/mL Susceptible CEFAZOLIN <=2 mcg/mL Susceptible CEFAZOLIN (UNCOMPLICATED UTIS ONLY) <=2 mcg/mL Susceptible CIPROFLOXACIN <=0.250 mcg/mL Susceptible GENTAMICIN <=2.000 mcg/mL Susceptible NITROFURANTOIN >64 mcg/mL Resistant PIPERACILLIN/TAZOBACTAM <=8.000 mcg/mL Susceptible TETRACYCLINE >8.000 mcg/mL Resistant TRIMETHOPRIM/SULFAMETHOX AZOLE <=2/38 mcg/mL Susceptible Abnormal [facility] Comment on above: Performed By: #### 5 7021-8 #### JAMIL EUGENE ([id number]) [facility] ([facility]) [address] [place] [address] Basic metabolic 2000 panelon 10-10-2023 Anion gap [Moles/Vol] 14 mmol/L 10 - 2 0 mmol/L [facility] Calcium [Mass/Vol] 8.5 mg/dL Low 8.6 - 10. 3 mg/dL [facility] Chloride [Moles/Vol] 88 mmol/L Low 98 - 10 7 mmol/L [facility] CO2 [Moles/Vol] 27 mmol/L 21 - 32 mmol/L [facility] Creatinine [Mass/Vol] 1.13 mg/dL High 0.50 - 1.05 mg/dL [facility] GFR/1.73 sq M.predicted among non-blacks MDRD (S/P/Bld) [Vol rate/Area] 51 mL/min/{1.73_m2} Low - PINF [facility] Comment on above: Calculations of hannah mated GFR are performed using the 2020 CKD-EPI Study Refit equation without the race variable for the IDMS-Traceable creatinine methods. https://jasn.asnjournals.org/content//ASN.28218 58028 Glucose [Mass/Vol] 180 mg/dL High 74 - 99 mg/dL [facility] Interpretation and review of laboratory results Abnormal [facility] Potassium [Moles/Vol] 3.8 mmol/L 3.5 - 5.3 mmol/L [facility] Sodium [Moles/Vol] 125 mmol/L Low 136 - 145 mmol/L [facility] Urea nitrogen [Mass/Vol] 33 mg/dL High 6 - 23 mg/dL [facility] Anion gap [Moles/Vol] 14 mmol/L Normal 10-20 [facility] Comment on above: Performed By: #### 2 341-6 #### OMERO KNIGHT ([id number]) [facility] ([facility]) [address] [place] [address] Calcium [Mass/Vol] 8.5 mg/dL Low 8.6-10.3 [facility] Comment on above: Performed By: #### 2 341-6 #### OMERO KNIGHT ([id number]) [facility] ([facility]) [address] [place] [address] Chloride [Moles/Vol] 88 mmol/L Low 98-107 [facility] Comment on above: Performed By: #### 2 341-6 #### OMERO KNIGHT ([id number]) [facility] ([facility]) [address] [place] [address] CO2 [Moles/Vol] 27 mmol/L Normal 21-32 [facility] Comment on above: Performed By: #### 2 341-6 #### OMERO KNIGHT ([id number]) [facility] ([facility]) [address] [place] [address] Creatinine [Mass/Vol] 1.13 mg/dL High 0.50-1.05 [facility] Comment on above: Performed By: #### 2 341-6 #### OMERO KNIGHT ([id number]) [facility] ([facility]) [address] [place] [address] 91109 Glomerular filtration rate/1.73 sq M.predicted 51 mL/min/1.73m*2 Low >60 [facility] Comment on above: Result Comment: Calc ulations of estimated GFR are performed using the 2020 CKD-EPI Study Refit equation without the race variable for the IDMS-Traceable creatinine methods. https://jasn.asnjournals.org/content/early//ASN.35358 64861 Performed By: #### 2 341-6 #### OMERO KNIGHT ([id number]) [facility] ([facility]) [address] [place] [address] 99351 Glucose [Mass/Vol] 180 mg/dL High 74-99 [facility] Comment on above: Performed By: #### 2 341-6 #### OMERO KNIGHT ([id number]) [facility] ([facility]) [address] [place] [address] 88538 Potassium [Moles/Vol] 3.8 mmol/L Normal 3.5-5.3 [facility] Comment on above: Performed By: #### 2 341-6 #### OMERO KNIGHT ([id number]) [facility] ([facility]) [address] [place] [address] 14003 Sodium [Moles/Vol] 125 mmol/L Low 136-145 [facility] Comment on above: Performed By: #### 2 341-6 #### OMERO KNIGHT ([id number]) [facility] ([facility]) [address] [place] [address] 21738 Urea nitrogen [Mass/Vol] 33 mg/dL High 6-23 [facility] Comment on above: Performed By: #### 2 341-6 #### OMERO KNIGHT ([id number]) [facility] ([facility]) [address] [place] [address] 59036 Anion gap [Moles/Vol] 16 mmol/L 10 - 2 0 mmol/L [facility] Calcium [Mass/Vol] 8.8 mg/dL 8.6 - 10. 3 mg/dL [facility] Chloride [Moles/Vol] 89 mmol/L Low 98 - 10 7 mmol/L [facility] CO2 [Moles/Vol] 24 mmol/L 21 - 32 mmol/L [facility] Creatinine [Mass/Vol] 1.08 mg/dL High 0.50 - 1.05 mg/dL [facility] GFR/1.73 sq M.predicted among non-blacks MDRD (S/P/Bld) [Vol rate/Area] 54 mL/min/{1.73_m2} Low - PINF [facility] Comment on above: Calculations of hannah mated GFR are performed using the 2020 CKD-EPI Study Refit equation without the race variable for the IDMS-Traceable creatinine methods. https://jasn.asnjournals.org/content/early//ASN.89113 99175 Glucose [Mass/Vol] 202 mg/dL High 74 - 99 mg/dL [facility] Interpretation and review of laboratory results Abnormal [facility] Potassium [Moles/Vol] 3.9 mmol/L 3.5 - 5.3 mmol/L [facility] Sodium [Moles/Vol] 125 mmol/L Low 136 - 145 mmol/L [facility] Urea nitrogen [Mass/Vol] 32 mg/dL High 6 - 23 mg/dL [facility] Anion gap [Moles/Vol] 16 mmol/L Normal 10-20 [facility] Comment on above: Performed By: #### 2 341-6 #### OMERO KNIGHT ([id number]) [facility] ([facility]) [address] [place] [address] 22302 Calcium [Mass/Vol] 8.8 mg/dL Normal 8.6-10.3 [facility] Comment on above: Performed By: #### 2 341-6 #### OMERO KNIGHT ([id number]) [facility] ([facility]) [address] [place] [address] Chloride [Moles/Vol] 89 mmol/L Low 98-107 [facility] Comment on above: Performed By: #### 2 341-6 #### OMERO KNIGHT ([id number]) [facility] ([facility]) [address] [place] [address] CO2 [Moles/Vol] 24 mmol/L Normal 21-32 [facility] Comment on above: Performed By: #### 2 341-6 #### OMERO KNIGHT ([id number]) [facility] ([facility]) [address] [place] [address] 90901 Creatinine [Mass/Vol] 1.08 mg/dL High 0.50-1.05 [facility] Comment on above: Performed By: #### 2 341-6 #### OMERO KNIGHT ([id number]) [facility] ([facility]) [address] [place] [address] 65901 Glomerular filtration rate/1.73 sq M.predicted 54 mL/min/1.73m*2 Low >60 [facility] Comment on above: Result Comment: Calc ulations of estimated GFR are performed using the 2020 CKD-EPI Study Refit equation without the race variable for the IDMS-Traceable creatinine methods. https://jasn.asnjournals.org/content/early/ASN.44878 63084 Performed By: #### 2 341-6 #### OMERO KNIGHT ([id number]) [facility] ([facility]) [facility] [place] [address] Glucose [Mass/Vol] 202 mg/dL High 74-99 [facility] Comment on above: Performed By: #### 2 341-6 #### OMERO KNIGHT ([id number]) [facility] ([facility]) [address] [place] [address] 10796 Potassium [Moles/Vol] 3.9 mmol/L Normal 3.5-5.3 [facility] Comment on above: Performed By: #### 2 341-6 #### OMERO KNIGHT ([id number]) [facility] ([facility]) [address] [place] [address] Sodium [Moles/Vol] 125 mmol/L Low 136-145 [facility] Comment on above: Performed By: #### 2 341-6 #### JAMIL LISAZOILA ([id number]) [facility] ([facility]) [address] [place] [address] Urea nitrogen [Mass/Vol] 32 mg/dL High 6-23 [facility] Comment on above: Performed By: #### 2 341-6 #### JAMIL LISAZOILA ([id number]) [facility] ([facility]) [address] [place] [address] Anion gap [Moles/Vol] 17 mmol/L [facility] Calcium [Mass/Vol] 9.3 mg/dL 8.6 - 10. 3 mg/dL [facility] Chloride [Moles/Vol] 86 mmol/L Low 98 - 10 7 mmol/L [facility] CO2 [Moles/Vol] 27 mmol/L 21 - 32 mmol/L [facility] Creatinine [Mass/Vol] 1.09 mg/dL High 0.50 - 1.05 mg/dL [facility] GFR/1.73 sq M.predicted among non-blacks MDRD (S/P/Bld) [Vol rate/Area] 53 mL/min/{1.73_m2} Low - PINF [facility] Comment on above: Calculations of hannah mated GFR are performed using the 2020 CKD-EPI Study Refit equation without the race variable for the IDMS-Traceable creatinine methods. https://jasn.asnjournals.org/content//ASN.24659 48606 Glucose [Mass/Vol] 171 mg/dL High 74 - 99 mg/dL [facility] Interpretation and review of laboratory results Abnormal [facility] Potassium [Moles/Vol] 4.2 mmol/L 3.5 - 5.3 mmol/L [facility] Sodium [Moles/Vol] 126 mmol/L Low 136 - 145 mmol/L [facility] Urea nitrogen [Mass/Vol] 31 mg/dL High 6 - 23 mg/dL [facility] Anion gap [Moles/Vol] 17 mmol/L Normal [facility] Comment on above: Performed By: #### 2 4321-2 #### OMERO KNIGHT ([id number]) [facility] ([facility]) [address] [place] [address] Calcium [Mass/Vol] 9.3 mg/dL Normal 8.6-10.3 [facility] Comment on above: Performed By: #### 2 4321-2 #### OMERO KNIGHT ([id number]) [facility] ([facility]) [facility] [place] [address] Chloride [Moles/Vol] 86 mmol/L Low 98-107 [facility] Comment on above: Performed By: #### 2 4321-2 #### OMERO KNIGHT ([id number]) [facility] ([facility]) [address] [place] [address] CO2 [Moles/Vol] 27 mmol/L Normal 21-32 [facility] Comment on above: Performed By: #### 2 4321-2 #### OMERO KNIGHT ([id number]) [facility] ([facility]) [address] [place] [address] Creatinine [Mass/Vol] 1.09 mg/dL High 0.50-1.05 [facility] Comment on above: Performed By: #### 2 4321-2 #### OMERO KNIGHT ([id number]) [facility] ([facility]) [address] [place] [address] Glomerular filtration rate/1.73 sq M.predicted 53 mL/min/1.73m*2 Low >60 [facility] Comment on above: Result Comment: Calc ulations of estimated GFR are performed using the 2020 CKD-EPI Study Refit equation without the race variable for the IDMS-Traceable creatinine methods. https://jasn.asnjournals.org/content//ASN.51787 65047 Performed By: #### 2 4321-2 #### OMERO KNIGHT ([id number]) [facility] ([facility]) [address] [place] [address] 29642 Glucose [Mass/Vol] 171 mg/dL High 74-99 [facility] Comment on above: Performed By: #### 2 4321-2 #### OMERO KNIGHT ([id number]) [facility] ([facility]) [address] [place] [address] 80219 Potassium [Moles/Vol] 4.2 mmol/L Normal 3.5-5.3 [facility] Comment on above: Performed By: #### 2 4321-2 #### OMERO KNIGHT ([id number]) [facility] ([facility]) [address] [place] [address] 07550 Sodium [Moles/Vol] 126 mmol/L Low 136-145 [facility] Comment on above: Performed By: #### 2 4321-2 #### OMERO KNIGHT ([id number]) [facility] ([facility]) [address] [place] [address] 72776 Urea nitrogen [Mass/Vol] 31 mg/dL High 6-23 [facility] Comment on above: Performed By: #### 2 4321-2 #### OMERO KNIGHT ([id number]) [facility] ([facility]) [address] [place] [address] 12177 CBC W Auto Differential pane l (Bld)on 10-10-2023 Basophils (Bld) [#/Vol] 0.05 10*3/uL [facility] Basophils/100 WBC (Bld) 0.3 % 0.0 - 2.0 % [facility] Eosinophils (Bld) [#/Vol] 0.03 10*3/uL [facility] Eosinophils/100 WBC (Bld) 0.2 % 0.0 - 6.0 % [facility] Erythrocyte distribution width (RBC) [Ratio] 13.9 % 11.5 - 14.5 % [facility] Hematocrit (Bld) [Volume fraction] 41.4 % 36.0 - 46.0 % [facility] Hemoglobin (Bld) [Mass/Vol] 13.6 g/dL 12.0 - 16.0 g/dL [facility] Immature granulocytes (Bld) [#/Vol] 0.23 10*3/uL [facility] Immature granulocytes/100 WBC (Bld) 1.3 % High 0.0 - 0.9 % [facility] Comment on above: Immature Granulocyte Count (IG) includes promyelocytes, myelocytes and metamyelocytes but does not include bands. Percent differential counts (%) should be interpreted in the context of the absolute cell counts (cells/UL). Interpretation and review of laboratory results Abnormal [facility] Lymphocytes (Bld) [#/Vol] 0.76 10*3/uL Low [facility] Lymphocytes/100 WBC (Bld) 4.4 % 13.0 - 44.0 % [facility] MCH (RBC) [Entitic mass] 27.0 pg 26.0 - 34.0 pg [facility] MCHC (RBC) [Mass/Vol] 32.9 g/dL 32.0 - 36.0 g/dL [facility] MCV (RBC) [Entitic vol] 82 fL 80 - 100 fL [facility] Monocytes (Bld) [#/Vol] 0.88 10*3/uL High [facility] Monocytes/100 WBC (Bld) 5.1 % 2.0 - 10.0 % [facility] Neutrophils (Bld) [#/Vol] 15.29 10*3/uL High [facility] Comment on above: Percent differential counts (%) should be interpreted in the context of the absolute cell counts (cells/uL). Neutrophils/100 WBC (Bld) 88.7 % 40.0 - 80.0 % [facility] Nucleated RBC/100 WBC (Bld) [Ratio] 0.0 % [facility] Platelets (Bld) [#/Vol] 251 10*3/uL [facility] RBC (Bld) [#/Vol] 5.03 10*6/uL [facility] WBC (Bld) [#/Vol] 17.2 10*3/uL High [facility] [place] [place] Basophils (Bld) [#/Vol] 0.05 x10*3/uL Normal 0.00-0.10 [facility] Comment on above: Performed By: #### 5 7021-8 #### OMERO KNIGHT ([id number]) [facility] ([facility]) [address] [place] [address] 73135 Basophils/100 WBC (Bld) 0.3 % Normal 0.0-2.0 [facility] Comment on above: Performed By: #### 5 7021-8 #### OMERO KNIGHT ([id number]) [facility] ([facility]) [address] [place] [address] 35927 Eosinophils (Bld) [#/Vol] 0.03 x10*3/uL Normal 0.00-0.40 [facility] Comment on above: Performed By: #### 5 7021-8 #### OMERO KNIGHT ([id number]) [facility] ([facility]) [address] [place] [address] 94731 Eosinophils/100 WBC (Bld) 0.2 % Normal 0.0-6.0 [facility] Comment on above: Performed By: #### 5 7021-8 #### OMERO KNIGHT ([id number]) [facility] ([facility]) [address] [place] [address] 16170 Erythrocyte distribution width (RBC) [Ratio] 13.9 % Normal 11.5-14.5 [facility] Comment on above: Performed By: #### 5 7021-8 #### OMERO KNIGHT ([id number]) [facility] ([facility]) [address] [place] [address] 83912 Hematocrit (Bld) [Volume fraction] 41.4 % Normal 36.0-46.0 [facility] Comment on above: Performed By: #### 5 7021-8 #### OMERO KNIGHT ([id number]) [facility] ([facility]) [address] [place] [address] 76369 Hemoglobin (Bld) [Mass/Vol] 13.6 g/dL Normal 12.0-16.0 [facility] Comment on above: Performed By: #### 5 7021-8 #### OMERO KNIGHT ([id number]) [facility] ([facility]) [address] [place] [address] 06111 Immature granulocytes (Bld) [#/Vol] 0.23 x10*3/uL Normal 0.00-0.50 [facility] Comment on above: Performed By: #### 5 7021-8 #### OMERO KNIGHT ([id number]) [facility] ([facility]) [address] [place] [address] 35727 Immature granulocytes/100 WBC (Bld) 1.3 % High 0.0-0.9 [facility] Comment on above: Result Comment: Martina ture Granulocyte Count (IG) includes promyelocytes, myelocytes and metamyelocytes but does not include bands. Percent differential counts (%) should be interpreted in the context of the absolute cell counts (cells/UL). Performed By: #### 5 7021-8 #### OMERO KNIGHT (22643) [facility] ([facility]) [address] [place] [address] 49616 Lymphocytes (Bld) [#/Vol] 0.76 x10*3/uL Low 0.80-3.00 [facility] Comment on above: Performed By: #### 5 7021-8 #### OMERO KNIGHT ([id number]) [facility] ([facility]) [address] [place] [address] 56383 Lymphocytes/100 WBC (Bld) 4.4 % Normal 13.0-44.0 [facility] Comment on above: Performed By: #### 5 7021-8 #### OMERO KNIGHT ([id number]) [facility] ([facility]) [address] [place] [address] 68709 MCH (RBC) [Entitic mass] 27.0 pg Normal 26.0-34.0 [facility] Comment on above: Performed By: #### 5 7021-8 #### OMERO KNIGHT ([id number]) [facility] ([facility]) [address] [place] [address] 41616 MCHC (RBC) [Mass/Vol] 32.9 g/dL Normal 32.0-36.0 [facility] Comment on above: Performed By: #### 5 7021-8 #### OMERO KNIGHT ([id number]) [facility] ([facility]) [address] [place] [address] 89735 MCV (RBC) [Entitic vol] 82 fL Normal 80-100 [facility] Comment on above: Performed By: #### 5 7021-8 #### OMERO KNIGHT ([id number]) [facility] ([facility]) [address] [place] [address] 42392 Monocytes (Bld) [#/Vol] 0.88 x10*3/uL High 0.05-0.80 [facility] Comment on above: Performed By: #### 5 7021-8 #### OMERO KNIGHT ([id number]) [facility] ([facility]) [address] [place] [address] 94145 Monocytes/100 WBC (Bld) 5.1 % Normal 2.0-10.0 [facility] Comment on above: Performed By: #### 5 7021-8 #### OMERO KNIGHT ([id number]) [facility] ([facility]) [address] [place] [address] 45381 Neutrophils (Bld) [#/Vol] 15.29 x10*3/uL High 1.60-5.50 [facility] Comment on above: Result Comment: Perc ent differential counts (%) should be interpreted in the context of the absolute cell counts (cells/uL). Performed By: #### 5 7021-8 #### OMERO KNIGHT ([id number]) [facility] ([facility]) [address] [place] [address] 60468 Neutrophils/100 WBC (Bld) 88.7 % Normal 40.0-80.0 [facility] Comment on above: Performed By: #### 5 7021-8 #### OMERO KNIGHT ([id number]) [facility] ([facility]) [address] [place] [address] 61845 Nucleated RBC/100 WBC (Bld) [Ratio] 0.0 /100 WBCs Normal 0.0-0.0 [facility] Comment on above: Performed By: #### 5 7021-8 #### OMERO KNIGHT ([id number]) [facility] ([facility]) [address] [place] [address] 86343 Platelets (Bld) [#/Vol] 251 x10*3/uL Normal 150-450 [facility] Comment on above: Performed By: #### 5 7021-8 #### OMERO KNIGHT ([id number]) [facility] ([facility]) [address] [place] [address] RBC (Bld) [#/Vol] 5.03 x10*6/uL Normal 4.00-5.20 [facility] Comment on above: Performed By: #### 5 7021-8 #### OMERO KNGIHT ([id number]) [facility] ([facility]) [address] [place], [place] [address] WBC (Bld) [#/Vol] 17.2 x10*3/uL High 4.4-11.3 [facility] Comment on above: Performed By: #### 5 7021-8 #### OMERO KNIGHT ([id number]) [facility] ([facility]) [address] [place] [address] CBC panel Auto (Bld)on 10-09 Erythrocyte distribution width (RBC) [Ratio] 13.9 % 11.5 - 14.5 % [facility] Hematocrit (Bld) [Volume fraction] 36.1 % 36.0 - 46.0 % [facility] Hemoglobin (Bld) [Mass/Vol] 11.8 g/dL Low 12.0 - 16.0 g/dL [facility] Interpretation and review of laboratory results Abnormal [facility] MCH (RBC) [Entitic mass] 26.9 pg 26.0 - 34.0 pg [facility] MCHC (RBC) [Mass/Vol] 32.7 g/dL 32.0 - 36.0 g/dL [facility] MCV (RBC) [Entitic vol] 82 fL 80 - 100 fL [facility] Nucleated RBC/100 WBC (Bld) [Ratio] 0.0 % [facility] Platelets (Bld) [#/Vol] 210 10*3/uL [facility] RBC (Bld) [#/Vol] 4.39 10*6/uL [facility] WBC (Bld) [#/Vol] 26.0 10*3/uL High [facility] Erythrocyte distribution width (RBC) [Ratio] 13.9 % Normal 11.5-14.5 [facility] Comment on above: Performed By: #### 2 341-6 #### OMERO KNIGHT ([id number]) [facility] ([facility]) [address] [place] [address] Hematocrit (Bld) [Volume fraction] 36.1 % Normal 36.0-46.0 [facility] Comment on above: Performed By: #### 2 341-6 #### OMERO KNIGHT ([id number]) [facility] ([facility]) [address] [place] [address] 47244 Hemoglobin (Bld) [Mass/Vol] 11.8 g/dL Low 12.0-16.0 [facility] Comment on above: Performed By: #### 2 341-6 #### OMERO KNIGHT ([id number]) [facility] ([facility]) [address] [place] [address] 81660 MCH (RBC) [Entitic mass] 26.9 pg Normal 26.0-34.0 [facility] Comment on above: Performed By: #### 2 341-6 #### OMERO KNIGHT ([id number]) [facility] ([facility]) [address] [place] [address] 74344 MCHC (RBC) [Mass/Vol] 32.7 g/dL Normal 32.0-36.0 [facility] Comment on above: Performed By: #### 2 341-6 #### OMERO KNIGHT ([id number]) [facility] ([facility]) [address] [place] [address] 55260 MCV (RBC) [Entitic vol] 82 fL Normal 80-100 [facility] Comment on above: Performed By: #### 2 341-6 #### OMERO KNIGHT ([id number]) [facility] ([facility]) [address] [place] [address] 44217 Nucleated RBC/100 WBC (Bld) [Ratio] 0.0 /100 WBCs Normal 0.0-0.0 [facility] Comment on above: Performed By: #### 2 341-6 #### OMERO KNIGHT ([id number]) [facility] ([facility]) [address] [place] [address] 10061 Platelets (Bld) [#/Vol] 210 x10*3/uL Normal 150-450 [facility] Comment on above: Performed By: #### 2 341-6 #### OMERO KNIGHT ([id number]) [facility] ([facility]) [address] [place] [address] RBC (Bld) [#/Vol] 4.39 x10*6/uL Normal 4.00-5.20 [facility] Comment on above: Performed By: #### 2 341-6 #### OMERO KNIGHT ([id number]) [facility] ([facility]) [address] [place] [address] 19269 WBC (Bld) [#/Vol] 26.0 x10*3/uL High 4.4-11.3 [facility] Comment on above: Performed By: #### 2 341-6 #### OMERO KNIGHT ([id number]) [facility] ([facility]) [address] [place] [address] CT ABDOMEN PELVIS WO IV CONT [facility] 10-10-2023 CT ABDOMEN PELVIS WO IV CONTRAST Interpreted By: Vlad Araya, STUDY: CT ABDOMEN PELVIS WO IV CONTRAST; 10/10/2023 2:45 am INDICATION: Signs/Symptoms:back pain w/o injury. COMPARISON: CT scan of the abdomen 01/05/2020 ACCESSION NUMBER(S): [id number] ORDERING CLINICIAN: FLAVIO MILES TECHNIQUE: Axial noncontrast [...] Normal caliber. GALLBLADDER: Status post cholecystectomy. PANCREAS: Ttnx-cg-rlwhpxdj fatty atrophy of the pancreas. SPLEEN: Splenomegaly [...] Vlad Araya 10/10/2023 3:17 AM Dictation workstation: [id number] [facility] CT Abdomen WO contraston Several nonobstructi ng [...] Vlad Araya 10/10/2023 3:17 AM Dictation workstation: [id number] [facility] Interpreted By: Vlad Schneider, STUDY: CT ABDOMEN PELVIS WO IV CONTRAST; 10/10/2023 2:45 am INDICATION: Signs/Symptoms:back pain w/o injury. COMPARISON: CT scan of the abdomen 01/05/2020 ACCESSION NUMBER(S): [id number] ORDERING CLINICIAN: FLAVIO MILES TECHNIQUE: Axial noncontrast [...] Normal caliber. GALLBLADDER: Status post cholecystectomy. PANCREAS: Gyal-wd-xgpwcoob fatty atrophy of the pancreas. SPLEEN: Splenomegaly [...] - 10/10/2023 Interpreted By: Vlad Araya, STUDY: CT ABDOMEN PELVIS WO IV CONTRAST; 10/10/2023 2:45 am INDICATION: Signs/Symptoms:back pain w/o injury. COMPARISON: CT scan of the abdomen 01/05/2020 ACCESSION NUMBER(S): [id number] ORDERING CLINICIAN: FLAVIO MILES TECHNIQUE: Axial noncontrast [...] Normal caliber. GALLBLADDER: Status post cholecystectomy. PANCREAS: Zrau-bc-zazqbbue fatty atrophy of the pancreas. SPLEEN: Splenomegaly [...] Vlad Araya 10/10/2023 3:17 AM Dictation workstation: [id number] [facility] Work Phone: [facility] Work Phone: Radiology Study observation (narrative) [facility] Work Phone: ECG 12-LEADon 10-10-2023 ECG 12-LEAD Ventricular Rate 112 QRS Duration 106 Q-T Interval 338 QTC Calculation(Bazett) 461 R [place] -62 T [place] 104 QRS Count 19 Q Onset 208 T Offset 377 QTC Fredericia 416 Diagnosis Atrial fibrillation with rapid ventricular response with premature ventricular or aberrantly conducted complexes Left anterior fascicular block Possible Anterior infarct , age undetermined ST & T wave abnormality, consider lateral ischemia Abnormal ECG See ED provider note for full interpretation and clinical correlation Confirmed by Sophie Florian ([id number]) on 10/18/2023 8:16:18 PM Normal [facility] Glucose Test strip manual (B ld) [Mass/Vol]on 10-10-2023 Glucose [Mass/Vol] 178 mg/dL High 74 - 99 mg/dL [facility] Interpretation and review of laboratory results Abnormal [facility] Glucose [Mass/Vol] 178 mg/dL High 74-99 [facility] Comment on above: Performed By: #### 2 341-6 #### JAMIL EUGENE ([id number]) [facility] ([facility]) [address] [place] [address] Glucose [Mass/Vol] 209 mg/dL High 74 - 99 mg/dL [facility] Interpretation and review of laboratory results Abnormal [facility] Glucose [Mass/Vol] 209 mg/dL High 74-99 [facility] Comment on above: Performed By: #### 2 341-6 #### MOERO KNIGHT ([id number]) [facility] ([facility]) [address] [place] [address] Glucose [Mass/Vol] 187 mg/dL High 74 - 99 mg/dL [facility] Interpretation and review of laboratory results Abnormal [facility] Glucose [Mass/Vol] 187 mg/dL High 74-99 [facility] Comment on above: Performed By: #### 2 341-6 #### OMERO KNIGHT ([id number]) [facility] ([facility]) [address] [place] [address] 73252 Glucose [Mass/Vol] 215 mg/dL High 74 - 99 mg/dL [facility] Interpretation and review of laboratory results Abnormal [facility] Glucose [Mass/Vol] 215 mg/dL High 74-99 [facility] Comment on above: Performed By: #### 2 341-6 #### OMERO KNIGHT ([id number]) [facility] ([facility]) [address] [place] [address] 19350 Glucose [Mass/Vol] 174 mg/dL High 74 - 99 mg/dL [facility] Comment on above: RN/ NOTIFIED Interpretation and review of laboratory results Abnormal [facility] Glucose [Mass/Vol] 174 mg/dL High 74-99 [facility] Comment on above: Result Comment: UZMA/Shaheen Licea NOTIFIED Performed By: #### 2 341-6 #### OMERO KNIGHT ([id number]) [facility] ([facility]) [address] [place] [address] 27562 Lavender Topon 10-10-2023 Extra Tube Hold for add-ons. [facility] Comment on above: Auto resulted. [facility] Natriuretic peptide B [Mass/ Vol]on 10-10-2023 Interpretation and review of laboratory results Abnormal [facility] Natriuretic peptide B (Bld) [Mass/Vol] 225 pg/mL High 0 - 99 pg/mL [facility] <100 pg/mL - Heart failure unlikely 100-299 pg/mL - Intermediate probability of acute heart failure exacerbation. Correlate with clinical context and patient history. >=300 pg/mL - Heart Failure likely. Correlate with clinical context and patient history. BNP testing is performed using different testing methodology at [facility] than at other [facility]. Direct result comparisons should only be made within the same method. [facility] Natriuretic peptide B (Bld) [Mass/Vol] 225 pg/mL High 0-99 [facility] Comment on above: Order Comment: <100 pg/mL - Heart failure unlikely 100-299 pg/mL - Intermediate probability of acute heart failure exacerbation. Correlate with clinical context and patient history. >=300 pg/mL - Heart Failure likely. Correlate with clinical context and patient history. BNP testing is performed using different testing methodology at [facility] than at other [facility]. Direct result comparisons should only be made within the same method. Performed By: #### 3 0934-4 #### JAMIL EUGENE ([id number]) [facility] ([facility]) [address] [place] [address] Tropinin I.cardiac panel Hig h sensitivity methodon 10-10-2023 Interpretation and review of laboratory results Normal [facility] Less than 99th percentile of normal [...] performed using a different testing methodology at [facility] than at other [facility]. Direct result comparisons should only be made within the same method. [facility] Interpretation and review of laboratory results Normal [facility] Less than 99th percentile of normal [...] performed using a different testing methodology at [facility] than at [facility]. Direct result comparisons should only be made within the same method. [facility] Troponin I, High Sensitivity , Initialon 10-10-2023 Tropinin I.cardiac panel High sensitivity method 12 ng/L 0 - 13 ng/L [facility] Troponin I.cardiac panelon 0 10-10-2023 Tropinin I.cardiac panel High sensitivity method 12 ng/L Normal 0-13 [facility] Comment on above: Order Comment: Less [...] performed using a different testing methodology at [facility] than at [facility]. Direct result comparisons should only be made within the same method. Performed By: #### 8 9577-1 #### JAMIL EUGENE ([id number]) [facility] ([facility]) [address] [place] [address] Tropinin I.cardiac panel High sensitivity method 12 ng/L Normal 0-13 [facility] Comment on above: Order Comment: Less [...] performed using a different testing methodology at [facility] than at other [facility]. Direct result comparisons should only be made within the same method. Performed By: #### 8 9577-1 #### JAMIL EUGENE ([id number]) [facility] ([facility]) [address] [place] [address] Troponin, High Sensitivity, 1 Houron 10-10-2023 Tropinin I.cardiac panel High sensitivity method 12 ng/L 0 - 13 ng/L [facility] Urinalysis complete W Reflex Culture panel (U)Ordered By: Diana Barros on 10-10-2023 Appearance (U) Turbid Abnormal Clear [facility] Bilirubin (U) [Mass/Vol] Negative NEGATIVE [facility] Color (U) Yellow Light-Yellow , Yellow, Dark-Yellow [facility] Glucose Auto test strip (U) [Mass/Vol] Normal Normal mg/dL [facility] Interpretation and review of laboratory results Abnormal [facility] Ketones (U) [Mass/Vol] 10 (1+) Abnormal NEGAT JORGE mg/dL [facility] Leukocyte esterase Auto test strip Ql (U) 500 Ray/ L Abnormal NEGATIVE [facility] Nitrite Auto test strip Ql (U) 2+ Abnormal NEGATIVE [facility] pH (U) 8.0 [pH] 5.0, 5.5, 6.0, 6.5, 7.0, 7.5, 8.0 [facility] Protein (U) [Mass/Vol] 70 (1+) Abnormal NEGAT JORGE, 10 (TRACE), 20 (TRACE) mg/dL [facility] RBC (U) [#/Vol] 0.1 (1+) Abnormal NEGATIVE [facility] Specific gravity (U) [Rel density] 1.027 1.005 - 1.035 [facility] Urobilinogen (U) [Mass/Vol] 3 (1+) Abnormal Normal mg/dL [facility] Comment on above: Some pigments and me dications may cause a false positive urobilinogen. [facility] Urinalysis complete W Reflex Culture panel (U)on 10-10-2023 Appearance (U) Turbid Normal Clear [facility] Comment on above: Performed By: #### 5 8077-9 #### OMERO KNIGHT ([id number]) [facility] ([facility]) [address] [place] [address] Bilirubin (U) [Mass/Vol] Negative Normal NEGATIVE [facility] Comment on above: Performed By: #### 5 8077-9 #### OMERO KNIGHT ([id number]) [facility] ([facility]) [address] [place] [address] Color (U) Yellow Normal Light-Yellow , Yellow, Dark-Yellow [facility] Comment on above: Performed By: #### 5 8077-9 #### OMERO KNIGHT ([id number]) [facility] ([facility]) [address] [place], [place] [address] Glucose Auto test strip (U) [Mass/Vol] Normal Normal Normal [facility] Comment on above: Performed By: #### 5 8077-9 #### OMERO KNIGHT ([id number]) [facility] ([facility]) [address] [place] [address] 14572 Ketones (U) [Mass/Vol] 10 (1+) Abnormal NEGATIVE [facility] Comment on above: Performed By: #### 5 8077-9 #### OMERO KNIGHT ([id number]) [facility] ([facility]) [address] [place] [address] 68778 Leukocyte esterase Auto test strip Ql (U) 500 Ray/???L Abnormal NEGATIVE [facility] Comment on above: Performed By: #### 5 8077-9 #### OMERO KNIGHT ([id number]) [facility] ([facility]) [address] [place] [address] Nitrite Auto test strip Ql (U) 2+ Abnormal NEGATIVE [facility] Comment on above: Performed By: #### 5 8077-9 #### OMERO KNIGHT ([id number]) [facility] ([facility]) [address] [place] [address] pH (U) 8.0 [pH] Normal 5.0, 5.5, 6.0, 6.5, 7.0, 7.5, 8.0 [facility] Comment on above: Performed By: #### 5 8077-9 #### OMERO KNIGHT ([id number]) [facility] ([facility]) [address] [place] [address] Protein (U) [Mass/Vol] 70 (1+) Abnormal NEGAT JORGE, 10 (TRACE), 20 (TRACE) [facility] Comment on above: Performed By: #### 5 8077-9 #### OMERO KNIGHT ([id number]) [facility] ([facility]) [address] [place] [address] RBC (U) [#/Vol] 0.1 (1+) Abnormal NEGATIVE [facility] Comment on above: Performed By: #### 5 8077-9 #### OMERO KNIGHT ([id number]) [facility] ([facility]) [address] [place] [address] Specific gravity (U) [Rel density] 1.027 Normal 1.005-1.035 [facility] Comment on above: Performed By: #### 5 8077-9 #### OMERO KNIGHT ([id number]) [facility] ([facility]) [address] [place] [address] Urobilinogen (U) [Mass/Vol] 3 (1+) Abnormal Normal [facility] Comment on above: Result Comment: Some pigments and medications may cause a false positive urobilinogen. Performed By: #### 5 8077-9 #### OMERO KNIGHT ([id number]) [facility] ([facility]) [address] [place] [address] Urinalysis microscopic panel Auto Ql (U)on 10-10-2023 Bacteria Auto (Urine sed) [#/Area] 1+ Abnormal NONE SEEN /HPF [facility] Crystals.amorphous Computer assisted (U) [#/Area] 1+ NONE, 1+, 2+ /HPF [facility] Epithelial cells.squamous Auto (Urine sed) [#/Area] 1-9 (SPARSE) Reference range not established. /HPF [facility] Interpretation and review of laboratory results Abnormal [facility] Mucus Auto (Urine sed) [#/Area] FEW Reference range not established. /LPF [facility] RBC Auto (Urine sed) [#/Area] 3-5 NONE, 1-2, 3-5 /HPF [facility] WBC Auto (Urine sed) [#/Area] 21-50 Abnormal 1-5, NONE /HPF [facility] Bacteria Auto (Urine sed) [#/Area] 1+ /HPF Abnormal NONE SEEN [facility] Comment on above: Performed By: #### 2 341-6 #### OMERO KNIGHT ([id number]) [facility] ([facility]) [address] [place] [address] Crystals.amorphous Computer assisted (U) [#/Area] 1+ /HPF Normal NONE, 1+, 2+ [facility] Comment on above: Performed By: #### 2 341-6 #### OMERO KNIGHT ([id number]) [facility] ([facility]) [address] [place] [address] Epithelial cells.squamous Auto (Urine sed) [#/Area] 1-9 (SPARSE) Normal Reference range not established. [facility] Comment on above: Performed By: #### 2 341-6 #### OMERO KNIGHT ([id number]) [facility] ([facility]) [address] [place] [address] Mucus Auto (Urine sed) [#/Area] FEW Normal Reference range not established. [facility] Comment on above: Performed By: #### 2 341-6 #### OMERO KNIGHT ([id number]) [facility] ([facility]) [facility] [place] [address] RBC Auto (Urine sed) [#/Area] 3-5 Normal NONE, 1-2, 3-5 [facility] Comment on above: Performed By: #### 2 341-6 #### OMERO KNIGHT ([id number]) [facility] ([facility]) [address] [place] [address] 08526 WBC Auto (Urine sed) [#/Area] 21-50 Abnormal 1-5, NONE [facility] Comment on above: Performed By: #### 2 341-6 #### OMERO KNIGHT ([id number]) [facility] ([facility]) [address] [place] [address] XR CHEST 1 VIEWon 10-10-2023 XR CHEST 1 VIEW Interpreted By: Vlad Schneider, STUDY: XR CHEST 1 VIEW; 10/10/2023 2:03 am INDICATION: Signs/Symptoms:weakness. COMPARISON: Chest x-ray 09/08/2022 ACCESSION NUMBER(S): [id number] ORDERING CLINICIAN: FLAVIO MILES FINDINGS: Multiple overlying leads are present. CARDIOMEDIASTINAL SILHOUETTE: Cardiomediastinal silhouette is stable in size and configuration. LUNGS: No consolidation, pleural effusion or pneumothorax. ABDOMEN: No remarkable upper abdominal findings. BONES: Multilevel degenerative changes of the spine. Bilateral shoulder osteoarthrosis. IMPRESSION: No acute cardiopulmonary process. MACRO: None Signed by: Vlad Araya 10/10/2023 2:11 AM Dictation workstation: [id number] Normal [facility] XR Chest Single viewon 10-09 No acute cardiopulmo nary process. MACRO: None Signed by: Vlad Araya 10/10/2023 2:11 AM Dictation workstation: [id number] Interpreted By: Vlad Schneider, STUDY: XR CHEST 1 VIEW; 10/10/2023 2:03 am INDICATION: Signs/Symptoms:weakness. COMPARISON: Chest x-ray 09/08/2022 ACCESSION NUMBER(S): [id number] ORDERING CLINICIAN: FLAVIO MILES FINDINGS: Multiple overlying [...] Signs/Symptoms:weakness. COMPARISON: Chest x-ray 09/08/2022 ACCESSION NUMBER(S): [id number] ORDERING CLINICIAN: FLAVIO MILES FINDINGS: Multiple overlying leads are present. CARDIOMEDIASTINAL SILHOUETTE: Cardiomediastinal silhouette is stable in size and configuration. LUNGS: No consolidation, pleural effusion or pneumothorax. ABDOMEN: No remarkable upper abdominal findings. BONES: Multilevel degenerative changes of the spine. Bilateral shoulder osteoarthrosis. IMPRESSION: No acute cardiopulmonary process. MACRO: None Signed by: Vlad Araya 10/10/2023 2:11 AM Dictation workstation: [id number] [facility] Work Phone: Radiology Study observation (narrative) [facility] Work Phone: XR Chest Single viewOrdered By: Vlad Araya on 10-10-2023 [facility] Work Phone: ALKALINE PHOSPHATASE, ISOENZ YMESon 08-03-2023 ALP [Catalytic activity/Vol] 132 U/L High 40-120 [facility] Comment on above: Performed By: #### 1 9123-9 #### OMERO KNIGHT ([id number]) [facility] ([facility]) [address] [place] [address] 07197 ALP Bone [Catalytic activity/Vol] 42 U/L Normal 0-55 [facility] Comment on above: Performed By: #### 1 9123-9 #### OMERO KNIGHT (10119) [facility] ([facility]) [address] [place] [address] ALP Liver [Catalytic activity/Vol] 90 U/L Normal 0-94 [facility] Comment on above: Result Comment: INTE RPRETIVE INFORMATION: Alk-Phosphatase Liver Calc Bone Specific Alkaline Phosphatase (4181892) and 5'-nucleotidase (8345780) may be useful in identifying disorders of bone and liver, respectively. Performed By: #### 1 9123-9 #### OMERO KNIGHT (10611) [facility] ([facility]) [address] [place] [address] 83128 ALP Other [Catalytic activity/Vol] 0 U/L Normal [facility] Comment on above: Result Comment: Perf ormed By: [facility] [address] [place] [address] 34943 Jacker: Shayan Licona MD, PhD CLIA Number: [id number] Performed By: #### 1 9123-9 #### OMERO KNIGHT (85805) [facility] ([facility]) [address] [place] [address] 71901 Gamma glutamyl transferaseon 08-03-2023 Gamma glutamyl transferase [Catalytic activity/Vol] 26 U/L Normal 5-55 [facility] Comment on above: Performed By: #### 1 9123-9 #### OMERO KNIGHT (22756) [facility] ([facility]) [address] [place] [address] 75794 Hepatic function 2000 panelo n 08-03-2023 Albumin BCP dye [Mass/Vol] 4.1 g/dL Normal 3.4-5.0 [facility] Comment on above: Performed By: #### 1 9123-9 #### OMERO KNIGHT ([id number]) [facility] ([facility]) [facility] [place] [address] ALP [Catalytic activity/Vol] 113 U/L Normal 33-136 [facility] Comment on above: Performed By: #### 1 9123-9 #### OMERO KNIGHT (23178) [facility] ([facility]) [address] [place] [address] 51630 ALT With P-5'-P [Catalytic activity/Vol] 12 U/L Normal 7-45 [facility] Comment on above: Result Comment: Madhavi ents treated with Sulfasalazine may generate falsely decreased results for ALT. Performed By: #### 1 9123-9 #### OMERO KNIGHT (77141) [facility] ([facility]) [address] [place] [address] 23651 AST With P-5'-P [Catalytic activity/Vol] 19 U/L Normal 9-39 [facility] Comment on above: Performed By: #### 1 9123-9 #### OMERO KNIGHT (54227) [facility] ([facility]) [address] [place] [address] 42058 Bilirubin [Mass/Vol] 0.5 mg/dL Normal 0.0-1.2 [facility] Comment on above: Performed By: #### 1 9123-9 #### OMERO KNIGHT (25244) [facility] ([facility]) [address] [place] [address] Bilirubin.direct [Mass/Vol] 0.1 mg/dL Normal 0.0-0.3 [facility] Comment on above: Performed By: #### 1 9123-9 #### OMERO KNIGHT (39952) [facility] ([facility]) [address] [place] [address] Protein [Mass/Vol] 7.1 g/dL Normal 6.4-8.2 [facility] Comment on above: Performed By: #### 1 9123-9 #### OMERO KNIGHT (30273) [facility] ([facility]) [address] [place], [place] [address] XR FOOT RIGHT 3+ VIEWSon XR FOOT RIGHT 3+ VIEWS Interpreted By: Conner Burk, STUDY: XR FOOT RIGHT 3+ VIEWS; ; 06/10/2023 6:08 pm INDICATION: Signs/Symptoms:TRAUMA. COMPARISON: None. ACCESSION NUMBER(S): [id number] ORDERING CLINICIAN: FLAVIO MILES FINDINGS: Three radiographs [...] Conner Burk 06/10/2023 6:36 PM Dictation workstation: [id number] [facility] XR Foot - right 3 Viewson 1. Marked soft tissu e swelling from likely hematoma overlies the dorsum of the foot, along the metatarsals, without evidence of displaced fracture, traumatic malalignment, or radiopaque foreign body. 2. Degenerative changes of the right foot with joint space narrowing and osteophytosis. MACRO: None Signed by: Conner Burk 06/10/2023 6:36 PM Dictation workstation: [id number] Interpreted By: Conner Burk, STUDY: XR FOOT RIGHT 3+ VIEWS; ; 06/10/2023 6:08 pm INDICATION: Signs/Symptoms:TRAUMA. COMPARISON: None. ACCESSION NUMBER(S): [id number] ORDERING CLINICIAN: FLAVIO MILES FINDINGS: Three radiographs [...] pm INDICATION: Signs/Symptoms:TRAUMA. COMPARISON: None. ACCESSION NUMBER(S): [id number] ORDERING CLINICIAN: FLAVIO MILES FINDINGS: Three radiographs [...] Conner Burk 06/10/2023 6:36 PM Dictation workstation: [id number] [facility] Work Phone: Radiology Study observation (narrative) [facility] Work Phone: XR Foot - right 3 ViewsOrder ed By: Conner Burk on 06-10-2023 [facility] Work Phone: ALKALINE PHOSPHATASE, ISOENZ YMESon 05-21-2023 ALP [Catalytic activity/Vol] 158 U/L High 40-120 [facility] Comment on above: Performed By: #### 1 9123-9 #### OMERO KNIGHT ([id number]) [facility] ([facility]) [address] [place] [address] 45569 ALP Bone [Catalytic activity/Vol] 60 U/L High 0-55 [facility] Comment on above: Performed By: #### 1 9123-9 #### OMERO KNIGHT (30487) [facility] ([facility]) [facility] [place] [address] ALP Liver [Catalytic activity/Vol] 98 U/L High 0-94 [facility] Comment on above: Result Comment: INTE RPRETIVE INFORMATION: Alk-Phosphatase Liver Calc Bone Specific Alkaline Phosphatase (3000104) and 5'-nucleotidase (6132060) may be useful in identifying disorders of bone and liver, respectively. Performed By: #### 1 9123-9 #### OMERO KNIGHT (10179) [facility] ([facility]) [address] [place] [address] 64934 ALP Other [Catalytic activity/Vol] 0 U/L Normal [facility] Comment on above: Result Comment: Perf ormed By: wmbly [address] [place] [address] 89687 Jacker: Shayan Licona MD, PhD CLIA Number: [id number] Performed By: #### 1 9123-9 #### OMERO KNIGHT (85832) [facility] ([facility]) [address] [place] [address] CBC panel Auto (Bld)on 05-21 Erythrocyte distribution width (RBC) [Ratio] 20.9 % High 11.5-14.5 [facility] Comment on above: Performed By: #### 5 8410-2 #### OMERO KNIGHT (25630) [facility] ([facility]) [address] [place] [address] Hematocrit (Bld) [Volume fraction] 36.6 % Normal 36.0-46.0 [facility] Comment on above: Performed By: #### 5 8410-2 #### OMERO KNIGHT (63846) [facility] ([facility]) [address] [place], [place] [address] Hemoglobin (Bld) [Mass/Vol] 11.0 g/dL Low 12.0-16.0 [facility] Comment on above: Performed By: #### 5 8410-2 #### OMERO KNIGHT (40207) [facility] ([facility]) [address] [place] [address] 25557 MCH (RBC) [Entitic mass] 24.9 pg Low 26.0-34.0 [facility] Comment on above: Performed By: #### 5 8410-2 #### OMERO KNIGHT (74515) [facility] ([facility]) [address] [place] [address] 12027 MCHC (RBC) [Mass/Vol] 30.1 g/dL Low 32.0-36.0 [facility] Comment on above: Performed By: #### 5 8410-2 #### OMERO KNIGHT (87364) [facility] ([facility]) [address] [place] [address] 02567 MCV (RBC) [Entitic vol] 83 fL Normal 80-100 [facility] Comment on above: Performed By: #### 5 8410-2 #### OMERO KNIGHT (99397) [facility] ([facility]) [address] [place] [address] 42860 Nucleated RBC/100 WBC (Bld) [Ratio] 0.0 /100 WBCs Normal 0.0-0.0 [facility] Comment on above: Performed By: #### 5 8410-2 #### OMERO KNIGHT (52387) [facility] ([facility]) [address] [place] [address] 02716 Platelets (Bld) [#/Vol] 261 x10*3/uL Normal 150-450 [facility] Comment on above: Performed By: #### 5 8410-2 #### OMERO KNIGHT (71930) [facility] ([facility]) [address] [place] [address] 57262 RBC (Bld) [#/Vol] 4.41 x10*6/uL Normal 4.00-5.20 [facility] Comment on above: Performed By: #### 5 8410-2 #### OMERO KNIGHT (36936) [facility] ([facility]) [address] [place] [address] 85639 WBC (Bld) [#/Vol] 10.2 x10*3/uL Normal 4.4-11.3 [facility] Comment on above: Performed By: #### 5 8410-2 #### OMERO KNIGHT (19773) [facility] ([facility]) [address] [place] [address] 19950 Calcidiolon 05-21-2023 25-hydroxyvitamin D3 [Mass/Vol] 21 ng/mL Low 30-100 [facility] Comment on above: Order Comment: Defic iency: < 20 ng/mlInsufficiency: 20-29 ng/mlSufficiency: 30-100 ng/mlThis assay accurately quantifies the sum of Vitamin D3, 25-Hydroxy and Vitamin D2,25-Hydroxy. Performed By: #### 1 9123-9 #### OMERO KNIGHT (38298) [facility] ([facility]) [address] [place] [address] 59413 Comprehensive metabolic 2000 panelon 05-21-2023 Albumin BCP dye [Mass/Vol] 3.6 g/dL Normal 3.4-5.0 [facility] Comment on above: Performed By: #### 2 4323-8 #### OMERO KNIGHT (43587) [facility] ([facility]) [address] [place] [address] 72230 ALP [Catalytic activity/Vol] 140 U/L High 33-136 [facility] Comment on above: Performed By: #### 2 4323-8 #### OMERO KNIGHT (87740) [facility] ([facility]) [address] [place] [address] 25800 ALT With P-5'-P [Catalytic activity/Vol] 8 U/L Normal 7-45 [facility] Comment on above: Result Comment: Madhavi ents treated with Sulfasalazine may generate falsely decreased results for ALT. Performed By: #### 2 4323-8 #### OMERO KNIGHT (87984) [facility] ([facility]) [address] [place] [address] 00168 Anion gap [Moles/Vol] 12 mmol/L Normal 10-20 [facility] Comment on above: Performed By: #### 2 4323-8 #### OMERO KNIGHT (94980) [facility] ([facility]) [address] [place] [address] 57697 AST With P-5'-P [Catalytic activity/Vol] 16 U/L Normal 9-39 [facility] Comment on above: Performed By: #### 2 4323-8 #### OMERO KNIGHT (07288) [facility] ([facility]) [address] [place] [address] 00038 Bilirubin [Mass/Vol] 0.3 mg/dL Normal 0.0-1.2 [facility] Comment on above: Performed By: #### 2 4323-8 #### OMERO KNIGHT (57692) [facility] ([facility]) [facility] [place] [address] Calcium [Mass/Vol] 9.2 mg/dL Normal 8.6-10.3 [facility] Comment on above: Performed By: #### 2 4323-8 #### OMERO KNIGHT (03869) [facility] ([facility]) [address] [place] [address] 73522 Chloride [Moles/Vol] 100 mmol/L Normal 98-107 [facility] Comment on above: Performed By: #### 2 432-8 #### OMERO KNIGHT (60170) [facility] ([facility]) [address] [place] [address] 35675 CO2 [Moles/Vol] 30 mmol/L Normal 21-32 [facility] Comment on above: Performed By: #### 2 432-8 #### OMERO KNIGHT (31350) [facility] ([facility]) [address] [place] [address] 23448 Creatinine [Mass/Vol] 1.00 mg/dL Normal 0.50-1.05 [facility] Comment on above: Performed By: #### 2 4323-8 #### OMERO KNIGHT (67433) [facility] ([facility]) [address] [place] [address] 03496 Glomerular filtration rate/1.73 sq M.predicted 59 mL/min/1.73m*2 Low >60 [facility] Comment on above: Result Comment: Calc ulations of estimated GFR are performed using the 2020 CKD-EPI Study Refit equation without the race variable for the IDMS-Traceable creatinine methods. https://jasn.asnjournals.org/content/early/ASN.52702 79914 Performed By: #### 2 4323-8 #### OMERO KNIGHT (62491) [facility] ([facility]) [address] [place] [address] 51480 Glucose [Mass/Vol] 119 mg/dL High 74-99 [facility] Comment on above: Performed By: #### 2 4323-8 #### OMERO KNIGHT (32799) [facility] ([facility]) [address] [place] [address] 71516 Potassium [Moles/Vol] 4.4 mmol/L Normal 3.5-5.3 [facility] Comment on above: Performed By: #### 2 4323-8 #### OMERO KNIGHT (92337) [facility] ([facility]) [address] [place] [address] 98289 Protein [Mass/Vol] 6.4 g/dL Normal 6.4-8.2 [facility] Comment on above: Performed By: #### 2 4323-8 #### OMERO KNIGHT (90084) [facility] ([facility]) [address] [place] [address] 82493 Sodium [Moles/Vol] 138 mmol/L Normal 136-145 [facility] Comment on above: Performed By: #### 2 4323-8 #### OMERO KNIGHT (40712) [facility] ([facility]) [address] [place] [address] 51218 Urea nitrogen [Mass/Vol] 15 mg/dL Normal 6-23 [facility] Comment on above: Performed By: #### 2 4323-8 #### OMERO KNIGHT (19246) [facility] ([facility]) [address] [place] [address] 80652 Ferritinon 05-21-2023 Ferritin [Mass/Vol] 34 ng/mL Normal 8-150 [facility] Comment on above: Performed By: #### 2 276-4 #### OMERO KNIGHT (38700) [facility] ([facility]) [address] [place] [address] 38148 Iron and Iron binding capaci ty panelon 05-21-2023 Iron [Mass/Vol] 97 ug/dL Normal 35-150 [facility] Comment on above: Performed By: #### 5 0190-8 #### OMERO KNIGHT (50333) [facility] ([facility]) [address] [place] [address] 55861 Iron binding capacity [Mass/Vol] 346 ug/dL Normal 240-445 [facility] Comment on above: Performed By: #### 5 0190-8 #### OMERO KNIGHT (25707) [facility] ([facility]) [address] [place] [address] 53807 Iron binding capacity.unsaturated [Mass/Vol] 249 ug/dL Normal 110-370 [facility] Comment on above: Performed By: #### 5 0190-8 #### OMERO KNIGHT (28359) [facility] ([facility]) [address] [place] [address] 39036 Iron saturation [Mass fraction] 28 % Normal 25-45 [facility] Comment on above: Performed By: #### 5 0190-8 #### OMERO KNIGHT (05612) [facility] ([facility]) [address] [place], [place] [address] CBC panel Auto (Bld)on 03-06 Erythrocyte distribution width (RBC) [Ratio] 15.1 % High 11.5-14.5 [facility] Comment on above: Performed By: #### 5 8410-2 #### OMERO KNIGHT (56534) [facility] ([facility]) [address] [place], [place] [address] Hematocrit (Bld) [Volume fraction] 32.6 % Low 36.0-46.0 [facility] Comment on above: Performed By: #### 5 8410-2 #### OMERO KNIGHT (35131) [facility] ([facility]) [address] [place] [address] 57722 Hemoglobin (Bld) [Mass/Vol] 9.3 g/dL Low 12.0-16.0 [facility] Comment on above: Performed By: #### 5 8410-2 #### OMERO KNIGHT (07579) [facility] ([facility]) [address] [place] [address] 02484 MCH (RBC) [Entitic mass] 22.0 pg Low 26.0-34.0 [facility] Comment on above: Performed By: #### 5 8410-2 #### OMERO KNIGHT (47008) [facility] ([facility]) [address] [place] [address] 63160 MCHC (RBC) [Mass/Vol] 28.5 g/dL Low 32.0-36.0 [facility] Comment on above: Performed By: #### 5 8410-2 #### OMERO KNIGHT (68469) [facility] ([facility]) [address] [place] [address] 44544 MCV (RBC) [Entitic vol] 77 fL Low 80-100 [facility] Comment on above: Performed By: #### 5 8410-2 #### OMERO KNIGHT (91435) [facility] ([facility]) [address] [place] [address] 29355 Nucleated RBC/100 WBC (Bld) [Ratio] 0.0 /100 WBCs Normal 0.0-0.0 [facility] Comment on above: Performed By: #### 5 8410-2 #### OMERO KNIGHT (76793) [facility] ([facility]) [address] [place] [address] 04445 Platelets (Bld) [#/Vol] 310 x10*3/uL Normal 150-450 [facility] Comment on above: Performed By: #### 5 8410-2 #### OMERO KNIGHT (21254) [facility] ([facility]) [address] [place] [address] 41002 RBC (Bld) [#/Vol] 4.22 x10*6/uL Normal 4.00-5.20 [facility] Comment on above: Performed By: #### 5 8410-2 #### OMERO KNIGHT (20982) [facility] ([facility]) [address] [place] [address] 76469 WBC (Bld) [#/Vol] 12.2 x10*3/uL High 4.4-11.3 [facility] Comment on above: Performed By: #### 5 8410-2 #### OMERO KNIGHT (03397) [facility] ([facility]) [address] [place], [place] [address] Cobalaminson 03-06-2023 Cobalamin (Vitamin B12) [Mass/Vol] 352 pg/mL Normal 211-911 [facility] Comment on above: Performed By: #### 2 132-9 #### OMERO KNIGHT (52666) [facility] ([facility]) [address] [place] [address] Comprehensive metabolic 2000 panelon 03-06-2023 Albumin BCP dye [Mass/Vol] 3.8 g/dL Normal 3.4-5.0 [facility] Comment on above: Performed By: #### 2 4323-8 #### OMERO KNIGHT (55717) [facility] ([facility]) [address] [place] [address] 68200 ALP [Catalytic activity/Vol] 141 U/L High 33-136 [facility] Comment on above: Performed By: #### 2 4323-8 #### OMERO KNIGHT (41003) [facility] ([facility]) [address] [place] [address] 50366 ALT With P-5'-P [Catalytic activity/Vol] 9 U/L Normal 7-45 [facility] Comment on above: Result Comment: Madhavi ents treated with Sulfasalazine may generate falsely decreased results for ALT. Performed By: #### 2 4323-8 #### OMERO KNIGHT (98090) [facility] ([facility]) [address] [place] [address] Anion gap [Moles/Vol] 12 mmol/L Normal 10-20 [facility] Comment on above: Performed By: #### 2 4323-8 #### OMERO KNIGHT (83422) [facility] ([facility]) [facility] [place] [address] AST With P-5'-P [Catalytic activity/Vol] 16 U/L Normal 9-39 [facility] Comment on above: Performed By: #### 2 4323-8 #### OMERO KNIGHT (34711) [facility] ([facility]) [address] [place] [address] 38590 Bilirubin [Mass/Vol] 0.3 mg/dL Normal 0.0-1.2 [facility] Comment on above: Performed By: #### 2 4323-8 #### OMERO KNIGHT (46466) [facility] ([facility]) [address] [place] [address] 67562 Calcium [Mass/Vol] 9.1 mg/dL Normal 8.6-10.3 [facility] Comment on above: Performed By: #### 2 4323-8 #### OMERO KNIGHT (52351) [facility] ([facility]) [address] [place] [address] 58169 Chloride [Moles/Vol] 103 mmol/L Normal 98-107 [facility] Comment on above: Performed By: #### 2 4323-8 #### OMERO KNIGHT (32575) [facility] ([facility]) [address] [place] [address] 09705 CO2 [Moles/Vol] 28 mmol/L Normal 21-32 [facility] Comment on above: Performed By: #### 2 4323-8 #### OMERO KNIGHT (15746) [facility] ([facility]) [address] [place] [address] 74619 Creatinine [Mass/Vol] 0.83 mg/dL Normal 0.50-1.05 [facility] Comment on above: Performed By: #### 2 4323-8 #### OMERO KNIGHT (53342) [facility] ([facility]) [address] [place] [address] 09702 GFR/1.73 sq M.predicted MDRD (S/P/Bld) [Vol rate/Area] 74 mL/min/1.73m*2 Normal >60 [facility] Comment on above: Result Comment: Calc ulations of estimated GFR are performed using the 2020 CKD-EPI Study Refit equation without the race variable for the IDMS-Traceable creatinine methods. https://jasn.asnjournals.org/content//ASN.45669 98307 Performed By: #### 2 4323-8 #### OMERO KNIGHT (61646) [facility] ([facility]) [address] [place] [address] 19697 Glucose [Mass/Vol] 143 mg/dL High 74-99 [facility] Comment on above: Performed By: #### 2 4323-8 #### OMERO KNIHGT (27796) [facility] ([facility]) [address] [place] [address] 02960 Potassium [Moles/Vol] 4.3 mmol/L Normal 3.5-5.3 [facility] Comment on above: Performed By: #### 2 4323-8 #### OMERO KNIGHT (51170) [facility] ([facility]) [address] [place] [address] 20846 Protein [Mass/Vol] 6.9 g/dL Normal 6.4-8.2 [facility] Comment on above: Performed By: #### 2 4323-8 #### OMERO KNIGHT (38421) [facility] ([facility]) [address] [place] [address] 01102 Sodium [Moles/Vol] 139 mmol/L Normal 136-145 [facility] Comment on above: Performed By: #### 2 4323-8 #### OMERO KNIGHT (51665) [facility] ([facility]) [address] [place] [address] 01950 Urea nitrogen [Mass/Vol] 22 mg/dL Normal 6-23 [facility] Comment on above: Performed By: #### 2 4323-8 #### OMERO KNIGHT (34037) [facility] ([facility]) [address] [place] [address] HbA1c (Bld) [Mass fraction]o n 03-06-2023 Average glucose Estimated from glycated hemoglobin (Bld) [Mass/Vol] 160 mg/dL Normal Not Established [facility] Comment on above: Order Comment: Diagn osis of Diabetes-Adults Non-Diabetic: < or = 5.6% Increased risk for developing diabetes: 5.7-6.4% Diagnostic of diabetes: > or = 6.5% Monitoring of Diabetes Age (y)....................... Therapeutic Goal (%) Adults: >18.........................<7.0 Pediatrics: 13-18...................<7.5 Pediatrics: 7-12....................<8.0 Pediatrics: 0-6..................... 7.5-8.5 [place] [employer]. Diabetes Care 33(S1)Apr 2009 Performed By: #### 4 548-4 #### OMERO KNIGHT ([id number]) [facility] ([facility]) [address] [place], [place] [id number] Hemoglobin A1c/Hemoglobin.to zac 03-06-2023 HbA1c (Bld) [Mass fraction] 7.2 % High see below [facility] Comment on above: Order Comment: Diagn osis of Diabetes-Adults Non-Diabetic: < or = 5.6% Increased risk for developing diabetes: 5.7-6.4% Diagnostic of diabetes: > or = 6.5% Monitoring of Diabetes Age (y)....................... Therapeutic Goal (%) Adults: >18.........................<7.0 Pediatrics: 13-18...................<7.5 Pediatrics: 7-12....................<8.0 Pediatrics: 0-6..................... 7.5-8.5 [place] [employer]. Diabetes Care 33(S1), Apr 2009 Performed By: #### 4 548-4 #### OMERO KNIGHT ([id number]) [facility] ([facility]) [address] [place] [address] Lipid 1996 panelon 11-28-202 3 Cholesterol [Mass/Vol] 125 mg/dL Normal 0-199 Un [facility] Comment on above: Result Comment: Age Desirable [...] By: #### 2 4331-1 #### OMERO KNIGHT ([id number]) [facility] ([facility]) [address] [place] [address] Cholesterol in HDL [Mass/Vol] 55.0 mg/dL Normal [facility] Comment on above: Result Comment: Age Very Low Low Normal High 0-19 Y < 35 < 40 40-45 ---- 20-24 Y ---- < 40 >45 ---- >24 Y ---- < 40 40-60 >60 Performed By: #### 2 4331-1 #### OMERO KNIGHT ([id number]) [facility] ([facility]) [address] [place] [address] Cholesterol in LDL [Mass/Vol] 48 mg/dL Normal <=99 [facility] Comment on above: Result Comment: Near Borderline AGE Desirable Optimal High High Very High 0-19 Y 0 - 109 --- 110-129 >/= 130 ---- 20-24 Y 0 - 119 --- 120-159 >/= 160 ---- >24 Y 0 - 99 100-129 130-159 160-189 >/=190 Performed By: #### 2 4331-1 #### OMERO KNIGHT ([id number]) [facility] ([facility]) [address] [place] [address] Cholesterol in VLDL [Mass/Vol] 22 mg/dL Normal 0-40 [facility] Comment on above: Performed By: #### 2 4331-1 #### OMERO KNIGHT ([id number]) [facility] ([facility]) [address] [place] [address]404 CHOLESTEROL/HDL RATIO 2.3 Normal [facility] Comment on above: Result Comment: Ref Values Desirable < 3.4 High Risk > 5.0 Performed By: #### 2 4331-1 #### OMERO KNIGHT ([id number]) [facility] ([facility]) [address] [place] [address] 99902 NON HDL CHOLESTEROL 70 mg/dL Normal 0-149 [facility] Comment on above: Result Comment: Age Desirable Borderline High High Very High 0-19 Y 0 - 119 120 - 144 >/= 145 >/= 160 20-24 Y 0 - 149 150 - 189 >/= 190 ---- >24 Y 30 mg/dL above LDL Cholesterol goal Performed By: #### 2 4331-1 #### OMERO KNIGHT ([id number]) [facility] ([facility]) [address] [place] [address]51 Triglyceride [Mass/Vol] 111 mg/dL Normal 0-149 [facility] Comment on above: Result Comment: Age [...] By: #### 2 4331-1 #### OMERO KNIGHT ([id number]) [facility] ([facility]) [address] [place] [address]648 Magnesiumon 03-06-2023 Magnesium [Mass/Vol] 1.30 mg/dL Low 1.60-2.40 [facility] Comment on above: Performed By: #### 1 9123-9 #### JAMIL EUGENE ([id number]) [facility] ([facility]) [address] [place] [address] CORONAVIRUS 2019 BY PCRon SARS-CoV-2 (COVID-19) RNA SEFERINO+probe Ql (Unsp spec) Not detected Normal Not Detected [facility] Comment on above: Result Comment: . This test has received FDA Emergency Use Authorization (EUA) and has been verified by [facility]. This test is only authorized for the duration of time that circumstances exist to justify the authorization of the emergency use of in vitro diagnostic tests for the detection of SARS-CoV-2 virus and/or diagnosis of COVID-19 infection under section 564(b)(1) of the Act, 21 U.S.C. 360bbb-3(b)(1), unless the authorization is terminated or revoked sooner. [facility] is certified under CLIA-88 as qualified to perform high complexity testing. Testing is performed in the [facility] laboratory located at [address] [place] [address]. SARS-CoV-2/Flu/RSV Multiplex Test: Fact sheet for providers: https://www.fda.gov/media/231045/download Fact sheet for patients: https://www.fda.gov/media/095768/download Performed By: #### C OV19 #### [place] [address] Lab Specimen Source Nasal, Nasopharyngeal Normal [facility] Comment on above: Performed By: #### C OV19 #### [place] [address] Covid 19 Resultson SARS-CoV-2 (COVID-19) RNA SEFERINO+probe Ql (Unsp spec) [...] You may also be contacted by the [facility] to see if any of your close [...] or Naproxen (Aleve) can also be used. Oxsc-hys-uufkdmc cough and cold medicines can be used according to the instructions on the package. Some tlhf-hos-zowpsze medicines also contain acetaminophen. Make sure you [...] water are not available, use alcohol-based hand education department registrar. Avoid touching your eyes, nose, and mouth [...] 24 rai (more content not included)... Normal [facility] Daily Progress Note-General Internal Medicineon 09-15-2022 Daily Progress Note-General Internal Medicine Service: General Internal Medicine Subjective Data: DARYN SHAH is a 76 year old Female who is Hospital Day # 8. Additional Information: Patient seen and examined at bedside. Patient doing well. No complaints today. Getting ready to go to rehab today. Objective Data: Objective Information: T PRBPMAPSpO2 [id number]/5994% Date/Time09/15 8: 8: 8: 8: 8:00 Range(36.5C - 36.8C ) (78 - 87 ) (16 - 16 ) (94 - 141 )/ (59 - 82 ) (94% - 97% ) Pain reported at 09/15 8:45: 0 = None ---- Intake and Output ----- Mn/Dy/Year TimeIntakeOutputNet Sep 14, 2022 10:00 [id number] Sep 14, 2022 2:00 [id number] The Intake and Output Totals for the last 24 hours are: IntakeOutputNet [id number] Physical Exam by System: Constitutional: Well developed, [...] Spontaneous/Phasic Peroneal Yes None PTV Yes None 72010 Don Rico MD Final [facility] Venous Duplex Ultrasound for DVT [Sep 11 2022 7:14PM] Conclusion: CONCLUSIONS: 1. Left ventricular systolic function is normal with a 55% estimated ejection fraction. 2. The left atrium is severely dilated. 3. Findings appear consistent with mild aortic stenosis. QUANTITATIVE DATA SUMMARY: 2D MEASUREMENTS: Normal Ranges: Ao Root d: 2.80 cm (2.0-3.7cm) LAs: 4.30 cm (2.7-4 (more content not included)... Normal [facility] GLUCOSE-POCTon 09-15-2022 Glucose [Mass/Vol] 141 mg/dL High 74 - 99 [facility] Comment on above: Performed By: #### B MP #### [address] [address] Glucose [Mass/Vol] 165 mg/dL High 74 - 99 [facility] Comment on above: Performed By: #### G ROLLY #### [address] [address] BASIC METABOLIC PANELon 06-0 Anion gap [Moles/Vol] 10 mmol/L Normal 10 - 20 [facility] Comment on above: Performed By: #### B MP ####[address] [address] Calcium [Mass/Vol] 8.4 mg/dL Low 8.6 - 10.3 [facility] Comment on above: Performed By: #### B MP ####[address] [address] Chloride [Moles/Vol] 96 mmol/L Low 98 - 107 [facility] Comment on above: Performed By: #### B MP ####[address] [address] Creatinine [Mass/Vol] 0.96 mg/dL Normal 0.50 - 1.05 [facility] Comment on above: Performed By: #### B MP ####[address] [address] GFR/1.73 sq M.predicted among non-blacks MDRD (S/P/Bld) [Vol rate/Area] 62 mL/min/{1.73_m2} Normal >90 [facility] Comment on above: Result Comment: CALC ULATIONS OF ESTIMATED GFR ARE PERFORMED USING THE 2020 CKD-EPI STUDY REFIT EQUATION WITHOUT THE RACE VARIABLE FOR THE IDMS-TRACEABLE CREATININE METHODS. https://jasn.asnjournals.org/content///ASN.99631 38689 Performed By: #### B MP ####[address] [address] Glucose [Mass/Vol] 153 mg/dL High 74 - 99 [facility] Comment on above: Performed By: #### B MP ####[address] [address] HCO3 (Bld) [Moles/Vol] 31 mmol/L Normal 21 - 32 [facility] Comment on above: Performed By: #### B MP ####[address] [address] Potassium [Moles/Vol] 3.6 mmol/L Normal 3.5 - 5.3 [facility] Comment on above: Performed By: #### B MP ####[address] [address] Sodium [Moles/Vol] 133 mmol/L Low 136 - 145 [facility] Comment on above: Performed By: #### B MP ####[address] [address] Urea nitrogen [Mass/Vol] 13 mg/dL Normal 6 - 23 [facility] Comment on above: Performed By: #### B MP ####[address] [address] CBCon 09-14-2022 Erythrocyte distribution width (RBC) [Ratio] 17.1 % High 11.5 - 14.5 [facility] Comment on above: Performed By: #### B MP #### [address] [address] Hematocrit (Bld) [Volume fraction] 28.4 % Low 36.0 - 46.0 [facility] Comment on above: Performed By: #### B MP #### [address] [address] Hemoglobin (Bld) [Mass/Vol] 8.1 g/dL Low 12.0 - 16.0 [facility] Comment on above: Performed By: #### B MP #### [address] [address] MCHC (RBC) [Mass/Vol] 28.5 g/dL Low 32.0 - 36.0 [facility] Comment on above: Performed By: #### B MP #### [address] [address] MCV (RBC) [Entitic vol] 71 fL Low 80 - 100 [facility] Comment on above: Performed By: #### B MP #### [address] [address] Platelets (Bld) [#/Vol] 310 10*3/uL Normal 150 - 450 [facility] Comment on above: Performed By: #### B MP #### [address] [address] RBC 4.01 x10E12/L Normal 4.00 - 5.20 [facility] Comment on above: Performed By: #### B MP #### [address] [address] [place] [address] WBC (Bld) [#/Vol] 11.6 10*3/uL High 4.4 - 11.3 [facility] Comment on above: Performed By: #### B #### [address] [place] [address] Consult - Psychiatryon 09-14 Consult - Psychiatry [...] Tona. Also, patient's Shad is now at [facility] for medical admission. Patient describes how she stopped walking 3 years ago when she shut down emotionally after Jojo and Tona left. States she can stand, but due to balance issues, is fearful of falling. Describes system wherein Srinivas and Shad assist her with wheelchair, bathing, toileting, etc. Goes to religion 1x/week, goes to lunch 1x/week with cousin, [...] to obtain Family History: Patient adopted as . Social History: Alcohol Use: denies Drug Use: denies Occupation: Retired. [employer] x 35 years. Social History: Lives in [...] Suicidal Ideas Objective: Objective Information: T PRBPMAPSpO2 Value36.33814353/6596% Date/Time09/14 7: 7: 7: 7: 7:53 Range(36.3C [...] Times a (more content not included)... Normal [facility] Discharge [id number] Discharge Profile2 Discharge Orders: Anticipated Discharge Date: Anticipated Discharge [id number] Anticipated Discharge Time14:48 Problem List: Additional Dx: [...] shower. Diet: Dietlow cholesterol, low fat Fluid [id number] to 2000 ml Hospital Course (Home Care/Gold [...] individual's condition. Attending ProviderAngelique Clarke Attending Provider [id number] Therapy Orders: Occupational Therapy [facility]Eval and Treat [facility]) Physical Therapy OrdersEval and Treat ([facility]) Speech Therapy OrdersEval and Treat ([facility]) Provider Follow Up: Physician To Follow at Skilled/RehabAttending Physician at Skilled/Rehab Provider FINAL REVIEW of Orders: Final Review: Final Review of Medication Reconciliation and Orders Completedby Physician Reviewing ProviderAngelique Clarke MD at 15-Sep-2022 12:31:20 Appointments: Follow-Up Appointment 01: [facility]Dept[facility]Service[facility] Phys[facility]/Facility Physician Reason for Referralpost hospital stay Call to Schedule in1 week Follow-Up Appointment 02: Physician/Dept/ServiceDr Rupal Pickard Reason for ReferralPsychotherapy/Ps ychiatry Call to Schedule inAs needed. O (more content not included)... Normal [facility] GLUCOSE-POCTon 09-14-2022 Glucose [Mass/Vol] 172 mg/dL High 74 - 99 [facility] Comment on above: Performed By: #### C OV19 #### [address] [address] Glucose [Mass/Vol] 204 mg/dL High 74 - 99 [facility] Comment on above: Performed By: #### C OV19 #### [address] [address] Glucose [Mass/Vol] 166 mg/dL High 74 - 99 [facility] Comment on above: Performed By: #### L ACT #### [address] [place] [address] Glucose [Mass/Vol] 144 mg/dL High 74 - 99 [facility] Comment on above: Performed By: #### G ROLLY #### [address] [address] Nutrition Therapy-Assessment - Physician consult for assessmon 09-14-2022 Nutrition Therapy-Assessment - Physician consult for assessm Assessment Subjective/Objective: Note Type: Assessment Physician consult for assessment and recommendations Note Authored by: Registered Dietitian Expeller Operator Pager Number: Rosy Nutrition Note: The patient is a 76 [...] Output ----- Mn/Dy/Year TimeIntakeOutputNet Sep 14, 2022 6:00 [id number] Sep 13, 2022 10:00 [id number] Sep 13, 2022 2:00 [id number] The Intake and Output Totals for the last 24 hours are: IntakeOutputNet [id number] Height/Weight: Height in cm: 167.5 centimeter(s) Weight [...] 13-18 <7.5 7-12 <8.0 0- 6 7.5-8.5 [place] [employer]. Diabetes Care 33(S1), Apr 2009. 09-Sep-2022 04:54, Hemoglobin A1C, Level Hemoglobin A1C, Level7.6 Diagnosis of Diabetes-Adults Non-Diabetic: < or = 5.6% Increased risk for developing diabetes: 5.7-6.4% Diagnostic of diabetes: > or = 6.5% . Monitoring of Diabetes Age (y) Therapeutic Goal (%) Adults: >18 <7.0 Pediatrics: 13-18 <7.5 7-12 <8.0 0- 6 7.5-8.5 [place] [employer]. Diabetes Care 33(S1), Apr 2009. [...] is greater than 400 Notes from Pharmacy: [facility], 08-Sep-2022 Atorvastatin, Tablet (LIPITOR) DOSE = 40 [...] ml/day 90gram Carb/meal, 60gram Carb evening snack (1628-6021 calories), 10-Sep-2022 (more content not included)... [facility] Order Reconciliationon 09-14 Order Reconciliation Page [...] 3.375 gram/Iso-osmoti (more content not included)... Normal [facility] Veme-nw-edhpzhwlrif Rehab Mbcp-nu-tsrkqmwmi Rehab: Info: Disciplinephysical director of occupational therapy Mode of Treatmentco-treatment; physical therapy; occupational therapy Time IN12:56 Time OUT13:30 Total Treatment [id number] Patient in ... at end of sessionbed, [...] to supine Supine to Sit to Supine [place] (Bed Mobility)moderate assist (50% patient effort); 2 [...] upon arrival, agreeable to therapy. Co-treated with YASMEEN this date. Mod assist x1-2 with supine [...] transfers with greater ease/safety. MB Electronic Signatures: Laurent Mckeon (ASSEMBLER KNIFE) (Signed 14-Sep-2022 13:50) Authored: Info, Vision/Cognition, Mobility/Tone, Motor, Sensory, Outcomes Tools, Short Term Goals, Outcome Summary James Mendez (PT) (Signed 19-Sep-2022 08:46) Co-Signer: Info, Vision/Cognition, Mobility/Tone, Motor, Sensory, Outcomes Tools, Short Term Goals, Outcome Summary Last Updated: 19-Sep-2022 08:46 by James Mendez (PT) [facility] Trhv-gh-xxzxtbrwp Rehab: Info: Disciplineoccupational director of occupational therapy Mode of Treatmentco-treatment; occupational therapy; physical therapy Time IN12:54 Time OUT13:32 Total Treatment [id number] Total Minutes CommentFull 38 min co-tx with Laurent DELBERT to maximize performance levels to reach therapy [...] to sit; sit to supine Roll Left [place] (Bed Mobility)independent Xgcmwb-rc-Jsz [place] (Bed Mobility)independent Eus-yt-Bndhca [place] (Bed Mobility)minimum assist (75% patient effort); Min A to lift leg onto bed Assistive Device (Bed Mobility)bed rails Transfer Assessment/Interventions sit to stand transfer; stand to sit transfer Sit-Stand [place] (Transfers)Sit to stand x 3 trials standing 10, 15 then 20 seconds. Mod>max A x 2 with/ verbal cues to stand tall. Each sit to stand improving; maximum assist (25% patient effort); 2 person assist Sit-Stand Assistive Device (Transfers)gait belt; walker, front-wheeled Stand-Sit [place] (Transfers)moderate assist (50% patient effort) Stand-Sit Assistive Device (Transfers)gait belt; walker, front-wheeled Impairments Impacting Function (Mobility)balance; strength; range of motion ADL: BADL Assessment/Interventionl ower body dressing [place] Level (Lower Body Dressing)don; socks; modified independence [...] teethnone Eating Mealsnone AM-PAC (OT) Total Score17 [facility] Goals: Transfer: Established Transfer: Transfer Type Goaltoilet Transfer: [place] Level Goalminimum assist (75% patients effort) Transfer: Assistive Device Goalbedside commode Transfer: Time Frame for Goal2 wks Transfer: Goal Outcomegoal ongoing Strength: Established Strength: GoalWFL Strength: Upper Extremities Goalupper extremity(s) [...] Lower Body Dressing: Established Lower Body Dressing: [place] Level Goalindependent Lower Body Dressing: Time Frame for Goal2 wks Lower Body Dressing: Goal Outcomegoal ongoing; Patient educated with sock aide this date, able to complete with 1x demo Toileting: Established Toileting: [place] Level Goalminimum assist (75% patients effort) Toileting: [...] Info, Vision/Cogni (more content not included)... Normal [facility] BASIC METABOLIC PANELon 06-0 Anion gap [Moles/Vol] 12 mmol/L Normal 10 - 20 [facility] Comment on above: Performed By: #### G ROLLY #### [address] [address] Calcium [Mass/Vol] 8.5 mg/dL Low 8.6 - 10.3 [facility] Comment on above: Performed By: #### G ROLLY #### [address] [address] Chloride [Moles/Vol] 96 mmol/L Low 98 - 107 [facility] Comment on above: Performed By: #### G ROLLY #### [address] [address] Creatinine [Mass/Vol] 0.88 mg/dL Normal 0.50 - 1.05 [facility] Comment on above: Performed By: #### G ROLLY #### [address] [address] GFR/1.73 sq M.predicted among non-blacks MDRD (S/P/Bld) [Vol rate/Area] 69 mL/min/{1.73_m2} Normal >90 [facility] Comment on above: Result Comment: CALC ULATIONS OF ESTIMATED GFR ARE PERFORMED USING THE 2020 CKD-EPI STUDY REFIT EQUATION WITHOUT THE RACE VARIABLE FOR THE IDMS-TRACEABLE CREATININE METHODS. https://jasn.asnjournals.org/content/early/ASN.05742 46669 Performed By: #### G ROLLY #### [address] [address] Glucose [Mass/Vol] 146 mg/dL High 74 - 99 [facility] Comment on above: Performed By: #### G ROLLY #### [address] [address] HCO3 (Bld) [Moles/Vol] 30 mmol/L Normal 21 - 32 [facility] Comment on above: Performed By: #### G ROLLY #### [address] [address] Potassium [Moles/Vol] 3.6 mmol/L Normal 3.5 - 5.3 [facility] Comment on above: Performed By: #### G ROLLY #### [address] [address] Sodium [Moles/Vol] 134 mmol/L Low 136 - 145 [facility] Comment on above: Performed By: #### G ROLLY #### [address] Urea nitrogen [Mass/Vol] 13 mg/dL Normal 6 - 23 [facility] Comment on above: Performed By: #### G ROLLY #### [address] [address] CBC AND DIFFERENTIALon 09-13 % AUTOMATED IMMATURE GRAN 1.0 % High 0.0 - 0.9 [facility] Comment on above: Result Comment: Martina ture Granulocyte Count (IG) includes promyelocytes, myelocytes and metamyelocytes but does not include bands. Percent differential counts (%) should be interpreted in the context of the absolute cell counts (cells/L). Performed By: #### C BCDF #### [address] Basophils (Bld) [#/Vol] 0.06 10*3/uL Normal 0.00 - 0.10 [facility] Comment on above: Performed By: #### C BCDF #### [address] [address] Basophils/100 WBC (Bld) 0.5 % Normal 0.0 - 2.0 [facility] Comment on above: Performed By: #### C BCDF #### [address] Eosinophils (Bld) [#/Vol] 0.50 10*3/uL High 0.00 - 0.40 [facility] Comment on above: Performed By: #### C BCDF #### [address] [address] Eosinophils/100 WBC (Bld) 4.3 % Normal 0.0 - 6.0 [facility] Comment on above: Performed By: #### C BCDF #### [address] [address] Erythrocyte distribution width (RBC) [Ratio] 17.2 % High 11.5 - 14.5 [facility] Comment on above: Performed By: #### C BCDF #### [address] [address] Hematocrit (Bld) [Volume fraction] 28.3 % Low 36.0 - 46.0 [facility] Comment on above: Performed By: #### C BCDF #### [address] [address] Hemoglobin (Bld) [Mass/Vol] 8.1 g/dL Low 12.0 - 16.0 [facility] Comment on above: Performed By: #### C BCDF #### [address] [address] Lymphocytes (Bld) [#/Vol] 2.73 10*3/uL Normal 0.80 - 3.00 [facility] Comment on above: Performed By: #### C BCDF #### [address] [address] Lymphocytes/100 WBC (Bld) 23.3 % Normal 13.0 - 44.0 [facility] Comment on above: Performed By: #### C BCDF #### [address] [address] MCHC (RBC) [Mass/Vol] 28.6 g/dL Low 32.0 - 36.0 [facility] Comment on above: Performed By: #### C BCDF #### [address] [address] MCV (RBC) [Entitic vol] 70 fL Low 80 - 100 [facility] Comment on above: Performed By: #### C BCDF #### [address] [address] Monocytes (Bld) [#/Vol] 0.91 10*3/uL High 0.05 - 0.80 [facility] Comment on above: Performed By: #### C BCDF #### [address] [address] Monocytes/100 WBC (Bld) 7.8 % Normal 2.0 - 10.0 [facility] Comment on above: Performed By: #### C BCDF #### [address] [address] Neutrophils (Bld) [#/Vol] 7.41 10*3/uL High 1.60 - 5.50 [facility] Comment on above: Result Comment: Perc ent differential counts (%) should be interpreted in the context of the absolute cell counts (cells/L). Performed By: #### C BCDF #### [address] [address] Neutrophils/100 WBC (Bld) 63.1 % Normal 40.0 - 80.0 [facility] Comment on above: Performed By: #### C BCDF #### [address] [address] Platelets (Bld) [#/Vol] 290 10*3/uL Normal 150 - 450 [facility] Comment on above: Performed By: #### C BCDF #### [address] [address] RBC 4.02 x10E12/L Normal 4.00 - 5.20 [facility] Comment on above: Performed By: #### C BCDF #### [address] [address] WBC (Bld) [#/Vol] 11.7 10*3/uL High 4.4 - 11.3 [facility] Comment on above: Performed By: #### C BCDF #### [address] [address] Daily Progress Note-General Internal Medicineon 09-13-2022 Daily [...] progress. Objective Data: Objective Information: T PRBPMAPSpO2 Value36.8625681/6698% Date/Time09/13 10: 10: 10: 10: 10:00 Range(35.9C - 36.6C ) (59 - 74 ) (18 - 20 ) (95 - 113 )/ (59 - 74 ) (95% - 98% ) Pain reported at 09/13 9:50: 0 = None ---- Intake and Output ----- Mn/Dy/Year TimeIntakeOutputNet Sep 13, 2022 2:00 [id number] Sep 13, 2022 6:00 [id number] Sep 12, 2022 10:00 [id number] The Intake and Output Totals for the last 24 hours are: IntakeOutputNet [id number] Physical Exam by System: Constitutional: Well developed, [...] Spontaneous/Phasic Peroneal Yes None PTV Yes None [address] Don Rico MD Final [facility] Venous Duplex Ultrasound for DVT [Sep 11 2022 7:14PM] (more content not included)... Normal [facility] Glucose [Mass/Vol] 222 mg/dL High 74 - 99 [facility] Comment on above: Performed By: #### U ARFX #### [address] [address] Glucose [Mass/Vol] 160 mg/dL High 74 - 99 [facility] Comment on above: Performed By: #### L ACT #### [address] [address] Glucose [Mass/Vol] 220 mg/dL High 74 - 99 [facility] Comment on above: Performed By: #### B MP #### [address] [address] Glucose [Mass/Vol] 142 mg/dL High 74 - 99 [facility] Comment on above: Performed By: #### L ACT #### [address] [address] OT Evaluation v2-occupationa l therapyon 09-13-2022 OT Evaluation v2-occupational therapy Rehab: Info: Mode of Treatmentoccupational therapy Time IN13:29 Time OUT13:54 Total Treatment Urztffy80 Total Minutes Commentplus 1415 to 1437 with PT james Patient in ... at end of sessionchair Communicated with ... at end of sessionbedside nurse; child care aide; physician; Discussion with Dr. Clarke, care transitions Vera and Princess about pt potential and mental health being pt largest limitation Patient Effortgood Symptoms Noted During/After Treatmentfatigue Patient Profile Reviewedyes Onset of Illness/Injury or Date of [id number] Reason for ReferralADL safety Referring PhysicianLogtiffanie Clarke MD Patient/Family/Caregiver Comments/ObservationsPt sitting up in [...] Ax2 with gait belt and FWW Sit-Stand [place] (Transfers)minimum assist (75% patient effort); 2 person assist Sit-Stand Assistive Device (Transfers)gait belt; walker, front-wheeled Stand-Sit [place] (Transfers)minimum assist (75% patient effort); 2 person assist Stand-Sit Assistive Device (Transfers)gait belt; walker, front-wheeled Safety Issues Impacting Function (Mobility)anixety; insight into deficits/self awareness Impairments Impacting Function (Mobility)strength; endurance/activity tolerance; postural/trunk control ADL: BADL Assessment/Interventionl ower body dressing; toileting Position (Lower Body Dressing)unsupported sitting Comment (Lower Body Dressing)sitting in chair [place] Level (Toileting)maximum assist (25% patient effort) Assistive [...] (OT Eval)5 times/wk Predicted Duration of Therapy Gwthudzlsnom34 days Functional Limitations in Following Categoriesself-care; mobility/gait Outc (more content not included)... Normal [facility] Rehab Noteon 09-13-2022 Rehab Note Rehab: Info: Time IN11:31 Time OUT11:46 Total Treatment [id number] Total Minutes Commentadditional time [id number] by PT James Mendez for transfers and [...] floor. Unable to lift/clear right leg. Sit-Stand [place] (Transfers)minimum assist (75% patient effort); 1 person assist Sit-Stand Assistive Device (Transfers)gait belt; walker, front-wheeled Stand-Sit [place] (Transfers)contact guard; 1 person assist; verbal cues [...] steps with railingtotal AM-PAC (PT) Total Score12 [facility] Goals: Bed Mobility: Established Bed Mobility: [place] Level Goalmodified independent; With bed flat and HOB not elevated; can use trapeze bar Bed Mobility: Time Frame for Goal1 wk Transfer: Established Transfer: Transfer Type Zoyadis-xm-jbfrp/chair-t o-bed; hox-ko-fstdv/stand-to-si t Transfer: [place] Level Goalmoderate assist (50% patients effort) Transfer: [...] her I and ease with functional transfers. Rachel Dee, [facility]ENTERMaria Luisa All clinical decision making and treatment directly supervised by Constance Draper ASSEMBLER KNIFE 3781 patient's plan of care updated with updated goals to include transfers and stepping. Patient agreeable to trying to get be (more content not included)... Normal [facility] BASIC METABOLIC PANELon 06-0 Anion gap [Moles/Vol] 12 mmol/L Normal 10 - 20 [facility] Comment on above: Performed By: #### B MP #### [address] [address] Calcium [Mass/Vol] 8.4 mg/dL Low 8.6 - 10.3 [facility] Comment on above: Performed By: #### B MP #### [address] [address] Chloride [Moles/Vol] 97 mmol/L Low 98 - 107 [facility] Comment on above: Performed By: #### B MP #### [address] [address] Creatinine [Mass/Vol] 0.88 mg/dL Normal 0.50 - 1.05 [facility] Comment on above: Performed By: #### B MP #### [address] [address] GFR/1.73 sq M.predicted among non-blacks MDRD (S/P/Bld) [Vol rate/Area] 69 mL/min/{1.73_m2} Normal >90 [facility] Comment on above: Result Comment: CALC ULATIONS OF ESTIMATED GFR ARE PERFORMED USING THE 2020 CKD-EPI STUDY REFIT EQUATION WITHOUT THE RACE VARIABLE FOR THE IDMS-TRACEABLE CREATININE METHODS. https://jasn.asnjournals.org/content//ASN.97675 04683 Performed By: #### B MP #### [address] [address] Glucose [Mass/Vol] 152 mg/dL High 74 - 99 [facility] Comment on above: Performed By: #### B MP #### [address] [address] HCO3 (Bld) [Moles/Vol] 29 mmol/L Normal 21 - 32 [facility] Comment on above: Performed By: #### B MP #### [address] [address] Potassium [Moles/Vol] 3.5 mmol/L Normal 3.5 - 5.3 [facility] Comment on above: Performed By: #### B MP #### [address] [address] Sodium [Moles/Vol] 134 mmol/L Low 136 - 145 [facility] Comment on above: Performed By: #### B MP #### [address] [address] Urea nitrogen [Mass/Vol] 13 mg/dL Normal 6 - 23 [facility] Comment on above: Performed By: #### B MP #### [address] [address] CBC AND DIFFERENTIALon 09-12 % AUTOMATED IMMATURE GRAN 0.9 % Normal 0.0 - 0.9 [facility] Comment on above: Result Comment: Martina ture Granulocyte Count (IG) includes promyelocytes, myelocytes and metamyelocytes but does not include bands. Percent differential counts (%) should be interpreted in the context of the absolute cell counts (cells/L). Performed By: #### L ACT #### [address] [address] Basophils (Bld) [#/Vol] 0.08 10*3/uL Normal 0.00 - 0.10 [facility] Comment on above: Performed By: #### L ACT #### [address] [address] Basophils/100 WBC (Bld) 0.8 % Normal 0.0 - 2.0 [facility] Comment on above: Performed By: #### L ACT #### [address] [address] Eosinophils (Bld) [#/Vol] 0.52 10*3/uL High 0.00 - 0.40 [facility] Comment on above: Performed By: #### L ACT #### [address] [address] Eosinophils/100 WBC (Bld) 4.9 % Normal 0.0 - 6.0 [facility] Comment on above: Performed By: #### L ACT #### [address] [address] Erythrocyte distribution width (RBC) [Ratio] 17.2 % High 11.5 - 14.5 [facility] Comment on above: Performed By: #### L ACT #### [address] [address] Hematocrit (Bld) [Volume fraction] 28.1 % Low 36.0 - 46.0 [facility] Comment on above: Performed By: #### L ACT #### [address] [address] Hemoglobin (Bld) [Mass/Vol] 8.1 g/dL Low 12.0 - 16.0 [facility] Comment on above: Performed By: #### L ACT #### [address] [address] Lymphocytes (Bld) [#/Vol] 2.75 10*3/uL Normal 0.80 - 3.00 [facility] Comment on above: Performed By: #### L ACT #### [address] [address] Lymphocytes/100 WBC (Bld) 26.0 % Normal 13.0 - 44.0 [facility] Comment on above: Performed By: #### L ACT #### [address] [address] MCHC (RBC) [Mass/Vol] 28.8 g/dL Low 32.0 - 36.0 [facility] Comment on above: Performed By: #### L ACT #### [address] [address] MCV (RBC) [Entitic vol] 71 fL Low 80 - 100 [facility] Comment on above: Performed By: #### L ACT #### [address] [address] Monocytes (Bld) [#/Vol] 0.83 10*3/uL High 0.05 - 0.80 [facility] Comment on above: Performed By: #### L ACT #### [address] [address] Monocytes/100 WBC (Bld) 7.8 % Normal 2.0 - 10.0 [facility] Comment on above: Performed By: #### L ACT #### [address] [address] Neutrophils (Bld) [#/Vol] 6.31 10*3/uL High 1.60 - 5.50 [facility] Comment on above: Result Comment: Perc ent differential counts (%) should be interpreted in the context of the absolute cell counts (cells/L). Performed By: #### L ACT #### [address] [address] Neutrophils/100 WBC (Bld) 59.6 % Normal 40.0 - 80.0 [facility] Comment on above: Performed By: #### L ACT #### [address] [address] Platelets (Bld) [#/Vol] 261 10*3/uL Normal 150 - 450 [facility] Comment on above: Performed By: #### L ACT #### [address] [address] RBC 3.98 x10E12/L Low 4.00 - 5.20 [facility] Comment on above: Performed By: #### L ACT #### [address] [address] WBC (Bld) [#/Vol] 10.6 10*3/uL Normal 4.4 - 11.3 [facility] Comment on above: Performed By: #### L ACT #### [address] [address] Daily Progress Note-General Internal Medicineon 09-12-2022 Daily [...] time. Objective Data: Objective Information: T PRBPMAPSpO2 Value36.75591171/7497% Date/Time09/12 7: 7: 7: 7: 7:35 Range(36.1C - 36.8C ) (66 - 87 ) (16 - 20 ) (100 - 113 )/ (64 - 74 ) (95% - 97% ) Pain reported at 09/12 9:07: 3 = Mild ---- Intake and Output ----- Mn/Dy/[facility] Sep 12, 2022 6:00 [id number] Sep 11, 2022 10:00 [id number] Sep 11, 2022 2:00 [id number] The Intake and Output Totals for the last 24 hours are: IntakeOutputNet [id number] Physical Exam by System: Constitutional: Well developed, [...] 1 tablet(s) Oral Daily 12. Vancomycin - [facility] to Dose - IV Piggy Back: 1 [...] Spontaneous/Phasic Peroneal Yes None PTV Yes None [id number] Don Rico MD Final [facility] Venous Duplex Ultrasound for DVT [Sep 11 2022 7:14PM] Conclusion: CONCLUSIONS: 1. Left ventricular systolic function is normal with (more content not included)... Normal [facility] Daily Progress Note-Nephrolo gyon 09-12-2022 Daily Progress Note-Nephrology Service: Nephrology Subjective Data: DARYN SHAH is a 76 year old Female who is Hospital Day # 5. Patient seen and examined at the bedside this morning She is resting comfortably in bed No major complaints Does get teary as she wants to go home and be with her . Objective Data: Objective Information: T PRBPMAPSpO2 Value36.19627724/7497% Date/Time09/12 7: 7: 7: 7: 7:35 Range(36.1C - 36.8C ) (66 - 87 ) (16 - 20 ) (100 - 113 )/ (64 - 74 ) (95% - 97% ) Pain reported at 09/12 9:07: 3 = Mild ---- Intake and Output ----- Mn/Dy/Year TimeIntakeOutputNet Sep 12, 2022 6:00 [id number] Sep 11, 2022 10:00 [id number] Sep 11, 2022 2:00 [id number] The Intake and Output Totals for the last 24 hours are: IntakeOutputNet [id number] Physical Exam by System: Constitutional: Awake, alert, [...] Last Updated: 12-Sep-2022 11:24 by Ru Mills () Normal [facility] GLUCOSE-POCTon 09-12-2022 Glucose [Mass/Vol] 177 mg/dL High - [address] [place] [address] Comment on above: Performed By: #### U ARFX #### [address] [address] Glucose [Mass/Vol] 159 mg/dL High - [address] [place] [address] Comment on above: Performed By: #### L ACT #### [address] [address] Glucose [Mass/Vol] 137 mg/dL High - [address] [place] [address] Comment on above: Performed By: #### G ROLLY ####[address] [address] Glucose [Mass/Vol] 146 mg/dL High 74 - [address] [place] [address] Comment on above: Performed By: #### L ACT #### [address] [address] OSMOLALITY,URINE SPOTon OSMOLALITY,URINE SPOT 441 mOsm/kg Normal 200 - 1200 [facility] Comment on above: Performed By: #### L ACT #### [address] [address] OT Evaluation v2-occupationa l therapyon 09-12-2022 OT Evaluation v2-occupational therapy Rehab: Info: Mode of Treatmentattempted; occupational therapy Evaluation Not Performedx2 attempts made to see pt between 1447 and 1513. Pt unavailable at this time, with other care provider. Will attempt tomorrow. 09/13 Electronic Signatures: Jadyn Monk (OT) (Signed 12-Sep-2022 15:13) Authored: Info Last Updated: 12-Sep-2022 15:13 by Jadyn Monk (OT) [facility] Rehab Note-individual therap yon 09-12-2022 Rehab Note-individual therapy Rehab: Info: Disciplinephysical director of occupational therapy Mode of Treatmentindividual therapy; physical therapy Time IN10:35 Time OUT11:06 Total Treatment [id number] Patient in ... at end of sessionbed, [...] to supine Supine to Sit to Supine [place] (Bed Mobility)contact guard; 1 person assist; minimum [...] and transfers with greater ease and safety. MB Electronic Signatures: Laurent Mckeon (ASSEMBLER KNIFE) (Signed 12-Sep-2022 12:06) Authored: Info, Vision/Cognition, Mobility/Tone, Motor, Sensory, Outcomes Tools, Short Term Goals, Outcome Summary James Mendez (PT) (Signed 13-Sep-2022 08:29) Co-Signer: Outcome Summary Last Updated: 13-Sep-2022 08:29 by James Mendez (PT) Normal [facility] SODIUM, URINE SPOTon 023 CREATININE,URINE 45.6 mg/dL Normal 20.0 - 320.0 [facility] Comment on above: Performed By: #### G ROLLY #### [place] [id number] Sodium (U) [Moles/Vol] 156 mmol/L Normal Not Established [facility] Comment on above: Performed By: #### G ROLLY #### [address] [address] SODIUM/CREAT RATIO 342 mmol/g Creat Normal Not Established [facility] Comment on above: Performed By: #### G ROLLY #### [address] [address] URIC ACIDon 09-12-2022 Urate [Mass/Vol] 4.1 mg/dL Normal 2.3 - 6.7 [facility] Comment on above: Result Comment: Loly puncture immediately after or during the administration of Metamizole may lead to falsely low results. Testing should be performed immediately prior to Metamizole dosing. Performed By: #### L ACT #### [address] [address] CBC AND DIFFERENTIALon 09-11 % AUTOMATED IMMATURE GRAN 0.5 % Normal 0.0 - 0.9 [facility] Comment on above: Result Comment: Martina ture Granulocyte Count (IG) includes promyelocytes, myelocytes and metamyelocytes but does not include bands. Percent differential counts (%) should be interpreted in the context of the absolute cell counts (cells/L). Performed By: #### U ARFX #### [address] [address] Basophils (Bld) [#/Vol] 0.06 10*3/uL Normal 0.00 - 0.10 [facility] Comment on above: Performed By: #### U ARFX #### [address] [address] Basophils/100 WBC (Bld) 0.5 % Normal 0.0 - 2.0 [facility] Comment on above: Performed By: #### U ARFX #### [address] [address] Eosinophils (Bld) [#/Vol] 0.48 10*3/uL High 0.00 - 0.40 [facility] Comment on above: Performed By: #### U ARFX #### [address] [address] Eosinophils/100 WBC (Bld) 4.0 % Normal 0.0 - 6.0 [facility] Comment on above: Performed By: #### U ARFX #### [address] [address] Erythrocyte distribution width (RBC) [Ratio] 17.1 % High 11.5 - 14.5 [facility] Comment on above: Performed By: #### U ARFX #### [address] [address] Hematocrit (Bld) [Volume fraction] 27.8 % Low 36.0 - 46.0 [facility] Comment on above: Performed By: #### U ARFX #### [address] [address] Hemoglobin (Bld) [Mass/Vol] 8.0 g/dL Low 12.0 - 16.0 [facility] Comment on above: Performed By: #### U ARFX #### [address] [address] Lymphocytes (Bld) [#/Vol] 2.95 10*3/uL Normal 0.80 - 3.00 [facility] Comment on above: Performed By: #### U ARFX #### [address] [address] Lymphocytes/100 WBC (Bld) 24.4 % Normal 13.0 - 44.0 [facility] Comment on above: Performed By: #### U ARFX #### [address] [address] MCHC (RBC) [Mass/Vol] 28.8 g/dL Low 32.0 - 36.0 [facility] Comment on above: Performed By: #### U ARFX #### [address] [address] MCV (RBC) [Entitic vol] 71 fL Low 80 - 100 [facility] Comment on above: Performed By: #### U ARFX #### [address] [address] Monocytes (Bld) [#/Vol] 1.01 10*3/uL High 0.05 - 0.80 [facility] Comment on above: Performed By: #### U ARFX #### [address] [address] Monocytes/100 WBC (Bld) 8.4 % Normal 2.0 - 10.0 [facility] Comment on above: Performed By: #### U ARFX #### [address] [address] Neutrophils (Bld) [#/Vol] 7.53 10*3/uL High 1.60 - 5.50 [facility] Comment on above: Result Comment: Perc ent differential counts (%) should be interpreted in the context of the absolute cell counts (cells/L). Performed By: #### U ARFX #### [address] [address] Neutrophils/100 WBC (Bld) 62.2 % Normal 40.0 - 80.0 [facility] Comment on above: Performed By: #### U ARFX #### [address] [address] Platelets (Bld) [#/Vol] 252 10*3/uL Normal 150 - 450 [facility] Comment on above: Performed By: #### U ARFX #### [address] [address] RBC 3.94 x10E12/L Low 4.00 - 5.20 [facility] Comment on above: Performed By: #### U ARFX #### [address] [address] WBC (Bld) [#/Vol] 12.1 10*3/uL High 4.4 - 11.3 [facility] Comment on above: Performed By: #### U ARFX #### [place] [address] COMPREHENSIVE PANELon 2022 Albumin [Mass/Vol] 3.1 g/dL Low 3.4 - 5.0 [facility] Comment on above: Performed By: #### G ROLLY #### [address] [address] ALP [Catalytic activity/Vol] 89 U/L Normal 33 - 136 [facility] Comment on above: Performed By: #### G ROLLY #### [address] [address] ALT [Catalytic activity/Vol] 6 U/L Low 7 - 45 [facility] Comment on above: Result Comment: Madhavi ents treated with Sulfasalazine may generate falsely decreased results for ALT. Performed By: #### G ROLLY #### [address] [address] Anion gap [Moles/Vol] 9 mmol/L Low 10 - 20 [facility] Comment on above: Performed By: #### G ROLLY #### [address] [address] AST [Catalytic activity/Vol] 10 U/L Normal 9 - 39 [facility] Comment on above: Performed By: #### G ROLLY #### [address] [address] Bilirubin [Mass/Vol] 0.4 mg/dL Normal 0.0 - 1.2 [facility] Comment on above: Performed By: #### G ROLLY #### [address] [address] Calcium [Mass/Vol] 8.5 mg/dL Low 8.6 - 10.3 [facility] Comment on above: Performed By: #### G ROLLY #### [address] [address] Chloride [Moles/Vol] 96 mmol/L Low 98 - 107 [facility] Comment on above: Performed By: #### G ROLLY #### [address] [address] Creatinine [Mass/Vol] 0.72 mg/dL Normal 0.50 - 1.05 [facility] Comment on above: Performed By: #### G ROLLY #### [address] [address] GFR/1.73 sq M.predicted among non-blacks MDRD (S/P/Bld) [Vol rate/Area] 87 mL/min/{1.73_m2} Normal >90 [facility] Comment on above: Result Comment: CALC ULATIONS OF ESTIMATED GFR ARE PERFORMED USING THE 2020 CKD-EPI STUDY REFIT EQUATION WITHOUT THE RACE VARIABLE FOR THE IDMS-TRACEABLE CREATININE METHODS. https://jasn.asnjournals.org/content/early//ASN.86128 03949 Performed By: #### G ROLLY #### [address] [address] Glucose [Mass/Vol] 136 mg/dL High 74 - 99 [facility] Comment on above: Performed By: #### G ROLLY #### [address] [address] HCO3 (Bld) [Moles/Vol] 30 mmol/L Normal 21 - 32 [facility] Comment on above: Performed By: #### G ROLLY #### [address] [address] Potassium [Moles/Vol] 3.5 mmol/L Normal 3.5 - 5.3 [facility] Comment on above: Performed By: #### G ROLLY #### [address] [address] Protein [Mass/Vol] 5.9 g/dL Low 6.4 - 8.2 [facility] Comment on above: Performed By: #### G ROLLY #### [address] [address] Sodium [Moles/Vol] 131 mmol/L Low 136 - 145 [facility] Comment on above: Performed By: #### G ROLLY #### [address] [address] Urea nitrogen [Mass/Vol] 13 mg/dL Normal 6 - 23 [facility] Comment on above: Performed By: #### G ROLLY #### [address] [address] Consult-Nephrologyon 023 Consult-Nephrology Service: Service: Nephrology Consult: [...] Known Allergies: Objective: Objective Information: T PRBPMAPSpO2 Value36.06921102/7095% Date/Time09/11 7: 7: 7: 7: 7:54 Range(36.4C [...] Bilateral [J (more content not included)... Normal [facility] Daily Progress Note-General Internal Medicineon 09-11-2022 Daily Progress Note-General Internal Medicine Service: General Internal Medicine Subjective Data: DARYN SHAH is a 76 year old Female who is Hospital Day # 4. Overnight Events: Patient had an uneventful night. Additional Information: Patient seen and examined at bedside. She is doing well. No issues today Objective Data: Objective Information: T PRBPMAPSpO2 Value36.77055805/7095% Date/Time09/11 7: 7: 7: 7: 7:54 Range(36.4C - 36.7C ) (66 - 94 ) (16 - 19 ) (107 - 124 )/ (69 - 74 ) (94% - 98% ) Pain reported at 09/10 20:00: 0 = None ---- Intake and Output ----- [facility] 11, 2022 6:00 [id number] Sep 10, 2022 10:00 [id number] Sep 10, 2022 2:00 [id number] The Intake and Output Totals for the last 24 hours are: [facility] [id number] Physical Exam by System: Constitutional: Well developed, [...] 1 tablet(s) Oral Daily 11. Vancomycin - h to Dose - IV Piggy Back: 1 [...] wounds Hi (more content not included)... Normal [facility] Echocardiogramon 09-11-2022 Echocardiography [facility] [place] [address] ext-2528, TRANSTHORACIC ECHOCARDIOGRAM REPORT Patient Name: DARYN SHAH Reading Physician: [id number] Norman Valdivia MD Study Date: 09/11/2022 Referring ANGELIQUE CLARKE Physician: MRN/PID: [id number] PCP: Accession/Order#: [id number] Department [address] Location: Date of : 1945 Fellow: Gender: F Nurse: Admit Date: 09/08/2022 Process Control Engineer: Asia Miles RVT, RCS Admission Status: Inpatient - Additional Staff: Routine Height: 167.00 cm CC Report to: Weight: 116.00 kg Study Type: Echocardiogram BSA: 2.21 m2 Blood Pressure: 111 /70 mmHg Diagnosis/ICD: I48.0-Paroxysmal atrial fibrillation Indication: AFib Procedure/CPT: Echo Complete w Full Doppler-[id number] Patient History: Pertinent History: Previous echo 02-14-2019. [...] LA Area A2C: 26.8 cm2 LA [place] A4C: 6.8 cm LA [place] A2C: 5.7 cm LA Volume Index: 44.3 [...] 1.1 m/s (0.6-0.9m/s) PV Max P.5 mmHg [id number] Norman Valdivia MD Electronically signed on 09/11/2022 at 11:54:26 AM Final Normal [facility] FECAL OCCULT BLD IMMUNOASSAY on 09-11-2022 FECAL OCCULT BLD IMMUNOASSAY Negative Normal Negative [facility] Comment on above: Result Comment: This test [...] date. Performed By: #### U ARFX #### [place] [address] Lab Specimen Source Stool Normal [facility] Comment on above: Performed By: #### U ARFX #### [address] [address] GLUCOSE-POCTon 09-11-2022 Glucose [Mass/Vol] 169 mg/dL High 74 - 99 [facility] Comment on above: Performed By: #### U ARFX #### [address] [address] Glucose [Mass/Vol] 203 mg/dL High 74 - 99 [facility] Comment on above: Performed By: #### G ROLLY #### [address] [address] Glucose [Mass/Vol] 134 mg/dL High 74 - 99 [facility] Comment on above: Performed By: #### G ROLLY #### [place] [id number] Glucose [Mass/Vol] 153 mg/dL High 74 - [address] [place] [address] Comment on above: Performed By: #### G ROLLY ####[place] [id number] Rehab Note-physical therapyo n 09-11-2022 Rehab Note-physical therapy Rehab: Info: Disciplinephysical director of occupational therapy Mode of Treatmentphysical therapy Time IN13:54 Time OUT14:31 Total Treatment [id number] Patient in ... at end of sessionbed, 0 railings up; bed, 3 railings up; alarm on; family members in room Patient Effortgood Symptoms Noted During/After Treatmentfatigue Line and TubesIV; telemetry; bianca Pre Treatment Patient Positionsitting Pre Treatment Heart [...] Outcome Summary: Physical TherapyPatient became emotional when director community health nursing kept adjusting portable telemetry and stating her [...] Info, Mobility/Tone, Motor, Outcomes Tools Constance Draper (ASSEMBLER KNIFE) (Signed 11-Sep-2022 15:56) Authored: Info, Mobility/Tone, Motor, Sensory, Outcomes Tools, Outcome Summary Valery Christy (PT) (Signed 11-Sep-2022 16:41) Co-Signer: Info, Mobility/Tone, Motor, Sensory, Outcomes Tools, Outcome Summary Last Updated: 11-Sep-2022 16:41 by Valery Christy (PT) Normal [facility] Venous Duplex Ultra sound DVTon 09-11-2022 [facility] LAB Venous [place] [address] ext-2528, Vascular Lab Report Lower Venous Duplex Ultrasound Patient Name: DARYN SHAH Reading Physician: [id number] Don Rico MD Study Date: 09/11/2022 Referring Physician: CHIDI SCHULZ MRN/PID: [id number] PCP: Accession/Order#: [id number] CC Report to: Date of : 1945 Technologist: Cristal Iyer RVT Gender: F Technologist 2: Admission Status: Inpatient Location Performed: [facility] Diagnosis/ICD: R60.0-Localized (leg) edema; M79.89-Left leg swelling; M79.605-Pain in left leg Procedure/CPT: 36334 Peripheral venous duplex scan for DVT complete-[id number] CONCLUSIONS: Right Lower Venous: No evidence of [...] Spontaneous/Phasic Peroneal Yes None PTV Yes None [id number] Don Rico MD Final Normal [facility] BASIC METABOLIC PANELon 06-0 Anion gap [Moles/Vol] 10 mmol/L Normal 10 - 20 [facility] Comment on above: Performed By: #### B MP #### [address] [address] Calcium [Mass/Vol] 8.4 mg/dL Low 8.6 - 10.3 [facility] Comment on above: Performed By: #### B MP #### [address] [address] Chloride [Moles/Vol] 97 mmol/L Low 98 - 107 [facility] Comment on above: Performed By: #### B MP #### [address] [address] Creatinine [Mass/Vol] 0.82 mg/dL Normal 0.50 - 1.05 [facility] Comment on above: Performed By: #### B MP #### [address] [address] GFR/1.73 sq M.predicted among non-blacks MDRD (S/P/Bld) [Vol rate/Area] 75 mL/min/{1.73_m2} Normal >90 [facility] Comment on above: Result Comment: CALC ULATIONS OF ESTIMATED GFR ARE PERFORMED USING THE 2020 CKD-EPI STUDY REFIT EQUATION WITHOUT THE RACE VARIABLE FOR THE IDMS-TRACEABLE CREATININE METHODS. https://jasn.asnjournals.org/content//ASN.84275 19266 Performed By: #### B MP #### [address] [address] Glucose [Mass/Vol] 152 mg/dL High 74 - 99 [facility] Comment on above: Performed By: #### B MP #### [address] [address] HCO3 (Bld) [Moles/Vol] 28 mmol/L Normal 21 - 32 [facility] Comment on above: Performed By: #### B MP #### [address] [address] Potassium [Moles/Vol] 3.6 mmol/L Normal 3.5 - 5.3 [facility] Comment on above: Performed By: #### B MP #### [address] [address] Sodium [Moles/Vol] 131 mmol/L Low 136 - 145 [facility] Comment on above: Performed By: #### B MP #### [address] [address] Urea nitrogen [Mass/Vol] 17 mg/dL Normal 6 - 23 [facility] Comment on above: Performed By: #### B MP #### [address] [address] CBC AND DIFFERENTIALon 09-10 % AUTOMATED IMMATURE GRAN 0.6 % Normal 0.0 - 0.9 [facility] Comment on above: Result Comment: Martina ture Granulocyte Count (IG) includes promyelocytes, myelocytes and metamyelocytes but does not include bands. Percent differential counts (%) should be interpreted in the context of the absolute cell counts (cells/L). Performed By: #### C BCDF ####[address] [address] Basophils (Bld) [#/Vol] 0.06 10*3/uL Normal 0.00 - 0.10 [facility] Comment on above: Performed By: #### C BCDF ####[address] [address] Basophils/100 WBC (Bld) 0.5 % Normal 0.0 - 2.0 [facility] Comment on above: Performed By: #### C BCDF ####[address] [address] Eosinophils (Bld) [#/Vol] 0.28 10*3/uL Normal 0.00 - 0.40 [facility] Comment on above: Performed By: #### C BCDF ####[address] [address] Eosinophils/100 WBC (Bld) 2.3 % Normal 0.0 - 6.0 [facility] Comment on above: Performed By: #### C BCDF ####[address] [address] Erythrocyte distribution width (RBC) [Ratio] 17.2 % High 11.5 - 14.5 [facility] Comment on above: Performed By: #### C BCDF ####[address] [address] Hematocrit (Bld) [Volume fraction] 26.4 % Low 36.0 - 46.0 [facility] Comment on above: Performed By: #### C BCDF ####[address] [address] Hemoglobin (Bld) [Mass/Vol] 7.8 g/dL Low 12.0 - 16.0 [facility] Comment on above: Performed By: #### C BCDF ####[address] [address] Lymphocytes (Bld) [#/Vol] 2.19 10*3/uL Normal 0.80 - 3.00 [facility] Comment on above: Performed By: #### C BCDF ####[address] [address] Lymphocytes/100 WBC (Bld) 17.6 % Normal 13.0 - 44.0 [facility] Comment on above: Performed By: #### C BCDF ####[address] [address] MCHC (RBC) [Mass/Vol] 29.5 g/dL Low 32.0 - 36.0 [facility] Comment on above: Performed By: #### C BCDF ####[address] [address] MCV (RBC) [Entitic vol] 70 fL Low 80 - 100 [facility] Comment on above: Performed By: #### C BCDF ####[address] [address] Monocytes (Bld) [#/Vol] 1.19 10*3/uL High 0.05 - 0.80 [facility] Comment on above: Performed By: #### C BCDF ####[address] [address] Monocytes/100 WBC (Bld) 9.6 % Normal 2.0 - 10.0 [facility] Comment on above: Performed By: #### C BCDF ####[address] [address] Neutrophils (Bld) [#/Vol] 8.64 10*3/uL High 1.60 - 5.50 [facility] Comment on above: Result Comment: Perc ent differential counts (%) should be interpreted in the context of the absolute cell counts (cells/L). Performed By: #### C BCDF ####[address] [address] Neutrophils/100 WBC (Bld) 69.4 % Normal 40.0 - 80.0 [facility] Comment on above: Performed By: #### C BCDF ####[address] [address] Platelets (Bld) [#/Vol] 225 10*3/uL Normal 150 - 450 [facility] Comment on above: Performed By: #### C BCDF ####[address] [address] RBC 3.78 x10E12/L Low 4.00 - 5.20 [facility] Comment on above: Performed By: #### C BCDF ####[address] [address] WBC (Bld) [#/Vol] 12.4 10*3/uL High 4.4 - 11.3 [facility] Comment on above: Performed By: #### C BCDF ####[address] [address] Daily Progress Note-General Internal Medicineon 09-10-2022 Daily [...] vancomycin Objective Data: Objective Information: T PRBPMAPSpO2 [id number]/7497% Date/Time09/10 7: 7: 7: 7: 7:50 Range(36.1C - 37.1C ) (58 - 94 ) (18 - 19 ) (101 - 117 )/ (57 - 74 ) (97% - 98% ) Highest temp of 37.1 C was recorded at 09/09 15:27 Pain reported at 09/10 9:30: 0 = None ---- Intake and Output ----- [facility] 2022 6:00 [id number] Sep 09, 2022 10:00 [id number] Sep 09, 2022 2:00 [id number] The Intake and Output Totals for the last 24 hours are: [facility] [id number] Physical Exam by System: Constitutional: Well developed, [...] medical history (more content not included)... Normal [facility] EMR ADDONon 09-10-2022 ADDON CONFIRMATION REQUEST REC'D Normal [facility] Comment on above: Performed By: #### U ARFX #### [place] [id number] GLUCOSE-POCTon 09-10-2022 Glucose [Mass/Vol] 160 mg/dL High 74 - 99 [facility] Comment on above: Performed By: #### U ARFX #### [address] [address] Glucose [Mass/Vol] 171 mg/dL High 74 - 99 [facility] Comment on above: Performed By: #### G ROLLY #### [address] [address] Glucose [Mass/Vol] 163 mg/dL High 74 - 99 [facility] Comment on above: Performed By: #### G ROLLY #### [address] [address] Glucose [Mass/Vol] 147 mg/dL High 74 - [address] [place] [address] Comment on above: Performed By: #### U ARFX #### [place] [id number] MAGNESIUMon 09-10-2022 Magnesium [Mass/Vol] 1.80 mg/dL Normal 1.60 - 2.40 [facility] Comment on above: Performed By: #### U ARFX #### [address] [place] [address] PT/INRon 09-10-2022 PT Coag (PPP) [Time] 16.8 s High 9.8 - 13.4 [facility] Comment on above: Performed By: #### P TINR ####[address] [address] PT, INR 1.4 High 0.9 - 1.1 [facility] Comment on above: Performed By: #### P TINR ####[address] [address] Rehab Note-individual therap yon 09-10-2022 Rehab Note-individual therapy Rehab: Info: Disciplinephysical director of occupational therapy Mode of Treatmentindividual therapy Time IN11:07 Time OUT11:26 Total Treatment [id number] Patient in ... at end of sessionbed, [...] Mobility/Tone: Bed Mobility Assessment/Interventions supine to sit [id number] [place] (Bed Mobility)supervision Assistive Device (Bed Mobility)bed rails [...] light and all needs met. Spoke with RN Flynn at end of session about patient sitting at EOB with RN voicing that it was ok. Will continue to work on progressing with POC as tolerated. Electronic Signatures: Ladi Vasquez (ASSEMBLER KNIFE) (Signed 10-Sep-2022 11:45) Authored: Info, Vision/Cognition, Mobility/Tone, Motor, Sensory, Outcomes Tools, Outcome Summary Cameron Perkins (PT) (Signed 10-Sep-2022 13:51) Co-Signer: Info, Vision/Cognition, Mobility/Tone, Motor, Sensory, Outcomes Tools, Outcome Summary Last Updated: 10-Sep-2022 13:51 by Cameron Perkins (PT) [facility] URINALYSIS WITH CULTURE IF I NDICATEDon 09-10-2022 Appearance (U) Canceled [facility] Comment on above: Order Comment: TEST URINALYSIS WITH CULTURE IF INDICATED WAS CANCELLED, 09/10/2022 17:38 NSR. Performed By: #### G ROLLY #### [place] [address] ASCORBIC ACID Canceled [facility] Comment on above: Order Comment: TEST URINALYSIS WITH CULTURE IF INDICATED WAS CANCELLED, 09/10/2022 17:38 NSR. Result Comment: Conc entrations > = 20 mg/dL of ascorbic acid can be expected to cause strong interference in the reactions testing for glucose, nitrite and blood. It is recommended to discontinue Vitamin C administration and retest in 10 hours. Performed By: #### G ROLLY #### [place] [id number] Bilirubin Ql (U) Canceled Normal [facility] Comment on above: Order Comment: TEST URINALYSIS WITH CULTURE IF INDICATED WAS CANCELLED, 09/10/2022 17:38 NSR. Performed By: #### G ROLLY #### [address] [address] Color (U) Canceled [facility] Comment on above: Order Comment: TEST URINALYSIS WITH CULTURE IF INDICATED WAS CANCELLED, 09/10/2022 17:38 NSR. Performed By: #### G ROLLY #### [address] [address] Glucose Ql (U) Canceled [facility] Comment on above: Order Comment: TEST URINALYSIS WITH CULTURE IF INDICATED WAS CANCELLED, 09/10/2022 17:38 NSR. Performed By: #### G ROLLY #### [address] [address] Hemoglobin Ql (U) Canceled [facility] Comment on above: Order Comment: TEST URINALYSIS WITH CULTURE IF INDICATED WAS CANCELLED, 09/10/2022 17:38 NSR. Performed By: #### G ROLLY #### [address] [address] Ketones Ql (U) Canceled [facility] Comment on above: Order Comment: TEST URINALYSIS WITH CULTURE IF INDICATED WAS CANCELLED, 09/10/2022 17:38 NSR. Performed By: #### G ROLLY #### [address] [address] Leukocyte esterase Test strip Ql (U) Canceled [facility] Comment on above: Order Comment: TEST URINALYSIS WITH CULTURE IF INDICATED WAS CANCELLED, 09/10/2022 17:38 NSR. Performed By: #### G ROLLY #### [address] [address] Nitrite Ql (U) Canceled [facility] Comment on above: Order Comment: TEST URINALYSIS WITH CULTURE IF INDICATED WAS CANCELLED, 09/10/2022 17:38 NSR. Performed By: #### G ROLLY #### [place] [id number] pH Canceled Normal [facility] Comment on above: Order Comment: TEST URINALYSIS WITH CULTURE IF INDICATED WAS CANCELLED, 09/10/2022 17:38 NSR. Performed By: #### G ROLLY #### [place] [address] Protein Ql (U) Canceled [facility] Comment on above: Order Comment: TEST URINALYSIS WITH CULTURE IF INDICATED WAS CANCELLED, 09/10/2022 17:38 NSR. Performed By: #### G ROLLY #### [place] [address] Specific gravity (U) [Rel density] Canceled [facility] Comment on above: Order Comment: TEST URINALYSIS WITH CULTURE IF INDICATED WAS CANCELLED, 09/10/2022 17:38 NSR. Performed By: #### G ROLLY #### [place] [id number] UROBILINOGEN Canceled Normal [facility] Comment on above: Order Comment: TEST URINALYSIS WITH CULTURE IF INDICATED WAS CANCELLED, 09/10/2022 17:38 NSR. Performed By: #### G ROLLY #### [place] [id number] VANCOMYCINon 09-10-2022 VANCOMYCIN 10.3 ug/mL Normal [facility] Comment on above: Result Comment: .The rapeutic Ranges: Peak: All ages: 30.0-40.0 ug/mL . Trough: Age <18y: 5.0-10.0 ug/mL . Age >/= 18y: 5.0-20.0 ug/mL . Vancomycin trough concentrations drawn immediately prior to the next dose at steady-state are preferred for monitoring patients treated with vancomycin. Ref.: Am J Health-Syst Pharm 66: 83-98, 2009. Performed By: #### C BCDF #### [place] [id number] BNPon 09-09-2022 Natriuretic peptide B (Bld) [Mass/Vol] 296 pg/mL High 0 - 99 [facility] Comment on above: Result Comment: . <1 00 pg/mL - Heart failure unlikely 100-299 pg/mL - Intermediate probability of acute heart . failure exacerbation. Correlate with clinical . context and patient history. >=300 pg/mL - Heart Failure likely. Correlate with clinical . context and patient history. BNP testing is performed using different testing methodology at [facility] than at other [facility]. Direct result comparisons should only be made within the same method. Performed By: #### C BCDF #### [place] [id number] C-REACTIVE PROTEINon 023 C-REACTIVE PROTEIN 29.42 mg/dL Abnormal [facility] Comment on above: Result Comment: REF VALUE < 1.00 Performed By: #### C RP ####[place] [id number] CBC AND DIFFERENTIALon 09-09 % AUTOMATED IMMATURE GRAN 0.4 % Normal 0.0 - 0.9 [facility] Comment on above: Result Comment: Martina ture Granulocyte Count (IG) includes promyelocytes, myelocytes and metamyelocytes but does not include bands. Percent differential counts (%) should be interpreted in the context of the absolute cell counts (cells/L). Performed By: #### C BCDF #### [address] [address] Basophils (Bld) [#/Vol] 0.02 10*3/uL Normal 0.00 - 0.10 [facility] Comment on above: Performed By: #### C BCDF #### [address] [address] Basophils/100 WBC (Bld) 0.1 % Normal 0.0 - 2.0 [facility] Comment on above: Performed By: #### C BCDF #### [address] [address] Eosinophils (Bld) [#/Vol] 0.09 10*3/uL Normal 0.00 -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 [facility] Comment on above: Performed By: #### C BCDF #### [place] [address] CORONAVIRUS 2019 BY PCRon Lab Specimen Source Nasal, Nasopharyngeal Normal [facility] Comment on above: Performed By: #### C OV19 #### [place] [address] SARS-CoV-2 (COVID-19) RNA SEFERINO+probe Ql (Unsp spec) Not detected Normal Not Detected [facility] Comment on above: Result Comment: . This test has received FDA Emergency Use Authorization (EUA) and has been verified by [facility]. This test is only authorized for the duration of time that circumstances exist to justify the authorization of the emergency use of in vitro diagnostic tests for the detection of SARS-CoV-2 virus and/or diagnosis of COVID-19 infection under section 564(b)(1) of the Act, 21 U.S.C. 360bbb-3(b)(1), unless the authorization is terminated or revoked sooner. [facility] is certified under CLIA-88 as qualified to perform high complexity testing. Testing is performed in the [facility] laboratory located at [address] [place] [address]. SARS-CoV-2/Flu/RSV Multiplex Test: Fact sheet for providers: https://www.fda.gov/media/398050/download Fact sheet for patients: https://www.fda.gov/media/396797/download Performed By: #### C OV19 #### [address] [place] [address] Covid 19 Resultson 3 SARS-CoV-2 (COVID-19) RNA [...] You may also be contacted by the [facility] to see if any of your close [...] or Naproxen (Aleve) can also be used. Xfco-rcu-nnsiqog cough and cold medicines can be used according to the instructions on the package. Some qsex-hrp-coaejse medicines also contain acetaminophen. Make sure you [...] water are not available, use alcohol-based hand education department registrar. Avoid touching your eyes, nose, and mouth [...] 24 rai (more content not included)... Normal [facility] GLUCOSE-POCTon 09-08-2022 Glucose [Mass/Vol] 177 mg/dL High 74 - 99 [facility] Comment on above: Performed By: #### G ROLLY ####[id number] LACTATEon 09-08-2022 LACTATE Canceled Normal [facility] Comment on above: Order Comment: TEST LACTATE WAS CANCELLED, 09/08/2022 17:31 result was normal, does not needrepeated . Result Comment: Loly puncture immediately after or during the administration of Metamizole may lead to falsely low results. Testing should be performed immediately prior to Metamizole dosing. Performed By: #### C OV19 #### [address] [address] Lactate [Moles/Vol] 1.4 mmol/L Normal 0.4 - 2.0 [facility] Comment on above: Result Comment: Loly puncture immediately after or during the administration of Metamizole may lead to falsely low results. Testing should be performed immediately prior to Metamizole dosing. Performed By: #### L ACT #### [address] [address] Order Reconciliationon 09-08 Order Reconciliation Page 1 Admission Reconciliation Document Reconciliation Type: Admission requested on behalf of Angelique Clarke (Physician) done by Angelique Clarke) Admission - Reconciliation: 08-Sep-2022 17:31 by: Angelique Clarke) Home MedicationsEnteredLast Dose TakenReconciled with current Order Reconciliation Comment/ Additional Information ATENOLOL 100MG TAB 0.5 tab(s) orally 2 times a [id number] 3 10:00 AM Atenolol Tablet (TENORMIN)DOSE = 50 mg Oral 2 Times a DayATENOLOL 100MG TAB continued as the inpatient order Atenolol LISINOPRIL 5MG TAB 1 tab(s) orally once a [id number] 3 10:00 AM Lisinopril Tablet (PRINIVIL, ZESTRIL)DOSE = 5 mg Oral DailyLISINOPRIL 5MG TAB continued as the inpatient order Lisinopril LORazepam 1MG TAB 1 tab(s) orally once a day (at bedtime)08-Sep-2022 10:00 PM LORazepam Tablet (ATIVAN)DOSE = 1 mg Oral At Bedtime LORazepam 1MG TAB continued as the inpatient order LORazepam METFORMIN 500MG TAB 1 tab(s) orally 2 times a [id number] 3 10:00 AM Reviewed and Held POT CHLORIDE 10MEQ ER CAP 1 cap(s) orally once a [id number] 3 10:00 AM Potassium Chloride Extended Release Tablet, Extended ReleaseDOSE = 10 mEq Oral DailyPOT CHLORIDE 10MEQ ER CAP continued as the inpatient order Potassium Chloride Extended Release ROSUVASTATIN 10MG TAB 1 tab(s) orally once a [id number] 3 10:00 AM Rosuvastatin Tablet (CRESTOR)DOSE = 10 mg Oral DailyROSUVASTATIN 10MG TAB continued as the inpatient order Rosuvastatin TRIAMT/HCTZ 37.5-25 TAB 1 tab(s) orally once a [id number] 3 10:00 AM Triamterene 37.5 mg- hydroCHLOROthiazide 25 mg - PEDS Tablet (MAXZIDE)DOSE = 1 tablet(s) Oral DailyTRIAMT/HCTZ 37.5-25 TAB continued as the inpatient order Triamterene 37.5 mg- hydroCHLOROthiazide 25 mg - PEDS VENLAFAXINE ER 75MG CAP 1 cap(s) orally once a [id number] 3 10:00 AM Venlafaxine Extended Release Capsule, Extended Release (EFFEXOR XR)DOSE = 75 mg Oral DailyVENLAFAXINE ER 75MG CAP continued as the inpatient order Venlafaxine Extended Release XARELTO 20 MG TABLET 1 tab(s) orally once a [id number] 3 10:00 AM Blood in Urine, Monitor for XARELTO 20 MG TABLET continued as the inpatient order Blood in Urine, Monitor for; XARELTO 20 MG TABLET continued as the inpatient order Bleeding, Monitor for; XARELTO 20 MG TABLET continued as the inpatient order Rivaroxaban XARELTO 20 MG TABLET 1 tab(s) orally once a [id number] 3 10:00 AM Bleeding, Monitor for XARELTO 20 MG TABLET continued as the inpatient order Blood in Urine, Monitor for; XARELTO 20 MG TABLET continued as the inpatient order Bleeding, Monitor for; XARELTO 20 MG TABLET continued as the inpatient order Rivaroxaban XARELTO 20 MG TABLET 1 tab(s) orally once a [id number] 3 10:00 AM Rivaroxaban Tablet (XARELTO)DOSE = [...] Every 8 Hours and as Needed Normal [facility] PT/INRon 09-08-2022 PT Coag (PPP) [Time] 63.6 s Critically abnormal 9.8 - 13.4 [facility] Comment on above: Order Comment: PT RE PORTED TO [facility] , 09/08/2022 13:56 Called- RB to Dr. Vera Huang at 1354 by , 09/08/2022 13:54 Result [facility], 09/08/2022 13:56 Performed By: #### C BCDF #### [place] [address] PT, INR 5.4 Critically abnormal 0.9 - 1.1 [facility] Comment on above: Order Comment: [facility] 13:56 Called- RB to Dr. Vera Huang at 1354 by , 09/08/2022 13:54 Result Comment: Call ed- RB to Dr. Vera Huang at 1354 by , 09/08/2022 13:54 Performed By: #### C BCDF #### [place] [address] Patient Profile - Adult v2on 09-08-2022 Patient Profile - Adult v2 Profile: Initial Info: How to be AddressedEmily Spoken Language PreferredEnglish (1) Source of Informationpatient Stated Reason for AdmissionI'm sick Primary Contact Name and NumberJerry [phone] Wants Family/Rep Notified of Admissionno Notify PCPdo not notify PCP Informed of Patient Visiting Rightsyes [facility] To in Past 90 Daysnone Employment Statusdisabled Current or Previous Servicenone Patient Belongingsremains with patient Patient Belongings Remaining with Patientcell phone/electronics; vision aids; purse/wallet; dental appliance; top dentures Medications Brought to Hospitalno General Health: Weight in kg116.5 kilogram(s) Weight in bmx606.8 pound(s) Weight Methodactual (measured) Scale Typebed Height [...] Known Allergies: Active Electronic Signatures: Dania Braun (UZMA) (Signed 08-Sep-2022 20:10) Authored: Initial Info, General Health, RSP Based Care, Substance, Health Mgmt, Relationship/Environ, Additional Information Last Updated: 08-Sep-2022 20:10 by Dania Braun (UZMA) References: 1. Data Referenced From Triage - ED 08-Sep-2022 12:56 2. Data Referenced From 1. Vital Signs 08-Sep-2022 12:17 3. Data Referenced From History and Physical 08-Sep-2022 17:47 Normal [facility] Provider Note - ED v3on 06-0 Provider [...] beats. Heart rate is 101 bpm. The DE interval is 164 ms. The QRS duration is 96 ms. The QTc is 453 ms. [place] is -15 degrees. Patient was seen and evaluated due to complaints of generalized weakness and fever with inability to get out of bed. She was diagnosed with a urinary tract infection started on broad-spectrum antibiotics due to his concern for sepsis and admitted to the hospital for further IV antibiotics. This chart was dictated with the use of [employer] software within the framework of the current electronic medical records software. Attempts were made to edit in real time, given time constraints there is the potential for inaccuracies in my dictation. Vera Huang, DO HISTORY OF PRESENTING ILLNESS DARYN is [...] day Drug (more content not included)... Normal [facility] RESPIRATORY CULT./SM,LOWERon 09-08-2022 RESPIRATORY CULT./SM,LOWER TEST RESPIRATORY CULT./SM,LOWER WAS CANCELLED, 09/13/2022 04:12 No specimen received. PATIENT: DARYN SHAH LOCATION: [address] BILL#: [id number] : 49 AGE: SEX: F ORDERED BY: ANGELIQUE CLARKE SOURCE: SPUTUM COLLECTED: ANTIBIOTICS AT CAREN.: RECEIVED : SITE: R E S U L T S GRAM STAIN CANCELLED 09/13/22 04:12 RESPIRATORY CULT./SM,LOWER CANCELLED 09/13/22 04:12 [facility] Comment on above: Performed By: #### L ACT #### [place] [address] Risk Screen - Adult Emergenc yon 09-08-2022 [...] Learning Preferencesverbal instruction Cultural Considerationsnone Developmental Considerationsnone Jain Considerationsnone Learning Assessment (Other Learner): Learning Assessment (Other Learner): Other learner availableno Pressure Injury/TB/Substance: Pressure Injury: Do you have a coughno Smoking Statusnever smoker (1) Alcohol Usedenies(1) Drug Usedenies (1) Admission Risk Screen: Significant IndicatorsComplete CAGE: CAGE: Is this an injured patient at a Tra[place] Center [place] [place] no Electronic Signatures: Laurie Talamantes (RN) (Signed 08-Sep-2022 13:04) Authored: Preferred Language, Patient Preferred Pharmacy, Advanced Directives, Family Violence Adult, Learning Assessment (Patient), Learning Assessment (Other Learner), Pressure Injury/TB/Substance, Pressure Injury, CAGE Last Updated: 08-Sep-2022 13:04 by Laurie Talamantes (RN) References: 1. Data Referenced From Provider Note - ED v3 08-Sep-2022 12:38 Normal [facility] Triage - EDon 09-08-2022 Triage - ED Chart Review: PRIMARY ASSESSMENT ABCD Normal Findings: airway open and patent and alert and oriented ARRIVAL INFORMATION Means of Arrival: stretcher Mode of Arrival: ambulance Agency: [facility] Agency Name: karen Arrival From: home Accompanied By: self Language: Spoken Language Preferred: Libyan Reading Language Preferred: Libyan Present on Arrival: Device Present on Arrival [...] BMI (kg/m2): 46.102 Calculated BSA (m2) 2.46 Yahaira Coma Scale: Best Eye Response: (E4) spontaneous Best Motor Response: (M6) obeys commands Best Verbal Response: (V5) oriented Savoy Score: 15 Allergies: no Patient has homicidal [...] 08-Sep-2022 13:01 by Laurie Talamantes (UZMA) Normal [facility] UA MICROSCOPICon 09-08-2022 AMORPHOUS CRYSTAL 2+ /HPF Normal [facility] Comment on above: Performed By: #### C BCDF #### [facility] [address] [place] [address] BACTERIA 2+ /HPF Abnormal [facility] Comment on above: Performed By: #### C BCDF #### [address] [address] RBC None Normal 0-5 [facility] Comment on above: Performed By: #### C BCDF #### [address] [address] WBC 64 /HPF Abnormal 0-5 [facility] Comment on above: Performed By: #### C BCDF #### [place] [id number] WBC CLUMPS RARE Normal [facility] Comment on above: Performed By: #### C BCDF #### [place] [id number] URINALYSIS WITH CULTURE IF I NDICATEDon 09-08-2022 Appearance (U) HAZY Normal CLEAR [facility] Comment on above: Performed By: #### U ARFX #### [place] [address] Bilirubin Ql (U) Negative Normal NEGATIVE [facility] Comment on above: Performed By: #### U ARFX #### [place] [address] Color (U) Yellow Normal STRAW,YELLOW [facility] Comment on above: Performed By: #### U ARFX #### [address] [address] Glucose Ql (U) Negative Normal NEGATIVE [facility] Comment on above: Performed By: #### U ARFX #### [place] [id number] Hemoglobin Ql (U) SMALL(1+) Abnormal NEGATIVE [facility] Comment on above: Performed By: #### U ARFX #### [place] [id number] Ketones Ql (U) 5(TRACE) Abnormal NEGATIVE [facility] Comment on above: Performed By: #### U ARFX #### [place] [id number] Leukocyte esterase Test strip Ql (U) LARGE(3+) Abnormal NEGATIVE [facility] Comment on above: Performed By: #### U ARFX #### [address] [address] Nitrite Ql (U) Negative Normal NEGATIVE [facility] Comment on above: Performed By: #### U ARFX #### [address] [address] pH (U) 5.0 [pH] Normal 5.0 - 8.0 [facility] Comment on above: Performed By: #### U ARFX #### [address] [address] Protein Ql (U) Negative Normal NEGATIVE [facility] Comment on above: Performed By: #### U ARFX #### [address] [address] Specific gravity (U) [Rel density] 1.024 Normal 1.005 - 1.035 [facility] Comment on above: Performed By: #### U ARFX #### [address] [address] Urobilinogen (U) [Mass/Vol] mg/dL Normal 0.0 - 1.9 [facility] Comment on above: Performed By: #### U ARFX #### [place] [id number] URINE CULTURE,BACTERIALon URINE CULTURE,BACTERIAL PATIENT: DARYN SHAH LOCATION: [address]#: [id number] : 49 AGE: SEX: F ORDERED BY: VERA HUANG SOURCE: URINE COLLECTED: 09/08/22 14:21 ANTIBIOTICS AT CAREN.: RECEIVED : 09/09/22 00:26 SITE: R E S U L T S URINE CULTURE,BACTERIAL FINAL 09/10/22 07:56 NO SIGNIFICANT GROWTH. Normal [facility] Comment on above: Performed By: #### C BCDF #### [address] [address] US RENAL BILATon 09-08-2022 US RENAL BILAT Patient Name: DARYN SHAH STUDY: US RENAL BILAT; 09/08/2022 6:46 pm INDICATION: UTI . COMPARISON: Renal ultrasound of 12/08/2019 and a three-phase CT scan of the kidneys done on 01/05/2020. ACCESSION NUMBER(S): [id number] ORDERING CLINICIAN: ANGELIQUE CLARKE TECHNIQUE: Multiple images [...] decisions. Additional Information: Noris. No longer has [facility]. She is doing better and able to [...] palliative care. Has had PT, OT and INDUSTRIAL ENGINEERING TECHNICIAN but none now. . She is realizing [...] and uses bedpan. Plans to go to [facility] and slide over. Has a walker but uses a wheelchair Hyperlipidemia - with DM treating this with Irene. Good this time Lymphedema of leg - exercises have really helped to get this down. She has not been needing the compression wraps. Feels like (more content not included)... Normal [facility] Tobacco Screening.on 023 Adult depression screening assessment Yes [facility] Work Phone: Adult depression screening assessment No [facility] Work Phone: Fall risk assessment a) No falls within the last year [facility] Work Phone: Tobacco use status [facility] b) No [facility] Work Phone: Hemoglobin A1Con 06-01-2022 Glucose [Mass/Vol] 183 mg/dL [facility] Work Phone: HbA1c (Bld) [Mass fraction] 8.0 % Abnormal [facility] Work Phone: Comment on above: Diagnosis of Diabete s-Adults Non-Diabetic: < or = 5.6% Increased risk for developing diabetes: 5.7-6.4% Diagnostic of diabetes: > or = 6.5%. Monitoring of Diabetes Age (y) Therapeutic Goal (%) Adults: >18 <7.0 Pediatrics: 13-18 <7.5 7-12 <8.0 0- 6 7.5-8.5 [place] [employer]. Diabetes Care 33(S1), Apr 2009. Laboratory - Chemistry and C hemistry - challengeon 06-01-2022 Anion gap [Moles/Vol] 13 mmol/L 10 - 20 [facility] Work Phone: Calcium [Mass/Vol] 9.8 mg/dL 8.6 - 10.3 [facility] Work Phone: Chloride [Moles/Vol] 98 mmol/L 98 - 107 [facility] Work Phone: CO2 [Moles/Vol] 29 mmol/L 21 - 32 [facility] Work Phone: Creatinine [Mass/Vol] 0.86 mg/dL See Below [facility] Work Phone: Comment on above: Reference Range: 0.5 0 - 1.05 Glucose [Mass/Vol] 191 mg/dL above high threshold 74 - 99 [facility] Work Phone: [phone] Potassium [Moles/Vol] 4.7 mmol/L 3.5 - 5.3 [facility] Work Phone: [phone] Sodium [Moles/Vol] 135 mmol/L below low threshold 136 - 145 [facility] Work Phone: [phone] Urea nitrogen [Mass/Vol] 24 mg/dL above high threshold 6 - 23 [facility] Work Phone: [phone] Magnesium, Serumon 3 Magnesium [Mass/Vol] 1.62 mg/dL See Below -[facility] Work Phone: Comment on above: Reference Range: 1.6 0 - 2.40 No Panel Informationon 06-01 71 {mL/min/1.73m2} >90 [facility] Work Phone: Comment on above: CALCULATIONS OF HANNAH MATED GFR ARE PERFORMED USING THE 2020 CKD-EPI STUDY REFIT EQUATION WITHOUT THE RACE VARIABLE FOR THE IDMS-TRACEABLE CREATININE METHODS.https://jasn.asnjournals.org/content//A SN.0496782339 Vitamin B12, Serumon 023 Cobalamin (Vitamin B12) [Mass/Vol] 539 pg/mL 211 - 911 [facility] Work Phone: Office Visit (Cardiology)on 05-24-2022 Follow-up visit Diagnoses/Problems Assessed Benign essential hypertension (401.1) (I10) Hyperlipidemia (272.4) (E78.5) Chief Complaint Longstanding persistent atrial fibrillation History of Present [id number]-jjk female with a medical history of morbid [...] (276.8) (E87.6) Internal hemorrhoid, bleeding (455.2) (K64.8) 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 Normal [facility] Tobacco Screening.on 023 Fall risk assessment a) No falls within the last year [employer] Work Phone: Tobacco use status [facility] b) No [employer] Work Phone: Office Visiton 03-07-2022 Follow-up visit [...] Oral Tablet Basic Metabolic Panel; Status:Active; Requested for:[id number]; Start: metFORMIN HCl - 500 MG Oral Tablet; TAKE 1 TABLET TWICE DAILY Hemoglobin A1C; Status:Active; Requested for:06Jun2022; Hyperlipidemia Renew: Rosuvastatin Calcium 10 MG Oral Tablet; Take 1 tablet daily Hypokalemia Renew: Potassium Chloride ER 10 MEQ Oral Capsule Extended Release; TAKE 1 CAPSULE Daily Magnesium deficiency Magnesium, Serum; Status:Active; Requested for:[id number]; Medication management Follow-up visit in 3 months Outpatient Follow-up Status: Hold For - Scheduling Requested for: 07Mar2022 Vitamin D deficiency Vitamin B12, Serum; Status:Active; Requested for:[id number]; Chief Complaint jairck History of Present IllnessNo longer has HH. She is doing better and able to [...] palliative care. Has had PT, OT and INDUSTRIAL ENGINEERING TECHNICIAN but none now. . She is realizing [...] Wakes at hs at times. Still cannot (more content not included)... Normal [facility] Tobacco Screening.on Fall risk assessment a) No falls within the last year [facility] Work Phone: Tobacco use status [facility] b) No [facility] Work Phone: Hemoglobin A1Con 03-01-2022 Glucose [Mass/Vol] 157 mg/dL [facility] Work Phone: HbA1c (Bld) [Mass fraction] 7.1 % Abnormal [facility] Work Phone: Comment on above: Diagnosis of Diabete s-Adults Non-Diabetic: < or = 5.6% Increased risk for developing diabetes: 5.7-6.4% Diagnostic of diabetes: > or = 6.5%. Monitoring of Diabetes Age (y) Therapeutic Goal (%) Adults: >18 <7.0 Pediatrics: 13-18 <7.5 7-12 <8.0 0- 6 7.5-8.5 [place] [employer]. Diabetes Care 33(S1), Apr 2009. Laboratory - Chemistry and C hemistry - challengeon 03-01-2022 Albumin BCP dye [Mass/Vol] 3.7 g/dL 3.4 - 5.0 [facility] Work Phone: ALP [Catalytic activity/Vol] 122 U/L 33 - 136 [facility] Work Phone: ALT With P-5'-P [Catalytic activity/Vol] 8 U/L 7 - 45 [facility] Work Phone: Comment on above: Patients treated wit h Sulfasalazine may generate falsely decreased results for ALT. Anion gap [Moles/Vol] 11 mmol/L 10 - 20 [facility] Work Phone: AST With P-5'-P [Catalytic activity/Vol] 13 U/L 9 - 39 [facility] Work Phone: Bilirubin [Mass/Vol] 0.4 mg/dL 0.0 - 1.2 [facility] Work Phone: Calcium [Mass/Vol] 9.2 mg/dL 8.6 - 10.3 [facility] Work Phone: Chloride [Moles/Vol] 100 mmol/L 98 - 107 [facility] Work Phone: CO2 [Moles/Vol] 29 mmol/L 21 - 32 [facility] Work Phone: Creatinine [Mass/Vol] 0.83 mg/dL See Below [facility] Work Phone: Comment on above: Reference Range: 0.5 0 - 1.05 Glucose [Mass/Vol] 124 mg/dL above high threshold 74 - 99 [facility] Work Phone: Potassium [Moles/Vol] 4.0 mmol/L 3.5 - 5.3 [facility] Work Phone: Protein [Mass/Vol] 6.9 g/dL 6.4 - 8.2 [facility] Work Phone: Sodium [Moles/Vol] 136 mmol/L 136 - 145 [facility] Work Phone: Urea nitrogen [Mass/Vol] 20 mg/dL 6 - 23 [facility] Work Phone: Laboratory - Hematology and Cell countson 03-01-2022 Erythrocyte distribution width (RBC) [Ratio] 15.0 % above high threshold See Below [facility] Work Phone: Comment on above: Reference Range: 11. 5 - 14.5 Hematocrit (Bld) [Volume fraction] 33.5 % below low threshold See Below [facility] Work Phone: Comment on above: Reference Range: 36. 0 - 46.0 Hemoglobin (Bld) [Mass/Vol] 9.5 g/dL below low threshold See Below [facility] Work Phone: Comment on above: Reference Range: 12. 0 - 16.0 MCHC (RBC) [Mass/Vol] 28.4 g/dL below low threshold See Below [facility] Work Phone: Comment on above: Reference Range: 32. 0 - 36.0 MCV (RBC) [Entitic vol] 76 fL below low threshold 80 - 100 [facility] Work Phone: Platelets (Bld) [#/Vol] 309 10*3/uL 150 - 450 [facility] Work Phone: RBC (Bld) [#/Vol] 4.43 {x10E12/L} See Below [facility] Work Phone: Comment on above: Reference Range: 4.0 0 - 5.20 WBC (Bld) [#/Vol] 12.6 10*3/uL above high threshold 4.4 - 11.3 [facility] Work Phone: Lipid Panelon 03-01-2022 Cholesterol [Mass/Vol] 132 mg/dL 0 - 199 [facility] Work Phone: Comment on above: . [...] dosing. Cholesterol in HDL [Mass/Vol] 45.0 mg/dL [facility] Work Phone: Comment on above: . AGE VERY LOW LOW N ORMAL HIGH 0-19 Y < 35 < 40 40-45 ---- 20-24 Y ---- < 40 >45 ---- >24 Y ---- < 40 40-60 >60. Cholesterol in LDL [Mass/Vol] 64 mg/dL 0 - 99 [facility] Work Phone: Comment on above: . NEAR BORD AGE TESS RABLE OPTIMAL HIGH HIGH VERY HIGH 0-19 Y 0 - 109 --- 110-129 >/= 130 ---- 20-24 Y 0 - 119 --- 120-159 >/= 160 ---- >24 Y 0 - 99 100-129 130-159 160-189 >/=190. Cholesterol.total/Chol esterol in HDL [Mass ratio] 2.9 {ratio} [facility] Work Phone: Comment on above: REF VALUESDESIRABLE < 3.4HIGH RISK > 5.0 Triglyceride [Mass/Vol] 115 mg/dL 0 - 149 [facility] Work Phone: Comment on above: . [...] Lipid Panel 23 mg/dL 0 - 40 [facility] Work Phone: Magnesium, Serumon Magnesium [Mass/Vol] 1.50 mg/dL below low threshold See Below [facility] Work Phone: Comment on above: Reference Range: 1.6 0 - 2.40 No Panel Informationon 03-01 74 {mL/min/1.73m2} >90 [facility] Work Phone: Comment on above: CALCULATIONS OF HANNAH MATED GFR ARE PERFORMED USING THE 2020 CKD-EPI STUDY REFIT EQUATION WITHOUT THE RACE VARIABLE FOR THE IDMS-TRACEABLE CREATININE METHODS.https://jasn.asnjournals.org/content/early//A .3044964873 Vitamin D 25-Hydroxyon 03-01 25-hydroxyvitamin D3 [Mass/Vol] 27 ng/mL Abnormal -[facility] Work Phone: Comment on above: .DEFICIENCY: [...] Status: Hold For - Scheduling Requested for: [id number] Stage 3 chronic kidney disease due to [...] 03:30 PM , for a telehealth visit. pretty History of Present IllnessNo longer has [facility]. Asthma - has been good on no [...] palliative care. Has had PT, OT and INDUSTRIAL ENGINEERING TECHNICIAN. She is realizing that she cannot do [...] with DM treating this with Irene. Good in June Lymphedema of leg - [...] and will (more content not included)... Normal [employer] Tobacco Screening.on 022 Fall risk assessment a) No falls within the last year [facility] Work Phone: Tobacco use status [facility] b) No [facility] Work Phone: Laboratory - Chemistry and C hemistry - challengeon 12-01-2021 Anion gap [Moles/Vol] 13 mmol/L 10 - 20 [facility] Work Phone: Calcium [Mass/Vol] 9.2 mg/dL 8.6 - 10.3 [facility] Work Phone: Chloride [Moles/Vol] 98 mmol/L 98 - 107 [facility] Work Phone: CO2 [Moles/Vol] 29 mmol/L 21 - 32 [facility] Work Phone: Creatinine [Mass/Vol] 0.88 mg/dL See Below [facility] Work Phone: Comment on above: Reference Range: 0.5 0 - 1.05 Glucose [Mass/Vol] 143 mg/dL above high threshold 74 - 99 [facility] Work Phone: [phone] Potassium [Moles/Vol] 4.0 mmol/L 3.5 - 5.3 [facility] Work Phone: [phone] Sodium [Moles/Vol] 136 mmol/L 136 - 145 [facility] Work Phone: Urea nitrogen [Mass/Vol] 20 mg/dL 6 - 23 [facility] Work Phone: No Panel Informationon 12-01 69 {mL/min/1.73m2} >90 [facility] Work Phone: Comment on above: CALCULATIONS OF HANNAH MATED GFR ARE PERFORMED USING THE 2020 CKD-EPI STUDY REFIT EQUATION WITHOUT THE RACE VARIABLE FOR THE IDMS-TRACEABLE CREATININE METHODS.https://jasn.asnjournals.org/content///A SN.3536716155 Cholesterol, Serumon 022 Cholesterol [Mass/Vol] 129 mg/dL 0 - 199 [facility] Work Phone: Comment on above: . [...] Hemoglobin A1Con 09-14-2021 Glucose [Mass/Vol] 148 mg/dL [facility] Work Phone: HbA1c (Bld) [Mass fraction] 6.8 % Abnormal [facility] Work Phone: Comment on above: Diagnosis of Diabete s-Adults Non-Diabetic: < or = 5.6% Increased risk for developing diabetes: 5.7-6.4% Diagnostic of diabetes: > or = 6.5%. Monitoring of Diabetes Age (y) Therapeutic Goal (%) Adults: >18 <7.0 Pediatrics: 13-18 <7.5 7-12 <8.0 0- 6 7.5-8.5 [place] [employer]. Diabetes Care 33(S1), Apr 2009. Laboratory - Chemistry and C hemistry - challengeon 09-14-2021 Albumin BCP dye [Mass/Vol] 3.7 g/dL 3.4 - 5.0 [facility] Work Phone: ALP [Catalytic activity/Vol] 97 U/L 33 - 136 [facility] Work Phone: ALT With P-5'-P [Catalytic activity/Vol] 13 U/L 7 - 45 [facility] Work Phone: Comment on above: Patients treated wit h Sulfasalazine may generate falsely decreased results for ALT. Anion gap [Moles/Vol] 12 mmol/L 10 - 20 [facility] Work Phone: AST With P-5'-P [Catalytic activity/Vol] 15 U/L 9 - 39 [facility] Work Phone: Bilirubin [Mass/Vol] 0.3 mg/dL 0.0 - 1.2 [facility] Work Phone: Calcium [Mass/Vol] 9.1 mg/dL 8.6 - 10.3 [facility] Work Phone: Chloride [Moles/Vol] 100 mmol/L 98 - 107 [facility] Work Phone: CO2 [Moles/Vol] 29 mmol/L 21 - 32 [facility] Work Phone: Creatinine [Mass/Vol] 0.81 mg/dL See Below [facility] Work Phone: Comment on above: Reference Range: 0.5 0 - 1.05 Glucose [Mass/Vol] 96 mg/dL 74 - 99 [facility] Work Phone: Potassium [Moles/Vol] 3.1 mmol/L below low threshold 3.5 - 5.3 [facility] Work Phone: Protein [Mass/Vol] 7.0 g/dL 6.4 - 8.2 [facility] Work Phone: Sodium [Moles/Vol] 138 mmol/L 136 - 145 [facility] Work Phone: Urea nitrogen [Mass/Vol] 24 mg/dL above high threshold 6 - 23 [facility] Work Phone: Laboratory - Drug toxicology on 09-14-2021 Amphetamines Screen Ql (U) Negative NEGATIVE [facility] Work Phone: Comment on above: CUTOFF LEVEL: 500 NG /ML Cross-reactivity has been reported with high concentrations of the following drugs: buproprion, chloroquine, chlorpromazine, ephedrine, mephentermine, fenfluramine, phentermine, phenylpropanolamine, pseudoephedrine, and propranolol. Barbiturates Screen Ql (U) Negative NEGATIVE [facility] Work Phone: Comment on above: CUTOFF LEVEL: 200 NG /ML Benzodiazepines Ql (U) Negative NEGATIVE [facility] Work Phone: Comment on above: CUTOFF LEVEL: 200 NG /ML Benzoylecgonine Screen Ql (U) Negative NEGATIVE [facility] Work Phone: Comment on above: CUTOFF LEVEL: 150 NG /ML Cannabinoids Screen Ql (U) Negative NEGATIVE [facility] Work Phone: Comment on above: CUTOFF LEVEL: 50 NG/ ML Methadone Screen Ql (U) Negative NEGATIVE [facility] Work Phone: Comment on above: CUTOFF LEVEL: 150 NG /ML The metabolite G-wtmjq-smotjturmiuglx (LAAM) is not detected by this method in concentrations that would be found in the urine of patients on LAAM therapy. Opiates Screen Ql (U) Negative NEGATIVE [facility] Work Phone: Comment on above: CUTOFF LEVEL: 300 NG /ML The opiate screen does not detect fentanyl, meperidine, or tramadol. Oxycodone is not consistently detected (refer to Oxycodone Screen, Urine result). oxyCODONE+oxyMORphone Screen Ql (U) Negative NEGATIVE [facility] Work Phone: Comment on above: CUTOFF LEVEL: 100 NG /ML This test will accurately detect both oxycodone and oxymorphone. Phencyclidine Ql (U) Negative NEGATIVE [facility] Work Phone: Comment on above: CUTOFF LEVEL: 25 NG/ ML Cross-reactivity has been reported with dextromethorphan. No Panel Informationon 09-14 76 {mL/min/1.73m2} >90 [facility] Work Phone: Comment on above: CALCULATIONS OF HANNAH MATED GFR ARE PERFORMED USING THE 2020 CKD-EPI STUDY REFIT EQUATION WITHOUT THE RACE VARIABLE FOR THE IDMS-TRACEABLE CREATININE METHODS.https://jasn.asnjournals.org/content/early/A .4038243743 Negative NEGATIVE [facility] Work Phone: Comment on above: CUTOFF LEVEL: 1 NG/M L The performance characteristics of this test have been determined by the individual laboratory site where testing is performed. This test has not been cleared or approved by the FDA; however, the FDA has determined that such clearance is not necessary. SEE BELOW [facility] Work Phone: Comment on above: Drug [...] mg/dL above high threshold 0 - 149 -[facility] Work Phone: Comment on above: . 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 Blood work Status: Hold For - Scheduling Requested for: 01Sep2021 Call Results To: : [phone] if urgent Fax Results To: : [phone] Dr Mcdaniel Lab Frequency: : every 3-6 months Lab Draw Start Date: : 06Sep2021 Specific Labs To Be Drawn : CMP, cholesterol, TG, A1C ,urine drug screen Labs: Must have a SN ordered to have labs drawn : Yes Home Health Aide: Must have ordered SN, PT or ST to have INDUSTRIAL ENGINEERING TECHNICIAN : No Jute Bag Clipper: Must have ordered SN, PT or ST to have PUBLIC HEALTH PHYSICIAN : No Occupational Therapy: Must have ordered [...] Assess, Vital Signs, Disease Teaching : Yes Usp: : Yes Date of Nzmr-wm-Zpjc Encounter: (Must be 90 days prior to start of care, if Telehealth must be Audio/Visual). : [id number] Homebound Status Reason: : Impaired mobility, instability, balance issues Homebound Status (Patient must be homebound if they have Medicare or commercial insurance, Not required for Medicaid) : Yes Requested Start of Care Date : >48 Hours Provider Impressions [facility] needed to draw blood and other labs [...] 11:30 AM , for a telehealth visit. [facility] certification F2F History of Present IllnessHas changed [facility] companies and needs new certification. She continues [...] insurance would like to get someone for [facility]. Has had PT, OT and INDUSTRIAL ENGINEERING TECHNICIAN. She is realizing that she cannot do [...] or bu (more content not included)... Normal [facility] Tobacco Screening.on 022 Fall risk assessment a) No falls within the last [facility] Work Phone: Tobacco use status CP b) No -[facility] Work Phone: Laboratory - Molecular patho logyon 07-25-2021 Noninvasive colorectal cancer DNA and occult blood screening Jd (Stl) [Interp] Negative Negative [facility] Work Phone: Comment on above: [employer] (CLIA #:[id number])[address] [place] [address] MILLA PICHARDO , Clinical Laboratory Medical DirectorNEGATIVE [...] Judd et al, N Engl J Med 2014;370(14):2943-4850) The normal value (reference range) for this assay is negative.COLOGUARD RE-SCREENING RECOMMENDATION: Periodic colorectal cancer screening is an important part of preventive healthcare for asymptomatic individuals at average risk for colorectal cancer. Following a negative Cologuard result, the [place] [employer] and U.S. Multi-Society Task Force screening guidelines recommend a Cologuard re-screening interval of 3 years. References: [place] [employer] Guideline for Colorectal Cancer Screening: https://www.cancer.org/cancer/rdfdt-ncrqpe-mnjvkp/detection-casi gnosis-staging/acs-recommendations.html.; Quoc SY, Berna CR, Gaetano CHANCE, Colorectal Cancer Screening: Recommendations for Physicians and Patients from the U.S. Multi-Society Task Force on Colorectal Cancer Screening , Am J Gastroenterology 2017; 112:0153-1410.TEST DESCRIPTION: Composite algorithmic analysis of stool DNA-biomarkers [...] screened with both Cologuard and colonoscopy. (Sindhu Delgado. et al, N Engl J Med 2014;370(14):2141-5982.) Cologuard may produce a false negative or false positive result (no colorectal cancer or precancerous polyp present at colonoscopy follow up). A negative Cologuard test result does not guarantee the absence of CRC or advanced adenoma (pre-cancer). The current Cologuard screening interval is every 3 years. ([place] [employer] and U.S. Multi-Society Task Force). Cologuard performance data in a 10,000 patient pivotal study using colonoscopy as the reference method can be accessed at the following location: [email or web address]. Additional description of the Cologuard test process, warnings and precautions can be found at [email or web address]. Laboratory - Molecular patho logyon 06-10-2021 Noninvasive colorectal cancer DNA and occult blood screening Jd (Stl) [Interp] Cancelled - Duplicate Order -[facility] Work Phone: Office Visiton 06-09-2021 Follow-up [...] 01:00 PM , for a telehealth visit. [facility] Adult Risk Screening Depression/Suicide Screening: During the [...] no longer. Has had PT, OT and INDUSTRIAL ENGINEERING TECHNICIAN. Done with all of that. She is [...] few mon (more content not included)... Normal digitalbox Tobacco Screening.on 022 Adult depression screening assessment Yes [facility] Work Phone: Fall risk assessment a) No falls within the last year [facility] Work Phone: Tobacco use status [facility] b) No [facility] Work Phone: Hemoglobin A1Con 06-07-2021 Glucose [Mass/Vol] 128 mg/dL [facility] Work Phone: HbA1c (Bld) [Mass fraction] 6.1 % Abnormal [facility] Work Phone: Comment on above: Diagnosis of Diabete s-Adults Non-Diabetic: < or = 5.6% Increased risk for developing diabetes: 5.7-6.4% Diagnostic of diabetes: > or = 6.5%. Monitoring of Diabetes Age (y) Therapeutic Goal (%) Adults: >18 <7.0 Pediatrics: 13-18 <7.5 7-12 <8.0 0- 6 7.5-8.5 [place] [employer]. Diabetes Care 33(S1), Apr 2009. Laboratory - Chemistry and C hemistry - challengeon 06-07-2021 Albumin BCP dye [Mass/Vol] 3.5 g/dL 3.4 - 5.0 [facility] Work Phone: ALP [Catalytic activity/Vol] 96 U/L 33 - 136 [facility] Work Phone: [phone] ALT With P-5'-P [Catalytic activity/Vol] 12 U/L 7 - 45 [facility] Work Phone: [phone] Comment on above: Patients treated wit h Sulfasalazine may generate falsely decreased results for ALT. Anion gap [Moles/Vol] 15 mmol/L 10 - 20 [facility] Work Phone: [phone] AST With P-5'-P [Catalytic activity/Vol] 17 U/L 9 - 39 [facility] Work Phone: Bilirubin [Mass/Vol] 0.3 mg/dL 0.0 - 1.2 [facility] Work Phone: Calcium [Mass/Vol] 9.3 mg/dL 8.6 - 10.3 [facility] Work Phone: Chloride [Moles/Vol] 97 mmol/L below low threshold 98 - 107 [facility] Work Phone: [phone] CO2 [Moles/Vol] 28 mmol/L 21 - 32 [facility] Work Phone: Creatinine [Mass/Vol] 0.99 mg/dL See Below [facility] Work Phone: [phone] Comment on above: Reference Range: 0.5 0 - 1.05 Glucose [Mass/Vol] 239 mg/dL above high threshold 74 - 99 [facility] Work Phone: Potassium [Moles/Vol] 4.1 mmol/L 3.5 - 5.3 [facility] Work Phone: Protein [Mass/Vol] 6.7 g/dL 6.4 - 8.2 [facility] Work Phone: Sodium [Moles/Vol] 136 mmol/L 136 - 145 [facility] Work Phone: Urea nitrogen [Mass/Vol] 22 mg/dL 6 - 23 [facility] Work Phone: Laboratory - Hematology and Cell countson 06-07-2021 Erythrocyte distribution width (RBC) [Ratio] 15.8 % above high threshold See Below [facility] Work Phone: Comment on above: Reference Range: 11. 5 - 14.5 Hematocrit (Bld) [Volume fraction] 35.8 % below low threshold See Below [facility] Work Phone: Comment on above: Reference Range: 36. 0 - 46.0 Hemoglobin (Bld) [Mass/Vol] 11.3 g/dL below low threshold See Below [facility] Work Phone: Comment on above: Reference Range: 12. 0 - 16.0 MCHC (RBC) [Mass/Vol] 31.4 g/dL below low threshold See Below [facility] Work Phone: Comment on above: Reference Range: 32. 0 - 36.0 MCV (RBC) [Entitic vol] 85 fL 80 - 100 [facility] Work Phone: Platelets (Bld) [#/Vol] 313 10*3/uL 150 - 450 [facility] Work Phone: RBC (Bld) [#/Vol] 4.23 {x10E12/L} See Below [facility] Work Phone: Comment on above: Reference Range: 4.0 0 - 5.20 WBC (Bld) [#/Vol] 13.8 10*3/uL above high threshold 4.4 - 11.3 [facility] Work Phone: Lipid Panelon 06-07-2021 Cholesterol [Mass/Vol] 193 mg/dL 0 - 199 [facility] Work Phone: Comment on above: . [...] dosing. Cholesterol in HDL [Mass/Vol] 45.0 mg/dL [facility] Work Phone: Comment on above: . AGE VERY LOW LOW N ORMAL HIGH 0-19 Y < 35 < 40 40-45 ---- 20-24 Y ---- < 40 >45 ---- >24 Y ---- < 40 40-60 >60. Cholesterol in LDL [Mass/Vol] 108 mg/dL above high threshold 0 - 99 [facility] Work Phone: Comment on above: . NEAR BORD AGE TESS RABLE OPTIMAL HIGH HIGH VERY HIGH 0-19 Y 0 - 109 --- 110-129 >/= 130 ---- 20-24 Y 0 - 119 --- 120-159 >/= 160 ---- >24 Y 0 - 99 100-129 130-159 160-189 >/=190. Cholesterol.total/Chol esterol in HDL [Mass ratio] 4.3 {ratio} [facility] Work Phone: Comment on above: REF VALUESDESIRABLE < 3.4HIGH RISK > 5.0 Triglyceride [Mass/Vol] 198 mg/dL above high threshold 0 - 149 [facility] Phone: Comment on above: . [...] Lipid Panel 40 mg/dL 0 - 40 [facility] Work Phone: No Panel Informationon 06-07 60 {mL/min/1.73m2} >90 [facility] Work Phone: Comment on above: CALCULATIONS OF HANNAH MATED GFR ARE PERFORMED USING THE 2020 CKD-EPI STUDY REFIT EQUATION WITHOUT THE RACE VARIABLE FOR THE IDMS-TRACEABLE CREATININE METHODS.https://jasn.asnjournals.org/content///A SN.0873059634 Vitamin B12, Serumon 022 Cobalamin (Vitamin B12) [Mass/Vol] 697 pg/mL 211 - 911 [facility] Work Phone: Vitamin D 25-Hydroxyon 06-07 25-hydroxyvitamin D3 [Mass/Vol] 30 ng/mL [facility] Work Phone: Comment on above: .DEFICIENCY: < 20 NG /MLINSUFFICIENCY: 20-29 NG/MLSUFFICIENCY: 30-100 NG/MLTHIS ASSAY ACCURATELY QUANTIFIES THE SUM OFVITAMIN D3, 25-HYDROXY AND VIT D2,25-HYDROXY. Laboratory - Chemistry and C hemistry - challengeon 02-04-2021 Creatinine (Body fld) [Mass/Vol] 65.0 mg/dL [facility] Work Phone: Comment on above: A urine creatinine r esult >= 20 mg/dL is considered valid without suspicion of dilution. Samples with results below this range will automatically reflex to specific gravity testing to verify specimen integrity. Laboratory - Drug toxicology on 02-04-2021 1-Hydroxymidazolam Confirm (U) [Mass/Vol] <25 Cutoff <25 [facility] Work Phone: 3-Ralbaxczhl-0,5-Dimet hyl-3,3-Diphenylpyrrol idine (EDDP) Confirm (U) [Mass/Vol] <25 Cutoff <25 [facility] Work Phone: Comment on above: The [...] (6-EDDIE) Confirm (U) [Mass/Vol] <25 Cutoff <25 [facility] Work Phone: 7-Aminoclonazepam Confirm (U) [Mass/Vol] <25 Cutoff <25 [facility] Work Phone: Alpha hydroxyalprazolam Confirm (U) [Mass/Vol] <25 Cutoff <25 [facility] Work Phone: ALPRAZolam Confirm (U) [Mass/Vol] <25 Cutoff <25 [facility] Work Phone: Amphetamines Screen Ql (U) Negative NEGATIVE [facility] Work Phone: Comment on above: CUTOFF LEVEL: 500 NG /ML Cross-reactivity has been reported with high concentrations of the following drugs: buproprion, chloroquine, chlorpromazine, ephedrine, mephentermine, fenfluramine, phentermine, phenylpropanolamine, pseudoephedrine, and propranolol. Barbiturates Screen Ql (U) Negative NEGATIVE [facility] Work Phone: Comment on above: CUTOFF LEVEL: 200 NG /ML Benzoylecgonine Screen Ql (U) Negative NEGATIVE [facility] Work Phone: Comment on above: CUTOFF LEVEL: 150 NG /ML Cannabinoids Screen Ql (U) Positive Abnormal NEGATIVE [facility] Work Phone: Comment on above: CUTOFF LEVEL: 50 NG/ ML Carboxy tetrahydrocannabinol (U) [Mass/Vol] >500 [facility] Work Phone: Comment on above: INTERPRETIVE INFORMA TION: THC Metabolite, Urine, QuantitativeMethodology: Quantitative Liquid Chromatography-Tandem Mass SpectrometryPositive cutoff: 15 ng/mLFor medical purposes only; not valid for forensic use.The drug analyte detected in this assay, 9-carboxy THC, is a metabolite of juvgv-2-hrhejixtyflabjlwxjcu (THC). Detection of 9-carboxy THC suggests use [...] developed and its performance characteristics determined by [facility]. It has not been cleared or approved by the US Food and Drug Administration. This test was performed in a CLIA certified laboratory and is intended for clinical purposes.Performed By: [email or web address] [place] [address] [id number] Director: Pearl Deng MD [email or web address] Confirm (U) [Mass/Vol] <25 Cutoff <25 [facility] Work Phone: clonazePAM Confirm (U) [Mass/Vol] <25 Cutoff <25 [facility] Work Phone: Codeine Confirm (U) [Mass/Vol] <50 Cutoff <50 [facility] Work [facility]: diazePAM Confirm (U) [Mass/Vol] <25 Cutoff <25 [facility] Work Phone: fentaNYL Confirm (U) [Mass/Vol] <2.5 Cutoff<2.5 [facility] Work Phone: HYDROcodone Confirm (U) [Mass/Vol] <25 Cutoff <25 [facility] Work Phone: HYDROmorphone Confirm (U) [Mass/Vol] <25 Cutoff <25 [facility] Work Phone: LORazepam Confirm (U) [Mass/Vol] 544 ng/mL Abnormal Cutoff <25 [facility] Work Phone: Comment on above: Consistent with use of a drug containing lorazepam, such as Ativan. Methadone Confirm (U) [Mass/Vol] <25 Cutoff <25 [facility] Work Phone: Midazolam Confirm (U) [Mass/Vol] <25 Cutoff <25 [facility] Work Phone: Morphine Confirm (U) [Mass/Vol] <50 Cutoff <50 [facility] Work Phone: Nordiazepam Confirm (U) [Mass/Vol] <25 Cutoff <25 [facility] Work Phone: Norfentanyl Confirm (U) [Mass/Vol] <2.5 Cutoff<2.5 [facility] Work Phone: Comment on above: The [...] Norhydrocodone Confirm (U) [Mass/Vol] <25 Cutoff <25 [facility] Work Phone: Noroxycodone Confirm (U) [Mass/Vol] <25 Cutoff <25 [facility] Work Phone: Nortramadol (U) [Mass/Vol] <50 Cutoff <50 [facility] Work Phone: Comment on above: The [...] Oxazepam Confirm (U) [Mass/Vol] <25 Cutoff <25 -[facility] Work Phone: oxyCODONE Confirm (U) [Mass/Vol] <25 Cutoff <25 [facility] Work Phone: oxyMORphone Confirm (U) [Mass/Vol] <25 Cutoff <25 -[facility] Work Phone: Comment on above: The [...] laboratory testing. Phencyclidine Ql (U) Negative NEGATIVE [facility] Work Phone: Comment on above: CUTOFF LEVEL: 25 NG/ ML Cross-reactivity has been reported with dextromethorphan. Temazepam Confirm (U) [Mass/Vol] <25 Cutoff <25 [facility] Work Phone: Comment on above: The [...] traMADol Confirm (U) [Mass/Vol] <50 Cutoff <50 -[facility] Work Phone: Zolpidem (U) [Mass/Vol] <25 Cutoff <25 [facility] Work Phone: No Panel Informationon 02-04 SEE BELOW [facility] Work Phone: Comment on above: Drug [...] the laboratory medical directors. <25 Cutoff <25 [facility] Work Phone: Comment on above: The [...] high complexity clinical laboratory testing. Tobacco Screening.on Fall risk assessment b) One or more fall s in the last year [facility] Work Phone: Tobacco use status [facility] b) No [facility] Work Phone: Laboratory - Molecular patho logyon 11-05-2020 Noninvasive colorectal cancer DNA and occult blood screening Dj (Stl) [Interp] Cancelled - Duplicate Order [facility] Work Phone: Tobacco Screening.on 021 Fall risk assessment b) One or more fall s in the last year [facility] Work Phone: Tobacco use status [facility] b) No [facility] Work Phone: Tobacco Screening.on 021 Fall risk assessment b) One or more fall s in the last year [facility] Work Phone: Tobacco use status [facility] b) No [facility] Work Phone: HEMOGLOBIN A1Con 10-21-2020 Glucose [Mass/Vol] 143 mg/dL Normal [facility] Comment on above: Performed By: #### H BA1E #### [facility] [address] [place] [address] HbA1c (Bld) [Mass fraction] 6.6 % Normal [facility] Comment on above: Result Comment: Diag nosis of Diabetes-Adults Non-Diabetic: < or = 5.6% Increased risk for developing diabetes: 5.7-6.4% Diagnostic of diabetes: > or = 6.5% . Monitoring of Diabetes Age (y) Therapeutic Goal (%) Adults: >18 <7.0 Pediatrics: 13-18 <7.5 7-12 <8.0 0- 6 7.5-8.5 [place] [employer]. Diabetes Care 33(S1), Apr 2009. Performed By: #### H BA1E #### [facility] [address] [place] [address] CBCon 10-20-2020 Erythrocyte distribution width (RBC) [Ratio] 15.2 % High 11.5 - 14.5 [facility] Comment on above: Performed By: #### C BC #### [address] [id number] Hematocrit (Bld) [Volume fraction] 42.4 % Normal 36.0 - 46.0 [facility] Comment on above: Performed By: #### C BC #### [address] [id number] Hemoglobin (Bld) [Mass/Vol] 12.8 g/dL Normal 12.0 - 16.0 [facility] Comment on above: Performed By: #### C BC #### [address] [id number] MCHC (RBC) [Mass/Vol] 30.2 g/dL Low 32.0 - 36.0 [facility] Comment on above: Performed By: #### C BC #### [address] [id number] MCV (RBC) [Entitic vol] 85 fL Normal 80 - 100 [facility] Comment on above: Performed By: #### C BC #### [address] [id number] Platelets (Bld) [#/Vol] 306 10*3/uL Normal 150 - 450 [facility] Comment on above: Performed By: #### C BC #### [address] [id number] RBC 4.97 x10E12/L Normal 4.00 - 5.20 [facility] Comment on above: Performed By: #### C BC #### [address] [id number] WBC (Bld) [#/Vol] 12.9 10*3/uL High 4.4 - 11.3 [facility] Comment on above: Performed By: #### C BC #### [address] [id number] Hemoglobin A1Con 10-20-2020 Glucose [Mass/Vol] 143 mg/dL [facility] Work Phone: HbA1c (Bld) [Mass fraction] 6.6 % [facility] Work Phone: Comment on above: Diagnosis of Diabete s-Adults Non-Diabetic: < or = 5.6% Increased risk for developing diabetes: 5.7-6.4% Diagnostic of diabetes: > or = 6.5%. Monitoring of Diabetes Age (y) Therapeutic Goal (%) Adults: >18 <7.0 Pediatrics: 13-18 <7.5 7-12 <8.0 0- 6 7.5-8.5 [place] [employer]. Diabetes Care 33(S1), Apr 2009. Laboratory - Hematology and Cell countson 10-20-2020 Erythrocyte distribution width (RBC) [Ratio] 15.2 % above high threshold See Below [facility] Work Phone: Comment on above: Reference Range: 11. 5 - 14.5 Hematocrit (Bld) [Volume fraction] 42.4 % See Below [facility] Work Phone: Comment on above: Reference Range: 36. 0 - 46.0 Hemoglobin (Bld) [Mass/Vol] 12.8 g/dL See Below [facility] Work Phone: [phone] Comment on above: Reference Range: 12. 0 - 16.0 MCHC (RBC) [Mass/Vol] 30.2 g/dL below low threshold See Below [facility] Work Phone: [phone] Comment on above: Reference Range: 32. 0 - 36.0 MCV (RBC) [Entitic vol] 85 fL 80 - 100 [facility] Work Phone: [phone] Platelets (Bld) [#/Vol] 306 10*3/uL 150 - 450 [facility] Work Phone: [phone] RBC (Bld) [#/Vol] 4.97 {x10E12/L} See Below [facility] Work Phone: Comment on above: Reference Range: 4.0 0 - 5.20 WBC (Bld) [#/Vol] 12.9 10*3/uL above high threshold 4.4 - 11.3 [facility] Work Phone: MAGNESIUMon 10-20-2020 Magnesium [Mass/Vol] 1.50 mg/dL Low 1.60 - 2.40 [facility] Comment on above: Performed By: #### M G #### [address] [id number] Magnesium, Serumon Magnesium [Mass/Vol] 1.50 mg/dL below low threshold See Below [facility] Work Phone: Comment on above: Reference Range: 1.6 0 - 2.40 RENAL FUNCTION PANELon 10-20 Albumin [Mass/Vol] 4.0 g/dL Normal 3.4 - 5.0 [facility] Comment on above: Performed By: #### R ENAL #### [address] [id number] Anion gap [Moles/Vol] 14 mmol/L Normal 10 - 20 [facility] Comment on above: Performed By: #### R ENAL #### [address] [id number] Calcium [Mass/Vol] 9.4 mg/dL Normal 8.6 - 10.3 [facility] Comment on above: Performed By: #### R ENAL #### [address] [id number] Chloride [Moles/Vol] 98 mmol/L Normal 98 - 107 [facility] Comment on above: Performed By: #### R ENAL #### [address] [id number] Creatinine [Mass/Vol] 0.97 mg/dL Normal 0.50 - 1.05 [facility] Comment on above: Performed By: #### R ENAL #### [address] [id number] GFR- AM. 68 mL/min/1.73m2 Normal >60 [facility] Comment on above: Result Comment: CALC ULATIONS OF ESTIMATED GFR ARE PERFORMED USING THE MDRD STUDY EQUATION FOR THE IDMS-TRACEABLE CREATININE METHODS. CLIN CHEM 2007;53:766-72 Performed By: #### R ENAL #### [address] [id number] GFR-NON AM. 56 mL/min/1.73m2 Abnormal >60 [facility] Comment on above: Performed By: #### R ENAL #### [address] [id number] Glucose [Mass/Vol] 79 mg/dL Normal 74 - 99 [facility] Comment on above: Performed By: #### R ENAL #### [address] [id number] HCO3 (Bld) [Moles/Vol] 30 mmol/L Normal 21 - 32 [facility] Comment on above: Performed By: #### R ENAL #### [address] [id number] Phosphate [Mass/Vol] 3.3 mg/dL Normal 2.5 - 4.9 [facility] Comment on above: Result Comment: The performance characteristics of phosphorus testing in heparinized plasma have been validated by the individual laboratory site where testing is performed. Testing on heparinized plasma is not approved by the FDA; however, such approval is not necessary. Performed By: #### R ENAL #### [facility] [address], [place] [id number] Potassium [Moles/Vol] 4.2 mmol/L Normal 3.5 - 5.3 [facility] Comment on above: Performed By: #### R ENAL #### [facility] [address], [place] [id number] Sodium [Moles/Vol] 138 mmol/L Normal 136 - 145 [facility] Comment on above: Performed By: #### R ENAL #### [facility] [address], [place] [id number] Urea nitrogen [Mass/Vol] 20 mg/dL Normal 6 - 23 [facility] Comment on above: Performed By: #### R ENAL #### [facility] [address], [place] [id number] Renal Function Panelon 10-20 Albumin BCP dye [Mass/Vol] 4.0 g/dL 3.4 - 5.0 [facility] Work Phone: Anion gap [Moles/Vol] 14 mmol/L 10 - 20 [facility] Work Phone: Calcium [Mass/Vol] 9.4 mg/dL 8.6 - 10.3 [facility] Work Phone: Chloride [Moles/Vol] 98 mmol/L 98 - 107 [facility] Work Phone: CO2 [Moles/Vol] 30 mmol/L 21 - 32 [facility] Work Phone: Creatinine [Mass/Vol] 0.97 mg/dL See Below [facility] Work Phone: Comment on above: Reference Range: 0.5 0 - 1.05 Glucose [Mass/Vol] 79 mg/dL 74 - 99 [facility] Work Phone: Phosphate [Mass/Vol] 3.3 mg/dL 2.5 - 4.9 [facility] Work Phone: Comment on above: The performance klaus acteristics of phosphorus testing in heparinized plasma have been validated by the individual laboratory site where testing is performed. Testing on heparinized plasma is not approved by the FDA; however, such approval is not necessary. Potassium [Moles/Vol] 4.2 mmol/L 3.5 - 5.3 [facility] Work Phone: Sodium [Moles/Vol] 138 mmol/L 136 - 145 [facility] Work Phone: Urea nitrogen [Mass/Vol] 20 mg/dL 6 - 23 [facility] Work Phone: Renal Function Panel 68 {mL/min/1.73m2} >60 [facility] Work Phone: Comment on above: CALCULATIONS OF HANNAH MATED GFR ARE PERFORMED USING THE MDRD STUDY EQUATION FOR THE IDMS-TRACEABLE CREATININE METHODS. CLIN CHEM 2007;53:766-72 Renal Function Panel 56 {mL/min/1.73m2} Abnormal >60 [facility] Work Phone: VITAMIN D, 25-HYDROXYon 10-07 VITAMIN D, 25-HYDROXY 20 ng/mL Abnormal [facility] Comment on above: Result Comment: . DEFICIENCY: < 20 NG/ML INSUFFICIENCY: 20-29 NG/ML SUFFICIENCY: 30-100 NG/ML THIS ASSAY ACCURATELY QUANTIFIES THE SUM OF VITAMIN D3, 25-HYDROXY AND VIT D2,25-HYDROXY. Performed By: #### V TDOH #### [address] [id number] Vitamin D 25-Hydroxyon 10-20 25-hydroxyvitamin D3 [Mass/Vol] 20 ng/mL Abnormal [facility] Work Phone: Comment on above: .DEFICIENCY: < 20 NG /MLINSUFFICIENCY: 20-29 NG/MLSUFFICIENCY: 30-100 NG/MLTHIS ASSAY ACCURATELY QUANTIFIES THE SUM OFVITAMIN D3, 25-HYDROXY AND VIT D2,25-HYDROXY. Tobacco Screening.on 021 Fall risk assessment b) One or more fall s in the last year [facility] Work Phone: Tobacco use status CPHS b) No [facility] Work Phone: Metabolic Panelon 12-08-2019 Anion gap [Moles/Vol] 13 mmol/L 10 - 20 [facility] [place] [address] DO Work Phone: Calcium [Mass/Vol] 9.1 mg/dL 8.6 - 10.3 [facility] [place] [address] DO Work Phone: Chloride [Moles/Vol] 99 mmol/L 98 - 107 [facility] [place] [address] DO Work Phone: CO2 [Moles/Vol] 26 mmol/L 21 - 32 [facility] [place] [address] DO Work Phone: Creatinine [Mass/Vol] 1.14 mg/dL above high threshold See Below [facility] [place] [address] DO Work Phone: Comment on above: Reference Range: 0.5 0 - 1.05 Glucose [Mass/Vol] 153 mg/dL above high threshold 74 - 99 [facility] [place] [address] DO Work Phone: Potassium [Moles/Vol] 3.8 mmol/L 3.5 - 5.3 [facility] [place] [address] [place] Work Phone: Sodium [Moles/Vol] 134 mmol/L below low threshold 136 - 145 [facility] [place] [address] DO Work Phone: Urea nitrogen [Mass/Vol] 32 mg/dL above high threshold 6 - 23 [facility] [place] [address] DO Work Phone: Otheron 12-08-2019 57 {mL/min/1.73m2} Abnormal >60 [facility] [place] [address] DO Work Phone: Comment on above: CALCULATIONS OF HANNAH MATED GFR ARE PERFORMED USING THE MDRD STUDY EQUATION FOR THE IDMS-TRACEABLE CREATININE METHODS. CLIN CHEM 2007;53:766-72 47 {mL/min/1.73m2} Abnormal >60 [facility] [place] [address] DO Work Phone: US Kidney - bilateral Please click on th e link to view the study images Normal -[facility] [place] [address] DO Work Phone: Total Protein, Urine Spoton 12-08-2019 Creatinine (U) [Mass/Vol] 162.0 mg/dL See Below -[facility] [place] [address] DO Work Phone: Comment on above: Reference Range: 20. 0 - 320.0 Protein (U) [Mass/Vol] 44 mg/dL above hig h threshold 5 - 24 -[facility] [place] [address] DO Work Phone: Protein/Creatinine (U) [Ratio] 0.27 {mg/mg_Creat} above high threshold See Below [place] [address] DO Work Phone: Comment on above: Reference Range: 0.0 0 - 0.17 Uric Acid, Serumon 0 Urate [Mass/Vol] 8.6 mg/dL above high threshold 2.3 - 6.7 [facility] [place] [address] DO Work Phone: Comment on above: Venipuncture immedia tely after or during the administration of Metamizole may lead to falsely low results. Testing should be performed immediately prior to Metamizole dosing. Urinalysison 12-08-2019 Appearance (U) HAZY CLEAR [facility]-Nephrol [facility] 3 DO Work Phone: [phone] Color (U) Yellow See Below [facility] 3 DO Work Phone: [phone] Comment on above: Reference Range: STR AW,YELLOW Glucose Ql (U) Negative NEGATIVE [facility] 3 DO Work Phone: [phone] Ketones Ql (U) Negative NEGATIVE [facility]rol [facility] 3 DO Work Phone: [phone] Leukocyte esterase Test strip Ql (U) TRACE Abnormal NEGATIVE [facility] 3 DO Work Phone: [phone] pH (U) 5.0 [pH] 5.0 - 8.0 [facility] 3 DO Work Phone: [phone] Protein (U) [Mass/Vol] 30(1+) Abnormal NEGATIVE [facility] -[place]rol[place] [address] DO Work Phone: [phone] RBC (U) [#/Vol] Negative NEGATIVE MP-Nephro lo [place] [address] DO Work Phone: [phone] Specific gravity (U) [Rel density] 1.018 See Below [facility]rol[facility] 3 DO Work Phone: [phone] Comment on above: Reference Range: 1.0 05 - 1.035 Urinalysis Negative NEGATIVE [facility] 3 DO Work Phone: [phone] Urinalysis <2.0 0.0 - 1.9 [facility] 3 DO Work Phone: Urinalysis, Microscopicon Urinalysis, Microscopic 3+ Abnormal [facility]rol[facility] 3 DO Work Phone: Urinalysis, Microscopic 4 {/HPF} 0-5 [facility]rol[facility] 3 DO Work Phone: [phone] Urinalysis, Microscopic 1 {/HPF} 0-5 [facility]phrolo [facility] 3 DO Work Phone: Urinalysis, Microscopic 9 {/HPF} [facility]phrolo [facility] 3 DO Work Phone: Urinalysis, Microscopic 1+ [facility]-Nephrolo [facility] 3 DO Work Phone: Hemoglobin A1Con 10-30-2019 HbA1c (Bld) [Mass fraction] 128 {MG/DL} [facility] Work Phone: HbA1c (Bld) [Mass fraction] 6.1 % [facility] Work Phone: Comment on above: Diagnosis of Diabete s-Adults Non-Diabetic: < or = 5.6% Increased risk for developing diabetes: 5.7-6.4% Diagnostic of diabetes: > or = 6.5%. Monitoring of Diabetes Age (y) Therapeutic Goal (%) Adults: >18 <7.0 Pediatrics: 13-18 <7.5 7-12 <8.0 0- 6 7.5-8.5 [place] [employer]. Diabetes Care 33(S1), Apr 2009. Metabolic Panelon 10-30-2019 Anion gap [Moles/Vol] 12 mmol/L 10 - 20 [facility] Work Phone: Calcium [Mass/Vol] 9.2 mg/dL 8.6 - 10.3 [facility] Work Phone: Chloride [Moles/Vol] 103 mmol/L 98 - 107 [facility] Work Phone: CO2 [Moles/Vol] 26 mmol/L 21 - 32 [facility] Work Phone: Creatinine [Mass/Vol] 1.36 mg/dL above high threshold See Below [facility] Work Phone: Comment on above: Reference Range: 0.5 0 - 1.05 Glucose [Mass/Vol] 148 mg/dL above high threshold 74 - 99 [facility] Work Phone: Potassium [Moles/Vol] 3.9 mmol/L 3.5 - 5.3 [facility] Work Phone: Sodium [Moles/Vol] 137 mmol/L 136 - 145 [facility] Work Phone: Urea nitrogen [Mass/Vol] 27 mg/dL above high threshold 6 - 23 [facility] Work Phone: Otheron 10-30-2019 1-Hydroxymidazolam Confirm (U) [Mass/Vol] <25 Cutoff <25 [facility] Work Phone: 5-Qtznithpxk-6,5-Dimet hyl-3,3-Diphenylpyrrol idine (EDDP) Confirm (U) [Mass/Vol] <25 Cutoff <25 [facility] Work Phone: Comment on above: The performance [...] (6-EDDIE) Confirm (U) [Mass/Vol] <25 Cutoff <25 [facility] Work Phone: 7-Aminoclonazepam Confirm (U) [Mass/Vol] <25 Cutoff <25 [facility] Work Phone: Alpha hydroxyalprazolam Confirm (U) [Mass/Vol] <25 Cutoff <25 [facility] Work Phone: Alprazolam Confirm (U) [Mass/Vol] <25 Cutoff <25 [facility] Work Phone: Amphetamines Screen Ql (U) Negative NEGATIVE [facility] Work Phone: Comment on above: CUTOFF LEVEL: 500 NG /ML Cross-reactivity has been reported with high concentrations of the following drugs: buproprion, chloroquine, chlorpromazine, ephedrine, mephentermine, fenfluramine, phentermine, phenylpropanolamine, pseudoephedrine, and propranolol. Benzoylecgonine Screen Ql (U) Negative NEGATIVE [facility] Work Phone: Comment on above: CUTOFF LEVEL: 150 NG /ML Chlordiazepoxide Confirm (U) [Mass/Vol] <25 Cutoff <25 [facility] Work Phone: Clonazepam Confirm (U) [Mass/Vol] <25 Cutoff <25 [facility] Work Phone: Codeine Confirm (U) [Mass/Vol] <50 Cutoff <50 [facility] Work Phone: Creatinine (Body fld) [Mass/Vol] 92.6 mg/dL [facility] Work Phone: Comment on above: A urine creatinine r esult >= 20 mg/dL is considered valid without suspicion of dilution. Samples with results below this range will automatically reflex to specific gravity testing to verify specimen integrity. Diazepam Confirm (U) [Mass/Vol] <25 Cutoff <25 [facility] Work Phone: Fentanyl Confirm (U) [Mass/Vol] <2.5 Cutoff<2.5 [facility] Work Phone: Hydrocodone Confirm (U) [Mass/Vol] <25 Cutoff <25 [facility] Work Phone: Hydromorphone Confirm (U) [Mass/Vol] <25 Cutoff <25 [facility] Work Phone: Lorazepam Confirm (U) [Mass/Vol] 696 ng/mL Abnormal Cutoff <25 [facility] Work Phone: Comment on above: Consistent with use of a drug containing lorazepam, such as Ativan. Methadone Confirm (U) [Mass/Vol] <25 Cutoff <25 [facility] Work Phone: Midazolam Confirm (U) [Mass/Vol] <25 Cutoff <25 [facility] Work Phone: Morphine Confirm (U) [Mass/Vol] <50 Cutoff <50 [facility] Work Phone: Nordiazepam Confirm (U) [Mass/Vol] <25 Cutoff <25 [facility] Work Phone: Norfentanyl Confirm (U) [Mass/Vol] <2.5 Cutoff<2.5 [facility] Work Phone: Comment on above: The performance [...] Confirm (U) [Mass/Vol] <25 Cutoff <25 [facility] Work Phone: Noroxycodone Confirm (U) [Mass/Vol] <25 Cutoff <25 [facility] Work Phone: Nortramadol (U) [Mass/Vol] <50 Cutoff <50 [facility] Work Phone: Comment on above: The performance [...] Confirm (U) [Mass/Vol] <25 Cutoff <25 [facility] Work Phone: Oxycodone Confirm (U) [Mass/Vol] <25 Cutoff <25 [facility] Work Phone: Oxymorphone Confirm (U) [Mass/Vol] <25 Cutoff <25 [facility] Work Phone: Comment on above: The performance [...] Temazepam Confirm (U) [Mass/Vol] <25 Cutoff <25 [facility] Work Phone: Comment on above: The performance [...] Tramadol Confirm (U) [Mass/Vol] <50 Cutoff <50 [facility] Work Phone: Zolpidem (U) [Mass/Vol] <25 Cutoff <25 [facility] Work Phone: SEE BELOW [facility] Work Phone: Comment on above: Drug screen [...] the laboratory medical directors. <25 Cutoff <25 [facility] Work Phone: Comment on above: The [...] clinical laboratory testing. 46 {mL/min/1.73m2} Abnormal >60 [facility] Work Phone: Comment on above: CALCULATIONS OF HANNAH MATED GFR ARE PERFORMED USING THE MDRD STUDY EQUATION FOR THE IDMS-TRACEABLE CREATININE METHODS. CLIN CHEM 2007;53:766-72 38 {mL/min/1.73m2} Abnormal >60 [facility] Work Phone: Urinalysison 10-30-2019 Barbiturates Screen Ql (U) Negative NEGATIVE [facility] Work Phone: Comment on above: CUTOFF LEVEL: 200 NG /ML Cannabinoids Screen Ql (U) Negative NEGATIVE [facility] Work Phone: Comment on above: CUTOFF LEVEL: 50 NG/ ML Phencyclidine Ql (U) Negative NEGATIVE [facility] Work Phone: Comment on above: CUTOFF LEVEL: 25 NG/ ML Cross-reactivity has been reported with dextromethorphan. Vitamin B12, Serumon 020 Cobalamin (Vitamin B12) [Mass/Vol] 307 pg/mL 211 - 911 [facility] Work Phone: Vitamin D 25-Hydroxyon 10-29 Calcidiol [Mass/Vol] 15 ng/mL Abnormal [facility] Work Phone: Comment on above: .DEFICIENCY: < 20 NG /MLINSUFFICIENCY: 20-29 NG/MLSUFFICIENCY: 30-100 NG/MLTHIS ASSAY ACCURATELY QUANTIFIES THE SUM OFVITAMIN D3, 25-HYDROXY AND VIT D2,25-HYDROXY. Mamm - Screening Mammogram w / Tomosynthesison 02-14-2019 MG Breast screening Interpreted by: MERNA JIMENEZ02/16/19 17:42MRN: [id number] Name: DARYN SHAH STUDY:DIGITAL MAMM SCREENING W/ [...] any future breast imaging appointments, please call [phone]). Electronically signed by: CIARAN JIMENEZ 02/16/19 17:42 Normal [facility] Work Phone: MG Breast screening Please click on the link to view the study images Normal [facility] Work Phone: Hematologyon 02-05-2019 Hematocrit (Bld) [Volume fraction] 38.4 % See Below [facility] Work Phone: Comment on above: Reference Range: 36. 0 - 46.0 Hemoglobin (Bld) [Mass/Vol] 12.5 g/dL See Below [facility] Work Phone: Comment on above: Reference Range: 12. 0 - 16.0 MCV (RBC) [Entitic vol] 88 fL 80 - 100 [facility] Work Phone: Platelets (Bld) [#/Vol] 274 {x10E9/L} 150 - 450 [facility] Work Phone: RBC (Bld) [#/Vol] 4.35 {x10E12/L} See Below [facility] Work Phone: Comment on above: Reference Range: 4.0 0 - 5.20 WBC (Bld) [#/Vol] 12.2 {x10E9/L} above high threshold 4.4 - 11.3 [facility] Work Phone: Hemoglobin A1Con 02-05-2019 HbA1c (Bld) [Mass fraction] 6.2 % [facility] Work Phone: Comment on above: Diagnosis of Diabete s-Adults Non-Diabetic: < or = 5.6% Increased risk for developing diabetes: 5.7-6.4% Diagnostic of diabetes: > or = 6.5%. Monitoring of Diabetes Age (y) Therapeutic Goal (%) Adults: >18 <7.0 Pediatrics: 13-18 <7.5 7-12 <8.0 0- 6 7.5-8.5 [place] [employer]. Diabetes Care 33(S1), Apr 2009. HbA1c (Bld) [Mass fraction] 131 {MG/DL} [facility] Work Phone: Metabolic Panelon 02-05-2019 ALP [Catalytic activity/Vol] 118 U/L 33 - 136 [facility] Work Phone: Anion gap [Moles/Vol] 16 mmol/L 10 - 20 [facility] Work Phone: Bilirubin [Mass/Vol] 0.5 mg/dL 0.0 - 1.2 [facility] Work Phone: Calcium [Mass/Vol] 9.2 mg/dL 8.6 - 10.3 [facility] Work Phone: Chloride [Moles/Vol] 98 mmol/L 98 - 107 [facility] Work Phone: CO2 [Moles/Vol] 29 mmol/L 21 - 32 [facility] Work Phone: [phone] Creatinine [Mass/Vol] 1.05 mg/dL See Below [facility] Work Phone: [phone] Comment on above: Reference Range: 0.5 0 - 1.05 Glucose [Mass/Vol] 120 mg/dL above high threshold 74 - 99 [facility] Work Phone: Potassium [Moles/Vol] 4.2 mmol/L 3.5 - 5.3 [facility] Work Phone: Protein [Mass/Vol] 7.2 g/dL 6.4 - 8.2 [facility] Work Phone: Sodium [Moles/Vol] 139 mmol/L 136 - 145 [facility] Work Phone: Urea nitrogen [Mass/Vol] 19 mg/dL 6 - 23 [facility] Work Phone: Otheron 02-05-2019 Albumin BCP dye [Mass/Vol] 4.1 g/dL 3.4 - 5.0 [facility] Work Phone: ALT With P-5'-P [Catalytic activity/Vol] 12 U/L 7 - 45 [facility] Work Phone: Comment on above: Patients treated wit h Sulfasalazine may generate falsely decreased results for ALT. AST With P-5'-P [Catalytic activity/Vol] 18 U/L 9 - 39 [facility] Work Phone: Erythrocyte distribution width (RBC) [Ratio] 15.7 % above high threshold See Below [facility] Work Phone: Comment on above: Reference Range: 11. 5 - 14.5 MCHC (RBC) [Mass/Vol] 32.5 g/dL See Below [facility] Work Phone: Comment on above: Reference Range: 32. 0 - 36.0 63 {mL/min/1.73m2} >60 [facility] Work Phone: Comment on above: CALCULATIONS OF HANNAH MATED GFR ARE PERFORMED USING THE MDRD STUDY EQUATION FOR THE IDMS-TRACEABLE CREATININE METHODS. CLIN CHEM 2007;53:766-72 52 {mL/min/1.73m2} Abnormal >60 [facility] Work Phone: [phone] [facility] Work Phone: Comment on above: Age: 73 YearsSex: FC ongestive Heart Failure: NoHypertension: YesStroke/TIA/Thromboembolism: NoVascular Disease: NoDiabetes Mellitus: Yes Moderate-High [facility] Work Phone: Comment on above: Age: 73 YearsSex: FC ongestive Heart Failure: NoHypertension: YesStroke/TIA/Thromboembolism: NoVascular Disease: NoDiabetes Mellitus: Yes 2.2 % [facility] Work Phone: Comment on above: Age: 73 YearsSex: FC ongestive Heart Failure: NoHypertension: YesStroke/TIA/Thromboembolism: NoVascular Disease: NoDiabetes Mellitus: Yes 4.8 % [facility] Work Phone: Comment on above: Age: 73 YearsSex: FC ongestive Heart Failure: NoHypertension: YesStroke/TIA/Thromboembolism: NoVascular Disease: NoDiabetes Mellitus: Yes Thyroidon 02-05-2019 TSH Qn 3.72 {mIU/L} See Below [facility] Work Phone: Comment on above: Reference Range: 0.4 4 - 3.98 TSH testing is performed using different testing methodology at [facility] than at other [facility]. Direct result comparisons should only be made within the same method. CMPon 11-05-2018 Albumin [Mass/Vol] 4.1 g/dL Normal 3.4-5.0 [facility] Comment on above: Performed By: #### 2 [id number] #### [facility] [employer] [address] [place] [address]39 Albumin/Globulin [Mass ratio] 1.1 {ratio} Normal 1.1-1.9 [facility] Comment on above: Performed By: #### 2 [id number] #### [facility] [employer] [address] [place] [address] 97351 Alk Phos 113 Int._Unit/L Normal 33-136 [facility] Comment on above: Performed By: #### 2 [id number] #### [facility] [employer] [address] [place] [address] 58006 ALT [Catalytic activity/Vol] 11 Int._Unit/L Normal 7-45 [facility] Comment on above: Performed By: #### 2 [id number] #### [facility] [address] [place] [address] 59388 Anion gap [Moles/Vol] 17 mmol/L Normal 10-20 [facility] Comment on above: Performed By: #### 2 [id number] #### [facility] [address] [place] [address] 99304 AST [Catalytic activity/Vol] 15 Int._Unit/L Normal 9-39 [facility] Comment on above: Performed By: #### 2 [id number] #### [facility] [employer] [address] [place] [address] 81945 Bili Total 0.55 mg/dL Normal 0.00-1.20 [facility] Comment on above: Performed By: #### 2 [id number] #### [facility] [address] [place] [address] 82138 Calcium [Mass/Vol] 9.7 mg/dL Normal 8.6-10.3 [facility] Comment on above: Performed By: #### 2 [id number] #### [facility] [address] [place] [address] 40307 Chloride [Moles/Vol] 97 mmol/L Low 98-107 [facility] Comment on above: Performed By: #### 2 [id number] #### [facility] [address] [place] [address] 86321 CO2 [Moles/Vol] 28.0 mmol/L Normal 21.0-32.0 [facility] Comment on above: Performed By: #### 2 [id number] #### [facility] [employer] [address] [place] [address] 81139 Creatinine [Mass/Vol] 1.3 mg/dL High 0.5-1.1 [facility] Comment on above: Performed By: #### 2 [id number] #### [facility] [employer] [address] [place] [address] 82696 Globulin (S) [Mass/Vol] 4.0 g/dL Normal 2.0-4.0 [facility] Comment on above: Performed By: #### 2 [id number] #### [facility] [employer] [address] [place] [address] 74803 Glucose [Mass/Vol] 133 mg/dL High 70-99 [facility] Comment on above: Performed By: #### 2 [id number] #### [facility] [employer] [address] [place] [address] 30088 Potassium [Moles/Vol] 3.9 mmol/L Normal 3.5-5.3 [facility] Comment on above: Performed By: #### 2 [id number] #### [facility] [employer] [address] [place] [address] 45808 Protein [Mass/Vol] 7.7 g/dL Normal 6.4-8.2 [facility] Comment on above: Performed By: #### 2 [id number] #### [facility] [address] [place] [address] 82839 Sodium [Moles/Vol] 138 mmol/L Normal 136-145 [facility] Comment on above: Performed By: #### 2 [id number] #### [facility] [address] [place] [address] 78876 Urea nitrogen [Mass/Vol] 18 mg/dL Normal 6-23 [facility] Comment on above: Performed By: #### 2 [id number] #### [facility] [employer] [facility] [place] [address] Urea nitrogen/Creatinine [Mass ratio] 13.8 ratio Normal 5.4-30.0 [facility] Comment on above: Performed By: #### 2 [id number] #### [facility] [facility] [place] [address] [id number] 11-05-2018 HbA1c (Bld) [Mass fraction] 6.4 % High 4.0-6.3 [facility] Comment on above: Performed By: #### 3 [id number] #### ARIANNA Chemistry Manual Subsection [address] [place] [address] 86702 Lipid Profileon 11-05-2018 Cholesterol [Mass/Vol] 222 mg/dL High 0-199 [facility] Comment on above: Result Comment: TOTA L CHOLEESTEROL: <200 NORMAL 200 - 239 BORDERLINE HIGH >240 HIGH Performed By: #### 3 [id number] #### [employer] [address] [place] [address] 99364 Cholesterol in HDL [Mass/Vol] 46 mg/dL Normal 40-60 [facility] Comment on above: Performed By: #### 3 [id number] #### [facility] [address] [place] [address] 91137 Cholesterol in LDL [Mass/Vol] 135 mg/dL High 0-130 [facility] Comment on above: Result Comment: <100 OPTIMAL 100-129 NEAR / ABOVE OPTIMAL 130-159 BORDERLINE HIGH 160-189 HIGH >190 VERY HIGH CALC LDL NOT VALID WHEN TRIGLYCERIDE IS >400 MG/DL Performed By: #### 3 [id number] #### [employer] [address] [place] [address] 26191 Cholesterol in VLDL [Mass/Vol] 41 mg/dL High 0-40 [facility] Comment on above: Performed By: #### 3 [id number] #### [facility] [address] [place] [address] 46305 Triglyceride [Mass/Vol] 205 mg/dL High 0-149 [facility] Comment on above: Result Comment: AGE DESIRABLE BORDERLINE HIGH 91 D - 9 Y 0 - 74 75 - 99 > 100 10 - 19 Y 0 - 89 90 - 129 > 130 20 -24 Y 0 - 114 115 - 149 > 150 > 25 0 - 149 150 - 199 200 - 499 Performed By: #### 3 [id number] #### [facility] [employer] [address] [place] [address] U Drug Screenon 11-05-2018 U Amph Scr Negative Normal Negative [facility] Comment on above: Performed By: #### 2 [id number] #### [facility]NA [employer] [address] [place] [address] U Tara Scr Negative Normal Negative [facility] Comment on above: Performed By: #### 2 [id number] #### [facility] [employer] [address] [place] [address] U Benzodia Scr Negative Normal Negative [facility] Comment on above: Performed By: #### 2 [id number] #### [facility] [employer] [address] [place] [address] U Cannab Scr Negative Normal Negative [facility] Comment on above: Performed By: #### 2 [id number] #### [facility] [employer] [address] [place] [address] U Cocaine Scr Negative Normal Negative [facility] Comment on above: Performed By: #### 2 [id number] #### [facility] [employer] [address] [place] [address] U Opiate Scr Negative Normal Negative [facility] Comment on above: Performed By: #### 2 [id number] #### [facility] [employer] [address] [place] [address] U PCP Scr Negative Normal Negative [facility] Comment on above: Performed By: #### 2 [id number] #### [facility] [employer] [address] [place] [address] Vitamin D 25 Hydroxyon 11-05 Vitamin D 25 Hydroxy 26.0 ng/mL Low 30.0-100.0 [facility] Comment on above: Performed By: #### 5 [id number] #### [facility] [employer] [address] [place] [address] eGFRon 11-05-2018 GFR/1.73 sq M predicted among non-blacks MDRD (S/P/Bld) [Vol rate/Area] 50 mL/min/1.73 m2 Normal [facility] Comment on above: Order Comment: Order added by Discern Expert. Performed By: #### 1 [id number] #### [facility] [employer] [address] [place] [address] GFR/1.73 sq M predicted among non-blacks MDRD (S/P/Bld) [Vol rate/Area] 42 mL/min/1.73 m2 [facility] Comment on above: Order Comment: Order added by Discern Expert. Performed By: #### 1 [id number] #### [facility] [employer] [address] [place] [address] Vital Signs Date Time Vital Sign Value Performing Clinician Facility 10-28-2024 12:45-0400 Body temperature 98 [degF] Dr. April Mullen MD [facility] 10-28-2024 12:45-0400 Diastolic blood pressure 81 mm[Hg] Dr. April Mullen MD [facility] 10-28-2024 12:45-0400 Heart rate 87 /min Dr. April Mullen MD [facility] 10-28-2024 12:45-0400 Respiratory rate 18 /min Dr. April Mullen MD [facility] 10-28-2024 12:45-0400 SaO2% (BldA) [Mass fraction] 98 % Dr. April Mullen MD [facility] 10-28-2024 12:45-0400 Systolic blood pressure 98 mm[Hg] Dr. April Mullen MD [facility] 10-28-2024 10:53-0400 Body height 167.[address] April Mullen MD [facility] 10-28-2024 10:53-0400 Body mass index (BMI) [Ratio] 33.5 kg/m2 Dr. April Mullen MD [facility] 10-28-2024 10:53-0400 Body weight 94.[address] April Mullen MD [facility] 10-09-2024 14:51-0400 Body height 167.[address] April Mullen MD [facility] 10-09-2024 14:51-0400 Diastolic blood pressure 69 mm[Hg] Dr. April Mullen MD [facility] 10-09-2024 14:51-0400 Heart rate 101 /min Dr. April Mullen MD [facility] 10-09-2024 14:51-0400 Respiratory rate 18 /min Dr. April Mullen MD [facility] 10-09-2024 14:51-0400 Systolic blood pressure 89 mm[Hg] Dr. April Mullen MD [facility] 07-23-2024 08:30-0400 Body mass index (BMI) [Ratio] 32.4 kg/m2 Dr. April Mullen MD [facility] 07-23-2024 08:30-0400 Body weight 91.[address] April Mullen MD [facility] 07-23-2024 08:30-0400 Diastolic blood pressure 79 mm[Hg] Dr. April Mullen MD [facility] 07-23-2024 08:30-0400 Heart rate 76 /min Dr. April Mullen MD [facility] 07-23-2024 08:30-0400 Respiratory rate 18 /min Dr. April Mullen MD [facility] 07-23-2024 08:30-0400 Systolic blood pressure 104 mm[Hg] Dr. April Mullen MD [facility] 07-01-2024 14:10-0400 Body temperature 97.6 [degF] Dominic Lim [facility] 07-01-2024 14:10-0400 Diastolic blood pressure 82 mm[Hg] Dominic Lim [facility] 07-01-2024 14:10-0400 Heart rate 81 /min Dominic Lim [facility] 07-01-2024 14:10-0400 Respiratory rate 16 /min Dominic Lim [facility] 07-01-2024 14:10-0400 SaO2% (BldA) [Mass fraction] 99 % [facility] 07-01-2024 14:10-0400 Systolic blood pressure 108 mm[Hg] Dominic Lim [facility] 07-01-2024 11:58-0400 Body height 167.[address] [facility] 07-01-2024 11:58-0400 Body mass index (BMI) [Ratio] 32.4 kg/m2 Dominic Lim [facility] 07-01-2024 11:58-0400 Body weight 91.17 kg Dominic Lim [facility] 04-28-2024 10:59-0500 Body height 167.64 cm Dominic Lim [facility] 04-28-2024 10:59-0500 Body mass index (BMI) [Ratio] 32.4 kg/m2 Dominic Lim [facility] 04-28-2024 10:59-0500 Body weight 91.17 kg Dominic Lim [facility] 04-28-2024 10:59-0500 Diastolic blood pressure 70 mm[Hg] Dominic Lim [facility] 04-28-2024 10:59-0500 Heart rate 81 /min Dominic Lim [facility] 04-28-2024 10:59-0500 Respiratory rate 18 /min Dominic Lim [facility] 04-28-2024 10:59-0500 SaO2% (BldA) [Mass fraction] 98 % Dominic Lim [facility] 04-28-2024 10:59-0500 Systolic blood pressure 98 mm[Hg] Dominic [facility] 03-28-2024 17:47-0500 Body temperature 98.2 [degF] Dominic Lim [facility] 03-28-2024 17:47-0500 Diastolic blood pressure 61 mm[Hg] Dominic Lim [facility] 03-28-2024 17:47-0500 Heart rate 90 /min Dominic [facility] 03-28-2024 17:47-0500 Respiratory rate 18 /min Dominic Chamberlainelsen [facility] 03-28-2024 17:47-0500 SaO2% (BldA) [Mass fraction] 97 % Dominic Lim [facility] 03-28-2024 17:47-0500 Systolic blood pressure 99 mm[Hg] Dominic [facility] 03-28-2024 11:54-0500 Body mass index (BMI) [Ratio] 34.7 kg/m2 Dominic Lim OLS [facility] 03-28-2024 11:54-0500 Body weight 97.6 kg Dominic Carina LUCERO [facility] 02-28-2024 09:59-0500 Body height 167.6 cm Braulio Oneil MD PhD Work Phone: [facility] 02-28-2024 09:59-0500 Body mass index (BMI) [Ratio] 36.32 kg/m2 Braulio Oneil MD PhD Work Phone: [facility] 02-28-2024 09:59-0500 Body temperature 96.6 [degF] Braulio Oneil MD PhD Work Phone: [facility] 02-28-2024 09:59-0500 Body weight 102.06 kg Braulio Oneil MD PhD Work Phone: [facility] 02-28-2024 09:59-0500 Diastolic blood pressure 76 mm[Hg] Braulio Oneil MD PhD Work Phone: [facility] 02-28-2024 09:59-0500 Heart rate 88 /min Braulio Oneil MD PhD Work Phone: [facility] 02-28-2024 09:59-0500 Systolic blood pressure 108 mm[Hg] Braluio Oneil MD PhD Work Phone: [facility] 12-04-2023 10:41-0400 Diastolic blood pressure 72 mm[Hg] Eliza Milks PA-C Work Phone: [facility] 12-04-2023 10:41-0400 Heart rate 83 /min Eliza Milks PA-C Work Phone: [facility] 12-04-2023 10:41-0400 Systolic blood pressure 106 mm[Hg] Eliza Milks PA-C Work Phone: [facility] 11-20-2023 08:04-0400 Body temperature 98.1 [degF] Madhuri Chauhan MD Work Phone: [facility] 11-20-2023 08:04-0400 Diastolic blood pressure 89 mm[Hg] Madhuri Chauhan MD Work Phone: [facility] 11-20-2023 08:04-0400 Heart rate 99 /min Madhuri Chauhan MD Work Phone: [facility] 11-20-2023 08:04-0400 Respiratory rate 18 /min Madhuri Chauhan MD Work Phone: [facility] 11-20-2023 08:04-0400 SaO2% (BldA) [Mass fraction] 96 % Madhuri Chauhan MD Work Phone: [facility] 11-20-2023 08:04-0400 Systolic blood pressure 145 mm[Hg] Madhuri Chauhan MD Work Phone: [facility] 11-14-2023 18:51-0400 Body temperature 37.0 Madhuri Chauhan MD Work Phone: [facility] 11-14-2023 18:51-0400 SaO2% (BldA) [Mass fraction] 99 % Madhuri Chauhan MD Work Phone: [facility] 11-14-2023 18:34-0400 Body temperature 37.0 degrees Celsius [facility] Comment on above: Performed By: #### [id number] #### OMERO KNIGHT ([id number]) [facility] ([facility]) [address] [place] [address] 11-14-2023 18:34-0400 SaO2% (BldA) [Mass fraction] 99 % [facility] Comment on above: Performed By: #### [id number] #### OMERO KNIGHT ([id number]) [facility] ([facility]) [address] [place] [address] 11-14-2023 16:54-0400 Body temperature 37.0 Madhuri Chauhan MD Work Phone: [facility] 11-14-2023 16:54-0400 SaO2% (BldA) [Mass fraction] 99 % Madhuri Chauhan MD Work Phone: [facility] 11-14-2023 16:36-0400 Body temperature 37.0 degrees Celsius [facility] Comment on above: Performed By: #### [id number] #### OMERO KNIGHT ([id number]) [facility] ([facility]) [address] [place] [address] 11-14-2023 16:36-0400 SaO2% (BldA) [Mass fraction] 99 % [facility] Comment on above: Performed By: #### [id number] #### OMERO KNIGHT ([id number]) [facility] ([facility]) [address] [place] [address] 11-09-2023 02:30-0400 Body height 170.2 cm Madhuri Chauhan MD Work Phone: [facility] 11-09-2023 02:30-0400 Body mass index (BMI) [Ratio] 32.66 kg/m2 Madhuri Chauhan MD Work Phone: [facility] 11-09-2023 02:30-0400 Body weight 94.6 kg Madhuri Chauhan MD Work Phone: [facility] 10-15-2023 15:10-0400 Body temperature 97.5 [degF] Flavio Miles DO Work Phone: [facility] 10-15-2023 15:10-0400 Diastolic blood pressure 83 mm[Hg] Flavio Miles DO Work Phone: [facility] 10-15-2023 15:10-0400 Heart rate 78 /min Flavio Miles DO Work Phone: [facility] 10-15-2023 15:10-0400 Respiratory rate 16 /min Flavio Miles DO Work Phone: [facility] 10-15-2023 15:10-0400 SaO2% (BldA) [Mass fraction] 92 % Flavio Miles DO Work Phone: [facility] 10-15-2023 15:10-0400 Systolic blood pressure 121 mm[Hg] Flavio Miles DO Work Phone: [facility] 10-10-2023 01:24-0400 Body height 167.6 cm Flavio Miles DO Work Phone: [facility] 10-10-2023 01:24-0400 Body mass index (BMI) [Ratio] 40.35 kg/m2 Flavio Miles DO Work Phone: [facility] 10-10-2023 01:24-0400 Body weight 113.4 kg Flavio Miles DO Work Phone: [facility] 06-10-2023 19:14-0500 Diastolic blood pressure 63 mm[Hg] Flavio Miles DO Work Phone: [facility] 06-10-2023 19:14-0500 Heart rate 83 /min Flavio Miles DO Work Phone: [facility] 06-10-2023 19:14-0500 Respiratory rate 16 /min Flavio Miles DO Work Phone: [facility] 06-10-2023 19:14-0500 SaO2% (BldA) [Mass fraction] 98 % Flavio Miles DO Work Phone: [facility] 06-10-2023 19:14-0500 Systolic blood pressure 118 mm[Hg] Flavio Miles DO Work Phone: [facility] 06-10-2023 17:41-0500 Body height 167.6 cm Flavio Miles DO Work Phone: [facility] 06-10-2023 17:41-0500 Body mass index (BMI) [Ratio] 40.03 kg/m2 Flavio Miles DO Work Phone: [facility] 06-10-2023 17:41-0500 Body temperature 97.81 [degF] Flavio Miles DO Work Phone: [facility] 06-10-2023 17:41-0500 Body weight 112.49 kg Flavio Miles DO Work Phone: [facility] 10-13-2022 14:22-0400 Body height 167.6 cm Huan Mcdaniel MD Work Phone: [facility] 10-13-2022 14:22-0400 Body mass index (BMI) [Ratio] 40.05 kg/m2 Huan Mcdaniel MD Work Phone: [facility] 10-13-2022 14:22-0400 Body weight 112.49 kg Huan Mcdaniel MD Work Phone: [facility] 06-05-2022 11:04-0500 Body mass index (BMI) [Ratio] Medical Reason Not Done Huan Mcdaniel Work Phone: [facility] Work Phone: 06-05-2022 11:04-0500 Diastolic blood pressure 78 mm[Hg] Huan Mcdaniel Work Phone: [facility] Work Phone: 06-05-2022 11:04-0500 Heart rate 90 /min Huan Mcdaniel Work Phone: [facility] Work Phone: 06-05-2022 11:04-0500 SaO2% (BldA) [Mass fraction] 90 % Huan Mcdaniel Work Phone: [facility] Work Phone: 06-05-2022 11:04-0500 Systolic blood pressure 120 mm[Hg] Huan O Mcdaniel Work Phone: [facility] Work Phone: 05-24-2022 11:32-0500 Diastolic blood pressure 74 mm[Hg] Huan O Mcdaniel Work Phone: NT-Waytjfblvo[facility] [address] Work Phone: 05-24-2022 11:32-0500 Heart rate 104 /min Huan O Mcdaniel Work Phone: QR-Dmyjgidzmt-Ejzn [address] Work Phone: 05-24-2022 11:32-0500 SaO2% (BldA) [Mass fraction] 97 % Huan O Mcdaniel Work Phone: NV-Aygrabptnl-Bhap [address] Work Phone: 05-24-2022 11:32-0500 Systolic blood pressure 118 mm[Hg] Huan O Mcdaniel Work Phone: MO-Zgxlqwzpiq-Xnac [facility] [address] Work Phone: 03-07-2022 14:08-0500 Body mass index (BMI) [Ratio] Patient Reason Not Done Huan O Mcdaniel Work Phone: -[facility] Work Phone: 03-07-2022 14:08-0500 Diastolic blood pressure 74 mm[Hg] Huan O Mcdaniel Work Phone: -[facility] Work Phone: 03-07-2022 14:08-0500 Heart rate 76 /min Huan O Mcdaniel Work Phone: [facility] Work Phone: 03-07-2022 14:08-0500 Respiratory rate 16 /min Huan O Mcdaniel Work Phone: [facility] Work Phone: 03-07-2022 14:08-0500 Systolic blood pressure 118 mm[Hg] Huan Manriqueer Work Phone: [facility] Work Phone: 02-04-2021 16:31-0400 Diastolic blood pressure 78 mm[Hg] Huan Manriqueer Work Phone: [facility] Work Phone: 02-04-2021 16:31-0400 Heart rate 72 /min Huan Manriqueer Work Phone: [facility] Work Phone: 02-04-2021 16:31-0400 Systolic blood pressure 124 mm[Hg] Huan Manriqueer Work Phone: [facility] Work Phone: 11-13-2019 15:22-0400 BMI (Body Mass Index) 51.09 kg/m2 Huan Mcdaniel CT-Qrlocmslez-AZS [place] [address] Edwin [address] DO Work Phone: 11-13-2019 15:22-0400 Body Temperature 96.9 [degF] Huan Mcdaniel EX[facility] Work Phone: 11-13-2019 15:22-0400 Body weight 139.26 kg Huan Mcdaniel CJ-Vggvasgdoh-LX [facility] Edwin 3 DO Work Phone: 11-13-2019 15:22-0400 BP Diastolic 69 mm[Hg] Huan Mcdaniel OS-Zgcqhppkjb-MT [facility] Edwin 3 DO Work Phone: Comment on above: Location: RUE; Position: Sitting 11-13-2019 15:22-0400 BP Systolic 116 mm[Hg] Huan Mcdaniel GE-Juccrdeiet-DM [facility] Edwin 3 DO Work Phone: Comment on above: Location: RUE; Position: Sitting 11-13-2019 15:22-0400 BSA (Body Surface Area) 2.37 m2 Huan Manriquefatou GARRIDOZV-Eprdcofifa[facility] Edwin 3 DO Work Phone: 11-13-2019 15:22-0400 Height 165.1 cm Huan Manriquefatou GARRIDOLH-Qnvjgsnzlb[facility] Edwin 3 DO Work Phone: 11-13-2019 15:22-0400 Pulse (Heart Rate) 79 /min Huan Mcdaniel [facility] 3 [facility] Work Phone: 10-30-2019 12:49-0400 BMI (Body Mass Index) 51.09 kg/m2 [facility] Work Phone: 10-30-2019 12:49-0400 Body Temperature 98.2 [degF] Waqar [facility] Work Phone: Comment on above: Method: Oral 10-30-2019 12:49-0400 Body weight 139.26 kg Waqar [facility]strada [facility] Work Phone: 10-30-2019 12:49-0400 BP Diastolic 80 mm[Hg] Waqar [facility] Work Phone: Comment on above: Location: LUE; 10-30-2019 12:49-0400 BP Systolic 134 mm[Hg] Waqar [facility]strada [facility] Work Phone: Comment on above: Location: LUE; 10-30-2019 12:49-0400 BSA (Body Surface Area) 2.37 m2 Waqar [facility]strada [facility] Work Phone: 10-30-2019 12:49-0400 Height 165.1 cm Waqar [facility]strada [facility] Work Phone: 10-30-2019 12:49-0400 Pulse (Heart Rate) 72 /min Waqar [facility]strada [facility] Work Phone: 02-19-2019 12:06-0500 BMI (Body Mass Index) 50.66 kg/m2 [facility] Work Phone: 02-19-2019 12:06-0500 Body weight 138.08 kg [facility] Work Phone: 02-19-2019 12:06-0500 BP Diastolic 86 mm[Hg] [facility] Work Phone: Comment on above: Location: LUE; 02-19-2019 12:06-0500 BP Systolic 128 mm[Hg] [facility] Work Phone: Comment on above: Location: LUE; 02-19-2019 12:06-0500 BSA (Body Surface Area) 2.36 m2 [facility] Work Phone: 02-19-2019 12:06-0500 Height 165.1 cm [facility] Work Phone: 02-19-2019 12:06-0500 Pulse (Heart Rate) 84 /min [facility] Work Phone: 02-19-2019 12:06-0500 Pulse Oximetry 96 % [facility] Work Phone: 02-05-2019 12:12-0400 BMI (Body Mass Index) 51.59 kg/m2 [facility] Work Phone: 02-05-2019 12:12-0400 Body weight 140.62 kg Huan Mcdaniel RADHIKA[facility] Work Phone: 02-05-2019 12:12-0400 BP Diastolic 78 mm[Hg] Huanfatou Manriqueer RADHIKA-[facility] Work Phone: Comment on above: Location: LUE; 02-05-2019 12:12-0400 BP Systolic 128 mm[Hg] Huan Mcdaniel -[facility] Work Phone: Comment on above: Location: LUE; 02-05-2019 12:12-0400 BSA (Body Surface Area) 2.38 m2 Huan Mcdaniel [facility] Work Phone: 02-05-2019 12:12-0400 Height 165.1 cm Huan Mcdaniel [facility] Work Phone: 02-05-2019 12:12-0400 Pulse (Heart Rate) 72 /min Huan Mcdaniel [facility] [place] [facility] Work Phone: Encounters Encounter Date Encounter Type Care Provider Facility Start: 10-28-[address] [facility] [place]:[facility] [place] Start: 10-28-2024 Non-patient / Non-visit Jacinto Masterson nd, DO -[facility] Start: 10-28-2024 End: 10-28-2024 Admission to same day surgery center Jacinto Munoz DO -Endoscopy Work Phone: Start: 10-28-2024 End: 10-28-[address] April Mullen MD -Endoscopy Start: 10-09-2024 End: 10-09-2024 Patient encounter procedure Yennifer Pemberton NP-Hollie -[facility] Work Phone: Start: 10-09-2024 End: 10-09-[address] April Mullen MD -[facility] Start: 09-19-2024 End: 09-19-2024 Telephone encounter Laurent Garza APRN.[employer] Work Phone: [facility] Start: 09-17-2024 End: 09-17-2024 Telephone encounter Laurent Garza APRN.[employer] Work Phone: [facility] Comment on above: Appointment (Appoint ment) Start: 09-16-2024 ambulatory Aprilluke Mullen Facility:[facility] Start: 09-16-[address] Delgado Amaro MD -[facility] Start: 08-19-[address] [facility] Facility:[facility] Start: 08-19-[address] Delgado Amaro MD -[facility] Start: 08-13-2024 ambulatory Apirl Gudla Facility:[facility] [place] Start: 08-13-2024 Non-patient / Non-visit Dr. Henri duron MD -[facility] Start: 08-13-2024 End: 08-13-[address] April Mullen MD [facility] Work Phone: Start: 08-13-2024 End: 08-13-[address] Henri Pedraza MD -Cardiovascular Services Work Phone: Start: 08-13-2024 End: 08-13-2024 ambulatory April Gudla Facility:[facility] Start: 07-31-2024 End: 07-31-2024 Patient encounter procedure Mandy MISTRY -[facility] Work Phone: Start: 07-31-2024 End: 07-31-2024 ambulatory April Gudla Facility:[facility] Start: 07-23-2024 End: 07-23-[address] Henri Pedraza MD [facility] Work Phone: Start: 07-23-2024 End: 07-23-2024 ambulatory April Gudla Facility:[facility] Start: 07-22-2024 End: 07-22-[address] April Mullen MD [facility] Work Phone: Start: 07-22-2024 End: 07-22-[address] Delgado Amaro MD -[facility] Start: 07-22-2024 End: 07-22-2024 ambulatory April Gudla Facility:[facility] Start: 07-01-2024 ambulatory April Gudla Facility:[facility] Start: 07-01-2024 Non-patient / Non-visit Jacinto Masterson nd, DO -[facility] Start: 07-01-2024 End: 07-01-2024 Admission to same day surgery center Jacinto Munoz DO -Endoscopy Work Phone: Start: 07-01-2024 End: 07-01-2024 ambulatory [facility] Work Phone: Start: 06-24-2024 End: 06-24-2024 ambulatory [facility] Work Phone: Start: 06-24-2024 End: 06-24-[address] Delgado Amaro MD -[facility] Start: 06-24-[address] Delgado Amaro MD [facility] Start: 06-24-2024 End: 06-24-[address] [facility] Facility:[facility] Start: 06-04-2024 End: 06-04-2024 ambulatory [facility] Work Phone: Start: 06-04-2024 End: 06-04-[address] April Mullen MD [facility] Start: 06-04-[address] April Mullen MD [facility] Start: 06-03-2024 End: 06-04-2024 ambulatory [facility] Work Phone: Start: 06-03-2024 End: 06-03-[address] eDlgado Amaro MD [facility] Start: 06-03-[address] Delgado Amaro MD [facility] Start: 06-02-2024 End: 06-03-2024 ambulatory Delgado LUCERO Facility:[facility] Start: 06-02-[address] April Mullen MD [facility] Start: 05-27-2024 [facility] Start: 05-27-[address] April Mullen MD [facility] Start: 05-12-2024 End: 05-12-2024 ambulatory [facility] Work Phone: Start: 05-12-2024 End: 02-03-[address] Delgado Amaro MD -[facility] Start: 05-12-2024 End: 05-12-2024 ambulatory Delgado LUCERO Facility:[facility] Start: 04-28-2024 End: 04-28-2024 Patient encounter procedure Chrissie CASH -[facility] Work Phone: Start: 04-28-2024 End: 04-28-2024 ambulatory April Mullen Facility:[facility] Start: 04-14-2024 ambulatory April Mullen OLS Facili ty:[facility] Start: 04-14-[address] April Mullen MD -[facility] Start: 04-07-2024 End: 04-07-[address] April Mullen MD -[facility] Start: 04-07-2024 End: 04-07-2024 ambulatory Aprilluke Mullen Facility:[facility] Start: 04-03-2024 End: 04-03-[address] April Mullen MD -[facility] Start: 04-03-2024 End: 04-03-2024 ambulatory Aprilluke Mullen Facility:[facility] Start: 03-28-2024 End: 03-28-2024 Emergency department patient visit Dr. Anthony Greer DO -Emergency Department Work Phone: Start: 03-28-2024 End: 03-28-2024 Departed Referred Dominic Lim [facility] Start: 03-28-2024 End: 03-28-2024 ambulatory Dominic LUCERO Facility:[facility] Start: 02-28-2024 End: 02-28-2024 Postop follow up visit related to original px Braulio Oneil MD PhD Work Phone: [facility] Comment on above: S/P laminectomy ([place] Dx) Start: 02-28-2024 End: 02-28-2024 medical behavioral hospital BRAULIO ONEIL [facility] Start: 02-27-2024 End: 02-27-2024 Departed Referred Dominic Lim [facility] Start: 02-27-2024 End: 02-27-2024 ambulatory Dominic LUCERO Facility:[facility] Start: 01-29-2024 ambulatory Dominic Lim OLS Facili ty:[facility] Start: 01-28-2024 ambulatory Dominic Lim Facility:[facility] Start: 01-21-2024 ambulatory Dominic Lim OLS Facili ty:[facility] Start: 01-16-2024 ambulatory April Gudla OLS Facili ty:[facility] Start: 01-15-2024 End: 01-15-2024 Office outpatient visit 25 minutes Megan Osorio DO Work Phone: [facility] Comment on above: Vertebral osteomyeli tis (Multi) (Primary Dx) Start: 01-15-2024 End: 01-15-2024 ambulatory [facility] Start: 01-14-2024 ambulatory Dominic Lim OLS Facili ty:[facility] Start: 01-09-2024 ambulatory April Gudla OLS Facili ty:[facility] Start: 01-01-2024 ambulatory Ryansunalex Ryanmaria luisaalistair Facility:[facility] Start: 12-31-2023 End: 01-08-2024 Evaluation and management of inpatient Waqar batsheva Donte Facility:[facility] Start: 12-31-2023 ambulatory Waqar herman Donte Facili ty:[facility] Start: 12-28-2023 ambulatory Dominic Lim OLS Facili ty:[facility] Start: 12-26-2023 End: 12-26-2023 Office outpatient visit 25 minutes Megan Osorio DO Work Phone: [facility] Comment on above: Vertebral osteomyeli tis (Multi) (Primary Dx); Discitis, unspecified, thoracic region Start: 12-25-2023 ambulatory Dominic Lim OLS Facili ty:[facility] Start: 12-24-2023 ambulatory April Gudla OLS Facili ty:[facility] Start: 12-19-2023 ambulatory April Gudla OLS Facili ty:[facility] Start: 12-18-2023 ambulatory Dominic Lim Facility:[facility] Start: 12-17-2023 End: 12-18-2023 Emergency department patient visit Jerman Zavala Facility:[facility] Start: 12-12-2023 ambulatory Dominic Lim OLS Facili ty:[facility] Start: 12-11-2023 ambulatory Dominic Lim OLS Facili ty:[facility] Start: 12-04-2023 End: 12-04-2023 ambulatory [facility] Start: 12-04-2023 End: 12-04-2023 Postop follow up visit related to original px [facility] Work Phone: [facility] Comment on above: Spondylosis with mye lopathy, thoracic region (Primary Dx) Start: 12-03-2023 ambulatory Dominic Lim OLS Facili ty:[facility] Start: 11-30-2023 ambulatory April LUCERO Facili ty:[facility] Start: 11-28-2023 ambulatory Dominic Lim OLS Facili ty:[facility] Start: 11-27-2023 ambulatory Dominic Lim OLS Facili ty:[facility] Start: 11-26-2023 ambulatory Dominic Lim OLS Facili ty:[facility] Start: 11-21-2023 ambulatory Dominic Lim OLS Facili ty:[facility] Start: 11-09-2023 End: 11-20-2023 [facility] Start: 11-06-2023 End: 11-08-2023 Evaluation and management of inpatient HUAN Pat[facility] Start: 10-10-2023 End: 10-15-2023 Evaluation and management of inpatient 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) Start: 08-20-2023 End: 08-20-2023 ambulatory [place] [facility] Start: 08-03-2023 End: 08-03-2023 ambulatory [facility] Start: 08-02-2023 End: 08-02-2023 ambulatory MARLEEN SIGALA [facility] Start: 08-02-2023 End: 08-02-2023 Telemedicine consultation with patient [facility] Comment on above: Persistent atrial fi brillation (Multi) Start: 07-20-2023 End: 07-20-2023 ambulatory MARLEENKARLA SIGALA [facility] Start: 07-20-2023 End: 07-20-2023 Office outpatient visit 15 minutes Marleen Sigala DIRECTOR CHEMISTRY-GLOVE BOARDER, DNP Work Phone: [facility] Office Building Comment on above: Persistent atrial fi brillation (Multi) (Primary Dx) Start: 07-03-2023 End: 07-03-2023 Office outpatient visit 15 minutes Huan Mcdaniel MD Work Phone: [facility] Comment on above: Hematoma of right fo ot (Primary Dx); Anxiety Start: 06-10-2023 End: 06-10-2023 Emergency department patient visit Flavio Miles DO Work Phone: [facility] Comment on above: Contusion of right f oot, initial encounter (Primary Dx); Hematoma of right foot Start: 05-21-2023 End: 05-21-2023 ambulatory [facility] Start: 04-20-2023 End: 04-20-2023 Phys/qhp telephone evaluation 21-30 min Huan Mcdaniel MD Work Phone: [facility] Comment on above: Syndrome of inapprop riate [...] 25 minutes Huan Mcdaniel MD Work Phone: [facility] Comment on above: Morbid obesity with BMI of 40.0-44.9, adult (CMS/HCC) (Primary Dx); Diabetes 1.5, managed as type 2 (CMS/[facility]); Anxiety; Benign essential hypertension; Hyperlipidemia, unspecified hyperlipidemia type; Hypokalemia; Hypomagnesemia; Iron deficiency anemia secondary to inadequate dietary iron intake; Vitamin D deficiency; Age-related incipient cataract of both eyes Start: 03-06-2023 End: 03-06-2023 [facility] HUAN MCDANIEL [facility] Start: 12-12-2022 End: 12-12-2022 Office outpatient visit 25 minutes Huan Mcdaniel MD Work Phone: [facility] Comment on above: Anxiety (Primary Dx) ; [...] Morbid obesity with BMI of 40.0-44.9, adult ([facility]/HCC); Neurodermatitis; Personal history of colonic polyps; Primary osteoarthritis of both knees; Vitamin D deficiency Start: 10-13-2022 End: 10-13-2022 Phys/qhp telephone evaluation 21-30 min Huan Mcdaniel MD Work Phone: [facility] Comment on above: Chronic atrial fibri llation (CMS/HCC) (Primary Dx); Asthma, unspecified asthma severity, unspecified whether complicated, unspecified whether persistent; 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 Huan Mcdaniel Facility:[id number] Start: 06-05-2022 Adv care pln tlkd & alt dcsn maker docd Huan Mcdaniel Work Phone: [facility] Work Phone: Start: 06-02-2022 Chart Update Huan Mcdaniel Work Phone: [facility] Work Phone: Start: 06-01-2022 Chart Update Huan Mcdaniel Work Phone: [facility] Work Phone: Start: 05-24-2022 Office outpatient vi sit 25 minutes Huan Mcdaniel Work Phone: [address] Work Phone: Start: 05-11-2022 AUDIT Huan Mcdaniel Work Phone: [facility] Work Phone: Start: 04-04-2022 AUDIT Huan Mcdaniel Work Phone: [facility] Work Phone: Start: 03-28-2022 AUDIT Huan Mcdaniel Work Phone: [facility] Work Phone: Start: 03-07-2022 EPV, Provider: Huan Mcdaniel, Status: Pen, Time: 2:00 PM Huan Mcdaniel Work Phone: [facility] Work Phone: Start: 03-07-2022 Office outpatient vi sit 25 minutes Huan Patton Mcdaniel Work Phone: [facility] Work Phone: Start: 03-06-2022 Chart Update Huan O Mcdaniel Work Phone: [facility] Work Phone: Start: 02-10-2022 AUDIT Huan O Mcdaniel Work Phone: [facility] Work Phone: Start: 12-23-2021 AUDIT Huan O Mcdaniel Work Phone: [facility] Work Phone: Start: 12-02-2021 Office outpatient vi sit 25 minutes Huan O Mcdaniel Work Phone: [facility] Work Phone: Start: 12-02-2021 CHRISTINE, Provider : Huan Mcdaniel, Status: Pen, Time: 3:30 PM Huan Manriqueer Work Phone: [facility] Work Phone: Start: 12-01-2021 Chart Update Huan Pooja BanerjeeMcdaniel Work Phone: [facility] Work Phone: Start: 11-14-2021 AUDIT Huan O Mcdaniel Work Phone: [facility] Work Phone: Start: 10-21-2021 AUDIT Huan O Mcdaniel Work Phone: [facility] Work Phone: Start: 10-14-2021 AUDIT Huan O Mcdaniel Work Phone: [facility] Work Phone: Start: 10-11-2021 AUDIT Huan O Mcdaniel Work Phone: [facility] Work Phone: Start: 09-29-2021 AUDIT Huan O Mcdaniel Work Phone: [facility] Work Phone: Start: 09-26-2021 AUDIT Huan O Mcdaniel Work Phone: [facility] Work Phone: Start: 09-22-2021 AUDIT Huan O Mcdaniel Work Phone: [facility] Work Phone: Start: 09-01-2021 Office outpatient vi sit 25 minutes Huan Pooja Manriqueer Work Phone: [facility] Work Phone: Start: 08-25-2021 AUDIT Huan O Mcdaniel Work Phone: [facility] Work Phone: Start: 08-08-2021 AUDIT Huan O Mcdaniel Work Phone: [facility] Work Phone: Start: 08-01-2021 Chart Update Huan Manriqueer Work Phone: [facility] Work Phone: Start: 07-21-2021 AUDIT Huan O Mcdaniel Work Phone: [facility] Work Phone: Start: 06-20-2021 AUDIT Huan O Mcdaniel Work Phone: [facility] Work Phone: Start: 06-09-2021 Phys/qhp telephone evaluation 21-30 min Huan Manriqueer Work Phone: [facility] Work Phone: Start: 06-09-2021 HAWAFUVSARAH, Provider : Huan Mcdaniel, Status: Pen, Time: 1:00 PM Huan O Mcdaniel Work Phone: [facility] Work Phone: Start: 06-08-2021 Chart Update Huan O Mcdaniel Work Phone: [facility] Work Phone: Start: 05-25-2021 Phys/qhp telephone evaluation 21-30 min Huan O Mcdaniel Work Phone: [facility] [address] Work Phone: Start: 05-25-2021 CHRISTINE, Provider : Norman Valdivia, Status: Pen, Time: 10:45 AM Huan O Mcdaniel Work Phone: [facility] Work Phone: Start: 05-23-2021 AUDIT Huan O Mcdaniel Work Phone: [facility] Work Phone: Start: 04-22-2021 AUDIT Huan O Mcdaniel Work Phone: [facility] Work Phone: Start: 04-11-2021 AUDIT Huan O Mcdaniel Work Phone: [facility] Work Phone: Start: 03-24-2021 AUDIT Huan O Mcdaniel Work Phone: [facility] Work Phone: Start: 03-07-2021 AUDIT Huan O Mcdaniel Work Phone: [facility] Work Phone: Start: 02-11-2021 Chart Update Huan O Mcdaniel Work Phone: [facility] Work Phone: Start: 02-04-2021 Office outpatient vi sit 25 minutes Huan O Mcdaniel Work Phone: [facility] Work Phone: Start: 01-28-2021 AUDIT Huan O Mcdaniel Work Phone: [facility] Work Phone: Start: 01-25-2021 AUDIT Huan O Mcdaniel Work Phone: [facility] Work Phone: Start: 12-28-2020 AUDIT Huan O Mcdaniel Work Phone: [facility] Work Phone: Start: 12-20-2020 AUDIT Huan O Mcdaniel Work Phone: [facility] Work Phone: Start: 12-01-2020 AUDIT Huan O Mcdaniel Work Phone: [facility] Work Phone: Start: 11-05-2020 Office outpatient vi sit 25 minutes Huan O Mcdaniel Work Phone: [facility] Work Phone: Start: 11-05-2020 Chart Update Huan O Mcdaniel Work Phone: [facility] Work Phone: Start: 11-02-2020 JACINTASARAH, Provider : Huan Mcdaniel, Status: Pen, Time: 2:30 PM Huan O Mcdaniel Work Phone: [facility] Work Phone: Start: 11-01-2020 AUDIT Huan O Mcdaniel Work Phone: [facility] Work Phone: Start: 10-21-2020 Chart Update Huan O Mcdaniel Work Phone: [facility] Work Phone: Start: 10-21-2020 Chart Update Huan O Mcdaniel Work Phone: [facility] Work Phone: Start: 10-13-2020 AUDIT Huan Mcdaniel Work Phone: [facility] Work Phone: Start: 09-09-2020 AUDIT Huan Mcdaniel Work Phone: [facility] Work Phone: Start: 04-05-2020 Patient encounter procedure Huan Mcdaniel [facility] Work Phone: Start: 01-30-2020 Patient encounter procedure Huan Mcdaniel [facility] Work Phone: Start: 12-17-2019 Patient encounter procedure Huan Mcdaniel [facility] Work Phone: Start: 11-13-2019 Patient encounter procedure [facility]cd[facility]iel [facility] Work Phone: Start: 11-12-2019 [facility] Work Phone: Start: 10-30-2019 Patient encounter procedure [facility] Work Phone: Start: 10-20-2019 Patient encounter procedure [facility] Work Phone: Start: 10-15-2019 Patient encounter procedure [facility]qar [facility] Work Phone: Start: 09-22-2019 Patient encounter procedure [facility] Work Phone: Start: 09-19-2019 Patient encounter procedure [facility] Work Phone: Start: 09-17-2019 Patient encounter procedure [facility] Work Phone: Start: 09-15-2019 Patient encounter procedure Waqar Estrada [facility] Work Phone: Start: 09-11-2019 Patient encounter procedure Waqar [facility] Work Phone: Start: 09-10-2019 [facility] Work Phone: Start: 09-08-2019 Patient encounter procedure Waqar [facility] Work Phone: Start: 09-05-2019 Patient encounter procedure Waqar [facility] Work Phone: Start: 08-25-2019 Patient encounter procedure [facility] Work Phone: Start: 08-21-2019 Patient encounter procedure [facility] Work Phone: Start: 08-18-2019 Patient encounter procedure [facility] Work Phone: Start: 08-05-2019 Patient encounter procedure Huan Mcdaniel [facility] Work Phone: Start: 07-29-2019 Patient encounter procedure Huan Mcdaniel [facility] Work Phone: Start: 07-10-2019 Patient encounter procedure Huan Mcdaniel [facility] Work Phone: Start: 05-20-2019 Patient encounter procedure Huan Mcdaniel [facility] Work Phone: Start: 02-19-2019 Patient encounter procedure [facility] Work Phone: Start: 02-14-2019 Patient encounter procedure Huan Mcdaniel [facility] Work Phone: Start: 02-05-2019 Patient encounter procedure Huan Mcdaniel [facility] Work Phone: Procedures Date Procedure Procedure Detail Performing Clinician Start: 10-28-[address] April hart MD Start: 08-13-2024 Cardiovascular stress test using pharmacologic stress agent Dr. April Mullen MD Start: 07-23-2024 Evaluation of diagnostic study results Dr. April Mullen MD Start: 07-01-2024 Colonoscopy Dominic LUCERO Start: 06-02-2024 Measurement of renal function Dr. April Mullen MD Comment on above: GFR Calc Start: 05-27-2024 Measurement of renal function Dr. April Mullen MD Comment on above: GFR Calc Start: 05-12-2024 Measurement of renal function Dr. April Mullen MD Comment on above: GFR Calc Start: 05-12-2024 Vitamin D, 25-hydroxy measurement Dr. Darvin Mullen MD Comment on above: Vitamin D 25(OH) Status Range Deficiency <20 ng/mL (50nmol/L) Insufficiency 20 - 30 ng/mL (50 - 75 nmol/L) Sufficiency 30 - 100 ng/mL (75 - 250 nmol/L) Toxicity >100 ng/mL (>250 nmol/L) Start: 03-28-2024 Measurement of occult blood in stool specimen using immunoassay Dominic LUCERO Start: 11-20-2023 End: 11-20-2023 Renal function panel Danny Deng MD Work Phone: Start: 11-20-2023 Glucose quantitative blood xcpt reagent strip Sai Marie MD Work Phone: Start: 11-20-2023 Drug screen quantitative vancomycin Eulalia Champagne MD Work Phone: Start: 11-19-2023 Glucose quantitative blood xcpt reagent strip Sai Marie MD Work Phone: Start: 11-19-2023 Cyanocobalamin vitamin b-12 Monique finn MD Work Phone: Start: 11-19-2023 Glucose quantitative blood xcpt reagent strip Sai Marie MD Work Phone: Start: 11-19-2023 Glucose quantitative blood xcpt reagent strip Sai Marie MD Work Phone: Start: 11-19-2023 Drug screen quantitative vancomycin Linda Jamison Lesly PharmD Work Phone: Start: 11-19-2023 End: 11-19-2023 Renal function panel Danny Deng MD Work Phone: Start: 11-19-2023 Thyrotropin [Units/volume] in Serum or Plasma Eliza Alonso PA-C Work Phone: Start: 11-18-2023 Glucose quantitative blood xcpt reagent strip Sai Marie MD Work Phone: Start: 11-18-2023 Glucose quantitative blood xcpt reagent strip Sai Marie MD Work Phone: Start: 11-18-2023 Glucose quantitative blood xcpt reagent strip Sai Marie MD Work Phone: Start: 11-18-2023 Glucose quantitative blood xcpt reagent strip Sai Marie MD Work Phone: Start: 11-18-2023 Renal function panel Danny Deng MD Work Phone: Start: 11-17-2023 Glucose quantitative blood xcpt reagent strip Sai Marie MD Work Phone: Start: 11-17-2023 Glucose quantitative blood xcpt reagent strip Sai Marie MD Work Phone: Start: 11-17-2023 Glucose quantitative blood xcpt reagent strip Sai Marie MD Work Phone: Start: 11-17-2023 Glucose quantitative blood xcpt reagent strip Ru Ortega MD Work Phone: Start: 11-17-2023 Renal function panel Danny Deng MD Work Phone: Start: 11-16-2023 Glucose quantitative blood xcpt reagent strip Ru Ortega MD Work Phone: Start: 11-16-2023 Renal function panel Danny Deng MD Work Phone: Start: 11-16-2023 Insertion picc w/o img gdn 5 yr/> Danny Deng MD Work Phone: Start: 11-16-2023 Radiologic exam chest single view Danny Deng MD Work Phone: [...] Work Phone: Start: 11-15-2023 Renal function panel Danny Deng MD Work Phone: Start: 11-15-2023 Glucose quantitative blood xcpt reagent strip Ru Ortega MD Work Phone: Start: 11-15-2023 Glucose quantitative blood xcpt reagent strip Ru Ortega MD Work Phone: Start: 11-14-2023 Glucose quantitative blood xcpt reagent strip Ru Ortega MD Work Phone: Start: 11-14-2023 XR tomography Unspecified body region Giovanna Coles MD Work Phone: Start: 11-14-2023 PULSE OXIMETRY, CONTINUOUS Carolina kc MD Work Phone: Start: 11-14-2023 Chloride toby Vidal MD Work Phone: Start: 11-14-2023 End: 11-14-2023 Cul bact xcpt urine blood/stool aerobic isol Braulio Oneil MD PhD Work Phone: Start: 11-14-2023 Chloride bld Miles Vidal MD Work Phone: Start: 11-14-2023 PREPARE RBC Miles Vidal MD Work Phone: Start: 11-14-2023 End: 11-14-2023 Allograft for spine surgery only morselized Braulio Oneil MD PhD Work Phone: Start: 11-14-2023 Glucose quantitative blood xcpt reagent strip Ru Ortega MD Work Phone: Start: 11-14-2023 Glucose quantitative blood xcpt reagent strip Ru Ortega MD Work Phone: Start: 11-14-2023 Renal function panel Monique Anders MD Work Phone: Start: 11-13-2023 Radiologic exam chest single view Jadyn Chan MD Work Phone: Start: 11-13-2023 Glucose quantitative blood xcpt reagent strip Ru Ortega MD Work Phone: Start: 11-13-2023 EXTRA URINE DRAPER TUBE Jadyn Chan MD Work Phone: Start: 11-13-2023 Urinalysis complete W Reflex Culture panel - Urine Jadyn Chan MD Work Phone: Start: 11-13-2023 Urnls dip stick/tablet reagent auto microscopy Jadyn Chan MD Work Phone: Start: 11-13-2023 Glucose quantitative blood xcpt reagent strip Ru Ortega MD Work Phone: Start: 11-13-2023 Blood typing serologic rh (d) Monqiue Jose MD Work Phone: Start: 11-13-2023 Glucose quantitative blood xcpt reagent strip Ru Ortega MD Work Phone: Start: 11-13-2023 Drug screen quantitative vancomycin Eulalia Champagne MD Work Phone: Start: 11-13-2023 Cul bact xcpt urine blood/stool aerobic isol Danny Deng MD Work Phone: Start: 11-13-2023 Biopsy bone trocar/needle deep Danny south MD Work Phone: Start: 11-13-2023 Glucose quantitative [...] MD Work Phone: Start: 11-12-2023 Basic metabolic panel calcium total Danny Deng MD Work Phone: Start: 11-12-2023 Blood typing serologic rh (d) Danny merida MD Work Phone: Start: 11-11-2023 Glucose quantitative blood xcpt reagent strip Ru Ortega MD Work Phone: Start: 11-11-2023 Renal function panel Danny Deng MD Work Phone: Start: 11-11-2023 [...] MD Work Phone: Start: 11-10-2023 Drug screen quantitative vancomycin Eulalia Champagne MD Work Phone: Start: 11-10-2023 Glucose quantitative blood xcpt reagent strip Ru Ortega MD Work Phone: Start: 11-09-2023 Glucose quantitative blood xcpt reagent strip Ru Ortega MD Work Phone: Start: 11-09-2023 Glucose quantitative blood xcpt reagent strip Ru Ortega MD Work Phone: Start: 11-09-2023 Glucose quantitative blood xcpt reagent strip Ru Ortega MD Work Phone: Start: 11-09-2023 Culture bacterial blood aerobic w/id isolates Eulalia Champagne MD Work Phone: Start: 11-09-2023 Ecg routine ecg w/least 12 lds trcg only w/o i&r Giovanna Coles MD Work Phone: Start: 11-09-2023 Glucose quantitative blood xcpt reagent strip Ru Ortega MD Work Phone: Start: 11-09-2023 Glucose quantitative blood xcpt reagent strip Ru Ortega MD Work Phone: Start: 11-09-2023 Urnls dip stick/tablet rgnt auto w/o microscopy Eulalia Champagne MD Work Phone: Start: 11-09-2023 Comprehensive metabolic panel Eulalia buchanan MD Work Phone: Start: 10-15-2023 Glucose quantitative blood xcpt reagent strip Renetta Romero MD Work Phone: Start: 10-15-2023 Glucose quantitative blood xcpt reagent strip Renetta Romero MD Work Phone: Start: 10-15-2023 Glucose quantitative blood xcpt reagent strip Renetta Romero MD Work Phone: Start: 10-15-2023 Basic metabolic panel calcium total Dorota I Wittel DIRECTOR CHEMISTRY-GLOVE BOARDER Work Phone: Start: 10-14-2023 Glucose quantitative blood xcpt reagent strip Renetta Romero MD Work Phone: Start: 10-14-2023 Glucose quantitative blood xcpt reagent strip Renetta Romero MD Work Phone: Start: 10-14-2023 Glucose quantitative blood xcpt reagent strip Renetta Romero MD Work Phone: Start: 10-14-2023 RESPIRATORY CARE EVALUATION ONLY Renetta Romero MD Work Phone: Start: 10-14-2023 Glucose quantitative blood xcpt reagent strip Renetta Romero MD Work Phone: Start: 10-14-2023 Basic metabolic panel calcium total Dorota I Wittel DIRECTOR CHEMISTRY-GLOVE BOARDER Work Phone: Start: 10-13-2023 Glucose quantitative blood xcpt reagent strip Renetta Romero MD Work Phone: Start: 10-13-2023 Glucose quantitative blood xcpt reagent strip Renetta Romero MD Work Phone: Start: 10-13-2023 Glucose quantitative blood xcpt reagent strip Renetta Romero MD Work Phone: Start: 10-13-2023 Glucose quantitative blood xcpt reagent strip Renetta Romero MD Work Phone: Start: 10-13-2023 Basic metabolic panel calcium total Dorota I Wittel DIRECTOR CHEMISTRY-GLOVE BOARDER Work Phone: Start: 10-12-2023 Glucose quantitative blood xcpt reagent strip Renetta Romero MD Work Phone: Start: 10-12-2023 Glucose quantitative blood xcpt reagent strip Renetta Romero MD Work Phone: Start: 10-12-2023 Glucose quantitative blood xcpt reagent strip Renetta Romero MD Work Phone: Start: 10-12-2023 Glucose quantitative blood xcpt reagent strip Renetta Romero MD Work Phone: Start: 10-12-2023 Basic metabolic panel calcium total Ru Mills DO Work Phone: Start: 10-11-2023 Glucose quantitative blood xcpt reagent strip Renetta Romero MD Work Phone: Start: 10-11-2023 Glucose quantitative blood xcpt reagent strip Renetta Romero MD Work Phone: Start: 10-11-2023 Glucose quantitative blood xcpt reagent strip Renetta Romero MD Work Phone: Start: 10-11-2023 Glucose quantitative blood xcpt reagent strip Renetta Romero MD Work Phone: Start: 10-11-2023 Basic metabolic panel calcium total Love A Schwemley DIRECTOR CHEMISTRY-GLOVE BOARDER Work Phone: Start: 10-10-2023 Glucose quantitative blood xcpt reagent strip Renetta Romero MD Work Phone: Start: 10-10-2023 Glucose quantitative blood xcpt reagent strip Renetta Romero MD Work Phone: Start: 10-10-2023 End: 10-10-2023 Basic metabolic panel calcium total Renetta Romero MD Work Phone: Start: 10-10-2023 EXTRA TUBES Renetta Romero MD Work Phone: Start: 10-10-2023 LAVENDER TOP Renetta Romero MD Work Phone: Start: 10-10-2023 End: 10-10-2023 Basic metabolic panel calcium total Love A Schwemley DIRECTOR CHEMISTRY-GLOVE BOARDER Work Phone: Start: 10-10-2023 Culture bacterial quanttative colony count urine Flavio Miles DO Work Phone: Start: 10-10-2023 Urinalysis microscopic panel - Urine Qualitative by Automated Flavio Miles DO Work Phone: Start: 10-10-2023 Assay of troponin quantitative Flavio Miles DO Work Phone: Start: 10-10-2023 Ct abdomen & pelvis w/o contrast material Flavio Miles DO Work Phone: Start: 10-10-2023 End: 10-10-2023 Basic metabolic panel calcium total Flavio Miles DO Work Phone: Start: 10-10-2023 Troponin I.cardiac panel - Serum or Plasma by High sensitivity method Flavio Miles DO Work Phone: Start: 10-10-2023 Radiologic exam chest single view Louise Miles DO Work Phone: Start: 10-10-2023 Ecg routine ecg w/least 12 lds trcg only w/o i&r Flavio Miles DO Work Phone: Start: 08-20-2023 FOLLOW UP IN FAMILY MEDICINE MARLEEN SIGALA Start: 08-03-2023 ALKALINE PHOSPHATASE, ISOENZYMES HUAN ESPINOSA Start: 08-03-2023 GAMMA-GLUTAMYL TRANSFERASE HUAN MCDANIEL Start: 08-03-2023 Hepatic function 2000 panel - Serum or Plasma HUAN MCDANIEL Start: 08-02-2023 AMB REFERRAL TO CLINICAL PHARMACY HUAN MCDANIEL Start: 06-10-2023 XR FOOT RIGHT 3+ VIEWS HUAN MCDANIEL Start: 06-10-2023 Radex foot complete minimum 3 views Flavio Miles DO Work Phone: Start: 05-21-2023 ALKALINE PHOSPHATASE, ISOENZYMES HUAN ESPINOSA Start: 05-21-2023 CBC panel - Blood by Automated count HUAN MCDANIEL Start: 05-21-2023 Comprehensive metabolic 2000 panel - Serum or Plasma HUAN MCDANIEL Start: 05-21-2023 Ferritin [Mass/volume] in Serum or Plasma HUAN MCDANIEL Start: 05-21-2023 IRON AND TIBC HUAN MCDANIEL Start: 05-21-2023 VITAMIN D 25-HYDROXY,TOTAL HUAN MCDANIEL Start: 03-06-2023 CBC panel - Blood by Automated count HUAN MCDANIEL Start: 03-06-2023 Comprehensive metabolic 2000 panel - Serum or Plasma HUAN MCDANIEL Start: 03-06-2023 Cyanocobalamin vitamin b-12 HUAN MCDANIEL Start: 03-06-2023 Hemoglobin A1c/Hemoglobin.total in Blood HUAN MCDANIEL Start: 03-06-2023 Lipid panel HUAN MCDANIEL Start: 03-06-2023 Magnesium [Mass/volume] in Serum or Plasma HUAN MCDANIEL Start: 03-06-2023 Lipid 1996 panel - Serum or Plasma Huan Mcdaniel MD Work Phone: Start: 09-09-2022 Lipid 1995 panel - Serum or Plasma Huan Mcdaniel MD Work Phone: Start: 11-13-2019 Lipid panel Huan Mcdaniel Start: 07-11-2019 Lipid panel Huan Mcdaniel Start: 05-20-2019 25 hydroxy includes fractions if performed Huan Mcdaniel Start: 05-20-2019 Basic metabolic 1998 panel - Serum or Plasma Huan Mcdaniel Start: 05-20-2019 Cyanocobalamin vitamin b-12 Huan Mcdaniel Start: 05-20-2019 Hemoglobin glycosylated a1c Huan Mcdaniel Start: 05-20-2019 Noninvasive colorectal cancer DNA and occult blood screening [Presence] in Stool Huan Mcdaniel Start: 02-14-2019 Echocardiography Huan Mcdaniel Start: 02-14-2019 Mammography Huan Mcdaniel MD Work Phone: Start: 02-13-2019 Echocardiography Huan Mcdaniel Start: 02-08-2019 Echocardiography Huan Mcdaniel Start: 02-05-2019 Echocardiography Huan Mcdaniel Start: 02-05-2019 MG Breast screening Huan Mcdaniel Start: 02-05-2019 Thyrotropin [Units/volume] in Serum or Plasma Huan Mcdaniel MD Work Phone: Start: 09-22-2011 Colonoscopy Flavio Miles DO Work Phone: Start: 09-22-2011 Colonoscopy Huan Mcdaniel Work Phone: Start: 04-09-2000 Cholecystectomy Huan Mcdaniel Work Phone: Start: 04-09-1981 Ligation of fallopian tube Huan solomon Work Phone: section Huan Banerjeebelinda r Cholecystectomy Huan Mcdaniel Comment on above: Completed: 2000 End: 06-07-1997 Colonoscopy Huan Mcdaniel Colonoscopy Huan Mcdaniel Dilation and curettage Huan Mcdaniel Comment on above: 1966 and 1978; Ligation of fallopian tube R lanre Mcdaniel Comment on above: Completed: 1981 Plan of Treatment Date Care Activity Detail Author Start: 01-18-2033 DTaP/Tdap/Td Vaccine s (2 - Td or Tdap) DTaP/Tdap/Td Vaccines (2 - Td or Tdap) [facility] Start: 01-18-2033 [facility] Start: 11-18-2028 Cyanocobalamin vitam in b-12 Vitamin B12 [facility] Start: 11-18-2028 [facility] Start: 03-06-2028 Cyanocobalamin vitam in b-12 Vitamin B12 [facility] Start: 09-10-2027 Cyanocobalamin vitam in b-12 Vitamin B12 [facility] Start: 12-08-2024 Influenza vaccination Influenz a Vaccine (Season Ended) [facility] Start: 11-18-2024 Thyroid stimulating hormone measurement [facility] Start: 11-12-2024 End: 11-12-2024 Patient encounter procedure [facility] Comment on above: Valve Clinic- Initia l Visit - 5M Walk,EKG,KCCQ Start: 10-28-2024 Patient discharge [facility] Start: 07-25-2024 Screening for malign ant neoplasm of colon [facility] Start: 07-18-2024 End: 07-18-2024 ambulatory [facility] Start: 07-18-2024 End: 07-18-2024 Telemedicine consultation with patient 07/18/2024 1:00 PM EDT Telemedicine [facility] [address] [place] [address] Marleen Sigala, DIRECTOR CHEMISTRY-GLOVE BOARDER, DNP [address], [address] [place] [address] [facility] Start: 07-01-2024 Colsc flx w/rmvl of tumor polyp lesion snare tq COLONOSCOPY W/LESION REMOVAL [facility] Start: 07-01-2024 Endoscopy upper smal l intestine w/biopsy SMALL BOWEL ENDOSCOPY/BIOPSY [facility] Start: 07-01-2024 Patient discharge [facility] Start: 06-18-2024 Evaluation of diagno stic study results [facility] Start: 04-09-2024 Advance Directive Discussion Advance Directive Discussion [facility] Start: 03-28-2024 [facility] Start: 03-06-2024 Lipid panel [facility] Start: 02-28-2024 End: 02-28-2024 ambulatory [facility] Neurosurgery Start: 02-28-2024 End: 02-28-2024 Patient encounter procedure 02/28/2024 10:00 AM EST Office Visit [facility] Neurosurgery [address] [place] [phone] Braulio Oneil [place] PhD [address] [place] [id number] [facility] Start: 12-27-2023 End: 12-26-2024 PET+CT Bone from skull base to mid-thigh W [id number] IV NM PET CT bone skull base to mid thigh Imaging Routine Vertebral osteomyelitis (Multi) Discitis, unspecified, thoracic region Expected: 12/27/2023 (Approximate), Expires: 12/26/2024 [facility] Service Area Work Phone: Comment on above: Expected: 12/27/2023 (Approximate), Expires: 12/26/2024 Start: 12-26-2023 End: 12-26-2023 ambulatory [facility] Start: 12-26-2023 End: 12-26-2023 Telemedicine consultation with patient 12/26/2023 10:20 AM EDT Telemedicine [facility] [address] [place] [address] [place] [address] [place] [address] [facility] Start: 12-18-2023 End: 12-18-2023 ambulatory [facility] Start: 12-18-2023 End: 12-18-2023 Patient encounter procedure 12/18/2023 1:00 PM EDT Office Visit [facility] [address] [place] [id number] Huan Mcdaniel MD [address] [facility] [place] [address] [facility] Start: 12-09-2023 Covid-19 Vaccine ( season) Covid-19 Vaccine ( season) [facility] Start: 12-09-2023 COVID-19 Vaccine ( season) COVID-19 Vaccine ( season) [facility] Start: 12-09-2023 COVID-19 Vaccine ( season) COVID-19 Vaccine ( season) [facility] Start: 12-09-2023 Influenza vaccination [facility] Start: 12-04-2023 End: 11-19-2024 NM Whole body Bone Views [facility] Work Phone: Start: 12-04-2023 End: 12-04-2023 ambulatory [facility] Neurosurgery Start: 11-20-2023 End: 08-19-2024 25-hydroxyvitamin D3 [Mass/volume] in Serum or Plasma Vitamin D 25-Hydroxy,Total (for eval of Vitamin D levels) Lab Routine Vitamin D deficiency Expected: 11/20/2023 (Approximate), Expires: 08/19/2024 [facility] Work Phone: Comment on above: Expected: 11/20/2023 (Approximate), Expires: 08/19/2024 Start: 11-20-2023 End: 08-19-2024 Comprehensive metabolic 2000 panel - Serum or Plasma Comprehensive metabolic panel Lab Routine Diabetes 1.5, managed as type 2 (Multi) Expected: 11/20/2023 (Approximate), Expires: 08/19/2024 [facility] Work Phone: Comment on above: Expected: 11/20/2023 (Approximate), Expires: 08/19/2024 Start: 11-20-2023 End: 08-19-2024 Hemoglobin A1c/Hemoglobin.total in Blood Hemoglobin A1C Lab Routine Diabetes 1.5, managed as type 2 (Multi) Expected: 11/20/2023 (Approximate), Expires: 08/19/2024 [facility] Service Area Work Phone: Comment on above: Expected: 11/20/2023 (Approximate), Expires: 08/19/2024 Start: 11-20-2023 End: 08-19-2024 Magnesium [Mass/volume] in Serum or Plasma Magnesium Lab Routine Diabetes 1.5, managed as type 2 (Multi) Expected: 11/20/2023 (Approximate), Expires: 08/19/2024 [facility] Work Phone: Comment on above: Expected: 11/20/2023 (Approximate), Expires: 08/19/2024 Start: 11-16-2023 End: 11-15-2024 Broad Range PCR-Bacteria [facility] Work Phone: Start: 09-12-2023 Screening for malign ant neoplasm of colon [facility] Start: 09-10-2023 Lipid panel Lipid Panel [facility] Start: 08-20-2023 End: 08-20-2023 Telemedicine consultation with patient 08/20/2023 3:30 PM EDT Telemedicine [facility] [address] [place] [phone] Huan Mcdaniel MD [address] [facility], [address] [place] [phone] [facility] Start: 08-10-2023 End: 08-10-2023 Patient encounter procedure 08/10/2023 2:30 PM EDT Appointment [facility] [address] [place] [address] [facility] Start: 07-20-2023 End: 07-20-2023 Patient encounter procedure 07/20/2023 2:30 PM EDT Office Visit [facility] Office [facility] [address] [place] [phone] Marleen Sigala, DIRECTOR CHEMISTRY-GLOVE BOARDER, DNP [address] [place] [address] [facility] [place] [address] [facility] Office [facility] Start: 06-06-2023 Hemoglobin A1c measurement [facility] Start: 06-06-2023 Medicare Annual Well ness Visit [facility] Start: 05-25-2023 End: 05-25-2023 Patient encounter procedure 05/25/2023 11:30 AM EST Office Visit [facility] Office [facility] [address] [place] [phone] Marleen Sigala, DIRECTOR CHEMISTRY-GLOVE BOARDER, DNP [address] [facility], [address] [place] [phone] [facility] Office Building Start: 05-23-2023 FUV, Provider: Norman Valdivia, Status: Pen, Time: 11:00 AM FUV, Provider: Norman Valdivia, Status: Pen, Time: 11:00 AM [facility]cl[facility]Cjwf[facility]anna [facility] Work Phone: Start: 12-28-2022 RSV High Risk: (Elde rly (60+) or Population) (1 - 1-dose 75+ series) RSV High Risk: (Elderly (60+) or Population) (1 - 1-dose 75+ series) [facility] Start: 12-28-2022 RSV Vaccine (1 - 1-d ose 75+ series) RSV Vaccine (1 - 1-dose 75+ series) [facility] Start: 12-12-2022 End: 12-12-2022 Patient encounter procedure 12/12/2022 1:00 PM EDT Office Visit [facility] [address] [place] [phone] Huan Mcdaniel MD [address] [facility] [place] [address] [facility] Start: 12-10-2022 Hemoglobin A1c measurement Diabetes: Hemoglobin A1C [facility] Start: 12-08-2022 COVID-19 Vaccine ( season) COVID-19 Vaccine ( season) [facility] Start: 12-08-2022 Influenza vaccination Influenza Vacc ine (#1) [facility] Start: 12-08-2022 [facility] Start: 10-13-2022 End: 10-14-2023 CBC panel - Blood by Automated count CBC Lab Routine Iron deficiency anemia secondary to inadequate dietary iron intake Expected: 10/13/2022 (Approximate), Expires: 10/14/2023 [facility] Service Area Work Phone: Comment on above: Expected: 10/13/2022 (Approximate), Expires: 10/14/2023 Start: 10-13-2022 End: 10-20-2022 Clostridioides difficile toxin A+B tcdA+tcdB genes [Presence] in Stool by SEFERINO with probe detection C. 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, without long-term current use of insulin ([facility]) Expected: 10/13/2022 (Approximate), Expires: 10/14/2023 [facility] Work Phone: Comment on above: Expected: 10/13/2022 (Approximate), Expires: 10/14/2023 Start: 06-05-2022 FUV, Provider: Huan Mcdaniel, Status: Pen, Time: 11:00 AM FUV, Provider: Huan Mcdaniel, Status: Pen, Time: 11:00 AM [facility] Work Phone: Start: 05-24-2022 FUV, Provider: Norman Valdivia, Status: Pen, Time: 11:15 AM FUV, Provider: Norman Valdivia, Status: Pen, Time: 11:[address] Work Phone: Start: 03-07-2022 EPV, Provider: Huan Mcdaniel, Status: Pen, Time: 2:00 PM EPV, Provider: Huan Mcdaniel, Status: Pen, Time: 2:00 PM [facility] Work Phone: Start: 03-01-2022 COVID-19 Vaccine (3 - Booster for Rosa series) COVID-19 Vaccine (3 - Booster for Rosa series) [facility] Start: 12-02-2021 VIRFUVHOME, Provider : Huan Mcdaniel, Status: Pen, Time: 3:30 PM VIRFUVHOME, Provider: Huan Mcdaniel, Status: Pen, Time: 3:30 PM [facility] Work Phone: Start: 09-21-2021 Screening for malign ant neoplasm of colon [facility] Start: 09-13-2021 FUV, Provider: Huan Mcdaniel, Status: Pen, Time: 1:00 PM FUV, Provider: Huan Mcdaniel, Status: Pen, Time: 1:00 PM [facility] Work Phone: Start: 09-01-2021 VIRFUVHOME, Provider : Huan Mcdaniel, Status: Pen, Time: 11:30 AM VIRFUVHOME, Provider: Huan Mcdaniel, Status: Pen, Time: 11:30 AM [facility] Work Phone: Start: 06-09-2021 EPV, Provider: Huan Mcdaniel, Status: Pen, Time: 1:00 PM EPV, Provider: Huan Mcdaniel, Status: Pen, Time: 1:00 PM [facility] Work Phone: Start: 05-25-2021 FUV, Provider: Norman Valdivia, Status: Pen, Time: 10:45 AM FUV, Provider: Norman Valdivia, Status: Pen, Time: 10:45 AM [facility] Work Phone: Start: 05-24-2021 FUV, Provider: Rama Villagran, Status: Pen, Time: 11:00 AM FUV, Provider: Rama Villagran, Status: Pen, Time: 11:00 AM [facility] Work Phone: Start: 05-06-2021 EPV, Provider: Huan Mcdaniel, Status: Pen, Time: 4:00 PM EPV, Provider: Huan Mcdaniel, Status: Pen, Time: 4:00 PM [facility] Work Phone: Start: 02-04-2021 VIRFUVHOME, Provider : Huan Mcdaniel, Status: Pen, Time: 4:30 PM VIRFUVHOME, Provider: Huan Mcdaniel, Status: Pen, Time: 4:30 PM [facility] Work Phone: Start: 11-02-2020 EPV, Provider: Huan Mcdaniel, Status: Pen, Time: 2:30 PM EPV, Provider: Huan Mcdaniel, Status: Pen, Time: 2:30 PM [facility] Work Phone: Start: 02-15-2020 Screening for malign ant neoplasm of breast Mammogram [facility] Start: 02-06-2020 Thyroid stimulating hormone measurement TSH Level [facility] Start: 02-14-2019 Echocardiography Echocardiogram [facility] Work Phone: Start: 02-14-2019 MG Breast screening Mamm - Scr eening Mammogram w/ Tomosynthesis [facility] Work Phone: Start: 03-04-2014 Zoster Vaccines (2 of 3) Zoste r Vaccines (2 of 3) [facility] Start: 03-04-2014 [facility] Start: 12-28-2012 Screening for osteoporosis Bone Density Screening [facility] Start: 2007 RSV patient s and/or patients aged 60+ years (1 - 1-dose 60+ series) RSV patients and/or patients aged 60+ years (1 - 1-dose 60+ series) [facility] Start: 2007 [facility] Start: 12-28-1997 Pneumococcal Vaccine : 50+ (1 of 1 - PCV) Pneumococcal Vaccine: 50+ (1 of 1 - PCV) [facility] Start: 12-28-1997 Shingrix Vaccine (1 of 2) Shingrix Vaccine (1 of 2) [facility] Start: 12-28-1992 Diabetes Screening Diabetes Screenin g [facility] Start: 12-28-1969 DTaP/Tdap/Td Vaccine s (1 - Tdap) DTaP/Tdap/Td Vaccines (1 - Tdap) [facility] Start: 12-28-1966 Urine microalbumin profile DTaP,Tdap,Td Vaccine (1 - Tdap) [facility] Start: 12-28-1966 Urine screening for protein [facility] Start: 12-28-1965 Anxiety Screening Anxiety Screening [facility] Start: 12-28-1965 Depression Screening Depression Scre ening [facility] Start: 12-28-1965 Hepatitis C screening [facility] Start: 12-28-1957 Diabetic foot examination [facility] Start: 12-28-1957 Glaucoma screening [facility] Start: 12-28-1957 Ophthalmic examinati on and evaluation Diabetes: Retinopathy Screening [facility] Start: 1947 Annual wellness visit Medicare Initial Physical (IPPE) [facility] Start: 1947 Diabetes: Celiac Dis ease Screening Diabetes: Celiac Disease Screening [facility] Start: 1947 Medicare Annual Well ness Visit Medicare Annual Wellness Visit (AWV) [facility] Start: 1947 Screening for malign ant neoplasm of colon [facility] Start: 1947 Screening for osteoporosis [facility] Start: 1947 Thyroid stimulating hormone measurement TSH Level [facility] Start: 1947 [facility] End: 11-15-2023 Art Therapy eval and treat [facility] Work Phone: End: 01-01-2025 C reactive protein [Mass/volume] in Serum or Plasma [facility] Work Phone: End: 12-26-2024 C reactive protein [Mass/volume] in Serum or Plasma C-reactive protein Lab Routine Vertebral osteomyelitis (Multi) Once a week for 3 Occurrences starting 12/27/2023 until 12/26/2024 [facility] Work Phone: Comment on above: Once a week for 3 Oc currences starting 12/27/2023 until 12/26/2024 End: 01-01-2025 CBC W Auto Differential panel - Blood [facility] Service Area Work Phone: End: 12-26-2024 CBC W Auto Differential panel - Blood CBC and Auto Differential Lab Routine Vertebral osteomyelitis (Multi) Once a week for 3 Occurrences starting 12/27/2023 until 12/26/2024 [facility] Work Phone: Comment on above: Once a week for 3 Oc currences starting 12/27/2023 until 12/26/2024 CBC W Auto Different ial panel - Blood [facility] End: 01-01-2025 Comprehensive metabolic 2000 panel - Serum or Plasma [facility] Work Phone: End: 12-26-2024 Comprehensive metabolic 2000 panel - Serum or Plasma Comprehensive metabolic panel Lab Routine Vertebral osteomyelitis (Multi) Once a week for 3 Occurrences starting 12/27/2023 until 12/26/2024 [facility] Work Phone: Comment on above: Once a week for 3 Oc currences starting 12/27/2023 until 12/26/2024 ECG 12 lead ECG 12 lead ECG STAT 10/10/2023 1:16 AM EDT [facility] Work Phone: Electrocardiogram, 12-lead PRN ACS symptoms Electrocardiogram, 12-lead PRN ACS symptoms ECG Routine As needed until discontinued starting 10/10/2023 [facility] Work Phone: Comment on above: As needed until disc ontinued starting 10/10/2023 Electrocardiogram, 12-lead PRN ACS symptoms [facility] Work Phone: End: 10-10-2023 Extra Urine Draper Tube Extra Urine Draper Tube Lab Timed Once for 1 Occurrences starting 10/10/2023 until 10/10/2023 [facility] Work Phone: Comment on above: Once for 1 Occurrenc es starting 10/10/2023 until 10/10/2023 Glucose [Mass/volume ] in Serum or Plasma POCT Glucose Point of Care Testing - Docked Device Routine As needed (Lab) until discontinued starting 10/10/2023 [facility] Work Phone: Comment on above: As needed (Lab) unti l discontinued starting 10/10/2023 Glucose [Mass/volume ] in Serum or Plasma [facility] Work Phone: End: 10-14-2023 Hemoglobin.gastrointesti nal [Presence] in Stool --1st specimen Occult Blood, Stool Microbiology Routine Once (Lab) for 1 Occurrences starting 10/14/2023 until 10/14/2023 [facility] Work Phone: Comment on above: Once (Lab) for 1 Occ urrences starting 10/14/2023 until 10/14/2023 Lipid panel Lipid Panel [facility] Work Phone: Comment on above: Approx [id number] End: 11-16-2023 Methicillin resistant Staphylococcus aureus [Presence] in Nose by Organism specific culture [facility] Work Phone: End: 10-15-2023 Music Therapy eval and treat Music Therapy eval and treat Therapeutic Recreation Orderables Routine Until therapy completed for 1 Occurrences starting 10/15/2023 until 10/15/2023 [facility] Service Area Work Phone: Comment on above: Until therapy comple kayla for 1 Occurrences starting 10/15/2023 until 10/15/2023 End: 11-19-2023 Music Therapy eval and treat [facility] Work Phone: Patient Education GI Bleeding Ca uses and Tests [facility] Work Phone: Patient referral [facility] Work Phone: End: 11-13-2023 Prepare RBC: 1 Units [facility] Work Phone: End: 11-13-2023 Surgical pathology study [facility] Work Phone: End: 10-10-2023 Urinalysis complete W Reflex Culture panel - Urine Urinalysis with Reflex Culture and Microscopic Lab STAT Once (Lab) for 1 Occurrences starting 10/10/2023 until 10/10/2023 [facility] Service Area Work Phone: Comment on above: Once (Lab) for 1 Occ urrences starting 10/10/2023 until 10/10/2023 Urinalysis complete W Reflex Culture panel - Urine Urinalysis with Reflex Culture and Microscopic Lab STAT 10/10/2023 3:28 AM EDT [facility] Work Phone: End: 11-22-2023 Vancomycin [Mass/volume] in Serum or Plasma [facility] Work Phone: End: 01-01-2025 Vancomycin [Mass/volume] in Serum or Plasma --trough [facility] Work Phone: End: 12-26-2024 Vancomycin [Mass/volume] in Serum or Plasma --trough Vancomycin, trough Lab Routine Vertebral osteomyelitis (Multi) Once a week for 3 Occurrences starting 12/27/2023 until 12/26/2024 [facility] Work Phone: Comment on above: Once a week for 3 Oc currences starting 12/27/2023 until 12/26/2024 [facility] [employer] [employer] Work Phone: NEGATED: Highlighted row has been ruled out! Planned Goals not documented [facility] Work Phone: Immunizations Immunization Date Immunization Notes Care Provider [facility] 01-02-2024 influenza, high dose seasonal, preservative-free Dominic Lim [facility] 01-18-2023 influenza, seasonal, injectable Huan Mcdaniel MD Work Phone: [facility] Work Phone: 01-18-2023 Pneumococcal conjuga te vaccine, 20-valent (PREVNAR 20) Huan Mcdaniel MD Work Phone: [facility] Work Phone: 01-18-2023 tetanus toxoid, redu sarah diphtheria toxoid, and acellular pertussis vaccine, adsorbed Huan Mcdaniel MD Work Phone: [facility] 01-18-2023 influenza virus vacc ine, unspecified formulation Flavio Miles DO Work Phone: [facility] Work Phone: 01-04-2022 influenza, high dose seasonal, preservative-free Huan Mcdaniel Work Phone: [facility] Work Phone: Comment on above: Series: 01-04-2022 Influenza, High-dose Seasonal, Quadrivalent, Preservative Free Huan Mcdaniel MD Work Phone: [facility] Work Phone: 01-04-2022 Pfizer COVID-19 Vac Bivalent 30 MCG/0.3ML Intramuscular Suspension Huan Banerjeeyder Work Phone: [facility] Work Phone: 01-04-2022 Pfizer-BioNTech COVI D-19 Vacc 30 MCG/0.3ML Intramuscular Suspension Huan Banerjeeyder Work Phone: [facility] Work Phone: Comment on above: Series: 01-04-2022 influenza virus vacc ine, unspecified formulation Huan Mcdaniel MD Work Phone: [facility] Work Phone: 02-10-2021 Pfizer-BioNTech COVI D-19 Vacc 30 MCG/0.3ML Intramuscular Suspension Huan Mcdaniel Work Phone: [facility] Work Phone: 01-20-2021 Fluzone High-Dose Quadrivalent 0.7 ML Intramuscular Suspension Prefilled Syringe Huan Mcdaniel Work Phone: [facility] Work Phone: 06-11-2020 Rosa COVID-19 Vac cine 0.5 ML Intramuscular Suspension Huan Mcdaniel Work Phone: [facility] Comment on above: Series: 01-30-2020 Fluzone High-Dose Quadrivalent 0.7 ML Intramuscular Suspension Prefilled Syringe Huan Mcdaniel [facility] Work Phone: Comment on above: Series: 01-30-2020 influenza, seasonal, injectable Huan Mcdaniel [facility] Work Phone: 01-10-2019 influenza, high dose seasonal, preservative-free Huan Mcdaniel [facility] Comment on above: Series: 12-28-2017 influenza virus vacc ine, unspecified formulation; Translations: [influenza virus vaccine, unspecified formulation] Huan Mcdaniel [facility] Work Phone: Comment on above: Series: 12-28-2017 influenza, high dose seasonal, preservative-free Huan Mcdaniel MD Work Phone: [facility] Work Phone: 01-15-2017 influenza, high dose seasonal, preservative-free Huan Mcdaniel Work Phone: [facility] Work Phone: 05-23-2016 pneumococcal conjuga te vaccine, 13 valent Huan Mcdaniel [facility] Comment on above: Series: 02-22-2016 influenza virus vacc ine, unspecified formulation Huan Mcdaniel Work Phone: [facility] Work Phone: 01-29-2016 influenza, high dose seasonal, preservative-free Huan Mcdaniel Work Phone: [facility] Work Phone: 01-07-2014 pneumococcal polysaccharide vaccine, 23 valent Huan Mcdaniel [facility] Work Phone: Comment on above: Series: 01-07-2014 zoster vaccine, live Huan Mcdaniel [facility] Work Phone: Comment on above: Series: 02-25-2009 novel influenza-H1N1 -09, preservative-free, injectable Huan Mcdaniel Work Phone: [facility] Work Phone: 02-15-2007 influenza virus vacc ine, whole virus Huan Mcdaniel Work Phone: [facility] Work Phone: Payers Date Payer Category Payer Medicare [id number] 2023 Self-pay 2023 Medicare (Managed Care) [id number]. [id number] 2023 Unknown 2023 Unknown [id number] 2021 Medicare ANTHEM MEDICARE ANTH MEDICARE ADVANTAGE [id number] 2021-Present [address] [place] [address] [id number] 2021 Unknown [id number] 1947 Unknown [id number] 1947 Unknown [id number] 1947 Unknown [id number] 1947 Unknown [id number] 1947 Unknown [id number] 1945 Unknown [id number] 2.16.840.1.938997.3.579.2 .1244 1945 Unknown [id number] 2.16.840.1.949175.3.579.2 .1244 1945 Unknown [id number] 2.16.840.1.457394.3.579.2 .1244 1945 Unknown [id number] 2.16.840.1.850140.3.579.2 .1244 1945 Unknown [id number] 2.16.840.1.173487.3.579.2 .1244 1945 Unknown [id number] 2.16.840.1.019352.3.579.2 .1243 1945 Unknown [id number] 2.16.840.1.661026.3.579.2 .1243 1945 Unknown [id number] 2.16.840.1.581969.3.579.2 .1243 1945 Unknown [id number] 2.16.840.1.253087.3.579.2 .1244 Unknown [id number] 2.16.840.1.422410.3.579.2 .462 Unknown [id number] 2.16.840.1.361277.3.579.2 .462 Unknown [id number] 2.16.840.1.129798.3.579.2 .462 Unknown [id number] 2.16.840.1.418792.3.579.2 .462 Unknown [id number] 2.16840.1.048153.3.579.2 .462 Unknown [id number] 2.840.1.518475.3.579.2 .462 Unknown [id number] 2.840.1.916032.3.579.2 .462 Unknown [id number] 2.840.1.216449.3.579.2 .462 Unknown [id number] 2.840.1.316013.3.579.2 .462 Unknown [id number] 2.840.1.022045.3.579.2 .462 Unknown [id number] 2.840.1.662041.3.579.2 .462 Unknown [id number] 2.840.1.834322.3.579.2 .462 Unknown [id number] 2.840.1.490304.3.579.2 .462 Unknown [id number] 2.840.1.308696.3.579.2 .462 Unknown [id number] 2.16840.1.810073.3.579.2 .462 Unknown [id number] 2.16.840.1.714906.3.579.2 .462 Unknown [id number] 2.16840.1.581924.3.579.2 .462 Unknown [id number] 2.840.1.514596.3.579.2 .462 Unknown [id number] 2.16.840.1.228312.3.579.2 .462 Unknown [id number] 2.16.840.1.612116.3.579.2 .462 Unknown [id number] 2.16.840.1.628316.3.579.2 .462 Unknown [id number] 2.16.840.1.508824.3.579.2 .462 Unknown [id number] 2.16.840.1.285072.3.579.2 .462 Unknown [id number] 2.16.840.1.727062.3.579.2 .462 Unknown [id number] 2.16840.1.181428.3.579.2 .462 Unknown [id number] 2.16.840.1.694546.3.579.2 .462 Unknown [id number] 2.840.1.128081.3.579.2 .462 Unknown [id number] 2.840.1.499086.3.579.2 .462 Unknown [id number] 2.16840.1.213171.3.579.2 .462 Unknown [id number] 2.16.840.1.546583.3.579.2 .462 Unknown [id number] 2.16840.1.536855.3.579.2 .462 Unknown [id number] 2.16840.1.853995.3.579.2 .462 Unknown [id number] 2.16840.1.344692.3.579.2 .462 Unknown [id number] 2.16.840.1.250642.3.579.2 .462 Unknown [id number] 2.16.840.1.929156.3.579.2 .462 Unknown [id number] 2.16.840.1.081689.3.579.2 .462 Unknown [id number] 2.16840.1.226715.3.579.2 .462 Social History Date Type Detail Facility - - [facility] Work Phone: Start: 10-13-2022 End: 11-16-2023 Never a smoker Never a smoker [facility] Work Phone: Start: 08-31-2022 End: 10-21-2024 Tobacco smoking status NHIS Never smoked tobacco [facility] Work Phone: Start: 08-31-2022 Tobacco use and exposure Smokeless tobacco non-user [facility] Work Phone: Start: 10-13-2022 End: 12-04-2023 Alcohol intake Lifetime non-drinker (finding) [facility] Work Phone: Start: 10-13-2022 End: 11-16-2023 Tobacco use panel [facility] Work Phone: Start: 1945 [facility] Start: 10-03-2022 End: 02-28-2024 Exposure to SARS-CoV-2 (event) Not sure [facility] Start: 04-10-2023 End: 08-02-2023 Exposure to SARS-CoV-2 (event) Unable to assess [facility] How often to you hav e a drink containing alcohol? Never [facility] How many standard drinks containing alcohol do you have on a typical day? Patient does not drink [facility] Work Phone: In the past 12 months, was there a time when you were not able to pay the mortgage or rent on time? No [facility] Start: 06-13-2024 End: 07-15-2024 Sex Female (finding) [facility] Start: 1945 Sex Assigned At Female [facility] Tobacco smoking status NHIS Tobacco smoking consumption unknown [facility] NEGATED: Highlighted row Not [facility] Medical Equipment Procedure Code Equipment Code Equipment [...] Goals Date Patient Goal Desired Activity /State Personal health goal Functional Status Date Assessment Result Facility NEGATED: Highlighted row Functional performance Functional status health issues are not documented Disease [facility] Work Phone: Mental Status Date Assessment Result Facility 10-28-2024 Cognitive function Level Of Cons ciousness Sedated [facility] Work Phone: 10-28-2024 Cognitive function Voice/Name [facility] Work Phone: 07-01-2024 Cognitive function Voice/Name [facility] Work Phone: 03-28-2024 Cognitive function Level Of Cons ciousness Awake;Alert;Appropriate ;Follows Commands [facility] Work Phone: NEGATED: Highlighted row Cognitive function [Interpretation] Cognitive status health issues are not documented Disease [facility] Work Phone: Clinical Notes 02-14-2019 to 10-28-2024 Telephone Encounter - Gamaliel Tilley MA - 09/19/2024 3:56 PM EDTTelephone Encounter - Gamaliel Tilley MA - 09/19/2024 3:56 PM EDTTelephone Encounter - Pearl Dutta - 09/17/2024 3:47 PM EDT Note Date & Type Note Facility 10-28-2024 Consult note [facility] 10-28-2024 Consult note [facility] 10-28-2024 Procedure note [facility] 10-28-2024 Procedure note [facility] 10-28-2024 History and physi sofi note [facility] 10-28-2024 Note [facility] 10-28-2024 Consult note [facility] 09-19-2024 Telephone encount er Note Spoke with nurse at [facility] [phone], [address] They're unable to arrange transportation for 09/24/24 office visit and reschedule to 11/12/24 10:30am. I faxed appt reminder with our address on it to [phone]. [facility] 09-19-2024 Miscellaneous Notes Formattin g of this note might be different from the original. Spoke with nurse at [facility] [phone], [address]. They're unable to arrange transportation for 09/24/24 office visit and reschedule to 11/12/24 10:30am. I faxed appt reminder with our address on it to [phone]. Images from the original note were not included. TAVR clinic referral received from Dr. Milo Mendoza. Chart reviewed, scanned records and imaging appreciated. 78 yo female with PMHx that includes HFrEF, a fib (previously on xarelto), DM, renal disease, anemia, anxiety/depression, OM, OA, GIB, PUD, COPD. Resides at [facility] since 6 months ago. Wheelchair bound, does stand for brief transfers with assist. Notes she gave up will to live about 5 years ago due to frustrations with family situations, and just had gradual debilitation. Retired [employer]. Of note rivaraxoban was stopped prior due to anemia? Upper endoscopy 06/2024 showed non bleedin gastric ulcer, and most recent Hgb 11.4. Currently denies SOB, chest pain, palpitations. Occ lh/dizziness, no near syncope or syncope. Occ BLE edema, does not recall if she is on diuretics. No change in energy levels, always kind of tired. ECHO report and images available. Offered TAVR clinic this SunSEPTEMBER 24 at 1030 - 1000 arrival - [facility], [facility], 3rd floor She would like to take appt and is going to speak with her charge nurse to inquire on transportation arrangements. ECHO 08/13/24 Mean/peak 40? 1+ AI EF 40-45% Laurent Garza APRN.CNP documented in this encounter [facility] 09-19-2024 Telephone encount er Note Images from the original note were not included. TAVR clinic referral received from Dr. Milo Mendoza. Chart reviewed, scanned records and imaging appreciated. 78 yo female with PMHx that includes HFrEF, a fib (previously on xarelto), DM, renal disease, anemia, anxiety/depression, OM, OA, GIB, PUD, COPD. Resides at [facility] since 6 months ago. Wheelchair bound, does stand for brief transfers with assist. Notes she gave up will to live about 5 years ago due to frustrations with family situations, and just had gradual debilitation. Retired [employer]. Of note rivaraxoban was stopped prior due to anemia? Upper endoscopy 06/2024 showed non bleedin gastric ulcer, and most recent Hgb 11.4. Currently denies SOB, chest pain, palpitations. Occ lh/dizziness, no near syncope or syncope. Occ BLE edema, does not recall if she is on diuretics. No change in energy levels, always kind of tired. ECHO report and images available. Offered TAVR clinic this SunSEPTEMBER 24 at 1030 - 1000 arrival - [facility], 3rd floor She would like to take appt and is going to speak with her charge nurse to inquire on transportation arrangements. ECHO 08/13/24 Mean/peak 40? 1+ AI EF 40-45% Laurent Garza APRN.CNP [facility] 09-17-2024 Telephone encount er Note Referral received and scanned to chart. Fax request was sent to [facility] requesting images and reports. A message was also sent to Laurent Garza CNP in regards to the referral. Non-rheumatic aortic valve stenosis (possible TAVR candidate). [facility] 09-17-2024 Miscellaneous Notes Formattin g of this note might be different from the original. Referral received and scanned to chart. Fax request was sent to [facility] requesting images and reports. A message was also sent to Laurent Garza CNP in regards to the referral. Non-rheumatic aortic valve stenosis (possible TAVR candidate). documented in this encounter [facility] 07-01-2024 History and physi sofi note Note Date/Time July 01, 2024 12:39pm [facility] Medical Records Department [address] [place] [address] History & Physical Exam 07/01/24 1237 MR#: [id number] Acct: [id number] Name: DARYN SHAH BLANE Rep #:[id number] : 1945 78 From: Jacinto Munoz DO PCP: April Mullen MD Status:[facility] Location: [place] [address] HPI - General General Date of Admission: [...] she also reports prior to admission to [facility] she had 30-40lb of peripheral edema - [...] - CKD (GFR 52) - Easy bruising [facility] Medical History (Updated 07/01/24 @ 12:[address] Casey Friend, DO) Lives in shelter Wears glasses Wears partial dentures Marijuana use [...] 4. Colonoscopy and EGD - scheduled at [facility] with Dr. Munoz (Golyte bowel prep) 5. Follow-up in the office 1-2 weeks post procedure 07/01/24 3817 <Electronically signed by Jacinto Munoz DO> Cosigner Signature (if applicable): CC: April Mullen MD; Jacinto Munoz DO~ Signed [facility] Work Phone: 1(124) 177-609403-25-2025 Consult note Author Manuel Campuzano [facility] Note Date/Time July 01, 2024 12: 33pm [facility] Medical Records Department [address] [place] [address] Pre-Anesthesia Evaluation 07/01/24 1219 MR#: [id number] Acct: [id number] Name: DARYN SHAH Rep #:[id number] : 1945 78 From: Manuel Campuzano MD PCP: April Mullen MD Status:REG SDC Y Race: C Location: [place] [address] ASA Classification* ASA Classification ASA Classification: 3 [...] Procedure(s): CSCOPE/EGD Anesthesia History Anesthesia History - gut dropper: Anesthesia History - gut dropper Hx Hospitalization Yes: 12/2023 PNEUMONIA AND 06/30/24 [...] sips of water?: No PONV PONV - gut dropper: PONV - gut dropper Female Yes 06/30/24 11:18 HX of Motion [...] 07/01/24 11:58 Respiratory Assessment Respiratory Assessment - gut dropper: Respiratory Tract Infection Hx - gut dropper Hx Respiratory Tract Infection No 06/30/24 11:18 STOP Sleep Apnea STOP Sleep Apnea - gut dropper: STOP Sleep Apnea - gut dropper Hx Hypertension Yes 06/30/24 11:18 Hx Sleep [...] Tobacco Use History Tobacco Use History - gut dropper: Tobacco Use History - gut dropper Tobacco Use Smoking Status Never smoker 06/30/24 11:18 Hx Tobacco Use No 06/30/24 11:18 Years Smoking Packs Smoked per Day Smoking Cessation Date was within the last 15 years Hx Smoking Cessation Date Hx Smoking Cessation Counseling Hematologic Medial History Hematologic Hx - gut dropper: Hematologic Medical Hx - cake tester Hx of Blood Transfusion No 06/30/24 11:18 [...] confused, unrespo /Reproduction History /Reproductive History - gut dropper: /Reproductive Hx- gut dropper Hx Now No 06/30/24 11:18 Gestational Age (in weeks): EDC: Hx Hx Para Hx Section SAB No 06/30/24 11:18 [facility] Medical History Lives in shelter Wears glasses Wears partial dentures Marijuana use [...] no additional complaints, except as documented. 07/01/24 1366 <Electronically signed by Manuel farrar MD> Date _ Manuel Campuzano MD Cosigner Signature: Date CC: ~ Signed [facility] Work Phone: 1(301) 724-245203-25-2025 Procedure note [facility] Medical Records Department [address] [place] [address] Colonoscopy Report MR#: [id number] Acct: [id number] Name: DARYN SHAH BLANE Rep #:[id number] : 1945 78 From: Jacinto Munoz DO PCP: April Mullen MD Status:[facility] Patient Name: Daryn Shah Procedure Date: 07/01/2024 [...] one hemostatic clip was successfully placed. 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 There was no bleeding at the end of the procedure. Impression: - Diverticulosis in the recto-sigmoid colon, in the sigmoid colon and in the descending colon. - One 20 mm polyp in the cecum, removed with a hot snare. Resected and retrieved. Clip was placed. Clip director of curriculum and instruction: [employer]. Recommendation: - Repeat colonoscopy in 3 years for surveillance. - Continue present medications. Procedure Code(s): --- Professional --- 86034, Colonoscopy, flexible; with removal of tumor(s), polyp(s), or other lesion(s) by snare technique CPT copyright 2021 [employer]. All rights reserved. The codes documented in this report are preliminary and upon hooking machine operator review may be revised to meet current compliance requirements. Jacinto Munoz DO 07/01/2024 2:07:31 PM This report has been signed electronically. Number of Addenda: 0 Note Initiated On: 07/01/2024 1:21 PM 07/01/24 1407 Date _ Jacinto Munoz DO Cosigner Signature: Date (if indicated) CC: April Mullen MD; Jacinto Munoz DO ~ Date Dictated: 07/01/24 1321 Date Transcribed: Director Of Vendor Management: RF Signed [facility]03-25-2025 Procedure note [facility] Medical Records Department [address] [place] [address] Operative Report - CC Letter MR#: [id number] Acct: [id number] Name: DARYN SHAH BLANE Rep #:[id number] : 1945 78 From: Jacinto Munoz DO PCP: April Mullen MD Status:REG [facility] 07/01/2024 April Mullen Md Re : Colonoscopy [...] Resected and retrieved. Clip was placed. 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 Recommendations : - Repeat colonoscopy in 3 years for surveillance. - Continue present medications. My findings are described in the full procedure note, which is enclosed. If I can be of further assistance, please feel free to contact me at . Sincerely, Jacinto Munoz DO 07/01/2024 2:07:31 PM This report has been signed electronically. 07/01/24 1407 Date _ Jacinto Munoz DO Cosigner Signature: Date (if indicated) CC: April Mullen MD; Jacinto Munoz DO ~ Date Dictated: 07/01/24 1321 Date Transcribed: Director Of Vendor Management: ADAMA Signed [facility]03-25-2025 Consult note [facility] Medical Records Department [address] [place] [address] Anesthesia Postop Eval I 07/01/24 1406 MR#: [id number] Acct: [id number] Name: DARYN SHAH BLANE Rep #:[id number] 1 : 1945 78 From: Jones Greer PCP: April Mullen MD Status:REG SDC Y Race: C Location: [place] [address] Anesthesia: Postop Eval I Current Vital Signs [...] document: Postop Eval 1 completed: Yes 07/01/24 1407 > Date _ Jones Acevedo Signature: Date CC: ~ Signed [facility]03-25-2025 Procedure note [facility] Medical Records Department [address] [place] [address] EGD Report MR#: [id number] Acct: [id number] Name: DARYN SHAH Rep #:[id number] : 1945 78 From: Jacinto Munoz DO PCP: April Mullen MD Status:REG [facility] Patient Name: Daryn Shah Procedure Date: 07/01/2024 [...] check healing. Procedure Code(s): --- Professional --- 35959, Small intestinal endoscopy, enteroscopy beyond second portion of duodenum, not including ileum; with biopsy, single or multiple CPT copyright 2021 [employer]. All rights reserved. The codes documented in this report are preliminary and upon hooking machine operator review may be revised to meet current compliance requirements. Jacinto Munoz DO 07/01/2024 2:05:15 PM This report has been signed electronically. Number of Addenda: 0 Note Initiated On: 07/01/2024 1:01 PM 07/01/241404 Date _ Jacinto Munoz DO Cosigner Signature: Date (if indicated) CC: April Mullen MD; Jacinto Munoz DO ~ Date Dictated: 07/01/24 1301 Date Transcribed: Director Of Vendor Management: RF Signed [facility]03-25-2025 Procedure note [facility] Medical Records Department [address] [place] [address] Operative Report - CC Letter MR#: [id number] Acct: [id number] Name: DARYN SHAH BLANE Rep #:[id number] : 1945 78 From: Jacinto Munoz DO PCP: April Mullen MD Status:REG [facility] 07/01/2024 April Mullen Md Re : Upper [...] electronically. 07/01/241404 Date _ Jacinto Friend DO Curtis Signature: Date (if indicated) CC: April Mullen MD; Jacinto Friend, DO ~ Date Dictated: 07/01/24 1301 Date Transcribed: Director Of Vendor Management: ADAMA [place] [facility]03-25-2025 Evaluation note* Diagnosis Onset Date Resolution Status Admit Date Anemia acute July 01 11:19am A-fib chronic July 23 10:52am Chronic HFrEF (heart failure with reduced ejection fraction) chronic July 23, 2024 10:52am Diabetes chronic July 23 10:52am Hypertension chronic July 23, 2024 10:52am Anemia acute July 31 8:52am Gastric ulcer acute July 31, 2024 8:52am A-fib chronic October 09, 2024 2:38pm Chronic HFrEF (heart failure with reduced ejection fraction) chronic October 09, 2024 2:38pm Hypertension chronic October 09 2:38pm [facility] Work Phone: 1(947) [phone] Evaluation note* Diagnosis Onset Date Resolution Status Admit Date Anemia acute July 01 11:19am A-fib chronic July 23 10:52am Chronic HFrEF (heart failure with reduced ejection fraction) chronic July 23, 2024 10:52am Diabetes chronic July 23 10:52am Hypertension chronic July 23, 2024 10:52am Anemia acute July 31 8:52am Gastric ulcer acute July 31, 2024 8:52am Aortic stenosis acute October 09, 2024 2:38pm A-fib chronic October 09, 2024 2:38pm Chronic HFrEF (heart failure with reduced ejection fraction) chronic October 09, 2024 2:38pm Hyperlipidemia chronic October 09, 2024 2:38pm Hypertension chronic October 09 2:38pm Anemia acute October 28 10:27am Gastric ulcer acute October 28, 2024 10:27am [facility] Work Phone: 1(757) 350-536803-25-2025 History and physical note [facility] Medical Records Department [address] [place] [address] History & Physical Exam 07/01/24 1237 MR#: [id number] Acct: [id number] Name: DARYN SHAH Rep #:[id number] 5 : 1945 78 From: Jacinto Friend DO PCP: April Mullen MD Status:REG [facility] Location: [place] [address] HPI - General General Date of Admission: [...] she also reports prior to admission to [facility] she had 30-40lb of peripheral edema - [...] - CKD (GFR 52) - Easy bruising [facility] Medical History (Updated 07/01/24 @ 12:[address] Casey Friend, DO) Lives in shelter Wears glasses Wears partial dentures Marijuana use [...] 4. Colonoscopy and EGD - scheduled at [facility] with Dr. Munoz (Golyte bowel prep) 5. Follow-up in the office 1-2 weeks post procedure 07/01/24 1239 Cosigner Signature (if applicable): CC: April Mullen MD; Jacinto Munoz DO~ Signed [facility]03-25-2025 [facility]03-25-2025 Consult note [facility] Medical Records Department [address] [place] [address] Pre-Anesthesia Evaluation 07/01/24 1219 MR#: [id number] Acct: [id number] Name: DARYN SHAH Rep #:[id number] 0 : 1945 78 From: Manuel Campuzano MD PCP: April Mullen MD Status:REG SD Y Race: C Location: [place] [address] ASA Classification* ASA Classification ASA Classification: 3 [...] Procedure(s): CSCOPE/EGD Anesthesia History Anesthesia History - gut dropper: Anesthesia History - gut dropper Hx Hospitalization Yes: 12/2023 PNEUMONIA AND 06/30/24 [...] sips of water?: No PONV PONV - gut dropper: PONV - gut dropper Female Yes 06/30/24 11:18 HX of Motion [...] 07/01/24 11:58 Respiratory Assessment Respiratory Assessment - gut dropper: Respiratory Tract Infection Hx - gut dropper Hx Respiratory Tract Infection No 06/30/24 11:18 STOP Sleep Apnea STOP Sleep Apnea - gut dropper: STOP Sleep Apnea - gut dropper Hx Hypertension Yes 06/30/24 11:18 Hx Sleep [...] Tobacco Use History Tobacco Use History - gut dropper: Tobacco Use History - gut dropper Tobacco Use Smoking Status Never smoker 06/30/24 11:18 Hx Tobacco Use No 06/30/24 11:18 Years Smoking Packs Smoked per Day Smoking Cessation Date was within the last 15 years Hx Smoking Cessation Date Hx Smoking Cessation Counseling Hematologic Medial History Hematologic Hx - gut dropper: Hematologic Medical Hx - cake 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 07/01/24 1233 leni REHMAN> Date _ Maneul Campuzano MD Cosigner Signature: Date CC: ~ Signed [facility]01-20-2025 Evaluation note* Diagnosis Onset Date Resolution Status Admit Date Anemia noneactive April 28, 2024 10:28am [facility] Work Phone: 1(417) 295-838201-20-2025 Evaluation note* Diagnosis Onset Date Resolution Status Admit Date Anemia noneactive April 28, 2024 10:28am Anemia acute July 01 11:19am [facility] Work Phone: 1(796) 659-161301-20-2025 Evaluation note* Diagnosis Onset Date Resolution Status Admit Date Anemia noneactive April 28, 2024 10:28am Anemia acute July 01 11:19am A-fib chronic July 23 10:52am Chronic HFrEF (heart failure with reduced ejection fraction) chronic July 23, 2024 10:52am Diabetes chronic July 23 10:52am Hypertension chronic July 23, 2024 10:52am Anemia acute July 31 8:52am Gastric ulcer acute July 31, 2024 8:52am [facility] Work Phone: 1(452) 165-801011-21-2024 History of Present illness Narrative* Braulio Oneil MD PhD - 02/28/2024 10:00 AM EST Images from the original note were not included. [facility] Department of Neurological Surgery Post Operative Patient [...] surgery. She does physical therapy at her shelter. I am concerned that she is very [...] Sincerely, Braulio Oneil MD PhD Attending Neurosurgeon [facility] Direct Support Staff Member of Neurological Surgery [employer] [place] [address] [place] [address] [place] [address] Office: [facility] Work Phone: 1(682) 523-536210-08-2024 History of Present illness Narrative* Megan Osorio, - 01/15/2024 10:20 AM EDT Infectious Diseases [...] that time she had been admitted to [facility] for AMS and is now returned to her facility. They are sending discharge paperwork and recent vanc trough, CBC, CMP. Reports having COVID and PNA at OSH. Reports she was continuing to get her IV abx at [facility]. Was in quarantine for a while at the rehab. Now back in her old room and feels at home. Was told she had a weak heart, and is looking into getting a deputy sheriff generalist for her Afib. Biggest regret is feels [...] ceftriaxone today. No back pain while at [facility]. Also spoke popeye/ Yony, wound nurse, confirmed incision is healed and intact. Records faxed from her recent hospitalization at [facility], admitted from 12/30 to ~01/06 for AMS, [...] up in ID clinic as needed Megan Osorio, DO documented in this [facility] Work Phone: 1(997) 529-190710-01-2024 [facility]09-18-2024 History of Present illness Narrative* Megan [...] plans are to stay at the facility fpc as she enjoys it there and feels [...] results Megan Osorio DO documented in this [facility] Work Phone: 1(484) 774-905108-27-2024 History of Present illness Narrative* Eliza Alonso PA-C - 12/04/2023 10:00 AM EDT Images from the original note were not included. [facility] Department of Neurological Surgery Post Operative Patient [...] surgical incision with good fibrotic tissue spanning. [place] removed at visit today with patient tolerating [...] directly. Sincerely, JANAK Tian PA-C Associate Physician Distillation Operator Helper, Neurosurgery Clinical Direct Support Staff Member [facility] [employer] [place] [address] [place] [address] documented in this [facility] Work Phone: 1(818) 725-618408-13-2024 Nurse Note* Ramos Phillip RN - 11/20/2023 1:59 PM EDT Discharge Note: Pt A&O x 4 at time of discharge, anxious. Report called to Robbie Reyes at 1331. Pt to bedischarged with PICC [...] reach. Wolf Arellano LPN [facility]: 1(768) 635-486808-13-2024 History of Present illness Narrative* Ansley Anthony - 11/20/2023 1:37 PM EDT Spiritual Care Visit Clinical Encounter Type Visited With: Patient Routine Visit: Follow-up Continue Visiting: Yes Surgical Visit: Post-op Referral From: Nurse, Family, Patient Referral To: Respiratory Care Specialist Jain Encounters Jain Needs: Prayer Values/Beliefs Cultural Requests During Hospitalization: [...] (Level of Unmet Needs) Existential Struggle: Some Spiritual/Jain Struggle: Some Legacy: Some Relationships: Some Fear [...] calming presence Methods: Offer emotional support, Offer spiritual/gnosticism support, Offer support Interventions: Active listening, Assist with identifying strengths, Discuss concerns, Facilitate life review, Prayer for healing Follow up spiritual care visit with patient this morning. Patient engaged director of regional sales in life review and story telling. Pt has some grief and loss that she is working through. Patient shared her feelings and concerns and hopes. Respiratory Care Specialist listened and provided support, companionship, prayer and listening. Patient may be discharged today. Respiratory Care Specialist will continue to see her if that [...] of toxicity. Linda Grace PharmD * Sophie Ramirez, MAYCO-GLOVE BOARDER - 11/20/2023 9:42 AM EDT Subjective Patient endorses feelings of depression. She states she is depressed but this is nothing new. Shestates it wouldn't be the worst thing if I , but she denies suicidal ideation and is thinkingabout plans to reconnect with her religion and is interested in looking a senior centers for socialization. She agrees with the plan to increase Effexor dose. She is hopeful her strength will improve wh ile at rehab. She expresses concern for her son who is currently hospitalized. Respiratory Care Specialist is seeing patient today as well. Patient [...] Giovanna Coles MD 2 Units at 11/18/23 211 ipratropium-albuteroL (Duo-Neb) 0.5-2.5 mg/3 mL nebulizer solution 3 mL 3 mL nebulization q6h PRN Giovanna Coles MD lidocaine (Xylocaine) 10 mg/mL (1 %) injection 5 mL 5 mL infiltration Once Danny Deng MD nystatin (Mycostatin) 100,000 unit/gram powder 1 Application 1 Application Topical BID Le Null MD 1 Application at 11/19/23 215 oxyCODONE (Roxicodone) immediate release tablet 10 mg 10 mg oral q4h PRN Giovanna Coles MD 10 mg at 11/19/232123 oxyCODONE (Roxicodone) immediate release tablet 5 mg 5 mg oral q4h PRN Giovanna Coles MD 5 mg at 11/20/23 0932 polyethylene glycol (Glycolax, Miralax) packet 34 g 34 g oral BID Giovanna Coles MD 34 g at 929 [Held by provider] rivaroxaban (Xarelto) tablet 20 mg 20 mg oral Daily Eulalia Champagne MD rosuvastatin (Crestor) tablet 10 mg 10 mg oral Nightly Giovanna Coles MD 10 mg at 11/19/232128 sennosides (Senokot) tablet 17.2 mg 2 tablet oral BID Giovanna Coles MD 17.2 mg at 11/20/23 0932 vancomycin (Vancocin) in dextrose 5 % water (D5W) 500 mL IV 1,500 mg 1,500 mg intravenous q24h Eulalia Champagne MD Stopped at 11/19/23 2252 vancomycin (Vancocin) pharmacy to dose - pharmacy [...] not impaired. Judgment: Judgment normal. Comments: GDS: 14/15 Confusion Assessment Method(CAM) for diagnosis of delirium: [...] Results Component Value Date TSH 0.45 11/19/2023 [id number] 374 11/19/2023 VITD25 51 11/19/2023 HGBA1C 7.2 [...] chest 1 view Narrative: Interpreted By: Pastor Nieto and Niraj Moreno STUDY: XR CHEST 1 VIEW; 11/16/2023 5:05 pm INDICATION: Signs/Symptoms:PICC PLACEMENT. COMPARISON: 11/13/2023 chest radiograph ACCESSION NUMBER(S): [id number] ORDERING CLINICIAN: RU ORTEGA FINDINGS: AP radiograph [...] and resident interpretation as stated by Dr. Tiffaine Healy MD. I agree with the findings as stated. This study was interpreted at [facility], [place], [place]. MACRO: None Signed by: Pastor Barrientos 11/17/2023 6:46 AM Dictation workstation: [id number] DATA: EKG: QTC Encounter Date: 11/09/23 ECG 12 Lead Result Value Ventricular Rate 73 Atrial Rate 73 DE Interval 196 QRS Duration 106 QT Interval 384 QTC Calculation(Bazett) 423 P [place] -24 R [place] -46 T [place] -41 QRS Count 12 Q Onset 205 [...] today - Recommend psychology services while at SNF - Continue Effexor 112.5mg daily - Support [...] 0 Mobility: Patient is wheelchair bound at [facility] Geriatric medicine will continue to follow the patient. Thank you for allowing geriatric medicine to be involved in the care of your patient. Geriatric medicine consultation team is available during work hours Sunday through Sunday. For any emergency issues requiring immediate assistance over the weekend, please page Geriatrics pager [phone] MACARENA Richardson * Elias Pappas - 11/20/2023 [...] Value Ventricular Rate 73 Atrial Rate 73 DE Interval 196 QRS Duration 106 QT Interval 384 QTC Calculation(Bazett) 423 P [place] -24 R [place] -46 T [place] -41 QRS Count 12 Q Onset 205 [...] as stated. This study was interpreted at [place], [place]. MACRO: None Signed by: Pastor Barrientos 11/17/2023 6:46 AM Dictation workstation: [id number] CT guided percutaneous biopsy bone deep Result Date: 11/14/[address]-guided biopsy of the T7 vertebra. Specimens were sent to pathology/laboratory per requesting team. I was present for the entirety of the procedure as detailed above. I personally reviewed the images/study and I agree with the findings as stated by Justin Gatica MD. This study was interpreted at [place], [place]. MACRO: None Signed by: Caron Donaldson 11/14/2023 8:11 AM Dictation workstation: [id number] XR chest 1 view Result Date: 11/14/2023 1. No acute abnormality of the chest. 2. Mild retrocardiac and left basilar atelectasis. I personally reviewed the image(s)/study and resident interpretation as stated by Dr. Tiffanie Healy MD. I agree with the findings as stated. This study was interpreted at [place], [place]. MACRO: None Signed by: Bunny Asher 11/14/2023 7:48 AM Dictation workstation: [id number] MR lumbar spine w and wo IV [...] as stated. This study was interpreted at [facility], [place], [place]. MACRO: None Signed by: Lynda Bal 11/06/2023 1:29 PM Dictation workstation: [id number] MR thoracic spine w and wo IV [...] Lynda Bal 11/06/2023 1:24 PM Dictation workstation: [id number] MR cervical spine w and wo IV contrast Result Date: 11/06/2023 The examination is moderately degraded by patient motion artifact. Within this limitation, no evidence of focal osseous metastatic disease. No definite abnormal signal or enhancement within the cervical cord. Multilevel degenerative changes as detailed above. MACRO: None Signed by: Lynda Bal 11/06/2023 1:10 PM Dictation workstation: [id number] CT chest abdomen pelvis wo IV contrast [...] 8 of admission as a transfer from [facility] to [facility] for evaluation of back pain likely from [...] - inc effexor to 112.5, music therapy, director of regional sales services -Working on dispo -Drains removed by [...] is some anxiety related to son's (primary kieselguhr regenerator operator) health condition and when she can return [...] Information Primary Emergency Contact: BEVERLY SHAH Address: [address] [place] [phone] [facility] Relation: Son Preferred language: [employer] Estimator needed? No Secondary Emergency Contact: Rissa SHAH Address: [address] [place] [phone] [facility] Relation: Son Preferred language: [employer] Estimator needed? No Eliasroman Pappas, MS4 11/20/2023 Associated attestation - Sai Marie MD [...] discussed during interdisciplinary rounds. Team members present: DANILO REHMAN Plan per Medical/Surgical team: Per medical team pt is medically ready for discharge, she has a PICC line in place for IV abx. Facility confirmed they can accommodate IV abx Vanc (dosed by pharmacy)/Ceftriaxone every 8 hours thru 12/25 per last ID note. Payer: Dev[employer] Status: Inpatient Discharge disposition: [facility] Potential Barriers: none ADOD: 11/19 Secure chat sent to direct submit team to initiate precert. Per [facility] we have to complete pre-cert on our end as we our devoted contract is through [facility]. Please send therapy notes so we are able to start. Precert team confirmed precert has already been started and they will send over [facility], facility updated. [place]/discharge orders requested from the team for 7000 form. reconciliation coordinator will continue to follow for discharge planning needs. Kay Putnam RN Transitional Support Assistant/TCC [id number] * Alonzo Antony OT - 11/19/2023 2:31 [...] at the side of the bed. Outcome Measures:[facility] Daily Activity Putting on and taking off [...] 1: cues for log roll Outcome Measures: [facility] Basic Mobility Turning from your back to [...] 1500 every 24 hours to begin at 2000. This dosing regimen is predicted by [employer] [...] signs/symptoms of toxicity. Raul Chaney PharmD * Carrington De Los Santos MD [...] 11/12 s/p IR guided T spine biopsy 11/13 s/p T5-9 lami for epidural abscess Plan: Naff primary Continue drain and prevena - please record output of drain DNR/DNI Please encourage patient to be out of bed, work with PTOT Antibiotic management per ID and primary team Neurosurgery will continue to follow Carrington De Los Santos MD * Elias Pappas - 11/19/2023 6:45 [...] Value Ventricular Rate 73 Atrial Rate 73 DE Interval 196 QRS Duration 106 QT Interval 384 QTC Calculation(Bazett) 423 P [place] -24 R [place] -46 T [place] -41 QRS Count 12 Q Onset 205 [...] as stated. This study was interpreted at [facility], [place], [place]. MACRO: None Signed by: Pastor Barrientos 11/17/2023 6:46 AM Dictation workstation: [id number] CT guided percutaneous biopsy bone deep Result Date: 11/14/[address]-guided biopsy of the T7 vertebra. Specimens were sent to pathology/laboratory per requesting team. I was present for the entirety of the procedure as detailed above. I personally reviewed the images/study and I agree with the findings as stated by Justin Gatica MD. This study was interpreted at [place], [place]. MACRO: None Signed by: Caron Donaldson 11/14/2023 8:11 AM Dictation workstation: [id number] XR chest 1 view Result Date: 11/14/2023 1. No acute abnormality of the chest. 2. Mild retrocardiac and left basilar atelectasis. I personally reviewed the image(s)/study and resident interpretation as stated by Dr. Tiffanie Healy MD. I agree with the findings as stated. This study was interpreted at [place], [place]. MACRO: None Signed by: Bunny Asher 11/14/2023 7:48 AM Dictation workstation: [id number] MR lumbar spine w and wo IV [...] as stated. This study was interpreted at [place], [place]. MACRO: None Signed by: Lynda Bal 11/06/2023 1:29 PM Dictation workstation: [id number] MR thoracic spine w and wo IV [...] Lynda Bal 11/06/2023 1:24 PM Dictation workstation: [id number] MR cervical spine w and wo IV contrast Result Date: 11/06/2023 The examination is moderately degraded by patient motion artifact. Within this limitation, no evidence of focal osseous metastatic disease. No definite abnormal signal or enhancement within the cervical cord. Multilevel degenerative changes as detailed above. MACRO: None Signed by: Lynda Bal 11/06/2023 1:10 PM Dictation workstation: [id number] CT chest abdomen pelvis wo IV contrast [...] 8 of admission as a transfer from [facility] to [facility] for evaluation of back pain likely from [...] is some anxiety related to son's (primary kieselguhr regenerator operator) health condition and when she can return [...] Information Primary Emergency Contact: BEVERLY SHAH Address: [address] [place] [phone] [facility] Mobile Relation: Son Preferred language: [employer] Estimator needed? No Secondary Emergency Contact: Rissa SHAH Address: [address] [place], [place] [address] [address] [facility] [place] Relation: Son Preferred language: [employer] Estimator needed? No MARNIE Umanzor 11/19/2023 Associated attestation - Sai Marie MD [...] personal situation. Awaiting placement. * Hayley Meléndez, HIM ANALYST - 11/18/2023 7:56 PM EDT Recreation Therapy [...] RN - 11/18/2023 3:31 PM EDT Transitional Support Assistant Progress Note: Pt is medically ready for discharge to SNF. Reviewed SNF referral results with pt. FOC is [facility]. SNF was notified they are FOC. Requested updated therapy notes for tomorrow. SNF will initiate precert once updated therapy notes are received. reconciliation coordinator will continue to follow for discharge planning needs. Opal LUNA, RN- Transitional Support Assistant (TCC) [phone] * Terry Lyons MD - 11/18/2023 9:05 [...] Value Ventricular Rate 73 Atrial Rate 73 DE Interval 196 QRS Duration 106 QT Interval 384 QTC Calculation(Bazett) 423 P [place] -24 R [place] -46 T [place] -41 QRS Count 12 Q Onset 205 [...] as stated. This study was interpreted at [place], [place]. MACRO: None Signed by: Pastor Barrientos 11/17/2023 6:46 AM Dictation workstation: [id number] CT guided percutaneous biopsy bone deep Result Date: 11/14/[address]-guided biopsy of the T7 vertebra. Specimens were sent to pathology/laboratory per requesting team. I was present for the entirety of the procedure as detailed above. I personally reviewed the images/study and I agree with the findings as stated by Justin Gatica MD. This study was interpreted at [place], [place]. MACRO: None Signed by: Caron Donaldson 11/14/2023 8:11 AM Dictation workstation: [id number] XR chest 1 view Result Date: 11/14/2023 1. No acute abnormality of the chest. 2. Mild retrocardiac and left basilar atelectasis. I personally reviewed the image(s)/study and resident interpretation as stated by Dr. Tiffanie Healy MD. I agree with the findings as stated. This study was interpreted at [place], [place]. MACRO: None Signed by: Bunny Asher 11/14/2023 7:48 AM Dictation workstation: [id number] MR lumbar spine w and wo IV [...] as stated. This study was interpreted at [facility], [place], [place]. MACRO: None Signed by: Lynda Bal 11/06/2023 1:29 PM Dictation workstation: [id number] MR thoracic spine w and wo IV [...] Lynda Bal 11/06/2023 1:24 PM Dictation workstation: [id number] MR cervical spine w and wo IV contrast Result Date: 11/06/2023 The examination is moderately degraded by patient motion artifact. Within this limitation, no evidence of focal osseous metastatic disease. No definite abnormal signal or enhancement within the cervical cord. Multilevel degenerative changes as detailed above. MACRO: None Signed by: Lynda Bal 11/06/2023 1:10 PM Dictation workstation: [id number] CT chest abdomen pelvis wo IV contrast [...] 8 of admission as a transfer from [facility] to [facility] for evaluation of back pain likely from [...] Primary Emergency Contact: BEVERLY SHAH Address: [address] [phone] [facility] Relation: Son Preferred language: [employer] Estimator needed? No Secondary Emergency Contact: Rissa SHAH Address: [address] [place] [phone] [facility] Mobile Relation: Son Preferred language: [employer] Estimator needed? No Thomas Hoffman MD, MSc Internal [...] 8/6 s/p IR guided T spine biopsy / [...] (Rehab/SNF/etc) Type of Post Acute Facility Services [facility] Expected Discharge Disposition SNF Does the patient [...] were you homeless or living in a usp (including now)? N Transportation Needs In the [...] Met with pt and introduced myself as child care aide and member of the Care Transitions team [...] and other house hold items delivered from [employer]. Pt denies any falls. Pt stated she feels safe at home. Pt's address, phone number, and contact information was verified. Pt denies any social or financial concerns at this time. Home care: Yes Agency: [facility] [phone] Disciplines: Nurse came 1x to check vitals. DME: cane, walker, hospital bed. manager communication: none. PCP: Huan Mcdaniel MD Last appt: Pt does a lot of virtual visits Transport to appts: Son Eva provides (they have a wheelchair accessible van). Pharm: [facility] (denies issues affording/obtaining medications) Discharge Planning: Pt s/p OR for laminectomy with Neurosurgery team, awaiting final IV abx recs however, team anticipate pt will discharge on 6 week course of IV abx with tentative stop date of 12/25. Pt stated she recently discharged AMA from [facility] (she was there x20 days) because her [...] to the following SNF's: [facility] Referrals sent to above facilities via Careport to see if they can accept. Precert will be requiredprior to discharge. reconciliation coordinator will continue to follow for discharge planning needs. Kay Putnam RN Transitional Support Assistant/TCC [id number] * Ru Ortega MD - 11/16/2023 1:19 [...] undetermined Abnormal ECG Confirmed by Fabio Bee ([id number]) on 11/15/2023 2:34:28 PM No results found for this or any previous visit from the past 1095 days. Encounter Date: 11/09/23 ECG 12 Lead Result Value Ventricular Rate 73 Atrial Rate 73 DE Interval 196 QRS Duration 106 QT Interval 384 QTC Calculation(Bazett) 423 P [place] -24 R [place] -46 T [place] -41 QRS Count 12 Q Onset 205 P Onset 107 P Offset 148 T Offset 397 QTC Fredericia 410 Narrative Atrial fibrillation Left axis deviation Low voltage QRS Cannot rule out Anterior infarct , age undetermined Abnormal ECG Confirmed by Fabio Bee ([id number]) on 11/15/2023 2:34:28 PM Assessment and Plan [...] Of note the above was done with [employer] system. Note was proofread to minimize errors. [...] 94.6 kg (208 lb 8.9 oz) Cultures: /6 and 8/7 prelim tissue cx NGTD I/O last 3 [...] peripherally Terry Lyons MD * Megan Osorio, - 11/15/2023 8:55 PM EDT Daryn Shah [...] < 1.00 Microbiology 11/05 blood cx neg 8/2 blood cx neg 8/6 IR bx NG 11/13 intra-op cx pending [...] trough, CRP weekly and fax results to [phone] ATTN: Dr. Osorio - Will arrange outpt ID follow up Will follow peripherally for final OR cultures, please reach out w/ questions and when pt is ready for discharge Megan Osorio DO Epic Chat or pager [phone] * Hayley Meléndez, HIM ANALYST - 11/15/2023 3:01 PM EDT Recreation Therapy [...] 115/71 Pulse: 74 79 84 87 Resp: 20 19 19 18 Temp: 36 C (96.8 F) 36.2 [...] Value Ventricular Rate 73 Atrial Rate 73 DE Interval 196 QRS Duration 106 QT Interval 384 QTC Calculation(Bazett) 423 P [place] -24 R [place] -46 T [place] -41 QRS Count 12 Q Onset 205 [...] Of note the above was done with [employer] dictation system. Note was proofread to minimize errors. * Loretta Glass Matamoros, OT - 11/15/2023 12:12 PM EDT [...] Shower/Tub: (sponge bathes) Prior Function: Level of [place]: Independent with ADLs and functional transfers, Needs assistance with homemaking (Sponge bath at baseline. Uses a bedpan at baseline does not transfer to the toilet.) Receives Help From: Family ADL Assistance: Independent (sponge bathes) Homemaking Assistance: (son completes) Ambulatory Assistance: (pt reports non-ambulatory and has not stood in a long time. pt reports she slides to [employer] (not with board)) IADL History: ADL: Eating [...] Moderate assistance, +2 Bed Mobility Comments 1: Kscw-rm-onld instructions provided for log rolling technique, with [...] LUE LUE: Within Functional Limits Outcome Measures: [facility] Daily Activity Putting on and taking off [...] Transfer: No Extremity/Trunk Assessments: RLE RLE : (06/11) LLE LLE : (06/11) Treatments: Therapeutic Exercise Therapeutic Exercise Performed: Yes Therapeutic Exercise Activity 1: sitting EOB ankle pumps, LAQs x10 bilateral LEs Therapeutic Activity Therapeutic Activity Performed: Yes Therapeutic Activity 1: pt sat EOB for 15 min Outcome Measures: [facility] Basic Mobility Turning from your back to [...] to attempt to meet with pt another time.reconciliation coordinator will continue to follow for discharge planning needs. Kay Putnam RN Transitional Support Assistant/TCC [id number] * Elias Pappas - 11/14/2023 10:27 AM [...] biopsy bone deep Narrative: Interpreted By: Caron Donaldson and Calo Sean-Matthew STUDY: CT-guided bone marrow biopsy; 11/13/2023 11:07 am INDICATION: Signs/Symptoms:Bone biopsy, 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 COMPARISON: MR thoracic spine and CT thoracic spine 11/06/2023. ACCESSION NUMBER(S): [id number] ORDERING CLINICIAN: RU ORTEGA TECHNIQUE: INTERVENTIONALIST(S): MD [...] the interventional CT scanner bed. An initial topstitcher lockstitch image and axial noncontrast CT images of [...] Gatica MD. This study was interpreted at [place], [place]. MACRO: None Signed by: Caron Donaldson 11/14/2023 8:11 AM Dictation workstation: [id number] XR chest 1 view Narrative: Interpreted By: Bunny Asher and [place] STUDY: XR CHEST 1 VIEW; 11/13/2023 11:11 pm INDICATION: Signs/Symptoms:preop. COMPARISON: CT chest abdomen pelvis 11/06/2023 ACCESSION NUMBER(S): [id number] ORDERING CLINICIAN: RU ORTEGA FINDINGS: AP upright [...] as stated. This study was interpreted at [place], [place]. MACRO: None Signed by: Bunny Asher 11/14/2023 7:48 AM Dictation workstation: [id number] Physical Exam BP 121/67 Pulse 60 Temp [...] 2 of admission as a transfer from [facility] to [facility] for evaluation of back pain likely from [...] Of note the above was done with Dragon dictation system. Note was proofread to minimize [...] per primary Terry Lyons MD * Elias Bledsoeveda - 11/13/2023 2:14 PM EDT Daryn Shah [...] and clinical correlation Confirmed by Sophie Florian ([id number]) on 11/06/2023 8:58:45 PM MR lumbar spine w and wo IV contrast Narrative: Interpreted By: Lynda Bal, STUDY: MRI of the lumbar spine without IV contrast; 11/06/2023 12:58 pm INDICATION: Signs/Symptoms:Abnormal thoracic CT scan, cancer staging. COMPARISON: None. ACCESSION NUMBER(S): [id number] ORDERING CLINICIAN: VERA HUANG TECHNIQUE: Sagittal and [...] stenosis, narrowing of the subarticular recess and oxfm-bx-uiadvwoc bilateral neural foraminal stenosis. L3-L4: Disc bulge, [...] as stated. This study was interpreted at [place], [place]. MACRO: None Signed by: Lynda Bal 11/06/2023 1:29 PM Dictation workstation: [id number] MR thoracic spine w and wo IV contrast Narrative: Interpreted By: Lynda Bal, STUDY: MR THORACIC SPINE W AND WO IV CONTRAST; 11/06/2023 12:58 pm INDICATION: Signs/Symptoms:Abnormal thoracic CT scan, cancer staging. COMPARISON: None. ACCESSION NUMBER(S): [id number] ORDERING CLINICIAN: VERA HUANG TECHNIQUE: Sagittal T1, T2, STIR and axial T2 and T1 weighted MR images of the thoracic spine were obtained. FINDINGS: Counting was performed from the C2 vertebral body on the topstitcher lockstitch image. Alignment: There is slightly exaggerated thoracic [...] spine with mild degenerative endplate changes and isub-wi-squbxjjs disc height loss. There is prevertebral infiltration [...] with moderate to severe spinal canal and cwly-kw-jvpxxqew bilateral neural foraminal stenosis. T9-T10, T10-T11: Degenerative [...] Lynda Bal 11/06/2023 1:24 PM Dictation workstation: [id number] MR cervical spine w and wo IV contrast Narrative: Interpreted By: Lynda Bal, STUDY: MR CERVICAL SPINE W AND WO IV CONTRAST; 11/06/2023 12:58 pm INDICATION: Signs/Symptoms:Abnormal CT thoracic spine, Cancer staging. COMPARISON: None. ACCESSION NUMBER(S): [id number] ORDERING CLINICIAN: VERA HUANG TECHNIQUE: Sagittal T1, [...] throughout the cervical spine. Varying degrees of jrzc-yn-plldfwtr disc height loss. Cord: Within the limitation [...] Lynda Bal 11/06/2023 1:10 PM Dictation workstation: [id number] CT chest abdomen pelvis wo IV contrast Narrative: STUDY: CT Chest, Abdomen, and Pelvis without IV Contrast; 11/06/2023, 804 INDICATION: Abnormal thoracic spine CT. COMPARISON: CT thoracic 11/06/2023, XR chest 10/09/2023, CT abd 01/05/2020. ACCESSION NUMBER(S): [id number] ORDERING CLINICIAN: VERA HUANG TECHNIQUE: CT of [...] back pain. COMPARISON: None available. ACCESSION NUMBER(S): [id number] ORDERING CLINICIAN: SKINNY STEEL TECHNIQUE: CT of [...] 2 of admission as a transfer from [facility] to [facility] for evaluation of back pain likely from [...] risk) - 3.9% 30-day risk of , [place], or cardiac arrest Per patient and chart [...] hold tonight 11/13, possible OR tomorrow Elias Pappas, MS4 Associated attestation - Ru [...] Of note the above was done with [employer] system. Note was proofread to minimize errors. [...] needs, clinical response, and signs/symptoms of toxicity. Bryanna McqueenD * Terry Lyons MD - 11/13/2023 8:52 [...] Comments: Hospital bed Prior Function: Level of [place]: Independent with ADLs and functional transfers (Sponge [...] Within Functional Limits, , and Outcome Measures: [facility] Daily Activity Putting on and taking off [...] 2:54 PM Alonzo Antony OTR/OTD Rehab Office: [phone] * Sophie Trevino PT - 11/12/2023 2:21 PM EDT Physical [...] despite encouragement) Extremity/Trunk Assessments: RLE RLE : (3/5) LLE LLE : (3/5) Outcome Measures: [facility] Basic Mobility Turning from your back to [...] during interdisciplinary rounds. Team members present: , TCC Plan per Medical/Surgical team: Pt transferred from [facility] with multiple large lung nodules c/f mets, plan for IR for biopsy today and consult with ID regarding fpc IV abx plan. Neuro-surgery team, PT/OT consulted. Payer: [employer] Status: Inpatient Discharge disposition: PT/OT evals are pending, anticipate pt will need inpatient rehab based on current surgical specialty center at coordinated [facility] mobility score of 11. Potential Barriers: none ADOD: 11/14 Attempted to meet with pt this afternoon but she was resting in bed with her eyes closed, decision made not to aware pt/ assessment deferred to another date and time. reconciliation coordinator will continue to follow for discharge planning needs. Kay Putnam RN Transitional Support Assistant/TCC [id number] * Ru Ortega MD - 11/12/2023 12:32 [...] last 72 hours Lab Units 11/12/23 0757 11/11/23 1722 11/11/23 0746 SODIUM mmol/L 136 134* [...] 72 hours Lab Units 11/12/2375611/11/23 17211/11/23 0746 GLUCOSE mg/dL 118* 166* 139* No [...] and clinical correlation Confirmed by Sophie Florian ([id number]) on 11/06/2023 8:58:45 PM MR lumbar spine w and wo IV contrast Narrative: Interpreted By: Lynda Bal, STUDY: MRI of the lumbar spine without IV contrast; 11/06/2023 12:58 pm INDICATION: Signs/Symptoms:Abnormal thoracic CT scan, cancer staging. COMPARISON: None. ACCESSION NUMBER(S): [id number] ORDERING CLINICIAN: VERA HUANG TECHNIQUE: Sagittal and [...] stenosis, narrowing of the subarticular recess and ldpb-ro-ujsiqjag bilateral neural foraminal stenosis. L3-L4: Disc bulge, [...] as stated. This study was interpreted at [place], [place]. MACRO: None Signed by: Lynda Bal 11/06/2023 1:29 PM Dictation workstation: [id number] MR thoracic spine w and wo IV contrast Narrative: Interpreted By: Lynda Bal, STUDY: MR THORACIC SPINE W AND WO IV CONTRAST; 11/06/2023 12:58 pm INDICATION: Signs/Symptoms:Abnormal thoracic CT scan, cancer staging. COMPARISON: None. ACCESSION NUMBER(S): [id number] ORDERING CLINICIAN: VERA HUANG TECHNIQUE: Sagittal T1, T2, STIR and axial T2 and T1 weighted MR images of the thoracic spine were obtained. FINDINGS: Counting was performed from the C2 vertebral body on the topstitcher lockstitch image. Alignment: There is slightly exaggerated thoracic [...] spine with mild degenerative endplate changes and tnhj-oi-dnehseog disc height loss. There is prevertebral infiltration [...] with moderate to severe spinal canal and mgzf-sf-vvmafaxr bilateral neural foraminal stenosis. T9-T10, T10-T11: Degenerative [...] Lynda Bal 11/06/2023 1:24 PM Dictation workstation: [id number] MR cervical spine w and wo IV contrast Narrative: Interpreted By: Lynda Bal, STUDY: MR CERVICAL SPINE W AND WO IV CONTRAST; 11/06/2023 12:58 pm INDICATION: Signs/Symptoms:Abnormal CT thoracic spine, Cancer staging. COMPARISON: None. ACCESSION NUMBER(S): [id number] ORDERING CLINICIAN: VERA HUANG TECHNIQUE: Sagittal T1, [...] throughout the cervical spine. Varying degrees of hrkk-fr-pmgrbtyz disc height loss. Cord: Within the limitation [...] Lynda Bal 11/06/2023 1:10 PM Dictation workstation: [id number] CT chest abdomen pelvis wo IV contrast Narrative: STUDY: CT Chest, Abdomen, and Pelvis without IV Contrast; 11/06/2023, 0805 INDICATION: Abnormal thoracic spine CT. COMPARISON: CT thoracic 11/06/2023, XR chest 10/09/2023, CT abd 01/05/2020. ACCESSION NUMBER(S): [id number] ORDERING CLINICIAN: VERA HUANG TECHNIQUE: CT of [...] back pain. COMPARISON: None available. ACCESSION NUMBER(S): [id number] ORDERING CLINICIAN: SKINNY STEEL TECHNIQUE: CT of [...] QT Interval 354 QTC Calculation(Bazett) 447 R [place] -50 T [place] 125 QRS Count 16 Q Onset 203 [...] and clinical correlation Confirmed by Sophie Florian ([id number]) on 11/06/2023 8:58:45 PM Assessment and Plan Back pain: Appears consistent with vertebral osteomyelitis/discitis. Overall lower suspicion related to small pulmonary nodules. -Consulting IR for vertebral biopsy. Will send for culture and pathology to rule out mets. May [id number] testing if cultures are negative. Patient be [...] Of note the above was done with [employer] system. Note was proofread to minimize errors. [...] Lynda Bal 11/06/2023 1:10 PM Dictation workstation: [id number] CT chest abdomen pelvis wo IV contrast [...] Presenting for progressive back pain, transferred from [facility] for letty rosurgical evaluation, ID consulted [...] Medicine PGY2 ID Consult Team A Pager [phone] [employer] Preferred Associated attestation - Megan Osorio [...] continuing abx for now. Megan Osorio DO [employer] or pager [phone] * Carrington De Los Santos MD - [...] and clinical correlation Confirmed by Sophie Florian ([id number]) on 11/06/2023 8:58:45 PM MR lumbar spine w and wo IV contrast Narrative: Interpreted By: Lynda Bal, STUDY: MRI of the lumbar spine without IV contrast; 11/06/2023 12:58 pm INDICATION: Signs/Symptoms:Abnormal thoracic CT scan, cancer staging. COMPARISON: None. ACCESSION NUMBER(S): [id number] ORDERING CLINICIAN: VERA HUANG TECHNIQUE: Sagittal and [...] stenosis, narrowing of the subarticular recess and nqfw-zc-ftuvlcgf bilateral neural foraminal stenosis. L3-L4: Disc bulge, [...] as stated. This study was interpreted at [place], [place]. MACRO: None Signed by: Lynda Bal 11/06/2023 1:29 PM Dictation workstation: [id number] MR thoracic spine w and wo IV contrast Narrative: Interpreted By: Lynda Bal, STUDY: MR THORACIC SPINE W AND WO IV CONTRAST; 11/06/2023 12:58 pm INDICATION: Signs/Symptoms:Abnormal thoracic CT scan, cancer staging. COMPARISON: None. ACCESSION NUMBER(S): [id number] ORDERING CLINICIAN: VERA HUANG TECHNIQUE: Sagittal T1, T2, STIR and axial T2 and T1 weighted MR images of the thoracic spine were obtained. FINDINGS: Counting was performed from the C2 vertebral body on the topstitcher lockstitch image. Alignment: There is slightly exaggerated thoracic [...] spine with mild degenerative endplate changes and evol-bb-rltfokjk disc height loss. There is prevertebral infiltration [...] with moderate to severe spinal canal and fsdv-eb-lvzgkpgz bilateral neural foraminal stenosis. T9-T10, T10-T11: Degenerative [...] Lynda Bal 11/06/2023 1:24 PM Dictation workstation: [id number] MR cervical spine w and wo IV contrast Narrative: Interpreted By: Lynda Bal, STUDY: MR CERVICAL SPINE W AND WO IV CONTRAST; 11/06/2023 12:58 pm INDICATION: Signs/Symptoms:Abnormal CT thoracic spine, Cancer staging. COMPARISON: None. ACCESSION NUMBER(S): [id number] ORDERING CLINICIAN: VERA HUANG TECHNIQUE: Sagittal T1, [...] throughout the cervical spine. Varying degrees of qbtb-dz-boqzngzh disc height loss. Cord: Within the limitation [...] Lynda Bal 11/06/2023 1:10 PM Dictation workstation: [id number] CT chest abdomen pelvis wo IV contrast Narrative: STUDY: CT Chest, Abdomen, and Pelvis without IV Contrast; 11/06/2023, 08 INDICATION: Abnormal thoracic spine CT. COMPARISON: CT thoracic 11/06/2023, XR chest 10/09/2023, CT abd 01/05/2020. ACCESSION NUMBER(S): [id number] ORDERING CLINICIAN: VERA HUANG TECHNIQUE: CT of [...] back pain. COMPARISON: None available. ACCESSION NUMBER(S): [id number] ORDERING CLINICIAN: SKINNY STEEL TECHNIQUE: CT of [...] QT Interval 354 QTC Calculation(Bazett) 447 R [place] -50 T [place] 125 QRS Count 16 Q Onset 203 [...] and clinical correlation Confirmed by Sophie Florian ([id number]) on 11/06/2023 8:58:45 PM Assessment and Plan Back pain: Appears consistent with vertebral osteomyelitis/discitis. Overall lower suspicion related to small pulmonary nodules. -Consulting IR for vertebral biopsy. Will send for culture and pathology to rule out mets. May [id number] testing if cultures are negative. Patient be [...] Of note the above was done with [employer] system. Note was proofread to minimize errors. [...] and clinical correlation Confirmed by Sophie Florian ([id number]) on 11/06/2023 8:58:45 PM MR lumbar spine w and wo IV contrast Narrative: Interpreted By: Lynda Bal, STUDY: MRI of the lumbar spine without IV contrast; 11/06/2023 12:58 pm INDICATION: Signs/Symptoms:Abnormal thoracic CT scan, cancer staging. COMPARISON: None. ACCESSION NUMBER(S): [id number] ORDERING CLINICIAN: VERA HUANG TECHNIQUE: Sagittal and [...] stenosis, narrowing of the subarticular recess and ntru-bf-ewcoqrph bilateral neural foraminal stenosis. L3-L4: Disc bulge, [...] as stated. This study was interpreted at [place], [place]. MACRO: None Signed by: Lynda Bal 11/06/2023 1:29 PM Dictation workstation: [id number] MR thoracic spine w and wo IV contrast Narrative: Interpreted By: Lynda Bal, STUDY: MR THORACIC SPINE W AND WO IV CONTRAST; 11/06/2023 12:58 pm INDICATION: Signs/Symptoms:Abnormal thoracic CT scan, cancer staging. COMPARISON: None. ACCESSION NUMBER(S): [id number] ORDERING CLINICIAN: VERA HUANG TECHNIQUE: Sagittal T1, T2, STIR and axial T2 and T1 weighted MR images of the thoracic spine were obtained. FINDINGS: Counting was performed from the C2 vertebral body on the topstitcher lockstitch image. Alignment: There is slightly exaggerated thoracic [...] spine with mild degenerative endplate changes and grsw-xp-ixrcxyyb disc height loss. There is prevertebral infiltration [...] with moderate to severe spinal canal and rzpz-fl-xypdizod bilateral neural foraminal stenosis. T9-T10, T10-T11: Degenerative [...] Lynda Bal 11/06/2023 1:24 PM Dictation workstation: [id number] MR cervical spine w and wo IV contrast Narrative: Interpreted By: Lynda Bal, STUDY: MR CERVICAL SPINE W AND WO IV CONTRAST; 11/06/2023 12:58 pm INDICATION: Signs/Symptoms:Abnormal CT thoracic spine, Cancer staging. COMPARISON: None. ACCESSION NUMBER(S): [id number] ORDERING CLINICIAN: VERA HUANG TECHNIQUE: Sagittal T1, [...] throughout the cervical spine. Varying degrees of djlh-or-ylgrgpjg disc height loss. Cord: Within the limitation [...] Lynda Bal 11/06/2023 1:10 PM Dictation workstation: [id number] CT chest abdomen pelvis wo IV contrast Narrative: STUDY: CT Chest, Abdomen, and Pelvis without IV Contrast; 11/06/2023, 804 INDICATION: Abnormal thoracic spine CT. COMPARISON: CT thoracic 11/06/2023, XR chest 10/09/2023, CT abd 01/05/2020. ACCESSION NUMBER(S): [id number] ORDERING CLINICIAN: VERA HUANG TECHNIQUE: CT of [...] back pain. COMPARISON: None available. ACCESSION NUMBER(S): [id number] ORDERING CLINICIAN: SKINNY STEEL TECHNIQUE: CT of [...] QT Interval 354 QTC Calculation(Bazett) 447 R [place] -50 T [place] 125 QRS Count 16 Q Onset 203 [...] and clinical correlation Confirmed by Sophie Florian ([id number]) on 11/06/2023 8:58:45 PM Assessment and Plan Back pain: Appears consistent with vertebral osteomyelitis/discitis. Overall lower suspicion related to small pulmonary nodules. -Consulting IR for vertebral biopsy. Will send for culture and pathology to rule out mets. May [id number] testing if cultures are negative -Continue vancomycin [...] Of note the above was done with [employer] system. Note was proofread to minimize errors. * Bryanna LeeD - 11/10/2023 11:23 AM EDT Vancomycin Dosing by Pharmacy- FOLLOW UP Drayn Shah is a 77 y.o. year old [...] 0 % Probability of nephrotoxicity (Lodise GIANNA 2009): 8 % The next level will be [...] 7 days Lab Units 11/09/23 03011/08/23 0511/07/23 04211/06/23 0513 SODIUM mmol/L 132* -- 133* 133* [...] from last 7 days Lab Units 11/08/23 0522 11/06/23 0513 TROPHS ng/L -- 9 BNP pg/mL [...] QT Interval 354 QTC Calculation(Bazett) 447 R [place] -50 T [place] 125 QRS Count 16 Q Onset 203 [...] and clinical correlation Confirmed by Sophie Florian ([id number]) on 11/06/2023 8:58:45 PM Imaging MR lumbar [...] as stated. This study was interpreted at [place], [place]. MACRO: None Signed by: Lynda Bal 11/06/2023 1:29 PM Dictation workstation: [id number] MR thoracic spine w and wo IV [...] Lynda Bal 11/06/2023 1:24 PM Dictation workstation: [id number] MR cervical spine w and wo IV contrast Result Date: 11/06/2023 The examination is moderately degraded by patient motion artifact. Within this limitation, no evidence of focal osseous metastatic disease. No definite abnormal signal or enhancement within the cervical cord. Multilevel degenerative changes as detailed above. MACRO: None Signed by: Lynda Bal 11/06/2023 1:10 PM Dictation workstation: [id number] CT chest abdomen pelvis wo IV contrast [...] (02?), DMII (A1c 7.2% 03/01 and Cellulitis on day 1 of admission as a transfer from [facility] to [facility] for work up of newly found multiple [...] Primary Emergency Contact: BEVERLY SHAH [address] [place] [phone] [facility] Relation: Son Preferred language: Libyan Construction Estimator needed? No Secondary Emergency Contact: Rissa SHAH Address: [address] [place], [place] [address] [address] [facility] Relation: Son Preferred language: [employer]yan [employer] Estimator needed? No Thomas Hoffman MD, MSc Internal [...] primary Bobby Gonzalez MD * Sebastian Crow, BryannaD - 11/09/2023 11:24 AM EDT Pharmacy Admission [...] Sebastian Crow PharmD Transitions of Care Pharmacist [facility] Please reach out via Secure Chat for questions * Tracy Thompson, [facility] - 11/09/2023 10:52 AM EDT Pharmacy Medication History Review Daryn Shah is a 77 y.o. female admitted for Discitis, unspecified, thoracic region. Pharmacy reviewed the patient's zfmsy-vs-wbcovhicv medications and allergies for accuracy. The list below reflects the updated ASSEMBLER KNIFE list. Comments regarding how patient may be [...] at discharge. Pharmacy has been updated to [facility]. Sources used to confirm home medication list include: Patient interview, OARRS, Care Everywhere, medication fill history, Discharge Summary 10/15/23. Medications added: None Medications modified: None Medications to be removed: Baclofen Below are additional concerns with the patient's ASSEMBLER KNIFE list. None to note Tracy Thompson [facility] Transitions of Care Pharmacist [facility] Please reach out via Secure Chat for questions, or if no response call Teepix or Squidbid documented in this [facility] Work Phone: 1(141) 130-503308-13-2024 Miscellaneous Notes* Care Plan - Belgica York RN - 11/20/2023 12:17 AM EDT Problem: Skin Goal: Decreased wound size/increased tissue granulation at next dressing change 11/20/2023 0013 by Belgica York RN Outcome: Progressing Flowsheets (Taken 11/15/2023 0649 by Raquel Velasquez LPN) Decreased wound size/increased tissue granulation at next dressing change: Promote sleep for wound healing 11/20/2023 0006 by Belgica York RN Outcome: Progressing Goal: Participates in plan/prevention/treatment measures 11/20/2023 0013 by Belgica York RN Flowsheets (Taken 11/18/202358 [...] from fall injury Outcome: Progressing * Care Plan - Sarah Zepeda RN - 11/18/2023 7:50 AM EDT Problem: Skin Goal: Decreased wound size/increased tissue granulation at next dressing change Outcome: Progressing Goal: Participates in plan/prevention/treatment measures Outcome: Progressing Goal: Prevent/manage excess moisture Outcome: Progressing Goal: Prevent/minimize sheer/friction injuries Outcome: Progressing Goal: Promote/optimize nutrition Outcome: Progressing Goal: Promote skin healing Outcome: Progressing Flowsheets (Taken 11/18/2023 0749) Promote skin healing: Turn/reposition every 2 hours/use [...] if present Goal: Prevent/minimize sheer/friction injuries 11/17/2023 1510 by Sarah Zepeda RN Outcome: Progressing 11/17/20231509 by Sarah Zepeda RN Flowsheets (Taken 11/17/2023 151) Prevent/minimize sheer/friction injuries: HOB 30 degrees or [...] Labs, ECG/Telemetry: Yes Risks/Benefits/Alternatives Discussed with Patient/POA/Legal [employer] Special Education Teacher: Yes Stop Sign on Door: Yes Time [...] ABX Insertion Team Members in the Room: Larissa Espino LPN Initial Extremity Circumference (cm): 41 Insertion [...] Atrial Junction Line Confirmation: ECG Lot #: [id number] Kettle Coordinator: Bard PICC Line Exp Date: 02/06/2025 Securement: [...] Promote skin healing Outcome: Progressing Flowsheets (Taken 11/16/20230) Promote skin healing: Assess skin/pad under line(s)/device(s) [...] Note Date: 11/09/2023 - 11/14/2023 OR Location: [facility] OR Name: Daryn Shah, : 1945, Age: 77 y.o., , Sex: female Diagnosis Pre-op Diagnosis * Discitis, unspecified, thoracic region [M46.44] Post-op Diagnosis * Discitis, unspecified, thoracic region [M46.44] Procedures T5-T9 laminectomy for decompression and evacuation of epidural phlegmon Surgeons * Braulio Oneil - Primary Resident/Fellow/Other Distillation Operator Helper: Surgeons and Role: * Giovanna Coles MD - Resident - Assisting * Dyan Waldron MD - Resident - Assisting Procedure Summary Anesthesia: Anesthesia type not filed in the log. ASA: III Anesthesia Staff: Anesthesiologist: Cameron Matos MD; Carolina Bright MD C-AA: YUDITH Mo Model Home Sales Greeter: Miles Vidal MD Estimated Blood Loss: 150 [...] TISSUE/WOUND CULTURE/SMEAR Braulio Oneil MD PhD 11/14/2023 5646 B : LEFT LATERAL EPIDURAL Swab SPINE TISSUE/WOUND CULTURE/SMEAR Braulio Oneil MD PhD 11/14/2023 1751 Staff: Carpenter Repair: Jennie Carpenter Repair: Kya Scrub Person: Jessica Daiub Person: Stephanie Salas Carpenter Repair: Yu Salas Scrub: Sujatha Salas Scrub: Anahi Relief Carpenter Repair: Waqar Drains and/or Catheters: Closed/Suction Drain 1 [...] intubation. Patient was then flipped prone onto [facility] 4 post table and all pressure points [...] closure. First we left a 10 round Citizen Of [place] drain and a subfascial layer. Muscle and [...] Radiology Brief Postprocedure Note Attending: Dr. Donaldson Distillation Operator Helper: Dr. Gatica Diagnosis: T6-T9 discitis/osteomyelitis Description of [...] this shift * Hospital Course - Elias Elyse - 11/11/2023 1:42 PM EDT Daryn Shah is a 77 y.o F w/ PMHx of Afib (on Xarelto for AC and atenolol for RC), HTN (on lisinopril and triamterene-hydrochlorothiazide), DMII (A1c 7.2% 03/01), SIADH, 6 year inability to ambulate who presented as a transfer from [facility] to [facility] on 11/09/23 for 4 weeks of back pain from suspected osteomyelitis/discitis and newly found multiple large lung nodules c/f metastatic disease. Patient was BIBA to [facility] and was admitted on 11/06/23 for intractable back pain. MRI showed concerns for osteomyelitis/discitis mid-lower thoracic spine (detailed above). She was started on vancomycin and Zosyn. Was transferred [facility] on 11/09/23 and was continued on vancomycin [...] pain controlle dduring shift. [facility] Phone: 1(316) 468-715708-12-2024 Consult note* Carmen Rodriguez MD - 11/19/2023 3:00 PM EDTAssociated Order(s): Inpatient consult to Geriatric Medicine Inpatient consult to Geriatric Medicine Consult performed by: Carmen Rodriguez MD Consult ordered by: Sai Marie MD Primary Team: General Medicine Admit Date: 11/09/2023 Emergency Contact: Extended Emergency Contact Information Primary Emergency Contact: BEVERLY SHAH Address: [address] [place] [phone] [facility] Relation: Son Preferred language: [employer]yan [employer] Estimator needed? No Secondary Emergency Contact: Rissa SHAH Address: [address] [place] [phone] [facility] Relation: Son Preferred language: [employer] Estimator needed? No Reason For Consult: Concern for [...] her son who is currently admitted in [facility]. Patient stated she was previously on Paxil [...] BID Giovanna Coles MD 17 g at 101 [Held by provider] rivaroxaban (Xarelto) tablet 20 mg 20 mg oral Daily Eulalia Champagne MD rosuvastatin (Crestor) tablet 10 mg 10 mg oral Nightly Belen Azghadi, MD 10 mg at 11/18/23 2100 sennosides [...] Daily Giovanna Coles MD 75 mg at 901 The patient's outpatient electronic medical record (EMR) is reviewed, notable information includes: 10/09-10/15/23: [facility] admitted for Acute Proteus Mirabilis UTI. 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 COMPARISON: 11/13/2023 chest radiograph ACCESSION NUMBER(S): [id number] ORDERING CLINICIAN: RU ORTEGA FINDINGS: AP radiograph [...] as stated. [facility] [place] MACRO: None Signed by: Pastor Scalesani 11/17/2023 6:46 AM Dictation workstation: [id number] Head/Brain Imaging No results found for this or any previous visit. No results found for this or any previous visit. DATA: EKG: QTC Encounter Date: 11/09/23 ECG 12 Lead Result Value Ventricular Rate 73 Atrial Rate 73 DE Interval 196 QRS Duration 106 QT Interval 384 QTC Calculation(Bazett) 423 P [place] -24 R [place] -46 T [place] -41 QRS Count 12 Q Onset 205 [...] likes music therapy and liked when her brush filler hand from [place] came to visit before her surgery. Plan: Increase Effexor to 112.5mg daily Consult music therapy and director of regional sales services 2. Concern for cognitive impairment - [...] Goals of Care: -Health care power of county attorney:No -Living will:No Code status:DNR/DNI 4M AGE-FRIENDLY INITIATIVE: [...] over the weekend, please page Geriatrics pager [phone] Consult Billing Time Prep time on date of patient encounter(minutes):30 Time directly with patient/family/caregiver(minutes):65 Documentation time(minutes):30 TOTAL TIME(minutes):125 Carmen Rodriguez MD * Kemi Priest RN - 11/12/2023 6:18 PM EDTAssociated Order(s): WOUND OSTOMY NURSING CONSULT Images from the original note were not included. Wound Care Consult Visit Date: 11/12/2023 Patient Name: Dayrn Shah Date of : 1945 Reason for Consult: Wound to right lower leg Wound History: Ms Shah is a 77 y.o F w/ PMHx of Afib (on Xeralto), COPD (02?), DMII (A1c 7.2% 03/01 and Cellulitis presents as a transfer from [facility] to [facility] for work up of newly found multiple large lung nodules c/f metastatic disease. Pertinent Labs: Albumin Date Value Ref Range Status 11/12/2023 2.8 (L) 3.4 - 5.0 g/dL Final Wound Assessment: Wound 11/06/23 Traumatic Leg Right;Lower (Active) Wound Image 11/12/23 1604 Site Assessment [place] 11/12/23 1604 [place]-Wound Assessment Hypopigmented 11/12/23 1604 [...] is a 77 y.o. female transferred from [facility] for neurosurgical evaluation for back pain starting [...] ago, at which time she presented to [facility]. Imaging atthat time was most consistent with [...] was not relieved by acetaminophen. Imaging at [facility] was concerning for osteomyelitis with perivertebral abscesses as well as multiple new large pulmonary nodules. Blood cultures drawn and started on vanc/zosyn, which was changed to vanc/cefepime on admission to [facility]. Objective Physical Exam Constitutional: General: She is [...] 8.9 oz) Labs: CBC: Recent Labs 11/09/23 03011/08/2352211/07/23 0422 WBC 8.8 7.8 7.8 HGB 10.8* 10.3* 9.9* HCT 34.5* 33.3* 32.4* PLT 263 228 246 MCV 85 86 87 CMP: Recent Labs 11/09/23 03011/08/23 0523 11/07/23 0422 11/06/23 0513 NA 132* [...] is a 77 y.o. female transferred from [facility] for neurosurgical evaluation for back pain starting [...] MD PGY2 ID Consult Service A Pager [phone] Associated attestation - Megan Osorio DO - [...] course. She is receptive to speaking w/ director of regional sales services and other support services offered while inpatient. Recommendations: -Cont IV vanc, dosed w/ pharmacy -Cont IV pip-tazo 3.375gm q6H -Will follow up blood cx and IR biopsy plans, when collected please send for pathology and gram stain w/ bacterial cx; if no growth will request 16s testing Will follow Megan Osorio DO Epic Chat or pager [phone] * Raul Burgos, PharmD - 11/09/2023 3:09 [...] loading dose. Patient is a transfer from [facility] and last dose taken was 1750mg 11/07 [...] needs, clinical response, and signs/symptoms of toxicity. Bryanna CharlesD * Bobby Gonzalez MD - 11/09/2023 3:00 [...] as stated. This study was interpreted at [place], [place]. MACRO: None Signed by: Lynda Bal 11/06/2023 1:29 PM Dictation workstation: [id number] Assessment/Plan Assessment: Daryn is a 77 y.o. [...] note signed by attending documented in this [facility] Work Phone: 1(404) 185-770208-12-2024 Hospital Discharge instructions* Discharge Instructions* Elias Pappas [...] controlled. We recommended you go to a snf facility for a period of time to [...] Everywhere. * Peripherally-Inserted Central Catheter Discharge Instructions (Libyan) * Osteomyelitis in adults (Libyan) documented in this [facility] Work Phone: 1([phone]) 292-272608-06-2024 History and physical note* Jadyn Chan MD [...] as stated. This study was interpreted at [place], [place]. MACRO: None Signed by: Lynda Bal 11/06/2023 1:29 PM Dictation workstation: [id number] Assessment/Plan Assessment: Daryn is a 77 y.o. [...] and Cellulitis presents as a transfer from [facility] to [facility] for work up of newly found multiple large lung nodules c/f metastatic disease. At baseline patient is non-ambulatory and uses motorized scooter inside the house. She is bedbound most of the day and her primary caregiver is her son who is currently admitted at [facility]. Patient was in her usual state of [...] Results from last 7 days Lab Units 11/08/2352211/07/2342111/06/23 0513 WBC AUTO x10*3/uL 7.8 7.8 10.8 HEMOGLOBIN g/dL 10.3* 9.9* 11.6* HEMATOCRIT % 33.3* 32.4* 37.0 PLATELETS AUTO x10*3/uL 228 246 353 Results from last 7 days Lab Units 11/08/2352211/07/2342111/06/23 0513 SODIUM mmol/L -- 133* 133* POTASSIUM [...] present. Left lower leg: Edema present. Comments: [place] appearing BL lower extremities. Skin: General: Skin [...] (?), DMII (A1c 7.2% 03/01 and Cellulitis presents as a transfer from [facility] to [facility] for work up of newly found multiple [...] (confirmed on admission) NOK: Eva Shah (son): [phone] Not yet staffed with the attending. Eulalia [...] started when her son was and the tukjdqqg-sx-kxj and grandchild left the home le aving patient depressed. [facility]: 1(775) 645-899307-08-2024 Nurse Note* Fátima Guadarrama RN - 10/15/2023 5:52 PM EDT Called Robbie Reyes and gave report. [facility]07-08-2024 Nurse Note* Fátima Guadarrama RN - 10/15/2023 5:52 PM EDT Called Robbie Reyes and gave report. * Yennifer Gregg RN - 10/12/2023 6:34 PM EDT 10/11/23 am to 10/12/23 pm 963 ml intake only. Pt is declining meals. [facility] Work Phone: [phone]) [phone] Hospital Discharge instructions* Discharge Instructions* Sonya Hackett RN - 10/15/2023 5:05 PM EDT Hyponatremia The Basics Written by the doctors and editors at [facility] What is hyponatremia? -- Hyponatremia is the [...] take care of yourself. documented in this [facility] Work Phone: 1([phone]) 858-516807-08-2024 Plan of care note* Care Plan - [...] goals for the shift include pain control [facility] Work Phone: [phone]) [phone] Miscellaneous Notes* Care Plan - Fátima Guadarrama [...] include pain control * Significant Event - Tamika Jackson AVELINO-S - 10/15/2023 3:55 PM EDT 7000 Physician [...] plan/prevention/treatment measures Outcome: Progressing Flowsheets (Taken 10/14/2023 1011) Participates in plan/prevention/treatment measures: Increase activity/out of bed for meals Goal: Prevent/minimize sheer/friction injuries Outcome: Progressing Flowsheets (Taken 10/14/2023 1011) Prevent/minimize sheer/friction injuries: Use pull sheet Goal: Promote/optimize nutrition Outcome: Progressing Flowsheets (Taken 10/14/2023 1011) Promote/optimize nutrition: Consume > 50% meals/supplements Goal: Prevent/manage excess moisture Outcome: Progressing Flowsheets (Taken 10/14/2023 1011) Prevent/manage excess moisture: Moisturize dry skin Goal: Promote skin healing Outcome: Progressing Flowsheets (Taken 10/14/2023 1011) Promote skin healing: Turn/reposition every 2 hours/use [...] Promote/optimize nutrition Outcome: Progressing Flowsheets (Taken 10/10/2023 1121) Promote/optimize nutrition: Consume > 50% meals/supplements Goal: Promote skin healing Outcome: Progressing Flowsheets (Taken 10/10/2023 1121) Promote skin healing: Rotate device position/do not [...] no focal motor deficits. [facility] Work Phone: [phone]) 362-744107-08-2024 Note* Significant Event - BILL Vizcaino - [...] and accurate reflection of the individual's condition. [facility] Work Phone: [phone]) 615-270207-08-2024 History of Present illness Narrative* BILL Vizcaino - 10/15/2023 3:41 PM EDT Pt reviewed during Care Rounds today and she continues to be ready for discharge. Update in CarePort from [facility] that auth was not started over the weekend. SW met with pt to review her plan and the IM. Pt confirms her desires to discharge to [facility] and understands we are waiting on auth which was not started until today. Precert request sent to [facility] and is pending. Updatesattached in Careport for [facility]- they do not need a COVID. Care Transitions will continue to follow. ADDM: Update from [facility] that auth has been approved. Update in Careport to [facility] and they can accept today. Final updates/orders [facility] was completed by [facility]/[place]. Transportation arranged for 6pm. No further needs identified. BILL Vizcaino * Dorota Cavazos, MAYCO-GLOVE BOARDER - 10/14/2023 1:24 PM EDT Daryn Shah [...] scan of the abdomen 01/05/2020 ACCESSION NUMBER(S): [id number] ORDERING CLINICIAN: FLAVIO MILES TECHNIQUE: Axial noncontrast [...] Normal caliber. GALLBLADDER: Status post cholecystectomy. PANCREAS: Giyx-ly-dlbgkgpw fatty atrophy of the pancreas. SPLEEN: Splenomegaly [...] Vlad Araya 10/10/2023 3:17 AM Dictation workstation: [id number] XR chest 1 view Narrative: Interpreted By: Vlad Araya, STUDY: XR CHEST 1 VIEW; 10/10/2023 2:03 am INDICATION: Signs/Symptoms:weakness. COMPARISON: Chest x-ray 09/08/2022 ACCESSION NUMBER(S): [id number] ORDERING CLINICIAN: FLAVIO MILES FINDINGS: Multiple overlying leads are present. CARDIOMEDIASTINAL SILHOUETTE: Cardiomediastinal silhouette is stable in size and configuration. LUNGS: No consolidation, pleural effusion or pneumothorax. ABDOMEN: No remarkable upper abdominal findings. BONES: Multilevel degenerative changes of the spine. Bilateral shoulder osteoarthrosis. Impression: No acute cardiopulmonary process. MACRO: None Signed by: Vlad Araya 10/10/2023 2:11 AM Dictation workstation: [id number] Physical Exam General Appearance: AAO x 3, [...] but he is currently an inpatient at [facility] with cystic fibrosis and a second son will arrive home from [place] sometime later today. Patient states she is [...] scan of the abdomen 01/05/2020 ACCESSION NUMBER(S): [id number] ORDERING CLINICIAN: FLAVIO MILES TECHNIQUE: Axial noncontrast [...] Normal caliber. GALLBLADDER: Status post cholecystectomy. PANCREAS: Bmzs-bd-mqwmuate fatty atrophy of the pancreas. SPLEEN: Splenomegaly [...] Vlad Araya 10/10/2023 3:17 AM Dictation workstation: [id number] XR chest 1 view Narrative: Interpreted By: Vlad Araya, STUDY: XR CHEST 1 VIEW; 10/10/2023 2:03 am INDICATION: Signs/Symptoms:weakness. COMPARISON: Chest x-ray 09/08/2022 ACCESSION NUMBER(S): [id number] ORDERING CLINICIAN: FLAVIO MILES FINDINGS: Multiple overlying leads are present. CARDIOMEDIASTINAL SILHOUETTE: Cardiomediastinal silhouette is stable in size and configuration. LUNGS: No consolidation, pleural effusion or pneumothorax. ABDOMEN: No remarkable upper abdominal findings. BONES: Multilevel degenerative changes of the spine. Bilateral shoulder osteoarthrosis. Impression: No acute cardiopulmonary process. MACRO: None Signed by: Vlad Araya 10/10/2023 2:11 AM Dictation workstation: [id number] Physical Exam General Appearance: AAO x 3, [...] at home. She mentioned that her son tommy and he was admitted to another hospital. [...] facilities. SW sent referrals to facilities in per Pt's choice. Avoidable days entered. SW tofollow for acceptance, choice, and precert. Plan is for Pt to discharge to SNF. 1555 SW met w/ Pt at bedside. Advised Pt of accepting facilities and [facility] not [facility] with a semi-private room. SW sent message to [facility] to indicate they are FOC. Discharge plan is [facility] pending precert. SW to follow. * [facility] [...] scan of the abdomen 01/05/2020 ACCESSION NUMBER(S): [id number] ORDERING CLINICIAN: FLAVIO MILES TECHNIQUE: Axial noncontrast [...] Normal caliber. GALLBLADDER: Status post cholecystectomy. PANCREAS: Duka-jo-aynklcrz fatty atrophy of the pancreas. SPLEEN: Splenomegaly [...] Vlad Araya 10/10/2023 3:17 AM Dictation workstation: [id number] XR chest 1 view Narrative: Interpreted By: Vlad Araya, STUDY: XR CHEST 1 VIEW; 10/10/2023 2:03 am INDICATION: Signs/Symptoms:weakness. COMPARISON: Chest x-ray 09/08/2022 ACCESSION NUMBER(S): [id number] ORDERING CLINICIAN: FLAVIO MILES FINDINGS: Multiple overlying leads are present. CARDIOMEDIASTINAL SILHOUETTE: Cardiomediastinal silhouette is stable in size and configuration. LUNGS: No consolidation, pleural effusion or pneumothorax. ABDOMEN: No remarkable upper abdominal findings. BONES: Multilevel degenerative changes of the spine. Bilateral shoulder osteoarthrosis. Impression: No acute cardiopulmonary process. MACRO: None Signed by: Vlad Araya 10/10/2023 2:11 AM Dictation workstation: [id number] Physical Exam General Appearance: AAO x 3, [...] pain End of Session Communication: Bedside nurse, Support Assistant End of Session Patient Position: Bed, 3 [...] setting. pt needs extra time Outcome Measures: [facility] Basic Mobility Turning from your back to [...] Static Sitting-Level of Assistance: Close supervision Outcome Measures:[facility] Daily Activity Putting on and taking off [...] as patient's WBC count is monitored. [facility]. Per medical team, patient has been resisting idea of SNF. PT/OT have yet to see patient today. Water Truck Driver attempted to meet with patient at bedside to review discharge plan. Patient very engaged with phone conversation. SW waited for a few moments and then offered to return later. Patient agreed. - 1115: Patient now working with PT/OT. SW to return. - 1530: Per PT/OT, patient's current AMPAC scores are 9/13; More appropriate for care in a facilityrather than returning home. SW to meet with patient to discuss same. If patient is agreeable to SNF, SW/DSC will need to send additional referrals via CarePort. Plan for patient TBD: SNF if patient will agree to same, pending acceptance, insurance auth, vs. Return home with family support and possible Home Care. Care Transitions to follow and assist. ANGELICA Deras * Ru Mills, DO - 10/12/2023 10:10 AM EDT Daryn hSah is a 77 y.o. female on day [...] expects to be discharged to: Home with [facility] vs SNF Spoke to ACCOUNT AUDITOR. Pt has 2 sons. The son that is the main caregiver is hospitalized [facility]. Other son is in [place] for a wedding. Pt is functioning at [...] accept (no beds). PT has been to [facility] and wont go back. P used to workat [employer] and does not want to go there. Pt requests referral be made to [facility]. Unsure when son in hospital will be released. Anticipates son in [place] will return home Sunday/Sunday depending on flughts. I have not told him that I am sick. I don't want to ruin or cut short his vacation. Plan- TBD home with or without hhc vs SNF pending acceptance and precert. CT will follow. * Love Maria Luisa Gibbs, DIRECTOR CHEMISTRY-GLOVE BOARDER - 10/11/2023 10:15 AM EDT Daryn Shah [...] scan of the abdomen 01/05/2020 ACCESSION NUMBER(S): [id number] ORDERING CLINICIAN: FLAVIO MILES TECHNIQUE: Axial noncontrast [...] Normal caliber. GALLBLADDER: Status post cholecystectomy. PANCREAS: Vrik-pe-qwwsovgm fatty atrophy of the pancreas. SPLEEN: Splenomegaly [...] Vlad Araya 10/10/2023 3:17 AM Dictation workstation: [id number] XR chest 1 view Narrative: Interpreted By: Vlad Araya, STUDY: XR CHEST 1 VIEW; 10/10/2023 2:03 am INDICATION: Signs/Symptoms:weakness. COMPARISON: Chest x-ray 09/08/2022 ACCESSION NUMBER(S): [id number] ORDERING CLINICIAN: FLAVIO MILES FINDINGS: Multiple overlying leads are present. CARDIOMEDIASTINAL SILHOUETTE: Cardiomediastinal silhouette is stable in size and configuration. LUNGS: No consolidation, pleural effusion or pneumothorax. ABDOMEN: No remarkable upper abdominal findings. BONES: Multilevel degenerative changes of the spine. Bilateral shoulder osteoarthrosis. Impression: No acute cardiopulmonary process. MACRO: None Signed by: Vlad Araya 10/10/2023 2:11 AM Dictation workstation: [id number] Physical Exam General Appearance: AAO x 3, [...] facility. -PT OT, patient will need placement snf facility. #4 chronic atrial fibrillation - Initial [...] Xarelto. Discharge Disposition: awaiting placement at SNF [facility] * Cleo Nj RN - 10/10/2023 1:21 [...] services Type of Post Acute Facility Services [facility] Type of Home Care Services Home OT;Home PT;Home nursing visits Patient expects to be discharged to: Home with [facility] new vs SNF Does the patient need [...] No Patient Choice Provider Choice list and [facility] website (https://medicare.gov/care-compare#search) for post-acute Quality and Resource Measure Data were provided and reviewed with: Patient REMOTE COVERAGE- Attempt to reach pt several times, reached out to nurse for assistance in same. Ptreturned TCC call from room phone, role of TCC explained. Demographics confirmed. PAP- with last visit 08/27 and next visit in December (per pt) Pharmacy is either [facility] or [facility]- takes meds as prescribed, able to afford and obtain. Non insulin dependent DM II checking sugar a couple times a week. Pt lives with son, is either wheelchair or bedbound, has not walked in several years. Has and uses power chair, wheelchair, trapeze bar. Per care rounds pt tearful on talk of SNF dueto bad experience at [facility]. Discussed same with pt who states, Not [facility]. I would maybe go to a [facility] one but would have to talk to [...] Time Calculation Start Time: 944 Stop Time: 100 Time Calculation (min): 19 min Assessment/Plan Skilled [...] pain End of Session Communication: Bedside nurse, Support Assistant End of Session Patient Position: Bed, 3 [...] Prior Function Per Pt/Caregiver Report Level of [place]: Independent with ADLs and functional transfers Receives [...] she will try again tomorrow) Outcome Measures: [facility] Basic Mobility Turning from your back to [...] Education Documentation Safety with mobility; * Yennifer Gilbert, OT - 10/10/2023 11:17 AM EDT Occupational [...] Fair End of Session Communication: Bedside nurse, Support Assistant End of Session Patient Position: Bed, 3 [...] bed and trapeze Prior Function: Level of [place]: Independent with ADLs and functional transfers Receives [...] Strength: Strength Comments: BUE 4-/5 Outcome Measures: [facility] Daily Activity Putting on and taking off [...] 10/10/23 Expected End: 10/24/23 documented in this [facility] Work Phone: 1(445) 884-825107-08-2024 Hospital course Narrative* Gunjan Glass Carlos Mhor, DIRECTOR CHEMISTRY-GLOVE BOARDER - 10/15/2023 9:08 AM EDT Discharge Diagnosis [...] Status Extra Urine Draper Tube Collected (10/10/23 7438) Urinalysis with Reflex Culture and Microscopic In [...] Center 12/18/2023 1:00 PM Huan Mcdaniel MD [id number] [facility] 07/18/2024 1:00 PM MACARENA Natarajan, DNP [id number] [facility] Etienne documented in this [facility] Work Phone: 1(761) 370-949907-07-2024 Plan of care note* Care Plan - [...] plan/prevention/treatment measures Outcome: Progressing Flowsheets (Taken 10/14/2023 1011) Participates in plan/prevention/treatment measures: Increase activity/out of bed for meals Goal: Prevent/minimize sheer/friction injuries Outcome: Progressing Flowsheets (Taken 10/14/2023 1011) Prevent/minimize sheer/friction injuries: Use pull sheet Goal: Promote/optimize nutrition Outcome: Progressing Flowsheets (Taken 10/14/2023 1011) Promote/optimize nutrition: Consume > 50% meals/supplements Goal: Prevent/manage excess moisture Outcome: Progressing Flowsheets (Taken 10/14/2023 1011) Prevent/manage excess moisture: Moisturize dry skin Goal: Promote skin healing Outcome: Progressing Flowsheets (Taken 10/14/2023 1011) Promote skin healing: Turn/reposition every 2 hours/use [...] Recommendations to address these barriers include . [facility]07-06-2024 Plan of care note* Care Plan [...] Recommendations to address these barriers include . [facility] Work Phone: 1(353) 360-930407-05-2024 Plan of care note* Care Plan - [...] Pain less than 3/10 through this shift [facility]07-05-2024 Nurse Note* Yennifer Gregg RN - 10/12/2023 6:34 PM EDT 10/11/23 am to 10/12/23 pm 963 ml intake only. Pt is declining meals. [facility] Work Phone: 1([phone]) 647-355807-05-2024 Plan of care note* Care Plan - [...] by end of the shift Outcome: Progressing [facility] Work Phone: [phone]) [phone] Plan of care note* Care Plan - [...] Outcome: Progressing Goal: Promote/optimize nutrition Outcome: Progressing [facility] Work Phone: 1([phone]) 597-843507-04-2024 Plan of care note* Care Plan - Yennifer Gregg RN - 10/11/2023 3:08 PM EDT The patient's goals for the shift include The clinical goals for the shift include remain comfortable, use call light for any needs through this shift. [facility] Work Phone: 1(480) 380-810907-04-2024 Consult note* Ru Mills, - 10/11/2023 11:13 AM EDTAssociated Order(s): IP [...] 75 mL/hr, Last Rate: 75 mL/hr (10/11/23 9713) PRN medications PRN medications: acetaminophen, albuterol, baclofen, [...] consult Principal Problem: Hyponatremia Ru Mills DO [facility] Work Phone: 1([phone]) 319-181207-04-2024 Consult note* Ru Mills DO - 10/11/2023 [...] Principal Problem: Hyponatremia Ru Mills DO * Laurent Martínez RN - 10/10/2023 12:14 PM EDT [...] Dressing Xeroform;Foam 10/10/23 1214 Dressing Changed Changed 10/10/234 Dressing Status Removed;Old drainage 10/10/23 1214 Wound [...] with questions or changes in patient condition. Laurent Martínez RN Wound /Diabetic Education [phone] Laurent Martínez RN 10/10/2023 12:45 PM * Yennifer [...] help prepare meals, has groceries delivered from [facility]. Does not like meat - cheese and [...] (kCal): 2100 kCal Method for Estimating Needs: [place] Jeor = 5030-8970 kcal Total Protein Estimated Needs (g): 100 [...] Yennifer Harper RDN, LD documented in this [facility] Work Phone: 1(521) 774-248007-04-2024 Plan of care note* Care Plan - [...] goals for the shift include remain comortable [facility] Work Phone: 1(505) 586-786207-03-2024 Consult note* Laurent Martínez RN - 10/10/2023 12:14 PM EDT [...] with questions or changes in patient condition. Laurent Martínez loading machine adjuster /Diabetic Education [phone] Laurent Martínez RN 10/10/2023 12:45 PM [facility]07-03-2024 Consult note* Yennifer Harper RDN, LD - [...] help prepare meals, has groceries delivered from [facility] [employer]. Does not like meat - cheese and [...] 11/13/19 : (!) 139 kg (307 lb) 07/23/20 : (!) 139 kg (307 lb) 05/20/19 [...] (kCal): 2100 kCal Method for Estimating Needs: [place] Jeor = 9064-0770 kcal Total Protein Estimated Needs (g): 100 [...] (min): 30 minutes Yennifer Harper RDN, LD [facility] Work Phone: 1(535) 816-666607-03-2024 Plan of care note* Care Plan - [...] excess moisture Outcome: Progressing Flowsheets (Taken 10/10/2023 112) Prevent/manage excess moisture: Monitor for/manage infection if present Goal: Prevent/minimize sheer/friction injuries Outcome: Progressing Flowsheets (Taken 10/10/2023 112) Prevent/minimize sheer/friction injuries: HOB 30 degrees or [...] include to remain comfortable throughout the shift. [facility] Work Phone: 1([phone]) 380-828507-03-2024 Note* Treatment Plan - MACARENA Gamboa - 10/10/2023 [...] coherent and conversant, no focal motor deficits. [facility] Work Phone: 1([phone]) [phone] History and physical note* Ghasem E Ashelfah, MD - 10/10/2023 4:27 AM EDT HISTORY AND PHYSICAL EXAMINATION Daryn Shah 1945 77 y.o. [id number] 10/10/23 4:27 AM CHIEF COMPLAINT: Generalized weakness. HISTORY OF PRESENT ILLNESS: This is a 77 years old female patient with past medical history as mentioned below [facility] because of not feeling well, weakness [...] Date/Time CT abdomen pelvis wo IV contrast [[id number]] Collected: 10/10/23317 Order Status: Completed Updated: 10/10/23317 Narrative: Interpreted By: Vlad Araya, STUDY: CT ABDOMEN PELVIS WO IV CONTRAST; 10/10/2023 2:45 am INDICATION: Signs/Symptoms:back pain w/o injury. COMPARISON: CT scan of the abdomen 01/05/2020 ACCESSION NUMBER(S): [id number] ORDERING CLINICIAN: FLAVIO MILES TECHNIQUE: Axial noncontrast CT images of the abdomen and pelvis with coronal and sagittal reconstructed images. FINDINGS: LOWER CHEST: Trace right pleural effusion. Bibasilar atelectasis and or scarring. 2 nodules in the right middle lobe measuring up to 10 mm are stable from CT scan of 2020. Mild elevation of the left hemidiaphragm. Coronary artery calcifications noted. ABDOMEN: Lack of intravenous contrast limits evaluation of vessels and solid organs. LIVER: Within normal limits. BILE DUCTS: Normal caliber. GALLBLADDER: Status post cholecystectomy. PANCREAS: Znvt-ss-fkyuoegu fatty atrophy of the pancreas. SPLEEN: Splenomegaly [...] Vlad Araya 10/10/2023 3:17 AM Dictation workstation: [id number] XR chest 1 view [[id number]] Collected: 10/10/23211 Order Status: Completed Updated: 10/10/23211 Narrative: Interpreted By: Vlad Araya, STUDY: XR CHEST 1 VIEW; 10/10/2023 2:03 am INDICATION: Signs/Symptoms:weakness. COMPARISON: Chest x-ray 09/08/2022 ACCESSION NUMBER(S): [id number] ORDERING CLINICIAN: FLAVIO MILES FINDINGS: Multiple overlying leads are present. CARDIOMEDIASTINAL SILHOUETTE: Cardiomediastinal silhouette is stable in size and configuration. LUNGS: No consolidation, pleural effusion or pneumothorax. ABDOMEN: No remarkable upper abdominal findings. BONES: Multilevel degenerative changes of the spine. Bilateral shoulder osteoarthrosis. Impression: No acute cardiopulmonary process. MACRO: None Signed by: Vlad Araya 10/10/2023 2:11 AM Dictation workstation: [id number] Assessment/Plan Principal Problem: Hyponatremia #1 hyponatremia: In [...] PT OT, patient may need placement to snf facility. #4 chronic atrial fibrillation: Initial heart [...] resuscitated. Renetta Romero MD 10/10/23 6:44 AM [facility] Work Phone: [phone]) [phone] History and physical note* Renetta Romero MD - 10/10/2023 4:27 AM EDT HISTORY AND PHYSICAL EXAMINATION Daryn Shah 1945 77 y.o. [id number] 10/10/23 4:27 AM CHIEF COMPLAINT: Generalized weakness. [...] Date/Time CT abdomen pelvis wo IV contrast [[id number]] Collected: 10/10/23317 Order Status: Completed Updated: 10/10/23317 Narrative: Interpreted By: Vlad Araya, STUDY: CT ABDOMEN PELVIS WO IV CONTRAST; 10/10/2023 2:45 am INDICATION: Signs/Symptoms:back pain w/o injury. COMPARISON: CT scan of the abdomen 01/05/2020 ACCESSION NUMBER(S): [id number] ORDERING CLINICIAN: FLAVIO MILES TECHNIQUE: Axial noncontrast [...] Normal caliber. GALLBLADDER: Status post cholecystectomy. PANCREAS: Mpcb-zj-zxyvfhap fatty atrophy of the pancreas. SPLEEN: Splenomegaly [...] Vlad Araya 10/10/2023 3:17 AM Dictation workstation: [id number] XR chest 1 view [[id number]] Collected: 10/10/23211 Order Status: Completed Updated: 10/10/23211 Narrative: Interpreted By: Vlad Araya, STUDY: XR CHEST 1 VIEW; 10/10/2023 2:03 am INDICATION: Signs/Symptoms:weakness. COMPARISON: Chest x-ray 09/08/2022 ACCESSION NUMBER(S): [id number] ORDERING CLINICIAN: FLAVIO MILES FINDINGS: Multiple overlying leads are present. CARDIOMEDIASTINAL SILHOUETTE: Cardiomediastinal silhouette is stable in size and configuration. LUNGS: No consolidation, pleural effusion or pneumothorax. ABDOMEN: No remarkable upper abdominal findings. BONES: Multilevel degenerative changes of the spine. Bilateral shoulder osteoarthrosis. Impression: No acute cardiopulmonary process. MACRO: None Signed by: Vlad Araya 10/10/2023 2:11 AM Dictation workstation: [id number] Assessment/Plan Principal Problem: Hyponatremia #1 hyponatremia: In [...] PT OT, patient may need placement to snf facility. #4 chronic atrial fibrillation: Initial heart [...] MD 10/10/23 6:44 AM documented in this [facility] Work Phone: [phone] Emergency department Note* Flavio Demetrio Miles, - 10/10/2023 1:14 AM EDT HPI [...] History provided by: EMS personnel and patient laborer petroleum refinery used: No No data recorded Patient History [...] Miles DO 10/10/23 0402 documented in this [facility] Work Phone: [phone]) [phone] Physician Emergency department Note* Flavio Miles DO [...] History provided by: EMS personnel and patient laborer petroleum refinery used: No No data recorded Patient History [...] Procedure Procedures Flavio Miles DO 10/10/23 0402 [facility] Work Phone: [phone]) [phone] History of Present illness Narrative* Jojo Yuo MA - 08/20/2023 3:30 PM EDT z [...] Care - Established; Future documented in this [facility] Work Phone: [phone]) [phone] History of Present illness Narrative* Dominique Shah, BryannaD - 08/02/2023 9:00 AM EDT Pharmacist Clinic: Anticoagulation Management Daryn Shah was referred to the Clinical Pharmacy Team for their anticoagulation management. Referring Provider: Marleen Sigala APRN-CN* PHARMACY ASSESSMENT Allergies Reviewed? Yes Home Pharmacy Reviewed? Yes, describe: fills w/ mail order, [facility] Affordability/Accessibility: cost is a barrier, patient will be screened for [facility] PAP, wheelchair bound and has trouble w/ transportation, patient's son helps bean picker machine operator medications if needed, son lives with her [...] cholesterol range is 130 to 320 mg/dL [id number] Score Appropriate? Yes - dx of afib BFO1PH1-PECM Score: 5 Age > 75 (+2) Sex Female (+1) CHF hx No (+0) Hypertension hx Yes (+1) Stroke/TIA/thromboembolism hx No (+0) Vascular disease hx (prior CO, peripheral artery disease, aortic plaque) No (+0) [...] all patient questions and concerns - Discussed [facility] PAP and benefits to patient if needed in future - Counseled patient to take Xarelto with food RECOMMENDATIONS/PLAN Anticoagulation - continue current treatment regimen.. Xarelto 20 mg daily Affordability/Accessibility - Screen for [employer] ([facility]) Patient Assistance Program (PAP). Patient is expected to be eligible for this program. Patient declines screening for [facility] PAP at this time. Patient reports [...] and clinical pharmacy team. documented in this [facility] Work Phone: [phone]) [phone] History of Present illness Narrative* Marleen Sigala APRN-PALOMA, DNP - 07/20/2023 2:30 PM EDT Images [...] this date Cardiovascular hx: Atrial fibrillation, persistent: -[id number] Score of 5; currently on Xarelto 20mg; [...] 0.4 0.4 CBC: Recent Labs 05/21/23 1533 03/06/23 1118 10/24/22 1200 09/14/22 0454 09/13/22 0554 WBC 10.2 12.2* 10.9 11.6* 11.7* HGB 11.0* 9.3* 11.2* 8.1* 8.1* HCT 36.6 32.6* 38.7 28.4* 28.3* PLT 261 310 324 310 290 MCV 83 77* 77* 71* 70* COAG: Recent Labs 09/10/22 0508 09/08/22 1302 INR 1.4* 5.4* ABO: No results for input(s): ABO in the last 41300 hours. HEME/ENDO: Recent Labs 05/21/23 1533 03/06/23 [...] (from the past 4464 hour(s)). Echocardiogram: Echocardiogram [place] [id number] [id number], TRANSTHORACIC ECHOCARDIOGRAM REPORT Patient Name: DARYN Glass ALYSSA Reading Physician: [id number] Norman Valdivia MD Study Date: 09/11/2022 Referring ANGELIQUE CLARKE Physician: MRN/PID: [id number] PCP: Accession/Order#: [id number] Department [address] Location: Date of : 1945 Fellow: Gender: F Nurse: Admit Date: 09/08/2022 Process Control Engineer: BJ Gates RVT Admission Status: Inpatient - Additional Staff: Routine Height: 167.00 cm CC Report to: Weight: 116.00 kg Study Type: Echocardiogram BSA: 2.21 m2 Blood Pressure: 111 /70 mmHg Diagnosis/ICD: I48.0-Paroxysmal atrial fibrillation Indication: AFib Procedure/CPT: Echo Complete w Full Doppler-[id number] Patient History: Pertinent History: Previous echo 02-14-2019. [...] LA Area A2C: 26.8 cm2 LA [place] A4C: 6.8 cm LA [place] A2C: 5.7 cm LA Volume Index: 44.3 [...] 1.1 m/s (0.6-0.9m/s) PV Max P.5 mmHg [id number] Norman Valdivia MD Electronically signed on 09/11/2022 at 11:54:26 AM Stress Testing: No results found for this or any previous visit from the past 1824 days. Cardiac Catheterization: No results found for this or any previous visit from the past 1824 days. No results found for this or [...] - Stable; continue atenolol 100 mg daily -[id number] Score of 5; currently on Xarelto 20mg; [...] the patient's care. Marleen Sigala DNP, MAYCO, RUG FRAME MOUNTER-C Division of Cardiovascular Medicine [facility] documented in this [facility] Work Phone: 1([phone]) [phone] History of Present illness Narrative* Huan Mcdaniel [...] Good job with that documented in this [facility] Work Phone: [phone] Emergency department Note* Flavio Miles, DO - [...] be further evaluated. 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 History provided by: Patient laborer petroleum refinery used: No [place] Coma Scale Score: 15 [...] ED Course & MDM Diagnoses as of 06/10/23 1851 Contusion of right foot, initial encounter Hematoma [...] if worse. Procedure Procedures Flavio Miles DO 06/10/23 017 [facility] Work Phone: [phone] History of Present illness Narrative* Huan Mcdaniel [...] use of insulin (CMS/HCC) documented in this [facility] Work Phone: [phone] History of Present illness Narrative* Huan Mcdaniel [...] this date, 03/13/23 for a telehealth visit. [facility] No longer has [facility]. She is not able to get in here this time again Her armored car driver lost his pickering to the [employer] van. She was all ready to go today. Could not use wheelchair van. That should be better nexttime. Glaucoma and cataracts - noted to have high pressure but not able to get back to treat. Has been referred to [facility] for a cataract and this in [...] palliative care. Has had PT, OT and INDUSTRIAL ENGINEERING TECHNICIAN but none now. Activity- she gets in [...] at bedside and uses bedpan. Goes to [facility] and slide over. Has a walkerbut uses [...] Morbid obesity with BMI of 40.0-44.9, adult ([facility]) Diabetes 1.5, managed as type 2 ([facility]) - metFORMIN (Glucophage) 500 mg tablet; Take [...] cataract of both eyes documented in this [facility] Work Phone: [phone] History of Present illness Narrative* Huan Mcdaniel [...] palliative care. Has had PT, OT and INDUSTRIAL ENGINEERING TECHNICIAN but none now. Activity- she gets in [...] and uses bedpan. Plans to go to [facility] and slide over. Has awalker but uses [...] Visit Anxiety - Primary Asthma Atrial fibrillation ([facility]/HCC) Benign essential hypertension Depression, major, single episode, moderate ([facility]) Diabetes mellitus type 2, controlled ([facility]) Diarrhea Generalized muscle weakness Hyperlipidemia Lumbar facet arthropathy Lymphedema of leg Morbid obesity with BMI of 40.0-44.9, adult ([facility]) Neurodermatitis Personal history of colonic polyps Primary osteoarthritis of both knees Vitamin D deficiency documented in this [facility] Work Phone: [phone] History of Present illness Narrative* Huan Mcdaniel MD - 10/13/2022 2:00 PM EDT Subjective Patient ID: Daryn Shah is a 76 y.o. female who presents for Follow-up (Was in hospital for uti, developed C. Diff and was at [facility]./Discuss ordering labs). Virtual or Telephone Consent A telephone visit (audio only) between the patient (at the originating site) and the provider (at the distant site) was utilized to provide this telehealth service. Verbal consent was requested and obtained from Daryn Shah on this date, 10/13/22 for a telehealth visit. [facility] Hospital and SNF follow up. Admit to [facility]/08-11/29. Then at [facility] for 2- 3 weeks. She says that [...] a blood pressure of 115/55 mmHg, heart dqaw724 beatsa minute, respiratory 20/min saturating 92% room [...] Is accepted 10/13/22 She was transferred to [facility] and developed diarrhea about 2 days after [...] get around BP today 113/56 Weight at [facility] was 248. Review of Systems Objective There were no vitals taken for this visit. Physical Exam Audio only so no exam. Oriented and able to communicate will with no distress. Assessment/Plan Problem List Items Addressed This Visit Asthma Atrial fibrillation (CMS/[facility]) - Primary Depression, major, single episode, moderate (CMS/HCC) Diabetes mellitus type 2, controlled (CMS/HCC) Relevant Orders Comprehensive Metabolic Panel Iron deficiency [...] HHC next week and needs that for Usp. PT probably not going to be helpful. She is to start monitoring BS but has been good. documented in this [facility] Work Phone: [phone]) [phone] NoteSend Summary: Discharge Summary Providers: Provider RoleProvider [...] Intermediate Care Facility Vital Signs: T PRBPMAPSpO2 Value36.05635734/6596% Date/Time09/14 7:5309/14 7:5309/14 7:5309/14 7:5309/14 7:53 Range(36.3C - 36.8C ) (59 - 81 ) (16 - 20 ) (95 - 131 )/ (64 - 82 ) (96% - 98% ) Date: Weight/Scale Type:Height: 08-Sep-2022 19:52530.5 kg / ofx787.5 cm Physical Exam: Constitutional: Well developed, obese [...] Pending: None Radiology Results - Pending: None Gilchrist Jovel (more content not included)...[facility]06-03-2023 NoteClinical Event: Clinical Event Note: TopicClinic in [...] Note Last Updated: 09-Sep-2022 21:16 by Chidi Torres)[facility]06-02-2023 NoteHistory of Present Illness: Admission Reason: Bedbound, [...] a day. Objective: Objective Information: T PRBPMAPSpO2 Value37.9260522/7098% Date/Time09/08 16:/2 17:306/2 17:306/2 17:306/2 17:30 Range(37.4C - 39.1C ) (73 - [...] Medications 1. Acetaminophen: 65 (more content not included)...[facility] 12-02-2021 Chief complaint Narrative - Reported* An interactive audio and video telecommunication system which permits real time communications between the patient (at the originating site) and provider (at the distant site) was utilized to providethis telehealth service. * Verbal consent was requested and obtained from DARYN SHAH on this date, 12/02/2021 03:30 PM , for a telehealth visit. * pretty [facility] Work Phone: [phone] Chief complaint Narrative - Reported* An interactive audio and video telecommunication system which permits real time communications between the patient (at the originating site) and provider (at the distant site) was utilized to providethis telehealth service. * Verbal consent was requested and obtained from DARYN SHAH on this date, 09/01/2021 11:30 AM , for a telehealth visit. * [facility] certification F2F [facility] Work Phone: [phone]) [phone] History of Present illness Narrative* Asthma - [...] no longer. Has had PT, OT and INDUSTRIAL ENGINEERING TECHNICIAN. Done with all of that. She is [...] expected for medication profile * CSA 10/30/19 -[facility] Work Phone: [phone]) [phone] History of Present illness Narrative* Asthma - [...] no longer. Has had PT, OT and INDUSTRIAL ENGINEERING TECHNICIAN. Done with all of that. She is [...] expected for medication profile * CSA 10/30/19 [facility] Work Phone: [phone] History of Present illness Narrative* Finally able [...] no longer. Has had PT, OT and INDUSTRIAL ENGINEERING TECHNICIAN. Done with all of that. She is [...] expected for medication profile * CSA 10/30/19 -[facility] Work Phone: [phone]) 487-471007-30-2021 Chief complaint Narrative - Reported* An interactive audio and video telecommunication system which permits real time communications between the patient (at the originating site) and provider (at the distant site) was utilized to providethis telehealth service. * Verbal consent was requested and obtained from DAYRN SHAH on this date, 11/05/2020 01:30 PM , for a telehealth visit. * Electric Wheelchair evaluation -[facility] Work Phone: [phone]) [phone] History of Present illness Narrative* 75-year-old female [...] every day and has been largely controlled. TM-Rcshanemcq-Ltkcgnw [address] Work Phone: [phone] History of Present illness Narrative* 76-year-old female [...] * Problem #2 hypertension * -Controlled today CM-Dbjomqgrbv-Hizunbw [address] Work Phone: Consult note Author Jones Greer [facility] Note Date/Time July 01, 2024 2:0 7pm [facility] Medical Records Department [address] [place] [address] Anesthesia Postop Eval I 07/01/24 1406 MR#: [id number] Acct: [id number] Name: DARYN SHAH Rep #:[id number] 1 : 1945 78 From: Jones Greer PCP: April Mullen MD Status:[facility] Y Race: C Location: [place] [address] Anesthesia: Postop Eval I Current Vital Signs [...] by Jones Greer > Date _ Jones Acevedo Signature: Date CC: ~ Signed [facility] Work Phone: Consult note Author Jurgen Rosario [facility] Note Date/Time October 28, 2024 11:3 4am [facility] Medical Records Department [address] [place] [address] Pre-Anesthesia Evaluation 10/28/24 1130 MR#: [id number] Acct: [id number] Name: DARYN SHAH Rep #:[id number] 0 : 1945 78 From: Jurgen Licea PCP: Arpil Mullen MD Status:REG SDC Y Race: C Location: [place] [address] ASA Classification* ASA Classification ASA Classification: 4 (Low EF with severe Ao stenosis, being examined next monthfor TAVR. Denies CP.) Assessment & Plan Anesthesia* Anesthesia Assessment Anesthesia [...] risk assessments. Anesthesia Type Anesthesia Type: MAC History Source History Obtained from:: Patient Anesthesia Focused Assessment* Temperature: 98.6 F Pulse Rate: 66 Blood Pressure: 105/92 Respiratory Rate: 18 Pulse Ox: 100 Airway Assessment Mouth opens: >3 cm Mallampati Score: II Teeth Condition: Dentures Labs Anesthesia Preop lab: CBC WBC 7.6 K/mm3 (4.4-11.0) 09/16/24 07:40 09/16/24 RBC 3.56 M/mm3 (4.2-5.4) L 09/16/24 07:40 09/16/24 Hgb 9.4 g/dL (12.0-15.0) L 09/16/24 07:40 09/16/24 Hct 30.9 % (37-47) L 09/16/24 07:40 09/16/24 Plt Count 203 K/mm3 (150-450) 09/16/24 07:40 09/16/24 CHEMISTRY Potassium 4.3 mmol/L (3.3-5.1) 09/16/24 07:40 09/16/24 Sodium 138 mmol/L (133-145) 09/16/24 07:40 09/16/24 Magnesium 1.7 mg/dL (1.6-2.6) 01/02/24 03:30 01/02/24 Phosphorus 3.4 mg/dL (2.5-4.9) 01/01/24 04:42 01/01/24 BUN 28 mg/dL (4-19) H 09/16/24 07:40 09/16/24 Creatinine 1.19 mg/dL (0.70-1.20) 09/16/24 07:40 09/16/24 Glucose 98 mg/dL (70-99) 09/16/24 07:40 09/16/24 POC Glucose 62 mg/dL (74-106) L 07/01/24 11:42 07/01/24 TSH 1.650 uIU/mL (0.358-3.740) 01/01/24 04:42 12/09 07/31 COAG PT 20.9 SECONDS (11.7-14.9) H 12/31/23 17:57 12/09 06/30 Pre-Assessment Diagnosis/Proposed Procedure Planned Operative Procedure(s): EGD Anesthesia History Anesthesia History - gut dropper: Anesthesia History - gut dropper Hx Hospitalization Yes: [facility] 10/21/24 08:35 Any Problems With Anesthesia No 10/21/24 08:35 Cholinesterase deficiency No 10/21/24 08:35 You/Your Family Experience No 10/21/24 08:35 fever (hyperthermia) with Relationship Recent Exposure to Contagious No 10/28/24 10:53 Disease Does patient have nerve No 10/21/24 08:35 stimulator Patient instructed to have device shut off --Does patient have Pacemaker No 10/28/24 10:53 or ICD? When Was Last Pacemaker Check QUESTION #4 FULL TEXT: You/Your Family Experience fever (hyperthermia) with Anesthesia Last Oral Intake Last Oral intake: Last Oral Intake NPO since 16:00 10/28/24 10:53 Meds taken in AM with sips of No 10/28/24 10:53 water? Meds patient instructed to take am of surgery PONV PONV - gut dropper: PONV - gut dropper Female Yes 10/21/24 08:35 HX of Motion Sickness No 10/21/24 08:35 HX of N/V After Surgery No 10/21/24 08:35 Non-Smoker Yes 10/21/24 08:35 Duration of Surgery greater No 10/21/24 08:35 than 60 minutes Number of Risk Factors 2 10/21/24 08:35 PONV Score Moderate Risk 10/21/24 08:35 Height & Weight Height & Weight: Anesthesia: Height & Weight Height 5 ft 6 in 10/28/24 10:53 Weight: 94.347 kg 10/28/24 10:53 Body Mass Index (BMI) 33.5 10/28/24 10:53 Respiratory Assessment Respiratory Assessment - gut dropper: Respiratory Tract Infection Hx - gut dropper Hx Respiratory Tract Infection No 10/21/24 08:35 STOP Sleep Apnea STOP Sleep Apnea - gut dropper: STOP Sleep Apnea - gut dropper Hx Hypertension Yes 10/21/24 08:35 Hx Sleep Apnea No 10/21/24 08:35 CPAP BIPAP Do you snore loudly (louder No 10/21/24 08:35 than talking or can be heard Do you often feel tired/ No 10/21/24 08:35 fatigued/ sleepy during daytime? Has anyone observed you stop No 10/21/24 08:35 breathing during sleep? STOP Results Negative 10/21/24 08:35 QUESTION #5 FULL TEXT : Do you snore loudly (louder than talking or can be heard through closed doors)? 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 Specify any problems Hx of Preganancy in last 3 No 10/21/24 08:35 Months Nurse Filling Out Transfusion [facility] 10/21/24 08:35 & Questions: Date: 10/21/24 10/21/24 08:35 Time: 08:37 10/21/24 08:35 Patient unable to answer at this time (ie. confused, unrespo /Reproduction History /Reproductive History - gut dropper: /Reproductive Hx- gut dropper Hx Now No 10/21/24 08:35 Gestational Age (in weeks): EDC: Hx Hx Para Hx Section SAB No 10/21/24 08:35 Active Medications Active Medications: Current Medications Generic Name Dose Route Start Last Admin Trade Name Freq PRN Reason Stop Dose Admin Lactated Ringer's 1,000 mls @ 15 mls/hr 10/28/24 10:45 10/28/24 11:00 IV 15 mls/hr .Q48H SEVEN Administration PFSH Medical History (Updated 10/21/24 @ 08:51 by Amirah Cooper) Post-menopausal History of ulceration Gastric reflux History of stress test History of irregular heartbeat Aortic stenosis Lives in shelter Wears glasses Wears partial dentures Marijuana use [...] History subcutaneous pen (Humalog KwikPen (U-100) Insulin) nystatin 100,000 unit/gram topical 1 applic topical BI D PRN skin 12/31/23 Unknown History powder irritation potassium chloride 10 mEq 20 meq PO DAILY 12/31/23 Unk nown History capsule,extended release melatonin 3 mg tablet 6 mg (2 x 3 mg) PO QHS #0 ta bs 01/08/24 Unknown Rx buspirone 5 mg tablet 5 mg PO BID 03/28/24 Unknown History dapagliflozin propanediol 5 mg 5 mg PO DAILY 03/28/24 Unknown History tablet (Farxiga) ferrous sulfate 325 mg (65 mg 325 [...] History aerosol inhaler of breath or wheezing guaifenesin 400 mg tablet 400 mg PO Q4H PRN cough 06/08 08/01 Unknown History insulin glargine 100 unit/mL (3 8 unit subcut DAILY 07/01/24 History mL) subcutaneous pen (Lantus Solostar U-100 Insulin) polyethylene glycol 3350 17 17 g PO QODAY 06/30/24 Unk nown History gram/dose oral powder (Miralax) apixaban 5 mg tablet (Eliquis) 5 mg PO BID #90 tabs 10/23/24 Rx carvedilol 3.125 mg tablet 3.125 mg PO BID #180 tabs 0 07/31/24 Unknown Rx docusate sodium 100 mg capsule 100 mg PO BID 10/09/24 Unknown History venlafaxine 150 mg 150 mg PO QDAY 10/09/24 Unkn own History capsule,extended release 24 hr benzonatate 100 mg capsule 100 mg PO TID PRN cough Unknown History magnesium hydroxide 400 mg/5 mL 30 ml PO DAILY PRN con stipation 10/21/24 Unknown History oral suspension (Milk of Magnesia) Allergy/AdvReac Type Severity Reaction Status Date / Time No Known Allergies Allergy Verified 10/28/24 10:53 Family History Mother Alzheimer dementia Breast cancer Heart disease Brother Cystic fibrosis Surgical History History of colonoscopy S/P laminectomy History of tubal ligation Hx of cholecystectomy H/O section Social History Smoking Status: Never smoker alcohol intake: never Review of Systems (Anesthesia) ROS Narrative System reviewed and no additional complaints, except as documented. 10/28/24 1134 <Electronically signed by Jurgen Rosario MD> Date _ Jur[facility] MD [facility] Signature: Date CC: ~ Signed [facility] Work Phone: Consult note Author Jones Greer [facility] Note Date/Time October 28, 2024 12:2 9pm [facility] Medical Records Department [address] [place] [address] Anesthesia Postop Eval I 10/28/24 1228 MR#: [id number] Acct: [id number] Name: DARYN SHAH BLANE Rep #:[id number] : 1945 78 From: Jones Greer PCP: April Mullen MD Status:REG SDC Y Race: C Location: [place] [address] Anesthesia: Postop Eval I Current Vital Signs Temperature: 97.8 F Pulse Rate: 82 Blood Pressure: 126/91 Respiratory Rate: 18 Pulse Ox: 100 Oxygen Delivery Method: Room Air Assessment Airway patent: No Spontaneous unlabored respirations: No Mental status: Asleep nausea: No Vomiting: No Anesthesia Complication: No Fluid Hydration Crystalloid volume administer (ml): 300 Total IV fluid infused: 300 Progress Note Anesthesia document: Postop Eval 1 completed: Yes 10/28/24 1229 <Electronically signed by Jones Greer > Date _ Jones Cejaignfatou Signature: Date CC: ~ Signed [facility] Work Phone: Consult note Author Jurgen Rosario [facility] Note Date/Time October 28, 2024 12:3 3pm [facility] Medical Records Department [address] [place] [address] Anesthesia Postop Eval II 10/28/24 1232 MR#: [id number] Acct: [id number] Name: DARYN SHAH BLANE Rep #:[id number] 6 : 1945 78 From: Jurgen Licea PCP: April Mullen MD Status:REG [facility] Y Race: C Location: [place] [address] Anesthesia Postop Eval I Sum Postop Eval Completion status Anesthesia document: Postop Eval 1 completed: Yes Anesthesia Postop Eval I Summary Anesthesia Postop Eval I Summary: Anesthesia Postop Eval I: Assessment Summary Airway patent No 10/28/24 12:29 [email or web address] Spontaneous unlabored No 10/28/24 12:29 [email or web address] respirations Mental status Asleep 10/28/24 12:29 [email or web address] nausea No 10/28/24 12:29 [email or web address] Vomiting No 10/28/24 12:29 [email or web address] Anesthesia Postop Eval I: Fluid Summary Crystalloid volume administer 300 10/28/24 12:29 [email or web address] (ml) Colloids volume administered ( ml) Blood Product volume administered (ml) Total IV fluid infused 300 10/28/24 12:29 [email or web address] Anesthesia Postop Eval I: Summary Notes Anesthesia Complication No 10/28/24 12:29 [email or web address] Anesthesia Complication Comment: Post-operative progress note Anesthesia: Postop Eval II Evaluation Mental status: Awake and Calm Pain Level: 0 nausea: No Vomiting: No Progress Note Post-operative progress note: patient cooperative when encouraged to deep breath. RA SPO2 99% Complications Anesthesia Complication: No 10/28/24 1233 <Electronically signed by Jurgen Rosario MD> Date _ Jurgen Rosario MD Cosigner Signature: Date CC: ~ Signed [facility] Work Phone: Evaluation note* Diagnosis Chronic atrial [...] adult (CMS/HCC) Weakness of both lower extremities Clostridium difficile enteritis documented in this encounter [facility] Work Phone: Evaluation note* Diagnosis Anxiety- [...] obesity with BMI of 40.0-44.9, adult (CMS/HCC) Neurodermatitis Lichenification and lichen simplex chronicus Personal history of colonic polyps Primary osteoarthritis of both knees Vitamin D deficiency documented in this encounter [facility] Work Phone: Evaluation note* Diagnosis Morbid obesity with BMI of 40.0-44.9, adult ([facility])- Primary Diabetes 1.5, managed as type 2 ([facility]) Anxiety Anxiety state, unspecified Benign essential hypertension Essential hypertension, benign Hyperlipidemia, unspecified hyperlipidemia type Hypokalemia Hypopotassemia Hypomagnesemia Disorders of magnesium metabolism Iron deficiency anemia secondary to inadequate dietary iron intake Vitamin D deficiency Age-related incipient cataract of both eyes documented in this encounter [facility] Work Phone: [phone] note* Diagnosis Syndrome of inappropriate secretion of antidiuretic hormone ([facility]/HCC)- Primary 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, managed as type 2 ([facility]) Anxiety Anxiety state, unspecified Venous stasis ulcer with varicose veins of lower extremity ([facility]) Chronic atrial fibrillation ([facility]) Atrial fibrillation Depression, major, single episode, moderate ([facility]) Morbid obesity with BMI of 40.0-44.9, adult ([facility]) 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, without long-term current use of insulin ([facility]) documented in this encounter [facility] Work Phone: Evaluation note* Diagnosis Contusion of right foot, initial encounter- Primary Hematoma of right foot documented in this encounter [facility] Work Phone: [phone] note* Diagnosis Hematoma of right foot- Primary Anxiety Anxiety state, unspecified documented in this encounter [facility] Work Phone: [phone] note* Diagnosis Persistent atrial fibrillation (Multi)- Primary Atrial fibrillation documented in this encounter [facility] Work Phone: [phone] note* Diagnosis Persistent atrial fibrillation (Multi) Atrial fibrillation documented in this encounter [facility] Work Phone: Evaluation note* Diagnosis Vitamin D deficiency- Primary Chronic atrial fibrillation (Multi) Atrial fibrillation Diabetes 1.5, managed as type 2 (Multi) 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) Other disorders of neurohypophysis documented in this encounter [facility] Work Phone: Evaluation note* Diagnosis Vertebral osteomyelitis (Multi)- Primary Unspecified osteomyelitis, other specified site documented in this encounter [facility] Work Phone: Evaluation note* Diagnosis S/P laminectomy- Primary Other postprocedural status documented in this encounter [facility] Work Phone: Evaluation note* Diagnosis Hyponatremia- Primary Hyposmolality and/or hyponatremia Hyponatremia Hyposmolality and/or hyponatremia Benign essential hypertension Essential hypertension, benign Iron deficiency anemia secondary to inadequate dietary iron intake Mixed hyperlipidemia documented in this encounter [facility] Work Phone: Evaluation note* Diagnosis Discitis, unspecified, thoracic region- Primary [...] or lung (Multi) documented in this encounter [facility] Work Phone: Evaluation note* Diagnosis Spondylosis with myelopathy, thoracic region- Primary documented in this encounter [facility] Work Phone: Evaluation note* Diagnosis Vertebral osteomyelitis (Multi)- Primary Unspecified osteomyelitis, other specified site Discitis, unspecified, thoracic region documented in this encounter [facility] Work Phone: History and physical note Author Jacinto Munoz [facility] Note Date/Time October 28, 2024 11:4 7am [facility] Medical Records Department [address] [place] [address] History & Physical Exam 10/28/24 1144 MR#: [id number] Acct: [id number] Name: DARYN SHAH Rep #:[id number] 1 : 1945 78 From: Jacinto Munoz DO PCP: pAril Mullen MD Status:[facility] Location: [address] HPI - General General Date of Admission: 10/28/24 Date of Service: 10/28/24 Chief Complaint: Anemia HPI Narrative DARYN SHAH, is a 78 F who presents with Chief Complaint: anemia [facility] ED 12.4.24 with low Hgb 6.9 BGI established 1.20.25 with anemia. Labs showing down trending Hgb since October 2023. Most recent Hgb 1.6.25 7.7 with FOBT+. Pt last colonoscopy in 2018 with nopolyps per pt report. Pt was on Xarelto but changed to ASA 325mg daily. Pt denies any heartburn or blood in her stool. C.diff one year ago. *Start PPI daily, scheduled for EGD and colonoscopy EGD 07.01.24 - No gross lesions in the entire esophagus. - Non-bleeding gastric ulcer with no stigmata of bleeding. Biopsied. - No gross lesions in the third portion of the duodenum. Biopsied. Colonoscopy 07.01.24 - Diverticulosis in the recto-sigmoid colon, in the sigmoid colon and in the descending colon. - One 20 mm polyp in the cecum, removed with a hot snare. Resected and retrieved. Clip was placed. 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 OV 07.31.24 Pt here today to review results of endoscopy. She has no GI complaints. She denies dark or tarry stools. She continues with pantoprazole 40 mg daily and iron. She is having a bm every 2-3 days and feels mild constipationfrom the iron. Last hgb 11.4 (4.15.25). [facility] Medical History Post-menopausal History of ulceration Gastric reflux History of stress test History of irregular heartbeat Aortic stenosis Lives in shelter Wears glasses Wears partial dentures Marijuana use [...] History subcutaneous pen (Humalog KwikPen (U-100) Insulin) nystatin 100,000 unit/gram topical 1 applic topical BI D PRN skin 12/31/23 Unknown History powder irritation potassium chloride 10 mEq 20 meq PO DAILY 12/31/23 Unk nown History capsule,extended release melatonin 3 mg tablet 6 mg (2 x 3 mg) PO QHS #0 ta bs 01/08/24 Unknown Rx buspirone 5 mg tablet 5 mg PO BID 03/28/24 Unknown History dapagliflozin propanediol 5 mg 5 mg PO DAILY 03/28/24 Unknown History tablet (Farxiga) ferrous sulfate 325 mg (65 mg 325 [...] History aerosol inhaler of breath or wheezing guaifenesin 400 mg tablet 400 mg PO Q4H PRN cough 06/08 08/01 Unknown History insulin glargine 100 unit/mL (3 8 unit subcut DAILY 07/01/24 History mL) subcutaneous pen (Lantus Solostar U-100 Insulin) polyethylene glycol 3350 17 17 g PO QODAY 06/30/24 Unk nown History gram/dose oral powder (Miralax) apixaban 5 mg tablet (Eliquis) 5 mg PO BID #90 tabs 10/23/24 Rx carvedilol 3.125 mg tablet 3.125 mg PO BID #180 tabs 0 07/31/24 Unknown Rx docusate sodium 100 mg capsule 100 mg PO BID 10/09/24 Unknown History venlafaxine 150 mg 150 mg PO QDAY 10/09/24 Unkn own History capsule,extended release 24 hr benzonatate 100 mg capsule 100 mg PO TID PRN cough Unknown History magnesium hydroxide 400 mg/5 mL 30 ml PO DAILY PRN con stipation 10/21/24 Unknown History oral suspension (Milk of Magnesia) Allergy/AdvReac Type Severity Reaction Status Date / Time No Known Allergies Allergy Verified 10/28/24 10:53 Family History Mother Alzheimer dementia Breast cancer [...] changes Vital Signs Vital Signs Vital Signs: 10/28/24 10:53 10/28/24 10:53 10/28/24 11:34 Temperature 98.6 F 98.6 F Temperature Source Temporal Pulse Rate 66 66 Respiratory Rate 18 18 Respiratory Pattern Normal Blood Pressure 105/92 H 105/92 H Blood Pressure Mean 96 Blood Pressure Source Monitor Blood Pressure Position Sitting Blood Pressure Location Left Arm Pulse Ox 100 100 Oxygen Delivery Method Room Air Weight Weight: 208 lb Body Mass Index (BMI) 33.5 Physical Exam Const alert, oriented x3, no apparent distress and healthy appearing General Appearance: cooperative GI normal to inspection, nondistended, normoactive bowel sounds, soft to palpation,non-tender and non-distended Percussion: normal to percussion Rectal Exam: deferred Results Lab / Micro Data Labs: Laboratory Results - last 24 hr 10/28/24 10:58: POC Glucose 114 H Assessment & Plan Assessment/Plan (1) Gastric ulcer: (2) Anemia: QUALIFIERS: Anemia type: iron deficiency PLAN: Assessment and Plan Assessment and Plan (1) Anemia: Status: Acute Qualifiers: Anemia type: iron deficiency Plan: This is a 78 yo female pt here today for f/u regarding her anemia. Pt underwent EGD and colonoscopy in June 2024 which showed diverticulosis. one polyp and a gastric ulcer. I reviewed these results with her. She was scheduled for repeat EGD to ensure healing of gastric ulcer. I recommended she continue daily PPI andiron supplement. Her hemoglobin has been stable with last one being 11.4 (07/22/24). Will continue to monitor this. She will f/u after repeat EGD. SHe hasno GI concerns at this time. -Repeat EGD -Continue PPI and iron -Monitor Hgb -f/u after procedure (2) Gastric ulcer: Status: Acute 10/28/24 1147 <Electronically signed by Jacinto Munoz DO> Cosigner Signature (if applicable): CC: April Mullen MD; Jacinto Munoz DO~ Signed [facility] Work Phone: History of Present illness Narrative* [...] in their home. * Based on this [id number]-yu-zfle evaluation, the patient has functional limitations that [...] home for palliative care, PT, OT and INDUSTRIAL ENGINEERING TECHNICIAN. She is realizing that she cannot do anything about many of the things. Seemed to get worse after Cody from Palliative care put her on Effexor and now it is costly do will go back to Paxil. 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 . She is not getting [...] expected for medication profile * CSA 10/30/19 -[facility] Work Phone: History of Present illness Narrative* Has changed [employer] companies and needs new certification. She continues [...] insurance would like to get someone for [employer]. Has had PT, OT and INDUSTRIAL ENGINEERING TECHNICIAN. She is realizing that she cannot do [...] Hyperlipidemia - with DM treating this with Ericaor. * Lymphedema of leg - exercises have [...] appropriate to continue to prescribe this medication. -[facility] Work Phone: History of Present illness [...] palliative care. Has had PT, OT and INDUSTRIAL ENGINEERING TECHNICIAN. She is realizing that she cannot do [...] appropriate to continue to prescribe this medication. -[facility] Work Phone: History of Present illness [...] palliative care. Has had PT, OT and INDUSTRIAL ENGINEERING TECHNICIAN but none now. . She is realizing [...] this one and talked to herabout it -[facility] Work Phone: History of Present illness [...] Shad and [place]. * No longer has [employer]. She is doing better and able to [...] palliative care. Has had PT, OT and INDUSTRIAL ENGINEERING TECHNICIAN but none now. . She is realizing [...] and uses bedpan. Plans to go to [facility] and slide over. Has a walker but uses a wheelchair * Hyperlipidemia - with DM treating this with Irene. Good this time * Lymphedema of leg [...] this one and talked to herabout it [facility] Work Phone: Hospital Discharge instructions* Attachments The following attachments cannot be sent through Care Everywhere. * Minor Contusion ED (Libyan) [facility]: reason for referral (narrative)* Consultation (Routine) - Authorized Specialty Diagnoses / Procedures Referred By Akiko delgado Referred To Contact 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, managed as type 2 (CMS/HCC) Procedures Follow Up In Primary Care - Established Huan Mcdaniel MD [address] [facility], [place] [id number] Referral ID Status Reason Start Date Expiration Date V isits Requested Visits Authorized [id number] Authorized 03/13/2023 03/12/2024 1 1 [facility] Work Phone: reason for referral (narrative)* Consultation (Routine) - Authorized Specialty Diagnoses / Procedures Referred By Akiko delgado Referred To Contact 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, managed as type 2 (CMS/HCC) Procedures Follow Up In Primary Care - Established Huan Mcdaniel MD [address] [facility], [address] [address] Referral ID Status Reason Start Date Expiration Date V isits Requested Visits Authorized [id number] Authorized 04/20/2023 04/19/2024 1 1 [facility] Work Phone: Rehmzq for referral (narrative)* Consultation (Routine) - Authorized Specialty Diagnoses / Procedures Referred By Contac t Referred To Contact Pharmacy Diagnoses Persistent atrial fibrillation (Multi) Marleen Sigala APRN-CNP, RAMON [address] [facility], [address] [place] [phone] [facility] [address] [place] [address] Referral ID Status Reason Start Date Expiration Date Visits Requested Visits Authorized [id number] Authorized Specialty Services Required 07/20/2023 07/19/2024 1 1 [facility] Work Phone: Resxcn for referral (narrative)* Consultation (Routine) - Authorized Specialty Diagnoses / Procedures Referred By Contac t Referred To Contact Primary Care Procedures Follow Up In Primary Care - Established Huan Mcdaniel MD [address] [facility], [address] [place] [phone] Referral ID Status Reason Start Date Expiration Date V isits Requested Visits Authorized [id number] Authorized 08/20/2023 08/19/2024 1 1 [facility] Work Phone: Reoyjc for referral (narrative)No reason for referral information [facility] Work Phone: Reason for visit Narrative* Auth/Cert Specialty Diagnoses / Procedures Referred By Contac t Referred To Contact Diagnoses Metastatic Lesions/Thoracic spine Procedures No coded [place] [address] [place] [address] [facility] [address] [address] [place] [address] Referral ID Status Reason Start Date Expiration Date Visits Re quested Visits Authorized [id number] 1 1 [facility] Work Phone: Summary Purpose Family History [...] Will Yes March 28 11:57am Power of Framing Mill Operator Yes March 28, 2024 11:57am Name of Medical Power of Framing Mill Operator eva barrientos March 28, 2024 11:57am Advance Directive Response Recorded Date/ Time Living Will Yes March 28 12:57pm Do you have a Healthcare Pow er of Framing Mill Operator? Yes March 28, 2024 12:57pm Name of Medical Power of Framing Mill Operator eva barrientos March 28, 2024 12:57pm Living Will No June 30, 2024 11:18am Do you have a Healthcare Pow er of Framing Mill Operator? Yes June 30, 2024 11:18am Name of Medical Power of Framing Mill Operator AGUSTIN June 30, 2024 11:18am Advance Directive Response Recorded Date/ Time Living Will No June 30, 2024 11:18am Do you have a Healthcare Power of Framing Mill Operator? Yes June 30, 2024 11:18am Name of Medical Power of Framing Mill Operator SON June 30, 2024 11:18am Advance Directive Response Recorded Date/ Time Living Will No June 30, 2024 11:18am Do you have a Healthcare Power of Framing Mill Operator? Yes June 30, 2024 11:18am Name of Medical Power of Framing Mill Operator SON June 30, 2024 11:18am Do you have a Healthcare Power of Framing Mill Operator? Yes October 21, 2024 8:35am Chief Complaint medck* A telephone visit (audio [...] , for a telehealth visit. * pretty medckLongstanding persistent atrial fibrillationmedck and AWV Reason for Referral Specialty Diagnoses / Procedures Referred By Akiko t Referred To Contact Radiology Diagnoses Lung mass Malignant neoplasm of unspecified part of unspecified bronchus or lung (Multi) Procedures [place] [address] [address] [facility] [place] [address] Referral ID Status Reason Start Date Expiration Date Visits Requested Visits Authorized [id number] Pending Review Perform Procedure 11/20/2023 11/19/2024 3 3 Specialty Diagnoses / Procedures Referred By Contac t Referred To Contact Pulmonary Disease / Pulmonology [place] [address] [address] [facility] [place] [address] Referral ID Status Reason Start Date Expiration Date Visits Requested Visits Authorized [id number] Authorized Specialty Services Required 11/20/2023 11/19/2024 1 1 Specialty Diagnoses / Procedures Referred By Akiko delgado Referred To Contact Radiology Diagnoses Vertebral osteomyelitis (Multi) Discitis, unspecified, thoracic region Procedures NM PET CT bone skull base to mid [place] [address] [place] [address] Referral ID Status Reason Start Date Expiration Date Visits Requested Visits Authorized [id number] Pending Review Perform Procedure 12/27/2023 12/26/2024 3 3 Chief Complaint and Reason for Visit Chief Complaint Admit Date GROUP HOME LAB WORK February 26 4:00am GROUP [facility] WORK March 28 4:00am abnormal labs March 28, 2024 11:52am [facility] WORK April 03 5:00am GROUP HOME LAB WORK April 07 5:00am GROUP HOME LAB WORK April 14, 2024 5:00am Anemia April 28, 2024 1 0:28am GROUP HOME LAB WORK May 12, 2024 7:20am GROUP HOME LAB WORK May 27 4:00am LABOWRK June 02, 2024 5:00am GROUP HOME LAB WORK June 03 4:00am LABWORK June 04, 2024 5:00am Reason for Visit Admit Date Anemia April 28, 2024 1 0:28am Chief Complaint Admit Date GROUP HOME LAB WORK March 28 4:00am abnormal labs March 28, 2024 11:52am GROUP HOME LAB WORK April 03 5:00am GROUP HOME LAB WORK April 07 5:00am GROUP HOME LAB WORK April 14, 2024 5:00am Anemia April 28, 2024 1 0:28am GROUP HOME LAB WORK May 12, 2024 7:20am GROUP HOME LAB WORK May 27 4:00am LABOWRK June 02, 2024 5:00am GROUP HOME LAB WORK June 03 4:00am LABWORK June 04, 2024 5:00am Reason for Visit Admit Date Anemia April 28, 2024 1 0:28am Anemia July 01, 2024 11: 19am Chief Complaint Admit Date GROUP HOME LAB WORK March 28 4:00am abnormal labs March 28, 2024 11:52am GROUP HOME LAB WORK April 03 5:00am GROUP HOME LAB WORK April 07 5:00am GROUP HOME LAB WORK April 14, 2024 5:00am Anemia April 28, 2024 1 0:28am GROUP HOME LAB WORK May 12, 2024 7:20am GROUP HOME LAB WORK May 27 4:00am LABOWRK June 02, 2024 5:00am GROUP HOME LAB WORK June 03 4:00am LABWORK June 04, 2024 5:00am GROUP HOME LAB WORK June 24, 2024 5 :00am Chief Complaint Admit Date Anemia April 28, 2024 1 0:28am GROUP HOME LAB WORK May 12, 2024 7:20am GROUP HOME LAB WORK May 27 4:00am LABOWRK June 02, 2024 5:00am GROUP HOME LAB WORK June 03 4:00am LABWORK June 04, 2024 5:00am GROUP HOME LAB WORK June 24, 2024 5 :00am GROUP HOME LAB WORK July 22, 2024 5 :00am AFIB, CHF, HTN (APRIL GUDIA) July 10:52am Test Result July 31, 2024 [...] Gastric ulcer July 31, 2024 8:5 2am Chief Complaint Admit Date GROUP HOME LAB WORK June 24, 2024 5 :00am GROUP HOME LAB WORK July 22, 2024 5 :00am AFIB, CHF, HTN (APRIL GUDIA) July 10:52am Test Result July 31, 2024 8:5 2am CHF August 13, 2024 8:06am Congestive heart failure August 13, 2024 1 0:41am GROUP HOME LAB WORK August 19, 2024 5:0 0am GROUP HOME LAB WORK September 16, 2024 5: 00am 3 M FU October 09, 2024 2:38p m Reason for Visit Admit Date Anemia July 01, 2024 11: 19am A-fib July 23, 2024 10: 52am Chronic HFrEF (heart failure with reduce d ejection fraction) July 23, 2024 10:52am Diabetes July 23, 2024 10: 52am Hypertension July 23, 2024 10: 52am Anemia July 31, 2024 8:5 2am Gastric ulcer July 31, 2024 8:5 2am A-fib October 09, 2024 2:38p m Chronic HFrEF (heart failure with reduce d ejection fraction) October 09, 2024 2:38pm Hypertension October 09, 2024 2:38p m Chief Complaint Admit Date GROUP HOME LAB WORK July 22, 2024 5 :00am AFIB, CHF, HTN (APRIL PAULINO) July 10:52am Test Result July 31, 2024 8:5 2am CHF August 13, 2024 8:06am Congestive heart failure August 13, 2024 1 0:41am GROUP HOME LAB WORK August 19, 2024 5:0 0am GROUP HOME LAB WORK September 16, 2024 5: 00am 3 M FU October 09, 2024 2:38p m Reason for Visit Admit Date Anemia July 01, 2024 11: 19am A-fib July 23, 2024 10: 52am Chronic HFrEF (heart failure with reduce d ejection fraction) July 23, 2024 10:52am Diabetes July 23, 2024 10: 52am Hypertension July 23, 2024 10: 52am Anemia July 31, 2024 8:5 2am Gastric ulcer July 31, 2024 8:5 2am Aortic stenosis October 09, 2024 2:38p m A-fib October 09, 2024 2:38p m Chronic HFrEF (heart failure with reduce d ejection fraction) October 09, 2024 2:38pm Hyperlipidemia October 09, 2024 2:38p m Hypertension October 09, 2024 2:38p m Anemia October 28, 2024 10:2 7am Gastric ulcer October 28, 2024 10:2 7am Additional Source Comments INFORMATION SOURCE (unrecogn ized section and content) DATE CREATED AUTHOR 11/12/2018 [facility] DATE CREATED AUTHOR AUTHOR'S ORGANIZ ATION 10/24/2020 [facility] DATE CREATED AUTHOR AUTHOR'S ORGANIZ ATION 06/05/2022 [employer] DATE CREATED AUTHOR AUTHOR'S ORGANIZ ATION 09/30/2022 [facility] DATE CREATED AUTHOR AUTHOR'S ORGANIZ ATION 11/15/2023 [facility] DATE CREATED AUTHOR AUTHOR'S ORGANIZ ATION 11/17/2023 [facility] DATE CREATED AUTHOR AUTHOR'S ORGANIZ ATION 03/02/[address] [facility] DATE CREATED AUTHOR AUTHOR'S ORGANIZ ATION 07/16/2024 [facility] DATE CREATED AUTHOR AUTHOR'S ORGANIZ ATION 09/20/2024 [facility] DATE CREATED AUTHOR AUTHOR'S ORGANIZ ATION 11/05/2024 [facility] DATE CREATED AUTHOR AUTHOR'S ORGANIZ ATION 11/09/2024 [facility] Reason for Visit (unrecogniz ed section and content) Reason Comments Follow-up Was in hospital for uti, developed C. 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, without long-term current use of insulin (CMS/HCC) Procedures Follow Up In Primary Care Huan Mcdaniel MD [address] [facility], [place] [address] Referral ID Status Reason Start Date Expiration Date V isits Requested Visits Authorized [id number] Authorized 08/31/2022 02/27/2023 1 1 Reason Comments Med Management Increased depression Reason Comments Follow-up Specialty Diagnoses / Procedures Referred By Akiko delgado Referred To Contact 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, managed as type 2 (CMS/HCC) Procedures Follow Up In Primary Care - Established Huan Mcdaniel MD [address] [facility], [address] [place] [address] Referral ID Status Reason Start Date Expiration Date V isits Requested Visits Authorized [id number] Authorized 03/13/2023 03/12/2024 1 1 Reason Comments Foot Injury Dropped a soup can o nto her right foot. +swelling. Able to move toes. Reason Comments Follow-up ER for right foot co ntusion Reason Comments Atrial Fibrillation Specialty Diagnoses / Procedures Referred By Akiko delgado Referred To Contact Pharmacy Diagnoses Persistent atrial fibrillation (Multi) Marleen Sigala, DIRECTOR CHEMISTRY-GLOVE BOARDER, DNP [address] [facility], [address] [place] [address] [facility] [address] [place] [address] Referral ID Status Reason Start Date Expiration Date Visits Requested Visits Authorized [id number] Authorized Specialty Services Required 07/20/2023 07/19/2024 1 1 Reason Comments Med Management Specialty Diagnoses / Procedures Referred By Akiko delgado Referred To Contact Primary Care Diagnoses Chronic atrial fibrillation (Multi) Procedures Follow Up In Primary Care - Established Huan Mcdaniel MD [address] [facility], [address] [place] [address] Referral ID Status Reason Start Date Expiration Date V isits Requested Visits Authorized [id number] Authorized 05/21/2023 05/20/2024 1 1 Reason Comments [...] Hyponatremia Procedures Renetta Moseley MD [address] [place] [address] [id number] Referral ID Status Reason Start Date Expiration Date Visits Re quested Visits Authorized [id number] 1 1 Reason Comments Post-op Pt has complaints of back pain where her roberta are that's described as a intermittent aching. Reason Comments Appointment Appointment Care Teams (unrecognized sec tion and content) Commercial Crabber Relationship Specialty Start Date End Date Huan Mcdaniel MD [address] [facility], [address] [place] [phone] PCP - General 12/10/18 Huan Mcdaniel MD [address] [facility], [address] [place] [phone] PCP - [employer] Medicare Advantage PCP 10/07/21 Diana Marcano MA Rivet He[employer] Operator 10/11/22 Commercial Crabber Relationship Specialty Start Date End Date Huan Mcdaniel MD [address] [facility], [address] [place] [phone] PCP - General 12/10/18 Huan Mcdaniel MD [address] [facility], [address] [place] [phone] PCP - [employer] Medicare Advantage PCP 10/07/21 Diana Marcano MA [employer] GasChlorine Cells Operator 10/11/22 Commercial Crabber Relationship Specialty Start Date End Date Huan Mcdaniel MD [address] [facility], [address] [place] [phone] PCP - General 12/10/18 Huan Mcdaniel MD [address] [facility], [address] [place] [phone] PCP - [place] Medicare Advantage PCP 10/07/21 Commercial Crabber Relationship Specialty Start Date End Date Huan Mcdaniel MD [address] [facility], [address] [place] [address] PCP - General 12/10/18 Huan Mcdaniel MD [address] [facility], [address] [place] [address] PCP - [place] Medicare Advantage PCP 10/07/21 Commercial Crabber Relationship Specialty Start Date End Date Huan Mcdaniel MD [address] [facility], [address] [place] [address] PCP - General 12/10/18 Huan Mcdaniel MD [address] [facility], [address] [place] [address] PCP - [place] Medicare Advantage PCP 10/07/21 Commercial Crabber Relationship Specialty Start Date End Date Huan Mcdaniel MD [address] [facility], [address] [place] [address] PCP - General 12/10/18 Huan Mcdaniel MD [address] [facility], [address] [place] [address] PCP - [place] Medicare Advantage PCP 10/07/21 Huan Mcdaniel MD [address] [facility], [address] [place] [address] PCP - [employer] Medicare Advantage PCP 05/10/23 Commercial Crabber Relationship Specialty Start Date End Date Huan Mcdaniel MD [address] [facility], [address] [place] [address] PCP - General 12/10/18 Huan Mcdaniel MD [address] [facility], [address] [place] [address] PCP - [employer] Medicare Advantage PCP 10/07/21 Huan Mcdaniel MD [address] [facility], [address] [place] [address] PCP - [employer] Medicare Advantage PCP 05/10/23 Commercial Crabber Relationship Specialty Start Date End Date Huan Mcdaniel MD [address] [facility], [address] [place] [address] PCP - General 12/10/18 Huan cMdaniel MD [address] [facility], [address] [place] [address] PCP - [employer] Medicare Advantage PCP 05/10/23 Commercial Crabber Relationship Specialty Start Date End Date Huan Mcdaniel MD [address] [facility], [address] [place] [address] PCP - General 12/10/18 Huan Mcdaniel MD [address] [facility] [address] [place] [address] PCP - [employer] Medicare Advantage PCP 05/10/23 Commercial Crabber Relationship Specialty Start Date End Date Huan Mcdaniel MD [address] [facility] [address] [place] [address] PCP - General 12/10/18 Huan Mcdaniel MD [address] [facility] [address] [place] [address] PCP - [employer] Medicare Advantage PCP 05/10/23 Commercial Crabber Relationship Specialty Start Date End Date Huan Mcdaniel MD [address] [facility] [address] [place] [address] PCP - General 12/10/18 Huan Mcdaniel MD [address] [facility] [address] [place] [address] PCP - [employer] Medicare Advantage PCP 05/10/23 Commercial Crabber Relationship Specialty Start Date End Date Huan Mcdaniel MD [address] [facility] [address] [place] [address] PCP - General 12/10/18 Huan Mcdaniel MD [address] [facility] [address] [place] [address] PCP - [employer] Medicare Advantage PCP 05/10/23 Commercial Crabber Relationship Specialty Start Date End Date Huan Mcdaniel MD [address] [facility] [address] [place] [address] PCP - General 12/10/18 Huan Mcdaniel MD [address] [facility], [address] [place] [address] PCP - [employer] Medicare Advantage PCP 05/10/23 Commercial Crabber Relationship Specialty Start Date End Date Huan Mcdaniel MD [address] [facility], [address] [place] [address] PCP - General 12/10/18 Huan Mcdaniel MD [address] [facility], [address] [place] [address] PCP - [employer] Medicare Advantage PCP [...] Provider Active Start: June 02, 2024 Dr. pAril LUCERO MD Attending Provider Active Start: June [...] Attending Provider Active Start: August 19, 2024 Team Status: Active Member Role/Relationship Status Dates Dr. April Mullen MD Primary Care Provider Active Team Status: Inactive Member Role/Relationship Status Dates Dr. April Mullen MD Primary Care Provider Active Start: June 24, 2024 End: June 24, 2024 Dr. Delgado LUCERO MD Attending Provider Active Start: June 24, 2024 End: June 24, 2024 Team Status: Inactive Member Role/Relationship Status Dates Dr. April Mullen MD Primary Care Provider Active Start: July 01, 2024 End: July 01, 2024 Dr. April Mullen MD Referring Provider Active Start: July 01, 2024 End: July 01, 2024 Dr. Jacinto Munoz DO Attending Provider Active Start: July 01, 2024 End: July 01, 2024 Team Status: Active Member Role/Relationship Status Dates Dr. April Mullen MD Primary Care Provider Active Start: July 01, 2024 Dr. April Mullen MD Referring Provider Active Start: July 01, 2024 Dr. Jacinto Munoz DO Attending Provider Active Start: July 01, 2024 Dr. Jacinto Munoz DO Other Provider Active St art: July 01, 2024 Team Status: Inactive Member Role/Relationship Status Dates Dr. April Mullen MD Primary Care Provider Active Start: July 22, 2024 End: July 22, 2024 Dr. Delgado LUCERO MD Attending Provider Active Start: July 22, 2024 End: July 22, 2024 Team Status: Inactive Member Role/Relationship Status Dates Dr. April Mullen MD Primary Care Provider Active Start: July 23, 2024 End: July 23, 2024 Dr. April Mullen MD Referring Provider Active Start: July 23, 2024 End: July 23, 2024 Dr. Henri Pedraza MD Attending Provider Active Start: July 23, 2024 End: July 23, 2024 Team Status: Inactive Member Role/Relationship Status Dates Dr. April Mullen MD Primary Care Provider Active Start: July 31, 2024 End: July 31, 2024 Dr. April Mullen MD Referring Provider Active Start: July 31, 2024 End: July 31, 2024 FIDELIA Dc Attending Provider Active Start: July 31, 2024 End: July 31, 2024 Team Status: Inactive Member Role/Relationship Status Dates Dr. April Mullen MD Primary Care Provider Active Start: August 13, 2024 End: August 13, 2024 Dr. Henri Pedraza MD Attending Provider Active Start: August 13, 2024 End: August 13, 2024 Dr. Henri Pedraza MD Referring Provider Active Start: August 13, 2024 End: August 13, 2024 Team Status: Active Member Role/Relationship Status Dates Dr. April Mullen MD Primary Care Provider Active Start: August 13, 2024 Dr. Henri Pedraza MD Attending Provider Active Start: August 13, 2024 Dr. Henri Pedraza MD Referring Provider Active Start: August 13, 2024 Dr. Henri Pedraza MD Other Provider Active Star t: August 13, 2024 Team Status: Active Member Role/Relationship Status Dates Dr. April Mullen MD Primary Care Provider Active Start: August 19, 2024 Dr. Delgado LUCERO MD Attending Provider Active Start: August 19, 2024 Team Status: Active Member Role/Relationship Status Dates Dr. April Mullen MD Primary Care Provider Active Start: September 16, 2024 Dr. Delgado LUCERO MD Attending Provider Active Start: September 16, 2024 Team Status: Inactive Member Role/Relationship Status Dates Dr. April Mullen MD Primary Care Provider Active Start: October 09, 2024 End: October 09, 2024 Dr. April Mullen MD Referring Provider Active Start: October 09, 2024 End: October 09, 2024 Yennifer Pemberton NP, ACCOUNT AUDITOR-C Attending Provider Active Start: October 09, 2024 End: October 09, 2024 Team Status: Inactive Member Role/Relationship Status Dates Dr. April Mullen MD Primary Care Provider Active Start: July 01, 2024 End: July 01, 2024 Dr. April Mullen MD Referring Provider Active Start: July 01, 2024 End: July 01, 2024 Dr. Jacinto Munoz DO Attending Provider Active Start: July 01, 2024 End: July 01, 2024 Team Status: Active Member Role/Relationship Status Dates Dr. April Mullen MD Primary Care Provider Active Start: July 01, 2024 Dr. April Mullen MD Referring Provider Active Start: July 01, 2024 Dr. Jacinto Munoz DO Attending Provider Active Start: July 01, 2024 Dr. Jacinto Munoz DO Other Provider Active St art: July 01, 2024 Team Status: Inactive Member Role/Relationship Status Dates Dr. April Mullen MD Primary Care Provider Active Start: July 22, 2024 End: July 22, 2024 Dr. Delgado LUCERO MD Attending Provider Active Start: July 22, 2024 End: July 22, 2024 Team Status: Inactive Member Role/Relationship Status Dates Dr. April Mullen MD Primary Care Provider Active Start: July 23, 2024 End: July 23, 2024 Dr. April Mullen MD Referring Provider Active Start: July 23, 2024 End: July 23, 2024 Dr. Henri Pedraza MD Attending Provider Active Start: July 23, 2024 End: July 23, 2024 Team Status: Inactive Member Role/Relationship Status Dates Dr. April Mullen MD Primary Care Provider Active Start: July 31, 2024 End: July 31, 2024 Dr. April Mullen MD Referring Provider Active Start: July 31, 2024 End: July 31, 2024 FIDELIA Dc Attending Provider Active Start: July 31, 2024 End: July 31, 2024 Team Status: Inactive Member Role/Relationship Status Dates Dr. April Mullen MD Primary Care Provider Active Start: August 13, 2024 End: August 13, 2024 Dr. Henri Pedraza MD Attending Provider Active Start: August 13, 2024 End: August 13, 2024 Dr. Henri Pedraza MD Referring Provider Active Start: August 13, 2024 End: August 13, 2024 Team Status: Active Member Role/Relationship Status Dates Dr. April Mullen MD Primary Care Provider Active Start: August 13, 2024 Dr. Henri Pedraza MD Attending Provider Active Start: August 13, 2024 Dr. Henri Pedraza MD Referring Provider Active Start: August 13, 2024 Dr. Henri Pedraza MD Other Provider Active Star t: August 13, 2024 Team Status: Active Member Role/Relationship Status Dates Dr. April Mullen MD Primary Care Provider Active Start: August 19, 2024 Dr. Delgado LUCERO MD Attending Provider Active Start: August 19, 2024 Team Status: Active Member Role/Relationship Status Dates Dr. April Mullen MD Primary Care Provider Active Start: September 16, 2024 Dr. Delgado LUCERO MD Attending Provider Active Start: September 16, 2024 Team Status: Inactive Member Role/Relationship Status Dates Dr. April Mullen MD Primary Care Provider Active Start: October 09, 2024 End: October 09, 2024 Dr. April Mullen MD Referring Provider Active Start: October 09, 2024 End: October 09, 2024 Yennifer Pemberton ACCOUNT AUDITOR, ACCOUNT AUDITOR-C Attending Provider Active Start: October 09, 2024 End: October 09, 2024 Team Status: Inactive Member Role/Relationship Status Dates Dr. April Mullen MD Primary Care Provider Active Start: October 28, 2024 End: October 28, 2024 Dr. April Mullen MD Referring Provider Active Start: October 28, 2024 End: October 28, 2024 Dr. Jacinto Munoz DO Attending Provider Active Start: October 28, 2024 End: October 28, 2024 Team Status: Active Member Role/Relationship Status Dates Dr. April Mullen MD Primary Care Provider Active Start: October 28, 2024 Dr. April Mullen MD Referring Provider Active Start: October 28, 2024 Dr. Jacinto Munoz DO Attending Provider Active Start: October 28, 2024 Dr. Jacinto Munoz DO Other Provider Active St art: October 28, 2024 Scheduled Active and Recently Administ ered [...] pain scores based on patient preference? Yes 1816 (Given - Provid er: Bess Carrasquillo RN) [...] Deonna Barry RN)0542 (Stopped - Provider: Deonna Barry, UZMA) cephalexin (Keflex) capsule 500 mg (COMPLETED) 500 mg, oral, Every 12 hours scheduled, First dose on 10/13/23 at 1145, For 2 days, Suspected Indication (Select all that apply): Urinary Tract Infection, Type of Therapy: Definitive, Based on Culture, Type of Urinary Tract Infection: Complicated, Indications: Urinary Tract Infection 1220 (Given - Provider: Ethel Iverson RN)2041 (Given - Provider: Raquel Ibrahim, UZMA) 08 (Given - Provider: Ethel Iverson RN)2058 (Given [...] Nightly, First dose on Sun10/14/23 at 2100 2059 (Given - Provider: Raquel Ibrahim, UZMA) 2100 (Due) ferrous gluconate (Fergon) 324 (38 Fe) mg tablet 38 mg of iron 38 mg of iron, oral, Daily with breakfast, First dose on Sun10/10/23 at 0800, Do not crush, chew, or split. 0832 (Given - Provider: Ethel Iverson RN) 0839 (Given - Provider: Ethel Iverson RN) 0824 (Given - Provider: Fátima Guadarrama RN) insulin lispro (HumaLOG) injection 0-10 Units 0-10 [...] Ethel Iverson RN)1721 (Given - Provider: Ethel Iverson, UZMA) 0824 (Given - Provider: Fátima Guadarrama RN)1315 [...] 2 LPM, Keep O2 Sat Above: 92% 08 (Due)1999 (Due) 0636 (Due - Provider: Kenya Vera, BLACKJACK SUPERVISOR)1999 (Due) 06 ([employer] - Provider: Ladi Kaba, DAY CARE CENTER DIRECTOR)1999 (Due) phenazopyridine (Pyridium) tablet 200 mg 200 [...] Patient/family refused) 0900 (Not Given - Provider: Ethel Iverson RN - Reason: Patient/family refused) 0900 (Not Given - Provider: Fátima Guadarrama, RN - Reason: Patient/family refused) rivaroxaban (Xarelto) [...] Other - Comment: pt. having loose stool) 818 (Given - Provider: Fátima Guadarrama RN)2099 (Due) venlafaxine XR (Effexor-XR) 24 hr capsule [...] constipation, first line, Starting on Sun10/10/23 at 05, Contact provider if no bowel movement in [...] Sarah Zepeda RN)2101 (Given - Provider: Armida Maria, UZMA) 0900 (Given - Provider: Sonya Fine RN)1700 [...] needed. 0933 (Given - Provider: Sarah Zepeda RN)2106 (Given - Provider: Armida Maria RN) 0900 (Given - Provider: Sonya Fine RN)2156 (Given - Provider: Belgica York RN) 0745 (Given - Provider: Sonya Fine RN)2100 (Due) polyethylene glycol (Glycolax, Miralax) packet 34 g 34 g, oral, 2 times daily, First dose (after last modification) on Sun11/11/23 at 2100, Bowel Regimen - for prevention of constipation. 0900 (Not Given - Provider: Sarah Zepeda RN - Reason: Patient/family refused)2100 (Given - Provider: Armida Maria RN - Comment: pt wants to only take 17g) 09 (Not Given - Provider: Sonya Fine RN - Reason: Patient/family refused)2127 (Given - Provider: Belgica York RN) 928 (Given - Provider: Sonya Fine RN)2099 (Due) [...] 2128 (Given - Provider: Belgica York RN) 2099 (Due) sennosides (Senokot) tablet 17.2 mg 17.2 mg (2 tablet), oral, 2 times daily, First dose on Sun11/11/23 at 1115 0932 (Given - Provider: Sarah Zepeda RN)2099 (Not Given - Provider: Armida Maria RN - Reason: Patient/family refused) 09 (Given - Provider: Sonya Fine RN)2126 (Given - Provider: Belgica York RN) 0932 (Given - Provider: Sonya Fine RN)2099 (Due) vancomycin (Vancocin) 1,000 mg in dextrose [...] that apply): Osteomyelitis/Septic Arthritis, Indications: Osteomyelitis/Septic Arthritis 1700 (Due) vancomycin (Vancocin) in dextrose 5 % water (D5W) 250 mL IV 1,250 mg (CANCELED) 1,250 mg, intravenous, at 200 mL/hr, Administer over 75 Minutes, Every 24 hours, First dose on Sun11/09/23 at 1300, Mini-Bag Plus/ADD-Hampton bag, Dosing of this medication varies based [...] without chewing. Do not crush or chew. 930 (Given - Provider: Sonya Fine RN) venlafaxine XR (Effexor-XR) 24 hr capsule 75 mg (CANCELED) 75 mg, oral, Daily, First dose on Sun11/09/23 at 0900, Capsule may be swallowed whole, or may be opened and its contents sprinkled on applesauce if consumed immediately without chewing. Do not crush or chew. 0932 (Given - Provider: Sarah Zepeda RN) 0901 (Given - Provider: Sonya Fine, RN) PRN Medication Order 11/18/2023 11/19/2023 11/20/2023 [...] Zepeda RN) 0858 (Given - Provider: Sonya Fine, RN) 0855 (Given - Provider: Sonya Fine, RN) alteplase (Cathflo Activase) injection 2 mg [...] at 1845 0924 (Given - Provider: Sonya Fine, UZMA) ipratropium-albuteroL (Duo-Neb) 0.5-2.5 mg/3 mL nebulizer solution [...] be documented in a n alternate section Source Comments (unrecognize d section and content) In the event this informatio n is protected by the [facility] Confidentiality of Alcohol and Drug Abuse Patient Records regulations: The Federal rules restrict any use of the information to criminally investigate or prosecute any alcohol or drug abuse patient.[facility] the event this information is protected by the Federal Confidentiality of Alcohol and Drug Abuse Patient Records regulations: The Federal rules restrict any use of the information to criminally investigate or prosecute any alcohol or drug abuse patient.[facility] FOR RECORDS PERTAINING TO PATIENTS WHO ARE [...] BE BASED ON THE PRIMARY CLINICAL RECORDS. [employer] [facility]. provides no warranty or guarantee of the accuracy or completeness of information in this document.
[2024-11-09 06:16] LABS: Anion Gap 15 (5-15); BUN 36 mg/dL (4-19); BUN/Creat Ratio 22.7 RATIO (10-20); Calcium,Total 9.1 mg/dL (7.6-11.0); Carbon Dioxide 24.8 mmol/L (21.0-32.0); Chloride 99 mmol/L (98-108); Estimated Creatinine Clearance 38.00 ml/min (50-250); Glucose 133 mg/dL (70-99); Potassium 4.5 mmol/L (3.3-5.1)
[2024-11-09 06:20] LABS: Pro- Brain NATRIURETIC PEPTIDE 55945 pg/mL (<=1800)
--- NOTE | 2024-11-09 07:47 | PCM.HP.STD ---
HPI - General General Date of Admission: 11/09/24 Date of Service: 11/09/24 Chief Complaint: Lower extremity swelling and shortness of breath HPI Narrative DARYN SHAH, is a 78-year-old female history of heart failure with reduced ejection fraction, diabetes, A-fib on Eliquis, COPD, GERD, depression and anxiety who presented [facility] ED 11/09/2024 due to increasing lower extremity swelling, weight gain, orthopnea and worsening dyspnea. She has a fairly recent diagnosis of heart failure and was on 20 mg of Lasix, due to these complaints the facility she has had increased her Lasix to 40 mg for the last 3 days however she has not had any improvement. Has a chronic cough from COPD but this has not changed at all from baseline and no other infectious symptoms. In ED temp 97.5, heart rate 102 with a blood pressure 126/81, respiratory rate 22 with pulse ox 98% on room air. CBC with hemoglobin 10.5, overall similar to previous, normal white blood cell count with no left shift. Patient with creatinine of 1.58 with a baseline of around 1.19, BNP 55,945 with chest x-ray showing possible asymmetric edema or consolidation in the right central lung and recommended follow-up imaging. Patient diagnosis heart failure exacerbation, given IV Lasix and hospitalist contacted for admission. Patient seen at bedside. She reports increased swelling in her lower extremities and shortness of breath over the past several days despite the increase in her Lasix, has a chronic cough that has not changed, denies any fevers or chills, ROS otherwise negative. Discussed with patient and she is supposed to follow-up at [facility] this coming Sunday for routine evaluation for options for her aortic stenosis. Discussed that she is vitally stable and it does seem reasonable to keep her here and give IV Lasix and discharge for her to follow-up outpatient even if her appointment would need to be moved versus transfer. Does not seem she needs emergent transfer for acute valve intervention given her stability. Patient agrees and prefers to stay here and follow-up outpatient with [facility] on discharge. [facility] Medical History Post-menopausal History of ulceration Gastric reflux History of stress test History of irregular heartbeat Aortic stenosis Lives in long term Wears glasses Wears partial dentures Marijuana use Discoloration of skin Open wound Insulin dependent diabetes mellitus Uses wheelchair Arthritis History of renal disease Low iron High cholesterol Back pain Dietary restriction History of GI bleed Non-smoker Chronic cough History of edema History of echocardiogram Cardiology follow-up encounter History of CHF (congestive heart failure) History of atrial fibrillation Palpitations Magnesium deficiency Diarrhea Asthma Vertebral osteomyelitis Discitis of thoracic region Intractable back pain Syndrome of inappropriate secretion of antidiuretic hormone Age-related incipient cataract of both eyes Iron deficiency anemia Generalized muscle weakness Morbid obesity with BMI of 40.0-44.9, adult Vitamin D deficiency Venous stasis ulcer with varicose veins Renal lesion Primary osteoarthritis of both knees History of colonic polyps Neurodermatitis Lymphedema of leg Lumbar facet arthropathy Benign essential hypertension Anemia Anxiety Depression CHF (congestive heart failure) A-fib COPD (chronic obstructive pulmonary disease) Kidney disease Diabetes Hyperlipidemia History of ESBL E. coli infection History of infection with vancomycin resistant Enterococcus (VRE) Altered mental status Home Medications ?Medication ?Instructions ?Recorded ?Last Taken ?Type cholecalciferol (vitamin D3) 25 25 mcg PO DAILY 12/31/23 Unknown History mcg (1,000 unit) capsule insulin lispro 100 unit/mL See Protocol subcut .TIDCM&HS 12/31/23 Unknown History subcutaneous pen (Humalog KwikPen (U-100) Insulin) nystatin 100,000 unit/gram topical 1 applic topical BID PRN skin 12/31/23 Unknown History powder irritation potassium chloride 10 mEq 20 meq PO DAILY 12/31/23 Unknown History capsule,extended release melatonin 3 mg tablet 6 mg (2 x 3 mg) PO QHS #0 tabs 01/08/24 Unknown Rx buspirone 5 mg tablet 5 mg PO BID 03/28/24 Unknown History dapagliflozin propanediol 5 mg 5 mg PO DAILY 03/28/24 Unknown History tablet (Farxiga) ferrous sulfate 325 mg (65 mg 325 mg PO QDAY 04/28/24 Unknown History iron) tablet furosemide 20 mg tablet 40 mg PO QAM 04/28/24 Unknown History pantoprazole 40 mg tablet,delayed 40 mg PO QDAY #90 tabs 04/28/24 Unknown Rx release cyclobenzaprine 10 mg tablet 5 mg PO TID 06/10/24 Unknown History acetaminophen 325 mg tablet 650 mg PO Q4H PRN Pain 1-08/16 Or 06/30/24 Unknown History Fever>100.7 albuterol sulfate 90 mcg/actuation 2 inh inhalation Q6H PRN shortness 06/30/24 Unknown History aerosol inhaler of breath or wheezing guaifenesin 400 mg tablet 400 mg PO Q4H PRN cough 06/30/24 Unknown History insulin glargine 100 unit/mL (3 8 unit subcut DAILY 06/30/24 07/01/24 History mL) subcutaneous pen (Lantus Solostar U-100 Insulin) polyethylene glycol 3350 17 17 g PO QODAY 06/30/24 Unknown History gram/dose oral powder (Miralax) apixaban 5 mg tablet (Eliquis) 5 mg PO BID #90 tabs 07/23/24 10/23/24 Rx carvedilol 3.125 mg tablet 3.125 mg PO BID #180 tabs 07/31/24 Unknown Rx docusate sodium 100 mg capsule 100 mg PO BID 10/09/24 Unknown History venlafaxine 150 mg 150 mg PO QDAY 10/09/24 Unknown History capsule,extended release 24 hr benzonatate 100 mg capsule 100 mg PO TID PRN cough 10/21/24 Unknown History magnesium hydroxide 400 mg/5 mL 30 ml PO DAILY PRN constipation 10/21/24 Unknown History oral suspension (Milk of Magnesia) Allergy/AdvReac Type Severity Reaction Status Date / Time No Known Allergies Allergy Verified 11/09/24 04:29 Family History Mother Alzheimer dementia Breast cancer Heart disease Brother Cystic fibrosis Surgical History History of colonoscopy S/P laminectomy History of tubal ligation Hx of cholecystectomy H/O section Social History Smoking Status: Never smoker alcohol intake: never ROS ROS Narrative General: Denies fever/chills HENT: Denies headache, denies stuffy nose, denies sore throat EYES: Denies changes in vision Resp: Chronic cough, has had some increased shortness of breath Cardiac: Denies chest pain GI: Denies abdominal pain, denies changes in bowel, denies nausea/vomiting : Denies changes in urination Extremity: Increased lower extremity swelling MSK: Denies weakness Neuro: Denies any numbness/tingling Heme: Denies any bleeding or bruising Skin: Denies rashes Psychiatric: No complaints voiced Vital Signs Vital Signs Vital Signs: 11/09/24 04:23 11/09/24 04:46 11/09/24 05:23 Temperature 97.5 F L Temperature Source Oral Pulse Rate 102 H 100 Respiratory Rate 22 H 22 H Respiratory Effort Normal Blood Pressure 126/81 H 98/72 Blood Pressure Mean 96 80 Pulse Ox 98 95 Oxygen Delivery Method Room Air Room Air 11/09/24 06:00 11/09/24 06:45 11/09/24 07:00 Temperature 98.6 F Temperature Source Pulse Rate 110 H 94 105 H Respiratory Rate 22 H 20 H 18 Respiratory Effort Blood Pressure 122/87 H 121/89 H 112/91 H Blood Pressure Mean 98 99 98 Pulse Ox 100 95 94 Oxygen Delivery Method Room Air Room Air Weight Weight: 109.7 kg Body Mass Index (BMI) 39.0 Physical Exam Narrative General: Alert, oriented, no apparent distress HEENT: Atraumatic, normocephalic Eyes: Anicteric, normal conjunctiva, extraocular movements grossly intact Neck: Supple Respiratory: Crackles at bases bilaterally, normal respiratory effort Cardiovascular: Irregularly irregular GI: Soft, nontender, nondistended Extremities: 2+ pitting edema at both lower extremities to hips Musculoskeletal: Moving all extremities Neuro: No overt focal neurological deficits Skin: No rashes appreciated Psych: Cooperative Results Lab / Micro Data 11/09/24 04:35 11/09/24 04:35 Labs: Laboratory Results - last 24 hr 11/09/24 04:35: WBC 8.8, RBC 3.93 L, Hgb 10.5 L, Hct 34.2 L, MCV 87.0, MCH 26.7 L, MCHC 30.7 L, RDW Std Deviation 53.2 H, RDW Coeff of Josiah 16.7 H, Plt Count 292, MPV 10.5, Immature Gran % (Auto) 0.500, Neut % (Auto) 57.8, Lymph % (Auto) 32.8, [place] % (Auto) 6.5, Eos % (Auto) 1.6, Baso % (Auto) 0.8, Absolute Neuts (auto) 5.1, Absolute Lymphs (auto) 2.88, Nucleated RBC % 0, Sodium 138, Potassium 4.5, Chloride 99, Carbon Dioxide 24.8, Anion Gap 15, BUN 36 H, Creatinine 1.58 H, Estim Creat Clear Calc 38.00 L, Est GFR (MDRD) Non-Af 34 L, BUN/Creatinine Ratio 22.7 H, Glucose 133 H, Calcium 9.1, [place] [address] H Imaging Radiology Impression Chest X-Ray 11/09/24 05:10 IMPRESSION: Possible asymmetric edema or consolidation in the right central lung. Recommend follow up imaging. Reading Location: [facility] Assessment & Plan Assessment/Plan (1) CHF exacerbation: PLAN: Plan #Acute exacerbation of chronic heart failure with reduced ejection fraction -Admit to telemetry -proBNP 55,945 -CXR showed edema versus consolidation, patient with no infectious symptoms whatsoever and clinical picture consistent with CHF, chest x-ray queried asymmetric edema but reviewing x-ray it looks consistent overall with CHF, does have a previous x-ray from 2020 in which the right lung was more opacified than the left, after patient begins diuresing with IV Lasix could consider repeat chest x-ray as repeat imaging was reportedly recommended -Continue IV lasix, will start with 40 IV daily and can further adjust dosing as tolerated but would avoid overaggressive diuresis too quickly given her aortic stenosis -Last echo 08/13/2024 with mild to moderate global left ventricular systolic dysfunction with EF estimated to be 40 to 45% and noted diastolic dysfunction, moderate mitral valve insufficiency and moderate tricuspid valve insufficiency with severe aortic valve stenosis, RVSP of 62 -Of note she had a stress test around the same time which was negative for ischemia - No repeat echo ordered given previous echo was less than 3 months ago -Does follow with [facility] on an outpatient basis and was last seen 10/09/2024 -Daily weights, I's and O's -Fluid restriction, heart healthy diet #SANDRA - Suspect cardiorenal - Baseline creatinine around 1.19, today 1.58 - Suspect this will improve with IV diuresis - Repeat in the a.m., avoid nephrotoxic agents as able # Severe aortic valve stenosis - Patient already scheduled to follow-up with [facility] for her heart valve in November, she reports this is on Sunday - Patient vitally stable and not hypoxic - Suspect she will just need IV diuresis for improvement in symptoms and then can be discharged to follow-up with [facility] for outpatient evaluation -There does not seem to be indication for transfer for acute intervention, did discuss options with patient of staying here for IV diuresis and follow-up outpatient versus transfer if she strongly desired that, patient prefers to stay here and follow-up outpatient and verbalizes her understanding of this plan, do feel this is reasonable #GERD -Continue PPI # Chronic Atrial Fibrillation -Rate control: Coreg -Anticoagulation: Eliquis -Does have frequent ectopy, continue Coreg and will check mag #Type 2 diabetes mellitus -Glucose checks and sliding scale insulin #Hx COPD/asthma - As needed albuterol -Incentive spirometer #Depression/anxiety -Continue home medications #DVT ppx: Chronically on Eliquis Emily Cummings MD Charges/Coding Visit Charges Inpatient E&M: 67154 Init Hosp L2
--- OUTSIDE RECORDS SUMMARY | 2024-11-09 07:54 | XMS RPT_ITS | CCD ---
Author Organization [facility] CliniSyla Care Team Providers Care Community Resource Officer Name Role Phone Huan Mcdaniel Unavailable Unavailable [...] Attending UnavailHuan Perez MD Primary Care Provider [phone] Huan Mcdaniel MD Unavailable Diana Marcano MA [...] Mukul REHMAN, Huan Patton Primary Care Provider [phone] Mukul REHMAN, Huan Patton Unavailable Carina LUCERO, [...] Provider Dr. Jacinto Munoz DO Other Provider [phone] MARLEEN SIGAAL Attending Unavailable HUAN MCDANIEL Primary Care Unavailable [...] Unavailable Lim OLS, Dominic Primary Care Unavailable Gudla, April Primary Care Unavailable Delgado Gillette Attending Unavailable Gudla, April Primary Care Unavailable Gudla OLS, April Attending Unavailable Prem LUCERO, Delgado Referring Unavailable Prem LUCERO, Delgado [...] sources) venlafaxine; Translations: [Effexor] Drug Allergy Edema [facility] Work Phone: (20 sources) venlafaxine; Translations: [Effexor] Drug Allergy Edema [facility] Work Phone: (5 sources) venlafaxine; Translations: [VENLAFAXINE] Drug Allergy 08-30-2022 [facility] Medications Current Medications Medication Drug Class(es) Dates [...] pain scores based on patient preference? Yes [id number] actuat albuterol 0.09 mg/actuat metered dose [...] 11-11-2023 docusate sodium 50 mg / sennosides, alf 8.6 mg oral tablet (1 source) Start: [...] August discolor urine (orange). polyethylene glycol 3350 66912 mg powder for oral solution (20 sources) [...] once daily at bedtime. 10/15/2023 Active sennosides, alf 8.6 mg oral tablet (6 sources) Start: [...] Start: 10-10-2023 take 1 capsule by mo [facility] once daily 75 mg, oral, Daily, First [...] 2:49pm Start: 07-08-2020 take 1 tablet by [facility] once daily Venlafaxine HCl ER 75 MG Oral Tablet Extended Release 24 Hour Take 1 tablet daily Quantity: 30 Refills: 9 Ordered: 13-Oct-2020 Huan Mcdaniel MD Start : 08-Jul-2020 Active take 1 capsule by [facility] once daily Venlafaxine HCl ER 75 MG Oral Capsule Extended Release 24 Hour TAKE 1 CAPSULE Daily Quantity: 90 Refills: 1 Ordered: 28-Mar-2022 Huan Mcdaneil MD Active (2 sources) Start: 11-19-2023 Start: [...] intravenously every six hours polyethylene glycol 3350 960561 mg / potassium chloride 2970 mg / sodium bicarbonate 6740 mg / sodium chloride 5860 mg / sodium sulfate 68842 mg powder for oral solution (9 sources) [...] 12:00am Start: 12-31-2023 take 2 tablets by [facility] twice daily Sennosides 8.6 mg tablet Active [...] other medications] Episodic Other aftercare (1 source) intermediate (current) use of anticoagulants; Translations: [intermediate (current) use of anticoagulants] Onset: 09-15-2022 Episodic Other aftercare (1 source) meterman (current) use of oral hypoglycemic drugs; Translations: [meterman (current) use of oral hypoglycemic drugs] Onset: 09-15-2022 Episodic Other aftercare (1 source) Other long term care social worker (current) drug therapy; Translations: [Other penitentiary (current) drug therapy] Onset: 10-06-2024 Episodic Other [...] sources) Prescribed medication regimen behavior finding; Translations: [intermediate prescription benzodiazepine use] Unclassified (14 sources) Onset: 3 Resolved: 4 10-13-2022 NEGATED: Highlighted row has not occurred!Residual codes; unclassified (20 sources) Disease Episodic Results Test Name Value Interpretation Reference Range Facility Bedside Glucoseon 10-28-2024 FINGERSTICK GLU 114 mg/dL High 74-106 [facility] Comment on above: Result Comment: ASHU KELLY OF PATIENT CARE PER NURSING PROTOCOL Performed By: #### L 501.080 ####[facility] [address] [place], [address] EGD Reporton 10-28-2024 EGD Report Normal [facility] deOrdered By: Jacinto Friend on 10-28-2024 Glucose [Mass/Vol] 114 mg/dL High 74-106 [facility] Comment on above: MANAGEMENT OF PATIEN T CARE PER NURSING PROTOCOL MR/POSTOP.ANEon 10-28-2024 MR/POSTOP.ANE [facility] MR/IOVXHQFN3xi 10-28-2024 MR/POSTOPAN2 [facility] MR/PAT.ANEon 10-21-2024 MR/PAT.ANE [facility] Cardiology Visit Reporton Cardiology Visit Report [facility] CNPNon 09-19-2024 [place] Telephone (AGCARDPOB ) -------- DARYN SHAH ([id number]) 1945 F Date Time Provider Department 09/19/24 [...] OM, OA, GIB, PUD, COPD. Resides at [facility] since 6 months ago. Wheelchair bound, does stand for brief transfers with assist. Notes she gave up will to live about 5 years ago due to frustrations with family situations, and just had gradual debilitation. 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 Of note rivaraxoban was stopped prior due [...] 40? 1+ AI EF 40-45% Laurent Garza APRN.HEAD SCORER Allergies As of Date: 09/19/2024 (Not on File) Date Reviewed: Never Reviewed Problem List As Of Date: 09/19/2024 (None) Encounter Status:Closed by LAURENT GARZA on 09/19/24 [facility] CNPN Telephone (AGCARDPOB ) -------- ALYSSADARYNHARSHIL ARGUELLES ([id number]) 1945 F Date Time Provider Department 09/19/24 [...] OM, OA, GIB, PUD, COPD. Resides at [facility] since 6 months ago. Wheelchair bound, does stand for brief transfers with assist. Notes she gave up will to live about 5 years ago due to frustrations with family situations, and just had gradual debilitation. 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 Of note rivaraxoban was stopped prior due [...] 40? 1+ AI EF 40-45% Laurent Garza APRN.HEAD SCORER Gamaliel Tilley MA 09/19/2024 4:07 PM Signed Spoke with nurse at [facility] [phone], [phone]. They're unable to arrange transportation for 09/24/24 office visit and reschedule to 11/12/24 10:30am. I faxed appt reminder with our address on it to [phone]. Allergies As of Date: 09/19/2024 (Not on File) Date Reviewed: Never Reviewed Problem List As Of Date: 09/19/2024 (None) Encounter Status:Closed by LAURENT GARZA on 09/19/24 [facility] Andreina 09-17-2024 CNPN Telephone (AG[employer]essixACC) -------- DARYN SHAH ([id number]) 1945 F Date Time Provider Department 09/17/24 LAURENT GARZA During your visit today, we recorded the following information about you: Pearl Dutta 09/17/2024 3:50 PM Signed Referral received and scanned to chart. Fax request was sent to [facility] requesting images and reports. A message was also sent to Laurent Garza CNP in regards to the referral. Non-rheumatic aortic valve stenosis (possible TAVR candidate). Allergies As of Date: 09/17/2024 (Not on File) Date Reviewed: Never Reviewed Reason for Visit: Appointment [186] Cmt: Appointment Problem List As Of Date: 09/17/2024 (None) Encounter Status:Closed by PEARL DUTTA on 09/17/24 [facility] CNPN Telephone ([employer]) -------- DARYN SHAH ([id number]) 1945 F Date Time Provider Department 09/17/24 LAURENT GARZA During your visit today, we recorded the following information about you: Pearl Dutta 09/17/2024 3:50 PM Signed Referral received and scanned to chart. Fax request was sent to [facility] requesting images and reports. A message was [...] Encounter Status:Closed by PEARL DUTTA on 09/17/24 [facility] Anion gap in Serum or Plasma Ordered By: Delgado Amaro on 09-16-2024 Anion gap [Moles/Vol] 12 mmol/L 5-15 [facility] BUN/creatinine ratioOrdered By: Delgado Amaro on 09-16-2024 Urea nitrogen/Creatinine [Mass ratio] 23.1 mg/mg High 01-26 [facility] Basic Metabolic Profile (BMP )on 09-16-2024 BUN/CRE 23.1 RATIO High 01-26 [facility] Comment on above: Order Comment: 503.2 Performed By: #### L 100.0500, L500.2500 ####[facility] [address] [place], [address] Calcium [Mass/Vol] 9.1 mg/dL Normal 7.6-11.0 [facility] Comment on above: Order Comment: 503.2 Performed By: #### L 100.0500, L500.2500 ####[facility] [address] [place], [address] Chloride [Moles/Vol] 99 mmol/L Normal 98-108 [facility] Comment on above: Order Comment: 503.2 Performed By: #### L 100.0500, L500.2500 ####[facility] [address] [place], [address] CO2 [Moles/Vol] 27.1 mmol/L Normal 21.0-32.0 [facility] Comment on above: Order Comment: 503.2 Performed By: #### L 100.0500, L500.2500 ####[facility] [address] [place], [address] Creatinine [Mass/Vol] 1.19 mg/dL Normal 0.70-1.20 [facility] Comment on above: Order Comment: 503.2 Performed By: #### L 100.0500, L500.2500 ####[facility] [address] [place], [address] GAP 12 Normal - [facility] Comment on above: Order Comment: 503.2 Performed By: #### L 100.0500, L500.2500 ####[facility] [address] [place], [address] GFR/1.73 sq M.predicted among non-blacks MDRD (S/P/Bld) [Vol rate/Area] 47 mL/min/{1.73_m2} Low >60 [facility] Comment on above: Order Comment: 503.2 Result Comment: mL/m in/1.73m2 CKD-EPI Creatinine Equation (2020) Performed By: #### L 100.0500, L500.2500 ####[facility] [address] [place], [address] Glucose [Mass/Vol] 98 mg/dL Normal 70-99 [facility] Comment on above: Order Comment: 503.2 Performed By: #### L 100.0500, L500.2500 ####[facility] [address] [place], [address] Potassium [Moles/Vol] 4.3 mmol/L Normal 3.3-5.1 [facility] Comment on above: Order Comment: 503.2 Performed By: #### L 100.0500, L500.2500 ####[facility] [address] [place], [address] Sodium [Moles/Vol] 138 mmol/L Normal 133-145 [facility] Comment on above: Order Comment: 503.2 Performed By: #### L 100.0500, L500.2500 ####[facility] [address] [place], [address] Urea nitrogen [Mass/Vol] 28 mg/dL High 4-19 [facility] Comment on above: Order Comment: 503.2 Performed By: #### L 100.0500, L500.2500 ####[facility] [address] [place], [address] CBC-Complete Blood Cnt No Di ffon 09-16-2024 Erythrocyte distribution width (RBC) [Ratio] 15.1 % High 11.6-14.6 [facility] Comment on above: Order Comment: 503.2 Performed By: #### L 100.0500, L500.2500 ####[facility] [address] [place], [address] Hematocrit (Bld) [Volume fraction] 30.9 % Low 37-47 [facility] Comment on above: Order Comment: 503.2 Performed By: #### L 100.0500, L500.2500 ####[facility] [address] [place], [address] Hemoglobin (Bld) [Mass/Vol] 9.4 g/dL Low 12.0-15.0 [facility] Comment on above: Order Comment: 503.2 Performed By: #### L 100.0500, L500.2500 ####[facility] [address] [place], [address] MCH (RBC) [Entitic mass] 26.4 pg Low 27.0-32.0 [facility] Comment on above: Order Comment: 503.2 Performed By: #### L 100.0500, L500.2500 ####[facility] [address] [place], [address] MCHC (RBC) [Mass/Vol] 30.4 g/dL Low 32-36 [facility] Comment on above: Order Comment: 503.2 Performed By: #### L 100.0500, L500.2500 ####[facility] [address] [place], [address] MCV (RBC) [Entitic vol] 86.8 fL Normal 81-99 [facility] Comment on above: Order Comment: 503.2 Performed By: #### L 100.0500, L500.2500 ####[facility] [address] [place], [address] Platelet mean volume (Bld) [Entitic vol] 9.7 fL Normal 6.2-12.0 [facility] Comment on above: Order Comment: 503.2 Performed By: #### L 100.0500, L500.2500 ####[facility] [address] [place], [address] Platelets (Bld) [#/Vol] 203 10*3/uL Normal 150-450 [facility] Comment on above: Order Comment: 503.2 Performed By: #### L 100.0500, L500.2500 ####[facility] [address] [place], [address] RBC (Bld) [#/Vol] 3.56 10*6/uL Low 4.2-5.4 [facility] Comment on above: Order Comment: 503.2 Performed By: #### L 100.0500, L500.2500 ####[facility] [address] [place], [address] RDW SD 48.3 fl High 35.1-43.9 [facility] Comment on above: Order Comment: 503.2 Performed By: #### L 100.0500, L500.2500 ####[facility] [address] [place], [address] WBC (Bld) [#/Vol] 7.6 10*3/uL Normal 4.4-11.0 [facility] Comment on above: Order Comment: 503.2 Performed By: #### L 100.0500, L500.2500 ####[facility] [address] [place], [address] Carbon dioxide, total [Moles /volume] in Central venous bloodOrdered By: Delgado Amaro on 09-16-2024 CO2 [Moles/Vol] 27.1 mmol/L 21.0-32.0 [facility] Chloride assayOrdered By: Kade Amaro on 09-16-2024 Chloride [Moles/Vol] 99 mmol/L 98-108 [facility] Erythrocyte distribution wid th ratioOrdered By: Delgado Amaro on 09-16-2024 Erythrocyte distribution width (RBC) [Ratio] 15.1 % High 11.6-14.6 [facility] Erythrocyte distribution wid th standard deviationOrdered By: Delgado Amaro on 09-16-2024 Erythrocyte distribution width (RBC) [Ratio] 48.3 fl High 35.1-43.9 [facility] Glomerular filtration rate ( GFR) estimation/1.73 sq m using serum, plasma, or whole bOrdered By: Delgado Amaro on 09-16-2024 GFR/1.73 sq M.predicted among non-blacks MDRD (S/P/Bld) [Vol rate/Area] 47 mL/min/{1.73_m2} Low >60 [facility] Comment on above: mL/min/1.73m2 CKD-EP I Creatinine Equation (2020) Hematocrit Auto (Bld) [Volum e fraction]Ordered By: Delgado Amaro on 09-16-2024 Hematocrit (Bld) [Volume fraction] 30.9 % Low 37-47 [facility] Hemoglobin measurementOrdere d By: Delgado Amaro on 09-16-2024 Hemoglobin (Bld) [Mass/Vol] 9.4 g/dL Low 12.0-15.0 [facility] MCV (mean corpuscular volume ) determinationOrdered By: Delgado Amaro on 09-16-2024 MCV (RBC) [Entitic vol] 86.8 fL 81-99 [facility] Mean corpuscular hemoglobin (MCH) determinationOrdered By: Delgado Amaro on 09-16-2024 MCH (RBC) [Entitic mass] 26.4 pg Low 27.0-32.0 [facility] Mean corpuscular hemoglobin concentration (MCHC) determinationOrdered By: Delgado Amaro on 09-16-2024 MCHC (RBC) [Mass/Vol] 30.4 g/dL Low 32-36 [facility] Mean platelet volume determi nationOrdered By: Delgado Amaro on 09-16-2024 Platelet mean volume (Bld) [Entitic vol] 9.7 fL 6.2-12.0 [facility] Platelet countOrdered By: Kade Amaro on 09-16-2024 Platelets (Bld) [#/Vol] 203 10*3/uL 150-450 [facility] Potassium measurement (mass/ volume)Ordered By: Delgado Amaro on 09-16-2024 Potassium (Unsp spec) [Mass/Vol] 4.3 mmol/L 3.3-5.1 [facility] RBC Auto (Bld) [#/Vol]Ordere d By: Delgado Amaro on 09-16-2024 RBC (Bld) [#/Vol] 3.56 10*6/uL Low 4.2-5.4 [facility] Serum creatinine measurement (mass/volume)Ordered By: Delgado Amaro on 09-16-2024 Creatinine [Mass/Vol] 1.19 mg/dL 0.70-1.20 [facility] Serum glucose measurement (m ass/volume)Ordered By: Delgado Amaro on 09-16-2024 Glucose [Mass/Vol] 98 mg/dL 70-99 [facility] Serum or plasma calcium kay urement (mass/volume)Ordered By: Delgado Amaro on 09-16-2024 Calcium [Mass/Vol] 9.1 mg/dL 7.6-11.0 [facility] Serum or plasma urea nitroge n measurement (mass/volume)Ordered By: Delgado Amaro on 09-16-2024 Urea nitrogen [Mass/Vol] 28 mg/dL High 4- [facility] Sodium levelOrdered By: Dimitry Amaro on 09-16-2024 Sodium [Moles/Vol] 138 mmol/L 133-145 [facility] White blood cell (WBC) count Ordered By: Delgado Amaro on 09-16-2024 WBC (Bld) [#/Vol] 7.6 10*3/uL 4.4-11.0 [facility] Anion gap in Serum or Plasma Ordered By: Delgado Amaro on 08-19-2024 Anion gap [Moles/Vol] 10 mmol/L - [facility] BUN/creatinine ratioOrdered By: Delgado Amaro on 08-19-2024 Urea nitrogen/Creatinine [Mass ratio] 19.0 mg/mg - [facility] Basic Metabolic Profile (BMP )on 08-19-2024 BUN/CRE 19.0 RATIO Normal - [facility] Comment on above: Order Comment: 503.2 Performed By: #### L 500.2500, L100.0500 ####[facility] [address] [place], [address] Calcium [Mass/Vol] 9.7 mg/dL Normal 7.6-11.0 [facility] Comment on above: Order Comment: 503.2 Performed By: #### L 500.2500, L100.0500 ####[facility] [address] [place], [address] Chloride [Moles/Vol] 100 mmol/L Normal 98-108 [facility] Comment on above: Order Comment: 503.2 Performed By: #### L 500.2500, L100.0500 ####[facility] [address] [place], [address] CO2 [Moles/Vol] 27.5 mmol/L Normal 21.0-32.0 [facility] Comment on above: Order Comment: 503.2 Performed By: #### L 500.2500, L100.0500 ####[facility] [address] [place], [address] Creatinine [Mass/Vol] 1.15 mg/dL Normal 0.70-1.20 [facility] Comment on above: Order Comment: 503.2 Performed By: #### L 500.2500, L100.0500 ####[facility] [address] [place], [address] GAP 10 Normal 5-15 [facility] Comment on above: Order Comment: 503.2 Performed By: #### L 500.2500, L100.0500 ####[facility] [address] [place], [address] GFR/1.73 sq M.predicted among non-blacks MDRD (S/P/Bld) [Vol rate/Area] 49 mL/min/{1.73_m2} Low >60 [facility] Comment on above: Order Comment: 503.2 Result Comment: mL/m in/1.73m2 CKD-EPI Creatinine Equation (2020) Performed By: #### L 500.2500, L100.0500 ####[facility] [address] [place], [address] Glucose [Mass/Vol] 101 mg/dL High 70-99 [facility] Comment on above: Order Comment: 503.2 Performed By: #### L 500.2500, L100.0500 ####[facility] [address] [place], [address] Potassium [Moles/Vol] 4.4 mmol/L Normal 3.3-5.1 [facility] Comment on above: Order Comment: 503.2 Result Comment: Hemo lysis present, Results??could be affected.?? Performed By: #### L 500.2500, L100.0500 ####[facility] [address] [place], [address] Sodium [Moles/Vol] 138 mmol/L Normal 133-145 [facility] Comment on above: Order Comment: 503.2 Performed By: #### L 500.2500, L100.0500 ####[facility] [address] [place], [address] Urea nitrogen [Mass/Vol] 22 mg/dL High 4-19 [facility] Comment on above: Order Comment: 503.2 Performed By: #### L 500.2500, L100.0500 ####[facility] [address] [place], [address] CBC-Complete Blood Cnt No Di ffon 08-19-2024 Erythrocyte distribution width (RBC) [Ratio] 15.9 % High 11.6-14.6 [facility] Comment on above: Order Comment: 503.2 Performed By: #### L 500.2500, L100.0500 ####[facility] [address] [place], [address] Hematocrit (Bld) [Volume fraction] 35.6 % Low 37-47 [facility] Comment on above: Order Comment: 503.2 Performed By: #### L 500.2500, L100.0500 ####[facility] [address] [place], [address] Hemoglobin (Bld) [Mass/Vol] 11.6 g/dL Low 12.0-15.0 [facility] Comment on above: Order Comment: 503.2 Performed By: #### L 500.2500, L100.0500 ####[facility] [address] [place], [address] MCH (RBC) [Entitic mass] 28.4 pg Normal 27.0-32.0 [facility] Comment on above: Order Comment: 503.2 Performed By: #### L 500.2500, L100.0500 ####[facility] [address] [place], [address] MCHC (RBC) [Mass/Vol] 32.6 g/dL Normal 32-36 [facility] Comment on above: Order Comment: 503.2 Performed By: #### L 500.2500, L100.0500 ####[facility] [address], [address] MCV (RBC) [Entitic vol] 87.0 fL Normal 81-99 [facility] Comment on above: Order Comment: 503.2 Performed By: #### L 500.2500, L100.0500 ####[facility] [address] [place], [address] Platelet mean volume (Bld) [Entitic vol] 9.5 fL Normal 6.2-12.0 [facility] Comment on above: Order Comment: 503.2 Performed By: #### L 500.2500, L100.0500 ####[facility] [address] [place], [address] Platelets (Bld) [#/Vol] 180 10*3/uL Normal 150-450 [facility] Comment on above: Order Comment: 503.2 Performed By: #### L 500.2500, L100.0500 ####[facility] [address] [place], [address] RBC (Bld) [#/Vol] 4.09 10*6/uL Low 4.2-5.4 [facility] Comment on above: Order Comment: 503.2 Performed By: #### L 500.2500, L100.0500 ####[facility] [address] [place], [address] RDW SD 50.2 fl High 35.1-43.9 [facility] Comment on above: Order Comment: 503.2 Performed By: #### L 500.2500, L100.0500 ####[facility] [address] [place], [address] WBC (Bld) [#/Vol] 6.4 10*3/uL Normal 4.4-11.0 [facility] Comment on above: Order Comment: 503.2 Performed By: #### L 500.2500, L100.0500 ####[facility] [address] [place], [address] Carbon dioxide, total [Moles /volume] in Central venous bloodOrdered By: Delgado Amaro on 08-19-2024 CO2 [Moles/Vol] 27.5 mmol/L 21.0-32.0 [facility] Chloride assayOrdered By: Kade Amaro on 08-19-2024 Chloride [Moles/Vol] 100 mmol/L 98-108 [facility] Erythrocyte distribution wid th ratioOrdered By: Delgado Amaro on 08-19-2024 Erythrocyte distribution width (RBC) [Ratio] 15.9 % High 11.6-14.6 [facility] Erythrocyte distribution wid th standard deviationOrdered By: Delgado Amaro on 08-19-2024 Erythrocyte distribution width (RBC) [Ratio] 50.2 fl High 35.1-43.9 [facility] Glomerular filtration rate ( GFR) estimation/1.73 sq m using serum, plasma, or whole bOrdered By: Delgado Amaro on 08-19-2024 GFR/1.73 sq M.predicted among non-blacks MDRD (S/P/Bld) [Vol rate/Area] 49 mL/min/{1.73_m2} Low >60 [facility] Comment on above: mL/min/1.73m2 CKD-EP I Creatinine Equation (2020) Hematocrit Auto (Bld) [Volum e fraction]Ordered By: Delgado Amaro on 08-19-2024 Hematocrit (Bld) [Volume fraction] 35.6 % Low 37-47 [facility] Hemoglobin measurementOrdere d By: Delgado Amaro on 08-19-2024 Hemoglobin (Bld) [Mass/Vol] 11.6 g/dL Low 12.0-15.0 [facility] MCV (mean corpuscular volume ) determinationOrdered By: Delgado Amaro on 08-19-2024 MCV (RBC) [Entitic vol] 87.0 fL 81-99 [facility] Mean corpuscular hemoglobin (MCH) determinationOrdered By: Delgado Amaro on 08-19-2024 MCH (RBC) [Entitic mass] 28.4 pg 27.0-32.0 [facility] Mean corpuscular hemoglobin concentration (MCHC) determinationOrdered By: Delgado Amaro on 08-19-2024 MCHC (RBC) [Mass/Vol] 32.6 g/dL 32-36 [facility] Mean platelet volume determi nationOrdered By: Delgado Amaro on 08-19-2024 Platelet mean volume (Bld) [Entitic vol] 9.5 fL 6.2-12.0 [facility] Platelet countOrdered By: Kade Amaro on 08-19-2024 Platelets (Bld) [#/Vol] 180 10*3/uL 150-450 [facility] Potassium measurement (mass/ volume)Ordered By: Delgado Amaro on 08-19-2024 Potassium (Unsp spec) [Mass/Vol] 4.4 mmol/L 3.3-5.1 [facility] Comment on above: Hemolysis present, R esults could be affected. RBC Auto (Bld) [#/Vol]Ordere d By: Delgado Amaro on 08-19-2024 RBC (Bld) [#/Vol] 4.09 10*6/uL Low 4.2-5.4 [facility] Serum creatinine measurement (mass/volume)Ordered By: Delgado Amaro on 08-19-2024 Creatinine [Mass/Vol] 1.15 mg/dL 0.70-1.20 [facility] Serum glucose measurement (m ass/volume)Ordered By: Delgado Amaro on 08-19-2024 Glucose [Mass/Vol] 101 mg/dL High 70-99 [facility] Serum or plasma calcium kay urement (mass/volume)Ordered By: Delgado Amaro on 08-19-2024 Calcium [Mass/Vol] 9.7 mg/dL 7.6-11.0 [facility] Serum or plasma urea nitroge n measurement (mass/volume)Ordered By: Delgado Amaro on 08-19-2024 Urea nitrogen [Mass/Vol] 22 mg/dL High 4-19 [facility] Sodium levelOrdered By: Dimitry Amaro on 08-19-2024 Sodium [Moles/Vol] 138 mmol/L 133-145 [facility] White blood cell (WBC) count Ordered By: Delgado Amaro on 08-19-2024 WBC (Bld) [#/Vol] 6.4 10*3/uL 4.4-11.0 [facility] Cardiovascular stress test r eportOrdered By: Henri Pedraza on 08-13-2024 Study report [facility] [address] [place] [address] MR#: [id number] Acct: [id number] Name: DARYN SHAH Rep #: [id number] : 1945 78 From: Henri Pedraza [...] of 34%. This note was generated with [employer] software. It may contain incorrectwords, spelling, and punctuation that were not noted in checking the note beforesigning. 08/13/24 104 Date _ Henri Pedraza MD CC: Dr. Henri Pedraza MD; April Mullen MD ~ Date Dictated: 08/13/24 104 Date Transcribed: 08/13/241040 Obedience Trainer: ROGER Sterling [facility] Work Phone: Echo Completeon 08-13-2024 Echo Complete Normal [facility] Echocardiogram study reportO rdered By: Henri Pedraza on 08-13-2024 Study report [facility] [place] [address] Echo Complete 08/13/24 1000 MR#: [id number] Acct: [id number] Name: DARYN SHAH Rep #:[id number] 2 : 1945 78 From: Henri Pedraza MD Attending Dr: Dr. Henri Pedraza MD Status: REG CLI Ordering Dr: Henri Pedraza MD Date: Location: [facility] Sex: F C Admitted: Reason For Study [...] Dictated: 08/13/24 1000 Date Transcribed: 08/13/24 115 Obedience Trainer: Signed [facility] Work Phone: Stress Reporton 08-13-2024 Stress Report Normal [facility] Gastroenterology Visit Repor ton 07-31-2024 Gastroenterology Visit Report Normal [facility] 12 Lead EKG performed by BMS on 07-23-2024 12 Lead EKG performed by [facility] Normal [facility] Cardiology Visit Reporton Cardiology Visit Report Normal [facility] Anion gap in Serum or Plasma Ordered By: Delgado Amaro on 07-22-2024 Anion gap [Moles/Vol] 10 mmol/L 08-21 [facility] Automated blood erythrocyte countOrdered By: Delgado Amaro on 07-22-2024 RBC (Bld) [#/Vol] 4.28 10*6/uL Normal 4.2-5.4 [facility] Comment on above: Order Comment: 503.2 Performed By: #### L 500.2500, L100.0500 ####[facility] [address] [place], [address] Automated blood hematocrit ( percentage)Ordered By: Delgado Amaro on 07-22-2024 Hematocrit (Bld) [Volume fraction] 35.6 % Low 37-47 [facility] Comment on above: Order Comment: 503.2 Performed By: #### L 500.2500, L100.0500 ####[facility] [address] [place], [address] BUN/creatinine ratioOrdered By: Delgado Amaro on 07-22-2024 Urea nitrogen/Creatinine [Mass ratio] 16.8 mg/mg 10-20 [facility] Basic Metabolic Profile (BMP )on 07-22-2024 BUN/CRE 16.8 RATIO Normal 10-20 [facility] Comment on above: Order Comment: 503.2 Performed By: #### L 500.2500, L100.0500 ####[facility] [address] [place], [address] GAP 10 Normal 5-15 [facility] Comment on above: Order Comment: 503.2 Performed By: #### L 500.2500, L100.0500 ####[facility] [address] [place], [address] Potassium [Moles/Vol] 3.9 mmol/L Normal 3.3-5.1 [facility] Comment on above: Order Comment: 503.2 Performed By: #### L 500.2500, L100.0500 ####[facility] [address] [place], [address] CBC-Complete Blood Cnt No Di ffon 07-22-2024 RDW SD 55.6 fl High 35.1-43.9 [facility] Comment on above: Order Comment: 503.2 Performed By: #### L 500.2500, L100.0500 ####[facility] [address] [place], [address] Carbon dioxide, total [Moles /volume] in Central venous bloodOrdered By: Delgado Amaro on 07-22-2024 CO2 [Moles/Vol] 28.7 mmol/L Normal 21.0-32.0 [facility] Comment on above: Order Comment: 503.2 Performed By: #### L 500.2500, L100.0500 ####[facility] [address] [place], [address] Chloride assayOrdered By: Kade Amaro on 07-22-2024 Chloride [Moles/Vol] 102 mmol/L Normal 98-108 [facility] Comment on above: Order Comment: 503.2 Performed By: #### L 500.2500, L100.0500 ####[facility] [address] [place], [address] Erythrocyte distribution wid th ratioOrdered By: Delgado Amaro on 07-22-2024 Erythrocyte distribution width (RBC) [Ratio] 18.2 % High 11.6-14.6 [facility] Comment on above: Order Comment: 503.2 Performed By: #### L 500.2500, L100.0500 ####[facility] [address] [place], [address] Erythrocyte distribution wid th standard deviationOrdered By: Delgado Amaro on 07-22-2024 Erythrocyte distribution width (RBC) [Ratio] 55.6 fl High 35.1-43.9 [facility] Glomerular filtration rate ( GFR) estimation/1.73 sq m using serum, plasma, or whole bOrdered By: Delgado Amaro on 07-22-2024 GFR/1.73 sq M.predicted among non-blacks MDRD (S/P/Bld) [Vol rate/Area] 47 mL/min/{1.73_m2} Low >60 [facility] Comment on above: mL/min/1.73m2 CKD-EP I Creatinine Equation (2020) Order Comment: 503.2 Result Comment: mL/m in/1.73m2 CKD-EPI Creatinine Equation (2020) Performed By: #### L 500.2500, L100.0500 ####[facility] [address] [place], [address] Hemoglobin measurementOrdere d By: Delgado Amaro on 07-22-2024 Hemoglobin (Bld) [Mass/Vol] 11.4 g/dL Low 12.0-15.0 [facility] Comment on above: Order Comment: 503.2 Performed By: #### L 500.2500, L100.0500 ####[facility] [address] [place], [address] MCV (mean corpuscular volume ) determinationOrdered By: Delgado Amaro on 07-22-2024 MCV (RBC) [Entitic vol] 83.2 fL Normal 81-99 [facility] Comment on above: Order Comment: 503.2 Performed By: #### L 500.2500, L100.0500 ####[facility] [address] [place], [address] Mean corpuscular hemoglobin (MCH) determinationOrdered By: Delgado Amaro on 07-22-2024 MCH (RBC) [Entitic mass] 26.6 pg Low 27.0-32.0 [facility] Comment on above: Order Comment: 503.2 Performed By: #### L 500.2500, L100.0500 ####[facility] [address] [place], [address] Mean corpuscular hemoglobin concentration (MCHC) determinationOrdered By: Delgado Amaro on 07-22-2024 MCHC (RBC) [Mass/Vol] 32.0 g/dL Normal 32-36 [facility] Comment on above: Order Comment: 503.2 Performed By: #### L 500.2500, L100.0500 ####[facility] [address] [place], [address] Mean platelet volume determi nationOrdered By: Delgado Amaro on 07-22-2024 Platelet mean volume (Bld) [Entitic vol] 9.2 fL Normal 6.2-12.0 [facility] Comment on above: Order Comment: 503.2 Performed By: #### L 500.2500, L100.0500 ####[facility] [address] [place], [address] Platelet countOrdered By: Kade Amaro on 07-22-2024 Platelets (Bld) [#/Vol] 159 10*3/uL Normal 150-450 [facility] Comment on above: Order Comment: 503.2 Performed By: #### L 500.2500, L100.0500 ####[facility] [address] [place], [address] Potassium measurement (mass/ volume)Ordered By: Delgado Amaro on 07-22-2024 Potassium (Unsp spec) [Mass/Vol] 3.9 mmol/L 3.3-5.1 [facility] Serum creatinine measurement (mass/volume)Ordered By: Delgado Amaro on 07-22-2024 Creatinine [Mass/Vol] 1.19 mg/dL Normal 0.70-1.20 [facility] Comment on above: Order Comment: 503.2 Performed By: #### L 500.2500, L100.0500 ####[facility] [address] [place], [address] Serum glucose measurement (m ass/volume)Ordered By: Delgado Amaro on 07-22-2024 Glucose [Mass/Vol] 82 mg/dL Normal 70-99 [facility] Comment on above: Order Comment: 503.2 Performed By: #### L 500.2500, L100.0500 ####[facility] [address] [place], [address] Serum or plasma calcium kay urement (mass/volume)Ordered By: Delgado Amaro on 07-22-2024 Calcium [Mass/Vol] 9.2 mg/dL Normal 7.6-11.0 [facility] Comment on above: Order Comment: 503.2 Performed By: #### L 500.2500, L100.0500 ####[facility] [address] [place], [address] Serum or plasma urea nitroge n measurement (mass/volume)Ordered By: Delgado Amaro on 07-22-2024 Urea nitrogen [Mass/Vol] 20 mg/dL High 4-19 [facility] Comment on above: Order Comment: 503.2 Performed By: #### L 500.2500, L100.0500 ####[facility] [address] [place], [address] Sodium levelOrdered By: Dimitry Amaro on 07-22-2024 Sodium [Moles/Vol] 141 mmol/L Normal 133-145 [facility] Comment on above: Order Comment: 503.2 Performed By: #### L 500.2500, L100.0500 ####[facility] [address] [place], [address] White blood cell (WBC) count Ordered By: Delgado Amaro on 07-22-2024 WBC (Bld) [#/Vol] 6.9 10*3/uL Normal 4.4-11.0 [facility] Comment on above: Order Comment: 503.2 Performed By: #### L 500.2500, L100.0500 ####[facility] [address] [place], [address] Bedside Glucoseon 07-01-2024 FINGERSTICK GLU 62 mg/dL Low 74-106 [facility] Comment on above: Result Comment: ASHU KELLY OF PATIENT CARE PER NURSING PROTOCOL Performed By: #### L 501.080 ####[facility] [address] [place], [address] Colonoscopy Reporton 025 Colonoscopy Report Normal [facility] EGD Reporton 07-01-2024 EGD Report Normal [facility] deOrdered By: Jacinto Munoz on 07-01-2024 Bedside Glucose (Misc Panel) 62 mg/dL Low 74-106 [facility] Comment on above: MANAGEMENT OF PATIEN T CARE PER NURSING PROTOCOL Glucose [Mass/Vol] 62 mg/dL Low 74-106 [facility] Comment on above: MANAGEMENT OF PATIEN T CARE PER NURSING PROTOCOL MR/POSTOP.ANEon 07-01-2024 MR/POSTOP.ANE Normal [facility] MR/[id number] 07-01-2024 MR/POSTOPAN2 Normal [facility] Surgery Specimen Level Lon 07-01-2024 Surgery Specimen Level IV Normal [facility] Comment on above: Performed By: #### P SUIV ####[facility] [address] [place], [address] MR/PAT.ANEon 06-30-2024 MR/PAT.ANE Normal [facility] Anion gap in Serum or Plasma Ordered By: Delgado Amaro on 06-24-2024 Anion gap [Moles/Vol] 11 mmol/L 08-21 [facility] Automated blood erythrocyte countOrdered By: Delgado Amaro on 06-24-2024 RBC (Bld) [#/Vol] 4.14 10*6/uL Low 4.2-5.4 [facility] Comment on above: Order Comment: 503.2 Performed By: #### L 100.0500, L500.2500, L100.4500 ####[facility] [address], [address] Automated blood hematocrit ( percentage)Ordered By: Delgado Amaro on 06-24-2024 Hematocrit (Bld) [Volume fraction] 32.9 % Low 37-47 [facility] Comment on above: Order Comment: 503.2 Performed By: #### L 100.0500, L500.2500, L100.4500 ####[facility] [address] [place], [address] BUN/creatinine ratioOrdered By: Delgado Amaro on 06-24-2024 Urea nitrogen/Creatinine [Mass ratio] 18.1 mg/mg 01-26 [facility] Basic Metabolic Profile (BMP )on 06-24-2024 BUN/CRE 18.1 RATIO Normal 01-26 [facility] Comment on above: Order Comment: 503.2 Performed By: #### L 100.0500, L500.2500, L100.4500 ####[facility] [address] [place], [address] GAP 11 Normal 08-21 [facility] Comment on above: Order Comment: 503.2 Performed By: #### L 100.0500, L500.2500, L100.4500 ####[facility] [address] [place], [address] Blood manual differential co mment interpretation (narrative result)Ordered By: Delgado Amaro on 06-24-2024 Manual differential comment Jd (Bld) [Interp] COMMENT [facility] Comment on above: 1+ ANISO. CBC-Complete Blood Cnt No Di ffon 06-24-2024 RDW SD 57.4 fl High 35.1-43.9 [facility] Comment on above: Order Comment: 503.2 Performed By: #### L 100.0500, L500.2500, L100.4500 ####[facility] [address] [place], [address] Carbon dioxide, total [Moles /volume] in Central venous bloodOrdered By: Delgado Amaro on 06-24-2024 CO2 [Moles/Vol] 26.3 mmol/L Normal 21.0-32.0 [facility] Comment on above: Order Comment: 503.2 Performed By: #### L 100.0500, L500.2500, L100.4500 ####[facility] [address] [place], [address] Chloride assayOrdered By: Kade Amaro on 06-24-2024 Chloride [Moles/Vol] 103 mmol/L Normal 98-108 [facility] Comment on above: Order Comment: 503.2 Performed By: #### L 100.0500, L500.2500, L100.4500 ####[facility] [address] [place], [address] Differential Commenton 06-24 SMEAR COMMENT COMMENT Normal [facility] Comment on above: Order Comment: 503.2 Result Comment: 1+ A NISO. Performed By: #### L 100.0500, L500.2500, L100.4500 ####[facility] [address] [place], [address] Erythrocyte distribution wid th ratioOrdered By: Delgado Amaro on 06-24-2024 Erythrocyte distribution width (RBC) [Ratio] 20.1 % High 11.6-14.6 [facility] Comment on above: Order Comment: 503.2 Performed By: #### L 100.0500, L500.2500, L100.4500 ####[facility] [address] [place], [place], [address] Erythrocyte distribution wid th standard deviationOrdered By: Delgado Amaro on 06-24-2024 Erythrocyte distribution width (RBC) [Entitic vol] 57.4 fL High 35.1-43.9 [facility] Erythrocyte distribution width (RBC) [Ratio] 57.4 fl High 35.1-43.9 [facility] GFR/1.73 sq M.predicted tanner g non-blacks MDRD (S/P/Bld) [Vol rate/Area]Ordered By: Delgado Amaro on 06-24-2024 Estimated GFR (MDRD) Non-Af Amer 49 Low >60 [facility] Comment on above: mL/min/1.73m2 CKD-EP I Creatinine Equation (2020) Glomerular filtration rate ( GFR) estimation/1.73 sq m using serum, plasma, or whole bOrdered By: Delgado Amaro on 06-24-2024 GFR/1.73 sq M.predicted among non-blacks MDRD (S/P/Bld) [Vol rate/Area] 49 mL/min/{1.73_m2} Low >60 [facility] Comment on above: mL/min/1.73m2 CKD-EP I Creatinine Equation (2020) Order Comment: 503.2 Result Comment: mL/m in/1.73m2 CKD-EPI Creatinine Equation (2020) Performed By: #### L 100.0500, L500.2500, L100.4500 ####[facility] [address] [place], [place], [address] Hemoglobin measurementOrdere d By: Delgado Amaro on 06-24-2024 Hemoglobin (Bld) [Mass/Vol] 10.3 g/dL Low 12.0-15.0 [facility] Comment on above: Order Comment: 503.2 Performed By: #### L 100.0500, L500.2500, L100.4500 ####[facility] [address] [place], [address] MCV (mean corpuscular volume ) determinationOrdered By: Delgado Amaro on 06-24-2024 MCV (RBC) [Entitic vol] 79.5 fL Low 81-99 [facility] Comment on above: Order Comment: 503.2 Performed By: #### L 100.0500, L500.2500, L100.4500 ####[facility] [address] [place], [address] Manual differential comment Jd (Bld) [Interp]Ordered By: Delgado Amaro on 06-24-2024 Differential Comment COMMENT [facility] Comment on above: 1+ ANISO. Mean corpuscular hemoglobin (MCH) determinationOrdered By: Delgado Amaro on 06-24-2024 MCH (RBC) [Entitic mass] 24.9 pg Low 27.0-32.0 [facility] Comment on above: Order Comment: 503.2 Performed By: #### L 100.0500, L500.2500, L100.4500 ####[facility] [address] [place], [address] Mean corpuscular hemoglobin concentration (MCHC) determinationOrdered By: Delgado Amaro on 06-24-2024 MCHC (RBC) [Mass/Vol] 31.3 g/dL Low 32-36 [facility] Comment on above: Order Comment: 503.2 Performed By: #### L 100.0500, L500.2500, L100.4500 ####[facility] [address] [place], [address] Mean platelet volume determi nationOrdered By: Delgado Amaro on 06-24-2024 Platelet mean volume (Bld) [Entitic vol] 9.4 fL Normal 6.2-12.0 [facility] Comment on above: Order Comment: 503.2 Performed By: #### L 100.0500, L500.2500, L100.4500 ####[facility] [address] [place], [address] Platelet countOrdered By: Kade Amaro on 06-24-2024 Platelets (Bld) [#/Vol] 137 10*3/uL Low 150-450 [facility] Comment on above: Order Comment: 503.2 Performed By: #### L 100.0500, L500.2500, L100.4500 ####[facility] [address] [place], [address] Potassium measurement (mass/ volume)Ordered By: Delgado Amaro on 06-24-2024 Potassium [Moles/Vol] 3.8 mmol/L Normal 3.3-5.1 [facility] Comment on above: Order Comment: 503.2 Performed By: #### L 100.0500, L500.2500, L100.4500 ####[facility] [address] [place], [address] Potassium (Unsp spec) [Mass/Vol] 3.8 mmol/L 3.3-5.1 [facility] Serum creatinine measurement (mass/volume)Ordered By: Delgado Amaro on 06-24-2024 Creatinine [Mass/Vol] 1.16 mg/dL Normal 0.70-1.20 [facility] Comment on above: Order Comment: 503.2 Performed By: #### L 100.0500, L500.2500, L100.4500 ####[facility] [address] [place], [address] Serum glucose measurement (m ass/volume)Ordered By: Delgado Amaro on 06-24-2024 Glucose [Mass/Vol] 102 mg/dL High 70-99 [facility] Comment on above: Order Comment: 503.2 Performed By: #### L 100.0500, L500.2500, L100.4500 ####[facility] [address] [place], [address] Serum or plasma calcium kay urement (mass/volume)Ordered By: Delgado Amaro on 06-24-2024 Calcium [Mass/Vol] 8.9 mg/dL Normal 7.6-11.0 [facility] Comment on above: Order Comment: 503.2 Performed By: #### L 100.0500, L500.2500, L100.4500 ####[facility] [address] [place], [address] Serum or plasma urea nitroge n measurement (mass/volume)Ordered By: Delgado Amaro on 06-24-2024 Urea nitrogen [Mass/Vol] 21 mg/dL High 4-19 [facility] Comment on above: Order Comment: 503.2 Performed By: #### L 100.0500, L500.2500, L100.4500 ####[facility] [address] [place], [address] Sodium levelOrdered By: Dimitry Amaro on 06-24-2024 Sodium [Moles/Vol] 140 mmol/L Normal 133-145 [facility] Comment on above: Order Comment: 503.2 Performed By: #### L 100.0500, L500.2500, L100.4500 ####[facility] [address] [place], [address] White blood cell (WBC) count Ordered By: Delgado Amaro on 06-24-2024 WBC (Bld) [#/Vol] 6.3 10*3/uL Normal 4.4-11.0 [facility] Comment on above: Order Comment: 503.2 Performed By: #### L 100.0500, L500.2500, L100.4500 ####[facility] [address] [place], [address] BUN/creatinine ratioOrdered By: April Mullen on 06-04-2024 Urea nitrogen/Creatinine [Mass ratio] 24.1 mg/mg High 10-20 [facility] Basic Metabolic Profile (BMP )on 06-04-2024 Anion gap [Moles/Vol] 12 mmol/L Normal 5-15 [facility] Comment on above: Order Comment: 503-2 Performed By: #### L 500.2500 ####[facility] [address] [place], [address] BUN/CRE 24.1 RATIO High 10-20 [facility] Comment on above: Order Comment: 503-2 Performed By: #### L 500.2500 ####[facility] [address] [place], [address] Calcium [Mass/Vol] 9.1 mg/dL Normal 7.6-11.0 [facility] Comment on above: Order Comment: 503-2 Performed By: #### L 500.2500 ####[facility] [address] [place], [address] Chloride [Moles/Vol] 101 mmol/L Normal 96-108 [facility] Comment on above: Order Comment: 503-2 Performed By: #### L 500.2500 ####[facility] [address] [place], [address] CO2 [Moles/Vol] 27.3 mmol/L Normal 22.0-29.0 [facility] Comment on above: Order Comment: 503-2 Performed By: #### L 500.2500 ####[facility] [address] [place], [address] Creatinine [Mass/Vol] 1.2 mg/dL High 0.6-1.0 [facility] Comment on above: Order Comment: 503-2 Performed By: #### L 500.2500 ####[facility] [address] [place], [address] GFR/1.73 sq M.predicted among non-blacks MDRD (S/P/Bld) [Vol rate/Area] 49 mL/min/{1.73_m2} Low >60 [facility] Comment on above: Order Comment: 503-2 Result Comment: mL/m in/1.73m2 CKD-EPI Creatinine Equation (2020) Performed By: #### L 500.2500 ####[facility] [address] [place], [address] Glucose [Mass/Vol] 122 mg/dL High 70-99 [facility] Comment on above: Order Comment: 503-2 Performed By: #### L 500.2500 ####[facility] [address] [place], [address] Potassium [Moles/Vol] 4.1 mmol/L Normal 3.3-5.1 [facility] Comment on above: Order Comment: 503-2 Performed By: #### L 500.2500 ####[facility] [address] [place], [address] Sodium [Moles/Vol] 140 mmol/L Normal 133-145 [facility] Comment on above: Order Comment: 503-2 Performed By: #### L 500.2500 ####[facility] [address] [place], [address] Urea nitrogen [Mass/Vol] 28 mg/dL High 4-19 [facility] Comment on above: Order Comment: 503-2 Performed By: #### L 500.2500 ####[facility] [address] [place], [address] Carbon dioxide measurementOr dered By: April Mullen on 06-04-2024 CO2 [Moles/Vol] 27.3 mmol/L 22.0-29.0 [facility] Chloride measurementOrdered By: April Mullen on 06-04-2024 Chloride [Moles/Vol] 101 mmol/L 96-108 [facility] Creatinine [Moles/Vol]Ordere d By: April Mullen on 06-04-2024 Creatinine [Mass/Vol] 1.2 mg/dL High 0.6-1.0 [facility] GFR/1.73 sq M.predicted tanner g non-blacks MDRD (S/P/Bld) [Vol rate/Area]Ordered By: April Mullen on 06-04-2024 Estimated GFR (MDRD) Non-Af Amer 49 Low >60 [facility] Comment on above: mL/min/1.73m2 CKD-EP I Creatinine Equation (2020) Glomerular filtration rate ( GFR) estimation/1.73 sq m using serum, plasma, or whole bOrdered By: April Mullen on 06-04-2024 GFR/1.73 sq M.predicted among non-blacks MDRD (S/P/Bld) [Vol rate/Area] 49 mL/min/{1.73_m2} Low >60 [facility] Comment on above: mL/min/1.73m2 CKD-EP I Creatinine Equation (2020) Serum glucose measurement (m ass/volume)Ordered By: April Mullen on 06-04-2024 Glucose [Mass/Vol] 122 mg/dL High 70-99 [facility] Serum or plasma anion gap de termination (moles/volume)Ordered By: April Mullen on 06-04-2024 Anion gap [Moles/Vol] 12 mmol/L 5-15 [facility] Serum or plasma calcium kay urement (mass/volume)Ordered By: April Mullen on 06-04-2024 Calcium [Mass/Vol] 9.1 mg/dL 7.6-11.0 [facility] Serum or plasma creatinine m easurement (moles/volume)Ordered By: April Mullen on 06-04-2024 Creatinine [Moles/Vol] 1.2 mg/dL High 0.6-1.0 [facility] Serum or plasma potassium me asurementOrdered By: April Mullen on 06-04-2024 Potassium [Moles/Vol] 4.1 mmol/L 3.3-5.1 [facility] Serum or plasma sodium measu rement (moles/volume)Ordered By: April Mullen on 06-04-2024 Sodium [Moles/Vol] 140 mmol/L 133-145 [facility] Serum or plasma urea nitroge n measurement (mass/volume)Ordered By: April Mullen on 06-04-2024 Urea nitrogen [Mass/Vol] 28 mg/dL High 4-19 [facility] BUN/creatinine ratioOrdered By: Delgado Amaro on 06-03-2024 Urea nitrogen/Creatinine [Mass ratio] 25.0 mg/mg High 10-20 [facility] Basic Metabolic Profile (BMP )on 06-03-2024 BUN/CRE 25.0 RATIO High 10-20 [facility] Comment on above: Performed By: #### L 500.2500 ####[facility] [address] [place], [address] Chloride [Moles/Vol] 101 mmol/L Normal 96-108 [facility] Comment on above: Performed By: #### L 500.2500 ####[facility] [address] [place], [address] CO2 [Moles/Vol] 28.1 mmol/L Normal 22.0-29.0 [facility] Comment on above: Performed By: #### L 500.2500 ####[facility] [address] [place], [address] BUN Normal 7-18 [facility] Comment on above: Order Comment: 503.2 Result Comment: PUTT ING UNDER DIFFERENT REQ Performed By: #### L 100.0500, L500.2500 ####[facility] [address] [place], [address] BUN/CRE Normal 10-20 [facility] Comment on above: Order Comment: 503.2 Result Comment: PUTT ING UNDER DIFFERENT REQ Performed By: #### L 100.0500, L500.2500 ####[facility] [address] [place], [address] Calcium Normal 8.5-10.1 [facility] Comment on above: Order Comment: 503.2 Result Comment: PUTT ING UNDER DIFFERENT REQ Performed By: #### L 100.0500, L500.2500 ####[facility] [address] [place], [address] CL Normal 98-107 [facility] Comment on above: Order Comment: 503.2 Result Comment: PUTT ING UNDER DIFFERENT REQ Performed By: #### L 100.0500, L500.2500 ####[facility] [address] [place], [address] CO2 Normal 21.0-32.0 [facility] Comment on above: Order Comment: 503.2 Result Comment: PUTT ING UNDER DIFFERENT REQ Performed By: #### L 100.0500, L500.2500 ####[facility] [address] [place], [address] CREAT,SERUM Normal 0.55-1.02 [facility] Comment on above: Order Comment: 503.2 Result Comment: PUTT ING UNDER DIFFERENT REQ Performed By: #### L 100.0500, L500.2500 ####[facility] [address] [place], [address] eGFR Normal >60 [facility] Comment on above: Order Comment: 503.2 Result Comment: PUTT ING UNDER DIFFERENT REQ Performed By: #### L 100.0500, L500.2500 ####[facility] [address] [place], [address] EST GFR - AA Normal >60 [facility] Comment on above: Order Comment: 503.2 Result Comment: PUTT ING UNDER DIFFERENT REQ Performed By: #### L 100.0500, L500.2500 ####[facility] [address] [place], [address] GAP Normal 5-15 [facility] Comment on above: Order Comment: 503.2 Result Comment: PUTT ING UNDER DIFFERENT REQ Performed By: #### L 100.0500, L500.2500 ####[facility] [address] [place], [address] GLU Normal 74-106 [facility] Comment on above: Order Comment: 503.2 Result Comment: PUTT ING UNDER DIFFERENT REQ Performed By: #### L 100.0500, L500.2500 ####[facility] [address] [place], [address] Potassium Normal 3.5-5.1 [facility] Comment on above: Order Comment: 503.2 Result Comment: PUTT ING UNDER DIFFERENT REQ Performed By: #### L 100.0500, L500.2500 ####[facility] [address] [place], [address] Basic Metabolic Profile (BMP) Normal 136-145 [facility] Comment on above: Order Comment: 503.2 Result Comment: PUTT ING UNDER DIFFERENT REQ Performed By: #### L 100.0500, L500.2500 ####[facility] [address] [place], [address] CBC-Complete Blood Cnt No Di ffon 06-03-2024 Erythrocyte distribution width (RBC) [Ratio] 20.0 % High 11.6-14.6 [facility] Comment on above: Order Comment: 503.2 Performed By: #### L 100.0500, L500.2500 ####[facility] [address] [place], [address] Hematocrit (Bld) [Volume fraction] 33.1 % Low 37-47 [facility] Comment on above: Order Comment: 503.2 Performed By: #### L 100.0500, L500.2500 ####[facility] [address] [place], [address] Hemoglobin (Bld) [Mass/Vol] 10.0 g/dL Low 12.0-15.0 [facility] Comment on above: Order Comment: 503.2 Performed By: #### L 100.0500, L500.2500 ####[facility] [address] [place], [address] MCH (RBC) [Entitic mass] 24.4 pg Low 27.0-32.0 [facility] Comment on above: Order Comment: 503.2 Performed By: #### L 100.0500, L500.2500 ####[facility] [address] [place], [address] MCHC (RBC) [Mass/Vol] 30.2 g/dL Low 32-36 [facility] Comment on above: Order Comment: 503.2 Performed By: #### L 100.0500, L500.2500 ####[facility] [address] [place], [address] MCV (RBC) [Entitic vol] 80.9 fL Low 81-99 [facility] Comment on above: Order Comment: 503.2 Performed By: #### L 100.0500, L500.2500 ####[facility] [address] [place], [address] Platelet mean volume (Bld) [Entitic vol] 9.7 fL Normal 6.2-12.0 [facility] Comment on above: Order Comment: 503.2 Performed By: #### L 100.0500, L500.2500 ####[facility] [address] [place], [address] Platelets (Bld) [#/Vol] 156 10*3/uL Normal 150-450 [facility] Comment on above: Order Comment: 503.2 Performed By: #### L 100.0500, L500.2500 ####[facility] [address] [place], [address] RBC (Bld) [#/Vol] 4.09 10*6/uL Low 4.2-5.4 [facility] Comment on above: Order Comment: 503.2 Performed By: #### L 100.0500, L500.2500 ####[facility] [address] [place], [address] RDW SD 58.8 fl High 35.1-43.9 [facility] Comment on above: Order Comment: 503.2 Performed By: #### L 100.0500, L500.2500 ####[facility] [address] [place], [address] WBC (Bld) [#/Vol] 6.0 10*3/uL Normal 4.4-11.0 [facility] Comment on above: Order Comment: 503.2 Performed By: #### L 100.0500, L500.2500 ####[facility] [address] [place], [address] Erythrocyte distribution wid th ratioOrdered By: Delgado Amaro on 06-03-2024 Erythrocyte distribution width (RBC) [Ratio] 20.0 % High 11.6-14.6 [facility] Erythrocyte distribution wid th standard deviationOrdered By: Delgado Amaro on 06-03-2024 Erythrocyte distribution width (RBC) [Entitic vol] 58.8 fL High 35.1-43.9 [facility] Erythrocyte distribution width (RBC) [Ratio] 58.8 fl High 35.1-43.9 [facility] GFR/1.73 sq M.predicted tanner g non-blacks MDRD (S/P/Bld) [Vol rate/Area]Ordered By: Delgado Amaro on 06-03-2024 Estimated GFR (MDRD) Non-Af Amer 47 Low >60 [facility] Comment on above: mL/min/1.73m2 CKD-EP I Creatinine Equation (2020) Glomerular filtration rate ( GFR) estimation/1.73 sq m using serum, plasma, or whole bOrdered By: Delgado Amaro on 06-03-2024 GFR/1.73 sq M.predicted among non-blacks MDRD (S/P/Bld) [Vol rate/Area] 47 mL/min/{1.73_m2} Low >60 [facility] Comment on above: mL/min/1.73m2 CKD-EP I Creatinine Equation (2020) Result Comment: mL/m in/1.73m2 CKD-EPI Creatinine Equation (2020) Performed By: #### L 500.2500 ####[facility] [address] [place], [address] Hematocrit Auto (Bld) [Volum e fraction]Ordered By: Delgado Amaro on 06-03-2024 Hematocrit (Bld) [Volume fraction] 33.1 % Low 37-47 [facility] Hemoglobin measurementOrdere d By: Delgado Amaro on 06-03-2024 Hemoglobin (Bld) [Mass/Vol] 10.0 g/dL Low 12.0-15.0 [facility] MCV (mean corpuscular volume ) determinationOrdered By: Delgado Amaro on 06-03-2024 MCV (RBC) [Entitic vol] 80.9 fL Low 81-99 [facility] Mean corpuscular hemoglobin (MCH) determinationOrdered By: Delgado Amaro on 06-03-2024 MCH (RBC) [Entitic mass] 24.4 pg Low 27.0-32.0 [facility] Mean corpuscular hemoglobin concentration (MCHC) determinationOrdered By: Delgado Amaro on 06-03-2024 MCHC (RBC) [Mass/Vol] 30.2 g/dL Low 32-36 [facility] Mean platelet volume determi nationOrdered By: Delgado Amaro on 06-03-2024 Platelet mean volume (Bld) [Entitic vol] 9.7 fL 6.2-12.0 [facility] Platelet countOrdered By: Kade Amaro on 06-03-2024 Platelets (Bld) [#/Vol] 156 10*3/uL 150-450 [facility] RBC Auto (Bld) [#/Vol]Ordere d By: Delgado Amaro on 06-03-2024 RBC (Bld) [#/Vol] 4.09 10*6/uL Low 4.2-5.4 [facility] Serum glucose measurement (m ass/volume)Ordered By: Delgado Amaro on 06-03-2024 Glucose [Mass/Vol] 97 mg/dL Normal 70-99 [facility] Comment on above: Performed By: #### L 500.2500 ####[facility] [address] [place], [address] Serum or plasma anion gap de termination (moles/volume)Ordered By: Delgado Amaro on 06-03-2024 Anion gap [Moles/Vol] 10 mmol/L Normal 5-15 [facility] Comment on above: Performed By: #### L 500.2500 ####[facility] [address] [place], [address] Serum or plasma calcium kay urement (mass/volume)Ordered By: Delgado Amaro on 06-03-2024 Calcium [Mass/Vol] 9.3 mg/dL Normal 7.6-11.0 [facility] Comment on above: Performed By: #### L 500.2500 ####[facility] [address] [place], [address] Serum or plasma creatinine m easurement (moles/volume)Ordered By: Delgado Amaro on 06-03-2024 Creatinine [Mass/Vol] 1.2 mg/dL High 0.6-1.0 [facility] Comment on above: Performed By: #### L 500.2500 ####[facility] [address] [place], [address] Creatinine [Moles/Vol] 1.2 mg/dL High 0.6-1.0 [facility] Serum or plasma potassium me asurementOrdered By: Delgado Amaro on 06-03-2024 Potassium [Moles/Vol] 4.4 mmol/L Normal 3.3-5.1 [facility] Comment on above: Performed By: #### L 500.2500 ####[facility] [address] [place], [address] Serum or plasma sodium measu rement (moles/volume)Ordered By: Delgado Amaro on 06-03-2024 Sodium [Moles/Vol] 139 mmol/L Normal 133-145 [facility] Comment on above: Performed By: #### L 500.2500 ####[facility] [address] [place], [address] Serum or plasma urea nitroge n measurement (mass/volume)Ordered By: Delgado Amaro on 06-03-2024 Urea nitrogen [Mass/Vol] 30 mg/dL High 4-19 [facility] Comment on above: Performed By: #### L 500.2500 ####[facility] [address] [place], [address] White blood cell (WBC) count Ordered By: Delgado Amaro on 06-03-2024 WBC (Bld) [#/Vol] 6.0 10*3/uL 4.4-11.0 [facility] Automated blood erythrocyte countOrdered By: April Mullen on 06-02-2024 RBC (Bld) [#/Vol] 4.17 10*6/uL Low 4.2-5.4 [facility] Comment on above: Order Comment: 503.2 Performed By: #### L 500.2500, L100.0500 ####[facility] [address] [place], [address] Automated blood hematocrit ( percentage)Ordered By: April Mullen on 06-02-2024 Hematocrit (Bld) [Volume fraction] 34.0 % Low 37-47 [facility] Comment on above: Order Comment: 503.2 Performed By: #### L 500.2500, L100.0500 ####[facility] [address] [place], [address] Basic Metabolic Profile (BMP )on 06-02-2024 BUN/CRE 21.6 RATIO High 10-20 [facility] Comment on above: Order Comment: 503.2 Performed By: #### L 500.2500, L100.0500 ####[facility] [address] [place], [address] CA,Total 9.1 mg/dL Normal 8.5-10.1 [facility] Comment on above: Order Comment: 503.2 Performed By: #### L 500.2500, L100.0500 ####[facility] [address] [place], [address] EST GFR - AA 54 mL/min Low >60 [facility] Comment on above: Order Comment: 503.2 Result Comment: Afri can [place] GFR Calc Performed By: #### L 500.2500, L100.0500 ####[facility] [address] [place], [address] GAP 4 Low 5-15 [facility] Comment on above: Order Comment: 503.2 Performed By: #### L 500.2500, L100.0500 ####[facility] [address] [place], [address] Blood urea nitrogen (BUN)/cr eatinine ratioOrdered By: April Mullen on 06-02-2024 Urea nitrogen/Creatinine [Mass ratio] 21.6 mg/mg High 10-20 [facility] CBC-Complete Blood Cnt No Di ffon 06-02-2024 RDW SD 58.6 fl High 35.1-43.9 [facility] Comment on above: Order Comment: 503.2 Performed By: #### L 500.2500, L100.0500 ####[facility] [address] [place], [address] Carbon dioxide measurementOr dered By: April Mullen on 06-02-2024 CO2 [Moles/Vol] 33.0 mmol/L High 21.0-32.0 [facility] Comment on above: Order Comment: 503.2 Performed By: #### L 500.2500, L100.0500 ####[facility] [address] [place], [address] Chloride measurementOrdered By: April Mullen on 06-02-2024 Chloride [Moles/Vol] 101 mmol/L Normal 98-107 [facility] Comment on above: Order Comment: 503.2 Performed By: #### L 500.2500, L100.0500 ####[facility] [address] [place], [address] Erythrocyte distribution wid th ratioOrdered By: April Mullen on 06-02-2024 Erythrocyte distribution width (RBC) [Ratio] 20.0 % High 11.6-14.6 [facility] Comment on above: Order Comment: 503.2 Performed By: #### L 500.2500, L100.0500 ####[facility] [address] [place], [place], [address] Erythrocyte distribution wid th standard deviationOrdered By: April Mullen on 06-02-2024 Erythrocyte distribution width (RBC) [Entitic vol] 58.6 fL High 35.1-43.9 [facility] Erythrocyte distribution width (RBC) [Ratio] 58.6 fl High 35.1-43.9 [facility] Estimated glomerular filtrat ion rate (GFR) AmericanOrdered By: April Mullen on 06-02-2024 Estimated GFR (MDRD) Amer 54 mL/min Low >60 [facility] Comment on above: GFR Calc Glomerular filtration rate ( GFR) estimationOrdered By: April Mullen on 06-02-2024 GFR/1.73 sq M.predicted among non-blacks MDRD (S/P/Bld) [Vol rate/Area] 44 mL/min/{1.73_m2} Low >60 [facility] Comment on above: Non- GFR Calc Order Comment: 503.2 Result Comment: Non- GFR Calc Performed By: #### L 500.2500, L100.0500 ####[facility] [address] [place], [place], [address] Estimated GFR (MDRD) Non-Af Amer 44 mL/min Low >60 [facility] Comment on above: Non- GFR Calc Glucose measurementOrdered B y: April Mullen on 06-02-2024 Glucose [Mass/Vol] 101 mg/dL Normal 74-106 [facility] Comment on above: Fasting Glucose resu lt from 100 to 125 mg/dL suggests IMPAIRED HOMEOSTASIS per A.D.A. criteria. Order Comment: 503.2 Result Comment: Fast ing Glucose result from 100 to 125 mg/dLsuggests IMPAIRED HOMEOSTASIS per A.D.A. criteria. Performed By: #### L 500.2500, L100.0500 ####[facility] [address] [place], [address] Hemoglobin measurementOrdere d By: April Mullen on 06-02-2024 Hemoglobin (Bld) [Mass/Vol] 10.2 g/dL Low 12.0-15.0 [facility] Comment on above: Order Comment: 503.2 Performed By: #### L 500.2500, L100.0500 ####[facility] [address] [place], [address] MCV (mean corpuscular volume ) determinationOrdered By: April Mullen on 06-02-2024 MCV (RBC) [Entitic vol] 81.5 fL Normal 81-99 [facility] Comment on above: Order Comment: 503.2 Performed By: #### L 500.2500, L100.0500 ####[facility] [address] [place], [address] Mean corpuscular hemoglobin (MCH) determinationOrdered By: April Mullen on 06-02-2024 MCH (RBC) [Entitic mass] 24.5 pg Low 27.0-32.0 [facility] Comment on above: Order Comment: 503.2 Performed By: #### L 500.2500, L100.0500 ####[facility] [address] [place], [address] Mean corpuscular hemoglobin concentration (MCHC) determinationOrdered By: April Mullen on 06-02-2024 MCHC (RBC) [Mass/Vol] 30.0 g/dL Low 32-36 [facility] Comment on above: Order Comment: 503.2 Performed By: #### L 500.2500, L100.0500 ####[facility] [address] [place], [address] Mean platelet volume determi nationOrdered By: April Mullen on 06-02-2024 Platelet mean volume (Bld) [Entitic vol] 9.8 fL Normal 6.2-12.0 [facility] Comment on above: Order Comment: 503.2 Performed By: #### L 500.2500, L100.0500 ####[facility] [address] [place], [address] Platelet countOrdered By: Darvin Mullen on 06-02-2024 Platelets (Bld) [#/Vol] 174 10*3/uL Normal 150-450 [facility] Comment on above: Order Comment: 503.2 Performed By: #### L 500.2500, L100.0500 ####[facility] [address] [place], [address] Potassium measurementOrdered By: April Mullen on 06-02-2024 Potassium [Moles/Vol] 4.2 mmol/L Normal 3.5-5.1 [facility] Comment on above: Order Comment: 503.2 Performed By: #### L 500.2500, L100.0500 ####[facility] [address] [place], [address] Serum anion gap measurementO rdered By: April Mullen on 06-02-2024 Anion gap [Moles/Vol] 4 mmol/L Low 5-15 [facility] Serum or plasma calcium kay urement (mass/volume)Ordered By: April Mullen on 06-02-2024 Calcium [Mass/Vol] 9.1 mg/dL 8.5-10.1 [facility] Serum or plasma creatinine m easurement (mass/volume)Ordered By: April Mullen on 06-02-2024 Creatinine [Mass/Vol] 1.25 mg/dL High 0.55-1.02 [facility] Comment on above: The validity of the calculated GFR & GFRAA in patients over 70 years has not been determined. Clinical correlation is essential. Order Comment: 503.2 Result Comment: The validity of the calculated GFR GFRAA in patients over70 years has not been determined. Clinical correlation isessential. Performed By: #### L 500.2500, L100.0500 ####[facility] [address] [place], [address] Serum or plasma urea nitroge n measurement (mass/volume)Ordered By: April Mullen on 06-02-2024 Urea nitrogen [Mass/Vol] 27 mg/dL High 7-18 [facility] Comment on above: Order Comment: 503.2 Performed By: #### L 500.2500, L100.0500 ####[facility] [address] [place], [address] Sodium levelOrdered By: Yair Mullen on 06-02-2024 Sodium [Moles/Vol] 138 mmol/L Normal 136-145 [facility] Comment on above: Order Comment: 503.2 Performed By: #### L 500.2500, L100.0500 ####[facility] [address] [place], [address] White blood cell (WBC) count Ordered By: April Mullen on 06-02-2024 WBC (Bld) [#/Vol] 6.4 10*3/uL Normal 4.4-11.0 [facility] Comment on above: Order Comment: 503.2 Performed By: #### L 500.2500, L100.0500 ####[facility] [address] [place], [address] Basic Metabolic Profile (BMP )on 05-27-2024 BUN/CRE 20.0 RATIO Normal 10-20 [facility] Comment on above: Order Comment: 503.2 Performed By: #### L 500.2500, L100.0500, L100.4500 ####[facility] [address] [place], [address] CA,Total 8.7 mg/dL Normal 8.5-10.1 [facility] Comment on above: Order Comment: 503.2 Performed By: #### L 500.2500, L100.0500, L100.4500 ####[facility] [address] [place], [address] Chloride [Moles/Vol] 104 mmol/L Normal 98-107 [facility] Comment on above: Order Comment: 503.2 Performed By: #### L 500.2500, L100.0500, L100.4500 ####[facility] [address] [place], [address] CO2 [Moles/Vol] 30.0 mmol/L Normal 21.0-32.0 [facility] Comment on above: Order Comment: 503.2 Performed By: #### L 500.2500, L100.0500, L100.4500 ####[facility] [address] [place], [address] Creatinine [Mass/Vol] 1.25 mg/dL High 0.55-1.02 [facility] Comment on above: Order Comment: 503.2 Result Comment: The validity of the calculated GFR GFRAA in patients over70 years has not been determined. Clinical correlation isessential. Performed By: #### L 500.2500, L100.0500, L100.4500 ####[facility] [address] [place], [address] EST GFR - AA 54 mL/min Low >60 [facility] Comment on above: Order Comment: 503.2 Result Comment: Afri can [place] GFR Calc Performed By: #### L 500.2500, L100.0500, L100.4500 ####[facility] [address] [place], [address] GAP 7 Normal 5-15 [facility] Comment on above: Order Comment: 503.2 Performed By: #### L 500.2500, L100.0500, L100.4500 ####[facility] [address] [place], [address] GFR/1.73 sq M.predicted among non-blacks MDRD (S/P/Bld) [Vol rate/Area] 44 mL/min/{1.73_m2} Low >60 [facility] Comment on above: Order Comment: 503.2 Result Comment: Non- GFR Calc Performed By: #### L 500.2500, L100.0500, L100.4500 ####[facility] [address] [place], [address] Glucose [Mass/Vol] 101 mg/dL Normal 74-106 [facility] Comment on above: Order Comment: 503.2 Result Comment: Fast ing Glucose result from 100 to 125 mg/dLsuggests IMPAIRED HOMEOSTASIS per A.D.A. criteria. Performed By: #### L 500.2500, L100.0500, L100.4500 ####[facility] [address] [place], [address] Potassium [Moles/Vol] 3.7 mmol/L Normal 3.5-5.1 [facility] Comment on above: Order Comment: 503.2 Performed By: #### L 500.2500, L100.0500, L100.4500 ####[facility] [address] [place], [address] Sodium [Moles/Vol] 141 mmol/L Normal 136-145 [facility] Comment on above: Order Comment: 503.2 Performed By: #### L 500.2500, L100.0500, L100.4500 ####[facility] [address] [place], [address] Urea nitrogen [Mass/Vol] 25 mg/dL High 7-18 [facility] Comment on above: Order Comment: 503.2 Performed By: #### L 500.2500, L100.0500, L100.4500 ####[facility] [address] [place], [address] Blood manual differential co mment interpretation (narrative result)Ordered By: April Mullen on 02-18-2025 Manual differential comment Jd (Bld) [Interp] See comment [facility] Comment on above: 1+ ANISOCYTOSIS1+ OV ALOCYTESSLIGHTLY DECREASED PLATELETS Blood urea nitrogen (BUN)/cr eatinine ratioOrdered By: April Mullen on 05-27-2024 Urea nitrogen/Creatinine [Mass ratio] 20.0 mg/mg 10-20 [facility] CBC-Complete Blood Cnt No Di ffon 05-27-2024 Erythrocyte distribution width (RBC) [Ratio] 20.2 % High 11.6-14.6 [facility] Comment on above: Order Comment: 503.2 Performed By: #### L 500.2500, L100.0500, L100.4500 ####[facility] [address] [place], [address] Hematocrit (Bld) [Volume fraction] 35.3 % Low 37-47 [facility] Comment on above: Order Comment: 503.2 Performed By: #### L 500.2500, L100.0500, L100.4500 ####[facility] [address] [place], [address] Hemoglobin (Bld) [Mass/Vol] 10.5 g/dL Low 12.0-15.0 [facility] Comment on above: Order Comment: 503.2 Performed By: #### L 500.2500, L100.0500, L100.4500 ####[facility] [address] [place], [address] MCH (RBC) [Entitic mass] 24.0 pg Low 27.0-32.0 [facility] Comment on above: Order Comment: 503.2 Performed By: #### L 500.2500, L100.0500, L100.4500 ####[facility] [address] [place], [address] MCHC (RBC) [Mass/Vol] 29.7 g/dL Low 32-36 [facility] Comment on above: Order Comment: 503.2 Performed By: #### L 500.2500, L100.0500, L100.4500 ####[facility] [address] [place], [address] MCV (RBC) [Entitic vol] 80.6 fL Low 81-99 [facility] Comment on above: Order Comment: 503.2 Performed By: #### L 500.2500, L100.0500, L100.4500 ####[facility] [address] [place], [address] Platelet mean volume (Bld) [Entitic vol] 9.2 fL Normal 6.2-12.0 [facility] Comment on above: Order Comment: 503.2 Performed By: #### L 500.2500, L100.0500, L100.4500 ####[facility] [address] [place], [address] Platelets (Bld) [#/Vol] 149 10*3/uL Low 150-450 [facility] Comment on above: Order Comment: 503.2 Performed By: #### L 500.2500, L100.0500, L100.4500 ####[facility] [address] [place], [address] RBC (Bld) [#/Vol] 4.38 10*6/uL Normal 4.2-5.4 [facility] Comment on above: Order Comment: 503.2 Performed By: #### L 500.2500, L100.0500, L100.4500 ####[facility] [address] [place], [address] RDW SD 58.6 fl High 35.1-43.9 [facility] Comment on above: Order Comment: 503.2 Performed By: #### L 500.2500, L100.0500, L100.4500 ####[facility] [address] [place], [address] WBC (Bld) [#/Vol] 5.3 10*3/uL Normal 4.4-11.0 [facility] Comment on above: Order Comment: 503.2 Performed By: #### L 500.2500, L100.0500, L100.4500 ####[facility] [address] [place], [address] Carbon dioxide measurementOr dered By: April Mullen on 05-27-2024 CO2 [Moles/Vol] 30.0 mmol/L 21.0-32.0 [facility] Chloride measurementOrdered By: April Mullen on 05-27-2024 Chloride [Moles/Vol] 104 mmol/L 98-107 [facility] [facility] [place] Differential Commenton 05-27 SMEAR COMMENT Normal [facility] Comment on above: Order Comment: 503.2 Result Comment: 1+ A NISOCYTOSIS1+ OVALOCYTESSLIGHTLY DECREASED PLATELETS Performed By: #### L 500.2500, L100.0500, L100.4500 ####[facility] [address] [place], [address] Erythrocyte distribution wid th ratioOrdered By: April Mullen on 05-27-2024 Erythrocyte distribution width (RBC) [Ratio] 20.2 % High 11.6-14.6 [facility] Erythrocyte distribution wid th standard deviationOrdered By: April Mullen on 05-27-2024 Erythrocyte distribution width (RBC) [Entitic vol] 58.6 fL High 35.1-43.9 [facility] Erythrocyte distribution width (RBC) [Ratio] 58.6 fl High 35.1-43.9 [facility] Estimated glomerular filtrat ion rate (GFR) AmericanOrdered By: April Mullen on 05-27-2024 Estimated GFR (MDRD) Amer 54 mL/min Low >60 [facility] Comment on above: GFR Calc Glomerular filtration rate ( GFR) estimationOrdered By: April Mullen on 05-27-2024 Estimated GFR (MDRD) Non-Af Amer 44 mL/min Low >60 [facility] Comment on above: Non- GFR Calc GFR/1.73 sq M.predicted among non-blacks MDRD (S/P/Bld) [Vol rate/Area] 44 mL/min/{1.73_m2} Low >60 [facility] Comment on above: Non- GFR Calc Glucose measurementOrdered B y: April Mullen on 05-27-2024 Glucose [Mass/Vol] 101 mg/dL 74-106 [facility] Comment on above: Fasting Glucose resu lt from 100 to 125 mg/dL suggests IMPAIRED HOMEOSTASIS per A.D.A. criteria. Hematocrit Auto (Bld) [Volum e fraction]Ordered By: April Mullen on 05-27-2024 Hematocrit (Bld) [Volume fraction] 35.3 % Low 37-47 [facility] Hemoglobin measurementOrdere d By: April Mullen on 05-27-2024 Hemoglobin (Bld) [Mass/Vol] 10.5 g/dL Low 12.0-15.0 [facility] MCV (mean corpuscular volume ) determinationOrdered By: April Mullen on 05-27-2024 MCV (RBC) [Entitic vol] 80.6 fL Low 81-99 [facility] Manual differential comment Jd (Bld) [Interp]Ordered By: April Mullen on 05-27-2024 Differential Comment See comment [facility] Comment on above: 1+ ANISOCYTOSIS1+ OV ALOCYTESSLIGHTLY DECREASED PLATELETS Mean corpuscular hemoglobin (MCH) determinationOrdered By: April Mullen on 05-27-2024 MCH (RBC) [Entitic mass] 24.0 pg Low 27.0-32.0 [facility] Mean corpuscular hemoglobin concentration (MCHC) determinationOrdered By: April Mullen on 05-27-2024 MCHC (RBC) [Mass/Vol] 29.7 g/dL Low 32-36 [facility] Mean platelet volume determi nationOrdered By: April Mullen on 05-27-2024 Platelet mean volume (Bld) [Entitic vol] 9.2 fL 6.2-12.0 [facility] Platelet countOrdered By: Darvin Mullen on 05-27-2024 Platelets (Bld) [#/Vol] 149 10*3/uL Low 150-450 [facility] Potassium measurementOrdered By: April Mullen on 05-27-2024 Potassium [Moles/Vol] 3.7 mmol/L 3.5-5.1 [facility] RBC Auto (Bld) [#/Vol]Ordere d By: April Mullen on 05-27-2024 RBC (Bld) [#/Vol] 4.38 10*6/uL 4.2-5.4 [facility] Serum anion gap measurementO rdered By: April Mullen on 05-27-2024 Anion gap [Moles/Vol] 7 mmol/L 5-15 [facility] Serum or plasma calcium kay urement (mass/volume)Ordered By: April Mullen on 05-27-2024 Calcium [Mass/Vol] 8.7 mg/dL 8.5-10.1 [facility] Serum or plasma creatinine m easurement (mass/volume)Ordered By: April Mullen on 05-27-2024 Creatinine [Mass/Vol] 1.25 mg/dL High 0.55-1.02 [facility] Comment on above: The validity of the calculated GFR & GFRAA in patients over 70 years has not been determined. Clinical correlation is essential. Serum or plasma urea nitroge n measurement (mass/volume)Ordered By: April Mullen on 05-27-2024 Urea nitrogen [Mass/Vol] 25 mg/dL High 7-18 [facility] Sodium levelOrdered By: Yair Mullen on 05-27-2024 Sodium [Moles/Vol] 141 mmol/L 136-145 [facility] White blood cell (WBC) count Ordered By: April Mullen on 05-27-2024 WBC (Bld) [#/Vol] 5.3 10*3/uL 4.4-11.0 [facility] 37-ZX-Grmojzb DOrdered By: Selina Amaro on 05-12-2024 Vitamin D 25-Hydroxy 41.0 ng/mL [facility] Comment on above: Vitamin D 25(OH) Sta tus Range Deficiency <20 ng/mL (50nmol/L) Insufficiency 20 - 30 ng/mL (50 - 75 nmol/L) Sufficiency 30 - 100 ng/mL (75 - 250 nmol/L) Toxicity >100 ng/mL (>250 nmol/L) Albumin to globulin ratioOrd ered By: Delgado Amaro on 05-12-2024 Albumin/Globulin [Mass ratio] 0.7 {ratio} Low 0.9-2.4 [facility] BNP (brain natriuretic pepti de measurement)Ordered By: Delgado Amaro on 05-12-2024 Natriuretic peptide B (Bld) [Mass/Vol] 403.6 pg/mL High 0-100 [facility] Comment on above: Performed By: #### L 100.0500, L506.1000, L100.4500, L500.4050, L503.6620 ####[facility] [address] [place], [place], [id number] Bilirubin, totalOrdered By: Delgado Amaro on 05-12-2024 Bilirubin [Mass/Vol] 0.20 mg/dL 0.20-1.00 [facility] [place] Comment on above: For patients on eltr ombopag therapy, use of Dimension [place] TBIL is not recommended. Blood manual differential co mment interpretation (narrative result)Ordered By: Delgado Amaro on 05-12-2024 Manual differential comment Jd (Bld) [Interp] COMMENT [facility] Comment on above: 1+ ANISO. Blood urea nitrogen (BUN)/cr eatinine ratioOrdered By: Delgado Amaro on 05-12-2024 Urea nitrogen/Creatinine [Mass ratio] 26.5 mg/mg High 10-20 [facility] CBC-Complete Blood Cnt No Di ffon 05-12-2024 Erythrocyte distribution width (RBC) [Ratio] 20.8 % High 11.6-14.6 [facility] Comment on above: Performed By: #### L 100.0500, L506.1000, L100.4500, L500.4050, L503.6620 ####[facility] [address] [place], [place], [phone] Hematocrit (Bld) [Volume fraction] 31.4 % Low 37-47 [facility] Comment on above: Performed By: #### L 100.0500, L506.1000, L100.4500, L500.4050, L503.6620 ####[facility] [address] [place], [address] Hemoglobin (Bld) [Mass/Vol] 9.2 g/dL Low 12.0-15.0 [facility] Comment on above: Performed By: #### L 100.0500, L506.1000, L100.4500, L500.4050, L503.6620 ####[facility] [address] [place], [address] MCH (RBC) [Entitic mass] 23.8 pg Low 27.0-32.0 [facility] Comment on above: Performed By: #### L 100.0500, L506.1000, L100.4500, L500.4050, L503.6620 ####[facility] [address] [place], [address] MCHC (RBC) [Mass/Vol] 29.3 g/dL Low 32-36 [facility] Comment on above: Performed By: #### L 100.0500, L506.1000, L100.4500, L500.4050, L503.6620 ####[facility] [address] [place], [address] MCV (RBC) [Entitic vol] 81.3 fL Normal 81-99 [facility] Comment on above: Performed By: #### L 100.0500, L506.1000, L100.4500, L500.4050, L503.6620 ####[facility] [address] [place], [address] Platelet mean volume (Bld) [Entitic vol] 9.5 fL Normal 6.2-12.0 [facility] Comment on above: Performed By: #### L 100.0500, L506.1000, L100.4500, L500.4050, L503.6620 ####[facility] [address] [place], [address] Platelets (Bld) [#/Vol] 164 10*3/uL Normal 150-450 [facility] Comment on above: Performed By: #### L 100.0500, L506.1000, L100.4500, L500.4050, L503.6620 ####[facility] [address] [place], [address] RBC (Bld) [#/Vol] 3.86 10*6/uL Low 4.2-5.4 [facility] Comment on above: Performed By: #### L 100.0500, L506.1000, L100.4500, L500.4050, L503.6620 ####[facility] [address] [place], [address] RDW SD 60.6 fl High 35.1-43.9 [facility] Comment on above: Performed By: #### L 100.0500, L506.1000, L100.4500, L500.4050, L503.6620 ####[facility] [address] [place], [address] WBC (Bld) [#/Vol] 5.6 10*3/uL Normal 4.4-11.0 [facility] Comment on above: Performed By: #### L 100.0500, L506.1000, L100.4500, L500.4050, L503.6620 ####[facility] [address] [place], [address] Carbon dioxide measurementOr dered By: Delgado Amaro on 05-12-2024 CO2 [Moles/Vol] 30.0 mmol/L 21.0-32.0 [facility] Chloride measurementOrdered By: Delgado Amaro on 05-12-2024 Chloride [Moles/Vol] 103 mmol/L 98-107 [facility] [place] Comprehensive Metabolic Prof ilon 05-12-2024 Albumin [Mass/Vol] 2.6 g/dL Low 3.2-5.0 [facility] Comment on above: Performed By: #### L 100.0500, L506.1000, L100.4500, L500.4050, L503.6620 ####[facility] [address] [place], [address] Albumin/Globulin [Mass ratio] 0.7 {ratio} Low 0.9-2.4 [facility] Comment on above: Performed By: #### L 100.0500, L506.1000, L100.4500, L500.4050, L503.6620 ####[facility] [address] [place], [address] ALK P 109 U/L Normal 45-117 [facility] Comment on above: Performed By: #### L 100.0500, L506.1000, L100.4500, L500.4050, L503.6620 ####[facility] [address] [place], [address] ALT [Catalytic activity/Vol] 14 U/L Normal 13-56 [facility] Comment on above: Performed By: #### L 100.0500, L506.1000, L100.4500, L500.4050, L503.6620 ####[facility] [address] [place], [address] AST [Catalytic activity/Vol] 20 U/L Normal 15-37 [facility] Comment on above: Performed By: #### L 100.0500, L506.1000, L100.4500, L500.4050, L503.6620 ####[facility] [address] [place], [address] Bilirubin [Mass/Vol] 0.20 mg/dL Normal 0.20-1.00 [facility] Comment on above: Result Comment: For patients on eltrombopag therapy, use of Dim[employer] [place] TBIL is not recommended. Performed By: #### L 100.0500, L506.1000, L100.4500, L500.4050, L503.6620 ####[facility] [address] [place], [address] BUN/CRE 26.5 RATIO High 10-20 [facility] Comment on above: Performed By: #### L 100.0500, L506.1000, L100.4500, L500.4050, L503.6620 ####[facility] [address] [place], [address] CA,Total 9.0 mg/dL Normal 8.5-10.1 [facility] Comment on above: Performed By: #### L 100.0500, L506.1000, L100.4500, L500.4050, L503.6620 ####[facility] [address] [place], [address] Chloride [Moles/Vol] 103 mmol/L Normal 98-107 [facility] Comment on above: Performed By: #### L 100.0500, L506.1000, L100.4500, L500.4050, L503.6620 ####[facility] [address] [place], [address] CO2 [Moles/Vol] 30.0 mmol/L Normal 21.0-32.0 [facility] Comment on above: Performed By: #### L 100.0500, L506.1000, L100.4500, L500.4050, L503.6620 ####[facility] [address] [place], [address] Creatinine [Mass/Vol] 1.13 mg/dL High 0.55-1.02 [facility] Comment on above: Result Comment: The validity of the calculated GFR GFRAA in patients over70 years has not been determined. Clinical correlation isessential. Performed By: #### L 100.0500, L506.1000, L100.4500, L500.4050, L503.6620 ####[facility] [address] [place], [address] EST GFR - AA 60 mL/min Normal >60 [facility] Comment on above: Result Comment: Afri can [place] GFR Calc Performed By: #### L 100.0500, L506.1000, L100.4500, L500.4050, L503.6620 ####[facility] [address] [place], [address] GAP 7 Normal 5-15 [facility] Comment on above: Performed By: #### L 100.0500, L506.1000, L100.4500, L500.4050, L503.6620 ####[facility] [address] [place], [address] GFR/1.73 sq M.predicted among non-blacks MDRD (S/P/Bld) [Vol rate/Area] 50 mL/min/{1.73_m2} Low >60 [facility] Comment on above: Result Comment: Non- GFR Calc Performed By: #### L 100.0500, L506.1000, L100.4500, L500.4050, L503.6620 ####[facility] [address] [place], [address] Globulin (S) [Mass/Vol] 3.8 g/dL Normal 2.2-4.2 [facility] Comment on above: Performed By: #### L 100.0500, L506.1000, L100.4500, L500.4050, L503.6620 ####[facility] [address] [place], [address] Glucose [Mass/Vol] 97 mg/dL Normal 74-106 [facility] Comment on above: Performed By: #### L 100.0500, L506.1000, L100.4500, L500.4050, L503.6620 ####[facility] [address] [place], [address] Potassium [Moles/Vol] 3.6 mmol/L Normal 3.5-5.1 [facility] Comment on above: Performed By: #### L 100.0500, L506.1000, L100.4500, L500.4050, L503.6620 ####[facility] [address] [place], [address] Sodium [Moles/Vol] 140 mmol/L Normal 136-145 [facility] Comment on above: Performed By: #### L 100.0500, L506.1000, L100.4500, L500.4050, L503.6620 ####[facility] [address] [place], [address] T PROT 6.4 g/dL Normal 6.4-8.2 [facility] Comment on above: Performed By: #### L 100.0500, L506.1000, L100.4500, L500.4050, L503.6620 ####[facility] [address] [place], [address] Urea nitrogen [Mass/Vol] 30 mg/dL High 7-18 [facility] Comment on above: Performed By: #### L 100.0500, L506.1000, L100.4500, L500.4050, L503.6620 ####[facility] [address] [place], [address] Differential Commenton 05-12 SMEAR COMMENT COMMENT Normal [facility] Comment on above: Result Comment: 1+ A NISO. Performed By: #### L 100.0500, L506.1000, L100.4500, L500.4050, L503.6620 ####[facility] [address] [place], [address] Erythrocyte distribution wid th ratioOrdered By: Delgado Amaro on 05-12-2024 Erythrocyte distribution width (RBC) [Ratio] 20.8 % High 11.6-14.6 [facility] Erythrocyte distribution wid th standard deviationOrdered By: Delgado Amaro on 05-12-2024 Erythrocyte distribution width (RBC) [Entitic vol] 60.6 fL High 35.1-43.9 [facility] Erythrocyte distribution width (RBC) [Ratio] 60.6 fl High 35.1-43.9 [facility] Estimated glomerular filtrat ion rate (GFR) AmericanOrdered By: Delgado Amaro on 05-12-2024 Estimated GFR (MDRD) Amer 60 mL/min >60 [facility] Comment on above: GFR Calc Glomerular filtration rate ( GFR) estimationOrdered By: Delgado Amaro on 05-12-2024 Estimated GFR (MDRD) Non-Af Amer 50 mL/min Low >60 [facility] Comment on above: Non- GFR Calc GFR/1.73 sq M.predicted among non-blacks MDRD (S/P/Bld) [Vol rate/Area] 50 mL/min/{1.73_m2} Low >60 [facility] Comment on above: Non- GFR Calc Glucose measurementOrdered B y: Delgado Amaro on 05-12-2024 Glucose [Mass/Vol] 97 mg/dL 74-106 [facility] Hematocrit Auto (Bld) [Volum e fraction]Ordered By: Delgado Amaro on 05-12-2024 Hematocrit (Bld) [Volume fraction] 31.4 % Low 37-47 [facility] Hemoglobin measurementOrdere d By: Delgado Amaro on 05-12-2024 Hemoglobin (Bld) [Mass/Vol] 9.2 g/dL Low 12.0-15.0 [facility] Laboratory - Chemistry and C hemistry - challengeOrdered By: Delgado Amaro on 05-12-2024 AST [Catalytic activity/Vol] 20 U/L 15-37 [facility] MCV (mean corpuscular volume ) determinationOrdered By: Delgado Amaro on 05-12-2024 MCV (RBC) [Entitic vol] 81.3 fL 81-99 [facility] Manual differential comment Jd (Bld) [Interp]Ordered By: Delgado Amaro on 05-12-2024 Differential Comment COMMENT [facility] Comment on above: 1+ ANISO. Mean corpuscular hemoglobin (MCH) determinationOrdered By: Delgado Amaro on 05-12-2024 MCH (RBC) [Entitic mass] 23.8 pg Low 27.0-32.0 [facility] Mean corpuscular hemoglobin concentration (MCHC) determinationOrdered By: Delgado Amaro on 05-12-2024 MCHC (RBC) [Mass/Vol] 29.3 g/dL Low 32-36 [facility] Mean platelet volume determi nationOrdered By: Delgado Amaro on 05-12-2024 Platelet mean volume (Bld) [Entitic vol] 9.5 fL 6.2-12.0 [facility] Platelet countOrdered By: Kade Amaro on 05-12-2024 Platelets (Bld) [#/Vol] 164 10*3/uL 150-450 [facility] Potassium measurementOrdered By: Delgado Amaro on 05-12-2024 Potassium [Moles/Vol] 3.6 mmol/L 3.5-5.1 [facility] RBC Auto (Bld) [#/Vol]Ordere d By: Delgado Amaro on 05-12-2024 RBC (Bld) [#/Vol] 3.86 10*6/uL Low 4.2-5.4 [facility] Serum anion gap measurementO rdered By: Delgado Amaro on 05-12-2024 Anion gap [Moles/Vol] 7 mmol/L 5-15 [facility] Serum globulin measurementOr dered By: Delgado Amaro on 05-12-2024 Globulin (S) [Mass/Vol] 3.8 g/dL 2.2-4.2 [facility] Serum or plasma alanine sousa otransferase (ALT) measurementOrdered By: Delgado Amaro on 05-12-2024 ALT [Catalytic activity/Vol] 14 U/L 13-56 [facility] Serum or plasma albumin kay urement (mass/volume)Ordered By: Delgado Amaro on 05-12-2024 Albumin [Mass/Vol] 2.6 g/dL Low 3.2-5.0 [facility] Serum or plasma alkaline radha sphatase measurementOrdered By: Delgado Amaro on 05-12-2024 ALP [Catalytic activity/Vol] 109 U/L 45-117 [facility] Serum or plasma calcium kay urement (mass/volume)Ordered By: Delgado Amaro on 05-12-2024 Calcium [Mass/Vol] 9.0 mg/dL 8.5-10.1 [facility] Serum or plasma creatinine m easurement (mass/volume)Ordered By: Delgado Amaro on 05-12-2024 Creatinine [Mass/Vol] 1.13 mg/dL High 0.55-1.02 [facility] Comment on above: The validity of the calculated GFR & GFRAA in patients over 70 years has not been determined. Clinical correlation is essential. Serum or plasma urea nitroge n measurement (mass/volume)Ordered By: Delgado Amaro on 05-12-2024 Urea nitrogen [Mass/Vol] 30 mg/dL High 7-18 [facility] Sodium levelOrdered By: Dimitry Amaro on 05-12-2024 Sodium [Moles/Vol] 140 mmol/L 136-145 [facility] Total proteinOrdered By: Bill Amaro on 05-12-2024 Protein [Mass/Vol] 6.4 g/dL 6.4-8.2 [facility] Vitamin D,25 Hydroxyon 05-12 Vitamin D 25-OH 41.0 ng/mL Normal [facility] Comment on above: Result Comment: Ele min D 25(OH) Status Range Deficiency <20 ng/mL (50nmol/L) Insufficiency 20 - 30 ng/mL (50 - 75 nmol/L) Sufficiency 30 - 100 ng/mL (75 - 250 nmol/L) Toxicity >100 ng/mL (>250 nmol/L) Performed By: #### L 100.0500, L506.1000, L100.4500, L500.4050, L503.6620 ####[facility] [address] [place], [address] White blood cell (WBC) count Ordered By: Delgado Amaro on 05-12-2024 WBC (Bld) [#/Vol] 5.6 10*3/uL 4.4-11.0 [facility] Gastroenterology Visit Repor ton 04-28-2024 Gastroenterology Visit Report Normal [facility] CBC-Complete Blood Cnt No Di ffon 04-14-2024 Erythrocyte distribution width (RBC) [Ratio] 16.0 % High 11.6-14.6 [facility] Comment on above: Performed By: #### L 503.6075, L100.0500, L503.6150, L503.6550 ####[facility] [address] [place], [address] Hematocrit (Bld) [Volume fraction] 26.3 % Low 37-47 [facility] Comment on above: Performed By: #### L 503.6075, L100.0500, L503.6150, L503.6550 ####[facility] [address] [place], [address] Hemoglobin (Bld) [Mass/Vol] 7.7 g/dL Low 12.0-15.0 [facility] Comment on above: Performed By: #### L 503.6075, L100.0500, L503.6150, L503.6550 ####[facility] [address] [place], [address] MCH (RBC) [Entitic mass] 22.8 pg Low 27.0-32.0 [facility] Comment on above: Performed By: #### L 503.6075, L100.0500, L503.6150, L503.6550 ####[facility] [address] [place], [address] MCHC (RBC) [Mass/Vol] 29.3 g/dL Low 32-36 [facility] Comment on above: Performed By: #### L 503.6075, L100.0500, L503.6150, L503.6550 ####[facility] [address] [place], [address] MCV (RBC) [Entitic vol] 78.0 fL Low 81-99 [facility] Comment on above: Performed By: #### L 503.6075, L100.0500, L503.6150, L503.6550 ####[facility] [address] [place], [address] Platelet mean volume (Bld) [Entitic vol] 10.0 fL Normal 6.2-12.0 [facility] Comment on above: Performed By: #### L 503.6075, L100.0500, L503.6150, L503.6550 ####[facility] [address] [place], [address] Platelets (Bld) [#/Vol] 225 10*3/uL Normal 150-450 [facility] Comment on above: Performed By: #### L 503.6075, L100.0500, L503.6150, L503.6550 ####[facility] [address] [place], [address] RBC (Bld) [#/Vol] 3.37 10*6/uL Low 4.2-5.4 [facility] Comment on above: Performed By: #### L 503.6075, L100.0500, L503.6150, L503.6550 ####[facility] [address] [place], [address] RDW SD 45.4 fl High 35.1-43.9 [facility] Comment on above: Performed By: #### L 503.6075, L100.0500, L503.6150, L503.6550 ####[facility] [address] [place], [address] WBC (Bld) [#/Vol] 7.3 10*3/uL Normal 4.4-11.0 [facility] Comment on above: Performed By: #### L 503.6075, L100.0500, L503.6150, L503.6550 ####[facility] [address] [place], [place], [id number] Erythrocyte distribution wid th ratioOrdered By: April Mullen on 04-14-2024 Erythrocyte distribution width (RBC) [Ratio] 16.0 % High 11.6-14.6 [facility] Erythrocyte distribution wid th standard deviationOrdered By: April Mullen on 04-14-2024 Erythrocyte distribution width (RBC) [Entitic vol] 45.4 fL High 35.1-43.9 [facility] Ferritinon 04-14-2024 Ferritin [Mass/Vol] 162 ng/mL Normal 8-252 [facility] Comment on above: Order Comment: 503.2 Performed By: #### L 503.6075, L100.0500, L503.6150, L503.6550 ####[facility] [address] [place], [place], [id number] Ferritin measurementOrdered By: April Mullen on 04-14-2024 Ferritin [Mass/Vol] 162 ng/mL 8-252 [facility] Hematocrit Auto (Bld) [Volum e fraction]Ordered By: April Mullen on 04-14-2024 Hematocrit (Bld) [Volume fraction] 26.3 % Low 37-47 [facility] Hemoglobin measurementOrdere d By: April Mullen on 04-14-2024 Hemoglobin (Bld) [Mass/Vol] 7.7 g/dL Low 12.0-15.0 [facility] Ironon 04-14-2024 Iron [Mass/Vol] 17 ug/dL Low 50-170 [facility] Comment on above: Order Comment: 503.2 Performed By: #### L 503.6075, L100.0500, L503.6150, L503.6550 ####[facility] [address] [place], [place], [phone] (Unsp spec) [Mass/Mass] Ordered By: April Mullen on 04-14-2024 Iron [Mass/Vol] 17 ug/dL Low 50-170 [facility] Iron Binding Capacity,Totalo n 04-14-2024 TIBC 286 ug/dL Normal 250-450 [facility] Comment on above: Order Comment: 503.2 Performed By: #### L 503.6075, L100.0500, L503.2741, L503.6242 ####[facility] [address] [place], [place], [id number] MCV (mean corpuscular volume ) determinationOrdered By: April Mullen on 04-14-2024 MCV (RBC) [Entitic vol] 78.0 fL Low 81-99 [facility] Mean corpuscular hemoglobin (MCH) determinationOrdered By: April Mullen on 04-14-2024 MCH (RBC) [Entitic mass] 22.8 pg Low 27.0-32.0 [facility] Mean corpuscular hemoglobin concentration (MCHC) determinationOrdered By: April Mullen on 04-14-2024 MCHC (RBC) [Mass/Vol] 29.3 g/dL Low 32-36 [facility] Mean platelet volume determi nationOrdered By: April Mullen on 04-14-2024 Platelet mean volume (Bld) [Entitic vol] 10.0 fL 6.2-12.0 [facility] Platelet countOrdered By: Darvin Mullen on 04-14-2024 Platelets (Bld) [#/Vol] 225 10*3/uL 150-450 [facility] RBC Auto (Bld) [#/Vol]Ordere d By: April Mullen on 04-14-2024 RBC (Bld) [#/Vol] 3.37 10*6/uL Low 4.2-5.4 [facility] TIBCOrdered By: April Mullen on 04-14-2024 Total Iron Binding Capacity 286 ug/dL 250-450 [facility] White blood cell (WBC) count Ordered By: April Mullen on 04-14-2024 WBC (Bld) [#/Vol] 7.3 10*3/uL 4.4-11.0 [facility] Automated blood erythrocyte countOrdered By: April Mullen on 04-07-2024 RBC (Bld) [#/Vol] 3.28 10*6/uL Low 4.2-5.4 [facility] Comment on above: Order Comment: [id number] Performed By: #### Hola TS, L100.0500 ####[facility] [id number] [place], [address] Automated blood hematocrit ( percentage)Ordered By: April Mullen on 04-07-2024 Hematocrit (Bld) [Volume fraction] 25.6 % Low 37-47 [facility] Comment on above: Order Comment: 503-2 Performed By: #### Hola TS, L100.0500 ####[facility] [address] [place], [address] CBC-Complete Blood Cnt No Di ffon 04-07-2024 RDW SD 44.5 fl High 35.1-43.9 [facility] Comment on above: Order Comment: 503-2 Performed By: #### Hola TS, L100.0500 ####[facility] [address] [place], [address] Erythrocyte distribution wid th ratioOrdered By: April Mullen on 04-07-2024 Erythrocyte distribution width (RBC) [Ratio] 15.7 % High 11.6-14.6 [facility] Comment on above: Order Comment: 503-2 Performed By: #### B TS, L100.0500 ####[facility] [address] [place], [address] Erythrocyte distribution wid th standard deviationOrdered By: April Mullen on 04-07-2024 Erythrocyte distribution width (RBC) [Entitic vol] 44.5 fL High 35.1-43.9 [facility] Hemoglobin measurementOrdere d By: April Mullen on 04-07-2024 Hemoglobin (Bld) [Mass/Vol] 7.5 g/dL Low 12.0-15.0 [facility] Comment on above: Order Comment: 503-2 Performed By: #### B TS, L100.0500 ####[facility] [address] [place], [address] MCV (mean corpuscular volume ) determinationOrdered By: April Mullen on 04-07-2024 MCV (RBC) [Entitic vol] 78.0 fL Low 81-99 [facility] Comment on above: Order Comment: 503-2 Performed By: #### B TS, L100.0500 ####[facility] [address] [place], [address] Mean corpuscular hemoglobin (MCH) determinationOrdered By: April Lowa on 04-07-2024 MCH (RBC) [Entitic mass] 22.9 pg Low 27.0-32.0 [facility] Comment on above: Order Comment: 503-2 Performed By: #### B TS, L100.0500 ####[facility] [address] [place], [address] Mean corpuscular hemoglobin concentration (MCHC) determinationOrdered By: April Mullen on 04-07-2024 MCHC (RBC) [Mass/Vol] 29.3 g/dL Low 32-36 [facility] Comment on above: Order Comment: 503-2 Performed By: #### B TS, L100.0500 ####[facility] [address] [place], [address] Mean platelet volume determi nationOrdered By: April Mullen on 04-07-2024 Platelet mean volume (Bld) [Entitic vol] 10.1 fL Normal 6.2-12.0 [facility] Comment on above: Order Comment: 503-2 Performed By: #### B TS, L100.0500 ####[facility] [address] [place], [address] Platelet countOrdered By: Darvin Mullen on 04-07-2024 Platelets (Bld) [#/Vol] 203 10*3/uL Normal 150-450 [facility] Comment on above: Order Comment: 503-2 Performed By: #### B NAUN, L100.0500 ####[facility] [address] [place], [address] Type AND Screenon 04-07-2024 Ab SCREEN GEL Negative Normal [facility] Comment on above: Order Comment: 503-2 A Performed By: #### B NAUN, L100.0500 ####[facility] [address] [place], [address] White blood cell (WBC) count Ordered By: April Mullen on 04-07-2024 WBC (Bld) [#/Vol] 6.7 10*3/uL Normal 4.4-11.0 [facility] Comment on above: Order Comment: 503-2 Performed By: #### Hola MAGALLON, L100.0500 ####[facility] [address] [place], [address] CBC-Complete Blood Cnt No Di ffon 04-03-2024 Erythrocyte distribution width (RBC) [Ratio] 15.7 % High 11.6-14.6 [facility] Comment on above: Order Comment: 503.2 Performed By: #### L 100.0500 ####[facility] [address] [place], [address] Hematocrit (Bld) [Volume fraction] 24.8 % Low 37-47 [facility] Comment on above: Order Comment: 503.2 Performed By: #### L 100.0500 ####[facility] [address] [place], [address] Hemoglobin (Bld) [Mass/Vol] 7.2 g/dL Low 12.0-15.0 [facility] Comment on above: Order Comment: 503.2 Performed By: #### L 100.0500 ####[facility] [address] [place], [address] MCH (RBC) [Entitic mass] 22.9 pg Low 27.0-32.0 [facility] Comment on above: Order Comment: 503.2 Performed By: #### L 100.0500 ####[facility] [address] [place], [address] MCHC (RBC) [Mass/Vol] 29.0 g/dL Low 32-36 [facility] Comment on above: Order Comment: 503.2 Performed By: #### L 100.0500 ####[facility] [address] [place], [address] MCV (RBC) [Entitic vol] 78.7 fL Low 81-99 [facility] Comment on above: Order Comment: 503.2 Performed By: #### L 100.0500 ####[facility] [address] [place], [address] Platelet mean volume (Bld) [Entitic vol] 9.8 fL Normal 6.2-12.0 [facility] Comment on above: Order Comment: 503.2 Performed By: #### L 100.0500 ####[facility] [address] [place], [address] Platelets (Bld) [#/Vol] 155 10*3/uL Normal 150-450 [facility] Comment on above: Order Comment: 503.2 Performed By: #### L 100.0500 ####[facility] [address] [place], [address] RBC (Bld) [#/Vol] 3.15 10*6/uL Low 4.2-5.4 [facility] Comment on above: Order Comment: 503.2 Performed By: #### L 100.0500 ####[facility] [address] [place], [address] RDW SD 44.7 fl High 35.1-43.9 [facility] Comment on above: Order Comment: 503.2 Performed By: #### L 100.0500 ####[facility] [address] [place], [place], [phone] WBC (Bld) [#/Vol] 5.9 10*3/uL Normal 4.4-11.0 [facility] Comment on above: Order Comment: 503.2 Performed By: #### L 100.0500 ####[facility] [address] [place], [place], [phone] Erythrocyte distribution wid th ratioOrdered By: April Mullen on 04-03-2024 Erythrocyte distribution width (RBC) [Ratio] 15.7 % High 11.6-14.6 [facility] Erythrocyte distribution wid th standard deviationOrdered By: April Mullen on 04-03-2024 Erythrocyte distribution width (RBC) [Entitic vol] 44.7 fL High 35.1-43.9 [facility] Hematocrit Auto (Bld) [Volum e fraction]Ordered By: April Mullen on 04-03-2024 Hematocrit (Bld) [Volume fraction] 24.8 % Low 37-47 [facility] Hemoglobin measurementOrdere d By: April Mullen on 04-03-2024 Hemoglobin (Bld) [Mass/Vol] 7.2 g/dL Low 12.0-15.0 [facility] MCV (mean corpuscular volume ) determinationOrdered By: April Mullen on 04-03-2024 MCV (RBC) [Entitic vol] 78.7 fL Low 81-99 [facility] Mean corpuscular hemoglobin (MCH) determinationOrdered By: April Mullen on 04-03-2024 MCH (RBC) [Entitic mass] 22.9 pg Low 27.0-32.0 [facility] Mean corpuscular hemoglobin concentration (MCHC) determinationOrdered By: April Mullen on 04-03-2024 MCHC (RBC) [Mass/Vol] 29.0 g/dL Low 32-36 [facility] Mean platelet volume determi nationOrdered By: April Mullen on 04-03-2024 Platelet mean volume (Bld) [Entitic vol] 9.8 fL 6.2-12.0 [facility] Platelet countOrdered By: Darvin Mullen on 04-03-2024 Platelets (Bld) [#/Vol] 155 10*3/uL 150-450 [facility] RBC Auto (Bld) [#/Vol]Ordere d By: April Mullen on 04-03-2024 RBC (Bld) [#/Vol] 3.15 10*6/uL Low 4.2-5.4 [facility] White blood cell (WBC) count Ordered By: April Mullen on 04-03-2024 WBC (Bld) [#/Vol] 5.9 10*3/uL 4.4-11.0 [facility] 12 Lead EKGon 03-28-2024 12 Lead EKG Normal [facility] Basic Metabolic Profile (BMP )on 03-28-2024 BUN/CRE 20.2 RATIO High - [facility] Comment on above: Order Comment: 503.2 Performed By: #### L 100.0500, L500.2500, L500.4100, L501.9985 ####[facility] [address] [place], [address] CA,Total 8.8 mg/dL Normal 8.5-10.1 [facility] Comment on above: Order Comment: 503.2 Performed By: #### L 100.0500, L500.2500, L500.4100, L501.9985 ####[facility] [address] [place], [address] Chloride [Moles/Vol] 104 mmol/L Normal 98-107 [facility] Comment on above: Order Comment: 503.2 Performed By: #### L 100.0500, L500.2500, L500.4100, L501.9985 ####[facility] [address] [place], [address] CO2 [Moles/Vol] 28.0 mmol/L Normal 21.0-32.0 [facility] Comment on above: Order Comment: 503.2 Performed By: #### L 100.0500, L500.2500, L500.4100, L501.9985 ####[facility] [address] [place], [address] Creatinine [Mass/Vol] 1.09 mg/dL High 0.55-1.02 [facility] Comment on above: Order Comment: 503.2 Result Comment: The validity of the calculated GFR GFRAA in patients over70 years has not been determined. Clinical correlation isessential. Performed By: #### L 100.0500, L500.2500, L500.4100, L501.9985 ####[facility] [address] [place], [address] EST GFR - AA 63 mL/min Normal >60 [facility] Comment on above: Order Comment: 503.2 Result Comment: Afri can [place] GFR Calc Performed By: #### L 100.0500, L500.2500, L500.4100, L501.9985 ####[facility] [address] [place], [address] GAP 5 Normal 5-15 [facility] Comment on above: Order Comment: 503.2 Performed By: #### L 100.0500, L500.2500, L500.4100, L501.9985 ####[facility] [address] [place], [address] GFR/1.73 sq M.predicted among non-blacks MDRD (S/P/Bld) [Vol rate/Area] 52 mL/min/{1.73_m2} Low >60 [facility] Comment on above: Order Comment: 503.2 Result Comment: Non- GFR Calc Performed By: #### L 100.0500, L500.2500, L500.4100, L501.9985 ####[facility] [address] [place], [address] Glucose [Mass/Vol] 112 mg/dL High 74-106 [facility] Comment on above: Order Comment: 503.2 Result Comment: Fast ing Glucose result from 100 to 125 mg/dLsuggests IMPAIRED HOMEOSTASIS per A.D.A. criteria. Performed By: #### L 100.0500, L500.2500, L500.4100, L501.9985 ####[facility] [address] [place], [address] Potassium [Moles/Vol] 3.9 mmol/L Normal 3.5-5.1 [facility] Comment on above: Order Comment: 503.2 Performed By: #### L 100.0500, L500.2500, L500.4100, L501.9985 ####[facility] [address] [place], [address] Sodium [Moles/Vol] 136 mmol/L Normal 136-145 [facility] Comment on above: Order Comment: 503.2 Performed By: #### L 100.0500, L500.2500, L500.4100, L501.9985 ####[facility] [address] [place], [address] Urea nitrogen [Mass/Vol] 22 mg/dL High 7-18 [facility] Comment on above: Order Comment: 503.2 Performed By: #### L 100.0500, L500.2500, L500.4100, L501.9985 ####[facility] [address] [place], [address] Bilirubin directOrdered By: Sujatha Hebert on 03-28-2024 Bilirubin.direct [Mass/Vol] 0.12 mg/dL 0.00-0.30 [facility] Bilirubin, totalOrdered By: Sujatha Hebert on 03-28-2024 Bilirubin [Mass/Vol] 0.20 mg/dL 0.20-1.00 [facility] Comment on above: For patients on eltr ombopag therapy, use of Dimension [place] TBIL is not recommended. Blood urea nitrogen (BUN)/cr eatinine ratioOrdered By: Dominic Lim on 03-28-2024 Urea nitrogen/Creatinine [Mass ratio] 20.2 mg/mg High 10-20 [facility] CBC-Complete Blood Cnt No Di ffon 03-28-2024 Erythrocyte distribution width (RBC) [Ratio] 15.9 % High 11.6-14.6 [facility] Comment on above: Order Comment: 503.2 Performed By: #### L 100.0500, L500.2500, L500.4100, L501.9985 ####[facility] [address] [place], [address] Hematocrit (Bld) [Volume fraction] 23.3 % Low 37-47 [facility] Comment on above: Order Comment: 503.2 Performed By: #### L 100.0500, L500.2500, L500.4100, L501.9985 ####[facility] [address] [place], [address] Hemoglobin (Bld) [Mass/Vol] 6.9 g/dL Low 12.0-15.0 [facility] Comment on above: Order Comment: 503.2 Performed By: #### L 100.0500, L500.2500, L500.4100, L501.9985 ####[facility] [address] [place], [address] MCH (RBC) [Entitic mass] 23.2 pg Low 27.0-32.0 [facility] Comment on above: Order Comment: 503.2 Performed By: #### L 100.0500, L500.2500, L500.4100, L501.9985 ####[facility] [address] [place], [address] MCHC (RBC) [Mass/Vol] 29.6 g/dL Low 32-36 [facility] Comment on above: Order Comment: 503.2 Performed By: #### L 100.0500, L500.2500, L500.4100, L501.9985 ####[facility] [address] [place], [address] MCV (RBC) [Entitic vol] 78.5 fL Low 81-99 [facility] Comment on above: Order Comment: 503.2 Performed By: #### L 100.0500, L500.2500, L500.4100, L501.9985 ####[facility] [address] [place], [address] Platelet mean volume (Bld) [Entitic vol] 9.7 fL Normal 6.2-12.0 [facility] Comment on above: Order Comment: 503.2 Performed By: #### L 100.0500, L500.2500, L500.4100, L501.9985 ####[facility] [address] [place], [address] Platelets (Bld) [#/Vol] 172 10*3/uL Normal 150-450 [facility] Comment on above: Order Comment: 503.2 Performed By: #### L 100.0500, L500.2500, L500.4100, L501.9985 ####[facility] [address] [place], [address] RBC (Bld) [#/Vol] 2.97 10*6/uL Low 4.2-5.4 [facility] Comment on above: Order Comment: 503.2 Performed By: #### L 100.0500, L500.2500, L500.4100, L501.9985 ####[facility] [address] [place], [address] RDW SD 45.1 fl High 35.1-43.9 [facility] Comment on above: Order Comment: 503.2 Performed By: #### L 100.0500, L500.2500, L500.4100, L501.9985 ####[facility] [address] [place], [address] WBC (Bld) [#/Vol] 5.4 10*3/uL Normal 4.4-11.0 [facility] Comment on above: Order Comment: 503.2 Performed By: #### L 100.0500, L500.2500, L500.4100, L501.9985 ####[facility] [address] [place], [address] Carbon dioxide measurementOr dered By: Dominic Lim on 03-28-2024 CO2 [Moles/Vol] 28.0 mmol/L 21.0-32.0 [facility] Chloride measurementOrdered By: Dominic Lim on 03-28-2024 Chloride [Moles/Vol] 104 mmol/L 98-107 [facility] Emergency Department Summary on 03-28-2024 Emergency Department Summary Normal [facility] Erythrocyte distribution wid th ratioOrdered By: Dominic Lim on 03-28-2024 Erythrocyte distribution width (RBC) [Ratio] 15.9 % High 11.6-14.6 [facility] Erythrocyte distribution wid th standard deviationOrdered By: Dominic Lim on 03-28-2024 Erythrocyte distribution width (RBC) [Entitic vol] 45.1 fL High 35.1-43.9 [facility] Estimated glomerular filtrat ion rate (GFR) AmericanOrdered By: Dominic Lim on 03-28-2024 Estimated GFR (MDRD) Amer 63 mL/min >60 [facility] Comment on above: GFR Calc Glomerular filtration rate ( GFR) estimationOrdered By: Dominic Lim on 03-28-2024 Estimated GFR (MDRD) Non-Af Amer 52 mL/min Low >60 [facility] Comment on above: Non- GFR Calc Glucose measurementOrdered B y: Dominic Lim on 03-28-2024 Glucose [Mass/Vol] 112 mg/dL High 74-106 [facility] Comment on above: Fasting Glucose resu lt from 100 to 125 mg/dL suggests IMPAIRED HOMEOSTASIS per A.D.A. criteria. HH, Hemoglobin AND Hematocri ton 03-28-2024 Hematocrit (Bld) [Volume fraction] 23.3 % Low [address] [place] [address] Comment on above: Performed By: #### L 100.0600 ####[facility] [address] [place], [address] Hemoglobin (Bld) [Mass/Vol] 7.1 g/dL Low 12.0-15.0 [facility] Comment on above: Performed By: #### L 100.0600 ####[facility] [address] [place], [address] Hematocrit (Bld) [Volume fraction] 25.0 % Low [address] [place] [address] Comment on above: Performed By: #### L 100.0600, BTS, M100.7900 ####[facility] [address] [place], [address] Hemoglobin (Bld) [Mass/Vol] 7.7 g/dL Low 12.0-15.0 [facility] Comment on above: Performed By: #### L 100.0600, BTS, M100.7900 ####[facility] [address] [place], [address] Hematocrit Auto (Bld) [Volum e fraction]Ordered By: Sujatha Hebert on 03-28-2024 Hematocrit (Bld) [Volume fraction] 23.3 % Low [address] [place] [address] Hematocrit Auto (Bld) [Volum e fraction]Ordered By: Dominic Lim on 03-28-2024 Hematocrit (Bld) [Volume fraction] 23.3 % Low [address] [place] [address] Hemoglobin A1con 03-28-2024 HbA1c (Bld) [Mass fraction] 5.6 % Normal 3.8-5.6 [facility] Comment on above: Order Comment: 503.2 Result Comment: Norm al < 5.7 % Prediabetic 5.7 - 6.4 % Diabetic >or= 6.5 % Please note range changes. Performed By: #### L 100.0500, L500.2500, L500.4100, L501.9985 ####[facility] [address] [place], [address] Hemoglobin A1c percentageOrd ered By: Dominic Lim on 03-28-2024 HbA1c (Bld) [Mass fraction] 5.6 % 3.8-5.6 [facility] Comment on above: Normal < 5.7 % Predi abetic 5.7 - 6.4 % Diabetic >or= 6.5 % Please note range changes. Hemoglobin measurementOrdere d By: Sujatha Hebert on 03-28-2024 Hemoglobin (Bld) [Mass/Vol] 7.1 g/dL Low 12.0-15.0 [facility] Hemoglobin measurementOrdere d By: Dominic Lim on 03-28-2024 Hemoglobin (Bld) [Mass/Vol] 6.9 g/dL Low 12.0-15.0 [facility] High density lipoprotein (HD L) measurementOrdered By: Dominic Lim on 03-28-2024 Cholesterol in HDL [Mass/Vol] 58 mg/dL >40 [facility] Comment on above: The drugs N-Acetylcy steine and Metamizole may falsely depress this assay. Reference Range HDL <40 mg/dL Low HDL Cholesterol HDL >or= 60 mg/dL High HDL Cholesterol L501.4020on 03-28-2024 TROPONIN-I HS 14 pg/mL Normal 3.0-54.0 [facility] Comment on above: Order Comment: 'TROP ' Serial specimen #1, #2 or #3: 1 Result Comment: Plea se Note: New Test Units and Gender Specific Reference Ranges. For more information see Policy Stat Procedure [place] High Sensitivity Troponin (TNIH) and attachments. Performed By: #### L 501.4020, L501.2450, L500.3400 ####[facility] [address] [place], [place], [id number] Laboratory - Chemistry and C hemistry - challengeOrdered By: Sujatha Hebert on 03-28-2024 AST [Catalytic activity/Vol] 14 U/L Low 15-37 [facility] Lipaseon 03-28-2024 Lipase [Catalytic activity/Vol] 18 U/L Normal - [facility] Comment on above: Order Comment: 'TROP ' Serial specimen #1, #2 or #3: 1 Result Comment: Kalli torres note:LIPASE revised reference range effective 22.New Lipase methodology. Expected to produce lower valuesthan the previous assay method.NEW Reference Range: 13 - 75 U/L Performed By: #### L 501.4020, L501.2450, L500.3400 ####[facility] [address] [place], [address] Lipase measurementOrdered By : Sujatha Hebert on 03-28-2024 Lipase [Catalytic activity/Vol] 18 U/L [facility] Comment on above: Please note:LIPASE r evised reference range effective 22. New Lipase methodology. Expected to produce lower values than the previous assay method. NEW Reference Range: 13 - 75 U/L Lipid Profileon 03-28-2024 Cholesterol [Mass/Vol] 140 mg/dL Normal 200 [facility] Comment on above: Order Comment: 503.2 Result Comment: <200 mg/dL Desirable 200-240 mg/dL Borderline >240 mg/dL High Risk Performed By: #### L 100.0500, L500.2500, L500.4100, L501.9985 ####[facility] [address] [place], [address] Cholesterol in HDL [Mass/Vol] 58 mg/dL Normal [facility] Comment on above: Order Comment: 503.2 Result Comment: The drugs N-Acetylcysteine and Metamizole may falselydepress this assay. Reference Range HDL <40 mg/dL Low HDL Cholesterol HDL >or= 60 mg/dL High HDL Cholesterol Performed By: #### L 100.0500, L500.2500, L500.4100, L501.9985 ####[facility] [address] [place], [address] Cholesterol in LDL [Mass/Vol] 62 mg/dL Normal 0-130 [facility] Comment on above: Order Comment: 503.2 Performed By: #### L 100.0500, L500.2500, L500.4100, L501.9985 ####[facility] [address] [place], [address] Cholesterol in VLDL [Mass/Vol] 20 mg/dL Normal 5-40 [facility] Comment on above: Order Comment: 503.2 Performed By: #### L 100.0500, L500.2500, L500.4100, L501.9985 ####[facility] [address] [place], [address] Triglyceride [Mass/Vol] 98 mg/dL Normal [facility] Comment on above: Order Comment: 503.2 Result Comment: The drugs N-Acetylcysteine and Metamizole may falselydepress this assay.Serum Triglycerides Reference Interval Normal <150 mg/dL Borderline high 150 - 199 mg/dL High 200 - 499 mg/dL Very High > or = 500 mg/dL Performed By: #### L 100.0500, L500.2500, L500.4100, L501.9985 ####[facility] [address] [place], [address] Liver Profileon 03-28-2024 Albumin [Mass/Vol] 2.4 g/dL Low 3.2-5.0 [facility] Comment on above: Order Comment: 'TROP ' Serial specimen #1, #2 or #3: 1 Performed By: #### L 501.4020, L501.2450, L500.3400 ####[facility] [address] [place], [address] ALK P 126 U/L High 45-117 [facility] Comment on above: Order Comment: 'TROP ' Serial specimen #1, #2 or #3: 1 Performed By: #### L 501.4020, L501.2450, L500.3400 ####[facility] [address] [place], [address] ALT [Catalytic activity/Vol] 13 U/L Normal 13-56 [facility] Comment on above: Order Comment: 'TROP ' Serial specimen #1, #2 or #3: 1 Performed By: #### L 501.4020, L501.2450, L500.3400 ####[facility] [address] [place], [address] AST [Catalytic activity/Vol] 14 U/L Low 15-37 [facility] Comment on above: Order Comment: 'TROP ' Serial specimen #1, #2 or #3: 1 Performed By: #### L 501.4020, L501.2450, L500.3400 ####[facility] [address] [place], [address] Bilirubin [Mass/Vol] 0.20 mg/dL Normal 0.20-1.00 [facility] Comment on above: Order Comment: 'TROP ' Serial specimen #1, #2 or #3: 1 Result Comment: For patients on eltrombopag therapy, use of Dimension [place] TBIL is not recommended. Performed By: #### L 501.4020, L501.2450, L500.3400 ####[facility] [address] [place], [address] Bilirubin.direct [Mass/Vol] 0.12 mg/dL Normal 0.00-0.30 [facility] Comment on above: Order Comment: 'TROP ' Serial specimen #1, #2 or #3: 1 Performed By: #### L 501.4020, L501.2450, L500.3400 ####[facility] [address] [place], [address] Globulin (S) [Mass/Vol] 3.5 g/dL Normal 2.2-4.2 [facility] Comment on above: Order Comment: 'TROP ' Serial specimen #1, #2 or #3: 1 Performed By: #### L 501.4020, L501.2450, L500.3400 ####[facility] [address] [place], [place], [address] T PROT 5.9 g/dL Low 6.4-8.2 [facility] Comment on above: Order Comment: 'TROP ' Serial specimen #1, #2 or #3: 1 Performed By: #### L 501.4020, L501.2450, L500.3400 ####[facility] [address] [place], [address] Low density lipoprotein (LDL ) cholesterol measurementOrdered By: Dominic Lim on 03-28-2024 Cholesterol in LDL [Mass/Vol] 62 mg/dL 0-130 [facility] Lower GI hemoglobin IA Ql (S tl)Ordered By: Sujatha Hebert on 03-28-2024 Stool Occult Blood (MOOSE) Positive Abnormal [facility] Stool Occult Blood (MOOSE) Positive Abnormal [facility] MCV (mean corpuscular volume ) determinationOrdered By: Dominic Lim on 03-28-2024 MCV (RBC) [Entitic vol] 78.5 fL Low 81-99 [facility] Mean corpuscular hemoglobin (MCH) determinationOrdered By: Dominic Lim on 03-28-2024 MCH (RBC) [Entitic mass] 23.2 pg Low 27.0-32.0 [facility] Mean corpuscular hemoglobin concentration (MCHC) determinationOrdered By: Dominic Lim on 03-28-2024 MCHC (RBC) [Mass/Vol] 29.6 g/dL Low 32-36 [facility] Mean platelet volume determi nationOrdered By: Dominic Lim on 03-28-2024 Platelet mean volume (Bld) [Entitic vol] 9.7 fL 6.2-12.0 [facility] Platelet countOrdered By: Fidelia ul Carina on 03-28-2024 Platelets (Bld) [#/Vol] 172 10*3/uL 150-450 [facility] Potassium measurementOrdered By: Dominic Lim on 03-28-2024 Potassium [Moles/Vol] 3.9 mmol/L 3.5-5.1 [facility] RBC Auto (Bld) [#/Vol]Ordere d By: Dominic Lim on 03-28-2024 RBC (Bld) [#/Vol] 2.97 10*6/uL Low 4.2-5.4 [facility] Serum anion gap measurementO rdered By: Dominic Lim on 03-28-2024 Anion gap [Moles/Vol] 5 mmol/L 5-15 [facility] Serum globulin measurementOr dered By: Sujatha Hebert on 03-28-2024 Globulin (S) [Mass/Vol] 3.5 g/dL 2.2-4.2 [facility] Serum or plasma alanine sousa otransferase (ALT) measurementOrdered By: Sujatha Hebert on 03-28-2024 ALT [Catalytic activity/Vol] 13 U/L 13-56 [facility] Serum or plasma albumin kay urement (mass/volume)Ordered By: Sujatha Hebert on 03-28-2024 Albumin [Mass/Vol] 2.4 g/dL Low 3.2-5.0 [facility] Serum or plasma alkaline radha sphatase measurementOrdered By: Sujatha Hebert on 03-28-2024 ALP [Catalytic activity/Vol] 126 U/L High 45-117 [facility] Serum or plasma calcium kay urement (mass/volume)Ordered By: Dominic Lim on 03-28-2024 Calcium [Mass/Vol] 8.8 mg/dL 8.5-10.1 [facility] Serum or plasma cholesterol measurement (mass/volume)Ordered By: Dominic Lim on 03-28-2024 Cholesterol [Mass/Vol] 140 mg/dL <200 [facility] Comment on above: <200 mg/dL Desirable 200-240 mg/dL Borderline >240 mg/dL High Risk Serum or plasma creatinine m easurement (mass/volume)Ordered By: Dominic Lim on 03-28-2024 Creatinine [Mass/Vol] 1.09 mg/dL High 0.55-1.02 [facility] Comment on above: The validity of the calculated GFR & GFRAA in patients over 70 years has not been determined. Clinical correlation is essential. Serum or plasma urea nitroge n measurement (mass/volume)Ordered By: Dominic Lim on 03-28-2024 Urea nitrogen [Mass/Vol] 22 mg/dL High 7-18 [facility] Sodium levelOrdered By: Dominic Lim on 03-28-2024 Sodium [Moles/Vol] 136 mmol/L 136-145 [facility] Stool Occult Blood iFOBon STOB Positive Normal [facility] Comment on above: Performed By: #### L 100.0600, BTS, M100.7900 ####[facility] [address] [place], [place], [id number] Total proteinOrdered By: Emanuel Hebert on 03-28-2024 Protein [Mass/Vol] 5.9 g/dL Low 6.4-8.2 [facility] Triglycerides measurementOrd ered By: Dominic Lim on 03-28-2024 Triglyceride [Mass/Vol] 98 mg/dL <199 [facility] Comment on above: The drugs N-Acetylcy steine and Metamizole may falsely depress this assay.Serum Triglycerides Reference Interval Normal <150 mg/dL Borderline high 150 - 199 mg/dL High 200 - 499 mg/dL Very High > or = 500 mg/dL Troponin IOrdered By: Rica Hebert on 03-28-2024 Troponin I High Sensitivity 14 pg/mL 3.0-54.0 [facility] Comment on above: Please Note: [place] t Units and Gender Specific Reference Ranges. For more information see Policy Stat Procedure [place] High Sensitivity Troponin (TNIH) and attachments. Type AND Screenon 03-28-2024 ABO and Rh group Nom (Bld) Blood group O Rh(D) positive Normal [facility] Comment on above: Order Comment: A Performed By: #### L 100.0600, BTS, M100.7900 ####[facility] [address] [place], [place], [id number] Very low density lipoprotein (VLDL) cholesterol measurementOrdered By: Dominic Lim on 03-28-2024 VLDL Cholesterol 20 mg/dL 5-40 [facility] White blood cell (WBC) count Ordered By: Dominic Lim on 03-28-2024 WBC (Bld) [#/Vol] 5.4 10*3/uL 4.4-11.0 [facility] Basic Metabolic Profile (BMP )on 02-27-2024 BUN/CRE 21.2 RATIO High -20 [facility] Comment on above: Order Comment: 503.2 Performed By: #### L 100.0500, L500.2500 ####[facility] [address] [place], [address] CA,Total 8.6 mg/dL Normal 8.5-10.1 [facility] Comment on above: Order Comment: 503.2 Performed By: #### L 100.0500, L500.2500 ####[facility] [address] [place], [address] Chloride [Moles/Vol] 104 mmol/L Normal 98-107 [facility] Comment on above: Order Comment: 503.2 Performed By: #### L 100.0500, L500.2500 ####[facility] [address] [place], [address] CO2 [Moles/Vol] 28.0 mmol/L Normal 21.0-32.0 [facility] Comment on above: Order Comment: 503.2 Performed By: #### L 100.0500, L500.2500 ####[facility] [address] [place], [address] Creatinine [Mass/Vol] 1.13 mg/dL High 0.55-1.02 [facility] Comment on above: Order Comment: 503.2 Result Comment: The validity of the calculated GFR GFRAA in patients over70 years has not been determined. Clinical correlation isessential. Performed By: #### L 100.0500, L500.2500 ####[facility] [address] [place], [address] EST GFR - AA 60 mL/min Normal >60 [facility] Comment on above: Order Comment: 503.2 Result Comment: Afri can [place] GFR Calc Performed By: #### L 100.0500, L500.2500 ####[facility] [address] [place], [address] GAP 7 Normal 5-15 [facility] Comment on above: Order Comment: 503.2 Performed By: #### L 100.0500, L500.2500 ####[facility] [address], [address] GFR/1.73 sq M.predicted among non-blacks MDRD (S/P/Bld) [Vol rate/Area] 50 mL/min/{1.73_m2} Low >60 [facility] Comment on above: Order Comment: 503.2 Result Comment: Non- GFR Calc Performed By: #### L 100.0500, L500.2500 ####[facility] [address], [address] Glucose [Mass/Vol] 106 mg/dL Normal 74-106 [facility] Comment on above: Order Comment: 503.2 Result Comment: Fast ing Glucose result from 100 to 125 mg/dLsuggests IMPAIRED HOMEOSTASIS per A.D.A. criteria. Performed By: #### L 100.0500, L500.2500 ####[facility] [address], [address] Potassium [Moles/Vol] 3.9 mmol/L Normal 3.5-5.1 [facility] Comment on above: Order Comment: 503.2 Performed By: #### L 100.0500, L500.2500 ####[facility] [address] [place], [address] Sodium [Moles/Vol] 139 mmol/L Normal 136-145 [facility] Comment on above: Order Comment: 503.2 Performed By: #### L 100.0500, L500.2500 ####[facility] [address] [place], [address] Urea nitrogen [Mass/Vol] 24 mg/dL High 7-18 [facility] Comment on above: Order Comment: 503.2 Performed By: #### L 100.0500, L500.2500 ####[facility] [address] [place], [address] Blood urea nitrogen (BUN)/cr eatinine ratioOrdered By: Dominic Lim on 02-27-2024 Urea nitrogen/Creatinine [Mass ratio] 21.2 mg/mg High 10-20 [facility] CBC-Complete Blood Cnt No Di ffon 02-27-2024 Erythrocyte distribution width (RBC) [Ratio] 15.6 % High 11.6-14.6 [facility] Comment on above: Order Comment: 503.2 Performed By: #### L 100.0500, L500.2500 ####[facility] [address] [place], [address] Hematocrit (Bld) [Volume fraction] 26.7 % Low 37-47 [facility] Comment on above: Order Comment: 503.2 Performed By: #### L 100.0500, L500.2500 ####[facility] [address] [place], [address] Hemoglobin (Bld) [Mass/Vol] 7.8 g/dL Low 12.0-15.0 [facility] Comment on above: Order Comment: 503.2 Performed By: #### L 100.0500, L500.2500 ####[facility] [address] [place], [address] MCH (RBC) [Entitic mass] 23.9 pg Low 27.0-32.0 [facility] Comment on above: Order Comment: 503.2 Performed By: #### L 100.0500, L500.2500 ####[facility] [address] [place], [address] MCHC (RBC) [Mass/Vol] 29.2 g/dL Low 32-36 [facility] Comment on above: Order Comment: 503.2 Performed By: #### L 100.0500, L500.2500 ####[facility] [address] [place], [address] MCV (RBC) [Entitic vol] 81.7 fL Normal 81-99 [facility] Comment on above: Order Comment: 503.2 Performed By: #### L 100.0500, L500.2500 ####[facility] [address] [place], [address] Platelet mean volume (Bld) [Entitic vol] 9.7 fL Normal 6.2-12.0 [facility] Comment on above: Order Comment: 503.2 Performed By: #### L 100.0500, L500.2500 ####[facility] [address] [place], [address] Platelets (Bld) [#/Vol] 196 10*3/uL Normal 150-450 [facility] Comment on above: Order Comment: 503.2 Performed By: #### L 100.0500, L500.2500 ####[facility] [address] [place], [address] RBC (Bld) [#/Vol] 3.27 10*6/uL Low 4.2-5.4 [facility] Comment on above: Order Comment: 503.2 Performed By: #### L 100.0500, L500.2500 ####[facility] [address] [place], [address] RDW SD 46.1 fl High 35.1-43.9 [facility] Comment on above: Order Comment: 503.2 Performed By: #### L 100.0500, L500.2500 ####[facility] [address] [place], [address] WBC (Bld) [#/Vol] 6.3 10*3/uL Normal 4.4-11.0 [facility] Comment on above: Order Comment: 503.2 Performed By: #### L 100.0500, L500.2500 ####[facility] [address] [place], [address] Carbon dioxide measurementOr dered By: Dominic Lim on 02-27-2024 CO2 [Moles/Vol] 28.0 mmol/L 21.0-32.0 [facility] Chloride measurementOrdered By: Dominic Lim on 02-27-2024 Chloride [Moles/Vol] 104 mmol/L 98-107 [facility] Erythrocyte distribution wid th ratioOrdered By: Dominic Lim on 02-27-2024 Erythrocyte distribution width (RBC) [Ratio] 15.6 % High 11.6-14.6 [facility] Erythrocyte distribution wid th standard deviationOrdered By: Dominic Lim on 02-27-2024 Erythrocyte distribution width (RBC) [Entitic vol] 46.1 fL High 35.1-43.9 [facility] Estimated glomerular filtrat ion rate (GFR) AmericanOrdered By: Dominic Lim on 02-27-2024 Estimated GFR (MDRD) Amer 60 mL/min >60 [facility] Comment on above: GFR Calc Glomerular filtration rate ( GFR) estimationOrdered By: Dominic Lim on 02-27-2024 Estimated GFR (MDRD) Non-Af Amer 50 mL/min Low >60 [facility] Comment on above: Non- GFR Calc Glucose measurementOrdered B y: Dominic Lim on 02-27-2024 Glucose [Mass/Vol] 106 mg/dL 74-106 [facility] Comment on above: Fasting Glucose resu lt from 100 to 125 mg/dL suggests IMPAIRED HOMEOSTASIS per A.D.A. criteria. Hematocrit Auto (Bld) [Volum e fraction]Ordered By: Dominic Lim on 02-27-2024 Hematocrit (Bld) [Volume fraction] 26.7 % Low 37-47 [facility] Hemoglobin measurementOrdere d By: Dominic Lim on 02-27-2024 Hemoglobin (Bld) [Mass/Vol] 7.8 g/dL Low 12.0-15.0 [facility] MCV (mean corpuscular volume ) determinationOrdered By: Dominic Lim on 02-27-2024 MCV (RBC) [Entitic vol] 81.7 fL 81-99 [facility] Mean corpuscular hemoglobin (MCH) determinationOrdered By: Dominic Lim on 02-27-2024 MCH (RBC) [Entitic mass] 23.9 pg Low 27.0-32.0 [facility] Mean corpuscular hemoglobin concentration (MCHC) determinationOrdered By: Dominic Lim on 02-27-2024 MCHC (RBC) [Mass/Vol] 29.2 g/dL Low 32-36 [facility] Mean platelet volume determi nationOrdered By: Dominic Lim on 02-27-2024 Platelet mean volume (Bld) [Entitic vol] 9.7 fL 6.2-12.0 [facility] Platelet countOrdered By: Fidelia Lim on 02-27-2024 Platelets (Bld) [#/Vol] 196 10*3/uL 150-450 [facility] Potassium measurementOrdered By: Dominic Lim on 02-27-2024 Potassium [Moles/Vol] 3.9 mmol/L 3.5-5.1 [facility] RBC Auto (Bld) [#/Vol]Ordere d By: Dominic Lim on 02-27-2024 RBC (Bld) [#/Vol] 3.27 10*6/uL Low 4.2-5.4 [facility] Serum anion gap measurementO rdered By: Dominic Lim on 02-27-2024 Anion gap [Moles/Vol] 7 mmol/L 5-15 [facility] Serum or plasma calcium kay urement (mass/volume)Ordered By: Dominic Lim on 02-27-2024 Calcium [Mass/Vol] 8.6 mg/dL 8.5-10.1 [facility] Serum or plasma creatinine m easurement (mass/volume)Ordered By: Dominic Lim on 02-27-2024 Creatinine [Mass/Vol] 1.13 mg/dL High 0.55-1.02 [facility] Comment on above: The validity of the calculated GFR & GFRAA in patients over 70 years has not been determined. Clinical correlation is essential. Serum or plasma urea nitroge n measurement (mass/volume)Ordered By: Dominic Lim on 02-27-2024 Urea nitrogen [Mass/Vol] 24 mg/dL High 7-18 [facility] Sodium levelOrdered By: Dominic Lim on 02-27-2024 Sodium [Moles/Vol] 139 mmol/L 136-145 [facility] White blood cell (WBC) count Ordered By: Dominic Lim on 02-27-2024 WBC (Bld) [#/Vol] 6.3 10*3/uL 4.4-11.0 [facility] Basic Metabolic Profile (BMP )on 01-29-2024 BUN/CRE 33.3 RATIO High 01-26 [facility] Comment on above: Performed By: #### L 500.2500 ####[facility] [address] [place], [address] CA,Total 8.1 mg/dL Low 8.5-10.1 [facility] Comment on above: Performed By: #### L 500.2500 ####[facility] [address] [place], [address] Chloride [Moles/Vol] 102 mmol/L Normal 98-107 [facility] Comment on above: Performed By: #### L 500.2500 ####[facility] [address] [place], [address] CO2 [Moles/Vol] 33.0 mmol/L High 21.0-32.0 [facility] Comment on above: Performed By: #### L 500.2500 ####[facility] [address] [place], [address] Creatinine [Mass/Vol] 1.05 mg/dL High 0.55-1.02 [facility] Comment on above: Result Comment: The validity of the calculated GFR GFRAA in patients over70 years has not been determined. Clinical correlation isessential. Performed By: #### L 500.2500 ####[facility] [address] [place], [address] EST GFR - AA 66 mL/min Normal >60 [facility] Comment on above: Result Comment: Afri can [place] GFR Calc Performed By: #### L 500.2500 ####[facility] [address] [place], [address] GAP 4 Low 5-15 [facility] Comment on above: Performed By: #### L 500.2500 ####[facility] [address] [place], [address] GFR/1.73 sq M.predicted among non-blacks MDRD (S/P/Bld) [Vol rate/Area] 54 mL/min/{1.73_m2} Low >60 [facility] Comment on above: Result Comment: Non- GFR Calc Performed By: #### L 500.2500 ####[facility] [address] [place], [address] Glucose [Mass/Vol] 101 mg/dL Normal 74-106 [facility] Comment on above: Result Comment: Fast ing Glucose result from 100 to 125 mg/dLsuggests IMPAIRED HOMEOSTASIS per A.D.A. criteria. Performed By: #### L 500.2500 ####[facility] [address] [place], [address] Potassium [Moles/Vol] 3.8 mmol/L Normal 3.5-5.1 [facility] Comment on above: Performed By: #### L 500.2500 ####[facility] [address] [place], [address] Sodium [Moles/Vol] 139 mmol/L Normal 136-145 [facility] Comment on above: Performed By: #### L 500.2500 ####[facility] [address] [place], [address] Urea nitrogen [Mass/Vol] 35 mg/dL High - [facility] Comment on above: Performed By: #### L 500.2500 ####[facility] [address] [place], [address] Basic Metabolic Profile (BMP )on 01-28-2024 BUN/CRE 30.8 RATIO High -20 [facility] Comment on above: Order Comment: 514.1 Performed By: #### L 101.9900, L100.0500, L500.2500, L501.8820 ####[facility] [address] [place], [address] CA,Total 8.3 mg/dL Low 8.5-10.1 [facility] Comment on above: Order Comment: 514.1 Performed By: #### L 101.9900, L100.0500, L500.2500, L501.8820 ####[facility] [address] [place], [address] Chloride [Moles/Vol] 101 mmol/L Normal 98-107 [facility] Comment on above: Order Comment: 514.1 Performed By: #### L 101.9900, L100.0500, L500.2500, L501.8820 ####[facility] [address] [place], [address] CO2 [Moles/Vol] 36.0 mmol/L High 21.0-32.0 [facility] Comment on above: Order Comment: 514.1 Performed By: #### L 101.9900, L100.0500, L500.2500, L501.8820 ####[facility] [address] [place], [address] Creatinine [Mass/Vol] 1.07 mg/dL High 0.55-1.02 [facility] Comment on above: Order Comment: 514.1 Result Comment: The validity of the calculated GFR GFRAA in patients over70 years has not been determined. Clinical correlation isessential. Performed By: #### L 101.9900, L100.0500, L500.2500, L501.8820 ####[facility] [address] [place], [address] EST GFR - AA 64 mL/min Normal >60 [facility] Comment on above: Order Comment: 514.1 Result Comment: Afri can [place] GFR Calc Performed By: #### L 101.9900, L100.0500, L500.2500, L501.8820 ####[facility] [address] [place], [address] GAP 2 Low 5-15 [facility] Comment on above: Order Comment: 514.1 Performed By: #### L 101.9900, L100.0500, L500.2500, L501.8820 ####[facility] [address] [place], [address] GFR/1.73 sq M.predicted among non-blacks MDRD (S/P/Bld) [Vol rate/Area] 53 mL/min/{1.73_m2} Low >60 [facility] Comment on above: Order Comment: 514.1 Result Comment: Non- GFR Calc Performed By: #### L 101.9900, L100.0500, L500.2500, L501.8820 ####[facility] [address] [place], [address] Glucose [Mass/Vol] 111 mg/dL High 74-106 [facility] Comment on above: Order Comment: 514.1 Result Comment: Fast ing Glucose result from 100 to 125 mg/dLsuggests IMPAIRED HOMEOSTASIS per A.D.A. criteria. Performed By: #### L 101.9900, L100.0500, L500.2500, L501.8820 ####[facility] [address] [place], [address] Potassium [Moles/Vol] 3.8 mmol/L Normal 3.5-5.1 [facility] Comment on above: Order Comment: 514.1 Performed By: #### L 101.9900, L100.0500, L500.2500, L501.8820 ####[facility] [address] [place], [address] Sodium [Moles/Vol] 139 mmol/L Normal 136-145 [facility] Comment on above: Order Comment: 514.1 Performed By: #### L 101.9900, L100.0500, L500.2500, L501.8820 ####[facility] [address] [place], [address] Urea nitrogen [Mass/Vol] 33 mg/dL High 7-18 [facility] Comment on above: Order Comment: 514.1 Performed By: #### L 101.9900, L100.0500, L500.2500, L501.8820 ####[facility] [address] [place], [address] CBC-Complete Blood Cnt No Di ffon 01-28-2024 Erythrocyte distribution width (RBC) [Ratio] 17.2 % High 11.6-14.6 [facility] Comment on above: Order Comment: 514.1 Performed By: #### L 101.9900, L100.0500, L500.2500, L501.8820 ####[facility] [address] [place], [address] Hematocrit (Bld) [Volume fraction] 27.9 % Low 37-47 [facility] Comment on above: Order Comment: 514.1 Performed By: #### L 101.9900, L100.0500, L500.2500, L501.8820 ####[facility] [address] [place], [address] Hemoglobin (Bld) [Mass/Vol] 8.4 g/dL Low 12.0-15.0 [facility] Comment on above: Order Comment: 514.1 Performed By: #### L 101.9900, L100.0500, L500.2500, L501.8820 ####[facility] [address] [place], [address] MCH (RBC) [Entitic mass] 25.5 pg Low 27.0-32.0 [facility] Comment on above: Order Comment: 514.1 Performed By: #### L 101.9900, L100.0500, L500.2500, L501.8820 ####[facility] [address] [place], [address] MCHC (RBC) [Mass/Vol] 30.1 g/dL Low 32-36 [facility] Comment on above: Order Comment: 514.1 Performed By: #### L 101.9900, L100.0500, L500.2500, L501.8820 ####[facility] [address] [place], [address] MCV (RBC) [Entitic vol] 84.8 fL Normal 81-99 [facility] Comment on above: Order Comment: 514.1 Performed By: #### L 101.9900, L100.0500, L500.2500, L501.8820 ####[facility] [address] [place], [address] Platelet mean volume (Bld) [Entitic vol] 9.2 fL Normal 6.2-12.0 [facility] Comment on above: Order Comment: 514.1 Performed By: #### L 101.9900, L100.0500, L500.2500, L501.8820 ####[facility] [address] [place], [address] Platelets (Bld) [#/Vol] 316 10*3/uL Normal 150-450 [facility] Comment on above: Order Comment: 514.1 Performed By: #### L 101.9900, L100.0500, L500.2500, L501.8820 ####[facility] [address] [place], [address] RBC (Bld) [#/Vol] 3.29 10*6/uL Low 4.2-5.4 [facility] Comment on above: Order Comment: 514.1 Performed By: #### L 101.9900, L100.0500, L500.2500, L501.8820 ####[facility] [address] [place], [address] RDW SD 53.3 fl High 35.1-43.9 [facility] Comment on above: Order Comment: 514.1 Performed By: #### L 101.9900, L100.0500, L500.2500, L501.8820 ####[facility] [address] [place], [address] WBC (Bld) [#/Vol] 9.4 10*3/uL Normal 4.4-11.0 [facility] Comment on above: Order Comment: 514.1 Performed By: #### L 101.9900, L100.0500, L500.2500, L501.8820 ####[facility] [address] [place], [address] Erythrocyte Sed Rateon - SED RATE 33 mm/hr High 0-30 [facility] Comment on above: Order Comment: 514.1 Performed By: #### L 101.9900, L100.0500, L500.2500, L501.8820 ####[facility] [address] [place], [address] Vancomycin, Trough Levelon 1 VANCO, TROUGH 4.1 ug/mL Low 5.0-15.0 [facility] Comment on above: Order Comment: 514.1 0500 Result Comment: VANC OMYCIN STANDARED DRUG THERAPY TROUGH LEVEL: 5.0 - 15.0 mg/LVANCOMYCIN HIGH INTENSITY THERAPY TROUGH LEVEL: 15.0 - 20.0 mg/LHigh Intensity therapy recommended for serious lifethreatening infections include:- Neggqismac-Viacqkbtclns-Mqkqdepru (Ventilator/Healtcare Associated)-SepsisPLEASE CONTACT PHARMACY SERVICES (#9962) FOR INTERPRETATIONOF RESULTS. Performed By: #### L 101.9900, L100.0500, L500.2500, L501.8820 ####[facility] [address] [place], [address] L5000.0010on 01-26-2024 BNP Normal [facility] Comment on above: Result Comment: TEST RESULTS LIMITSB-Type Natriuretic Peptide 443.4 High pg/mL 0.0-100.0 Siemens ADVIA Centaur XP methodology TESTING PERFORMED AT [facility]. ORIGINAL REPORT ON FILE IN LAB CONTAINS ADDITIONAL TEST SITE INFORMATION. Performed By: #### L 101.9900, L500.2500, L100.0500, L5000.0010 ####[facility] [address] [place], [address] Basic Metabolic Profile (BMP )on 01-21-2024 BUN/CRE 34.1 RATIO High 01-26 [facility] Comment on above: Order Comment: 514.1 Performed By: #### L 101.9900, L500.2500, L100.0500, L5000.0010 ####[facility] [address] [place], [address] CA,Total 8.0 mg/dL Low 8.5-10.1 [facility] Comment on above: Order Comment: 514.1 Performed By: #### L 101.9900, L500.2500, L100.0500, L5000.0010 ####[facility] [address] [place], [address] Chloride [Moles/Vol] 105 mmol/L Normal 98-107 [facility] Comment on above: Order Comment: 514.1 Performed By: #### L 101.9900, L500.2500, L100.0500, L5000.0010 ####[facility] [address] [place], [address] CO2 [Moles/Vol] 31.0 mmol/L Normal 21.0-32.0 [facility] Comment on above: Order Comment: 514.1 Performed By: #### L 101.9900, L500.2500, L100.0500, L5000.0010 ####[facility] [address] [place], [address] Creatinine [Mass/Vol] 1.00 mg/dL Normal 0.55-1.02 [facility] Comment on above: Order Comment: 514.1 Result Comment: The validity of the calculated GFR GFRAA in patients over70 years has not been determined. Clinical correlation isessential. Performed By: #### L 101.9900, L500.2500, L100.0500, L5000.0010 ####[facility] [address] [place], [address] EST GFR - AA 70 mL/min Normal >60 [facility] Comment on above: Order Comment: 514.1 Result Comment: Afri can [place] GFR Calc Performed By: #### L 101.9900, L500.2500, L100.0500, L5000.0010 ####[facility] [address] [place], [address] GAP 4 Low 5-15 [facility] Comment on above: Order Comment: 514.1 Performed By: #### L 101.9900, L500.2500, L100.0500, L5000.0010 ####[facility] [address] [place], [address] GFR/1.73 sq M.predicted among non-blacks MDRD (S/P/Bld) [Vol rate/Area] 58 mL/min/{1.73_m2} Low >60 [facility] Comment on above: Order Comment: 514.1 Result Comment: Non- GFR Calc Performed By: #### L 101.9900, L500.2500, L100.0500, L5000.0010 ####[facility] [address] [place], [address] Glucose [Mass/Vol] 98 mg/dL Normal 74-106 [facility] Comment on above: Order Comment: 514.1 Performed By: #### L 101.9900, L500.2500, L100.0500, L5000.0010 ####[facility] [address] [place], [address] Potassium [Moles/Vol] 4.4 mmol/L Normal 3.5-5.1 [facility] Comment on above: Order Comment: 514.1 Performed By: #### L 101.9900, L500.2500, L100.0500, L5000.0010 ####[facility] [address] [place], [address] Sodium [Moles/Vol] 140 mmol/L Normal 136-145 [facility] Comment on above: Order Comment: 514.1 Performed By: #### L 101.9900, L500.2500, L100.0500, L5000.0010 ####[facility] [address] [place], [address] Urea nitrogen [Mass/Vol] 34 mg/dL High 7-18 [facility] Comment on above: Order Comment: 514.1 Performed By: #### L 101.9900, L500.2500, L100.0500, L5000.0010 ####[facility] [address] [place], [address] CBC-Complete Blood Cnt No Di ffon 01-21-2024 Erythrocyte distribution width (RBC) [Ratio] 17.9 % High 11.6-14.6 [facility] Comment on above: Order Comment: 514.1 Performed By: #### L 101.9900, L500.2500, L100.0500, L5000.0010 ####[facility] [address] [place], [address] Hematocrit (Bld) [Volume fraction] 26.9 % Low 37-47 [facility] Comment on above: Order Comment: 514.1 Performed By: #### L 101.9900, L500.2500, L100.0500, L5000.0010 ####[facility] [address] [place], [address] Hemoglobin (Bld) [Mass/Vol] 8.1 g/dL Low 12.0-15.0 [facility] Comment on above: Order Comment: 514.1 Performed By: #### L 101.9900, L500.2500, L100.0500, L5000.0010 ####[facility] [address] [place], [address] MCH (RBC) [Entitic mass] 25.7 pg Low 27.0-32.0 [facility] Comment on above: Order Comment: 514.1 Performed By: #### L 101.9900, L500.2500, L100.0500, L5000.0010 ####[facility] [address] [place], [address] MCHC (RBC) [Mass/Vol] 30.1 g/dL Low 32-36 [facility] Comment on above: Order Comment: 514.1 Performed By: #### L 101.9900, L500.2500, L100.0500, L5000.0010 ####[facility] [address] [place], [address] MCV (RBC) [Entitic vol] 85.4 fL Normal 81-99 [facility] Comment on above: Order Comment: 514.1 Performed By: #### L 101.9900, L500.2500, L100.0500, L5000.0010 ####[facility] [address] [place], [address] Platelet mean volume (Bld) [Entitic vol] 9.9 fL Normal 6.2-12.0 [facility] Comment on above: Order Comment: 514.1 Performed By: #### L 101.9900, L500.2500, L100.0500, L5000.0010 ####[facility] [address] [place], [address] Platelets (Bld) [#/Vol] 180 10*3/uL Normal 150-450 [facility] Comment on above: Order Comment: 514.1 Performed By: #### L 101.9900, L500.2500, L100.0500, L5000.0010 ####[facility] [address] [place], [address] RBC (Bld) [#/Vol] 3.15 10*6/uL Low 4.2-5.4 [facility] Comment on above: Order Comment: 514.1 Performed By: #### L 101.9900, L500.2500, L100.0500, L5000.0010 ####[facility] [address] [place], [address] RDW SD 55.3 fl High 35.1-43.9 [facility] Comment on above: Order Comment: 514.1 Performed By: #### L 101.9900, L500.2500, L100.0500, L5000.0010 ####[facility] [address] [place], [address] WBC (Bld) [#/Vol] 9.5 10*3/uL Normal 4.4-11.0 [facility] Comment on above: Order Comment: 514.1 Performed By: #### L 101.9900, L500.2500, L100.0500, L5000.0010 ####[facility] [address] [place], [address] Erythrocyte Sed Rateon 01-20 SED RATE 21 mm/hr Normal 0-30 [facility] Comment on above: Order Comment: 514.1 Performed By: #### L 101.9900, L500.2500, L100.0500, L5000.0010 ####[facility] [address] [place], [address] CRPon 01-16-2024 C-REACTIVE PROT 91.00 mg/L High 0.0-3.0 [facility] Comment on above: Order Comment: 514-1 Result Comment: C-Re active Protein (CRP) provides useful information for thediagnosis, therapy and monitoring of inflammatory processesand associated diseases. For the evaluation of Relative Riskfor Cardiovascular Disease, a High Sensitivity CRP (HSCRP)should be ordered. Performed By: #### L 501.6710 ####[facility] [address] [place], [address] Basic Metabolic Profile (BMP )on 01-14-2024 BUN/CRE 29.6 RATIO High 10 [facility] Comment on above: Order Comment: 514-1 Performed By: #### L 101.9900, L500.2500, L501.8820, L100.0500 ####[facility] [address] [place], [address] CA,Total 7.4 mg/dL Low 8.5-10.1 [facility] Comment on above: Order Comment: 514-1 Performed By: #### L 101.9900, L500.2500, L501.8820, L100.0500 ####[facility] [address] [place], [address] Chloride [Moles/Vol] 105 mmol/L Normal 98-107 [facility] Comment on above: Order Comment: 514-1 Performed By: #### L 101.9900, L500.2500, L501.8820, L100.0500 ####[facility] [address] [place], [address] CO2 [Moles/Vol] 29.0 mmol/L Normal 21.0-32.0 [facility] Comment on above: Order Comment: 514-1 Performed By: #### L 101.9900, L500.2500, L501.8820, L100.0500 ####[facility] [address] [place], [address] Creatinine [Mass/Vol] 0.98 mg/dL Normal 0.55-1.02 [facility] Comment on above: Order Comment: 514- Result Comment: The validity of the calculated GFR GFRAA in patients over70 years has not been determined. Clinical correlation isessential. Performed By: #### L 101.9900, L500.2500, L501.8820, L100.0500 ####[facility] [address] [place], [address] EST GFR - AA 71 mL/min Normal >60 [facility] Comment on above: Order Comment: 514- Result Comment: Afri can [place] GFR Calc Performed By: #### L 101.9900, L500.2500, L501.8820, L100.0500 ####[facility] [address] [place], [address] GAP 9 Normal 5-15 [facility] Comment on above: Order Comment: 514-1 Performed By: #### L 101.9900, L500.2500, L501.8820, L100.0500 ####[facility] [address] [place], [address] GFR/1.73 sq M.predicted among non-blacks MDRD (S/P/Bld) [Vol rate/Area] 59 mL/min/{1.73_m2} Low >60 [facility] Comment on above: Order Comment: 514- Result Comment: Non- GFR Calc Performed By: #### L 101.9900, L500.2500, L501.8820, L100.0500 ####[facility] [address] [place], [address] Glucose [Mass/Vol] 74 mg/dL Normal 74-106 [facility] Comment on above: Order Comment: 514-1 Performed By: #### L 101.9900, L500.2500, L501.8820, L100.0500 ####[facility] [address] [place], [address] Potassium [Moles/Vol] 3.4 mmol/L Low 3.5-5.1 [facility] Comment on above: Order Comment: 514-1 Performed By: #### L 101.9900, L500.2500, L501.8820, L100.0500 ####[facility] [address] [place], [address] Sodium [Moles/Vol] 143 mmol/L Normal 136-145 [facility] Comment on above: Order Comment: 514-1 Performed By: #### L 101.9900, L500.2500, L501.8820, L100.0500 ####[facility] [address] [place], [address] Urea nitrogen [Mass/Vol] 29 mg/dL High 7-18 [facility] Comment on above: Order Comment: 514-1 Performed By: #### L 101.9900, L500.2500, L501.8820, L100.0500 ####[facility] [address] [place], [address] CBC-Complete Blood Cnt No Di ffon 01-14-2024 Erythrocyte distribution width (RBC) [Ratio] 17.5 % High 11.6-14.6 [facility] Comment on above: Order Comment: 514-1 Performed By: #### L 101.9900, L500.2500, L501.8820, L100.0500 ####[facility] [address] [place], [address] Hematocrit (Bld) [Volume fraction] 25.2 % Low 37-47 [facility] Comment on above: Order Comment: 514-1 Performed By: #### L 101.9900, L500.2500, L501.8820, L100.0500 ####[facility] [address] [place], [address] Hemoglobin (Bld) [Mass/Vol] 7.7 g/dL Low 12.0-15.0 [facility] Comment on above: Order Comment: 514-1 Performed By: #### L 101.9900, L500.2500, L501.8820, L100.0500 ####[facility] [address] [place], [address] MCH (RBC) [Entitic mass] 26.1 pg Low 27.0-32.0 [facility] Comment on above: Order Comment: 514-1 Performed By: #### L 101.9900, L500.2500, L501.8820, L100.0500 ####[facility] [address] [place], [address] MCHC (RBC) [Mass/Vol] 30.6 g/dL Low 32-36 [facility] Comment on above: Order Comment: 514-1 Performed By: #### L 101.9900, L500.2500, L501.8820, L100.0500 ####[facility] [address] [place], [address] MCV (RBC) [Entitic vol] 85.4 fL Normal 81-99 [facility] Comment on above: Order Comment: 514-1 Performed By: #### L 101.9900, L500.2500, L501.8820, L100.0500 ####[facility] [address] [place], [address] Platelet mean volume (Bld) [Entitic vol] 11.0 fL Normal 6.2-12.0 [facility] Comment on above: Order Comment: 514-1 Performed By: #### L 101.9900, L500.2500, L501.8820, L100.0500 ####[facility] [address] [place], [address] Platelets (Bld) [#/Vol] 162 10*3/uL Normal 150-450 [facility] Comment on above: Order Comment: 514-1 Performed By: #### L 101.9900, L500.2500, L501.8820, L100.0500 ####[facility] [address] [place], [address] RBC (Bld) [#/Vol] 2.95 10*6/uL Low 4.2-5.4 [facility] Comment on above: Order Comment: 514-1 Performed By: #### L 101.9900, L500.2500, L501.8820, L100.0500 ####[facility] [address] [place], [address] RDW SD 54.9 fl High 35.1-43.9 [facility] Comment on above: Order Comment: 514-1 Performed By: #### L 101.9900, L500.2500, L501.8820, L100.0500 ####[facility] [address] [place], [address] WBC (Bld) [#/Vol] 8.0 10*3/uL Normal 4.4-11.0 [facility] Comment on above: Order Comment: 514-1 Performed By: #### L 101.9900, L500.2500, L501.8820, L100.0500 ####[facility] [address] [place], [address] Erythrocyte Sed Rateon 01-13 SED RATE 12 mm/hr Normal 0-30 [facility] Comment on above: Order Comment: 514-1 Performed By: #### L 101.9900, L500.2500, L501.8820, L100.0500 ####[facility] [address] [place], [address] Vancomycin, Trough Levelon VANCO, TROUGH 30.8 ug/mL High 5.0-15.0 [facility] Comment on above: Order Comment: 0800 Result Comment: VANC OMYCIN STANDARED DRUG THERAPY TROUGH LEVEL: 5.0 - 15.0 mg/LVANCOMYCIN HIGH INTENSITY THERAPY TROUGH LEVEL: 15.0 - 20.0 mg/LHigh Intensity therapy recommended for serious lifethreatening infections include:- Goixltowwz-Kmebpcufqwes-Fsvlakdrm (Ventilator/Healtcare Associated)-SepsisPLEASE CONTACT PHARMACY SERVICES (#3340) FOR INTERPRETATIONOF RESULTS. Performed By: #### L 101.9900, L500.2500, L501.8820, L100.0500 ####[facility] [address] [place], [address] Basic Metabolic Profile (BMP )on 01-09-2024 BUN/CRE 29.8 RATIO High 10-20 [facility] Comment on above: Order Comment: 105.1 Performed By: #### L 100.0500, L500.2500 ####[facility] [address] [place], [address] CA,Total 8.3 mg/dL Low 8.5-10.1 [facility] Comment on above: Order Comment: 105.1 Performed By: #### L 100.0500, L500.2500 ####[facility] [address] [place], [address] Chloride [Moles/Vol] 100 mmol/L Normal 98-107 [facility] Comment on above: Order Comment: 105.1 Performed By: #### L 100.0500, L500.2500 ####[facility] [address] [place], [address] CO2 [Moles/Vol] 37.0 mmol/L High 21.0-32.0 [facility] Comment on above: Order Comment: 105.1 Performed By: #### L 100.0500, L500.2500 ####[facility] [address] [place], [address] Creatinine [Mass/Vol] 1.24 mg/dL High 0.55-1.02 [facility] Comment on above: Order Comment: 105.1 Result Comment: The validity of the calculated GFR GFRAA in patients over70 years has not been determined. Clinical correlation isessential. Performed By: #### L 100.0500, L500.2500 ####[facility] [address] [place], [address] EST GFR - AA 54 mL/min Low >60 [facility] Comment on above: Order Comment: 105.1 Result Comment: Afri can [place] GFR Calc Performed By: #### L 100.0500, L500.2500 ####[facility] [address] [place], [address] GAP 4 Low 5-15 [facility] Comment on above: Order Comment: 105.1 Performed By: #### L 100.0500, L500.2500 ####[facility] [address] [place], [address] GFR/1.73 sq M.predicted among non-blacks MDRD (S/P/Bld) [Vol rate/Area] 45 mL/min/{1.73_m2} Low >60 [facility] Comment on above: Order Comment: 105.1 Result Comment: Non- GFR Calc Performed By: #### L 100.0500, L500.2500 ####[facility] [address] [place], [address] Glucose [Mass/Vol] 193 mg/dL High 74-106 [facility] Comment on above: Order Comment: 105.1 Result Comment: Fast ing Glucose result greater than or equal to 126 mg/dLsuggests DIABETES MELLITUS per A.D.A. criteria. Performed By: #### L 100.0500, L500.2500 ####[facility] [address] [place], [address] Potassium [Moles/Vol] 3.4 mmol/L Low 3.5-5.1 [facility] Comment on above: Order Comment: 105.1 Result Comment: Slig ht Hemolysis, Result may be falsely increased. Performed By: #### L 100.0500, L500.2500 ####[facility] [address] [place], [address] Sodium [Moles/Vol] 141 mmol/L Normal 136-145 [facility] Comment on above: Order Comment: 105.1 Performed By: #### L 100.0500, L500.2500 ####[facility] [address] [place], [address] Urea nitrogen [Mass/Vol] 37 mg/dL High 7-18 [facility] Comment on above: Order Comment: 105.1 Performed By: #### L 100.0500, L500.2500 ####[facility] [address] [place], [address] BUN Normal 7-18 [facility] Comment on above: Result Comment: Canc elled via OM: Order cancelled - Patient discharged Performed By: #### L 500.2500 ####[facility] [address] [place], [address] BUN/CRE Normal 10-20 [facility] Comment on above: Result Comment: Canc elled via OM: Order cancelled - Patient discharged Performed By: #### L 500.2500 ####[facility] [address] [place], [address] CA,Total Normal 8.5-10.1 [facility] Comment on above: Result Comment: Canc elled via OM: Order cancelled - Patient discharged Performed By: #### L 500.2500 ####[facility] [address] [place], [address] CL Normal 98-107 [facility] Comment on above: Result Comment: Canc elled via OM: Order cancelled - Patient discharged Performed By: #### L 500.2500 ####[facility] [address] [place], [address] CO2 Normal 21.0-32.0 [facility] Comment on above: Result Comment: Canc elled via OM: Order cancelled - Patient discharged Performed By: #### L 500.2500 ####[facility] [address] [place], [address] CREAT,SERUM Normal 0.55-1.02 [facility] Comment on above: Result Comment: Canc elled via OM: Order cancelled - Patient discharged Performed By: #### L 500.2500 ####[facility] [address] [place], [address] EST GFR Normal >60 [facility] Comment on above: Result Comment: Canc elled via OM: Order cancelled - Patient discharged Performed By: #### L 500.2500 ####[facility] [address] [place], [address] EST GFR - AA Normal >60 [facility] Comment on above: Result Comment: Canc elled via OM: Order cancelled - Patient discharged Performed By: #### L 500.2500 ####[facility] [address] [place], [address] GAP Normal 5-15 [facility] Comment on above: Result Comment: Canc elled via OM: Order cancelled - Patient discharged Performed By: #### L 500.2500 ####[facility] [address] [place], [address] GLU Normal 74-106 [facility] Comment on above: Result Comment: Canc elled via OM: Order cancelled - Patient discharged Performed By: #### L 500.2500 ####[facility] [address] [place], [address] Potassium Normal 3.5-5.1 [facility] Comment on above: Result Comment: Canc elled via OM: Order cancelled - Patient discharged Performed By: #### L 500.2500 ####[facility] [address] [place], [address] Basic Metabolic Profile (BMP) Normal 136-145 [facility] Comment on above: Result Comment: Canc elled via OM: Order cancelled - Patient discharged Performed By: #### L 500.2500 ####[facility] [address] [place], [address] CBC-Complete Blood Cnt No Di ffon 01-09-2024 Erythrocyte distribution width (RBC) [Ratio] 17.6 % High 11.6-14.6 [facility] Comment on above: Order Comment: 105.1 Performed By: #### L 100.0500, L500.2500 ####[facility] [address] [place], [address] Hematocrit (Bld) [Volume fraction] 32.6 % Low 37-47 [facility] Comment on above: Order Comment: 105.1 Performed By: #### L 100.0500, L500.2500 ####[facility] [address] [place], [address] Hemoglobin (Bld) [Mass/Vol] 9.7 g/dL Low 12.0-15.0 [facility] Comment on above: Order Comment: 105.1 Performed By: #### L 100.0500, L500.2500 ####[facility] [address] [place], [address] MCH (RBC) [Entitic mass] 25.7 pg Low 27.0-32.0 [facility] Comment on above: Order Comment: 105.1 Performed By: #### L 100.0500, L500.2500 ####[facility] [address] [place], [address] MCHC (RBC) [Mass/Vol] 29.8 g/dL Low 32-36 [facility] Comment on above: Order Comment: 105.1 Performed By: #### L 100.0500, L500.2500 ####[facility] [address] [place], [address] MCV (RBC) [Entitic vol] 86.2 fL Normal 81-99 [facility] Comment on above: Order Comment: 105.1 Performed By: #### L 100.0500, L500.2500 ####[facility] [address] [place], [address] Platelet mean volume (Bld) [Entitic vol] 10.5 fL Normal 6.2-12.0 [facility] Comment on above: Order Comment: 105.1 Performed By: #### L 100.0500, L500.2500 ####[facility] [address] [place], [address] Platelets (Bld) [#/Vol] 243 10*3/uL Normal 150-450 [facility] Comment on above: Order Comment: 105.1 Performed By: #### L 100.0500, L500.2500 ####[facility] [address] [place], [address] RBC (Bld) [#/Vol] 3.78 10*6/uL Low 4.2-5.4 [facility] Comment on above: Order Comment: 105.1 Performed By: #### L 100.0500, L500.2500 ####[facility] [address] [place], [address] RDW SD 54.8 fl High 35.1-43.9 [facility] Comment on above: Order Comment: 105.1 Performed By: #### L 100.0500, L500.2500 ####[facility] [address] [place], [address] WBC (Bld) [#/Vol] 15.9 10*3/uL High 4.4-11.0 [facility] Comment on above: Order Comment: 105.1 Performed By: #### L 100.0500, L500.2500 ####[facility] [address] [place], [address] Basic Metabolic Profile (BMP )on 01-08-2024 BUN/CRE 28.4 RATIO High 10-20 [facility] Comment on above: Performed By: #### L 500.2500 ####[facility] [address] [place], [address] CA,Total 8.2 mg/dL Low 8.5-10.1 [facility] Comment on above: Performed By: #### L 500.2500 ####[facility] [address] [place], [address] Chloride [Moles/Vol] 100 mmol/L Normal 98-107 [facility] Comment on above: Performed By: #### L 500.2500 ####[facility] [address] [place], [address] CO2 [Moles/Vol] 36.0 mmol/L High 21.0-32.0 [facility] Comment on above: Performed By: #### L 500.2500 ####[facility] [address] [place], [address] Creatinine [Mass/Vol] 1.34 mg/dL High 0.55-1.02 [facility] Comment on above: Result Comment: The validity of the calculated GFR GFRAA in patients over70 years has not been determined. Clinical correlation isessential. Performed By: #### L 500.2500 ####[facility] [address] [place], [address] ECRCL 49.74 ml/min Normal [facility] Comment on above: Performed By: #### L 500.2500 ####[facility] [address] [place], [place], [address] EST GFR - AA 50 mL/min Low >60 [facility] Comment on above: Result Comment: Afri can [place] GFR Calc Performed By: #### L 500.2500 ####[facility] [address] [place], [address] GAP 5 Normal 5-15 [facility] Comment on above: Performed By: #### L 500.2500 ####[facility] [address] [place], [address] GFR/1.73 sq M.predicted among non-blacks MDRD (S/P/Bld) [Vol rate/Area] 41 mL/min/{1.73_m2} Low >60 [facility] Comment on above: Result Comment: Non- GFR Calc Performed By: #### L 500.2500 ####[facility] [address] [place], [address] Glucose [Mass/Vol] 210 mg/dL High 74-106 [facility] Comment on above: Result Comment: Gluc ose result greater than or equal to 200 mg/dLsuggests DIABETES MELLITUS per A.D.A. criteria. Performed By: #### L 500.2500 ####[facility] [address] [place], [address] Potassium [Moles/Vol] 3.9 mmol/L Normal 3.5-5.1 [facility] Comment on above: Performed By: #### L 500.2500 ####[facility] [address] [place], [address] Sodium [Moles/Vol] 141 mmol/L Normal 136-145 [facility] Comment on above: Performed By: #### L 500.2500 ####[facility] [address] [place], [address] Urea nitrogen [Mass/Vol] 38 mg/dL High 7-18 [facility] Comment on above: Performed By: #### L 500.2500 ####[facility] [address] [place], [address] CXR for Line Placementon CXR for Line Placement Normal [facility] Chest 1 View (Portable)on Chest 1 View (Portable) Normal [facility] Basic Metabolic Profile (BMP )on 01-07-2024 BUN/CRE 27.8 RATIO High 10-20 [facility] Comment on above: Performed By: #### L 500.2500 ####[facility] [address] [place], [address] CA,Total 8.1 mg/dL Low 8.5-10.1 [facility] Comment on above: Performed By: #### L 500.2500 ####[facility] [address] [place], [address] Chloride [Moles/Vol] 101 mmol/L Normal 98-107 [facility] Comment on above: Performed By: #### L 500.2500 ####[facility] [address] [place], [address] CO2 [Moles/Vol] 34.0 mmol/L High 21.0-32.0 [facility] Comment on above: Performed By: #### L 500.2500 ####[facility] [address] [place], [address] Creatinine [Mass/Vol] 1.26 mg/dL High 0.55-1.02 [facility] Comment on above: Result Comment: The validity of the calculated GFR GFRAA in patients over70 years has not been determined. Clinical correlation isessential. Performed By: #### L 500.2500 ####[facility] [address] [place], [address] ECRCL 52.57 ml/min Normal [facility] Comment on above: Performed By: #### L 500.2500 ####[facility] [address] [place], [place], [address] EST GFR - AA 53 mL/min Low >60 [facility] Comment on above: Result Comment: Afri can [place] GFR Calc Performed By: #### L 500.2500 ####[facility] [address] [place], [address] GAP 7 Normal 5-15 [facility] Comment on above: Performed By: #### L 500.2500 ####[facility] [address] [place], [address] GFR/1.73 sq M.predicted among non-blacks MDRD (S/P/Bld) [Vol rate/Area] 44 mL/min/{1.73_m2} Low >60 [facility] Comment on above: Result Comment: Non- GFR Calc Performed By: #### L 500.2500 ####[facility] [address] [place], [address] Glucose [Mass/Vol] 211 mg/dL High 74-106 [facility] Comment on above: Result Comment: Gluc ose result greater than or equal to 200 mg/dLsuggests DIABETES MELLITUS per A.D.A. criteria. Performed By: #### L 500.2500 ####[facility] [address] [place], [address] Potassium [Moles/Vol] 3.5 mmol/L Normal 3.5-5.1 [facility] Comment on above: Performed By: #### L 500.2500 ####[facility] [address] [place], [address] Sodium [Moles/Vol] 141 mmol/L Normal 136-145 [facility] Comment on above: Performed By: #### L 500.2500 ####[facility] [address] [place], [address] Urea nitrogen [Mass/Vol] 35 mg/dL High 7-18 [facility] Comment on above: Performed By: #### L 500.2500 ####[facility] [address] [place], [address] CDIFF (PCR)on 01-07-2024 CDIFF Normal [facility] Comment on above: Performed By: #### M 100.6796, M100.6795 ####[facility] [address] [place], [address] Clostridium Diff Toxin/Agon 01-07-2024 CDIFF (EIA) Normal [facility] Comment on above: Performed By: #### M 100.6796, M100.6795 ####[facility] [address] [place], [address] Culture, Blood (WB)on 2023 CUB No growth in 5 days. Normal [facility] Comment on above: Performed By: #### M 200.1000 ####[facility] [address] [place], [address] Vancomycin, Random Levelon 0 01-07-2024 VANCO, RANDOM 21.4 ug/mL High 0.0-15.0 [facility] Comment on above: Order Comment: Comme nts: Please draw with AM labs Result Comment: VANC OMYCIN STANDARD DRUG THERAPY: CRITICAL VALUE IS > 15.0 mg/LVANCOMYCIN HIGH INTENSITY THERAPY: CRITICAL VALUE IS > 20.0 mg/LPLEASE CONTACT PHARMACY SERVICES (#7248) FOR INTERPRETATIONOF RESULTS. THIS RESULT DOES NOT REPRESENT A PEAK OR TROUGHLEVEL FOR THIS DRUG. Performed By: #### L 501.8850 ####[facility] [address] [place], [address] Basic Metabolic Profile (BMP )on 01-06-2024 BUN/CRE 23.4 RATIO High 10-20 [facility] Comment on above: Performed By: #### L 500.2500 ####[facility] [address] [place], [address] CA,Total 8.2 mg/dL Low 8.5-10.1 [facility] Comment on above: Performed By: #### L 500.2500 ####[facility] [address] [place], [address] Chloride [Moles/Vol] 102 mmol/L Normal 98-107 [facility] Comment on above: Performed By: #### L 500.2500 ####[facility] [address] [place], [address] CO2 [Moles/Vol] 31.0 mmol/L Normal 21.0-32.0 [facility] Comment on above: Performed By: #### L 500.2500 ####[facility] [address] [place], [address] Creatinine [Mass/Vol] 1.24 mg/dL High 0.55-1.02 [facility] Comment on above: Result Comment: The validity of the calculated GFR GFRAA in patients over70 years has not been determined. Clinical correlation isessential. Performed By: #### L 500.2500 ####[facility] [address] [place], [address] ECRCL 53.36 ml/min Normal [facility] Comment on above: Performed By: #### L 500.2500 ####[facility] [address] [place], [address] EST GFR - AA 54 mL/min Low >60 [facility] Comment on above: Result Comment: Afri can [place] GFR Calc Performed By: #### L 500.2500 ####[facility] [address] [place], [address] GAP 7 Normal 5-15 [facility] Comment on above: Performed By: #### L 500.2500 ####[facility] [address] [place], [address] GFR/1.73 sq M.predicted among non-blacks MDRD (S/P/Bld) [Vol rate/Area] 45 mL/min/{1.73_m2} Low >60 [facility] Comment on above: Result Comment: Non- GFR Calc Performed By: #### L 500.2500 ####[facility] [address] [place], [address] Glucose [Mass/Vol] 282 mg/dL High 74-106 [facility] Comment on above: Result Comment: Gluc ose result greater than or equal to 200 mg/dLsuggests DIABETES MELLITUS per A.D.A. criteria. Performed By: #### L 500.2500 ####[facility] [address] [place], [address] Potassium [Moles/Vol] 3.1 mmol/L Low 3.5-5.1 [facility] Comment on above: Performed By: #### L 500.2500 ####[facility] [address] [place], [address] Sodium [Moles/Vol] 140 mmol/L Normal 136-145 [facility] Comment on above: Performed By: #### L 500.2500 ####[facility] [address] [place], [address] Urea nitrogen [Mass/Vol] 29 mg/dL High 7-18 [facility] Comment on above: Performed By: #### L 500.2500 ####[facility] [address] [place], [address] CBC-Complete Blood Cnt No Di ffon 01-05-2024 Erythrocyte distribution width (RBC) [Ratio] 17.7 % High 11.6-14.6 [facility] Comment on above: Result Comment: OVER LAPPING- CBCD ORDERED Performed By: #### L 500.4050, L100.0500 ####[facility] [address] [place], [address] Hematocrit (Bld) [Volume fraction] 30.5 % Low 37-47 [facility] Comment on above: Result Comment: OVER LAPPING- CBCD ORDERED Performed By: #### L 500.4050, L100.0500 ####[facility] [address] [place], [address] Hemoglobin (Bld) [Mass/Vol] 9.1 g/dL Low 12.0-15.0 [facility] Comment on above: Result Comment: OVER LAPPING- CBCD ORDERED Performed By: #### L 500.4050, L100.0500 ####[facility] [address] [place], [address] MCH (RBC) [Entitic mass] 25.3 pg Low 27.0-32.0 [facility] Comment on above: Result Comment: OVER LAPPING- CBCD ORDERED Performed By: #### L 500.4050, L100.0500 ####[facility] [address] [place], [address] MCHC (RBC) [Mass/Vol] 29.8 g/dL Low 32-36 [facility] Comment on above: Result Comment: OVER LAPPING- CBCD ORDERED Performed By: #### L 500.4050, L100.0500 ####[facility] [address] [place], [address] MCV (RBC) [Entitic vol] 85.0 fL Normal 81-99 [facility] Comment on above: Result Comment: OVER LAPPING- CBCD ORDERED Performed By: #### L 500.4050, L100.0500 ####[facility] [address] [place], [address] Platelet mean volume (Bld) [Entitic vol] 9.1 fL Normal 6.2-12.0 [facility] Comment on above: Performed By: #### L 500.4050, L100.0500 ####[facility] [address] [place], [address] Platelets (Bld) [#/Vol] 209 10*3/uL Normal 150-450 [facility] Comment on above: Result Comment: OVER LAPPING- CBCD ORDERED Performed By: #### L 500.4050, L100.0500 ####[facility] [address] [place], [address] RBC (Bld) [#/Vol] 3.59 10*6/uL Low 4.2-5.4 [facility] Comment on above: Result Comment: OVER LAPPING- CBCD ORDERED Performed By: #### L 500.4050, L100.0500 ####[facility] [address] [place], [address] RDW SD 55.3 fl High 35.1-43.9 [facility] Comment on above: Result Comment: OVER LAPPING- CBCD ORDERED Performed By: #### L 500.4050, L100.0500 ####[facility] [address] [place], [address] WBC (Bld) [#/Vol] 6.0 10*3/uL Normal 4.4-11.0 [facility] Comment on above: Result Comment: OVER LAPPING- CBCD ORDERED Performed By: #### L 500.4050, L100.0500 ####[facility] [address] [place], [address] Comprehensive Metabolic Prof [facility] 01-05-2024 Albumin [Mass/Vol] 1.8 g/dL Low 3.2-5.0 [facility] Comment on above: Performed By: #### L 500.4050, L100.0500 ####[facility] [address] [place], [address] Albumin/Globulin [Mass ratio] 0.7 {ratio} Low 0.9-2.4 [facility] Comment on above: Performed By: #### L 500.4050, L100.0500 ####[facility] [address] [place], [address] ALK P 139 U/L High 45-117 [facility] Comment on above: Performed By: #### L 500.4050, L100.0500 ####[facility] [address] [place], [address] ALT [Catalytic activity/Vol] 19 U/L Normal 13-56 [facility] Comment on above: Performed By: #### L 500.4050, L100.0500 ####[facility] [address] [place], [address] AST [Catalytic activity/Vol] 20 U/L Normal 15-37 [facility] Comment on above: Performed By: #### L 500.4050, L100.0500 ####[facility] [address] [place], [address] Bilirubin [Mass/Vol] 0.20 mg/dL Normal 0.20-1.00 [facility] Comment on above: Result Comment: For patients on eltrombopag therapy, use of Dimension [place] TBIL is not recommended. Performed By: #### L 500.4050, L100.0500 ####[facility] [address] [place], [address] BUN/CRE 22.7 RATIO High 10-20 [facility] Comment on above: Performed By: #### L 500.4050, L100.0500 ####[facility] [address] [place], [address] CA,Total 8.0 mg/dL Low 8.5-10.1 [facility] Comment on above: Performed By: #### L 500.4050, L100.0500 ####[facility] [address] [place], [address] Chloride [Moles/Vol] 106 mmol/L Normal 98-107 [facility] Comment on above: Performed By: #### L 500.4050, L100.0500 ####[facility] [address] [place], [address] CO2 [Moles/Vol] 28.0 mmol/L Normal 21.0-32.0 [facility] Comment on above: Performed By: #### L 500.4050, L100.0500 ####[facility] [address] [place], [address] Creatinine [Mass/Vol] 1.19 mg/dL High 0.55-1.02 [facility] Comment on above: Result Comment: The validity of the calculated GFR GFRAA in patients over70 years has not been determined. Clinical correlation isessential. Performed By: #### L 500.4050, L100.0500 ####[facility] [address] [place], [address] ECRCL 55.58 ml/min Normal [facility] Comment on above: Performed By: #### L 500.4050, L100.0500 ####[facility] [address] [place], [address] EST GFR - AA 57 mL/min Low >60 [facility] Comment on above: Result Comment: Afri can [place] GFR Calc Performed By: #### L 500.4050, L100.0500 ####[facility] [address] [place], [address] GAP 8 Normal 5-15 [facility] Comment on above: Performed By: #### L 500.4050, L100.0500 ####[facility] [address] [place], [address] GFR/1.73 sq M.predicted among non-blacks MDRD (S/P/Bld) [Vol rate/Area] 47 mL/min/{1.73_m2} Low >60 [facility] Comment on above: Result Comment: Non- GFR Calc Performed By: #### L 500.4050, L100.0500 ####[facility] [address] [place], [address] Globulin (S) [Mass/Vol] 2.7 g/dL Normal 2.2-4.2 [facility] Comment on above: Performed By: #### L 500.4050, L100.0500 ####[facility] [address] [place], [address] Glucose [Mass/Vol] 253 mg/dL High 74-106 [facility] Comment on above: Result Comment: Gluc ose result greater than or equal to 200 mg/dLsuggests DIABETES MELLITUS per A.D.A. criteria. Performed By: #### L 500.4050, L100.0500 ####[facility] [address] [place], [address] Potassium [Moles/Vol] 3.4 mmol/L Low 3.5-5.1 [facility] Comment on above: Performed By: #### L 500.4050, L100.0500 ####[facility] [address] [place], [address] Sodium [Moles/Vol] 142 mmol/L Normal 136-145 [facility] Comment on above: Performed By: #### L 500.4050, L100.0500 ####[facility] [address] [place], [address] T PROT 4.5 g/dL Low 6.4-8.2 [facility] Comment on above: Performed By: #### L 500.4050, L100.0500 ####[facility] [address] [place], [address] Urea nitrogen [Mass/Vol] 27 mg/dL High 7-18 [facility] Comment on above: Performed By: #### L 500.4050, L100.0500 ####[facility] [address] [place], [address] Vancomycin, Random Levelon 0 01-05-2024 VANCO, RANDOM 24.4 ug/mL High 0.0-15.0 [facility] Comment on above: Result Comment: VANC OMYCIN STANDARD DRUG THERAPY: CRITICAL VALUE IS > 15.0 mg/LVANCOMYCIN HIGH INTENSITY THERAPY: CRITICAL VALUE IS > 20.0 mg/LPLEASE CONTACT PHARMACY SERVICES (#6103) FOR INTERPRETATIONOF RESULTS. THIS RESULT DOES NOT REPRESENT A PEAK OR TROUGHLEVEL FOR THIS DRUG. Performed By: #### L 501.8850 ####[facility] [address] [place], [address] CBC W/Diff, Automatedon 09-2 Absolute Lymph 0.74 X10 3/uL Low 0.83-4.51 [facility] Comment on above: Performed By: #### L 100.0100 ####[facility] [address] [place], [address] Absolute Neut 4.8 X10 3/uL Normal 2.0-7.7 [facility] Comment on above: Performed By: #### L 100.0100 ####[facility] [address] [place], [address] Basophils/100 WBC (Bld) 0.2 % Normal 0-1 [facility] Comment on above: Performed By: #### L 100.0100 ####[facility] [address] [place], [address] Eosinophils/100 WBC (Bld) 0.0 % Normal 0-5 [facility] Comment on above: Performed By: #### L 100.0100 ####[facility] [address] [place], [address] Erythrocyte distribution width (RBC) [Ratio] 17.7 % High 11.6-14.6 [facility] Comment on above: Performed By: #### L 100.0100 ####[facility] [address] [place], [address] Hematocrit (Bld) [Volume fraction] 30.0 % Low 37-47 [facility] Comment on above: Performed By: #### L 100.0100 ####[facility] [address] [place], [address] Hemoglobin (Bld) [Mass/Vol] 9.0 g/dL Low 12.0-15.0 [facility] Comment on above: Performed By: #### L 100.0100 ####[facility] [address] [place], [address] IG% 1.000 High 0.0-0.9 [facility] Comment on above: Result Comment: IG% - Immature Granulocytes (promyelocytes, myelocytes andmetamyelocytes) > 1% indicates that a LEFT SHIFT is Present. Performed By: #### L 100.0100 ####[facility] [address] [place], [address] Lymphocytes/100 WBC (Bld) 12.9 % Low 19-41 [facility] Comment on above: Performed By: #### L 100.0100 ####[facility] [address] [place], [address] MCH (RBC) [Entitic mass] 25.3 pg Low 27.0-32.0 [facility] Comment on above: Performed By: #### L 100.0100 ####[facility] [address] [place], [address] MCHC (RBC) [Mass/Vol] 30.0 g/dL Low 32-36 [facility] Comment on above: Performed By: #### L 100.0100 ####[facility] [address] [place], [address] MCV (RBC) [Entitic vol] 84.3 fL Normal 81-99 [facility] Comment on above: Performed By: #### L 100.0100 ####[facility] [address] [place], [address] Monocytes/100 WBC (Bld) 2.4 % Normal 0-10 [facility] Comment on above: Performed By: #### L 100.0100 ####[facility] [address] [place], [address] Neutrophils/100 WBC (Bld) 83.5 % High 47-70 [facility] Comment on above: Performed By: #### L 100.0100 ####[facility] [address] [place], [address] Nucleated RBC (Bld) [#/Vol] 0 10*3/uL Normal 0-5 [facility] Comment on above: Performed By: #### L 100.0100 ####[facility] [address] [place], [address] Platelet mean volume (Bld) [Entitic vol] 9.4 fL Normal 6.2-12.0 [facility] Comment on above: Performed By: #### L 100.0100 ####[facility] [address] [place], [address] Platelets (Bld) [#/Vol] 219 10*3/uL Normal 150-450 [facility] Comment on above: Performed By: #### L 100.0100 ####[facility] [address] [place], [address] RBC (Bld) [#/Vol] 3.56 10*6/uL Low 4.2-5.4 [facility] Comment on above: Performed By: #### L 100.0100 ####[facility] [address] [place], [address] RDW SD 54.4 fl High 35.1-43.9 [facility] Comment on above: Performed By: #### L 100.0100 ####[facility] [address] [place], [address] WBC (Bld) [#/Vol] 5.8 10*3/uL Normal 4.4-11.0 [facility] Comment on above: Performed By: #### L 100.0100 ####[facility] [address] [place], [address] Comprehensive Metabolic Prof ilon 01-04-2024 Albumin [Mass/Vol] 1.7 g/dL Low 3.2-5.0 [facility] Comment on above: Performed By: #### L 500.4050 ####[facility] [address] [place], [address] Albumin/Globulin [Mass ratio] 0.6 {ratio} Low 0.9-2.4 [facility] Comment on above: Performed By: #### L 500.4050 ####[facility] [address] [place], [address] ALK P 130 U/L High 45-117 [facility] Comment on above: Performed By: #### L 500.4050 ####[facility] [address] [place], [address] ALT [Catalytic activity/Vol] 17 U/L Normal 13-56 [facility] Comment on above: Performed By: #### L 500.4050 ####[facility] [address] [place], [address] AST [Catalytic activity/Vol] 21 U/L Normal 15-37 [facility] Comment on above: Performed By: #### L 500.4050 ####[facility] [address] [place], [address] Bilirubin [Mass/Vol] 0.30 mg/dL Normal 0.20-1.00 [facility] Comment on above: Result Comment: For patients on eltrombopag therapy, use of Dimension [place] TBIL is not recommended. Performed By: #### L 500.4050 ####[facility] [address] [place], [address] BUN/CRE 24.8 RATIO High 10-20 [facility] Comment on above: Performed By: #### L 500.4050 ####[facility] [address] [place], [address] CA,Total 7.9 mg/dL Low 8.5-10.1 [facility] Comment on above: Performed By: #### L 500.4050 ####[facility] [address] [place], [address] Chloride [Moles/Vol] 105 mmol/L Normal 98-107 [facility] Comment on above: Performed By: #### L 500.4050 ####[facility] [address] [place], [address] CO2 [Moles/Vol] 29.0 mmol/L Normal 21.0-32.0 [facility] Comment on above: Performed By: #### L 500.4050 ####[facility] [address] [place], [address] Creatinine [Mass/Vol] 1.09 mg/dL High 0.55-1.02 [facility] Comment on above: Result Comment: The validity of the calculated GFR GFRAA in patients over70 years has not been determined. Clinical correlation isessential. Performed By: #### L 500.4050 ####[facility] [address] [place], [address] ECRCL 63.06 ml/min Normal [facility] Comment on above: Performed By: #### L 500.4050 ####[facility] [address] [place], [address] EST GFR - AA 63 mL/min Normal >60 [facility] Comment on above: Result Comment: Afri can [place] GFR Calc Performed By: #### L 500.4050 ####[facility] [address] [place], [address] GAP 6 Normal 5-15 [facility] Comment on above: Performed By: #### L 500.4050 ####[facility] [address] [place], [address] GFR/1.73 sq M.predicted among non-blacks MDRD (S/P/Bld) [Vol rate/Area] 52 mL/min/{1.73_m2} Low >60 [facility] Comment on above: Result Comment: Non- GFR Calc Performed By: #### L 500.4050 ####[facility] [address] [place], [address] Globulin (S) [Mass/Vol] 2.9 g/dL Normal 2.2-4.2 [facility] Comment on above: Performed By: #### L 500.4050 ####[facility] [address] [place], [address] Glucose [Mass/Vol] 233 mg/dL High 74-106 [facility] Comment on above: Result Comment: Gluc ose result greater than or equal to 200 mg/dLsuggests DIABETES MELLITUS per A.D.A. criteria. Performed By: #### L 500.4050 ####[facility] [address] [place], [address] Potassium [Moles/Vol] 3.3 mmol/L Low 3.5-5.1 [facility] Comment on above: Performed By: #### L 500.4050 ####[facility] [address] [place], [address] Sodium [Moles/Vol] 140 mmol/L Normal 136-145 [facility] Comment on above: Performed By: #### L 500.4050 ####[facility] [address] [place], [address] T PROT 4.6 g/dL Low 6.4-8.2 [facility] Comment on above: Performed By: #### L 500.4050 ####[facility] [address] [place], [address] Urea nitrogen [Mass/Vol] 27 mg/dL High 7-18 [facility] Comment on above: Performed By: #### L 500.4050 ####[facility] [address] [place], [address] Urine Cultureon 01-04-2024 URC Normal [facility] Comment on above: Performed By: #### L 400.0001, M100.2200, M100.678 ####[facility] [address] [place], [address] Vancomycin, Random Levelon 0 - VANCO, RANDOM 29.0 ug/mL High 0.0-15.0 [facility] Comment on above: Result Comment: VANC OMYCIN STANDARD DRUG THERAPY: CRITICAL VALUE IS > 15.0 mg/LVANCOMYCIN HIGH INTENSITY THERAPY: CRITICAL VALUE IS > 20.0 mg/LPLEASE CONTACT PHARMACY SERVICES (#2216) FOR INTERPRETATIONOF RESULTS. THIS RESULT DOES NOT REPRESENT A PEAK OR TROUGHLEVEL FOR THIS DRUG. Performed By: #### L 501.8850 ####[facility] [address] [place], [address] CBC W/Diff, Automatedon 12-09 Absolute Lymph 1.06 X10 3/uL Normal 0.83-4.51 [facility] Comment on above: Performed By: #### L 100.0100 ####[facility] [address] [place], [address] Absolute Neut 11.3 X10 3/uL High 2.0-7.7 [facility] Comment on above: Performed By: #### L 100.0100 ####[facility] [address] [place], [address] Basophils/100 WBC (Bld) 0.2 % Normal 0-1 [facility] Comment on above: Performed By: #### L 100.0100 ####[facility] [address] [place], [address] Eosinophils/100 WBC (Bld) 0.0 % Normal 0-5 [facility] Comment on above: Performed By: #### L 100.0100 ####[facility] [address] [place], [address] Erythrocyte distribution width (RBC) [Ratio] 18.1 % High 11.6-14.6 [facility] Comment on above: Performed By: #### L 100.0100 ####[facility] [address] [place], [address] Hematocrit (Bld) [Volume fraction] 33.7 % Low 37-47 [facility] Comment on above: Performed By: #### L 100.0100 ####[facility] [address] [place], [address] Hemoglobin (Bld) [Mass/Vol] 10.0 g/dL Low 12.0-15.0 [facility] Comment on above: Performed By: #### L 100.0100 ####[facility] [address] [place], [address] IG% 0.600 Normal 0.0-0.9 [facility] Comment on above: Result Comment: IG% - Immature Granulocytes (promyelocytes, myelocytes andmetamyelocytes) > 1% indicates that a LEFT SHIFT is Present. Performed By: #### L 100.0100 ####[facility] [address] [place], [address] Lymphocytes/100 WBC (Bld) 8.2 % Low 19-41 [facility] Comment on above: Performed By: #### L 100.0100 ####[facility] [address] [place], [address] MCH (RBC) [Entitic mass] 25.7 pg Low 27.0-32.0 [facility] Comment on above: Performed By: #### L 100.0100 ####[facility] [facility] [address] [place], [address] MCHC (RBC) [Mass/Vol] 29.7 g/dL Low 32-36 [facility] Comment on above: Performed By: #### L 100.0100 ####[facility] [address] [place], [address] MCV (RBC) [Entitic vol] 86.6 fL Normal 81-99 [facility] Comment on above: Performed By: #### L 100.0100 ####[facility] [address] [place], [address] Monocytes/100 WBC (Bld) 3.5 % Normal 0-10 [facility] Comment on above: Performed By: #### L 100.0100 ####[facility] [address] [place], [address] Neutrophils/100 WBC (Bld) 87.5 % High 47-70 [facility] Comment on above: Performed By: #### L 100.0100 ####[facility] [address] [place], [address] Nucleated RBC (Bld) [#/Vol] 0 10*3/uL Normal 0-5 [facility] Comment on above: Performed By: #### L 100.0100 ####[facility] [address] [place], [address] Platelet mean volume (Bld) [Entitic vol] 9.4 fL Normal 6.2-12.0 [facility] Comment on above: Performed By: #### L 100.0100 ####[facility] [address] [place], [address] Platelets (Bld) [#/Vol] 287 10*3/uL Normal 150-450 [facility] Comment on above: Performed By: #### L 100.0100 ####[facility] [address] [place], [address] RBC (Bld) [#/Vol] 3.89 10*6/uL Low 4.2-5.4 [facility] Comment on above: Performed By: #### L 100.0100 ####[facility] [address] [place], [address] RDW SD 57.3 fl High 35.1-43.9 [facility] Comment on above: Performed By: #### L 100.0100 ####[facility] [address] [place], [address] WBC (Bld) [#/Vol] 12.9 10*3/uL High 4.4-11.0 [facility] Comment on above: Performed By: #### L 100.0100 ####[facility] [address] [place], [address] Comprehensive Metabolic Prof ilon 01-03-2024 Albumin [Mass/Vol] 1.8 g/dL Low 3.2-5.0 [facility] Comment on above: Performed By: #### L 500.4050 ####[facility] [address] [place], [address] Albumin/Globulin [Mass ratio] 0.6 {ratio} Low 0.9-2.4 [facility] Comment on above: Performed By: #### L 500.4050 ####[facility] [address] [place], [address] ALK P 141 U/L High 45-117 [facility] Comment on above: Performed By: #### L 500.4050 ####[facility] [address] [place], [address] ALT [Catalytic activity/Vol] 18 U/L Normal 13-56 [facility] Comment on above: Performed By: #### L 500.4050 ####[facility] [address] [place], [address] AST [Catalytic activity/Vol] 27 U/L Normal 15-37 [facility] Comment on above: Performed By: #### L 500.4050 ####[facility] [address] [place], [address] Bilirubin [Mass/Vol] 0.30 mg/dL Normal 0.20-1.00 [facility] Comment on above: Result Comment: For patients on eltrombopag therapy, use of Dimension [place] TBIL is not recommended. Performed By: #### L 500.4050 ####[facility] [address] [place], [address] BUN/CRE 25.0 RATIO High 10-20 [facility] Comment on above: Performed By: #### L 500.4050 ####[facility] [address] [place], [address] CA,Total 7.9 mg/dL Low 8.5-10.1 [facility] Comment on above: Performed By: #### L 500.4050 ####[facility] [address] [place], [address] Chloride [Moles/Vol] 107 mmol/L Normal 98-107 [facility] Comment on above: Performed By: #### L 500.4050 ####[facility] [address] [place], [address] CO2 [Moles/Vol] 27.0 mmol/L Normal 21.0-32.0 [facility] Comment on above: Performed By: #### L 500.4050 ####[facility] [address] [place], [address] Creatinine [Mass/Vol] 1.04 mg/dL High 0.55-1.02 [facility] Comment on above: Result Comment: The validity of the calculated GFR GFRAA in patients over70 years has not been determined. Clinical correlation isessential. Performed By: #### L 500.4050 ####[facility] [address] [place], [address] ECRCL 64.35 ml/min Normal [facility] Comment on above: Performed By: #### L 500.4050 ####[facility] [address] [place], [address] EST GFR - AA 66 mL/min Normal >60 [facility] Comment on above: Result Comment: Afri can [place] GFR Calc Performed By: #### L 500.4050 ####[facility] [address] [place], [address] GAP 8 Normal 5-15 [facility] Comment on above: Performed By: #### L 500.4050 ####[facility] [address] [place], [address] GFR/1.73 sq M.predicted among non-blacks MDRD (S/P/Bld) [Vol rate/Area] 55 mL/min/{1.73_m2} Low >60 [facility] Comment on above: Result Comment: Non- GFR Calc Performed By: #### L 500.4050 ####[facility] [address] [place], [address] Globulin (S) [Mass/Vol] 3.0 g/dL Normal 2.2-4.2 [facility] Comment on above: Performed By: #### L 500.4050 ####[facility] [address] [place], [address] Glucose [Mass/Vol] 183 mg/dL High 74-106 [facility] Comment on above: Result Comment: Fast ing Glucose result greater than or equal to 126 mg/dLsuggests DIABETES MELLITUS per A.D.A. criteria. Performed By: #### L 500.4050 ####[facility] [address] [place], [address] Potassium [Moles/Vol] 3.8 mmol/L Normal 3.5-5.1 [facility] Comment on above: Performed By: #### L 500.4050 ####[facility] [address] [place], [address] Sodium [Moles/Vol] 142 mmol/L Normal 136-145 [facility] Comment on above: Performed By: #### L 500.4050 ####[facility] [address] [place], [address] T PROT 4.8 g/dL Low 6.4-8.2 [facility] Comment on above: Performed By: #### L 500.4050 ####[facility] [address] [place], [address] Urea nitrogen [Mass/Vol] 26 mg/dL High 7-18 [facility] Comment on above: Performed By: #### L 500.4050 ####[facility] [address] [place], [address] Culture, Blood (WB)on 2023 CUB Normal [facility] Comment on above: Performed By: #### M 200.1000 ####[facility] [address] [place], [address] Vancomycin, Random Levelon 0 01-03-2024 VANCO, RANDOM 34.5 ug/mL High 0.0-15.0 [facility] Comment on above: Result Comment: VANC OMYCIN STANDARD DRUG THERAPY: CRITICAL VALUE IS > 15.0 mg/LVANCOMYCIN HIGH INTENSITY THERAPY: CRITICAL VALUE IS > 20.0 mg/LPLEASE CONTACT PHARMACY SERVICES (#8840) FOR INTERPRETATIONOF RESULTS. THIS RESULT DOES NOT REPRESENT A PEAK OR TROUGHLEVEL FOR THIS DRUG. Performed By: #### L 501.8850 ####[facility] [address] [place], [address] Basic Metabolic Profile (BMP )on 01-02-2024 BUN Normal 7-18 [facility] Comment on above: Result Comment: @OK TO CANCEL PER C.LUCIA DUPLICATE ORDER Performed By: #### L 500.2500 ####[facility] [address] [place], [address] BUN/CRE Normal 10-20 [facility] Comment on above: Result Comment: @OK TO CANCEL PER C.LUCIA DUPLICATE ORDER Performed By: #### L 500.2500 ####[facility] [address] [place], [address] CA,Total Normal 8.5-10.1 [facility] Comment on above: Result Comment: @OK TO CANCEL PER C.LUCIA DUPLICATE ORDER Performed By: #### L 500.2500 ####[facility] [address] [place], [address] CL Normal 98-107 [facility] Comment on above: Result Comment: @OK TO CANCEL PER C.LUCIA DUPLICATE ORDER Performed By: #### L 500.2500 ####[facility] [address] [place], [address] CO2 Normal 21.0-32.0 [facility] Comment on above: Result Comment: @OK TO CANCEL PER C.LUCIA DUPLICATE ORDER Performed By: #### L 500.2500 ####[facility] [address] [place], [address] CREAT,SERUM Normal 0.55-1.02 [facility] Comment on above: Result Comment: @OK TO CANCEL PER C.LUCIA DUPLICATE ORDER Performed By: #### L 500.2500 ####[facility] [address] [place], [address] EST GFR Normal >60 [facility] Comment on above: Result Comment: @OK TO CANCEL PER C.LUCIA DUPLICATE ORDER Performed By: #### L 500.2500 ####[facility] [address] [place], [address] EST GFR - AA Normal >60 [facility] Comment on above: Result Comment: @OK TO CANCEL PER C.LUCIA DUPLICATE ORDER Performed By: #### L 500.2500 ####[facility] [address] [place], [address] GAP Normal 5-15 [facility] Comment on above: Result Comment: @OK TO CANCEL PER C.LUCIA DUPLICATE ORDER Performed By: #### L 500.2500 ####[facility] [address] [place], [address] GLU Normal 74-106 [facility] Comment on above: Result Comment: @OK TO CANCEL PER C.LUCIA DUPLICATE ORDER Performed By: #### L 500.2500 ####[facility] [address] [place], [address] Potassium Normal 3.5-5.1 [facility] Comment on above: Result Comment: @OK TO CANCEL PER C.LUCIA DUPLICATE ORDER Performed By: #### L 500.2500 ####[facility] [address] [place], [address] Basic Metabolic Profile (BMP) Normal 136-145 [facility] Comment on above: Result Comment: @OK TO CANCEL PER C.LUCIA DUPLICATE ORDER Performed By: #### L 500.2500 ####[facility] [address] [place], [address] BUN/CRE 35.1 RATIO High 10-20 [facility] Comment on above: Performed By: #### L 500.2500, L501.5200 ####[facility] [address] [place], [address] CA,Total 8.1 mg/dL Low 8.5-10.1 [facility] Comment on above: Performed By: #### L 500.2500, L501.5200 ####[facility] [address] [place], [address] Chloride [Moles/Vol] 108 mmol/L High 98-107 [facility] Comment on above: Performed By: #### L 500.2500, L501.5200 ####[facility] [address] [place], [address] CO2 [Moles/Vol] 29.0 mmol/L Normal 21.0-32.0 [facility] Comment on above: Performed By: #### L 500.2500, L501.5200 ####[facility] [address] [place], [address] Creatinine [Mass/Vol] 0.66 mg/dL Normal 0.55-1.02 [facility] Comment on above: Result Comment: The validity of the calculated GFR GFRAA in patients over70 years has not been determined. Clinical correlation isessential. Performed By: #### L 500.2500, L501.5200 ####[facility] [address] [place], [address] ECRCL 83.81 ml/min Normal [facility] Comment on above: Performed By: #### L 500.2500, L501.5200 ####[facility] [address] [place], [address] EST GFR - AA 113 mL/min Normal >60 [facility] Comment on above: Result Comment: Afri can [place] GFR Calc Performed By: #### L 500.2500, L501.5200 ####[facility] [address] [place], [address] GAP 6 Normal 5-15 [facility] Comment on above: Performed By: #### L 500.2500, L501.5200 ####[facility] [address] [place], [address] GFR/1.73 sq M.predicted among non-blacks MDRD (S/P/Bld) [Vol rate/Area] 93 mL/min/{1.73_m2} Normal >60 [facility] Comment on above: Result Comment: Non- GFR Calc Performed By: #### L 500.2500, L501.5200 ####[facility] [address] [place], [address] Glucose [Mass/Vol] 165 mg/dL High 74-106 [facility] Comment on above: Result Comment: Fast ing Glucose result greater than or equal to 126 mg/dLsuggests DIABETES MELLITUS per A.D.A. criteria. Performed By: #### L 500.2500, L501.5200 ####[facility] [address] [place], [address] Potassium [Moles/Vol] 4.0 mmol/L Normal 3.5-5.1 [facility] Comment on above: Performed By: #### L 500.2500, L501.5200 ####[facility] [address] [place], [address] Sodium [Moles/Vol] 143 mmol/L Normal 136-145 [facility] Comment on above: Performed By: #### L 500.2500, L501.5200 ####[facility] [address] [place], [address] Urea nitrogen [Mass/Vol] 23 mg/dL High 7-18 [facility] Comment on above: Performed By: #### L 500.2500, L501.5200 ####[facility] [address] [place], [address] Consultation - Infectious Dx on 01-02-2024 Consultation - Infectious Dx Normal [facility] Magnesiumon 01-02-2024 Magnesium [Mass/Vol] 1.7 mg/dL Normal 1.6-2.6 [facility] Comment on above: Performed By: #### L 500.2500, L501.5200 ####[facility] [address] [place], [address] Vancomycin, Trough Levelon 0 01-02-2024 VANCO, TROUGH 43.5 ug/mL High 5.0-15.0 [facility] Comment on above: Order Comment: Comme nts: Trough to be drawn 30 mins prior to scheduled [id number] Result Comment: VANC OMYCIN STANDARED DRUG THERAPY TROUGH LEVEL: 5.0 - 15.0 mg/LVANCOMYCIN HIGH INTENSITY THERAPY TROUGH LEVEL: 15.0 - 20.0 mg/LHigh Intensity therapy recommended for serious lifethreatening infections include:- Jbhnogadck-Uoswdgdzqdjw-Gwemmiogq (Ventilator/Healtcare Associated)-SepsisPLEASE CONTACT PHARMACY SERVICES (#6370) FOR INTERPRETATIONOF RESULTS. Performed By: #### L 501.8859 ####[facility] [address], [address] Alcohol, Blood (Medical)-Ser umon 01-01-2024 SERUM ETOH 5.0 mg/dL Normal [facility] Comment on above: Result Comment: The serum:whole blood ethanol ratio is approximately 1.14and varies slightly with hematocrit.Medical Alcohol reference interval and critical value innon-tolerant individuals; 50 - 100 Impairment 100 Intoxication 100 - 250 Severe Poisoning 250 - 400 Deep/possible fatal coma Performed By: #### L 501.9100, L505.5000, L506.0250 ####[facility] [address] [place], [address] CBC W/Diff, Automatedon 12-09 Absolute Lymph 0.64 X10 3/uL Low 0.83-4.51 [facility] Comment on above: Performed By: #### L 500.4050, L501.9520, L100.0100, L501.2300, L501.5200 ####[facility] [address] [place], [address] Absolute Neut 4.9 X10 3/uL Normal 2.0-7.7 [facility] Comment on above: Performed By: #### L 500.4050, L501.9520, L100.0100, L501.2300, L501.5200 ####[facility] [address] [place], [address] Basophils/100 WBC (Bld) 0.4 % Normal 0-1 [facility] Comment on above: Performed By: #### L 500.4050, L501.9520, L100.0100, L501.2300, L501.5200 ####[facility] [address] [place], [address] Eosinophils/100 WBC (Bld) 0.4 % Normal 0-5 [facility] Comment on above: Performed By: #### L 500.4050, L501.9520, L100.0100, L501.2300, L501.5200 ####[facility] [address] [place], [address] Erythrocyte distribution width (RBC) [Ratio] 17.4 % High 11.6-14.6 [facility] Comment on above: Performed By: #### L 500.4050, L501.9520, L100.0100, L501.2300, L501.5200 ####[facility] [address] [place], [address] Hematocrit (Bld) [Volume fraction] 31.3 % Low 37-47 [facility] Comment on above: Performed By: #### L 500.4050, L501.9520, L100.0100, L501.2300, L501.5200 ####[facility] [address] [place], [address] Hemoglobin (Bld) [Mass/Vol] 9.3 g/dL Low 12.0-15.0 [facility] Comment on above: Performed By: #### L 500.4050, L501.9520, L100.0100, L501.2300, L501.5200 ####[facility] [address] [place], [address] IG% 0.500 Normal 0.0-0.9 [facility] Comment on above: Result Comment: IG% - Immature Granulocytes (promyelocytes, myelocytes andmetamyelocytes) > 1% indicates that a LEFT SHIFT is Present. Performed By: #### L 500.4050, L501.9520, L100.0100, L501.2300, L501.5200 ####[facility] [address] [place], [address] Lymphocytes/100 WBC (Bld) 11.3 % Low 19-41 [facility] Comment on above: Performed By: #### L 500.4050, L501.9520, L100.0100, L501.2300, L501.5200 ####[facility] [address] [place], [address] MCH (RBC) [Entitic mass] 25.3 pg Low 27.0-32.0 [facility] Comment on above: Performed By: #### L 500.4050, L501.9520, L100.0100, L501.2300, L501.5200 ####[facility] [address] [place], [address] MCHC (RBC) [Mass/Vol] 29.7 g/dL Low 32-36 [facility] Comment on above: Performed By: #### L 500.4050, L501.9520, L100.0100, L501.2300, L501.5200 ####[facility] [address] [place], [address] MCV (RBC) [Entitic vol] 85.1 fL Normal 81-99 [facility] Comment on above: Performed By: #### L 500.4050, L501.9520, L100.0100, L501.2300, L501.5200 ####[facility] [address] [place], [address] Monocytes/100 WBC (Bld) 1.1 % Normal 0-10 [facility] Comment on above: Performed By: #### L 500.4050, L501.9520, L100.0100, L501.2300, L501.5200 ####[facility] [address] [place], [address] Neutrophils/100 WBC (Bld) 86.3 % High 47-70 [facility] Comment on above: Performed By: #### L 500.4050, L501.9520, L100.0100, L501.2300, L501.5200 ####[facility] [address] [place], [address] Nucleated RBC (Bld) [#/Vol] 0 10*3/uL Normal 0-5 [facility] Comment on above: Performed By: #### L 500.4050, L501.9520, L100.0100, L501.2300, L501.5200 ####[facility] [address] [place], [address] Platelet mean volume (Bld) [Entitic vol] 9.2 fL Normal 6.2-12.0 [facility] Comment on above: Performed By: #### L 500.4050, L501.9520, L100.0100, L501.2300, L501.5200 ####[facility] [address] [place], [address] Platelets (Bld) [#/Vol] 196 10*3/uL Normal 150-450 [facility] Comment on above: Performed By: #### L 500.4050, L501.9520, L100.0100, L501.2300, L501.5200 ####[facility] [address] [place], [address] RBC (Bld) [#/Vol] 3.68 10*6/uL Low 4.2-5.4 [facility] Comment on above: Performed By: #### L 500.4050, L501.9520, L100.0100, L501.2300, L501.5200 ####[facility] [address] [place], [address] RDW SD 54.6 fl High 35.1-43.9 [facility] Comment on above: Performed By: #### L 500.4050, L501.9520, L100.0100, L501.2300, L501.5200 ####[facility] [address] [place], [address] WBC (Bld) [#/Vol] 5.7 10*3/uL Normal 4.4-11.0 [facility] Comment on above: Performed By: #### L 500.4050, L501.9520, L100.0100, L501.2300, L501.5200 ####[facility] [address] [place], [address] Chest 1 View (Portable)on Chest 1 View (Portable) Normal [facility] Comprehensive Metabolic Prof ilon 01-01-2024 Albumin [Mass/Vol] 1.4 g/dL Low 3.2-5.0 [facility] Comment on above: Performed By: #### L 500.4050, L501.9520, L100.0100, L501.2300, L501.5200 ####[facility] [address] [place], [address] Albumin/Globulin [Mass ratio] 0.5 {ratio} Low 0.9-2.4 [facility] Comment on above: Performed By: #### L 500.4050, L501.9520, L100.0100, L501.2300, L501.5200 ####[facility] [address] [place], [address] ALK P 128 U/L High 45-117 [facility] Comment on above: Performed By: #### L 500.4050, L501.9520, L100.0100, L501.2300, L501.5200 ####[facility] [address] [place], [address] ALT [Catalytic activity/Vol] 12 U/L Low 13-56 [facility] Comment on above: Performed By: #### L 500.4050, L501.9520, L100.0100, L501.2300, L501.5200 ####[facility] [address] [place], [address] AST [Catalytic activity/Vol] 15 U/L Normal 15-37 [facility] Comment on above: Performed By: #### L 500.4050, L501.9520, L100.0100, L501.2300, L501.5200 ####[facility] [address] [place], [address] Bilirubin [Mass/Vol] 0.30 mg/dL Normal 0.20-1.00 [facility] Comment on above: Result Comment: For patients on eltrombopag therapy, use of Dimension [place] TBIL is not recommended. Performed By: #### L 500.4050, L501.9520, L100.0100, L501.2300, L501.5200 ####[facility] [address] [place], [address] BUN/CRE 43.7 RATIO High 10-20 [facility] Comment on above: Performed By: #### L 500.4050, L501.9520, L100.0100, L501.2300, L501.5200 ####[facility] [address] [place], [address] CA,Total 7.4 mg/dL Low 8.5-10.1 [facility] Comment on above: Performed By: #### L 500.4050, L501.9520, L100.0100, L501.2300, L501.5200 ####[facility] [address] [place], [address] Chloride [Moles/Vol] 109 mmol/L High 98-107 [facility] Comment on above: Performed By: #### L 500.4050, L501.9520, L100.0100, L501.2300, L501.5200 ####[facility] [address] [place], [address] CO2 [Moles/Vol] 29.0 mmol/L Normal 21.0-32.0 [facility] Comment on above: Performed By: #### L 500.4050, L501.9520, L100.0100, L501.2300, L501.5200 ####[facility] [address] [place], [address] Creatinine [Mass/Vol] 0.46 mg/dL Low 0.55-1.02 [facility] Comment on above: Result Comment: The validity of the calculated GFR GFRAA in patients over70 years has not been determined. Clinical correlation isessential. Performed By: #### L 500.4050, L501.9520, L100.0100, L501.2300, L501.5200 ####[facility] [address] [place], [address] ECRCL 83.43 ml/min Normal [facility] Comment on above: Performed By: #### L 500.4050, L501.9520, L100.0100, L501.2300, L501.5200 ####[facility] [address] [place], [address] EST GFR - AA 171 mL/min Normal >60 [facility] Comment on above: Result Comment: Afri can [place] GFR Calc Performed By: #### L 500.4050, L501.9520, L100.0100, L501.2300, L501.5200 ####[facility] [address] [place], [address] GAP 5 Normal 5-15 [facility] Comment on above: Performed By: #### L 500.4050, L501.9520, L100.0100, L501.2300, L501.5200 ####[facility] [address] [place], [address] GFR/1.73 sq M.predicted among non-blacks MDRD (S/P/Bld) [Vol rate/Area] 141 mL/min/{1.73_m2} Normal >60 [facility] Comment on above: Result Comment: Non- GFR Calc Performed By: #### L 500.4050, L501.9520, L100.0100, L501.2300, L501.5200 ####[facility] [address] [place], [address] Globulin (S) [Mass/Vol] 3.0 g/dL Normal 2.2-4.2 [facility] Comment on above: Performed By: #### L 500.4050, L501.9520, L100.0100, L501.2300, L501.5200 ####[facility] [address] [place], [address] Glucose [Mass/Vol] 151 mg/dL High 74-106 [facility] Comment on above: Result Comment: Fast ing Glucose result greater than or equal to 126 mg/dLsuggests DIABETES MELLITUS per A.D.A. criteria. Performed By: #### L 500.4050, L501.9520, L100.0100, L501.2300, L501.5200 ####[facility] [address] [place], [address] Potassium [Moles/Vol] 3.7 mmol/L Normal 3.5-5.1 [facility] Comment on above: Performed By: #### L 500.4050, L501.9520, L100.0100, L501.2300, L501.5200 ####[facility] [address] [place], [address] Sodium [Moles/Vol] 143 mmol/L Normal 136-145 [facility] Comment on above: Performed By: #### L 500.4050, L501.9520, L100.0100, L501.2300, L501.5200 ####[facility] [address] [place], [address] T PROT 4.4 g/dL Low 6.4-8.2 [facility] Comment on above: Performed By: #### L 500.4050, L501.9520, L100.0100, L501.2300, L501.5200 ####[facility] [address] [place], [address] Urea nitrogen [Mass/Vol] 20 mg/dL High 7-18 [facility] Comment on above: Performed By: #### L 500.4050, L501.9520, L100.0100, L501.2300, L501.5200 ####[facility] [address] [place], [address] Echo Completeon 01-01-2024 Echo Complete Normal [facility] Magnesiumon 01-01-2024 Magnesium [Mass/Vol] 1.4 mg/dL Low 1.6-2.6 [facility] [place] Comment on above: Performed By: #### L 500.4050, L501.9520, L100.0100, L501.2300, L501.5200 ####[facility] [address] [place], [address] Phosphoruson 01-01-2024 Phosphate [Mass/Vol] 3.4 mg/dL Normal 2.5-4.9 [facility] [place] Comment on above: Performed By: #### L 500.4050, L501.9520, L100.0100, L501.2300, L501.5200 ####[facility] [address] [place], [address] Thyroid Stim Hormone (TSH)on 01-01-2024 TSH 1.650 uIU/mL Normal 0.358-3.740 [facility] Comment on above: Performed By: #### L 500.4050, L501.9520, L100.0100, L501.2300, L501.5200 ####[facility] [address] [place], [address] Urine Drug Screen (VISTA)on 01-01-2024 VISTA UDS PH 6 Normal [facility] Comment on above: Result Comment: AMENDED REPORT 01/01/24 0625 VISTA UDS PH previously reported as: 5 Performed By: #### L 501.9100, L505.5000, L506.0250 ####[facility] [address] [place], [address] Venous Blood Gason 4 Blood Gas Type SOLIS Normal [facility] Comment on above: Performed By: #### L 9000.0810 ####[facility] [address] [place], [address] CO2 [Moles/Vol] 29 mmol/L Normal 23-33 [facility] Comment on above: Performed By: #### L 9000.0810 ####[facility] [address] [place], [address] FI02 30.0 Normal [facility] Comment on above: Performed By: #### L 9000.0810 ####[facility] [address] [place], [address] HCO3 (Bld) [Moles/Vol] 28 mmol/L High 22-26 [facility] Comment on above: Performed By: #### L 9000.0810 ####[facility] [address] [place], [address] O2 Delivery Dev BiPAP Normal [facility] Comment on above: Performed By: #### L 9000.0810 ####[facility] [address] [place], [address] SITE Not entered Normal [facility] Comment on above: Performed By: #### L 9000.0810 ####[facility] [address] [place], [address] VBG BE 4 mmol/L High -1.0-3.5 [facility] Comment on above: Performed By: #### L 9000.0810 ####[facility] [address] [place], [address] VBG pCO2 38.9 mmHg Low 41-51 [facility] Comment on above: Performed By: #### L 9000.0810 ####[facility] [address] [place], [address] VBG pH 7.47 High 7.32-7.42 [facility] Comment on above: Performed By: #### L 9000.0810 ####[facility] [address] [place], [address] VBG PO2 51 mmHg High 25-40 [facility] Comment on above: Performed By: #### L 9000.0810 ####[facility] [address] [place], [address] VBG SO2 88 High 50-70 [facility] Comment on above: Performed By: #### L 9000.0810 ####[facility] [address] [place], [address] 12 Lead EKGon 12-31-2023 12 Lead EKG Normal [facility] Ammoniaon 12-31-2023 Ammonia (P) [Moles/Vol] 19.0 umol/L Normal 11-32 [facility] Comment on above: Performed By: #### L 503.5510 ####[facility] [address] [place], [address] BNP,B-Type NATRIURETIC PEPTI Larry 12-31-2023 Natriuretic peptide B (Bld) [Mass/Vol] 566.6 pg/mL High 0-100 [facility] Comment on above: Performed By: #### L 503.6620 ####[facility] [address] [place], [address] Blood Gases by CPSon 024 ANUJ TEST Positive Normal [facility] Comment on above: Performed By: #### L 9000.0800 ####[facility] [address] [place], [address] Base excess Calc (Bld) [Moles/Vol] 9 mmol/L High -2 to +2 [facility] Comment on above: Performed By: #### L 9000.0800 ####[facility] [address] [place], [address] Blood Gas Type ART Normal [facility] Comment on above: Performed By: #### L 9000.0800 ####[facility] [address] [place], [address] CO2 [Moles/Vol] 34 mmol/L Normal [facility] Comment on above: Performed By: #### L 9000.0800 ####[facility] [address] [place], [address] FI02 50.0 Normal [facility] Comment on above: Performed By: #### L 9000.0800 ####[facility] [address] [place], [address] HCO3 (Bld) [Moles/Vol] 32.6 mmol/L High 22-26 [facility] Comment on above: Performed By: #### L 9000.0800 ####[facility] [address] [place], [address] Mode Not entered [facility] Comment on above: Performed By: #### L 9000.0800 ####[facility] [address] [place], [address] O2 Delivery Dev BiPAP [facility] Comment on above: Performed By: #### L 9000.0800 ####[facility] [address] [place], [address] pCO2 45.3 mmHg High 35-45 [facility] Comment on above: Performed By: #### L 9000.0800 ####[facility] [address] [place], [address] PEEP 6 Normal [facility] Comment on above: Performed By: #### L 9000.0800 ####[facility] [address] [place], [address] pH (Bld) 7.47 [pH] High 7.35-7.45 [facility] Comment on above: Performed By: #### L 9000.0800 ####[facility] [address] [place], [address] PIP 14 Normal [facility] Comment on above: Performed By: #### L 9000.0800 ####[facility] [address] [place], [address] PO2 198 mmHG High 75-100 [facility] Comment on above: Performed By: #### L 0.0800 ####[facility] [address] [place], [address] RR 12 Normal [facility] Comment on above: Performed By: #### L 0.0800 ####[facility] [address] [place], [address] SITE L Radial Normal [facility] Comment on above: Performed By: #### L 0.0800 ####[facility] [address] [place], [address] SO2 100 High 95-99 [facility] Comment on above: Performed By: #### L 0.0800 ####[facility] [address] [place], [address] CBC W/Diff, Automatedon 09-2 -2023 Absolute Lymph 1.86 X10 3/uL Normal 0.83-4.51 [facility] Comment on above: Performed By: #### L 100.0100, L501.4020, L300.3900, L300.4310, L500.4050, L503.6005 ####[facility] [address] [place], [address] Absolute Neut 4.9 X10 3/uL Normal 2.0-7.7 [facility] Comment on above: Performed By: #### L 100.0100, L501.4020, L300.3900, L300.4310, L500.4050, L503.6005 ####[facility] [address] [place], [address] Basophils/100 WBC (Bld) 0.7 % Normal 0-1 [facility] Comment on above: Performed By: #### L 100.0100, L501.4020, L300.3900, L300.4310, L500.4050, L503.6005 ####[facility] [address] [place], [address] Eosinophils/100 WBC (Bld) 2.9 % Normal 0-5 [facility] Comment on above: Performed By: #### L 100.0100, L501.4020, L300.3900, L300.4310, L500.4050, L503.6005 ####[facility] [address] [place], [address] Erythrocyte distribution width (RBC) [Ratio] 17.7 % High 11.6-14.6 [facility] Comment on above: Performed By: #### L 100.0100, L501.4020, L300.3900, L300.4310, L500.4050, L503.6005 ####[facility] [address] [place], [address] Hematocrit (Bld) [Volume fraction] 32.8 % Low 37-47 [facility] Comment on above: Performed By: #### L 100.0100, L501.4020, L300.3900, L300.4310, L500.4050, L503.6005 ####[facility] [address] [place], [address] Hemoglobin (Bld) [Mass/Vol] 9.9 g/dL Low 12.0-15.0 [facility] Comment on above: Performed By: #### L 100.0100, L501.4020, L300.3900, L300.4310, L500.4050, L503.6005 ####[facility] [address] [place], [address] IG% 0.400 Normal 0.0-0.9 [facility] Comment on above: Result Comment: IG% - Immature Granulocytes (promyelocytes, myelocytes andmetamyelocytes) > 1% indicates that a LEFT SHIFT is Present. Performed By: #### L 100.0100, L501.4020, L300.3900, L300.4310, L500.4050, L503.6005 ####[facility] [address] [place], [address] Lymphocytes/100 WBC (Bld) 24.3 % Normal 19-41 [facility] Comment on above: Performed By: #### L 100.0100, L501.4020, L300.3900, L300.4310, L500.4050, L503.6005 ####[facility] [address] [place], [address] MCH (RBC) [Entitic mass] 25.8 pg Low 27.0-32.0 [facility] Comment on above: Performed By: #### L 100.0100, L501.4020, L300.3900, L300.4310, L500.4050, L503.6005 ####[facility] [address] [place], [address] MCHC (RBC) [Mass/Vol] 30.2 g/dL Low 32-36 [facility] Comment on above: Performed By: #### L 100.0100, L501.4020, L300.3900, L300.4310, L500.4050, L503.6005 ####[facility] [address] [place], [address] MCV (RBC) [Entitic vol] 85.6 fL Normal 81-99 [facility] Comment on above: Performed By: #### L 100.0100, L501.4020, L300.3900, L300.4310, L500.4050, L503.6005 ####[facility] [address] [place], [address] Monocytes/100 WBC (Bld) 7.8 % Normal 0-10 [facility] Comment on above: Performed By: #### L 100.0100, L501.4020, L300.3900, L300.4310, L500.4050, L503.6005 ####[facility] [address] [place], [address] Neutrophils/100 WBC (Bld) 63.9 % Normal 47-70 [facility] Comment on above: Performed By: #### L 100.0100, L501.4020, L300.3900, L300.4310, L500.4050, L503.6005 ####[facility] [address] [place], [address] Nucleated RBC (Bld) [#/Vol] 0 10*3/uL Normal 0-5 [facility] Comment on above: Performed By: #### L 100.0100, L501.4020, L300.3900, L300.4310, L500.4050, L503.6005 ####[facility] [address] [place], [address] Platelet mean volume (Bld) [Entitic vol] 9.1 fL Normal 6.2-12.0 [facility] Comment on above: Performed By: #### L 100.0100, L501.4020, L300.3900, L300.4310, L500.4050, L503.6005 ####[facility] [address] [place], [address] Platelets (Bld) [#/Vol] 239 10*3/uL Normal 150-450 [facility] Comment on above: Performed By: #### L 100.0100, L501.4020, L300.3900, L300.4310, L500.4050, L503.6005 ####[facility] [address] [place], [address] RBC (Bld) [#/Vol] 3.83 10*6/uL Low 4.2-5.4 [facility] Comment on above: Performed By: #### L 100.0100, L501.4020, L300.3900, L300.4310, L500.4050, L503.6005 ####[facility] [address] [place], [address] RDW SD 55.0 fl High 35.1-43.9 [facility] Comment on above: Performed By: #### L 100.0100, L501.4020, L300.3900, L300.4310, L500.4050, L503.6005 ####[facility] [address] [place], [address] WBC (Bld) [#/Vol] 7.7 10*3/uL Normal 4.4-11.0 [facility] Comment on above: Performed By: #### L 100.0100, L501.4020, L300.3900, L300.4310, L500.4050, L503.6005 ####[facility] [address] [place], [address] Absolute Lymph 2.18 X10 3/uL Normal 0.83-4.51 [facility] Comment on above: Order Comment: 514.1 Performed By: #### L 501.6710, L500.4050, L501.8820, L100.0100 ####[facility] [address] [place], [address] Absolute Neut 5.0 X10 3/uL Normal 2.0-7.7 [facility] Comment on above: Order Comment: 514.1 Performed By: #### L 501.6710, L500.4050, L501.8820, L100.0100 ####[facility] [address] [place], [address] Basophils/100 WBC (Bld) 0.7 % Normal 0-1 [facility] Comment on above: Order Comment: 514.1 Performed By: #### L 501.6710, L500.4050, L501.8820, L100.0100 ####[facility] [address] [place], [address] Eosinophils/100 WBC (Bld) 3.8 % Normal 0-5 [facility] Comment on above: Order Comment: 514.1 Performed By: #### L 501.6710, L500.4050, L501.8820, L100.0100 ####[facility] [address] [place], [address] Erythrocyte distribution width (RBC) [Ratio] 17.8 % High 11.6-14.6 [facility] Comment on above: Order Comment: 514.1 Performed By: #### L 501.6710, L500.4050, L501.8820, L100.0100 ####[facility] [address] [place], [address] Hematocrit (Bld) [Volume fraction] 32.6 % Low 37-47 [facility] Comment on above: Order Comment: 514.1 Performed By: #### L 501.6710, L500.4050, L501.8820, L100.0100 ####[facility] [address] [place], [address] Hemoglobin (Bld) [Mass/Vol] 9.7 g/dL Low 12.0-15.0 [facility] Comment on above: Order Comment: 514.1 Performed By: #### L 501.6710, L500.4050, L501.8820, L100.0100 ####[facility] [address] [place], [address] IG% 0.200 Normal 0.0-0.9 [facility] Comment on above: Order Comment: 514.1 Result Comment: IG% - Immature Granulocytes (promyelocytes, myelocytes andmetamyelocytes) > 1% indicates that a LEFT SHIFT is Present. Performed By: #### L 501.6710, L500.4050, L501.8820, L100.0100 ####[facility] [address] [place], [address] Lymphocytes/100 WBC (Bld) 26.6 % Normal 19-41 [facility] Comment on above: Order Comment: 514.1 Performed By: #### L 501.6710, L500.4050, L501.8820, L100.0100 ####[facility] [address] [place], [address] MCH (RBC) [Entitic mass] 25.7 pg Low 27.0-32.0 [facility] Comment on above: Order Comment: 514.1 Performed By: #### L 501.6710, L500.4050, L501.8820, L100.0100 ####[facility] [address] [place], [address] MCHC (RBC) [Mass/Vol] 29.8 g/dL Low 32-36 [facility] Comment on above: Order Comment: 514.1 Performed By: #### L 501.6710, L500.4050, L501.8820, L100.0100 ####[facility] [address] [place], [address] MCV (RBC) [Entitic vol] 86.2 fL Normal 81-99 [facility] Comment on above: Order Comment: 514.1 Performed By: #### L 501.6710, L500.4050, L501.8820, L100.0100 ####[facility] [address] [place], [address] Monocytes/100 WBC (Bld) 7.4 % Normal 0-10 [facility] Comment on above: Order Comment: 514.1 Performed By: #### L 501.6710, L500.4050, L501.8820, L100.0100 ####[facility] [address] [place], [address] Neutrophils/100 WBC (Bld) 61.3 % Normal 47-70 [facility] Comment on above: Order Comment: 514.1 Performed By: #### L 501.6710, L500.4050, L501.8820, L100.0100 ####[facility] [address] [place], [address] Nucleated RBC (Bld) [#/Vol] 0 10*3/uL Normal 0-5 [facility] Comment on above: Order Comment: 514.1 Performed By: #### L 501.6710, L500.4050, L501.8820, L100.0100 ####[facility] [address] [place], [address] Platelet mean volume (Bld) [Entitic vol] 9.8 fL Normal 6.2-12.0 [facility] Comment on above: Order Comment: 514.1 Performed By: #### L 501.6710, L500.4050, L501.8820, L100.0100 ####[facility] [address] [place], [address] Platelets (Bld) [#/Vol] 220 10*3/uL Normal 150-450 [facility] Comment on above: Order Comment: 514.1 Performed By: #### L 501.6710, L500.4050, L501.8820, L100.0100 ####[facility] [address] [place], [address] RBC (Bld) [#/Vol] 3.78 10*6/uL Low 4.2-5.4 [facility] Comment on above: Order Comment: 514.1 Performed By: #### L 501.6710, L500.4050, L501.8820, L100.0100 ####[facility] [address] [place], [address] RDW SD 55.7 fl High 35.1-43.9 [facility] Comment on above: Order Comment: 514.1 Performed By: #### L 501.6710, L500.4050, L501.8820, L100.0100 ####[facility] [address] [place], [address] WBC (Bld) [#/Vol] 8.2 10*3/uL Normal 4.4-11.0 [facility] Comment on above: Order Comment: 514.1 Performed By: #### L 501.6710, L500.4050, L501.8820, L100.0100 ####[facility] [address] [place], [address] CRPon 12-31-2023 C-REACTIVE PROT 49.30 mg/L High 0.0-3.0 [facility] Comment on above: Order Comment: 514.1 Result Comment: C-Re active Protein (CRP) provides useful information for thediagnosis, therapy and monitoring of inflammatory processesand associated diseases. For the evaluation of Relative Riskfor Cardiovascular Disease, a High Sensitivity CRP (HSCRP)should be ordered. Performed By: #### L 501.6710, L500.4050, L501.8820, L100.0100 ####[facility] [address] [place], [address] Chest 1 View (Portable)on Chest 1 View (Portable) Normal [facility] Comprehensive Metabolic Prof ilon 12-31-2023 Albumin [Mass/Vol] 1.4 g/dL Low 3.2-5.0 [facility] Comment on above: Order Comment: 'TROP ' Serial specimen #1, #2 or #3: 1 Performed By: #### L 100.0100, L501.4020, L300.3900, L300.4310, L500.4050, L503.6005 ####[facility] [address] [place], [address] Albumin/Globulin [Mass ratio] 0.4 {ratio} Low 0.9-2.4 [facility] Comment on above: Order Comment: 'TROP ' Serial specimen #1, #2 or #3: 1 Performed By: #### L 100.0100, L501.4020, L300.3900, L300.4310, L500.4050, L503.6005 ####[facility] [address] [place], [address] ALK P 137 U/L High 45-117 [facility] Comment on above: Order Comment: 'TROP ' Serial specimen #1, #2 or #3: 1 Performed By: #### L 100.0100, L501.4020, L300.3900, L300.4310, L500.4050, L503.6005 ####[facility] [address] [place], [address] ALT [Catalytic activity/Vol] 13 U/L Normal 13-56 [facility] Comment on above: Order Comment: 'TROP ' Serial specimen #1, #2 or #3: 1 Performed By: #### L 100.0100, L501.4020, L300.3900, L300.4310, L500.4050, L503.6005 ####[facility] [address] [place], [address] AST [Catalytic activity/Vol] 21 U/L Normal 15-37 [facility] Comment on above: Order Comment: 'TROP ' Serial specimen #1, #2 or #3: 1 Performed By: #### L 100.0100, L501.4020, L300.3900, L300.4310, L500.4050, L503.6005 ####[facility] [address] [place], [address] Bilirubin [Mass/Vol] 0.30 mg/dL Normal 0.20-1.00 [facility] Comment on above: Order Comment: 'TROP ' Serial specimen #1, #2 or #3: 1 Result Comment: For patients on eltrombopag therapy, use of Dimension [place] TBIL is not recommended. Performed By: #### L 100.0100, L501.4020, L300.3900, L300.4310, L500.4050, L503.6005 ####[facility] [address] [place], [address] BUN/CRE 37.0 RATIO High 10-20 [facility] Comment on above: Order Comment: 'TROP ' Serial specimen #1, #2 or #3: 1 Performed By: #### L 100.0100, L501.4020, L300.3900, L300.4310, L500.4050, L503.6005 ####[facility] [address] [place], [address] CA,Total 7.8 mg/dL Low 8.5-10.1 [facility] Comment on above: Order Comment: 'TROP ' Serial specimen #1, #2 or #3: 1 Performed By: #### L 100.0100, L501.4020, L300.3900, L300.4310, L500.4050, L503.6005 ####[facility] [address] [place], [address] Chloride [Moles/Vol] 106 mmol/L Normal 98-107 [facility] Comment on above: Order Comment: 'TROP ' Serial specimen #1, #2 or #3: 1 Performed By: #### L 100.0100, L501.4020, L300.3900, L300.4310, L500.4050, L503.6005 ####[facility] [address] [place], [address] CO2 [Moles/Vol] 32.0 mmol/L Normal 21.0-32.0 [facility] Comment on above: Order Comment: 'TROP ' Serial specimen #1, #2 or #3: 1 Performed By: #### L 100.0100, L501.4020, L300.3900, L300.4310, L500.4050, L503.6005 ####[facility] [address] [place], [address] Creatinine [Mass/Vol] 0.54 mg/dL Low 0.55-1.02 [facility] Comment on above: Order Comment: 'TROP ' Serial specimen #1, #2 or #3: 1 Result Comment: The validity of the calculated GFR GFRAA in patients over70 years has not been determined. Clinical correlation isessential. Performed By: #### L 100.0100, L501.4020, L300.3900, L300.4310, L500.4050, L503.6005 ####[facility] [address] [place], [address] EST GFR - AA 141 mL/min Normal >60 [facility] Comment on above: Order Comment: 'TROP ' Serial specimen #1, #2 or #3: 1 Result Comment: Afri can [place] GFR Calc Performed By: #### L 100.0100, L501.4020, L300.3900, L300.4310, L500.4050, L503.6005 ####[facility] [address] [place], [address] GAP 4 Low 5-15 [facility] Comment on above: Order Comment: 'TROP ' Serial specimen #1, #2 or #3: 1 Performed By: #### L 100.0100, L501.4020, L300.3900, L300.4310, L500.4050, L503.6005 ####[facility] [address] [place], [address] GFR/1.73 sq M.predicted among non-blacks MDRD (S/P/Bld) [Vol rate/Area] 117 mL/min/{1.73_m2} Normal >60 [facility] Comment on above: Order Comment: 'TROP ' Serial specimen #1, #2 or #3: 1 Result Comment: Non- GFR Calc Performed By: #### L 100.0100, L501.4020, L300.3900, L300.4310, L500.4050, L503.6005 ####[facility] [address] [place], [address] Globulin (S) [Mass/Vol] 3.3 g/dL Normal 2.2-4.2 [facility] Comment on above: Order Comment: 'TROP ' Serial specimen #1, #2 or #3: 1 Performed By: #### L 100.0100, L501.4020, L300.3900, L300.4310, L500.4050, L503.6005 ####[facility] [address] [place], [address] Glucose [Mass/Vol] 139 mg/dL High 74-106 [facility] Comment on above: Order Comment: 'TROP ' Serial specimen #1, #2 or #3: 1 Result Comment: Fast ing Glucose result greater than or equal to 126 mg/dLsuggests DIABETES MELLITUS per A.D.A. criteria. Performed By: #### L 100.0100, L501.4020, L300.3900, L300.4310, L500.4050, L503.6005 ####[facility] [address] [place], [address] Potassium [Moles/Vol] 2.6 mmol/L Invalid Interpretation Code 3.5-5.1 [facility] Comment on above: Order Comment: 'TROP ' Serial specimen #1, #2 or #3: 1 Result Comment: Crit ical Result(s) Called at: 18:38:24 12/31/2023 by:AIME HEREDIA TO [facility]. Results read back by same. Performed By: #### L 100.0100, L501.4020, L300.3900, L300.4310, L500.4050, L503.6005 ####[facility] [address] [place], [address] Sodium [Moles/Vol] 142 mmol/L Normal 136-145 [facility] Comment on above: Order Comment: 'TROP ' Serial specimen #1, #2 or #3: 1 Performed By: #### L 100.0100, L501.4020, L300.3900, L300.4310, L500.4050, L503.6005 ####[facility] [address] [place], [address] T PROT 4.7 g/dL Low 6.4-8.2 [facility] Comment on above: Order Comment: 'TROP ' Serial specimen #1, #2 or #3: 1 Performed By: #### L 100.0100, L501.4020, L300.3900, L300.4310, L500.4050, L503.6005 ####[facility] [address] [place], [address] Urea nitrogen [Mass/Vol] 20 mg/dL High 7-18 [facility] Comment on above: Order Comment: 'TROP ' Serial specimen #1, #2 or #3: 1 Performed By: #### L 100.0100, L501.4020, L300.3900, L300.4310, L500.4050, L503.6005 ####[facility] [address] [place], [address] Albumin [Mass/Vol] 1.4 g/dL Low 3.2-5.0 [facility] Comment on above: Order Comment: 514.1 Performed By: #### L 501.6710, L500.4050, L501.8820, L100.0100 ####[facility] [address] [place], [address] Albumin/Globulin [Mass ratio] 0.4 {ratio} Low 0.9-2.4 [facility] Comment on above: Order Comment: 514.1 Performed By: #### L 501.6710, L500.4050, L501.8820, L100.0100 ####[facility] [address] [place], [address] ALK P 139 U/L High 45-117 [facility] Comment on above: Order Comment: 514.1 Performed By: #### L 501.6710, L500.4050, L501.8820, L100.0100 ####[facility] [address] [place], [address] ALT [Catalytic activity/Vol] 15 U/L Normal 13-56 [facility] Comment on above: Order Comment: 514.1 Performed By: #### L 501.6710, L500.4050, L501.8820, L100.0100 ####[facility] [address] [place], [address] AST [Catalytic activity/Vol] 21 U/L Normal 15-37 [facility] Comment on above: Order Comment: 514.1 Performed By: #### L 501.6710, L500.4050, L501.8820, L100.0100 ####[facility] [address] [place], [address] Bilirubin [Mass/Vol] 0.30 mg/dL Normal 0.20-1.00 [facility] Comment on above: Order Comment: 514.1 Result Comment: For patients on eltrombopag therapy, use of Dimension [place] TBIL is not recommended. Performed By: #### L 501.6710, L500.4050, L501.8820, L100.0100 ####[facility] [address] [place], [address] BUN/CRE 36.6 RATIO High 10-20 [facility] Comment on above: Order Comment: 514.1 Performed By: #### L 501.6710, L500.4050, L501.8820, L100.0100 ####[facility] [address] [place], [address] CA,Total 7.7 mg/dL Low 8.5-10.1 [facility] Comment on above: Order Comment: 514.1 Performed By: #### L 501.6710, L500.4050, L501.8820, L100.0100 ####[facility] [address] [place], [address] Chloride [Moles/Vol] 106 mmol/L Normal 98-107 [facility] Comment on above: Order Comment: 514.1 Performed By: #### L 501.6710, L500.4050, L501.8820, L100.0100 ####[facility] [address] [place], [address] CO2 [Moles/Vol] 29.0 mmol/L Normal 21.0-32.0 [facility] Comment on above: Order Comment: 514.1 Performed By: #### L 501.6710, L500.4050, L501.8820, L100.0100 ####[facility] [address] [place], [address] Creatinine [Mass/Vol] 0.49 mg/dL Low 0.55-1.02 [facility] Comment on above: Order Comment: 514.1 Result Comment: The validity of the calculated GFR GFRAA in patients over70 years has not been determined. Clinical correlation isessential. Performed By: #### L 501.6710, L500.4050, L501.8820, L100.0100 ####[facility] [address] [place], [address] EST GFR - AA 157 mL/min Normal >60 [facility] Comment on above: Order Comment: 514.1 Result Comment: Afri can [place] GFR Calc Performed By: #### L 501.6710, L500.4050, L501.8820, L100.0100 ####[facility] [address] [place], [address] GAP 7 Normal 5-15 [facility] Comment on above: Order Comment: 514.1 Performed By: #### L 501.6710, L500.4050, L501.8820, L100.0100 ####[facility] [address] [place], [address] GFR/1.73 sq M.predicted among non-blacks MDRD (S/P/Bld) [Vol rate/Area] 130 mL/min/{1.73_m2} Normal >60 [facility] Comment on above: Order Comment: 514.1 Result Comment: Non- GFR Calc Performed By: #### L 501.6710, L500.4050, L501.8820, L100.0100 ####[facility] [address] [place], [address] Globulin (S) [Mass/Vol] 3.3 g/dL Normal 2.2-4.2 [facility] Comment on above: Order Comment: 514.1 Performed By: #### L 501.6710, L500.4050, L501.8820, L100.0100 ####[facility] [address] [place], [address] Glucose [Mass/Vol] 80 mg/dL Normal 74-106 [facility] Comment on above: Order Comment: 514.1 Performed By: #### L 501.6710, L500.4050, L501.8820, L100.0100 ####[facility] [address] [place], [address] Potassium [Moles/Vol] 2.9 mmol/L Low 3.5-5.1 [facility] Comment on above: Order Comment: 514.1 Performed By: #### L 501.6710, L500.4050, L501.8820, L100.0100 ####[facility] [address] [place], [address] Sodium [Moles/Vol] 142 mmol/L Normal 136-145 [facility] Comment on above: Order Comment: 514.1 Performed By: #### L 501.6710, L500.4050, L501.8820, L100.0100 ####[facility] [address] [place], [address] T PROT 4.7 g/dL Low 6.4-8.2 [facility] Comment on above: Order Comment: 514.1 Performed By: #### L 501.6710, L500.4050, L501.8820, L100.0100 ####[facility] [address] [place], [address] Urea nitrogen [Mass/Vol] 18 mg/dL Normal 7-18 [facility] Comment on above: Order Comment: 514.1 Performed By: #### L 501.6710, L500.4050, L501.8820, L100.0100 ####[facility] [address] [place], [address] Emergency Department Summary on 12-31-2023 Emergency Department Summary Normal [facility] Folates, (Folic Acid)on 12-09 FOLATES 10.10 ng/mL Normal 3.1-55.4 [facility] Comment on above: Order Comment: Has P atient had X-rays with Contrast this admission? NN Performed By: #### L 501.9100, L505.5000, L506.0250 ####[facility] [address] [place], [address] H AND P Exam - Hospitaliston 12-31-2023 H&P Exam - Hospitalist Normal [facility] L501.4020on 12-31-2023 TROPONIN-I HS 29 pg/mL Normal 3.0-54.0 [facility] Comment on above: Order Comment: 'TROP ' Serial specimen #1, #2 or #3: 1 Result Comment: Kalli torres Note: New Test Units and Gender Specific Reference Ranges. For more information see Policy Stat Procedure [place] High Sensitivity Troponin (TNIH) and attachments. Performed By: #### L 100.0100, L501.4020, L300.3900, L300.4310, L500.4050, L503.6005 ####[facility] [address] [place], [address] Lactic Acidon 12-31-2023 Lactate [Moles/Vol] 1.0 mmol/L Normal 0.4-1.9 [facility] Comment on above: Order Comment: Y Performed By: #### L 100.0100, L501.4020, L300.3900, L300.4310, L500.4050, L503.6005 ####[facility] [address] [place], [address] M100.678on 12-31-2023 M100.678 Normal [facility] Comment on above: Performed By: #### L 400.0001, M100.2200, M100.678 ####[facility] [address] [place], [address] Magnesiumon 12-31-2023 Magnesium [Mass/Vol] 1.1 mg/dL Low 1.6-2.6 [facility] Comment on above: Performed By: #### L 501.5200 ####[facility] [address] [place], [address] Partial Thromboplast Timeon 12-31-2023 aPTT Coag (Bld) [Time] 39.9 s High 24.1-36.2 [facility] Comment on above: Performed By: #### L 100.0100, L501.4020, L300.3900, L300.4310, L500.4050, L503.6005 ####[facility] [address] [place], [address] Prothrombin Time w/INRon INR Coag (PPP) [Relative time] 1.8 {INR} Normal [facility] Comment on above: Performed By: #### L 100.0100, L501.4020, L300.3900, L300.4310, L500.4050, L503.6005 ####[facility] [address] [place], [address] PT Coag (PPP) [Time] 20.9 s High 11.7-14.9 [facility] Comment on above: Performed By: #### L 100.0100, L501.4020, L300.3900, L300.4310, L500.4050, L503.6005 ####[facility] [address] [place], [address] Urinalysis, Completeon 12-30 BACTERIA 2+ /hpf Normal None Seen [facility] Comment on above: Order Comment: COLOR OF URINE MAY AFFECT DIPSTICK RESULTS.CATHETER SPECIMEN Performed By: #### L 400.0001, M100.2200, M100.678 ####[facility] [address] [place], [address] Mucus Ql (Urine sed) 2+ /hpf Normal [facility] Comment on above: Order Comment: COLOR OF URINE MAY AFFECT DIPSTICK RESULTS.CATHETER SPECIMEN Performed By: #### L 400.0001, M100.2200, M100.678 ####[facility] [address] [place], [address] RBC 0-5 SEEN Normal 0-5 [facility] Comment on above: Order Comment: COLOR OF URINE MAY AFFECT DIPSTICK RESULTS.CATHETER SPECIMEN Performed By: #### L 400.0001, M100.2200, M100.678 ####[facility] [address] [place], [address] YEAST 2+ /hpf Normal None Seen [facility] Comment on above: Order Comment: COLOR OF URINE MAY AFFECT DIPSTICK RESULTS.CATHETER SPECIMEN Performed By: #### L 400.0001, M100.2200, M100.678 ####[facility] [address] [place], [address] WBC 25-50 SEEN Normal 0-5 [facility] Comment on above: Order Comment: COLOR OF URINE MAY AFFECT DIPSTICK RESULTS.CATHETER SPECIMEN Performed By: #### L 400.0001, M100.2200, .8 ####[facility] [address] [place], [address] BILIRUBIN URINE Negative Normal Negative [facility] Comment on above: Order Comment: COLOR OF URINE MAY AFFECT DIPSTICK RESULTS.CATHETER SPECIMEN Performed By: #### L 400.0001, 00.0, .8 ####[facility] [address] [place], [address] Clarity (U) Clear Normal Clear [facility] Comment on above: Order Comment: COLOR OF URINE MAY AFFECT DIPSTICK RESULTS.CATHETER SPECIMEN Performed By: #### L 400.0001, 00.0, .8 ####[facility] [address] [place], [address] Color (U) Rita Normal Yellow [facility] Comment on above: Order Comment: COLOR OF URINE MAY AFFECT DIPSTICK RESULTS.CATHETER SPECIMEN Performed By: #### L 400.0001, M100.2200, .8 ####[facility] [address] [place], [address] GLUCOSE, UR Normal Normal Normal [facility] Comment on above: Order Comment: COLOR OF URINE MAY AFFECT DIPSTICK RESULTS.CATHETER SPECIMEN Performed By: #### L 400.0001, M100.2200, .678 ####[facility] [address] [place], [address] KETONE UR Negative Normal Negative [facility] Comment on above: Order Comment: COLOR OF URINE MAY AFFECT DIPSTICK RESULTS.CATHETER SPECIMEN Performed By: #### L 400.0001, M100.2200, .678 ####[facility] [address] [place], [address] LEUK ESTERASE 100 /ul Abnormal Negative [facility] Comment on above: Order Comment: COLOR OF URINE MAY AFFECT DIPSTICK RESULTS.CATHETER SPECIMEN Performed By: #### L 400.0001, 00.0, 8 ####[facility] [address] [place], [address] Nitrite Ql (U) Negative Normal Negative [facility] Comment on above: Order Comment: COLOR OF URINE MAY AFFECT DIPSTICK RESULTS.CATHETER SPECIMEN Performed By: #### L 400.0001, .2199, 8 ####[facility] [address] [place], [address] OCCULT BLOOD-UR Negative Normal Negative [facility] Comment on above: Order Comment: COLOR OF URINE MAY AFFECT DIPSTICK RESULTS.CATHETER SPECIMEN Performed By: #### L 400.0001, .2199, 8 ####[facility] [address] [place], [address] pH UR 6.0 Normal 5.0 - 8.0 [facility] Comment on above: Order Comment: COLOR OF URINE MAY AFFECT DIPSTICK RESULTS.CATHETER SPECIMEN Performed By: #### L 400.0001, 00.0, 8 ####[facility] [address] [place], [address] PROT DIPSTX 30 mg/dl Abnormal Negative [facility] Comment on above: Order Comment: COLOR OF URINE MAY AFFECT DIPSTICK RESULTS.CATHETER SPECIMEN Performed By: #### L 400.0001, 00.0, 8 ####[facility] [address] [place], [address] SP.GR. DIPSTX 1.020 Normal 1.002-1.030 [facility] Comment on above: Order Comment: COLOR OF URINE MAY AFFECT DIPSTICK RESULTS.CATHETER SPECIMEN Performed By: #### L 400.0001, M100.2200, M100.678 ####[facility] [address] [place], [address] UROBILI Normal Normal Normal [facility] Comment on above: Order Comment: COLOR OF URINE MAY AFFECT DIPSTICK RESULTS.CATHETER SPECIMEN Performed By: #### L 400.0001, M100.2200, M1.678 ####[facility] [address] [place], [address] EPI,SQUAMOUS 0 SEEN Normal 5-10 [facility] Comment on above: Order Comment: COLOR OF URINE MAY AFFECT DIPSTICK RESULTS.CATHETER SPECIMEN Performed By: #### L 400.0001, M100.2200, M1.678 ####[facility] [address] [place], [address] Vancomycin, Trough Levelon 0 12-31-2023 VANCO, TROUGH 18.5 ug/mL High 5.0-15.0 [facility] Comment on above: Order Comment: 514.1 0500 Result Comment: VANC OMYCIN STANDARED DRUG THERAPY TROUGH LEVEL: 5.0 - 15.0 mg/LVANCOMYCIN HIGH INTENSITY THERAPY TROUGH LEVEL: 15.0 - 20.0 mg/LHigh Intensity therapy recommended for serious lifethreatening infections include:- Prvfygofxs-Yvxsjsffqqib-Yblvbbabx (Ventilator/Healtcare Associated)-SepsisPLEASE CONTACT PHARMACY SERVICES (#9439) FOR INTERPRETATIONOF RESULTS. Performed By: #### L 501.6710, L500.4050, L501.8820, L100.0100 ####[facility] [address] [place], [address] Vitamin B12on 12-31-2023 Cobalamin (Vitamin B12) [Mass/Vol] 1036 pg/mL High 211-911 [facility] Comment on above: Performed By: #### L 503.0105 ####[facility] [address] [place], [address] CBC W/Diff, Automatedon 09-2 0-4 Absolute Lymph 2.21 X10 3/uL Normal 0.83-4.51 [facility] Comment on above: Order Comment: 514-1 Performed By: #### L 500.4050, L100.0100, L501.8820, L501.6710 ####[facility] [address] [place], [address] Absolute Neut 4.9 X10 3/uL Normal 2.0-7.7 [facility] Comment on above: Order Comment: 514-1 Performed By: #### L 500.4050, L100.0100, L501.8820, L501.6710 ####[facility] [address] [place], [address] Basophils/100 WBC (Bld) 0.9 % Normal 0-1 [facility] Comment on above: Order Comment: 514-1 Performed By: #### L 500.4050, L100.0100, L501.8820, L501.6710 ####[facility] [address], [address] Eosinophils/100 WBC (Bld) 2.1 % Normal 0-5 [facility] Comment on above: Order Comment: 514-1 Performed By: #### L 500.4050, L100.0100, L501.8820, L501.6710 ####[facility] [address] [place], [address] Erythrocyte distribution width (RBC) [Ratio] 17.6 % High 11.6-14.6 [facility] Comment on above: Order Comment: 514-1 Performed By: #### L 500.4050, L100.0100, L501.8820, L501.6710 ####[facility] [address] [place], [address] Hematocrit (Bld) [Volume fraction] 32.8 % Low 37-47 [facility] Comment on above: Order Comment: 514-1 Performed By: #### L 500.4050, L100.0100, L501.8820, L501.6710 ####[facility] [address] [place], [address] Hemoglobin (Bld) [Mass/Vol] 10.0 g/dL Low 12.0-15.0 [facility] Comment on above: Order Comment: 514-1 Performed By: #### L 500.4050, L100.0100, L501.8820, L501.6710 ####[facility] [address] [place], [address] IG% 0.500 Normal 0.0-0.9 [facility] Comment on above: Order Comment: 514-1 Result Comment: IG% - Immature Granulocytes (promyelocytes, myelocytes andmetamyelocytes) > 1% indicates that a LEFT SHIFT is Present. Performed By: #### L 500.4050, L100.0100, L501.8820, L501.6710 ####[facility] [address] [place], [address] Lymphocytes/100 WBC (Bld) 27.4 % Normal 19-41 [facility] Comment on above: Order Comment: 514-1 Performed By: #### L 500.4050, L100.0100, L501.8820, L501.6710 ####[facility] [address] [place], [address] MCH (RBC) [Entitic mass] 25.9 pg Low 27.0-32.0 [facility] Comment on above: Order Comment: 514-1 Performed By: #### L 500.4050, L100.0100, L501.8820, L501.6710 ####[facility] [address] [place], [address] MCHC (RBC) [Mass/Vol] 30.5 g/dL Low 32-36 [facility] Comment on above: Order Comment: 514-1 Performed By: #### L 500.4050, L100.0100, L501.8820, L501.6710 ####[facility] [address] [place], [address] MCV (RBC) [Entitic vol] 85.0 fL Normal 81-99 [facility] Comment on above: Order Comment: 514-1 Performed By: #### L 500.4050, L100.0100, L501.8820, L501.6710 ####[facility] [address] [place], [address] Monocytes/100 WBC (Bld) 8.1 % Normal 0-10 [facility] Comment on above: Order Comment: 514-1 Performed By: #### L 500.4050, L100.0100, L501.8820, L501.6710 ####[facility] [address] [place], [address] Neutrophils/100 WBC (Bld) 61.0 % Normal 47-70 [facility] Comment on above: Order Comment: 514-1 Performed By: #### L 500.4050, L100.0100, L501.8820, L501.6710 ####[facility] [address] [place], [address] Nucleated RBC (Bld) [#/Vol] 0 10*3/uL Normal 0-5 [facility] Comment on above: Order Comment: 514-1 Performed By: #### L 500.4050, L100.0100, L501.8820, L501.6710 ####[facility] [address] [place], [address] Platelet mean volume (Bld) [Entitic vol] 9.9 fL Normal 6.2-12.0 [facility] Comment on above: Order Comment: 514-1 Performed By: #### L 500.4050, L100.0100, L501.8820, L501.6710 ####[facility] [address] [place], [address] Platelets (Bld) [#/Vol] 245 10*3/uL Normal 150-450 [facility] Comment on above: Order Comment: 514-1 Performed By: #### L 500.4050, L100.0100, L501.8820, L501.6710 ####[facility] [address] [place], [address] RBC (Bld) [#/Vol] 3.86 10*6/uL Low 4.2-5.4 [facility] Comment on above: Order Comment: 514-1 Performed By: #### L 500.4050, L100.0100, L501.8820, L501.6710 ####[facility] [address] [place], [address] RDW SD 54.4 fl High 35.1-43.9 [facility] Comment on above: Order Comment: 514-1 Performed By: #### L 500.4050, L100.0100, L501.8820, L501.6710 ####[facility] [address] [place], [address] WBC (Bld) [#/Vol] 8.1 10*3/uL Normal 4.4-11.0 [facility] Comment on above: Order Comment: 514-1 Performed By: #### L 500.4050, L100.0100, L501.8820, L501.6710 ####[facility] [address] [place], [address] CRPon 12-28-2023 C-REACTIVE PROT 39.80 mg/L High 0.0-3.0 [facility] Comment on above: Order Comment: 514-1 Result Comment: C-Re active Protein (CRP) provides useful information for thediagnosis, therapy and monitoring of inflammatory processesand associated diseases. For the evaluation of Relative Riskfor Cardiovascular Disease, a High Sensitivity CRP (HSCRP)should be ordered. Performed By: #### L 500.4050, L100.0100, L501.8820, L501.6710 ####[facility] [address] [place], [address] Comprehensive Metabolic Prof ilon 12-28-2023 Albumin [Mass/Vol] 1.4 g/dL Low 3.2-5.0 [facility] Comment on above: Order Comment: 514-1 Performed By: #### L 500.4050, L100.0100, L501.8820, L501.6710 ####[facility] [address] [place], [address] Albumin/Globulin [Mass ratio] 0.4 {ratio} Low 0.9-2.4 [facility] Comment on above: Order Comment: 514-1 Performed By: #### L 500.4050, L100.0100, L501.8820, L501.6710 ####[facility] [address] [place], [address] ALK P 140 U/L High 45-117 [facility] Comment on above: Order Comment: 514-1 Performed By: #### L 500.4050, L100.0100, L501.8820, L501.6710 ####[facility] [address] [place], [address] ALT [Catalytic activity/Vol] 13 U/L Normal 13-56 [facility] Comment on above: Order Comment: 514-1 Performed By: #### L 500.4050, L100.0100, L501.8820, L501.6710 ####[facility] [address] [place], [address] AST [Catalytic activity/Vol] 29 U/L Normal 15-37 [facility] Comment on above: Order Comment: 514-1 Result Comment: Slig ht Hemolysis, Result may be falsely increased. Performed By: #### L 500.4050, L100.0100, L501.8820, L501.6710 ####[facility] [address] [place], [address] Bilirubin [Mass/Vol] 0.30 mg/dL Normal 0.20-1.00 [facility] Comment on above: Order Comment: 514-1 Result Comment: For patients on eltrombopag therapy, use of Dimension [place] TBIL is not recommended. Performed By: #### L 500.4050, L100.0100, L501.8820, L501.6710 ####[facility] [address] [place], [address] BUN/CRE 31.4 RATIO High 10-20 [facility] Comment on above: Order Comment: 514-1 Performed By: #### L 500.4050, L100.0100, L501.8820, L501.6710 ####[facility] [address] [place], [address] CA,Total 7.5 mg/dL Low 8.5-10.1 [facility] Comment on above: Order Comment: 514-1 Performed By: #### L 500.4050, L100.0100, L501.8820, L501.6710 ####[facility] [address] [place], [address] Chloride [Moles/Vol] 105 mmol/L Normal 98-107 [facility] Comment on above: Order Comment: 514-1 Performed By: #### L 500.4050, L100.0100, L501.8820, L501.6710 ####[facility] [address] [place], [address] CO2 [Moles/Vol] 28.0 mmol/L Normal 21.0-32.0 [facility] Comment on above: Order Comment: 514-1 Performed By: #### L 500.4050, L100.0100, L501.8820, L501.6710 ####[facility] [address] [place], [address] Creatinine [Mass/Vol] 0.57 mg/dL Normal 0.55-1.02 [facility] Comment on above: Order Comment: 514-1 Result Comment: The validity of the calculated GFR GFRAA in patients over70 years has not been determined. Clinical correlation isessential. Performed By: #### L 500.4050, L100.0100, L501.8820, L501.6710 ####[facility] [address] [place], [address] EST GFR - AA 132 mL/min Normal >60 [facility] Comment on above: Order Comment: 514-1 Result Comment: Afri can [place] GFR Calc Performed By: #### L 500.4050, L100.0100, L501.8820, L501.6710 ####[facility] [address] [place], [address] GAP 7 Normal 5-15 [facility] Comment on above: Order Comment: 514-1 Performed By: #### L 500.4050, L100.0100, L501.8820, L501.6710 ####[facility] [address] [place], [address] GFR/1.73 sq M.predicted among non-blacks MDRD (S/P/Bld) [Vol rate/Area] 109 mL/min/{1.73_m2} Normal >60 [facility] Comment on above: Order Comment: 514-1 Result Comment: Non- GFR Calc Performed By: #### L 500.4050, L100.0100, L501.8820, L501.6710 ####[facility] [address] [place], [address] Globulin (S) [Mass/Vol] 3.3 g/dL Normal 2.2-4.2 [facility] Comment on above: Order Comment: 514-1 Performed By: #### L 500.4050, L100.0100, L501.8820, L501.6710 ####[facility] [address] [place], [address] Glucose [Mass/Vol] 106 mg/dL Normal 74-106 [facility] Comment on above: Order Comment: 514- Result Comment: Fast ing Glucose result from 100 to 125 mg/dLsuggests IMPAIRED HOMEOSTASIS per A.D.A. criteria. Performed By: #### L 500.4050, L100.0100, L501.8820, L501.6710 ####[facility] [address] [place], [address] Potassium [Moles/Vol] 2.7 mmol/L Invalid Interpretation Code 3.5-5.1 [facility] Comment on above: Order Comment: 514-1 Result Comment: Slig ht Hemolysis, Result may be falsely increased.CriticalResult(s) Called at: 08:46:14 12/28/2023 by: Jeri Duong. Results read back by same. Performed By: #### L 500.4050, L100.0100, L501.8820, L501.6710 ####[facility] [address] [place], [address] Sodium [Moles/Vol] 140 mmol/L Normal 136-145 [facility] Comment on above: Order Comment: 514-1 Performed By: #### L 500.4050, L100.0100, L501.8820, L501.6710 ####[facility] [address] [place], [address] T PROT 4.7 g/dL Low 6.4-8.2 [facility] Comment on above: Order Comment: 514-1 Performed By: #### L 500.4050, L100.0100, L501.8820, L501.6710 ####[facility] [address] [place], [address] Urea nitrogen [Mass/Vol] 18 mg/dL Normal 7-18 [facility] Comment on above: Order Comment: 514-1 Performed By: #### L 500.4050, L100.0100, L501.8820, L501.6710 ####[facility] [address] [place], [address] Vancomycin, Trough Levelon 0 - VANCO, TROUGH 12.8 ug/mL Normal 5.0-15.0 [facility] Comment on above: Order Comment: 514-1 0730 Result Comment: VANC OMYCIN STANDARED DRUG THERAPY TROUGH LEVEL: 5.0 - 15.0 mg/LVANCOMYCIN HIGH INTENSITY THERAPY TROUGH LEVEL: 15.0 - 20.0 mg/LHigh Intensity therapy recommended for serious lifethreatening infections include:- Rvbikunzhx-Nceomnryrerq-Hpdhvrluq (Ventilator/Healtcare Associated)-SepsisPLEASE CONTACT PHARMACY SERVICES (#[id number]) FOR INTERPRETATIONOF RESULTS. Performed By: #### L 500.4050, L100.0100, L501.8820, L501.6710 ####[facility] [address] [place], [address] CBC W/Diff, Automatedon - Absolute Lymph 1.74 X10 3/uL Normal 0.83-4.51 [facility] Comment on above: Order Comment: 514.1 Performed By: #### L 500.4050, L501.8820, L100.0100, L501.6710 ####[facility] [address] [place], [address] Absolute Neut 5.8 X10 3/uL Normal 2.0-7.7 [facility] Comment on above: Order Comment: 514.1 Performed By: #### L 500.4050, L501.8820, L100.0100, L501.6710 ####[facility] [address] [place], [address] Basophils/100 WBC (Bld) 1.0 % Normal 0-1 [facility] Comment on above: Order Comment: 514.1 Performed By: #### L 500.4050, L501.8820, L100.0100, L501.6710 ####[facility] [address] [place], [address] Eosinophils/100 WBC (Bld) 1.4 % Normal 0-5 [facility] Comment on above: Order Comment: 514.1 Performed By: #### L 500.4050, L501.8820, L100.0100, L501.6710 ####[facility] [address] [place], [address] Erythrocyte distribution width (RBC) [Ratio] 17.6 % High 11.6-14.6 [facility] Comment on above: Order Comment: 514.1 Performed By: #### L 500.4050, L501.8820, L100.0100, L501.6710 ####[facility] [address] [place], [address] Hematocrit (Bld) [Volume fraction] 36.1 % Low 37-47 [facility] Comment on above: Order Comment: 514.1 Performed By: #### L 500.4050, L501.8820, L100.0100, L501.6710 ####[facility] [address] [place], [address] Hemoglobin (Bld) [Mass/Vol] 10.5 g/dL Low 12.0-15.0 [facility] Comment on above: Order Comment: 514.1 Performed By: #### L 500.4050, L501.8820, L100.0100, L501.6710 ####[facility] [address] [place], [address] IG% 0.400 Normal 0.0-0.9 [facility] Comment on above: Order Comment: 514.1 Result Comment: IG% - Immature Granulocytes (promyelocytes, myelocytes andmetamyelocytes) > 1% indicates that a LEFT SHIFT is Present. Performed By: #### L 500.4050, L501.8820, L100.0100, L501.6710 ####[facility] [address] [place], [address] Lymphocytes/100 WBC (Bld) 20.8 % Normal 19-41 [facility] Comment on above: Order Comment: 514.1 Performed By: #### L 500.4050, L501.8820, L100.0100, L501.6710 ####[facility] [address] [place], [address] MCH (RBC) [Entitic mass] 25.9 pg Low 27.0-32.0 [facility] Comment on above: Order Comment: 514.1 Performed By: #### L 500.4050, L501.8820, L100.0100, L501.6710 ####[facility] [address] [place], [address] MCHC (RBC) [Mass/Vol] 29.1 g/dL Low 32-36 [facility] Comment on above: Order Comment: 514.1 Performed By: #### L 500.4050, L501.8820, L100.0100, L501.6710 ####[facility] [address] [place], [address] MCV (RBC) [Entitic vol] 88.9 fL Normal 81-99 [facility] Comment on above: Order Comment: 514.1 Performed By: #### L 500.4050, L501.8820, L100.0100, L501.6710 ####[facility] [address] [place], [address] Monocytes/100 WBC (Bld) 6.9 % Normal 0-10 [facility] Comment on above: Order Comment: 514.1 Performed By: #### L 500.4050, L501.8820, L100.0100, L501.6710 ####[facility] [address] [place], [address] Neutrophils/100 WBC (Bld) 69.5 % Normal 47-70 [facility] Comment on above: Order Comment: 514.1 Performed By: #### L 500.4050, L501.8820, L100.0100, L501.6710 ####[facility] [address] [place], [address] Nucleated RBC (Bld) [#/Vol] 0 10*3/uL Normal 0-5 [facility] Comment on above: Order Comment: 514.1 Performed By: #### L 500.4050, L501.8820, L100.0100, L501.6710 ####[facility] [address] [place], [address] Platelet mean volume (Bld) [Entitic vol] 10.0 fL Normal 6.2-12.0 [facility] Comment on above: Order Comment: 514.1 Performed By: #### L 500.4050, L501.8820, L100.0100, L501.6710 ####[facility] [address] [place], [address] Platelets (Bld) [#/Vol] 195 10*3/uL Normal 150-450 [facility] Comment on above: Order Comment: 514.1 Performed By: #### L 500.4050, L501.8820, L100.0100, L501.6710 ####[facility] [address] [place], [address] RBC (Bld) [#/Vol] 4.06 10*6/uL Low 4.2-5.4 [facility] Comment on above: Order Comment: 514.1 Performed By: #### L 500.4050, L501.8820, L100.0100, L501.6710 ####[facility] [address] [place], [address] RDW SD 57.0 fl High 35.1-43.9 [facility] Comment on above: Order Comment: 514.1 Performed By: #### L 500.4050, L501.8820, L100.0100, L501.6710 ####[facility] [address] [place], [address] WBC (Bld) [#/Vol] 8.4 10*3/uL Normal 4.4-11.0 [facility] Comment on above: Order Comment: 514.1 Performed By: #### L 500.4050, L501.8820, L100.0100, L501.6710 ####[facility] [address] [place], [address] CRPon 12-25-2023 C-REACTIVE PROT 80.80 mg/L High 0.0-3.0 [facility] Comment on above: Order Comment: 514.1 Result Comment: C-Re active Protein (CRP) provides useful information for thediagnosis, therapy and monitoring of inflammatory processesand associated diseases. For the evaluation of Relative Riskfor Cardiovascular Disease, a High Sensitivity CRP (HSCRP)should be ordered. Performed By: #### L 500.4050, L501.8820, L100.0100, L501.6710 ####[facility] [address] [place], [address] Comprehensive Metabolic Prof ilon 12-25-2023 Albumin [Mass/Vol] 1.2 g/dL Low 3.2-5.0 [facility] Comment on above: Order Comment: 514.1 Performed By: #### L 500.4050, L501.8820, L100.0100, L501.6710 ####[facility] [address] [place], [address] Albumin/Globulin [Mass ratio] 0.3 {ratio} Low 0.9-2.4 [facility] Comment on above: Order Comment: 514.1 Performed By: #### L 500.4050, L501.8820, L100.0100, L501.6710 ####[facility] [address] [place], [address] ALK P 144 U/L High 45-117 [facility] Comment on above: Order Comment: 514.1 Performed By: #### L 500.4050, L501.8820, L100.0100, L501.6710 ####[facility] [address] [place], [address] ALT [Catalytic activity/Vol] 12 U/L Low 13-56 [facility] Comment on above: Order Comment: 514.1 Performed By: #### L 500.4050, L501.8820, L100.0100, L501.6710 ####[facility] [address] [place], [address] AST [Catalytic activity/Vol] 26 U/L Normal 15-37 [facility] Comment on above: Order Comment: 514.1 Performed By: #### L 500.4050, L501.8820, L100.0100, L501.6710 ####[facility] [address] [place], [address] Bilirubin [Mass/Vol] 0.30 mg/dL Normal 0.20-1.00 [facility] Comment on above: Order Comment: 514.1 Result Comment: For patients on eltrombopag therapy, use of Dimension [place] TBIL is not recommended. Performed By: #### L 500.4050, L501.8820, L100.0100, L501.6710 ####[facility] [address] [place], [address] BUN/CRE 33.3 RATIO High 10-20 [facility] Comment on above: Order Comment: 514.1 Performed By: #### L 500.4050, L501.8820, L100.0100, L501.6710 ####[facility] [address] [place], [address] CA,Total 7.3 mg/dL Low 8.5-10.1 [facility] Comment on above: Order Comment: 514.1 Performed By: #### L 500.4050, L501.8820, L100.0100, L501.6710 ####[facility] [address] [place], [address] Chloride [Moles/Vol] 104 mmol/L Normal 98-107 [facility] Comment on above: Order Comment: 514.1 Performed By: #### L 500.4050, L501.8820, L100.0100, L501.6710 ####[facility] [address] [place], [address] CO2 [Moles/Vol] 26.0 mmol/L Normal 21.0-32.0 [facility] Comment on above: Order Comment: 514.1 Performed By: #### L 500.4050, L501.8820, L100.0100, L501.6710 ####[facility] [address] [place], [address] Creatinine [Mass/Vol] 0.54 mg/dL Low 0.55-1.02 [facility] Comment on above: Order Comment: 514.1 Result Comment: The validity of the calculated GFR GFRAA in patients over70 years has not been determined. Clinical correlation isessential. Performed By: #### L 500.4050, L501.8820, L100.0100, L501.6710 ####[facility] [address] [place], [address] EST GFR - AA 141 mL/min Normal >60 [facility] Comment on above: Order Comment: 514.1 Result Comment: Afri can [place] GFR Calc Performed By: #### L 500.4050, L501.8820, L100.0100, L501.6710 ####[facility] [address] [place], [address] GAP 7 Normal 5-15 [facility] Comment on above: Order Comment: 514.1 Performed By: #### L 500.4050, L501.8820, L100.0100, L501.6710 ####[facility] [address] [place], [address] GFR/1.73 sq M.predicted among non-blacks MDRD (S/P/Bld) [Vol rate/Area] 117 mL/min/{1.73_m2} Normal >60 [facility] Comment on above: Order Comment: 514.1 Result Comment: Non- GFR Calc Performed By: #### L 500.4050, L501.8820, L100.0100, L501.6710 ####[facility] [address] [place], [address] Globulin (S) [Mass/Vol] 3.5 g/dL Normal 2.2-4.2 [facility] Comment on above: Order Comment: 514.1 Performed By: #### L 500.4050, L501.8820, L100.0100, L501.6710 ####[facility] [address] [place], [address] Glucose [Mass/Vol] 67 mg/dL Low 74-106 [facility] Comment on above: Order Comment: 514.1 Performed By: #### L 500.4050, L501.8820, L100.0100, L501.6710 ####[facility] [address] [place], [address] Potassium [Moles/Vol] 3.1 mmol/L Low 3.5-5.1 [facility] Comment on above: Order Comment: 514.1 Performed By: #### L 500.4050, L501.8820, L100.0100, L501.6710 ####[facility] [address] [place], [address] Sodium [Moles/Vol] 137 mmol/L Normal 136-145 [facility] Comment on above: Order Comment: 514.1 Performed By: #### L 500.4050, L501.8820, L100.0100, L501.6710 ####[facility] [address] [place], [address] T PROT 4.7 g/dL Low 6.4-8.2 [facility] Comment on above: Order Comment: 514.1 Performed By: #### L 500.4050, L501.8820, L100.0100, L501.6710 ####[facility] [address] [place], [address] Urea nitrogen [Mass/Vol] 18 mg/dL Normal 7-18 [facility] Comment on above: Order Comment: 514.1 Performed By: #### L 500.4050, L501.8820, L100.0100, L501.6710 ####[facility] [address] [place], [address] Vancomycin, Trough Levelon 0 - VANCO, TROUGH 19.3 ug/mL High 5.0-15.0 [facility] Comment on above: Order Comment: 514.1 0500 Result Comment: VANC OMYCIN STANDARED DRUG THERAPY TROUGH LEVEL: 5.0 - 15.0 mg/LVANCOMYCIN HIGH INTENSITY THERAPY TROUGH LEVEL: 15.0 - 20.0 mg/LHigh Intensity therapy recommended for serious lifethreatening infections include:- Pqtwyxuazm-Gfyupczdvfxe-Qtovryuhl (Ventilator/Healtcare Associated)-SepsisPLEASE CONTACT PHARMACY SERVICES (#4506) FOR INTERPRETATIONOF RESULTS. Performed By: #### L 500.4050, L501.8820, L100.0100, L501.6710 ####[facility] [address] [place], [address] Basic Metabolic Profile (BMP )on 12-24-2023 BUN/CRE 28.6 RATIO High 10-20 [facility] Comment on above: Order Comment: 514-1 Performed By: #### L 500.2500 ####[facility] [address] [place], [address] CA,Total 7.4 mg/dL Low 8.5-10.1 [facility] Comment on above: Order Comment: 514-1 Performed By: #### L 500.2500 ####[facility] [address] [place], [address] Chloride [Moles/Vol] 104 mmol/L Normal 98-107 [facility] Comment on above: Order Comment: 514-1 Performed By: #### L 500.2500 ####[facility] [address] [place], [address] CO2 [Moles/Vol] 27.0 mmol/L Normal 21.0-32.0 [facility] Comment on above: Order Comment: 514-1 Performed By: #### L 500.2500 ####[facility] [address] [place], [address] Creatinine [Mass/Vol] 0.56 mg/dL Normal 0.55-1.02 [facility] Comment on above: Order Comment: 514-1 Result Comment: The validity of the calculated GFR GFRAA in patients over70 years has not been determined. Clinical correlation isessential. Performed By: #### L 500.2500 ####[facility] [address] [place], [address] EST GFR - AA 136 mL/min Normal >60 [facility] Comment on above: Order Comment: 514-1 Result Comment: Afri can [place] GFR Calc Performed By: #### L 500.2500 ####[facility] [address] [place], [address] GAP 6 Normal 5-15 [facility] Comment on above: Order Comment: 514-1 Performed By: #### L 500.2500 ####[facility] [address] [place], [address] GFR/1.73 sq M.predicted among non-blacks MDRD (S/P/Bld) [Vol rate/Area] 112 mL/min/{1.73_m2} Normal >60 [facility] Comment on above: Order Comment: 514- Result Comment: Non- GFR Calc Performed By: #### L 500.2500 ####[facility] [address] [place], [address] Glucose [Mass/Vol] 82 mg/dL Normal 74-106 [facility] Comment on above: Order Comment: 514-1 Performed By: #### L 500.2500 ####[facility] [address] [place], [address] Potassium [Moles/Vol] 3.0 mmol/L Low 3.5-5.1 [facility] Comment on above: Order Comment: 514-1 Result Comment: Slig ht Hemolysis, Result may be falsely increased. Performed By: #### L 500.2500 ####[facility] [address] [place], [address] Sodium [Moles/Vol] 137 mmol/L Normal 136-145 [facility] Comment on above: Order Comment: 514-1 Performed By: #### L 500.2500 ####[facility] [address] [place], [address] Urea nitrogen [Mass/Vol] 16 mg/dL Normal 7-18 [facility] Comment on above: Order Comment: 514-1 Performed By: #### L 500.2500 ####[facility] [address] [place], [address] Vancomycin, Trough Levelon 0 12-19-2023 VANCO, TROUGH 16.8 ug/mL High 5.0-15.0 [facility] Comment on above: Order Comment: 514-1 0800 Result Comment: VANC OMYCIN STANDARED DRUG THERAPY TROUGH LEVEL: 5.0 - 15.0 mg/LVANCOMYCIN HIGH INTENSITY THERAPY TROUGH LEVEL: 15.0 - 20.0 mg/LHigh Intensity therapy recommended for serious lifethreatening infections include:- Thuodjsutm-Tnttywyflnrv-Mrutijpii (Ventilator/Healtcare Associated)-SepsisPLEASE CONTACT PHARMACY SERVICES (#7518) FOR INTERPRETATIONOF RESULTS. Performed By: #### L 501.8820 ####[facility] [address] [place], [address] CBC W/Diff, Automatedon 12-08 Absolute Lymph 2.08 X10 3/uL Normal 0.83-4.51 [facility] Comment on above: Order Comment: 514-1 Performed By: #### L 501.8820, L100.0100, L500.4050, L501.6710 ####[facility] [address] [place], [address] Absolute Neut 6.8 X10 3/uL Normal 2.0-7.7 [facility] Comment on above: Order Comment: 514-1 Performed By: #### L 501.8820, L100.0100, L500.4050, L501.6710 ####[facility] [address] [place], [address] Basophils/100 WBC (Bld) 0.5 % Normal 0-1 [facility] Comment on above: Order Comment: 514-1 Performed By: #### L 501.8820, L100.0100, L500.4050, L501.6710 ####[facility] [address] [place], [address] Eosinophils/100 WBC (Bld) 1.1 % Normal 0-5 [facility] Comment on above: Order Comment: 514-1 Performed By: #### L 501.8820, L100.0100, L500.4050, L501.6710 ####[facility] [address] [place], [address] Erythrocyte distribution width (RBC) [Ratio] 16.9 % High 11.6-14.6 [facility] Comment on above: Order Comment: 514-1 Performed By: #### L 501.8820, L100.0100, L500.4050, L501.6710 ####[facility] [address] [place], [address] Hematocrit (Bld) [Volume fraction] 33.0 % Low 37-47 [facility] Comment on above: Order Comment: 514-1 Performed By: #### L 501.8820, L100.0100, L500.4050, L501.6710 ####[facility] [address] [place], [address] Hemoglobin (Bld) [Mass/Vol] 9.9 g/dL Low 12.0-15.0 [facility] Comment on above: Order Comment: 514-1 Performed By: #### L 501.8820, L100.0100, L500.4050, L501.6710 ####[facility] [address] [place], [address] IG% 0.600 Normal 0.0-0.9 [facility] Comment on above: Order Comment: 514-1 Result Comment: IG% - Immature Granulocytes (promyelocytes, myelocytes andmetamyelocytes) > 1% indicates that a LEFT SHIFT is Present. Performed By: #### L 501.8820, L100.0100, L500.4050, L501.6710 ####[facility] [address] [place], [address] Lymphocytes/100 WBC (Bld) 21.5 % Normal 19-41 [facility] Comment on above: Order Comment: 514-1 Performed By: #### L 501.8820, L100.0100, L500.4050, L501.6710 ####[facility] [address] [place], [address] MCH (RBC) [Entitic mass] 25.3 pg Low 27.0-32.0 [facility] Comment on above: Order Comment: 514-1 Performed By: #### L 501.8820, L100.0100, L500.4050, L501.6710 ####[facility] [address] [place], [address] MCHC (RBC) [Mass/Vol] 30.0 g/dL Low 32-36 [facility] Comment on above: Order Comment: 514-1 Performed By: #### L 501.8820, L100.0100, L500.4050, L501.6710 ####[facility] [address] [place], [address] MCV (RBC) [Entitic vol] 84.4 fL Normal 81-99 [facility] Comment on above: Order Comment: 514-1 Performed By: #### L 501.8820, L100.0100, L500.4050, L501.6710 ####[facility] [address] [place], [address] Monocytes/100 WBC (Bld) 6.1 % Normal 0-10 [facility] Comment on above: Order Comment: 514-1 Performed By: #### L 501.8820, L100.0100, L500.4050, L501.6710 ####[facility] [address] [place], [address] Neutrophils/100 WBC (Bld) 70.2 % High 47-70 [facility] Comment on above: Order Comment: 514-1 Performed By: #### L 501.8820, L100.0100, L500.4050, L501.6710 ####[facility] [address] [place], [address] Nucleated RBC (Bld) [#/Vol] 0 10*3/uL Normal 0-5 [facility] Comment on above: Order Comment: 514-1 Performed By: #### L 501.8820, L100.0100, L500.4050, L501.6710 ####[facility] [address] [place], [address] Platelet mean volume (Bld) [Entitic vol] 9.5 fL Normal 6.2-12.0 [facility] Comment on above: Order Comment: 514-1 Performed By: #### L 501.8820, L100.0100, L500.4050, L501.6710 ####[facility] [address] [place], [address] Platelets (Bld) [#/Vol] 236 10*3/uL Normal 150-450 [facility] Comment on above: Order Comment: 514-1 Performed By: #### L 501.8820, L100.0100, L500.4050, L501.6710 ####[facility] [address] [place], [address] RBC (Bld) [#/Vol] 3.91 10*6/uL Low 4.2-5.4 [facility] Comment on above: Order Comment: 514-1 Performed By: #### L 501.8820, L100.0100, L500.4050, L501.6710 ####[facility] [address] [place], [address] RDW SD 52.0 fl High 35.1-43.9 [facility] Comment on above: Order Comment: 514-1 Performed By: #### L 501.8820, L100.0100, L500.4050, L501.6710 ####[facility] [address] [place], [address] WBC (Bld) [#/Vol] 9.7 10*3/uL Normal 4.4-11.0 [facility] Comment on above: Order Comment: 514-1 Performed By: #### L 501.8820, L100.0100, L500.4050, L501.6710 ####[facility] [address] [place], [address] CRPon 12-18-2023 C-REACTIVE PROT 37.20 mg/L High 0.0-3.0 [facility] Comment on above: Order Comment: 514-1 Result Comment: C-Re active Protein (CRP) provides useful information for thediagnosis, therapy and monitoring of inflammatory processesand associated diseases. For the evaluation of Relative Riskfor Cardiovascular Disease, a High Sensitivity CRP (HSCRP)should be ordered. Performed By: #### L 501.8820, L100.0100, L500.4050, L501.6710 ####[facility] [address] [place], [address] Comprehensive Metabolic Prof ilon 12-18-2023 Albumin [Mass/Vol] 1.5 g/dL Low 3.2-5.0 [facility] Comment on above: Order Comment: 514-1 Performed By: #### L 501.8820, L100.0100, L500.4050, L501.6710 ####[facility] [address] [place], [address] Albumin/Globulin [Mass ratio] 0.4 {ratio} Low 0.9-2.4 [facility] Comment on above: Order Comment: 514-1 Performed By: #### L 501.8820, L100.0100, L500.4050, L501.6710 ####[facility] [address] [place], [address] ALK P 150 U/L High 45-117 [facility] Comment on above: Order Comment: 514-1 Performed By: #### L 501.8820, L100.0100, L500.4050, L501.6710 ####[facility] [address] [place], [address] ALT [Catalytic activity/Vol] 14 U/L Normal 13-56 [facility] Comment on above: Order Comment: 514-1 Performed By: #### L 501.8820, L100.0100, L500.4050, L501.6710 ####[facility] [address] [place], [address] AST [Catalytic activity/Vol] 22 U/L Normal 15-37 [facility] Comment on above: Order Comment: 514-1 Performed By: #### L 501.8820, L100.0100, L500.4050, L501.6710 ####[facility] [address] [place], [address] Bilirubin [Mass/Vol] 0.20 mg/dL Normal 0.20-1.00 [facility] Comment on above: Order Comment: 514-1 Result Comment: For patients on eltrombopag therapy, use of Dimension [place] TBIL is not recommended. Performed By: #### L 501.8820, L100.0100, L500.4050, L501.6710 ####[facility] [address] [place], [address] BUN/CRE 25.2 RATIO High 10-20 [facility] Comment on above: Order Comment: 514-1 Performed By: #### L 501.8820, L100.0100, L500.4050, L501.6710 ####[facility] [address] [place], [address] CA,Total 7.6 mg/dL Low 8.5-10.1 [facility] Comment on above: Order Comment: 514-1 Performed By: #### L 501.8820, L100.0100, L500.4050, L501.6710 ####[facility] [address] [place], [address] Chloride [Moles/Vol] 105 mmol/L Normal 98-107 [facility] Comment on above: Order Comment: 514-1 Performed By: #### L 501.8820, L100.0100, L500.4050, L501.6710 ####[facility] [address] [place], [address] CO2 [Moles/Vol] 28.0 mmol/L Normal 21.0-32.0 [facility] Comment on above: Order Comment: 514-1 Performed By: #### L 501.8820, L100.0100, L500.4050, L501.6710 ####[facility] [address] [place], [address] Creatinine [Mass/Vol] 0.56 mg/dL Normal 0.55-1.02 [facility] Comment on above: Order Comment: 514-1 Result Comment: The validity of the calculated GFR GFRAA in patients over70 years has not been determined. Clinical correlation isessential. Performed By: #### L 501.8820, L100.0100, L500.4050, L501.6710 ####[facility] [address] [place], [address] EST GFR - AA 137 mL/min Normal >60 [facility] Comment on above: Order Comment: 514-1 Result Comment: Afri can [place] GFR Calc Performed By: #### L 501.8820, L100.0100, L500.4050, L501.6710 ####[facility] [address] [place], [address] GAP 5 Normal 5-15 [facility] Comment on above: Order Comment: 514-1 Performed By: #### L 501.8820, L100.0100, L500.4050, L501.6710 ####[facility] [address] [place], [address] GFR/1.73 sq M.predicted among non-blacks MDRD (S/P/Bld) [Vol rate/Area] 113 mL/min/{1.73_m2} Normal >60 [facility] Comment on above: Order Comment: 514-1 Result Comment: Non- GFR Calc Performed By: #### L 501.8820, L100.0100, L500.4050, L501.6710 ####[facility] [address] [place], [address] Globulin (S) [Mass/Vol] 3.4 g/dL Normal 2.2-4.2 [facility] Comment on above: Order Comment: 514-1 Performed By: #### L 501.8820, L100.0100, L500.4050, L501.6710 ####[facility] [address] [place], [address] Glucose [Mass/Vol] 96 mg/dL Normal 74-106 [facility] Comment on above: Order Comment: 514-1 Performed By: #### L 501.8820, L100.0100, L500.4050, L501.6710 ####[facility] [address] [place], [address] Potassium [Moles/Vol] 2.8 mmol/L Low 3.5-5.1 [facility] Comment on above: Order Comment: 514-1 Performed By: #### L 501.8820, L100.0100, L500.4050, L501.6710 ####[facility] [address] [place], [address] Sodium [Moles/Vol] 138 mmol/L Normal 136-145 [facility] Comment on above: Order Comment: 514-1 Performed By: #### L 501.8820, L100.0100, L500.4050, L501.6710 ####[facility] [address] [place], [address] T PROT 4.9 g/dL Low 6.4-8.2 [facility] Comment on above: Order Comment: 514-1 Performed By: #### L 501.8820, L100.0100, L500.4050, L501.6710 ####[facility] [address] [place], [address] Urea nitrogen [Mass/Vol] 14 mg/dL Normal 7-18 [facility] Comment on above: Order Comment: 514-1 Performed By: #### L 501.8820, L100.0100, L500.4050, L501.6710 ####[facility] [address] [place], [address] Vancomycin, Trough Levelon 0 12-18-2023 VANCO, TROUGH 22.0 ug/mL High 5.0-15.0 [facility] Comment on above: Order Comment: 514-1 6730 Result Comment: VANC OMYCIN STANDARED DRUG THERAPY TROUGH LEVEL: 5.0 - 15.0 mg/LVANCOMYCIN HIGH INTENSITY THERAPY TROUGH LEVEL: 15.0 - 20.0 mg/LHigh Intensity therapy recommended for serious lifethreatening infections include:- Maljvbnyty-Kjljixqrxacc-Bwjjpxwgb (Ventilator/Healtcare Associated)-SepsisPLEASE CONTACT PHARMACY SERVICES (#1993) FOR INTERPRETATIONOF RESULTS. Performed By: #### L 501.8820, L100.0100, L500.4050, L501.6710 ####[facility] [address] [place], [address] Emergency Department Summary on 12-17-2023 Emergency Department Summary Normal [facility] Vancomycin, Random Levelon 0 12-12-2023 VANCO, RANDOM 15.9 ug/mL High 0.0-15.0 [facility] Comment on above: Order Comment: 514.1 Result Comment: VANC OMYCIN STANDARD DRUG THERAPY: CRITICAL VALUE IS > 15.0 mg/LVANCOMYCIN HIGH INTENSITY THERAPY: CRITICAL VALUE IS > 20.0 mg/LPLEASE CONTACT PHARMACY SERVICES (#3276) FOR INTERPRETATIONOF RESULTS. THIS RESULT DOES NOT REPRESENT A PEAK OR TROUGHLEVEL FOR THIS DRUG. Performed By: #### L 501.8850 ####[facility] [address] [place], [address] CBC W/Diff, Automatedon 09-0 3-2023 Absolute Lymph 2.12 X10 3/uL Normal 0.83-4.51 [facility] Comment on above: Order Comment: 514.1 Performed By: #### L 501.6710, L100.0100, L500.4050, L501.8820, L501.9520 ####[facility] [address] [place], [address] Absolute Neut 8.2 X10 3/uL High 2.0-7.7 [facility] Comment on above: Order Comment: 514.1 Performed By: #### L 501.6710, L100.0100, L500.4050, L501.8820, L501.9520 ####[facility] [address] [place], [address] Basophils/100 WBC (Bld) 0.4 % Normal 0-1 [facility] Comment on above: Order Comment: 514.1 Performed By: #### L 501.6710, L100.0100, L500.4050, L501.8820, L501.9520 ####[facility] [address] [place], [address] Eosinophils/100 WBC (Bld) 1.5 % Normal 0-5 [facility] Comment on above: Order Comment: 514.1 Performed By: #### L 501.6710, L100.0100, L500.4050, L501.8820, L501.9520 ####[facility] [address] [place], [address] Erythrocyte distribution width (RBC) [Ratio] 17.1 % High 11.6-14.6 [facility] Comment on above: Order Comment: 514.1 Performed By: #### L 501.6710, L100.0100, L500.4050, L501.8820, L501.9520 ####[facility] [address] [place], [address] Hematocrit (Bld) [Volume fraction] 33.2 % Low 37-47 [facility] Comment on above: Order Comment: 514.1 Performed By: #### L 501.6710, L100.0100, L500.4050, L501.8820, L501.9520 ####[facility] [address] [place], [address] Hemoglobin (Bld) [Mass/Vol] 10.0 g/dL Low 12.0-15.0 [facility] Comment on above: Order Comment: 514.1 Performed By: #### L 501.6710, L100.0100, L500.4050, L501.8820, L501.9520 ####[facility] [address] [place], [address] IG% 1.200 High 0.0-0.9 [facility] Comment on above: Order Comment: 514.1 Result Comment: IG% - Immature Granulocytes (promyelocytes, myelocytes andmetamyelocytes) > 1% indicates that a LEFT SHIFT is Present. Performed By: #### L 501.6710, L100.0100, L500.4050, L501.8820, L501.9520 ####[facility] [address] [place], [address] Lymphocytes/100 WBC (Bld) 18.8 % Low 19-41 [facility] Comment on above: Order Comment: 514.1 Performed By: #### L 501.6710, L100.0100, L500.4050, L501.8820, L501.9520 ####[facility] [address] [place], [address] MCH (RBC) [Entitic mass] 25.4 pg Low 27.0-32.0 [facility] Comment on above: Order Comment: 514.1 Performed By: #### L 501.6710, L100.0100, L500.4050, L501.8820, L501.9520 ####[facility] [address] [place], [address] MCHC (RBC) [Mass/Vol] 30.1 g/dL Low 32-36 [facility] Comment on above: Order Comment: 514.1 Performed By: #### L 501.6710, L100.0100, L500.4050, L501.8820, L501.9520 ####[facility] [address] [place], [address] MCV (RBC) [Entitic vol] 84.5 fL Normal 81-99 [facility] Comment on above: Order Comment: 514.1 Performed By: #### L 501.6710, L100.0100, L500.4050, L501.8820, L501.9520 ####[facility] [address] [place], [address] Monocytes/100 WBC (Bld) 5.9 % Normal 0-10 [facility] Comment on above: Order Comment: 514.1 Performed By: #### L 501.6710, L100.0100, L500.4050, L501.8820, L501.9520 ####[facility] [address] [place], [address] Neutrophils/100 WBC (Bld) 72.2 % High 47-70 [facility] Comment on above: Order Comment: 514.1 Performed By: #### L 501.6710, L100.0100, L500.4050, L501.8820, L501.9520 ####[facility] [address] [place], [address] Nucleated RBC (Bld) [#/Vol] 0 10*3/uL Normal 0-5 [facility] Comment on above: Order Comment: 514.1 Performed By: #### L 501.6710, L100.0100, L500.4050, L501.8820, L501.9520 ####[facility] [address] [place], [address] Platelet mean volume (Bld) [Entitic vol] 9.5 fL Normal 6.2-12.0 [facility] Comment on above: Order Comment: 514.1 Performed By: #### L 501.6710, L100.0100, L500.4050, L501.8820, L501.9520 ####[facility] [address] [place], [address] Platelets (Bld) [#/Vol] 254 10*3/uL Normal 150-450 [facility] Comment on above: Order Comment: 514.1 Performed By: #### L 501.6710, L100.0100, L500.4050, L501.8820, L501.9520 ####[facility] [address] [place], [address] RBC (Bld) [#/Vol] 3.93 10*6/uL Low 4.2-5.4 [facility] Comment on above: Order Comment: 514.1 Performed By: #### L 501.6710, L100.0100, L500.4050, L501.8820, L501.9520 ####[facility] [address] [place], [address] RDW SD 53.3 fl High 35.1-43.9 [facility] Comment on above: Order Comment: 514.1 Performed By: #### L 501.6710, L100.0100, L500.4050, L501.8820, L501.9520 ####[facility] [address] [place], [address] WBC (Bld) [#/Vol] 11.3 10*3/uL High 4.4-11.0 [facility] Comment on above: Order Comment: 514.1 Performed By: #### L 501.6710, L100.0100, L500.4050, L501.8820, L501.9520 ####[facility] [address] [place], [address] CRPon 12-11-2023 C-REACTIVE PROT 75.80 mg/L High 0.0-3.0 [facility] Comment on above: Order Comment: 514.1 Result Comment: C-Re active Protein (CRP) provides useful information for thediagnosis, therapy and monitoring of inflammatory processesand associated diseases. For the evaluation of Relative Riskfor Cardiovascular Disease, a High Sensitivity CRP (HSCRP)should be ordered. Performed By: #### L 501.6710, L100.0100, L500.4050, L501.8820, L501.9520 ####[facility] [address] [place], [address] Comprehensive Metabolic Prof ilon 12-11-2023 Albumin [Mass/Vol] 1.7 g/dL Low 3.2-5.0 [facility] Comment on above: Order Comment: 514.1 Performed By: #### L 501.6710, L100.0100, L500.4050, L501.8820, L501.9520 ####[facility] [address] [place], [address] Albumin/Globulin [Mass ratio] 0.4 {ratio} Low 0.9-2.4 [facility] Comment on above: Order Comment: 514.1 Performed By: #### L 501.6710, L100.0100, L500.4050, L501.8820, L501.9520 ####[facility] [address] [place], [address] ALK P 163 U/L High 45-117 [facility] Comment on above: Order Comment: 514.1 Performed By: #### L 501.6710, L100.0100, L500.4050, L501.8820, L501.9520 ####[facility] [address] [place], [address] ALT [Catalytic activity/Vol] 14 U/L Normal 13-56 [facility] Comment on above: Order Comment: 514.1 Performed By: #### L 501.6710, L100.0100, L500.4050, L501.8820, L501.9520 ####[facility] [address] [place], [address] AST [Catalytic activity/Vol] 21 U/L Normal 15-37 [facility] Comment on above: Order Comment: 514.1 Performed By: #### L 501.6710, L100.0100, L500.4050, L501.8820, L501.9520 ####[facility] [address] [place], [address] Bilirubin [Mass/Vol] 0.30 mg/dL Normal 0.20-1.00 [facility] Comment on above: Order Comment: 514.1 Result Comment: For patients on eltrombopag therapy, use of Dimension [place] TBIL is not recommended. Performed By: #### L 501.6710, L100.0100, L500.4050, L501.8820, L501.9520 ####[facility] [address] [place], [address] BUN/CRE 25.6 RATIO High 10-20 [facility] Comment on above: Order Comment: 514.1 Performed By: #### L 501.6710, L100.0100, L500.4050, L501.8820, L501.9520 ####[facility] [address] [place], [address] CA,Total 7.9 mg/dL Low 8.5-10.1 [facility] Comment on above: Order Comment: 514.1 Performed By: #### L 501.6710, L100.0100, L500.4050, L501.8820, L501.9520 ####[facility] [address] [place], [address] Chloride [Moles/Vol] 100 mmol/L Normal 98-107 [facility] Comment on above: Order Comment: 514.1 Performed By: #### L 501.6710, L100.0100, L500.4050, L501.8820, L501.9520 ####[facility] [address] [place], [address] CO2 [Moles/Vol] 28.0 mmol/L Normal 21.0-32.0 [facility] Comment on above: Order Comment: 514.1 Performed By: #### L 501.6710, L100.0100, L500.4050, L501.8820, L501.9520 ####[facility] [address] [place], [address] Creatinine [Mass/Vol] 0.62 mg/dL Normal 0.55-1.02 [facility] Comment on above: Order Comment: 514.1 Result Comment: The validity of the calculated GFR GFRAA in patients over70 years has not been determined. Clinical correlation isessential. Performed By: #### L 501.6710, L100.0100, L500.4050, L501.8820, L501.9520 ####[facility] [address] [place], [address] EST GFR - AA 119 mL/min Normal >60 [facility] Comment on above: Order Comment: 514.1 Result Comment: Afri can [place] GFR Calc Performed By: #### L 501.6710, L100.0100, L500.4050, L501.8820, L501.9520 ####[facility] [address] [place], [address] GAP 6 Normal 5-15 [facility] Comment on above: Order Comment: 514.1 Performed By: #### L 501.6710, L100.0100, L500.4050, L501.8820, L501.9520 ####[facility] [address] [place], [address] GFR/1.73 sq M.predicted among non-blacks MDRD (S/P/Bld) [Vol rate/Area] 99 mL/min/{1.73_m2} Normal >60 [facility] Comment on above: Order Comment: 514.1 Result Comment: Non- GFR Calc Performed By: #### L 501.6710, L100.0100, L500.4050, L501.8820, L501.9520 ####[facility] [address] [place], [address] Globulin (S) [Mass/Vol] 4.0 g/dL Normal 2.2-4.2 [facility] Comment on above: Order Comment: 514.1 Performed By: #### L 501.6710, L100.0100, L500.4050, L501.8820, L501.9520 ####[facility] [address] [place], [address] Glucose [Mass/Vol] 112 mg/dL High 74-106 [facility] Comment on above: Order Comment: 514.1 Result Comment: Fast ing Glucose result from 100 to 125 mg/dLsuggests IMPAIRED HOMEOSTASIS per A.D.A. criteria. Performed By: #### L 501.6710, L100.0100, L500.4050, L501.8820, L501.9520 ####[facility] [address] [place], [address] Potassium [Moles/Vol] 3.6 mmol/L Normal 3.5-5.1 [facility] Comment on above: Order Comment: 514.1 Performed By: #### L 501.6710, L100.0100, L500.4050, L501.8820, L501.9520 ####[facility] [address] [place], [address] Sodium [Moles/Vol] 134 mmol/L Low 136-145 [facility] Comment on above: Order Comment: 514.1 Performed By: #### L 501.6710, L100.0100, L500.4050, L501.8820, L501.9520 ####[facility] [address] [place], [address] T PROT 5.7 g/dL Low 6.4-8.2 [facility] Comment on above: Order Comment: 514.1 Performed By: #### L 501.6710, L100.0100, L500.4050, L501.8820, L501.9520 ####[facility] [address] [place], [address] Urea nitrogen [Mass/Vol] 16 mg/dL Normal 7-18 [facility] Comment on above: Order Comment: 514.1 Performed By: #### L 501.6710, L100.0100, L500.4050, L501.8820, L501.9520 ####[facility] [address] [place], [address] Thyroid Stim Hormone (TSH)on 12-11-2023 TSH 2.240 uIU/mL Normal 0.358-3.740 [facility] Comment on above: Order Comment: 514.1 Performed By: #### L 501.6710, L100.0100, L500.4050, L501.8820, L501.9520 ####[facility] [address] [place], [address] Vancomycin, Trough Levelon 0 - VANCO, TROUGH 20.7 ug/mL High 5.0-15.0 [facility] Comment on above: Order Comment: 514.1 0000 Result Comment: VANC OMYCIN STANDARED DRUG THERAPY TROUGH LEVEL: 5.0 - 15.0 mg/LVANCOMYCIN HIGH INTENSITY THERAPY TROUGH LEVEL: 15.0 - 20.0 mg/LHigh Intensity therapy recommended for serious lifethreatening infections include:- Adbjpaztei-Ckvydimnkwvn-Khnrncufz (Ventilator/Healtcare Associated)-SepsisPLEASE CONTACT PHARMACY SERVICES (#1543) FOR INTERPRETATIONOF RESULTS. Performed By: #### L 501.6710, L100.0100, L500.4050, L501.8820, L501.9520 ####[facility] [address] [place], [address] CBC W/Diff, Automatedon 08- Absolute Lymph 2.08 X10 3/uL Normal 0.83-4.51 [facility] Comment on above: Order Comment: 514-1 Performed By: #### L 501.6710, L500.4050, L100.0100, L501.8820 ####[facility] [address] [place], [address] Absolute Neut 9.0 X10 3/uL High 2.0-7.7 [facility] Comment on above: Order Comment: 514-1 Performed By: #### L 501.6710, L500.4050, L100.0100, L501.8820 ####[facility] [address] [place], [address] Basophils/100 WBC (Bld) 0.6 % Normal 0-1 [facility] Comment on above: Order Comment: 514-1 Performed By: #### L 501.6710, L500.4050, L100.0100, L501.8820 ####[facility] [address] [place], [address] Eosinophils/100 WBC (Bld) 2.2 % Normal 0-5 [facility] Comment on above: Order Comment: 514-1 Performed By: #### L 501.6710, L500.4050, L100.0100, L501.8820 ####[facility] [address] [place], [address] Erythrocyte distribution width (RBC) [Ratio] 17.2 % High 11.6-14.6 [facility] Comment on above: Order Comment: 514-1 Performed By: #### L 501.6710, L500.4050, L100.0100, L501.8820 ####[facility] [address] [place], [address] Hematocrit (Bld) [Volume fraction] 30.6 % Low 37-47 [facility] Comment on above: Order Comment: 514-1 Performed By: #### L 501.6710, L500.4050, L100.0100, L501.8820 ####[facility] [address] [place], [address] Hemoglobin (Bld) [Mass/Vol] 9.4 g/dL Low 12.0-15.0 [facility] Comment on above: Order Comment: 514-1 Performed By: #### L 501.6710, L500.4050, L100.0100, L501.8820 ####[facility] [address] [place], [address] IG% 0.700 Normal 0.0-0.9 [facility] Comment on above: Order Comment: 514-1 Result Comment: IG% - Immature Granulocytes (promyelocytes, myelocytes andmetamyelocytes) > 1% indicates that a LEFT SHIFT is Present. Performed By: #### L 501.6710, L500.4050, L100.0100, L501.8820 ####[facility] [address] [place], [address] Lymphocytes/100 WBC (Bld) 16.7 % Low 19-41 [facility] Comment on above: Order Comment: 514-1 Performed By: #### L 501.6710, L500.4050, L100.0100, L501.8820 ####[facility] [address] [place], [address] MCH (RBC) [Entitic mass] 26.4 pg Low 27.0-32.0 [facility] Comment on above: Order Comment: 514-1 Performed By: #### L 501.6710, L500.4050, L100.0100, L501.8820 ####[facility] [address] [place], [address] MCHC (RBC) [Mass/Vol] 30.7 g/dL Low 32-36 [facility] Comment on above: Order Comment: 514-1 Performed By: #### L 501.6710, L500.4050, L100.0100, L501.8820 ####[facility] [address] [place], [address] MCV (RBC) [Entitic vol] 86.0 fL Normal 81-99 [facility] Comment on above: Order Comment: 514-1 Performed By: #### L 501.6710, L500.4050, L100.0100, L501.8820 ####[facility] [address] [place], [address] Monocytes/100 WBC (Bld) 7.7 % Normal 0-10 [facility] Comment on above: Order Comment: 514-1 Performed By: #### L 501.6710, L500.4050, L100.0100, L501.8820 ####[facility] [address] [place], [address] Neutrophils/100 WBC (Bld) 72.1 % High 47-70 [facility] Comment on above: Order Comment: 514-1 Performed By: #### L 501.6710, L500.4050, L100.0100, L501.8820 ####[facility] [address] [place], [address] Nucleated RBC (Bld) [#/Vol] 0 10*3/uL Normal 0-5 [facility] Comment on above: Order Comment: 514-1 Performed By: #### L 501.6710, L500.4050, L100.0100, L501.8820 ####[facility] [address] [place], [address] Platelet mean volume (Bld) [Entitic vol] 9.2 fL Normal 6.2-12.0 [facility] Comment on above: Order Comment: 514-1 Performed By: #### L 501.6710, L500.4050, L100.0100, L501.8820 ####[facility] [address] [place], [address] Platelets (Bld) [#/Vol] 319 10*3/uL Normal 150-450 [facility] Comment on above: Order Comment: 514-1 Performed By: #### L 501.6710, L500.4050, L100.0100, L501.8820 ####[facility] [address] [place], [address] RBC (Bld) [#/Vol] 3.56 10*6/uL Low 4.2-5.4 [facility] Comment on above: Order Comment: 514-1 Performed By: #### L 501.6710, L500.4050, L100.0100, L501.8820 ####[facility] [address] [place], [address] RDW SD 55.0 fl High 35.1-43.9 [facility] Comment on above: Order Comment: 514-1 Performed By: #### L 501.6710, L500.4050, L100.0100, L501.8820 ####[facility] [address] [place], [address] WBC (Bld) [#/Vol] 12.5 10*3/uL High 4.4-11.0 [facility] Comment on above: Order Comment: 514-1 Performed By: #### L 501.6710, L500.4050, L100.0100, L501.8820 ####[facility] [address] [place], [address] CRPon 12-03-2023 C-REACTIVE PROT 108.00 mg/L High 0.0-3.0 [facility] Comment on above: Order Comment: 514-1 Result Comment: C-Re active Protein (CRP) provides useful information for thediagnosis, therapy and monitoring of inflammatory processesand associated diseases. For the evaluation of Relative Riskfor Cardiovascular Disease, a High Sensitivity CRP (HSCRP)should be ordered. Performed By: #### L 501.6710, L500.4050, L100.0100, L501.8820 ####[facility] [address] [place], [address] Comprehensive Metabolic Prof ilon 12-03-2023 Albumin [Mass/Vol] 1.8 g/dL Low 3.2-5.0 [facility] Comment on above: Order Comment: 514-1 Performed By: #### L 501.6710, L500.4050, L100.0100, L501.8820 ####[facility] [address] [place], [address] Albumin/Globulin [Mass ratio] 0.4 {ratio} Low 0.9-2.4 [facility] Comment on above: Order Comment: 514-1 Performed By: #### L 501.6710, L500.4050, L100.0100, L501.8820 ####[facility] [address] [place], [address] ALK P 203 U/L High 45-117 [facility] Comment on above: Order Comment: 514-1 Performed By: #### L 501.6710, L500.4050, L100.0100, L501.8820 ####[facility] [address] [place], [address] ALT [Catalytic activity/Vol] 14 U/L Normal 13-56 [facility] Comment on above: Order Comment: 514-1 Performed By: #### L 501.6710, L500.4050, L100.0100, L501.8820 ####[facility] [address] [place], [address] AST [Catalytic activity/Vol] 20 U/L Normal 15-37 [facility] Comment on above: Order Comment: 514-1 Performed By: #### L 501.6710, L500.4050, L100.0100, L501.8820 ####[facility] [address] [place], [address] Bilirubin [Mass/Vol] 0.30 mg/dL Normal 0.20-1.00 [facility] Comment on above: Order Comment: 514-1 Result Comment: For patients on eltrombopag therapy, use of Dimension [place] TBIL is not recommended. Performed By: #### L 501.6710, L500.4050, L100.0100, L501.8820 ####[facility] [address] [place], [address] BUN/CRE 24.4 RATIO High 10-20 [facility] Comment on above: Order Comment: 514-1 Performed By: #### L 501.6710, L500.4050, L100.0100, L501.8820 ####[facility] [address] [place], [address] CA,Total 8.3 mg/dL Low 8.5-10.1 [facility] Comment on above: Order Comment: 514-1 Performed By: #### L 501.6710, L500.4050, L100.0100, [id number] ####[facility] [address] [place], [address] Chloride [Moles/Vol] 100 mmol/L Normal 98-107 [facility] Comment on above: Order Comment: 514-1 Performed By: #### L 501.6710, [id number], L100.0100, [id number] ####[facility] [address] [place], [address] CO2 [Moles/Vol] 26.0 mmol/L Normal 21.0-32.0 [facility] Comment on above: Order Comment: 514-1 Performed By: #### L 501.6710, L500.4050, L100.0100, [id number] ####[facility] [address] [place], [address] Creatinine [Mass/Vol] 0.78 mg/dL Normal 0.55-1.02 [facility] Comment on above: Order Comment: 514-1 Result Comment: The validity of the calculated GFR GFRAA in patients over70 years has not been determined. Clinical correlation isessential. Performed By: #### L 501.6710, L500.4050, L100.0100, [id number] ####[facility] [address] [place], [address] EST GFR - AA 92 mL/min Normal >60 [facility] Comment on above: Order Comment: 514-1 Result Comment: Afri can [place] GFR Calc Performed By: #### L 501.6710, [id number], L100.0100, [id number] ####[facility] [address] [place], [address] GAP 10 Normal 5-15 [facility] Comment on above: Order Comment: 514-1 Performed By: #### L 501.6710, L500.4050, L100.0100, [id number] ####[facility] [address] [place], [address] GFR/1.73 sq M.predicted among non-blacks MDRD (S/P/Bld) [Vol rate/Area] 76 mL/min/{1.73_m2} Normal >60 [facility] Comment on above: Order Comment: 514-1 Result Comment: Non- GFR Calc Performed By: #### L 501.6710, L500.4050, L100.0100, [id number] ####[facility] [address] [place], [address] Globulin (S) [Mass/Vol] 4.0 g/dL Normal 2.2-4.2 [facility] Comment on above: Order Comment: 514-1 Performed By: #### L 501.6710, L500.4050, L100.0100, L501.8820 ####[facility] [address] [place], [address] Glucose [Mass/Vol] 132 mg/dL High 74-106 [facility] Comment on above: Order Comment: 514-1 Result Comment: Fast ing Glucose result greater than or equal to 126 mg/dLsuggests DIABETES MELLITUS per A.D.A. criteria. Performed By: #### L 501.6710, L500.4050, L100.0100, L501.8820 ####[facility] [address] [place], [address] Potassium [Moles/Vol] 3.3 mmol/L Low 3.5-5.1 [facility] Comment on above: Order Comment: 514-1 Performed By: #### L 501.6710, L500.4050, L100.0100, L501.8820 ####[facility] [address] [place], [address] Sodium [Moles/Vol] 136 mmol/L Normal 136-145 [facility] Comment on above: Order Comment: 514-1 Performed By: #### L 501.6710, L500.4050, L100.0100, L501.8820 ####[facility] [address] [place], [address] T PROT 5.8 g/dL Low 6.4-8.2 [facility] Comment on above: Order Comment: 514-1 Performed By: #### L 501.6710, L500.4050, L100.0100, L501.8820 ####[facility] [address] [place], [address] Urea nitrogen [Mass/Vol] 19 mg/dL High 7-18 [facility] Comment on above: Order Comment: 514- Performed By: #### L 501.6710, L500.4050, L100.0100, L501.8820 ####[facility] [address] [place], [address] Vancomycin, Trough Levelon 0 8- VANCO, TROUGH 18.9 ug/mL High 5.0-15.0 [facility] Comment on above: Order Comment: 514-1 0730 Result Comment: VANC OMYCIN STANDARED DRUG THERAPY TROUGH LEVEL: 5.0 - 15.0 mg/LVANCOMYCIN HIGH INTENSITY THERAPY TROUGH LEVEL: 15.0 - 20.0 mg/LHigh Intensity therapy recommended for serious lifethreatening infections include:- Nduhabbacv-Iefjygxtcpjd-Zkajilcly (Ventilator/Healtcare Associated)-SepsisPLEASE CONTACT PHARMACY SERVICES (#5374) FOR INTERPRETATIONOF RESULTS. Performed By: #### L 501.6710, L500.4050, L100.0100, L501.8820 ####[facility] [address] [place], [address] Vancomycin, Trough Levelon 0 8- VANCO, TROUGH 23.4 ug/mL High 5.0-15.0 [facility] Comment on above: Order Comment: 514.1 0000 Result Comment: VANC OMYCIN STANDARED DRUG THERAPY TROUGH LEVEL: 5.0 - 15.0 mg/LVANCOMYCIN HIGH INTENSITY THERAPY TROUGH LEVEL: 15.0 - 20.0 mg/LHigh Intensity therapy recommended for serious lifethreatening infections include:- Mlxmeoixks-Pbusybmibnws-Ekfwmgpcj (Ventilator/Healtcare Associated)-SepsisPLEASE CONTACT PHARMACY SERVICES (#8496) FOR INTERPRETATIONOF RESULTS. Performed By: #### L 501.8820 ####[facility] [address] [place], [address] Folates, (Folic Acid)on 11-08 FOLATES 16.60 ng/mL Normal 3.1-55.4 [facility] Comment on above: Order Comment: 514-1 N Result Comment: Slig ht Hemolysis, Result may be falsely increased. Performed By: #### L 506.1000, L506.0250, L503.0105 ####[facility] [address] [place], [address] Vitamin B12on 11-28-2023 Cobalamin (Vitamin B12) [Mass/Vol] 576 pg/mL Normal 211-911 [facility] Comment on above: Order Comment: 514 Performed By: #### L 506.1000, L506.0250, L503.0105 ####[facility] [address] [place], [address] Vitamin D,25 Hydroxyon 11-27 Vitamin D 25-OH 51.4 ng/mL Normal [facility] Comment on above: Order Comment: 5141 Result Comment: Ele min D 25(OH) Status Range Deficiency <20 ng/mL (50nmol/L) Insufficiency 20 - 30 ng/mL (50 - 75 nmol/L) Sufficiency 30 - 100 ng/mL (75 - 250 nmol/L) Toxicity >100 ng/mL (>250 nmol/L) Performed By: #### L 506.1000, L506.0250, L503.0105 ####[facility] [address] [place], [address] Vancomycin, Random Levelon 0 11-27-2023 VANCO, RANDOM 15.9 ug/mL High 0.0-15.0 [facility] Comment on above: Order Comment: 514.1 Result Comment: VANC OMYCIN STANDARD DRUG THERAPY: CRITICAL VALUE IS > 15.0 mg/LVANCOMYCIN HIGH INTENSITY THERAPY: CRITICAL VALUE IS > 20.0 mg/LPLEASE CONTACT PHARMACY SERVICES (#9190) FOR INTERPRETATIONOF RESULTS. THIS RESULT DOES NOT REPRESENT A PEAK OR TROUGHLEVEL FOR THIS DRUG. Performed By: #### L 501.8850 ####[facility] [address] [place], [address] Basic Metabolic Profile (BMP )on 11-26-2023 BUN/CRE 19.4 RATIO Normal - [facility] Comment on above: Order Comment: 514.1 Performed By: #### L 501.6710, L500.2500, L501.8820, L100.0100 ####[facility] [address] [place], [address] CA,Total 8.2 mg/dL Low 8.5-10.1 [facility] Comment on above: Order Comment: 514.1 Performed By: #### L 501.6710, L500.2500, L501.8820, L100.0100 ####[facility] [address] [place], [address] Chloride [Moles/Vol] 106 mmol/L Normal 98-107 [facility] Comment on above: Order Comment: 514.1 Performed By: #### L 501.6710, L500.2500, L501.8820, L100.0100 ####[facility] [address] [place], [address] CO2 [Moles/Vol] 27.0 mmol/L Normal 21.0-32.0 [facility] Comment on above: Order Comment: 514.1 Performed By: #### L 501.6710, L500.2500, L501.8820, L100.0100 ####[facility] [address] [place], [address] Creatinine [Mass/Vol] 0.62 mg/dL Normal 0.55-1.02 [facility] Comment on above: Order Comment: 514.1 Result Comment: The validity of the calculated GFR GFRAA in patients over70 years has not been determined. Clinical correlation isessential. Performed By: #### L 501.6710, L500.2500, L501.8820, L100.0100 ####[facility] [address] [place], [address] EST GFR - AA 121 mL/min Normal >60 [facility] Comment on above: Order Comment: 514.1 Result Comment: Afri can Djiboutian GFR Calc Performed By: #### L 501.6710, L500.2500, L501.8820, L100.0100 ####[facility] [address] [place], [address] GAP 5 Normal 5-15 [facility] Comment on above: Order Comment: 514.1 Performed By: #### L 501.6710, L500.2500, L501.8820, L100.0100 ####[facility] [address] [place], [address] GFR/1.73 sq M.predicted among non-blacks MDRD (S/P/Bld) [Vol rate/Area] 100 mL/min/{1.73_m2} Normal >60 [facility] Comment on above: Order Comment: 514.1 Result Comment: Non- GFR Calc Performed By: #### L 501.6710, L500.2500, L501.8820, L100.0100 ####[facility] [address] [place], [address] Glucose [Mass/Vol] 102 mg/dL Normal 74-106 [facility] Comment on above: Order Comment: 514.1 Result Comment: Fast ing Glucose result from 100 to 125 mg/dLsuggests IMPAIRED HOMEOSTASIS per A.D.A. criteria. Performed By: #### L 501.6710, L500.2500, L501.8820, L100.0100 ####[facility] [address] [place], [address] Potassium [Moles/Vol] 3.3 mmol/L Low 3.5-5.1 [facility] Comment on above: Order Comment: 514.1 Performed By: #### L 501.6710, L500.2500, L501.8820, L100.0100 ####[facility] [address] [place], [address] Sodium [Moles/Vol] 138 mmol/L Normal 136-145 [facility] Comment on above: Order Comment: 514.1 Performed By: #### L 501.6710, L500.2500, L501.8820, L100.0100 ####[facility] [address], [address] Urea nitrogen [Mass/Vol] 12 mg/dL Normal 7-18 [facility] Comment on above: Order Comment: 514.1 Performed By: #### L 501.6710, L500.2500, L501.8820, L100.0100 ####[facility] [address] [place], [address] CBC W/Diff, Automatedon 08- Absolute Lymph 2.11 X10 3/uL Normal 0.83-4.51 [facility] Comment on above: Order Comment: 514.1 Performed By: #### L 501.6710, L500.2500, L501.8820, L100.0100 ####[facility] [address] [place], [address] Absolute Neut 3.8 X10 3/uL Normal 2.0-7.7 [facility] Comment on above: Order Comment: 514.1 Performed By: #### L 501.6710, L500.2500, L501.8820, L100.0100 ####[facility] [address] [place], [address] Basophils/100 WBC (Bld) 0.6 % Normal 0-1 [facility] Comment on above: Order Comment: 514.1 Performed By: #### L 501.6710, L500.2500, L501.8820, L100.0100 ####[facility] [address] [place], [address] Eosinophils/100 WBC (Bld) 3.6 % Normal 0-5 [facility] Comment on above: Order Comment: 514.1 Performed By: #### L 501.6710, L500.2500, L501.8820, L100.0100 ####[facility] [address] [place], [address] Erythrocyte distribution width (RBC) [Ratio] 17.3 % High 11.6-14.6 [facility] Comment on above: Order Comment: 514.1 Performed By: #### L 501.6710, L500.2500, L501.8820, L100.0100 ####[facility] [address] [place], [address] Hematocrit (Bld) [Volume fraction] 30.2 % Low 37-47 [facility] Comment on above: Order Comment: 514.1 Performed By: #### L 501.6710, L500.2500, L501.8820, L100.0100 ####[facility] [address] [place], [address] Hemoglobin (Bld) [Mass/Vol] 9.1 g/dL Low 12.0-15.0 [facility] Comment on above: Order Comment: 514.1 Performed By: #### L 501.6710, L500.2500, L501.8820, L100.0100 ####[facility] [address] [place], [address] IG% 0.400 Normal 0.0-0.9 [facility] Comment on above: Order Comment: 514.1 Result Comment: IG% - Immature Granulocytes (promyelocytes, myelocytes andmetamyelocytes) > 1% indicates that a LEFT SHIFT is Present. Performed By: #### L 501.6710, L500.2500, L501.8820, L100.0100 ####[facility] [address] [place], [address] Lymphocytes/100 WBC (Bld) 31.5 % Normal 19-41 [facility] Comment on above: Order Comment: 514.1 Performed By: #### L 501.6710, L500.2500, L501.8820, L100.0100 ####[facility] [address] [place], [address] MCH (RBC) [Entitic mass] 26.4 pg Low 27.0-32.0 [facility] Comment on above: Order Comment: 514.1 Performed By: #### L 501.6710, L500.2500, L501.8820, L100.0100 ####[facility] [address] [place], [address] MCHC (RBC) [Mass/Vol] 30.1 g/dL Low 32-36 [facility] Comment on above: Order Comment: 514.1 Performed By: #### L 501.6710, L500.2500, L501.8820, L100.0100 ####[facility] [address] [place], [address] MCV (RBC) [Entitic vol] 87.5 fL Normal 81-99 [facility] Comment on above: Order Comment: 514.1 Performed By: #### L 501.6710, L500.2500, L501.8820, L100.0100 ####[facility] [address] [place], [address] Monocytes/100 WBC (Bld) 7.5 % Normal 0-10 [facility] Comment on above: Order Comment: 514.1 Performed By: #### L 501.6710, L500.2500, L501.8820, L100.0100 ####[facility] [address] [place], [address] Neutrophils/100 WBC (Bld) 56.4 % Normal 47-70 [facility] Comment on above: Order Comment: 514.1 Performed By: #### L 501.6710, L500.2500, L501.8820, L100.0100 ####[facility] [address] [place], [address] Nucleated RBC (Bld) [#/Vol] 0 10*3/uL Normal 0-5 [facility] Comment on above: Order Comment: 514.1 Performed By: #### L 501.6710, L500.2500, L501.8820, L100.0100 ####[facility] [address] [place], [address] Platelet mean volume (Bld) [Entitic vol] 8.5 fL Normal 6.2-12.0 [facility] Comment on above: Order Comment: 514.1 Performed By: #### L 501.6710, L500.2500, L501.8820, L100.0100 ####[facility] [address] [place], [address] Platelets (Bld) [#/Vol] 240 10*3/uL Normal 150-450 [facility] Comment on above: Order Comment: 514.1 Performed By: #### L 501.6710, L500.2500, L501.8820, L100.0100 ####[facility] [address] [place], [address] RBC (Bld) [#/Vol] 3.45 10*6/uL Low 4.2-5.4 [facility] Comment on above: Order Comment: 514.1 Performed By: #### L 501.6710, L500.2500, L501.8820, L100.0100 ####[facility] [address] [place], [address] RDW SD 56.0 fl High 35.1-43.9 [facility] Comment on above: Order Comment: 514.1 Performed By: #### L 501.6710, L500.2500, L501.8820, L100.0100 ####[facility] [address] [place], [address] WBC (Bld) [#/Vol] 6.7 10*3/uL Normal 4.4-11.0 [facility] Comment on above: Order Comment: 514.1 Performed By: #### L 501.6710, L500.2500, L501.8820, L100.0100 ####[facility] [address] [place], [address] CRPon 11-26-2023 C-REACTIVE PROT 62.00 mg/L High 0.0-3.0 [facility] Comment on above: Order Comment: 514.1 Result Comment: C-Re active Protein (CRP) provides useful information for thediagnosis, therapy and monitoring of inflammatory processesand associated diseases. For the evaluation of Relative Riskfor Cardiovascular Disease, a High Sensitivity CRP (HSCRP)should be ordered. Performed By: #### L 501.6710, L500.2500, L501.8820, L100.0100 ####[facility] [address] [place], [address] Vancomycin, Trough Levelon 0 11-26-2023 VANCO, TROUGH 27.3 ug/mL High 5.0-15.0 [facility] Comment on above: Order Comment: 514.1 0000 Result Comment: VANC OMYCIN STANDARED DRUG THERAPY TROUGH LEVEL: 5.0 - 15.0 mg/LVANCOMYCIN HIGH INTENSITY THERAPY TROUGH LEVEL: 15.0 - 20.0 mg/LHigh Intensity therapy recommended for serious lifethreatening infections include:- Mfvypbyiio-Votjvsbjcamv-Ccbzrtkyd (Ventilator/Healtcare Associated)-SepsisPLEASE CONTACT PHARMACY SERVICES (#2652) FOR INTERPRETATIONOF RESULTS. Performed By: #### L 501.6710, L500.2500, L501.8820, L100.0100 ####[facility] [address] [place], [address] Basic Metabolic Profile (BMP )on 11-21-2023 BUN/CRE 21.1 RATIO High 10-20 [facility] Comment on above: Order Comment: 514-1 Performed By: #### L 100.0100, L500.2500 ####[facility] [address] [place], [address] CA,Total 8.6 mg/dL Normal 8.5-10.1 [facility] Comment on above: Order Comment: 514-1 Performed By: #### L 100.0100, L500.2500 ####[facility] [address] [place], [address] Chloride [Moles/Vol] 101 mmol/L Normal 98-107 [facility] [place] Comment on above: Order Comment: 514-1 Performed By: #### L 100.0100, L500.2500 ####[facility] [address] [place], [address] CO2 [Moles/Vol] 29.0 mmol/L Normal 21.0-32.0 [facility] Comment on above: Order Comment: 514-1 Performed By: #### L 100.0100, L500.2500 ####[facility] [address] [place], [address] Creatinine [Mass/Vol] 0.62 mg/dL Normal 0.55-1.02 [facility] Comment on above: Order Comment: 514-1 Result Comment: The validity of the calculated GFR GFRAA in patients over70 years has not been determined. Clinical correlation isessential. Performed By: #### L 100.0100, L500.2500 ####[facility] [address] [place], [address] EST GFR - AA 122 mL/min Normal >60 [facility] Comment on above: Order Comment: 514-1 Result Comment: Afri can [place]ib[place] GFR Calc Performed By: #### L 100.0100, L500.2500 ####[facility] [address] [place], [address] GAP 6 Normal 5-15 [facility] Comment on above: Order Comment: 514-1 Performed By: #### L 100.0100, L500.2500 ####[facility] [address] [place], [address] GFR/1.73 sq M.predicted among non-blacks MDRD (S/P/Bld) [Vol rate/Area] 100 mL/min/{1.73_m2} Normal >60 [facility] Comment on above: Order Comment: 514- Result Comment: Non- GFR Calc Performed By: #### L 100.0100, L500.2500 ####[facility] [address] [place], [address] Glucose [Mass/Vol] 134 mg/dL High 74-106 [facility] Comment on above: Order Comment: 514-1 Result Comment: Fast ing Glucose result greater than or equal to 126 mg/dLsuggests DIABETES MELLITUS per A.D.A. criteria. Performed By: #### L 100.0100, L500.2500 ####[facility] [address] [place], [address] Potassium [Moles/Vol] 3.4 mmol/L Low 3.5-5.1 [facility] Comment on above: Order Comment: 514-1 Performed By: #### L 100.0100, L500.2500 ####[facility] [address] [place], [address] Sodium [Moles/Vol] 136 mmol/L Normal 136-145 [facility] Comment on above: Order Comment: 514-1 Performed By: #### L 100.0100, L500.2500 ####[facility] [address] [place], [address] Urea nitrogen [Mass/Vol] 13 mg/dL Normal 7-18 [facility] Comment on above: Order Comment: 514-1 Performed By: #### L 100.0100, L500.2500 ####[facility] [address] [place], [address] CBC W/Diff, Automatedon 08- 4-2023 Absolute Lymph 1.69 X10 3/uL Normal 0.83-4.51 [facility] Comment on above: Order Comment: 514-1 Performed By: #### L 100.0100, L500.2500 ####[facility] [address] [place], [address] Absolute Neut 5.1 X10 3/uL Normal 2.0-7.7 [facility] Comment on above: Order Comment: 514-1 Performed By: #### L 100.0100, L500.2500 ####[facility] [address] [place], [address] Basophils/100 WBC (Bld) 0.5 % Normal 0-1 [facility] Comment on above: Order Comment: 514-1 Performed By: #### L 100.0100, L500.2500 ####[facility] [address] [place], [address] Eosinophils/100 WBC (Bld) 2.9 % Normal 0-5 [facility] Comment on above: Order Comment: 514-1 Performed By: #### L 100.0100, L500.2500 ####[facility] [address] [place], [address] Erythrocyte distribution width (RBC) [Ratio] 17.3 % High 11.6-14.6 [facility] Comment on above: Order Comment: 514-1 Performed By: #### L 100.0100, L500.2500 ####[facility] [address] [place], [address] Hematocrit (Bld) [Volume fraction] 27.1 % Low 37-47 [facility] Comment on above: Order Comment: 514-1 Performed By: #### L 100.0100, L500.2500 ####[facility] [address] [place], [address] Hemoglobin (Bld) [Mass/Vol] 8.4 g/dL Low 12.0-15.0 [facility] Comment on above: Order Comment: 514-1 Performed By: #### L 100.0100, L500.2500 ####[facility] [address] [place], [address] IG% 0.500 Normal 0.0-0.9 [facility] Comment on above: Order Comment: 514-1 Result Comment: IG% - Immature Granulocytes (promyelocytes, myelocytes andmetamyelocytes) > 1% indicates that a LEFT SHIFT is Present. Performed By: #### L 100.0100, L500.2500 ####[facility] [address] [place], [address] Lymphocytes/100 WBC (Bld) 21.5 % Normal 19-41 [facility] Comment on above: Order Comment: 514-1 Performed By: #### L 100.0100, L500.2500 ####[facility] [address] [place], [address] MCH (RBC) [Entitic mass] 27.0 pg Normal 27.0-32.0 [facility] Comment on above: Order Comment: 514-1 Performed By: #### L 100.0100, L500.2500 ####[facility] [address] [place], [address] MCHC (RBC) [Mass/Vol] 31.0 g/dL Low 32-36 [facility] Comment on above: Order Comment: 514-1 Performed By: #### L 100.0100, L500.2500 ####[facility] [address] [place], [address] MCV (RBC) [Entitic vol] 87.1 fL Normal 81-99 [facility] Comment on above: Order Comment: 514-1 Performed By: #### L 100.0100, L500.2500 ####[facility] [address] [place], [address] Monocytes/100 WBC (Bld) 9.3 % Normal 0-10 [facility] Comment on above: Order Comment: 514-1 Performed By: #### L 100.0100, L500.2500 ####[facility] [address] [place], [address] Neutrophils/100 WBC (Bld) 65.3 % Normal 47-70 [facility] Comment on above: Order Comment: 514-1 Performed By: #### L 100.0100, L500.2500 ####[facility] [address] [place], [address] Nucleated RBC (Bld) [#/Vol] 0 10*3/uL Normal 0-5 [facility] Comment on above: Order Comment: 514-1 Performed By: #### L 100.0100, L500.2500 ####[facility] [address] [place], [address] Platelet mean volume (Bld) [Entitic vol] 9.3 fL Normal 6.2-12.0 [facility] Comment on above: Order Comment: 514-1 Performed By: #### L 100.0100, L500.2500 ####[facility] [address] [place], [address] Platelets (Bld) [#/Vol] 195 10*3/uL Normal 150-450 [facility] Comment on above: Order Comment: 514-1 Performed By: #### L 100.0100, L500.2500 ####[facility] [address] [place], [address] RBC (Bld) [#/Vol] 3.11 10*6/uL Low 4.2-5.4 [facility] Comment on above: Order Comment: 514-1 Performed By: #### L 100.0100, L500.2500 ####[facility] [address] [place], [address] RDW SD 54.7 fl High 35.1-43.9 [facility] Comment on above: Order Comment: 514-1 Performed By: #### L 100.0100, L500.2500 ####[facility] [address] [place], [address] WBC (Bld) [#/Vol] 7.9 10*3/uL Normal 4.4-11.0 [facility] Comment on above: Order Comment: 514-1 Performed By: #### L 100.0100, L500.2500 ####[facility] [address] [place], [address] CBC panel Auto (Bld)on 11-19 Erythrocyte distribution width (RBC) [Ratio] 17.2 % High 11.5 - 14.5 % [facility] Hematocrit (Bld) [Volume fraction] 26.5 % Low 36.0 - 46.0 % [facility] Hemoglobin (Bld) [Mass/Vol] 8.3 g/dL Low 12.0 - 16.0 g/dL [facility] Interpretation and review of laboratory results Abnormal [facility] MCH (RBC) [Entitic mass] 27.3 pg 26.0 - 34.0 pg [facility] MCHC (RBC) [Mass/Vol] 31.3 g/dL Low 32.0 - 36.0 g/dL [facility] MCV (RBC) [Entitic vol] 87 fL 80 - 100 fL [facility] Nucleated RBC/100 WBC (Bld) [Ratio] 0.0 % [facility] Platelets (Bld) [#/Vol] 180 10*3/uL [facility] RBC (Bld) [#/Vol] 3.04 10*6/uL Low [facility] WBC (Bld) [#/Vol] 7.5 10*3/uL [facility] Erythrocyte distribution width (RBC) [Ratio] 17.2 % High 11.5-14.5 [facility] Comment on above: Performed By: #### 1 9123-9 #### OMERO KNIGHT ([id number]) [facility] ([facility]) [address] [place] [address] Hematocrit (Bld) [Volume fraction] 26.5 % Low 36.0-46.0 [facility] Comment on above: Performed By: #### 1 9123-9 #### OMERO KNIGHT ([id number]) [facility] ([facility]) [address] [place] [address] Hemoglobin (Bld) [Mass/Vol] 8.3 g/dL Low 12.0-16.0 [facility] Comment on above: Performed By: #### 1 9123-9 #### OMERO KNIGHT ([id number]) [facility] ([facility]) [address] [place] [address] MCH (RBC) [Entitic mass] 27.3 pg Normal 26.0-34.0 [facility] Comment on above: Performed By: #### 1 9123-9 #### OMERO KNIGHT ([id number]) [facility] ([facility]) [address] [place] [address] [phone] MCHC (RBC) [Mass/Vol] 31.3 g/dL Low 32.0-36.0 [facility] Comment on above: Performed By: #### 1 9123-9 #### OMERO KNIGHT ([id number]) [facility] ([facility]) [address] [place] [address] [phone] MCV (RBC) [Entitic vol] 87 fL Normal 80-100 [facility] Comment on above: Performed By: #### 1 9123-9 #### OMERO KNIGHT ([id number]) [facility] ([facility]) [address] [place] [address] [phone] Nucleated RBC/100 WBC (Bld) [Ratio] 0.0 /100 WBCs Normal 0.0-0.0 [facility] Comment on above: Performed By: #### 1 9123-9 #### OMERO KNIGHT ([id number]) [facility] ([facility]) [address] [place] [address] [phone] Platelets (Bld) [#/Vol] 180 x10*3/uL Normal 150-450 [facility] Comment on above: Performed By: #### 1 9123-9 #### OMERO KNIGHT ([id number]) [facility] ([facility]) [address] [place] [address] 33501 RBC (Bld) [#/Vol] 3.04 x10*6/uL Low 4.00-5.20 [facility] Comment on above: Performed By: #### 1 9123-9 #### OMERO KNIGHT ([id number]) [facility] ([facility]) [address] [place] [address] 91384 WBC (Bld) [#/Vol] 7.5 x10*3/uL Normal 4.4-11.3 [facility] Comment on above: Performed By: #### 1 9123-9 #### OMERO KNIGHT ([id number]) [facility] ([facility]) [address] [place] [address] 59011 Glucose Test strip manual (B ld) [Mass/Vol]on 11-20-2023 Glucose [Mass/Vol] 118 mg/dL High 74 - 99 mg/dL [facility] Interpretation and review of laboratory results Abnormal [facility] Glucose [Mass/Vol] 118 mg/dL High 74-99 [facility] Comment on above: Performed By: #### 1 9123-9 #### OMERO KNIGHT ([id number]) [facility] ([facility]) [address] [place] [address] 16112 Glucose [Mass/Vol] 135 mg/dL High 74 - 99 mg/dL [facility] Interpretation and review of laboratory results Abnormal [facility] Glucose [Mass/Vol] 135 mg/dL High 74-99 [facility] Comment on above: Performed By: #### 1 9123-9 #### OMERO KNIGHT ([id number]) [facility] ([facility]) [address] [place], [place] [id number] Magnesiumon 11-20-2023 Magnesium [Mass/Vol] 1.52 mg/dL Low 1.60 - 2.40 mg/dL [facility] Magnesium [Mass/Vol] 1.52 mg/dL Low 1.60-2.40 [facility] Comment on above: Performed By: #### 1 9123-9 #### OMERO KNIGHT ([id number]) [facility] ([facility]) [facility] [place] [address] No Panel Informationon 11-19 Interpretation and review of laboratory results Abnormal [facility] Renal function 2000 panelon 11-20-2023 Albumin BCP dye [Mass/Vol] 2.5 g/dL Low 3.4 - 5.0 g/dL [facility] Anion gap [Moles/Vol] 13 mmol/L 10 - 2 0 mmol/L [facility] Calcium [Mass/Vol] 8.1 mg/dL Low 8.6 - 10. 6 mg/dL [facility] Chloride [Moles/Vol] 99 mmol/L 98 - 10 7 mmol/L [facility] CO2 [Moles/Vol] 29 mmol/L 21 - 32 mmol/L [facility] Creatinine [Mass/Vol] 0.60 mg/dL 0.50 - 1.05 mg/dL [facility] eGFR - PINF [facility] Glucose [Mass/Vol] 122 mg/dL High 74 - 99 mg/dL [facility] Phosphate [Mass/Vol] 2.9 mg/dL 2.5 - 4 .9 mg/dL [facility] Potassium [Moles/Vol] 3.7 mmol/L 3.5 - 5.3 mmol/L [facility] Sodium [Moles/Vol] 137 mmol/L 136 - 145 mmol/L [facility] Urea nitrogen [Mass/Vol] 12 mg/dL 6 - 23 mg/dL [facility] Albumin BCP dye [Mass/Vol] 2.5 g/dL Low 3.4-5.0 [facility] Comment on above: Performed By: #### 1 9123-9 #### OMERO KNIGHT ([id number]) [facility] ([facility]) [address] [place] [address] Anion gap [Moles/Vol] 13 mmol/L Normal 10-20 [facility] Comment on above: Performed By: #### 1 9123-9 #### OMERO KNIGHT ([id number]) [facility] ([facility]) [address] [place] [address] 35864 Calcium [Mass/Vol] 8.1 mg/dL Low 8.6-10.6 [facility] Comment on above: Performed By: #### 1 9123-9 #### OMERO KNIGHT ([id number]) [facility] ([facility]) [address] [place] [address] 46310 Chloride [Moles/Vol] 99 mmol/L Normal 98-107 [facility] Comment on above: Performed By: #### 1 9123-9 #### OMERO KNIGHT ([id number]) [facility] ([facility]) [address] [place] [address] CO2 [Moles/Vol] 29 mmol/L Normal 21-32 [facility] Comment on above: Performed By: #### 1 9123-9 #### OMERO KNIGHT ([id number]) [facility] ([facility]) [address] [place] [address] 25006 Creatinine [Mass/Vol] 0.60 mg/dL Normal 0.50-1.05 [facility] Comment on above: Performed By: #### 1 9123-9 #### OMERO KNIGHT ([id number]) [facility] ([facility]) [facility] [place] [address] GFR/1.73 sq M.predicted MDRD (S/P/Bld) [Vol rate/Area] mL/min/{1.73_m2} Normal >60 [facility] Comment on above: Result Comment: Calc ulations of estimated GFR are performed using the 2020 CKD-EPI Study Refit equation without the race variable for the IDMS-Traceable creatinine methods. https://jasn.asnjournals.org/content//ASN.53632 15530 Performed By: #### 1 9123-9 #### OMERO KNIGHT ([id number]) [facility] ([facility]) [address] [place] [address] 74684 Glucose [Mass/Vol] 122 mg/dL High 74-99 [facility] Comment on above: Performed By: #### 1 9123-9 #### OMERO KNIGHT ([id number]) [facility] ([facility]) [address] [place] [address] 56504 Phosphate [Mass/Vol] 2.9 mg/dL Normal 2.5-4.9 [facility] Comment on above: Result Comment: The performance characteristics of phosphorus testing in heparinized plasma have been validated by the individual laboratory site where testing is performed. Testing on heparinized plasma is not approved by the FDA; however, such approval is not necessary. Performed By: #### 1 9123-9 #### OMERO KNIGTH ([id number]) [facility] ([facility]) [address] [place] [address] 36066 Potassium [Moles/Vol] 3.7 mmol/L Normal 3.5-5.3 [facility] Comment on above: Performed By: #### 1 9123-9 #### OMERO KNIGHT ([id number]) [facility] ([facility]) [address] [place] [address] 95455 Sodium [Moles/Vol] 137 mmol/L Normal 136-145 [facility] Comment on above: Performed By: #### 1 9123-9 #### OMERO KNIGHT ([id number]) [facility] ([facility]) [address] [place] [address] 94963 Urea nitrogen [Mass/Vol] 12 mg/dL Normal 6-23 [facility] Comment on above: Performed By: #### 1 9123-9 #### OMERO KNIGHT ([id number]) [facility] ([facility]) [address] [place], [place] [address] Vancomycinon 11-20-2023 Vancomycin [Mass/Vol] 15.0 ug/mL 5.0 - 20.0 ug/mL [facility] Vancomycin [Mass/Vol] 15.0 ug/mL Normal 5.0-20.0 [facility] Comment on above: Order Comment: Vanco [...] By: #### 1 9123-9 #### OMERO KNIGHT ([id number]) [facility] ([facility]) [address] [place] [address] 60185 Vancomycin [Mass/Vol]on 11-07 Interpretation and review of laboratory results Normal [facility] 25-hydroxyvitamin D3 [Mass/V ol]on 11-19-2023 [facility] CBC W Auto Differential pane l (Bld)on 11-19-2023 Basophils (Bld) [#/Vol] 0.03 10*3/uL [facility] Basophils/100 WBC (Bld) 0.4 % 0.0 - 2.0 % [facility] Eosinophils (Bld) [#/Vol] 0.20 10*3/uL [facility] Eosinophils/100 WBC (Bld) 2.5 % 0.0 - 6.0 % [facility] Erythrocyte distribution width (RBC) [Ratio] 17.1 % High 11.5 - 14.5 % [facility] Hematocrit (Bld) [Volume fraction] 27.2 % Low 36.0 - 46.0 % [facility] Hemoglobin (Bld) [Mass/Vol] 8.5 g/dL Low 12.0 - 16.0 g/dL [facility] Immature granulocytes (Bld) [#/Vol] 0.04 10*3/uL [facility] Immature granulocytes/100 WBC (Bld) 0.5 % 0.0 - 0.9 % [facility] Interpretation and review of laboratory results Abnormal [facility] Lymphocytes (Bld) [#/Vol] 2.39 10*3/uL [facility] Lymphocytes/100 WBC (Bld) 29.8 % 13.0 - 44.0 % [facility] MCH (RBC) [Entitic mass] 27.4 pg 26.0 - 34.0 pg [facility] MCHC (RBC) [Mass/Vol] 31.3 g/dL Low 32.0 - 36.0 g/dL [facility] MCV (RBC) [Entitic vol] 88 fL 80 - 100 fL [facility] Monocytes (Bld) [#/Vol] 0.64 10*3/uL [facility] Monocytes/100 WBC (Bld) 8.0 % 2.0 - 10.0 % [facility] Neutrophils (Bld) [#/Vol] 4.73 10*3/uL [facility] Neutrophils/100 WBC (Bld) 58.8 % 40.0 - 80.0 % [facility] Nucleated RBC/100 WBC (Bld) [Ratio] 0.0 % [facility] Platelets (Bld) [#/Vol] 178 10*3/uL [facility] RBC (Bld) [#/Vol] 3.10 10*6/uL Low [facility] WBC (Bld) [#/Vol] 8.0 10*3/uL [facility] Basophils (Bld) [#/Vol] 0.03 x10*3/uL Normal 0.00-0.10 [facility] Comment on above: Performed By: #### 1 9123-9 #### OMERO KNIGHT ([id number]) [facility] ([facility]) [address] [place] [address] 40629 Basophils/100 WBC (Bld) 0.4 % Normal 0.0-2.0 [facility] Comment on above: Performed By: #### 1 9123-9 #### OMERO KNIGHT ([id number]) [facility] ([facility]) [address] [place] [address] 81731 Eosinophils (Bld) [#/Vol] 0.20 x10*3/uL Normal 0.00-0.40 [facility] Comment on above: Performed By: #### 1 9123-9 #### OMERO KNIGHT ([id number]) [facility] ([facility]) [address] [place] [address] 39519 Eosinophils/100 WBC (Bld) 2.5 % Normal 0.0-6.0 [facility] Comment on above: Performed By: #### 1 9123-9 #### OMERO KNIGHT ([id number]) [facility] ([facility]) [address] [place] [address] 87388 Erythrocyte distribution width (RBC) [Ratio] 17.1 % High 11.5-14.5 [facility] Comment on above: Performed By: #### 1 9123-9 #### OMERO KNIGHT (14841) [facility] ([facility]) [address] [place] [address] 57266 Hematocrit (Bld) [Volume fraction] 27.2 % Low 36.0-46.0 [facility] Comment on above: Performed By: #### 1 9123-9 #### OMERO KNIGHT (37859) [facility] ([facility]) [address] [place] [address] 54925 Hemoglobin (Bld) [Mass/Vol] 8.5 g/dL Low 12.0-16.0 [facility] Comment on above: Performed By: #### 1 9123-9 #### OMERO KNIGHT ([id number]) [facility] ([facility]) [address] [place] [address] 35973 Immature granulocytes (Bld) [#/Vol] 0.04 x10*3/uL Normal 0.00-0.50 [facility] Comment on above: Performed By: #### 1 9123-9 #### OMERO KNIGHT ([id number]) [facility] ([facility]) [address] [place] [address] 67006 Immature granulocytes/100 WBC (Bld) 0.5 % Normal 0.0-0.9 [facility] Comment on above: Result Comment: Martina ture Granulocyte Count (IG) includes promyelocytes, myelocytes and metamyelocytes but does not include bands. Percent differential counts (%) should be interpreted in the context of the absolute cell counts (cells/UL). Performed By: #### 1 9123-9 #### OMERO KNIGHT ([id number]) [facility] ([facility]) [address] [place] [address] Lymphocytes (Bld) [#/Vol] 2.39 x10*3/uL Normal 0.80-3.00 [facility] Comment on above: Performed By: #### 1 9123-9 #### OMERO KNIGHT ([id number]) [facility] ([facility]) [address] [place] [address] 21659 Lymphocytes/100 WBC (Bld) 29.8 % Normal 13.0-44.0 [facility] Comment on above: Performed By: #### 1 9123-9 #### OMERO KNIGHT ([id number]) [facility] ([facility]) [address] [place] [address] 23326 MCH (RBC) [Entitic mass] 27.4 pg Normal 26.0-34.0 [facility] Comment on above: Performed By: #### 1 9123-9 #### OMERO KNIGHT ([id number]) [facility] ([facility]) [address] [place] [address] 54033 MCHC (RBC) [Mass/Vol] 31.3 g/dL Low 32.0-36.0 [facility] Comment on above: Performed By: #### 1 9123-9 #### OMERO KNIGHT ([id number]) [facility] ([facility]) [address] [place] [address] 31086 MCV (RBC) [Entitic vol] 88 fL Normal 80-100 [facility] Comment on above: Performed By: #### 1 9123-9 #### OMERO KNIGHT ([id number]) [facility] ([facility]) [address] [place] [address] 96170 Monocytes (Bld) [#/Vol] 0.64 x10*3/uL Normal 0.05-0.80 [facility] Comment on above: Performed By: #### 1 9123-9 #### OMERO KNIGHT ([id number]) [facility] ([facility]) [address] [place] [address] 65312 Monocytes/100 WBC (Bld) 8.0 % Normal 2.0-10.0 [facility] Comment on above: Performed By: #### 1 9123-9 #### OMERO KNIGHT ([id number]) [facility] ([facility]) [address] [place] [address] 42986 Neutrophils (Bld) [#/Vol] 4.73 x10*3/uL Normal 1.60-5.50 [facility] Comment on above: Result Comment: Perc ent differential counts (%) should be interpreted in the context of the absolute cell counts (cells/uL). Performed By: #### 1 9123-9 #### OMERO KNIGHT ([id number]) [facility] ([facility]) [address] [place] [address] 50232 Neutrophils/100 WBC (Bld) 58.8 % Normal 40.0-80.0 [facility] Comment on above: Performed By: #### 1 9123-9 #### OMERO KNIGHT ([id number]) [facility] ([facility]) [address] [place] [address] 92551 Nucleated RBC/100 WBC (Bld) [Ratio] 0.0 /100 WBCs Normal 0.0-0.0 [facility] Comment on above: Performed By: #### 1 9123-9 #### OMERO KNIGHT ([id number]) [facility] ([facility]) [address] [place] [address] 10751 Platelets (Bld) [#/Vol] 178 x10*3/uL Normal 150-450 [facility] Comment on above: Performed By: #### 1 9123-9 #### OMERO KNIGHT ([id number]) [facility] ([facility]) [address] [place], [place] [address] RBC (Bld) [#/Vol] 3.10 x10*6/uL Low 4.00-5.20 [facility] Comment on above: Performed By: #### 1 9123-9 #### OMERO KNIGHT ([id number]) [facility] ([facility]) [address] [place] [address] WBC (Bld) [#/Vol] 8.0 x10*3/uL Normal 4.4-11.3 [facility] Comment on above: Performed By: #### 1 9123-9 #### OMERO KNIGHT (45781) [facility] ([facility]) [address] [place] [address] Calcidiolon 11-19-2023 25-hydroxyvitamin D3 [Mass/Vol] 51 ng/mL Normal 30-100 [facility] Comment on above: Order Comment: Defic iency: < 20 ng/mlInsufficiency: 20-29 ng/mlSufficiency: 30-100 ng/mlThis assay accurately quantifies the sum of Vitamin D3, 25-Hydroxy and Vitamin D2,25-Hydroxy. Performed By: #### 1 9123-9 #### OMERO KNIGHT ([id number]) [facility] ([facility]) [address] [place] [address] Cobalaminson 11-19-2023 Cobalamin (Vitamin B12) [Mass/Vol] 374 pg/mL Normal 211-911 [facility] Comment on above: Performed By: #### 1 9123-9 #### OMERO KNIGHT ([id number]) [facility] ([facility]) [address] [place] [address] Glucose Test strip manual (B ld) [Mass/Vol]on 11-19-2023 Glucose [Mass/Vol] 170 mg/dL High 74 - 99 mg/dL [facility] Interpretation and review of laboratory results Abnormal [facility] Glucose [Mass/Vol] 170 mg/dL High 74-99 [facility] Comment on above: Performed By: #### 1 9123-9 #### OMERO KNIGHT ([id number]) [facility] ([facility]) [address] [place] [address] 65156 Glucose [Mass/Vol] 189 mg/dL High 74 - 99 mg/dL [facility] Interpretation and review of laboratory results Abnormal [facility] Glucose [Mass/Vol] 189 mg/dL High 74-99 [facility] Comment on above: Performed By: #### 1 9123-9 #### OMERO KNIGHT ([id number]) [facility] ([facility]) [address] [place] [address] 55407 Glucose [Mass/Vol] 157 mg/dL High 74 - 99 mg/dL [facility] Interpretation and review of laboratory results Abnormal [facility] Glucose [Mass/Vol] 157 mg/dL High 74-99 [facility] Comment on above: Performed By: #### 1 9123-9 #### OMERO KNIGHT ([id number]) [facility] ([facility]) [address] [place] [address] 70150 Glucose [Mass/Vol] 124 mg/dL High 74 - 99 mg/dL [facility] Interpretation and review of laboratory results Abnormal [facility] Glucose [Mass/Vol] 124 mg/dL High 74-99 [facility] Comment on above: Performed By: #### 1 9123-9 #### OMERO KNIGHT ([id number]) [facility] ([facility]) [address] [place] [address] 87976 Magnesiumon 11-19-2023 Magnesium [Mass/Vol] 1.46 mg/dL Low 1.60 - 2.40 mg/dL [facility] Magnesium [Mass/Vol] 1.46 mg/dL Low 1.60-2.40 [facility] Comment on above: Performed By: #### 1 9123-9 #### OMERO KNIGHT ([id number]) [facility] ([facility]) [address] [place] [address] No Panel Informationon 11-18 Interpretation and review of laboratory results Normal [facility] Interpretation and review of laboratory results Abnormal [facility] Renal function 2000 panelon 11-19-2023 Albumin BCP dye [Mass/Vol] 2.4 g/dL Low 3.4 - 5.0 g/dL [facility] Anion gap [Moles/Vol] 11 mmol/L 10 - 2 0 mmol/L [facility] Calcium [Mass/Vol] 8.0 mg/dL Low 8.6 - 10. 6 mg/dL [facility] Chloride [Moles/Vol] 100 mmol/L 98 - 10 7 mmol/L [facility] CO2 [Moles/Vol] 31 mmol/L 21 - 32 mmol/L [facility] Creatinine [Mass/Vol] 0.61 mg/dL 0.50 - 1.05 mg/dL [facility] eGFR - PINF [facility] Glucose [Mass/Vol] 122 mg/dL High 74 - 99 mg/dL [facility] Phosphate [Mass/Vol] 2.8 mg/dL 2.5 - 4 .9 mg/dL [facility] Potassium [Moles/Vol] 3.8 mmol/L 3.5 - 5.3 mmol/L [facility] Sodium [Moles/Vol] 138 mmol/L 136 - 145 mmol/L [facility] Urea nitrogen [Mass/Vol] 14 mg/dL 6 - 23 mg/dL [facility] Albumin BCP dye [Mass/Vol] 2.4 g/dL Low 3.4-5.0 [facility] Comment on above: Performed By: #### 1 9123-9 #### OMERO KNIGHT ([id number]) [facility] ([facility]) [address] [place], [place] [phone] Anion gap [Moles/Vol] 11 mmol/L Normal 10-20 [facility] Comment on above: Performed By: #### 1 9123-9 #### OMERO KNIGHT (71951) [facility] ([facility]) [address] [place] [address] Calcium [Mass/Vol] 8.0 mg/dL Low 8.6-10.6 [facility] Comment on above: Performed By: #### 1 9123-9 #### OMERO KNIGHT ([id number]) [facility] ([facility]) [address] [place] [address] Chloride [Moles/Vol] 100 mmol/L Normal 98-107 [facility] Comment on above: Performed By: #### 1 9123-9 #### OMERO KNIGHT ([id number]) [facility] ([facility]) [address] [place] [address] CO2 [Moles/Vol] 31 mmol/L Normal 21-32 [facility] Comment on above: Performed By: #### 1 9123-9 #### OMERO KNIGHT ([id number]) [facility] ([facility]) [address] [place] [address] 40998 Creatinine [Mass/Vol] 0.61 mg/dL Normal 0.50-1.05 [facility] Comment on above: Performed By: #### 1 9123-9 #### OMERO KNIGHT (35663) [facility] ([facility]) [address] [place] [address] 76712 GFR/1.73 sq M.predicted MDRD (S/P/Bld) [Vol rate/Area] mL/min/{1.73_m2} Normal >60 [facility] Comment on above: Result Comment: Calc ulations of estimated GFR are performed using the 2020 CKD-EPI Study Refit equation without the race variable for the IDMS-Traceable creatinine methods. https://jasn.asnjournals.org/content//ASN.46911 45743 Performed By: #### 1 9123-9 #### OMERO KNIGHT ([id number]) [facility] ([facility]) [address] [place] [address] Glucose [Mass/Vol] 122 mg/dL High 74-99 [facility] Comment on above: Performed By: #### 1 9123-9 #### OMERO KNIGHT ([id number]) [facility] ([facility]) [address] [place] [address] 04384 Phosphate [Mass/Vol] 2.8 mg/dL Normal 2.5-4.9 [facility] Comment on above: Result Comment: The performance characteristics of phosphorus testing in heparinized plasma have been validated by the individual laboratory site where testing is performed. Testing on heparinized plasma is not approved by the FDA; however, such approval is not necessary. Performed By: #### 1 9123-9 #### OMERO KNIGHT ([id number]) [facility] ([facility]) [address] [place] [address] 57884 Potassium [Moles/Vol] 3.8 mmol/L Normal 3.5-5.3 [facility] Comment on above: Performed By: #### 1 9123-9 #### OMERO KNIGHT ([id number]) [facility] ([facility]) [address] [place] [address] 60710 Sodium [Moles/Vol] 138 mmol/L Normal 136-145 [facility] Comment on above: Performed By: #### 1 9123-9 #### OMERO KNIGHT ([id number]) [facility] ([facility]) [address] [place], [place] [phone] Urea nitrogen [Mass/Vol] 14 mg/dL Normal 6-23 [facility] Comment on above: Performed By: #### 1 9123-9 #### OMERO KNIGHT ([id number]) [facility] ([facility]) [address] [place] [address] 04285 TSH WITH REFLEX TO FREE T4 I F ABNORMALon 11-19-2023 TSH Qn 0.45 m[IU]/L Normal 0.44-3.98 [facility] Comment on above: Order Comment: TSH t esting is performed using different testing methodology at [facility] than at other [facility]. Direct result comparisons should only be made within the same method. Performed By: #### 1 9123-9 #### OMERO KNIGHT ([id number]) [facility] ([facility]) [address] [place] [address] 21567 TSH with reflex to Free T4 i f abnormalon 11-19-2023 Interpretation and review of laboratory results Normal [facility] TSH Qn 0.45 m[IU]/L [facility] Vancomycinon 11-19-2023 Vancomycin [Mass/Vol] 16.0 ug/mL 5.0 - 20.0 ug/mL [facility] Vancomycin [Mass/Vol] 16.0 ug/mL Normal 5.0-20.0 [facility] Comment on above: Order Comment: Vanco [...] By: #### 1 9123-9 #### JAMIL EUGENE ([id number]) [facility] [facility] [address] [place] [address] Vancomycin [Mass/Vol]on 11-07 Interpretation and review of laboratory results Normal [facility] Vitamin B12on 11-19-2023 Cobalamin (Vitamin B12) [Mass/Vol] 374 pg/mL 211 - 911 pg/mL [facility] Vitamin D 25-Hydroxy,Total ( for eval of Vitamin D levels)on 11-19-2023 25-hydroxyvitamin D3 [Mass/Vol] 51 ng/mL 30 - 100 ng/mL [facility] CBC W Auto Differential pane l (Bld)on 11-18-2023 Basophils (Bld) [#/Vol] 0.03 10*3/uL [facility] Basophils/100 WBC (Bld) 0.3 % 0.0 - 2.0 % [facility] Eosinophils (Bld) [#/Vol] 0.22 10*3/uL [facility] Eosinophils/100 WBC (Bld) 2.5 % 0.0 - 6.0 % [facility] Erythrocyte distribution width (RBC) [Ratio] 16.5 % High 11.5 - 14.5 % [facility] Hematocrit (Bld) [Volume fraction] 28.0 % Low 36.0 - 46.0 % [facility] Hemoglobin (Bld) [Mass/Vol] 8.7 g/dL Low 12.0 - 16.0 g/dL [facility] Immature granulocytes (Bld) [#/Vol] 0.04 10*3/uL [facility] Immature granulocytes/100 WBC (Bld) 0.5 % 0.0 - 0.9 % [facility] Interpretation and review of laboratory results Abnormal [facility] Lymphocytes (Bld) [#/Vol] 3.01 10*3/uL High [facility] Lymphocytes/100 WBC (Bld) 34.3 % 13.0 - 44.0 % [facility] MCH (RBC) [Entitic mass] 26.9 pg 26.0 - 34.0 pg [facility] MCHC (RBC) [Mass/Vol] 31.1 g/dL Low 32.0 - 36.0 g/dL [facility] MCV (RBC) [Entitic vol] 87 fL 80 - 100 fL [facility] Monocytes (Bld) [#/Vol] 0.77 10*3/uL [facility] Monocytes/100 WBC (Bld) 8.8 % 2.0 - 10.0 % [facility] Neutrophils (Bld) [#/Vol] 4.70 10*3/uL [facility] Neutrophils/100 WBC (Bld) 53.6 % 40.0 - 80.0 % [facility] Nucleated RBC/100 WBC (Bld) [Ratio] 0.0 % [facility] Platelets (Bld) [#/Vol] 186 10*3/uL [facility] RBC (Bld) [#/Vol] 3.23 10*6/uL Low [facility] WBC (Bld) [#/Vol] 8.8 10*3/uL [facility] Basophils (Bld) [#/Vol] 0.03 x10*3/uL Normal 0.00-0.10 [facility] Comment on above: Performed By: #### 189-8 #### OMERO KNIGHT ([id number]) [facility] ([facility]) [address] [place] [address] 42265 Basophils/100 WBC (Bld) 0.3 % Normal 0.0-2.0 [facility] Comment on above: Performed By: #### 0-8 #### OMERO KNIGHT ([id number]) [facility] ([facility]) [address] [place] [address] 41766 Eosinophils (Bld) [#/Vol] 0.22 x10*3/uL Normal 0.00-0.40 [facility] Comment on above: Performed By: #### 189-8 #### OMERO KNIGHT ([id number]) [facility] ([facility]) [address] [place] [address] 12850 Eosinophils/100 WBC (Bld) 2.5 % Normal 0.0-6.0 [facility] Comment on above: Performed By: #### 189-8 #### OMERO KNIGHT ([id number]) [facility] ([facility]) [address] [place] [address] 40421 Erythrocyte distribution width (RBC) [Ratio] 16.5 % High 11.5-14.5 [facility] Comment on above: Performed By: #### 189-8 #### OMERO KNIGHT ([id number]) [facility] ([facility]) [address] [place] [address] 33744 Hematocrit (Bld) [Volume fraction] 28.0 % Low 36.0-46.0 [facility] Comment on above: Performed By: #### 189-8 #### OMERO KNIGHT ([id number]) [facility] ([facility]) [address] [place] [address] 22273 Hemoglobin (Bld) [Mass/Vol] 8.7 g/dL Low 12.0-16.0 [facility] Comment on above: Performed By: #### 0-8 #### OMERO KNIGHT ([id number]) [facility] ([facility]) [address] [place] [address] 56893 Immature granulocytes (Bld) [#/Vol] 0.04 x10*3/uL Normal 0.00-0.50 [facility] Comment on above: Performed By: #### 5 0190-8 #### OMERO KNIGHT ([id number]) [facility] ([facility]) [address] [place] [address] 68629 Immature granulocytes/100 WBC (Bld) 0.5 % Normal 0.0-0.9 [facility] Comment on above: Result Comment: Martina ture Granulocyte Count (IG) includes promyelocytes, myelocytes and metamyelocytes but does not include bands. Percent differential counts (%) should be interpreted in the context of the absolute cell counts (cells/UL). Performed By: #### 5 0190-8 #### OMERO KNIGHT ([id number]) [facility] ([facility]) [address] [place] [address] 96845 Lymphocytes (Bld) [#/Vol] 3.01 x10*3/uL High 0.80-3.00 [facility] Comment on above: Performed By: #### 5 0190-8 #### OMERO KNIGHT ([id number]) [facility] ([facility]) [address] [place] [address] 43073 Lymphocytes/100 WBC (Bld) 34.3 % Normal 13.0-44.0 [facility] Comment on above: Performed By: #### 5 0190-8 #### OMERO KNIGHT ([id number]) [facility] ([facility]) [address] [place] [address] 70168 MCH (RBC) [Entitic mass] 26.9 pg Normal 26.0-34.0 [facility] Comment on above: Performed By: #### 5 0190-8 #### OMERO KNIGHT ([id number]) [facility] ([facility]) [address] [place] [address] 34346 MCHC (RBC) [Mass/Vol] 31.1 g/dL Low 32.0-36.0 [facility] Comment on above: Performed By: #### 5 0190-8 #### OMERO KNIGHT ([id number]) [facility] ([facility]) [address] [place] [address] 03286 MCV (RBC) [Entitic vol] 87 fL Normal 80-100 [facility] Comment on above: Performed By: #### 5 0190-8 #### OMERO KNIGHT ([id number]) [facility] ([facility]) [address] [place] [address] 12001 Monocytes (Bld) [#/Vol] 0.77 x10*3/uL Normal 0.05-0.80 [facility] Comment on above: Performed By: #### 5 0190-8 #### OMERO KNIGHT ([id number]) [facility] ([facility]) [address] [place] [address] 94524 Monocytes/100 WBC (Bld) 8.8 % Normal 2.0-10.0 [facility] Comment on above: Performed By: #### 5 0190-8 #### OMERO KNIGHT ([id number]) [facility] ([facility]) [address] [place] [address] 75402 Neutrophils (Bld) [#/Vol] 4.70 x10*3/uL Normal 1.60-5.50 [facility] Comment on above: Result Comment: Perc ent differential counts (%) should be interpreted in the context of the absolute cell counts (cells/uL). Performed By: #### 5 0190-8 #### OMERO KNIGHT ([id number]) [facility] ([facility]) [address] [place] [address] 84931 Neutrophils/100 WBC (Bld) 53.6 % Normal 40.0-80.0 [facility] Comment on above: Performed By: #### 5 0190-8 #### OMERO KNIGHT ([id number]) [facility] ([facility]) [address] [place] [address] 25799 Nucleated RBC/100 WBC (Bld) [Ratio] 0.0 /100 WBCs Normal 0.0-0.0 [facility] Comment on above: Performed By: #### 5 0190-8 #### OMERO KNIGHT ([id number]) [facility] ([facility]) [address] [place] [address] 99505 Platelets (Bld) [#/Vol] 186 x10*3/uL Normal 150-450 [facility] Comment on above: Performed By: #### 5 0190-8 #### OMERO KNIGHT ([id number]) [facility] ([facility]) [address] [place] [address] 41515 RBC (Bld) [#/Vol] 3.23 x10*6/uL Low 4.00-5.20 [facility] Comment on above: Performed By: #### 5 0190-8 #### OMERO KNIGHT ([id number]) [facility] ([facility]) [address] [place] [address] 77418 WBC (Bld) [#/Vol] 8.8 x10*3/uL Normal 4.4-11.3 [facility] Comment on above: Performed By: #### 5 0190-8 #### OMERO KNIGHT ([id number]) [facility] ([facility]) [address] [place] [address] 19512 Glucose Test strip manual (B ld) [Mass/Vol]on 11-18-2023 Glucose [Mass/Vol] 156 mg/dL High 74 - 99 mg/dL [facility] Interpretation and review of laboratory results Abnormal [facility] Glucose [Mass/Vol] 156 mg/dL High 74-99 [facility] Comment on above: Performed By: #### 1 9123-9 #### OMERO KNIGHT ([id number]) [facility] ([facility]) [address] [place] [address] 07899 Glucose [Mass/Vol] 180 mg/dL High 74 - 99 mg/dL [facility] Interpretation and review of laboratory results Abnormal [facility] Glucose [Mass/Vol] 180 mg/dL High 74-99 [facility] Comment on above: Performed By: #### 1 9123-9 #### OMERO KNIGHT ([id number]) [facility] ([facility]) [facility] [place] [address] Glucose [Mass/Vol] 173 mg/dL High 74 - 99 mg/dL [facility] Interpretation and review of laboratory results Abnormal [facility] Glucose [Mass/Vol] 173 mg/dL High 74-99 [facility] Comment on above: Performed By: #### 1 9123-9 #### OMERO KNIGHT ([id number]) [facility] ([facility]) [address] [place] [address] Glucose [Mass/Vol] 130 mg/dL High 74 - 99 mg/dL [facility] Interpretation and review of laboratory results Abnormal [facility] Glucose [Mass/Vol] 130 mg/dL High 74-99 [facility] Comment on above: Performed By: #### 1 9123-9 #### OMERO KNIGHT ([id number]) [facility] ([facility]) [address] [place] [address] Magnesiumon 11-18-2023 Magnesium [Mass/Vol] 1.52 mg/dL Low 1.60 - 2.40 mg/dL [facility] Magnesium [Mass/Vol] 1.52 mg/dL Low 1.60-2.40 [facility] Comment on above: Performed By: #### 5 0190-8 #### OMERO KNIGHT ([id number]) [facility] ([facility]) [address] [place] [address] No Panel Informationon 11-17 Interpretation and review of laboratory results Abnormal [facility] Renal function 2000 panelon 11-18-2023 Albumin BCP dye [Mass/Vol] 2.5 g/dL Low 3.4 - 5.0 g/dL [facility] Anion gap [Moles/Vol] 13 mmol/L 10 - 2 0 mmol/L [facility] Calcium [Mass/Vol] 8.0 mg/dL Low 8.6 - 10. 6 mg/dL [facility] Chloride [Moles/Vol] 98 mmol/L 98 - 10 7 mmol/L [facility] CO2 [Moles/Vol] 30 mmol/L 21 - 32 mmol/L [facility] Creatinine [Mass/Vol] 0.66 mg/dL 0.50 - 1.05 mg/dL [facility] eGFR - PINF [facility] Glucose [Mass/Vol] 126 mg/dL High 74 - 99 mg/dL [facility] Phosphate [Mass/Vol] 2.6 mg/dL 2.5 - 4 .9 mg/dL [facility] Potassium [Moles/Vol] 3.9 mmol/L 3.5 - 5.3 mmol/L [facility] Sodium [Moles/Vol] 137 mmol/L 136 - 145 mmol/L [facility] Urea nitrogen [Mass/Vol] 14 mg/dL 6 - 23 mg/dL [facility] Albumin BCP dye [Mass/Vol] 2.5 g/dL Low 3.4-5.0 [facility] Comment on above: Performed By: #### 5 0190-8 #### OMERO KNIGHT ([id number]) [facility] ([facility]) [address] [place] [address] Anion gap [Moles/Vol] 13 mmol/L Normal 10-20 [facility] Comment on above: Performed By: #### 5 0190-8 #### OMERO KNIGHT ([id number]) [facility] ([facility]) [address] [place] [address] Calcium [Mass/Vol] 8.0 mg/dL Low 8.6-10.6 [facility] Comment on above: Performed By: #### 5 0190-8 #### OMERO KNIGHT ([id number]) [facility] ([facility]) [address] [place] [address] Chloride [Moles/Vol] 98 mmol/L Normal 98-107 [facility] Comment on above: Performed By: #### 5 0190-8 #### OMERO KNIGHT ([id number]) [facility] ([facility]) [address] [place] [address] CO2 [Moles/Vol] 30 mmol/L Normal 21-32 [facility] Comment on above: Performed By: #### 5 0190-8 #### OMERO KNIGHT ([id number]) [facility] ([facility]) [address] [place] [address] 85262 Creatinine [Mass/Vol] 0.66 mg/dL Normal 0.50-1.05 [facility] Comment on above: Performed By: #### 5 0190-8 #### OMERO KNIGHT ([id number]) [facility] ([facility]) [address] [place] [address] 58711 GFR/1.73 sq M.predicted MDRD (S/P/Bld) [Vol rate/Area] mL/min/{1.73_m2} Normal >60 [facility] Comment on above: Result Comment: Calc ulations of estimated GFR are performed using the 2020 CKD-EPI Study Refit equation without the race variable for the IDMS-Traceable creatinine methods. https://jasn.asnjournals.org/content/early//ASN.80652 36475 Performed By: #### 5 0190-8 #### OMERO KNIGHT ([id number]) [facility] ([facility]) [address] [place] [address] 18359 Glucose [Mass/Vol] 126 mg/dL High 74-99 [facility] Comment on above: Performed By: #### 5 0190-8 #### OMERO KNIGHT ([id number]) [facility] ([facility]) [address] [place] [address] 55172 Phosphate [Mass/Vol] 2.6 mg/dL Normal 2.5-4.9 [facility] Comment on above: Result Comment: The performance characteristics of phosphorus testing in heparinized plasma have been validated by the individual laboratory site where testing is performed. Testing on heparinized plasma is not approved by the FDA; however, such approval is not necessary. Performed By: #### 5 0190-8 #### OMERO KNIGHT ([id number]) [facility] ([facility]) [address] [place] [address] 79127 Potassium [Moles/Vol] 3.9 mmol/L Normal 3.5-5.3 [facility] Comment on above: Performed By: #### 5 0190-8 #### OMERO KNIGHT ([id number]) [facility] ([facility]) [address] [place], [place] [id number] Sodium [Moles/Vol] 137 mmol/L Normal 136-145 [facility] Comment on above: Performed By: #### 5 0190-8 #### OMERO KNIGHT ([id number]) [facility] ([facility]) [address] [place], [place] [id number] Urea nitrogen [Mass/Vol] 14 mg/dL Normal 6-23 [facility] Comment on above: Performed By: #### 5 0190-8 #### OMERO KNIGHT ([id number]) [facility] ([facility]) [address] [place] [address] CBC W Auto Differential pane l (Bld)on 11-17-2023 Basophils (Bld) [#/Vol] 0.04 10*3/uL [facility] Basophils/100 WBC (Bld) 0.6 % 0.0 - 2.0 % [facility] Eosinophils (Bld) [#/Vol] 0.11 10*3/uL [facility] Eosinophils/100 WBC (Bld) 1.5 % 0.0 - 6.0 % [facility] Erythrocyte distribution width (RBC) [Ratio] 16.7 % High 11.5 - 14.5 % [facility] Hematocrit (Bld) [Volume fraction] 29.3 % Low 36.0 - 46.0 % [facility] Hemoglobin (Bld) [Mass/Vol] 9.1 g/dL Low 12.0 - 16.0 g/dL [facility] Immature granulocytes (Bld) [#/Vol] 0.09 10*3/uL [facility] Immature granulocytes/100 WBC (Bld) 1.2 % High 0.0 - 0.9 % [facility] Interpretation and review of laboratory results Abnormal [facility] Lymphocytes (Bld) [#/Vol] 2.57 10*3/uL [facility] Lymphocytes/100 WBC (Bld) 35.4 % 13.0 - 44.0 % [facility] MCH (RBC) [Entitic mass] 26.5 pg 26.0 - 34.0 pg [facility] MCHC (RBC) [Mass/Vol] 31.1 g/dL Low 32.0 - 36.0 g/dL [facility] MCV (RBC) [Entitic vol] 85 fL 80 - 100 fL [facility] Monocytes (Bld) [#/Vol] 0.81 10*3/uL High [facility] Monocytes/100 WBC (Bld) 11.2 % 2.0 - 10.0 % [facility] Neutrophils (Bld) [#/Vol] 3.64 10*3/uL [facility] Neutrophils/100 WBC (Bld) 50.1 % 40.0 - 80.0 % [facility] Nucleated RBC/100 WBC (Bld) [Ratio] 0.0 % [facility] Platelets (Bld) [#/Vol] 152 10*3/uL [facility] RBC (Bld) [#/Vol] 3.43 10*6/uL Low [facility] WBC (Bld) [#/Vol] 7.3 10*3/uL [facility] Basophils (Bld) [#/Vol] 0.04 x10*3/uL Normal 0.00-0.10 [facility] Comment on above: Performed By: #### 5 0190-8 #### OMERO KNIGHT ([id number]) [facility] ([facility]) [address] [place] [address] 26794 Basophils/100 WBC (Bld) 0.6 % Normal 0.0-2.0 [facility] Comment on above: Performed By: #### 5 0190-8 #### OMERO KNIGHT ([id number]) [facility] ([facility]) [address] [place] [address] 51494 Eosinophils (Bld) [#/Vol] 0.11 x10*3/uL Normal 0.00-0.40 [facility] Comment on above: Performed By: #### 5 0190-8 #### OMERO KNIGHT ([id number]) [facility] ([facility]) [address] [place] [address] 26228 Eosinophils/100 WBC (Bld) 1.5 % Normal 0.0-6.0 [facility] Comment on above: Performed By: #### 5 0190-8 #### OMERO KNIGHT ([id number]) [facility] ([facility]) [address] [place] [address] 90902 Erythrocyte distribution width (RBC) [Ratio] 16.7 % High 11.5-14.5 [facility] Comment on above: Performed By: #### 5 0-8 #### OMERO KNIGHT ([id number]) [facility] ([facility]) [address] [place] [address] 34672 Hematocrit (Bld) [Volume fraction] 29.3 % Low 36.0-46.0 [facility] Comment on above: Performed By: #### 5 0190-8 #### OMERO KNIGHT ([id number]) [facility] ([facility]) [address] [place] [address] 78071 Hemoglobin (Bld) [Mass/Vol] 9.1 g/dL Low 12.0-16.0 [facility] Comment on above: Performed By: #### 5 0190-8 #### OMERO KNIGHT ([id number]) [facility] ([facility]) [address] [place] [address] 40849 Immature granulocytes (Bld) [#/Vol] 0.09 x10*3/uL Normal 0.00-0.50 [facility] Comment on above: Performed By: #### 5 0190-8 #### OMERO KNIGHT ([id number]) [facility] ([facility]) [address] [place] [address] 37221 Immature granulocytes/100 WBC (Bld) 1.2 % High 0.0-0.9 [facility] Comment on above: Result Comment: Martina ture Granulocyte Count (IG) includes promyelocytes, myelocytes and metamyelocytes but does not include bands. Percent differential counts (%) should be interpreted in the context of the absolute cell counts (cells/UL). Performed By: #### 5 0190-8 #### OMERO KNIGHT ([id number]) [facility] ([facility]) [address] [place] [address] 54575 Lymphocytes (Bld) [#/Vol] 2.57 x10*3/uL Normal 0.80-3.00 [facility] Comment on above: Performed By: #### 5 0190-8 #### OMERO KNIGHT ([id number]) [facility] ([facility]) [address] [place] [address] 10495 Lymphocytes/100 WBC (Bld) 35.4 % Normal 13.0-44.0 [facility] Comment on above: Performed By: #### 189-8 #### OMERO KNIGHT ([id number]) [facility] ([facility]) [address] [place] [address] 32954 MCH (RBC) [Entitic mass] 26.5 pg Normal 26.0-34.0 [facility] Comment on above: Performed By: #### 189-8 #### OMERO KNIGHT ([id number]) [facility] ([facility]) [address] [place] [address] 76521 MCHC (RBC) [Mass/Vol] 31.1 g/dL Low 32.0-36.0 [facility] Comment on above: Performed By: #### 0190-8 #### OMREO KNIGHT ([id number]) [facility] ([facility]) [address] [place] [address] 72465 MCV (RBC) [Entitic vol] 85 fL Normal 80-100 [facility] Comment on above: Performed By: #### 0-8 #### OMERO KNIGHT ([id number]) [facility] ([facility]) [address] [place] [address] 87805 Monocytes (Bld) [#/Vol] 0.81 x10*3/uL High 0.05-0.80 [facility] Comment on above: Performed By: #### 5 0190-8 #### OMERO KNIGHT (33698) [facility] ([facility]) [address] [place] [address] 40869 Monocytes/100 WBC (Bld) 11.2 % Normal 2.0-10.0 [facility] Comment on above: Performed By: #### 5 0190-8 #### OMERO KNIGHT ([id number]) [facility] ([facility]) [address] [place] [address] 82780 Neutrophils (Bld) [#/Vol] 3.64 x10*3/uL Normal 1.60-5.50 [facility] Comment on above: Result Comment: Perc ent differential counts (%) should be interpreted in the context of the absolute cell counts (cells/uL). Performed By: #### 5 0190-8 #### OMERO KNIGHT ([id number]) [facility] ([facility]) [address] [place] [address] 44673 Neutrophils/100 WBC (Bld) 50.1 % Normal 40.0-80.0 [facility] Comment on above: Performed By: #### 5 0190-8 #### OMERO KNIGHT ([id number]) [facility] ([facility]) [address] [place] [address] 22878 Nucleated RBC/100 WBC (Bld) [Ratio] 0.0 /100 WBCs Normal 0.0-0.0 [facility] Comment on above: Performed By: #### 5 0190-8 #### OMERO KNIGHT ([id number]) [facility] ([facility]) [address] [place] [address] 73986 Platelets (Bld) [#/Vol] 152 x10*3/uL Normal 150-450 [facility] Comment on above: Performed By: #### 5 0190-8 #### OMERO KNIGHT ([id number]) [facility] ([facility]) [address] [place] [address] 43797 RBC (Bld) [#/Vol] 3.43 x10*6/uL Low 4.00-5.20 [facility] Comment on above: Performed By: #### 5 0190-8 #### OMERO KNIGHT ([id number]) [facility] ([facility]) [address] [place] [address] [id number] WBC (Bld) [#/Vol] 7.3 x10*3/uL Normal 4.4-11.3 [facility] Comment on above: Performed By: #### 5 0190-8 #### OMERO KNIGHT ([id number]) [facility] ([facility]) [address] [place] [id number] Glucose Test strip manual (B ld) [Mass/Vol]on 11-17-2023 Glucose [Mass/Vol] 169 mg/dL High 74 - 99 mg/dL [facility] Interpretation and review of laboratory results Abnormal [facility] Glucose [Mass/Vol] 169 mg/dL High 74-99 [facility] Comment on above: Performed By: #### 5 0190-8 #### OMERO KNIGHT ([id number]) [facility] [facility] ([facility]) [address] [place] [address] 07445 Glucose [Mass/Vol] 134 mg/dL High 74 - 99 mg/dL [facility] Interpretation and review of laboratory results Abnormal [facility] Glucose [Mass/Vol] 134 mg/dL High 74-99 [facility] Comment on above: Performed By: #### 5 0-8 #### OMERO KNIGHT ([id number]) [facility] ([facility]) [address] [place] [address] 67206 Glucose [Mass/Vol] 152 mg/dL High 74 - 99 mg/dL [facility] Interpretation and review of laboratory results Abnormal [facility] Glucose [Mass/Vol] 152 mg/dL High 74-99 [facility] Comment on above: Performed By: #### 5 0190-8 #### OMERO KNIGHT ([id number]) [facility] ([facility]) [address] [place] [address] 41674 Glucose [Mass/Vol] 157 mg/dL High 74 - 99 mg/dL [facility] Interpretation and review of laboratory results Abnormal [facility] Glucose [Mass/Vol] 157 mg/dL High 74-99 [facility] Comment on above: Performed By: #### 5 0190-8 ###Chuyita KNIGHT ([id number]) [facility] ([facility]) [address] [place] [address] Magnesiumon 11-17-2023 Magnesium [Mass/Vol] 1.47 mg/dL Low 1.60 - 2.40 mg/dL [facility] Magnesium [Mass/Vol] 1.47 mg/dL Low 1.60-2.40 [facility] Comment on above: Performed By: #### 5 0190-8 #### OMERO KNIGHT ([id number]) [facility] ([facility]) [address] [place] [address] No Panel Informationon 11-16 Interpretation and review of laboratory results Abnormal [facility] Renal function 2000 panelon 11-17-2023 Albumin BCP dye [Mass/Vol] 2.4 g/dL Low 3.4 - 5.0 g/dL [facility] Anion gap [Moles/Vol] 11 mmol/L 10 - 2 0 mmol/L [facility] Calcium [Mass/Vol] 7.6 mg/dL Low 8.6 - 10. 6 mg/dL [facility] Chloride [Moles/Vol] 99 mmol/L 98 - 10 7 mmol/L [facility] CO2 [Moles/Vol] 31 mmol/L 21 - 32 mmol/L [facility] Creatinine [Mass/Vol] 0.63 mg/dL 0.50 - 1.05 mg/dL [facility] eGFR - PINF [facility] Glucose [Mass/Vol] 130 mg/dL High 74 - 99 mg/dL [facility] Phosphate [Mass/Vol] 2.9 mg/dL 2.5 - 4 .9 mg/dL [facility] Potassium [Moles/Vol] 4.0 mmol/L 3.5 - 5.3 mmol/L [facility] Sodium [Moles/Vol] 137 mmol/L 136 - 145 mmol/L [facility] Urea nitrogen [Mass/Vol] 14 mg/dL 6 - 23 mg/dL [facility] Albumin BCP dye [Mass/Vol] 2.4 g/dL Low 3.4-5.0 [facility] Comment on above: Performed By: #### 5 0190-8 #### OMERO KNIGHT (19681) [facility] ([facility]) [facility] [place] [address] Anion gap [Moles/Vol] 11 mmol/L Normal 10-20 [facility] Comment on above: Performed By: #### 5 0190-8 #### OMERO KNIGHT ([id number]) [facility] ([facility]) [address] [place] [address] 27810 Calcium [Mass/Vol] 7.6 mg/dL Low 8.6-10.6 [facility] Comment on above: Performed By: #### 5 0190-8 #### OMERO KNIGHT ([id number]) [facility] ([facility]) [address] [place] [address] 50993 Chloride [Moles/Vol] 99 mmol/L Normal 98-107 [facility] Comment on above: Performed By: #### 5 0190-8 #### OMERO KNIGHT ([id number]) [facility] ([facility]) [address] [place] [address] 69662 CO2 [Moles/Vol] 31 mmol/L Normal 21-32 [facility] Comment on above: Performed By: #### 5 0190-8 #### OMERO KNIGHT ([id number]) [facility] ([facility]) [address] [place] [address] 51829 Creatinine [Mass/Vol] 0.63 mg/dL Normal 0.50-1.05 [facility] Comment on above: Performed By: #### 5 0190-8 #### OMERO KNIGHT ([id number]) [facility] ([facility]) [address] [place] [address] 64756 GFR/1.73 sq M.predicted MDRD (S/P/Bld) [Vol rate/Area] mL/min/{1.73_m2} Normal >60 [facility] Comment on above: Result Comment: Calc ulations of estimated GFR are performed using the 2020 CKD-EPI Study Refit equation without the race variable for the IDMS-Traceable creatinine methods. https://jasn.asnjournals.org/content/early//ASN.74148 35455 Performed By: #### 5 0190-8 #### OMERO KNIGHT ([id number]) [facility] ([facility]) [address] [place] [address] 98781 Glucose [Mass/Vol] 130 mg/dL High 74-99 [facility] Comment on above: Performed By: #### 5 0190-8 #### OMERO KNIGHT ([id number]) [facility] ([facility]) [address] [place] [address] 07638 Phosphate [Mass/Vol] 2.9 mg/dL Normal 2.5-4.9 [facility] Comment on above: Result Comment: The performance characteristics of phosphorus testing in heparinized plasma have been validated by the individual laboratory site where testing is performed. Testing on heparinized plasma is not approved by the FDA; however, such approval is not necessary. Performed By: #### 5 0190-8 #### OMERO KNIGHT ([id number]) [facility] ([facility]) [address] [place] [address] 25567 Potassium [Moles/Vol] 4.0 mmol/L Normal 3.5-5.3 [facility] Comment on above: Performed By: #### 5 0190-8 #### OMERO KNIGHT ([id number]) [facility] ([facility]) [address] [place] [address] 09199 Sodium [Moles/Vol] 137 mmol/L Normal 136-145 [facility] Comment on above: Performed By: #### 5 0190-8 #### OMERO KNIGHT ([id number]) [facility] ([facility]) [address] [place] [address] 52272 Urea nitrogen [Mass/Vol] 14 mg/dL Normal 6-23 [facility] Comment on above: Performed By: #### 5 0190-8 #### OMERO KNIGHT ([id number]) [facility] ([facility]) [address] [place] [address] 18256 XR Chest Single viewon 11-16 UH MMODAL UH MMODAL [facility] Work Phone: XR Chest Single viewOrdered By: Pastor Barrientos on 11-17-2023 [facility] Work Phone: Bacteria identified Cx Nom ( Unsp spec)on 11-16-2023 Microscopic observation Gram stain Nom (Unsp spec) No polymorphonuclear leukocytes seen [facility] Work Phone: [phone] Microscopic observation Gram stain Nom (Unsp spec) No organisms seen [facility] Work Phone: [phone] [facility] Work Phone: [phone] Microscopic observation Gram stain Nom (Unsp spec) No polymorphonuclear leukocytes seen [facility] Work Phone: Microscopic observation Gram stain Nom (Unsp spec) No organisms seen [facility] Work Phone: [phone] [facility] Work Phone: [phone] Bedside PICC Imagingon 11-15 IMAGING CBC panel Auto (Bld)on 11-15 Erythrocyte distribution width (RBC) [Ratio] 16.5 % High 11.5 - 14.5 % [facility] Hematocrit (Bld) [Volume fraction] 29.4 % Low 36.0 - 46.0 % [facility] Hemoglobin (Bld) [Mass/Vol] 9.1 g/dL Low 12.0 - 16.0 g/dL [facility] Interpretation and review of laboratory results Abnormal [facility] MCH (RBC) [Entitic mass] 27.0 pg 26.0 - 34.0 pg [facility] MCHC (RBC) [Mass/Vol] 31.0 g/dL Low 32.0 - 36.0 g/dL [facility] MCV (RBC) [Entitic vol] 87 fL 80 - 100 fL [facility] Nucleated RBC/100 WBC (Bld) [Ratio] 0.0 % [facility] Platelets (Bld) [#/Vol] 192 10*3/uL [facility] RBC (Bld) [#/Vol] 3.37 10*6/uL [facility] WBC (Bld) [#/Vol] 9.6 10*3/uL [facility] Erythrocyte distribution width (RBC) [Ratio] 16.5 % High 11.5-14.5 [facility] Comment on above: Performed By: #### 2 276-4 #### OMERO KNIGHT ([id number]) [facility] ([facility]) [address] [place] [address] 58918 Hematocrit (Bld) [Volume fraction] 29.4 % Low 36.0-46.0 [facility] Comment on above: Performed By: #### 2 276-4 #### OMERO KNIGHT (40125) [facility] ([facility]) [address] [place] [address] 07756 Hemoglobin (Bld) [Mass/Vol] 9.1 g/dL Low 12.0-16.0 [facility] Comment on above: Performed By: #### 2 276-4 #### OMERO KNIGHT ([id number]) [facility] ([facility]) [address] [place] [address] 53547 MCH (RBC) [Entitic mass] 27.0 pg Normal 26.0-34.0 [facility] Comment on above: Performed By: #### 2 276-4 #### OMERO KNIGHT ([id number]) [facility] ([facility]) [address] [place] [address] 56412 MCHC (RBC) [Mass/Vol] 31.0 g/dL Low 32.0-36.0 [facility] Comment on above: Performed By: #### 2 276-4 #### OMERO KNIGHT ([id number]) [facility] ([facility]) [address] [place] [address] 58841 MCV (RBC) [Entitic vol] 87 fL Normal 80-100 [facility] Comment on above: Performed By: #### 2 276-4 #### OMERO KNIGHT ([id number]) [facility] ([facility]) [address] [place] [address] 68169 Nucleated RBC/100 WBC (Bld) [Ratio] 0.0 /100 WBCs Normal 0.0-0.0 [facility] Comment on above: Performed By: #### 2 276-4 #### OMERO KNIGHT ([id number]) [facility] ([facility]) [address] [place] [address] 79609 Platelets (Bld) [#/Vol] 192 x10*3/uL Normal 150-450 [facility] Comment on above: Performed By: #### 2 276-4 #### OMERO KNIGHT ([id number]) [facility] ([facility]) [address] [place], [place] [id number] RBC (Bld) [#/Vol] 3.37 x10*6/uL Low 4.00-5.20 [facility] Comment on above: Performed By: #### 2 276-4 #### OMERO KNIGHT ([id number]) [facility] ([facility]) [address] [place] [address] 30983 WBC (Bld) [#/Vol] 9.6 x10*3/uL Normal 4.4-11.3 [facility] Comment on above: Performed By: #### 2 276-4 #### OMERO KNIGHT ([id number]) [facility] ([facility]) [address] [place] [address] Glucose Test strip manual (B ld) [Mass/Vol]on 11-16-2023 Glucose [Mass/Vol] 164 mg/dL High 74 - 99 mg/dL [facility] Interpretation and review of laboratory results Abnormal [facility] Glucose [Mass/Vol] 164 mg/dL High 74-99 [facility] Comment on above: Performed By: #### 2 276-4 #### OMERO KNIGHT ([id number]) [facility] ([facility]) [address] [place] [address] 18579 Glucose [Mass/Vol] 168 mg/dL High 74 - 99 mg/dL [facility] Interpretation and review of laboratory results Abnormal [facility] Glucose [Mass/Vol] 168 mg/dL High 74-99 [facility] Comment on above: Performed By: #### 2 276-4 #### OMERO KNIGHT ([id number]) [facility] ([facility]) [facility] [place] [address] Glucose [Mass/Vol] 165 mg/dL High 74 - 99 mg/dL [facility] Interpretation and review of laboratory results Abnormal [facility] Glucose [Mass/Vol] 165 mg/dL High 74-99 [facility] Comment on above: Performed By: #### 2 276-4 #### OMERO KNIGHT ([id number]) [facility] ([facility]) [address] [place] [address] 43417 Glucose [Mass/Vol] 125 mg/dL High 74 - 99 mg/dL [facility] Interpretation and review of laboratory results Abnormal [facility] Glucose [Mass/Vol] 125 mg/dL High 74-99 [facility] Comment on above: Performed By: #### 2 276-4 #### OMERO KNIGHT (80784) [facility] ([facility]) [address] [place] [address] 22124 Magnesiumon 11-16-2023 Magnesium [Mass/Vol] 1.76 mg/dL 1.60 - 2.40 mg/dL [facility] Magnesium [Mass/Vol] 1.76 mg/dL Normal 1.60-2.40 [facility] Comment on above: Performed By: #### 2 276-4 #### OMERO KNIGHT ([id number]) [facility] ([facility]) [address] [place] [address] 75751 Magnesium [Mass/Vol]on 11-15 Interpretation and review of laboratory results Normal [facility] No Panel Informationon 11-15 [facility] PICC >5 YR BEDSIDE IMAGINGon 11-16-2023 PICC >5 YR BEDSIDE IMAGING These images are not reportable by radiology and will not be interpreted by Radiologists. Normal [facility] Renal function 2000 panelon 11-16-2023 Albumin BCP dye [Mass/Vol] 2.7 g/dL Low 3.4 - 5.0 g/dL [facility] Anion gap [Moles/Vol] 12 mmol/L 10 - 2 0 mmol/L [facility] Calcium [Mass/Vol] 8.4 mg/dL Low 8.6 - 10. 6 mg/dL [facility] Chloride [Moles/Vol] 97 mmol/L Low 98 - 10 7 mmol/L [facility] CO2 [Moles/Vol] 31 mmol/L 21 - 32 mmol/L [facility] Creatinine [Mass/Vol] 0.77 mg/dL 0.50 - 1.05 mg/dL [facility] GFR/1.73 sq M.predicted among non-blacks MDRD (S/P/Bld) [Vol rate/Area] 81 mL/min/{1.73_m2} - PINF [facility] Glucose [Mass/Vol] 141 mg/dL High 74 - 99 mg/dL [facility] Interpretation and review of laboratory results Abnormal [facility] Phosphate [Mass/Vol] 2.0 mg/dL Low 2.5 - 4 .9 mg/dL [facility] Potassium [Moles/Vol] 3.3 mmol/L Low 3.5 - 5.3 mmol/L [facility] Sodium [Moles/Vol] 137 mmol/L 136 - 145 mmol/L [facility] Urea nitrogen [Mass/Vol] 17 mg/dL 6 - 23 mg/dL [facility] Albumin BCP dye [Mass/Vol] 2.7 g/dL Low 3.4-5.0 [facility] Comment on above: Performed By: #### 2 276-4 #### OMERO KNIGHT ([id number]) [facility] ([facility]) [address] [place] [address] 25217 Anion gap [Moles/Vol] 12 mmol/L Normal 10-20 [facility] Comment on above: Performed By: #### 2 276-4 #### OMERO KNIGHT (70038) [facility] ([facility]) [address] [place] [address] 68717 Calcium [Mass/Vol] 8.4 mg/dL Low 8.6-10.6 [facility] Comment on above: Performed By: #### 2 276-4 #### OMERO KNIGHT (48307) [facility] ([facility]) [address] [place] [address] Chloride [Moles/Vol] 97 mmol/L Low 98-107 [facility] Comment on above: Performed By: #### 2 276-4 #### OMERO KNIGHT (12527) [facility] ([facility]) [address] [place] [address] CO2 [Moles/Vol] 31 mmol/L Normal 21-32 [facility] Comment on above: Performed By: #### 2 276-4 #### OMERO KNIGHT ([id number]) [facility] ([facility]) [address] [place] [address] 79178 Creatinine [Mass/Vol] 0.77 mg/dL Normal 0.50-1.05 [facility] Comment on above: Performed By: #### 2 276-4 #### OMERO KNIGHT ([id number]) [facility] ([facility]) [address] [place] [address] 25383 Glomerular filtration rate/1.73 sq M.predicted 81 mL/min/1.73m*2 Normal >60 [facility] Comment on above: Result Comment: Calc ulations of estimated GFR are performed using the 2020 CKD-EPI Study Refit equation without the race variable for the IDMS-Traceable creatinine methods. https://jasn.asnjournals.org/content/early//ASN.45863 88405 Performed By: #### 2 276-4 #### OMERO KNIGHT ([id number]) [facility] ([facility]) [address] [place] [address] 46128 Glucose [Mass/Vol] 141 mg/dL High 74-99 [facility] Comment on above: Performed By: #### 2 276-4 #### OMERO KNIGHT (12885) [facility] ([facility]) [address] [place] [address] 59406 Phosphate [Mass/Vol] 2.0 mg/dL Low 2.5-4.9 [facility] Comment on above: Result Comment: The performance characteristics of phosphorus testing in heparinized plasma have been validated by the individual laboratory site where testing is performed. Testing on heparinized plasma is not approved by the FDA; however, such approval is not necessary. Performed By: #### 2 276-4 #### OMERO KNIGHT (52963) [facility] ([facility]) [address] [place] [address] Potassium [Moles/Vol] 3.3 mmol/L Low 3.5-5.3 [facility] Comment on above: Performed By: #### 2 276-4 #### OMERO KNIGHT (54375) [facility] ([facility]) [address] [place] [address] Sodium [Moles/Vol] 137 mmol/L Normal 136-145 [facility] Comment on above: Performed By: #### 2 276-4 #### OMERO KNIGHT ([id number]) [facility] ([facility]) [facility] [place] [address] Urea nitrogen [Mass/Vol] 17 mg/dL Normal 6-23 [facility] Comment on above: Performed By: #### 2 276-4 #### OMERO KNIGHT ([id number]) [facility] ([facility]) [facility] [place] [address] Tissue/Wound Culture/Smearon 11-16-2023 Bacteria identified Cx Nom (Unsp spec) No growth aerobically and anaerobically [facility] Work Phone: Bacteria identified Cx Nom (Unsp spec) No growth aerobically and anaerobically [facility] Work Phone: XR CHEST 1 VIEWon 11-16-2023 XR CHEST 1 VIEW Interpreted By: Pastor Chowdhury and Niraj Moreno STUDY: XR CHEST 1 VIEW; 11/16/2023 5:05 pm INDICATION: Signs/Symptoms:PICC PLACEMENT. COMPARISON: 11/13/2023 chest radiograph ACCESSION NUMBER(S): [id number] ORDERING CLINICIAN: RU ORTEGA FINDINGS: AP radiograph [...] as stated. This study was interpreted at [facility], [place], [place]. MACRO: None Signed by: Pastor Barrientos 11/17/2023 6:46 AM Dictation workstation: [id number] Normal [facility] XR Chest Single viewon 11-15 Radiology Study observation (narrative) [facility] Work Phone: Bacteria identified Cx Nom ( Unsp spec)Ordered By: Betty Hutchins on 11-15-2023 Microscopic observation Gram stain Nom (Unsp spec) (1+) Rare Polymorphonuclear leukocytes [facility] Microscopic observation Gram stain Nom (Unsp spec) No organisms seen [facility] CBC panel Auto (Bld)on 11-14 Erythrocyte distribution width (RBC) [Ratio] 16.2 % High 11.5 - 14.5 % [facility] Hematocrit (Bld) [Volume fraction] 31.4 % Low 36.0 - 46.0 % [facility] Hemoglobin (Bld) [Mass/Vol] 9.8 g/dL Low 12.0 - 16.0 g/dL [facility] Interpretation and review of laboratory results Abnormal [facility] MCH (RBC) [Entitic mass] 26.8 pg 26.0 - 34.0 pg [facility] MCHC (RBC) [Mass/Vol] 31.2 g/dL Low 32.0 - 36.0 g/dL [facility] MCV (RBC) [Entitic vol] 86 fL 80 - 100 fL [facility] Nucleated RBC/100 WBC (Bld) [Ratio] 0.0 % [facility] Platelets (Bld) [#/Vol] 234 10*3/uL [facility] RBC (Bld) [#/Vol] 3.65 10*6/uL Low [facility] WBC (Bld) [#/Vol] 10.9 10*3/uL [facility] Erythrocyte distribution width (RBC) [Ratio] 16.2 % High 11.5-14.5 [facility] Comment on above: Performed By: #### 2 4323-8 #### OMERO KNIGHT ([id number]) [facility] ([facility]) [address] [place] [address] 56818 Hematocrit (Bld) [Volume fraction] 31.4 % Low 36.0-46.0 [facility] Comment on above: Performed By: #### 2 4323-8 #### OMERO KNIGHT (82034) [facility] ([facility]) [address] [place] [address] 83695 Hemoglobin (Bld) [Mass/Vol] 9.8 g/dL Low 12.0-16.0 [facility] Comment on above: Performed By: #### 2 4323-8 #### OMERO KNIGHT (04906) [facility] ([facility]) [address] [place] [address] 85807 MCH (RBC) [Entitic mass] 26.8 pg Normal 26.0-34.0 [facility] Comment on above: Performed By: #### 2 4323-8 #### OMERO KNIGHT (97500) [facility] ([facility]) [address] [place] [address] 71428 MCHC (RBC) [Mass/Vol] 31.2 g/dL Low 32.0-36.0 [facility] Comment on above: Performed By: #### 2 4323-8 #### OMERO KNIGHT (13857) [facility] ([facility]) [address] [place] [address] 44438 MCV (RBC) [Entitic vol] 86 fL Normal 80-100 [facility] Comment on above: Performed By: #### 2 4323-8 #### OMERO KNIGHT ([id number]) [facility] ([facility]) [address] [place] [address] 35390 Nucleated RBC/100 WBC (Bld) [Ratio] 0.0 /100 WBCs Normal 0.0-0.0 [facility] Comment on above: Performed By: #### 2 4323-8 #### OMERO KNIGHT (70755) [facility] ([facility]) [address] [place] [address] 47055 Platelets (Bld) [#/Vol] 234 x10*3/uL Normal 150-450 [facility] Comment on above: Performed By: #### 2 4323-8 #### OMERO KNIGHT (30562) [facility] ([facility]) [address] [place] [address] 62154 RBC (Bld) [#/Vol] 3.65 x10*6/uL Low 4.00-5.20 [facility] Comment on above: Performed By: #### 2 4323-8 #### OMERO KNIGHT (54058) [facility] ([facility]) [address] [place] [address] 62560 WBC (Bld) [#/Vol] 10.9 x10*3/uL Normal 4.4-11.3 [facility] Comment on above: Performed By: #### 2 4323-8 #### OMERO KNIGHT (96791) [facility] ([facility]) [address] [place] [address] 64896 ECG 12 LeadOrdered By: Fabio Bee on 11-15-2023 Atrial Rate 73 BPM [facility] Work Phone: P [place] -24 degrees [facility] Work Phone: [phone] P Offset 148 ms [facility] Work Phone: [phone] P Onset 107 ms [facility] Work Phone: [phone] UT Interval 196 ms [facility] Work Phone: Q Onset 205 ms [facility] Work Phone: QRS Count 12 beats [facility] Work Phone: QRS Duration 106 ms [facility] Work Phone: [phone] QT Interval 384 ms [facility] Work Phone: QTC Calculation([place]) 423 [facility] Work Phone: [phone] QTC Fredericia 410 [facility] Work Phone: [phone] R [place] -46 degrees [facility] Work Phone: [phone] T [place] -41 degrees [facility] Work Phone: [phone] T Offset 397 ms [facility] Work Phone: [phone] Ventricular Rate 73 BPM [facility] Work Phone: [phone] [facility] Work Phone: [phone] ECG 12 Leadon 11-15-2023 [facility] Work Phone: Glucose Test strip manual (B ld) [Mass/Vol]on 11-15-2023 Glucose [Mass/Vol] 156 mg/dL High 74 - 99 mg/dL [facility] Interpretation and review of laboratory results Abnormal [facility] Glucose [Mass/Vol] 156 mg/dL High 74-99 [facility] Comment on above: Performed By: #### 2 276-4 #### OMERO KNIGHT ([id number]) [facility] ([facility]) [address] [place] [address] 31349 Glucose [Mass/Vol] 176 mg/dL High 74 - 99 mg/dL [facility] Interpretation and review of laboratory results Abnormal [facility] Glucose [Mass/Vol] 176 mg/dL High 74-99 [facility] Comment on above: Performed By: #### 2 4323-8 #### OMERO KNIGHT ([id number]) [facility] ([facility]) [address] [place] [address] 71226 Glucose [Mass/Vol] 166 mg/dL High 74 - 99 mg/dL [facility] Interpretation and review of laboratory results Abnormal [facility] Glucose [Mass/Vol] 166 mg/dL High 74-99 [facility] Comment on above: Performed By: #### 2 4323-8 #### OMERO KNIGHT ([id number]) [facility] ([facility]) [address] [place] [address] 12237 Glucose [Mass/Vol] 138 mg/dL High 74 - 99 mg/dL [facility] Interpretation and review of laboratory results Abnormal [facility] Glucose [Mass/Vol] 138 mg/dL High 74-99 [facility] Comment on above: Performed By: #### 2 4323-8 #### OMERO KNIGHT ([id number]) [facility] ([facility]) [address] [place] [address] 87430 Magnesiumon 11-15-2023 Magnesium [Mass/Vol] 1.36 mg/dL Low 1.60 - 2.40 mg/dL [facility] Magnesium [Mass/Vol] 1.36 mg/dL Low 1.60-2.40 [facility] Comment on above: Performed By: #### 2 4323-8 #### OMERO KNIGHT ([id number]) [facility] ([facility]) [address] [place], [place] [id number] No Panel Informationon 11-14 Blood Expiration Date 12/11/2023 11:59:00 PM EDT [facility] Dispense Status RE [facility] PRODUCT BLOOD TYPE 5100 [facility] PRODUCT CODE [id number] [facility] Unit ABO O [facility] RH Positive [facility] UNIT VOLUME 350 [facility] XM INTEP COMP [facility] Interpretation and review of laboratory results Abnormal [facility] Prepare RBC: 4 Unitson 11-14 Blood Expiration Date 12/12/2023 11:59:00 PM EDT [facility] PRODUCT CODE [id number] [facility] Unit Number [id number] [facility] Unit Number [id number] [facility] Unit Number [id number] [facility] Unit Number [id number] [facility] UNIT VOLUME 288 [facility] Renal function 2000 panelon 11-15-2023 Albumin BCP dye [Mass/Vol] 2.6 g/dL Low 3.4 - 5.0 g/dL [facility] Anion gap [Moles/Vol] 14 mmol/L 10 - 2 0 mmol/L [facility] Calcium [Mass/Vol] 8.1 mg/dL Low 8.6 - 10. 6 mg/dL [facility] Chloride [Moles/Vol] 96 mmol/L Low 98 - 10 7 mmol/L [facility] CO2 [Moles/Vol] 29 mmol/L 21 - 32 mmol/L [facility] Creatinine [Mass/Vol] 0.95 mg/dL 0.50 - 1.05 mg/dL [facility] GFR/1.73 sq M.predicted among non-blacks MDRD (S/P/Bld) [Vol rate/Area] 63 mL/min/{1.73_m2} - PINF [facility] Glucose [Mass/Vol] 183 mg/dL High 74 - 99 mg/dL [facility] Phosphate [Mass/Vol] 3.1 mg/dL 2.5 - 4 .9 mg/dL [facility] Potassium [Moles/Vol] 3.8 mmol/L 3.5 - 5.3 mmol/L [facility] Sodium [Moles/Vol] 135 mmol/L Low 136 - 145 mmol/L [facility] Urea nitrogen [Mass/Vol] 20 mg/dL 6 - 23 mg/dL [facility] Albumin BCP dye [Mass/Vol] 2.6 g/dL Low 3.4-5.0 [facility] Comment on above: Performed By: #### 2 4323-8 #### JAMIL EUGENE ([id number]) [facility] ([facility]) [address] [place] [address] Anion gap [Moles/Vol] 14 mmol/L Normal 10-20 [facility] Comment on above: Performed By: #### 2 4323-8 #### OMERO KNIGHT ([id number]) [facility] ([facility]) [address] [place] [address] Calcium [Mass/Vol] 8.1 mg/dL Low 8.6-10.6 [facility] Comment on above: Performed By: #### 2 4323-8 #### OMERO KNIGHT ([id number]) [facility] ([facility]) [address] [place] [address] 42950 Chloride [Moles/Vol] 96 mmol/L Low 98-107 [facility] Comment on above: Performed By: #### 2 4323-8 #### OMERO KNIGHT ([id number]) [facility] ([facility]) [address] [place] [address] 67772 CO2 [Moles/Vol] 29 mmol/L Normal 21-32 [facility] Comment on above: Performed By: #### 2 4323-8 #### OMERO KNIGHT ([id number]) [facility] ([facility]) [address] [place] [address] 88502 Creatinine [Mass/Vol] 0.95 mg/dL Normal 0.50-1.05 [facility] Comment on above: Performed By: #### 2 4323-8 #### OMERO KNIGHT ([id number]) [facility] ([facility]) [address] [place] [address] 76604 Glomerular filtration rate/1.73 sq M.predicted 63 mL/min/1.73m*2 Normal >60 [facility] Comment on above: Result Comment: Calc ulations of estimated GFR are performed using the 2020 CKD-EPI Study Refit equation without the race variable for the IDMS-Traceable creatinine methods. https://jasn.asnjournals.org/content//ASN.63704 66383 Performed By: #### 2 4323-8 #### OMERO KNIGHT ([id number]) [facility] ([facility]) [address] [place] [address] Glucose [Mass/Vol] 183 mg/dL High 74-99 [facility] Comment on above: Performed By: #### 2 4323-8 #### OMERO KNIGHT ([id number]) [facility] ([facility]) [facility] [place] [address] Phosphate [Mass/Vol] 3.1 mg/dL Normal 2.5-4.9 [facility] Comment on above: Result Comment: The performance characteristics of phosphorus testing in heparinized plasma have been validated by the individual laboratory site where testing is performed. Testing on heparinized plasma is not approved by the FDA; however, such approval is not necessary. Performed By: #### 2 4323-8 #### OMERO KNIGHT ([id number]) [facility] ([facility]) [address] [place] [address] 95730 Potassium [Moles/Vol] 3.8 mmol/L Normal 3.5-5.3 [facility] Comment on above: Performed By: #### 2 4323-8 #### OMERO KNIGHT ([id number]) [facility] ([facility]) [address] [place] [address] 66459 Sodium [Moles/Vol] 135 mmol/L Low 136-145 [facility] Comment on above: Performed By: #### 2 4323-8 #### OMERO KNIGHT ([id number]) [facility] ([facility]) [address] [place] [address] 70762 Urea nitrogen [Mass/Vol] 20 mg/dL Normal 6-23 [facility] Comment on above: Performed By: #### 2 4323-8 #### OMERO KNIGHT ([id number]) [facility] ([facility]) [address] [place] [address] 98658 Tissue/Wound Culture/SmearOr dered By: Betty Hutchins on 11-15-2023 Bacteria identified Cx Nom (Unsp spec) No growth aerobically and anaerobically [facility] Bacteria identifiedon 2023 Bacteria identified Cx Nom (Unsp spec) Test: Tissue/Wound Culture/Smear Specimen Source: SP[facility] Specimen Type: Swab Specimen Date: 11/14/20231754 Result Date: 11/16/2023 1431 Result Status: Final result Resulting Lab: [facility] [address] [place] [address] CULTURE No growth aerobically and anaerobically STAIN No polymorphonuclear leukocytes seen No organisms seen Normal [facility] Comment on above: Performed By: #### 2 7793-8 #### OMERO KNIGHT ([id number]) [facility] ([facility]) [address] [place] [address] Bacteria identified Cx Nom (Unsp spec) Test: Tissue/Wound Culture/Smear Specimen Source: SPINE Specimen Type: Swab Specimen Date: 11/14/20231732 Result Date: 11/16/2023 1200 Result Status: Final result Resulting Lab: [facility] [address] [place] [address] CULTURE No growth aerobically and anaerobically STAIN No polymorphonuclear leukocytes seen No organisms seen Normal [facility] Comment on above: Performed By: #### 2 4323-8 #### OMERO KNIGHT ([id number]) [facility] ([facility]) [address] [place] [address] CBC panel Auto (Bld)on 11-13 Erythrocyte distribution width (RBC) [Ratio] 15.9 % High 11.5 - 14.5 % [facility] Hematocrit (Bld) [Volume fraction] 34.8 % Low 36.0 - 46.0 % [facility] Hemoglobin (Bld) [Mass/Vol] 10.5 g/dL Low 12.0 - 16.0 g/dL [facility] Interpretation and review of laboratory results Abnormal [facility] MCH (RBC) [Entitic mass] 25.9 pg Low 26.0 - 34.0 pg [facility] MCHC (RBC) [Mass/Vol] 30.2 g/dL Low 32.0 - 36.0 g/dL [facility] MCV (RBC) [Entitic vol] 86 fL 80 - 100 fL [facility] Nucleated RBC/100 WBC (Bld) [Ratio] 0.0 % [facility] Platelets (Bld) [#/Vol] 190 10*3/uL [facility] RBC (Bld) [#/Vol] 4.06 10*6/uL [facility] WBC (Bld) [#/Vol] 6.4 10*3/uL [facility] Erythrocyte distribution width (RBC) [Ratio] 15.9 % High 11.5-14.5 [facility] Comment on above: Performed By: #### 5 8410-2 #### OMERO KNIGHT ([id number]) [facility] ([facility]) [address] [place] [address] 17481 Hematocrit (Bld) [Volume fraction] 34.8 % Low 36.0-46.0 [facility] Comment on above: Performed By: #### 5 8410-2 #### OMERO KNIGHT ([id number]) [facility] ([facility]) [address] [place] [address] 44302 Hemoglobin (Bld) [Mass/Vol] 10.5 g/dL Low 12.0-16.0 [facility] Comment on above: Performed By: #### 5 8410-2 #### OMERO KNIGHT ([id number]) [facility] ([facility]) [address] [place] [address] 26339 MCH (RBC) [Entitic mass] 25.9 pg Low 26.0-34.0 [facility] Comment on above: Performed By: #### 5 8410-2 #### OMERO KNIGHT ([id number]) [facility] ([facility]) [address] [place] [address] 10304 MCHC (RBC) [Mass/Vol] 30.2 g/dL Low 32.0-36.0 [facility] Comment on above: Performed By: #### 5 8410-2 #### OMERO KNIGHT ([id number]) [facility] ([facility]) [address] [place] [address] 85595 MCV (RBC) [Entitic vol] 86 fL Normal 80-100 [facility] Comment on above: Performed By: #### 5 8410-2 #### OMERO KNIGHT ([id number]) [facility] ([facility]) [address] [place] [address] 82031 Nucleated RBC/100 WBC (Bld) [Ratio] 0.0 /100 WBCs Normal 0.0-0.0 [facility] Comment on above: Performed By: #### 5 8410-2 #### OMERO KNIGHT ([id number]) [facility] ([facility]) [address] [place] [address] 51380 Platelets (Bld) [#/Vol] 190 x10*3/uL Normal 150-450 [facility] Comment on above: Performed By: #### 5 8410-2 #### OMERO KNIGHT ([id number]) [facility] ([facility]) [address] [place], [place] [address] RBC (Bld) [#/Vol] 4.06 x10*6/uL Normal 4.00-5.20 [facility] Comment on above: Performed By: #### 5 8410-2 #### OMERO KNIGHT ([id number]) [facility] ([facility]) [address] [place] [address] 74092 WBC (Bld) [#/Vol] 6.4 x10*3/uL Normal 4.4-11.3 [facility] Comment on above: Performed By: #### 5 8410-2 #### OMERO KNIGHT ([id number]) [facility] ([facility]) [address] [place] [address] Guidance for deep biopsy of Boneon 11-14-2023 [facility] MM[facility]AL [facility] MMODAL [facility] Work Phone: CT Guidance for deep biopsy of BoneOrdered By: Caron Donaldson on 11-14-2023 [facility] Work Phone: Extra Urine Draper Tubeon 08-0 Extra Tube Hold for add-ons. [facility] FL FLUORO IMAGES NO CHARGEon 11-14-2023 FL FLUORO IMAGES NO CHARGE These images are not reportable by radiology and will not be interpreted by Radiologists. Normal [facility] Gas and Carbon monoxide and Electrolytes panel (BldA)on 11-14-2023 Anion gap 4 (BldA) [Moles/Vol] 8 Low [facility] Base excess Calc (Bld) [Moles/Vol] 5.0 mmol/L High -2.0 - 3.0 mmol/L [facility] Calcium.ionized (BldA) [Moles/Vol] 1.18 mmol/L 1.10 - 1.33 mmol/L [facility] Chloride (BldA) [Moles/Vol] 101 mmol/L 98 - 107 mmol/L [facility] CO2 (Bld) [Partial pressure] 40 mm[Hg] [facility] Glucose [Mass/Vol] 137 mg/dL High 74 - 99 mg/dL [facility] HCO3 (Bld) [Moles/Vol] 29.1 mmol/L High 22.0 - 26.0 mmol/L [facility] Hematocrit Est (Bld) [Volume fraction] 30.0 % Low 36.0 - 46.0 % [facility] Hemoglobin (Bld) [Mass/Vol] 10.0 g/dL Low 12.0 - 16.0 g/dL [facility] Inhaled oxygen concentration 50 % [facility] Interpretation and review of laboratory results Abnormal [facility] Lactate (BldA) [Moles/Vol] 1.5 mmol/L 0.4 - 2.0 mmol/L [facility] Oxygen (Bld) [Partial pressure] 189 mm[Hg] High [facility] Oxyhemoglobin (BldA) [Mass fraction] 97.7 % 94.0 - 98.0 % [facility] pH (Bld) 7.47 [pH] High 7.38 - 7.42 pH [facility] Potassium (BldA) [Moles/Vol] 3.7 mmol/L 3.5 - 5.3 mmol/L [facility] Sodium (BldA) [Moles/Vol] 134 mmol/L Low 136 - 145 mmol/L [facility] Anion gap 4 (BldA) [Moles/Vol] 8 mmo/L Low 10-25 [facility] Comment on above: Performed By: #### 5 8410-2 #### OMERO KNIGHT ([id number]) [facility] ([facility]) [address] [place] [address] 16357 Base excess Calc (Bld) [Moles/Vol] 5.0 mmol/L High -2.0-3.0 [facility] Comment on above: Performed By: #### 5 8410-2 #### OMERO KNIGHT ([id number]) [facility] ([facility]) [address] [place] [address] 28891 Calcium.ionized (BldA) [Moles/Vol] 1.18 mmol/L Normal 1.10-1.33 [facility] Comment on above: Performed By: #### 5 8410-2 #### OMERO KNIGHT ([id number]) [facility] ([facility]) [address] [place] [address] 69347 Chloride (BldA) [Moles/Vol] 101 mmol/L Normal 98-107 [facility] Comment on above: Performed By: #### 5 8410-2 #### OMERO KNIGHT ([id number]) [facility] ([facility]) [address] [place] [address] 80568 CO2 (Bld) [Partial pressure] 40 mm Hg Normal 38-42 [facility] Comment on above: Performed By: #### 5 8410-2 #### OMERO KNIGHT ([id number]) [facility] ([facility]) [address] [place] [address] 78601 Glucose [Mass/Vol] 137 mg/dL High 74-99 [facility] Comment on above: Performed By: #### 5 8410-2 #### OMERO KNIGHT ([id number]) [facility] ([facility]) [address] [place] [address] 21897 HCO3 (Bld) [Moles/Vol] 29.1 mmol/L High 22.0-26.0 [facility] Comment on above: Performed By: #### 5 8410-2 #### OMERO KNIGHT ([id number]) [facility] ([facility]) [address] [place] [address] 26443 Hematocrit Est (Bld) [Volume fraction] 30.0 % Low 36.0-46.0 [facility] Comment on above: Performed By: #### 5 8410-2 #### OMERO KNIGHT ([id number]) [facility] ([facility]) [address] [place] [address] 19834 Hemoglobin (Bld) [Mass/Vol] 10.0 g/dL Low 12.0-16.0 [facility] Comment on above: Performed By: #### 5 8410-2 #### OMERO KNIGHT ([id number]) [facility] ([facility]) [address] [place] [address] 00078 Inhaled oxygen concentration 50 % Normal [facility] Comment on above: Performed By: #### 5 8410-2 #### OMERO KNIGHT ([id number]) [facility] ([facility]) [address] [place] [address] 47451 Lactate (BldA) [Moles/Vol] 1.5 mmol/L Normal 0.4-2.0 [facility] Comment on above: Performed By: #### 5 8410-2 #### OMERO KNIGHT (01779) [facility] ([facility]) [address] [place] [address] 54574 Oxygen (Bld) [Partial pressure] 189 mm Hg High 85-95 [facility] Comment on above: Performed By: #### 5 8410-2 #### OMERO KNIGHT ([id number]) [facility] ([facility]) [address] [place] [address] 63151 Oxyhemoglobin (BldA) [Mass fraction] 97.7 % Normal 94.0-98.0 [facility] Comment on above: Performed By: #### 5 8410-2 #### OMERO KNIGHT ([id number]) [facility] ([facility]) [address] [place] [address] 53954 pH (Bld) 7.47 [pH] High 7.38-7.42 [facility] Comment on above: Performed By: #### 5 8410-2 #### OMERO KNIGHT (25567) [facility] ([facility]) [facility] [place] [address] Potassium (BldA) [Moles/Vol] 3.7 mmol/L Normal 3.5-5.3 [facility] Comment on above: Performed By: #### 5 8410-2 #### OMERO KNIGHT (34690) [facility] ([facility]) [address] [place] [address] 71539 Sodium (BldA) [Moles/Vol] 134 mmol/L Low 136-145 [facility] Comment on above: Performed By: #### 5 8410-2 #### OMERO KNIGHT ([id number]) [facility] ([facility]) [address] [place] [address] 93947 Anion gap 4 (BldA) [Moles/Vol] 5 Low [facility] Base excess Calc (Bld) [Moles/Vol] 6.2 mmol/L High -2.0 - 3.0 mmol/L [facility] Calcium.ionized (BldA) [Moles/Vol] 1.17 mmol/L 1.10 - 1.33 mmol/L [facility] Chloride (BldA) [Moles/Vol] 101 mmol/L 98 - 107 mmol/L [facility] CO2 (Bld) [Partial pressure] 36 mm[Hg] Low [facility] Glucose [Mass/Vol] 120 mg/dL High 74 - 99 mg/dL [facility] HCO3 (Bld) [Moles/Vol] 29.4 mmol/L High 22.0 - 26.0 mmol/L [facility] Hematocrit Est (Bld) [Volume fraction] 31.0 % Low 36.0 - 46.0 % [facility] Hemoglobin (Bld) [Mass/Vol] 10.3 g/dL Low 12.0 - 16.0 g/dL [facility] Inhaled oxygen concentration 50 % [facility] Interpretation and review of laboratory results Abnormal [facility] Lactate (BldA) [Moles/Vol] 1.1 mmol/L 0.4 - 2.0 mmol/L [facility] Oxygen (Bld) [Partial pressure] 191 mm[Hg] High [facility] Oxyhemoglobin (BldA) [Mass fraction] 97.6 % 94.0 - 98.0 % [facility] pH (Bld) 7.52 [pH] High 7.38 - 7.42 pH [facility] Potassium (BldA) [Moles/Vol] 2.8 mmol/L Critically low 3.5 - 5.3 mmol/L [facility] Sodium (BldA) [Moles/Vol] 133 mmol/L Low 136 - 145 mmol/L [facility] Anion gap 4 (BldA) [Moles/Vol] 5 mmo/L Low 10-25 [facility] Comment on above: Performed By: #### 5 8410-2 #### OMERO KNIGHT ([id number]) [facility] ([facility]) [address] [place] [address] Base excess Calc (Bld) [Moles/Vol] 6.2 mmol/L High -2.0-3.0 [facility] Comment on above: Performed By: #### 5 8410-2 #### OMERO KNIGHT (64334) [facility] ([facility]) [address] [place], [place] [phone] Calcium.ionized (BldA) [Moles/Vol] 1.17 mmol/L Normal 1.10-1.33 [facility] Comment on above: Performed By: #### 5 8410-2 #### OMERO KNIGHT ([id number]) [facility] ([facility]) [address] [place] [address] 71012 Chloride (BldA) [Moles/Vol] 101 mmol/L Normal 98-107 [facility] Comment on above: Performed By: #### 5 8410-2 #### OMERO KNIGHT (23011) [facility] ([facility]) [address] [place] [address] CO2 (Bld) [Partial pressure] 36 mm Hg Low 38-42 [facility] Comment on above: Performed By: #### 5 8410-2 #### OMERO KNIGHT ([id number]) [facility] ([facility]) [address] [place] [address] 39011 Glucose [Mass/Vol] 120 mg/dL High 74-99 [facility] Comment on above: Performed By: #### 5 8410-2 #### OMERO KNIGHT ([id number]) [facility] ([facility]) [address] [place] [address] 70593 HCO3 (Bld) [Moles/Vol] 29.4 mmol/L High 22.0-26.0 [facility] Comment on above: Performed By: #### 5 8410-2 #### OMERO KNIGHT ([id number]) [facility] ([facility]) [address] [place] [address] 62789 Hematocrit Est (Bld) [Volume fraction] 31.0 % Low 36.0-46.0 [facility] Comment on above: Performed By: #### 5 8410-2 #### OMERO KNIGHT (68606) [facility] ([facility]) [address] [place] [address] 51098 Hemoglobin (Bld) [Mass/Vol] 10.3 g/dL Low 12.0-16.0 [facility] Comment on above: Performed By: #### 5 8410-2 #### OMERO KNIGHT ([id number]) [facility] ([facility]) [address] [place] [address] 10370 Inhaled oxygen concentration 50 % Normal [facility] Comment on above: Performed By: #### 5 8410-2 #### OMERO KNIGHT ([id number]) [facility] ([facility]) [address] [place] [address] 90497 Lactate (BldA) [Moles/Vol] 1.1 mmol/L Normal 0.4-2.0 [facility] Comment on above: Performed By: #### 5 8410-2 #### OMERO KNIGHT ([id number]) [facility] ([facility]) [address] [place] [address] 90393 Oxygen (Bld) [Partial pressure] 191 mm Hg High 85-95 [facility] Comment on above: Performed By: #### 5 8410-2 #### OMERO KNIGHT ([id number]) [facility] ([facility]) [address] [place] [address] 70374 Oxyhemoglobin (BldA) [Mass fraction] 97.6 % Normal 94.0-98.0 [facility] Comment on above: Performed By: #### 5 8410-2 #### OMERO KNIGHT ([id number]) [facility] ([facility]) [address] [place] [address] 65650 pH (Bld) 7.52 [pH] High 7.38-7.42 [facility] Comment on above: Performed By: #### 5 8410-2 #### OMERO KNIGHT ([id number]) [facility] ([facility]) [address] [place] [address] 91119 Potassium (BldA) [Moles/Vol] 2.8 mmol/L Critically low 3.5-5.3 [facility] Comment on above: Performed By: #### 5 8410-2 #### OMERO KNIGHT ([id number]) [facility] ([facility]) [address] [place] [address] 83606 Sodium (BldA) [Moles/Vol] 133 mmol/L Low 136-145 [facility] Comment on above: Performed By: #### 5 8410-2 #### OMERO KNIGHT ([id number]) [facility] ([facility]) [address] [place] [address] 42232 Glucose Test strip manual (B ld) [Mass/Vol]on 11-14-2023 Glucose [Mass/Vol] 181 mg/dL High 74 - 99 mg/dL [facility] Interpretation and review of laboratory results Abnormal [facility] Glucose [Mass/Vol] 181 mg/dL High 74-99 [facility] Comment on above: Performed By: #### 2 4323-8 #### OMERO KNIGHT ([id number]) [facility] ([facility]) [address] [place] [address] 91485 Glucose [Mass/Vol] 112 mg/dL High 74 - 99 mg/dL [facility] Interpretation and review of laboratory results Abnormal [facility] Glucose [Mass/Vol] 112 mg/dL High 74-99 [facility] Comment on above: Performed By: #### 5 8410-2 #### OMERO KNIGHT ([id number]) [facility] ([facility]) [address] [place] [address] 77502 Glucose [Mass/Vol] 115 mg/dL High 74 - 99 mg/dL [facility] Interpretation and review of laboratory results Abnormal [facility] Glucose [Mass/Vol] 115 mg/dL High 74-99 [facility] Comment on above: Performed By: #### 5 8410-2 #### OMERO KNIGHT ([id number]) [facility] ([facility]) [address] [place] [address] 02243 PT and aPTT panel Coag (PPP) on 11-14-2023 aPTT Coag (PPP) [Time] 34 s Un [facility] INR Coag (PPP) [Relative time] 1.1 {INR} 0.9 - 1.1 [facility] Interpretation and review of laboratory results Normal [facility] PT Coag (PPP) [Time] 12.7 s [facility] aPTT Coag (PPP) [Time] 34 s Normal 27-38 [facility] Comment on above: Order Comment: The A PTT is no longer used for monitoring Unfractionated Heparin Therapy. For monitoring Heparin Therapy, use the Heparin Assay. Performed By: #### 5 8410-2 #### OMERO KNIGHT ([id number]) [facility] ([facility]) [address] [place] [address] 23766 INR Coag (PPP) [Relative time] 1.1 Normal 0.9-1.1 [facility] Comment on above: Order Comment: The A PTT is no longer used for monitoring Unfractionated Heparin Therapy. For monitoring Heparin Therapy, use the Heparin Assay. Performed By: #### 5 8410-2 #### OMERO KNIGHT ([id number]) [facility] ([facility]) [address] [phone] PT Coag (PPP) [Time] 12.7 s Normal 9.8-12.8 [facility] Comment on above: Order Comment: The A PTT is no longer used for monitoring Unfractionated Heparin Therapy. For monitoring Heparin Therapy, use the Heparin Assay. Performed By: #### 5 8410-2 #### OMERO KNIGHT ([id number]) [facility] ([facility]) [facility] [phone] Renal function 2000 panelon 11-14-2023 Albumin BCP dye [Mass/Vol] 2.7 g/dL Low 3.4 - 5.0 g/dL [facility] Anion gap [Moles/Vol] 10 mmol/L 10 - 2 0 mmol/L [facility] Calcium [Mass/Vol] 8.9 mg/dL 8.6 - 10. 6 mg/dL [facility] Chloride [Moles/Vol] 96 mmol/L Low 98 - 10 7 mmol/L [facility] CO2 [Moles/Vol] 35 mmol/L High 21 - 32 mmol/L [facility] Creatinine [Mass/Vol] 0.97 mg/dL 0.50 - 1.05 mg/dL [facility] GFR/1.73 sq M.predicted among non-blacks MDRD (S/P/Bld) [Vol rate/Area] 61 mL/min/{1.73_m2} - PINF [facility] Glucose [Mass/Vol] 110 mg/dL High 74 - 99 mg/dL [facility] Interpretation and review of laboratory results Abnormal [facility] Phosphate [Mass/Vol] 3.3 mg/dL 2.5 - 4 .9 mg/dL [facility] Potassium [Moles/Vol] 3.4 mmol/L Low 3.5 - 5.3 mmol/L [facility] Sodium [Moles/Vol] 138 mmol/L 136 - 145 mmol/L [facility] Urea nitrogen [Mass/Vol] 16 mg/dL 6 - 23 mg/dL [facility] Albumin BCP dye [Mass/Vol] 2.7 g/dL Low 3.4-5.0 [facility] Comment on above: Performed By: #### 5 8410-2 #### OMERO KNIGHT ([id number]) [facility] ([facility]) [address] [place] [address] 49844 Anion gap [Moles/Vol] 10 mmol/L Normal 10-20 [facility] Comment on above: Performed By: #### 5 8410-2 #### OMERO KNIGHT ([id number]) [facility] ([facility]) [address] [place] [address] 99752 Calcium [Mass/Vol] 8.9 mg/dL Normal 8.6-10.6 [facility] Comment on above: Performed By: #### 5 8410-2 #### OMERO KNIGHT ([id number]) [facility] ([facility]) [address] [place] [address] 98986 Chloride [Moles/Vol] 96 mmol/L Low 98-107 [facility] Comment on above: Performed By: #### 5 8410-2 #### OMERO KNIGHT ([id number]) [facility] ([facility]) [address] [place] [address] 90857 CO2 [Moles/Vol] 35 mmol/L High 21-32 [facility] Comment on above: Performed By: #### 5 8410-2 #### OMERO KNIGHT ([id number]) [facility] ([facility]) [address] [place] [address] 23662 Creatinine [Mass/Vol] 0.97 mg/dL Normal 0.50-1.05 [facility] Comment on above: Performed By: #### 5 8410-2 #### OMERO KNIGHT ([id number]) [facility] ([facility]) [address] [place] [address] 00734 Glomerular filtration rate/1.73 sq M.predicted 61 mL/min/1.73m*2 Normal >60 [facility] Comment on above: Result Comment: Calc ulations of estimated GFR are performed using the 2020 CKD-EPI Study Refit equation without the race variable for the IDMS-Traceable creatinine methods. https://jasn.asnjournals.org/content//ASN.88808 73070 Performed By: #### 5 8410-2 #### OMERO KNIGHT ([id number]) [facility] ([facility]) [facility] [place] [address] Glucose [Mass/Vol] 110 mg/dL High 74-99 [facility] Comment on above: Performed By: #### 5 8410-2 #### OMERO KNIGHT ([id number]) [facility] ([facility]) [address] [place] [address] 45751 Phosphate [Mass/Vol] 3.3 mg/dL Normal 2.5-4.9 [facility] Comment on above: Result Comment: The performance characteristics of phosphorus testing in heparinized plasma have been validated by the individual laboratory site where testing is performed. Testing on heparinized plasma is not approved by the FDA; however, such approval is not necessary. Performed By: #### 5 8410-2 #### OMERO KNIGHT ([id number]) [facility] ([facility]) [address] [place] [address] 98802 Potassium [Moles/Vol] 3.4 mmol/L Low 3.5-5.3 [facility] Comment on above: Performed By: #### 5 8410-2 #### OMERO KNIGHT ([id number]) [facility] ([facility]) [address] [place] [address] 53795 Sodium [Moles/Vol] 138 mmol/L Normal 136-145 [facility] Comment on above: Performed By: #### 5 8410-2 #### OMERO KNIGHT ([id number]) [facility] ([facility]) [address] [place] [address] 45052 Urea nitrogen [Mass/Vol] 16 mg/dL Normal 6-23 [facility] Comment on above: Performed By: #### 5 8410-2 #### OMERO KNIGHT ([id number]) [facility] ([facility]) [address] [place] [address] 82413 XR Chest Single viewon 11-13 UH MMODAL UH MMODAL [facility] Work Phone: XR Chest Single viewOrdered By: Bunny Asher on 11-14-2023 [facility] Work Phone: XR tomography Unspecified bhavik dy regionon 11-14-2023 IMAGING BROAD RANGE PCR-BACTERIAon 0 11-13-2023 SCAN RESULT See Scanned Result Normal [facility] Comment on above: Order Comment: EPIDU RAL ABSCESS Performed By: #### 1 9123-9 #### OMERO KNIGHT ([id number]) [facility] ([facility]) [address] [place] [address] 69093 Bacteria identifiedon 2023 Bacteria identified Cx Nom (Unsp spec) Test: Tissue/Wound Culture/Smear Specimen Source: Wound/Tissue Specimen Type: Tissue/Biopsy Specimen Date: 11/13/2023 1111 Result Date: 11/15/2023 1013 Result Status: Final result Resulting Lab: [facility] [address] [place] [address] CULTURE No growth aerobically and anaerobically STAIN (1+) Rare Polymorphonuclear leukocytes No organisms seen [facility] Comment on above: Performed By: #### 5 8410-2 #### OMERO KNIGHT ([id number]) [facility] ([facility]) [address] [place], [place] [phone] Bacteria identified Cx Nom ( Bld)on 11-13-2023 Interpretation and review of laboratory results Normal [facility] Blood type and Indirect anti body screen panel (Bld)on 11-13-2023 ABO group Nom (Bld) O [facility] Blood group antibody screen Ql Negative [facility] D Ag Ql (Bld) Positive [facility] ABO group Nom (Bld) O Normal [facility] Comment on above: Performed By: #### 4 548-4 #### OMERO KNIGHT ([id number]) [facility] ([facility]) [address] [place] [address] 35159 Blood group antibody screen Ql Negative [facility] Comment on above: Performed By: #### 4 548-4 #### OMERO KNIGHT ([id number]) [facility] ([facility]) [address] [place] [address] 17965 D Ag Ql (Bld) Positive [facility] Comment on above: Performed By: #### 4 548-4 #### OMERO KNIGHT ([id number]) [facility] ([facility]) [address] [place] [address] CT Guidance for deep biopsy of Boneon 11-13-2023 Radiology Study observation (narrative) [facility] Work Phone: Glucose Test strip manual (B ld) [Mass/Vol]on 11-13-2023 Glucose [Mass/Vol] 122 mg/dL High 74 - 99 mg/dL [facility] Interpretation and review of laboratory results Abnormal [facility] Glucose [Mass/Vol] 122 mg/dL High 74-99 [facility] Comment on above: Performed By: #### 4 548-4 #### OMERO KNIGHT ([id number]) [facility] ([facility]) [address] [place], [place] [address] Glucose [Mass/Vol] 171 mg/dL High 74 - 99 mg/dL [facility] Interpretation and review of laboratory results Abnormal [facility] Glucose [Mass/Vol] 171 mg/dL High 74-99 [facility] Comment on above: Performed By: #### 4 548-4 #### OMERO KNIGHT ([id number]) [facility] ([facility]) [address] [place], [place] [address] Glucose [Mass/Vol] 122 mg/dL High 74 - 99 mg/dL [facility] Interpretation and review of laboratory results Abnormal [facility] Glucose [Mass/Vol] 122 mg/dL High 74-99 [facility] Comment on above: Performed By: #### 4 548-4 #### OMERO GONZALEZHRLI ([id number]) [facility] ([facility]) [address] [place] [address] Glucose [Mass/Vol] 109 mg/dL High 74 - 99 mg/dL [facility] Interpretation and review of laboratory results Abnormal [facility] Glucose [Mass/Vol] 109 mg/dL High 74-99 [facility] Comment on above: Performed By: #### 4 548-4 #### OMERO KNIGHT ([id number]) [facility] ([facility]) [address] [place] [address] Laboratory - Microbiology an d Antimicrobial susceptibilityon 11-13-2023 Bacteria identified Cx Nom (Bld) No growth at 4 days - FINAL REPORT [facility] Surgical pathology studyon 0 11-13-2023 Surgical pathology study Pathology report.total SEE COMMENT Surgical Pathology Case: [id number] Authorizing Provider: Ru Ortega MD Collected: 11/13/2023 1109 Ordering Location: [facility] Received: 11/13/2023 [address] [address] Pathologist: Edmundo Joe MD Specimen: BONE BIOPSY [...] in one cassette following decalcification. RCC Normal [facility] Urinalysis complete W Reflex Culture panel (U)on 11-13-2023 Appearance (U) Clear Clear [facility] Bilirubin (U) [Mass/Vol] Negative NEGATIVE [facility] Color (U) Light-Yellow Light-Yellow , Yellow, Dark-Yellow [facility] Epithelial cells.squamous Auto (Urine sed) [#/Area] 1-9 (SPARSE) Reference range not established. /HPF [facility] Glucose Auto test strip (U) [Mass/Vol] Normal Normal mg/dL [facility] Interpretation and review of laboratory results Normal [facility] Ketones (U) [Mass/Vol] Negative NEGAT JORGE mg/dL [facility] Leukocyte esterase Auto test strip Ql (U) Negative NEGATIVE [facility] Nitrite Auto test strip Ql (U) Negative NEGATIVE [facility] pH (U) 7.0 [pH] 5.0, 5.5, 6.0, 6.5, 7.0, 7.5, 8.0 [facility] Protein (U) [Mass/Vol] 20 (TRACE) NEGAT JORGE, 10 (TRACE), 20 (TRACE) mg/dL [facility] RBC (U) [#/Vol] Negative NEGATIVE [facility] RBC Auto (Urine sed) [#/Area] 1-2 NONE, 1-2, 3-5 /HPF [facility] Specific gravity (U) [Rel density] 1.011 1.005 - 1.035 [facility] Urobilinogen (U) [Mass/Vol] Normal Normal mg/dL [facility] WBC Auto (Urine sed) [#/Area] 1-5 1-5, NONE /HPF [facility] Appearance (U) Clear Normal Clear [facility] Comment on above: Performed By: #### 4 548-4 #### OMERO KNIGHT ([id number]) [facility] ([facility]) [address] [place] [address] 86136 Bilirubin (U) [Mass/Vol] Negative Normal NEGATIVE [facility] Comment on above: Performed By: ###Chuyita 4 548-4 #### OMERO KNIGHT ([id number]) [facility] ([facility]) [address] [place] [address] 66338 Color (U) Light-Yellow Normal Light-Yellow , Yellow, Dark-Yellow [facility] Comment on above: Performed By: ###Chuyita Shannon 548-4 #### OMERO KNIGHT ([id number]) [facility] ([facility]) [address] [place] [address] 21504 Epithelial cells.squamous Auto (Urine sed) [#/Area] 1-9 (SPARSE) Normal Reference range not established. [facility] Comment on above: Performed By: #### 4 548-4 #### OMERO KNIGHT ([id number]) [facility] ([facility]) [address] [place], [place] [address] Glucose Auto test strip (U) [Mass/Vol] Normal Normal Normal [facility] Comment on above: Performed By: #### 4 548-4 #### OMERO KNIGHT ([id number]) [facility] ([facility]) [address] [place] [address] Ketones (U) [Mass/Vol] Negative Normal [facility]IVE [facility] Comment on above: Performed By: #### 4 548-4 #### OMERO KNIGHT ([id number]) [facility] ([facility]) [address] [place], [place] [address] Leukocyte esterase Auto test strip Ql (U) Negative Normal NEGATIVE [facility] Comment on above: Performed By: #### 4 548-4 #### OMERO KNIGHT ([id number]) [facility] ([facility]) [address] [place], [place] [address] Nitrite Auto test strip Ql (U) Negative Normal NEGATIVE [facility] Comment on above: Performed By: #### 4 548-4 #### OMERO KNIGHT ([id number]) [facility] ([facility]) [address] [place] [address] 93571 pH (U) 7.0 [pH] Normal 5.0, 5.5, 6.0, 6.5, 7.0, 7.5, 8.0 [facility] Comment on above: Performed By: #### 4 548-4 #### OMERO KNIGHT ([id number]) [facility] ([facility]) [address] [place] [address] 91730 Protein (U) [Mass/Vol] 20 (TRACE) Normal NEGAT JORGE, 10 (TRACE), 20 (TRACE) [facility] Comment on above: Performed By: #### 4 548-4 #### OMERO KNIGHT ([id number]) [facility] ([facility]) [address] [place] [address] 79683 RBC (U) [#/Vol] Negative Normal NEGATIVE [facility] Comment on above: Performed By: #### 4 548-4 #### OMERO KNIGHT ([id number]) [facility] ([facility]) [address] [place] [address] 00468 RBC Auto (Urine sed) [#/Area] 1-2 Normal NONE, 1-2, 3-5 [facility] Comment on above: Performed By: #### 4 548-4 #### OMERO KNIGHT ([id number]) [facility] ([facility]) [address] [place] [address] 61941 Specific gravity (U) [Rel density] 1.011 Normal 1.005-1.035 [facility] Comment on above: Performed By: #### 4 548-4 #### OMERO KNIGHT ([id number]) [facility] ([facility]) [address] [place] [address] 34537 Urobilinogen (U) [Mass/Vol] Normal Normal Normal [facility] Comment on above: Performed By: #### 4 548-4 #### OMERO KNIGHT ([id number]) [facility] ([facility]) [address] [place] [address] 03517 WBC Auto (Urine sed) [#/Area] 1-5 Normal 1-5, NONE [facility] Comment on above: Performed By: #### 4 548-4 #### OMERO KNIGHT ([id number]) [facility] ([facility]) [address] [place] [address] 02389 Vancomycinon 11-13-2023 Vancomycin [Mass/Vol] 17.5 ug/mL 5.0 - 20.0 ug/mL [facility] Vancomycin [Mass/Vol] 17.5 ug/mL Normal 5.0-20.0 [facility] Comment on above: Order Comment: Diagn osis of Diabetes-Adults Non-Diabetic: < or = 5.6% Increased risk for developing diabetes: 5.7-6.4% Diagnostic of diabetes: > or = 6.5% Monitoring of Diabetes Age (y)....................... Therapeutic Goal (%) Adults: >18.........................<7.0 Pediatrics: 13-18...................<7.5 Pediatrics: 7-12....................<8.0 Pediatrics: 0-6..................... 7.5-8.5 [place] [employer]. Diabetes Care 33(S1), Apr 2009 Performed By: #### 4 548-4 #### JAMIL EUGENE ([id number]) [facility] ([facility]) [address] [place] [address] Vancomycin [Mass/Vol]on Interpretation and review of laboratory results [facility] XR CHEST 1 VIEWon 11-13-2023 XR CHEST 1 VIEW Interpreted By: Bunny Asher and [place] STUDY: XR CHEST 1 VIEW; 11/13/2023 11:11 pm INDICATION: Signs/Symptoms:preop. COMPARISON: CT chest abdomen pelvis 11/06/2023 ACCESSION NUMBER(S): [id number] ORDERING CLINICIAN: RU ORTEGA FINDINGS: AP upright [...] as stated. This study was interpreted at [facility], [place], [place]. MACRO: None Signed by: Bunny Asher 11/14/2023 7:48 AM Dictation workstation: [id number] Normal [facility] XR Chest Single viewon 11-12 Radiology Study observation (narrative) [facility] Work Phone: Basic metabolic 2000 panelon 11-12-2023 Anion gap [Moles/Vol] 11 mmol/L 10 - 2 0 mmol/L [facility] Calcium [Mass/Vol] 8.8 mg/dL 8.6 - 10. 6 mg/dL [facility] Chloride [Moles/Vol] 95 mmol/L Low 98 - 10 7 mmol/L [facility] CO2 [Moles/Vol] 34 mmol/L High 21 - 32 mmol/L [facility] Creatinine [Mass/Vol] 0.75 mg/dL 0.50 - 1.05 mg/dL [facility] GFR/1.73 sq M.predicted among non-blacks MDRD (S/P/Bld) [Vol rate/Area] 83 mL/min/{1.73_m2} - PINF [facility] Glucose [Mass/Vol] 118 mg/dL High 74 - 99 mg/dL [facility] Potassium [Moles/Vol] 3.5 mmol/L 3.5 - 5.3 mmol/L [facility] Sodium [Moles/Vol] 136 mmol/L 136 - 145 mmol/L [facility] Urea nitrogen [Mass/Vol] 13 mg/dL 6 - 23 mg/dL [facility] Anion gap [Moles/Vol] 11 mmol/L Normal 10-20 [facility] Comment on above: Performed By: #### 2 626-9 #### OMERO KNIGHT ([id number]) [facility] ([facility]) [address] [place] [address] Calcium [Mass/Vol] 8.8 mg/dL Normal 8.6-10.6 [facility] Comment on above: Performed By: #### 2 132-9 #### OMERO KNIGHT ([id number]) [facility] ([facility]) [address] [place] [address] Chloride [Moles/Vol] 95 mmol/L Low 98-107 [facility] Comment on above: Performed By: #### 2 132-9 #### OMERO KNIGHT ([id number]) [facility] ([facility]) [address] [place] [address] CO2 [Moles/Vol] 34 mmol/L High 21-32 [facility] Comment on above: Performed By: #### 2 132-9 #### OMERO KNIGHT ([id number]) [facility] ([facility]) [address] [place] [address] 43709 Creatinine [Mass/Vol] 0.75 mg/dL Normal 0.50-1.05 [facility] Comment on above: Performed By: #### 2 132-9 #### OMERO KNIGHT ([id number]) [facility] ([facility]) [address] [place] [address] 80398 Glomerular filtration rate/1.73 sq M.predicted 83 mL/min/1.73m*2 Normal >60 [facility] Comment on above: Result Comment: Calc ulations of estimated GFR are performed using the 2020 CKD-EPI Study Refit equation without the race variable for the IDMS-Traceable creatinine methods. https://jasn.asnjournals.org/content//ASN.92675 78560 Performed By: #### 2 132-9 #### OMERO KNIGHT ([id number]) [facility] ([facility]) [facility] [place] [address] Glucose [Mass/Vol] 118 mg/dL High 74-99 [facility] Comment on above: Performed By: #### 2 132-9 #### OMERO KNIGHT ([id number]) [facility] ([facility]) [facility] [place] [address] Potassium [Moles/Vol] 3.5 mmol/L Normal 3.5-5.3 [facility] Comment on above: Performed By: #### 2 132-9 #### JAMIL WEHRLI ([id number]) [facility] ([facility]) [address] [place] [address] Sodium [Moles/Vol] 136 mmol/L Normal 136-145 [facility] Comment on above: Performed By: #### 2 132-9 #### OMERO KNIGHT ([id number]) [facility] ([facility]) [address] [place] [address] Urea nitrogen [Mass/Vol] 13 mg/dL Normal 6-23 [facility] Center Comment on above: Performed By: #### 2 132-9 #### OMERO KNIGHT ([id number]) [facility] ([facility]) [address] [place] [address] Blood type and Indirect anti body screen panel (Bld)on 11-12-2023 ABO group Nom (Bld) O [facility] Blood group antibody screen Ql Negative [facility] D Ag Ql (Bld) Positive [facility] ABO group Nom (Bld) O Normal [facility] Comment on above: Performed By: #### 2 132-9 #### OMERO KNIGHT ([id number]) [facility] ([facility]) [address] [place] [address] Blood group antibody screen Ql Negative [facility] Comment on above: Performed By: #### 2 132-9 #### OMERO KNIGHT ([id number]) [facility] ([facility]) [address] [place] [address] D Ag Ql (Bld) Positive [facility] Comment on above: Result Comment: 2nd ABO test required. Order and Collect VERAB Performed By: #### 2 132-9 #### OMERO KNIGHT ([id number]) [facility] ([facility]) [address] [place] [address] CBC W Auto Differential pane l (Bld)on 11-12-2023 Basophils (Bld) [#/Vol] 0.05 10*3/uL [facility] Basophils/100 WBC (Bld) 0.7 % 0.0 - 2.0 % [facility] Eosinophils (Bld) [#/Vol] 0.15 10*3/uL [facility] Eosinophils/100 WBC (Bld) 2.1 % 0.0 - 6.0 % [facility] Erythrocyte distribution width (RBC) [Ratio] 15.4 % High 11.5 - 14.5 % [facility] Hematocrit (Bld) [Volume fraction] 33.7 % Low 36.0 - 46.0 % [facility] Hemoglobin (Bld) [Mass/Vol] 10.8 g/dL Low 12.0 - 16.0 g/dL [facility] Immature granulocytes (Bld) [#/Vol] 0.03 10*3/uL [facility] Immature granulocytes/100 WBC (Bld) 0.4 % 0.0 - 0.9 % [facility] Interpretation and review of laboratory results Abnormal [facility] Lymphocytes (Bld) [#/Vol] 3.21 10*3/uL High [facility] Lymphocytes/100 WBC (Bld) 43.9 % 13.0 - 44.0 % [facility] MCH (RBC) [Entitic mass] 26.8 pg 26.0 - 34.0 pg [facility] MCHC (RBC) [Mass/Vol] 32.0 g/dL 32.0 - 36.0 g/dL [facility] MCV (RBC) [Entitic vol] 84 fL 80 - 100 fL [facility] Monocytes (Bld) [#/Vol] 0.66 10*3/uL [facility] Monocytes/100 WBC (Bld) 9.0 % 2.0 - 10.0 % [facility] Neutrophils (Bld) [#/Vol] 3.21 10*3/uL [facility] Neutrophils/100 WBC (Bld) 43.9 % 40.0 - 80.0 % [facility] Nucleated RBC/100 WBC (Bld) [Ratio] 0.0 % [facility] Platelets (Bld) [#/Vol] 223 10*3/uL [facility] RBC (Bld) [#/Vol] 4.03 10*6/uL [facility] WBC (Bld) [#/Vol] 7.3 10*3/uL [facility] Basophils (Bld) [#/Vol] 0.05 x10*3/uL Normal 0.00-0.10 [facility] Comment on above: Performed By: #### 2 132-9 #### OMERO KNIGHT ([id number]) [facility] ([facility]) [address] [place] [address] 90905 Basophils/100 WBC (Bld) 0.7 % Normal 0.0-2.0 [facility] Comment on above: Performed By: #### 2 132-9 #### OMERO KNIGHT ([id number]) [facility] ([facility]) [address] [place] [address] 47247 Eosinophils (Bld) [#/Vol] 0.15 x10*3/uL Normal 0.00-0.40 [facility] Comment on above: Performed By: #### 2 132-9 #### OMERO KNIGHT ([id number]) [facility] ([facility]) [address] [place] [address] 54094 Eosinophils/100 WBC (Bld) 2.1 % Normal 0.0-6.0 [facility] Comment on above: Performed By: #### 2 132-9 #### OMERO KNIGHT ([id number]) [facility] ([facility]) [address] [place] [address] 46875 Erythrocyte distribution width (RBC) [Ratio] 15.4 % High 11.5-14.5 [facility] Comment on above: Performed By: #### 2 132-9 #### OMERO KNIGHT ([id number]) [facility] ([facility]) [address] [place] [address] 73936 Hematocrit (Bld) [Volume fraction] 33.7 % Low 36.0-46.0 [facility] Comment on above: Performed By: #### 2 132-9 #### OMERO KNIGHT ([id number]) [facility] ([facility]) [address] [place] [address] 97945 Hemoglobin (Bld) [Mass/Vol] 10.8 g/dL Low 12.0-16.0 [facility] Comment on above: Performed By: #### 2 132-9 #### OMERO KNIGHT ([id number]) [facility] ([facility]) [address] [place] [address] 87689 Immature granulocytes (Bld) [#/Vol] 0.03 x10*3/uL Normal 0.00-0.50 [facility] Comment on above: Performed By: #### 2 132-9 #### OMERO KNIGHT ([id number]) [facility] ([facility]) [address] [place] [address] 31201 Immature granulocytes/100 WBC (Bld) 0.4 % Normal 0.0-0.9 [facility] Comment on above: Result Comment: Martina ture Granulocyte Count (IG) includes promyelocytes, myelocytes and metamyelocytes but does not include bands. Percent differential counts (%) should be interpreted in the context of the absolute cell counts (cells/UL). Performed By: #### 2 132-9 #### OMERO KNIGHT ([id number]) [facility] ([facility]) [address] [place] [address] 15845 Lymphocytes (Bld) [#/Vol] 3.21 x10*3/uL High 0.80-3.00 [facility] Comment on above: Performed By: #### 2 132-9 #### OMERO KNIGHT ([id number]) [facility] ([facility]) [address] [place] [address] 40668 Lymphocytes/100 WBC (Bld) 43.9 % Normal 13.0-44.0 [facility] Comment on above: Performed By: #### 2 132-9 #### OMERO KNIGHT ([id number]) [facility] ([facility]) [address] [place] [address] 97987 MCH (RBC) [Entitic mass] 26.8 pg Normal 26.0-34.0 [facility] Comment on above: Performed By: #### 2 132-9 #### OMERO KNIGHT ([id number]) [facility] ([facility]) [address] [place] [address] 74445 MCHC (RBC) [Mass/Vol] 32.0 g/dL Normal 32.0-36.0 [facility] Comment on above: Performed By: #### 2 132-9 #### OMERO KNIGHT ([id number]) [facility] ([facility]) [address] [place] [address] 56330 MCV (RBC) [Entitic vol] 84 fL Normal 80-100 [facility] Comment on above: Performed By: #### 2 132-9 #### OMERO KNIGHT ([id number]) [facility] ([facility]) [address] [place] [address] 09874 Monocytes (Bld) [#/Vol] 0.66 x10*3/uL Normal 0.05-0.80 [facility] Comment on above: Performed By: #### 2 132-9 #### OMERO KNIGHT ([id number]) [facility] ([facility]) [address] [place] [address] 41762 Monocytes/100 WBC (Bld) 9.0 % Normal 2.0-10.0 [facility] Comment on above: Performed By: #### 2 132-9 #### OMERO KNIGHT ([id number]) [facility] ([facility]) [address] [place] [address] 15201 Neutrophils (Bld) [#/Vol] 3.21 x10*3/uL Normal 1.60-5.50 [facility] Comment on above: Result Comment: Perc ent differential counts (%) should be interpreted in the context of the absolute cell counts (cells/uL). Performed By: #### 2 132-9 #### OMERO KNIGHT ([id number]) [facility] ([facility]) [address] [place] [address] 76164 Neutrophils/100 WBC (Bld) 43.9 % Normal 40.0-80.0 [facility] Comment on above: Performed By: #### 2 132-9 #### OMERO KNIGHT (50360) [facility] ([facility]) [address] [place] [address] 63782 Nucleated RBC/100 WBC (Bld) [Ratio] 0.0 /100 WBCs Normal 0.0-0.0 [facility] Comment on above: Performed By: #### 2 132-9 #### OMERO KNIGHT ([id number]) [facility] ([facility]) [address] [place] [address] 89057 Platelets (Bld) [#/Vol] 223 x10*3/uL Normal 150-450 [facility] Comment on above: Performed By: #### 2 132-9 #### OMERO KNIGHT ([id number]) [facility] ([facility]) [address] [place] [address] 82260 RBC (Bld) [#/Vol] 4.03 x10*6/uL Normal 4.00-5.20 [facility] Comment on above: Performed By: #### 2 132-9 #### OMERO KNIGHT ([id number]) [facility] ([facility]) [address] [place] [address] 91613 WBC (Bld) [#/Vol] 7.3 x10*3/uL Normal 4.4-11.3 [facility] Comment on above: Performed By: #### 2 132-9 #### OMERO KNIGHT ([id number]) [facility] ([facility]) [address] [place] [address] 68603 Glucose Test strip manual (B ld) [Mass/Vol]on 11-12-2023 Glucose [Mass/Vol] 110 mg/dL High 74 - 99 mg/dL [facility] Interpretation and review of laboratory results Abnormal [facility] Glucose [Mass/Vol] 110 mg/dL High 74-99 [facility] Comment on above: Performed By: #### 4 548-4 #### OEMRO KNIGHT ([id number]) [facility] ([facility]) [address] [place] [address] 99082 Glucose [Mass/Vol] 141 mg/dL High 74 - 99 mg/dL [facility] Interpretation and review of laboratory results Abnormal [facility] Glucose [Mass/Vol] 141 mg/dL High 74-99 [facility] Comment on above: Performed By: #### 4 548-4 #### OMERO KNIGHT ([id number]) [facility] ([facility]) [address] [place] [address] Glucose [Mass/Vol] 127 mg/dL High 74 - 99 mg/dL [facility] Interpretation and review of laboratory results Abnormal [facility] Glucose [Mass/Vol] 127 mg/dL High 74-99 [facility] Comment on above: Performed By: #### 2 132-9 #### OMERO KNIGHT ([id number]) [facility] ([facility]) [address] [place] [address] Glucose [Mass/Vol] 133 mg/dL High 74 - 99 mg/dL [facility] Interpretation and review of laboratory results Abnormal [facility] Glucose [Mass/Vol] 133 mg/dL High 74-99 [facility] Comment on above: Performed By: #### 2 132-9 #### OMERO KNIGHT ([id number]) [facility] ([facility]) [address] [place] [address] 62171 Hepatic function 2000 panelo n 11-12-2023 Albumin BCP dye [Mass/Vol] 2.8 g/dL Low 3.4 - 5.0 g/dL [facility] ALP [Catalytic activity/Vol] 143 U/L High 33 - 136 U/L [facility] ALT With P-5'-P [Catalytic activity/Vol] 8 U/L 7 - 45 U/L [facility] AST With P-5'-P [Catalytic activity/Vol] 17 U/L 9 - 39 U/L [facility] Bilirubin [Mass/Vol] 0.3 mg/dL 0.0 - 1 .2 mg/dL [facility] Bilirubin.direct [Mass/Vol] 0.1 mg/dL 0.0 - 0.3 mg/dL [facility] Protein [Mass/Vol] 6.0 g/dL Low 6.4 - 8.2 g/dL [facility] Albumin BCP dye [Mass/Vol] 2.8 g/dL Low 3.4-5.0 [facility] Comment on above: Performed By: #### 2 132-9 #### OMERO KNIGHT ([id number]) [facility] ([facility]) [address] [place] [address] ALP [Catalytic activity/Vol] 143 U/L High 33-136 [facility] Comment on above: Performed By: #### 2 132-9 #### OMERO KNIGHT ([id number]) [facility] ([facility]) [address] [place] [address] 24606 ALT With P-5'-P [Catalytic activity/Vol] 8 U/L Normal 7-45 [facility] Comment on above: Result Comment: Madhavi ents treated with Sulfasalazine may generate falsely decreased results for ALT. Performed By: #### 2 132-9 #### OMERO KNIGHT ([id number]) [facility] ([facility]) [address] [place] [address] 13856 AST With P-5'-P [Catalytic activity/Vol] 17 U/L Normal 9-39 [facility] Comment on above: Performed By: #### 2 132-9 #### OMERO KNIGHT ([id number]) [facility] ([facility]) [address] [place] [address] 96844 Bilirubin [Mass/Vol] 0.3 mg/dL Normal 0.0-1.2 [facility] Comment on above: Performed By: #### 2 132-9 #### OMERO KNIGHT ([id number]) [facility] ([facility]) [address] [place] [address] 74359 Bilirubin.direct [Mass/Vol] 0.1 mg/dL Normal 0.0-0.3 [facility] Comment on above: Performed By: #### 2 132-9 #### OMERO KNIGHT ([id number]) [facility] ([facility]) [address] [place] [address] 60386 Protein [Mass/Vol] 6.0 g/dL Low 6.4-8.2 [facility] Comment on above: Performed By: #### 2 132-9 #### OMERO KNIGHT ([id number]) [facility] ([facility]) [address] [place] [address] Magnesiumon 11-12-2023 Magnesium [Mass/Vol] 1.85 mg/dL 1.60 - 2.40 mg/dL [facility] Magnesium [Mass/Vol] 1.85 mg/dL Normal 1.60-2.40 [facility] Comment on above: Performed By: #### 2 132-9 #### OMERO KNIGHT ([id number]) [facility] ([facility]) [address] [place] [address] No Panel Informationon 11-11 Interpretation and review of laboratory results Abnormal [facility] Interpretation and review of laboratory results Normal [facility] PT and aPTT panel Coag (PPP) on 11-12-2023 aPTT Coag (PPP) [Time] 34 s Un [facility] INR Coag (PPP) [Relative time] 1.1 {INR} 0.9 - 1.1 [facility] Interpretation and review of laboratory results Normal [facility] PT Coag (PPP) [Time] 12.5 s [facility] aPTT Coag (PPP) [Time] 34 s Normal 27-38 [facility] Comment on above: Order Comment: The A PTT is no longer used for monitoring Unfractionated Heparin Therapy. For monitoring Heparin Therapy, use the Heparin Assay. Performed By: #### 2 132-9 #### OMERO KNIGHT ([id number]) [facility] ([facility]) [address] [place] [address] INR Coag (PPP) [Relative time] 1.1 Normal 0.9-1.1 [facility] Comment on above: Order Comment: The A PTT is no longer used for monitoring Unfractionated Heparin Therapy. For monitoring Heparin Therapy, use the Heparin Assay. Performed By: #### 2 132-9 #### OMERO KNIGHT ([id number]) [facility] ([facility]) [address] [place], [place] [id number] PT Coag (PPP) [Time] 12.5 s Normal 9.8-12.8 [facility] Comment on above: Order Comment: The A PTT is no longer used for monitoring Unfractionated Heparin Therapy. For monitoring Heparin Therapy, use the Heparin Assay. Performed By: #### 2 132-9 #### OMERO KNIGHT ([id number]) [facility] ([facility]) [facility] [place] [address] Phosphateon 11-12-2023 Phosphate [Mass/Vol] 2.5 mg/dL Normal 2.5-4.9 [facility] Comment on above: Result Comment: The performance characteristics of phosphorus testing in heparinized plasma have been validated by the individual laboratory site where testing is performed. Testing on heparinized plasma is not approved by the FDA; however, such approval is not necessary. Performed By: #### 2 132-9 #### OMERO KNIGHT ([id number]) [facility] ([facility]) [address] [place] [address] 44014 Phosphoruson 11-12-2023 Phosphate [Mass/Vol] 2.5 mg/dL 2.5 - 4 .9 mg/dL [facility] CBC W Auto Differential pane l (Bld)on 11-11-2023 Basophils (Bld) [#/Vol] 0.03 10*3/uL [facility] Basophils/100 WBC (Bld) 0.5 % 0.0 - 2.0 % [facility] Eosinophils (Bld) [#/Vol] 0.15 10*3/uL [facility] Eosinophils/100 WBC (Bld) 2.3 % 0.0 - 6.0 % [facility] Erythrocyte distribution width (RBC) [Ratio] 15.4 % High 11.5 - 14.5 % [facility] Hematocrit (Bld) [Volume fraction] 33.4 % Low 36.0 - 46.0 % [facility] Hemoglobin (Bld) [Mass/Vol] 10.6 g/dL Low 12.0 - 16.0 g/dL [facility] Immature granulocytes (Bld) [#/Vol] 0.02 10*3/uL [facility] Immature granulocytes/100 WBC (Bld) 0.3 % 0.0 - 0.9 % [facility] Interpretation and review of laboratory results Abnormal [facility] Lymphocytes (Bld) [#/Vol] 2.41 10*3/uL [facility] Lymphocytes/100 WBC (Bld) 37.4 % 13.0 - 44.0 % [facility] MCH (RBC) [Entitic mass] 26.6 pg 26.0 - 34.0 pg [facility] MCHC (RBC) [Mass/Vol] 31.7 g/dL Low 32.0 - 36.0 g/dL [facility] MCV (RBC) [Entitic vol] 84 fL 80 - 100 fL [facility] Monocytes (Bld) [#/Vol] 0.56 10*3/uL [facility] Monocytes/100 WBC (Bld) 8.7 % 2.0 - 10.0 % [facility] Neutrophils (Bld) [#/Vol] 3.28 10*3/uL [facility] Neutrophils/100 WBC (Bld) 50.8 % 40.0 - 80.0 % [facility] Nucleated RBC/100 WBC (Bld) [Ratio] 0.0 % [facility] Platelets (Bld) [#/Vol] 219 10*3/uL [facility] RBC (Bld) [#/Vol] 3.98 10*6/uL Low [facility] WBC (Bld) [#/Vol] 6.5 10*3/uL [facility] Basophils (Bld) [#/Vol] 0.03 x10*3/uL Normal 0.00-0.10 [facility] Comment on above: Performed By: #### 2 4331-1 #### OMERO KNIGHT ([id number]) [facility] ([facility]) [address] [place] [address] 54368 Basophils/100 WBC (Bld) 0.5 % Normal 0.0-2.0 [facility] Comment on above: Performed By: #### 2 4331-1 #### OMERO KNIGHT ([id number]) [facility] ([facility]) [address] [place] [address] 32136 Eosinophils (Bld) [#/Vol] 0.15 x10*3/uL Normal 0.00-0.40 [facility] Comment on above: Performed By: #### 2 4331-1 #### OMERO KNIGHT ([id number]) [facility] ([facility]) [address] [place] [address] 35215 Eosinophils/100 WBC (Bld) 2.3 % Normal 0.0-6.0 [facility] Comment on above: Performed By: #### 2 4331-1 #### OMERO KNIGHT (65130) [facility] ([facility]) [address] [place] [address] 36939 Erythrocyte distribution width (RBC) [Ratio] 15.4 % High 11.5-14.5 [facility] Comment on above: Performed By: #### 2 4331-1 #### OMERO KNIGHT (21751) [facility] ([facility]) [address] [place] [address] 42447 Hematocrit (Bld) [Volume fraction] 33.4 % Low 36.0-46.0 [facility] Comment on above: Performed By: #### 2 4331-1 #### OMERO KNIGHT (27183) [facility] ([facility]) [address] [place] [address] 90732 Hemoglobin (Bld) [Mass/Vol] 10.6 g/dL Low 12.0-16.0 [facility] Comment on above: Performed By: #### 2 4331-1 #### OMERO KNIGHT ([id number]) [facility] ([facility]) [address] [place] [address] 17508 Immature granulocytes (Bld) [#/Vol] 0.02 x10*3/uL Normal 0.00-0.50 [facility] Comment on above: Performed By: #### 2 4331-1 #### OMERO KNIGHT (92394) [facility] ([facility]) [address] [place] [address] 12670 Immature granulocytes/100 WBC (Bld) 0.3 % Normal 0.0-0.9 [facility] Comment on above: Result Comment: Martina ture Granulocyte Count (IG) includes promyelocytes, myelocytes and metamyelocytes but does not include bands. Percent differential counts (%) should be interpreted in the context of the absolute cell counts (cells/UL). Performed By: #### 2 4331-1 #### OMERO KNIGHT ([id number]) [facility] ([facility]) [address] [place] [address] 76567 Lymphocytes (Bld) [#/Vol] 2.41 x10*3/uL Normal 0.80-3.00 [facility] Comment on above: Performed By: #### 2 4331-1 #### OMERO KNIGHT ([id number]) [facility] ([facility]) [address] [place] [address] 18543 Lymphocytes/100 WBC (Bld) 37.4 % Normal 13.0-44.0 [facility] Comment on above: Performed By: #### 2 4331-1 #### OMERO KNIGHT (91192) [facility] ([facility]) [address] [place] [address] 65509 MCH (RBC) [Entitic mass] 26.6 pg Normal 26.0-34.0 [facility] Comment on above: Performed By: #### 2 4331-1 #### OMERO KNIGHT (19113) [facility] ([facility]) [address] [place] [address] 11376 MCHC (RBC) [Mass/Vol] 31.7 g/dL Low 32.0-36.0 [facility] Comment on above: Performed By: #### 2 4331-1 #### OMERO KNIGHT ([id number]) [facility] ([facility]) [address] [place] [address] 73228 MCV (RBC) [Entitic vol] 84 fL Normal 80-100 [facility] Comment on above: Performed By: #### 2 4331-1 #### OMERO KNIGHT (65997) [facility] ([facility]) [address] [place] [address] 89649 Monocytes (Bld) [#/Vol] 0.56 x10*3/uL Normal 0.05-0.80 [facility] Comment on above: Performed By: #### 2 4331-1 #### OMERO KNIGHT (73845) [facility] ([facility]) [address] [place] [address] 28303 Monocytes/100 WBC (Bld) 8.7 % Normal 2.0-10.0 [facility] Comment on above: Performed By: #### 2 4331-1 #### OMERO KNIGHT ([id number]) [facility] ([facility]) [address] [place] [address] 46509 Neutrophils (Bld) [#/Vol] 3.28 x10*3/uL Normal 1.60-5.50 [facility] Comment on above: Result Comment: Perc ent differential counts (%) should be interpreted in the context of the absolute cell counts (cells/uL). Performed By: #### 2 4331-1 #### OMERO KNIGHT (32655) [facility] ([facility]) [address] [place] [address] 95777 Neutrophils/100 WBC (Bld) 50.8 % Normal 40.0-80.0 [facility] Comment on above: Performed By: #### 2 4331-1 #### OMERO KNIGHT ([id number]) [facility] ([facility]) [address] [place] [address] 86172 Nucleated RBC/100 WBC (Bld) [Ratio] 0.0 /100 WBCs Normal 0.0-0.0 [facility] Comment on above: Performed By: #### 2 4331-1 #### OMERO KNIGHT (75406) [facility] ([facility]) [address] [place] [address] 86791 Platelets (Bld) [#/Vol] 219 x10*3/uL Normal 150-450 [facility] [facility] Comment on above: Performed By: #### 2 4331-1 #### OMERO KNIGHT ([id number]) [facility] ([facility]) [address] [place] [address] 68383 RBC (Bld) [#/Vol] 3.98 x10*6/uL Low 4.00-5.20 [facility] Comment on above: Performed By: #### 2 4331-1 #### OMERO KNIGHT ([id number]) [facility] ([facility]) [address] [place] [address] 78955 WBC (Bld) [#/Vol] 6.5 x10*3/uL Normal 4.4-11.3 [facility] Comment on above: Performed By: #### 2 4331-1 #### OMERO KNIGHT ([id number]) [facility] ([facility]) [address] [place] [address] 87705 Glucose Test strip manual (B ld) [Mass/Vol]on 11-11-2023 Glucose [Mass/Vol] 132 mg/dL High 74 - 99 mg/dL [facility] Interpretation and review of laboratory results Abnormal [facility] Glucose [Mass/Vol] 132 mg/dL High 74-99 [facility] Comment on above: Performed By: #### 2 132-9 #### OMERO KNIGHT ([id number]) [facility] ([facility]) [address] [place] [address] 11587 Glucose [Mass/Vol] 139 mg/dL High 74 - 99 mg/dL [facility] Interpretation and review of laboratory results Abnormal [facility] Glucose [Mass/Vol] 139 mg/dL High 74-99 [facility] Comment on above: Performed By: #### 2 4331-1 #### OMERO KNIGHT ([id number]) [facility] ([facility]) [address] [place] [address] 01907 Glucose [Mass/Vol] 164 mg/dL High 74 - 99 mg/dL [facility] Interpretation and review of laboratory results Abnormal [facility] Glucose [Mass/Vol] 164 mg/dL High 74-99 [facility] Comment on above: Performed By: #### 2 4331-1 #### OMERO KNIGHT ([id number]) [facility] ([facility]) [address] [place] [address] 14093 Glucose [Mass/Vol] 119 mg/dL High 74 - 99 mg/dL [facility] Interpretation and review of laboratory results Abnormal [facility] Glucose [Mass/Vol] 119 mg/dL High 74-99 [facility] Comment on above: Performed By: #### 2 4331-1 #### OMERO KNIGHT ([id number]) [facility] ([facility]) [address] [place] [address] Magnesiumon 11-11-2023 Magnesium [Mass/Vol] 2.22 mg/dL 1.60 - 2.40 mg/dL [facility] Magnesium [Mass/Vol] 2.22 mg/dL Normal 1.60-2.40 [facility] Comment on above: Performed By: #### 2 4331-1 #### OMERO KNIGHT ([id number]) [facility] ([facility]) [address] [place] [address] Magnesium [Mass/Vol] 1.41 mg/dL Low 1.60 - 2.40 mg/dL [facility] Magnesium [Mass/Vol] 1.41 mg/dL Low 1.60-2.40 [facility] Comment on above: Performed By: #### 2 4331-1 #### OMERO KNIGHT ([id number]) [facility] ([facility]) [address] [place] [address] Magnesium [Mass/Vol]on 11-10 Interpretation and review of laboratory results Normal [facility] No Panel Informationon 11-10 [facility] Interpretation and review of laboratory results Abnormal [facility] Renal function 2000 panelon 11-11-2023 Albumin BCP dye [Mass/Vol] 2.6 g/dL Low 3.4 - 5.0 g/dL [facility] Anion gap [Moles/Vol] 10 mmol/L 10 - 2 0 mmol/L [facility] Calcium [Mass/Vol] 8.3 mg/dL Low 8.6 - 10. 6 mg/dL [facility] Chloride [Moles/Vol] 93 mmol/L Low 98 - 10 7 mmol/L [facility] CO2 [Moles/Vol] 35 mmol/L High 21 - 32 mmol/L [facility] Creatinine [Mass/Vol] 0.79 mg/dL 0.50 - 1.05 mg/dL [facility] GFR/1.73 sq M.predicted among non-blacks MDRD (S/P/Bld) [Vol rate/Area] 78 mL/min/{1.73_m2} - PINF [facility] Glucose [Mass/Vol] 166 mg/dL High 74 - 99 mg/dL [facility] Interpretation and review of laboratory results Abnormal [facility] Phosphate [Mass/Vol] 2.0 mg/dL Low 2.5 - 4 .9 mg/dL [facility] Potassium [Moles/Vol] 4.1 mmol/L 3.5 - 5.3 mmol/L [facility] Sodium [Moles/Vol] 134 mmol/L Low 136 - 145 mmol/L [facility] Urea nitrogen [Mass/Vol] 14 mg/dL 6 - 23 mg/dL [facility] Albumin BCP dye [Mass/Vol] 2.6 g/dL Low 3.4-5.0 [facility] Comment on above: Performed By: #### 2 4331-1 #### OMERO KNIGHT ([id number]) [facility] ([facility]) [address] [place] [address] Anion gap [Moles/Vol] 10 mmol/L Normal 10-20 [facility] Comment on above: Performed By: #### 2 4331-1 #### OMERO KNIGHT ([id number]) [facility] ([facility]) [address] [place] [address] Calcium [Mass/Vol] 8.3 mg/dL Low 8.6-10.6 [facility] Comment on above: Performed By: #### 2 4331-1 #### OMERO KNIGHT ([id number]) [facility] ([facility]) [address] [place] [address] Chloride [Moles/Vol] 93 mmol/L Low 98-107 [facility] Comment on above: Performed By: #### 2 4331-1 #### OMERO KNIGHT ([id number]) [facility] ([facility]) [address] [place] [address] CO2 [Moles/Vol] 35 mmol/L High 21-32 [facility] Comment on above: Performed By: #### 2 4331-1 #### OMERO KNIGHT (45035) [facility] ([facility]) [facility] [place] [address] Creatinine [Mass/Vol] 0.79 mg/dL Normal 0.50-1.05 [facility] Comment on above: Performed By: #### 2 4331-1 #### OMERO KNIGHT ([id number]) [facility] ([facility]) [address] [place] [address] 00860 Glomerular filtration rate/1.73 sq M.predicted 78 mL/min/1.73m*2 Normal >60 [facility] Comment on above: Result Comment: Calc ulations of estimated GFR are performed using the 2020 CKD-EPI Study Refit equation without the race variable for the IDMS-Traceable creatinine methods. https://jasn.asnjournals.org/content/early/ASN.66878 84696 Performed By: #### 2 4331-1 #### OMERO KNIGHT ([id number]) [facility] ([facility]) [facility] [place] [address] Glucose [Mass/Vol] 166 mg/dL High 74-99 [facility] Comment on above: Performed By: #### 2 4331-1 #### OMERO KNIGHT ([id number]) [facility] ([facility]) [address] [place] [address] 34485 Phosphate [Mass/Vol] 2.0 mg/dL Low 2.5-4.9 [facility] Comment on above: Result Comment: The performance characteristics of phosphorus testing in heparinized plasma have been validated by the individual laboratory site where testing is performed. Testing on heparinized plasma is not approved by the FDA; however, such approval is not necessary. Performed By: #### 2 4331-1 #### OMERO KNIGHT ([id number]) [facility] ([facility]) [facility] [place] [address] Potassium [Moles/Vol] 4.1 mmol/L Normal 3.5-5.3 [facility] Comment on above: Performed By: #### 2 4331-1 #### OMERO KNIGHT ([id number]) [facility] ([facility]) [address] [place] [address] Sodium [Moles/Vol] 134 mmol/L Low 136-145 [facility] Comment on above: Performed By: #### 2 4331-1 #### OMERO KNIGHT (84267) [facility] ([facility]) [facility] [place] [address] Urea nitrogen [Mass/Vol] 14 mg/dL Normal 6-23 [facility] Comment on above: Performed By: #### 2 4331-1 #### OMERO KNIGHT ([id number]) [facility] ([facility]) [facility] [place] [address] Albumin BCP dye [Mass/Vol] 2.6 g/dL Low 3.4 - 5.0 g/dL [facility] Anion gap [Moles/Vol] 10 mmol/L 10 - 2 0 mmol/L [facility] Calcium [Mass/Vol] 8.6 mg/dL 8.6 - 10. 6 mg/dL [facility] Chloride [Moles/Vol] 95 mmol/L Low 98 - 10 7 mmol/L [facility] CO2 [Moles/Vol] 33 mmol/L High 21 - 32 mmol/L [facility] Creatinine [Mass/Vol] 0.80 mg/dL 0.50 - 1.05 mg/dL [facility] GFR/1.73 sq M.predicted among non-blacks MDRD (S/P/Bld) [Vol rate/Area] 77 mL/min/{1.73_m2} - PINF [facility] Glucose [Mass/Vol] 139 mg/dL High 74 - 99 mg/dL [facility] Phosphate [Mass/Vol] 2.7 mg/dL 2.5 - 4 .9 mg/dL [facility] Potassium [Moles/Vol] 3.0 mmol/L Low 3.5 - 5.3 mmol/L [facility] Sodium [Moles/Vol] 135 mmol/L Low 136 - 145 mmol/L [facility] Urea nitrogen [Mass/Vol] 15 mg/dL 6 - 23 mg/dL [facility] Albumin BCP dye [Mass/Vol] 2.6 g/dL Low 3.4-5.0 [facility] Comment on above: Performed By: #### 2 4331-1 #### OMERO KNIGHT ([id number]) [facility] ([facility]) [facility] [place] [address] Anion gap [Moles/Vol] 10 mmol/L Normal 10-20 [facility] Comment on above: Performed By: #### 2 4331-1 #### OMERO KNIGHT (40054) [facility] ([facility]) [address] [place] [address] 46199 Calcium [Mass/Vol] 8.6 mg/dL Normal 8.6-10.6 [facility] Comment on above: Performed By: #### 2 4331-1 #### OMERO KNIGHT (49683) [facility] ([facility]) [address] [place] [address] 26971 Chloride [Moles/Vol] 95 mmol/L Low 98-107 [facility] Comment on above: Performed By: #### 2 4331-1 #### OMERO KNIGHT (54888) [facility] ([facility]) [address] [place] [address] 63567 CO2 [Moles/Vol] 33 mmol/L High 21-32 [facility] Comment on above: Performed By: #### 2 4331-1 #### OMERO KNIGHT (06203) [facility] ([facility]) [address] [place] [address] 44920 Creatinine [Mass/Vol] 0.80 mg/dL Normal 0.50-1.05 [facility] Comment on above: Performed By: #### 2 4331-1 #### OMERO KNIGHT (05943) [facility] ([facility]) [address] [place] [address] 39645 Glomerular filtration rate/1.73 sq M.predicted 77 mL/min/1.73m*2 Normal >60 [facility] Comment on above: Result Comment: Calc ulations of estimated GFR are performed using the 2020 CKD-EPI Study Refit equation without the race variable for the IDMS-Traceable creatinine methods. https://jasn.asnjournals.org/content//ASN.22761 50632 Performed By: #### 2 4331-1 #### OMERO KNIGHT ([id number]) [facility] ([facility]) [address] [place] [address] 34955 Glucose [Mass/Vol] 139 mg/dL High 74-99 [facility] Comment on above: Performed By: #### 2 4331-1 #### OMERO KNIGHT (04532) [facility] ([facility]) [address] [place] [address] 90300 Phosphate [Mass/Vol] 2.7 mg/dL Normal 2.5-4.9 [facility] Comment on above: Result Comment: The performance characteristics of phosphorus testing in heparinized plasma have been validated by the individual laboratory site where testing is performed. Testing on heparinized plasma is not approved by the FDA; however, such approval is not necessary. Performed By: #### 2 4331-1 #### OMERO KNIGHT (08475) [facility] ([facility]) [address] [place] [address] 21111 Potassium [Moles/Vol] 3.0 mmol/L Low 3.5-5.3 [facility] Comment on above: Performed By: #### 2 4331-1 #### OMERO KNIGHT ([id number]) [facility] ([facility]) [address] [place] [address] 29432 Sodium [Moles/Vol] 135 mmol/L Low 136-145 [facility] Comment on above: Performed By: #### 2 4331-1 #### OMERO KNIGHT (25627) [facility] ([facility]) [address] [place] [address] 38598 Urea nitrogen [Mass/Vol] 15 mg/dL Normal 6-23 [facility] Comment on above: Performed By: #### 2 4331-1 #### OMERO KNIGHT ([id number]) [facility] ([facility]) [address] [place] [address] 03613 Glucose Test strip manual (B ld) [Mass/Vol]on 11-10-2023 Glucose [Mass/Vol] 142 mg/dL High 74 - 99 mg/dL [facility] Interpretation and review of laboratory results Abnormal [facility] Glucose [Mass/Vol] 142 mg/dL High 74-99 [facility] Comment on above: Performed By: #### 2 4331-1 #### OMERO KNIGHT (64626) [facility] ([facility]) [address] [place] [address] 92021 Glucose [Mass/Vol] 116 mg/dL High 74 - 99 mg/dL [facility] Interpretation and review of laboratory results Abnormal [facility] Glucose [Mass/Vol] 116 mg/dL High 74-99 [facility] Comment on above: Performed By: #### 2 4331-1 #### OMERO KNIGHT (55703) [facility] ([facility]) [address] [place] [address] 74392 Glucose [Mass/Vol] 159 mg/dL High 74 - 99 mg/dL [facility] Interpretation and review of laboratory results Abnormal [facility] Glucose [Mass/Vol] 159 mg/dL High 74-99 [facility] Comment on above: Performed By: #### 2 4323-8 #### OMERO KNIGHT (11545) [facility] ([facility]) [address] [place] [address] 38563 Glucose [Mass/Vol] 170 mg/dL High 74 - 99 mg/dL [facility] Interpretation and review of laboratory results Abnormal [facility] Glucose [Mass/Vol] 170 mg/dL High 74-99 [facility] Comment on above: Performed By: #### 2 4323-8 #### OMERO KNIGHT (38444) [facility] ([facility]) [address] [place] [address] 41034 Glucose [Mass/Vol] 132 mg/dL High 74 - 99 mg/dL [facility] Interpretation and review of laboratory results Abnormal [facility] Glucose [Mass/Vol] 132 mg/dL High 74-99 [facility] Comment on above: Performed By: #### 2 4323-8 #### OMERO KNIGHT (18907) [facility] ([facility]) [facility] [place] [address] Vancomycinon 11-10-2023 Vancomycin [Mass/Vol] 17.6 ug/mL 5.0 - 20.0 ug/mL [facility] Vancomycin [Mass/Vol] 17.6 ug/mL Normal 5.0-20.0 [facility] Comment on above: Order Comment: Vanco [...] By: #### 2 4323-8 #### OMERO KNIGHT ([id number]) [facility] ([facility]) [address] [place], [place] [id number] Vancomycin [Mass/Vol]on Interpretation and review of laboratory results [facility] Bacteria identifiedon 2023 Bacteria identified Cx Nom (Bld) Test: Blood Culture Specimen Source: Peripheral Venipuncture Specimen Type: Blood culture Specimen Date: 11/09/2023 1110 Result Date: 11/13/2023 1300 Result Status: Final result Abnormal: No Resulting Lab: [facility] [address] [facility] [address] CULTURE No growth at 4 days - FINAL REPORT [facility] Comment on above: Performed By: #### 2 4323-8 #### OMERO KNIGHT ([id number]) [facility] ([facility]) [address] [place] [address] CBC W Auto Differential pane l (Bld)on 11-09-2023 Basophils (Bld) [#/Vol] 0.05 10*3/uL [facility] Basophils/100 WBC (Bld) 0.6 % 0.0 - 2.0 % [facility] Eosinophils (Bld) [#/Vol] 0.16 10*3/uL [facility] Eosinophils/100 WBC (Bld) 1.8 % 0.0 - 6.0 % [facility] Erythrocyte distribution width (RBC) [Ratio] 15.2 % High 11.5 - 14.5 % [facility] Hematocrit (Bld) [Volume fraction] 34.5 % Low 36.0 - 46.0 % [facility] Hemoglobin (Bld) [Mass/Vol] 10.8 g/dL Low 12.0 - 16.0 g/dL [facility] Immature granulocytes (Bld) [#/Vol] 0.05 10*3/uL [facility] Immature granulocytes/100 WBC (Bld) 0.6 % 0.0 - 0.9 % [facility] Interpretation and review of laboratory results Abnormal [facility] Lymphocytes (Bld) [#/Vol] 3.08 10*3/uL High [facility] Lymphocytes/100 WBC (Bld) 34.8 % 13.0 - 44.0 % [facility] MCH (RBC) [Entitic mass] 26.5 pg 26.0 - 34.0 pg [facility] MCHC (RBC) [Mass/Vol] 31.3 g/dL Low 32.0 - 36.0 g/dL [facility] MCV (RBC) [Entitic vol] 85 fL 80 - 100 fL [facility] Monocytes (Bld) [#/Vol] 0.67 10*3/uL [facility] Monocytes/100 WBC (Bld) 7.6 % 2.0 - 10.0 % [facility] Neutrophils (Bld) [#/Vol] 4.83 10*3/uL [facility] Neutrophils/100 WBC (Bld) 54.6 % 40.0 - 80.0 % [facility] Nucleated RBC/100 WBC (Bld) [Ratio] 0.0 % [facility] Platelets (Bld) [#/Vol] 263 10*3/uL [facility] RBC (Bld) [#/Vol] 4.08 10*6/uL [facility] WBC (Bld) [#/Vol] 8.8 10*3/uL [facility] Basophils (Bld) [#/Vol] 0.05 x10*3/uL Normal 0.00-0.10 [facility] Comment on above: Performed By: #### 1 9123-9 #### OMERO KNIGHT (46320) [facility] ([facility]) [address] [place] [address] 21391 Basophils/100 WBC (Bld) 0.6 % Normal 0.0-2.0 [facility] Comment on above: Performed By: #### 1 9123-9 #### OMERO KNIGHT (88598) [facility] ([facility]) [address] [place] [address] 42315 Eosinophils (Bld) [#/Vol] 0.16 x10*3/uL Normal 0.00-0.40 [facility] Comment on above: Performed By: #### 1 9123-9 #### OMERO KNIGHT (40988) [facility] ([facility]) [address] [place] [address] 11763 Eosinophils/100 WBC (Bld) 1.8 % Normal 0.0-6.0 [facility] Comment on above: Performed By: #### 1 9123-9 #### OMERO KNIGHT (93844) [facility] ([facility]) [address] [place] [address] 61996 Erythrocyte distribution width (RBC) [Ratio] 15.2 % High 11.5-14.5 [facility] Comment on above: Performed By: #### 1 9123-9 #### OMERO KNIGHT (46128) [facility] ([facility]) [address] [place] [address] 12243 Hematocrit (Bld) [Volume fraction] 34.5 % Low 36.0-46.0 [facility] Comment on above: Performed By: #### 1 9123-9 #### OMERO KNIGHT (66134) [facility] ([facility]) [address] [place] [address] 50906 Hemoglobin (Bld) [Mass/Vol] 10.8 g/dL Low 12.0-16.0 [facility] Comment on above: Performed By: #### 1 9123-9 #### OMERO KNIGHT (90944) [facility] ([facility]) [address] [place] [address] 02502 Immature granulocytes (Bld) [#/Vol] 0.05 x10*3/uL Normal 0.00-0.50 [facility] Comment on above: Performed By: #### 1 9123-9 #### OMERO KNIGHT (21002) [facility] ([facility]) [address] [place] [address] 67294 Immature granulocytes/100 WBC (Bld) 0.6 % Normal 0.0-0.9 [facility] Comment on above: Result Comment: Martina ture Granulocyte Count (IG) includes promyelocytes, myelocytes and metamyelocytes but does not include bands. Percent differential counts (%) should be interpreted in the context of the absolute cell counts (cells/UL). Performed By: #### 1 9123-9 #### OMERO KNIGHT (10209) [facility] ([facility]) [address] [place] [address] 06135 Lymphocytes (Bld) [#/Vol] 3.08 x10*3/uL High 0.80-3.00 [facility] Comment on above: Performed By: #### 1 9123-9 #### OMERO KNIGHT (00192) [facility] ([facility]) [address] [place] [address] 22344 Lymphocytes/100 WBC (Bld) 34.8 % Normal 13.0-44.0 [facility] Comment on above: Performed By: #### 1 9123-9 #### OMERO KNIGHT (15621) [facility] ([facility]) [address] [place] [address] 20264 MCH (RBC) [Entitic mass] 26.5 pg Normal 26.0-34.0 [facility] Comment on above: Performed By: #### 1 9123-9 #### OMERO KNIGHT (70020) [facility] ([facility]) [address] [place] [address] 16611 MCHC (RBC) [Mass/Vol] 31.3 g/dL Low 32.0-36.0 [facility] Comment on above: Performed By: #### 1 9123-9 #### OMERO KNIGHT (31696) [facility] ([facility]) [address] [place] [address] 54226 MCV (RBC) [Entitic vol] 85 fL Normal 80-100 [facility] Comment on above: Performed By: #### 1 9123-9 #### OMERO KNIGHT (70440) [facility] ([facility]) [address] [place] [address] 84754 Monocytes (Bld) [#/Vol] 0.67 x10*3/uL Normal 0.05-0.80 [facility] Comment on above: Performed By: #### 1 9123-9 #### OMERO KNIGHT (60870) [facility] ([facility]) [address] [place] [address] 98971 Monocytes/100 WBC (Bld) 7.6 % Normal 2.0-10.0 [facility] Comment on above: Performed By: #### 1 9123-9 #### OMERO KNIGHT (62569) [facility] ([facility]) [address] [place] [address] 24486 Neutrophils (Bld) [#/Vol] 4.83 x10*3/uL Normal 1.60-5.50 [facility] Comment on above: Result Comment: Perc ent differential counts (%) should be interpreted in the context of the absolute cell counts (cells/uL). Performed By: #### 1 9123-9 #### OMERO KNIGHT ([id number]) [facility] ([facility]) [address] [place] [address] 32153 Neutrophils/100 WBC (Bld) 54.6 % Normal 40.0-80.0 [facility] Comment on above: Performed By: #### 1 9123-9 #### OMERO KNIGHT (08991) [facility] ([facility]) [address] [place] [address] 43668 Nucleated RBC/100 WBC (Bld) [Ratio] 0.0 /100 WBCs Normal 0.0-0.0 [facility] Comment on above: Performed By: #### 1 9123-9 #### OMERO KNIGHT ([id number]) [facility] ([facility]) [address] [place] [address] 35788 Platelets (Bld) [#/Vol] 263 x10*3/uL Normal 150-450 [facility] Comment on above: Performed By: #### 1 9123-9 #### OMERO KNIGHT (49754) [facility] ([facility]) [address] [place] [address] 86385 RBC (Bld) [#/Vol] 4.08 x10*6/uL Normal 4.00-5.20 [facility] Comment on above: Performed By: #### 1 9123-9 #### OMERO KNIGHT (68927) [facility] ([facility]) [address] [place] [address] 59037 WBC (Bld) [#/Vol] 8.8 x10*3/uL Normal 4.4-11.3 [facility] Comment on above: Performed By: #### 1 9123-9 #### OMERO NKIGHT ([id number]) [facility] DISTRICT) [address] [place] [address] GUIDED PERCUTANEOUS BIOPS Y BONE DEEPon 11-09-2023 CT GUIDED PERCUTANEOUS BIOPSY BONE DEEP Interpreted By: Caron Donaldson and Calo Sean-Matthew STUDY: CT-guided bone marrow biopsy; 11/13/2023 11:07 am INDICATION: Signs/Symptoms:Bone biopsy, 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 COMPARISON: MR thoracic spine and CT thoracic spine 11/06/2023. ACCESSION NUMBER(S): [id number] ORDERING CLINICIAN: RU ORTEGA TECHNIQUE: INTERVENTIONALIST(S): MD [...] the interventional CT scanner bed. 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 This study was interpreted at [facility], [place], [place]. MACRO: None Signed by: Caron Donaldson 11/14/2023 8:11 AM Dictation workstation: [id number] Normal [facility] Comment on above: Order Comment: Last xarelto dose was at [facility] on 11/07 at 9AM Comprehensive metabolic 2000 panelon 11-09-2023 Albumin BCP dye [Mass/Vol] 2.8 g/dL Low 3.4 - 5.0 g/dL [facility] ALP [Catalytic activity/Vol] 134 U/L 33 - 136 U/L [facility] ALT With P-5'-P [Catalytic activity/Vol] 12 U/L 7 - 45 U/L [facility] Anion gap [Moles/Vol] 15 mmol/L 10 - 2 0 mmol/L [facility] AST With P-5'-P [Catalytic activity/Vol] 22 U/L 9 - 39 U/L [facility] Bilirubin [Mass/Vol] 0.4 mg/dL 0.0 - 1 .2 mg/dL [facility] Calcium [Mass/Vol] 8.4 mg/dL Low 8.6 - 10. 6 mg/dL [facility] Chloride [Moles/Vol] 96 mmol/L Low 98 - 10 7 mmol/L [facility] CO2 [Moles/Vol] 25 mmol/L 21 - 32 mmol/L [facility] Creatinine [Mass/Vol] 0.80 mg/dL 0.50 - 1.05 mg/dL [facility] GFR/1.73 sq M.predicted among non-blacks MDRD (S/P/Bld) [Vol rate/Area] 77 mL/min/{1.73_m2} - PINF [facility] Glucose [Mass/Vol] 115 mg/dL High 74 - 99 mg/dL [facility] Potassium [Moles/Vol] 3.7 mmol/L 3.5 - 5.3 mmol/L [facility] Protein [Mass/Vol] 5.8 g/dL Low 6.4 - 8.2 g/dL [facility] Sodium [Moles/Vol] 132 mmol/L Low 136 - 145 mmol/L [facility] Urea nitrogen [Mass/Vol] 14 mg/dL 6 - 23 mg/dL [facility] Albumin BCP dye [Mass/Vol] 2.8 g/dL Low 3.4-5.0 [facility] Comment on above: Performed By: #### 1 9123-9 #### OMERO KNIGHT ([id number]) [facility] ([facility]) [address] [place] [address] ALP [Catalytic activity/Vol] 134 U/L Normal 33-136 [facility] Comment on above: Performed By: #### 1 9123-9 #### OMERO KNIGHT ([id number]) [facility] ([facility]) [address] [place] [address] 80368 ALT With P-5'-P [Catalytic activity/Vol] 12 U/L Normal 7-45 [facility] Comment on above: Result Comment: Madhavi ents treated with Sulfasalazine may generate falsely decreased results for ALT. Performed By: #### 1 9123-9 #### OMERO KNIGHT ([id number]) [facility] ([facility]) [address] [place] [address] 18294 Anion gap [Moles/Vol] 15 mmol/L Normal 10-20 [facility] Comment on above: Performed By: #### 1 9123-9 #### OMERO KNIGHT ([id number]) [facility] ([facility]) [address] [place] [address] 95901 AST With P-5'-P [Catalytic activity/Vol] 22 U/L Normal 9-39 [facility] Comment on above: Performed By: #### 1 9123-9 #### OMERO KNIGHT ([id number]) [facility] ([facility]) [address] [place] [address] 30041 Bilirubin [Mass/Vol] 0.4 mg/dL Normal 0.0-1.2 [facility] Comment on above: Performed By: #### 1 9123-9 #### OMERO KNIGHT ([id number]) [facility] ([facility]) [address] [place] [address] Calcium [Mass/Vol] 8.4 mg/dL Low 8.6-10.6 [facility] Comment on above: Performed By: #### 1 9123-9 #### OMERO KNIGHT ([id number]) [facility] ([facility]) [address] [place] [address] Chloride [Moles/Vol] 96 mmol/L Low 98-107 [facility] Comment on above: Performed By: #### 1 9123-9 #### OMERO KNIGHT ([id number]) [facility] ([facility]) [address] [place] [address] 31546 CO2 [Moles/Vol] 25 mmol/L Normal 21-32 [facility] Comment on above: Performed By: #### 1 9123-9 #### OMERO KNIGHT ([id number]) [facility] ([facility]) [address] [place] [address] 81606 Creatinine [Mass/Vol] 0.80 mg/dL Normal 0.50-1.05 [facility] Comment on above: Performed By: #### 1 9123-9 #### OMERO KNIGHT ([id number]) [facility] ([facility]) [address] [place] [address] 15206 Glomerular filtration rate/1.73 sq M.predicted 77 mL/min/1.73m*2 Normal >60 [facility] Comment on above: Result Comment: Calc ulations of estimated GFR are performed using the 2020 CKD-EPI Study Refit equation without the race variable for the IDMS-Traceable creatinine methods. https://jasn.asnjournals.org/content/early/ASN.44375 51325 Performed By: #### 1 9123-9 #### OMERO KNIGHT ([id number]) [facility] ([facility]) [facility] [place] [address] Glucose [Mass/Vol] 115 mg/dL High 74-99 [facility] Comment on above: Performed By: #### 1 9123-9 #### OMERO KNIGHT ([id number]) [facility] ([facility]) [address] [place] [address] 96831 Potassium [Moles/Vol] 3.7 mmol/L Normal 3.5-5.3 [facility] Comment on above: Performed By: #### 1 9123-9 #### OMERO KNIGHT ([id number]) [facility] ([facility]) [address] [place] [address] 56027 Protein [Mass/Vol] 5.8 g/dL Low 6.4-8.2 [facility] Comment on above: Performed By: #### 1 9123-9 #### OMERO KNIGHT ([id number]) [facility] ([facility]) [address] [place] [address] 36695 Sodium [Moles/Vol] 132 mmol/L Low 136-145 [facility] Comment on above: Performed By: #### 1 9123-9 #### OMERO KNIGHT ([id number]) [facility] ([facility]) [address] [place] [address] 09159 Urea nitrogen [Mass/Vol] 14 mg/dL Normal 6-23 [facility] Comment on above: Performed By: #### 1 9123-9 #### OMERO KNIGHT ([id number]) [facility] ([facility]) [address] [place] [address] 99768 ECG 12-LEADon 11-09-2023 ECG 12-LEAD Ventricular Rate 73 Atrial Rate 73 P-R Interval 196 QRS Duration 106 Q-T Interval 384 QTC Calculation(Bazett) 423 P [place] -24 R [place] -46 T [place] -41 QRS Count 12 Q Onset 205 P Onset 107 P Offset 148 T Offset 397 QTC Fredericia 410 Diagnosis Atrial fibrillation Left axis deviation Low voltage QRS Cannot rule out Anterior infarct , age undetermined Abnormal ECG Confirmed by Fabio Bee ([id number]) on 11/15/2023 2:34:28 PM Normal [facility] Glucose Test strip manual (B ld) [Mass/Vol]on 11-09-2023 Glucose [Mass/Vol] 140 mg/dL High 74 - 99 mg/dL [facility] Interpretation and review of laboratory results Abnormal [facility] Glucose [Mass/Vol] 140 mg/dL High 74-99 [facility] Comment on above: Performed By: #### 2 4323-8 #### OMERO KNIGHT ([id number]) [facility] ([facility]) [address] [place] [address] 17753 Glucose [Mass/Vol] 118 mg/dL High 74 - 99 mg/dL [facility] Interpretation and review of laboratory results Abnormal [facility] Glucose [Mass/Vol] 118 mg/dL High 74-99 [facility] Comment on above: Performed By: #### 2 4323-8 #### OMERO KNIGHT ([id number]) [facility] ([facility]) [address] [place] [address] 69648 Glucose [Mass/Vol] 120 mg/dL High 74 - 99 mg/dL [facility] Interpretation and review of laboratory results Abnormal [facility] Glucose [Mass/Vol] 120 mg/dL High 74-99 [facility] Comment on above: Performed By: #### 2 4323-8 #### OMERO KNIGHT ([id number]) [facility] ([facility]) [address] [place] [address] 52263 Glucose [Mass/Vol] 142 mg/dL High 74 - 99 mg/dL [facility] Interpretation and review of laboratory results Abnormal [facility] Glucose [Mass/Vol] 142 mg/dL High 74-99 [facility] Comment on above: Performed By: #### 2 4323-8 #### OMERO KNIGHT ([id number]) [facility] ([facility]) [address] [place] [address] 19108 Glucose [Mass/Vol] 139 mg/dL High 74 - 99 mg/dL [facility] Interpretation and review of laboratory results Abnormal [facility] Glucose [Mass/Vol] 139 mg/dL High 74-99 [facility] Comment on above: Performed By: #### 1 9123-9 #### OMERO KNIGHT ([id number]) [facility] ([facility]) [address] [place] [address] Magnesiumon 11-09-2023 Magnesium [Mass/Vol] 1.30 mg/dL Low 1.60 - 2.40 mg/dL [facility] Magnesium [Mass/Vol] 1.30 mg/dL Low 1.60-2.40 [facility] Comment on above: Performed By: #### 1 9123-9 #### OMERO KNIGHT ([id number]) [facility] ([facility]) [address] [place] [address] No Panel Informationon 11-08 Interpretation and review of laboratory results Abnormal [facility] Urinalysis complete panel (U )on 11-09-2023 Appearance (U) Clear Clear [facility] Bilirubin (U) [Mass/Vol] Negative NEGATIVE [facility] Color (U) Light-Yellow Light-Yellow , Yellow, Dark-Yellow [facility] Glucose Auto test strip (U) [Mass/Vol] Normal Normal mg/dL [facility] Interpretation and review of laboratory results Normal [facility] Ketones (U) [Mass/Vol] Negative NEGAT JORGE mg/dL [facility] Leukocyte esterase Auto test strip Ql (U) Negative NEGATIVE [facility] Nitrite Auto test strip Ql (U) Negative NEGATIVE [facility] pH (U) 5.5 [pH] 5.0, 5.5, 6.0, 6.5, 7.0, 7.5, 8.0 [facility] Protein (U) [Mass/Vol] Negative NEGAT JORGE, 10 (TRACE), 20 (TRACE) mg/dL [facility] RBC (U) [#/Vol] Negative NEGATIVE [facility] Specific gravity (U) [Rel density] 1.011 1.005 - 1.035 [facility] Urobilinogen (U) [Mass/Vol] Normal Normal mg/dL [facility] Appearance (U) Clear Normal Clear [facility] Comment on above: Performed By: #### 1 9123-9 #### OMERO KNIGHT ([id number]) [facility] ([facility]) [address] [place] [address] Bilirubin (U) [Mass/Vol] Negative Normal NEGATIVE [facility] Comment on above: Performed By: #### 1 9123-9 #### OMERO KNIGHT ([id number]) [facility] ([facility]) [address] [place] [address] 93714 Color (U) Light-Yellow Normal Light-Yellow , Yellow, Dark-Yellow [facility] Comment on above: Performed By: #### 1 9123-9 #### OMERO KNIGHT ([id number]) [facility] ([facility]) [address] [place] [address] 25860 Glucose Auto test strip (U) [Mass/Vol] Normal Normal Normal [facility] Comment on above: Performed By: #### 1 9123-9 #### OMERO KNIGHT ([id number]) [facility] ([facility]) [address] [place] [address] 27904 Ketones (U) [Mass/Vol] Negative Normal NEGATIVE [facility] Comment on above: Performed By: #### 1 9123-9 #### OMERO KNIGHT ([id number]) [facility] ([facility]) [address] [place] [address] 06305 Leukocyte esterase Auto test strip Ql (U) Negative Normal NEGATIVE [facility] Comment on above: Performed By: #### 1 9123-9 #### OMERO KNIGHT ([id number]) [facility] ([facility]) [address] [place] [address] 65972 Nitrite Auto test strip Ql (U) Negative Normal NEGATIVE [facility] Comment on above: Performed By: #### 1 9123-9 #### OMERO KNIGHT ([id number]) [facility] ([facility]) [address] [place] [address] 54236 pH (U) 5.5 [pH] Normal 5.0, 5.5, 6.0, 6.5, 7.0, 7.5, 8.0 [facility] Comment on above: Performed By: #### 1 9123-9 #### OMERO KNIGHT ([id number]) [facility] ([facility]) [address] [place] [address] Protein (U) [Mass/Vol] Negative Normal NEGAT JORGE, 10 (TRACE), 20 (TRACE) [facility] Comment on above: Performed By: #### 1 9123-9 #### OMERO KNIGHT ([id number]) [facility] ([facility]) [address] [place] [address] RBC (U) [#/Vol] Negative Normal NEGATIVE [facility] Comment on above: Performed By: #### 1 9123-9 #### OMERO KNIGHT ([id number]) [facility] ([facility]) [address] [place] [address] Specific gravity (U) [Rel density] 1.011 Normal 1.005-1.035 [facility] Comment on above: Performed By: #### 1 9123-9 #### OMERO KNIGHT ([id number]) [facility] ([facility]) [address] [place] [address] Urobilinogen (U) [Mass/Vol] Normal Normal Normal [facility] Comment on above: Performed By: #### 1 9123-9 #### OMERO KNIGHT ([id number]) [facility] ([facility]) [address] [place] [address] C reactive proteinon 024 CRP [Mass/Vol] 4.29 mg/dL High <1.00 [facility] Comment on above: Performed By: #### 1 988-5 ####OMERO KNIGHT ([id number])[facility] ([facility])[address] [place], [place] [address] CBC panel Auto (Bld)on 11-07 Erythrocyte distribution width (RBC) [Ratio] 15.3 % High 11.5-14.5 [facility] Comment on above: Performed By: #### 5 8410-2 ####OMERO KNIGHT ([id number])[facility] ([facility])[address] [place] [address] Hematocrit (Bld) [Volume fraction] 33.3 % Low 36.0-46.0 [facility] Comment on above: Performed By: #### 5 8410-2 ####OMERO KNIGHT ([id number])[facility] ([facility])[address] [place] [address] 38164 Hemoglobin (Bld) [Mass/Vol] 10.3 g/dL Low 12.0-16.0 [facility] Comment on above: Performed By: #### 5 8410-2 ####OMERO KNIGHT ([id number])[facility] ([facility])[address] [place] [address] 89894 MCH (RBC) [Entitic mass] 26.5 pg Normal 26.0-34.0 [facility] Comment on above: Performed By: #### 5 8410-2 ####OMERO KNIGHT ([id number])[facility] ([facility])[address] [place] [address] 13947 MCHC (RBC) [Mass/Vol] 30.9 g/dL Low 32.0-36.0 [facility] Comment on above: Performed By: #### 5 8410-2 ####OMERO KNIGHT ([id number])[facility] ([facility])[address] [place] [address] 58951 MCV (RBC) [Entitic vol] 86 fL Normal 80-100 [facility] Comment on above: Performed By: #### 5 8410-2 ####OMERO KNIGHT ([id number])[facility] ([facility])[address] [place] [address] 14739 Nucleated RBC/100 WBC (Bld) [Ratio] 0.0 /100 WBCs Normal 0.0-0.0 [facility] Comment on above: Performed By: #### 5 8410-2 ####OMERO KNIGHT ([id number])[facility] ([facility])[address] [place] [address] 57771 Platelets (Bld) [#/Vol] 228 x10*3/uL Normal 150-450 [facility] Comment on above: Performed By: #### 5 8410-2 ####OMERO KNIGHT ([id number])[facility] ([facility])[address] [place] [address] 30487 RBC (Bld) [#/Vol] 3.88 x10*6/uL Low 4.00-5.20 [facility] Comment on above: Performed By: #### 5 8410-2 ####OMERO KNIGHT ([id number])[facility] ([facility])[address] [place] [address] 07219 WBC (Bld) [#/Vol] 7.8 x10*3/uL Normal 4.4-11.3 [facility] Comment on above: Performed By: #### 5 8410-2 ####OMERO KNIGHT ([id number])[facility] ([facility])[address] [place] [address] 39010 Creatinineon 11-08-2023 Creatinine [Mass/Vol] 0.87 mg/dL Normal 0.50-1.05 [facility] Comment on above: Performed By: #### 2 160-0 ####OMERO KNIGHT ([id number])[facility] ([facility])[address] [place] [address] 65755 Creatinine [Mass/Vol]on Glomerular filtration rate/1.73 sq M.predicted 70 mL/min/1.73m*2 Normal >60 [facility] Comment on above: Result Comment: Calc ulations of estimated GFR are performed using the 2020 CKD-EPI Study Refit equation without the race variable for the IDMS-Traceable creatinine methods. https://jasn.asnjournals.org/content/early//ASN.47010 50903 Performed By: #### 2 160-0 ####OMERO KNIGHT ([id number])[facility] ([facility])[address] [place] [address] 79507 Glucose Test strip manual (B ld) [Mass/Vol]on 11-08-2023 Glucose [Mass/Vol] 140 mg/dL High 74-99 [facility] Comment on above: Performed By: #### 2 341-6 ####OMERO KNIGHT ([id number])[facility] ([facility])[address] [place] [address] 21479 Glucose [Mass/Vol] 111 mg/dL High 74-99 [facility] Comment on above: Performed By: #### 2 341-6 ####OMERO KNIGHT ([id number])[facility] ([facility])[address] [place] [address] 30611 Glucose [Mass/Vol] 130 mg/dL High 74-99 [facility] Comment on above: Performed By: #### 2 341-6 ####OMERO KNIGHT (28896)[facility] ([facility])[address] [place] [address] 51341 Glucose [Mass/Vol] 109 mg/dL High 74-99 [facility] Comment on above: Performed By: #### 2 341-6 ####OMERO KNIGHT ([id number])[facility] ([facility])[address] [place] [address] 05112 Natriuretic peptide B [Mass/ Vol]on 11-08-2023 Natriuretic peptide B (Bld) [Mass/Vol] 484 pg/mL High 0-99 [facility] Comment on above: Order Comment: <100 pg/mL - Heart failure [id number] pg/mL - Intermediate probability of acute heart failure exacerbation. Correlate with clinical context and patient history. >=300 pg/mL - Heart Failure likely. Correlate with clinical context and patient history.BNP testing is performed using different testing methodology at [facility] than at other [facility]. Direct result comparisons should only be made within the same method. Performed By: #### 3 0934-4 ####OMERO KNIGHT ([id number])[facility] ([facility])[address] [place] [address] 10224 Vancomycinon 11-08-2023 Vancomycin [Mass/Vol] 20.3 ug/mL High 5.0-20.0 [facility] Comment on above: Order Comment: Vanco mycin [...] Performed By: #### 2 0578-1 ####OMERO KNIGHT ([id number])[facility] ([facility])[address] [place] [address] 57055 Basic metabolic 2000 panelon 11-07-2023 Anion gap [Moles/Vol] 10 mmol/L Normal 10-20 [facility] Comment on above: Performed By: #### 3 0934-4 #### OMERO KNIGHT ([id number]) [facility] ([facility]) [address] [place] [address] 78717 Calcium [Mass/Vol] 8.1 mg/dL Low 8.6-10.3 [facility] Comment on above: Performed By: #### 3 0934-4 #### OMERO KNIGHT ([id number]) [facility] ([facility]) [address] [place] [address] 84022 Chloride [Moles/Vol] 100 mmol/L Normal 98-107 [facility] Comment on above: Performed By: #### 3 0934-4 #### OMERO KNIGHT ([id number]) [facility] ([facility]) [address] [place] [address] 72199 CO2 [Moles/Vol] 26 mmol/L Normal 21-32 [facility] Comment on above: Performed By: #### 3 0934-4 #### OMERO KNIGHT ([id number]) [facility] ([facility]) [address] [place] [address] 07612 Creatinine [Mass/Vol] 0.92 mg/dL Normal 0.50-1.05 [facility] Comment on above: Performed By: #### 3 0934-4 #### OMERO KNIGHT ([id number]) [facility] ([facility]) [address] [place] [address] 16080 Glomerular filtration rate/1.73 sq M.predicted 65 mL/min/1.73m*2 Normal >60 [facility] Comment on above: Result Comment: Calc ulations of estimated GFR are performed using the 2020 CKD-EPI Study Refit equation without the race variable for the IDMS-Traceable creatinine methods. https://jasn.asnjournals.org/content/early/ASN.05142 33220 Performed By: #### 3 0934-4 #### OMERO KNIGHT (12261) [facility] ([facility]) [address] [place] [address] 67751 Glucose [Mass/Vol] 116 mg/dL High 74-99 [facility] Comment on above: Performed By: #### 3 0934-4 #### OMERO KNIGHT ([id number]) [facility] ([facility]) [address] [place] [address] 12535 Potassium [Moles/Vol] 3.4 mmol/L Low 3.5-5.3 [facility] Comment on above: Performed By: #### 3 0934-4 #### OMERO KNIGHT (78138) [facility] ([facility]) [address] [place] [address] 53619 Sodium [Moles/Vol] 133 mmol/L Low 136-145 [facility] Comment on above: Performed By: #### 3 0934-4 #### OMERO KNIGHT ([id number]) [facility] ([facility]) [address] [place] [address] 59904 Urea nitrogen [Mass/Vol] 21 mg/dL Normal 6-23 [facility] Comment on above: Performed By: #### 3 0934-4 #### OMERO KNIGHT ([id number]) [facility] ([facility]) [address] [place] [address] 45771 CBC panel Auto (Bld)on 11-06 Erythrocyte distribution width (RBC) [Ratio] 15.6 % High 11.5-14.5 [facility] Comment on above: Performed By: #### 3 0934-4 #### OMERO KNIGHT ([id number]) [facility] ([facility]) [address] [place] [address] 72241 Hematocrit (Bld) [Volume fraction] 32.4 % Low 36.0-46.0 [facility] Comment on above: Performed By: #### 3 34-4 #### OMERO KNIGHT (60489) [facility] ([facility]) [address] [place] [address] Hemoglobin (Bld) [Mass/Vol] 9.9 g/dL Low 12.0-16.0 [facility] Comment on above: Performed By: #### 3 34-4 #### OMERO KNIGHT ([id number]) [facility] ([facility]) [address] [place] [address] 52602 MCH (RBC) [Entitic mass] 26.6 pg Normal 26.0-34.0 [facility] Comment on above: Performed By: #### 3 34-4 #### OMERO KNIGHT ([id number]) [facility] ([facility]) [address] [place] [address] 83028 MCHC (RBC) [Mass/Vol] 30.6 g/dL Low 32.0-36.0 [facility] Comment on above: Performed By: #### 3 34-4 #### OMERO KNIGHT ([id number]) [facility] ([facility]) [address] [place] [address] 39985 MCV (RBC) [Entitic vol] 87 fL Normal 80-100 [facility] Comment on above: Performed By: #### 3 34-4 #### OMERO KNIGHT ([id number]) [facility] ([facility]) [address] [place] [address] 25214 Nucleated RBC/100 WBC (Bld) [Ratio] 0.0 /100 WBCs Normal 0.0-0.0 [facility] Comment on above: Performed By: #### 3 0934-4 #### OMERO KNIGHT ([id number]) [facility] ([facility]) [address] [place] [address] 19728 Platelets (Bld) [#/Vol] 246 x10*3/uL Normal 150-450 [facility] Comment on above: Performed By: #### 3 34-4 #### OMERO KNIGHT ([id number]) [facility] ([facility]) [address] [place] [address] 86121 RBC (Bld) [#/Vol] 3.72 x10*6/uL Low 4.00-5.20 [facility] Comment on above: Performed By: #### 3 34-4 #### OMERO KNIGHT ([id number]) [facility] ([facility]) [address] [place] [address] 44064 WBC (Bld) [#/Vol] 7.8 x10*3/uL Normal 4.4-11.3 [facility] Comment on above: Performed By: #### 3 34-4 #### OMERO KNIGHT ([id number]) [facility] ([facility]) [address] [place] [address] 01743 Glucose Test strip manual (B ld) [Mass/Vol]on 11-07-2023 Glucose [Mass/Vol] 124 mg/dL High 7499 [facility] Comment on above: Performed By: #### 3 34-4 #### OMERO KNIGHT ([id number]) [facility] ([facility]) [address] [place] [address] 42617 Glucose [Mass/Vol] 108 mg/dL High 74-99 [facility] Comment on above: Performed By: #### 3 34-4 #### OMERO KNIGHT ([id number]) [facility] ([facility]) [address] [place] [address] 62722 Glucose [Mass/Vol] 134 mg/dL High [address] Comment on above: Performed By: #### 3 34-4 #### OMERO KNIGHT ([id number]) [facility] ([facility]) [address] [place] [address] 22441 Glucose [Mass/Vol] 104 mg/dL High 74-99 [facility] Comment on above: Result Comment: RN/M D NOTIFIED Performed By: #### 3 0934-4 #### OMERO KNIGHT ([id number]) [facility] ([facility]) [address] [place] [address] 31126 Vancomycinon 11-07-2023 Vancomycin [Mass/Vol] 8.5 ug/mL Normal 5.0-20.0 [facility] Comment on above: Order Comment: <100 pg/mL - Heart failure unlikely 100-299 pg/mL - Intermediate probability of acute heart failure exacerbation. Correlate with clinical context and patient history. >=300 pg/mL - Heart Failure likely. Correlate with clinical context and patient history. BNP testing is performed using different testing methodology at [facility] than at [facility]. Direct result comparisons should only be made within the same method. Performed By: #### 3 0934-4 #### OMERO KNIGHT ([id number]) [facility] ([facility]) [address] [place], [place] [id number] Bacteria identifiedon 2023 Bacteria identified Cx Nom (Bld) Test: Blood Culture Specimen Source: Peripheral Venipuncture Specimen Type: Blood culture Specimen Date: 11/06/2023728 Result Date: 11/10/20231200 Result Status: Final result Abnormal: No Resulting Lab: [facility] [address] [address] CULTURE No growth at 4 days - FINAL REPORT [facility] Comment on above: Performed By: #### 2 4321-2 #### OMERO KNIGHT ([id number]) [facility] ([facility]) [address] [place] [address] 63374 Bacteria identified Cx Nom (Bld) Test: Blood Culture Specimen Source: Peripheral Venipuncture Specimen Type: Blood culture Specimen Date: 11/06/2023715 Result Date: 11/10/20231200 Result Status: Final result Abnormal: No Resulting Lab: [facility] [address] [address] CULTURE No growth at 4 days - FINAL REPORT Normal [facility] Comment on above: Performed By: #### 2 4321-2 #### OMERO KNIGHT ([id number]) [facility] ([facility]) [address] [place] [address] Bacteria identified Cx Nom (U) Test: Urine Culture Specimen Source: Clean Catch/Voided Specimen Type: Urine Specimen Date: 11/06/2023536 Result Date: 11/07/2023835 Result Status: Final result Abnormal: Yes Resulting Lab: [facility] [address] [place] [address] CULTURE Multiple organisms present, probable contamination. Repeat culture if clinically indicated. (Abnormal) Abnormal [facility] Comment on above: Performed By: #### 3 0934-4 #### OMERO KNIGHT ([id number]) [facility] ([facility]) [address] [place] [address] CBC W Auto Differential pane l (Bld)on 11-06-2023 Basophils (Bld) [#/Vol] 0.04 x10*3/uL Normal 0.00-0.10 [facility] Comment on above: Performed By: #### 8 9577-1 #### OMERO KNIGHT ([id number]) [facility] ([facility]) [address] [place] [address] Basophils/100 WBC (Bld) 0.4 % Normal 0.0-2.0 [facility] Comment on above: Performed By: #### 8 9577-1 #### OMERO KNIGHT ([id number]) [facility] ([facility]) [address] [place] [address] Eosinophils (Bld) [#/Vol] 0.09 x10*3/uL Normal 0.00-0.40 [facility] Comment on above: Performed By: #### 8 9577-1 #### OMERO KNIGHT ([id number]) [facility] ([facility]) [address] [place] [address] 80381 Eosinophils/100 WBC (Bld) 0.8 % Normal 0.0-6.0 [facility] Comment on above: Performed By: #### 8 9577-1 #### OMERO KNIGHT ([id number]) [facility] ([facility]) [address] [place] [address] 69369 Erythrocyte distribution width (RBC) [Ratio] 15.3 % High 11.5-14.5 [facility] Comment on above: Performed By: #### 8 9577-1 #### OMERO KNIGHT ([id number]) [facility] ([facility]) [address] [place] [address] 93202 Hematocrit (Bld) [Volume fraction] 37.0 % Normal 36.0-46.0 [facility] Comment on above: Performed By: #### 8 9577-1 #### OMERO KNIGHT ([id number]) [facility] ([facility]) [address] [place] [address] 68597 Hemoglobin (Bld) [Mass/Vol] 11.6 g/dL Low 12.0-16.0 [facility] Comment on above: Performed By: #### 8 9577-1 #### OMERO KNIGHT ([id number]) [facility] ([facility]) [address] [place] [address] 86056 Immature granulocytes (Bld) [#/Vol] 0.06 x10*3/uL Normal 0.00-0.50 [facility] Comment on above: Performed By: #### 8 9577-1 #### OMERO KNIGHT ([id number]) [facility] ([facility]) [address] [place] [address] 40762 Immature granulocytes/100 WBC (Bld) 0.6 % Normal 0.0-0.9 [facility] Comment on above: Result Comment: Martina ture Granulocyte Count (IG) includes promyelocytes, myelocytes and metamyelocytes but does not include bands. Percent differential counts (%) should be interpreted in the context of the absolute cell counts (cells/UL). Performed By: #### 8 9577-1 #### OMERO KNIGHT ([id number]) [facility] ([facility]) [facility] [place] [address] Lymphocytes (Bld) [#/Vol] 3.12 x10*3/uL High 0.80-3.00 [facility] Comment on above: Performed By: #### 8 9577-1 #### OMERO KNIGHT (85609) [facility] ([facility]) [address] [place] [address] 70622 Lymphocytes/100 WBC (Bld) 28.8 % Normal 13.0-44.0 [facility] Comment on above: Performed By: #### 8 9577-1 #### OMERO KNIGHT ([id number]) [facility] ([facility]) [address] [place] [address] 79043 MCH (RBC) [Entitic mass] 26.4 pg Normal 26.0-34.0 [facility] Comment on above: Performed By: #### 8 9577-1 #### OMERO KNIGHT ([id number]) [facility] ([facility]) [address] [place] [address] 38747 MCHC (RBC) [Mass/Vol] 31.4 g/dL Low 32.0-36.0 [facility] Comment on above: Performed By: #### 8 9577-1 #### OMERO KNIGHT ([id number]) [facility] ([facility]) [address] [place] [address] 96571 MCV (RBC) [Entitic vol] 84 fL Normal 80-100 [facility] Comment on above: Performed By: #### 8 9577-1 #### OMERO KNIGHT ([id number]) [facility] ([facility]) [address] [place] [address] 97760 Monocytes (Bld) [#/Vol] 1.02 x10*3/uL High 0.05-0.80 [facility] Comment on above: Performed By: #### 8 9577-1 #### OMERO KNIGHT (47038) [facility] ([facility]) [address] [place] [address] 18315 Monocytes/100 WBC (Bld) 9.4 % Normal 2.0-10.0 [facility] Comment on above: Performed By: #### 8 9577-1 #### OMERO KNIGHT ([id number]) [facility] ([facility]) [address] [place] [address] 83912 Neutrophils (Bld) [#/Vol] 6.51 x10*3/uL High 1.60-5.50 [facility] Comment on above: Result Comment: Perc ent differential counts (%) should be interpreted in the context of the absolute cell counts (cells/uL). Performed By: #### 8 9577-1 #### OMERO KNIGHT ([id number]) [facility] ([facility]) [address] [place] [address] 65570 Neutrophils/100 WBC (Bld) 60.0 % Normal 40.0-80.0 [facility] Comment on above: Performed By: #### 8 9577-1 #### OMERO KNIGHT ([id number]) [facility] ([facility]) [address] [place] [address] 10194 Nucleated RBC/100 WBC (Bld) [Ratio] 0.0 /100 WBCs Normal 0.0-0.0 [facility] Comment on above: Performed By: #### 8 9577-1 #### OMERO KNIGHT ([id number]) [facility] ([facility]) [address] [place] [address] 88342 Platelets (Bld) [#/Vol] 353 x10*3/uL Normal 150-450 [facility] Comment on above: Performed By: #### 8 9577-1 #### OMERO KNIGHT ([id number]) [facility] ([facility]) [address] [place] [address] 05451 RBC (Bld) [#/Vol] 4.40 x10*6/uL Normal 4.00-5.20 [facility] Comment on above: Performed By: #### 8 9577-1 #### OMERO KNIGHT ([id number]) [facility] ([facility]) [address] [place] [address] 59656 WBC (Bld) [#/Vol] 10.8 x10*3/uL Normal 4.4-11.3 [facility] Comment on above: Performed By: #### 8 9577-1 #### JAMIL EUGENE ([id number]) [facility] ([facility]) [address] [place] [address] CT CHEST ABDOMEN PELVIS WO C [facility] 11-06-2023 CT CHEST ABDOMEN PELVIS WO CONTRAST STUDY: CT Chest, Abdomen, and Pelvis without IV Contrast; 11/06/2023, 0805 INDICATION: Abnormal thoracic spine CT. COMPARISON: CT thoracic 11/06/2023, XR chest 10/09/2023, CT abd 01/05/2020. ACCESSION NUMBER(S): [id number] ORDERING CLINICIAN: VERA HUANG TECHNIQUE: CT of [...] uterine fibroids. Signed by Mychal Chavez MD [facility] CT THORACIC SPINE [facility] THORACIC SPINE WO IV CONTRAST STUDY: CT Thoracic Spine without IV Contrast; 11/06/2023 at 5:45 AM. INDICATION: Thoracic back pain. COMPARISON: None available. ACCESSION NUMBER(S): [id number] ORDERING CLINICIAN: SKINNY STEEL TECHNIQUE: CT of [...] for infl (more content not included)... Normal [facility] Comprehensive metabolic 2000 panelon 11-06-2023 Albumin BCP dye [Mass/Vol] 3.3 g/dL Low 3.4-5.0 [facility] Comment on above: Performed By: #### 2 4321-2 #### JAMIL EUGENE ([id number]) [facility] ([facility]) [address] [place] [address] 47868 ALP [Catalytic activity/Vol] 133 U/L Normal 33-136 [facility] Comment on above: Performed By: #### 2 4321-2 #### JAMIL EUGENE ([id number]) [facility] ([facility]) [facility] [place] [address] ALT With P-5'-P [Catalytic activity/Vol] 10 U/L Normal 7-45 [facility] Comment on above: Result Comment: Madhavi ents treated with Sulfasalazine may generate falsely decreased results for ALT. Performed By: #### 2 4321-2 #### JAMIL LISAHRLI ([id number]) [facility] ([facility]) [address] [place] [address] Anion gap [Moles/Vol] 15 mmol/L Normal 10-20 [facility] Comment on above: Performed By: #### 2 4321-2 #### OMERO KNIGHT ([id number]) [facility] ([facility]) [address] [place] [address] AST With P-5'-P [Catalytic activity/Vol] 14 U/L Normal 9-39 [facility] Comment on above: Performed By: #### 2 4321-2 #### OMERO KNIGHT ([id number]) [facility] ([facility]) [address] [place] [address] 35512 Bilirubin [Mass/Vol] 0.5 mg/dL Normal 0.0-1.2 [facility] Comment on above: Performed By: #### 2 1-2 #### OMERO KNIGHT ([id number]) [facility] ([facility]) [address] [place] [address] Calcium [Mass/Vol] 9.2 mg/dL Normal 8.6-10.3 [facility] Comment on above: Performed By: #### 2 4321-2 #### OMERO KNIGHT ([id number]) [facility] ([facility]) [address] [place] [address] Chloride [Moles/Vol] 96 mmol/L Low 98-107 [facility] Comment on above: Performed By: #### 2 4321-2 #### OMERO KNIGHT ([id number]) [facility] ([facility]) [address] [place] [address] CO2 [Moles/Vol] 26 mmol/L Normal 21-32 [facility] Comment on above: Performed By: #### 2 1-2 #### OMERO KNIGHT ([id number]) [facility] ([facility]) [address] [place] [address] Creatinine [Mass/Vol] 1.12 mg/dL High 0.50-1.05 [facility] Comment on above: Performed By: #### 2 4321-2 #### OMERO KNIGHT ([id number]) [facility] ([facility]) [address] [place] [address] 66734 Glomerular filtration rate/1.73 sq M.predicted 51 mL/min/1.73m*2 Low >60 [facility] Comment on above: Result Comment: Calc ulations of estimated GFR are performed using the 2020 CKD-EPI Study Refit equation without the race variable for the IDMS-Traceable creatinine methods. https://jasn.asnjournals.org/content/early/ASN.32317 35781 Performed By: #### 2 4321-2 #### OMERO KNIGHT (85379) [facility] ([facility]) [address] [place] [address] 44933 Glucose [Mass/Vol] 153 mg/dL High 74-99 [facility] Comment on above: Performed By: #### 2 4321-2 #### OMERO KNIGHT ([id number]) [facility] ([facility]) [address] [place] [address] 56944 Potassium [Moles/Vol] 3.8 mmol/L Normal 3.5-5.3 [facility] Comment on above: Performed By: #### 2 4321-2 #### OMERO KNIGHT (57203) [facility] ([facility]) [address] [place] [address] 88952 Protein [Mass/Vol] 7.4 g/dL Normal 6.4-8.2 [facility] Comment on above: Performed By: #### 2 4321-2 #### OMERO KNIGHT ([id number]) [facility] ([facility]) [address] [place] [address] 00837 Sodium [Moles/Vol] 133 mmol/L Low 136-145 [facility] Comment on above: Performed By: #### 2 4321-2 #### OMERO KNIGHT ([id number]) [facility] ([facility]) [address] [place] [address] Urea nitrogen [Mass/Vol] 29 mg/dL High 6-23 [facility] Comment on above: Performed By: #### 2 4321-2 #### OMERO KNIGHT ([id number]) [facility] ([facility]) [address] [place] [address] ECG 12-LEADon 11-06-2023 ECG 12-LEAD Ventricular Rate 96 QRS Duration 116 Q-T Interval 354 QTC Calculation(Bazett) 447 R [place] -50 T [place] 125 QRS Count 16 Q Onset 203 [...] and clinical correlation Confirmed by Sophie Florian ([id number]) on 11/06/2023 8:58:45 PM Normal [facility] Glucose Test strip manual (B ld) [Mass/Vol]on 11-06-2023 Glucose [Mass/Vol] 128 mg/dL High 74-99 [facility] Comment on above: Performed By: #### 3 0934-4 #### OMERO KNIGHT ([id number]) [facility] ([facility]) [address] [place] [address] Glucose [Mass/Vol] 98 mg/dL Normal 74-99 [facility] Comment on above: Performed By: #### 3 0934-4 #### OMERO KNIGHT ([id number]) [facility] ([facility]) [address] [place] [address] MR CERVICAL SPINE W AND WO I V CONTRASTon 11-06-2023 MR CERVICAL SPINE W AND WO IV CONTRAST Interpreted By: Lynda Bal, STUDY: MR CERVICAL SPINE W AND WO IV CONTRAST; 11/06/2023 12:58 pm INDICATION: Signs/Symptoms:Abnormal CT thoracic spine, Cancer staging. COMPARISON: None. ACCESSION NUMBER(S): [id number] ORDERING CLINICIAN: VERA HUANG TECHNIQUE: Sagittal T1, [...] throughout the cervical spine. Varying degrees of pssr-uu-ciqvdann disc height loss. Cord: Within the limitation [...] Lynda Bal 11/06/2023 1:10 PM Dictation workstation: [id number] [facility] MR LUMBAR SPINE W AND WO IV CONTRASTon 11-06-2023 MR LUMBAR SPINE W AND WO IV CONTRAST Interpreted By: Lynda Bal, STUDY: MRI of the lumbar spine without IV contrast; 11/06/2023 12:58 pm INDICATION: Signs/Symptoms:Abnormal thoracic CT scan, cancer staging. COMPARISON: None. ACCESSION NUMBER(S): [id number] ORDERING CLINICIAN: VERA HUANG TECHNIQUE: Sagittal and [...] stenosis, narrowing of the subarticular recess and fyep-kd-purkdzrb bilateral neural foraminal stenosis. L3-L4: Disc bulge, [...] as stated. This study was interpreted at [place], [place]. MACRO: None Signed by: Lynda Bal 11/06/2023 1:29 PM Dictation workstation: [id number] [facility] MR THORACIC SPINE W AND WO I V CONTRASTon 11-06-2023 MR THORACIC SPINE W AND WO IV CONTRAST Interpreted By: Lynda Bal, STUDY: MR THORACIC SPINE W AND WO IV CONTRAST; 11/06/2023 12:58 pm INDICATION: Signs/Symptoms:Abnormal thoracic CT scan, cancer staging. COMPARISON: None. ACCESSION NUMBER(S): [id number] ORDERING CLINICIAN: VERA HUANG TECHNIQUE: Sagittal T1, T2, STIR and axial T2 and T1 weighted MR images of the thoracic spine were obtained. FINDINGS: Counting was performed from the C2 vertebral body on the fish hatchery inspector image. Alignment: There is slightly exaggerated thoracic [...] spine with mild degenerative endplate changes and otia-gg-ppobrjzy disc height loss. There is prevertebral infiltration [...] with moderate to severe spinal canal and fpqx-mx-vggvpjsx bilateral neural foraminal stenosis. T9-T10, T10-T11: Degenerative [...] STIR sequence. MACRO: None Signed by: Lynda aBl 11/06/2023 1:24 PM Dictation workstation: [id number] Normal [facility] Troponin I.cardiac panelon 0 11-06-2023 Tropinin I.cardiac panel High sensitivity method 9 ng/L Normal 0-13 [facility] Comment on above: Order Comment: Less [...] is performed using a differenttesting methodology at [facility] than at [facility]. Direct result comparisons should onlybe made within the same method. Performed By: #### 2 4321-2 #### OMERO KNIGHT ([id number]) [facility] ([facility]) [address] [place] [address] Urinalysis complete W Reflex Culture panel (U)on 11-06-2023 Appearance (U) Turbid Normal Clear [facility] Comment on above: Performed By: #### 8 9577-1 #### OMERO KNIGHT ([id number]) [facility] ([facility]) [address] [place] [address] 94645 Bilirubin (U) [Mass/Vol] Negative Normal NEGATIVE [facility] Comment on above: Performed By: #### 8 9577-1 #### OMERO KNIGHT ([id number]) [facility] ([facility]) [address] [place] [address] 37904 Color (U) Yellow Normal Light-Yellow , Yellow, Dark-Yellow [facility] Comment on above: Performed By: #### 8 9577-1 #### OMERO KNIGHT ([id number]) [facility] ([facility]) [address] [place] [address] 31687 Glucose Auto test strip (U) [Mass/Vol] Normal Normal Normal [facility] Comment on above: Performed By: #### 8 9577-1 #### OMERO KNIGHT ([id number]) [facility] ([facility]) [address] [place] [address] 11337 Ketones (U) [Mass/Vol] Negative Normal NEGATIVE [facility] Comment on above: Performed By: #### 8 9577-1 #### OMERO KNIGHT ([id number]) [facility] ([facility]) [address] [place] [address] 87882 Leukocyte esterase Auto test strip Ql (U) 75 Ray/???L Abnormal NEGATIVE [facility] Comment on above: Performed By: #### 8 9577-1 #### OMERO KNIGHT (27143) [facility] ([facility]) [address] [place] [address] 72375 Nitrite Auto test strip Ql (U) Negative Normal NEGATIVE [facility] Comment on above: Performed By: #### 8 9577-1 #### OMERO KNIGHT ([id number]) [facility] ([facility]) [address] [place] [address] 67527 pH (U) 5.5 [pH] Normal 5.0, 5.5, 6.0, 6.5, 7.0, 7.5, 8.0 [facility] Comment on above: Performed By: #### 8 9577-1 #### OMERO KNIGHT ([id number]) [facility] ([facility]) [address] [place] [address] Protein (U) [Mass/Vol] 20 (TRACE) Normal NEGAT JORGE, 10 (TRACE), 20 (TRACE) [facility] Comment on above: Performed By: #### 8 9577-1 #### OMERO KNIGHT ([id number]) [facility] ([facility]) [address] [place] [address] RBC (U) [#/Vol] 0.1 (1+) Abnormal NEGATIVE [facility] Comment on above: Performed By: #### 8 9577-1 #### OMERO KNIGHT ([id number]) [facility] ([facility]) [address] [place] [address] Specific gravity (U) [Rel density] 1.029 Normal 1.005-1.035 [facility] Comment on above: Performed By: #### 8 9577-1 #### OMERO KNIGHT ([id number]) [facility] ([facility]) [address] [place] [address] Urobilinogen (U) [Mass/Vol] 3 (1+) Abnormal Normal [facility] Comment on above: Result Comment: Some pigments and medications may cause a false positive urobilinogen. Performed By: #### 8 9577-1 #### OMERO KNIGHT ([id number]) [facility] ([facility]) [address] [place] [address] Urinalysis microscopic panel Auto Ql (U)on 11-06-2023 Bacteria Auto (Urine sed) [#/Area] 1+ /HPF Abnormal NONE SEEN [facility] Comment on above: Performed By: #### 2 4321-2 #### OMERO KNIGHT ([id number]) [facility] ([facility]) [address] [place] [address] Crystals.amorphous Computer assisted (U) [#/Area] 1+ /HPF Normal NONE, 1+, 2+ [facility] Comment on above: Performed By: #### 2 4321-2 #### OMERO KNIGHT ([id number]) [facility] ([facility]) [facility] [place] [address] Epithelial cells.squamous Auto (Urine sed) [#/Area] 1-9 (SPARSE) Normal Reference range not established. [facility] Comment on above: Performed By: #### 2 4321-2 #### OMERO KNIGHT ([id number]) [facility] ([facility]) [address] [place] [id number] Mucus Auto (Urine sed) [#/Area] FEW Normal Reference range not established. [facility] Comment on above: Performed By: #### 2 4321-2 #### OMERO KNIGHT ([id number]) [facility] ([facility]) [address] [place], [place] [address] RBC Auto (Urine sed) [#/Area] 3-5 Normal NONE, 1-2, 3-5 [facility] Comment on above: Performed By: #### 2 4321-2 #### OMERO KNIGHT ([id number]) [facility] ([facility]) [address] [place], [place] [id number] WBC Auto (Urine sed) [#/Area] 1-5 Normal 1-5, NONE [facility] Comment on above: Performed By: #### 2 4321-2 #### OMERO KNIGHT ([id number]) [facility] ([facility]) [address] [place] [address] 67805 Basic metabolic 2000 panelon 10-15-2023 Anion gap [Moles/Vol] 12 mmol/L 10 - 2 0 mmol/L [facility] Calcium [Mass/Vol] 8.6 mg/dL 8.6 - 10. 3 mg/dL [facility] Chloride [Moles/Vol] 92 mmol/L Low 98 - 10 7 mmol/L [facility] CO2 [Moles/Vol] 30 mmol/L 21 - 32 mmol/L [facility] Creatinine [Mass/Vol] 0.67 mg/dL 0.50 - 1.05 mg/dL [facility] eGFR - PINF [facility] Comment on above: Calculations of hannah mated GFR are performed using the 2021 CKD-EPI Study Refit equation without the race variable for the IDMS-Traceable creatinine methods. https://jasn.asnjournals.org/content//ASN.77912 24731 Glucose [Mass/Vol] 170 mg/dL High 74 - 99 mg/dL [facility] Interpretation and review of laboratory results Abnormal [facility] Potassium [Moles/Vol] 3.7 mmol/L 3.5 - 5.3 mmol/L [facility] Sodium [Moles/Vol] 130 mmol/L Low 136 - 145 mmol/L [facility] Comment on above: Reviewed previous re sults Urea nitrogen [Mass/Vol] 19 mg/dL 6 - 23 mg/dL [facility] Anion gap [Moles/Vol] 12 mmol/L Normal 10-20 [facility] Comment on above: Performed By: #### 8 9577-1 #### OMERO KNIGHT ([id number]) [facility] ([facility]) [facility] [place] [address] Calcium [Mass/Vol] 8.6 mg/dL Normal 8.6-10.3 [facility] Comment on above: Performed By: #### 8 9577-1 #### OMERO KNIGHT ([id number]) [facility] ([facility]) [address] [place] [address] Chloride [Moles/Vol] 92 mmol/L Low 98-107 [facility] Comment on above: Performed By: #### 8 9577-1 #### OMERO KNIGHT ([id number]) [facility] ([facility]) [address] [place] [address] CO2 [Moles/Vol] 30 mmol/L Normal 21-32 [facility] Comment on above: Performed By: #### 8 9577-1 #### OMERO KNIGHT ([id number]) [facility] ([facility]) [address] [place] [address] Creatinine [Mass/Vol] 0.67 mg/dL Normal 0.50-1.05 [facility] Comment on above: Performed By: #### 8 9577-1 #### OMERO KNIGHT ([id number]) [facility] ([facility]) [facility] [place] [address] GFR/1.73 sq M.predicted MDRD (S/P/Bld) [Vol rate/Area] mL/min/{1.73_m2} Normal >60 [facility] Comment on above: Result Comment: Calc ulations of estimated GFR are performed using the 2020 CKD-EPI Study Refit equation without the race variable for the IDMS-Traceable creatinine methods. https://jasn.asnjournals.org/content/early/ASN.42009 42055 Performed By: #### 8 9577-1 #### OMERO KNIGHT ([id number]) [facility] ([facility]) [address] [place] [address] 00201 Glucose [Mass/Vol] 170 mg/dL High 74-99 [facility] Comment on above: Performed By: #### 8 9577-1 #### OMERO KNIGHT ([id number]) [facility] ([facility]) [address] [place] [address] 15223 Potassium [Moles/Vol] 3.7 mmol/L Normal 3.5-5.3 [facility] Comment on above: Performed By: #### 8 9577-1 #### OMERO KNIGHT ([id number]) [facility] ([facility]) [address] [place] [address] 21023 Sodium [Moles/Vol] 130 mmol/L Low 136-145 [facility] Comment on above: Result Comment: Revi ewed previous results Performed By: #### 8 9577-1 #### OMERO KNIGHT ([id number]) [facility] ([facility]) [address] [place] [address] 17289 Urea nitrogen [Mass/Vol] 19 mg/dL Normal 6-23 [facility] Comment on above: Performed By: #### 8 9577-1 #### OMERO KNIGHT ([id number]) [facility] ([facility]) [address] [place] [address] 89769 CBC panel Auto (Bld)on 10-14 Erythrocyte distribution width (RBC) [Ratio] 14.3 % 11.5 - 14.5 % [facility] Hematocrit (Bld) [Volume fraction] 40.4 % 36.0 - 46.0 % [facility] Hemoglobin (Bld) [Mass/Vol] 12.9 g/dL 12.0 - 16.0 g/dL [facility] Interpretation and review of laboratory results Abnormal [facility] MCH (RBC) [Entitic mass] 26.7 pg 26.0 - 34.0 pg [facility] MCHC (RBC) [Mass/Vol] 31.9 g/dL Low 32.0 - 36.0 g/dL [facility] MCV (RBC) [Entitic vol] 84 fL 80 - 100 fL [facility] Nucleated RBC/100 WBC (Bld) [Ratio] 0.0 % [facility] Platelets (Bld) [#/Vol] 275 10*3/uL [facility] RBC (Bld) [#/Vol] 4.83 10*6/uL [facility] WBC (Bld) [#/Vol] 15.1 10*3/uL High [facility] Erythrocyte distribution width (RBC) [Ratio] 14.3 % Normal 11.5-14.5 [facility] Comment on above: Performed By: #### 8 9577-1 #### OMERO KNIGHT ([id number]) [facility] ([facility]) [address] [place] [address] 29776 Hematocrit (Bld) [Volume fraction] 40.4 % Normal 36.0-46.0 [facility] Comment on above: Performed By: #### 8 9577-1 #### OMERO KNIGHT ([id number]) [facility] ([facility]) [address] [place] [address] 74877 Hemoglobin (Bld) [Mass/Vol] 12.9 g/dL Normal 12.0-16.0 [facility] Comment on above: Performed By: #### 8 9577-1 #### OMERO KNIGHT ([id number]) [facility] ([facility]) [address] [place] [address] MCH (RBC) [Entitic mass] 26.7 pg Normal 26.0-34.0 [facility] Comment on above: Performed By: #### 8 9577-1 #### OMERO KNIGHT ([id number]) [facility] ([facility]) [address] [place] [address] 23270 MCHC (RBC) [Mass/Vol] 31.9 g/dL Low 32.0-36.0 [facility] Comment on above: Performed By: #### 8 9577-1 #### OMERO KNIGHT ([id number]) [facility] ([facility]) [address] [place], [place] [address] MCV (RBC) [Entitic vol] 84 fL Normal 80-100 [facility] Comment on above: Performed By: #### 8 9577-1 #### OMERO KNIGHT ([id number]) [facility] ([facility]) [address] [place] [address] 98328 Nucleated RBC/100 WBC (Bld) [Ratio] 0.0 /100 WBCs Normal 0.0-0.0 [facility] Comment on above: Performed By: #### 8 9577-1 #### OMERO KNIGHT ([id number]) [facility] ([facility]) [address] [place] [address] 23045 Platelets (Bld) [#/Vol] 275 x10*3/uL Normal 150-450 [facility] Comment on above: Performed By: #### 8 9577-1 #### OMERO KNIGHT ([id number]) [facility] ([facility]) [address] [place] [address] 81840 RBC (Bld) [#/Vol] 4.83 x10*6/uL Normal 4.00-5.20 [facility] Comment on above: Performed By: #### 8 9577-1 #### OMERO KNIGHT ([id number]) [facility] ([facility]) [address] [place] [address] 57418 WBC (Bld) [#/Vol] 15.1 x10*3/uL High 4.4-11.3 [facility] Comment on above: Performed By: #### 8 9577-1 #### OMERO KNIGHT ([id number]) [facility] ([facility]) [address] [place] [address] 64297 Glucose Test strip manual (B ld) [Mass/Vol]on 10-15-2023 Glucose [Mass/Vol] 141 mg/dL High 74 - 99 mg/dL [facility] Interpretation and review of laboratory results Abnormal [facility] Glucose [Mass/Vol] 141 mg/dL High 74-99 [facility] Comment on above: Performed By: #### 8 9577-1 #### OMERO KNIGHT ([id number]) [facility] ([facility]) [address] [place] [address] 01517 Glucose [Mass/Vol] 225 mg/dL High 74 - 99 mg/dL [facility] Interpretation and review of laboratory results Abnormal [facility] Glucose [Mass/Vol] 225 mg/dL High 74-99 [facility] Comment on above: Performed By: #### 8 9577-1 #### OMERO KNIGHT ([id number]) [facility] ([facility]) [address] [place] [address] 31475 Glucose [Mass/Vol] 156 mg/dL High 74 - 99 mg/dL [facility] Interpretation and review of laboratory results Abnormal [facility] Glucose [Mass/Vol] 156 mg/dL High 74-99 [facility] Comment on above: Performed By: #### 8 9577-1 #### OMERO KNIGHT ([id number]) [facility] ([facility]) [address] [place] [address] 32936 Basic metabolic 2000 panelon 10-14-2023 Anion gap [Moles/Vol] 12 mmol/L 10 - 2 0 mmol/L [facility] Calcium [Mass/Vol] 8.7 mg/dL 8.6 - 10. 3 mg/dL [facility] Chloride [Moles/Vol] 93 mmol/L Low 98 - 10 7 mmol/L [facility] CO2 [Moles/Vol] 27 mmol/L 21 - 32 mmol/L [facility] Creatinine [Mass/Vol] 0.66 mg/dL 0.50 - 1.05 mg/dL [facility] eGFR - PINF [facility] Comment on above: Calculations of hannah mated GFR are performed using the 2020 CKD-EPI Study Refit equation without the race variable for the IDMS-Traceable creatinine methods. https://jasn.asnjournals.org/content/early/ASN.40016 52681 Glucose [Mass/Vol] 177 mg/dL High 74 - 99 mg/dL [facility] Interpretation and review of laboratory results Abnormal [facility] Potassium [Moles/Vol] 3.7 mmol/L 3.5 - 5.3 mmol/L [facility] Sodium [Moles/Vol] 128 mmol/L Low 136 - 145 mmol/L [facility] Comment on above: Reviewed previous re sults Urea nitrogen [Mass/Vol] 25 mg/dL High 6 - 23 mg/dL [facility] Anion gap [Moles/Vol] 12 mmol/L Normal 10-20 [facility] Comment on above: Performed By: #### 2 4321-2 ####OMERO KNIGHT ([id number])[facility] ([facility] [place] [address] Calcium [Mass/Vol] 8.7 mg/dL Normal 8.6-10.3 [facility] Comment on above: Performed By: #### 2 4321-2 ####OMERO KNIGHT ([id number])[facility] ([facility])[address] [place] [address] Chloride [Moles/Vol] 93 mmol/L Low 98-107 [facility] Comment on above: Performed By: #### 2 4321-2 ####OMERO KNIGHT ([id number])[facility] ([facility])[address] [place] [address] CO2 [Moles/Vol] 27 mmol/L Normal 21-32 [facility] Comment on above: Performed By: #### 2 4321-2 ####OMERO KNIGHT ([id number])[facility] ([facility])[address] [place] [address] 43906 Creatinine [Mass/Vol] 0.66 mg/dL Normal 0.50-1.05 [facility] Comment on above: Performed By: #### 2 4321-2 ####OMERO KNIGHT ([id number])[facility] ([facility])[address] [place] [address] 74301 GFR/1.73 sq M.predicted MDRD (S/P/Bld) [Vol rate/Area] mL/min/{1.73_m2} Normal >60 [facility] Comment on above: Result Comment: Calc ulations of estimated GFR are performed using the 2020 CKD-EPI Study Refit equation without the race variable for the IDMS-Traceable creatinine methods. https://jasn.asnjournals.org/content/early//ASN.79413 57223 Performed By: #### 2 4321-2 ####OMERO KNIGHT ([id number])[facility] ([facility])[address] [place] [address] 92411 Glucose [Mass/Vol] 177 mg/dL High 74-99 [facility] Comment on above: Performed By: #### 2 4321-2 ####OMERO KNIGHT ([id number])[facility] ([facility])[address] [place] [address] 86881 Potassium [Moles/Vol] 3.7 mmol/L Normal 3.5-5.3 [facility] Comment on above: Performed By: #### 2 4321-2 ####OMERO KNIGHT ([id number])[facility] ([facility])[address] [place] [address] 45081 Sodium [Moles/Vol] 128 mmol/L Low 136-145 [facility] Comment on above: Result Comment: Revi ewed previous results Performed By: #### 2 4321-2 ####OMERO KNIGHT ([id number])[facility] ([facility])[address] [place] [address] Urea nitrogen [Mass/Vol] 25 mg/dL High 6-23 [facility] Comment on above: Performed By: #### 2 4321-2 ####OMERO KNIGHT ([id number])[facility] ([facility])[address] [place] [address] CBC panel Auto (Bld)on 10-13 Erythrocyte distribution width (RBC) [Ratio] 14.4 % 11.5 - 14.5 % [facility] Hematocrit (Bld) [Volume fraction] 38.0 % 36.0 - 46.0 % [facility] Hemoglobin (Bld) [Mass/Vol] 12.3 g/dL 12.0 - 16.0 g/dL [facility] Interpretation and review of laboratory results Abnormal [facility] MCH (RBC) [Entitic mass] 26.7 pg 26.0 - 34.0 pg [facility] MCHC (RBC) [Mass/Vol] 32.4 g/dL 32.0 - 36.0 g/dL [facility] MCV (RBC) [Entitic vol] 82 fL 80 - 100 fL [facility] Nucleated RBC/100 WBC (Bld) [Ratio] 0.0 % [facility] Platelets (Bld) [#/Vol] 299 10*3/uL [facility] RBC (Bld) [#/Vol] 4.61 10*6/uL [facility] WBC (Bld) [#/Vol] 14.2 10*3/uL High [facility] Erythrocyte distribution width (RBC) [Ratio] 14.4 % Normal 11.5-14.5 [facility] Comment on above: Performed By: #### 5 8410-2 ####OMERO KNIGHT ([id number])[facility] ([facility] [place] [address] Hematocrit (Bld) [Volume fraction] 38.0 % Normal 36.0-46.0 [facility] Comment on above: Performed By: #### 5 8410-2 ####OMERO KNIGHT ([id number])[facility] ([facility])[address] [place] [address] 06414 Hemoglobin (Bld) [Mass/Vol] 12.3 g/dL Normal 12.0-16.0 [facility] Comment on above: Performed By: #### 5 8410-2 ####OMERO KNIGHT ([id number])[facility] ([facility])[address] [place] [address] 41155 MCH (RBC) [Entitic mass] 26.7 pg Normal 26.0-34.0 [facility] Comment on above: Performed By: #### 5 8410-2 ####OMERO KNIGHT ([id number])[facility] ([facility])[address] [place] [address] MCHC (RBC) [Mass/Vol] 32.4 g/dL Normal 32.0-36.0 [facility] Comment on above: Performed By: #### 5 8410-2 ####OMERO KNIGHT ([id number])[facility] ([facility])[address] [place] [address] 76499 MCV (RBC) [Entitic vol] 82 fL Normal 80-100 [facility] Comment on above: Performed By: #### 5 8410-2 ####OMERO KNIGHT ([id number])[facility] ([facility])[address] [place] [address] 92289 Nucleated RBC/100 WBC (Bld) [Ratio] 0.0 /100 WBCs Normal 0.0-0.0 [facility] Comment on above: Performed By: #### 5 8410-2 ####OMERO KNIGHT ([id number])[facility] ([facility])[address] [place] [address] 78662 Platelets (Bld) [#/Vol] 299 x10*3/uL Normal 150-450 [facility] Comment on above: Performed By: #### 5 8410-2 ####OMERO KNIGHT ([id number])[facility] ([facility])[address] [place] [address] 57346 RBC (Bld) [#/Vol] 4.61 x10*6/uL Normal 4.00-5.20 [facility] Comment on above: Performed By: #### 5 8410-2 ####OMERO KNIGHT ([id number])[facility] ([facility])[address] [place] [address] 56126 WBC (Bld) [#/Vol] 14.2 x10*3/uL High 4.4-11.3 [facility] Comment on above: Performed By: #### 5 8410-2 ####OMERO KNIGHT ([id number])[facility] ([facility])[address] [place], [place] [address] Glucose Test strip manual (B ld) [Mass/Vol]on 10-14-2023 Glucose [Mass/Vol] 159 mg/dL High 74 - 99 mg/dL [facility] Interpretation and review of laboratory results Abnormal [facility] Glucose [Mass/Vol] 159 mg/dL High 74-99 [facility] Comment on above: Performed By: #### 8 9577-1 #### OMERO KNIGHT (27382) [facility] ([facility]) [address] [place] [address] 37928 Glucose [Mass/Vol] 201 mg/dL High 74 - 99 mg/dL [facility] Interpretation and review of laboratory results Abnormal [facility] Glucose [Mass/Vol] 201 mg/dL High 74-99 [facility] Comment on above: Performed By: #### 8 9577-1 #### OMERO KNIGHT ([id number]) [facility] ([facility]) [address] [place] [address] 57168 Glucose [Mass/Vol] 154 mg/dL High 74 - 99 mg/dL [facility] Interpretation and review of laboratory results Abnormal [facility] Glucose [Mass/Vol] 154 mg/dL High 74-99 [facility] Comment on above: Performed By: #### 8 9577-1 #### OMERO KNIGHT (15994) [facility] ([facility]) [address] [place] [address] Glucose [Mass/Vol] 179 mg/dL High 74 - 99 mg/dL [facility] Interpretation and review of laboratory results Abnormal [facility] Glucose [Mass/Vol] 179 mg/dL High 74-99 [facility] Comment on above: Performed By: #### 2 341-6 ####OMERO KNIGHT ([id number])[facility] ([facility])[address] [place] [address] Basic metabolic 2000 panelon 10-13-2023 Anion gap [Moles/Vol] 13 mmol/L 10 - 2 0 mmol/L [facility] Calcium [Mass/Vol] 8.7 mg/dL 8.6 - 10. 3 mg/dL [facility] Chloride [Moles/Vol] 94 mmol/L Low 98 - 10 7 mmol/L [facility] CO2 [Moles/Vol] 26 mmol/L 21 - 32 mmol/L [facility] Creatinine [Mass/Vol] 0.75 mg/dL 0.50 - 1.05 mg/dL [facility] GFR/1.73 sq M.predicted among non-blacks MDRD (S/P/Bld) [Vol rate/Area] 83 mL/min/{1.73_m2} - PINF [facility] Comment on above: Calculations of hannah mated GFR are performed using the 2020 CKD-EPI Study Refit equation without the race variable for the IDMS-Traceable creatinine methods. https://jasn.asnjournals.org/content//ASN.62815 31927 Glucose [Mass/Vol] 186 mg/dL High 74 - 99 mg/dL [facility] Interpretation and review of laboratory results Abnormal [facility] Potassium [Moles/Vol] 4.0 mmol/L 3.5 - 5.3 mmol/L [facility] Sodium [Moles/Vol] 129 mmol/L Low 136 - 145 mmol/L [facility] Urea nitrogen [Mass/Vol] 32 mg/dL High 6 - 23 mg/dL [facility] Anion gap [Moles/Vol] 13 mmol/L Normal 10-20 [facility] Comment on above: Performed By: #### 2 4321-2 ####OMERO KNIGHT ([id number])[facility] ([facility] [place] [address] Calcium [Mass/Vol] 8.7 mg/dL Normal 8.6-10.3 [facility] Comment on above: Performed By: #### 2 4321-2 ####OMERO KNIGHT ([id number])[facility] ([facility])[address] [place] [address] 11477 Chloride [Moles/Vol] 94 mmol/L Low 98-107 [facility] Comment on above: Performed By: #### 2 4321-2 ####OMERO KNIGHT ([id number])[facility] ([facility])[address] [place] [address] 22348 CO2 [Moles/Vol] 26 mmol/L Normal 21-32 [facility] Comment on above: Performed By: #### 2 4321-2 ####OMERO KNIGHT (55225)[facility] ([facility])[address] [place] [address] 93450 Creatinine [Mass/Vol] 0.75 mg/dL Normal 0.50-1.05 [facility] Comment on above: Performed By: #### 2 4321-2 ####OMERO KNIGHT ([id number])[facility] ([facility])[address] [place] [address] 66474 Glomerular filtration rate/1.73 sq M.predicted 83 mL/min/1.73m*2 Normal >60 [facility] Comment on above: Result Comment: Calc ulations of estimated GFR are performed using the 2020 CKD-EPI Study Refit equation without the race variable for the IDMS-Traceable creatinine methods. https://jasn.asnjournals.org/content//ASN.07565 92463 Performed By: #### 2 4321-2 ####OMERO KNIGHT ([id number])[facility] ([facility])[address] [place] [address] 24230 Glucose [Mass/Vol] 186 mg/dL High 74-99 [facility] Comment on above: Performed By: #### 2 4321-2 ####OMERO KNIGHT ([id number])[facility] ([facility])[address] [place] [address] 88809 Potassium [Moles/Vol] 4.0 mmol/L Normal 3.5-5.3 [facility] Comment on above: Performed By: #### 2 4321-2 ####OMERO KNIGHT ([id number])[facility] ([facility])[address] [place] [address] 59440 Sodium [Moles/Vol] 129 mmol/L Low 136-145 [facility] Comment on above: Performed By: #### 2 4321-2 ####OMERO KNIGHT ([id number])[facility] ([facility])[address] [place] [address] 43593 Urea nitrogen [Mass/Vol] 32 mg/dL High 6-23 [facility] Comment on above: Performed By: #### 2 4321-2 ####OMERO KNIGHT ([id number])[facility] ([facility])[address] [place] [address] 66430 CBC panel Auto (Bld)on 10-12 Erythrocyte distribution width (RBC) [Ratio] 14.4 % 11.5 - 14.5 % [facility] Hematocrit (Bld) [Volume fraction] 38.0 % 36.0 - 46.0 % [facility] Hemoglobin (Bld) [Mass/Vol] 12.1 g/dL 12.0 - 16.0 g/dL [facility] Interpretation and review of laboratory results Abnormal [facility] MCH (RBC) [Entitic mass] 26.5 pg 26.0 - 34.0 pg [facility] MCHC (RBC) [Mass/Vol] 31.8 g/dL Low 32.0 - 36.0 g/dL [facility] MCV (RBC) [Entitic vol] 83 fL 80 - 100 fL [facility] Nucleated RBC/100 WBC (Bld) [Ratio] 0.0 % [facility] Platelets (Bld) [#/Vol] 269 10*3/uL [facility] RBC (Bld) [#/Vol] 4.57 10*6/uL [facility] WBC (Bld) [#/Vol] 18.1 10*3/uL High [facility] Erythrocyte distribution width (RBC) [Ratio] 14.4 % Normal 11.5-14.5 [facility] Comment on above: Performed By: #### 5 8410-2 ####OMERO KNIGHT ([id number])[facility] ([facility])[address] [place] [id number] Hematocrit (Bld) [Volume fraction] 38.0 % Normal 36.0-46.0 [facility] Comment on above: Performed By: #### 5 8410-2 ####OMERO KNIGHT ([id number])[facility] ([facility])[address] [place] [address] 47899 Hemoglobin (Bld) [Mass/Vol] 12.1 g/dL Normal 12.0-16.0 [facility] Comment on above: Performed By: #### 5 8410-2 ####OMERO KNIGHT ([id number])[facility] ([facility])[address] [place] [address] 42334 MCH (RBC) [Entitic mass] 26.5 pg Normal 26.0-34.0 [facility] Comment on above: Performed By: #### 5 8410-2 ####OMERO KNIGHT ([id number])[facility] ([facility])[address] [place] [address] [phone] MCHC (RBC) [Mass/Vol] 31.8 g/dL Low 32.0-36.0 [facility] Comment on above: Performed By: #### 5 8410-2 ####OMERO KNIGHT ([id number])[facility] ([facility])[address] [place] [address] 09408 MCV (RBC) [Entitic vol] 83 fL Normal 80-100 [facility] Comment on above: Performed By: #### 5 8410-2 ####OMERO KNIGHT ([id number])[facility] ([facility])[address] [place] [address] 45465 Nucleated RBC/100 WBC (Bld) [Ratio] 0.0 /100 WBCs Normal 0.0-0.0 [facility] Comment on above: Performed By: #### 5 8410-2 ####OMERO KNIGHT ([id number])[facility] ([facility])[address] [place] [address] 63957 Platelets (Bld) [#/Vol] 269 x10*3/uL Normal 150-450 [facility] Comment on above: Performed By: #### 5 8410-2 ####OMERO KNIGHT ([id number])[facility] ([facility])[address] [place] [address] 08845 RBC (Bld) [#/Vol] 4.57 x10*6/uL Normal 4.00-5.20 [facility] Comment on above: Performed By: #### 5 8410-2 ####OMERO KNIGHT ([id number])[facility] ([facility])[address] [place] [address] 62253 WBC (Bld) [#/Vol] 18.1 x10*3/uL High 4.4-11.3 [facility] Comment on above: Performed By: #### 5 8410-2 ####OMERO KNIGHT ([id number])[facility] ([facility])[address] [place] [address] 70269 Glucose Test strip manual (B ld) [Mass/Vol]on 10-13-2023 Glucose [Mass/Vol] 168 mg/dL High 74 - 99 mg/dL [facility] Interpretation and review of laboratory results Abnormal [facility] Glucose [Mass/Vol] 168 mg/dL High 74-99 [facility] Comment on above: Performed By: #### 2 341-6 ####OMERO KNIGHT ([id number])[facility] ([facility])[address] [place] [address] 15549 Glucose [Mass/Vol] 192 mg/dL High 74 - 99 mg/dL [facility] Comment on above: UZMA/ NOTIFIED Interpretation and review of laboratory results Abnormal [facility] Glucose [Mass/Vol] 192 mg/dL High 74-99 [facility] Comment on above: Result Comment: UZMA/Shaheen Licea NOTIFIED Performed By: #### 2 341-6 ####OMERO KNIGHT ([id number])[facility] ([facility])[address] [place] [address] 73669 Glucose [Mass/Vol] 157 mg/dL High 74 - 99 mg/dL [facility] Interpretation and review of laboratory results Abnormal [facility] Glucose [Mass/Vol] 157 mg/dL High 74-99 [facility] Comment on above: Performed By: #### 2 341-6 ####OMERO KNIGHT ([id number])[facility] ([facility])[address] [place] [address] 84211 Glucose [Mass/Vol] 167 mg/dL High 74 - 99 mg/dL [facility] Comment on above: UZMA/ NOTIFIED Interpretation and review of laboratory results Abnormal [facility] Glucose [Mass/Vol] 167 mg/dL High 74-99 [facility] Comment on above: Result Comment: FRIEDA Licea NOTIFIED Performed By: #### 2 341-6 ####OMERO KNIGHT ([id number])[facility] ([facility])[address] [place] [address] 51284 Bacteria identified Cx Nom ( U)Ordered By: Heather Messer on 10-12-2023 Interpretation and review of laboratory results Abnormal [facility] Basic metabolic 2000 panelon 10-12-2023 Anion gap [Moles/Vol] 12 mmol/L 10 - 2 0 mmol/L [facility] Calcium [Mass/Vol] 9.1 mg/dL 8.6 - 10. 3 mg/dL [facility] Chloride [Moles/Vol] 93 mmol/L Low 98 - 10 7 mmol/L [facility] CO2 [Moles/Vol] 28 mmol/L 21 - 32 mmol/L [facility] Creatinine [Mass/Vol] 0.87 mg/dL 0.50 - 1.05 mg/dL [facility] GFR/1.73 sq M.predicted among non-blacks MDRD (S/P/Bld) [Vol rate/Area] 70 mL/min/{1.73_m2} - PINF [facility] Comment on above: Calculations of hannah mated GFR are performed using the 2020 CKD-EPI Study Refit equation without the race variable for the IDMS-Traceable creatinine methods. https://jasn.asnjournals.org/content//ASN.71698 64562 Glucose [Mass/Vol] 191 mg/dL High 74 - 99 mg/dL [facility] Interpretation and review of laboratory results Abnormal [facility] Potassium [Moles/Vol] 3.3 mmol/L Low 3.5 - 5.3 mmol/L [facility] Sodium [Moles/Vol] 130 mmol/L Low 136 - 145 mmol/L [facility] Urea nitrogen [Mass/Vol] 38 mg/dL High 6 - 23 mg/dL [facility] Anion gap [Moles/Vol] 12 mmol/L Normal 10-20 [facility] Comment on above: Performed By: #### 5 7021-8 #### OMERO KNIGHT ([id number]) [facility] ([facility]) [address] [place] [address] 05233 Calcium [Mass/Vol] 9.1 mg/dL Normal 8.6-10.3 [facility] Comment on above: Performed By: #### 5 7021-8 #### OMERO KNIGHT ([id number]) [facility] ([facility]) [address] [place] [address] 94209 Chloride [Moles/Vol] 93 mmol/L Low 98-107 [facility] Comment on above: Performed By: #### 5 7021-8 #### OMERO KNIGHT ([id number]) [facility] ([facility]) [address] [place] [address] CO2 [Moles/Vol] 28 mmol/L Normal 21-32 [facility] Comment on above: Performed By: #### 5 7021-8 #### OMERO KNIGHT ([id number]) [facility] ([facility]) [address] [place] [address] 73173 Creatinine [Mass/Vol] 0.87 mg/dL Normal 0.50-1.05 [facility] Comment on above: Performed By: #### 5 7021-8 #### OMERO KNIGHT ([id number]) [facility] ([facility]) [address] [place] [address] 22555 Glomerular filtration rate/1.73 sq M.predicted 70 mL/min/1.73m*2 Normal >60 [facility] Comment on above: Result Comment: Calc ulations of estimated GFR are performed using the 2020 CKD-EPI Study Refit equation without the race variable for the IDMS-Traceable creatinine methods. https://jasn.asnjournals.org/content/early//ASN.18863 58404 Performed By: #### 5 7021-8 #### OMERO KNIGHT ([id number]) [facility] ([facility]) [address] [place] [address] 41146 Glucose [Mass/Vol] 191 mg/dL High 74-99 [facility] Comment on above: Performed By: #### 5 7021-8 #### OMERO KNIGHT ([id number]) [facility] ([facility]) [address] [place] [address] 71426 Potassium [Moles/Vol] 3.3 mmol/L Low 3.5-5.3 [facility] Comment on above: Performed By: #### 5 7021-8 #### OMERO KNIGHT ([id number]) [facility] ([facility]) [address] [place] [address] 91486 Sodium [Moles/Vol] 130 mmol/L Low 136-145 [facility] Comment on above: Performed By: #### 5 7021-8 #### OMERO KNIGHT ([id number]) [facility] ([facility]) [address] [place] [address] Urea nitrogen [Mass/Vol] 38 mg/dL High 6-23 [facility] Comment on above: Performed By: #### 5 7021-8 #### OMERO KNIGHT ([id number]) [facility] ([facility]) [address] [place] [address] CBC panel Auto (Bld)on 10-11 Erythrocyte distribution width (RBC) [Ratio] 14.2 % 11.5 - 14.5 % [facility] Hematocrit (Bld) [Volume fraction] 40.3 % 36.0 - 46.0 % [facility] Hemoglobin (Bld) [Mass/Vol] 13.0 g/dL 12.0 - 16.0 g/dL [facility] Interpretation and review of laboratory results Abnormal [facility] MCH (RBC) [Entitic mass] 26.7 pg 26.0 - 34.0 pg [facility] MCHC (RBC) [Mass/Vol] 32.3 g/dL 32.0 - 36.0 g/dL [facility] MCV (RBC) [Entitic vol] 83 fL 80 - 100 fL [facility] Nucleated RBC/100 WBC (Bld) [Ratio] 0.0 % [facility] Platelets (Bld) [#/Vol] 300 10*3/uL [facility] RBC (Bld) [#/Vol] 4.86 10*6/uL [facility] WBC (Bld) [#/Vol] 23.0 10*3/uL High [facility] Erythrocyte distribution width (RBC) [Ratio] 14.2 % Normal 11.5-14.5 [facility] Comment on above: Performed By: #### 5 7021-8 #### OMERO KNIGHT ([id number]) [facility] ([facility]) [address] [place] [address] Hematocrit (Bld) [Volume fraction] 40.3 % Normal 36.0-46.0 [facility] Comment on above: Performed By: #### 5 7021-8 #### OMERO KNIGHT ([id number]) [facility] ([facility]) [address] [place] [address] 55511 Hemoglobin (Bld) [Mass/Vol] 13.0 g/dL Normal 12.0-16.0 [facility] Comment on above: Performed By: #### 5 7021-8 #### OMERO KNIGHT ([id number]) [facility] ([facility]) [address] [place] [address] 75327 MCH (RBC) [Entitic mass] 26.7 pg Normal 26.0-34.0 [facility] Comment on above: Performed By: #### 5 7021-8 #### OMERO KNIGHT ([id number]) [facility] ([facility]) [address] [place] [address] MCHC (RBC) [Mass/Vol] 32.3 g/dL Normal 32.0-36.0 [facility] Comment on above: Performed By: #### 5 7021-8 #### OMERO KNIGHT ([id number]) [facility] ([facility]) [address] [place] [address] 40574 MCV (RBC) [Entitic vol] 83 fL Normal 80-100 [facility] Comment on above: Performed By: #### 5 7021-8 #### OMERO KNIGHT ([id number]) [facility] ([facility]) [address] [place] [address] 28039 Nucleated RBC/100 WBC (Bld) [Ratio] 0.0 /100 WBCs Normal 0.0-0.0 [facility] Comment on above: Performed By: #### 5 7021-8 #### OMERO KNIGHT ([id number]) [facility] ([facility]) [address] [place] [address] 28754 Platelets (Bld) [#/Vol] 300 x10*3/uL Normal 150-450 [facility] Comment on above: Performed By: #### 5 7021-8 #### OMERO KNIGHT ([id number]) [facility] ([facility]) [address] [place] [address] 50653 RBC (Bld) [#/Vol] 4.86 x10*6/uL Normal 4.00-5.20 [facility] Comment on above: Performed By: #### 5 7021-8 #### OMERO KNIGHT ([id number]) [facility] ([facility]) [address] [place] [address] 32010 WBC (Bld) [#/Vol] 23.0 x10*3/uL High 4.4-11.3 [facility] Comment on above: Performed By: #### 5 7021-8 #### OMERO KNIGHT (59094) [facility] ([facility]) [address] [place], [place] [id number] Glucose Test strip manual (B ld) [Mass/Vol]on 10-12-2023 Glucose [Mass/Vol] 189 mg/dL High 74 - 99 mg/dL [facility] Interpretation and review of laboratory results Abnormal [facility] Glucose [Mass/Vol] 189 mg/dL High 74-99 [facility] Comment on above: Performed By: #### 2 341-6 ####OMERO KNIGHT ([id number])[facility] ([facility])[address] [place] [address] 16443 Glucose [Mass/Vol] 264 mg/dL High 74 - 99 mg/dL [facility] Interpretation and review of laboratory results Abnormal [facility] Glucose [Mass/Vol] 264 mg/dL High 74-99 [facility] Comment on above: Performed By: #### 5 7021-8 #### OMERO KNIGHT ([id number]) [facility] ([facility]) [address] [place] [address] 10446 Glucose [Mass/Vol] 167 mg/dL High 74 - 99 mg/dL [facility] Interpretation and review of laboratory results Abnormal [facility] Glucose [Mass/Vol] 167 mg/dL High 74-99 [facility] Comment on above: Performed By: #### 5 7021-8 #### OMERO KNIGHT ([id number]) [facility] ([facility]) [address] [place] [address] Glucose [Mass/Vol] 179 mg/dL High 74 - 99 mg/dL [facility] Interpretation and review of laboratory results Abnormal [facility] Glucose [Mass/Vol] 179 mg/dL High 74-99 [facility] Comment on above: Performed By: #### 5 7021-8 #### OMERO KNIGHT (35896) [facility] ([facility]) [address] [place] [address] Urine CultureOrdered By: Anastasiia Messer on 10-12-2023 Bacteria identified Cx Nom (U) >100,000 Proteus mirabilis Abnormal [facility] Basic metabolic 2000 panelon 10-11-2023 Anion gap [Moles/Vol] 17 mmol/L 10 - 2 0 mmol/L [facility] Calcium [Mass/Vol] 8.6 mg/dL 8.6 - 10. 3 mg/dL [facility] Chloride [Moles/Vol] 92 mmol/L Low 98 - 10 7 mmol/L [facility] CO2 [Moles/Vol] 21 mmol/L 21 - 32 mmol/L [facility] Creatinine [Mass/Vol] 0.90 mg/dL 0.50 - 1.05 mg/dL [facility] GFR/1.73 sq M.predicted among non-blacks MDRD (S/P/Bld) [Vol rate/Area] 67 mL/min/{1.73_m2} - PINF [facility] Comment on above: Calculations of hannah mated GFR are performed using the 2020 CKD-EPI Study Refit equation without the race variable for the IDMS-Traceable creatinine methods. https://jasn.asnjournals.org/content//ASN.08075 53472 Glucose [Mass/Vol] 192 mg/dL High 74 - 99 mg/dL [facility] Interpretation and review of laboratory results Abnormal [facility] Potassium [Moles/Vol] 4.0 mmol/L 3.5 - 5.3 mmol/L [facility] Comment on above: MILD HEMOLYSIS DETEC KAYLA. The result may be falsely elevated due to hemolysis or other interferents. Clinical correlation is recommended. Repeat testing may be considered. Sodium [Moles/Vol] 126 mmol/L Low 136 - 145 mmol/L [facility] Urea nitrogen [Mass/Vol] 35 mg/dL High 6 - 23 mg/dL [facility] Anion gap [Moles/Vol] 17 mmol/L Normal 10-20 [facility] Comment on above: Performed By: #### 2 341-6 #### OMERO KNIGHT (04386) [facility] ([facility]) [address] [place] [address] 95013 Calcium [Mass/Vol] 8.6 mg/dL Normal 8.6-10.3 [facility] Comment on above: Performed By: #### 2 341-6 #### OMERO KNIGHT ([id number]) [facility] ([facility]) [address] [place] [address] 07400 Chloride [Moles/Vol] 92 mmol/L Low 98-107 [facility] Comment on above: Performed By: #### 2 341-6 #### OMERO KNIGHT ([id number]) [facility] ([facility]) [address] [place] [address] 48090 CO2 [Moles/Vol] 21 mmol/L Normal 21-32 [facility] Comment on above: Performed By: #### 2 341-6 #### OMERO KNIGHT ([id number]) [facility] ([facility]) [address] [place] [address] 25212 Creatinine [Mass/Vol] 0.90 mg/dL Normal 0.50-1.05 [facility] Comment on above: Performed By: #### 2 341-6 #### OMERO KNIGHT ([id number]) [facility] ([facility]) [address] [place] [address] 77577 Glomerular filtration rate/1.73 sq M.predicted 67 mL/min/1.73m*2 Normal >60 [facility] Comment on above: Result Comment: Calc ulations of estimated GFR are performed using the 2020 CKD-EPI Study Refit equation without the race variable for the IDMS-Traceable creatinine methods. https://jasn.asnjournals.org/content//ASN.77416 01904 Performed By: #### 2 341-6 #### OMERO KNIGHT ([id number]) [facility] ([facility]) [address] [place] [address] 94684 Glucose [Mass/Vol] 192 mg/dL High 74-99 [facility] Comment on above: Performed By: #### 2 341-6 #### OMERO KNIGHT ([id number]) [facility] ([facility]) [address] [place] [address] 87456 Potassium [Moles/Vol] 4.0 mmol/L Normal 3.5-5.3 [facility] Comment on above: Result Comment: MILD HEMOLYSIS DETECTED. The result may be falsely elevated due to hemolysis or other interferents. Clinical correlation is recommended. Repeat testing may be considered. Performed By: #### 2 341-6 #### OMERO KNIGHT (15512) [facility] ([facility]) [address] [place] [address] 52291 Sodium [Moles/Vol] 126 mmol/L Low 136-145 [facility] Comment on above: Performed By: #### 2 341-6 #### OMERO KNIGHT ([id number]) [facility] ([facility]) [address] [place] [address] 79317 Urea nitrogen [Mass/Vol] 35 mg/dL High 6-23 [facility] Comment on above: Performed By: #### 2 341-6 #### OMERO KNIGHT ([id number]) [facility] ([facility]) [address] [place] [address] 14101 CBC panel Auto (Bld)on 10-10 Erythrocyte distribution width (RBC) [Ratio] 14.2 % 11.5 - 14.5 % [facility] Hematocrit (Bld) [Volume fraction] 37.3 % 36.0 - 46.0 % [facility] Hemoglobin (Bld) [Mass/Vol] 12.3 g/dL 12.0 - 16.0 g/dL [facility] Interpretation and review of laboratory results Abnormal [facility] MCH (RBC) [Entitic mass] 27.4 pg 26.0 - 34.0 pg [facility] MCHC (RBC) [Mass/Vol] 33.0 g/dL 32.0 - 36.0 g/dL [facility] MCV (RBC) [Entitic vol] 83 fL 80 - 100 fL [facility] Nucleated RBC/100 WBC (Bld) [Ratio] 0.0 % [facility] Platelets (Bld) [#/Vol] 218 10*3/uL [facility] RBC (Bld) [#/Vol] 4.49 10*6/uL [facility] WBC (Bld) [#/Vol] 20.1 10*3/uL High [facility] Erythrocyte distribution width (RBC) [Ratio] 14.2 % Normal 11.5-14.5 [facility] Comment on above: Performed By: #### 2 341-6 #### OMERO KNIGHT (55415) [facility] ([facility]) [address] [place] [address] 52014 Hematocrit (Bld) [Volume fraction] 37.3 % Normal 36.0-46.0 [facility] Comment on above: Performed By: #### 2 341-6 #### OMERO KNIGHT (15283) [facility] ([facility]) [address] [place] [address] 82737 Hemoglobin (Bld) [Mass/Vol] 12.3 g/dL Normal 12.0-16.0 [facility] Comment on above: Performed By: #### 2 341-6 #### OMERO KNIGHT ([id number]) [facility] ([facility]) [address] [place] [address] 87975 MCH (RBC) [Entitic mass] 27.4 pg Normal 26.0-34.0 [facility] Comment on above: Performed By: #### 2 341-6 #### OMERO KNIGHT ([id number]) [facility] ([facility]) [address] [place] [address] 73558 MCHC (RBC) [Mass/Vol] 33.0 g/dL Normal 32.0-36.0 [facility] Comment on above: Performed By: #### 2 341-6 #### OMERO KNIGHT (59476) [facility] ([facility]) [address] [place] [address] 95382 MCV (RBC) [Entitic vol] 83 fL Normal 80-100 [facility] Comment on above: Performed By: #### 2 341-6 #### OMERO KNIGHT ([id number]) [facility] ([facility]) [address] [place] [address] 63413 Nucleated RBC/100 WBC (Bld) [Ratio] 0.0 /100 WBCs Normal 0.0-0.0 [facility] Comment on above: Performed By: #### 2 341-6 #### OMERO KNIGHT ([id number]) [facility] ([facility]) [address] [place] [address] 55221 Platelets (Bld) [#/Vol] 218 x10*3/uL Normal 150-450 [facility] Comment on above: Performed By: #### 2 341-6 #### OMERO KNIGHT ([id number]) [facility] ([facility]) [address] [place] [address] 43597 RBC (Bld) [#/Vol] 4.49 x10*6/uL Normal 4.00-5.20 [facility] Comment on above: Performed By: #### 2 341-6 #### OMERO KNIGHT ([id number]) [facility] ([facility]) [address] [place] [address] 74002 WBC (Bld) [#/Vol] 20.1 x10*3/uL High 4.4-11.3 [facility] Comment on above: Performed By: #### 2 341-6 #### OMERO KNIGHT (39106) [facility] ([facility]) [address] [place] [address] 03357 Glucose Test strip manual (B ld) [Mass/Vol]on 10-11-2023 Glucose [Mass/Vol] 212 mg/dL High 74 - 99 mg/dL [facility] Interpretation and review of laboratory results Abnormal [facility] Glucose [Mass/Vol] 212 mg/dL High 74-99 [facility] Comment on above: Performed By: #### 5 7021-8 #### OMERO KNIGHT (59298) [facility] ([facility]) [address] [place] [address] 36942 Glucose [Mass/Vol] 204 mg/dL High 74 - 99 mg/dL [facility] Interpretation and review of laboratory results Abnormal [facility] Glucose [Mass/Vol] 204 mg/dL High 74-99 [facility] Comment on above: Performed By: #### 5 7021-8 #### OMERO KNIGHT (45114) [facility] ([facility]) [address] [place] [address] 42154 Glucose [Mass/Vol] 194 mg/dL High 74 - 99 mg/dL [facility] Interpretation and review of laboratory results Abnormal [facility] Glucose [Mass/Vol] 194 mg/dL High 74-99 [facility] Comment on above: Performed By: #### 5 7021-8 #### OMERO KNIGHT ([id number]) [facility] ([facility]) [address] [place] [address] 08702 Glucose [Mass/Vol] 182 mg/dL High 74 - 99 mg/dL [facility] Comment on above: RN/ NOTIFIED Interpretation and review of laboratory results Abnormal [facility] Glucose [Mass/Vol] 182 mg/dL High 74-99 [facility] Comment on above: Result Comment: FRIEDA Licea NOTIFIED Performed By: #### 5 7021-8 #### OMERO KNIGHT ([id number]) [facility] ([facility]) [address] [place] [address] 35370 Bacteria identifiedon 2023 Bacteria identified Cx Nom (U) Test: Urine Culture Specimen Source: Clean Catch/Voided Specimen Type: Urine Specimen Date: 10/10/20238 Result Date: 10/12/20231546 Result Status: Final result Abnormal: Yes Resulting Lab: [facility] [address] [address] CULTURE >100,000 Proteus mirabilis (Abnormal) SUSCEPTIBILITY Proteus mirabilis METHOD MICROSCAN --- AMPICILLIN <=8.000 mcg/mL Susceptible CEFAZOLIN <=2 mcg/mL Susceptible CEFAZOLIN (UNCOMPLICATED UTIS ONLY) <=2 mcg/mL Susceptible CIPROFLOXACIN <=0.250 mcg/mL Susceptible GENTAMICIN <=2.000 mcg/mL Susceptible NITROFURANTOIN >64 mcg/mL Resistant PIPERACILLIN/TAZOBACTAM <=8.000 mcg/mL Susceptible TETRACYCLINE >8.000 mcg/mL Resistant TRIMETHOPRIM/SULFAMETHOX AZOLE <=2/38 mcg/mL Susceptible Abnormal [facility] Comment on above: Performed By: #### 5 7021-8 #### JAMIL EUGENE ([id number]) [facility] ([facility]) [address] [place] [address] Basic metabolic 2000 panelon 10-10-2023 Anion gap [Moles/Vol] 14 mmol/L 10 - 2 0 mmol/L [facility] Calcium [Mass/Vol] 8.5 mg/dL Low 8.6 - 10. 3 mg/dL [facility] Chloride [Moles/Vol] 88 mmol/L Low 98 - 10 7 mmol/L [facility] CO2 [Moles/Vol] 27 mmol/L 21 - 32 mmol/L [facility] Creatinine [Mass/Vol] 1.13 mg/dL High 0.50 - 1.05 mg/dL [facility] GFR/1.73 sq M.predicted among non-blacks MDRD (S/P/Bld) [Vol rate/Area] 51 mL/min/{1.73_m2} Low - PINF [facility] Comment on above: Calculations of hannah mated GFR are performed using the 2020 CKD-EPI Study Refit equation without the race variable for the IDMS-Traceable creatinine methods. https://jasn.asnjournals.org/content//ASN.25705 69590 Glucose [Mass/Vol] 180 mg/dL High 74 - 99 mg/dL [facility] Interpretation and review of laboratory results Abnormal [facility] Potassium [Moles/Vol] 3.8 mmol/L 3.5 - 5.3 mmol/L [facility] Sodium [Moles/Vol] 125 mmol/L Low 136 - 145 mmol/L [facility] Urea nitrogen [Mass/Vol] 33 mg/dL High 6 - 23 mg/dL [facility] Anion gap [Moles/Vol] 14 mmol/L Normal 10-20 [facility] Comment on above: Performed By: #### 2 341-6 #### OMERO KNIGHT ([id number]) [facility] ([facility]) [address] [place] [address] Calcium [Mass/Vol] 8.5 mg/dL Low 8.6-10.3 [facility] Comment on above: Performed By: #### 2 341-6 #### OMERO KNIGHT ([id number]) [facility] ([facility]) [address] [place] [address] Chloride [Moles/Vol] 88 mmol/L Low 98-107 [facility] Comment on above: Performed By: #### 2 341-6 #### OMERO KNIGHT ([id number]) [facility] ([facility]) [address] [place] [address] CO2 [Moles/Vol] 27 mmol/L Normal 21-32 [facility] Comment on above: Performed By: #### 2 341-6 #### OMERO KNIGHT ([id number]) [facility] ([facility]) [address] [place] [address] Creatinine [Mass/Vol] 1.13 mg/dL High 0.50-1.05 [facility] Comment on above: Performed By: #### 2 341-6 #### OMERO KNIGHT ([id number]) [facility] ([facility]) [address] [place] [address]994 Glomerular filtration rate/1.73 sq M.predicted 51 mL/min/1.73m*2 Low >60 [facility] Comment on above: Result Comment: Calc ulations of estimated GFR are performed using the 2020 CKD-EPI Study Refit equation without the race variable for the IDMS-Traceable creatinine methods. https://jasn.asnjournals.org/content/early//ASN.46806 32700 Performed By: #### 2 341-6 #### OMERO KNIGHT ([id number]) [facility] ([facility]) [address] [place] [address] 87068 Glucose [Mass/Vol] 180 mg/dL High 74-99 [facility] Comment on above: Performed By: #### 2 341-6 #### OMERO KNIGHT ([id number]) [facility] ([facility]) [address] [place] [address] 32697 Potassium [Moles/Vol] 3.8 mmol/L Normal 3.5-5.3 [facility] Comment on above: Performed By: #### 2 341-6 #### OMERO KNIGHT ([id number]) [facility] ([facility]) [address] [place] [address] 31097 Sodium [Moles/Vol] 125 mmol/L Low 136-145 [facility] Comment on above: Performed By: #### 2 341-6 #### OMERO KNIGHT ([id number]) [facility] ([facility]) [address] [place] [address] 63162 Urea nitrogen [Mass/Vol] 33 mg/dL High 6-23 [facility] Comment on above: Performed By: #### 2 341-6 #### OMERO KNIGHT ([id number]) [facility] ([facility]) [address] [place] [address] 55725 Anion gap [Moles/Vol] 16 mmol/L 10 - 2 0 mmol/L [facility] Calcium [Mass/Vol] 8.8 mg/dL 8.6 - 10. 3 mg/dL [facility] Chloride [Moles/Vol] 89 mmol/L Low 98 - 10 7 mmol/L [facility] CO2 [Moles/Vol] 24 mmol/L 21 - 32 mmol/L [facility] Creatinine [Mass/Vol] 1.08 mg/dL High 0.50 - 1.05 mg/dL [facility] GFR/1.73 sq M.predicted among non-blacks MDRD (S/P/Bld) [Vol rate/Area] 54 mL/min/{1.73_m2} Low - PINF [facility] Comment on above: Calculations of hannah mated GFR are performed using the 2020 CKD-EPI Study Refit equation without the race variable for the IDMS-Traceable creatinine methods. https://jasn.asnjournals.org/content/early//ASN.84987 16506 Glucose [Mass/Vol] 202 mg/dL High 74 - 99 mg/dL [facility] Interpretation and review of laboratory results Abnormal [facility] Potassium [Moles/Vol] 3.9 mmol/L 3.5 - 5.3 mmol/L [facility] Sodium [Moles/Vol] 125 mmol/L Low 136 - 145 mmol/L [facility] Urea nitrogen [Mass/Vol] 32 mg/dL High 6 - 23 mg/dL [facility] Anion gap [Moles/Vol] 16 mmol/L Normal 10-20 [facility] Comment on above: Performed By: #### 2 341-6 #### OMERO KNIGHT ([id number]) [facility] ([facility]) [address] [place] [address] 78411 Calcium [Mass/Vol] 8.8 mg/dL Normal 8.6-10.3 [facility] Comment on above: Performed By: #### 2 341-6 #### OMERO KNIGHT ([id number]) [facility] ([facility]) [address] [place] [address] Chloride [Moles/Vol] 89 mmol/L Low 98-107 [facility] Comment on above: Performed By: #### 2 341-6 #### OMERO KNIGHT ([id number]) [facility] ([facility]) [address] [place] [address] CO2 [Moles/Vol] 24 mmol/L Normal 21-32 [facility] Comment on above: Performed By: #### 2 341-6 #### OMERO KNIGHT ([id number]) [facility] ([facility]) [address] [place] [address] 39567 Creatinine [Mass/Vol] 1.08 mg/dL High 0.50-1.05 [facility] Comment on above: Performed By: #### 2 341-6 #### OMERO KNIGHT ([id number]) [facility] ([facility]) [address] [place] [address] 86203 Glomerular filtration rate/1.73 sq M.predicted 54 mL/min/1.73m*2 Low >60 [facility] Comment on above: Result Comment: Calc ulations of estimated GFR are performed using the 2020 CKD-EPI Study Refit equation without the race variable for the IDMS-Traceable creatinine methods. https://jasn.asnjournals.org/content/early/ASN.71840 05366 Performed By: #### 2 341-6 #### OMERO KNIGHT ([id number]) [facility] ([facility]) [facility] [place] [address] Glucose [Mass/Vol] 202 mg/dL High 74-99 [facility] Comment on above: Performed By: #### 2 341-6 #### OMERO KNIGHT ([id number]) [facility] ([facility]) [address] [place] [address] 88202 Potassium [Moles/Vol] 3.9 mmol/L Normal 3.5-5.3 [facility] Comment on above: Performed By: #### 2 341-6 #### OMERO KNIGHT ([id number]) [facility] ([facility]) [address] [place] [address] Sodium [Moles/Vol] 125 mmol/L Low 136-145 [facility] Comment on above: Performed By: #### 2 341-6 #### JAMIL LISAZOILA ([id number]) [facility] ([facility]) [address] [place] [address] Urea nitrogen [Mass/Vol] 32 mg/dL High 6-23 [facility] Comment on above: Performed By: #### 2 341-6 #### JAMIL LISAZOILA ([id number]) [facility] ([facility]) [address] [place] [address] Anion gap [Moles/Vol] 17 mmol/L [facility] Calcium [Mass/Vol] 9.3 mg/dL 8.6 - 10. 3 mg/dL [facility] Chloride [Moles/Vol] 86 mmol/L Low 98 - 10 7 mmol/L [facility] CO2 [Moles/Vol] 27 mmol/L 21 - 32 mmol/L [facility] Creatinine [Mass/Vol] 1.09 mg/dL High 0.50 - 1.05 mg/dL [facility] GFR/1.73 sq M.predicted among non-blacks MDRD (S/P/Bld) [Vol rate/Area] 53 mL/min/{1.73_m2} Low - PINF [facility] Comment on above: Calculations of hannah mated GFR are performed using the 2020 CKD-EPI Study Refit equation without the race variable for the IDMS-Traceable creatinine methods. https://jasn.asnjournals.org/content//ASN.89202 38553 Glucose [Mass/Vol] 171 mg/dL High 74 - 99 mg/dL [facility] Interpretation and review of laboratory results Abnormal [facility] Potassium [Moles/Vol] 4.2 mmol/L 3.5 - 5.3 mmol/L [facility] Sodium [Moles/Vol] 126 mmol/L Low 136 - 145 mmol/L [facility] Urea nitrogen [Mass/Vol] 31 mg/dL High 6 - 23 mg/dL [facility] Anion gap [Moles/Vol] 17 mmol/L Normal [facility] Comment on above: Performed By: #### 2 4321-2 #### OMERO KNIGHT ([id number]) [facility] ([facility]) [address] [place] [address] Calcium [Mass/Vol] 9.3 mg/dL Normal 8.6-10.3 [facility] Comment on above: Performed By: #### 2 4321-2 #### OMERO KNIGHT ([id number]) [facility] ([facility]) [facility] [place] [address] Chloride [Moles/Vol] 86 mmol/L Low 98-107 [facility] Comment on above: Performed By: #### 2 4321-2 #### OMERO KNIGHT ([id number]) [facility] ([facility]) [address] [place] [address] CO2 [Moles/Vol] 27 mmol/L Normal 21-32 [facility] Comment on above: Performed By: #### 2 4321-2 #### OMERO KNIGHT ([id number]) [facility] ([facility]) [address] [place] [address] Creatinine [Mass/Vol] 1.09 mg/dL High 0.50-1.05 [facility] Comment on above: Performed By: #### 2 4321-2 #### OMERO KNIGHT ([id number]) [facility] ([facility]) [address] [place] [address] Glomerular filtration rate/1.73 sq M.predicted 53 mL/min/1.73m*2 Low >60 [facility] Comment on above: Result Comment: Calc ulations of estimated GFR are performed using the 2020 CKD-EPI Study Refit equation without the race variable for the IDMS-Traceable creatinine methods. https://jasn.asnjournals.org/content//ASN.94538 50284 Performed By: #### 2 4321-2 #### OMERO KNIGHT ([id number]) [facility] ([facility]) [address] [place] [address] 29827 Glucose [Mass/Vol] 171 mg/dL High 74-99 [facility] Comment on above: Performed By: #### 2 4321-2 #### OMERO KNIGHT ([id number]) [facility] ([facility]) [address] [place] [address] 38772 Potassium [Moles/Vol] 4.2 mmol/L Normal 3.5-5.3 [facility] Comment on above: Performed By: #### 2 4321-2 #### OMERO KNIGHT (42406) [facility] ([facility]) [address] [place] [address] 91922 Sodium [Moles/Vol] 126 mmol/L Low 136-145 [facility] Comment on above: Performed By: #### 2 4321-2 #### OMERO KNIGHT ([id number]) [facility] ([facility]) [address] [place] [address] 62299 Urea nitrogen [Mass/Vol] 31 mg/dL High 6-23 [facility] Comment on above: Performed By: #### 2 4321-2 #### OMERO KNIGHT ([id number]) [facility] ([facility]) [address] [place] [address] 87543 CBC W Auto Differential pane l (Bld)on 10-10-2023 Basophils (Bld) [#/Vol] 0.05 10*3/uL [facility] Basophils/100 WBC (Bld) 0.3 % 0.0 - 2.0 % [facility] Eosinophils (Bld) [#/Vol] 0.03 10*3/uL [facility] Eosinophils/100 WBC (Bld) 0.2 % 0.0 - 6.0 % [facility] Erythrocyte distribution width (RBC) [Ratio] 13.9 % 11.5 - 14.5 % [facility] Hematocrit (Bld) [Volume fraction] 41.4 % 36.0 - 46.0 % [facility] Hemoglobin (Bld) [Mass/Vol] 13.6 g/dL 12.0 - 16.0 g/dL [facility] Immature granulocytes (Bld) [#/Vol] 0.23 10*3/uL [facility] Immature granulocytes/100 WBC (Bld) 1.3 % High 0.0 - 0.9 % [facility] Comment on above: Immature Granulocyte Count (IG) includes promyelocytes, myelocytes and metamyelocytes but does not include bands. Percent differential counts (%) should be interpreted in the context of the absolute cell counts (cells/UL). Interpretation and review of laboratory results Abnormal [facility] Lymphocytes (Bld) [#/Vol] 0.76 10*3/uL Low [facility] Lymphocytes/100 WBC (Bld) 4.4 % 13.0 - 44.0 % [facility] MCH (RBC) [Entitic mass] 27.0 pg 26.0 - 34.0 pg [facility] MCHC (RBC) [Mass/Vol] 32.9 g/dL 32.0 - 36.0 g/dL [facility] MCV (RBC) [Entitic vol] 82 fL 80 - 100 fL [facility] Monocytes (Bld) [#/Vol] 0.88 10*3/uL High [facility] Monocytes/100 WBC (Bld) 5.1 % 2.0 - 10.0 % [facility] Neutrophils (Bld) [#/Vol] 15.29 10*3/uL High [facility] Comment on above: Percent differential counts (%) should be interpreted in the context of the absolute cell counts (cells/uL). Neutrophils/100 WBC (Bld) 88.7 % 40.0 - 80.0 % [facility] Nucleated RBC/100 WBC (Bld) [Ratio] 0.0 % [facility] Platelets (Bld) [#/Vol] 251 10*3/uL [facility] RBC (Bld) [#/Vol] 5.03 10*6/uL [facility] WBC (Bld) [#/Vol] 17.2 10*3/uL High [facility] Basophils (Bld) [#/Vol] 0.05 x10*3/uL Normal 0.00-0.10 [facility] Comment on above: Performed By: #### 5 7021-8 #### OMERO KNIGHT ([id number]) [facility] ([facility]) [address] [place] [address] 48040 Basophils/100 WBC (Bld) 0.3 % Normal 0.0-2.0 [facility] Comment on above: Performed By: #### 5 7021-8 #### OMERO KNIGHT ([id number]) [facility] ([facility]) [address] [place] [address] 63291 Eosinophils (Bld) [#/Vol] 0.03 x10*3/uL Normal 0.00-0.40 [facility] Comment on above: Performed By: #### 5 7021-8 #### OMERO KNIGHT ([id number]) [facility] ([facility]) [address] [place] [address] 52374 Eosinophils/100 WBC (Bld) 0.2 % Normal 0.0-6.0 [facility] Comment on above: Performed By: #### 5 7021-8 #### OMERO KNIGHT ([id number]) [facility] ([facility]) [address] [place] [address] 64229 Erythrocyte distribution width (RBC) [Ratio] 13.9 % Normal 11.5-14.5 [facility] Comment on above: Performed By: #### 5 7021-8 #### OMERO KNIGHT ([id number]) [facility] ([facility]) [address] [place] [address] 53883 Hematocrit (Bld) [Volume fraction] 41.4 % Normal 36.0-46.0 [facility] Comment on above: Performed By: #### 5 7021-8 #### OMERO KNIGHT ([id number]) [facility] ([facility]) [address] [place] [address] 85621 Hemoglobin (Bld) [Mass/Vol] 13.6 g/dL Normal 12.0-16.0 [facility] Comment on above: Performed By: #### 5 7021-8 #### OMERO KNIGHT ([id number]) [facility] ([facility]) [address] [place] [address] 95251 Immature granulocytes (Bld) [#/Vol] 0.23 x10*3/uL Normal 0.00-0.50 [facility] Comment on above: Performed By: #### 5 7021-8 #### OMERO KNIGHT (33696) [facility] ([facility]) [address] [place] [address] 75938 Immature granulocytes/100 WBC (Bld) 1.3 % High 0.0-0.9 [facility] Comment on above: Result Comment: Martina ture Granulocyte Count (IG) includes promyelocytes, myelocytes and metamyelocytes but does not include bands. Percent differential counts (%) should be interpreted in the context of the absolute cell counts (cells/UL). Performed By: #### 5 7021-8 #### OMERO KNIGHT ([id number]) [facility] ([facility]) [address] [place] [address] 55472 Lymphocytes (Bld) [#/Vol] 0.76 x10*3/uL Low 0.80-3.00 [facility] Comment on above: Performed By: #### 5 7021-8 #### OMERO KNIGHT ([id number]) [facility] ([facility]) [address] [place] [address] 12510 Lymphocytes/100 WBC (Bld) 4.4 % Normal 13.0-44.0 [facility] Comment on above: Performed By: #### 5 7021-8 #### OMERO KNIGHT (60605) [facility] ([facility]) [address] [place] [address] 32588 MCH (RBC) [Entitic mass] 27.0 pg Normal 26.0-34.0 [facility] Comment on above: Performed By: #### 5 7021-8 #### OMERO KNIGHT ([id number]) [facility] ([facility]) [address] [place] [address] 32098 MCHC (RBC) [Mass/Vol] 32.9 g/dL Normal 32.0-36.0 [facility] Comment on above: Performed By: #### 5 7021-8 #### OMERO KNIGHT ([id number]) [facility] ([facility]) [address] [place] [address] 45389 MCV (RBC) [Entitic vol] 82 fL Normal 80-100 [facility] Comment on above: Performed By: #### 5 7021-8 #### OMERO KNIGHT (31527) [facility] ([facility]) [address] [place] [address] 28462 Monocytes (Bld) [#/Vol] 0.88 x10*3/uL High 0.05-0.80 [facility] Comment on above: Performed By: #### 5 7021-8 #### OMERO KNIGHT (50672) [facility] ([facility]) [address] [place] [address] 74440 Monocytes/100 WBC (Bld) 5.1 % Normal 2.0-10.0 [facility] Comment on above: Performed By: #### 5 7021-8 #### OMERO KNIGHT ([id number]) [facility] ([facility]) [address] [place] [address] 73189 Neutrophils (Bld) [#/Vol] 15.29 x10*3/uL High 1.60-5.50 [facility] Comment on above: Result Comment: Perc ent differential counts (%) should be interpreted in the context of the absolute cell counts (cells/uL). Performed By: #### 5 7021-8 #### OMERO KNIGHT ([id number]) [facility] ([facility]) [address] [place] [address] 35767 Neutrophils/100 WBC (Bld) 88.7 % Normal 40.0-80.0 [facility] Comment on above: Performed By: #### 5 7021-8 #### OMERO KNIGHT ([id number]) [facility] ([facility]) [address] [place] [address] 97201 Nucleated RBC/100 WBC (Bld) [Ratio] 0.0 /100 WBCs Normal 0.0-0.0 [facility] Comment on above: Performed By: #### 5 7021-8 #### OMERO KNIGHT (86504) [facility] ([facility]) [address] [place] [address] 88598 Platelets (Bld) [#/Vol] 251 x10*3/uL Normal 150-450 [facility] Comment on above: Performed By: #### 5 7021-8 #### OMERO KNIGHT (65392) [facility] ([facility]) [address] [place] [address] RBC (Bld) [#/Vol] 5.03 x10*6/uL Normal 4.00-5.20 [facility] Comment on above: Performed By: #### 5 7021-8 #### OMERO KNIGHT ([id number]) [facility] ([facility]) [address] [place], [place] [address] WBC (Bld) [#/Vol] 17.2 x10*3/uL High 4.4-11.3 [facility] Comment on above: Performed By: #### 5 7021-8 #### OMERO KNIGHT (15674) [facility] ([facility]) [address] [place] [address] CBC panel Auto (Bld)on 10-09 Erythrocyte distribution width (RBC) [Ratio] 13.9 % 11.5 - 14.5 % [facility] Hematocrit (Bld) [Volume fraction] 36.1 % 36.0 - 46.0 % [facility] Hemoglobin (Bld) [Mass/Vol] 11.8 g/dL Low 12.0 - 16.0 g/dL [facility] Interpretation and review of laboratory results Abnormal [facility] MCH (RBC) [Entitic mass] 26.9 pg 26.0 - 34.0 pg [facility] MCHC (RBC) [Mass/Vol] 32.7 g/dL 32.0 - 36.0 g/dL [facility] MCV (RBC) [Entitic vol] 82 fL 80 - 100 fL [facility] Nucleated RBC/100 WBC (Bld) [Ratio] 0.0 % [facility] Platelets (Bld) [#/Vol] 210 10*3/uL [facility] RBC (Bld) [#/Vol] 4.39 10*6/uL [facility] WBC (Bld) [#/Vol] 26.0 10*3/uL High [facility] Erythrocyte distribution width (RBC) [Ratio] 13.9 % Normal 11.5-14.5 [facility] Comment on above: Performed By: #### 2 341-6 #### OMERO KNIGHT (17556) [facility] ([facility]) [address] [place] [address] Hematocrit (Bld) [Volume fraction] 36.1 % Normal 36.0-46.0 [facility] Comment on above: Performed By: #### 2 341-6 #### OMERO KNIGHT ([id number]) [facility] ([facility]) [address] [place] [address] 60688 Hemoglobin (Bld) [Mass/Vol] 11.8 g/dL Low 12.0-16.0 [facility] Comment on above: Performed By: #### 2 341-6 #### OMERO KNIGHT (94263) [facility] ([facility]) [address] [place] [address] 30388 MCH (RBC) [Entitic mass] 26.9 pg Normal 26.0-34.0 [facility] Comment on above: Performed By: #### 2 341-6 #### OMERO KNIGHT ([id number]) [facility] ([facility]) [address] [place] [address] 78001 MCHC (RBC) [Mass/Vol] 32.7 g/dL Normal 32.0-36.0 [facility] Comment on above: Performed By: #### 2 341-6 #### OMERO KNIGHT ([id number]) [facility] ([facility]) [address] [place] [address] 05275 MCV (RBC) [Entitic vol] 82 fL Normal 80-100 [facility] Comment on above: Performed By: #### 2 341-6 #### OMERO KNIGHT ([id number]) [facility] ([facility]) [address] [place] [address] 36858 Nucleated RBC/100 WBC (Bld) [Ratio] 0.0 /100 WBCs Normal 0.0-0.0 [facility] Comment on above: Performed By: #### 2 341-6 #### OMERO KNIGHT ([id number]) [facility] ([facility]) [address] [place] [address] 17820 Platelets (Bld) [#/Vol] 210 x10*3/uL Normal 150-450 [facility] Comment on above: Performed By: #### 2 341-6 #### OMERO KNIGHT ([id number]) [facility] ([facility]) [address] [place] [address] RBC (Bld) [#/Vol] 4.39 x10*6/uL Normal 4.00-5.20 [facility] Comment on above: Performed By: #### 2 341-6 #### OMERO KNIGHT ([id number]) [facility] ([facility]) [address] [place] [address] 68805 WBC (Bld) [#/Vol] 26.0 x10*3/uL High 4.4-11.3 [facility] Comment on above: Performed By: #### 2 341-6 #### OMERO KNIGHT ([id number]) [facility] ([facility]) [address] [place] [address] CT [facility] ABDOMEN PELVIS WO IV CONTRAST Interpreted By: Vlad Araya, STUDY: CT ABDOMEN PELVIS WO IV CONTRAST; 10/10/2023 2:45 am INDICATION: Signs/Symptoms:back pain w/o injury. COMPARISON: CT scan of the abdomen 01/05/2020 ACCESSION NUMBER(S): [id number] ORDERING CLINICIAN: FLAVIO MILES TECHNIQUE: Axial noncontrast [...] Normal caliber. GALLBLADDER: Status post cholecystectomy. PANCREAS: [id number] fatty atrophy of the pancreas. SPLEEN: Splenomegaly [...] Vlad Araya 10/10/2023 3:17 AM Dictation workstation: [id number] [facility] CT Abdomen WO contraston Several nonobstructi [...] Vlad Araya 10/10/2023 3:17 AM Dictation workstation: [id number] Interpreted By: Vlad Schneider, STUDY: CT ABDOMEN PELVIS WO IV CONTRAST; 10/10/2023 2:45 am INDICATION: Signs/Symptoms:back pain w/o injury. COMPARISON: CT scan of the abdomen 01/05/2020 ACCESSION NUMBER(S): [id number] ORDERING CLINICIAN: FLAVIO MILES TECHNIQUE: Axial noncontrast [...] Normal caliber. GALLBLADDER: Status post cholecystectomy. PANCREAS: Htma-of-yebniqnu fatty atrophy of the pancreas. SPLEEN: Splenomegaly [...] scan of the abdomen 01/05/2020 ACCESSION NUMBER(S): [id number] ORDERING CLINICIAN: FLAVIO MILES TECHNIQUE: Axial noncontrast [...] Normal caliber. GALLBLADDER: Status post cholecystectomy. PANCREAS: Rhti-av-fflvglpt fatty atrophy of the pancreas. SPLEEN: Splenomegaly [...] Vlad Araya 10/10/2023 3:17 AM Dictation workstation: [id number] [facility] Work Phone: [facility] Work Phone: Radiology Study observation (narrative) [facility] Work Phone: ECG 12-LEADon 10-10-2023 ECG 12-LEAD Ventricular Rate 112 QRS Duration 106 Q-T Interval 338 QTC Calculation(Bazett) 461 R [place]o Verde -62 T [place] 104 QRS Count 19 Q Onset 208 T Offset 377 QTC Fredericia 416 Diagnosis Atrial fibrillation with rapid ventricular response with premature ventricular or aberrantly conducted complexes Left anterior fascicular block Possible Anterior infarct , age undetermined ST & T wave abnormality, consider lateral ischemia Abnormal ECG See ED provider note for full interpretation and clinical correlation Confirmed by Sophie Florian ([id number]) on 10/18/2023 8:16:18 PM Normal [facility] Glucose Test strip manual (B ld) [Mass/Vol]on 10-10-2023 Glucose [Mass/Vol] 178 mg/dL High 74 - 99 mg/dL [facility] Interpretation and review of laboratory results Abnormal [facility] Glucose [Mass/Vol] 178 mg/dL High 74-99 [facility] Comment on above: Performed By: #### 2 341-6 #### JAMIL EUGENE ([id number]) [facility] ([facility]) [address] [place] [address] Glucose [Mass/Vol] 209 mg/dL High 74 - 99 mg/dL [facility] Interpretation and review of laboratory results Abnormal [facility] Glucose [Mass/Vol] 209 mg/dL High 74-99 [facility] Comment on above: Performed By: #### 2 341-6 #### OMERO KNIGHT ([id number]) [facility] ([facility]) [address] [place] [address] Glucose [Mass/Vol] 187 mg/dL High 74 - 99 mg/dL [facility] Interpretation and review of laboratory results Abnormal [facility] Glucose [Mass/Vol] 187 mg/dL High 74-99 [facility] Comment on above: Performed By: #### 2 341-6 #### OMERO KNIGHT ([id number]) [facility] ([facility]) [address] [place] [address]47 Glucose [Mass/Vol] 215 mg/dL High 74 - 99 mg/dL [facility] Interpretation and review of laboratory results Abnormal [facility] Glucose [Mass/Vol] 215 mg/dL High 74-99 [facility] Comment on above: Performed By: #### 2 341-6 #### OMERO KNIGHT ([id number]) [facility] ([facility]) [address] [place] [address] 39947 Glucose [Mass/Vol] 174 mg/dL High 74 - 99 mg/dL [facility] Comment on above: RN/ NOTIFIED Interpretation and review of laboratory results Abnormal [facility] Glucose [Mass/Vol] 174 mg/dL High 74-99 [facility] Comment on above: Result Comment: UZMA/Shaheen Licea NOTIFIED Performed By: #### 2 341-6 #### OMERO KNIGHT ([id number]) [facility] ([facility]) [address] [place] [address]178 Lavender Topon 10-10-2023 Extra Tube Hold for add-ons. [facility] Comment on above: Auto resulted. [facility] Natriuretic peptide B [Mass/ Vol]on 10-10-2023 Interpretation and review of laboratory results Abnormal [facility] Natriuretic peptide B (Bld) [Mass/Vol] 225 pg/mL High 0 - 99 pg/mL [facility] <100 pg/mL - Heart failure unlikely 100-299 pg/mL - Intermediate probability of acute heart failure exacerbation. Correlate with clinical context and patient history. >=300 pg/mL - Heart Failure likely. Correlate with clinical context and patient history. BNP testing is performed using different testing methodology at [facility] than at other legacy [facility]. Direct result comparisons should only be made within the same method. [facility] Natriuretic peptide B (Bld) [Mass/Vol] 225 pg/mL High 0-99 [facility] Comment on above: Order Comment: <100 pg/mL - Heart failure unlikely 100-299 pg/mL - Intermediate probability of acute heart failure exacerbation. Correlate with clinical context and patient history. >=300 pg/mL - Heart Failure likely. Correlate with clinical context and patient history. BNP testing is performed using different testing methodology at [facility] than at other [facility]. Direct result comparisons should only be made within the same method. Performed By: #### 3 0934-4 #### JAMIL EUGENE ([id number]) [facility] ([facility]) [address] [place] [address] Tropinin I.cardiac panel Hig h sensitivity methodon 10-10-2023 Interpretation and review of laboratory results Normal [facility] Less than 99th percentile of normal range [...] performed using a different testing methodology at [facility] than at other [facility]. Direct result comparisons should only be made within the same method. [facility] Interpretation and review of laboratory results Normal [facility] Less than 99th percentile of normal range [...] performed using a different testing methodology at [facility] than at [facility]. Direct result comparisons should only be made within the same method. [facility] Troponin I, High Sensitivity , Initialon 10-10-2023 Tropinin I.cardiac panel High sensitivity method 12 ng/L 0 - 13 ng/L [facility] Troponin I.cardiac panelon 0 10-10-2023 Tropinin I.cardiac panel High sensitivity method 12 ng/L Normal 0-13 [facility] Comment on above: Order Comment: Less [...] performed using a different testing methodology at [facility] than at [facility]. Direct result comparisons should only be made within the same method. Performed By: #### 8 9577-1 #### JAMIL EUGENE ([id number]) [facility] ([facility]) [address] [place] [address] Tropinin I.cardiac panel High sensitivity method 12 ng/L Normal 0-13 [facility] Comment on above: Order Comment: Less [...] performed using a different testing methodology at [facility] than at other [facility]. Direct result comparisons should only be made within the same method. Performed By: #### 8 9577-1 #### JAMIL EUGENE ([id number]) [facility] ([facility]) [address] [place] [address] Troponin, High Sensitivity, 1 Houron 10-10-2023 Tropinin I.cardiac panel High sensitivity method 12 ng/L 0 - 13 ng/L [facility] Urinalysis complete W Reflex Culture panel (U)Ordered By: Diana Barros on 10-10-2023 Appearance (U) Turbid Abnormal Clear [facility] Bilirubin (U) [Mass/Vol] Negative NEGATIVE [facility] Color (U) Yellow Light-Yellow , Yellow, Dark-Yellow [facility] Glucose Auto test strip (U) [Mass/Vol] Normal Normal mg/dL [facility] Interpretation and review of laboratory results Abnormal [facility] Ketones (U) [Mass/Vol] 10 (1+) Abnormal NEGAT JORGE mg/dL [facility] Leukocyte esterase Auto test strip Ql (U) 500 Ray/ L Abnormal NEGATIVE [facility] Nitrite Auto test strip Ql (U) 2+ Abnormal NEGATIVE [facility] pH (U) 8.0 [pH] 5.0, 5.5, 6.0, 6.5, 7.0, 7.5, 8.0 [facility] Protein (U) [Mass/Vol] 70 (1+) Abnormal NEGAT JORGE, 10 (TRACE), 20 (TRACE) mg/dL [facility] RBC (U) [#/Vol] 0.1 (1+) Abnormal NEGATIVE [facility] Specific gravity (U) [Rel density] 1.027 1.005 - 1.035 [facility] Urobilinogen (U) [Mass/Vol] 3 (1+) Abnormal Normal mg/dL [facility] Comment on above: Some pigments and me dications may cause a false positive urobilinogen. [facility] Urinalysis complete W Reflex Culture panel (U)on 10-10-2023 Appearance (U) Turbid Normal Clear [facility] Comment on above: Performed By: #### 5 8077-9 #### OMERO KNIGHT ([id number]) [facility] ([facility]) [address] [place] [address] Bilirubin (U) [Mass/Vol] Negative Normal NEGATIVE [facility] Comment on above: Performed By: #### 5 8077-9 #### OMERO KNIGHT ([id number]) [facility] ([facility]) [address] [place] [address] Color (U) Yellow Normal Light-Yellow , Yellow, Dark-Yellow [facility] Comment on above: Performed By: #### 5 8077-9 #### OMERO KNIGHT ([id number]) [facility] ([facility]) [address] [place], [place] [address] Glucose Auto test strip (U) [Mass/Vol] Normal Normal Normal [facility] Comment on above: Performed By: #### 5 8077-9 #### OMERO KNIGHT ([id number]) [facility] ([facility]) [address] [place] [address] 45678 Ketones (U) [Mass/Vol] 10 (1+) [facility]normal [facility] Performed By: #### 5 8077-9 #### OMERO KNIGHT ([id number]) [facility] ([facility]) [address] [place] [address]3240 Leukocyte esterase Auto test strip Ql (U) 500 Ray/???L Abnormal NEGATIVE [facility] Comment on above: Performed By: #### 5 8077-9 #### OMERO KNIGHT ([id number]) [facility] ([facility]) [address] [place] [address] Nitrite Auto test strip Ql (U) 2+ Abnormal NEGATIVE [facility] Comment on above: Performed By: #### 5 8077-9 #### OMERO KNIGHT ([id number]) [facility] ([facility]) [address] [place] [address] pH (U) 8.0 [pH] Normal 5.0, 5.5, 6.0, 6.5, 7.0, 7.5, 8.0 [facility] Comment on above: Performed By: #### 5 8077-9 #### OMERO KNIGHT ([id number]) [facility] ([facility]) [address] [place] [address] Protein (U) [Mass/Vol] 70 (1+) Abnormal NEGAT JORGE, 10 (TRACE), 20 (TRACE) [facility] Comment on above: Performed By: #### 5 8077-9 #### OMERO KNIGHT ([id number]) [facility] ([facility]) [address] [place] [address] RBC (U) [#/Vol] 0.1 (1+) Abnormal NEGATIVE [facility] Comment on above: Performed By: #### 5 8077-9 #### OMERO KNIGHT ([id number]) [facility] ([facility]) [address] [place] [address] Specific gravity (U) [Rel density] 1.027 Normal 1.005-1.035 [facility] Comment on above: Performed By: #### 5 8077-9 #### OMERO KNIGHT ([id number]) [facility] ([facility]) [address] [place] [address] Urobilinogen (U) [Mass/Vol] 3 (1+) Abnormal Normal [facility] Comment on above: Result Comment: Some pigments and medications may cause a false positive urobilinogen. Performed By: #### 5 8077-9 #### OMERO KNIGHT ([id number]) [facility] ([facility]) [address] [place] [address] Urinalysis microscopic panel Auto Ql (U)on 10-10-2023 Bacteria Auto (Urine sed) [#/Area] 1+ Abnormal NONE SEEN /HPF [facility] Crystals.amorphous Computer assisted (U) [#/Area] 1+ NONE, 1+, 2+ /HPF [facility] Epithelial cells.squamous Auto (Urine sed) [#/Area] 1-9 (SPARSE) Reference range not established. /HPF [facility] Interpretation and review of laboratory results Abnormal [facility] Mucus Auto (Urine sed) [#/Area] FEW Reference range not established. /LPF [facility] RBC Auto (Urine sed) [#/Area] 3-5 NONE, 1-2, 3-5 /HPF [facility] WBC Auto (Urine sed) [#/Area] 21-50 Abnormal 1-5, NONE /HPF [facility] Bacteria Auto (Urine sed) [#/Area] 1+ /HPF Abnormal NONE SEEN [facility] Comment on above: Performed By: #### 2 341-6 #### OMERO KNIGHT ([id number]) [facility] ([facility]) [address] [place] [address] Crystals.amorphous Computer assisted (U) [#/Area] 1+ /HPF Normal NONE, 1+, 2+ [facility] Comment on above: Performed By: #### 2 341-6 #### OMERO KNIGHT ([id number]) [facility] ([facility]) [address] [place] [address] Epithelial cells.squamous Auto (Urine sed) [#/Area] 1-9 (SPARSE) Normal Reference range not established. [facility] Comment on above: Performed By: #### 2 341-6 #### OMERO KNIGHT ([id number]) [facility] ([facility]) [address] [place] [address] Mucus Auto (Urine sed) [#/Area] FEW Normal Reference range not established. [facility] Comment on above: Performed By: #### 2 341-6 #### OMERO KNIGHT ([id number]) [facility] ([facility]) [facility] [place] [address] RBC Auto (Urine sed) [#/Area] 3-5 Normal NONE, 1-2, 3-5 [facility] Comment on above: Performed By: #### 2 341-6 #### OMERO KNIGHT ([id number]) [facility] ([facility]) [address] [place] [address] 89096 WBC Auto (Urine sed) [#/Area] 21-50 Abnormal 1-5, NONE [facility] Comment on above: Performed By: #### 2 341-6 #### OMERO KNIGHT ([id number]) [facility] ([facility]) [address] [place] [address] XR CHEST 1 VIEWon 10-10-2023 XR CHEST 1 VIEW Interpreted By: Vlad Schneider, STUDY: XR CHEST 1 VIEW; 10/10/2023 2:03 am INDICATION: Signs/Symptoms:weakness. COMPARISON: Chest x-ray 09/08/2022 ACCESSION NUMBER(S): [id number] ORDERING CLINICIAN: FLAVIO MILES FINDINGS: Multiple overlying leads are present. CARDIOMEDIASTINAL SILHOUETTE: Cardiomediastinal silhouette is stable in size and configuration. LUNGS: No consolidation, pleural effusion or pneumothorax. ABDOMEN: No remarkable upper abdominal findings. BONES: Multilevel degenerative changes of the spine. Bilateral shoulder osteoarthrosis. IMPRESSION: No acute cardiopulmonary process. MACRO: None Signed by: Vlad Araya 10/10/2023 2:11 AM Dictation workstation: [id number] Normal [facility] XR Chest Single viewon 10-09 No acute cardiopulmo nary process. MACRO: None Signed by: Vlad Araya 10/10/2023 2:11 AM Dictation workstation: [id number] [facility] Interpreted By: Vlad Schneider, STUDY: XR CHEST 1 VIEW; 10/10/2023 2:03 am INDICATION: Signs/Symptoms:weakness. COMPARISON: Chest x-ray 09/08/2022 ACCESSION NUMBER(S): [id number] ORDERING CLINICIAN: FLAVIO MILES FINDINGS: Multiple overlying [...] Signs/Symptoms:weakness. COMPARISON: Chest x-ray 09/08/2022 ACCESSION NUMBER(S): [id number] ORDERING CLINICIAN: FLAVIO MILES FINDINGS: Multiple overlying leads are present. CARDIOMEDIASTINAL SILHOUETTE: Cardiomediastinal silhouette is stable in size and configuration. LUNGS: No consolidation, pleural effusion or pneumothorax. ABDOMEN: No remarkable upper abdominal findings. BONES: Multilevel degenerative changes of the spine. Bilateral shoulder osteoarthrosis. IMPRESSION: No acute cardiopulmonary process. MACRO: None Signed by: Vlad Araya 10/10/2023 2:11 AM Dictation workstation: [id number] [facility] Work Phone: Radiology Study observation (narrative) [facility] Work Phone: XR Chest Single viewOrdered By: Vlad Araya on 10-10-2023 [facility] Work Phone: ALKALINE PHOSPHATASE, ISOENZ YMESon 08-03-2023 ALP [Catalytic activity/Vol] 132 U/L High 40-120 [facility] Comment on above: Performed By: #### 1 9123-9 #### OMERO KNIGHT ([id number]) [facility] ([facility]) [address] [place] [address] 92707 ALP Bone [Catalytic activity/Vol] 42 U/L Normal 0-55 [facility] Comment on above: Performed By: #### 1 9123-9 #### OMERO KNIGHT ([id number]) [facility] ([facility]) [address] [place] [address] ALP Liver [Catalytic activity/Vol] 90 U/L Normal 0-94 [facility] Comment on above: Result Comment: INTE RPRETIVE INFORMATION: Alk-Phosphatase Liver Calc Bone Specific Alkaline Phosphatase (3255430) and 5'-nucleotidase (5247164) may be useful in identifying disorders of bone and liver, respectively. Performed By: #### 1 9123-9 #### OMERO KNIGHT ([id number]) [facility] ([facility]) [address] [place] [address] 05822 ALP Other [Catalytic activity/Vol] 0 U/L Normal [facility] Comment on above: Result Comment: Perf ormed By: [facility] [address] [place] [address] Bookmaker Map: Shayan Licona MD, PhD CLIA Number: [id number] Performed By: #### 1 9123-9 #### OMERO KNIGHT ([id number]) [facility] ([facility]) [address] [place] [address] 96464 Gamma glutamyl transferaseon 08-03-2023 Gamma glutamyl transferase [Catalytic activity/Vol] 26 U/L Normal 5-55 [facility] Comment on above: Performed By: #### 1 9123-9 #### OMERO KNIGHT ([id number]) [facility] ([facility]) [address] [place] [address] 20658 Hepatic function 2000 panelo n 08-03-2023 Albumin BCP dye [Mass/Vol] 4.1 g/dL Normal 3.4-5.0 [facility] Comment on above: Performed By: #### 1 9123-9 #### OMERO KNIGHT ([id number]) [facility] ([facility]) [facility] [place] [address] ALP [Catalytic activity/Vol] 113 U/L Normal 33-136 [facility] Comment on above: Performed By: #### 1 9123-9 #### OMERO KNIGHT ([id number]) [facility] ([facility]) [address] [place] [address] 38796 ALT With P-5'-P [Catalytic activity/Vol] 12 U/L Normal 7-45 [facility] Comment on above: Result Comment: Madhavi ents treated with Sulfasalazine may generate falsely decreased results for ALT. Performed By: #### 1 9123-9 #### OMERO KNIGHT ([id number]) [facility] ([facility]) [address] [place] [address] 05866 AST With P-5'-P [Catalytic activity/Vol] 19 U/L Normal 9-39 [facility] Comment on above: Performed By: #### 1 9123-9 #### OMERO KNIGHT ([id number]) [facility] ([facility]) [address] [place] [address] 10524 Bilirubin [Mass/Vol] 0.5 mg/dL Normal 0.0-1.2 [facility] Comment on above: Performed By: #### 1 9123-9 #### OMERO KNIGHT ([id number]) [facility] ([facility]) [address] [place] [address] Bilirubin.direct [Mass/Vol] 0.1 mg/dL Normal 0.0-0.3 [facility] Comment on above: Performed By: #### 1 9123-9 #### OMERO KNIGHT (09506) [facility] ([facility]) [address] [place] [address] Protein [Mass/Vol] 7.1 g/dL Normal 6.4-8.2 [facility] Comment on above: Performed By: #### 1 9123-9 #### OMERO KNIGHT ([id number]) [facility] ([facility]) [address] [place], [place] [address] XR FOOT RIGHT 3+ VIEWSon XR FOOT RIGHT 3+ VIEWS Interpreted By: Conner Burk, STUDY: XR FOOT RIGHT 3+ VIEWS; ; 06/10/2023 6:08 pm INDICATION: Signs/Symptoms:TRAUMA. COMPARISON: None. ACCESSION NUMBER(S): [id number] ORDERING CLINICIAN: FLAVIO MILES FINDINGS: Three radiographs [...] Conner Burk 06/10/2023 6:36 PM Dictation workstation: [id number] [facility] XR Foot - right 3 Viewson 1. Marked soft tissu e swelling from likely hematoma overlies the dorsum of the foot, along the metatarsals, without evidence of displaced fracture, traumatic malalignment, or radiopaque foreign body. 2. Degenerative changes of the right foot with joint space narrowing and osteophytosis. MACRO: None Signed by: Conner Burk 06/10/2023 6:36 PM Dictation workstation: [id number] [facility] Interpreted By: Conner Burk, STUDY: XR FOOT RIGHT 3+ VIEWS; ; 06/10/2023 6:08 pm INDICATION: Signs/Symptoms:TRAUMA. COMPARISON: None. ACCESSION NUMBER(S): [id number] ORDERING CLINICIAN: FLAVIO MILES FINDINGS: Three radiographs of the right foot are provided for interpretation. Marked soft tissue swelling from the likely hematoma overlies the dorsum of the foot, without evidence of displaced fracture or traumatic malalignment. No radiopaque foreign body is identified. Degenerative changes are present in the forefoot, hindfoot and ankle with joint space narrowing and osteophytosis. [facility] eHlena Burk v, MD - 06/10/2023 Interpreted By: Conner Burk, STUDY: XR FOOT RIGHT 3+ VIEWS; ; 06/10/2023 6:08 pm INDICATION: Signs/Symptoms:TRAUMA. COMPARISON: None. ACCESSION NUMBER(S): [id number] ORDERING CLINICIAN: FLAVIO MILES FINDINGS: Three radiographs [...] Conner Burk 06/10/2023 6:36 PM Dictation workstation: [id number] [facility] Work Phone: Radiology Study observation (narrative) [facility] Work Phone: XR Foot - right 3 ViewsOrder ed By: Conner Burk on 06-10-2023 [facility] Work Phone: ALKALINE PHOSPHATASE, ISOENZ YMESon 05-21-2023 ALP [Catalytic activity/Vol] 158 U/L High 40-120 [facility] Comment on above: Performed By: #### 1 9123-9 #### OMERO KNIGHT ([id number]) [facility] ([facility]) [address] [place] [address] 91179 ALP Bone [Catalytic activity/Vol] 60 U/L High 0-55 [facility] Comment on above: Performed By: #### 1 9123-9 #### OMERO KNIGHT ([id number]) [facility] ([facility]) [facility] [place] [address] ALP Liver [Catalytic activity/Vol] 98 U/L High 0-94 [facility] Comment on above: Result Comment: INTE RPRETIVE INFORMATION: Alk-Phosphatase Liver Calc Bone Specific Alkaline Phosphatase (7201448) and 5'-nucleotidase (5073050) may be useful in identifying disorders of bone and liver, respectively. Performed By: #### 1 9123-9 #### OMERO KNIGHT (34990) [facility] ([facility]) [address] [place] [address] 80063 ALP Other [Catalytic activity/Vol] 0 U/L Normal [facility] Comment on above: Result Comment: Perf ormed By: [facility] [address] [place] [address]16[address] Bookmaker Map: Shayan Licona MD, PhD CLIA Number: [id number] Performed By: #### 1 9123-9 #### OMERO KNIGHT ([id number]) [facility] ([facility]) [address] [place] [address] CBC panel Auto (Bld)on 05-21 Erythrocyte distribution width (RBC) [Ratio] 20.9 % High 11.5-14.5 [facility] Comment on above: Performed By: #### 5 8410-2 #### OMERO KNIGHT ([id number]) [facility] ([facility]) [address] [place] [address] Hematocrit (Bld) [Volume fraction] 36.6 % Normal 36.0-46.0 [facility] Comment on above: Performed By: #### 5 8410-2 #### OMERO KNIGHT ([id number]) [facility] ([facility]) [address] [place], [place] [address] Hemoglobin (Bld) [Mass/Vol] 11.0 g/dL Low 12.0-16.0 [facility] Comment on above: Performed By: #### 5 8410-2 #### OMERO KNIGHT (17459) [facility] ([facility]) [address] [place] [address] 71171 MCH (RBC) [Entitic mass] 24.9 pg Low 26.0-34.0 [facility] Comment on above: Performed By: #### 5 8410-2 #### OMERO KNIGHT (77472) [facility] ([facility]) [address] [place] [address] 10547 MCHC (RBC) [Mass/Vol] 30.1 g/dL Low 32.0-36.0 [facility] Comment on above: Performed By: #### 5 8410-2 #### OMERO KNIGHT ([id number]) [facility] ([facility]) [address] [place] [address] 03456 MCV (RBC) [Entitic vol] 83 fL Normal 80-100 [facility] Comment on above: Performed By: #### 5 8410-2 #### OMERO KNIGHT ([id number]) [facility] ([facility]) [address] [place] [address] 86838 Nucleated RBC/100 WBC (Bld) [Ratio] 0.0 /100 WBCs Normal 0.0-0.0 [facility] Comment on above: Performed By: #### 5 8410-2 #### OMERO KNIGHT ([id number]) [facility] ([facility]) [address] [place] [address] 90657 Platelets (Bld) [#/Vol] 261 x10*3/uL Normal 150-450 [facility] Comment on above: Performed By: #### 5 8410-2 #### OMERO KNIGHT ([id number]) [facility] ([facility]) [address] [place] [address] 16625 RBC (Bld) [#/Vol] 4.41 x10*6/uL Normal 4.00-5.20 [facility] Comment on above: Performed By: #### 5 8410-2 #### OMERO KNIGHT ([id number]) [facility] ([facility]) [address] [place] [address] 87281 WBC (Bld) [#/Vol] 10.2 x10*3/uL Normal 4.4-11.3 [facility] Comment on above: Performed By: #### 5 8410-2 #### OMERO KNIGHT ([id number]) [facility] ([facility]) [address] [place] [address] 32870 Calcidiolon 05-21-2023 25-hydroxyvitamin D3 [Mass/Vol] 21 ng/mL Low 30-100 [facility] Comment on above: Order Comment: Defic iency: < 20 ng/mlInsufficiency: 20-29 ng/mlSufficiency: 30-100 ng/mlThis assay accurately quantifies the sum of Vitamin D3, 25-Hydroxy and Vitamin D2,25-Hydroxy. Performed By: #### 1 9123-9 #### OMERO KNIGHT ([id number]) [facility] ([facility]) [address] [place] [address] 42061 Comprehensive metabolic 2000 panelon 05-21-2023 Albumin BCP dye [Mass/Vol] 3.6 g/dL Normal 3.4-5.0 [facility] Comment on above: Performed By: #### 2 4323-8 #### OMERO KNIGHT (91933) [facility] ([facility]) [address] [place] [address] 77131 ALP [Catalytic activity/Vol] 140 U/L High 33-136 [facility] Comment on above: Performed By: #### 2 4323-8 #### OMERO KNIGHT ([id number]) [facility] ([facility]) [address] [place] [address] 45679 ALT With P-5'-P [Catalytic activity/Vol] 8 U/L Normal 7-45 [facility] Comment on above: Result Comment: Madhavi ents treated with Sulfasalazine may generate falsely decreased results for ALT. Performed By: #### 2 4323-8 #### OMERO KNIGHT ([id number]) [facility] ([facility]) [address] [place] [address] 59232 Anion gap [Moles/Vol] 12 mmol/L Normal 10-20 [facility] Comment on above: Performed By: #### 2 4323-8 #### OMERO KNIGHT (38231) [facility] ([facility]) [address] [place] [address] 88162 AST With P-5'-P [Catalytic activity/Vol] 16 U/L Normal 9-39 [facility] Comment on above: Performed By: #### 2 4323-8 #### OMERO KNIGHT ([id number]) [facility] ([facility]) [address] [place] [address] 71350 Bilirubin [Mass/Vol] 0.3 mg/dL Normal 0.0-1.2 [facility] Comment on above: Performed By: #### 2 4323-8 #### OMERO KNIGHT ([id number]) [facility] ([facility]) [facility] [place] [address] Calcium [Mass/Vol] 9.2 mg/dL Normal 8.6-10.3 [facility] Comment on above: Performed By: #### 2 4323-8 #### OMERO KNIGHT (76924) [facility] ([facility]) [address] [place] [address] 49320 Chloride [Moles/Vol] 100 mmol/L Normal 98-107 [facility] Comment on above: Performed By: #### 2 432-8 #### OMERO KNIGHT (25943) [facility] ([facility]) [address] [place] [address] 65968 CO2 [Moles/Vol] 30 mmol/L Normal 21-32 [facility] Comment on above: Performed By: #### 2 432-8 #### OMERO KNIGHT (85132) [facility] ([facility]) [address] [place] [address] 43811 Creatinine [Mass/Vol] 1.00 mg/dL Normal 0.50-1.05 [facility] Comment on above: Performed By: #### 2 4323-8 #### OMERO KNIGHT (12992) [facility] ([facility]) [address] [place] [address] 04570 Glomerular filtration rate/1.73 sq M.predicted 59 mL/min/1.73m*2 Low >60 [facility] Comment on above: Result Comment: Calc ulations of estimated GFR are performed using the 2020 CKD-EPI Study Refit equation without the race variable for the IDMS-Traceable creatinine methods. https://jasn.asnjournals.org/content/early/ASN.82485 00609 Performed By: #### 2 4323-8 #### OMERO KNIGHT ([id number]) [facility] ([facility]) [address] [place] [address] 34619 Glucose [Mass/Vol] 119 mg/dL High 74-99 [facility] Comment on above: Performed By: #### 2 4323-8 #### OMERO KNIGHT (40864) [facility] ([facility]) [address] [place] [address] 76626 Potassium [Moles/Vol] 4.4 mmol/L Normal 3.5-5.3 [facility] Comment on above: Performed By: #### 2 4323-8 #### OMERO KNIGHT ([id number]) [facility] ([facility]) [address] [place] [address] 04428 Protein [Mass/Vol] 6.4 g/dL Normal 6.4-8.2 [facility] Comment on above: Performed By: #### 2 4323-8 #### OMERO KNIGHT ([id number]) [facility] ([facility]) [address] [place] [address] 65416 Sodium [Moles/Vol] 138 mmol/L Normal 136-145 [facility] Comment on above: Performed By: #### 2 4323-8 #### OMERO KNIGHT (54712) [facility] ([facility]) [address] [place] [address] 28424 Urea nitrogen [Mass/Vol] 15 mg/dL Normal 6-23 [facility] Comment on above: Performed By: #### 2 4323-8 #### OMERO KNIGHT (39370) [facility] ([facility]) [address] [place] [address] 24215 Ferritinon 05-21-2023 Ferritin [Mass/Vol] 34 ng/mL Normal 8-150 [facility] Comment on above: Performed By: #### 2 276-4 #### OMERO KNIGHT (63700) [facility] ([facility]) [address] [place] [address] 75768 Iron and Iron binding capaci ty panelon 05-21-2023 Iron [Mass/Vol] 97 ug/dL Normal 35-150 [facility] Comment on above: Performed By: #### 5 0190-8 #### OMERO KNIGHT ([id number]) [facility] ([facility]) [address] [place] [address] 85414 Iron binding capacity [Mass/Vol] 346 ug/dL Normal 240-445 [facility] Comment on above: Performed By: #### 5 0190-8 #### OMERO KNIGHT (39259) [facility] ([facility]) [address] [place] [address] 48667 Iron binding capacity.unsaturated [Mass/Vol] 249 ug/dL Normal 110-370 [facility] Comment on above: Performed By: #### 5 0190-8 #### OMERO KNIGHT (90697) [facility] ([facility]) [address] [place] [address] 07747 Iron saturation [Mass fraction] 28 % Normal 25-45 [facility] Comment on above: Performed By: #### 5 0190-8 #### OMERO KNIGHT (10883) [facility] ([facility]) [address] [place], [place] [address] CBC panel Auto (Bld)on 03-06 Erythrocyte distribution width (RBC) [Ratio] 15.1 % High 11.5-14.5 [facility] Comment on above: Performed By: #### 5 8410-2 #### OMERO KNIGHT ([id number]) [facility] ([facility]) [address] [place], [place] [address] Hematocrit (Bld) [Volume fraction] 32.6 % Low 36.0-46.0 [facility] Comment on above: Performed By: #### 5 8410-2 #### OMERO KNIGHT (73664) [facility] ([facility]) [address] [place] [address] 17564 Hemoglobin (Bld) [Mass/Vol] 9.3 g/dL Low 12.0-16.0 [facility] Comment on above: Performed By: #### 5 8410-2 #### OMERO KNIGHT (07745) [facility] ([facility]) [address] [place] [address] 64676 MCH (RBC) [Entitic mass] 22.0 pg Low 26.0-34.0 [facility] Comment on above: Performed By: #### 5 8410-2 #### OMERO KNIGHT (40143) [facility] ([facility]) [address] [place] [address] 96898 MCHC (RBC) [Mass/Vol] 28.5 g/dL Low 32.0-36.0 [facility] Comment on above: Performed By: #### 5 8410-2 #### OMERO KNIGHT (04071) [facility] ([facility]) [address] [place] [address] 99290 MCV (RBC) [Entitic vol] 77 fL Low 80-100 [facility] Comment on above: Performed By: #### 5 8410-2 #### OMERO KNIGHT (46941) [facility] ([facility]) [address] [place] [address] 67214 Nucleated RBC/100 WBC (Bld) [Ratio] 0.0 /100 WBCs Normal 0.0-0.0 [facility] Comment on above: Performed By: #### 5 8410-2 #### OMERO KNIGHT (46806) [facility] ([facility]) [address] [place] [address] 87039 Platelets (Bld) [#/Vol] 310 x10*3/uL Normal 150-450 [facility] Comment on above: Performed By: #### 5 8410-2 #### OMERO KNIGHT (43209) [facility] ([facility]) [address] [place] [address] 81195 RBC (Bld) [#/Vol] 4.22 x10*6/uL Normal 4.00-5.20 [facility] Comment on above: Performed By: #### 5 8410-2 #### OMERO KNIGHT ([id number]) [facility] ([facility]) [address] [place] [address] 36974 WBC (Bld) [#/Vol] 12.2 x10*3/uL High 4.4-11.3 [facility] Comment on above: Performed By: #### 5 8410-2 #### OMERO KNIGHT ([id number]) [facility] ([facility]) [address] [place], [place] [address] Cobalaminson 03-06-2023 Cobalamin (Vitamin B12) [Mass/Vol] 352 pg/mL Normal 211-911 [facility] Comment on above: Performed By: #### 2 132-9 #### OMERO KNIGHT (11208) [facility] ([facility]) [address] [place] [address] Comprehensive metabolic 2000 panelon 03-06-2023 Albumin BCP dye [Mass/Vol] 3.8 g/dL Normal 3.4-5.0 [facility] Comment on above: Performed By: #### 2 4323-8 #### OMERO KNIGHT ([id number]) [facility] ([facility]) [address] [place] [address] 42643 ALP [Catalytic activity/Vol] 141 U/L High 33-136 [facility] Comment on above: Performed By: #### 2 4323-8 #### OMERO KNIGHT ([id number]) [facility] ([facility]) [address] [place] [address] 12035 ALT With P-5'-P [Catalytic activity/Vol] 9 U/L Normal 7-45 [facility] Comment on above: Result Comment: Madhavi ents treated with Sulfasalazine may generate falsely decreased results for ALT. Performed By: #### 2 4323-8 #### OMERO KNIGHT (49029) [facility] ([facility]) [address] [place] [address] Anion gap [Moles/Vol] 12 mmol/L Normal 10-20 [facility] Comment on above: Performed By: #### 2 4323-8 #### OMERO KNIGHT ([id number]) [facility] ([facility]) [facility] [place] [address] AST With P-5'-P [Catalytic activity/Vol] 16 U/L Normal 9-39 [facility] Comment on above: Performed By: #### 2 4323-8 #### OMERO KNIGHT (08262) [facility] ([facility]) [address] [place] [address] 64280 Bilirubin [Mass/Vol] 0.3 mg/dL Normal 0.0-1.2 [facility] Comment on above: Performed By: #### 2 4323-8 #### OMERO KNIGHT (86137) [facility] ([facility]) [address] [place] [address] 51097 Calcium [Mass/Vol] 9.1 mg/dL Normal 8.6-10.3 [facility] Comment on above: Performed By: #### 2 4323-8 #### OMERO KNIGHT (61490) [facility] ([facility]) [address] [place] [address] 66853 Chloride [Moles/Vol] 103 mmol/L Normal 98-107 [facility] Comment on above: Performed By: #### 2 4323-8 #### OMERO KNIGHT (40415) [facility] ([facility]) [address] [place] [address] 04113 CO2 [Moles/Vol] 28 mmol/L Normal 21-32 [facility] Comment on above: Performed By: #### 2 4323-8 #### OMERO KNIGHT (58422) [facility] ([facility]) [address] [place] [address] 86542 Creatinine [Mass/Vol] 0.83 mg/dL Normal 0.50-1.05 [facility] Comment on above: Performed By: #### 2 4323-8 #### OMERO KNIGHT (56562) [facility] ([facility]) [address] [place] [address] 38129 GFR/1.73 sq M.predicted MDRD (S/P/Bld) [Vol rate/Area] 74 mL/min/1.73m*2 Normal >60 [facility] Comment on above: Result Comment: Calc ulations of estimated GFR are performed using the 2020 CKD-EPI Study Refit equation without the race variable for the IDMS-Traceable creatinine methods. https://jasn.asnjournals.org/content//ASN.54150 62494 Performed By: #### 2 4323-8 #### OMERO KNIGHT (18376) [facility] ([facility]) [address] [place] [address] 76638 Glucose [Mass/Vol] 143 mg/dL High 74-99 [facility] Comment on above: Performed By: #### 2 4323-8 #### OMERO KNIGHT (47292) [facility] ([facility]) [address] [place] [address] 94268 Potassium [Moles/Vol] 4.3 mmol/L Normal 3.5-5.3 [facility] Comment on above: Performed By: #### 2 4323-8 #### OMERO KNIGHT (50413) [facility] ([facility]) [address] [place] [address] 32011 Protein [Mass/Vol] 6.9 g/dL Normal 6.4-8.2 [facility] Comment on above: Performed By: #### 2 4323-8 #### OMERO KNIGHT (38059) [facility] ([facility]) [address] [place] [address] 09972 Sodium [Moles/Vol] 139 mmol/L Normal 136-145 [facility] Comment on above: Performed By: #### 2 4323-8 #### OMERO KNIGHT (52038) [facility] ([facility]) [address] [place] [address] 65842 Urea nitrogen [Mass/Vol] 22 mg/dL Normal 6-23 [facility] Comment on above: Performed By: #### 2 4323-8 #### OMERO KNIGHT (92973) [facility] ([facility]) [address] [place] [address] 93110 HbA1c (Bld) [Mass fraction]o n 03-06-2023 Average glucose Estimated from glycated hemoglobin (Bld) [Mass/Vol] 160 mg/dL Normal Not Established [facility] Comment on above: Order Comment: Diagn osis of Diabetes-Adults Non-Diabetic: < or = 5.6% Increased risk for developing diabetes: 5.7-6.4% Diagnostic of diabetes: > or = 6.5% Monitoring of Diabetes Age (y)....................... Therapeutic Goal (%) Adults: >18.........................<7.0 Pediatrics: 13-18...................<7.5 Pediatrics: 7-12....................<8.0 Pediatrics: 0-6..................... 7.5-8.5 [place] [employer]. Diabetes Care 33(S1)Apr 2009 Performed By: #### 4 548-4 #### OMERO KNIGHT (55273) [facility] ([facility]) [address] [place], [place] [address] Hemoglobin A1c/Hemoglobin.to zac 03-06-2023 HbA1c (Bld) [Mass fraction] 7.2 % High see below [facility] Comment on above: Order Comment: Diagn osis of Diabetes-Adults Non-Diabetic: < or = 5.6% Increased risk for developing diabetes: 5.7-6.4% Diagnostic of diabetes: > or = 6.5% Monitoring of Diabetes Age (y)....................... Therapeutic Goal (%) Adults: >18.........................<7.0 Pediatrics: 13-18...................<7.5 Pediatrics: 7-12....................<8.0 Pediatrics: 0-6..................... 7.5-8.5 [place] [employer]. Diabetes Care 33(S1), Apr 2009 Performed By: #### 4 548-4 #### OMERO KNIGHT (05708) [facility] ([facility]) [address] [place] [address] 71549 Lipid 1996 panelon 11-28-202 3 Cholesterol [Mass/Vol] 125 mg/dL Normal 0-199 [facility] Comment on above: Result Comment: [...] By: #### 2 4331-1 #### OMERO KNIGHT (38646) [facility] ([facility]) [address] [place] [address] 84516 Cholesterol in HDL [Mass/Vol] 55.0 mg/dL Normal [facility] Comment on above: Result Comment: Age Very Low Low Normal High 0-19 Y < 35 < 40 40-45 ---- 20-24 Y ---- < 40 >45 ---- >24 Y ---- < 40 40-60 >60 Performed By: #### 2 4331-1 #### OMERO KNIGHT (54109) [facility] ([facility]) [address] [place] [address] 78324 Cholesterol in LDL [Mass/Vol] 48 mg/dL Normal <=99 [facility] Comment on above: Result Comment: Near Borderline AGE Desirable Optimal High High Very High 0-19 Y 0 - 109 --- 110-129 >/= 130 ---- 20-24 Y 0 - 119 --- 120-159 >/= 160 ---- >24 Y 0 - 99 100-129 130-159 160-189 >/=190 Performed By: #### 2 4331-1 #### OMERO KNIGHT (75176) [facility] ([facility]) [address] [place] [address] 90195 Cholesterol in VLDL [Mass/Vol] 22 mg/dL Normal 0-40 [facility] Comment on above: Performed By: #### 2 4331-1 #### OMERO KNIGHT (16001) [facility] ([facility]) [address] [place] [address] 84517 CHOLESTEROL/HDL RATIO 2.3 Normal [facility] Comment on above: Result Comment: Ref Values Desirable < 3.4 High Risk > 5.0 Performed By: #### 2 4331-1 #### OMERO KNIGHT (33055) [facility] ([facility]) [address] [place] [address] 60766 NON HDL CHOLESTEROL 70 mg/dL Normal 0-149 [facility] Comment on above: Result Comment: Age Desirable Borderline High High Very High 0-19 Y 0 - 119 120 - 144 >/= 145 >/= 160 20-24 Y 0 - 149 150 - 189 >/= 190 ---- >24 Y 30 mg/dL above LDL Cholesterol goal Performed By: #### 2 4331-1 #### OMERO KNIGHT (82331) [facility] ([facility]) [address] [place] [address] 01128 Triglyceride [Mass/Vol] 111 mg/dL Normal 0-149 [facility] Comment on above: Result Comment: [...] By: #### 2 4331-1 #### OMERO KNIGHT (95035) [facility] ([facility]) [address] [place] [address] 42637 Magnesiumon 03-06-2023 Magnesium [Mass/Vol] 1.30 mg/dL Low 1.60-2.40 [facility] Comment on above: Performed By: #### 1 9123-9 #### JAMIL EUGENE (55099) [facility] ([facility]) [address] [place] [address] CORONAVIRUS 2019 BY PCRon SARS-CoV-2 (COVID-19) RNA SEFERINO+probe Ql (Unsp spec) Not detected Normal Not Detected [facility] Comment on above: Result Comment: . This test has received FDA Emergency Use Authorization (EUA) and has been verified by [facility]. This test is only authorized for the duration of time that circumstances exist to justify the authorization of the emergency use of in vitro diagnostic tests for the detection of SARS-CoV-2 virus and/or diagnosis of COVID-19 infection under section 564(b)(1) of the Act, 21 U.S.C. 360bbb-3(b)(1), unless the authorization is terminated or revoked sooner. [facility] is certified under CLIA-88 as qualified to perform high complexity testing. Testing is performed in the [facility] laboratory located at [address] [place] [address]. SARS-CoV-2/Flu/RSV Multiplex Test: Fact sheet for providers: https://www.fda.gov/media/971399/download Fact sheet for patients: https://www.fda.gov/media/158616/download Performed By: #### C OV19 #### [place] [address] Lab Specimen Source Nasal, Nasopharyngeal Normal [facility] Comment on above: Performed By: #### C OV19 #### [place] [address] Covid 19 Resultson SARS-CoV-2 (COVID-19) RNA SEFERINO+probe [...] by the [facility] to see if any of your [...] or Naproxen (Aleve) can also be used. Wchk-alr-phvxprq cough and cold medicines can be used according to the instructions on the package. Some ijge-bje-gftbkco medicines also contain acetaminophen. Make sure you [...] water are not available, use alcohol-based hand school physical therapist. Avoid touching your eyes, nose, and mouth [...] 24 rai (more content not included)... Normal [facility] Daily Progress Note-General Internal Medicineon 09-15-2022 Daily Progress Note-General Internal Medicine Service: General Internal Medicine Subjective Data: DARYN SHAH is a 76 year old Female who is Hospital Day # 8. Additional Information: Patient seen and examined at bedside. Patient doing well. No complaints today. Getting ready to go to rehab today. Objective Data: Objective Information: T PRBPMAPSpO2 [id number]/[id number]% Date/Time09/15 8: 8: 8: 8: 8:00 Range(36.5C - 36.8C ) (78 - 87 ) (16 - 16 ) (94 - 141 )/ (59 - 82 ) (94% - 97% ) Pain reported at 09/15 8:45: 0 = None ---- Intake and Output ----- Mn/Dy/Year TimeIntakeOutputNet Sep 14, 2022 10:00 [id number] Sep 14, 2022 2:00 [id number] The Intake and Output Totals for the last 24 hours are: IntakeOutputNet [id number] Physical Exam by System: Constitutional: Well developed, [...] Spontaneous/Phasic Peroneal Yes None PTV Yes None 16073 Don Rico MD Final [facility] Venous Duplex Ultrasound for [...] cm (2.7-4 (more content not included)... Normal [facility] GLUCOSE-POCTon 09-15-2022 Glucose [Mass/Vol] 141 mg/dL High 74 - 99 [facility] Comment on above: Performed By: #### B MP #### [address] [address] Glucose [Mass/Vol] 165 mg/dL High 74 - 99 [facility] Comment on above: Performed By: #### G ROLLY #### [address] [address] BASIC METABOLIC PANELon 06-0 Anion gap [Moles/Vol] 10 mmol/L Normal 10 - 20 [facility] Comment on above: Performed By: #### B MP ####[address] [address] Calcium [Mass/Vol] 8.4 mg/dL Low 8.6 - 10.3 [facility] Comment on above: Performed By: #### B MP ####[address] [address] Chloride [Moles/Vol] 96 mmol/L Low 98 - 107 [facility] Comment on above: Performed By: #### B MP ####[address] [address] Creatinine [Mass/Vol] 0.96 mg/dL Normal 0.50 - 1.05 [facility] Comment on above: Performed By: #### B MP ####[address] [address] GFR/1.73 sq M.predicted among non-blacks MDRD (S/P/Bld) [Vol rate/Area] 62 mL/min/{1.73_m2} Normal >90 [facility] Comment on above: Result Comment: CALC ULATIONS OF ESTIMATED GFR ARE PERFORMED USING THE 2020 CKD-EPI STUDY REFIT EQUATION WITHOUT THE RACE VARIABLE FOR THE IDMS-TRACEABLE CREATININE METHODS. https://jasn.asnjournals.org/content///ASN.18369 58010 Performed By: #### B MP ####[address] [address] Glucose [Mass/Vol] 153 mg/dL High 74 - 99 [facility] Comment on above: Performed By: #### B MP ####[address] [address] HCO3 (Bld) [Moles/Vol] 31 mmol/L Normal 21 - 32 [facility] Comment on above: Performed By: #### B MP ####[address] [address] Potassium [Moles/Vol] 3.6 mmol/L Normal 3.5 - 5.3 [facility] Comment on above: Performed By: #### B MP ####[address] [address] Sodium [Moles/Vol] 133 mmol/L Low 136 - 145 [facility] Comment on above: Performed By: #### B MP ####[address] [address] Urea nitrogen [Mass/Vol] 13 mg/dL Normal 6 - 23 [facility] Comment on above: Performed By: #### B MP ####[address] [address] CBCon 09-14-2022 Erythrocyte distribution width (RBC) [Ratio] 17.1 % High 11.5 - 14.5 [facility] Comment on above: Performed By: #### B MP #### [address] [address] Hematocrit (Bld) [Volume fraction] 28.4 % Low 36.0 - 46.0 [facility] Comment on above: Performed By: #### B MP #### [address] [address] Hemoglobin (Bld) [Mass/Vol] 8.1 g/dL Low 12.0 - 16.0 [facility] Comment on above: Performed By: #### B MP #### [address] [address] MCHC (RBC) [Mass/Vol] 28.5 g/dL Low 32.0 - 36.0 [facility] Comment on above: Performed By: #### B MP #### [address] [address] MCV (RBC) [Entitic vol] 71 fL Low 80 - 100 [facility] Comment on above: Performed By: #### B MP #### [address] [address] Platelets (Bld) [#/Vol] 310 10*3/uL Normal 150 - 450 [facility] Comment on above: Performed By: #### B MP #### [address] [address] RBC 4.01 x10E12/L Normal 4.00 - 5.20 [facility] Comment on above: Performed By: #### B MP #### [address] [address] [place] [address] WBC (Bld) [#/Vol] 11.6 10*3/uL High 4.4 - 11.3 [facility] Comment on above: Performed By: #### B #### [address] [place] [address] Consult - Psychiatryon 09-14 Consult - Psychiatry [...] Tona. Also, patient's Shad is now at [facility] for medical admission. Patient describes how she stopped walking 3 years ago when she shut down emotionally after Jojo and Tona left. States she can stand, but due to balance issues, is fearful of falling. Describes system wherein Srinivas and Shad assist her with wheelchair, bathing, toileting, etc. 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 Social History: Lives in [...] Suicidal Ideas Objective: Objective Information: T PRBPMAPSpO2 [id number]/6596% Date/Time09/14 7: 7: 7: 7: 7:53 Range(36.3C [...] Times a (more content not included)... Normal [facility] Discharge [id number] 023 Discharge Profile2 Discharge Orders: Anticipated Discharge Date: Anticipated Discharge [id number] Anticipated Discharge Time14:48 Problem List: Additional Dx: [...] shower. Diet: Dietlow cholesterol, low fat Fluid Hawtyowwglq1346 to 2000 ml Hospital Course (Home Care/Gold [...] individual's condition. Attending ProviderAngelique Clarke Attending Provider [id number] Therapy Orders: Occupational Therapy OrdersEval and Treat ([facility]) Physical Therapy OrdersEval and Treat ([facility]) Speech Therapy OrdersEval and Treat ([facility]) Provider Follow Up: Physician To Follow at Skilled/RehabAttending Physician at Skilled/Rehab Provider FINAL REVIEW of Orders: Final Review: Final Review of Medication Reconciliation and Orders Completedby Physician Reviewing ProviderAngelique Clarke MD at 15-Sep-2022 12:31:20 Appointments: Follow-Up Appointment 01: Physician/Dept/ServicePr [facility] Care Physician/Facility Physician Reason for Referralpost hospital stay Call to Schedule in1 week Follow-Up Appointment 02: Physician/Dept/ServiceDr Rupal Pickard Reason for ReferralPsychotherapy/Ps ychiatry Call to Schedule inAs needed. O (more content not included)... Normal [facility] GLUCOSE-POCTon 09-14-2022 Glucose [Mass/Vol] 172 mg/dL High 74 - 99 [facility] Comment on above: Performed By: #### C OV19 #### [address] [address] Glucose [Mass/Vol] 204 mg/dL High 74 - 99 [facility] Comment on above: Performed By: #### C OV19 #### [address] [address] Glucose [Mass/Vol] 166 mg/dL High 74 - 99 [facility] Comment on above: Performed By: #### L ACT #### [address] [place] [address] Glucose [Mass/Vol] 144 mg/dL High 74 - 99 [facility] Comment on above: Performed By: #### G ROLLY #### [address] [address] Nutrition Therapy-Assessment - Physician consult for assessmon 09-14-2022 Nutrition Therapy-Assessment - Physician consult for assessm Assessment Subjective/Objective: Note Type: Assessment Physician consult for assessment and recommendations Note Authored by: Registered Dietitian [employer] Pager Number: Rosy Nutrition Note: The patient [...] ----- Mn/Dy/Year TimeIntakeOutputNet Sep 14, 2022 6:00 [id number] Sep 13, 2022 10:00 [id number] Sep 13, 2022 2:00 [id number] The Intake and Output Totals for the last 24 hours are: IntakeOutputNet [id number] Height/Weight: Height in cm: 167.5 centimeter(s) Weight [...] 13-18 <7.5 7-12 <8.0 0- 6 7.5-8.5 [place] [employer]. Diabetes Care 33(S1), Apr 2009. 09-Sep-2022 04:54, Hemoglobin A1C, Level Hemoglobin A1C, Level7.6 Diagnosis of Diabetes-Adults Non-Diabetic: < or = 5.6% Increased risk for developing diabetes: 5.7-6.4% Diagnostic of diabetes: > or = 6.5% . Monitoring of Diabetes Age (y) Therapeutic Goal (%) Adults: >18 <7.0 Pediatrics: 13-18 <7.5 7-12 <8.0 0- 6 7.5-8.5 [place] [employer]. Diabetes Care 33(S1), Apr 2009. [...] ml/day 90gram Carb/meal, 60gram Carb evening snack (9511-0570 calories), 10-Sep-2022 (more content not included)... [facility] Order Reconciliationon 09-14 Order Reconciliation Page 1 [...] 3.375 gram/Iso-osmoti (more content not included)... Normal [facility] Rehab Vqsi-hj-sxmohxbxnpi Rehab Dnjv-hh-tbqwsndky Rehab: Info: Disciplinephysical recreation therapy director Mode of Treatmentco-treatment; physical therapy; occupational therapy Time IN12:56 Time OUT13:30 Total Treatment [id number] Patient in ... at end of sessionbed, [...] to supine Supine to Sit to Supine Keyes (Bed Mobility)moderate assist (50% patient effort); 2 [...] greater ease/safety. MB Electronic Signatures: Laurent Mckeon (TRAVEL REGISTERED NURSE PACU) (Signed 14-Sep-2022 13:50) Authored: Info, Vision/Cognition, Mobility/Tone, Motor, Sensory, Outcomes Tools, Short Term Goals, Outcome Summary James Mendez (PT) (Signed 19-Sep-2022 08:46) Co-Signer: Info, Vision/Cognition, Mobility/Tone, Motor, Sensory, Outcomes Tools, Short Term Goals, Outcome Summary Last Updated: 19-Sep-2022 08:46 by James Mendez (PT) [facility] Rehab Kgdm-yk-ykflpllft Rehab: Info: Disciplineoccupational recreation therapy director Mode of Treatmentco-treatment; occupational therapy; physical therapy Time IN12:54 Time OUT13:32 Total Treatment [id number] Total Minutes CommentFull 38 min co-tx with [...] to sit; sit to supine Roll Left Keyes (Bed Mobility)independent Dzunsg-uv-Bgk Keyes (Bed Mobility)independent Yng-iz-Faoquq Keyes (Bed Mobility)minimum assist (75% patient effort); Min A to lift leg onto bed Assistive Device (Bed Mobility)bed rails Transfer Assessment/Interventions sit to stand transfer; stand to sit transfer Sit-Stand Keyes (Transfers)Sit to stand x 3 trials standing 10, 15 then 20 seconds. Mod>max A x 2 with/ verbal cues to stand tall. Each sit to stand improving; maximum assist (25% patient effort); 2 person assist Sit-Stand Assistive Device (Transfers)gait belt; walker, front-wheeled Stand-Sit Keyes (Transfers)moderate assist (50% patient effort) Stand-Sit Assistive Device (Transfers)gait belt; walker, front-wheeled Impairments Impacting Function (Mobility)balance; strength; range of motion ADL: BADL Assessment/Interventionl ower body dressing Keyes Level (Lower Body Dressing)don; socks; modified independence [...] teethnone Eating Mealsnone AM-PAC (OT) Total Score17 Correction Goals: Transfer: Established Transfer: Transfer Type Goaltoilet Transfer: Keyes Level Goalminimum assist (75% patients effort) Transfer: [...] Lower Body Dressing: Established Lower Body Dressing: Keyes Level Goalindependent Lower Body Dressing: Time Frame for Goal2 wks Lower Body Dressing: Goal Outcomegoal ongoing; Patient educated with sock aide this date, able to complete with 1x demo Toileting: Established Toileting: Keyes Level Goalminimum assist (75% patients effort) Toileting: [...] Info, Vision/Cogni (more content not included)... Normal [facility] BASIC METABOLIC PANELon 06-0 Anion gap [Moles/Vol] 12 mmol/L Normal 10 - 20 [facility] Comment on above: Performed By: #### G ROLLY #### [address] [address] Calcium [Mass/Vol] 8.5 mg/dL Low 8.6 - 10.3 [facility] Comment on above: Performed By: #### G ROLLY #### [address] [address] Chloride [Moles/Vol] 96 mmol/L Low 98 - 107 [facility] Comment on above: Performed By: #### G ROLLY #### [address] [address] Creatinine [Mass/Vol] 0.88 mg/dL Normal 0.50 - 1.05 [facility] Comment on above: Performed By: #### G ROLLY #### [address] [address] GFR/1.73 sq M.predicted among non-blacks MDRD (S/P/Bld) [Vol rate/Area] 69 mL/min/{1.73_m2} Normal >90 [facility] Comment on above: Result Comment: CALC ULATIONS OF ESTIMATED GFR ARE PERFORMED USING THE 2020 CKD-EPI STUDY REFIT EQUATION WITHOUT THE RACE VARIABLE FOR THE IDMS-TRACEABLE CREATININE METHODS. https://jasn.asnjournals.org/content/early/ASN.11834 [address] Performed By: #### G ROLLY #### [address] [address] Glucose [Mass/Vol] 146 mg/dL High 74 - 99 [facility] Comment on above: Performed By: #### G ROLLY #### [address] [address] HCO3 (Bld) [Moles/Vol] 30 mmol/L Normal 21 - 32 [facility] Comment on above: Performed By: #### G ROLLY #### [address] [address] Potassium [Moles/Vol] 3.6 mmol/L Normal 3.5 - 5.3 [facility] Comment on above: Performed By: #### G ROLLY #### [address] [address] Sodium [Moles/Vol] 134 mmol/L Low 136 - 145 [facility] Comment on above: Performed By: #### G ROLLY #### [id number] Urea nitrogen [Mass/Vol] 13 mg/dL Normal 6 - 23 [facility] Comment on above: Performed By: #### G ROLLY #### [address] [address] CBC AND DIFFERENTIALon 09-13 % AUTOMATED IMMATURE GRAN 1.0 % High 0.0 - 0.9 [facility] Comment on above: Result Comment: Martina ture Granulocyte Count (IG) includes promyelocytes, myelocytes and metamyelocytes but does not include bands. Percent differential counts (%) should be interpreted in the context of the absolute cell counts (cells/L). Performed By: #### C BCDF #### [id number] Basophils (Bld) [#/Vol] 0.06 10*3/uL Normal 0.00 - 0.10 [facility] Comment on above: Performed By: #### C BCDF #### [address] [address] Basophils/100 WBC (Bld) 0.5 % Normal 0.0 - 2.0 [facility] Comment on above: Performed By: #### C BCDF #### [id number] Eosinophils (Bld) [#/Vol] 0.50 10*3/uL High 0.00 - 0.40 [facility] Comment on above: Performed By: #### C BCDF #### [address] [address] Eosinophils/100 WBC (Bld) 4.3 % Normal 0.0 - 6.0 [facility] Comment on above: Performed By: #### C BCDF #### [address] [address] Erythrocyte distribution width (RBC) [Ratio] 17.2 % High 11.5 - 14.5 [facility] Comment on above: Performed By: #### C BCDF #### [address] [address] Hematocrit (Bld) [Volume fraction] 28.3 % Low 36.0 - 46.0 [facility] Comment on above: Performed By: #### C BCDF #### [address] [address] Hemoglobin (Bld) [Mass/Vol] 8.1 g/dL Low 12.0 - 16.0 [facility] Comment on above: Performed By: #### C BCDF #### [address] [address] Lymphocytes (Bld) [#/Vol] 2.73 10*3/uL Normal 0.80 - 3.00 [facility] Comment on above: Performed By: #### C BCDF #### [address] [address] Lymphocytes/100 WBC (Bld) 23.3 % Normal 13.0 - 44.0 [facility] Comment on above: Performed By: #### C BCDF #### [address] [address] MCHC (RBC) [Mass/Vol] 28.6 g/dL Low 32.0 - 36.0 [facility] Comment on above: Performed By: #### C BCDF #### [address] [address] MCV (RBC) [Entitic vol] 70 fL Low 80 - 100 [facility] Comment on above: Performed By: #### C BCDF #### [address] [address] Monocytes (Bld) [#/Vol] 0.91 10*3/uL High 0.05 - 0.80 [facility] Comment on above: Performed By: #### C BCDF #### [address] [address] Monocytes/100 WBC (Bld) 7.8 % Normal 2.0 - 10.0 [facility] Comment on above: Performed By: #### C BCDF #### [address] [address] Neutrophils (Bld) [#/Vol] 7.41 10*3/uL High 1.60 - 5.50 [facility] Comment on above: Result Comment: Perc ent differential counts (%) should be interpreted in the context of the absolute cell counts (cells/L). Performed By: #### C BCDF #### [address] [address] Neutrophils/100 WBC (Bld) 63.1 % Normal 40.0 - 80.0 [facility] Comment on above: Performed By: #### C BCDF #### [address] [address] Platelets (Bld) [#/Vol] 290 10*3/uL Normal 150 - 450 [facility] Comment on above: Performed By: #### C BCDF #### [address] [address] RBC 4.02 x10E12/L Normal 4.00 - 5.20 [facility] Comment on above: Performed By: #### C BCDF #### [address] [address] WBC (Bld) [#/Vol] 11.7 10*3/uL High 4.4 - 11.3 [facility] Comment on above: Performed By: #### C BCDF #### [address] [address] Daily Progress Note-General Internal Medicineon 09-13-2022 Daily [...] progress. Objective Data: Objective Information: T PRBPMAPSpO2 Value36.4194858/6698% Date/Time09/13 10: 10: 10: 10: 10:00 Range(35.9C - 36.6C ) (59 - 74 ) (18 - 20 ) (95 - 113 )/ (59 - 74 ) (95% - 98% ) Pain reported at 09/13 9:50: 0 = None ---- Intake and Output ----- Mn/Dy/Year TimeIntakeOutputNet Sep 13, 2022 2:00 [id number] Sep 13, 2022 6:00 [id number] Sep 12, 2022 10:00 [id number] The Intake and Output Totals for the last 24 hours are: IntakeOutputNet [id number] Physical Exam by System: Constitutional: Well developed, [...] Spontaneous/Phasic Peroneal Yes None PTV Yes None [id number] Don Rico MD Final [facility] Venous Duplex Ultrasound for DVT [Sep 11 2022 7:14PM] (more content not included)... Normal [facility] Glucose [Mass/Vol] 222 mg/dL High 74 - 99 [facility] Comment on above: Performed By: #### U ARFX #### [address] [address] Glucose [Mass/Vol] 160 mg/dL High 74 - 99 [facility] Comment on above: Performed By: #### L ACT #### [address] [address] Glucose [Mass/Vol] 220 mg/dL High 74 - 99 [facility] Comment on above: Performed By: #### B MP #### [address] [address] Glucose [Mass/Vol] 142 mg/dL High 74 - 99 [facility] Comment on above: Performed By: #### L ACT #### [address] [address] OT Evaluation v2-occupationa l therapyon 09-13-2022 OT Evaluation v2-occupational therapy Rehab: Info: Mode of Treatmentoccupational therapy Time IN13:29 Time OUT13:54 Total Treatment Cxtugsf57 Total Minutes Commentplus 1415 to 1437 with PT james Patient in ... at end of sessionchair Communicated with ... at end of sessionbedside nurse; sub acute care nurse; physician; Discussion with Dr. Clarke, care transitions Vera and Princess about pt potential and mental health being pt largest limitation Patient Effortgood Symptoms Noted During/After Treatmentfatigue Patient Profile Reviewedyes Onset of Illness/Injury or Date of [id number] Reason for ReferralADL safety Referring PhysicianLogtiffanie Clarke [...] Ax2 with gait belt and FWW Sit-Stand Keyes (Transfers)minimum assist (75% patient effort); 2 person assist Sit-Stand Assistive Device (Transfers)gait belt; walker, front-wheeled Stand-Sit Keyes (Transfers)minimum assist (75% patient effort); 2 person assist Stand-Sit Assistive Device (Transfers)gait belt; walker, front-wheeled Safety Issues Impacting Function (Mobility)anixety; insight into deficits/self awareness Impairments Impacting Function (Mobility)strength; endurance/activity tolerance; postural/trunk control ADL: BADL Assessment/Interventionl ower body dressing; toileting Position (Lower Body Dressing)unsupported sitting Comment (Lower Body Dressing)sitting in chair Keyes Level (Toileting)maximum assist (25% patient effort) Assistive [...] (OT Eval)5 times/wk Predicted Duration of Therapy Usljgfdgovys83 days Functional Limitations in Following Categoriesself-care; mobility/gait Outc (more content not included)... Normal [facility] Rehab Noteon 09-13-2022 Rehab Note Rehab: Info: Time IN11:31 Time OUT11:46 Total Treatment Negbyid97 Total Minutes Commentadditional time 3916-4441 by PT James Mendez for transfers and [...] floor. Unable to lift/clear right leg. Sit-Stand Keyes (Transfers)minimum assist (75% patient effort); 1 person assist Sit-Stand Assistive Device (Transfers)gait belt; walker, front-wheeled Stand-Sit Keyes (Transfers)contact guard; 1 person assist; verbal cues [...] steps with railingtotal AM-PAC (PT) Total Score12 Correction Goals: Bed Mobility: Established Bed Mobility: Keyes Level Goalmodified independent; With bed flat and HOB not elevated; can use trapeze bar Bed Mobility: Time Frame for Goal1 wk Transfer: Established Transfer: Transfer Type Tyxsjum-pm-stdbx/chair-t o-bed; asj-ay-mhtck/stand-to-si t Transfer: Keyes Level Goalmoderate assist (50% patients effort) Transfer: [...] and ease with functional transfers. Rachel Dee, [facility] CENTERMaria Luisa All clinical decision making and treatment directly supervised by Constance Draper TRAVEL REGISTERED NURSE PACU 5831 patient's plan of care updated with updated goals to include transfers and stepping. Patient agreeable to trying to get be (more content not included)... Normal [facility] BASIC METABOLIC PANELon 06-0 Anion gap [Moles/Vol] 12 mmol/L Normal 10 - 20 [facility] Comment on above: Performed By: #### B MP #### [address] [address] Calcium [Mass/Vol] 8.4 mg/dL Low 8.6 - 10.3 [facility] Comment on above: Performed By: #### B MP #### [address] [address] Chloride [Moles/Vol] 97 mmol/L Low 98 - 107 [facility] Comment on above: Performed By: #### B MP #### [address] [address] Creatinine [Mass/Vol] 0.88 mg/dL Normal 0.50 - 1.05 [facility] Comment on above: Performed By: #### B MP #### [address] [address] GFR/1.73 sq M.predicted among non-blacks MDRD (S/P/Bld) [Vol rate/Area] 69 mL/min/{1.73_m2} Normal >90 [facility] Comment on above: Result Comment: CALC ULATIONS OF ESTIMATED GFR ARE PERFORMED USING THE 2020 CKD-EPI STUDY REFIT EQUATION WITHOUT THE RACE VARIABLE FOR THE IDMS-TRACEABLE CREATININE METHODS. https://jasn.asnjournals.org/content//ASN.10520 [address] Performed By: #### B MP #### [address] [address] Glucose [Mass/Vol] 152 mg/dL High 74 - 99 [facility] Comment on above: Performed By: #### B MP #### [address] [address] HCO3 (Bld) [Moles/Vol] 29 mmol/L Normal 21 - 32 [facility] Comment on above: Performed By: #### B MP #### [address] [address] Potassium [Moles/Vol] 3.5 mmol/L Normal 3.5 - 5.3 [facility] Comment on above: Performed By: #### B MP #### [address] [address] Sodium [Moles/Vol] 134 mmol/L Low 136 - 145 [facility] Comment on above: Performed By: #### B MP #### [address] [address] Urea nitrogen [Mass/Vol] 13 mg/dL Normal 6 - 23 [facility] Comment on above: Performed By: #### B MP #### [address] [address] CBC AND DIFFERENTIALon 09-12 % AUTOMATED IMMATURE GRAN 0.9 % Normal 0.0 - 0.9 [facility] Comment on above: Result Comment: Martina ture Granulocyte Count (IG) includes promyelocytes, myelocytes and metamyelocytes but does not include bands. Percent differential counts (%) should be interpreted in the context of the absolute cell counts (cells/L). Performed By: #### L ACT #### [address] [address] Basophils (Bld) [#/Vol] 0.08 10*3/uL Normal 0.00 - 0.10 [facility] Comment on above: Performed By: #### L ACT #### [address] [address] Basophils/100 WBC (Bld) 0.8 % Normal 0.0 - 2.0 [facility] Comment on above: Performed By: #### L ACT #### [address] [address] Eosinophils (Bld) [#/Vol] 0.52 10*3/uL High 0.00 - 0.40 [facility] Comment on above: Performed By: #### L ACT #### [address] [address] Eosinophils/100 WBC (Bld) 4.9 % Normal 0.0 - 6.0 [facility] Comment on above: Performed By: #### L ACT #### [address] [address] Erythrocyte distribution width (RBC) [Ratio] 17.2 % High 11.5 - 14.5 [facility] Comment on above: Performed By: #### L ACT #### [address] [address] Hematocrit (Bld) [Volume fraction] 28.1 % Low 36.0 - 46.0 [facility] Comment on above: Performed By: #### L ACT #### [address] [address] Hemoglobin (Bld) [Mass/Vol] 8.1 g/dL Low 12.0 - 16.0 [facility] Comment on above: Performed By: #### L ACT #### [address] [address] Lymphocytes (Bld) [#/Vol] 2.75 10*3/uL Normal 0.80 - 3.00 [facility] Comment on above: Performed By: #### L ACT #### [address] [address] Lymphocytes/100 WBC (Bld) 26.0 % Normal 13.0 - 44.0 [facility] Comment on above: Performed By: #### L ACT #### [address] [address] MCHC (RBC) [Mass/Vol] 28.8 g/dL Low 32.0 - 36.0 [facility] Comment on above: Performed By: #### L ACT #### [address] [address] MCV (RBC) [Entitic vol] 71 fL Low 80 - 100 [facility] Comment on above: Performed By: #### L ACT #### [address] [address] Monocytes (Bld) [#/Vol] 0.83 10*3/uL High 0.05 - 0.80 [facility] Comment on above: Performed By: #### L ACT #### [address] [address] Monocytes/100 WBC (Bld) 7.8 % Normal 2.0 - 10.0 [facility] Comment on above: Performed By: #### L ACT #### [address] [address] Neutrophils (Bld) [#/Vol] 6.31 10*3/uL High 1.60 - 5.50 [facility] Comment on above: Result Comment: Perc ent differential counts (%) should be interpreted in the context of the absolute cell counts (cells/L). Performed By: #### L ACT #### [address] [address] Neutrophils/100 WBC (Bld) 59.6 % Normal 40.0 - 80.0 [facility] Comment on above: Performed By: #### L ACT #### [address] [address] Platelets (Bld) [#/Vol] 261 10*3/uL Normal 150 - 450 [facility] Comment on above: Performed By: #### L ACT #### [address] [address] RBC 3.98 x10E12/L Low 4.00 - 5.20 [facility] Comment on above: Performed By: #### L ACT #### [address] [address] WBC (Bld) [#/Vol] 10.6 10*3/uL Normal 4.4 - 11.3 [facility] Comment on above: Performed By: #### L ACT #### [address] [address] Daily Progress Note-General Internal Medicineon 09-12-2022 Daily [...] time. Objective Data: Objective Information: T PRBPMAPSpO2 Value36.55815880/7497% Date/Time09/12 7: 7: 7: 7: 7:35 Range(36.1C - 36.8C ) (66 - 87 ) (16 - 20 ) (100 - 113 )/ (64 - 74 ) (95% - 97% ) Pain reported at 09/12 9:07: 3 = Mild ---- Intake and Output ----- Mn/Dy[facility] Sep 12, 2022 6:00 [id number] Sep 11, 2022 10:00 [id number] Sep 11, 2022 2:00 [id number] The Intake and Output Totals for the last 24 hours are: IntakeOutputNet [id number] Physical Exam by System: Constitutional: Well developed, [...] 1 tablet(s) Oral Daily 12. Vancomycin - [facility] to Dose - IV Piggy [...] Spontaneous/Phasic Peroneal Yes None PTV Yes None [id number] Don Rico MD Final [facility] Venous Duplex Ultrasound for DVT [Sep 11 2022 7:14PM] Conclusion: CONCLUSIONS: 1. Left ventricular systolic function is normal with (more content not included)... Normal [facility] Daily Progress Note-Nephrolo gyon 09-12-2022 Daily Progress [...] . Objective Data: Objective Information: T PRBPMAPSpO2 Value36.05961566/7497% Date/Time09/12 7: 7: 7: 7: 7:35 Range(36.1C - 36.8C ) (66 - 87 ) (16 - 20 ) (100 - 113 )/ (64 - 74 ) (95% - 97% ) Pain reported at 09/12 9:07: 3 = Mild ---- Intake and Output ----- Mn/Dy/Year TimeIntakeOutputNet Sep 12, 2022 6:00 [id number] Sep 11, 2022 10:00 [id number] Sep 11, 2022 2:00 [id number] The Intake and Output Totals for the last 24 hours are: IntakeOutputNet [id number] Physical Exam by System: Constitutional: Awake, alert, [...] 12-Sep-2022 11:24 by Ru Mills () Normal [facility] GLUCOSE-POCTon 09-12-2022 Glucose [Mass/Vol] 177 mg/dL High - [address] [place] [address] Comment on above: Performed By: #### U ARFX #### [address] [address] Glucose [Mass/Vol] 159 mg/dL High - [address] [place] [address] Comment on above: Performed By: #### L ACT #### [address] [address] Glucose [Mass/Vol] 137 mg/dL High - [address] [place] [address] Comment on above: Performed By: #### G ROLLY ####[address] [address] Glucose [Mass/Vol] 146 mg/dL High 74 - [address] [place] [address] Comment on above: Performed By: #### L ACT #### [address] [address] OSMOLALITY,URINE SPOTon OSMOLALITY,URINE SPOT 441 mOsm/kg Normal 200 - 1200 [facility] Comment on above: Performed By: #### L ACT #### [address] [address] OT Evaluation v2-occupationa l therapyon 09-12-2022 OT Evaluation v2-occupational therapy Rehab: Info: Mode of Treatmentattempted; occupational therapy Evaluation Not Performedx2 attempts made to see pt between 1447 and 1513. Pt unavailable at this time, with other care provider. Will attempt tomorrow. 09/13 Electronic Signatures: Jadyn Monk (OT) (Signed 12-Sep-2022 15:13) Authored: Info Last Updated: 12-Sep-2022 15:13 by Jadyn Monk (OT) [facility] Rehab Note-individual therap yon 09-12-2022 Rehab Note-individual therapy Rehab: Info: Disciplinephysical recreation therapy director Mode of Treatmentindividual therapy; physical therapy Time IN10:35 Time OUT11:06 Total Treatment [id number] Patient in ... at end of sessionbed, [...] to supine Supine to Sit to Supine Keyes (Bed Mobility)contact guard; 1 person assist; minimum [...] and safety. MB Electronic Signatures: Laurent Mckeon (TRAVEL REGISTERED NURSE PACU) (Signed 12-Sep-2022 12:06) Authored: Info, Vision/Cognition, Mobility/Tone, Motor, Sensory, Outcomes Tools, Short Term Goals, Outcome Summary James Mendez (PT) (Signed 13-Sep-2022 08:29) Co-Signer: Outcome Summary Last Updated: 13-Sep-2022 08:29 by James Mendez (PT) Normal [facility] SODIUM, URINE SPOTon 023 CREATININE,URINE 45.6 mg/dL Normal 20.0 - 320.0 [facility] Comment on above: Performed By: #### G ROLLY #### [place] [id number] Sodium (U) [Moles/Vol] 156 mmol/L Normal Not Established [facility] Comment on above: Performed By: #### G ROLLY #### [address] [address] SODIUM/CREAT RATIO 342 mmol/g Creat Normal Not Established [facility] Comment on above: Performed By: #### G ROLLY #### [address] [address] URIC ACIDon 09-12-2022 Urate [Mass/Vol] 4.1 mg/dL Normal 2.3 - 6.7 [facility] Comment on above: Result Comment: Loly puncture immediately after or during the administration of Metamizole may lead to falsely low results. Testing should be performed immediately prior to Metamizole dosing. Performed By: #### L ACT #### [address] [address] CBC AND DIFFERENTIALon 09-11 % AUTOMATED IMMATURE GRAN 0.5 % Normal 0.0 - 0.9 [facility] Comment on above: Result Comment: Martina ture Granulocyte Count (IG) includes promyelocytes, myelocytes and metamyelocytes but does not include bands. Percent differential counts (%) should be interpreted in the context of the absolute cell counts (cells/L). Performed By: #### U ARFX #### [address] [address] Basophils (Bld) [#/Vol] 0.06 10*3/uL Normal 0.00 - 0.10 [facility] Comment on above: Performed By: #### U ARFX #### [address] [address] Basophils/100 WBC (Bld) 0.5 % Normal 0.0 - 2.0 [facility] Comment on above: Performed By: #### U ARFX #### [address] [address] Eosinophils (Bld) [#/Vol] 0.48 10*3/uL High 0.00 - 0.40 [facility] Comment on above: Performed By: #### U ARFX #### [address] [address] Eosinophils/100 WBC (Bld) 4.0 % Normal 0.0 - 6.0 [facility] Comment on above: Performed By: #### U ARFX #### [address] [address] Erythrocyte distribution width (RBC) [Ratio] 17.1 % High 11.5 - 14.5 [facility] Comment on above: Performed By: #### U ARFX #### [address] [address] Hematocrit (Bld) [Volume fraction] 27.8 % Low 36.0 - 46.0 [facility] Comment on above: Performed By: #### U ARFX #### [address] [address] Hemoglobin (Bld) [Mass/Vol] 8.0 g/dL Low 12.0 - 16.0 [facility] Comment on above: Performed By: #### U ARFX #### [address] [address] Lymphocytes (Bld) [#/Vol] 2.95 10*3/uL Normal 0.80 - 3.00 [facility] Comment on above: Performed By: #### U ARFX #### [address] [address] Lymphocytes/100 WBC (Bld) 24.4 % Normal 13.0 - 44.0 [facility] Comment on above: Performed By: #### U ARFX #### [address] [address] MCHC (RBC) [Mass/Vol] 28.8 g/dL Low 32.0 - 36.0 [facility] Comment on above: Performed By: #### U ARFX #### [address] [address] MCV (RBC) [Entitic vol] 71 fL Low 80 - 100 [facility] Comment on above: Performed By: #### U ARFX #### [address] [address] Monocytes (Bld) [#/Vol] 1.01 10*3/uL High 0.05 - 0.80 [facility] Comment on above: Performed By: #### U ARFX #### [address] [address] Monocytes/100 WBC (Bld) 8.4 % Normal 2.0 - 10.0 [facility] Comment on above: Performed By: #### U ARFX #### [address] [address] Neutrophils (Bld) [#/Vol] 7.53 10*3/uL High 1.60 - 5.50 [facility] Comment on above: Result Comment: Perc ent differential counts (%) should be interpreted in the context of the absolute cell counts (cells/L). Performed By: #### U ARFX #### [address] [address] Neutrophils/100 WBC (Bld) 62.2 % Normal 40.0 - 80.0 [facility] Comment on above: Performed By: #### U ARFX #### [address] [address] Platelets (Bld) [#/Vol] 252 10*3/uL Normal 150 - 450 [facility] Comment on above: Performed By: #### U ARFX #### [address] [address] RBC 3.94 x10E12/L Low 4.00 - 5.20 [facility] Comment on above: Performed By: #### U ARFX #### [address] [address] WBC (Bld) [#/Vol] 12.1 10*3/uL High 4.4 - 11.3 [facility] Comment on above: Performed By: #### U ARFX #### [place] [address] COMPREHENSIVE PANELon 2022 Albumin [Mass/Vol] 3.1 g/dL Low 3.4 - 5.0 [facility] Comment on above: Performed By: #### G ROLLY #### [address] [address] ALP [Catalytic activity/Vol] 89 U/L Normal 33 - 136 [facility] Comment on above: Performed By: #### G ROLLY #### [address] [address] ALT [Catalytic activity/Vol] 6 U/L Low 7 - 45 [facility] Comment on above: Result Comment: Madhavi ents treated with Sulfasalazine may generate falsely decreased results for ALT. Performed By: #### G ROLLY #### [address] [address] Anion gap [Moles/Vol] 9 mmol/L Low 10 - 20 [facility] Comment on above: Performed By: #### G ROLLY #### [address] [address] AST [Catalytic activity/Vol] 10 U/L Normal 9 - 39 [facility] Comment on above: Performed By: #### G ROLLY #### [address] [address] Bilirubin [Mass/Vol] 0.4 mg/dL Normal 0.0 - 1.2 [facility] Comment on above: Performed By: #### G ROLLY #### [address] [address] Calcium [Mass/Vol] 8.5 mg/dL Low 8.6 - 10.3 [facility] Comment on above: Performed By: #### G ROLLY #### [address] [address] Chloride [Moles/Vol] 96 mmol/L Low 98 - 107 [facility] Comment on above: Performed By: #### G ROLLY #### [address] [address] Creatinine [Mass/Vol] 0.72 mg/dL Normal 0.50 - 1.05 [facility] Comment on above: Performed By: #### G ROLLY #### [address] [address] GFR/1.73 sq M.predicted among non-blacks MDRD (S/P/Bld) [Vol rate/Area] 87 mL/min/{1.73_m2} Normal >90 [facility] Comment on above: Result Comment: CALC ULATIONS OF ESTIMATED GFR ARE PERFORMED USING THE 2020 CKD-EPI STUDY REFIT EQUATION WITHOUT THE RACE VARIABLE FOR THE IDMS-TRACEABLE CREATININE METHODS. https://jasn.asnjournals.org/content/early//ASN.47630 37204 Performed By: #### G ROLLY #### [address] [address] Glucose [Mass/Vol] 136 mg/dL High 74 - 99 [facility] Comment on above: Performed By: #### G ROLLY #### [address] [address] HCO3 (Bld) [Moles/Vol] 30 mmol/L Normal 21 - 32 [facility] Comment on above: Performed By: #### G ROLLY #### [address] [address] Potassium [Moles/Vol] 3.5 mmol/L Normal 3.5 - 5.3 [facility] Comment on above: Performed By: #### G ROLLY #### [address] [address] Protein [Mass/Vol] 5.9 g/dL Low 6.4 - 8.2 [facility] Comment on above: Performed By: #### G ROLLY #### [address] [address] Sodium [Moles/Vol] 131 mmol/L Low 136 - 145 [facility] Comment on above: Performed By: #### G ROLLY #### [address] [address] Urea nitrogen [Mass/Vol] 13 mg/dL Normal 6 - 23 [facility] Comment on above: Performed By: #### G ROLLY #### [address] [address] Consult-Nephrologyon 023 Consult-Nephrology Service: Service: Nephrology Consult: [...] Known Allergies: Objective: Objective Information: T PRBPMAPSpO2 Value36.48486089/7095% Date/Time09/11 7: 7: 7: 7: 7:54 Range(36.4C [...] Bilateral [J (more content not included)... Normal [facility] Daily Progress Note-General Internal Medicineon 09-11-2022 Daily Progress Note-General Internal Medicine Service: General Internal Medicine Subjective Data: DARYN SHAH is a 76 year old Female who is Hospital Day # 4. Overnight Events: Patient had an uneventful night. Additional Information: Patient seen and examined at bedside. She is doing well. No issues today Objective Data: Objective Information: T PRBPMAPSpO2 Value36.96289239/7095% Date/Time09/11 7: 7: 7: 7: 7:54 Range(36.4C - 36.7C ) (66 - 94 ) (16 - 19 ) (107 - 124 )/ (69 - 74 ) (94% - 98% ) Pain reported at 09/10 20:00: 0 = None ---- Intake and Output ----- Mn/Dy[facility] Sep 11, 2022 6:00 [id number] Sep 10, 2022 10:00 [id number] Sep 10, 2022 2:00 [id number] The Intake and Output Totals for the last 24 hours are: [facility] [id number] Physical Exam by System: Constitutional: Well developed, [...] wounds Hi (more content not included)... Normal [facility] Echocardiogramon 09-11-2022 Echocardiography [facility] [address] ext-2528, TRANSTHORACIC ECHOCARDIOGRAM REPORT Patient Name: DARYN SHAH Reading Physician: [id number] Norman Valdivia MD Study Date: 09/11/2022 Referring ANGELIQUE CLARKE Physician: MRN/PID: [id number] PCP: Accession/Order#: [id number] Department [address] Location: Date of : 1945 Fellow: Gender: F Nurse: Admit Date: 09/08/2022 Planer Tailer: Asia Miles RVT, RCS Admission Status: Inpatient - Additional Staff: Routine Height: 167.00 cm CC Report to: Weight: 116.00 kg Study Type: Echocardiogram BSA: 2.21 m2 Blood Pressure: 111 /70 mmHg Diagnosis/ICD: I48.0-Paroxysmal atrial fibrillation Indication: AFib Procedure/CPT: Echo Complete w Full Doppler-[id number] Patient History: Pertinent History: Previous echo 02-14-2019. [...] [place] Area A2C: 26.8 cm2 LA [place] A4C: 6.8 cm LA [place] A2C: 5.7 cm LA Volume Index: 44.3 [...] 1.1 m/s (0.6-0.9m/s) PV Max P.5 mmHg [id number] Norman Valdivia MD Electronically signed on 09/11/2022 at 11:54:26 AM Final Normal [facility] FECAL OCCULT BLD IMMUNOASSAY on 09-11-2022 FECAL OCCULT BLD IMMUNOASSAY Negative Normal Negative [facility] Comment on above: Result Comment: This [...] date. Performed By: #### U ARFX #### [place] [address] Lab Specimen Source Stool Normal [facility] Comment on above: Performed By: #### U ARFX #### [address] [address] GLUCOSE-POCTon 09-11-2022 Glucose [Mass/Vol] 169 mg/dL High 74 - 99 [facility] Comment on above: Performed By: #### U ARFX #### [address] [address] Glucose [Mass/Vol] 203 mg/dL High 74 - 99 [facility] Comment on above: Performed By: #### G ROLLY #### [address] [address] Glucose [Mass/Vol] 134 mg/dL High 74 - 99 [facility] Comment on above: Performed By: #### G ROLLY #### [place] [id number] Glucose [Mass/Vol] 153 mg/dL High 74 - [address] [place] [address] Comment on above: Performed By: #### G ROLLY ####[place] [id number] Rehab Note-physical therapyo n 09-11-2022 Rehab Note-physical therapy Rehab: Info: Disciplinephysical recreation therapy director Mode of Treatmentphysical therapy Time IN13:54 Time OUT14:31 Total Treatment [id number] Patient in ... at end of sessionbed, [...] Outcome Summary: Physical TherapyPatient became emotional when doctor of nursing practice kept adjusting portable telemetry and stating her [...] Info, Mobility/Tone, Motor, Outcomes Tools Constance Draper (TRAVEL REGISTERED NURSE PACU) (Signed 11-Sep-2022 15:56) Authored: Info, Mobility/Tone, Motor, Sensory, Outcomes Tools, Outcome Summary Valery Christy (PT) (Signed 11-Sep-2022 16:41) Co-Signer: Info, Mobility/Tone, Motor, Sensory, Outcomes Tools, Outcome Summary Last Updated: 11-Sep-2022 16:41 by Valery Christy (PT) Normal [facility] LAB Venous Duplex Ultra sound DVTon 09-11-2022 VAS LAB Venous [place] [address] ext-2528, Vascular Lab Report Lower Venous Duplex Ultrasound Patient Name: DARYN SHAH Reading Physician: [id number] Don Rico MD Study Date: 09/11/2022 Referring Physician: CHIDI SCHULZ MRN/PID: [id number] PCP: Accession/Order#: [id number] CC Report to: Date of : 1945 Technologist: Cristal Iyer RVT Gender: F Technologist 2: Admission Status: Inpatient Location Performed: [facility] Diagnosis/ICD: R60.0-Localized (leg) edema; M79.89-Left leg swelling; M79.605-Pain in left leg Procedure/CPT: 01571 Peripheral venous duplex scan for DVT complete-08403 CONCLUSIONS: Right Lower Venous: No evidence of [...] Spontaneous/Phasic Peroneal Yes None PTV Yes None [id number] Don Rico MD Final Normal [facility] BASIC METABOLIC PANELon 06-0 Anion gap [Moles/Vol] 10 mmol/L Normal 10 - 20 [facility] Comment on above: Performed By: #### B MP #### [address] [address] Calcium [Mass/Vol] 8.4 mg/dL Low 8.6 - 10.3 [facility] Comment on above: Performed By: #### B MP #### [address] [address] Chloride [Moles/Vol] 97 mmol/L Low 98 - 107 [facility] Comment on above: Performed By: #### B MP #### [address] [address] Creatinine [Mass/Vol] 0.82 mg/dL Normal 0.50 - 1.05 [facility] Comment on above: Performed By: #### B MP #### [address] [address] GFR/1.73 sq M.predicted among non-blacks MDRD (S/P/Bld) [Vol rate/Area] 75 mL/min/{1.73_m2} Normal >90 [facility] Comment on above: Result Comment: CALC ULATIONS OF ESTIMATED GFR ARE PERFORMED USING THE 2020 CKD-EPI STUDY REFIT EQUATION WITHOUT THE RACE VARIABLE FOR THE IDMS-TRACEABLE CREATININE METHODS. https://jasn.asnjournals.org/content//ASN.62686 53829 Performed By: #### B MP #### [address] [address] Glucose [Mass/Vol] 152 mg/dL High 74 - 99 [facility] Comment on above: Performed By: #### B MP #### [address] [address] HCO3 (Bld) [Moles/Vol] 28 mmol/L Normal 21 - 32 [facility] Comment on above: Performed By: #### B MP #### [address] [address] Potassium [Moles/Vol] 3.6 mmol/L Normal 3.5 - 5.3 [facility] Comment on above: Performed By: #### B MP #### [address] [address] Sodium [Moles/Vol] 131 mmol/L Low 136 - 145 [facility] Comment on above: Performed By: #### B MP #### [address] [address] Urea nitrogen [Mass/Vol] 17 mg/dL Normal 6 - 23 [facility] Comment on above: Performed By: #### B MP #### [address] [address] CBC AND DIFFERENTIALon 09-10 % AUTOMATED IMMATURE GRAN 0.6 % Normal 0.0 - 0.9 [facility] Comment on above: Result Comment: Martina ture Granulocyte Count (IG) includes promyelocytes, myelocytes and metamyelocytes but does not include bands. Percent differential counts (%) should be interpreted in the context of the absolute cell counts (cells/L). Performed By: #### C BCDF ####[address] [address] Basophils (Bld) [#/Vol] 0.06 10*3/uL Normal 0.00 - 0.10 [facility] Comment on above: Performed By: #### C BCDF ####[address] [address] Basophils/100 WBC (Bld) 0.5 % Normal 0.0 - 2.0 [facility] Comment on above: Performed By: #### C BCDF ####[address] [address] Eosinophils (Bld) [#/Vol] 0.28 10*3/uL Normal 0.00 - 0.40 [facility] Comment on above: Performed By: #### C BCDF ####[address] [address] Eosinophils/100 WBC (Bld) 2.3 % Normal 0.0 - 6.0 [facility] Comment on above: Performed By: #### C BCDF ####[address] [address] Erythrocyte distribution width (RBC) [Ratio] 17.2 % High 11.5 - 14.5 [facility] Comment on above: Performed By: #### C BCDF ####[address] [address] Hematocrit (Bld) [Volume fraction] 26.4 % Low 36.0 - 46.0 [facility] Comment on above: Performed By: #### C BCDF ####[address] [address] Hemoglobin (Bld) [Mass/Vol] 7.8 g/dL Low 12.0 - 16.0 [facility] Comment on above: Performed By: #### C BCDF ####[address] [address] Lymphocytes (Bld) [#/Vol] 2.19 10*3/uL Normal 0.80 - 3.00 [facility] Comment on above: Performed By: #### C BCDF ####[address] [address] Lymphocytes/100 WBC (Bld) 17.6 % Normal 13.0 - 44.0 [facility] Comment on above: Performed By: #### C BCDF ####[address] [address] MCHC (RBC) [Mass/Vol] 29.5 g/dL Low 32.0 - 36.0 [facility] Comment on above: Performed By: #### C BCDF ####[address] [address] MCV (RBC) [Entitic vol] 70 fL Low 80 - 100 [facility] Comment on above: Performed By: #### C BCDF ####[address] [address] Monocytes (Bld) [#/Vol] 1.19 10*3/uL High 0.05 - 0.80 [facility] Comment on above: Performed By: #### C BCDF ####[address] [address] Monocytes/100 WBC (Bld) 9.6 % Normal 2.0 - 10.0 [facility] Comment on above: Performed By: #### C BCDF ####[address] [address] Neutrophils (Bld) [#/Vol] 8.64 10*3/uL High 1.60 - 5.50 [facility] Comment on above: Result Comment: Perc ent differential counts (%) should be interpreted in the context of the absolute cell counts (cells/L). Performed By: #### C BCDF ####[address] [address] Neutrophils/100 WBC (Bld) 69.4 % Normal 40.0 - 80.0 [facility] Comment on above: Performed By: #### C BCDF ####[address] [address] Platelets (Bld) [#/Vol] 225 10*3/uL Normal 150 - 450 [facility] Comment on above: Performed By: #### C BCDF ####[address] [address] RBC 3.78 x10E12/L Low 4.00 - 5.20 [facility] Comment on above: Performed By: #### C BCDF ####[address] [address] WBC (Bld) [#/Vol] 12.4 10*3/uL High 4.4 - 11.3 [facility] Comment on above: Performed By: #### C BCDF ####[address] [address] Daily Progress Note-General Internal Medicineon 09-10-2022 Daily [...] vancomycin Objective Data: Objective Information: T PRBPMAPSpO2 Value36.30872351/7497% Date/Time09/10 7: 7: 7: 7: 7:50 Range(36.1C - 37.1C ) (58 - 94 ) (18 - 19 ) (101 - 117 )/ (57 - 74 ) (97% - 98% ) Highest temp of 37.1 C was recorded at 09/09 15:27 Pain reported at 09/10 9:30: 0 = None ---- Intake and Output ----- Mn/Dy/[facility] 10, 2022 6:00 [id number] Sep 09, 2022 10:00 [id number] Sep 09, 2022 2:00 [id number] The Intake and Output Totals for the last 24 hours are: [facility] [id number] Physical Exam by System: Constitutional: Well developed, [...] medical history (more content not included)... Normal [facility] EMR ADDONon 09-10-2022 ADDON CONFIRMATION REQUEST REC'D Normal [facility] Comment on above: Performed By: #### U ARFX #### [place] [id number] GLUCOSE-POCTon 09-10-2022 Glucose [Mass/Vol] 160 mg/dL High 74 - 99 [facility] Comment on above: Performed By: #### U ARFX #### [address] [address] Glucose [Mass/Vol] 171 mg/dL High 74 - 99 [facility] Comment on above: Performed By: #### G ROLLY #### [address] [address] Glucose [Mass/Vol] 163 mg/dL High 74 - 99 [facility] Comment on above: Performed By: #### G ROLLY #### [address] [address] Glucose [Mass/Vol] 147 mg/dL High 74 - [address] [place] [address] Comment on above: Performed By: #### U ARFX #### [place] [id number] MAGNESIUMon 09-10-2022 Magnesium [Mass/Vol] 1.80 mg/dL Normal 1.60 - 2.40 [facility] Comment on above: Performed By: #### U ARFX #### [place] [address] [place] [address] PT/INRon 09-10-2022 PT Coag (PPP) [Time] 16.8 s High 9.8 - 13.4 [facility] Comment on above: Performed By: #### P TINR ####[address] [address] PT, INR 1.4 High 0.9 - 1.1 [facility] Comment on above: Performed By: #### P TINR ####[address] [address] Rehab Note-individual therap yon 09-10-2022 Rehab Note-individual therapy Rehab: Info: Disciplinephysical recreation therapy director Mode of Treatmentindividual therapy Time IN11:07 Time OUT11:26 Total Treatment [id number] Patient in ... at end of sessionbed, [...] Mobility/Tone: Bed Mobility Assessment/Interventions supine to sit Abpnzy-dp-Rli Keyes (Bed Mobility)supervision Assistive Device (Bed Mobility)bed rails [...] POC as tolerated. Electronic Signatures: Ladi Vasquez (TRAVEL REGISTERED NURSE PACU) (Signed 10-Sep-2022 11:45) Authored: Info, Vision/Cognition, Mobility/Tone, Motor, Sensory, Outcomes Tools, Outcome Summary Cameron Perkins (PT) (Signed 10-Sep-2022 13:51) Co-Signer: Info, Vision/Cognition, Mobility/Tone, Motor, Sensory, Outcomes Tools, Outcome Summary Last Updated: 10-Sep-2022 13:51 by Cameron Perkins (PT) [facility] URINALYSIS WITH CULTURE IF I NDICATEDon 09-10-2022 Appearance (U) Canceled [facility] Comment on above: Order Comment: TEST URINALYSIS WITH CULTURE IF INDICATED WAS CANCELLED, 09/10/2022 17:38 NSR. Performed By: #### G ROLLY #### [place] [address] ASCORBIC ACID Canceled [facility] Comment on above: Order Comment: TEST URINALYSIS WITH CULTURE IF INDICATED WAS CANCELLED, 09/10/2022 17:38 NSR. Result Comment: Conc entrations > = 20 mg/dL of ascorbic acid can be expected to cause strong interference in the reactions testing for glucose, nitrite and blood. It is recommended to discontinue Vitamin C administration and retest in 10 hours. Performed By: #### G ROLLY #### [place] [id number] Bilirubin Ql (U) Canceled Normal [facility] Comment on above: Order Comment: TEST URINALYSIS WITH CULTURE IF INDICATED WAS CANCELLED, 09/10/2022 17:38 NSR. Performed By: #### G ROLLY #### [address] [address] Color (U) Canceled [facility] Comment on above: Order Comment: TEST URINALYSIS WITH CULTURE IF INDICATED WAS CANCELLED, 09/10/2022 17:38 NSR. Performed By: #### G ROLLY #### [address] [address] Glucose Ql (U) Canceled [facility] Comment on above: Order Comment: TEST URINALYSIS WITH CULTURE IF INDICATED WAS CANCELLED, 09/10/2022 17:38 NSR. Performed By: #### G ROLLY #### [address] [address] Hemoglobin Ql (U) Canceled [facility] Comment on above: Order Comment: TEST URINALYSIS WITH CULTURE IF INDICATED WAS CANCELLED, 09/10/2022 17:38 NSR. Performed By: #### G ROLLY #### [address] [address] Ketones Ql (U) Canceled [facility] Comment on above: Order Comment: TEST URINALYSIS WITH CULTURE IF INDICATED WAS CANCELLED, 09/10/2022 17:38 NSR. Performed By: #### G ROLLY #### [address] [address] Leukocyte esterase Test strip Ql (U) Canceled [facility] Comment on above: Order Comment: TEST URINALYSIS WITH CULTURE IF INDICATED WAS CANCELLED, 09/10/2022 17:38 NSR. Performed By: #### G ROLLY #### [address] [address] Nitrite Ql (U) Canceled [facility] Comment on above: Order Comment: TEST URINALYSIS WITH CULTURE IF INDICATED WAS CANCELLED, 09/10/2022 17:38 NSR. Performed By: #### G ROLLY #### [place] [id number] pH Canceled Normal [facility] Comment on above: Order Comment: TEST URINALYSIS WITH CULTURE IF INDICATED WAS CANCELLED, 09/10/2022 17:38 NSR. Performed By: #### G ROLLY #### [place] [id number] Protein Ql (U) Canceled [facility] Comment on above: Order Comment: TEST URINALYSIS WITH CULTURE IF INDICATED WAS CANCELLED, 09/10/2022 17:38 NSR. Performed By: #### G ROLLY #### [place] [id number] Specific gravity (U) [Rel density] Canceled [facility] Comment on above: Order Comment: TEST URINALYSIS WITH CULTURE IF INDICATED WAS CANCELLED, 09/10/2022 17:38 NSR. Performed By: #### G ROLLY #### [place] [id number] UROBILINOGEN Canceled Normal [facility] Comment on above: Order Comment: TEST URINALYSIS WITH CULTURE IF INDICATED WAS CANCELLED, 09/10/2022 17:38 NSR. Performed By: #### G ROLLY #### [place] [id number] VANCOMYCINon 09-10-2022 VANCOMYCIN 10.3 ug/mL Normal [facility] Comment on above: Result Comment: .The rapeutic Ranges: Peak: All ages: 30.0-40.0 ug/mL . Trough: Age <18y: 5.0-10.0 ug/mL . Age >/= 18y: 5.0-20.0 ug/mL . Vancomycin trough concentrations drawn immediately prior to the next dose at steady-state are preferred for monitoring patients treated with vancomycin. Ref.: Am J Health-Syst Pharm 66: 83-98, 2009. Performed By: #### C BCDF #### [place] [id number] BNPon 09-09-2022 Natriuretic peptide B (Bld) [Mass/Vol] 296 pg/mL High 0 - 99 [facility] Comment on above: Result Comment: . <1 00 pg/mL - Heart failure unlikely 100-299 pg/mL - Intermediate probability of acute heart . failure exacerbation. Correlate with clinical . context and patient history. >=300 pg/mL - Heart Failure likely. Correlate with clinical . context and patient history. BNP testing is performed using different testing methodology at [facility] than at other legacy [facility]. Direct result comparisons should only be made within the same method. Performed By: #### C BCDF #### [place] [id number] C-REACTIVE PROTEINon 023 C-REACTIVE PROTEIN 29.42 mg/dL Abnormal [facility] Comment on above: Result Comment: REF VALUE < 1.00 Performed By: #### C RP ####[place] [id number] CBC AND DIFFERENTIALon 09-09 % AUTOMATED IMMATURE GRAN 0.4 % Normal 0.0 - 0.9 [facility] Comment on above: Result Comment: Martina ture Granulocyte Count (IG) includes promyelocytes, myelocytes and metamyelocytes but does not include bands. Percent differential counts (%) should be interpreted in the context of the absolute cell counts (cells/L). Performed By: #### C BCDF #### [address] [address] Basophils (Bld) [#/Vol] 0.02 10*3/uL Normal 0.00 - 0.10 [facility] Comment on above: Performed By: #### C BCDF #### [address] [address] Basophils/100 WBC (Bld) 0.1 % Normal 0.0 - 2.0 [facility] Comment on above: Performed By: #### C BCDF #### [address] [address] Eosinophils (Bld) [#/Vol] 0.09 10*3/uL Normal 0.00 - 0.40 [facility] Comment on above: Performed By: #### C BCDF #### [address] [address] Eosinophils/100 WBC (Bld) 0.7 % Normal 0.0 - 6.0 [facility] Comment on above: Performed By: #### C BCDF #### [address] [address] Erythrocyte distribution width (RBC) [Ratio] 17.2 % High 11.5 - 14.5 [facility] Comment on above: Performed By: #### C BCDF #### [address] [address] Hematocrit (Bld) [Volume fraction] 30.6 % Low 36.0 - 46.0 [facility] Comment on above: Performed By: #### C BCDF #### [address] [address] Hemoglobin (Bld) [Mass/Vol] 8.6 g/dL Low 12.0 - 16.0 [facility] Comment on above: Performed By: #### C BCDF #### [address] [address] Lymphocytes (Bld) [#/Vol] 1.78 10*3/uL Normal 0.80 - 3.00 [facility] Comment on above: Performed By: #### C BCDF #### [address] [address] Lymphocytes/100 WBC (Bld) 12.9 % Normal 13.0 - 44.0 [facility] Comment on above: Performed By: #### C BCDF #### [address] [address] MCHC (RBC) [Mass/Vol] 28.1 g/dL Low 32.0 - 36.0 [facility] Comment on above: Performed By: #### C BCDF #### [address] [address] MCV (RBC) [Entitic vol] 71 fL Low 80 - 100 [facility] Comment on above: Performed By: #### C BCDF #### [address] [address] Monocytes (Bld) [#/Vol] 1.27 10*3/uL High 0.05 - 0.80 [facility] Comment on above: Performed By: #### C BCDF #### [address] [address] Monocytes/100 WBC (Bld) 9.2 % Normal 2.0 - 10.0 [facility] Comment on above: Performed By: #### C BCDF #### [address] [address] Neutrophils (Bld) [#/Vol] 10.61 10*3/uL High 1.60 - 5.50 [facility] Comment on above: Result Comment: Perc ent differential counts (%) should be interpreted in the context of the absolute cell counts (cells/L). Performed By: #### C BCDF #### [address] [address] Neutrophils/100 WBC (Bld) 76.7 % Normal 40.0 - 80.0 [facility] Comment on above: Performed By: #### C BCDF #### [address] [address] Platelets (Bld) [#/Vol] 224 10*3/uL Normal 150 - 450 [facility] Comment on above: Performed By: #### C BCDF #### [address] [address] RBC 4.33 x10E12/L Normal 4.00 - 5.20 [facility] Comment on above: Performed By: #### C BCDF #### [address] [address] WBC (Bld) [#/Vol] 13.8 10*3/uL High 4.4 - 11.3 [facility] Comment on above: Performed By: #### C BCDF #### [address] [address] COMPREHENSIVE PANELon 2022 Albumin [Mass/Vol] 3.4 g/dL Normal 3.4 - 5.0 [facility] Comment on above: Performed By: #### B MP #### [address] [address] ALP [Catalytic activity/Vol] 91 U/L Normal 33 - 136 [facility] Comment on above: Performed By: #### B MP #### [address] [address] ALT [Catalytic activity/Vol] 7 U/L Normal 7 - 45 [facility] Comment on above: Result Comment: Madhavi ents treated with Sulfasalazine may generate falsely decreased results for ALT. Performed By: #### B MP #### [address] [address] Anion gap [Moles/Vol] 11 mmol/L Normal 10 - 20 [facility] Comment on above: Performed By: #### B MP #### [address] [address] AST [Catalytic activity/Vol] 15 U/L Normal 9 - 39 [facility] Comment on above: Performed By: #### B MP #### [address] [address] Bilirubin [Mass/Vol] 0.4 mg/dL Normal 0.0 - 1.2 [facility] Comment on above: Performed By: #### B MP #### [address] [address] Calcium [Mass/Vol] 8.7 mg/dL Normal 8.6 - 10.3 [facility] Comment on above: Performed By: #### B MP #### [address] [address] Chloride [Moles/Vol] 95 mmol/L Low 98 - 107 [facility] Comment on above: Performed By: #### B MP #### [address] [address] Creatinine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 [id number] 3 10:00 AM Reviewed and Held POT CHLORIDE 10MEQ ER CAP 1 cap(s) orally once a [id number] 3 10:00 AM Potassium Chloride Extended Release Tablet, Extended ReleaseDOSE = 10 mEq Oral DailyPOT CHLORIDE 10MEQ ER CAP continued as the inpatient order Potassium Chloride Extended Release ROSUVASTATIN 10MG TAB 1 tab(s) orally once a [id number] 3 10:00 AM Rosuvastatin Tablet (CRESTOR)DOSE = 10 mg Oral DailyROSUVASTATIN 10MG TAB continued as the inpatient order Rosuvastatin TRIAMT/HCTZ 37.5-25 TAB 1 tab(s) orally once a [id number] 3 10:00 AM Triamterene 37.5 mg- hydroCHLOROthiazide 25 mg - PEDS Tablet (MAXZIDE)DOSE = 1 tablet(s) Oral DailyTRIAMT/HCTZ 37.5-25 TAB continued as the inpatient order Triamterene 37.5 mg- hydroCHLOROthiazide 25 mg - PEDS VENLAFAXINE ER 75MG CAP 1 cap(s) orally once a [id number] 3 10:00 AM Venlafaxine Extended Release Capsule, Extended Release (EFFEXOR XR)DOSE = 75 mg Oral DailyVENLAFAXINE ER 75MG CAP continued as the inpatient order Venlafaxine Extended Release XARELTO 20 MG TABLET 1 tab(s) orally once a [id number] 3 10:00 AM Blood in Urine, Monitor for XARELTO 20 MG TABLET continued as the inpatient order Blood in Urine, Monitor for; XARELTO 20 MG TABLET continued as the inpatient order Bleeding, Monitor for; XARELTO 20 MG TABLET continued as the inpatient order Rivaroxaban XARELTO 20 MG TABLET 1 tab(s) orally once a [id number] 3 10:00 AM Bleeding, Monitor for XARELTO 20 MG TABLET continued as the inpatient order Blood in Urine, Monitor for; XARELTO 20 MG TABLET continued as the inpatient order Bleeding, Monitor for; XARELTO 20 MG TABLET continued as the inpatient order Rivaroxaban XARELTO 20 MG TABLET 1 tab(s) orally once a [id number] 3 10:00 AM Rivaroxaban Tablet (XARELTO)DOSE = [...] Every 8 Hours and as Needed Normal [facility] PT/INRon 09-08-2022 PT Coag (PPP) [Time] 63.6 s Critically abnormal 9.8 - 13.4 [facility] Comment on above: Order Comment: PT RE PORTED TO [facility] , 09/08/2022 13:56 Called- RB to Dr. Vera Huang at 1354 by , 09/08/2022 13:54 [facility], 09/08/2022 13:56 Performed By: #### C BCDF #### [place] [address] PT, INR 5.4 Critically abnormal 0.9 - 1.1 [facility] Comment on above: Order Comment: [facility], 09/08/[facility]22 13:56 Called- RB to Dr. Vera Huang at 1354 by , 09/08/2022 13:54 Result Comment: Call ed- RB to Dr. Vera Huang at 1354 by , 09/08/2022 13:54 Performed By: #### C BCDF #### [place] [address] Patient Profile - Adult v2on 09-08-2022 Patient Profile - Adult v2 Profile: Initial Info: How to be AddressedEmily Spoken Language PreferredEnglish (1) Source of Informationpatient Stated Reason for AdmissionI'm sick Primary Contact Name and NumberJerry [phone] Wants Family/Rep Notified of Admissionno Notify PCPdo not notify PCP Informed of Patient Visiting [facility]yes [facility] To in Past 90 Daysnone Employment Statusdisabled Current or Previous Servicenone Patient Belongingsremains with patient Patient Belongings Remaining with Patientcell phone/electronics; vision aids; purse/wallet; dental appliance; top dentures Medications Brought to Hospitalno General Health: Weight in kg116.5 kilogram(s) Weight in hcy256.8 pound(s) Weight Methodactual (measured) Scale Typebed Height [...] From History and Physical 08-Sep-2022 17:47 Normal [facility] Provider Note - ED v3on 06-0 [...] beats. Heart rate is 101 bpm. The UT interval is 164 ms. The QRS duration is 96 ms. The QTc is 453 ms. [place] is -15 degrees. Patient was seen and evaluated due to complaints of generalized weakness and fever with inability to get out of bed. She was diagnosed with a urinary tract infection started on broad-spectrum antibiotics due to his concern for sepsis and admitted to the hospital for further IV antibiotics. This chart was dictated with the use of [employer] software within the framework of the current [...] day Drug (more content not included)... Normal [facility] RESPIRATORY CULT./SM,LOWERon 09-08-2022 RESPIRATORY CULT./SM,LOWER TEST RESPIRATORY CULT./SM,LOWER WAS CANCELLED, 09/13/2022 04:12 No specimen received. PATIENT: DARYN SHAH LOCATION: [address] BILL#: [id number] : 49 AGE: SEX: F ORDERED BY: ANGELIQUE CLARKE SOURCE: SPUTUM COLLECTED: ANTIBIOTICS AT CAREN.: RECEIVED : SITE: R E S U L T S GRAM STAIN CANCELLED 09/13/22 04:12 RESPIRATORY CULT./SM,LOWER CANCELLED 09/13/22 04:12 [facility] Comment on above: Performed By: #### L ACT #### [place] [address] Risk Screen - Adult Emergenc yon 09-08-2022 [...] Learning Preferencesverbal instruction Cultural Considerationsnone Developmental Considerationsnone Hoahaoism Considerationsnone Learning Assessment (Other Learner): Learning Assessment (Other Learner): Other learner availableno Pressure Injury/TB/Substance: Pressure Injury: Do you have a coughno Smoking Statusnever smoker (1) Alcohol Usedenies(1) Drug Usedenies (1) Admission Risk Screen: Significant IndicatorsComplete CAGE: CAGE: Is this an injured patient at a Trauma Center ([facility]/[place] /Zheng/Surveyor): no Electronic Signatures: Laurie Talamantes (RN) (Signed 08-Sep-2022 13:04) Authored: Preferred Language, Patient Preferred Pharmacy, Advanced Directives, Family Violence Adult, Learning Assessment (Patient), Learning Assessment (Other Learner), Pressure Injury/TB/Substance, Pressure Injury, CAGE Last Updated: 08-Sep-2022 13:04 by Laurie Talamantes (RN) References: 1. Data Referenced From Provider Note - ED v3 08-Sep-2022 12:38 Normal [facility] Triage - EDon 09-08-2022 Triage - ED Chart Review: PRIMARY ASSESSMENT ABCD Normal Findings: airway open and patent and alert and oriented ARRIVAL INFORMATION Means of Arrival: stretcher Mode of Arrival: ambulance Agency: [facility] Agency Name: karen Arrival From: home Accompanied By: self Language: Spoken Language Preferred: Chilean Reading Language Preferred: Chilean Present on Arrival: Device Present on Arrival [...] obeys commands Best Verbal Response: (V5) oriented [place] Score: 15 Allergies: no Patient has homicidal [...] 08-Sep-2022 13:01 by Laurie Talamantes (UZMA) Normal [facility] UA MICROSCOPICon 09-08-2022 AMORPHOUS [place] 2+ /HPF Normal [facility] Comment on above: Performed By: #### C BCDF #### [facility] [address] [place] [address] BACTERIA 2+ /HPF Abnormal [facility] Comment on above: Performed By: #### C BCDF #### [address] [address] RBC None Normal 0-5 [facility] Comment on above: Performed By: #### C BCDF #### [address] [address] WBC 64 /HPF Abnormal 0-5 [facility] Comment on above: Performed By: #### C BCDF #### [place] [id number] WBC CLUMPS RARE Normal [facility] Comment on above: Performed By: #### C BCDF #### [place] [id number] URINALYSIS WITH CULTURE IF I NDICATEDon 09-08-2022 Appearance (U) HAZY Normal CLEAR [facility] Comment on above: Performed By: #### U ARFX #### [place] [address] Bilirubin Ql (U) Negative Normal NEGATIVE [facility] Comment on above: Performed By: #### U ARFX #### [place] [address] Color (U) Yellow Normal STRAW,YELLOW [facility] Comment on above: Performed By: #### U ARFX #### [address] [address] Glucose Ql (U) Negative Normal NEGATIVE [facility] Comment on above: Performed By: #### U ARFX #### [place] [id number] Hemoglobin Ql (U) SMALL(1+) Abnormal NEGATIVE [facility] Comment on above: Performed By: #### U ARFX #### [place] [id number] Ketones Ql (U) 5(TRACE) Abnormal NEGATIVE [facility] Comment on above: Performed By: #### U ARFX #### [place] [id number] Leukocyte esterase Test strip Ql (U) LARGE(3+) Abnormal NEGATIVE [facility] Comment on above: Performed By: #### U ARFX #### [address] [address] Nitrite Ql (U) Negative Normal NEGATIVE [facility] Comment on above: Performed By: #### U ARFX #### [address] [address] pH (U) 5.0 [pH] Normal 5.0 - 8.0 [facility] Comment on above: Performed By: #### U ARFX #### [address] [address] Protein Ql (U) Negative Normal NEGATIVE [facility] Comment on above: Performed By: #### U ARFX #### [address] [address] Specific gravity (U) [Rel density] 1.024 Normal 1.005 - 1.035 [facility] Comment on above: Performed By: #### U ARFX #### [address] [address] Urobilinogen (U) [Mass/Vol] mg/dL Normal 0.0 - 1.9 [facility] Comment on above: Performed By: #### U ARFX #### [place] [id number] URINE CULTURE,BACTERIALon URINE CULTURE,BACTERIAL PATIENT: DARYN SHAH LOCATION: [address]#: [id number] : 49 AGE: SEX: F ORDERED BY: VERA HUANG SOURCE: URINE COLLECTED: 09/08/22 14:21 ANTIBIOTICS AT CAREN.: RECEIVED : 09/09/22 00:26 SITE: R E S U L T S URINE CULTURE,BACTERIAL FINAL 09/10/22 07:56 NO SIGNIFICANT GROWTH. Normal [facility] Comment on above: Performed By: #### C BCDF #### [address] [address] US RENAL BILATon 09-08-2022 US RENAL BILAT Patient Name: DARYN SHAH STUDY: US RENAL BILAT; 09/08/2022 6:46 pm INDICATION: UTI . COMPARISON: Renal ultrasound of 12/08/2019 and a three-phase CT scan of the kidneys done on 01/05/2020. ACCESSION NUMBER(S): [id number] ORDERING CLINICIAN: ANGELIQUE CLARKE TECHNIQUE: Multiple images [...] decisions. Additional Information: Noris. No longer has [facility]. She is doing better and able to [...] palliative care. Has had PT, OT and SAW SETTER but none now. . She is realizing [...] and uses bedpan. Plans to go to [facility] and slide over. Has a walker but uses a wheelchair Hyperlipidemia - with DM treating this with Irene. Good this time Lymphedema of leg - exercises have really helped to get this down. She has not been needing the compression wraps. Feels like (more content not included)... Normal [facility] Tobacco Screening.on 023 Adult depression screening assessment Yes [facility] Work Phone: Adult depression screening assessment No [facility] Work Phone: Fall risk assessment a) No falls within the last year [facility] Work Phone: Tobacco use status [facility] b) No [facility] Work Phone: Hemoglobin A1Con 06-01-2022 Glucose [Mass/Vol] 183 mg/dL [facility] Work Phone: HbA1c (Bld) [Mass fraction] 8.0 % Abnormal [facility] Work Phone: Comment on above: Diagnosis of Diabete s-Adults Non-Diabetic: < or = 5.6% Increased risk for developing diabetes: 5.7-6.4% Diagnostic of diabetes: > or = 6.5%. Monitoring of Diabetes Age (y) Therapeutic Goal (%) Adults: >18 <7.0 Pediatrics: 13-18 <7.5 7-12 <8.0 0- 6 7.5-8.5 [place] [employer]. Diabetes Care 33(S1), Apr 2009. Laboratory - Chemistry and C hemistry - challengeon 06-01-2022 Anion gap [Moles/Vol] 13 mmol/L 10 - 20 [facility] Work Phone: Calcium [Mass/Vol] 9.8 mg/dL 8.6 - 10.3 [facility] Work Phone: Chloride [Moles/Vol] 98 mmol/L 98 - 107 [facility] Work Phone: CO2 [Moles/Vol] 29 mmol/L 21 - 32 [facility] Work Phone: Creatinine [Mass/Vol] 0.86 mg/dL See Below [facility] Work Phone: Comment on above: Reference Range: 0.5 0 - 1.05 Glucose [Mass/Vol] 191 mg/dL above high threshold 74 - 99 [facility] Work Phone: [phone] Potassium [Moles/Vol] 4.7 mmol/L 3.5 - 5.3 [facility] Work Phone: [phone] Sodium [Moles/Vol] 135 mmol/L below low threshold 136 - 145 [facility] Work Phone: [phone] Urea nitrogen [Mass/Vol] 24 mg/dL above high threshold 6 - 23 [facility] Work Phone: [phone] Magnesium, Serumon 3 Magnesium [Mass/Vol] 1.62 mg/dL See Below -[facility] Work Phone: Comment on above: Reference Range: 1.6 0 - 2.40 No Panel Informationon 06-01 71 {mL/min/1.73m2} >90 [facility] Work Phone: Comment on above: CALCULATIONS OF HANNAH MATED GFR ARE PERFORMED USING THE 2020 CKD-EPI STUDY REFIT EQUATION WITHOUT THE RACE VARIABLE FOR THE IDMS-TRACEABLE CREATININE METHODS.https://jasn.asnjournals.org/content//A SN.5302220615 Vitamin B12, Serumon 023 Cobalamin (Vitamin B12) [Mass/Vol] 539 pg/mL 211 - 911 [facility] Work Phone: Office Visit (Cardiology)on 05-24-2022 Follow-up visit Diagnoses/Problems Assessed Benign essential hypertension (401.1) (I10) Hyperlipidemia (272.4) (E78.5) Chief Complaint Longstanding persistent atrial fibrillation History of Present Rnfymtn53-wpru-gpm female with a medical history of morbid [...] (276.8) (E87.6) Internal hemorrhoid, bleeding (455.2) (K64.8) meterman prescription benzodiazepine use (V58.69) (Z79.899) Lumbar facet [...] any blood (more content not included)... Normal [facility] Tobacco Screening.on 023 Fall risk assessment a) No falls within the last year [facility] Work Phone: Tobacco use status [facility] b) No [facility] Work Phone: Office Visiton 03-07-2022 Follow-up visit [...] Oral Tablet Basic Metabolic Panel; Status:Active; Requested for:[id number]; Start: metFORMIN HCl - 500 MG Oral Tablet; TAKE 1 TABLET TWICE DAILY Hemoglobin A1C; Status:Active; Requested for:06Jun2022; Hyperlipidemia Renew: Rosuvastatin Calcium 10 MG Oral Tablet; Take 1 tablet daily Hypokalemia Renew: Potassium Chloride ER 10 MEQ Oral Capsule Extended Release; TAKE 1 CAPSULE Daily Magnesium deficiency Magnesium, Serum; Status:Active; Requested for:[id number]; Medication management Follow-up visit in 3 months Outpatient Follow-up Status: Hold For - Scheduling Requested for: 07Mar2022 Vitamin D deficiency Vitamin B12, Serum; Status:Active; Requested for:[id number]; Chief Complaint jairck History of Present IllnessNo [...] palliative care. Has had PT, OT and SAW SETTER but none now. . She is realizing [...] a) No falls within the last year [facility] Work Phone: Tobacco use status [facility] b) No [facility] Work Phone: Hemoglobin A1Con 03-01-2022 Glucose [Mass/Vol] 157 mg/dL [facility] Work Phone: HbA1c (Bld) [Mass fraction] 7.1 % Abnormal [facility] Work Phone: Comment on above: Diagnosis of Diabete s-Adults Non-Diabetic: < or = 5.6% Increased risk for developing diabetes: 5.7-6.4% Diagnostic of diabetes: > or = 6.5%. Monitoring of Diabetes Age (y) Therapeutic Goal (%) Adults: >18 <7.0 Pediatrics: 13-18 <7.5 7-12 <8.0 0- 6 7.5-8.5 [place] [employer]. Diabetes Care 33(S1), Apr 2009. Laboratory - Chemistry and C hemistry - challengeon 03-01-2022 Albumin BCP dye [Mass/Vol] 3.7 g/dL 3.4 - 5.0 [facility] Work Phone: ALP [Catalytic activity/Vol] 122 U/L 33 - 136 [facility] Work Phone: ALT With P-5'-P [Catalytic activity/Vol] 8 U/L 7 - 45 [facility] Work Phone: Comment on above: Patients treated wit h Sulfasalazine may generate falsely decreased results for ALT. Anion gap [Moles/Vol] 11 mmol/L 10 - 20 [facility] Work Phone: AST With P-5'-P [Catalytic activity/Vol] 13 U/L 9 - 39 [facility] Work Phone: Bilirubin [Mass/Vol] 0.4 mg/dL 0.0 - 1.2 [facility] Work Phone: Calcium [Mass/Vol] 9.2 mg/dL 8.6 - 10.3 [facility] Work Phone: Chloride [Moles/Vol] 100 mmol/L 98 - 107 [facility] Work Phone: CO2 [Moles/Vol] 29 mmol/L 21 - 32 [facility] Work Phone: Creatinine [Mass/Vol] 0.83 mg/dL See Below [facility] Work Phone: Comment on above: Reference Range: 0.5 0 - 1.05 Glucose [Mass/Vol] 124 mg/dL above high threshold 74 - 99 [facility] Work Phone: Potassium [Moles/Vol] 4.0 mmol/L 3.5 - 5.3 [facility] Work Phone: Protein [Mass/Vol] 6.9 g/dL 6.4 - 8.2 [facility] Work Phone: Sodium [Moles/Vol] 136 mmol/L 136 - 145 [facility] Work Phone: Urea nitrogen [Mass/Vol] 20 mg/dL 6 - 23 [facility] Work Phone: Laboratory - Hematology and Cell countson 03-01-2022 Erythrocyte distribution width (RBC) [Ratio] 15.0 % above high threshold See Below [facility] Work Phone: Comment on above: Reference Range: 11. 5 - 14.5 Hematocrit (Bld) [Volume fraction] 33.5 % below low threshold See Below [facility] Work Phone: Comment on above: Reference Range: 36. 0 - 46.0 Hemoglobin (Bld) [Mass/Vol] 9.5 g/dL below low threshold See Below [facility] Work Phone: Comment on above: Reference Range: 12. 0 - 16.0 MCHC (RBC) [Mass/Vol] 28.4 g/dL below low threshold See Below [facility] Work Phone: Comment on above: Reference Range: 32. 0 - 36.0 MCV (RBC) [Entitic vol] 76 fL below low threshold 80 - 100 [facility] Work Phone: Platelets (Bld) [#/Vol] 309 10*3/uL 150 - 450 [facility] Work Phone: RBC (Bld) [#/Vol] 4.43 {x10E12/L} See Below [facility] Work Phone: Comment on above: Reference Range: 4.0 0 - 5.20 WBC (Bld) [#/Vol] 12.6 10*3/uL above high threshold 4.4 - 11.3 [facility] Work Phone: Lipid Panelon 03-01-2022 Cholesterol [Mass/Vol] 132 mg/dL 0 - 199 [facility] Work Phone: Comment on above: [...] dosing. Cholesterol in HDL [Mass/Vol] 45.0 mg/dL [facility] Work Phone: Comment on above: . AGE VERY LOW LOW N ORMAL HIGH 0-19 Y < 35 < 40 40-45 ---- 20-24 Y ---- < 40 >45 ---- >24 Y ---- < 40 40-60 >60. Cholesterol in LDL [Mass/Vol] 64 mg/dL 0 - 99 [facility] Work Phone: Comment on above: . NEAR BORD AGE TESS RABLE OPTIMAL HIGH HIGH VERY HIGH 0-19 Y 0 - 109 --- 110-129 >/= 130 ---- 20-24 Y 0 - 119 --- 120-159 >/= 160 ---- >24 Y 0 - 99 100-129 130-159 160-189 >/=190. Cholesterol.total/Chol esterol in HDL [Mass ratio] 2.9 {ratio} [facility] Work Phone: Comment on above: REF VALUESDESIRABLE < 3.4HIGH RISK > 5.0 Triglyceride [Mass/Vol] 115 mg/dL 0 - 149 [facility] Work Phone: Comment on above: . AGE [...] Lipid Panel 23 mg/dL 0 - 40 [facility] Work Phone: Magnesium, Serumon Magnesium [Mass/Vol] 1.50 mg/dL below low threshold See Below [facility] Work Phone: Comment on above: Reference Range: 1.6 0 - 2.40 No Panel Informationon 03-01 74 {mL/min/1.73m2} >90 [facility] Work Phone: Comment on above: CALCULATIONS OF HANNAH MATED GFR ARE PERFORMED USING THE 2020 CKD-EPI STUDY REFIT EQUATION WITHOUT THE RACE VARIABLE FOR THE IDMS-TRACEABLE CREATININE METHODS.https://jasn.asnjournals.org/content/early//A .6597233513 Vitamin D 25-Hydroxyon 03-01 25-hydroxyvitamin D3 [Mass/Vol] 27 ng/mL Abnormal -[facility] Work Phone: Comment on above: .DEFICIENCY: < [...] Status: Hold For - Scheduling Requested for: [id number] Stage 3 chronic kidney disease due to [...] pretty History of Present IllnessNo longer has [facility]. Asthma - has been good on no [...] palliative care. Has had PT, OT and SAW SETTER. She is realizing that she cannot do [...] and will (more content not included)... Normal [facility] Tobacco Screening.on 022 Fall risk assessment a) No falls within the last year [facility] Work Phone: Tobacco use status [facility] b) No [facility] Work Phone: Laboratory - Chemistry and C hemistry - challengeon 12-01-2021 Anion gap [Moles/Vol] 13 mmol/L 10 - 20 [facility] Work Phone: Calcium [Mass/Vol] 9.2 mg/dL 8.6 - 10.3 [facility] Work Phone: Chloride [Moles/Vol] 98 mmol/L 98 - 107 [facility] Work Phone: CO2 [Moles/Vol] 29 mmol/L 21 - 32 [facility] Work Phone: Creatinine [Mass/Vol] 0.88 mg/dL See Below [facility] Work Phone: Comment on above: Reference Range: 0.5 0 - 1.05 Glucose [Mass/Vol] 143 mg/dL above high threshold 74 - 99 [facility] Work Phone: [phone] Potassium [Moles/Vol] 4.0 mmol/L 3.5 - 5.3 [facility] Work Phone: [phone] Sodium [Moles/Vol] 136 mmol/L 136 - 145 [facility] Work Phone: Urea nitrogen [Mass/Vol] 20 mg/dL 6 - 23 [facility] Work Phone: No Panel Informationon 12-01 69 {mL/min/1.73m2} >90 [facility] Work Phone: Comment on above: CALCULATIONS OF HANNAH MATED GFR ARE PERFORMED USING THE 2020 CKD-EPI STUDY REFIT EQUATION WITHOUT THE RACE VARIABLE FOR THE IDMS-TRACEABLE CREATININE METHODS.https://jasn.asnjournals.org/content///A SN.8931225261 Cholesterol, Serumon 022 Cholesterol [Mass/Vol] 129 mg/dL 0 - 199 [facility] Work Phone: Comment on above: [...] Hemoglobin A1Con 09-14-2021 Glucose [Mass/Vol] 148 mg/dL [facility] Work Phone: HbA1c (Bld) [Mass fraction] 6.8 % Abnormal [facility] Work Phone: Comment on above: Diagnosis of Diabete s-Adults Non-Diabetic: < or = 5.6% Increased risk for developing diabetes: 5.7-6.4% Diagnostic of diabetes: > or = 6.5%. Monitoring of Diabetes Age (y) Therapeutic Goal (%) Adults: >18 <7.0 Pediatrics: 13-18 <7.5 7-12 <8.0 0- 6 7.5-8.5 [place] [employer]. Diabetes Care 33(S1), Apr 2009. Laboratory - Chemistry and C hemistry - challengeon 09-14-2021 Albumin BCP dye [Mass/Vol] 3.7 g/dL 3.4 - 5.0 [facility] Work Phone: ALP [Catalytic activity/Vol] 97 U/L 33 - 136 [facility] Work Phone: ALT With P-5'-P [Catalytic activity/Vol] 13 U/L 7 - 45 [facility] Work Phone: Comment on above: Patients treated wit h Sulfasalazine may generate falsely decreased results for ALT. Anion gap [Moles/Vol] 12 mmol/L 10 - 20 [facility] Work Phone: AST With P-5'-P [Catalytic activity/Vol] 15 U/L 9 - 39 [facility] Work Phone: Bilirubin [Mass/Vol] 0.3 mg/dL 0.0 - 1.2 [facility] Work Phone: Calcium [Mass/Vol] 9.1 mg/dL 8.6 - 10.3 [facility] Work Phone: Chloride [Moles/Vol] 100 mmol/L 98 - 107 [facility] Work Phone: CO2 [Moles/Vol] 29 mmol/L 21 - 32 [facility] Work Phone: Creatinine [Mass/Vol] 0.81 mg/dL See Below [facility] Work Phone: Comment on above: Reference Range: 0.5 0 - 1.05 Glucose [Mass/Vol] 96 mg/dL 74 - 99 [facility] Work Phone: Potassium [Moles/Vol] 3.1 mmol/L below low threshold 3.5 - 5.3 [facility] Work Phone: Protein [Mass/Vol] 7.0 g/dL 6.4 - 8.2 [facility] Work Phone: Sodium [Moles/Vol] 138 mmol/L 136 - 145 [facility] Work Phone: Urea nitrogen [Mass/Vol] 24 mg/dL above high threshold 6 - 23 [facility] Work Phone: Laboratory - Drug toxicology on 09-14-2021 Amphetamines Screen Ql (U) Negative NEGATIVE [facility] Work Phone: Comment on above: CUTOFF LEVEL: 500 NG /ML Cross-reactivity has been reported with high concentrations of the following drugs: buproprion, chloroquine, chlorpromazine, ephedrine, mephentermine, fenfluramine, phentermine, phenylpropanolamine, pseudoephedrine, and propranolol. Barbiturates Screen Ql (U) Negative NEGATIVE [facility] Work Phone: Comment on above: CUTOFF LEVEL: 200 NG /ML Benzodiazepines Ql (U) Negative NEGATIVE [facility] Work Phone: Comment on above: CUTOFF LEVEL: 200 NG /ML Benzoylecgonine Screen Ql (U) Negative NEGATIVE [facility] Work Phone: Comment on above: CUTOFF LEVEL: 150 NG /ML Cannabinoids Screen Ql (U) Negative NEGATIVE [facility] Work Phone: Comment on above: CUTOFF LEVEL: 50 NG/ ML Methadone Screen Ql (U) Negative NEGATIVE [facility] Work Phone: Comment on above: CUTOFF LEVEL: 150 NG /ML The metabolite V-cxdya-hhxfrspveacshp (LAAM) is not detected by this method in concentrations that would be found in the urine of patients on LAAM therapy. Opiates Screen Ql (U) Negative NEGATIVE [facility] Work Phone: Comment on above: CUTOFF LEVEL: 300 NG /ML The opiate screen does not detect fentanyl, meperidine, or tramadol. Oxycodone is not consistently detected (refer to Oxycodone Screen, Urine result). oxyCODONE+oxyMORphone Screen Ql (U) Negative NEGATIVE [facility] Work Phone: Comment on above: CUTOFF LEVEL: 100 NG /ML This test will accurately detect both oxycodone and oxymorphone. Phencyclidine Ql (U) Negative NEGATIVE [facility] Work Phone: Comment on above: CUTOFF LEVEL: 25 NG/ ML Cross-reactivity has been reported with dextromethorphan. No Panel Informationon 09-14 76 {mL/min/1.73m2} >90 [facility] Work Phone: Comment on above: CALCULATIONS OF HANNAH MATED GFR ARE PERFORMED USING THE 2020 CKD-EPI STUDY REFIT EQUATION WITHOUT THE RACE VARIABLE FOR THE IDMS-TRACEABLE CREATININE METHODS.https://jasn.asnjournals.org/content/early/A .4106295774 Negative NEGATIVE [facility] Work Phone: Comment on above: CUTOFF LEVEL: 1 NG/M L The performance characteristics of this test have been determined by the individual laboratory site where testing is performed. This test has not been cleared or approved by the FDA; however, the FDA has determined that such clearance is not necessary. SEE BELOW [facility] Work Phone: Comment on above: Drug [...] mg/dL above high threshold 0 - 149 -[facility] Work Phone: Comment on above: . AGE [...] Diabetes mellitus type 2, controlled (250.00) (E11.9) meterman prescription benzodiazepine use (V58.69) (Z79.899) Neurodermatitis (698.3) [...] INHALE 2 PUFFS EVERY 4 HOURS NEEDED intermediate prescription benzodiazepine use Drug Screen, Urine With Reflex To Confirmation; Status:Active; Requested for:01Sep2021; Medication management Follow-up visit in 3 months Outpatient Follow-up Status: Hold For - Scheduling Requested for: 01Sep2021 Home Care Referral Evaluation and Treatment Homebound, venous stasis and neurodermatitis ulcers. Blood work Status: Hold For - Scheduling Requested for: 01Sep2021 Call Results To: : [phone] if urgent Fax Results To: : [phone] Dr Mcdaniel Lab Frequency: : every 3-6 months Lab Draw Start Date: : 06Sep2021 Specific Labs To Be Drawn : CMP, cholesterol, TG, A1C ,urine drug screen Labs: Must have a SN ordered to have labs drawn : Yes Home Health Aide: Must have ordered SN, PT or ST to have SAW SETTER : No Battery [employer] Conveyor Line: Must have ordered SN, PT or ST to have DRUG AND ALCOHOL COUNSELLOR : No Occupational Therapy: Must have ordered [...] Assess, Vital Signs, Disease Teaching : Yes Snf: : Yes Date of Xbar-ch-Udbq Encounter: (Must be 90 days prior to start of care, if Telehealth must be Audio/Visual). : [id number] Homebound Status Reason: : Impaired mobility, instability, balance issues Homebound Status (Patient must be homebound if they have Medicare or commercial insurance, Not required for Medicaid) : Yes Requested Start of Care Date : >48 Hours Provider Impressions [facility] needed to draw blood and other labs [...] 11:30 AM , for a telehealth visit. [facility] certification F2F History of Present IllnessHas changed [facility] companies and needs new certification. She continues [...] insurance would like to get someone for [facility]. Has had PT, OT and SAW SETTER. She is realizing that she cannot do [...] a) No falls within the last year [facility] Work Phone: Tobacco use status [facility] b) No -[facility] Work Phone: Laboratory - Molecular patho logyon 07-25-2021 Noninvasive colorectal cancer DNA and occult blood screening Jd (Stl) [Interp] Negative Negative [facility] Work Phone: Comment on above: [employer] LABOR ATORmemory lane syndications (CLIA #:[id number])[address] [place] [address] MILLA PICHARDO , Clinical Laboratory Medical DirectorNEGATIVE [...] Judd et al, N Engl J Med 2014;370(14):3136-0160) The normal value (reference range) for this assay is negative.COLOGUARD RE-SCREENING RECOMMENDATION: Periodic colorectal cancer screening is an important part of preventive healthcare for asymptomatic individuals at average risk for colorectal cancer. Following a negative Cologuard result, the [place] [employer] and U.S. Multi-Society Task Force screening guidelines recommend a Cologuard re-screening interval of 3 years. References: [place] [employer] Guideline for Colorectal Cancer Screening: https://www.cancer.org/cancer/ayzep-rjntzf-cbzfbo/detection-casi gnosis-staging/acs-recommendations.html.; Quoc SY, Berna CR, Gaetano CHANCE, Colorectal Cancer Screening: Recommendations for Physicians and Patients from the U.S. Multi-Society Task Force on Colorectal Cancer Screening , Am J Gastroenterology 2017; 112:0909-3739.TEST DESCRIPTION: Composite algorithmic analysis of stool DNA-biomarkers [...] Delgado. et al, N Engl J Med 2014;370(14):7196-5203.) Cologuard may produce a false negative or false positive result (no colorectal cancer or precancerous polyp present at colonoscopy follow up). A negative Cologuard test result does not guarantee the absence of CRC or advanced adenoma (pre-cancer). The current Cologuard screening interval is every 3 years. ([place] [employer] and U.S. Multi-Society Task Force). Cologuard performance data in a 10,000 patient pivotal study using colonoscopy as the reference method can be accessed at the following location: www.[email or web address]/results. Additional description of the Cologuard test process, warnings and precautions can be found at [email or web address]. Laboratory - Molecular patho logyon 06-10-2021 Noninvasive colorectal cancer DNA and occult blood screening Jd (Stl) [Interp] Cancelled - Duplicate Order -[facility] Work Phone: Office Visiton 06-09-2021 Follow-up visit [...] 01:00 PM , for a telehealth visit. [employer] Adult Risk Screening Depression/Suicide Screening: During the [...] no longer. Has had PT, OT and SAW SETTER. Done with all of that. She is [...] few mon (more content not included)... Normal Gloss48 Tobacco Screening.on 022 Adult depression screening assessment Yes [facility] Work Phone: Fall risk assessment a) No falls within the last year [facility] Work Phone: Tobacco use status [facility] b) No [facility] Work Phone: Hemoglobin A1Con 06-07-2021 Glucose [Mass/Vol] 128 mg/dL [facility] Work Phone: HbA1c (Bld) [Mass fraction] 6.1 % Abnormal [facility] Work Phone: Comment on above: Diagnosis of Diabete s-Adults Non-Diabetic: < or = 5.6% Increased risk for developing diabetes: 5.7-6.4% Diagnostic of diabetes: > or = 6.5%. Monitoring of Diabetes Age (y) Therapeutic Goal (%) Adults: >18 <7.0 Pediatrics: 13-18 <7.5 7-12 <8.0 0- 6 7.5-8.5 [place] [employer]. Diabetes Care 33(S1), Apr 2009. Laboratory - Chemistry and C hemistry - challengeon 06-07-2021 Albumin BCP dye [Mass/Vol] 3.5 g/dL 3.4 - 5.0 [facility] Work Phone: ALP [Catalytic activity/Vol] 96 U/L 33 - 136 [facility] Work Phone: [phone] ALT With P-5'-P [Catalytic activity/Vol] 12 U/L 7 - 45 [facility] Work Phone: [phone] Comment on above: Patients treated wit h Sulfasalazine may generate falsely decreased results for ALT. Anion gap [Moles/Vol] 15 mmol/L 10 - 20 [facility] Work Phone: [phone] AST With P-5'-P [Catalytic activity/Vol] 17 U/L 9 - 39 [facility] Work Phone: Bilirubin [Mass/Vol] 0.3 mg/dL 0.0 - 1.2 [facility] Work Phone: Calcium [Mass/Vol] 9.3 mg/dL 8.6 - 10.3 [facility] Work Phone: Chloride [Moles/Vol] 97 mmol/L below low threshold 98 - 107 [facility] Work Phone: [phone] CO2 [Moles/Vol] 28 mmol/L 21 - 32 [facility] Work Phone: Creatinine [Mass/Vol] 0.99 mg/dL See Below [facility] Work Phone: [phone] Comment on above: Reference Range: 0.5 0 - 1.05 Glucose [Mass/Vol] 239 mg/dL above high threshold 74 - 99 [facility] Work Phone: Potassium [Moles/Vol] 4.1 mmol/L 3.5 - 5.3 [facility] Work Phone: Protein [Mass/Vol] 6.7 g/dL 6.4 - 8.2 [facility] Work Phone: Sodium [Moles/Vol] 136 mmol/L 136 - 145 [facility] Work Phone: Urea nitrogen [Mass/Vol] 22 mg/dL 6 - 23 [facility] Work Phone: Laboratory - Hematology and Cell countson 06-07-2021 Erythrocyte distribution width (RBC) [Ratio] 15.8 % above high threshold See Below [facility] Work Phone: Comment on above: Reference Range: 11. 5 - 14.5 Hematocrit (Bld) [Volume fraction] 35.8 % below low threshold See Below [facility] Work Phone: Comment on above: Reference Range: 36. 0 - 46.0 Hemoglobin (Bld) [Mass/Vol] 11.3 g/dL below low threshold See Below [facility] Work Phone: Comment on above: Reference Range: 12. 0 - 16.0 MCHC (RBC) [Mass/Vol] 31.4 g/dL below low threshold See Below [facility] Work Phone: Comment on above: Reference Range: 32. 0 - 36.0 MCV (RBC) [Entitic vol] 85 fL 80 - 100 [facility] Work Phone: Platelets (Bld) [#/Vol] 313 10*3/uL 150 - 450 [facility] Work Phone: RBC (Bld) [#/Vol] 4.23 {x10E12/L} See Below [facility] Work Phone: Comment on above: Reference Range: 4.0 0 - 5.20 WBC (Bld) [#/Vol] 13.8 10*3/uL above high threshold 4.4 - 11.3 [facility] Work Phone: Lipid Panelon 06-07-2021 Cholesterol [Mass/Vol] 193 mg/dL 0 - 199 [facility] Work Phone: Comment on above: [...] dosing. Cholesterol in HDL [Mass/Vol] 45.0 mg/dL [facility] Work Phone: Comment on above: . AGE VERY LOW LOW N ORMAL HIGH 0-19 Y < 35 < 40 40-45 ---- 20-24 Y ---- < 40 >45 ---- >24 Y ---- < 40 40-60 >60. Cholesterol in LDL [Mass/Vol] 108 mg/dL above high threshold 0 - 99 [facility] Work Phone: Comment on above: . NEAR BORD AGE TESS RABLE OPTIMAL HIGH HIGH VERY HIGH 0-19 Y 0 - 109 --- 110-129 >/= 130 ---- 20-24 Y 0 - 119 --- 120-159 >/= 160 ---- >24 Y 0 - 99 100-129 130-159 160-189 >/=190. Cholesterol.total/Chol esterol in HDL [Mass ratio] 4.3 {ratio} [facility] Work Phone: Comment on above: REF VALUESDESIRABLE < 3.4HIGH RISK > 5.0 Triglyceride [Mass/Vol] 198 mg/dL above high threshold 0 - 149 [facility] Work Phone: Comment on above: . AGE [...] Lipid Panel 40 mg/dL 0 - 40 [facility] Work Phone: No Panel Informationon 06-07 60 {mL/min/1.73m2} >90 [facility] Work Phone: Comment on above: CALCULATIONS OF HANNAH MATED GFR ARE PERFORMED USING THE 2020 CKD-EPI STUDY REFIT EQUATION WITHOUT THE RACE VARIABLE FOR THE IDMS-TRACEABLE CREATININE METHODS.https://jasn.asnjournals.org/content///A SN.0581652004 Vitamin B12, Serumon 022 Cobalamin (Vitamin B12) [Mass/Vol] 697 pg/mL 211 - 911 [facility] Work Phone: Vitamin D 25-Hydroxyon 06-07 25-hydroxyvitamin D3 [Mass/Vol] 30 ng/mL [facility] Work Phone: Comment on above: .DEFICIENCY: < 20 NG /MLINSUFFICIENCY: 20-29 NG/MLSUFFICIENCY: 30-100 NG/MLTHIS ASSAY ACCURATELY QUANTIFIES THE SUM OFVITAMIN D3, 25-HYDROXY AND VIT D2,25-HYDROXY. Laboratory - Chemistry and C hemistry - challengeon 02-04-2021 Creatinine (Body fld) [Mass/Vol] 65.0 mg/dL [facility] Work Phone: Comment on above: A urine creatinine r esult >= 20 mg/dL is considered valid without suspicion of dilution. Samples with results below this range will automatically reflex to specific gravity testing to verify specimen integrity. Laboratory - Drug toxicology on 02-04-2021 1-Hydroxymidazolam Confirm (U) [Mass/Vol] <25 Cutoff <25 [facility] Work Phone: 6-Qmgthddkrd-9,5-Dimet hyl-3,3-Diphenylpyrrol idine (EDDP) Confirm (U) [Mass/Vol] <25 Cutoff <25 [facility] Work Phone: Comment on [...] (6-EDDIE) Confirm (U) [Mass/Vol] <25 Cutoff <25 [facility] Work Phone: 7-Aminoclonazepam Confirm (U) [Mass/Vol] <25 Cutoff <25 [facility] Work Phone: Alpha hydroxyalprazolam Confirm (U) [Mass/Vol] <25 Cutoff <25 [facility] Work Phone: ALPRAZolam Confirm (U) [Mass/Vol] <25 Cutoff <25 [facility] Work Phone: Amphetamines Screen Ql (U) Negative NEGATIVE [facility] Work Phone: Comment on above: CUTOFF LEVEL: 500 NG /ML Cross-reactivity has been reported with high concentrations of the following drugs: buproprion, chloroquine, chlorpromazine, ephedrine, mephentermine, fenfluramine, phentermine, phenylpropanolamine, pseudoephedrine, and propranolol. Barbiturates Screen Ql (U) Negative NEGATIVE [facility] Work Phone: Comment on above: CUTOFF LEVEL: 200 NG /ML Benzoylecgonine Screen Ql (U) Negative NEGATIVE [facility] Work Phone: Comment on above: CUTOFF LEVEL: 150 NG /ML Cannabinoids Screen Ql (U) Positive Abnormal NEGATIVE [facility] Work Phone: Comment on above: CUTOFF LEVEL: 50 NG/ ML Carboxy tetrahydrocannabinol (U) [Mass/Vol] >500 [facility] Work Phone: Comment on above: INTERPRETIVE INFORMA TION: THC Metabolite, Urine, QuantitativeMethodology: Quantitative Liquid Chromatography-Tandem Mass SpectrometryPositive cutoff: 15 ng/mLFor medical purposes only; not valid for forensic use.The drug analyte detected in this assay, 9-carboxy THC, is a metabolite of ldbug-1-sgxlttnwdcmmnwkhpuvb (THC). Detection of 9-carboxy THC suggests use [...] developed and its performance characteristics determined by [facility]. It has not been cleared or approved by the [place] Food and Drug Administration. This test was performed in a CLIA certified laboratory and is intended for clinical purposes.Performed By: [facility] [place] [id number] Director: Pearl Deng MD [email or web address] Confirm (U) [Mass/Vol] <25 Cutoff <25 [facility] Work Phone: clonazePAM Confirm (U) [Mass/Vol] <25 Cutoff <25 [facility] Work Phone: Codeine Confirm (U) [Mass/Vol] <50 Cutoff <50 [facility] Work Phone: diazePAM Confirm (U) [Mass/Vol] <25 Cutoff <25 [facility] Work Phone: fentaNYL Confirm (U) [Mass/Vol] <2.5 Cutoff<2.5 [facility] Work Phone: HYDROcodone Confirm (U) [Mass/Vol] <25 Cutoff <25 [facility] Work Phone: HYDROmorphone Confirm (U) [Mass/Vol] <25 Cutoff <25 [facility] Work Phone: LORazepam Confirm (U) [Mass/Vol] 544 ng/mL Abnormal Cutoff <25 [facility] Work Phone: Comment on above: Consistent with use of a drug containing lorazepam, such as Ativan. Methadone Confirm (U) [Mass/Vol] <25 Cutoff <25 [facility] Work Phone: Midazolam Confirm (U) [Mass/Vol] <25 Cutoff <25 [facility] Work Phone: Morphine Confirm (U) [Mass/Vol] <50 Cutoff <50 [facility] Work Phone: Nordiazepam Confirm (U) [Mass/Vol] <25 Cutoff <25 [facility] Work Phone: Norfentanyl Confirm (U) [Mass/Vol] <2.5 Cutoff<2.5 [facility] Work Phone: Comment on above: The performance [...] Norhydrocodone Confirm (U) [Mass/Vol] <25 Cutoff <25 [facility] Work Phone: Noroxycodone Confirm (U) [Mass/Vol] <25 Cutoff <25 [facility] Work Phone: Nortramadol (U) [Mass/Vol] <50 Cutoff <50 [facility] Work Phone: Comment on above: The performance [...] Oxazepam Confirm (U) [Mass/Vol] <25 Cutoff <25 [facility] Work Phone: oxyCODONE Confirm (U) [Mass/Vol] <25 Cutoff <25 [facility] Work Phone: oxyMORphone Confirm (U) [Mass/Vol] <25 Cutoff <25 [facility] Work Phone: Comment on above: The performance [...] laboratory testing. Phencyclidine Ql (U) Negative NEGATIVE [facility] Work Phone: Comment on above: CUTOFF LEVEL: 25 NG/ ML Cross-reactivity has been reported with dextromethorphan. Temazepam Confirm (U) [Mass/Vol] <25 Cutoff <25 [facility] Work Phone: Comment on [...] traMADol Confirm (U) [Mass/Vol] <50 Cutoff <50 [facility] Work Phone: Zolpidem (U) [Mass/Vol] <25 Cutoff <25 [facility] Work Phone: No Panel Informationon 02-04 SEE BELOW [facility] Work Phone: Comment on above: Drug [...] the laboratory medical directors. <25 Cutoff <25 [facility] Work Phone: Comment on [...] more fall s in the last year [facility] Work Phone: Tobacco use status CPHS b) No [facility] Work Phone: Laboratory - Molecular patho logyon 11-05-2020 Noninvasive colorectal cancer DNA and occult blood screening Jd (Stl) [Interp] Cancelled - Duplicate Order [facility] Work Phone: Tobacco Screening.on 021 Fall risk assessment b) One or more fall s in the last year [facility] Work Phone: Tobacco use status CPHS b) No [facility] Work Phone: Tobacco Screening.on 021 Fall risk assessment b) One or more fall s in the last year [facility] Work Phone: Tobacco use status CPHS b) No [facility] Work Phone: HEMOGLOBIN A1Con 10-21-2020 Glucose [Mass/Vol] 143 mg/dL Normal [facility] Comment on above: Performed By: #### H BA1E #### [facility] [address] [place] [address] HbA1c (Bld) [Mass fraction] 6.6 % Normal [facility] Comment on above: Result Comment: Diag nosis of Diabetes-Adults Non-Diabetic: < or = 5.6% Increased risk for developing diabetes: 5.7-6.4% Diagnostic of diabetes: > or = 6.5% . Monitoring of Diabetes Age (y) Therapeutic Goal (%) Adults: >18 <7.0 Pediatrics: 13-18 <7.5 7-12 <8.0 0- 6 7.5-8.5 [place] [employer]. Diabetes Care 33(S1), Apr 2009. Performed By: #### H BA1E #### [facility] [address] [place] [address] CBCon 10-20-2020 Erythrocyte distribution width (RBC) [Ratio] 15.2 % High 11.5 - 14.5 [facility] Comment on above: Performed By: #### C BC #### [address] [id number] Hematocrit (Bld) [Volume fraction] 42.4 % Normal 36.0 - 46.0 [facility] Comment on above: Performed By: #### C BC #### [address] [id number] Hemoglobin (Bld) [Mass/Vol] 12.8 g/dL Normal 12.0 - 16.0 [facility] Comment on above: Performed By: #### C BC #### [address] [id number] MCHC (RBC) [Mass/Vol] 30.2 g/dL Low 32.0 - 36.0 [facility] Comment on above: Performed By: #### C BC #### [address] [id number] MCV (RBC) [Entitic vol] 85 fL Normal 80 - 100 [facility] Comment on above: Performed By: #### C BC #### [address] [id number] Platelets (Bld) [#/Vol] 306 10*3/uL Normal 150 - 450 [facility] Comment on above: Performed By: #### C BC #### [address] [id number] RBC 4.97 x10E12/L Normal 4.00 - 5.20 [facility] Comment on above: Performed By: #### C BC #### [address] [id number] WBC (Bld) [#/Vol] 12.9 10*3/uL High 4.4 - 11.3 [facility] Comment on above: Performed By: #### C BC #### [address] [id number] Hemoglobin A1Con 10-20-2020 Glucose [Mass/Vol] 143 mg/dL [facility] Work Phone: HbA1c (Bld) [Mass fraction] 6.6 % [facility] Work Phone: Comment on above: Diagnosis of Diabete s-Adults Non-Diabetic: < or = 5.6% Increased risk for developing diabetes: 5.7-6.4% Diagnostic of diabetes: > or = 6.5%. Monitoring of Diabetes Age (y) Therapeutic Goal (%) Adults: >18 <7.0 Pediatrics: 13-18 <7.5 7-12 <8.0 0- 6 7.5-8.5 [place] [employer]. Diabetes Care 33(S1), Apr 2009. Laboratory - Hematology and Cell countson 10-20-2020 Erythrocyte distribution width (RBC) [Ratio] 15.2 % above high threshold See Below [facility] Work Phone: Comment on above: Reference Range: 11. 5 - 14.5 Hematocrit (Bld) [Volume fraction] 42.4 % See Below [facility] Work Phone: Comment on above: Reference Range: 36. 0 - 46.0 Hemoglobin (Bld) [Mass/Vol] 12.8 g/dL See Below [facility] Work Phone: [phone] Comment on above: Reference Range: 12. 0 - 16.0 MCHC (RBC) [Mass/Vol] 30.2 g/dL below low threshold See Below [facility] Work Phone: [phone] Comment on above: Reference Range: 32. 0 - 36.0 MCV (RBC) [Entitic vol] 85 fL 80 - 100 [facility] Work Phone: [phone] Platelets (Bld) [#/Vol] 306 10*3/uL 150 - 450 [facility] Work Phone: [phone] RBC (Bld) [#/Vol] 4.97 {x10E12/L} See Below [facility] Work Phone: Comment on above: Reference Range: 4.0 0 - 5.20 WBC (Bld) [#/Vol] 12.9 10*3/uL above high threshold 4.4 - 11.3 [facility] Work Phone: MAGNESIUMon 10-20-2020 Magnesium [Mass/Vol] 1.50 mg/dL Low 1.60 - 2.40 [facility] Comment on above: Performed By: #### M G #### [address] [id number] Magnesium, Serumon Magnesium [Mass/Vol] 1.50 mg/dL below low threshold See Below [facility] Work Phone: Comment on above: Reference Range: 1.6 0 - 2.40 RENAL FUNCTION PANELon 10-20 Albumin [Mass/Vol] 4.0 g/dL Normal 3.4 - 5.0 [facility] Comment on above: Performed By: #### R ENAL #### [address] [id number] Anion gap [Moles/Vol] 14 mmol/L Normal 10 - 20 [facility] Comment on above: Performed By: #### R ENAL #### [address] [id number] Calcium [Mass/Vol] 9.4 mg/dL Normal 8.6 - 10.3 [facility] Comment on above: Performed By: #### R ENAL #### [address] [id number] Chloride [Moles/Vol] 98 mmol/L Normal 98 - 107 [facility] Comment on above: Performed By: #### R ENAL #### [address] [id number] Creatinine [Mass/Vol] 0.97 mg/dL Normal 0.50 - 1.05 [facility] Comment on above: Performed By: #### R ENAL #### [address] [id number] GFR- AM. 68 mL/min/1.73m2 Normal >60 [facility] Comment on above: Result Comment: CALC ULATIONS OF ESTIMATED GFR ARE PERFORMED USING THE MDRD STUDY EQUATION FOR THE IDMS-TRACEABLE CREATININE METHODS. CLIN CHEM 2007;53:766-72 Performed By: #### R ENAL #### [address] [id number] GFR-NON AM. 56 mL/min/1.73m2 Abnormal >60 [facility] Comment on above: Performed By: #### R ENAL #### [address] [id number] Glucose [Mass/Vol] 79 mg/dL Normal 74 - 99 [facility] Comment on above: Performed By: #### R ENAL #### [address] [id number] HCO3 (Bld) [Moles/Vol] 30 mmol/L Normal 21 - 32 [facility] Comment on above: Performed By: #### R ENAL #### [address] [id number] Phosphate [Mass/Vol] 3.3 mg/dL Normal 2.5 - 4.9 [facility] Comment on above: Result Comment: The performance characteristics of phosphorus testing in heparinized plasma have been validated by the individual laboratory site where testing is performed. Testing on heparinized plasma is not approved by the FDA; however, such approval is not necessary. Performed By: #### R ENAL #### [facility] [address] [place], [place] [id number] Potassium [Moles/Vol] 4.2 mmol/L Normal 3.5 - 5.3 [facility] Comment on above: Performed By: #### R ENAL #### [facility] [address] [place], [place] [id number] Sodium [Moles/Vol] 138 mmol/L Normal 136 - 145 [facility] Comment on above: Performed By: #### R ENAL #### [facility] [address] [place], [place] [id number] Urea nitrogen [Mass/Vol] 20 mg/dL Normal 6 - 23 [facility] Comment on above: Performed By: #### R ENAL #### [facility] [address] [place], [place] [id number] Renal Function Panelon 10-20 Albumin BCP dye [Mass/Vol] 4.0 g/dL 3.4 - 5.0 [facility] Work Phone: Anion gap [Moles/Vol] 14 mmol/L 10 - 20 [facility] Work Phone: Calcium [Mass/Vol] 9.4 mg/dL 8.6 - 10.3 [facility] Work Phone: Chloride [Moles/Vol] 98 mmol/L 98 - 107 [facility] Work Phone: CO2 [Moles/Vol] 30 mmol/L 21 - 32 [facility] Work Phone: Creatinine [Mass/Vol] 0.97 mg/dL See Below [facility] Work Phone: Comment on above: Reference Range: 0.5 0 - 1.05 Glucose [Mass/Vol] 79 mg/dL 74 - 99 [facility] Work Phone: Phosphate [Mass/Vol] 3.3 mg/dL 2.5 - 4.9 [facility] Work Phone: Comment on above: The performance klaus acteristics of phosphorus testing in heparinized plasma have been validated by the individual laboratory site where testing is performed. Testing on heparinized plasma is not approved by the FDA; however, such approval is not necessary. Potassium [Moles/Vol] 4.2 mmol/L 3.5 - 5.3 [facility] Work Phone: Sodium [Moles/Vol] 138 mmol/L 136 - 145 [facility] Work Phone: Urea nitrogen [Mass/Vol] 20 mg/dL 6 - 23 [facility] Work Phone: Renal Function Panel 68 {mL/min/1.73m2} >60 [facility] Work Phone: Comment on above: CALCULATIONS OF HANNAH MATED GFR ARE PERFORMED USING THE MDRD STUDY EQUATION FOR THE IDMS-TRACEABLE CREATININE METHODS. CLIN CHEM 2007;53:766-72 Renal Function Panel 56 {mL/min/1.73m2} Abnormal >60 [facility] Work Phone: VITAMIN D, 25-HYDROXYon 10-07 VITAMIN D, 25-HYDROXY 20 ng/mL Abnormal [facility] Comment on above: Result Comment: . DEFICIENCY: < 20 NG/ML INSUFFICIENCY: 20-29 NG/ML SUFFICIENCY: 30-100 NG/ML THIS ASSAY ACCURATELY QUANTIFIES THE SUM OF VITAMIN D3, 25-HYDROXY AND VIT D2,25-HYDROXY. Performed By: #### V TDOH #### [address] [id number] Vitamin D 25-Hydroxyon 10-20 25-hydroxyvitamin D3 [Mass/Vol] 20 ng/mL Abnormal [facility] Work Phone: Comment on above: .DEFICIENCY: < 20 NG /MLINSUFFICIENCY: 20-29 NG/MLSUFFICIENCY: 30-100 NG/MLTHIS ASSAY ACCURATELY QUANTIFIES THE SUM OFVITAMIN D3, 25-HYDROXY AND VIT D2,25-HYDROXY. Tobacco Screening.on 021 Fall risk assessment b) One or more fall s in the last year [facility] Work Phone: Tobacco use status CPHS b) No [facility] Work Phone: Metabolic Panelon 12-08-2019 Anion gap [Moles/Vol] 13 mmol/L 10 - 20 [facility] [place] [address] DO Work Phone: Calcium [Mass/Vol] 9.1 mg/dL 8.6 - 10.3 [facility] [place] [place] [address] DO Work Phone: Chloride [Moles/Vol] 99 mmol/L 98 - 107 [facility] [place] [place] [address] DO Work Phone: CO2 [Moles/Vol] 26 mmol/L 21 - 32 [facility] [place] [address] DO Work Phone: Creatinine [Mass/Vol] 1.14 mg/dL above high threshold See Below [facility] [place] [address] DO Work Phone: Comment on above: Reference Range: 0.5 0 - 1.05 Glucose [Mass/Vol] 153 mg/dL above high threshold 74 - 99 [facility] [place] [address] DO Work Phone: Potassium [Moles/Vol] 3.8 mmol/L 3.5 - 5.3 [facility] [place] [address] DO Work Phone: Sodium [Moles/Vol] 134 mmol/L below low threshold 136 - 145 [facility] [place] [address] DO Work Phone: Urea nitrogen [Mass/Vol] 32 mg/dL above high threshold 6 - 23 [facility] [address] DO Work Phone: Otheron 12-08-2019 57 {mL/min/1.73m2} Abnormal >60 [facility] [place] [address] DO Work Phone: Comment on above: CALCULATIONS OF HANNAH MATED GFR ARE PERFORMED USING THE MDRD STUDY EQUATION FOR THE IDMS-TRACEABLE CREATININE METHODS. CLIN CHEM 2007;53:766-72 47 {mL/min/1.73m2} Abnormal >60 [facility] [place] [address] DO Work Phone: US Kidney - bilateral Please click on th e link to view the study images Normal -[facility] [address] DO Work Phone: Total Protein, Urine Spoton 12-08-2019 Creatinine (U) [Mass/Vol] 162.0 mg/dL See Below -[facility] [place] [address] DO Work Phone: Comment on above: Reference Range: 20. 0 - 320.0 Protein (U) [Mass/Vol] 44 mg/dL above hig h threshold 5 - 24 -[facility] [place] [address] DO Work Phone: Protein/Creatinine (U) [Ratio] 0.27 {mg/mg_Creat} above high threshold See Below -[place] [address] DO Work Phone: Comment on above: Reference Range: 0.0 0 - 0.17 Uric Acid, Serumon 0 Urate [Mass/Vol] 8.6 mg/dL above high threshold 2.3 - 6.7 [facility] [place] [address] DO Work Phone: Comment on above: Venipuncture immedia tely after or during the administration of Metamizole may lead to falsely low results. Testing should be performed immediately prior to Metamizole dosing. Urinalysison 12-08-2019 Appearance (U) HAZY CLEAR [facility] 3 DO Work Phone: [phone] Color (U) Yellow See Below [facility] 3 DO Work Phone: [phone] Comment on above: Reference Range: STR AW,YELLOW Glucose Ql (U) Negative NEGATIVE [facility] 3 DO Work Phone: [phone] Ketones Ql (U) Negative NEGATIVE [facility] 3 DO Work Phone: [phone] Leukocyte esterase Test strip Ql (U) TRACE Abnormal NEGATIVE [facility] 3 DO Work Phone: [phone] pH (U) 5.0 [pH] 5.0 - 8.0 [facility] 3 DO Work Phone: [phone] Protein (U) [Mass/Vol] 30(1+) Abnormal NEGATIVE [facility] [address] DO Work Phone: [phone] RBC (U) [#/Vol] Negative NEGATIVE [facility] [place] [address] DO Work Phone: [phone] Specific gravity (U) [Rel density] 1.018 See Below [facility] 3 DO Work Phone: [phone] Comment on above: Reference Range: 1.0 05 - 1.035 Urinalysis Negative NEGATIVE [facility] 3 DO Work Phone: [phone] Urinalysis <2.0 0.0 - 1.9 [facility] 3 DO Work Phone: Urinalysis, Microscopicon Urinalysis, Microscopic 3+ Abnormal [facility] 3 DO Work Phone: Urinalysis, Microscopic 4 {/HPF} 0-5 [facility] 3 DO Work Phone: [phone] Urinalysis, Microscopic 1 {/HPF} 0-5 [facility] 3 DO Work Phone: Urinalysis, Microscopic 9 {/HPF} [facility] 3 DO Work Phone: Urinalysis, Microscopic 1+ [facility] 3 DO Work Phone: Hemoglobin A1Con 10-30-2019 HbA1c (Bld) [Mass fraction] 128 {MG/DL} [facility] Work Phone: HbA1c (Bld) [Mass fraction] 6.1 % [facility] Work Phone: Comment on above: Diagnosis of Diabete s-Adults Non-Diabetic: < or = 5.6% Increased risk for developing diabetes: 5.7-6.4% Diagnostic of diabetes: > or = 6.5%. Monitoring of Diabetes Age (y) Therapeutic Goal (%) Adults: >18 <7.0 Pediatrics: 13-18 <7.5 7-12 <8.0 0- 6 7.5-8.5 [place] [employer]. Diabetes Care 33(S1), Apr 2009. Metabolic Panelon 10-30-2019 Anion gap [Moles/Vol] 12 mmol/L 10 - 20 [facility] Work Phone: Calcium [Mass/Vol] 9.2 mg/dL 8.6 - 10.3 [facility] Work Phone: Chloride [Moles/Vol] 103 mmol/L 98 - 107 [facility] Work Phone: CO2 [Moles/Vol] 26 mmol/L 21 - 32 [facility] Work Phone: Creatinine [Mass/Vol] 1.36 mg/dL above high threshold See Below [facility] Work Phone: Comment on above: Reference Range: 0.5 0 - 1.05 Glucose [Mass/Vol] 148 mg/dL above high threshold 74 - 99 [facility] Work Phone: Potassium [Moles/Vol] 3.9 mmol/L 3.5 - 5.3 [facility] Work Phone: Sodium [Moles/Vol] 137 mmol/L 136 - 145 [facility] Work Phone: Urea nitrogen [Mass/Vol] 27 mg/dL above high threshold 6 - 23 [facility] Work Phone: Otheron 10-30-2019 1-Hydroxymidazolam Confirm (U) [Mass/Vol] <25 Cutoff <25 [facility] Work Phone: 7-Olrtaevrgs-5,5-Dimet hyl-3,3-Diphenylpyrrol idine (EDDP) Confirm (U) [Mass/Vol] <25 Cutoff <25 [facility] Work Phone: Comment on above: The [...] (6-EDDIE) Confirm (U) [Mass/Vol] <25 Cutoff <25 [facility] Work Phone: 7-Aminoclonazepam Confirm (U) [Mass/Vol] <25 Cutoff <25 [facility] Work Phone: Alpha hydroxyalprazolam Confirm (U) [Mass/Vol] <25 Cutoff <25 [facility] Work Phone: Alprazolam Confirm (U) [Mass/Vol] <25 Cutoff <25 [facility] Work Phone: Amphetamines Screen Ql (U) Negative NEGATIVE [facility] Work Phone: Comment on above: CUTOFF LEVEL: 500 NG /ML Cross-reactivity has been reported with high concentrations of the following drugs: buproprion, chloroquine, chlorpromazine, ephedrine, mephentermine, fenfluramine, phentermine, phenylpropanolamine, pseudoephedrine, and propranolol. Benzoylecgonine Screen Ql (U) Negative NEGATIVE [facility] Work Phone: Comment on above: CUTOFF LEVEL: 150 NG /ML Chlordiazepoxide Confirm (U) [Mass/Vol] <25 Cutoff <25 [facility] Work Phone: Clonazepam Confirm (U) [Mass/Vol] <25 Cutoff <25 [facility] Work Phone: Codeine Confirm (U) [Mass/Vol] <50 Cutoff <50 [facility] Work Phone: Creatinine (Body fld) [Mass/Vol] 92.6 mg/dL [facility] Work Phone: Comment on above: A urine creatinine r esult >= 20 mg/dL is considered valid without suspicion of dilution. Samples with results below this range will automatically reflex to specific gravity testing to verify specimen integrity. Diazepam Confirm (U) [Mass/Vol] <25 Cutoff <25 [facility] Work Phone: Fentanyl Confirm (U) [Mass/Vol] <2.5 Cutoff<2.5 [facility] Work Phone: Hydrocodone Confirm (U) [Mass/Vol] <25 Cutoff <25 [facility] Work Phone: Hydromorphone Confirm (U) [Mass/Vol] <25 Cutoff <25 [facility] Work Phone: Lorazepam Confirm (U) [Mass/Vol] 696 ng/mL Abnormal Cutoff <25 [facility] Work Phone: Comment on above: Consistent with use of a drug containing lorazepam, such as Ativan. Methadone Confirm (U) [Mass/Vol] <25 Cutoff <25 [facility] Work Phone: Midazolam Confirm (U) [Mass/Vol] <25 Cutoff <25 [facility] Work Phone: Morphine Confirm (U) [Mass/Vol] <50 Cutoff <50 [facility] Work Phone: Nordiazepam Confirm (U) [Mass/Vol] <25 Cutoff <25 [facility] Work Phone: Norfentanyl Confirm (U) [Mass/Vol] <2.5 Cutoff<2.5 [facility] Work Phone: Comment on above: The [...] Confirm (U) [Mass/Vol] <25 Cutoff <25 [facility] Work Phone: Noroxycodone Confirm (U) [Mass/Vol] <25 Cutoff <25 [facility] Work Phone: Nortramadol (U) [Mass/Vol] <50 Cutoff <50 [facility] Work Phone: Comment on above: The [...] Confirm (U) [Mass/Vol] <25 Cutoff <25 [facility] Work Phone: Oxycodone Confirm (U) [Mass/Vol] <25 Cutoff <25 [facility] Work Phone: Oxymorphone Confirm (U) [Mass/Vol] <25 Cutoff <25 [facility] Work Phone: Comment on above: The [...] Temazepam Confirm (U) [Mass/Vol] <25 Cutoff <25 [facility] Work Phone: Comment on above: The [...] Tramadol Confirm (U) [Mass/Vol] <50 Cutoff <50 [facility] Work Phone: Zolpidem (U) [Mass/Vol] <25 Cutoff <25 [facility] Work Phone: SEE BELOW [facility] Work Phone: Comment on above: Drug [...] the laboratory medical directors. <25 Cutoff <25 [facility] Work Phone: Comment on above: The [...] clinical laboratory testing. 46 {mL/min/1.73m2} Abnormal >60 [facility] Work Phone: Comment on above: CALCULATIONS OF HANNAH MATED GFR ARE PERFORMED USING THE MDRD STUDY EQUATION FOR THE IDMS-TRACEABLE CREATININE METHODS. CLIN CHEM 2007;53:766-72 38 {mL/min/1.73m2} Abnormal >60 [facility] Work Phone: Urinalysison 10-30-2019 Barbiturates Screen Ql (U) Negative NEGATIVE [facility] Work Phone: Comment on above: CUTOFF LEVEL: 200 NG /ML Cannabinoids Screen Ql (U) Negative NEGATIVE [facility] Work Phone: Comment on above: CUTOFF LEVEL: 50 NG/ ML Phencyclidine Ql (U) Negative NEGATIVE [facility] Work Phone: Comment on above: CUTOFF LEVEL: 25 NG/ ML Cross-reactivity has been reported with dextromethorphan. Vitamin B12, Serumon 020 Cobalamin (Vitamin B12) [Mass/Vol] 307 pg/mL 211 - 911 [facility] Work Phone: Vitamin D 25-Hydroxyon 10-29 Calcidiol [Mass/Vol] 15 ng/mL Abnormal [facility] Work Phone: Comment on above: .DEFICIENCY: < 20 NG /MLINSUFFICIENCY: 20-29 NG/MLSUFFICIENCY: 30-100 NG/MLTHIS ASSAY ACCURATELY QUANTIFIES THE SUM OFVITAMIN D3, 25-HYDROXY AND VIT D2,25-HYDROXY. Mamm - Screening Mammogram w / Tomosynthesison 02-14-2019 MG Breast screening Interpreted by: MERNA JIMENEZ02/16/19 17:42MRN: [id number] Name: DARYN SHAH STUDY:DIGITAL MAMM SCREENING W/ [...] any future breast imaging appointments, please call [phone]). Electronically signed by: CIARAN JIMENEZ 02/16/19 17:42 Normal [facility] Work Phone: MG Breast screening Please click on the link to view the study images Normal [facility] Work Phone: Hematologyon 02-05-2019 Hematocrit (Bld) [Volume fraction] 38.4 % See Below [facility] Work Phone: Comment on above: Reference Range: 36. 0 - 46.0 Hemoglobin (Bld) [Mass/Vol] 12.5 g/dL See Below [facility] Work Phone: Comment on above: Reference Range: 12. 0 - 16.0 MCV (RBC) [Entitic vol] 88 fL 80 - 100 [facility] Work Phone: Platelets (Bld) [#/Vol] 274 {x10E9/L} 150 - 450 [facility] Work Phone: RBC (Bld) [#/Vol] 4.35 {x10E12/L} See Below [facility] Work Phone: Comment on above: Reference Range: 4.0 0 - 5.20 WBC (Bld) [#/Vol] 12.2 {x10E9/L} above high threshold 4.4 - 11.3 [facility] Work Phone: Hemoglobin A1Con 02-05-2019 HbA1c (Bld) [Mass fraction] 6.2 % [facility] Work Phone: Comment on above: Diagnosis of Diabete s-Adults Non-Diabetic: < or = 5.6% Increased risk for developing diabetes: 5.7-6.4% Diagnostic of diabetes: > or = 6.5%. Monitoring of Diabetes Age (y) Therapeutic Goal (%) Adults: >18 <7.0 Pediatrics: 13-18 <7.5 7-12 <8.0 0- 6 7.5-8.5 [place] [employer]. Diabetes Care 33(S1), Apr 2009. HbA1c (Bld) [Mass fraction] 131 {MG/DL} [facility] Work Phone: Metabolic Panelon 02-05-2019 ALP [Catalytic activity/Vol] 118 U/L 33 - 136 [facility] Work Phone: Anion gap [Moles/Vol] 16 mmol/L 10 - 20 [facility] Work Phone: Bilirubin [Mass/Vol] 0.5 mg/dL 0.0 - 1.2 [facility] Work Phone: Calcium [Mass/Vol] 9.2 mg/dL 8.6 - 10.3 [facility] Work Phone: Chloride [Moles/Vol] 98 mmol/L 98 - 107 [facility] Work Phone: CO2 [Moles/Vol] 29 mmol/L 21 - 32 [facility] Work Phone: [phone] Creatinine [Mass/Vol] 1.05 mg/dL See Below [facility] Work Phone: [phone] Comment on above: Reference Range: 0.5 0 - 1.05 Glucose [Mass/Vol] 120 mg/dL above high threshold 74 - 99 [facility] Work Phone: Potassium [Moles/Vol] 4.2 mmol/L 3.5 - 5.3 [facility] Work Phone: Protein [Mass/Vol] 7.2 g/dL 6.4 - 8.2 [facility] Work Phone: Sodium [Moles/Vol] 139 mmol/L 136 - 145 [facility] Work Phone: Urea nitrogen [Mass/Vol] 19 mg/dL 6 - 23 [facility] Work Phone: Otheron 02-05-2019 Albumin BCP dye [Mass/Vol] 4.1 g/dL 3.4 - 5.0 [facility] Work Phone: ALT With P-5'-P [Catalytic activity/Vol] 12 U/L 7 - 45 [facility] Work Phone: Comment on above: Patients treated wit h Sulfasalazine may generate falsely decreased results for ALT. AST With P-5'-P [Catalytic activity/Vol] 18 U/L 9 - 39 [facility] Work Phone: Erythrocyte distribution width (RBC) [Ratio] 15.7 % above high threshold See Below [facility] Work Phone: Comment on above: Reference Range: 11. 5 - 14.5 MCHC (RBC) [Mass/Vol] 32.5 g/dL See Below [facility] Work Phone: Comment on above: Reference Range: 32. 0 - 36.0 63 {mL/min/1.73m2} >60 [facility] Work Phone: Comment on above: CALCULATIONS OF HANNAH MATED GFR ARE PERFORMED USING THE MDRD STUDY EQUATION FOR THE IDMS-TRACEABLE CREATININE METHODS. CLIN CHEM 2007;53:766-72 52 {mL/min/1.73m2} Abnormal >60 [facility] Work Phone: 4 1 [facility] Work Phone: Comment on above: Age: 73 YearsSex: FC ongestive Heart Failure: NoHypertension: YesStroke/TIA/Thromboembolism: NoVascular Disease: NoDiabetes Mellitus: Yes Moderate-High [facility] Work Phone: Comment on above: Age: 73 YearsSex: FC ongestive Heart Failure: NoHypertension: YesStroke/TIA/Thromboembolism: NoVascular Disease: NoDiabetes Mellitus: Yes 2.2 % [facility] Work Phone: Comment on above: Age: 73 YearsSex: FC ongestive Heart Failure: NoHypertension: YesStroke/TIA/Thromboembolism: NoVascular Disease: NoDiabetes Mellitus: Yes 4.8 % [facility] Work Phone: Comment on above: Age: 73 YearsSex: FC ongestive Heart Failure: NoHypertension: YesStroke/TIA/Thromboembolism: NoVascular Disease: NoDiabetes Mellitus: Yes Thyroidon 02-05-2019 TSH Qn 3.72 {mIU/L} See Below [facility] Work Phone: Comment on above: Reference Range: 0.4 4 - 3.98 TSH testing is performed using different testing methodology at [facility] than at other [facility]. Direct result comparisons should only be made within the same method. CMPon 11-05-2018 Albumin [Mass/Vol] 4.1 g/dL Normal 3.4-5.0 [facility] Comment on above: Performed By: #### 2 [id number] #### ARIANNA [employer] [address] [place] [address] 22611 Albumin/Globulin [Mass ratio] 1.1 {ratio} Normal 1.1-1.9 [facility] Comment on above: Performed By: #### 2 [id number] #### ARIANNA [employer] [address] [place] [address] 03820 Alk Phos 113 Int._Unit/L Normal 33-136 [facility] Comment on above: Performed By: #### 2 [id number] #### ARI[employer]NA [employer] [address] [place] [address] 00716 ALT [Catalytic activity/Vol] 11 Int._Unit/L Normal 7-45 [facility] Comment on above: Performed By: #### 2 [id number] #### [employer] [address] [place] [address] 70993 Anion gap [Moles/Vol] 17 mmol/L Normal 10-20 [facility] Comment on above: Performed By: #### 2 [id number] #### ARI[employer]NA [employer] [address] [place] [address] 68108 AST [Catalytic activity/Vol] 15 Int._Unit/L Normal 9-39 [facility] Comment on above: Performed By: #### 2 [id number] #### ARI[employer]NA [employer] [address] [place] [address] 38650 Bili Total 0.55 mg/dL Normal 0.00-1.20 [facility] Comment on above: Performed By: #### 2 [id number] #### [employer]NA [employer] [address] [place] [address] 14776 Calcium [Mass/Vol] 9.7 mg/dL Normal 8.6-10.3 [facility] Comment on above: Performed By: #### 2 [id number] #### [employer] [address] [place] [address] 51995 Chloride [Moles/Vol] 97 mmol/L Low 98-107 [facility] Comment on above: Performed By: #### 2 [id number] #### ARI[employer]NA [employer] [address] [place] [address] 10650 CO2 [Moles/Vol] 28.0 mmol/L Normal 21.0-32.0 [facility] Comment on above: Performed By: #### 2 [id number] #### [employer] [address] [place] [address] 99216 Creatinine [Mass/Vol] 1.3 mg/dL High 0.5-1.1 [facility] Comment on above: Performed By: #### 2 [id number] #### [facility] [employer] [address] [place] [address] 04530 Globulin (S) [Mass/Vol] 4.0 g/dL Normal 2.0-4.0 [facility] Comment on above: Performed By: #### 2 [id number] #### [facility] [employer] [address] [place] [address] 46655 Glucose [Mass/Vol] 133 mg/dL High 70-99 [facility] Comment on above: Performed By: #### 2 [id number] #### [facility] [employer] [address] [place] [address] 69022 Potassium [Moles/Vol] 3.9 mmol/L Normal 3.5-5.3 [facility] Comment on above: Performed By: #### 2 [id number] #### [facility] [employer] [address] [place] [address] 77672 Protein [Mass/Vol] 7.7 g/dL Normal 6.4-8.2 [facility] Comment on above: Performed By: #### 2 [id number] #### [employer] [address] [place] [address] 10990 Sodium [Moles/Vol] 138 mmol/L Normal 136-145 [facility] Comment on above: Performed By: #### 2 [id number] #### [employer] [address] [place] [address] 26462 Urea nitrogen [Mass/Vol] 18 mg/dL Normal 6-23 [facility] Comment on above: Performed By: #### 2 [id number] #### ARI[employer]NA [employer] [facility] [place] [address] Urea nitrogen/Creatinine [Mass ratio] 13.8 ratio Normal 5.4-30.0 [facility] Comment on above: Performed By: #### 2 [id number] #### ARIANNA [employer] [facility] [place] [address] [id number] 11-05-2018 HbA1c (Bld) [Mass fraction] 6.4 % High 4.0-6.3 [facility] Comment on above: Performed By: #### 3 [id number] #### ARIANNA Chemistry Manual Subsection [address] [place] [address] 05582 Lipid Profileon 11-05-2018 Cholesterol [Mass/Vol] 222 mg/dL High 0-199 [facility] Comment on above: Result Comment: TOTA L CHOLEESTEROL: <200 NORMAL 200 - 239 BORDERLINE HIGH >240 HIGH Performed By: #### 3 [id number] #### [employer] [address] [place] [address] 02477 Cholesterol in HDL [Mass/Vol] 46 mg/dL Normal 40-60 [facility] Comment on above: Performed By: #### 3 [id number] #### [employer] [address] [place] [address] 23024 Cholesterol in LDL [Mass/Vol] 135 mg/dL High 0-130 [facility] Comment on above: Result Comment: <100 OPTIMAL 100-129 NEAR / ABOVE OPTIMAL 130-159 BORDERLINE HIGH 160-189 HIGH >190 VERY HIGH CALC LDL NOT VALID WHEN TRIGLYCERIDE IS >400 MG/DL Performed By: #### 3 [id number] #### [employer] [address] [place] [address] 68505 Cholesterol in VLDL [Mass/Vol] 41 mg/dL High 0-40 [facility] Comment on above: Performed By: #### 3 [id number] #### [employer] [address] [place] [address] 36649 Triglyceride [Mass/Vol] 205 mg/dL High 0-149 [facility] Comment on above: Result Comment: AGE DESIRABLE BORDERLINE HIGH 91 D - 9 Y 0 - 74 75 - 99 > 100 10 - 19 Y 0 - 89 90 - 129 > 130 20 -24 Y 0 - 114 115 - 149 > 150 > 25 0 - 149 150 - 199 200 - 499 Performed By: #### 3 [id number] #### ARIANNA [employer] [address] [place] [address] U Drug Screenon 11-05-2018 U Amph Scr Negative Normal Negative [facility] Comment on above: Performed By: #### 2 [id number] #### ARIANNA [employer] [address] [place] [address] U Tara Scr Negative Normal Negative [facility] Comment on above: Performed By: #### 2 [id number] #### ARIANNA [employer] [address] [place] [address] U Benzodia Scr Negative Normal Negative [facility] Comment on above: Performed By: #### 2 [id number] #### ARIANNA [employer] [address] [place] [address] U Cannab Scr Negative Normal Negative [facility] Comment on above: Performed By: #### 2 [id number] #### ARIANNA [employer] [address] [place] [address] U Cocaine Scr Negative Normal Negative [facility] Comment on above: Performed By: #### 2 [id number] #### ARIANNA [employer] [address] [place] [address] U Opiate Scr Negative Normal Negative [facility] Comment on above: Performed By: #### 2 [id number] #### ARIANNA [employer] [address] [place] [address] U PCP Scr Negative Normal Negative [facility] Comment on above: Performed By: #### 2 [id number] #### ARIANNA [employer] [address] [place] [address] Vitamin D 25 Hydroxyon 11-05 Vitamin D 25 Hydroxy 26.0 ng/mL Low 30.0-100.0 [facility] Comment on above: Performed By: #### 5 [id number] #### ARIANNA [employer] [address] [place] [address] 88586 eGFRon 11-05-2018 GFR/1.73 sq M predicted among non-blacks MDRD (S/P/Bld) [Vol rate/Area] 50 mL/min/1.73 m2 Normal [facility] Comment on above: Order Comment: Order added by Discern Expert. Performed By: #### 1 [id number] #### ARIANNA [employer] [address] [place] [address] GFR/1.73 sq M predicted among non-blacks MDRD (S/P/Bld) [Vol rate/Area] 42 mL/min/1.73 m2 [facility] Comment on above: Order Comment: Order added by Discern Expert. Performed By: #### 1 [id number] #### ARIANNA [employer] [address] [place] [address] Vital Signs Date Time Vital Sign Value Performing Clinician Facility 10-28-2024 12:45-0400 Body temperature 98 [degF] Dr. April Mullen MD [facility] 10-28-2024 12:45-0400 Diastolic blood pressure 81 mm[Hg] Dr. April Mullen MD [facility] 10-28-2024 12:45-0400 Heart rate 87 /min Dr. April Mullen MD [facility] 10-28-2024 12:45-0400 Respiratory rate 18 /min Dr. April Mullen MD [facility] 10-28-2024 12:45-0400 SaO2% (BldA) [Mass fraction] 98 % Dr. April Mullen MD [facility] 10-28-2024 12:45-0400 Systolic blood pressure 98 mm[Hg] Dr. April Mullen MD [facility] 10-28-2024 10:53-0400 Body height 167.[address] April Mullen MD [facility] 10-28-2024 10:53-0400 Body mass index (BMI) [Ratio] 33.5 kg/m2 Dr. April Mullen MD [facility] 10-28-2024 10:53-0400 Body weight 94.[address] April Mullen MD [facility] 10-09-2024 14:51-0400 Body height 167.[address] April Mullen MD [facility] 10-09-2024 14:51-0400 Diastolic blood pressure 69 mm[Hg] Dr. April Mullen MD [facility] 10-09-2024 14:51-0400 Heart rate 101 /min Dr. April Mullen MD [facility] 10-09-2024 14:51-0400 Respiratory rate 18 /min Dr. April Mullen MD [facility] 10-09-2024 14:51-0400 Systolic blood pressure 89 mm[Hg] Dr. April Mullen MD [facility] 07-23-2024 08:30-0400 Body mass index (BMI) [Ratio] 32.4 kg/m2 Dr. April Mullen MD [facility] 07-23-2024 08:30-0400 Body weight 91.[address] April Mullen MD [facility] 07-23-2024 08:30-0400 Diastolic blood pressure 79 mm[Hg] Dr. April Mullen MD [facility] 07-23-2024 08:30-0400 Heart rate 76 /min Dr. April Mullen MD [facility] 07-23-2024 08:30-0400 Respiratory rate 18 /min Dr. April Mullen MD [facility] 07-23-2024 08:30-0400 Systolic blood pressure 104 mm[Hg] Dr. April Mullen MD [facility] 07-01-2024 14:10-0400 Body temperature 97.6 [degF] Dominic Lim [facility] 07-01-2024 14:10-0400 Diastolic blood pressure 82 mm[Hg] Dominic Lim [facility] 07-01-2024 14:10-0400 Heart rate 81 /min Dominic Lim [facility] 07-01-2024 14:10-0400 Respiratory rate 16 /min Dominic Lim [facility] 07-01-2024 14:10-0400 SaO2% (BldA) [Mass fraction] 99 % [facility] 07-01-2024 14:10-0400 Systolic blood pressure 108 mm[Hg] Dominic Lim [facility] 07-01-2024 11:58-0400 Body height 167.64 cm [facility] 07-01-2024 11:58-0400 Body mass index (BMI) [Ratio] 32.4 kg/m2 Dominic Lim [facility] 07-01-2024 11:58-0400 Body weight 91.17 kg Dominic Lim [facility] 04-28-2024 10:59-0500 Body height 167.64 cm Dominic Lim [facility] 04-28-2024 10:59-0500 Body mass index (BMI) [Ratio] 32.4 kg/m2 Dominic Lim [facility] 04-28-2024 10:59-0500 Body weight 91.17 kg Dmoinic Lim [facility] 04-28-2024 10:59-0500 Diastolic blood pressure 70 mm[Hg] Dominic Lim [facility] 04-28-2024 10:59-0500 Heart rate 81 /min Dominic Lim [facility] 04-28-2024 10:59-0500 Respiratory rate 18 /min Dominic Lim [facility] 04-28-2024 10:59-0500 SaO2% (BldA) [Mass fraction] 98 % Dominic Lim [facility] 04-28-2024 10:59-0500 Systolic blood pressure 98 mm[Hg] Dominic [facility] 03-28-2024 17:47-0500 Body temperature 98.2 [degF] Dominic Lim [facility] 03-28-2024 17:47-0500 Diastolic blood pressure 61 mm[Hg] Dominic Lim [facility] 03-28-2024 17:47-0500 Heart rate 90 /min Dominic Chamberlainelsen [facility] 03-28-2024 17:47-0500 Respiratory rate 18 /min Dominic Chamberlainelsen [facility] 03-28-2024 17:47-0500 SaO2% (BldA) [Mass fraction] 97 % Dominic Lim [facility] 03-28-2024 17:47-0500 Systolic blood pressure 99 mm[Hg] Dominic [facility] 03-28-2024 11:54-0500 Body mass index (BMI) [Ratio] 34.7 kg/m2 Dominic Lim [facility] 03-28-2024 11:54-0500 Body weight 97.6 kg Dominic Carina LUCERO [facility] 02-28-2024 09:59-0500 Body height 167.6 cm Braulio Oneil MD PhD Work Phone: [facility] 02-28-2024 09:59-0500 Body mass index (BMI) [Ratio] 36.32 kg/m2 Braulio Oneil MD PhD Work Phone: [facility] 02-28-2024 09:59-0500 Body temperature 96.6 [degF] Braulio Oneil MD PhD Work Phone: [facility] 02-28-2024 09:59-0500 Body weight 102.06 kg Braulio Oneil MD PhD Work Phone: [facility] 02-28-2024 09:59-0500 Diastolic blood pressure 76 mm[Hg] Braulio Oneil MD PhD Work Phone: [facility] 02-28-2024 09:59-0500 Heart rate 88 /min Braulio Oneil MD PhD Work Phone: [facility] 02-28-2024 09:59-0500 Systolic blood pressure 108 mm[Hg] Braulio Oneil MD PhD Work Phone: [facility] 12-04-2023 10:41-0400 Diastolic blood pressure 72 mm[Hg] Eliza Milks PA-C Work Phone: [facility] 12-04-2023 10:41-0400 Heart rate 83 /min Leiza Milks PA-C Work Phone: [facility] 12-04-2023 10:41-0400 Systolic blood pressure 106 mm[Hg] Eliza Milks PA-C Work Phone: [facility] 11-20-2023 08:04-0400 Body temperature 98.1 [degF] Madhuri Chauhan MD Work Phone: [facility] 11-20-2023 08:04-0400 Diastolic blood pressure 89 mm[Hg] Madhuri Chauhan MD Work Phone: [facility] 11-20-2023 08:04-0400 Heart rate 99 /min Madhuri Chauhan MD Work Phone: [facility] 11-20-2023 08:04-0400 Respiratory rate 18 /min Madhuri Chauhan MD Work Phone: [facility] 11-20-2023 08:04-0400 SaO2% (BldA) [Mass fraction] 96 % Madhuri Chauhan MD Work Phone: [facility] 11-20-2023 08:04-0400 Systolic blood pressure 145 mm[Hg] Madhuri Chauhan MD Work Phone: [facility] 11-14-2023 18:51-0400 Body temperature 37.0 Madhuri Chauhan MD Work Phone: [facility] 11-14-2023 18:51-0400 SaO2% (BldA) [Mass fraction] 99 % Madhuri Chauhan MD Work Phone: [facility] 11-14-2023 18:34-0400 Body temperature 37.0 degrees [facility]els[facility] Comment on above: Performed By: #### [id number] #### OMERO KNIGHT ([id number]) [facility] ([facility]) [address] [place] [address] 11-14-2023 18:34-0400 SaO2% (BldA) [Mass fraction] 99 % [facility] Comment on above: Performed By: #### [id number] #### OMERO KNIGHT ([id number]) [facility] ([facility]) [address] [place] [address] 11-14-2023 16:54-0400 Body temperature 37.0 Madhuri Chauhan MD Work Phone: [facility] 11-14-2023 16:54-0400 SaO2% (BldA) [Mass fraction] 99 % Madhuri Chauhan MD Work Phone: [facility] 11-14-2023 16:36-0400 Body temperature 37.0 degrees Celsius [facility] Comment on above: Performed By: #### [id number] #### OMERO KNIGHT ([id number]) [facility] ([facility]) [address] [place] [address] 11-14-2023 16:36-0400 SaO2% (BldA) [Mass fraction] 99 % [facility] Comment on above: Performed By: #### [id number] #### OMERO KNIGHT ([id number]) [facility] ([facility]) [address] [place] [address] 11-09-2023 02:30-0400 Body height 170.2 cm Madhuri Chauhan MD Work Phone: [facility] 11-09-2023 02:30-0400 Body mass index (BMI) [Ratio] 32.66 kg/m2 Madhuri Chauhan MD Work Phone: [facility] 11-09-2023 02:30-0400 Body weight 94.6 kg Madhuri Chauhan MD Work Phone: [facility] 10-15-2023 15:10-0400 Body temperature 97.5 [degF] Flavio Miles DO Work Phone: [facility] 10-15-2023 15:10-0400 Diastolic blood pressure 83 mm[Hg] Flavio Miles DO Work Phone: [facility] 10-15-2023 15:10-0400 Heart rate 78 /min Flavio Miles DO Work Phone: [facility] 10-15-2023 15:10-0400 Respiratory rate 16 /min Flavio Miles DO Work Phone: [facility] 10-15-2023 15:10-0400 SaO2% (BldA) [Mass fraction] 92 % Flavio Miles DO Work Phone: [facility] 10-15-2023 15:10-0400 Systolic blood pressure 121 mm[Hg] Flavio Miles DO Work Phone: [facility] 10-10-2023 01:24-0400 Body height 167.6 cm Flavio Miles DO Work Phone: [facility] 10-10-2023 01:24-0400 Body mass index (BMI) [Ratio] 40.35 kg/m2 Flavio Miles DO Work Phone: [facility] 10-10-2023 01:24-0400 Body weight 113.4 kg Flavio Milse DO Work Phone: [facility] 06-10-2023 19:14-0500 Diastolic blood pressure 63 mm[Hg] Flavio Miles DO Work Phone: [facility] 06-10-2023 19:14-0500 Heart rate 83 /min Flavio Miles DO Work Phone: [facility] 06-10-2023 19:14-0500 Respiratory rate 16 /min Flavio Miles DO Work Phone: [facility] 06-10-2023 19:14-0500 SaO2% (BldA) [Mass fraction] 98 % Flavio Miles DO Work Phone: [facility] 06-10-2023 19:14-0500 Systolic blood pressure 118 mm[Hg] Flavio Miles DO Work Phone: [facility] 06-10-2023 17:41-0500 Body height 167.6 cm Flavio Miles DO Work Phone: [facility] 06-10-2023 17:41-0500 Body mass index (BMI) [Ratio] 40.03 kg/m2 Flavio Miles DO Work Phone: [facility] 06-10-2023 17:41-0500 Body temperature 97.81 [degF] Flavio Miles DO Work Phone: [facility] 06-10-2023 17:41-0500 Body weight 112.49 kg Flavio Miles DO Work Phone: [facility] 10-13-2022 14:22-0400 Body height 167.6 cm Huan Mcdaniel MD Work Phone: [facility] 10-13-2022 14:22-0400 Body mass index (BMI) [Ratio] 40.05 kg/m2 Huan Mcdaniel MD Work Phone: [facility] 10-13-2022 14:22-0400 Body weight 112.49 kg Huan Mcdaniel MD Work Phone: [facility] 06-05-2022 11:04-0500 Body mass index (BMI) [Ratio] Medical Reason Not Done Huan Mcdaniel Work Phone: [facility] Work Phone: 06-05-2022 11:04-0500 Diastolic blood pressure 78 mm[Hg] Huan Mcdaniel Work Phone: [facility] Work Phone: 06-05-2022 11:04-0500 Heart rate 90 /min Huan Mcdaniel Work Phone: [facility] Work Phone: 06-05-2022 11:04-0500 SaO2% (BldA) [Mass fraction] 90 % Huan Mcdaniel Work Phone: [facility] Work Phone: 06-05-2022 11:04-0500 Systolic blood pressure 120 mm[Hg] Huan O Mcdaniel Work Phone: [facility] Work Phone: 05-24-2022 11:32-0500 Diastolic blood pressure 74 mm[Hg] Huan O Mcdaniel Work Phone: [facility] [address] Work Phone: 05-24-2022 11:32-0500 Heart rate 104 /min Huan O Mcdaniel Work Phone: [facility] [address] Work Phone: 05-24-2022 11:32-0500 SaO2% (BldA) [Mass fraction] 97 % Huan O Mcdaniel Work Phone: XE-Dsposjcrsh-Oabt [address] Work Phone: 05-24-2022 11:32-0500 Systolic blood pressure 118 mm[Hg] Huan O Mcdaniel Work Phone: MN-Cpkyqoctjk-Arsg [facility] [address] Work Phone: 03-07-2022 14:08-0500 Body mass index (BMI) [Ratio] Patient Reason Not Done Huan O Mcdaniel Work Phone: -[facility] Work Phone: 03-07-2022 14:08-0500 Diastolic blood pressure 74 mm[Hg] Huan O Mcdaniel Work Phone: -[facility] Work Phone: 03-07-2022 14:08-0500 Heart rate 76 /min Huan O Mcdaniel Work Phone: [facility] Work Phone: 03-07-2022 14:08-0500 Respiratory rate 16 /min Huan O Mcdaniel Work Phone: [facility] Work Phone: 03-07-2022 14:08-0500 Systolic blood pressure 118 mm[Hg] Huan Manriqueer Work Phone: [facility] Work Phone: 02-04-2021 16:31-0400 Diastolic blood pressure 78 mm[Hg] Huan Manriqueer Work Phone: [facility] Work Phone: 02-04-2021 16:31-0400 Heart rate 72 /min Huan Manriqueer Work Phone: [facility] Work Phone: 02-04-2021 16:31-0400 Systolic blood pressure 124 mm[Hg] Huan Manriqueer Work Phone: [facility] Work Phone: 11-13-2019 15:22-0400 BMI (Body Mass Index) 51.09 kg/m2 Huan Mcdaniel MC-Kncbozesce-E[facility] [place] Edwin [address] DO Work Phone: 11-13-2019 15:22-0400 Body Temperature 96.9 [degF] Huan Mcdaniel MU[facility] Work Phone: 11-13-2019 15:22-0400 Body weight 139.26 kg Huan Mcdaniel MP-Xivrilqzxd-BT [facility] Edwin 3 DO Work Phone: 11-13-2019 15:22-0400 BP Diastolic 69 mm[Hg] Huan Mcdaniel BA-Bkcbqprycf-JO [facility] Edwin 3 DO Work Phone: Comment on above: Location: RUE; Position: Sitting 11-13-2019 15:22-0400 BP Systolic 116 mm[Hg] Huan Mcdaniel NO-Rmeyqyuurf-YP [facility] Edwin 3 DO Work Phone: Comment on above: Location: RUE; Position: Sitting 11-13-2019 15:22-0400 BSA (Body Surface Area) 2.37 m2 Huan Manriquefatou GARRIDOYW[facility] 3 DO Work Phone: 11-13-2019 15:22-0400 Height 165.1 cm Huan Manriquefatou [facility]OJA[facility] DO Work Phone: 11-13-2019 15:22-0400 Pulse (Heart Rate) 79 /min [facility]uan [facility]cd[facility]iel [facility] Work Phone: 10-30-2019 12:49-0400 BMI (Body Mass Index) 51.09 kg/m2 [facility]ar [facility] Work Phone: 10-30-2019 12:49-0400 Body Temperature 98.2 [degF] Waqar [facility]str[facility] Work Phone: Comment on above: Method: Oral 10-30-2019 12:49-0400 Body weight 139.26 kg Waqar Estrada [facility] Work Phone: 10-30-2019 12:49-0400 BP Diastolic 80 mm[Hg] Waqar Estrada [facility] Work Phone: Comment on above: Location: LUE; 10-30-2019 12:49-0400 BP Systolic 134 mm[Hg] Waqar Estrada [facility] Work Phone: Comment on above: Location: LUE; 10-30-2019 12:49-0400 BSA (Body Surface Area) 2.37 m2 Waqar Estrada [facility] Work Phone: 10-30-2019 12:49-0400 Height 165.1 cm Waqar Estrada [facility] Work Phone: 10-30-2019 12:49-0400 Pulse (Heart Rate) 72 /min Waqar Estrada [facility] Work Phone: 02-19-2019 12:06-0500 BMI (Body Mass Index) 50.66 kg/m2 [facility] Work Phone: 02-19-2019 12:06-0500 Body weight 138.08 kg [facility] Work Phone: 02-19-2019 12:06-0500 BP Diastolic 86 mm[Hg] [facility] Work Phone: Comment on above: Location: LUE; 02-19-2019 12:06-0500 BP Systolic 128 mm[Hg] [facility] Work Phone: Comment on above: Location: LUE; 02-19-2019 12:06-0500 BSA (Body Surface Area) 2.36 m2 [facility] Work Phone: 02-19-2019 12:06-0500 Height 165.1 cm [facility] Work Phone: 02-19-2019 12:06-0500 Pulse (Heart Rate) 84 /min [facility] Work Phone: 02-19-2019 12:06-0500 Pulse Oximetry 96 % [facility] Work Phone: 02-05-2019 12:12-0400 BMI (Body Mass Index) 51.59 kg/m2 [facility] Work Phone: 02-05-2019 12:12-0400 Body weight 140.62 kg Huan Mcdaniel RADHIKA[facility] Work Phone: 02-05-2019 12:12-0400 BP Diastolic 78 mm[Hg] Huanfatou Manriqueer RADHIKA-[facility] Work Phone: Comment on above: Location: LUE; 02-05-2019 12:12-0400 BP Systolic 128 mm[Hg] Huan Mcdaniel -[facility] Work Phone: Comment on above: Location: LUE; 02-05-2019 12:12-0400 BSA (Body Surface Area) 2.38 m2 Huan Mcdaniel [facility] Work Phone: 02-05-2019 12:12-0400 Height 165.1 cm Huan Mcdaniel [facility] Work Phone: 02-05-2019 12:12-0400 Pulse (Heart Rate) 72 /min Huan Mcdaniel [facility] Work Phone: Encounters Encounter Date Encounter Type Care Provider Facility Start: 10-28-2024 ambulatory [facility] Facility:[facility] Start: 10-28-2024 Non-patient / Non-visit Jacinto Masterson nd, DO -[facility] Start: 10-28-2024 End: 10-28-2024 Admission to same day surgery center Jacinto Munoz DO -Endoscopy Work Phone: Start: 10-28-2024 End: 10-28-[address] April Mullen MD -Endoscopy Start: 10-09-2024 End: 10-09-2024 Patient encounter procedure Yennifer Pemberton NP-Hollie -[facility] Work Phone: Start: 10-09-2024 End: 10-09-[address] April Mullen MD -[facility] Start: 09-19-2024 End: 09-19-2024 Telephone encounter Laurent Garza APRN.HEAD SCORER Work Phone: [facility] Start: 09-17-2024 End: 09-17-2024 Telephone encounter Laurent Garza APRN.HEAD SCORER Work Phone: [facility] Comment on above: Appointment (Appoint ment) Start: 09-16-2024 ambulatory Aprilluke Mullen Facility:[facility] Start: 09-16-[address] Delgado Amaro MD -[facility] Start: 08-19-2024 ambulatory [facility] Facility:[facility] Start: 08-19-[address] Delgado Amaro MD -[facility] Start: 08-13-2024 ambulatory April Gudla Facility:[facility] Start: 08-13-2024 Non-patient / Non-visit Dr. Henri duron MD -[facility] Start: 08-13-2024 End: 08-13-[address] April Mullen MD [facility] Work Phone: Start: 08-13-2024 End: 08-13-[address] Henri Pedraza MD -Cardiovascular Services Work Phone: Start: 08-13-2024 End: 08-13-2024 ambulatory April Gudla Facility:[facility] Start: 07-31-2024 End: 07-31-2024 Patient encounter procedure Mandy MISTRY -[facility] Work Phone: Start: 07-31-2024 End: 07-31-2024 ambulatory April Gudla Facility:[facility] Start: 07-23-2024 End: 07-23-[address] Henri Pedraza MD [facility] Work Phone: Start: 07-23-2024 End: 07-23-2024 ambulatory April Gudla Facility:[facility] Start: 07-22-2024 End: 07-22-[address] April Mullen MD [facility] Work Phone: Start: 07-22-2024 End: 07-22-[address] Delgado Amaro MD -[facility] Start: 07-22-2024 End: 07-22-2024 ambulatory April Gudla Facility:[facility] Start: 07-01-2024 ambulatory April Gudla Facility:[facility] Start: 07-01-2024 Non-patient / Non-visit Jacinto Masterson nd, DO -[facility] Start: 07-01-2024 End: 07-01-2024 Admission to same day surgery center Jacinto Munoz DO -Endoscopy Work Phone: Start: 07-01-2024 End: 07-01-2024 ambulatory [facility] Work Phone: Start: 06-24-2024 End: 06-24-2024 ambulatory [facility] Work Phone: Start: 06-24-2024 End: 06-24-[address] Delgado Amaro MD -[facility] Start: 06-24-[address] Delgado Amaro MD [facility] Start: 06-24-2024 End: 06-24-2024 ambulatory [facility] Facility:[facility] Start: 06-04-2024 End: 06-04-2024 ambulatory [facility] Work Phone: Start: 06-04-2024 End: 06-04-[address] April Mullen MD [facility] Start: 06-04-[address] April Mullen MD [facility] Start: 06-03-2024 End: 06-04-2024 ambulatory [facility] Work Phone: Start: 06-03-2024 End: 06-03-[address] Delgado Amaro MD [facility] Start: 06-03-[address] Delgado Amaro MD [facility] Start: 06-02-2024 End: 06-03-2024 ambulatory Delgado LUCERO Facility:[facility] Start: 06-02-[address] April Mullen MD [facility] Start: 05-27-2024 ambulatory [facility] Ermaria luisa Facility:[facility] Start: 05-27-[address] April Mullen MD [facility] Start: 05-12-2024 End: 05-12-2024 ambulatory [facility] Work Phone: Start: 05-12-2024 End: 02-03-[address] Delgado Amaro MD -[facility] Start: 05-12-2024 End: 05-12-2024 ambulatory Delgado LUCERO Facility:[facility] Start: 04-28-2024 End: 04-28-2024 Patient encounter procedure Chrissie CASH -[facility] Work Phone: Start: 04-28-2024 End: 04-28-2024 ambulatory April Mullen Facility:[facility] Start: 04-14-2024 ambulatory April Mullen OLS Facili ty:[facility] Start: 04-14-[address] April Mullen MD -[facility] Start: 04-07-2024 End: 04-07-[address] April Mullen MD -[facility] Start: 04-07-2024 End: 04-07-2024 ambulatory Aprilluke Mullen Facility:[facility] Start: 04-03-2024 End: 04-03-[address] April Mullen MD -[facility] Start: 04-03-2024 End: 04-03-2024 ambulatory Aprilluke Mullen Facility:[facility] Start: 03-28-2024 End: 03-28-2024 Emergency department patient visit Dr. Anthony Greer DO -Emergency Department Work Phone: Start: 03-28-2024 End: 03-28-2024 Departed Referred Dominic Lim [facility] Start: 03-28-2024 End: 03-28-2024 ambulatory Dominic LUCERO Facility:[facility] Start: 02-28-2024 End: 02-28-2024 Postop follow up visit related to original px Braulio Oneil MD PhD Work Phone: [facility] Comment on above: S/P laminectomy (Elizabet frost Dx) Start: 02-28-2024 End: 02-28-2024 [facility] BRAULIO ONEIL [facility] Start: 02-27-2024 End: 02-27-2024 Departed Referred Dominic Lim [facility] Start: 02-27-2024 End: 02-27-2024 ambulatory Dominic LUCERO Facility:[facility] Start: 01-29-2024 ambulatory Dominic Lim OLS Facili ty:[facility] Start: 01-28-2024 ambulatory Dominic Lim Facility:[facility] Start: 01-21-2024 ambulatory Dominic Lim OLS Facili ty:[facility] Start: 01-16-2024 ambulatory April Gudla OLS Facili ty:[facility] Start: 01-15-2024 End: 01-15-2024 Office outpatient visit 25 minutes Megan Osorio DO Work Phone: [facility] Comment on above: Vertebral osteomyeli tis (Multi) (Primary Dx) Start: 01-15-2024 End: 01-15-2024 ambulatory [facility] Ambulatory Start: 01-14-2024 ambulatory Dominic Lim OLS Facili ty:[facility] Start: 01-09-2024 ambulatory April Gudla OLS Facili ty:[facility] Start: 01-01-2024 ambulatory Ryansunalex Ryanmaria luisaalistair Facility:[facility] Start: 12-31-2023 End: 01-08-2024 Evaluation and management of inpatient Waqar batsheva Donte Facility:[facility] Start: 12-31-2023 ambulatory Waqar herman Donte Facili ty:[facility] Start: 12-28-2023 ambulatory Dominic Lim OLS Facili ty:[facility] Start: 12-26-2023 End: 12-26-2023 Office outpatient visit 25 minutes Megan Osorio DO Work Phone: [facility] Comment on above: Vertebral osteomyeli tis (Multi) (Primary Dx); Discitis, unspecified, thoracic region Start: 12-25-2023 ambulatory Dominic Lim OLS Facili ty:[facility] Start: 12-24-2023 ambulatory April Gudla OLS Facili ty:[facility] Start: 12-19-2023 ambulatory April Gudla OLS Facili ty:[facility] Start: 12-18-2023 ambulatory Dominic Lim Facility:[facility] Start: 12-17-2023 End: 12-18-2023 Emergency department patient visit Jerman Zavala Facility:[facility] Start: 12-12-2023 ambulatory Dominic Lim OLS Facili ty:[facility] Start: 12-11-2023 ambulatory Dominic Lim OLS Facili ty:[facility] Start: 12-04-2023 End: 12-04-2023 ambulatory [facility] Ambulatory Start: 12-04-2023 End: 12-04-2023 Postop follow up visit related to original px [facility]iza [facility] Work Phone: [facility] Comment on above: Spondylosis with mye lopathy, thoracic region (Primary Dx) Start: 12-03-2023 ambulatory Dominic Lim OLS Facili ty:[facility] Start: 11-30-2023 ambulatory April LUCERO Facili ty:[facility] Start: 11-28-2023 ambulatory Dominic Lim OLS Facili ty:[facility] Start: 11-27-2023 ambulatory Dominic Lim OLS Facili ty:[facility] Start: 11-26-2023 ambulatory Dominic Lim OLS Facili ty:[facility] Start: 11-21-2023 ambulatory Dominic Lim OLS Facili ty:[facility] Start: 11-09-2023 End: 11-20-2023 [place] Work Phone: Start: 11-06-2023 End: 11-08-2023 Evaluation and management of inpatient HUAN Patton [facility] Start: 10-10-2023 End: 10-15-2023 Evaluation and management of inpatient [facility] Work Phone: Comment on above: Hyponatremia (Primar y Dx); Benign essential hypertension; Iron deficiency anemia secondary to inadequate dietary iron intake; Mixed hyperlipidemia Start: 08-20-2023 End: 08-20-2023 Office outpatient visit 25 minutes Huan Mcadniel MD Work Phone: [facility] Comment on above: Vitamin D deficiency (Primary Dx); Chronic atrial fibrillation (Multi); Diabetes 1.5, managed as type 2 (Multi); 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) Start: 08-20-2023 End: 08-20-2023 ambulatory [facility] Ambulatory Start: 08-03-2023 End: 08-03-2023 ambulatory [facility] Start: 08-02-2023 End: 08-02-2023 ambulatory MARLEEN SIGALA [facility] Start: 08-02-2023 End: 08-02-2023 Telemedicine consultation with [facility] Comment on above: Persistent atrial fi brillation (Multi) Start: 07-20-2023 End: 07-20-2023 ambulatory MARLEENKARLA SIGALA [facility] Ambulatory Start: 07-20-2023 End: 07-20-2023 Office outpatient visit 15 minutes Marleen Sigala HUB INVENTORY SPECIALIST-HEAD SCORER, DNP Work Phone: [facility] Comment on above: Persistent atrial fi brillation (Multi) (Primary Dx) Start: 07-03-2023 End: 07-03-2023 Office outpatient visit 15 minutes Huan Mcdaniel MD Work Phone: [facility] Comment on above: Hematoma of right fo ot (Primary Dx); Anxiety Start: 06-10-2023 End: 06-10-2023 Emergency department patient visit Flavio Miles DO Work Phone: [facility] Comment on above: Contusion of right f oot, initial encounter (Primary Dx); Hematoma of right foot Start: 05-21-2023 End: 05-21-2023 ambulatory [facility] Start: 04-20-2023 End: 04-20-2023 Phys/qhp telephone evaluation 21-30 min Huan Mcdaniel MD Work Phone: [facility] Comment on above: Syndrome of inapprop [...] 25 minutes Huan Mcdaniel MD Work Phone: [facility] Comment on above: Morbid obesity with BMI of 40.0-44.9, adult (CMS/HCC) (Primary Dx); Diabetes 1.5, managed as type 2 (CMS/[facility]); Anxiety; Benign essential hypertension; Hyperlipidemia, unspecified hyperlipidemia type; Hypokalemia; Hypomagnesemia; Iron deficiency anemia secondary to inadequate dietary iron intake; Vitamin D deficiency; Age-related incipient cataract of both eyes Start: 03-06-2023 End: 03-06-2023 [facility] HUAN MCDANIEL [facility] Start: 12-12-2022 End: 12-12-2022 Office outpatient visit 25 minutes Huan Mcdaniel MD Work Phone: [facility] Comment on above: Anxiety (Primary Dx) [...] Morbid obesity with BMI of 40.0-44.9, adult ([facility]/HCC); Neurodermatitis; Personal history of colonic polyps; Primary osteoarthritis of both knees; Vitamin D deficiency Start: 10-13-2022 End: 10-13-2022 Phys/qhp telephone evaluation 21-30 min Huan Mcdaniel MD Work Phone: [facility] Comment on above: Chronic atrial fibri llation (CMS/HCC) (Primary Dx); Asthma, unspecified asthma severity, unspecified whether complicated, unspecified whether persistent; 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 Huan Mcdaniel Facility:[id number] Start: 06-05-2022 Adv care pln tlkd & alt dcsn maker docd Huan Mcdaniel Work Phone: [facility] Work Phone: Start: 06-02-2022 Chart Update Huan Mcdaniel Work Phone: [facility] Work Phone: Start: 06-01-2022 Chart Update Huan Mcdaniel Work Phone: [facility] Work Phone: Start: 05-24-2022 Office outpatient vi sit 25 minutes Huan Mcdaniel Work Phone: [address] Work Phone: Start: 05-11-2022 AUDIT Huan Mcdaniel Work Phone: [facility] Work Phone: Start: 04-04-2022 AUDIT Huan Mcdaniel Work Phone: [facility] Work Phone: Start: 03-28-2022 AUDIT Huan Mcdaniel Work Phone: [facility] Work Phone: Start: 03-07-2022 EPV, Provider: Huan Mcdaniel, Status: Pen, Time: 2:00 PM Huan Mcdaniel Work Phone: [facility] Work Phone: Start: 03-07-2022 Office outpatient vi sit 25 minutes Huan Patton Mcdaniel Work Phone: [facility] Work Phone: Start: 03-06-2022 Chart Update Huan O Mcdaniel Work Phone: [facility] Work Phone: Start: 02-10-2022 AUDIT Huan O Mcdaniel Work Phone: [facility] Work Phone: Start: 12-23-2021 AUDIT Huan O Mcdaniel Work Phone: [facility] Work Phone: Start: 12-02-2021 Office outpatient vi sit 25 minutes Huan O Mcdaniel Work Phone: [facility] Work Phone: Start: 12-02-2021 CHRISTINE, Provider : Huan Mcdaniel, Status: Pen, Time: 3:30 PM Huan Manriqueer Work Phone: [facility] Work Phone: Start: 12-01-2021 Chart Update Huan Pooja BanerjeeMcdaniel Work Phone: [facility] Work Phone: Start: 11-14-2021 AUDIT Huan O Mcdaniel Work Phone: [facility] Work Phone: Start: 10-21-2021 AUDIT Huan O Mcdaniel Work Phone: [facility] Work Phone: Start: 10-14-2021 AUDIT Huan O Mcdaniel Work Phone: [facility] Work Phone: Start: 10-11-2021 AUDIT Huan O Mcdaniel Work Phone: [facility] Work Phone: Start: 09-29-2021 AUDIT Huan O Mcdaniel Work Phone: [facility] Work Phone: Start: 09-26-2021 AUDIT Huan O Mcdaniel Work Phone: [facility] Work Phone: Start: 09-22-2021 AUDIT Huan O Mcdaniel Work Phone: [facility] Work Phone: Start: 09-01-2021 Office outpatient vi sit 25 minutes Huan Pooja Manriqueer Work Phone: [facility] Work Phone: Start: 08-25-2021 AUDIT Huan O Mcdaniel Work Phone: [facility] Work Phone: Start: 08-08-2021 AUDIT Huan O Mcdaniel Work Phone: [facility] Work Phone: Start: 08-01-2021 Chart Update Huan Manriqueer Work Phone: [facility] Work Phone: Start: 07-21-2021 AUDIT Huan O Mcdaniel Work Phone: [facility] Work Phone: Start: 06-20-2021 AUDIT Huan O Mcdaniel Work Phone: [facility] Work Phone: Start: 06-09-2021 Phys/qhp telephone evaluation 21-30 min Huan Manriqueer Work Phone: [facility] Work Phone: Start: 06-09-2021 HAWAFUVSARAH, Provider : Huan Mcdaniel, Status: Pen, Time: 1:00 PM Huan O Mcdaniel Work Phone: [facility] Work Phone: Start: 06-08-2021 Chart Update Huan O Mcdaniel Work Phone: [facility] Work Phone: Start: 05-25-2021 Phys/qhp telephone evaluation 21-30 min Huan O Mcdaniel Work Phone: [facility] [address] Work Phone: Start: 05-25-2021 CHRISTINE, Provider : Norman Valdivia, Status: Pen, Time: 10:45 AM Huan O Mcdaniel Work Phone: [facility] Work Phone: Start: 05-23-2021 AUDIT Huan O Mcdaniel Work Phone: [facility] Work Phone: Start: 04-22-2021 AUDIT Huan O Mcdaniel Work Phone: [facility] Work Phone: Start: 04-11-2021 AUDIT Huan O Mcdaniel Work Phone: [facility] Work Phone: Start: 03-24-2021 AUDIT Huan O Mcdaniel Work Phone: [facility] Work Phone: Start: 03-07-2021 AUDIT Huan O Mcdaniel Work Phone: [facility] Work Phone: Start: 02-11-2021 Chart Update Huan O Mcdaniel Work Phone: [facility] Work Phone: Start: 02-04-2021 Office outpatient vi sit 25 minutes Huan O Mcdaniel Work Phone: [facility] Work Phone: Start: 01-28-2021 AUDIT Huan O Mcdaniel Work Phone: [facility] Work Phone: Start: 01-25-2021 AUDIT Huan O Mcdaniel Work Phone: [facility] Work Phone: Start: 12-28-2020 AUDIT Huan O Mcdaniel Work Phone: [facility] Work Phone: Start: 12-20-2020 AUDIT Huan O Mcdaniel Work Phone: [facility] Work Phone: Start: 12-01-2020 AUDIT Huan O Mcdaniel Work Phone: [facility] Work Phone: Start: 11-05-2020 Office outpatient vi sit 25 minutes Huan O Mcdaniel Work Phone: [facility] Work Phone: Start: 11-05-2020 Chart Update Huan O Mcdaniel Work Phone: [facility] Work Phone: Start: 11-02-2020 JACINTASARAH, Provider : Huan Mcdaniel, Status: Pen, Time: 2:30 PM Huan O Mcdaniel Work Phone: [facility] Work Phone: Start: 11-01-2020 AUDIT Huan O Mcdaniel Work Phone: [facility] Work Phone: Start: 10-21-2020 Chart Update Huan O Mcdaniel Work Phone: [facility] Work Phone: Start: 10-21-2020 Chart Update Huan O Mcdaniel Work Phone: [facility] Work Phone: Start: 10-13-2020 AUDIT Huan Mcdaniel Work Phone: [facility] Work Phone: Start: 09-09-2020 AUDIT Huan Mcdaniel Work Phone: [facility] Work Phone: Start: 04-05-2020 Patient encounter procedure Huan Mcdaniel [facility] Work Phone: Start: 01-30-2020 Patient encounter procedure Huan Mcdaniel [facility] Work Phone: Start: 12-17-2019 Patient encounter procedure Huan Mcdaniel [facility] Work Phone: Start: 11-13-2019 Patient encounter procedure [facility]cd[facility] Work Phone: Start: 11-12-2019 Patient encounter procedure [facility] Work Phone: Start: 10-30-2019 Patient encounter procedure Waqar Estrada [facility] Work Phone: Start: 10-20-2019 Patient encounter procedure Waqar Estrada [facility] Work Phone: Start: 10-15-2019 Patient encounter procedure Waqar Estrada [facility] Work Phone: Start: 09-22-2019 Patient encounter procedure Waqar Estrada [facility] Work Phone: Start: 09-19-2019 Patient encounter procedure Waqar Estrada [facility] Work Phone: Start: 09-17-2019 Patient encounter procedure Waqar Estrada [facility] Work Phone: Start: 09-15-2019 Patient encounter procedure Waqar Estrada [facility] Work Phone: Start: 09-11-2019 Patient encounter procedure Waqar [facility] Work Phone: Start: 09-10-2019 Patient [facility] Work Phone: Start: 09-08-2019 Patient encounter procedure Waqar [facility] Work Phone: Start: 09-05-2019 Patient encounter procedure Waqar [facility] Work Phone: Start: 08-25-2019 Patient encounter procedure Waqar Estrada [facility] Work Phone: Start: 08-21-2019 Patient encounter procedure Waqar Estrada [facility] Work Phone: Start: 08-18-2019 Patient encounter procedure Waqar Estrada [facility] Work Phone: Start: 08-05-2019 Patient encounter procedure Huan Mcdaniel [facility] Work Phone: Start: 07-29-2019 Patient encounter procedure Huan Mcdaniel [facility] Work Phone: Start: 07-10-2019 Patient encounter procedure Huan Mcdaniel [facility] Work Phone: Start: 05-20-2019 Patient encounter procedure Huan Mcdaniel [facility] Work Phone: Start: 02-19-2019 Patient encounter procedure [facility] Work Phone: Start: 02-14-2019 Patient encounter procedure Huan Mcdaniel [facility] Work Phone: Start: 02-05-2019 Patient encounter procedure Huan Mcdaniel [facility] Work Phone: Procedures Date Procedure Procedure Detail [...] Glucose quantitative blood xcpt reagent strip Sai Marei MD Work Phone: Start: 11-17-2023 Glucose quantitative [...] Start: 11-13-2023 Blood typing serologic rh (d) Monique Jose MD Work Phone: Start: 11-13-2023 Glucose [...] metabolic panel calcium total Dorota I Wittel [employer] Work Phone: Start: 10-14-2023 Glucose quantitative blood [...] metabolic panel calcium total Dorota I Wittel [employer] Work Phone: Start: 10-13-2023 Glucose quantitative blood [...] metabolic panel calcium total Dorota I Wittel [employer] Work Phone: Start: 10-12-2023 Glucose quantitative blood [...] 10-11-2023 Glucose quantitative blood xcpt reagent strip Reentta Romero MD Work Phone: Start: 10-11-2023 Glucose quantitative blood xcpt reagent strip Renetta Romero MD Work Phone: Start: 10-11-2023 Basic metabolic panel calcium total Love A Schwemley [employer]IST-[employer] Work Phone: Start: 10-10-2023 Glucose quantitative blood [...] metabolic panel calcium total Love A Schwemley [employer] Work Phone: Start: 10-10-2023 Culture bacterial quanttative [...] DTaP/Tdap/Td Vaccines (2 - Td or Tdap) [facility] Start: 01-18-2033 [facility] Start: 11-18-2028 Cyanocobalamin vitam in b-12 Vitamin B12 [facility] Start: 11-18-2028 [facility] Start: 03-06-2028 Cyanocobalamin vitam in b-12 Vitamin B12 [facility] Start: 09-10-2027 Cyanocobalamin vitam in b-12 Vitamin B12 [facility] Start: 12-08-2024 Influenza vaccination Influenz a Vaccine (Season Ended) [facility] Start: 11-18-2024 Thyroid stimulating hormone measurement [facility] Start: 11-12-2024 End: 11-12-[address] [facility] Comment on above: Valve Clinic- Initia l Visit - 5M Walk,EKG,KCCQ Start: 10-28-2024 Patient discharge [facility] Start: 07-25-2024 Screening for malign ant neoplasm of colon [facility] Start: 07-18-2024 End: 07-18-2024 ambulatory [facility] Start: 07-18-2024 End: 07-18-2024 Telemedicine consultation with patient 07/18/2024 1:00 PM EDT Telemedicine [facility] [address] [place] [address] Marleen Sigala, H[employer] INVENTORY SPECIALIST-HEAD SCORER, DNP [address] [place] [address] [facility] Start: 07-01-2024 Colsc flx w/rmvl of tumor polyp lesion snare tq COLONOSCOPY W/LESION REMOVAL [facility] Start: 07-01-2024 Endoscopy upper smal l intestine w/biopsy SMALL BOWEL ENDOSCOPY/BIOPSY [facility] Start: 07-01-2024 Patient discharge [facility] Start: 06-18-2024 Evaluation of diagno stic study results [facility] Start: 04-09-2024 Advance Directive Discussion Advance Directive Discussion [facility] Start: 03-28-2024 [facility] Start: 03-06-2024 Lipid panel [facility] Start: 02-28-2024 End: 02-28-2024 ambulatory [facility] Start: 02-28-2024 End: 02-28-2024 Patient encounter procedure 02/28/2024 10:00 AM EST Office Visit [facility] Neurosurgery [address] [facility] [address] [id number] Braulio Oneil MD PhD [address] [id number] [facility] Start: 12-27-2023 End: 12-26-2024 PET+CT Bone from skull base to mid-thigh W [id number] IV NM PET CT bone skull base to mid thigh Imaging Routine Vertebral osteomyelitis (Multi) Discitis, unspecified, thoracic region Expected: 12/27/2023 (Approximate), Expires: 12/26/2024 [facility] Service Area Work Phone: Comment on above: Expected: 12/27/2023 (Approximate), Expires: 12/26/2024 Start: 12-26-2023 End: 12-26-[address] [facility] Start: 12-26-2023 End: 12-26-2023 Telemedicine consultation with patient 12/26/2023 10:20 AM EDT Telemedicine [facility] [address] [place] [address] [place] [address] [place] [address] [facility] Start: 12-18-2023 End: 12-18-2023 ambulatory [facility] Start: 12-18-2023 End: 12-18-2023 Patient encounter procedure 12/18/2023 1:00 PM EDT Office Visit [facility] [address] [place] [phone] Huan Mcdaniel MD [address] [facility], [address] [place] [address] [facility] Start: 12-09-2023 Covid-19 Vaccine ( season) Covid-19 Vaccine ( season) [facility] Start: 12-09-2023 COVID-19 Vaccine ( season) COVID-19 Vaccine ( season) [facility] Start: 12-09-2023 COVID-19 Vaccine ( season) COVID-19 Vaccine ( season) [facility] Start: 12-09-2023 Influenza vaccination [facility] Start: 12-04-2023 End: 11-19-2024 NM Whole body Bone Views [facility] Work Phone: Start: 12-04-2023 End: 12-04-2023 ambulatory [facility] Start: 11-20-2023 End: 08-19-2024 25-hydroxyvitamin D3 [Mass/volume] in Serum or Plasma Vitamin D 25-Hydroxy,Total (for eval of Vitamin D levels) Lab Routine Vitamin D deficiency Expected: 11/20/2023 (Approximate), Expires: 08/19/2024 [facility] Work Phone: Comment on above: Expected: 11/20/2023 (Approximate), Expires: 08/19/2024 Start: 11-20-2023 End: 08-19-2024 Comprehensive metabolic 2000 panel - Serum or Plasma Comprehensive metabolic panel Lab Routine Diabetes 1.5, managed as type 2 (Multi) Expected: 11/20/2023 (Approximate), Expires: 08/19/2024 [facility] Work Phone: Comment on above: Expected: 11/20/2023 [...] 2 (Multi) Expected: 11/20/2023 (Approximate), Expires: 08/19/2024 [facility] Work Phone: Comment on above: Expected: 11/20/2023 (Approximate), Expires: 08/19/2024 Start: 11-16-2023 End: 11-15-2024 Broad Range PCR-Bacteria [facility] Work Phone: Start: 09-12-2023 Screening for malign ant neoplasm of colon [facility] Start: 09-10-2023 Lipid panel Lipid Panel [facility] Start: 08-20-2023 End: 08-20-2023 Telemedicine consultation with patient 08/20/2023 3:30 PM EDT Telemedicine [facility] [address] [place] [phone] Huan Mcdaniel MD [address] [facility], [address] [place] [id number] [facility] Start: 08-10-2023 End: 08-10-2023 Patient encounter procedure 08/10/2023 2:30 PM EDT Appointment [facility] [address] [place] [address] [facility] Start: 07-20-2023 End: 07-20-2023 Patient encounter procedure 07/20/2023 2:30 PM EDT Office Visit [facility] Office [facility] [address] [place] [phone] Marleen Sigala, HUB INVENTORY SPECIALIST-HEAD SCORER, DNP [address] [place], [place] [address] [facility], [address] [place] [address] [facility] Start: 06-06-2023 Hemoglobin A1c measurement [facility] Start: 06-06-2023 Medicare Annual Well ness Visit [facility] Start: 05-25-2023 End: 05-25-2023 Patient encounter procedure 05/25/2023 11:30 AM EST Office Visit [facility] Office [facility] [address] [place] [phone] Marleen Sigala, HUB INVENTORY SPECIALIST-HEAD SCORER, DNP [address] [facility], [address] [place] [id number] [facility] Building Start: 05-23-2023 FUV, Provider: Norman Valdivia, Status: Pen, Time: 11:00 AM FUV, Provider: Norman Valdivia, Status: Pen, Time: 11:00 AM [facility] Work Phone: Start: 12-28-2022 RSV High Risk: (Elde rly (60+) or Population) (1 - 1-dose 75+ series) RSV High Risk: (Elderly (60+) or Population) (1 - 1-dose 75+ series) [facility] Start: 12-28-2022 RSV Vaccine (1 - 1-d ose 75+ series) RSV Vaccine (1 - 1-dose 75+ series) [facility] Start: 12-12-2022 End: 12-12-2022 Patient encounter procedure 12/12/2022 1:00 PM EDT Office Visit [facility] [address] [place] [phone] Huan Mcdaniel MD [address] [facility], [address] [place] [address] [facility] Start: 12-10-2022 Hemoglobin A1c measurement Diabetes: Hemoglobin A1C [facility] Start: 12-08-2022 COVID-19 Vaccine ( season) COVID-19 Vaccine ( season) [facility] Start: 12-08-2022 Influenza vaccination Influenza Vacc ine (#1) [facility] Start: 12-08-2022 [facility] Start: 10-13-2022 End: 10-14-2023 CBC panel - [...] difficile enteritis Expected: 10/13/2022 (Approximate), Expires: 10/20/2022 [facility] Work Phone: Comment on above: Expected: 10/13/2022 (Approximate), Expires: 10/20/2022 Start: 10-13-2022 End: 10-14-2023 Comprehensive metabolic 2000 panel - Serum or Plasma Comprehensive Metabolic Panel Lab Routine 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, without long-term current use of insulin ([facility]) Expected: 10/13/2022 (Approximate), Expires: 10/14/2023 [facility] Work Phone: Comment on above: Expected: 10/13/2022 (Approximate), Expires: 10/14/2023 Start: 06-05-2022 FUV, Provider: Huan Mcdaniel, Status: Pen, Time: 11:00 AM FUV, Provider: Huan Mcdaniel, Status: Pen, Time: 11:00 AM [facility] Work Phone: Start: 05-24-2022 FUV, Provider: Norman Valdivia, Status: Pen, Time: 11:15 AM FUV, Provider: Norman Valdivia, Status: Pen, Time: 11:[address] Work Phone: Start: 03-07-2022 EPV, Provider: Huan Mcdaniel, Status: Pen, Time: 2:00 PM EPV, Provider: Huan Mcdaniel, Status: Pen, Time: 2:00 PM [facility] Work Phone: Start: 03-01-2022 COVID-19 Vaccine (3 - Booster for Rosa series) COVID-19 Vaccine (3 - Booster for Rosa series) [facility] Start: 12-02-2021 VIRFUVHOME, Provider : Huan Mcdaniel, Status: Pen, Time: 3:30 PM VIRFUVHOME, Provider: Huan Mcdaniel, Status: Pen, Time: 3:30 PM [facility] Work Phone: Start: 09-21-2021 Screening for malign ant neoplasm of colon [facility] Start: 09-13-2021 FUV, Provider: Huan Mcdaniel, Status: Pen, Time: 1:00 PM FUV, Provider: Huan Mcdaniel, Status: Pen, Time: 1:00 PM [facility] Work Phone: Start: 09-01-2021 VIRFUVHOME, Provider : Huan Mcdaniel, Status: Pen, Time: 11:30 AM VIRFUVHOME, Provider: Huan Mcdaniel, Status: Pen, Time: 11:30 AM [facility] Work Phone: Start: 06-09-2021 EPV, Provider: Huan Mcdaniel, Status: Pen, Time: 1:00 PM EPV, Provider: Huan Mcdaniel, Status: Pen, Time: 1:00 PM [facility] Work Phone: Start: 05-25-2021 FUV, Provider: Norman Valdivia, Status: Pen, Time: 10:45 AM FUV, Provider: Norman Valdivia, Status: Pen, Time: 10:45 AM [facility] Work Phone: Start: 05-24-2021 FUV, Provider: Rama Villagran, Status: Pen, Time: 11:00 AM FUV, Provider: Rama Villagran, Status: Pen, Time: 11:00 AM [facility] Work Phone: Start: 05-06-2021 EPV, Provider: Huan Mcdaniel, Status: Pen, Time: 4:00 PM EPV, Provider: Huan Mcdaniel, Status: Pen, Time: 4:00 PM [facility] Work Phone: Start: 02-04-2021 VIRFUVHOME, Provider : Huan Mcdaniel, Status: Pen, Time: 4:30 PM VIRFUVHOME, Provider: Huan Mcdaniel, Status: Pen, Time: 4:30 PM [facility] Work Phone: Start: 11-02-2020 EPV, Provider: Huan Mcdaniel, Status: Pen, Time: 2:30 PM EPV, Provider: Huan Mcdaniel, Status: Pen, Time: 2:30 PM [facility] Work Phone: Start: 02-15-2020 Screening for malign ant neoplasm of breast Mammogram [facility] Start: 02-06-2020 Thyroid stimulating hormone measurement TSH Level [facility] Start: 02-14-2019 Echocardiography Echocardiogram [facility] Work Phone: Start: 02-14-2019 MG Breast screening Mamm - Scr eening Mammogram w/ Tomosynthesis [facility] Work Phone: Start: 03-04-2014 Zoster Vaccines (2 of 3) Zoste r Vaccines (2 of 3) [facility] Start: 03-04-2014 [facility] Start: 12-28-2012 Screening for osteoporosis Bone Density Screening [facility] Start: 2007 RSV patient s and/or patients aged 60+ years (1 - 1-dose 60+ series) RSV patients and/or patients aged 60+ years (1 - 1-dose 60+ series) [facility] Start: 2007 [facility] Start: 12-28-1997 Pneumococcal Vaccine : 50+ (1 of 1 - PCV) Pneumococcal Vaccine: 50+ (1 of 1 - PCV) [facility] Start: 12-28-1997 Shingrix Vaccine (1 of 2) Shingrix Vaccine (1 of 2) [facility] Start: 12-28-1992 Diabetes Screening Diabetes Screenin g [facility] Start: 12-28-1969 DTaP/Tdap/Td Vaccine s (1 - Tdap) DTaP/Tdap/Td Vaccines (1 - Tdap) [facility] Start: 12-28-1966 Urine microalbumin profile DTaP,Tdap,Td Vaccine (1 - Tdap) [facility] Start: 12-28-1966 Urine screening for protein [facility] Start: 12-28-1965 Anxiety Screening Anxiety Screening [facility] Start: 12-28-1965 Depression Screening Depression Scre ening [facility] Start: 12-28-1965 Hepatitis C screening [facility] Start: 12-28-1957 Diabetic foot examination [facility] Start: 12-28-1957 Glaucoma screening [facility] Start: 12-28-1957 Ophthalmic examinati on and evaluation Diabetes: Retinopathy Screening [facility] Start: 1947 Annual wellness visit Medicare Initial Physical (IPPE) [facility] Start: 1947 Diabetes: Celiac Dis ease Screening Diabetes: Celiac Disease Screening [facility] Start: 1947 Medicare Annual Well ness Visit Medicare Annual Wellness Visit (AWV) [facility] Start: 1947 Screening for malign ant neoplasm of colon [facility] Start: 1947 Screening for osteoporosis [facility] Start: 1947 Thyroid stimulating hormone measurement TSH Level [facility] Start: 1947 [facility] End: 11-15-2023 Art Therapy eval and treat [facility] Work Phone: End: 01-01-2025 C reactive protein [Mass/volume] in Serum or Plasma [facility] Work Phone: End: 12-26-2024 C reactive protein [Mass/volume] in Serum or Plasma C-reactive protein Lab Routine Vertebral osteomyelitis (Multi) Once a week for 3 Occurrences starting 12/27/2023 until 12/26/2024 [facility] Work Phone: Comment on above: Once a week for 3 Oc currences starting 12/27/2023 until 12/26/2024 End: 01-01-2025 CBC W Auto Differential panel - Blood [facility] Service Area Work Phone: End: 12-26-2024 CBC W Auto Differential panel - Blood CBC and Auto Differential Lab Routine Vertebral osteomyelitis (Multi) Once a week for 3 Occurrences starting 12/27/2023 until 12/26/2024 [facility] Work Phone: Comment on above: Once a week for 3 Oc currences starting 12/27/2023 until 12/26/2024 CBC W Auto Different ial panel - Blood [facility] End: 01-01-2025 Comprehensive metabolic 2000 panel - Serum or Plasma [facility] Work Phone: End: 12-26-2024 Comprehensive metabolic 2000 panel - Serum or Plasma Comprehensive metabolic panel Lab Routine Vertebral osteomyelitis (Multi) Once a week for 3 Occurrences starting 12/27/2023 until 12/26/2024 [facility] Work Phone: Comment on above: Once a week for 3 Oc currences starting 12/27/2023 until 12/26/2024 ECG 12 lead ECG 12 lead ECG STAT 10/10/2023 1:16 AM EDT [facility] Work Phone: Electrocardiogram, 12-lead PRN ACS symptoms Electrocardiogram, 12-lead PRN ACS symptoms ECG Routine As needed until discontinued starting 10/10/2023 [facility] Work Phone: Comment on above: As needed until disc ontinued starting 10/10/2023 Electrocardiogram, 12-lead PRN ACS symptoms [facility] Work Phone: End: 10-10-2023 Extra Urine Draper Tube Extra Urine Draper Tube Lab Timed Once for 1 Occurrences starting 10/10/2023 until 10/10/2023 [facility] Work Phone: Comment on above: Once for 1 Occurrenc es starting 10/10/2023 until 10/10/2023 Glucose [Mass/volume ] in Serum or Plasma POCT Glucose Point of Care Testing - Docked Device Routine As needed (Lab) until discontinued starting 10/10/2023 [facility] Work Phone: Comment on above: As needed (Lab) unti l discontinued starting 10/10/2023 Glucose [Mass/volume ] in Serum or Plasma [facility] Work Phone: End: 10-14-2023 Hemoglobin.gastrointesti nal [Presence] in Stool --1st specimen Occult Blood, Stool Microbiology Routine Once (Lab) for 1 Occurrences starting 10/14/2023 until 10/14/2023 [facility] Area Work Phone: Comment on above: Once (Lab) for 1 Occ urrences starting 10/14/2023 until 10/14/2023 Lipid panel Lipid Panel [facility] Work Phone: Comment on above: Approx [id number] End: 11-16-2023 Methicillin resistant Staphylococcus aureus [Presence] in Nose by Organism specific culture [facility] Work Phone: End: 10-15-2023 Music Therapy eval and treat Music Therapy eval and treat Therapeutic Recreation Orderables Routine Until therapy completed for 1 Occurrences starting 10/15/2023 until 10/15/2023 [facility] Service Area Work Phone: Comment on above: Until therapy comple kayla for 1 Occurrences starting 10/15/2023 until 10/15/2023 End: 11-19-2023 Music Therapy eval and treat [facility] Work Phone: Patient Education GI Bleeding Ca uses and Tests [facility] Work Phone: Patient referral [facility] Work Phone: End: 11-13-2023 Prepare RBC: 1 Units [facility] Work Phone: End: 11-13-2023 Surgical pathology study [facility] Work Phone: End: 10-10-2023 Urinalysis [...] Microscopic Lab STAT 10/10/2023 3:28 AM EDT [facility] Work Phone: End: 11-22-2023 Vancomycin [Mass/volume] in Serum or Plasma [facility] Work Phone: End: 01-01-2025 Vancomycin [Mass/volume] in Serum or Plasma --trough [facility] Work Phone: End: 12-26-2024 Vancomycin [Mass/volume] in Serum or Plasma --trough Vancomycin, trough Lab Routine Vertebral osteomyelitis (Multi) Once a week for 3 Occurrences starting 12/27/2023 until 12/26/2024 [facility] Work Phone: Comment on above: Once a week for 3 Oc currences starting 12/27/2023 until 12/26/2024 [facility] Corporate Work Phone: NEGATED: Highlighted row has been ruled out! Planned Goals not documented [facility] Work Phone: Immunizations Immunization Date Immunization Notes Care Provider Fa [facility] 01-02-2024 influenza, high dose seasonal, preservative-free Dominic Lim [facility] 01-18-2023 influenza, seasonal, injectable Huan Mcdaniel MD Work Phone: [facility] Work Phone: 01-18-2023 Pneumococcal conjuga te vaccine, 20-valent (PREVNAR 20) Huan Mcdaniel MD Work Phone: [facility] Work Phone: 01-18-2023 tetanus toxoid, redu sarah diphtheria toxoid, and acellular pertussis vaccine, adsorbed Huan Mcdaniel MD Work Phone: [facility] 01-18-2023 influenza virus vacc ine, unspecified formulation Flavio Miles DO Work Phone: [facility] Work Phone: 01-04-2022 influenza, high dose seasonal, preservative-free Huan Mcdaniel Work Phone: [facility] Work Phone: Comment on above: Series: 01-04-2022 Influenza, High-dose Seasonal, Quadrivalent, Preservative Free Huan Mcdaniel MD Work Phone: [facility] Work Phone: 01-04-2022 Pfizer COVID-19 Vac Bivalent 30 MCG/0.3ML Intramuscular Suspension Huan Banerjeeyder Work Phone: [facility] Work Phone: 01-04-2022 Pfizer-BioNTech COVI D-19 Vacc 30 MCG/0.3ML Intramuscular Suspension Huan Banerjeeyder Work Phone: [facility] Work Phone: Comment on above: Series: 01-04-2022 influenza virus vacc ine, unspecified formulation Huan Mcdaniel MD Work Phone: [facility] Work Phone: 02-10-2021 Pfizer-BioNTech COVI D-19 Vacc 30 MCG/0.3ML Intramuscular Suspension Huan Mcdaniel Work Phone: [facility] Work Phone: 01-20-2021 Fluzone High-Dose Quadrivalent 0.7 ML Intramuscular Suspension Prefilled Syringe Huan Mcdaniel Work Phone: [facility] Work Phone: 06-11-2020 Rosa COVID-19 Vac cine 0.5 ML Intramuscular Suspension Huan Mcdaniel Work Phone: [facility] Comment on above: Series: 01-30-2020 Fluzone High-Dose Quadrivalent 0.7 ML Intramuscular Suspension Prefilled Syringe Huan Mcdaniel [facility] Work Phone: Comment on above: Series: 01-30-2020 influenza, seasonal, injectable Huan Mcdaniel [facility] Work Phone: 01-10-2019 influenza, high dose seasonal, preservative-free Huan Mcdaniel [facility] Comment on above: Series: 12-28-2017 influenza virus vacc ine, unspecified formulation; Translations: [influenza virus vaccine, unspecified formulation] Huan Mcdaniel [facility] Work Phone: Comment on above: Series: 12-28-2017 influenza, high dose seasonal, preservative-free Huan Mcdaniel MD Work Phone: [facility] Work Phone: 01-15-2017 influenza, high dose seasonal, preservative-free Huan Mcdaniel Work Phone: [facility] Work Phone: 05-23-2016 pneumococcal conjuga te vaccine, 13 valent Huan Mcdaniel [facility] Comment on above: Series: 02-22-2016 influenza virus vacc ine, unspecified formulation Huan Mcdaniel Work Phone: [facility] Work Phone: 01-29-2016 influenza, high dose seasonal, preservative-free Huan Mcdaniel Work Phone: [facility] Work Phone: 01-07-2014 pneumococcal polysaccharide vaccine, 23 valent Huan Mcdaniel [facility] Work Phone: Comment on above: Series: 01-07-2014 zoster vaccine, live Huan Mcdaniel [facility] Work Phone: Comment on above: Series: 02-25-2009 novel influenza-H1N1 -09, preservative-free, injectable Huan Mcdaniel Work Phone: [facility] Work Phone: 02-15-2007 influenza virus vacc ine, whole virus Huan Mcdaniel Work Phone: [facility] Work Phone: Payers Date Payer Category Payer Medicare [id number] 2023 Self-pay 2023 Medicare (Managed Care) 1.2. [id number] 2023 Unknown 2023 Unknown [id number] 2021 Medicare ANTHEM MEDICARE ANTH MEDICARE ADVANTAGE [id number] 2021-Present [address] [place] [address] [id number] .[id number] 2021 Unknown [id number] 1945 Unknown [id number] 2.16.840.1.357677.3.579.2 .1069 1945 Unknown [id number] 2.16.840.1.299997.3.579.2 .124 1945 Unknown [id number] 2.16.840.1.311174.3.579.2 .124 1945 Unknown [id number] 2.16.840.1.437653.3.579.2 .1242 1945 Unknown [id number] 2.16.840.1.779782.3.579.2 .1244 1945 Unknown [id number] 2.16.840.1.952155.3.579.2 .1244 1945 Unknown [id number] 2.16.840.1.081092.3.579.2 .1244 1945 Unknown [id number] 2.16.840.1.209431.3.579.2 .1244 1945 Unknown [id number] 2.16.840.1.738405.3.579.2 .1244 1945 Unknown [id number] 2.16.840.1.922018.3.579.2 .1244 1947 Unknown [id number] 2.16.840.1.274756.3.579.2 .1243 1945 Unknown [id number] 2.16.840.1.848527.3.579.2 .1243 1945 Unknown [id number] 2.16.840.1.629440.3.579.2 .1243 1945 Unknown [id number] 2.16.840.1.978071.3.579.2 .1244 Unknown [id number] 2.16.840.1.143322.3.579.2 .462 Unknown [id number] 2.16.840.1.954785.3.579.2 .462 Unknown [id number] 2.16.840.1.689658.3.579.2 .462 Unknown [id number] 2.16.840.1.779374.3.579.2 .462 Unknown [id number] 2.16840.1.387058.3.579.2 .462 Unknown [id number] 2.840.1.080118.3.579.2 .462 Unknown [id number] 2.840.1.199650.3.579.2 .462 Unknown [id number] 2.840.1.708937.3.579.2 .462 Unknown [id number] 2.840.1.596191.3.579.2 .462 Unknown [id number] 2.840.1.343220.3.579.2 .462 Unknown [id number] 2.840.1.977545.3.579.2 .462 Unknown [id number] 2.840.1.003649.3.579.2 .462 Unknown [id number] 2.840.1.556353.3.579.2 .462 Unknown [id number] 2.840.1.943653.3.579.2 .462 Unknown [id number] 2.16840.1.606127.3.579.2 .462 Unknown [id number] 2.16.840.1.450874.3.579.2 .462 Unknown [id number] 2.16840.1.189233.3.579.2 .462 Unknown [id number] 2.840.1.600069.3.579.2 .462 Unknown [id number] 2.16.840.1.297705.3.579.2 .462 Unknown [id number] 2.16.840.1.001817.3.579.2 .462 Unknown [id number] 2.16.840.1.119415.3.579.2 .462 Unknown [id number] 2.16.840.1.348197.3.579.2 .462 Unknown [id number] 2.16.840.1.510226.3.579.2 .462 Unknown [id number] 2.16.840.1.066083.3.579.2 .462 Unknown [id number] 2.16840.1.177507.3.579.2 .462 Unknown [id number] 2.16.840.1.167059.3.579.2 .462 Unknown [id number] 2.840.1.866530.3.579.2 .462 Unknown [id number] 2.840.1.004840.3.579.2 .462 Unknown [id number] 2.16840.1.321194.3.579.2 .462 Unknown [id number] 2.16.840.1.148980.3.579.2 .462 Unknown [id number] 2.16840.1.746675.3.579.2 .462 Unknown [id number] 2.16840.1.449775.3.579.2 .462 Unknown [id number] 2.16840.1.824054.3.579.2 .462 Unknown [id number] 2.16.840.1.398518.3.579.2 .462 Unknown [id number] 2.16.840.1.870725.3.579.2 .462 Unknown [id number] 2.16.840.1.827392.3.579.2 .462 Unknown [id number] 2.16840.1.436110.3.579.2 .462 Social History Date Type Detail Facility - - [facility] Work Phone: Start: 10-13-2022 End: 11-16-2023 Never a smoker Never a smoker [facility] Work Phone: Start: 08-31-2022 End: 10-21-2024 Tobacco smoking status NHIS Never smoked tobacco [facility] Work Phone: Start: 08-31-2022 Tobacco use and exposure Smokeless tobacco non-user [facility] Work Phone: Start: 10-13-2022 End: 12-04-2023 Alcohol intake Lifetime non-drinker (finding) [facility] Work Phone: Start: 10-13-2022 End: 11-16-2023 Tobacco use panel [facility] Work Phone: Start: 1945 [facility] Start: 10-03-2022 End: 02-28-2024 Exposure to SARS-CoV-2 (event) Not sure [facility] Start: 04-10-2023 End: 08-02-2023 Exposure to SARS-CoV-2 (event) Unable to assess [facility] How often to you hav e a drink containing alcohol? Never [facility] How many standard drinks containing alcohol do you have on a typical day? Patient does not drink [facility] Work Phone: In the past 12 months, was there a time when you were not able to pay the mortgage or rent on time? No [facility] Start: 06-13-2024 End: 07-15-2024 Sex Female (finding) [facility] Start: 1945 Sex Assigned At Female [facility] Tobacco smoking status NHIS Tobacco smoking consumption unknown [facility] NEGATED: Highlighted row Not [facility] Medical Equipment Procedure Code Equipment Code Equipment [...] status health issues are not documented Disease [facility] Work Phone: Mental Status Date Assessment Result Facility 10-28-2024 Cognitive function Level Of Cons ciousness Sedated [facility] Work Phone: 10-28-2024 Cognitive function Voice/Name [facility] Work Phone: 07-01-2024 Cognitive function Voice/Name [facility] Work Phone: 03-28-2024 Cognitive function Level Of Cons ciousness Awake;Alert;Appropriate ;Follows Commands [facility] Work Phone: NEGATED: Highlighted row Cognitive function [Interpretation] Cognitive status health issues are not documented Disease [facility] Work Phone: Clinical Notes 02-14-2019 to 10-28-2024 Telephone Encounter - Gamaliel Tilley MA - 09/19/2024 3:56 PM EDTTelephone Encounter - Gamaliel Tilley MA - 09/19/2024 3:56 PM EDTTelephone Encounter - Pearl Dutta - 09/17/2024 3:47 PM EDT Note Date & Type Note Facility 10-28-2024 Consult note [facility] 10-28-2024 Consult note [facility] 10-28-2024 Procedure note [facility] 10-28-2024 Procedure note [facility] 10-28-2024 History and physi sofi note [facility] 10-28-2024 Note [facility] 10-28-2024 Consult note [facility] 09-19-2024 Telephone encount er Note Spoke with nurse at [facility] [phone], [address] They're unable to arrange transportation for 09/24/24 office visit and reschedule to 11/12/24 10:30am. I faxed appt reminder with our address on it to [phone]. [facility] 09-19-2024 Miscellaneous Notes Formattin g of this note might be different from the original. Spoke with nurse at [facility] [phone], [address]. They're unable to arrange transportation for 09/24/24 office visit and reschedule to 11/12/24 10:30am. I faxed appt reminder with our address on it to [phone]. Images from the original note were not included. TAVR clinic referral received from Dr. Milo Mendoza. Chart reviewed, scanned records and imaging appreciated. 78 yo female with PMHx that includes HFrEF, a fib (previously on xarelto), DM, renal disease, anemia, anxiety/depression, OM, OA, GIB, PUD, COPD. Resides at [facility] since 6 months ago. Wheelchair bound, does stand for brief transfers with assist. Notes she gave up will to live about 5 years ago due to frustrations with family situations, and just had gradual debilitation. 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 Of note rivaraxoban was stopped prior due [...] 24 at 1030 - 1000 arrival - [facility], [facility], 3rd floor She would like to take appt and is going to speak with her charge nurse to inquire on transportation arrangements. ECHO 08/13/24 Mean/peak 40? 1+ AI EF 40-45% Laurent Garza APRN.CNP documented in this encounter [facility] 09-19-2024 Telephone encount er Note Images from the original note were not included. TAVR clinic referral received from Dr. Milo Mendoza. Chart reviewed, scanned records and imaging appreciated. 78 yo female with PMHx that includes HFrEF, a fib (previously on xarelto), DM, renal disease, anemia, anxiety/depression, OM, OA, GIB, PUD, COPD. Resides at [facility] since 6 months ago. Wheelchair bound, does stand for brief transfers with assist. Notes she gave up will to live about 5 years ago due to frustrations with family situations, and just had gradual debilitation. 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 Of note rivaraxoban was stopped prior due [...] 24 at 1030 - 1000 arrival - [facility], 3rd floor She would like to take appt and is going to speak with her charge nurse to inquire on transportation arrangements. ECHO 08/13/24 Mean/peak 40? 1+ AI EF 40-45% Laurent Garza APRN.CNP [facility] 09-17-2024 Telephone encount er Note Referral received and scanned to chart. Fax request was sent to [facility] requesting images and reports. A message was also sent to Laurent Garza CNP in regards to the referral. Non-rheumatic aortic valve stenosis (possible TAVR candidate). [facility] 09-17-2024 Miscellaneous Notes Formattin g of this note might be different from the original. Referral received and scanned to chart. Fax request was sent to [facility] requesting images and reports. A message was also sent to Luarent Garza CNP in regards to the referral. Non-rheumatic aortic valve stenosis (possible TAVR candidate). documented in this encounter [facility] 07-01-2024 History and physi sofi note Note Date/Time July 01, 2024 12:39pm [facility] Medical Records Department [address] [place] [address] History & Physical Exam 07/01/24 1237 MR#: [id number] Acct: [id number] Name: DARYN SHAH BLANE Rep #:[id number] 5 : 1945 78 From: Jacinto Munoz DO PCP: April Mullen MD Status:[facility] Location: [place] [address] HPI - General General Date of Admission: [...] she also reports prior to admission to [facility] she had 30-40lb of peripheral edema [...] - CKD (GFR 52) - Easy bruising [facility] Medical History (Updated 07/01/24 @ 12:[address] Casey Friend, DO) Lives in [facility] Wears glasses Wears partial dentures Marijuana use [...] 4. Colonoscopy and EGD - scheduled at [facility] with Dr. Mnuoz (Golyte bowel prep) 5. Follow-up in the office 1-2 weeks post procedure 07/01/24 1718 <Electronically signed by Jacinto Munoz DO> Cosigner Signature (if applicable): CC: April Mullen MD; Jacinto Munoz DO~ Signed [facility] Work Phone: 1(148) 869-545603-25-2025 Consult note Author Manuel Campuzano [facility] Note Date/Time July 01, 2024 12: 33pm [facility] Medical Records Department [address] [place] [address] Pre-Anesthesia Evaluation 07/01/24 1219 MR#: [id number] Acct: [id number] Name: DARYN SHAH Rep #:[id number] : 1945 78 From: Manuel Campuzano MD PCP: April Mullen MD Status:REG SDC Y Race: C Location: [place] [address] ASA Classification* ASA Classification ASA Classification: 3 [...] Procedure(s): CSCOPE/EGD Anesthesia History Anesthesia History - blunger loader: Anesthesia History - blunger loader Hx Hospitalization Yes: 12/2023 PNEUMONIA AND 06/30/24 [...] sips of water?: No PONV PONV - blunger loader: PONV - blunger loader Female Yes 06/30/24 11:18 HX of Motion [...] 07/01/24 11:58 Respiratory Assessment Respiratory Assessment - blunger loader: Respiratory Tract Infection Hx - blunger loader Hx Respiratory Tract Infection No 06/30/24 11:18 STOP Sleep Apnea STOP Sleep Apnea - blunger loader: STOP Sleep Apnea - blunger loader Hx Hypertension Yes 06/30/24 11:18 Hx Sleep [...] Tobacco Use History Tobacco Use History - blunger loader: Tobacco Use History - blunger loader Tobacco Use Smoking Status Never smoker 06/30/24 11:18 Hx Tobacco Use No 06/30/24 11:18 Years Smoking Packs Smoked per Day Smoking Cessation Date was within the last 15 years Hx Smoking Cessation Date Hx Smoking Cessation Counseling Hematologic Medial History Hematologic Hx - blunger loader: Hematologic Medical Hx - soot blower Hx of Blood Transfusion No 06/30/24 11:18 [...] confused, unrespo /Reproduction History /Reproductive History - blunger loader: /Reproductive Hx- blunger loader Hx Now No 06/30/24 11:18 Gestational Age (in weeks): EDC: Hx Hx Para Hx Section SAB No 06/30/24 11:18 [facility] Medical History Lives in [facility] Wears glasses Wears partial dentures Marijuana use [...] no additional complaints, except as documented. 07/01/24 5208 <Electronically signed by Manuel farrar MD> Date _ Manuel Campuzano MD Cosigner Signature: Date CC: ~ Signed [facility] Work Phone: 1(603) 313-873603-25-2025 Procedure note [facility] Medical Records Department [address] [place] [address] Colonoscopy Report MR#: [id number] Acct: [id number] Name: DARYN SHAH BLANE Rep #:[id number] : 1945 78 From: Jacinto Munoz DO PCP: April Mullen MD Status:[facility] Patient Name: Daryn Shah Procedure Date: 07/01/2024 [...] one hemostatic clip was successfully placed. 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 There was no bleeding at the end of the procedure. Impression: - Diverticulosis in the recto-sigmoid colon, in the sigmoid colon and in the descending colon. - One 20 mm polyp in the cecum, removed with a hot snare. Resected and retrieved. Clip was placed. Clip assistant passenger locomotive engineer: [employer]. Recommendation: - Repeat colonoscopy in 3 years for surveillance. - Continue present medications. Procedure Code(s): --- Professional --- 65821, Colonoscopy, flexible; with removal of tumor(s), polyp(s), or other lesion(s) by snare technique CPT copyright 2021 [employer]. All rights reserved. The codes documented in this report are preliminary and upon rn lactation review may be revised to meet current compliance requirements. Jacinto Munoz DO 07/01/2024 2:07:31 PM This report has been signed electronically. Number of Addenda: 0 Note Initiated On: 07/01/2024 1:21 PM 07/01/24 1407 Date _ Jacinto Munoz DO Cosigner Signature: Date (if indicated) CC: April Mullen MD; Jacinto Munoz DO ~ Date Dictated: 07/01/24 1321 Date Transcribed: Obedience Trainer: RF Signed [facility]03-25-2025 Procedure note [facility] Medical Records Department [address] [place] [address] Operative Report - CC Letter MR#: [id number] Acct: [id number] Name: DARYN SHAH BLANE Rep #:[id number] : 1945 78 From: Jacinto Munoz DO PCP: April Mullen MD Status:REG [facility] 07/01/2024 April Mullen Md Re : Colonoscopy [...] Resected and retrieved. Clip was placed. 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 Recommendations : - Repeat colonoscopy in 3 [...] ~ Date Dictated: 07/01/24 1321 Date Transcribed: Obedience Trainer: ADAMA Signed [facility]03-25-2025 Consult note [facility] Medical Records Department [address] [place] [address] Anesthesia Postop Eval I 07/01/24 1406 MR#: [id number] Acct: [id number] Name: DARYN SHAH BLANE Rep #:[id number] : 1945 78 From: Jones Greer PCP: April Mullen MD Status:REG SDC Y Race: C Location: [place] [address] Anesthesia: Postop Eval I Current Vital Signs [...] Jones Acevedo Signature: Date CC: ~ Signed [facility]03-25-2025 Procedure note [facility] Medical Records Department [address] [place] [address] EGD Report MR#: [id number] Acct: [id number] Name: DARYN SHAH Rep #:[id number] : 1945 78 From: Jacinto Munoz DO PCP: April Mullen MD Status:REG [facility] Patient Name: Daryn Shah Procedure Date: 07/01/2024 [...] check healing. Procedure Code(s): --- Professional --- 16186, Small intestinal endoscopy, enteroscopy beyond second portion of duodenum, not including ileum; with biopsy, single or multiple CPT copyright 2021 [employer]. All rights reserved. The codes documented in this report are preliminary and upon rn lactation review may be revised to meet current compliance requirements. Jacinto Munoz DO 07/01/2024 2:05:15 PM This report has been signed electronically. Number of Addenda: 0 Note Initiated On: 07/01/2024 1:01 PM 07/01/241404 Date _ Jacinto Munoz DO Cosigner Signature: Date (if indicated) CC: April Mullen MD; Jacinto Munoz DO ~ Date Dictated: 07/01/24 1301 Date Transcribed: Obedience Trainer: RF Signed [facility]03-25-2025 Procedure note [facility] Medical Records Department [address] [place] [address] Operative Report - CC Letter MR#: [id number] Acct: [id number] Name: DARYN SHAH BLANE Rep #:[id number] : 1945 78 From: Jacinto Munoz DO PCP: April Mullen MD Status:REG [facility] 07/01/2024 April Mullen Md Re : Upper [...] ~ Date Dictated: 07/01/24 1301 Date Transcribed: Obedience Trainer: ADAMA [facility]03-25-2025 Evaluation note* Diagnosis Onset Date Resolution Status [...] 2024 2:38pm Hypertension chronic October 09 2:38pm [facility] Work Phone: 1(253) [phone] Evaluation note* Diagnosis Onset Date Resolution Status [...] Gastric ulcer acute October 28, 2024 10:27am [facility] Work Phone: 1(728) 303-817303-25-2025 History and physical note [facility] Medical Records Department [address] [place] [address] History & Physical Exam 07/01/24 1237 MR#: [id number] Acct: [id number] Name: DARYN SHAH Rep #:[id number] : 1945 78 From: Jacinto Friend DO PCP: April Mullen MD Status:REG [facility] Location: [place] [address] HPI - General General Date of Admission: [...] she also reports prior to admission to [facility] she had 30-40lb of peripheral edema [...] - CKD (GFR 52) - Easy bruising [facility] Medical History (Updated 07/01/24 @ 12:[address] Casey Friend, DO) Lives in [facility] Wears glasses Wears partial dentures Marijuana use [...] 4. Colonoscopy and EGD - scheduled at [facility] with Dr. Munoz (Golyte bowel prep) 5. Follow-up in the office 1-2 weeks post procedure 07/01/24 1239 Cosigner Signature (if applicable): CC: April Mullen MD; Jacinto Munoz DO~ Signed [facility]03-25-2025 [facility]03-25-2025 Consult note [facility] Medical Records Department [address] [place] [address] Pre-Anesthesia Evaluation 07/01/24 1219 MR#: [id number] Acct: [id number] Name: DARYN SHAH Rep #:[id number] : 1945 78 From: Manuel Campuzano MD PCP: April Mullen MD Status:REG SD Y Race: C Location: [place] [address] ASA Classification* ASA Classification ASA Classification: 3 [...] Procedure(s): CSCOPE/EGD Anesthesia History Anesthesia History - blunger loader: Anesthesia History - blunger loader Hx Hospitalization Yes: 12/2023 PNEUMONIA AND 06/30/24 [...] sips of water?: No PONV PONV - blunger loader: PONV - blunger loader Female Yes 06/30/24 11:18 HX of Motion [...] 07/01/24 11:58 Respiratory Assessment Respiratory Assessment - blunger loader: Respiratory Tract Infection Hx - blunger loader Hx Respiratory Tract Infection No 06/30/24 11:18 STOP Sleep Apnea STOP Sleep Apnea - blunger loader: STOP Sleep Apnea - blunger loader Hx Hypertension Yes 06/30/24 11:18 Hx Sleep [...] Tobacco Use History Tobacco Use History - blunger loader: Tobacco Use History - blunger loader Tobacco Use Smoking Status Never smoker 06/30/24 11:18 Hx Tobacco Use No 06/30/24 11:18 Years Smoking Packs Smoked per Day Smoking Cessation Date was within the last 15 years Hx Smoking Cessation Date Hx Smoking Cessation Counseling Hematologic Medial History Hematologic Hx - blunger loader: Hematologic Medical Hx - soot blower Hx of Blood Transfusion No 06/30/24 11:18 [...] confused, unrespo /Reproduction History /Reproductive History - blunger loader: /Reproductive Hx- blunger loader Hx Now No 06/30/24 11:18 Gestational Age (in weeks): EDC: Hx Hx Para Hx Section SAB No 06/30/24 11:18 PFSH Medical History Lives in [facility] Wears glasses Wears partial dentures Marijuana use [...] MD Cosigner Signature: Date CC: ~ Signed [facility]01-20-2025 Evaluation note* Diagnosis Onset Date Resolution Status Admit Date Anemia noneactive April 28, 2024 10:28am [facility] Work Phone: 1(366) 166-995801-20-2025 Evaluation note* Diagnosis Onset Date Resolution Status Admit Date Anemia noneactive April 28, 2024 10:28am Anemia acute July 01 11:19am [facility] Work Phone: 1(865) 453-967301-20-2025 Evaluation note* Diagnosis Onset Date Resolution Status Admit Date Anemia noneactive April 28, 2024 10:28am Anemia acute July 01 11:19am A-fib chronic July 23 10:52am Chronic HFrEF (heart failure with reduced ejection fraction) chronic July 23, 2024 10:52am Diabetes chronic July 23 10:52am Hypertension chronic July 23, 2024 10:52am Anemia acute July 31 8:52am Gastric ulcer acute July 31, 2024 8:52am [facility] Work Phone: 1(151) 422-266111-21-2024 History of Present illness Narrative* Braulio Oneil MD PhD - 02/28/2024 10:00 AM EST Images from the original note were not included. [facility] [place] Department of Neurological Surgery Post Operative Patient [...] surgery. She does physical therapy at her [facility]. I am concerned that she is very [...] Sincerely, Braulio Oneil MD PhD Attending Neurosurgeon [facility] [employer] Developer of Neurological Surgery [facility] [employer] [place] [address] [place] [address] [place] [address] Office: [facility] Work Phone: 1(757) 989-403710-08-2024 History of Present illness Narrative* Megan Osorio, [...] that time she had been admitted to [facility] for AMS and is now returned to her facility. They are sending discharge paperwork and recent vanc trough, CBC, CMP. Reports having COVID and PNA at OSH. Reports she was continuing to get her IV abx at [facility]. Was in quarantine for a while at the rehab. Now back in her old room and feels at home. Was told she had a weak heart, and is looking into getting a pci security consultant for her Afib. Biggest regret is feels [...] ceftriaxone today. No back pain while at [facility] [place] Also spoke popeye/ Yony, wound nurse, confirmed incision is healed and intact. Records faxed from her recent hospitalization at [facility], admitted from 12/30 to ~01/06 for AMS, [...] needed Megan Osorio, DO documented in this [facility] Work Phone: 1(558) 750-274710-01-2024 [facility]09-18-2024 History of Present illness Narrative* Megan [...] plans are to stay at the facility penitentiary as she enjoys it there and feels [...] results Megan Osorio DO documented in this [facility] Work Phone: 1(417) 452-876308-27-2024 History of Present illness Narrative* Eliza Alonso PA-C - 12/04/2023 10:00 AM EDT Images from the original note were not included. [facility] [place] Department of Neurological Surgery Post Operative Patient [...] surgical incision with good fibrotic tissue spanning. [place] removed at visit today with patient tolerating [...] directly. Sincerely, JANAK Tian PA-C Associate Physician Managing Partner [employer] Content [employer] [place], Neurosurgery Clinical Sap Abap Developer [facility] [employer] [facility] [place] [address] [place] [address] documented in this [facility] Work Phone: 1(689) 839-629408-13-2024 Nurse Note* Ramos Phillip RN - 11/20/2023 [...] reach. Wolf Arellano LPN [facility]: 1(717) 688-289908-13-2024 History of Present illness Narrative* Ansley Anthony - 11/20/2023 1:37 PM EDT Spiritual Care Visit Clinical Encounter Type Visited With: Patient Routine Visit: Follow-up Continue Visiting: Yes Surgical Visit: Post-op Referral From: Nurse, Family, Patient Referral To: [facility] Hoahaoism Encounters Hoahaoism Needs: Prayer Values/Beliefs Cultural Requests During Hospitalization: [...] (Level of Unmet Needs) Existential Struggle: Some Spiritual/Hoahaoism Struggle: Some Legacy: Some Relationships: Some Fear [...] calming presence Methods: Offer emotional support, Offer spiritual/cheondoism support, Offer support Interventions: Active listening, Assist with identifying strengths, Discuss concerns, Facilitate life review, Prayer for healing Follow up spiritual care visit with patient this morning. Patient engaged director of software development in life review and story telling. Pt has some grief and loss that she is working through. Patient shared her feelings and concerns and hopes. [facility] listened and provided support, companionship, prayer and listening. Patient may be discharged today. [facility] will continue to see her if that [...] toxicity. Linda Grace PharmD * Sophie Ramirez, MAYCO-HEAD SCORER - 11/20/2023 9:42 AM EDT Subjective Patient endorses feelings of depression. She states she is depressed but this is nothing new. Shestates it wouldn't be the worst thing if I , but she denies suicidal ideation and is thinkingabout plans to reconnect with her gnosticist and is interested in looking a senior centers for socialization. She agrees with the plan to increase Effexor dose. She is hopeful her strength will improve wh ile at rehab. She expresses concern for her son who is currently hospitalized. [facility] is seeing patient today as well. Patient [...] Results Component Value Date TSH 0.45 11/19/2023 [id number] 374 11/19/2023 VITD25 51 11/19/2023 HGBA1C 7.2 [...] PLACEMENT. COMPARISON: 11/13/2023 chest radiograph ACCESSION NUMBER(S): [id number] ORDERING CLINICIAN: RU ORTEGA FINDINGS: AP radiograph [...] as stated. This study was interpreted at [facility], [place], [place]. MACRO: None Signed by: Pastor Barrientos 11/17/2023 6:46 AM Dictation workstation: [id number] DATA: EKG: QTC Encounter Date: 11/09/23 ECG 12 Lead Result Value Ventricular Rate 73 Atrial Rate 73 UT Interval 196 QRS Duration 106 QT Interval 384 QTC Calculation(Bazett) 423 P [place] -24 R [place] -46 T [place] -41 QRS Count 12 Q Onset 205 [...] 0 Mobility: Patient is wheelchair bound at [facility] Geriatric medicine will continue to follow the patient. Thank you for allowing geriatric medicine to be involved in the care of your patient. Geriatric medicine consultation team is available during work hours Sunday through Sunday. For any emergency issues requiring immediate assistance over the weekend, please page Geriatrics pager [phone] MACARENA Richardson * Elias Pappas - 11/20/2023 [...] Value Ventricular Rate 73 Atrial Rate 73 UT Interval 196 QRS Duration 106 QT Interval 384 QTC Calculation(Bazett) 423 P [place] -24 R [place] -46 T [place] -41 QRS Count 12 Q Onset 205 [...] as stated. This study was interpreted at [place], [place]. MACRO: None Signed by: Pastor Barrientos 11/17/2023 6:46 AM Dictation workstation: [id number] CT guided percutaneous biopsy bone deep Result Date: 11/14/[address]-guided biopsy of the T7 vertebra. Specimens were sent to pathology/laboratory per requesting team. I was present for the entirety of the procedure as detailed above. I personally reviewed the images/study and I agree with the findings as stated by Justin Gatica MD. This study was interpreted at [place], [place]. MACRO: None Signed by: Caron Donaldson 11/14/2023 8:11 AM Dictation workstation: [id number] XR chest 1 view Result Date: 11/14/2023 1. No acute abnormality of the chest. 2. Mild retrocardiac and left basilar atelectasis. I personally reviewed the image(s)/study and resident interpretation as stated by Dr. Tiffanie Healy MD. I agree with the findings as stated. This study was interpreted at [place], [place]. MACRO: None Signed by: Bunny Asher 11/14/2023 7:48 AM Dictation workstation: [id number] MR lumbar spine w and wo IV [...] as stated. This study was interpreted at [facility], [place], [place]. MACRO: None Signed by: Lynda Bal 11/06/2023 1:29 PM Dictation workstation: [id number] MR thoracic spine w and wo IV [...] Lynda Bal 11/06/2023 1:24 PM Dictation workstation: [id number] MR cervical spine w and wo IV contrast Result Date: 11/06/2023 The examination is moderately degraded by patient motion artifact. Within this limitation, no evidence of focal osseous metastatic disease. No definite abnormal signal or enhancement within the cervical cord. Multilevel degenerative changes as detailed above. MACRO: None Signed by: Lynda Bal 11/06/2023 1:10 PM Dictation workstation: [id number] CT chest abdomen pelvis wo IV contrast [...] 8 of admission as a transfer from [facility] to [facility] for evaluation of back pain likely [...] effexor to 112.5, music therapy, director of software development services -Working on dispo -Drains removed by [...] is some anxiety related to son's (primary air export logistics manager) health condition and when she can return [...] Information Primary Emergency Contact: BEVERLY SHAH Address: [address] [place] [phone] [facility] Mobile Relation: Son Preferred language: Chilean Fire Extinguisher Technician needed? No Secondary Emergency Contact: Rissa SHAH Address: [address] [place] [phone] [facility] Mobile Relation: Son Preferred language: [place]an Fire Extinguisher Technician needed? No Eliasroman Pappas, MS4 11/20/2023 Associated attestation - Sai Marei MD - 11/20/2023 2:19 PM EDT I [...] Payer: Devoted Health Status: Inpatient Discharge disposition: [facility] Potential Barriers: none ADOD: 11/19 Secure chat sent to direct submit team to initiate precert. Per [facility] we have to complete pre-cert on our end as we our devoted contract is through [facility]. Please send therapy notes so we are able to start. Precert team confirmed precert has already been started and they will send over [facility], facility updated. [place]/discharge orders requested from the team for 7000 form. medicare coordinator will continue to follow for discharge planning needs. Kay Putnam RN Transitional Cold Roller/TCC [id number] * Alonzo Antony OT - 11/19/2023 2:31 [...] at the side of the bed. Outcome Measures:[facility] Daily Activity Putting on and taking off [...] 1: cues for log roll Outcome Measures: [facility] Basic Mobility Turning from your back to [...] Value Ventricular Rate 73 Atrial Rate 73 UT Interval 196 QRS Duration 106 QT Interval 384 QTC Calculation(Bazett) 423 P [place] -24 R [place] -46 T [place] -41 QRS Count 12 Q Onset 205 [...] as stated. This study was interpreted at [facility], [place], [place]. MACRO: None Signed by: Pastor Barrientos 11/17/2023 6:46 AM Dictation workstation: [id number] CT guided percutaneous biopsy bone deep Result Date: 11/14/[address]-guided biopsy of the T7 vertebra. Specimens were sent to pathology/laboratory per requesting team. I was present for the entirety of the procedure as detailed above. I personally reviewed the images/study and I agree with the findings as stated by Justin Gatica MD. This study was interpreted at [place], [place]. MACRO: None Signed by: Caron Donaldson 11/14/2023 8:11 AM Dictation workstation: [id number] XR chest 1 view Result Date: 11/14/2023 1. No acute abnormality of the chest. 2. Mild retrocardiac and left basilar atelectasis. I personally reviewed the image(s)/study and resident interpretation as stated by Dr. Tiffanie Healy MD. I agree with the findings as stated. This study was interpreted at [place], [place]. MACRO: None Signed by: Bunny Asher 11/14/2023 7:48 AM Dictation workstation: [id number] MR lumbar spine w and wo IV [...] as stated. This study was interpreted at [place], [place]. MACRO: None Signed by: Lynda Bal 11/06/2023 1:29 PM Dictation workstation: [id number] MR thoracic spine w and wo IV [...] Lynda Bal 11/06/2023 1:24 PM Dictation workstation: [id number] MR cervical spine w and wo IV contrast Result Date: 11/06/2023 The examination is moderately degraded by patient motion artifact. Within this limitation, no evidence of focal osseous metastatic disease. No definite abnormal signal or enhancement within the cervical cord. Multilevel degenerative changes as detailed above. MACRO: None Signed by: Lynda Bal 11/06/2023 1:10 PM Dictation workstation: [id number] CT chest abdomen pelvis wo IV contrast [...] 8 of admission as a transfer from [facility] to [facility] for evaluation of back pain likely [...] is some anxiety related to son's (primary air export logistics manager) health condition and when she can return [...] Information Primary Emergency Contact: BEVERLY SHAH Address: [address] [place] [phone] [facility] Mobile Relation: Son Preferred language: Chilean Fire Extinguisher Technician needed? No Secondary Emergency Contact: Rissa SHAH Address: [address] [place], [place] [address] [address] [place] Mobile Relation: Son Preferred language: [place]an Fire Extinguisher Technician needed? No MARNIE Umanzor 11/19/2023 Associated attestation [...] personal situation. Awaiting placement. * Hayley Meléndez, DIRECTOR HOME HEALTH - 11/18/2023 7:56 PM EDT Recreation Therapy [...] RN - 11/18/2023 3:31 PM EDT Transitional Cold Roller Progress Note: Pt is medically ready for discharge to SNF. Reviewed SNF referral results with pt. FOC is [facility]. SNF was notified they are FOC. Requested updated therapy notes for tomorrow. SNF will initiate precert once updated therapy notes are received. medicare coordinator will continue to follow for discharge planning needs. Opal LUNA, RN- Transitional Cold Roller (TCC) [phone] * Terry Lyons MD - 11/18/2023 9:05 [...] Value Ventricular Rate 73 Atrial Rate 73 UT Interval 196 QRS Duration 106 QT Interval 384 QTC Calculation(Bazett) 423 P [place] -24 R [place] -46 T [place] -41 QRS Count 12 Q Onset 205 P Onset 107 P Offset 148 T Offset 397 QTC Fredericia 410 Narrative Atrial fibrillation Left axis deviation Low voltage QRS Cannot rule out Anterior infarct , age undetermined Abnormal ECG Confirmed by Faboi Bee ([id number]) on 11/15/2023 2:34:28 PM Imaging [...] as stated. This study was interpreted at [place], [place]. MACRO: None Signed by: Pastor Barrientos 11/17/2023 6:46 AM Dictation workstation: [id number] CT guided percutaneous biopsy bone deep Result Date: 11/14/[address]-guided biopsy of the T7 vertebra. Specimens were sent to pathology/laboratory per requesting team. I was present for the entirety of the procedure as detailed above. I personally reviewed the images/study and I agree with the findings as stated by Justin Gatica MD. This study was interpreted at [place], [place]. MACRO: None Signed by: Caron Donaldson 11/14/2023 8:11 AM Dictation workstation: [id number] XR chest 1 view Result Date: 11/14/2023 1. No acute abnormality of the chest. 2. Mild retrocardiac and left basilar atelectasis. I personally reviewed the image(s)/study and resident interpretation as stated by Dr. Tiffanie Healy MD. I agree with the findings as stated. This study was interpreted at [place], [place]. MACRO: None Signed by: Bunny Asher 11/14/2023 7:48 AM Dictation workstation: [id number] MR lumbar spine w and wo IV [...] as stated. This study was interpreted at [facility], [place], [place]. MACRO: None Signed by: Lynda Bal 11/06/2023 1:29 PM Dictation workstation: [id number] MR thoracic spine w and wo IV [...] Lynda Bal 11/06/2023 1:24 PM Dictation workstation: [id number] MR cervical spine w and wo IV contrast Result Date: 11/06/2023 The examination is moderately degraded by patient motion artifact. Within this limitation, no evidence of focal osseous metastatic disease. No definite abnormal signal or enhancement within the cervical cord. Multilevel degenerative changes as detailed above. MACRO: None Signed by: Lynda Bal 11/06/2023 1:10 PM Dictation workstation: [id number] CT chest abdomen pelvis wo IV contrast [...] 8 of admission as a transfer from [facility] to [facility] for evaluation of back pain likely [...] Primary Emergency Contact: BEVERLY SHAH Address: [address] [phone] [facility] Mobile Relation: Son Preferred language: Chilean Fire Extinguisher Technician needed? No Secondary Emergency Contact: Rissa SHAH Address: [address] [place] [phone] [facility] Mobile Relation: Son Preferred language: [place]an Fire Extinguisher Technician needed? No Thomas Hoffman MD, MSc Internal [...] (Rehab/SNF/etc) Type of Post Acute Facility Services half-way Expected Discharge Disposition SNF Does the patient [...] were you homeless or living in a alf (including now)? N Transportation Needs In the [...] Met with pt and introduced myself as sub acute care nurse and member of the Care Transitions team [...] and other house hold items delivered from [employer]. Pt denies any falls. Pt stated she feels safe at home. Pt's address, phone number, and contact information was verified. Pt denies any social or financial concerns at this time. Home care: Yes Agency: [facility] [phone] Disciplines: Nurse came 1x to check vitals. DME: cane, walker, hospital bed. 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 PCP: Huan Mcdaniel MD Last appt: Pt does a lot of virtual visits Transport to appts: Son Eva provides (they have a wheelchair accessible van). Pharm: [facility] mail order (denies issues affording/obtaining medications) Discharge Planning: Pt s/p OR for laminectomy with Neurosurgery team, awaiting final IV abx recs however, team anticipate pt will discharge on 6 week course of IV abx with tentative stop date of 12/25. Pt stated she recently discharged AMA from [facility] (she was there x20 days) because [...] to the following SNF's: [facility] Referrals sent to above facilities via Careport to see if they can accept. Precert will be requiredprior to discharge. medicare coordinator will continue to follow for discharge planning needs. Kay Putnam RN Transitional Cold Roller/TCC [id number] * Ru Ortega MD - 11/16/2023 1:19 [...] undetermined Abnormal ECG Confirmed by Fabio Bee ([id number]) on 11/15/2023 2:34:28 PM No results found for this or any previous visit from the past 1095 days. Encounter Date: 11/09/23 ECG 12 Lead Result Value Ventricular Rate 73 Atrial Rate 73 UT Interval 196 QRS Duration 106 QT Interval 384 QTC Calculation(Bazett) 423 P [place] -24 R [place] -46 T [place] -41 QRS Count 12 Q Onset 205 P Onset 107 P Offset 148 T Offset 397 QTC Fredericia 410 Narrative Atrial fibrillation Left axis deviation Low voltage QRS Cannot rule out Anterior infarct , age undetermined Abnormal ECG Confirmed by Fabio Bee ([id number]) on 11/15/2023 2:34:28 PM Assessment and Plan [...] Of note the above was done with [employer] system. Note was proofread to minimize errors. [...] trough, CRP weekly and fax results to [phone] ATTN: Dr. Osorio - Will arrange outpt ID follow up Will follow peripherally for final OR cultures, please reach out w/ questions and when pt is ready for discharge Megan Osorio DO Epic Chat or pager [phone] * Hayley Meléndez, DIRECTOR HOME HEALTH - 11/15/2023 3:01 PM EDT Recreation Therapy [...] Value Ventricular Rate 73 Atrial Rate 73 UT Interval 196 QRS Duration 106 QT Interval 384 QTC Calculation(Bazett) 423 P [place] -24 R [place] -46 T [place] -41 QRS Count 12 Q Onset 205 [...] Of note the above was done with [employer] dictation system. Note was proofread to minimize [...] Shower/Tub: (sponge bathes) Prior Function: Level of [place]: Independent with ADLs and functional transfers, Needs assistance with homemaking (Sponge bath at baseline. Uses a bedpan at baseline does not transfer to the toilet.) Receives Help From: Family ADL Assistance: Independent (sponge bathes) Homemaking Assistance: (son completes) Ambulatory Assistance: (pt reports non-ambulatory and has not stood in a long time. pt reports she slides to [place] (not with board)) IADL History: ADL: Eating [...] Moderate assistance, +2 Bed Mobility Comments 1: Mvta-vt-hswp instructions provided for log rolling technique, with [...] LUE LUE: Within Functional Limits Outcome Measures: [facility] Daily Activity Putting on and taking off [...] sat EOB for 15 min Outcome Measures: [facility] Basic Mobility Turning from your back to [...] to attempt to meet with pt another time.medicare coordinator will continue to follow for discharge planning needs. Kay Putnam RN Transitional Cold Roller/TCC [id number] * Elias Pappas - 11/14/2023 10:27 AM [...] and CT thoracic spine 11/06/2023. ACCESSION NUMBER(S): [id number] ORDERING CLINICIAN: RU ORTEGA TECHNIQUE: INTERVENTIONALIST(S): MD [...] the interventional CT scanner bed. 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 This study was interpreted at [place], [place]. MACRO: None Signed by: Caron Donaldson 11/14/2023 8:11 AM Dictation workstation: [id number] XR chest 1 view Narrative: Interpreted By: Bunny Asher and [place] Lesley STUDY: XR CHEST 1 VIEW; 11/13/2023 11:11 pm INDICATION: Signs/Symptoms:preop. COMPARISON: CT chest abdomen pelvis 11/06/2023 ACCESSION NUMBER(S): [id number] ORDERING CLINICIAN: RU ORTEGA FINDINGS: AP upright [...] as stated. This study was interpreted at [place], [place]. MACRO: None Signed by: Bunny Asher 11/14/2023 7:48 AM Dictation workstation: [id number] Physical Exam BP 121/67 Pulse 60 Temp [...] 2 of admission as a transfer from [facility] to [facility] for evaluation of back pain likely [...] and clinical correlation Confirmed by Sophie Florian ([id number]) on 11/06/2023 8:58:45 PM MR lumbar spine w and wo IV contrast Narrative: Interpreted By: Lynda Bal, STUDY: MRI of the lumbar spine without IV contrast; 11/06/2023 12:58 pm INDICATION: Signs/Symptoms:Abnormal thoracic CT scan, cancer staging. COMPARISON: None. ACCESSION NUMBER(S): [id number] ORDERING CLINICIAN: VERA HUANG TECHNIQUE: Sagittal and [...] stenosis, narrowing of the subarticular recess and cwuh-zy-jgcvzhyf bilateral neural foraminal stenosis. L3-L4: Disc bulge, [...] as stated. This study was interpreted at [place], [place]. MACRO: None Signed by: Lynda Bal 11/06/2023 1:29 PM Dictation workstation: [id number] MR thoracic spine w and wo IV contrast Narrative: Interpreted By: Lynda Bal, STUDY: MR THORACIC SPINE W AND WO IV CONTRAST; 11/06/2023 12:58 pm INDICATION: Signs/Symptoms:Abnormal thoracic CT scan, cancer staging. COMPARISON: None. ACCESSION NUMBER(S): [id number] ORDERING CLINICIAN: VERA HUANG TECHNIQUE: Sagittal T1, T2, STIR and axial T2 and T1 weighted MR images of the thoracic spine were obtained. FINDINGS: Counting was performed from the C2 vertebral body on the fish hatchery inspector image. Alignment: There is slightly exaggerated thoracic [...] spine with mild degenerative endplate changes and heen-ic-vwfqumml disc height loss. There is prevertebral infiltration [...] with moderate to severe spinal canal and vbai-na-ftbikioq bilateral neural foraminal stenosis. T9-T10, T10-T11: Degenerative [...] Lynda Bal 11/06/2023 1:24 PM Dictation workstation: [id number] MR cervical spine w and wo IV contrast Narrative: Interpreted By: Lynda Bal, STUDY: MR CERVICAL SPINE W AND WO IV CONTRAST; 11/06/2023 12:58 pm INDICATION: Signs/Symptoms:Abnormal CT thoracic spine, Cancer staging. COMPARISON: None. ACCESSION NUMBER(S): [id number] ORDERING CLINICIAN: VERA HUANG TECHNIQUE: Sagittal T1, [...] throughout the cervical spine. Varying degrees of lctf-uy-bemzrvxl disc height loss. Cord: Within the limitation [...] Lynda Bal 11/06/2023 1:10 PM Dictation workstation: [id number] CT chest abdomen pelvis wo IV contrast Narrative: STUDY: CT Chest, Abdomen, and Pelvis without IV Contrast; 11/06/2023, 804 INDICATION: Abnormal thoracic spine CT. COMPARISON: CT thoracic 11/06/2023, XR chest 10/09/2023, CT abd 01/05/2020. ACCESSION NUMBER(S): [id number] ORDERING CLINICIAN: VERA HUANG TECHNIQUE: CT of [...] back pain. COMPARISON: None available. ACCESSION NUMBER(S): [id number] ORDERING CLINICIAN: SKINNY [employer]EL TECHNIQUE: CT of [...] 2 of admission as a transfer from [facility] to [facility] for evaluation of back pain likely [...] risk) - 3.9% 30-day risk of , [place], or cardiac arrest Per patient and chart [...] Of note the above was done with [employer] system. Note was proofread to minimize errors. [...] Comments: Hospital bed Prior Function: Level of Keyes: Independent with ADLs and functional transfers (Sponge [...] Within Functional Limits, , and Outcome Measures: [facility] Daily Activity Putting on and taking off [...] 2:54 PM Alonzo Antony OTR/OTD Rehab Office: [phone] * Sophie Trevino PT - 11/12/2023 2:21 [...] (3/5) LLE LLE : (3/5) Outcome Measures: [facility] Basic Mobility Turning from your back to [...] Plan per Medical/Surgical team: Pt transferred from [facility] with multiple large lung nodules c/f mets, plan for IR for biopsy today and consult with ID regarding penitentiary IV abx plan. Neuro-surgery team, PT/OT consulted. Payer: Devoted Health Status: Inpatient Discharge disposition: PT/OT evals are pending, anticipate pt will need inpatient rehab based on current [facility] mobility score of 11. Potential Barriers: none ADOD: 11/14 Attempted to meet with pt this afternoon but she was resting in bed with her eyes closed, decision made not to aware pt/ assessment deferred to another date and time. medicare coordinator will continue to follow for discharge planning needs. Kay Putnam RN Transitional Cold Roller/TCC [id number] * Ru Ortega MD - 11/12/2023 12:32 [...] and clinical correlation Confirmed by Sophie Florian ([id number]) on 11/06/2023 8:58:45 PM MR lumbar spine w and wo IV contrast Narrative: Interpreted By: Lynda Bal, STUDY: MRI of the lumbar spine without IV contrast; 11/06/2023 12:58 pm INDICATION: Signs/Symptoms:Abnormal thoracic CT scan, cancer staging. COMPARISON: None. ACCESSION NUMBER(S): [id number] ORDERING CLINICIAN: VERA HUANG TECHNIQUE: Sagittal and [...] stenosis, narrowing of the subarticular recess and xgaz-qa-pczckdoy bilateral neural foraminal stenosis. L3-L4: Disc bulge, [...] as stated. This study was interpreted at [place], [place]. MACRO: None Signed by: Lynda Bal 11/06/2023 1:29 PM Dictation workstation: [id number] MR thoracic spine w and wo IV contrast Narrative: Interpreted By: Lynda Bal, STUDY: MR THORACIC SPINE W AND WO IV CONTRAST; 11/06/2023 12:58 pm INDICATION: Signs/Symptoms:Abnormal thoracic CT scan, cancer staging. COMPARISON: None. ACCESSION NUMBER(S): [id number] ORDERING CLINICIAN: VERA HUANG TECHNIQUE: Sagittal T1, T2, STIR and axial T2 and T1 weighted MR images of the thoracic spine were obtained. FINDINGS: Counting was performed from the C2 vertebral body on the fish hatchery inspector image. Alignment: There is slightly exaggerated thoracic [...] spine with mild degenerative endplate changes and vqcd-qs-oqzgpzpn disc height loss. There is prevertebral infiltration [...] with moderate to severe spinal canal and stzz-zh-omfjracq bilateral neural foraminal stenosis. T9-T10, T10-T11: Degenerative [...] Lynda Bal 11/06/2023 1:24 PM Dictation workstation: [id number] MR cervical spine w and wo IV contrast Narrative: Interpreted By: Lynda Bal, STUDY: MR CERVICAL SPINE W AND WO IV CONTRAST; 11/06/2023 12:58 pm INDICATION: Signs/Symptoms:Abnormal CT thoracic spine, Cancer staging. COMPARISON: None. ACCESSION NUMBER(S): [id number] ORDERING CLINICIAN: VERA HUANG TECHNIQUE: Sagittal T1, [...] throughout the cervical spine. Varying degrees of ipmu-ky-iyfrwdzm disc height loss. Cord: Within the limitation [...] Lynda Bal 11/06/2023 1:10 PM Dictation workstation: [id number] CT chest abdomen pelvis wo IV contrast Narrative: STUDY: CT Chest, Abdomen, and Pelvis without IV Contrast; 11/06/2023, 0805 INDICATION: Abnormal thoracic spine CT. COMPARISON: CT thoracic 11/06/2023, XR chest 10/09/2023, CT abd 01/05/2020. ACCESSION NUMBER(S): [id number] ORDERING CLINICIAN: VERA HUANG TECHNIQUE: CT of [...] hydronephrosis. 3. Calcified uterine fibroids. Signed by Myhcal Chavez MD CT thoracic spine wo IV contrast Narrative: STUDY: CT Thoracic Spine without IV Contrast; 11/06/2023 at 5:45 AM. INDICATION: Thoracic back pain. COMPARISON: None available. ACCESSION NUMBER(S): [id number] ORDERING CLINICIAN: SKINNY STEEL TECHNIQUE: CT of [...] QT Interval 354 QTC Calculation(Bazett) 447 R [place] -50 T [place] 125 QRS Count 16 Q Onset 203 [...] and clinical correlation Confirmed by Sophie Florian ([id number]) on 11/06/2023 8:58:45 PM Assessment and Plan Back pain: Appears consistent with vertebral osteomyelitis/discitis. Overall lower suspicion related to small pulmonary nodules. -Consulting IR for vertebral biopsy. Will send for culture and pathology to rule out mets. May [id number] testing if cultures are negative. Patient be [...] Of note the above was done with [employer]ucks[employer] system. Note was proofread to minimize errors. [...] Lynda Bal 11/06/2023 1:10 PM Dictation workstation: [id number] CT chest abdomen pelvis wo IV contrast [...] Presenting for progressive back pain, transferred from [facility] 11/08 for letty rosurgical evaluation, ID consulted [...] Medicine PGY2 ID Consult Team A Pager [phone] [employer] Preferred Associated attestation - Megan Osorio [...] continuing abx for now. Megan Osorio DO [employer] Chat or pager [phone] * Carrington De Los Santos MD - [...] and clinical correlation Confirmed by Sophie Florian ([id number]) on 11/06/2023 8:58:45 PM MR lumbar spine w and wo IV contrast Narrative: Interpreted By: Lynda Bal, STUDY: MRI of the lumbar spine without IV contrast; 11/06/2023 12:58 pm INDICATION: Signs/Symptoms:Abnormal thoracic CT scan, cancer staging. COMPARISON: None. ACCESSION NUMBER(S): [id number] ORDERING CLINICIAN: VERA HUANG TECHNIQUE: Sagittal and [...] stenosis, narrowing of the subarticular recess and jffk-dd-vxctjrxa bilateral neural foraminal stenosis. L3-L4: Disc bulge, [...] as stated. This study was interpreted at [place], [place]. MACRO: None Signed by: Lynda Bal 11/06/2023 1:29 PM Dictation workstation: [id number] MR thoracic spine w and wo IV contrast Narrative: Interpreted By: Lynda Bal, STUDY: MR THORACIC SPINE W AND WO IV CONTRAST; 11/06/2023 12:58 pm INDICATION: Signs/Symptoms:Abnormal thoracic CT scan, cancer staging. COMPARISON: None. ACCESSION NUMBER(S): [id number] ORDERING CLINICIAN: VERA HUANG TECHNIQUE: Sagittal T1, T2, STIR and axial T2 and T1 weighted MR images of the thoracic spine were obtained. FINDINGS: Counting was performed from the C2 vertebral body on the fish hatchery inspector image. Alignment: There is slightly exaggerated thoracic [...] spine with mild degenerative endplate changes and gwfe-cv-xjwsyqyz disc height loss. There is prevertebral infiltration [...] with moderate to severe spinal canal and mlct-so-ezxypxmk bilateral neural foraminal stenosis. T9-T10, T10-T11: Degenerative [...] Lynda Bal 11/06/2023 1:24 PM Dictation workstation: [id number] MR cervical spine w and wo IV contrast Narrative: Interpreted By: Lynda Bal, STUDY: MR CERVICAL SPINE W AND WO IV CONTRAST; 11/06/2023 12:58 pm INDICATION: Signs/Symptoms:Abnormal CT thoracic spine, Cancer staging. COMPARISON: None. ACCESSION NUMBER(S): [id number] ORDERING CLINICIAN: VERA HUANG TECHNIQUE: Sagittal T1, [...] throughout the cervical spine. Varying degrees of ycwo-um-tfagpkeh disc height loss. Cord: Within the limitation [...] Lynda Bal 11/06/2023 1:10 PM Dictation workstation: [id number] CT chest abdomen pelvis wo IV contrast Narrative: STUDY: CT Chest, Abdomen, and Pelvis without IV Contrast; 11/06/2023, 08 INDICATION: Abnormal thoracic spine CT. COMPARISON: CT thoracic 11/06/2023, XR chest 10/09/2023, CT abd 01/05/2020. ACCESSION NUMBER(S): [id number] ORDERING CLINICIAN: VERA HUANG TECHNIQUE: CT of [...] back pain. COMPARISON: None available. ACCESSION NUMBER(S): [id number] ORDERING CLINICIAN: SKINNY STEEL TECHNIQUE: CT of [...] QT Interval 354 QTC Calculation(Bazett) 447 R [place] -50 T [place] 125 QRS Count 16 Q Onset 203 [...] and clinical correlation Confirmed by Sophie Florian ([id number]) on 11/06/2023 8:58:45 PM Assessment and Plan Back pain: Appears consistent with vertebral osteomyelitis/discitis. Overall lower suspicion related to small pulmonary nodules. -Consulting IR for vertebral biopsy. Will send for culture and pathology to rule out mets. May [id number] testing if cultures are negative. Patient be [...] Of note the above was done with [employer] system. Note was proofread to minimize errors. [...] and clinical correlation Confirmed by Sophie Florian ([id number]) on 11/06/2023 8:58:45 PM MR lumbar spine w and wo IV contrast Narrative: Interpreted By: Lynda Bal, STUDY: MRI of the lumbar spine without IV contrast; 11/06/2023 12:58 pm INDICATION: Signs/Symptoms:Abnormal thoracic CT scan, cancer staging. COMPARISON: None. ACCESSION NUMBER(S): [id number] ORDERING CLINICIAN: VERA HUANG TECHNIQUE: Sagittal and [...] stenosis, narrowing of the subarticular recess and xtbg-hd-zizktenm bilateral neural foraminal stenosis. L3-L4: Disc bulge, [...] as stated. This study was interpreted at [place], [place]. MACRO: None Signed by: Lynda Bal 11/06/2023 1:29 PM Dictation workstation: [id number] MR thoracic spine w and wo IV contrast Narrative: Interpreted By: Lynda aBl, STUDY: MR THORACIC SPINE W AND WO IV CONTRAST; 11/06/2023 12:58 pm INDICATION: Signs/Symptoms:Abnormal thoracic CT scan, cancer staging. COMPARISON: None. ACCESSION NUMBER(S): [id number] ORDERING CLINICIAN: VERA HUANG TECHNIQUE: Sagittal T1, T2, STIR and axial T2 and T1 weighted MR images of the thoracic spine were obtained. FINDINGS: Counting was performed from the C2 vertebral body on the fish hatchery inspector image. Alignment: There is slightly exaggerated thoracic [...] spine with mild degenerative endplate changes and swyr-cf-vsbwujee disc height loss. There is prevertebral infiltration [...] with moderate to severe spinal canal and fqet-gj-gmjqcmpv bilateral neural foraminal stenosis. T9-T10, T10-T11: Degenerative [...] Lynda Bal 11/06/2023 1:24 PM Dictation workstation: [id number] MR cervical spine w and wo IV contrast Narrative: Interpreted By: Lynda Bal, STUDY: MR CERVICAL SPINE W AND WO IV CONTRAST; 11/06/2023 12:58 pm INDICATION: Signs/Symptoms:Abnormal CT thoracic spine, Cancer staging. COMPARISON: None. ACCESSION NUMBER(S): [id number] ORDERING CLINICIAN: VERA HUANG TECHNIQUE: Sagittal T1, [...] throughout the cervical spine. Varying degrees of smsf-kk-dkehksyj disc height loss. Cord: Within the limitation [...] Lynda Bal 11/06/2023 1:10 PM Dictation workstation: [id number] CT chest abdomen pelvis wo IV contrast Narrative: STUDY: CT Chest, Abdomen, and Pelvis without IV Contrast; 11/06/2023, 804 INDICATION: Abnormal thoracic spine CT. COMPARISON: CT thoracic 11/06/2023, XR chest 10/09/2023, CT abd 01/05/2020. ACCESSION NUMBER(S): [id number] ORDERING CLINICIAN: VERA HUANG TECHNIQUE: CT of [...] back pain. COMPARISON: None available. ACCESSION NUMBER(S): [id number] ORDERING CLINICIAN: SKINNY STEEL TECHNIQUE: CT of [...] QT Interval 354 QTC Calculation(Bazett) 447 R [place] -50 T [place] 125 QRS Count 16 Q Onset 203 [...] and clinical correlation Confirmed by Sophie Florian ([id number]) on 11/06/2023 8:58:45 PM Assessment and Plan Back pain: Appears consistent with vertebral osteomyelitis/discitis. Overall lower suspicion related to small pulmonary nodules. -Consulting IR for vertebral biopsy. Will send for culture and pathology to rule out mets. May [id number] testing if cultures are negative -Continue vancomycin [...] Of note the above was done with [employer] system. Note was proofread to minimize errors. [...] QT Interval 354 QTC Calculation(Bazett) 447 R [place] -50 T [place] 125 QRS Count 16 Q Onset 203 [...] and clinical correlation Confirmed by Sophie Florian ([id number]) on 11/06/2023 8:58:45 PM Imaging MR lumbar [...] as stated. This study was interpreted at [place], [place]. MACRO: None Signed by: Lynda Bal 11/06/2023 1:29 PM Dictation workstation: [id number] MR thoracic spine w and wo IV [...] Lynda Bal 11/06/2023 1:24 PM Dictation workstation: [id number] MR cervical spine w and wo IV contrast Result Date: 11/06/2023 The examination is moderately degraded by patient motion artifact. Within this limitation, no evidence of focal osseous metastatic disease. No definite abnormal signal or enhancement within the cervical cord. Multilevel degenerative changes as detailed above. MACRO: None Signed by: Lynda Bal 11/06/2023 1:10 PM Dictation workstation: [id number] CT chest abdomen pelvis wo IV contrast [...] 1 of admission as a transfer from [facility] to [facility] for work up of newly found [...] Primary Emergency Contact: BEVERLY SHAH [address] [place] [phone] [facility] Mobile Relation: Son Preferred language: Chilean Fire Extinguisher Technician needed? No Secondary Emergency Contact: Rissa SHAH Address: [address] [place], [place] [address] [address] [facility] Mobile Relation: Son Preferred language: Chilean Fire Extinguisher Technician needed? No Thomas Hoffman MD, MSc Internal [...] Sebastian Crow PharmD Transitions of Care Pharmacist [facility] Please reach out via Secure Chat for questions * Tracy Thompson, [facility] - 11/09/2023 10:52 AM EDT Pharmacy Medication History Review Daryn Shah is a 77 y.o. female admitted for Discitis, unspecified, thoracic region. Pharmacy reviewed the patient's zwcgd-hw-xxdqygwoe medications and allergies for accuracy. The list below reflects the updated TRAVEL REGISTERED NURSE PACU list. Comments regarding how patient may be [...] Pharmacy has been updated to [facility]. Sources used to confirm home medication list include: Patient interview, OARRS, Care Everywhere, medication fill history, Discharge Summary 10/15/23. Medications added: None Medications modified: None Medications to be removed: Baclofen Below are additional concerns with the patient's TRAVEL REGISTERED NURSE PACU list. None to note Tracy Thompson [facility] Transitions of Care Pharmacist [facility] Please reach out via Secure Chat for questions, or if no response call [employer] or [employer] documented in this [facility] Work Phone: 1(454) 592-149508-13-2024 Miscellaneous Notes* Care Plan - [place] [...] Labs, ECG/Telemetry: Yes Risks/Benefits/Alternatives Discussed with Patient/POA/Legal Architect Naval: Yes Stop Sign on Door: Yes Time [...] Atrial Junction Line Confirmation: ECG Lot #: [id number] Boiler Plant Operator: Bard PICC Line Exp Date: 02/06/2025 Securement: [...] Note Date: 11/09/2023 - 11/14/2023 OR Location: [facility] OR Name: Daryn Shah, : 1945, Age: 77 y.o., , Sex: female Diagnosis Pre-op Diagnosis * Discitis, unspecified, thoracic region [M46.44] Post-op Diagnosis * Discitis, unspecified, thoracic region [M46.44] Procedures T5-T9 laminectomy for decompression and evacuation of epidural phlegmon Surgeons * Braulio Oneil - Primary Resident/Fellow/Other Managing Partner [employer] [place]: Surgeons and Role: * Giovanna Coles MD - Resident - Assisting * Dyan Waldron MD - Resident - Assisting Procedure Summary Anesthesia: Anesthesia type not filed in the log. ASA: III Anesthesia Staff: Anesthesiologist: Cameron Matos MD; Carolina Bright MD C-AA: YUDITH Mo Manager Patient: Miles Vidal MD Estimated Blood Loss: 150 [...] TISSUE/WOUND CULTURE/SMEAR Braulio Oneil MD PhD 11/14/2023 9083 B : LEFT LATERAL EPIDURAL Swab SPINE TISSUE/WOUND CULTURE/SMEAR Braulio Oneil MD PhD 11/14/2023 1751 Staff: Middle [employer] Principal: [employer] Principal: Kya Scrub Person: Jessica Daiub Person: Stephanie [employer] Principal: Yu Salas Scrub: Sujatha Salas Scrub: [employer] Principal: Waqar Drains and/or Catheters: Closed/Suction Drain 1 [...] intubation. Patient was then flipped prone onto [facility] 4 post table and all pressure points [...] closure. First we left a 10 round Ukrainian drain and a subfascial layer. Muscle and [...] Radiology Brief Postprocedure Note Attending: Dr. Donaldson Managing Partner [employer] [place]: Dr. Gatica Diagnosis: T6-T9 discitis/osteomyelitis Description of [...] ambulate who presented as a transfer from [facility] to [facility] on 11/09/23 for 4 weeks of back pain from suspected osteomyelitis/discitis and newly found multiple large lung nodules c/f metastatic disease. Patient was BIBA to [facility] and was admitted on 11/06/23 for intractable back pain. MRI showed concerns for osteomyelitis/discitis mid-lower thoracic spine (detailed above). She was started on vancomycin and Zosyn. Was transferred to [facility] on 11/09/23 and was continued on [...] pain controlle dduring shift. [facility] Work Phone: 1([phone]) 139-111508-12-2024 Consult note* Carmen Rodriguez MD - 11/19/2023 3:00 PM EDTAssociated Order(s): Inpatient consult to Geriatric Medicine Inpatient consult to Geriatric Medicine Consult performed by: Carmen Rodriguez MD Consult ordered by: Sai Marie MD Primary Team: General Medicine Admit Date: 11/09/2023 Emergency Contact: Extended Emergency Contact Information Primary Emergency Contact: BEVERLY SHAH Address: [address] [place] [phone] [facility] Mobile Relation: Son Preferred language: Chilean Fire Extinguisher Technician needed? No Secondary Emergency Contact: Rissa SHAH Address: [address] [place] [phone] [facility] [employer] Relation: Son Preferred language: Chilean Fire Extinguisher Technician needed? No Reason For Consult: Concern for [...] son who is currently admitted in [facility]. Patient stated she was previously on Paxil [...] tablet 10 mg 10 mg oral Nightly Cross Anchor Azghadi, MD 10 mg at 11/18/23 2100 [...] (EMR) is reviewed, notable information includes: 10/09-10/15/23: [facility] admitted for Acute Proteus Mirabilis UTI. 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 COMPARISON: 11/13/2023 chest radiograph ACCESSION NUMBER(S): [id number] ORDERING CLINICIAN: RU ORTEGA FINDINGS: AP radiograph [...] as stated. [facility] [place] MACRO: None Signed by: Pastor Scalesani 11/17/2023 6:46 AM Dictation workstation: [id number] Head/Brain Imaging No results found for this or any previous visit. No results found for this or any previous visit. DATA: EKG: QTC Encounter Date: 11/09/23 ECG 12 Lead Result Value Ventricular Rate 73 Atrial Rate 73 UT Interval 196 QRS Duration 106 QT Interval 384 QTC Calculation(Bazett) 423 P [place] -24 R [place] -46 T [place] -41 QRS Count 12 Q Onset 205 [...] likes music therapy and liked when her senior economist from [employer] came to visit before her surgery. Plan: Increase Effexor to 112.5mg daily Consult music therapy and director of software development services 2. Concern for cognitive impairment - [...] Goals of Care: -Health care power of financial advisor trainee:No -Living will:No Code status:DNR/DNI 4M AGE-FRIENDLY INITIATIVE: [...] over the weekend, please page Geriatrics pager [phone] Consult Billing Time Prep time on date [...] and Cellulitis presents as a transfer from [facility] to [facility] for work up of newly found multiple large lung nodules c/f metastatic disease. Pertinent Labs: Albumin Date Value Ref Range Status 11/12/2023 2.8 (L) 3.4 - 5.0 g/dL Final Wound Assessment: Wound 11/06/23 Traumatic Leg Right;Lower (Active) Wound Image 11/12/23 1604 Site Assessment [place] 11/12/23 1604 Regine-Wound Assessment Hypopigmented 11/12/23 1604 [...] is a 77 y.o. female transferred from [facility] for neurosurgical evaluation for back pain [...] ago, at which time she presented to [facility]. Imaging atthat time was most consistent [...] was not relieved by acetaminophen. Imaging at [facility] was concerning for osteomyelitis with perivertebral abscesses as well as multiple new large pulmonary nodules. Blood cultures drawn and started on vanc/zosyn, which was changed to vanc/cefepime on admission to [facility]. Objective Physical Exam Constitutional: General: She [...] is a 77 y.o. female transferred from [facility] for neurosurgical evaluation for back pain [...] MD PGY2 ID Consult Service A Pager [phone] Associated attestation - Megan Osorio DO - [...] is receptive to speaking w/ director of software development services and other support services offered while inpatient. Recommendations: -Cont IV vanc, dosed w/ pharmacy -Cont IV pip-tazo 3.375gm q6H -Will follow up blood cx and IR biopsy plans, when collected please send for pathology and gram stain w/ bacterial cx; if no growth will request 16s testing Will follow Megan Osorio DO Epic Chat or pager [phone] * Raul Burgos, PharmD - 11/09/2023 3:09 [...] loading dose. Patient is a transfer from [facility] and last dose taken was 1750mg [...] as stated. This study was interpreted at [place], [place]. MACRO: None Signed by: Lynda Bal 11/06/2023 1:29 PM Dictation workstation: [id number] Assessment/Plan Assessment: Daryn is a 77 y.o. [...] note signed by attending documented in this [facility] Work Phone: 1(956) 631-559708-12-2024 Hospital Discharge instructions* Discharge Instructions* Elias Pappas [...] controlled. We recommended you go to a fpc facility for a period of time to [...] Everywhere. * Peripherally-Inserted Central Catheter Discharge Instructions (Chilean) * Osteomyelitis in adults (Chilean) documented in this [facility] Work Phone: 1(383) 559-689008-06-2024 History and physical note* Jadyn Chan MD [...] as stated. This study was interpreted at [place], [place]. MACRO: None Signed by: Lynda Bal 11/06/2023 1:29 PM Dictation workstation: [id number] Assessment/Plan Assessment: Daryn is a 77 y.o. [...] and Cellulitis presents as a transfer from [facility] to [facility] for work up of newly found multiple large lung nodules c/f metastatic disease. At baseline patient is non-ambulatory and uses motorized scooter inside the house. She is bedbound most of the day and her primary caregiver is her son who is currently admitted at [facility]. Patient was in her usual state [...] present. Left lower leg: Edema present. Comments: [place] appearing BL lower extremities. Skin: General: Skin [...] and Cellulitis presents as a transfer from [facility] to [facility] for work up of newly found [...] (confirmed on admission) NOK: Eva Shah (son): [phone] Not yet staffed with the attending. Eulalia [...] started when her son was and the gzpyqwjg-hv-vpi and grandchild left the home le aving patient depressed. [facility] Work Phone: 1(764) 912-148407-08-2024 Nurse Note* Fátima Guadarrama RN - 10/15/2023 5:52 PM EDT Called Robbie Reyes and gave report. [facility] Nurse Note* Fátima Guadarrama RN - 10/15/2023 5:52 PM EDT Called Robbie Reyes and gave report. * Yennifer Gregg RN - 10/12/2023 6:34 PM EDT 10/11/23 am to 10/12/23 pm 963 ml intake only. Pt is declining meals. [facility] Work Phone: [phone]) [phone] Hospital Discharge instructions* Discharge Instructions* Sonya Hackett RN - 10/15/2023 5:05 PM EDT Hyponatremia The Basics Written by the doctors and editors at [facility] What is hyponatremia? -- Hyponatremia is the [...] take care of yourself. documented in this [facility] Work Phone: 1(913) 233-524107-08-2024 Plan of care note* Care Plan - [...] goals for the shift include pain control [facility] Work Phone: 1([phone]) 759-333207-08-2024 Miscellaneous Notes* Care Plan - Fátima Guadarrama [...] no focal motor deficits. documented [facility] Work Phone: 1([phone]) 585-383707-08-2024 Note* Significant Event - BILL Vizcaino - [...] and accurate reflection of the individual's condition. [facility] Work Phone: 1(413) 550-981507-08-2024 History of Present illness Narrative* BILL Vizcaino - 10/15/2023 3:41 PM EDT Pt reviewed during Care Rounds today and she continues to be ready for discharge. Update in [facility]Port from [facility] that auth was not started over the weekend. SW met with pt to review her plan and the IM. Pt confirms her desires to discharge to [facility] and understands we are waiting on auth which was not started until today. Precert request sent to [facility] and is pending. Updatesattached in [facility] for [facility] Hospital- they do not need a COVID. Care Transitions will continue to follow. ADDM: Update from [facility] that auth has been approved. Update in [facility] to [facility] and they can accept today. [facility] exemption was completed by [facility]/[employer]. Transportation arranged for 6pm. No further needs identified. BILL Vizcaino * Dorota Cavazos, MAYCO-HEAD SCORER - 10/14/2023 1:24 PM EDT Daryn Shah [...] scan of the abdomen 01/05/2020 ACCESSION NUMBER(S): [id number] ORDERING CLINICIAN: FLAVIO MILES TECHNIQUE: Axial noncontrast [...] Normal caliber. GALLBLADDER: Status post cholecystectomy. PANCREAS: Bwsh-sx-upiqgpcp fatty atrophy of the pancreas. SPLEEN: Splenomegaly [...] Vlad Araya 10/10/2023 3:17 AM Dictation workstation: [id number] XR chest 1 view Narrative: Interpreted By: Vlad Araya, STUDY: XR CHEST 1 VIEW; 10/10/2023 2:03 am INDICATION: Signs/Symptoms:weakness. COMPARISON: Chest x-ray 09/08/2022 ACCESSION NUMBER(S): [id number] ORDERING CLINICIAN: FLAVIO MILES FINDINGS: Multiple overlying leads are present. CARDIOMEDIASTINAL SILHOUETTE: Cardiomediastinal silhouette is stable in size and configuration. LUNGS: No consolidation, pleural effusion or pneumothorax. ABDOMEN: No remarkable upper abdominal findings. BONES: Multilevel degenerative changes of the spine. Bilateral shoulder osteoarthrosis. Impression: No acute cardiopulmonary process. MACRO: None Signed by: Vlad Araya 10/10/2023 2:11 AM Dictation workstation: [id number] Physical Exam General Appearance: AAO x 3, [...] but he is currently an inpatient at [facility] with cystic fibrosis and a second son will arrive home from [place] sometime later today. Patient states she is [...] scan of the abdomen 01/05/2020 ACCESSION NUMBER(S): [id number] ORDERING CLINICIAN: FLAVIO MILES TECHNIQUE: Axial noncontrast [...] Normal caliber. GALLBLADDER: Status post cholecystectomy. PANCREAS: Xnyv-gk-ilbzreez fatty atrophy of the pancreas. SPLEEN: Splenomegaly [...] Vlad Araya 10/10/2023 3:17 AM Dictation workstation: [id number] XR chest 1 view Narrative: Interpreted By: Vlad Araya, STUDY: XR CHEST 1 VIEW; 10/10/2023 2:03 am INDICATION: Signs/Symptoms:weakness. COMPARISON: Chest x-ray 09/08/2022 ACCESSION NUMBER(S): [id number] ORDERING CLINICIAN: FLAVIO MILES FINDINGS: Multiple overlying leads are present. CARDIOMEDIASTINAL SILHOUETTE: Cardiomediastinal silhouette is stable in size and configuration. LUNGS: No consolidation, pleural effusion or pneumothorax. ABDOMEN: No remarkable upper abdominal findings. BONES: Multilevel degenerative changes of the spine. Bilateral shoulder osteoarthrosis. Impression: No acute cardiopulmonary process. MACRO: None Signed by: Vlad Araya 10/10/2023 2:11 AM Dictation workstation: [id number] Physical Exam General Appearance: AAO x 3, [...] Pt of accepting facilities and Pt [facility] Pt [facility] not want to go to [facility] with a semi-private room. SW sent message to [facility] to indicate they are FOC. Discharge plan is [facility] pending precert. SW to follow. * [...] scan of the abdomen 01/05/2020 ACCESSION NUMBER(S): [id number] ORDERING CLINICIAN: FLAVIO MILES TECHNIQUE: Axial noncontrast [...] Normal caliber. GALLBLADDER: Status post cholecystectomy. PANCREAS: Yvwv-vc-jcgqdhwg fatty atrophy of the pancreas. SPLEEN: Splenomegaly [...] Vlad Araya 10/10/2023 3:17 AM Dictation workstation: [id number] XR chest 1 view Narrative: Interpreted By: Vlad Araya, STUDY: XR CHEST 1 VIEW; 10/10/2023 2:03 am INDICATION: Signs/Symptoms:weakness. COMPARISON: Chest x-ray 09/08/2022 ACCESSION NUMBER(S): [id number] ORDERING CLINICIAN: FLAVIO MILES FINDINGS: Multiple overlying leads are present. CARDIOMEDIASTINAL SILHOUETTE: Cardiomediastinal silhouette is stable in size and configuration. LUNGS: No consolidation, pleural effusion or pneumothorax. ABDOMEN: No remarkable upper abdominal findings. BONES: Multilevel degenerative changes of the spine. Bilateral shoulder osteoarthrosis. Impression: No acute cardiopulmonary process. MACRO: None Signed by: Vlad Araya 10/10/2023 2:11 AM Dictation workstation: [id number] Physical Exam General Appearance: AAO x 3, [...] pain End of Session Communication: Bedside nurse, Cold Roller End of Session Patient Position: Bed, 3 [...] setting. pt needs extra time Outcome Measures: [facility] Basic Mobility Turning from your back to [...] Static Sitting-Level of Assistance: Close supervision Outcome Measures:[facility] Daily Activity Putting on and taking off [...] as patient's WBC count is monitored. [facility]. Per medical team, patient has been resisting idea of SNF. PT/OT have yet to see patient today. Director Digital Strategy attempted to meet with patient at bedside [...] expects to be discharged to: Home with [facility] vs SNF Spoke to MEDIA LIAISON OFFICER. Pt has 2 sons. The son that is the main caregiver is hospitalized at [facility]. Other son is in [place] for a wedding. Pt is functioning at [...] accept (no beds). PT has been to [facility] and wont go back. P used to workat [employer] and does not want to go there. Pt requests referral be made to [facility]. Unsure when son in hospital will be released. Anticipates son in [place] will return home Sunday/Sunday depending on flughts. I have not told him that I am sick. I don't want to ruin or cut short his vacation. Plan- TBD home with or without hhc vs SNF pending acceptance and precert. CT will follow. * Love Maria Luisa Gibbs, HUB INVENTORY SPECIALIST-HEAD SCORER - 10/11/2023 10:15 AM EDT Daryn Shah [...] scan of the abdomen 01/05/2020 ACCESSION NUMBER(S): [id number] ORDERING CLINICIAN: FLAVIO MILES TECHNIQUE: Axial noncontrast [...] Normal caliber. GALLBLADDER: Status post cholecystectomy. PANCREAS: Mjyt-wd-kosntjim fatty atrophy of the pancreas. SPLEEN: Splenomegaly [...] Vlad Araya 10/10/2023 3:17 AM Dictation workstation: [id number] XR chest 1 view Narrative: Interpreted By: Vlad Araya, STUDY: XR CHEST 1 VIEW; 10/10/2023 2:03 am INDICATION: Signs/Symptoms:weakness. COMPARISON: Chest x-ray 09/08/2022 ACCESSION NUMBER(S): [id number] ORDERING CLINICIAN: FLAVIO MILES FINDINGS: Multiple overlying leads are present. CARDIOMEDIASTINAL SILHOUETTE: Cardiomediastinal silhouette is stable in size and configuration. LUNGS: No consolidation, pleural effusion or pneumothorax. ABDOMEN: No remarkable upper abdominal findings. BONES: Multilevel degenerative changes of the spine. Bilateral shoulder osteoarthrosis. Impression: No acute cardiopulmonary process. MACRO: None Signed by: Vlad Araya 10/10/2023 2:11 AM Dictation workstation: [id number] Physical Exam General Appearance: AAO x 3, [...] facility. -PT OT, patient will need placement fpc facility. #4 chronic atrial fibrillation - Initial [...] services Type of Post Acute Facility Services half-way Type of Home Care Services Home OT;Home PT;Home nursing visits Patient expects to be discharged to: Home with [facility] new vs SNF Does the patient need [...] No Patient Choice Provider Choice list and [facility] website (https://medicare.gov/care-compare#search) for post-acute Quality and Resource Measure Data were provided and reviewed with: Patient REMOTE COVERAGE- Attempt to reach pt several times, reached out to nurse for assistance in same. Ptreturned TCC call from room phone, role of TCC explained. Demographics confirmed. PAP- with last visit 08/27 and next visit in December (per pt) Pharmacy is either [facility] or [facility]- takes meds as prescribed, able to afford and obtain. Non insulin dependent DM II checking sugar a couple times a week. Pt lives with son, is either wheelchair or bedbound, has not walked in several years. Has and uses power chair, wheelchair, trapeze bar. Per care rounds pt tearful on talk of SNF dueto bad experience at [facility]. Discussed same with pt who states, Not [facility]. I would maybe go to a [facility] one but would have to talk [...] pain End of Session Communication: Bedside nurse, Cold Roller End of Session Patient Position: Bed, 3 [...] Prior Function Per Pt/Caregiver Report Level of Keyes: Independent with ADLs and functional transfers Receives [...] she will try again tomorrow) Outcome Measures: [facility] Basic Mobility Turning from your back to [...] Fair End of Session Communication: Bedside nurse, Cold Roller End of Session Patient Position: Bed, 3 [...] bed and trapeze Prior Function: Level of Keyes: Independent with ADLs and functional transfers Receives [...] Strength: Strength Comments: BUE 4-/5 Outcome Measures: [facility] Daily Activity Putting on and taking off [...] 10/10/23 Expected End: 10/24/23 documented in this [facility] Work Phone: 1([phone]) 233-305807-08-2024 Hospital course Narrative* Gunjan Glass Carlos Mohr, HUB INVENTORY SPECIALIST-HEAD SCORER - 10/15/2023 9:08 AM EDT Discharge Diagnosis [...] Status Extra Urine Draper Tube Collected (10/10/23 0548) Urinalysis with Reflex Culture and Microscopic In [...] Center 12/18/2023 1:00 PM Huan Mcdaniel MD [id number] [facility] 07/18/2024 1:00 PM MACARENA Natarajan, DNP [id number] [facility] MACARENA Etienne documented in this [facility] Work Phone: 1([phone]) 203-250707-07-2024 Plan of care note* Care Plan - [...] Recommendations to address these barriers include . [facility]07-06-2024 Plan of care note* Care Plan - [...] Recommendations to address these barriers include . [facility] Work Phone: 1([phone]) [phone] Plan of care note* Care Plan - [...] Pain less than 3/10 through this shift [facility]07-05-2024 Nurse Note* Yennifer Gregg RN - 10/12/2023 6:34 PM EDT 10/11/23 am to 10/12/23 pm 963 ml intake only. Pt is declining meals. [facility] Work Phone: 1([phone]) 243-705407-05-2024 Plan of care note* Care Plan - [...] by end of the shift Outcome: Progressing [facility] Work Phone: [phone] Plan of care note* Care Plan - [...] Outcome: Progressing Goal: Promote/optimize nutrition Outcome: Progressing [facility] Work Phone: [phone] Plan of care note* Care Plan - Yennifer Gregg RN - 10/11/2023 3:08 PM EDT The patient's goals for the shift include The clinical goals for the shift include remain comfortable, use call light for any needs through this shift. [facility] Work Phone: [phone]) 319-320307-04-2024 Consult note* Ru Mills, - 10/11/2023 11:13 [...] 75 mL/hr, Last Rate: 75 mL/hr (10/11/23 9020) PRN medications PRN medications: acetaminophen, albuterol, baclofen, [...] consult Principal Problem: Hyponatremia Ru Mills DO [facility] Work Phone: 1(716) 621-684007-04-2024 Consult note* Ru Mills DO - 10/11/2023 [...] condition. Laurent Martínez RN Wound /Diabetic Education [phone] Laurent Martínez RN 10/10/2023 12:45 PM * [...] help prepare meals, has groceries delivered from [facility]. Does not like meat - cheese and [...] (kCal): 2100 kCal Method for Estimating Needs: Josephine St Jeor = 3420-4180 kcal Total Protein Estimated Needs (g): 100 [...] Yennifer Harper RDN, LD documented in this [facility] Work Phone: 1([phone]) 340-955907-04-2024 Plan of care note* Care Plan - [...] goals for the shift include remain comortable [facility] Work Phone: [phone]) [phone] Consult note* Laurent Martínez RN - 10/10/2023 [...] or changes in patient condition. Laurent Martínez group fitness instructor /Diabetic Education [phone] Laurent Martínez RN 10/10/2023 12:45 PM [facility]07-03-2024 Consult note* Yennifer Harper RDN, LD - [...] help prepare meals, has groceries delivered from [facility]. Does not like meat - cheese and [...] (kCal): 2100 kCal Method for Estimating Needs: Josephine St Jeor = 0184-8430 kcal Total Protein Estimated Needs (g): 100 [...] (min): 30 minutes Yennifer Harper RDN, LD [facility] Work Phone: 1([phone]) 421-644207-03-2024 Plan of care note* Care Plan - [...] include to remain comfortable throughout the shift. [facility] Work Phone: [phone]) [phone] Note* Treatment Plan - MACARENA Gamboa - [...] coherent and conversant, no focal motor deficits. [facility] Work Phone: [phone] History and physical note* Ghasem E Ashelfah, MD - 10/10/2023 4:27 AM EDT HISTORY AND PHYSICAL EXAMINATION Daryn Shah 1945 77 y.o. [id number] 10/10/23 4:27 AM CHIEF COMPLAINT: Generalized weakness. HISTORY OF PRESENT ILLNESS: This is a 77 years old female patient with past medical history as mentioned below [facility] because of not feeling well, weakness [...] Date/Time CT abdomen pelvis wo IV contrast [[id number]] Collected: 10/10/23317 Order Status: Completed Updated: 10/10/23317 Narrative: Interpreted By: Vlad Araya, STUDY: CT ABDOMEN PELVIS WO IV CONTRAST; 10/10/2023 2:45 am INDICATION: Signs/Symptoms:back pain w/o injury. COMPARISON: CT scan of the abdomen 01/05/2020 ACCESSION NUMBER(S): [id number] ORDERING CLINICIAN: FLAVIO MILES TECHNIQUE: Axial noncontrast [...] Normal caliber. GALLBLADDER: Status post cholecystectomy. PANCREAS: Awtp-rp-ayptjeph fatty atrophy of the pancreas. SPLEEN: Splenomegaly [...] Vlad Araya 10/10/2023 3:17 AM Dictation workstation: [id number] XR chest 1 view [[id number]] Collected: 10/10/23211 Order Status: Completed Updated: 10/10/23211 Narrative: Interpreted By: Vlad Araya, STUDY: XR CHEST 1 VIEW; 10/10/2023 2:03 am INDICATION: Signs/Symptoms:weakness. COMPARISON: Chest x-ray 09/08/2022 ACCESSION NUMBER(S): [id number] ORDERING CLINICIAN: FLAVIO MILES FINDINGS: Multiple overlying leads are present. CARDIOMEDIASTINAL SILHOUETTE: Cardiomediastinal silhouette is stable in size and configuration. LUNGS: No consolidation, pleural effusion or pneumothorax. ABDOMEN: No remarkable upper abdominal findings. BONES: Multilevel degenerative changes of the spine. Bilateral shoulder osteoarthrosis. Impression: No acute cardiopulmonary process. MACRO: None Signed by: Vlad Araya 10/10/2023 2:11 AM Dictation workstation: [id number] Assessment/Plan Principal Problem: Hyponatremia #1 hyponatremia: In [...] PT OT, patient may need placement to fpc facility. #4 chronic atrial fibrillation: Initial heart [...] resuscitated. Renetta Romero MD 10/10/23 6:44 AM [facility] Work Phone: [phone]) [phone] History and physical note* Renetta Romero MD - 10/10/2023 4:27 AM EDT HISTORY AND PHYSICAL EXAMINATION Daryn Shah 1945 77 y.o. [id number] 10/10/23 4:27 AM CHIEF COMPLAINT: Generalized weakness. [...] Date/Time CT abdomen pelvis wo IV contrast [[id number]] Collected: 10/10/23317 Order Status: Completed Updated: 10/10/23317 Narrative: Interpreted By: Vlad Araya, STUDY: CT ABDOMEN PELVIS WO IV CONTRAST; 10/10/2023 2:45 am INDICATION: Signs/Symptoms:back pain w/o injury. COMPARISON: CT scan of the abdomen 01/05/2020 ACCESSION NUMBER(S): [id number] ORDERING CLINICIAN: FLAVIO MILES TECHNIQUE: Axial noncontrast [...] Normal caliber. GALLBLADDER: Status post cholecystectomy. PANCREAS: Wegs-ob-huyxvhds fatty atrophy of the pancreas. SPLEEN: Splenomegaly [...] Vlad Araya 10/10/2023 3:17 AM Dictation workstation: [id number] XR chest 1 view [[id number]] Collected: 10/10/23211 Order Status: Completed Updated: 10/10/23211 Narrative: Interpreted By: Vlad Araya, STUDY: XR CHEST 1 VIEW; 10/10/2023 2:03 am INDICATION: Signs/Symptoms:weakness. COMPARISON: Chest x-ray 09/08/2022 ACCESSION NUMBER(S): [id number] ORDERING CLINICIAN: FLAVIO MILES FINDINGS: Multiple overlying leads are present. CARDIOMEDIASTINAL SILHOUETTE: Cardiomediastinal silhouette is stable in size and configuration. LUNGS: No consolidation, pleural effusion or pneumothorax. ABDOMEN: No remarkable upper abdominal findings. BONES: Multilevel degenerative changes of the spine. Bilateral shoulder osteoarthrosis. Impression: No acute cardiopulmonary process. MACRO: None Signed by: Vlad Araya 10/10/2023 2:11 AM Dictation workstation: [id number] Assessment/Plan Principal Problem: Hyponatremia #1 hyponatremia: In [...] PT OT, patient may need placement to fpc facility. #4 chronic atrial fibrillation: Initial heart [...] MD 10/10/23 6:44 AM documented in this [facility] Work Phone: [phone] Emergency department Note* Flavio Demetrio Miles, - [...] History provided by: EMS personnel and patient beam saw operator used: No No data recorded Patient History [...] Miles DO 10/10/23 0402 documented in this [facility] Work Phone: [phone] Physician Emergency department Note* Flavio Miles DO [...] History provided by: EMS personnel and patient beam saw operator used: No No data recorded Patient History [...] Procedure Procedures Flavio Miles DO 10/10/23 0402 [facility] Work Phone: 1([phone]) 108-895305-13-2024 History of Present illness Narrative* Jojo You [...] Care - Established; Future documented in this [facility] Work Phone: [phone]) [phone] History of Present illness Narrative* Dominique Shah, BryannaD - 08/02/2023 9:00 AM EDT Pharmacist Clinic: Anticoagulation Management Daryn Shah was referred to the Clinical Pharmacy Team for their anticoagulation management. Referring Provider: Marleen Sigala APRN-CN* PHARMACY ASSESSMENT Allergies Reviewed? Yes Home Pharmacy Reviewed? Yes, describe: fills w/ mail order, [facility] Affordability/Accessibility: cost is a barrier, patient will be screened for [facility] PAP, wheelchair bound and has trouble w/ transportation, patient's son helps picked edge sewing machine operator medications if needed, son lives [...] cholesterol range is 130 to 320 mg/dL [id number] Score Appropriate? Yes - dx of afib [id number] Score: 5 Age > 75 (+2) Sex Female (+1) CHF hx No (+0) Hypertension hx Yes (+1) Stroke/TIA/thromboembolism hx No (+0) Vascular disease hx (prior NC, peripheral artery disease, aortic plaque) No (+0) [...] all patient questions and concerns - Discussed [facility] PAP and benefits to patient if needed in future - Counseled patient to take Xarelto with food RECOMMENDATIONS/PLAN Anticoagulation - continue current treatment regimen.. Xarelto 20 mg daily Affordability/Accessibility - Screen for erentoures Assistance Fund ([facility]) Patient Assistance Program (PAP). Patient is expected to be eligible for this program. Patient declines screening for [facility] PAP at this time. Patient reports [...] and clinical pharmacy team. documented in this [facility] Work Phone: [phone]) 688-593404-12-2024 History of Present illness Narrative* Marleen Sigala [...] this date Cardiovascular hx: Atrial fibrillation, persistent: -[id number] Score of 5; currently on Xarelto 20mg; [...] results for input(s): ABO in the last 48819 hours. HEME/ENDO: Recent Labs 05/21/23 1533 03/06/23 [...] (from the past 4464 hour(s)). Echocardiogram: Echocardiogram [place] [id number], TRANSTHORACIC ECHOCARDIOGRAM REPORT Patient Name: DARYN Glass ALYSSA Reading Physician: [id number] Norman Valdivia MD Study Date: 09/11/2022 Referring ANGELIQUE CLARKE Physician: MRN/PID: [id number] PCP: Accession/Order#: [id number] Department [address] Location: Date of : 1945 Fellow: Gender: F Nurse: Admit Date: 09/08/2022 Planer Tailer: BJ Gates RVT Admission Status: Inpatient - Additional Staff: Routine Height: 167.00 cm CC Report to: Weight: 116.00 kg Study Type: Echocardiogram BSA: 2.21 m2 Blood Pressure: 111 /70 mmHg Diagnosis/ICD: I48.0-Paroxysmal atrial fibrillation Indication: AFib Procedure/CPT: Echo Complete w Full Doppler-21091 Patient History: Pertinent History: Previous echo 02-14-2019. [...] LA Area A2C: 26.8 cm2 LA Major [place] A4C: 6.8 cm LA [place] A2C: 5.7 cm LA Volume Index: 44.3 [...] 1.1 m/s (0.6-0.9m/s) PV Max P.5 mmHg [id number] Norman Valdivia MD Electronically signed on 09/11/2022 [...] - Stable; continue atenolol 100 mg daily -[id number]-HKFe Score of 5; currently on Xarelto 20mg; [...] the patient's care. Marleen Sigala DNP, MAYCO, TRAUMA REGISTRAR-C Division of Cardiovascular Medicine [facility] documented in this [facility] Work Phone: 1([phone]) 640-648703-26-2024 History of Present illness Narrative* Huan Mcdaniel [...] Good job with that documented in this [facility] Work Phone: 1([phone]) 128-317103-03-2024 Emergency department Note* Flavio Miles, DO - [...] be further evaluated. History provided by: Patient beam saw operator used: No [place] Coma Scale Score: 15 Patient History Past [...] diabetes mellitus with diabetic chronic kidney disease ([facility]/HCC) 03/07/2022 Stage 3 chronic kidney disease due [...] Flavio Miles DO 06/10/231850 [facility] Phone: 1([phone]) [phone] Physician Emergency department Note* Flavio Miles DO [...] be further evaluated. History provided by: Patient beam saw operator used: No [place] Coma Scale Score: 15 [...] worse. Procedure Procedures Flavio Miles DO 06/10/23 136 [facility] Work Phone: [phone]) [phone] History of Present illness Narrative* Huan Mcdaniel [...] use of insulin (CMS/HCC) documented in this [facility] Work Phone: [phone] History of Present illness Narrative* Huan Mcdaniel [...] this date, 03/13/23 for a telehealth visit. [facility] No longer has [facility]. 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 She was all ready to go today. Could not use wheelchair van. That should be better nexttime. Glaucoma and cataracts - noted to have high pressure but not able to get back to treat. Has been referred to [facility] for a cataract and this in [...] palliative care. Has had PT, OT and SAW SETTER but none now. Activity- she gets in [...] at bedside and uses bedpan. Goes to [facility] and slide over. Has a walkerbut uses [...] Morbid obesity with BMI of 40.0-44.9, adult ([facility]) Diabetes 1.5, managed as type 2 ([facility]) - metFORMIN (Glucophage) 500 mg tablet; Take [...] cataract of both eyes documented in this [facility] Work Phone: 1([phone]) 620-627009-05-2023 History of Present illness Narrative* Huan Mcdaniel [...] palliative care. Has had PT, OT and SAW SETTER but none now. Activity- she gets in [...] and uses bedpan. Plans to go to [facility] and slide over. Has awalker but uses [...] Visit Anxiety - Primary Asthma Atrial fibrillation ([facility]/HCC) Benign essential hypertension Depression, major, single episode, moderate ([facility]) Diabetes mellitus type 2, controlled ([facility]) Diarrhea Generalized muscle weakness Hyperlipidemia Lumbar facet arthropathy Lymphedema of leg Morbid obesity with BMI of 40.0-44.9, adult ([facility]) Neurodermatitis Personal history of colonic polyps Primary osteoarthritis of both knees Vitamin D deficiency documented in this [facility] Work Phone: [phone] 978-270707-07-2023 History of Present illness Narrative* Huan Mcdaniel MD - 10/13/2022 2:00 PM EDT Subjective Patient ID: Daryn Shah is a 76 y.o. female who presents for Follow-up (Was in hospital for uti, developed C. Diff and was at [facility], [place]./Discuss ordering labs). Virtual or Telephone Consent A telephone visit (audio only) between the patient (at the originating site) and the provider (at the distant site) was utilized to provide this telehealth service. Verbal consent was requested and obtained from Daryn Shah on this date, 10/13/22 for a telehealth visit. [facility] Hospital and SNF follow up. Admit to [facility] 09/08-11/29. Then at [facility], [place] for 2- 3 weeks. She says that [...] a blood pressure of 115/55 mmHg, heart avxj110 beatsa minute, respiratory 20/min saturating 92% room [...] Is accepted 10/13/22 She was transferred to [facility] [place] and developed diarrhea about 2 days after [...] around BP today 113/56 Weight at [facility] was 248. Review of Systems Objective There were no vitals taken for this visit. Physical Exam Audio only so no exam. Oriented and able to communicate will with no distress. Assessment/Plan Problem List Items Addressed This Visit Asthma Atrial fibrillation (CMS/[facility]) - Primary Depression, major, single episode, moderate [...] HHC next week and needs that for Snf. PT probably not going to be helpful. She is to start monitoring BS but has been good. documented in this [facility] Work Phone: [phone] 311-261406-08-2023 NoteSend Summary: Discharge Summary Providers: Provider RoleProvider [...] Intermediate Care Facility Vital Signs: T PRBPMAPSpO2 Value36.00175098/6596% Date/Time09/14 7:5309/14 7:5309/14 7:5309/14 7:5309/14 7:53 Range(36.3C - 36.8C ) (59 - 81 ) (16 - 20 ) (95 - 131 )/ (64 - 82 ) (96% - 98% ) Date: Weight/Scale Type:Height: 08-Sep-2022 19:24645.5 kg / vbs461.5 cm Physical Exam: Constitutional: Well developed, obese [...] Pending: None Radiology Results - Pending: None [place] (more content not included)...[facility]06-03-2023 NoteClinical Event: Clinical Event Note: TopicClinic [...] Note Last Updated: 09-Sep-2022 21:16 by Chidi Torres)[facility]06-02-2023 NoteHistory of Present Illness: Admission Reason: [...] a day. Objective: Objective Information: T PRBPMAPSpO2 Value37.3271137/7098% Date/Time09/08 16:/2 17:306/2 17:306/2 17:306/2 17:30 Range(37.4C [...] Medications 1. Acetaminophen: 65 (more content not included)...[facility] 12-02-2021 Chief complaint Narrative - Reported* An interactive audio and video telecommunication system which permits real time communications between the patient (at the originating site) and provider (at the distant site) was utilized to providethis telehealth service. * Verbal consent was requested and obtained from DARYN SHAH on this date, 12/02/2021 03:30 PM , for a telehealth visit. * pretty [facility] Work Phone: [phone] 257-811505-26-2022 Chief complaint Narrative - Reported* An interactive audio and video telecommunication system which permits real time communications between the patient (at the originating site) and provider (at the distant site) was utilized to providethis telehealth service. * Verbal consent was requested and obtained from DARYN SHAH on this date, 09/01/2021 11:30 AM , for a telehealth visit. * [facility] certification F2F [facility] Work Phone: [phone]) 309-935101-01-2022 History of Present illness Narrative* Asthma - [...] no longer. Has had PT, OT and SAW SETTER. Done with all of that. She is [...] expected for medication profile * CSA 10/30/19 -[facility] Work Phone: [phone] 211-187801-01-2022 History of Present illness Narrative* Asthma - [...] no longer. Has had PT, OT and SAW SETTER. Done with all of that. She is [...] expected for medication profile * CSA 10/30/19 [facility] Work Phone: [phone] 431-358310-29-2021 History of Present illness Narrative* Finally able [...] no longer. Has had PT, OT and SAW SETTER. Done with all of that. She is [...] expected for medication profile * CSA 10/30/19 -[facility] Work Phone: [phone]) 368-161007-30-2021 Chief complaint Narrative - Reported* An interactive audio and video telecommunication system which permits real time communications between the patient (at the originating site) and provider (at the distant site) was utilized to providethis telehealth service. * Verbal consent was requested and obtained from DARYN SHAH on this date, 11/05/2020 01:30 PM , for a telehealth visit. * Electric Wheelchair evaluation -[facility] Work Phone: [phone]) [phone] History of Present illness Narrative* 75-year-old female [...] every day and has been largely controlled. [facility] [address] Work Phone: [phone] History of Present illness Narrative* 76-year-old female [...] * Problem #2 hypertension * -Controlled today [facility] [address] Work Phone: Consult note Author Jones Greer [facility] Note Date/Time July 01, 2024 2:0 7pm [facility] Medical Records Department [address] [place] [address] Anesthesia Postop Eval I 07/01/24 1406 MR#: [id number] Acct: [id number] Name: DARYN SHAH Rep #:[id number] 1 : 1945 78 From: Jones Greer PCP: April Mullen MD Status:[facility] Y Race: C Location: [place] [address] Anesthesia: Postop Eval I Current Vital Signs [...] Jones Acevedo Signature: Date CC: ~ Signed [facility] Work Phone: Consult note Author Jurgen Rosario [facility] Note Date/Time October 28, 2024 11:3 4am [facility] Medical Records Department [address] [place] [address] Pre-Anesthesia Evaluation 10/28/24 1130 MR#: [id number] Acct: [id number] Name: DARYN SHAH Rep #:[id number] : 1945 78 From: Jurgen Licea PCP: April Mullen MD Status:REG SDC Y Race: C Location: [place] [address] ASA Classification* ASA Classification ASA Classification: 4 [...] Procedure(s): EGD Anesthesia History Anesthesia History - blunger loader: Anesthesia History - blunger loader Hx Hospitalization Yes: [facility] 10/21/24 08:35 Any [...] take am of surgery PONV PONV - blunger loader: PONV - blunger loader Female Yes 10/21/24 08:35 HX of Motion [...] 10/28/24 10:53 Respiratory Assessment Respiratory Assessment - blunger loader: Respiratory Tract Infection Hx - blunger loader Hx Respiratory Tract Infection No 10/21/24 08:35 STOP Sleep Apnea STOP Sleep Apnea - blunger loader: STOP Sleep Apnea - blunger loader Hx Hypertension Yes 10/21/24 08:35 Hx Sleep [...] Tobacco Use History Tobacco Use History - blunger loader: Tobacco Use History - blunger loader Tobacco Use Smoking Status Never smoker 10/21/24 08:35 Hx Tobacco Use No 10/21/24 08:35 Years Smoking Packs Smoked per Day Smoking Cessation Date was within the last 15 years Hx Smoking Cessation Date Hx Smoking Cessation Counseling Hematologic Medial History Hematologic Hx - blunger loader: Hematologic Medical Hx - soot blower Hx of Blood Transfusion No 10/21/24 08:35 Hx of Transfusion in last 3 No 10/21/24 08:35 Months Date of Last Transfusion (if within last 3 months) Ever experience any problems No 10/21/24 08:35 with transfusion(s)? Specify any problems Hx of Preganancy in last 3 No 10/21/24 08:35 Months Nurse Filling Out Transfusion [facility] 10/21/24 08:35 & Questions: Date: 10/21/24 10/21/24 08:35 Time: 08:37 10/21/24 08:35 Patient unable to answer at this time (ie. confused, unrespo /Reproduction History /Reproductive History - blunger loader: /Reproductive Hx- blunger loader Hx Now No 10/21/24 08:35 Gestational Age [...] of irregular heartbeat Aortic stenosis Lives in [facility] Wears glasses Wears partial dentures Marijuana use [...] Allergies Allergy Verified 10/28/24 10:53 Family History (Reviewed 10/09/24 @ 15:04 by Yennifer Pemberton MEDIA LIAISON OFFICER, MEDIA LIAISON OFFICER-C) Mother Alzheimer dementia Breast cancer Heart disease Brother Cystic fibrosis Surgical History History of colonoscopy S/P laminectomy History of tubal ligation Hx of cholecystectomy H/O section Social History Smoking Status: Never smoker alcohol intake: never Review of Systems (Anesthesia) ROS Narrative System reviewed and no additional complaints, except as documented. 10/28/24 1134 <Electronically signed by Jurgen Rosario MD> Date _ [facility]: Date CC: ~ Signed [facility] Work Phone: Consult note Author Jones Greer [facility] Note Date/Time October 28, 2024 12:2 9pm [facility] Medical Records Department [address] [place] [address] Anesthesia Postop Eval I 10/28/24 1228 MR#: [id number] Acct: [id number] Name: DARYN SHAH BLANE Rep #:[id number] : 1945 78 From: Jones Greer PCP: April Mullen MD Status:REG SDC Y Race: C Location: [place] [address] Anesthesia: Postop Eval I Current Vital Signs [...] Jones Cejaignfatou Signature: Date CC: ~ Signed [facility] Work Phone: Consult note Author Jurgen Rosario [facility] Note Date/Time October 28, 2024 12:3 3pm [facility] Medical Records Department [address] [place] [address] Anesthesia Postop Eval II 10/28/24 1232 MR#: [id number] Acct: [id number] Name: DARYN SHAH BLANE Rep #:[id number] : 1945 78 From: Jurgen Licea PCP: April Mullen MD Status:REG [facility] Y Race: C Location: [place] [address] Anesthesia Postop Eval I Sum Postop Eval [...] MD Cosigner Signature: Date CC: ~ Signed [facility] Work Phone: Evaluation note* Diagnosis Chronic atrial [...] Clostridium difficile enteritis documented in this encounter [facility] Work Phone: Evaluation note* Diagnosis Anxiety- Primary [...] Vitamin D deficiency documented in this encounter [facility] Work Phone: Evaluation note* Diagnosis Morbid obesity with BMI of 40.0-44.9, adult ([facility])- Primary Diabetes 1.5, managed as type 2 ([facility]) Anxiety Anxiety state, unspecified Benign essential hypertension Essential hypertension, benign Hyperlipidemia, unspecified hyperlipidemia type Hypokalemia Hypopotassemia Hypomagnesemia Disorders of magnesium metabolism Iron deficiency anemia secondary to inadequate dietary iron intake Vitamin D deficiency Age-related incipient cataract of both eyes documented in this encounter [facility] Work Phone: [phone] note* Diagnosis Syndrome of inappropriate secretion of antidiuretic hormone ([facility]/HCC)- Primary 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, managed as type 2 ([facility]) Anxiety Anxiety state, unspecified Venous stasis ulcer with varicose veins of lower extremity ([facility]) Chronic atrial fibrillation ([facility]) Atrial fibrillation Depression, major, single episode, moderate ([facility]) Morbid obesity with BMI of 40.0-44.9, adult ([facility]) 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, without long-term current use of insulin ([facility]) documented in this encounter [facility] Work Phone: Evaluation note* Diagnosis Contusion of right foot, initial encounter- Primary Hematoma of right foot documented in this encounter [facility] Work Phone: [phone] note* Diagnosis Hematoma of right foot- Primary Anxiety Anxiety state, unspecified documented in this encounter [facility] Work Phone: [phone] note* Diagnosis Persistent atrial fibrillation (Multi)- Primary Atrial fibrillation documented in this encounter [facility] Work Phone: [phone] note* Diagnosis Persistent atrial fibrillation (Multi) Atrial fibrillation documented in this encounter [facility] Work Phone: Evaluation note* Diagnosis Vitamin D deficiency- Primary Chronic atrial fibrillation (Multi) Atrial fibrillation Diabetes 1.5, managed as type 2 (Multi) 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) Other disorders of neurohypophysis documented in this encounter [facility] Work Phone: Evaluation note* Diagnosis Vertebral osteomyelitis (Multi)- Primary Unspecified osteomyelitis, other specified site documented in this encounter [facility] Work Phone: Evaluation note* Diagnosis S/P laminectomy- Primary Other postprocedural status documented in this encounter [facility] Work Phone: Evaluation note* Diagnosis Hyponatremia- Primary Hyposmolality and/or hyponatremia Hyponatremia Hyposmolality and/or hyponatremia Benign essential hypertension Essential hypertension, benign Iron deficiency anemia secondary to inadequate dietary iron intake Mixed hyperlipidemia documented in this encounter [facility] Work Phone: Evaluation note* Diagnosis Discitis, unspecified, [...] or lung (Multi) documented in this encounter [facility] Work Phone: Evaluation note* Diagnosis Spondylosis with myelopathy, thoracic region- Primary documented in this encounter [facility] Work Phone: Evaluation note* Diagnosis Vertebral osteomyelitis (Multi)- Primary Unspecified osteomyelitis, other specified site Discitis, unspecified, thoracic region documented in this encounter [facility] Work Phone: History and physical note Author Jacinto Munoz [facility] Note Date/Time October 28, 2024 11:4 7am [facility] Medical Records Department [address] [place] [address] History & Physical Exam 10/28/24 1144 MR#: [id number] Acct: [id number] Name: DARYN SHAH Rep #:[id number] : 1945 78 From: Jacinto Munoz DO PCP: April Mullen MD Status:[facility] Location: [address] HPI - General General Date of Admission: 10/28/24 Date of Service: 10/28/24 Chief Complaint: Anemia HPI Narrative DARYN SHAH, is a 78 F who presents with Chief Complaint: anemia [facility] ED 12.4.24 with low Hgb 6.9 BGI [...] Resected and retrieved. Clip was placed. 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 OV 07.31.24 Pt here today to review results of endoscopy. She has no GI complaints. She denies dark or tarry stools. She continues with pantoprazole 40 mg daily and iron. She is having a bm every 2-3 days and feels mild constipationfrom the iron. Last hgb 11.4 (4.15.25). [facility] Medical History Post-menopausal History of ulceration Gastric reflux History of stress test History of irregular heartbeat Aortic stenosis Lives in [facility] Wears glasses Wears partial dentures Marijuana use [...] April Mullen MD; Jacinto Munoz DO~ Signed [facility] Work Phone: History of Present illness [...] in their home. * Based on this hfrj-nz-yibj evaluation, the patient has functional limitations that [...] home for palliative care, PT, OT and SAW SETTER. She is realizing that she cannot do anything about many of the things. Seemed to get worse after Cody from Palliative care put her on Effexor and now it is costly do will go back to Paxil. monitor worker from [facility] comes monthly. . She is not [...] expected for medication profile * CSA 10/30/19 -[facility] Work Phone: History of Present illness Narrative* Has changed [facility] companies and needs new certification. She continues [...] insurance would like to get someone for [facility]. Has had PT, OT and SAW SETTER. She is realizing that she cannot do [...] appropriate to continue to prescribe this medication. -[facility] Work Phone: History of Present illness Narrative* [...] palliative care. Has had PT, OT and SAW SETTER. She is realizing that she cannot do [...] appropriate to continue to prescribe this medication. -[facility] Work Phone: History of Present illness Narrative* [...] palliative care. Has had PT, OT and SAW SETTER but none now. . She is realizing [...] this one and talked to herabout it -[facility] Work Phone: History of Present illness Narrative* [...] [place] and [place]. * No longer has [facility]. She is doing better and able to [...] palliative care. Has had PT, OT and SAW SETTER but none now. . She is realizing [...] and uses bedpan. Plans to go to [facility] and slide over. Has a walker but [...] this one and talked to herabout it [facility] Work Phone: Hospital Discharge instructions* Attachments The following attachments cannot be sent through Care Everywhere. * Minor Contusion ED (Chilean) [facility]: reason for referral (narrative)* Consultation (Routine) - Authorized Specialty Diagnoses / Procedures Referred By Akiko delgado Referred To Contact 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, managed as type 2 (CMS/HCC) Procedures Follow Up In Primary Care - Established Huan Mcdaniel MD [address] [facility], [place] [id number] Referral ID Status Reason Start Date Expiration Date V isits Requested Visits Authorized [id number] Authorized 03/13/2023 03/12/2024 1 1 [facility]icine [facility] Work Phone: reason for referral (narrative)* Consultation (Routine) - Authorized Specialty Diagnoses / Procedures Referred By Akiko delgado Referred To Contact 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, managed as type 2 (CMS/HCC) Procedures Follow Up In Primary Care - Established Huan Mcdaniel MD [address] [facility], [address] [address] Referral ID Status Reason Start Date Expiration Date V isits Requested Visits Authorized [id number] Authorized 04/20/2023 04/19/2024 1 1 edicine [facility] Work Phone: Rehohw for referral (narrative)* Consultation (Routine) - Authorized Specialty Diagnoses / Procedures Referred By Contac t Referred To Contact Pharmacy Diagnoses Persistent atrial fibrillation (Multi) Marleen Sigala APRN-CNP, RAMON [address] [facility] [address] [place] [id number] [facility] [address] [place] [address] Referral ID Status Reason Start Date Expiration Date Visits Requested Visits Authorized [id number] Authorized Specialty Services Required 07/20/2023 07/19/2024 1 1 T [facility] Work Phone: Rewvkb for referral (narrative)* Consultation (Routine) - Authorized Specialty Diagnoses / Procedures Referred By Contac t Referred To Contact Primary Care Procedures Follow Up In Primary Care - Established Huan Mcdaniel MD [address] [facility], [address] [place] [id number] Referral ID Status Reason Start Date Expiration Date V isits Requested Visits Authorized [id number] Authorized 08/20/2023 08/19/2024 1 1 [facility] Work Phone: Reisyb for referral (narrative)No reason for [facility]: Reason for visit Narrative* Auth/Cert Specialty Diagnoses / Procedures Referred By Contac t Referred To Contact Diagnoses Metastatic Lesions/Thoracic spine Procedures No coded [place] [address] [place] [address] [facility] [address] [place] [address] Referral ID Status Reason Start Date Expiration Date Visits Re quested Visits Authorized [id number] 1 1 [facility] Work Phone: Summary Purpose Family History No [...] Will Yes March 28 11:57am Power of Land Planner Yes March 28, 2024 11:57am Name of Medical Power of Land Planner eva barrientos March 28, 2024 11:57am Advance Directive Response Recorded Date/ Time Living Will Yes March 28 12:57pm Do you have a Healthcare Pow er of Land Planner? Yes March 28, 2024 12:57pm Name of Medical Power of Land Planner eva barrientos March 28, 2024 12:57pm Living Will No June 30, 2024 11:18am Do you have a Healthcare Pow er of Land Planner? Yes June 30, 2024 11:18am Name of Medical Power of Land Planner AGUSTIN June 30, 2024 11:18am Advance Directive Response Recorded Date/ Time Living Will No June 30, 2024 11:18am Do you have a Healthcare Power of Land Planner? Yes June 30, 2024 11:18am Name of Medical Power of Land Planner SON June 30, 2024 11:18am Advance Directive Response Recorded Date/ Time Living Will No June 30, 2024 11:18am Do you have a Healthcare Power of Land Planner? Yes June 30, 2024 11:18am Name of Medical Power of Land Planner SON June 30, 2024 11:18am Do you have a Healthcare Power of Land Planner? Yes October 21, 2024 8:35am Chief Complaint [...] [place] [address] [address] [facility] [place] [address] Referral ID Status Reason Start Date Expiration Date Visits Requested Visits Authorized [id number] Pending Review Perform Procedure 11/20/2023 11/19/2024 3 3 Specialty Diagnoses / Procedures Referred By Contac t Referred To Contact Pulmonary Disease / Pulmonology [place] [address] [address] [facility] [facility] [place] [address] Referral ID Status Reason Start Date Expiration Date Visits Requested Visits Authorized [id number] Authorized Specialty Services Required 11/20/2023 11/19/2024 1 1 Specialty Diagnoses / Procedures Referred By Akiko delgado Referred To Contact Radiology Diagnoses Vertebral osteomyelitis (Multi) Discitis, unspecified, thoracic region Procedures NM PET CT bone skull base [place] [address] [place] [address] Referral ID Status Reason Start Date Expiration Date Visits Requested Visits Authorized [id number] Pending Review Perform Procedure 12/27/2023 12/26/2024 3 3 Chief Complaint and Reason for Visit Chief Complaint Admit Date DETENTION LAB WORK February 26 4:00am DETENTION LAB WORK March 28 4:00am abnormal labs March 28, 2024 11:52am DETENTION LAB WORK April 03 5:00am DETENTION LAB WORK April 07 5:00am DETENTION LAB WORK April 14, 2024 5:00am Anemia April 28, 2024 1 0:28am DETENTION LAB WORK May 12, 2024 7:20am DETENTION LAB WORK May 27 4:00am LABOWRK June 02, 2024 5:00am DETENTION LAB WORK June 03 4:00am LABWORK June 04, 2024 5:00am Reason for Visit Admit Date Anemia April 28, 2024 1 0:28am Chief Complaint Admit Date DETENTION LAB WORK March 28 4:00am abnormal labs March 28, 2024 11:52am DETENTION LAB WORK April 03 5:00am DETENTION LAB WORK April 07 5:00am DETENTION LAB WORK April 14, 2024 5:00am Anemia April 28, 2024 1 0:28am DETENTION LAB WORK May 12, 2024 7:20am DETENTION LAB WORK May 27 4:00am LABOWRK June 02, 2024 5:00am DETENTION LAB WORK June 03 4:00am LABWORK June 04, 2024 5:00am Reason for Visit Admit Date Anemia April 28, 2024 1 0:28am Anemia July 01, 2024 11: 19am Chief Complaint Admit Date DETENTION LAB WORK March 28 4:00am abnormal labs March 28, 2024 11:52am DETENTION LAB WORK April 03 5:00am DETENTION LAB WORK April 07 5:00am DETENTION LAB WORK April 14, 2024 5:00am Anemia April 28, 2024 1 0:28am DETENTION LAB WORK May 12, 2024 7:20am DETENTION LAB WORK May 27 4:00am LABOWRK June 02, 2024 5:00am DETENTION LAB WORK June 03 4:00am LABWORK June 04, 2024 5:00am DETENTION LAB WORK June 24, 2024 5 :00am Chief Complaint Admit Date Anemia April 28, 2024 1 0:28am DETENTION LAB WORK May 12, 2024 7:20am DETENTION LAB WORK May 27 4:00am LABOWRK June 02, 2024 5:00am DETENTION LAB WORK June 03 4:00am LABWORK June 04, 2024 5:00am DETENTION LAB WORK June 24, 2024 5 :00am DETENTION LAB WORK July 22, 2024 5 :00am [...] 2024 8:5 2am Chief Complaint Admit Date DETENTION LAB WORK June 24, 2024 5 :00am DETENTION LAB WORK July 22, 2024 5 :00am AFIB, CHF, HTN (APRIL GUDIA) July 10:52am Test Result July 31, 2024 8:5 2am CHF August 13, 2024 8:06am Congestive heart failure August 13, 2024 1 0:41am DETENTION LAB WORK August 19, 2024 5:0 0am DETENTION LAB WORK September 16, 2024 5: 00am [...] 2024 2:38p m Chief Complaint Admit Date DETENTION LAB WORK July 22, 2024 5 :00am AFIB, CHF, HTN (APRIL PAULINO) July 10:52am Test Result July 31, 2024 8:5 2am CHF August 13, 2024 8:06am Congestive heart failure August 13, 2024 1 0:41am DETENTION LAB WORK August 19, 2024 5:0 0am DETENTION LAB WORK September 16, 2024 5: 00am [...] section and content) DATE CREATED AUTHOR 11/12/[address] [facility] DATE CREATED AUTHOR AUTHOR'S ORGANIZ ATION 10/24/2020 [facility] DATE CREATED AUTHOR AUTHOR'S ORGANIZ ATION 06/05/2022 [facility] DATE CREATED AUTHOR AUTHOR'S ORGANIZ ATION 09/30/2022 [facility] DATE CREATED AUTHOR AUTHOR'S ORGANIZ ATION 11/15/2023 [facility] DATE CREATED AUTHOR AUTHOR'S ORGANIZ ATION 11/17/2023 [facility] DATE CREATED AUTHOR AUTHOR'S ORGANIZ ATION 03/02/2024 [facility] DATE CREATED AUTHOR AUTHOR'S ORGANIZ ATION 07/16/2024 [facility] DATE CREATED AUTHOR AUTHOR'S ORGANIZ ATION 09/20/2024 [facility] DATE CREATED AUTHOR AUTHOR'S ORGANIZ ATION 11/05/2024 [facility] DATE CREATED AUTHOR AUTHOR'S ORGANIZ ATION 11/09/2024 [facility] Reason for Visit (unrecogniz ed section and content) Reason Comments Follow-up Was in hospital for uti, developed C. 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, without long-term current use of insulin (CMS/HCC) Procedures Follow Up In Primary Care Huan Mcdaniel MD [address] [facility] [place], [place] [address] Referral ID Status Reason Start Date Expiration Date V isits Requested Visits Authorized [id number] Authorized 08/31/2022 02/27/2023 1 1 Reason Comments Med Management Increased depression Reason Comments Follow-up Specialty Diagnoses / Procedures Referred By Akiko delgado Referred To Contact 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, managed as type 2 (CMS/HCC) Procedures Follow Up In Primary Care - Established Huan Mcdaniel MD [address] [facility] [place] [address] [place] [address] Referral ID Status Reason Start Date Expiration Date V isits Requested Visits Authorized [id number] Authorized 03/13/2023 03/12/2024 1 1 Reason Comments Foot Injury Dropped a soup can o nto her right foot. +swelling. Able to move toes. Reason Comments Follow-up ER for right foot co ntusion Reason Comments Atrial Fibrillation Specialty Diagnoses / Procedures Referred By Akiko delgado Referred To Contact Pharmacy Diagnoses Persistent atrial fibrillation (Multi) Marleen Sigala, HUB INVENTORY SPECIALIST-HEAD SCORER, DNP [address] [facility] [place] [address] [place] [address] [facility] [address] [place] [address] Referral ID Status Reason Start Date Expiration Date Visits Requested Visits Authorized [id number] Authorized Specialty Services Required 07/20/2023 07/19/2024 1 1 Reason Comments Med Management Specialty Diagnoses / Procedures Referred By Akiko delgado Referred To Contact Primary Care Diagnoses Chronic atrial fibrillation (Multi) Procedures Follow Up In Primary Care - Established Huan Mcdaniel MD [address] [facility] [address] [place] [address] Referral ID Status Reason Start Date Expiration Date V isits Requested Visits Authorized [id number] Authorized 05/21/2023 05/20/2024 1 1 Reason Comments [...] Hyponatremia Procedures Renetta Moseley MD [address] [place] [address] [address] Referral ID Status Reason Start Date Expiration Date Visits Re quested Visits Authorized [id number] 1 1 Reason Comments Post-op Pt has complaints of back pain where her roberta are that's described as a intermittent aching. Reason Comments Appointment Appointment Care Teams (unrecognized sec tion and content) Community Resource Officer Relationship Specialty Start Date End Date Huan Mcdaniel MD [address] [facility] [address] [place] [phone] PCP - General 12/10/18 Huan Mcdaniel MD [address] [facility] [address] [place] [phone] PCP - [employer] Medicare Advantage PCP 10/07/21 Diana Marcano MA Collection Systems AdministratorRailroad Baggage Porter 10/11/22 Community Resource Officer Relationship Specialty Start Date End Date Huan Mcdaniel MD [address] [facility] [address] [place] [phone] PCP - General 12/10/18 Huan Mcdaniel MD [address] [facility] [address] [place] [phone] PCP - [employer] Medicare Advantage PCP 10/07/21 Diana Marcano MA Collection Systems AdministratorRailroad Baggage Porter 10/11/22 Community Resource Officer Relationship Specialty Start Date End Date Huan Mcdaniel MD [address] [facility] [address] [place] [phone] PCP - General 12/10/18 Huan Mcdaniel MD [address] [facility] [address] [place] [phone] PCP - [place] Medicare Advantage PCP 10/07/21 Community Resource Officer Relationship Specialty Start Date End Date Huan Mcdaniel MD [address] [facility] [address] [place] [address] PCP - General 12/10/18 Huan Mcdaniel MD [address] [facility] [address] [place] [address] PCP - [place] Medicare Advantage PCP 10/07/21 Community Resource Officer Relationship Specialty Start Date End Date Huan Mcdaniel MD [address] [facility] [address] [place] [address] PCP - General 12/10/18 Huan Mcdaniel MD [address] [facility] [address] [place] [address] PCP - [place] Medicare Advantage PCP 10/07/21 Community Resource Officer Relationship Specialty Start Date End Date Huan Mcdaniel MD [address] [facility] [address] [place] [address] PCP - General 12/10/18 Huan Mcdaniel MD [address] [facility] [address] [place] [address] PCP - [place] Medicare Advantage PCP 10/07/21 Huan Mcdaniel MD [address] [facility] [address] [place] [address] PCP - [employer] Medicare Advantage PCP 05/10/23 Community Resource Officer Relationship Specialty Start Date End Date Huan Mcdaniel MD [address] [facility] [address] [place] [address] PCP - General 12/10/18 Huan Mcdaniel MD [address] [facility] [address] [place] [address] PCP - [employer] Medicare Advantage PCP 10/07/21 Huan Mcdaniel MD [address] [facility] [address] [place] [address] PCP - [employer] Medicare Advantage PCP 05/10/23 Community Resource Officer Relationship Specialty Start Date End Date Huan Mcdaniel MD [address] [facility] [address] [place] [address] PCP - General 12/10/18 Huan Mcdaniel MD [address] [facility] [address] [place] [address] PCP - [employer] Medicare Advantage PCP 05/10/23 Community Resource Officer Relationship Specialty Start Date End Date Huan Mcdaniel MD [address] [facility] [address] [place] [address] PCP - General 12/10/18 Huan Mcdaniel MD [address] [facility] [address] [place] [address] PCP - [employer] Medicare Advantage PCP 05/10/23 Community Resource Officer Relationship Specialty Start Date End Date Huan Mcdaniel MD [address] [facility] [address] [place] [address] PCP - General 12/10/18 Huan Mcdaniel MD [address] [facility] [address] [place] [address] PCP - [employer] Medicare Advantage PCP 05/10/23 Community Resource Officer Relationship Specialty Start Date End Date Huan Mcdaniel MD [address] [facility] [address] [place] [address] PCP - General 12/10/18 Huan Mcdaniel MD [address] [facility] [address] [place] [address] PCP - [employer] Medicare Advantage PCP 05/10/23 Community Resource Officer Relationship Specialty Start Date End Date Huan Mcdaniel MD [address] [facility] [address] [place] [address] PCP - General 12/10/18 Huan Mcdaniel MD [address] [facility] [address] [place] [address] PCP - [employer] Medicare Advantage PCP 05/10/23 Community Resource Officer Relationship Specialty Start Date End Date Huan Mcdaniel MD [address] [facility] [address] [place] [address] PCP - General 12/10/18 Huan Mcdaniel MD [address] [facility] [place] [address] [place] [address] PCP - [employer] Medicare Advantage PCP 05/10/23 Community Resource Officer Relationship Specialty Start Date End Date Huan Mcdaniel MD [address] [facility] [address] [place] [address] PCP - General 12/10/18 Huan Mcdaniel MD [address] [facility] [place] [address] [place] [address] PCP - [employer] Medicare Advantage PCP [...] Status: Active Member Role Status Dates Dr. pAril Mullen MD Primary Care Provider Active Start: [...] Active Start: June 24, 2024 Dr. Delgado LUECRO MD Attending Provider Active Start: June 24, [...] End: October 09, 2024 Yennifer Pemberton NP, MEDIA LIAISON OFFICER-C Attending Provider Active Start: October 09, 2024 [...] 2024 End: October 09, 2024 Yennifer Pemberton MEDIA LIAISON OFFICER, MEDIA LIAISON OFFICER-C Attending Provider Active Start: October 09, 2024 [...] RN) 0819 (Given - Provider: Fátima Guadarrama, UZAM) diphenhydrAMINE (BENADryl) capsule 25 mg 25 mg, [...] Iverson, UZMA) 0824 (Given - Provider: Fátima Gudaarrama RN)1315 (Given - Provider: Fátima Guadarrama RN)1700 [...] (Due) 0636 (Due - Provider: Kenya Vera, EXECUTIVE RECEPTIONIST)1999 (Due) 06 ([employer] - Provider: Ladi Kaba, DIRECTOR FIXED INCOME)1999 (Due) phenazopyridine (Pyridium) tablet 200 mg 200 [...] Comment: BG 135)1100 (Not Given - Provider: Snoya Fine RN - Reason: Order parameters not [...] First dose on Sun11/09/23 at 1300, Mini-Bag Plus/ADD-[place] bag, Dosing of this medication varies based [...] this informatio n is protected by the [facility] Confidentiality of Alcohol and Drug Abuse Patient Records regulations: The Federal rules restrict any use of the information to criminally investigate or prosecute any alcohol or drug abuse patient.[facility] the event this information is protected by the Federal Confidentiality of Alcohol and Drug Abuse Patient Records regulations: The Federal rules restrict any use of the information to criminally investigate or prosecute any alcohol or drug abuse patient.[facility] FOR RECORDS PERTAINING TO PATIENTS WHO [...] BE BASED ON THE PRIMARY CLINICAL RECORDS. [employer] [facility]. provides no warranty or guarantee of the accuracy or completeness of information in this document.
[2024-11-09] MEDS: APIXABAN 5 MG TABLET PO ×2 (11:00→20:17)
[2024-11-09] MEDS: Polyethylene Glycol 3350 17 GM PACKET PO (11:01)
[2024-11-09] MEDS: Insulin Glargine-YFGN 100 UNIT/ML Pen SC (11:02)
[2024-11-09] MEDS: MELATONIN 3 MG TABLET 6 MG PO (20:15)
[2024-11-10 02:47] VITALS: BP 115/97; PULSE 61; RESP 20; TEMP 36.7; O2SAT 100
[2024-11-10 04:20] VITALS: BMI 36.6
[2024-11-10 06:13] LABS: Hematocrit 36.0 % (37-47); Hemoglobin 10.9 g/dL (12.0-15.0); Immature Granulocytes Count 0.050 X10^3/uL (0.0-0.0); Mean Corp Hgb Conc 30.3 g/dL (32-36); Mean Corpuscular Volume 87.4 fL (81-99); Mean Platelet Vol. 9.8 fl (6.2-12.0); NRBC Flagged by Analyzer 0 % (0-5); Platelet Count 257 K/mm3 (150-450); RBC Distribution Width CV 16.8 % (11.6-14.6); RBC Distribution Width SD 53.1 fl (35.1-43.9); Red Blood Count 4.12 M/mm3 (4.2-5.4); White Blood Count 10.7 K/mm3 (4.4-11.0)
[2024-11-10 06:51] LABS: Anion Gap 17 (5-15); BUN 37 mg/dL (4-19); BUN/Creat Ratio 23.8 RATIO (10-20); Calcium,Total 9.8 mg/dL (7.6-11.0); Carbon Dioxide 24.5 mmol/L (21.0-32.0); Chloride 99 mmol/L (98-108); Cholesterol 156 mg/dL (<=200); Estimated Creatinine Clearance 36.95 ml/min (50-250); Glucose 116 mg/dL (70-99); Low Density Lipoprotein Calc. 80 mg/dL; Potassium 3.6 mmol/L (3.3-5.1); Triglycerides 90 mg/dL; Very Low Density Lipoprotein 18 mg/dL (5-40); cholesterol:hdl ratio screen 2.69
[2024-11-10 08:40] VITALS: BP 119/81; PULSE 47; RESP 18; TEMP 36.6; O2SAT 98
[2024-11-10] MEDS: Potassium Chloride Oral Tablet 20 MEQ PO (08:45)
[2024-11-10] MEDS: APIXABAN 5 MG TABLET PO ×2 (08:46→22:52)
[2024-11-10] MEDS: Insulin Glargine-YFGN 100 UNIT/ML Pen SC (08:46)
[2024-11-10 09:12] LABS: Magnesium 2.1 mg/dL (1.5-2.2)
--- NOTE | 2024-11-10 11:19 | CASEMGMT ---
Addendum entered by Bethany Colbert 11/10/24 11:29: Precert not needed for pt to return. Bethany Colbert DC Planning Asst. Original Note: Discharge Planning Updates sent to [facility]. Asked if precert is needed and if she can return while it's pending. Awaiting response. Bethany Colbert DC Planning Asst.
--- NOTE | 2024-11-10 11:48 | CASEMGMT ---
UZMA GABRIEL in to discuss discharge planning. Patient states she wishes to return to [facility] at discharge. Patient had no further questions or concerns. UZMA GABRIEL udpated discharge planning supervisor to send referral to [facility]. CM will continue to follow this patient and plan for a safe discharge.
[2024-11-10 14:47] VITALS: BP 93/79; PULSE 70; RESP 18; TEMP 36.5; O2SAT 98
--- NOTE | 2024-11-10 15:24 | CHAPLAIN ---
Type of Pastoral Visit _x__ Initial Visit ___ Follow-up Visit ___ On-call Visit ___ General Patient Visit ___ Spiritual Assessment ___ Family Conference ___ Bereavement ___ Rapid Response ___ Code Blue ___ Other (describe below) Pastoral Care Referral From _x__ Patient ___ Family ___ Nurse ___ Physician ___ Speech And Language Tutor ___ Beverage Host ___ Other (describe below) Sacrament/Intervention _x__ Active listening ___ Anointing ___ Shinto ___ Bereavement ___ Communion ___ Rachel exploration ___ _x__ Life review _x__ Prayer ___ Reconciliation ___ Sacrament of Sick _x__ Supportive presence ___ Wedding ___ Other (describe below) Pastoral Comments patient expresses gladness to see this transportation inspector and asks if he can sit awhile and hear some of her family concerns; transportation inspector sits and patient speaks of the deaths of many of her family members; pt shares that one son is in correction and her goal is to see him one more time to hug him before I ; there are other family dynamics that bother her as well; pt expresses some questions about rachel; pt asks for prayer and gives thanks for the time and support given
--- NOTE | 2024-11-10 19:15 | PCM.PN.HOSP ---
Reason for Visit Chief Complaint: Lower extremity swelling and shortness of breath Subjective Subjective Patient was seen and examined today, she is on room air at this time. Patient does not complain of any chest pain or shortness of breath at rest Objective Data Objective Data Vital Signs: Vital Signs Temp Pulse Resp BP Pulse Ox O2 Del Method 97.7 F L 70 18 93/79 98 Room Air 11/10/24 14:47 11/10/24 14:47 11/10/24 14:47 11/10/24 14:47 11/10/24 14:47 11/10/24 14:47 Oxygen Delivery Method Room Air Weight: 103 kg Body Mass Index (BMI) 36.6 Intake & Output: Intake and Output for Last 24 Hours 11/08/24 11/09/24 11/10/24 23:59 23:59 23:59 Intake Total 480 / 780 1170 / 1170 Output Total 1150 / 1550 850 / 850 Balance -670 / -770 320 / 320 Lab / Micro Data 11/10/24 05:16 11/10/24 05:16 Labs: Laboratory Results - last 24 hr 11/09/24 20:14: POC Glucose 126 H 11/10/24 05:16: WBC 10.7, RBC 4.12 L, Hgb 10.9 L, Hct 36.0 L, MCV 87.4, MCH 26.5 L, MCHC 30.3 L, RDW Std Deviation 53.1 H, RDW Coeff of Josiah 16.8 H, Plt Count 257, MPV 9.8, Immature Gran % (Auto) 0.500, Neut % (Auto) 64.5, Lymph % (Auto) 27.0, Refugio % (Auto) 6.3, Eos % (Auto) 0.8, Baso % (Auto) 0.9, Absolute Neuts (auto) 6.9, Absolute Lymphs (auto) 2.88, Nucleated RBC % 0, Sodium 141, Potassium 3.6, Chloride 99, Carbon Dioxide 24.5, Anion Gap 17 H, BUN 37 H, Creatinine 1.57 H, Estim Creat Clear Calc 36.95 L, Est GFR (MDRD) Non-Af 34 L, BUN/Creatinine Ratio 23.8 H, Glucose 116 H, Calcium 9.8, Triglycerides 90, Cholesterol 156, LDL Cholesterol, Calc 80, VLDL Cholesterol 18, HDL Cholesterol 58, Cholesterol/HDL Ratio 2.69 11/10/24 05:55: Magnesium 2.1 11/10/24 06:11: POC Glucose 116 H 11/10/24 11:31: POC Glucose 181 H Physical Exam Const alert and no apparent distress General Appearance: cooperative, well kempt and well developed Orientation / Consciousness: awake, oriented to person and oriented to place HEENT normocephalic, head/scalp atraumatic and moist oral mucous membranes Eyes PERRL, EOMs intact bilaterally and conjunctivae normal Neck supple, no JVD, thyroid normal and no carotid bruits General: trachea midline Resp normal respiratory effort, no retractions, no use of accessory muscles and clear to auscultation bilaterally Auscultation: Negative for rales, rhonchi or wheezes Cardio S1 normal heart sound, S2 normal heart sound, no rub and no gallops Cardio Narrative: Heart rate and rhythm is irregular GI normal to inspection, nondistended, normoactive bowel sounds, soft to palpation, non-tender and non-distended Extremity no clubbing, cyanosis or edema Skin no rashes or lesions noted General Skin Exam: no breakdown Neuro CN's II-XII intact bilaterally, moves all extremities, no focal motor deficits and no sensory deficits noted Sensorium / Orientation: awake, alert, oriented to person and oriented to place Speech: speech normal Psych affect normal Assessment & Plan Assessment/Plan (1) CHF exacerbation: PLAN: Plan 1. Acute exacerbation of chronic congestive heart failure with reduced ejection fraction-patient will remain on IV Lasix, labs will be monitored #2 acute kidney injury-patient's creatinine today was 1.57-it is unchanged from yesterday's creatinine. BMP will be repeated tomorrow #3 chronic atrial fibrillation-patient will remain on her current medications including anticoagulation with Eliquis and rate limiting agents #4 type 2 diabetes-blood sugars will be monitored, sliding scale insulin be administered as needed Total clinical time spent by myself addressing the patient's medical issues, reviewing all of her data, and collaborating with patient's care team: 35-minute Charges/Coding Visit Charges Inpatient E&M: 68794 Subs Hosp L2
[2024-11-10] MEDS: 0.9% Saline Lock 10 ML Syringe IV (19:26)
[2024-11-10 22:00] VITALS: BP 109/87; PULSE 93; RESP 20; TEMP 36.7; O2SAT 94
[2024-11-10] MEDS: MELATONIN 3 MG TABLET 6 MG PO (22:47)
[2024-11-11 05:00] VITALS: BP 108/73; PULSE 87; RESP 20; TEMP 36.8; O2SAT 96
[2024-11-11 05:21] VITALS: BMI 36.8
[2024-11-11 06:10] LABS: Anion Gap 18 (5-15); BUN 46 mg/dL (4-19); BUN/Creat Ratio 21.8 RATIO (10-20); Calcium,Total 9.3 mg/dL (7.6-11.0); Carbon Dioxide 22.8 mmol/L (21.0-32.0); Chloride 99 mmol/L (98-108); Estimated Creatinine Clearance 27.55 ml/min (50-250); Glucose 91 mg/dL (70-99); Potassium 4.5 mmol/L (3.3-5.1)
[2024-11-11 09:08] VITALS: BP 106/74; PULSE 133; RESP 20; TEMP 36.4; O2SAT 94
[2024-11-11] MEDS: Potassium Chloride Oral Tablet 20 MEQ PO (09:14)
[2024-11-11] MEDS: APIXABAN 5 MG TABLET PO ×2 (09:15→21:55)
[2024-11-11] MEDS: Polyethylene Glycol 3350 17 GM PACKET PO (09:16)
--- NOTE | 2024-11-11 09:50 | RAD_ITS ---
PROCEDURE: CHEST 1 VIEW (PORTABLE) 11/11/2024 REASON FOR EXAM: CHF TECHNIQUE: Frontal view of the chest. COMPARISON: Prior study dated November 09, 2024. FINDINGS: Hardware: EKG electrodes are seen. Heart: Cardiomegaly. Lungs: Residual vascular congestion and CHF although there has been mild improvement. Mild degree of persistent bibasilar atelectasis. Bones: Degenerative changes are identified within the thoracic spine. Other: RAD/Chest 1 View (Portable) IMPRESSION: Residual CHF although there has been improvement. Bibasilar atelectasis. Reading Location: [id number]
--- NOTE | 2024-11-11 11:48 | US_ITS ---
PROCEDURE: KIDNEY AND BLADDER, 11/11/2024 REASON FOR EXAM: SANDRA TECHNIQUE: Grayscale and color doppler ultrasound of the kidneys and bladder was performed. COMPARISON: None FINDINGS: Exam limited by reported patient condition as well as soft tissue attenuation and shadowing bowel gas. Right kidney: 9.0 cm in length. 10 x 8 x 7 mm probable cyst. No visualized calculus or hydronephrosis. Left kidney: 8.0 cm in length. No visualized mass, calculus, or hydronephrosis. Bladder: Underdistended and suboptimally evaluated; grossly unremarkable. Estimated volume 14 mL. Other: None. US/Kidney and Bladder IMPRESSION: 1. No hydronephrosis. 2. Additional description as above. Reading Location: [id number]
--- NOTE | 2024-11-11 11:53 | CON.PCM.RE_ITS ---
Assessment & Plan Assessment/Plan (1) Acute renal insufficiency: (2) Chronic HFrEF (heart failure with reduced ejection fraction): PLAN: Plan This is a pleasant 78-year-old female with past medical history significant for heart failure with reduced EF (echo from August 2024: EF 40 to 45%, moderate mitral valve insufficiency, moderate tricuspid valve insufficiency with severe aortic valve stenosis), diabetes mellitus type 2, COPD, A-fib on Eliquis, depression anxiety who was admitted to the hospital November 09 for acute exacerbation of CHF with reduced EF. Chest x-ray showing edema versus consolidation. BNP 56,000. With IV Lasix breathing and edema have both improved. Serum creatinine was 1.5 on admission, serum creatinine 1.5 yesterday and today her creatinine is up to 2.11. IV Lasix has been stopped. Likely SANDRA secondary to overdiuresis. Baseline creatinine has been ranging around 1 to 1.2 mg/dL but we may need to allow for higher baseline serum creatinine to achieve euvolemia. We will obtain UA and urine protein creatinine ratio also obtain renal ultrasound. No acute indication for renal placement therapy; potassium and bicarb acceptable, patient is nonoliguric and volume status appears to be compensated. Further orders forthcoming as hospitalization evolves, thank you for allowing us to participate in the care of Ms. Dupree. Assessment and plan reviewed with Dr. Kee. HPI Consult Data Date of Consult: 11/11/24 HPI Narrative HPI Narrative: DARYN DUPREE, is a 78 F with past medical history significant for congestive heart failure with reduced EF, diabetes mellitus type 2, A-fib on Eliquis, GERD, depression and anxiety, COPD who presented to the emergency room on November 09 with complaints of worsening lower extremity swelling and difficulty breathing. Workup in the emergency room included chest x-ray showing possible edema, BNP 56,000, patient was admitted for further evaluation and treatment. Nephrology consulted in view of elevated creatinine. Patient reports she has not been followed routinely by nephrology. She does states she saw heavy mobile equipment operator in [place] some years back after she developed cellulitis with kidney injury. She has never required any hemodialysis. Baseline creatinine ranging around 1 to 1.2 mg/dL. On admission creatinine 1.5 and today her creatinine is 2.11. Patient reports breathing improved, edema to lower legs also improved. She is currently on room air. She denies any nausea, vomiting or diarrhea. FORMERLY [facility] Medical History Post-menopausal History of ulceration Gastric reflux History of stress test History of irregular heartbeat Aortic stenosis Lives in fdc Wears glasses Wears partial dentures Marijuana use Discoloration of skin Open wound Insulin dependent diabetes mellitus Uses wheelchair Arthritis History of renal disease Low iron High cholesterol Back pain Dietary restriction History of GI bleed Non-smoker Chronic cough History of edema History of echocardiogram Cardiology follow-up encounter History of CHF (congestive heart failure) History of atrial fibrillation Palpitations Magnesium deficiency Diarrhea Asthma Vertebral osteomyelitis Discitis of thoracic region Intractable back pain Syndrome of inappropriate secretion of antidiuretic hormone Age-related incipient cataract of both eyes Iron deficiency anemia Generalized muscle weakness Morbid obesity with BMI of 40.0-44.9, adult Vitamin D deficiency Venous stasis ulcer with varicose veins Renal lesion Primary osteoarthritis of both knees History of colonic polyps Neurodermatitis Lymphedema of leg Lumbar facet arthropathy Benign essential hypertension Anemia Anxiety Depression CHF (congestive heart failure) A-fib COPD (chronic obstructive pulmonary disease) Kidney disease Diabetes Hyperlipidemia History of ESBL E. coli infection History of infection with vancomycin resistant Enterococcus (VRE) Altered mental status Home Medications ?Medication ?Instructions ?Recorded ?Last Taken ?Type cholecalciferol (vitamin D3) 25 25 mcg PO DAILY Unknown History mcg (1,000 unit) capsule insulin lispro 100 unit/mL See Protocol subcut .TIDCM& HS 12/31/23 Unknown History subcutaneous pen (Humalog KwikPen (U-100) Insulin) nystatin 100,000 unit/gram topical 1 applic topical BI D PRN skin 12/31/23 Unknown History powder irritation potassium chloride 10 mEq 20 meq PO DAILY 12/31/23 Unk nown History capsule,extended release melatonin 3 mg tablet 6 mg (2 x 3 mg) PO QHS #0 ta bs 01/08/24 Unknown Rx buspirone 5 mg tablet 5 mg PO BID 03/28/24 Unknown History dapagliflozin propanediol 5 mg 5 mg PO DAILY 03/28/24 Unknown History tablet (Farxiga) ferrous sulfate 325 mg (65 mg 325 mg PO QDAY 04/28/24 Unknown History iron) tablet furosemide 20 mg tablet 40 mg PO QAM 04/28/24 Unknow n History pantoprazole 40 mg tablet,delayed 40 mg PO QDAY #90 ta bs 04/28/24 Unknown Rx release cyclobenzaprine 10 mg tablet 5 mg PO TID 06/10/24 Unkn own History acetaminophen 325 mg tablet 650 mg PO Q4H PRN Pain 1- Or 06/30/24 Unknown History Fever>100.7 albuterol sulfate 90 mcg/actuation 2 inh inhalation Q6 H PRN shortness 06/30/24 Unknown History aerosol inhaler of breath or wheezing guaifenesin 400 mg tablet 400 mg PO Q4H PRN cough 06/08 08/01 Unknown History insulin glargine 100 unit/mL (3 8 unit subcut DAILY 07/01/24 History mL) subcutaneous pen (Lantus Solostar U-100 Insulin) polyethylene glycol 3350 17 17 g PO QODAY 06/30/24 Unk nown History gram/dose oral powder (Miralax) apixaban 5 mg tablet (Eliquis) 5 mg PO BID #90 tabs 10/23/24 Rx carvedilol 3.125 mg tablet 3.125 mg PO BID #180 tabs 0 07/31/24 Unknown Rx docusate sodium 100 mg capsule 100 mg PO BID 10/09/24 Unknown History venlafaxine 150 mg 150 mg PO QDAY 10/09/24 Unkn own History capsule,extended release 24 hr benzonatate 100 mg capsule 100 mg PO TID PRN cough Unknown History magnesium hydroxide 400 mg/5 mL 30 ml PO DAILY PRN con stipation 10/21/24 Unknown History oral suspension (Milk of Magnesia) Allergy/AdvReac Type Severity Reaction Status Date / Time No Known Allergies Allergy Verified 11/09/24 04:29 Family History Mother Alzheimer dementia Breast cancer Heart disease Brother Cystic fibrosis Surgical History History of colonoscopy S/P laminectomy History of tubal ligation Hx of cholecystectomy H/O section Social History Smoking Status: Never smoker alcohol intake: never ROS ROS Narrative As in HPI Physical Exam Narrative Alert and oriented x 3, no apparent distress S1, S2, RRR Breath sounds clear. No wheezes, rhonchi or rales noted. On room air. Abdomen soft, nontender, positive bowel sounds No pitting edema to bilateral lower legs or feet Lab / Micro Data 11/10/24 05:16 11/11/24 05:16 Labs: Laboratory Results - last 24 hr 11/10/24 16:43: POC Glucose 114 H 11/10/24 22:45: POC Glucose 88 11/11/24 05:16: Sodium 140, Potassium 4.5, Chloride 99, Carbon Dioxide 22.8, A nion Gap 18 H, BUN 46 H, Creatinine 2.11 H, Estim Creat Clear Calc 27.55 L, Est GFR (MDRD) Non-Af 24 L, BUN/Creatinine Ratio 21.8 H, Glucose 91, Calcium 9.3 11/11/24 07:01: POC Glucose 68 L Imaging Radiology Impression Chest X-Ray 11/11/24 09:50 IMPRESSION: Residual CHF although there has been improvement. Bibasilar atelectasis. Reading Location: [id number]
[2024-11-11 12:21] LABS: Mucous, Urine 0 SEEN /hpf (<or=2+); Red Blood Cells-Urine 0 SEEN /hpf (0-5); Squamous Epithelial Cells - UA 0 SEEN /hpf (5-10)
[2024-11-11 12:22] LABS: Color, Urine Yellow (Yellow); Glucose, Dipstick 50 mg/dl (Normal); Ketone-Dipstick Negative (Negative); Leukocyte Esterase-Dipstick 500 /ul (Negative); Nitrite-Dipstick Negative (Negative); Occult Blood-Urine 25 /ul (Negative); Protein-Dipstick 100 mg/dl (Negative); Specific Gravity, Urine 1.025 (1.002-1.030)
[2024-11-11 12:24] LABS: Urine Bilirubin Dipstick 1 mg/dL (Negative)
[2024-11-11 14:57] VITALS: BP 98/62; PULSE 116; RESP 18; TEMP 36.4; O2SAT 94
--- NOTE | 2024-11-11 16:10 | PCM.PN.HOSP ---
Reason for Visit Chief Complaint: Lower extremity swelling and shortness of breath Subjective Subjective Patient was seen and examined today, she is currently on room air, her creatinine sukhwinder to 2.11 today, I have elected to stop her Lasix and repeat her BMP in the morning. I did have nephrology see the patient today, her repeat chest x-ray today showed residual CHF with improvement overall. Objective Data Objective Data Vital Signs: Vital Signs Temp Pulse Resp BP Pulse Ox O2 Del Method 97.5 F L 116 H 18 98/62 94 Room Air 11/11/24 14:57 11/11/24 14:57 11/11/24 14:57 11/11/24 14:57 11/11/24 14:57 11/11/24 14:57 Oxygen Delivery Method Room Air Weight: 103.4 kg Body Mass Index (BMI) 36.8 Intake & Output: Intake and Output for Last 24 Hours 11/09/24 11/10/24 11/11/24 23:59 23:59 23:59 Intake Total 480 / 780 1170 / 1170 1090 / 1090 Output Total 1150 / 1550 850 / 850 720 / 720 Balance -670 / -770 320 / 320 370 / 370 Lab / Micro Data 11/13/24 06:15 11/13/24 06:15 Labs: Laboratory Results - last 24 hr 11/10/24 16:43: POC Glucose 114 H 11/10/24 22:45: POC Glucose 88 11/11/24 05:16: Sodium 140, Potassium 4.5, Chloride 99, Carbon Dioxide 22.8, Anion Gap 18 H, BUN 46 H, Creatinine 2.11 H, Estim Creat Clear Calc 27.55 L, Est GFR (MDRD) Non-Af 24 L, BUN/Creatinine Ratio 21.8 H, Glucose 91, Calcium 9.3 11/11/24 07:01: POC Glucose 68 L 11/11/24 11:58: POC Glucose 79 11/11/24 12:13: Urine Color Yellow, Urine Clarity Cloudy, Urine pH 5.0, Ur Specific [place] 1.025, Urine Protein 100 H, Urine Glucose (UA) 50 H, Urine Ketones Negative, Urine Occult Blood 25 H, Urine Nitrite Negative, Urine Bilirubin 1 H, Urine Urobilinogen 1 H, Ur Leukocyte Esterase 500 H, Urine RBC 0 SEEN, Urine WBC 25-50 SEEN, Ur Squamous Epith Cells 0 SEEN, Urine Bacteria 3+, Urine Mucus 0 SEEN Radiography Diagnostic Testing: Radiology Impression Chest X-Ray 11/11/24 09:50 IMPRESSION: Residual CHF although there has been improvement. Bibasilar atelectasis. Reading Location: [facility] Physical Exam Narrative alert and no apparent distress General Appearance: cooperative, well kempt and well developed Orientation / Consciousness: awake, oriented to person and oriented to place HEENT normocephalic, head/scalp atraumatic and moist oral mucous membranes Eyes PERRL, EOMs intact bilaterally and conjunctivae normal Neck supple, no JVD, thyroid normal and no carotid bruits General: trachea midline Resp normal respiratory effort, no retractions, no use of accessory muscles and clear to auscultation bilaterally Auscultation: Negative for rales, rhonchi or wheezes Cardio S1 normal heart sound, S2 normal heart sound, no rub and no gallops Cardio Narrative: Heart rate and rhythm is irregular GI normal to inspection, nondistended, normoactive bowel sounds, soft to palpation, non-tender and non-distended Extremity no clubbing, cyanosis or edema Skin no rashes or lesions noted General Skin Exam: no breakdown Neuro CN's II-XII intact bilaterally, moves all extremities, no focal motor deficits and no sensory deficits noted Sensorium / Orientation: awake, alert, oriented to person and oriented to place Speech: speech normal Psych affect normal Assessment & Plan Assessment/Plan (1) CHF exacerbation: PLAN: Plan 1. Acute exacerbation of chronic congestive heart failure with reduced ejection fraction-patient is currently off Lasix #2 acute kidney injury-patient's creatinine today was 2.11, BMP will be monitored #3 chronic atrial fibrillation-patient will remain on her current medications including anticoagulation with Eliquis and rate limiting agents #4 type 2 diabetes-blood sugars will be monitored, sliding scale insulin be administered as needed Total clinical time spent by myself addressing the patient's medical issues, reviewing all of her data, and collaborating with patient's care team: 35-minute Charges/Coding Visit Charges Inpatient E&M: 21901 Subs Hosp L2
[2024-11-11] MEDS: Albuterol 2.5 MG/3 ML VIAL.NEB. INHALATION (17:44)
[2024-11-11 17:47] VITALS: RESP 18
[2024-11-11 19:40] VITALS: BP 89/59; PULSE 88; RESP 20; TEMP 36.6; O2SAT 96
[2024-11-11] MEDS: 0.9% Saline Lock 10 ML Syringe IV (19:51)
[2024-11-11 21:50] VITALS: BP 101/77; PULSE 101; RESP 19; TEMP 36.5; O2SAT 93
[2024-11-11] MEDS: MELATONIN 3 MG TABLET 6 MG PO (21:55)
[2024-11-11 22:44] LABS: Creatinine, Urine (random) 173.00 mg/dL (28.00-217.00); Protein, Urine (Random) 89.5 mg/dL (0.0-12.0); Protein:Creat Ratio 517 mg/g CRE (0-200)
[2024-11-12] MEDS: hydrOXYzine PAM 25 MG Capsule PO (00:11)
[2024-11-12 05:00] VITALS: BP 100/69; PULSE 91; RESP 20; TEMP 36.6; O2SAT 94
[2024-11-12 06:00] VITALS: BMI 36.6
[2024-11-12 06:28] LABS: Anion Gap 25 (5-15); BUN 57 mg/dL (4-19); BUN/Creat Ratio 18.9 RATIO (10-20); Calcium,Total 9.4 mg/dL (7.6-11.0); Carbon Dioxide 17.0 mmol/L (21.0-32.0); Chloride 94 mmol/L (98-108); Estimated Creatinine Clearance 19.32 ml/min (50-250); Glucose 104 mg/dL (70-99)
[2024-11-12 06:29] LABS: Potassium 6.3 mmol/L (3.3-5.1)
[2024-11-12 09:17] LABS: Anion Gap 27 (5-15); BUN 55 mg/dL (4-19); BUN/Creat Ratio 18.0 RATIO (10-20); Calcium,Total 9.3 mg/dL (7.6-11.0); Carbon Dioxide 15.5 mmol/L (21.0-32.0); Chloride 93 mmol/L (98-108); Estimated Creatinine Clearance 19.00 ml/min (50-250); Glucose 108 mg/dL (70-99); Potassium 6.3 mmol/L (3.3-5.1)
[2024-11-12] MEDS: APIXABAN 5 MG TABLET PO ×2 (09:28→20:51)
[2024-11-12] MEDS: Insulin Glargine-YFGN 100 UNIT/ML Pen SC (09:29)
[2024-11-12 10:00] VITALS: BP 116/103; PULSE 78; RESP 20; TEMP 35.6; O2SAT 94
--- NOTE | 2024-11-12 11:00 | PN.RENAL_ITS ---
Subjective Subjective Follow-up on acute kidney injury. Patient is somnolent, easily arousable. Potassium is high, she has received potassium supplement on a daily basis. Patient states that she has gotten sleeping pill last night and feels sleepy today. Objective Data Objective Data Vital Signs: Vital Signs Temp Pulse Resp BP Pulse Ox O2 Del Method 96.1 F L 78 20 H 116/103 H 94 Room Air 11/12/24 10:00 11/12/24 10:00 11/12/24 10:00 11/12/24 10:00 11/12/24 10:00 11/12/24 10:00 Oxygen Delivery Method Room Air Weight: 102.8 kg Body Mass Index (BMI) 36.6 Intake & Output: Intake and Output for Last 24 Hours 11/10/24 11/11/24 11/12/24 23:59 23:59 23:59 Intake Total 1170 / 1170 1570 / 1570 240 / 240 Output Total 850 / 850 770 / 770 Balance 320 / 320 800 / 800 240 / 240 Lab / Micro Data Attestation: I reviewed the patient's lab results. 11/10/24 05:16 11/12/24 07:40 Labs: Laboratory Results - last 24 hr 11/11/24 11:58: POC Glucose 79 11/11/24 12:13: Urine Color Yellow, Urine Clarity Cloudy, Urine pH 5.0, Ur Specific [place] 1.025, Urine Protein 100 H, Urine Glucose (UA) 50 H, Urine Ketones Negative, Urine Occult Blood 25 H, Urine Nitrite Negative, Urine Bilirubin 1 H, Urine Urobilinogen 1 H, Ur Leukocyte Esterase 500 H, Urine RBC 0 SEEN, Urine WBC 25-50 SEEN, Ur Squamous Epith Cells 0 SEEN, Urine Bacteria 3+, Urine Mucus 0 SEEN, U Random Total Protein 89.5 H, Urine Creatinine 173.00, P rotein/Creatinin Ratio 517 H 11/11/24 16:37: POC Glucose 111 H 11/11/24 19:35: POC Glucose 93 11/11/24 21:49: POC Glucose 85 11/12/24 05:44: Sodium 136, Potassium 6.3 H*, Chloride 94 L, Carbon Dioxide 17.0 L, Anion Gap 25 H, BUN 57 H, Creatinine 3.00 H, Estim Creat Clear Calc 19.32 L, Est GFR (MDRD) Non-Af 16 L, BUN/Creatinine Ratio 18.9, Glucose 104 H, Calcium 9.4 11/12/24 06:34: POC Glucose 110 H 11/12/24 07:40: Sodium 135, Potassium 6.3 H*, Chloride 93 L, Carbon Dioxide 15.5 L, Anion Gap 27 H, BUN 55 H, Creatinine 3.05 H, Estim Creat Clear Calc 19.00 L, Est GFR (MDRD) Non-Af 15 L, BUN/Creatinine Ratio 18.0, Glucose 108 H, Calcium 9.3 Radiography Diagnostic Testing: Radiology Impression Renal Ultrasound 11/11/24 11:48 IMPRESSION: 1. No hydronephrosis. 2. Additional description as above. Reading Location: [id number] Physical Exam Const Orientation / Consciousness: oriented to person, oriented to place and oriented to time Nutritional Appearance: obese HEENT normocephalic Head and Scalp: atraumatic Resp no use of accessory muscles Auscultation: diminished lung sounds Cardio regular rate and no rub GI non-tender and non-distended Auscultation: normoactive bowel sounds Extremity Extremity Narrative: Both feet are cyanotic, cool to touch Neuro Sensorium / Orientation: lethargic Psych cooperative Assessment & Plan Assessment/Plan (1) Acute renal insufficiency: PLAN: Acute kidney injury accompanied by metabolic acidosis and as a result of hyperkalemia. Also patient has been on potassium supplement. Calculate fractional excretion of sodium Patient has received Kayexalate Stop potassium supplement Start IV bicarb (2) Hyperkalemia: (3) Acidosis, metabolic:
[2024-11-12] MEDS: Sodium Bicarbonate 150 MEQ in Dextrose 5%-Water (1000mL Bag) 1,000 ML 100 MEQ IV (15:14)
[2024-11-12] MEDS: 0.9% Saline Lock 10 ML Syringe IV (15:14)
[2024-11-12 15:36] VITALS: BP 91/59; PULSE 81; RESP 18; TEMP 36.4; O2SAT 92
[2024-11-12 16:07] LABS: Anion Gap 23 (5-15); BUN 61 mg/dL (4-19); BUN/Creat Ratio 19.1 RATIO (10-20); Calcium,Total 8.6 mg/dL (7.6-11.0); Carbon Dioxide 19.6 mmol/L (21.0-32.0); Chloride 95 mmol/L (98-108); Estimated Creatinine Clearance 18.22 ml/min (50-250); Glucose 163 mg/dL (70-99); Potassium 5.1 mmol/L (3.3-5.1)
--- NOTE | 2024-11-12 17:44 | PN.HOSP_ITS ---
Reason for Visit Chief Complaint: Lower extremity swelling and shortness of breath Subjective Subjective Patient was seen and examined today, she appeared lethargic today and was not able to carry on a full conversation with this examiner. I talked with nephrology about her care, nephrology recommended placing her on a bicarb drip, due to poor IV access, a midline catheter had to be inserted. According to the patient's correction paperwork, she is a DNR CC arrest, I confirmed this with the patient's son by phone today and changed the patient's CODE STATUS. Patient's potassium was high this morning, I gave her some Kayexalate and her repeat potassium this afternoon was 5.1. Objective Data Objective Data Vital Signs: Vital Signs Temp Pulse Resp BP Pulse Ox O2 Del Method 97.5 F L 81 18 91/59 L 92 Room Air 11/12/24 15:36 11/12/24 15:36 11/12/24 15:36 11/12/24 15:36 11/12/24 15:36 11/12/24 15:40 Oxygen Delivery Method Room Air Weight: 102.8 kg Body Mass Index (BMI) 36.6 Intake & Output: Intake and Output for Last 24 Hours 11/10/24 11/11/24 11/12/24 23:59 23:59 23:59 Intake Total 1170 / 1170 1570 / 1570 240 / 240 Output Total 850 / 850 770 / 770 0 / 0 Balance 320 / 320 800 / 800 240 / 240 Lab / Micro Data 11/13/24 06:15 11/13/24 06:15 Labs: Laboratory Results - last 24 hr 11/11/24 12:13: U Random Total Protein 89.5 H, Urine Creatinine 173.00, P rotein/Creatinin Ratio 517 H 11/11/24 19:35: POC Glucose 93 11/11/24 21:49: POC Glucose 85 11/12/24 05:44: Sodium 136, Potassium 6.3 H*, Chloride 94 L, Carbon Dioxide 17.0 L, Anion Gap 25 H, BUN 57 H, Creatinine 3.00 H, Estim Creat Clear Calc 19.32 L, Est GFR (MDRD) Non-Af 16 L, BUN/Creatinine Ratio 18.9, Glucose 104 H, Calcium 9.4 11/12/24 06:34: POC Glucose 110 H 11/12/24 07:40: Sodium 135, Potassium 6.3 H*, Chloride 93 L, Carbon Dioxide 15.5 L, Anion Gap 27 H, BUN 55 H, Creatinine 3.05 H, Estim Creat Clear Calc 19.00 L, Est GFR (MDRD) Non-Af 15 L, BUN/Creatinine Ratio 18.0, Glucose 108 H, Calcium 9.3 11/12/24 13:17: Sodium 137, Potassium 5.1, Chloride 95 L, Carbon Dioxide 19.6 L, Anion Gap 23 H, BUN 61 H, Creatinine 3.18 H, Estim Creat Clear Calc 18.22 L, Est GFR (MDRD) Non-Af 15 L, BUN/Creatinine Ratio 19.1, Glucose 163 H, Calcium 8.6 11/12/24 16:39: POC Glucose 171 H Radiography Diagnostic Testing: Radiology Impression Renal Ultrasound 11/11/24 11:48 IMPRESSION: 1. No hydronephrosis. 2. Additional description as above. Reading Location: [facility] Physical Exam Narrative alert and no apparent distress General Appearance: cooperative, well kempt and well developed Orientation / Consciousness: awake, oriented to person and oriented to place HEENT normocephalic, head/scalp atraumatic and moist oral mucous membranes Eyes PERRL, EOMs intact bilaterally and conjunctivae normal Neck supple, no JVD, thyroid normal and no carotid bruits General: trachea midline Resp normal respiratory effort, no retractions, no use of accessory muscles and clear to auscultation bilaterally Auscultation: Negative for rales, rhonchi or wheezes Cardio S1 normal heart sound, S2 normal heart sound, no rub and no gallops Cardio Narrative: Heart rate and rhythm is irregular GI normal to inspection, nondistended, normoactive bowel sounds, soft to palpation, non-tender and non-distended Extremity no clubbing, cyanosis or edema Skin no rashes or lesions noted General Skin Exam: no breakdown Neuro CN's II-XII intact bilaterally, moves all extremities, no focal motor deficits and no sensory deficits noted Sensorium / Orientation: awake, alert, oriented to person and oriented to place Speech: speech normal Psych affect normal Assessment & Plan Assessment/Plan (1) CHF exacerbation: PLAN: Plan 1. Acute exacerbation of chronic congestive heart failure with reduced ejection fraction-patient is currently off Lasix, midline will be placed today, patient will receive bicarb drip, nephrology is participating in her care #2 acute kidney injury-patient's creatinine today was 3.00, BMP will be monitored, nephrology participating in her care #3 chronic atrial fibrillation-patient will remain on her current medications including anticoagulation with Eliquis and rate limiting agents #4 type 2 diabetes-blood sugars will be monitored, sliding scale insulin be administered as needed Total clinical time spent by myself addressing the patient's medical issues, reviewing all of her data, and collaborating with patient's care team: 35-minute Charges/Coding Visit Charges Inpatient E&M: 54508 Subs Hosp L2
[2024-11-12 20:40] VITALS: BP 94/68; PULSE 89; RESP 18; TEMP 36.6; O2SAT 92
[2024-11-12] MEDS: MELATONIN 3 MG TABLET 6 MG PO (20:50)
[2024-11-13] VITALS (7 sets, daily range): BP systolic 95–141; BP diastolic 53–117; PULSE 89–100; RESP 16–20; TEMP 36.3–36.8; O2SAT 96–100; BMI 37.0
[2024-11-13] MEDS: Albuterol 2.5 MG/3 ML VIAL.NEB. INHALATION (01:42)
[2024-11-13] MEDS: Sodium Bicarbonate 150 MEQ in Dextrose 5%-Water (1000mL Bag) 1,000 ML 100 MEQ IV (02:24)
[2024-11-13 08:12] LABS: Hematocrit 33.3 % (37-47); Hemoglobin 10.4 g/dL (12.0-15.0); Immature Granulocytes Count 0.070 X10^3/uL (0.0-0.0); Mean Corp Hgb Conc 31.2 g/dL (32-36); Mean Corpuscular Volume 87.6 fL (81-99); Mean Platelet Vol. 10.1 fl (6.2-12.0); NRBC Flagged by Analyzer 0.2 % (0-5); Platelet Count 175 K/mm3 (150-450); RBC Distribution Width CV 18.0 % (11.6-14.6); RBC Distribution Width SD 53.2 fl (35.1-43.9); Red Blood Count 3.80 M/mm3 (4.2-5.4); White Blood Count 12.0 K/mm3 (4.4-11.0)
[2024-11-13 08:44] LABS: Anion Gap 20 (5-15); BUN 70 mg/dL (4-19); BUN/Creat Ratio 20.1 RATIO (10-20); Calcium,Total 7.9 mg/dL (7.6-11.0); Carbon Dioxide 22.7 mmol/L (21.0-32.0); Chloride 93 mmol/L (98-108); Estimated Creatinine Clearance 16.82 ml/min (50-250); Glucose 195 mg/dL (70-99); Potassium 4.6 mmol/L (3.3-5.1)
--- NOTE | 2024-11-13 09:20 | RAD_ITS ---
PROCEDURE: CHEST 1 VIEW (PORTABLE) 11/13/2024 REASON FOR EXAM: HYPOXIA TECHNIQUE: Frontal view of the chest. COMPARISON: Prior study dated November 11 2024. FINDINGS: Hardware: EKG electrodes are seen. Heart: Cardiomegaly. Lungs: Mild residual vascular congestion and CHF although there has been further improvement. Blunting of both costophrenic angles. Bones: The bones are unremarkable. Other: RAD/Chest 1 View (Portable) IMPRESSION: Cardiomegaly. Residual mild vascular congestion and CHF although there has been improvement. Reading Location: [id number]
--- NOTE | 2024-11-13 18:10 | PN.HOSP_ITS ---
Reason for Visit Chief Complaint: Lower extremity swelling and shortness of breath Subjective Subjective Patient was seen and examined today, she is alert and nods her head to questions. I talked briefly with nephrology today by phone, her midline catheter was pulled out early this morning by the patient and nephrology agrees it should be replaced and her bicarb drip should be continued. I also talked to the patient's son, I discussed the possible need for dialysis with him and he states that he would be in favor of dialysis until the patient is alert enough to make her own decisions. Objective Data Objective Data Vital Signs: Vital Signs Temp Pulse Resp BP Pulse Ox O2 Del Method O2 Flow Rate 97.6 F L 100 18 135/117 H 100 Nasal Cannula 2 11/13/24 17:15 11/13/24 17:15 11/13/24 17:15 11/13/24 17:15 11/13/24 17:15 11/13/24 17:15 11/13/24 17:15 Oxygen Flow Rate (L/min) 2 Oxygen Delivery Method Nasal Cannula Weight: 104.2 kg Body Mass Index (BMI) 37.0 Intake & Output: Intake and Output for Last 24 Hours 11/11/24 11/12/24 11/13/24 23:59 23:59 23:59 Intake Total 1570 / 1570 460 / 460 1654.58 / 1654.58 Output Total 770 / 770 0 / 0 Balance 800 / 800 460 / 460 1654.58 / 1654.58 Lab / Micro Data 11/13/24 06:15 11/13/24 06:15 Labs: Laboratory Results - last 24 hr 11/12/24 20:57: POC Glucose 185 H 11/13/24 05:51: POC Glucose 193 H 11/13/24 06:15: WBC 12.0 H, RBC 3.80 L, Hgb 10.4 L, Hct 33.3 L, MCV 87.6, MCH 27.4, MCHC 31.2 L, RDW Std Deviation 53.2 H, RDW Coeff of [place] 18.0 H, Plt Count 175, MPV 10.1, Immature Gran % (Auto) 0.600, Neut % (Auto) 76.6 H, Lymph % (Auto) 15.2 L, [place] % (Auto) 7.3, Eos % (Auto) 0.2, Baso % (Auto) 0.1, Absolute Neuts (auto) 9.2 H, Absolute Lymphs (auto) 1.83, Nucleated RBC % 0.2, Sodium 135, Potassium 4.6, Chloride 93 L, Carbon Dioxide 22.7, Anion Gap 20 H, BUN 70 H , Creatinine 3.47 H, Estim Creat Clear Calc 16.82 L, Est GFR (MDRD) Non-Af 13 L, BUN/Creatinine Ratio 20.1 H, Glucose 195 H, Calcium 7.9 11/13/24 11:43: POC Glucose 168 H 11/13/24 16:15: POC Glucose 174 H Radiography Diagnostic Testing: Radiology Impression Chest X-Ray 11/13/24 09:20 IMPRESSION: Cardiomegaly. Residual mild vascular congestion and CHF although there has been improvement. Reading Location: [facility] Physical Exam Narrative alert and no apparent distress General Appearance: cooperative, well kempt and well developed Orientation / Consciousness: awake, oriented to person and oriented to place HEENT normocephalic, head/scalp atraumatic and moist oral mucous membranes Eyes PERRL, EOMs intact bilaterally and conjunctivae normal Neck supple, no JVD, thyroid normal and no carotid bruits General: trachea midline Resp normal respiratory effort, no retractions, no use of accessory muscles and clear to auscultation bilaterally Auscultation: Negative for rales, rhonchi or wheezes Cardio S1 normal heart sound, S2 normal heart sound, no rub and no gallops Cardio Narrative: Heart rate and rhythm is irregular GI normal to inspection, nondistended, normoactive bowel sounds, soft to palpation, non-tender and non-distended Extremity no clubbing, cyanosis or edema Skin no rashes or lesions noted General Skin Exam: no breakdown Neuro CN's II-XII intact bilaterally, moves all extremities, no focal motor deficits and no sensory deficits noted Sensorium / Orientation: awake, alert, oriented to person and oriented to place Speech: speech normal Psych affect normal Assessment & Plan Assessment/Plan (1) CHF exacerbation: PLAN: Plan 1. Acute exacerbation of chronic congestive heart failure with reduced ejection fraction-patient is currently off Lasix, midline will be placed today, patient will receive bicarb drip, nephrology is participating in her care #2 acute kidney injury-patient's creatinine today was 3.47, BMP will be monitored, nephrology participating in her care, patient's potassium was normal today #3 chronic atrial fibrillation-patient will remain on her current medications including anticoagulation with Eliquis and rate limiting agents #4 type 2 diabetes-blood sugars will be monitored, sliding scale insulin be administered as needed #5 hyperkalemia-resolved at this time, BMP will be monitored Total clinical time spent by myself addressing the patient's medical issues, reviewing all of her data, and collaborating with patient's care team: 35-minute Charges/Coding Visit Charges Inpatient E&M: 13058 Subs Hosp L2
[2024-11-13] MEDS: APIXABAN 5 MG TABLET PO (22:45)
[2024-11-14] MEDS: Sodium Bicarbonate 150 MEQ in Dextrose 5%-Water (1000mL Bag) 1,000 ML 75 MEQ IV (00:12)
[2024-11-14 03:55] VITALS: BMI 37.5
[2024-11-14 04:00] VITALS: BP 107/85; PULSE 103; RESP 16; TEMP 37.1; O2SAT 98
[2024-11-14 07:36] LABS: Hematocrit 32.2 % (37-47); Hemoglobin 9.7 g/dL (12.0-15.0); Immature Granulocytes Count 0.060 X10^3/uL (0.0-0.0); Mean Corp Hgb Conc 30.1 g/dL (32-36); Mean Corpuscular Volume 89.4 fL (81-99); Mean Platelet Vol. 10.1 fl (6.2-12.0); NRBC Flagged by Analyzer 0 % (0-5); Platelet Count 129 K/mm3 (150-450); RBC Distribution Width CV 18.4 % (11.6-14.6); RBC Distribution Width SD 54.4 fl (35.1-43.9); Red Blood Count 3.60 M/mm3 (4.2-5.4); White Blood Count 8.9 K/mm3 (4.4-11.0)
--- NOTE | 2024-11-14 08:18 | CASEMGMT ---
Discharge Planning Updates sent to [facility]. Requested green sheet numbers. Bethany Colbert DC Planning Asst.
[2024-11-14 08:21] LABS: Albumin, Serum 3.2 g/dL (3.4-4.8); Alkaline Phosphatase 230 U/L (35-104); Anion Gap 20 (5-15); BUN 70 mg/dL (4-19); BUN/Creat Ratio 21.3 RATIO (10-20); Calcium,Total 7.8 mg/dL (7.6-11.0); Carbon Dioxide 23.9 mmol/L (21.0-32.0); Chloride 93 mmol/L (98-108); Estimated Creatinine Clearance 18.04 ml/min (50-250); Globulin 2.6 g/dL (2.2-4.2); Glucose 154 mg/dL (70-99); Potassium 3.6 mmol/L (3.3-5.1)
[2024-11-14 08:30] LABS: AST(SGOT) 1001 U/L (<=31); Alanine Aminotransfer ALT/SGPT 778 U/L (<=34)
[2024-11-14 09:21] LABS: Creatinine, Urine (random) 98.40 mg/dL (28.00-217.00)
[2024-11-14 09:45] VITALS: BP 99/72; PULSE 82; RESP 18; TEMP 36.3; O2SAT 100
[2024-11-14] MEDS: APIXABAN 5 MG TABLET PO ×2 (09:50→22:27)
--- NOTE | 2024-11-14 11:24 | PCM.PN.REN ---
Subjective Subjective Follow-up on acute kidney injury. Remains somnolent, but arousable and appropriate. Denies shortness of breath, on nasal cannula oxygen. Poor oral intake. Blood pressure is soft Objective Data Objective Data Vital Signs: Vital Signs Temp Pulse Resp BP Pulse Ox O2 Del Method O2 Flow Rate 97.4 F L 82 18 99/72 100 Nasal Cannula 2 11/14/24 09:45 11/14/24 09:45 11/14/24 09:45 11/14/24 09:45 11/14/24 09:45 11/14/24 09:45 11/14/24 09:45 Oxygen Flow Rate (L/min) 2 Oxygen Delivery Method Nasal Cannula Weight: 105.6 kg Body Mass Index (BMI) 37.5 Intake & Output: Intake and Output for Last 24 Hours 11/12/24 11/13/24 11/14/24 23:59 23:59 23:59 Intake Total 460 / 460 2263.33 / 2263.33 Output Total 0 / 0 120 / 120 Balance 460 / 460 2263.33 / 2263.33 -120 / -120 Lab / Micro Data Attestation: I reviewed the patient's lab results. 11/14/24 07:01 11/14/24 07:01 Labs: Laboratory Results - last 24 hr 11/13/24 11:43: POC Glucose 168 H 11/13/24 16:15: POC Glucose 174 H 11/13/24 22:31: POC Glucose 191 H 11/14/24 06:55: POC Glucose 162 H 11/14/24 07:01: WBC 8.9, RBC 3.60 L, Hgb 9.7 L, Hct 32.2 L, MCV 89.4, MCH 26.9 L, MCHC 30.1 L, RDW Std Deviation 54.4 H, RDW Coeff of Josiah 18.4 H, Plt Count 129 L, MPV 10.1, Immature Gran % (Auto) 0.700, Neut % (Auto) 70.8 H, Lymph % (Auto) 20.0, [place] % (Auto) 7.6, Eos % (Auto) 0.8, Baso % (Auto) 0.1, Absolute Neuts (auto) 6.3, Absolute Lymphs (auto) 1.79, Nucleated RBC % 0, Sodium 136, Potassium 3.6, Chloride 93 L, Carbon Dioxide 23.9, Anion Gap 20 H, BUN 70 H, Creatinine 3.26 H, Estim Creat Clear Calc 18.04 L, Est GFR (MDRD) Non-Af 14 L, BUN/Creatinine Ratio 21.3 H, Glucose 154 H, Calcium 7.8, Total Bilirubin 0.87, AST 1001 H, ALT 778 H, Alkaline Phosphatase 230 H, Total Protein 5.8 L, Albumin 3.2 L, Globulin 2.6, Albumin/Globulin Ratio 1.2 11/14/24 08:10: Ur Random Sodium < 20, Urine Creatinine 98.40 Physical Exam Narrative Oral mucosa is dry Const Orientation / Consciousness: oriented to person, oriented to place and lethargic Nutritional Appearance: obese HEENT normocephalic Head and Scalp: atraumatic Mouth: dry mucous membranes Neck no lymphadenopathy Resp no use of accessory muscles Auscultation: wheezes Cardio regular rate and no rub GI non-tender Auscultation: normoactive bowel sounds Skin General Skin Exam: petechiae Psych cooperative Memory / Cognition: cognition impaired Assessment & Plan Assessment/Plan (1) Hyperkalemia: PLAN: Better (2) Acidosis, metabolic: PLAN: Better (3) Acute renal insufficiency: PLAN: Acute renal failure with low fractional excretion of sodium in the setting of overdiuresis, heart failure, liver failure. Renal hypoperfusion. Patient is hypotensive, urine output is marginal. Nevertheless she started to make urine, and her creatinine started to improve. I am actually surprised to see such a good albumin, unless it has been given. Plan Continue with maintenance IV, switch from bicarb drip to normal saline IV albumin shall level drop No dialysis indicated, she is a poor candidate for dialysis as well PLAN: Plan Acute kidney injury
[2024-11-14] MEDS: 0.9% Normal Saline (1000mL) 1,000 ML 75 ML IV (12:06)
--- NOTE | 2024-11-14 12:55 | ST.MBS ---
Modified Barium Swallow Patient Information Study Date: 11/14/24 Study Time: 12:30 Direct Billable Minutes: 100 Total Minutes procedure & reportin Diagnosis: PNA J18.9 Referring Physician: Edmundo Monge Reason for Referral: Assess swallow function, assess risk for aspiration, and determine recommendations for least restrictive diet textures and compensatory strategies to improve safety of swallow. Medical History: The patient is a 78-year-old female with a history of heart failure with reduced ejection fraction, aortic stenosis, atrial fibrillation on Eliquis, COPD, type 2 diabetes, GERD, and depression/anxiety. She presented to the [facility] ED on 11/09/2024 with worsening lower extremity edema, weight gain, orthopnea, and increased shortness of breath. Although her facility increased her Lasix from 20 mg to 40 mg over the past three days, she reported no symptomatic improvement. She denied fever, chills, or changes in her chronic COPD-related cough. Vitals in the ED were stable: T 97.5?F, HR 102, BP 126/81, RR 22, and SpO2 98% on room air. Lab work showed a hemoglobin of 10.5 (stable), WBC within normal limits, and an elevated creatinine of 1.58 (baseline ~1.19). BNP was significantly elevated at 55,945. Chest x-ray indicated possible asymmetric pulmonary edema or right central consolidation. She was diagnosed with a heart failure exacerbation and received IV Lasix. Given her stable condition, admission was recommended with plans for outpatient follow-up at [facility] regarding aortic stenosis evaluation. Speech therapy was consulted for dysphagia evaluation due to concerns for aspiration. RN (Ariel) reported the patient was made NPO pending assessment with observed wheezing and worsening lung sounds after PO intake. The patient appeared drowsy and lethargic at the time of ST evaluation 11/15/2024. She was recommended NPO and re-evaluated today. Pt was more alert and [employer] recommended participation in MBSS to further assess swallow function and risk for aspiration given persistent throat clearing and audible wheezing. Current Diet Ordered: NPO Dentition: Edentulous and Upper Dentures Mental Status: Impaired (Confusion) Respiratory Status: Oxygenating on Room Air Penetration-Aspiration Scale Penetration-Aspiration Scale: OBJECTIVE ASSESSMENT OF SWALLOW FUNCTION (QUANTITATIVE ? PER TRIAL): PENETRATION / ASPIRATION SCALE (VELAZQUEZ): 1 = does not enter airway 2 = enters airway/above vocal folds/ejected 3 = enters airway/above vocal folds/not ejected 4 = enters airway/contacts vocal folds/ejected 5 = enters airway/contacts vocal folds/not ejected 6 = enters airway/below vocal folds/ejected 7 = enters airway/below vocal folds/not ejected despite effort 8 = enters airway/below vocal folds/no effort VIDEOFLOROSCOPIC SCALE SCORE (VELAZQUEZ): Grade I = aspiration of material that has penetrated into the laryngeal vestibule, intact cough reflex Grade II = aspiration < 10 % of the bolus, intact cough reflex Grade III = aspiration of < 10 % of the bolus, reduced cough reflex or aspiration of > 10 % of the bolus, intact cough reflex Grade IV = aspiration of > 10 % of the bolus, reduced cough reflex Penetration-Aspiration Scale Score Thin Liquid via teaspoon: Result: 1= does not enter airway Thin Liquid via teaspoon Trial 2: Result: 1= does not enter airway Thin Liquid via small single sip: cup: Result: 1= does not enter airway Thin Liquid via sequential sips: cup: Result: 2= enter airway/above vocal folds/ejected Comment: Esophageal retention - Trace retention in the UES w/ retrograde flow to the pyriform sinuses; otherwise, complete clearance. [place] Thick Liquid via small single sip: cup: Result: 1= does not enter airway Pudding via teaspoon: Result: 1= does not enter airway Comment: Esophageal screen - Moderate retention of ~50% of the bolus in the upper and middle esophagus. Thin Liquid via single sip: straw: Result: 2= enter airway/above vocal folds/ejected Comment: Esophageal screen - Liquid wash somewhat cleared pudding; however, retention of liquids in the lower esophagus w/ retrograde flow. 1/2 Cookie: Result: 1= does not enter airway Thin Liquid via single sip: straw Trial 2: Result: 2= enter airway/above vocal folds/ejected Comment: Esopahgeal screen - Liquid barium appeared to mostly clear; however, barium coated cookie appeared suspended throughout the esophagus. Two additional liquid washes were provided, which somewhat cleared cookie retention; however, significant esophageal retention of cookie remained despite total of 3 liquid washes. Oral Phase Labial Seal: Escape progressing to mid-chin Tongue Control During Bolus Hold: Posterior escape of less than half of bolus Bolus Preparation/Mastication: Disorganized chewing/mashing with solid pieces of bolus unchewed Bolus Transport/Lingual Motion: Repetitive/disorganized tongue motion (slowed) Oral Residue: Residue collection on oral structures Pharyngeal Phase Initiation of Pharyngeal Swallow: Bolus head at posterior laryngeal surgace of epiglottis Soft Palate Elevation: Trace column of contrast/air between soft palate and pharyngeal wall Laryngeal Elevation: Comp. Superior move thyroid cart w/comp. apprx arytenoid cart-epig pet Anterior Hyoid Excursion: Partial anterior movement Epiglottic Movement: Complete inversion Laryngeal Vestibule Closure at Height of Swallow: Incomplete; narrow column of air/contrast in laryngeal vestibule (trace laryngeal penetration of liquids during the swallow that fully ejected) Pharyngeal Stripping Wave: Present - diminished Pharyngoesophageal Segment Opening: Parital distension and partial duration; parital obstruction of flow Tongue Base Retraction: Narrow column of contrast between tongue base & post. pharyngeal wall Pharyngeal Residue: Collection of residue within or on pharyngeal structures Esophageal Phase Esophageal Clearance: Esophageal retention w/ retrograde flow through pharyngoesophageal seg Diagnosis/Impression Diagnosis: Mild-mod oropharyngeal dysphagia R13.12; Esophageal dysphagia R13.14 MBS Impressions: The oral phase is primarily marked by... -Decreased bolus control w/ premature posterior loss of <1/2 of some thin liquid trials to the pharynx prior to swallow onset. -Disorganized and slowed tongue motion for A-P transport. -Disorganized and incomplete mastication of 1/2 of a regular-textured cookie. The pharyngeal phase is primarily marked by... -Decreased pharyngeal motility noticeable w/ cookie w/ decreased TB retraction and pharyngeal stripping wave w/ mild pharyngeal residue. Liquid wash mostly cleared pharyngeal residue of cookie. -Decreased anterior hyoid excursion w/ trace laryngeal penetration that fully ejected. No aspiration. The esophageal phase is primarily marked by... -Small CP bar at the level of C4 w/ trace retention of liquids in the UES w/ retrograde flow to the pyriform sinuses. -Moderate retention of pudding in the upper and middle esophagus, which somewhat cleared w/ liquid wash. -Retention of cookie throughout the esophagus, which somewhat cleared w/ three liquid washes; however, significant esophageal remained despite liquid washes. Pt is at risk for reflux aspiration. Recommendations Diet: Thin Liquids (Clear Liquids) Comment: Medications crushed in applesauce Compensatory Strategies: Small Sips, Slow Rate and Sitting upright (During and 60min after po intake) Supervision: Distant Supervision Recommend Repeat Modified Barium Swallow: TBD Need for Skilled Speech Therapy Services: Yes Comment: -OK TO ADVANCE TO SOFT AND BITE SIZE TEXTURES / THIN LIQUIDS W/ DIRECT SUPERVISION (ALTERNATE BITES/SIPS) IF CLEARED BY GI FOR SOLIDS FOLLOWING GI INTERVENTION. -Train the patient and staff in use of strategies to decrease risk for aspiration and reflux aspiration. -Ongoing assessment of diet tolerance. Monitor respiratory status closely. If advanced to solids by GI, would train pt in thorough mastication. -Train the patient in oral motor oropharyngeal exercise program (lingual coordination, Corrina, effortful). Recommended Referrals: GI Consult Education Completed: 1. Described result of evaluation. and 7. Pt requires further education on strategies & risks. Status Active ST Patient: Active Contact Information [facility] Speech Therapy:: Ivet Gallardo M.A. CCC-[employer]? Speech-Language Pathologist?? [facility] [address] [place] [address]? [email or web address]?? [phone]
[2024-11-14 15:05] VITALS: BP 94/82; PULSE 75; RESP 18; TEMP 36.3; O2SAT 96
--- NOTE | 2024-11-14 15:57 | CASEMGMT ---
Patient has become confused. RN NERY called and confirmed with son that plan is for patient to return to [facility] when medically ready. Son confirms that plan is for patient to return to [facility]. Son Clinton had no further questions or concerns. Green sheet placed on chart.
--- NOTE | 2024-11-14 19:13 | PN.HOSP_ITS ---
Reason for Visit Chief Complaint: Lower extremity swelling and shortness of breath Subjective Subjective Patient was seen and examined today, her creatinine was minimally improved, I talked with nephrology about her care. Patient's blood pressure has been running low today and I held her Coreg. Objective Data Objective Data Vital Signs: Vital Signs Temp Pulse Resp BP Pulse Ox O2 Del Method O2 Flow Rate 97.3 F L 75 18 94/82 H 96 Nasal Cannula 2 11/14/24 15:05 11/14/24 15:05 11/14/24 15:05 11/14/24 15:05 11/14/24 15:05 11/14/24 15:05 11/14/24 15:05 Oxygen Flow Rate (L/min) 2 Oxygen Delivery Method Nasal Cannula Weight: 105.6 kg Body Mass Index (BMI) 37.5 Intake & Output: Intake and Output for Last 24 Hours 11/12/24 11/13/24 11/14/24 23:59 23:59 23:59 Intake Total 460 / 460 2263.33 / 2263.33 1136.25 / 1136.25 Output Total 0 / 0 370 / 370 Balance 460 / 460 2263.33 / 2263.33 766.25 / 766.25 Lab / Micro Data 11/14/24 07:01 11/14/24 07:01 Labs: Laboratory Results - last 24 hr 11/13/24 22:31: POC Glucose 191 H 11/14/24 06:55: POC Glucose 162 H 11/14/24 07:01: WBC 8.9, RBC 3.60 L, Hgb 9.7 L, Hct 32.2 L, MCV 89.4, MCH 26.9 L , MCHC 30.1 L, RDW Std Deviation 54.4 H, RDW Coeff of Josiah 18.4 H, Plt Count 129 L, MPV 10.1, Immature Gran % (Auto) 0.700, Neut % (Auto) 70.8 H, Lymph % (Auto) 20.0, Mcintosh % (Auto) 7.6, Eos % (Auto) 0.8, Baso % (Auto) 0.1, Absolute Neuts (auto) 6.3, Absolute Lymphs (auto) 1.79, Nucleated RBC % 0, Sodium 136, Potassium 3.6, Chloride 93 L, Carbon Dioxide 23.9, Anion Gap 20 H, BUN 70 H, C reatinine 3.26 H, Estim Creat Clear Calc 18.04 L, Est GFR (MDRD) Non-Af 14 L, B UN/Creatinine Ratio 21.3 H, Glucose 154 H, Calcium 7.8, Total Bilirubin 0.87, A ST 1001 H, ALT 778 H, Alkaline Phosphatase 230 H, Total Protein 5.8 L, Albumin 3.2 L, Globulin 2.6, Albumin/Globulin Ratio 1.2 11/14/24 08:10: Ur Random Sodium < 20, Urine Creatinine 98.40 11/14/24 11:21: POC Glucose 161 H 11/14/24 16:51: POC Glucose 173 H Physical Exam Narrative alert and no apparent distress General Appearance: cooperative, well kempt and well developed Orientation / Consciousness: awake, oriented to person and oriented to place HEENT normocephalic, head/scalp atraumatic and moist oral mucous membranes Eyes PERRL, EOMs intact bilaterally and conjunctivae normal Neck supple, no JVD, thyroid normal and no carotid bruits General: trachea midline Resp normal respiratory effort, no retractions, no use of accessory muscles and clear to auscultation bilaterally Auscultation: Negative for rales, rhonchi or wheezes Cardio S1 normal heart sound, S2 normal heart sound, no rub and no gallops Cardio Narrative: Heart rate and rhythm is irregular GI normal to inspection, nondistended, normoactive bowel sounds, soft to palpation, non-tender and non-distended Extremity no clubbing, cyanosis or edema Skin no rashes or lesions noted General Skin Exam: no breakdown Neuro CN's II-XII intact bilaterally, moves all extremities, no focal motor deficits and no sensory deficits noted Sensorium / Orientation: awake, alert, oriented to person and oriented to place Speech: speech normal Psych affect normal Assessment & Plan Assessment/Plan (1) Chronic anticoagulation: (2) CHF exacerbation: PLAN: Plan 1. Acute exacerbation of chronic congestive heart failure with reduced ejection fraction-patient is currently off Lasix, nephrology is participating in her care and writing for IV fluids #2 acute kidney injury-patient's creatinine today was 3.26, BMP will be monitored, nephrology participating in her care, patient's potassium was normal today #3 chronic atrial fibrillation-patient will remain on her current medications including anticoagulation with Eliquis and rate limiting agents #4 type 2 diabetes-blood sugars will be monitored, sliding scale insulin be administered as needed #5 hyperkalemia-resolved at this time, BMP will be monitored Total clinical time spent by myself addressing the patient's medical issues, reviewing all of her data, and collaborating with patient's care team: 35-minute Charges/Coding Visit Charges Inpatient E&M: 14697 Subs Hosp L2
[2024-11-14 20:15] VITALS: BP 91/59; PULSE 89; RESP 18; TEMP 36.2; O2SAT 100
[2024-11-14] MEDS: MELATONIN 3 MG TABLET 6 MG PO (22:27)
[2024-11-14 22:40] VITALS: BP 112/73; PULSE 84; RESP 16; TEMP 36.5; O2SAT 97
[2024-11-15] MEDS: 0.9% Normal Saline (1000mL) 1,000 ML 75 ML IV ×2 (00:20→13:46)
[2024-11-15 03:11] VITALS: BMI 38.4
[2024-11-15 05:45] VITALS: BP 106/65; PULSE 82; RESP 16; TEMP 36.4; O2SAT 98
[2024-11-15 06:53] VITALS: O2SAT 93
[2024-11-15 08:16] VITALS: BP 83/60; PULSE 71; RESP 18; TEMP 36.9; O2SAT 100
[2024-11-15 08:46] LABS: Anion Gap 12 (5-15); BUN 64 mg/dL (4-19); BUN/Creat Ratio 25.6 RATIO (10-20); Calcium,Total 8.0 mg/dL (7.6-11.0); Carbon Dioxide 31.3 mmol/L (21.0-32.0); Chloride 95 mmol/L (98-108); Estimated Creatinine Clearance 23.89 ml/min (50-250); Glucose 157 mg/dL (70-99); Potassium 2.9 mmol/L (3.3-5.1)
[2024-11-15] MEDS: Polyethylene Glycol 3350 17 GM PACKET PO (09:15)
[2024-11-15] MEDS: Insulin Glargine-YFGN 100 UNIT/ML Pen SC (09:15)
[2024-11-15] MEDS: APIXABAN 5 MG TABLET PO ×2 (09:16→22:00)
--- NOTE | 2024-11-15 13:24 | PCM.PN.HOSP ---
Reason for Visit Chief Complaint: Lower extremity swelling and shortness of breath Subjective Subjective Patient was seen and examined today, it was recommended by speech therapy that she have a gastroenterology consultation, I will contact them and make her n.p.o. after midnight on Sunday for possible EGD on Sunday. Patient's creatinine is somewhat improved, she is alert and responds appropriately to simple questions Objective Data Objective Data Vital Signs: Vital Signs Temp Pulse Resp BP Pulse Ox O2 Del Method O2 Flow Rate 98.4 F 71 18 83/60 L 100 Nasal Cannula 2 11/15/24 08:16 11/15/24 08:16 11/15/24 08:16 11/15/24 08:16 11/15/24 08:16 11/15/24 09:36 11/15/24 09:36 Oxygen Flow Rate (L/min) 2 Oxygen Delivery Method Nasal Cannula Weight: 107.9 kg Body Mass Index (BMI) 38.4 Intake & Output: Intake and Output for Last 24 Hours 11/13/24 11/14/24 11/15/24 23:59 23:59 23:59 Intake Total 2263.33 / 2263.33 1276.25 / 1276.25 1017.5 / 1017.5 Output Total 370 / 370 400 / 400 Balance 2263.33 / 2263.33 906.25 / 906.25 617.5 / 617.5 Lab / Micro Data 11/14/24 07:01 11/15/24 08:02 Labs: Laboratory Results - last 24 hr 11/14/24 16:51: POC Glucose 173 H 11/14/24 22:36: POC Glucose 138 H 11/15/24 06:21: POC Glucose 150 H 11/15/24 08:02: Sodium 138, Potassium 2.9 L, Chloride 95 L, Carbon Dioxide 31.3, Anion Gap 12, BUN 64 H, Creatinine 2.49 H, Estim Creat Clear Calc 23.89 L, Est GFR (MDRD) Non-Af 20 L, BUN/Creatinine Ratio 25.6 H, Glucose 157 H, Calcium 8.0 11/15/24 11:13: POC Glucose 140 H Physical Exam Narrative alert and no apparent distress General Appearance: cooperative, well kempt and well developed Orientation / Consciousness: awake, oriented to person and oriented to place HEENT normocephalic, head/scalp atraumatic and moist oral mucous membranes Eyes PERRL, EOMs intact bilaterally and conjunctivae normal Neck supple, no JVD, thyroid normal and no carotid bruits General: trachea midline Resp normal respiratory effort, no retractions, no use of accessory muscles and clear to auscultation bilaterally Auscultation: Negative for rales, rhonchi or wheezes Cardio S1 normal heart sound, S2 normal heart sound, no rub and no gallops Cardio Narrative: Heart rate and rhythm is irregular GI normal to inspection, nondistended, normoactive bowel sounds, soft to palpation, non-tender and non-distended Extremity no clubbing, cyanosis or edema Skin no rashes or lesions noted General Skin Exam: no breakdown Neuro CN's II-XII intact bilaterally, moves all extremities, no focal motor deficits and no sensory deficits noted Sensorium / Orientation: awake, alert, oriented to person and oriented to place Speech: speech normal Psych affect normal Assessment & Plan Assessment/Plan (1) CHF exacerbation: (2) Chronic anticoagulation: PLAN: Plan 1. Acute exacerbation of chronic congestive heart failure with reduced ejection fraction-patient is currently off Lasix, nephrology is participating in her care and writing for IV fluids #2 acute kidney injury-patient's creatinine today was 2.49, BMP will be monitored, nephrology participating in her care, patient's potassium low today #3 chronic atrial fibrillation-patient will remain on her current medications including anticoagulation with Eliquis and rate limiting agents #4 type 2 diabetes-blood sugars will be monitored, sliding scale insulin be administered as needed #5 hyperkalemia-patient will be given supplemental potassium replacement by IV #6 oropharyngeal dysphagia-I will contact GI to see if they would like her to undergo an EGD. Total clinical time spent by myself addressing the patient's medical issues, reviewing all of her data, and collaborating with patient's care team: 35-minute Charges/Coding Visit Charges Inpatient E&M: 46070 Subs Hosp L2
[2024-11-15 13:42] VITALS: BP 89/71; PULSE 94; RESP 19; TEMP 36.7; O2SAT 94
[2024-11-15] MEDS: Potassium Chloride 10mEq/100mL 10 MEQ/100 ML IV.SOLN. 100 MEQ IV BOLUS ×3 (14:56→17:19)
[2024-11-15 19:00] VITALS: PULSE 69
[2024-11-15 21:55] VITALS: BP 93/76; PULSE 83; RESP 18; TEMP 36.7; O2SAT 99
[2024-11-16] MEDS: 0.9% Normal Saline (1000mL) 1,000 ML 75 ML IV ×2 (03:17→18:17)
[2024-11-16 05:26] VITALS: BP 108/94; PULSE 73; RESP 18; TEMP 37.1; O2SAT 95
[2024-11-16 06:00] VITALS: BMI 38.8
[2024-11-16 07:04] LABS: Anion Gap 13 (5-15); BUN 56 mg/dL (4-19); BUN/Creat Ratio 29.0 RATIO (10-20); Calcium,Total 8.3 mg/dL (7.6-11.0); Carbon Dioxide 30.3 mmol/L (21.0-32.0); Chloride 96 mmol/L (98-108); Estimated Creatinine Clearance 30.83 ml/min (50-250); Glucose 117 mg/dL (70-99); Potassium 3.4 mmol/L (3.3-5.1)
[2024-11-16 07:20] VITALS: O2SAT 94
[2024-11-16 07:42] VITALS: BP 106/83; PULSE 77; RESP 18; TEMP 36.3; O2SAT 100
[2024-11-16] MEDS: Insulin Glargine-YFGN 100 UNIT/ML Pen SC (09:42)
[2024-11-16] MEDS: APIXABAN 5 MG TABLET PO ×2 (09:42→22:51)
--- NOTE | 2024-11-16 09:53 | PCM.PN.REN ---
Subjective Subjective no acute events no new complaints remains NPO, awaiting GI evaluation on IVF Objective Data Objective Data Vital Signs: Vital Signs Temp Pulse Resp BP Pulse Ox O2 Del Method O2 Flow Rate 97.4 F L 77 18 106/83 H 100 Nasal Cannula 2 11/16/24 07:42 11/16/24 07:42 11/16/24 07:42 11/16/24 07:42 11/16/24 07:42 11/16/24 07:42 11/16/24 07:42 Oxygen Flow Rate (L/min) 2 Oxygen Delivery Method Nasal Cannula Weight: 109.18 kg Body Mass Index (BMI) 38.8 Intake & Output: Intake and Output for Last 24 Hours 11/14/24 11/15/24 11/16/24 23:59 23:59 23:59 Intake Total 1276.25 / 1276.25 2767.5 / 2767.5 1000 / 1000 Output Total 370 / 370 1350 / 1650 300 / 300 Balance 906.25 / 906.25 1417.5 / 1117.5 700 / 700 Lab / Micro Data 11/14/24 07:01 11/16/24 05:29 Labs: Laboratory Results - last 24 hr 11/15/24 11:13: POC Glucose 140 H 11/15/24 16:21: POC Glucose 135 H 11/15/24 21:57: POC Glucose 134 H 11/16/24 05:29: Sodium 140, Potassium 3.4, Chloride 96 L, Carbon Dioxide 30.3, Anion Gap 13, BUN 56 H, Creatinine 1.93 H, Estim Creat Clear Calc 30.83 L, Est GFR (MDRD) Non-Af 27 L, BUN/Creatinine Ratio 29.0 H, Glucose 117 H, Calcium 8.3 11/16/24 06:06: POC Glucose 118 H Physical Exam Narrative resting comfortably s1s2 regular b/s diminished +trace LE edema Assessment & Plan Assessment/Plan (1) Hyperkalemia: PLAN: resolved, K 3.4mmol/L today (2) Acidosis, metabolic: PLAN: compensated with serum bicarb of 30 (3) Acute renal insufficiency: PLAN: Acute renal failure with low fractional excretion of sodium in the setting of overdiuresis, heart failure, liver failure. Renal hypoperfusion. Patient is hypotensive, urine output is marginal. Nevertheless she started to make urine, and her creatinine started to improve. I am actually surprised to see such a good albumin, unless it has been given. Plan -stable with scr improving to 1.9mg/dL -ok to continue ivf for now, can discontinue once NPO is lifted -bmp in am
[2024-11-16 13:56] VITALS: BP 108/71; PULSE 71; RESP 17; TEMP 36.3; O2SAT 100
--- NOTE | 2024-11-16 16:44 | PCM.PN.HOSP ---
Reason for Visit Chief Complaint: Lower extremity swelling and shortness of breath Subjective Subjective Patient was seen and examined today, she is alert and appropriate. Renal functions are improved. Patient is due to have an EGD tomorrow for a further workup for her dysphagia Objective Data Objective Data Vital Signs: Vital Signs Temp Pulse Resp BP Pulse Ox O2 Del Method O2 Flow Rate 97.3 F L 71 17 108/71 100 Nasal Cannula 2 11/16/24 13:56 11/16/24 13:56 11/16/24 13:56 11/16/24 13:56 11/16/24 13:56 11/16/24 14:00 11/16/24 14:00 Oxygen Flow Rate (L/min) 2 Oxygen Delivery Method Nasal Cannula Weight: 109.18 kg Body Mass Index (BMI) 38.8 Intake & Output: Intake and Output for Last 24 Hours 11/14/24 11/15/24 11/16/24 23:59 23:59 23:59 Intake Total 1276.25 / 1276.25 2767.5 / 2767.5 1300 / 1300 Output Total 370 / 370 1350 / 1650 675 / 675 Balance 906.25 / 906.25 1417.5 / 1117.5 625 / 625 Lab / Micro Data 11/14/24 07:01 11/16/24 05:29 Labs: Laboratory Results - last 24 hr 11/15/24 21:57: POC Glucose 134 H 11/16/24 05:29: Sodium 140, Potassium 3.4, Chloride 96 L, Carbon Dioxide 30.3, Anion Gap 13, BUN 56 H, Creatinine 1.93 H, Estim Creat Clear Calc 30.83 L, Est GFR (MDRD) Non-Af 27 L, BUN/Creatinine Ratio 29.0 H, Glucose 117 H, Calcium 8.3 11/16/24 06:06: POC Glucose 118 H 11/16/24 12:04: POC Glucose 174 H Physical Exam Narrative alert and no apparent distress General Appearance: cooperative, well kempt and well developed Orientation / Consciousness: awake, oriented to person and oriented to place HEENT normocephalic, head/scalp atraumatic and moist oral mucous membranes Eyes PERRL, EOMs intact bilaterally and conjunctivae normal Neck supple, no JVD, thyroid normal and no carotid bruits General: trachea midline Resp normal respiratory effort, no retractions, no use of accessory muscles and clear to auscultation bilaterally Auscultation: Negative for rales, rhonchi or wheezes Cardio S1 normal heart sound, S2 normal heart sound, no rub and no gallops Cardio Narrative: Heart rate and rhythm is irregular GI normal to inspection, nondistended, normoactive bowel sounds, soft to palpation, non-tender and non-distended Extremity no clubbing, cyanosis or edema Skin no rashes or lesions noted General Skin Exam: no breakdown Neuro CN's II-XII intact bilaterally, moves all extremities, no focal motor deficits and no sensory deficits noted Sensorium / Orientation: awake, alert, oriented to person and oriented to place Speech: speech normal Psych affect normal Assessment & Plan Assessment/Plan (1) CHF exacerbation: (2) Chronic anticoagulation: PLAN: Plan 1. Acute exacerbation of chronic congestive heart failure with reduced ejection fraction-patient is currently off Lasix, nephrology is participating in her care and writing for IV fluids #2 acute kidney injury-patient's creatinine today was 1.93, BMP will be monitored, nephrology participating in her care #3 chronic atrial fibrillation-patient will remain on her current medications including anticoagulation with Eliquis and rate limiting agents #4 type 2 diabetes-blood sugars will be monitored, sliding scale insulin be administered as needed #5 Hypokalemia-corrected at this time #6 oropharyngeal dysphagia-gastroenterology will see the patient tomorrow and she will undergo an EGD, speech therapy is participating in her care Total clinical time spent by myself addressing the patient's medical issues, reviewing all of her data, and collaborating with patient's care team: 35-minute Charges/Coding Visit Charges Inpatient E&M: 52119 Subs Hosp L2
[2024-11-16 18:08] VITALS: BP 98/70; PULSE 89; RESP 15; TEMP 36.4; O2SAT 100
[2024-11-16 22:40] VITALS: BP 105/73; PULSE 86; RESP 16; TEMP 36.4; O2SAT 100
[2024-11-17] VITALS (12 sets, daily range): BP systolic 95–142; BP diastolic 42–99; PULSE 61–88; RESP 12–20; TEMP 36.2–36.6; O2SAT 93–100; BMI 39.5; BMI 39.6
--- NOTE | 2024-11-17 05:55 | EKG12_ITS ---
Test Reason : AM EKG Blood Pressure : */* mmHG Vent. Rate : 75 BPM Atrial Rate : * BPM P-R Int : * ms QRS Dur : 124 ms QT Int : 396 ms P-R-T Axes : * -41 140 degrees QTcB Int : 442 ms Atrial fibrillation with premature ventricular or aberrantly conducted complexes Left axis deviation Non-specific intra-ventricular conduction delay Minimal voltage criteria for LVH, may be normal variant ( [place] product ) Confirmed by FAINA REHMAN, BARBARA ([id number]), editor farm journal GIANNA DILLON ([id number]) on 11/17/2024 1:01:22 PM Referred By: Confirmed By: BARBARA EISENBERG MD
[2024-11-17 06:06] LABS: Hematocrit 33.2 % (37-47); Hemoglobin 9.9 g/dL (12.0-15.0); Immature Granulocytes Count 0.040 X10^3/uL (0.0-0.0); Mean Corp Hgb Conc 29.8 g/dL (32-36); Mean Corpuscular Volume 90.5 fL (81-99); Mean Platelet Vol. 10.2 fl (6.2-12.0); NRBC Flagged by Analyzer 0 % (0-5); POSITIVE COUNT YES; Platelet Count 93 K/mm3 (150-450); RBC Distribution Width CV 17.7 % (11.6-14.6); RBC Distribution Width SD 56.6 fl (35.1-43.9); Red Blood Count 3.67 M/mm3 (4.2-5.4); White Blood Count 7.9 K/mm3 (4.4-11.0)
[2024-11-17 06:10] LABS: Differential Indicated SCAN CRITERIA MET
[2024-11-17] MEDS: 0.9% Normal Saline (1000mL) 1,000 ML 75 ML IV ×2 (06:24→19:21)
[2024-11-17 06:34] LABS: Anion Gap 13 (5-15); BUN 48 mg/dL (4-19); BUN/Creat Ratio 30.6 RATIO (10-20); Calcium,Total 8.3 mg/dL (7.6-11.0); Carbon Dioxide 25.8 mmol/L (21.0-32.0); Chloride 99 mmol/L (98-108); Estimated Creatinine Clearance 39.03 ml/min (50-250); Glucose 118 mg/dL (70-99); Potassium 3.2 mmol/L (3.3-5.1)
[2024-11-17 06:46] LABS: Differential Comment SCANNED
--- NOTE | 2024-11-17 09:29 | CASEMGMT ---
[place] [facility] [place] Bethany Colbert DC Planning Asst.
--- NOTE | 2024-11-17 11:09 | NURSING ---
this RN assuming care of pt at this time
--- NOTE | 2024-11-17 11:54 | PN.RENAL_ITS ---
Subjective Subjective no new complaints Objective Data Objective Data Vital Signs: Vital Signs Temp Pulse Resp BP Pulse Ox O2 Del Method O2 Flow Rate 97.4 F L 64 15 110/79 100 Nasal Cannula 2 11/17/24 07:41 11/17/24 07:41 11/17/24 07:41 11/17/24 07:41 11/17/24 07:41 11/17/24 09:26 11/17/24 09:26 Oxygen Flow Rate (L/min) 2 Oxygen Delivery Method Nasal Cannula Weight: 111.448 kg Body Mass Index (BMI) 39.6 Intake & Output: Intake and Output for Last 24 Hours 11/15/24 11/16/24 11/17/24 23:59 23:59 23:59 Intake Total 2767.5 / 2767.5 2700 / 2700 1000 / 1000 Output Total 1350 / 1650 875 / 1275 850 / 850 Balance 1417.5 / 1117.5 1825 / 1425 150 / 150 Lab / Micro Data 11/17/24 05:48 11/17/24 05:48 Labs: Laboratory Results - last 24 hr 11/16/24 12:04: POC Glucose 174 H 11/16/24 16:37: POC Glucose 152 H 11/16/24 22:49: POC Glucose 149 H 11/17/24 05:48: WBC 7.9, RBC 3.67 L, Hgb 9.9 L, Hct 33.2 L, MCV 90.5, MCH 27.0, MCHC 29.8 L, RDW Std Deviation 56.6 H, RDW Coeff of Josiah 17.7 H, Plt Count 93 L, MPV 10.2, Immature Gran % (Auto) 0.500, Neut % (Auto) 63.5, Lymph % (Auto) 22.6, [place] % (Auto) 10.4 H, Eos % (Auto) 2.7, Baso % (Auto) 0.3, Absolute Neuts (auto) 5.0, Absolute Lymphs (auto) 1.78, Nucleated RBC % 0, Differential Comment SCANNED, Platelet Estimate MOD DEC, Sodium 137, Potassium 3.2 L, Chloride 99, Carbon Dioxide 25.8, Anion Gap 13, BUN 48 H, Creatinine 1.55 H, Estim Creat Clear Calc 39.03 L, Est GFR (MDRD) Non-Af 35 L, BUN/Creatinine Ratio 30.6 H, G lucose 118 H, Calcium 8.3 11/17/24 06:21: POC Glucose 110 H Physical Exam Narrative resting comfortably s1s2 regular b/s diminished +trace LE edema Const Orientation / Consciousness: oriented to person, oriented to place, oriented to time and lethargic Nutritional Appearance: obese HEENT normocephalic Neck no lymphadenopathy Resp no use of accessory muscles Auscultation: wheezes and diminished lung sounds Cardio regular rate and no rub GI non-tender and non-distended Auscultation: normoactive bowel sounds Extremity Extremity Narrative: Both feet are cyanotic, cool to touch Skin General Skin Exam: petechiae Neuro Sensorium / Orientation: lethargic Psych cooperative Memory / Cognition: cognition impaired Assessment & Plan Assessment/Plan (1) Hyperkalemia: PLAN: resolved, K 3.4mmol/L today (2) Acidosis, metabolic: PLAN: compensated with serum bicarb of 30 (3) Acute renal insufficiency: PLAN: Acute renal failure with low fractional excretion of sodium in the setting of overdiuresis, heart failure, liver failure. Renal hypoperfusion. cr is better today
--- NOTE | 2024-11-17 12:43 | PCM.PN.HOSP ---
Subjective Subjective Resting comfortably, maintaining her oxygen saturations on 2 L nasal cannula Objective Data Objective Data Vital Signs: Vital Signs Temp Pulse Resp BP Pulse Ox O2 Del Method O2 Flow Rate 97.7 F L 73 12 95/42 L 100 Nasal Cannula 2 11/17/24 11:58 11/17/24 11:58 11/17/24 11:58 11/17/24 11:58 11/17/24 11:58 11/17/24 11:58 11/17/24 11:58 Oxygen Flow Rate (L/min) 2 Oxygen Delivery Method Nasal Cannula Weight: 245 lb 11.2 oz Body Mass Index (BMI) 39.6 Intake & Output: Intake and Output for Last 24 Hours 11/16/24 11/17/24 11/18/24 03:59 03:59 03:59 Intake Total 2850 / 2850 1700 / 1700 1456.25 / 1456.25 Output Total 1650 / 1650 975 / 975 625 / 625 Balance 1200 / 1200 725 / 725 831.25 / 831.25 Lab / Micro Data 11/17/24 05:48 11/17/24 05:48 Labs: Laboratory Results - last 24 hr 11/16/24 16:37: POC Glucose 152 H 11/16/24 22:49: POC Glucose 149 H 11/17/24 05:48: WBC 7.9, RBC 3.67 L, Hgb 9.9 L, Hct 33.2 L, MCV 90.5, MCH 27.0, MCHC 29.8 L, RDW Std Deviation 56.6 H, RDW Coeff of Josiah 17.7 H, Plt Count 93 L, MPV 10.2, Immature Gran % (Auto) 0.500, Neut % (Auto) 63.5, Lymph % (Auto) 22.6, [place] % (Auto) 10.4 H, Eos % (Auto) 2.7, Baso % (Auto) 0.3, Absolute Neuts (auto) 5.0, Absolute Lymphs (auto) 1.78, Nucleated RBC % 0, Differential Comment SCANNED, Platelet Estimate MOD DEC, Sodium 137, Potassium 3.2 L, Chloride 99, Carbon Dioxide 25.8, Anion Gap 13, BUN 48 H, Creatinine 1.55 H, Estim Creat Clear Calc 39.03 L, Est GFR (MDRD) Non-Af 35 L, BUN/Creatinine Ratio 30.6 H, Glucose 118 H, Calcium 8.3 11/17/24 06:21: POC Glucose 110 H 11/17/24 11:57: POC Glucose 109 H Physical Exam Narrative General: Drowsy, Oriented x3, Cooperative, No apparent distress HEENT: Atraumatic, PERRLA, EOMI, Normocephalic Oral: Moist Mucosa Neck: Supple, No JVD Lungs: Diminished, Normal air movement, No rhonchi, No wheeze, No rales Cardiovascular: Regular rate, Regular Rhythm, Normal S1, Normal S2, No murmurs Abdomen: Soft, Non Tender, Non-Distended, No Hepato-splenomegaly Extremities: No edema, Capillary Refill Less than 3 Seconds Skin: No rashes, No breakdown Musculoskeletal: No Tenderness to Palpation of Joints or Extremities Neurological: No focal neurological deficits, moves all extremities Psych/Mental Status: Flat Assessment & Plan Assessment/Plan (1) CHF exacerbation: (2) Chronic anticoagulation: PLAN: Plan 1. Acute on chronic systolic CHF exacerbation/chronic A-fib/essential HTN/SANDRA from overdiuresis ? Appreciate nephrology's assistance, renal function is improving back to baseline ? She is on 2 L nasal cannula which appears to be baseline ? Continue with her home medications ? Will monitor and make adjustments as necessary ? Continue with Eliquis 2. DM2 ? Continue with sliding scale insulin ? Accu-Cheks ACHS ? Will monitor make adjustments as necessary 3. Anxiety/depression ? Stable ? Continue with her home medications 4. GERD ? Stable ? Continue PPI 5. Oropharyngeal dysphagia ? Planning for gastroenterology evaluation and EGD today 6. UTI ? She had a UA done on November 11 that demonstrated a UTI and she was treated empirically no cultures were obtained DVT: Elijacoby Charges/Coding Visit Charges Inpatient E&M: 33378 Subs Hosp L2
--- NOTE | 2024-11-17 13:11 | PRE.ANES_ITS ---
ASA Classification* ASA Classification ASA Classification: 3 Assessment & Plan Anesthesia* Anesthesia Assessment Anesthesia Assessment: Discussed sedation and/or anesthesia options, risks, benefits, and alternatives with patient/parents/legal guardian/POA. Questions invited. The patient/parents/legal guardian/POA seems to understand and agrees to proceed with anesthesia plan. Reviewed the physical assessment, medical history, allergy history and patient home medications list prior to surgery/procedure/anesthetic and documented any changes. Performed airway and anesthesia risk assessments. Anesthesia Type Anesthesia Type: MAC History Source History Obtained from:: Patient and Chart Anesthesia Focused Assessment* Temperature: 97.7 F Pulse Rate: 73 Blood Pressure: 95/42 Respiratory Rate: 12 Pulse Ox: 100 Oxygen Delivery Method: Nasal Cannula Oxygen Flow Rate (L/min): 2 Airway Assessment Mouth opens: >3 cm Mallampati Score: III Teeth Condition: Dentures (Patient has upper dentures which are currently out.) and Missing (Patient is edentulous on the bottom.) Neck Range of motion (ROM): Limited ROM (Severe Restriction) Labs Anesthesia Preop lab: CBC WBC 7.9 K/mm3 (4.4-11.0) 11/17/24 05:48 11/17/24 RBC 3.67 M/mm3 (4.2-5.4) L 11/17/24 05:48 11/17/24 Hgb 9.9 g/dL (12.0-15.0) L 11/17/24 05:48 11/17/24 Hct 33.2 % (37-47) L 11/17/24 05:48 11/17/24 Plt Count 93 K/mm3 (150-450) L 11/17/24 05:48 11/17/24 CHEMISTRY Potassium 3.2 mmol/L (3.3-5.1) L 11/17/24 05:48 11/17/24 Sodium 137 mmol/L (133-145) 11/17/24 05:48 11/17/24 Magnesium 2.1 mg/dL (1.5-2.2) 11/10/24 05:55 11/10/24 Phosphorus 3.4 mg/dL (2.5-4.9) 01/01/24 04:42 01/01/24 BUN 48 mg/dL (4-19) H 11/17/24 05:48 11/17/24 Creatinine 1.55 mg/dL (0.70-1.20) H 11/17/24 05:48 Glucose 118 mg/dL (70-99) H 11/17/24 05:48 11/17/24 POC Glucose 109 mg/dL (74-106) H 11/17/24 11:57 11/17/24 TSH 1.650 uIU/mL (0.358-3.740) 01/01/24 04:42 12/09 07/31 COAG PT 20.9 SECONDS (11.7-14.9) H 12/31/23 17:57 12/09 06/30 Pre-Assessment Diagnosis/Proposed Procedure Planned Operative Procedure(s): Esophagogastroduodenoscopy Anesthesia History Anesthesia History - souvenir assembler: Anesthesia History - souvenir assembler Hx Hospitalization Yes: [facility] 10/21/24 08:35 Any Problems With Anesthesia No 10/21/24 08:35 Cholinesterase deficiency No 10/21/24 08:35 You/Your Family Experience No 10/21/24 08:35 fever (hyperthermia) with Relationship Recent Exposure to Contagious No 10/28/24 10:53 Disease Does patient have nerve No 10/21/24 08:35 stimulator Patient instructed to have device shut off --Does patient have Pacemaker No 11/17/24 04:03 or ICD? When Was Last Pacemaker Check QUESTION #4 FULL TEXT: You/Your Family Experience fever (hyperthermia) with Anesthesia Last Oral Intake Last Oral intake: Last Oral Intake NPO since 00:01 11/17/24 04:03 Meds taken in AM with sips of water? Meds patient instructed to take am of surgery PONV PONV - souvenir assembler: PONV - souvenir assembler Female HX of Motion Sickness HX of N/V After Surgery Non-Smoker Duration of Surgery greater than 60 minutes Number of Risk Factors PONV Score Height & Weight Height & Weight: Anesthesia: Height & Weight Height 5 ft 6 in 11/17/24 04:03 Weight: 111.448 kg 11/17/24 04:03 Body Mass Index (BMI) 39.6 11/17/24 04:03 Respiratory Assessment Respiratory Assessment - souvenir assembler: Respiratory Tract Infection Hx - souvenir assembler Hx Respiratory Tract Infection No 10/21/24 08:35 Any additional information?: Yes Hx Respiratory Tract Infection: Yes History of Anesthesia Respiratory Infection details: Patient admitted with possible aspiration pneumonia. Patient is currently on nasal cannula oxygen. Not feeling any shortness of breath. STOP Sleep Apnea STOP Sleep Apnea - souvenir assembler: STOP Sleep Apnea - souvenir assembler Hx Hypertension Yes 11/09/24 12:59 Hx Sleep Apnea No 11/09/24 09:08 CPAP BIPAP Do you snore loudly (louder No 11/09/24 09:08 than talking or can be heard Do you often feel tired/ Yes 11/09/24 09:08 fatigued/ sleepy during daytime? Has anyone observed you stop No 11/09/24 09:08 breathing during sleep? STOP Results Positive 11/09/24 09:08 QUESTION #5 FULL TEXT : Do you snore loudly (louder than talking or can be heard through closed doors)? Tobacco Use History Tobacco Use History - souvenir assembler: Tobacco Use History - souvenir assembler Tobacco Use Smoking Status Never smoker 11/09/24 09:08 Hx Tobacco Use No 11/09/24 09:08 Years Smoking Packs Smoked per Day Smoking Cessation Date was within the last 15 years Hx Smoking Cessation Date Hx Smoking Cessation Counseling Hematologic Medial History Hematologic Hx - souvenir assembler: Hematologic Medical Hx - marketing operations consultant Hx of Blood Transfusion No 11/09/24 09:08 Hx of Transfusion in last 3 No 11/09/24 09:08 Months Date of Last Transfusion (if within last 3 months) Ever experience any problems No 11/09/24 09:08 with transfusion(s)? Specify any problems Hx of Preganancy in last 3 No 11/09/24 09:08 Months Nurse Filling Out Transfusion [id number] 11/09/24 09:08 & Questions: Date: 11/09/24 11/09/24 09:08 Time: 09:15 11/09/24 09:08 Patient unable to answer at this time (ie. confused, unrespo /Reproduction History /Reproductive History - souvenir assembler: /Reproductive Hx- souvenir assembler Hx Now Gestational Age (in weeks): EDC: Hx Hx Para Hx Section SAB No 10/21/24 08:35 Active Medications Active Medications: Current Medications Generic Name Dose Route Start Last Admin Trade Name Freq PRN Reason Stop Dose Admin Acetaminophen 650 mg 11/09/24 08:25 Acetaminophen 325 Mg Tablet PO Q6H PRN PRN Pain 1-10 Or Fever >100.7 Albuterol Sulfate 2.5 mg 11/09/24 08:25 11/13/24 01:42 Albuterol 2.5 Mg/3 Ml Vial.Neb. INHALATION 2.5 mg Q2H PRN PRN Administration SOB &/OR WHEEZING Apixaban 5 mg 11/09/24 10:00 11/17/24 11:03 Apixaban 5 Mg Tablet PO Not Given BID SEVEN Benzonatate 100 mg 11/09/24 08:25 Benzonatate 100 Mg Capsule PO TID PRN cough Buspirone HCl 5 mg 11/09/24 10:00 11/16/24 22:51 Buspirone 5 Mg Tablet PO 5 mg BID SEVEN Administration Carvedilol 6.25 mg 11/11/24 17:00 11/17/24 12:02 Carvedilol 6.25 Mg Tablet PO 6.25 mg BIDCM SEVEN Administration Protocol Cyclobenzaprine HCl 5 mg 11/09/24 14:00 11/17/24 06:23 Cyclobenzaprine Hcl 5 Mg Tablet PO 5 mg TID SEVEN Administration Docusate Sodium 100 mg 11/09/24 10:00 11/17/24 11:04 Docusate Sodium 100 Mg Capsule PO Not Given BID SEVEN Ferrous Sulfate 325 mg 11/09/24 12:00 11/17/24 11:05 Ferrous Sulfate 325 Mg Tablet PO Not Given DAILY@1200 [facility] Glucagon 1 mg 11/09/24 08:25 Glucagon 1 Mg/Ml Syringe IM X1 PRN HYPOGLYCEMIA Protocol Dextrose 250 mls @ 0 mls/hr 11/09/24 08:25 Dextrose 10%-Water IV .Q0M PRN HYPOGLYCEMIA Protocol As Directed Sodium Chloride 250 mls @ 15 mls/hr 11/10/24 11:05 IV .[id number] PRN Saline Flush Sodium Chloride 250 mls @ 15 mls/hr 11/10/24 11:05 IV .[id number] PRN Additional IVPB Infusion Sodium Chloride 1,000 mls @ 75 mls/hr 11/14/24 11:35 11/17/24 12:29 IV 75 mls/hr .[id number] SEVEN Infusion Insulin Glargine 4 unit 11/09/24 10:00 11/17/24 11:05 Insulin Glargine-Yfgn 100 Unit/Ml Pen SC Not Given DAILY [facility] Insulin Human Lispro 0 unit 11/09/24 11:00 11/17/24 06:23 Insulin Lispro 100 Unit/Ml Insuln.Pen SC Not Given ACHS [facility] Protocol Melatonin 6 mg 11/09/24 22:00 11/16/24 22:51 Melatonin 3 Mg Tablet PO Not Given QHS SEVEN Nystatin 1 applic 11/10/24 10:00 11/16/24 22:52 Nystatin Powder 15gm Bottle TOPICAL 1 applic BID [facility] Administration Protocol Ondansetron HCl 4 mg 11/09/24 08:25 11/10/24 19:25 Ondansetron 4 Mg/2 Ml Vial IV 4 mg Q8H PRN PRN Administration NAUSEA/VOMITING Pantoprazole Sodium 40 mg 11/09/24 10:00 11/17/24 11:05 Pantoprazole Sodium 40 Mg Tablet PO Not Given DAILY [facility] Polyethylene Glycol 17 gm 11/09/24 10:00 11/17/24 11:05 Polyethylene Glycol 3350 17 Gm Packet PO Not Given QODAY [facility] Senna/Docusate Sodium 2 tablet 11/09/24 08:25 Senna/Docusate Sodium 1 Tablet PO BID PRN PRN Constipation Sodium Chloride 10 - 40 ml 11/10/24 11:05 11/12/24 15:14 0.9% Saline Lock 10 Ml Syringe IV 20 ml UD PRN Administration SALINE FLUSH Venlafaxine HCl 150 mg 11/09/24 10:00 11/16/24 09:41 Venlafaxine Xr 150 Mg Capsule PO 150 mg DAILY [facility] Administration PFSH Medical History Post-menopausal History of ulceration Gastric reflux History of stress test History of irregular heartbeat Aortic stenosis Lives in skilled nursing Wears glasses Wears partial dentures Marijuana use Discoloration of skin Open wound Insulin dependent diabetes mellitus Uses wheelchair Arthritis History of renal disease Low iron High cholesterol Back pain Dietary restriction History of GI bleed Non-smoker Chronic cough History of edema History of echocardiogram Cardiology follow-up encounter History of CHF (congestive heart failure) History of atrial fibrillation Palpitations Magnesium deficiency Diarrhea Asthma Vertebral osteomyelitis Discitis of thoracic region Intractable back pain Syndrome of inappropriate secretion of antidiuretic hormone Age-related incipient cataract of both eyes Iron deficiency anemia Generalized muscle weakness Morbid obesity with BMI of 40.0-44.9, adult Vitamin D deficiency Venous stasis ulcer with varicose veins Renal lesion Primary osteoarthritis of both knees History of colonic polyps Neurodermatitis Lymphedema of leg Lumbar facet arthropathy Benign essential hypertension Anemia Anxiety Depression CHF (congestive heart failure) A-fib COPD (chronic obstructive pulmonary disease) Kidney disease Diabetes Hyperlipidemia History of ESBL E. coli infection History of infection with vancomycin resistant Enterococcus (VRE) Altered mental status Home Medications ?Medication ?Instructions ?Recorded ?Last Taken ?Type cholecalciferol (vitamin D3) 25 25 mcg PO DAILY Unknown History mcg (1,000 unit) capsule insulin lispro 100 unit/mL See Protocol subcut .TIDCM& HS 12/31/23 Unknown History subcutaneous pen (Humalog KwikPen (U-100) Insulin) nystatin 100,000 unit/gram topical 1 applic topical BI D PRN skin 12/31/23 Unknown History powder irritation potassium chloride 10 mEq 20 meq PO DAILY 12/31/23 Unk nown History capsule,extended release melatonin 3 mg tablet 6 mg (2 x 3 mg) PO QHS #0 ta bs 01/08/24 Unknown Rx buspirone 5 mg tablet 5 mg PO BID 03/28/24 Unknown History dapagliflozin propanediol 5 mg 5 mg PO DAILY 03/28/24 Unknown History tablet (Farxiga) ferrous sulfate 325 mg (65 mg 325 mg PO QDAY 04/28/24 Unknown History iron) tablet furosemide 20 mg tablet 40 mg PO QAM 04/28/24 Unknow n History pantoprazole 40 mg tablet,delayed 40 mg PO QDAY #90 ta bs 04/28/24 Unknown Rx release cyclobenzaprine 10 mg tablet 5 mg PO TID 06/10/24 Unkn own History acetaminophen 325 mg tablet 650 mg PO Q4H PRN Pain 1- Or 06/30/24 Unknown History Fever>100.7 albuterol sulfate 90 mcg/actuation 2 inh inhalation Q6 H PRN shortness 06/30/24 Unknown History aerosol inhaler of breath or wheezing guaifenesin 400 mg tablet 400 mg PO Q4H PRN cough 06/08 08/01 Unknown History insulin glargine 100 unit/mL (3 8 unit subcut DAILY 07/01/24 History mL) subcutaneous pen (Lantus Solostar U-100 Insulin) polyethylene glycol 3350 17 17 g PO QODAY 06/30/24 Unk nown History gram/dose oral powder (Miralax) apixaban 5 mg tablet (Eliquis) 5 mg PO BID #90 tabs 10/23/24 Rx carvedilol 3.125 mg tablet 3.125 mg PO BID #180 tabs 0 07/31/24 Unknown Rx docusate sodium 100 mg capsule 100 mg PO BID 10/09/24 Unknown History venlafaxine 150 mg 150 mg PO QDAY 10/09/24 Unkn own History capsule,extended release 24 hr benzonatate 100 mg capsule 100 mg PO TID PRN cough Unknown History magnesium hydroxide 400 mg/5 mL 30 ml PO DAILY PRN con stipation 10/21/24 Unknown History oral suspension (Milk of Magnesia) Allergy/AdvReac Type Severity Reaction Status Date / Time No Known Allergies Allergy Verified 11/09/24 04:29 Family History Mother Alzheimer dementia Breast cancer Heart disease Brother Cystic fibrosis Surgical History History of colonoscopy S/P laminectomy History of tubal ligation Hx of cholecystectomy H/O section Social History Smoking Status: Never smoker alcohol intake: never Review of Systems (Anesthesia) ROS Narrative System reviewed and no additional complaints, except as documented.
--- NOTE | 2024-11-17 13:13 | EX.PCM.CON.G ---
HPI Consult Data Date of Consult: 11/17/24 HPI Narrative Reason for Consultation: Dysphagia HPI Narrative: DARYN SHAH, is a 78-year-old female history of heart failure with reduced ejection fraction, diabetes, A-fib on Eliquis, COPD, GERD, depression and anxiety who presented [facility] ED 11/09/2024 due to increasing lower extremity swelling, weight gain, orthopnea and worsening dyspnea. She was diagnosed with CHF exacerbation. During her stay she was noted to have worsening swallowing with solids. She does have history gastroesophageal reflux disease. I was consulted for esophageal dysphagia. She denies any odynophagia. She denies any chest pain. She was short of breath on admission but that is improved. [facility] Medical History Post-menopausal History of ulceration Gastric reflux History of stress test History of irregular heartbeat Aortic stenosis Lives in halfway Wears glasses Wears partial dentures Marijuana use Discoloration of skin Open wound Insulin dependent diabetes mellitus Uses wheelchair Arthritis History of renal disease Low iron High cholesterol Back pain Dietary restriction History of GI bleed Non-smoker Chronic cough History of edema History of echocardiogram Cardiology follow-up encounter History of CHF (congestive heart failure) History of atrial fibrillation Palpitations Magnesium deficiency Diarrhea Asthma Vertebral osteomyelitis Discitis of thoracic region Intractable back pain Syndrome of inappropriate secretion of antidiuretic hormone Age-related incipient cataract of both eyes Iron deficiency anemia Generalized muscle weakness Morbid obesity with BMI of 40.0-44.9, adult Vitamin D deficiency Venous stasis ulcer with varicose veins Renal lesion Primary osteoarthritis of both knees History of colonic polyps Neurodermatitis Lymphedema of leg Lumbar facet arthropathy Benign essential hypertension Anemia Anxiety Depression CHF (congestive heart failure) A-fib COPD (chronic obstructive pulmonary disease) Kidney disease Diabetes Hyperlipidemia History of ESBL E. coli infection History of infection with vancomycin resistant Enterococcus (VRE) Altered mental status Home Medications ?Medication ?Instructions ?Recorded ?Last Taken ?Type cholecalciferol (vitamin D3) 25 25 mcg PO DAILY 12/31/23 Unknown History mcg (1,000 unit) capsule insulin lispro 100 unit/mL See Protocol subcut .TIDCM&HS 12/31/23 Unknown History subcutaneous pen (Humalog KwikPen (U-100) Insulin) nystatin 100,000 unit/gram topical 1 applic topical BID PRN skin 12/31/23 Unknown History powder irritation potassium chloride 10 mEq 20 meq PO DAILY 12/31/23 Unknown History capsule,extended release melatonin 3 mg tablet 6 mg (2 x 3 mg) PO QHS #0 tabs 01/08/24 Unknown Rx buspirone 5 mg tablet 5 mg PO BID 03/28/24 Unknown History dapagliflozin propanediol 5 mg 5 mg PO DAILY 03/28/24 Unknown History tablet (Farxiga) ferrous sulfate 325 mg (65 mg 325 mg PO QDAY 04/28/24 Unknown History iron) tablet furosemide 20 mg tablet 40 mg PO QAM 04/28/24 Unknown History pantoprazole 40 mg tablet,delayed 40 mg PO QDAY #90 tabs 04/28/24 Unknown Rx release cyclobenzaprine 10 mg tablet 5 mg PO TID 06/10/24 Unknown History acetaminophen 325 mg tablet 650 mg PO Q4H PRN Pain 1-08/16 Or 06/30/24 Unknown History Fever>100.7 albuterol sulfate 90 mcg/actuation 2 inh inhalation Q6H PRN shortness 06/30/24 Unknown History aerosol inhaler of breath or wheezing guaifenesin 400 mg tablet 400 mg PO Q4H PRN cough 06/30/24 Unknown History insulin glargine 100 unit/mL (3 8 unit subcut DAILY 06/30/24 07/01/24 History mL) subcutaneous pen (Lantus Solostar U-100 Insulin) polyethylene glycol 3350 17 17 g PO QODAY 06/30/24 Unknown History gram/dose oral powder (Miralax) apixaban 5 mg tablet (Eliquis) 5 mg PO BID #90 tabs 07/23/24 10/23/24 Rx carvedilol 3.125 mg tablet 3.125 mg PO BID #180 tabs 07/31/24 Unknown Rx docusate sodium 100 mg capsule 100 mg PO BID 10/09/24 Unknown History venlafaxine 150 mg 150 mg PO QDAY 10/09/24 Unknown History capsule,extended release 24 hr benzonatate 100 mg capsule 100 mg PO TID PRN cough 10/21/24 Unknown History magnesium hydroxide 400 mg/5 mL 30 ml PO DAILY PRN constipation 10/21/24 Unknown History oral suspension (Milk of Magnesia) Allergy/AdvReac Type Severity Reaction Status Date / Time No Known Allergies Allergy Verified 11/09/24 04:29 Family History Mother Alzheimer dementia Breast cancer Heart disease Brother Cystic fibrosis Surgical History History of colonoscopy S/P laminectomy History of tubal ligation Hx of cholecystectomy H/O section Social History Smoking Status: Never smoker alcohol intake: never ROS Constitutional Constitutional: Denies fatigue, fever(s), poor appetite, weight gain or weight loss Gastrointestinal Gastrointestinal: Denies belching, bloating, change in bowel habits, change in stool character, chewing difficulty, coffee ground emesis, constipation, cramping, diarrhea, dyspepsia, dysphagia, early satiety, excessive flatus, fecal incontinence, heartburn, hematemesis, hematochezia, hemorrhoids, loose stools, melena, nausea, odynophagia, rectal bleeding, tenesmus, vomiting or weight changes Physical Exam Const alert, oriented x3, no apparent distress and healthy appearing General Appearance: cooperative GI normal to inspection, nondistended, normoactive bowel sounds, soft to palpation, non-tender and non-distended Percussion: normal to percussion Rectal Exam: deferred Lab / Micro Data 11/17/24 05:48 11/17/24 05:48 Labs: Laboratory Results - last 24 hr 11/16/24 16:37: POC Glucose 152 H 11/16/24 22:49: POC Glucose 149 H 11/17/24 05:48: WBC 7.9, RBC 3.67 L, Hgb 9.9 L, Hct 33.2 L, MCV 90.5, MCH 27.0, MCHC 29.8 L, RDW Std Deviation 56.6 H, RDW Coeff of Josiah 17.7 H, Plt Count 93 L, MPV 10.2, Immature Gran % (Auto) 0.500, Neut % (Auto) 63.5, Lymph % (Auto) 22.6, [place] % (Auto) 10.4 H, Eos % (Auto) 2.7, Baso % (Auto) 0.3, Absolute Neuts (auto) 5.0, Absolute Lymphs (auto) 1.78, Nucleated RBC % 0, Differential Comment SCANNED, Platelet Estimate MOD DEC, Sodium 137, Potassium 3.2 L, Chloride 99, Carbon Dioxide 25.8, Anion Gap 13, BUN 48 H, Creatinine 1.55 H, Estim Creat Clear Calc 39.03 L, Est GFR (MDRD) Non-Af 35 L, BUN/Creatinine Ratio 30.6 H, Glucose 118 H, Calcium 8.3 11/17/24 06:21: POC Glucose 110 H 11/17/24 11:57: POC Glucose 109 H Assessment & Plan Assessment/Plan (1) Dysphagia: PLAN: Patient will undergo an upper endoscopy to evaluate upper GI tract. She was explained alternatives, risk and benefits include not withstanding bleeding, infection, subs, perforation, need for charge and . She will have an ASA of 3. Charges/Coding Visit Charges Inpatient E&M: 52982 Init Hosp L2
--- NOTE | 2024-11-17 13:30 | EGD_PTH ---
PATIENT: DARYN SHAH LOC: [facility] U#:[id number] AGE/SX: 78/F ROOM: [facility] RE11/09/[address]: Dr. Shabbir Ricks MD : 1945 BED: 1 DIS: 11/18/2024 SPEC #: [id number] RECD: 11/17/24 13:52 STATUS: ADAM GARCIA #: [id number] CAREN: 11/17/24 13:[address]: Jacinto Munoz DEPT: SURGICAL PATHOLOGY RECD BY: Mookie Lazar ENTERED: 11/17/24 14:19 SP TYPE: EGD BIOPSY OTHR DR: DO Dr. Shabbir Stubbs MD Dr. Paige Pierce, MD Dr. Scott Wilkins, DO Jeri Rowland NP-Hollie Tissues: A - Esophagus, NOS Procedures: Surgery Specimen Level IV Comments: @ Ordering doctor for JOHANNA edited from to @ alanis KELLEY at 11/17/24 8234 @ Submitting doctor edited from to @ alanis KELLEY at 11/17/24 1413 HEADER OPERATION: EGD - dysphagia PRE-OP DIAGNOSIS: Dysphagia TISSUE SUBMITTED: A- Random esophagus biopsy MICROSCOPIC DIAGNOSIS A. Esophagus, random, biopsy: - Benign squamous mucosa negative for eosinophils. MICROSCOPIC DESCRIPTION Slides are reviewed. GROSS DESCRIPTION A. Received in fixative is one container labeled with the patient's name and designated Random esophagus biopsy. The specimen consists of multiple irregular fragments of light chase soft tissue that in aggregate measure 0.8 x 0.4 x <0.1 cm. The specimen is totally submitted in one cassette. MN 11/17/2024 CPT:90226
--- NOTE | 2024-11-17 13:46 | OP.PROVAT_ITS ---
11/17/2024 Delgado Amaro Do Re : Upper GI endoscopy procedure for Susanne Dupree Dear Dr. Amaro This procedure was performed on Sunday, November 17, 2024. My impressions and recommendations are as follows: Impressions : - Moderately severe non-erosive esophagitis with no bleeding. Biopsied. - Abnormal esophageal motility. Dilated. - Bile gastritis. - No gross lesions in the second portion of the duodenum. Recommendations : - [facility]. - Advance diet as tolerated. - Continue present medications. My findings are described in the full procedure note, which is enclosed. If I can be of further assistance, please feel free to contact me at . Sincerely, Jacinto Munoz, 11/17/2024 1:46:00 PM This report has been signed electronically.
--- NOTE | 2024-11-17 13:46 | OP.EGD_ITS ---
Patient Name: Susanne Dupree Procedure Date: 11/17/2024 1:21 PM Date of : 1945 Age: 78 Procedure: Upper GI endoscopy Indications: Dysphagia Providers: Jacinto Munoz DO Medicines: Monitored Anesthesia Care Patient Profile: This is a 78 year old female. Refer to note in patient chart for documentation of history and physical. Patient has symptoms of dysphagia with both liquids and solids. Complications: No immediate complications. Estimated blood loss: Minimal. Procedure: Pre-Anesthesia Assessment: - Prior to the procedure, a History and Physical was performed, and patient medications and allergies were reviewed. The patient is competent. The risks and benefits of the procedure and the sedation options and risks were discussed with the patient. All questions were answered and informed consent was obtained. Patient identification and proposed procedure were verified by the physician. Mental Status Examination: normal. Airway Examination: normal oropharyngeal airway and neck mobility. Prophylactic Antibiotics: The patient does not require prophylactic antibiotics. Prior Anticoagulants: The patient has taken no anticoagulant or antiplatelet agents except for NSAID medication. ASA Grade Assessment: II - A patient with mild systemic disease. After reviewing the risks and benefits, the patient was deemed in satisfactory condition to undergo the procedure. The anesthesia plan was to use monitored anesthesia care (MAC). Immediately prior to administration of medications, the patient was re-assessed for adequacy to receive sedatives. The heart rate, respiratory rate, oxygen saturations, blood pressure, adequacy of pulmonary ventilation, and response to care were monitored throughout the procedure. The physical status of the patient was re-assessed after the procedure. After obtaining informed consent, the endoscope was passed under direct vision. Throughout the procedure, the patient's blood pressure, pulse, and oxygen saturations were monitored continuously. The gastroscope was introduced through the mouth, and advanced to the second part of duodenum. The upper GI endoscopy was accomplished without difficulty. The patient tolerated the procedure well. Scope In: 1:35:07 PM Scope Out: 1:39:36 PM Total Procedure Duration Time 0 hours 4 minutes 29 seconds Findings: Moderately severe esophagitis with no bleeding was found. Biopsies were taken with a cold forceps for histology. Verification of patient identification for the specimen was done. Estimated blood loss: none. Abnormal motility was noted in the esophagus. The cricopharyngeus was abnormal. There is a decrease in motility of the esophageal body. The distal esophagus/lower esophageal sphincter is spastic, but gives up passage to the endoscope. Primary peristaltic waves are noted. A guidewire was placed and the scope was withdrawn. Dilation was performed with a Savary dilator with no resistance at 51 Fr. The dilation site was examined and showed moderate mucosal disruption. Diffuse mild inflammation characterized by erythema was found at the pylorus. No gross lesions were noted in the second portion of the duodenum. Impression: - Moderately severe non-erosive esophagitis with no bleeding. Biopsied. - Abnormal esophageal motility. Dilated. - Bile gastritis. - No gross lesions in the second portion of the duodenum. Recommendation: - [facility] to [facility] care. - Advance diet as tolerated. - Continue present medications. Procedure Code(s): --- Professional --- 70181, Esophagogastroduodenoscopy, flexible, transoral; with insertion of guide wire followed by passage of dilator(s) through esophagus over guide wire 32838, 59,51, Esophagogastroduodenoscopy, flexible, transoral; with biopsy, single or multiple CPT copyright 2021 [employer]. All rights reserved. The codes documented in this report are preliminary and upon seo intern review may be revised to meet current compliance requirements. Jacinto Munoz DO 11/17/2024 1:46:00 PM This report has been signed electronically. Number of Addenda: 0 Note Initiated On: 11/17/2024 1:21 PM
--- NOTE | 2024-11-17 13:53 | PCM.POST.ANE ---
Anesthesia: Postop Eval I Current Vital Signs Temperature: 97.2 F Pulse Rate: 79 Blood Pressure: 114/83 Respiratory Rate: 16 Pulse Ox: 99 Oxygen Delivery Method: Room Air Assessment Airway patent: Yes Spontaneous unlabored respirations: Yes Mental status: Asleep nausea: No Vomiting: No Anesthesia Complication: No Fluid Hydration Crystalloid volume administer (ml): 200 Total IV fluid infused: 200 Progress Note Anesthesia document: Postop Eval 1 completed: Yes
[2024-11-17] MEDS: 0.9% Saline Lock 10 ML Syringe IV (15:50)
--- NOTE | 2024-11-17 16:11 | NURSING ---
This RN taking over care of pt at this time.
--- NOTE | 2024-11-17 16:38 | PCM.POSTANE2 ---
Anesthesia Postop Eval I Sum Postop Eval Completion status Anesthesia document: Postop Eval 1 completed: Yes Anesthesia Postop Eval I Summary Anesthesia Postop Eval I Summary: Anesthesia Postop Eval I: Assessment Summary Airway patent Yes 11/17/24 13:54 [email or web address] Spontaneous unlabored Yes 11/17/24 13:54 [email or web address] respirations Mental status Asleep 11/17/24 13:54 [email or web address] nausea No 11/17/24 13:54 [email or web address] Vomiting No 11/17/24 13:54 [email or web address] Anesthesia Postop Eval I: Fluid Summary Crystalloid volume administer 200 11/17/24 13:54 [email or web address] (ml) Colloids volume administered ( ml) Blood Product volume administered (ml) Total IV fluid infused 200 11/17/24 13:54 [email or web address] Anesthesia Postop Eval I: Summary Notes Anesthesia Complication No 11/17/24 13:54 [email or web address] Anesthesia Complication Comment: Post-operative progress note Anesthesia: Postop Eval II Evaluation Mental status: Awake Pain Level: 0 nausea: No Vomiting: No
[2024-11-17] MEDS: APIXABAN 5 MG TABLET PO (22:26)
[2024-11-17] MEDS: MELATONIN 3 MG TABLET 6 MG PO (22:26)
[2024-11-18 02:00] VITALS: BP 105/47; PULSE 67; RESP 16; TEMP 36.6; O2SAT 97
[2024-11-18 06:00] VITALS: BMI 40.1
[2024-11-18 06:26] LABS: Hematocrit 34.3 % (37-47); Hemoglobin 10.3 g/dL (12.0-15.0); Immature Granulocytes Count 0.030 X10^3/uL (0.0-0.0); Mean Corp Hgb Conc 30.0 g/dL (32-36); Mean Corpuscular Volume 90.0 fL (81-99); Mean Platelet Vol. 10.3 fl (6.2-12.0); NRBC Flagged by Analyzer 0 % (0-5); Platelet Count 110 K/mm3 (150-450); RBC Distribution Width CV 17.7 % (11.6-14.6); RBC Distribution Width SD 57.4 fl (35.1-43.9); Red Blood Count 3.81 M/mm3 (4.2-5.4); White Blood Count 9.6 K/mm3 (4.4-11.0)
[2024-11-18 07:04] LABS: Anion Gap 14 (5-15); BUN 45 mg/dL (4-19); BUN/Creat Ratio 32.2 RATIO (10-20); Calcium,Total 8.7 mg/dL (7.6-11.0); Carbon Dioxide 25.2 mmol/L (21.0-32.0); Chloride 99 mmol/L (98-108); Estimated Creatinine Clearance 43.57 ml/min (50-250); Glucose 125 mg/dL (70-99); Potassium 3.8 mmol/L (3.3-5.1)
[2024-11-18] MEDS: Insulin Glargine-YFGN 100 UNIT/ML Pen SC (08:37)
[2024-11-18] MEDS: APIXABAN 5 MG TABLET PO (08:42)
--- NOTE | 2024-11-18 09:32 | PCM.TXEXTCAR ---
Diet Diet Order/Speech Therapy: INPATIENT Hospital Diet / Speech Therapy Order(s) 11/17/24 15:42 Diet: Cardiac - Heart Healthy Food consistency:: Soft & Bite Sized Liquid Consistency:: Regular/Thin Dietary Modifications:: Consistent Carbohydrate Type of Dietary Supplement:: Ensure Clear Fluid restriction:: 1750 mL Diet Comments: 240ml mixed berr ensure clear with dinner Speech Therapy Comments: Direct supervision, Meds whole in , Alternate bites/sips Routine Orders/Code Status Routine Lab Work: CBC and BMP Code Status: DNRCC-A DC O2, CPAP, BIPAP needs Home O2 Discharge instructions: No Wound(s) face and bue: Wound Type: scratches from picking Therapies Physical Therapy: Eval and Treat Occupational Therapy: Eval and Treat Problem/Diagnosis (1) Dysphagia: Status: Acute Code(s): R13.10 - Dysphagia, unspecified Plan 1. Acute on chronic systolic CHF exacerbation/chronic A-fib/essential HTN/SANDRA from overdiuresis ? Appreciate nephrology's assistance, renal function is improving back to baseline ? She is on 2 L nasal cannula which appears to be baseline ? Continue with her home medications ? Will monitor and make adjustments as necessary ? Continue with Eliquis 2. DM2 ? Continue with sliding scale insulin ? Accu-Cheks ACHS ? Will monitor make adjustments as necessary 3. Anxiety/depression ? Stable ? Continue with her home medications 4. GERD ? Stable ? Continue PPI 5. Oropharyngeal dysphagia ? Planning for gastroenterology evaluation and EGD today 6. UTI ? She had a UA done on November 11 that demonstrated a UTI and she was treated empirically no cultures were obtained DVT: Eliquis Allergies/Procedures Done in Hospital Allergies No Known Allergies Allergy (Verified 11/09/24 04:29) Procedures: EGD Type of Care/Length of Stay Estimated LOS: Convalescent Care Less Than 30 days Type of Care Needed: Skilled Rehab Potential: Fair Prognosis: Fair Additional Orders/Day of Discharge Day of Discharge: 11/18/24 Dietary and Speech Recommendations Dietitian Recommendations/Changes: Recommend advanced diet as tolerated to cardiac, CCD with 1750ml fluid restriction per PSYCHIATRIC NP recommendations. Will order 240ml mixed apodaca ensure clear with dinner. Will monitor weight trends. Discharge Plan Admission Admit Date/Time: 11/09/24 07:47 Attending Provider: Shabbir Ricks Primary Care Provider: Delgado Amaro Consulting Providers: Emily Cummings; Jeri Rowland; Edmundo Monge Discharge Orders/Prescriptions Prescriptions: Continued pantoprazole 40 mg tablet,delayed release (DR/EC) 40 mg PO QDAY Qty: 90 1RF ferrous sulfate 325 mg (65 mg iron) tablet 325 mg PO QDAY Patient Comments: ON HOLD FOR CSCOPE cyclobenzaprine 10 mg tablet 5 mg PO TID Eliquis 5 mg tablet 5 mg PO BID Qty: 90 3RF carvedilol 3.125 mg tablet 3.125 mg PO BID Qty: 180 3RF venlafaxine 150 mg capsule,extended release 24hr 150 mg PO QDAY docusate sodium 100 mg capsule 100 mg PO BID buspirone 5 mg tablet 5 mg PO BID dapagliflozin propanediol [Farxiga] 5 mg tablet 5 mg PO DAILY Patient Comments: ON HOLD FOR CSCOPE albuterol sulfate 90 mcg/actuation HFA aerosol inhaler 2 inh inhalation Q6H PRN (Reason: shortness of breath or wheezing) guaifenesin 400 mg tablet 400 mg PO Q4H PRN (Reason: cough) insulin glargine [Lantus Solostar U-100 Insulin] 100 unit/mL (3 mL) insulin pen 8 unit subcut DAILY Patient Comments: Patient had 4 units (half her usual dose) this morning. polyethylene glycol 3350 [Miralax] 17 gram/dose powder 17 g PO QODAY acetaminophen 325 mg Tablet 650 mg PO Q4H PRN (Reason: Pain 1-5/10 Or Fever>100.7) magnesium hydroxide [Milk of Magnesia] 400 mg/5 mL suspension 30 ml PO DAILY PRN (Reason: constipation) benzonatate 100 mg capsule 100 mg PO TID PRN (Reason: cough) cholecalciferol (vitamin D3) 25 mcg (1,000 unit) capsule 25 mcg PO DAILY insulin lispro [Humalog KwikPen Insulin] 100 unit/mL insulin pen See Protocol subcut .TIDCM&HS Protocol: 6. Sliding Scale Insulin Custom Condition: 71-150mg/dl range Dose/Route: 0 Condition: 151-200 Dose/Route: 2 Condition: 201-250 Dose/Route: 4 Condition: 251-300 Dose/Route: 6 Condition: 301-350 Dose/Route: 8 Condition: 351-400 Dose/Route: 10 Protocol Text: Custom Sliding Scale Rx Instructions: TID with meals and at HS nystatin 100,000 unit/gram powder 1 applic topical BID PRN (Reason: skin irritation) potassium chloride 10 mEq capsule, extended release 20 meq PO DAILY melatonin 3 mg Tablet 6 mg PO QHS Qty: 0 0RF Held furosemide 20 mg tablet 40 mg PO QAM Hold Instructions: Resume on 11/20/24. Referrals / Follow Up: April Pacheco MD [Non-Staff -Ordering Privileges] - Delgado Amaro DO [Primary Care Provider] - Disposition Disposition (needs filled in before D/C Order can be placed): Senior Living Facility
--- NOTE | 2024-11-18 09:45 | CASEMGMT ---
Patient has order for discharge. Patient to return to [facility] under intermediate level of care. Discharge Offset Press Operator notified to complete discharge.
--- NOTE | 2024-11-18 09:49 | PHA.DC_ITS ---
Pharmacy MD Med Reconciliation Pharmacy Service has performed discharge medication reconciliation for this patient. Patient being discharged to [facility]. The patient's discharge medication list was reviewed for discrepancies and discrepancies were resolved. Medications at Discharge Home Medications cholecalciferol (vitamin D3) 25 mcg (1,000 unit) capsule 25 mcg PO DAILY 12/31/23 insulin lispro 100 unit/mL subcutaneous pen (Humalog KwikPen (U-100) Insulin) See Protocol subcut .TIDCM&HS 12/31/23 nystatin 100,000 unit/gram topical powder 1 applic topical BID PRN skin irritation 12/31/23 potassium chloride 10 mEq capsule,extended release 20 meq PO DAILY 12/31/23 melatonin 3 mg tablet 6 mg (2 x 3 mg) PO QHS #0 tabs 01/08/24 buspirone 5 mg tablet 5 mg PO BID 03/28/24 dapagliflozin propanediol 5 mg tablet (Farxiga) 5 mg PO DAILY 03/28/24 ferrous sulfate 325 mg (65 mg iron) tablet 325 mg PO QDAY 04/28/24 furosemide 20 mg tablet 40 mg PO QAM 04/28/24 Held on 11/18/24. Instructions: Resume on 11/20/24. pantoprazole 40 mg tablet,delayed release 40 mg PO QDAY #90 tabs 04/28/24 cyclobenzaprine 10 mg tablet 5 mg PO TID 06/10/24 acetaminophen 325 mg tablet 650 mg PO Q4H PRN Pain 1-5/10 Or Fever>100.7 06/30/24 albuterol sulfate 90 mcg/actuation aerosol inhaler 2 inh inhalation Q6H PRN shortness of breath or wheezing 06/30/24 guaifenesin 400 mg tablet 400 mg PO Q4H PRN cough 06/30/24 insulin glargine 100 unit/mL (3 mL) subcutaneous pen (Lantus Solostar U-100 Insulin) 8 unit subcut DAILY 06/30/24 polyethylene glycol 3350 17 gram/dose oral powder (Miralax) 17 g PO QODAY 06/30/24 apixaban 5 mg tablet (Eliquis) 5 mg PO BID #90 tabs 07/23/24 carvedilol 3.125 mg tablet 3.125 mg PO BID #180 tabs 07/31/24 docusate sodium 100 mg capsule 100 mg PO BID 10/09/24 venlafaxine 150 mg capsule,extended release 24 hr 150 mg PO QDAY 10/09/24 benzonatate 100 mg capsule 100 mg PO TID PRN cough 10/21/24 magnesium hydroxide 400 mg/5 mL oral suspension (Milk of Magnesia) 30 ml PO DAILY PRN constipation 10/21/24
--- NOTE | 2024-11-18 10:30 | CASEMGMT ---
Discharge Planning Discharge orders, signed med list, and transport time sent to [facility]. Physicians will transport pt by cot at 10:30a. Nursing, SW, pt, and her son (Randolph) updated. Bethany Colbert DC Planning Asst.
--- NOTE | 2024-11-18 11:27 | DS.PCM_ITS ---
Providers Date of Admission: 11/09/24 Primary Care Physician: Dr. Delgado Amaro, Consultations 11/11/24 10:39 Consult: Nephrology Routine Consulting Provider: Jeri Rowland Reason for Consult: SANDRA EMERGENT Consult: No Notified: Yes Date Notified: 11/11/24 Time Notified: 10:52 Method of Notification: Verbal 11/16/24 07:19 Consult: Gastroenterology Routine Consulting Provider: [facility] Reason for Consult: Need for EGD EMERGENT Consult: No Notified: Yes Date Notified: 11/16/24 Time Notified: 07:19 Method of Notification: Verbal Reason For Visit: HEART FAILURE EXACERBATION Diagnosis Discharge Diagnosis (1) Dysphagia: Status: Acute Code(s): R13.10 - Dysphagia, unspecified Medications at Discharge Home Medications cholecalciferol (vitamin D3) 25 mcg (1,000 unit) capsule 25 mcg PO DAILY 12/31/23 insulin lispro 100 unit/mL subcutaneous pen (Humalog KwikPen (U-100) Insulin) See Protocol subcut .TIDCM&HS 12/31/23 nystatin 100,000 unit/gram topical powder 1 applic topical BID PRN skin irritation 12/31/23 potassium chloride 10 mEq capsule,extended release 20 meq PO DAILY 12/31/23 melatonin 3 mg tablet 6 mg (2 x 3 mg) PO QHS #0 tabs 01/08/24 buspirone 5 mg tablet 5 mg PO BID 03/28/24 dapagliflozin propanediol 5 mg tablet (Farxiga) 5 mg PO DAILY 03/28/24 ferrous sulfate 325 mg (65 mg iron) tablet 325 mg PO QDAY 04/28/24 furosemide 20 mg tablet 40 mg PO QAM 04/28/24 Held on 11/18/24. Instructions: Resume on 11/20/24. pantoprazole 40 mg tablet,delayed release 40 mg PO QDAY #90 tabs 04/28/24 cyclobenzaprine 10 mg tablet 5 mg PO TID 06/10/24 acetaminophen 325 mg tablet 650 mg PO Q4H PRN Pain 1-5/10 Or Fever>100.7 06/30/24 albuterol sulfate 90 mcg/actuation aerosol inhaler 2 inh inhalation Q6H PRN shortness of breath or wheezing 06/30/24 guaifenesin 400 mg tablet 400 mg PO Q4H PRN cough 06/30/24 insulin glargine 100 unit/mL (3 mL) subcutaneous pen (Lantus Solostar U-100 Insulin) 8 unit subcut DAILY 06/30/24 polyethylene glycol 3350 17 gram/dose oral powder (Miralax) 17 g PO QODAY 06/30/24 apixaban 5 mg tablet (Eliquis) 5 mg PO BID #90 tabs 07/23/24 carvedilol 3.125 mg tablet 3.125 mg PO BID #180 tabs 07/31/24 docusate sodium 100 mg capsule 100 mg PO BID 10/09/24 venlafaxine 150 mg capsule,extended release 24 hr 150 mg PO QDAY 10/09/24 benzonatate 100 mg capsule 100 mg PO TID PRN cough 10/21/24 magnesium hydroxide 400 mg/5 mL oral suspension (Milk of Magnesia) 30 ml PO DAILY PRN constipation 10/21/24 Hospital Course Operations None Procedures EGD Summary of Care Provided Minutes Spent on Discharge: 36 Hospital Course: Per HPI: DARYN SHAH, is a 78-year-old female history of heart failure with reduced ejection fraction, diabetes, A-fib on Eliquis, COPD, GERD, depression and anxiety who presented [facility] ED 11/09/2024 due to increasing lower extremity swelling, weight gain, orthopnea and worsening dyspnea. She has a fairly recent diagnosis of heart failure and was on 20 mg of Lasix, due to these complaints the facility she has had increased her Lasix to 40 mg for the last 3 days however she has not had any improvement. Has a chronic cough from COPD but this has not changed at all from baseline and no other infectious symptoms. In ED temp 97.5, heart rate 102 with a blood pressure 126/81, respiratory rate 22 with pulse ox 98% on room air. CBC with hemoglobin 10.5, overall similar to previous, normal white blood cell count with no left shift. Patient with creatinine of 1.58 with a baseline of around 1.19, BNP 55,945 with chest x-ray showing possible asymmetric edema or consolidation in the right central lung and recommended follow-up imaging. Patient diagnosis heart failure exacerbation, given IV Lasix and hospitalist contacted for admission. Patient seen at bedside. She reports increased swelling in her lower extremities and shortness of breath over the past several days despite the increase in her Lasix, has a chronic cough that has not changed, denies any fevers or chills, ROS otherwise negative. Discussed with patient and she is supposed to follow-up at [facility] this coming Sunday for routine evaluation for options for her aortic stenosis. Discussed that she is vitally stable and it does seem reasonable to keep her here and give IV Lasix and discharge for her to follow-up outpatient even if her appointment would need to be moved versus transfer. Does not seem she needs emergent transfer for acute valve intervention given her stability. Patient agrees and prefers to stay here and follow-up outpatient with [place] on discharge. Hospital Course: 1. Acute on chronic systolic CHF exacerbation in the setting of chronic A- fib/essential HTN/SANDRA from overdiuresis/aortic stenosis?78-year-old female presented to the hospital with increasing shortness of breath orthopnea and lower extremity edema. She was started on Lasix but had some overdiuresis and developed an SANDRA which has resolved. She is currently maintaining her oxygen saturations on room air and is feeling a bit better. She does have aortic stenosis which needs to be worked up at an outside facility for valve replacement which she has agreed to on admission. Her blood pressure medications were changed from metoprolol to Coreg 3.125 mg p.o. twice daily. She is much improved though she did develop some oropharyngeal dysphagia and had an EGD which demonstrated esophagitis. Her GE junction was dilated and she is tolerating a diet a little bit better today. Gastroenterology recommended increasing her PPI to twice daily dosing which we did. Given her SANDRA will hold her Lasix for another couple of days on discharge and it to be restarted at SNF. I discussed with her the possibility for discharge today and she expressed understanding of the risks and benefits of going to the half-way and would like to go today if possible. Of note she had had an echo back in August which demonstrated an EF of 40 to 45% with some diastolic dysfunction RVSP of 60 mmHg with severe aortic valve stenosis. Because it was done so recently this was not repeated on this admission. It does appear that her course may have been complicated by UTI, she had a UA on 11/11/2024 that looks like a UTI however no cultures were obtained and she was empirically treated. She does not appear to be currently infected so would recommend outpatient monitoring. 2. Oropharyngeal dysphagia?she had an EGD on 11/17/2024 that demonstrated esophagitis without bleeding and stenosis with decreased motility. Her GE junction was dilated and she was able to tolerate a p.o. diet. We increased her PPI to twice daily dosing recommend outpatient follow-up with GI. 3. Type 2 diabetes, anxiety, depression, GERD, iron deficiency anemia all chronic medical conditions which complicate her care. Her home medications were continued where appropriate Physical Exam Narrative General: Drowsy, Oriented x3, Cooperative, No apparent distress HEENT: Atraumatic, PERRLA, EOMI, Normocephalic Oral: Moist Mucosa Neck: Supple, No JVD Lungs: Diminished, Normal air movement, No rhonchi, No wheeze, No rales Cardiovascular: Irregular rate and rhythm, Normal S1, Normal S2, No murmurs Abdomen: Soft, Non Tender, Non-Distended, No Hepato-splenomegaly Extremities: Edema, Capillary Refill Less than 3 Seconds Skin: No rashes, No breakdown Musculoskeletal: No Tenderness to Palpation of Joints or Extremities Neurological: No focal neurological deficits, moves all extremities Psych/Mental Status: Normal affect, appropriate Weight / BMI Weight Weight: 248 lb 14.43 oz Body Mass Index (BMI) 40.1 ABG / Lab / Microbiology Data 11/18/24 06:16 11/18/24 06:16 Laboratory: Laboratory Results - last 24 hr 11/17/24 11:57: POC Glucose 109 H 11/17/24 16:46: POC Glucose 114 H 11/17/24 22:22: POC Glucose 149 H 11/18/24 06:16: WBC 9.6, RBC 3.81 L, Hgb 10.3 L, Hct 34.3 L, MCV 90.0, MCH 27.0, MCHC 30.0 L, RDW Std Deviation 57.4 H, RDW Coeff of [place] 17.7 H, Plt Count 110 L, MPV 10.3, Immature Gran % (Auto) 0.300, Neut % (Auto) 65.2, Lymph % (Auto) 23.6, [place] % (Auto) 8.6, Eos % (Auto) 1.9, Baso % (Auto) 0.4, Absolute Neuts (auto) 6.2, Absolute Lymphs (auto) 2.25, Nucleated RBC % 0, Sodium 138, Potassium 3.8, Chloride 99, Carbon Dioxide 25.2, Anion Gap 14, BUN 45 H, Creatinine 1.40 H, E stim Creat Clear Calc 43.57 L, Est GFR (MDRD) Non-Af 39 L, BUN/Creatinine Ratio 32.2 H, Glucose 125 H, Calcium 8.7 11/18/24 06:20: POC Glucose 127 H D/C Instructions DC O2, CPAP, BIPAP Needs Home O2 Discharge instructions: No Meaningful Use Info Meaningful Use Meaningful Use Diagnoses (Choose all that apply): None applicable Discharge Plan Admission Admit Date/Time: 11/09/24 07:47 Attending Provider: Shabbir Ricks Primary Care Provider: Delgado Amaro Consulting Providers: Emily Cummings; Jeri Rowland; Edmundo Monge Discharge Orders/Prescriptions Prescriptions: Continued pantoprazole 40 mg tablet,delayed release (DR/EC) 40 mg PO QDAY Qty: 90 1RF ferrous sulfate 325 mg (65 mg iron) tablet 325 mg PO QDAY Patient Comments: ON HOLD FOR CSCOPE cyclobenzaprine 10 mg tablet 5 mg PO TID Eliquis 5 mg tablet 5 mg PO BID Qty: 90 3RF carvedilol 3.125 mg tablet 3.125 mg PO BID Qty: 180 3RF venlafaxine 150 mg capsule,extended release 24hr 150 mg PO QDAY docusate sodium 100 mg capsule 100 mg PO BID buspirone 5 mg tablet 5 mg PO BID dapagliflozin propanediol [Farxiga] 5 mg tablet 5 mg PO DAILY Patient Comments: ON HOLD FOR [facility]SCOPE albuterol sulfate 90 mcg/actuation HFA aerosol inhaler 2 inh inhalation Q6H PRN (Reason: shortness of breath or wheezing) guaifenesin 400 mg tablet 400 mg PO Q4H PRN (Reason: cough) insulin glargine [Lantus Solostar U-100 Insulin] 100 unit/mL (3 mL) insulin pen 8 unit subcut DAILY Patient Comments: Patient had 4 units (half her usual dose) this morning. polyethylene glycol 3350 [Miralax] 17 gram/dose powder 17 g PO QODAY acetaminophen 325 mg Tablet 650 mg PO Q4H PRN (Reason: Pain 1-5/10 Or Fever>100.7) magnesium hydroxide [Milk of Magnesia] 400 mg/5 mL suspension 30 ml PO DAILY PRN (Reason: constipation) benzonatate 100 mg capsule 100 mg PO TID PRN (Reason: cough) cholecalciferol (vitamin D3) 25 mcg (1,000 unit) capsule 25 mcg PO DAILY insulin lispro [Humalog KwikPen Insulin] 100 unit/mL insulin pen See Protocol subcut .TIDCM&HS Protocol: 6. Sliding Scale Insulin Custom Condition: 71-150mg/dl range Dose/Route: 0 Condition: 151-200 Dose/Route: 2 Condition: 201-250 Dose/Route: 4 Condition: 251-300 Dose/Route: 6 Condition: 301-350 Dose/Route: 8 Condition: 351-400 Dose/Route: 10 Protocol Text: Custom Sliding Scale Rx Instructions: TID with meals and at HS nystatin 100,000 unit/gram powder 1 applic topical BID PRN (Reason: skin irritation) potassium chloride 10 mEq capsule, extended release 20 meq PO DAILY melatonin 3 mg Tablet 6 mg PO QHS Qty: 0 0RF Held furosemide 20 mg tablet 40 mg PO QAM Hold Instructions: Resume on 11/20/24. Referrals / Follow Up: April Pacheco MD [Non-Staff -Ordering Privileges] - Delgado Amaro DO [Primary Care Provider] - Disposition Disposition (needs filled in before D/C Order can be placed): Residential Facility Charges/Coding Visit Charges Inpatient E&M: 75933 Disch Hosp >30min
== END 2024-11-18 11:06 | disposition skilled nursing facility (03) | DRG 291 ==
LOC: ED 06:42 → PCU 07:49
PROVIDERS: Anesthesiology; Family Medicine; Internal Medicine; Internal Medicine Gastroenterology; Internal Medicine Nephrology; Nurse Practitioner Adult Health; Admitting Provider Internal Medicine; Emergency Provider Emergency Medicine; Visit Provider Family Medicine
PROC: 0DJ08ZZ Inspection of Upper Intestinal Tract, Via Natural or Artificial Opening Endoscopic (ICD-10-PCS; CPT 43235; principal; 2024-11-17 13:25)
DX: I11.0 Hypertensive heart disease with heart failure (principal); I50.23 Acute on chronic systolic (congestive) heart failure; E87.20 Acidosis, unspecified; N17.9 Acute kidney failure, unspecified; I48.20 Chronic atrial fibrillation, unspecified; R13.12 Dysphagia, oropharyngeal phase; E11.9 Type 2 diabetes mellitus without complications; D50.9 Iron deficiency anemia, unspecified; Z66 Do not resuscitate; Z79.01 Long term (current) use of anticoagulants; J44.9 Chronic obstructive pulmonary disease, unspecified; I08.3 Combined rheumatic disorders of mitral, aortic and tricuspid valves; F32.A Depression, unspecified; E78.00 Pure hypercholesterolemia, unspecified; Z79.4 Long term (current) use of insulin; E87.5 Hyperkalemia; K29.70 Gastritis, unspecified, without bleeding; F41.9 Anxiety disorder, unspecified; K21.00 Gastro-esophageal reflux disease with esophagitis, without bleeding; Z79.84 Long term (current) use of oral hypoglycemic drugs; I49.3 Ventricular premature depolarization; Z90.49 Acquired absence of other specified parts of digestive tract; Z98.51 Tubal ligation status
CPT/HCPCS: 36415; 71045; 74230; 76770; 80048; 80053; 80061; 81001; 82570; 82962; 83735; 83880; 84156; 84300; 85025; 88305; 92526; 92610; 92611; 93005; 94640; 94668; 97162; 97166; 99252; 99285; A4216; C1769; G0463; J1938; J2405

== ENCOUNTER 2024-11-19 08:36 | Inpatient (IN) | payer MEDICARE, SELFPAY ==
[2024-11-19] VITALS (21 sets, daily range): BP systolic 90–136; BP diastolic 37–86; PULSE 64–118; RESP 16–26; TEMP 36.4–37.1; O2SAT 92–100; BMI 40.8
--- NOTE | 2024-11-19 08:43 | EDS_ITS ---
HPI History of Present Illness Chief Complaint: Alt LOC [facility] Medical History Post-menopausal History of ulceration Gastric reflux History of stress test History of irregular heartbeat Aortic stenosis Lives in alf Wears glasses Wears partial dentures Marijuana use Discoloration of skin Open wound Insulin dependent diabetes mellitus Uses wheelchair Arthritis History of renal disease Low iron High cholesterol Back pain Dietary restriction History of GI bleed Non-smoker Chronic cough History of edema History of echocardiogram Cardiology follow-up encounter History of CHF (congestive heart failure) History of atrial fibrillation Palpitations Magnesium deficiency Diarrhea Asthma Vertebral osteomyelitis Discitis of thoracic region Intractable back pain Syndrome of inappropriate secretion of antidiuretic hormone Age-related incipient cataract of both eyes Iron deficiency anemia Generalized muscle weakness Morbid obesity with BMI of 40.0-44.9, adult Vitamin D deficiency Venous stasis ulcer with varicose veins Renal lesion Primary osteoarthritis of both knees History of colonic polyps Neurodermatitis Lymphedema of leg Lumbar facet arthropathy Benign essential hypertension Anemia Anxiety Depression CHF (congestive heart failure) A-fib COPD (chronic obstructive pulmonary disease) Kidney disease Diabetes Hyperlipidemia History of ESBL E. coli infection History of infection with vancomycin resistant Enterococcus (VRE) Altered mental status Home Medications ?Medication ?Instructions ?Recorded ?Last Taken ?Type cholecalciferol (vitamin D3) 25 25 mcg PO DAILY Unknown History mcg (1,000 unit) capsule insulin lispro 100 unit/mL See Protocol subcut .TIDCM& HS 12/31/23 Unknown History subcutaneous pen (Humalog KwikPen (U-100) Insulin) nystatin 100,000 unit/gram topical 1 applic topical BI D PRN skin 12/31/23 Unknown History powder irritation potassium chloride 10 mEq 20 meq PO DAILY 12/31/23 Unk nown History capsule,extended release melatonin 3 mg tablet 6 mg (2 x 3 mg) PO QHS #0 ta bs 01/08/24 Unknown Rx buspirone 5 mg tablet 5 mg PO BID 03/28/24 Unknown History dapagliflozin propanediol 5 mg 5 mg PO DAILY 03/28/24 Unknown History tablet (Farxiga) ferrous sulfate 325 mg (65 mg 325 mg PO QDAY 04/28/24 Unknown History iron) tablet furosemide 20 mg tablet 40 mg PO QAM 04/28/24 Unknow n History Held on 11/18/24. Instructions: Resume on 11/20/24. pantoprazole 40 mg tablet,delayed 40 mg PO QDAY #90 ta bs 04/28/24 Unknown Rx release cyclobenzaprine 10 mg tablet 5 mg PO TID 06/10/24 Unkn own History acetaminophen 325 mg tablet 650 mg PO Q4H PRN Pain 1- Or 06/30/24 Unknown History Fever>100.7 albuterol sulfate 90 mcg/actuation 2 inh inhalation Q6 H PRN shortness 06/30/24 Unknown History aerosol inhaler of breath or wheezing guaifenesin 400 mg tablet 400 mg PO Q4H PRN cough 06/08 08/01 Unknown History insulin glargine 100 unit/mL (3 8 unit subcut DAILY 07/01/24 History mL) subcutaneous pen (Lantus Solostar U-100 Insulin) polyethylene glycol 3350 17 17 g PO QODAY 06/30/24 Unk nown History gram/dose oral powder (Miralax) apixaban 5 mg tablet (Eliquis) 5 mg PO BID #90 tabs 10/23/24 Rx carvedilol 3.125 mg tablet 3.125 mg PO BID #180 tabs 0 07/31/24 Unknown Rx docusate sodium 100 mg capsule 100 mg PO BID 10/09/24 Unknown History venlafaxine 150 mg 150 mg PO QDAY 10/09/24 Unkn own History capsule,extended release 24 hr benzonatate 100 mg capsule 100 mg PO TID PRN cough Unknown History magnesium hydroxide 400 mg/5 mL 30 ml PO DAILY PRN con stipation 10/21/24 Unknown History oral suspension (Milk of Magnesia) Allergy/AdvReac Type Severity Reaction Status Date / Time No Known Allergies Allergy Verified 11/19/24 08:37 Family History Mother Alzheimer dementia Breast cancer Heart disease Brother Cystic fibrosis Surgical History History of colonoscopy S/P laminectomy History of tubal ligation Hx of cholecystectomy H/O section Social History Smoking Status: Never smoker alcohol intake: never EXAM Physical Exam Const Vital Signs: 11/19/24 08:37 11/19/24 08:41 11/19/24 09:36 Temperature 97.6 F L 97.8 F Temperature Source Oral Oral Pulse Rate 115 H 108 H 78 Respiratory Rate 22 H 26 H 16 Blood Pressure 105/85 H 105/85 H 106/78 Blood Pressure Mean 91 91 87 Pulse Ox 99 98 97 Oxygen Delivery Method Room Air Room Air Room Air 11/19/24 09:41 11/19/24 10:00 11/19/24 11:03 Temperature 98.7 F 98.4 F Temperature Source Oral Oral Pulse Rate 89 78 101 H Respiratory Rate 18 16 21 H Blood Pressure 104/78 103/71 136/37 H Blood Pressure Mean 86 81 70 Pulse Ox 99 98 98 Oxygen Delivery Method Room Air Room Air 11/19/24 12:00 11/19/24 12:53 11/19/24 13:00 Temperature 98.4 F 97.9 F Temperature Source Oral Oral Pulse Rate 64 91 94 Respiratory Rate 16 16 18 Blood Pressure 104/78 108/78 129/78 H Blood Pressure Mean 86 88 95 Pulse Ox 98 99 96 Oxygen Delivery Method Room Air Room Air Room Air 11/19/24 14:00 11/19/24 15:19 11/19/24 15:34 Temperature 98.1 F Temperature Source Pulse Rate 106 H 100 100 Respiratory Rate 18 20 H 20 H Blood Pressure 96/80 96/80 Blood Pressure Mean 85 85 Pulse Ox 95 100 100 Oxygen Delivery Method Room Air 11/19/24 16:19 11/19/24 17:00 Temperature Temperature Source Pulse Rate 100 102 H Respiratory Rate 24 H 22 H Blood Pressure 92/74 97/78 Blood Pressure Mean 80 84 Pulse Ox 97 97 Oxygen Delivery Method MDM MDM MDM Narrative Medical decision making narrative: HISTORY OF PRESENT ILLNESS: Chief complaint: Confusion 78-year-old female history of A-fib, chronic anticoagulation, CHF, hypertension, SIADH, COPD, type 2 diabetes presents with concern for confusion. History is provided by EMS and the patient. She states she does not feel confused. Per alf report patient is having poor cognition and hallucinating overnight. Per patient she has no symptoms including chest pain or shortness of breath per practical nursing instructor patient's been more edematous and swollen and more short of breath recently. REVIEW OF SYSTEMS: Pertinent positives: Altered mental status Pertinent negatives: Headache, chest pain, head trauma, cough PHYSICAL EXAM: Nursing triage notes reviewed, Vital signs reviewed Constitutional: please see main campus medical center HENT: MMM Eyes: Pupils equal round and reactive to light, Extraocular muscles intact Neck: No stridor, no JVD, full neck ROM Lungs: Clear to auscultation, No wheezing or rales. No increased work of breathing, no conversational dyspnea, no accessory muscle use, no nasal flaring. No respiratory distress noted Heart: Regular rate and rhythm, No murmurs, No rubs and No gallops, 2+ distal pulses (radial, femoral, posterior tibial) in all extremities Abdomen: Soft, there is no tenderness, rigidity, rebound or guarding, no obvious peritoneal signs, no palpable pulsatile abdominal masses, no auscultated abdominal bruit : No CVAT Extremities: 1-2+ pitting edema bilateral lower extremities Neuro: No new focal neurological deficits, cranial nerves II through XII intact, 5/5 strength in all present extremities. Intact sensation to light touch in all present extremities, 2+ reflexes bilateral patella tendons. Skin: Scattered bruising bilateral upper extremities, skin is cool to touch MEDICAL DECISION MAKING: Chief Complaint: please see HPI External records reviewed: Recent hospitalization for SANDRA discharged on 11/18/2024. Heart failure exacerbation. Baseline mental status alert and oriented x 3 per discharge summary from 11/18/2024 Factors affecting care: As per [facility] Social determinants of health: intermediate resident History obtained from others: EMS Consults: Internal medicine (Dr. Cummings), Cardiology (Dr. Fong), [facility] transfer centers [facility] Narrative: The patient was initially tachycardic with a heart rate of 115, tachypneic with respirate 22, afebrile Nontoxic-appearing saturating 98% on room air. Exam without focal deficits. Patient was alert and orient x 3. Patient is not sure why she is in the emergency department. She states she will go through the workup however to make sure what was happening at the facility was not something more concerning. I considered the following differential diagnosis: ICH, metabolic or infectious encephalopathy, dehydration, sepsis, arrhythmia, CO2 retention, CHF exacerbation I obtained a broad lab and imaging work to further determine if the patient was suffering from a life-threatening etiology. ALL IMAGES (IF OBTAINED) HAVE BEEN PERSONALLY REVIEWED AND INTERPRETED BY MYSELF. EKG with rate controlled A-fib rate 91, left axis deviation, normal intervals, occasional PVCs, no STEMI During the patient's ED course it was difficult to obtain lab access. Multiple IV access attempts were made however were unsuccessful obtaining labs. Upon reassessment vital signs improved without intervention with a blood pressure 106/78, heart rate 78, respiratory rate 16, afebrile saturating 98% room. Labs showed no leukocytosis, stable anemia, noted thrombocytopenia is improved from baseline VBG without evidence of significant metabolic acidosis, bicarb greater than 15 making DKA less likely BMP without significant electrolyte abnormalities,, noted SANDRA on CKD, Urinalysis shows no evidence of urinary inflammation suggestive of UTI Lipase is wnl indicating no pancreatic inflammation. BNP elevated consistent with heart failure however this is downtrending from prior study LFTs are hyperbilirubinemia which is increasing from prior however the patient's liver enzymes and alk phos are downtrending from prior Initial troponin elevated consistent with myocardial ischemia likely demand ischemia from CKD, CHF exacerbation Chest x-ray was read and reviewed personally so showed worsening pulmonary edema, cardiomegaly and signs of heart failure. CT brain negative for ICH CT scan abdomen pelvis with no evidence of intra-abdominal infection Initial lactate elevated. Patient appeared nontoxic had no white blood cell count or fever and no source of infection initial chest x-ray or urinalysis. In lieu of broad-spectrum antibiotics, blood cultures urine culture and a 30 cc/kg bolus I decide to repeat lactate initially. Repeat lactic continue to uptrend at 5.5 which then prompted sepsis evaluation I continue to hold a 30 cc/kg bolus given the patient's heart failure history and history of severe aortic valve stenosis as to not cause significant cardiogenic shock or fluid overload The synthesis of the patient's history, physical exam, labs image suggest an unknown cause of severe elevated lactate. I suspect this could be from poor liver function versus endorgan hypoperfusion including cardiogenic shock, septic shock or cardiorenal syndrome. Discussed further with our hospitalist who felt reticent about admitting the patient which can be hospital as we do not have definitive cardiothoracic surgery or cardiology care here to best fluid resuscitate or diurese the patient. If she decompensated do not have definitive surgical backup in the form of aortic valve replacement if necessary. Given this I made arrangements to transfer the patient to [facility]. Awaiting callback at this time. Discussed that 155. [facility] stated they were full. Will await more availability before callback and Dr. Isaac report. In the meantime discussed our facility environmental technician here Dr. Fong he noted the patient would benefit from transfer to higher level of care secondary to needing definitive evaluation for appropriateness for aortic valve replacement and gentle flow resuscitation if the patient's procalcitonin was elevated. He noted if the patient's procalcitonin was normal then he would not give fluids. Discussed with [facility] ICU Dr. Conn who recommended giving a 250 cc bolus. Recommended the patient be admitted to a regular medical floor. Currently awaiting for medical floor hospitalist to callback. Will sign out to p.m. physician for aminta to aminta report. The patient and/or family, caregivers express understanding. The patient and/or family, caregivers agrees with the plan. Shared decision making: I will have a discussion with the patient and or visitors regarding risk/benefits of further testing or admission. They will be made aware of of the risk/benefits inherent in this decision they will be given the opportunity to voice understanding. Total critical care time today provided was at least 0 minutes. This excludes separately billable procedures. Critical care time (if documented) is secondary to the patient having high probability of clinically significant/life threatening deterioration in the patient's condition which required my urgent intervention. Impression: 1. Transient alteration in awareness 2. Elevated lactate 3. SANDRA on CKD 4. Hyperbilirubinemia 5. Thrombocytopenia Dispo: Transfer to [facility] for definitive care This note was generated with [employer] dictation software. It may contain incorrect words, spelling, and punctuation that were not noted in review of the chart prior to signing. Lab Data Attestation: I reviewed the patient's lab results. Labs: Laboratory Results - last 24 hr 11/19/24 11/19/24 11/19/24 09:54 10:35 11:43 WBC 9.6 RBC 3.97 L Hgb 10.6 L Hct 34.6 L MCV 87.2 MCH 26.7 L MCHC 30.6 L RDW Std Deviation 55.1 H RDW Coeff of Josiah 17.5 H Plt Count 131 L MPV 10.6 Immature Gran % (Auto) 0.500 Neut % (Auto) 65.5 Lymph % (Auto) 25.8 Dupage % (Auto) 7.5 Eos % (Auto) 0.4 Baso % (Auto) 0.3 Absolute Neuts (auto) 6.3 Absolute Lymphs (auto) 2.46 Nucleated RBC % 0.2 Sodium 137 Potassium 3.6 Chloride 96 L Carbon Dioxide 22.0 Anion Gap 19 H BUN 54 H Creatinine 1.88 H Estim Creat Clear Calc 32.74 L Est GFR (MDRD) Non-Af 27 L BUN/Creatinine Ratio 28.5 H Glucose 136 H Lactic Acid 5.0 H* 4.2 H* Calcium 9.2 Total Bilirubin 1.32 H AST 323 H ALT 527 H Alkaline Phosphatase 198 [place] [address] H Total Protein 6.2 Albumin 3.4 Globulin 2.8 Albumin/Globulin Ratio 1.2 Lipase 11 L Urine Color Yellow Urine Clarity Sl. Cloudy Urine pH 5.0 Ur Specific [place] 1.020 Urine Protein 30 H Urine Glucose (UA) Normal Urine Ketones 5 H Urine Occult Blood Negative Urine Nitrite Negative Urine Bilirubin Negative Urine Urobilinogen 4 H Ur Leukocyte Esterase 25 H Urine RBC 0 SEEN Urine WBC 0-5 SEEN Ur Squamous Epith Cells 0-5 SEEN Amorphous Sediment 2+ Urine Bacteria 0 SEEN Urine Mucus 0 SEEN POC Glucose 11/19/24 11/19/24 11/19/24 11:44 13:33 16:17 WBC RBC Hgb Hct MCV MCH MCHC RDW Std Deviation RDW Coeff of Josiah Plt Count MPV Immature Gran % (Auto) Neut % (Auto) Lymph % (Auto) [place] % (Auto) Eos % (Auto) Baso % (Auto) Absolute Neuts (auto) Absolute Lymphs (auto) Nucleated RBC % Sodium Potassium Chloride Carbon Dioxide Anion Gap BUN Creatinine Estim Creat Clear Calc Est GFR (MDRD) Non-Af BUN/Creatinine Ratio Glucose Lactic Acid 5.5 H* 4.1 H* Calcium Total Bilirubin AST ALT Alkaline Phosphatase Troponin T High Sens 172 H* NT pro BNP II Total Protein Albumin Globulin Albumin/Globulin Ratio Lipase Urine Color Urine Clarity Urine pH Ur Specific [place] Urine Protein Urine Glucose (UA) Urine Ketones Urine Occult Blood Urine Nitrite Urine Bilirubin Urine Urobilinogen Ur Leukocyte Esterase Urine RBC Urine WBC Ur Squamous Epith Cells Amorphous Sediment Urine Bacteria Urine Mucus POC Glucose 92 ABG Data ABG results: ABG 11/19/24 10:11 Specimen Type SOLIS Sample Site Not entered VBG pH 7.48 H VBG pO2 178 H VBG HCO3 25 VBG Total CO2 26 VBG O2 Sat (Calc) 100 H VBG Base Excess 2 POC Mix VBG pCO2 Pt Tmp 33.9 L O2 Delivery Device Not entered Radiography Diagnostic Testing: Clinical Impression(s) from Imaging Studies Chest X-Ray 11/19/24 10:10 IMPRESSION: Cardiomegaly and CHF with bibasilar atelectasis. Tiny bilateral pleural effusions. Reading Location: [id number] Brain CT 11/19/24 10:13 IMPRESSION: CHRONIC CHANGES. NO ACUTE FINDINGS. Reading Location: [id number] Abdomen/Pelvis CT 11/19/24 11:08 IMPRESSION: Bilateral pleural effusions with bibasilar dependent atelectasis and/or infiltrates. Diffuse subcutaneous edema of the abdominal wall. Reading Location: [facility] Discharge Plan Triage Chief Complaint: Alt LOC ED Provider: Sher Yost Dx/Rx/DC Orders Prescriptions: No Action pantoprazole 40 mg tablet,delayed release (DR/EC) 40 mg PO QDAY Qty: 90 1RF ferrous sulfate 325 mg (65 mg iron) tablet 325 mg PO QDAY Patient Comments: ON HOLD FOR CSCOPE furosemide 20 mg tablet 40 mg PO QAM cyclobenzaprine 10 mg tablet 5 mg PO TID Eliquis 5 mg tablet 5 mg PO BID Qty: 90 3RF carvedilol 3.125 mg tablet 3.125 mg PO BID Qty: 180 3RF venlafaxine 150 mg capsule,extended release 24hr 150 mg PO QDAY docusate sodium 100 mg capsule 100 mg PO BID buspirone 5 mg tablet 5 mg PO BID dapagliflozin propanediol [Farxiga] 5 mg tablet 5 mg PO DAILY Patient Comments: ON HOLD FOR CSCOPE albuterol sulfate 90 mcg/actuation HFA aerosol inhaler 2 inh inhalation Q6H PRN (Reason: shortness of breath or wheezing) guaifenesin 400 mg tablet 400 mg PO Q4H PRN (Reason: cough) insulin glargine [Lantus Solostar U-100 Insulin] 100 unit/mL (3 mL) insulin pen 8 unit subcut DAILY Patient Comments: Patient had 4 units (half her usual dose) this morning. polyethylene glycol 3350 [Miralax] 17 gram/dose powder 17 g PO QODAY acetaminophen 325 mg Tablet 650 mg PO Q4H PRN (Reason: Pain 1-5/10 Or Fever>100.7) magnesium hydroxide [Milk of Magnesia] 400 mg/5 mL suspension 30 ml PO DAILY PRN (Reason: constipation) benzonatate 100 mg capsule 100 mg PO TID PRN (Reason: cough) cholecalciferol (vitamin D3) 25 mcg (1,000 unit) capsule 25 mcg PO DAILY insulin lispro [Humalog KwikPen Insulin] 100 unit/mL insulin pen See Protocol subcut .TIDCM&HS Protocol: 6. Sliding Scale Insulin Custom Condition: 71-150mg/dl range Dose/Route: 0 Condition: 151-200 Dose/Route: 2 Condition: 201-250 Dose/Route: 4 Condition: 251-300 Dose/Route: 6 Condition: 301-350 Dose/Route: 8 Condition: 351-400 Dose/Route: 10 Protocol Text: Custom Sliding Scale Rx Instructions: TID with meals and at HS nystatin 100,000 unit/gram powder 1 applic topical BID PRN (Reason: skin irritation) potassium chloride 10 mEq capsule, extended release 20 meq PO DAILY melatonin 3 mg Tablet 6 mg PO QHS Qty: 0 0RF Primary Care Provider: Delgado Amaro Referrals: Delgado Amaro DO [Primary Care Provider] - Print Language: Polish
--- NOTE | 2024-11-19 09:07 | EKG12_ITS ---
Test Reason : Blood Pressure : */* mmHG Vent. Rate : 91 BPM Atrial Rate : * BPM P-R Int : * ms QRS Dur : 118 ms QT Int : 350 ms P-R-T Axes : * -37 83 degrees QTcB Int : 430 ms Atrial fibrillation Left axis deviation Low voltage QRS Anterolateral infarct , age undetermined Abnormal ECG When compared with ECG of 17-Nov-2024 04:26, No significant change was found Confirmed by FAINA REHMAN, BARBARA ([id number]), book or script editor CLIF CANALES ([id number]) on 11/25/2024 6:18:09 AM Referred By: Confirmed By: BARBARA EISENBERG MD
[2024-11-19 10:06] LABS: Hematocrit 34.6 % (37-47); Hemoglobin 10.6 g/dL (12.0-15.0); Immature Granulocytes Count 0.050 X10^3/uL (0.0-0.0); Mean Corp Hgb Conc 30.6 g/dL (32-36); Mean Corpuscular Volume 87.2 fL (81-99); Mean Platelet Vol. 10.6 fl (6.2-12.0); NRBC Flagged by Analyzer 0.2 % (0-5); Platelet Count 131 K/mm3 (150-450); RBC Distribution Width CV 17.5 % (11.6-14.6); RBC Distribution Width SD 55.1 fl (35.1-43.9); Red Blood Count 3.97 M/mm3 (4.2-5.4); White Blood Count 9.6 K/mm3 (4.4-11.0)
--- NOTE | 2024-11-19 10:10 | RAD_ITS ---
PROCEDURE: CHEST 1 VIEW (PORTABLE) 11/19/2024 REASON FOR EXAM: ALTERED MENTAL STATUS TECHNIQUE: Frontal view of the chest. COMPARISON: Prior study dated November 13, 2024 FINDINGS: Hardware: EKG electrodes are seen Heart: Moderate cardiomegaly Lungs: Vascular congestion and CHF with small bilateral pleural effusions and bibasilar atelectasis. Bones: Degenerative changes are identified within the thoracic spine. Other: RAD/Chest 1 View (Portable) IMPRESSION: Cardiomegaly and CHF with bibasilar atelectasis. Tiny bilateral pleural effusions. Reading Location: [id number]
--- NOTE | 2024-11-19 10:13 | CT_ITS ---
PROCEDURE: BRAIN/HEAD WITHOUT CONTRAST 11/19/2024 REASON FOR EXAM: ALTERED MENTAL STATUS Increased confusion. TECHNIQUE: BRAIN/HEAD WITHOUT CONTRAST Coronal and Sagittal reconstruction series were provided. One or more dose reduction techniques were used (e.g., Automated exposure control, adjustment of the mA and/or kV according to patient size, use of iterative reconstruction technique. RADIATION DOSE SUMMARY: CTDlvol: 44.99 mGy DLP: 846.73 mGycm COMPARISON: None FINDINGS: Brain: Low density in the periventricular white matter suggests mild chronic small vessel ischemic changes. CSF Spaces: Mild generalized cerebral atrophy Sinuses/Mastoids: Clear at visualized levels Bones: Hyperostosis frontalis interna. CT/Brain/Head without Contrast IMPRESSION: CHRONIC CHANGES. NO ACUTE FINDINGS. Reading Location: [id number]
[2024-11-19 10:15] LABS: SITE Not entered; VBG BASE EXCESS 2 mmol/L (-1.0-3.5); VBG PO2 178 mmHg (25-40); VBG SO2 100 % (50-70); VBG TCO2 26 mmol/L (23-33)
[2024-11-19 10:26] LABS: AST(SGOT) 323 U/L (<=31); Alanine Aminotransfer ALT/SGPT 527 U/L (<=34); Albumin, Serum 3.4 g/dL (3.4-4.8); Alkaline Phosphatase 198 U/L (35-104); Anion Gap 19 (5-15); BUN 54 mg/dL (4-19); BUN/Creat Ratio 28.5 RATIO (10-20); Calcium,Total 9.2 mg/dL (7.6-11.0); Carbon Dioxide 22.0 mmol/L (21.0-32.0); Chloride 96 mmol/L (98-108); Estimated Creatinine Clearance 32.74 ml/min (50-250); Globulin 2.8 g/dL (2.2-4.2); Glucose 136 mg/dL (70-99); Lipase 11 U/L (13-75); Potassium 3.6 mmol/L (3.3-5.1)
[2024-11-19 10:40] LABS: Mucous, Urine 0 SEEN /hpf (<or=2+); Red Blood Cells-Urine 0 SEEN /hpf (0-5)
[2024-11-19 10:51] LABS: Color, Urine Yellow (Yellow); Glucose, Dipstick Normal (Normal); Ketone-Dipstick 5 mg/dl (Negative); Leukocyte Esterase-Dipstick 25 /ul (Negative); Nitrite-Dipstick Negative (Negative); Occult Blood-Urine Negative /ul (Negative); Protein-Dipstick 30 mg/dl (Negative); Specific Gravity, Urine 1.020 (1.002-1.030); Urine Bilirubin Dipstick Negative (Negative)
[2024-11-19 10:57] LABS: Squamous Epithelial Cells - UA 0-5 SEEN /hpf (5-10)
--- NOTE | 2024-11-19 11:08 | CT_ITS ---
PROCEDURE: ABDOMEN/PELVIS WITHOUT CONT 11/19/2024 REASON FOR EXAM: ELEVATED LACTIC R/O INTRA-ABDOMINAL INFECTION TECHNIQUE: ABDOMEN/PELVIS WITHOUT CONT Noncontrast technique limits evaluation of the abdominal and pelvic viscera. Coronal and Sagittal reconstruction series were provided. One or more dose reduction techniques were used (e.g., Automated exposure control, adjustment of the mA and/or kV according to patient size, use of iterative reconstruction technique). RADIATION DOSE SUMMARY: CTDlvol: 23.68 mGy DLP: 1153.71 mGycm COMPARISON: None FINDINGS: Lung bases: Small bilateral pleural effusions with bibasilar atelectasis and/or consolidation. Liver: Normal size. No obvious mass. Gallbladder: Surgically absent. Spleen: Normal size. Pancreas: Diffuse fatty atrophy. Adrenals: Unremarkable Kidneys: No urolithiasis. No hydronephrosis. Bladder: Unremarkable Reproductive Organs: Normal uterine size and contour. Ovaries are unremarkable. Bowel: Oral contrast is seen within the right hemicolon from prior examination. Appendix: The appendix is not identified. There is no inflammatory process identified in the right lower quadrant to suggest appendicitis. Lymph nodes: Unremarkable. Vasculature: Diffuse atherosclerotic plaques of the aorta and major visceral branches. Peritoneum / Retroperitoneum: There is evidence of diffuse subcutaneous edema. Bones: Degenerative changes of the spine. CT/Abdomen/Pelvis without Cont IMPRESSION: Bilateral pleural effusions with bibasilar dependent atelectasis and/or infiltr ates. Diffuse subcutaneous edema of the abdominal wall. Reading Location: [facility]
[2024-11-19] MEDS: 0.9% Normal Saline (1000mL) 1,000 ML 999 ML IV (13:18)
[2024-11-19] MEDS: Piperacil/Tazobactam 4.5 GM in 0.9% Normal Saline (100mL MB+) 100 ML IV (13:21)
[2024-11-19 14:00] LABS: Reflex Lactate? Y
[2024-11-19] MEDS: Vancomycin HCl 2,000 MG in 0.9% Normal Saline (500mL Bag) 500 ML 250 MG IV (14:06)
[2024-11-19 14:43] LABS: Pro- Brain NATRIURETIC PEPTIDE 45597 pg/mL (<=1800)
--- NOTE | 2024-11-19 15:26 | ED.RN ---
Dr Yost notified of critical lactic.
[2024-11-19 15:50] LABS: Reflex Lactate? Y
[2024-11-19 16:55] LABS: Troponin T High Sensitivity 172 ng/L (<=14)
--- NOTE | 2024-11-19 16:55 | ED.RN ---
Dr Yost notified of critical troponin
[2024-11-19 17:25] LABS: Procalcitonin 0.10 ng/mL (<=0.10)
[2024-11-19 19:15] LABS: Troponin T High Sens 2 HR 182 ng/L (<=14)
[2024-11-19 21:37] LABS: Troponin T High Sens 4 HR 183 ng/L (<=14)
--- NOTE | 2024-11-19 21:39 | PCA ---
THIS EDGE PLUGGER CALLED [facility] FOR STATUS UPDATE ABOUT PT TRANSFER. THELMA WITH THE TRANSFER LINE STATED NOT TONIGHT, POSSIBLY TOMORROW, HOWEVER IT MIGHT POSSIBLY BE A FEW DAYS
[2024-11-20] VITALS (17 sets, daily range): BP systolic 66–125; BP diastolic 40–91; PULSE 64–115; RESP 18–32; TEMP 36.1–36.8; O2SAT 92–98; BMI 40.6
--- NOTE | 2024-11-20 03:00 | PCM.HP.STD ---
[facility] - General General Date of Admission: 11/20/24 Date of Service: 11/20/24 Chief Complaint: AMS. HPI Narrative DARYN SHAH, is a 78 F with a past medical history of essential hypertension; on carvedilol twice daily and furosemide (which was recently held), morbid obesity (class III); with BMI of 40.8 this admission, DM-2; of unknown control on dapagliflozin, insulin lispro 3 times daily and insulin glargine 8 units subcu daily, chronic atrial fibrillation; on apixaban twice daily, chronic systolic CHF; reduced LVEF of ~40-45% with diastolic dysfunction, moderate mitral valve insufficiency, moderate tricuspid valve insufficiency and severe aortic valve stenosis with RSVP of 62, chronic lower extremity lymphedema, history of tobacco abuse; with subsequent asthma/COPD, history of SIADH, history of vertebral osteomyelitis and discitis of the thoracic region, history of ESBL E. coli and VRE infections, history of vitamin D deficiency, depression with anxiety; on buspirone twice daily plus venlafaxine, JESI; on ferrous sulfate, chronic constipation; on polyethylene glycol daily, docusate twice daily plus as needed magnesium hydroxide, GERD; with oropharyngeal dysphagia and esophagitis on EGD done November 11, 2024 + known history of PUD on pantoprazole, history of muscle spasms; on cyclobenzaprine 3 times daily, OA; s/p laminectomy with chronic back pain and recent admission here from November 09, 2024 to November 18, 2024 for treatment of AE of chronic systolic CHF; with reduced LVEF and corresponding elevated NT pro-BNP II of 55,945 pg/mL complicated by SANDRA; in the setting of known CKD; stage IIIb-IV presumed to be due to worsening aortic stenosis with patient suspected to be developing cardio-renal syndrome with plan for patient to follow-up at [facility] who re-presents to [facility] ER complaining of altered mental status. Ms. Shah is not a fully reliable historian at this time so information was gathered from chart, medical staff and computer. According to the records the original ER physician who saw the patient on the morning of November 19, 2024 noted patient did not feel confused but detention report claimed patient was having poor cognition and hallucinating overnight. She was also noted to become globally more edematous and more short of breath so she was sent back in for further evaluation and treatment. Due to the patient's severe aortic stenosis and recent SANDRA it was decided she was to transfer to [facility] with patient accepted - but with no bed available for ~18 hours so the hospitalist service was contacted to admit this patient until she can be safely transferred to a tertiary care center. ER physician originally noted ~1-2+ bilateral lower extremity pitting edema with scattered bruising over upper extremities. In the ER she was noted to have worsening SANDRA with serum creatinine of 1.88 mg/dL present on admission (up from 1.4 mg/dL yesterday) in addition to Lactic Acidosis of 4.1 mmol/L and elevated NT pro-BNP II of 45,597 pg/mL and elevated initial troponin T of 172 ng/L both present on admission suspected to be due to Acute Cardiac Strain with a CXR that revealed cardiomegaly and CHF with bibasilar atelectasis and tiny bilateral pleural effusions and CT scan of the abdomen/pelvis without contrast that revealed bilateral pleural effusions with bibasilar dependent atelectasis and/or infiltrates with diffuse subcutaneous edema of the abdominal wall with head CT without contrast that revealed chronic changes with no acute findings complicated by clinical evidence of Metabolic Encephalopathy. She was then diagnosed with AE of chronic systolic CHF; reduced LVEF in the setting of previously known Severe Aortic Stenosis and SANDRA; in the setting of previously known CKD; stage IIIb-IV due to suspected evolving Cardio-Renal Syndrome in addition to mild Hyperbilirubinemia; with total bilirubin of 1.32 mg/dL and Transaminitis; with AST of 323 units/L, ALT of 527 units/L and alkaline phosphatase of 198 units/L and she was then admitted to the PCU for ongoing care for stay that is expected to extend beyond 2 midnights. [facility] Medical History Post-menopausal History of ulceration Gastric reflux History of stress test History of irregular heartbeat Aortic stenosis Lives in detention Wears glasses Wears partial dentures Marijuana use Discoloration of skin Open wound Insulin dependent diabetes mellitus Uses wheelchair Arthritis History of renal disease Low iron High cholesterol Back pain Dietary restriction History of GI bleed Non-smoker Chronic cough History of edema History of echocardiogram Cardiology follow-up encounter History of CHF (congestive heart failure) History of atrial fibrillation Palpitations Magnesium deficiency Diarrhea Asthma Vertebral osteomyelitis Discitis of thoracic region Intractable back pain Syndrome of inappropriate secretion of antidiuretic hormone Age-related incipient cataract of both eyes Iron deficiency anemia Generalized muscle weakness Morbid obesity with BMI of 40.0-44.9, adult Vitamin D deficiency Venous stasis ulcer with varicose veins Renal lesion Primary osteoarthritis of both knees History of colonic polyps Neurodermatitis Lymphedema of leg Lumbar facet arthropathy Benign essential hypertension Anemia Anxiety Depression CHF (congestive heart failure) A-fib COPD (chronic obstructive pulmonary disease) Kidney disease Diabetes Hyperlipidemia History of ESBL E. coli infection History of infection with vancomycin resistant Enterococcus (VRE) Altered mental status Home Medications ?Medication ?Instructions ?Recorded ?Last Taken ?Type cholecalciferol (vitamin D3) 25 25 mcg PO DAILY 12/31/23 Unknown History mcg (1,000 unit) capsule insulin lispro 100 unit/mL See Protocol subcut .TIDCM&HS 12/31/23 Unknown History subcutaneous pen (Humalog KwikPen (U-100) Insulin) nystatin 100,000 unit/gram topical 1 applic topical BID PRN skin 12/31/23 Unknown History powder irritation melatonin 3 mg tablet 6 mg (2 x 3 mg) PO QHS #0 tabs 01/08/24 Unknown Rx buspirone 5 mg tablet 5 mg PO BID 03/28/24 Unknown History dapagliflozin propanediol 5 mg 5 mg PO DAILY 03/28/24 Unknown History tablet (Farxiga) ferrous sulfate 325 mg (65 mg 325 mg PO QDAY 04/28/24 Unknown History iron) tablet furosemide 20 mg tablet 40 mg PO QAM 04/28/24 Unknown History Held on 11/18/24. Instructions: Resume on 11/20/24. pantoprazole 40 mg tablet,delayed 40 mg PO QDAY #90 tabs 04/28/24 Unknown Rx release cyclobenzaprine 10 mg tablet 5 mg PO TID 06/10/24 Unknown History acetaminophen 325 mg tablet 650 mg PO Q4H PRN Pain 1-08/16 Or 06/30/24 Unknown History Fever>100.7 albuterol sulfate 90 mcg/actuation 2 inh inhalation Q6H PRN shortness 06/30/24 Unknown History aerosol inhaler of breath or wheezing guaifenesin 400 mg tablet 400 mg PO Q4H PRN cough 06/30/24 Unknown History insulin glargine 100 unit/mL (3 8 unit subcut DAILY 06/30/24 07/01/24 History mL) subcutaneous pen (Lantus Solostar U-100 Insulin) polyethylene glycol 3350 17 17 g PO QODAY 06/30/24 Unknown History gram/dose oral powder (Miralax) apixaban 5 mg tablet (Eliquis) 5 mg PO BID #90 tabs 07/23/24 10/23/24 Rx carvedilol 3.125 mg tablet 3.125 mg PO BID #180 tabs 07/31/24 Unknown Rx docusate sodium 100 mg capsule 100 mg PO BID 10/09/24 Unknown History venlafaxine 150 mg 150 mg PO QDAY 10/09/24 Unknown History capsule,extended release 24 hr benzonatate 100 mg capsule 100 mg PO TID PRN cough 10/21/24 Unknown History magnesium hydroxide 400 mg/5 mL 30 ml PO DAILY PRN constipation 10/21/24 Unknown History oral suspension (Milk of Magnesia) Allergy/AdvReac Type Severity Reaction Status Date / Time No Known Allergies Allergy Verified 11/19/24 08:37 Family History Mother Alzheimer dementia Breast cancer Heart disease Brother Cystic fibrosis Surgical History History of colonoscopy S/P laminectomy History of tubal ligation Hx of cholecystectomy H/O section Social History Smoking Status: Never smoker alcohol intake: never ROS ROS Narrative Full Review of Systems was not possible due to patient's confusion. Vital Signs Vital Signs Vital Signs: 11/19/24 08:37 11/19/24 08:41 11/19/24 09:36 Temperature 97.6 F L 97.8 F Temperature Source Oral Oral Pulse Rate 115 H 108 H 78 Respiratory Rate 22 H 26 H 16 Blood Pressure 105/85 H 105/85 H 106/78 Blood Pressure Mean 91 91 87 Pulse Ox 99 98 97 Oxygen Delivery Method Room Air Room Air Room Air Oxygen Flow Rate (L/min) 11/19/24 09:41 11/19/24 10:00 11/19/24 11:03 Temperature 98.7 F 98.4 F Temperature Source Oral Oral Pulse Rate 89 78 101 H Respiratory Rate 18 16 21 H Blood Pressure 104/78 103/71 136/37 H Blood Pressure Mean 86 81 70 Pulse Ox 99 98 98 Oxygen Delivery Method Room Air Room Air Oxygen Flow Rate (L/min) 11/19/24 12:00 11/19/24 12:53 11/19/24 13:00 Temperature 98.4 F 97.9 F Temperature Source Oral Oral Pulse Rate 64 91 94 Respiratory Rate 16 16 18 Blood Pressure 104/78 108/78 129/78 H Blood Pressure Mean 86 88 95 Pulse Ox 98 99 96 Oxygen Delivery Method Room Air Room Air Room Air Oxygen Flow Rate (L/min) 11/19/24 14:00 11/19/24 15:19 11/19/24 15:34 Temperature 98.1 F Temperature Source Pulse Rate 106 H 100 100 Respiratory Rate 18 20 H 20 H Blood Pressure 96/80 96/80 Blood Pressure Mean 85 85 Pulse Ox 95 100 100 Oxygen Delivery Method Room Air Oxygen Flow Rate (L/min) 11/19/24 16:19 11/19/24 17:00 11/19/24 18:30 Temperature Temperature Source Pulse Rate 100 102 H 118 H Respiratory Rate 24 H 22 H 25 H Blood Pressure 92/74 97/78 125/86 H Blood Pressure Mean 80 84 99 Pulse Ox 97 97 Oxygen Delivery Method Oxygen Flow Rate (L/min) 11/19/24 18:36 11/19/24 19:00 11/19/24 20:00 Temperature 97.5 F L Temperature Source Oral Pulse Rate 103 H 112 H 102 H Respiratory Rate 25 H 18 20 H Blood Pressure 113/74 100/71 94/71 Blood Pressure Mean 87 80 78 Pulse Ox 97 97 97 Oxygen Delivery Method Room Air Room Air Oxygen Flow Rate (L/min) 11/19/24 21:00 11/19/24 22:00 11/19/24 23:00 Temperature Temperature Source Pulse Rate 105 H 107 H 102 H Respiratory Rate 19 H 19 H 20 H Blood Pressure 92/69 90/67 94/74 Blood Pressure Mean 76 74 80 Pulse Ox 92 97 97 Oxygen Delivery Method Room Air Room Air Room Air Oxygen Flow Rate (L/min) 11/20/24 00:00 11/20/24 01:00 11/20/24 02:00 Temperature Temperature Source Pulse Rate 114 H 100 115 H Respiratory Rate 26 H 19 H 20 H Blood Pressure 112/91 H 103/67 102/91 H Blood Pressure Mean 98 79 94 Pulse Ox 93 95 93 Oxygen Delivery Method Nasal Cannula Nasal Cannula Oxygen Flow Rate (L/min) 2 2 Weight Weight: 252 lb 13.923 oz Body Mass Index (BMI) 40.8 Physical Exam Const alert and no apparent distress Constitutional Narrative: Morbidly obese and confused with chronically ill appearance. General Appearance: cooperative Orientation / Consciousness: confused HEENT normocephalic, head/scalp atraumatic, hearing grossly normal bilaterally and moist oral mucous membranes Eyes PERRL and EOMs intact bilaterally Neck no lymphadenopathy and supple Resp Resp Narrative: Diminished breath sounds throughout. Cardio regular rate and regular rhythm GI normal to inspection, nondistended, normoactive bowel sounds, soft to palpation, non-tender and non-distended GI Narrative: Morbidly obese. Extremity Extremity Narrative: ~1-2+ symmetrical bilateral lower extremity pitting edema. Skin Skin Narrative: Patient has scattered bruises over upper extremities. Neuro CN's II-XII intact bilaterally, moves all extremities and no focal motor deficits Sensorium / Orientation: awake, alert, oriented to person and oriented to place Speech: speech normal Psych affect normal Results Medical Records Data Attestation: I reviewed the patient's medical records Lab / Micro Data Attestation: I reviewed the patient's lab results. 11/20/24 05:20 11/20/24 05:20 Labs: Laboratory Results - last 24 hr 11/19/24 09:54: WBC 9.6, RBC 3.97 L, Hgb 10.6 L, Hct 34.6 L, MCV 87.2, MCH 26.7 L, MCHC 30.6 L, RDW Std Deviation 55.1 H, RDW Coeff of Josiah 17.5 H, Plt Count 131 L, MPV 10.6, Immature Gran % (Auto) 0.500, Neut % (Auto) 65.5, Lymph % (Auto) 25.8, Simpson % (Auto) 7.5, Eos % (Auto) 0.4, Baso % (Auto) 0.3, Absolute Neuts (auto) 6.3, Absolute Lymphs (auto) 2.46, Nucleated RBC % 0.2, Sodium 137, Potassium 3.6, Chloride 96 L, Carbon Dioxide 22.0, Anion Gap 19 H, BUN 54 H, Creatinine 1.88 H, Estim Creat Clear Calc 32.74 L, Est GFR (MDRD) Non-Af 27 L, BUN/Creatinine Ratio 28.5 H, Glucose 136 H, Lactic Acid 5.0 H*, Calcium 9.2, Total Bilirubin 1.32 H, AST 323 H, ALT 527 H, Alkaline Phosphatase 198 H, [place] [address] H, Total Protein 6.2, Albumin 3.4, Globulin 2.8, Albumin/Globulin Ratio 1.2, Lipase 11 L 11/19/24 10:35: Urine Color Yellow, Urine Clarity Sl. Cloudy, Urine pH 5.0, Ur Specific Alma 1.020, Urine Protein 30 H, Urine Glucose (UA) Normal, Urine Ketones 5 H, Urine Occult Blood Negative, Urine Nitrite Negative, Urine Bilirubin Negative, Urine Urobilinogen 4 H, Ur Leukocyte Esterase 25 H, Urine RBC 0 SEEN, Urine WBC 0-5 SEEN, Ur Squamous Epith Cells 0-5 SEEN, Amorphous Sediment 2+, Urine Bacteria 0 SEEN, Urine Mucus 0 SEEN 11/19/24 11:43: Lactic Acid 4.2 H* 11/19/24 11:44: Lactic Acid 5.5 H* 11/19/24 13:33: POC Glucose 92 11/19/24 16:17: Lactic Acid 4.1 H*, Troponin T High Sens 172 H*, Procalcitonin 0.10 11/19/24 18:35: POC Glucose 53 L 11/19/24 18:49: Troponin T Hi Sens 2 Hr 182 H* 11/19/24 18:57: POC Glucose 102 11/19/24 19:30: POC Glucose 41 L* 11/19/24 19:56: POC Glucose 207 H 11/19/24 20:29: POC Glucose 70 L 11/19/24 21:05: POC Glucose 103 11/19/24 21:06: Troponin T Hi Sens 4Hr 183 H* 11/19/24 21:53: POC Glucose 165 H 11/19/24 23:49: POC Glucose 149 H ABG Data ABG results: ABG 11/19/24 10:11 Specimen Type SOLIS Sample Site Not entered VBG pH 7.48 H VBG pO2 178 H VBG HCO3 25 VBG Total CO2 26 VBG O2 Sat (Calc) 100 H VBG Base Excess 2 POC Mix VBG pCO2 Pt Tmp 33.9 L O2 Delivery Device Not entered Imaging Radiology Impression Chest X-Ray 11/19/24 10:10 IMPRESSION: Cardiomegaly and CHF with bibasilar atelectasis. Tiny bilateral pleural effusions. Reading Location: [facility] Brain CT 11/19/24 10:13 IMPRESSION: CHRONIC CHANGES. NO ACUTE FINDINGS. Reading Location: [id number] Abdomen/Pelvis CT 11/19/24 11:08 IMPRESSION: Bilateral pleural effusions with bibasilar dependent atelectasis and/or infiltrates. Diffuse subcutaneous edema of the abdominal wall. Reading Location: [facility] Assessment & Plan Assessment/Plan (1) CHF exacerbation: QUALIFIERS: Heart failure type: combined systolic and diastolic Qualified Code(s): I50.43 - Acute on chronic combined systolic (congestive) and diastolic (congestive) heart failure (2) Severe aortic stenosis: (3) Elevated troponin: (4) SANDRA (acute kidney injury): (5) CKD stage 3b, GFR 30-44 ml/min: (6) Cardiorenal syndrome: QUALIFIERS: Heart failure presence: with heart failure Hypertensive chronic kidney disease stage: stage 1-4 or unspecified chronic kidney disease Qualified Code(s): I13.0 - Hypertensive heart and chronic kidney disease with heart failure and stage 1 through stage 4 chronic kidney disease, or unspecified chronic kidney disease (7) Lactic acidosis: (8) Hyperbilirubinemia: (9) Acute metabolic encephalopathy: (10) Morbid obesity with BMI of 40.0-44.9, adult: PLAN: Plan 1. AE of chronic systolic CHF; reduced LVEF in the setting of previously known Severe Aortic Stenosis with elevated NT pro-BNP II of 45,597 pg/mL and a CXR that revealed cardiomegaly and CHF with bibasilar atelectasis and tiny bilateral pleural effusions and CT scan of the abdomen/pelvis without contrast that revealed bilateral pleural effusions with bibasilar dependent atelectasis and/or infiltrates with diffuse subcutaneous edema of the abdominal wall in addition to clinical evidence of ~1-2+ bilateral LE pitting edema - Admit to PCU until such time a bed opens up at [facility]. 2. Elevated initial troponin T of 172 ng/L present on admission suspected to be due to Acute Cardiac Strain complicating #1 - Serialize troponin. 3. SANDRA; in the setting of previously known CKD; stage IIIb-IV due to suspected evolving Cardio-Renal Syndrome compounding #1 & #2 - Give IV albumin and then attempt gentle diuresis to avoid worsening volume overload. We will avoid potentially nephrotoxic agents. 4. Lactic Acidosis of 4.1 mmol/L attributed to relatively poor organ perfusion due to severe aortic stenosis outlined in #1 - Serialize lactates. Treat conservatively and monitor for improvement. 5. Hyperbilirubinemia; with total bilirubin of 1.32 mg/dL and Transaminitis; with AST of 323 units/L, ALT of 527 units/L and alkaline phosphatase of 198 units/L adding to the medical complexity outlined from #1 - #4 - Check CMP daily to follow trend. CT of the abdomen/pelvis done on admission revealed normal liver size with no obvious mass. 6. Acute Metabolic Encephalopathy attributable to #1 - #5 - Check TSH, B12, Folate, ZHANG and UDS to evaluate for potentially reversible causes of confusion. Otherwise continue care plan as outlined above and monitor for improvement. 7. Morbid obesity (class III); with BMI of 40.8 this admission adding to the burden of disease outlined from #1 - #6 - Weight loss will be recommended. This complicates her case and may hamper recovery. 8. Recent admission here from November 09, 2024 to November 18, 2024 for treatment of AE of chronic systolic CHF; with reduced LVEF and corresponding elevated NT pro-BNP II of 55,945 pg/mL complicated by SANDRA; in the setting of known CKD; stage IIIb-IV presumed to be due to worsening aortic stenosis with patient suspected to be developing cardio-renal syndrome with plan for patient to follow-up at [facility] - Noted with patient seemingly unable to survive outside of the hospital setting given her constellation of severe and complex disease processes. 9. Essential hypertension; on carvedilol twice daily and furosemide (which was recently held) - Maintain on carvedilol and give IV furosemide once IV albumin is running. 10. DM-2; of unknown control on dapagliflozin, insulin lispro 3 times daily and insulin glargine 8 units subcu daily - Keep NPO for now until mental status improves. Check FSBS q. 6 hours plus lowest-intensity SSI. 11. Chronic atrial fibrillation; on apixaban twice daily - Resume apixaban as previous. 12. Chronic lower extremity lymphedema - Noted. 13. History of tobacco abuse; with subsequent asthma/COPD - Stable with no evidence of acute flare at this time. Give nebulizers prn. 14. History of SIADH - Noted with normal serum sodium of 137 mmol/L present on admission. 15. History of vertebral osteomyelitis and discitis of the thoracic region - Noted with no evidence of recurrence at this time. 16. History of ESBL E. coli and VRE infections - Noted. 17. History of vitamin D deficiency - Noted. Check vitamin D level. 18. Depression with anxiety; on buspirone twice daily plus venlafaxine - Current therapy to continue as before. 19. JESI; on ferrous sulfate - Stable with hemoglobin of 10.6 g/dL and MCV of 87.2 fL present on admission. 20. Chronic constipation; on polyethylene glycol daily, docusate twice daily plus as needed magnesium hydroxide - Maintain present bowel regimen. 21. GERD; with oropharyngeal dysphagia and esophagitis on EGD done November 11, 2024 + known history of PUD on pantoprazole - Resume PPI. 22. History of muscle spasms; on cyclobenzaprine 3 times daily - Continue cyclobenzaprine. 23. OA; s/p laminectomy with chronic back pain - Stable. 24. DVT prophylaxis - Patient on apixaban for #11 which will be continued. Total time: Approximately (but not less than) 75 minutes. Charges/Coding Visit Charges Inpatient E&M: 52485 Init Hosp L3
--- OUTSIDE RECORDS SUMMARY | 2024-11-20 03:29 | XMS RPT_ITS | CCD ---
Author Organization [facility] Team Providers Care Tankage Grinder Name Role Phone Huan Gilman Unavailable Unavailable Huan Gilman Unavailable Unavailable Huan Gilman Unavailable Unavailable Sparkle, Avirup Unavailable Unavailable Waqar Estrada Unavailable Unavailable Huan Gilman Unavailable Unavailable Huan Gilman Unavailable Unavailable Sparkle, Avirup Unavailable Unavailable Huan Gilman Unavailable Unavailable Unavailable Dr. Huan Gilman Primary Care Unavailab le Gio, Thomas Referring Unavailable Gio, Thomas Admitting Unavailable Angelique Clarke Attending UnavailHuan Perez MD Primary Care Provider Huan Gilman MD Unavailable [phone] Diana Marcano MA Unavailable Unavailable Huan Gilman MD Unavailable HUAN GILMAN Primary Care Unavailable FLAVIO AQUINO Attending Unavailable HUAN GILMAN Primary Care Unavailable ASHELFASHLEY, GHASEM E Admitting Unavailable ASHELFAH, GHASEM E Attending Unavailable RU MILLS Consulting Unavailable HUAN GILMAN Primary Care Unavailable ANGELIQUE CLARKE Admitting Unavailab le ANGELIQUE CLARKE Attending Unavailab HUAN Aguilar Primary Care Unavailable MARLEEN SIGALA Referring Unavailable HUAN GILMAN Primary Care Unavailable HUAN GILMAN Primary Care Unavailable HUAN GILMAN Primary Care Unavailable SKINNY STEEL Referring Unavailable HUAN GILMAN Primary Care Unavailable RU SANTOS Admitting Unavailable SAI MARIE Attending Unavailable BRAULIO ONEIL Attending Unavailable HUAN GILMAN Primary Care Unavailable Mukul REHMAN, Huan Patton Primary Care Provider Huan Gilman MD Unavailable Lim OLS, Dominic Primary Care Provider Unavaila [...] Unavailable Percy CAMPOS, Dr. Cruz Attending Provider [phone] Percy CAMPOS, Dr. Cruz Emergency Provider Junior [...] Other Provider MARLEEN SIGALA Attending Unavailable HUAN GILMAN Primary Care Unavailable HUAN GILMAN Attending Unavailable HUAN GILMAN Referring Unavailable HUAN GILMAN Primary Care Unavailable MILKS, ELIZA A Attending Unavailable HUAN GILMAN Primary Care Unavailable MEGAN OSORIO Attending Unavailable HUAN GILMAN Primary Care Unavailable Junior REHMAN, Dr. Chen Primary Care Provider Maryam Mullen MD, Dr. Chen Attending Provider Abram Pedraza MD, Dr. Álvarez Attending Provider Mandy Simms Attending Provider Milo REHMAN, Dr. Álvarez Referring Provider Milo REHMAN, Dr. Álvarez Other Provider Unavailable Primary Care Provider Shaye Mullen MD, Dr. Chen Primary Care Provider Maryam Amaro MD, Dr. Natarajan Attending Provider Unavail iesha Mullen MD, Dr. Chen Referring Provider Abram Pemberton FACTORY WORKER-C, Yennifer Attending Provider Junior REHMAN, Dr. Chen Primary Care Provider Maryam Amaro MD, Dr. Natarajan Attending Provider Unavail iesha Mullen MD, Dr. Chen Primary Care Provider Maryam Mullen MD, Dr. Chen Referring Provider Unavailmaria luisa Munoz DO, Dr. Casey Attending Provider Alexander CAMPOS, Dr. Casey Other Provider Aleida CAMPOS, Dr. Prescott Emergency Provider Prem CAMPOS, Dr. Natarajan Primary Care Provider Emiliano REHMAN, Dr. Diaz Admit Provider Emiliano REHMAN, Dr. Diaz Attending Provider Emiliano REHMAN, Dr. Diaz Other Provider Jeri Arcos Other Provider Millicent REHMAN, Dr. Shabbir Myers Attending Provider Dr. Edmundo Monge DO Other Provider Dr. Edmundo Monge DO Attending Provider Millicent REHMAN, Dr. Shabbir Myers Other Provider Gudla, April Primary Care Unavailable Milo, Henri Attending Unavailable Milo, Henri Referring Unavailable Lim, Dominic Primary Care Unavailable Lim NIC, Dominic Attending Unavailable Lim NIC, Dominic Attending Unavailable Lim OLS, Dominic Primary Care Unavailable Lim NIC, Dominic Attending Unavailable Gudla, April Referring Unavailable Gudla, April Primary Care Unavailable Yennifer Pemberton Attending Unavailable Gudla, April Referring Unavailable Gudla, April Primary Care Unavailable Chrissie Meaz Attending Unavailable Gudla, April Referring Unavailable Gudla, April Primary Care Unavailable Milo, Henri Attending Unavailable Amaro, Delgado Primary Care Unavailable Emily Cummings Admitting Unavailable Emily Cummings Consulting Unavailable Edmundo Monge Attending Unavailable Jeri Rowland Consulting Unavailable Edmundo Monge Consulting Unavailable Waqar Berman Consulting Unavailable Waqar Berman Attending Unavailable Waqar Berman Admitting Unavailable Lim, Dominic Primary Care Unavailable Ever Last Consulting Unavailable Ever Last Attending Unavailable Jessee Lucas Consulting Unavailable Lim, Dominic Primary Care Unavailable Lim NIC, Dominic Attending Unavailable Lim NIC, Dominic Attending Unavailable Mlio, Henri Referring Unavailable Milo, Henri Consulting Unavailable Milo, Henri Attending Unavailable Gudla, April Primary Care Unavailable Gudla, April Referring Unavailable Gudla, April Primary Care Unavailable Friend, Jacinto Attending Unavailable Friend, Jacinto Consulting Unavailable Gudla, April Referring Unavailable Gudla, April Primary Care Unavailable Friend, Jacinto Consulting Unavailable Friend, Jacinto Attending Unavailable Gudla, April Referring Unavailable Amaro, Delgado Primary Care Unavailable Mandy Mcallister Attending Unavailable Gudla April LUCERO Attending Unavailable Lim, Dominic Primary Care Unavailable Lim, Dominic Primary Care Unavailable Lim NIC, Dominic Attending Unavailable Lim, Dominic Primary Care Unavailable Lim NIC, Dominic Attending Unavailable Lim, Dominic Primary Care Unavailable Jerman Zavala Attending Unavailable Lim NIC, Dominic Attending Unavailable Lim, Dominic Primary Care Unavailable Lim NIC, Dominic Attending Unavailable Gudla April LUCERO Attending Unavailable Lim, Dominic Primary Care Unavailable Lim, Dominic Primary Care Unavailable Lim NIC, Dominic Attending Unavailable Gudla, April Primary Care Unavailable Anthony Greer Attending Unavailable Delgado Gillette Referring Unavailable Delgado Gillette Attending Unavailable Gudla, April Primary Care Unavailable Gudla, April Primary Care Unavailable Gudla NIC, April Attending Unavailable Gudla OLS, April Referring Unavailable Gudla, April Primary Care Unavailable Gudla NIC, April Attending Unavailable Carina LUCERO, Dominic Attending Unavailable Carina LUCERO, Dominic Referring Unavailable Lim NIC, Dominic Primary Care Unavailable Lim NIC, Dominic Attending Unavailable Lim OLS, Dominic Referring Unavailable Lim OLS, Dominic Primary Care Unavailable Gudla, April Primary Care Unavailable Gudla NIC, April Attending Unavailable Gudla, April Referring Unavailable Gudla, April Primary Care Unavailable Jacinto Munoz Attending Unavailable Emily Cummings Consulting Unavailable Emily Cummings Admitting Unavailable Shabbir Ricks Attending Unavailable Delgado Amaro Primary Care Unavailable Jeri Rowland Consulting Unavailable Edmundo Monge Consulting Unavailable Delgado Amaro Primary Care Unavailable Lisa, Nino Referring Unavailable Lisa, Gunnison Attending Unavailable Shabbir Ricks Attending Unavailable Shabbir Ricks Consulting Unavailable Alexander, Jacinto Attending Unavailable Gudla, April Primary Care Unavailable Gudla, April Referring Unavailable Mandy Mcallister Attending Unavailable Lim, Dominic Primary Care Unavailable Dominic Lim Attending Unavailable Dominic Lim Primary Care Unavailable Kalidla April LUCERO Attending Unavailable Waqar Berman Consulting Unavailable Seun Rollins Attending Unavailable Waqar Berman Admitting Unavailable Dominic Lim Primary Care Unavailable Jessee Lucas Consulting Unavailable Ever Last Consulting Unavailable Natalie Espinal Attending UnavailDominic Cortez Primary Care Unavailable Seun Rollins Attending Unavailable Seun Rollins Consulting Unavailable Emily Cummings Attending Unavailable Gudla, April Primary Care Unavailable Gudla April LUCERO Attending Unavailable Delgado Gillette Referring Unavailable Delgado Gillette Attending Unavailable Gudla, April Primary Care Unavailable Gudla, April Primary Care Unavailable Gudla April LUCERO Attending Unavailable Delgado Gillette Attending Unavailable Gudla, April Primary Care Unavailable Gudla, April Primary Care Unavailable Delgado Gillette Attending Unavailable Delgado Gillette Attending Unavailable Gudla, April Primary Care Unavailable Carina LUCERO, Dominic Attending Unavailable Delgado Gillette Attending Unavailable Gudla, April Primary Care Unavailable Carina LUCERO, Dominic Attending Unavailable Dominic Strickland Attending Unavailable Gudla NIC, April Attending Unavailable Lim NIC, Dominic Attending Unavailable Gudla, Aprli Primary Care Unavailable Gudla OLS, April Attending Unavailable Gudla, April Primary Care Unavailable Gudla, April Referring Unavailable Friend, Jacinto Attending Unavailable Gudla NIC, April Attending Unavailable Dominic Lim Primary Care Unavailable Allergies Allergy Classification Reported Allergen(s) Allergy Type Date of Onset Reaction(s) Facility venlafaxine (7 sources) venlafaxine; Translations: [Effexor] Drug Allergy Edema [facility] Work Phone: (20 sources) venlafaxine; Translations: [Effexor] Drug Allergy Edema [facility] Work Phone: (5 sources) venlafaxine; Translations: [VENLAFAXINE] Drug Allergy 08-30-2022 [facility] Medications Current Medications Medication Drug Class(es) Dates [...] Start: 11-19-2023 take 2 tablets by mo ut every six hours for pain acetaminophen (Tylenol) [...] pain scores based on patient preference? Yes [id number] actuat albuterol 0.09 mg/actuat metered dose [...] Quantity: 3 Refills: 1 Ordered: 26-Sep-2021 Huan Gilman MD Start : 01-Sep-2021 Active whatever brand [...] Quantity: 10 Refills: 1 Ordered: 11-Apr-2021 Huan Gilman MD Start : 11-Apr-2021 End : 21-Apr-2021 Active Start: 07-29-2019 End: 08-13-2019 take 1 tablet by mouth twice daily Amoxicillin-Pot Clavulanate 875-125 MG Oral Tablet Take 1 tablet twice daily Quantity: 14 Refills: 1 Huan Gilman Start : 29-Jul-2019 End : 12-Aug-2019 Active apixaban 5 mg oral tablet (6 sources) Factor Xa Inhibitor Start: 07-23-2024 take [...] Quantity: 90 Refills: 3 Ordered: 07-Mar-2022 Huan Gilman MD Start : 03-Feb-2019 Active atorvastatin 20 mg oral tablet (2 sources) HMG-CoA Reductase Inhibitor End: 12-12-2022 take 1 tablet by mouth once daily at bedtime atorvastatin (Lipitor) 20 mg tablet Take 1 tablet (20 mg) by mouth once daily at bedtime. 0 12/12/2022 Discontinued (Therapy completed) benzonatate 100 mg oral capsule (3 sources) Non-narcotic Antitussive Start: 10-21-2024 take 1 capsule by mouth three times daily as needed for cough Benzonatate 100 mg capsule Active 100 mg PO THREE TIMES A DAY as needed for cough October 21, 2024 12:00am busPIRone hydrochloride 5 mg oral tablet (11 sources) Start: 03-28-2024 take 1 tablet by mouth twice daily Buspirone 5 mg tablet Active 5 mg PO TWICE A DAY March 28, 2024 1:00am carvedilol 3.125 mg oral tablet (18 sources) alpha-Adrenergic Nancy, beta-Adrenergic Nancy Start: 07-31-2024 [...] 11/19/2023 Active dapagliflozin 5 mg oral tablet (12 sources) Sodium-Glucose Cotransporter 2 Inhibitor Start: 03-28-2024 take 1 tablet by mouth once daily Dapagliflozin Propanediol (Farxiga) 5 mg tablet Active 5 mg PO DAILY March 28, 2024 1:00am Start: 02-26-2024 Farxiga 5 mg 1 04/27/2023 Active diphenhydrAMINE hydrochloride 25 mg oral capsule (1 source) Histamine-1 Receptor Antagonist Start: 10-14-2023 take 25 mg by mouth once daily 25 mg, oral, Nightly, First dose on Sun10/14/23 at 2100 docusate sodium 100 mg oral capsule (5 sources) Start: 10-09-2024 take 1 capsule by mouth twice daily Docusate Sodium 100 mg capsule Active 100 mg PO TWICE A DAY October 09, 2024 12:00am Start: 11-09-2023 End: 11-11-2023 docusate sodium 50 mg / sennosides, longterm 8.6 mg oral tablet (1 source) Start: [...] Active ferrous sulfate 325 mg oral tablet (12 sources) Start: 04-28-2024 take 1 tablet by [...] (Therapy completed) furosemide 20 mg oral tablet (12 sources) Loop Diuretic Start: 04-28-2024 take 2 tablets by mouth once daily in the morning Furosemide 20 mg tablet Active 40 mg PO EVERY MORNING April 28, 2024 1:00am On Hold: Resume on 11/20/24. Start: 04-28-2024 take 1 tablet by ofelia th once daily in the morning Furosemide 20 [...] Start: 10-10-2023 guaiFENesin 400 mg oral tablet (10 sources) Start: 06-30-2024 take 1 tablet by [...] ml insulin glargine 100 unt/ml pen injector (10 sources) Insulin Analog Start: 06-30-2024 Insulin Glargi ne (Lantus Solostar U-100 Insulin) 100 unit/mL (3 mL) insulin pen Active 8 U SC DAILY June 30, 2024 12:00am 3 ml insulin lispro 100 unt/ml pen injector (19 sources) Insulin Analog Start: 02-05-2024 Admelog SoloSt [...] Active Start: 11-10-2023 Start: 10-10-2023 0-10 Units, figueroa bcutaneous, 3 times daily (morning, midday, late [...] is greater than 400 mg/dL Magnesium Hydroxide (4 sources) Start: 10-21-2024 take 1 mL by [...] End: 11-20-2023 melatonin 3 mg oral tablet (11 sources) Start: 01-08-2024 take 2 tablets by mouth at bedtime Melatonin 3 mg Tablet Active 6 mg PO AT BEDTIME 0 0 January 08, 2024 12:00am multivit-minerals/f olic acid (ADULT MULTIVITAMIN GUMMIES ORAL) (3 sources) take 1 dose by mouth once daily multivit-minerals/ folic acid (ADULT MULTIVITAMIN GUMMIES ORAL) Take 1 each by mouth once daily. Active nystatin 100 unt/mg topical powder (17 sources) Polyene Antifungal Start: 11-19-2023 End: 02-28-2024 [...] pantoprazole 40 mg delayed release oral tablet (11 sources) Proton Pump Inhibitor Start: 04-28-2024 take [...] August discolor urine (orange). polyethylene glycol 3350 02907 mg powder for oral solution (20 sources) [...] once daily at bedtime. 10/15/2023 Active sennosides, longterm 8.6 mg oral tablet (6 sources) Start: [...] 2:49pm Start: 07-08-2020 take 1 tablet by ofelia once daily Venlafaxine HCl ER 75 MG Oral Tablet Extended Release 24 Hour Take 1 tablet daily Quantity: 30 Refills: 9 Ordered: 13-Oct-2020 Huan Gilman MD Start : 08-Jul-2020 Active take 1 capsule by mo [facility] once daily Venlafaxine HCl ER 75 MG Oral Capsule Extended Release 24 Hour TAKE 1 CAPSULE Daily Quantity: 90 Refills: 1 Ordered: 28-Mar-2022 Huan Gilman MD Active (2 sources) Start: 11-19-2023 Start: 11-16-2023 (2 sources) Start: 11-20-2023 Start: 11-17-2023 End: 11-17-2023 Completed/Discontinued Medications Medication Drug Class(es) Dates Sig (Normalized) Sig (Original) ascorbic acid 500 mg oral tablet (11 sources) Vitamin C Start: 01-08-2024 End: 10-09-2024 take 1 tablet by mouth twice daily at mealtime Ascorbic Acid (Vitamin C) 500 mg Tablet Discontinued 500 mg PO TWICE DAILY WITH MEALS 0 0 January 08, 2024 12:00am October 09, 2024 2:52pm aspirin 325 mg oral tablet (11 sources) Platelet Aggregation Inhibitor, Nonsteroidal Anti-inflammatory Drug [...] Tract Infection cephalexin 500 mg oral capsule (15 sources) Cephalosporin Antibacterial Start: 03-28-2024 End: 04-28-2024 [...] TIMES DAILY. Quantity: 40 Refills: 0 Huan Gilman Start : 16-May-2019 End : 20-Jul-2019 Active [...] DO Active dexamethasone 6 mg oral tablet (11 sources) Corticosteroid Start: 01-08-2024 End: 03-28-2024 take [...] End: 11-20-2023 empagliflozin 10 mg oral tablet (11 sources) Sodium-Glucose Cotransporter 2 Inhibitor Start: 01-08-2024 End: 03-28-2024 take 1 tablet by mouth once daily Empagliflozin (Jardiance) 10 mg Tablet Discontinued 10 mg PO DAILY 0 January 08, 2024 12:00am March 28, 2024 1:09pm escitalopram 5 mg oral tablet (14 sources) Serotonin Reuptake Inhibitor Start: 10-09-2024 End: 10-21-2024 take 1 tablet by mouth once daily Escitalopram Oxalate 5 mg tablet Discontinued 5 mg PO daily October 09, 2024 12:00am October 21, 2024 8:33am Start: 06-30-2024 End: 10-09-2024 Escitalopram Oxalate (Lexapr o) 10 mg tablet Discontinued 15 mg PO DAILY June 30, 2024 12:00am October 09, 2024 2:51pm famotidine 10 mg oral tablet (20 sources) Histamine-2 Receptor Antagonist Start: 04-28-2024 End: [...] BREAKFAST. Quantity: 90 Refills: 1 Ordered: 11-Oct-2021 Huna Gilman MD Start : 03-Feb-2019 Active hydroCHLOROthiazide 25 [...] 25-Jul-2019 Active L.Acidoph,Saliva-B.Bif-S.The rm 175 mg Capsule (11 sources) Start: 01-08-2024 End: 04-28-2024 take 1 [...] Quantity: 7 Refills: 1 Ordered: 05-Oct-2020 Huan Gilman MD Start : 21-Jul-2019 Active Lidocaine (1 [...] TABLET Bedtime Quantity: 30 Refills: 0 Huan Gilman MD Start : 15-Nov-2019 Active Start: 11-15-2019 take 1 tablet by ofelia th at bedtime LORazepam 1 MG Oral Tablet TAKE 1 TABLET Bedtime Quantity: 30 Refills: 0 Huan Gilman MD Start : 15-Nov-2019 Active Start: 02-03-2019 take 1 tablet by ofelia th at bedtime LORazepam 1 MG Oral Tablet TAKE 1 TABLET Bedtime Quantity: 30 Refills: 0 Ordered: 05-Jun-2022 Huan Gilman MD Start : 03-Feb-2019 Active Magnesium (4 [...] 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 180 tablet 3 03/13/2023 04/20/2023 Discontinued (Therapy completed) Start: 03-07-2022 take 1 tablet by ofelia th twice daily metFORMIN HCl - 500 MG Oral Tablet TAKE 1 TABLET TWICE DAILY. Quantity: 60 Refills: 5 Ordered: 07-Mar-2022 Huan Gilman MD Start : 07-Mar-2022 Active Start: 02-03-2019 take 1 tablet by ofelia th once daily metFORMIN HCl ER 500 MG Oral Tablet Extended Release 24 Hour TAKE 1 TABLET DAILY DIRECTED. Quantity: 30 Refills: 9 Ordered: 13-Oct-2020 Huan Gilman MD Start : 03-Feb-2019 Active 24 hr metoprolol succinate 25 mg extended release oral tablet (6 sources) beta-Adrenergic Nancy Start: 07-23-2024 End: 07-31-2024 take 1 tablet by mouth once daily Metoprolol Succinate 25 mg tablet extended release 24 hr Discontinued 25 mg PO daily 90 3 July 23, 2024 12:00am July 31, 2024 3:29pm 5 ml midazolam 1 mg/ml injection (2 sources) Benzodiazepine Start: 11-13-2023 End: 11-13-2023 1 ml morphine sulfate 2 mg/ml prefilled syringe (1 source) Opioid Agonist Start: 10-10-2023 End: 10-10-2023 2 mg, intravenous, Once, On Sun10/10/23 at 0405, For 1 dose Multivitamin (Daily Multi-Vitamin) tablet (11 sources) Start: 12-31-2023 End: 10-09-2024 Multivitamin (Daily [...] Quantity: 1 Refills: 1 Ordered: 30-Oct-2019 Huan Gilman MD Start : 30-Oct-2019 Active Start: 10-30-2019 Mupirocin 2 % External Ointment apply to opine wounds bid Quantity: 1 Refills: 1 Huan Gilman MD Start : 30-Oct-2019 Active 22 GM Tube PARoxetine hydrochloride 20 mg oral tablet (18 sources) Serotonin Reuptake Inhibitor Start: 11-02-2020 take 1 tablet by mouth once daily PARoxetine HCl - 20 MG Oral Tablet Take 1 tablet daily Quantity: 30 Refills: 11 Ordered: 02-Nov-2020 Huan Gilman MD Start : 02-Nov-2020 Active Start: 02-03-2019 take 1 tablet by ofelia th once daily PARoxetine HCl - 40 MG Oral Tablet TAKE 1 TABLET DAILY. Quantity: 30 Refills: 11 Huan Gilman MD Start : 03-Feb-2019 Active piperacillin 3000 mg / tazobactam 375 mg injection (1 source) Penicillin-class Antibacterial, beta Lactamase Inhibitor Start: 11-09-2023 End: 11-16-2023 take 3.375 g intravenously every six hours polyethylene glycol 3350 163527 mg / potassium chloride 2970 mg / sodium bicarbonate 6740 mg / sodium chloride 5860 mg / sodium sulfate 31957 mg powder for oral solution (11 sources) Osmotic Laxative Start: 04-28-2024 End: 06-30-2024 [...] Quantity: 90 Refills: 2 Ordered: 05-Jun-2022 Huan Gilman MD Start : 05-Feb-2019 Active Sennosides 8.6 mg tablet (11 sources) Start: 12-31-2023 End: 10-09-2024 take 2 [...] Start: 12-31-2023 take 2 tablets by [facility] twice daily Sennosides 8.6 mg tablet [...] Quantity: 1 Refills: 0 Ordered: 11-Nov-2020 Huan Gilman MD Start : 11-Nov-2020 Active Start: 08-21-2019 Unspecified Me dication Medi Circ Aid wide circumference and standard length. Quantity: 2 Refills: 0 Ordered: 21-Aug-2019 Huan Gilman MD Start : 21-Aug-2019 Active 1 kit for each leg Start: 08-21-2019 Unspecified Me dication Medi Circ Aid wide circumference and standard length. Quantity: 2 Refills: 0 Huan Gilman MD Start : 21-Aug-2019 Active Vancomycin (20 [...] Chronic Chronic obstructive pulmonary disease and bronchiectasis (12 sources) Chronic obstructive lung disease; Translations: [Chronic obstructive pulmonary disease, unspecified] Onset: 07-08-2024 06-10-2024 Chronic Congestive heart failure; nonhypertensive (20 sources) Congestive heart failure; Translations: [Heart failure, unspecified] Onset: 11-18-2024 06-10-2024 Chronic Deficiency and other anemia (2 sources) Iron deficiency anemia, unspecified; Translations: [Iron deficiency anemia, unspecified] Onset: 09-15-2022 Episodic Deficiency and other anemia (20 sources) Iron deficiency anemia; Translations: [Iron deficiency anemia, unspecified] Onset: 10-12-2022 10-12-2022 Episodic Deficiency and other anemia (11 sources) Chronic anemia; Translations: [Anemia, unspecified] 04-05-2024 [...] [Benign essential hypertension] Onset: 08-30-2022 08-30-2022 Chronic Fluid and electrolyte disorders (20 sources) Hypokalemia; Translations: [Hypopotassemia] Onset: 08-30-2022 Resolved: 10-15-2023 08-30-2022 Episodic Gastroduodenal ulcer (except hemorrhage) (16 sources) Gastric ulcer; Translations: [Gastric ulcer, unspecified as acute or chronic, without hemorrhage or perforation] Onset: 11-03-2024 07-31-2024 Chronic Heart valve disorders (9 sources) Aortic valve stenosis; Translations: [Nonrheumatic aortic [...] caused by tuberculosis or sexually transmitted disease) (20 sources) Osteomyelitis of vertebra, thoracic region; Translations: [...] deficiency] Onset: 08-30-2022 08-30-2022 Chronic Nutritional deficiencies (19 sources) Magnesium deficiency; Translations: [Disorders of magnesium [...] use of other medications] Episodic Other aftercare (3 sources) [facility] (current) use of anticoagulants; Translations: [[facility] (current) use of anticoagulants] Onset: 09-15-2022 Episodic Other aftercare (1 source) [facility] (current) use of oral hypoglycemic drugs; Translations: [[facility] (current) use of oral hypoglycemic drugs] Onset: 09-15-2022 Episodic Other aftercare (4 sources) Long-term current use of anticoagulant; Translations: [predatory animal exterminator (current) use of anticoagulants] 11-09-2024 Episodic Other aftercare (1 source) Other intermission coordinator (current) drug therapy; Translations: [Other intermission coordinator (current) drug therapy] Onset: 10-06-2024 Episodic Other connective tissue disease (20 sources) Muscle weakness; Translations: [Muscle weakness (generalized)] Onset: 10-12-2022 10-12-2022 Episodic Other diseases of kidney and ureters (11 sources) Kidney disease; Translations: [Disorder of kidney and ureter, unspecified] 06-10-2024 Episodic Comment on above: stage 3 Other diseases of kidney and ureters (4 sources) Acute renal insufficiency; Translations: [Disorder of kidney and ureter, unspecified] 11-09-2024 Episodic Other diseases of kidney and ureters (2 sources) Disorder of kidney and ureter, unspecified; Translations: [Disorder of kidney and ureter, unspecified] Onset: 11-18-2024 Episodic Other diseases of veins and lymphatics (20 [...] antidiuretic hormone] Onset: 04-20-2023 04-20-2023 Chronic Other gastrointestinal disorders (2 sources) Dysphagia; Translations: [Dysphagia, unspecified] 11-17-2024 Episodic Other gastrointestinal disorders (2 sources) Dysphagia, unspecified; Translations: [Dysphagia, unspecified] Onset: 11-18-2024 Episodic Other inflammatory condition of skin (8 sources) [...] Chronic Other nutritional; endocrine; and metabolic disorders (12 sources) Hypomagnesemia; Translations: [Hypomagnesemia] 03-13-2023 Chronic Other [...] states] Onset: 02-28-2024 Episodic Residual codes; unclassified (11 sources) Altered mental status; Translations: [Altered mental status, unspecified] 01-16-2024 Episodic Residual codes; unclassified (11 sources) Dependent edema; Translations: [Edema, unspecified] 12-26-2023 Episodic Residual codes; unclassified (4 sources) Other specified health status; Translations: [Failure of outpatient treatment] 11-09-2024 Episodic Rheumatoid arthritis and related disease (20 [...] [Other persistent atrial fibrillation (Multi)] Onset: 08-30-2022 Unclassified (2 sources) Acidosis, unspecified; Translations: [Acidosis, unspecified] Onset: 11-18-2024 Urinary tract infections (3 sources) Urinary tract infection, site not specified; Translations: [Urinary tract infection, site not specified] Onset: 09-08-2022 Episodic Varicose veins of lower extremity (20 sources) Venous stasis ulcer of leg; 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] Onset: 08-30-2022 08-30-2022 Episodic Viral infection (11 sources) Disease caused by 2019-nCoV; Translations: [COVID-19] 12-31-2023 Episodic Viral infection (2 sources) COVID-19; Translations: [COVID-19] Onset: 01-08-2024 Past or Other Problems Problem Classification Problem Date Documented Da te Episodic/Chronic Abdominal pain (1 source) Epigastric pain; Translations: [Epigastric pain] Onset: 5 Episodic Bacterial infection; unspecified site (15 sources) Bacteremia; Translations: [Bacteremia] Onset: 4 Episodic [...] [Other iron deficiency anemias] Onset: 3 Episodic Gastrointestinal hemorrhage (12 sources) Gastrointestinal hemorrhage; Translations: [Gastrointestinal hemorrhage, unspecified] [...] Resolved: 2 Episodic Pleurisy; pneumothorax; pulmonary collapse (12 sources) Pleural effusion; Translations: [Pleural effusion, not elsewhere classified] Onset: 4 12-31-2023 Episodic Pneumonia (except that caused by tuberculosis or sexually transmitted disease) (12 sources) Pneumonia; Translations: [Pneumonia, unspecified organism] Onset: 4 12-31-2023 Episodic Residual codes; unclassified (1 source) Altered mental status, unspecified; Translations: [Altered mental status, unspecified] Onset: 4 Episodic Residual codes; unclassified (1 source) Edema, unspecified; Translations: [Edema, unspecified] Onset: 5 Episodic Respiratory failure; insufficiency; arrest (adult) (15 sources) Alveolar hypoventilation; Translations: [Respiratory failure, unspecified [...] sources) Prescribed medication regimen behavior finding; Translations: [[facility] prescription benzodiazepine use] Unclassified (14 sources) Onset: 3 Resolved: 4 10-13-2022 NEGATED: Highlighted row has not occurred!Residual codes; unclassified (20 sources) Disease Episodic Results Test Name Value Interpretation Reference Range Facility Absolute lymphocyte countOrd ered By: Shabbir Ricks on 11-18-2024 Lymphocytes Auto (Unsp spec) [#/Vol] 2.25 10*3/uL 0.83-4.51 [facility] Absolute neutrophil countOrd ered By: Shabbir Ricks on 11-18-2024 Neutrophils (Bld) [#/Vol] 6.2 10*3/uL 2.0-7.7 [facility] Anion gap in Serum or Plasma Ordered By: Shabbir Ricks on 11-18-2024 Anion gap [Moles/Vol] 14 mmol/L 5-15 [facility] Automated lymphocyte count a s percentage of total leukocytesOrdered By: Shabbir Ricks on 11-18-2024 Lymphocytes/100 WBC Auto (Unsp spec) 23.6 % - [facility] BUN/creatinine ratioOrdered By: Shabbir Ricks on 11-18-2024 Urea nitrogen/Creatinine [Mass ratio] 32.2 mg/mg High - [facility] Basic Metabolic Profile (BMP )on 11-18-2024 BUN/CRE 32.2 RATIO High - [facility] Comment on above: Performed By: #### L 100.0100, L500.2500 ####[facility] [address] [place], [address] Calcium [Mass/Vol] 8.7 mg/dL Normal 7.6-11.0 [facility] Comment on above: Performed By: #### L 100.0100, L500.2500 ####[facility] [address] [place], [address] Chloride [Moles/Vol] 99 mmol/L Normal 98-108 [facility] Comment on above: Performed By: #### L 100.0100, L500.2500 ####[facility] [address] [place], [address] CO2 [Moles/Vol] 25.2 mmol/L Normal 21.0-32.0 [facility] Comment on above: Performed By: #### L 100.0100, L500.2500 ####[facility] [address] [place], [address] Creatinine [Mass/Vol] 1.40 mg/dL High 0.70-1.20 [facility] Comment on above: Performed By: #### L 100.0100, L500.2500 ####[facility] [address] [place], [address] ECRCL 43.57 ml/min Low 50-250 [facility] Comment on above: Performed By: #### L 100.0100, L500.2500 ####[facility] [address] [place], [address] GAP 14 Normal 5-15 [facility] Comment on above: Performed By: #### L 100.0100, L500.2500 ####[facility] [address] [place], [address] GFR/1.73 sq M.predicted among non-blacks MDRD (S/P/Bld) [Vol rate/Area] 39 mL/min/{1.73_m2} Low >60 [facility] Comment on above: Result Comment: mL/m in/1.73m2 CKD-EPI Creatinine Equation (2020) Performed By: #### L 100.0100, L500.2500 ####[facility] [address] [place], [address] Glucose [Mass/Vol] 125 mg/dL High 70-99 [facility] Comment on above: Performed By: #### L 100.0100, L500.2500 ####[facility] [address] [place], [address] Potassium [Moles/Vol] 3.8 mmol/L Normal 3.3-5.1 [facility] Comment on above: Result Comment: Hemo lysis present, Results??could be affected.?? Performed By: #### L 100.0100, L500.2500 ####[facility] [address] [place], [address] Sodium [Moles/Vol] 138 mmol/L Normal 133-145 [facility] Comment on above: Performed By: #### L 100.0100, L500.2500 ####[facility] [address] [place], [address] Urea nitrogen [Mass/Vol] 45 mg/dL High 4-19 [facility] Comment on above: Performed By: #### L 100.0100, L500.2500 ####[facility] [address] [place], [address] Basophil percentageOrdered B y: Shabbir Alejandroparisgertrude on 11-18-2024 Basophils/100 WBC (Bld) 0.4 % 0-1 [facility] Bedside Glucoseon 11-18-2024 FINGERSTICK GLU 127 mg/dL High 74-106 [facility] Comment on above: Result Comment: ASHU KELLY OF PATIENT CARE PER NURSING PROTOCOL Performed By: #### L 501.080 ####[facility] [address] [place], [address] CBC W/Diff, Automatedon 11-07 Absolute Lymph 2.25 X10 3/uL Normal 0.83-4.51 [facility] Comment on above: Performed By: #### L 100.0100, L500.2500 ####[facility] [address] [place], [address] Absolute Neut 6.2 X10 3/uL Normal 2.0-7.7 [facility] Comment on above: Performed By: #### L 100.0100, L500.2500 ####[facility] [address] [place], [address] Basophils/100 WBC (Bld) 0.4 % Normal 0-1 [facility] Comment on above: Performed By: #### L 100.0100, L500.2500 ####[facility] [address] [place], [address] Eosinophils/100 WBC (Bld) 1.9 % Normal 0-5 [facility] Comment on above: Performed By: #### L 100.0100, L500.2500 ####[facility] [address] [place], [address] Erythrocyte distribution width (RBC) [Ratio] 17.7 % High 11.6-14.6 [facility] Comment on above: Performed By: #### L 100.0100, L500.2500 ####[facility] [address] [place], [address] Hematocrit (Bld) [Volume fraction] 34.3 % Low 37-47 [facility] Comment on above: Performed By: #### L 100.0100, L500.2500 ####[facility] [address] [place], [address] Hemoglobin (Bld) [Mass/Vol] 10.3 g/dL Low 12.0-15.0 [facility] Comment on above: Performed By: #### L 100.0100, L500.2500 ####[facility] [address] [place], [address] IG% 0.300 Normal 0.0-0.9 [facility] Comment on above: Result Comment: IG% - Immature Granulocytes (promyelocytes, myelocytes andmetamyelocytes) > 1% indicates that a LEFT SHIFT is Present. Performed By: #### L 100.0100, L500.2500 ####[facility] [address] [place], [address] Lymphocytes/100 WBC (Bld) 23.6 % Normal 19-41 [facility] Comment on above: Performed By: #### L 100.0100, L500.2500 ####[facility] [address] [place], [address] MCH (RBC) [Entitic mass] 27.0 pg Normal 27.0-32.0 [facility] Comment on above: Performed By: #### L 100.0100, L500.2500 ####[facility] [address] [place], [address] MCHC (RBC) [Mass/Vol] 30.0 g/dL Low 32-36 [facility] Comment on above: Performed By: #### L 100.0100, L500.2500 ####[facility] [address] [place], [address] MCV (RBC) [Entitic vol] 90.0 fL Normal 81-99 [facility] Comment on above: Performed By: #### L 100.0100, L500.2500 ####[facility] [address] [place], [address] Monocytes/100 WBC (Bld) 8.6 % Normal 0-10 [facility] Comment on above: Performed By: #### L 100.0100, L500.2500 ####[facility] [address] [place], [address] Neutrophils/100 WBC (Bld) 65.2 % Normal 47-70 [facility] Comment on above: Performed By: #### L 100.0100, L500.2500 ####[facility] [address] [place], [address] Nucleated RBC (Bld) [#/Vol] 0 10*3/uL Normal 0-5 [facility] Comment on above: Performed By: #### L 100.0100, L500.2500 ####[facility] [address] [place], [address] Platelet mean volume (Bld) [Entitic vol] 10.3 fL Normal 6.2-12.0 [facility] Comment on above: Performed By: #### L 100.0100, L500.2500 ####[facility] [address] [place], [address] Platelets (Bld) [#/Vol] 110 10*3/uL Low 150-450 [facility] Comment on above: Performed By: #### L 100.0100, L500.2500 ####[facility] [address] [place], [address] RBC (Bld) [#/Vol] 3.81 10*6/uL Low 4.2-5.4 [facility] Comment on above: Performed By: #### L 100.0100, L500.2500 ####[facility] [address] [place], [address] RDW SD 57.4 fl High 35.1-43.9 [facility] Comment on above: Performed By: #### L 100.0100, L500.2500 ####[facility] [address] [place], [address] WBC (Bld) [#/Vol] 9.6 10*3/uL Normal 4.4-11.0 [facility] Comment on above: Performed By: #### L 100.0100, L500.2500 ####[facility] [address] [place], [address] Carbon dioxide, total [Moles /volume] in Central venous bloodOrdered By: Shabbir Ricks on 11-18-2024 CO2 [Moles/Vol] 25.2 mmol/L 21.0-32.0 [facility] Chloride assayOrdered By: Cintia Ricks on 11-18-2024 Chloride [Moles/Vol] 99 mmol/L 98-108 [facility] Eosinophil percentageOrdered By: Shabbir Ricks on 11-18-2024 Eosinophils/100 WBC (Bld) 1.9 % 0-5 [facility] Erythrocyte distribution wid th ratioOrdered By: Shabbir Ricks on 11-18-2024 Erythrocyte distribution width (RBC) [Ratio] 17.7 % High 11.6-14.6 [facility] Erythrocyte distribution wid th standard deviationOrdered By: Shabbir Ricks on 11-18-2024 Erythrocyte distribution width (RBC) [Ratio] 57.4 fl High 35.1-43.9 [facility] Glomerular filtration rate ( GFR) estimation/1.73 sq m using serum, plasma, or whole bOrdered By: Shabbir Ricks on 11-18-2024 GFR/1.73 sq M.predicted among non-blacks MDRD (S/P/Bld) [Vol rate/Area] 39 mL/min/{1.73_m2} Low >60 [facility] Comment on above: mL/min/1.73m2 CKD-EP I Creatinine Equation (2020) [facility] deOrdered By: Shabbir Ricks on 11-18-2024 Glucose [Mass/Vol] 127 mg/dL High 74-106 [facility] Comment on above: MANAGEMENT OF PATIEN T CARE PER NURSING PROTOCOL Hematocrit Auto (Bld) [Volum e fraction]Ordered By: Shabbir Ricks on 11-18-2024 Hematocrit (Bld) [Volume fraction] 34.3 % Low 37-47 [facility] Hemoglobin measurementOrdere d By: Shabbir Ricks on 11-18-2024 Hemoglobin (Bld) [Mass/Vol] 10.3 g/dL Low 12.0-15.0 [facility] Immature granulocytes/100 WB C Auto (Bld)Ordered By: Shabbir Ricks on 11-18-2024 Immature granulocytes/100 WBC (Bld) 0.300 % 0.0-0.9 [facility] Comment on above: IG% - Immature Granu locytes (promyelocytes, myelocytes and metamyelocytes) > 1% indicates that a LEFT SHIFT is Present. MCV (mean corpuscular volume ) determinationOrdered By: Shabbir Ricks on 11-18-2024 MCV (RBC) [Entitic vol] 90.0 fL 81-99 [facility] Mean corpuscular hemoglobin (MCH) determinationOrdered By: Shabbir Ricks on 11-18-2024 MCH (RBC) [Entitic mass] 27.0 pg 27.0-32.0 [facility] Mean corpuscular hemoglobin concentration (MCHC) determinationOrdered By: Shabbir Ricks on 11-18-2024 MCHC (RBC) [Mass/Vol] 30.0 g/dL Low 32-36 [facility] Mean platelet volume determi nationOrdered By: Shabbir Ricks on 11-18-2024 Platelet mean volume (Bld) [Entitic vol] 10.3 fL 6.2-12.0 [facility] Monocyte percentageOrdered B y: Shabbir Ricks on 11-18-2024 Monocytes/100 WBC (Bld) 8.6 % 0-10 [facility] Neutrophil percentageOrdered By: Shabbir Ricks on 11-18-2024 Neutrophils/100 WBC (Bld) 65.2 % 47-70 [facility] Nucleated red blood cell per centageOrdered By: Shabbir Ricks on 11-18-2024 Nucleated RBC/100 WBC (Bld) [Ratio] 0 % 0-5 [facility] Platelet countOrdered By: Cintia Ricks on 11-18-2024 Platelets (Bld) [#/Vol] 110 10*3/uL Low 150-450 [facility] Potassium measurement (mass/ volume)Ordered By: Shabbir Ricks on 11-18-2024 Potassium (Unsp spec) [Mass/Vol] 3.8 mmol/L 3.3-5.1 [facility] Comment on above: Hemolysis present, R esults could be affected. RBC Auto (Bld) [#/Vol]Ordere d By: Shabbir Ricks on 11-18-2024 RBC (Bld) [#/Vol] 3.81 10*6/uL Low 4.2-5.4 [facility] Serum creatinine measurement (mass/volume)Ordered By: Shabbir Ricks on 11-18-2024 Creatinine [Mass/Vol] 1.40 mg/dL High 0.70-1.20 [facility] Serum glucose measurement (m ass/volume)Ordered By: Shabbir Ricks on 11-18-2024 Glucose [Mass/Vol] 125 mg/dL High 70-99 [facility] Serum or plasma calcium kay urement (mass/volume)Ordered By: Shabbir Ricks on 11-18-2024 Calcium [Mass/Vol] 8.7 mg/dL 7.6-11.0 [facility] Serum or plasma urea nitroge n measurement (mass/volume)Ordered By: Shabbir Ricks on 11-18-2024 Urea nitrogen [Mass/Vol] 45 mg/dL High 4-19 [facility] Sodium levelOrdered By: Lux Ricks on 11-18-2024 Sodium [Moles/Vol] 138 mmol/L 133-145 [facility] White blood cell (WBC) count Ordered By: Shabbir Ricks on 11-18-2024 WBC (Bld) [#/Vol] 9.6 10*3/uL 4.4-11.0 [facility] 12 Lead EKGon 11-17-2024 12 Lead EKG Normal [facility] Basic Metabolic Profile (BMP )on 11-17-2024 BUN/CRE 30.6 RATIO High 10-20 [facility] Comment on above: Performed By: #### L 100.0100, L500.2500 ####[facility] [address] [place], [address] Calcium [Mass/Vol] 8.3 mg/dL Normal 7.6-11.0 [facility] Comment on above: Performed By: #### L 100.0100, L500.2500 ####[facility] [address] [place], [address] Chloride [Moles/Vol] 99 mmol/L Normal 98-108 [facility] Comment on above: Performed By: #### L 100.0100, L500.2500 ####[facility] [address] [place], [address] CO2 [Moles/Vol] 25.8 mmol/L Normal 21.0-32.0 [facility] Comment on above: Performed By: #### L 100.0100, L500.2500 ####[facility] [address] [place], [address] Creatinine [Mass/Vol] 1.55 mg/dL High 0.70-1.20 [facility] Comment on above: Performed By: #### L 100.0100, L500.2500 ####[facility] [address] [place], [address] ECRCL 39.03 ml/min Low 50-250 [facility] Comment on above: Performed By: #### L 100.0100, L500.2500 ####[facility] [address] [place], [address] GAP 13 Normal 5-15 [facility] Comment on above: Performed By: #### L 100.0100, L500.2500 ####[facility] [address] [place], [address] GFR/1.73 sq M.predicted among non-blacks MDRD (S/P/Bld) [Vol rate/Area] 35 mL/min/{1.73_m2} Low >60 [facility] Comment on above: Result Comment: mL/m in/1.73m2 CKD-EPI Creatinine Equation (2020) Performed By: #### L 100.0100, L500.2500 ####[facility] [address] [place], [address] Glucose [Mass/Vol] 118 mg/dL High 70-99 [facility] Comment on above: Performed By: #### L 100.0100, L500.2500 ####[facility] [address] [place], [address] Potassium [Moles/Vol] 3.2 mmol/L Low 3.3-5.1 [facility] Comment on above: Performed By: #### L 100.0100, L500.2500 ####[facility] [address] [place], [address] Sodium [Moles/Vol] 137 mmol/L Normal 133-145 [facility] Comment on above: Performed By: #### L 100.0100, L500.2500 ####[facility] [address] [place], [address] Urea nitrogen [Mass/Vol] 48 mg/dL High 4-19 [facility] Comment on above: Performed By: #### L 100.0100, L500.2500 ####[facility] [address] [place], [address] Bedside Glucoseon 11-17-2024 FINGERSTICK GLU 149 mg/dL High 74-106 [facility] Comment on above: Result Comment: ASHU GEMENT OF PATIENT CARE PER NURSING PROTOCOL Performed By: #### L 501.080 ####[facility] [address] [place], [address] FINGERSTICK GLU 114 mg/dL High 74-106 [facility] Comment on above: Result Comment: ASHU GEMENT OF PATIENT CARE PER NURSING PROTOCOL Performed By: #### L 501.080 ####[facility] [address] [place], [address] FINGERSTICK GLU 109 mg/dL High 74-106 [facility] Comment on above: Result Comment: ASHU GEMENT OF PATIENT CARE PER NURSING PROTOCOL Performed By: #### L 501.080 ####[facility] [address] [place], [address] FINGERSTICK GLU 110 mg/dL High 74-106 [facility] Comment on above: Result Comment: ASHU GEMENT OF PATIENT CARE PER NURSING PROTOCOL Performed By: #### L 501.080 ####[facility] [address] [place], [address] FINGERSTICK GLU 149 mg/dL High 74-106 [facility] Comment on above: Result Comment: ASHU GEMENT OF PATIENT CARE PER NURSING PROTOCOL Performed By: #### L 501.080 ####[facility] [address] [place], [address] Blood manual differential co mment interpretation (narrative result)Ordered By: Manuel Campuzano on 11-17-2024 Manual differential comment Jd (Bld) [Interp] SCANNED [facility] CBC W/Diff, Automatedon 11-07 PLT EST MOD DEC Normal ADEQ [facility] Comment on above: Performed By: #### L 100.0100, L500.2500 ####[facility] [address] [place], [address] SMEAR COMMENT SCANNED Normal [facility] Comment on above: Performed By: #### L 100.0100, L500.2500 ####[facility] [address] [place], [address] EGD Reporton 11-17-2024 EGD Report Normal [facility] Electrocardiogram reportOrde red By: Nino Gonzalez on 11-17-2024 EKG study [facility] [address] [place] [address] 12 Lead EKG 11/17/24 0426 MR#: [id number] Acct: [id number] Name: DARYN GUILLERMO Rep #:[id number] 5 : 1945 78 From: Nino Gonzalez MD Attending Dr: Dr. Shabbir Ricks MD Status: ADM IN Ordering Dr: Manuel Campuzano MD Date: 11/17/24 Location: [facility] Sex: F C Admitted: 11/09/24 Test Reason : AM EKG Blood Pressure : */* mmHG Vent. Rate : 75 BPM Atrial Rate : * BPM P-R Int : * ms QRS Dur : 124 ms QT Int : 396 ms P-R-T Axes : * -41 140 degrees QTcB Int : 442 ms Atrial fibrillation with premature ventricular or aberrantly conducted complexes Left axis deviation Non-specific intra-ventricular conduction delay Minimal voltage criteria for LVH, may be normal variant ( [place] product ) Confirmed by LISA MD, NINO ([id number]), editorial cartoonist GIANNA DILLON ([id number]) on 11/17/2024 1:01:22 PM Referred By: Confirmed By: NINO GONZALEZ MD 11/17/24 1301 Date _ Nino Gonzalez MD CC: Dr. Manuel Campuzano MD; Dr. Shabbir Ricks MD; Dr. Delgado Amaro, DO~ Signed [facility] Other Phone: MR/CON.PCM.GIon 11-17-2024 MR/CON.PCM.GI Normal [facility] MR/OP.PROVATon 11-17-2024 MR/OP.PROVAT Normal [facility] MR/POSTOP.ANEon 11-17-2024 MR/POSTOP.ANE Normal [facility] MR/[id number] 11-17-2024 MR/POSTOPAN2 Normal [facility] Platelet estimateOrdered By: Manuel Campuzano on 11-17-2024 Platelets LM Ql (Bld) MOD DEC ADEQ [facility] Basic Metabolic Profile (BMP )on 11-16-2024 BUN/CRE 29.0 RATIO High 10-20 [facility] Comment on above: Performed By: #### L 500.2500 ####[facility] [address] [place], [address] Calcium [Mass/Vol] 8.3 mg/dL Normal 7.6-11.0 [facility] Comment on above: Performed By: #### L 500.2500 ####[facility] [address] [place], [address] Chloride [Moles/Vol] 96 mmol/L Low 98-108 [facility] Comment on above: Performed By: #### L 500.2500 ####[facility] [address] [place], [address] CO2 [Moles/Vol] 30.3 mmol/L Normal 21.0-32.0 [facility] Comment on above: Performed By: #### L 500.2500 ####[facility] [address] [place], [address] Creatinine [Mass/Vol] 1.93 mg/dL High 0.70-1.20 [facility] Comment on above: Performed By: #### L 500.2500 ####[facility] [address] [place], [address] ECRCL 30.83 ml/min Low 50-250 [facility] Comment on above: Performed By: #### L 500.2500 ####[facility] [address] [place], [address] GAP 13 Normal 5-15 [facility] Comment on above: Performed By: #### L 500.2500 ####[facility] [address] [place], [address] GFR/1.73 sq M.predicted among non-blacks MDRD (S/P/Bld) [Vol rate/Area] 27 mL/min/{1.73_m2} Low >60 [facility] Comment on above: Result Comment: mL/m in/1.73m2 CKD-EPI Creatinine Equation (2020) Performed By: #### L 500.2500 ####[facility] [address] [place], [address] Glucose [Mass/Vol] 117 mg/dL High 70-99 [facility] Comment on above: Performed By: #### L 500.2500 ####[facility] [address] [place], [address] Potassium [Moles/Vol] 3.4 mmol/L Normal 3.3-5.1 [facility] Comment on above: Performed By: #### L 500.2500 ####[facility] [address] [place], [address] Sodium [Moles/Vol] 140 mmol/L Normal 133-145 [facility] Comment on above: Performed By: #### L 500.2500 ####[facility] [address] [place], [address] Urea nitrogen [Mass/Vol] 56 mg/dL High 4-19 [facility] Comment on above: Performed By: #### L 500.2500 ####[facility] [address] [place], [address] Bedside Glucoseon 11-16-2024 FINGERSTICK GLU 152 mg/dL High 74-106 [facility] Comment on above: Result Comment: ASHU GEMENT OF PATIENT CARE PER NURSING PROTOCOL Performed By: #### L 501.080 ####[facility] [address] [place], [address] FINGERSTICK GLU 174 mg/dL High 74-106 [facility] Comment on above: Result Comment: ASHU GEMENT OF PATIENT CARE PER NURSING PROTOCOL Performed By: #### L 501.080 ####[facility] [address] [place], [address] FINGERSTICK GLU 118 mg/dL High 74-106 [facility] Comment on above: Result Comment: ASHU GEMENT OF PATIENT CARE PER NURSING PROTOCOL Performed By: #### L 501.080 ####[facility] [address] [place], [address] Basic Metabolic Profile (BMP )on 11-15-2024 BUN/CRE 25.6 RATIO High 10-20 [facility] Comment on above: Performed By: #### L 500.2500 ####[facility] [address] [place], [address] Calcium [Mass/Vol] 8.0 mg/dL Normal 7.6-11.0 [facility] Comment on above: Performed By: #### L 500.2500 ####[facility] [address] [place], [address] Chloride [Moles/Vol] 95 mmol/L Low 98-108 [facility] Comment on above: Performed By: #### L 500.2500 ####[facility] [address] [place], [address] CO2 [Moles/Vol] 31.3 mmol/L Normal 21.0-32.0 [facility] Comment on above: Performed By: #### L 500.2500 ####[facility] [address] [place], [address] Creatinine [Mass/Vol] 2.49 mg/dL High 0.70-1.20 [facility] Comment on above: Performed By: #### L 500.2500 ####[facility] [address] [place], [address] ECRCL 23.89 ml/min Low 50-250 [facility] Comment on above: Performed By: #### L 500.2500 ####[facility] [address] [place], [address] GAP 12 Normal 5-15 [facility] Comment on above: Performed By: #### L 500.2500 ####[facility] [address] [place], [address] GFR/1.73 sq M.predicted among non-blacks MDRD (S/P/Bld) [Vol rate/Area] 20 mL/min/{1.73_m2} Low >60 [facility] Comment on above: Result Comment: mL/m in/1.73m2 CKD-EPI Creatinine Equation (2020) Performed By: #### L 500.2500 ####[facility] [address] [place], [address] Glucose [Mass/Vol] 157 mg/dL High 70-99 [facility] Comment on above: Performed By: #### L 500.2500 ####[facility] [address] [place], [address] Potassium [Moles/Vol] 2.9 mmol/L Low 3.3-5.1 [facility] Comment on above: Performed By: #### L 500.2500 ####[facility] [address] [place], [address] Sodium [Moles/Vol] 138 mmol/L Normal 133-145 [facility] Comment on above: Performed By: #### L 500.2500 ####[facility] [address] [place], [address] Urea nitrogen [Mass/Vol] 64 mg/dL High 4-19 [facility] Comment on above: Performed By: #### L 500.2500 ####[facility] [address] [place], [address] Bedside Glucoseon 11-15-2024 FINGERSTICK GLU 134 mg/dL High 74-106 [facility] Comment on above: Result Comment: ASHU GEMENT OF PATIENT CARE PER NURSING PROTOCOL Performed By: #### L 501.080 ####[facility] [address] [place], [address] FINGERSTICK GLU 135 mg/dL High 74-106 [facility] Comment on above: Result Comment: ASHU GEMENT OF PATIENT CARE PER NURSING PROTOCOL Performed By: #### L 501.080 ####[facility] [address] [place], [address] FINGERSTICK GLU 140 mg/dL High 74-106 [facility] Comment on above: Result Comment: ASHU GEMENT OF PATIENT CARE PER NURSING PROTOCOL Performed By: #### L 501.080 ####[facility] [address] [place], [address] FINGERSTICK GLU 150 mg/dL High 74-106 [facility] Comment on above: Result Comment: ASHU GEMENT OF PATIENT CARE PER NURSING PROTOCOL Performed By: #### L 501.080 ####[facility] [address] [place], [address] Bedside Glucoseon 11-14-2024 FINGERSTICK GLU 138 mg/dL High [address] [place] [address] Comment on above: Result Comment: ASHU GEMENT OF PATIENT CARE PER NURSING PROTOCOL Performed By: #### L 501.080 ####[facility] [address] [place], [address] FINGERSTICK GLU 173 mg/dL High [facility]106 [facility] Comment on above: Result Comment: ASHU GEMENT OF PATIENT CARE PER NURSING PROTOCOL Performed By: #### L 501.080 ####[facility] [address] [place], [address] FINGERSTICK GLU 161 mg/dL High [facility]106 [facility] Comment on above: Result Comment: ASHU GEMENT OF PATIENT CARE PER NURSING PROTOCOL Performed By: #### L 501.080 ####[facility] [address] [place], [address] FINGERSTICK GLU 162 mg/dL High [address] [place] [address] Comment on above: Result Comment: ASHU GEMENT OF PATIENT CARE PER NURSING PROTOCOL Performed By: #### L 501.080 ####[facility] [address] [place], [address] FINGERSTICK GLU 191 mg/dL High [address] [place] [address] Comment on above: Result Comment: ASHU GEMENT OF PATIENT CARE PER NURSING PROTOCOL Performed By: #### L 501.080 ####[facility] [address] [place], [address] Bilirubin, totalOrdered By: Preeti Wood on 11-14-2024 Bilirubin [Mass/Vol] 0.87 mg/dL 0.00-1.30 [facility] CBC W/Diff, Automatedon Absolute Lymph 1.79 X10 3/uL Normal 0.83-4.51 [facility] Comment on above: Performed By: #### L 100.0100, L500.4050 ####[facility] [address] [place], [address] Absolute Neut 6.3 X10 3/uL Normal 2.0-7.7 [facility] Comment on above: Performed By: #### L 100.0100, L500.4050 ####[facility] [address] [place], [address] Basophils/100 WBC (Bld) 0.1 % Normal 0-1 [facility] Comment on above: Performed By: #### L 100.0100, L500.4050 ####[facility] [address] [place], [address] Eosinophils/100 WBC (Bld) 0.8 % Normal 0-5 [facility] Comment on above: Performed By: #### L 100.0100, L500.4050 ####[facility] [address] [place], [address] Erythrocyte distribution width (RBC) [Ratio] 18.4 % High 11.6-14.6 [facility] Comment on above: Performed By: #### L 100.0100, L500.4050 ####[facility] [address] [place], [address] Hematocrit (Bld) [Volume fraction] 32.2 % Low 37-47 [facility] Comment on above: Performed By: #### L 100.0100, L500.4050 ####[facility] [address] [place], [address] Hemoglobin (Bld) [Mass/Vol] 9.7 g/dL Low 12.0-15.0 [facility] Comment on above: Performed By: #### L 100.0100, L500.4050 ####[facility] [address] [place], [address] IG% 0.700 Normal 0.0-0.9 [facility] Comment on above: Result Comment: IG% - Immature Granulocytes (promyelocytes, myelocytes andmetamyelocytes) > 1% indicates that a LEFT SHIFT is Present. Performed By: #### L 100.0100, L500.4050 ####[facility] [address] [place], [address] Lymphocytes/100 WBC (Bld) 20.0 % Normal 19-41 [facility] Comment on above: Performed By: #### L 100.0100, L500.4050 ####[facility] [address] [place], [address] MCH (RBC) [Entitic mass] 26.9 pg Low 27.0-32.0 [facility] Comment on above: Performed By: #### L 100.0100, L500.4050 ####[facility] [address] [place], [address] MCHC (RBC) [Mass/Vol] 30.1 g/dL Low 32-36 [facility] Comment on above: Performed By: #### L 100.0100, L500.4050 ####[facility] [address] [place], [address] MCV (RBC) [Entitic vol] 89.4 fL Normal 81-99 [facility] Comment on above: Performed By: #### L 100.0100, L500.4050 ####[facility] [address] [place], [address] Monocytes/100 WBC (Bld) 7.6 % Normal 0-10 [facility] Comment on above: Performed By: #### L 100.0100, L500.4050 ####[facility] [address] [place], [address] Neutrophils/100 WBC (Bld) 70.8 % High 47-70 [facility] Comment on above: Performed By: #### L 100.0100, L500.4050 ####[facility] [address] [place], [address] Nucleated RBC (Bld) [#/Vol] 0 10*3/uL Normal 0-5 [facility] Comment on above: Performed By: #### L 100.0100, L500.4050 ####[facility] [address] [place], [address] Platelet mean volume (Bld) [Entitic vol] 10.1 fL Normal 6.2-12.0 [facility] Comment on above: Performed By: #### L 100.0100, L500.4050 ####[facility] [address] [place], [address] Platelets (Bld) [#/Vol] 129 10*3/uL Low 150-450 [facility] Comment on above: Performed By: #### L 100.0100, L500.4050 ####[facility] [address] [place], [address] RBC (Bld) [#/Vol] 3.60 10*6/uL Low 4.2-5.4 [facility] Comment on above: Performed By: #### L 100.0100, L500.4050 ####[facility] [address] [place], [address] RDW SD 54.4 fl High 35.1-43.9 [facility] Comment on above: Performed By: #### L 100.0100, L500.4050 ####[facility] [address] [place], [address] WBC (Bld) [#/Vol] 8.9 10*3/uL Normal 4.4-11.0 [facility] Comment on above: Performed By: #### L 100.0100, L500.4050 ####[facility] [address] [place], [address] Comprehensive Metabolic Prof ilon 11-14-2024 ALT [Catalytic activity/Vol] 778 U/L High <=34 [facility] Comment on above: Performed By: #### L 100.0100, L500.4050 ####[facility] [address] [place], [address] AST [Catalytic activity/Vol] 1001 U/L High <=31 [facility] Comment on above: Performed By: #### L 100.0100, L500.4050 ####[facility] [address] [place], [address] Creatinine, Urine (random)on 11-14-2024 UR CREAT 98.40 mg/dL Normal 28.00-217.00 [facility] Comment on above: Performed By: #### L 501.1200, L501.5500 ####[facility] [address] [place], [place], [address] Laboratory - Chemistry and C hemistry - challengeOrdered By: Preeti Wood on 11-14-2024 AST [Catalytic activity/Vol] 1001 U/L High <32 [facility] Modified Barium Swallow Stud yon 11-14-2024 Modified Barium Swallow Study Normal [facility] Random urine creatinine kay urement (mass/volume)Ordered By: Radha Kee on 11-14-2024 Creatinine Unsp time (U) [Mass/Vol] 98.40 mg/dL 28.00-217.00 [facility] Serum globulin measurementOr dered By: Preeti Wood on 11-14-2024 Globulin (S) [Mass/Vol] 2.6 g/dL 2.2-4.2 [facility] Serum or plasma alanine sousa otransferase (ALT) measurementOrdered By: Preeti Wood on 11-14-2024 ALT [Catalytic activity/Vol] 778 U/L High <35 [facility] Serum or plasma albumin kay urement (mass/volume)Ordered By: Preeti Wood on 11-14-2024 Albumin [Mass/Vol] 3.2 g/dL Low 3.4-4.8 [facility] Serum or plasma albumin/glob ulin mass ratioOrdered By: Preeti Wood on 11-14-2024 Albumin/Globulin [Mass ratio] 1.2 {ratio} 0.9-2.4 [facility] Serum or plasma alkaline radha sphatase measurementOrdered By: Preeti Wood on 11-14-2024 ALP [Catalytic activity/Vol] 230 U/L High 35-104 [facility] Total proteinOrdered By: Allyssa barilrommel Nina on 11-14-2024 Protein [Mass/Vol] 5.8 g/dL Low 5.9-8.4 [facility] Urine Sodiumon 11-14-2024 UR NA < 20 Normal Not Establ. [facility] Comment on above: Performed By: #### L 501.1200, L501.5500 ####[facility] [address] [place], [address] Urine sodium measurement (mo les/volume)Ordered By: Radha Kee on 11-14-2024 Sodium (U) [Moles/Vol] mmol/L Not Establ. [facility] Basic Metabolic Profile (BMP )on 11-13-2024 BUN/CRE 20.1 RATIO High 10-20 [facility] Comment on above: Performed By: #### L 100.0100, L500.2500 ####[facility] [address] [place], [address] Calcium [Mass/Vol] 7.9 mg/dL Normal 7.6-11.0 [facility] Comment on above: Performed By: #### L 100.0100, L500.2500 ####[facility] [address] [place], [address] Chloride [Moles/Vol] 93 mmol/L Low 98-108 [facility] Comment on above: Performed By: #### L 100.0100, L500.2500 ####[facility] [address] [place], [address] CO2 [Moles/Vol] 22.7 mmol/L Normal 21.0-32.0 [facility] Comment on above: Performed By: #### L 100.0100, L500.2500 ####[facility] [address] [place], [address] Creatinine [Mass/Vol] 3.47 mg/dL High 0.70-1.20 [facility] Comment on above: Performed By: #### L 100.0100, L500.2500 ####[facility] [address] [place], [address] ECRCL 16.82 ml/min Low 50-250 [facility] Comment on above: Performed By: #### L 100.0100, L500.2500 ####[facility] [address] [place], [address] GAP 20 High 5-15 [facility] Comment on above: Performed By: #### L 100.0100, L500.2500 ####[facility] [address] [place], [address] GFR/1.73 sq M.predicted among non-blacks MDRD (S/P/Bld) [Vol rate/Area] 13 mL/min/{1.73_m2} Low >60 [facility] Comment on above: Result Comment: mL/m in/1.73m2 CKD-EPI Creatinine Equation (2020) Performed By: #### L 100.0100, L500.2500 ####[facility] [address] [place], [address] Glucose [Mass/Vol] 195 mg/dL High 70-99 [facility] Comment on above: Performed By: #### L 100.0100, L500.2500 ####[facility] [address] [place], [address] Potassium [Moles/Vol] 4.6 mmol/L Normal 3.3-5.1 [facility] Comment on above: Performed By: #### L 100.0100, L500.2500 ####[facility] [address] [place], [address] Sodium [Moles/Vol] 135 mmol/L Normal 133-145 [facility] Comment on above: Performed By: #### L 100.0100, L500.2500 ####[facility] [address] [place], [address] Urea nitrogen [Mass/Vol] 70 mg/dL High 4-19 [facility] Comment on above: Performed By: #### L 100.0100, L500.2500 ####[facility] [address] [place], [address] Bedside Glucoseon 11-13-2024 FINGERSTICK GLU 174 mg/dL High 74-106 [facility] Comment on above: Result Comment: ASHU GEMENT OF PATIENT CARE PER NURSING PROTOCOL Performed By: #### L 501.080 ####[facility] [address] [place], [address] FINGERSTICK GLU 168 mg/dL High 74-106 [facility] Comment on above: Result Comment: ASHU GEMENT OF PATIENT CARE PER NURSING PROTOCOL Performed By: #### L 501.080 ####[facility] [address] [place], [address] FINGERSTICK GLU 193 mg/dL High 74-106 [facility] Comment on above: Result Comment: ASUH GEMENT OF PATIENT CARE PER NURSING PROTOCOL Performed By: #### L 501.080 ####[facility] [address] [place], [address] CBC W/Diff, Automatedon 08-0 Absolute Lymph 1.83 X10 3/uL Normal 0.83-4.51 [facility] Comment on above: Performed By: #### L 100.0100, L500.2500 ####[facility] [address] [place], [address] Absolute Neut 9.2 X10 3/uL High 2.0-7.7 [facility] Comment on above: Performed By: #### L 100.0100, L500.2500 ####[facility] [address] [place], [address] Basophils/100 WBC (Bld) 0.1 % Normal 0-1 [facility] Comment on above: Performed By: #### L 100.0100, L500.2500 ####[facility] [address] [place], [address] Eosinophils/100 WBC (Bld) 0.2 % Normal 0-5 [facility] Comment on above: Performed By: #### L 100.0100, L500.2500 ####[facility] [address] [place], [address] Erythrocyte distribution width (RBC) [Ratio] 18.0 % High 11.6-14.6 [facility] Comment on above: Performed By: #### L 100.0100, L500.2500 ####[facility] [address] [place], [address] Hematocrit (Bld) [Volume fraction] 33.3 % Low 37-47 [facility] Comment on above: Performed By: #### L 100.0100, L500.2500 ####[facility] [address] [place], [address] Hemoglobin (Bld) [Mass/Vol] 10.4 g/dL Low 12.0-15.0 [facility] Comment on above: Performed By: #### L 100.0100, L500.2500 ####[facility] [address] [place], [address] IG% 0.600 Normal 0.0-0.9 [facility] Comment on above: Result Comment: IG% - Immature Granulocytes (promyelocytes, myelocytes andmetamyelocytes) > 1% indicates that a LEFT SHIFT is Present. Performed By: #### L 100.0100, L500.2500 ####[facility] [address] [place], [address] Lymphocytes/100 WBC (Bld) 15.2 % Low 19-41 [facility] Comment on above: Performed By: #### L 100.0100, L500.2500 ####[facility] [address] [place], [address] MCH (RBC) [Entitic mass] 27.4 pg Normal 27.0-32.0 [facility] Comment on above: Performed By: #### L 100.0100, L500.2500 ####[facility] [address] [place], [address] MCHC (RBC) [Mass/Vol] 31.2 g/dL Low 32-36 [facility] Comment on above: Performed By: #### L 100.0100, L500.2500 ####[facility] [address] [place], [address] MCV (RBC) [Entitic vol] 87.6 fL Normal 81-99 [facility] [facility] Comment on above: Performed By: #### L 100.0100, L500.2500 ####[facility] [address] [place], [address] Monocytes/100 WBC (Bld) 7.3 % Normal 0-10 [facility] Comment on above: Performed By: #### L 100.0100, L500.2500 ####[facility] [address] [place], [address] Neutrophils/100 WBC (Bld) 76.6 % High 47-70 [facility] Comment on above: Performed By: #### L 100.0100, L500.2500 ####[facility] [address] [place], [address] Nucleated RBC (Bld) [#/Vol] 0.2 10*3/uL Normal 0-5 [facility] Comment on above: Performed By: #### L 100.0100, L500.2500 ####[facility] [address] [place], [address] Platelet mean volume (Bld) [Entitic vol] 10.1 fL Normal 6.2-12.0 [facility] Comment on above: Performed By: #### L 100.0100, L500.2500 ####[facility] [address] [place], [address] Platelets (Bld) [#/Vol] 175 10*3/uL Normal 150-450 [facility] Comment on above: Performed By: #### L 100.0100, L500.2500 ####[facility] [address] [place], [address] RBC (Bld) [#/Vol] 3.80 10*6/uL Low 4.2-5.4 [facility] Comment on above: Performed By: #### L 100.0100, L500.2500 ####[facility] [address] [place], [address] RDW SD 53.2 fl High 35.1-43.9 [facility] Comment on above: Performed By: #### L 100.0100, L500.2500 ####[facility] [address] [place], [address] WBC (Bld) [#/Vol] 12.0 10*3/uL High 4.4-11.0 [facility] Comment on above: Performed By: #### L 100.0100, L500.2500 ####[facility] [address] [place], [address] Chest 1 View (Portable)on Chest 1 View (Portable) Normal [facility] Basic Metabolic Profile (BMP )on 11-12-2024 BUN/CRE 19.1 RATIO Normal 10-20 [facility] Comment on above: Performed By: #### L 500.2500 ####[facility] [address] [place], [address] Calcium [Mass/Vol] 8.6 mg/dL Normal 7.6-11.0 [facility] Comment on above: Performed By: #### L 500.2500 ####[facility] [address] [place], [address] Chloride [Moles/Vol] 95 mmol/L Low 98-108 [facility] Comment on above: Performed By: #### L 500.2500 ####[facility] [address] [place], [address] CO2 [Moles/Vol] 19.6 mmol/L Low 21.0-32.0 [facility] Comment on above: Performed By: #### L 500.2500 ####[facility] [address] [place], [address] Creatinine [Mass/Vol] 3.18 mg/dL High 0.70-1.20 [facility] Comment on above: Performed By: #### L 500.2500 ####[facility] [address] [place], [address] ECRCL 18.22 ml/min Low 50-250 [facility] Comment on above: Performed By: #### L 500.2500 ####[facility] [address] [place], [address] GAP 23 High 5-15 [facility] Comment on above: Performed By: #### L 500.2500 ####[facility] [address] [place], [address] GFR/1.73 sq M.predicted among non-blacks MDRD (S/P/Bld) [Vol rate/Area] 15 mL/min/{1.73_m2} Low >60 [facility] Comment on above: Result Comment: mL/m in/1.73m2 CKD-EPI Creatinine Equation (2020) Performed By: #### L 500.2500 ####[facility] [address] [place], [address] Glucose [Mass/Vol] 163 mg/dL High 70-99 [facility] Comment on above: Performed By: #### L 500.2500 ####[facility] [address] [place], [address] Potassium [Moles/Vol] 5.1 mmol/L Normal 3.3-5.1 [facility] Comment on above: Performed By: #### L 500.2500 ####[facility] [address] [place], [address] Sodium [Moles/Vol] 137 mmol/L Normal 133-145 [facility] Comment on above: Performed By: #### L 500.2500 ####[facility] [address] [place], [address] Urea nitrogen [Mass/Vol] 61 mg/dL High 4-19 [facility] Comment on above: Performed By: #### L 500.2500 ####[facility] [address] [place], [address] BUN/CRE 18.0 RATIO Normal 10-20 [facility] Comment on above: Performed By: #### L 500.2500 ####[facility] [address] [place], [address] Calcium [Mass/Vol] 9.3 mg/dL Normal 7.6-11.0 [facility] Comment on above: Performed By: #### L 500.2500 ####[facility] [address] [place], [address] Chloride [Moles/Vol] 93 mmol/L Low 98-108 [facility] Comment on above: Performed By: #### L 500.2500 ####[facility] [address] [place], [address] CO2 [Moles/Vol] 15.5 mmol/L Low 21.0-32.0 [facility] Comment on above: Performed By: #### L 500.2500 ####[facility] [address] [place], [address] Creatinine [Mass/Vol] 3.05 mg/dL High 0.70-1.20 [facility] Comment on above: Performed By: #### L 500.2500 ####[facility] [address] [place], [address] ECRCL 19.00 ml/min Low 50-250 [facility] Comment on above: Performed By: #### L 500.2500 ####[facility] [address] [place], [address] GAP 27 High 5-15 [facility] Comment on above: Performed By: #### L 500.2500 ####[facility] [address] [place], [address] GFR/1.73 sq M.predicted among non-blacks MDRD (S/P/Bld) [Vol rate/Area] 15 mL/min/{1.73_m2} Low >60 [facility] Comment on above: Result Comment: mL/m in/1.73m2 CKD-EPI Creatinine Equation (2020) Performed By: #### L 500.2500 ####[facility] [address] [place], [address] Glucose [Mass/Vol] 108 mg/dL High 70-99 [facility] Comment on above: Performed By: #### L 500.2500 ####[facility] [address] [place], [address] Potassium [Moles/Vol] 6.3 mmol/L Invalid Interpretation Code 3.3-5.1 [facility] Comment on above: Result Comment: Hemo lysis present, Results??could be affected.??Critical Result(s) Called to: Daniel GUSMAN ([facility]) by:Darlin??Results read back by same. Performed By: #### L 500.2500 ####[facility] [address] [place], [address] Sodium [Moles/Vol] 135 mmol/L Normal 133-145 [facility] Comment on above: Performed By: #### L 500.2500 ####[facility] [address] [place], [address] Urea nitrogen [Mass/Vol] 55 mg/dL High 4-19 [facility] Comment on above: Performed By: #### L 500.2500 ####[facility] [address] [place], [address] Potassium [Moles/Vol] 6.3 mmol/L Invalid Interpretation Code 3.3-5.1 [facility] Comment on above: Result Comment: Hemo lysis present, Results??could be affected.??Critical Result(s) Called at: by:??Results read back bysame.Hemolysis present, Results??could be affected.??Critical Result(s) Called at: 0629 by:??STELLA SWARTZ Results read back by same. AMENDED REPORT 11/12/24 0629 K previously reported as: 6.3 *H mmol/LHemolysis present, Results??could be affected.??Critical Result(s) Called at: by:??Results read back bysame. Performed By: #### L 500.2500 ####[facility] [address] [place], [place], [address] Bedside Glucoseon 11-12-2024 FINGERSTICK GLU 185 mg/dL High 74-106 [facility] Comment on above: Result Comment: ASHU GEMENT OF PATIENT CARE PER NURSING PROTOCOL Performed By: #### L 501.080 ####[facility] [address] [place], [address] FINGERSTICK GLU 171 mg/dL High 74-106 [facility] Comment on above: Result Comment: ASHU GEMENT OF PATIENT CARE PER NURSING PROTOCOL Performed By: #### L 501.080 ####[facility] [address] [place], [address] FINGERSTICK GLU 110 mg/dL High 74-106 [facility] Comment on above: Result Comment: ASHU GEMENT OF PATIENT CARE PER NURSING PROTOCOL Performed By: #### L 501.080 ####[facility] [address] [place], [address] Basic Metabolic Profile (BMP )on 11-11-2024 BUN/CRE 21.8 RATIO High 10-20 [facility] Comment on above: Performed By: #### L 500.2500 ####[facility] [address] [place], [address] Calcium [Mass/Vol] 9.3 mg/dL Normal 7.6-11.0 [facility] Comment on above: Performed By: #### L 500.2500 ####[facility] [address] [place], [address] Chloride [Moles/Vol] 99 mmol/L Normal 98-108 [facility] Comment on above: Performed By: #### L 500.2500 ####[facility] [address] [place], [address] CO2 [Moles/Vol] 22.8 mmol/L Normal 21.0-32.0 [facility] Comment on above: Performed By: #### L 500.2500 ####[facility] [address] [place], [address] Creatinine [Mass/Vol] 2.11 mg/dL High 0.70-1.20 [facility] Comment on above: Performed By: #### L 500.2500 ####[facility] [address] [place], [address] ECRCL 27.55 ml/min Low 50-250 [facility] Comment on above: Performed By: #### L 500.2500 ####[facility] [address] [place], [address] GAP 18 High 5-15 [facility] Comment on above: Performed By: #### L 500.2500 ####[facility] [address] [place], [address] GFR/1.73 sq M.predicted among non-blacks MDRD (S/P/Bld) [Vol rate/Area] 24 mL/min/{1.73_m2} Low >60 [facility] Comment on above: Result Comment: mL/m in/1.73m2 CKD-EPI Creatinine Equation (2020) Performed By: #### L 500.2500 ####[facility] [address] [place], [address] Glucose [Mass/Vol] 91 mg/dL Normal 70-99 [facility] Comment on above: Performed By: #### L 500.2500 ####[facility] [address] [place], [address] Potassium [Moles/Vol] 4.5 mmol/L Normal 3.3-5.1 [facility] Comment on above: Performed By: #### L 500.2500 ####[facility] [address] [place], [address] Sodium [Moles/Vol] 140 mmol/L Normal 133-145 [facility] Comment on above: Performed By: #### L 500.2500 ####[facility] [address] [place], [address] Urea nitrogen [Mass/Vol] 46 mg/dL High 4-19 [facility] Comment on above: Performed By: #### L 500.2500 ####[facility] [address] [place], [address] Bedside Glucoseon 11-11-2024 FINGERSTICK GLU 85 mg/dL Normal 74-106 [facility] Comment on above: Result Comment: ASHU GEMENT OF PATIENT CARE PER NURSING PROTOCOL Performed By: #### L 501.080 ####[facility] [address] [place], [address] FINGERSTICK GLU 93 mg/dL Normal 74-106 [facility] Comment on above: Result Comment: ASHU GEMENT OF PATIENT CARE PER NURSING PROTOCOL Performed By: #### L 501.080 ####[facility] [address] [place], [address] FINGERSTICK GLU 111 mg/dL High 74-106 [facility] Comment on above: Result Comment: ASHU GEMENT OF PATIENT CARE PER NURSING PROTOCOL Performed By: #### L 501.080 ####[facility] [address] [place], [address] FINGERSTICK GLU 79 mg/dL Normal 74-106 [facility] Comment on above: Result Comment: ASHU GEMENT OF PATIENT CARE PER NURSING PROTOCOL Performed By: #### L 501.080 ####[facility] [address] [place], [address] FINGERSTICK GLU 68 mg/dL Low 74-106 [facility] Comment on above: Result Comment: ASHU GEMENT OF PATIENT CARE PER NURSING PROTOCOL Performed By: #### L 501.080 ####[facility] [address] [place], [address] Bilirubin Test strip Ql (U)O rdered By: Jeri Rowland on 08-05-2025 Bilirubin Ql (U) 1 mg/dL High Negative [facility] Comment on above: COLOR OF URINE MAY A FFECT DIPSTICK RESULTS. Chest 1 View (Portable)on Chest 1 View (Portable) Normal [facility] Consultation - Nephrologyon 11-11-2024 Consultation - Nephrology Normal [facility] Electrocardiogram reportOrde red By: Nino Gonzalez on 11-11-2024 EKG study [facility] [address] [place] [address] 12 Lead EKG 11/09/24 0428 MR#: [id number] Acct: [id number] Name: DARYN GUILLERMO BLANE Rep #:[id number] : 1945 78 From: Nino Gonzalez MD Attending Dr: Dr. Edmundo Monge DO Status: ADM IN Ordering Dr: Kenyon Shin DO Date: 5 Location: U Sex: F C Admitted: 11/09/24 Test Reason : FLUID Blood Pressure : */* mmHG Vent. Rate : 97 BPM Atrial Rate : * BPM P-R Int : * ms QRS Dur : 104 ms QT Int : 324 ms P-R-T Axes : * -43 114 degrees QTcB Int : 411 ms Atrial fibrillation with premature ventricular or aberrantly conducted complexes Left axis deviation Inferior infarct , age undetermined Anterolateral infarct , age undetermined Abnormal ECG Confirmed by NINO GONZALEZ MD ([id number]), editorial cartoonist CLIF CANALES ([id number]) on 11/11/2024 7:47:01 AM Referred By: Confirmed By: NINO GONZALEZ MD 11/11/24 0747 Date _ Nino Gonzalez MD CC: Dr. Edmundo Monge DO; Dr. Delgado Amaro DO; Dr. Kenyon Shin DO ~ Signed [facility] Other Phone: Ketones Test strip Ql (U)Ord ered By: Jeri Rowland on 11-11-2024 Ketones Ql (U) Negative Negative [facility] Kidney and Bladderon 025 Kidney and Bladder Normal [facility] Microscopic analysis of urin e for red blood cells (RBC)Ordered By: Jeri Rowland on 11-11-2024 Microscopic analysis of urine for red blood cells (RBC) 0 SEEN /hpf 0-5 [facility] Mucus LM Ql (Urine sed)Order ed By: Jeri Rowland on 11-11-2024 Mucus Ql (Urine sed) 0 SEEN /hpf [facility] Nitrite Test strip Ql (U)Ord ered By: Jeri Rowland on 11-11-2024 Nitrite Ql (U) Negative Negative [facility] Protein Test strip Ql (U)Ord ered By: Jeri Rowland on 11-11-2024 Protein Ql (U) 100 mg/dl High Negative [facility] Protein+Creatinine Ratio,Uri neon 11-11-2024 PROT:CRE RATIO 517 mg/g CRE High 0-200 [facility] Comment on above: Performed By: #### L 400.0001, L501.0900 ####[facility] [address] [place], [address] Protein (U) [Mass/Vol] 89.5 mg/dL High 0.0-12.0 [facility] Comment on above: Performed By: #### L 400.0001, L501.0900 ####[facility] [address] [place], [address] UR CREAT 173.00 mg/dL Normal 28.00-217.00 [facility] Comment on above: Performed By: #### L 400.0001, L501.0900 ####[facility] [address] [place], [address] Squamous epithelial cells de tection in urine sediment by light microscopyOrdered By: Jeri Rowland on 11-11-2024 Epithelial cells.squamous LM Ql (Urine sed) 0 SEEN /hpf 5-10 [facility] Urinalysis, Completeon 11-11 BACTERIA 3+ /hpf Normal None Seen [facility] Comment on above: Order Comment: CHAD TER SPECIMEN Performed By: #### L 400.0001, L501.0900 ####[facility] [address] [place], [address] WBC 25-50 SEEN Normal 0-5 [facility] Comment on above: Order Comment: CHAD TER SPECIMEN Performed By: #### L 400.0001, L501.0900 ####[facility] [address] [place], [address] EPI,SQUAMOUS 0 SEEN Normal 5-10 [facility] Comment on above: Order Comment: CHAD TER SPECIMEN Performed By: #### L 400.0001, L501.0900 ####[facility] [address] [place], [address] Mucus Ql (Urine sed) 0 SEEN Normal [facility] Comment on above: Order Comment: CHAD TER SPECIMEN Performed By: #### L 400.0001, L501.0900 ####[facility] [address] [place], [address] RBC 0 SEEN Normal 0-5 [facility] Comment on above: Order Comment: CHAD TER SPECIMEN Performed By: #### L 400.0001, L501.0900 ####[facility] [address] [place], [address] Urine clarityOrdered By: Sampson Rowland on 11-11-2024 Clarity (U) Cloudy Clear [facility] Urine color determinationOrd ered By: Jeri Rowland on 11-11-2024 Color (U) Yellow Yellow [facility] Urine glucose detectionOrder ed By: Jeri Rowland on 11-11-2024 Glucose Ql (U) 50 mg/dl High Normal [facility] Urine leukocyte esterase det ection by dipstickOrdered By: Jeri Rowland on 11-11-2024 Leukocyte esterase Test strip Ql (U) 500 /ul High Negative [facility] Urine pHOrdered By: Jeri Rowland on 11-11-2024 pH (U) 5.0 [pH] 5.0 - 8.0 [facility] Urine protein measurement (m ass/volume)Ordered By: Jeri Rowland on 11-11-2024 Protein (U) [Mass/Vol] 89.5 mg/dL High 0.0-12.0 [facility] Urine protein/creatinine mas s ratioOrdered By: Jeri Rowland on 11-11-2024 Protein/Creatinine (U) [Mass ratio] 517 mg/g CRE High 0-200 [facility] Urine sediment bacteria coun t by microscopy (number/high power field)Ordered By: Jeri Rowland on 11-11-2024 Bacteria LM.HPF (Urine sed) [#/Area] 3 /[HPF] None Seen [facility] Urine specific gravity measu rementOrdered By: Jeri Rowland on 11-11-2024 Specific gravity (U) [Rel density] 1.025 1.002-1.030 [facility] Urine urobilinogen measureme ntOrdered By: Jeri Rowland on 11-11-2024 Urobilinogen Ql (U) 1 mg/dl High Normal [facility] White blood cell countOrdere d By: [place]e Janett on 11-11-2024 White blood cell count 25-50 SEEN /hpf 0-5 [facility] Basic Metabolic Profile (BMP )on 11-10-2024 BUN/CRE 23.8 RATIO High 10-20 [facility] Comment on above: Performed By: #### L 100.0100, L500.2500, L500.4100 ####[facility] [address] [place], [address] Calcium [Mass/Vol] 9.8 mg/dL Normal 7.6-11.0 [facility] Comment on above: Performed By: #### L 100.0100, L500.2500, L500.4100 ####[facility] [address] [place], [address] Chloride [Moles/Vol] 99 mmol/L Normal 98-108 [facility] Comment on above: Performed By: #### L 100.0100, L500.2500, L500.4100 ####[facility] [address] [place], [address] CO2 [Moles/Vol] 24.5 mmol/L Normal 21.0-32.0 [facility] Comment on above: Performed By: #### L 100.0100, L500.2500, L500.4100 ####[facility] [address] [place], [address] Creatinine [Mass/Vol] 1.57 mg/dL High 0.70-1.20 [facility] Comment on above: Performed By: #### L 100.0100, L500.2500, L500.4100 ####[facility] [address] [place], [address] ECRCL 36.95 ml/min Low 50-250 [facility] Comment on above: Performed By: #### L 100.0100, L500.2500, L500.4100 ####[facility] [address] [place], [address] GAP 17 High 5-15 [facility] Comment on above: Performed By: #### L 100.0100, L500.2500, L500.4100 ####[facility] [address] [place], [address] GFR/1.73 sq M.predicted among non-blacks MDRD (S/P/Bld) [Vol rate/Area] 34 mL/min/{1.73_m2} Low >60 [facility] Comment on above: Result Comment: mL/m in/1.73m2 CKD-EPI Creatinine Equation (2020) Performed By: #### L 100.0100, L500.2500, L500.4100 ####[facility] [address] [place], [address] Glucose [Mass/Vol] 116 mg/dL High 70-99 [facility] Comment on above: Performed By: #### L 100.0100, L500.2500, L500.4100 ####[facility] [address] [place], [address] Potassium [Moles/Vol] 3.6 mmol/L Normal 3.3-5.1 [facility] Comment on above: Performed By: #### L 100.0100, L500.2500, L500.4100 ####[facility] [address] [place], [address] Sodium [Moles/Vol] 141 mmol/L Normal 133-145 [facility] Comment on above: Performed By: #### L 100.0100, L500.2500, L500.4100 ####[facility] [address] [place], [address] Urea nitrogen [Mass/Vol] 37 mg/dL High 4-19 [facility] Comment on above: Performed By: #### L 100.0100, L500.2500, L500.4100 ####[facility] [address] [place], [address] Bedside Glucoseon 11-10-2024 FINGERSTICK GLU 88 mg/dL Normal 74-106 [facility] Comment on above: Result Comment: ASHU GEMENT OF PATIENT CARE PER NURSING PROTOCOL Performed By: #### L 501.080 ####[facility] [address] [place], [address] FINGERSTICK GLU 114 mg/dL High 74-106 [facility] Comment on above: Result Comment: ASHU GEMENT OF PATIENT CARE PER NURSING PROTOCOL Performed By: #### L 501.080 ####[facility] [address] [place], [address] FINGERSTICK GLU 181 mg/dL High 74-106 [facility] Comment on above: Result Comment: ASHU GEMENT OF PATIENT CARE PER NURSING PROTOCOL Performed By: #### L 501.080 ####[facility] [address] [place], [address] FINGERSTICK GLU 116 mg/dL High 74-106 [facility] Comment on above: Result Comment: ASHU KELLY OF PATIENT CARE PER NURSING PROTOCOL Performed By: #### L 501.080 ####[facility] [address] [place], [address] CBC W/Diff, Automatedon 08-0 4-2024 Absolute Lymph 2.88 X10 3/uL Normal 0.83-4.51 [facility] Comment on above: Performed By: #### L 100.0100, L500.2500, L500.4100 ####[facility] [address] [place], [address] Absolute Neut 6.9 X10 3/uL Normal 2.0-7.7 [facility] Comment on above: Performed By: #### L 100.0100, L500.2500, L500.4100 ####[facility] [address] [place], [address] Basophils/100 WBC (Bld) 0.9 % Normal 0-1 [facility] Comment on above: Performed By: #### L 100.0100, L500.2500, L500.4100 ####[facility] [address] [place], [address] Eosinophils/100 WBC (Bld) 0.8 % Normal 0-5 [facility] Comment on above: Performed By: #### L 100.0100, L500.2500, L500.4100 ####[facility] [address] [place], [address] Erythrocyte distribution width (RBC) [Ratio] 16.8 % High 11.6-14.6 [facility] Comment on above: Performed By: #### L 100.0100, L500.2500, L500.4100 ####[facility] [address] [place], [address] Hematocrit (Bld) [Volume fraction] 36.0 % Low 37-47 [facility] Comment on above: Performed By: #### L 100.0100, L500.2500, L500.4100 ####[facility] [address] [place], [address] Hemoglobin (Bld) [Mass/Vol] 10.9 g/dL Low 12.0-15.0 [facility] Comment on above: Performed By: #### L 100.0100, L500.2500, L500.4100 ####[facility] [address] [place], [address] IG% 0.500 Normal 0.0-0.9 [facility] Comment on above: Result Comment: IG% - Immature Granulocytes (promyelocytes, myelocytes andmetamyelocytes) > 1% indicates that a LEFT SHIFT is Present. Performed By: #### L 100.0100, L500.2500, L500.4100 ####[facility] [address] [place], [address] Lymphocytes/100 WBC (Bld) 27.0 % Normal 19-41 [facility] Comment on above: Performed By: #### L 100.0100, L500.2500, L500.4100 ####[facility] [address] [place], [address] MCH (RBC) [Entitic mass] 26.5 pg Low 27.0-32.0 [facility] Comment on above: Performed By: #### L 100.0100, L500.2500, L500.4100 ####[facility] [address] [place], [address] MCHC (RBC) [Mass/Vol] 30.3 g/dL Low 32-36 [facility] Comment on above: Performed By: #### L 100.0100, L500.2500, L500.4100 ####[facility] [address] [place], [address] MCV (RBC) [Entitic vol] 87.4 fL Normal 81-99 [facility] Comment on above: Performed By: #### L 100.0100, L500.2500, L500.4100 ####[facility] [address] [place], [address] Monocytes/100 WBC (Bld) 6.3 % Normal 0-10 [facility] Comment on above: Performed By: #### L 100.0100, L500.2500, L500.4100 ####[facility] [address] [place], [address] Neutrophils/100 WBC (Bld) 64.5 % Normal 47-70 [facility] Comment on above: Performed By: #### L 100.0100, L500.2500, L500.4100 ####[facility] [address] [place], [address] Nucleated RBC (Bld) [#/Vol] 0 10*3/uL Normal 0-5 [facility] Comment on above: Performed By: #### L 100.0100, L500.2500, L500.4100 ####[facility] [address] [place], [address] Platelet mean volume (Bld) [Entitic vol] 9.8 fL Normal 6.2-12.0 [facility] Comment on above: Performed By: #### L 100.0100, L500.2500, L500.4100 ####[facility] [address] [place], [address] Platelets (Bld) [#/Vol] 257 10*3/uL Normal 150-450 [facility] Comment on above: Performed By: #### L 100.0100, L500.2500, L500.4100 ####[facility] [address] [place], [address] RBC (Bld) [#/Vol] 4.12 10*6/uL Low 4.2-5.4 [facility] Comment on above: Performed By: #### L 100.0100, L500.2500, L500.4100 ####[facility] [address] [place], [address] RDW SD 53.1 fl High 35.1-43.9 [facility] Comment on above: Performed By: #### L 100.0100, L500.2500, L500.4100 ####[facility] [address] [place], [address] WBC (Bld) [#/Vol] 10.7 10*3/uL Normal 4.4-11.0 [facility] Comment on above: Performed By: #### L 100.0100, L500.2500, L500.4100 ####[facility] [address] [place], [address] Calculated very low density lipoprotein (VLDL) cholesterol measurementOrdered By: Emily Cummings on 11-10-2024 Calculated very low density lipoprotein (VLDL) cholesterol measurement 18 mg/dL 5-40 [facility] LDL calc ser/plasOrdered By: Emily Cummings on 11-10-2024 Cholesterol in LDL [Mass/Vol] 80 mg/dL [facility] Comment on above: Jxmrbbisid=126-894 m g/dL & Higher Egnu=232 mg/dL or greaterFriedwald Equation for LDL-C Lipid Profileon 11-10-2024 CHOL:HDL 2.69 Normal [facility] Comment on above: Performed By: #### L 100.0100, L500.2500, L500.4100 ####[facility] [address] [place], [address] Cholesterol [Mass/Vol] 156 mg/dL Normal <=200 [facility] Comment on above: Result Comment: Chol esterol level, Desirable <200 mg/dLBorderline high cholesterol 200-239 mg/dLHigh cholesterol >=240 mg/dLRecommendations of the NCEP Adult Treatment Panel for thefollowing risk-cutoff thresholds for the [place] Americanpopulation. Performed By: #### L 100.0100, L500.2500, L500.4100 ####[facility] [address] [place], [address] Cholesterol in HDL [Mass/Vol] 58 mg/dL Normal [facility] Comment on above: Result Comment: Cyndi onal Cholesterol Education Program (NCEP) guidelines:<40 mg/dL: Low HDL-cholesterol (major risk factor for CHD)>= 60 mg/dL: High HDL-cholesterol (negative risk factor forCHD)HDL-cholesterol is affected by a number of factors, e.g.smoking, exercise, hormones, sex and age. Performed By: #### L 100.0100, L500.2500, L500.4100 ####[facility] [address] [place], [address] Cholesterol in LDL [Mass/Vol] 80 mg/dL Normal [facility] Comment on above: Result Comment: Bord rhwvqs=071-167 mg/dL Higher Zzia=435 mg/dL or greaterFriedwald Equation for LDL-C Performed By: #### L 100.0100, L500.2500, L500.4100 ####[facility] [address] [place], [address] Cholesterol in VLDL [Mass/Vol] 18 mg/dL Normal 5-40 [facility] Comment on above: Performed By: #### L 100.0100, L500.2500, L500.4100 ####[facility] [address] [place], [address] Triglyceride [Mass/Vol] 90 mg/dL Normal [facility] Comment on above: Result Comment: The drugs N-Acetylcysteine and Metamizole may falselydepress this assay.Normal range: <150 mg/dLBorderline High: 150-199 mg/dLHigh: 200-499 mg/dLVery High: >500 mg/dL Performed By: #### L 100.0100, L500.2500, L500.4100 ####[facility] [address] [place], [place], [address] Magnesiumon 11-10-2024 Magnesium [Mass/Vol] 2.1 mg/dL Normal 1.5-2.2 [facility] Comment on above: Order Comment: Comme nts: Add onto previous labs if possible Performed By: #### L 501.520 ####[facility] [address], [address] Magnesium measurement (mass/ volume)Ordered By: Emily Cummings on 11-10-2024 Magnesium (Unsp spec) [Mass/Vol] 2.1 mg/dL 1.5-2.2 [facility] Screening total cholesterol/ high density lipoprotein (HDL) cholesterol ratioOrdered By: Emily Cummings on 11-10-2024 Cholesterol.total/Chol esterol in HDL [Mass ratio] 2.69 {ratio} [facility] Serum or plasma cholesterol in HDL measurement (mass/volume)Ordered By: Emily Cummings on 11-10-2024 Cholesterol in HDL [Mass/Vol] 58 mg/dL >40 [facility] Comment on above: National Cholesterol Education Program (NCEP) guidelines:<40 mg/dL: Low HDL-cholesterol (major risk factor for CHD)>= 60 mg/dL: High HDL-cholesterol (negative risk factor for CHD)HDL-cholesterol is affected by a number of factors, e.g. smoking, exercise, hormones, sex and age. Serum or plasma cholesterol measurement (mass/volume)Ordered By: Emily Cummings on 11-10-2024 Cholesterol [Mass/Vol] 156 mg/dL <201 [facility] Comment on above: Cholesterol level, D esirable <200 mg/dLBorderline high cholesterol 200-239 mg/dLHigh cholesterol >=240 mg/dLRecommendations of the NCEP Adult Treatment Panel for the following risk-cutoff thresholds for the [place] population. Triglycerides measurementOrd ered By: Emily Cummings on 08-04-2025 Triglyceride [Mass/Vol] 90 mg/dL <199 [facility] Comment on above: The drugs N-Acetylcy steine and Metamizole may falsely depress this assay. Normal range: <150 mg/dLBorderline High: 150-199 mg/dLHigh: 200-499 mg/dLVery High: >500 mg/dL 12 Lead EKGon 11-09-2024 12 Lead EKG Normal [facility] Absolute lymphocyte countOrd ered By: Kenyon Shin on 11-09-2024 Lymphocytes Auto (Unsp spec) [#/Vol] 2.88 10*3/uL 0.83-4.51 [facility] Absolute neutrophil countOrd ered By: Kenyon Shin on 11-09-2024 Neutrophils (Bld) [#/Vol] 5.1 10*3/uL 2.0-7.7 [facility] Anion gap in Serum or Plasma Ordered By: Kenyon Shin on 11-09-2024 Anion gap [Moles/Vol] 15 mmol/L 5-15 [facility] Automated lymphocyte count a s percentage of total leukocytesOrdered By: Kenyon Shin on 11-09-2024 Lymphocytes/100 WBC Auto (Unsp spec) 32.8 % 19-41 [facility] BUN/creatinine ratioOrdered By: Kenyon Shin on 11-09-2024 Urea nitrogen/Creatinine [Mass ratio] 22.7 mg/mg High 10-20 [facility] Basic Metabolic Profile (BMP )on 11-09-2024 BUN/CRE 22.7 RATIO High 1020 [facility] Comment on above: Performed By: #### L 100.0100, L500.2500, L503.7505 ####[facility] [address] [place], [address] Calcium [Mass/Vol] 9.1 mg/dL Normal 7.6-11.0 [facility] Comment on above: Performed By: #### L 100.0100, L500.2500, L503.7505 ####[facility] [address] [place], [address] Chloride [Moles/Vol] 99 mmol/L Normal 98-108 [facility] Comment on above: Performed By: #### L 100.0100, L500.2500, L503.7505 ####[facility] [address] [place], [address] CO2 [Moles/Vol] 24.8 mmol/L Normal 21.0-32.0 [facility] Comment on above: Performed By: #### L 100.0100, L500.2500, L503.7505 ####[facility] [address] [place], [address] Creatinine [Mass/Vol] 1.58 mg/dL High 0.70-1.20 [facility] Comment on above: Performed By: #### L 100.0100, L500.2500, L503.7505 ####[facility] [address] [place], [address] ECRCL 38.00 ml/min Low 50-250 [facility] Comment on above: Performed By: #### L 100.0100, L500.2500, L503.7505 ####[facility] [address] [place], [address] GAP 15 Normal 5-15 [facility] Comment on above: Performed By: #### L 100.0100, L500.2500, L503.7505 ####[facility] [address] [place], [address] GFR/1.73 sq M.predicted among non-blacks MDRD (S/P/Bld) [Vol rate/Area] 34 mL/min/{1.73_m2} Low >60 [facility] Comment on above: Result Comment: mL/m in/1.73m2 CKD-EPI Creatinine Equation (2020) Performed By: #### L 100.0100, L500.2500, L503.7505 ####[facility] [address] [place], [address] Glucose [Mass/Vol] 133 mg/dL High 70-99 [facility] Comment on above: Performed By: #### L 100.0100, L500.2500, L503.7505 ####[facility] [address] [place], [address] Potassium [Moles/Vol] 4.5 mmol/L Normal 3.3-5.1 [facility] Comment on above: Result Comment: Hemo lysis present, Results??could be affected.?? Performed By: #### L 100.0100, L500.2500, L503.7505 ####[facility] [address] [place], [address] Sodium [Moles/Vol] 138 mmol/L Normal 133-145 [facility] Comment on above: Performed By: #### L 100.0100, L500.2500, L503.7505 ####[facility] [address] [place], [address] Urea nitrogen [Mass/Vol] 36 mg/dL High 4-19 [facility] Comment on above: Performed By: #### L 100.0100, L500.2500, L503.7505 ####[facility] [address] [place], [address] Basophil percentageOrdered B y: Kenyon Le on 11-09-2024 Basophils/100 WBC (Bld) 0.8 % 0-1 [facility] Bedside Glucoseon 11-09-2024 FINGERSTICK GLU 126 mg/dL High 74-106 [facility] Comment on above: Result Comment: ASHU GEMENT OF PATIENT CARE PER NURSING PROTOCOL Performed By: #### L 501.080 ####[facility] [address] [place], [address] FINGERSTICK GLU 128 mg/dL High 74-106 [facility] Comment on above: Result Comment: ASHU GEMENT OF PATIENT CARE PER NURSING PROTOCOL Performed By: #### L 501.080 ####[facility] [address] [place], [address] FINGERSTICK GLU 152 mg/dL High 74-106 [facility] Comment on above: Result Comment: ASHU KELLY OF PATIENT CARE PER NURSING PROTOCOL Performed By: #### L 501.080 ####[facility] [address] [place], [address] CBC W/Diff, Automatedon 08-0 -2024 Absolute Lymph 2.88 X10 3/uL Normal 0.83-4.51 [facility] Comment on above: Performed By: #### L 100.0100, L500.2500, L503.7505 ####[facility] [address] [place], [address] Absolute Neut 5.1 X10 3/uL Normal 2.0-7.7 [facility] Comment on above: Performed By: #### L 100.0100, L500.2500, L503.7505 ####[facility] [address] [place], [address] Basophils/100 WBC (Bld) 0.8 % Normal 0-1 [facility] Comment on above: Performed By: #### L 100.0100, L500.2500, L503.7505 ####[facility] [address] [place], [address] Eosinophils/100 WBC (Bld) 1.6 % Normal 0-5 [facility] Comment on above: Performed By: #### L 100.0100, L500.2500, L503.7505 ####[facility] [address] [place], [address] Erythrocyte distribution width (RBC) [Ratio] 16.7 % High 11.6-14.6 [facility] Comment on above: Performed By: #### L 100.0100, L500.2500, L503.7505 ####[facility] [address] [place], [address] Hematocrit (Bld) [Volume fraction] 34.2 % Low 37-47 [facility] Comment on above: Performed By: #### L 100.0100, L500.2500, L503.7505 ####[facility] [address] [place], [address] Hemoglobin (Bld) [Mass/Vol] 10.5 g/dL Low 12.0-15.0 [facility] Comment on above: Performed By: #### L 100.0100, L500.2500, L503.7505 ####[facility] [address] [place], [address] IG% 0.500 Normal 0.0-0.9 [facility] Comment on above: Result Comment: IG% - Immature Granulocytes (promyelocytes, myelocytes andmetamyelocytes) > 1% indicates that a LEFT SHIFT is Present. Performed By: #### L 100.0100, L500.2500, L503.7505 ####[facility] [address] [place], [address] Lymphocytes/100 WBC (Bld) 32.8 % Normal 19-41 [facility] Comment on above: Performed By: #### L 100.0100, L500.2500, L503.7505 ####[facility] [address] [place], [address] MCH (RBC) [Entitic mass] 26.7 pg Low 27.0-32.0 [facility] Comment on above: Performed By: #### L 100.0100, L500.2500, L503.7505 ####[facility] [address] [place], [address] MCHC (RBC) [Mass/Vol] 30.7 g/dL Low 32-36 [facility] Comment on above: Performed By: #### L 100.0100, L500.2500, L503.7505 ####[facility] [address] [place], [address] MCV (RBC) [Entitic vol] 87.0 fL Normal 81-99 [facility] Comment on above: Performed By: #### L 100.0100, L500.2500, L503.7505 ####[facility] [address] [place], [address] Monocytes/100 WBC (Bld) 6.5 % Normal 0-10 [facility] Comment on above: Performed By: #### L 100.0100, L500.2500, L503.7505 ####[facility] [address] [place], [address] Neutrophils/100 WBC (Bld) 57.8 % Normal 47-70 [facility] Comment on above: Performed By: #### L 100.0100, L500.2500, L503.7505 ####[facility] [address] [place], [address] Nucleated RBC (Bld) [#/Vol] 0 10*3/uL Normal 0-5 [facility] Comment on above: Performed By: #### L 100.0100, L500.2500, L503.7505 ####[facility] [address] [place], [address] Platelet mean volume (Bld) [Entitic vol] 10.5 fL Normal 6.2-12.0 [facility] Comment on above: Performed By: #### L 100.0100, L500.2500, L503.7505 ####[facility] [address] [place], [address] Platelets (Bld) [#/Vol] 292 10*3/uL Normal 150-450 [facility] Comment on above: Performed By: #### L 100.0100, L500.2500, L503.7505 ####[facility] [address] [place], [address] RBC (Bld) [#/Vol] 3.93 10*6/uL Low 4.2-5.4 [facility] Comment on above: Performed By: #### L 100.0100, L500.2500, L503.7505 ####[facility] [address] [place], [address] RDW SD 53.2 fl High 35.1-43.9 [facility] Comment on above: Performed By: #### L 100.0100, L500.2500, L503.7505 ####[facility] [address] [place], [address] WBC (Bld) [#/Vol] 8.8 10*3/uL Normal 4.4-11.0 [facility] Comment on above: Performed By: #### L 100.0100, L500.2500, L503.7505 ####[facility] [address] [place], [address] Carbon dioxide, total [Moles /volume] in Central venous bloodOrdered By: Kenyon Shin on 11-09-2024 CO2 [Moles/Vol] 24.8 mmol/L 21.0-32.0 [facility] Chest 1 View (Portable)on Chest 1 View (Portable) Normal [facility] Chloride assayOrdered By: Sagar Shin on 11-09-2024 Chloride [Moles/Vol] 99 mmol/L 98-108 [facility] Emergency Department Summary on 11-09-2024 Emergency Department Summary Normal [facility] Eosinophil percentageOrdered By: Kenyon Shin on 11-09-2024 Eosinophils/100 WBC (Bld) 1.6 % 0-5 [facility] Erythrocyte distribution wid th ratioOrdered By: Kenyon Shin on 11-09-2024 Erythrocyte distribution width (RBC) [Ratio] 16.7 % High 11.6-14.6 [facility] Erythrocyte distribution wid th standard deviationOrdered By: Kenyon Shin on 11-09-2024 Erythrocyte distribution width (RBC) [Ratio] 53.2 fl High 35.1-43.9 [facility] Glomerular filtration rate ( GFR) estimation/1.73 sq m using serum, plasma, or whole bOrdered By: Kenyon Shin on 11-09-2024 GFR/1.73 sq M.predicted among non-blacks MDRD (S/P/Bld) [Vol rate/Area] 34 mL/min/{1.73_m2} Low >60 [facility] Comment on above: mL/min/1.73m2 CKD-EP I Creatinine Equation (2020) H AND P Exam - [facility] 11-09-2024 H&P Exam - Hospitalist Normal [facility] Hematocrit Auto (Bld) [Volum e fraction]Ordered By: Kenyon Shin on 11-09-2024 Hematocrit (Bld) [Volume fraction] 34.2 % Low 37-47 [facility] Hemoglobin measurementOrdere d By: Kenyon Shin on 11-09-2024 Hemoglobin (Bld) [Mass/Vol] 10.5 g/dL Low 12.0-15.0 [facility] [facility] Immature granulocytes/100 WB C Auto (Bld)Ordered By: Kenyon Shin on 11-09-2024 Immature granulocytes/100 WBC (Bld) 0.500 % 0.0-0.9 [facility] Comment on above: IG% - Immature Granu locytes (promyelocytes, myelocytes and metamyelocytes) > 1% indicates that a LEFT SHIFT is Present. MCV (mean corpuscular volume ) determinationOrdered By: Kenyon Shin on 11-09-2024 MCV (RBC) [Entitic vol] 87.0 fL 81-99 [facility] Mean corpuscular hemoglobin (MCH) determinationOrdered By: Kenyon Shin on 11-09-2024 MCH (RBC) [Entitic mass] 26.7 pg Low 27.0-32.0 [facility] Mean corpuscular hemoglobin concentration (MCHC) determinationOrdered By: Kenyon Shin on 11-09-2024 MCHC (RBC) [Mass/Vol] 30.7 g/dL Low 32-36 [facility] Mean platelet volume determi nationOrdered By: Kenyon Shin on 11-09-2024 Platelet mean volume (Bld) [Entitic vol] 10.5 fL 6.2-12.0 [facility] Monocyte percentageOrdered B y: Kenyon Shin on 11-09-2024 Monocytes/100 WBC (Bld) 6.5 % 0-10 [facility] Natriuretic peptide.B prohor diane N-Terminal [Mass/volume] in Serum or PlasmaOrdered By: Kenyon Shin on 11-09-2024 Natriuretic peptide.B prohormone N-Terminal [Mass/Vol] 72482 pg/mL High <1800 [facility] Comment on above: Heart Failure Unlike ly: < 300 pg/mLHeart Failure Likely< 50 Years: > 450 pg/mL50-75 Years: > 900 pg/mL>75 Years: > 1800 pg/mL Neutrophil percentageOrdered By: Kenyon Shin on 11-09-2024 Neutrophils/100 WBC (Bld) 57.8 % 47-70 [facility] Nucleated red blood cell per centageOrdered By: Kenyon Shin on 11-09-2024 Nucleated RBC/100 WBC (Bld) [Ratio] 0 % 0-5 [facility] Platelet countOrdered By: Sagar Shin on 11-09-2024 Platelets (Bld) [#/Vol] 292 10*3/uL 150-450 [facility] Potassium measurement (mass/ volume)Ordered By: Kenyon Shin on 11-09-2024 Potassium (Unsp spec) [Mass/Vol] 4.5 mmol/L 3.3-5.1 [facility] Comment on above: Hemolysis present, R esults could be affected. Pro- Brain NATRIURETIC PEPTI Larry 11-09-2024 Natriuretic peptide B (Bld) [Mass/Vol] 39786 pg/mL High <=1800 [facility] Comment on above: Result Comment: Hear t Failure Unlikely: < 300 pg/mLHeart Failure Likely< 50 Years: > 450 pg/mL50-75 Years: > 900 pg/mL>75 Years: > 1800 pg/mL Performed By: #### L 100.0100, L500.2500, L503.7505 ####[facility] [address] [place], [place], [id number] RBC Auto (Bld) [#/Vol]Ordere d By: Kenyon Shin on 11-09-2024 RBC (Bld) [#/Vol] 3.93 10*6/uL Low 4.2-5.4 [facility] Serum creatinine measurement (mass/volume)Ordered By: Kenyon Shin on 11-09-2024 Creatinine [Mass/Vol] 1.58 mg/dL High 0.70-1.20 [facility] Serum glucose measurement (m ass/volume)Ordered By: Kenyon Shin on 11-09-2024 Glucose [Mass/Vol] 133 mg/dL High 70-99 [facility] Serum or plasma calcium kay urement (mass/volume)Ordered By: Kenyon Shin on 11-09-2024 Calcium [Mass/Vol] 9.1 mg/dL 7.6-11.0 [facility] Serum or plasma urea nitroge n measurement (mass/volume)Ordered By: Kenyon Shin on 11-09-2024 Urea nitrogen [Mass/Vol] 36 mg/dL High 4-19 [facility] Sodium levelOrdered By: Kenyon Shin on 11-09-2024 Sodium [Moles/Vol] 138 mmol/L 133-145 [facility] White blood cell (WBC) count Ordered By: Kenyon Shin on 11-09-2024 WBC (Bld) [#/Vol] 8.8 10*3/uL 4.4-11.0 [facility] Bedside Glucoseon 10-28-2024 FINGERSTICK GLU 114 mg/dL High 74-106 [facility] Comment on above: Result Comment: ASHU KELLY OF PATIENT CARE PER NURSING PROTOCOL Performed By: #### L 501.080 ####[facility] [address] [place], [place], [address] EGD Reporton 10-28-2024 EGD Report Normal [facility] deOrdered By: Jacinto Munoz on 10-28-2024 Glucose [Mass/Vol] 114 mg/dL High 74-106 [facility] Comment on above: MANAGEMENT OF PATIEN T CARE PER NURSING PROTOCOL Immunohistochemical Stainson 10-28-2024 Immunohistochemical Stains Normal [facility] Comment on above: Performed By: #### P IMHI ####[facility] [address] [place], [address] MR/POSTOP.ANEon 10-28-2024 MR/POSTOP.ANE Normal [facility] MR/ALMDVLLS6ey 10-28-2024 MR/POSTOPAN2 Normal [facility] MR/PAT.ANEon 10-21-2024 MR/PAT.ANE Normal [facility] Cardiology Visit Reporton Cardiology Visit Report Normal [facility] CNPNon 09-19-2024 CNPN Telephone (AGCARDPOB ) -------- DARYN GUILLERMO ([id number]) 1945 F Date Time Provider Department 09/19/24 LAURENT JURADO AGCKALEYPOB During your visit today, we recorded the following information about you: Laurent Jurado, SCRAP DROP CRANE OPERATOR.HARNESS INSPECTOR 09/19/2024 3:31 PM Signed TAVR clinic referral received from Dr. Milo Mendoza. Chart reviewed, scanned records and imaging appreciated. 78 yo female with PMHx that includes HFrEF, a fib (previously on xarelto), DM, renal disease, anemia, anxiety/depression, OM, OA, GIB, PUD, COPD. Resides at [facility] since 6 months ago. Wheelchair bound, does stand for brief transfers with assist. Notes she gave up will to live about 5 years ago due to frustrations with family situations, and just had gradual debilitation. 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 1+ AI EF 40-45% Laurent Jurado APRN.HARNESS INSPECTOR Allergies As of Date: 09/19/2024 (Not on File) Date Reviewed: Never Reviewed Problem List As Of Date: 09/19/2024 (None) Encounter Status:Closed by LAURENT JURADO on 09/19/24 [facility] CNPN Telephone (AGCARDPOB ) -------- DARYN GUILLERMO ([id number]) 1945 F Date Time Provider Department 09/19/24 LAURENT JURADO AGCARDPOB During your visit today, we recorded the following information about you: Laurent Jurado APRN.HARNESS INSPECTOR 09/19/2024 3:31 PM Signed TAVR clinic referral received from Dr. Milo Mendoza. Chart reviewed, scanned records and imaging appreciated. 78 yo female with PMHx that includes HFrEF, a fib (previously on xarelto), DM, renal disease, anemia, anxiety/depression, OM, OA, GIB, PUD, COPD. Resides at [facility] since 6 months ago. Wheelchair bound, does stand for brief transfers with assist. Notes she gave up will to live about 5 years ago due to frustrations with family situations, and just had gradual debilitation. 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 1+ AI EF 40-45% Laurent Jurado APRN.HARNESS INSPECTOR Gamaliel Hess MA 09/19/2024 4:07 PM Signed Spoke with nurse at [facility] [phone] They're unable to arrange transportation for 09/24/24 office visit and reschedule to 11/12/24 10:30am. I faxed appt reminder with our address on it to [phone]. Allergies As of Date: 09/19/2024 (Not on File) Date Reviewed: Never Reviewed Problem List As Of Date: 09/19/2024 (None) Encounter Status:Closed by LAURENT JURADO on 09/19/24 [facility] Andreina 09-17-2024 [place] Telephone (AGVASACC) -------- DARYN GUILLERMO ([id number]) 1945 F Date Time Provider Department 09/17/24 LAURENT JURADO During your visit today, we recorded the following information about you: Pearl Dutta 09/17/2024 3:50 PM Signed Referral received and scanned to chart. Fax request was sent to [facility] requesting images and reports. A message was also sent to Laurent Jurado CNP in regards to the referral. Non-rheumatic aortic valve stenosis (possible TAVR candidate). Allergies As of Date: 09/17/2024 (Not on File) Date Reviewed: Never Reviewed Reason for Visit: Appointment [186] Cmt: Appointment Problem List As Of Date: 09/17/2024 (None) Encounter Status:Closed by PEARL DUTTA on 09/17/24 [facility] CNPN Telephone (AGUberMediaACC) -------- DARYN GUILLERMO ([id number]) 1945 F Date Time Provider Department 09/17/24 LAURENT JURADO AGJERMAIN During your visit today, we recorded the following information about you: Pearl Dutta 09/17/2024 3:50 PM Signed Referral received and scanned to chart. Fax request was sent to [facility] requesting images and reports. A message was also sent to Laurent Jurado CNP in regards to the referral. Non-rheumatic aortic valve stenosis (possible TAVR candidate). Gamaliel Hess MA 11/06/2024 3:16 PM Signed Addended by: JOCELINE HESS on: 11/06/2024 03:16 PM Modules accepted: Orders [...] Encounter Status:Closed by PEARL DUTTA on 09/17/24 Normal [facility] Anion gap in Serum or Plasma Ordered By: Delgado Amaro on 09-16-2024 Anion gap [Moles/Vol] 12 mmol/L -15 [facility] BUN/creatinine ratioOrdered By: Delgado Amaro on 09-16-2024 Urea nitrogen/Creatinine [Mass ratio] 23.1 mg/mg High 01-26 [facility] Basic Metabolic Profile (BMP )on 09-16-2024 BUN/CRE 23.1 RATIO High 01-26 [facility] Comment on above: Order Comment: 503.2 Performed By: #### L 100.0500, L500.2500 ####[facility] [address] [place], [address] Calcium [Mass/Vol] 9.1 mg/dL Normal 7.6-11.0 [facility] Comment on above: Order Comment: 503.2 Performed By: #### L 100.0500, L500.2500 ####[facility] [address] [place], [address] Chloride [Moles/Vol] 99 mmol/L Normal 98-108 [facility] Comment on above: Order Comment: 503.2 Performed By: #### L 100.0500, L500.2500 ####[facility] [address] [place], [address] CO2 [Moles/Vol] 27.1 mmol/L Normal 21.0-32.0 [facility] Comment on above: Order Comment: 503.2 Performed By: #### L 100.0500, L500.2500 ####[facility] [address] [place], [address] Creatinine [Mass/Vol] 1.19 mg/dL Normal 0.70-1.20 [facility] Comment on above: Order Comment: 503.2 Performed By: #### L 100.0500, L500.2500 ####[facility] [address] [place], [address] GAP 12 Normal 5-15 [facility] Comment on above: Order Comment: 503.2 Performed By: #### L 100.0500, L500.2500 ####[facility] [address] [place], [address] GFR/1.73 sq M.predicted among non-blacks MDRD (S/P/Bld) [Vol rate/Area] 47 mL/min/{1.73_m2} Low >60 [facility] Comment on above: Order Comment: 503.2 Result Comment: mL/m in/1.73m2 CKD-EPI Creatinine Equation (2020) Performed By: #### L 100.0500, L500.2500 ####[facility] [address] [place], [address] Glucose [Mass/Vol] 98 mg/dL Normal 70-99 [facility] Comment on above: Order Comment: 503.2 Performed By: #### L 100.0500, L500.2500 ####[facility] [address] [place], [address] Potassium [Moles/Vol] 4.3 mmol/L Normal 3.3-5.1 [facility] Comment on above: Order Comment: 503.2 Performed By: #### L 100.0500, L500.2500 ####[facility] [address] [place], [address] Sodium [Moles/Vol] 138 mmol/L Normal 133-145 [facility] Comment on above: Order Comment: 503.2 Performed By: #### L 100.0500, L500.2500 ####[facility] [address] [place], [address] Urea nitrogen [Mass/Vol] 28 mg/dL High 4-19 [facility] Comment on above: Order Comment: 503.2 Performed By: #### L 100.0500, L500.2500 ####[facility] [address] [place], [address] CBC-Complete Blood Cnt No Di ffon 09-16-2024 Erythrocyte distribution width (RBC) [Ratio] 15.1 % High 11.6-14.6 [facility] Comment on above: Order Comment: 503.2 Performed By: #### L 100.0500, L500.2500 ####[facility] [address] [place], [address] Hematocrit (Bld) [Volume fraction] 30.9 % Low 37-47 [facility] Comment on above: Order Comment: 503.2 Performed By: #### L 100.0500, L500.2500 ####[facility] [address] [place], [address] Hemoglobin (Bld) [Mass/Vol] 9.4 g/dL Low 12.0-15.0 [facility] Comment on above: Order Comment: 503.2 Performed By: #### L 100.0500, L500.2500 ####[facility] [address] [place], [address] MCH (RBC) [Entitic mass] 26.4 pg Low 27.0-32.0 [facility] Comment on above: Order Comment: 503.2 Performed By: #### L 100.0500, L500.2500 ####[facility] [address] [place], [address] MCHC (RBC) [Mass/Vol] 30.4 g/dL Low 32-36 [facility] Comment on above: Order Comment: 503.2 Performed By: #### L 100.0500, L500.2500 ####[facility] [address] [place], [address] MCV (RBC) [Entitic vol] 86.8 fL Normal 81-99 [facility] Comment on above: Order Comment: 503.2 Performed By: #### L 100.0500, L500.2500 ####[facility] [address] [place], [address] Platelet mean volume (Bld) [Entitic vol] 9.7 fL Normal 6.2-12.0 [facility] Comment on above: Order Comment: 503.2 Performed By: #### L 100.0500, L500.2500 ####[facility] [address] [place], [address] Platelets (Bld) [#/Vol] 203 10*3/uL Normal 150-450 [facility] Comment on above: Order Comment: 503.2 Performed By: #### L 100.0500, L500.2500 ####[facility] [address] [place], [address] RBC (Bld) [#/Vol] 3.56 10*6/uL Low 4.2-5.4 [facility] Comment on above: Order Comment: 503.2 Performed By: #### L 100.0500, L500.2500 ####[facility] [address] [place], [address] RDW SD 48.3 fl High 35.1-43.9 [facility] Comment on above: Order Comment: 503.2 Performed By: #### L 100.0500, L500.2500 ####[facility] [address] [place], [address] WBC (Bld) [#/Vol] 7.6 10*3/uL Normal 4.4-11.0 [facility] Comment on above: Order Comment: 503.2 Performed By: #### L 100.0500, L500.2500 ####[facility] [address] [place], [address] Carbon dioxide, total [Moles /volume] in Central venous bloodOrdered By: Delgado Amaro on 09-16-2024 CO2 [Moles/Vol] 27.1 mmol/L 21.0-32.0 [facility] Chloride assayOrdered By: Kade Amaro on 09-16-2024 Chloride [Moles/Vol] 99 mmol/L 98-108 [facility] Erythrocyte distribution wid th ratioOrdered By: Delgado Amaro on 09-16-2024 Erythrocyte distribution width (RBC) [Ratio] 15.1 % High 11.6-14.6 [facility] Erythrocyte distribution wid th standard deviationOrdered By: Delgado Amaro on 09-16-2024 Erythrocyte distribution width (RBC) [Ratio] 48.3 fl High 35.1-43.9 [facility] Glomerular filtration rate ( GFR) estimation/1.73 sq m using serum, plasma, or whole bOrdered By: Delgado Amaro on 09-16-2024 GFR/1.73 sq M.predicted among non-blacks MDRD (S/P/Bld) [Vol rate/Area] 47 mL/min/{1.73_m2} Low >60 [facility] Comment on above: mL/min/1.73m2 CKD-EP I Creatinine Equation (2020) Hematocrit Auto (Bld) [Volum e fraction]Ordered By: Delgado Amaro on 09-16-2024 Hematocrit (Bld) [Volume fraction] 30.9 % Low 37-47 [facility] Hemoglobin measurementOrdere d By: Delgado Amaro on 09-16-2024 Hemoglobin (Bld) [Mass/Vol] 9.4 g/dL Low 12.0-15.0 [facility] MCV (mean corpuscular volume ) determinationOrdered By: Delgado Amaro on 09-16-2024 MCV (RBC) [Entitic vol] 86.8 fL 81-99 [facility] Mean corpuscular hemoglobin (MCH) determinationOrdered By: Delgado Amaro on 09-16-2024 MCH (RBC) [Entitic mass] 26.4 pg Low 27.0-32.0 [facility] Mean corpuscular hemoglobin concentration (MCHC) determinationOrdered By: Delgado Amaro on 09-16-2024 MCHC (RBC) [Mass/Vol] 30.4 g/dL Low 32-36 [facility] Mean platelet volume determi nationOrdered By: Delgado Amaro on 09-16-2024 Platelet mean volume (Bld) [Entitic vol] 9.7 fL 6.2-12.0 [facility] Platelet countOrdered By: Kade Amaro on 09-16-2024 Platelets (Bld) [#/Vol] 203 10*3/uL 150-450 [facility] Potassium measurement (mass/ volume)Ordered By: Delgado Amaro on 09-16-2024 Potassium (Unsp spec) [Mass/Vol] 4.3 mmol/L 3.3-5.1 [facility] RBC Auto (Bld) [#/Vol]Ordere d By: Delgado Amaro on 09-16-2024 RBC (Bld) [#/Vol] 3.56 10*6/uL Low 4.2-5.4 [facility] Serum creatinine measurement (mass/volume)Ordered By: Delgado Amaro on 09-16-2024 Creatinine [Mass/Vol] 1.19 mg/dL 0.70-1.20 [facility] Serum glucose measurement (m ass/volume)Ordered By: Delgado Amaro on 09-16-2024 Glucose [Mass/Vol] 98 mg/dL 70-99 [facility] Serum or plasma calcium kay urement (mass/volume)Ordered By: Delgado Amaro on 09-16-2024 Calcium [Mass/Vol] 9.1 mg/dL 7.6-11.0 [facility] Serum or plasma urea nitroge n measurement (mass/volume)Ordered By: Delgado Amaro on 09-16-2024 Urea nitrogen [Mass/Vol] 28 mg/dL High 4-19 [facility] Sodium levelOrdered By: Dimitry Amaro on 09-16-2024 Sodium [Moles/Vol] 138 mmol/L 133-145 [facility] White blood cell (WBC) count Ordered By: Delgado Amaro on 09-16-2024 WBC (Bld) [#/Vol] 7.6 10*3/uL 4.4-11.0 [facility] Anion gap in Serum or Plasma Ordered By: Delgado Amaro on 08-19-2024 Anion gap [Moles/Vol] 10 mmol/L 5- [facility] BUN/creatinine ratioOrdered By: Delgado Amaro on 08-19-2024 Urea nitrogen/Creatinine [Mass ratio] 19.0 mg/mg - [facility] Basic Metabolic Profile (BMP )on 08-19-2024 BUN/CRE 19.0 RATIO Normal - [facility] Comment on above: Order Comment: 503.2 Performed By: #### L 100.0500, L500.2500 ####[facility] [address] [place], [address] Calcium [Mass/Vol] 9.7 mg/dL Normal 7.6-11.0 [facility] Comment on above: Order Comment: 503.2 Performed By: #### L 100.0500, L500.2500 ####[facility] [address] [place], [address] Chloride [Moles/Vol] 100 mmol/L Normal 98-108 [facility] Comment on above: Order Comment: 503.2 Performed By: #### L 100.0500, L500.2500 ####[facility] [address] [place], [address] CO2 [Moles/Vol] 27.5 mmol/L Normal 21.0-32.0 [facility] Comment on above: Order Comment: 503.2 Performed By: #### L 100.0500, L500.2500 ####[facility] [address] [place], [address] Creatinine [Mass/Vol] 1.15 mg/dL Normal 0.70-1.20 [facility] Comment on above: Order Comment: 503.2 Performed By: #### L 100.0500, L500.2500 ####[facility] [address] [place], [address] GAP 10 Normal - [facility] Comment on above: Order Comment: 503.2 Performed By: #### L 100.0500, L500.2500 ####[facility] [address] [place], [address] GFR/1.73 sq M.predicted among non-blacks MDRD (S/P/Bld) [Vol rate/Area] 49 mL/min/{1.73_m2} Low >60 [facility] Comment on above: Order Comment: 503.2 Result Comment: mL/m in/1.73m2 CKD-EPI Creatinine Equation (2020) Performed By: #### L 100.0500, L500.2500 ####[facility] [address] [place], [address] Glucose [Mass/Vol] 101 mg/dL High 70-99 [facility] Comment on above: Order Comment: 503.2 Performed By: #### L 100.0500, L500.2500 ####[facility] [address] [place], [address] Potassium [Moles/Vol] 4.4 mmol/L Normal 3.3-5.1 [facility] Comment on above: Order Comment: 503.2 Result Comment: Hemo lysis present, Results??could be affected.?? Performed By: #### L 100.0500, L500.2500 ####[facility] [address] [place], [address] Sodium [Moles/Vol] 138 mmol/L Normal 133-145 [facility] Comment on above: Order Comment: 503.2 Performed By: #### L 100.0500, L500.2500 ####[facility] [address] [place], [address] Urea nitrogen [Mass/Vol] 22 mg/dL High 4-19 [facility] Comment on above: Order Comment: 503.2 Performed By: #### L 100.0500, L500.2500 ####[facility] [address] [place], [address] CBC-Complete Blood Cnt No Steve lott 08-19-2024 Erythrocyte distribution width (RBC) [Ratio] 15.9 % High 11.6-14.6 [facility] Comment on above: Order Comment: 503.2 Performed By: #### L 100.0500, L500.2500 ####[facility] [address] [place], [address] Hematocrit (Bld) [Volume fraction] 35.6 % Low 37-47 [facility] Comment on above: Order Comment: 503.2 Performed By: #### L 100.0500, L500.2500 ####[facility] [address] [place], [address] Hemoglobin (Bld) [Mass/Vol] 11.6 g/dL Low 12.0-15.0 [facility] Comment on above: Order Comment: 503.2 Performed By: #### L 100.0500, L500.2500 ####[facility] [address] [place], [address] MCH (RBC) [Entitic mass] 28.4 pg Normal 27.0-32.0 [facility] Comment on above: Order Comment: 503.2 Performed By: #### L 100.0500, L500.2500 ####[facility] [address] [place], [address] MCHC (RBC) [Mass/Vol] 32.6 g/dL Normal 32-36 [facility] Comment on above: Order Comment: 503.2 Performed By: #### L 100.0500, L500.2500 ####[facility] [address] [place], [address] MCV (RBC) [Entitic vol] 87.0 fL Normal 81-99 [facility] Comment on above: Order Comment: 503.2 Performed By: #### L 100.0500, L500.2500 ####[facility] [address] [place], [address] Platelet mean volume (Bld) [Entitic vol] 9.5 fL Normal 6.2-12.0 [facility] Comment on above: Order Comment: 503.2 Performed By: #### L 100.0500, L500.2500 ####[facility] [address] [place], [address] Platelets (Bld) [#/Vol] 180 10*3/uL Normal 150-450 [facility] Comment on above: Order Comment: 503.2 Performed By: #### L 100.0500, L500.2500 ####[facility] [address] [place], [address] RBC (Bld) [#/Vol] 4.09 10*6/uL Low 4.2-5.4 [facility] Comment on above: Order Comment: 503.2 Performed By: #### L 100.0500, L500.2500 ####[facility] [address] [place], [address] RDW SD 50.2 fl High 35.1-43.9 [facility] Comment on above: Order Comment: 503.2 Performed By: #### L 100.0500, L500.2500 ####[facility] [address] [place], [address] WBC (Bld) [#/Vol] 6.4 10*3/uL Normal 4.4-11.0 [facility] Comment on above: Order Comment: 503.2 Performed By: #### L 100.0500, L500.2500 ####[facility] [address] [place], [address] Carbon dioxide, total [Moles /volume] in Central venous bloodOrdered By: Delgado Amaro on 08-19-2024 CO2 [Moles/Vol] 27.5 mmol/L 21.0-32.0 [facility] Chloride assayOrdered By: Kade Amaro on 08-19-2024 Chloride [Moles/Vol] 100 mmol/L 98-108 [facility] Erythrocyte distribution wid th ratioOrdered By: Delgado Amaro on 08-19-2024 Erythrocyte distribution width (RBC) [Ratio] 15.9 % High 11.6-14.6 [facility] Erythrocyte distribution wid th standard deviationOrdered By: Delgado Amaro on 08-19-2024 Erythrocyte distribution width (RBC) [Ratio] 50.2 fl High 35.1-43.9 [facility] Glomerular filtration rate ( GFR) estimation/1.73 sq m using serum, plasma, or whole bOrdered By: Delgado Amaro on 08-19-2024 GFR/1.73 sq M.predicted among non-blacks MDRD (S/P/Bld) [Vol rate/Area] 49 mL/min/{1.73_m2} Low >60 [facility] Comment on above: mL/min/1.73m2 CKD-EP I Creatinine Equation (2020) Hematocrit Auto (Bld) [Volum e fraction]Ordered By: Delgado Amaro on 08-19-2024 Hematocrit (Bld) [Volume fraction] 35.6 % Low 37-47 [facility] Hemoglobin measurementOrdere d By: Delgado Amaro on 08-19-2024 Hemoglobin (Bld) [Mass/Vol] 11.6 g/dL Low 12.0-15.0 [facility] MCV (mean corpuscular volume ) determinationOrdered By: Delgdao Amaro on 08-19-2024 MCV (RBC) [Entitic vol] 87.0 fL 81-99 [facility] Mean corpuscular hemoglobin (MCH) determinationOrdered By: Delgado Amaro on 08-19-2024 MCH (RBC) [Entitic mass] 28.4 pg 27.0-32.0 [facility] Mean corpuscular hemoglobin concentration (MCHC) determinationOrdered By: Delgado Amaro on 08-19-2024 MCHC (RBC) [Mass/Vol] 32.6 g/dL 32-36 [facility] Mean platelet volume determi nationOrdered By: Delgado Amaro on 08-19-2024 Platelet mean volume (Bld) [Entitic vol] 9.5 fL 6.2-12.0 [facility] Platelet countOrdered By: Kade Amaro on 08-19-2024 Platelets (Bld) [#/Vol] 180 10*3/uL 150-450 [facility] Potassium measurement (mass/ volume)Ordered By: Delgado Amaro on 08-19-2024 Potassium (Unsp spec) [Mass/Vol] 4.4 mmol/L 3.3-5.1 [facility] Comment on above: Hemolysis present, R esults could be affected. RBC Auto (Bld) [#/Vol]Ordere d By: Delgado Amaro on 08-19-2024 RBC (Bld) [#/Vol] 4.09 10*6/uL Low 4.2-5.4 [facility] Serum creatinine measurement (mass/volume)Ordered By: Delgado Amaro on 08-19-2024 Creatinine [Mass/Vol] 1.15 mg/dL 0.70-1.20 [facility] Serum glucose measurement (m ass/volume)Ordered By: Delgado Amaro on 08-19-2024 Glucose [Mass/Vol] 101 mg/dL High 70-99 [facility] Serum or plasma calcium kay urement (mass/volume)Ordered By: Delgado Amaro on 08-19-2024 Calcium [Mass/Vol] 9.7 mg/dL 7.6-11.0 [facility] Serum or plasma urea nitroge n measurement (mass/volume)Ordered By: Delgado Amaro on 08-19-2024 Urea nitrogen [Mass/Vol] 22 mg/dL High 4-19 [facility] Sodium levelOrdered By: Dimitry Amaro on 08-19-2024 Sodium [Moles/Vol] 138 mmol/L 133-145 [facility] White blood cell (WBC) count Ordered By: Delgado Amaro on 08-19-2024 WBC (Bld) [#/Vol] 6.4 10*3/uL 4.4-11.0 [facility] Cardiovascular stress test r eportOrdered By: Henri Pedraza on 08-13-2024 Study report [facility] [address] [place] [address] MR#: [id number] Acct: [id number] Name: DARYN GUILLERMO Rep #: [id number] : 1945 78 From: Henri Pedraza MD Primary Care: April Muleln MD Status: REG CLI Referring Dr: Henri [...] of 34%. This note was generated with Rippldation software. It may contain incorrectwords, spelling, and punctuation that were not noted in checking the note beforesigning. 08/13/24 1045 Date _ Henri Pedraza MD CC: Dr. Henri Pedraza MD; April Mullen MD ~ Date Dictated: 08/13/24 1041 Date Transcribed: 08/13/24 104 Lpn Or Medical Assistant: ROGER Sterling [facility] Work Phone: Echo Completeon 08-13-2024 Echo Complete Normal [facility] Echocardiogram study reportO rdered By: Henri Pedraza on 08-13-2024 Study report [facility] [address] [place] [address] Echo Complete 08/13/24 1000 MR#: [id number] Acct: [id number] Name: DARYN GUILLERMO BLANE Rep #:[id number] : 1945 78 From: Henri Pedraza MD Attending Dr: Dr. Henri Pedraza MD Status: REG CLI Ordering Dr: Henri Pedraza MD Date: Location: [facility] Sex: F C Admitted: Reason For Study [...] Dictated: 08/13/24 1000 Date Transcribed: 08/13/24 1153 Lpn Or Medical Assistant: Signed [facility] Work Phone: Stress Reporton 08-13-2024 Stress Report Normal [facility] Gastroenterology Visit Repor ton 07-31-2024 Gastroenterology Visit Report Normal [facility] 12 Lead EKG performed by [facility] on 07-23-2024 12 Lead EKG performed by [facility] Normal [facility] Cardiology Visit Reporton Cardiology Visit Report Normal [facility] Anion gap in Serum or Plasma Ordered By: Delgado Amaro on 07-22-2024 Anion gap [Moles/Vol] 10 mmol/L 08-21 [facility] Automated blood erythrocyte countOrdered By: Delgado Amaro on 07-22-2024 RBC (Bld) [#/Vol] 4.28 10*6/uL Normal 4.2-5.4 [facility] Comment on above: Order Comment: 503.2 Performed By: #### L 100.0500, L500.2500 ####[facility] [address] [place], [address] Automated blood hematocrit ( percentage)Ordered By: Delgado Amaro on 07-22-2024 Hematocrit (Bld) [Volume fraction] 35.6 % Low 37-47 [facility] Comment on above: Order Comment: 503.2 Performed By: #### L 100.0500, L500.2500 ####[facility] [address] [place], [address] BUN/creatinine ratioOrdered By: Delgado Amaro on 07-22-2024 Urea nitrogen/Creatinine [Mass ratio] 16.8 mg/mg - [facility] Basic Metabolic Profile (BMP )on 07-22-2024 BUN/CRE 16.8 RATIO Normal - [facility] Comment on above: Order Comment: 503.2 Performed By: #### L 100.0500, L500.2500 ####[facility] [address] [place], [address] GAP 10 Normal - [facility] Comment on above: Order Comment: 503.2 Performed By: #### L 100.0500, L500.2500 ####[facility] [address] [place], [address] Potassium [Moles/Vol] 3.9 mmol/L Normal 3.3-5.1 [facility] Comment on above: Order Comment: 503.2 Performed By: #### L 100.0500, L500.2500 ####[facility] [address] [place], [address] CBC-Complete Blood Cnt No Di ffon 07-22-2024 RDW SD 55.6 fl High 35.1-43.9 [facility] Comment on above: Order Comment: 503.2 Performed By: #### L 100.0500, L500.2500 ####[facility] [address] [place], [address] Carbon dioxide, total [Moles /volume] in Central venous bloodOrdered By: Delgado Amaro on 07-22-2024 CO2 [Moles/Vol] 28.7 mmol/L Normal 21.0-32.0 [facility] Comment on above: Order Comment: 503.2 Performed By: #### L 100.0500, L500.2500 ####[facility] [address], [address] Chloride assayOrdered By: Kade Amaro on 07-22-2024 Chloride [Moles/Vol] 102 mmol/L Normal 98-108 [facility] Comment on above: Order Comment: 503.2 Performed By: #### L 100.0500, L500.2500 ####[facility] [address], [address] Erythrocyte distribution wid th ratioOrdered By: Delgado Amaro on 07-22-2024 Erythrocyte distribution width (RBC) [Ratio] 18.2 % High 11.6-14.6 [facility] Comment on above: Order Comment: 503.2 Performed By: #### L 100.0500, L500.2500 ####[facility] [address] [place], [address] Erythrocyte distribution wid th standard deviationOrdered By: Delgado Amaro on 07-22-2024 Erythrocyte distribution width (RBC) [Ratio] 55.6 fl High 35.1-43.9 [facility] Glomerular filtration rate ( GFR) estimation/1.73 sq m using serum, plasma, or whole bOrdered By: Delgado Amaro on 07-22-2024 GFR/1.73 sq M.predicted among non-blacks MDRD (S/P/Bld) [Vol rate/Area] 47 mL/min/{1.73_m2} Low >60 [facility] Comment on above: mL/min/1.73m2 CKD-EP I Creatinine Equation (2020) Order Comment: 503.2 Result Comment: mL/m in/1.73m2 CKD-EPI Creatinine Equation (2020) Performed By: #### L 100.0500, L500.2500 ####[facility] [address] [place], [address] Hemoglobin measurementOrdere d By: Delgado Amaro on 07-22-2024 Hemoglobin (Bld) [Mass/Vol] 11.4 g/dL Low 12.0-15.0 [facility] Comment on above: Order Comment: 503.2 Performed By: #### L 100.0500, L500.2500 ####[facility] [address] [place], [address] MCV (mean corpuscular volume ) determinationOrdered By: Delgado Amaro on 07-22-2024 MCV (RBC) [Entitic vol] 83.2 fL Normal 81-99 [facility] Comment on above: Order Comment: 503.2 Performed By: #### L 100.0500, L500.2500 ####[facility] [address] [place], [address] Mean corpuscular hemoglobin (MCH) determinationOrdered By: Delgado Amaro on 07-22-2024 MCH (RBC) [Entitic mass] 26.6 pg Low 27.0-32.0 [facility] Comment on above: Order Comment: 503.2 Performed By: #### L 100.0500, L500.2500 ####[facility] [address] [place], [address] Mean corpuscular hemoglobin concentration (MCHC) determinationOrdered By: Delgado Amaro on 07-22-2024 MCHC (RBC) [Mass/Vol] 32.0 g/dL Normal 32-36 [facility] Comment on above: Order Comment: 503.2 Performed By: #### L 100.0500, L500.2500 ####[facility] [address] [place], [address] Mean platelet volume determi nationOrdered By: Delgado Amaro on 07-22-2024 Platelet mean volume (Bld) [Entitic vol] 9.2 fL Normal 6.2-12.0 [facility] Comment on above: Order Comment: 503.2 Performed By: #### L 100.0500, L500.2500 ####[facility] [address] [place], [address] Platelet countOrdered By: Kade Amaro on 07-22-2024 Platelets (Bld) [#/Vol] 159 10*3/uL Normal 150-450 [facility] Comment on above: Order Comment: 503.2 Performed By: #### L 100.0500, L500.2500 ####[facility] [address] [place], [address] Potassium measurement (mass/ volume)Ordered By: Delgado Amaro on 07-22-2024 Potassium (Unsp spec) [Mass/Vol] 3.9 mmol/L 3.3-5.1 [facility] Serum creatinine measurement (mass/volume)Ordered By: Delgado Amaro on 07-22-2024 Creatinine [Mass/Vol] 1.19 mg/dL Normal 0.70-1.20 [facility] Comment on above: Order Comment: 503.2 Performed By: #### L 100.0500, L500.2500 ####[facility] [address] [place], [address] Serum glucose measurement (m ass/volume)Ordered By: Delgado Amaro on 07-22-2024 Glucose [Mass/Vol] 82 mg/dL Normal 70-99 [facility] Comment on above: Order Comment: 503.2 Performed By: #### L 100.0500, L500.2500 ####[facility] [address] [place], [address] Serum or plasma calcium kay urement (mass/volume)Ordered By: Delgado Amaro on 07-22-2024 Calcium [Mass/Vol] 9.2 mg/dL Normal 7.6-11.0 [facility] Comment on above: Order Comment: 503.2 Performed By: #### L 100.0500, L500.2500 ####[facility] [address] [place], [address] Serum or plasma urea nitroge n measurement (mass/volume)Ordered By: Delgado Amaro on 07-22-2024 Urea nitrogen [Mass/Vol] 20 mg/dL High 4-19 [facility] Comment on above: Order Comment: 503.2 Performed By: #### L 100.0500, L500.2500 ####[facility] [address] [place], [address] Sodium levelOrdered By: Dimitry Amaro on 07-22-2024 Sodium [Moles/Vol] 141 mmol/L Normal 133-145 [facility] Comment on above: Order Comment: 503.2 Performed By: #### L 100.0500, L500.2500 ####[facility] [address] [place], [address] White blood cell (WBC) count Ordered By: Delgado Amaro on 07-22-2024 WBC (Bld) [#/Vol] 6.9 10*3/uL Normal 4.4-11.0 [facility] Comment on above: Order Comment: 503.2 Performed By: #### L 100.0500, L500.2500 ####[facility] [address] [place], [address] Bedside Glucoseon 07-01-2024 FINGERSTICK GLU 62 mg/dL Low 74-106 [facility] Comment on above: Result Comment: ASHU KELLY OF PATIENT CARE PER NURSING PROTOCOL Performed By: #### L 501.080 ####[facility] [address] [place], [address] Colonoscopy Reporton Colonoscopy Report Normal [facility] EGD Reporton 07-01-2024 EGD Report Normal [facility]Ordered By: Jaicnto Munoz on 07-01-2024 Bedside Glucose (Misc Panel) 62 mg/dL Low 74-106 [facility] Comment on above: MANAGEMENT OF PATIEN T CARE PER NURSING PROTOCOL Glucose [Mass/Vol] 62 mg/dL Low 74-106 [facility] Comment on above: MANAGEMENT OF PATIEN T CARE PER NURSING PROTOCOL MR/POSTOP.ANEon 07-01-2024 MR/POSTOP.ANE Normal [facility] MR/JKSOEDNB6mt 07-01-2024 MR/POSTOPAN2 Normal [facility] Surgery Specimen Level Lon 07-01-2024 Surgery Specimen Level IV Normal [facility] Comment on above: Performed By: #### P SUIV ####[facility] [address], [address] MR/PAT.ANEon 06-30-2024 MR/PAT.ANE Normal [facility] Anion gap in Serum or Plasma Ordered By: Delgado Amaro on 06-24-2024 Anion gap [Moles/Vol] 11 mmol/L 5-15 [facility] Automated blood erythrocyte countOrdered By: Delgado Amaro on 06-24-2024 RBC (Bld) [#/Vol] 4.14 10*6/uL Low 4.2-5.4 [facility] Comment on above: Order Comment: 503.2 Performed By: #### L 100.0500, L500.2500, L100.4500 ####[facility] [address] [place], [address] Automated blood hematocrit ( percentage)Ordered By: Delgado Amaro on 06-24-2024 Hematocrit (Bld) [Volume fraction] 32.9 % Low 37-47 [facility] Comment on above: Order Comment: 503.2 Performed By: #### L 100.0500, L500.2500, L100.4500 ####[facility] [address] [place], [address] BUN/creatinine ratioOrdered By: Delgado Amaro on 06-24-2024 Urea nitrogen/Creatinine [Mass ratio] 18.1 mg/mg - [facility] Basic Metabolic Profile (BMP )on 06-24-2024 BUN/CRE 18.1 RATIO Normal 01-26 [facility] Comment on above: Order Comment: 503.2 Performed By: #### L 100.0500, L500.2500, L100.4500 ####[facility] [address] [place], [address] GAP 11 Normal 5-15 [facility] Comment on above: Order Comment: 503.2 Performed By: #### L 100.0500, L500.2500, L100.4500 ####[facility] [address] [place], [address] Blood manual differential co mment interpretation (narrative result)Ordered By: Delgado Amaro on 06-24-2024 Manual differential comment Jd (Bld) [Interp] COMMENT [facility] Comment on above: 1+ ANISO. CBC-Complete Blood Cnt No Di ffon 06-24-2024 RDW SD 57.4 fl High 35.1-43.9 [facility] Comment on above: Order Comment: 503.2 Performed By: #### L 100.0500, L500.2500, L100.4500 ####[facility] [address] [place], [address] Carbon dioxide, total [Moles /volume] in Central venous bloodOrdered By: Delgado Amaro on 06-24-2024 CO2 [Moles/Vol] 26.3 mmol/L Normal 21.0-32.0 [facility] Comment on above: Order Comment: 503.2 Performed By: #### L 100.0500, L500.2500, L100.4500 ####[facility] [address] [place], [address] Chloride assayOrdered By: Kade Amaro on 06-24-2024 Chloride [Moles/Vol] 103 mmol/L Normal 98-108 [facility] Comment on above: Order Comment: 503.2 Performed By: #### L 100.0500, L500.2500, L100.4500 ####[facility] [address] [place], [address] Differential Commenton 06-24 SMEAR COMMENT COMMENT Normal [facility] Comment on above: Order Comment: 503.2 Result Comment: 1+ A NISO. Performed By: #### L 100.0500, L500.2500, L100.4500 ####[facility] [address] [place], [place], [address] Erythrocyte distribution wid th ratioOrdered By: Delgado Amaro on 06-24-2024 Erythrocyte distribution width (RBC) [Ratio] 20.1 % High 11.6-14.6 [facility] Comment on above: Order Comment: 503.2 Performed By: #### L 100.0500, L500.2500, L100.4500 ####[facility] [address] [place], [place], [address] Erythrocyte distribution wid th standard deviationOrdered By: Delgado Amaro on 06-24-2024 Erythrocyte distribution width (RBC) [Entitic vol] 57.4 fL High 35.1-43.9 [facility] Erythrocyte distribution width (RBC) [Ratio] 57.4 fl High 35.1-43.9 [facility] GFR/1.73 sq M.predicted tanner g non-blacks MDRD (S/P/Bld) [Vol rate/Area]Ordered By: Delgado Amaro on 06-24-2024 Estimated GFR (MDRD) Non-Af Amer 49 Low >60 [facility] Comment on above: mL/min/1.73m2 CKD-EP I Creatinine Equation (2020) Glomerular filtration rate ( GFR) estimation/1.73 sq m using serum, plasma, or whole bOrdered By: Delgado Amaro on 06-24-2024 GFR/1.73 sq M.predicted among non-blacks MDRD (S/P/Bld) [Vol rate/Area] 49 mL/min/{1.73_m2} Low >60 [facility] Comment on above: mL/min/1.73m2 CKD-EP I Creatinine Equation (2020) Order Comment: 503.2 Result Comment: mL/m in/1.73m2 CKD-EPI Creatinine Equation (2020) Performed By: #### L 100.0500, L500.2500, L100.4500 ####[facility] [address] [place], [address] Hemoglobin measurementOrdere d By: Delgado Amaro on 06-24-2024 Hemoglobin (Bld) [Mass/Vol] 10.3 g/dL Low 12.0-15.0 [facility] Comment on above: Order Comment: 503.2 Performed By: #### L 100.0500, L500.2500, L100.4500 ####[facility] [address] [place], [address] MCV (mean corpuscular volume ) determinationOrdered By: Delgado Amaro on 06-24-2024 MCV (RBC) [Entitic vol] 79.5 fL Low 81-99 [facility] Comment on above: Order Comment: 503.2 Performed By: #### L 100.0500, L500.2500, L100.4500 ####[facility] [address] [place], [address] Manual differential comment Jd (Bld) [Interp]Ordered By: Delgado Amaro on 06-24-2024 Differential Comment COMMENT [facility] Comment on above: 1+ ANISO. Mean corpuscular hemoglobin (MCH) determinationOrdered By: Delgado mAaro on 06-24-2024 MCH (RBC) [Entitic mass] 24.9 pg Low 27.0-32.0 [facility] Comment on above: Order Comment: 503.2 Performed By: #### L 100.0500, L500.2500, L100.4500 ####[facility] [address] [place], [address] Mean corpuscular hemoglobin concentration (MCHC) determinationOrdered By: Delgado Amaro on 06-24-2024 MCHC (RBC) [Mass/Vol] 31.3 g/dL Low 32-36 [facility] Comment on above: Order Comment: 503.2 Performed By: #### L 100.0500, L500.2500, L100.4500 ####[facility] [address] [place], [address] Mean platelet volume determi nationOrdered By: Delgado Amaro on 06-24-2024 Platelet mean volume (Bld) [Entitic vol] 9.4 fL Normal 6.2-12.0 [facility] Comment on above: Order Comment: 503.2 Performed By: #### L 100.0500, L500.2500, L100.4500 ####[facility] [address] [place], [address] Platelet countOrdered By: Kade Amaro on 06-24-2024 Platelets (Bld) [#/Vol] 137 10*3/uL Low 150-450 [facility] Comment on above: Order Comment: 503.2 Performed By: #### L 100.0500, L500.2500, L100.4500 ####[facility] [address] [place], [address] Potassium measurement (mass/ volume)Ordered By: Delgado Amaro on 06-24-2024 Potassium [Moles/Vol] 3.8 mmol/L Normal 3.3-5.1 [facility] Comment on above: Order Comment: 503.2 Performed By: #### L 100.0500, L500.2500, L100.4500 ####[facility] [address] [place], [address] Potassium (Unsp spec) [Mass/Vol] 3.8 mmol/L 3.3-5.1 [facility] Serum creatinine measurement (mass/volume)Ordered By: Delgado Amaro on 06-24-2024 Creatinine [Mass/Vol] 1.16 mg/dL Normal 0.70-1.20 [facility] Comment on above: Order Comment: 503.2 Performed By: #### L 100.0500, L500.2500, L100.4500 ####[facility] [address] [place], [address] Serum glucose measurement (m ass/volume)Ordered By: Delgado Amaro on 06-24-2024 Glucose [Mass/Vol] 102 mg/dL High 70-99 [facility] Comment on above: Order Comment: 503.2 Performed By: #### L 100.0500, L500.2500, L100.4500 ####[facility] [address] [place], [address] Serum or plasma calcium kay urement (mass/volume)Ordered By: Delgado Amaro on 06-24-2024 Calcium [Mass/Vol] 8.9 mg/dL Normal 7.6-11.0 [facility] Comment on above: Order Comment: 503.2 Performed By: #### L 100.0500, L500.2500, L100.4500 ####[facility] [address] [place], [address] Serum or plasma urea nitroge n measurement (mass/volume)Ordered By: Delgado Amaro on 06-24-2024 Urea nitrogen [Mass/Vol] 21 mg/dL High 4-19 [facility] Comment on above: Order Comment: 503.2 Performed By: #### L 100.0500, L500.2500, L100.4500 ####[facility] [address] [place], [address] Sodium levelOrdered By: Dimitry Amaro on 06-24-2024 Sodium [Moles/Vol] 140 mmol/L Normal 133-145 [facility] Comment on above: Order Comment: 503.2 Performed By: #### L 100.0500, L500.2500, L100.4500 ####[facility] [address] [place], [address] White blood cell (WBC) count Ordered By: Delgado Amaro on 06-24-2024 WBC (Bld) [#/Vol] 6.3 10*3/uL Normal 4.4-11.0 [facility] Comment on above: Order Comment: 503.2 Performed By: #### L 100.0500, L500.2500, L100.4500 ####[facility] [address] [place], [address] BUN/creatinine ratioOrdered By: April Mullen on 06-04-2024 Urea nitrogen/Creatinine [Mass ratio] 24.1 mg/mg High 10-20 [facility] Basic Metabolic Profile (BMP )on 06-04-2024 Anion gap [Moles/Vol] 12 mmol/L Normal 5-15 [facility] Comment on above: Order Comment: 503-2 Performed By: #### L 500.2500 ####[facility] [address] [place], [address] BUN/CRE 24.1 RATIO High 10-20 [facility] Comment on above: Order Comment: 503-2 Performed By: #### L 500.2500 ####[facility] [address] [place], [address] Calcium [Mass/Vol] 9.1 mg/dL Normal 7.6-11.0 [facility] Comment on above: Order Comment: 503-2 Performed By: #### L 500.2500 ####[facility] [address] [place], [address] Chloride [Moles/Vol] 101 mmol/L Normal 96-108 [facility] Comment on above: Order Comment: 503-2 Performed By: #### L 500.2500 ####[facility] [address] [place], [address] CO2 [Moles/Vol] 27.3 mmol/L Normal 22.0-29.0 [facility] Comment on above: Order Comment: 503-2 Performed By: #### L 500.2500 ####[facility] [address] [place], [address] Creatinine [Mass/Vol] 1.2 mg/dL High 0.6-1.0 [facility] Comment on above: Order Comment: 503-2 Performed By: #### L 500.2500 ####[facility] [address] [place], [address] GFR/1.73 sq M.predicted among non-blacks MDRD (S/P/Bld) [Vol rate/Area] 49 mL/min/{1.73_m2} Low >60 [facility] Comment on above: Order Comment: 503-2 Result Comment: mL/m in/1.73m2 CKD-EPI Creatinine Equation (2020) Performed By: #### L 500.2500 ####[facility] [address] [place], [address] Glucose [Mass/Vol] 122 mg/dL High 70-99 [facility] Comment on above: Order Comment: 503-2 Performed By: #### L 500.2500 ####[facility] [address] [place], [address] Potassium [Moles/Vol] 4.1 mmol/L Normal 3.3-5.1 [facility] Comment on above: Order Comment: 503-2 Performed By: #### L 500.2500 ####[facility] [address] [place], [address] Sodium [Moles/Vol] 140 mmol/L Normal 133-145 [facility] Comment on above: Order Comment: 503-2 Performed By: #### L 500.2500 ####[facility] [address] [place], [address] Urea nitrogen [Mass/Vol] 28 mg/dL High 4-19 [facility] Comment on above: Order Comment: 503-2 Performed By: #### L 500.2500 ####[facility] [address] [place], [address] Carbon dioxide measurementOr dered By: April Mullen on 06-04-2024 CO2 [Moles/Vol] 27.3 mmol/L 22.0-29.0 [facility] Chloride measurementOrdered By: April Mullen on 06-04-2024 Chloride [Moles/Vol] 101 mmol/L 96-108 [facility] Creatinine [Moles/Vol]Ordere d By: April Mullen on 06-04-2024 Creatinine [Mass/Vol] 1.2 mg/dL High 0.6-1.0 [facility] GFR/1.73 sq M.predicted tanner g non-blacks MDRD (S/P/Bld) [Vol rate/Area]Ordered By: April Mullen on 06-04-2024 Estimated GFR (MDRD) Non-Af Amer 49 Low >60 [facility] Comment on above: mL/min/1.73m2 CKD-EP I Creatinine Equation (2020) Glomerular filtration rate ( GFR) estimation/1.73 sq m using serum, plasma, or whole bOrdered By: April Mullen on 06-04-2024 GFR/1.73 sq M.predicted among non-blacks MDRD (S/P/Bld) [Vol rate/Area] 49 mL/min/{1.73_m2} Low >60 [facility] Comment on above: mL/min/1.73m2 CKD-EP I Creatinine Equation (2020) Serum glucose measurement (m ass/volume)Ordered By: April Mullen on 06-04-2024 Glucose [Mass/Vol] 122 mg/dL High 70-99 [facility] Serum or plasma anion gap de termination (moles/volume)Ordered By: April Mullen on 06-04-2024 Anion gap [Moles/Vol] 12 mmol/L 5-15 [facility] Serum or plasma calcium kay urement (mass/volume)Ordered By: April Mullen on 06-04-2024 Calcium [Mass/Vol] 9.1 mg/dL 7.6-11.0 [facility] Serum or plasma creatinine m easurement (moles/volume)Ordered By: April Mullen on 06-04-2024 Creatinine [Moles/Vol] 1.2 mg/dL High 0.6-1.0 [facility] Serum or plasma potassium me asurementOrdered By: April Mullen on 06-04-2024 Potassium [Moles/Vol] 4.1 mmol/L 3.3-5.1 [facility] Serum or plasma sodium measu rement (moles/volume)Ordered By: April Mullen on 06-04-2024 Sodium [Moles/Vol] 140 mmol/L 133-145 [facility] Serum or plasma urea nitroge n measurement (mass/volume)Ordered By: April Mullen on 06-04-2024 Urea nitrogen [Mass/Vol] 28 mg/dL High 4-19 [facility] BUN/creatinine ratioOrdered By: Delgado Amaro on 06-03-2024 Urea nitrogen/Creatinine [Mass ratio] 25.0 mg/mg High - [facility] Basic Metabolic Profile (BMP )on 06-03-2024 BUN/CRE 25.0 RATIO [facility] Comment on above: Performed By: #### L 500.2500 ####[facility] [address] [place], [address] Chloride [Moles/Vol] 101 mmol/L Normal 96-108 [facility] Comment on above: Performed By: #### L 500.2500 ####[facility] [address] [place], [address] CO2 [Moles/Vol] 28.1 mmol/L Normal 22.0-29.0 [facility] Comment on above: Performed By: #### L 500.2500 ####[facility] [address] [place], [address] BUN Normal 7-18 [facility] Comment on above: Order Comment: 503.2 Result Comment: PUTT ING UNDER DIFFERENT REQ Performed By: #### L 100.0500, L500.2500 ####[facility] [address] [place], [address] BUN/CRE Normal 10-20 [facility] Comment on above: Order Comment: 503.2 Result Comment: PUTT ING UNDER DIFFERENT REQ Performed By: #### L 100.0500, L500.2500 ####[facility] [address] [place], [address] Calcium Normal 8.5-10.1 [facility] Comment on above: Order Comment: 503.2 Result Comment: PUTT ING UNDER DIFFERENT REQ Performed By: #### L 100.0500, L500.2500 ####[facility] [address] [place], [address] CL Normal 98-107 [facility] Comment on above: Order Comment: 503.2 Result Comment: PUTT ING UNDER DIFFERENT REQ Performed By: #### L 100.0500, L500.2500 ####[facility] [address] [place], [address] CO2 Normal 21.0-32.0 [facility] Comment on above: Order Comment: 503.2 Result Comment: PUTT ING UNDER DIFFERENT REQ Performed By: #### L 100.0500, L500.2500 ####[facility] [address] [place], [address] CREAT,SERUM Normal 0.55-1.02 [facility] Comment on above: Order Comment: 503.2 Result Comment: PUTT ING UNDER DIFFERENT REQ Performed By: #### L 100.0500, L500.2500 ####[facility] [address] [place], [address] eGFR Normal >60 [facility] Comment on above: Order Comment: 503.2 Result Comment: PUTT ING UNDER DIFFERENT REQ Performed By: #### L 100.0500, L500.2500 ####[facility] [address] [place], [address] EST GFR - AA Normal >60 [facility] Comment on above: Order Comment: 503.2 Result Comment: PUTT ING UNDER DIFFERENT REQ Performed By: #### L 100.0500, L500.2500 ####[facility] [address] [place], [address] GAP Normal 5-15 [facility] Comment on above: Order Comment: 503.2 Result Comment: PUTT ING UNDER DIFFERENT REQ Performed By: #### L 100.0500, L500.2500 ####[facility] [address] [place], [address] GLU Normal 74-106 [facility] Comment on above: Order Comment: 503.2 Result Comment: PUTT ING UNDER DIFFERENT REQ Performed By: #### L 100.0500, L500.2500 ####[facility] [address] [place], [address] Potassium Normal 3.5-5.1 [facility] Comment on above: Order Comment: 503.2 Result Comment: PUTT ING UNDER DIFFERENT REQ Performed By: #### L 100.0500, L500.2500 ####[facility] [address] [place], [address] Basic Metabolic Profile (BMP) Normal 136-145 [facility] Comment on above: Order Comment: 503.2 Result Comment: PUTT ING UNDER DIFFERENT REQ Performed By: #### L 100.0500, L500.2500 ####[facility] [address] [place], [address] CBC-Complete Blood Cnt No Di ffon 06-03-2024 Erythrocyte distribution width (RBC) [Ratio] 20.0 % High 11.6-14.6 [facility] Comment on above: Order Comment: 503.2 Performed By: #### L 100.0500, L500.2500 ####[facility] [address] [place], [address] Hematocrit (Bld) [Volume fraction] 33.1 % Low 37-47 [facility] Comment on above: Order Comment: 503.2 Performed By: #### L 100.0500, L500.2500 ####[facility] [address] [place], [address] Hemoglobin (Bld) [Mass/Vol] 10.0 g/dL Low 12.0-15.0 [facility] Comment on above: Order Comment: 503.2 Performed By: #### L 100.0500, L500.2500 ####[facility] [address] [place], [address] MCH (RBC) [Entitic mass] 24.4 pg Low 27.0-32.0 [facility] Comment on above: Order Comment: 503.2 Performed By: #### L 100.0500, L500.2500 ####[facility] [address] [place], [address] MCHC (RBC) [Mass/Vol] 30.2 g/dL Low 32-36 [facility] Comment on above: Order Comment: 503.2 Performed By: #### L 100.0500, L500.2500 ####[facility] [address] [place], [address] MCV (RBC) [Entitic vol] 80.9 fL Low 81-99 [facility] Comment on above: Order Comment: 503.2 Performed By: #### L 100.0500, L500.2500 ####[facility] [address] [place], [address] Platelet mean volume (Bld) [Entitic vol] 9.7 fL Normal 6.2-12.0 [facility] Comment on above: Order Comment: 503.2 Performed By: #### L 100.0500, L500.2500 ####[facility] [address] [place], [address] Platelets (Bld) [#/Vol] 156 10*3/uL Normal 150-450 [facility] Comment on above: Order Comment: 503.2 Performed By: #### L 100.0500, L500.2500 ####[facility] [address] [place], [address] RBC (Bld) [#/Vol] 4.09 10*6/uL Low 4.2-5.4 [facility] Comment on above: Order Comment: 503.2 Performed By: #### L 100.0500, L500.2500 ####[facility] [address] [place], [address] RDW SD 58.8 fl High 35.1-43.9 [facility] Comment on above: Order Comment: 503.2 Performed By: #### L 100.0500, L500.2500 ####[facility] [address] [place], [address] WBC (Bld) [#/Vol] 6.0 10*3/uL Normal 4.4-11.0 [facility] Comment on above: Order Comment: 503.2 Performed By: #### L 100.0500, L500.2500 ####[facility] [address] [place], [address] Erythrocyte distribution wid th ratioOrdered By: Delgado Amaro on 06-03-2024 Erythrocyte distribution width (RBC) [Ratio] 20.0 % High 11.6-14.6 [facility] Erythrocyte distribution wid th standard deviationOrdered By: Delgado Amaro on 06-03-2024 Erythrocyte distribution width (RBC) [Entitic vol] 58.8 fL High 35.1-43.9 [facility] Erythrocyte distribution width (RBC) [Ratio] 58.8 fl High 35.1-43.9 [facility] GFR/1.73 sq M.predicted tanner g non-blacks MDRD (S/P/Bld) [Vol rate/Area]Ordered By: Delgado Amaro on 06-03-2024 Estimated GFR (MDRD) Non-Af Amer 47 Low >60 [facility] Comment on above: mL/min/1.73m2 CKD-EP I Creatinine Equation (2020) Glomerular filtration rate ( GFR) estimation/1.73 sq m using serum, plasma, or whole bOrdered By: Delgado Amaro on 06-03-2024 GFR/1.73 sq M.predicted among non-blacks MDRD (S/P/Bld) [Vol rate/Area] 47 mL/min/{1.73_m2} Low >60 [facility] Comment on above: mL/min/1.73m2 CKD-EP I Creatinine Equation (2020) Result Comment: mL/m in/1.73m2 CKD-EPI Creatinine Equation (2020) Performed By: #### L 500.7340 ####[facility] [address] [place], [address] Hematocrit Auto (Bld) [Volum e fraction]Ordered By: Delgado Amaro on 06-03-2024 Hematocrit (Bld) [Volume fraction] 33.1 % Low 37-47 [facility] Hemoglobin measurementOrdere d By: Delgado Amaro on 06-03-2024 Hemoglobin (Bld) [Mass/Vol] 10.0 g/dL Low 12.0-15.0 [facility] MCV (mean corpuscular volume ) determinationOrdered By: Delgado Amaro on 06-03-2024 MCV (RBC) [Entitic vol] 80.9 fL Low 81-99 [facility] Mean corpuscular hemoglobin (MCH) determinationOrdered By: Delgado Amaro on 06-03-2024 MCH (RBC) [Entitic mass] 24.4 pg Low 27.0-32.0 [facility] Mean corpuscular hemoglobin concentration (MCHC) determinationOrdered By: Delgado Amaro on 06-03-2024 MCHC (RBC) [Mass/Vol] 30.2 g/dL Low 32-36 [facility] Mean platelet volume determi nationOrdered By: Delgado Amaro on 06-03-2024 Platelet mean volume (Bld) [Entitic vol] 9.7 fL 6.2-12.0 [facility] Platelet countOrdered By: Kade Amaro on 06-03-2024 Platelets (Bld) [#/Vol] 156 10*3/uL 150-450 [facility] RBC Auto (Bld) [#/Vol]Ordere d By: Delgado Amaro on 06-03-2024 RBC (Bld) [#/Vol] 4.09 10*6/uL Low 4.2-5.4 [facility] Serum glucose measurement (m ass/volume)Ordered By: Delgado Amaro on 06-03-2024 Glucose [Mass/Vol] 97 mg/dL Normal 70-99 [facility] Comment on above: Performed By: #### L 500.2500 ####[facility] [address] [place], [place], [phone] Serum or plasma anion gap de termination (moles/volume)Ordered By: Delgado Amaro on 06-03-2024 Anion gap [Moles/Vol] 10 mmol/L Normal 5-15 [facility] Comment on above: Performed By: #### L 500.2500 ####[facility] [address] [place], [address] Serum or plasma calcium kay urement (mass/volume)Ordered By: Delgado Amaro on 06-03-2024 Calcium [Mass/Vol] 9.3 mg/dL Normal 7.6-11.0 [facility] Comment on above: Performed By: #### L 500.2500 ####[facility] [address] [place], [address] Serum or plasma creatinine m easurement (moles/volume)Ordered By: Delgado Amaro on 06-03-2024 Creatinine [Mass/Vol] 1.2 mg/dL High 0.6-1.0 [facility] Comment on above: Performed By: #### L 500.2500 ####[facility] [address] [place], [place], [phone]) Creatinine [Moles/Vol] 1.2 mg/dL High 0.6-1.0 [facility] Serum or plasma potassium me asurementOrdered By: Delgado Amaro on 06-03-2024 Potassium [Moles/Vol] 4.4 mmol/L Normal 3.3-5.1 [facility] Comment on above: Performed By: #### L 500.2500 ####[facility] [address] [place], [phone] Serum or plasma sodium measu rement (moles/volume)Ordered By: Delgado Amaro on 06-03-2024 Sodium [Moles/Vol] 139 mmol/L Normal 133-145 [facility] Comment on above: Performed By: #### L 500.2500 ####[facility] [address] [place], [address] Serum or plasma urea nitroge n measurement (mass/volume)Ordered By: Delgado Amaro on 06-03-2024 Urea nitrogen [Mass/Vol] 30 mg/dL High 4-19 [facility] Comment on above: Performed By: #### L 500.2500 ####[facility] [address] [place], [address] White blood cell (WBC) count Ordered By: Delgado Amaro on 06-03-2024 WBC (Bld) [#/Vol] 6.0 10*3/uL 4.4-11.0 [facility] Automated blood erythrocyte countOrdered By: April Mullen on 06-02-2024 RBC (Bld) [#/Vol] 4.17 10*6/uL Low 4.2-5.4 [facility] Comment on above: Order Comment: 503.2 Performed By: #### L 100.0500, L500.2500 ####[facility] [address] [place], [address] Automated blood hematocrit ( percentage)Ordered By: April Mullen on 06-02-2024 Hematocrit (Bld) [Volume fraction] 34.0 % Low 37-47 [facility] Comment on above: Order Comment: 503.2 Performed By: #### L 100.0500, L500.2500 ####[facility] [address] [place], [address] Basic Metabolic Profile (BMP )on 06-02-2024 BUN/CRE 21.6 RATIO High 10-20 [facility] Comment on above: Order Comment: 503.2 Performed By: #### L 100.0500, L500.2500 ####[facility] [address] [place], [address] CA,Total 9.1 mg/dL Normal 8.5-10.1 [facility] Comment on above: Order Comment: 503.2 Performed By: #### L 100.0500, L500.2500 ####[facility] [address] [place], [address] EST GFR - AA 54 mL/min Low >60 [facility] Comment on above: Order Comment: 503.2 Result Comment: Afri can Niue[place] GFR Calc Performed By: #### L 100.0500, L500.2500 ####[facility] [address] [place], [address] GAP 4 Low 5-15 [facility] Comment on above: Order Comment: 503.2 Performed By: #### L 100.0500, L500.2500 ####[facility] [address] [place], [address] Blood urea nitrogen (BUN)/cr eatinine ratioOrdered By: April Mullen on 06-02-2024 Urea nitrogen/Creatinine [Mass ratio] 21.6 mg/mg High 10-20 [facility] CBC-Complete Blood Cnt No Di ffon 06-02-2024 RDW SD 58.6 fl High 35.1-43.9 [facility] Comment on above: Order Comment: 503.2 Performed By: #### L 100.0500, L500.2500 ####[facility] [address] [place], [address] Carbon dioxide measurementOr dered By: April Mullen on 06-02-2024 CO2 [Moles/Vol] 33.0 mmol/L High 21.0-32.0 [facility] Comment on above: Order Comment: 503.2 Performed By: #### L 100.0500, L500.2500 ####[facility] [address] [place], [address] Chloride measurementOrdered By: April Mullen on 06-02-2024 Chloride [Moles/Vol] 101 mmol/L Normal 98-107 [facility] Comment on above: Order Comment: 503.2 Performed By: #### L 100.0500, L500.2500 ####[facility] [address] [place], [place], [id number] Erythrocyte distribution wid th ratioOrdered By: April Mullen on 06-02-2024 Erythrocyte distribution width (RBC) [Ratio] 20.0 % High 11.6-14.6 [facility] Comment on above: Order Comment: 503.2 Performed By: #### L 100.0500, L500.2500 ####[facility] [address], [address] Erythrocyte distribution wid th standard deviationOrdered By: April Mullen on 06-02-2024 Erythrocyte distribution width (RBC) [Entitic vol] 58.6 fL High 35.1-43.9 [facility] Erythrocyte distribution width (RBC) [Ratio] 58.6 fl High 35.1-43.9 [facility] Estimated glomerular filtrat ion rate (GFR) AmericanOrdered By: April Mullen on 06-02-2024 Estimated GFR (MDRD) Amer 54 mL/min Low >60 [facility] Comment on above: GFR Calc Glomerular filtration rate ( GFR) estimationOrdered By: April Mullen on 06-02-2024 GFR/1.73 sq M.predicted among non-blacks MDRD (S/P/Bld) [Vol rate/Area] 44 mL/min/{1.73_m2} Low >60 [facility] Comment on above: Non- GFR Calc Order Comment: 503.2 Result Comment: Non- GFR Calc Performed By: #### L 100.0500, L500.2500 ####[facility] [address] [place], [place], [id number] Estimated GFR (MDRD) Non-Af Amer 44 mL/min Low >60 [facility] Comment on above: Non- GFR Calc Glucose measurementOrdered B y: April Mullen on 06-02-2024 Glucose [Mass/Vol] 101 mg/dL Normal 74-106 [facility] Comment on above: Fasting Glucose resu lt from 100 to 125 mg/dL suggests IMPAIRED HOMEOSTASIS per A.D.A. criteria. Order Comment: 503.2 Result Comment: Fast ing Glucose result from 100 to 125 mg/dLsuggests IMPAIRED HOMEOSTASIS per A.D.A. criteria. Performed By: #### L 100.0500, L500.2500 ####[facility] [address] [place], [address] Hemoglobin measurementOrdere d By: April Mullen on 06-02-2024 Hemoglobin (Bld) [Mass/Vol] 10.2 g/dL Low 12.0-15.0 [facility] Comment on above: Order Comment: 503.2 Performed By: #### L 100.0500, L500.2500 ####[facility] [address] [place], [address] MCV (mean corpuscular volume ) determinationOrdered By: April Mullen on 06-02-2024 MCV (RBC) [Entitic vol] 81.5 fL Normal 81-99 [facility] Comment on above: Order Comment: 503.2 Performed By: #### L 100.0500, L500.2500 ####[facility] [address] [place], [address] Mean corpuscular hemoglobin (MCH) determinationOrdered By: April Mullen on 06-02-2024 MCH (RBC) [Entitic mass] 24.5 pg Low 27.0-32.0 [facility] Comment on above: Order Comment: 503.2 Performed By: #### L 100.0500, L500.2500 ####[facility] [address] [place], [address] Mean corpuscular hemoglobin concentration (MCHC) determinationOrdered By: April Mullen on 06-02-2024 MCHC (RBC) [Mass/Vol] 30.0 g/dL Low 32-36 [facility] Comment on above: Order Comment: 503.2 Performed By: #### L 100.0500, L500.2500 ####[facility] [address] [place], [address] Mean platelet volume determi nationOrdered By: April Mullen on 06-02-2024 Platelet mean volume (Bld) [Entitic vol] 9.8 fL Normal 6.2-12.0 [facility] Comment on above: Order Comment: 503.2 Performed By: #### L 100.0500, L500.2500 ####[facility] [address] [place], [address] Platelet countOrdered By: Darvin Mullen on 06-02-2024 Platelets (Bld) [#/Vol] 174 10*3/uL Normal 150-450 [facility] Comment on above: Order Comment: 503.2 Performed By: #### L 100.0500, L500.2500 ####[facility] [address] [place], [address] Potassium measurementOrdered By: April Mullen on 06-02-2024 Potassium [Moles/Vol] 4.2 mmol/L Normal 3.5-5.1 [facility] Comment on above: Order Comment: 503.2 Performed By: #### L 100.0500, L500.2500 ####[facility] [address] [place], [address] Serum anion gap measurementO rdered By: April Mullen on 06-02-2024 Anion gap [Moles/Vol] 4 mmol/L Low 5-15 [facility] Serum or plasma calcium kay urement (mass/volume)Ordered By: April Mullen on 06-02-2024 Calcium [Mass/Vol] 9.1 mg/dL 8.5-10.1 [facility] Serum or plasma creatinine m easurement (mass/volume)Ordered By: April Mullen on 06-02-2024 Creatinine [Mass/Vol] 1.25 mg/dL High 0.55-1.02 [facility] Comment on above: The validity of the calculated GFR & GFRAA in patients over 70 years has not been determined. Clinical correlation is essential. Order Comment: 503.2 Result Comment: The validity of the calculated GFR GFRAA in patients over70 years has not been determined. Clinical correlation isessential. Performed By: #### L 100.0500, L500.2500 ####[facility] [address], [address] Serum or plasma urea nitroge n measurement (mass/volume)Ordered By: April Mullen on 06-02-2024 Urea nitrogen [Mass/Vol] 27 mg/dL High - [facility] Comment on above: Order Comment: 503.2 Performed By: #### L 100.0500, L500.2500 ####[facility] [address] [place], [address] Sodium levelOrdered By: Yair Mullen on 06-02-2024 Sodium [Moles/Vol] 138 mmol/L Normal 136-145 [facility] Comment on above: Order Comment: 503.2 Performed By: #### L 100.0500, L500.2500 ####[facility] [address], [address] White blood cell (WBC) count Ordered By: April Mullen on 06-02-2024 WBC (Bld) [#/Vol] 6.4 10*3/uL Normal 4.4-11.0 [facility] Comment on above: Order Comment: 503.2 Performed By: #### L 100.0500, L500.2500 ####[facility] [address] [place], [address] Basic Metabolic Profile (BMP )on 05-27-2024 BUN/CRE 20.0 RATIO Normal 10-20 [facility] Comment on above: Order Comment: 503.2 Performed By: #### L 100.0500, L500.2500, L100.4500 ####[facility] [address] [place], [address] CA,Total 8.7 mg/dL Normal 8.5-10.1 [facility] Comment on above: Order Comment: 503.2 Performed By: #### L 100.0500, L500.2500, L100.4500 ####[facility] [address] [place], [address] Chloride [Moles/Vol] 104 mmol/L Normal 98-107 [facility] Comment on above: Order Comment: 503.2 Performed By: #### L 100.0500, L500.2500, L100.4500 ####[facility] [address] [place], [address] CO2 [Moles/Vol] 30.0 mmol/L Normal 21.0-32.0 [facility] Comment on above: Order Comment: 503.2 Performed By: #### L 100.0500, L500.2500, L100.4500 ####[facility] [address] [place], [address] Creatinine [Mass/Vol] 1.25 mg/dL High 0.55-1.02 [facility] Comment on above: Order Comment: 503.2 Result Comment: The validity of the calculated GFR GFRAA in patients over70 years has not been determined. Clinical correlation isessential. Performed By: #### L 100.0500, L500.2500, L100.4500 ####[facility] [address] [place], [address] EST GFR - AA 54 mL/min Low >60 [facility] Comment on above: Order Comment: 503.2 Result Comment: Afri can Ni[place] GFR Calc Performed By: #### L 100.0500, L500.2500, L100.4500 ####[facility] [address] [place], [address] GAP 7 Normal 5-15 [facility] Comment on above: Order Comment: 503.2 Performed By: #### L 100.0500, L500.2500, L100.4500 ####[facility] [address] [place], [address] GFR/1.73 sq M.predicted among non-blacks MDRD (S/P/Bld) [Vol rate/Area] 44 mL/min/{1.73_m2} Low >60 [facility] Comment on above: Order Comment: 503.2 Result Comment: Non- GFR Calc Performed By: #### L 100.0500, L500.2500, L100.4500 ####[facility] [address] [place], [address] Glucose [Mass/Vol] 101 mg/dL Normal 74-106 [facility] Comment on above: Order Comment: 503.2 Result Comment: Fast ing Glucose result from 100 to 125 mg/dLsuggests IMPAIRED HOMEOSTASIS per A.D.A. criteria. Performed By: #### L 100.0500, L500.2500, L100.4500 ####[facility] [address] [place], [address] Potassium [Moles/Vol] 3.7 mmol/L Normal 3.5-5.1 [facility] Comment on above: Order Comment: 503.2 Performed By: #### L 100.0500, L500.2500, L100.4500 ####[facility] [address] [place], [address] Sodium [Moles/Vol] 141 mmol/L Normal 136-145 [facility] Comment on above: Order Comment: 503.2 Performed By: #### L 100.0500, L500.2500, L100.4500 ####[facility] [address] [place], [address] Urea nitrogen [Mass/Vol] 25 mg/dL High 7-18 [facility] Comment on above: Order Comment: 503.2 Performed By: #### L 100.0500, L500.2500, L100.4500 ####[facility] [address] [place], [address] Blood manual differential co mment interpretation (narrative result)Ordered By: April Mullen on 05-27-2024 Manual differential comment Jd (Bld) [Interp] See comment [facility] Comment on above: 1+ ANISOCYTOSIS1+ OV ALOCYTESSLIGHTLY DECREASED PLATELETS Blood urea nitrogen (BUN)/cr eatinine ratioOrdered By: April Mullen on 05-27-2024 Urea nitrogen/Creatinine [Mass ratio] 20.0 mg/mg 10- [facility] CBC-Complete Blood Cnt No Di ffon 05-27-2024 Erythrocyte distribution width (RBC) [Ratio] 20.2 % High 11.6-14.6 [facility] Comment on above: Order Comment: 503.2 Performed By: #### L 100.0500, L500.2500, L100.4500 ####[facility] [address] [place], [address] Hematocrit (Bld) [Volume fraction] 35.3 % Low 37-47 [facility] Comment on above: Order Comment: 503.2 Performed By: #### L 100.0500, L500.2500, L100.4500 ####[facility] [address] [place], [address] Hemoglobin (Bld) [Mass/Vol] 10.5 g/dL Low 12.0-15.0 [facility] Comment on above: Order Comment: 503.2 Performed By: #### L 100.0500, L500.2500, L100.4500 ####[facility] [address] [place], [address] MCH (RBC) [Entitic mass] 24.0 pg Low 27.0-32.0 [facility] Comment on above: Order Comment: 503.2 Performed By: #### L 100.0500, L500.2500, L100.4500 ####[facility] [address] [place] [place], [address] MCHC (RBC) [Mass/Vol] 29.7 g/dL Low 32-36 [facility] Comment on above: Order Comment: 503.2 Performed By: #### L 100.0500, L500.2500, L100.4500 ####[facility] [address] [place], [address] MCV (RBC) [Entitic vol] 80.6 fL Low 81-99 [facility] Comment on above: Order Comment: 503.2 Performed By: #### L 100.0500, L500.2500, L100.4500 ####[facility] [address] [place], [address] Platelet mean volume (Bld) [Entitic vol] 9.2 fL Normal 6.2-12.0 [facility] Comment on above: Order Comment: 503.2 Performed By: #### L 100.0500, L500.2500, L100.4500 ####[facility] [address] [place], [address] Platelets (Bld) [#/Vol] 149 10*3/uL Low 150-450 [facility] Comment on above: Order Comment: 503.2 Performed By: #### L 100.0500, L500.2500, L100.4500 ####[facility] [address] [place], [address] RBC (Bld) [#/Vol] 4.38 10*6/uL Normal 4.2-5.4 [facility] Comment on above: Order Comment: 503.2 Performed By: #### L 100.0500, L500.2500, L100.4500 ####[facility] [address] [place] [place], [address] RDW SD 58.6 fl High 35.1-43.9 [facility] Comment on above: Order Comment: 503.2 Performed By: #### L 100.0500, L500.2500, L100.4500 ####[facility] [address] [place], [address] WBC (Bld) [#/Vol] 5.3 10*3/uL Normal 4.4-11.0 [facility] Comment on above: Order Comment: 503.2 Performed By: #### L 100.0500, L500.2500, L100.4500 ####[facility] [address] [place], [place], [id number]) Carbon dioxide measurementOr dered By: April Mullen on 05-27-2024 CO2 [Moles/Vol] 30.0 mmol/L 21.0-32.0 [facility] Chloride measurementOrdered By: April Mullen on 05-27-2024 Chloride [Moles/Vol] 104 mmol/L 98-107 [facility] Differential Commenton 05-27 SMEAR COMMENT Normal [facility] Comment on above: Order Comment: 503.2 Result Comment: 1+ A NISOCYTOSIS1+ OVALOCYTESSLIGHTLY DECREASED PLATELETS Performed By: #### L 100.0500, L500.2500, L100.4500 ####[facility] [address] [place], [place], [address] Erythrocyte distribution wid th ratioOrdered By: April Mullen on 05-27-2024 Erythrocyte distribution width (RBC) [Ratio] 20.2 % High 11.6-14.6 [facility] Erythrocyte distribution wid th standard deviationOrdered By: April Mullen on 05-27-2024 Erythrocyte distribution width (RBC) [Entitic vol] 58.6 fL High 35.1-43.9 [facility] Erythrocyte distribution width (RBC) [Ratio] 58.6 fl High 35.1-43.9 [facility] Estimated glomerular filtrat ion rate (GFR) AmericanOrdered By: April Mullen on 05-27-2024 Estimated GFR (MDRD) Amer 54 mL/min Low >60 [facility] Comment on above: GFR Calc Glomerular filtration rate ( GFR) estimationOrdered By: April Mullen on 05-27-2024 Estimated GFR (MDRD) Non-Af Amer 44 mL/min Low >60 [facility] Comment on above: Non- GFR Calc GFR/1.73 sq M.predicted among non-blacks MDRD (S/P/Bld) [Vol rate/Area] 44 mL/min/{1.73_m2} Low >60 [facility] Comment on above: Non- GFR Calc Glucose measurementOrdered B y: Arpil Mullen on 05-27-2024 Glucose [Mass/Vol] 101 mg/dL 74-106 [facility] Comment on above: Fasting Glucose resu lt from 100 to 125 mg/dL suggests IMPAIRED HOMEOSTASIS per A.D.A. criteria. Hematocrit Auto (Bld) [Volum e fraction]Ordered By: April Mullen on 05-27-2024 Hematocrit (Bld) [Volume fraction] 35.3 % Low 37-47 [facility] Hemoglobin measurementOrdere d By: April Mullen on 05-27-2024 Hemoglobin (Bld) [Mass/Vol] 10.5 g/dL Low 12.0-15.0 [facility] MCV (mean corpuscular volume ) determinationOrdered By: April Mullen on 05-27-2024 MCV (RBC) [Entitic vol] 80.6 fL Low 81-99 [facility] Manual differential comment Jd (Bld) [Interp]Ordered By: April Mullen on 05-27-2024 Differential Comment See comment [facility] Comment on above: 1+ ANISOCYTOSIS1+ OV ALOCYTESSLIGHTLY DECREASED PLATELETS Mean corpuscular hemoglobin (MCH) determinationOrdered By: April Mullen on 05-27-2024 MCH (RBC) [Entitic mass] 24.0 pg Low 27.0-32.0 [facility] Mean corpuscular hemoglobin concentration (MCHC) determinationOrdered By: April Mullen on 05-27-2024 MCHC (RBC) [Mass/Vol] 29.7 g/dL Low 32-36 [facility] Mean platelet volume determi nationOrdered By: April Mullen on 05-27-2024 Platelet mean volume (Bld) [Entitic vol] 9.2 fL 6.2-12.0 [facility] Platelet countOrdered By: Darvin Mullen on 05-27-2024 Platelets (Bld) [#/Vol] 149 10*3/uL Low 150-450 [facility] Potassium measurementOrdered By: April Mullen on 05-27-2024 Potassium [Moles/Vol] 3.7 mmol/L 3.5-5.1 [facility] RBC Auto (Bld) [#/Vol]Ordere d By: April Mullen on 05-27-2024 RBC (Bld) [#/Vol] 4.38 10*6/uL 4.2-5.4 [facility] Serum anion gap measurementO rdered By: April Mullen on 05-27-2024 Anion gap [Moles/Vol] 7 mmol/L 5-15 [facility] Serum or plasma calcium kay urement (mass/volume)Ordered By: April Mullen on 05-27-2024 Calcium [Mass/Vol] 8.7 mg/dL 8.5-10.1 [facility] Serum or plasma creatinine m easurement (mass/volume)Ordered By: April Mullen on 05-27-2024 Creatinine [Mass/Vol] 1.25 mg/dL High 0.55-1.02 [facility] Comment on above: The validity of the calculated GFR & GFRAA in patients over 70 years has not been determined. Clinical correlation is essential. Serum or plasma urea nitroge n measurement (mass/volume)Ordered By: April Mullen on 05-27-2024 Urea nitrogen [Mass/Vol] 25 mg/dL High 7-18 [facility] Sodium levelOrdered By: Yair Mullen on 05-27-2024 Sodium [Moles/Vol] 141 mmol/L 136-145 [facility] White blood cell (WBC) count Ordered By: April Mullen on 05-27-2024 WBC (Bld) [#/Vol] 5.3 10*3/uL 4.4-11.0 [facility] 89-PX-Zvbhcey DOrdered By: Selina Amaro on 05-12-2024 Vitamin D 25-Hydroxy 41.0 ng/mL [facility] Comment on above: Vitamin D 25(OH) Sta tus Range Deficiency <20 ng/mL (50nmol/L) Insufficiency 20 - 30 ng/mL (50 - 75 nmol/L) Sufficiency 30 - 100 ng/mL (75 - 250 nmol/L) Toxicity >100 ng/mL (>250 nmol/L) Albumin to globulin ratioOrd ered By: Delgado Amaro on 05-12-2024 Albumin/Globulin [Mass ratio] 0.7 {ratio} Low 0.9-2.4 [facility] BNP (brain natriuretic pepti de measurement)Ordered By: Delgado Amaro on 05-12-2024 Natriuretic peptide B (Bld) [Mass/Vol] 403.6 pg/mL High 0-100 [facility] Comment on above: Performed By: #### L 100.0500, L506.1000, L500.4050, L503.6620, L100.4500 ####[facility] [address] [place], [address] Bilirubin, totalOrdered By: Delgado Amaro on 05-12-2024 Bilirubin [Mass/Vol] 0.20 mg/dL 0.20-1.00 [facility] Comment on above: For patients on eltr ombopag therapy, use of Dimension [place] TBIL is not recommended. Blood manual differential co mment interpretation (narrative result)Ordered By: Delgado Amaro on 05-12-2024 Manual differential comment Jd (Bld) [Interp] COMMENT [facility] Comment on above: 1+ ANISO. Blood urea nitrogen (BUN)/cr eatinine ratioOrdered By: Delgado Amaro on 05-12-2024 Urea nitrogen/Creatinine [Mass ratio] 26.5 mg/mg High 10-20 [facility] CBC-Complete Blood Cnt No Di ffon 05-12-2024 Erythrocyte distribution width (RBC) [Ratio] 20.8 % High 11.6-14.6 [facility] Comment on above: Performed By: #### L 100.0500, L506.1000, L500.4050, L503.6620, L100.4500 ####[facility] [address] [place], [address] Hematocrit (Bld) [Volume fraction] 31.4 % Low 37-47 [facility] Comment on above: Performed By: #### L 100.0500, L506.1000, L500.4050, L503.6620, L100.4500 ####[facility] [address] [place], [address] Hemoglobin (Bld) [Mass/Vol] 9.2 g/dL Low 12.0-15.0 [facility] Comment on above: Performed By: #### L 100.0500, L506.1000, L500.4050, L503.6620, L100.4500 ####[facility] [address] [place], [address] MCH (RBC) [Entitic mass] 23.8 pg Low 27.0-32.0 [facility] Comment on above: Performed By: #### L 100.0500, L506.1000, L500.4050, L503.6620, L100.4500 ####[facility] [address] [place], [address] MCHC (RBC) [Mass/Vol] 29.3 g/dL Low 32-36 [facility] Comment on above: Performed By: #### L 100.0500, L506.1000, L500.4050, L503.6620, L100.4500 ####[facility] [address] [place], [address] MCV (RBC) [Entitic vol] 81.3 fL Normal 81-99 [facility] Comment on above: Performed By: #### L 100.0500, L506.1000, L500.4050, L503.6620, L100.4500 ####[facility] [address] [place], [address] Platelet mean volume (Bld) [Entitic vol] 9.5 fL Normal 6.2-12.0 [facility] Comment on above: Performed By: #### L 100.0500, L506.1000, L500.4050, L503.6620, L100.4500 ####[facility] [address] [place], [address] Platelets (Bld) [#/Vol] 164 10*3/uL Normal 150-450 [facility] Comment on above: Performed By: #### L 100.0500, L506.1000, L500.4050, L503.6620, L100.4500 ####[facility] [address] [place], [address] RBC (Bld) [#/Vol] 3.86 10*6/uL Low 4.2-5.4 [facility] Comment on above: Performed By: #### L 100.0500, L506.1000, L500.4050, L503.6620, L100.4500 ####[facility] [address] [place], [address] RDW SD 60.6 fl High 35.1-43.9 [facility] Comment on above: Performed By: #### L 100.0500, L506.1000, L500.4050, L503.6620, L100.4500 ####[facility] [address] [place], [address] WBC (Bld) [#/Vol] 5.6 10*3/uL Normal 4.4-11.0 [facility] Comment on above: Performed By: #### L 100.0500, L506.1000, L500.4050, L503.6620, L100.4500 ####[facility] [address] [place], [address] Carbon dioxide measurementOr dered By: Delgado Amaro on 05-12-2024 CO2 [Moles/Vol] 30.0 mmol/L 21.0-32.0 [facility] Chloride measurementOrdered By: Delgado Amaro on 05-12-2024 Chloride [Moles/Vol] 103 mmol/L 98-107 [facility] Comprehensive Metabolic Prof ilon 05-12-2024 Albumin [Mass/Vol] 2.6 g/dL Low 3.2-5.0 [facility] Comment on above: Performed By: #### L 100.0500, L506.1000, L500.4050, L503.6620, L100.4500 ####[facility] [address] [place], [address] Albumin/Globulin [Mass ratio] 0.7 {ratio} Low 0.9-2.4 [facility] Comment on above: Performed By: #### L 100.0500, L506.1000, L500.4050, L503.6620, L100.4500 ####[facility] [address] [place], [address] ALK P 109 U/L Normal 45-117 [facility] Comment on above: Performed By: #### L 100.0500, L506.1000, L500.4050, L503.6620, L100.4500 ####[facility] [address] [place], [address] ALT [Catalytic activity/Vol] 14 U/L Normal 13-56 [facility] Comment on above: Performed By: #### L 100.0500, L506.1000, L500.4050, L503.6620, L100.4500 ####[facility] [address] [place], [address] AST [Catalytic activity/Vol] 20 U/L Normal 15-37 [facility] Comment on above: Performed By: #### L 100.0500, L506.1000, L500.4050, L503.6620, L100.4500 ####[facility] [address] [place], [place], [id number] Bilirubin [Mass/Vol] 0.20 mg/dL Normal 0.20-1.00 [facility] Comment on above: Result Comment: For patients on eltrombopag therapy, use of Dimension [place] TBIL is not recommended. Performed By: #### L 100.0500, L506.1000, L500.4050, L503.6620, L100.4500 ####[facility] [address] [place], [address] BUN/CRE 26.5 RATIO High 10-20 [facility] Comment on above: Performed By: #### L 100.0500, L506.1000, L500.4050, L503.6620, L100.4500 ####[facility] [address] [place], [address] CA,Total 9.0 mg/dL Normal 8.5-10.1 [facility] Comment on above: Performed By: #### L 100.0500, L506.1000, L500.4050, L503.6620, L100.4500 ####[facility] [address] [place], [address] Chloride [Moles/Vol] 103 mmol/L Normal 98-107 [facility] Comment on above: Performed By: #### L 100.0500, L506.1000, L500.4050, L503.6620, L100.4500 ####[facility] [address] [place], [address] CO2 [Moles/Vol] 30.0 mmol/L Normal 21.0-32.0 [facility] Comment on above: Performed By: #### L 100.0500, L506.1000, L500.4050, L503.6620, L100.4500 ####[facility] [address] [place], [address] Creatinine [Mass/Vol] 1.13 mg/dL High 0.55-1.02 [facility] Comment on above: Result Comment: The validity of the calculated GFR GFRAA in patients over70 years has not been determined. Clinical correlation isessential. Performed By: #### L 100.0500, L506.1000, L500.4050, L503.6620, L100.4500 ####[facility] [address] [place], [address] EST GFR - AA 60 mL/min Normal >60 [facility] Comment on above: Result Comment: Afri can Ni[place]an GFR Calc Performed By: #### L 100.0500, L506.1000, L500.4050, L503.6620, L100.4500 ####[facility] [address] [place], [address] GAP 7 Normal 5-15 [facility] Comment on above: Performed By: #### L 100.0500, L506.1000, L500.4050, L503.6620, L100.4500 ####[facility] [address] [place], [address] GFR/1.73 sq M.predicted among non-blacks MDRD (S/P/Bld) [Vol rate/Area] 50 mL/min/{1.73_m2} Low >60 [facility] Comment on above: Result Comment: Non- GFR Calc Performed By: #### L 100.0500, L506.1000, L500.4050, L503.6620, L100.4500 ####[facility] [address] [place], [address] Globulin (S) [Mass/Vol] 3.8 g/dL Normal 2.2-4.2 [facility] Comment on above: Performed By: #### L 100.0500, L506.1000, L500.4050, L503.6620, L100.4500 ####[facility] [address] [place], [address] Glucose [Mass/Vol] 97 mg/dL Normal 74-106 [facility] Comment on above: Performed By: #### L 100.0500, L506.1000, L500.4050, L503.6620, L100.4500 ####[facility] [address] [place], [address] Potassium [Moles/Vol] 3.6 mmol/L Normal 3.5-5.1 [facility] Comment on above: Performed By: #### L 100.0500, L506.1000, L500.4050, L503.6620, L100.4500 ####[facility] [address] [place], [address] Sodium [Moles/Vol] 140 mmol/L Normal 136-145 [facility] Comment on above: Performed By: #### L 100.0500, L506.1000, L500.4050, L503.6620, L100.4500 ####[facility] [address] [place], [address] T PROT 6.4 g/dL Normal 6.4-8.2 [facility] Comment on above: Performed By: #### L 100.0500, L506.1000, L500.4050, L503.6620, L100.4500 ####[facility] [address] [place], [address] Urea nitrogen [Mass/Vol] 30 mg/dL High 7-18 [facility] Comment on above: Performed By: #### L 100.0500, L506.1000, L500.4050, L503.6620, L100.4500 ####[facility] [address] [place], [address] Differential Commenton 05-12 SMEAR COMMENT COMMENT Normal [facility] Comment on above: Result Comment: 1+ A NISO. Performed By: #### L 100.0500, L506.1000, L500.4050, L503.6620, L100.4500 ####[facility] [address] [place], [address] Erythrocyte distribution wid th ratioOrdered By: Delgado Amaro on 05-12-2024 Erythrocyte distribution width (RBC) [Ratio] 20.8 % High 11.6-14.6 [facility] Erythrocyte distribution wid th standard deviationOrdered By: Delgado Amaro on 05-12-2024 Erythrocyte distribution width (RBC) [Entitic vol] 60.6 fL High 35.1-43.9 [facility] Erythrocyte distribution width (RBC) [Ratio] 60.6 fl High 35.1-43.9 [facility] Estimated glomerular filtrat ion rate (GFR) AmericanOrdered By: Delgado Amaro on 05-12-2024 Estimated GFR (MDRD) Amer 60 mL/min >60 [facility] Comment on above: GFR Calc Glomerular filtration rate ( GFR) estimationOrdered By: Delgado Amaro on 05-12-2024 Estimated GFR (MDRD) Non-Af Amer 50 mL/min Low >60 [facility] Comment on above: Non- GFR Calc GFR/1.73 sq M.predicted among non-blacks MDRD (S/P/Bld) [Vol rate/Area] 50 mL/min/{1.73_m2} Low >60 [facility] Comment on above: Non- GFR Calc Glucose measurementOrdered B y: Delgado Amaro on 05-12-2024 Glucose [Mass/Vol] 97 mg/dL 74-106 [facility] Hematocrit Auto (Bld) [Volum e fraction]Ordered By: Delgado Amaro on 05-12-2024 Hematocrit (Bld) [Volume fraction] 31.4 % Low 37-47 [facility] Hemoglobin measurementOrdere d By: Delgado Amaro on 05-12-2024 Hemoglobin (Bld) [Mass/Vol] 9.2 g/dL Low 12.0-15.0 [facility] Laboratory - Chemistry and C hemistry - challengeOrdered By: Delgado Amaro on 05-12-2024 AST [Catalytic activity/Vol] 20 U/L 15-37 [facility] MCV (mean corpuscular volume ) determinationOrdered By: Delgado Amaro on 05-12-2024 MCV (RBC) [Entitic vol] 81.3 fL 81-99 [facility] Manual differential comment Jd (Bld) [Interp]Ordered By: Delgado Amaro on 05-12-2024 Differential Comment COMMENT [facility] Comment on above: 1+ ANISO. Mean corpuscular hemoglobin (MCH) determinationOrdered By: Delgado Amaro on 05-12-2024 MCH (RBC) [Entitic mass] 23.8 pg Low 27.0-32.0 [facility] Mean corpuscular hemoglobin concentration (MCHC) determinationOrdered By: Delgado Amaro on 05-12-2024 MCHC (RBC) [Mass/Vol] 29.3 g/dL Low 32-36 [facility] Mean platelet volume determi nationOrdered By: Delgado Amaro on 05-12-2024 Platelet mean volume (Bld) [Entitic vol] 9.5 fL 6.2-12.0 [facility] Platelet countOrdered By: Kade Amaro on 05-12-2024 Platelets (Bld) [#/Vol] 164 10*3/uL 150-450 [facility] Potassium measurementOrdered By: Delgado Amaro on 05-12-2024 Potassium [Moles/Vol] 3.6 mmol/L 3.5-5.1 [facility] RBC Auto (Bld) [#/Vol]Ordere d By: Delgado Amaro on 05-12-2024 RBC (Bld) [#/Vol] 3.86 10*6/uL Low 4.2-5.4 [facility] Serum anion gap measurementO rdered By: Delgado Amaro on 05-12-2024 Anion gap [Moles/Vol] 7 mmol/L 5-15 [facility] Serum globulin measurementOr dered By: Delgado Amaro on 05-12-2024 Globulin (S) [Mass/Vol] 3.8 g/dL 2.2-4.2 [facility] Serum or plasma alanine sousa otransferase (ALT) measurementOrdered By: Delgado Amaro on 05-12-2024 ALT [Catalytic activity/Vol] 14 U/L 13-56 [facility] Serum or plasma albumin kay urement (mass/volume)Ordered By: Delgado Amaro on 05-12-2024 Albumin [Mass/Vol] 2.6 g/dL Low 3.2-5.0 [facility] Serum or plasma alkaline radha sphatase measurementOrdered By: Delgado Amaro on 05-12-2024 ALP [Catalytic activity/Vol] 109 U/L 45-117 [facility] Serum or plasma calcium kay urement (mass/volume)Ordered By: Delgado Amaro on 05-12-2024 Calcium [Mass/Vol] 9.0 mg/dL 8.5-10.1 [facility] Serum or plasma creatinine m easurement (mass/volume)Ordered By: Delgado Amaro on 05-12-2024 Creatinine [Mass/Vol] 1.13 mg/dL High 0.55-1.02 [facility] Comment on above: The validity of the calculated GFR & GFRAA in patients over 70 years has not been determined. Clinical correlation is essential. Serum or plasma urea nitroge n measurement (mass/volume)Ordered By: Delgado Amaro on 05-12-2024 Urea nitrogen [Mass/Vol] 30 mg/dL High 7-18 [facility] Sodium levelOrdered By: Dimitry Amaro on 05-12-2024 Sodium [Moles/Vol] 140 mmol/L 136-145 [facility] Total proteinOrdered By: Bill Amaro on 05-12-2024 Protein [Mass/Vol] 6.4 g/dL 6.4-8.2 [facility] Vitamin D,25 Hydroxyon 05-12 Vitamin D 25-OH 41.0 ng/mL Normal [facility] Comment on above: Result Comment: Ele min D 25(OH) Status Range Deficiency <20 ng/mL (50nmol/L) Insufficiency 20 - 30 ng/mL (50 - 75 nmol/L) Sufficiency 30 - 100 ng/mL (75 - 250 nmol/L) Toxicity >100 ng/mL (>250 nmol/L) Performed By: #### L 100.0500, L506.1000, L500.4050, L503.6620, L100.4500 ####[facility] [address] [place], [address] White blood cell (WBC) count Ordered By: Delgado Amaro on 05-12-2024 WBC (Bld) [#/Vol] 5.6 10*3/uL 4.4-11.0 [facility] Gastroenterology Visit Repor ton 04-28-2024 Gastroenterology Visit Report Normal [facility] CBC-Complete Blood Cnt No Di ffon 04-14-2024 Erythrocyte distribution width (RBC) [Ratio] 16.0 % High 11.6-14.6 [facility] Comment on above: Performed By: #### L 503.6075, L503.6150, L503.6550, L100.0500 ####[facility] [address] [place], [address] Hematocrit (Bld) [Volume fraction] 26.3 % Low 37-47 [facility] Comment on above: Performed By: #### L 503.6075, L503.6150, L503.6550, L100.0500 ####[facility] [address] [place], [address] Hemoglobin (Bld) [Mass/Vol] 7.7 g/dL Low 12.0-15.0 [facility] Comment on above: Performed By: #### L 503.6075, L503.6150, L503.6550, L100.0500 ####[facility] [address] [place], [address] MCH (RBC) [Entitic mass] 22.8 pg Low 27.0-32.0 [facility] Comment on above: Performed By: #### L 503.6075, L503.6150, L503.6550, L100.0500 ####[facility] [address] [place], [address] MCHC (RBC) [Mass/Vol] 29.3 g/dL Low 32-36 [facility] Comment on above: Performed By: #### L 503.6075, L503.6150, L503.6550, L100.0500 ####[facility] [address] [place], [address] MCV (RBC) [Entitic vol] 78.0 fL Low 81-99 [facility] Comment on above: Performed By: #### L 503.6075, L503.6150, L503.6550, L100.0500 ####[facility] [address] [place], [address] Platelet mean volume (Bld) [Entitic vol] 10.0 fL Normal 6.2-12.0 [facility] Comment on above: Performed By: #### L 503.6075, L503.6150, L503.6550, L100.0500 ####[facility] [address] [place], [address] Platelets (Bld) [#/Vol] 225 10*3/uL Normal 150-450 [facility] Comment on above: Performed By: #### L 503.6075, L503.6150, L503.6550, L100.0500 ####[facility] [address] [place], [address] RBC (Bld) [#/Vol] 3.37 10*6/uL Low 4.2-5.4 [facility] Comment on above: Performed By: #### L 503.6075, L503.6150, L503.6550, L100.0500 ####[facility] [address] [place], [address] RDW SD 45.4 fl High 35.1-43.9 [facility] Comment on above: Performed By: #### L 503.6075, L503.6150, L503.6550, L100.0500 ####[facility] [address] [place], [place], [address] WBC (Bld) [#/Vol] 7.3 10*3/uL Normal 4.4-11.0 [facility] Comment on above: Performed By: #### L 503.6075, L503.6150, L503.6550, L100.0500 ####[facility] [address] [place], [address] Erythrocyte distribution wid th ratioOrdered By: April Mullen on 04-14-2024 Erythrocyte distribution width (RBC) [Ratio] 16.0 % High 11.6-14.6 [facility] Erythrocyte distribution wid th standard deviationOrdered By: April Mullen on 04-14-2024 Erythrocyte distribution width (RBC) [Entitic vol] 45.4 fL High 35.1-43.9 [facility] Ferritinon 04-14-2024 Ferritin [Mass/Vol] 162 ng/mL Normal [facility] Comment on above: Order Comment: 503.2 Performed By: #### L 503.6075, L503.6150, L503.6550, L100.0500 ####[facility] [address] [place], [place], [address] Ferritin measurementOrdered By: April Mullen on 04-14-2024 Ferritin [Mass/Vol] 162 ng/mL [facility] Hematocrit Auto (Bld) [Volum e fraction]Ordered By: April Mullen on 04-14-2024 Hematocrit (Bld) [Volume fraction] 26.3 % Low 37-47 [facility] Hemoglobin measurementOrdere d By: April Mullen on 04-14-2024 Hemoglobin (Bld) [Mass/Vol] 7.7 g/dL Low 12.0-15.0 [facility] Ironon 01-06-2025 Iron [Mass/Vol] 17 ug/dL Low 50-170 [facility] Comment on above: Order Comment: 503.2 Performed By: #### L 503.6075, L503.6150, L503.6550, L100.0500 ####[facility] [address] [place], [address] Iron (Unsp spec) [Mass/Mass] Ordered By: April Mullen on 04-14-2024 Iron [Mass/Vol] 17 ug/dL Low 50-170 [facility] Iron Binding Capacity,Totalo n 04-14-2024 TIBC 286 ug/dL Normal 250-450 [facility] Comment on above: Order Comment: 503.2 Performed By: #### L 503.6075, L503.6150, L503.6550, L100.0500 ####[facility] [address] [place], [place], [id number]) MCV (mean corpuscular volume ) determinationOrdered By: April Mullen on 04-14-2024 MCV (RBC) [Entitic vol] 78.0 fL Low 81-99 [facility] Mean corpuscular hemoglobin (MCH) determinationOrdered By: April Mullen on 04-14-2024 MCH (RBC) [Entitic mass] 22.8 pg Low 27.0-32.0 [facility] Mean corpuscular hemoglobin concentration (MCHC) determinationOrdered By: April Mullen on 04-14-2024 MCHC (RBC) [Mass/Vol] 29.3 g/dL Low 32-36 [facility] Mean platelet volume determi nationOrdered By: April Mullen on 04-14-2024 Platelet mean volume (Bld) [Entitic vol] 10.0 fL 6.2-12.0 [facility] Platelet countOrdered By: Darvin Mullen on 04-14-2024 Platelets (Bld) [#/Vol] 225 10*3/uL 150-450 [facility] RBC Auto (Bld) [#/Vol]Ordere d By: April Mullen on 04-14-2024 RBC (Bld) [#/Vol] 3.37 10*6/uL Low 4.2-5.4 [facility] TIBCOrdered By: April Mullen on 04-14-2024 Total Iron Binding Capacity 286 ug/dL 250-450 [facility] White blood cell (WBC) count Ordered By: April Mullen on 04-14-2024 WBC (Bld) [#/Vol] 7.3 10*3/uL 4.4-11.0 [facility] Automated blood erythrocyte countOrdered By: April Mullen on 04-07-2024 RBC (Bld) [#/Vol] 3.28 10*6/uL Low 4.2-5.4 [facility] Comment on above: Order Comment: 503-2 Performed By: #### L 100.0500, BTS ####[facility] [address] [place], [place], [address] Automated blood hematocrit ( percentage)Ordered By: April Mullen on 04-07-2024 Hematocrit (Bld) [Volume fraction] 25.6 % Low 37-47 [facility] Comment on above: Order Comment: 503-2 Performed By: #### L 100.0500, BTS ####[facility] [address] [place], [place], [address] CBC-Complete Blood Cnt No Di ffon 04-07-2024 RDW SD 44.5 fl High 35.1-43.9 [facility] Comment on above: Order Comment: 503-2 Performed By: #### L 100.0500, BTS ####[facility] [address] [place], [place], [address] Erythrocyte distribution wid th ratioOrdered By: April Mullen on 04-07-2024 Erythrocyte distribution width (RBC) [Ratio] 15.7 % High 11.6-14.6 [facility] Comment on above: Order Comment: 503-2 Performed By: #### L 100.0500, BTS ####[facility] [address] [place], [address] Erythrocyte distribution wid th standard deviationOrdered By: April Mullen on 04-07-2024 Erythrocyte distribution width (RBC) [Entitic vol] 44.5 fL High 35.1-43.9 [facility] Hemoglobin measurementOrdere d By: April Mullen on 04-07-2024 Hemoglobin (Bld) [Mass/Vol] 7.5 g/dL Low 12.0-15.0 [facility] Comment on above: Order Comment: 503-2 Performed By: #### L 100.0500, BTS ####[facility] [address] [place], [address] MCV (mean corpuscular volume ) determinationOrdered By: April Mullen on 04-07-2024 MCV (RBC) [Entitic vol] 78.0 fL Low 81-99 [facility] Comment on above: Order Comment: 503-2 Performed By: #### L 100.0500, BTS ####[facility] [address] [place], [address] Mean corpuscular hemoglobin (MCH) determinationOrdered By: April Mullen on 04-07-2024 MCH (RBC) [Entitic mass] 22.9 pg Low 27.0-32.0 [facility] Comment on above: Order Comment: 503-2 Performed By: #### L 100.0500, BTS ####[facility] [address] [place], [address] Mean corpuscular hemoglobin concentration (MCHC) determinationOrdered By: April Mullen on 04-07-2024 MCHC (RBC) [Mass/Vol] 29.3 g/dL Low 32-36 [facility] Comment on above: Order Comment: 503-2 Performed By: #### L 100.0500, BTS ####[facility] [address] [place], [address] Mean platelet volume determi nationOrdered By: April Mullen on 04-07-2024 Platelet mean volume (Bld) [Entitic vol] 10.1 fL Normal 6.2-12.0 [facility] Comment on above: Order Comment: 503-2 Performed By: #### L 100.0500, BTS ####[facility] [address] [place], [address] Platelet countOrdered By: Darvin Mullen on 04-07-2024 Platelets (Bld) [#/Vol] 203 10*3/uL Normal 150-450 [facility] Comment on above: Order Comment: 503-2 Performed By: #### L 100.0500, BTS ####[facility] [address] [place], [address] Type AND Screenon 04-07-2024 Ab SCREEN GEL Negative Normal [facility] Comment on above: Order Comment: 503-2 A Performed By: #### L 100.0500, BTS ####[facility] [address] [place], [address] White blood cell (WBC) count Ordered By: April Mullen on 04-07-2024 WBC (Bld) [#/Vol] 6.7 10*3/uL Normal 4.4-11.0 [facility] Comment on above: Order Comment: 503-2 Performed By: #### L 100.0500, BTS ####[facility] [address] [place], [address] CBC-Complete Blood Cnt No Di ffon 04-03-2024 Erythrocyte distribution width (RBC) [Ratio] 15.7 % High 11.6-14.6 [facility] Comment on above: Order Comment: 503.2 Performed By: #### L 100.0500 ####[facility] [address] [place], [address] Hematocrit (Bld) [Volume fraction] 24.8 % Low 37-47 [facility] Comment on above: Order Comment: 503.2 Performed By: #### L 100.0500 ####[facility] [address] [place], [address] Hemoglobin (Bld) [Mass/Vol] 7.2 g/dL Low 12.0-15.0 [facility] Comment on above: Order Comment: 503.2 Performed By: #### L 100.0500 ####[facility] [address] [place], [address] MCH (RBC) [Entitic mass] 22.9 pg Low 27.0-32.0 [facility] Comment on above: Order Comment: 503.2 Performed By: #### L 100.0500 ####[facility] [address] [place], [address] MCHC (RBC) [Mass/Vol] 29.0 g/dL Low 32-36 [facility] Comment on above: Order Comment: 503.2 Performed By: #### L 100.0500 ####[facility] [address] [place], [address] MCV (RBC) [Entitic vol] 78.7 fL Low 81-99 [facility] Comment on above: Order Comment: 503.2 Performed By: #### L 100.0500 ####[facility] [address] [place], [address] Platelet mean volume (Bld) [Entitic vol] 9.8 fL Normal 6.2-12.0 [facility] Comment on above: Order Comment: 503.2 Performed By: #### L 100.0500 ####[facility] [address] [place], [address] Platelets (Bld) [#/Vol] 155 10*3/uL Normal 150-450 [facility] Comment on above: Order Comment: 503.2 Performed By: #### L 100.0500 ####[facility] [address] [place], [address] RBC (Bld) [#/Vol] 3.15 10*6/uL Low 4.2-5.4 [facility] Comment on above: Order Comment: 503.2 Performed By: #### L 100.0500 ####[facility] [address] [place], [address] RDW SD 44.7 fl High 35.1-43.9 [facility] Comment on above: Order Comment: 503.2 Performed By: #### L 100.0500 ####[facility] [address] [place], [address] WBC (Bld) [#/Vol] 5.9 10*3/uL Normal 4.4-11.0 [facility] Comment on above: Order Comment: 503.2 Performed By: #### L 100.0500 ####[facility] [address] [place], [address] Erythrocyte distribution wid th ratioOrdered By: April Mullen on 04-03-2024 Erythrocyte distribution width (RBC) [Ratio] 15.7 % High 11.6-14.6 [facility] Erythrocyte distribution wid th standard deviationOrdered By: April Mullen on 04-03-2024 Erythrocyte distribution width (RBC) [Entitic vol] 44.7 fL High 35.1-43.9 [facility] Hematocrit Auto (Bld) [Volum e fraction]Ordered By: April Mullen on 04-03-2024 Hematocrit (Bld) [Volume fraction] 24.8 % Low 37-47 [facility] Hemoglobin measurementOrdere d By: April Mullen on 04-03-2024 Hemoglobin (Bld) [Mass/Vol] 7.2 g/dL Low 12.0-15.0 [facility] MCV (mean corpuscular volume ) determinationOrdered By: April Mullen on 04-03-2024 MCV (RBC) [Entitic vol] 78.7 fL Low 81-99 [facility] Mean corpuscular hemoglobin (MCH) determinationOrdered By: April Mullen on 04-03-2024 MCH (RBC) [Entitic mass] 22.9 pg Low 27.0-32.0 [facility] Mean corpuscular hemoglobin concentration (MCHC) determinationOrdered By: April Mullen on 04-03-2024 MCHC (RBC) [Mass/Vol] 29.0 g/dL Low 32-36 [facility] Mean platelet volume determi nationOrdered By: April Mullen on 04-03-2024 Platelet mean volume (Bld) [Entitic vol] 9.8 fL 6.2-12.0 [facility] Platelet countOrdered By: Darvin Mullen on 04-03-2024 Platelets (Bld) [#/Vol] 155 10*3/uL 150-450 [facility] RBC Auto (Bld) [#/Vol]Ordere d By: April Mullen on 04-03-2024 RBC (Bld) [#/Vol] 3.15 10*6/uL Low 4.2-5.4 [facility] White blood cell (WBC) count Ordered By: April Mullen on 04-03-2024 WBC (Bld) [#/Vol] 5.9 10*3/uL 4.4-11.0 [facility] 12 Lead EKGon 03-28-2024 12 Lead EKG Normal [facility] Basic Metabolic Profile (BMP )on 03-28-2024 BUN/CRE 20.2 RATIO High 01-26 [facility] Comment on above: Order Comment: 503.2 Performed By: #### L 100.0500, L500.2500, L500.4100, L501.9985 ####[facility] [address] [place], [place], [id number] [place],Total 8.8 mg/dL Normal 8.5-10.1 [facility] Comment on above: Order Comment: 503.2 Performed By: #### L 100.0500, L500.2500, L500.4100, L501.9985 ####[facility] [address] [place], [address] Chloride [Moles/Vol] 104 mmol/L Normal 98-107 [facility] Comment on above: Order Comment: 503.2 Performed By: #### L 100.0500, L500.2500, L500.4100, L501.9985 ####[facility] [address] [place], [address] CO2 [Moles/Vol] 28.0 mmol/L Normal 21.0-32.0 [facility] Comment on above: Order Comment: 503.2 Performed By: #### L 100.0500, L500.2500, L500.4100, L501.9985 ####[facility] [address] [place], [address] Creatinine [Mass/Vol] 1.09 mg/dL High 0.55-1.02 [facility] Comment on above: Order Comment: 503.2 Result Comment: The validity of the calculated GFR GFRAA in patients over70 years has not been determined. Clinical correlation isessential. Performed By: #### L 100.0500, L500.2500, L500.4100, L501.9985 ####[facility] [address] [place], [address] EST GFR - AA 63 mL/min Normal >60 [facility] Comment on above: Order Comment: 503.2 Result Comment: Afri can [place] GFR Calc Performed By: #### L 100.0500, L500.2500, L500.4100, L501.9985 ####[facility] [address] [place], [address] GAP 5 Normal 5-15 [facility] Comment on above: Order Comment: 503.2 Performed By: #### L 100.0500, L500.2500, L500.4100, L501.9985 ####[facility] [address] [place], [address] GFR/1.73 sq M.predicted among non-blacks MDRD (S/P/Bld) [Vol rate/Area] 52 mL/min/{1.73_m2} Low >60 [facility] Comment on above: Order Comment: 503.2 Result Comment: Non- GFR Calc Performed By: #### L 100.0500, L500.2500, L500.4100, L501.9985 ####[facility] [address] [place], [address] Glucose [Mass/Vol] 112 mg/dL High 74-106 [facility] Comment on above: Order Comment: 503.2 Result Comment: Fast ing Glucose result from 100 to 125 mg/dLsuggests IMPAIRED HOMEOSTASIS per A.D.A. criteria. Performed By: #### L 100.0500, L500.2500, L500.4100, L501.9985 ####[facility] [address] [place], [address] Potassium [Moles/Vol] 3.9 mmol/L Normal 3.5-5.1 [facility] Comment on above: Order Comment: 503.2 Performed By: #### L 100.0500, L500.2500, L500.4100, L501.9985 ####[facility] [address] [place], [address] Sodium [Moles/Vol] 136 mmol/L Normal 136-145 [facility] Comment on above: Order Comment: 503.2 Performed By: #### L 100.0500, L500.2500, L500.4100, L501.9985 ####[facility] [address] [place], [address] Urea nitrogen [Mass/Vol] 22 mg/dL High 7-18 [facility] Comment on above: Order Comment: 503.2 Performed By: #### L 100.0500, L500.2500, L500.4100, L501.9985 ####[facility] [address] [place], [address] Bilirubin directOrdered By: Sujatha Hebert on 03-28-2024 Bilirubin.direct [Mass/Vol] 0.12 mg/dL 0.00-0.30 [facility] Bilirubin, totalOrdered By: Sujatha Hebert on 03-28-2024 Bilirubin [Mass/Vol] 0.20 mg/dL 0.20-1.00 [facility] Comment on above: For patients on eltr ombopag therapy, use of Dimension [place] TBIL is not recommended. Blood urea nitrogen (BUN)/cr eatinine ratioOrdered By: Dominic Lim on 03-28-2024 Urea nitrogen/Creatinine [Mass ratio] 20.2 mg/mg High 01-26 [facility] CBC-Complete Blood Cnt No Di ffon 03-28-2024 Erythrocyte distribution width (RBC) [Ratio] 15.9 % High 11.6-14.6 [facility] Comment on above: Order Comment: 503.2 Performed By: #### L 100.0500, L500.2500, L500.4100, L501.9985 ####[facility] [address] [place], [address] Hematocrit (Bld) [Volume fraction] 23.3 % Low 37-47 [facility] Comment on above: Order Comment: 503.2 Performed By: #### L 100.0500, L500.2500, L500.4100, L501.9985 ####[facility] [address] [place], [address] Hemoglobin (Bld) [Mass/Vol] 6.9 g/dL Low 12.0-15.0 [facility] Comment on above: Order Comment: 503.2 Performed By: #### L 100.0500, L500.2500, L500.4100, L501.9985 ####[facility] [address] [place], [address] MCH (RBC) [Entitic mass] 23.2 pg Low 27.0-32.0 [facility] Comment on above: Order Comment: 503.2 Performed By: #### L 100.0500, L500.2500, L500.4100, L501.9985 ####[facility] [address] [place], [address] MCHC (RBC) [Mass/Vol] 29.6 g/dL Low 32-36 [facility] Comment on above: Order Comment: 503.2 Performed By: #### L 100.0500, L500.2500, L500.4100, L501.9985 ####[facility] [address] [place], [address] MCV (RBC) [Entitic vol] 78.5 fL Low 81-99 [facility] Comment on above: Order Comment: 503.2 Performed By: #### L 100.0500, L500.2500, L500.4100, L501.9985 ####[facility] [address] [place], [address] Platelet mean volume (Bld) [Entitic vol] 9.7 fL Normal 6.2-12.0 [facility] Comment on above: Order Comment: 503.2 Performed By: #### L 100.0500, L500.2500, L500.4100, L501.9985 ####[facility] [address] [place], [address] Platelets (Bld) [#/Vol] 172 10*3/uL Normal 150-450 [facility] Comment on above: Order Comment: 503.2 Performed By: #### L 100.0500, L500.2500, L500.4100, L501.9985 ####[facility] [address] [place], [address] RBC (Bld) [#/Vol] 2.97 10*6/uL Low 4.2-5.4 [facility] Comment on above: Order Comment: 503.2 Performed By: #### L 100.0500, L500.2500, L500.4100, L501.9985 ####[facility] [address] [place], [address] RDW SD 45.1 fl High 35.1-43.9 [facility] Comment on above: Order Comment: 503.2 Performed By: #### L 100.0500, L500.2500, L500.4100, L501.9985 ####[facility] [address] [place], [address] WBC (Bld) [#/Vol] 5.4 10*3/uL Normal 4.4-11.0 [facility] Comment on above: Order Comment: 503.2 Performed By: #### L 100.0500, L500.2500, L500.4100, L501.9985 ####[facility] [address] [place], [address] Carbon dioxide measurementOr dered By: Dominic Lim on 03-28-2024 CO2 [Moles/Vol] 28.0 mmol/L 21.0-32.0 [facility] Chloride measurementOrdered By: Dominic Lim on 03-28-2024 Chloride [Moles/Vol] 104 mmol/L 98-107 [facility] Emergency Department Summary on 03-28-2024 Emergency Department Summary Normal [facility] Erythrocyte distribution wid th ratioOrdered By: Dominic Lim on 03-28-2024 Erythrocyte distribution width (RBC) [Ratio] 15.9 % High 11.6-14.6 [facility] Erythrocyte distribution wid th standard deviationOrdered By: Dominic Lim on 03-28-2024 Erythrocyte distribution width (RBC) [Entitic vol] 45.1 fL High 35.1-43.9 [facility] Estimated glomerular filtrat ion rate (GFR) AmericanOrdered By: Dominic Lim on 03-28-2024 Estimated GFR (MDRD) Amer 63 mL/min >60 [facility] Comment on above: GFR Calc Glomerular filtration rate ( GFR) estimationOrdered By: Dominic Lim on 03-28-2024 Estimated GFR (MDRD) Non-Af Amer 52 mL/min Low >60 [facility] Comment on above: Non- GFR Calc Glucose measurementOrdered B y: Dominic Lim on 03-28-2024 Glucose [Mass/Vol] 112 mg/dL High 74-106 [facility] Comment on above: Fasting Glucose resu lt from 100 to 125 mg/dL suggests IMPAIRED HOMEOSTASIS per A.D.A. criteria. HH, Hemoglobin AND Hematocri ton 03-28-2024 Hematocrit (Bld) [Volume fraction] 23.3 % Low 37-47 [facility] Comment on above: Performed By: #### L 100.0600 ####[facility] [address] [place], [address] Hemoglobin (Bld) [Mass/Vol] 7.1 g/dL Low 12.0-15.0 [facility] Comment on above: Performed By: #### L 100.0600 ####[facility] [address] [place], [address] Hematocrit (Bld) [Volume fraction] 25.0 % Low 3747 [facility] Comment on above: Performed By: #### L 100.0600, M100.7900, BTS ####[facility] [address] [place], [address] Hemoglobin (Bld) [Mass/Vol] 7.7 g/dL Low 12.0-15.0 [facility] Comment on above: Performed By: #### L 100.0600, M100.7900, BTS ####[facility] [address] [place], [address] Hematocrit Auto (Bld) [Volum e fraction]Ordered By: Sujatha Hebert on 03-28-2024 Hematocrit (Bld) [Volume fraction] 23.3 % Low 3747 [facility] Hematocrit Auto (Bld) [Volum e fraction]Ordered By: Dominic Lim on 12-20-2024 Hematocrit (Bld) [Volume fraction] 23.3 % Low 37-47 [facility] Hemoglobin A1con 03-28-2024 HbA1c (Bld) [Mass fraction] 5.6 % Normal 3.8-5.6 [facility] Comment on above: Order Comment: 503.2 Result Comment: Norm al < 5.7 % Prediabetic 5.7 - 6.4 % Diabetic >or= 6.5 % Please note range changes. Performed By: #### L 100.0500, L500.2500, L500.4100, L501.9985 ####[facility] [address] [place], [address] Hemoglobin A1c percentageOrd ered By: Dominic Lim on 03-28-2024 HbA1c (Bld) [Mass fraction] 5.6 % 3.8-5.6 [facility] Comment on above: Normal < 5.7 % Predi abetic 5.7 - 6.4 % Diabetic >or= 6.5 % Please note range changes. Hemoglobin measurementOrdere d By: Sujatha Hebert on 03-28-2024 Hemoglobin (Bld) [Mass/Vol] 7.1 g/dL Low 12.0-15.0 [facility] Hemoglobin measurementOrdere d By: Dominic Lim on 03-28-2024 Hemoglobin (Bld) [Mass/Vol] 6.9 g/dL Low 12.0-15.0 [facility] High density lipoprotein (HD L) measurementOrdered By: Dominic Lim on 03-28-2024 Cholesterol in HDL [Mass/Vol] 58 mg/dL >40 [facility] Comment on above: The drugs N-Acetylcy steine and Metamizole may falsely depress this assay. Reference Range HDL <40 mg/dL Low HDL Cholesterol HDL >or= 60 mg/dL High HDL Cholesterol L501.4020on 03-28-2024 TROPONIN-I HS 14 pg/mL Normal 3.0-54.0 [facility] Comment on above: Order Comment: 'TROP ' Serial specimen #1, #2 or #3: 1 Result Comment: Kalli torres Note: New Test Units and Gender Specific Reference Ranges. For more information see Policy Stat Procedure [place] High Sensitivity Troponin (TNIH) and attachments. Performed By: #### L 500.3400, L501.2450, L501.4020 ####[facility] [address] [place], [place], [id number] Laboratory - Chemistry and C hemistry - challengeOrdered By: Sujatha Hebert on 03-28-2024 AST [Catalytic activity/Vol] 14 U/L Low 15-37 [facility] Lipaseon 03-28-2024 Lipase [Catalytic activity/Vol] 18 U/L Normal 13-75 [facility] Comment on above: Order Comment: 'TROP ' Serial specimen #1, #2 or #3: 1 Result Comment: Plea se note:LIPASE revised reference range effective 22.New Lipase methodology. Expected to produce lower valuesthan the previous assay method.NEW Reference Range: 13 - 75 U/L Performed By: #### L 500.3400, L501.2450, L501.4020 ####[facility] [address] [place], [place], [id number] Lipase measurementOrdered By : Sujatha Hebert on 03-28-2024 Lipase [Catalytic activity/Vol] 18 U/L 13-75 [facility] Comment on above: Please note:LIPASE r evised reference range effective 22. New Lipase methodology. Expected to produce lower values than the previous assay method. NEW Reference Range: 13 - 75 U/L Lipid Profileon 03-28-2024 Cholesterol [Mass/Vol] 140 mg/dL Normal 200 [facility] Comment on above: Order Comment: 503.2 Result Comment: <200 mg/dL Desirable 200-240 mg/dL Borderline >240 mg/dL High Risk Performed By: #### L 100.0500, L500.2500, L500.4100, L501.9985 ####[facility] [address] [place], [place], [id number] Cholesterol in HDL [Mass/Vol] 58 mg/dL Normal [facility] Comment on above: Order Comment: 503.2 Result Comment: The drugs N-Acetylcysteine and Metamizole may falselydepress this assay. Reference Range HDL <40 mg/dL Low HDL Cholesterol HDL >or= 60 mg/dL High HDL Cholesterol Performed By: #### L 100.0500, L500.2500, L500.4100, L501.9985 ####[facility] [address] [place], [address] Cholesterol in LDL [Mass/Vol] 62 mg/dL Normal 0-130 [facility] Comment on above: Order Comment: 503.2 Performed By: #### L 100.0500, L500.2500, L500.4100, L501.9985 ####[facility] [address] [place], [address] Cholesterol in VLDL [Mass/Vol] 20 mg/dL Normal 5-40 [facility] Comment on above: Order Comment: 503.2 Performed By: #### L 100.0500, L500.2500, L500.4100, L501.9985 ####[facility] [address] [place], [address] Triglyceride [Mass/Vol] 98 mg/dL Normal [facility] Comment on above: Order Comment: 503.2 Result Comment: The drugs N-Acetylcysteine and Metamizole may falselydepress this assay.Serum Triglycerides Reference Interval Normal <150 mg/dL Borderline high 150 - 199 mg/dL High 200 - 499 mg/dL Very High > or = 500 mg/dL Performed By: #### L 100.0500, L500.2500, L500.4100, L501.9985 ####[facility] [address] [place], [address] Liver Profileon 03-28-2024 Albumin [Mass/Vol] 2.4 g/dL Low 3.2-5.0 [facility] Comment on above: Order Comment: 'TROP ' Serial specimen #1, #2 or #3: 1 Performed By: #### L 500.3400, L501.2450, L501.4020 ####[facility] [address] [place], [address] ALK P 126 U/L High 45-117 [facility] Comment on above: Order Comment: 'TROP ' Serial specimen #1, #2 or #3: 1 Performed By: #### L 500.3400, L501.2450, L501.4020 ####[facility] [address] [place], [address] ALT [Catalytic activity/Vol] 13 U/L Normal 13-56 [facility] Comment on above: Order Comment: 'TROP ' Serial specimen #1, #2 or #3: 1 Performed By: #### L 500.3400, L501.2450, L501.4020 ####[facility] [address] [place], [address] AST [Catalytic activity/Vol] 14 U/L Low 15-37 [facility] Comment on above: Order Comment: 'TROP ' Serial specimen #1, #2 or #3: 1 Performed By: #### L 500.3400, L501.2450, L501.4020 ####[facility] [address] [place], [address] Bilirubin [Mass/Vol] 0.20 mg/dL Normal 0.20-1.00 [facility] Comment on above: Order Comment: 'TROP ' Serial specimen #1, #2 or #3: 1 Result Comment: For patients on eltrombopag therapy, use of Dimension [place] TBIL is not recommended. Performed By: #### L 500.3400, L501.2450, L501.4020 ####[facility] [address] [place], [address] Bilirubin.direct [Mass/Vol] 0.12 mg/dL Normal 0.00-0.30 [facility] Comment on above: Order Comment: 'TROP ' Serial specimen #1, #2 or #3: 1 Performed By: #### L 500.3400, L501.2450, L501.4020 ####[facility] [address] [place], [address] Globulin (S) [Mass/Vol] 3.5 g/dL Normal 2.2-4.2 [facility] Comment on above: Order Comment: 'TROP ' Serial specimen #1, #2 or #3: 1 Performed By: #### L 500.3400, L501.2450, L501.4020 ####[facility] [address] [place], [address] T PROT 5.9 g/dL Low 6.4-8.2 [facility] Comment on above: Order Comment: 'TROP ' Serial specimen #1, #2 or #3: 1 Performed By: #### L 500.3400, L501.2450, L501.4020 ####[facility] [address] [place], [place], [id number] Low density lipoprotein (LDL ) cholesterol measurementOrdered By: Dominic Lim on 03-28-2024 Cholesterol in LDL [Mass/Vol] 62 mg/dL 0-130 [facility] Lower GI hemoglobin IA Ql (S tl)Ordered By: Sujatha Hebert on 03-28-2024 Stool Occult Blood (MOOSE) Positive Abnormal [facility] Stool Occult Blood (MOOSE) Positive Abnormal [facility] MCV (mean corpuscular volume ) determinationOrdered By: Dominic Lim on 03-28-2024 MCV (RBC) [Entitic vol] 78.5 fL Low 81-99 [facility] Mean corpuscular hemoglobin (MCH) determinationOrdered By: Dominic Lim on 03-28-2024 MCH (RBC) [Entitic mass] 23.2 pg Low 27.0-32.0 [facility] Mean corpuscular hemoglobin concentration (MCHC) determinationOrdered By: Dominic Lim on 03-28-2024 MCHC (RBC) [Mass/Vol] 29.6 g/dL Low 32-36 [facility] Mean platelet volume determi nationOrdered By: Dominic Lim on 03-28-2024 Platelet mean volume (Bld) [Entitic vol] 9.7 fL 6.2-12.0 [facility] Platelet countOrdered By: Fidelia Lim on 03-28-2024 Platelets (Bld) [#/Vol] 172 10*3/uL 150-450 [facility] Potassium measurementOrdered By: Dominic Lim on 03-28-2024 Potassium [Moles/Vol] 3.9 mmol/L 3.5-5.1 [facility] RBC Auto (Bld) [#/Vol]Ordere d By: Dominic Lim on 03-28-2024 RBC (Bld) [#/Vol] 2.97 10*6/uL Low 4.2-5.4 [facility] Serum anion gap measurementO rdered By: Dominic Lim on 03-28-2024 Anion gap [Moles/Vol] 5 mmol/L 5-15 [facility] Serum globulin measurementOr dered By: Sujatha Hebert on 03-28-2024 Globulin (S) [Mass/Vol] 3.5 g/dL 2.2-4.2 [facility] Serum or plasma alanine sousa otransferase (ALT) measurementOrdered By: Sujatha Hebert on 03-28-2024 ALT [Catalytic activity/Vol] 13 U/L 13-56 [facility] Serum or plasma albumin kay urement (mass/volume)Ordered By: Sujatha Hebert on 03-28-2024 Albumin [Mass/Vol] 2.4 g/dL Low 3.2-5.0 [facility] Serum or plasma alkaline radha sphatase measurementOrdered By: Sujatha Hebert on 03-28-2024 ALP [Catalytic activity/Vol] 126 U/L High 45-117 [facility] Serum or plasma calcium kay urement (mass/volume)Ordered By: Dominic Lim on 03-28-2024 Calcium [Mass/Vol] 8.8 mg/dL 8.5-10.1 [facility] Serum or plasma cholesterol measurement (mass/volume)Ordered By: Dominic Lim on 03-28-2024 Cholesterol [Mass/Vol] 140 mg/dL <200 [facility] Comment on above: <200 mg/dL Desirable 200-240 mg/dL Borderline >240 mg/dL High Risk Serum or plasma creatinine m easurement (mass/volume)Ordered By: Dominic Lim on 03-28-2024 Creatinine [Mass/Vol] 1.09 mg/dL High 0.55-1.02 [facility] Comment on above: The validity of the calculated GFR & GFRAA in patients over 70 years has not been determined. Clinical correlation is essential. Serum or plasma urea nitroge n measurement (mass/volume)Ordered By: Dominic Lim on 03-28-2024 Urea nitrogen [Mass/Vol] 22 mg/dL High 7-18 [facility] Sodium levelOrdered By: Dominic Lim on 03-28-2024 Sodium [Moles/Vol] 136 mmol/L 136-145 [facility] Stool Occult Blood iFOBon STOB Positive Normal [facility] Comment on above: Performed By: #### L 100.0600, M100.7900, BTS ####[facility] [address] [place], [place], [id number] Total proteinOrdered By: Emanuel Hebert on 03-28-2024 Protein [Mass/Vol] 5.9 g/dL Low 6.4-8.2 [facility] Triglycerides measurementOrd ered By: Dominic Lim on 03-28-2024 Triglyceride [Mass/Vol] 98 mg/dL <199 [facility] Comment on above: The drugs N-Acetylcy steine and Metamizole may falsely depress this assay.Serum Triglycerides Reference Interval Normal <150 mg/dL Borderline high 150 - 199 mg/dL High 200 - 499 mg/dL Very High > or = 500 mg/dL Troponin IOrdered By: Rica Hebert on 03-28-2024 Troponin I High Sensitivity 14 pg/mL 3.0-54.0 [facility] Comment on above: Please Note: New Lizeth t Units and Gender Specific Reference Ranges. For more information see Policy Stat Procedure [place] High Sensitivity Troponin (TNIH) and attachments. Type AND Screenon 03-28-2024 ABO and Rh group Nom (Bld) Blood group O Rh(D) positive Normal [facility] Comment on above: Order Comment: A Performed By: #### L 100.0600, M100.7900, BTS ####[facility] [address] [place], [address] Very low density lipoprotein (VLDL) cholesterol measurementOrdered By: Dominic Lim on 03-28-2024 VLDL Cholesterol 20 mg/dL 5-40 [facility] White blood cell (WBC) count Ordered By: Dominic Lim on 03-28-2024 WBC (Bld) [#/Vol] 5.4 10*3/uL 4.4-11.0 [facility] Basic Metabolic Profile (BMP )on 02-27-2024 BUN/CRE 21.2 RATIO High 01-26 [facility] Comment on above: Order Comment: 503.2 Performed By: #### L 100.0500, L500.2500 ####[facility] [address] [place], [address] CA,Total 8.6 mg/dL Normal 8.5-10.1 [facility] Comment on above: Order Comment: 503.2 Performed By: #### L 100.0500, L500.2500 ####[facility] [address] [place], [address] Chloride [Moles/Vol] 104 mmol/L Normal 98-107 [facility] Comment on above: Order Comment: 503.2 Performed By: #### L 100.0500, L500.2500 ####[facility] [address] [place], [address] CO2 [Moles/Vol] 28.0 mmol/L Normal 21.0-32.0 [facility] Comment on above: Order Comment: 503.2 Performed By: #### L 100.0500, L500.2500 ####[facility] [address] [place], [address] Creatinine [Mass/Vol] 1.13 mg/dL High 0.55-1.02 [facility] Comment on above: Order Comment: 503.2 Result Comment: The validity of the calculated GFR GFRAA in patients over70 years has not been determined. Clinical correlation isessential. Performed By: #### L 100.0500, L500.2500 ####[facility] [address] [place], [address] EST GFR - AA 60 mL/min Normal >60 [facility] Comment on above: Order Comment: 503.2 Result Comment: Afri can Niuean GFR Calc Performed By: #### L 100.0500, L500.2500 ####[facility] [address] [place], [address] GAP 7 Normal 5-15 [facility] Comment on above: Order Comment: 503.2 Performed By: #### L 100.0500, L500.2500 ####[facility] [address] [place], [address] GFR/1.73 sq M.predicted among non-blacks MDRD (S/P/Bld) [Vol rate/Area] 50 mL/min/{1.73_m2} Low >60 [facility] Comment on above: Order Comment: 503.2 Result Comment: Non- GFR Calc Performed By: #### L 100.0500, L500.2500 ####[facility] [address] [place], [address] Glucose [Mass/Vol] 106 mg/dL Normal 74-106 [facility] Comment on above: Order Comment: 503.2 Result Comment: Fast ing Glucose result from 100 to 125 mg/dLsuggests IMPAIRED HOMEOSTASIS per A.D.A. criteria. Performed By: #### L 100.0500, L500.2500 ####[facility] [address] [place], [address] Potassium [Moles/Vol] 3.9 mmol/L Normal 3.5-5.1 [facility] Comment on above: Order Comment: 503.2 Performed By: #### L 100.0500, L500.2500 ####[facility] [address] [place], [address] Sodium [Moles/Vol] 139 mmol/L Normal 136-145 [facility] Comment on above: Order Comment: 503.2 Performed By: #### L 100.0500, L500.2500 ####[facility] [address] [place], [address] Urea nitrogen [Mass/Vol] 24 mg/dL High 7-18 [facility] Comment on above: Order Comment: 503.2 Performed By: #### L 100.0500, L500.2500 ####[facility] [address] [place], [address] Blood urea nitrogen (BUN)/cr eatinine ratioOrdered By: Dominic Lim on 02-27-2024 Urea nitrogen/Creatinine [Mass ratio] 21.2 mg/mg High - [facility] CBC-Complete Blood Cnt No Di ffon 02-27-2024 Erythrocyte distribution width (RBC) [Ratio] 15.6 % High 11.6-14.6 [facility] Comment on above: Order Comment: 503.2 Performed By: #### L 100.0500, L500.2500 ####[facility] [address] [place], [address] Hematocrit (Bld) [Volume fraction] 26.7 % Low 37-47 [facility] Comment on above: Order Comment: 503.2 Performed By: #### L 100.0500, L500.2500 ####[facility] [address] [place], [address] Hemoglobin (Bld) [Mass/Vol] 7.8 g/dL Low 12.0-15.0 [facility] Comment on above: Order Comment: 503.2 Performed By: #### L 100.0500, L500.2500 ####[facility] [address] [place], [address] MCH (RBC) [Entitic mass] 23.9 pg Low 27.0-32.0 [facility] Comment on above: Order Comment: 503.2 Performed By: #### L 100.0500, L500.2500 ####[facility] [address] [place], [address] MCHC (RBC) [Mass/Vol] 29.2 g/dL Low 32-36 [facility] Comment on above: Order Comment: 503.2 Performed By: #### L 100.0500, L500.2500 ####[facility] [address] [place], [address] MCV (RBC) [Entitic vol] 81.7 fL Normal 81-99 [facility] Comment on above: Order Comment: 503.2 Performed By: #### L 100.0500, L500.2500 ####[facility] [address] [place], [address] Platelet mean volume (Bld) [Entitic vol] 9.7 fL Normal 6.2-12.0 [facility] Comment on above: Order Comment: 503.2 Performed By: #### L 100.0500, L500.2500 ####[facility] [address] [place], [address] Platelets (Bld) [#/Vol] 196 10*3/uL Normal 150-450 [facility] Comment on above: Order Comment: 503.2 Performed By: #### L 100.0500, L500.2500 ####[facility] [address] [place], [address] RBC (Bld) [#/Vol] 3.27 10*6/uL Low 4.2-5.4 [facility] Comment on above: Order Comment: 503.2 Performed By: #### L 100.0500, L500.2500 ####[facility] [address] [place], [address] RDW SD 46.1 fl High 35.1-43.9 [facility] Comment on above: Order Comment: 503.2 Performed By: #### L 100.0500, L500.2500 ####[facility] [address] [place], [address] WBC (Bld) [#/Vol] 6.3 10*3/uL Normal 4.4-11.0 [facility] Comment on above: Order Comment: 503.2 Performed By: #### L 100.0500, L500.2500 ####[facility] [address] [place], [address] Carbon dioxide measurementOr dered By: Dominic Lim on 02-27-2024 CO2 [Moles/Vol] 28.0 mmol/L 21.0-32.0 [facility] Chloride measurementOrdered By: Dominic Lim on 02-27-2024 Chloride [Moles/Vol] 104 mmol/L 98-107 [facility] Erythrocyte distribution wid th ratioOrdered By: Dominic Lim on 02-27-2024 Erythrocyte distribution width (RBC) [Ratio] 15.6 % High 11.6-14.6 [facility] Erythrocyte distribution wid th standard deviationOrdered By: Dominic Lim on 02-27-2024 Erythrocyte distribution width (RBC) [Entitic vol] 46.1 fL High 35.1-43.9 [facility] Estimated glomerular filtrat ion rate (GFR) AmericanOrdered By: Dominic Lim on 02-27-2024 Estimated GFR (MDRD) Amer 60 mL/min >60 [facility] Comment on above: GFR Calc Glomerular filtration rate ( GFR) estimationOrdered By: Dominic Lim on 02-27-2024 Estimated GFR (MDRD) Non-Af Amer 50 mL/min Low >60 [facility] Comment on above: Non- GFR Calc Glucose measurementOrdered B y: Dominic Lim on 02-27-2024 Glucose [Mass/Vol] 106 mg/dL 74-106 [facility] Comment on above: Fasting Glucose resu lt from 100 to 125 mg/dL suggests IMPAIRED HOMEOSTASIS per A.D.A. criteria. Hematocrit Auto (Bld) [Volum e fraction]Ordered By: Dominic Lim on 02-27-2024 Hematocrit (Bld) [Volume fraction] 26.7 % Low 37-47 [facility] Hemoglobin measurementOrdere d By: Dominic Lim on 02-27-2024 Hemoglobin (Bld) [Mass/Vol] 7.8 g/dL Low 12.0-15.0 [facility] MCV (mean corpuscular volume ) determinationOrdered By: Dominic Lim on 02-27-2024 MCV (RBC) [Entitic vol] 81.7 fL 81-99 [facility] Mean corpuscular hemoglobin (MCH) determinationOrdered By: Dominic Lim on 02-27-2024 MCH (RBC) [Entitic mass] 23.9 pg Low 27.0-32.0 [facility] Mean corpuscular hemoglobin concentration (MCHC) determinationOrdered By: Dominic Lim on 02-27-2024 MCHC (RBC) [Mass/Vol] 29.2 g/dL Low 32-36 [facility] Mean platelet volume determi nationOrdered By: Dominic Lim on 02-27-2024 Platelet mean volume (Bld) [Entitic vol] 9.7 fL 6.2-12.0 [facility] Platelet countOrdered By: Fdielia Lim on 02-27-2024 Platelets (Bld) [#/Vol] 196 10*3/uL 150-450 [facility] Potassium measurementOrdered By: Dominic Lim on 02-27-2024 Potassium [Moles/Vol] 3.9 mmol/L 3.5-5.1 [facility] RBC Auto (Bld) [#/Vol]Ordere d By: Dominic Lim on 02-27-2024 RBC (Bld) [#/Vol] 3.27 10*6/uL Low 4.2-5.4 [facility] Serum anion gap measurementO rdered By: Dominic Lim on 02-27-2024 Anion gap [Moles/Vol] 7 mmol/L 5-15 [facility] Serum or plasma calcium kay urement (mass/volume)Ordered By: Dominic Lim on 02-27-2024 Calcium [Mass/Vol] 8.6 mg/dL 8.5-10.1 [facility] Serum or plasma creatinine m easurement (mass/volume)Ordered By: Dominic Lim on 02-27-2024 Creatinine [Mass/Vol] 1.13 mg/dL High 0.55-1.02 [facility] Comment on above: The validity of the calculated GFR & GFRAA in patients over 70 years has not been determined. Clinical correlation is essential. Serum or plasma urea nitroge n measurement (mass/volume)Ordered By: Dominic Lim on 02-27-2024 Urea nitrogen [Mass/Vol] 24 mg/dL High 7-18 [facility] Sodium levelOrdered By: Dominic Lim on 02-27-2024 Sodium [Moles/Vol] 139 mmol/L 136-145 [facility] White blood cell (WBC) count Ordered By: Dominic Lim on 02-27-2024 WBC (Bld) [#/Vol] 6.3 10*3/uL 4.4-11.0 [facility] Basic Metabolic Profile (BMP )on 01-29-2024 BUN/CRE 33.3 RATIO High 01-26 [facility] Comment on above: Performed By: #### L 500.2500 ####[facility] [address], [address] [place],Total 8.1 mg/dL Low 8.5-10.1 [facility] Comment on above: Performed By: #### L 500.2500 ####[facility] [address], [address] Chloride [Moles/Vol] 102 mmol/L Normal 98-107 [facility] Comment on above: Performed By: #### L 500.2500 ####[facility] [address] [place], [address] CO2 [Moles/Vol] 33.0 mmol/L High 21.0-32.0 [facility] Comment on above: Performed By: #### L 500.2500 ####[facility] [address] [place], [address] Creatinine [Mass/Vol] 1.05 mg/dL High 0.55-1.02 [facility] Comment on above: Result Comment: The validity of the calculated GFR GFRAA in patients over70 years has not been determined. Clinical correlation isessential. Performed By: #### L 500.2500 ####[facility] [address] [place], [address] EST GFR - AA 66 mL/min Normal >60 [facility] Comment on above: Result Comment: Afri can Niuean GFR Calc Performed By: #### L 500.2500 ####[facility] [address] [place], [address] GAP 4 Low 5-15 [facility] Comment on above: Performed By: #### L 500.2500 ####[facility] [address] [place], [address] GFR/1.73 sq M.predicted among non-blacks MDRD (S/P/Bld) [Vol rate/Area] 54 mL/min/{1.73_m2} Low >60 [facility] Comment on above: Result Comment: Non- GFR Calc Performed By: #### L 500.2500 ####[facility] [address] [place], [address] Glucose [Mass/Vol] 101 mg/dL Normal 74-106 [facility] Comment on above: Result Comment: Fast ing Glucose result from 100 to 125 mg/dLsuggests IMPAIRED HOMEOSTASIS per A.D.A. criteria. Performed By: #### L 500.2500 ####[facility] [address] [place], [address] Potassium [Moles/Vol] 3.8 mmol/L Normal 3.5-5.1 [facility] Comment on above: Performed By: #### L 500.2500 ####[facility] [address] [place], [address] Sodium [Moles/Vol] 139 mmol/L Normal 136-145 [facility] Comment on above: Performed By: #### L 500.2500 ####[facility] [address] [place], [address] Urea nitrogen [Mass/Vol] 35 mg/dL High 7-18 [facility] Comment on above: Performed By: #### L 500.2500 ####[facility] [address] [place], [address] Basic Metabolic Profile (BMP )on 01-28-2024 BUN/CRE 30.8 RATIO High 10-20 [facility] Comment on above: Order Comment: 514.1 Performed By: #### L 501.8820, L500.2500, L101.9900, L100.0500 ####[facility] [address] [place], [address] CA,Total 8.3 mg/dL Low 8.5-10.1 [facility] Comment on above: Order Comment: 514.1 Performed By: #### L 501.8820, L500.2500, L101.9900, L100.0500 ####[facility] [address] [place], [address] Chloride [Moles/Vol] 101 mmol/L Normal 98-107 [facility] Comment on above: Order Comment: 514.1 Performed By: #### L 501.8820, L500.2500, L101.9900, L100.0500 ####[facility] [address] [place], [address] CO2 [Moles/Vol] 36.0 mmol/L High 21.0-32.0 [facility] Comment on above: Order Comment: 514.1 Performed By: #### L 501.8820, L500.2500, L101.9900, L100.0500 ####[facility] [address] [place], [address] Creatinine [Mass/Vol] 1.07 mg/dL High 0.55-1.02 [facility] Comment on above: Order Comment: 514.1 Result Comment: The validity of the calculated GFR GFRAA in patients over70 years has not been determined. Clinical correlation isessential. Performed By: #### L 501.8820, L500.2500, L101.9900, L100.0500 ####[facility] [address] [place], [address] EST GFR - AA 64 mL/min Normal >60 [facility] Comment on above: Order Comment: 514.1 Result Comment: Afri can Niuean GFR Calc Performed By: #### L 501.8820, L500.2500, L101.9900, L100.0500 ####[facility] [address] [place], [address] GAP 2 Low 5-15 [facility] Comment on above: Order Comment: 514.1 Performed By: #### L 501.8820, L500.2500, L101.9900, L100.0500 ####[facility] [address] [place], [address] GFR/1.73 sq M.predicted among non-blacks MDRD (S/P/Bld) [Vol rate/Area] 53 mL/min/{1.73_m2} Low >60 [facility] Comment on above: Order Comment: 514.1 Result Comment: Non- GFR Calc Performed By: #### L 501.8820, L500.2500, L101.9900, L100.0500 ####[facility] [address] [place], [address] Glucose [Mass/Vol] 111 mg/dL High 74-106 [facility] Comment on above: Order Comment: 514.1 Result Comment: Fast ing Glucose result from 100 to 125 mg/dLsuggests IMPAIRED HOMEOSTASIS per A.D.A. criteria. Performed By: #### L 501.8820, L500.2500, L101.9900, L100.0500 ####[facility] [address] [place], [address] Potassium [Moles/Vol] 3.8 mmol/L Normal 3.5-5.1 [facility] Comment on above: Order Comment: 514.1 Performed By: #### L 501.8820, L500.2500, L101.9900, L100.0500 ####[facility] [address] [place], [address] Sodium [Moles/Vol] 139 mmol/L Normal 136-145 [facility] Comment on above: Order Comment: 514.1 Performed By: #### L 501.8820, L500.2500, L101.9900, L100.0500 ####[facility] [address] [place], [address] Urea nitrogen [Mass/Vol] 33 mg/dL High 7-18 [facility] Comment on above: Order Comment: 514.1 Performed By: #### L 501.8820, L500.2500, L101.9900, L100.0500 ####[facility] [address] [place], [address] CBC-Complete Blood Cnt No Di ffon 01-28-2024 Erythrocyte distribution width (RBC) [Ratio] 17.2 % High 11.6-14.6 [facility] Comment on above: Order Comment: 514.1 Performed By: #### L 501.8820, L500.2500, L101.9900, L100.0500 ####[facility] [address] [place], [address] Hematocrit (Bld) [Volume fraction] 27.9 % Low 37-47 [facility] Comment on above: Order Comment: 514.1 Performed By: #### L 501.8820, L500.2500, L101.9900, L100.0500 ####[facility] [address] [place], [address] Hemoglobin (Bld) [Mass/Vol] 8.4 g/dL Low 12.0-15.0 [facility] Comment on above: Order Comment: 514.1 Performed By: #### L 501.8820, L500.2500, L101.9900, L100.0500 ####[facility] [address] [place], [address] MCH (RBC) [Entitic mass] 25.5 pg Low 27.0-32.0 [facility] Comment on above: Order Comment: 514.1 Performed By: #### L 501.8820, L500.2500, L101.9900, L100.0500 ####[facility] [address] [place], [address] MCHC (RBC) [Mass/Vol] 30.1 g/dL Low 32-36 [facility] Comment on above: Order Comment: 514.1 Performed By: #### L 501.8820, L500.2500, L101.9900, L100.0500 ####[facility] [address] [place], [address] MCV (RBC) [Entitic vol] 84.8 fL Normal 81-99 [facility] Comment on above: Order Comment: 514.1 Performed By: #### L 501.8820, L500.2500, L101.9900, L100.0500 ####[facility] [address] [place], [address] Platelet mean volume (Bld) [Entitic vol] 9.2 fL Normal 6.2-12.0 [facility] Comment on above: Order Comment: 514.1 Performed By: #### L 501.8820, L500.2500, L101.9900, L100.0500 ####[facility] [address] [place], [address] Platelets (Bld) [#/Vol] 316 10*3/uL Normal 150-450 [facility] Comment on above: Order Comment: 514.1 Performed By: #### L 501.8820, L500.2500, L101.9900, L100.0500 ####[facility] [address] [place], [address] RBC (Bld) [#/Vol] 3.29 10*6/uL Low 4.2-5.4 [facility] Comment on above: Order Comment: 514.1 Performed By: #### L 501.8820, L500.2500, L101.9900, L100.0500 ####[facility] [address] [place], [address] RDW SD 53.3 fl High 35.1-43.9 [facility] Comment on above: Order Comment: 514.1 Performed By: #### L 501.8820, L500.2500, L101.9900, L100.0500 ####[facility] [address] [place], [address] WBC (Bld) [#/Vol] 9.4 10*3/uL Normal 4.4-11.0 [facility] Comment on above: Order Comment: 514.1 Performed By: #### L 501.8820, L500.2500, L101.9900, L100.0500 ####[facility] [address] [place], [address] Erythrocyte Sed Rateon 01-27 SED RATE 33 mm/hr High 0-30 [facility] Comment on above: Order Comment: 514.1 Performed By: #### L 501.8820, L500.2500, L101.9900, L100.0500 ####[facility] [address] [place], [address] Vancomycin, Trough Levelon 1 VANCO, TROUGH 4.1 ug/mL Low 5.0-15.0 [facility] Comment on above: Order Comment: 514.1 0500 Result Comment: VANC OMYCIN STANDARED DRUG THERAPY TROUGH LEVEL: 5.0 - 15.0 mg/LVANCOMYCIN HIGH INTENSITY THERAPY TROUGH LEVEL: 15.0 - 20.0 mg/LHigh Intensity therapy recommended for serious lifethreatening infections include:- Bmxyvrdzyp-Ccigmkoxnopf-Owjaexrbh (Ventilator/Healtcare Associated)-SepsisPLEASE CONTACT PHARMACY SERVICES (#8651) FOR INTERPRETATIONOF RESULTS. Performed By: #### L 501.8820, L500.2500, L101.9900, L100.0500 ####[facility] [address], [address] L5000.0010on 01-26-2024 BNP Normal [facility] Comment on above: Result Comment: TEST RESULTS LIMITSB-Type Natriuretic Peptide 443.4 High pg/mL 0.0-100.0 [employer]ens ADVIA Centaur XP methodology TESTING PERFORMED AT [facility]. ORIGINAL REPORT ON FILE IN LAB CONTAINS ADDITIONAL TEST SITE INFORMATION. Performed By: #### L 101.9900, L100.0500, L500.2500, L5000.0010 ####[facility] [address], [address] Basic Metabolic Profile (BMP )on 01-21-2024 BUN/CRE 34.1 RATIO High 01-26 [facility] Comment on above: Order Comment: 514.1 Performed By: #### L 101.9900, L100.0500, L500.2500, L5000.0010 ####[facility] [address] [place], [address] CA,Total 8.0 mg/dL Low 8.5-10.1 [facility] Comment on above: Order Comment: 514.1 Performed By: #### L 101.9900, L100.0500, L500.2500, L5000.0010 ####[facility] [address] [place], [address] Chloride [Moles/Vol] 105 mmol/L Normal 98-107 [facility] Comment on above: Order Comment: 514.1 Performed By: #### L 101.9900, L100.0500, L500.2500, L5000.0010 ####[facility] [address] [place], [address] CO2 [Moles/Vol] 31.0 mmol/L Normal 21.0-32.0 [facility] Comment on above: Order Comment: 514.1 Performed By: #### L 101.9900, L100.0500, L500.2500, L5000.0010 ####[facility] [address] [place], [address] Creatinine [Mass/Vol] 1.00 mg/dL Normal 0.55-1.02 [facility] Comment on above: Order Comment: 514.1 Result Comment: The validity of the calculated GFR GFRAA in patients over70 years has not been determined. Clinical correlation isessential. Performed By: #### L 101.9900, L100.0500, L500.2500, L5000.0010 ####[facility] [address] [place], [address] EST GFR - AA 70 mL/min Normal >60 [facility] Comment on above: Order Comment: 514.1 Result Comment: Afri can Niuean GFR Calc Performed By: #### L 101.9900, L100.0500, L500.2500, L5000.0010 ####[facility] [address] [place], [address] GAP 4 Low 5-15 [facility] Comment on above: Order Comment: 514.1 Performed By: #### L 101.9900, L100.0500, L500.2500, L5000.0010 ####[facility] [address] [place], [address] GFR/1.73 sq M.predicted among non-blacks MDRD (S/P/Bld) [Vol rate/Area] 58 mL/min/{1.73_m2} Low >60 [facility] Comment on above: Order Comment: 514.1 Result Comment: Non- GFR Calc Performed By: #### L 101.9900, L100.0500, L500.2500, L5000.0010 ####[facility] [address] [place], [address] Glucose [Mass/Vol] 98 mg/dL Normal 74-106 [facility] Comment on above: Order Comment: 514.1 Performed By: #### L 101.9900, L100.0500, L500.2500, L5000.0010 ####[facility] [address] [place], [address] Potassium [Moles/Vol] 4.4 mmol/L Normal 3.5-5.1 [facility] Comment on above: Order Comment: 514.1 Performed By: #### L 101.9900, L100.0500, L500.2500, L5000.0010 ####[facility] [address] [place], [address] Sodium [Moles/Vol] 140 mmol/L Normal 136-145 [facility] Comment on above: Order Comment: 514.1 Performed By: #### L 101.9900, L100.0500, L500.2500, L5000.0010 ####[facility] [address] [place], [address] Urea nitrogen [Mass/Vol] 34 mg/dL High 7-18 [facility] Comment on above: Order Comment: 514.1 Performed By: #### L 101.9900, L100.0500, L500.2500, L5000.0010 ####[facility] [address] [place], [address] CBC-Complete Blood Cnt No Di ffon 01-21-2024 Erythrocyte distribution width (RBC) [Ratio] 17.9 % High 11.6-14.6 [facility] Comment on above: Order Comment: 514.1 Performed By: #### L 101.9900, L100.0500, L500.2500, L5000.0010 ####[facility] [address] [place], [address] Hematocrit (Bld) [Volume fraction] 26.9 % Low 37-47 [facility] Comment on above: Order Comment: 514.1 Performed By: #### L 101.9900, L100.0500, L500.2500, L5000.0010 ####[facility] [address] [place], [address] Hemoglobin (Bld) [Mass/Vol] 8.1 g/dL Low 12.0-15.0 [facility] Comment on above: Order Comment: 514.1 Performed By: #### L 101.9900, L100.0500, L500.2500, L5000.0010 ####[facility] [address] [place], [address] MCH (RBC) [Entitic mass] 25.7 pg Low 27.0-32.0 [facility] Comment on above: Order Comment: 514.1 Performed By: #### L 101.9900, L100.0500, L500.2500, L5000.0010 ####[facility] [address] [place], [address] MCHC (RBC) [Mass/Vol] 30.1 g/dL Low 32-36 [facility] Comment on above: Order Comment: 514.1 Performed By: #### L 101.9900, L100.0500, L500.2500, L5000.0010 ####[facility] [address] [place], [address] MCV (RBC) [Entitic vol] 85.4 fL Normal 81-99 [facility] Comment on above: Order Comment: 514.1 Performed By: #### L 101.9900, L100.0500, L500.2500, L5000.0010 ####[facility] [address] [place], [address] Platelet mean volume (Bld) [Entitic vol] 9.9 fL Normal 6.2-12.0 [facility] Comment on above: Order Comment: 514.1 Performed By: #### L 101.9900, L100.0500, L500.2500, L5000.0010 ####[facility] [address] [place], [address] Platelets (Bld) [#/Vol] 180 10*3/uL Normal 150-450 [facility] Comment on above: Order Comment: 514.1 Performed By: #### L 101.9900, L100.0500, L500.2500, L5000.0010 ####[facility] [address] [place], [address] RBC (Bld) [#/Vol] 3.15 10*6/uL Low 4.2-5.4 [facility] Comment on above: Order Comment: 514.1 Performed By: #### L 101.9900, L100.0500, L500.2500, L5000.0010 ####[facility] [address] [place], [address] RDW SD 55.3 fl High 35.1-43.9 [facility] Comment on above: Order Comment: 514.1 Performed By: #### L 101.9900, L100.0500, L500.2500, L5000.0010 ####[facility] [address] [place], [address] WBC (Bld) [#/Vol] 9.5 10*3/uL Normal 4.4-11.0 [facility] Comment on above: Order Comment: 514.1 Performed By: #### L 101.9900, L100.0500, L500.2500, L5000.0010 ####[facility] [address] [place], [address] Erythrocyte Sed Rateon 01-20 SED RATE 21 mm/hr Normal 0-30 [facility] Comment on above: Order Comment: 514.1 Performed By: #### L 101.9900, L100.0500, L500.2500, L5000.0010 ####[facility] [address] [place], [address] CRPon 01-16-2024 C-REACTIVE PROT 91.00 mg/L High 0.0-3.0 [facility] Comment on above: Order Comment: 514-1 Result Comment: C-Re active Protein (CRP) provides useful information for thediagnosis, therapy and monitoring of inflammatory processesand associated diseases. For the evaluation of Relative Riskfor Cardiovascular Disease, a High Sensitivity CRP (HSCRP)should be ordered. Performed By: #### L 501.6710 ####[facility] [address] [place], [address] Basic Metabolic Profile (BMP )on 01-14-2024 BUN/CRE 29.6 RATIO High 10-20 [facility] Comment on above: Order Comment: 514-1 Performed By: #### L 101.9900, L100.0500, L500.2500, L501.8820 ####[facility] [address] [place], [address] CA,Total 7.4 mg/dL Low 8.5-10.1 [facility] Comment on above: Order Comment: 514-1 Performed By: #### L 101.9900, L100.0500, L500.2500, L501.8820 ####[facility] [address] [place], [address] Chloride [Moles/Vol] 105 mmol/L Normal 98-107 [facility] Comment on above: Order Comment: 514-1 Performed By: #### L 101.9900, L100.0500, L500.2500, L501.8820 ####[facility] [address] [place], [address] CO2 [Moles/Vol] 29.0 mmol/L Normal 21.0-32.0 [facility] Comment on above: Order Comment: 514-1 Performed By: #### L 101.9900, L100.0500, L500.2500, L501.8820 ####[facility] [address] [place], [address] Creatinine [Mass/Vol] 0.98 mg/dL Normal 0.55-1.02 [facility] Comment on above: Order Comment: 514-1 Result Comment: The validity of the calculated GFR GFRAA in patients over70 years has not been determined. Clinical correlation isessential. Performed By: #### L 101.9900, L100.0500, L500.2500, L501.8820 ####[facility] [address] [place], [address] EST GFR - AA 71 mL/min Normal >60 [facility] Comment on above: Order Comment: 514-1 Result Comment: Afri can Niuean GFR Calc Performed By: #### L 101.9900, L100.0500, L500.2500, L501.8820 ####[facility] [address] [place], [address] GAP 9 Normal 5-15 [facility] Comment on above: Order Comment: 514-1 Performed By: #### L 101.9900, L100.0500, L500.2500, L501.8820 ####[facility] [address] [place], [address] GFR/1.73 sq M.predicted among non-blacks MDRD (S/P/Bld) [Vol rate/Area] 59 mL/min/{1.73_m2} Low >60 [facility] Comment on above: Order Comment: 514-1 Result Comment: Non- GFR Calc Performed By: #### L 101.9900, L100.0500, L500.2500, L501.8820 ####[facility] [address] [place], [address] Glucose [Mass/Vol] 74 mg/dL Normal 74-106 [facility] Comment on above: Order Comment: 514-1 Performed By: #### L 101.9900, L100.0500, L500.2500, L501.8820 ####[facility] [address] [place], [address] Potassium [Moles/Vol] 3.4 mmol/L Low 3.5-5.1 [facility] Comment on above: Order Comment: 514-1 Performed By: #### L 101.9900, L100.0500, L500.2500, L501.8820 ####[facility] [address] [place], [address] Sodium [Moles/Vol] 143 mmol/L Normal 136-145 [facility] Comment on above: Order Comment: 514-1 Performed By: #### L 101.9900, L100.0500, L500.2500, L501.8820 ####[facility] [address] [place], [address] Urea nitrogen [Mass/Vol] 29 mg/dL High 7-18 [facility] Comment on above: Order Comment: 514-1 Performed By: #### L 101.9900, L100.0500, L500.2500, L501.8820 ####[facility] [address] [place], [address] CBC-Complete Blood Cnt No Di ffon 01-14-2024 Erythrocyte distribution width (RBC) [Ratio] 17.5 % High 11.6-14.6 [facility] Comment on above: Order Comment: 514-1 Performed By: #### L 101.9900, L100.0500, L500.2500, L501.8820 ####[facility] [address] [place], [address] Hematocrit (Bld) [Volume fraction] 25.2 % Low 37-47 [facility] Comment on above: Order Comment: 514-1 Performed By: #### L 101.9900, L100.0500, L500.2500, L501.8820 ####[facility] [address] [place], [address] Hemoglobin (Bld) [Mass/Vol] 7.7 g/dL Low 12.0-15.0 [facility] Comment on above: Order Comment: 514-1 Performed By: #### L 101.9900, L100.0500, L500.2500, L501.8820 ####[facility] [address] [place], [address] MCH (RBC) [Entitic mass] 26.1 pg Low 27.0-32.0 [facility] Comment on above: Order Comment: 514-1 Performed By: #### L 101.9900, L100.0500, L500.2500, L501.8820 ####[facility] [address] [place], [address] MCHC (RBC) [Mass/Vol] 30.6 g/dL Low 32-36 [facility] Comment on above: Order Comment: 514-1 Performed By: #### L 101.9900, L100.0500, L500.2500, L501.8820 ####[facility] [address] [place], [address] MCV (RBC) [Entitic vol] 85.4 fL Normal 81-99 [facility] Comment on above: Order Comment: 514-1 Performed By: #### L 101.9900, L100.0500, L500.2500, L501.8820 ####[facility] [address] [place], [address] Platelet mean volume (Bld) [Entitic vol] 11.0 fL Normal 6.2-12.0 [facility] Comment on above: Order Comment: 514-1 Performed By: #### L 101.9900, L100.0500, L500.2500, L501.8820 ####[facility] [address] [place], [address] Platelets (Bld) [#/Vol] 162 10*3/uL Normal 150-450 [facility] Comment on above: Order Comment: 514-1 Performed By: #### L 101.9900, L100.0500, L500.2500, L501.8820 ####[facility] [address] [place], [address] RBC (Bld) [#/Vol] 2.95 10*6/uL Low 4.2-5.4 [facility] Comment on above: Order Comment: 514-1 Performed By: #### L 101.9900, L100.0500, L500.2500, L501.8820 ####[facility] [address] [place], [address] RDW SD 54.9 fl High 35.1-43.9 [facility] Comment on above: Order Comment: 514-1 Performed By: #### L 101.9900, L100.0500, L500.2500, L501.8820 ####[facility] [address] [place], [address] WBC (Bld) [#/Vol] 8.0 10*3/uL Normal 4.4-11.0 [facility] Comment on above: Order Comment: 514-1 Performed By: #### L 101.9900, L100.0500, L500.2500, L501.8820 ####[facility] [address] [place], [address] Erythrocyte Sed Rateon 01-13 SED RATE 12 mm/hr Normal 0-30 [facility] Comment on above: Order Comment: 514 Performed By: #### L 101.9900, L100.0500, L500.2500, L501.8820 ####[facility] [address] [place], [address] Vancomycin, Trough Levelon 1 VANCO, TROUGH 30.8 ug/mL High 5.0-15.0 [facility] Comment on above: Order Comment: 0800 Result Comment: VANC OMYCIN STANDARED DRUG THERAPY TROUGH LEVEL: 5.0 - 15.0 mg/LVANCOMYCIN HIGH INTENSITY THERAPY TROUGH LEVEL: 15.0 - 20.0 mg/LHigh Intensity therapy recommended for serious lifethreatening infections include:- Uniuldakmr-Vxeqleithxdh-Pncxrgprw (Ventilator/Healtcare Associated)-SepsisPLEASE CONTACT PHARMACY SERVICES (#3891) FOR INTERPRETATIONOF RESULTS. Performed By: #### L 101.9900, L100.0500, L500.2500, L501.8820 ####[facility] [address] [place], [address] Basic Metabolic Profile (BMP )on 01-09-2024 BUN/CRE 29.8 RATIO High 10-20 [facility] Comment on above: Order Comment: 105.1 Performed By: #### L 100.0500, L500.2500 ####[facility] [address] [place], [address] CA,Total 8.3 mg/dL Low 8.5-10.1 [facility] Comment on above: Order Comment: 105.1 Performed By: #### L 100.0500, L500.2500 ####[facility] [address] [place], [address] Chloride [Moles/Vol] 100 mmol/L Normal 98-107 [facility] Comment on above: Order Comment: 105.1 Performed By: #### L 100.0500, L500.2500 ####[facility] [address] [place], [address] CO2 [Moles/Vol] 37.0 mmol/L High 21.0-32.0 [facility] Comment on above: Order Comment: 105.1 Performed By: #### L 100.0500, L500.2500 ####[facility] [address] [place], [address] Creatinine [Mass/Vol] 1.24 mg/dL High 0.55-1.02 [facility] Comment on above: Order Comment: 105.1 Result Comment: The validity of the calculated GFR GFRAA in patients over70 years has not been determined. Clinical correlation isessential. Performed By: #### L 100.0500, L500.2500 ####[facility] [address] [place], [address] EST GFR - AA 54 mL/min Low >60 [facility] Comment on above: Order Comment: 105.1 Result Comment: Afri can Niuean GFR Calc Performed By: #### L 100.0500, L500.2500 ####[facility] [address] [place], [address] GAP 4 Low 5-15 [facility] Comment on above: Order Comment: 105.1 Performed By: #### L 100.0500, L500.2500 ####[facility] [address] [place], [address] GFR/1.73 sq M.predicted among non-blacks MDRD (S/P/Bld) [Vol rate/Area] 45 mL/min/{1.73_m2} Low >60 [facility] Comment on above: Order Comment: 105.1 Result Comment: Non- GFR Calc Performed By: #### L 100.0500, L500.2500 ####[facility] [address] [place], [address] Glucose [Mass/Vol] 193 mg/dL High 74-106 [facility] Comment on above: Order Comment: 105.1 Result Comment: Fast ing Glucose result greater than or equal to 126 mg/dLsuggests DIABETES MELLITUS per A.D.A. criteria. Performed By: #### L 100.0500, L500.2500 ####[facility] [address] [place], [address] Potassium [Moles/Vol] 3.4 mmol/L Low 3.5-5.1 [facility] Comment on above: Order Comment: 105.1 Result Comment: Slig ht Hemolysis, Result may be falsely increased. Performed By: #### L 100.0500, L500.2500 ####[facility] [address] [place], [address] Sodium [Moles/Vol] 141 mmol/L Normal 136-145 [facility] Comment on above: Order Comment: 105.1 Performed By: #### L 100.0500, L500.2500 ####[facility] [address] [place], [address] Urea nitrogen [Mass/Vol] 37 mg/dL High 7-18 [facility] Comment on above: Order Comment: 105.1 Performed By: #### L 100.0500, L500.2500 ####[facility] [address] [place], [address] BUN Normal 7-18 [facility] Comment on above: Result Comment: Canc elled via OM: Order cancelled - Patient discharged Performed By: #### L 500.2500 ####[facility] [address] [place], [address] BUN/CRE Normal 10-20 [facility] Comment on above: Result Comment: Canc elled via OM: Order cancelled - Patient discharged Performed By: #### L 500.2500 ####[facility] [address] [place], [address] CA,Total Normal 8.5-10.1 [facility] Comment on above: Result Comment: Canc elled via OM: Order cancelled - Patient discharged Performed By: #### L 500.2500 ####[facility] [address] [place], [address] CL Normal 98-107 [facility] Comment on above: Result Comment: Canc elled via OM: Order cancelled - Patient discharged Performed By: #### L 500.2500 ####[facility] [address] [place], [address] CO2 Normal 21.0-32.0 [facility] Comment on above: Result Comment: Canc elled via OM: Order cancelled - Patient discharged Performed By: #### L 500.2500 ####[facility] [address] [place], [address] CREAT,SERUM Normal 0.55-1.02 [facility] Comment on above: Result Comment: Canc elled via OM: Order cancelled - Patient discharged Performed By: #### L 500.2500 ####[facility] [address] [place], [address] EST GFR Normal >60 [facility] Comment on above: Result Comment: Canc elled via OM: Order cancelled - Patient discharged Performed By: #### L 500.2500 ####[facility] [address] [place], [address] EST GFR - AA Normal >60 [facility] Comment on above: Result Comment: Canc elled via OM: Order cancelled - Patient discharged Performed By: #### L 500.2500 ####[facility] [address] [place], [address] GAP Normal 5-15 [facility] Comment on above: Result Comment: Canc elled via OM: Order cancelled - Patient discharged Performed By: #### L 500.2500 ####[facility] [address] [place], [address] GLU Normal 74-106 [facility] Comment on above: Result Comment: Canc elled via OM: Order cancelled - Patient discharged Performed By: #### L 500.2500 ####[facility] [address] [place], [address] Potassium Normal 3.5-5.1 [facility] Comment on above: Result Comment: Canc elled via OM: Order cancelled - Patient discharged Performed By: #### L 500.2500 ####[facility] [address] [place], [address] Basic Metabolic Profile (BMP) Normal 136-145 [facility] Comment on above: Result Comment: Canc elled via OM: Order cancelled - Patient discharged Performed By: #### L 500.2500 ####[facility] [address] [place], [address] CBC-Complete Blood Cnt No Di ffon 01-09-2024 Erythrocyte distribution width (RBC) [Ratio] 17.6 % High 11.6-14.6 [facility] Comment on above: Order Comment: 105.1 Performed By: #### L 100.0500, L500.2500 ####[facility] [address] [place], [address] Hematocrit (Bld) [Volume fraction] 32.6 % Low 37-47 [facility] Comment on above: Order Comment: 105.1 Performed By: #### L 100.0500, L500.2500 ####[facility] [address] [place], [address] Hemoglobin (Bld) [Mass/Vol] 9.7 g/dL Low 12.0-15.0 [facility] Comment on above: Order Comment: 105.1 Performed By: #### L 100.0500, L500.2500 ####[facility] [address] [place], [address] MCH (RBC) [Entitic mass] 25.7 pg Low 27.0-32.0 [facility] Comment on above: Order Comment: 105.1 Performed By: #### L 100.0500, L500.2500 ####[facility] [address] [place], [address] MCHC (RBC) [Mass/Vol] 29.8 g/dL Low 32-36 [facility] Comment on above: Order Comment: 105.1 Performed By: #### L 100.0500, L500.2500 ####[facility] [address] [place], [address] MCV (RBC) [Entitic vol] 86.2 fL Normal 81-99 [facility] Comment on above: Order Comment: 105.1 Performed By: #### L 100.0500, L500.2500 ####[facility] [address] [place], [address] Platelet mean volume (Bld) [Entitic vol] 10.5 fL Normal 6.2-12.0 [facility] Comment on above: Order Comment: 105.1 Performed By: #### L 100.0500, L500.2500 ####[facility] [address] [place], [address] Platelets (Bld) [#/Vol] 243 10*3/uL Normal 150-450 [facility] Comment on above: Order Comment: 105.1 Performed By: #### L 100.0500, L500.2500 ####[facility] [address] [place], [address] RBC (Bld) [#/Vol] 3.78 10*6/uL Low 4.2-5.4 [facility] Comment on above: Order Comment: 105.1 Performed By: #### L 100.0500, L500.2500 ####[facility] [address] [place], [address] RDW SD 54.8 fl High 35.1-43.9 [facility] Comment on above: Order Comment: 105.1 Performed By: #### L 100.0500, L500.2500 ####[facility] [address] [place], [address] WBC (Bld) [#/Vol] 15.9 10*3/uL High 4.4-11.0 [facility] Comment on above: Order Comment: 105.1 Performed By: #### L 100.0500, L500.2500 ####[facility] [address] [place], [address] Basic Metabolic Profile (BMP )on 01-08-2024 BUN/CRE 28.4 RATIO High 10-20 [facility] Comment on above: Performed By: #### L 500.2500 ####[facility] [address] [place], [address] CA,Total 8.2 mg/dL Low 8.5-10.1 [facility] Comment on above: Performed By: #### L 500.2500 ####[facility] [address] [place], [address] Chloride [Moles/Vol] 100 mmol/L Normal 98-107 [facility] Comment on above: Performed By: #### L 500.2500 ####[facility] [address] [place], [address] CO2 [Moles/Vol] 36.0 mmol/L High 21.0-32.0 [facility] Comment on above: Performed By: #### L 500.2500 ####[facility] [address] [place], [address] Creatinine [Mass/Vol] 1.34 mg/dL High 0.55-1.02 [facility] Comment on above: Result Comment: The validity of the calculated GFR GFRAA in patients over70 years has not been determined. Clinical correlation isessential. Performed By: #### L 500.2500 ####[facility] [address] [place], [address] ECRCL 49.74 ml/min Normal [facility] Comment on above: Performed By: #### L 500.2500 ####[facility] [address] [place], [address] EST GFR - AA 50 mL/min Low >60 [facility] Comment on above: Result Comment: Afri can Niuean GFR Calc Performed By: #### L 500.2500 ####[facility] [address] [place], [address] GAP 5 Normal 5-15 [facility] Comment on above: Performed By: #### L 500.2500 ####[facility] [address] [place] [address] GFR/1.73 sq M.predicted among non-blacks MDRD (S/P/Bld) [Vol rate/Area] 41 mL/min/{1.73_m2} Low >60 [facility] Comment on above: Result Comment: Non- GFR Calc Performed By: #### L 500.2500 ####[facility] [address] [place], [address] Glucose [Mass/Vol] 210 mg/dL High 74-106 [facility] Comment on above: Result Comment: Gluc ose result greater than or equal to 200 mg/dLsuggests DIABETES MELLITUS per A.D.A. criteria. Performed By: #### L 500.2500 ####[facility] [address] [place], [address] Potassium [Moles/Vol] 3.9 mmol/L Normal 3.5-5.1 [facility] Comment on above: Performed By: #### L 500.2500 ####[facility] [address] [place], [address] Sodium [Moles/Vol] 141 mmol/L Normal 136-145 [facility] Comment on above: Performed By: #### L 500.2500 ####[facility] [address] [place], [address] Urea nitrogen [Mass/Vol] 38 mg/dL High 7-18 [facility] Comment on above: Performed By: #### L 500.2500 ####[facility] [address] [place], [address] CXR for Line Placementon CXR for Line Placement Normal [facility] Chest 1 View (Portable)on Chest 1 View (Portable) Normal [facility] Basic Metabolic Profile (BMP )on 01-07-2024 BUN/CRE 27.8 RATIO High 10-20 [facility] Comment on above: Performed By: #### L 500.2500 ####[facility] [address] [place], [address] CA,Total 8.1 mg/dL Low 8.5-10.1 [facility] Comment on above: Performed By: #### L 500.2500 ####[facility] [address] [place], [address] Chloride [Moles/Vol] 101 mmol/L Normal 98-107 [facility] Comment on above: Performed By: #### L 500.2500 ####[facility] [address] [place], [address] CO2 [Moles/Vol] 34.0 mmol/L High 21.0-32.0 [facility] Comment on above: Performed By: #### L 500.2500 ####[facility] [address] [place], [address] Creatinine [Mass/Vol] 1.26 mg/dL High 0.55-1.02 [facility] Comment on above: Result Comment: The validity of the calculated GFR GFRAA in patients over70 years has not been determined. Clinical correlation isessential. Performed By: #### L 500.2500 ####[facility] [address] [place], [address] ECRCL 52.57 ml/min Normal [facility] Comment on above: Performed By: #### L 500.2500 ####[facility] [address] [place], [address] EST GFR - AA 53 mL/min Low >60 [facility] Comment on above: Result Comment: Afri can Niuean GFR Calc Performed By: #### L 500.2500 ####[facility] [address] [place], [address] GAP 7 Normal 5-15 [facility] Comment on above: Performed By: #### L 500.2500 ####[facility] [address] [place], [address] GFR/1.73 sq M.predicted among non-blacks MDRD (S/P/Bld) [Vol rate/Area] 44 mL/min/{1.73_m2} Low >60 [facility] Comment on above: Result Comment: Non- GFR Calc Performed By: #### L 500.2500 ####[facility] [address] [place], [address] Glucose [Mass/Vol] 211 mg/dL High 74-106 [facility] Comment on above: Result Comment: Gluc ose result greater than or equal to 200 mg/dLsuggests DIABETES MELLITUS per A.D.A. criteria. Performed By: #### L 500.2500 ####[facility] [address] [place], [address] Potassium [Moles/Vol] 3.5 mmol/L Normal 3.5-5.1 [facility] Comment on above: Performed By: #### L 500.2500 ####[facility] [address] [place], [address] Sodium [Moles/Vol] 141 mmol/L Normal 136-145 [facility] Comment on above: Performed By: #### L 500.2500 ####[facility] [address] [place], [address] Urea nitrogen [Mass/Vol] 35 mg/dL High 7-18 [facility] Comment on above: Performed By: #### L 500.2500 ####[facility] [address] [place], [address] CDIFF (PCR)on 01-07-2024 CDIFF Normal [facility] Comment on above: Performed By: #### M 100.6796, M100.6795 ####[facility] [address] [place], [address] Clostridium Diff Toxin/Agon 01-07-2024 CDIFF (EIA) Normal [facility] Comment on above: Performed By: #### M 100.6796, M100.6795 ####[facility] [address] [place], [address] Culture, Blood (WB)on 2023 CUB No growth in 5 days. Normal [facility] Comment on above: Performed By: #### M 200.1000 ####[facility] [address] [place], [address] Vancomycin, Random Levelon 0 01-07-2024 VANCO, RANDOM 21.4 ug/mL High 0.0-15.0 [facility] Comment on above: Order Comment: Comme nts: Please draw with AM labs Result Comment: VANC OMYCIN STANDARD DRUG THERAPY: CRITICAL VALUE IS > 15.0 mg/LVANCOMYCIN HIGH INTENSITY THERAPY: CRITICAL VALUE IS > 20.0 mg/LPLEASE CONTACT PHARMACY SERVICES (#7075) FOR INTERPRETATIONOF RESULTS. THIS RESULT DOES NOT REPRESENT A PEAK OR TROUGHLEVEL FOR THIS DRUG. Performed By: #### L 501.8850 ####[facility] [address] [place], [address] Basic Metabolic Profile (BMP )on 01-06-2024 BUN/CRE 23.4 RATIO High 10-20 [facility] Comment on above: Performed By: #### L 500.2500 ####[facility] [address] [place], [address] CA,Total 8.2 mg/dL Low 8.5-10.1 [facility] Comment on above: Performed By: #### L 500.2500 ####[facility] [address] [place], [address] Chloride [Moles/Vol] 102 mmol/L Normal 98-107 [facility] Comment on above: Performed By: #### L 500.2500 ####[facility] [address] [place], [address] CO2 [Moles/Vol] 31.0 mmol/L Normal 21.0-32.0 [facility] Comment on above: Performed By: #### L 500.2500 ####[facility] [address] [place], [address] Creatinine [Mass/Vol] 1.24 mg/dL High 0.55-1.02 [facility] Comment on above: Result Comment: The validity of the calculated GFR GFRAA in patients over70 years has not been determined. Clinical correlation isessential. Performed By: #### L 500.2500 ####[facility] [address] [place], [address] ECRCL 53.36 ml/min Normal [facility] Comment on above: Performed By: #### L 500.2500 ####[facility] [address] [place], [address] EST GFR - AA 54 mL/min Low >60 [facility] Comment on above: Result Comment: Afri can Niuean GFR Calc Performed By: #### L 500.2500 ####[facility] [address] [place], [address] GAP 7 Normal 5-15 [facility] Comment on above: Performed By: #### L 500.2500 ####[facility] [address] [place], [address] GFR/1.73 sq M.predicted among non-blacks MDRD (S/P/Bld) [Vol rate/Area] 45 mL/min/{1.73_m2} Low >60 [facility] Comment on above: Result Comment: Non- GFR Calc Performed By: #### L 500.2500 ####[facility] [address] [place], [address] Glucose [Mass/Vol] 282 mg/dL High 74-106 [facility] Comment on above: Result Comment: Gluc ose result greater than or equal to 200 mg/dLsuggests DIABETES MELLITUS per A.D.A. criteria. Performed By: #### L 500.2500 ####[facility] [address] [place], [address] Potassium [Moles/Vol] 3.1 mmol/L Low 3.5-5.1 [facility] Comment on above: Performed By: #### L 500.2500 ####[facility] [address] [place], [address] Sodium [Moles/Vol] 140 mmol/L Normal 136-145 [facility] Comment on above: Performed By: #### L 500.2500 ####[facility] [address] [place], [address] Urea nitrogen [Mass/Vol] 29 mg/dL High 7-18 [facility] Comment on above: Performed By: #### L 500.2500 ####[facility] [address] [place], [address] CBC-Complete Blood Cnt No Steve lott 01-05-2024 Erythrocyte distribution width (RBC) [Ratio] 17.7 % High 11.6-14.6 [facility] Comment on above: Result Comment: OVER LAPPING- CBCD ORDERED Performed By: #### L 100.0500, L500.4050 ####[facility] [address] [place], [address] Hematocrit (Bld) [Volume fraction] 30.5 % Low 37-47 [facility] Comment on above: Result Comment: OVER LAPPING- CBCD ORDERED Performed By: #### L 100.0500, L500.4050 ####[facility] [address] [place], [address] Hemoglobin (Bld) [Mass/Vol] 9.1 g/dL Low 12.0-15.0 [facility] Comment on above: Result Comment: OVER LAPPING- CBCD ORDERED Performed By: #### L 100.0500, L500.4050 ####[facility] [address] [place], [address] MCH (RBC) [Entitic mass] 25.3 pg Low 27.0-32.0 [facility] Comment on above: Result Comment: OVER LAPPING- CBCD ORDERED Performed By: #### L 100.0500, L500.4050 ####[facility] [address] [place], [address] MCHC (RBC) [Mass/Vol] 29.8 g/dL Low 32-36 [facility] Comment on above: Result Comment: OVER LAPPING- CBCD ORDERED Performed By: #### L 100.0500, L500.4050 ####[facility] [address] [place], [address] MCV (RBC) [Entitic vol] 85.0 fL Normal 81-99 [facility] Comment on above: Result Comment: OVER LAPPING- CBCD ORDERED Performed By: #### L 100.0500, L500.4050 ####[facility] [address] [place], [address] Platelet mean volume (Bld) [Entitic vol] 9.1 fL Normal 6.2-12.0 [facility] Comment on above: Performed By: #### L 100.0500, L500.4050 ####[facility] [address] [place], [address] Platelets (Bld) [#/Vol] 209 10*3/uL Normal 150-450 [facility] Comment on above: Result Comment: OVER LAPPING- CBCD ORDERED Performed By: #### L 100.0500, L500.4050 ####[facility] [address] [place], [address] RBC (Bld) [#/Vol] 3.59 10*6/uL Low 4.2-5.4 [facility] Comment on above: Result Comment: OVER LAPPING- CBCD ORDERED Performed By: #### L 100.0500, L500.4050 ####[facility] [address] [place], [address] RDW SD 55.3 fl High 35.1-43.9 [facility] Comment on above: Result Comment: OVER LAPPING- CBCD ORDERED Performed By: #### L 100.0500, L500.4050 ####[facility] [address] [place], [address] WBC (Bld) [#/Vol] 6.0 10*3/uL Normal 4.4-11.0 [facility] Comment on above: Result Comment: OVER LAPPING- CBCD ORDERED Performed By: #### L 100.0500, L500.4050 ####[facility] [address] [place], [address] Comprehensive Metabolic Prof [facility] 01-05-2024 Albumin [Mass/Vol] 1.8 g/dL Low 3.2-5.0 [facility] Comment on above: Performed By: #### L 100.0500, L500.4050 ####[facility] [address] [place], [address] Albumin/Globulin [Mass ratio] 0.7 {ratio} Low 0.9-2.4 [facility] Comment on above: Performed By: #### L 100.0500, L500.4050 ####[facility] [address] [place], [address] ALK P 139 U/L High 45-117 [facility] Comment on above: Performed By: #### L 100.0500, L500.4050 ####[facility] [address] [place], [address] ALT [Catalytic activity/Vol] 19 U/L Normal 13-56 [facility] Comment on above: Performed By: #### L 100.0500, L500.4050 ####[facility] [address] [place], [address] AST [Catalytic activity/Vol] 20 U/L Normal 15-37 [facility] Comment on above: Performed By: #### L 100.0500, L500.4050 ####[facility] [address] [place], [address] Bilirubin [Mass/Vol] 0.20 mg/dL Normal 0.20-1.00 [facility] Comment on above: Result Comment: For patients on eltrombopag therapy, use of Dimension [place] TBIL is not recommended. Performed By: #### L 100.0500, L500.4050 ####[facility] [address] [place], [address] BUN/CRE 22.7 RATIO High 10-20 [facility] Comment on above: Performed By: #### L 100.0500, L500.4050 ####[facility] [address] [place], [address] CA,Total 8.0 mg/dL Low 8.5-10.1 [facility] Comment on above: Performed By: #### L 100.0500, L500.4050 ####[facility] [address] [place], [address] Chloride [Moles/Vol] 106 mmol/L Normal 98-107 [facility] Comment on above: Performed By: #### L 100.0500, L500.4050 ####[facility] [address] [place], [address] CO2 [Moles/Vol] 28.0 mmol/L Normal 21.0-32.0 [facility] Comment on above: Performed By: #### L 100.0500, L500.4050 ####[facility] [address] [place], [address] Creatinine [Mass/Vol] 1.19 mg/dL High 0.55-1.02 [facility] Comment on above: Result Comment: The validity of the calculated GFR GFRAA in patients over70 years has not been determined. Clinical correlation isessential. Performed By: #### L 100.0500, L500.4050 ####[facility] [address] [place], [address] ECRCL 55.58 ml/min Normal [facility] Comment on above: Performed By: #### L 100.0500, L500.4050 ####[facility] [address] [place], [address] EST GFR - AA 57 mL/min Low >60 [facility] Comment on above: Result Comment: Afri can Niuean GFR Calc Performed By: #### L 100.0500, L500.4050 ####[facility] [address] [place], [address] GAP 8 Normal 5-15 [facility] Comment on above: Performed By: #### L 100.0500, L500.4050 ####[facility] [address] [place], [address] GFR/1.73 sq M.predicted among non-blacks MDRD (S/P/Bld) [Vol rate/Area] 47 mL/min/{1.73_m2} Low >60 [facility] Comment on above: Result Comment: Non- GFR Calc Performed By: #### L 100.0500, L500.4050 ####[facility] [address] [place], [address] Globulin (S) [Mass/Vol] 2.7 g/dL Normal 2.2-4.2 [facility] Comment on above: Performed By: #### L 100.0500, L500.4050 ####[facility] [address] [place], [address] Glucose [Mass/Vol] 253 mg/dL High 74-106 [facility] Comment on above: Result Comment: Gluc ose result greater than or equal to 200 mg/dLsuggests DIABETES MELLITUS per A.D.A. criteria. Performed By: #### L 100.0500, L500.4050 ####[facility] [address] [place], [address] Potassium [Moles/Vol] 3.4 mmol/L Low 3.5-5.1 [facility] Comment on above: Performed By: #### L 100.0500, L500.4050 ####[facility] [address] [place], [address] Sodium [Moles/Vol] 142 mmol/L Normal 136-145 [facility] Comment on above: Performed By: #### L 100.0500, L500.4050 ####[facility] [address] [place], [address] T PROT 4.5 g/dL Low 6.4-8.2 [facility] Comment on above: Performed By: #### L 100.0500, L500.4050 ####[facility] [address] [place], [address] Urea nitrogen [Mass/Vol] 27 mg/dL High 7-18 [facility] Comment on above: Performed By: #### L 100.0500, L500.4050 ####[facility] [address] [place], [address] Vancomycin, Random Levelon 0 - VANCO, RANDOM 24.4 ug/mL High 0.0-15.0 [facility] Comment on above: Result Comment: VANC OMYCIN STANDARD DRUG THERAPY: CRITICAL VALUE IS > 15.0 mg/LVANCOMYCIN HIGH INTENSITY THERAPY: CRITICAL VALUE IS > 20.0 mg/LPLEASE CONTACT PHARMACY SERVICES (#6279) FOR INTERPRETATIONOF RESULTS. THIS RESULT DOES NOT REPRESENT A PEAK OR TROUGHLEVEL FOR THIS DRUG. Performed By: #### L 501.8850 ####[facility] [address] [place], [address] CBC W/Diff, Automatedon 09-2 Absolute Lymph 0.74 X10 3/uL Low 0.83-4.51 [facility] Comment on above: Performed By: #### L 100.0100 ####[facility] [address] [place], [address] Absolute Neut 4.8 X10 3/uL Normal 2.0-7.7 [facility] Comment on above: Performed By: #### L 100.0100 ####[facility] [address] [place], [address] Basophils/100 WBC (Bld) 0.2 % Normal 0-1 [facility] Comment on above: Performed By: #### L 100.0100 ####[facility] [address] [place], [address] Eosinophils/100 WBC (Bld) 0.0 % Normal 0-5 [facility] Comment on above: Performed By: #### L 100.0100 ####[facility] [address] [place], [address] Erythrocyte distribution width (RBC) [Ratio] 17.7 % High 11.6-14.6 [facility] Comment on above: Performed By: #### L 100.0100 ####[facility] [address] [place], [address] Hematocrit (Bld) [Volume fraction] 30.0 % Low 37-47 [facility] Comment on above: Performed By: #### L 100.0100 ####[facility] [address] [place], [address] Hemoglobin (Bld) [Mass/Vol] 9.0 g/dL Low 12.0-15.0 [facility] Comment on above: Performed By: #### L 100.0100 ####[facility] [address] [place], [address] IG% 1.000 High 0.0-0.9 [facility] Comment on above: Result Comment: IG% - Immature Granulocytes (promyelocytes, myelocytes andmetamyelocytes) > 1% indicates that a LEFT SHIFT is Present. Performed By: #### L 100.0100 ####[facility] [address] [place], [address] Lymphocytes/100 WBC (Bld) 12.9 % Low 19-41 [facility] Comment on above: Performed By: #### L 100.0100 ####[facility] [address] [place], [address] MCH (RBC) [Entitic mass] 25.3 pg Low 27.0-32.0 [facility] Comment on above: Performed By: #### L 100.0100 ####[facility] [address] [place], [address] MCHC (RBC) [Mass/Vol] 30.0 g/dL Low 32-36 [facility] Comment on above: Performed By: #### L 100.0100 ####[facility] [address] [place], [address] MCV (RBC) [Entitic vol] 84.3 fL Normal 81-99 [facility] Comment on above: Performed By: #### L 100.0100 ####[facility] [address] [place], [address] Monocytes/100 WBC (Bld) 2.4 % Normal 0-10 [facility] Comment on above: Performed By: #### L 100.0100 ####[facility] [address] [place], [address] Neutrophils/100 WBC (Bld) 83.5 % High 47-70 [facility] Comment on above: Performed By: #### L 100.0100 ####[facility] [address] [place], [address] Nucleated RBC (Bld) [#/Vol] 0 10*3/uL Normal 0-5 [facility] Comment on above: Performed By: #### L 100.0100 ####[facility] [address] [place], [address] Platelet mean volume (Bld) [Entitic vol] 9.4 fL Normal 6.2-12.0 [facility] Comment on above: Performed By: #### L 100.0100 ####[facility] [address] [place], [address] Platelets (Bld) [#/Vol] 219 10*3/uL Normal 150-450 [facility] Comment on above: Performed By: #### L 100.0100 ####[facility] [address] [place], [address] RBC (Bld) [#/Vol] 3.56 10*6/uL Low 4.2-5.4 [facility] Comment on above: Performed By: #### L 100.0100 ####[facility] [address] [place], [address] RDW SD 54.4 fl High 35.1-43.9 [facility] Comment on above: Performed By: #### L 100.0100 ####[facility] [address] [place], [address] WBC (Bld) [#/Vol] 5.8 10*3/uL Normal 4.4-11.0 [facility] Comment on above: Performed By: #### L 100.0100 ####[facility] [address] [place], [address] Comprehensive Metabolic [facility] 01-04-2024 Albumin [Mass/Vol] 1.7 g/dL Low 3.2-5.0 [facility] Comment on above: Performed By: #### L 500.4050 ####[facility] [address] [place], [address] Albumin/Globulin [Mass ratio] 0.6 {ratio} Low 0.9-2.4 [facility] Comment on above: Performed By: #### L 500.4050 ####[facility] [address] [place], [address] ALK P 130 U/L High 45-117 [facility] Comment on above: Performed By: #### L 500.4050 ####[facility] [address] [place], [address] ALT [Catalytic activity/Vol] 17 U/L Normal 13-56 [facility] Comment on above: Performed By: #### L 500.4050 ####[facility] [address] [place], [address] AST [Catalytic activity/Vol] 21 U/L Normal 15-37 [facility] Comment on above: Performed By: #### L 500.4050 ####[facility] [address] [place], [address] Bilirubin [Mass/Vol] 0.30 mg/dL Normal 0.20-1.00 [facility] Comment on above: Result Comment: For patients on eltrombopag therapy, use of Dimension [place] TBIL is not recommended. Performed By: #### L 500.4050 ####[facility] [address] [place], [address] BUN/CRE 24.8 RATIO High 10-20 [facility] Comment on above: Performed By: #### L 500.4050 ####[facility] [address] [place], [address] CA,Total 7.9 mg/dL Low 8.5-10.1 [facility] Comment on above: Performed By: #### L 500.4050 ####[facility] [address] [place], [address] Chloride [Moles/Vol] 105 mmol/L Normal 98-107 [facility] Comment on above: Performed By: #### L 500.4050 ####[facility] [address] [place], [address] CO2 [Moles/Vol] 29.0 mmol/L Normal 21.0-32.0 [facility] Comment on above: Performed By: #### L 500.4050 ####[facility] [address] [place], [address] Creatinine [Mass/Vol] 1.09 mg/dL High 0.55-1.02 [facility] Comment on above: Result Comment: The validity of the calculated GFR GFRAA in patients over70 years has not been determined. Clinical correlation isessential. Performed By: #### L 500.4050 ####[facility] [address] [place], [address] ECRCL 63.06 ml/min Normal [facility] Comment on above: Performed By: #### L 500.4050 ####[facility] [address] [place], [address] EST GFR - AA 63 mL/min Normal >60 [facility] Comment on above: Result Comment: Afri can Niuean GFR Calc Performed By: #### L 500.4050 ####[facility] [address] [place], [address] GAP 6 Normal 5-15 [facility] Comment on above: Performed By: #### L 500.4050 ####[facility] [address] [place], [address] GFR/1.73 sq M.predicted among non-blacks MDRD (S/P/Bld) [Vol rate/Area] 52 mL/min/{1.73_m2} Low >60 [facility] Comment on above: Result Comment: Non- GFR Calc Performed By: #### L 500.4050 ####[facility] [address] [place], [address] Globulin (S) [Mass/Vol] 2.9 g/dL Normal 2.2-4.2 [facility] Comment on above: Performed By: #### L 500.4050 ####[facility] [address] [place], [address] Glucose [Mass/Vol] 233 mg/dL High 74-106 [facility] Comment on above: Result Comment: Gluc ose result greater than or equal to 200 mg/dLsuggests DIABETES MELLITUS per A.D.A. criteria. Performed By: #### L 500.4050 ####[facility] [address] [place], [address] Potassium [Moles/Vol] 3.3 mmol/L Low 3.5-5.1 [facility] Comment on above: Performed By: #### L 500.4050 ####[facility] [address] [place], [address] Sodium [Moles/Vol] 140 mmol/L Normal 136-145 [facility] Comment on above: Performed By: #### L 500.4050 ####[facility] [address] [place], [address] T PROT 4.6 g/dL Low 6.4-8.2 [facility] Comment on above: Performed By: #### L 500.4050 ####[facility] [address] [place], [address] Urea nitrogen [Mass/Vol] 27 mg/dL High 7-18 [facility] Comment on above: Performed By: #### L 500.4050 ####[facility] [address] [place], [address] Urine Cultureon 01-04-2024 URC Normal [facility] Comment on above: Performed By: #### L 400.0001, M100.678, M100.2200 ####[facility] [address] [place], [address] Vancomycin, Random Levelon 0 01-04-2024 VANCO, RANDOM 29.0 ug/mL High 0.0-15.0 [facility] Comment on above: Result Comment: VANC OMYCIN STANDARD DRUG THERAPY: CRITICAL VALUE IS > 15.0 mg/LVANCOMYCIN HIGH INTENSITY THERAPY: CRITICAL VALUE IS > 20.0 mg/LPLEASE CONTACT PHARMACY SERVICES (#8675) FOR INTERPRETATIONOF RESULTS. THIS RESULT DOES NOT REPRESENT A PEAK OR TROUGHLEVEL FOR THIS DRUG. Performed By: #### L 501.8850 ####[facility] [address] [place], [address] CBC W/Diff, Automatedon 12-09 Absolute Lymph 1.06 X10 3/uL Normal 0.83-4.51 [facility] Comment on above: Performed By: #### L 100.0100 ####[facility] [address] [place], [address] Absolute Neut 11.3 X10 3/uL High 2.0-7.7 [facility] Comment on above: Performed By: #### L 100.0100 ####[facility] [address] [place], [address] Basophils/100 WBC (Bld) 0.2 % Normal 0-1 [facility] Comment on above: Performed By: #### L 100.0100 ####[facility] [address] [place], [address] Eosinophils/100 WBC (Bld) 0.0 % Normal 0-5 [facility] Comment on above: Performed By: #### L 100.0100 ####[facility] [address] [place], [address] Erythrocyte distribution width (RBC) [Ratio] 18.1 % High 11.6-14.6 [facility] Comment on above: Performed By: #### L 100.0100 ####[facility] [address] [place], [address] Hematocrit (Bld) [Volume fraction] 33.7 % Low 37-47 [facility] Comment on above: Performed By: #### L 100.0100 ####[facility] [address] [place], [address] Hemoglobin (Bld) [Mass/Vol] 10.0 g/dL Low 12.0-15.0 [facility] Comment on above: Performed By: #### L 100.0100 ####[facility] [address] [place], [address] IG% 0.600 Normal 0.0-0.9 [facility] Comment on above: Result Comment: IG% - Immature Granulocytes (promyelocytes, myelocytes andmetamyelocytes) > 1% indicates that a LEFT SHIFT is Present. Performed By: #### L 100.0100 ####[facility] [address] [place], [address] Lymphocytes/100 WBC (Bld) 8.2 % Low 19-41 [facility] Comment on above: Performed By: #### L 100.0100 ####[facility] [address] [place], [address] MCH (RBC) [Entitic mass] 25.7 pg Low 27.0-32.0 [facility] Comment on above: Performed By: #### L 100.0100 ####[facility] [address] [place], [address] MCHC (RBC) [Mass/Vol] 29.7 g/dL Low 32-36 [facility] Comment on above: Performed By: #### L 100.0100 ####[facility] [address] [place], [address] MCV (RBC) [Entitic vol] 86.6 fL Normal 81-99 [facility] Comment on above: Performed By: #### L 100.0100 ####[facility] [address] [place], [address] Monocytes/100 WBC (Bld) 3.5 % Normal 0-10 [facility] Comment on above: Performed By: #### L 100.0100 ####[facility] [address] [place], [address] Neutrophils/100 WBC (Bld) 87.5 % High 47-70 [facility] Comment on above: Performed By: #### L 100.0100 ####[facility] [address] [place], [address] Nucleated RBC (Bld) [#/Vol] 0 10*3/uL Normal 0-5 [facility] Comment on above: Performed By: #### L 100.0100 ####[facility] [address] [place], [address] Platelet mean volume (Bld) [Entitic vol] 9.4 fL Normal 6.2-12.0 [facility] Comment on above: Performed By: #### L 100.0100 ####[facility] [address] [place], [address] Platelets (Bld) [#/Vol] 287 10*3/uL Normal 150-450 [facility] Comment on above: Performed By: #### L 100.0100 ####[facility] [address] [place], [address] RBC (Bld) [#/Vol] 3.89 10*6/uL Low 4.2-5.4 [facility] Comment on above: Performed By: #### L 100.0100 ####[facility] [address] [place], [address] RDW SD 57.3 fl High 35.1-43.9 [facility] Comment on above: Performed By: #### L 100.0100 ####[facility] [address] [place], [address] WBC (Bld) [#/Vol] 12.9 10*3/uL High 4.4-11.0 [facility] Comment on above: Performed By: #### L 100.0100 ####[facility] [address] [place], [address] Comprehensive Metabolic Prof ilon 01-03-2024 Albumin [Mass/Vol] 1.8 g/dL Low 3.2-5.0 [facility] Comment on above: Performed By: #### L 500.4050 ####[facility] [address] [place], [address] Albumin/Globulin [Mass ratio] 0.6 {ratio} Low 0.9-2.4 [facility] Comment on above: Performed By: #### L 500.4050 ####[facility] [address] [place], [address] ALK P 141 U/L High 45-117 [facility] Comment on above: Performed By: #### L 500.4050 ####[facility] [address] [place], [address] ALT [Catalytic activity/Vol] 18 U/L Normal 13-56 [facility] Comment on above: Performed By: #### L 500.4050 ####[facility] [address] [place], [address] AST [Catalytic activity/Vol] 27 U/L Normal 15-37 [facility] Comment on above: Performed By: #### L 500.4050 ####[facility] [address] [place], [address] Bilirubin [Mass/Vol] 0.30 mg/dL Normal 0.20-1.00 [facility] Comment on above: Result Comment: For patients on eltrombopag therapy, use of Dimension [place] TBIL is not recommended. Performed By: #### L 500.4050 ####[facility] [address] [place], [address] BUN/CRE 25.0 RATIO High 10-20 [facility] Comment on above: Performed By: #### L 500.4050 ####[facility] [address] [place], [address] CA,Total 7.9 mg/dL Low 8.5-10.1 [facility] Comment on above: Performed By: #### L 500.4050 ####[facility] [address] [place], [address] Chloride [Moles/Vol] 107 mmol/L Normal 98-107 [facility] Comment on above: Performed By: #### L 500.4050 ####[facility] [address] [place], [address] CO2 [Moles/Vol] 27.0 mmol/L Normal 21.0-32.0 [facility] Comment on above: Performed By: #### L 500.4050 ####[facility] [address] [place], [address] Creatinine [Mass/Vol] 1.04 mg/dL High 0.55-1.02 [facility] Comment on above: Result Comment: The validity of the calculated GFR GFRAA in patients over70 years has not been determined. Clinical correlation isessential. Performed By: #### L 500.4050 ####[facility] [address] [place], [address] ECRCL 64.35 ml/min Normal [facility] Comment on above: Performed By: #### L 500.4050 ####[facility] [address] [place], [address] EST GFR - AA 66 mL/min Normal >60 [facility] Comment on above: Result Comment: Afri can Niuean GFR Calc Performed By: #### L 500.4050 ####[facility] [address] [place], [address] GAP 8 Normal 5-15 [facility] Comment on above: Performed By: #### L 500.4050 ####[facility] [address] [place], [address] GFR/1.73 sq M.predicted among non-blacks MDRD (S/P/Bld) [Vol rate/Area] 55 mL/min/{1.73_m2} Low >60 [facility] Comment on above: Result Comment: Non- GFR Calc Performed By: #### L 500.4050 ####[facility] [address] [place], [address] Globulin (S) [Mass/Vol] 3.0 g/dL Normal 2.2-4.2 [facility] Comment on above: Performed By: #### L 500.4050 ####[facility] [address] [place], [address] Glucose [Mass/Vol] 183 mg/dL High 74-106 [facility] Comment on above: Result Comment: Fast ing Glucose result greater than or equal to 126 mg/dLsuggests DIABETES MELLITUS per A.D.A. criteria. Performed By: #### L 500.4050 ####[facility] [address] [place], [address] Potassium [Moles/Vol] 3.8 mmol/L Normal 3.5-5.1 [facility] Comment on above: Performed By: #### L 500.4050 ####[facility] [address] [place], [address] Sodium [Moles/Vol] 142 mmol/L Normal 136-145 [facility] Comment on above: Performed By: #### L 500.4050 ####[facility] [address] [place], [address] T PROT 4.8 g/dL Low 6.4-8.2 [facility] Comment on above: Performed By: #### L 500.4050 ####[facility] [address] [place], [address] Urea nitrogen [Mass/Vol] 26 mg/dL High 7-18 [facility] Comment on above: Performed By: #### L 500.4050 ####[facility] [address] [place], [address] Culture, Blood (WB)on 2023 CUB Normal [facility] Comment on above: Performed By: #### M 200.1000 ####[facility] [address] [place], [place], [address] Vancomycin, Random Levelon 0 01-03-2024 VANCO, RANDOM 34.5 ug/mL High 0.0-15.0 [facility] Comment on above: Result Comment: VANC OMYCIN STANDARD DRUG THERAPY: CRITICAL VALUE IS > 15.0 mg/LVANCOMYCIN HIGH INTENSITY THERAPY: CRITICAL VALUE IS > 20.0 mg/LPLEASE CONTACT PHARMACY SERVICES (#6596) FOR INTERPRETATIONOF RESULTS. THIS RESULT DOES NOT REPRESENT A PEAK OR TROUGHLEVEL FOR THIS DRUG. Performed By: #### L 501.8850 ####[facility] [address] [facility] [address] Basic Metabolic Profile (BMP )on 01-02-2024 BUN Normal 7-18 [facility] Comment on above: Result Comment: @OK TO CANCEL PER C.LUCIA DUPLICATE ORDER Performed By: #### L 500.2500 ####[facility] [address] [place], [place], [address] BUN/CRE Normal 10-20 [facility] Comment on above: Result Comment: @OK TO CANCEL PER C.LUCIA DUPLICATE ORDER Performed By: #### L 500.2500 ####[facility] [address] [place], [address] CA,Total Normal 8.5-10.1 [facility] Comment on above: Result Comment: @OK TO CANCEL PER C.LUCIA DUPLICATE ORDER Performed By: #### L 500.2500 ####[facility] [address] [place], [address] CL Normal 98-107 [facility] Comment on above: Result Comment: @OK TO CANCEL PER C.LUICA DUPLICATE ORDER Performed By: #### L 500.2500 ####[facility] [address] [place], [address] CO2 Normal 21.0-32.0 [facility] Comment on above: Result Comment: @OK TO CANCEL PER C.LUCIA DUPLICATE ORDER Performed By: #### L 500.2500 ####[facility] [address] [place], [address] CREAT,SERUM Normal 0.55-1.02 [facility] Comment on above: Result Comment: @OK TO CANCEL PER C.LUCIA DUPLICATE ORDER Performed By: #### L 500.2500 ####[facility] [address] [place], [address] EST GFR Normal >60 [facility] Comment on above: Result Comment: @OK TO CANCEL PER C.LUCIA DUPLICATE ORDER Performed By: #### L 500.2500 ####[facility] [address] [place], [address] EST GFR - AA Normal >60 [facility] Comment on above: Result Comment: @OK TO CANCEL PER C.LUCIA DUPLICATE ORDER Performed By: #### L 500.2500 ####[facility] [address] [place], [address] GAP Normal 5-15 [facility] Comment on above: Result Comment: @OK TO CANCEL PER C.LUCIA DUPLICATE ORDER Performed By: #### L 500.2500 ####[facility] [address] [place], [address] GLU Normal 74-106 [facility] Comment on above: Result Comment: @OK TO CANCEL PER C.LUCIA DUPLICATE ORDER Performed By: #### L 500.2500 ####[facility] [address] [place], [address] Potassium Normal 3.5-5.1 [facility] Comment on above: Result Comment: @OK TO CANCEL PER C.LUCIA DUPLICATE ORDER Performed By: #### L 500.2500 ####[facility] [address] [place], [address] Basic Metabolic Profile (BMP) Normal 136-145 [facility] Comment on above: Result Comment: @OK TO CANCEL PER KATARINA DUPLICATE ORDER Performed By: #### L 500.2500 ####[facility] [address] [place], [address] BUN/CRE 35.1 RATIO High 10-20 [facility] Comment on above: Performed By: #### L 500.2500, L501.5200 ####[facility] [address] [place], [address] CA,Total 8.1 mg/dL Low 8.5-10.1 [facility] Comment on above: Performed By: #### L 500.2500, L501.5200 ####[facility] [address] [place], [address] Chloride [Moles/Vol] 108 mmol/L High 98-107 [facility] Comment on above: Performed By: #### L 500.2500, L501.5200 ####[facility] [address] [place], [address] CO2 [Moles/Vol] 29.0 mmol/L Normal 21.0-32.0 [facility] Comment on above: Performed By: #### L 500.2500, L501.5200 ####[facility] [address] [place], [address] Creatinine [Mass/Vol] 0.66 mg/dL Normal 0.55-1.02 [facility] Comment on above: Result Comment: The validity of the calculated GFR GFRAA in patients over70 years has not been determined. Clinical correlation isessential. Performed By: #### L 500.2500, L501.5200 ####[facility] [address] [place], [address] ECRCL 83.81 ml/min Normal [facility] Comment on above: Performed By: #### L 500.2500, L501.5200 ####[facility] [address] [place], [address] EST GFR - AA 113 mL/min Normal >60 [facility] Comment on above: Result Comment: Afri can Niuean GFR Calc Performed By: #### L 500.2500, L501.5200 ####[facility] [address] [place], [address] GAP 6 Normal 5-15 [facility] Comment on above: Performed By: #### L 500.2500, L501.5200 ####[facility] [address] [place], [address] GFR/1.73 sq M.predicted among non-blacks MDRD (S/P/Bld) [Vol rate/Area] 93 mL/min/{1.73_m2} Normal >60 [facility] Comment on above: Result Comment: Non- GFR Calc Performed By: #### L 500.2500, L501.5200 ####[facility] [address] [place], [address] Glucose [Mass/Vol] 165 mg/dL High 74-106 [facility] Comment on above: Result Comment: Fast ing Glucose result greater than or equal to 126 mg/dLsuggests DIABETES MELLITUS per A.D.A. criteria. Performed By: #### L 500.2500, L501.5200 ####[facility] [address] [place], [address] Potassium [Moles/Vol] 4.0 mmol/L Normal 3.5-5.1 [facility] Comment on above: Performed By: #### L 500.2500, L501.5200 ####[facility] [address] [place], [address] Sodium [Moles/Vol] 143 mmol/L Normal 136-145 [facility] Comment on above: Performed By: #### L 500.2500, L501.5200 ####[facility] [address] [place], [address] Urea nitrogen [Mass/Vol] 23 mg/dL High 7-18 [facility] Comment on above: Performed By: #### L 500.2500, L501.5200 ####[facility] [address] [place], [address] Consultation - Infectious Dx on 01-02-2024 Consultation - Infectious Dx Normal [facility] Magnesiumon 01-02-2024 Magnesium [Mass/Vol] 1.7 mg/dL Normal 1.6-2.6 [facility] Comment on above: Performed By: #### L 500.2500, L501.5200 ####[facility] [address] [place], [address] Vancomycin, Trough Levelon 0 01-02-2024 VANCO, TROUGH 43.5 ug/mL High 5.0-15.0 [facility] Comment on above: Order Comment: Comme nts: Trough to be drawn 30 mins prior to scheduled [id number] Result Comment: VANC OMYCIN STANDARED DRUG THERAPY TROUGH LEVEL: 5.0 - 15.0 mg/LVANCOMYCIN HIGH INTENSITY THERAPY TROUGH LEVEL: 15.0 - 20.0 mg/LHigh Intensity therapy recommended for serious lifethreatening infections include:- Zgtdiksbvs-Mfyjmrctfesl-Lvwvrjudi (Ventilator/Healtcare Associated)-SepsisPLEASE CONTACT PHARMACY SERVICES (#4015) FOR INTERPRETATIONOF RESULTS. Performed By: #### L 501.8820 ####[facility] [address], [address] Alcohol, Blood (Medical)-Ser umon 01-01-2024 SERUM ETOH 5.0 mg/dL Normal [facility] Comment on above: Result Comment: The serum:whole blood ethanol ratio is approximately 1.14and varies slightly with hematocrit.Medical Alcohol reference interval and critical value innon-tolerant individuals; 50 - 100 Impairment 100 Intoxication 100 - 250 Severe Poisoning 250 - 400 Deep/possible fatal coma Performed By: #### L 505.5000, L506.0250, L501.9100 ####[facility] [address] [place], [address] CBC W/Diff, Automatedon 12-09 Absolute Lymph 0.64 X10 3/uL Low 0.83-4.51 [facility] Comment on above: Performed By: #### L 100.0100, L500.4050, L501.2300, L501.5200, L501.9520 ####[facility] [address] [place], [address] Absolute Neut 4.9 X10 3/uL Normal 2.0-7.7 [facility] Comment on above: Performed By: #### L 100.0100, L500.4050, L501.2300, L501.5200, L501.9520 ####[facility] [address] [place], [address] Basophils/100 WBC (Bld) 0.4 % Normal 0-1 [facility] Comment on above: Performed By: #### L 100.0100, L500.4050, L501.2300, L501.5200, L501.9520 ####[facility] [address] [place], [address] Eosinophils/100 WBC (Bld) 0.4 % Normal 0-5 [facility] Comment on above: Performed By: #### L 100.0100, L500.4050, L501.2300, L501.5200, L501.9520 ####[facility] [address] [place], [address] Erythrocyte distribution width (RBC) [Ratio] 17.4 % High 11.6-14.6 [facility] Comment on above: Performed By: #### L 100.0100, L500.4050, L501.2300, L501.5200, L501.9520 ####[facility] [address] [place], [address] Hematocrit (Bld) [Volume fraction] 31.3 % Low 37-47 [facility] Comment on above: Performed By: #### L 100.0100, L500.4050, L501.2300, L501.5200, L501.9520 ####[facility] [address] [place], [address] Hemoglobin (Bld) [Mass/Vol] 9.3 g/dL Low 12.0-15.0 [facility] Comment on above: Performed By: #### L 100.0100, L500.4050, L501.2300, L501.5200, L501.9520 ####[facility] [address] [place], [address] IG% 0.500 Normal 0.0-0.9 [facility] Comment on above: Result Comment: IG% - Immature Granulocytes (promyelocytes, myelocytes andmetamyelocytes) > 1% indicates that a LEFT SHIFT is Present. Performed By: #### L 100.0100, L500.4050, L501.2300, L501.5200, L501.9520 ####[facility] [address] [place], [address] Lymphocytes/100 WBC (Bld) 11.3 % Low 19-41 [facility] Comment on above: Performed By: #### L 100.0100, L500.4050, L501.2300, L501.5200, L501.9520 ####[facility] [address] [place], [address] MCH (RBC) [Entitic mass] 25.3 pg Low 27.0-32.0 [facility] Comment on above: Performed By: #### L 100.0100, L500.4050, L501.2300, L501.5200, L501.9520 ####[facility] [address] [place], [address] MCHC (RBC) [Mass/Vol] 29.7 g/dL Low 32-36 [facility] Comment on above: Performed By: #### L 100.0100, L500.4050, L501.2300, L501.5200, L501.9520 ####[facility] [address] [place], [address] MCV (RBC) [Entitic vol] 85.1 fL Normal 81-99 [facility] Comment on above: Performed By: #### L 100.0100, L500.4050, L501.2300, L501.5200, L501.9520 ####[facility] [address] [place], [address] Monocytes/100 WBC (Bld) 1.1 % Normal 0-10 [facility] Comment on above: Performed By: #### L 100.0100, L500.4050, L501.2300, L501.5200, L501.9520 ####[facility] [address] [place], [address] Neutrophils/100 WBC (Bld) 86.3 % High 47-70 [facility] Comment on above: Performed By: #### L 100.0100, L500.4050, L501.2300, L501.5200, L501.9520 ####[facility] [address] [place], [address] Nucleated RBC (Bld) [#/Vol] 0 10*3/uL Normal 0-5 [facility] Comment on above: Performed By: #### L 100.0100, L500.4050, L501.2300, L501.5200, L501.9520 ####[facility] [address] [place], [address] Platelet mean volume (Bld) [Entitic vol] 9.2 fL Normal 6.2-12.0 [facility] Comment on above: Performed By: #### L 100.0100, L500.4050, L501.2300, L501.5200, L501.9520 ####[facility] [address] [place], [address] Platelets (Bld) [#/Vol] 196 10*3/uL Normal 150-450 [facility] Comment on above: Performed By: #### L 100.0100, L500.4050, L501.2300, L501.5200, L501.9520 ####[facility] [address] [place], [address] RBC (Bld) [#/Vol] 3.68 10*6/uL Low 4.2-5.4 [facility] Comment on above: Performed By: #### L 100.0100, L500.4050, L501.2300, L501.5200, L501.9520 ####[facility] [address] [place], [address] RDW SD 54.6 fl High 35.1-43.9 [facility] Comment on above: Performed By: #### L 100.0100, L500.4050, L501.2300, L501.5200, L501.9520 ####[facility] [address] [place], [address] WBC (Bld) [#/Vol] 5.7 10*3/uL Normal 4.4-11.0 [facility] Comment on above: Performed By: #### L 100.0100, L500.4050, L501.2300, L501.5200, L501.9520 ####[facility] [address] [place], [address] Chest 1 View (Portable)on Chest 1 View (Portable) Normal [facility] Comprehensive Metabolic Prof ilon 01-01-2024 Albumin [Mass/Vol] 1.4 g/dL Low 3.2-5.0 [facility] Comment on above: Performed By: #### L 100.0100, L500.4050, L501.2300, L501.5200, L501.9520 ####[facility] [address] [place], [address] Albumin/Globulin [Mass ratio] 0.5 {ratio} Low 0.9-2.4 [facility] Comment on above: Performed By: #### L 100.0100, L500.4050, L501.2300, L501.5200, L501.9520 ####[facility] [address] [place], [address] ALK P 128 U/L High 45-117 [facility] Comment on above: Performed By: #### L 100.0100, L500.4050, L501.2300, L501.5200, L501.9520 ####[facility] [address] [place], [address] ALT [Catalytic activity/Vol] 12 U/L Low 13-56 [facility] Comment on above: Performed By: #### L 100.0100, L500.4050, L501.2300, L501.5200, L501.9520 ####[facility] [address] [place], [address] AST [Catalytic activity/Vol] 15 U/L Normal 15-37 [facility] Comment on above: Performed By: #### L 100.0100, L500.4050, L501.2300, L501.5200, L501.9520 ####[facility] [address] [place], [address] Bilirubin [Mass/Vol] 0.30 mg/dL Normal 0.20-1.00 [facility] Comment on above: Result Comment: For patients on eltrombopag therapy, use of Dimension [place] TBIL is not recommended. Performed By: #### L 100.0100, L500.4050, L501.2300, L501.5200, L501.9520 ####[facility] [address] [place], [address] BUN/CRE 43.7 RATIO High 10-20 [facility] Comment on above: Performed By: #### L 100.0100, L500.4050, L501.2300, L501.5200, L501.9520 ####[facility] [address] [place], [address] CA,Total 7.4 mg/dL Low 8.5-10.1 [facility] Comment on above: Performed By: #### L 100.0100, L500.4050, L501.2300, L501.5200, L501.9520 ####[facility] [address] [place], [address] Chloride [Moles/Vol] 109 mmol/L High 98-107 [facility] Comment on above: Performed By: #### L 100.0100, L500.4050, L501.2300, L501.5200, L501.9520 ####[facility] [address] [place], [address] CO2 [Moles/Vol] 29.0 mmol/L Normal 21.0-32.0 [facility] Comment on above: Performed By: #### L 100.0100, L500.4050, L501.2300, L501.5200, L501.9520 ####[facility] [address] [place], [address] Creatinine [Mass/Vol] 0.46 mg/dL Low 0.55-1.02 [facility] Comment on above: Result Comment: The validity of the calculated GFR GFRAA in patients over70 years has not been determined. Clinical correlation isessential. Performed By: #### L 100.0100, L500.4050, L501.2300, L501.5200, L501.9520 ####[facility] [address] [place], [address] ECRCL 83.43 ml/min Normal [facility] Comment on above: Performed By: #### L 100.0100, L500.4050, L501.2300, L501.5200, L501.9520 ####[facility] [address] [place], [address] EST GFR - AA 171 mL/min Normal >60 [facility] Comment on above: Result Comment: Afri can Niuean GFR Calc Performed By: #### L 100.0100, L500.4050, L501.2300, L501.5200, L501.9520 ####[facility] [address] [place], [address] GAP 5 Normal 5-15 [facility] Comment on above: Performed By: #### L 100.0100, L500.4050, L501.2300, L501.5200, L501.9520 ####[facility] [address] [place], [address] GFR/1.73 sq M.predicted among non-blacks MDRD (S/P/Bld) [Vol rate/Area] 141 mL/min/{1.73_m2} Normal >60 [facility] Comment on above: Result Comment: Non- GFR Calc Performed By: #### L 100.0100, L500.4050, L501.2300, L501.5200, L501.9520 ####[facility] [address] [place], [address] Globulin (S) [Mass/Vol] 3.0 g/dL Normal 2.2-4.2 [facility] Comment on above: Performed By: #### L 100.0100, L500.4050, L501.2300, L501.5200, L501.9520 ####[facility] [address] [place], [address] Glucose [Mass/Vol] 151 mg/dL High 74-106 [facility] Comment on above: Result Comment: Fast ing Glucose result greater than or equal to 126 mg/dLsuggests DIABETES MELLITUS per A.D.A. criteria. Performed By: #### L 100.0100, L500.4050, L501.2300, L501.5200, L501.9520 ####[facility] [address] [place], [address] Potassium [Moles/Vol] 3.7 mmol/L Normal 3.5-5.1 [facility] Comment on above: Performed By: #### L 100.0100, L500.4050, L501.2300, L501.5200, L501.9520 ####[facility] [address] [place], [address] Sodium [Moles/Vol] 143 mmol/L Normal 136-145 [facility] Comment on above: Performed By: #### L 100.0100, L500.4050, L501.2300, L501.5200, L501.9520 ####[facility] [address] [place], [address] T PROT 4.4 g/dL Low 6.4-8.2 [facility] Comment on above: Performed By: #### L 100.0100, L500.4050, L501.2300, L501.5200, L501.9520 ####[facility] [address] [place], [address] Urea nitrogen [Mass/Vol] 20 mg/dL High 7-18 [facility] Comment on above: Performed By: #### L 100.0100, L500.4050, L501.2300, L501.5200, L501.9520 ####[facility] [address] [place], [address] Echo Completeon 01-01-2024 Echo Complete Normal [facility] Magnesiumon 01-01-2024 Magnesium [Mass/Vol] 1.4 mg/dL Low 1.6-2.6 [facility] Comment on above: Performed By: #### L 100.0100, L500.4050, L501.2300, L501.5200, L501.9520 ####[facility] [address] [place], [address] Phosphoruson 01-01-2024 Phosphate [Mass/Vol] 3.4 mg/dL Normal 2.5-4.9 [facility] Comment on above: Performed By: #### L 100.0100, L500.4050, L501.2300, L501.5200, L501.9520 ####[facility] [address] [place], [address] Thyroid Stim Hormone (TSH)on 01-01-2024 TSH 1.650 uIU/mL Normal 0.358-3.740 [facility] Comment on above: Performed By: #### L 100.0100, L500.4050, L501.2300, L501.5200, L501.9520 ####[facility] [address] [place], [address] Urine Drug Screen (VISTA)on 01-01-2024 VISTA UDS PH 6 Normal [facility] Comment on above: Result Comment: AMENDED REPORT 01/01/24 06 VISTA UDS PH previously reported as: 5 Performed By: #### L 505.5000, L506.0250, L501.9100 ####[facility] [address] [place], [address] Venous Blood Gason 4 Blood Gas Type SOLIS Normal [facility] Comment on above: Performed By: #### L 0.0810 ####[facility] [address] [place], [address] CO2 [Moles/Vol] 29 mmol/L Normal 23-33 [facility] Comment on above: Performed By: #### L 8999.0810 ####[facility] [address] [place], [address] FI02 30.0 Normal [facility] Comment on above: Performed By: #### L 0.0810 ####[facility] [address] [place], [address] HCO3 (Bld) [Moles/Vol] 28 mmol/L High 22-26 [facility] Comment on above: Performed By: #### L 8999.0810 ####[facility] [address] [place], [address] O2 Delivery Dev BiPAP Normal [facility] Comment on above: Performed By: #### L 8999.0810 ####[facility] [address] [place], [address] SITE Not entered Normal [facility] Comment on above: Performed By: #### L 0.0810 ####[facility] [address] [place], [address] VBG BE 4 mmol/L High -1.0-3.5 [facility] Comment on above: Performed By: #### L 900.0810 ####[facility] [address] [place], [address] VBG pCO2 38.9 mmHg Low 41-51 [facility] Comment on above: Performed By: #### L 8999.0810 ####[facility] [address] [place], [address] VBG pH 7.47 High 7.32-7.42 [facility] Comment on above: Performed By: #### L 9000.0810 ####[facility] [address] [place], [address] VBG PO2 51 mmHg High 25-40 [facility] Comment on above: Performed By: #### L 9000.0810 ####[facility] [address] [place], [address] VBG SO2 88 High 50-70 [facility] Comment on above: Performed By: #### L 9000.0810 ####[facility] [address] [place], [address] 12 Lead EKGon 12-31-2023 12 Lead EKG Normal [facility] Ammoniaon 12-31-2023 Ammonia (P) [Moles/Vol] 19.0 umol/L Normal 11-32 [facility] Comment on above: Performed By: #### L 503.5510 ####[facility] [address] [place], [address] BNP,B-Type NATRIURETIC PEPTI Larry 12-31-2023 Natriuretic peptide B (Bld) [Mass/Vol] 566.6 pg/mL High 0-100 [facility] Comment on above: Performed By: #### L 503.6620 ####[facility] [address] [place], [address] Blood Gases by CPSon 024 ANUJ TEST Positive Normal [facility] Comment on above: Performed By: #### L 9000.0800 ####[facility] [address] [place], [address] Base excess Calc (Bld) [Moles/Vol] 9 mmol/L High -2 to +2 [facility] Comment on above: Performed By: #### L 9000.0800 ####[facility] [address] [place], [address] Blood Gas Type ART Normal [facility] Comment on above: Performed By: #### L 8999.08 ####[facility] [address] [place], [address] CO2 [Moles/Vol] 34 mmol/L Normal [facility] Comment on above: Performed By: #### L 8999.08 ####[facility] [address] [place], [address] FI02 50.0 Normal [facility] Comment on above: Performed By: #### L 8999.0800 ####[facility] [address] [place], [address] HCO3 (Bld) [Moles/Vol] 32.6 mmol/L High 22-26 [facility] Comment on above: Performed By: #### L 8999.08 ####[facility] [address] [place], [address] Mode Not entered Normal [facility] Comment on above: Performed By: #### L 8999.08 ####[facility] [address] [place], [address] O2 Delivery Dev BiPAP Normal [facility] Comment on above: Performed By: #### L 8999.0800 ####[facility] [address] [place], [address] pCO2 45.3 mmHg High 35-45 [facility] Comment on above: Performed By: #### L 8999.08 ####[facility] [address] [place], [address] PEEP 6 Normal [facility] Comment on above: Performed By: #### L 8999.0800 ####[facility] [address] [place], [address] pH (Bld) 7.47 [pH] High 7.35-7.45 [facility] Comment on above: Performed By: #### L 9000.0800 ####[facility] [address] [place], [address] PIP 14 Normal [facility] Comment on above: Performed By: #### L 9000.0800 ####[facility] [address] [place], [address] PO2 198 mmHG High 75-100 [facility] Comment on above: Performed By: #### L 9000.0800 ####[facility] [address] [place], [address] RR 12 Normal [facility] Comment on above: Performed By: #### L 9000.0800 ####[facility] [address] [place], [address] SITE L Radial Normal [facility] Comment on above: Performed By: #### L 9000.0800 ####[facility] [address] [place], [address] SO2 100 High 95-99 [facility] Comment on above: Performed By: #### L 9000.0800 ####[facility] [address] [place], [address] CBC W/Diff, Automatedon 12-09 Absolute Lymph 1.86 X10 3/uL Normal 0.83-4.51 [facility] Comment on above: Performed By: #### L 100.0100, L300.3900, L300.4310, L500.4050, L501.4020, L503.6005 ####[facility] [address] [place], [address] Absolute Neut 4.9 X10 3/uL Normal 2.0-7.7 [facility] Comment on above: Performed By: #### L 100.0100, L300.3900, L300.4310, L500.4050, L501.4020, L503.6005 ####[facility] [address] [place], [address] Basophils/100 WBC (Bld) 0.7 % Normal 0-1 [facility] Comment on above: Performed By: #### L 100.0100, L300.3900, L300.4310, L500.4050, L501.4020, L503.6005 ####[facility] [address] [place], [address] Eosinophils/100 WBC (Bld) 2.9 % Normal 0-5 [facility] Comment on above: Performed By: #### L 100.0100, L300.3900, L300.4310, L500.4050, L501.4020, L503.6005 ####[facility] [address] [place], [address] Erythrocyte distribution width (RBC) [Ratio] 17.7 % High 11.6-14.6 [facility] Comment on above: Performed By: #### L 100.0100, L300.3900, L300.4310, L500.4050, L501.4020, L503.6005 ####[facility] [address] [place], [address] Hematocrit (Bld) [Volume fraction] 32.8 % Low 37-47 [facility] Comment on above: Performed By: #### L 100.0100, L300.3900, L300.4310, L500.4050, L501.4020, L503.6005 ####[facility] [address] [place], [address] Hemoglobin (Bld) [Mass/Vol] 9.9 g/dL Low 12.0-15.0 [facility] Comment on above: Performed By: #### L 100.0100, L300.3900, L300.4310, L500.4050, L501.4020, L503.6005 ####[facility] [address] [place], [address] IG% 0.400 Normal 0.0-0.9 [facility] Comment on above: Result Comment: IG% - Immature Granulocytes (promyelocytes, myelocytes andmetamyelocytes) > 1% indicates that a LEFT SHIFT is Present. Performed By: #### L 100.0100, L300.3900, L300.4310, L500.4050, L501.4020, L503.6005 ####[facility] [address] [place], [address] Lymphocytes/100 WBC (Bld) 24.3 % Normal 19-41 [facility] Comment on above: Performed By: #### L 100.0100, L300.3900, L300.4310, L500.4050, L501.4020, L503.6005 ####[facility] [address] [place], [address] MCH (RBC) [Entitic mass] 25.8 pg Low 27.0-32.0 [facility] Comment on above: Performed By: #### L 100.0100, L300.3900, L300.4310, L500.4050, L501.4020, L503.6005 ####[facility] [address] [place], [address] MCHC (RBC) [Mass/Vol] 30.2 g/dL Low 32-36 [facility] Comment on above: Performed By: #### L 100.0100, L300.3900, L300.4310, L500.4050, L501.4020, L503.6005 ####[facility] [address] [place], [address] MCV (RBC) [Entitic vol] 85.6 fL Normal 81-99 [facility] Comment on above: Performed By: #### L 100.0100, L300.3900, L300.4310, L500.4050, L501.4020, L503.6005 ####[facility] [address] [place], [address] Monocytes/100 WBC (Bld) 7.8 % Normal 0-10 [facility] Comment on above: Performed By: #### L 100.0100, L300.3900, L300.4310, L500.4050, L501.4020, L503.6005 ####[facility] [address] [place], [address] Neutrophils/100 WBC (Bld) 63.9 % Normal 47-70 [facility] Comment on above: Performed By: #### L 100.0100, L300.3900, L300.4310, L500.4050, L501.4020, L503.6005 ####[facility] [address] [place], [address] Nucleated RBC (Bld) [#/Vol] 0 10*3/uL Normal 0-5 [facility] Comment on above: Performed By: #### L 100.0100, L300.3900, L300.4310, L500.4050, L501.4020, L503.6005 ####[facility] [address] [place], [address] Platelet mean volume (Bld) [Entitic vol] 9.1 fL Normal 6.2-12.0 [facility] Comment on above: Performed By: #### L 100.0100, L300.3900, L300.4310, L500.4050, L501.4020, L503.6005 ####[facility] [address] [place], [address] Platelets (Bld) [#/Vol] 239 10*3/uL Normal 150-450 [facility] Comment on above: Performed By: #### L 100.0100, L300.3900, L300.4310, L500.4050, L501.4020, L503.6005 ####[facility] [address] [place], [address] RBC (Bld) [#/Vol] 3.83 10*6/uL Low 4.2-5.4 [facility] Comment on above: Performed By: #### L 100.0100, L300.3900, L300.4310, L500.4050, L501.4020, L503.6005 ####[facility] [address] [place], [address] RDW SD 55.0 fl High 35.1-43.9 [facility] Comment on above: Performed By: #### L 100.0100, L300.3900, L300.4310, L500.4050, L501.4020, L503.6005 ####[facility] [address] [place], [address] WBC (Bld) [#/Vol] 7.7 10*3/uL Normal 4.4-11.0 [facility] Comment on above: Performed By: #### L 100.0100, L300.3900, L300.4310, L500.4050, L501.4020, L503.6005 ####[facility] [address] [place], [address] Absolute Lymph 2.18 X10 3/uL Normal 0.83-4.51 [facility] Comment on above: Order Comment: 514.1 Performed By: #### L 100.0100, L501.8820, L500.4050, L501.6710 ####[facility] [address] [place], [address] Absolute Neut 5.0 X10 3/uL Normal 2.0-7.7 [facility] Comment on above: Order Comment: 514.1 Performed By: #### L 100.0100, L501.8820, L500.4050, L501.6710 ####[facility] [address] [place], [address] Basophils/100 WBC (Bld) 0.7 % Normal 0-1 [facility] Comment on above: Order Comment: 514.1 Performed By: #### L 100.0100, L501.8820, L500.4050, L501.6710 ####[facility] [address] [place], [address] Eosinophils/100 WBC (Bld) 3.8 % Normal 0-5 [facility] Comment on above: Order Comment: 514.1 Performed By: #### L 100.0100, L501.8820, L500.4050, L501.6710 ####[facility] [address] [place], [address] Erythrocyte distribution width (RBC) [Ratio] 17.8 % High 11.6-14.6 [facility] Comment on above: Order Comment: 514.1 Performed By: #### L 100.0100, L501.8820, L500.4050, L501.6710 ####[facility] [address] [place], [address] Hematocrit (Bld) [Volume fraction] 32.6 % Low 37-47 [facility] Comment on above: Order Comment: 514.1 Performed By: #### L 100.0100, L501.8820, L500.4050, L501.6710 ####[facility] [address] [place], [address] Hemoglobin (Bld) [Mass/Vol] 9.7 g/dL Low 12.0-15.0 [facility] Comment on above: Order Comment: 514.1 Performed By: #### L 100.0100, L501.8820, L500.4050, L501.6710 ####[facility] [address] [place], [address] IG% 0.200 Normal 0.0-0.9 [facility] Comment on above: Order Comment: 514.1 Result Comment: IG% - Immature Granulocytes (promyelocytes, myelocytes andmetamyelocytes) > 1% indicates that a LEFT SHIFT is Present. Performed By: #### L 100.0100, L501.8820, L500.4050, L501.6710 ####[facility] [address] [place], [address] Lymphocytes/100 WBC (Bld) 26.6 % Normal 19-41 [facility] Comment on above: Order Comment: 514.1 Performed By: #### L 100.0100, L501.8820, L500.4050, L501.6710 ####[facility] [address] [place], [address] MCH (RBC) [Entitic mass] 25.7 pg Low 27.0-32.0 [facility] Comment on above: Order Comment: 514.1 Performed By: #### L 100.0100, L501.8820, L500.4050, L501.6710 ####[facility] [address] [place], [address] MCHC (RBC) [Mass/Vol] 29.8 g/dL Low 32-36 [facility] Comment on above: Order Comment: 514.1 Performed By: #### L 100.0100, L501.8820, L500.4050, L501.6710 ####[facility] [address] [place], [address] MCV (RBC) [Entitic vol] 86.2 fL Normal 81-99 [facility] Comment on above: Order Comment: 514.1 Performed By: #### L 100.0100, L501.8820, L500.4050, L501.6710 ####[facility] [address] [place], [address] Monocytes/100 WBC (Bld) 7.4 % Normal 0-10 [facility] Comment on above: Order Comment: 514.1 Performed By: #### L 100.0100, L501.8820, L500.4050, L501.6710 ####[facility] [address] [place], [address] Neutrophils/100 WBC (Bld) 61.3 % Normal 47-70 [facility] Comment on above: Order Comment: 514.1 Performed By: #### L 100.0100, L501.8820, L500.4050, L501.6710 ####[facility] [address] [place], [address] Nucleated RBC (Bld) [#/Vol] 0 10*3/uL Normal 0-5 [facility] Comment on above: Order Comment: 514.1 Performed By: #### L 100.0100, L501.8820, L500.4050, L501.6710 ####[facility] [address] [place], [address] Platelet mean volume (Bld) [Entitic vol] 9.8 fL Normal 6.2-12.0 [facility] Comment on above: Order Comment: 514.1 Performed By: #### L 100.0100, L501.8820, L500.4050, L501.6710 ####[facility] [address] [place], [address] Platelets (Bld) [#/Vol] 220 10*3/uL Normal 150-450 [facility] Comment on above: Order Comment: 514.1 Performed By: #### L 100.0100, L501.8820, L500.4050, L501.6710 ####[facility] [address] [place], [address] RBC (Bld) [#/Vol] 3.78 10*6/uL Low 4.2-5.4 [facility] Comment on above: Order Comment: 514.1 Performed By: #### L 100.0100, L501.8820, L500.4050, L501.6710 ####[facility] [address] [place], [address] RDW SD 55.7 fl High 35.1-43.9 [facility] Comment on above: Order Comment: 514.1 Performed By: #### L 100.0100, L501.8820, L500.4050, L501.6710 ####[facility] [address] [place], [address] WBC (Bld) [#/Vol] 8.2 10*3/uL Normal 4.4-11.0 [facility] Comment on above: Order Comment: 514.1 Performed By: #### L 100.0100, L501.8820, L500.4050, L501.6710 ####[facility] [address] [place], [address] CRPon 12-31-2023 C-REACTIVE PROT 49.30 mg/L High 0.0-3.0 [facility] Comment on above: Order Comment: 514.1 Result Comment: C-Re active Protein (CRP) provides useful information for thediagnosis, therapy and monitoring of inflammatory processesand associated diseases. For the evaluation of Relative Riskfor Cardiovascular Disease, a High Sensitivity CRP (HSCRP)should be ordered. Performed By: #### L 100.0100, L501.8820, L500.4050, L501.6710 ####[facility] [address] [place], [address] Chest 1 View (Portable)on Chest 1 View (Portable) Normal [facility] Comprehensive Metabolic Prof ilon 12-31-2023 Albumin [Mass/Vol] 1.4 g/dL Low 3.2-5.0 [facility] Comment on above: Order Comment: 'TROP ' Serial specimen #1, #2 or #3: 1 Performed By: #### L 100.0100, L300.3900, L300.4310, L500.4050, L501.4020, L503.6005 ####[facility] [address] [place], [address] Albumin/Globulin [Mass ratio] 0.4 {ratio} Low 0.9-2.4 [facility] Comment on above: Order Comment: 'TROP ' Serial specimen #1, #2 or #3: 1 Performed By: #### L 100.0100, L300.3900, L300.4310, L500.4050, L501.4020, L503.6005 ####[facility] [address] [place], [address] ALK P 137 U/L High 45-117 [facility] Comment on above: Order Comment: 'TROP ' Serial specimen #1, #2 or #3: 1 Performed By: #### L 100.0100, L300.3900, L300.4310, L500.4050, L501.4020, L503.6005 ####[facility] [address] [place], [address] ALT [Catalytic activity/Vol] 13 U/L Normal 13-56 [facility] Comment on above: Order Comment: 'TROP ' Serial specimen #1, #2 or #3: 1 Performed By: #### L 100.0100, L300.3900, L300.4310, L500.4050, L501.4020, L503.6005 ####[facility] [address] [place], [address] AST [Catalytic activity/Vol] 21 U/L Normal 15-37 [facility] Comment on above: Order Comment: 'TROP ' Serial specimen #1, #2 or #3: 1 Performed By: #### L 100.0100, L300.3900, L300.4310, L500.4050, L501.4020, L503.6005 ####[facility] [address] [place], [address] Bilirubin [Mass/Vol] 0.30 mg/dL Normal 0.20-1.00 [facility] Comment on above: Order Comment: 'TROP ' Serial specimen #1, #2 or #3: 1 Result Comment: For patients on eltrombopag therapy, use of Dimension [place] TBIL is not recommended. Performed By: #### L 100.0100, L300.3900, L300.4310, L500.4050, L501.4020, L503.6005 ####[facility] [address] [place], [address] BUN/CRE 37.0 RATIO High 10-20 [facility] Comment on above: Order Comment: 'TROP ' Serial specimen #1, #2 or #3: 1 Performed By: #### L 100.0100, L300.3900, L300.4310, L500.4050, L501.4020, L503.6005 ####[facility] [address] [place], [address] CA,Total 7.8 mg/dL Low 8.5-10.1 [facility] Comment on above: Order Comment: 'TROP ' Serial specimen #1, #2 or #3: 1 Performed By: #### L 100.0100, L300.3900, L300.4310, L500.4050, L501.4020, L503.6005 ####[facility] [address] [place], [address] Chloride [Moles/Vol] 106 mmol/L Normal 98-107 [facility] Comment on above: Order Comment: 'TROP ' Serial specimen #1, #2 or #3: 1 Performed By: #### L 100.0100, L300.3900, L300.4310, L500.4050, L501.4020, L503.6005 ####[facility] [address] [place], [address] CO2 [Moles/Vol] 32.0 mmol/L Normal 21.0-32.0 [facility] Comment on above: Order Comment: 'TROP ' Serial specimen #1, #2 or #3: 1 Performed By: #### L 100.0100, L300.3900, L300.4310, L500.4050, L501.4020, L503.6005 ####[facility] [address] [place], [address] Creatinine [Mass/Vol] 0.54 mg/dL Low 0.55-1.02 [facility] Comment on above: Order Comment: 'TROP ' Serial specimen #1, #2 or #3: 1 Result Comment: The validity of the calculated GFR GFRAA in patients over70 years has not been determined. Clinical correlation isessential. Performed By: #### L 100.0100, L300.3900, L300.4310, L500.4050, L501.4020, L503.6005 ####[facility] [address] [place], [place], [id number]) EST GFR - AA 141 mL/min Normal >60 [facility] Comment on above: Order Comment: 'TROP ' Serial specimen #1, #2 or #3: 1 Result Comment: Afri can [place] GFR Calc Performed By: #### L 100.0100, L300.3900, L300.4310, L500.4050, L501.4020, L503.6005 ####[facility] [address] [place], [address] GAP 4 Low 5-15 [facility] Comment on above: Order Comment: 'TROP ' Serial specimen #1, #2 or #3: 1 Performed By: #### L 100.0100, L300.3900, L300.4310, L500.4050, L501.4020, L503.6005 ####[facility] [address] [place], [address] GFR/1.73 sq M.predicted among non-blacks MDRD (S/P/Bld) [Vol rate/Area] 117 mL/min/{1.73_m2} Normal >60 [facility] Comment on above: Order Comment: 'TROP ' Serial specimen #1, #2 or #3: 1 Result Comment: Non- GFR Calc Performed By: #### L 100.0100, L300.3900, L300.4310, L500.4050, L501.4020, L503.6005 ####[facility] [address] [place], [address] Globulin (S) [Mass/Vol] 3.3 g/dL Normal 2.2-4.2 [facility] Comment on above: Order Comment: 'TROP ' Serial specimen #1, #2 or #3: 1 Performed By: #### L 100.0100, L300.3900, L300.4310, L500.4050, L501.4020, L503.6005 ####[facility] [address] [place], [address] Glucose [Mass/Vol] 139 mg/dL High 74-106 [facility] Comment on above: Order Comment: 'TROP ' Serial specimen #1, #2 or #3: 1 Result Comment: Fast ing Glucose result greater than or equal to 126 mg/dLsuggests DIABETES MELLITUS per A.D.A. criteria. Performed By: #### L 100.0100, L300.3900, L300.4310, L500.4050, L501.4020, L503.6005 ####[facility] [address] [place], [address] Potassium [Moles/Vol] 2.6 mmol/L Invalid Interpretation Code 3.5-5.1 [facility] Comment on above: Order Comment: 'TROP ' Serial specimen #1, #2 or #3: 1 Result Comment: Crit ical Result(s) Called at: 18:38:24 12/31/2023 by:[facility] Results read back by same. Performed By: #### L 100.0100, L300.3900, L300.4310, L500.4050, L501.4020, L503.6005 ####[facility] [address] [place], [address] Sodium [Moles/Vol] 142 mmol/L Normal 136-145 [facility] Comment on above: Order Comment: 'TROP ' Serial specimen #1, #2 or #3: 1 Performed By: #### L 100.0100, L300.3900, L300.4310, L500.4050, L501.4020, L503.6005 ####[facility] [address] [place], [address] T PROT 4.7 g/dL Low 6.4-8.2 [facility] Comment on above: Order Comment: 'TROP ' Serial specimen #1, #2 or #3: 1 Performed By: #### L 100.0100, L300.3900, L300.4310, L500.4050, L501.4020, L503.6005 ####[facility] [address] [place], [address] Urea nitrogen [Mass/Vol] 20 mg/dL High 7-18 [facility] Comment on above: Order Comment: 'TROP ' Serial specimen #1, #2 or #3: 1 Performed By: #### L 100.0100, L300.3900, L300.4310, L500.4050, L501.4020, L503.6005 ####[facility] [address] [place], [address] Albumin [Mass/Vol] 1.4 g/dL Low 3.2-5.0 [facility] Comment on above: Order Comment: 514.1 Performed By: #### L 100.0100, L501.8820, L500.4050, L501.6710 ####[facility] [address] [place], [address] Albumin/Globulin [Mass ratio] 0.4 {ratio} Low 0.9-2.4 [facility] Comment on above: Order Comment: 514.1 Performed By: #### L 100.0100, L501.8820, L500.4050, L501.6710 ####[facility] [address] [place], [address] ALK P 139 U/L High 45-117 [facility] Comment on above: Order Comment: 514.1 Performed By: #### L 100.0100, L501.8820, L500.4050, L501.6710 ####[facility] [address] [place], [address] ALT [Catalytic activity/Vol] 15 U/L Normal 13-56 [facility] Comment on above: Order Comment: 514.1 Performed By: #### L 100.0100, L501.8820, L500.4050, L501.6710 ####[facility] [address] [place], [address] AST [Catalytic activity/Vol] 21 U/L Normal 15-37 [facility] Comment on above: Order Comment: 514.1 Performed By: #### L 100.0100, L501.8820, L500.4050, L501.6710 ####[facility] [address] [place], [address] Bilirubin [Mass/Vol] 0.30 mg/dL Normal 0.20-1.00 [facility] Comment on above: Order Comment: 514.1 Result Comment: For patients on eltrombopag therapy, use of Dimension [place] TBIL is not recommended. Performed By: #### L 100.0100, L501.8820, L500.4050, L501.6710 ####[facility] [address] [place], [address] BUN/CRE 36.6 RATIO High 10-20 [facility] Comment on above: Order Comment: 514.1 Performed By: #### L 100.0100, L501.8820, L500.4050, L501.6710 ####[facility] [address] [place], [address] CA,Total 7.7 mg/dL Low 8.5-10.1 [facility] Comment on above: Order Comment: 514.1 Performed By: #### L 100.0100, L501.8820, L500.4050, L501.6710 ####[facility] [address] [place], [address] Chloride [Moles/Vol] 106 mmol/L Normal 98-107 [facility] Comment on above: Order Comment: 514.1 Performed By: #### L 100.0100, L501.8820, L500.4050, L501.6710 ####[facility] [address] [place], [address] CO2 [Moles/Vol] 29.0 mmol/L Normal 21.0-32.0 [facility] Comment on above: Order Comment: 514.1 Performed By: #### L 100.0100, L501.8820, L500.4050, L501.6710 ####[facility] [address] [place], [address] Creatinine [Mass/Vol] 0.49 mg/dL Low 0.55-1.02 [facility] Comment on above: Order Comment: 514.1 Result Comment: The validity of the calculated GFR GFRAA in patients over70 years has not been determined. Clinical correlation isessential. Performed By: #### L 100.0100, L501.8820, L500.4050, L501.6710 ####[facility] [address] [place], [address] EST GFR - AA 157 mL/min Normal >60 [facility] Comment on above: Order Comment: 514.1 Result Comment: Afri can Niuean GFR Calc Performed By: #### L 100.0100, L501.8820, L500.4050, L501.6710 ####[facility] [address] [place], [address] GAP 7 Normal 5-15 [facility] Comment on above: Order Comment: 514.1 Performed By: #### L 100.0100, L501.8820, L500.4050, L501.6710 ####[facility] [address] [place], [address] GFR/1.73 sq M.predicted among non-blacks MDRD (S/P/Bld) [Vol rate/Area] 130 mL/min/{1.73_m2} Normal >60 [facility] Comment on above: Order Comment: 514.1 Result Comment: Non- GFR Calc Performed By: #### L 100.0100, L501.8820, L500.4050, L501.6710 ####[facility] [address] [place], [address] Globulin (S) [Mass/Vol] 3.3 g/dL Normal 2.2-4.2 [facility] Comment on above: Order Comment: 514.1 Performed By: #### L 100.0100, L501.8820, L500.4050, L501.6710 ####[facility] [address] [place], [address] Glucose [Mass/Vol] 80 mg/dL Normal 74-106 [facility] Comment on above: Order Comment: 514.1 Performed By: #### L 100.0100, L501.8820, L500.4050, L501.6710 ####[facility] [address] [place], [address] Potassium [Moles/Vol] 2.9 mmol/L Low 3.5-5.1 [facility] Comment on above: Order Comment: 514.1 Performed By: #### L 100.0100, L501.8820, L500.4050, L501.6710 ####[facility] [address] [place], [address] Sodium [Moles/Vol] 142 mmol/L Normal 136-145 [facility] Comment on above: Order Comment: 514.1 Performed By: #### L 100.0100, L501.8820, L500.4050, L501.6710 ####[facility] [address] [place], [address] T PROT 4.7 g/dL Low 6.4-8.2 [facility] Comment on above: Order Comment: 514.1 Performed By: #### L 100.0100, L501.8820, L500.4050, L501.6710 ####[facility] [address] [place], [address] Urea nitrogen [Mass/Vol] 18 mg/dL Normal 7-18 [facility] Comment on above: Order Comment: 514.1 Performed By: #### L 100.0100, L501.8820, L500.4050, L501.6710 ####[facility] [address] [place], [address] Emergency Department Summary on 12-31-2023 Emergency Department Summary Normal [facility] Folates, (Folic Acid)on 12-09 FOLATES 10.10 ng/mL Normal 3.1-55.4 [facility] Comment on above: Order Comment: Has P fabio had X-rays with Contrast this admission? NN Performed By: #### L 505.5000, L506.0250, L501.9100 ####[facility] [address] [place], [address] H AND P Exam - Hospitaliston 12-31-2023 H&P Exam - Hospitalist Normal [facility] L501.4020on 12-31-2023 TROPONIN-I HS 29 pg/mL Normal 3.0-54.0 [facility] Comment on above: Order Comment: 'TROP ' Serial specimen #1, #2 or #3: 1 Result Comment: Plea se Note: New Test Units and Gender Specific Reference Ranges. For more information see Policy Stat Procedure [place] High Sensitivity Troponin (TNIH) and attachments. Performed By: #### L 100.0100, L300.3900, L300.4310, L500.4050, L501.4020, L503.6005 ####[facility] [address], [address] Lactic Acidon 12-31-2023 Lactate [Moles/Vol] 1.0 mmol/L Normal 0.4-1.9 [facility] Comment on above: Order Comment: Y Performed By: #### L 100.0100, L300.3900, L300.4310, L500.4050, L501.4020, L503.6005 ####[facility] [address], [address] M100.678on 12-31-2023 M100.678 Normal [facility] Comment on above: Performed By: #### L 400.0001, M100.678, M100.2200 ####[facility] [address] [place], [address] Magnesiumon 12-31-2023 Magnesium [Mass/Vol] 1.1 mg/dL Low 1.6-2.6 [facility] Comment on above: Performed By: #### L 501.5200 ####[facility] [address] [place], [address] Partial Thromboplast Timeon 12-31-2023 aPTT Coag (Bld) [Time] 39.9 s High 24.1-36.2 [facility] Comment on above: Performed By: #### L 100.0100, L300.3900, L300.4310, L500.4050, L501.4020, L503.6005 ####[facility] [address] [place], [address] Prothrombin Time w/INRon INR Coag (PPP) [Relative time] 1.8 {INR} Normal [facility] Comment on above: Performed By: #### L 100.0100, L300.3900, L300.4310, L500.4050, L501.4020, L503.6005 ####[facility] [address] [place], [address] PT Coag (PPP) [Time] 20.9 s High 11.7-14.9 [facility] Comment on above: Performed By: #### L 100.0100, L300.3900, L300.4310, L500.4050, L501.4020, L503.6005 ####[facility] [address] [place], [address] Urinalysis, Completeon 12-30 BACTERIA 2+ /hpf Normal None Seen [facility] Comment on above: Order Comment: COLOR OF URINE MAY AFFECT DIPSTICK RESULTS.CATHETER SPECIMEN Performed By: #### L 400.0001, M100.678, M100.2200 ####[facility] [address] [place], [address] Mucus Ql (Urine sed) 2+ /hpf Normal [facility] Comment on above: Order Comment: COLOR OF URINE MAY AFFECT DIPSTICK RESULTS.CATHETER SPECIMEN Performed By: #### L 400.0001, M100.678, M100.2200 ####[facility] [address] [place], [address] RBC 0-5 SEEN Normal 0-5 [facility] Comment on above: Order Comment: COLOR OF URINE MAY AFFECT DIPSTICK RESULTS.CATHETER SPECIMEN Performed By: #### L 400.0001, 00.8, ####[facility] [address] [place], [address] YEAST 2+ /hpf Normal None Seen [facility] Comment on above: Order Comment: COLOR OF URINE MAY AFFECT DIPSTICK RESULTS.CATHETER SPECIMEN Performed By: #### L 400.0001, , ####[facility] [address] [place], [address] WBC 25-50 SEEN Normal 0-5 [facility] Comment on above: Order Comment: COLOR OF URINE MAY AFFECT DIPSTICK RESULTS.CATHETER SPECIMEN Performed By: #### L 400.0001, , ####[facility] [address] [place], [address] BILIRUBIN URINE Negative Normal Negative [facility] Comment on above: Order Comment: COLOR OF URINE MAY AFFECT DIPSTICK RESULTS.CATHETER SPECIMEN Performed By: #### L 400.0001, , ####[facility] [address] [place], [address] Clarity (U) Clear Normal Clear [facility] Comment on above: Order Comment: COLOR OF URINE MAY AFFECT DIPSTICK RESULTS.CATHETER SPECIMEN Performed By: #### L 400.0001, M100.8, ####[facility] [address] [place], [address] Color (U) Rita Normal Yellow [facility] Comment on above: Order Comment: COLOR OF URINE MAY AFFECT DIPSTICK RESULTS.CATHETER SPECIMEN Performed By: #### L 400.0001, M18, M100.2200 ####[facility] [address] [place], [address] GLUCOSE, UR Normal Normal Normal [facility] Comment on above: Order Comment: COLOR OF URINE MAY AFFECT DIPSTICK RESULTS.CATHETER SPECIMEN Performed By: #### L 400.0001, M100.678, M100.2200 ####[facility] [address] [place], [address] KETONE UR Negative Normal Negative [facility] Comment on above: Order Comment: COLOR OF URINE MAY AFFECT DIPSTICK RESULTS.CATHETER SPECIMEN Performed By: #### L 400.0001, M100.678, M100.2200 ####[facility] [address] [place], [address] LEUK ESTERASE 100 /ul Abnormal Negative [facility] Comment on above: Order Comment: COLOR OF URINE MAY AFFECT DIPSTICK RESULTS.CATHETER SPECIMEN Performed By: #### L 400.0001, M100.678, M100.0 ####[facility] [address] [place], [address] Nitrite Ql (U) Negative Normal Negative [facility] Comment on above: Order Comment: COLOR OF URINE MAY AFFECT DIPSTICK RESULTS.CATHETER SPECIMEN Performed By: #### L 400.0001, M100.678, M100.2200 ####[facility] [address] [place], [address] OCCULT BLOOD-UR Negative Normal Negative [facility] Comment on above: Order Comment: COLOR OF URINE MAY AFFECT DIPSTICK RESULTS.CATHETER SPECIMEN Performed By: #### L 400.0001, M100.678, M100.2200 ####[facility] [address] [place], [address] pH UR 6.0 Normal 5.0 - 8.0 [facility] Comment on above: Order Comment: COLOR OF URINE MAY AFFECT DIPSTICK RESULTS.CATHETER SPECIMEN Performed By: #### L 400.0001, M100.678, M100.2200 ####[facility] [address] [place], [address] PROT DIPSTX 30 mg/dl Abnormal Negative [facility] Comment on above: Order Comment: COLOR OF URINE MAY AFFECT DIPSTICK RESULTS.CATHETER SPECIMEN Performed By: #### L 400.0001, M100.678, M100.2200 ####[facility] [address] [place], [address] SP.GR. DIPSTX 1.020 Normal 1.002-1.030 [facility] Comment on above: Order Comment: COLOR OF URINE MAY AFFECT DIPSTICK RESULTS.CATHETER SPECIMEN Performed By: #### L 400.0001, M100.678, M100.2200 ####[facility] [address] [place], [address] UROBILI Normal Normal Normal [facility] Comment on above: Order Comment: COLOR OF URINE MAY AFFECT DIPSTICK RESULTS.CATHETER SPECIMEN Performed By: #### L 400.0001, M100.678, M100.2200 ####[facility] [address] [place], [address] EPI,SQUAMOUS 0 SEEN Normal 5-10 [facility] Comment on above: Order Comment: COLOR OF URINE MAY AFFECT DIPSTICK RESULTS.CATHETER SPECIMEN Performed By: #### L 400.0001, M100.678, M100.2200 ####[facility] [address] [place], [address] Vancomycin, Trough Levelon 0 12-31-2023 VANCO, TROUGH 18.5 ug/mL High 5.0-15.0 [facility] Comment on above: Order Comment: 514.1 0500 Result Comment: VANC OMYCIN STANDARED DRUG THERAPY TROUGH LEVEL: 5.0 - 15.0 mg/LVANCOMYCIN HIGH INTENSITY THERAPY TROUGH LEVEL: 15.0 - 20.0 mg/LHigh Intensity therapy recommended for serious lifethreatening infections include:- Wwollsnpmj-Efgkvsatmohy-Cxmkiulsd (Ventilator/Healtcare Associated)-SepsisPLEASE CONTACT PHARMACY SERVICES (#2885) FOR INTERPRETATIONOF RESULTS. Performed By: #### L 100.0100, L501.8820, L500.4050, L501.6710 ####[facility] [address] [place], [address] Vitamin B12on 12-31-2023 Cobalamin (Vitamin B12) [Mass/Vol] 1036 pg/mL High 211-911 [facility] Comment on above: Performed By: #### L 503.0105 ####[facility] [address] [place], [address] CBC W/Diff, Automatedon 12-09 Absolute Lymph 2.21 X10 3/uL Normal 0.83-4.51 [facility] Comment on above: Order Comment: 514-1 Performed By: #### L 100.0100, L501.8820, L500.4050, L501.6710 ####[facility] [address] [place], [address] Absolute Neut 4.9 X10 3/uL Normal 2.0-7.7 [facility] Comment on above: Order Comment: 514-1 Performed By: #### L 100.0100, L501.8820, L500.4050, L501.6710 ####[facility] [address] [place], [address] Basophils/100 WBC (Bld) 0.9 % Normal 0-1 [facility] Comment on above: Order Comment: 514-1 Performed By: #### L 100.0100, L501.8820, L500.4050, L501.6710 ####[facility] [address] [place], [address] Eosinophils/100 WBC (Bld) 2.1 % Normal 0-5 [facility] Comment on above: Order Comment: 514-1 Performed By: #### L 100.0100, L501.8820, L500.4050, L501.6710 ####[facility] [address] [place], [address] Erythrocyte distribution width (RBC) [Ratio] 17.6 % High 11.6-14.6 [facility] Comment on above: Order Comment: 514-1 Performed By: #### L 100.0100, L501.8820, L500.4050, L501.6710 ####[facility] [address] [place], [address] Hematocrit (Bld) [Volume fraction] 32.8 % Low 37-47 [facility] Comment on above: Order Comment: 514-1 Performed By: #### L 100.0100, L501.8820, L500.4050, L501.6710 ####[facility] [address] [place], [address] Hemoglobin (Bld) [Mass/Vol] 10.0 g/dL Low 12.0-15.0 [facility] Comment on above: Order Comment: 514-1 Performed By: #### L 100.0100, L501.8820, L500.4050, L501.6710 ####[facility] [address] [place], [address] IG% 0.500 Normal 0.0-0.9 [facility] Comment on above: Order Comment: 514-1 Result Comment: IG% - Immature Granulocytes (promyelocytes, myelocytes andmetamyelocytes) > 1% indicates that a LEFT SHIFT is Present. Performed By: #### L 100.0100, L501.8820, L500.4050, L501.6710 ####[facility] [address] [place], [address] Lymphocytes/100 WBC (Bld) 27.4 % Normal 19-41 [facility] Comment on above: Order Comment: 514-1 Performed By: #### L 100.0100, L501.8820, L500.4050, L501.6710 ####[facility] [address] [place], [address] MCH (RBC) [Entitic mass] 25.9 pg Low 27.0-32.0 [facility] Comment on above: Order Comment: 514-1 Performed By: #### L 100.0100, L501.8820, L500.4050, L501.6710 ####[facility] [address] [place], [address] MCHC (RBC) [Mass/Vol] 30.5 g/dL Low 32-36 [facility] Comment on above: Order Comment: 514-1 Performed By: #### L 100.0100, L501.8820, L500.4050, L501.6710 ####[facility] [address] [place], [address] MCV (RBC) [Entitic vol] 85.0 fL Normal 81-99 [facility] Comment on above: Order Comment: 514-1 Performed By: #### L 100.0100, L501.8820, L500.4050, L501.6710 ####[facility] [address] [place], [address] Monocytes/100 WBC (Bld) 8.1 % Normal 0-10 [facility] Comment on above: Order Comment: 514-1 Performed By: #### L 100.0100, L501.8820, L500.4050, L501.6710 ####[facility] [address] [place], [address] Neutrophils/100 WBC (Bld) 61.0 % Normal 47-70 [facility] Comment on above: Order Comment: 514-1 Performed By: #### L 100.0100, L501.8820, L500.4050, L501.6710 ####[facility] [address] [place], [address] Nucleated RBC (Bld) [#/Vol] 0 10*3/uL Normal 0-5 [facility] Comment on above: Order Comment: 514-1 Performed By: #### L 100.0100, L501.8820, L500.4050, L501.6710 ####[facility] [address] [place], [address] Platelet mean volume (Bld) [Entitic vol] 9.9 fL Normal 6.2-12.0 [facility] Comment on above: Order Comment: 514-1 Performed By: #### L 100.0100, L501.8820, L500.4050, L501.6710 ####[facility] [address] [place], [address] Platelets (Bld) [#/Vol] 245 10*3/uL Normal 150-450 [facility] Comment on above: Order Comment: 514-1 Performed By: #### L 100.0100, L501.8820, L500.4050, L501.6710 ####[facility] [address] [place], [address] RBC (Bld) [#/Vol] 3.86 10*6/uL Low 4.2-5.4 [facility] Comment on above: Order Comment: 514-1 Performed By: #### L 100.0100, L501.8820, L500.4050, L501.6710 ####[facility] [address] [place], [address] RDW SD 54.4 fl High 35.1-43.9 [facility] Comment on above: Order Comment: 514-1 Performed By: #### L 100.0100, L501.8820, L500.4050, L501.6710 ####[facility] [address] [place], [address] WBC (Bld) [#/Vol] 8.1 10*3/uL Normal 4.4-11.0 [facility] Comment on above: Order Comment: 514-1 Performed By: #### L 100.0100, L501.8820, L500.4050, L501.6710 ####[facility] [address] [place], [address] CRPon 12-28-2023 C-REACTIVE PROT 39.80 mg/L High 0.0-3.0 [facility] Comment on above: Order Comment: 514-1 Result Comment: C-Re active Protein (CRP) provides useful information for thediagnosis, therapy and monitoring of inflammatory processesand associated diseases. For the evaluation of Relative Riskfor Cardiovascular Disease, a High Sensitivity CRP (HSCRP)should be ordered. Performed By: #### L 100.0100, L501.8820, L500.4050, L501.6710 ####[facility] [address] [place], [address] Comprehensive Metabolic Prof ilon 12-28-2023 Albumin [Mass/Vol] 1.4 g/dL Low 3.2-5.0 [facility] Comment on above: Order Comment: 514-1 Performed By: #### L 100.0100, L501.8820, L500.4050, L501.6710 ####[facility] [address] [place], [address] Albumin/Globulin [Mass ratio] 0.4 {ratio} Low 0.9-2.4 [facility] Comment on above: Order Comment: 514-1 Performed By: #### L 100.0100, L501.8820, L500.4050, L501.6710 ####[facility] [address] [place], [address] ALK P 140 U/L High 45-117 [facility] Comment on above: Order Comment: 514-1 Performed By: #### L 100.0100, L501.8820, L500.4050, L501.6710 ####[facility] [address] [place], [address] ALT [Catalytic activity/Vol] 13 U/L Normal 13-56 [facility] Comment on above: Order Comment: 514-1 Performed By: #### L 100.0100, L501.8820, L500.4050, L501.6710 ####[facility] [address] [place], [address] AST [Catalytic activity/Vol] 29 U/L Normal 15-37 [facility] Comment on above: Order Comment: 514-1 Result Comment: Slig ht Hemolysis, Result may be falsely increased. Performed By: #### L 100.0100, L501.8820, L500.4050, L501.6710 ####[facility] [address] [place], [address] Bilirubin [Mass/Vol] 0.30 mg/dL Normal 0.20-1.00 [facility] Comment on above: Order Comment: 514-1 Result Comment: For patients on eltrombopag therapy, use of Dimension [place] TBIL is not recommended. Performed By: #### L 100.0100, L501.8820, L500.4050, L501.6710 ####[facility] [address] [place], [address] BUN/CRE 31.4 RATIO High 10-20 [facility] Comment on above: Order Comment: 514-1 Performed By: #### L 100.0100, L501.8820, L500.4050, L501.6710 ####[facility] [address] [place], [address] CA,Total 7.5 mg/dL Low 8.5-10.1 [facility] Comment on above: Order Comment: 514-1 Performed By: #### L 100.0100, L501.8820, L500.4050, L501.6710 ####[facility] [address] [place], [address] Chloride [Moles/Vol] 105 mmol/L Normal 98-107 [facility] Comment on above: Order Comment: 514-1 Performed By: #### L 100.0100, L501.8820, L500.4050, L501.6710 ####[facility] [address] [place], [address] CO2 [Moles/Vol] 28.0 mmol/L Normal 21.0-32.0 [facility] Comment on above: Order Comment: 514-1 Performed By: #### L 100.0100, L501.8820, L500.4050, L501.6710 ####[facility] [address] [place], [address] Creatinine [Mass/Vol] 0.57 mg/dL Normal 0.55-1.02 [facility] Comment on above: Order Comment: 514-1 Result Comment: The validity of the calculated GFR GFRAA in patients over70 years has not been determined. Clinical correlation isessential. Performed By: #### L 100.0100, L501.8820, L500.4050, L501.6710 ####[facility] [address] [place], [address] EST GFR - AA 132 mL/min Normal >60 [facility] Comment on above: Order Comment: 514-1 Result Comment: Afri can Niuean GFR Calc Performed By: #### L 100.0100, L501.8820, L500.4050, L501.6710 ####[facility] [address] [place], [address] GAP 7 Normal 5-15 [facility] Comment on above: Order Comment: 514-1 Performed By: #### L 100.0100, L501.8820, L500.4050, L501.6710 ####[facility] [address] [place], [address] GFR/1.73 sq M.predicted among non-blacks MDRD (S/P/Bld) [Vol rate/Area] 109 mL/min/{1.73_m2} Normal >60 [facility] Comment on above: Order Comment: 514-1 Result Comment: Non- GFR Calc Performed By: #### L 100.0100, L501.8820, L500.4050, L501.6710 ####[facility] [address] [place], [address] Globulin (S) [Mass/Vol] 3.3 g/dL Normal 2.2-4.2 [facility] Comment on above: Order Comment: 514-1 Performed By: #### L 100.0100, L501.8820, L500.4050, L501.6710 ####[facility] [address] [place], [address] Glucose [Mass/Vol] 106 mg/dL Normal 74-106 [facility] Comment on above: Order Comment: 514-1 Result Comment: Fast ing Glucose result from 100 to 125 mg/dLsuggests IMPAIRED HOMEOSTASIS per A.D.A. criteria. Performed By: #### L 100.0100, L501.8820, L500.4050, L501.6710 ####[facility] [address] [place], [address] Potassium [Moles/Vol] 2.7 mmol/L Invalid Interpretation Code 3.5-5.1 [facility] Comment on above: Order Comment: 514-1 Result Comment: Slig ht Hemolysis, Result may be falsely increased.CriticalResult(s) Called at: 08:46:14 12/28/2023 by: Jeri Duong. Results read back by same. Performed By: #### L 100.0100, L501.8820, L500.4050, L501.6710 ####[facility] [address] [place], [address] Sodium [Moles/Vol] 140 mmol/L Normal 136-145 [facility] Comment on above: Order Comment: 514-1 Performed By: #### L 100.0100, L501.8820, L500.4050, L501.6710 ####[facility] [address] [place], [address] T PROT 4.7 g/dL Low 6.4-8.2 [facility] Comment on above: Order Comment: 514-1 Performed By: #### L 100.0100, L501.8820, L500.4050, L501.6710 ####[facility] [address] [place], [address] Urea nitrogen [Mass/Vol] 18 mg/dL Normal 7-18 [facility] Comment on above: Order Comment: 514-1 Performed By: #### L 100.0100, L501.8820, L500.4050, L501.6710 ####[facility] [address] [place], [address] Vancomycin, Trough Levelon 0 12-28-2023 VANCO, TROUGH 12.8 ug/mL Normal 5.0-15.0 [facility] Comment on above: Order Comment: 514-1 0730 Result Comment: VANC OMYCIN STANDARED DRUG THERAPY TROUGH LEVEL: 5.0 - 15.0 mg/LVANCOMYCIN HIGH INTENSITY THERAPY TROUGH LEVEL: 15.0 - 20.0 mg/LHigh Intensity therapy recommended for serious lifethreatening infections include:- Blrbpvqzna-Eljcwytowhlv-Lvowornmd (Ventilator/Healtcare Associated)-SepsisPLEASE CONTACT PHARMACY SERVICES (#9133) FOR INTERPRETATIONOF RESULTS. Performed By: #### L 100.0100, L501.8820, L500.4050, L501.6710 ####[facility] [address] [place], [address] CBC W/Diff, Automatedon - Absolute Lymph 1.74 X10 3/uL Normal 0.83-4.51 [facility] Comment on above: Order Comment: 514.1 Performed By: #### L 100.0100, L501.8820, L500.4050, L501.6710 ####[facility] [address] [place], [address] Absolute Neut 5.8 X10 3/uL Normal 2.0-7.7 [facility] Comment on above: Order Comment: 514.1 Performed By: #### L 100.0100, L501.8820, L500.4050, L501.6710 ####[facility] [address] [place], [address] Basophils/100 WBC (Bld) 1.0 % Normal 0-1 [facility] Comment on above: Order Comment: 514.1 Performed By: #### L 100.0100, L501.8820, L500.4050, L501.6710 ####[facility] [address] [place], [address] Eosinophils/100 WBC (Bld) 1.4 % Normal 0-5 [facility] Comment on above: Order Comment: 514.1 Performed By: #### L 100.0100, L501.8820, L500.4050, L501.6710 ####[facility] [address] [place], [address] Erythrocyte distribution width (RBC) [Ratio] 17.6 % High 11.6-14.6 [facility] Comment on above: Order Comment: 514.1 Performed By: #### L 100.0100, L501.8820, L500.4050, L501.6710 ####[facility] [address] [place], [address] Hematocrit (Bld) [Volume fraction] 36.1 % Low 37-47 [facility] Comment on above: Order Comment: 514.1 Performed By: #### L 100.0100, L501.8820, L500.4050, L501.6710 ####[facility] [address] [place], [address] Hemoglobin (Bld) [Mass/Vol] 10.5 g/dL Low 12.0-15.0 [facility] Comment on above: Order Comment: 514.1 Performed By: #### L 100.0100, L501.8820, L500.4050, L501.6710 ####[facility] [address] [place], [address] IG% 0.400 Normal 0.0-0.9 [facility] Comment on above: Order Comment: 514.1 Result Comment: IG% - Immature Granulocytes (promyelocytes, myelocytes andmetamyelocytes) > 1% indicates that a LEFT SHIFT is Present. Performed By: #### L 100.0100, L501.8820, L500.4050, L501.6710 ####[facility] [address] [place], [address] Lymphocytes/100 WBC (Bld) 20.8 % Normal 19-41 [facility] Comment on above: Order Comment: 514.1 Performed By: #### L 100.0100, L501.8820, L500.4050, L501.6710 ####[facility] [address] [place], [address] MCH (RBC) [Entitic mass] 25.9 pg Low 27.0-32.0 [facility] Comment on above: Order Comment: 514.1 Performed By: #### L 100.0100, L501.8820, L500.4050, L501.6710 ####[facility] [address] [place], [address] MCHC (RBC) [Mass/Vol] 29.1 g/dL Low 32-36 [facility] Comment on above: Order Comment: 514.1 Performed By: #### L 100.0100, L501.8820, L500.4050, L501.6710 ####[facility] [address] [place], [address] MCV (RBC) [Entitic vol] 88.9 fL Normal 81-99 [facility] Comment on above: Order Comment: 514.1 Performed By: #### L 100.0100, L501.8820, L500.4050, L501.6710 ####[facility] [address] [place], [address] Monocytes/100 WBC (Bld) 6.9 % Normal 0-10 [facility] Comment on above: Order Comment: 514.1 Performed By: #### L 100.0100, L501.8820, L500.4050, L501.6710 ####[facility] [address] [place], [address] Neutrophils/100 WBC (Bld) 69.5 % Normal 47-70 [facility] Comment on above: Order Comment: 514.1 Performed By: #### L 100.0100, L501.8820, L500.4050, L501.6710 ####[facility] [address] [place], [address] Nucleated RBC (Bld) [#/Vol] 0 10*3/uL Normal 0-5 [facility] Comment on above: Order Comment: 514.1 Performed By: #### L 100.0100, L501.8820, L500.4050, L501.6710 ####[facility] [address] [place], [address] Platelet mean volume (Bld) [Entitic vol] 10.0 fL Normal 6.2-12.0 [facility] Comment on above: Order Comment: 514.1 Performed By: #### L 100.0100, L501.8820, L500.4050, L501.6710 ####[facility] [address] [place], [address] Platelets (Bld) [#/Vol] 195 10*3/uL Normal 150-450 [facility] Comment on above: Order Comment: 514.1 Performed By: #### L 100.0100, L501.8820, L500.4050, L501.6710 ####[facility] [address] [place], [address] RBC (Bld) [#/Vol] 4.06 10*6/uL Low 4.2-5.4 [facility] Comment on above: Order Comment: 514.1 Performed By: #### L 100.0100, L501.8820, L500.4050, L501.6710 ####[facility] [address] [place], [address] RDW SD 57.0 fl High 35.1-43.9 [facility] Comment on above: Order Comment: 514.1 Performed By: #### L 100.0100, L501.8820, L500.4050, L501.6710 ####[facility] [address] [place], [address] WBC (Bld) [#/Vol] 8.4 10*3/uL Normal 4.4-11.0 [facility] Comment on above: Order Comment: 514.1 Performed By: #### L 100.0100, L501.8820, L500.4050, L501.6710 ####[facility] [address] [place], [address] CRPon 12-25-2023 C-REACTIVE PROT 80.80 mg/L High 0.0-3.0 [facility] Comment on above: Order Comment: 514.1 Result Comment: C-Re active Protein (CRP) provides useful information for thediagnosis, therapy and monitoring of inflammatory processesand associated diseases. For the evaluation of Relative Riskfor Cardiovascular Disease, a High Sensitivity CRP (HSCRP)should be ordered. Performed By: #### L 100.0100, L501.8820, L500.4050, L501.6710 ####[facility] [address] [place], [address] Comprehensive Metabolic Prof ilon 12-25-2023 Albumin [Mass/Vol] 1.2 g/dL Low 3.2-5.0 [facility] Comment on above: Order Comment: 514.1 Performed By: #### L 100.0100, L501.8820, L500.4050, L501.6710 ####[facility] [address] [place], [address] Albumin/Globulin [Mass ratio] 0.3 {ratio} Low 0.9-2.4 [facility] Comment on above: Order Comment: 514.1 Performed By: #### L 100.0100, L501.8820, L500.4050, L501.6710 ####[facility] [address] [place], [address] ALK P 144 U/L High 45-117 [facility] Comment on above: Order Comment: 514.1 Performed By: #### L 100.0100, L501.8820, L500.4050, L501.6710 ####[facility] [address] [place], [address] ALT [Catalytic activity/Vol] 12 U/L Low 13-56 [facility] Comment on above: Order Comment: 514.1 Performed By: #### L 100.0100, L501.8820, L500.4050, L501.6710 ####[facility] [address] [place], [address] AST [Catalytic activity/Vol] 26 U/L Normal 15-37 [facility] Comment on above: Order Comment: 514.1 Performed By: #### L 100.0100, L501.8820, L500.4050, L501.6710 ####[facility] [address] [place], [address] Bilirubin [Mass/Vol] 0.30 mg/dL Normal 0.20-1.00 [facility] Comment on above: Order Comment: 514.1 Result Comment: For patients on eltrombopag therapy, use of Dimension [place] TBIL is not recommended. Performed By: #### L 100.0100, L501.8820, L500.4050, L501.6710 ####[facility] [address] [place], [address] BUN/CRE 33.3 RATIO High 10-20 [facility] Comment on above: Order Comment: 514.1 Performed By: #### L 100.0100, L501.8820, L500.4050, L501.6710 ####[facility] [address] [place], [address] CA,Total 7.3 mg/dL Low 8.5-10.1 [facility] Comment on above: Order Comment: 514.1 Performed By: #### L 100.0100, L501.8820, L500.4050, L501.6710 ####[facility] [address] [place], [address] Chloride [Moles/Vol] 104 mmol/L Normal 98-107 [facility] Comment on above: Order Comment: 514.1 Performed By: #### L 100.0100, L501.8820, L500.4050, L501.6710 ####[facility] [address] [place], [address] CO2 [Moles/Vol] 26.0 mmol/L Normal 21.0-32.0 [facility] Comment on above: Order Comment: 514.1 Performed By: #### L 100.0100, L501.8820, L500.4050, L501.6710 ####[facility] [address] [place], [address] Creatinine [Mass/Vol] 0.54 mg/dL Low 0.55-1.02 [facility] Comment on above: Order Comment: 514.1 Result Comment: The validity of the calculated GFR GFRAA in patients over70 years has not been determined. Clinical correlation isessential. Performed By: #### L 100.0100, L501.8820, L500.4050, L501.6710 ####[facility] [address] [place], [address] EST GFR - AA 141 mL/min Normal >60 [facility] Comment on above: Order Comment: 514.1 Result Comment: Afri can Niuean GFR Calc Performed By: #### L 100.0100, L501.8820, L500.4050, L501.6710 ####[facility] [address] [place], [address] GAP 7 Normal 5-15 [facility] Comment on above: Order Comment: 514.1 Performed By: #### L 100.0100, L501.8820, L500.4050, L501.6710 ####[facility] [address] [place], [address] GFR/1.73 sq M.predicted among non-blacks MDRD (S/P/Bld) [Vol rate/Area] 117 mL/min/{1.73_m2} Normal >60 [facility] Comment on above: Order Comment: 514.1 Result Comment: Non- GFR Calc Performed By: #### L 100.0100, L501.8820, L500.4050, L501.6710 ####[facility] [address] [place], [address] Globulin (S) [Mass/Vol] 3.5 g/dL Normal 2.2-4.2 [facility] Comment on above: Order Comment: 514.1 Performed By: #### L 100.0100, L501.8820, L500.4050, L501.6710 ####[facility] [address] [place], [address] Glucose [Mass/Vol] 67 mg/dL Low 74-106 [facility] Comment on above: Order Comment: 514.1 Performed By: #### L 100.0100, L501.8820, L500.4050, L501.6710 ####[facility] [address] [place], [address] Potassium [Moles/Vol] 3.1 mmol/L Low 3.5-5.1 [facility] Comment on above: Order Comment: 514.1 Performed By: #### L 100.0100, L501.8820, L500.4050, L501.6710 ####[facility] [address] [place], [address] Sodium [Moles/Vol] 137 mmol/L Normal 136-145 [facility] Comment on above: Order Comment: 514.1 Performed By: #### L 100.0100, L501.8820, L500.4050, L501.6710 ####[facility] [address] [place], [address] T PROT 4.7 g/dL Low 6.4-8.2 [facility] Comment on above: Order Comment: 514.1 Performed By: #### L 100.0100, L501.8820, L500.4050, L501.6710 ####[facility] [address] [place], [address] Urea nitrogen [Mass/Vol] 18 mg/dL Normal 7-18 [facility] Comment on above: Order Comment: 514.1 Performed By: #### L 100.0100, L501.8820, L500.4050, L501.6710 ####[facility] [address] [place], [address] Vancomycin, Trough Levelon 0 12-25-2023 VANCO, TROUGH 19.3 ug/mL High 5.0-15.0 [facility] Comment on above: Order Comment: 514.1 0500 Result Comment: VANC OMYCIN STANDARED DRUG THERAPY TROUGH LEVEL: 5.0 - 15.0 mg/LVANCOMYCIN HIGH INTENSITY THERAPY TROUGH LEVEL: 15.0 - 20.0 mg/LHigh Intensity therapy recommended for serious lifethreatening infections include:- Nqesvirxrp-Hoebaseohglx-Jducuspon (Ventilator/Healtcare Associated)-SepsisPLEASE CONTACT PHARMACY SERVICES (#5740) FOR INTERPRETATIONOF RESULTS. Performed By: #### L 100.0100, L501.8820, L500.4050, L501.6710 ####[facility] [address] [place], [address] Basic Metabolic Profile (BMP )on 12-24-2023 BUN/CRE 28.6 RATIO High 10-20 [facility] Comment on above: Order Comment: 514-1 Performed By: #### L 500.2500 ####[facility] [address] [place], [address] CA,Total 7.4 mg/dL Low 8.5-10.1 [facility] Comment on above: Order Comment: 514-1 Performed By: #### L 500.2500 ####[facility] [address] [place], [address] Chloride [Moles/Vol] 104 mmol/L Normal 98-107 [facility] Comment on above: Order Comment: 514-1 Performed By: #### L 500.2500 ####[facility] [address] [place], [address] CO2 [Moles/Vol] 27.0 mmol/L Normal 21.0-32.0 [facility] Comment on above: Order Comment: 514-1 Performed By: #### L 500.2500 ####[facility] [address] [place], [address] Creatinine [Mass/Vol] 0.56 mg/dL Normal 0.55-1.02 [facility] Comment on above: Order Comment: 514- Result Comment: The validity of the calculated GFR GFRAA in patients over70 years has not been determined. Clinical correlation isessential. Performed By: #### L 500.2500 ####[facility] [address] [place], [address] EST GFR - AA 136 mL/min Normal >60 [facility] Comment on above: Order Comment: 514- Result Comment: Afri can Niuean GFR Calc Performed By: #### L 500.2500 ####[facility] [address] [place], [address] GAP 6 Normal 5-15 [facility] Comment on above: Order Comment: - Performed By: #### L 500.2500 ####[facility] [address] [place], [address] GFR/1.73 sq M.predicted among non-blacks MDRD (S/P/Bld) [Vol rate/Area] 112 mL/min/{1.73_m2} Normal >60 [facility] Comment on above: Order Comment: - Result Comment: Non- GFR Calc Performed By: #### L 500.2500 ####[facility] [address] [place], [address] Glucose [Mass/Vol] 82 mg/dL Normal 74-106 [facility] Comment on above: Order Comment: - Performed By: #### L 500.2500 ####[facility] [address] [place], [address] Potassium [Moles/Vol] 3.0 mmol/L Low 3.5-5.1 [facility] Comment on above: Order Comment: 514- Result Comment: Slig ht Hemolysis, Result may be falsely increased. Performed By: #### L 500.2500 ####[facility] [address] [place], [address] Sodium [Moles/Vol] 137 mmol/L Normal 136-145 [facility] Comment on above: Order Comment: 514-1 Performed By: #### L 500.2500 ####[facility] [address] [place], [address] Urea nitrogen [Mass/Vol] 16 mg/dL Normal 7-18 [facility] Comment on above: Order Comment: 514-1 Performed By: #### L 500.2500 ####[facility] [address] [place], [place], [address] Vancomycin, Trough Levelon 0 - VANCO, TROUGH 16.8 ug/mL High 5.0-15.0 [facility] Comment on above: Order Comment: 514- 0800 Result Comment: VANC OMYCIN STANDARED DRUG THERAPY TROUGH LEVEL: 5.0 - 15.0 mg/LVANCOMYCIN HIGH INTENSITY THERAPY TROUGH LEVEL: 15.0 - 20.0 mg/LHigh Intensity therapy recommended for serious lifethreatening infections include:- Pamragvdtt-Zfbeeiutovru-Lnrtownzk (Ventilator/Healtcare Associated)-SepsisPLEASE CONTACT PHARMACY SERVICES (#3555) FOR INTERPRETATIONOF RESULTS. Performed By: #### L 501.8820 ####[facility] [address] [place], [address] CBC W/Diff, Automatedon 12-08 Absolute Lymph 2.08 X10 3/uL Normal 0.83-4.51 [facility] Comment on above: Order Comment: 514- Performed By: #### L 100.0100, L501.8820, L500.4050, L501.6710 ####[facility] [address] [place], [address] Absolute Neut 6.8 X10 3/uL Normal 2.0-7.7 [facility] Comment on above: Order Comment: 514- Performed By: #### L 100.0100, L501.8820, L500.4050, L501.6710 ####[facility] [address] [place], [address] Basophils/100 WBC (Bld) 0.5 % Normal 0-1 [facility] Comment on above: Order Comment: 514-1 Performed By: #### L 100.0100, L501.8820, L500.4050, L501.6710 ####[facility] [address] [place], [address] Eosinophils/100 WBC (Bld) 1.1 % Normal 0-5 [facility] Comment on above: Order Comment: 514-1 Performed By: #### L 100.0100, L501.8820, L500.4050, L501.6710 ####[facility] [address] [place], [address] Erythrocyte distribution width (RBC) [Ratio] 16.9 % High 11.6-14.6 [facility] Comment on above: Order Comment: 514-1 Performed By: #### L 100.0100, L501.8820, L500.4050, L501.6710 ####[facility] [address] [place], [address] Hematocrit (Bld) [Volume fraction] 33.0 % Low 37-47 [facility] Comment on above: Order Comment: 514-1 Performed By: #### L 100.0100, L501.8820, L500.4050, L501.6710 ####[facility] [address] [place], [address] Hemoglobin (Bld) [Mass/Vol] 9.9 g/dL Low 12.0-15.0 [facility] Comment on above: Order Comment: 514-1 Performed By: #### L 100.0100, L501.8820, L500.4050, L501.6710 ####[facility] [address] [place], [address] IG% 0.600 Normal 0.0-0.9 [facility] Comment on above: Order Comment: 514-1 Result Comment: IG% - Immature Granulocytes (promyelocytes, myelocytes andmetamyelocytes) > 1% indicates that a LEFT SHIFT is Present. Performed By: #### L 100.0100, L501.8820, L500.4050, L501.6710 ####[facility] [address] [place], [address] Lymphocytes/100 WBC (Bld) 21.5 % Normal 19-41 [facility] Comment on above: Order Comment: 514-1 Performed By: #### L 100.0100, L501.8820, L500.4050, L501.6710 ####[facility] [address] [place], [address] MCH (RBC) [Entitic mass] 25.3 pg Low 27.0-32.0 [facility] Comment on above: Order Comment: 514-1 Performed By: #### L 100.0100, L501.8820, L500.4050, L501.6710 ####[facility] [address] [place], [address] MCHC (RBC) [Mass/Vol] 30.0 g/dL Low 32-36 [facility] Comment on above: Order Comment: 514-1 Performed By: #### L 100.0100, L501.8820, L500.4050, L501.6710 ####[facility] [address] [place], [address] MCV (RBC) [Entitic vol] 84.4 fL Normal 81-99 [facility] Comment on above: Order Comment: 514-1 Performed By: #### L 100.0100, L501.8820, L500.4050, L501.6710 ####[facility] [address] [place], [address] Monocytes/100 WBC (Bld) 6.1 % Normal 0-10 [facility] Comment on above: Order Comment: 514-1 Performed By: #### L 100.0100, L501.8820, L500.4050, L501.6710 ####[facility] [address] [place], [address] Neutrophils/100 WBC (Bld) 70.2 % High 47-70 [facility] Comment on above: Order Comment: 514-1 Performed By: #### L 100.0100, L501.8820, L500.4050, L501.6710 ####[facility] [address] [place], [address] Nucleated RBC (Bld) [#/Vol] 0 10*3/uL Normal 0-5 [facility] Comment on above: Order Comment: 514-1 Performed By: #### L 100.0100, L501.8820, L500.4050, L501.6710 ####[facility] [address] [place], [address] Platelet mean volume (Bld) [Entitic vol] 9.5 fL Normal 6.2-12.0 [facility] Comment on above: Order Comment: 514-1 Performed By: #### L 100.0100, L501.8820, L500.4050, L501.6710 ####[facility] [address] [place], [address] Platelets (Bld) [#/Vol] 236 10*3/uL Normal 150-450 [facility] Comment on above: Order Comment: 514-1 Performed By: #### L 100.0100, L501.8820, L500.4050, L501.6710 ####[facility] [address] [place], [address] RBC (Bld) [#/Vol] 3.91 10*6/uL Low 4.2-5.4 [facility] Comment on above: Order Comment: 514-1 Performed By: #### L 100.0100, L501.8820, L500.4050, L501.6710 ####[facility] [address] [place], [address] RDW SD 52.0 fl High 35.1-43.9 [facility] Comment on above: Order Comment: 514-1 Performed By: #### L 100.0100, L501.8820, L500.4050, L501.6710 ####[facility] [address] [place], [address] WBC (Bld) [#/Vol] 9.7 10*3/uL Normal 4.4-11.0 [facility] Comment on above: Order Comment: 514-1 Performed By: #### L 100.0100, L501.8820, L500.4050, L501.6710 ####[facility] [address] [place], [address] CRPon 12-18-2023 C-REACTIVE PROT 37.20 mg/L High 0.0-3.0 [facility] Comment on above: Order Comment: 514-1 Result Comment: C-Re active Protein (CRP) provides useful information for thediagnosis, therapy and monitoring of inflammatory processesand associated diseases. For the evaluation of Relative Riskfor Cardiovascular Disease, a High Sensitivity CRP (HSCRP)should be ordered. Performed By: #### L 100.0100, L501.8820, L500.4050, L501.6710 ####[facility] [address] [place], [address] Comprehensive Metabolic Prof ilon 12-18-2023 Albumin [Mass/Vol] 1.5 g/dL Low 3.2-5.0 [facility] Comment on above: Order Comment: 514-1 Performed By: #### L 100.0100, L501.8820, L500.4050, L501.6710 ####[facility] [address] [place], [address] Albumin/Globulin [Mass ratio] 0.4 {ratio} Low 0.9-2.4 [facility] Comment on above: Order Comment: 514-1 Performed By: #### L 100.0100, L501.8820, L500.4050, L501.6710 ####[facility] [address] [place], [address] ALK P 150 U/L High 45-117 [facility] Comment on above: Order Comment: 514-1 Performed By: #### L 100.0100, L501.8820, L500.4050, L501.6710 ####[facility] [address] [place], [address] ALT [Catalytic activity/Vol] 14 U/L Normal 13-56 [facility] Comment on above: Order Comment: 514-1 Performed By: #### L 100.0100, L501.8820, L500.4050, L501.6710 ####[facility] [address] [place], [address] AST [Catalytic activity/Vol] 22 U/L Normal 15-37 [facility] Comment on above: Order Comment: 514-1 Performed By: #### L 100.0100, L501.8820, L500.4050, L501.6710 ####[facility] [address] [place], [address] Bilirubin [Mass/Vol] 0.20 mg/dL Normal 0.20-1.00 [facility] Comment on above: Order Comment: 514-1 Result Comment: For patients on eltrombopag therapy, use of Dimension [place] TBIL is not recommended. Performed By: #### L 100.0100, L501.8820, L500.4050, L501.6710 ####[facility] [address] [place], [address] BUN/CRE 25.2 RATIO High 10-20 [facility] Comment on above: Order Comment: 514-1 Performed By: #### L 100.0100, L501.8820, L500.4050, L501.6710 ####[facility] [address] [place], [address] CA,Total 7.6 mg/dL Low 8.5-10.1 [facility] Comment on above: Order Comment: 514-1 Performed By: #### L 100.0100, L501.8820, L500.4050, L501.6710 ####[facility] [address] [place], [address] Chloride [Moles/Vol] 105 mmol/L Normal 98-107 [facility] Comment on above: Order Comment: 514-1 Performed By: #### L 100.0100, L501.8820, L500.4050, L501.6710 ####[facility] [address] [place], [address] CO2 [Moles/Vol] 28.0 mmol/L Normal 21.0-32.0 [facility] Comment on above: Order Comment: 514-1 Performed By: #### L 100.0100, L501.8820, L500.4050, L501.6710 ####[facility] [address] [place], [address] Creatinine [Mass/Vol] 0.56 mg/dL Normal 0.55-1.02 [facility] Comment on above: Order Comment: 514-1 Result Comment: The validity of the calculated GFR GFRAA in patients over70 years has not been determined. Clinical correlation isessential. Performed By: #### L 100.0100, L501.8820, L500.4050, L501.6710 ####[facility] [address] [place], [address] EST GFR - AA 137 mL/min Normal >60 [facility] Comment on above: Order Comment: 514- Result Comment: Afri can Niuean GFR Calc Performed By: #### L 100.0100, L501.8820, L500.4050, L501.6710 ####[facility] [address] [place], [address] GAP 5 Normal 5-15 [facility] Comment on above: Order Comment: 514-1 Performed By: #### L 100.0100, L501.8820, L500.4050, L501.6710 ####[facility] [address] [place], [address] GFR/1.73 sq M.predicted among non-blacks MDRD (S/P/Bld) [Vol rate/Area] 113 mL/min/{1.73_m2} Normal >60 [facility] Comment on above: Order Comment: - Result Comment: Non- GFR Calc Performed By: #### L 100.0100, L501.8820, L500.4050, L501.6710 ####[facility] [address] [place], [address] Globulin (S) [Mass/Vol] 3.4 g/dL Normal 2.2-4.2 [facility] Comment on above: Order Comment: 514-1 Performed By: #### L 100.0100, L501.8820, L500.4050, L501.6710 ####[facility] [address] [place], [address] Glucose [Mass/Vol] 96 mg/dL Normal 74-106 [facility] Comment on above: Order Comment: 514-1 Performed By: #### L 100.0100, L501.8820, L500.4050, L501.6710 ####[facility] [address] [place], [address] Potassium [Moles/Vol] 2.8 mmol/L Low 3.5-5.1 [facility] Comment on above: Order Comment: 514-1 Performed By: #### L 100.0100, L501.8820, L500.4050, L501.6710 ####[facility] [address] [place], [address] Sodium [Moles/Vol] 138 mmol/L Normal 136-145 [facility] Comment on above: Order Comment: 514-1 Performed By: #### L 100.0100, L501.8820, L500.4050, L501.6710 ####[facility] [address] [place], [address] T PROT 4.9 g/dL Low 6.4-8.2 [facility] Comment on above: Order Comment: 514-1 Performed By: #### L 100.0100, L501.8820, L500.4050, L501.6710 ####[facility] [address] [place], [address] Urea nitrogen [Mass/Vol] 14 mg/dL Normal 7-18 [facility] Comment on above: Order Comment: 514-1 Performed By: #### L 100.0100, L501.8820, L500.4050, L501.6710 ####[facility] [address] [place], [address] Vancomycin, Trough Levelon 0 12-18-2023 VANCO, TROUGH 22.0 ug/mL High 5.0-15.0 [facility] Comment on above: Order Comment: 514-1 8184 Result Comment: VANC OMYCIN STANDARED DRUG THERAPY TROUGH LEVEL: 5.0 - 15.0 mg/LVANCOMYCIN HIGH INTENSITY THERAPY TROUGH LEVEL: 15.0 - 20.0 mg/LHigh Intensity therapy recommended for serious lifethreatening infections include:- Mgmkybbhzw-Qgyouqesjlqh-Afgxqazwg (Ventilator/Healtcare Associated)-SepsisPLEASE CONTACT PHARMACY SERVICES (#3661) FOR INTERPRETATIONOF RESULTS. Performed By: #### L 100.0100, L501.8820, L500.4050, L501.6710 ####[facility] [address] [place], [address] Emergency Department Summary on 12-17-2023 Emergency Department Summary Normal [facility] Vancomycin, Random Levelon 0 12-12-2023 VANCO, RANDOM 15.9 ug/mL High 0.0-15.0 [facility] Comment on above: Order Comment: 514.1 Result Comment: VANC OMYCIN STANDARD DRUG THERAPY: CRITICAL VALUE IS > 15.0 mg/LVANCOMYCIN HIGH INTENSITY THERAPY: CRITICAL VALUE IS > 20.0 mg/LPLEASE CONTACT PHARMACY SERVICES (#0575) FOR INTERPRETATIONOF RESULTS. THIS RESULT DOES NOT REPRESENT A PEAK OR TROUGHLEVEL FOR THIS DRUG. Performed By: #### L 501.8850 ####[facility] [address] [place], [address] CBC W/Diff, Automatedon Absolute Lymph 2.12 X10 3/uL Normal 0.83-4.51 [facility] Comment on above: Order Comment: 514.1 Performed By: #### L 100.0100, L501.8820, L500.4050, L501.6710, L501.9520 ####[facility] [address] [place], [address] Absolute Neut 8.2 X10 3/uL High 2.0-7.7 [facility] Comment on above: Order Comment: 514.1 Performed By: #### L 100.0100, L501.8820, L500.4050, L501.6710, L501.9520 ####[facility] [address] [place], [address] Basophils/100 WBC (Bld) 0.4 % Normal 0-1 [facility] Comment on above: Order Comment: 514.1 Performed By: #### L 100.0100, L501.8820, L500.4050, L501.6710, L501.9520 ####[facility] [address] [place], [address] Eosinophils/100 WBC (Bld) 1.5 % Normal 0-5 [facility] Comment on above: Order Comment: 514.1 Performed By: #### L 100.0100, L501.8820, L500.4050, L501.6710, L501.9520 ####[facility] [address] [place], [address] Erythrocyte distribution width (RBC) [Ratio] 17.1 % High 11.6-14.6 [facility] Comment on above: Order Comment: 514.1 Performed By: #### L 100.0100, L501.8820, L500.4050, L501.6710, L501.9520 ####[facility] [address] [place], [address] Hematocrit (Bld) [Volume fraction] 33.2 % Low 37-47 [facility] Comment on above: Order Comment: 514.1 Performed By: #### L 100.0100, L501.8820, L500.4050, L501.6710, L501.9520 ####[facility] [address] [place], [address] Hemoglobin (Bld) [Mass/Vol] 10.0 g/dL Low 12.0-15.0 [facility] Comment on above: Order Comment: 514.1 Performed By: #### L 100.0100, L501.8820, L500.4050, L501.6710, L501.9520 ####[facility] [address] [place], [address] IG% 1.200 High 0.0-0.9 [facility] Comment on above: Order Comment: 514.1 Result Comment: IG% - Immature Granulocytes (promyelocytes, myelocytes andmetamyelocytes) > 1% indicates that a LEFT SHIFT is Present. Performed By: #### L 100.0100, L501.8820, L500.4050, L501.6710, L501.9520 ####[facility] [address] [place], [address] Lymphocytes/100 WBC (Bld) 18.8 % Low 19-41 [facility] Comment on above: Order Comment: 514.1 Performed By: #### L 100.0100, L501.8820, L500.4050, L501.6710, L501.9520 ####[facility] [address] [place], [address] MCH (RBC) [Entitic mass] 25.4 pg Low 27.0-32.0 [facility] Comment on above: Order Comment: 514.1 Performed By: #### L 100.0100, L501.8820, L500.4050, L501.6710, L501.9520 ####[facility] [address] [place], [address] MCHC (RBC) [Mass/Vol] 30.1 g/dL Low 32-36 [facility] Comment on above: Order Comment: 514.1 Performed By: #### L 100.0100, L501.8820, L500.4050, L501.6710, L501.9520 ####[facility] [address] [place], [address] MCV (RBC) [Entitic vol] 84.5 fL Normal 81-99 [facility] Comment on above: Order Comment: 514.1 Performed By: #### L 100.0100, L501.8820, L500.4050, L501.6710, L501.9520 ####[facility] [address] [place], [address] Monocytes/100 WBC (Bld) 5.9 % Normal 0-10 [facility] Comment on above: Order Comment: 514.1 Performed By: #### L 100.0100, L501.8820, L500.4050, L501.6710, L501.9520 ####[facility] [address] [place], [address] Neutrophils/100 WBC (Bld) 72.2 % High 47-70 [facility] Comment on above: Order Comment: 514.1 Performed By: #### L 100.0100, L501.8820, L500.4050, L501.6710, L501.9520 ####[facility] [address] [place], [address] Nucleated RBC (Bld) [#/Vol] 0 10*3/uL Normal 0-5 [facility] Comment on above: Order Comment: 514.1 Performed By: #### L 100.0100, L501.8820, L500.4050, L501.6710, L501.9520 ####[facility] [address] [place], [address] Platelet mean volume (Bld) [Entitic vol] 9.5 fL Normal 6.2-12.0 [facility] Comment on above: Order Comment: 514.1 Performed By: #### L 100.0100, L501.8820, L500.4050, L501.6710, L501.9520 ####[facility] [address] [place], [address] Platelets (Bld) [#/Vol] 254 10*3/uL Normal 150-450 [facility] Comment on above: Order Comment: 514.1 Performed By: #### L 100.0100, L501.8820, L500.4050, L501.6710, L501.9520 ####[facility] [address] [place], [address] RBC (Bld) [#/Vol] 3.93 10*6/uL Low 4.2-5.4 [facility] Comment on above: Order Comment: 514.1 Performed By: #### L 100.0100, L501.8820, L500.4050, L501.6710, L501.9520 ####[facility] [address] [place], [address] RDW SD 53.3 fl High 35.1-43.9 [facility] Comment on above: Order Comment: 514.1 Performed By: #### L 100.0100, L501.8820, L500.4050, L501.6710, L501.9520 ####[facility] [address] [place], [address] WBC (Bld) [#/Vol] 11.3 10*3/uL High 4.4-11.0 [facility] Comment on above: Order Comment: 514.1 Performed By: #### L 100.0100, L501.8820, L500.4050, L501.6710, L501.9520 ####[facility] [address] [place], [address] CRPon 12-11-2023 C-REACTIVE PROT 75.80 mg/L High 0.0-3.0 [facility] Comment on above: Order Comment: 514.1 Result Comment: C-Re active Protein (CRP) provides useful information for thediagnosis, therapy and monitoring of inflammatory processesand associated diseases. For the evaluation of Relative Riskfor Cardiovascular Disease, a High Sensitivity CRP (HSCRP)should be ordered. Performed By: #### L 100.0100, L501.8820, L500.4050, L501.6710, L501.9520 ####[facility] [address] [place], [address] Comprehensive Metabolic Prof ilon 12-11-2023 Albumin [Mass/Vol] 1.7 g/dL Low 3.2-5.0 [facility] Comment on above: Order Comment: 514.1 Performed By: #### L 100.0100, L501.8820, L500.4050, L501.6710, L501.9520 ####[facility] [address] [place], [address] Albumin/Globulin [Mass ratio] 0.4 {ratio} Low 0.9-2.4 [facility] Comment on above: Order Comment: 514.1 Performed By: #### L 100.0100, L501.8820, L500.4050, L501.6710, L501.9520 ####[facility] [address] [place], [address] ALK P 163 U/L High 45-117 [facility] Comment on above: Order Comment: 514.1 Performed By: #### L 100.0100, L501.8820, L500.4050, L501.6710, L501.9520 ####[facility] [address] [place], [address] ALT [Catalytic activity/Vol] 14 U/L Normal 13-56 [facility] Comment on above: Order Comment: 514.1 Performed By: #### L 100.0100, L501.8820, L500.4050, L501.6710, L501.9520 ####[facility] [address] [place], [address] AST [Catalytic activity/Vol] 21 U/L Normal 15-37 [facility] Comment on above: Order Comment: 514.1 Performed By: #### L 100.0100, L501.8820, L500.4050, L501.6710, L501.9520 ####[facility] [address] [place], [address] Bilirubin [Mass/Vol] 0.30 mg/dL Normal 0.20-1.00 [facility] Comment on above: Order Comment: 514.1 Result Comment: For patients on eltrombopag therapy, use of Dimension [place] TBIL is not recommended. Performed By: #### L 100.0100, L501.8820, L500.4050, L501.6710, L501.9520 ####[facility] [address] [place], [address] BUN/CRE 25.6 RATIO High 10-20 [facility] Comment on above: Order Comment: 514.1 Performed By: #### L 100.0100, L501.8820, L500.4050, L501.6710, L501.9520 ####[facility] [address] [place], [address] CA,Total 7.9 mg/dL Low 8.5-10.1 [facility] Comment on above: Order Comment: 514.1 Performed By: #### L 100.0100, L501.8820, L500.4050, L501.6710, L501.9520 ####[facility] [address] [place], [address] Chloride [Moles/Vol] 100 mmol/L Normal 98-107 [facility] Comment on above: Order Comment: 514.1 Performed By: #### L 100.0100, L501.8820, L500.4050, L501.6710, L501.9520 ####[facility] [address] [place], [address] CO2 [Moles/Vol] 28.0 mmol/L Normal 21.0-32.0 [facility] Comment on above: Order Comment: 514.1 Performed By: #### L 100.0100, L501.8820, L500.4050, L501.6710, L501.9520 ####[facility] [address] [place], [address] Creatinine [Mass/Vol] 0.62 mg/dL Normal 0.55-1.02 [facility] Comment on above: Order Comment: 514.1 Result Comment: The validity of the calculated GFR GFRAA in patients over70 years has not been determined. Clinical correlation isessential. Performed By: #### L 100.0100, L501.8820, L500.4050, L501.6710, L501.9520 ####[facility] [address] [place], [address] EST GFR - AA 119 mL/min Normal >60 [facility] Comment on above: Order Comment: 514.1 Result Comment: Afri can Ni[place]an GFR Calc Performed By: #### L 100.0100, L501.8820, L500.4050, L501.6710, L501.9520 ####[facility] [address] [place], [address] GAP 6 Normal 5-15 [facility] Comment on above: Order Comment: 514.1 Performed By: #### L 100.0100, L501.8820, L500.4050, L501.6710, L501.9520 ####[facility] [address] [place], [address] GFR/1.73 sq M.predicted among non-blacks MDRD (S/P/Bld) [Vol rate/Area] 99 mL/min/{1.73_m2} Normal >60 [facility] Comment on above: Order Comment: 514.1 Result Comment: Non- GFR Calc Performed By: #### L 100.0100, L501.8820, L500.4050, L501.6710, L501.9520 ####[facility] [address] [place], [address] Globulin (S) [Mass/Vol] 4.0 g/dL Normal 2.2-4.2 [facility] Comment on above: Order Comment: 514.1 Performed By: #### L 100.0100, L501.8820, L500.4050, L501.6710, L501.9520 ####[facility] [address] [place], [address] Glucose [Mass/Vol] 112 mg/dL High 74-106 [facility] Comment on above: Order Comment: 514.1 Result Comment: Fast ing Glucose result from 100 to 125 mg/dLsuggests IMPAIRED HOMEOSTASIS per A.D.A. criteria. Performed By: #### L 100.0100, L501.8820, L500.4050, L501.6710, L501.9520 ####[facility] [address] [place], [address] Potassium [Moles/Vol] 3.6 mmol/L Normal 3.5-5.1 [facility] Comment on above: Order Comment: 514.1 Performed By: #### L 100.0100, L501.8820, L500.4050, L501.6710, L501.9520 ####[facility] [address] [place], [address] Sodium [Moles/Vol] 134 mmol/L Low 136-145 [facility] Comment on above: Order Comment: 514.1 Performed By: #### L 100.0100, L501.8820, L500.4050, L501.6710, L501.9520 ####[facility] [address] [place], [address] T PROT 5.7 g/dL Low 6.4-8.2 [facility] Comment on above: Order Comment: 514.1 Performed By: #### L 100.0100, L501.8820, L500.4050, L501.6710, L501.9520 ####[facility] [address] [place], [address] Urea nitrogen [Mass/Vol] 16 mg/dL Normal 7-18 [facility] Comment on above: Order Comment: 514.1 Performed By: #### L 100.0100, L501.8820, L500.4050, L501.6710, L501.9520 ####[facility] [address] [place], [address] Thyroid Stim Hormone (TSH)on 12-11-2023 TSH 2.240 uIU/mL Normal 0.358-3.740 [facility] Comment on above: Order Comment: 514.1 Performed By: #### L 100.0100, L501.8820, L500.4050, L501.6710, L501.9520 ####[facility] [address] [place], [address] Vancomycin, Trough Levelon 0 12-11-2023 VANCO, TROUGH 20.7 ug/mL High 5.0-15.0 [facility] Comment on above: Order Comment: 514.1 0000 Result Comment: VANC OMYCIN STANDARED DRUG THERAPY TROUGH LEVEL: 5.0 - 15.0 mg/LVANCOMYCIN HIGH INTENSITY THERAPY TROUGH LEVEL: 15.0 - 20.0 mg/LHigh Intensity therapy recommended for serious lifethreatening infections include:- Fibpejbxwt-Gkecvaswseeh-Ppkvkqauh (Ventilator/Healtcare Associated)-SepsisPLEASE CONTACT PHARMACY SERVICES (#9845) FOR INTERPRETATIONOF RESULTS. Performed By: #### L 100.0100, L501.8820, L500.4050, L501.6710, L501.9520 ####[facility] [address] [place], [address] CBC W/Diff, Automatedon 08 Absolute Lymph 2.08 X10 3/uL Normal 0.83-4.51 [facility] Comment on above: Order Comment: 514-1 Performed By: #### L 100.0100, L501.8820, L500.4050, L501.6710 ####[facility] [address] [place], [address] Absolute Neut 9.0 X10 3/uL High 2.0-7.7 [facility] Comment on above: Order Comment: 514-1 Performed By: #### L 100.0100, L501.8820, L500.4050, L501.6710 ####[facility] [address] [place], [address] Basophils/100 WBC (Bld) 0.6 % Normal 0-1 [facility] Comment on above: Order Comment: 514-1 Performed By: #### L 100.0100, L501.8820, L500.4050, L501.6710 ####[facility] [address] [place], [address] Eosinophils/100 WBC (Bld) 2.2 % Normal 0-5 [facility] Comment on above: Order Comment: 514-1 Performed By: #### L 100.0100, L501.8820, L500.4050, L501.6710 ####[facility] [address] [place], [address] Erythrocyte distribution width (RBC) [Ratio] 17.2 % High 11.6-14.6 [facility] Comment on above: Order Comment: 514-1 Performed By: #### L 100.0100, L501.8820, L500.4050, L501.6710 ####[facility] [address] [place], [address] Hematocrit (Bld) [Volume fraction] 30.6 % Low 37-47 [facility] Comment on above: Order Comment: 514-1 Performed By: #### L 100.0100, L501.8820, L500.4050, L501.6710 ####[facility] [address] [place], [address] Hemoglobin (Bld) [Mass/Vol] 9.4 g/dL Low 12.0-15.0 [facility] Comment on above: Order Comment: 514-1 Performed By: #### L 100.0100, L501.8820, L500.4050, L501.6710 ####[facility] [address] [place], [address] IG% 0.700 Normal 0.0-0.9 [facility] Comment on above: Order Comment: 514-1 Result Comment: IG% - Immature Granulocytes (promyelocytes, myelocytes andmetamyelocytes) > 1% indicates that a LEFT SHIFT is Present. Performed By: #### L 100.0100, L501.8820, L500.4050, L501.6710 ####[facility] [address] [place], [address] Lymphocytes/100 WBC (Bld) 16.7 % Low 19-41 [facility] Comment on above: Order Comment: 514-1 Performed By: #### L 100.0100, L501.8820, L500.4050, L501.6710 ####[facility] [address] [place], [address] MCH (RBC) [Entitic mass] 26.4 pg Low 27.0-32.0 [facility] Comment on above: Order Comment: 514-1 Performed By: #### L 100.0100, L501.8820, L500.4050, L501.6710 ####[facility] [address] [place], [address] MCHC (RBC) [Mass/Vol] 30.7 g/dL Low 32-36 [facility] Comment on above: Order Comment: 514-1 Performed By: #### L 100.0100, L501.8820, L500.4050, L501.6710 ####[facility] [address] [place], [address] MCV (RBC) [Entitic vol] 86.0 fL Normal 81-99 [facility] Comment on above: Order Comment: 514-1 Performed By: #### L 100.0100, L501.8820, L500.4050, L501.6710 ####[facility] [address] [place], [address] Monocytes/100 WBC (Bld) 7.7 % Normal 0-10 [facility] Comment on above: Order Comment: 514-1 Performed By: #### L 100.0100, L501.8820, L500.4050, L501.6710 ####[facility] [address] [place], [address] Neutrophils/100 WBC (Bld) 72.1 % High 47-70 [facility] Comment on above: Order Comment: 514-1 Performed By: #### L 100.0100, L501.8820, L500.4050, L501.6710 ####[facility] [address] [place], [address] Nucleated RBC (Bld) [#/Vol] 0 10*3/uL Normal 0-5 [facility] Comment on above: Order Comment: 514-1 Performed By: #### L 100.0100, L501.8820, L500.4050, L501.6710 ####[facility] [address] [place], [address] Platelet mean volume (Bld) [Entitic vol] 9.2 fL Normal 6.2-12.0 [facility] Comment on above: Order Comment: 514-1 Performed By: #### L 100.0100, L501.8820, L500.4050, L501.6710 ####[facility] [address] [place], [address] Platelets (Bld) [#/Vol] 319 10*3/uL Normal 150-450 [facility] Comment on above: Order Comment: 514-1 Performed By: #### L 100.0100, L501.8820, L500.4050, L501.6710 ####[facility] [address] [place], [address] RBC (Bld) [#/Vol] 3.56 10*6/uL Low 4.2-5.4 [facility] Comment on above: Order Comment: 514-1 Performed By: #### L 100.0100, L501.8820, L500.4050, L501.6710 ####[facility] [address] [place], [address] RDW SD 55.0 fl High 35.1-43.9 [facility] Comment on above: Order Comment: 514-1 Performed By: #### L 100.0100, L501.8820, L500.4050, L501.6710 ####[facility] [address] [place], [address] WBC (Bld) [#/Vol] 12.5 10*3/uL High 4.4-11.0 [facility] Comment on above: Order Comment: 514-1 Performed By: #### L 100.0100, L501.8820, L500.4050, L501.6710 ####[facility] [address] [place], [address] CRPon 12-03-2023 C-REACTIVE PROT 108.00 mg/L High 0.0-3.0 [facility] Comment on above: Order Comment: 514-1 Result Comment: C-Re active Protein (CRP) provides useful information for thediagnosis, therapy and monitoring of inflammatory processesand associated diseases. For the evaluation of Relative Riskfor Cardiovascular Disease, a High Sensitivity CRP (HSCRP)should be ordered. Performed By: #### L 100.0100, L501.8820, L500.4050, L501.6710 ####[facility] [address] [place], [address] Comprehensive Metabolic Prof ilon 12-03-2023 Albumin [Mass/Vol] 1.8 g/dL Low 3.2-5.0 [facility] Comment on above: Order Comment: 514-1 Performed By: #### L 100.0100, L501.8820, L500.4050, L501.6710 ####[facility] [address] [place], [address] Albumin/Globulin [Mass ratio] 0.4 {ratio} Low 0.9-2.4 [facility] Comment on above: Order Comment: 514-1 Performed By: #### L 100.0100, L501.8820, L500.4050, L501.6710 ####[facility] [address] [place], [address] ALK P 203 U/L High 45-117 [facility] Comment on above: Order Comment: 514-1 Performed By: #### L 100.0100, L501.8820, L500.4050, L501.6710 ####[facility] [address] [place], [address] ALT [Catalytic activity/Vol] 14 U/L Normal 13-56 [facility] Comment on above: Order Comment: 514-1 Performed By: #### L 100.0100, L501.8820, L500.4050, L501.6710 ####[facility] [address] [place], [address] AST [Catalytic activity/Vol] 20 U/L Normal 15-37 [facility] Comment on above: Order Comment: 514-1 Performed By: #### L 100.0100, L501.8820, L500.4050, L501.6710 ####[facility] [address] [place], [address] Bilirubin [Mass/Vol] 0.30 mg/dL Normal 0.20-1.00 [facility] Comment on above: Order Comment: 514-1 Result Comment: For patients on eltrombopag therapy, use of Dimension [place] TBIL is not recommended. Performed By: #### L 100.0100, L501.8820, L500.4050, L501.6710 ####[facility] [address] [place], [address] BUN/CRE 24.4 RATIO High 10-20 [facility] Comment on above: Order Comment: 514-1 Performed By: #### L 100.0100, L501.8820, L500.4050, L501.6710 ####[facility] [address], [address] CA,Total 8.3 mg/dL Low 8.5-10.1 [facility] Comment on above: Order Comment: 514-1 Performed By: #### L 100.0100, L501.8820, L500.4050, L501.6710 ####[facility] [address] [place], [address] Chloride [Moles/Vol] 100 mmol/L Normal 98-107 [facility] Comment on above: Order Comment: 514-1 Performed By: #### L 100.0100, L501.8820, L500.4050, L501.6710 ####[facility] [address] [place], [address] CO2 [Moles/Vol] 26.0 mmol/L Normal 21.0-32.0 [facility] Comment on above: Order Comment: 514-1 Performed By: #### L 100.0100, L501.8820, L500.4050, L501.6710 ####[facility] [address] [place], [address] Creatinine [Mass/Vol] 0.78 mg/dL Normal 0.55-1.02 [facility] Comment on above: Order Comment: 514-1 Result Comment: The validity of the calculated GFR GFRAA in patients over70 years has not been determined. Clinical correlation isessential. Performed By: #### L 100.0100, L501.8820, L500.4050, L501.6710 ####[facility] [address] [place], [address] EST GFR - AA 92 mL/min Normal >60 [facility] Comment on above: Order Comment: 514-1 Result Comment: Afri can Niuean GFR Calc Performed By: #### L 100.0100, L501.8820, L500.4050, L501.6710 ####[facility] [address] [place], [address] GAP 10 Normal 5-15 [facility] Comment on above: Order Comment: 514-1 Performed By: #### L 100.0100, L501.8820, L500.4050, L501.6710 ####[facility] [address] [place], [address] GFR/1.73 sq M.predicted among non-blacks MDRD (S/P/Bld) [Vol rate/Area] 76 mL/min/{1.73_m2} Normal >60 [facility] Comment on above: Order Comment: 514-1 Result Comment: Non- GFR Calc Performed By: #### L 100.0100, L501.8820, L500.4050, L501.6710 ####[facility] [address] [place], [address] Globulin (S) [Mass/Vol] 4.0 g/dL Normal 2.2-4.2 [facility] Comment on above: Order Comment: 514-1 Performed By: #### L 100.0100, L501.8820, L500.4050, L501.6710 ####[facility] [address] [place], [address] Glucose [Mass/Vol] 132 mg/dL High 74-106 [facility] Comment on above: Order Comment: 514-1 Result Comment: Fast ing Glucose result greater than or equal to 126 mg/dLsuggests DIABETES MELLITUS per A.D.A. criteria. Performed By: #### L 100.0100, L501.8820, L500.4050, L501.6710 ####[facility] [address] [place], [address] Potassium [Moles/Vol] 3.3 mmol/L Low 3.5-5.1 [facility] Comment on above: Order Comment: 514-1 Performed By: #### L 100.0100, L501.8820, L500.4050, L501.6710 ####[facility] [address] [place], [address] Sodium [Moles/Vol] 136 mmol/L Normal 136-145 [facility] Comment on above: Order Comment: 514-1 Performed By: #### L 100.0100, L501.8820, L500.4050, L501.6710 ####[facility] [address] [place], [address] T PROT 5.8 g/dL Low 6.4-8.2 [facility] Comment on above: Order Comment: 514-1 Performed By: #### L 100.0100, L501.8820, L500.4050, L501.6710 ####[facility] [address] [place], [address] Urea nitrogen [Mass/Vol] 19 mg/dL High 7-18 [facility] Comment on above: Order Comment: 514-1 Performed By: #### L 100.0100, L501.8820, L500.4050, L501.6710 ####[facility] [address] [place], [address] Vancomycin, Trough Levelon 0 12-03-2023 VANCO, TROUGH 18.9 ug/mL High 5.0-15.0 [facility] Comment on above: Order Comment: 514-1 9371 Result Comment: VANC OMYCIN STANDARED DRUG THERAPY TROUGH LEVEL: 5.0 - 15.0 mg/LVANCOMYCIN HIGH INTENSITY THERAPY TROUGH LEVEL: 15.0 - 20.0 mg/LHigh Intensity therapy recommended for serious lifethreatening infections include:- Yzybnbdwld-Xhpvudfloggf-Ayjbcrksj (Ventilator/Healtcare Associated)-SepsisPLEASE CONTACT PHARMACY SERVICES (#8034) FOR INTERPRETATIONOF RESULTS. Performed By: #### L 100.0100, L501.8820, L500.4050, L501.6710 ####[facility] [address] [place], [address] Vancomycin, Trough Levelon 0 11-30-2023 VANCO, TROUGH 23.4 ug/mL High 5.0-15.0 [facility] Comment on above: Order Comment: 514.1 0000 Result Comment: VANC OMYCIN STANDARED DRUG THERAPY TROUGH LEVEL: 5.0 - 15.0 mg/LVANCOMYCIN HIGH INTENSITY THERAPY TROUGH LEVEL: 15.0 - 20.0 mg/LHigh Intensity therapy recommended for serious lifethreatening infections include:- Fzpqhdhzqm-Kgbkmbsulruh-Rjgypgiwa (Ventilator/Healtcare Associated)-SepsisPLEASE CONTACT PHARMACY SERVICES (#9181) FOR INTERPRETATIONOF RESULTS. Performed By: #### L 501.8820 ####[facility] [address] [place], [address] Folates, (Folic Acid)on 11-08 FOLATES 16.60 ng/mL Normal 3.1-55.4 [facility] Comment on above: Order Comment: 514-1 N Result Comment: Slig ht Hemolysis, Result may be falsely increased. Performed By: #### L 503.0105, L506.1000, L506.0250 ####[facility] [address] [place], [address] Vitamin B12on 11-28-2023 Cobalamin (Vitamin B12) [Mass/Vol] 576 pg/mL Normal 211-911 [facility] Comment on above: Order Comment: 514-1 Performed By: #### L 503.0105, L506.1000, L506.0250 ####[facility] [address] [place], [address] Vitamin D,25 Hydroxyon 11-27 Vitamin D 25-OH 51.4 ng/mL Normal [facility] Comment on above: Order Comment: 514-1 Result Comment: Ele min D 25(OH) Status Range Deficiency <20 ng/mL (50nmol/L) Insufficiency 20 - 30 ng/mL (50 - 75 nmol/L) Sufficiency 30 - 100 ng/mL (75 - 250 nmol/L) Toxicity >100 ng/mL (>250 nmol/L) Performed By: #### L 503.0105, L506.1000, L506.0250 ####[facility] [address] [place], [address] Vancomycin, Random Levelon 0 11-27-2023 VANCO, RANDOM 15.9 ug/mL High 0.0-15.0 [facility] Comment on above: Order Comment: 514.1 Result Comment: VANC OMYCIN STANDARD DRUG THERAPY: CRITICAL VALUE IS > 15.0 mg/LVANCOMYCIN HIGH INTENSITY THERAPY: CRITICAL VALUE IS > 20.0 mg/LPLEASE CONTACT PHARMACY SERVICES (#9283) FOR INTERPRETATIONOF RESULTS. THIS RESULT DOES NOT REPRESENT A PEAK OR TROUGHLEVEL FOR THIS DRUG. Performed By: #### L 501.8850 ####[facility] [address] [place], [address] Basic Metabolic Profile (BMP )on 11-26-2023 BUN/CRE 19.4 RATIO Normal 10-20 [facility] Comment on above: Order Comment: 514.1 Performed By: #### L 100.0100, L500.2500, L501.6710, L501.8820 ####[facility] [address] [place], [address] CA,Total 8.2 mg/dL Low 8.5-10.1 [facility] Comment on above: Order Comment: 514.1 Performed By: #### L 100.0100, L500.2500, L501.6710, L501.8820 ####[facility] [address] [place], [address] Chloride [Moles/Vol] 106 mmol/L Normal 98-107 [facility] Comment on above: Order Comment: 514.1 Performed By: #### L 100.0100, L500.2500, L501.6710, L501.8820 ####[facility] [address] [place], [address] CO2 [Moles/Vol] 27.0 mmol/L Normal 21.0-32.0 [facility] Comment on above: Order Comment: 514.1 Performed By: #### L 100.0100, L500.2500, L501.6710, L501.8820 ####[facility] [address] [place], [address] Creatinine [Mass/Vol] 0.62 mg/dL Normal 0.55-1.02 [facility] Comment on above: Order Comment: 514.1 Result Comment: The validity of the calculated GFR GFRAA in patients over70 years has not been determined. Clinical correlation isessential. Performed By: #### L 100.0100, L500.2500, L501.6710, L501.8820 ####[facility] [address] [place], [address] EST GFR - AA 121 mL/min Normal >60 [facility] Comment on above: Order Comment: 514.1 Result Comment: Afri can Niuean GFR Calc Performed By: #### L 100.0100, L500.2500, L501.6710, L501.8820 ####[facility] [address] [place], [address] GAP 5 Normal 5-15 [facility] Comment on above: Order Comment: 514.1 Performed By: #### L 100.0100, L500.2500, L501.6710, L501.8820 ####[facility] [address] [place], [address] GFR/1.73 sq M.predicted among non-blacks MDRD (S/P/Bld) [Vol rate/Area] 100 mL/min/{1.73_m2} Normal >60 [facility] Comment on above: Order Comment: 514.1 Result Comment: Non- GFR Calc Performed By: #### L 100.0100, L500.2500, L501.6710, L501.8820 ####[facility] [address] [place], [address] Glucose [Mass/Vol] 102 mg/dL Normal 74-106 [facility] Comment on above: Order Comment: 514.1 Result Comment: Fast ing Glucose result from 100 to 125 mg/dLsuggests IMPAIRED HOMEOSTASIS per A.D.A. criteria. Performed By: #### L 100.0100, L500.2500, L501.6710, L501.8820 ####[facility] [address] [place], [address] Potassium [Moles/Vol] 3.3 mmol/L Low 3.5-5.1 [facility] Comment on above: Order Comment: 514.1 Performed By: #### L 100.0100, L500.2500, L501.6710, L501.8820 ####[facility] [address] [place], [address] Sodium [Moles/Vol] 138 mmol/L Normal 136-145 [facility] Comment on above: Order Comment: 514.1 Performed By: #### L 100.0100, L500.2500, L501.6710, L501.8820 ####[facility] [address] [place], [address] Urea nitrogen [Mass/Vol] 12 mg/dL Normal 7-18 [facility] Comment on above: Order Comment: 514.1 Performed By: #### L 100.0100, L500.2500, L501.6710, L501.8820 ####[facility] [address] [place], [address] CBC W/Diff, Automatedon 11-07 Absolute Lymph 2.11 X10 3/uL Normal 0.83-4.51 [facility] Comment on above: Order Comment: 514.1 Performed By: #### L 100.0100, L500.2500, L501.6710, L501.8820 ####[facility] [address] [place], [address] Absolute Neut 3.8 X10 3/uL Normal 2.0-7.7 [facility] Comment on above: Order Comment: 514.1 Performed By: #### L 100.0100, L500.2500, L501.6710, L501.8820 ####[facility] [address] [place], [address] Basophils/100 WBC (Bld) 0.6 % Normal 0-1 [facility] Comment on above: Order Comment: 514.1 Performed By: #### L 100.0100, L500.2500, L501.6710, L501.8820 ####[facility] [address] [place], [address] Eosinophils/100 WBC (Bld) 3.6 % Normal 0-5 [facility] Comment on above: Order Comment: 514.1 Performed By: #### L 100.0100, L500.2500, L501.6710, L501.8820 ####[facility] [address] [place], [address] Erythrocyte distribution width (RBC) [Ratio] 17.3 % High 11.6-14.6 [facility] Comment on above: Order Comment: 514.1 Performed By: #### L 100.0100, L500.2500, L501.6710, L501.8820 ####[facility] [address] [place], [address] Hematocrit (Bld) [Volume fraction] 30.2 % Low 37-47 [facility] Comment on above: Order Comment: 514.1 Performed By: #### L 100.0100, L500.2500, L501.6710, L501.8820 ####[facility] [address] [place], [address] Hemoglobin (Bld) [Mass/Vol] 9.1 g/dL Low 12.0-15.0 [facility] Comment on above: Order Comment: 514.1 Performed By: #### L 100.0100, L500.2500, L501.6710, L501.8820 ####[facility] [address] [place], [address] IG% 0.400 Normal 0.0-0.9 [facility] Comment on above: Order Comment: 514.1 Result Comment: IG% - Immature Granulocytes (promyelocytes, myelocytes andmetamyelocytes) > 1% indicates that a LEFT SHIFT is Present. Performed By: #### L 100.0100, L500.2500, L501.6710, L501.8820 ####[facility] [address] [place], [address] Lymphocytes/100 WBC (Bld) 31.5 % Normal 19-41 [facility] Comment on above: Order Comment: 514.1 Performed By: #### L 100.0100, L500.2500, L501.6710, L501.8820 ####[facility] [address] [place], [address] MCH (RBC) [Entitic mass] 26.4 pg Low 27.0-32.0 [facility] Comment on above: Order Comment: 514.1 Performed By: #### L 100.0100, L500.2500, L501.6710, L501.8820 ####[facility] [address] [place], [address] MCHC (RBC) [Mass/Vol] 30.1 g/dL Low 32-36 [facility] Comment on above: Order Comment: 514.1 Performed By: #### L 100.0100, L500.2500, L501.6710, L501.8820 ####[facility] [address] [place], [address] MCV (RBC) [Entitic vol] 87.5 fL Normal 81-99 [facility] Comment on above: Order Comment: 514.1 Performed By: #### L 100.0100, L500.2500, L501.6710, L501.8820 ####[facility] [address] [place], [address] Monocytes/100 WBC (Bld) 7.5 % Normal 0-10 [facility] Comment on above: Order Comment: 514.1 Performed By: #### L 100.0100, L500.2500, L501.6710, L501.8820 ####[facility] [address] [place], [address] Neutrophils/100 WBC (Bld) 56.4 % Normal 47-70 [facility] Comment on above: Order Comment: 514.1 Performed By: #### L 100.0100, L500.2500, L501.6710, L501.8820 ####[facility] [address] [place], [address] Nucleated RBC (Bld) [#/Vol] 0 10*3/uL Normal 0-5 [facility] Comment on above: Order Comment: 514.1 Performed By: #### L 100.0100, L500.2500, L501.6710, L501.8820 ####[facility] [address] [place], [address] Platelet mean volume (Bld) [Entitic vol] 8.5 fL Normal 6.2-12.0 [facility] Comment on above: Order Comment: 514.1 Performed By: #### L 100.0100, L500.2500, L501.6710, L501.8820 ####[facility] [address] [place], [address] Platelets (Bld) [#/Vol] 240 10*3/uL Normal 150-450 [facility] Comment on above: Order Comment: 514.1 Performed By: #### L 100.0100, L500.2500, L501.6710, L501.8820 ####[facility] [address] [place], [address] RBC (Bld) [#/Vol] 3.45 10*6/uL Low 4.2-5.4 [facility] Comment on above: Order Comment: 514.1 Performed By: #### L 100.0100, L500.2500, L501.6710, L501.8820 ####[facility] [address] [place], [address] RDW SD 56.0 fl High 35.1-43.9 [facility] Comment on above: Order Comment: 514.1 Performed By: #### L 100.0100, L500.2500, L501.6710, L501.8820 ####[facility] [address] [place], [address] WBC (Bld) [#/Vol] 6.7 10*3/uL Normal 4.4-11.0 [facility] Comment on above: Order Comment: 514.1 Performed By: #### L 100.0100, L500.2500, L501.6710, L501.8820 ####[facility] [address] [place], [address] CRPon 11-26-2023 C-REACTIVE PROT 62.00 mg/L High 0.0-3.0 [facility] Comment on above: Order Comment: 514.1 Result Comment: C-Re active Protein (CRP) provides useful information for thediagnosis, therapy and monitoring of inflammatory processesand associated diseases. For the evaluation of Relative Riskfor Cardiovascular Disease, a High Sensitivity CRP (HSCRP)should be ordered. Performed By: #### L 100.0100, L500.2500, L501.6710, L501.8820 ####[facility] [address] [place], [address] Vancomycin, Trough Levelon 0 8-19-2024 VANCO, TROUGH 27.3 ug/mL High 5.0-15.0 [facility] Comment on above: Order Comment: 514.1 0000 Result Comment: VANC OMYCIN STANDARED DRUG THERAPY TROUGH LEVEL: 5.0 - 15.0 mg/LVANCOMYCIN HIGH INTENSITY THERAPY TROUGH LEVEL: 15.0 - 20.0 mg/LHigh Intensity therapy recommended for serious lifethreatening infections include:- Wweegrqtxy-Tjhcynykpktt-Ilzibeujf (Ventilator/Healtcare Associated)-SepsisPLEASE CONTACT PHARMACY SERVICES (#6939) FOR INTERPRETATIONOF RESULTS. Performed By: #### L 100.0100, L500.2500, L501.6710, L501.8820 ####[facility] [address] [place], [address] Basic Metabolic Profile (BMP )on 11-21-2023 BUN/CRE 21.1 RATIO High 10-20 [facility] Comment on above: Order Comment: 514-1 Performed By: #### L 100.0100, L500.2500 ####[facility] [address] [place], [address] CA,Total 8.6 mg/dL Normal 8.5-10.1 [facility] Comment on above: Order Comment: 514-1 Performed By: #### L 100.0100, L500.2500 ####[facility] [address] [place], [address] Chloride [Moles/Vol] 101 mmol/L Normal 98-107 [facility] Comment on above: Order Comment: 514-1 Performed By: #### L 100.0100, L500.2500 ####[facility] [address] [place], [address] CO2 [Moles/Vol] 29.0 mmol/L Normal 21.0-32.0 [facility] Comment on above: Order Comment: 514-1 Performed By: #### L 100.0100, L500.2500 ####[facility] [address] [place], [address] Creatinine [Mass/Vol] 0.62 mg/dL Normal 0.55-1.02 [facility] Comment on above: Order Comment: 514- Result Comment: The validity of the calculated GFR GFRAA in patients over70 years has not been determined. Clinical correlation isessential. Performed By: #### L 100.0100, L500.2500 ####[facility] [address] [place], [address] EST GFR - AA 122 mL/min Normal >60 [facility] Comment on above: Order Comment: 514- Result Comment: Afri can Niuean GFR Calc Performed By: #### L 100.0100, L500.2500 ####[facility] [address] [place], [address] GAP 6 Normal 5-15 [facility] Comment on above: Order Comment: - Performed By: #### L 100.0100, L500.2500 ####[facility] [address] [place], [address] GFR/1.73 sq M.predicted among non-blacks MDRD (S/P/Bld) [Vol rate/Area] 100 mL/min/{1.73_m2} Normal >60 [facility] Comment on above: Order Comment: - Result Comment: Non- GFR Calc Performed By: #### L 100.0100, L500.2500 ####[facility] [address] [place], [address] Glucose [Mass/Vol] 134 mg/dL High 74-106 [facility] Comment on above: Order Comment: 514- Result Comment: Fast ing Glucose result greater than or equal to 126 mg/dLsuggests DIABETES MELLITUS per A.D.A. criteria. Performed By: #### L 100.0100, L500.2500 ####[facility] [address] [place], [address] Potassium [Moles/Vol] 3.4 mmol/L Low 3.5-5.1 [facility] Comment on above: Order Comment: 514-1 Performed By: #### L 100.0100, L500.2500 ####[facility] [address] [place], [address] Sodium [Moles/Vol] 136 mmol/L Normal 136-145 [facility] Comment on above: Order Comment: 514-1 Performed By: #### L 100.0100, L500.2500 ####[facility] [address] [place], [address] Urea nitrogen [Mass/Vol] 13 mg/dL Normal 7-18 [facility] Comment on above: Order Comment: 514-1 Performed By: #### L 100.0100, L500.2500 ####[facility] [address] [place], [address] CBC W/Diff, Automatedon 08-04 12-2023 Absolute Lymph 1.69 X10 3/uL Normal 0.83-4.51 [facility] Comment on above: Order Comment: 514-1 Performed By: #### L 100.0100, L500.2500 ####[facility] [address] [place], [address] Absolute Neut 5.1 X10 3/uL Normal 2.0-7.7 [facility] Comment on above: Order Comment: 514-1 Performed By: #### L 100.0100, L500.2500 ####[facility] [address] [place], [address] Basophils/100 WBC (Bld) 0.5 % Normal 0-1 [facility] Comment on above: Order Comment: 514-1 Performed By: #### L 100.0100, L500.2500 ####[facility] [address] [place], [address] Eosinophils/100 WBC (Bld) 2.9 % Normal 0-5 [facility] Comment on above: Order Comment: 514-1 Performed By: #### L 100.0100, L500.2500 ####[facility] [address] [place], [address] Erythrocyte distribution width (RBC) [Ratio] 17.3 % High 11.6-14.6 [facility] Comment on above: Order Comment: 514-1 Performed By: #### L 100.0100, L500.2500 ####[facility] [address] [place], [address] Hematocrit (Bld) [Volume fraction] 27.1 % Low 37-47 [facility] Comment on above: Order Comment: 514-1 Performed By: #### L 100.0100, L500.2500 ####[facility] [address] [place], [address] Hemoglobin (Bld) [Mass/Vol] 8.4 g/dL Low 12.0-15.0 [facility] Comment on above: Order Comment: 514-1 Performed By: #### L 100.0100, L500.2500 ####[facility] [address] [place], [address] IG% 0.500 Normal 0.0-0.9 [facility] Comment on above: Order Comment: 514-1 Result Comment: IG% - Immature Granulocytes (promyelocytes, myelocytes andmetamyelocytes) > 1% indicates that a LEFT SHIFT is Present. Performed By: #### L 100.0100, L500.2500 ####[facility] [address] [place], [address] Lymphocytes/100 WBC (Bld) 21.5 % Normal 19-41 [facility] Comment on above: Order Comment: 514-1 Performed By: #### L 100.0100, L500.2500 ####[facility] [address] [place], [address] MCH (RBC) [Entitic mass] 27.0 pg Normal 27.0-32.0 [facility] Comment on above: Order Comment: 514-1 Performed By: #### L 100.0100, L500.2500 ####[facility] [address] [place], [address] MCHC (RBC) [Mass/Vol] 31.0 g/dL Low 32-36 [facility] Comment on above: Order Comment: 514-1 Performed By: #### L 100.0100, L500.2500 ####[facility] [address] [place], [address] MCV (RBC) [Entitic vol] 87.1 fL Normal 81-99 [facility] Comment on above: Order Comment: 514-1 Performed By: #### L 100.0100, L500.2500 ####[facility] [address] [place], [address] Monocytes/100 WBC (Bld) 9.3 % Normal 0-10 [facility] Comment on above: Order Comment: 514-1 Performed By: #### L 100.0100, L500.2500 ####[facility] [address] [place], [address] Neutrophils/100 WBC (Bld) 65.3 % Normal 47-70 [facility] Comment on above: Order Comment: 514-1 Performed By: #### L 100.0100, L500.2500 ####[facility] [address] [place], [address] Nucleated RBC (Bld) [#/Vol] 0 10*3/uL Normal 0-5 [facility] Comment on above: Order Comment: 514-1 Performed By: #### L 100.0100, L500.2500 ####[facility] [address] [place], [address] Platelet mean volume (Bld) [Entitic vol] 9.3 fL Normal 6.2-12.0 [facility] Comment on above: Order Comment: 514-1 Performed By: #### L 100.0100, L500.2500 ####[facility] [address] [place], [address] Platelets (Bld) [#/Vol] 195 10*3/uL Normal 150-450 [facility] Comment on above: Order Comment: 514-1 Performed By: #### L 100.0100, L500.2500 ####[facility] [address] [place], [address] RBC (Bld) [#/Vol] 3.11 10*6/uL Low 4.2-5.4 [facility] Comment on above: Order Comment: 514-1 Performed By: #### L 100.0100, L500.2500 ####[facility] [address] [place], [address] RDW SD 54.7 fl High 35.1-43.9 [facility] Comment on above: Order Comment: 514-1 Performed By: #### L 100.0100, L500.2500 ####[facility] [address] [place], [address] WBC (Bld) [#/Vol] 7.9 10*3/uL Normal 4.4-11.0 [facility] Comment on above: Order Comment: 514-1 Performed By: #### L 100.0100, L500.2500 ####[facility] [address] [place], [address] CBC panel Auto (Bld)on 11-19 Erythrocyte distribution width (RBC) [Ratio] 17.2 % High 11.5 - 14.5 % [place] Hematocrit (Bld) [Volume fraction] 26.5 % Low 36.0 - 46.0 % [place] Hemoglobin (Bld) [Mass/Vol] 8.3 g/dL Low 12.0 - 16.0 g/dL [place] Interpretation and review of laboratory results Abnormal [place] MCH (RBC) [Entitic mass] 27.3 pg 26.0 - 34.0 pg [place] MCHC (RBC) [Mass/Vol] 31.3 g/dL Low 32.0 - 36.0 g/dL [place] MCV (RBC) [Entitic vol] 87 fL 80 - 100 fL [place] Nucleated RBC/100 WBC (Bld) [Ratio] 0.0 % [place] Platelets (Bld) [#/Vol] 180 10*3/uL [place] RBC (Bld) [#/Vol] 3.04 10*6/uL Low [facility] WBC (Bld) [#/Vol] 7.5 10*3/uL [facility] Erythrocyte distribution width (RBC) [Ratio] 17.2 % High 11.5-14.5 [facility] Comment on above: Performed By: #### 1 9123-9 #### OMERO KNIGHT ([id number]) [facility] ([facility]) [address] [place] [address] Hematocrit (Bld) [Volume fraction] 26.5 % Low 36.0-46.0 [facility] Comment on above: Performed By: #### 1 9123-9 #### OMERO KNIGHT ([id number]) [facility] ([facility]) [address] [place] [address] Hemoglobin (Bld) [Mass/Vol] 8.3 g/dL Low 12.0-16.0 [facility] Comment on above: Performed By: #### 1 9123-9 #### OMERO KNIGHT (19796) [facility] ([facility]) [address] [place] [address] MCH (RBC) [Entitic mass] 27.3 pg Normal 26.0-34.0 [facility] Comment on above: Performed By: #### 1 9123-9 #### OMERO KNIGHT ([id number]) [facility] ([facility]) [address] [place] [address] MCHC (RBC) [Mass/Vol] 31.3 g/dL Low 32.0-36.0 [facility] Comment on above: Performed By: #### 1 9123-9 #### OMERO KNIGHT (19598) [facility] ([facility]) [address] [place] [address] MCV (RBC) [Entitic vol] 87 fL Normal 80-100 [facility] Comment on above: Performed By: #### 1 9123-9 #### OMERO KNIGHT ([id number]) [facility] ([facility]) [address] [place] [address] Nucleated RBC/100 WBC (Bld) [Ratio] 0.0 /100 WBCs Normal 0.0-0.0 [facility] Comment on above: Performed By: #### 1 9123-9 #### OMERO KNIGHT ([id number]) [facility] ([facility]) [address] [place] [address] Platelets (Bld) [#/Vol] 180 x10*3/uL Normal 150-450 [facility] Comment on above: Performed By: #### 1 9123-9 #### OMERO KNIGHT ([id number]) [facility] ([facility]) [address] [place] [address] RBC (Bld) [#/Vol] 3.04 x10*6/uL Low 4.00-5.20 [facility] Comment on above: Performed By: #### 1 9123-9 #### OMERO KNIGHT ([id number]) [facility] ([facility]) [address] [place] [address] WBC (Bld) [#/Vol] 7.5 x10*3/uL Normal 4.4-11.3 [facility] Comment on above: Performed By: #### 1 9123-9 #### OMERO KNIGHT (71982) [facility] ([facility]) [address] [place] [address] Glucose Test strip manual (B ld) [Mass/Vol]on 11-20-2023 Glucose [Mass/Vol] 118 mg/dL High 74 - 99 mg/dL [place] Interpretation and review of laboratory results Abnormal [facility] Glucose [Mass/Vol] 118 mg/dL High 74-99 [facility] Comment on above: Performed By: #### 1 9123-9 #### OMERO KNIGHT ([id number]) [facility] ([facility]) [address] [place] [address] Glucose [Mass/Vol] 135 mg/dL High 74 - 99 mg/dL [place] Interpretation and review of laboratory results Abnormal [facility] Glucose [Mass/Vol] 135 mg/dL High 74-99 [facility] Comment on above: Performed By: #### 1 9123-9 #### OMERO KNIGHT ([id number]) [facility] ([facility]) [address] [place] [phone] Magnesiumon 11-20-2023 Magnesium [Mass/Vol] 1.52 mg/dL Low 1.60 - 2.40 mg/dL [place] Magnesium [Mass/Vol] 1.52 mg/dL Low 1.60-2.40 [facility] Comment on above: Performed By: #### 1 9123-9 #### OMERO KNIGHT ([id number]) [facility] ([facility]) [address] [place], [place] [id number] No Panel Informationon 11-19 Interpretation and review of laboratory results Abnormal [facility] Renal function 2000 panelon 11-20-2023 Albumin BCP dye [Mass/Vol] 2.5 g/dL Low 3.4 - 5.0 g/dL [place] Anion gap [Moles/Vol] 13 mmol/L 10 - 2 0 mmol/L [place] Calcium [Mass/Vol] 8.1 mg/dL Low 8.6 - 10. 6 mg/dL [place] Chloride [Moles/Vol] 99 mmol/L 98 - 10 7 mmol/L [place] CO2 [Moles/Vol] 29 mmol/L 21 - 32 mmol/L [place] Creatinine [Mass/Vol] 0.60 mg/dL 0.50 - 1.05 mg/dL [place] eGFR - PINF [place] Glucose [Mass/Vol] 122 mg/dL High 74 - 99 mg/dL [place] Phosphate [Mass/Vol] 2.9 mg/dL 2.5 - 4 .9 mg/dL [place] Potassium [Moles/Vol] 3.7 mmol/L 3.5 - 5.3 mmol/L [place] Sodium [Moles/Vol] 137 mmol/L 136 - 145 mmol/L [place] Urea nitrogen [Mass/Vol] 12 mg/dL 6 - 23 mg/dL [place] Albumin BCP dye [Mass/Vol] 2.5 g/dL Low 3.4-5.0 [facility] Comment on above: Performed By: #### 1 9123-9 #### OMERO KNIGHT (33274) [facility] ([facility]) [address] [place] [address] Anion gap [Moles/Vol] 13 mmol/L Normal 10-20 [facility] Comment on above: Performed By: #### 1 9123-9 #### OMERO KNIGHT ([id number]) [facility] ([facility]) [address] [place] [address] Calcium [Mass/Vol] 8.1 mg/dL Low 8.6-10.6 [facility] Comment on above: Performed By: #### 1 9123-9 #### OMERO KNIGHT ([id number]) [facility] ([facility]) [address] [place] [address]201 Chloride [Moles/Vol] 99 mmol/L Normal 98-107 [facility] Comment on above: Performed By: #### 1 9123-9 #### OMERO KNIGHT ([id number]) [facility] ([facility]) [address] [place] [address]191 CO2 [Moles/Vol] 29 mmol/L Normal 21-32 [facility] Comment on above: Performed By: #### 1 9123-9 #### OMERO KNIGHT (33708) [facility] ([facility]) [address] [place] [address] Creatinine [Mass/Vol] 0.60 mg/dL Normal 0.50-1.05 [facility] Comment on above: Performed By: #### 1 9123-9 #### OMERO KNIGHT ([id number]) [facility] ([facility]) [address] [place] [address] 13752 GFR/1.73 sq M.predicted MDRD (S/P/Bld) [Vol rate/Area] mL/min/{1.73_m2} Normal >60 [facility] Comment on above: Result Comment: Calc ulations of estimated GFR are performed using the 2020 CKD-EPI Study Refit equation without the race variable for the IDMS-Traceable creatinine methods. https://jasn.asnjournals.org/content/early//ASN.06312 06813 Performed By: #### 1 9123-9 #### OMERO KNIGHT ([id number]) [facility] ([facility]) [address] [place] [address] 64458 Glucose [Mass/Vol] 122 mg/dL High 74-99 [facility] Comment on above: Performed By: #### 1 9123-9 #### OMERO KNIGHT (88264) [facility] ([facility]) [address] [place] [address] 37239 Phosphate [Mass/Vol] 2.9 mg/dL Normal 2.5-4.9 [facility] Comment on above: Result Comment: The performance characteristics of phosphorus testing in heparinized plasma have been validated by the individual laboratory site where testing is performed. Testing on heparinized plasma is not approved by the FDA; however, such approval is not necessary. Performed By: #### 1 9123-9 #### OMERO KNIGHT ([id number]) [facility] ([facility]) [address] [place] [address] 12427 Potassium [Moles/Vol] 3.7 mmol/L Normal 3.5-5.3 [facility] Comment on above: Performed By: #### 1 9123-9 #### OMERO KNIGHT (25426) [facility] ([facility]) [address] [place] [address] Sodium [Moles/Vol] 137 mmol/L Normal 136-145 [facility] Comment on above: Performed By: #### 1 9123-9 #### OMERO KNIGHT (84772) [facility] ([facility]) [facility] [place] [address] Urea nitrogen [Mass/Vol] 12 mg/dL Normal 6-23 [facility] Comment on above: Performed By: #### 1 9123-9 #### OMERO KNIGHT ([id number]) [facility] ([facility]) [address] [place] [address] 15682 Vancomycinon 11-20-2023 Vancomycin [Mass/Vol] 15.0 ug/mL 5.0 - 20.0 ug/mL [place] Vancomycin [Mass/Vol] 15.0 ug/mL Normal 5.0-20.0 [facility] Comment on above: Order Comment: Vanco [...] By: #### 1 9123-9 #### OMERO KNIGHT ([id number]) [facility] ([facility]) [address] [place] [address] 00310 Vancomycin [Mass/Vol]on 11-07 Interpretation and review of laboratory results Normal [facility] 25-hydroxyvitamin D3 [Mass/V ol]on 11-19-2023 [place] CBC W Auto Differential pane l (Bld)on 11-19-2023 Basophils (Bld) [#/Vol] 0.03 10*3/uL [place] Basophils/100 WBC (Bld) 0.4 % 0.0 - 2.0 % [place] Eosinophils (Bld) [#/Vol] 0.20 10*3/uL [place] Eosinophils/100 WBC (Bld) 2.5 % 0.0 - 6.0 % [place] Erythrocyte distribution width (RBC) [Ratio] 17.1 % High 11.5 - 14.5 % [place] Hematocrit (Bld) [Volume fraction] 27.2 % Low 36.0 - 46.0 % [place] Hemoglobin (Bld) [Mass/Vol] 8.5 g/dL Low 12.0 - 16.0 g/dL [place] Immature granulocytes (Bld) [#/Vol] 0.04 10*3/uL [place] Immature granulocytes/100 WBC (Bld) 0.5 % 0.0 - 0.9 % [place] Interpretation and review of laboratory results Abnormal [place] Lymphocytes (Bld) [#/Vol] 2.39 10*3/uL [place] Lymphocytes/100 WBC (Bld) 29.8 % 13.0 - 44.0 % [place] MCH (RBC) [Entitic mass] 27.4 pg 26.0 - 34.0 pg [place] MCHC (RBC) [Mass/Vol] 31.3 g/dL Low 32.0 - 36.0 g/dL [place] MCV (RBC) [Entitic vol] 88 fL 80 - 100 fL [place] Monocytes (Bld) [#/Vol] 0.64 10*3/uL [place] Monocytes/100 WBC (Bld) 8.0 % 2.0 - 10.0 % [place] Neutrophils (Bld) [#/Vol] 4.73 10*3/uL [place] Neutrophils/100 WBC (Bld) 58.8 % 40.0 - 80.0 % [place] Nucleated RBC/100 WBC (Bld) [Ratio] 0.0 % [place] Platelets (Bld) [#/Vol] 178 10*3/uL [place] RBC (Bld) [#/Vol] 3.10 10*6/uL Low [facility] WBC (Bld) [#/Vol] 8.0 10*3/uL [facility] Basophils (Bld) [#/Vol] 0.03 x10*3/uL Normal 0.00-0.10 [facility] Comment on above: Performed By: #### 1 9123-9 #### OMERO KNIGHT ([id number]) [facility] ([facility]) [address] [place] [address] 26506 Basophils/100 WBC (Bld) 0.4 % Normal 0.0-2.0 [facility] Comment on above: Performed By: #### 1 9123-9 #### OMERO KNIGHT ([id number]) [facility] ([facility]) [address] [place] [address] 34879 Eosinophils (Bld) [#/Vol] 0.20 x10*3/uL Normal 0.00-0.40 [facility] Comment on above: Performed By: #### 1 9123-9 #### OMERO KNIGHT ([id number]) [facility] ([facility]) [address] [place] [address] 42512 Eosinophils/100 WBC (Bld) 2.5 % Normal 0.0-6.0 [facility] Comment on above: Performed By: #### 1 9123-9 #### OMERO KNIGHT ([id number]) [facility] ([facility]) [address] [place] [address] 20523 Erythrocyte distribution width (RBC) [Ratio] 17.1 % High 11.5-14.5 [facility] Comment on above: Performed By: #### 1 9123-9 #### OMERO KNIGHT ([id number]) [facility] ([facility]) [address] [place] [address] 71705 Hematocrit (Bld) [Volume fraction] 27.2 % Low 36.0-46.0 [facility] Comment on above: Performed By: #### 1 9123-9 #### OMERO KNIGHT ([id number]) [facility] ([facility]) [address] [place] [address] Hemoglobin (Bld) [Mass/Vol] 8.5 g/dL Low 12.0-16.0 [facility] Comment on above: Performed By: #### 1 9123-9 #### OMERO KNIGHT ([id number]) [facility] ([facility]) [address] [place] [address] 67880 Immature granulocytes (Bld) [#/Vol] 0.04 x10*3/uL Normal 0.00-0.50 [facility] Comment on above: Performed By: #### 1 9123-9 #### OMERO KNIGHT ([id number]) [facility] ([facility]) [address] [place] [address] 54925 Immature granulocytes/100 WBC (Bld) 0.5 % Normal 0.0-0.9 [facility] Comment on above: Result Comment: Martina ture Granulocyte Count (IG) includes promyelocytes, myelocytes and metamyelocytes but does not include bands. Percent differential counts (%) should be interpreted in the context of the absolute cell counts (cells/UL). Performed By: #### 1 9123-9 #### OMERO KNIGHT ([id number]) [facility] ([facility]) [address] [place] [address] 26675 Lymphocytes (Bld) [#/Vol] 2.39 x10*3/uL Normal 0.80-3.00 [facility] Comment on above: Performed By: #### 1 9123-9 #### OMERO KNIGHT ([id number]) [facility] ([facility]) [address] [place] [address] 24120 Lymphocytes/100 WBC (Bld) 29.8 % Normal 13.0-44.0 [facility] Comment on above: Performed By: #### 1 9123-9 #### OMERO KNIGHT ([id number]) [facility] ([facility]) [address] [place] [address] 14868 MCH (RBC) [Entitic mass] 27.4 pg Normal 26.0-34.0 [facility] Comment on above: Performed By: #### 1 9123-9 #### OMERO KNIGHT ([id number]) [facility] ([facility]) [address] [place] [address] 36554 MCHC (RBC) [Mass/Vol] 31.3 g/dL Low 32.0-36.0 [facility] Comment on above: Performed By: #### 1 9123-9 #### OMERO KNIGHT ([id number]) [facility] ([facility]) [address] [place] [address] 19584 MCV (RBC) [Entitic vol] 88 fL Normal 80-100 [facility] Comment on above: Performed By: #### 1 9123-9 #### OMERO KNIGHT ([id number]) [facility] ([facility]) [address] [place] [address] 24145 Monocytes (Bld) [#/Vol] 0.64 x10*3/uL Normal 0.05-0.80 [facility] Comment on above: Performed By: #### 1 9123-9 #### OMERO KNIGHT ([id number]) [facility] ([facility]) [address] [place] [address] 39328 Monocytes/100 WBC (Bld) 8.0 % Normal 2.0-10.0 [facility] Comment on above: Performed By: #### 1 9123-9 #### OMERO KNIGHT ([id number]) [facility] ([facility]) [address] [place] [address] 14676 Neutrophils (Bld) [#/Vol] 4.73 x10*3/uL Normal 1.60-5.50 [facility] Comment on above: Result Comment: Perc ent differential counts (%) should be interpreted in the context of the absolute cell counts (cells/uL). Performed By: #### 1 9123-9 #### OMERO KNIGHT ([id number]) [facility] ([facility]) [address] [place] [address] 89794 Neutrophils/100 WBC (Bld) 58.8 % Normal 40.0-80.0 [facility] Comment on above: Performed By: #### 1 9123-9 #### OMERO KNIGHT ([id number]) [facility] ([facility]) [address] [place] [address] 91388 Nucleated RBC/100 WBC (Bld) [Ratio] 0.0 /100 WBCs Normal 0.0-0.0 [facility] Comment on above: Performed By: #### 1 9123-9 #### OMERO KNIGHT ([id number]) [facility] ([facility]) [address] [place] [address] 99147 Platelets (Bld) [#/Vol] 178 x10*3/uL Normal 150-450 [facility] Comment on above: Performed By: #### 1 9123-9 #### OMERO KNIGHT ([id number]) [facility] ([facility]) [address] [place] [address] 66820 RBC (Bld) [#/Vol] 3.10 x10*6/uL Low 4.00-5.20 [facility] Comment on above: Performed By: #### 1 9123-9 #### OMERO KNIGHT ([id number]) [facility] ([facility]) [address] [place] [address] 78574 WBC (Bld) [#/Vol] 8.0 x10*3/uL Normal 4.4-11.3 [facility] Comment on above: Performed By: #### 1 9123-9 #### OMERO KNIGHT ([id number]) [facility] ([facility]) [address] [place] [address] 07762 Calcidiolon 11-19-2023 25-hydroxyvitamin D3 [Mass/Vol] 51 ng/mL Normal 30-100 [facility] Comment on above: Order Comment: Defic iency: < 20 ng/mlInsufficiency: 20-29 ng/mlSufficiency: 30-100 ng/mlThis assay accurately quantifies the sum of Vitamin D3, 25-Hydroxy and Vitamin D2,25-Hydroxy. Performed By: #### 1 9123-9 #### OMERO KNIGHT ([id number]) [facility] ([facility]) [address] [place] [address] 74541 Cobalaminson 11-19-2023 Cobalamin (Vitamin B12) [Mass/Vol] 374 pg/mL Normal 211-911 [facility] Comment on above: Performed By: #### 1 9123-9 #### OMERO KNIGHT ([id number]) [facility] ([facility]) [address] [place] [address] 16529 Glucose Test strip manual (B ld) [Mass/Vol]on 11-19-2023 Glucose [Mass/Vol] 170 mg/dL High 74 - 99 mg/dL [place] Interpretation and review of laboratory results Abnormal [facility] Glucose [Mass/Vol] 170 mg/dL High 74-99 [facility] Comment on above: Performed By: #### 1 9123-9 #### OMERO KNIGHT ([id number]) [facility] ([facility]) [address] [place] [address] 15332 Glucose [Mass/Vol] 189 mg/dL High 74 - 99 mg/dL [place] Interpretation and review of laboratory results Abnormal [facility] Glucose [Mass/Vol] 189 mg/dL High 74-99 [facility] Comment on above: Performed By: #### 1 9123-9 #### OMERO KNIGHT ([id number]) [facility] ([facility]) [address] [place] [address] 01421 Glucose [Mass/Vol] 157 mg/dL High 74 - 99 mg/dL [place] Interpretation and review of laboratory results Abnormal [facility] Glucose [Mass/Vol] 157 mg/dL High 74-99 [facility] Comment on above: Performed By: #### 1 9123-9 #### OMERO KNIGHT ([id number]) [facility] ([facility]) [address] [place] [address] 04980 Glucose [Mass/Vol] 124 mg/dL High 74 - 99 mg/dL [place] Interpretation and review of laboratory results Abnormal [facility] Glucose [Mass/Vol] 124 mg/dL High 74-99 [facility] Comment on above: Performed By: #### 1 9123-9 #### OMERO KNIGHT ([id number]) [facility] ([facility]) [address] [place] [address], [place] [address] Magnesiumon 11-19-2023 Magnesium [Mass/Vol] 1.46 mg/dL Low 1.60 - 2.40 mg/dL [place] Magnesium [Mass/Vol] 1.46 mg/dL Low 1.60-2.40 [facility] Comment on above: Performed By: #### 1 9123-9 #### JAMIL EUGENE ([id number]) [facility] ([facility]) [facility] [place] [address] No Panel Informationon 11-18 Interpretation and review of laboratory results Normal [facility] Interpretation and review of laboratory results Abnormal [facility] Renal function 2000 panelon 11-19-2023 Albumin BCP dye [Mass/Vol] 2.4 g/dL Low 3.4 - 5.0 g/dL [place] Anion gap [Moles/Vol] 11 mmol/L 10 - 2 0 mmol/L [place] Calcium [Mass/Vol] 8.0 mg/dL Low 8.6 - 10. 6 mg/dL [place] Chloride [Moles/Vol] 100 mmol/L 98 - 10 7 mmol/L [place] CO2 [Moles/Vol] 31 mmol/L 21 - 32 mmol/L [place] Creatinine [Mass/Vol] 0.61 mg/dL 0.50 - 1.05 mg/dL [place] eGFR - PINF [place] Glucose [Mass/Vol] 122 mg/dL High 74 - 99 mg/dL [place] Phosphate [Mass/Vol] 2.8 mg/dL 2.5 - 4 .9 mg/dL [place] Potassium [Moles/Vol] 3.8 mmol/L 3.5 - 5.3 mmol/L [place] Sodium [Moles/Vol] 138 mmol/L 136 - 145 mmol/L [place] Urea nitrogen [Mass/Vol] 14 mg/dL 6 - 23 mg/dL [place] Albumin BCP dye [Mass/Vol] 2.4 g/dL Low 3.4-5.0 [facility] Comment on above: Performed By: #### 1 9123-9 #### OMERO KNIGHT ([id number]) [facility] ([facility]) [facility] [place] [address] Anion gap [Moles/Vol] 11 mmol/L Normal 10-20 [facility] Comment on above: Performed By: #### 1 9123-9 #### OMERO KNIGHT ([id number]) [facility] ([facility]) [address] [place] [address] 76795 Calcium [Mass/Vol] 8.0 mg/dL Low 8.6-10.6 [facility] Comment on above: Performed By: #### 1 9123-9 #### OMERO KNIGHT ([id number]) [facility] ([facility]) [address] [place] [address] 13539 Chloride [Moles/Vol] 100 mmol/L Normal 98-107 [facility] Comment on above: Performed By: #### 1 9123-9 #### OMERO KNIGHT ([id number]) [facility] ([facility]) [address] [place] [address] 58917 CO2 [Moles/Vol] 31 mmol/L Normal 21-32 [facility] Comment on above: Performed By: #### 1 9123-9 #### OMERO KNIGHT ([id number]) [facility] ([facility]) [facility] [place] [address] Creatinine [Mass/Vol] 0.61 mg/dL Normal 0.50-1.05 [facility] Comment on above: Performed By: #### 1 9123-9 #### OMERO KNIGHT ([id number]) [facility] ([facility]) [address] [place] [address] 74070 GFR/1.73 sq M.predicted MDRD (S/P/Bld) [Vol rate/Area] mL/min/{1.73_m2} Normal >60 [facility] Comment on above: Result Comment: Calc ulations of estimated GFR are performed using the 2020 CKD-EPI Study Refit equation without the race variable for the IDMS-Traceable creatinine methods. https://jasn.asnjournals.org/content/early/ASN.24499 09719 Performed By: #### 1 9123-9 #### OMERO KNIGHT ([id number]) [facility] ([facility]) [address] [place] [address] 93457 Glucose [Mass/Vol] 122 mg/dL High 74-99 [facility] Comment on above: Performed By: #### 1 9123-9 #### OMERO KNIGHT ([id number]) [facility] ([facility]) [address] [place] [address] 29554 Phosphate [Mass/Vol] 2.8 mg/dL Normal 2.5-4.9 [facility] Comment on above: Result Comment: The performance characteristics of phosphorus testing in heparinized plasma have been validated by the individual laboratory site where testing is performed. Testing on heparinized plasma is not approved by the FDA; however, such approval is not necessary. Performed By: #### 1 9123-9 #### OMERO KNIGHT ([id number]) [facility] ([facility]) [address] [place] [address] 22298 Potassium [Moles/Vol] 3.8 mmol/L Normal 3.5-5.3 [facility] Comment on above: Performed By: #### 1 9123-9 #### OMERO KNIGHT ([id number]) [facility] ([facility]) [address] [place] [address] 45752 Sodium [Moles/Vol] 138 mmol/L Normal 136-145 [facility] Comment on above: Performed By: #### 1 9123-9 #### OMERO KNIGHT ([id number]) [facility] ([facility]) [address] [place] [address] 45851 Urea nitrogen [Mass/Vol] 14 mg/dL Normal 6-23 [facility] Comment on above: Performed By: #### 1 9123-9 #### OMERO KNIGHT ([id number]) [facility] ([facility]) [address] [place] [address] 98287 TSH WITH REFLEX TO FREE T4 I F ABNORMALon 11-19-2023 TSH Qn 0.45 m[IU]/L Normal 0.44-3.98 [facility] Comment on above: Order Comment: TSH t esting is performed using different testing methodology at [facility] than at other [facility]. Direct result comparisons should only be made within the same method. Performed By: #### 1 9123-9 #### OMERO KNIGHT ([id number]) [facility] ([facility]) [facility] [place] [address] TSH with reflex to Free T4 i f abnormalon 11-19-2023 Interpretation and review of laboratory results Normal [place] TSH Qn 0.45 m[IU]/L [facility] Vancomycinon 11-19-2023 Vancomycin [Mass/Vol] 16.0 ug/mL 5.0 - 20.0 ug/mL [place] Vancomycin [Mass/Vol] 16.0 ug/mL Normal 5.0-20.0 [facility] Comment on above: Order Comment: Vanco [...] By: #### 1 9123-9 #### OMERO KNIGHT ([id number]) [facility] ([facility]) [facility] [place] [phone] Vancomycin [Mass/Vol]on 11-07 Interpretation and review of laboratory results Normal [facility] Vitamin B12on 11-19-2023 Cobalamin (Vitamin B12) [Mass/Vol] 374 pg/mL 211 - 911 pg/mL [place] Vitamin D 25-Hydroxy,Total ( for eval of Vitamin D levels)on 11-19-2023 25-hydroxyvitamin D3 [Mass/Vol] 51 ng/mL 30 - 100 ng/mL [place] CBC W Auto Differential pane l (Bld)on 11-18-2023 Basophils (Bld) [#/Vol] 0.03 10*3/uL [place] Basophils/100 WBC (Bld) 0.3 % 0.0 - 2.0 % [place] Eosinophils (Bld) [#/Vol] 0.22 10*3/uL [place] Eosinophils/100 WBC (Bld) 2.5 % 0.0 - 6.0 % [place] Erythrocyte distribution width (RBC) [Ratio] 16.5 % High 11.5 - 14.5 % [place] Hematocrit (Bld) [Volume fraction] 28.0 % Low 36.0 - 46.0 % [place] Hemoglobin (Bld) [Mass/Vol] 8.7 g/dL Low 12.0 - 16.0 g/dL [place] Immature granulocytes (Bld) [#/Vol] 0.04 10*3/uL [place] Immature granulocytes/100 WBC (Bld) 0.5 % 0.0 - 0.9 % [place] Interpretation and review of laboratory results Abnormal [place] Lymphocytes (Bld) [#/Vol] 3.01 10*3/uL High [place] Lymphocytes/100 WBC (Bld) 34.3 % 13.0 - 44.0 % [place] MCH (RBC) [Entitic mass] 26.9 pg 26.0 - 34.0 pg [place] MCHC (RBC) [Mass/Vol] 31.1 g/dL Low 32.0 - 36.0 g/dL [place] MCV (RBC) [Entitic vol] 87 fL 80 - 100 fL [place] Monocytes (Bld) [#/Vol] 0.77 10*3/uL [place] Monocytes/100 WBC (Bld) 8.8 % 2.0 - 10.0 % [place] Neutrophils (Bld) [#/Vol] 4.70 10*3/uL [place] Neutrophils/100 WBC (Bld) 53.6 % 40.0 - 80.0 % [place] Nucleated RBC/100 WBC (Bld) [Ratio] 0.0 % [place] Platelets (Bld) [#/Vol] 186 10*3/uL [place] RBC (Bld) [#/Vol] 3.23 10*6/uL Low [facility] WBC (Bld) [#/Vol] 8.8 10*3/uL [facility] Basophils (Bld) [#/Vol] 0.03 x10*3/uL Normal 0.00-0.10 [facility] Comment on above: Performed By: #### 5 0190-8 #### OMERO KNIGHT ([id number]) [facility] ([facility]) [address] [place] [address] 93943 Basophils/100 WBC (Bld) 0.3 % Normal 0.0-2.0 [facility] Comment on above: Performed By: #### 5 0190-8 #### OMERO KNIGHT ([id number]) [facility] ([facility]) [address] [place] [address] 60259 Eosinophils (Bld) [#/Vol] 0.22 x10*3/uL Normal 0.00-0.40 [facility] Comment on above: Performed By: #### 5 0190-8 #### OMERO KNIGHT ([id number]) [facility] ([facility]) [address] [place] [address] 58464 Eosinophils/100 WBC (Bld) 2.5 % Normal 0.0-6.0 [facility] Comment on above: Performed By: #### 5 0190-8 #### OMERO KNIGHT ([id number]) [facility] ([facility]) [address] [place] [address] 24661 Erythrocyte distribution width (RBC) [Ratio] 16.5 % High 11.5-14.5 [facility] Comment on above: Performed By: #### 5 0190-8 #### OMERO KNIGHT ([id number]) [facility] ([facility]) [address] [place] [address] 96495 Hematocrit (Bld) [Volume fraction] 28.0 % Low 36.0-46.0 [facility] Comment on above: Performed By: #### 5 0190-8 #### OMERO KNIGHT ([id number]) [facility] ([facility]) [address] [place] [address] 19456 Hemoglobin (Bld) [Mass/Vol] 8.7 g/dL Low 12.0-16.0 [facility] Comment on above: Performed By: #### 5 0190-8 #### OMERO KNIGHT (32531) [facility] ([facility]) [address] [place] [address] 52784 Immature granulocytes (Bld) [#/Vol] 0.04 x10*3/uL Normal 0.00-0.50 [facility] Comment on above: Performed By: #### 5 0190-8 #### OMERO KNIGHT ([id number]) [facility] ([facility]) [address] [place] [address] 82328 Immature granulocytes/100 WBC (Bld) 0.5 % Normal 0.0-0.9 [facility] Comment on above: Result Comment: Martina ture Granulocyte Count (IG) includes promyelocytes, myelocytes and metamyelocytes but does not include bands. Percent differential counts (%) should be interpreted in the context of the absolute cell counts (cells/UL). Performed By: #### 5 0190-8 #### OMERO KNIGHT ([id number]) [facility] ([facility]) [address] [place] [address] 22083 Lymphocytes (Bld) [#/Vol] 3.01 x10*3/uL High 0.80-3.00 [facility] Comment on above: Performed By: #### 5 0190-8 #### OMERO KNIGHT ([id number]) [facility] ([facility]) [address] [place] [address] 44112 Lymphocytes/100 WBC (Bld) 34.3 % Normal 13.0-44.0 [facility] Comment on above: Performed By: #### 5 0190-8 #### OMERO KNIGHT ([id number]) [facility] ([facility]) [address] [place] [address] 81408 MCH (RBC) [Entitic mass] 26.9 pg Normal 26.0-34.0 [facility] Comment on above: Performed By: #### 5 0190-8 #### OMERO KNIGHT (60559) [facility] ([facility]) [address] [place] [address] 42164 MCHC (RBC) [Mass/Vol] 31.1 g/dL Low 32.0-36.0 [facility] Comment on above: Performed By: #### 5 0190-8 #### OMERO KNIGHT ([id number]) [facility] ([facility]) [address] [place] [address] 66300 MCV (RBC) [Entitic vol] 87 fL Normal 80-100 [facility] Comment on above: Performed By: #### 5 0190-8 #### OMERO KNIGHT ([id number]) [facility] ([facility]) [address] [place] [address] 99718 Monocytes (Bld) [#/Vol] 0.77 x10*3/uL Normal 0.05-0.80 [facility] Comment on above: Performed By: #### 5 0190-8 #### OMERO KNIGHT ([id number]) [facility] ([facility]) [address] [place] [address] 22533 Monocytes/100 WBC (Bld) 8.8 % Normal 2.0-10.0 [facility] Comment on above: Performed By: #### 5 0190-8 #### OMERO KNIGHT ([id number]) [facility] ([facility]) [address] [place] [address] 80392 Neutrophils (Bld) [#/Vol] 4.70 x10*3/uL Normal 1.60-5.50 [facility] Comment on above: Result Comment: Perc ent differential counts (%) should be interpreted in the context of the absolute cell counts (cells/uL). Performed By: #### 5 0190-8 #### OMERO KNIGHT ([id number]) [facility] ([facility]) [address] [place] [address] 33353 Neutrophils/100 WBC (Bld) 53.6 % Normal 40.0-80.0 [facility] Comment on above: Performed By: #### 5 0190-8 #### OMERO KNIGHT ([id number]) [facility] ([facility]) [address] [place] [address] 39099 Nucleated RBC/100 WBC (Bld) [Ratio] 0.0 /100 WBCs Normal 0.0-0.0 [facility] Comment on above: Performed By: #### 5 0190-8 #### OMERO KNIGHT ([id number]) [facility] ([facility]) [address] [place] [address] 29561 Platelets (Bld) [#/Vol] 186 x10*3/uL Normal 150-450 [facility] Comment on above: Performed By: #### 5 0190-8 #### OMERO KNIGHT ([id number]) [facility] ([facility]) [address] [place] [address] 19309 RBC (Bld) [#/Vol] 3.23 x10*6/uL Low 4.00-5.20 [facility] Comment on above: Performed By: #### 5 0190-8 #### OMERO KNIGHT ([id number]) [facility] ([facility]) [address] [place] [address] 56246 WBC (Bld) [#/Vol] 8.8 x10*3/uL Normal 4.4-11.3 [facility] Comment on above: Performed By: #### 5 0190-8 #### OMERO KNIGHT ([id number]) [facility] ([facility]) [address] [place] [address] 49108 Glucose Test strip manual (B ld) [Mass/Vol]on 11-18-2023 Glucose [Mass/Vol] 156 mg/dL High 74 - 99 mg/dL [place] Interpretation and review of laboratory results Abnormal [facility] Glucose [Mass/Vol] 156 mg/dL High 74-99 [facility] Comment on above: Performed By: #### 1 9123-9 #### OMERO KNIGHT ([id number]) [facility] ([facility]) [address] [place] [address] 12161 Glucose [Mass/Vol] 180 mg/dL High 74 - 99 mg/dL [place] Interpretation and review of laboratory results Abnormal [place] [facility] Glucose [Mass/Vol] 180 mg/dL High 74-99 [facility] Comment on above: Performed By: #### 1 9123-9 #### OMERO KNIGHT ([id number]) [facility] ([facility]) [address] [place] [address] 48597 Glucose [Mass/Vol] 173 mg/dL High 74 - 99 mg/dL [place] Interpretation and review of laboratory results Abnormal [facility] Glucose [Mass/Vol] 173 mg/dL High 74-99 [facility] Comment on above: Performed By: #### 1 9123-9 #### OMERO KNIGHT ([id number]) [facility] ([facility]) [address] [place] [address] 79860 Glucose [Mass/Vol] 130 mg/dL High 74 - 99 mg/dL [place] Interpretation and review of laboratory results Abnormal [facility] Glucose [Mass/Vol] 130 mg/dL High 74-99 [facility] Comment on above: Performed By: #### 1 9123-9 #### OMERO KNIGHT ([id number]) [facility] ([facility]) [address] [place] [address] 97312 Magnesiumon 11-18-2023 Magnesium [Mass/Vol] 1.52 mg/dL Low 1.60 - 2.40 mg/dL [place] Magnesium [Mass/Vol] 1.52 mg/dL Low 1.60-2.40 [facility] Comment on above: Performed By: #### 5 0190-8 #### OMERO KNIGHT ([id number]) [facility] ([facility]) [address] [place] [address] 32624 No Panel Informationon 11-17 Interpretation and review of laboratory results Abnormal [facility] Renal function 2000 panelon 08-11-2024 Albumin BCP dye [Mass/Vol] 2.5 g/dL Low 3.4 - 5.0 g/dL [place] Anion gap [Moles/Vol] 13 mmol/L 10 - 2 0 mmol/L [place] Calcium [Mass/Vol] 8.0 mg/dL Low 8.6 - 10. 6 mg/dL [place] Chloride [Moles/Vol] 98 mmol/L 98 - 10 7 mmol/L [place] CO2 [Moles/Vol] 30 mmol/L 21 - 32 mmol/L [place] Creatinine [Mass/Vol] 0.66 mg/dL 0.50 - 1.05 mg/dL [place] eGFR - PINF [place] Glucose [Mass/Vol] 126 mg/dL High 74 - 99 mg/dL [place] Phosphate [Mass/Vol] 2.6 mg/dL 2.5 - 4 .9 mg/dL [place] Potassium [Moles/Vol] 3.9 mmol/L 3.5 - 5.3 mmol/L [place] Sodium [Moles/Vol] 137 mmol/L 136 - 145 mmol/L [place] Urea nitrogen [Mass/Vol] 14 mg/dL 6 - 23 mg/dL [place] Albumin BCP dye [Mass/Vol] 2.5 g/dL Low 3.4-5.0 [facility] Comment on above: Performed By: #### 5 0190-8 #### OMERO KNIGHT ([id number]) [facility] ([facility]) [address] [place] [address] Anion gap [Moles/Vol] 13 mmol/L Normal 10-20 [facility] Comment on above: Performed By: #### 5 0190-8 #### OMERO KNIGHT ([id number]) [facility] ([facility]) [address] [place] [address] Calcium [Mass/Vol] 8.0 mg/dL Low 8.6-10.6 [facility] Comment on above: Performed By: #### 5 0190-8 #### OMERO KNIGHT ([id number]) [facility] ([facility]) [address] [place] [address] Chloride [Moles/Vol] 98 mmol/L Normal 98-107 [facility] Comment on above: Performed By: #### 5 0190-8 #### OMERO KNIGHT ([id number]) [facility] ([facility]) [facility] [place] [address] CO2 [Moles/Vol] 30 mmol/L Normal 21-32 [facility] Comment on above: Performed By: #### 5 0190-8 #### OMERO KNIGHT ([id number]) [facility] ([facility]) [address] [place] [address] 20714 Creatinine [Mass/Vol] 0.66 mg/dL Normal 0.50-1.05 [facility] Comment on above: Performed By: #### 5 0190-8 #### OMERO KNIGHT ([id number]) [facility] ([facility]) [address] [place] [address] 44807 GFR/1.73 sq M.predicted MDRD (S/P/Bld) [Vol rate/Area] mL/min/{1.73_m2} Normal >60 [facility] Comment on above: Result Comment: Calc ulations of estimated GFR are performed using the 2020 CKD-EPI Study Refit equation without the race variable for the IDMS-Traceable creatinine methods. https://jasn.asnjournals.org/content//ASN.34143 02708 Performed By: #### 5 0190-8 #### OMERO KNIGHT ([id number]) [facility] ([facility]) [address] [place] [address] 83264 Glucose [Mass/Vol] 126 mg/dL High 74-99 [facility] Comment on above: Performed By: #### 5 0190-8 #### OMERO KNIGHT ([id number]) [facility] ([facility]) [address] [place] [address] 46326 Phosphate [Mass/Vol] 2.6 mg/dL Normal 2.5-4.9 [facility] Comment on above: Result Comment: The performance characteristics of phosphorus testing in heparinized plasma have been validated by the individual laboratory site where testing is performed. Testing on heparinized plasma is not approved by the FDA; however, such approval is not necessary. Performed By: #### 5 0190-8 #### OMERO KNIGHT ([id number]) [facility] ([facility]) [address] [place], [place] [phone] Potassium [Moles/Vol] 3.9 mmol/L Normal 3.5-5.3 [facility] Comment on above: Performed By: #### 5 0190-8 #### OMERO KNIGHT ([id number]) [facility] ([facility]) [address] [place] [address] 00461 Sodium [Moles/Vol] 137 mmol/L Normal 136-145 [facility] Comment on above: Performed By: #### 5 0190-8 #### OMERO KNIGHT ([id number]) [facility] ([facility]) [address] [place] [address] 60339 Urea nitrogen [Mass/Vol] 14 mg/dL Normal 6-23 [facility] Comment on above: Performed By: #### 5 0190-8 #### OMERO KNIGHT ([id number]) [facility] ([facility]) [address] [place] [address] 40027 CBC W Auto Differential pane l (Bld)on 11-17-2023 Basophils (Bld) [#/Vol] 0.04 10*3/uL [place] Basophils/100 WBC (Bld) 0.6 % 0.0 - 2.0 % [place] Eosinophils (Bld) [#/Vol] 0.11 10*3/uL [place] Eosinophils/100 WBC (Bld) 1.5 % 0.0 - 6.0 % [place] Erythrocyte distribution width (RBC) [Ratio] 16.7 % High 11.5 - 14.5 % [place] Hematocrit (Bld) [Volume fraction] 29.3 % Low 36.0 - 46.0 % [place] Hemoglobin (Bld) [Mass/Vol] 9.1 g/dL Low 12.0 - 16.0 g/dL [place] Immature granulocytes (Bld) [#/Vol] 0.09 10*3/uL [place] Immature granulocytes/100 WBC (Bld) 1.2 % High 0.0 - 0.9 % [place] Interpretation and review of laboratory results Abnormal [place] Lymphocytes (Bld) [#/Vol] 2.57 10*3/uL [place] Lymphocytes/100 WBC (Bld) 35.4 % 13.0 - 44.0 % [place] MCH (RBC) [Entitic mass] 26.5 pg 26.0 - 34.0 pg [place] MCHC (RBC) [Mass/Vol] 31.1 g/dL Low 32.0 - 36.0 g/dL [place] MCV (RBC) [Entitic vol] 85 fL 80 - 100 fL [place] Monocytes (Bld) [#/Vol] 0.81 10*3/uL High [place] Monocytes/100 WBC (Bld) 11.2 % 2.0 - 10.0 % [place] Neutrophils (Bld) [#/Vol] 3.64 10*3/uL [place] Neutrophils/100 WBC (Bld) 50.1 % 40.0 - 80.0 % [place] Nucleated RBC/100 WBC (Bld) [Ratio] 0.0 % [place] Platelets (Bld) [#/Vol] 152 10*3/uL [place] RBC (Bld) [#/Vol] 3.43 10*6/uL Low [facility] WBC (Bld) [#/Vol] 7.3 10*3/uL [facility] Basophils (Bld) [#/Vol] 0.04 x10*3/uL Normal 0.00-0.10 [facility] Comment on above: Performed By: #### 5 0190-8 #### OMERO KNIGHT ([id number]) [facility] ([facility]) [address] [place] [address] Basophils/100 WBC (Bld) 0.6 % Normal 0.0-2.0 [facility] Comment on above: Performed By: #### 5 0190-8 #### OMERO KNIGHT ([id number]) [facility] ([facility]) [address] [place] [address] 20956 Eosinophils (Bld) [#/Vol] 0.11 x10*3/uL Normal 0.00-0.40 [facility] Comment on above: Performed By: #### 0-8 #### OMERO KNIGHT ([id number]) [facility] ([facility]) [address] [place], [place] [phone] Eosinophils/100 WBC (Bld) 1.5 % Normal 0.0-6.0 [facility] Comment on above: Performed By: #### 189-8 #### OMERO KNIGHT ([id number]) [facility] ([facility]) [address] [place] [address] Erythrocyte distribution width (RBC) [Ratio] 16.7 % High 11.5-14.5 [facility] Comment on above: Performed By: #### 189-8 #### OMERO KNIGHT ([id number]) [facility] ([facility]) [address] [place] [address] Hematocrit (Bld) [Volume fraction] 29.3 % Low 36.0-46.0 [facility] Comment on above: Performed By: #### 189-8 #### OMERO KNIGHT ([id number]) [facility] ([facility]) [address] [place], [place] [address] Hemoglobin (Bld) [Mass/Vol] 9.1 g/dL Low 12.0-16.0 [facility] Comment on above: Performed By: #### 0-8 #### OMERO KNIGHT ([id number]) [facility] ([facility]) [address] [place] [address] 92921 Immature granulocytes (Bld) [#/Vol] 0.09 x10*3/uL Normal 0.00-0.50 [facility] Comment on above: Performed By: #### 0-8 #### OMERO KNIGHT ([id number]) [facility] ([facility]) [address] [place] [address] 55337 Immature granulocytes/100 WBC (Bld) 1.2 % High 0.0-0.9 [facility] Comment on above: Result Comment: Martina ture Granulocyte Count (IG) includes promyelocytes, myelocytes and metamyelocytes but does not include bands. Percent differential counts (%) should be interpreted in the context of the absolute cell counts (cells/UL). Performed By: #### 5 0190-8 #### OMERO KNIGHT ([id number]) [facility] ([facility]) [address] [place] [address] Lymphocytes (Bld) [#/Vol] 2.57 x10*3/uL Normal 0.80-3.00 [facility] Comment on above: Performed By: #### 5 0190-8 #### OMERO KNIGHT ([id number]) [facility] ([facility]) [address] [place] [address] Lymphocytes/100 WBC (Bld) 35.4 % Normal 13.0-44.0 [facility] Comment on above: Performed By: #### 5 0190-8 #### OMERO KNIGHT ([id number]) [facility] ([facility]) [address] [place] [address] 23683 MCH (RBC) [Entitic mass] 26.5 pg Normal 26.0-34.0 [facility] Comment on above: Performed By: #### 5 0190-8 #### OMERO KNIGHT ([id number]) [facility] ([facility]) [address] [place] [address] MCHC (RBC) [Mass/Vol] 31.1 g/dL Low 32.0-36.0 [facility] Comment on above: Performed By: #### 5 0190-8 #### OMERO KNIGHT ([id number]) [facility] ([facility]) [address] [place], [place] [address] MCV (RBC) [Entitic vol] 85 fL Normal 80-100 [facility] Comment on above: Performed By: #### 5 0190-8 #### OMERO KNIGHT ([id number]) [facility] ([facility]) [address] [place] [address] 25895 Monocytes (Bld) [#/Vol] 0.81 x10*3/uL High 0.05-0.80 [facility] Comment on above: Performed By: #### 5 0190-8 #### OMERO KNIGHT ([id number]) [facility] ([facility]) [address] [place] [address] 38104 Monocytes/100 WBC (Bld) 11.2 % Normal 2.0-10.0 [facility] Comment on above: Performed By: #### 5 0-8 #### OMERO KNIGHT ([id number]) [facility] ([facility]) [address] [place] [address] 02773 Neutrophils (Bld) [#/Vol] 3.64 x10*3/uL Normal 1.60-5.50 [facility] Comment on above: Result Comment: Perc ent differential counts (%) should be interpreted in the context of the absolute cell counts (cells/uL). Performed By: #### 5 0190-8 #### OMERO KNIGHT ([id number]) [facility] ([facility]) [address] [place] [address] 93247 Neutrophils/100 WBC (Bld) 50.1 % Normal 40.0-80.0 [facility] Comment on above: Performed By: #### 5 0190-8 #### OMERO KNIGHT ([id number]) [facility] ([facility]) [address] [place] [address] 97087 Nucleated RBC/100 WBC (Bld) [Ratio] 0.0 /100 WBCs Normal 0.0-0.0 [facility] Comment on above: Performed By: #### 5 0190-8 #### OMERO KNIGHT ([id number]) [facility] ([facility]) [address] [place] [address] 54057 Platelets (Bld) [#/Vol] 152 x10*3/uL Normal 150-450 [facility] Comment on above: Performed By: #### 5 0190-8 #### OEMRO KNIGHT ([id number]) [facility] ([facility]) [address] [place] [address] 51699 RBC (Bld) [#/Vol] 3.43 x10*6/uL Low 4.00-5.20 [facility] Comment on above: Performed By: #### 0-8 #### OMERO KNIGHT ([id number]) [facility] ([facility]) [address] [place] [address] 28082 WBC (Bld) [#/Vol] 7.3 x10*3/uL Normal 4.4-11.3 [facility] Comment on above: Performed By: #### 189-8 #### OMERO KNIGHT ([id number]) [facility] ([facility]) [address] [place] [address] 64904 Glucose Test strip manual (B ld) [Mass/Vol]on 11-17-2023 Glucose [Mass/Vol] 169 mg/dL High 74 - 99 mg/dL [place] Interpretation and review of laboratory results Abnormal [facility] Glucose [Mass/Vol] 169 mg/dL High 74-99 [facility] Comment on above: Performed By: #### 0-8 #### OMERO KNIGHT ([id number]) [facility] ([facility]) [address] [place] [address] 45141 Glucose [Mass/Vol] 134 mg/dL High 74 - 99 mg/dL [place] Interpretation and review of laboratory results Abnormal [facility] Glucose [Mass/Vol] 134 mg/dL High 74-99 [facility] Comment on above: Performed By: #### 5 0-8 #### OMERO KNIGHT ([id number]) [facility] ([facility]) [address] [place] [address] 74394 Glucose [Mass/Vol] 152 mg/dL High 74 - 99 mg/dL [place] Interpretation and review of laboratory results Abnormal [facility] Glucose [Mass/Vol] 152 mg/dL High 74-99 [facility] Comment on above: Performed By: #### 0-8 #### OMERO KNIGHT ([id number]) [facility] ([facility]) [address] [place] [address] Glucose [Mass/Vol] 157 mg/dL High 74 - 99 mg/dL [place] Interpretation and review of laboratory results Abnormal [facility] Glucose [Mass/Vol] 157 mg/dL High 74-99 [facility] Comment on above: Performed By: #### 5 0190-8 #### OMERO KNIGHT (94051) [facility] ([facility]) [address] [place] [phone] Magnesiumon 11-17-2023 Magnesium [Mass/Vol] 1.47 mg/dL Low 1.60 - 2.40 mg/dL [place] Magnesium [Mass/Vol] 1.47 mg/dL Low 1.60-2.40 [facility] Comment on above: Performed By: #### 5 0190-8 #### OMERO KNIGHT ([id number]) [facility] ([facility]) [address] [place] [address] No Panel Informationon 11-16 Interpretation and review of laboratory results Abnormal [facility] Renal function 2000 panelon 11-17-2023 Albumin BCP dye [Mass/Vol] 2.4 g/dL Low 3.4 - 5.0 g/dL [place] Anion gap [Moles/Vol] 11 mmol/L 10 - 2 0 mmol/L [place] Calcium [Mass/Vol] 7.6 mg/dL Low 8.6 - 10. 6 mg/dL [place] Chloride [Moles/Vol] 99 mmol/L 98 - 10 7 mmol/L [place] CO2 [Moles/Vol] 31 mmol/L 21 - 32 mmol/L [place] Creatinine [Mass/Vol] 0.63 mg/dL 0.50 - 1.05 mg/dL [place] eGFR - PINF [place] Glucose [Mass/Vol] 130 mg/dL High 74 - 99 mg/dL [place] Phosphate [Mass/Vol] 2.9 mg/dL 2.5 - 4 .9 mg/dL [place] Potassium [Moles/Vol] 4.0 mmol/L 3.5 - 5.3 mmol/L [place] Sodium [Moles/Vol] 137 mmol/L 136 - 145 mmol/L [place] Urea nitrogen [Mass/Vol] 14 mg/dL 6 - 23 mg/dL [place] Albumin BCP dye [Mass/Vol] 2.4 g/dL Low 3.4-5.0 [facility] Comment on above: Performed By: #### 5 0190-8 #### OMERO KNIGHT ([id number]) [facility] ([facility]) [address] [place] [address] 74410 Anion gap [Moles/Vol] 11 mmol/L Normal 10-20 [facility] Comment on above: Performed By: #### 5 0-8 #### OMERO KNIGHT (29520) [facility] ([facility]) [address] [place] [address] 82388 Calcium [Mass/Vol] 7.6 mg/dL Low 8.6-10.6 [facility] Comment on above: Performed By: #### 5 0-8 #### OMERO KNIGHT ([id number]) [facility] ([facility]) [address] [place] [address] 62872 Chloride [Moles/Vol] 99 mmol/L Normal 98-107 [facility] Comment on above: Performed By: #### 5 0-8 #### OMERO KNIGHT ([id number]) [facility] ([facility]) [address] [place] [address] 11165 CO2 [Moles/Vol] 31 mmol/L Normal 21-32 [facility] Comment on above: Performed By: #### 5 0-8 #### OMERO KNIGHT (80658) [facility] ([facility]) [address] [place] [address] 63869 Creatinine [Mass/Vol] 0.63 mg/dL Normal 0.50-1.05 [facility] Comment on above: Performed By: #### 5 0-8 #### OMERO KNIGHT ([id number]) [facility] ([facility]) [address] [place] [address] GFR/1.73 sq M.predicted MDRD (S/P/Bld) [Vol rate/Area] mL/min/{1.73_m2} Normal >60 [facility] Comment on above: Result Comment: Calc ulations of estimated GFR are performed using the 2020 CKD-EPI Study Refit equation without the race variable for the IDMS-Traceable creatinine methods. https://jasn.asnjournals.org/content//ASN.81063 62725 Performed By: #### 5 0190-8 #### OMERO KNIGHT (67645) [facility] ([facility]) [address] [place] [address] 21503 Glucose [Mass/Vol] 130 mg/dL High 74-99 [facility] Comment on above: Performed By: #### 5 0190-8 #### OMERO KNIGHT ([id number]) [facility] ([facility]) [address] [place] [address] 34845 Phosphate [Mass/Vol] 2.9 mg/dL Normal 2.5-4.9 [facility] Comment on above: Result Comment: The performance characteristics of phosphorus testing in heparinized plasma have been validated by the individual laboratory site where testing is performed. Testing on heparinized plasma is not approved by the FDA; however, such approval is not necessary. Performed By: #### 5 0190-8 #### OMERO KNIGHT (18344) [facility] ([facility]) [address] [place] [address] 63380 Potassium [Moles/Vol] 4.0 mmol/L Normal 3.5-5.3 [facility] Comment on above: Performed By: #### 5 0190-8 #### OMERO KNIGHT ([id number]) [facility] ([facility]) [address] [place] [address] 49380 Sodium [Moles/Vol] 137 mmol/L Normal 136-145 [facility] Comment on above: Performed By: #### 5 0190-8 #### OMERO KNIGHT ([id number]) [facility] ([facility]) [address] [place] [address] Urea nitrogen [Mass/Vol] 14 mg/dL Normal 6-23 [facility] Comment on above: Performed By: #### 5 0190-8 #### JAMIL EUGENE ([id number]) [facility] ([facility]) [address] [place] [address] XR Chest Single viewon 11-16 [facility] [place] Work Phone: [phone] XR Chest Single viewOrdered By: Pastor Barrientos on 11-17-2023 [place] Work Phone: [phone] Bacteria identified Cx Nom ( Unsp spec)on 11-16-2023 Microscopic observation Gram stain Nom (Unsp spec) No polymorphonuclear leukocytes seen [place] Work Phone: [phone] Microscopic observation Gram stain Nom (Unsp spec) No organisms seen [place] Work Phone: [phone] [place] Work Phone: [phone] Microscopic observation Gram stain Nom (Unsp spec) No polymorphonuclear leukocytes seen [place] Work Phone: [phone] Microscopic observation Gram stain Nom (Unsp spec) No organisms seen [place] Work Phone: [phone] [place] Work Phone: [phone] Bedside PICC Imagingon 11-15 IMAGING CBC panel Auto (Bld)on 11-15 Erythrocyte distribution width (RBC) [Ratio] 16.5 % High 11.5 - 14.5 % [place] Hematocrit (Bld) [Volume fraction] 29.4 % Low 36.0 - 46.0 % [place] Hemoglobin (Bld) [Mass/Vol] 9.1 g/dL Low 12.0 - 16.0 g/dL [place] Interpretation and review of laboratory results Abnormal [place] MCH (RBC) [Entitic mass] 27.0 pg 26.0 - 34.0 pg [place] MCHC (RBC) [Mass/Vol] 31.0 g/dL Low 32.0 - 36.0 g/dL [place] MCV (RBC) [Entitic vol] 87 fL 80 - 100 fL [place] Nucleated RBC/100 WBC (Bld) [Ratio] 0.0 % [place] Platelets (Bld) [#/Vol] 192 10*3/uL [place] RBC (Bld) [#/Vol] 3.37 10*6/uL Low [facility] WBC (Bld) [#/Vol] 9.6 10*3/uL [facility] Erythrocyte distribution width (RBC) [Ratio] 16.5 % High 11.5-14.5 [facility] Comment on above: Performed By: #### 2 276-4 #### OMERO KNIGHT ([id number]) [facility] ([facility]) [address] [place] [address] Hematocrit (Bld) [Volume fraction] 29.4 % Low 36.0-46.0 [facility] Comment on above: Performed By: #### 2 276-4 #### OMERO KNIGHT ([id number]) [facility] ([facility]) [address] [place] [address] 60716 Hemoglobin (Bld) [Mass/Vol] 9.1 g/dL Low 12.0-16.0 [facility] Comment on above: Performed By: #### 2 276-4 #### OMERO KNIGHT ([id number]) [facility] ([facility]) [address] [place] [address] 26555 MCH (RBC) [Entitic mass] 27.0 pg Normal 26.0-34.0 [facility] Comment on above: Performed By: #### 2 276-4 #### OMERO KNIGHT ([id number]) [facility] ([facility]) [address] [place] [address] 73309 MCHC (RBC) [Mass/Vol] 31.0 g/dL Low 32.0-36.0 [facility] Comment on above: Performed By: #### 2 276-4 #### OMERO KNIGHT (55450) [facility] ([facility]) [address] [place] [address] MCV (RBC) [Entitic vol] 87 fL Normal 80-100 [facility] Comment on above: Performed By: #### 2 276-4 #### OMERO KNIGHT ([id number]) [facility] ([facility]) [address] [place] [address] 46708 Nucleated RBC/100 WBC (Bld) [Ratio] 0.0 /100 WBCs Normal 0.0-0.0 [facility] Comment on above: Performed By: #### 2 276-4 #### OMERO KNIGHT ([id number]) [facility] ([facility]) [address] [place] [address] 64215 Platelets (Bld) [#/Vol] 192 x10*3/uL Normal 150-450 [facility] Comment on above: Performed By: #### 2 276-4 #### OMERO KNIGHT ([id number]) [facility] ([facility]) [address] [place] [address] [phone] RBC (Bld) [#/Vol] 3.37 x10*6/uL Low 4.00-5.20 [facility] Comment on above: Performed By: #### 2 276-4 #### OMERO KNIGHT ([id number]) [facility] ([facility]) [address] [place] [address] 80524 WBC (Bld) [#/Vol] 9.6 x10*3/uL Normal 4.4-11.3 [facility] Comment on above: Performed By: #### 2 276-4 #### OMERO KNIGHT ([id number]) [facility] ([facility]) [address] [place] [address] [id number] Glucose Test strip manual (B ld) [Mass/Vol]on 11-16-2023 Glucose [Mass/Vol] 164 mg/dL High 74 - 99 mg/dL [place] Interpretation and review of laboratory results Abnormal [facility] Glucose [Mass/Vol] 164 mg/dL High 74-99 [facility] Comment on above: Performed By: #### 2 276-4 #### OMERO KNIGHT ([id number]) [facility] ([facility]) [address] [place] [address] Glucose [Mass/Vol] 168 mg/dL High 74 - 99 mg/dL [place] Interpretation and review of laboratory results Abnormal [facility] Glucose [Mass/Vol] 168 mg/dL High 74-99 [facility] Comment on above: Performed By: #### 2 276-4 #### OMERO KNIGHT ([id number]) [facility] [facility] [address] [place] [address] 37731 Glucose [Mass/Vol] 165 mg/dL High 74 - 99 mg/dL [place] Interpretation and review of laboratory results Abnormal [facility] Glucose [Mass/Vol] 165 mg/dL High 74-99 [facility] Comment on above: Performed By: #### 2 276-4 #### OMERO KNIGHT ([id number]) [facility] ([facility]) [address] [place] [address] 34381 Glucose [Mass/Vol] 125 mg/dL High 74 - 99 mg/dL [place] Interpretation and review of laboratory results Abnormal [facility] Glucose [Mass/Vol] 125 mg/dL High 74-99 [facility] Comment on above: Performed By: #### 2 276-4 #### OMERO KNIGHT ([id number]) [facility] ([facility]) [address] [place] [address] 38818 Magnesiumon 11-16-2023 Magnesium [Mass/Vol] 1.76 mg/dL 1.60 - 2.40 mg/dL [place] Magnesium [Mass/Vol] 1.76 mg/dL Normal 1.60-2.40 [facility] Comment on above: Performed By: #### 2 276-4 #### OMERO KNIGHT (40558) [facility] ([facility]) [address] [place] [address] 00239 Magnesium [Mass/Vol]on 11-15 Interpretation and review of laboratory results Normal [place] No Panel Informationon 11-15 [place] PICC >5 YR BEDSIDE IMAGINGon 11-16-2023 PICC >5 YR BEDSIDE IMAGING These images are not reportable by radiology and will not be interpreted by Radiologists. Normal [facility] Renal function 2000 panelon 11-16-2023 Albumin BCP dye [Mass/Vol] 2.7 g/dL Low 3.4 - 5.0 g/dL [place] Anion gap [Moles/Vol] 12 mmol/L 10 - 2 0 mmol/L [place] Calcium [Mass/Vol] 8.4 mg/dL Low 8.6 - 10. 6 mg/dL [place] Chloride [Moles/Vol] 97 mmol/L Low 98 - 10 7 mmol/L [place] CO2 [Moles/Vol] 31 mmol/L 21 - 32 mmol/L [place] Creatinine [Mass/Vol] 0.77 mg/dL 0.50 - 1.05 mg/dL [place] GFR/1.73 sq M.predicted among non-blacks MDRD (S/P/Bld) [Vol rate/Area] 81 mL/min/{1.73_m2} - PINF [place] Glucose [Mass/Vol] 141 mg/dL High 74 - 99 mg/dL [place] Interpretation and review of laboratory results Abnormal [place] Phosphate [Mass/Vol] 2.0 mg/dL Low 2.5 - 4 .9 mg/dL [place] Potassium [Moles/Vol] 3.3 mmol/L Low 3.5 - 5.3 mmol/L [place] Sodium [Moles/Vol] 137 mmol/L 136 - 145 mmol/L [place] Urea nitrogen [Mass/Vol] 17 mg/dL 6 - 23 mg/dL [place] Albumin BCP dye [Mass/Vol] 2.7 g/dL Low 3.4-5.0 [facility] Comment on above: Performed By: #### 2 276-4 #### JAMIL EUGENE ([id number]) [facility] ([facility]) [address] [place] [address] Anion gap [Moles/Vol] 12 mmol/L Normal 10-20 [facility] Comment on above: Performed By: #### 2 284-4 #### OMERO KNIGHT (70019) [facility] ([facility]) [address] [place] [address] 48089 Calcium [Mass/Vol] 8.4 mg/dL Low 8.6-10.6 [facility] Comment on above: Performed By: #### 2 276-4 #### OMERO KNIGHT (82843) [facility] ([facility]) [address] [place] [address] 17787 Chloride [Moles/Vol] 97 mmol/L Low 98-107 [facility] Comment on above: Performed By: #### 2 276-4 #### OMERO KNIGHT (50242) [facility] ([facility]) [address] [place] [address] 32316 CO2 [Moles/Vol] 31 mmol/L Normal 21-32 [facility] Comment on above: Performed By: #### 2 276-4 #### OMERO KNIGHT (60498) [facility] ([facility]) [address] [place] [address] 46516 Creatinine [Mass/Vol] 0.77 mg/dL Normal 0.50-1.05 [facility] Comment on above: Performed By: #### 2 276-4 #### OMERO KNIGHT ([id number]) [facility] ([facility]) [address] [place] [address] 62882 Glomerular filtration rate/1.73 sq M.predicted 81 mL/min/1.73m*2 Normal >60 [facility] Comment on above: Result Comment: Calc ulations of estimated GFR are performed using the 2020 CKD-EPI Study Refit equation without the race variable for the IDMS-Traceable creatinine methods. https://jasn.asnjournals.org/content//ASN.36023 57975 Performed By: #### 2 276-4 #### OMERO KNIGHT ([id number]) [facility] ([facility]) [address] [place] [address] 53105 Glucose [Mass/Vol] 141 mg/dL High 74-99 [facility] Comment on above: Performed By: #### 2 276-4 #### OMERO KNIGHT (80333) [facility] ([facility]) [address] [place] [address] 35861 Phosphate [Mass/Vol] 2.0 mg/dL Low 2.5-4.9 [facility] Comment on above: Result Comment: The performance characteristics of phosphorus testing in heparinized plasma have been validated by the individual laboratory site where testing is performed. Testing on heparinized plasma is not approved by the FDA; however, such approval is not necessary. Performed By: #### 2 276-4 #### OMERO KNIGHT (92402) [facility] ([facility]) [address] [place] [address] 83533 Potassium [Moles/Vol] 3.3 mmol/L Low 3.5-5.3 [facility] Comment on above: Performed By: #### 2 276-4 #### OMERO KNIGHT ([id number]) [facility] ([facility]) [address] [place] [address] 12022 Sodium [Moles/Vol] 137 mmol/L Normal 136-145 [facility] Comment on above: Performed By: #### 2 276-4 #### OMERO KNIGHT (58452) [facility] ([facility]) [address] [place] [address] 82641 Urea nitrogen [Mass/Vol] 17 mg/dL Normal 6-23 [facility] Comment on above: Performed By: #### 2 276-4 #### OMERO KNIGHT ([id number]) [facility] ([facility]) [address] [place] [address] 52599 Tissue/Wound Culture/Smearon 11-16-2023 Bacteria identified Cx Nom (Unsp spec) No growth aerobically and anaerobically [place] Work Phone: Bacteria identified Cx Nom (Unsp spec) No growth aerobically and anaerobically [place] Work Phone: XR CHEST 1 VIEWon 11-16-2023 XR CHEST 1 VIEW Interpreted By: Pastor Chowdhury, and Mcintire Tiffanie STUDY: XR CHEST 1 VIEW; 11/16/2023 5:05 pm INDICATION: Signs/Symptoms:PICC PLACEMENT. COMPARISON: 11/13/2023 chest radiograph ACCESSION NUMBER(S): [id number] ORDERING CLINICIAN: RU SANTOS FINDINGS: AP radiograph of the chest was [...] as stated. This study was interpreted at [facility], [place], [place]. MACRO: None Signed by: Pastor Barrientos 11/17/2023 6:46 AM Dictation workstation: [id number] Normal [facility] XR Chest Single viewon 11-15 Radiology Study observation (narrative) [place] Work Phone: Bacteria identified Cx Nom ( Unsp spec)Ordered By: Betty Hutchins on 11-15-2023 Microscopic observation Gram stain Nom (Unsp spec) (1+) Rare Polymorphonuclear leukocytes [place] Microscopic observation Gram stain Nom (Unsp spec) No organisms seen [facility] CBC panel Auto (Bld)on 11-14 Erythrocyte distribution width (RBC) [Ratio] 16.2 % High 11.5 - 14.5 % [place] Hematocrit (Bld) [Volume fraction] 31.4 % Low 36.0 - 46.0 % [place] Hemoglobin (Bld) [Mass/Vol] 9.8 g/dL Low 12.0 - 16.0 g/dL [place] Interpretation and review of laboratory results Abnormal [place] MCH (RBC) [Entitic mass] 26.8 pg 26.0 - 34.0 pg [place] MCHC (RBC) [Mass/Vol] 31.2 g/dL Low 32.0 - 36.0 g/dL [place] MCV (RBC) [Entitic vol] 86 fL 80 - 100 fL [place] Nucleated RBC/100 WBC (Bld) [Ratio] 0.0 % [place] Platelets (Bld) [#/Vol] 234 10*3/uL [place] RBC (Bld) [#/Vol] 3.65 10*6/uL Low [facility] WBC (Bld) [#/Vol] 10.9 10*3/uL [facility] Erythrocyte distribution width (RBC) [Ratio] 16.2 % High 11.5-14.5 [facility] Comment on above: Performed By: #### 2 4323-8 #### OMERO KNIGHT ([id number]) [facility] ([facility]) [address] [place] [address] 24827 Hematocrit (Bld) [Volume fraction] 31.4 % Low 36.0-46.0 [facility] Comment on above: Performed By: #### 2 4323-8 #### OMERO KNIGHT (27206) [facility] ([facility]) [address] [place] [address] 90796 Hemoglobin (Bld) [Mass/Vol] 9.8 g/dL Low 12.0-16.0 [facility] Comment on above: Performed By: #### 2 4323-8 #### OMERO KNIGHT ([id number]) [facility] ([facility]) [address] [place] [address] 59566 MCH (RBC) [Entitic mass] 26.8 pg Normal 26.0-34.0 [facility] Comment on above: Performed By: #### 2 4323-8 #### OMERO KNIGHT (40796) [facility] ([facility]) [address] [place] [address] 84927 MCHC (RBC) [Mass/Vol] 31.2 g/dL Low 32.0-36.0 [facility] Comment on above: Performed By: #### 2 4323-8 #### OMERO KNIGHT (53544) [facility] ([facility]) [address] [place] [address] 71193 MCV (RBC) [Entitic vol] 86 fL Normal 80-100 [facility] Comment on above: Performed By: #### 2 4322-8 #### OMERO KNIGHT (50366) [facility] ([facility]) [address] [place] [address] 07109 Nucleated RBC/100 WBC (Bld) [Ratio] 0.0 /100 WBCs Normal 0.0-0.0 [facility] Comment on above: Performed By: #### 2 432-8 #### OMERO KNIGHT (53663) [facility] ([facility]) [address] [place] [address] 81738 Platelets (Bld) [#/Vol] 234 x10*3/uL Normal 150-450 [facility] Comment on above: Performed By: #### 2 4322-8 #### OMERO KNIGHT (58508) [facility] ([facility]) [address] [place] [address] 06922 RBC (Bld) [#/Vol] 3.65 x10*6/uL Low 4.00-5.20 [facility] Comment on above: Performed By: #### 2 4323-8 #### OMERO KNIGHT (93381) [facility] ([facility]) [address] [place] [address] 62138 WBC (Bld) [#/Vol] 10.9 x10*3/uL Normal 4.4-11.3 [facility] Comment on above: Performed By: #### 2 4323-8 #### OMERO KNIGHT (51174) [facility] ([facility]) [address] [place] [address] 29017 ECG 12 LeadOrdered By: Fabio Bee on 11-15-2023 Atrial Rate 73 BPM [place] Work Phone: [phone] P [place] -24 degrees [place] Work Phone: [phone] P Offset 148 ms [place] Work Phone: [phone] P Onset 107 ms [place] Work Phone: [phone] DC Interval 196 ms [place] Work Phone: [phone] Q Onset 205 ms [place] Work Phone: [phone] QRS Count 12 beats [place] Work Phone: [phone] QRS Duration 106 ms [place] Work Phone: [phone] QT Interval 384 ms [place] Work Phone: [phone] QTC Calculation(Bazett) 423 [facility] Work Phone: [phone] QTC Fredericia 410 ms [place] Work Phone: [phone] R [place] -46 degrees [place] Work Phone: [phone] T [place] -41 degrees [place] Work Phone: [phone] T Offset 397 ms [place] Work Phone: [phone] Ventricular Rate 73 BPM [facility] Work Phone: [phone] [place] Work Phone: [phone] ECG 12 Leadon 11-15-2023 [facility] Work Phone: Glucose Test strip manual (B ld) [Mass/Vol]on 11-15-2023 Glucose [Mass/Vol] 156 mg/dL High 74 - 99 mg/dL [place] Interpretation and review of laboratory results Abnormal [facility] Glucose [Mass/Vol] 156 mg/dL High 74-99 [facility] Comment on above: Performed By: #### 2 276-4 #### JAMIL EUGENE (80653) [facility] ([facility]) [address] [place] [address] Glucose [Mass/Vol] 176 mg/dL High 74 - 99 mg/dL [place] Interpretation and review of laboratory results Abnormal [facility] Glucose [Mass/Vol] 176 mg/dL High 74-99 [facility] Comment on above: Performed By: #### 2 4323-8 #### OMERO KNIGHT (47376) [facility] ([facility]) [address] [place] [address] 07380 Glucose [Mass/Vol] 166 mg/dL High 74 - 99 mg/dL [place] Interpretation and review of laboratory results Abnormal [facility] Glucose [Mass/Vol] 166 mg/dL High 74-99 [facility] Comment on above: Performed By: #### 2 4323-8 #### OMERO KNIGHT ([id number]) [facility] ([facility]) [address] [place] [address] 75468 Glucose [Mass/Vol] 138 mg/dL High 74 - 99 mg/dL [place] Interpretation and review of laboratory results Abnormal [facility] Glucose [Mass/Vol] 138 mg/dL High 74-99 [facility] Comment on above: Performed By: #### 2 4323-8 #### OMERO KNIGHT ([id number]) [facility] ([facility]) [address] [place] [address] 99542 Magnesiumon 11-15-2023 Magnesium [Mass/Vol] 1.36 mg/dL Low 1.60 - 2.40 mg/dL [place] Magnesium [Mass/Vol] 1.36 mg/dL Low 1.60-2.40 [facility] Comment on above: Performed By: #### 2 4323-8 #### OMERO KNIGHT (09258) [facility] ([facility]) [address] [place] [address] 64977 No Panel Informationon 11-14 Blood Expiration Date 12/11/2023 11:59:00 PM EDT [place] [facility] PRODUCT CODE [id number] [place] Unit ABO O [place] [facility] RH Positive [place] UNIT VOLUME 350 [place] XM INTEP COMP [place] Interpretation and review of laboratory results Abnormal [facility] Prepare RBC: 4 Unitson 11-14 Blood Expiration Date 12/12/2023 11:59:00 PM EDT [place] PRODUCT CODE [id number] [place] Unit Number [id number] [facility] Unit Number [id number] [facility] Unit Number [id number] [facility] Unit Number [id number] [facility] UNIT VOLUME 288 [facility] Renal function 2000 panelon 11-15-2023 Albumin BCP dye [Mass/Vol] 2.6 g/dL Low 3.4 - 5.0 g/dL [place] Anion gap [Moles/Vol] 14 mmol/L 10 - 2 0 mmol/L [place] Calcium [Mass/Vol] 8.1 mg/dL Low 8.6 - 10. 6 mg/dL [place] Chloride [Moles/Vol] 96 mmol/L Low 98 - 10 7 mmol/L [place] CO2 [Moles/Vol] 29 mmol/L 21 - 32 mmol/L [place] Creatinine [Mass/Vol] 0.95 mg/dL 0.50 - 1.05 mg/dL [place] GFR/1.73 sq M.predicted among non-blacks MDRD (S/P/Bld) [Vol rate/Area] 63 mL/min/{1.73_m2} - PINF [place] Glucose [Mass/Vol] 183 mg/dL High 74 - 99 mg/dL [place] Phosphate [Mass/Vol] 3.1 mg/dL 2.5 - 4 .9 mg/dL [place] Potassium [Moles/Vol] 3.8 mmol/L 3.5 - 5.3 mmol/L [place] Sodium [Moles/Vol] 135 mmol/L Low 136 - 145 mmol/L [place] Urea nitrogen [Mass/Vol] 20 mg/dL 6 - 23 mg/dL [place] Albumin BCP dye [Mass/Vol] 2.6 g/dL Low 3.4-5.0 [facility] Comment on above: Performed By: #### 2 4323-8 #### OMERO KNIGHT ([id number]) [facility] ([facility]) [address] [place] [address] 31060 Anion gap [Moles/Vol] 14 mmol/L Normal 10-20 [facility] Comment on above: Performed By: #### 2 4322-8 #### OMERO KNIGHT (22331) [facility] ([facility]) [address] [place] [address] 20201 Calcium [Mass/Vol] 8.1 mg/dL Low 8.6-10.6 [facility] Comment on above: Performed By: #### 2 4322-8 #### OMERO KNIGHT (76563) [facility] ([facility]) [address] [place] [address] 40031 Chloride [Moles/Vol] 96 mmol/L Low 98-107 [facility] Comment on above: Performed By: #### 2 4322-8 #### OMERO KNIGHT ([id number]) [facility] ([facility]) [address] [place] [address] 76476 CO2 [Moles/Vol] 29 mmol/L Normal 21-32 [facility] Comment on above: Performed By: #### 2 4322-8 #### OMERO KNIGHT ([id number]) [facility] ([facility]) [address] [place] [address] 45524 Creatinine [Mass/Vol] 0.95 mg/dL Normal 0.50-1.05 [facility] Comment on above: Performed By: #### 2 432-8 #### OMERO KNIGHT (85224) [facility] ([facility]) [address] [place] [address] 91091 Glomerular filtration rate/1.73 sq M.predicted 63 mL/min/1.73m*2 Normal >60 [facility] Comment on above: Result Comment: Calc ulations of estimated GFR are performed using the 2020 CKD-EPI Study Refit equation without the race variable for the IDMS-Traceable creatinine methods. https://jasn.asnjournals.org/content//ASN.64586 67397 Performed By: #### 2 4323-8 #### OMERO KNIGHT (14497) [facility] ([facility]) [address] [place] [address] 92271 Glucose [Mass/Vol] 183 mg/dL High 74-99 [facility] Comment on above: Performed By: #### 2 4323-8 #### OMERO KNIGHT (74631) [facility] ([facility]) [address] [place] [address] 26528 Phosphate [Mass/Vol] 3.1 mg/dL Normal 2.5-4.9 [facility] Comment on above: Result Comment: The performance characteristics of phosphorus testing in heparinized plasma have been validated by the individual laboratory site where testing is performed. Testing on heparinized plasma is not approved by the FDA; however, such approval is not necessary. Performed By: #### 2 4323-8 #### OMERO KNIGHT (61712) [facility] ([facility]) [address] [place] [address] 52548 Potassium [Moles/Vol] 3.8 mmol/L Normal 3.5-5.3 [facility] Comment on above: Performed By: #### 2 4323-8 #### OMERO KNIGHT (90224) [facility] ([facility]) [address] [place] [address] 28547 Sodium [Moles/Vol] 135 mmol/L Low 136-145 [facility] Comment on above: Performed By: #### 2 4323-8 #### OMERO KNIGHT (69492) [facility] ([facility]) [address] [place] [address] 34765 Urea nitrogen [Mass/Vol] 20 mg/dL Normal 6-23 [facility] Comment on above: Performed By: #### 2 4323-8 #### OMERO KNIGHT (86945) [facility] ([facility]) [address] [place] [address] Tissue/Wound Culture/SmearOr dered By: Betty Hutchins on 11-15-2023 Bacteria identified Cx Nom (Unsp spec) No growth aerobically and anaerobically [place] Bacteria identifiedon 2023 Bacteria identified Cx Nom (Unsp spec) Test: Tissue/Wound Culture/Smear Specimen Source: [facility] Specimen Type: Swab Specimen Date: 11/14/20231754 Result Date: 11/16/2023 1431 Result Status: Final result Resulting Lab: [facility] [address] [place] [address] CULTURE No growth aerobically and anaerobically STAIN No polymorphonuclear leukocytes seen No organisms seen Normal [facility] Comment on above: Performed By: #### 2 4323-8 #### OMERO KNIGHT (72260) [facility] ([facility]) [address] [place] [address] Bacteria identified Cx Nom (Unsp spec) Test: Tissue/Wound Culture/Smear Specimen Source: [facility] Specimen Type: Swab Specimen Date: 11/14/20231732 Result Date: 11/16/2023 1200 Result Status: Final result Resulting Lab: [facility] [address] [place] [address] CULTURE No growth aerobically and anaerobically STAIN No polymorphonuclear leukocytes seen No organisms seen Normal [facility] Comment on above: Performed By: #### 2 4323-8 #### OMERO KNIGHT (58806) [facility] ([facility]) [address] [place] [address] CBC panel Auto (Bld)on 11-13 Erythrocyte distribution width (RBC) [Ratio] 15.9 % High 11.5 - 14.5 % [place] Hematocrit (Bld) [Volume fraction] 34.8 % Low 36.0 - 46.0 % [place] Hemoglobin (Bld) [Mass/Vol] 10.5 g/dL Low 12.0 - 16.0 g/dL [place] Interpretation and review of laboratory results Abnormal [place] MCH (RBC) [Entitic mass] 25.9 pg Low 26.0 - 34.0 pg [place] MCHC (RBC) [Mass/Vol] 30.2 g/dL Low 32.0 - 36.0 g/dL [place] MCV (RBC) [Entitic vol] 86 fL 80 - 100 fL [place] Nucleated RBC/100 WBC (Bld) [Ratio] 0.0 % [place] Platelets (Bld) [#/Vol] 190 10*3/uL [place] RBC (Bld) [#/Vol] 4.06 10*6/uL [facility] WBC (Bld) [#/Vol] 6.4 10*3/uL [facility] Erythrocyte distribution width (RBC) [Ratio] 15.9 % High 11.5-14.5 [facility] Comment on above: Performed By: #### 5 8410-2 #### OMERO KNIGHT (53706) [facility] ([facility]) [address] [place] [address] 93719 Hematocrit (Bld) [Volume fraction] 34.8 % Low 36.0-46.0 [facility] Comment on above: Performed By: #### 5 8410-2 #### OMERO KNIGHT (14192) [facility] ([facility]) [address] [place] [address] 82024 Hemoglobin (Bld) [Mass/Vol] 10.5 g/dL Low 12.0-16.0 [facility] Comment on above: Performed By: #### 5 8410-2 #### OMERO KNIGHT (99528) [facility] ([facility]) [address] [place] [address] 54478 MCH (RBC) [Entitic mass] 25.9 pg Low 26.0-34.0 [facility] Comment on above: Performed By: #### 5 8410-2 #### OMERO KNIGHT (87943) [facility] ([facility]) [address] [place] [address] 69258 MCHC (RBC) [Mass/Vol] 30.2 g/dL Low 32.0-36.0 [facility] Comment on above: Performed By: #### 5 8410-2 #### OMERO KNIGHT (24111) [facility] ([facility]) [address] [place] [address] MCV (RBC) [Entitic vol] 86 fL Normal 80-100 [facility] Comment on above: Performed By: #### 5 8410-2 #### OMERO KNIGHT (56766) [facility] ([facility]) [address] [place] [address] Nucleated RBC/100 WBC (Bld) [Ratio] 0.0 /100 WBCs Normal 0.0-0.0 [facility] Comment on above: Performed By: #### 5 8410-2 #### OMERO KNIGHT ([id number]) [facility] ([facility]) [address] [place] [address] 60925 Platelets (Bld) [#/Vol] 190 x10*3/uL Normal 150-450 [facility] Comment on above: Performed By: #### 5 8410-2 #### OMERO KNIGHT ([id number]) [facility] ([facility]) [address] [place] [address] 86193 RBC (Bld) [#/Vol] 4.06 x10*6/uL Normal 4.00-5.20 [facility] Comment on above: Performed By: #### 5 8410-2 #### OMERO KNIGHT (09460) [facility] ([facility]) [address] [place] [address] 69386 WBC (Bld) [#/Vol] 6.4 x10*3/uL Normal 4.4-11.3 [facility] Comment on above: Performed By: #### 5 8410-2 #### OMERO KNIGHT ([id number]) [facility] ([facility]) [address] [place] [address] CT Guidance for deep biopsy of Boneon 11-14-2023 [facility] [place] Work Phone: CT Guidance for deep biopsy of BoneOrdered By: Caron Donaldson on 11-14-2023 [place] Work Phone: Extra Urine Gonzalez Tubeon - Extra Tube Hold for add-ons. [facility] FL FLUORO IMAGES NO CHARGEon 11-14-2023 [place] FLUORO IMAGES NO CHARGE These images are not reportable by radiology and will not be interpreted by Radiologists. Normal [facility] Gas and Carbon monoxide and Electrolytes panel (BldA)on 11-14-2023 Anion gap 4 (BldA) [Moles/Vol] 8 Low [place] Base excess Calc (Bld) [Moles/Vol] 5.0 mmol/L High -2.0 - 3.0 mmol/L [place] Calcium.ionized (BldA) [Moles/Vol] 1.18 mmol/L 1.10 - 1.33 mmol/L [place] Chloride (BldA) [Moles/Vol] 101 mmol/L 98 - 107 mmol/L [place] CO2 (Bld) [Partial pressure] 40 mm[Hg] [place] Glucose [Mass/Vol] 137 mg/dL High 74 - 99 mg/dL [place] HCO3 (Bld) [Moles/Vol] 29.1 mmol/L High 22.0 - 26.0 mmol/L [place] Hematocrit Est (Bld) [Volume fraction] 30.0 % Low 36.0 - 46.0 % [place] Hemoglobin (Bld) [Mass/Vol] 10.0 g/dL Low 12.0 - 16.0 g/dL [place] Inhaled oxygen concentration 50 % [place] Interpretation and review of laboratory results Abnormal [place] Lactate (BldA) [Moles/Vol] 1.5 mmol/L 0.4 - 2.0 mmol/L [place] Oxygen (Bld) [Partial pressure] 189 mm[Hg] High [place] Oxyhemoglobin (BldA) [Mass fraction] 97.7 % 94.0 - 98.0 % [place] pH (Bld) 7.47 [pH] High 7.38 - 7.42 pH [place] Potassium (BldA) [Moles/Vol] 3.7 mmol/L 3.5 - 5.3 mmol/L [place] Sodium (BldA) [Moles/Vol] 134 mmol/L Low 136 - 145 mmol/L [facility] Anion gap 4 (BldA) [Moles/Vol] 8 mmo/L Low 10-25 [facility] Comment on above: Performed By: #### 5 8410-2 #### OMERO KNIGHT ([id number]) [facility] ([facility]) [address] [place] [address] Base excess Calc (Bld) [Moles/Vol] 5.0 mmol/L High -2.0-3.0 [facility] Comment on above: Performed By: #### 5 8410-2 #### OMERO KNIGHT ([id number]) [facility] ([facility]) [address] [place] [address] 05331 Calcium.ionized (BldA) [Moles/Vol] 1.18 mmol/L Normal 1.10-1.33 [facility] Comment on above: Performed By: #### 5 8410-2 #### OMERO KNIGHT ([id number]) [facility] ([facility]) [address] [place] [address] 18170 Chloride (BldA) [Moles/Vol] 101 mmol/L Normal 98-107 [facility] Comment on above: Performed By: #### 5 8410-2 #### OMERO KNIGHT ([id number]) [facility] ([facility]) [address] [place] [address] 96604 CO2 (Bld) [Partial pressure] 40 mm Hg Normal 38-42 [facility] Comment on above: Performed By: #### 5 8410-2 #### OMERO KNIGHT ([id number]) [facility] ([facility]) [address] [place] [address] 14069 Glucose [Mass/Vol] 137 mg/dL High 74-99 [facility] Comment on above: Performed By: #### 5 8410-2 #### OMERO KNIGHT ([id number]) [facility] ([facility]) [address] [place] [address] 23620 HCO3 (Bld) [Moles/Vol] 29.1 mmol/L High 22.0-26.0 [facility] Comment on above: Performed By: #### 5 8410-2 #### OMERO KNIGHT ([id number]) [facility] ([facility]) [address] [place] [address] 67722 Hematocrit Est (Bld) [Volume fraction] 30.0 % Low 36.0-46.0 [facility] Comment on above: Performed By: #### 5 8410-2 #### OMERO KNIGHT ([id number]) [facility] ([facility]) [address] [place] [address] 87415 Hemoglobin (Bld) [Mass/Vol] 10.0 g/dL Low 12.0-16.0 [facility] Comment on above: Performed By: #### 5 8410-2 #### OMERO KNIGHT ([id number]) [facility] ([facility]) [address] [place] [address] 86773 Inhaled oxygen concentration 50 % Normal [facility] Comment on above: Performed By: #### 5 8410-2 #### OMERO KNIGHT ([id number]) [facility] ([facility]) [address] [place] [address] 77208 Lactate (BldA) [Moles/Vol] 1.5 mmol/L Normal 0.4-2.0 [facility] Comment on above: Performed By: #### 5 8410-2 #### OMERO KNIGHT ([id number]) [facility] ([facility]) [address] [place] [address] 17210 Oxygen (Bld) [Partial pressure] 189 mm Hg High 85-95 [facility] Comment on above: Performed By: #### 5 8410-2 #### OMERO KNIGHT ([id number]) [facility] ([facility]) [address] [place] [address] Oxyhemoglobin (BldA) [Mass fraction] 97.7 % Normal 94.0-98.0 [facility] Comment on above: Performed By: #### 5 8410-2 #### OMERO KNIGHT ([id number]) [facility] ([facility]) [address] [place] [address] pH (Bld) 7.47 [pH] High 7.38-7.42 [facility] Comment on above: Performed By: #### 5 8410-2 #### OMERO KNIGHT ([id number]) [facility] ([facility]) [address] [place] [address] Potassium (BldA) [Moles/Vol] 3.7 mmol/L Normal 3.5-5.3 [facility] Comment on above: Performed By: #### 5 8410-2 #### OMERO KNIGHT ([id number]) [facility] ([facility]) [address] [place] [address] Sodium (BldA) [Moles/Vol] 134 mmol/L Low 136-145 [facility] Comment on above: Performed By: #### 5 8410-2 #### OMERO KNIGHT ([id number]) [facility] ([facility]) [address] [place] [address] Anion gap 4 (BldA) [Moles/Vol] 5 Low [place] Base excess Calc (Bld) [Moles/Vol] 6.2 mmol/L High -2.0 - 3.0 mmol/L [place] Calcium.ionized (BldA) [Moles/Vol] 1.17 mmol/L 1.10 - 1.33 mmol/L [place] Chloride (BldA) [Moles/Vol] 101 mmol/L 98 - 107 mmol/L [place] CO2 (Bld) [Partial pressure] 36 mm[Hg] Low [place] Glucose [Mass/Vol] 120 mg/dL High 74 - 99 mg/dL [place] HCO3 (Bld) [Moles/Vol] 29.4 mmol/L High 22.0 - 26.0 mmol/L [place] Hematocrit Est (Bld) [Volume fraction] 31.0 % Low 36.0 - 46.0 % [place] Hemoglobin (Bld) [Mass/Vol] 10.3 g/dL Low 12.0 - 16.0 g/dL [place] Inhaled oxygen concentration 50 % [place] Interpretation and review of laboratory results Abnormal [place] Lactate (BldA) [Moles/Vol] 1.1 mmol/L 0.4 - 2.0 mmol/L [place] Oxygen (Bld) [Partial pressure] 191 mm[Hg] High [place] Oxyhemoglobin (BldA) [Mass fraction] 97.6 % 94.0 - 98.0 % [place] pH (Bld) 7.52 [pH] High 7.38 - 7.42 pH [place] Potassium (BldA) [Moles/Vol] 2.8 mmol/L Critically low 3.5 - 5.3 mmol/L [place] Sodium (BldA) [Moles/Vol] 133 mmol/L Low 136 - 145 mmol/L [facility] Anion gap 4 (BldA) [Moles/Vol] 5 mmo/L Low 10-25 [facility] Comment on above: Performed By: #### 5 8410-2 #### OMERO KNIGHT ([id number]) [facility] ([facility]) [address] [place] [address] Base excess Calc (Bld) [Moles/Vol] 6.2 mmol/L High -2.0-3.0 [facility] Comment on above: Performed By: #### 5 8410-2 #### OMERO KNIGHT ([id number]) [facility] ([facility]) [address] [place] [address] Calcium.ionized (BldA) [Moles/Vol] 1.17 mmol/L Normal 1.10-1.33 [facility] Comment on above: Performed By: #### 5 8410-2 #### OMERO KNIGHT ([id number]) [facility] ([facility]) [address] [place] [address] Chloride (BldA) [Moles/Vol] 101 mmol/L Normal 98-107 [facility] Comment on above: Performed By: #### 5 8410-2 #### OMERO KNIGHT ([id number]) [facility] ([facility]) [address] [place] [address] CO2 (Bld) [Partial pressure] 36 mm Hg Low 38-42 [facility] Comment on above: Performed By: #### 5 8410-2 #### OMERO KNIGHT ([id number]) [facility] ([facility]) [address] [place] [address] 07333 Glucose [Mass/Vol] 120 mg/dL High 74-99 [facility] Comment on above: Performed By: #### 5 8410-2 #### OMERO KNIGHT ([id number]) [facility] ([facility]) [address] [place] [address] 32736 HCO3 (Bld) [Moles/Vol] 29.4 mmol/L High 22.0-26.0 [facility] Comment on above: Performed By: #### 5 8410-2 #### OMERO KNIGHT (62974) [facility] ([facility]) [address] [place] [address] 59260 Hematocrit Est (Bld) [Volume fraction] 31.0 % Low 36.0-46.0 [facility] Comment on above: Performed By: #### 5 8410-2 #### OMERO KNIGHT ([id number]) [facility] ([facility]) [address] [place] [address] 14934 Hemoglobin (Bld) [Mass/Vol] 10.3 g/dL Low 12.0-16.0 [facility] Comment on above: Performed By: #### 5 8410-2 #### OMERO KNIGHT ([id number]) [facility] ([facility]) [address] [place] [address] 67220 Inhaled oxygen concentration 50 % Normal [facility] Comment on above: Performed By: #### 5 8410-2 #### OMERO KNIGHT ([id number]) [facility] ([facility]) [address] [place] [address] 00541 Lactate (BldA) [Moles/Vol] 1.1 mmol/L Normal 0.4-2.0 [facility] Comment on above: Performed By: #### 5 8410-2 #### OMERO KNIGHT ([id number]) [facility] ([facility]) [address] [place] [address] 35568 Oxygen (Bld) [Partial pressure] 191 mm Hg High 85-95 [facility] Comment on above: Performed By: #### 5 8410-2 #### OMERO KNIGHT ([id number]) [facility] ([facility]) [address] [place] [address] 68299 Oxyhemoglobin (BldA) [Mass fraction] 97.6 % Normal 94.0-98.0 [facility] Comment on above: Performed By: #### 5 8410-2 #### OMERO KNIGHT (95329) [facility] ([facility]) [address] [place] [address] 40546 pH (Bld) 7.52 [pH] High 7.38-7.42 [facility] Comment on above: Performed By: #### 5 8410-2 #### OMERO KNIGHT ([id number]) [facility] ([facility]) [address] [place] [address] 48818 Potassium (BldA) [Moles/Vol] 2.8 mmol/L Critically low 3.5-5.3 [facility] Comment on above: Performed By: #### 5 8410-2 #### OMERO KNIGHT ([id number]) [facility] ([facility]) [address] [place] [address] 41588 Sodium (BldA) [Moles/Vol] 133 mmol/L Low 136-145 [facility] Comment on above: Performed By: #### 5 8410-2 #### OMERO KNIGHT (35498) [facility] ([facility]) [address] [place] [address] 78197 Glucose Test strip manual (B ld) [Mass/Vol]on 11-14-2023 Glucose [Mass/Vol] 181 mg/dL High 74 - 99 mg/dL [place] Interpretation and review of laboratory results Abnormal [facility] Glucose [Mass/Vol] 181 mg/dL High 74-99 [facility] Comment on above: Performed By: #### 2 4323-8 #### OMERO KNIGHT ([id number]) [facility] ([facility]) [address] [place] [address] 66851 Glucose [Mass/Vol] 112 mg/dL High 74 - 99 mg/dL [place] Interpretation and review of laboratory results Abnormal [facility] Glucose [Mass/Vol] 112 mg/dL High 74-99 [facility] Comment on above: Performed By: #### 5 8410-2 #### OMERO KNIGHT ([id number]) [facility] ([facility]) [address] [place] [address] 67291 Glucose [Mass/Vol] 115 mg/dL High 74 - 99 mg/dL [place] Interpretation and review of laboratory results Abnormal [facility] Glucose [Mass/Vol] 115 mg/dL High 74-99 [facility] Comment on above: Performed By: #### 5 8410-2 #### OMERO KNIGHT ([id number]) [facility] ([facility]) [address] [place] [address] 23869 PT and aPTT panel Coag (PPP) on 11-14-2023 aPTT Coag (PPP) [Time] 34 s [facility] INR Coag (PPP) [Relative time] 1.1 {INR} 0.9 - 1.1 [place] Interpretation and review of laboratory results Normal [place] PT Coag (PPP) [Time] 12.7 s [facility] aPTT Coag (PPP) [Time] 34 s Normal 27-38 [facility] Comment on above: Order Comment: The A PTT is no longer used for monitoring Unfractionated Heparin Therapy. For monitoring Heparin Therapy, use the Heparin Assay. Performed By: #### 5 8410-2 #### OMERO KNIGHT ([id number]) [facility] ([facility]) [facility] [place] [address] INR Coag (PPP) [Relative time] 1.1 Normal 0.9-1.1 [facility] Comment on above: Order Comment: The A PTT is no longer used for monitoring Unfractionated Heparin Therapy. For monitoring Heparin Therapy, use the Heparin Assay. Performed By: #### 5 8410-2 #### OMERO KNIGHT (90336) [facility] ([facility]) [facility] [place] [address] PT Coag (PPP) [Time] 12.7 s Normal 9.8-12.8 [facility] Comment on above: Order Comment: The A PTT is no longer used for monitoring Unfractionated Heparin Therapy. For monitoring Heparin Therapy, use the Heparin Assay. Performed By: #### 5 8410-2 #### OMERO KNIGHT (48500) [facility] ([facility]) [address] [place] [address] 43519 Renal function 2000 panelon 11-14-2023 Albumin BCP dye [Mass/Vol] 2.7 g/dL Low 3.4 - 5.0 g/dL [place] Anion gap [Moles/Vol] 10 mmol/L 10 - 2 0 mmol/L [place] Calcium [Mass/Vol] 8.9 mg/dL 8.6 - 10. 6 mg/dL [place] Chloride [Moles/Vol] 96 mmol/L Low 98 - 10 7 mmol/L [place] CO2 [Moles/Vol] 35 mmol/L High 21 - 32 mmol/L [place] Creatinine [Mass/Vol] 0.97 mg/dL 0.50 - 1.05 mg/dL [place] GFR/1.73 sq M.predicted among non-blacks MDRD (S/P/Bld) [Vol rate/Area] 61 mL/min/{1.73_m2} - PINF [place] Glucose [Mass/Vol] 110 mg/dL High 74 - 99 mg/dL [place] Interpretation and review of laboratory results Abnormal [place] Phosphate [Mass/Vol] 3.3 mg/dL 2.5 - 4 .9 mg/dL [place] Potassium [Moles/Vol] 3.4 mmol/L Low 3.5 - 5.3 mmol/L [place] Sodium [Moles/Vol] 138 mmol/L 136 - 145 mmol/L [place] Urea nitrogen [Mass/Vol] 16 mg/dL 6 - 23 mg/dL [facility] Albumin BCP dye [Mass/Vol] 2.7 g/dL Low 3.4-5.0 [facility] Comment on above: Performed By: #### 5 8410-2 #### OMERO KNIGHT ([id number]) [facility] ([facility]) [address] [place] [address] 02059 Anion gap [Moles/Vol] 10 mmol/L Normal 10-20 [facility] Comment on above: Performed By: #### 5 8410-2 #### OMERO KNIGHT ([id number]) [facility] ([facility]) [address] [place] [address] 43272 Calcium [Mass/Vol] 8.9 mg/dL Normal 8.6-10.6 [facility] Comment on above: Performed By: #### 5 8410-2 #### OMERO KNIGHT ([id number]) [facility] ([facility]) [address] [place] [address] 97145 Chloride [Moles/Vol] 96 mmol/L Low 98-107 [facility] Comment on above: Performed By: #### 5 8410-2 #### OMERO KNIGHT ([id number]) [facility] ([facility]) [address] [place] [address] 20987 CO2 [Moles/Vol] 35 mmol/L High 21-32 [facility] Comment on above: Performed By: #### 5 8410-2 #### OMERO KNIGHT ([id number]) [facility] ([facility]) [address] [place] [address] 67788 Creatinine [Mass/Vol] 0.97 mg/dL Normal 0.50-1.05 [facility] Comment on above: Performed By: #### 5 8410-2 #### OMERO KNIGHT ([id number]) [facility] ([facility]) [address] [place] [address] 94734 Glomerular filtration rate/1.73 sq M.predicted 61 mL/min/1.73m*2 Normal >60 [facility] Comment on above: Result Comment: Calc ulations of estimated GFR are performed using the 2020 CKD-EPI Study Refit equation without the race variable for the IDMS-Traceable creatinine methods. https://jasn.asnjournals.org/content/early//ASN.17711 98310 Performed By: #### 5 8410-2 #### OMERO KNIGHT (75051) [facility] ([facility]) [address] [place] [address] 30259 Glucose [Mass/Vol] 110 mg/dL High 74-99 [facility] Comment on above: Performed By: #### 5 8410-2 #### OMERO KNIGHT (17265) [facility] ([facility]) [address] [place] [address] 09130 Phosphate [Mass/Vol] 3.3 mg/dL Normal 2.5-4.9 [facility] Comment on above: Result Comment: The performance characteristics of phosphorus testing in heparinized plasma have been validated by the individual laboratory site where testing is performed. Testing on heparinized plasma is not approved by the FDA; however, such approval is not necessary. Performed By: #### 5 8410-2 #### OMERO KNIGHT (49138) [facility] ([facility]) [address] [place] [address] 55193 Potassium [Moles/Vol] 3.4 mmol/L Low 3.5-5.3 [facility] Comment on above: Performed By: #### 5 8410-2 #### OMERO KNIGHT (33011) [facility] ([facility]) [address] [place] [address] 28159 Sodium [Moles/Vol] 138 mmol/L Normal 136-145 [facility] Comment on above: Performed By: #### 5 8410-2 #### OMERO KNIGHT ([id number]) [facility] ([facility]) [facility] [place] [address] Urea nitrogen [Mass/Vol] 16 mg/dL Normal - [facility] Comment on above: Performed By: #### 5 8410-2 #### OMERO KNIGHT (04757) [facility] ([facility]) [facility] [place] [address] XR Chest Single viewon 11-13 [facility] [place] Work Phone: XR Chest Single viewOrdered By: Bunny Asher on 11-14-2023 [place] Work Phone: XR tomography Unspecified bhavik dy regionon 11-14-2023 IMAGING BROAD RANGE PCR-BACTERIAon 0 11-13-2023 SCAN RESULT See Scanned Result Normal [facility] Comment on above: Order Comment: EPIDU RAL ABSCESS Performed By: #### 1 9123-9 #### OMERO KNIGHT ([id number]) [facility] ([facility]) [address] [place] [address] 79022 Bacteria identifiedon 2023 Bacteria identified Cx Nom (Unsp spec) Test: Tissue/Wound Culture/Smear Specimen Source: Wound/Tissue Specimen Type: Tissue/Biopsy Specimen Date: 11/13/2023 1111 Result Date: 11/15/2023 1013 Result Status: Final result Resulting Lab: [facility] [address] [place] [address] CULTURE No growth aerobically and anaerobically STAIN (1+) Rare Polymorphonuclear leukocytes No organisms seen Normal [facility] Comment on above: Performed By: #### 5 8410-2 #### OMERO KNIGHT ([id number]) [facility] ([facility]) [address] [place] [address] 62431 Bacteria identified Cx Nom ( Bld)on 11-13-2023 Interpretation and review of laboratory results Normal [facility] Blood type and Indirect anti body screen panel (Bld)on 11-13-2023 ABO group Nom (Bld) O [facility] Blood group antibody screen Ql Negative [place] D Ag Ql (Bld) Positive [facility] ABO group Nom (Bld) O Normal [facility] Comment on above: Performed By: #### 4 548-4 #### OMERO KNIGHT ([id number]) [facility] ([facility]) [address] [place] [address] Blood group antibody screen Ql Negative Normal [facility] Comment on above: Performed By: #### 4 548-4 #### OMERO KNIGHT ([id number]) [facility] ([facility]) [address] [place] [address] D Ag Ql (Bld) Positive [facility] Comment on above: Performed By: #### 4 548-4 #### OMERO KNIGHT ([id number]) [facility] ([facility]) [address] [place] [address] CT Guidance for deep biopsy of Boneon 11-13-2023 Radiology Study observation (narrative) [place] Work Phone: Glucose Test strip manual (B ld) [Mass/Vol]on 11-13-2023 Glucose [Mass/Vol] 122 mg/dL High 74 - 99 mg/dL [place] Interpretation and review of laboratory results Abnormal [facility] Glucose [Mass/Vol] 122 mg/dL High 74-99 [facility] Comment on above: Performed By: #### 4 548-4 #### OMERO KNIGHT ([id number]) [facility] ([facility]) [address] [place] [address] Glucose [Mass/Vol] 171 mg/dL High 74 - 99 mg/dL [place] Interpretation and review of laboratory results Abnormal [facility] Glucose [Mass/Vol] 171 mg/dL High 74-99 [facility] Comment on above: Performed By: #### 4 548-4 #### OMERO KNIGHT ([id number]) [facility] ([facility]) [facility] [place] [address] Glucose [Mass/Vol] 122 mg/dL High 74 - 99 mg/dL [place] Interpretation and review of laboratory results Abnormal [facility] Glucose [Mass/Vol] 122 mg/dL High 74-99 [facility] Comment on above: Performed By: #### 4 548-4 #### OMERO KNIGHT ([id number]) [facility] ([facility]) [facility] [place] [address] Glucose [Mass/Vol] 109 mg/dL High 74 - 99 mg/dL [place] Interpretation and review of laboratory results Abnormal [facility] Glucose [Mass/Vol] 109 mg/dL High 74-99 [facility] Comment on above: Performed By: #### 4 548-4 #### OMERO KNIGHT ([id number]) [facility] ([facility]) [address] [place], [place] [address] Laboratory - Microbiology an d Antimicrobial susceptibilityon 11-13-2023 Bacteria identified Cx Nom (Bld) No growth at 4 days - FINAL REPORT [place] Surgical pathology studyon 0 11-13-2023 Surgical pathology study Pathology report.total SEE COMMENT Surgical Pathology Case: [id number] Authorizing Provider: Ru Santos MD Collected: 11/13/2023 1109 Ordering Location: [facility] Received: 11/13/[address] [place] [address] Pathologist: Edmundo Joe MD Specimen: BONE BIOPSY [...] in one cassette following decalcification. RCC Normal [facility] Urinalysis complete W Reflex Culture panel (U)on 11-13-2023 Appearance (U) Clear Clear [place] Bilirubin (U) [Mass/Vol] Negative NEGATIVE [place] Color (U) Light-Yellow Light-Yellow , Yellow, Dark-Yellow [place] Epithelial cells.squamous Auto (Urine sed) [#/Area] 1-9 (SPARSE) Reference range not established. /HPF [place] Glucose Auto test strip (U) [Mass/Vol] Normal Normal mg/dL [place] Interpretation and review of laboratory results Normal [place] Ketones (U) [Mass/Vol] Negative NEGAT JORGE mg/dL [place] Leukocyte esterase Auto test strip Ql (U) Negative NEGATIVE [facility] Nitrite Auto test strip Ql (U) Negative NEGATIVE [place] pH (U) 7.0 [pH] 5.0, 5.5, 6.0, 6.5, 7.0, 7.5, 8.0 [place] Protein (U) [Mass/Vol] 20 (TRACE) NEGAT JORGE, 10 (TRACE), 20 (TRACE) mg/dL [place] RBC (U) [#/Vol] Negative NEGATIVE [facility] RBC Auto (Urine sed) [#/Area] 1-2 NONE, 1-2, 3-5 /HPF [place] Specific gravity (U) [Rel density] 1.011 1.005 - 1.035 [place] Urobilinogen (U) [Mass/Vol] Normal Normal mg/dL [place] WBC Auto (Urine sed) [#/Area] 1-5 1-5, NONE /HPF [facility] Appearance (U) Clear Normal Clear [facility] Comment on above: Performed By: #### 4 548-4 #### JAMIL EUGENE ([id number]) [facility] ([facility]) [address] [place] [address] Bilirubin (U) [Mass/Vol] Negative Normal NEGATIVE [facility] Comment on above: Performed By: #### 4 548-4 #### OMERO KNIGHT (46395) [facility] ([facility]) [address] [place], [place] [address] Color (U) Light-Yellow Normal Light-Yellow , Yellow, Dark-Yellow [facility] Comment on above: Performed By: #### 4 548-4 #### OMERO KNIGHT ([id number]) [facility] ([facility]) [address] [place] [address] Epithelial cells.squamous Auto (Urine sed) [#/Area] 1-9 (SPARSE) Normal Reference range not established. [facility] Comment on above: Performed By: #### 4 548-4 #### OMERO KNIGHT ([id number]) [facility] ([facility]) [address] [place] [address] Glucose Auto test strip (U) [Mass/Vol] Normal Normal Normal [facility] Comment on above: Performed By: #### 4 548-4 #### OMERO KNIGHT ([id number]) [facility] ([facility]) [address] [place] [id number] Ketones (U) [Mass/Vol] Negative Normal NEGATIVE [facility] Comment on above: Performed By: #### 4 548-4 #### OMERO KNIGHT ([id number]) [facility] ([facility]) [address] [place] [address] 10107 Leukocyte esterase Auto test strip Ql (U) Negative Normal NEGATIVE [facility] Comment on above: Performed By: #### 4 548-4 #### OMERO KNIGHT ([id number]) [facility] ([facility]) [address] [place] [address] 14921 Nitrite Auto test strip Ql (U) Negative Normal NEGATIVE [facility] Comment on above: Performed By: #### 4 548-4 #### OMERO KNIGHT ([id number]) [facility] ([facility]) [address] [place] [address] 59447 pH (U) 7.0 [pH] Normal 5.0, 5.5, 6.0, 6.5, 7.0, 7.5, 8.0 [facility] Comment on above: Performed By: #### 4 548-4 #### OMERO KNIGHT ([id number]) [facility] ([facility]) [address] [place] [address] 30593 Protein (U) [Mass/Vol] 20 (TRACE) Normal NEGAT JORGE, 10 (TRACE), 20 (TRACE) [facility] Comment on above: Performed By: #### 4 548-4 #### OMERO KNIGHT ([id number]) [facility] ([facility]) [address] [place] [address] 87997 RBC (U) [#/Vol] Negative Normal NEGATIVE [facility] Comment on above: Performed By: #### 4 548-4 #### OMERO KNIGHT ([id number]) [facility] ([facility]) [address] [place] [address] 55663 RBC Auto (Urine sed) [#/Area] 1-2 Normal NONE, 1-2, 3-5 [facility] Comment on above: Performed By: #### 4 548-4 #### OMERO KNIGHT ([id number]) [facility] ([facility]) [address] [place] [address] 60337 Specific gravity (U) [Rel density] 1.011 Normal 1.005-1.035 [facility] Comment on above: Performed By: #### 4 548-4 #### OMERO KNIGHT ([id number]) [facility] ([facility]) [address] [place] [address] 91651 Urobilinogen (U) [Mass/Vol] Normal Normal Normal [facility] Comment on above: Performed By: #### 4 548-4 #### OMERO KNIGHT ([id number]) [facility] ([facility]) [address] [place] [address] 17080 WBC Auto (Urine sed) [#/Area] 1-5 Normal 1-5, NONE [facility] Comment on above: Performed By: #### 4 548-4 #### OMERO KNIGHT ([id number]) [facility] ([facility]) [address] [place] [address] Vancomycinon 11-13-2023 Vancomycin [Mass/Vol] 17.5 ug/mL 5.0 - 20.0 ug/mL [place] Vancomycin [Mass/Vol] 17.5 ug/mL Normal 5.0-20.0 [facility] Comment on above: Order Comment: Diagn osis of Diabetes-Adults Non-Diabetic: < or = 5.6% Increased risk for developing diabetes: 5.7-6.4% Diagnostic of diabetes: > or = 6.5% Monitoring of Diabetes Age (y)....................... Therapeutic Goal (%) Adults: >18.........................<7.0 Pediatrics: 13-18...................<7.5 Pediatrics: 7-12....................<8.0 Pediatrics: 0-6..................... 7.5-8.5 [place] [employer]. Diabetes Care 33(S1), Apr 2009 Performed By: #### 4 548-4 #### JAMIL EUGENE ([id number]) [facility] ([facility]) [facility] [place] [address] Vancomycin [Mass/Vol]on Interpretation and review of laboratory results Normal [facility] XR CHEST 1 VIEWon 11-13-2023 XR CHEST 1 VIEW Interpreted By: Bunny Asher and [place] STUDY: XR CHEST 1 VIEW; 11/13/2023 11:11 pm INDICATION: Signs/Symptoms:preop. COMPARISON: CT chest abdomen pelvis 11/06/2023 ACCESSION NUMBER(S): [id number] ORDERING CLINICIAN: RU SANTOS FINDINGS: AP upright radiograph of the chest [...] as stated. This study was interpreted at [facility], [place], [place]. MACRO: None Signed by: Bunny Asher 11/14/2023 7:48 AM Dictation workstation: [id number] Normal [facility] XR Chest Single viewon 11-12 Radiology Study observation (narrative) [place] Work Phone: Basic metabolic 2000 panelon 11-12-2023 Anion gap [Moles/Vol] 11 mmol/L 10 - 2 0 mmol/L [place] Calcium [Mass/Vol] 8.8 mg/dL 8.6 - 10. 6 mg/dL [place] Chloride [Moles/Vol] 95 mmol/L Low 98 - 10 7 mmol/L [place] CO2 [Moles/Vol] 34 mmol/L High 21 - 32 mmol/L [place] Creatinine [Mass/Vol] 0.75 mg/dL 0.50 - 1.05 mg/dL [place] GFR/1.73 sq M.predicted among non-blacks MDRD (S/P/Bld) [Vol rate/Area] 83 mL/min/{1.73_m2} - PINF [place] Glucose [Mass/Vol] 118 mg/dL High 74 - 99 mg/dL [place] Potassium [Moles/Vol] 3.5 mmol/L 3.5 - 5.3 mmol/L [place] Sodium [Moles/Vol] 136 mmol/L 136 - 145 mmol/L [place] Urea nitrogen [Mass/Vol] 13 mg/dL 6 - 23 mg/dL [place] Anion gap [Moles/Vol] 11 mmol/L Normal 10-20 [facility] Comment on above: Performed By: #### 2 132-9 #### OMERO KNIGHT ([id number]) [facility] ([facility]) [address] [place] [address] 33379 Calcium [Mass/Vol] 8.8 mg/dL Normal 8.6-10.6 [facility] Comment on above: Performed By: #### 2 132-9 #### OMERO KNIGHT ([id number]) [facility] ([facility]) [address] [place] [address] 51396 Chloride [Moles/Vol] 95 mmol/L Low 98-107 [facility] Comment on above: Performed By: #### 2 132-9 #### OMERO KNIGHT ([id number]) [facility] ([facility]) [address] [place] [address] 45457 CO2 [Moles/Vol] 34 mmol/L High 21-32 [facility] Comment on above: Performed By: #### 2 132-9 #### OMERO KNIGHT ([id number]) [facility] ([facility]) [address] [place] [address] 51364 Creatinine [Mass/Vol] 0.75 mg/dL Normal 0.50-1.05 [facility] Comment on above: Performed By: #### 2 132-9 #### OMERO KNIGHT ([id number]) [facility] ([facility]) [address] [place] [address] 12069 Glomerular filtration rate/1.73 sq M.predicted 83 mL/min/1.73m*2 Normal >60 [facility] Comment on above: Result Comment: Calc ulations of estimated GFR are performed using the 2020 CKD-EPI Study Refit equation without the race variable for the IDMS-Traceable creatinine methods. https://jasn.asnjournals.org/content/early//ASN.21520 79311 Performed By: #### 2 132-9 #### OMERO KNIGHT ([id number]) [facility] ([facility]) [address] [place] [address] 91237 Glucose [Mass/Vol] 118 mg/dL High 74-99 [facility] Comment on above: Performed By: #### 2 132-9 #### OMERO KNIGHT ([id number]) [facility] ([facility]) [address] [place] [address] 29127 Potassium [Moles/Vol] 3.5 mmol/L Normal 3.5-5.3 [facility] Comment on above: Performed By: #### 2 132-9 #### OMERO KNIGHT ([id number]) [facility] ([facility]) [address] [place] [address] 88144 Sodium [Moles/Vol] 136 mmol/L Normal 136-145 [facility] Comment on above: Performed By: #### 2 132-9 #### OMERO KNIGHT ([id number]) [facility] ([facility]) [address] [place] [address] 63953 Urea nitrogen [Mass/Vol] 13 mg/dL Normal 6-23 [facility] Comment on above: Performed By: #### 2 132-9 #### OMERO KNIGHT ([id number]) [facility] ([facility]) [address] [place] [address] 77099 Blood type and Indirect anti body screen panel (Bld)on 11-12-2023 ABO group Nom (Bld) O [facility] Blood group antibody screen Ql Negative [place] D Ag Ql (Bld) Positive [facility] ABO group Nom (Bld) O Normal [facility] Comment on above: Performed By: #### 2 132-9 #### OMERO KNIGHT ([id number]) [facility] ([facility]) [address] [place] [address] 20454 Blood group antibody screen Ql Negative [facility] Comment on above: Performed By: #### 2 132-9 #### OMERO KNIGHT ([id number]) [facility] ([facility]) [address] [place] [address] 11293 D Ag Ql (Bld) Positive [facility] Comment on above: Result Comment: 2nd ABO test required. Order and Collect VERAB Performed By: #### 2 132-9 #### JAMIL EUGENE ([id number]) [facility] ([facility]) [address] [place] [address] CBC W Auto Differential pane l (Bld)on 11-12-2023 Basophils (Bld) [#/Vol] 0.05 10*3/uL [place] Basophils/100 WBC (Bld) 0.7 % 0.0 - 2.0 % [place] Eosinophils (Bld) [#/Vol] 0.15 10*3/uL [place] Eosinophils/100 WBC (Bld) 2.1 % 0.0 - 6.0 % [place] Erythrocyte distribution width (RBC) [Ratio] 15.4 % High 11.5 - 14.5 % [place] Hematocrit (Bld) [Volume fraction] 33.7 % Low 36.0 - 46.0 % [place] Hemoglobin (Bld) [Mass/Vol] 10.8 g/dL Low 12.0 - 16.0 g/dL [place] Immature granulocytes (Bld) [#/Vol] 0.03 10*3/uL [place] Immature granulocytes/100 WBC (Bld) 0.4 % 0.0 - 0.9 % [place] Interpretation and review of laboratory results Abnormal [place] Lymphocytes (Bld) [#/Vol] 3.21 10*3/uL High [place] Lymphocytes/100 WBC (Bld) 43.9 % 13.0 - 44.0 % [place] MCH (RBC) [Entitic mass] 26.8 pg 26.0 - 34.0 pg [place] MCHC (RBC) [Mass/Vol] 32.0 g/dL 32.0 - 36.0 g/dL [place] MCV (RBC) [Entitic vol] 84 fL 80 - 100 fL [place] Monocytes (Bld) [#/Vol] 0.66 10*3/uL [place] Monocytes/100 WBC (Bld) 9.0 % 2.0 - 10.0 % [place] Neutrophils (Bld) [#/Vol] 3.21 10*3/uL [place] Neutrophils/100 WBC (Bld) 43.9 % 40.0 - 80.0 % [place] Nucleated RBC/100 WBC (Bld) [Ratio] 0.0 % [place] Platelets (Bld) [#/Vol] 223 10*3/uL [place] RBC (Bld) [#/Vol] 4.03 10*6/uL [facility] WBC (Bld) [#/Vol] 7.3 10*3/uL [facility] Basophils (Bld) [#/Vol] 0.05 x10*3/uL Normal 0.00-0.10 [facility] Comment on above: Performed By: #### 2 132-9 #### OMERO KNIGHT ([id number]) [facility] ([facility]) [address] [place] [address] 20824 Basophils/100 WBC (Bld) 0.7 % Normal 0.0-2.0 [facility] Comment on above: Performed By: #### 2 132-9 #### OMERO KNIGHT ([id number]) [facility] ([facility]) [address] [place] [address] 12768 Eosinophils (Bld) [#/Vol] 0.15 x10*3/uL Normal 0.00-0.40 [facility] Comment on above: Performed By: #### 2 132-9 #### OMERO KNIGHT ([id number]) [facility] ([facility]) [address] [place] [address] 92177 Eosinophils/100 WBC (Bld) 2.1 % Normal 0.0-6.0 [facility] Comment on above: Performed By: #### 2 132-9 #### OMERO KNIGHT ([id number]) [facility] ([facility]) [address] [place] [address] 81496 Erythrocyte distribution width (RBC) [Ratio] 15.4 % High 11.5-14.5 [facility] Comment on above: Performed By: #### 2 132-9 #### OMERO KNIGHT ([id number]) [facility] ([facility]) [address] [place] [address] 72596 Hematocrit (Bld) [Volume fraction] 33.7 % Low 36.0-46.0 [facility] Comment on above: Performed By: #### 2 132-9 #### OMERO KNIGHT ([id number]) [facility] ([facility]) [address] [place] [address] 36929 Hemoglobin (Bld) [Mass/Vol] 10.8 g/dL Low 12.0-16.0 [facility] Comment on above: Performed By: #### 2 132-9 #### OMERO KNIGHT ([id number]) [facility] ([facility]) [address] [place] [address] 26708 Immature granulocytes (Bld) [#/Vol] 0.03 x10*3/uL Normal 0.00-0.50 [facility] Comment on above: Performed By: #### 2 132-9 #### OMERO KNIGHT ([id number]) [facility] ([facility]) [address] [place] [address] 63739 Immature granulocytes/100 WBC (Bld) 0.4 % Normal 0.0-0.9 [facility] Comment on above: Result Comment: Martina ture Granulocyte Count (IG) includes promyelocytes, myelocytes and metamyelocytes but does not include bands. Percent differential counts (%) should be interpreted in the context of the absolute cell counts (cells/UL). Performed By: #### 2 132-9 #### OMERO KNIGHT ([id number]) [facility] ([facility]) [address] [place] [address] 14195 Lymphocytes (Bld) [#/Vol] 3.21 x10*3/uL High 0.80-3.00 [facility] Comment on above: Performed By: #### 2 132-9 #### OMERO KNIGHT ([id number]) [facility] ([facility]) [address] [place] [address] 50039 Lymphocytes/100 WBC (Bld) 43.9 % Normal 13.0-44.0 [facility] Comment on above: Performed By: #### 2 132-9 #### OMERO KNIGHT ([id number]) [facility] ([facility]) [address] [place] [address] 79999 MCH (RBC) [Entitic mass] 26.8 pg Normal 26.0-34.0 [facility] Comment on above: Performed By: #### 2 132-9 #### OMERO KNIGHT ([id number]) [facility] ([facility]) [address] [place] [address] 02887 MCHC (RBC) [Mass/Vol] 32.0 g/dL Normal 32.0-36.0 [facility] Comment on above: Performed By: #### 2 132-9 #### OMERO KNIGHT ([id number]) [facility] ([facility]) [address] [place] [address] 30379 MCV (RBC) [Entitic vol] 84 fL Normal 80-100 [facility] Comment on above: Performed By: #### 2 132-9 #### OMERO KNIGHT ([id number]) [facility] ([facility]) [address] [place] [address] 90765 Monocytes (Bld) [#/Vol] 0.66 x10*3/uL Normal 0.05-0.80 [facility] Comment on above: Performed By: #### 2 132-9 #### OMERO KNIGHT ([id number]) [facility] ([facility]) [address] [place] [address] 43507 Monocytes/100 WBC (Bld) 9.0 % Normal 2.0-10.0 [facility] Comment on above: Performed By: #### 2 132-9 #### OMERO KNIGHT ([id number]) [facility] ([facility]) [address] [place] [address] 47134 Neutrophils (Bld) [#/Vol] 3.21 x10*3/uL Normal 1.60-5.50 [facility] Comment on above: Result Comment: Perc ent differential counts (%) should be interpreted in the context of the absolute cell counts (cells/uL). Performed By: #### 2 132-9 #### OMERO KNIGHT ([id number]) [facility] ([facility]) [address] [place] [address] 23291 Neutrophils/100 WBC (Bld) 43.9 % Normal 40.0-80.0 [facility] Comment on above: Performed By: #### 2 132-9 #### OMERO KNIGHT ([id number]) [facility] ([facility]) [address] [place] [address] 56726 Nucleated RBC/100 WBC (Bld) [Ratio] 0.0 /100 WBCs Normal 0.0-0.0 [facility] Comment on above: Performed By: #### 2 132-9 #### OMERO KNIGHT ([id number]) [facility] ([facility]) [address] [place] [address] 36900 Platelets (Bld) [#/Vol] 223 x10*3/uL Normal 150-450 [facility] Comment on above: Performed By: #### 2 132-9 #### OMERO KNIGHT ([id number]) [facility] ([facility]) [address] [place] [address] 53151 RBC (Bld) [#/Vol] 4.03 x10*6/uL Normal 4.00-5.20 [facility] Comment on above: Performed By: #### 2 132-9 #### OMERO KNIGHT ([id number]) [facility] ([facility]) [address] [place] [address] 47086 WBC (Bld) [#/Vol] 7.3 x10*3/uL Normal 4.4-11.3 [facility] Comment on above: Performed By: #### 2 132-9 #### OMERO KNIGHT ([id number]) [facility] ([facility]) [address] [place] [address] 08072 Glucose Test strip manual (B ld) [Mass/Vol]on 11-12-2023 Glucose [Mass/Vol] 110 mg/dL High 74 - 99 mg/dL [place] Interpretation and review of laboratory results Abnormal [facility] Glucose [Mass/Vol] 110 mg/dL High 74-99 [facility] Comment on above: Performed By: #### 4 548-4 #### OMERO KNIGHT ([id number]) [facility] ([facility]) [address] [place] [address] 79932 Glucose [Mass/Vol] 141 mg/dL High 74 - 99 mg/dL [place] Interpretation and review of laboratory results Abnormal [facility] Glucose [Mass/Vol] 141 mg/dL High 74-99 [facility] Comment on above: Performed By: #### 4 548-4 #### OMERO KNIGHT ([id number]) [facility] ([facility]) [address] [place] [address] 99396 Glucose [Mass/Vol] 127 mg/dL High 74 - 99 mg/dL [place] Interpretation and review of laboratory results Abnormal [facility] Glucose [Mass/Vol] 127 mg/dL High 74-99 [facility] Comment on above: Performed By: #### 2 132-9 #### OMERO KNIGHT ([id number]) [facility] ([facility]) [address] [place] [address] 39257 Glucose [Mass/Vol] 133 mg/dL High 74 - 99 mg/dL [place] Interpretation and review of laboratory results Abnormal [facility] Glucose [Mass/Vol] 133 mg/dL High 74-99 [facility] Comment on above: Performed By: #### 2 132-9 #### OMERO KNIGHT ([id number]) [facility] ([facility]) [address] [place] [address] 70224 Hepatic function 2000 panelo n 11-12-2023 Albumin BCP dye [Mass/Vol] 2.8 g/dL Low 3.4 - 5.0 g/dL [place] ALP [Catalytic activity/Vol] 143 U/L High 33 - 136 U/L [place] ALT With P-5'-P [Catalytic activity/Vol] 8 U/L 7 - 45 U/L [place] AST With P-5'-P [Catalytic activity/Vol] 17 U/L 9 - 39 U/L [place] Bilirubin [Mass/Vol] 0.3 mg/dL 0.0 - 1 .2 mg/dL [place] Bilirubin.direct [Mass/Vol] 0.1 mg/dL 0.0 - 0.3 mg/dL [place] Protein [Mass/Vol] 6.0 g/dL Low 6.4 - 8.2 g/dL [place] Albumin BCP dye [Mass/Vol] 2.8 g/dL Low 3.4-5.0 [facility] Comment on above: Performed By: #### 2 132-9 #### OMERO KNIGHT ([id number]) [facility] ([facility]) [address] [place] [address] 24583 ALP [Catalytic activity/Vol] 143 U/L High 33-136 [facility] Comment on above: Performed By: #### 2 132-9 #### OMERO KNIGHT ([id number]) [facility] ([facility]) [address] [place] [address] 80364 ALT With P-5'-P [Catalytic activity/Vol] 8 U/L Normal 7-45 [facility] Comment on above: Result Comment: Madhavi ents treated with Sulfasalazine may generate falsely decreased results for ALT. Performed By: #### 2 132-9 #### OMERO KNIGHT ([id number]) [facility] ([facility]) [address] [place] [address] 65239 AST With P-5'-P [Catalytic activity/Vol] 17 U/L Normal 9-39 [facility] Comment on above: Performed By: #### 2 132-9 #### OMERO KNIGHT ([id number]) [facility] ([facility]) [address] [place] [address] 68333 Bilirubin [Mass/Vol] 0.3 mg/dL Normal 0.0-1.2 [facility] Comment on above: Performed By: #### 2 132-9 #### OMERO KNIGHT ([id number]) [facility] ([facility]) [address] [place] [address] 23940 Bilirubin.direct [Mass/Vol] 0.1 mg/dL Normal 0.0-0.3 [facility] Comment on above: Performed By: #### 2 132-9 #### OMERO KNIGHT ([id number]) [facility] ([facility]) [address] [place] [phone] Protein [Mass/Vol] 6.0 g/dL Low 6.4-8.2 [facility] Comment on above: Performed By: #### 2 132-9 #### OMERO KNIGHT ([id number]) [facility] ([facility]) [address] [place] [address] 68397 Magnesiumon 11-12-2023 Magnesium [Mass/Vol] 1.85 mg/dL 1.60 - 2.40 mg/dL [place] Magnesium [Mass/Vol] 1.85 mg/dL Normal 1.60-2.40 [facility] Comment on above: Performed By: #### 2 132-9 #### OMERO KNIGHT ([id number]) [facility] ([facility]) [address] [place] [address] No Panel Informationon 11-11 Interpretation and review of laboratory results Abnormal [facility] Interpretation and review of laboratory results Normal [facility] PT and aPTT panel Coag (PPP) on 11-12-2023 aPTT Coag (PPP) [Time] 34 s Un [facility] INR Coag (PPP) [Relative time] 1.1 {INR} 0.9 - 1.1 [place] Interpretation and review of laboratory results Normal [place] PT Coag (PPP) [Time] 12.5 s [facility] aPTT Coag (PPP) [Time] 34 s Normal 27-38 [facility] Comment on above: Order Comment: The A PTT is no longer used for monitoring Unfractionated Heparin Therapy. For monitoring Heparin Therapy, use the Heparin Assay. Performed By: #### 2 132-9 #### OMERO KNIGHT ([id number]) [facility] ([facility]) [address] [place], [place] [phone] INR Coag (PPP) [Relative time] 1.1 Normal 0.9-1.1 [facility] Comment on above: Order Comment: The A PTT is no longer used for monitoring Unfractionated Heparin Therapy. For monitoring Heparin Therapy, use the Heparin Assay. Performed By: #### 2 132-9 #### OMERO KNIGHT ([id number]) [facility] ([facility]) [address] [place] [address] 41246 PT Coag (PPP) [Time] 12.5 s Normal 9.8-12.8 [facility] Comment on above: Order Comment: The A PTT is no longer used for monitoring Unfractionated Heparin Therapy. For monitoring Heparin Therapy, use the Heparin Assay. Performed By: #### 2 132-9 #### OMERO KNIGHT ([id number]) [facility] ([facility]) [facility] [place] [address] Phosphateon 11-12-2023 Phosphate [Mass/Vol] 2.5 mg/dL Normal 2.5-4.9 [facility] Comment on above: Result Comment: The performance characteristics of phosphorus testing in heparinized plasma have been validated by the individual laboratory site where testing is performed. Testing on heparinized plasma is not approved by the FDA; however, such approval is not necessary. Performed By: #### 2 132-9 #### OMERO KNIGHT ([id number]) [facility] ([facility]) [facility] [place] [address] Phosphoruson 11-12-2023 Phosphate [Mass/Vol] 2.5 mg/dL 2.5 - 4 .9 mg/dL [place] CBC W Auto Differential pane l (Bld)on 11-11-2023 Basophils (Bld) [#/Vol] 0.03 10*3/uL [place] Basophils/100 WBC (Bld) 0.5 % 0.0 - 2.0 % [place] Eosinophils (Bld) [#/Vol] 0.15 10*3/uL [place] Eosinophils/100 WBC (Bld) 2.3 % 0.0 - 6.0 % [place] Erythrocyte distribution width (RBC) [Ratio] 15.4 % High 11.5 - 14.5 % [place] Hematocrit (Bld) [Volume fraction] 33.4 % Low 36.0 - 46.0 % [place] Hemoglobin (Bld) [Mass/Vol] 10.6 g/dL Low 12.0 - 16.0 g/dL [place] Immature granulocytes (Bld) [#/Vol] 0.02 10*3/uL [place] Immature granulocytes/100 WBC (Bld) 0.3 % 0.0 - 0.9 % [place] Interpretation and review of laboratory results Abnormal [place] Lymphocytes (Bld) [#/Vol] 2.41 10*3/uL [place] Lymphocytes/100 WBC (Bld) 37.4 % 13.0 - 44.0 % [place] MCH (RBC) [Entitic mass] 26.6 pg 26.0 - 34.0 pg [place] MCHC (RBC) [Mass/Vol] 31.7 g/dL Low 32.0 - 36.0 g/dL [place] MCV (RBC) [Entitic vol] 84 fL 80 - 100 fL [place] Monocytes (Bld) [#/Vol] 0.56 10*3/uL [place] Monocytes/100 WBC (Bld) 8.7 % 2.0 - 10.0 % [place] Neutrophils (Bld) [#/Vol] 3.28 10*3/uL [place] Neutrophils/100 WBC (Bld) 50.8 % 40.0 - 80.0 % [place] Nucleated RBC/100 WBC (Bld) [Ratio] 0.0 % [place] Platelets (Bld) [#/Vol] 219 10*3/uL [place] RBC (Bld) [#/Vol] 3.98 10*6/uL Low [facility] WBC (Bld) [#/Vol] 6.5 10*3/uL [facility] Basophils (Bld) [#/Vol] 0.03 x10*3/uL Normal 0.00-0.10 [facility] Comment on above: Performed By: #### 2 4331-1 #### JAMIL EUGENE ([id number]) [facility] ([facility]) [address] [place] [address] 68096 Basophils/100 WBC (Bld) 0.5 % Normal 0.0-2.0 [facility] Comment on above: Performed By: #### 2 4331-1 #### OMERO KNIGHT ([id number]) [facility] ([facility]) [address] [place] [address] 32922 Eosinophils (Bld) [#/Vol] 0.15 x10*3/uL Normal 0.00-0.40 [facility] Comment on above: Performed By: #### 2 4331-1 #### OMERO KNIGHT ([id number]) [facility] ([facility]) [address] [place] [address] 98434 Eosinophils/100 WBC (Bld) 2.3 % Normal 0.0-6.0 [facility] Comment on above: Performed By: #### 2 4331-1 #### OMERO KNIGHT ([id number]) [facility] ([facility]) [address] [place] [address] 81408 Erythrocyte distribution width (RBC) [Ratio] 15.4 % High 11.5-14.5 [facility] Comment on above: Performed By: #### 2 4331-1 #### OMERO KNIGHT ([id number]) [facility] ([facility]) [address] [place] [address] 13334 Hematocrit (Bld) [Volume fraction] 33.4 % Low 36.0-46.0 [facility] Comment on above: Performed By: #### 2 4331-1 #### OMERO KNIGHT ([id number]) [facility] ([facility]) [address] [place] [address] 55297 Hemoglobin (Bld) [Mass/Vol] 10.6 g/dL Low 12.0-16.0 [facility] Comment on above: Performed By: #### 2 4331-1 #### OMERO KNIGHT ([id number]) [facility] ([facility]) [address] [place] [address] 46864 Immature granulocytes (Bld) [#/Vol] 0.02 x10*3/uL Normal 0.00-0.50 [facility] Comment on above: Performed By: #### 2 4331-1 #### OMERO KNIGHT ([id number]) [facility] ([facility]) [facility] [place] [address] Immature granulocytes/100 WBC (Bld) 0.3 % Normal 0.0-0.9 [facility] Comment on above: Result Comment: Martina ture Granulocyte Count (IG) includes promyelocytes, myelocytes and metamyelocytes but does not include bands. Percent differential counts (%) should be interpreted in the context of the absolute cell counts (cells/UL). Performed By: #### 2 4331-1 #### OMERO KNIGHT ([id number]) [facility] ([facility]) [address] [place] [address] 36368 Lymphocytes (Bld) [#/Vol] 2.41 x10*3/uL Normal 0.80-3.00 [facility] Comment on above: Performed By: #### 2 4331-1 #### OMERO KNIGHT ([id number]) [facility] ([facility]) [address] [place] [address] 64361 Lymphocytes/100 WBC (Bld) 37.4 % Normal 13.0-44.0 [facility] Comment on above: Performed By: #### 2 4331-1 #### OMERO KNIGHT ([id number]) [facility] ([facility]) [address] [place] [address] 02014 MCH (RBC) [Entitic mass] 26.6 pg Normal 26.0-34.0 [facility] Comment on above: Performed By: #### 2 4331-1 #### OMERO KNIGHT (32851) [facility] ([facility]) [address] [place] [address] 58297 MCHC (RBC) [Mass/Vol] 31.7 g/dL Low 32.0-36.0 [facility] Comment on above: Performed By: #### 2 4331-1 #### OMERO KNIGHT ([id number]) [facility] ([facility]) [address] [place] [address] 42764 MCV (RBC) [Entitic vol] 84 fL Normal 80-100 [facility] Comment on above: Performed By: #### 2 4331-1 #### OMERO KNIGHT ([id number]) [facility] ([facility]) [address] [place] [address] 79202 Monocytes (Bld) [#/Vol] 0.56 x10*3/uL Normal 0.05-0.80 [facility] Comment on above: Performed By: #### 2 4331-1 #### OMERO KNIGHT ([id number]) [facility] ([facility]) [address] [place] [address] 75409 Monocytes/100 WBC (Bld) 8.7 % Normal 2.0-10.0 [facility] Comment on above: Performed By: #### 2 4331-1 #### OMERO KNIGHT ([id number]) [facility] ([facility]) [address] [place] [address] 22327 Neutrophils (Bld) [#/Vol] 3.28 x10*3/uL Normal 1.60-5.50 [facility] Comment on above: Result Comment: Perc ent differential counts (%) should be interpreted in the context of the absolute cell counts (cells/uL). Performed By: #### 2 4331-1 #### OMERO KNIGHT ([id number]) [facility] ([facility]) [address] [place] [address] 52269 Neutrophils/100 WBC (Bld) 50.8 % Normal 40.0-80.0 [facility] Comment on above: Performed By: #### 2 4331-1 #### OMERO KNIGHT (36563) [facility] ([facility]) [address] [place] [address] 14189 Nucleated RBC/100 WBC (Bld) [Ratio] 0.0 /100 WBCs Normal 0.0-0.0 [facility] Comment on above: Performed By: #### 2 4331-1 #### OMERO KNIGHT ([id number]) [facility] ([facility]) [address] [place] [address] 35156 Platelets (Bld) [#/Vol] 219 x10*3/uL Normal 150-450 [facility] Comment on above: Performed By: #### 2 4331-1 #### OMERO KNIGHT ([id number]) [facility] ([facility]) [address] [place] [address] 17683 RBC (Bld) [#/Vol] 3.98 x10*6/uL Low 4.00-5.20 [facility] Comment on above: Performed By: #### 2 4331-1 #### OMERO KNIGHT ([id number]) [facility] ([facility]) [address] [place] [address] 42848 WBC (Bld) [#/Vol] 6.5 x10*3/uL Normal 4.4-11.3 [facility] Comment on above: Performed By: #### 2 4331-1 #### OMERO KNIGHT (74490) [facility] ([facility]) [address] [place] [address] 39135 Glucose Test strip manual (B ld) [Mass/Vol]on 11-11-2023 Glucose [Mass/Vol] 132 mg/dL High 74 - 99 mg/dL [place] Interpretation and review of laboratory results Abnormal [facility] Glucose [Mass/Vol] 132 mg/dL High 74-99 [facility] Comment on above: Performed By: #### 2 132-9 #### OMERO KNIGHT ([id number]) [facility] ([facility]) [address] [place] [address] 01679 Glucose [Mass/Vol] 139 mg/dL High 74 - 99 mg/dL [place] Interpretation and review of laboratory results Abnormal [facility] Glucose [Mass/Vol] 139 mg/dL High 74-99 [facility] Comment on above: Performed By: #### 2 4331-1 #### OMERO KNIGHT (78393) [facility] ([facility]) [address] [place] [address] 13545 Glucose [Mass/Vol] 164 mg/dL High 74 - 99 mg/dL [place] Interpretation and review of laboratory results Abnormal [facility] Glucose [Mass/Vol] 164 mg/dL High 74-99 [facility] Comment on above: Performed By: #### 2 4331-1 #### OMERO KNIGHT ([id number]) [facility] ([facility]) [address] [place] [address] Glucose [Mass/Vol] 119 mg/dL High 74 - 99 mg/dL [place] Interpretation and review of laboratory results Abnormal [facility] Glucose [Mass/Vol] 119 mg/dL High 74-99 [facility] Comment on above: Performed By: #### 2 4331-1 #### OMERO KNIGHT (64761) [facility] ([facility]) [address] [place] [address] Magnesiumon 11-11-2023 Magnesium [Mass/Vol] 2.22 mg/dL 1.60 - 2.40 mg/dL [place] Magnesium [Mass/Vol] 2.22 mg/dL Normal 1.60-2.40 [facility] Comment on above: Performed By: #### 2 4331-1 #### OMERO KNIGHT (75482) [facility] ([facility]) [address] [place] [address] Magnesium [Mass/Vol] 1.41 mg/dL Low 1.60 - 2.40 mg/dL [place] Magnesium [Mass/Vol] 1.41 mg/dL Low 1.60-2.40 [facility] Comment on above: Performed By: #### 2 4331-1 #### OMERO KNIGHT ([id number]) [facility] ([facility]) [address] [place] [address] 12114 Magnesium [Mass/Vol]on 11-10 Interpretation and review of laboratory results Normal [place] No Panel Informationon 11-10 [place] Interpretation and review of laboratory results Abnormal [facility] Renal function 2000 panelon 11-11-2023 Albumin BCP dye [Mass/Vol] 2.6 g/dL Low 3.4 - 5.0 g/dL [place] Anion gap [Moles/Vol] 10 mmol/L 10 - 2 0 mmol/L [place] Calcium [Mass/Vol] 8.3 mg/dL Low 8.6 - 10. 6 mg/dL [place] Chloride [Moles/Vol] 93 mmol/L Low 98 - 10 7 mmol/L [place] CO2 [Moles/Vol] 35 mmol/L High 21 - 32 mmol/L [place] Creatinine [Mass/Vol] 0.79 mg/dL 0.50 - 1.05 mg/dL [place] GFR/1.73 sq M.predicted among non-blacks MDRD (S/P/Bld) [Vol rate/Area] 78 mL/min/{1.73_m2} - PINF [place] Glucose [Mass/Vol] 166 mg/dL High 74 - 99 mg/dL [place] Interpretation and review of laboratory results Abnormal [place] Phosphate [Mass/Vol] 2.0 mg/dL Low 2.5 - 4 .9 mg/dL [place] Potassium [Moles/Vol] 4.1 mmol/L 3.5 - 5.3 mmol/L [place] Sodium [Moles/Vol] 134 mmol/L Low 136 - 145 mmol/L [place] Urea nitrogen [Mass/Vol] 14 mg/dL 6 - 23 mg/dL [place] Albumin BCP dye [Mass/Vol] 2.6 g/dL Low 3.4-5.0 [facility] Comment on above: Performed By: #### 2 4331-1 #### OMERO KNIGHT ([id number]) [facility] ([facility]) [address] [place] [address] 83855 Anion gap [Moles/Vol] 10 mmol/L Normal 10-20 [facility] Comment on above: Performed By: #### 2 4331-1 #### OMERO KNIGHT (71806) [facility] ([facility]) [address] [place] [address] 98370 Calcium [Mass/Vol] 8.3 mg/dL Low 8.6-10.6 [facility] Comment on above: Performed By: #### 2 4331-1 #### OMERO KNIGHT (86109) [facility] ([facility]) [address] [place] [address] 22916 Chloride [Moles/Vol] 93 mmol/L Low 98-107 [facility] Comment on above: Performed By: #### 2 4331-1 #### OMERO KNIGHT ([id number]) [facility] ([facility]) [address] [place] [address] CO2 [Moles/Vol] 35 mmol/L High 21-32 [facility] Comment on above: Performed By: #### 2 4331-1 #### OMERO KNIGHT (72910) [facility] ([facility]) [facility] [place] [address] Creatinine [Mass/Vol] 0.79 mg/dL Normal 0.50-1.05 [facility] Comment on above: Performed By: #### 2 4331-1 #### OMERO KNIGHT (76304) [facility] ([facility]) [address] [place] [address] 46977 Glomerular filtration rate/1.73 sq M.predicted 78 mL/min/1.73m*2 Normal >60 [facility] Comment on above: Result Comment: Calc ulations of estimated GFR are performed using the 2020 CKD-EPI Study Refit equation without the race variable for the IDMS-Traceable creatinine methods. https://jasn.asnjournals.org/content/early//ASN.40384 77744 Performed By: #### 2 4331-1 #### OMERO KNIGHT (30109) [facility] ([facility]) [address] [place] [address] 99647 Glucose [Mass/Vol] 166 mg/dL High 74-99 [facility] Comment on above: Performed By: #### 2 4331-1 #### OMERO KNIGHT ([id number]) [facility] ([facility]) [address] [place] [address] 57654 Phosphate [Mass/Vol] 2.0 mg/dL Low 2.5-4.9 [facility] Comment on above: Result Comment: The performance characteristics of phosphorus testing in heparinized plasma have been validated by the individual laboratory site where testing is performed. Testing on heparinized plasma is not approved by the FDA; however, such approval is not necessary. Performed By: #### 2 4331-1 #### OMERO KNIGHT (24808) [facility] ([facility]) [facility] [place] [address] Potassium [Moles/Vol] 4.1 mmol/L Normal 3.5-5.3 [facility] Comment on above: Performed By: #### 2 4331-1 #### OMERO KNIGHT (01999) [facility] ([facility]) [address] [place] [address] Sodium [Moles/Vol] 134 mmol/L Low 136-145 [facility] Comment on above: Performed By: #### 2 4331-1 #### OMERO KNIGHT ([id number]) [facility] ([facility]) [facility] [place] [address] Urea nitrogen [Mass/Vol] 14 mg/dL Normal 6-23 [facility] Comment on above: Performed By: #### 2 4331-1 #### OMERO KNIGHT (78101) [facility] ([facility]) [facility] [place] [address] Albumin BCP dye [Mass/Vol] 2.6 g/dL Low 3.4 - 5.0 g/dL [place] Anion gap [Moles/Vol] 10 mmol/L 10 - 2 0 mmol/L [place] Calcium [Mass/Vol] 8.6 mg/dL 8.6 - 10. 6 mg/dL [place] Chloride [Moles/Vol] 95 mmol/L Low 98 - 10 7 mmol/L [place] CO2 [Moles/Vol] 33 mmol/L High 21 - 32 mmol/L [place] Creatinine [Mass/Vol] 0.80 mg/dL 0.50 - 1.05 mg/dL [place] GFR/1.73 sq M.predicted among non-blacks MDRD (S/P/Bld) [Vol rate/Area] 77 mL/min/{1.73_m2} - PINF [place] Glucose [Mass/Vol] 139 mg/dL High 74 - 99 mg/dL [place] Phosphate [Mass/Vol] 2.7 mg/dL 2.5 - 4 .9 mg/dL [place] Potassium [Moles/Vol] 3.0 mmol/L Low 3.5 - 5.3 mmol/L [place] Sodium [Moles/Vol] 135 mmol/L Low 136 - 145 mmol/L [place] Urea nitrogen [Mass/Vol] 15 mg/dL 6 - 23 mg/dL [place] Albumin BCP dye [Mass/Vol] 2.6 g/dL Low 3.4-5.0 [facility] Comment on above: Performed By: #### 2 4331-1 #### OMERO KNIGHT ([id number]) [facility] ([facility]) [address] [place] [address] 52405 Anion gap [Moles/Vol] 10 mmol/L Normal 10-20 [facility] Comment on above: Performed By: #### 2 4331-1 #### OMERO KNIGHT (66977) [facility] ([facility]) [address] [place] [address] 72388 Calcium [Mass/Vol] 8.6 mg/dL Normal 8.6-10.6 [facility] Comment on above: Performed By: #### 2 4331-1 #### OMERO KNIGHT (57717) [facility] ([facility]) [address] [place] [address] 26116 Chloride [Moles/Vol] 95 mmol/L Low 98-107 [facility] Comment on above: Performed By: #### 2 4331-1 #### OMERO KNIGHT (23891) [facility] ([facility]) [address] [place] [address] 85563 CO2 [Moles/Vol] 33 mmol/L High 21-32 [facility] Comment on above: Performed By: #### 2 4331-1 #### OMERO KNIGHT (35351) [facility] ([facility]) [address] [place] [address] 73388 Creatinine [Mass/Vol] 0.80 mg/dL Normal 0.50-1.05 [facility] Comment on above: Performed By: #### 2 4331-1 #### OMERO KNIGHT (76393) [facility] ([facility]) [address] [place] [address] 50249 Glomerular filtration rate/1.73 sq M.predicted 77 mL/min/1.73m*2 Normal >60 [facility] Comment on above: Result Comment: Calc ulations of estimated GFR are performed using the 2020 CKD-EPI Study Refit equation without the race variable for the IDMS-Traceable creatinine methods. https://jasn.asnjournals.org/content/early//ASN.21839 42935 Performed By: #### 2 4331-1 #### OMERO KNIGHT ([id number]) [facility] ([facility]) [address] [place] [address] 92163 Glucose [Mass/Vol] 139 mg/dL High 74-99 [facility] Comment on above: Performed By: #### 2 4331-1 #### OMERO KNIGHT (37840) [facility] ([facility]) [address] [place] [address] 39503 Phosphate [Mass/Vol] 2.7 mg/dL Normal 2.5-4.9 [facility] Comment on above: Result Comment: The performance characteristics of phosphorus testing in heparinized plasma have been validated by the individual laboratory site where testing is performed. Testing on heparinized plasma is not approved by the FDA; however, such approval is not necessary. Performed By: #### 2 4331-1 #### OMERO KNIGHT (60023) [facility] ([facility]) [address] [place] [address] 46616 Potassium [Moles/Vol] 3.0 mmol/L Low 3.5-5.3 [facility] Comment on above: Performed By: #### 2 4331-1 #### OMERO KNIGHT (16861) [facility] ([facility]) [address] [place] [address] 47034 Sodium [Moles/Vol] 135 mmol/L Low 136-145 [facility] Comment on above: Performed By: #### 2 4331-1 #### OMERO KNIGHT (71030) [facility] ([facility]) [address] [place] [address] 60037 Urea nitrogen [Mass/Vol] 15 mg/dL Normal 6-23 [facility] Comment on above: Performed By: #### 2 4331-1 #### OMERO KNIGHT (52968) [facility] ([facility]) [address] [place] [address] 41136 Glucose Test strip manual (B ld) [Mass/Vol]on 11-10-2023 Glucose [Mass/Vol] 142 mg/dL High 74 - 99 mg/dL [place] Interpretation and review of laboratory results Abnormal [facility] Glucose [Mass/Vol] 142 mg/dL High 74-99 [facility] Comment on above: Performed By: #### 2 4331-1 #### OMERO KNIGHT (74262) [facility] ([facility]) [address] [place] [address] 49666 Glucose [Mass/Vol] 116 mg/dL High 74 - 99 mg/dL [place] Interpretation and review of laboratory results Abnormal [facility] Glucose [Mass/Vol] 116 mg/dL High 74-99 [facility] Comment on above: Performed By: #### 2 4331-1 #### OMERO KNIGHT ([id number]) [facility] ([facility]) [address] [place] [address] 93972 Glucose [Mass/Vol] 159 mg/dL High 74 - 99 mg/dL [place] Interpretation and review of laboratory results Abnormal [facility] Glucose [Mass/Vol] 159 mg/dL High 74-99 [facility] Comment on above: Performed By: #### 2 4323-8 #### OMERO KNIGHT (48095) [facility] ([facility]) [address] [place] [address] 34178 Glucose [Mass/Vol] 170 mg/dL High 74 - 99 mg/dL [place] Interpretation and review of laboratory results Abnormal [facility] Glucose [Mass/Vol] 170 mg/dL High 74-99 [facility] Comment on above: Performed By: #### 2 4323-8 #### OMERO KNIGHT (47588) [facility] ([facility]) [address] [place] [address] 70927 Glucose [Mass/Vol] 132 mg/dL High 74 - 99 mg/dL [place] Interpretation and review of laboratory results Abnormal [facility] Glucose [Mass/Vol] 132 mg/dL High 74-99 [facility] Comment on above: Performed By: #### 2 4323-8 #### OMERO KNIGHT (93192) [facility] ([facility]) [address] [place], [place] [phone] Vancomycinon 11-10-2023 Vancomycin [Mass/Vol] 17.6 ug/mL 5.0 - 20.0 ug/mL [place] Vancomycin [Mass/Vol] 17.6 ug/mL Normal 5.0-20.0 [facility] Comment on above: Order Comment: Vanco [...] By: #### 2 4323-8 #### OMERO KNIGHT (04300) [facility] ([facility]) [address] [place], [place] [address] Vancomycin [Mass/Vol]on Interpretation and review of laboratory results Normal [facility] Bacteria identifiedon 2023 Bacteria identified Cx Nom (Bld) Test: Blood Culture Specimen Source: Peripheral Venipuncture Specimen Type: Blood culture Specimen Date: 11/09/2023 1110 Result Date: 11/13/2023 1300 Result Status: Final result Abnormal: No Resulting Lab: [facility] [address] [place] [address] CULTURE No growth at 4 days - FINAL REPORT Normal [facility] Comment on above: Performed By: #### 2 4323-8 #### JAMIL EUGENE ([id number]) [facility] ([facility]) [address] [place] [id number] CBC W Auto Differential pane l (Bld)on 11-09-2023 Basophils (Bld) [#/Vol] 0.05 10*3/uL [place] Basophils/100 WBC (Bld) 0.6 % 0.0 - 2.0 % [place] Eosinophils (Bld) [#/Vol] 0.16 10*3/uL [place] Eosinophils/100 WBC (Bld) 1.8 % 0.0 - 6.0 % [place] Erythrocyte distribution width (RBC) [Ratio] 15.2 % High 11.5 - 14.5 % [place] Hematocrit (Bld) [Volume fraction] 34.5 % Low 36.0 - 46.0 % [place] Hemoglobin (Bld) [Mass/Vol] 10.8 g/dL Low 12.0 - 16.0 g/dL [place] Immature granulocytes (Bld) [#/Vol] 0.05 10*3/uL [place] Immature granulocytes/100 WBC (Bld) 0.6 % 0.0 - 0.9 % [place] Interpretation and review of laboratory results Abnormal [place] Lymphocytes (Bld) [#/Vol] 3.08 10*3/uL High [place] Lymphocytes/100 WBC (Bld) 34.8 % 13.0 - 44.0 % [place] MCH (RBC) [Entitic mass] 26.5 pg 26.0 - 34.0 pg [place] MCHC (RBC) [Mass/Vol] 31.3 g/dL Low 32.0 - 36.0 g/dL [place] MCV (RBC) [Entitic vol] 85 fL 80 - 100 fL [place] Monocytes (Bld) [#/Vol] 0.67 10*3/uL [place] Monocytes/100 WBC (Bld) 7.6 % 2.0 - 10.0 % [place] Neutrophils (Bld) [#/Vol] 4.83 10*3/uL [place] Neutrophils/100 WBC (Bld) 54.6 % 40.0 - 80.0 % [place] Nucleated RBC/100 WBC (Bld) [Ratio] 0.0 % [place] Platelets (Bld) [#/Vol] 263 10*3/uL [place] RBC (Bld) [#/Vol] 4.08 10*6/uL [facility] WBC (Bld) [#/Vol] 8.8 10*3/uL [facility] Basophils (Bld) [#/Vol] 0.05 x10*3/uL Normal 0.00-0.10 [facility] Comment on above: Performed By: #### 1 9123-9 #### OMERO KNIGHT (32647) [facility] ([facility]) [address] [place] [address] 83741 Basophils/100 WBC (Bld) 0.6 % Normal 0.0-2.0 [facility] Comment on above: Performed By: #### 1 9123-9 #### OMERO KNIGHT (93526) [facility] ([facility]) [address] [place] [address] 23317 Eosinophils (Bld) [#/Vol] 0.16 x10*3/uL Normal 0.00-0.40 [facility] Comment on above: Performed By: #### 1 9123-9 #### OMERO KNIGHT (14105) [facility] ([facility]) [address] [place] [address] 94000 Eosinophils/100 WBC (Bld) 1.8 % Normal 0.0-6.0 [facility] Comment on above: Performed By: #### 1 9123-9 #### OMERO KNIGHT (38645) [facility] ([facility]) [address] [place] [address] 32218 Erythrocyte distribution width (RBC) [Ratio] 15.2 % High 11.5-14.5 [facility] Comment on above: Performed By: #### 1 9123-9 #### OMERO KNIGHT (15158) [facility] ([facility]) [address] [place] [address] Hematocrit (Bld) [Volume fraction] 34.5 % Low 36.0-46.0 [facility] Comment on above: Performed By: #### 1 9123-9 #### OMERO KNIGHT ([id number]) [facility] ([facility]) [address] [place] [address] Hemoglobin (Bld) [Mass/Vol] 10.8 g/dL Low 12.0-16.0 [facility] Comment on above: Performed By: #### 1 9123-9 #### OMERO KNIGHT ([id number]) [facility] ([facility]) [address] [place], [place] [id number] Immature granulocytes (Bld) [#/Vol] 0.05 x10*3/uL Normal 0.00-0.50 [facility] Comment on above: Performed By: #### 1 9123-9 #### OMERO KNIGHT ([id number]) [facility] ([facility]) [address] [place], [place] [id number] Immature granulocytes/100 WBC (Bld) 0.6 % Normal 0.0-0.9 [facility] Comment on above: Result Comment: Martina ture Granulocyte Count (IG) includes promyelocytes, myelocytes and metamyelocytes but does not include bands. Percent differential counts (%) should be interpreted in the context of the absolute cell counts (cells/UL). Performed By: #### 1 9123-9 #### OMERO KNIGHT ([id number]) [facility] ([facility]) [address] [place] [address] 92638 Lymphocytes (Bld) [#/Vol] 3.08 x10*3/uL High 0.80-3.00 [facility] Comment on above: Performed By: #### 1 9123-9 #### OMERO KNIGHT ([id number]) [facility] ([facility]) [address] [place] [address] 45123 Lymphocytes/100 WBC (Bld) 34.8 % Normal 13.0-44.0 [facility] Comment on above: Performed By: #### 1 9123-9 #### OMERO KNIGHT ([id number]) [facility] ([facility]) [address] [place] [address] 55212 MCH (RBC) [Entitic mass] 26.5 pg Normal 26.0-34.0 [facility] Comment on above: Performed By: #### 1 9123-9 #### OMERO KNIGHT ([id number]) [facility] ([facility]) [address] [place] [address] 04386 MCHC (RBC) [Mass/Vol] 31.3 g/dL Low 32.0-36.0 [facility] Comment on above: Performed By: #### 1 9123-9 #### OMERO KNIGHT ([id number]) [facility] ([facility]) [address] [place] [address] 36341 MCV (RBC) [Entitic vol] 85 fL Normal 80-100 [facility] Comment on above: Performed By: #### 1 9123-9 #### OMERO KNIGHT ([id number]) [facility] ([facility]) [address] [place] [address] 40787 Monocytes (Bld) [#/Vol] 0.67 x10*3/uL Normal 0.05-0.80 [facility] Comment on above: Performed By: #### 1 9123-9 #### OMERO KNIGHT ([id number]) [facility] ([facility]) [address] [place] [address] 51710 Monocytes/100 WBC (Bld) 7.6 % Normal 2.0-10.0 [facility] Comment on above: Performed By: #### 1 9123-9 #### OMERO KNIGHT ([id number]) [facility] ([facility]) [address] [place] [address] 67034 Neutrophils (Bld) [#/Vol] 4.83 x10*3/uL Normal 1.60-5.50 [facility] Comment on above: Result Comment: Perc ent differential counts (%) should be interpreted in the context of the absolute cell counts (cells/uL). Performed By: #### 1 9123-9 #### OMERO KNIGHT ([id number]) [facility] ([facility]) [address] [place] [address] 08237 Neutrophils/100 WBC (Bld) 54.6 % Normal 40.0-80.0 [facility] Comment on above: Performed By: #### 1 9123-9 #### OMERO KNIGHT (35902) [facility] ([facility]) [address] [place] [address] 93518 Nucleated RBC/100 WBC (Bld) [Ratio] 0.0 /100 WBCs Normal 0.0-0.0 [facility] Comment on above: Performed By: #### 1 9123-9 #### OMERO KNIGHT ([id number]) [facility] ([facility]) [address] [place] [address] 66119 Platelets (Bld) [#/Vol] 263 x10*3/uL Normal 150-450 [facility] Comment on above: Performed By: #### 1 9123-9 #### OMERO KNIGHT (30782) [facility] ([facility]) [address] [place] [address] 18104 RBC (Bld) [#/Vol] 4.08 x10*6/uL Normal 4.00-5.20 [facility] Comment on above: Performed By: #### 1 9123-9 #### OMERO KNIGHT ([id number]) [facility] ([facility]) [address] [place] [address] 81732 WBC (Bld) [#/Vol] 8.8 x10*3/uL Normal 4.4-11.3 [facility] Comment on above: Performed By: #### 1 9123-9 #### OMERO KNIGHT ([id number]) [facility] ([facility]) [address] [place] [address] GUIDED PERCUTANEOUS BIOPS Y BONE DEEPon 11-09-2023 CT GUIDED PERCUTANEOUS BIOPSY BONE DEEP Interpreted By: Caron Donaldson and Calo Sean-Matthew STUDY: CT-guided bone marrow biopsy; 11/13/2023 11:07 am INDICATION: Signs/Symptoms:Bone biopsy, 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 COMPARISON: MR thoracic spine and CT thoracic spine 11/06/2023. ACCESSION NUMBER(S): [id number] ORDERING CLINICIAN: RU SANTOS TECHNIQUE: INTERVENTIONALIST(S): MD Garett Chaudhari MD CONSENT: [...] the interventional CT scanner bed. An initial childbirth and infant care teacher image and axial noncontrast CT images of [...] Gatica MD. This study was interpreted at [place], [place]. MACRO: None Signed by: Caron Donaldson 11/14/2023 8:11 AM Dictation workstation: [id number] Normal [facility] Comment on above: Order Comment: Last xarelto dose was at [facility] on 11/07 at 9AM Comprehensive metabolic 2000 panelon 11-09-2023 Albumin BCP dye [Mass/Vol] 2.8 g/dL Low 3.4 - 5.0 g/dL [place] ALP [Catalytic activity/Vol] 134 U/L 33 - 136 U/L [place] ALT With P-5'-P [Catalytic activity/Vol] 12 U/L 7 - 45 U/L [place] Anion gap [Moles/Vol] 15 mmol/L 10 - 2 0 mmol/L [place] AST With P-5'-P [Catalytic activity/Vol] 22 U/L 9 - 39 U/L [place] Bilirubin [Mass/Vol] 0.4 mg/dL 0.0 - 1 .2 mg/dL [place] Calcium [Mass/Vol] 8.4 mg/dL Low 8.6 - 10. 6 mg/dL [place] Chloride [Moles/Vol] 96 mmol/L Low 98 - 10 7 mmol/L [place] CO2 [Moles/Vol] 25 mmol/L 21 - 32 mmol/L [place] Creatinine [Mass/Vol] 0.80 mg/dL 0.50 - 1.05 mg/dL [place] GFR/1.73 sq M.predicted among non-blacks MDRD (S/P/Bld) [Vol rate/Area] 77 mL/min/{1.73_m2} - PINF [place] Glucose [Mass/Vol] 115 mg/dL High 74 - 99 mg/dL [place] Potassium [Moles/Vol] 3.7 mmol/L 3.5 - 5.3 mmol/L [place] Protein [Mass/Vol] 5.8 g/dL Low 6.4 - 8.2 g/dL [place] Sodium [Moles/Vol] 132 mmol/L Low 136 - 145 mmol/L [place] Urea nitrogen [Mass/Vol] 14 mg/dL 6 - 23 mg/dL [place] Albumin BCP dye [Mass/Vol] 2.8 g/dL Low 3.4-5.0 [facility] Comment on above: Performed By: #### 1 9123-9 #### OMERO KNIGHT ([id number]) [facility] ([facility]) [address] [place] [address] ALP [Catalytic activity/Vol] 134 U/L Normal 33-136 [facility] Comment on above: Performed By: #### 1 9123-9 #### OMERO KNIGHT ([id number]) [facility] ([facility]) [address] [place] [address] ALT With P-5'-P [Catalytic activity/Vol] 12 U/L Normal 7-45 [facility] Comment on above: Result Comment: Madhavi ents treated with Sulfasalazine may generate falsely decreased results for ALT. Performed By: #### 1 9123-9 #### OMERO KNIGHT ([id number]) [facility] ([facility]) [facility] [place] [address] Anion gap [Moles/Vol] 15 mmol/L Normal 10-20 [facility] Comment on above: Performed By: #### 1 9123-9 #### OMERO KNIGHT ([id number]) [facility] ([facility]) [address] [place] [address] 33607 AST With P-5'-P [Catalytic activity/Vol] 22 U/L Normal 9-39 [facility] Comment on above: Performed By: #### 1 9123-9 #### OMERO KNIGHT ([id number]) [facility] ([facility]) [address] [place] [address] Bilirubin [Mass/Vol] 0.4 mg/dL Normal 0.0-1.2 [facility] Comment on above: Performed By: #### 1 9123-9 #### OMERO KNIGHT ([id number]) [facility] ([facility]) [address] [place] [address] 30593 Calcium [Mass/Vol] 8.4 mg/dL Low 8.6-10.6 [facility] Comment on above: Performed By: #### 1 9123-9 #### OMERO KNIGHT ([id number]) [facility] ([facility]) [address] [place] [address] 54355 Chloride [Moles/Vol] 96 mmol/L Low 98-107 [facility] Comment on above: Performed By: #### 1 9123-9 #### OMERO KNIGHT ([id number]) [facility] ([facility]) [address] [place] [address] CO2 [Moles/Vol] 25 mmol/L Normal 21-32 [facility] Comment on above: Performed By: #### 1 9123-9 #### OMERO KNIGHT (79287) [facility] ([facility]) [facility] [place] [address] Creatinine [Mass/Vol] 0.80 mg/dL Normal 0.50-1.05 [facility] Comment on above: Performed By: #### 1 9123-9 #### OMERO KNIGHT (94914) [facility] ([facility]) [address] [place] [address] 11225 Glomerular filtration rate/1.73 sq M.predicted 77 mL/min/1.73m*2 Normal >60 [facility] Comment on above: Result Comment: Calc ulations of estimated GFR are performed using the 2020 CKD-EPI Study Refit equation without the race variable for the IDMS-Traceable creatinine methods. https://jasn.asnjournals.org/content/early//ASN.95766 72036 Performed By: #### 1 9123-9 #### OMERO KNIGHT ([id number]) [facility] ([facility]) [address] [place] [address] 18610 Glucose [Mass/Vol] 115 mg/dL High 74-99 [facility] Comment on above: Performed By: #### 1 9123-9 #### OMERO KNIGHT ([id number]) [facility] ([facility]) [address] [place] [address] 46880 Potassium [Moles/Vol] 3.7 mmol/L Normal 3.5-5.3 [facility] Comment on above: Performed By: #### 1 9123-9 #### OMERO KNIGHT (67709) [facility] ([facility]) [address] [place] [address] 25966 Protein [Mass/Vol] 5.8 g/dL Low 6.4-8.2 [facility] Comment on above: Performed By: #### 1 9123-9 #### OMERO KNIGHT ([id number]) [facility] ([facility]) [address] [place] [address] 71089 Sodium [Moles/Vol] 132 mmol/L Low 136-145 [facility] Comment on above: Performed By: #### 1 9123-9 #### OMERO KNIGHT ([id number]) [facility] ([facility]) [address] [place] [address] 11648 Urea nitrogen [Mass/Vol] 14 mg/dL Normal 6-23 [facility] Comment on above: Performed By: #### 1 9123-9 #### OMERO KNIGHT ([id number]) [facility] ([facility]) [address] [place] [address] 56591 ECG 12-LEADon 11-09-2023 ECG 12-LEAD Ventricular Rate 73 Atrial Rate 73 P-R Interval 196 QRS Duration 106 Q-T Interval 384 QTC Calculation(Bazett) 423 P [place] -24 R [place] -46 T [place] -41 QRS Count 12 Q Onset 205 P Onset 107 P Offset 148 T Offset 397 QTC Fredericia 410 Diagnosis Atrial fibrillation Left axis deviation Low voltage QRS Cannot rule out Anterior infarct , age undetermined Abnormal ECG Confirmed by Fabio Bee ([id number]) on 11/15/2023 2:34:28 PM Normal [facility] Glucose Test strip manual (B ld) [Mass/Vol]on 11-09-2023 Glucose [Mass/Vol] 140 mg/dL High 74 - 99 mg/dL [place] Interpretation and review of laboratory results Abnormal [facility] Glucose [Mass/Vol] 140 mg/dL High 74-99 [facility] Comment on above: Performed By: #### 2 4322-8 #### OMERO KNIGHT ([id number]) [facility] ([facility]) [address] [place] [address] 88844 Glucose [Mass/Vol] 118 mg/dL High 74 - 99 mg/dL [place] Interpretation and review of laboratory results Abnormal [facility] Glucose [Mass/Vol] 118 mg/dL High 74-99 [facility] Comment on above: Performed By: #### 2 4322-8 #### OMERO KNIGHT (51239) [facility] ([facility]) [address] [place] [address] 14971 Glucose [Mass/Vol] 120 mg/dL High 74 - 99 mg/dL [place] Interpretation and review of laboratory results Abnormal [facility] Glucose [Mass/Vol] 120 mg/dL High 74-99 [facility] Comment on above: Performed By: #### 2 4322-8 #### OMERO KNIGHT (22233) [facility] ([facility]) [address] [place] [address] 55608 Glucose [Mass/Vol] 142 mg/dL High 74 - 99 mg/dL [place] Interpretation and review of laboratory results Abnormal [facility] Glucose [Mass/Vol] 142 mg/dL High 74-99 [facility] Comment on above: Performed By: #### 2 432-8 #### OMERO KNIGHT ([id number]) [facility] ([facility]) [address] [place] [address] Glucose [Mass/Vol] 139 mg/dL High 74 - 99 mg/dL [place] Interpretation and review of laboratory results Abnormal [facility] Glucose [Mass/Vol] 139 mg/dL High 74-99 [facility] Comment on above: Performed By: #### 1 9123-9 #### OMERO KNIGHT ([id number]) [facility] ([facility]) [address] [place] [phone] Magnesiumon 11-09-2023 Magnesium [Mass/Vol] 1.30 mg/dL Low 1.60 - 2.40 mg/dL [place] Magnesium [Mass/Vol] 1.30 mg/dL Low 1.60-2.40 [facility] Comment on above: Performed By: #### 1 9123-9 #### OMERO KNIGHT ([id number]) [facility] ([facility]) [address] [place] [address] No Panel Informationon 11-08 Interpretation and review of laboratory results Abnormal [facility] Urinalysis complete panel (U )on 11-09-2023 Appearance (U) Clear Clear [place] Bilirubin (U) [Mass/Vol] Negative NEGATIVE [place] Color (U) Light-Yellow Light-Yellow , Yellow, Dark-Yellow [place] Glucose Auto test strip (U) [Mass/Vol] Normal Normal mg/dL [place] Interpretation and review of laboratory results Normal [place] Ketones (U) [Mass/Vol] Negative NEGAT JORGE mg/dL [place] Leukocyte esterase Auto test strip Ql (U) Negative NEGATIVE [facility] Nitrite Auto test strip Ql (U) Negative NEGATIVE [place] pH (U) 5.5 [pH] 5.0, 5.5, 6.0, 6.5, 7.0, 7.5, 8.0 [place] Protein (U) [Mass/Vol] Negative NEGAT JORGE, 10 (TRACE), 20 (TRACE) mg/dL [place] RBC (U) [#/Vol] Negative NEGATIVE [facility] Specific gravity (U) [Rel density] 1.011 1.005 - 1.035 [place] Urobilinogen (U) [Mass/Vol] Normal Normal mg/dL [facility] Appearance (U) Clear Normal Clear [facility] Comment on above: Performed By: #### 1 9123-9 #### OMERO KNIGHT ([id number]) [facility] ([facility]) [address] [place] [address] 30391 Bilirubin (U) [Mass/Vol] Negative Normal NEGATIVE [facility] Comment on above: Performed By: #### 1 9123-9 #### OMERO KNIGHT (23505) [facility] ([facility]) [address] [place] [address] 70942 Color (U) Light-Yellow Normal Light-Yellow , Yellow, Dark-Yellow [facility] Comment on above: Performed By: #### 1 9123-9 #### OMERO KNIGHT (12442) [facility] ([facility]) [address] [place] [address] 44377 Glucose Auto test strip (U) [Mass/Vol] Normal Normal Normal [facility] Comment on above: Performed By: #### 1 9123-9 #### OMERO KNIGHT ([id number]) [facility] ([facility]) [address] [place] [address] 23464 Ketones (U) [Mass/Vol] Negative Normal [facility]: Performed By: #### 1 9123-9 #### OMERO KNIGHT ([id number]) [facility] ([facility]) [address] [place] [address] 08138 Leukocyte esterase Auto test strip Ql (U) Negative Normal NEGATIVE [facility] Comment on above: Performed By: #### 1 9123-9 #### OMERO KNIGHT (47538) [facility] ([facility]) [address] [place] [address] 84710 Nitrite Auto test strip Ql (U) Negative Normal NEGATIVE [facility] Comment on above: Performed By: #### 1 9123-9 #### OMERO KNIGHT (88708) [facility] ([facility]) [address] [place] [address] 82929 pH (U) 5.5 [pH] Normal 5.0, 5.5, 6.0, 6.5, 7.0, 7.5, 8.0 [facility] Comment on above: Performed By: #### 1 9123-9 #### OMERO KNIGHT (30160) [facility] ([facility]) [address] [place] [address] 31658 Protein (U) [Mass/Vol] Negative Normal NEGAT JORGE, 10 (TRACE), 20 (TRACE) [facility] Comment on above: Performed By: #### 1 9123-9 #### OMERO KNIGHT (51443) [facility] ([facility]) [address] [place] [address] RBC (U) [#/Vol] Negative Normal NEGATIVE [facility] Comment on above: Performed By: #### 1 9123-9 #### OMERO KNIGHT ([id number]) [facility] ([facility]) [address] [place] [address] Specific gravity (U) [Rel density] 1.011 Normal 1.005-1.035 [facility] Comment on above: Performed By: #### 1 9123-9 #### OMERO KNIGHT (34682) [facility] ([facility]) [address] [place] [address] 78864 Urobilinogen (U) [Mass/Vol] Normal Normal Normal [facility] Comment on above: Performed By: #### 1 9123-9 #### OMERO KNIGHT (55678) [facility] ([facility]) [address] [place] [address] 23018 C reactive proteinon 024 CRP [Mass/Vol] 4.29 mg/dL High <1.00 [facility] Comment on above: Performed By: #### 1 988-5 ####OMERO KNIGHT (07403)[facility] ([facility])[address] [place], [place] [phone] CBC panel Auto (Bld)on 11-07 Erythrocyte distribution width (RBC) [Ratio] 15.3 % High 11.5-14.5 [facility] Comment on above: Performed By: #### 5 8410-2 ####OMERO KNIGHT ([id number])[facility] ([facility])[address] [place] [address] 85830 Hematocrit (Bld) [Volume fraction] 33.3 % Low 36.0-46.0 [facility] Comment on above: Performed By: #### 5 8410-2 ####OMERO KNIGHT (20860)[facility] ([facility])[address] [place] [address] 18882 Hemoglobin (Bld) [Mass/Vol] 10.3 g/dL Low 12.0-16.0 [facility] Comment on above: Performed By: #### 5 8410-2 ####OMERO KNIGHT (45956)[facility] ([facility])[address] [place] [address] 23107 MCH (RBC) [Entitic mass] 26.5 pg Normal 26.0-34.0 [facility] Comment on above: Performed By: #### 5 8410-2 ####OMERO KNIGHT ([id number])[facility] ([facility])[address] [place] [address] 17562 MCHC (RBC) [Mass/Vol] 30.9 g/dL Low 32.0-36.0 [facility] [place] [facility] Comment on above: Performed By: #### 5 8410-2 ####OMERO KNIGHT (66799)[facility] ([facility])[address] [place] [address] 42734 MCV (RBC) [Entitic vol] 86 fL Normal 80-100 [facility] Comment on above: Performed By: #### 5 8410-2 ####OMERO KNIGHT (81031)[facility] ([facility])[address] [place] [address] 10625 Nucleated RBC/100 WBC (Bld) [Ratio] 0.0 /100 WBCs Normal 0.0-0.0 [facility] Comment on above: Performed By: #### 5 8410-2 ####OMERO KNIGHT (25988)[facility] ([facility])[address] [place] [address] 95214 Platelets (Bld) [#/Vol] 228 x10*3/uL Normal 150-450 [facility] Comment on above: Performed By: #### 5 8410-2 ####OMERO KNIGHT (61101)[facility] ([facility])[address] [place] [address] 03673 RBC (Bld) [#/Vol] 3.88 x10*6/uL Low 4.00-5.20 [facility] Comment on above: Performed By: #### 5 8410-2 ####OMERO KNIGHT (16096)[facility] ([facility])[address] [place] [address] 93273 WBC (Bld) [#/Vol] 7.8 x10*3/uL Normal 4.4-11.3 [facility] Comment on above: Performed By: #### 5 8410-2 ####OEMRO KNIGHT (44496)[facility] ([facility])[address] [place] [address] 76318 Creatinineon 11-08-2023 Creatinine [Mass/Vol] 0.87 mg/dL Normal 0.50-1.05 [facility] [place] [facility] Comment on above: Performed By: #### 2 160-0 ####OMERO KNIGHT (61213)[facility] ([facility])[address] [place] [address] 15431 Creatinine [Mass/Vol]on Glomerular filtration rate/1.73 sq M.predicted 70 mL/min/1.73m*2 Normal >60 [facility] Comment on above: Result Comment: Calc ulations of estimated GFR are performed using the 2020 CKD-EPI Study Refit equation without the race variable for the IDMS-Traceable creatinine methods. https://jasn.asnjournals.org/content//ASN34376 13447 Performed By: #### 2 160-0 ####OMERO KNIGHT (01805)[facility] ([facility])[address] [place] [address] 74910 Glucose Test strip manual (B ld) [Mass/Vol]on 11-08-2023 Glucose [Mass/Vol] 140 mg/dL High 74-99 [facility] Comment on above: Performed By: #### 2 341-6 ####OMERO KNIGHT (91039)[facility] ([facility])[address] [place] [address] 86129 Glucose [Mass/Vol] 111 mg/dL High 74-99 [facility] Comment on above: Performed By: #### 2 341-6 ####OMERO KNIGHT (39658)[facility] ([facility])[address] [place] [address] 98352 Glucose [Mass/Vol] 130 mg/dL High 74-99 [facility] Comment on above: Performed By: #### 2 341-6 ####OMERO KNIGHT (51676)[facility] ([facility])[address] [place] [address] 18361 Glucose [Mass/Vol] 109 mg/dL High [address] Comment on above: Performed By: #### 2 341-6 ####OMERO KNIGHT (88555)[facility] ([facility])[address] [place] [address] 16016 Natriuretic peptide B [Mass/ Vol]on 11-08-2023 Natriuretic peptide B (Bld) [Mass/Vol] 484 pg/mL High 0-99 [facility] Comment on above: Order Comment: <100 pg/mL - Heart failure [id number] pg/mL - Intermediate probability of acute heart failure exacerbation. Correlate with clinical context and patient history. >=300 pg/mL - Heart Failure likely. Correlate with clinical context and patient history.BNP testing is performed using different testing methodology at [facility] than at other [facility]. Direct result comparisons should only be made within the same method. Performed By: #### 3 0934-4 ####OMERO KNIGHT ([id number])[facility] ([facility] [place] [address] Vancomycinon 11-08-2023 Vancomycin [Mass/Vol] 20.3 ug/mL High 5.0-20.0 [facility] [place] [facility] Comment on [...] Performed By: #### 2 0578-1 ####OMERO KNIGHT ([id number])[facility] ([facility])[address] [place] [address] Basic metabolic 2000 panelon 11-07-2023 Anion gap [Moles/Vol] 10 mmol/L Normal 10-20 [facility] [place] [facility] Comment on above: Performed By: #### 3 0934-4 #### OMERO KNIGHT (83264) [facility] ([facility]) [address] [place] [address] 88693 Calcium [Mass/Vol] 8.1 mg/dL Low 8.6-10.3 [facility] Comment on above: Performed By: #### 3 0934-4 #### OMERO KNIGHT ([id number]) [facility] ([facility]) [facility] [place] [address] Chloride [Moles/Vol] 100 mmol/L Normal 98-107 [facility] Comment on above: Performed By: #### 3 0934-4 #### OMERO KNIGHT ([id number]) [facility] ([facility]) [facility] [place] [address] CO2 [Moles/Vol] 26 mmol/L Normal 21-32 [facility] Comment on above: Performed By: #### 3 0934-4 #### OMERO KNIGHT ([id number]) [facility] ([facility]) [facility] [place] [address] Creatinine [Mass/Vol] 0.92 mg/dL Normal 0.50-1.05 [facility] Comment on above: Performed By: #### 3 0934-4 #### OMERO KNIGHT ([id number]) [facility] ([facility]) [address] [place] [id number] Glomerular filtration rate/1.73 sq M.predicted 65 mL/min/1.73m*2 Normal >60 [facility] Comment on above: Result Comment: Calc ulations of estimated GFR are performed using the 2020 CKD-EPI Study Refit equation without the race variable for the IDMS-Traceable creatinine methods. https://jasn.asnjournals.org/content/early//ASN.83277 62647 Performed By: #### 3 0934-4 #### MOERO KNIGHT ([id number]) [facility] ([facility]) [address] [place] [address] 40948 Glucose [Mass/Vol] 116 mg/dL High 74-99 [facility] Comment on above: Performed By: #### 3 0934-4 #### OMERO KNIGHT ([id number]) [facility] ([facility]) [address] [place] [address] 18970 Potassium [Moles/Vol] 3.4 mmol/L Low 3.5-5.3 [facility] Comment on above: Performed By: #### 3 0934-4 #### OMERO KNIGHT ([id number]) [facility] ([facility]) [address] [place] [address] 07020 Sodium [Moles/Vol] 133 mmol/L Low 136-145 [facility] Comment on above: Performed By: #### 3 0934-4 #### OMERO KNIGHT ([id number]) [facility] ([facility]) [address] [place] [address] 03983 Urea nitrogen [Mass/Vol] 21 mg/dL Normal 6-23 [facility] Comment on above: Performed By: #### 3 34-4 #### OMERO KNIGHT ([id number]) [facility] ([facility]) [address] [place] [address] CBC panel Auto (Bld)on 11-06 Erythrocyte distribution width (RBC) [Ratio] 15.6 % High 11.5-14.5 [facility] Comment on above: Performed By: #### 3 34-4 #### OMERO KNIGHT ([id number]) [facility] ([facility]) [address] [place] [address] Hematocrit (Bld) [Volume fraction] 32.4 % Low 36.0-46.0 [facility] Comment on above: Performed By: #### 3 34-4 #### OMERO KNIGHT ([id number]) [facility] ([facility]) [address] [place] [address] Hemoglobin (Bld) [Mass/Vol] 9.9 g/dL Low 12.0-16.0 [facility] Comment on above: Performed By: #### 3 34-4 #### OMERO KNIGHT ([id number]) [facility] ([facility]) [address] [place], [place] [address] MCH (RBC) [Entitic mass] 26.6 pg Normal 26.0-34.0 [facility] Comment on above: Performed By: #### 3 34-4 #### OMERO KNIGHT ([id number]) [facility] ([facility]) [address] [place], [place] [address] MCHC (RBC) [Mass/Vol] 30.6 g/dL Low 32.0-36.0 [facility] Comment on above: Performed By: #### 3 34-4 #### OMERO KNIGHT ([id number]) [facility] ([facility]) [address] [place] [address] 07668 MCV (RBC) [Entitic vol] 87 fL Normal 80-100 [facility] Comment on above: Performed By: #### 3 34-4 #### OMERO KNIGHT ([id number]) [facility] ([facility]) [address] [place] [address] 39317 Nucleated RBC/100 WBC (Bld) [Ratio] 0.0 /100 WBCs Normal 0.0-0.0 [facility] Comment on above: Performed By: #### 3 34-4 #### OMERO KNIGHT ([id number]) [facility] ([facility]) [address] [place] [address] 77944 Platelets (Bld) [#/Vol] 246 x10*3/uL Normal 150-450 [facility] Comment on above: Performed By: #### 3 34-4 #### OMERO KNIGHT ([id number]) [facility] ([facility]) [address] [place] [address] 25690 RBC (Bld) [#/Vol] 3.72 x10*6/uL Low 4.00-5.20 [facility] Comment on above: Performed By: #### 3 34-4 #### OMERO KNIGHT ([id number]) [facility] ([facility]) [address] [place] [address] 81028 WBC (Bld) [#/Vol] 7.8 x10*3/uL Normal 4.4-11.3 [facility] Comment on above: Performed By: #### 3 34-4 #### OMERO KNIGHT ([id number]) [facility] ([facility]) [address] [place] [address] 08946 Glucose Test strip manual (B ld) [Mass/Vol]on 11-07-2023 Glucose [Mass/Vol] 124 mg/dL High 74-99 [facility] Comment on above: Performed By: #### 3 34-4 #### OMERO KNIGHT ([id number]) [facility] ([facility]) [address] [place] [address] 99804 Glucose [Mass/Vol] 108 mg/dL High 74-99 [facility] Comment on above: Performed By: #### 3 34-4 #### OMERO KNIGHT ([id number]) [facility] ([facility]) [address] [place] [address] Glucose [Mass/Vol] 134 mg/dL High 74-99 [facility] Comment on above: Performed By: #### 3 0934-4 #### OMERO KNIGHT ([id number]) [facility] ([facility]) [facility] [place] [address] Glucose [Mass/Vol] 104 mg/dL High 74-99 [facility] Comment on above: Result Comment: RN/M D NOTIFIED Performed By: #### 3 0934-4 #### OMERO KNIGHT ([id number]) [facility] ([facility]) [address] [place] [address] 13216 Vancomycinon 11-07-2023 Vancomycin [Mass/Vol] 8.5 ug/mL Normal 5.0-20.0 [facility] Comment on above: Order Comment: <100 pg/mL - Heart failure unlikely 100-299 pg/mL - Intermediate probability of acute heart failure exacerbation. Correlate with clinical context and patient history. >=300 pg/mL - Heart Failure likely. Correlate with clinical context and patient history. BNP testing is performed using different testing methodology at [facility] than at [facility]. Direct result comparisons should only be made within the same method. Performed By: #### 3 0934-4 #### OMERO KNIGHT ([id number]) [facility] ([facility]) [address] [place] [address] 20167 Bacteria identifiedon 2023 Bacteria identified Cx Nom (Bld) Test: Blood Culture Specimen Source: Peripheral Venipuncture Specimen Type: Blood culture Specimen Date: 11/06/2023 07 Result Date: 11/10/2023 1201 Result Status: Final result Abnormal: No Resulting Lab: [facility] [address] [facility] [address] CULTURE No growth at 4 days - FINAL REPORT [facility] Comment on above: Performed By: #### 2 4321-2 ###Chuyita KNIGHT ([id number]) [facility] ([facility]) [address] [place] [address] Bacteria identified Cx Nom (Bld) Test: Blood Culture Specimen Source: Peripheral Venipuncture Specimen Type: Blood culture Specimen Date: 11/06/202316 Result Date: 11/10/2023 1201 Result Status: Final result Abnormal: No Resulting Lab: [facility] [address] [place] [address] CULTURE No growth at 4 days - FINAL REPORT Normal [facility] Comment on above: Performed By: #### 2 4321-2 #### OMERO KNIGHT ([id number]) [facility] ([facility]) [address] [place] [address] Bacteria identified Cx Nom (U) Test: Urine Culture Specimen Source: Clean Catch/Voided Specimen Type: Urine Specimen Date: 11/06/2023 05 Result Date: 11/07/2023 0836 Result Status: Final result Abnormal: Yes Resulting Lab: [facility] [id number] [place] [address] CULTURE Multiple organisms present, probable contamination. Repeat culture if clinically indicated. (Abnormal) Abnormal [facility] Comment on above: Performed By: #### 3 0934-4 #### OMERO KNIGHT ([id number]) [facility] ([facility]) [address] [place] [address] CBC W Auto Differential pane l (Bld)on 11-06-2023 Basophils (Bld) [#/Vol] 0.04 x10*3/uL Normal 0.00-0.10 [facility] Comment on above: Performed By: #### 8 9577-1 #### OMERO KNIGHT ([id number]) [facility] ([facility]) [address] [place] [address] Basophils/100 WBC (Bld) 0.4 % Normal 0.0-2.0 [facility] Comment on above: Performed By: #### 8 9577-1 #### OMERO KNIGHT ([id number]) [facility] ([facility]) [address] [place], [place] [address] Eosinophils (Bld) [#/Vol] 0.09 x10*3/uL Normal 0.00-0.40 [facility] Comment on above: Performed By: #### 8 9577-1 #### OMERO KNIGHT ([id number]) [facility] ([facility]) [address] [place], [place] [address] Eosinophils/100 WBC (Bld) 0.8 % Normal 0.0-6.0 [facility] Comment on above: Performed By: #### 8 9577-1 #### OMERO KNIGHT (69926) [facility] ([facility]) [address] [place] [address] Erythrocyte distribution width (RBC) [Ratio] 15.3 % High 11.5-14.5 [facility] Comment on above: Performed By: #### 8 9577-1 #### OMERO KNIGHT ([id number]) [facility] ([facility]) [address] [place] [address] Hematocrit (Bld) [Volume fraction] 37.0 % Normal 36.0-46.0 [facility] Comment on above: Performed By: #### 8 9577-1 #### OMERO KNIGHT (50593) [facility] ([facility]) [address] [place] [address] Hemoglobin (Bld) [Mass/Vol] 11.6 g/dL Low 12.0-16.0 [facility] Comment on above: Performed By: #### 8 9577-1 #### OMERO KNIGHT (05385) [facility] ([facility]) [address] [place], [place] [address] Immature granulocytes (Bld) [#/Vol] 0.06 x10*3/uL Normal 0.00-0.50 [facility] Comment on above: Performed By: #### 8 9577-1 #### OMERO KNIGHT ([id number]) [facility] ([facility]) [address] [place] [address] Immature granulocytes/100 WBC (Bld) 0.6 % Normal 0.0-0.9 [facility] Comment on above: Result Comment: Martina ture Granulocyte Count (IG) includes promyelocytes, myelocytes and metamyelocytes but does not include bands. Percent differential counts (%) should be interpreted in the context of the absolute cell counts (cells/UL). Performed By: #### 8 9577-1 #### OMERO KNIGHT ([id number]) [facility] ([facility]) [address] [place] [address] Lymphocytes (Bld) [#/Vol] 3.12 x10*3/uL High 0.80-3.00 [facility] Comment on above: Performed By: #### 8 9577-1 #### OMERO KNIGHT ([id number]) [facility] ([facility]) [address] [place] [address] Lymphocytes/100 WBC (Bld) 28.8 % Normal 13.0-44.0 [facility] Comment on above: Performed By: #### 8 9577-1 #### OMERO KNIGHT (47686) [facility] ([facility]) [address] [place] [address] MCH (RBC) [Entitic mass] 26.4 pg Normal 26.0-34.0 [facility] Comment on above: Performed By: #### 8 9577-1 #### OMERO KNIGHT ([id number]) [facility] ([facility]) [address] [place], [place] [address] MCHC (RBC) [Mass/Vol] 31.4 g/dL Low 32.0-36.0 [facility] Comment on above: Performed By: #### 8 9577-1 #### OMERO KNIGHT ([id number]) [facility] ([facility]) [address] [place] [address] 80447 MCV (RBC) [Entitic vol] 84 fL Normal 80-100 [facility] Comment on above: Performed By: #### 8 9577-1 #### OMERO KNIGHT ([id number]) [facility] ([facility]) [address] [place] [address] 82037 Monocytes (Bld) [#/Vol] 1.02 x10*3/uL High 0.05-0.80 [facility] Comment on above: Performed By: #### 8 9577-1 #### OMERO KNIGHT (69299) [facility] ([facility]) [address] [place] [address] 30484 Monocytes/100 WBC (Bld) 9.4 % Normal 2.0-10.0 [facility] Comment on above: Performed By: #### 8 9577-1 #### OMERO KNIGHT ([id number]) [facility] ([facility]) [address] [place] [address] 49133 Neutrophils (Bld) [#/Vol] 6.51 x10*3/uL High 1.60-5.50 [facility] Comment on above: Result Comment: Perc ent differential counts (%) should be interpreted in the context of the absolute cell counts (cells/uL). Performed By: #### 8 9577-1 #### OMERO KNIGHT ([id number]) [facility] ([facility]) [address] [place] [address] 59452 Neutrophils/100 WBC (Bld) 60.0 % Normal 40.0-80.0 [facility] Comment on above: Performed By: #### 8 9577-1 #### OMERO KNIGHT ([id number]) [facility] ([facility]) [address] [place] [address] 78797 Nucleated RBC/100 WBC (Bld) [Ratio] 0.0 /100 WBCs Normal 0.0-0.0 [facility] Comment on above: Performed By: #### 8 9577-1 #### OMERO KNIGHT ([id number]) [facility] ([facility]) [address] [place] [address] 23540 Platelets (Bld) [#/Vol] 353 x10*3/uL Normal 150-450 [facility] Comment on above: Performed By: #### 8 9577-1 #### OMERO KNIGHT ([id number]) [facility] ([facility]) [facility] [place] [address] RBC (Bld) [#/Vol] 4.40 x10*6/uL Normal 4.00-5.20 [facility] Comment on above: Performed By: #### 8 9577-1 #### OMERO KNIGHT ([id number]) [facility] ([facility]) [facility] [place] [address] WBC (Bld) [#/Vol] 10.8 x10*3/uL Normal 4.4-11.3 [facility] Comment on above: Performed By: #### 8 9577-1 #### OMERO KNIGHT ([id number]) [facility] ([facility]) [address] [place] [address] CT CHEST ABDOMEN PELVIS WO C ONTRASTon 11-06-2023 CT CHEST ABDOMEN PELVIS WO CONTRAST STUDY: CT Chest, Abdomen, and Pelvis without IV Contrast; 11/06/2023, 804 INDICATION: Abnormal thoracic spine CT. COMPARISON: CT thoracic 11/06/2023, XR chest 10/09/2023, CT abd 01/05/2020. ACCESSION NUMBER(S): [id number] ORDERING CLINICIAN: VERA HUANG TECHNIQUE: CT of [...] uterine fibroids. Signed by Mychal Chavez MD [facility] CT THORACIC SPINE WO IV CONT Hay 11-06-2023 CT THORACIC SPINE WO IV CONTRAST STUDY: CT Thoracic Spine without IV Contrast; 11/06/2023 at 5:45 AM. INDICATION: Thoracic back pain. COMPARISON: None available. ACCESSION NUMBER(S): [id number] ORDERING CLINICIAN: SKINNY STEEL TECHNIQUE: CT of [...] for infl (more content not included)... Normal [facility] Comprehensive metabolic 2000 panelon 11-06-2023 Albumin BCP dye [Mass/Vol] 3.3 g/dL Low 3.4-5.0 [facility] Comment on above: Performed By: #### 2 4321-2 #### JAMIL EUGENE ([id number]) [facility] ([facility]) [address] [place] [address] ALP [Catalytic activity/Vol] 133 U/L Normal 33-136 [facility] Comment on above: Performed By: #### 2 4321-2 #### OMERO KNIGHT ([id number]) [facility] ([facility]) [address] [place] [address] ALT With P-5'-P [Catalytic activity/Vol] 10 U/L Normal 7-45 [facility] Comment on above: Result Comment: Madhavi ents treated with Sulfasalazine may generate falsely decreased results for ALT. Performed By: #### 2 4321-2 #### OMERO KNIGHT ([id number]) [facility] ([facility]) [address] [place] [address] Anion gap [Moles/Vol] 15 mmol/L Normal 10-20 [facility] Comment on above: Performed By: #### 2 4321-2 #### OMERO KNIGHT ([id number]) [facility] ([facility]) [address] [place] [address] AST With P-5'-P [Catalytic activity/Vol] 14 U/L Normal 9-39 [facility] Comment on above: Performed By: #### 2 4321-2 #### OMERO KNIGHT ([id number]) [facility] ([facility]) [address] [place] [address] Bilirubin [Mass/Vol] 0.5 mg/dL Normal 0.0-1.2 [facility] Comment on above: Performed By: #### 2 4321-2 #### OMERO KNIGHT (86995) [facility] ([facility]) [facility] [place] [address] Calcium [Mass/Vol] 9.2 mg/dL Normal 8.6-10.3 [facility] Comment on above: Performed By: #### 2 4321-2 #### OMERO KNIGHT ([id number]) [facility] ([facility]) [address] [place] [address] 78574 Chloride [Moles/Vol] 96 mmol/L Low 98-107 [facility] Comment on above: Performed By: #### 2 4321-2 #### OMERO KNIGHT ([id number]) [facility] ([facility]) [address] [place] [address] CO2 [Moles/Vol] 26 mmol/L Normal 21-32 [facility] Comment on above: Performed By: #### 2 4321-2 #### OMERO KNIGHT ([id number]) [facility] ([facility]) [facility] [place] [address] Creatinine [Mass/Vol] 1.12 mg/dL High 0.50-1.05 [facility] Comment on above: Performed By: #### 2 4321-2 #### OMERO KNIGHT ([id number]) [facility] ([facility]) [address] [place] [address] 28246 Glomerular filtration rate/1.73 sq M.predicted 51 mL/min/1.73m*2 Low >60 [facility] Comment on above: Result Comment: Calc ulations of estimated GFR are performed using the 2020 CKD-EPI Study Refit equation without the race variable for the IDMS-Traceable creatinine methods. https://jasn.asnjournals.org/content/early//ASN.17076 78976 Performed By: #### 2 4320-2 #### OMERO KNIGHT ([id number]) [facility] ([facility]) [address] [place] [address] 56536 Glucose [Mass/Vol] 153 mg/dL High 74-99 [facility] Comment on above: Performed By: #### 2 1-2 #### OMERO KNIGHT ([id number]) [facility] ([facility]) [address] [place] [address] 58256 Potassium [Moles/Vol] 3.8 mmol/L Normal 3.5-5.3 [facility] Comment on above: Performed By: #### 2 4321-2 #### OMERO KNIGHT ([id number]) [facility] ([facility]) [address] [place] [address] 20744 Protein [Mass/Vol] 7.4 g/dL Normal 6.4-8.2 [facility] Comment on above: Performed By: #### 2 4321-2 #### OMERO KNIGHT ([id number]) [facility] ([facility]) [address] [place] [address] Sodium [Moles/Vol] 133 mmol/L Low 136-145 [facility] Comment on above: Performed By: #### 2 4321-2 #### OMERO KNIGHT ([id number]) [facility] ([facility]) [address] [place], [place] [address] Urea nitrogen [Mass/Vol] 29 mg/dL High 6-23 [facility] Comment on above: Performed By: #### 2 4321-2 #### OMERO KNIGHT ([id number]) [facility] ([facility]) [address] [place] [address] ECG 12-LEADon 11-06-2023 ECG 12-LEAD Ventricular Rate 96 QRS Duration 116 Q-T Interval 354 QTC Calculation(Bazett) 447 R [place] -50 T [place] 125 QRS Count 16 Q Onset 203 [...] and clinical correlation Confirmed by Sophie Florian ([id number]) on 11/06/2023 8:58:45 PM Normal [facility] Glucose Test strip manual (B ld) [Mass/Vol]on 11-06-2023 Glucose [Mass/Vol] 128 mg/dL High 74-99 [facility] Comment on above: Performed By: #### 3 0934-4 #### OMERO KNIGHT ([id number]) [facility] ([facility]) [address] [place] [address] Glucose [Mass/Vol] 98 mg/dL Normal 74-99 [facility] Comment on above: Performed By: #### 3 0934-4 #### OMERO KNIGHT ([id number]) [facility] ([facility]) [address] [place] [address] MR CERVICAL SPINE W AND WO I V CONTRASTon 11-06-2023 MR CERVICAL SPINE W AND WO IV CONTRAST Interpreted By: Lynda Bal, STUDY: MR CERVICAL SPINE W AND WO IV CONTRAST; 11/06/2023 12:58 pm INDICATION: Signs/Symptoms:Abnormal CT thoracic spine, Cancer staging. COMPARISON: None. ACCESSION NUMBER(S): [id number] ORDERING CLINICIAN: VERA HUANG TECHNIQUE: Sagittal T1, [...] throughout the cervical spine. Varying degrees of sqrv-nz-njqsolkc disc height loss. Cord: Within the limitation [...] Lynda Bal 11/06/2023 1:10 PM Dictation workstation: [id number] [facility] MR LUMBAR SPINE W AND WO IV CONTRASTon 11-06-2023 MR LUMBAR SPINE W AND WO IV CONTRAST Interpreted By: Lynda Bal, STUDY: MRI of the lumbar spine without IV contrast; 11/06/2023 12:58 pm INDICATION: Signs/Symptoms:Abnormal thoracic CT scan, cancer staging. COMPARISON: None. ACCESSION NUMBER(S): [id number] ORDERING CLINICIAN: VERA HUANG TECHNIQUE: Sagittal and [...] stenosis, narrowing of the subarticular recess and vczg-ee-rtkjmjpf bilateral neural foraminal stenosis. L3-L4: Disc bulge, [...] as stated. This study was interpreted at [place], [place]. MACRO: None Signed by: Lynda Bal 11/06/2023 1:29 PM Dictation workstation: [id number] [facility] MR THORACIC SPINE W AND WO I V CONTRASTon 11-06-2023 MR THORACIC SPINE W AND WO IV CONTRAST Interpreted By: Lynda Bal, STUDY: MR THORACIC SPINE W AND WO IV CONTRAST; 11/06/2023 12:58 pm INDICATION: Signs/Symptoms:Abnormal thoracic CT scan, cancer staging. COMPARISON: None. ACCESSION NUMBER(S): [id number] ORDERING CLINICIAN: VERA HUANG TECHNIQUE: Sagittal T1, T2, STIR and axial T2 and T1 weighted MR images of the thoracic spine were obtained. FINDINGS: Counting was performed from the C2 vertebral body on the childbirth and infant care teacher image. Alignment: There is slightly exaggerated thoracic [...] spine with mild degenerative endplate changes and sdko-jl-hapoljyx disc height loss. There is prevertebral infiltration [...] with moderate to severe spinal canal and dgdm-id-pjllogtx bilateral neural foraminal stenosis. T9-T10, T10-T11: Degenerative [...] Lynda Bal 11/06/2023 1:24 PM Dictation workstation: [id number] Normal [facility] Troponin I.cardiac panelon 0 11-06-2023 Tropinin I.cardiac panel High sensitivity method 9 ng/L Normal 0-13 [facility] Comment on above: Order Comment: Less [...] is performed using a differenttesting methodology at [facility] than at [facility]. Direct result comparisons should onlybe made within the same method. Performed By: #### 2 4321-2 #### OMERO KNIGHT ([id number]) [facility] ([facility]) [address] [place], [place] [address] Urinalysis complete W Reflex Culture panel (U)on 11-06-2023 Appearance (U) Turbid Normal Clear [facility] Comment on above: Performed By: #### 8 9577-1 #### OMERO KNIGHT ([id number]) [facility] ([facility]) [address] [place] [address] Bilirubin (U) [Mass/Vol] Negative Normal NEGATIVE [facility] Comment on above: Performed By: #### 8 9577-1 #### OMERO KNIGHT ([id number]) [facility] ([facility]) [address] [place] [address] Color (U) Yellow Normal Light-Yellow , Yellow, Dark-Yellow [facility] Comment on above: Performed By: #### 8 9577-1 #### OMERO KNIGHT ([id number]) [facility] ([facility]) [address] [place] [address] Glucose Auto test strip (U) [Mass/Vol] Normal Normal Normal [facility] Comment on above: Performed By: #### 8 9577-1 #### OMERO KNIGHT ([id number]) [facility] ([facility]) [address] [place] [id number] Ketones (U) [Mass/Vol] Negative Normal NEGATIVE [facility] Comment on above: Performed By: #### 8 9577-1 #### OMERO KNIGHT ([id number]) [facility] ([facility]) [address] [place] [id number] Leukocyte esterase Auto test strip Ql (U) 75 Ray/???L Abnormal NEGATIVE [facility] Comment on above: Performed By: #### 8 9577-1 #### OMERO KNIGHT ([id number]) [facility] ([facility]) [address] [place] [id number] Nitrite Auto test strip Ql (U) Negative Normal NEGATIVE [facility] Comment on above: Performed By: #### 8 9577-1 #### OMERO KNIGHT ([id number]) [facility] ([facility]) [address] [place] [address] pH (U) 5.5 [pH] Normal 5.0, 5.5, 6.0, 6.5, 7.0, 7.5, 8.0 [facility] Comment on above: Performed By: #### 8 9577-1 #### OMERO KNIGHT ([id number]) [facility] ([facility]) [address] [place] [address] Protein (U) [Mass/Vol] 20 (TRACE) Normal NEGAT JORGE, 10 (TRACE), 20 (TRACE) [facility] Comment on above: Performed By: #### 8 9577-1 #### OMERO KNIGHT ([id number]) [facility] ([facility]) [address] [place] [address] RBC (U) [#/Vol] 0.1 (1+) Abnormal NEGATIVE [facility] Comment on above: Performed By: #### 8 9577-1 #### OMERO KNIGHT ([id number]) [facility] ([facility]) [address] [place] [address] Specific gravity (U) [Rel density] 1.029 Normal 1.005-1.035 [facility] Comment on above: Performed By: #### 8 9577-1 #### OMERO KNIGHT ([id number]) [facility] ([facility]) [address] [place] [address] Urobilinogen (U) [Mass/Vol] 3 (1+) Abnormal Normal [facility] Comment on above: Result Comment: Some pigments and medications may cause a false positive urobilinogen. Performed By: #### 8 9577-1 #### OMERO KNIGHT ([id number]) [facility] ([facility]) [address] [place] [address] Urinalysis microscopic panel Auto Ql (U)on 11-06-2023 Bacteria Auto (Urine sed) [#/Area] 1+ /HPF Abnormal NONE SEEN [facility] Comment on above: Performed By: #### 2 4321-2 #### OMERO KNIGHT ([id number]) [facility] ([facility]) [address] [place] [address] Crystals.amorphous Computer assisted (U) [#/Area] 1+ /HPF Normal NONE, 1+, 2+ [facility] Comment on above: Performed By: #### 2 4321-2 #### OMERO KNIGHT ([id number]) [facility] ([facility]) [address] [place] [address] Epithelial cells.squamous Auto (Urine sed) [#/Area] 1-9 (SPARSE) Normal Reference range not established. [facility] Comment on above: Performed By: #### 2 4321-2 #### OMERO KNIGHT ([id number]) [facility] ([facility]) [address] [place] [address] Mucus Auto (Urine sed) [#/Area] FEW Normal Reference range not established. [facility] Comment on above: Performed By: #### 2 4321-2 #### OMERO KNIGHT ([id number]) [facility] ([facility]) [address] [place] [address] RBC Auto (Urine sed) [#/Area] 3-5 Normal NONE, 1-2, 3-5 [facility] Comment on above: Performed By: #### 2 4321-2 #### OMERO KNIGHT ([id number]) [facility] ([facility]) [address] [place], [place] [phone] WBC Auto (Urine sed) [#/Area] 1-5 Normal 1-5, NONE [facility] Comment on above: Performed By: #### 2 4321-2 #### OMERO KNIGHT ([id number]) [facility] ([facility]) [address] [place] [address] Basic metabolic 2000 panelon 10-15-2023 Anion gap [Moles/Vol] 12 mmol/L 10 - 2 0 mmol/L [place] Calcium [Mass/Vol] 8.6 mg/dL 8.6 - 10. 3 mg/dL [place] Chloride [Moles/Vol] 92 mmol/L Low 98 - 10 7 mmol/L [place] CO2 [Moles/Vol] 30 mmol/L 21 - 32 mmol/L [place] Creatinine [Mass/Vol] 0.67 mg/dL 0.50 - 1.05 mg/dL [place] eGFR - PINF [place] Comment on above: Calculations of hannah mated GFR are performed using the 2020 CKD-EPI Study Refit equation without the race variable for the IDMS-Traceable creatinine methods. https://jasn.asnjournals.org/content/early/ASN.69666 61363 Glucose [Mass/Vol] 170 mg/dL High 74 - 99 mg/dL [place] Interpretation and review of laboratory results Abnormal [place] Potassium [Moles/Vol] 3.7 mmol/L 3.5 - 5.3 mmol/L [place] Sodium [Moles/Vol] 130 mmol/L Low 136 - 145 mmol/L [place] Comment on above: Reviewed previous re sults Urea nitrogen [Mass/Vol] 19 mg/dL 6 - 23 mg/dL [facility] Anion gap [Moles/Vol] 12 mmol/L Normal 10-20 [facility] Comment on above: Performed By: #### 8 9577-1 #### OMERO KNIGHT ([id number]) [facility] ([facility]) [facility] [place] [address] Calcium [Mass/Vol] 8.6 mg/dL Normal 8.6-10.3 [facility] Comment on above: Performed By: #### 8 9577-1 #### OMERO KNIGHT ([id number]) [facility] ([facility]) [address] [place] [address] Chloride [Moles/Vol] 92 mmol/L Low 98-107 [facility] Comment on above: Performed By: #### 8 9577-1 #### OMERO KNIGHT ([id number]) [facility] ([facility]) [address] [place] [address] CO2 [Moles/Vol] 30 mmol/L Normal 21-32 [facility] Comment on above: Performed By: #### 8 9577-1 #### OMERO KNIGHT ([id number]) [facility] ([facility]) [facility] [place] [address] Creatinine [Mass/Vol] 0.67 mg/dL Normal 0.50-1.05 [facility] Comment on above: Performed By: #### 8 9577-1 #### OMERO KNIGHT ([id number]) [facility] ([facility]) [address] [place] [address] GFR/1.73 sq M.predicted MDRD (S/P/Bld) [Vol rate/Area] mL/min/{1.73_m2} Normal >60 [facility] Comment on above: Result Comment: Calc ulations of estimated GFR are performed using the 2020 CKD-EPI Study Refit equation without the race variable for the IDMS-Traceable creatinine methods. https://jasn.asnjournals.org/content/early//ASN.17727 00236 Performed By: #### 8 9577-1 #### OMERO KNIGHT ([id number]) [facility] ([facility]) [address] [place] [address] 49058 Glucose [Mass/Vol] 170 mg/dL High 74-99 [facility] Comment on above: Performed By: #### 8 9577-1 #### OMERO KNIGHT ([id number]) [facility] ([facility]) [address] [place] [address] 50643 Potassium [Moles/Vol] 3.7 mmol/L Normal 3.5-5.3 [facility] Comment on above: Performed By: #### 8 9577-1 #### OMERO KNIGHT ([id number]) [facility] ([facility]) [address] [place] [address] 91947 Sodium [Moles/Vol] 130 mmol/L Low 136-145 [facility] Comment on above: Result Comment: Revi ewed previous results Performed By: #### 8 9577-1 #### OMERO KNIGHT ([id number]) [facility] ([facility]) [address] [place] [address] 27470 Urea nitrogen [Mass/Vol] 19 mg/dL Normal 6-23 [facility] Comment on above: Performed By: #### 8 9577-1 #### OMERO KNIGHT ([id number]) [facility] ([facility]) [address] [place] [address] CBC panel Auto (Bld)on 10-14 Erythrocyte distribution width (RBC) [Ratio] 14.3 % 11.5 - 14.5 % [place] Hematocrit (Bld) [Volume fraction] 40.4 % 36.0 - 46.0 % [place] Hemoglobin (Bld) [Mass/Vol] 12.9 g/dL 12.0 - 16.0 g/dL [place] Interpretation and review of laboratory results Abnormal [place] MCH (RBC) [Entitic mass] 26.7 pg 26.0 - 34.0 pg [place] MCHC (RBC) [Mass/Vol] 31.9 g/dL Low 32.0 - 36.0 g/dL [place] MCV (RBC) [Entitic vol] 84 fL 80 - 100 fL [place] Nucleated RBC/100 WBC (Bld) [Ratio] 0.0 % [place] Platelets (Bld) [#/Vol] 275 10*3/uL [place] RBC (Bld) [#/Vol] 4.83 10*6/uL [facility] WBC (Bld) [#/Vol] 15.1 10*3/uL High [facility] Erythrocyte distribution width (RBC) [Ratio] 14.3 % Normal 11.5-14.5 [facility] Comment on above: Performed By: #### 8 9577-1 #### OMERO KNIGHT ([id number]) [facility] ([facility]) [address] [place] [address] Hematocrit (Bld) [Volume fraction] 40.4 % Normal 36.0-46.0 [facility] Comment on above: Performed By: #### 8 9577-1 #### OMERO KNIGHT ([id number]) [facility] ([facility]) [address] [place] [address] Hemoglobin (Bld) [Mass/Vol] 12.9 g/dL Normal 12.0-16.0 [facility] Comment on above: Performed By: #### 8 9577-1 #### OMERO KNIGHT ([id number]) [facility] ([facility]) [address] [place] [address] MCH (RBC) [Entitic mass] 26.7 pg Normal 26.0-34.0 [facility] Comment on above: Performed By: #### 8 9577-1 #### OMERO KNIGHT ([id number]) [facility] ([facility]) [address] [place] [address] MCHC (RBC) [Mass/Vol] 31.9 g/dL Low 32.0-36.0 [facility] Comment on above: Performed By: #### 8 9577-1 #### OMERO KNIGHT ([id number]) [facility] ([facility]) [address] [place], [place] [address] MCV (RBC) [Entitic vol] 84 fL Normal 80-100 [facility] Comment on above: Performed By: #### 8 9577-1 #### OMERO KNIGHT ([id number]) [facility] ([facility]) [address] [place], [place] [address] Nucleated RBC/100 WBC (Bld) [Ratio] 0.0 /100 WBCs Normal 0.0-0.0 [facility] Comment on above: Performed By: #### 8 9577-1 #### OMERO KNIGHT ([id number]) [facility] ([facility]) [address] [place] [address] 30247 Platelets (Bld) [#/Vol] 275 x10*3/uL Normal 150-450 [facility] Comment on above: Performed By: #### 8 9577-1 #### OMERO KNIGHT ([id number]) [facility] ([facility]) [address] [place] [address] 02659 RBC (Bld) [#/Vol] 4.83 x10*6/uL Normal 4.00-5.20 [facility] Comment on above: Performed By: #### 8 9577-1 #### OMERO KNIGHT ([id number]) [facility] ([facility]) [address] [place] [address] 32791 WBC (Bld) [#/Vol] 15.1 x10*3/uL High 4.4-11.3 [facility] Comment on above: Performed By: #### 8 9577-1 #### OMERO KNIGHT ([id number]) [facility] ([facility]) [address] [place] [address] Glucose Test strip manual (B ld) [Mass/Vol]on 10-15-2023 Glucose [Mass/Vol] 141 mg/dL High 74 - 99 mg/dL [place] Interpretation and review of laboratory results Abnormal [facility] Glucose [Mass/Vol] 141 mg/dL High 74-99 [facility] Comment on above: Performed By: #### 8 9577-1 #### OMERO KNIGHT ([id number]) [facility] ([facility]) [address] [place] [address] 05093 Glucose [Mass/Vol] 225 mg/dL High 74 - 99 mg/dL [place] Interpretation and review of laboratory results Abnormal [facility] Glucose [Mass/Vol] 225 mg/dL High 74-99 [facility] Comment on above: Performed By: #### 8 9577-1 #### OMERO KNIGHT ([id number]) [facility] ([facility]) [address] [place] [address] 43624 Glucose [Mass/Vol] 156 mg/dL High 74 - 99 mg/dL [place] Interpretation and review of laboratory results Abnormal [facility] Glucose [Mass/Vol] 156 mg/dL High 74-99 [facility] Comment on above: Performed By: #### 8 9577-1 #### OMERO KNIGHT ([id number]) [facility] ([facility]) [address] [place] [address] Basic metabolic 2000 panelon 10-14-2023 Anion gap [Moles/Vol] 12 mmol/L 10 - 2 0 mmol/L [place] Calcium [Mass/Vol] 8.7 mg/dL 8.6 - 10. 3 mg/dL [place] Chloride [Moles/Vol] 93 mmol/L Low 98 - 10 7 mmol/L [place] CO2 [Moles/Vol] 27 mmol/L 21 - 32 mmol/L [place] Creatinine [Mass/Vol] 0.66 mg/dL 0.50 - 1.05 mg/dL [place] eGFR - PINF [place] Comment on above: Calculations of hannah mated GFR are performed using the 2020 CKD-EPI Study Refit equation without the race variable for the IDMS-Traceable creatinine methods. https://jasn.asnjournals.org/content/early//ASN.07833 51362 Glucose [Mass/Vol] 177 mg/dL High 74 - 99 mg/dL [place] Interpretation and review of laboratory results Abnormal [place] Potassium [Moles/Vol] 3.7 mmol/L 3.5 - 5.3 mmol/L [place] Sodium [Moles/Vol] 128 mmol/L Low 136 - 145 mmol/L [place] Comment on above: Reviewed previous re sults Urea nitrogen [Mass/Vol] 25 mg/dL High 6 - 23 mg/dL [facility] Anion gap [Moles/Vol] 12 mmol/L Normal 10-20 [facility] Comment on above: Performed By: #### 2 4321-2 ####OMERO KNIGHT ([id number])[facility] ([facility])[address] [place] [phone] Calcium [Mass/Vol] 8.7 mg/dL Normal 8.6-10.3 [facility] Comment on above: Performed By: #### 2 4321-2 ####OMERO KNIGHT ([id number])[facility] ([facility])[address] [place] [address] Chloride [Moles/Vol] 93 mmol/L Low 98-107 [facility] Comment on above: Performed By: #### 2 4321-2 ####OMERO KNIGHT ([id number])[facility] ([facility] [place] [address] CO2 [Moles/Vol] 27 mmol/L Normal 21-32 [facility] Comment on above: Performed By: #### 2 4321-2 ####OMERO KNIGHT ([id number])[facility] ([facility])[address] [place] [address] 69864 Creatinine [Mass/Vol] 0.66 mg/dL Normal 0.50-1.05 [facility] Comment on above: Performed By: #### 2 4321-2 ####OMERO KNIGHT ([id number])[facility] ([facility])[address] [place] [address] 91920 GFR/1.73 sq M.predicted MDRD (S/P/Bld) [Vol rate/Area] mL/min/{1.73_m2} Normal >60 [facility] Comment on above: Result Comment: Calc ulations of estimated GFR are performed using the 2020 CKD-EPI Study Refit equation without the race variable for the IDMS-Traceable creatinine methods. https://jasn.asnjournals.org/content//ASN.85612 82311 Performed By: #### 2 4321-2 ####OMERO KNIGHT ([id number])[facility] ([facility])[address] [place] [address] 92670 Glucose [Mass/Vol] 177 mg/dL High 74-99 [facility] Comment on above: Performed By: #### 2 4321-2 ####OMERO KNIGHT ([id number])[facility] ([facility] [place] [address] Potassium [Moles/Vol] 3.7 mmol/L Normal 3.5-5.3 [facility] Comment on above: Performed By: #### 2 4321-2 ####OMERO KNIGHT ([id number])[facility] ([facility] [place] [phone] Sodium [Moles/Vol] 128 mmol/L Low 136-145 [facility] Comment on above: Result Comment: Revi ewed previous results Performed By: #### 2 4321-2 ####OMERO KNIGHT ([id number])[facility] ([facility])[address] [place], [place] [address] Urea nitrogen [Mass/Vol] 25 mg/dL High 6-23 [facility] Comment on above: Performed By: #### 2 4321-2 ####OMERO KNIGHT ([id number])[facility] ([facility])[address] [place] [address] 56052 CBC panel Auto (Bld)on 10-13 Erythrocyte distribution width (RBC) [Ratio] 14.4 % 11.5 - 14.5 % [place] Hematocrit (Bld) [Volume fraction] 38.0 % 36.0 - 46.0 % [place] Hemoglobin (Bld) [Mass/Vol] 12.3 g/dL 12.0 - 16.0 g/dL [place] Interpretation and review of laboratory results Abnormal [place] MCH (RBC) [Entitic mass] 26.7 pg 26.0 - 34.0 pg [place] MCHC (RBC) [Mass/Vol] 32.4 g/dL 32.0 - 36.0 g/dL [place] MCV (RBC) [Entitic vol] 82 fL 80 - 100 fL [place] Nucleated RBC/100 WBC (Bld) [Ratio] 0.0 % [place] Platelets (Bld) [#/Vol] 299 10*3/uL [place] RBC (Bld) [#/Vol] 4.61 10*6/uL [facility] WBC (Bld) [#/Vol] 14.2 10*3/uL High [facility] Erythrocyte distribution width (RBC) [Ratio] 14.4 % Normal 11.5-14.5 [facility] Comment on above: Performed By: #### 5 8410-2 ####OMERO KNIGHT ([id number])[facility] ([facility])[address] [place] [address] Hematocrit (Bld) [Volume fraction] 38.0 % Normal 36.0-46.0 [facility] Comment on above: Performed By: #### 5 8410-2 ####OMERO KNIGHT ([id number])[facility] ([facility])[address] [place] [address] 04240 Hemoglobin (Bld) [Mass/Vol] 12.3 g/dL Normal 12.0-16.0 [facility] Comment on above: Performed By: #### 5 8410-2 ####OMERO KNIGHT ([id number])[facility] ([facility])[address] [place] [address] 32512 MCH (RBC) [Entitic mass] 26.7 pg Normal 26.0-34.0 [facility] Comment on above: Performed By: #### 5 8410-2 ####OMERO KNIGHT ([id number])[facility] ([facility])[address] [place] [address] 64002 MCHC (RBC) [Mass/Vol] 32.4 g/dL Normal 32.0-36.0 [facility] Comment on above: Performed By: #### 5 8410-2 ####OMERO KNIGHT (09909)[facility] ([facility])[address] [place] [address] 12234 MCV (RBC) [Entitic vol] 82 fL Normal 80-100 [facility] Comment on above: Performed By: #### 5 8410-2 ####OMERO KNIGHT (93512)[facility] ([facility])[address] [place] [address] 84910 Nucleated RBC/100 WBC (Bld) [Ratio] 0.0 /100 WBCs Normal 0.0-0.0 [facility] Comment on above: Performed By: #### 5 8410-2 ####OMERO KNIGHT ([id number])[facility] ([facility])[address] [place] [address] 60013 Platelets (Bld) [#/Vol] 299 x10*3/uL Normal 150-450 [facility] Comment on above: Performed By: #### 5 8410-2 ####OMERO KNIGHT ([id number])[facility] ([facility])[address] [place] [address] 78052 RBC (Bld) [#/Vol] 4.61 x10*6/uL Normal 4.00-5.20 [facility] Comment on above: Performed By: #### 5 8410-2 ####OMERO KNIGHT ([id number])[facility] ([facility])[address] [place] [address] 05967 WBC (Bld) [#/Vol] 14.2 x10*3/uL High 4.4-11.3 [facility] Comment on above: Performed By: #### 5 8410-2 ####OMERO KNIGHT (69291)[facility] ([facility])[address] [place] [address] 24863 Glucose Test strip manual (B ld) [Mass/Vol]on 10-14-2023 Glucose [Mass/Vol] 159 mg/dL High 74 - 99 mg/dL [place] Interpretation and review of laboratory results Abnormal [facility] Glucose [Mass/Vol] 159 mg/dL High 74-99 [facility] Comment on above: Performed By: #### 8 9577-1 #### OMERO KNIGHT (06021) [facility] ([facility]) [address] [place] [address] 77614 Glucose [Mass/Vol] 201 mg/dL High 74 - 99 mg/dL [place] Interpretation and review of laboratory results Abnormal [facility] Glucose [Mass/Vol] 201 mg/dL High 74-99 [facility] Comment on above: Performed By: #### 8 9577-1 #### OMERO KNIGHT ([id number]) [facility] ([facility]) [address] [place] [address] Glucose [Mass/Vol] 154 mg/dL High 74 - 99 mg/dL [place] Interpretation and review of laboratory results Abnormal [facility] Glucose [Mass/Vol] 154 mg/dL High 74-99 [facility] Comment on above: Performed By: #### 8 9577-1 #### OMERO KNIGHT (38251) [facility] ([facility]) [address] [place] [address] Glucose [Mass/Vol] 179 mg/dL High 74 - 99 mg/dL [place] Interpretation and review of laboratory results Abnormal [facility] Glucose [Mass/Vol] 179 mg/dL High 74-99 [facility] Comment on above: Performed By: #### 2 341-6 ####OMERO KNIGHT ([id number])[facility] ([facility])[address] [place] [address] 05919 Basic metabolic 2000 panelon 10-13-2023 Anion gap [Moles/Vol] 13 mmol/L 10 - 2 0 mmol/L [place] Calcium [Mass/Vol] 8.7 mg/dL 8.6 - 10. 3 mg/dL [place] Chloride [Moles/Vol] 94 mmol/L Low 98 - 10 7 mmol/L [place] CO2 [Moles/Vol] 26 mmol/L 21 - 32 mmol/L [place] Creatinine [Mass/Vol] 0.75 mg/dL 0.50 - 1.05 mg/dL [place] GFR/1.73 sq M.predicted among non-blacks MDRD (S/P/Bld) [Vol rate/Area] 83 mL/min/{1.73_m2} - PINF [place] Comment on above: Calculations of hannah mated GFR are performed using the 2020 CKD-EPI Study Refit equation without the race variable for the IDMS-Traceable creatinine methods. https://jasn.asnjournals.org/content//ASN.45729 50880 Glucose [Mass/Vol] 186 mg/dL High 74 - 99 mg/dL [place] Interpretation and review of laboratory results Abnormal [place] Potassium [Moles/Vol] 4.0 mmol/L 3.5 - 5.3 mmol/L [place] Sodium [Moles/Vol] 129 mmol/L Low 136 - 145 mmol/L [place] Urea nitrogen [Mass/Vol] 32 mg/dL High 6 - 23 mg/dL [facility] Anion gap [Moles/Vol] 13 mmol/L Normal 10-20 [facility] Comment on above: Performed By: #### 2 4321-2 ####OMERO KNIGHT (56958)[facility] ([facility])[address] [place] [address] 08107 Calcium [Mass/Vol] 8.7 mg/dL Normal 8.6-10.3 [facility] Comment on above: Performed By: #### 2 4321-2 ####OMERO KNIGHT (19609)[facility] ([facility])[address] [place] [address] 57249 Chloride [Moles/Vol] 94 mmol/L Low 98-107 [facility] Comment on above: Performed By: #### 2 4321-2 ####OMERO KNIGHT ([id number])[facility] ([facility] [place] [address] CO2 [Moles/Vol] 26 mmol/L Normal 21-32 [facility] Comment on above: Performed By: #### 2 4321-2 ####OMERO KNIGHT ([id number])[facility] ([facility])[address] [place] [address] 62968 Creatinine [Mass/Vol] 0.75 mg/dL Normal 0.50-1.05 [facility] Comment on above: Performed By: #### 2 4321-2 ####OMERO KNIGHT ([id number])[facility] ([facility])[address] [place] [address] 08804 Glomerular filtration rate/1.73 sq M.predicted 83 mL/min/1.73m*2 Normal >60 [facility] Comment on above: Result Comment: Calc ulations of estimated GFR are performed using the 2020 CKD-EPI Study Refit equation without the race variable for the IDMS-Traceable creatinine methods. https://jasn.asnjournals.org/content//ASN.82637 54335 Performed By: #### 2 4321-2 ####OMERO KNIGHT ([id number])[facility] ([facility])[address] [place] [address] 18017 Glucose [Mass/Vol] 186 mg/dL High 74-99 [facility] Comment on above: Performed By: #### 2 4321-2 ####OMERO KNIGHT (48677)[facility] ([facility])[address] [place] [address] 01150 Potassium [Moles/Vol] 4.0 mmol/L Normal 3.5-5.3 [facility] Comment on above: Performed By: #### 2 4321-2 ####OMERO KNIGHT ([id number])[facility] ([facility])[address] [place] [address] 21032 Sodium [Moles/Vol] 129 mmol/L Low 136-145 [facility] Comment on above: Performed By: #### 2 4321-2 ####OMERO KNIGHT ([id number])[facility] ([facility])[address] [place] [address] 33002 Urea nitrogen [Mass/Vol] 32 mg/dL High 6-23 [facility] Comment on above: Performed By: #### 2 4321-2 ####OMERO KNIGHT ([id number])[facility] ([facility])[address] [place] [address] [id number] CBC panel Auto (Bld)on 10-12 Erythrocyte distribution width (RBC) [Ratio] 14.4 % 11.5 - 14.5 % [place] Hematocrit (Bld) [Volume fraction] 38.0 % 36.0 - 46.0 % [place] Hemoglobin (Bld) [Mass/Vol] 12.1 g/dL 12.0 - 16.0 g/dL [place] Interpretation and review of laboratory results Abnormal [place] MCH (RBC) [Entitic mass] 26.5 pg 26.0 - 34.0 pg [place] MCHC (RBC) [Mass/Vol] 31.8 g/dL Low 32.0 - 36.0 g/dL [place] MCV (RBC) [Entitic vol] 83 fL 80 - 100 fL [place] Nucleated RBC/100 WBC (Bld) [Ratio] 0.0 % [place] Platelets (Bld) [#/Vol] 269 10*3/uL [place] RBC (Bld) [#/Vol] 4.57 10*6/uL [facility] WBC (Bld) [#/Vol] 18.1 10*3/uL High [facility] [place] Erythrocyte distribution width (RBC) [Ratio] 14.4 % Normal 11.5-14.5 [facility] Comment on above: Performed By: #### 5 8410-2 ####OMERO KNIGHT ([id number])[facility] ([facility])[address] [place] [address] 22772 Hematocrit (Bld) [Volume fraction] 38.0 % Normal 36.0-46.0 [facility] Comment on above: Performed By: #### 5 8410-2 ####OMERO KNIGHT ([id number])[facility] ([facility])[address] [place] [address] 87330 Hemoglobin (Bld) [Mass/Vol] 12.1 g/dL Normal 12.0-16.0 [facility] Comment on above: Performed By: #### 5 8410-2 ####OMERO KNIGHT ([id number])[facility] ([facility])[address] [place] [address] 04644 MCH (RBC) [Entitic mass] 26.5 pg Normal 26.0-34.0 [facility] Comment on above: Performed By: #### 5 8410-2 ####OMERO KNIGHT ([id number])[facility] ([facility])[address] [place] [address] MCHC (RBC) [Mass/Vol] 31.8 g/dL Low 32.0-36.0 [facility] Comment on above: Performed By: #### 5 8410-2 ####OMERO KNIGHT ([id number])[facility] ([facility])[address] [place], [place] [phone] MCV (RBC) [Entitic vol] 83 fL Normal 80-100 [facility] Comment on above: Performed By: #### 5 8410-2 ####OMERO KNIGHT ([id number])[facility] ([facility])[address] [place] [address] Nucleated RBC/100 WBC (Bld) [Ratio] 0.0 /100 WBCs Normal 0.0-0.0 [facility] Comment on above: Performed By: #### 5 8410-2 ####OMERO KNIGHT ([id number])[facility] ([facility])[address] [place], [place] [address] Platelets (Bld) [#/Vol] 269 x10*3/uL Normal 150-450 [facility] Comment on above: Performed By: #### 5 8410-2 ####OMERO KNIGHT ([id number])[facility] ([facility])[address] [place], [place] [address] RBC (Bld) [#/Vol] 4.57 x10*6/uL Normal 4.00-5.20 [facility] Comment on above: Performed By: #### 5 8410-2 ####OMERO KNIGHT ([id number])[facility] ([facility])[address] [place] [address] 85629 WBC (Bld) [#/Vol] 18.1 x10*3/uL High 4.4-11.3 [facility] Comment on above: Performed By: #### 5 8410-2 ####OMERO KNIGHT ([id number])[facility] ([facility])[address] [place], [place] [phone] Glucose Test strip manual (B ld) [Mass/Vol]on 10-13-2023 Glucose [Mass/Vol] 168 mg/dL High 74 - 99 mg/dL [place] Interpretation and review of laboratory results Abnormal [facility] Glucose [Mass/Vol] 168 mg/dL High 74-99 [facility] Comment on above: Performed By: #### 2 341-6 ####OMERO KNIGHT ([id number])[facility] ([facility])[address] [place] [address] 67531 Glucose [Mass/Vol] 192 mg/dL High 74 - 99 mg/dL [place] Comment on above: RN/MD NOTIFIED Interpretation and review of laboratory results Abnormal [facility] Glucose [Mass/Vol] 192 mg/dL High 74-99 [facility] Comment on above: Result Comment: RN/M D NOTIFIED Performed By: #### 2 341-6 ####OMERO KNIGHT ([id number])[facility] ([facility])[address] [place] [address] 26252 Glucose [Mass/Vol] 157 mg/dL High 74 - 99 mg/dL [place] Interpretation and review of laboratory results Abnormal [facility] Glucose [Mass/Vol] 157 mg/dL High 74-99 [facility] Comment on above: Performed By: #### 2 341-6 ####OMERO KNIGHT ([id number])[facility] ([facility])[address] [place] [address] 89161 Glucose [Mass/Vol] 167 mg/dL High 74 - 99 mg/dL [place] Comment on above: RN/MD NOTIFIED Interpretation and review of laboratory results Abnormal [facility] Glucose [Mass/Vol] 167 mg/dL High 74-99 [facility] Comment on above: Result Comment: RN/M D NOTIFIED Performed By: #### 2 341-6 ####OMERO KNIGHT ([id number])[facility] ([facility])[address] [place] [address] 64990 Bacteria identified Cx Nom ( U)Ordered By: Heather Messer on 10-12-2023 Interpretation and review of laboratory results Abnormal [facility] Basic metabolic 2000 panelon 10-12-2023 Anion gap [Moles/Vol] 12 mmol/L 10 - 2 0 mmol/L [place] Calcium [Mass/Vol] 9.1 mg/dL 8.6 - 10. 3 mg/dL [place] Chloride [Moles/Vol] 93 mmol/L Low 98 - 10 7 mmol/L [place] CO2 [Moles/Vol] 28 mmol/L 21 - 32 mmol/L [place] Creatinine [Mass/Vol] 0.87 mg/dL 0.50 - 1.05 mg/dL [place] GFR/1.73 sq M.predicted among non-blacks MDRD (S/P/Bld) [Vol rate/Area] 70 mL/min/{1.73_m2} - PINF [place] Comment on above: Calculations of hannah mated GFR are performed using the 2020 CKD-EPI Study Refit equation without the race variable for the IDMS-Traceable creatinine methods. https://jasn.asnjournals.org/content/early/ASN.47582 72731 Glucose [Mass/Vol] 191 mg/dL High 74 - 99 mg/dL [place] Interpretation and review of laboratory results Abnormal [place] Potassium [Moles/Vol] 3.3 mmol/L Low 3.5 - 5.3 mmol/L [place] Sodium [Moles/Vol] 130 mmol/L Low 136 - 145 mmol/L [place] Urea nitrogen [Mass/Vol] 38 mg/dL High 6 - 23 mg/dL [facility] Anion gap [Moles/Vol] 12 mmol/L Normal 10-20 [facility] Comment on above: Performed By: #### 5 7021-8 #### JAMIL EUGENE ([id number]) [facility] ([facility]) [address] [place] [address] Calcium [Mass/Vol] 9.1 mg/dL Normal 8.6-10.3 [facility] Comment on above: Performed By: #### 5 7021-8 #### OMERO KNIGHT ([id number]) [facility] ([facility]) [facility] [place] [address] Chloride [Moles/Vol] 93 mmol/L Low 98-107 [facility] Comment on above: Performed By: #### 5 7021-8 #### OMERO KNIGHT ([id number]) [facility] ([facility]) [address] [place] [address] 27105 CO2 [Moles/Vol] 28 mmol/L Normal 21-32 [facility] Comment on above: Performed By: #### 5 7021-8 #### OMERO KNIGHT ([id number]) [facility] ([facility]) [address] [place] [address] 93183 Creatinine [Mass/Vol] 0.87 mg/dL Normal 0.50-1.05 [facility] Comment on above: Performed By: #### 5 7021-8 #### OMERO KNIGHT ([id number]) [facility] ([facility]) [address] [place] [address] 82927 Glomerular filtration rate/1.73 sq M.predicted 70 mL/min/1.73m*2 Normal >60 [facility] Comment on above: Result Comment: Calc ulations of estimated GFR are performed using the 2020 CKD-EPI Study Refit equation without the race variable for the IDMS-Traceable creatinine methods. https://jasn.asnjournals.org/content//ASN.01361 46585 Performed By: #### 5 7021-8 #### OMERO KNIGHT ([id number]) [facility] ([facility]) [address] [place] [address] 07408 Glucose [Mass/Vol] 191 mg/dL High 74-99 [facility] Comment on above: Performed By: #### 5 7021-8 #### OMERO KNIGHT ([id number]) [facility] ([facility]) [address] [place] [address] 56006 Potassium [Moles/Vol] 3.3 mmol/L Low 3.5-5.3 [facility] Comment on above: Performed By: #### 5 7021-8 #### OMERO KNIGHT ([id number]) [facility] ([facility]) [address] [place] [address] Sodium [Moles/Vol] 130 mmol/L Low 136-145 [facility] Comment on above: Performed By: #### 5 7021-8 #### OMERO KNIGHT ([id number]) [facility] ([facility]) [address] [place] [phone] Urea nitrogen [Mass/Vol] 38 mg/dL High 6-23 [facility] Comment on above: Performed By: #### 5 7021-8 #### OMERO KNIGHT ([id number]) [facility] ([facility]) [address] [place] [address] CBC panel Auto (Bld)on 10-11 Erythrocyte distribution width (RBC) [Ratio] 14.2 % 11.5 - 14.5 % [place] Hematocrit (Bld) [Volume fraction] 40.3 % 36.0 - 46.0 % [place] Hemoglobin (Bld) [Mass/Vol] 13.0 g/dL 12.0 - 16.0 g/dL [place] Interpretation and review of laboratory results Abnormal [place] MCH (RBC) [Entitic mass] 26.7 pg 26.0 - 34.0 pg [place] MCHC (RBC) [Mass/Vol] 32.3 g/dL 32.0 - 36.0 g/dL [place] MCV (RBC) [Entitic vol] 83 fL 80 - 100 fL [place] Nucleated RBC/100 WBC (Bld) [Ratio] 0.0 % [place] Platelets (Bld) [#/Vol] 300 10*3/uL [place] RBC (Bld) [#/Vol] 4.86 10*6/uL [facility] WBC (Bld) [#/Vol] 23.0 10*3/uL High [facility] Erythrocyte distribution width (RBC) [Ratio] 14.2 % Normal 11.5-14.5 [facility] Comment on above: Performed By: #### 5 7021-8 #### OMERO KNIGHT ([id number]) [facility] ([facility]) [address] [place] [address] Hematocrit (Bld) [Volume fraction] 40.3 % Normal 36.0-46.0 [facility] Comment on above: Performed By: #### 5 7021-8 #### OMERO KNIGHT ([id number]) [facility] ([facility]) [address] [place] [address] Hemoglobin (Bld) [Mass/Vol] 13.0 g/dL Normal 12.0-16.0 [facility] Comment on above: Performed By: #### 5 7021-8 #### OMERO KNIGHT ([id number]) [facility] ([facility]) [address] [place] [address] MCH (RBC) [Entitic mass] 26.7 pg Normal 26.0-34.0 [facility] Comment on above: Performed By: #### 5 7021-8 #### OMERO KNIGHT ([id number]) [facility] ([facility]) [address] [place] [address] 16124 MCHC (RBC) [Mass/Vol] 32.3 g/dL Normal 32.0-36.0 [facility] Comment on above: Performed By: #### 5 7021-8 #### OMERO KNIGHT ([id number]) [facility] ([facility]) [address] [place] [address] 40298 MCV (RBC) [Entitic vol] 83 fL Normal 80-100 [facility] Comment on above: Performed By: #### 5 7021-8 #### OMERO KNIGHT ([id number]) [facility] ([facility]) [address] [place], [place] [address] Nucleated RBC/100 WBC (Bld) [Ratio] 0.0 /100 WBCs Normal 0.0-0.0 [facility] Comment on above: Performed By: #### 5 7021-8 #### OMERO KNIGHT ([id number]) [facility] ([facility]) [address] [place] [address] 89847 Platelets (Bld) [#/Vol] 300 x10*3/uL Normal 150-450 [facility] Comment on above: Performed By: #### 5 7021-8 #### OMERO KNIGHT ([id number]) [facility] ([facility]) [address] [place] [address] 83908 RBC (Bld) [#/Vol] 4.86 x10*6/uL Normal 4.00-5.20 [facility] Comment on above: Performed By: #### 5 7021-8 #### OMERO KNIGHT ([id number]) [facility] ([facility]) [address] [place] [address] 89403 WBC (Bld) [#/Vol] 23.0 x10*3/uL High 4.4-11.3 [facility] Comment on above: Performed By: #### 5 7021-8 #### OMERO KNIGHT ([id number]) [facility] ([facility]) [address] [place] [address] 00343 Glucose Test strip manual (B ld) [Mass/Vol]on 10-12-2023 Glucose [Mass/Vol] 189 mg/dL High 74 - 99 mg/dL [place] Interpretation and review of laboratory results Abnormal [facility] Glucose [Mass/Vol] 189 mg/dL High 74-99 [facility] Comment on above: Performed By: #### 2 341-6 ####OMERO KNIGHT ([id number])[facility] ([facility])[address] [place] [address] 06873 Glucose [Mass/Vol] 264 mg/dL High 74 - 99 mg/dL [place] Interpretation and review of laboratory results Abnormal [facility] Glucose [Mass/Vol] 264 mg/dL High 74-99 [facility] Comment on above: Performed By: #### 5 7021-8 #### OMERO KNIGHT ([id number]) [facility] ([facility]) [address] [place] [address] Glucose [Mass/Vol] 167 mg/dL High 74 - 99 mg/dL [place] Interpretation and review of laboratory results Abnormal [facility] Glucose [Mass/Vol] 167 mg/dL High 74-99 [facility] Comment on above: Performed By: #### 5 7021-8 #### OMERO KNIGHT ([id number]) [facility] ([facility]) [facility] [place] [address] Glucose [Mass/Vol] 179 mg/dL High 74 - 99 mg/dL [place] Interpretation and review of laboratory results Abnormal [facility] Glucose [Mass/Vol] 179 mg/dL High 74-99 [facility] Comment on above: Performed By: #### 5 7021-8 #### OMERO KNIGHT ([id number]) [facility] ([facility]) [address] [place], [place] [phone] Urine CultureOrdered By: Anastasiia Messer on 10-12-2023 Bacteria identified Cx Nom (U) >100,000 Proteus mirabilis Abnormal [place] Basic metabolic 2000 panelon 10-11-2023 Anion gap [Moles/Vol] 17 mmol/L 10 - 2 0 mmol/L [place] Calcium [Mass/Vol] 8.6 mg/dL 8.6 - 10. 3 mg/dL [place] Chloride [Moles/Vol] 92 mmol/L Low 98 - 10 7 mmol/L [place] CO2 [Moles/Vol] 21 mmol/L 21 - 32 mmol/L [place] Creatinine [Mass/Vol] 0.90 mg/dL 0.50 - 1.05 mg/dL [place] GFR/1.73 sq M.predicted among non-blacks MDRD (S/P/Bld) [Vol rate/Area] 67 mL/min/{1.73_m2} - PINF [place] Comment on above: Calculations of hannah mated GFR are performed using the 2020 CKD-EPI Study Refit equation without the race variable for the IDMS-Traceable creatinine methods. https://jasn.asnjournals.org/content//ASN.40749 40074 Glucose [Mass/Vol] 192 mg/dL High 74 - 99 mg/dL [place] Interpretation and review of laboratory results Abnormal [place] Potassium [Moles/Vol] 4.0 mmol/L 3.5 - 5.3 mmol/L [place] Comment on above: MILD HEMOLYSIS DETEC KAYLA. The result may be falsely elevated due to hemolysis or other interferents. Clinical correlation is recommended. Repeat testing may be considered. Sodium [Moles/Vol] 126 mmol/L Low 136 - 145 mmol/L [place] Urea nitrogen [Mass/Vol] 35 mg/dL High 6 - 23 mg/dL [facility] Anion gap [Moles/Vol] 17 mmol/L Normal 10-20 [facility] Comment on above: Performed By: #### 2 341-6 #### OMERO KNIGHT ([id number]) [facility] ([facility]) [facility] [place] [address] Calcium [Mass/Vol] 8.6 mg/dL Normal 8.6-10.3 [facility] Comment on above: Performed By: #### 2 341-6 #### OMERO KNIGHT ([id number]) [facility] ([facility]) [address] [place] [address] Chloride [Moles/Vol] 92 mmol/L Low 98-107 [facility] Comment on above: Performed By: #### 2 341-6 #### OMERO KNIGHT ([id number]) [facility] ([facility]) [facility] [place] [address] CO2 [Moles/Vol] 21 mmol/L Normal 21-32 [facility] Comment on above: Performed By: #### 2 341-6 #### OMERO KNIGHT ([id number]) [facility] ([facility]) [address] [place] [address] 07746 Creatinine [Mass/Vol] 0.90 mg/dL Normal 0.50-1.05 [facility] Comment on above: Performed By: #### 2 341-6 #### OMERO KNIGHT ([id number]) [facility] ([facility]) [address] [place] [address] 49529 Glomerular filtration rate/1.73 sq M.predicted 67 mL/min/1.73m*2 Normal >60 [facility] Comment on above: Result Comment: Calc ulations of estimated GFR are performed using the 2020 CKD-EPI Study Refit equation without the race variable for the IDMS-Traceable creatinine methods. https://jasn.asnjournals.org/content/early//ASN.65651 02617 Performed By: #### 2 341-6 #### OMERO KNIGHT ([id number]) [facility] ([facility]) [address] [place] [address] 72217 Glucose [Mass/Vol] 192 mg/dL High 74-99 [facility] Comment on above: Performed By: #### 2 341-6 #### OMERO KNIGHT ([id number]) [facility] ([facility]) [address] [place] [address] 25844 Potassium [Moles/Vol] 4.0 mmol/L Normal 3.5-5.3 [facility] Comment on above: Result Comment: MILD HEMOLYSIS DETECTED. The result may be falsely elevated due to hemolysis or other interferents. Clinical correlation is recommended. Repeat testing may be considered. Performed By: #### 2 341-6 #### OMERO KNIGHT ([id number]) [facility] ([facility]) [address] [place] [address] 80574 Sodium [Moles/Vol] 126 mmol/L Low 136-145 [facility] Comment on above: Performed By: #### 2 341-6 #### OMERO KNIGHT ([id number]) [facility] ([facility]) [address] [place] [address] 99926 Urea nitrogen [Mass/Vol] 35 mg/dL High 6-23 [facility] Comment on above: Performed By: #### 2 341-6 #### OMERO KNIGHT ([id number]) [facility] ([facility]) [address] [place] [address] CBC panel Auto (Bld)on 10-10 Erythrocyte distribution width (RBC) [Ratio] 14.2 % 11.5 - 14.5 % [place] Hematocrit (Bld) [Volume fraction] 37.3 % 36.0 - 46.0 % [place] Hemoglobin (Bld) [Mass/Vol] 12.3 g/dL 12.0 - 16.0 g/dL [place] Interpretation and review of laboratory results Abnormal [place] MCH (RBC) [Entitic mass] 27.4 pg 26.0 - 34.0 pg [place] MCHC (RBC) [Mass/Vol] 33.0 g/dL 32.0 - 36.0 g/dL [place] MCV (RBC) [Entitic vol] 83 fL 80 - 100 fL [place] Nucleated RBC/100 WBC (Bld) [Ratio] 0.0 % [place] Platelets (Bld) [#/Vol] 218 10*3/uL [place] RBC (Bld) [#/Vol] 4.49 10*6/uL [facility] WBC (Bld) [#/Vol] 20.1 10*3/uL High [facility] Erythrocyte distribution width (RBC) [Ratio] 14.2 % Normal 11.5-14.5 [facility] Comment on above: Performed By: #### 2 341-6 #### OMERO KNIGHT ([id number]) [facility] ([facility]) [address] [place] [address] Hematocrit (Bld) [Volume fraction] 37.3 % Normal 36.0-46.0 [facility] Comment on above: Performed By: #### 2 341-6 #### OMERO KNIGHT ([id number]) [facility] ([facility]) [address] [place] [address] Hemoglobin (Bld) [Mass/Vol] 12.3 g/dL Normal 12.0-16.0 [facility] Comment on above: Performed By: #### 2 341-6 #### OMERO KNIGHT ([id number]) [facility] ([facility]) [address] [place] [address] 96742 MCH (RBC) [Entitic mass] 27.4 pg Normal 26.0-34.0 [facility] Comment on above: Performed By: #### 2 341-6 #### OMERO KNIGHT ([id number]) [facility] ([facility]) [address] [place] [address] 95473 MCHC (RBC) [Mass/Vol] 33.0 g/dL Normal 32.0-36.0 [facility] Comment on above: Performed By: #### 2 341-6 #### OMERO KNIGHT ([id number]) [facility] ([facility]) [address] [place] [address] 56310 MCV (RBC) [Entitic vol] 83 fL Normal 80-100 [facility] Comment on above: Performed By: #### 2 341-6 #### OMERO KNIGHT ([id number]) [facility] ([facility]) [address] [place] [address] 97446 Nucleated RBC/100 WBC (Bld) [Ratio] 0.0 /100 WBCs Normal 0.0-0.0 [facility] Comment on above: Performed By: #### 2 341-6 #### OMERO KNIGHT ([id number]) [facility] ([facility]) [address] [place] [address] 10834 Platelets (Bld) [#/Vol] 218 x10*3/uL Normal 150-450 [facility] Comment on above: Performed By: #### 2 341-6 #### OMERO KNIGHT ([id number]) [facility] ([facility]) [address] [place] [address] 44866 RBC (Bld) [#/Vol] 4.49 x10*6/uL Normal 4.00-5.20 [facility] Comment on above: Performed By: #### 2 341-6 #### OMERO KNIGHT ([id number]) [facility] ([facility]) [address] [place] [address] 79591 WBC (Bld) [#/Vol] 20.1 x10*3/uL High 4.4-11.3 [facility] Comment on above: Performed By: #### 2 341-6 #### OMERO KNIGHT ([id number]) [facility] ([facility]) [address] [place] [address] 79100 Glucose Test strip manual (B ld) [Mass/Vol]on 10-11-2023 Glucose [Mass/Vol] 212 mg/dL High 74 - 99 mg/dL [place] Interpretation and review of laboratory results Abnormal [facility] Glucose [Mass/Vol] 212 mg/dL High 74-99 [facility] Comment on above: Performed By: #### 5 7021-8 #### OMERO KNIGHT ([id number]) [facility] ([facility]) [address] [place] [address] 27872 Glucose [Mass/Vol] 204 mg/dL High 74 - 99 mg/dL [place] Interpretation and review of laboratory results Abnormal [facility] Glucose [Mass/Vol] 204 mg/dL High 74-99 [facility] Comment on above: Performed By: #### 5 7021-8 #### OMERO KNIGHT ([id number]) [facility] ([facility]) [address] [place] [address] 11684 Glucose [Mass/Vol] 194 mg/dL High 74 - 99 mg/dL [place] Interpretation and review of laboratory results Abnormal [facility] Glucose [Mass/Vol] 194 mg/dL High 74-99 [facility] Comment on above: Performed By: #### 5 7021-8 #### OMERO KNIGHT ([id number]) [facility] ([facility]) [address] [place] [address] 52001 Glucose [Mass/Vol] 182 mg/dL High 74 - 99 mg/dL [place] Comment on above: RN/MD NOTIFIED Interpretation and review of laboratory results Abnormal [facility] Glucose [Mass/Vol] 182 mg/dL High 74-99 [facility] Comment on above: Result Comment: RN/Shaheen Licea NOTIFIED Performed By: #### 5 7021-8 #### OMERO KNIGHT ([id number]) [facility] ([facility]) [facility] [place] [address] Bacteria identifiedon 2023 Bacteria identified Cx Nom (U) Test: Urine Culture Specimen Source: Clean Catch/Voided Specimen Type: Urine Specimen Date: 10/10/2023327 Result Date: 10/12/20231546 Result Status: Final result Abnormal: Yes Resulting Lab: [facility] [id number] [place] [address] CULTURE >100,000 Proteus mirabilis (Abnormal) SUSCEPTIBILITY Proteus mirabilis METHOD MICROSCAN --- AMPICILLIN <=8.000 mcg/mL Susceptible CEFAZOLIN <=2 mcg/mL Susceptible CEFAZOLIN (UNCOMPLICATED UTIS ONLY) <=2 mcg/mL Susceptible CIPROFLOXACIN <=0.250 mcg/mL Susceptible GENTAMICIN <=2.000 mcg/mL Susceptible NITROFURANTOIN >64 mcg/mL Resistant PIPERACILLIN/TAZOBACTAM <=8.000 mcg/mL Susceptible TETRACYCLINE >8.000 mcg/mL Resistant TRIMETHOPRIM/SULFAMETHOX AZOLE <=2/38 mcg/mL Susceptible Abnormal [facility] Comment on above: Performed By: #### [id number] #### OMERO KNIGHT ([id number]) [facility] ([facility]) [address] [place], [place] [id number] Basic metabolic 2000 panelon 10-10-2023 Anion gap [Moles/Vol] 14 mmol/L 10 - 2 0 mmol/L [place] Calcium [Mass/Vol] 8.5 mg/dL Low 8.6 - 10. 3 mg/dL [place] Chloride [Moles/Vol] 88 mmol/L Low 98 - 10 7 mmol/L [place] CO2 [Moles/Vol] 27 mmol/L 21 - 32 mmol/L [place] Creatinine [Mass/Vol] 1.13 mg/dL High 0.50 - 1.05 mg/dL [place] GFR/1.73 sq M.predicted among non-blacks MDRD (S/P/Bld) [Vol rate/Area] 51 mL/min/{1.73_m2} Low - PINF [place] Comment on above: Calculations of hannah mated GFR are performed using the 2020 CKD-EPI Study Refit equation without the race variable for the IDMS-Traceable creatinine methods. https://jasn.asnjournals.org/content/early/ASN.34308 58009 Glucose [Mass/Vol] 180 mg/dL High 74 - 99 mg/dL [place] Interpretation and review of laboratory results Abnormal [place] Potassium [Moles/Vol] 3.8 mmol/L 3.5 - 5.3 mmol/L [place] Sodium [Moles/Vol] 125 mmol/L Low 136 - 145 mmol/L [place] Urea nitrogen [Mass/Vol] 33 mg/dL High 6 - 23 mg/dL [facility] Anion gap [Moles/Vol] 14 mmol/L Normal 10-20 [facility] Comment on above: Performed By: #### 2 341-6 #### OMERO KNIGHT ([id number]) [facility] ([facility]) [address] [place] [address] 44131 Calcium [Mass/Vol] 8.5 mg/dL Low 8.6-10.3 [facility] Comment on above: Performed By: #### 2 341-6 #### OMERO KNIGHT ([id number]) [facility] ([facility]) [facility] [place] [address] Chloride [Moles/Vol] 88 mmol/L Low 98-107 [facility] Comment on above: Performed By: #### 2 341-6 #### OMERO KNIGHT ([id number]) [facility] ([facility]) [address] [place] [address] CO2 [Moles/Vol] 27 mmol/L Normal 21-32 [facility] Comment on above: Performed By: #### 2 341-6 #### OMERO KNIGHT ([id number]) [facility] ([facility]) [facility] [place] [address] Creatinine [Mass/Vol] 1.13 mg/dL High 0.50-1.05 [facility] Comment on above: Performed By: #### 2 341-6 #### OMERO KNIGHT ([id number]) [facility] ([facility]) [address] [place] [address] 88870 Glomerular filtration rate/1.73 sq M.predicted 51 mL/min/1.73m*2 Low >60 [facility] Comment on above: Result Comment: Calc ulations of estimated GFR are performed using the 2020 CKD-EPI Study Refit equation without the race variable for the IDMS-Traceable creatinine methods. https://jasn.asnjournals.org/content/early//ASN.86676 54722 Performed By: #### 2 341-6 #### OMERO KNIGHT ([id number]) [facility] ([facility]) [facility] [place] [address] Glucose [Mass/Vol] 180 mg/dL High 74-99 [facility] Comment on above: Performed By: #### 2 341-6 #### OMERO KNIGHT ([id number]) [facility] ([facility]) [facility] [place] [address] Potassium [Moles/Vol] 3.8 mmol/L Normal 3.5-5.3 [facility] Comment on above: Performed By: #### 2 341-6 #### OMERO KNIGHT ([id number]) [facility] ([facility]) [facility] [place] [address] Sodium [Moles/Vol] 125 mmol/L Low 136-145 [facility] Comment on above: Performed By: #### 2 341-6 #### OMERO KNIGHT ([id number]) [facility] ([facility]) [address] [place] [address] Urea nitrogen [Mass/Vol] 33 mg/dL High 6-23 [facility] Comment on above: Performed By: #### 2 341-6 #### OMERO KNIGHT ([id number]) [facility] ([facility]) [address] [place] [address] Anion gap [Moles/Vol] 16 mmol/L 10 - 2 0 mmol/L [place] Calcium [Mass/Vol] 8.8 mg/dL 8.6 - 10. 3 mg/dL [place] Chloride [Moles/Vol] 89 mmol/L Low 98 - 10 7 mmol/L [place] CO2 [Moles/Vol] 24 mmol/L 21 - 32 mmol/L [place] Creatinine [Mass/Vol] 1.08 mg/dL High 0.50 - 1.05 mg/dL [place] GFR/1.73 sq M.predicted among non-blacks MDRD (S/P/Bld) [Vol rate/Area] 54 mL/min/{1.73_m2} Low - PINF [place] Comment on above: Calculations of hannah mated GFR are performed using the 2020 CKD-EPI Study Refit equation without the race variable for the IDMS-Traceable creatinine methods. https://jasn.asnjournals.org/content//ASN.58912 28062 Glucose [Mass/Vol] 202 mg/dL High 74 - 99 mg/dL [place] Interpretation and review of laboratory results Abnormal [place] Potassium [Moles/Vol] 3.9 mmol/L 3.5 - 5.3 mmol/L [place] Sodium [Moles/Vol] 125 mmol/L Low 136 - 145 mmol/L [place] Urea nitrogen [Mass/Vol] 32 mg/dL High 6 - 23 mg/dL [facility] Anion gap [Moles/Vol] 16 mmol/L Normal 10-20 [facility] Comment on above: Performed By: #### 2 341-6 #### OMERO KNIGHT ([id number]) [facility] ([facility]) [address] [place] [address] Calcium [Mass/Vol] 8.8 mg/dL Normal 8.6-10.3 [facility] Comment on above: Performed By: #### 2 341-6 #### OMERO KNIGHT ([id number]) [facility] ([facility]) [address] [place] [address] Chloride [Moles/Vol] 89 mmol/L Low 98-107 [facility] Comment on above: Performed By: #### 2 341-6 #### OMERO KNIGHT ([id number]) [facility] ([facility]) [address] [place] [address] 95273 CO2 [Moles/Vol] 24 mmol/L Normal 21-32 [facility] Comment on above: Performed By: #### 2 341-6 #### OMERO KNIGHT ([id number]) [facility] ([facility]) [address] [place] [address] 55452 Creatinine [Mass/Vol] 1.08 mg/dL High 0.50-1.05 [facility] Comment on above: Performed By: #### 2 341-6 #### OMERO KNIGHT ([id number]) [facility] ([facility]) [address] [place] [address] 45377 Glomerular filtration rate/1.73 sq M.predicted 54 mL/min/1.73m*2 Low >60 [facility] Comment on above: Result Comment: Calc ulations of estimated GFR are performed using the 2020 CKD-EPI Study Refit equation without the race variable for the IDMS-Traceable creatinine methods. https://jasn.asnjournals.org/content//ASN.40147 96131 Performed By: #### 2 341-6 #### OMERO KNIGHT ([id number]) [facility] ([facility]) [facility] [place] [address] Glucose [Mass/Vol] 202 mg/dL High 74-99 [facility] Comment on above: Performed By: #### 2 341-6 #### OMERO KNIGHT (56347) [facility] ([facility]) [facility] [place] [address] Potassium [Moles/Vol] 3.9 mmol/L Normal 3.5-5.3 [facility] Comment on above: Performed By: #### 2 341-6 #### OMERO KNIGHT ([id number]) [facility] ([facility]) [address] [place] [address] Sodium [Moles/Vol] 125 mmol/L Low 136-145 [facility] Comment on above: Performed By: #### 2 341-6 #### OMERO KNIGHT ([id number]) [facility] ([facility]) [facility] [place] [address] Urea nitrogen [Mass/Vol] 32 mg/dL High 6-23 [facility] Comment on above: Performed By: #### 2 341-6 #### OMERO KNIGHT ([id number]) [facility] ([facility]) [facility] [place] [address] Anion gap [Moles/Vol] 17 mmol/L [facility] Calcium [Mass/Vol] 9.3 mg/dL 8.6 - 10. 3 mg/dL [place] Chloride [Moles/Vol] 86 mmol/L Low 98 - 10 7 mmol/L [place] CO2 [Moles/Vol] 27 mmol/L 21 - 32 mmol/L [place] Creatinine [Mass/Vol] 1.09 mg/dL High 0.50 - 1.05 mg/dL [place] GFR/1.73 sq M.predicted among non-blacks MDRD (S/P/Bld) [Vol rate/Area] 53 mL/min/{1.73_m2} Low - PINF [place] Comment on above: Calculations of hannah mated GFR are performed using the 2020 CKD-EPI Study Refit equation without the race variable for the IDMS-Traceable creatinine methods. https://jasn.asnjournals.org/content/early/ASN.52823 92278 Glucose [Mass/Vol] 171 mg/dL High 74 - 99 mg/dL [place] Interpretation and review of laboratory results Abnormal [place] Potassium [Moles/Vol] 4.2 mmol/L 3.5 - 5.3 mmol/L [place] Sodium [Moles/Vol] 126 mmol/L Low 136 - 145 mmol/L [place] Urea nitrogen [Mass/Vol] 31 mg/dL High 6 - 23 mg/dL [facility] Anion gap [Moles/Vol] 17 mmol/L Normal [facility] Comment on above: Performed By: #### 2 4321-2 #### OMERO KNIGHT ([id number]) [facility] ([facility]) [address] [place] [address] 75588 Calcium [Mass/Vol] 9.3 mg/dL Normal 8.6-10.3 [facility] Comment on above: Performed By: #### 2 4321-2 #### OMERO KNIGHT ([id number]) [facility] ([facility]) [address] [place] [address] Chloride [Moles/Vol] 86 mmol/L Low 98-107 [facility] Comment on above: Performed By: #### 2 4321-2 #### OMERO KNIGHT ([id number]) [facility] ([facility]) [address] [place] [address] CO2 [Moles/Vol] 27 mmol/L Normal 21-32 [facility] Comment on above: Performed By: #### 2 4321-2 #### OMREO KNIGHT ([id number]) [facility] ([facility]) [facility] [place] [address] Creatinine [Mass/Vol] 1.09 mg/dL High 0.50-1.05 [facility] Comment on above: Performed By: #### 2 4321-2 #### OMERO KNIGHT (47098) [facility] ([facility]) [address] [place] [address] 71679 Glomerular filtration rate/1.73 sq M.predicted 53 mL/min/1.73m*2 Low >60 [facility] Comment on above: Result Comment: Calc ulations of estimated GFR are performed using the 2020 CKD-EPI Study Refit equation without the race variable for the IDMS-Traceable creatinine methods. https://jasn.asnjournals.org/content/early/ASN.72893 80290 Performed By: #### 2 4321-2 #### OMERO KNIGHT ([id number]) [facility] ([facility]) [address] [place] [address] 68171 Glucose [Mass/Vol] 171 mg/dL High 74-99 [facility] Comment on above: Performed By: #### 2 4321-2 #### OMERO KNIGHT ([id number]) [facility] ([facility]) [address] [place] [address] 93641 Potassium [Moles/Vol] 4.2 mmol/L Normal 3.5-5.3 [facility] Comment on above: Performed By: #### 2 4321-2 #### OMERO KNIGHT ([id number]) [facility] ([facility]) [address] [place] [address] 45439 Sodium [Moles/Vol] 126 mmol/L Low 136-145 [facility] Comment on above: Performed By: #### 2 4321-2 #### OMERO KNIGHT ([id number]) [facility] ([facility]) [address] [place] [address] 74853 Urea nitrogen [Mass/Vol] 31 mg/dL High 6-23 [facility] Comment on above: Performed By: #### 2 4321-2 #### OMERO KNIGHT ([id number]) [facility] ([facility]) [address] [place] [address] 52365 CBC W Auto Differential pane l (Bld)on 10-10-2023 Basophils (Bld) [#/Vol] 0.05 10*3/uL [place] Basophils/100 WBC (Bld) 0.3 % 0.0 - 2.0 % [place] Eosinophils (Bld) [#/Vol] 0.03 10*3/uL [place] Eosinophils/100 WBC (Bld) 0.2 % 0.0 - 6.0 % [place] Erythrocyte distribution width (RBC) [Ratio] 13.9 % 11.5 - 14.5 % [place] Hematocrit (Bld) [Volume fraction] 41.4 % 36.0 - 46.0 % [place] Hemoglobin (Bld) [Mass/Vol] 13.6 g/dL 12.0 - 16.0 g/dL [place] Immature granulocytes (Bld) [#/Vol] 0.23 10*3/uL [place] Immature granulocytes/100 WBC (Bld) 1.3 % High 0.0 - 0.9 % [place] Comment on above: Immature Granulocyte Count (IG) includes promyelocytes, myelocytes and metamyelocytes but does not include bands. Percent differential counts (%) should be interpreted in the context of the absolute cell counts (cells/UL). Interpretation and review of laboratory results Abnormal [place] Lymphocytes (Bld) [#/Vol] 0.76 10*3/uL Low [place] Lymphocytes/100 WBC (Bld) 4.4 % 13.0 - 44.0 % [place] MCH (RBC) [Entitic mass] 27.0 pg 26.0 - 34.0 pg [place] MCHC (RBC) [Mass/Vol] 32.9 g/dL 32.0 - 36.0 g/dL [place] MCV (RBC) [Entitic vol] 82 fL 80 - 100 fL [place] Monocytes (Bld) [#/Vol] 0.88 10*3/uL High [place] Monocytes/100 WBC (Bld) 5.1 % 2.0 - 10.0 % [place] Neutrophils (Bld) [#/Vol] 15.29 10*3/uL High [place] Comment on above: Percent differential counts (%) should be interpreted in the context of the absolute cell counts (cells/uL). Neutrophils/100 WBC (Bld) 88.7 % 40.0 - 80.0 % [place] Nucleated RBC/100 WBC (Bld) [Ratio] 0.0 % [place] Platelets (Bld) [#/Vol] 251 10*3/uL [place] RBC (Bld) [#/Vol] 5.03 10*6/uL [facility] WBC (Bld) [#/Vol] 17.2 10*3/uL High [facility] Basophils (Bld) [#/Vol] 0.05 x10*3/uL Normal 0.00-0.10 [facility] Comment on above: Performed By: #### 5 7021-8 #### OMERO KNIGHT ([id number]) [facility] ([facility]) [address] [place] [address] 09837 Basophils/100 WBC (Bld) 0.3 % Normal 0.0-2.0 [facility] Comment on above: Performed By: #### 5 7021-8 #### OMERO KNIGHT ([id number]) [facility] ([facility]) [address] [place] [address] 68976 Eosinophils (Bld) [#/Vol] 0.03 x10*3/uL Normal 0.00-0.40 [facility] Comment on above: Performed By: #### 5 7021-8 #### OMERO KNIGHT (10729) [facility] ([facility]) [address] [place] [address] 09394 Eosinophils/100 WBC (Bld) 0.2 % Normal 0.0-6.0 [facility] Comment on above: Performed By: #### 5 7021-8 #### OMERO KNIGHT (12714) [facility] ([facility]) [address] [place] [address] 69717 Erythrocyte distribution width (RBC) [Ratio] 13.9 % Normal 11.5-14.5 [facility] Comment on above: Performed By: #### 5 7021-8 #### OMERO KNIGHT (85688) [facility] ([facility]) [address] [place] [address] 34264 Hematocrit (Bld) [Volume fraction] 41.4 % Normal 36.0-46.0 [facility] Comment on above: Performed By: #### 5 7021-8 #### OMERO KNIGHT ([id number]) [facility] ([facility]) [address] [place] [address] 63468 Hemoglobin (Bld) [Mass/Vol] 13.6 g/dL Normal 12.0-16.0 [facility] Comment on above: Performed By: #### 5 7021-8 #### OMERO KNIGHT (60127) [facility] ([facility]) [address] [place] [address] 69769 Immature granulocytes (Bld) [#/Vol] 0.23 x10*3/uL Normal 0.00-0.50 [facility] Comment on above: Performed By: #### 5 7021-8 #### OMERO KNIGHT ([id number]) [facility] ([facility]) [address] [place] [address] 67399 Immature granulocytes/100 WBC (Bld) 1.3 % High 0.0-0.9 [facility] Comment on above: Result Comment: Martina ture Granulocyte Count (IG) includes promyelocytes, myelocytes and metamyelocytes but does not include bands. Percent differential counts (%) should be interpreted in the context of the absolute cell counts (cells/UL). Performed By: #### 5 7021-8 #### OMERO KNIGHT ([id number]) [facility] ([facility]) [address] [place] [address] 96356 Lymphocytes (Bld) [#/Vol] 0.76 x10*3/uL Low 0.80-3.00 [facility] Comment on above: Performed By: #### 5 7021-8 #### OMERO KNIGHT (17448) [facility] ([facility]) [address] [place] [address] 48487 Lymphocytes/100 WBC (Bld) 4.4 % Normal 13.0-44.0 [facility] Comment on above: Performed By: #### 5 7021-8 #### OMERO KNIGHT ([id number]) [facility] ([facility]) [address] [place] [address] MCH (RBC) [Entitic mass] 27.0 pg Normal 26.0-34.0 [facility] Comment on above: Performed By: #### 5 7021-8 #### OMERO KNIGHT ([id number]) [facility] ([facility]) [address] [place] [address] MCHC (RBC) [Mass/Vol] 32.9 g/dL Normal 32.0-36.0 [facility] Comment on above: Performed By: #### 5 7021-8 #### OMERO KNIGHT (76996) [facility] ([facility]) [address] [place] [address] MCV (RBC) [Entitic vol] 82 fL Normal 80-100 [facility] Comment on above: Performed By: #### 5 7021-8 #### OMERO KNIGHT ([id number]) [facility] ([facility]) [address] [place], [place] [address] Monocytes (Bld) [#/Vol] 0.88 x10*3/uL High 0.05-0.80 [facility] Comment on above: Performed By: #### 5 7021-8 #### OMERO KNIGHT ([id number]) [facility] ([facility]) [address] [place] [address] Monocytes/100 WBC (Bld) 5.1 % Normal 2.0-10.0 [facility] Comment on above: Performed By: #### 5 7021-8 #### OMERO KNIGHT (28752) [facility] ([facility]) [address] [place] [address] 53293 Neutrophils (Bld) [#/Vol] 15.29 x10*3/uL High 1.60-5.50 [facility] Comment on above: Result Comment: Perc ent differential counts (%) should be interpreted in the context of the absolute cell counts (cells/uL). Performed By: #### 5 7021-8 #### OMERO KNIGHT (29535) [facility] ([facility]) [address] [place] [address] Neutrophils/100 WBC (Bld) 88.7 % Normal 40.0-80.0 [facility] Comment on above: Performed By: #### 5 7021-8 #### OMERO KNIGHT (57912) [facility] ([facility]) [address] [place] [address] 62940 Nucleated RBC/100 WBC (Bld) [Ratio] 0.0 /100 WBCs Normal 0.0-0.0 [facility] Comment on above: Performed By: #### 5 7021-8 #### OMERO KNIGHT (34781) [facility] ([facility]) [address] [place] [address] 22035 Platelets (Bld) [#/Vol] 251 x10*3/uL Normal 150-450 [facility] Comment on above: Performed By: #### 5 7021-8 #### OMERO KNIGHT ([id number]) [facility] ([facility]) [address] [place] [address] 62150 RBC (Bld) [#/Vol] 5.03 x10*6/uL Normal 4.00-5.20 [facility] Comment on above: Performed By: #### 5 7021-8 #### OMERO KNIGHT ([id number]) [facility] ([facility]) [address] [place] [address] 79018 WBC (Bld) [#/Vol] 17.2 x10*3/uL High 4.4-11.3 [facility] Comment on above: Performed By: #### 5 7021-8 #### OMERO KNIGHT (46019) [facility] ([facility]) [address] [place] [address] 99850 CBC panel Auto (Bld)on 10-09 Erythrocyte distribution width (RBC) [Ratio] 13.9 % 11.5 - 14.5 % [place] Hematocrit (Bld) [Volume fraction] 36.1 % 36.0 - 46.0 % [place] Hemoglobin (Bld) [Mass/Vol] 11.8 g/dL Low 12.0 - 16.0 g/dL [place] Interpretation and review of laboratory results Abnormal [place] MCH (RBC) [Entitic mass] 26.9 pg 26.0 - 34.0 pg [place] MCHC (RBC) [Mass/Vol] 32.7 g/dL 32.0 - 36.0 g/dL [place] MCV (RBC) [Entitic vol] 82 fL 80 - 100 fL [place] Nucleated RBC/100 WBC (Bld) [Ratio] 0.0 % [place] Platelets (Bld) [#/Vol] 210 10*3/uL [place] RBC (Bld) [#/Vol] 4.39 10*6/uL [facility] WBC (Bld) [#/Vol] 26.0 10*3/uL High [facility] Erythrocyte distribution width (RBC) [Ratio] 13.9 % Normal 11.5-14.5 [facility] Comment on above: Performed By: #### 2 341-6 #### OMERO KNIGHT (89118) [facility] ([facility]) [address] [place] [address] 80877 Hematocrit (Bld) [Volume fraction] 36.1 % Normal 36.0-46.0 [facility] Comment on above: Performed By: #### 2 341-6 #### OMERO KNIGHT (76584) [facility] ([facility]) [address] [place] [address] 74200 Hemoglobin (Bld) [Mass/Vol] 11.8 g/dL Low 12.0-16.0 [facility] Comment on above: Performed By: #### 2 341-6 #### OMERO KNIGHT (38244) [facility] ([facility]) [address] [place] [address] 85514 MCH (RBC) [Entitic mass] 26.9 pg Normal 26.0-34.0 [facility] Comment on above: Performed By: #### 2 341-6 #### OMERO KNIGHT ([id number]) [facility] ([facility]) [address] [place] [address] 73487 MCHC (RBC) [Mass/Vol] 32.7 g/dL Normal 32.0-36.0 [facility] Comment on above: Performed By: #### 2 341-6 #### OMERO KNIGHT (52186) [facility] ([facility]) [address] [place] [address] MCV (RBC) [Entitic vol] 82 fL Normal 80-100 [facility] Comment on above: Performed By: #### 2 341-6 #### OMERO KNIGHT (52613) [facility] ([facility]) [address] [place] [address] Nucleated RBC/100 WBC (Bld) [Ratio] 0.0 /100 WBCs Normal 0.0-0.0 [facility] Comment on above: Performed By: #### 2 341-6 #### OMERO KNIGHT ([id number]) [facility] ([facility]) [address] [place] [address] Platelets (Bld) [#/Vol] 210 x10*3/uL Normal 150-450 [facility] Comment on above: Performed By: #### 2 341-6 #### OMERO KNIGHT ([id number]) [facility] ([facility]) [address] [place] [address] RBC (Bld) [#/Vol] 4.39 x10*6/uL Normal 4.00-5.20 [facility] Comment on above: Performed By: #### 2 341-6 #### OMERO KNIGHT (26030) [facility] ([facility]) [address] [place] [address] WBC (Bld) [#/Vol] 26.0 x10*3/uL High 4.4-11.3 [facility] Comment on above: Performed By: #### 2 341-6 #### OMERO KNIGHT ([id number]) [facility] ([facility]) [address] [place] [address] CT ABDOMEN PELVIS WO IV CONT [facility] 10-10-2023 CT ABDOMEN PELVIS WO IV CONTRAST Interpreted By: Haidary, Ahmad, STUDY: CT ABDOMEN PELVIS WO IV CONTRAST; 10/10/2023 2:45 am INDICATION: Signs/Symptoms:back pain w/o injury. COMPARISON: CT scan of the abdomen 01/05/2020 ACCESSION NUMBER(S): [id number] ORDERING CLINICIAN: FLAVIO AQUINO TECHNIQUE: Axial noncontrast CT images of the [...] Normal caliber. GALLBLADDER: Status post cholecystectomy. PANCREAS: Zejn-[id number] fatty atrophy of the pancreas. SPLEEN: Splenomegaly [...] Vlad Araya 10/10/2023 3:17 AM Dictation workstation: [id number] [facility] CT Abdomen WO contraston Several nonobstructi ng [...] Vlad Araya 10/10/2023 3:17 AM Dictation workstation: [id number] Interpreted By: Vlad Schneider, STUDY: CT ABDOMEN PELVIS WO IV CONTRAST; 10/10/2023 2:45 am INDICATION: Signs/Symptoms:back pain w/o injury. COMPARISON: CT scan of the abdomen 01/05/2020 ACCESSION NUMBER(S): [id number] ORDERING CLINICIAN: FLAVIO AQUINO TECHNIQUE: Axial noncontrast CT images of the [...] Normal caliber. GALLBLADDER: Status post cholecystectomy. PANCREAS: Fizj-nw-kskcswqw fatty atrophy of the pancreas. SPLEEN: Splenomegaly [...] hip osteoarthrosis. Interbody fusion at L4-5. [facility] Vlad Araya MD - 10/10/2023 Interpreted By: Vlad Araya, STUDY: CT ABDOMEN PELVIS WO IV CONTRAST; 10/10/2023 2:45 am INDICATION: Signs/Symptoms:back pain w/o injury. COMPARISON: CT scan of the abdomen 01/05/2020 ACCESSION NUMBER(S): [id number] ORDERING CLINICIAN: FLAVIO AQUINO TECHNIQUE: Axial noncontrast CT images of the [...] Normal caliber. GALLBLADDER: Status post cholecystectomy. PANCREAS: Pwzd-qy-limtrjce fatty atrophy of the pancreas. SPLEEN: Splenomegaly [...] Vlad Araya 10/10/2023 3:17 AM Dictation workstation: [id number] [place] Work Phone: [place] Work Phone: Radiology Study observation (narrative) [place] Work Phone: ECG 12-LEADon 10-10-2023 ECG 12-LEAD Ventricular Rate 112 QRS Duration 106 Q-T Interval 338 QTC Calculation(Bazett) 461 R [place] -62 T [place] 104 QRS Count 19 Q Onset 208 T Offset 377 QTC [place] 416 Diagnosis Atrial fibrillation with rapid ventricular response with premature ventricular or aberrantly conducted complexes Left anterior fascicular block Possible Anterior infarct , age undetermined ST & T wave abnormality, consider lateral ischemia Abnormal ECG See ED provider note for full interpretation and clinical correlation Confirmed by Sophie Florian ([id number]) on 10/18/2023 8:16:18 PM Normal [facility] Glucose Test strip manual (B ld) [Mass/Vol]on 10-10-2023 Glucose [Mass/Vol] 178 mg/dL High 74 - 99 mg/dL [place] Interpretation and review of laboratory results Abnormal [facility] Glucose [Mass/Vol] 178 mg/dL High 74-99 [facility] Comment on above: Performed By: #### 2 341-6 #### OMERO KNIGHT ([id number]) [facility] ([facility]) [address] [place] [address] 42357 Glucose [Mass/Vol] 209 mg/dL High 74 - 99 mg/dL [place] Interpretation and review of laboratory results Abnormal [facility] Glucose [Mass/Vol] 209 mg/dL High 74-99 [facility] Comment on above: Performed By: #### 2 341-6 #### OMERO KNIGHT ([id number]) [facility] ([facility]) [address] [place] [address] 07103 Glucose [Mass/Vol] 187 mg/dL High 74 - 99 mg/dL [place] Interpretation and review of laboratory results Abnormal [facility] Glucose [Mass/Vol] 187 mg/dL High 74-99 [facility] Comment on above: Performed By: #### 2 341-6 #### OMERO KNIGHT ([id number]) [facility] ([facility]) [address] [place] [address] 45772 Glucose [Mass/Vol] 215 mg/dL High 74 - 99 mg/dL [place] Interpretation and review of laboratory results Abnormal [facility] Glucose [Mass/Vol] 215 mg/dL High 74-99 [facility] Comment on above: Performed By: #### 2 341-6 #### OMERO KNIGHT ([id number]) [facility] ([facility]) [address] [place] [address] 02593 Glucose [Mass/Vol] 174 mg/dL High 74 - 99 mg/dL [place] Comment on above: RN/ NOTIFIED Interpretation and review of laboratory results Abnormal [facility] Glucose [Mass/Vol] 174 mg/dL High 74-99 [facility] Comment on above: Result Comment: RN/Shaheen Licea NOTIFIED Performed By: #### 2 341-6 #### OMERO KNIGHT ([id number]) [facility] ([facility]) [facility] [place] [address] Lavender Topon 10-10-2023 Extra Tube Hold for add-ons. [facility] Comment on above: Auto resulted. [place] Natriuretic peptide B [Mass/ Vol]on 10-10-2023 Interpretation and review of laboratory results Abnormal [place] Natriuretic peptide B (Bld) [Mass/Vol] 225 pg/mL High 0 - 99 pg/mL [place] <100 pg/mL - Heart failure unlikely 100-299 pg/mL - Intermediate probability of acute heart failure exacerbation. Correlate with clinical context and patient history. >=300 pg/mL - Heart Failure likely. Correlate with clinical context and patient history. BNP testing is performed using different testing methodology at [facility] than at other [facility] hospital. Direct result comparisons should only be made within the same method. [facility] Natriuretic peptide B (Bld) [Mass/Vol] 225 pg/mL High 0-99 [facility] Comment on above: Order Comment: <100 pg/mL - Heart failure unlikely 100-299 pg/mL - Intermediate probability of acute heart failure exacerbation. Correlate with clinical context and patient history. >=300 pg/mL - Heart Failure likely. Correlate with clinical context and patient history. BNP testing is performed using different testing methodology at [facility] than at other [facility]. Direct result comparisons should only be made within the same method. Performed By: #### 3 0934-4 #### OMERO KNIGHT ([id number]) [facility] ([facility]) [facility] [place] [address] Tropinin I.cardiac panel Hig h sensitivity methodon 10-10-2023 Interpretation and review of laboratory results Normal [place] Less than 99th percentile of normal range [...] performed using a different testing methodology at [facility] than at other [facility]. Direct result comparisons should only be made within the same method. [facility] Interpretation and review of laboratory results Normal [place] Less than 99th percentile of normal range [...] performed using a different testing methodology at [facility] than at other [facility]. Direct result comparisons should only be made within the same method. [facility] Troponin I, High Sensitivity , Initialon 10-10-2023 Tropinin I.cardiac panel High sensitivity method 12 ng/L 0 - 13 ng/L [place] Troponin I.cardiac panelon 0 10-10-2023 Tropinin I.cardiac panel High sensitivity method 12 ng/L Normal 0-13 [facility] Comment on above: Order Comment: Less [...] performed using a different testing methodology at [facility] than at other [facility]. Direct result comparisons should only be made within the same method. Performed By: #### 8 9577-1 #### OMERO KNIGHT ([id number]) [facility] ([facility]) [facility] [place] [address] Tropinin I.cardiac panel High sensitivity method 12 ng/L Normal 0-13 [facility] Comment on above: Order Comment: Less [...] performed using a different testing methodology at [facility] than at other [facility]. Direct result comparisons should only be made within the same method. Performed By: #### 8 9577-1 #### OMERO KNIGHT ([id number]) [facility] ([facility]) [address] [place] [address] 07271 Troponin, High Sensitivity, 1 Houron 10-10-2023 Tropinin I.cardiac panel High sensitivity method 12 ng/L 0 - 13 ng/L [place] Urinalysis complete W Reflex Culture panel (U)Ordered By: Diana Barros on 10-10-2023 Appearance (U) Turbid Abnormal Clear [place] Bilirubin (U) [Mass/Vol] Negative NEGATIVE [place] Color (U) Yellow Light-Yellow , Yellow, Dark-Yellow [place] Glucose Auto test strip (U) [Mass/Vol] Normal Normal mg/dL [place] Interpretation and review of laboratory results Abnormal [place] Ketones (U) [Mass/Vol] 10 (1+) Abnormal NEGAT JORGE mg/dL [place] Leukocyte esterase Auto test strip Ql (U) 500 Ray/ L Abnormal NEGATIVE [facility] Nitrite Auto test strip Ql (U) 2+ Abnormal NEGATIVE [place] pH (U) 8.0 [pH] 5.0, 5.5, 6.0, 6.5, 7.0, 7.5, 8.0 [place] Protein (U) [Mass/Vol] 70 (1+) Abnormal NEGAT JORGE, 10 (TRACE), 20 (TRACE) mg/dL [place] RBC (U) [#/Vol] 0.1 (1+) Abnormal NEGATIVE [facility] Specific gravity (U) [Rel density] 1.027 1.005 - 1.035 [place] Urobilinogen (U) [Mass/Vol] 3 (1+) Abnormal Normal mg/dL [place] Comment on above: Some pigments and me dications may cause a false positive urobilinogen. [place] Urinalysis complete W Reflex Culture panel (U)on 10-10-2023 Appearance (U) Turbid Normal Clear [facility] Comment on above: Performed By: #### 5 8077-9 #### OMERO KNIGHT ([id number]) [facility] ([facility]) [address] [place] [address] Bilirubin (U) [Mass/Vol] Negative Normal NEGATIVE [facility] Comment on above: Performed By: #### 5 8077-9 #### OMERO KNIGHT ([id number]) [facility] ([facility]) [address] [place] [address] 25368 Color (U) Yellow Normal Light-Yellow , Yellow, Dark-Yellow [facility] Comment on above: Performed By: #### 5 8077-9 #### OMERO KNIGHT ([id number]) [facility] ([facility]) [address] [place] [address] 41097 Glucose Auto test strip (U) [Mass/Vol] Normal Normal Normal [facility] Comment on above: Performed By: #### 5 8077-9 #### OMERO KNIGHT ([id number]) [facility] ([facility]) [address] [place] [address] Ketones (U) [Mass/Vol] 10 (1+) Abnormal NEGATIVE [facility] Comment on above: Performed By: #### 5 8077-9 #### OMERO KNIGHT ([id number]) [facility] ([facility]) [address] [place] [address] 25858 Leukocyte esterase Auto test strip Ql (U) 500 Ray/???L Abnormal NEGATIVE [facility] Comment on above: Performed By: #### 5 8077-9 #### OMERO KNIGHT ([id number]) [facility] ([facility]) [address] [place] [address] 71959 Nitrite Auto test strip Ql (U) 2+ Abnormal NEGATIVE [facility] Comment on above: Performed By: #### 5 8077-9 #### OMERO KNIGHT ([id number]) [facility] ([facility]) [address] [place] [address] 39377 pH (U) 8.0 [pH] Normal 5.0, 5.5, 6.0, 6.5, 7.0, 7.5, 8.0 [facility] Comment on above: Performed By: #### 5 8077-9 #### OMERO KNIGHT ([id number]) [facility] ([facility]) [address] [place] [address] 22183 Protein (U) [Mass/Vol] 70 (1+) Abnormal NEGAT JORGE, 10 (TRACE), 20 (TRACE) [facility] Comment on above: Performed By: #### 5 8077-9 #### OMERO KNIGHT ([id number]) [facility] ([facility]) [address] [place] [address] 42716 RBC (U) [#/Vol] 0.1 (1+) Abnormal NEGATIVE [facility] Comment on above: Performed By: #### 5 8077-9 #### OMERO KNIGHT (89459) [facility] ([facility]) [address] [place] [address] 51177 Specific gravity (U) [Rel density] 1.027 Normal 1.005-1.035 [facility] Comment on above: Performed By: #### 5 8077-9 #### OMERO KNIGHT ([id number]) [facility] ([facility]) [address] [place] [address] Urobilinogen (U) [Mass/Vol] 3 (1+) Abnormal Normal [facility] Comment on above: Result Comment: Some pigments and medications may cause a false positive urobilinogen. Performed By: #### 5 8077-9 #### OMERO KNIGHT ([id number]) [facility] ([facility]) [address] [place] [address] Urinalysis microscopic panel Auto Ql (U)on 10-10-2023 Bacteria Auto (Urine sed) [#/Area] 1+ Abnormal NONE SEEN /HPF [place] Crystals.amorphous Computer assisted (U) [#/Area] 1+ NONE, 1+, 2+ /HPF [place] Epithelial cells.squamous Auto (Urine sed) [#/Area] 1-9 (SPARSE) Reference range not established. /HPF [place] Interpretation and review of laboratory results Abnormal [place] Mucus Auto (Urine sed) [#/Area] FEW Reference range not established. /LPF [place] RBC Auto (Urine sed) [#/Area] 3-5 NONE, 1-2, 3-5 /HPF [place] WBC Auto (Urine sed) [#/Area] 21-50 Abnormal 1-5, NONE /HPF [facility] Bacteria Auto (Urine sed) [#/Area] 1+ /HPF Abnormal NONE SEEN [facility] Comment on above: Performed By: #### 2 341-6 #### OMERO KNIGHT ([id number]) [facility] ([facility]) [address] [place] [address] Crystals.amorphous Computer assisted (U) [#/Area] 1+ /HPF Normal NONE, 1+, 2+ [facility] Comment on above: Performed By: #### 2 341-6 #### OMERO KNIGHT ([id number]) [facility] ([facility]) [address] [place] [address] 04781 Epithelial cells.squamous Auto (Urine sed) [#/Area] 1-9 (SPARSE) Normal Reference range not established. [facility] Comment on above: Performed By: #### 2 341-6 #### OMERO KNIGHT ([id number]) [facility] ([facility]) [address] [place] [address] 47967 Mucus Auto (Urine sed) [#/Area] FEW Normal Reference range not established. [facility] Comment on above: Performed By: #### 2 341-6 #### OMERO KNIGHT ([id number]) [facility] ([facility]) [address] [place] [address] 31039 RBC Auto (Urine sed) [#/Area] 3-5 Normal NONE, 1-2, 3-5 [facility] Comment on above: Performed By: #### 2 341-6 #### OMERO KNIGHT ([id number]) [facility] ([facility]) [address] [place] [address] WBC Auto (Urine sed) [#/Area] 21-50 Abnormal 1-5, NONE [facility] Comment on above: Performed By: #### 2 341-6 #### OMERO KNIGHT ([id number]) [facility] ([facility]) [address] [place] [address] XR CHEST 1 VIEWon 10-10-2023 XR CHEST 1 VIEW Interpreted By: Vlad Schneider, STUDY: XR CHEST 1 VIEW; 10/10/2023 2:03 am INDICATION: Signs/Symptoms:weakness. COMPARISON: Chest x-ray 09/08/2022 ACCESSION NUMBER(S): [id number] ORDERING CLINICIAN: FLAVIO AQUINO FINDINGS: Multiple overlying leads are present. CARDIOMEDIASTINAL SILHOUETTE: Cardiomediastinal silhouette is stable in size and configuration. LUNGS: No consolidation, pleural effusion or pneumothorax. ABDOMEN: No remarkable upper abdominal findings. BONES: Multilevel degenerative changes of the spine. Bilateral shoulder osteoarthrosis. IMPRESSION: No acute cardiopulmonary process. MACRO: None Signed by: Vlad Araya 10/10/2023 2:11 AM Dictation workstation: [id number] Normal [facility] XR Chest Single viewon 10-09 No acute cardiopulmo nary process. MACRO: None Signed by: Vlad Araya 10/10/2023 2:11 AM Dictation workstation: [id number] MMODAL Interpreted By: Vlad Schneider, STUDY: XR CHEST 1 VIEW; 10/10/2023 2:03 am INDICATION: Signs/Symptoms:weakness. COMPARISON: Chest x-ray 09/08/2022 ACCESSION NUMBER(S): [id number] ORDERING CLINICIAN: FLAVIO AQUINO FINDINGS: Multiple overlying leads are present. CARDIOMEDIASTINAL [...] Signs/Symptoms:weakness. COMPARISON: Chest x-ray 09/08/2022 ACCESSION NUMBER(S): [id number] ORDERING CLINICIAN: FLAVIO AQUINO FINDINGS: Multiple overlying leads are present. CARDIOMEDIASTINAL SILHOUETTE: Cardiomediastinal silhouette is stable in size and configuration. LUNGS: No consolidation, pleural effusion or pneumothorax. ABDOMEN: No remarkable upper abdominal findings. BONES: Multilevel degenerative changes of the spine. Bilateral shoulder osteoarthrosis. IMPRESSION: No acute cardiopulmonary process. MACRO: None Signed by: Vlad Araya 10/10/2023 2:11 AM Dictation workstation: [id number] [place] Work Phone: Radiology Study observation (narrative) [place] Work Phone: XR Chest Single viewOrdered By: lVad Araya on 10-10-2023 [place] Work Phone: ALKALINE PHOSPHATASE, ISOENZ YMESon 08-03-2023 ALP [Catalytic activity/Vol] 132 U/L High 40-120 [facility] Comment on above: Performed By: #### 1 9123-9 #### OMERO KNIGHT ([id number]) [facility] ([facility]) [address] [place] [address] 05433 ALP Bone [Catalytic activity/Vol] 42 U/L Normal 0-55 [facility] Comment on above: Performed By: #### 1 9123-9 #### OMERO KNIGHT ([id number]) [facility] ([facility]) [address] [place] [address] 70777 ALP Liver [Catalytic activity/Vol] 90 U/L Normal 0-94 [facility] Comment on above: Result Comment: INTE RPRETIVE INFORMATION: Alk-Phosphatase Liver Calc Bone Specific Alkaline Phosphatase (3847746) and 5'-nucleotidase (2397644) may be useful in identifying disorders of bone and liver, respectively. Performed By: #### 1 9123-9 #### OMERO KNIGHT ([id number]) [facility] ([facility]) [address] [place] [address] 61827 ALP Other [Catalytic activity/Vol] 0 U/L Normal [facility] Comment on above: Result Comment: Perf ormed By: [employer] [address] [place] [address] 79192 Compound Filler: Shayan Licona MD, PhD CLIA Number: [id number] Performed By: #### 1 9123-9 #### OMERO KNIGHT ([id number]) [facility] ([facility]) [address] [place] [address] 90993 Gamma glutamyl transferaseon 08-03-2023 Gamma glutamyl transferase [Catalytic activity/Vol] 26 U/L Normal 5-55 [facility] Comment on above: Performed By: #### 1 9123-9 #### OMERO KNIGHT ([id number]) [facility] ([facility]) [address] [place] [address] 87152 Hepatic function 2000 panelo n 08-03-2023 Albumin BCP dye [Mass/Vol] 4.1 g/dL Normal 3.4-5.0 [facility] Comment on above: Performed By: #### 1 9123-9 #### OMERO KNIGHT ([id number]) [facility] ([facility]) [address] [place] [address] ALP [Catalytic activity/Vol] 113 U/L Normal 33-136 [facility] Comment on above: Performed By: #### 1 9123-9 #### OMERO KNIGHT ([id number]) [facility] ([facility]) [address] [place] [address] ALT With P-5'-P [Catalytic activity/Vol] 12 U/L Normal 7-45 [facility] Comment on above: Result Comment: Madhavi ents treated with Sulfasalazine may generate falsely decreased results for ALT. Performed By: #### 1 9123-9 #### OMERO KNIGHT ([id number]) [facility] ([facility]) [address] [place] [address] AST With P-5'-P [Catalytic activity/Vol] 19 U/L Normal 9-39 [facility] Comment on above: Performed By: #### 1 9123-9 #### OMERO KNIGHT (01681) [facility] ([facility]) [address] [place] [address] Bilirubin [Mass/Vol] 0.5 mg/dL Normal 0.0-1.2 [facility] Comment on above: Performed By: #### 1 9123-9 #### OMERO KNIGHT ([id number]) [facility] ([facility]) [address] [place] [address] 03689 Bilirubin.direct [Mass/Vol] 0.1 mg/dL Normal 0.0-0.3 [facility] Comment on above: Performed By: #### 1 9123-9 #### OMERO KNIGHT ([id number]) [facility] ([facility]) [address] [place] [address] 12505 Protein [Mass/Vol] 7.1 g/dL Normal 6.4-8.2 [facility] Comment on above: Performed By: #### 1 9123-9 #### OMERO KNIGHT ([id number]) [facility] ([facility]) [address] [place] [address] 35872 XR FOOT RIGHT 3+ VIEWSon XR FOOT RIGHT 3+ VIEWS Interpreted By: Conner Burk, STUDY: XR FOOT RIGHT 3+ VIEWS; ; 06/10/2023 6:08 pm INDICATION: Signs/Symptoms:TRAUMA. COMPARISON: None. ACCESSION NUMBER(S): [id number] ORDERING CLINICIAN: FLAVIO AQUINO FINDINGS: Three radiographs of the right foot [...] Conner Burk 06/10/2023 6:36 PM Dictation workstation: [id number] [facility] XR Foot - right 3 Viewson 1. Marked soft tissu e swelling from likely hematoma overlies the dorsum of the foot, along the metatarsals, without evidence of displaced fracture, traumatic malalignment, or radiopaque foreign body. 2. Degenerative changes of the right foot with joint space narrowing and osteophytosis. MACRO: None Signed by: Conner Burk 06/10/2023 6:36 PM Dictation workstation: [id number] MMODAL Interpreted By: Conner Burk, STUDY: XR FOOT RIGHT 3+ VIEWS; ; 06/10/2023 6:08 pm INDICATION: Signs/Symptoms:TRAUMA. COMPARISON: None. ACCESSION NUMBER(S): [id number] ORDERING CLINICIAN: FLAVIO AQUINO FINDINGS: Three radiographs of the right foot [...] pm INDICATION: Signs/Symptoms:TRAUMA. COMPARISON: None. ACCESSION NUMBER(S): [id number] ORDERING CLINICIAN: FLAVIO AQUINO FINDINGS: Three radiographs of the right foot [...] Conner Burk 06/10/2023 6:36 PM Dictation workstation: [id number] [place] Work Phone: Radiology Study observation (narrative) [place] Work Phone: XR Foot - right 3 ViewsOrder ed By: Conner Burk on 06-10-2023 [place] Work Phone: ALKALINE PHOSPHATASE, ISOENZ YMESon 05-21-2023 ALP [Catalytic activity/Vol] 158 U/L High 40-120 [facility] Comment on above: Performed By: #### 1 9123-9 #### OMERO KNIGHT (47083) [facility] ([facility]) [address] [place] [address] ALP Bone [Catalytic activity/Vol] 60 U/L High 0-55 [facility] Comment on above: Performed By: #### 1 9123-9 #### OMERO KNIGHT ([id number]) [facility] ([facility]) [address] [place] [address] ALP Liver [Catalytic activity/Vol] 98 U/L High 0-94 [facility] Comment on above: Result Comment: INTE RPRETIVE INFORMATION: Alk-Phosphatase Liver Calc Bone Specific Alkaline Phosphatase (9126333) and 5'-nucleotidase (6770885) may be useful in identifying disorders of bone and liver, respectively. Performed By: #### 1 9123-9 #### OMERO KNIGHT (64885) [facility] ([facility]) [address] [place] [address] ALP Other [Catalytic activity/Vol] 0 U/L Normal [facility] Comment on above: Result Comment: Perf ormed By: [employer] [address] [place] [address] 54938 Compound Filler: Shayan Licona MD, PhD CLIA Number: [id number] Performed By: #### 1 9123-9 #### OMERO KNIGHT (60329) [facility] ([facility]) [address] [place] [address] CBC panel Auto (Bld)on 05-21 Erythrocyte distribution width (RBC) [Ratio] 20.9 % High 11.5-14.5 [facility] Comment on above: Performed By: #### 5 8410-2 #### OMERO KNIGHT (25532) [facility] ([facility]) [address] [place] [address] Hematocrit (Bld) [Volume fraction] 36.6 % Normal 36.0-46.0 [facility] Comment on above: Performed By: #### 5 8410-2 #### OMERO KNIGHT (18706) [facility] ([facility]) [address] [place] [address] 68652 Hemoglobin (Bld) [Mass/Vol] 11.0 g/dL Low 12.0-16.0 [facility] Comment on above: Performed By: #### 5 8410-2 #### OMERO KNIGHT (32983) [facility] ([facility]) [address] [place] [address] 57771 MCH (RBC) [Entitic mass] 24.9 pg Low 26.0-34.0 [facility] Comment on above: Performed By: #### 5 8410-2 #### OMERO KNIGHT (75336) [facility] ([facility]) [address] [place] [address] 73100 MCHC (RBC) [Mass/Vol] 30.1 g/dL Low 32.0-36.0 [facility] Comment on above: Performed By: #### 5 8410-2 #### OMERO KNIGHT (20888) [facility] ([facility]) [address] [place] [address] 34266 MCV (RBC) [Entitic vol] 83 fL Normal 80-100 [facility] Comment on above: Performed By: #### 5 8410-2 #### OMERO KNIGHT ([id number]) [facility] ([facility]) [address] [place] [address] 03090 Nucleated RBC/100 WBC (Bld) [Ratio] 0.0 /100 WBCs Normal 0.0-0.0 [facility] Comment on above: Performed By: #### 5 8410-2 #### OMERO KNIGHT (54499) [facility] ([facility]) [address] [place] [address] 41410 Platelets (Bld) [#/Vol] 261 x10*3/uL Normal 150-450 [facility] Comment on above: Performed By: #### 5 8410-2 #### OMERO KNIGHT ([id number]) [facility] ([facility]) [address] [place] [address] 47017 RBC (Bld) [#/Vol] 4.41 x10*6/uL Normal 4.00-5.20 [facility] Comment on above: Performed By: #### 5 8410-2 #### OMERO KNIGHT (99720) [facility] ([facility]) [address] [place] [address] 23228 WBC (Bld) [#/Vol] 10.2 x10*3/uL Normal 4.4-11.3 [facility] Comment on above: Performed By: #### 5 8410-2 #### OMERO KNIGHT (27864) [facility] ([facility]) [facility] [place] [address] Calcidiolon 05-21-2023 25-hydroxyvitamin D3 [Mass/Vol] 21 ng/mL Low 30-100 [facility] Comment on above: Order Comment: Defic iency: < 20 ng/mlInsufficiency: 20-29 ng/mlSufficiency: 30-100 ng/mlThis assay accurately quantifies the sum of Vitamin D3, 25-Hydroxy and Vitamin D2,25-Hydroxy. Performed By: #### 1 9123-9 #### OMERO KNIGHT ([id number]) [facility] ([facility]) [address] [place] [address] Comprehensive metabolic 2000 panelon 05-21-2023 Albumin BCP dye [Mass/Vol] 3.6 g/dL Normal 3.4-5.0 [facility] [facility] Comment on above: Performed By: #### 2 4323-8 #### OMERO KNIGHT ([id number]) [facility] ([facility]) [address] [place] [address] ALP [Catalytic activity/Vol] 140 U/L High 33-136 [facility] Comment on above: Performed By: #### 2 4323-8 #### OMERO KNIGHT ([id number]) [facility] ([facility]) [address] [place] [address] ALT With P-5'-P [Catalytic activity/Vol] 8 U/L Normal 7-45 [facility] Comment on above: Result Comment: Madhavi ents treated with Sulfasalazine may generate falsely decreased results for ALT. Performed By: #### 2 4323-8 #### OMERO KNIGHT (29393) [facility] ([facility]) [address] [place] [address] 58991 Anion gap [Moles/Vol] 12 mmol/L Normal 10-20 [facility] Comment on above: Performed By: #### 2 4323-8 #### OMERO KNIGHT (43526) [facility] ([facility]) [address] [place] [address] AST With P-5'-P [Catalytic activity/Vol] 16 U/L Normal 9-39 [facility] Comment on above: Performed By: #### 2 4323-8 #### OMERO KNIGHT ([id number]) [facility] ([facility]) [address] [place] [address] 09788 Bilirubin [Mass/Vol] 0.3 mg/dL Normal 0.0-1.2 [facility] Comment on above: Performed By: #### 2 4323-8 #### OMERO KNIGHT ([id number]) [facility] ([facility]) [address] [place] [address] 16155 Calcium [Mass/Vol] 9.2 mg/dL Normal 8.6-10.3 [facility] Comment on above: Performed By: #### 2 4323-8 #### OMERO KNIGHT (43790) [facility] ([facility]) [address] [place] [address] 15582 Chloride [Moles/Vol] 100 mmol/L Normal 98-107 [facility] Comment on above: Performed By: #### 2 4323-8 #### OMERO KNIGHT (40658) [facility] ([facility]) [address] [place] [address] 99169 CO2 [Moles/Vol] 30 mmol/L Normal 21-32 [facility] Comment on above: Performed By: #### 2 4323-8 #### OMERO KNIGHT ([id number]) [facility] ([facility]) [address] [place] [address] 51038 Creatinine [Mass/Vol] 1.00 mg/dL Normal 0.50-1.05 [facility] Comment on above: Performed By: #### 2 4323-8 #### OMERO KNIGHT ([id number]) [facility] ([facility]) [address] [place] [address] 41308 Glomerular filtration rate/1.73 sq M.predicted 59 mL/min/1.73m*2 Low >60 [facility] Comment on above: Result Comment: Calc ulations of estimated GFR are performed using the 2020 CKD-EPI Study Refit equation without the race variable for the IDMS-Traceable creatinine methods. https://jasn.asnjournals.org/content//ASN.89282 50824 Performed By: #### 2 4323-8 #### OMERO KNIGHT (85803) [facility] ([facility]) [address] [place] [address] 78098 Glucose [Mass/Vol] 119 mg/dL High 74-99 [facility] Comment on above: Performed By: #### 2 4323-8 #### OMERO KNIGHT (49171) [facility] ([facility]) [address] [place] [address] 67819 Potassium [Moles/Vol] 4.4 mmol/L Normal 3.5-5.3 [facility] Comment on above: Performed By: #### 2 4323-8 #### OMERO KNIGHT (81852) [facility] ([facility]) [address] [place] [address] 46074 Protein [Mass/Vol] 6.4 g/dL Normal 6.4-8.2 [facility] Comment on above: Performed By: #### 2 4323-8 #### OMERO KNIGHT (20811) [facility] ([facility]) [address] [place] [address] 22569 Sodium [Moles/Vol] 138 mmol/L Normal 136-145 [facility] Comment on above: Performed By: #### 2 4323-8 #### OMERO KNIGHT ([id number]) [facility] ([facility]) [address] [place] [address] 46857 Urea nitrogen [Mass/Vol] 15 mg/dL Normal 6-23 [facility] Comment on above: Performed By: #### 2 4323-8 #### OMERO KNIGHT (49334) [facility] ([facility]) [address] [place] [address] 63620 Ferritinon 05-21-2023 Ferritin [Mass/Vol] 34 ng/mL Normal 8-150 [facility] Comment on above: Performed By: #### 2 276-4 #### OMERO KNIGHT ([id number]) [facility] ([facility]) [address] [place] [address] 48828 Iron and Iron binding capaci ty panelon 05-21-2023 Iron [Mass/Vol] 97 ug/dL Normal 35-150 [facility] Comment on above: Performed By: #### 5 0190-8 #### OMERO KNIGHT (47089) [facility] ([facility]) [address] [place] [address] 27920 Iron binding capacity [Mass/Vol] 346 ug/dL Normal 240-445 [facility] Comment on above: Performed By: #### 5 0190-8 #### OMERO KNIGHT ([id number]) [facility] ([facility]) [address] [place] [address] 83069 Iron binding capacity.unsaturated [Mass/Vol] 249 ug/dL Normal 110-370 [facility] Comment on above: Performed By: #### 5 0190-8 #### OMERO KNIGHT (85330) [facility] ([facility]) [address] [place], [place] [address] Iron saturation [Mass fraction] 28 % Normal 25-45 [facility] Comment on above: Performed By: #### 0190-8 #### OMEOR KNIGHT (07113) [facility] ([facility]) [address] [place], [place] [address] CBC panel Auto (Bld)on 03-06 Erythrocyte distribution width (RBC) [Ratio] 15.1 % High 11.5-14.5 [facility] Comment on above: Performed By: #### 5 8410-2 #### OMERO KNIGHT (13756) [facility] ([facility]) [address] [place] [address] 57235 Hematocrit (Bld) [Volume fraction] 32.6 % Low 36.0-46.0 [facility] Comment on above: Performed By: #### 5 8410-2 #### OMERO KNIGHT (23445) [facility] ([facility]) [address] [place] [address] 77815 Hemoglobin (Bld) [Mass/Vol] 9.3 g/dL Low 12.0-16.0 [facility] Comment on above: Performed By: #### 5 8410-2 #### OMERO KNIGHT (41604) [facility] ([facility]) [address] [place] [address] 66248 MCH (RBC) [Entitic mass] 22.0 pg Low 26.0-34.0 [facility] Comment on above: Performed By: #### 5 8410-2 #### OMERO KNIGHT (58608) [facility] ([facility]) [address] [place] [address] 12321 MCHC (RBC) [Mass/Vol] 28.5 g/dL Low 32.0-36.0 [facility] Comment on above: Performed By: #### 5 8410-2 #### OMERO KNIGHT ([id number]) [facility] ([facility]) [address] [place] [address] 75913 MCV (RBC) [Entitic vol] 77 fL Low 80-100 [facility] Comment on above: Performed By: #### 5 8410-2 #### OMERO KNIGHT (98510) [facility] ([facility]) [address] [place] [address] 76594 Nucleated RBC/100 WBC (Bld) [Ratio] 0.0 /100 WBCs Normal 0.0-0.0 [facility] Comment on above: Performed By: #### 5 8410-2 #### OMERO KNIGHT (36271) [facility] ([facility]) [address] [place] [address] 07070 Platelets (Bld) [#/Vol] 310 x10*3/uL Normal 150-450 [facility] Comment on above: Performed By: #### 5 8410-2 #### OMERO KNIGHT (68796) [facility] ([facility]) [address] [place] [address] 35473 RBC (Bld) [#/Vol] 4.22 x10*6/uL Normal 4.00-5.20 [facility] Comment on above: Performed By: #### 5 8410-2 #### OMERO KNIGHT ([id number]) [facility] ([facility]) [address] [place] [address] 50517 WBC (Bld) [#/Vol] 12.2 x10*3/uL High 4.4-11.3 [facility] Comment on above: Performed By: #### 5 8410-2 #### OMERO KNIGHT (76363) [facility] ([facility]) [address] [place] [address] Cobalaminson 03-06-2023 Cobalamin (Vitamin B12) [Mass/Vol] 352 pg/mL Normal 211-911 [facility] Comment on above: Performed By: #### 2 132-9 #### OMERO KNIGHT (09131) [facility] ([facility]) [address] [place] [address] Comprehensive metabolic 2000 panelon 03-06-2023 Albumin BCP dye [Mass/Vol] 3.8 g/dL Normal 3.4-5.0 [facility] Comment on above: Performed By: #### 2 4323-8 #### OMERO KNIGHT (12015) [facility] ([facility]) [address] [place] [address] 26583 ALP [Catalytic activity/Vol] 141 U/L High 33-136 [facility] Comment on above: Performed By: #### 2 4323-8 #### OMERO KNIGHT (99011) [facility] ([facility]) [address] [place] [address] 27361 ALT With P-5'-P [Catalytic activity/Vol] 9 U/L Normal 7-45 [facility] Comment on above: Result Comment: Madhavi ents treated with Sulfasalazine may generate falsely decreased results for ALT. Performed By: #### 2 4323-8 #### OMERO KNIGHT (27279) [facility] ([facility]) [address] [place] [address] 17601 Anion gap [Moles/Vol] 12 mmol/L Normal 10-20 [facility] Comment on above: Performed By: #### 2 4323-8 #### OMERO KNIGHT (35512) [facility] ([facility]) [address] [place] [address] [place] [address] AST With P-5'-P [Catalytic activity/Vol] 16 U/L Normal 9-39 [facility] Comment on above: Performed By: #### 2 4323-8 #### OMERO KNIGHT (09509) [facility] ([facility]) [address] [place] [address] 94982 Bilirubin [Mass/Vol] 0.3 mg/dL Normal 0.0-1.2 [facility] Comment on above: Performed By: #### 2 4322-8 #### OMERO KNIGHT (76240) [facility] ([facility]) [address] [place] [address] 10566 Calcium [Mass/Vol] 9.1 mg/dL Normal 8.6-10.3 [facility] Comment on above: Performed By: #### 2 4322-8 #### OMERO KNIGHT (37495) [facility] ([facility]) [address] [place] [address] 83132 Chloride [Moles/Vol] 103 mmol/L Normal 98-107 [facility] Comment on above: Performed By: #### 2 432-8 #### OMERO KNIGHT (45315) [facility] ([facility]) [address] [place] [address] 17671 CO2 [Moles/Vol] 28 mmol/L Normal 21-32 [facility] Comment on above: Performed By: #### 2 3-8 #### OMERO KNIGHT ([id number]) [facility] ([facility]) [address] [place] [address] 79491 Creatinine [Mass/Vol] 0.83 mg/dL Normal 0.50-1.05 [facility] Comment on above: Performed By: #### 2 4322-8 #### OMERO KNIGHT (06341) [facility] ([facility]) [address] [place] [address] 58509 GFR/1.73 sq M.predicted MDRD (S/P/Bld) [Vol rate/Area] 74 mL/min/1.73m*2 Normal >60 [facility] Comment on above: Result Comment: Calc ulations of estimated GFR are performed using the 2020 CKD-EPI Study Refit equation without the race variable for the IDMS-Traceable creatinine methods. https://jasn.asnjournals.org/content/early/ASN.75407 65786 Performed By: #### 2 4323-8 #### OMERO KNIGHT (30097) [facility] ([facility]) [facility] [place] [address] Glucose [Mass/Vol] 143 mg/dL High 74-99 [facility] Comment on above: Performed By: #### 2 4323-8 #### OMERO KNIGHT (92719) [facility] ([facility]) [address] [place] [address] 27995 Potassium [Moles/Vol] 4.3 mmol/L Normal 3.5-5.3 [facility] Comment on above: Performed By: #### 2 4323-8 #### OMERO KNIGHT (32265) [facility] ([facility]) [address] [place] [address] 10366 Protein [Mass/Vol] 6.9 g/dL Normal 6.4-8.2 [facility] Comment on above: Performed By: #### 2 4323-8 #### OMERO KNIGHT (83397) [facility] ([facility]) [address] [place] [address] 86481 Sodium [Moles/Vol] 139 mmol/L Normal 136-145 [facility] Comment on above: Performed By: #### 2 4323-8 #### OMERO KNIGHT (35054) [facility] ([facility]) [address] [place] [address] 16766 Urea nitrogen [Mass/Vol] 22 mg/dL Normal 6-23 [facility] Comment on above: Performed By: #### 2 4323-8 #### OMERO KNIGHT (01383) [facility] ([facility]) [facility] [place] [address] HbA1c (Bld) [Mass fraction]o n 03-06-2023 Average glucose Estimated from glycated hemoglobin (Bld) [Mass/Vol] 160 mg/dL Normal Not Established [facility] Comment on above: Order Comment: Diagn osis of Diabetes-Adults Non-Diabetic: < or = 5.6% Increased risk for developing diabetes: 5.7-6.4% Diagnostic of diabetes: > or = 6.5% Monitoring of Diabetes Age (y)....................... Therapeutic Goal (%) Adults: >18.........................<7.0 Pediatrics: 13-18...................<7.5 Pediatrics: 7-12....................<8.0 Pediatrics: 0-6..................... 7.5-8.5 [place] [employer]. Diabetes Care 33(S1)Apr 2009 Performed By: #### 4 548-4 #### JAMIL EUGENE ([id number]) [facility] ([facility]) [address] [place] [address] Hemoglobin A1c/Hemoglobin.to zac 03-06-2023 HbA1c (Bld) [Mass fraction] 7.2 % High see below [facility] Comment on above: Order Comment: Diagn osis of Diabetes-Adults Non-Diabetic: < or = 5.6% Increased risk for developing diabetes: 5.7-6.4% Diagnostic of diabetes: > or = 6.5% Monitoring of Diabetes Age (y)....................... Therapeutic Goal (%) Adults: >18.........................<7.0 Pediatrics: 13-18...................<7.5 Pediatrics: 7-12....................<8.0 Pediatrics: 0-6..................... 7.5-8.5 [place] [employer]. Diabetes Care 33(S1), Apr 2009 Performed By: #### 4 548-4 #### OMERO KNIGHT ([id number]) [facility] ([facility]) [facility] [place] [address] Lipid 1996 panelon 3 Cholesterol [Mass/Vol] 125 mg/dL Normal 0-199 [facility] Comment on above: Result Comment: Age [...] By: #### 2 4331-1 #### OMERO KNIGHT (38072) [facility] ([facility]) [address] [place] [address] 19920 Cholesterol in HDL [Mass/Vol] 55.0 mg/dL Normal [facility] Comment on above: Result Comment: Age Very Low Low Normal High 0-19 Y < 35 < 40 40-45 ---- 20-24 Y ---- < 40 >45 ---- >24 Y ---- < 40 40-60 >60 Performed By: #### 2 4331-1 #### OMERO KNIGHT (55714) [facility] ([facility]) [facility] [place] [address] Cholesterol in LDL [Mass/Vol] 48 mg/dL Normal <=99 [facility] Comment on above: Result Comment: Near Borderline AGE Desirable Optimal High High Very High 0-19 Y 0 - 109 --- 110-129 >/= 130 ---- 20-24 Y 0 - 119 --- 120-159 >/= 160 ---- >24 Y 0 - 99 100-129 130-159 160-189 >/=190 Performed By: #### 2 4331-1 #### OMERO KNIGHT (02527) [facility] ([facility]) [facility] [place] [address] Cholesterol in VLDL [Mass/Vol] 22 mg/dL Normal 0-40 [facility] Comment on above: Performed By: #### 2 4331-1 #### OMERO KNIGHT ([id number]) [facility] ([facility]) [address] [place] [address] 68197 CHOLESTEROL/HDL RATIO 2.3 Normal [facility] Comment on above: Result Comment: Ref Values Desirable < 3.4 High Risk > 5.0 Performed By: #### 2 4331-1 #### OMERO KNIGHT (53239) [facility] ([facility]) [address] [place] [address] 94397 NON HDL CHOLESTEROL 70 mg/dL Normal 0-149 [facility] Comment on above: Result Comment: Age Desirable Borderline High High Very High 0-19 Y 0 - 119 120 - 144 >/= 145 >/= 160 20-24 Y 0 - 149 150 - 189 >/= 190 ---- >24 Y 30 mg/dL above LDL Cholesterol goal Performed By: #### 2 4331-1 #### OMERO KNIGHT (88142) [facility] ([facility]) [address] [place] [address] 64941 Triglyceride [Mass/Vol] 111 mg/dL Normal 0-149 [facility] Comment on above: Result Comment: Age Desirable [...] By: #### 2 4331-1 #### OMERO KNIGHT ([id number]) [facility] ([facility]) [address] [place] [address] Magnesiumon 03-06-2023 Magnesium [Mass/Vol] 1.30 mg/dL Low 1.60-2.40 [facility] Comment on above: Performed By: #### 1 9123-9 #### OMERO KNIGHT (47561) [facility] ([facility]) [address] [place] [address] CORONAVIRUS 2019 BY PCRon SARS-CoV-2 (COVID-19) RNA SEFERINO+probe Ql (Unsp spec) Not detected Normal Not Detected [facility] Comment on above: Result Comment: . This test has received FDA Emergency Use Authorization (EUA) and has been verified by [facility]. This test is only authorized for the duration of time that circumstances exist to justify the authorization of the emergency use of in vitro diagnostic tests for the detection of SARS-CoV-2 virus and/or diagnosis of COVID-19 infection under section 564(b)(1) of the Act, 21 U.S.C. 360bbb-3(b)(1), unless the authorization is terminated or revoked sooner. [facility] is certified under CLIA-88 as qualified to perform high complexity testing. Testing is performed in the [facility] laboratory located at [address] [place] [address]. SARS-CoV-2/Flu/RSV Multiplex Test: Fact sheet for providers: https://www.fda.gov/media/809703/download Fact sheet for patients: https://www.fda.gov/media/494567/download Performed By: #### C OV19 #### [place] [address] Lab Specimen Source Nasal, Nasopharyngeal Normal [facility] Comment on above: Performed By: #### C OV19 #### [place] [address] Covid 19 Resultson 06-09-202 3 SARS-CoV-2 (COVID-19) RNA SEFERINO+probe Ql (Unsp [...] You may also be contacted by the [facility] to see if any of your close [...] or Naproxen (Aleve) can also be used. Jwft-dqz-dwabsbr cough and cold medicines can be used according to the instructions on the package. Some kfvn-scb-apgkzhj medicines also contain acetaminophen. Make sure you [...] water are not available, use alcohol-based hand account development executive. Avoid touching your eyes, nose, and mouth [...] 24 rai (more content not included)... Normal [facility] Daily Progress Note-General Internal Medicineon 09-15-2022 Daily Progress Note-General Internal Medicine Service: General Internal Medicine Subjective Data: DARYN GUILLERMO is a 76 year old Female who is Hospital Day # 8. Additional Information: Patient seen and examined at bedside. Patient doing well. No complaints today. Getting ready to go to rehab today. Objective Data: Objective Information: T PRBPMAPSpO2 [id number]/5994% Date/Time09/15 8: 8: 8: 8: 8:00 Range(36.5C - 36.8C ) (78 - 87 ) (16 - 16 ) (94 - 141 )/ (59 - 82 ) (94% - 97% ) Pain reported at 09/15 8:45: 0 = None ---- Intake and Output ----- Mn/Dy/Year TimeIntakeOutputNet Sep 14, 2022 10:00 [id number] Sep 14, 2022 2:00 [id number] The Intake and Output Totals for the last 24 hours are: IntakeOutputNet [id number] Physical Exam by System: Constitutional: Well developed, [...] Spontaneous/Phasic Peroneal Yes None PTV Yes None [address]83[address] Don Rico MD Final [facility] Venous Duplex Ultrasound for DVT [Sep 11 2022 7:14PM] Conclusion: CONCLUSIONS: 1. Left ventricular systolic function is normal with a 55% estimated ejection fraction. 2. The left atrium is severely dilated. 3. Findings appear consistent with mild aortic stenosis. QUANTITATIVE DATA SUMMARY: 2D MEASUREMENTS: Normal Ranges: Ao Root d: 2.80 cm (2.0-3.7cm) LAs: 4.30 cm (2.7-4 (more content not included)... Normal [facility] GLUCOSE-POCTon 09-15-2022 Glucose [Mass/Vol] 141 mg/dL High 74 - 99 [facility] Comment on above: Performed By: #### B MP #### [place] [address] Glucose [Mass/Vol] 165 mg/dL High 74 - 99 [facility] Comment on above: Performed By: #### G ROLLY #### [address] [address] BASIC METABOLIC PANELon 06-0 Anion gap [Moles/Vol] 10 mmol/L Normal 10 - 20 [facility] Comment on above: Performed By: #### B MP ####[address] [address] Calcium [Mass/Vol] 8.4 mg/dL Low 8.6 - 10.3 [facility] Comment on above: Performed By: #### B MP ####[address] [address] Chloride [Moles/Vol] 96 mmol/L Low 98 - 107 [facility] Comment on above: Performed By: #### B MP ####[address] [address] Creatinine [Mass/Vol] 0.96 mg/dL Normal 0.50 - 1.05 [facility] Comment on above: Performed By: #### B MP ####[address] [address] GFR/1.73 sq M.predicted among non-blacks MDRD (S/P/Bld) [Vol rate/Area] 62 mL/min/{1.73_m2} Normal >90 [facility] Comment on above: Result Comment: CALC ULATIONS OF ESTIMATED GFR ARE PERFORMED USING THE 2020 CKD-EPI STUDY REFIT EQUATION WITHOUT THE RACE VARIABLE FOR THE IDMS-TRACEABLE CREATININE METHODS. https://jasn.asnjournals.org/content/early//ASN.93938 26313 Performed By: #### B MP ####[address] [address] Glucose [Mass/Vol] 153 mg/dL High 74 - 99 [facility] Comment on above: Performed By: #### B MP ####[address] [address] HCO3 (Bld) [Moles/Vol] 31 mmol/L Normal 21 - 32 [facility] Comment on above: Performed By: #### B MP ####[address] [address] Potassium [Moles/Vol] 3.6 mmol/L Normal 3.5 - 5.3 [facility] Comment on above: Performed By: #### B MP ####[address] [address] Sodium [Moles/Vol] 133 mmol/L Low 136 - 145 [facility] Comment on above: Performed By: #### B MP ####[address] [address] Urea nitrogen [Mass/Vol] 13 mg/dL Normal 6 - 23 [facility] Comment on above: Performed By: #### B MP ####[place] [address] CBCon 09-14-2022 Erythrocyte distribution width (RBC) [Ratio] 17.1 % High 11.5 - 14.5 [facility] Comment on above: Performed By: #### B MP #### [address] [address] Hematocrit (Bld) [Volume fraction] 28.4 % Low 36.0 - 46.0 [facility] Comment on above: Performed By: #### B MP #### [address] [address] Hemoglobin (Bld) [Mass/Vol] 8.1 g/dL Low 12.0 - 16.0 [facility] Comment on above: Performed By: #### B MP #### [address] [address] MCHC (RBC) [Mass/Vol] 28.5 g/dL Low 32.0 - 36.0 [facility] Comment on above: Performed By: #### B MP #### [address] [address] MCV (RBC) [Entitic vol] 71 fL Low 80 - 100 [facility] Comment on above: Performed By: #### B MP #### [place] [id number] Platelets (Bld) [#/Vol] 310 10*3/uL Normal 150 - 450 [facility] Comment on above: Performed By: #### B MP #### [address] [address] RBC 4.01 x10E12/L Normal 4.00 - 5.20 [facility] Comment on above: Performed By: #### B MP #### [address] [address] WBC (Bld) [#/Vol] 11.6 10*3/uL High 4.4 - 11.3 [facility] [facility] Comment on above: Performed By: #### B MP #### [address] [address] Consult - Psychiatryon 09-14 Consult - Psychiatry Time In/Out: Time In: 14-Sep-2022 10:25 Time Out: 14-Sep-2022 10:50 Referral Information: Consult requested by (Attending Name): Franky Reason: Depression and Anxiety History of Present Illness: Admission Reason: Depression and anxiety HPI: 76 yo woman with HX of HTN, hyperlipidemia, Type II DM, a-fib, lymphedema, non-ambulatory status, who was admitted to medical unit 6.. due to L thigh cellulitis, UTI and [...] Tona. Also, patient's Shad is now at [facility] for medical admission. Patient describes how she stopped walking 3 years ago when she shut down emotionally after Jojo and Tona left. States she can stand, but due to balance issues, is fearful of falling. Describes system wherein Srinivas and Shad assist her with wheelchair, bathing, toileting, etc. 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 Social History: Lives in [...] Suicidal Ideas Objective: Objective Information: T PRBPMAPSpO2 Value36.06266606/6596% Date/Time09/14 7:536/8 7:538 7:538 7:5309/14 7:53 Range(36.3C - 36.8C ) [...] Times a (more content not included)... Normal [facility] Discharge [id number] Discharge Profile2 Discharge Orders: Anticipated Discharge Date: Anticipated Discharge [id number] Anticipated Discharge Time14:48 Problem List: Additional Dx: [...] shower. Diet: Dietlow cholesterol, low fat Fluid [id number] to 2000 ml Hospital Course (Home Care/Gold Form): Hospital Course: Hospital Course: include significant abnormal lab values DARYN GUILLERMO is a 76 year old Female With [...] individual's condition. Attending ProviderAngelique Clarke Attending Provider [id number] Therapy Orders: Occupational Therapy OrdersEval and Treat ([facility]) Physical Therapy OrdersEval and Treat ([facility]) Speech Therapy OrdersEval and Treat ([facility]) Provider Follow Up: Physician To Follow at Skilled/RehabAttending Physician at Skilled/Rehab Provider FINAL REVIEW of Orders: Final Review: Final Review of Medication Reconciliation and Orders Completedby Physician Reviewing ProviderAngelique Clarke MD at 15-Sep-2022 12:31:20 Appointments: Follow-Up Appointment 01: Physician/Dept/ServicePr [facility] Care Physician/Facility Physician Reason for Referralpost hospital stay Call to Schedule in1 week Follow-Up Appointment 02: Physician/Dept/ServiceDr Rupal Pickard Reason for ReferralPsychotherapy/Ps ychiatry Call to Schedule inAs needed. O (more content not included)... Normal [facility] GLUCOSE-POCTon 09-14-2022 Glucose [Mass/Vol] 172 mg/dL High 74 - 99 [facility] Comment on above: Performed By: #### C OV19 #### [address] [address] Glucose [Mass/Vol] 204 mg/dL High 74 - 99 [facility] Comment on above: Performed By: #### C OV19 #### [address] [address] Glucose [Mass/Vol] 166 mg/dL High 74 - 99 [facility] Comment on above: Performed By: #### L ACT #### [address] [address] Glucose [Mass/Vol] 144 mg/dL High 74 - 99 [facility] Comment on above: Performed By: #### G ROLLY #### [address] [address] Nutrition Therapy-Assessment - Physician consult for assessmon 09-14-2022 Nutrition Therapy-Assessment - Physician consult for assessm Assessment Subjective/Objective: Note Type: Assessment Physician consult for assessment and recommendations Note Authored by: Registered Dietitian Processing Mgr Pager Number: Dochalo Ronn Note: The patient is a 76 year [...] None ---- Intake and Output ----- Mn/Dy/Year TimeIntakeOutcrownpoint healthcare facilityNet Sep 14, 2022 6:00 [id number] Sep 13, 2022 10:00 [id number] Sep 13, 2022 2:00 [id number] The Intake and Output Totals for the last 24 hours are: IntakeOutputNet [id number] Height/Weight: Height in cm: 167.5 centimeter(s) Weight [...] 13-18 <7.5 7-12 <8.0 0- 6 7.5-8.5 [place] [employer]. Diabetes Care 33(S1), Apr 2009. 09-Sep-2022 04:54, Hemoglobin A1C, Level Hemoglobin A1C, Level7.6 Diagnosis of Diabetes-Adults Non-Diabetic: < or = 5.6% Increased risk for developing diabetes: 5.7-6.4% Diagnostic of diabetes: > or = 6.5% . Monitoring of Diabetes Age (y) Therapeutic Goal (%) Adults: >18 <7.0 Pediatrics: 13-18 <7.5 7-12 <8.0 0- 6 7.5-8.5 [place] [employer]. Diabetes Care 33(S1), Apr 2009. [...] ml/day 90gram Carb/meal, 60gram Carb evening snack (4301-9966 calories), 10-Sep-2022 (more content not included)... [facility] Order Reconciliationon 09-14 Order Reconciliation Page 1 [...] 3.375 gram/Iso-osmoti (more content not included)... Normal [facility] Rehab Eoqv-hm-rexyfduuckp Rehab Zvbf-ze-svxshzfkj Rehab: Info: Disciplinephysical pediatric physical therapy assistant Mode of Treatmentco-treatment; physical therapy; occupational therapy Time IN12:56 Time OUT13:30 Total Treatment [id number] Patient in ... at end of sessionbed, [...] to supine Supine to Sit to Supine [place] (Bed Mobility)moderate assist (50% patient effort); 2 [...] upon arrival, agreeable to therapy. Co-treated with PLOW SHAKER this date. Mod assist x1-2 with supine [...] bed mobility and transfers with greater ease/safety. Electronic Signatures: Laurent MckeonCOMMUNICATION CENTER COORDINATOR) (Signed 14-Sep-2022 13:50) Authored: Info, Vision/Cognition, Mobility/Tone, Motor, Sensory, Outcomes Tools, Short Term Goals, Outcome Summary James Mendez (PT) (Signed 19-Sep-2022 08:46) Co-Signer: Info, Vision/Cognition, Mobility/Tone, Motor, Sensory, Outcomes Tools, Short Term Goals, Outcome Summary Last Updated: 19-Sep-2022 08:46 by James Mendez (PT) [facility] Rehab Deud-re-kwlumphmo Rehab: Info: Disciplineoccupational pediatric physical therapy assistant Mode of Treatmentco-treatment; occupational therapy; physical therapy Time IN12:54 Time OUT13:32 Total Treatment [id number] Total Minutes CommentFull 38 min co-tx with Laurent MANDUJANO to maximize performance levels to reach [...] to sit; sit to supine Roll Left [place] (Bed Mobility)independent Bledrs-pa-Ozo [place] (Bed Mobility)independent Xje-at-Gifebk [place] (Bed Mobility)minimum assist (75% patient effort); Min A to lift leg onto bed Assistive Device (Bed Mobility)bed rails Transfer Assessment/Interventions sit to stand transfer; stand to sit transfer Sit-Stand [place] (Transfers)Sit to stand x 3 trials standing 10, 15 then 20 seconds. Mod>max A x 2 with/ verbal cues to stand tall. Each sit to stand improving; maximum assist (25% patient effort); 2 person assist Sit-Stand Assistive Device (Transfers)gait belt; walker, front-wheeled Stand-Sit [place] (Transfers)moderate assist (50% patient effort) Stand-Sit Assistive Device (Transfers)gait belt; walker, front-wheeled Impairments Impacting Function (Mobility)balance; strength; range of motion ADL: BADL Assessment/Interventionl ower body dressing [place] Level (Lower Body Dressing)don; socks; modified independence [...] teethnone Eating Mealsnone AM-PAC (OT) Total Score17 Box Covering Machine Operator Goals: Transfer: Established Transfer: Transfer Type Goaltoilet Transfer: [place] Level Goalminimum assist (75% patients effort) Transfer: [...] Lower Body Dressing: Established Lower Body Dressing: [place] Level Goalindependent Lower Body Dressing: Time Frame for Goal2 wks Lower Body Dressing: Goal Outcomegoal ongoing; Patient educated with sock aide this , able to complete with 1x demo Toileting: Established Toileting: [place] Level Goalminimum assist (75% patients effort) Toileting: Time Frame for Goal2 wks Toileting: Goal Outcomegoal ongoing Miscellaneous: Established [id number] Miscellaneous: Goal DetailsPt will demonstrate dynamic reaching [...] Info, Vision/Cogni (more content not included)... Normal [facility] BASIC METABOLIC PANELon 06-0 Anion gap [Moles/Vol] 12 mmol/L Normal 10 - 20 [facility] Comment on above: Performed By: #### G ROLLY #### [address] [address] Calcium [Mass/Vol] 8.5 mg/dL Low 8.6 - 10.3 [facility] Comment on above: Performed By: #### G ROLLY #### [address] [address] Chloride [Moles/Vol] 96 mmol/L Low 98 - 107 [facility] Comment on above: Performed By: #### G ROLLY #### [address] [address] Creatinine [Mass/Vol] 0.88 mg/dL Normal 0.50 - 1.05 [facility] Comment on above: Performed By: #### G ROLLY #### [address] [address] GFR/1.73 sq M.predicted among non-blacks MDRD (S/P/Bld) [Vol rate/Area] 69 mL/min/{1.73_m2} Normal >90 [facility] Comment on above: Result Comment: CALC ULATIONS OF ESTIMATED GFR ARE PERFORMED USING THE 2020 CKD-EPI STUDY REFIT EQUATION WITHOUT THE RACE VARIABLE FOR THE IDMS-TRACEABLE CREATININE METHODS. https://jasn.asnjournals.org/content//ASN.19111 [address] Performed By: #### G ROLLY #### [address] [address] Glucose [Mass/Vol] 146 mg/dL High 74 - 99 [facility] Comment on above: Performed By: #### G ROLLY #### [address] [address] HCO3 (Bld) [Moles/Vol] 30 mmol/L Normal 21 - 32 [facility] Comment on above: Performed By: #### G ROLLY #### [address] [address] Potassium [Moles/Vol] 3.6 mmol/L Normal 3.5 - 5.3 [facility] Comment on above: Performed By: #### G ROLLY #### [address] [address] Sodium [Moles/Vol] 134 mmol/L Low 136 - 145 [facility] Comment on above: Performed By: #### G ROLLY #### [address] [address] Urea nitrogen [Mass/Vol] 13 mg/dL Normal 6 - 23 [facility] Comment on above: Performed By: #### G ROLLY #### [address] [address] CBC AND DIFFERENTIALon 09-13 % AUTOMATED IMMATURE GRAN 1.0 % High 0.0 - 0.9 [facility] Comment on above: Result Comment: Martina ture Granulocyte Count (IG) includes promyelocytes, myelocytes and metamyelocytes but does not include bands. Percent differential counts (%) should be interpreted in the context of the absolute cell counts (cells/L). Performed By: #### C BCDF #### [address] [address] Basophils (Bld) [#/Vol] 0.06 10*3/uL Normal 0.00 - 0.10 [facility] Comment on above: Performed By: #### C BCDF #### [address] [address] Basophils/100 WBC (Bld) 0.5 % Normal 0.0 - 2.0 [facility] Comment on above: Performed By: #### C BCDF #### [address] [address] Eosinophils (Bld) [#/Vol] 0.50 10*3/uL High 0.00 - 0.40 [facility] Comment on above: Performed By: #### C BCDF #### [address] [address] Eosinophils/100 WBC (Bld) 4.3 % Normal 0.0 - 6.0 [facility] Comment on above: Performed By: #### C BCDF #### [address] [address] Erythrocyte distribution width (RBC) [Ratio] 17.2 % High 11.5 - 14.5 [facility] Comment on above: Performed By: #### C BCDF #### [address] [address] Hematocrit (Bld) [Volume fraction] 28.3 % Low 36.0 - 46.0 [facility] Comment on above: Performed By: #### C BCDF #### [address] [address] Hemoglobin (Bld) [Mass/Vol] 8.1 g/dL Low 12.0 - 16.0 [facility] Comment on above: Performed By: #### C BCDF #### [address] [address] Lymphocytes (Bld) [#/Vol] 2.73 10*3/uL Normal 0.80 - 3.00 [facility] Comment on above: Performed By: #### C BCDF #### [address] [address] Lymphocytes/100 WBC (Bld) 23.3 % Normal 13.0 - 44.0 [facility] Comment on above: Performed By: #### C BCDF #### [address] [address] MCHC (RBC) [Mass/Vol] 28.6 g/dL Low 32.0 - 36.0 [facility] Comment on above: Performed By: #### C BCDF #### [address] [address] MCV (RBC) [Entitic vol] 70 fL Low 80 - 100 [facility] Comment on above: Performed By: #### C BCDF #### [address] [address] Monocytes (Bld) [#/Vol] 0.91 10*3/uL High 0.05 - 0.80 [facility] Comment on above: Performed By: #### C BCDF #### [address] [address] Monocytes/100 WBC (Bld) 7.8 % Normal 2.0 - 10.0 [facility] Comment on above: Performed By: #### C BCDF #### [address] [address] Neutrophils (Bld) [#/Vol] 7.41 10*3/uL High 1.60 - 5.50 [facility] Comment on above: Result Comment: Perc ent differential counts (%) should be interpreted in the context of the absolute cell counts (cells/L). Performed By: #### C BCDF #### [address] [address] Neutrophils/100 WBC (Bld) 63.1 % Normal 40.0 - 80.0 [facility] Comment on above: Performed By: #### C BCDF #### [address] [address] Platelets (Bld) [#/Vol] 290 10*3/uL Normal 150 - 450 [facility] Comment on above: Performed By: #### C BCDF #### [address] [address] RBC 4.02 x10E12/L Normal 4.00 - 5.20 [facility] Comment on above: Performed By: #### C BCDF #### [address] [address] WBC (Bld) [#/Vol] 11.7 10*3/uL High 4.4 - 11.3 [facility] Comment on above: Performed By: #### C BCDF #### [address] [address] Daily Progress Note-General Internal Medicineon 09-13-2022 Daily Progress Note-General Internal Medicine Service: General Internal Medicine Subjective Data: DARYN GUILLERMO is a 76 year old Female who is Hospital Day # 6. Additional Information: Patient seen and examined at bedside. She is doing better. No complaints today. Her cellulitis has improved. Patient cried constantly yesterday. Per PT OT assessment patient is extremely depressed to move around and make progress. Objective Data: Objective Information: T PRBPMAPSpO2 Value36.0559181/6698% Date/Time09/13 10: 10: 10: 10: 10:00 Range(35.9C - 36.6C ) (59 - 74 ) (18 - 20 ) (95 - 113 )/ (59 - 74 ) (95% - 98% ) Pain reported at 09/13 9:50: 0 = None ---- Intake and Output ----- Mn/Dy/[facility] Sep 13, 2022 2:00 [id number] Sep 13, 2022 6:00 [id number] Sep 12, 2022 10:00 [id number] The Intake and Output Totals for the last 24 hours are: IntakeOutcrownpoint healthcare facilityNet [id number] Physical Exam by System: Constitutional: Well developed, [...] Spontaneous/Phasic Peroneal Yes None PTV Yes None [id number] Don Rico MD Final [facility] Venous Duplex Ultrasound for DVT [Sep 11 2022 7:14PM] (more content not included)... Normal [facility] GLUCOSE-[facility] 09-13-2022 Glucose [Mass/Vol] 222 mg/dL High 74 - [address] [place] [address] Comment on above: Performed By: #### U ARFX #### [address] [address] Glucose [Mass/Vol] 160 mg/dL High - [address] [place] [address] Comment on above: Performed By: #### L ACT #### [address] [address] Glucose [Mass/Vol] 220 mg/dL High [address] [place] [address] Comment on above: Performed By: #### B MP #### [address] [address] Glucose [Mass/Vol] 142 mg/dL High 74 - [address] [place] [address] Comment on above: Performed By: #### L ACT #### [address] [address] OT Evaluation v2-occupationa l therapyon 09-13-2022 OT Evaluation v2-occupational therapy Rehab: Info: Mode of Treatmentoccupational therapy Time IN13:29 Time OUT13:54 Total Treatment [id number] Total Minutes Commentplus 1415 to 1437 with PT james Patient in ... at end of sessionchair Communicated with ... at end of sessionbedside nurse; care process manager; physician; Discussion with Dr. Clarek, care transitions Vera and Princess about pt potential and mental health being pt largest limitation Patient Effortgood Symptoms Noted During/After Treatmentfatigue Patient Profile Reviewedyes Onset of Illness/Injury or Date of [id number] Reason for ReferralADL safety Referring PhysicianLogtiffanie Clarke [...] Ax2 with gait belt and FWW Sit-Stand [place] (Transfers)minimum assist (75% patient effort); 2 person assist Sit-Stand Assistive Device (Transfers)gait belt; walker, front-wheeled Stand-Sit [place] (Transfers)minimum assist (75% patient effort); 2 person assist Stand-Sit Assistive Device (Transfers)gait belt; walker, front-wheeled Safety Issues Impacting Function (Mobility)anixety; insight into deficits/self awareness Impairments Impacting Function (Mobility)strength; endurance/activity tolerance; postural/trunk control ADL: BADL Assessment/Interventionl ower body dressing; toileting Position (Lower Body Dressing)unsupported sitting Comment (Lower Body Dressing)sitting in chair [place] Level (Toileting)maximum assist (25% patient effort) Assistive [...] (OT Eval)5 times/wk Predicted Duration of Therapy Fknwvnhuoqny96 days Functional Limitations in Following Categoriesself-care; mobility/gait Outc (more content not included)... Normal [facility] Rehab Noteon 09-13-2022 Rehab Note Rehab: Info: Time IN11:31 Time OUT11:46 Total Treatment [id number] Total Minutes Commentadditional time 2110-5928 by PT James Mendez for transfers and [...] floor. Unable to lift/clear right leg. Sit-Stand [place] (Transfers)minimum assist (75% patient effort); 1 person assist Sit-Stand Assistive Device (Transfers)gait belt; walker, front-wheeled Stand-Sit [place] (Transfers)contact guard; 1 person assist; verbal cues [...] steps with railingtotal AM-PAC (PT) Total Score12 Box Covering Machine Operator Goals: Bed Mobility: Established Bed Mobility: [place] Level Goalmodified independent; With bed flat and HOB not elevated; can use trapeze bar Bed Mobility: Time Frame for Goal1 wk Transfer: Established Transfer: Transfer Type Vovavjg-yk-ooycx/chair-t o-bed; bmw-fs-daeoy/stand-to-si t Transfer: [place] Level Goalmoderate assist (50% patients effort) Transfer: Physical Assist Level Goal1-person assist Transfer: Assistive Device Goalrolling walker Transfer: Time Frame for Goal1 wk Balance: Date [id number] Balance: Goal DetailsPatient able to sit edge [...] I and ease with functional transfers. NANCY Tobias All clinical decision making and treatment directly supervised by Constance Gonzalez COMMUNICATION CENTER COORDINATOR 4966 patient's plan of care updated with updated goals to include transfers and stepping. Patient agreeable to trying to get be (more content not included)... Normal [facility] BASIC METABOLIC PANELon 06-0 Anion gap [Moles/Vol] 12 mmol/L Normal 10 - 20 [facility] Comment on above: Performed By: #### B MP #### [address] [address] Calcium [Mass/Vol] 8.4 mg/dL Low 8.6 - 10.3 [facility] Comment on above: Performed By: #### B MP #### [place] [address] [place] [address] Chloride [Moles/Vol] 97 mmol/L Low 98 - 107 [facility] Comment on above: Performed By: #### B MP #### [address] [address] Creatinine [Mass/Vol] 0.88 mg/dL Normal 0.50 - 1.05 [facility] Comment on above: Performed By: #### B MP #### [address] [address] GFR/1.73 sq M.predicted among non-blacks MDRD (S/P/Bld) [Vol rate/Area] 69 mL/min/{1.73_m2} Normal >90 [facility] Comment on above: Result Comment: CALC ULATIONS OF ESTIMATED GFR ARE PERFORMED USING THE 2020 CKD-EPI STUDY REFIT EQUATION WITHOUT THE RACE VARIABLE FOR THE IDMS-TRACEABLE CREATININE METHODS. https://jasn.asnjournals.org/content/early//ASN.54171 [address] Performed By: #### B MP #### [address] [address] Glucose [Mass/Vol] 152 mg/dL High 74 - 99 [facility] Comment on above: Performed By: #### B MP #### [address] [address] HCO3 (Bld) [Moles/Vol] 29 mmol/L Normal 21 - 32 [facility] Comment on above: Performed By: #### B MP #### [address] [address] Potassium [Moles/Vol] 3.5 mmol/L Normal 3.5 - 5.3 [facility] Comment on above: Performed By: #### B MP #### [address] [address] Sodium [Moles/Vol] 134 mmol/L Low 136 - 145 [facility] Comment on above: Performed By: #### B MP #### [address] [address] Urea nitrogen [Mass/Vol] 13 mg/dL Normal 6 - 23 [facility] Comment on above: Performed By: #### B MP #### [address] [address] CBC AND DIFFERENTIALon 09-12 % AUTOMATED IMMATURE GRAN 0.9 % Normal 0.0 - 0.9 [facility] Comment on above: Result Comment: Martina ture Granulocyte Count (IG) includes promyelocytes, myelocytes and metamyelocytes but does not include bands. Percent differential counts (%) should be interpreted in the context of the absolute cell counts (cells/L). Performed By: #### L ACT #### [place] [id number] Basophils (Bld) [#/Vol] 0.08 10*3/uL Normal 0.00 - 0.10 [facility] Comment on above: Performed By: #### L ACT #### [place] [id number] Basophils/100 WBC (Bld) 0.8 % Normal 0.0 - 2.0 [facility] Comment on above: Performed By: #### L ACT #### [place] [id number] Eosinophils (Bld) [#/Vol] 0.52 10*3/uL High 0.00 - 0.40 [facility] Comment on above: Performed By: #### L ACT #### [place] [id number] Eosinophils/100 WBC (Bld) 4.9 % Normal 0.0 - 6.0 [facility] Comment on above: Performed By: #### L ACT #### [place] [id number] Erythrocyte distribution width (RBC) [Ratio] 17.2 % High 11.5 - 14.5 [facility] Comment on above: Performed By: #### L ACT #### [place] [id number] Hematocrit (Bld) [Volume fraction] 28.1 % Low 36.0 - 46.0 [facility] Comment on above: Performed By: #### L ACT #### [address] [address] Hemoglobin (Bld) [Mass/Vol] 8.1 g/dL Low 12.0 - 16.0 [facility] Comment on above: Performed By: #### L ACT #### [address] [address] Lymphocytes (Bld) [#/Vol] 2.75 10*3/uL Normal 0.80 - 3.00 [facility] Comment on above: Performed By: #### L ACT #### [address] [address] Lymphocytes/100 WBC (Bld) 26.0 % Normal 13.0 - 44.0 [facility] Comment on above: Performed By: #### L ACT #### [address] [address] MCHC (RBC) [Mass/Vol] 28.8 g/dL Low 32.0 - 36.0 [facility] Comment on above: Performed By: #### L ACT #### [address] [address] MCV (RBC) [Entitic vol] 71 fL Low 80 - 100 [facility] Comment on above: Performed By: #### L ACT #### [address] [address] Monocytes (Bld) [#/Vol] 0.83 10*3/uL High 0.05 - 0.80 [facility] Comment on above: Performed By: #### L ACT #### [address] [address] Monocytes/100 WBC (Bld) 7.8 % Normal 2.0 - 10.0 [facility] Comment on above: Performed By: #### L ACT #### [address] [address] Neutrophils (Bld) [#/Vol] 6.31 10*3/uL High 1.60 - 5.50 [facility] Comment on above: Result Comment: Perc ent differential counts (%) should be interpreted in the context of the absolute cell counts (cells/L). Performed By: #### L ACT #### [address] [address] Neutrophils/100 WBC (Bld) 59.6 % Normal 40.0 - 80.0 [facility] Comment on above: Performed By: #### L ACT #### [address] [address] Platelets (Bld) [#/Vol] 261 10*3/uL Normal 150 - 450 [facility] Comment on above: Performed By: #### L ACT #### [address] [address] RBC 3.98 x10E12/L Low 4.00 - 5.20 [facility] Comment on above: Performed By: #### L ACT #### [address] [address] WBC (Bld) [#/Vol] 10.6 10*3/uL Normal 4.4 - 11.3 [facility] Comment on above: Performed By: #### L ACT #### [address] [address] Daily Progress Note-General Internal Medicineon 09-12-2022 Daily Progress Note-General Internal Medicine Service: General Internal Medicine Subjective Data: DARYN GUILLERMO is a 76 year old Female who is Hospital Day # 5. Overnight Events: Patient had an uneventful night. Additional Information: Patient seen and examined bedside. She is very tearful. She is bedbound. She is thinking about rehab at this time. Objective Data: Objective Information: T PRBPMAPSpO2 Value36.68662115/7497% Date/Time09/12 7: 7: 7: 7: 7:35 Range(36.1C - 36.8C ) (66 - 87 ) (16 - 20 ) (100 - 113 )/ (64 - 74 ) (95% - 97% ) Pain reported at 09/12 9:07: 3 = Mild ---- Intake and Output ----- Mn/Dy/Year TimeIntakeOutputNet Sep 12, 2022 6:00 [id number] Sep 11, 2022 10:00 [id number] Sep 11, 2022 2:00 [id number] The Intake and Output Totals for the last 24 hours are: IntakeOutputNet [id number] Physical Exam by System: Constitutional: Well developed, [...] Spontaneous/Phasic Peroneal Yes None PTV Yes None [id number] Don Rico MD Final [facility] Venous Duplex Ultrasound for DVT [Sep 11 2022 7:14PM] Conclusion: CONCLUSIONS: 1. Left ventricular systolic function is normal with (more content not included)... Normal [facility] Daily Progress Note-Nephrolo gyon 09-12-2022 Daily Progress Note-Nephrology Service: Nephrology Subjective Data: DARYN GUILLERMO is a 76 year old Female who is Hospital Day # 5. Patient seen and examined at the bedside this morning She is resting comfortably in bed No major complaints Does get teary as she wants to go home and be with her . Objective Data: Objective Information: T PRBPMAPSpO2 Value36.89197048/7497% Date/Time09/12 7: 7: 7: 7: 7:35 Range(36.1C - 36.8C ) (66 - 87 ) (16 - 20 ) (100 - 113 )/ (64 - 74 ) (95% - 97% ) Pain reported at 09/12 9:07: 3 = Mild ---- Intake and Output ----- Mn/Dy/Year TimeIntakeOutputNet Sep 12, 2022 6:00 [id number] Sep 11, 2022 10:00 [id number] Sep 11, 2022 2:00 [id number] The Intake and Output Totals for the last 24 hours are: IntakeOutputNet [id number] Physical Exam by System: Constitutional: Awake, alert, [...] 12-Sep-2022 11:24 by Ru Mills () Normal [facility] GLUCOSE-POCTon 09-12-2022 Glucose [Mass/Vol] 177 mg/dL High - [address] [place] [address] Comment on above: Performed By: #### U ARFX #### [address] [address] Glucose [Mass/Vol] 159 mg/dL High 74 - [address] [place] [address] Comment on above: Performed By: #### L ACT #### [address] [address] Glucose [Mass/Vol] 137 mg/dL High 74 - [address] [place] [address] Comment on above: Performed By: #### G ROLLY ####[address] [address] Glucose [Mass/Vol] 146 mg/dL High [address] [place] [address] Comment on above: Performed By: #### L ACT #### [address] [place] [address] OSMOLALITY,URINE SPOTon 060 OSMOLALITY,URINE SPOT 441 mOsm/kg Normal 200 - 1200 [facility] Comment on above: Performed By: #### L ACT #### [address] [address] OT Evaluation v2-occupationa l therapyon 09-12-2022 OT Evaluation v2-occupational therapy Rehab: Info: Mode of Treatmentattempted; occupational therapy Evaluation Not Performedx2 attempts made to see pt between 1447 and 1513. Pt unavailable at this time, with other care provider. Will attempt tomorrow. 09/13 Electronic Signatures: Jadyn Monk (OT) (Signed 12-Sep-2022 15:13) Authored: Info Last Updated: 12-Sep-2022 15:13 by Jadyn Monk (OT) [facility] Rehab Note-individual therap yon 09-12-2022 Rehab Note-individual therapy Rehab: Info: Disciplinephysical pediatric physical therapy assistant Mode of Treatmentindividual therapy; physical therapy Time IN10:35 Time OUT11:06 Total Treatment [id number] Patient in ... at end of sessionbed, [...] to supine Supine to Sit to Supine [place] (Bed Mobility)contact guard; 1 person assist; minimum [...] and safety. MB Electronic Signatures: Laurent Mckeon (COMMUNICATION CENTER COORDINATOR) (Signed 12-Sep-2022 12:06) Authored: Info, Vision/Cognition, Mobility/Tone, Motor, Sensory, Outcomes Tools, Short Term Goals, Outcome Summary James Mendez (PT) (Signed 13-Sep-2022 08:29) Co-Signer: Outcome Summary Last Updated: 13-Sep-2022 08:29 by James Mendez (PT) Normal [facility] SODIUM, URINE SPOTon 023 CREATININE,URINE 45.6 mg/dL Normal 20.0 - 320.0 [facility] Comment on above: Performed By: #### G ROLLY #### [address] [address] Sodium (U) [Moles/Vol] 156 mmol/L Normal Not Established [facility] Comment on above: Performed By: #### G ROLLY #### [address] [address] SODIUM/CREAT RATIO 342 mmol/g Creat Normal Not Established [facility] Comment on above: Performed By: #### G ROLLY #### [address] [address] URIC ACIDon 09-12-2022 Urate [Mass/Vol] 4.1 mg/dL Normal 2.3 - 6.7 [facility] Comment on above: Result Comment: Loly puncture immediately after or during the administration of Metamizole may lead to falsely low results. Testing should be performed immediately prior to Metamizole dosing. Performed By: #### L ACT #### [address] [address] CBC AND DIFFERENTIALon 09-11 % AUTOMATED IMMATURE GRAN 0.5 % Normal 0.0 - 0.9 [facility] Comment on above: Result Comment: Martina ture Granulocyte Count (IG) includes promyelocytes, myelocytes and metamyelocytes but does not include bands. Percent differential counts (%) should be interpreted in the context of the absolute cell counts (cells/L). Performed By: #### U ARFX #### [address] [address] Basophils (Bld) [#/Vol] 0.06 10*3/uL Normal 0.00 - 0.10 [facility] Comment on above: Performed By: #### U ARFX #### [address] [address] Basophils/100 WBC (Bld) 0.5 % Normal 0.0 - 2.0 [facility] Comment on above: Performed By: #### U ARFX #### [address] [address] Eosinophils (Bld) [#/Vol] 0.48 10*3/uL High 0.00 - 0.40 [facility] Comment on above: Performed By: #### U ARFX #### [address] [address] Eosinophils/100 WBC (Bld) 4.0 % Normal 0.0 - 6.0 [facility] Comment on above: Performed By: #### U ARFX #### [address] [address] Erythrocyte distribution width (RBC) [Ratio] 17.1 % High 11.5 - 14.5 [facility] Comment on above: Performed By: #### U ARFX #### [address] [address] Hematocrit (Bld) [Volume fraction] 27.8 % Low 36.0 - 46.0 [facility] Comment on above: Performed By: #### U ARFX #### [address] [address] Hemoglobin (Bld) [Mass/Vol] 8.0 g/dL Low 12.0 - 16.0 [facility] Comment on above: Performed By: #### U ARFX #### [address] [address] Lymphocytes (Bld) [#/Vol] 2.95 10*3/uL Normal 0.80 - 3.00 [facility] Comment on above: Performed By: #### U ARFX #### [address] [address] Lymphocytes/100 WBC (Bld) 24.4 % Normal 13.0 - 44.0 [facility] Comment on above: Performed By: #### U ARFX #### [address] [address] MCHC (RBC) [Mass/Vol] 28.8 g/dL Low 32.0 - 36.0 [facility] Comment on above: Performed By: #### U ARFX #### [address] [address] MCV (RBC) [Entitic vol] 71 fL Low 80 - 100 [facility] Comment on above: Performed By: #### U ARFX #### [address] [address] Monocytes (Bld) [#/Vol] 1.01 10*3/uL High 0.05 - 0.80 [facility] Comment on above: Performed By: #### U ARFX #### [address] [address] Monocytes/100 WBC (Bld) 8.4 % Normal 2.0 - 10.0 [facility] Comment on above: Performed By: #### U ARFX #### [address] [address] Neutrophils (Bld) [#/Vol] 7.53 10*3/uL High 1.60 - 5.50 [facility] Comment on above: Result Comment: Perc ent differential counts (%) should be interpreted in the context of the absolute cell counts (cells/L). Performed By: #### U ARFX #### [address] [address] Neutrophils/100 WBC (Bld) 62.2 % Normal 40.0 - 80.0 [facility] Comment on above: Performed By: #### U ARFX #### [address] [address] Platelets (Bld) [#/Vol] 252 10*3/uL Normal 150 - 450 [facility] Comment on above: Performed By: #### U ARFX #### [address] [address] RBC 3.94 x10E12/L Low 4.00 - 5.20 [facility] Comment on above: Performed By: #### U ARFX #### [address] [address] WBC (Bld) [#/Vol] 12.1 10*3/uL High 4.4 - 11.3 [facility] Comment on above: Performed By: #### U ARFX #### [address] [address] COMPREHENSIVE PANELon 2022 Albumin [Mass/Vol] 3.1 g/dL Low 3.4 - 5.0 [facility] Comment on above: Performed By: #### G ROLLY #### [address] [address] ALP [Catalytic activity/Vol] 89 U/L Normal 33 - 136 [facility] Comment on above: Performed By: #### G ROLLY #### [address] [address] ALT [Catalytic activity/Vol] 6 U/L Low 7 - 45 [facility] Comment on above: Result Comment: Madhavi ents treated with Sulfasalazine may generate falsely decreased results for ALT. Performed By: #### G ROLLY #### [address] [address] Anion gap [Moles/Vol] 9 mmol/L Low 10 - 20 [facility] Comment on above: Performed By: #### G ROLLY #### [address] [address] AST [Catalytic activity/Vol] 10 U/L Normal 9 - 39 [facility] Comment on above: Performed By: #### G ROLLY #### [address] [address] Bilirubin [Mass/Vol] 0.4 mg/dL Normal 0.0 - 1.2 [facility] Comment on above: Performed By: #### G ROLLY #### [address] [address] Calcium [Mass/Vol] 8.5 mg/dL Low 8.6 - 10.3 [facility] Comment on above: Performed By: #### G ROLLY #### [address] [address] Chloride [Moles/Vol] 96 mmol/L Low 98 - 107 [facility] Comment on above: Performed By: #### G ROLLY #### [address] [address] Creatinine [Mass/Vol] 0.72 mg/dL Normal 0.50 - 1.05 [facility] Comment on above: Performed By: #### G ROLLY #### [address] [address] GFR/1.73 sq M.predicted among non-blacks MDRD (S/P/Bld) [Vol rate/Area] 87 mL/min/{1.73_m2} Normal >90 [facility] Comment on above: Result Comment: CALC ULATIONS OF ESTIMATED GFR ARE PERFORMED USING THE 2020 CKD-EPI STUDY REFIT EQUATION WITHOUT THE RACE VARIABLE FOR THE IDMS-TRACEABLE CREATININE METHODS. https://jasn.asnjournals.org/content//ASN.20218 [address] Performed By: #### G ROLLY #### [address] [address] Glucose [Mass/Vol] 136 mg/dL High 74 - 99 [facility] Comment on above: Performed By: #### G ROLLY #### [address] [address] HCO3 (Bld) [Moles/Vol] 30 mmol/L Normal 21 - 32 [facility] Comment on above: Performed By: #### G ROLLY #### [address] [address] Potassium [Moles/Vol] 3.5 mmol/L Normal 3.5 - 5.3 [facility] Comment on above: Performed By: #### G ROLLY #### [address] [address] Protein [Mass/Vol] 5.9 g/dL Low 6.4 - 8.2 [facility] Comment on above: Performed By: #### G ROLLY #### [address] [address] Sodium [Moles/Vol] 131 mmol/L Low 136 - 145 [facility] Comment on above: Performed By: #### G ROLLY #### [address] [address] Urea nitrogen [Mass/Vol] 13 mg/dL Normal 6 - 23 [facility] Comment on above: Performed By: #### G ROLLY #### [address] [address] Consult-Nephrologyon 023 Consult-Nephrology Service: Service: Nephrology Consult: Consult requested by (Attending Name): Angelique Clarke Reason: Hyponatremia History of Present Illness: HPI: DARYN GUILLERMO is a 76 year old Female She [...] Known Allergies: Objective: Objective Information: T PRBPMAPSpO2 Value36.12178576/7095% Date/Time09/11 7: 7: 7: 7: 7:54 Range(36.4C [...] Bilateral [J (more content not included)... Normal [facility] Daily Progress Note-General Internal Medicineon 09-11-2022 Daily Progress Note-General Internal Medicine Service: General Internal Medicine Subjective Data: DARYN GUILLERMO is a 76 year old Female who is Hospital Day # 4. Overnight Events: Patient had an uneventful night. Additional Information: Patient seen and examined at bedside. She is doing well. No issues today Objective Data: Objective Information: T PRBPMAPSpO2 Value36.05165142/7095% Date/Time09/11 7: 7: 7: 7: 7:54 Range(36.4C - 36.7C ) (66 - 94 ) (16 - 19 ) (107 - 124 )/ (69 - 74 ) (94% - 98% ) Pain reported at 09/10 20:00: 0 = None ---- Intake and Output ----- Mn/Dy/Year TimeIntakeOutputNet Sep 11, 2022 6:00 [id number] Sep 10, 2022 10:00 [id number] Sep 10, 2022 2:00 [id number] The Intake and Output Totals for the last 24 hours are: IntakeOutputNet [id number] Physical Exam by System: Constitutional: Well developed, [...] wounds Hi (more content not included)... Normal [facility] Echocardiogramon 09-11-2022 Echocardiography [facility] nter [address] [place] [address] ext-2528, TRANSTHORACIC ECHOCARDIOGRAM REPORT Patient Name: DARYN RUSSELLNETT Reading Physician: [id number] Norman Valdivia MD Study Date: 09/11/2022 Referring ANGELIQUE CLARKE Physician: MRN/PID: [id number] PCP: Accession/Order#: [id number] Department [address] Location: Date of : 1945 Fellow: Gender: F Nurse: Admit Date: 09/08/2022 Kiln Charger: Asia Aquino RVT, [facility] Admission Status: Inpatient - Additional Staff: Routine Height: 167.00 cm CC Report to: Weight: 116.00 kg Study Type: Echocardiogram BSA: 2.21 m2 Blood Pressure: 111 /70 mmHg Diagnosis/ICD: I48.0-Paroxysmal atrial fibrillation Indication: AFib Procedure/CPT: Echo Complete w Full Doppler-[id number] Patient History: Pertinent History: Previous echo 02-14-2019. [...] LA Area A2C: 26.8 cm2 LA [place] A4C: 6.8 cm LA [place] A2C: 5.7 cm LA Volume Index: 44.3 [...] 1.1 m/s (0.6-0.9m/s) PV Max P.5 mmHg [id number] Norman Valdivia MD Electronically signed on 09/11/2022 at 11:54:26 AM Final Normal [facility] FECAL OCCULT BLD IMMUNOASSAY on 09-11-2022 FECAL OCCULT BLD IMMUNOASSAY Negative Normal Negative [facility] Comment on above: Result Comment: This test [...] date. Performed By: #### U ARFX #### [place] [address] Lab Specimen Source Stool Normal [facility] Comment on above: Performed By: #### U ARFX #### [place] [id number] GLUCOSE-POCTon 09-11-2022 Glucose [Mass/Vol] 169 mg/dL High [address] [place] [address] Comment on above: Performed By: #### U ARFX #### [place] [address] Glucose [Mass/Vol] 203 mg/dL High [address] [place] [address] Comment on above: Performed By: #### G ROLLY #### [place] [address] Glucose [Mass/Vol] 134 mg/dL High [address] [place] [address] Comment on above: Performed By: #### G ROLLY #### [place] [id number] Glucose [Mass/Vol] 153 mg/dL High [address] [place] [address] Comment on above: Performed By: #### G ROLLY ####[place] [address] Rehab Note-physical therapyo n 09-11-2022 Rehab Note-physical therapy Rehab: Info: Disciplinephysical pediatric physical therapy assistant Mode of Treatmentphysical therapy Time IN13:54 Time OUT14:31 Total Treatment [id number] Patient in ... at end of sessionbed, [...] Outcome Summary: Physical TherapyPatient became emotional when skilled nursing facility counselor kept adjusting portable telemetry and stating her [...] Vision/Cognition, Info, Mobility/Tone, Motor, Outcomes Tools Constance Gonzalez (COMMUNICATION CENTER COORDINATOR) (Signed 11-Sep-2022 15:56) Authored: Info, Mobility/Tone, Motor, Sensory, Outcomes Tools, Outcome Summary Valery Christy (PT) (Signed 11-Sep-2022 16:41) Co-Signer: Info, Mobility/Tone, Motor, Sensory, Outcomes Tools, Outcome Summary Last Updated: 11-Sep-2022 16:41 by Valery Christy (PT) Normal [facility] V[facility] LAB Venous Duplex Ultra sound DVTon 09-11-2022 VAS LAB Venous Duplex Ultrasound DVT [place] [id number], Vascular Lab Report Lower Venous Duplex Ultrasound Patient Name: DARYN GUILLERMO Reading Physician: [id number] Don Rico MD Study Date: 09/11/2022 Referring Physician: CHIDI SCHULZ MRN/PID: [id number] PCP: Accession/Order#: [id number] CC Report to: Date of : 1945 Technologist: Cristal Iyer RVT Gender: F Technologist 2: Admission Status: Inpatient Location Performed: [facility] Diagnosis/ICD: R60.0-Localized (leg) edema; M79.89-Left leg swelling; M79.605-Pain in left leg Procedure/CPT: 20478 Peripheral venous duplex scan for DVT complete-48553 CONCLUSIONS: Right Lower Venous: No evidence of [...] Spontaneous/Phasic Peroneal Yes None PTV Yes None [id number] Don Rico MD Final Normal [facility] BASIC METABOLIC PANELon 06-0 4-2023 Anion gap [Moles/Vol] 10 mmol/L Normal 10 - 20 [facility] Comment on above: Performed By: #### B MP #### [address] [address] Calcium [Mass/Vol] 8.4 mg/dL Low 8.6 - 10.3 [facility] Comment on above: Performed By: #### B MP #### [address] [address] Chloride [Moles/Vol] 97 mmol/L Low 98 - 107 [facility] Comment on above: Performed By: #### B MP #### [address] [address] Creatinine [Mass/Vol] 0.82 mg/dL Normal 0.50 - 1.05 [facility] Comment on above: Performed By: #### B MP #### [address] [address] GFR/1.73 sq M.predicted among non-blacks MDRD (S/P/Bld) [Vol rate/Area] 75 mL/min/{1.73_m2} Normal >90 [facility] Comment on above: Result Comment: CALC ULATIONS OF ESTIMATED GFR ARE PERFORMED USING THE 2020 CKD-EPI STUDY REFIT EQUATION WITHOUT THE RACE VARIABLE FOR THE IDMS-TRACEABLE CREATININE METHODS. https://jasn.asnjournals.org/content//ASN.98546 [address] Performed By: #### B MP #### [address] [address] Glucose [Mass/Vol] 152 mg/dL High 74 - 99 [facility] Comment on above: Performed By: #### B MP #### [address] [address] HCO3 (Bld) [Moles/Vol] 28 mmol/L Normal 21 - 32 [facility] Comment on above: Performed By: #### B MP #### [address] [address] Potassium [Moles/Vol] 3.6 mmol/L Normal 3.5 - 5.3 [facility] Comment on above: Performed By: #### B MP #### [address] [address] Sodium [Moles/Vol] 131 mmol/L Low 136 - 145 [facility] Comment on above: Performed By: #### B MP #### [address] [address] Urea nitrogen [Mass/Vol] 17 mg/dL Normal 6 - 23 [facility] Comment on above: Performed By: #### B MP #### [address] [address] CBC AND DIFFERENTIALon 09-10 % AUTOMATED IMMATURE GRAN 0.6 % Normal 0.0 - 0.9 [facility] Comment on above: Result Comment: Martina ture Granulocyte Count (IG) includes promyelocytes, myelocytes and metamyelocytes but does not include bands. Percent differential counts (%) should be interpreted in the context of the absolute cell counts (cells/L). Performed By: #### C BCDF ####[address] [address] Basophils (Bld) [#/Vol] 0.06 10*3/uL Normal 0.00 - 0.10 [facility] Comment on above: Performed By: #### C BCDF ####[address] [address] Basophils/100 WBC (Bld) 0.5 % Normal 0.0 - 2.0 [facility] Comment on above: Performed By: #### C BCDF ####[address] [address] Eosinophils (Bld) [#/Vol] 0.28 10*3/uL Normal 0.00 - 0.40 [facility] Comment on above: Performed By: #### C BCDF ####[address] [address] Eosinophils/100 WBC (Bld) 2.3 % Normal 0.0 - 6.0 [facility] Comment on above: Performed By: #### C BCDF ####[address] [address] Erythrocyte distribution width (RBC) [Ratio] 17.2 % High 11.5 - 14.5 [facility] Comment on above: Performed By: #### C BCDF ####[address] [address] Hematocrit (Bld) [Volume fraction] 26.4 % Low 36.0 - 46.0 [facility] Comment on above: Performed By: #### C BCDF ####[address] [address] Hemoglobin (Bld) [Mass/Vol] 7.8 g/dL Low 12.0 - 16.0 [facility] Comment on above: Performed By: #### C BCDF ####[address] [address] Lymphocytes (Bld) [#/Vol] 2.19 10*3/uL Normal 0.80 - 3.00 [facility] Comment on above: Performed By: #### C BCDF ####[address] [address] Lymphocytes/100 WBC (Bld) 17.6 % Normal 13.0 - 44.0 [facility] Comment on above: Performed By: #### C BCDF ####[address] [address] MCHC (RBC) [Mass/Vol] 29.5 g/dL Low 32.0 - 36.0 [facility] Comment on above: Performed By: #### C BCDF ####[address] [address] MCV (RBC) [Entitic vol] 70 fL Low 80 - 100 [facility] Comment on above: Performed By: #### C BCDF ####[address] [address] Monocytes (Bld) [#/Vol] 1.19 10*3/uL High 0.05 - 0.80 [facility] Comment on above: Performed By: #### C BCDF ####[address] [address] Monocytes/100 WBC (Bld) 9.6 % Normal 2.0 - 10.0 [facility] Comment on above: Performed By: #### C BCDF ####[address] [address] Neutrophils (Bld) [#/Vol] 8.64 10*3/uL High 1.60 - 5.50 [facility] Comment on above: Result Comment: Perc ent differential counts (%) should be interpreted in the context of the absolute cell counts (cells/L). Performed By: #### C BCDF ####[address] [address] Neutrophils/100 WBC (Bld) 69.4 % Normal 40.0 - 80.0 [facility] Comment on above: Performed By: #### C BCDF ####[address] [address] Platelets (Bld) [#/Vol] 225 10*3/uL Normal 150 - 450 [facility] Comment on above: Performed By: #### C BCDF ####[address] [address] RBC 3.78 x10E12/L Low 4.00 - 5.20 [facility] Comment on above: Performed By: #### C BCDF ####[address] [address] WBC (Bld) [#/Vol] 12.4 10*3/uL High 4.4 - 11.3 [facility] Comment on above: Performed By: #### C BCDF ####[address] [address] Daily Progress Note-General Internal Medicineon 09-10-2022 Daily Progress Note-General Internal Medicine Service: General Internal Medicine Subjective Data: DARYN GUILLERMO is a 76 year old Female who is Hospital Day # 3. Overnight Events: Patient had an uneventful night. Additional Information: Patient seen and examined at bedside. She feels fine. She complains of left thigh swelling and inflammation. She sounds better with vancomycin Objective Data: Objective Information: T PRBPMAPSpO2 Value36.20962818/7497% Date/Time6/4 7: 7: 7: 7: 7:50 Range(36.1C - 37.1C ) (58 - 94 ) (18 - 19 ) (101 - 117 )/ (57 - 74 ) (97% - 98% ) Highest temp of 37.1 C was recorded at 09/09 15:27 Pain reported at 09/10 9:30: 0 = None ---- Intake and Output ----- Mn/Dy/Year TimeIntakeOutc[facility] facilityNet Sep 10, 2022 6:00 [id number] Sep 09, 2022 10:00 [id number] Sep 09, 2022 2:00 [id number] The Intake and Output Totals for the last 24 hours are: [facility] [id number] Physical Exam by System: Constitutional: Well developed, [...] medical history (more content not included)... Normal [facility] EMR ADDONon 09-10-2022 ADDON CONFIRMATION REQUEST REC'D Normal [facility] Comment on above: Performed By: #### U ARFX #### [address] [address] GLUCOSE-POCTon 09-10-2022 Glucose [Mass/Vol] 160 mg/dL High 74 - 99 [facility] Comment on above: Performed By: #### U ARFX #### [address] [address] Glucose [Mass/Vol] 171 mg/dL High 74 - 99 [facility] Comment on above: Performed By: #### G ROLLY #### [address] [address] Glucose [Mass/Vol] 163 mg/dL High 74 - 99 [facility] Comment on above: Performed By: #### G ROLLY #### [address] [address] Glucose [Mass/Vol] 147 mg/dL High 74 - 99 [facility] Comment on above: Performed By: #### U ARFX #### [address] [address] MAGNESIUMon 09-10-2022 Magnesium [Mass/Vol] 1.80 mg/dL Normal 1.60 - 2.40 [facility] Comment on above: Performed By: #### U ARFX #### [address] [address] PT/INRon 09-10-2022 PT Coag (PPP) [Time] 16.8 s High 9.8 - 13.4 [facility] Comment on above: Performed By: #### P TINR ####[address] [address] PT, INR 1.4 High 0.9 - 1.1 [facility] Comment on above: Performed By: #### P TINR ####[address] [address] Rehab Note-individual therap yon 09-10-2022 Rehab Note-individual therapy Rehab: Info: Disciplinephysical pediatric physical therapy assistant Mode of Treatmentindividual therapy Time IN11:07 Time OUT11:26 Total Treatment [id number] Patient in ... at end of sessionbed, [...] Mobility/Tone: Bed Mobility Assessment/Interventions supine to sit [id number] [place] (Bed Mobility)supervision Assistive Device (Bed Mobility)bed rails [...] POC as tolerated. Electronic Signatures: Ladi Vasquez (COMMUNICATION CENTER COORDINATOR) (Signed 10-Sep-2022 11:45) Authored: Info, Vision/Cognition, Mobility/Tone, Motor, Sensory, Outcomes Tools, Outcome Summary Cameron Perkins (PT) (Signed 10-Sep-2022 13:51) Co-Signer: Info, Vision/Cognition, Mobility/Tone, Motor, Sensory, Outcomes Tools, Outcome Summary Last Updated: 10-Sep-2022 13:51 by Cameron Perkins (PT) [facility] URINALYSIS WITH CULTURE IF I NDICATEDon 09-10-2022 Appearance (U) Canceled [facility] Comment on above: Order Comment: TEST URINALYSIS WITH CULTURE IF INDICATED WAS CANCELLED, 09/10/2022 17:38 NSR. Performed By: #### G ROLLY #### [facility] [address] [place] [address] ASCORBIC ACID Canceled [facility] Comment on above: Order Comment: [...] hours. Performed By: #### G ROLLY #### [address] [address] Bilirubin Ql (U) Canceled [facility] Comment on above: Order Comment: TEST URINALYSIS WITH CULTURE IF INDICATED WAS CANCELLED, 09/10/2022 17:38 NSR. Performed By: #### G ROLLY #### [address] [address] Color (U) Canceled [facility] Comment on above: Order Comment: TEST URINALYSIS WITH CULTURE IF INDICATED WAS CANCELLED, 09/10/2022 17:38 NSR. Performed By: #### G ROLLY #### [address] [address] Glucose Ql (U) Canceled [facility] Comment on above: Order Comment: TEST URINALYSIS WITH CULTURE IF INDICATED WAS CANCELLED, 09/10/2022 17:38 NSR. Performed By: #### G ROLLY #### [address] [address] Hemoglobin Ql (U) Canceled [facility] Comment on above: Order Comment: TEST URINALYSIS WITH CULTURE IF INDICATED WAS CANCELLED, 09/10/2022 17:38 NSR. Performed By: #### G ROLLY #### [address] [address] Ketones Ql (U) Canceled [facility] Comment on above: Order Comment: TEST URINALYSIS WITH CULTURE IF INDICATED WAS CANCELLED, 09/10/2022 17:38 NSR. Performed By: #### G ROLLY #### [address] [address] Leukocyte esterase Test strip Ql (U) Canceled [facility] Comment on above: Order Comment: TEST URINALYSIS WITH CULTURE IF INDICATED WAS CANCELLED, 09/10/2022 17:38 NSR. Performed By: #### G ROLLY #### [place] [address] Nitrite Ql (U) Canceled [facility] Comment on above: Order Comment: TEST URINALYSIS WITH CULTURE IF INDICATED WAS CANCELLED, 09/10/2022 17:38 NSR. Performed By: #### G ROLLY #### [place] [address] pH Canceled [facility] Comment on above: Order Comment: TEST URINALYSIS WITH CULTURE IF INDICATED WAS CANCELLED, 09/10/2022 17:38 NSR. Performed By: #### G ROLLY #### [place] [address] Protein Ql (U) Canceled [facility] Comment on above: Order Comment: TEST URINALYSIS WITH CULTURE IF INDICATED WAS CANCELLED, 09/10/2022 17:38 NSR. Performed By: #### G ROLLY #### [place] [address] Specific gravity (U) [Rel density] Canceled [facility] Comment on above: Order Comment: TEST URINALYSIS WITH CULTURE IF INDICATED WAS CANCELLED, 09/10/2022 17:38 NSR. Performed By: #### G ROLLY #### [place] [address] UROBILINOGEN Canceled [facility] Comment on above: Order Comment: TEST URINALYSIS WITH CULTURE IF INDICATED WAS CANCELLED, 09/10/2022 17:38 NSR. Performed By: #### G ROLLY #### [place] [address] VANCOMYCINon 09-10-2022 VANCOMYCIN 10.3 ug/mL [facility] Comment on above: Result Comment: .The rapeutic Ranges: Peak: All ages: 30.0-40.0 ug/mL . Trough: Age <18y: 5.0-10.0 ug/mL . Age >/= 18y: 5.0-20.0 ug/mL . Vancomycin trough concentrations drawn immediately prior to the next dose at steady-state are preferred for monitoring patients treated with vancomycin. Ref.: Am J Health-Syst Pharm 66: 83-98, 2008. Performed By: #### C BCDF #### [address] [address] BNPon 09-09-2022 Natriuretic peptide B (Bld) [Mass/Vol] 296 pg/mL High 0 - 99 [facility] Comment on above: Result Comment: . <1 00 pg/mL - Heart failure unlikely 100-299 pg/mL - Intermediate probability of acute heart . failure exacerbation. Correlate with clinical . context and patient history. >=300 pg/mL - Heart Failure likely. Correlate with clinical . context and patient history. BNP testing is performed using different testing methodology at [facility] than at other physicians & surgeons hospital. Direct result comparisons should only be made within the same method. Performed By: #### C BCDF #### [place] [id number] C-REACTIVE PROTEINon 023 C-REACTIVE PROTEIN 29.42 mg/dL Abnormal [facility] Comment on above: Result Comment: REF VALUE < 1.00 Performed By: #### C RP ####[address] [address] CBC AND DIFFERENTIALon 09-09 % AUTOMATED IMMATURE GRAN 0.4 % Normal 0.0 - 0.9 [facility] Comment on above: Result Comment: Martina ture Granulocyte Count (IG) includes promyelocytes, myelocytes and metamyelocytes but does not include bands. Percent differential counts (%) should be interpreted in the context of the absolute cell counts (cells/L). Performed By: #### C BCDF #### [address] [address] Basophils (Bld) [#/Vol] 0.02 10*3/uL Normal 0.00 - 0.10 [facility] Comment on above: Performed By: #### C BCDF #### [address] [address] Basophils/100 WBC (Bld) 0.1 % Normal 0.0 - 2.0 [facility] Comment on above: Performed By: #### C BCDF #### [address] [address] Eosinophils (Bld) [#/Vol] 0.09 10*3/uL Normal 0.00 - 0.40 [facility] Comment on above: Performed By: #### C BCDF #### [address] [address] Eosinophils/100 WBC (Bld) 0.7 % Normal 0.0 - 6.0 [facility] Comment on above: Performed By: #### C BCDF #### [address] [address] Erythrocyte distribution width (RBC) [Ratio] 17.2 % High 11.5 - 14.5 [facility] Comment on above: Performed By: #### C BCDF #### [address] [address] Hematocrit (Bld) [Volume fraction] 30.6 % Low 36.0 - 46.0 [facility] Comment on above: Performed By: #### C BCDF #### [address] [address] Hemoglobin (Bld) [Mass/Vol] 8.6 g/dL Low 12.0 - 16.0 [facility] Comment on above: Performed By: #### C BCDF #### [address] [address] Lymphocytes (Bld) [#/Vol] 1.78 10*3/uL Normal 0.80 - 3.00 [facility] Comment on above: Performed By: #### C BCDF #### [address] [address] Lymphocytes/100 WBC (Bld) 12.9 % Normal 13.0 - 44.0 [facility] Comment on above: Performed By: #### C BCDF #### [address] [address] MCHC (RBC) [Mass/Vol] 28.1 g/dL Low 32.0 - 36.0 [facility] Comment on above: Performed By: #### C BCDF #### [address] [address] MCV (RBC) [Entitic vol] 71 fL Low 80 - 100 [facility] Comment on above: Performed By: #### C BCDF #### [address] [address] Monocytes (Bld) [#/Vol] 1.27 10*3/uL High 0.05 - 0.80 [facility] Comment on above: Performed By: #### C BCDF #### [address] [address] Monocytes/100 WBC (Bld) 9.2 % Normal 2.0 - 10.0 [facility] Comment on above: Performed By: #### C BCDF #### [address] [address] Neutrophils (Bld) [#/Vol] 10.61 10*3/uL High 1.60 - 5.50 [facility] Comment on above: Result Comment: Perc ent differential counts (%) should be interpreted in the context of the absolute cell counts (cells/L). Performed By: #### C BCDF #### [address] [address] Neutrophils/100 WBC (Bld) 76.7 % Normal 40.0 - 80.0 [facility] Comment on above: Performed By: #### C BCDF #### [address] [address] Platelets (Bld) [#/Vol] 224 10*3/uL Normal 150 - 450 [facility] Comment on above: Performed By: #### C BCDF #### [address] [address] RBC 4.33 x10E12/L Normal 4.00 - 5.20 [facility] Comment on above: Performed By: #### C BCDF #### [address] [address] WBC (Bld) [#/Vol] 13.8 10*3/uL High 4.4 - 11.3 [facility] Comment on above: Performed By: #### C BCDF #### [address] [address] COMPREHENSIVE PANELon 2022 Albumin [Mass/Vol] 3.4 g/dL Normal 3.4 - 5.0 [facility] Comment on above: Performed By: #### B MP #### [address] [address] ALP [Catalytic activity/Vol] 91 U/L Normal 33 - 136 [facility] Comment on above: Performed By: #### B MP #### [address] [address] ALT [Catalytic activity/Vol] 7 U/L Normal 7 - 45 [facility] Comment on above: Result Comment: Madhavi ents treated with Sulfasalazine may generate falsely decreased results for ALT. Performed By: #### B MP #### [address] [address] Anion gap [Moles/Vol] 11 mmol/L Normal 10 - 20 [facility] Comment on above: Performed By: #### B MP #### [address] [address] AST [Catalytic activity/Vol] 15 U/L Normal 9 - 39 [facility] Comment on above: Performed By: #### B MP #### [address] [address] Bilirubin [Mass/Vol] 0.4 mg/dL Normal 0.0 - 1.2 [facility] Comment on above: Performed By: #### B MP #### [address] [address] Calcium [Mass/Vol] 8.7 mg/dL Normal 8.6 - 10.3 [facility] Comment on above: Performed By: #### B MP #### [address] [address] Chloride [Moles/Vol] 95 mmol/L Low 98 - 107 [facility] Comment on above: Performed By: #### B MP #### [address] [address] Creatinine [Mass/Vol] 1.00 mg/dL Normal 0.50 - 1.05 [facility] Comment on above: Performed By: #### B MP #### [address] [address] GFR/1.73 sq M.predicted among non-blacks MDRD (S/P/Bld) [Vol rate/Area] 59 mL/min/{1.73_m2} Abnormal >90 [facility] Comment on above: Result Comment: CALC ULATIONS OF ESTIMATED GFR ARE PERFORMED USING THE 2020 CKD-EPI STUDY REFIT EQUATION WITHOUT THE RACE VARIABLE FOR THE IDMS-TRACEABLE CREATININE METHODS. https://jasn.asnjournals.org/content/early//ASN.04785 [address] Performed By: #### B MP #### [address] [address] Glucose [Mass/Vol] 117 mg/dL High 74 - 99 [facility] Comment on above: Performed By: #### B MP #### [address] [address] HCO3 (Bld) [Moles/Vol] 28 mmol/L Normal 21 - 32 [facility] Comment on above: Performed By: #### B MP #### [address] [address] Potassium [Moles/Vol] 3.4 mmol/L Low 3.5 - 5.3 [facility] Comment on above: Performed By: #### B MP #### [address] [address] Protein [Mass/Vol] 6.5 g/dL Normal 6.4 - 8.2 [facility] Comment on above: Performed By: #### B MP #### [address] [address] Sodium [Moles/Vol] 131 mmol/L Low 136 - 145 [facility] Comment on above: Performed By: #### B MP #### [address] [address] Urea nitrogen [Mass/Vol] 20 mg/dL Normal 6 - 23 [facility] Comment on above: Performed By: #### B #### [facility] [address] [place] [address] Daily Progress Note-Medicine on 09-09-2022 Daily Progress [...] NEGATIVE: Mood Changes, Anxiety Subjective Data: DARYN GUILLERMO is a 76 year old Female who [...] time. Objective Data: Objective Information: T PRBPMAPSpO2 [id number]/6497% Date/Time09/09 7: 7: 7: 7: 7:25 Range(36.6C [...] B12, Serum (more content not included)... Normal [facility] Discharge Planning [id number] 0 09-09-2022 Discharge Planning Note2 Discharge Planning: Planned Dispositionsnf Discharge DestinationHome- Follow Patient/Pain Management Nurse Practitioner Stated GoalHome- Follow Discharge Transportation Needed from [facility] Anticipated Discharge [id number] Discharge Planning 09/09/22 @ [address]. CT/CATALINA note. SW reviewed chart and then met with patient. Catalina introduced self and explained the role of [...] her BS meter. She does see Dr Gilman as her PCP. She does not anticipate any needs at discharge. Plan is for patient to return home when ready. CT/SW to follow. Clementine Melvin PRECISION GRINDER,SURG RN 09/11/2022@ 427pm Care Transitions/SW Note: Pt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 13.4 [facility] Comment on above: Order Comment: PT RE PORTED TO KIARRA VALLES, 09/08/2022 13:56 Called- RB to Dr. Vera Huang at 1354 by , 09/08/2022 13:54 Result Comment: [facility] le repeated. PT REPORTED TO KIARRA VALLES, 09/08/2022 13:56 Performed By: #### C BCDF #### [place] [address] PT, INR 5.4 Critically abnormal 0.9 - 1.1 [facility] Comment on above: Order Comment: PT RE PORTED TO KIARRA VALLES, 09/08/2022 13:56 Called- RB to Dr. Vera Huang at 1354 by , 09/08/2022 13:54 Result Comment: Call ed- RB to Dr. Vera Huang at 1354 by , 09/08/2022 13:54 Performed By: #### C BCDF #### [place] [address] Patient Profile - Adult v2on 09-08-2022 Patient Profile - Adult v2 Profile: Initial Info: How to be AddressedEmily Spoken Language PreferredEnglish (1) Source of Informationpatient Stated Reason for AdmissionI'm sick Primary Contact Name and NumberJerry [phone] Wants Family/Rep Notified of Admissionno Notify PCPdo not notify PCP Informed of Patient Visiting Rightsyes [facility] Was Ad[facility] To in Past 90 Daysnone Employment Statusdisabled Current or Previous Servicenone Patient Belongingsremains with patient Patient Belongings Remaining with Patientcell phone/electronics; vision aids; purse/wallet; dental appliance; top dentures Medications Brought to Hospitalno General Health: Weight in kg116.5 kilogram(s) Weight in kfq416.8 pound(s) Weight Methodactual (measured) Scale Typebed Height [...] From History and Physical 08-Sep-2022 17:47 Normal [facility] Provider Note - ED v3on 06-0 Provider [...] beats. Heart rate is 101 bpm. The DC interval is 164 ms. The QRS duration is 96 ms. The QTc is 453 ms. [place] is -15 degrees. Patient was seen and evaluated due to complaints of generalized weakness and fever with inability to get out of bed. She was diagnosed with a urinary tract infection started on broad-spectrum antibiotics due to his concern for sepsis and admitted to the hospital for further IV antibiotics. This chart was dictated with the use of SV[employer] software within the framework of the current electronic medical records software. Attempts were made to edit in real time, given time constraints there is the potential for inaccuracies in my dictation. Vera Huang, HISTORY OF PRESENTING ILLNESS DARYN is a [...] day Drug (more content not included)... Normal [facility] RESPIRATORY CULT./SM,LOWERon 09-08-2022 RESPIRATORY CULT./SM,LOWER TEST RESPIRATORY CULT./SM,LOWER WAS CANCELLED, 09/13/2022 04:12 No specimen received. PATIENT: DARYN GUILLERMO LOCATION: [address] BILL#: [id number] : 49 AGE: SEX: F ORDERED BY: ANGELIQUE CLARKE SOURCE: SPUTUM COLLECTED: ANTIBIOTICS AT CAREN.: RECEIVED : SITE: R E S U L T S GRAM STAIN CANCELLED 09/13/22 04:12 RESPIRATORY CULT./SM,LOWER CANCELLED 09/13/22 04:12 [facility] Comment on above: Performed By: #### L ACT #### [place] [address] Risk Screen - Adult Emergenc [facility] 09-08-2022 Risk Screen - Adult Emergency Preferred [...] Learning Preferencesverbal instruction Cultural Considerationsnone Developmental Considerationsnone Buddhist Considerationsnone Learning Assessment (Other Learner): Learning Assessment (Other Learner): Other learner availableno Pressure Injury/TB/Substance: Pressure Injury: Do you have a coughno Smoking Statusnever smoker (1) Alcohol Usedenies(1) Drug Usedenies (1) Admission Risk Screen: Significant IndicatorsComplete CAGE: CAGE: Is this an injured patient at a Trauma Center ([facility]): no Electronic Signatures: Laurie Talamantes (RN) (Signed 08-Sep-2022 13:04) Authored: Preferred Language, Patient Preferred Pharmacy, Advanced Directives, Family Violence Adult, Learning Assessment (Patient), Learning Assessment (Other Learner), Pressure Injury/TB/Substance, Pressure Injury, CAGE Last Updated: 08-Sep-2022 13:04 by Laurie Talamantes (RN) References: 1. Data Referenced From Provider Note - ED v3 08-Sep-2022 12:38 Normal [facility] Triage - EDon 09-08-2022 Triage - ED Chart Review: PRIMARY ASSESSMENT ABCD Normal Findings: airway open and patent and alert and oriented ARRIVAL INFORMATION Means of Arrival: stretcher Mode of Arrival: ambulance Agency: [facility] Agency Name: karen Arrival From: home Accompanied By: self Language: Spoken Language Preferred: Mexican Reading Language Preferred: Mexican Present on Arrival: Device Present on Arrival to ED: no CHIEF COMPLAINT DARYN GUILLERMO is a Female patient with a chief [...] BMI (kg/m2): 46.102 Calculated BSA (m2) 2.46 [place] Coma Scale: Best Eye Response: (E4) spontaneous Best Motor Response: (M6) obeys commands Best Verbal Response: (V5) oriented Yahaira Score: 15 Allergies: no Patient has homicidal [...] Past Medical History, Active Electronic Signatures: Laurie Talamantes) (Signed 08-Sep-2022 13:01) Entered: Risk Screens, Pain, Arrival, ABCD, Travel History, Chart Review, Scores, Past Medical History Authored: Quick Triage, Risk Screens, Pain, Arrival, ABCD, Travel History, Chart Review, Scores, Past Medical History Last Updated: 08-Sep-2022 13:01 by Laurie Talamantes (RN) Normal [facility] UA MICROSCOPICon 09-08-2022 AMORPHOUS CRYSTAL 2+ /HPF Normal [facility] Comment on above: Performed By: #### C BCDF #### [address] [address] BACTERIA 2+ /HPF Abnormal [facility] Comment on above: Performed By: #### C BCDF #### [address] [address] RBC None Normal 0-5 [facility] Comment on above: Performed By: #### C BCDF #### [address] [address] WBC 64 /HPF Abnormal 0-5 [facility] Comment on above: Performed By: #### C BCDF #### [place] [id number] WBC CLUMPS RARE Normal [facility] Comment on above: Performed By: #### C BCDF #### [address] [address] URINALYSIS WITH CULTURE IF I NDICATEDon 09-08-2022 Appearance (U) HAZY Normal CLEAR [facility] Comment on above: Performed By: #### U ARFX #### [address] [address] Bilirubin Ql (U) Negative Normal NEGATIVE [facility] Comment on above: Performed By: #### U ARFX #### [address] [address] Color (U) Yellow Normal STRAW,YELLOW [facility] Comment on above: Performed By: #### U ARFX #### [address] [address] Glucose Ql (U) Negative Normal NEGATIVE [facility] Comment on above: Performed By: #### U ARFX #### [address] [address] Hemoglobin Ql (U) SMALL(1+) Abnormal NEGATIVE [facility] Comment on above: Performed By: #### U ARFX #### [address] [address] Ketones Ql (U) 5(TRACE) Abnormal NEGATIVE [facility] Comment on above: Performed By: #### U ARFX #### [address] [address] Leukocyte esterase Test strip Ql (U) LARGE(3+) Abnormal NEGATIVE [facility] [facility] Comment on above: Performed By: #### U ARFX #### [address] [address] Nitrite Ql (U) Negative Normal NEGATIVE [facility] Comment on above: Performed By: #### U ARFX #### [place] [id number] pH (U) 5.0 [pH] Normal 5.0 - 8.0 [facility] Comment on above: Performed By: #### U ARFX #### [place] [id number] Protein Ql (U) Negative Normal NEGATIVE [facility] Comment on above: Performed By: #### U ARFX #### [place] [id number] Specific gravity (U) [Rel density] 1.024 Normal 1.005 - 1.035 [facility] Comment on above: Performed By: #### U ARFX #### [place] [id number] Urobilinogen (U) [Mass/Vol] mg/dL Normal 0.0 - 1.9 [facility] Comment on above: Performed By: #### U ARFX #### [address] [address] URINE CULTURE,BACTERIALon URINE CULTURE,BACTERIAL PATIENT: DARYN GUILLERMO LOCATION: [address]#: [id number] : 49 AGE: SEX: F ORDERED BY: VERA HUANG SOURCE: URINE COLLECTED: 09/08/22 14:21 ANTIBIOTICS AT CAREN.: RECEIVED : 09/09/22 00:26 SITE: R E S U L T S URINE CULTURE,BACTERIAL FINAL 09/10/22 07:56 NO SIGNIFICANT GROWTH. Normal [facility] Comment on above: Performed By: #### C BCDF #### [facility] [address] [place] [address] US RENAL BILATon 09-08-2022 US RENAL BILAT Patient Name: DARYN GUILLERMO STUDY: US RENAL BILAT; 09/08/2022 6:46 pm INDICATION: UTI . COMPARISON: Renal ultrasound of 12/08/2019 and a three-phase CT scan of the kidneys done on 01/05/2020. ACCESSION NUMBER(S): [id number] ORDERING CLINICIAN: ANGELIQUE CLARKE TECHNIQUE: Multiple images [...] [facility] Medicare Annual Wellness Vis denysn 06-05-2022 Medicare Annual Wellness Visit *Chief Complaint [...] decisions. Additional Information: Nor[place]. No longer has H[facility]. She is doing [...] palliative care. 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 . She is realizing [...] and uses bedpan. [place] [facility] [place]. Has a walker but uses a wheelchair Hyperlipidemia - with DM treating this with Crestor. Good this time Lymphedema of leg - exercises have really helped to get this down. She has not been needing the compression wraps. Feels like (more content not included)... Normal [employer] Tobacco Screening.on 023 Adult depression screening assessment Yes [facility] [employer] Phone: Adult depression screening assessment No [facility] [employer] Phone: Fall risk assessment a) No falls within the last year [facility] [employer] Phone: Tobacco use status CPHS b) No [facility] Work Phone: Hemoglobin A1Con 06-01-2022 Glucose [Mass/Vol] 183 mg/dL [facility] Work Phone: HbA1c (Bld) [Mass fraction] 8.0 % Abnormal [facility] [employer] Phone: Comment on above: Diagnosis of Diabete s-Adults Non-Diabetic: < or = 5.6% Increased risk for developing diabetes: 5.7-6.4% Diagnostic of diabetes: > or = 6.5%. Monitoring of Diabetes Age (y) Therapeutic Goal (%) Adults: >18 <7.0 Pediatrics: 13-18 <7.5 7-12 <8.0 0- 6 7.5-8.5 [place] [employer]. Diabetes Care 33(S1), Apr 2009. Laboratory - Chemistry and C hemistry - challengeon 06-01-2022 Anion gap [Moles/Vol] 13 mmol/L 10 - 20 [facility] Work Phone: Calcium [Mass/Vol] 9.8 mg/dL 8.6 - 10.3 [facility] Work Phone: Chloride [Moles/Vol] 98 mmol/L 98 - 107 [facility] Work Phone: [phone] CO2 [Moles/Vol] 29 mmol/L 21 - 32 [facility] Work Phone: [phone] Creatinine [Mass/Vol] 0.86 mg/dL See Below [facility] Work Phone: [phone] Comment on above: Reference Range: 0.5 0 - 1.05 Glucose [Mass/Vol] 191 mg/dL above high threshold 74 - 99 [facility] Work Phone: Potassium [Moles/Vol] 4.7 mmol/L 3.5 - 5.3 [facility] Work Phone: Sodium [Moles/Vol] 135 mmol/L below low threshold 136 - 145 [facility] Work Phone: [phone] Urea nitrogen [Mass/Vol] 24 mg/dL above high threshold 6 - 23 [facility] Work Phone: Magnesium, Serumon 3 Magnesium [Mass/Vol] 1.62 mg/dL See Below [facility] Work Phone: Comment on above: Reference Range: 1.6 0 - 2.40 No Panel Informationon 06-01 71 {mL/min/1.73m2} >90 [facility] Work Phone: [phone] Comment on above: CALCULATIONS OF HANNAH MATED GFR ARE PERFORMED USING THE 2020 CKD-EPI STUDY REFIT EQUATION WITHOUT THE RACE VARIABLE FOR THE IDMS-TRACEABLE CREATININE METHODS.https://jasn.asnjournals.org/content//A SN.6590812818 Vitamin B12, Serumon 023 Cobalamin (Vitamin B12) [Mass/Vol] 539 pg/mL 211 - 911 [facility] Work Phone: [phone] Office Visit (Cardiology)on 05-24-2022 Follow-up visit Diagnoses/Problems Assessed Benign essential hypertension (401.1) (I10) Hyperlipidemia (272.4) (E78.5) Chief Complaint Longstanding persistent atrial fibrillation History of Present Fugnnfc82-xeyv-fda female with a medical history of morbid [...] (276.8) (E87.6) Internal hemorrhoid, bleeding (455.2) (K64.8) 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 Normal [employer] Tobacco Screening.on 023 Fall risk assessment a) No falls within the last year [employer] Work Phone: Tobacco use status [facility] b) No [employer] Work Phone: Office Visiton 03-07-2022 Follow-up visit [...] Oral Tablet Basic Metabolic Panel; Status:Active; Requested for:06Jun2022; Start: metFORMIN HCl - 500 MG Oral Tablet; TAKE 1 TABLET TWICE DAILY Hemoglobin A1C; Status:Active; Requested for:06Jun2022; Hyperlipidemia Renew: Rosuvastatin Calcium 10 MG Oral Tablet; Take 1 tablet daily Hypokalemia Renew: Potassium Chloride ER 10 MEQ Oral Capsule Extended Release; TAKE 1 CAPSULE Daily Magnesium deficiency Magnesium, Serum; Status:Active; Requested for:06Jun2022; Medication management Follow-up visit in 3 months Outpatient Follow-up Status: Hold For - Scheduling Requested for: 07Mar2022 Vitamin D deficiency Vitamin B12, Serum; Status:Active; Requested for:06Jun2022; Chief Complaint medck History of Present IllnessNo longer has [facility]. She is doing better and able [...] palliative care. 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 . She is realizing [...] Still cannot (more content not included)... Normal [employer] Tobacco Screening.on 022 Fall risk assessment a) No falls within the last year [facility] Work Phone: Tobacco use status CPHS b) No [facility] Work Phone: Hemoglobin A1Con 03-01-2022 Glucose [Mass/Vol] 157 mg/dL [facility] Work Phone: HbA1c (Bld) [Mass fraction] 7.1 % Abnormal [facility] Work Phone: Comment on above: Diagnosis of Diabete s-Adults Non-Diabetic: < or = 5.6% Increased risk for developing diabetes: 5.7-6.4% Diagnostic of diabetes: > or = 6.5%. Monitoring of Diabetes Age (y) Therapeutic Goal (%) Adults: >18 <7.0 Pediatrics: 13-18 <7.5 7-12 <8.0 0- 6 7.5-8.5 [place] [employer]. Diabetes Care 33(S1), Apr 2009. Laboratory - Chemistry and C hemistry - challengeon 03-01-2022 Albumin BCP dye [Mass/Vol] 3.7 g/dL 3.4 - 5.0 [facility] Work Phone: ALP [Catalytic activity/Vol] 122 U/L 33 - 136 [facility] Work Phone: ALT With P-5'-P [Catalytic activity/Vol] 8 U/L 7 - 45 [facility] Work Phone: Comment on above: Patients treated wit h Sulfasalazine may generate falsely decreased results for ALT. Anion gap [Moles/Vol] 11 mmol/L 10 - 20 [facility] Work Phone: AST With P-5'-P [Catalytic activity/Vol] 13 U/L 9 - 39 [facility] Work Phone: Bilirubin [Mass/Vol] 0.4 mg/dL 0.0 - 1.2 [facility] Work Phone: Calcium [Mass/Vol] 9.2 mg/dL 8.6 - 10.3 [facility] Work Phone: Chloride [Moles/Vol] 100 mmol/L 98 - 107 [facility] Work Phone: CO2 [Moles/Vol] 29 mmol/L 21 - 32 [facility] Work Phone: Creatinine [Mass/Vol] 0.83 mg/dL See Below [facility] Work Phone: Comment on above: Reference Range: 0.5 0 - 1.05 Glucose [Mass/Vol] 124 mg/dL above high threshold 74 - 99 [facility] Work Phone: Potassium [Moles/Vol] 4.0 mmol/L 3.5 - 5.3 [facility] Work Phone: Protein [Mass/Vol] 6.9 g/dL 6.4 - 8.2 [facility] Work Phone: Sodium [Moles/Vol] 136 mmol/L 136 - 145 [facility] Work Phone: Urea nitrogen [Mass/Vol] 20 mg/dL 6 - 23 [facility] Work Phone: Laboratory - Hematology and Cell countson 03-01-2022 Erythrocyte distribution width (RBC) [Ratio] 15.0 % above high threshold See Below [facility] Work Phone: Comment on above: Reference Range: 11. 5 - 14.5 Hematocrit (Bld) [Volume fraction] 33.5 % below low threshold See Below [facility] Work Phone: Comment on above: Reference Range: 36. 0 - 46.0 Hemoglobin (Bld) [Mass/Vol] 9.5 g/dL below low threshold See Below [facility] Work Phone: Comment on above: Reference Range: 12. 0 - 16.0 MCHC (RBC) [Mass/Vol] 28.4 g/dL below low threshold See Below [facility] Work Phone: Comment on above: Reference Range: 32. 0 - 36.0 MCV (RBC) [Entitic vol] 76 fL below low threshold 80 - 100 [facility] Work Phone: Platelets (Bld) [#/Vol] 309 10*3/uL 150 - 450 [facility] Work Phone: RBC (Bld) [#/Vol] 4.43 {x10E12/L} See Below [facility] Work Phone: Comment on above: Reference Range: 4.0 0 - 5.20 WBC (Bld) [#/Vol] 12.6 10*3/uL above high threshold 4.4 - 11.3 [facility] Work Phone: Lipid Panelon 03-01-2022 Cholesterol [Mass/Vol] 132 mg/dL 0 - 199 [facility] Work Phone: Comment on above: . [...] dosing. Cholesterol in HDL [Mass/Vol] 45.0 mg/dL [facility] Work Phone: Comment on above: . AGE VERY LOW LOW N ORMAL HIGH 0-19 Y < 35 < 40 40-45 ---- 20-24 Y ---- < 40 >45 ---- >24 Y ---- < 40 40-60 >60. Cholesterol in LDL [Mass/Vol] 64 mg/dL 0 - 99 [facility] Work Phone: Comment on above: . NEAR BORD AGE TESS RABLE OPTIMAL HIGH HIGH VERY HIGH 0-19 Y 0 - 109 --- 110-129 >/= 130 ---- 20-24 Y 0 - 119 --- 120-159 >/= 160 ---- >24 Y 0 - 99 100-129 130-159 160-189 >/=190. Cholesterol.total/Chol esterol in HDL [Mass ratio] 2.9 {ratio} [facility] Work Phone: Comment on above: REF VALUESDESIRABLE < 3.4HIGH RISK > 5.0 Triglyceride [Mass/Vol] 115 mg/dL 0 - 149 [facility] [employer] Phone: Comment on above: . AGE DESIRABLE [...] Lipid Panel 23 mg/dL 0 - 40 [facility] Work Phone: Magnesium, Serumon 2 Magnesium [Mass/Vol] 1.50 mg/dL below low threshold See Below [facility] Work Phone: Comment on above: Reference Range: 1.6 0 - 2.40 No Panel Informationon 03-01 74 {mL/min/1.73m2} >90 [facility] Work Phone: Comment on above: CALCULATIONS OF HANNAH MATED GFR ARE PERFORMED USING THE 2020 CKD-EPI STUDY REFIT EQUATION WITHOUT THE RACE VARIABLE FOR THE IDMS-TRACEABLE CREATININE METHODS.https://jasn.asnjournals.org/content/early/A .5170681566 Vitamin D 25-Hydroxyon 03-01 25-hydroxyvitamin D3 [Mass/Vol] 27 ng/mL Abnormal [facility] Work Phone: Comment on above: .DEFICIENCY: [...] 2, controlled Comprehensive Metabolic Panel; Status:Active; Requested for:44Ksh5465; Hemoglobin A1C; Status:Active; Requested for:97Mjp9968; Hyperlipidemia Lipid Panel; Status:Active; Requested for:12Fgr5390; Medication management Follow-up visit in 3 months Outpatient Follow-up Status: Hold For - Scheduling Requested for: [id number] 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 Verbal consent was requested and obtained from DARYN GUILLERMO on this date, 12/02/2021 03:30 PM , for a telehealth visit. medck History of Present IllnessNo longer has [facility]. Asthma - has been good on [...] palliative care. 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 She is realizing that she cannot do [...] and will (more content not included)... Normal [employer] Tobacco Screening.on 022 Fall risk assessment a) No falls within the last year [facility] Work Phone: Tobacco use status CP b) No [facility] Work Phone: Laboratory - Chemistry and C hemistry - challengeon 12-01-2021 Anion gap [Moles/Vol] 13 mmol/L 10 - 20 [facility] Work Phone: Calcium [Mass/Vol] 9.2 mg/dL 8.6 - 10.3 [facility] Work Phone: Chloride [Moles/Vol] 98 mmol/L 98 - 107 [facility] Work Phone: CO2 [Moles/Vol] 29 mmol/L 21 - 32 [facility] Work Phone: Creatinine [Mass/Vol] 0.88 mg/dL See Below [facility] Work Phone: Comment on above: Reference Range: 0.5 0 - 1.05 Glucose [Mass/Vol] 143 mg/dL above high threshold 74 - 99 [facility] Work Phone: Potassium [Moles/Vol] 4.0 mmol/L 3.5 - 5.3 [facility] Work Phone: Sodium [Moles/Vol] 136 mmol/L 136 - 145 [facility] Work Phone: Urea nitrogen [Mass/Vol] 20 mg/dL 6 - 23 [facility] Work Phone: No Panel Informationon 12-01 69 {mL/min/1.73m2} >90 [facility] Work Phone: Comment on above: CALCULATIONS OF HANNAH MATED GFR ARE PERFORMED USING THE 2020 CKD-EPI STUDY REFIT EQUATION WITHOUT THE RACE VARIABLE FOR THE IDMS-TRACEABLE CREATININE METHODS.https://jasn.asnjournals.org/content//A SN.7777907179 Cholesterol, Serumon 022 Cholesterol [Mass/Vol] 129 mg/dL 0 - 199 [facility] Work Phone: Comment on above: . [...] Hemoglobin A1Con 09-14-2021 Glucose [Mass/Vol] 148 mg/dL [facility] Work Phone: HbA1c (Bld) [Mass fraction] 6.8 % Abnormal [facility] Work Phone: Comment on above: Diagnosis of Diabete s-Adults Non-Diabetic: < or = 5.6% Increased risk for developing diabetes: 5.7-6.4% Diagnostic of diabetes: > or = 6.5%. Monitoring of Diabetes Age (y) Therapeutic Goal (%) Adults: >18 <7.0 Pediatrics: 13-18 <7.5 7-12 <8.0 0- 6 7.5-8.5 [place] [employer]. Diabetes Care 33(S1), Apr 2009. Laboratory - Chemistry and C hemistry - challengeon 09-14-2021 Albumin BCP dye [Mass/Vol] 3.7 g/dL 3.4 - 5.0 [facility] Work Phone: ALP [Catalytic activity/Vol] 97 U/L 33 - 136 [facility] Work Phone: ALT With P-5'-P [Catalytic activity/Vol] 13 U/L 7 - 45 [facility] Work Phone: Comment on above: Patients treated wit h Sulfasalazine may generate falsely decreased results for ALT. Anion gap [Moles/Vol] 12 mmol/L 10 - 20 [facility] Work Phone: [phone] AST With P-5'-P [Catalytic activity/Vol] 15 U/L 9 - 39 [facility] Work Phone: Bilirubin [Mass/Vol] 0.3 mg/dL 0.0 - 1.2 [facility] Work Phone: Calcium [Mass/Vol] 9.1 mg/dL 8.6 - 10.3 [facility] Work Phone: Chloride [Moles/Vol] 100 mmol/L 98 - 107 [facility] Work Phone: CO2 [Moles/Vol] 29 mmol/L 21 - 32 [facility] Work Phone: Creatinine [Mass/Vol] 0.81 mg/dL See Below [facility] Work Phone: Comment on above: Reference Range: 0.5 0 - 1.05 Glucose [Mass/Vol] 96 mg/dL 74 - 99 [facility] Work Phone: [phone] Potassium [Moles/Vol] 3.1 mmol/L below low threshold 3.5 - 5.3 [facility] Work Phone: Protein [Mass/Vol] 7.0 g/dL 6.4 - 8.2 [facility] Work Phone: Sodium [Moles/Vol] 138 mmol/L 136 - 145 [facility] Work Phone: Urea nitrogen [Mass/Vol] 24 mg/dL above high threshold 6 - 23 [facility] Work Phone: Laboratory - Drug toxicology on 09-14-2021 Amphetamines Screen Ql (U) Negative NEGATIVE [facility] Work Phone: Comment on above: CUTOFF LEVEL: 500 NG /ML Cross-reactivity has been reported with high concentrations of the following drugs: buproprion, chloroquine, chlorpromazine, ephedrine, mephentermine, fenfluramine, phentermine, phenylpropanolamine, pseudoephedrine, and propranolol. Barbiturates Screen Ql (U) Negative NEGATIVE [facility] Work Phone: Comment on above: CUTOFF LEVEL: 200 NG /ML Benzodiazepines Ql (U) Negative NEGATIVE [facility] Work Phone: Comment on above: CUTOFF LEVEL: 200 NG /ML Benzoylecgonine Screen Ql (U) Negative NEGATIVE [facility] Work Phone: Comment on above: CUTOFF LEVEL: 150 NG /ML Cannabinoids Screen Ql (U) Negative NEGATIVE [facility] Work Phone: Comment on above: CUTOFF LEVEL: 50 NG/ ML Methadone Screen Ql (U) Negative NEGATIVE [facility] Work Phone: Comment on above: CUTOFF LEVEL: 150 NG /ML The metabolite Z-xgxrf-ryreokykkuqyyp (LAAM) is not detected by this method in concentrations that would be found in the urine of patients on LAAM therapy. Opiates Screen Ql (U) Negative NEGATIVE [facility] Work Phone: Comment on above: CUTOFF LEVEL: 300 NG /ML The opiate screen does not detect fentanyl, meperidine, or tramadol. Oxycodone is not consistently detected (refer to Oxycodone Screen, Urine result). oxyCODONE+oxyMORphone Screen Ql (U) Negative NEGATIVE [facility] Work Phone: Comment on above: CUTOFF LEVEL: 100 NG /ML This test will accurately detect both oxycodone and oxymorphone. Phencyclidine Ql (U) Negative NEGATIVE [facility] Work Phone: Comment on above: CUTOFF LEVEL: 25 NG/ ML Cross-reactivity has been reported with dextromethorphan. No Panel Informationon 09-14 76 {mL/min/1.73m2} >90 [facility] Work Phone: Comment on above: CALCULATIONS OF HANNAH MATED GFR ARE PERFORMED USING THE 2020 CKD-EPI STUDY REFIT EQUATION WITHOUT THE RACE VARIABLE FOR THE IDMS-TRACEABLE CREATININE METHODS.https://jasn.asnjournals.org/content//A SN.1556635484 Negative NEGATIVE [facility] Work Phone: Comment on above: CUTOFF LEVEL: 1 NG/M L The performance characteristics of this test have been determined by the individual laboratory site where testing is performed. This test has not been cleared or approved by the FDA; however, the FDA has determined that such clearance is not necessary. SEE BELOW [facility] Work Phone: Comment on above: Drug [...] mg/dL above high threshold 0 - 149 [facility] Work Phone: Comment on above: [...] Diabetes mellitus type 2, controlled (250.00) (E11.9) [facility] prescription benzodiazepine use (V58.69) (Z79.899) Neurodermatitis (698.3) [...] INHALE 2 PUFFS EVERY 4 HOURS NEEDED [facility] prescription benzodiazepine use Drug Screen, Urine With Reflex To Confirmation; Status:Active; Requested for:01Sep2021; Medication management Follow-up visit in 3 months Outpatient Follow-up Status: Hold For - Scheduling Requested for: 01Sep2021 Home Care Referral Evaluation and Treatment Homebound, venous stasis and neurodermatitis ulcers. Blood work Status: Hold For - Scheduling Requested for: 01Sep2021 Call Results To: : [phone] if urgent Fax Results To: : [phone] Dr Gilman Lab Frequency: : every 3-6 months Lab Draw Start Date: : 06Sep2021 Specific Labs To Be Drawn : CMP, cholesterol, TG, A1C ,urine drug screen Labs: Must have a SN ordered to have labs drawn : Yes Home Health Aide: Must have ordered SN, PT or ST to have PRODUCT SAFETY PROFESSIONAL : No Fishing Manager: Must have ordered SN, PT or ST to have PRECISION GRINDER : No Occupational Therapy: Must have ordered SN, PT or ST to have OT : No Speech Therapy: Evaluation/Treat : No Physical Therapy: Evaluation/Treatment/Iman e Safety Assess : No Grimaldo Management: : No Is patient/caregiver willing to [...] Assess, Vital Signs, Disease Teaching : Yes [facility]ci: : Yes Date of Scvo-xo-Gewl Encounter: (Must be 90 days prior to start of care, if Telehealth must be Audio/Visual). : 01Sep2021 Homebound Status Reason: : Impaired mobility, instability, balance issues Homebound Status (Patient must be homebound if they have Medicare or commercial insurance, Not required for Medicaid) : Yes Requested Start of Care Date : >48 Hours Provider Impressions [facility] needed to draw blood and other [...] consent was requested and obtained from DARYN GUILLERMO on this date, 09/01/2021 11:30 AM , for a telehealth visit. [facility] certification F2F History of Present IllnessHas changed [facility] companies and needs new certification. She [...] insurance would like to get someone for [facility]. 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 She is realizing that she cannot do [...] or bu (more content not included)... Normal [employer] Tobacco Screening.on 022 Fall risk assessment a) No falls within the last year [facility] Work Phone: Tobacco use status CPHS b) No -[facility] Work Phone: Laboratory - Molecular patho logyon 07-25-2021 Noninvasive colorectal cancer DNA and occult blood screening Jd (Stl) [Interp] Negative Negative [facility] Work Phone: Comment on above: [employer] (CLIA #:[id number])[address] [place] [address] MILLA PICHARDO , Clinical Laboratory Medical DirectorNEGATIVE [...] (Sindhu Drake al, N Engl J Med 2014;370(14):5534-6844) The normal value (reference range) for this assay is negative.COLOGUARD RE-SCREENING RECOMMENDATION: Periodic colorectal cancer screening is an important part of preventive healthcare for asymptomatic individuals at average risk for colorectal cancer. Following a negative Cologuard result, the [place] [employer] Society and U.S. Multi-Society Task Force screening guidelines recommend a Cologuard re-screening interval of 3 years. References: [place] [employer] Guideline for Colorectal Cancer Screening: https://www.cancer.org/cancer/hlrib-oevhbr-ealkul/detection-casi gnosis-staging/acs-recommendations.html.; Quoc DK, Berna SILVA, Gaetano KwokK, Colorectal Cancer Screening: Recommendations for Physicians and Patients from the U.S. Multi-Society Task Force on Colorectal Cancer Screening , Am J Gastroenterology 2017; 112:1711-8635.TEST DESCRIPTION: Composite algorithmic analysis of stool DNA-biomarkers [...] (Sindhu Drake al, N Engl J Med 2014;370(14):8821-2826.) Cologuard may produce a false negative or false positive result (no colorectal cancer or precancerous polyp present at colonoscopy follow up). A negative Cologuard test result does not guarantee the absence of CRC or advanced adenoma (pre-cancer). The current Cologuard screening interval is every 3 years. ([place] [employer] Society and U.S. Multi-Society Task Force). Cologuard performance data in a 10,000 patient pivotal study using colonoscopy as the reference method can be accessed at the following location: www.Revert/results. Additional description of the Cologuard test process, warnings and precautions can be found at [email or web address] Laboratory - Molecular patho logyon 06-10-2021 Noninvasive colorectal cancer DNA and occult blood screening Jd (Stl) [Interp] Cancelled - Duplicate Order [facility] Work Phone: Office Visiton 06-09-2021 Follow-up [...] consent was requested and obtained from DARYN GUILLERMO on this date, 06/09/2021 01:00 PM , for a telehealth visit. [facility] Adult Risk Screening Depression/Suicide Screening: During [...] no longer. 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 Done with all of that. She is [...] few mon (more content not included)... Normal [employer] Tobacco Screening.on 022 Adult depression screening assessment Yes [facility] Work Phone: Fall risk assessment a) No falls within the last year [facility] [employer] Phone: Tobacco use status CPHS b) No [facility] Work Phone: Hemoglobin A1Con 06-07-2021 Glucose [Mass/Vol] 128 mg/dL [facility] Work Phone: HbA1c (Bld) [Mass fraction] 6.1 % Abnormal [facility] Work Phone: Comment on above: Diagnosis of Diabete s-Adults Non-Diabetic: < or = 5.6% Increased risk for developing diabetes: 5.7-6.4% Diagnostic of diabetes: > or = 6.5%. Monitoring of Diabetes Age (y) Therapeutic Goal (%) Adults: >18 <7.0 Pediatrics: 13-18 <7.5 7-12 <8.0 0- 6 7.5-8.5 [place] [employer]. Diabetes Care 33(S1), Apr 2009. Laboratory - Chemistry and C hemistry - challengeon 06-07-2021 Albumin BCP dye [Mass/Vol] 3.5 g/dL 3.4 - 5.0 [facility] Work Phone: ALP [Catalytic activity/Vol] 96 U/L 33 - 136 [facility] Work Phone: ALT With P-5'-P [Catalytic activity/Vol] 12 U/L 7 - 45 [facility] Work Phone: Comment on above: Patients treated wit h Sulfasalazine may generate falsely decreased results for ALT. Anion gap [Moles/Vol] 15 mmol/L 10 - 20 [facility] Work Phone: AST With P-5'-P [Catalytic activity/Vol] 17 U/L 9 - 39 [facility] Work Phone: Bilirubin [Mass/Vol] 0.3 mg/dL 0.0 - 1.2 [facility] Work Phone: Calcium [Mass/Vol] 9.3 mg/dL 8.6 - 10.3 [facility] Work Phone: Chloride [Moles/Vol] 97 mmol/L below low threshold 98 - 107 [facility] Work Phone: CO2 [Moles/Vol] 28 mmol/L 21 - 32 [facility] Work Phone: Creatinine [Mass/Vol] 0.99 mg/dL See Below [facility] Work Phone: Comment on above: Reference Range: 0.5 0 - 1.05 Glucose [Mass/Vol] 239 mg/dL above high threshold 74 - 99 [facility] Work Phone: Potassium [Moles/Vol] 4.1 mmol/L 3.5 - 5.3 [facility] Work Phone: Protein [Mass/Vol] 6.7 g/dL 6.4 - 8.2 [facility] Work Phone: [phone] Sodium [Moles/Vol] 136 mmol/L 136 - 145 [facility] Work Phone: Urea nitrogen [Mass/Vol] 22 mg/dL 6 - 23 [facility] Work Phone: Laboratory - Hematology and Cell countson 06-07-2021 Erythrocyte distribution width (RBC) [Ratio] 15.8 % above high threshold See Below [facility] Work Phone: Comment on above: Reference Range: 11. 5 - 14.5 Hematocrit (Bld) [Volume fraction] 35.8 % below low threshold See Below [facility] Work Phone: Comment on above: Reference Range: 36. 0 - 46.0 Hemoglobin (Bld) [Mass/Vol] 11.3 g/dL below low threshold See Below [facility] Work Phone: Comment on above: Reference Range: 12. 0 - 16.0 MCHC (RBC) [Mass/Vol] 31.4 g/dL below low threshold See Below [facility] Work Phone: Comment on above: Reference Range: 32. 0 - 36.0 MCV (RBC) [Entitic vol] 85 fL 80 - 100 [facility] Work Phone: [phone] Platelets (Bld) [#/Vol] 313 10*3/uL 150 - 450 [facility] Work Phone: [phone] RBC (Bld) [#/Vol] 4.23 {x10E12/L} See Below [facility] Work Phone: Comment on above: Reference Range: 4.0 0 - 5.20 WBC (Bld) [#/Vol] 13.8 10*3/uL above high threshold 4.4 - 11.3 [facility] Work Phone: Lipid Panelon 06-07-2021 Cholesterol [Mass/Vol] 193 mg/dL 0 - 199 [facility] Work Phone: Comment on above: . [...] dosing. Cholesterol in HDL [Mass/Vol] 45.0 mg/dL [facility] Work Phone: Comment on above: . AGE VERY LOW LOW N ORMAL HIGH 0-19 Y < 35 < 40 40-45 ---- 20-24 Y ---- < 40 >45 ---- >24 Y ---- < 40 40-60 >60. Cholesterol in LDL [Mass/Vol] 108 mg/dL above high threshold 0 - 99 [facility] Work Phone: Comment on above: . NEAR BORD AGE TESS RABLE OPTIMAL HIGH HIGH VERY HIGH 0-19 Y 0 - 109 --- 110-129 >/= 130 ---- 20-24 Y 0 - 119 --- 120-159 >/= 160 ---- >24 Y 0 - 99 100-129 130-159 160-189 >/=190. Cholesterol.total/Chol esterol in HDL [Mass ratio] 4.3 {ratio} [facility] Work Phone: Comment on above: REF VALUESDESIRABLE < 3.4HIGH RISK > 5.0 Triglyceride [Mass/Vol] 198 mg/dL above high threshold 0 - 149 [facility] Work Phone: Comment on above: . [...] Lipid Panel 40 mg/dL 0 - 40 [facility] Work Phone: No Panel Informationon 06-07 60 {mL/min/1.73m2} >90 [facility] Work Phone: Comment on above: CALCULATIONS OF HANNAH MATED GFR ARE PERFORMED USING THE 2020 CKD-EPI STUDY REFIT EQUATION WITHOUT THE RACE VARIABLE FOR THE IDMS-TRACEABLE CREATININE METHODS.https://jasn.asnjournals.org/content//A SN.4938492314 Vitamin B12, Serumon 022 Cobalamin (Vitamin B12) [Mass/Vol] 697 pg/mL 211 - 911 [facility] Work Phone: Vitamin D 25-Hydroxyon 06-07 25-hydroxyvitamin D3 [Mass/Vol] 30 ng/mL [facility] Work Phone: Comment on above: .DEFICIENCY: < 20 NG /MLINSUFFICIENCY: 20-29 NG/MLSUFFICIENCY: 30-100 NG/MLTHIS ASSAY ACCURATELY QUANTIFIES THE SUM OFVITAMIN D3, 25-HYDROXY AND VIT D2,25-HYDROXY. Laboratory - Chemistry and C hemistry - challengeon 02-04-2021 Creatinine (Body fld) [Mass/Vol] 65.0 mg/dL [facility] Work Phone: Comment on above: A urine creatinine r esult >= 20 mg/dL is considered valid without suspicion of dilution. Samples with results below this range will automatically reflex to specific gravity testing to verify specimen integrity. Laboratory - Drug toxicology on 02-04-2021 1-Hydroxymidazolam Confirm (U) [Mass/Vol] <25 Cutoff <25 [facility] Work Phone: 5-Icijzkpdwv-2,5-Dimet hyl-3,3-Diphenylpyrrol idine (EDDP) Confirm (U) [Mass/Vol] <25 Cutoff <25 [facility] Work Phone: Comment on [...] (6-EDDIE) Confirm (U) [Mass/Vol] <25 Cutoff <25 [facility] Work Phone: 7-Aminoclonazepam Confirm (U) [Mass/Vol] <25 Cutoff <25 [facility] Work Phone: Alpha hydroxyalprazolam Confirm (U) [Mass/Vol] <25 Cutoff <25 [facility] Work Phone: ALPRAZolam Confirm (U) [Mass/Vol] <25 Cutoff <25 [facility] Work Phone: Amphetamines Screen Ql (U) Negative NEGATIVE [facility] Work Phone: Comment on above: CUTOFF LEVEL: 500 NG /ML Cross-reactivity has been reported with high concentrations of the following drugs: buproprion, chloroquine, chlorpromazine, ephedrine, mephentermine, fenfluramine, phentermine, phenylpropanolamine, pseudoephedrine, and propranolol. Barbiturates Screen Ql (U) Negative NEGATIVE [facility] Work Phone: Comment on above: CUTOFF LEVEL: 200 NG /ML Benzoylecgonine Screen Ql (U) Negative NEGATIVE [facility] Work Phone: Comment on above: CUTOFF LEVEL: 150 NG /ML Cannabinoids Screen Ql (U) Positive Abnormal NEGATIVE [facility] Work Phone: Comment on above: CUTOFF LEVEL: 50 NG/ ML Carboxy tetrahydrocannabinol (U) [Mass/Vol] >500 [facility]: Comment on above: INTERPRETIVE INFORMA TION: THC Metabolite, Urine, QuantitativeMethodology: Quantitative Liquid Chromatography-Tandem Mass SpectrometryPositive cutoff: 15 ng/mLFor medical purposes only; not valid for forensic use.The drug analyte detected in this assay, 9-carboxy THC, is a metabolite of lhfhh-1-uncdlbtfnvyhvlxnhjzg (THC). Detection of 9-carboxy THC suggests use [...] developed and its performance characteristics determined by [employer]. It has not been cleared or approved by the US Food and Drug Administration. This test was performed in a CLIA certified laboratory and is intended for clinical purposes.Performed By: [employer] [place] [address] [id number] Director: Pearl Deng MD [email or web address] Confirm (U) [Mass/Vol] <25 Cutoff <25 [facility] Work Phone: clonazePAM Confirm (U) [Mass/Vol] <25 Cutoff <25 [facility] Work Phone: Codeine Confirm (U) [Mass/Vol] <50 Cutoff <50 [facility] Work Phone: diazePAM Confirm (U) [Mass/Vol] <25 Cutoff <25 [facility] Work Phone: fentaNYL Confirm (U) [Mass/Vol] <2.5 Cutoff<2.5 [facility] Work Phone: HYDROcodone Confirm (U) [Mass/Vol] <25 Cutoff <25 [facility] Work Phone: HYDROmorphone Confirm (U) [Mass/Vol] <25 Cutoff <25 [facility] Work Phone: LORazepam Confirm (U) [Mass/Vol] 544 ng/mL Abnormal Cutoff <25 [facility] Work Phone: Comment on above: Consistent with use of a drug containing lorazepam, such as Ativan. Methadone Confirm (U) [Mass/Vol] <25 Cutoff <25 [facility] Work Phone: Midazolam Confirm (U) [Mass/Vol] <25 Cutoff <25 [facility] Work Phone: Morphine Confirm (U) [Mass/Vol] <50 Cutoff <50 [facility] Work Phone: Nordiazepam Confirm (U) [Mass/Vol] <25 Cutoff <25 [facility] Work Phone: Norfentanyl Confirm (U) [Mass/Vol] <2.5 Cutoff<2.5 [facility] Work Phone: Comment on above: [...] Norhydrocodone Confirm (U) [Mass/Vol] <25 Cutoff <25 [facility] Work Phone: Noroxycodone Confirm (U) [Mass/Vol] <25 Cutoff <25 [facility] Work Phone: Nortramadol (U) [Mass/Vol] <50 Cutoff <50 [facility] Work Phone: Comment on above: [...] Oxazepam Confirm (U) [Mass/Vol] <25 Cutoff <25 [facility] Work Phone: oxyCODONE Confirm (U) [Mass/Vol] <25 Cutoff <25 [facility] Work Phone: oxyMORphone Confirm (U) [Mass/Vol] <25 Cutoff <25 [facility] Work Phone: Comment on above: [...] laboratory testing. Phencyclidine Ql (U) Negative NEGATIVE [facility] Work Phone: Comment on above: CUTOFF LEVEL: 25 NG/ ML Cross-reactivity has been reported with dextromethorphan. Temazepam Confirm (U) [Mass/Vol] <25 Cutoff <25 [facility] Work Phone: Comment on above: [...] traMADol Confirm (U) [Mass/Vol] <50 Cutoff <50 [facility] Work Phone: Zolpidem (U) [Mass/Vol] <25 Cutoff <25 [facility] Work Phone: No Panel Informationon 02-04 SEE BELOW [facility] Work Phone: Comment on above: Drug [...] the laboratory medical directors. <25 Cutoff <25 [facility] Work Phone: Comment on [...] more fall s in the last year [facility] Work Phone: Tobacco use status CPHS b) No [facility] Work Phone: Laboratory - Molecular patho logyon 11-05-2020 Noninvasive colorectal cancer DNA and occult blood screening Jd (Stl) [Interp] Cancelled - Duplicate Order [facility] Work Phone: Tobacco Screening.on Fall risk assessment b) One or more fall s in the last year [facility] Work Phone: Tobacco use status CPHS b) No [facility] Work Phone: Tobacco Screening.on 021 Fall risk assessment b) One or more fall s in the last year [facility] Work Phone: Tobacco use status CP b) No [facility] Work Phone: HEMOGLOBIN A1Con 10-21-2020 Glucose [Mass/Vol] 143 mg/dL Normal [facility] Comment on above: Performed By: #### H BA1E #### [facility] [address] [place] [address] HbA1c (Bld) [Mass fraction] 6.6 % Normal [facility] Comment on above: Result Comment: Diag nosis of Diabetes-Adults Non-Diabetic: < or = 5.6% Increased risk for developing diabetes: 5.7-6.4% Diagnostic of diabetes: > or = 6.5% . Monitoring of Diabetes Age (y) Therapeutic Goal (%) Adults: >18 <7.0 Pediatrics: 13-18 <7.5 7-12 <8.0 0- 6 7.5-8.5 [place] [employer]. Diabetes Care 33(S1), Apr 2009. Performed By: #### H BA1E #### [facility] [address] [place] [address] CBCon 10-20-2020 Erythrocyte distribution width (RBC) [Ratio] 15.2 % High 11.5 - 14.5 [facility] Comment on above: Performed By: #### C BC #### [address] [id number] Hematocrit (Bld) [Volume fraction] 42.4 % Normal 36.0 - 46.0 [facility] Comment on above: Performed By: #### C BC #### [address] [id number] Hemoglobin (Bld) [Mass/Vol] 12.8 g/dL Normal 12.0 - 16.0 [facility] Comment on above: Performed By: #### C BC #### [address] [id number] MCHC (RBC) [Mass/Vol] 30.2 g/dL Low 32.0 - 36.0 [facility] Comment on above: Performed By: #### C BC #### [address] [id number] MCV (RBC) [Entitic vol] 85 fL Normal 80 - 100 [facility] Comment on above: Performed By: #### C BC #### [address] [id number] Platelets (Bld) [#/Vol] 306 10*3/uL Normal 150 - 450 [facility] Comment on above: Performed By: #### C BC #### [address] [id number] RBC 4.97 x10E12/L Normal 4.00 - 5.20 [facility] Comment on above: Performed By: #### C BC #### [address] [id number] WBC (Bld) [#/Vol] 12.9 10*3/uL High 4.4 - 11.3 [facility] Comment on above: Performed By: #### C BC #### [address] [id number] Hemoglobin A1Con 10-20-2020 Glucose [Mass/Vol] 143 mg/dL [facility] Work Phone: HbA1c (Bld) [Mass fraction] 6.6 % [facility] Work Phone: Comment on above: Diagnosis of Diabete s-Adults Non-Diabetic: < or = 5.6% Increased risk for developing diabetes: 5.7-6.4% Diagnostic of diabetes: > or = 6.5%. Monitoring of Diabetes Age (y) Therapeutic Goal (%) Adults: >18 <7.0 Pediatrics: 13-18 <7.5 7-12 <8.0 0- 6 7.5-8.5 [place] [employer]. Diabetes Care 33(S1), Apr 2009. Laboratory - Hematology and Cell countson 10-20-2020 Erythrocyte distribution width (RBC) [Ratio] 15.2 % above high threshold See Below [facility] Work Phone: Comment on above: Reference Range: 11. 5 - 14.5 Hematocrit (Bld) [Volume fraction] 42.4 % See Below [facility] Work Phone: Comment on above: Reference Range: 36. 0 - 46.0 Hemoglobin (Bld) [Mass/Vol] 12.8 g/dL See Below [facility] Work Phone: [phone] Comment on above: Reference Range: 12. 0 - 16.0 MCHC (RBC) [Mass/Vol] 30.2 g/dL below low threshold See Below [facility] Work Phone: Comment on above: Reference Range: 32. 0 - 36.0 MCV (RBC) [Entitic vol] 85 fL 80 - 100 [facility] Work Phone: [phone] Platelets (Bld) [#/Vol] 306 10*3/uL 150 - 450 [facility] Work Phone: [phone] RBC (Bld) [#/Vol] 4.97 {x10E12/L} See Below [facility] Work Phone: [phone] Comment on above: Reference Range: 4.0 0 - 5.20 WBC (Bld) [#/Vol] 12.9 10*3/uL above high threshold 4.4 - 11.3 [facility] Work Phone: MAGNESIUMon 10-20-2020 Magnesium [Mass/Vol] 1.50 mg/dL Low 1.60 - 2.40 [facility] Comment on above: Performed By: #### M G #### [address] [id number] Magnesium, Serumon Magnesium [Mass/Vol] 1.50 mg/dL below low threshold See Below [facility] Work Phone: Comment on above: Reference Range: 1.6 0 - 2.40 RENAL FUNCTION PANELon 10-20 Albumin [Mass/Vol] 4.0 g/dL Normal 3.4 - 5.0 [facility] Comment on above: Performed By: #### R ENAL #### [address] [id number] Anion gap [Moles/Vol] 14 mmol/L Normal 10 - 20 [facility] Comment on above: Performed By: #### R ENAL #### [address] [id number] Calcium [Mass/Vol] 9.4 mg/dL Normal 8.6 - 10.3 [facility] Comment on above: Performed By: #### R ENAL #### [address] [id number] Chloride [Moles/Vol] 98 mmol/L Normal 98 - 107 [facility] Comment on above: Performed By: #### R ENAL #### [address] [id number] Creatinine [Mass/Vol] 0.97 mg/dL Normal 0.50 - 1.05 [facility] Comment on above: Performed By: #### R ENAL #### [address] [id number] GFR- AM. 68 mL/min/1.73m2 Normal >60 [facility] Comment on above: Result Comment: CALC ULATIONS OF ESTIMATED GFR ARE PERFORMED USING THE MDRD STUDY EQUATION FOR THE IDMS-TRACEABLE CREATININE METHODS. CLIN CHEM 2007;53:766-72 Performed By: #### R ENAL #### [address] [id number] GFR-NON AM. 56 mL/min/1.73m2 Abnormal >60 [facility] Comment on above: Performed By: #### R ENAL #### [address] [id number] Glucose [Mass/Vol] 79 mg/dL Normal 74 - 99 [facility] Comment on above: Performed By: #### R ENAL #### [address] [id number] HCO3 (Bld) [Moles/Vol] 30 mmol/L Normal 21 - 32 [facility] Comment on above: Performed By: #### R ENAL #### [address] [id number] Phosphate [Mass/Vol] 3.3 mg/dL Normal 2.5 - 4.9 [facility] Comment on above: Result Comment: The performance characteristics of phosphorus testing in heparinized plasma have been validated by the individual laboratory site where testing is performed. Testing on heparinized plasma is not approved by the FDA; however, such approval is not necessary. Performed By: #### R ENAL #### [address] [id number] Potassium [Moles/Vol] 4.2 mmol/L Normal 3.5 - 5.3 [facility] Comment on above: Performed By: #### R ENAL #### [address] [id number] Sodium [Moles/Vol] 138 mmol/L Normal 136 - 145 [facility] Comment on above: Performed By: #### R ENAL #### [address] [id number] Urea nitrogen [Mass/Vol] 20 mg/dL Normal 6 - 23 [facility] Comment on above: Performed By: #### R ENAL #### [address] [id number] Renal Function Panelon 10-20 Albumin BCP dye [Mass/Vol] 4.0 g/dL 3.4 - 5.0 [facility] Work Phone: Anion gap [Moles/Vol] 14 mmol/L 10 - 20 [facility] Work Phone: Calcium [Mass/Vol] 9.4 mg/dL 8.6 - 10.3 [facility] Work Phone: Chloride [Moles/Vol] 98 mmol/L 98 - 107 [facility] Work Phone: CO2 [Moles/Vol] 30 mmol/L 21 - 32 [facility] Work Phone: Creatinine [Mass/Vol] 0.97 mg/dL See Below [facility] Work Phone: [phone] Comment on above: Reference Range: 0.5 0 - 1.05 Glucose [Mass/Vol] 79 mg/dL 74 - 99 [facility] Work Phone: Phosphate [Mass/Vol] 3.3 mg/dL 2.5 - 4.9 [facility] Work Phone: Comment on above: The performance klaus acteristics of phosphorus testing in heparinized plasma have been validated by the individual laboratory site where testing is performed. Testing on heparinized plasma is not approved by the FDA; however, such approval is not necessary. Potassium [Moles/Vol] 4.2 mmol/L 3.5 - 5.3 [facility] Work Phone: [phone] Sodium [Moles/Vol] 138 mmol/L 136 - 145 [facility] Work Phone: [phone] Urea nitrogen [Mass/Vol] 20 mg/dL 6 - 23 [facility] Work Phone: Renal Function Panel 68 {mL/min/1.73m2} >60 [facility] Work Phone: [phone] Comment on above: CALCULATIONS OF HANNAH MATED GFR ARE PERFORMED USING THE MDRD STUDY EQUATION FOR THE IDMS-TRACEABLE CREATININE METHODS. CLIN CHEM 2007;53:766-72 Renal Function Panel 56 {mL/min/1.73m2} Abnormal >60 [facility] Work Phone: [phone] VITAMIN D, 25-HYDROXYon 10-07 VITAMIN D, 25-HYDROXY 20 ng/mL Abnormal [facility] Comment on above: Result Comment: . DEFICIENCY: < 20 NG/ML INSUFFICIENCY: 20-29 NG/ML SUFFICIENCY: 30-100 NG/ML THIS ASSAY ACCURATELY QUANTIFIES THE SUM OF VITAMIN D3, 25-HYDROXY AND VIT D2,25-HYDROXY. Performed By: #### V TDOH #### [address] [id number] Vitamin D 25-Hydroxyon 10-20 25-hydroxyvitamin D3 [Mass/Vol] 20 ng/mL Abnormal [facility] Work Phone: Comment on above: .DEFICIENCY: < 20 NG /MLINSUFFICIENCY: 20-29 NG/MLSUFFICIENCY: 30-100 NG/MLTHIS ASSAY ACCURATELY QUANTIFIES THE SUM OFVITAMIN D3, 25-HYDROXY AND VIT D2,25-HYDROXY. Tobacco Screening.on 021 Fall risk assessment b) One or more fall s in the last year [facility] Work Phone: Tobacco use status CPHS b) No [facility] Work Phone: Metabolic Panelon 12-08-2019 Anion gap [Moles/Vol] 13 mmol/L 10 - 20 [facility] [place] [address] DO Work Phone: Calcium [Mass/Vol] 9.1 mg/dL 8.6 - 10.3 [facility] [place] [place] [address] DO Work Phone: Chloride [Moles/Vol] 99 mmol/L 98 - 107 [facility] [place] [address] DO Work Phone: CO2 [Moles/Vol] 26 mmol/L 21 - 32 [facility] [place] [address] DO Work Phone: Creatinine [Mass/Vol] 1.14 mg/dL above high threshold See Below [facility] [place] [address] DO Work Phone: Comment on above: Reference Range: 0.5 0 - 1.05 Glucose [Mass/Vol] 153 mg/dL above high threshold 74 - 99 [facility] 3 DO Work Phone: Potassium [Moles/Vol] 3.8 mmol/L 3.5 - 5.3 [facility] [place] [address] DO Work Phone: [phone] Sodium [Moles/Vol] 134 mmol/L below low threshold 136 - 145 [facility] [place] [address] [place] Work Phone: Urea nitrogen [Mass/Vol] 32 mg/dL above high threshold 6 - 23 [facility] [address] DO Work Phone: Otheron 12-08-2019 57 {mL/min/1.73m2} Abnormal >60 [facility] [place] [place] [address] DO Work Phone: Comment on above: CALCULATIONS OF HANNAH MATED GFR ARE PERFORMED USING THE MDRD STUDY EQUATION FOR THE IDMS-TRACEABLE CREATININE METHODS. CLIN CHEM 2007;53:766-72 47 {mL/min/1.73m2} Abnormal >60 [facility] [place] [address] DO Work Phone: US Kidney - bilateral Please click on th e link to view the study images Normal -[facility] [place] [address] DO Work Phone: Total Protein, Urine Spoton 12-08-2019 Creatinine (U) [Mass/Vol] 162.0 mg/dL See Below [place] [address] [place] Work Phone: Comment on above: Reference Range: 20. 0 - 320.0 Protein (U) [Mass/Vol] 44 mg/dL above hig h threshold 5 - 24 [place] [address] [place] Work Phone: Protein/Creatinine (U) [Ratio] 0.27 {mg/mg_Creat} above high threshold See Below -[facility] [address] DO Work Phone: Comment on above: Reference Range: 0.0 0 - 0.17 Uric Acid, Serumon 08-31-202 0 Urate [Mass/Vol] 8.6 mg/dL above high threshold 2.3 - 6.7 [facility] [place] [address] DO Work Phone: Comment on above: Venipuncture immedia tely after or during the administration of Metamizole may lead to falsely low results. Testing should be performed immediately prior to Metamizole dosing. Urinalysison 12-08-2019 Appearance (U) HAZY CLEAR [facility] [place] [address] DO Work Phone: [phone] Color (U) Yellow See Below -[facility] [place] [address] DO Work Phone: [phone] Comment on above: Reference Range: STR AW,YELLOW Glucose Ql (U) Negative NEGATIVE [facility] [place] [address] DO Work Phone: [phone] Ketones Ql (U) Negative NEGATIVE [facility] [place] [address] DO Work Phone: [phone] Leukocyte esterase Test strip Ql (U) TRACE Abnormal NEGATIVE -[facility] [place] [address] DO Work Phone: [phone] pH (U) 5.0 [pH] 5.0 - 8.0 [facility] [place] [address] DO Work Phone: [phone] Protein (U) [Mass/Vol] 30(1+) Abnormal NEGATIVE [facility] [place] [address] DO Work Phone: [phone] RBC (U) [#/Vol] Negative NEGATIVE [place]ro [place] [address] DO Work Phone: [phone] Specific gravity (U) [Rel density] 1.018 See Below -Nephrolo [place] [address] DO Work Phone: Comment on above: Reference Range: 1.0 05 - 1.035 Urinalysis Negative NEGATIVE MP-Nephrolo [facility] 3 DO Work Phone: [phone] Urinalysis <2.0 0.0 - 1.9 MP-Nephrolo gy-[facility] Edwin 3 DO Work Phone: Urinalysis, Microscopicon Urinalysis, Microscopic 3+ Abnormal MP-Nephrolo [facility] Edwin 3 DO Work Phone: Urinalysis, Microscopic 4 {/HPF} 0-5 MP-Nephrolo -[facility] Edwin 3 DO Work Phone: Urinalysis, Microscopic 1 {/HPF} 0-5 MP-Nephrolo -[facility] Edwin 3 DO Work Phone: Urinalysis, Microscopic 9 {/HPF} MP-Nephrolo -[facility] 3 DO Work Phone: Urinalysis, Microscopic 1+ MP-Nephrolo [facility] 3 DO Work Phone: Hemoglobin A1Con 10-30-2019 HbA1c (Bld) [Mass fraction] 128 {MG/DL} [facility] Work Phone: HbA1c (Bld) [Mass fraction] 6.1 % [facility] Work Phone: Comment on above: Diagnosis of Diabete s-Adults Non-Diabetic: < or = 5.6% Increased risk for developing diabetes: 5.7-6.4% Diagnostic of diabetes: > or = 6.5%. Monitoring of Diabetes Age (y) Therapeutic Goal (%) Adults: >18 <7.0 Pediatrics: 13-18 <7.5 7-12 <8.0 0- 6 7.5-8.5 [place] [employer]. Diabetes Care 33(S1), Apr 2009. Metabolic Panelon 10-30-2019 Anion gap [Moles/Vol] 12 mmol/L 10 - 20 [facility] Work Phone: Calcium [Mass/Vol] 9.2 mg/dL 8.6 - 10.3 [facility] Work Phone: Chloride [Moles/Vol] 103 mmol/L 98 - 107 [facility] Work Phone: CO2 [Moles/Vol] 26 mmol/L 21 - 32 [facility] Work Phone: Creatinine [Mass/Vol] 1.36 mg/dL above high threshold See Below [facility] Work Phone: Comment on above: Reference Range: 0.5 0 - 1.05 Glucose [Mass/Vol] 148 mg/dL above high threshold 74 - 99 [facility] Work Phone: Potassium [Moles/Vol] 3.9 mmol/L 3.5 - 5.3 [facility] Work Phone: Sodium [Moles/Vol] 137 mmol/L 136 - 145 [facility] Work Phone: Urea nitrogen [Mass/Vol] 27 mg/dL above high threshold 6 - 23 [facility] Work Phone: Otheron 10-30-2019 1-Hydroxymidazolam Confirm (U) [Mass/Vol] <25 Cutoff <25 [facility] Work Phone: 9-Wcdzhpsijw-6,5-Dimet hyl-3,3-Diphenylpyrrol idine (EDDP) Confirm (U) [Mass/Vol] <25 Cutoff <25 [facility] Work Phone: Comment on above: The [...] (6-EDDIE) Confirm (U) [Mass/Vol] <25 Cutoff <25 [facility] Work Phone: 7-Aminoclonazepam Confirm (U) [Mass/Vol] <25 Cutoff <25 [facility] Work Phone: Alpha hydroxyalprazolam Confirm (U) [Mass/Vol] <25 Cutoff <25 [facility] Work Phone: Alprazolam Confirm (U) [Mass/Vol] <25 Cutoff <25 [facility] Work Phone: Amphetamines Screen Ql (U) Negative NEGATIVE [facility] Work Phone: Comment on above: CUTOFF LEVEL: 500 NG /ML Cross-reactivity has been reported with high concentrations of the following drugs: buproprion, chloroquine, chlorpromazine, ephedrine, mephentermine, fenfluramine, phentermine, phenylpropanolamine, pseudoephedrine, and propranolol. Benzoylecgonine Screen Ql (U) Negative NEGATIVE [facility] Work Phone: Comment on above: CUTOFF LEVEL: 150 NG /ML Chlordiazepoxide Confirm (U) [Mass/Vol] <25 Cutoff <25 [facility] Work Phone: Clonazepam Confirm (U) [Mass/Vol] <25 Cutoff <25 [facility] Work Phone: Codeine Confirm (U) [Mass/Vol] <50 Cutoff <50 [facility] Work Phone: Creatinine (Body fld) [Mass/Vol] 92.6 mg/dL [facility] Work Phone: Comment on above: A urine creatinine r esult >= 20 mg/dL is considered valid without suspicion of dilution. Samples with results below this range will automatically reflex to specific gravity testing to verify specimen integrity. Diazepam Confirm (U) [Mass/Vol] <25 Cutoff <25 [facility] Work Phone: Fentanyl Confirm (U) [Mass/Vol] <2.5 Cutoff<2.5 [facility] Work Phone: Hydrocodone Confirm (U) [Mass/Vol] <25 Cutoff <25 [facility] Work Phone: Hydromorphone Confirm (U) [Mass/Vol] <25 Cutoff <25 [facility] Work Phone: Lorazepam Confirm (U) [Mass/Vol] 696 ng/mL Abnormal Cutoff <25 [facility] Work Phone: Comment on above: Consistent with use of a drug containing lorazepam, such as Ativan. Methadone Confirm (U) [Mass/Vol] <25 Cutoff <25 [facility] Work Phone: Midazolam Confirm (U) [Mass/Vol] <25 Cutoff <25 [facility] Work Phone: Morphine Confirm (U) [Mass/Vol] <50 Cutoff <50 [facility] Work Phone: Nordiazepam Confirm (U) [Mass/Vol] <25 Cutoff <25 [facility] Work Phone: Norfentanyl Confirm (U) [Mass/Vol] <2.5 Cutoff<2.5 [facility] Work Phone: Comment on above: The [...] Confirm (U) [Mass/Vol] <25 Cutoff <25 [facility] Work Phone: Noroxycodone Confirm (U) [Mass/Vol] <25 Cutoff <25 [facility] Work Phone: Nortramadol (U) [Mass/Vol] <50 Cutoff <50 [facility] Work Phone: Comment on above: The [...] Confirm (U) [Mass/Vol] <25 Cutoff <25 [facility] Work Phone: Oxycodone Confirm (U) [Mass/Vol] <25 Cutoff <25 [facility] Work Phone: Oxymorphone Confirm (U) [Mass/Vol] <25 Cutoff <25 [facility] Work Phone: Comment on above: The [...] Temazepam Confirm (U) [Mass/Vol] <25 Cutoff <25 [facility] Work Phone: Comment on above: The [...] Tramadol Confirm (U) [Mass/Vol] <50 Cutoff <50 [facility] Work Phone: Zolpidem (U) [Mass/Vol] <25 Cutoff <25 [facility] Work Phone: SEE BELOW [facility] Work Phone: Comment on above: Drug [...] the laboratory medical directors. <25 Cutoff <25 [facility] Work Phone: Comment on above: The [...] clinical laboratory testing. 46 {mL/min/1.73m2} Abnormal >60 [facility] Work Phone: Comment on above: CALCULATIONS OF HANNAH MATED GFR ARE PERFORMED USING THE MDRD STUDY EQUATION FOR THE IDMS-TRACEABLE CREATININE METHODS. CLIN CHEM 2007;53:766-72 38 {mL/min/1.73m2} Abnormal >60 [facility] Work Phone: Urinalysison 10-30-2019 Barbiturates Screen Ql (U) Negative NEGATIVE [facility] Work Phone: Comment on above: CUTOFF LEVEL: 200 NG /ML Cannabinoids Screen Ql (U) Negative NEGATIVE [facility] Work Phone: Comment on above: CUTOFF LEVEL: 50 NG/ ML Phencyclidine Ql (U) Negative NEGATIVE [facility] Work Phone: Comment on above: CUTOFF LEVEL: 25 NG/ ML Cross-reactivity has been reported with dextromethorphan. Vitamin B12, Serumon 020 Cobalamin (Vitamin B12) [Mass/Vol] 307 pg/mL 211 - 911 [facility] Work Phone: Vitamin D 25-Hydroxyon 10-29 Calcidiol [Mass/Vol] 15 ng/mL Abnormal [facility] Work Phone: Comment on above: .DEFICIENCY: < 20 NG /MLINSUFFICIENCY: 20-29 NG/MLSUFFICIENCY: 30-100 NG/MLTHIS ASSAY ACCURATELY QUANTIFIES THE SUM OFVITAMIN D3, 25-HYDROXY AND VIT D2,25-HYDROXY. Mamm - Screening Mammogram w / Tomosynthesison 02-14-2019 MG Breast screening Interpreted by: MERNA JIMENEZ02/16/19 17:42MRN: [id number] Name: DARYN GUILLERMO STUDY:DIGITAL MAMM SCREENING W/ TAMI; 02/14/2019 12:10 pm ORDERING CLINICIAN:HUAN GILMAN INDICATION:Screening. COMPARISON:10/01/2015, 01/07/2015 FINDINGS:2D and tomosynthesis images were reviewed at 1 mm slice thickness. The breast tissue is almost entirely fatty. No suspicious masses orcalcifications are identified. CAD was utilized. IMPRESSION:No mammographic evidence of malignancy. BI-RADS CATEGORY:Category: 2 - Benign Finding.Recommendation: Normal Interval Follow-up, Over Age 40.Recall Interval: 12 Months.Breast Density: Fatty. For any future breast imaging appointments, please call [phone]). Electronically signed by: CAIRAN JIMENEZ 02/16/19 17:42 Normal [facility] Work Phone: MG Breast screening Please click on the link to view the study images Normal [facility] Work Phone: Hematologyon 02-05-2019 Hematocrit (Bld) [Volume fraction] 38.4 % See Below [facility] Work Phone: Comment on above: Reference Range: 36. 0 - 46.0 Hemoglobin (Bld) [Mass/Vol] 12.5 g/dL See Below [facility] Work Phone: Comment on above: Reference Range: 12. 0 - 16.0 MCV (RBC) [Entitic vol] 88 fL 80 - 100 [facility] Work Phone: Platelets (Bld) [#/Vol] 274 {x10E9/L} 150 - 450 [facility] Work Phone: RBC (Bld) [#/Vol] 4.35 {x10E12/L} See Below [facility] [employer] Phone: Comment on above: Reference Range: 4.0 0 - 5.20 WBC (Bld) [#/Vol] 12.2 {x10E9/L} above high threshold 4.4 - 11.3 [facility] Work Phone: Hemoglobin A1Con 02-05-2019 HbA1c (Bld) [Mass fraction] 6.2 % [facility] Work Phone: Comment on above: Diagnosis of Diabete s-Adults Non-Diabetic: < or = 5.6% Increased risk for developing diabetes: 5.7-6.4% Diagnostic of diabetes: > or = 6.5%. Monitoring of Diabetes Age (y) Therapeutic Goal (%) Adults: >18 <7.0 Pediatrics: 13-18 <7.5 7-12 <8.0 0- 6 7.5-8.5 [place] [employer]. Diabetes Care 33(S1), Apr 2009. HbA1c (Bld) [Mass fraction] 131 {MG/DL} [facility] Work Phone: Metabolic Panelon 02-05-2019 ALP [Catalytic activity/Vol] 118 U/L 33 - 136 [facility] Work Phone: Anion gap [Moles/Vol] 16 mmol/L 10 - 20 [facility] Work Phone: [phone] Bilirubin [Mass/Vol] 0.5 mg/dL 0.0 - 1.2 [facility] Work Phone: Calcium [Mass/Vol] 9.2 mg/dL 8.6 - 10.3 [facility] Work Phone: Chloride [Moles/Vol] 98 mmol/L 98 - 107 [facility] Work Phone: CO2 [Moles/Vol] 29 mmol/L 21 - 32 [facility] Work Phone: Creatinine [Mass/Vol] 1.05 mg/dL See Below [facility] Work Phone: Comment on above: Reference Range: 0.5 0 - 1.05 Glucose [Mass/Vol] 120 mg/dL above high threshold 74 - 99 [facility] Work Phone: Potassium [Moles/Vol] 4.2 mmol/L 3.5 - 5.3 [facility] Work Phone: Protein [Mass/Vol] 7.2 g/dL 6.4 - 8.2 [facility] Work Phone: Sodium [Moles/Vol] 139 mmol/L 136 - 145 [facility] Work Phone: Urea nitrogen [Mass/Vol] 19 mg/dL 6 - 23 [facility] Work Phone: Otheron 02-05-2019 Albumin BCP dye [Mass/Vol] 4.1 g/dL 3.4 - 5.0 [facility] Work Phone: ALT With P-5'-P [Catalytic activity/Vol] 12 U/L 7 - 45 [facility] Work Phone: Comment on above: Patients treated wit h Sulfasalazine may generate falsely decreased results for ALT. AST With P-5'-P [Catalytic activity/Vol] 18 U/L 9 - 39 [facility] Work Phone: Erythrocyte distribution width (RBC) [Ratio] 15.7 % above high threshold See Below [facility] Work Phone: Comment on above: Reference Range: 11. 5 - 14.5 MCHC (RBC) [Mass/Vol] 32.5 g/dL See Below [facility] Work Phone: Comment on above: Reference Range: 32. 0 - 36.0 63 {mL/min/1.73m2} >60 [facility] Work Phone: Comment on above: CALCULATIONS OF HANNAH MATED GFR ARE PERFORMED USING THE MDRD STUDY EQUATION FOR THE IDMS-TRACEABLE CREATININE METHODS. CLIN CHEM 2007;53:766-72 52 {mL/min/1.73m2} Abnormal >60 [facility] Work Phone: 4 1 [facility] Work Phone: Comment on above: Age: 73 YearsSex: FC ongestive Heart Failure: NoHypertension: YesStroke/TIA/Thromboembolism: NoVascular Disease: NoDiabetes Mellitus: Yes Moderate-High [facility] Work Phone: Comment on above: Age: 73 YearsSex: FC ongestive Heart Failure: NoHypertension: YesStroke/TIA/Thromboembolism: NoVascular Disease: NoDiabetes Mellitus: Yes 2.2 % [facility] Work Phone: Comment on above: Age: 73 YearsSex: FC ongestive Heart Failure: NoHypertension: YesStroke/TIA/Thromboembolism: NoVascular Disease: NoDiabetes Mellitus: Yes 4.8 % [facility] Work Phone: Comment on above: Age: 73 YearsSex: FC ongestive Heart Failure: NoHypertension: YesStroke/TIA/Thromboembolism: NoVascular Disease: NoDiabetes Mellitus: Yes Thyroidon 02-05-2019 TSH Qn 3.72 {mIU/L} See Below [facility] Work Phone: Comment on above: Reference Range: 0.4 4 - 3.98 TSH testing is performed using different testing methodology at [facility] than at other [facility]. Direct result comparisons should only be made within the same method. CMPon 11-05-2018 Albumin [Mass/Vol] 4.1 g/dL Normal 3.4-5.0 [facility] Comment on above: Performed By: #### 2 [id number] #### [facility] [employer] [address] [place] [address] Albumin/Globulin [Mass ratio] 1.1 {ratio} Normal 1.1-1.9 [facility] Comment on above: Performed By: #### 2 [id number] #### [facility] [employer] [address] [place] [address] Alk Phos 113 Int._Unit/L Normal 33-136 [facility] Comment on above: Performed By: #### 2 [id number] #### [facility] [employer] [address] [place] [address] 73700 ALT [Catalytic activity/Vol] 11 Int._Unit/L Normal 7-45 [facility] Comment on above: Performed By: #### 2 [id number] #### [facility] [employer] [address] [place] [address] Anion gap [Moles/Vol] 17 mmol/L Normal 10-20 [facility] Comment on above: Performed By: #### 2 [id number] #### [facility] [employer] [address] [place], [place] [id number] AST [Catalytic activity/Vol] 15 Int._Unit/L Normal 9-39 [facility] Comment on above: Performed By: #### 2 [id number] #### [facility] [employer] [address] [place] [address] Bili Total 0.55 mg/dL Normal 0.00-1.20 [facility] Comment on above: Performed By: #### 2 [id number] #### [facility] [employer] [address] [place] [address] Calcium [Mass/Vol] 9.7 mg/dL Normal 8.6-10.3 [facility] Comment on above: Performed By: #### 2 [id number] #### [facility] [employer] [address] [place] [address]78 Chloride [Moles/Vol] 97 mmol/L Low 98-107 [facility] Comment on above: Performed By: #### 2 [id number] #### [facility] [employer] [address] [place] [address] CO2 [Moles/Vol] 28.0 mmol/L Normal 21.0-32.0 [facility] Comment on above: Performed By: #### 2 [id number] #### [facility] [employer] [address] [place] [address]85 Creatinine [Mass/Vol] 1.3 mg/dL High 0.5-1.1 [facility] Comment on above: Performed By: #### 2 [id number] #### [facility] [employer] [address] [place] [address] 97835 Globulin (S) [Mass/Vol] 4.0 g/dL Normal 2.0-4.0 [facility] Comment on above: Performed By: #### 2 [id number] #### [facility] [employer] [address] [place] [address] 69324 Glucose [Mass/Vol] 133 mg/dL High 70-99 [facility] Comment on above: Performed By: #### 2 [id number] #### [facility] [employer] [address] [place] [address] 65848 Potassium [Moles/Vol] 3.9 mmol/L Normal 3.5-5.3 [facility] Comment on above: Performed By: #### 2 [id number] #### [facility] [employer] [address] [place] [address] 93237 Protein [Mass/Vol] 7.7 g/dL Normal 6.4-8.2 [facility] Comment on above: Performed By: #### 2 [id number] #### [facility] [employer] [address] [place] [address] Sodium [Moles/Vol] 138 mmol/L Normal 136-145 [facility] Comment on above: Performed By: #### 2 [id number] #### [facility] [employer] [address] [place] [address] Urea nitrogen [Mass/Vol] 18 mg/dL Normal 6-23 [facility] Comment on above: Performed By: #### 2 [id number] #### [facility] [employer] [address] [place] [address] 46303 Urea nitrogen/Creatinine [Mass ratio] 13.8 ratio Normal 5.4-30.0 [facility] Comment on above: Performed By: #### 2 [id number] #### [facility] [employer] [address] [place] [address]37 [id number] 11-05-2018 HbA1c (Bld) [Mass fraction] 6.4 % High 4.0-6.3 [facility] Comment on above: Performed By: #### 3 [id number] #### ARIANNA Chemistry Manual Subsection [address] [place] [address] 28534 Lipid Profileon 11-05-2018 Cholesterol [Mass/Vol] 222 mg/dL High 0-199 [facility] Comment on above: Result Comment: TOTA L CHOLEESTEROL: <200 NORMAL 200 - 239 BORDERLINE HIGH >240 HIGH Performed By: #### 3 [id number] #### ARI[facility]NA [employer] [address] [place] [address] Cholesterol in HDL [Mass/Vol] 46 mg/dL Normal 40-60 [facility] Comment on above: Performed By: #### 3 [id number] #### ARI[facility] [employer] [address] [place] [address] Cholesterol in LDL [Mass/Vol] 135 mg/dL High 0-130 [facility] Comment on above: Result Comment: <100 OPTIMAL 100-129 NEAR / ABOVE OPTIMAL 130-159 BORDERLINE HIGH 160-189 HIGH >190 VERY HIGH CALC LDL NOT VALID WHEN TRIGLYCERIDE IS >400 MG/DL Performed By: #### 3 [id number] #### [facility] [employer] [address] [place] [address] 48167 Cholesterol in VLDL [Mass/Vol] 41 mg/dL High 0-40 [facility] Comment on above: Performed By: #### 3 [id number] #### ARI[facility] [employer] [address] [place] [address] Triglyceride [Mass/Vol] 205 mg/dL High 0-149 [facility] Comment on above: Result Comment: AGE DESIRABLE BORDERLINE HIGH 91 D - 9 Y 0 - 74 75 - 99 > 100 10 - 19 Y 0 - 89 90 - 129 > 130 20 -24 Y 0 - 114 115 - 149 > 150 > 25 0 - 149 150 - 199 200 - 499 Performed By: #### 3 [id number] #### [facility] [employer] [address] [place] [address] U Drug Screenon 11-05-2018 U Amph Scr Negative Normal Negative [facility] Comment on above: Performed By: #### 2 [id number] #### ARIANNA [employer] [address] [place] [address] U Taar Scr Negative Normal Negative [facility] Comment on above: Performed By: #### 2 [id number] #### ARI[facility]NA [employer] [address] [place] [address] 21171 U Benzodia Scr Negative Normal Negative [facility] Comment on above: Performed By: #### 2 [id number] #### ARIANNA [employer] [address] [place] [address] U Cannab Scr Negative Normal Negative [facility] Comment on above: Performed By: #### 2 [id number] #### ARI[facility]NA [employer] [address] [place] [address] U Cocaine Scr Negative Normal Negative [facility] Comment on above: Performed By: #### 2 [id number] #### ARI[facility]NA [employer] [address] [place] [address] U Opiate Scr Negative Normal Negative [facility] Comment on above: Performed By: #### 2 [id number] #### ARI[facility]NA [employer] [address] [place] [address] U PCP Scr Negative Normal Negative [facility] Comment on above: Performed By: #### 2 [id number] #### ARI[facility]NA [employer] [address] [place] [address] Vitamin D 25 Hydroxyon 11-05 Vitamin D 25 Hydroxy 26.0 ng/mL Low 30.0-100.0 [facility] Comment on above: Performed By: #### 5 [id number] #### ARI[facility]NA [employer] [address] [place] [address] eGFRon 11-05-2018 GFR/1.73 sq M predicted among non-blacks MDRD (S/P/Bld) [Vol rate/Area] 50 mL/min/1.73 m2 [facility] Comment on above: Order Comment: Order added by Discern Expert. Performed By: #### 1 [id number] #### ARIANNA [employer] [facility] [place] [address] GFR/1.73 sq M predicted among non-blacks MDRD (S/P/Bld) [Vol rate/Area] 42 mL/min/1.73 m2 [facility] Comment on above: Order Comment: Order added by Discern Expert. Performed By: #### 1 [id number] #### ARIANNA [employer] [facility] [place] [address] Vital Signs Date Time Vital Sign Value Performing Clinician Facility 11-18-2024 14:00-0400 Body temperature 98 [degF] Dr. April Mullen MD [facility] 11-18-2024 14:00-0400 Diastolic blood pressure 47 mm[Hg] Dr. April Mullen MD [facility] 11-18-2024 14:00-0400 Heart rate 67 /min Dr. April Mullen MD [facility] 11-18-2024 14:00-0400 Respiratory rate 16 /min Dr. April Mullen MD [facility] 11-18-2024 14:00-0400 SaO2% (BldA) [Mass fraction] 97 % Dr. April Mullen MD [facility] 11-18-2024 14:00-0400 Systolic blood pressure 105 mm[Hg] Dr. April Mullen MD [facility] 11-18-2024 06:00-0400 Body mass index (BMI) [Ratio] 40.1 kg/m2 Dr. April Mullen MD [facility] 11-18-2024 06:00-0400 Body weight 112.[address] April Mullen MD [facility] 11-17-2024 14:28-0400 Inhaled oxygen flow rate 2 L/min Dr. April Mullen MD [facility] 11-17-2024 13:50-0400 Inhaled oxygen concentration 4 % Dr. April Mullen MD [facility] 11-17-2024 04:03-0400 Body height 167.[address] April Mullen MD [facility] 11-09-2024 08:00-0400 Diastolic blood pressure 115 mm[Hg] Dr. April Mullen MD [facility] 11-09-2024 08:00-0400 Heart rate 97 /min Dr. April Mullen MD [facility] 11-09-2024 08:00-0400 Respiratory rate 20 /min Dr. April Mullen MD [facility] 11-09-2024 08:00-0400 SaO2% (BldA) [Mass fraction] 93 % Dr. April Mullen MD [facility] 11-09-2024 08:00-0400 Systolic blood pressure 128 mm[Hg] Dr. April Mullen MD [facility] 11-09-2024 06:45-0400 Body temperature 98.6 [degF] Dr. April Mullen MD [facility] 11-09-2024 04:23-0400 Body height 167.[address] April Mullen MD [facility] 11-09-2024 04:23-0400 Body mass index (BMI) [Ratio] 39 kg/m2 Dr. April Mullen MD [facility] 11-09-2024 04:23-0400 Body weight 109.[address] April Mullen MD [facility] 10-28-2024 12:45-0400 Body temperature 98 [degF] Dr. April Mullen MD [facility] 10-28-2024 12:45-0400 Diastolic blood pressure 81 mm[Hg] Dr. April Mullen MD [facility] 10-28-2024 12:45-0400 Heart rate 87 /min Dr. April Mullen MD [facility] 10-28-2024 12:45-0400 Respiratory rate 18 /min Dr. April Mullen MD [facility] 10-28-2024 12:45-0400 SaO2% (BldA) [Mass fraction] 98 % Dr. April Mullen MD [facility] [facility] 10-28-2024 12:45-0400 Systolic blood pressure 98 mm[Hg] Dr. April Mullen MD [facility] 10-28-2024 10:53-0400 Body height 167.[address] April Mullen MD [facility] 10-28-2024 10:53-0400 Body mass index (BMI) [Ratio] 33.5 kg/m2 Dr. April Mullen MD [facility] 10-28-2024 10:53-0400 Body weight 94.[address] April Mullen MD [facility] 10-09-2024 14:51-0400 Body height 167.[address] April Mullen MD [facility] 10-09-2024 14:51-0400 Diastolic blood pressure 69 mm[Hg] Dr. April Mullen MD [facility] 10-09-2024 14:51-0400 Heart rate 101 /min Dr. April Mullen MD [facility] 10-09-2024 14:51-0400 Respiratory rate 18 /min Dr. April Mullen MD [facility] 10-09-2024 14:51-0400 Systolic blood pressure 89 mm[Hg] Dr. April Mullen MD [facility] 07-23-2024 08:30-0400 Body mass index (BMI) [Ratio] 32.4 kg/m2 Dr. April Mullen MD [facility] 07-23-2024 08:30-0400 Body weight 91.[address] April Mullen MD [facility] 07-23-2024 08:30-0400 Diastolic blood pressure 79 mm[Hg] Dr. April Mullen MD [facility] 07-23-2024 08:30-0400 Heart rate 76 /min Dr. April Mullen MD [facility] 07-23-2024 08:30-0400 Respiratory rate 18 /min Dr. April Mullen MD [facility] 07-23-2024 08:30-0400 Systolic blood pressure 104 mm[Hg] Dr. April Mullen MD [facility] 07-01-2024 14:10-0400 Body temperature 97.6 [degF] [facility] 07-01-2024 14:10-0400 Diastolic blood pressure 82 mm[Hg] Dominic [facility] 07-01-2024 14:10-0400 Heart rate 81 /min Dominic [facility] 07-01-2024 14:10-0400 Respiratory rate 16 /min Dominic [facility] 07-01-2024 14:10-0400 SaO2% (BldA) [Mass fraction] 99 % [facility] 07-01-2024 14:10-0400 Systolic blood pressure 108 mm[Hg] Dominic [facility] 07-01-2024 11:58-0400 Body height 167.64 cm Dominic [facility] 07-01-2024 11:58-0400 Body mass index (BMI) [Ratio] 32.4 kg/m2 Dominic [facility] 07-01-2024 11:58-0400 Body weight 91.17 kg Dominic [facility] 04-28-2024 10:59-0500 Body height 167.64 cm Dominic [facility] 04-28-2024 10:59-0500 Body mass index (BMI) [Ratio] 32.4 kg/m2 Doimnic [facility] 04-28-2024 10:59-0500 Body weight 91.17 kg Dominic Lim [facility] 04-28-2024 10:59-0500 Diastolic blood pressure 70 mm[Hg] Dominic [facility] 04-28-2024 10:59-0500 Heart rate 81 /min Dominic [facility] 04-28-2024 10:59-0500 Respiratory rate 18 /min Dominic [facility] 04-28-2024 10:59-0500 SaO2% (BldA) [Mass fraction] 98 % Dominic [facility] 04-28-2024 10:59-0500 Systolic blood pressure 98 mm[Hg] Dominic [facility] 03-28-2024 17:47-0500 Body temperature 98.2 [degF] Dominic [facility] 03-28-2024 17:47-0500 Diastolic blood pressure 61 mm[Hg] Dominic Lim [facility] 03-28-2024 17:47-0500 Heart rate 90 /min Dominic [facility] 03-28-2024 17:47-0500 Respiratory rate 18 /min Dominic Lim [facility] 03-28-2024 17:47-0500 SaO2% (BldA) [Mass fraction] 97 % Dominic Lim [facility] 03-28-2024 17:47-0500 Systolic blood pressure 99 mm[Hg] Dominic [facility] 03-28-2024 11:54-0500 Body mass index (BMI) [Ratio] 34.7 kg/m2 Dominic [facility] 03-28-2024 11:54-0500 Body weight 97.6 kg Dominic [facility] 02-28-2024 09:59-0500 Body height 167.6 cm Braulio Oneil MD PhD Work Phone: [place] 02-28-2024 09:59-0500 Body mass index (BMI) [Ratio] 36.32 kg/m2 Braulio Oneil MD PhD Work Phone: [place] 02-28-2024 09:59-0500 Body temperature 96.6 [degF] Braulio Oneil MD PhD Work Phone: [place] 02-28-2024 09:59-0500 Body weight 102.06 kg Braulio Oneil MD PhD Work Phone: [place] 02-28-2024 09:59-0500 Diastolic blood pressure 76 mm[Hg] Braulio Oneil MD PhD Work Phone: [place] 02-28-2024 09:59-0500 Heart rate 88 /min Braulio Oneil MD PhD Work Phone: [place] 02-28-2024 09:59-0500 Systolic blood pressure 108 mm[Hg] Barulio Oneil MD PhD Work Phone: [place] 12-04-2023 10:41-0400 Diastolic blood pressure 72 mm[Hg] Eliza Milks PA-C Work Phone: [place] 12-04-2023 10:41-0400 Heart rate 83 /min Eliza Milks PA-C Work Phone: [place] 12-04-2023 10:41-0400 Systolic blood pressure 106 mm[Hg] Eliza Milks PA-C Work Phone: [place] 11-20-2023 08:04-0400 Body temperature 98.1 [degF] Madhuri Chauhan MD Work Phone: [place] 11-20-2023 08:04-0400 Diastolic blood pressure 89 mm[Hg] Madhuri Chauhan MD Work Phone: [place] 11-20-2023 08:04-0400 Heart rate 99 /min Madhuri Chauhan MD Work Phone: [place] 11-20-2023 08:04-0400 Respiratory rate 18 /min Madhuri Chauhan MD Work Phone: [place] 11-20-2023 08:04-0400 SaO2% (BldA) [Mass fraction] 96 % Madhuri Chauhan MD Work Phone: [place] 11-20-2023 08:04-0400 Systolic blood pressure 145 mm[Hg] Madhuri Chauhan MD Work Phone: [phone] [place] [address] 11-14-2023 18:51-0400 Body temperature 37.0 Madhuri Chauhan MD Work Phone: [place] 11-14-2023 18:51-0400 SaO2% (BldA) [Mass fraction] 99 % Madhuri Chauhan MD Work Phone: [place] 11-14-2023 18:34-0400 Body temperature 37.0 degrees [facility] Comment on above: Performed By: #### [id number] #### OMERO KNIGHT ([id number]) [facility] ([facility]) [address] [place] [address] 11-14-2023 18:34-0400 SaO2% (BldA) [Mass fraction] 99 % [facility] Comment on above: Performed By: #### [id number] #### OMERO KNIGHT ([id number]) [facility] ([facility]) [address] [place] [address] 11-14-2023 16:54-0400 Body temperature 37.0 Madhuri Chauhan MD Work Phone: [place] 11-14-2023 16:54-0400 SaO2% (BldA) [Mass fraction] 99 % Madhuri Chauhan MD Work Phone: [place] 11-14-2023 16:36-0400 Body temperature 37.0 degrees [facility] Comment on above: Performed By: #### [id number] #### OMERO KNIGHT ([id number]) [facility] ([facility]) [address] [place] [address] 11-14-2023 16:36-0400 SaO2% (BldA) [Mass fraction] 99 % [facility] Comment on above: Performed By: #### [id number] #### OMERO KNIGHT ([id number]) [facility] ([facility]) [address] [place] [address] 11-09-2023 02:30-0400 Body height 170.2 cm Madhuri Chauhan MD Work Phone: [place] 11-09-2023 02:30-0400 Body mass index (BMI) [Ratio] 32.66 kg/m2 Madhuri Chauhan MD Work Phone: [place] 11-09-2023 02:30-0400 Body weight 94.6 kg Madhuri Chauhan MD Work Phone: [place] 10-15-2023 15:10-0400 Body temperature 97.5 [degF] Flavio Aquino DO Work Phone: [place] 10-15-2023 15:10-0400 Diastolic blood pressure 83 mm[Hg] Flavio Aquino DO Work Phone: [place] 10-15-2023 15:10-0400 Heart rate 78 /min Flavio Aquino DO Work Phone: [place] 10-15-2023 15:10-0400 Respiratory rate 16 /min Flavio Aquino DO Work Phone: [place] 10-15-2023 15:10-0400 SaO2% (BldA) [Mass fraction] 92 % Flavio Aquino DO Work Phone: [place] 10-15-2023 15:10-0400 Systolic blood pressure 121 mm[Hg] Flavio Aquino DO Work Phone: [place] 10-10-2023 01:24-0400 Body height 167.6 cm Flavio Aquino DO Work Phone: [place] 10-10-2023 01:24-0400 Body mass index (BMI) [Ratio] 40.35 kg/m2 Flavio Aquino DO Work Phone: [place] 10-10-2023 01:24-0400 Body weight 113.4 kg Flavio Aquino DO Work Phone: [place] 06-10-2023 19:14-0500 Diastolic blood pressure 63 mm[Hg] Flavio Aquino DO Work Phone: [place] 06-10-2023 19:14-0500 Heart rate 83 /min Flavio Aquino DO Work Phone: [place] 06-10-2023 19:14-0500 Respiratory rate 16 /min Flavio Aquino DO Work Phone: [place] 06-10-2023 19:14-0500 SaO2% (BldA) [Mass fraction] 98 % Flavio Aquino DO Work Phone: [place] 06-10-2023 19:14-0500 Systolic blood pressure 118 mm[Hg] Flavio Aquino DO Work Phone: [place] 06-10-2023 17:41-0500 Body height 167.6 cm Flavio Aquino DO Work Phone: [place] 06-10-2023 17:41-0500 Body mass index (BMI) [Ratio] 40.03 kg/m2 Flavio Aquino DO Work Phone: [place] 06-10-2023 17:41-0500 Body temperature 97.81 [degF] Flavio Aquino DO Work Phone: [place] 06-10-2023 17:41-0500 Body weight 112.49 kg Flavio Aquino DO Work Phone: [place] 10-13-2022 14:22-0400 Body height 167.6 cm Huan Gilman MD Work Phone: [place] 10-13-2022 14:22-0400 Body mass index (BMI) [Ratio] 40.05 kg/m2 Huan Gilman MD Work Phone: [place] 10-13-2022 14:22-0400 Body weight 112.49 kg Huan Gilman MD Work Phone: [place] 06-05-2022 11:04-0500 Body mass index (BMI) [Ratio] Medical Reason Not Done Huan Gilman Work Phone: [facility] Work Phone: 06-05-2022 11:04-0500 Diastolic blood pressure 78 mm[Hg] Huan Gilman Work Phone: [facility] Work Phone: 06-05-2022 11:04-0500 Heart rate 90 /min Huan Gilman Work Phone: [facility] Work Phone: 06-05-2022 11:04-0500 SaO2% (BldA) [Mass fraction] 90 % Huan Manriqueer Work Phone: [facility] Work Phone: 06-05-2022 11:04-0500 Systolic blood pressure 120 mm[Hg] Huan Manriqueer Work Phone: [facility] Work Phone: 05-24-2022 11:32-0500 Diastolic blood pressure 74 mm[Hg] Huan Manriqueer Work Phone: [facility] Work Phone: 05-24-2022 11:32-0500 Heart rate 104 /min Huan O Gilman Work Phone: GF-Aolvudubzm[facility] Work Phone: 05-24-2022 11:32-0500 SaO2% (BldA) [Mass fraction] 97 % Huan O Gilman Work Phone: HY-Ofcxc[address]exc[address] Work Phone: 05-24-2022 11:32-0500 Systolic blood pressure 118 mm[Hg] Huan O Gilman Work Phone: [address] Work Phone: 03-07-2022 14:08-0500 Body mass index (BMI) [Ratio] Patient Reason Not Done Huan O Gilman Work Phone: [facility] Work Phone: 03-07-2022 14:08-0500 Diastolic blood pressure 74 mm[Hg] Huan O Gilman Work Phone: [facility] Work Phone: 03-07-2022 14:08-0500 Heart rate 76 /min Huan O Gilman Work Phone: [facility] Work Phone: 03-07-2022 14:08-0500 Respiratory rate 16 /min Huan O Gilman Work Phone: [facility] Work Phone: 03-07-2022 14:08-0500 Systolic blood pressure 118 mm[Hg] Huan O Gilman Work Phone: [facility] Work Phone: 02-04-2021 16:31-0400 Diastolic blood pressure 78 mm[Hg] Huan O Gilman Work Phone: [facility] Work Phone: 02-04-2021 16:31-0400 Heart rate 72 /min Huan O Gilman Work Phone: [facility] Work Phone: 02-04-2021 16:31-0400 Systolic blood pressure 124 mm[Hg] Huan O Gilman Work Phone: [facility] Work Phone: 11-13-2019 15:22-0400 BMI (Body Mass Index) 51.09 kg/m2 Huan Gilman [facility] Work Phone: 11-13-2019 15:22-0400 Body Temperature 96.9 [degF] Huan Gilman KM-Fdqsygvfwm-Q [facility] Work Phone: 11-13-2019 15:22-0400 Body weight 139.26 kg Huan Gilman GJ-Xfawkpgjke-IF C [facility] DO Work Phone: 11-13-2019 15:22-0400 BP Diastolic 69 mm[Hg] Huan Gilman PF-Nxnzgaedeh-IN [facility] Work Phone: Comment on above: Location: RUE; Position: Sitting 11-13-2019 15:22-0400 BP Systolic 116 mm[Hg] uHan Gilman VJ-Sucipdilvb-JF [facility] Work Phone: Comment on above: Location: RUE; Position: Sitting 11-13-2019 15:22-0400 BSA (Body Surface Area) 2.37 m2 Huan Gilman XH-Wdxvkchkvl-UHT [place] [facility] [address] DO Work Phone: 11-13-2019 15:22-0400 Height 165.1 cm Huan Gilman YI-Zbuksyqckr-KC [facility] DO Work Phone: 11-13-2019 15:22-0400 Pulse (Heart Rate) 79 /min Huan Gilman MP[facility] Work Phone: 10-30-2019 12:49-0400 BMI (Body Mass Index) 51.09 kg/m2 [facility] Work Phone: 10-30-2019 12:49-0400 Body Temperature 98.2 [degF] Waqar [facility]strada [facility] Work Phone: Comment on above: Method: Oral 10-30-2019 12:49-0400 Body weight 139.26 kg Waqar Estrada [facility] [place] Work Phone: 10-30-2019 12:49-0400 BP Diastolic 80 mm[Hg] Waqar Estrada [facility] [place] Work Phone: Comment on above: Location: LUE; 10-30-2019 12:49-0400 BP Systolic 134 mm[Hg] Waqar Estrada [facility] [place] Work Phone: Comment on above: Location: LUE; 10-30-2019 12:49-0400 BSA (Body Surface Area) 2.37 m2 Waqar Estrada [facility] [place] Work Phone: 10-30-2019 12:49-0400 Height 165.1 cm Waqar Estrada [facility] [place] Work Phone: 10-30-2019 12:49-0400 Pulse (Heart Rate) 72 /min Waqar Estrada [facility] [place] Work Phone: 02-19-2019 12:06-0500 BMI (Body Mass Index) 50.66 kg/m2 [facility] Work Phone: 02-19-2019 12:06-0500 Body weight 138.08 kg [facility] Work Phone: 02-19-2019 12:06-0500 BP Diastolic 86 mm[Hg] [facility] Work Phone: Comment on above: Location: LUE; 02-19-2019 12:06-0500 BP Systolic 128 mm[Hg] [facility] Work Phone: Comment on above: Location: LUE; 02-19-2019 12:06-0500 BSA (Body Surface Area) 2.36 m2 [facility] [employer] Work Phone: 02-19-2019 12:06-0500 Height 165.1 cm [facility] Work Phone: 02-19-2019 12:06-0500 Pulse (Heart Rate) 84 /min [facility] Work Phone: 02-19-2019 12:06-0500 Pulse Oximetry 96 % [facility] Work Phone: 02-05-2019 12:12-0400 BMI (Body Mass Index) 51.59 kg/m2 Huan Gilman [facility] Work Phone: 02-05-2019 12:12-0400 Body weight 140.62 kg Huan Gilman [facility] Work Phone: 02-05-2019 12:12-0400 BP Diastolic 78 mm[Hg] Huan Manriqueer [facility] Work Phone: Comment on above: Location: LUE; 02-05-2019 12:12-0400 BP Systolic 128 mm[Hg] Huan Gilman [facility] Work Phone: Comment on above: Location: E; 02-05-2019 12:12-0400 BSA (Body Surface Area) 2.38 m2 Huan Manriqueer MP-[facility] Work Phone: 02-05-2019 12:12-0400 Height 165.1 cm Huan Gilman [facility] Work Phone: 02-05-2019 12:12-0400 Pulse (Heart Rate) 72 /min Huan Gilman [facility] Work Phone: Encounters Encounter Date Encounter Type Care Provider Facility Start: 11-21-2024 ambulatory April tanner Facility:[facility] Start: 11-18-2024 Non-patient / Non-visit Dr. Cintia Ricks MD -[facility] Work Phone: Start: 11-17-2024 Non-patient / Non-visit Jacinto Masterson nd, DO -[facility] Start: 11-17-2024 ambulatory [facility] Facility: [facility] Start: 11-16-2024 Non-patient / Non-visit Dr. Junior Monge DO [facility] Work Phone: Start: 11-15-2024 Non-patient / Non-visit Dr. Junior Monge DO [facility] Work Phone: Start: 11-14-2024 Non-patient / Non-visit Dr. Junior Monge DO [facility] Work Phone: Start: 11-13-2024 Non-patient / Non-visit Dr. Junior Monge DO [facility] Work Phone: Start: 11-12-2024 Non-patient / Non-visit Dr. Junior Monge DO [facility] Work Phone: Start: 11-11-2024 Non-patient / Non-visit Dr. Junior Monge DO [facility] Work Phone: Start: 11-10-2024 Non-patient / Non-visit Dr. Junior Monge DO [facility] Work Phone: Start: 11-09-2024 ambulatory [facility] Facility: [facility] Start: 11-09-2024 End: 11-18-2024 Evaluation and management of inpatient Dr. Emily Cummings MD -Progressive Care Unit Work Phone: Start: 10-28-2024 ambulatory April Mullen Facility:[facility] Start: 10-28-2024 Non-patient / Non-visit Jacinto Masterson nd DO -[facility] Start: 10-28-2024 End: 10-28-2024 Admission to same day surgery center Jacinto Munoz DO -Endoscopy Work Phone: Start: 10-28-2024 End: 10-28-[address] April Mullen MD -Endoscopy Start: 10-09-2024 End: 10-09-2024 Patient encounter procedure Yennifer CASH -[facility] Work Phone: Start: 10-09-2024 End: 10-09-[address] April Mullen MD -[facility] Start: 09-19-2024 End: 09-19-2024 Telephone encounter Laurent Jurado APRN.HARNESS INSPECTOR Work Phone: [facility] Start: 09-17-2024 End: 09-17-2024 Telephone encounter Laurent Jurado APRN.HARNESS INSPECTOR Work Phone: [facility] Comment on above: Appointment (Appoint ment) Start: 09-16-2024 ambulatory Delgado Velazco ity:[facility] Start: 09-16-[address] Delgado Amaro MD -[facility] Start: 08-19-2024 ambulatory [facility] Facility:[facility] Start: 08-19-[address] Delgado Amaro MD -[facility] Start: 08-13-2024 ambulatory Henri Pedraza Facility:[facility] Start: 08-13-2024 Non-patient / Non-visit Dr. Henri duron MD -[facility] Start: 08-13-2024 End: 08-13-[address] April Mullen MD [facility] Work Phone: Start: 08-13-2024 End: 08-13-[address] Henri Pedraza MD -Cardiovascular Services Work Phone: Start: 08-13-2024 End: 08-13-2024 ambulatory [facility] Facility:[facility] Start: 07-31-2024 End: 07-31-2024 Patient encounter procedure Mandy MISTRY -[facility] Work Phone: Start: 07-31-2024 End: 07-31-2024 ambulatory April Mullen Facility:[facility] Start: 07-23-2024 End: 07-23-[address] Henri Pedraza MD -[facility] Work Phone: Start: 07-23-2024 End: 07-23-2024 ambulatory April Mullen Facility:[facility] Start: 07-22-2024 End: 07-22-[address] April Mullen MD [facility] Work Phone: Start: 07-22-2024 End: 07-22-[address] Delgado Amaro MD -[facility] Start: 07-22-2024 End: 07-22-2024 ambulatory Delgado LUCERO Facility:[facility] Start: 07-01-2024 ambulatory April Mullen Facility:[facility] Start: 07-01-2024 Non-patient / Non-visit Jacinto Masterson nd DO -[facility] Start: 07-01-2024 End: 07-01-2024 Admission to same day surgery center Jacinto Munoz DO -Endoscopy Work Phone: Start: 07-01-2024 End: 07-01-2024 ambulatory Dominic Lim [facility] Work Phone: Start: 06-24-2024 End: 06-24-2024 ambulatory Dominic [facility] Work Phone: Start: 06-24-2024 End: 06-24-[address] Delgado Amaro MD -[facility] Start: 06-24-[address] Delgado Amaro MD -[facility] Start: 06-24-2024 End: 06-24-2024 ambulatory Delgado LUCERO Facility:[facility] Start: 06-04-2024 End: 06-04-2024 ambulatory Dominic Lim [facility] Work Phone: Start: 06-04-2024 End: 06-04-[address] April Mullen MD -[facility] Start: 06-04-[address] April Mullen MD -[facility] Start: 06-03-2024 End: 06-04-2024 ambulatory Dominic Lim [facility] Work Phone: Start: 06-03-2024 End: 06-03-[address] Delgado Amaro MD [facility] Start: 06-03-[address] Delgado Amaro MD [facility] Start: 06-02-2024 End: 06-03-2024 ambulatory Delgado LUCERO Facility:[facility] Start: 06-02-[address] April Mullen MD [facility] Start: 05-27-[address] [facility] Start: 05-27-[address] April Mullen MD [facility] Start: 05-12-2024 End: 05-12-2024 ambulatory Dominic Lim [facility] Work Phone: Start: 05-12-2024 End: 05-12-[address] Delgado Amaro MD [facility] Start: 05-12-2024 End: 05-12-2024 ambulatory Delgado LUCERO Facility:[facility] Start: 04-28-2024 End: 04-28-2024 Patient encounter procedure Chrissie CASH -[facility] Work Phone: Start: 04-28-2024 End: 04-28-2024 ambulatory April Gudla Facility:[facility] Start: 04-14-[address] [facility] Start: 04-14-[address] April Mullen MD [facility] Start: 04-07-2024 End: 04-07-[address] April Mullen MD [facility] Start: 04-07-2024 End: 04-07-[address] [facility] Start: 04-03-2024 End: 04-03-[address] April Mullen MD [facility] Start: 04-03-2024 End: 04-03-2024 [facility] Start: 03-28-2024 End: 03-28-2024 Emergency department patient visit Dr. Anthony Greer DO -Emergency Department Work Phone: Start: 03-28-2024 End: 03-28-2024 Departed Referred Dominic Carina [facility] Start: 03-28-2024 End: 03-28-2024 ambulatory Dominic LUCERO Facility:[facility] Start: 02-28-2024 End: 02-28-2024 Postop follow up visit related to original px Braulio Oneil MD PhD Work Phone: [facility] Comment on above: S/P laminectomy (Elizabet santosh Dx) Start: 02-28-2024 End: 02-28-2024 ambulatory BRAULIO ONEIL [facility] Start: 02-27-2024 End: 02-27-2024 Departed Referred Dominic Lim [facility] Start: 02-27-2024 End: 02-27-2024 ambulatory Dominic LUCERO Facility:[facility] Start: 01-29-2024 ambulatory Dominic Lim OLS Facili ty:[facility] Start: 01-28-2024 ambulatory Dominic Lim Facility:[facility] Start: 01-21-2024 ambulatory Dominic Lim Facility:[facility] Start: 01-16-2024 ambulatory April Lowa OLS Facili ty:[facility] Start: 01-15-2024 End: 01-15-2024 Office outpatient visit 25 minutes Megan Osorio DO Work Phone: [facility] Comment on above: Vertebral osteomyeli tis (Multi) (Primary Dx) Start: 01-15-2024 End: 01-15-2024 ambulatory MEGAN Jamison [facility] Start: 01-14-2024 ambulatory Dominic Lim Facility:[facility] Start: 01-09-2024 ambulatory April Gudla OLS Facili ty:[facility] Start: 01-01-2024 ambulatory Natalie Espinal Facility:[facility] Start: 12-31-2023 End: 01-08-2024 Evaluation and management of inpatient Waqar Berman Facility:[facility] Start: 12-31-2023 ambulatory Waqar Berman Facili ty:[facility] Start: 12-28-2023 ambulatory Dominic Lim Facility:[facility] Start: 12-26-2023 End: 12-26-2023 Office outpatient visit 25 minutes Megan Osorio DO Work Phone: [facility] Comment on above: Vertebral osteomyeli tis (Multi) (Primary Dx); Discitis, unspecified, thoracic region Start: 12-25-2023 ambulatory Dominic Lim Facility:[facility] Start: 12-24-2023 ambulatory April Mullen OLS Facili ty:[facility] Start: 12-19-2023 ambulatory Dominic Lim Facility:[facility] Start: 12-18-2023 ambulatory Dominic Lim Facility:[facility] Start: 12-17-2023 End: 12-18-2023 Emergency department patient visit Dominic Lim Facility:[facility] Start: 12-12-2023 ambulatory Dominic Lim OLS Facili ty:[facility] Start: 12-11-2023 ambulatory Dominic Lim OLS Facili ty:[facility] Start: 12-04-2023 End: 12-04-2023 ambulatory [facility] Start: 12-04-2023 End: 12-04-2023 Postop follow up visit related to original px Eliza Glass Rustselina PA-C Work Phone: [facility] Comment on above: Spondylosis with mye lopathy, thoracic region (Primary Dx) Start: 12-03-2023 ambulatory Dominic Lim OLS Facili ty:[facility] Start: 11-30-2023 ambulatory April Lowa OLS Facili ty:[facility] Start: 11-28-2023 ambulatory Dominic Lim OLS Facili ty:[facility] Start: 11-27-2023 ambulatory Dominic Lim OLS Facili ty:[facility] Start: 11-26-2023 ambulatory Dominic Lim OLS Facili ty:[facility] Start: 11-21-2023 ambulatory Dominic Lim OLS Facili ty:[facility] Start: 11-09-2023 End: 11-20-2023 Evaluation and management of inpatient [facility] Work Phone: Start: 11-06-2023 End: 11-08-2023 Evaluation and management of inpatient [facility] Start: 10-10-2023 End: 10-15-2023 Evaluation and management of inpatient [facility] Work Phone: Comment on above: Hyponatremia (Primar y Dx); Benign essential hypertension; Iron deficiency anemia secondary to inadequate dietary iron intake; Mixed hyperlipidemia Start: 08-20-2023 End: 08-20-2023 Office outpatient visit 25 minutes Huan Gilman MD Work Phone: [facility] Comment on above: Vitamin D deficiency (Primary Dx); Chronic atrial fibrillation (Multi); Diabetes 1.5, managed as type 2 (Multi); 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) Start: 08-20-2023 End: 08-20-2023 ambulatory [facility] Start: 08-03-2023 End: 08-03-2023 ambulatory [facility] Start: 08-02-2023 End: 08-02-2023 ambulatory MARLEEN SIGALA [facility] Start: 08-02-2023 End: 08-02-2023 Telemedicine consultation with patient [facility] Comment on above: Persistent atrial fi brillation (Multi) Start: 07-20-2023 End: 07-20-2023 ambulatory MARLEEN SIGALA [facility] Start: 07-20-2023 End: 07-20-2023 Office outpatient visit 15 minutes Marleen Sigala SCRAP DROP CRANE OPERATOR-HARNESS INSPECTOR, DNP Work Phone: [facility] Comment on above: Persistent atrial fi brillation (Multi) (Primary Dx) Start: 07-03-2023 End: 07-03-2023 Office outpatient visit 15 minutes Huan Gilman MD Work Phone: [facility] Comment on above: Hematoma of right fo ot (Primary Dx); Anxiety Start: 06-10-2023 End: 06-10-2023 Emergency department patient visit Flavio Atkinson Miles CAMPOS Work Phone: [facility] Comment on above: Contusion of right f oot, initial encounter (Primary Dx); Hematoma of right foot Start: 05-21-2023 End: 05-21-2023 ambulatory [facility] Start: 04-20-2023 End: 04-20-2023 Phys/qhp telephone evaluation 21-30 min Huan Gilman MD Work Phone: [facility] Comment on above: Syndrome of [...] 03-13-2023 Office outpatient visit 25 minutes Huan Gilman MD Work Phone: [facility] Comment on above: Morbid obesity with BMI of 40.0-44.9, adult (CMS/HCC) (Primary Dx); Diabetes 1.5, managed as type 2 (CMS/HCC); Anxiety; Benign essential hypertension; Hyperlipidemia, unspecified hyperlipidemia type; Hypokalemia; Hypomagnesemia; Iron deficiency anemia secondary to inadequate dietary iron intake; Vitamin D deficiency; Age-related incipient cataract of both eyes Start: 03-06-2023 End: 03-06-2023 ambulatory [facility] Start: 12-12-2022 End: 12-12-2022 Office outpatient visit 25 minutes Huan Gilman MD Work Phone: [facility] Comment on above: Anxiety (Primary Dx) ; 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, without long-term current use of insulin (CMS/HCC); Asthma, unspecified asthma severity, unspecified whether complicated, unspecified whether persistent; Chronic atrial fibrillation ([facility]/HCC); Benign essential hypertension; Depression, major, single episode, moderate ([facility]/HCC); Diarrhea, unspecified type; Generalized muscle weakness; Hyperlipidemia, unspecified hyperlipidemia type; Lumbar facet arthropathy; Lymphedema of both lower extremities; Morbid obesity with BMI of 40.0-44.9, adult ([facility]); Neurodermatitis; Personal history of colonic polyps; Primary osteoarthritis of both knees; Vitamin D deficiency Start: 10-13-2022 End: 10-13-2022 Phys/qhp telephone evaluation 21-30 min Huan Gilman MD Work Phone: [facility] Comment on above: Chronic atrial fibri llation ([facility]) (Primary Dx); Asthma, unspecified asthma severity, unspecified whether complicated, unspecified whether persistent; 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, without long-term current use of insulin ([facility]); Depression, major, single episode, moderate ([facility]); Iron deficiency anemia secondary to inadequate dietary iron intake; Morbid obesity with BMI of 40.0-44.9, adult ([facility]); Weakness of both lower extremities; Clostridium difficile enteritis Start: 09-08-2022 End: 09-15-2022 Evaluation and management of inpatient Dr. Huan Gilman Facility:[id number] Start: 06-05-2022 Adv care pln tlkd & alt dcsn maker docd Huan Gilman Work Phone: [facility] Work Phone: Start: 06-02-2022 Chart Update Huan Gilman Work Phone: [facility] Work Phone: Start: 06-01-2022 Chart Update Huan Gilman Work Phone: [facility] Work Phone: Start: 05-24-2022 Office outpatient vi sit 25 minutes Huan Gilman Work Phone: [address] Work Phone: Start: 05-11-2022 AUDIT Huan Pooja Gilman Work Phone: [facility] Work Phone: Start: 04-04-2022 AUDIT Huan O Gilman Work Phone: [facility] Work Phone: Start: 03-28-2022 AUDIT Huan O Gilman Work Phone: [facility] Work Phone: Start: 03-07-2022 EPV, Provider: Huan Gilman, Status: Pen, Time: 2:00 PM Huan O Gilman Work Phone: [facility] Work Phone: Start: 03-07-2022 Office outpatient vi sit 25 minutes Huan O Gilman Work Phone: [facility] Work Phone: Start: 03-06-2022 Chart Update Huan Banerjeeyder Work Phone: [facility] Work Phone: Start: 02-10-2022 AUDIT Huan Banerjeeyder Work Phone: [facility] Work Phone: Start: 12-23-2021 AUDIT Huan Banerjeeyder Work Phone: [facility] Work Phone: Start: 12-02-2021 Office outpatient vi sit 25 minutes Huan O Gilman Work Phone: [facility] Work Phone: Start: 12-02-2021 VIRFUVHOME, Provider : Huan Gilman, Status: Pen, Time: 3:30 PM Huan Pooja Gilman Work Phone: [facility] Work Phone: Start: 12-01-2021 Chart Update Huan O Gilman Work Phone: -[facility] Work Phone: Start: 11-14-2021 AUDIT Huan O Gilman Work Phone: -[facility] Work Phone: Start: 10-21-2021 AUDIT Huan O Gilman Work Phone: [facility] Work Phone: Start: 10-14-2021 AUDIT Huan O Gilman Work Phone: -[facility] Work Phone: Start: 10-11-2021 AUDIT Huan O Gilman Work Phone: [facility] Work Phone: Start: 09-29-2021 AUDIT Huan O Gilman Work Phone: [facility] Work Phone: Start: 09-26-2021 AUDIT Huan O Gilman Work Phone: [facility] Work Phone: Start: 09-22-2021 AUDIT Huan O Gilman Work Phone: [facility] Work Phone: Start: 09-01-2021 Office outpatient vi sit 25 minutes Huan O Gilman Work Phone: [facility] Work Phone: Start: 08-25-2021 AUDIT Huan O Gilman Work Phone: [facility] Work Phone: Start: 08-08-2021 AUDIT Huan O Gilman Work Phone: [facility] Work Phone: Start: 08-01-2021 Chart Update Huan O Gilman Work Phone: [facility] Work Phone: Start: 07-21-2021 AUDIT Huan O Gilman Work Phone: [facility] Work Phone: Start: 06-20-2021 AUDIT Huan O Gilman Work Phone: [facility] Work Phone: Start: 06-09-2021 Phys/qhp telephone evaluation 21-30 min Huan O Gilman Work Phone: [facility] Work Phone: Start: 06-09-2021 CHRISTINE, Provider : Huan Gilman, Status: Pen, Time: 1:00 PM Huan O Gilman Work Phone: [facility] Work Phone: Start: 06-08-2021 Chart Update Huan O Gilman Work Phone: [facility] Work Phone: Start: 05-25-2021 Phys/qhp telephone evaluation 21-30 min Huan O Gilman Work Phone: [address] Work Phone: Start: 05-25-2021 CHRISTINE, Provider : Norman Valdivia, Status: Pen, Time: 10:45 AM Huan O Gilman Work Phone: [facility] Work Phone: Start: 05-23-2021 AUDIT Huan O Gilman Work Phone: [facility] Work Phone: Start: 04-22-2021 AUDIT Huan O Gilman Work Phone: [facility] Work Phone: Start: 04-11-2021 AUDIT Huan O Gilman Work Phone: [facility] Work Phone: Start: 03-24-2021 AUDIT Huan O Gilman Work Phone: [facility] Work Phone: Start: 03-07-2021 AUDIT Huan O Gilman Work Phone: [facility] Work Phone: Start: 02-11-2021 Chart Update Huan O Gilman Work Phone: [facility] Work Phone: Start: 02-04-2021 Office outpatient vi sit 25 minutes Huan O Gilman Work Phone: [facility] Work Phone: Start: 01-28-2021 AUDIT Huan O Gilman Work Phone: [facility] Work Phone: Start: 01-25-2021 AUDIT Huan O Gilman Work Phone: [facility] Work Phone: Start: 12-28-2020 AUDIT Huan O Gilman Work Phone: [facility] Work Phone: Start: 12-20-2020 AUDIT Huan O Gilman Work Phone: [facility] Work Phone: Start: 12-01-2020 AUDIT Huan O Gilman Work Phone: [facility] Work Phone: Start: 11-05-2020 Office outpatient vi sit 25 minutes Huan O Gilman Work Phone: [facility] Work Phone: Start: 11-05-2020 Chart Update Huan O Gilman Work Phone: [facility] Work Phone: Start: 11-02-2020 CHRISTINE, Provider : Huan Gilman, Status: Pen, Time: 2:30 PM Huan Gilman Work Phone: [facility] Work Phone: Start: 11-01-2020 AUDIT Huan Manriqueer Work Phone: [facility] Work Phone: Start: 10-21-2020 Chart Update Huan Manriqueer Work Phone: [facility] Work Phone: Start: 10-21-2020 Chart Update Huan Manriqueer Work Phone: [facility] Work Phone: Start: 10-13-2020 AUDIT Huan Manriqueer Work Phone: [facility] Work Phone: Start: 09-09-2020 AUDIT Huan Banerjeeyder Work Phone: [facility] Work Phone: Start: 04-05-2020 Patient encounter procedure Huan Gilman [facility] Work Phone: Start: 01-30-2020 Patient encounter procedure Huan Gilman [facility] Work Phone: Start: 12-17-2019 Patient encounter procedure Huan Gilman [facility] Work Phone: Start: 11-13-2019 Patient encounter procedure [facility] Work Phone: Start: 11-12-2019 [facility] Work Phone: Start: 10-30-2019 Patient [facility] Work Phone: Start: 10-20-2019 Patient encounter procedure Waqar Estrada [facility] Work Phone: Start: 10-15-2019 Patient encounter procedure Waqar XIONG [facility] [place] Work Phone: Start: 09-22-2019 Patient encounter procedure Waqar [facility] [place] Work Phone: Start: 09-19-2019 Patient encounter procedure Waqar [facility] [place] Work Phone: Start: 09-17-2019 Patient encounter procedure Waqar [facility] [place] Work Phone: Start: 09-15-2019 Patient encounter procedure Waqar [facility] [place] Work Phone: Start: 09-11-2019 Patient encounter procedure Waqar Estrada [facility] [place] Work Phone: Start: 09-10-2019 Patient encounter procedure Waqar [facility] [place] Work Phone: Start: 09-08-2019 Patient encounter procedure Waqar [facility] [place] Work Phone: Start: 09-05-2019 Patient encounter procedure Waqar XIONG [facility] [place] Work Phone: Start: 08-25-2019 Patient encounter procedure Waqar Estrada [facility] [place] Work Phone: Start: 08-21-2019 Patient encounter procedure Waqar Estrada [facility] [place] Work Phone: Start: 08-18-2019 Patient encounter procedure Waqar sEtrada [facility] [place] Work Phone: Start: 08-05-2019 Patient encounter procedure Huan Gilman [facility] Work Phone: Start: 07-29-2019 Patient encounter procedure Huan Gilman [facility] Work Phone: Start: 07-10-2019 Patient encounter procedure Huan Gilman [facility] Work Phone: Start: 05-20-2019 Patient encounter procedure Huan Gilman [facility] Work Phone: Start: 02-19-2019 Patient encounter procedure [facility] Work Phone: Start: 02-14-2019 Patient encounter procedure Huan Gilman [facility] Work Phone: Start: 02-05-2019 Patient encounter procedure Huan Gilman [facility] Work Phone: Procedures Date Procedure Procedure Detail Performing Clinician Start: 11-18-[address] Reuben Mullen MD Start: 11-17-[address] April hart MD Start: 11-14-[address] April Mullen MD Start: 11-13-2024 Plain chest X-ray Dr. April Mullen MD Start: 11-11-2024 Urnls dip stick/tablet reagent auto microscopy Dr. April Mullen MD Start: 11-11-2024 Complete ultrasound of kidneys and bladder Dr. April Mullen MD Start: 11-11-2024 Plain chest X-ray Dr. April Mullen MD Start: 11-09-2024 Plain chest X-ray Dr. April Mullen MD Start: 11-09-[address] Reuben Mullen MD Start: 10-28-[address] April hart MD [...] Start: 11-19-2023 Drug screen quantitative vancomycin Linda Grace PharmD Work Phone: Start: 11-19-2023 End: 11-19-2023 [...] Glucose quantitative blood xcpt reagent strip Ru Santos MD Work Phone: Start: 11-17-2023 Renal function panel Danny Deng MD Work Phone: Start: 11-16-2023 Glucose quantitative blood xcpt reagent strip Ru Santos MD Work Phone: Start: 11-16-2023 Renal function panel Danny Deng MD Work Phone: Start: 11-16-2023 Insertion picc w/o img gdn 5 yr/> Danny Deng MD Work Phone: Start: 11-16-2023 Radiologic exam chest single view Danny Deng MD Work Phone: Start: 11-16-2023 Glucose quantitative blood xcpt reagent strip Ru Santos MD Work Phone: Start: 11-16-2023 Glucose quantitative blood xcpt reagent strip Ru Santos MD Work Phone: Start: 11-16-2023 Glucose quantitative blood xcpt reagent strip Ru Santos MD Work Phone: Start: 11-15-2023 Glucose quantitative blood xcpt reagent strip Ru Santos MD Work Phone: Start: 11-15-2023 Glucose quantitative blood xcpt reagent strip Ru Santos MD Work Phone: Start: 11-15-2023 Renal function panel Danny Deng MD Work Phone: Start: 11-15-2023 Glucose quantitative blood xcpt reagent strip Ru Santos MD Work Phone: Start: 11-15-2023 Glucose quantitative blood xcpt reagent strip Ru Santos MD Work Phone: Start: 11-14-2023 Glucose quantitative blood xcpt reagent strip Ru Santos MD Work Phone: Start: 11-14-2023 XR tomography Unspecified body region Giovanna Coles MD Work Phone: Start: 11-14-2023 PULSE OXIMETRY, CONTINUOUS Carolina kc MD Work Phone: Start: 11-14-2023 Chloride toby Vidal MD Work Phone: Start: 11-14-2023 End: 11-14-2023 Cul bact xcpt urine blood/stool aerobic isol Braulio Oneil MD PhD Work Phone: Start: 11-14-2023 Chloride toby Vidal MD Work Phone: Start: 11-14-2023 PREPARE RBC Miles Vidal MD Work Phone: Start: 11-14-2023 End: 11-14-2023 Allograft for spine surgery only morselized Braulio Oneil MD PhD Work Phone: Start: 11-14-2023 Glucose quantitative blood xcpt reagent strip Ru Santos MD Work Phone: Start: 11-14-2023 Glucose quantitative blood xcpt reagent strip Ru Santos MD Work Phone: Start: 11-14-2023 Renal function panel Monique Anders MD Work Phone: Start: 11-13-2023 Radiologic exam chest single view Jadyn Chan MD Work Phone: Start: 11-13-2023 Glucose quantitative blood xcpt reagent strip Ru Santos MD Work Phone: Start: 11-13-2023 EXTRA URINE GONZALEZ TUBE Jadyn Chan MD Work Phone: Start: 11-13-2023 Urinalysis complete W Reflex Culture panel - Urine Jadyn Chan MD Work Phone: Start: 11-13-2023 Urnls dip stick/tablet reagent auto microscopy Jadyn Chan MD Work Phone: Start: 11-13-2023 Glucose quantitative blood xcpt reagent strip Ru Santos MD Work Phone: Start: 11-13-2023 Blood typing serologic rh (d) Monique Jose MD Work Phone: Start: 11-13-2023 Glucose quantitative blood xcpt reagent strip Ru Santos MD Work Phone: Start: 11-13-2023 Drug screen quantitative vancomycin Eulalia Champagne MD Work Phone: Start: 11-13-2023 Cul bact xcpt urine blood/stool aerobic isol Danny Deng MD Work Phone: Start: 11-13-2023 Biopsy bone trocar/needle deep Danny south MD Work Phone: Start: 11-13-2023 Glucose quantitative blood xcpt reagent strip Ru Santos MD Work Phone: Start: 11-12-2023 Glucose quantitative blood xcpt reagent strip Ru Santos MD Work Phone: Start: 11-12-2023 Glucose quantitative blood xcpt reagent strip Ru Santos MD Work Phone: Start: 11-12-2023 Glucose quantitative blood xcpt reagent strip Ru Santos MD Work Phone: Start: 11-12-2023 Glucose quantitative blood xcpt reagent strip Ru Santos MD Work Phone: Start: 11-12-2023 Basic metabolic panel calcium total Danny Deng MD Work Phone: Start: 11-12-2023 Blood typing serologic rh (d) Danny merida MD Work Phone: Start: 11-11-2023 Glucose quantitative blood xcpt reagent strip uR Santos MD Work Phone: Start: 11-11-2023 Renal function panel Danny Deng MD Work Phone: Start: 11-11-2023 Glucose quantitative blood xcpt reagent strip Ru Santos MD Work Phone: Start: 11-11-2023 Glucose quantitative blood xcpt reagent strip Ru Santos MD Work Phone: Start: 11-11-2023 End: 11-11-2023 Renal function panel Danny Deng MD Work Phone: Start: 11-10-2023 Glucose quantitative blood xcpt reagent strip Ru Santos MD Work Phone: Start: 11-10-2023 Glucose quantitative blood xcpt reagent strip Ru Santos MD Work Phone: Start: 11-10-2023 Glucose quantitative blood xcpt reagent strip Ru Santos MD Work Phone: Start: 11-10-2023 Glucose quantitative blood xcpt reagent strip Ru Santos MD Work Phone: Start: 11-10-2023 Drug screen quantitative vancomycin Eulalia Champagne MD Work Phone: Start: 11-10-2023 Glucose quantitative blood xcpt reagent strip Ru Santos MD Work Phone: Start: 11-09-2023 Glucose quantitative blood xcpt reagent strip Ru Santos MD Work Phone: Start: 11-09-2023 Glucose quantitative blood xcpt reagent strip Ru Santos MD Work Phone: Start: 11-09-2023 Glucose quantitative blood xcpt reagent strip Ru Santos MD Work Phone: Start: 11-09-2023 Culture bacterial blood aerobic w/id isolates Eulalia Champagne MD Work Phone: Start: 11-09-2023 Ecg routine ecg w/least 12 lds trcg only w/o i&r Giovanna Coles MD Work Phone: Start: 11-09-2023 Glucose quantitative blood xcpt reagent strip Ru Santos MD Work Phone: Start: 11-09-2023 Glucose quantitative blood xcpt reagent strip Ru Santos MD Work Phone: Start: 11-09-2023 Urnls dip [...] metabolic panel calcium total Dorota I Wittel SCRAP DROP CRANE OPERATOR-HARNESS INSPECTOR Work Phone: Start: 10-14-2023 Glucose quantitative blood [...] metabolic panel calcium total Dorota I Wittel SCRAP DROP CRANE OPERATOR-HARNESS INSPECTOR Work Phone: Start: 10-13-2023 Glucose quantitative blood [...] metabolic panel calcium total Dorota I Wittel SCRAP DROP CRANE OPERATOR-HARNESS INSPECTOR Work Phone: Start: 10-12-2023 Glucose quantitative blood [...] Basic metabolic panel calcium total Love A Schwemmariam SCRAP DROP CRANE OPERATOR-HARNESS INSPECTOR Work Phone: Start: 10-10-2023 Glucose quantitative blood [...] metabolic panel calcium total Love A Schwemley SCRAP DROP CRANE OPERATOR-HARNESS INSPECTOR Work Phone: Start: 10-10-2023 Culture bacterial quanttative colony count urine Flavio Aquino DO Work Phone: Start: 10-10-2023 Urinalysis microscopic panel - Urine Qualitative by Automated Flavio Aquino DO Work Phone: Start: 10-10-2023 Assay of troponin quantitative Flavio Aquino DO Work Phone: Start: 10-10-2023 Ct abdomen & pelvis w/o contrast material Flavio Aquino DO Work Phone: Start: 10-10-2023 End: 10-10-2023 Basic metabolic panel calcium total Flavio Aquino DO Work Phone: Start: 10-10-2023 Troponin I.cardiac panel - Serum or Plasma by High sensitivity method Flavio Aquino DO Work Phone: Start: 10-10-2023 Radiologic exam chest single view Louise Aquino DO Work Phone: Start: 10-10-2023 Ecg routine ecg w/least 12 lds trcg only w/o i&r Flavio Aquino DO Work Phone: Start: 08-20-2023 FOLLOW UP IN FAMILY MEDICINE MARLEEN SIGALA Start: 08-03-2023 ALKALINE PHOSPHATASE, ISOENZYMES HUAN ESPINOSA Start: 08-03-2023 GAMMA-GLUTAMYL TRANSFERASE HUAN GILMAN Start: 08-03-2023 Hepatic function 2000 panel - Serum or Plasma HUAN GILMAN Start: 08-02-2023 AMB REFERRAL TO CLINICAL PHARMACY HUAN GILMAN Start: 06-10-2023 XR FOOT RIGHT 3+ VIEWS HUAN GILMAN Start: 06-10-2023 Radex foot complete minimum 3 views Flavio Aquino DO Work Phone: Start: 05-21-2023 ALKALINE PHOSPHATASE, ISOENZYMES HUAN ESPINSOA Start: 05-21-2023 CBC panel - Blood by Automated count HUAN GILMAN Start: 05-21-2023 Comprehensive metabolic 1999 panel - Serum or Plasma HUAN GILMAN Start: 05-21-2023 Ferritin [Mass/volume] in Serum or Plasma HUAN GILMAN Start: 05-21-2023 IRON AND TIBC HUAN GILMAN Start: 05-21-2023 VITAMIN D 25-HYDROXY,TOTAL HUAN GILMAN Start: 03-06-2023 CBC panel - Blood by Automated count HUAN GILMAN Start: 03-06-2023 Comprehensive metabolic 2000 panel - Serum or Plasma HUAN GILMAN Start: 03-06-2023 Cyanocobalamin vitamin b-12 HUAN GILMAN Start: 03-06-2023 Hemoglobin A1c/Hemoglobin.total in Blood HUAN GILMAN Start: 03-06-2023 Lipid panel HUAN GILMAN Start: 03-06-2023 Magnesium [Mass/volume] in Serum or Plasma HUAN GILMAN Start: 03-06-2023 Lipid 1996 panel - Serum or Plasma Huan Gilman MD Work Phone: Start: 09-09-2022 Lipid 1996 panel - Serum or Plasma Huan Gilman MD Work Phone: Start: 11-13-2019 Lipid panel Huan Gilman Start: 07-11-2019 Lipid panel Huan Gilman Start: 05-20-2019 25 hydroxy includes fractions if performed Huan Gilman Start: 05-20-2019 Basic metabolic 1998 panel - Serum or Plasma Huan Gilman Start: 05-20-2019 Cyanocobalamin vitamin b-12 Huan Gilman Start: 05-20-2019 Hemoglobin glycosylated a1c Huan Gilman Start: 05-20-2019 Noninvasive colorectal cancer DNA and occult blood screening [Presence] in Stool Huan Gilman Start: 02-14-2019 Echocardiography Huan Gilman Start: 02-14-2019 Mammography Huan Gilman MD Work Phone: Start: 02-13-2019 Echocardiography Huan Gilman Start: 02-08-2019 Echocardiography Huan Gilman Start: 02-05-2019 Echocardiography Huan Gilman Start: 02-05-2019 MG Breast screening Huan Gilman Start: 02-05-2019 Thyrotropin [Units/volume] in Serum or Plasma Huan Gilman MD Work Phone: Start: 09-22-2011 Colonoscopy Flavio Aquino DO Work Phone: Start: 09-22-2011 Colonoscopy Huan Gilman Work Phone: Start: 04-09-2000 Cholecystectomy Huan Gilman Work Phone: Start: 04-09-1981 Ligation of fallopian tube Huan solomon Work Phone: section Huan solomon Cholecystectomy Huan Gilman Comment on above: Completed: 2000 End: 06-07-1997 Colonoscopy Huan Gilman Colonoscopy Huan Gilman Dilation and curettage Huan Gilman Comment on above: 1966 and 1978; Ligation of fallopian tube R lanre Gilman Comment on above: Completed: 1981 Plan of Treatment Date Care Activity Detail Author Start: 01-18-2033 DTaP/Tdap/Td Vaccine s (2 - Td or Tdap) DTaP/Tdap/Td Vaccines (2 - Td or Tdap) [place] Start: 01-18-2033 [place] Start: 11-18-2028 Cyanocobalamin vitam in b-[address] Start: 11-18-2028 [place] Start: 03-06-2028 Cyanocobalamin vitam in b-[address] Start: 09-10-2027 Cyanocobalamin vitam in [address] Start: 12-08-2024 Influenza vaccination Influenz a Vaccine (Season Ended) [facility] Start: 11-18-2024 Thyroid stimulating hormone measurement [place] Start: 11-18-2024 Patient discharge [facility] Start: 11-16-2024 Referral to gastroenterology service [facility] Start: 11-13-2024 Oxygen therapy [facility] Start: 11-13-2024 Speech therapy assessment [facility] Start: 11-12-2024 End: 11-12-2024 Patient encounter procedure [facility] Comment on above: Valve Clinic- Initia l Visit - 5M Walk,EKG,KCCQ Start: 11-11-2024 Referral to hunting guide [facility] Start: 11-10-2024 Following clinical pathway protocol [facility] Start: 11-10-2024 [facility] Start: 11-09-2024 Assessment of risk o f venous thromboembolism [facility] Start: 11-09-2024 Care regimes management [facility] Start: 11-09-2024 Elevation of affecte d extremity [facility] Start: 11-09-2024 Inhalation therapy procedure [facility] Start: 11-09-2024 Insertion of cathete r into peripheral vein [facility] Start: 11-09-2024 Measuring intake and output [facility] Start: 11-09-2024 Notification of physician [facility] Start: 11-09-2024 Patient education [facility] Start: 11-09-2024 Providing care accor ding to standard [facility] Start: 11-09-2024 Provision of activit y privileges [facility] Start: 11-09-2024 Referral to occupati onal therapist [facility] Start: 11-09-2024 Referral to service [facility] Start: 11-09-2024 End: 11-09-2024 [facility] Start: 11-09-2024 Verification routine [facility] Start: 11-09-2024 Admission procedure [facility] Start: 11-09-2024 End: 11-09-2024 Hospital admission, emergency, from emergency room, medical nature [facility] Start: 10-28-2024 Endoscopy upper smal l intestine w/biopsy SMALL BOWEL ENDOSCOPY/BIOPSY [facility] Start: 10-28-2024 Patient discharge [facility] Start: 07-25-2024 Screening for malign ant neoplasm of colon [place] Start: 07-18-2024 End: 07-18-2024 ambulatory [facility] Start: 07-18-2024 End: 07-18-2024 Telemedicine consultation with patient 07/18/2024 1:00 PM EDT Telemedicine [facility] [address] [place] [address] Marleen Sigala, SCRAP DROP CRANE OPERATOR-HARNESS INSPECTOR, DNP [address] [place] [address] [facility] Start: 07-01-2024 Colsc flx w/rmvl of tumor polyp lesion snare tq COLONOSCOPY W/LESION REMOVAL [facility] Start: 07-01-2024 Endoscopy upper smal l intestine w/biopsy SMALL BOWEL ENDOSCOPY/BIOPSY [facility] Start: 07-01-2024 Patient discharge [facility] Start: 06-18-2024 Evaluation of diagno stic study results [facility] Start: 04-09-2024 Advance Directive Discussion Advance Directive Discussion [facility] Start: 03-28-2024 [facility] Start: 03-06-2024 Lipid panel [place] Start: 02-28-2024 End: 02-28-2024 ambulatory [facility] Start: 02-28-2024 End: 02-28-2024 Patient encounter procedure 02/28/2024 10:00 AM EST Office Visit [facility] [address] [place] [address] Braulio Oneil MD PhD [id number] [facility] [address] [place], [place] [id number] [facility] Start: 12-27-2023 End: 12-26-2024 PET+CT Bone from skull base to mid-thigh W [id number] IV NM PET CT bone skull base to mid thigh Imaging Routine Vertebral osteomyelitis (Multi) Discitis, unspecified, thoracic region Expected: 12/27/2023 (Approximate), Expires: 12/26/2024 [facility] Service Area Work Phone: Comment on above: Expected: 12/27/2023 (Approximate), Expires: 12/26/2024 Start: 12-26-2023 End: 12-26-2023 ambulatory [facility] Start: 12-26-2023 End: 12-26-2023 Telemedicine consultation with patient 12/26/2023 10:20 AM EDT Telemedicine [facility] [address] [place] [address] [place] [address] [place] [address] [facility] Start: 12-18-2023 End: 12-18-2023 ambulatory [facility] Start: 12-18-2023 End: 12-18-2023 Patient encounter procedure 12/18/2023 1:00 PM EDT Office Visit [facility] [address] [place] [address] Huan Gilman MD [address] [facility] [place] [address] [facility] Start: 12-09-2023 Covid-19 Vaccine ( season) Covid-19 Vaccine () [facility] Start: 12-09-2023 COVID-19 Vaccine ( season) COVID-19 Vaccine ( season) [place] Start: 12-09-2023 COVID-19 Vaccine () COVID-19 Vaccine () [place] Start: 12-09-2023 Influenza vaccination [facility] Start: 12-04-2023 End: 11-19-2024 NM Whole body Bone Views [facility] Work Phone: Start: 12-04-2023 End: 12-04-2023 ambulatory [facility] Start: 11-20-2023 End: 08-19-2024 25-hydroxyvitamin D3 [Mass/volume] in Serum or Plasma Vitamin D 25-Hydroxy,Total (for eval of Vitamin D levels) Lab Routine Vitamin D deficiency Expected: 11/20/2023 (Approximate), Expires: 08/19/2024 [place] Work Phone: Comment on above: Expected: 11/20/2023 (Approximate), Expires: 08/19/2024 Start: 11-20-2023 End: 08-19-2024 Comprehensive metabolic 2000 panel - Serum or Plasma Comprehensive metabolic panel Lab Routine Diabetes 1.5, managed as type 2 (Multi) Expected: 11/20/2023 (Approximate), Expires: 08/19/2024 [place] Work Phone: Comment on above: Expected: 11/20/2023 (Approximate), Expires: 08/19/2024 Start: 11-20-2023 End: 08-19-2024 Hemoglobin A1c/Hemoglobin.total in Blood Hemoglobin A1C Lab Routine Diabetes 1.5, managed as type 2 (Multi) Expected: 11/20/2023 (Approximate), Expires: 08/19/2024 [facility] Service Area Work Phone: Comment on above: Expected: 11/20/2023 (Approximate), Expires: 08/19/2024 Start: 11-20-2023 End: 08-19-2024 Magnesium [Mass/volume] in Serum or Plasma Magnesium Lab Routine Diabetes 1.5, managed as type 2 (Multi) Expected: 11/20/2023 (Approximate), Expires: 08/19/2024 [place] Work Phone: Comment on above: Expected: 11/20/2023 (Approximate), Expires: 08/19/2024 Start: 11-16-2023 End: 11-15-2024 Broad Range PCR-Bacteria [facility] Work Phone: Start: 09-12-2023 Screening for malign ant neoplasm of colon [place] Start: 09-10-2023 Lipid panel Lipid Panel [place] Start: 08-20-2023 End: 08-20-2023 Telemedicine consultation with patient 08/20/2023 3:30 PM EDT Telemedicine [facility] [address] [place] [id number] Huan Gilman MD [address] [facility] [place] [address] [facility] Start: 08-10-2023 End: 08-10-2023 Patient encounter procedure 08/10/2023 2:30 PM EDT Appointment [address] [phone] [facility] Start: 07-20-2023 End: 07-20-2023 Patient encounter procedure 07/20/2023 2:30 PM EDT Office Visit [facility] [address] [facility] [address] [place] [phone] Marleen Sigala APRN-CNP, RAMON [address] [facility] [place] [phone] [place] [facility] Start: 06-06-2023 Hemoglobin A1c measurement [place] Start: 06-06-2023 Medicare Annual Well ness Visit [place] Start: 05-25-2023 End: 05-25-2023 Patient encounter procedure 05/25/2023 11:30 AM EST Office Visit [place] [facility] [address] [place] [phone] Marleen Sigala APRN-CNP, RAMON [address] [facility], [facility] [address] [place] [id number] [facility] Start: 05-23-2023 FUV, Provider: Norman Valdivia, Status: Pen, Time: 11:00 AM FUV, Provider: Norman Valdivia, Status: Pen, Time: 11:00 AM Keely Sabillon [place] Work Phone: Start: 12-28-2022 RSV High Risk: (Elde rly (60+) or Population) (1 - 1-dose 75+ series) RSV High Risk: (Elderly (60+) or Population) (1 - 1-dose 75+ series) [place] Start: 12-28-2022 RSV Vaccine (1 - 1-d ose 75+ series) RSV Vaccine (1 - 1-dose 75+ series) [facility] Start: 12-12-2022 End: 12-12-2022 Patient encounter procedure 12/12/2022 1:00 PM EDT Office Visit [facility] [address] [place] [id number] Huan Gilman MD [address] [facility] [place] [address] [facility] Start: 12-10-2022 Hemoglobin A1c measurement Diabetes: Hemoglobin A1C [place] Start: 12-08-2022 COVID-19 Vaccine ( season) COVID-19 Vaccine ( season) [place] Start: 12-08-2022 Influenza vaccination Influenza Vacc ine (#1) [place] Start: 12-08-2022 [place] Start: 10-13-2022 End: 10-14-2023 CBC panel - Blood by Automated count CBC Lab Routine Iron deficiency anemia secondary to inadequate dietary iron intake Expected: 10/13/2022 (Approximate), Expires: 10/14/2023 [facility] Service Area Work Phone: Comment on above: Expected: 10/13/2022 (Approximate), Expires: 10/14/2023 Start: 10-13-2022 End: 10-20-2022 Clostridioides difficile toxin A+B tcdA+tcdB genes [Presence] in Stool by SEFERINO with probe detection C. 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, without long-term current use of insulin ([facility]) Expected: 10/13/2022 (Approximate), Expires: 10/14/2023 [place] Work Phone: Comment on above: Expected: 10/13/2022 (Approximate), Expires: 10/14/2023 Start: 06-05-2022 FUV, Provider: Huan Gilman, Status: Pen, Time: 11:00 AM FUV, Provider: Huan Gilman, Status: Pen, Time: 11:00 AM [facility] Work Phone: Start: 05-24-2022 FUV, Provider: Norman Valdivia, Status: Pen, Time: 11:15 AM FUV, Provider: Norman Valdivia, Status: Pen, Time: 11:[address] Work Phone: Start: 03-07-2022 EPV, Provider: Huan Gilman, Status: Pen, Time: 2:00 PM EPV, Provider: Huan Gilman, Status: Pen, Time: 2:00 PM [facility] Work Phone: Start: 03-01-2022 COVID-19 Vaccine (3 - Booster for Rosa series) COVID-19 Vaccine (3 - Booster for Rosa series) [place] Start: 12-02-2021 VIRFUVHOME, Provider : Huan Gilman, Status: Pen, Time: 3:30 PM VIRFUVHOME, Provider: Huan Gilman, Status: Pen, Time: 3:30 PM [facility] Work Phone: Start: 09-21-2021 Screening for malign ant neoplasm of colon [place] Start: 09-13-2021 FUV, Provider: Huan Gilman, Status: Pen, Time: 1:00 PM FUV, Provider: Huan Gilman, Status: Pen, Time: 1:00 PM [facility] Work Phone: Start: 09-01-2021 VIRFUVHOME, Provider : Huan Gilman, Status: Pen, Time: 11:30 AM VIRFUVHOME, Provider: Huan Gilman, Status: Pen, Time: 11:30 AM [facility] Work Phone: Start: 06-09-2021 EPV, Provider: Huan Gilman, Status: Pen, Time: 1:00 PM EPV, Provider: Huan Gilman, Status: Pen, Time: 1:00 PM [facility] Work Phone: Start: 05-25-2021 FUV, Provider: Norman Valdivia, Status: Pen, Time: 10:45 AM FUV, Provider: Norman Valdivia, Status: Pen, Time: 10:45 AM [facility] Work Phone: Start: 05-24-2021 FUV, Provider: Rama Villagran, Status: Pen, Time: 11:00 AM FUV, Provider: Rama Villagran, Status: Pen, Time: 11:00 AM [facility] Work Phone: Start: 05-06-2021 EPV, Provider: Huan Gilman, Status: Pen, Time: 4:00 PM EPV, Provider: Huan Gilman, Status: Pen, Time: 4:00 PM [facility] Work Phone: Start: 02-04-2021 VIRFUVIMANE, Provider : Huan Gilman, Status: Pen, Time: 4:30 PM VIRFUVHOME, Provider: Huan Gilman, Status: Pen, Time: 4:30 PM [facility] Work Phone: Start: 11-02-2020 EPV, Provider: Huan Gilman, Status: Pen, Time: 2:30 PM EPV, Provider: Huan Gilman, Status: Pen, Time: 2:30 PM [facility] Work Phone: Start: 02-15-2020 Screening for malign ant neoplasm of breast Mammogram [place] Start: 02-06-2020 Thyroid stimulating hormone measurement TSH Level [place] Start: 02-14-2019 Echocardiography Echocardiogram [facility] Work Phone: Start: 02-14-2019 MG Breast screening Mamm - Scr eening Mammogram w/ Tomosynthesis [facility] [employer] Work Phone: Start: 03-04-2014 Zoster Vaccines (2 of 3) Zoste r Vaccines (2 of 3) [place] Start: 03-04-2014 [place] Start: 12-28-2012 Screening for osteoporosis Bone Density Screening [facility] Start: 2007 RSV patient s and/or patients aged 60+ years (1 - 1-dose 60+ series) RSV patients and/or patients aged 60+ years (1 - 1-dose 60+ series) [place] Start: 2007 [place] Start: 12-28-1997 Pneumococcal Vaccine : 50+ (1 of 1 - PCV) Pneumococcal Vaccine: 50+ (1 of 1 - PCV) [facility] Start: 12-28-1997 Shingrix Vaccine (1 of 2) Shingrix Vaccine (1 of 2) [facility] Start: 12-28-1992 Diabetes Screening Diabetes Screenin g [facility] Start: 12-28-1969 DTaP/Tdap/Td Vaccine s (1 - Tdap) DTaP/Tdap/Td Vaccines (1 - Tdap) [place] Start: 12-28-1966 Urine microalbumin profile DTaP,Tdap,Td Vaccine (1 - Tdap) [facility] Start: 12-28-1966 Urine screening for protein [place] Start: 12-28-1965 Anxiety Screening Anxiety Screening [facility] Start: 12-28-1965 Depression Screening Depression Scre ening [facility] Start: 12-28-1965 Hepatitis C screening [facility] Start: 12-28-1957 Diabetic foot examination [place] Start: 12-28-1957 Glaucoma screening [facility] Start: 12-28-1957 Ophthalmic examinati on and evaluation Diabetes: Retinopathy Screening [place] Start: 1947 Annual wellness visit Medicare Initial Physical (IPPE) [place] Start: 1947 Diabetes: Celiac Dis ease Screening Diabetes: Celiac Disease Screening [place] Start: 1947 Medicare Annual Well ness Visit Medicare Annual Wellness Visit (AWV) [place] Start: 1947 Screening for malign ant neoplasm of colon [place] Start: 1947 Screening for osteoporosis [place] Start: 1947 Thyroid stimulating hormone measurement TSH Level [place] Start: 1947 [place] End: 11-15-2023 Art Therapy eval and treat [place] Work Phone: End: 01-01-2025 C reactive protein [Mass/volume] in Serum or Plasma [place] Work Phone: End: 12-26-2024 C reactive protein [Mass/volume] in Serum or Plasma C-reactive protein Lab Routine Vertebral osteomyelitis (Multi) Once a week for 3 Occurrences starting 12/27/2023 until 12/26/2024 [place] Work Phone: Comment on above: Once a week for 3 Oc currences starting 12/27/2023 until 12/26/2024 End: 01-01-2025 CBC W Auto Differential panel - Blood [facility] Work Phone: End: 12-26-2024 CBC W Auto Differential panel - Blood CBC and Auto Differential Lab Routine Vertebral osteomyelitis (Multi) Once a week for 3 Occurrences starting 12/27/2023 until 12/26/2024 [place] Work Phone: Comment on above: Once a week for 3 Oc currences starting 12/27/2023 until 12/26/2024 CBC W Auto Different ial panel - Blood [facility] End: 01-01-2025 Comprehensive metabolic 2000 panel - Serum or Plasma [place] Work Phone: End: 12-26-2024 Comprehensive metabolic 2000 panel - Serum or Plasma Comprehensive metabolic panel Lab Routine Vertebral osteomyelitis (Multi) Once a week for 3 Occurrences starting 12/27/2023 until 12/26/2024 [place] Work Phone: Comment on above: Once a week for 3 Oc currences starting 12/27/2023 until 12/26/2024 ECG 12 lead ECG 12 lead ECG STAT 10/10/2023 1:16 AM EDT [place] Work Phone: Electrocardiogram, 12-lead PRN ACS symptoms Electrocardiogram, 12-lead PRN ACS symptoms ECG Routine As needed until discontinued starting 10/10/2023 [facility] Work Phone: Comment on above: As needed until disc ontinued starting 10/10/2023 Electrocardiogram, 12-lead PRN ACS symptoms [facility] Work Phone: End: 10-10-2023 Extra Urine Gonzalez Tube Extra Urine Gonzalez Tube Lab Timed Once for 1 Occurrences starting 10/10/2023 until 10/10/2023 [place] Work Phone: Comment on above: Once for 1 Occurrenc es starting 10/10/2023 until 10/10/2023 Glucose [Mass/volume ] in Serum or Plasma POCT Glucose Point of Care Testing - Docked Device Routine As needed (Lab) until discontinued starting 10/10/2023 [place] Work Phone: Comment on above: As needed (Lab) unti l discontinued starting 10/10/2023 Glucose [Mass/volume ] in Serum or Plasma [place] Work Phone: End: 10-14-2023 Hemoglobin.gastrointesti nal [Presence] in Stool --1st specimen Occult Blood, Stool Microbiology Routine Once (Lab) for 1 Occurrences starting 10/14/2023 until 10/14/2023 [facility] Work Phone: Comment on above: Once (Lab) for 1 Occ urrences starting 10/14/2023 until 10/14/2023 Lipid panel Lipid Panel [facility] Work Phone: Comment on above: Approx [id number] End: 11-16-2023 Methicillin resistant Staphylococcus aureus [Presence] in Nose by Organism specific culture [place] Work Phone: End: 10-15-2023 Music Therapy eval and treat Music Therapy eval and treat Therapeutic Recreation [employer]ables Routine Until therapy completed for 1 Occurrences starting 10/15/2023 until 10/15/2023 [facility] Work Phone: Comment on above: Until therapy comple kayla for 1 Occurrences starting 10/15/2023 until 10/15/2023 End: 11-19-2023 Music Therapy eval and treat [place] Work Phone: Patient Education GI Bleeding Ca uses and Tests [facility] Work Phone: Patient referral [facility] Work Phone: End: 11-13-2023 Prepare RBC: 1 Units [facility] Work Phone: End: 11-13-2023 Surgical pathology study [facility] Work Phone: End: 10-10-2023 Urinalysis complete W Reflex Culture panel - Urine Urinalysis with Reflex Culture and Microscopic Lab STAT Once (Lab) for 1 Occurrences starting 10/10/2023 until 10/10/2023 [facility] Service Area Work Phone: Comment on above: Once (Lab) for 1 Occ urrences starting 10/10/2023 until 10/10/2023 Urinalysis complete W Reflex Culture panel - Urine Urinalysis with Reflex Culture and Microscopic Lab STAT 10/10/2023 3:28 AM EDT [place] Work Phone: End: 11-22-2023 Vancomycin [Mass/volume] in Serum or Plasma [place] Work Phone: End: 01-01-2025 Vancomycin [Mass/volume] in Serum or Plasma --trough [place] Work Phone: End: 12-26-2024 Vancomycin [Mass/volume] in Serum or Plasma --trough Vancomycin, trough Lab Routine Vertebral osteomyelitis (Multi) Once a week for 3 Occurrences starting 12/27/2023 until 12/26/2024 [place] Work Phone: Comment on above: Once a week for 3 Oc currences starting 12/27/2023 until 12/26/2024 [facility] Work Phone: NEGATED: Highlighted row has been ruled out! Planned Goals not documented -[facility] Work Phone: Immunizations Immunization Date Immunization Notes Care Provider [facility] 01-02-2024 influenza, high dose seasonal, preservative-free Dominic LUCERO [facility] 01-18-2023 influenza, seasonal, injectable Huan Gilman MD Work Phone: [place] Work Phone: 01-18-2023 Pneumococcal conjuga te vaccine, 20-valent (PREVNAR 20) Huan Gilman MD Work Phone: [place] Work Phone: 01-18-2023 tetanus toxoid, redu sarah diphtheria toxoid, and acellular pertussis vaccine, adsorbed Huan Gilman MD Work Phone: [place] 01-18-2023 influenza virus vacc ine, unspecified formulation Flavio Aquino DO Work Phone: [place] Work Phone: 01-04-2022 influenza, high dose seasonal, preservative-free Huan Gilman Work Phone: [facility] Work Phone: Comment on above: Series: 01-04-2022 Influenza, High-dose Seasonal, Quadrivalent, Preservative Free Huan Gilman MD Work Phone: [place] Work Phone: 01-04-2022 Pfizer COVID-19 Vac Bivalent 30 MCG/0.3ML Intramuscular Suspension Huan Gilman Work Phone: [facility] Work Phone: 01-04-2022 Pfizer-BioNTech COVI D-19 Vacc 30 MCG/0.3ML Intramuscular Suspension Huan Gilman Work Phone: [facility] Work Phone: Comment on above: Series: 01-04-2022 influenza virus vacc ine, unspecified formulation Huan Gilman MD Work Phone: [place] Work Phone: 02-10-2021 Pfizer-BioNTech COVI D-19 Vacc 30 MCG/0.3ML Intramuscular Suspension Huan Gilman Work Phone: [facility] Work Phone: 01-20-2021 Fluzone High-Dose Quadrivalent 0.7 ML Intramuscular Suspension Prefilled Syringe Huan Gilman Work Phone: [facility] Work Phone: 06-11-2020 Rosa COVID-19 Vac cine 0.5 ML Intramuscular Suspension Huan Gilman Work Phone: [place] Comment on above: Series: 01-30-2020 Fluzone High-Dose Quadrivalent 0.7 ML Intramuscular Suspension Prefilled Syringe Huan Gilman [facility] Work Phone: Comment on above: Series: 01-30-2020 influenza, seasonal, injectable Huan Gilman [facility] Work Phone: 01-10-2019 influenza, high dose seasonal, preservative-free Huan [facility] Comment on above: Series: 12-28-2017 influenza virus vacc ine, unspecified formulation; Translations: [influenza virus vaccine, unspecified formulation] Huan Gilman [facility] Work Phone: Comment on above: Series: 12-28-2017 influenza, high dose seasonal, preservative-free Huan Gilman MD Work Phone: [place] Work Phone: 01-15-2017 influenza, high dose seasonal, preservative-free Huan Gilman Work Phone: [facility] Work Phone: 05-23-2016 pneumococcal conjuga te vaccine, 13 valent [facility] Comment on above: Series: 02-22-2016 influenza virus vacc ine, unspecified formulation Huan Gilman Work Phone: [facility] Work Phone: 01-29-2016 influenza, high dose seasonal, preservative-free Huan Gilman Work Phone: [facility] Work Phone: 01-07-2014 pneumococcal polysaccharide vaccine, 23 valent Huan Gilman [facility] Work Phone: Comment on above: Series: 01-07-2014 zoster vaccine, live Huan Gilman [facility] Work Phone: Comment on above: Series: 02-25-2009 novel influenza-H1N1 -09, preservative-free, injectable Huan Gilman Work Phone: [facility] Work Phone: 02-15-2007 influenza virus vacc ine, whole virus Huan Gilman Work Phone: [facility] Work Phone: Payers Date Payer Category Payer Medicare [id number] 2023 Self-pay 2023 Medicare (Managed Care) 1.2. [id number] 2023 Unknown 2023 Unknown [id number] 2021 Medicare ANTHEM MEDICARE ANTHEM MEDICARE ADVANTAGE [id number] 2021-Present [address] [place] [address] [id number] 2021 Unknown [id number] 1945 Unknown [id number] 2.16.840.1.344044.3.579.2 .1069 1945 Unknown [id number] 2.16.840.1.632137.3.579.2 .1243 1945 Unknown [id number] 2.16.840.1.708817.3.579.2 .1243 1945 Unknown [id number] 2.16.840.1.119581.3.579.2 .1243 1945 Unknown [id number] 2.16.840.1.530698.3.579.2 .1244 1945 Unknown [id number] 2.16.840.1.216075.3.579.2 .1244 1945 Unknown [id number] 2.16.840.1.641359.3.579.2 .1244 1945 Unknown [id number] 2.16.840.1.200254.3.579.2 .1244 1945 Unknown [id number] 2.16.840.1.770420.3.579.2 .1244 1945 Unknown [id number] 2.840.1.512218.3.579.2 .1244 1945 Unknown [id number] 2.840.1.921916.3.579.2 .1243 1945 Unknown [id number] 2.840.1.955838.3.579.2 .1243 1945 Unknown [id number] 2.840.1.687313.3.579.2 .1243 1945 Unknown [id number] 2.16.840.1.105437.3.579.2 .1244 Unknown [id number] 2.16.840.1.355998.3.579.2 .462 Unknown [id number] 2.16840.1.991845.3.579.2 .462 Unknown [id number] 2.16.840.1.733663.3.579.2 .462 Unknown [id number] 2.16.840.1.023075.3.579.2 .462 Unknown [id number] 2.16.840.1.585121.3.579.2 .462 Unknown [id number] 2.16.840.1.902493.3.579.2 .462 Unknown [id number] 2.16.840.1.680800.3.579.2 .462 Unknown [id number] 2.16.840.1.859400.3.579.2 .462 Unknown [id number] 2.16.840.1.216561.3.579.2 .462 Unknown [id number] 2.16.840.1.237615.3.579.2 .462 Unknown [id number] 2.16.840.1.082587.3.579.2 .462 Unknown [id number] 2.16.840.1.500002.3.579.2 .462 Unknown [id number] 2.16.840.1.224785.3.579.2 .462 Unknown [id number] 2.16840.1.217438.3.579.2 .462 Unknown [id number] 2.16840.1.704188.3.579.2 .462 Unknown [id number] 2.840.1.282834.3.579.2 .462 Unknown [id number] 2.840.1.277154.3.579.2 .462 Unknown [id number] 2.840.1.742416.3.579.2 .462 Unknown [id number] 2.16840.1.629966.3.579.2 .462 Unknown [id number] 2.840.1.885810.3.579.2 .462 Unknown [id number] 2.840.1.039589.3.579.2 .462 Unknown [id number] 2.16840.1.733852.3.579.2 .462 Unknown [id number] 2.16.840.1.449314.3.579.2 .462 Unknown [id number] 2.16.840.1.713891.3.579.2 .462 Unknown [id number] 2.16.840.1.629628.3.579.2 .462 Unknown [id number] 2.16.840.1.062580.3.579.2 .462 Unknown [id number] 2.16.840.1.866654.3.579.2 .462 Unknown [id number] 2.16.840.1.051943.3.579.2 .462 Unknown [id number] 2.16.840.1.605715.3.579.2 .462 Unknown [id number] 2.16.840.1.544032.3.579.2 .462 Unknown [id number] 2.16.840.1.350882.3.579.2 .462 Unknown [id number] 2.16.840.1.925423.3.579.2 .462 Unknown [id number] 2.16840.1.332755.3.579.2 .462 Unknown [id number] 2.16840.1.208051.3.579.2 .462 Unknown [id number] 2.16840.1.125213.3.579.2 .462 Unknown [id number] 2.16840.1.454397.3.579.2 .462 Unknown [id number] 2.16840.1.880889.3.579.2 .462 Unknown [id number] 2.16.840.1.147350.3.579.2 .462 Unknown [id number] 2.16840.1.191921.3.579.2 .462 Unknown [id number] 2.16.840.1.717109.3.579.2 .462 Unknown [id number] 2.16.840.1.413528.3.579.2 .462 Unknown [id number] 2.16.840.1.676720.3.579.2 .462 Unknown [id number] 2.16.840.1.839101.3.579.2 .462 Unknown [id number] 2.16.840.1.264153.3.579.2 .462 Unknown [id number] 2.16.840.1.273844.3.579.2 .462 Unknown [id number] 2.16.840.1.107405.3.579.2 .462 Unknown [id number] 2.16.840.1.982518.3.579.2 .462 Unknown [id number] 2.16.840.1.838479.3.579.2 .462 Unknown [id number] 2.16.840.1.621832.3.579.2 .462 Unknown [id number] 2.16.840.1.257448.3.579.2 .462 Unknown [id number] 2.16.840.1.514527.3.579.2 .462 Social History Date Type Detail Facility - - [facility] [employer] Work Phone: Start: 10-13-2022 End: 11-16-2023 Never a smoker Never a smoker [facility] Work Phone: Start: 08-31-2022 End: 11-09-2024 Tobacco smoking status NHIS Never smoked tobacco [place] Work Phone: Start: 08-31-2022 Tobacco use and exposure Smokeless tobacco non-user [place] Work Phone: Start: 10-13-2022 End: 12-04-2023 Alcohol intake Lifetime non-drinker (finding) [place] Work Phone: Start: 10-13-2022 End: 11-16-2023 Tobacco use panel [place] Work Phone: Start: 1945 Sex Assigned At Not on file [facility] Work Phone: Start: 10-03-2022 End: 02-28-2024 Exposure to SARS-CoV-2 (event) Not sure [place] Start: 04-10-2023 End: 08-02-2023 Exposure to SARS-CoV-2 (event) Unable to assess [place] How often to you hav e a drink containing alcohol? Never [place] How many standard drinks containing alcohol do you have on a typical day? Patient does not drink [place] Work Phone: In the past 12 months, was there a time when you were not able to pay the mortgage or rent on time? No [place] Start: 06-13-2024 End: 07-15-2024 Sex Female (finding) [facility] Start: 1945 Sex Assigned At Female W [facility] Tobacco smoking status MSIS Tobacco smoking consumption unknown [facility] NEGATED: Highlighted row Not [facility] Medical Equipment Procedure Code Equipment Code [...] goal Functional Status Date Assessment Result Facility 11-18-2024 Functional status Bedrest [facility] Work Phone: NEGATED: Highlighted row Functional performance Functional status health issues are not documented Disease [facility] Work Phone: Mental Status Date Assessment Result Facility 11-18-2024 Cognitive function Voice/Name [facility] Work Phone: 10-28-2024 Cognitive function Level Of Cons ciousness Sedated [facility] Work Phone: 10-28-2024 Cognitive function Voice/Name [facility] Work Phone: 07-01-2024 Cognitive function Voice/Name [facility] Work Phone: 03-28-2024 Cognitive function Level Of Cons ciousness Awake;Alert;Appropriate ;Follows Commands [facility] Work Phone: NEGATED: Highlighted row Cognitive function [Interpretation] Cognitive status health issues are not documented Disease [facility] Work Phone: Clinical Notes 02-14-2019 to 11-18-2024 Note Date & Type Note Facility 11-18-2024 Note [facility] 11-18-2024 Consult note [facility] 11-18-2024 Consult note [facility] 11-18-2024 Discharge summary [facility] 11-17-2024 Consult note Note Date/Time November 18, 2024 11:06am [facility] Medical Records Department [address] [place] [address] Anesthesia Postop Eval II 11/17/24 1638 MR#: [id number] Acct: [id number] Name: DARYN GUILLERMO BLANE Rep #:[id number] : 1945 78 From: Jessica Velez CRNA PCP: Dr. Delgado Amaro, DO Status:ADM IN Y Race: C Location: [place] [address] 2-1 Anesthesia Postop Eval I Sum Postop Eval Completion status Anesthesia document: Postop Eval 1 completed: Yes Anesthesia Postop Eval I Summary Anesthesia Postop Eval I Summary: Anesthesia Postop Eval I: Assessment Summary Airway patent Yes 11/17/24 13:54 [email or web address] Spontaneous unlabored Yes 11/17/24 13:54 [email or web address] respirations Mental status Asleep 11/17/24 13:54 [email or web address] nausea No 11/17/24 13:54 [email or web address] Vomiting No 11/17/24 13:54 [email or web address] Anesthesia Postop Eval I: Fluid Summary Crystalloid volume administer 200 11/17/24 13:54 [email or web address] (ml) Colloids volume administered ( ml) Blood Product volume administered (ml) Total IV fluid infused 200 11/17/24 13:54 [email or web address] Anesthesia Postop Eval I: Summary Notes Anesthesia Complication No 11/17/24 13:54 [email or web address] Anesthesia Complication Comment: Post-operative progress note Anesthesia: Postop Eval II Evaluation Mental status: Awake Pain Level: 0 nausea: No Vomiting: No 11/17/24 1638 <Electronically signed by Jessica glass [employer] SH[employer] SUPERVISOR> Date _ Jessica Velez [employer] SUPERVISOR Cosigner Signature: Date CC: ~ Signed [facility] Work Phone: 1(265) 950-802208-11-2025 Consult note Author Jones Greer [facility] Note Date/Time November 17, 2024 1: 54pm [facility] Medical Records Department [address] [place] [address] Anesthesia Postop Eval I 11/17/24 1353 MR#: [id number] Acct: [id number] Name: DARYN GUILLERMO Rep #:[id number] : 1945 78 From: Jones Greer PCP: Dr. Delgado Amaro, DO Status:ADM IN Y Race: C Location: [address] Anesthesia: Postop Eval I Current Vital Signs Temperature: 97.2 F Pulse Rate: 79 Blood Pressure: 114/83 Respiratory Rate: 16 Pulse Ox: 99 Oxygen Delivery Method: Room Air Assessment Airway patent: Yes Spontaneous unlabored respirations: Yes Mental status: Asleep nausea: No Vomiting: No Anesthesia Complication: No Fluid Hydration Crystalloid volume administer (ml): 200 Total IV fluid infused: 200 Progress Note Anesthesia document: Postop Eval 1 completed: Yes 11/17/24 1354 <Electronically signed by Jones Greer > Date _ Jones Acevedo Signature: Date CC: ~ Signed [facility] Work Phone: 1(133) 907-628908-11-2025 Consult note Author Manuel Campuzano [facility] Note Date/Time November 17, 2024 1: 29pm [facility] Medical Records Department [address] [place] [address] Pre-Anesthesia Evaluation 11/17/24 1311 MR#: [id number] Acct: [id number] Name: DARYN GUILLERMO Rep #:[id number] : 1945 78 From: Manuel Campuzano MD PCP: Dr. Delgado Amaro, DO Status:ADM IN Y Race: C Location: [place] [address] 2-1 ASA Classification* ASA Classification ASA Classification: 3 [...] MAC History Source History Obtained from:: Patient and Chart Anesthesia Focused Assessment* Temperature: 97.7 F Pulse Rate: 73 Blood Pressure: 95/42 Respiratory Rate: 12 Pulse Ox: 100 Oxygen Delivery Method: Nasal Cannula Oxygen Flow Rate (L/min): 2 Airway Assessment Mouth opens: >3 cm Mallampati Score: III Teeth Condition: Dentures (Patient has upper dentures which are currently out.) and Missing (Patient is edentulous on the bottom.) Neck Range of motion (ROM): Limited ROM (Severe Restriction) Labs Anesthesia Preop lab: CBC WBC 7.9 K/mm3 (4.4-11.0) 11/17/24 05:48 11/17/24 RBC 3.67 M/mm3 (4.2-5.4) L 11/17/24 05:48 11/17/24 Hgb 9.9 g/dL (12.0-15.0) L 11/17/24 05:48 11/17/24 Hct 33.2 % (37-47) L 11/17/24 05:48 11/17/24 Plt Count 93 K/mm3 (150-450) L 11/17/24 05:48 11/17/24 CHEMISTRY Potassium 3.2 mmol/L (3.3-5.1) L 11/17/24 05:48 11/17/24 Sodium 137 mmol/L (133-145) 11/17/24 05:48 11/17/24 Magnesium 2.1 mg/dL (1.5-2.2) 11/10/24 05:55 11/10/24 Phosphorus 3.4 mg/dL (2.5-4.9) 01/01/24 04:42 01/01/24 BUN 48 mg/dL (4-19) H 11/17/24 05:48 11/17/24 Creatinine 1.55 mg/dL (0.70-1.20) H 11/17/24 05:48 Glucose 118 mg/dL (70-99) H 11/17/24 05:48 11/17/24 POC Glucose 109 mg/dL (74-106) H 11/17/24 11:57 11/17/24 TSH 1.650 uIU/mL (0.358-3.740) 01/01/24 04:42 12/09 07/31 COAG PT 20.9 SECONDS (11.7-14.9) H 12/31/23 17:57 12/09 06/30 Pre-Assessment Diagnosis/Proposed Procedure Planned Operative Procedure(s): Esophagogastroduodenoscopy Anesthesia History Anesthesia History - r d engineer: Anesthesia History - r d engineer Hx Hospitalization Yes: [facility] 10/21/24 08:35 Any Problems With Anesthesia No 10/21/24 08:35 Cholinesterase deficiency No 10/21/24 08:35 You/Your Family Experience No 10/21/24 08:35 fever (hyperthermia) with Relationship Recent Exposure to Contagious No 10/28/24 10:53 Disease Does patient have nerve No 10/21/24 08:35 stimulator Patient instructed to have device shut off --Does patient have Pacemaker No 11/17/24 04:03 or ICD? When Was Last Pacemaker Check QUESTION #4 FULL TEXT: You/Your Family Experience fever (hyperthermia) with Anesthesia Last Oral Intake Last Oral intake: Last Oral Intake NPO since 00:01 11/17/24 04:03 Meds taken in AM with sips of water? Meds patient instructed to take am of surgery PONV PONV - r d engineer: PONV - r d engineer Female HX of Motion Sickness HX of N/V After Surgery Non-Smoker Duration of Surgery greater than 60 minutes Number of Risk Factors PONV Score Height & Weight Height & Weight: Anesthesia: Height & Weight Height 5 ft 6 in 11/17/24 04:03 Weight: 111.448 kg 11/17/24 04:03 Body Mass Index (BMI) 39.6 11/17/24 04:03 Respiratory Assessment Respiratory Assessment - r d engineer: Respiratory Tract Infection Hx - r d engineer Hx Respiratory Tract Infection No 10/21/24 08:35 Any additional information?: Yes Hx Respiratory Tract Infection: Yes History of Anesthesia Respiratory Infection details: Patient admitted with possible aspiration pneumonia. Patient is currently on nasal cannula oxygen. Not feeling any shortness of breath. STOP Sleep Apnea STOP Sleep Apnea - r d engineer: STOP Sleep Apnea - r d engineer Hx Hypertension Yes 11/09/24 12:59 Hx Sleep Apnea No 11/09/24 09:08 CPAP BIPAP Do you snore loudly (louder No 11/09/24 09:08 than talking or can be heard Do you often feel tired/ Yes 11/09/24 09:08 fatigued/ sleepy during daytime? Has anyone observed you stop No 11/09/24 09:08 breathing during sleep? STOP Results Positive 11/09/24 09:08 QUESTION #5 FULL TEXT : Do you snore loudly (louder than talking or can be heard through closed doors)? 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 Specify any problems Hx of Preganancy in last 3 No 11/09/24 09:08 Months Nurse Filling Out Transfusion [id number] 11/09/24 09:08 & Questions: Date: 11/09/24 11/09/24 09:08 Time: 09:15 11/09/24 09:08 Patient unable to answer at this time (ie. 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 INHALATION 2.5 mg Q2H PRN PRN Administration SOB &/OR WHEEZING Apixaban 5 mg 11/09/24 10:00 11/17/24 11:03 Apixaban 5 Mg Tablet PO Not Given BID SEVEN Benzonatate 100 mg 11/09/24 08:25 Benzonatate 100 Mg Capsule PO TID PRN cough Buspirone HCl 5 mg 11/09/24 10:00 11/16/24 22:51 Buspirone 5 Mg Tablet PO 5 mg BID SEVEN Administration Carvedilol 6.25 mg 11/11/24 17:00 11/17/24 12:02 Carvedilol 6.25 Mg Tablet PO 6.25 mg BIDCM SEVEN Administration Protocol Cyclobenzaprine HCl 5 mg 11/09/24 14:00 11/17/24 06:23 Cyclobenzaprine Hcl 5 Mg Tablet PO 5 mg TID SEVEN Administration Docusate Sodium 100 mg 11/09/24 10:00 11/17/24 11:04 Docusate Sodium 100 Mg Capsule PO Not Given BID [facility] Ferrous Sulfate 325 mg 11/09/24 12:00 11/17/24 11:05 Ferrous Sulfate 325 Mg Tablet PO Not Given DAILY@1200 SEVEN Glucagon 1 mg 11/09/24 08:25 Glucagon 1 Mg/Ml Syringe IM X1 PRN HYPOGLYCEMIA Protocol Dextrose 250 mls @ 0 mls/hr 11/09/24 08:25 Dextrose 10%-Water IV .Q0M PRN HYPOGLYCEMIA Protocol As Directed Sodium Chloride 250 mls @ 15 mls/hr 11/10/24 11:05 IV .[id number] PRN Saline Flush Sodium Chloride 250 mls @ 15 mls/hr 11/10/24 11:05 IV .[id number] PRN Additional IVPB Infusion Sodium Chloride 1,000 mls @ 75 mls/hr 11/14/24 11:35 11/17/24 12:29 IV 75 mls/hr .[id number] SEVEN Infusion Insulin Glargine 4 unit 11/09/24 10:00 11/17/24 11:05 Insulin Glargine-Yfgn 100 Unit/Ml Pen SC Not Given DAILY [facility] Insulin Human Lispro 0 unit 11/09/24 11:00 11/17/24 06:23 Insulin Lispro 100 Unit/Ml Insuln.Pen SC Not Given ACHS [facility] Protocol Melatonin 6 mg 11/09/24 22:00 11/16/24 22:51 Melatonin 3 Mg Tablet PO Not Given QHS [facility] Nystatin 1 applic 11/10/24 10:00 11/16/24 22:52 Nystatin Powder 15gm Bottle TOPICAL 1 applic BID [facility] Administration Protocol Ondansetron HCl 4 mg 11/09/24 08:25 11/10/24 19:25 Ondansetron 4 Mg/2 Ml Vial IV 4 mg Q8H PRN PRN Administration NAUSEA/VOMITING Pantoprazole Sodium 40 mg 11/09/24 10:00 11/17/24 11:05 Pantoprazole Sodium 40 Mg Tablet PO Not Given DAILY [facility] Polyethylene Glycol 17 gm 11/09/24 10:00 11/17/24 11:05 Polyethylene Glycol 3350 17 Gm Packet PO Not Given QODAY [facility] Senna/Docusate Sodium 2 tablet 11/09/24 08:25 Senna/Docusate Sodium 1 Tablet PO BID PRN PRN Constipation Sodium Chloride 10 - 40 ml 11/10/24 11:05 11/12/24 15:14 0.9% Saline Lock 10 Ml Syringe IV 20 ml UD PRN Administration SALINE FLUSH Venlafaxine HCl 150 mg 11/09/24 10:00 11/16/24 09:41 Venlafaxine Xr 150 Mg Capsule PO 150 mg DAILY SEVEN Administration PFSH Medical History Post-menopausal History of ulceration Gastric reflux History of stress test History of irregular heartbeat Aortic stenosis Lives in snf Wears glasses Wears partial dentures Marijuana use [...] History iron) tablet furosemide 20 mg tablet 40 mg PO QAM 04/28/24 Unknow n History [...] / Time No Known Allergies Allergy Verified 11/09/24 04:29 Family History Mother Alzheimer dementia Breast cancer Heart disease Brother Cystic fibrosis Surgical History History of colonoscopy S/P laminectomy History of tubal ligation Hx of cholecystectomy H/O section Social History Smoking Status: Never smoker alcohol intake: never Review of Systems (Anesthesia) ROS Narrative System reviewed and no additional complaints, except as documented. 11/17/24 1329 <Electronically signed by Manuel hyde MD> Date _ Manuel Campuzano MD Cosigner Signature: Date CC: ~ Signed [facility] Work Phone: 1(734) 966-868008-11-2025 Consult note Author Jacinto Friend [facility] Note Date/Time November 17, 2024 1: 15pm [facility] Medical Records Department [address] [place] [address] Consultation - GI 11/17/24 1313 MR#: [id number] Acct: [id number] Name: DARYN GUILLERMO BLANE Rep #:[id number] : 1945 78 From: Jacinto Munoz DO PCP: Dr. Delgado Amaro DO Status:ADM IN Location: [facility] [id number] HPI Consult Data Date of Consult: 11/17/24 HPI Narrative Reason for Consultation: Dysphagia HPI Narrative: DARYN GUILLERMO, is a 78-year-old female history of heart failure with reduced ejection fraction, diabetes, A-fib on Eliquis, COPD, GERD, depression and anxiety who presented [facility] ED 11/09/2024 due to increasing lower extremity swelling, weight gain, orthopnea and worsening dyspnea. She wasdiagnosed with CHF exacerbation. During her stay she was noted to have worsening swallowing with solids. She does have history gastroesophageal refluxdisease. I was consulted for esophageal dysphagia. She denies any odynophagia. She denies any chest pain. She was short of breathon admission but that is improved. [facility] Medical History Post-menopausal History of ulceration Gastric reflux History of stress test History of irregular heartbeat Aortic stenosis Lives in snf Wears glasses Wears partial dentures Marijuana use [...] History iron) tablet furosemide 20 mg tablet 40 mg PO QAM 04/28/24 Unknow n History [...] / Time No Known Allergies Allergy Verified 11/09/24 04:29 Family History Mother Alzheimer dementia Breast cancer [...] rectal bleeding, tenesmus, vomiting or weight changes Physical Exam Const alert, oriented x3, no apparent distress and healthy appearing General Appearance: cooperative GI normal to inspection, nondistended, normoactive bowel sounds, soft to palpation,non-tender and non-distended Percussion: normal to percussion Rectal Exam: deferred Lab / Micro Data 11/17/24 05:48 11/17/24 05:48 Labs: Laboratory Results - last 24 hr 11/16/24 16:37: POC Glucose 152 H 11/16/24 22:49: POC Glucose 149 H 11/17/24 05:48: WBC 7.9, RBC 3.67 L, Hgb 9.9 L, Hct 33.2 L, MCV 90.5, MCH 27.0, MCHC 29.8 L, RDW Std Deviation 56.6 H, RDW Coeff of Josiah 17.7 H, Plt Count 93 L, MPV 10.2, Immature Gran % (Auto) 0.500, Neut % (Auto) 63.5, Lymph % (Auto) 22.6,[place] % (Auto) 10.4 H, Eos % (Auto) 2.7, Baso % (Auto) 0.3, Absolute Neuts (auto)5.0, Absolute Lymphs (auto) 1.78, Nucleated RBC % 0, Differential Comment SCANNED, Platelet Estimate MOD DEC, Sodium 137, Potassium 3.2 L, Chloride 99, Carbon Dioxide 25.8, Anion Gap 13, BUN 48 H, Creatinine 1.55 H, Estim Creat Clear Calc 39.03 L, Est GFR (MDRD) Non-Af 35 L, BUN/Creatinine Ratio 30.6 H, Glucose 118 H, Calcium 8.3 11/17/24 06:21: POC Glucose 110 H 11/17/24 11:57: POC Glucose 109 H Assessment & Plan Assessment/Plan (1) Dysphagia: PLAN: Patient will undergo an upper endoscopy to evaluate upper GI tract. She was explained alternatives, risk and benefits include not withstanding bleeding,infection, subs, perforation, need for charge and . She will have an ASA of 3. Charges/Coding Visit Charges Inpatient E&M: 60056 Init Hosp L2 11/17/24 1315 <Electronically signed by Jacinto Friend > Cosigner Signature (if applicable): CC: Dr. Delgado Amaro DO~ Signed [facility] [facility] Work Phone: [phone]) 329-648008-11-2025 Progress note Author Shabbir Ricks [facility] Note Date/Time November 17, 2024 12 :54pm [facility] Medical Records Department [address] [place] [address] Progress Note - Hospitalist 11/17/24 1243 MR#: [id number] Acct: [id number] Name: DARYN GUILLERMO Rep #:[id number] 3 : 1945 78 From: Shabbir loredo MD PCP: Dr. Delgado Amaro DO Status:ADM IN Location: [place] [address] Subjective Subjective Resting comfortably, maintaining her oxygen saturations on 2 L nasal cannula Objective Data Objective Data Vital Signs: Vital Signs Temp Pulse Resp BP Pulse Ox O2 Del Method O2 Flow Rate 97.7 F L 73 12 95/42 L 100 Nasal Cannula 2 11/17/24 11:58 11/17/24 11:58 11/17/24 11:58 11/17/24 11:58 11/17/24 11:58 11/17/24 11:58 11/17/24 11:58 Oxygen Flow Rate (L/min) 2 Oxygen Delivery Method Nasal Cannula Weight: 245 lb 11.2 oz Body Mass Index (BMI) 39.6 Intake & Output: Intake and Output for Last 24 Hours 11/16/24 11/17/24 11/18/24 03:59 03:59 03:59 Intake Total 2850 / 2850 1700 / 1700 1456.25 / 1456.25 Output Total 1650 / 1650 975 / 975 625 / 625 Balance 1200 / 1200 725 / 725 831.25 / 831.25 Lab / Micro Data 11/17/24 05:48 11/17/24 05:48 Labs: Laboratory Results - last 24 hr 11/16/24 16:37: POC Glucose 152 H 11/16/24 22:49: POC Glucose 149 H 11/17/24 05:48: WBC 7.9, RBC 3.67 L, Hgb 9.9 L, Hct 33.2 L, MCV 90.5, MCH 27.0, MCHC 29.8 L, RDW Std Deviation 56.6 H, RDW Coeff of Josiah 17.7 H, Plt Count 93 L, MPV 10.2, Immature Gran % (Auto) 0.500, Neut % (Auto) 63.5, Lymph % (Auto) 22.6,[place] % (Auto) 10.4 H, Eos % (Auto) 2.7, Baso % (Auto) 0.3, Absolute Neuts (auto)5.0, Absolute Lymphs (auto) 1.78, Nucleated RBC % 0, Differential Comment SCANNED, Platelet Estimate MOD DEC, Sodium 137, Potassium 3.2 L, Chloride 99, Carbon Dioxide 25.8, Anion Gap 13, BUN 48 H, Creatinine 1.55 H, Estim Creat Clear Calc 39.03 L, Est GFR (MDRD) Non-Af 35 L, BUN/Creatinine Ratio 30.6 H, Glucose 118 H, Calcium 8.3 11/17/24 06:21: POC Glucose 110 H 11/17/24 11:57: POC Glucose 109 H Physical Exam Narrative General: Drowsy, Oriented x3, Cooperative, No apparent distress HEENT: Atraumatic, PERRLA, EOMI, Normocephalic Oral: Moist Mucosa Neck: Supple, No JVD Lungs: Diminished, Normal air movement, No rhonchi, No wheeze, No rales Cardiovascular: Regular rate, Regular Rhythm, Normal S1, Normal S2, No murmurs Abdomen: Soft, Non Tender, Non-Distended, No Hepato-splenomegaly Extremities: No edema, Capillary Refill Less than 3 Seconds Skin: No rashes, No breakdown Musculoskeletal: No Tenderness to Palpation of Joints or Extremities Neurological: No focal neurological deficits, moves all extremities Psych/Mental Status: Flat Assessment & Plan Assessment/Plan (1) CHF exacerbation: (2) Chronic anticoagulation: PLAN: Plan 1. Acute on chronic systolic CHF exacerbation/chronic A-fib/essential HTN/SANDRA from overdiuresis ? Appreciate nephrology's assistance, renal function is improving back to baseline ? She is on 2 L nasal cannula which appears to be baseline ? Continue with her home medications ? Will monitor and make adjustments as necessary ? Continue with Eliquis 2. DM2 ? Continue with sliding scale insulin ? Accu-Cheks ACHS ? Will monitor make adjustments as necessary 3. Anxiety/depression ? Stable ? Continue with her home medications 4. GERD ? Stable ? Continue PPI 5. Oropharyngeal dysphagia ? Planning for gastroenterology evaluation and EGD today 6. UTI ? She had a UA done on November 11 that demonstrated a UTI and she was treated empirically no cultures were obtained DVT: Eliquis Charges/Coding Visit Charges Inpatient E&M: 85890 Subs Hosp L2 11/17/24 1256 <Electronically signed by Shabbir Ricks MD> Cosigner Signature (if applicable): CC: ~ Signed [facility] Work Phone: 1(472) 533-192008-11-2025 Progress note Author Funmi Mcgrath [facility] Note Date/Time November 17, 2024 11 :55am [facility] Medical Records Department [address] [place] [address] Progress Note - Nephrology 11/17/24 1154 MR#: [id number] Acct: [id number] Name: DARYN GUILLERMO BLANE Rep #:[id number] : 1945 78 From: Funmi burrell MD PCP: Dr. Delgado Amaro, DO Status:ADM IN Location: [place] [address] Subjective Subjective no new complaints Objective Data Objective Data Vital Signs: Vital Signs Temp Pulse Resp BP Pulse Ox O2 Del Method O2 Flow Rate 97.4 F L 64 15 110/79 100 Nasal Cannula 2 11/17/24 07:41 11/17/24 07:41 11/17/24 07:41 11/17/24 07:41 11/17/24 07:41 11/17/24 09:26 11/17/24 09:26 Oxygen Flow Rate (L/min) 2 Oxygen Delivery Method Nasal Cannula Weight: 111.448 kg Body Mass Index (BMI) 39.6 Intake & Output: Intake and Output for Last 24 Hours 11/15/24 11/16/24 11/17/24 23:59 23:59 23:59 Intake Total 2767.5 / 2767.5 2700 / 2700 1000 / 1000 Output Total 1350 / 1650 875 / 1275 850 / 850 Balance 1417.5 / 1117.5 1825 / 1425 150 / 150 Lab / Micro Data 11/17/24 05:48 11/17/24 05:48 Labs: Laboratory Results - last 24 hr 11/16/24 12:04: POC Glucose 174 H 11/16/24 16:37: POC Glucose 152 H 11/16/24 22:49: POC Glucose 149 H 11/17/24 05:48: WBC 7.9, RBC 3.67 L, Hgb 9.9 L, Hct 33.2 L, MCV 90.5, MCH 27.0, MCHC 29.8 L, RDW Std Deviation 56.6 H, RDW Coeff of Josiah 17.7 H, Plt Count 93 L, MPV 10.2, Immature Gran % (Auto) 0.500, Neut % (Auto) 63.5, Lymph % (Auto) 22.6,[place] % (Auto) 10.4 H, Eos % (Auto) 2.7, Baso % (Auto) 0.3, Absolute Neuts (auto)5.0, Absolute Lymphs (auto) 1.78, Nucleated RBC % 0, Differential Comment SCANNED, Platelet Estimate MOD DEC, Sodium 137, Potassium 3.2 L, Chloride 99, Carbon Dioxide 25.8, Anion Gap 13, BUN 48 H, Creatinine 1.55 H, Estim Creat Clear Calc 39.03 L, Est GFR (MDRD) Non-Af 35 L, BUN/Creatinine Ratio 30.6 H, Glucose 118 H, Calcium 8.3 11/17/24 06:21: POC Glucose 110 H Physical Exam Narrative resting comfortably s1s2 regular b/s diminished +trace LE edema Const Orientation / Consciousness: oriented to person, oriented to place, oriented to time and lethargic Nutritional Appearance: obese HEENT normocephalic Neck no lymphadenopathy Resp no use of accessory muscles Auscultation: wheezes and diminished lung sounds Cardio regular rate and no rub GI non-tender and non-distended Auscultation: normoactive bowel sounds Extremity Extremity Narrative: Both feet are cyanotic, cool to touch Skin General Skin Exam: petechiae Neuro Sensorium / Orientation: lethargic Psych cooperative Memory / Cognition: cognition impaired Assessment & Plan Assessment/Plan (1) Hyperkalemia: PLAN: resolved, K 3.4mmol/L today (2) Acidosis, metabolic: PLAN: compensated with serum bicarb of 30 (3) Acute renal insufficiency: PLAN: Acute renal failure with low fractional excretion of sodium in the settingof overdiuresis, heart failure, liver failure. Renal hypoperfusion. cr is better today 11/17/24 1155 <Electronically signed by Funmi Mcgrath MD> Curtis Signature (if applicable): CC: ~ Signed [facility] Work Phone: 1(356) 193-509408-11-2025 Consult note [facility] Medical Records Department [address] [place] [address] Anesthesia Postop Eval I 11/17/24 1353 MR#: [id number] Acct: [id number] Name: DARYN GUILLERMO BLANE Rep #:[id number] 4 : 1945 78 From: Jones Greer PCP: Dr. Delgado Amaro, DO Status:ADM IN Y Race: C Location: [place] [address] 05-10 Anesthesia: Postop Eval I Current Vital Signs Temperature: 97.2 F Pulse Rate: 79 Blood Pressure: 114/83 Respiratory Rate: 16 Pulse Ox: 99 Oxygen Delivery Method: Room Air Assessment Airway patent: Yes Spontaneous unlabored respirations: Yes Mental status: Asleep nausea: No Vomiting: No Anesthesia Complication: No Fluid Hydration Crystalloid volume administer (ml): 200 Total IV fluid infused: 200 Progress Note Anesthesia document: Postop Eval 1 completed: Yes 11/17/24 1354 > Date _ Jones Acevedo Signature: Date CC: ~ Signed [facility]08-11-2025 Procedure note [facility] Medical Records Department [address] [place] [address] EGD Report MR#: [id number] Acct: [id number] Name: DARYN GUILLERMO Rep #:[id number] 5 : 1945 78 From: Jacinto Munoz DO PCP: Dr. Delgado Amaro DO Status:ADM IN Patient Name: Daryn Guillermo Procedure Date: 11/17/2024 1:21 PM Date of : 1945 Age: 78 Procedure: Upper GI endoscopy Indications: Dysphagia Providers: Jacinto Munoz DO Medicines: Monitored Anesthesia Care Patient Profile: This is a 78 year old female. Refer to note in patient chart for documentation of history and physical. Patient has symptoms of dysphagia with both liquids and solids. Complications: No immediate complications. Estimated blood loss: Minimal. Procedure: Pre-Anesthesia Assessment: - Prior to the procedure, a History and Physical was performed, and patient medications and allergies were reviewed. The patient is competent. The risks and benefits of the procedure and the sedation options and risks were discussed with the patient. All questions were answered and informed consent was obtained. Patient identification and proposed procedure were verified by the physician. Mental Status Examination: normal. Airway Examination: normal oropharyngeal airway and neck mobility. Prophylactic Antibiotics: The patient does not require prophylactic antibiotics. Prior Anticoagulants: The patient has taken no anticoagulant or antiplatelet agents except for NSAID medication. ASA Grade Assessment: II - A patient [...] and oxygen saturations were monitored continuously. The gastroscope was introduced through the mouth, and advanced to the second part of duodenum. The upper GI endoscopy was accomplished without difficulty. The patient tolerated the procedure well. Scope In: 1:35:07 PM Scope Out: 1:39:36 PM Total Procedure Duration Time 0 hours 4 minutes 29 seconds Findings: Moderately severe esophagitis with no bleeding was found. Biopsies were taken with a cold forceps for histology. Verification of patient identification for the specimen was done. Estimated blood loss: none. Abnormal motility was noted in the esophagus. The cricopharyngeus was abnormal. There is a decrease in motility of the esophageal body. The distal esophagus/lower esophageal sphincter is spastic, but gives up passage to the endoscope. Primary peristaltic waves are noted. A guidewire was placed and the scope was withdrawn. Dilation was performed with a Savary dilator with no resistance at 51 Fr. The dilation site was examined and showed moderate mucosal disruption. Diffuse mild inflammation characterized by erythema was found at the pylorus. No gross lesions were noted in the second portion of the duodenum. Impression: - Moderately severe non-erosive esophagitis with no bleeding. Biopsied. - Abnormal esophageal motility. Dilated. - Bile gastritis. - No gross lesions in the second portion of the duodenum. Recommendation: - [facility]. - Advance diet as tolerated. - Continue present medications. Procedure Code(s): --- Professional --- 00623, Esophagogastroduodenoscopy, flexible, transoral; with insertion of guide wire followed by passage of dilator(s) through esophagus over guide wire 52655, 59,51, Esophagogastroduodenoscopy, flexible, transoral; with biopsy, single or multiple CPT copyright 2021 [employer]. All rights reserved. The codes documented in this report are preliminary and upon senior vice president & general counsel review may be revised to meet current compliance requirements. Jacinto Munoz DO 11/17/2024 1:46:00 PM This report has been signed electronically. Number of Addenda: 0 Note Initiated On: 11/17/2024 1:21 PM 11/17/24 1346 Date _ Jacinto Friend DO Cosigner Signature: Date (if indicated) CC: Dr. Delgado Amaro DO; Jacinto Munoz DO ~ Date Dictated: 11/17/24 1321 Date Transcribed: Lpn Or Medical Assistant: RF Signed [facility]08-11-2025 Procedure note [facility] Medical Records Department [address] [place] [address] Provation Physician Letter MR#: [id number] Acct: [id number] Name: DARYN GUILLERMO BLANE Rep #:[id number] : 1945 78 From: Jacinto Munoz DO PCP: Dr. Delgado Amaro DO Status:ADM IN 11/17/2024 Delgado Amaro Do Re : Upper GI endoscopy procedure for Daryn Guillermo Dear Dr. Amaro This procedure was performed on Sunday, November 17, 2024. My impressions and recommendations are as follows: Impressions : - Moderately severe non-erosive esophagitis with no bleeding. Biopsied. - Abnormal esophageal motility. Dilated. - Bile gastritis. - No gross lesions in the second portion of the duodenum. Recommendations : - [facility]. - Advance diet as tolerated. - Continue present medications. My findings are described in the full procedure note, which is enclosed. If I can be of further assistance, please feel free to contact me at . Sincerely, Jacinto Munoz DO 11/17/2024 1:46:00 PM This report has been signed electronically. 11/17/24 1346 Date _ Jacinto Munoz DO Cosigner Signature: Date (if indicated) CC: SHAILESH Rowland; Dr. Edmundo Monge, ; Dr. Shabbir Ricks MD; Dr. Emily Cummings MD; Dr. Delgado Amaro DO ~ Date Dictated: 11/17/24 1321 Date Transcribed: Lpn Or Medical Assistant: ADAMA Signed [facility]08-11-2025 Consult note [facility] Medical Records Department [address] [place] [address] Pre-Anesthesia Evaluation 11/17/24 1311 MR#: [id number] Acct: [id number] Name: DARYN GUILLERMO Rep #:[id number] 4 : 1945 78 From: Manuel Campuzano MD PCP: Dr. Delgado Amaro DO Status:ADM IN Y Race: C Location: [place] [address] 2-1 ASA Classification* ASA Classification ASA Classification: 3 [...] MAC History Source History Obtained from:: Patient and Chart Anesthesia Focused Assessment* Temperature: 97.7 F Pulse Rate: 73 Blood Pressure: 95/42 Respiratory Rate: 12 Pulse Ox: 100 Oxygen Delivery Method: Nasal Cannula Oxygen Flow Rate (L/min): 2 Airway Assessment Mouth opens: >3 cm Mallampati Score: III Teeth Condition: Dentures (Patient has upper dentures which are currently out.) and Missing (Patient is edentulous on the bottom.) Neck Range of motion (ROM): Limited ROM (Severe Restriction) Labs Anesthesia Preop lab: CBC WBC 7.9 K/mm3 (4.4-11.0) 11/17/24 05:48 11/17/24 RBC 3.67 M/mm3 (4.2-5.4) L 11/17/24 05:48 11/17/24 Hgb 9.9 g/dL (12.0-15.0) L 11/17/24 05:48 11/17/24 Hct 33.2 % (37-47) L 11/17/24 05:48 11/17/24 Plt Count 93 K/mm3 (150-450) L 11/17/24 05:48 11/17/24 CHEMISTRY Potassium 3.2 mmol/L (3.3-5.1) L 11/17/24 05:48 11/17/24 Sodium 137 mmol/L (133-145) 11/17/24 05:48 11/17/24 Magnesium 2.1 mg/dL (1.5-2.2) 11/10/24 05:55 11/10/24 Phosphorus 3.4 mg/dL (2.5-4.9) 01/01/24 04:42 01/01/24 BUN 48 mg/dL (4-19) H 11/17/24 05:48 11/17/24 Creatinine 1.55 mg/dL (0.70-1.20) H 11/17/24 05:48 Glucose 118 mg/dL (70-99) H 11/17/24 05:48 11/17/24 POC Glucose 109 mg/dL (74-106) H 11/17/24 11:57 11/17/24 TSH 1.650 uIU/mL (0.358-3.740) 01/01/24 04:42 12/09 07/31 COAG PT 20.9 SECONDS (11.7-14.9) H 12/31/23 17:57 12/09 06/30 Pre-Assessment Diagnosis/Proposed Procedure Planned Operative Procedure(s): Esophagogastroduodenoscopy Anesthesia History Anesthesia History - r d engineer: Anesthesia History - r d engineer Hx Hospitalization Yes: [facility] 10/21/24 08:35 Any Problems With Anesthesia No 10/21/24 08:35 Cholinesterase deficiency No 10/21/24 08:35 You/Your Family Experience No 10/21/24 08:35 fever (hyperthermia) with Relationship Recent Exposure to Contagious No 10/28/24 10:53 Disease Does patient have nerve No 10/21/24 08:35 stimulator Patient instructed to have device shut off --Does patient have Pacemaker No 11/17/24 04:03 or ICD? When Was Last Pacemaker Check QUESTION #4 FULL TEXT: You/Your Family Experience fever (hyperthermia) with Anesthesia Last Oral Intake Last Oral intake: Last Oral Intake NPO since 00:01 11/17/24 04:03 Meds taken in AM with sips of water? Meds patient instructed to take am of surgery PONV PONV - r d engineer: PONV - r d engineer Female HX of Motion Sickness HX of N/V After Surgery Non-Smoker Duration of Surgery greater than 60 minutes Number of Risk Factors PONV Score Height & Weight Height & Weight: Anesthesia: Height & Weight Height 5 ft 6 in 11/17/24 04:03 Weight: 111.448 kg 11/17/24 04:03 Body Mass Index (BMI) 39.6 11/17/24 04:03 Respiratory Assessment Respiratory Assessment - r d engineer: Respiratory Tract Infection Hx - r d engineer Hx Respiratory Tract Infection No 10/21/24 08:35 Any additional information?: Yes Hx Respiratory Tract Infection: Yes History of Anesthesia Respiratory Infection details: Patient admitted with possible aspiration pneumonia. Patient is currently on nasal cannula oxygen. Not feeling any shortness of breath. STOP Sleep Apnea STOP Sleep Apnea - r d engineer: STOP Sleep Apnea - r d engineer Hx Hypertension Yes 11/09/24 12:59 Hx Sleep Apnea No 11/09/24 09:08 CPAP BIPAP Do you snore loudly (louder No 11/09/24 09:08 than talking or can be heard Do you often feel tired/ Yes 11/09/24 09:08 fatigued/ sleepy during daytime? Has anyone observed you stop No 11/09/24 09:08 breathing during sleep? STOP Results Positive 11/09/24 09:08 QUESTION #5 FULL TEXT : Do you snore loudly (louder than talking or can be heard through closeddoors)? 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 Specify any problems Hx of Preganancy in last 3 No 11/09/24 09:08 Months Nurse Filling Out Transfusion [id number] 11/09/24 09:08 & Questions: Date: 11/09/24 11/09/24 09:08 Time: 09:15 11/09/24 09:08 Patient unable to answer at this time (ie. 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 INHALATION 2.5 mg Q2H PRN PRN Administration SOB &/OR WHEEZING Apixaban 5 mg 11/09/24 10:00 11/17/24 11:03 Apixaban 5 Mg Tablet PO Not Given BID SEVEN Benzonatate 100 mg 11/09/24 08:25 Benzonatate 100 Mg Capsule PO TID PRN cough Buspirone HCl 5 mg 11/09/24 10:00 11/16/24 22:51 Buspirone 5 Mg Tablet PO 5 mg BID SEVEN Administration Carvedilol 6.25 mg 11/11/24 17:00 11/17/24 12:02 Carvedilol 6.25 Mg Tablet PO 6.25 mg BIDCM SEVEN Administration Protocol Cyclobenzaprine HCl 5 mg 11/09/24 14:00 11/17/24 06:23 Cyclobenzaprine Hcl 5 Mg Tablet PO 5 mg TID SEVEN Administration Docusate Sodium 100 mg 11/09/24 10:00 11/17/24 11:04 Docusate Sodium 100 Mg Capsule PO Not Given BID SEVEN Ferrous Sulfate 325 mg 11/09/24 12:00 11/17/24 11:05 Ferrous Sulfate 325 Mg Tablet PO Not Given DAILY@1200 SEVEN Glucagon 1 mg 11/09/24 08:25 Glucagon 1 Mg/Ml Syringe IM X1 PRN HYPOGLYCEMIA Protocol Dextrose 250 mls @ 0 mls/hr 11/09/24 08:25 Dextrose 10%-Water IV .Q0M PRN HYPOGLYCEMIA Protocol As Directed Sodium Chloride 250 mls @ 15 mls/hr 11/10/24 11:05 IV .[id number] PRN Saline Flush Sodium Chloride 250 mls @ 15 mls/hr 11/10/24 11:05 IV .[id number] PRN Additional IVPB Infusion Sodium Chloride 1,000 mls @ 75 mls/hr 11/14/24 11:35 11/17/24 12:29 IV 75 mls/hr .[id number] SEVEN Infusion Insulin Glargine 4 unit 11/09/24 10:00 11/17/24 11:05 Insulin Glargine-Yfgn 100 Unit/Ml Pen SC Not Given DAILY SEVEN Insulin Human Lispro 0 unit 11/09/24 11:00 11/17/24 06:23 Insulin Lispro 100 Unit/Ml Insuln.Pen SC Not Given ACHS [facility] Protocol Melatonin 6 mg 11/09/24 22:00 11/16/24 22:51 Melatonin 3 Mg Tablet PO Not Given QHS SEVEN Nystatin 1 applic 11/10/24 10:00 11/16/24 22:52 Nystatin Powder 15gm Bottle TOPICAL 1 applic BID [facility] Administration Protocol Ondansetron HCl 4 mg 11/09/24 08:25 11/10/24 19:25 Ondansetron 4 Mg/2 Ml Vial IV 4 mg Q8H PRN PRN Administration NAUSEA/VOMITING Pantoprazole Sodium 40 mg 11/09/24 10:00 11/17/24 11:05 Pantoprazole Sodium 40 Mg Tablet PO Not Given DAILY SEVEN Polyethylene Glycol 17 gm 11/09/24 10:00 11/17/24 11:05 Polyethylene Glycol 3350 17 Gm Packet PO Not Given QODAY SEVEN Senna/Docusate Sodium 2 tablet 11/09/24 08:25 Senna/Docusate Sodium 1 Tablet PO BID PRN PRN Constipation Sodium Chloride 10 - 40 ml 11/10/24 11:05 11/12/24 15:14 0.9% Saline Lock 10 Ml Syringe IV 20 ml UD PRN Administration SALINE FLUSH Venlafaxine HCl 150 mg 11/09/24 10:00 11/16/24 09:41 Venlafaxine Xr 150 Mg Capsule PO 150 mg DAILY SEVEN Administration PFSH Medical History Post-menopausal History of ulceration Gastric reflux History of stress test History of irregular heartbeat Aortic stenosis Lives in snf Wears glasses Wears partial dentures Marijuana use [...] History iron) tablet furosemide 20 mg tablet 40 mg PO QAM 04/28/24 Unknow n History [...] / Time No Known Allergies Allergy Verified 11/09/24 04:29 Family History Mother Alzheimer dementia Breast cancer Heart disease Brother Cystic fibrosis Surgical History History of colonoscopy S/P laminectomy History of tubal ligation Hx of cholecystectomy H/O section Social History Smoking Status: Never smoker alcohol intake: never Review of Systems (Anesthesia) ROS Narrative System reviewed and no additional complaints, except as documented. 11/17/24 1329 leni REHMAN> Date _ Manuel Campuzano MD Cosigner Signature: Date CC: ~ Signed [facility]08-11-2025 Consult note [facility] Medical Records Department [address] [place] [address] Consultation - GI 11/17/24 1313 MR#: [id number] Acct: [id number] Name: DARYN GUILLERMO Rep #:[id number] : 1945 78 From: Jacinto Munoz DO PCP: Dr. Delgado Amaro DO Status:ADM IN Location: [place] [address] HPI Consult Data Date of Consult: 11/17/24 HPI Narrative Reason for Consultation: Dysphagia HPI Narrative: DARYN GUILLERMO, is a 78-year-old female history of heart failure with reduced ejection fraction, diabetes, A-fib on Eliquis, COPD, GERD, depression and anxiety [facility] to increasing lower extremity swelling, weight gain, orthopnea and worsening dyspnea. She wasdiagnosed with CHF exacerbation. During her stay she was noted to have worsening swallowing with solids. She does have history gastroesophageal refluxdisease. I was consulted for esophageal dysphagia. She denies any odynophagia. She denies any chest pain. She was short of breathon admission but thatis improved. [facility] Medical History Post-menopausal History of ulceration Gastric reflux History of stress test History of irregular heartbeat Aortic stenosis Lives in snf Wears glasses Wears partial dentures Marijuana use [...] History iron) tablet furosemide 20 mg tablet 40 mg PO QAM 04/28/24 Unknow n History [...] / Time No Known Allergies Allergy Verified 11/09/24 04:29 Family History Mother Alzheimer dementia Breast cancer [...] rectal bleeding, tenesmus, vomiting or weight changes Physical Exam Const alert, oriented x3, no apparent distress and healthy appearing General Appearance: cooperative GI normal to inspection, nondistended, normoactive bowel sounds, soft to palpation,non-tender and non-distended Percussion: normal to percussion Rectal Exam: deferred Lab / Micro Data 11/17/24 05:48 11/17/24 05:48 Labs: Laboratory Results - last 24 hr 11/16/24 16:37: POC Glucose 152 H 11/16/24 22:49: POC Glucose 149 H 11/17/24 05:48: WBC 7.9, RBC 3.67 L, Hgb 9.9 L, Hct 33.2 L, MCV 90.5, MCH 27.0, MCHC 29.8 L, RDW Std Deviation 56.6 H, RDW Coeff of Josiah 17.7 H, Plt Count 93 L, MPV 10.2, Immature Gran % (Auto) 0.500,Neut % (Auto) 63.5, Lymph % (Auto) 22.6,[place] % (Auto) 10.4 H, Eos % (Auto) 2.7, Baso % (Auto) 0.3, Absolute Neuts (auto)5.0, Absolute Lymphs (auto) 1.78, Nucleated RBC % 0, Differential Comment SCANNED, Platelet Estimate MOD DEC, Sodium 137, Potassium 3.2 L, Chloride 99, Carbon Dioxide 25.8, Anion Gap 13, BUN 48 H, Creatinine 1.55 H, Estim Creat Clear Calc 39.03 L, Est GFR (MDRD) Non-Af 35 L, BUN/Creatinine Ratio 30.6 H, Glucose 118 H, Calcium 8.3 11/17/24 06:21: POC Glucose 110 H 11/17/24 11:57: POC Glucose 109 H Assessment & Plan Assessment/Plan (1) Dysphagia: PLAN: Patient will undergo an upper endoscopy to evaluate upper GI tract. She was explained alternatives, risk and benefits include not withstanding bleeding,infection, subs, perforation, need for charge and . She will have an ASA of 3. Charges/Coding Visit Charges Inpatient E&M: 71207 Init Hosp L2 11/17/24 1315 Cosigner Signature (if applicable): CC: Dr. Delgado Amaro, DO~ Signed [facility]08-11-2025 Progress note [facility] Medical Records Department [address] [place] [address] Progress Note - Hospitalist 11/17/24 1243 MR#: [id number] Acct: [id number] Name: DARYN GUILLERMO Rep #:[id number] 3 : 1945 78 From: Shabbir loredo MD PCP: Dr. Delgado Amaro, DO Status:ADM IN Location: [place] [address] Subjective Subjective Resting comfortably, maintaining her oxygen saturations on 2 L nasal cannula Objective Data Objective Data Vital Signs: Vital Signs Temp Pulse Resp BP Pulse Ox O2 Del Method O2 Flow Rate 97.7 F L 73 12 95/42 L 100 Nasal Cannula 2 11/17/24 11:58 11/17/24 11:58 11/17/24 11:58 11/17/24 11:58 11/17/24 11:58 11/17/24 11:58 11/17/24 11:58 Oxygen Flow Rate (L/min) 2 Oxygen Delivery Method Nasal Cannula Weight: 245 lb 11.2 oz Body Mass Index (BMI) 39.6 Intake & Output: Intake and Output for Last 24 Hours 11/16/24 11/17/24 11/18/24 03:59 03:59 03:59 Intake Total 2850 / 2850 1700 / 1700 1456.25 / 1456.25 Output Total 1650 / 1650 975 / 975 625 / 625 Balance 1200 / 1200 725 / 725 831.25 / 831.25 Lab / Micro Data 11/17/24 05:48 11/17/24 05:48 Labs: Laboratory Results - last 24 hr 11/16/24 16:37: POC Glucose 152 H 11/16/24 22:49: POC Glucose 149 H 11/17/24 05:48: WBC 7.9, RBC 3.67 L, Hgb 9.9 L, Hct 33.2 L, MCV 90.5, MCH 27.0, MCHC 29.8 L, RDW Std Deviation 56.6 H, RDW Coeff of Josiah 17.7 H, Plt Count 93 L, MPV 10.2, Immature Gran % (Auto) 0.500,Neut % (Auto) 63.5, Lymph % (Auto) 22.6,[place] % (Auto) 10.4 H, Eos % (Auto) 2.7, Baso % (Auto) 0.3, Absolute Neuts (auto)5.0, Absolute Lymphs (auto) 1.78, Nucleated RBC % 0, Differential Comment SCANNED, Platelet Estimate MOD DEC, Sodium 137, Potassium 3.2 L, Chloride 99, Carbon Dioxide 25.8, Anion Gap 13, BUN 48 H, Creatinine 1.55 H, Estim Creat Clear Calc 39.03 L, Est GFR (MDRD) Non-Af 35 L, BUN/Creatinine Ratio 30.6 H, Glucose 118 H, Calcium 8.3 11/17/24 06:21: POC Glucose 110 H 11/17/24 11:57: POC Glucose 109 H Physical Exam Narrative General: Drowsy, Oriented x3, Cooperative, No apparent distress HEENT: Atraumatic, PERRLA, EOMI, Normocephalic Oral: Moist Mucosa Neck: Supple, No JVD Lungs: Diminished, Normal air movement, No rhonchi, No wheeze, No rales Cardiovascular: Regular rate, Regular Rhythm, Normal S1, Normal S2, No murmurs Abdomen: Soft, Non Tender, Non-Distended, No Hepato-splenomegaly Extremities: No edema, Capillary Refill Less than 3 Seconds Skin: No rashes, No breakdown Musculoskeletal: No Tenderness to Palpation of Joints or Extremities Neurological: No focal neurological deficits, moves all extremities Psych/Mental Status: Flat Assessment & Plan Assessment/Plan (1) CHF exacerbation: (2) Chronic anticoagulation: PLAN: Plan 1. Acute on chronic systolic CHF exacerbation/chronic A-fib/essential HTN/SANDRA from overdiuresis ? Appreciate nephrology's assistance, renal function is improving back to baseline ? She is on 2 L nasal cannula which appears to be baseline ? Continue with her home medications ? Will monitor and make adjustments as necessary ? Continue with Eliquis 2. DM2 ? Continue with sliding scale insulin ? Accu-Cheks ACHS ? Will monitor make adjustments as necessary 3. Anxiety/depression ? Stable ? Continue with her home medications 4. GERD ? Stable ? Continue PPI 5. Oropharyngeal dysphagia ? Planning for gastroenterology evaluation and EGD today 6. UTI ? She had a UA done on November 11 that demonstrated a UTI and she was treated empirically no cultureswere obtained DVT: Eliquis Charges/Coding Visit Charges Inpatient E&M: 08376 Subs Hosp L2 11/17/24 1254 Cosigner Signature (if applicable): CC: ~ Signed [facility]08-11-2025 Progress note [facility] Medical Records Department [address] [place] [address] Progress Note - Nephrology 11/17/24 1154 MR#: [id number] Acct: [id number] Name: DARYN GUILLERMO Rep #:[id number] 8 : 1945 78 From: Funmi burrell MD PCP: Dr. Delgado Amaro, DO Status:ADM IN Location: [place] [address] Subjective Subjective no new complaints Objective Data Objective Data Vital Signs: Vital Signs Temp Pulse Resp BP Pulse Ox O2 Del Method O2 Flow Rate 97.4 F L 64 15 110/79 100 Nasal Cannula 2 11/17/24 07:41 11/17/24 07:41 11/17/24 07:41 11/17/24 07:41 11/17/24 07:41 11/17/24 09:26 11/17/24 09:26 Oxygen Flow Rate (L/min) 2 Oxygen Delivery Method Nasal Cannula Weight: 111.448 kg Body Mass Index (BMI) 39.6 Intake & Output: Intake and Output for Last 24 Hours 11/15/24 11/16/24 11/17/24 23:59 23:59 23:59 Intake Total 2767.5 / 2767.5 2700 / 2700 1000 / 1000 Output Total 1350 / 1650 875 / 1275 850 / 850 Balance 1417.5 / 1117.5 1825 / 1425 150 / 150 Lab / Micro Data 11/17/24 05:48 11/17/24 05:48 Labs: Laboratory Results - last 24 hr 11/16/24 12:04: POC Glucose 174 H 11/16/24 16:37: POC Glucose 152 H 11/16/24 22:49: POC Glucose 149 H 11/17/24 05:48: WBC 7.9, RBC 3.67 L, Hgb 9.9 L, Hct 33.2 L, MCV 90.5, MCH 27.0, MCHC 29.8 L, RDW Std Deviation 56.6 H, RDW Coeff of Josiah 17.7 H, Plt Count 93 L, MPV 10.2, Immature Gran % (Auto) 0.500,Neut % (Auto) 63.5, Lymph % (Auto) 22.6,[place] % (Auto) 10.4 H, Eos % (Auto) 2.7, Baso % (Auto) 0.3, Absolute Neuts (auto)5.0, Absolute Lymphs (auto) 1.78, Nucleated RBC % 0, Differential Comment SCANNED, Platelet Estimate MOD DEC, Sodium 137, Potassium 3.2 L, Chloride 99, Carbon Dioxide 25.8, Anion Gap 13, BUN 48 H, Creatinine 1.55 H, Estim Creat Clear Calc 39.03 L, Est GFR (MDRD) Non-Af 35 L, BUN/Creatinine Ratio 30.6 H, Glucose 118 H, Calcium 8.3 11/17/24 06:21: POC Glucose 110 H Physical Exam Narrative resting comfortably s1s2 regular b/s diminished +trace LE edema Const Orientation / Consciousness: oriented to person, oriented to place, oriented to time and lethargic Nutritional Appearance: obese HEENT normocephalic Neck no lymphadenopathy Resp no use of accessory muscles Auscultation: wheezes and diminished lung sounds Cardio regular rate and no rub GI non-tender and non-distended Auscultation: normoactive bowel sounds Extremity Extremity Narrative: Both feet are cyanotic, cool to touch Skin General Skin Exam: petechiae Neuro Sensorium / Orientation: lethargic Psych cooperative Memory / Cognition: cognition impaired Assessment & Plan Assessment/Plan (1) Hyperkalemia: PLAN: resolved, K 3.4mmol/L today (2) Acidosis, metabolic: PLAN: compensated with serum bicarb of 30 (3) Acute renal insufficiency: PLAN: Acute renal failure with low fractional excretion of sodium in the settingof overdiuresis, heart failure, liver failure. Renal hypoperfusion. cr is better today 11/17/24 1155 Cosigner Signature (if applicable): CC: ~ Signed [facility]08-10-2025 Progress note Author Edmundo Monge [facility] Note Date/Time November 16, 2024 4: 47pm [facility] Medical Records Department [address] [place] [address] Progress Note - Hospitalist 11/16/24 1644 MR#: [id number] Acct: [id number] Name: DARYN GUILLERMO Rep #:[id number] 8 : 1945 78 From: Edmundo Monge DO PCP: Dr. Delgado Amaro, DO Status:ADM IN Location: [place] [address] Reason for Visit Chief Complaint: Lower extremity swelling and shortness of breath Subjective Subjective Patient was seen and examined today, she is alert and appropriate. Renal functions are improved. Patient is due to have an EGD tomorrow for a further workup for her dysphagia Objective Data Objective Data Vital Signs: Vital Signs Temp Pulse Resp BP Pulse Ox O2 Del Method O2 Flow Rate 97.3 F L 71 17 108/71 100 Nasal Cannula 2 11/16/24 13:56 11/16/24 13:56 11/16/24 13:56 11/16/24 13:56 11/16/24 13:56 11/16/24 14:00 11/16/24 14:00 Oxygen Flow Rate (L/min) 2 Oxygen Delivery Method Nasal Cannula Weight: 109.18 kg Body Mass Index (BMI) 38.8 Intake & Output: Intake and Output for Last 24 Hours 11/14/24 11/15/24 11/16/24 23:59 23:59 23:59 Intake Total 1276.25 / 1276.25 2767.5 / 2767.5 1300 / 1300 Output Total 370 / 370 1350 / 1650 675 / 675 Balance 906.25 / 906.25 1417.5 / 1117.5 625 / 625 Lab / Micro Data 11/14/24 07:01 11/16/24 05:29 Labs: Laboratory Results - last 24 hr 11/15/24 21:57: POC Glucose 134 H 11/16/24 05:29: Sodium 140, Potassium 3.4, Chloride 96 L, Carbon Dioxide 30.3, Anion Gap 13, BUN 56 H, Creatinine 1.93 H, Estim Creat Clear Calc 30.83 L, Est GFR (MDRD) Non-Af 27 L, BUN/Creatinine Ratio 29.0 H, Glucose 117 H, Calcium 8.3 11/16/24 06:06: POC Glucose 118 H 11/16/24 12:04: POC Glucose 174 H Physical Exam Narrative alert and no apparent distress General Appearance: cooperative, well kempt and well developed Orientation / Consciousness: awake, oriented to person and oriented to place HEENT normocephalic, head/scalp atraumatic and moist oral mucous membranes Eyes PERRL, EOMs intact bilaterally and conjunctivae normal Neck supple, no JVD, thyroid normal and no carotid bruits General: trachea midline Resp normal respiratory effort, no retractions, no use of accessory muscles and clearto auscultation bilaterally Auscultation: Negative for rales, rhonchi or wheezes Cardio S1 normal heart sound, S2 normal heart sound, no rub and no gallops Cardio Narrative: Heart rate and rhythm is irregular GI normal to inspection, nondistended, normoactive bowel sounds, soft to palpation,non-tender and non-distended Extremity no clubbing, cyanosis or edema Skin no rashes or lesions noted General Skin Exam: no breakdown Neuro CN's II-XII intact bilaterally, moves all extremities, no focal motor deficits and no sensory deficits noted Sensorium / Orientation: awake, alert, oriented to person and oriented to place Speech: speech normal Psych affect normal Assessment & Plan Assessment/Plan (1) CHF exacerbation: (2) Chronic anticoagulation: PLAN: Plan 1. Acute exacerbation of chronic congestive heart failure with reduced ejectionfraction-patient is currently off Lasix, nephrology is participating in her careand writing for IV fluids #2 acute kidney injury-patient's creatinine today was 1.93, BMP will be monitored, nephrology participating in her care #3 chronic atrial fibrillation-patient will remain on her current medications including anticoagulation with Eliquis and rate limiting agents #4 type 2 diabetes-blood sugars will be monitored, sliding scale insulin be administered as needed #5 Hypokalemia-corrected at this time #6 oropharyngeal dysphagia-gastroenterology will see the patient tomorrow and she will undergo an EGD, speech therapy is participating in her care Total clinical time spent by myself addressing the patient's medical issues, reviewing all of her data, and collaborating with patient's care team: 35-minute Charges/Coding Visit Charges Inpatient E&M: 33991 Subs Hosp L2 11/16/24 6560 <Electronically signed by Edmundo Tereletsky DO> Cosigner Signature (if applicable): CC: ~ Signed [facility] Work Phone: 1(490) 316-428108-10-2025 Progress note [facility] Medical Records Department [address] [place] [address] Progress Note - Hospitalist 11/16/24 1644 MR#: [id number] Acct: [id number] Name: DARYN GUILLERMO Rep #:[id number] : 1945 78 From: Edmundo Monge DO PCP: Dr. Delgado Amaro, DO Status:ADM IN Location: [place] [address] Reason for Visit Chief Complaint: Lower extremity swelling and shortness of breath Subjective Subjective Patient was seen and examined today, she is alert and appropriate. Renal functions are improved. Patient is due to have an EGD tomorrow for a further workup for her dysphagia Objective Data Objective Data Vital Signs: Vital Signs Temp Pulse Resp BP Pulse Ox O2 Del Method O2 Flow Rate 97.3 F L 71 17 108/71 100 Nasal Cannula 2 11/16/24 13:56 11/16/24 13:56 11/16/24 13:56 11/16/24 13:56 11/16/24 13:56 11/16/24 14:00 11/16/24 14:00 Oxygen Flow Rate (L/min) 2 Oxygen Delivery Method Nasal Cannula Weight: 109.18 kg Body Mass Index (BMI) 38.8 Intake & Output: Intake and Output for Last 24 Hours 11/14/24 11/15/24 11/16/24 23:59 23:59 23:59 Intake Total 1276.25 / 1276.25 2767.5 / 2767.5 1300 / 1300 Output Total 370 / 370 1350 / 1650 675 / 675 Balance 906.25 / 906.25 1417.5 / 1117.5 625 / 625 Lab / Micro Data 11/14/24 07:01 11/16/24 05:29 Labs: Laboratory Results - last 24 hr 11/15/24 21:57: POC Glucose 134 H 11/16/24 05:29: Sodium 140, Potassium 3.4, Chloride 96 L, Carbon Dioxide 30.3, Anion Gap 13, BUN 56H, Creatinine 1.93 H, Estim Creat Clear Calc 30.83 L, Est GFR (MDRD) Non-Af 27 L, BUN/Creatinine Ratio 29.0 H, Glucose 117 H, Calcium 8.3 11/16/24 06:06: POC Glucose 118 H 11/16/24 12:04: POC Glucose 174 H Physical Exam Narrative alert and no apparent distress General Appearance: cooperative, well kempt and well developed Orientation / Consciousness: awake, oriented to person and oriented to place HEENT normocephalic, head/scalp atraumatic and moist oral mucous membranes Eyes PERRL, EOMs intact bilaterally and conjunctivae normal Neck supple, no JVD, thyroid normal and no carotid bruits General: trachea midline Resp normal respiratory effort, no retractions, no use of accessory muscles and clearto auscultation bilaterally Auscultation: Negative for rales, rhonchi or wheezes Cardio S1 normal heart sound, S2 normal heart sound, no rub and no gallops Cardio Narrative: Heart rate and rhythm is irregular GI normal to inspection, nondistended, normoactive bowel sounds, soft to palpation,non-tender and non-distended Extremity no clubbing, cyanosis or edema Skin no rashes or lesions noted General Skin Exam: no breakdown Neuro CN's II-XII intact bilaterally, moves all extremities, no focal motor deficits and no sensory deficits noted Sensorium / Orientation: awake, alert, oriented to person and oriented to place Speech: speech normal Psych affect normal Assessment & Plan Assessment/Plan (1) CHF exacerbation: (2) Chronic anticoagulation: PLAN: Plan 1. Acute exacerbation of chronic congestive heart failure with reduced ejectionfraction-patient is currently off Lasix, nephrology is participating in her careand writing for IV fluids #2 acute kidney injury-patient's creatinine today was 1.93, BMP will be monitored, nephrology participating in her care #3 chronic atrial fibrillation-patient will remain on her current medications including anticoagulation with Eliquis and rate limiting agents #4 type 2 diabetes-blood sugars will be monitored, sliding scale insulin be administered as needed #5 Hypokalemia-corrected at this time #6 oropharyngeal dysphagia-gastroenterology will see the patient tomorrow and she will undergo an EGD, speech therapy is participating in her care Total clinical time spent by myself addressing the patient's medical issues, reviewing all of her data, and collaborating with patient's care team: 35-minute Charges/Coding Visit Charges Inpatient E&M: 53020 Subs Hosp L2 11/16/24 1647 Cosigner Signature (if applicable): CC: ~ Signed [facility]08-10-2025 Progress note Author Baltazar Julio [facility] Note Date/Time November 16, 2024 9: 56am [facility] Medical Records Department [address] [place] [address] Progress Note - Nephrology 11/16/24 0953 MR#: [id number] Acct: [id number] Name: DARYN GUILLERMO Rep #:[id number] : 1945 78 From: Baltazar Julio MD PCP: Dr. Delgado Amaro, DO Status:ADM IN Location: [place] [address] Subjective Subjective no acute events no new complaints remains NPO, awaiting GI evaluation on IVF Objective Data Objective Data Vital Signs: Vital Signs Temp Pulse Resp BP Pulse Ox O2 Del Method O2 Flow Rate 97.4 F L 77 18 106/83 H 100 Nasal Cannula 2 11/16/24 07:42 11/16/24 07:42 11/16/24 07:42 11/16/24 07:42 11/16/24 07:42 11/16/24 07:42 11/16/24 07:42 Oxygen Flow Rate (L/min) 2 Oxygen Delivery Method Nasal Cannula Weight: 109.18 kg Body Mass Index (BMI) 38.8 Intake & Output: Intake and Output for Last 24 Hours 11/14/24 11/15/24 11/16/24 23:59 23:59 23:59 Intake Total 1276.25 / 1276.25 2767.5 / 2767.5 1000 / 1000 Output Total 370 / 370 1350 / 1650 300 / 300 Balance 906.25 / 906.25 1417.5 / 1117.5 700 / 700 Lab / Micro Data 11/14/24 07:01 11/16/24 05:29 Labs: Laboratory Results - last 24 hr 11/15/24 11:13: POC Glucose 140 H 11/15/24 16:21: POC Glucose 135 H 11/15/24 21:57: POC Glucose 134 H 11/16/24 05:29: Sodium 140, Potassium 3.4, Chloride 96 L, Carbon Dioxide 30.3, Anion Gap 13, BUN 56 H, Creatinine 1.93 H, Estim Creat Clear Calc 30.83 L, Est GFR (MDRD) Non-Af 27 L, BUN/Creatinine Ratio 29.0 H, Glucose 117 H, Calcium 8.3 11/16/24 06:06: POC Glucose 118 H Physical Exam Narrative resting comfortably s1s2 regular b/s diminished +trace LE edema Assessment & Plan Assessment/Plan (1) Hyperkalemia: PLAN: resolved, K 3.4mmol/L today (2) Acidosis, metabolic: PLAN: compensated with serum bicarb of 30 (3) Acute renal insufficiency: PLAN: Acute renal failure with low fractional excretion of sodium in the settingof overdiuresis, heart failure, liver failure. Renal hypoperfusion. Patient ishypotensive, urine output is marginal. Nevertheless she started to make urine, and her creatinine started to improve. I am actually surprised to see such a good albumin, unless it has been given. Plan -stable with scr improving to 1.9mg/dL -ok to continue ivf for now, can discontinue once NPO is lifted -bmp in am 11/16/24 0956 <Electronically signed by Baltazar Julio MD> Cosigner Signature (if applicable): CC: ~ Signed [facility] Work Phone: 1(928) 427-536208-10-2025 Progress note [facility] Medical Records Department [address] [place] [address] Progress Note - Nephrology 11/16/24 0953 MR#: [id number] Acct: [id number] Name: DARYN GUILLERMO BLANE Rep #:[id number] : 1945 78 From: Baltazar Julio MD PCP: Dr. Delgado Amaro, DO Status:ADM IN Location: [place] [address] Subjective Subjective no acute events no new complaints remains NPO, awaiting GI evaluation on IVF Objective Data Objective Data Vital Signs: Vital Signs Temp Pulse Resp BP Pulse Ox O2 Del Method O2 Flow Rate 97.4 F L 77 18 106/83 H 100 Nasal Cannula 2 11/16/24 07:42 11/16/24 07:42 11/16/24 07:42 11/16/24 07:42 11/16/24 07:42 11/16/24 07:42 11/16/24 07:42 Oxygen Flow Rate (L/min) 2 Oxygen Delivery Method Nasal Cannula Weight: 109.18 kg Body Mass Index (BMI) 38.8 Intake & Output: Intake and Output for Last 24 Hours 11/14/24 11/15/24 11/16/24 23:59 23:59 23:59 Intake Total 1276.25 / 1276.25 2767.5 / 2767.5 1000 / 1000 Output Total 370 / 370 1350 / 1650 300 / 300 Balance 906.25 / 906.25 1417.5 / 1117.5 700 / 700 Lab / Micro Data 11/14/24 07:01 11/16/24 05:29 Labs: Laboratory Results - last 24 hr 11/15/24 11:13: POC Glucose 140 H 11/15/24 16:21: POC Glucose 135 H 11/15/24 21:57: POC Glucose 134 H 11/16/24 05:29: Sodium 140, Potassium 3.4, Chloride 96 L, Carbon Dioxide 30.3, Anion Gap 13, BUN 56H, Creatinine 1.93 H, Estim Creat Clear Calc 30.83 L, Est GFR (MDRD) Non-Af 27 L, BUN/Creatinine Ratio 29.0 H, Glucose 117 H, Calcium 8.3 11/16/24 06:06: POC Glucose 118 H Physical Exam Narrative resting comfortably s1s2 regular b/s diminished +trace LE edema Assessment & Plan Assessment/Plan (1) Hyperkalemia: PLAN: resolved, K 3.4mmol/L today (2) Acidosis, metabolic: PLAN: compensated with serum bicarb of 30 (3) Acute renal insufficiency: PLAN: Acute renal failure with low fractional excretion of sodium in the settingof overdiuresis, heart failure, liver failure. Renal hypoperfusion. Patient ishypotensive, urine output is marginal. Nevertheless she started to make urine, and her creatinine started to improve. I am actually surprisedto see such a good albumin, unless it has been given. Plan -stable with scr improving to 1.9mg/dL -ok to continue ivf for now, can discontinue once NPO is lifted -bmp in am 11/16/24 0956 Cosigner Signature (if applicable): CC: ~ Signed [facility]08-09-2025 Progress note Author Edmundo Monge [facility] Note Date/Time November 15, 2024 1:2 8pm [facility] Medical Records Department [address] [place] [address] Progress Note - Hospitalist 11/15/24 1324 MR#: [id number] Acct: [id number] Name: DARYN GUILLERMO Rep #:[id number] : 1945 78 From: Edmundo Monge DO PCP: Dr. Delgado Amaro, DO Status:ADM IN Location: [place] [address] Reason for Visit Chief Complaint: Lower extremity swelling and shortness of breath Subjective Subjective Patient was seen and examined today, it was recommended by speech therapy that she have a gastroenterology consultation, I will contact them and make her n.p.o. after midnight on Sunday for possible EGD on Sunday. Patient's creatinine is somewhat improved, she is alert and responds appropriately to simple questions Objective Data Objective Data Vital Signs: Vital Signs Temp Pulse Resp BP Pulse Ox O2 Del Method O2 Flow Rate 98.4 F 71 18 83/60 L 100 Nasal Cannula 2 11/15/24 08:16 11/15/24 08:16 11/15/24 08:16 11/15/24 08:16 11/15/24 08:16 11/15/24 09:36 11/15/24 09:36 Oxygen Flow Rate (L/min) 2 Oxygen Delivery Method Nasal Cannula Weight: 107.9 kg Body Mass Index (BMI) 38.4 Intake & Output: Intake and Output for Last 24 Hours 11/13/24 11/14/24 11/15/24 23:59 23:59 23:59 Intake Total 2263.33 / 2263.33 1276.25 / 1276.25 1017.5 / 1017.5 Output Total 370 / 370 400 / 400 Balance 2263.33 / 2263.33 906.25 / 906.25 617.5 / 617.5 Lab / Micro Data 11/14/24 07:01 11/15/24 08:02 Labs: Laboratory Results - last 24 hr 11/14/24 16:51: POC Glucose 173 H 11/14/24 22:36: POC Glucose 138 H 11/15/24 06:21: POC Glucose 150 H 11/15/24 08:02: Sodium 138, Potassium 2.9 L, Chloride 95 L, Carbon Dioxide 31.3,Anion Gap 12, BUN 64 H, Creatinine 2.49 H, Estim Creat Clear Calc 23.89 L, Est GFR (MDRD) Non-Af 20 L, BUN/Creatinine Ratio 25.6 H, Glucose 157 H, Calcium 8.0 11/15/24 11:13: POC Glucose 140 H Physical Exam Narrative alert and no apparent distress General Appearance: cooperative, well kempt and well developed Orientation / Consciousness: awake, oriented to person and oriented to place HEENT normocephalic, head/scalp atraumatic and moist oral mucous membranes Eyes PERRL, EOMs intact bilaterally and conjunctivae normal Neck supple, no JVD, thyroid normal and no carotid bruits General: trachea midline Resp normal respiratory effort, no retractions, no use of accessory muscles and clearto auscultation bilaterally Auscultation: Negative for rales, rhonchi or wheezes Cardio S1 normal heart sound, S2 normal heart sound, no rub and no gallops Cardio Narrative: Heart rate and rhythm is irregular GI normal to inspection, nondistended, normoactive bowel sounds, soft to palpation,non-tender and non-distended Extremity no clubbing, cyanosis or edema Skin no rashes or lesions noted General Skin Exam: no breakdown Neuro CN's II-XII intact bilaterally, moves all extremities, no focal motor deficits and no sensory deficits noted Sensorium / Orientation: awake, alert, oriented to person and oriented to place Speech: speech normal Psych affect normal Assessment & Plan Assessment/Plan (1) CHF exacerbation: (2) Chronic anticoagulation: PLAN: Plan 1. Acute exacerbation of chronic congestive heart failure with reduced ejectionfraction-patient is currently off Lasix, nephrology is participating in her careand writing for IV fluids #2 acute kidney injury-patient's creatinine today was 2.49, BMP will be monitored, nephrology participating in her care, patient's potassium low today #3 chronic atrial fibrillation-patient will remain on her current medications including anticoagulation with Eliquis and rate limiting agents #4 type 2 diabetes-blood sugars will be monitored, sliding scale insulin be administered as needed #5 hyperkalemia-patient will be given supplemental potassium replacement by IV #6 oropharyngeal dysphagia-I will contact GI to see if they would like her to undergo an EGD. Total clinical time spent by myself addressing the patient's medical issues, reviewing all of her data, and collaborating with patient's care team: 35-minute Charges/Coding Visit Charges Inpatient E&M: 47857 Subs Hosp L2 11/15/24 1328 <Electronically signed by Edmundo Monge DO> Cosigner Signature (if applicable): CC: ~ Signed [facility] Work Phone: 1(309) 651-523008-09-2025 Progress note [facility] Medical Records Department [address] [place] [address] Progress Note - Hospitalist 11/15/24 1324 MR#: [id number] Acct: [id number] Name: DARYN GUILLERMO Rep #:[id number] : 1945 78 From: Edmundo Monge DO PCP: Dr. Delgado Amaro, Status:ADM IN Location: [place] [address] Reason for Visit Chief Complaint: Lower extremity swelling and shortness of breath Subjective Subjective Patient was seen and examined today, it was recommended by speech therapy that she have a gastroenterology consultation, I will contact them and make her n.p.o. after midnight on Sunday for possible EGD on Sunday. Patient's creatinine is somewhat improved, she is alert and responds appropriately tosimple questions Objective Data Objective Data Vital Signs: Vital Signs Temp Pulse Resp BP Pulse Ox O2 Del Method O2 Flow Rate 98.4 F 71 18 83/60 L 100 Nasal Cannula 2 11/15/24 08:16 11/15/24 08:16 11/15/24 08:16 11/15/24 08:16 11/15/24 08:16 11/15/24 09:36 11/15/24 09:36 Oxygen Flow Rate (L/min) 2 Oxygen Delivery Method Nasal Cannula Weight: 107.9 kg Body Mass Index (BMI) 38.4 Intake & Output: Intake and Output for Last 24 Hours 11/13/24 11/14/24 11/15/24 23:59 23:59 23:59 Intake Total 2263.33 / 2263.33 1276.25 / 1276.25 1017.5 / 1017.5 Output Total 370 / 370 400 / 400 Balance 2263.33 / 2263.33 906.25 / 906.25 617.5 / 617.5 Lab / Micro Data 11/14/24 07:01 11/15/24 08:02 Labs: Laboratory Results - last 24 hr 11/14/24 16:51: POC Glucose 173 H 11/14/24 22:36: POC Glucose 138 H 11/15/24 06:21: POC Glucose 150 H 11/15/24 08:02: Sodium 138, Potassium 2.9 L, Chloride 95 L, Carbon Dioxide 31.3,Anion Gap 12, BUN 64 H, Creatinine 2.49 H, Estim Creat Clear Calc 23.89 L, Est GFR (MDRD) Non-Af 20 L, BUN/Creatinine Ratio 25.6 H, Glucose 157 H, Calcium 8.0 11/15/24 11:13: POC Glucose 140 H Physical Exam Narrative alert and no apparent distress General Appearance: cooperative, well kempt and well developed Orientation / Consciousness: awake, oriented to person and oriented to place HEENT normocephalic, head/scalp atraumatic and moist oral mucous membranes Eyes PERRL, EOMs intact bilaterally and conjunctivae normal Neck supple, no JVD, thyroid normal and no carotid bruits General: trachea midline Resp normal respiratory effort, no retractions, no use of accessory muscles and clearto auscultation bilaterally Auscultation: Negative for rales, rhonchi or wheezes Cardio S1 normal heart sound, S2 normal heart sound, no rub and no gallops Cardio Narrative: Heart rate and rhythm is irregular GI normal to inspection, nondistended, normoactive bowel sounds, soft to palpation,non-tender and non-distended Extremity no clubbing, cyanosis or edema Skin no rashes or lesions noted General Skin Exam: no breakdown Neuro CN's II-XII intact bilaterally, moves all extremities, no focal motor deficits and no sensory deficits noted Sensorium / Orientation: awake, alert, oriented to person and oriented to place Speech: speech normal Psych affect normal Assessment & Plan Assessment/Plan (1) CHF exacerbation: (2) Chronic anticoagulation: PLAN: Plan 1. Acute exacerbation of chronic congestive heart failure with reduced ejectionfraction-patient is currently off Lasix, nephrology is participating in her careand writing for IV fluids #2 acute kidney injury-patient's creatinine today was 2.49, BMP will be monitored, nephrology participating in her care, patient's potassium low today #3 chronic atrial fibrillation-patient will remain on her current medications including anticoagulation with Eliquis and rate limiting agents #4 type 2 diabetes-blood sugars will be monitored, sliding scale insulin be administered as needed #5 hyperkalemia-patient will be given supplemental potassium replacement by IV #6 oropharyngeal dysphagia-I will contact GI to see if they would like her to undergo an EGD. Total clinical time spent by myself addressing the patient's medical issues, reviewing all of her data, and collaborating with patient's care team: 35-minute Charges/Coding Visit Charges Inpatient E&M: 22631 Subs Hosp L2 11/15/24 1328 Cosigner Signature (if applicable): CC: ~ Signed [facility]08-08-2025 Progress note Author Edmundo [facility] Note Date/Time November 14, 2024 7:1 7pm [facility] Medical Records Department [address] [place] [address] Progress Note - Hospitalist 11/14/241912 MR#: [id number] Acct: [id number] Name: DARYN GUILLERMO Rep #:[id number] : 1945 78 From: Edmundo Monge DO PCP: Dr. Delgado Amaro, DO Status:ADM IN Location: [place] [address]- Reason for Visit Chief Complaint: Lower extremity swelling and shortness of breath Subjective Subjective Patient was seen and examined today, her creatinine was minimally improved, I talked with nephrology about her care. Patient's blood pressure has been running low today and I held her Coreg. Objective Data Objective Data Vital Signs: Vital Signs Temp Pulse Resp BP Pulse Ox O2 Del Method O2 Flow Rate 97.3 F L 75 18 94/82 H 96 Nasal Cannula 2 11/14/24 15:05 11/14/24 15:05 11/14/24 15:05 11/14/24 15:05 11/14/24 15:05 11/14/24 15:05 11/14/24 15:05 Oxygen Flow Rate (L/min) 2 Oxygen Delivery Method Nasal Cannula Weight: 105.6 kg Body Mass Index (BMI) 37.5 Intake & Output: Intake and Output for Last 24 Hours 11/12/24 11/13/24 11/14/24 23:59 23:59 23:59 Intake Total 460 / 460 2263.33 / 2263.33 1136.25 / 1136.25 Output Total 0 / 0 370 / 370 Balance 460 / 460 2263.33 / 2263.33 766.25 / 766.25 Lab / Micro Data 11/14/24 07:01 11/14/24 07:01 Labs: Laboratory Results - last 24 hr 11/13/24 22:31: POC Glucose 191 H 11/14/24 06:55: POC Glucose 162 H 11/14/24 07:01: WBC 8.9, RBC 3.60 L, Hgb 9.7 L, Hct 32.2 L, MCV 89.4, MCH 26.9 L, MCHC 30.1 L, RDW Std Deviation 54.4 H, RDW Coeff of Josiah 18.4 H, Plt Count 129 L, MPV 10.1, Immature Gran % (Auto) 0.700, Neut % (Auto) 70.8 H, Lymph % (Auto) 20.0, [place] % (Auto) 7.6, Eos % (Auto) 0.8, Baso % (Auto) 0.1, Absolute Neuts (auto) 6.3, Absolute Lymphs (auto) 1.79, Nucleated RBC % 0, Sodium 136, Potassium 3.6, Chloride 93 L, Carbon Dioxide 23.9, Anion Gap 20 H, BUN 70 H, Creatinine 3.26 H, Estim Creat Clear Calc 18.04 L, Est GFR (MDRD) Non-Af 14 L, BUN/Creatinine Ratio 21.3 H, Glucose 154 H, Calcium 7.8, Total Bilirubin 0.87, AST 1001 H, ALT 778 H, Alkaline Phosphatase 230 H, Total Protein 5.8 L, Albumin 3.2 L, Globulin 2.6, Albumin/Globulin Ratio 1.2 11/14/24 08:10: Ur Random Sodium < 20, Urine Creatinine 98.40 11/14/24 11:21: POC Glucose 161 H 11/14/24 16:51: POC Glucose 173 H Physical Exam Narrative alert and no apparent distress General Appearance: cooperative, well kempt and well developed Orientation / Consciousness: awake, oriented to person and oriented to place HEENT normocephalic, head/scalp atraumatic and moist oral mucous membranes Eyes PERRL, EOMs intact bilaterally and conjunctivae normal Neck supple, no JVD, thyroid normal and no carotid bruits General: trachea midline Resp normal respiratory effort, no retractions, no use of accessory muscles and clearto auscultation bilaterally Auscultation: Negative for rales, rhonchi or wheezes Cardio S1 normal heart sound, S2 normal heart sound, no rub and no gallops Cardio Narrative: Heart rate and rhythm is irregular GI normal to inspection, nondistended, normoactive bowel sounds, soft to palpation,non-tender and non-distended Extremity no clubbing, cyanosis or edema Skin no rashes or lesions noted General Skin Exam: no breakdown Neuro CN's II-XII intact bilaterally, moves all extremities, no focal motor deficits and no sensory deficits noted Sensorium / Orientation: awake, alert, oriented to person and oriented to place Speech: speech normal Psych affect normal Assessment & Plan Assessment/Plan (1) Chronic anticoagulation: (2) CHF exacerbation: PLAN: Plan 1. Acute exacerbation of chronic congestive heart failure with reduced ejectionfraction-patient is currently off Lasix, nephrology is participating in her careand writing for IV fluids #2 acute kidney injury-patient's creatinine today was 3.26, BMP will be monitored, nephrology participating in her care, patient's potassium was normal today #3 chronic atrial fibrillation-patient will remain on her current medications including anticoagulation with Eliquis and rate limiting agents #4 type 2 diabetes-blood sugars will be monitored, sliding scale insulin be administered as needed #5 hyperkalemia-resolved at this time, BMP will be monitored Total clinical time spent by myself addressing the patient's medical issues, reviewing all of her data, and collaborating with patient's care team: 35-minute Charges/Coding Visit Charges Inpatient E&M: 16396 Subs Hosp L2 11/14/241916 <Electronically signed by Edmundo Monge DO> Cosigner Signature (if applicable): CC: ~ Signed [facility] Work Phone: 1(868) 991-406508-08-2025 Progress note [facility] Medical Records Department [address] [place] [address] Progress Note - Hospitalist 11/14/241912 MR#: [id number] Acct: [id number] Name: DARYN GUILLERMO Rep #:[id number] : 1945 78 From: Edmundo Monge DO PCP: Dr. Delgado Amaro, DO Status:ADM IN Location: [place] [address] Reason for Visit Chief Complaint: Lower extremity swelling and shortness of breath Subjective Subjective Patient was seen and examined today, her creatinine was minimally improved, I talked with nephrology about her care. Patient's blood pressure has been running low today and I held her Coreg. Objective Data Objective Data Vital Signs: Vital Signs Temp Pulse Resp BP Pulse Ox O2 Del Method O2 Flow Rate 97.3 F L 75 18 94/82 H 96 Nasal Cannula 2 11/14/24 15:05 11/14/24 15:05 11/14/24 15:05 11/14/24 15:05 11/14/24 15:05 11/14/24 15:05 11/14/24 15:05 Oxygen Flow Rate (L/min) 2 Oxygen Delivery Method Nasal Cannula Weight: 105.6 kg Body Mass Index (BMI) 37.5 Intake & Output: Intake and Output for Last 24 Hours 11/12/24 11/13/24 11/14/24 23:59 23:59 23:59 Intake Total 460 / 460 2263.33 / 2263.33 1136.25 / 1136.25 Output Total 0 / 0 370 / 370 Balance 460 / 460 2263.33 / 2263.33 766.25 / 766.25 Lab / Micro Data 11/14/24 07:01 11/14/24 07:01 Labs: Laboratory Results - last 24 hr 11/13/24 22:31: POC Glucose 191 H 11/14/24 06:55: POC Glucose 162 H 11/14/24 07:01: WBC 8.9, RBC 3.60 L, Hgb 9.7 L, Hct 32.2 L, MCV 89.4, MCH 26.9 L, MCHC 30.1 L, RDW Std Deviation 54.4 H, RDW Coeff of Josiah 18.4 H, Plt Count 129 L, MPV 10.1, Immature Gran % (Auto) 0.700, Neut % (Auto) 70.8 H, Lymph % (Auto) 20.0, [place] % (Auto) 7.6, Eos % (Auto) 0.8, Baso % (Auto) 0.1, Absolute Neuts (auto) 6.3, Absolute Lymphs (auto) 1.79, Nucleated RBC % 0, Sodium 136, Potassium 3.6, Chloride 93 L, Carbon Dioxide 23.9, Anion Gap 20 H, BUN 70 H, Creatinine 3.26 H, Estim Creat Clear Calc 18.04 L, Est GFR (MDRD) Non-Af 14 L, BUN/Creatinine Ratio 21.3 H, Glucose 154 H, Calcium 7.8, Total Bilirubin 0.87, AST 1001 H, ALT 778 H, Alkaline Phosphatase 230 H, Total Protein 5.8 L, Albumin 3.2 L, Globulin 2.6, Albumin/Globulin Ratio 1.2 11/14/24 08:10: Ur Random Sodium < 20, Urine Creatinine 98.40 11/14/24 11:21: POC Glucose 161 H 11/14/24 16:51: POC Glucose 173 H Physical Exam Narrative alert and no apparent distress General Appearance: cooperative, well kempt and well developed Orientation / Consciousness: awake, oriented to person and oriented to place HEENT normocephalic, head/scalp atraumatic and moist oral mucous membranes Eyes PERRL, EOMs intact bilaterally and conjunctivae normal Neck supple, no JVD, thyroid normal and no carotid bruits General: trachea midline Resp normal respiratory effort, no retractions, no use of accessory muscles and clearto auscultation bilaterally Auscultation: Negative for rales, rhonchi or wheezes Cardio S1 normal heart sound, S2 normal heart sound, no rub and no gallops Cardio Narrative: Heart rate and rhythm is irregular GI normal to inspection, nondistended, normoactive bowel sounds, soft to palpation,non-tender and non-distended Extremity no clubbing, cyanosis or edema Skin no rashes or lesions noted General Skin Exam: no breakdown Neuro CN's II-XII intact bilaterally, moves all extremities, no focal motor deficits and no sensory deficits noted Sensorium / Orientation: awake, alert, oriented to person and oriented to place Speech: speech normal Psych affect normal Assessment & Plan Assessment/Plan (1) Chronic anticoagulation: (2) CHF exacerbation: PLAN: Plan 1. Acute exacerbation of chronic congestive heart failure with reduced ejectionfraction-patient is currently off Lasix, nephrology is participating in her careand writing for IV fluids #2 acute kidney injury-patient's creatinine today was 3.26, BMP will be monitored, nephrology participating in her care, patient's potassium was normal today #3 chronic atrial fibrillation-patient will remain on her current medications including anticoagulation with Eliquis and rate limiting agents #4 type 2 diabetes-blood sugars will be monitored, sliding scale insulin be administered as needed #5 hyperkalemia-resolved at this time, BMP will be monitored Total clinical time spent by myself addressing the patient's medical issues, reviewing all of her data, and collaborating with patient's care team: 35-minute Charges/Coding Visit Charges Inpatient E&M: 36612 Subs Hosp L2 11/14/241916 Cosigner Signature (if applicable): CC: ~ Signed [facility]08-08-2025 Procedure note [facility] Speech Pathology [address] [place] [address] Modified Barium Swallow Study MR#: [id number] Acct: [id number] Name: DARYN GUILLERMO BLANE Rep #:[id number] : 1945 78 From: Ivet Swan, [facility]-WELLNESS PROGRAM COORDINATOR Modified Barium Swallow Patient Information Study Date: 11/14/24 Study Time: 12:30 Direct Billable Minutes: 100 Total Minutes procedure & reportin Diagnosis: PNA J18.9 Referring Physician: Edmundo Monge Reason for Referral: Assess swallow function, assess risk for aspiration, and determine recommendations for least restrictive diet textures and compensatory strategies to improve safety of swallow. Medical History: The patient is a 78-year-old female with a history of heart failure with reducedejection fraction, aortic stenosis, atrial fibrillation on Eliquis, COPD, type 2diabetes, GERD, and depression/anxiety.She presented to the [facility] ED on 11/09/2024 with worsening lower extremity edema, weight gain, orthopnea, and increased shortness of breath. Although her facility increased her Lasix from 20 mg to 40 mg over the past three days, she reported no symptomatic improvement. She deniedfever, chills, or changes in her chronic COPD-related cough. Vitals in the ED were stable: T 97.5?F, HR 102, BP 126/81, RR 22, and SpO2 98% on room air. Lab work showed a hemoglobin of 10.5 (stable), WBC within normal limits, and an elevated creatinine of 1.58 (baseline ~1.19). BNP was significantly elevated at 55,945. Chest x-ray indicated possible asymmetric pulmonary edema or right central consolidation. She was diagnosed with a heart failure exacerbation and received IV Lasix. Given her stable condition, admission was recommended with plans for outpatient follow-up at [facility] regarding aortic stenosis evaluation. Speech therapy was consulted for dysphagia evaluation due to concerns for aspiration. RN (Ariel) reported the patient was made NPO pending assessment withobserved wheezing and worsening lung sounds after PO intake. The patient appeared drowsy and lethargic at the time of ST evaluation 11/15/2024. Shewas recommended NPO and re-evaluated today. Pt was more alert and WELLNESS PROGRAM COORDINATOR recommended participation in MBSS to further assess swallow function and risk for aspirationgiven persistent throat clearing and audible wheezing. Current Diet Ordered: NPO Dentition: Edentulous and Upper Dentures Mental Status: Impaired (Confusion) Respiratory Status: Oxygenating on Room Air Penetration-Aspiration Scale Penetration-Aspiration Scale: OBJECTIVE ASSESSMENT OF SWALLOW FUNCTION (QUANTITATIVE ? PER TRIAL): PENETRATION / ASPIRATION SCALE (PICKERING): 1 = does not enter airway 2 = enters airway/above vocal folds/ejected 3 = enters airway/above vocal folds/not ejected 4 = enters airway/contacts vocal folds/ejected 5 = enters airway/contacts vocal folds/not ejected 6 = enters airway/below vocal folds/ejected 7 = enters airway/below vocal folds/not ejected despite effort 8 = enters airway/below vocal folds/no effort VIDEOFLOROSCOPIC SCALE SCORE (PICKERING): Grade I = aspiration of material that has penetrated into the laryngeal vestibule, intact cough reflex Grade II = aspiration < 10 % of the bolus, intact cough reflex Grade III = aspiration of < 10 % of the bolus, reduced cough reflex or aspiration of > 10 % of the bolus, intact cough reflex Grade IV = aspiration of > 10 % of the bolus, reduced cough reflex Penetration-Aspiration Scale Score Thin Liquid via teaspoon: Result: 1= does not enter airway Thin Liquid via teaspoon Trial 2: Result: 1= does not enter airway Thin Liquid via small single sip: cup: Result: 1= does not enter airway Thin Liquid via sequential sips: cup: Result: 2= enter airway/above vocal folds/ejected Comment: Esophageal retention - Trace retention in the UES w/ retrograde flow to the pyriform sinuses; otherwise, complete clearance. [place] Thick Liquid via small single sip: cup: Result: 1= does not enter airway Pudding via teaspoon: Result: 1= does not enter airway Comment: Esophageal screen - Moderate retention of ~50% of the bolus in the upper and middle esophagus. Thin Liquid via single sip: straw: Result: 2= enter airway/above vocal folds/ejected Comment: Esophageal screen - Liquid wash somewhat cleared pudding; however, retention of liquids in the lower esophagus w/ retrograde flow. 1/2 Cookie: Result: 1= does not enter airway Thin Liquid via single sip: straw Trial 2: Result: 2= enter airway/above vocal folds/ejected Comment: Esopahgeal screen - Liquid barium appeared to mostly clear; however, barium coated cookie appeared suspended throughout the esophagus. Two additional liquidwashes were provided, which somewhat cleared cookie retention; however, significant esophageal retention of cookie remained despite total of 3 liquid washes. Oral Phase Labial Seal: Escape progressing to mid-chin Tongue Control During Bolus Hold: Posterior escape of less than half of bolus Bolus Preparation/Mastication: Disorganized chewing/mashing with solid pieces ofbolus unchewed Bolus Transport/Lingual Motion: Repetitive/disorganized tongue motion (slowed) Oral Residue: Residue collection on oral structures Pharyngeal Phase Initiation of Pharyngeal Swallow: Bolus head at posterior laryngeal surgace of epiglottis Soft Palate Elevation: Trace column of contrast/air between soft palate and pharyngeal wall Laryngeal Elevation: Comp. Superior move thyroid cart w/comp. apprx arytenoid cart-epig pet Anterior Hyoid Excursion: Partial anterior movement Epiglottic Movement: Complete inversion Laryngeal Vestibule Closure at Height of Swallow: Incomplete; narrow column of air/contrast in laryngeal vestibule (trace laryngeal penetration of liquids during the swallow that fully ejected) Pharyngeal Stripping Wave: Present - diminished Pharyngoesophageal Segment Opening: Parital distension and partial duration; parital obstruction offlow Tongue Base Retraction: Narrow column of contrast between tongue base & post. pharyngeal wall Pharyngeal Residue: Collection of residue within or on pharyngeal structures Esophageal Phase Esophageal Clearance: Esophageal retention w/ retrograde flow through pharyngoesophageal seg Diagnosis/Impression Diagnosis: Mild-mod oropharyngeal dysphagia R13.12; Esophageal dysphagia R13.14 MBS Impressions: The oral phase is primarily marked by... -Decreased bolus control w/ premature posterior loss of <1/2 of some thin liquidtrials to the pharynx prior to swallow onset. -Disorganized and slowed tongue motion for A-P transport. -Disorganized and incomplete mastication of 1/2 of a regular-textured cookie. The pharyngeal phase is primarily marked by... -Decreased pharyngeal motility noticeable w/ cookie w/ decreased TB retraction and pharyngeal stripping wave w/ mild pharyngeal residue. Liquid wash mostly cleared pharyngeal residue of cookie. -Decreased anterior hyoid excursion w/ trace laryngeal penetration that fully ejected. No aspiration. The esophageal phase is primarily marked by... -Small CP bar at the level of C4 w/ trace retention of liquids in the UES w/ retrograde flow to thepyriform sinuses. -Moderate retention of pudding in the upper and middle esophagus, which somewhatcleared w/ liquid wash. -Retention of cookie throughout the esophagus, which somewhat cleared w/ three liquid washes; however, significant esophageal remained despite liquid washes. Pt is at risk for reflux aspiration. Recommendations Diet: Thin Liquids (Clear Liquids) Comment: Medications crushed in applesauce Compensatory Strategies: Small Sips, Slow Rate and Sitting upright (During and 60min after po intake) Supervision: Distant Supervision Recommend Repeat Modified Barium Swallow: TBD Need for Skilled Speech Therapy Services: Yes Comment: -OK TO ADVANCE TO SOFT AND BITE SIZE TEXTURES / THIN LIQUIDS W/ DIRECT SUPERVISION (ALTERNATE BITES/SIPS) IF CLEARED BY GI FOR SOLIDS FOLLOWING GI INTERVENTION. -Train the patient and staff in use of strategies to decrease risk for aspiration and reflux aspiration. -Ongoing assessment of diet tolerance. Monitor respiratory status closely. If advanced to solids byGI, would train pt in thorough mastication. -Train the patient in oral motor oropharyngeal exercise program (lingual coordination, Corrina, effortful). Recommended Referrals: GI Consult Education Completed: 1. Described result of evaluation. and 7. Pt requires further education on strategies & risks. Status Active ST Patient: Active Contact Information [facility] Speech Therapy:: Ivet Gallardo M.A. CCC-WELLNESS PROGRAM COORDINATOR? Speech-Language Pathologist?? [facility] [address] [place] [address]? [email or web address]?? [phone] 11/14/24 1531 Kassandra CCC-WELLNESS PROGRAM COORDINATOR> Date/Time Ivet Gallardo M.A. CCC-WELLNESS PROGRAM COORDINATOR Co-Signature Required for all Medicare patients Date/Time Co-Signature CC: ~ [facility]08-08-2025 Progress note Author Radha Kee [facility] Note Date/Time November 14, 2024 11: 29am [facility] Medical Records Department [address] [place] [address] Progress Note - Nephrology 11/14/24 1124 MR#: [id number] Acct: [id number] Name: DARYN GUILLERMO Rep #:[id number] : 1945 78 From: Radha glass MD PCP: Dr. Delgado Amaro, DO Status:ADM IN Location: [place] [address] Subjective Subjective Follow-up on acute kidney injury. Remains somnolent, but arousable and appropriate. Denies shortness of breath, on nasal cannula oxygen. Poor oral intake. Blood pressure is soft Objective Data Objective Data Vital Signs: Vital Signs Temp Pulse Resp BP Pulse Ox O2 Del Method O2 Flow Rate 97.4 F L 82 18 99/72 100 Nasal Cannula 2 11/14/24 09:45 11/14/24 09:45 11/14/24 09:45 11/14/24 09:45 11/14/24 09:45 11/14/24 09:45 11/14/24 09:45 Oxygen Flow Rate (L/min) 2 Oxygen Delivery Method Nasal Cannula Weight: 105.6 kg Body Mass Index (BMI) 37.5 Intake & Output: Intake and Output for Last 24 Hours 11/12/24 11/13/24 11/14/24 23:59 23:59 23:59 Intake Total 460 / 460 2263.33 / 2263.33 Output Total 0 / 0 120 / 120 Balance 460 / 460 2263.33 / 2263.33 -120 / -120 Lab / Micro Data Attestation: I reviewed the patient's lab results. 11/14/24 07:01 11/14/24 07:01 Labs: Laboratory Results - last 24 hr 11/13/24 11:43: POC Glucose 168 H 11/13/24 16:15: POC Glucose 174 H 11/13/24 22:31: POC Glucose 191 H 11/14/24 06:55: POC Glucose 162 H 11/14/24 07:01: WBC 8.9, RBC 3.60 L, Hgb 9.7 L, Hct 32.2 L, MCV 89.4, MCH 26.9 L, MCHC 30.1 L, RDW Std Deviation 54.4 H, RDW Coeff of Josiah 18.4 H, Plt Count 129 L, MPV 10.1, Immature Gran % (Auto) 0.700, Neut % (Auto) 70.8 H, Lymph % (Auto) 20.0, [place] % (Auto) 7.6, Eos % (Auto) 0.8, Baso % (Auto) 0.1, Absolute Neuts (auto) 6.3, Absolute Lymphs (auto) 1.79, Nucleated RBC % 0, Sodium 136, Potassium 3.6, Chloride 93 L, Carbon Dioxide 23.9, Anion Gap 20 H, BUN 70 H, Creatinine 3.26 H, Estim Creat Clear Calc 18.04 L, Est GFR (MDRD) Non-Af 14 L, BUN/Creatinine Ratio 21.3 H, Glucose 154 H, Calcium 7.8, Total Bilirubin 0.87, AST 1001 H, ALT 778 H, Alkaline Phosphatase 230 H, Total Protein 5.8 L, Albumin 3.2 L, Globulin 2.6, Albumin/Globulin Ratio 1.2 11/14/24 08:10: Ur Random Sodium < 20, Urine Creatinine 98.40 Physical Exam Narrative Oral mucosa is dry Const Orientation / Consciousness: oriented to person, oriented to place and lethargic Nutritional Appearance: obese HEENT normocephalic Head and Scalp: atraumatic Mouth: dry mucous membranes Neck no lymphadenopathy Resp no use of accessory muscles Auscultation: wheezes Cardio regular rate and no rub GI non-tender Auscultation: normoactive bowel sounds Skin General Skin Exam: petechiae Psych cooperative Memory / Cognition: cognition impaired Assessment & Plan Assessment/Plan (1) Hyperkalemia: PLAN: Better (2) Acidosis, metabolic: PLAN: Better (3) Acute renal insufficiency: PLAN: Acute renal failure with low fractional excretion of sodium in the settingof overdiuresis, heart failure, liver failure. Renal hypoperfusion. Patient ishypotensive, urine output is marginal. Nevertheless she started to make urine, and her creatinine started to improve. I am actually surprised to see such a good albumin, unless it has been given. Plan Continue with maintenance IV, switch from bicarb drip to normal saline IV albumin shall level drop No dialysis indicated, she is a poor candidate for dialysis as well PLAN: Plan Acute kidney injury 11/14/24 1129 <Electronically signed by Radha Kee MD> Cosigner Signature (if applicable): CC: ~ Signed [facility] Work Phone: 1(188) 305-102408-08-2025 Progress note [facility] Medical Records Department [address] [place] [address] Progress Note - Nephrology 11/14/241123 MR#: [id number] Acct: [id number] Name: DARYN GUILLERMO Rep #:[id number] : 1945 78 From: Radha glass MD PCP: Dr. Delgado Amaro, DO Status:ADM IN Location: [place] [address] Subjective Subjective Follow-up on acute kidney injury. Remains somnolent, but arousable and appropriate. Denies shortness of breath, on nasal cannula oxygen. Poor oral intake. Blood pressure is soft Objective Data Objective Data Vital Signs: Vital Signs Temp Pulse Resp BP Pulse Ox O2 Del Method O2 Flow Rate 97.4 F L 82 18 99/72 100 Nasal Cannula 2 11/14/24 09:45 11/14/24 09:45 11/14/24 09:45 11/14/24 09:45 11/14/24 09:45 11/14/24 09:45 11/14/24 09:45 Oxygen Flow Rate (L/min) 2 Oxygen Delivery Method Nasal Cannula Weight: 105.6 kg Body Mass Index (BMI) 37.5 Intake & Output: Intake and Output for Last 24 Hours 11/12/24 11/13/24 11/14/24 23:59 23:59 23:59 Intake Total 460 / 460 2263.33 / 2263.33 Output Total 0 / 0 120 / 120 Balance 460 / 460 2263.33 / 2263.33 -120 / -120 Lab / Micro Data Attestation: I reviewed the patient's lab results. 11/14/24 07:01 11/14/24 07:01 Labs: Laboratory Results - last 24 hr 11/13/24 11:43: POC Glucose 168 H 11/13/24 16:15: POC Glucose 174 H 11/13/24 22:31: POC Glucose 191 H 11/14/24 06:55: POC Glucose 162 H 11/14/24 07:01: WBC 8.9, RBC 3.60 L, Hgb 9.7 L, Hct 32.2 L, MCV 89.4, MCH 26.9 L, MCHC 30.1 L, RDW Std Deviation 54.4 H, RDW Coeff of Josiah 18.4 H, Plt Count 129 L, MPV 10.1, Immature Gran % (Auto) 0.700, Neut % (Auto) 70.8 H, Lymph % (Auto) 20.0, [place] % (Auto) 7.6, Eos % (Auto) 0.8, Baso % (Auto) 0.1, Absolute Neuts (auto) 6.3, Absolute Lymphs (auto) 1.79, Nucleated RBC % 0, Sodium 136, Potassium 3.6, Chloride 93 L, Carbon Dioxide 23.9, Anion Gap 20 H, BUN 70 H, Creatinine 3.26 H, Estim Creat Clear Calc 18.04 L, Est GFR (MDRD) Non-Af 14 L, BUN/Creatinine Ratio 21.3 H, Glucose 154 H, Calcium 7.8, Total Bilirubin 0.87, AST 1001 H, ALT 778 H, Alkaline Phosphatase 230 H, Total Protein 5.8 L, Albumin 3.2 L, Globulin 2.6, Albumin/Globulin Ratio 1.2 11/14/24 08:10: Ur Random Sodium < 20, Urine Creatinine 98.40 Physical Exam Narrative Oral mucosa is dry Const Orientation / Consciousness: oriented to person, oriented to place and lethargic Nutritional Appearance: obese HEENT normocephalic Head and Scalp: atraumatic Mouth: dry mucous membranes Neck no lymphadenopathy Resp no use of accessory muscles Auscultation: wheezes Cardio regular rate and no rub GI non-tender Auscultation: normoactive bowel sounds Skin General Skin Exam: petechiae Psych cooperative Memory / Cognition: cognition impaired Assessment & Plan Assessment/Plan (1) Hyperkalemia: PLAN: Better (2) Acidosis, metabolic: PLAN: Better (3) Acute renal insufficiency: PLAN: Acute renal failure with low fractional excretion of sodium in the settingof overdiuresis, heart failure, liver failure. Renal hypoperfusion. Patient ishypotensive, urine output is marginal. Nevertheless she started to make urine, and her creatinine started to improve. I am actually surprisedto see such a good albumin, unless it has been given. Plan Continue with maintenance IV, switch from bicarb drip to normal saline IV albumin shall level drop No dialysis indicated, she is a poor candidate for dialysis as well PLAN: Plan Acute kidney injury 11/14/24 1129 Cosigner Signature (if applicable): CC: ~ Signed [facility]08-07-2025 Progress note Author Edmundo Monge [facility] Note Date/Time November 13, 2024 6:1 6pm [facility] Medical Records Department [address] [facility] [place] [address] Progress Note - Hospitalist 11/13/24 1810 MR#: [id number] Acct: [id number] Name: DARYN GUILLERMO Rep #:[id number] : 1945 78 From: Edmundo Monge DO PCP: Dr. Delgado Amaro, DO Status:ADM IN Location: [place] [id number]- [id number] Reason for Visit Chief Complaint: Lower extremity swelling and shortness of breath Subjective Subjective Patient was seen and examined today, she is alert and nods her head to questions. I talked briefly with nephrology today by phone, her midline catheter was pulled out early this morning by the patient and nephrology agrees it should be replaced and her bicarb drip should be continued. I also talked tothe patient's son, I discussed the possible need for dialysis with him and he states that he would be in favor of dialysis until the patient is alert enough to make her own decisions. Objective Data Objective Data Vital Signs: Vital Signs Temp Pulse Resp BP Pulse Ox O2 Del Method O2 Flow Rate 97.6 F L 100 18 135/117 H 100 Nasal Cannula 2 11/13/24 17:15 11/13/24 17:15 11/13/24 17:15 11/13/24 17:15 11/13/24 17:15 11/13/24 17:15 11/13/24 17:15 Oxygen Flow Rate (L/min) 2 Oxygen Delivery Method Nasal Cannula Weight: 104.2 kg Body Mass Index (BMI) 37.0 Intake & Output: Intake and Output for Last 24 Hours 11/11/24 11/12/24 11/13/24 23:59 23:59 23:59 Intake Total 1570 / 1570 460 / 460 1654.58 / 1654.58 Output Total 770 / 770 0 / 0 Balance 800 / 800 460 / 460 1654.58 / 1654.58 Lab / Micro Data 11/13/24 06:15 11/13/24 06:15 Labs: Laboratory Results - last 24 hr 11/12/24 20:57: POC Glucose 185 H 11/13/24 05:51: POC Glucose 193 H 11/13/24 06:15: WBC 12.0 H, RBC 3.80 L, Hgb 10.4 L, Hct 33.3 L, MCV 87.6, MCH 27.4, MCHC 31.2 L, RDW Std Deviation 53.2 H, RDW Coeff of Josiah 18.0 H, Plt Count 175, MPV 10.1, Immature Gran % (Auto) 0.600, Neut % (Auto) 76.6 H, Lymph % (Auto) 15.2 L, [place] % (Auto) 7.3, Eos % (Auto) 0.2, Baso % (Auto) 0.1, Absolute Neuts (auto) 9.2 H, Absolute Lymphs (auto) 1.83, Nucleated RBC % 0.2, Sodium 135, Potassium 4.6, Chloride 93 L, Carbon Dioxide 22.7, Anion Gap 20 H, BUN 70 H, Creatinine 3.47 H, Estim Creat Clear Calc 16.82 L, Est GFR (MDRD) Non-Af 13 L,BUN/Creatinine Ratio 20.1 H, Glucose 195 H, Calcium 7.9 11/13/24 11:43: POC Glucose 168 H 11/13/24 16:15: POC Glucose 174 H Radiography Diagnostic Testing: Radiology Impression Chest X-Ray 11/13/24 09:20 IMPRESSION: Cardiomegaly. Residual mild vascular congestion and CHF although there has been improvement. Reading Location: [id number] Physical Exam Narrative alert and no apparent distress General Appearance: cooperative, well kempt and well developed Orientation / Consciousness: awake, oriented to person and oriented to place HEENT normocephalic, head/scalp atraumatic and moist oral mucous membranes Eyes PERRL, EOMs intact bilaterally and conjunctivae normal Neck supple, no JVD, thyroid normal and no carotid bruits General: trachea midline Resp normal respiratory effort, no retractions, no use of accessory muscles and clearto auscultation bilaterally Auscultation: Negative for rales, rhonchi or wheezes Cardio S1 normal heart sound, S2 normal heart sound, no rub and no gallops Cardio Narrative: Heart rate and rhythm is irregular GI normal to inspection, nondistended, normoactive bowel sounds, soft to palpation,non-tender and non-distended Extremity no clubbing, cyanosis or edema Skin no rashes or lesions noted General Skin Exam: no breakdown Neuro CN's II-XII intact bilaterally, moves all extremities, no focal motor deficits and no sensory deficits noted Sensorium / Orientation: awake, alert, oriented to person and oriented to place Speech: speech normal Psych affect normal Assessment & Plan Assessment/Plan (1) CHF exacerbation: PLAN: Plan 1. Acute exacerbation of chronic congestive heart failure with reduced ejectionfraction-patient is currently off Lasix, midline will be placed today, patient will receive bicarb drip, nephrology is participating in her care #2 acute kidney injury-patient's creatinine today was 3.47, BMP will be monitored, nephrology participating in her care, patient's potassium was normal today #3 chronic atrial fibrillation-patient will remain on her current medications including anticoagulation with Eliquis and rate limiting agents #4 type 2 diabetes-blood sugars will be monitored, sliding scale insulin be administered as needed #5 hyperkalemia-resolved at this time, BMP will be monitored Total clinical time spent by myself addressing the patient's medical issues, reviewing all of her data, and collaborating with patient's care team: 35-minute Charges/Coding Visit Charges Inpatient E&M: 17409 Subs Hosp L2 11/13/24 2337 <Electronically signed by Edmundo Monge DO> Cosigner Signature (if applicable): CC: ~ Signed [facility] Work Phone: 1(911) 476-793808-07-2025 Progress note Author Edmundo Monge [facility] Note Date/Time November 13, 2024 6:1 0pm [facility] Medical Records Department [address] [place] [address] Progress Note - Hospitalist 11/12/24 1744 MR#: [id number] Acct: [id number] Name: DARYN GUILLERMO Rep #:[id number] : 1945 78 From: Edmundo Monge DO PCP: Dr. Delgado Amaro, DO Status:ADM IN Location: [place] [address]- Reason for Visit Chief Complaint: Lower extremity swelling and shortness of breath Subjective Subjective Patient was seen and examined today, she appeared lethargic today and was not able to carry on a full conversation with this examiner. I talked with nephrology about her care, nephrology recommended placing her on a bicarb drip, due to poor IV access, a midline catheter had to be inserted. According to the patient's snf paperwork, she is a DNR CC arrest, I confirmed this with the patient's son by phone today and changed the patient's CODE STATUS. Patient's potassium was high this morning, I gave her some Kayexalate and her repeat potassium this afternoon was 5.1. Objective Data Objective Data Vital Signs: Vital Signs Temp Pulse Resp BP Pulse Ox O2 Del Method 97.5 F L 81 18 91/59 L 92 Room Air 11/12/24 15:36 11/12/24 15:36 11/12/24 15:36 11/12/24 15:36 11/12/24 15:36 11/12/24 15:40 Oxygen Delivery Method Room Air Weight: 102.8 kg Body Mass Index (BMI) 36.6 Intake & Output: Intake and Output for Last 24 Hours 11/10/24 11/11/24 11/12/24 23:59 23:59 23:59 Intake Total 1170 / 1170 1570 / 1570 240 / 240 Output Total 850 / 850 770 / 770 0 / 0 Balance 320 / 320 800 / 800 240 / 240 Lab / Micro Data 11/13/24 06:15 11/13/24 06:15 Labs: Laboratory Results - last 24 hr 11/11/24 12:13: U Random Total Protein 89.5 H, Urine Creatinine 173.00, Protein/Creatinin Ratio 517 H 11/11/24 19:35: POC Glucose 93 11/11/24 21:49: POC Glucose 85 11/12/24 05:44: Sodium 136, Potassium 6.3 H*, Chloride 94 L, Carbon Dioxide 17.0L, Anion Gap 25 H, BUN 57 H, Creatinine 3.00 H, Estim Creat Clear Calc 19.32 L, Est GFR (MDRD) Non-Af 16 L, BUN/Creatinine Ratio 18.9, Glucose 104 H, Calcium 9.4 11/12/24 06:34: POC Glucose 110 H 11/12/24 07:40: Sodium 135, Potassium 6.3 H*, Chloride 93 L, Carbon Dioxide 15.5L, Anion Gap 27 H, BUN 55 H, Creatinine 3.05 H, Estim Creat Clear Calc 19.00 L, Est GFR (MDRD) Non-Af 15 L, BUN/Creatinine Ratio 18.0, Glucose 108 H, Calcium 9.3 11/12/24 13:17: Sodium 137, Potassium 5.1, Chloride 95 L, Carbon Dioxide 19.6 L,Anion Gap 23 H, BUN 61 H, Creatinine 3.18 H, Estim Creat Clear Calc 18.22 L, EstGFR (MDRD) Non-Af 15 L, BUN/Creatinine Ratio 19.1, Glucose 163 H, Calcium 8.6 11/12/24 16:39: POC Glucose 171 H Radiography Diagnostic Testing: Radiology Impression Renal Ultrasound 11/11/24 11:48 IMPRESSION: 1. No hydronephrosis. 2. Additional description as above. Reading Location: [id number] Physical Exam Narrative alert and no apparent distress General Appearance: cooperative, well kempt and well developed Orientation / Consciousness: awake, oriented to person and oriented to place HEENT normocephalic, head/scalp atraumatic and moist oral mucous membranes Eyes PERRL, EOMs intact bilaterally and conjunctivae normal Neck supple, no JVD, thyroid normal and no carotid bruits General: trachea midline Resp normal respiratory effort, no retractions, no use of accessory muscles and clearto auscultation bilaterally Auscultation: Negative for rales, rhonchi or wheezes Cardio S1 normal heart sound, S2 normal heart sound, no rub and no gallops Cardio Narrative: Heart rate and rhythm is irregular GI normal to inspection, nondistended, normoactive bowel sounds, soft to palpation,non-tender and non-distended Extremity no clubbing, cyanosis or edema Skin no rashes or lesions noted General Skin Exam: no breakdown Neuro CN's II-XII intact bilaterally, moves all extremities, no focal motor deficits and no sensory deficits noted Sensorium / Orientation: awake, alert, oriented to person and oriented to place Speech: speech normal Psych affect normal Assessment & Plan Assessment/Plan (1) CHF exacerbation: PLAN: Plan 1. Acute exacerbation of chronic congestive heart failure with reduced ejectionfraction-patient is currently off Lasix, midline will be placed today, patient will receive bicarb drip, nephrology is participating in her care #2 acute kidney injury-patient's creatinine today was 3.00, BMP will be monitored, nephrology participating in her care #3 chronic atrial fibrillation-patient will remain on her current medications including anticoagulation with Eliquis and rate limiting agents #4 type 2 diabetes-blood sugars will be monitored, sliding scale insulin be administered as needed Total clinical time spent by myself addressing the patient's medical issues, reviewing all of her data, and collaborating with patient's care team: 35-minute Charges/Coding Visit Charges Inpatient E&M: 90530 Subs Hosp L2 11/13/24 1810 <Electronically signed by Edmundo Monge DO> Cosigner Signature (if applicable): CC: ~ Signed [facility] Work Phone: 1(373) [phone] Progress note Author Edmundo [facility] Note Date/Time November 13, 2024 5:5 7pm [facility] Medical Records Department [address] [place] [address] Progress Note - Hospitalist 11/11/24 1610 MR#: [id number] Acct: [id number] Name: DARYN GUILLERMO Rep #:[id number] : 1945 78 From: Edmundo Monge DO PCP: Dr. Delgado Amaro, DO Status:ADM IN Location: [place] [address] Reason for Visit Chief Complaint: Lower extremity swelling and shortness of breath Subjective Subjective Patient was seen and examined today, she is currently on room air, her creatinine sukhwinder to 2.11 today, I have elected to stop her Lasix and repeat her BMP in the morning. I did have nephrology see the patient today, her repeat chest x-ray today showed residual CHF with improvement overall. Objective Data Objective Data Vital Signs: Vital Signs Temp Pulse Resp BP Pulse Ox O2 Del Method 97.5 F L 116 H 18 98/62 94 Room Air 11/11/24 14:57 11/11/24 14:57 11/11/24 14:57 11/11/24 14:57 11/11/24 14:57 11/11/24 14:57 Oxygen Delivery Method Room Air Weight: 103.4 kg Body Mass Index (BMI) 36.8 Intake & Output: Intake and Output for Last 24 Hours 11/09/24 11/10/24 11/11/24 23:59 23:59 23:59 Intake Total 480 / 780 1170 / 1170 1090 / 1090 Output Total 1150 / 1550 850 / 850 720 / 720 Balance -670 / -770 320 / 320 370 / 370 Lab / Micro Data 11/13/24 06:15 11/13/24 06:15 Labs: Laboratory Results - last 24 hr 11/10/24 16:43: POC Glucose 114 H 11/10/24 22:45: POC Glucose 88 11/11/24 05:16: Sodium 140, Potassium 4.5, Chloride 99, Carbon Dioxide 22.8, Anion Gap 18 H, BUN 46 H, Creatinine 2.11 H, Estim Creat Clear Calc 27.55 L, Est GFR (MDRD) Non-Af 24 L, BUN/Creatinine Ratio 21.8 H, Glucose 91, Calcium 9.3 11/11/24 07:01: POC Glucose 68 L 11/11/24 11:58: POC Glucose 79 11/11/24 12:13: Urine Color Yellow, Urine Clarity Cloudy, Urine pH 5.0, Ur Specific [place] 1.025, Urine Protein 100 H, Urine Glucose (UA) 50 H, Urine Ketones Negative, Urine Occult Blood 25 H, Urine Nitrite Negative, Urine Bilirubin 1 H, Urine Urobilinogen 1 H, Ur Leukocyte Esterase 500 H, Urine RBC 0 SEEN, Urine WBC 25-50 SEEN, Ur Squamous Epith Cells 0 SEEN, Urine Bacteria 3+, Urine Mucus 0 SEEN Radiography Diagnostic Testing: Radiology Impression Chest X-Ray 11/11/24 09:50 IMPRESSION: Residual CHF although there has been improvement. Bibasilar atelectasis. Reading Location: [facility] Physical Exam Narrative alert and no apparent distress General Appearance: cooperative, well kempt and well developed Orientation / Consciousness: awake, oriented to person and oriented to place HEENT normocephalic, head/scalp atraumatic and moist oral mucous membranes Eyes PERRL, EOMs intact bilaterally and conjunctivae normal Neck supple, no JVD, thyroid normal and no carotid bruits General: trachea midline Resp normal respiratory effort, no retractions, no use of accessory muscles and clearto auscultation bilaterally Auscultation: Negative for rales, rhonchi or wheezes Cardio S1 normal heart sound, S2 normal heart sound, no rub and no gallops Cardio Narrative: Heart rate and rhythm is irregular GI normal to inspection, nondistended, normoactive bowel sounds, soft to palpation,non-tender and non-distended Extremity no clubbing, cyanosis or edema Skin no rashes or lesions noted General Skin Exam: no breakdown Neuro CN's II-XII intact bilaterally, moves all extremities, no focal motor deficits and no sensory deficits noted Sensorium / Orientation: awake, alert, oriented to person and oriented to place Speech: speech normal Psych affect normal Assessment & Plan Assessment/Plan (1) CHF exacerbation: PLAN: Plan 1. Acute exacerbation of chronic congestive heart failure with reduced ejectionfraction-patient is currently off Lasix #2 acute kidney injury-patient's creatinine today was 2.11, BMP will be monitored #3 chronic atrial fibrillation-patient will remain on her current medications including anticoagulation with Eliquis and rate limiting agents #4 type 2 diabetes-blood sugars will be monitored, sliding scale insulin be administered as needed Total clinical time spent by myself addressing the patient's medical issues, reviewing all of her data, and collaborating with patient's care team: 35-minute Charges/Coding Visit Charges Inpatient E&M: 08189 Subs Hosp L2 11/13/24 0711 <Electronically signed by Edmundo Monge DO> Cosigner Signature (if applicable): CC: ~ Signed [facility] Work Phone: [phone]) [phone] Progress note [facility] Medical Records Department [address] [place] [address] Progress Note - Hospitalist 11/13/24 1810 MR#: [id number] Acct: [id number] Name: DARYN GUILLERMO Rep #:[id number] : 1945 78 From: Edmundo Monge DO PCP: Dr. Delgado Amaro, DO Status:ADM IN Location: [place] [address] Reason for Visit Chief Complaint: Lower extremity swelling and shortness of breath Subjective Subjective Patient was seen and examined today, she is alert and nods her head to questions. I talked briefly with nephrology today by phone, her midline catheter was pulled out early this morning by the patient and nephrology agrees it should be replaced and her bicarb drip should be continued. I also talkedtothe patient's son, I discussed the possible need for dialysis with him and he states that he would be in favor of dialysis until the patient is alert enough to make her own decisions. Objective Data Objective Data Vital Signs: Vital Signs Temp Pulse Resp BP Pulse Ox O2 Del Method O2 Flow Rate 97.6 F L 100 18 135/117 H 100 Nasal Cannula 2 11/13/24 17:15 11/13/24 17:15 11/13/24 17:15 11/13/24 17:15 11/13/24 17:15 11/13/24 17:15 11/13/24 17:15 Oxygen Flow Rate (L/min) 2 Oxygen Delivery Method Nasal Cannula Weight: 104.2 kg Body Mass Index (BMI) 37.0 Intake & Output: Intake and Output for Last 24 Hours 11/11/24 11/12/24 11/13/24 23:59 23:59 23:59 Intake Total 1570 / 1570 460 / 460 1654.58 / 1654.58 Output Total 770 / 770 0 / 0 Balance 800 / 800 460 / 460 1654.58 / 1654.58 Lab / Micro Data 11/13/24 06:15 11/13/24 06:15 Labs: Laboratory Results - last 24 hr 11/12/24 20:57: POC Glucose 185 H 11/13/24 05:51: POC Glucose 193 H 11/13/24 06:15: WBC 12.0 H, RBC 3.80 L, Hgb 10.4 L, Hct 33.3 L, MCV 87.6, MCH 27.4, MCHC 31.2 L, RDW Std Deviation 53.2 H, RDW Coeff of Josiah 18.0 H, Plt Count 175, MPV 10.1, Immature Gran % (Auto) 0.600, Neut % (Auto) 76.6 H, Lymph % (Auto) 15.2 L, [place] % (Auto) 7.3, Eos % (Auto) 0.2, Baso % (Auto) 0.1, Absolute Neuts (auto) 9.2 H, Absolute Lymphs (auto) 1.83, Nucleated RBC % 0.2, Sodium 135, Potassium 4.6, Chloride 93 L, Carbon Dioxide 22.7, Anion Gap 20 H, BUN 70 H, Creatinine 3.47 H, Estim Creat Clear Calc 16.82 L, Est GFR (MDRD) Non-Af 13 L,BUN/Creatinine Ratio 20.1 H, Glucose 195 H, Calcium 7.9 11/13/24 11:43: POC Glucose 168 H 11/13/24 16:15: POC Glucose 174 H Radiography Diagnostic Testing: Radiology Impression Chest X-Ray 11/13/24 09:20 IMPRESSION: Cardiomegaly. Residual mild vascular congestion and CHF although there has been improvement. Reading Location: [facility] Physical Exam Narrative alert and no apparent distress General Appearance: cooperative, well kempt and well developed Orientation / Consciousness: awake, oriented to person and oriented to place HEENT normocephalic, head/scalp atraumatic and moist oral mucous membranes Eyes PERRL, EOMs intact bilaterally and conjunctivae normal Neck supple, no JVD, thyroid normal and no carotid bruits General: trachea midline Resp normal respiratory effort, no retractions, no use of accessory muscles and clearto auscultation bilaterally Auscultation: Negative for rales, rhonchi or wheezes Cardio S1 normal heart sound, S2 normal heart sound, no rub and no gallops Cardio Narrative: Heart rate and rhythm is irregular GI normal to inspection, nondistended, normoactive bowel sounds, soft to palpation,non-tender and non-distended Extremity no clubbing, cyanosis or edema Skin no rashes or lesions noted General Skin Exam: no breakdown Neuro CN's II-XII intact bilaterally, moves all extremities, no focal motor deficits and no sensory deficits noted Sensorium / Orientation: awake, alert, oriented to person and oriented to place Speech: speech normal Psych affect normal Assessment & Plan Assessment/Plan (1) CHF exacerbation: PLAN: Plan 1. Acute exacerbation of chronic congestive heart failure with reduced ejectionfraction-patient is currently off Lasix, midline will be placed today, patient will receive bicarb drip, nephrology is participating in her care #2 acute kidney injury-patient's creatinine today was 3.47, BMP will be monitored, nephrology participating in her care, patient's potassium was normal today #3 chronic atrial fibrillation-patient will remain on her current medications including anticoagulation with Eliquis and rate limiting agents #4 type 2 diabetes-blood sugars will be monitored, sliding scale insulin be administered as needed #5 hyperkalemia-resolved at this time, BMP will be monitored Total clinical time spent by myself addressing the patient's medical issues, reviewing all of her data, and collaborating with patient's care team: 35-minute Charges/Coding Visit Charges Inpatient E&M: 76963 Subs Hosp L2 11/13/24 1816 Cosigner Signature (if applicable): CC: ~ Signed [facility]08-07-2025 Progress note [facility] Medical Records Department [address] [place] [address] Progress Note - Hospitalist 11/12/24 1744 MR#: [id number] Acct: [id number] Name: DARYN GUILLERMO Rep #:[id number] : 1945 78 From: Edmundo Monge DO PCP: Dr. Delgado Amaro, DO Status:ADM IN Location: [place] [address] Reason for Visit Chief Complaint: Lower extremity swelling and shortness of breath Subjective Subjective Patient was seen and examined today, she appeared lethargic today and was not able to carry on a full conversation with this examiner. I talked with nephrology about her care, nephrology recommended placing her on a bicarb drip, due to poor IV access, a midline catheter had to be inserted. According to the patient's snf paperwork, she is a DNR CC arrest, I confirmed this with the patient's son by phone today and changed the patient's CODE STATUS. Patient's potassium was high this morning, I gave her some Kayexalate and her repeat potassium this afternoon was 5.1. Objective Data Objective Data Vital Signs: Vital Signs Temp Pulse Resp BP Pulse Ox O2 Del Method 97.5 F L 81 18 91/59 L 92 Room Air 11/12/24 15:36 11/12/24 15:36 11/12/24 15:36 11/12/24 15:36 11/12/24 15:36 11/12/24 15:40 Oxygen Delivery Method Room Air Weight: 102.8 kg Body Mass Index (BMI) 36.6 Intake & Output: Intake and Output for Last 24 Hours 11/10/24 11/11/24 11/12/24 23:59 23:59 23:59 Intake Total 1170 / 1170 1570 / 1570 240 / 240 Output Total 850 / 850 770 / 770 0 / 0 Balance 320 / 320 800 / 800 240 / 240 Lab / Micro Data 11/13/24 06:15 11/13/24 06:15 Labs: Laboratory Results - last 24 hr 11/11/24 12:13: U Random Total Protein 89.5 H, Urine Creatinine 173.00, Protein/Creatinin Ratio 517H 11/11/24 19:35: POC Glucose 93 11/11/24 21:49: POC Glucose 85 11/12/24 05:44: Sodium 136, Potassium 6.3 H*, Chloride 94 L, Carbon Dioxide 17.0L, Anion Gap 25 H, BUN 57 H, Creatinine 3.00 H, Estim Creat Clear Calc 19.32 L, Est GFR (MDRD) Non-Af 16 L, BUN/Creatinine Ratio 18.9, Glucose 104 H, Calcium 9.4 11/12/24 06:34: POC Glucose 110 H 11/12/24 07:40: Sodium 135, Potassium 6.3 H*, Chloride 93 L, Carbon Dioxide 15.5L, Anion Gap 27 H, BUN 55 H, Creatinine 3.05 H, Estim Creat Clear Calc 19.00 L, Est GFR (MDRD) Non-Af 15 L, BUN/Creatinine Ratio 18.0, Glucose 108 H, Calcium 9.3 11/12/24 13:17: Sodium 137, Potassium 5.1, Chloride 95 L, Carbon Dioxide 19.6 L,Anion Gap 23 H, BUN61 H, Creatinine 3.18 H, Estim Creat Clear Calc 18.22 L, EstGFR (MDRD) Non-Af 15 L, BUN/Creatinine Ratio 19.1, Glucose 163 H, Calcium 8.6 11/12/24 16:39: POC Glucose 171 H Radiography Diagnostic Testing: Radiology Impression Renal Ultrasound 11/11/24 11:48 IMPRESSION: 1. No hydronephrosis. 2. Additional description as above. Reading Location: [facility] Physical Exam Narrative alert and no apparent distress General Appearance: cooperative, well kempt and well developed Orientation / Consciousness: awake, oriented to person and oriented to place HEENT normocephalic, head/scalp atraumatic and moist oral mucous membranes Eyes PERRL, EOMs intact bilaterally and conjunctivae normal Neck supple, no JVD, thyroid normal and no carotid bruits General: trachea midline Resp normal respiratory effort, no retractions, no use of accessory muscles and clearto auscultation bilaterally Auscultation: Negative for rales, rhonchi or wheezes Cardio S1 normal heart sound, S2 normal heart sound, no rub and no gallops Cardio Narrative: Heart rate and rhythm is irregular GI normal to inspection, nondistended, normoactive bowel sounds, soft to palpation,non-tender and non-distended Extremity no clubbing, cyanosis or edema Skin no rashes or lesions noted General Skin Exam: no breakdown Neuro CN's II-XII intact bilaterally, moves all extremities, no focal motor deficits and no sensory deficits noted Sensorium / Orientation: awake, alert, oriented to person and oriented to place Speech: speech normal Psych affect normal Assessment & Plan Assessment/Plan (1) CHF exacerbation: PLAN: Plan 1. Acute exacerbation of chronic congestive heart failure with reduced ejectionfraction-patient is currently off Lasix, midline will be placed today, patient will receive bicarb drip, nephrology is participating in her care #2 acute kidney injury-patient's creatinine today was 3.00, BMP will be monitored, nephrology participating in her care #3 chronic atrial fibrillation-patient will remain on her current medications including anticoagulation with Eliquis and rate limiting agents #4 type 2 diabetes-blood sugars will be monitored, sliding scale insulin be administered as needed Total clinical time spent by myself addressing the patient's medical issues, reviewing all of her data, and collaborating with patient's care team: 35-minute Charges/Coding Visit Charges Inpatient E&M: 04267 Subs Hosp L2 11/13/24 1810 Cosigner Signature (if applicable): CC: ~ Signed [facility]08-07-2025 Progress note [facility] Medical Records Department [address] [place] [address] Progress Note - Hospitalist 11/11/24 1610 MR#: [id number] Acct: [id number] Name: DARYN GUILLERMO Rep #:[id number] : 1945 78 From: Edmundo Monge DO PCP: Dr. Delgado Amaro, DO Status:ADM IN Location: [place] [address] Reason for Visit Chief Complaint: Lower extremity swelling and shortness of breath Subjective Subjective Patient was seen and examined today, she is currently on room air, her creatinine sukhwinder to 2.11 today, I have elected to stop her Lasix and repeat her BMP in the morning. I did have nephrology see thepatient today, her repeat chest x-ray today showed residual CHF with improvement overall. Objective Data Objective Data Vital Signs: Vital Signs Temp Pulse Resp BP Pulse Ox O2 Del Method 97.5 F L 116 H 18 98/62 94 Room Air 11/11/24 14:57 11/11/24 14:57 11/11/24 14:57 11/11/24 14:57 11/11/24 14:57 11/11/24 14:57 Oxygen Delivery Method Room Air Weight: 103.4 kg Body Mass Index (BMI) 36.8 Intake & Output: Intake and Output for Last 24 Hours 11/09/24 11/10/24 11/11/24 23:59 23:59 23:59 Intake Total 480 / 780 1170 / 1170 1090 / 1090 Output Total 1150 / 1550 850 / 850 720 / 720 Balance -670 / -770 320 / 320 370 / 370 Lab / Micro Data 11/13/24 06:15 11/13/24 06:15 Labs: Laboratory Results - last 24 hr 11/10/24 16:43: POC Glucose 114 H 11/10/24 22:45: POC Glucose 88 11/11/24 05:16: Sodium 140, Potassium 4.5, Chloride 99, Carbon Dioxide 22.8, Anion Gap 18 H, BUN 46H, Creatinine 2.11 H, Estim Creat Clear Calc 27.55 L, Est GFR (MDRD) Non-Af 24 L, BUN/Creatinine Ratio 21.8 H, Glucose 91, Calcium 9.3 11/11/24 07:01: POC Glucose 68 L 11/11/24 11:58: POC Glucose 79 11/11/24 12:13: Urine Color Yellow, Urine Clarity Cloudy, Urine pH 5.0, Ur Specific [place] 1.025, Urine Protein 100 H, Urine Glucose (UA) 50 H, Urine Ketones Negative, Urine Occult Blood 25 H, UrineNitrite Negative, Urine Bilirubin 1 H, Urine Urobilinogen 1 H, Ur Leukocyte Esterase 500 H, Urine RBC 0 SEEN, Urine WBC 25-50 SEEN, Ur Squamous Epith Cells 0 SEEN, Urine Bacteria 3+, Urine Mucus 0 SEEN Radiography Diagnostic Testing: Radiology Impression Chest X-Ray 11/11/24 09:50 IMPRESSION: Residual CHF although there has been improvement. Bibasilar atelectasis. Reading Location: [facility] Physical Exam Narrative alert and no apparent distress General Appearance: cooperative, well kempt and well developed Orientation / Consciousness: awake, oriented to person and oriented to place HEENT normocephalic, head/scalp atraumatic and moist oral mucous membranes Eyes PERRL, EOMs intact bilaterally and conjunctivae normal Neck supple, no JVD, thyroid normal and no carotid bruits General: trachea midline Resp normal respiratory effort, no retractions, no use of accessory muscles and clearto auscultation bilaterally Auscultation: Negative for rales, rhonchi or wheezes Cardio S1 normal heart sound, S2 normal heart sound, no rub and no gallops Cardio Narrative: Heart rate and rhythm is irregular GI normal to inspection, nondistended, normoactive bowel sounds, soft to palpation,non-tender and non-distended Extremity no clubbing, cyanosis or edema Skin no rashes or lesions noted General Skin Exam: no breakdown Neuro CN's II-XII intact bilaterally, moves all extremities, no focal motor deficits and no sensory deficits noted Sensorium / Orientation: awake, alert, oriented to person and oriented to place Speech: speech normal Psych affect normal Assessment & Plan Assessment/Plan (1) CHF exacerbation: PLAN: Plan 1. Acute exacerbation of chronic congestive heart failure with reduced ejectionfraction-patient is currently off Lasix #2 acute kidney injury-patient's creatinine today was 2.11, BMP will be monitored #3 chronic atrial fibrillation-patient will remain on her current medications including anticoagulation with Eliquis and rate limiting agents #4 type 2 diabetes-blood sugars will be monitored, sliding scale insulin be administered as needed Total clinical time spent by myself addressing the patient's medical issues, reviewing all of her data, and collaborating with patient's care team: 35-minute Charges/Coding Visit Charges Inpatient E&M: 92122 Subs Hosp L2 11/13/24 1753 Cosigner Signature (if applicable): CC: ~ Signed [facility]08-07-2025 Radiology Diagnostic study note [facility] Imaging Services [address] [place] [address] Chest 1 View (Portable) MR#: [id number] Acct: [id number] Name: DARYN GUILLERMO Rep #: [id number] : 1945 F 78 From: Сергей Wolff MD PCP: Dr. Delgado Amaro DO Status: ADM IN Study:Chest 1 View (Portable) Date of Exam: 11/13/24 Exam# [id number] Ordering Dr: Edmundo Ron DO PROCEDURE: CHEST 1 VIEW (PORTABLE) 11/13/2024 REASON FOR EXAM: HYPOXIA TECHNIQUE: Frontal view of the chest. COMPARISON: Prior study dated November 11 2024. FINDINGS: Hardware: EKG electrodes are seen. Heart: Cardiomegaly. Lungs: Mild residual vascular congestion and CHF although there has been furtherimprovement. Blunting of both costophrenic angles. Bones: The bones are unremarkable. Other: RAD/Chest 1 View (Portable) IMPRESSION: Cardiomegaly. Residual mild vascular congestion and CHF although there has been improvement. Reading Location: [facility] CC: Dr. Edmundo Monge, DO; Dr. Delgado Amaro, ~ Lpn Or Medical Assistant: Signed [facility]08-06-2025 Consult note Author Jeri Rowland [facility] Note Date/Time November 12, 2024 11: 09am [facility] Medical Records Department [address] [place] [address] Consultation - Nephrology 11/11/24 1153 MR#: [id number] Acct: [id number] Name: DARYN GUILLERMO Rep #:[id number] : 1945 78 From: Jeri torrez FACTORY WORKER-C PCP: Dr. Delgado Amaro DO Status:ADM IN Location: [place] [id number] Assessment & Plan Assessment/Plan (1) Acute renal insufficiency: (2) Chronic HFrEF (heart failure with reduced ejection fraction): PLAN: Plan This is a pleasant 78-year-old female with past medical history significant for heart failure with reduced EF (echo from August 2024: EF 40 to 45%, moderate mitralvalve insufficiency, moderate tricuspid valve insufficiency with severe aortic valve stenosis), diabetes mellitus type 2, COPD, A-fib on Eliquis, depression anxiety who was admitted to the hospital November 09 for acute exacerbation of CHF with reduced EF. Chest x-ray showing edema versus consolidation. BNP 56,000. With IV Lasix breathing and edema have both improved. Serum creatinine was 1.5 on admission, serum creatinine 1.5 yesterday and today her creatinine is up to 2.11. IV Lasix has been stopped. Likely SANDRA secondary to overdiuresis. Baseline creatinine has been ranging around 1 to 1.2 mg/dL but we may need to allow for higher baseline serum creatinine to achieve euvolemia. We will obtainUA and urine protein creatinine ratio also obtain renal ultrasound. No acute indication for renal placement therapy; potassium and bicarb acceptable, patientis nonoliguric and volume status appears to be compensated. Further orders forthcoming as hospitalization evolves, thank you for allowing us to participatein the care of Ms. Guillermo. Assessment and plan reviewed with Dr. Kee. HPI Consult Data Date of Consult: 11/11/24 HPI Narrative HPI Narrative: DAYRN GUILLERMO, is a 78 F with past medical history significant for congestive heart failure with reduced EF, diabetes mellitus type 2, A-fib on Eliquis, GERD,depression and anxiety, COPD who presented to the emergency room on November 09 with complaints of worsening lower extremity swelling and difficulty breathing. Workup in the emergency room included chest x-ray showing possible edema, BNP 56,000, patient was admitted for further evaluation and treatment. Nephrology consulted in view of elevated creatinine. Patient reports she has not been followed routinely by nephrology. She does states she saw hunting guide in [place] some years back after she developed cellulitis with kidney injury. She has never required any hemodialysis. Baseline creatinine ranging around 1 to 1.2 mg/dL. On admission creatinine 1.5 and today her creatinine is 2.11. Patient reports breathing improved, edema to lower legs also improved. She is currently on room air. She denies any nausea, vomiting or diarrhea. [facility] Medical History Post-menopausal History of ulceration Gastric reflux History of stress test History of irregular heartbeat Aortic stenosis Lives in snf Wears glasses Wears partial dentures Marijuana use [...] History iron) tablet furosemide 20 mg tablet 40 mg PO QAM 04/28/24 Unknow n History [...] / Time No Known Allergies Allergy Verified 11/09/24 04:29 Family History Mother Alzheimer dementia Breast cancer Heart disease Brother Cystic fibrosis Surgical History History of colonoscopy S/P laminectomy History of tubal ligation Hx of cholecystectomy H/O section Social History Smoking Status: Never smoker alcohol intake: never ROS ROS Narrative As in HPI Physical Exam Narrative Alert and oriented x 3, no apparent distress S1, S2, RRR Breath sounds clear. No wheezes, rhonchi or rales noted. On room air. Abdomen soft, nontender, positive bowel sounds No pitting edema to bilateral lower legs or feet Lab / Micro Data 11/10/24 05:16 11/11/24 05:16 Labs: Laboratory Results - last 24 hr 11/10/24 16:43: POC Glucose 114 H 11/10/24 22:45: POC Glucose 88 11/11/24 05:16: Sodium 140, Potassium 4.5, Chloride 99, Carbon Dioxide 22.8, Anion Gap 18 H, BUN 46 H, Creatinine 2.11 H, Estim Creat Clear Calc 27.55 L, Est GFR (MDRD) Non-Af 24 L, BUN/Creatinine Ratio 21.8 H, Glucose 91, Calcium 9.3 11/11/24 07:01: POC Glucose 68 L Imaging Radiology Impression Chest X-Ray 11/11/24 09:50 IMPRESSION: Residual CHF although there has been improvement. Bibasilar atelectasis. Reading Location: [id number] 11/11/24 1201 <Electronically signed by Jeri CASH> Cosigner Signature (if applicable): 11/12/24 1109 <Electronically signed by Radha Kee MD> CC: Dr. Delgado Amaro, DO~ Signed [facility] Work Phone: 1(197) 216-737708-06-2025 Progress note Author Radha Luxbradly [facility] Note Date/Time November 12, 2024 11: 09am [facility] Medical Records Department [address] [place] [address] Progress Note - Nephrology 11/12/24 1100 MR#: [id number] Acct: [id number] Name: DARYN GUILLERMO Rep #:[id number] : 1945 78 From: Radha glass MD PCP: Dr. Delgado Amaro, Status:ADM IN Location: [place] [address] Subjective Subjective Follow-up on acute kidney injury. Patient is somnolent, easily arousable. Potassium is high, she has received potassium supplement on a daily basis. Patient states that she has gotten sleeping pill last night and feels sleepy today. Objective Data Objective Data Vital Signs: Vital Signs Temp Pulse Resp BP Pulse Ox O2 Del Method 96.1 F L 78 20 H 116/103 H 94 Room Air 11/12/24 10:00 11/12/24 10:00 11/12/24 10:00 11/12/24 10:00 11/12/24 10:00 11/12/24 10:00 Oxygen Delivery Method Room Air Weight: 102.8 kg Body Mass Index (BMI) 36.6 Intake & Output: Intake and Output for Last 24 Hours 11/10/24 11/11/24 11/12/24 23:59 23:59 23:59 Intake Total 1170 / 1170 1570 / 1570 240 / 240 Output Total 850 / 850 770 / 770 Balance 320 / 320 800 / 800 240 / 240 Lab / Micro Data Attestation: I reviewed the patient's lab results. 11/10/24 05:16 11/12/24 07:40 Labs: Laboratory Results - last 24 hr 11/11/24 11:58: POC Glucose 79 11/11/24 12:13: Urine Color Yellow, Urine Clarity Cloudy, Urine pH 5.0, Ur Specific [place] 1.025, Urine Protein 100 H, Urine Glucose (UA) 50 H, Urine Ketones Negative, Urine Occult Blood 25 H, Urine Nitrite Negative, Urine Bilirubin 1 H, Urine Urobilinogen 1 H, Ur Leukocyte Esterase 500 H, Urine RBC 0 SEEN, Urine WBC 25-50 SEEN, Ur Squamous Epith Cells 0 SEEN, Urine Bacteria 3+, Urine Mucus 0 SEEN, U Random Total Protein 89.5 H, Urine Creatinine 173.00, Protein/Creatinin Ratio 517 H 11/11/24 16:37: POC Glucose 111 H 11/11/24 19:35: POC Glucose 93 11/11/24 21:49: POC Glucose 85 11/12/24 05:44: Sodium 136, Potassium 6.3 H*, Chloride 94 L, Carbon Dioxide 17.0L, Anion Gap 25 H, BUN 57 H, Creatinine 3.00 H, Estim Creat Clear Calc 19.32 L, Est GFR (MDRD) Non-Af 16 L, BUN/Creatinine Ratio 18.9, Glucose 104 H, Calcium 9.4 11/12/24 06:34: POC Glucose 110 H 11/12/24 07:40: Sodium 135, Potassium 6.3 H*, Chloride 93 L, Carbon Dioxide 15.5L, Anion Gap 27 H, BUN 55 H, Creatinine 3.05 H, Estim Creat Clear Calc 19.00 L, Est GFR (MDRD) Non-Af 15 L, BUN/Creatinine Ratio 18.0, Glucose 108 H, Calcium 9.3 Radiography Diagnostic Testing: Radiology Impression Renal Ultrasound 11/11/24 11:48 IMPRESSION: 1. No hydronephrosis. 2. Additional description as above. Reading Location: [facility] Physical Exam Const Orientation / Consciousness: oriented to person, oriented to place and oriented to time Nutritional Appearance: obese HEENT normocephalic Head and Scalp: atraumatic Resp no use of accessory muscles Auscultation: diminished lung sounds Cardio regular rate and no rub GI non-tender and non-distended Auscultation: normoactive bowel sounds Extremity Extremity Narrative: Both feet are cyanotic, cool to touch Neuro Sensorium / Orientation: lethargic Psych cooperative Assessment & Plan Assessment/Plan (1) Acute renal insufficiency: PLAN: Acute kidney injury accompanied by metabolic acidosis and as a result of hyperkalemia. Also patient has been on potassium supplement. Calculate fractional excretion of sodium Patient has received Kayexalate Stop potassium supplement Start IV bicarb (2) Hyperkalemia: (3) Acidosis, metabolic: 11/12/24 1109 <Electronically signed by Radha Kee MD> Cosigner Signature (if applicable): CC: ~ Signed [facility] Work Phone: 1(169) 744-765408-06-2025 Consult note [facility] Medical Records Department [address] [place] [address] Consultation - Nephrology 11/11/24 1153 MR#: [id number] Acct: [id number] Name: DARYN GUILLERMO Rep #:[id number] : 1945 78 From: Jeri torrez NP-C PCP: Dr. Delgado Amaro, DO Status:ADM IN Location: [place] [address] Assessment & Plan Assessment/Plan (1) Acute renal insufficiency: (2) Chronic HFrEF (heart failure with reduced ejection fraction): PLAN: Plan This is a pleasant 78-year-old female with past medical history significant for heart failure with reduced EF (echo from August 2024: EF 40 to 45%, moderate mitralvalve insufficiency, moderate tricuspidvalve insufficiency with severe aortic valve stenosis), diabetes mellitus type 2, COPD, A-fib on Eliquis, depression anxiety who was admitted to the hospital November 09 for acute exacerbation of CHF with reduced EF. Chest x-ray showing edema versus consolidation. BNP 56,000. With IV Lasix breathing and edema have both improved. Serum creatinine was 1.5 on admission, serum creatinine 1.5 yesterday and today her creatinine is up to 2.11. IV Lasix has been stopped. Likely SANDRA secondary to overdiuresis. Baseline creatinine has been ranging around 1 to 1.2 mg/dL but we may need to allow for higher baseline serum creatinine to achieve euvolemia. We will obtainUA and urine protein creatinine ratio also obtain renal ultrasound. No acute indication for renal placement therapy; potassium and bicarb acceptable, patientis nonoliguric and volume status appears to be compensated. Further orders forthcoming as hospitalization evolves, thank you for allowing us to participatein the care of Ms. Guillermo.Assessment and plan reviewed with Dr. Kee. HPI Consult Data Date of Consult: 11/11/24 HPI Narrative HPI Narrative: DARYN GUILLERMO, is a 78 F with past medical history significant for congestive heart failure with reduced EF, diabetes mellitus type 2, A-fib on Eliquis, GERD,depression and anxiety, COPD who presented to the emergency room on November 09 with complaints of worsening lower extremity swelling and difficulty breathing. Workup in the emergency room included chest x-ray showing possible edema, BNP 56,000, patient was admitted for further evaluation and treatment. Nephrology consulted in view of elevated creatinine. Patient reports she has not been followed routinely by nephrology. She does states [facility] in [place] some years back after she developed cellulitis with kidney injury. She h as never required any hemodialysis. Baseline creatinine ranging around 1 to 1.2 mg/dL. On admissioncreatinine 1.5 and today her creatinine is 2.11. Patient reports breathing improved, edema to lowerlegs also improved. She is currently on room air. She denies any nausea, vomiting or diarrhea. [facility] Medical History Post-menopausal History of ulceration Gastric reflux History of stress test History of irregular heartbeat Aortic stenosis Lives in snf Wears glasses Wears partial dentures Marijuana use [...] History iron) tablet furosemide 20 mg tablet 40 mg PO QAM 04/28/24 Unknow n History [...] / Time No Known Allergies Allergy Verified 11/09/24 04:29 Family History Mother Alzheimer dementia Breast cancer Heart disease Brother Cystic fibrosis Surgical History History of colonoscopy S/P laminectomy History of tubal ligation Hx of cholecystectomy H/O section Social History Smoking Status: Never smoker alcohol intake: never ROS ROS Narrative As in HPI Physical Exam Narrative Alert and oriented x 3, no apparent distress S1, S2, RRR Breath sounds clear. No wheezes, rhonchi or rales noted. On room air. Abdomen soft, nontender, positive bowel sounds No pitting edema to bilateral lower legs or feet Lab / Micro Data 11/10/24 05:16 11/11/24 05:16 Labs: Laboratory Results - last 24 hr 11/10/24 16:43: POC Glucose 114 H 11/10/24 22:45: POC Glucose 88 11/11/24 05:16: Sodium 140, Potassium 4.5, Chloride 99, Carbon Dioxide 22.8, Anion Gap 18 H, BUN 46H, Creatinine 2.11 H, Estim Creat Clear Calc 27.55 L, Est GFR (MDRD) Non-Af 24 L, BUN/Creatinine Ratio 21.8 H, Glucose 91, Calcium 9.3 11/11/24 07:01: POC Glucose 68 L Imaging Radiology Impression Chest X-Ray 11/11/24 09:50 IMPRESSION: Residual CHF although there has been improvement. Bibasilar atelectasis. Reading Location: [id number] 11/11/24 1201 Cosigner Signature (if applicable): 11/12/24 1109 CC: Dr. Delgado Amaro DO~ Signed [place] [id number] Progress note [facility] Medical Records Department [address] [place] [address] Progress Note - Nephrology 11/12/24 1100 MR#: [id number] Acct: [id number] Name: DARYN GUILLERMO Rep #:[id number] : 1945 78 From: Radha glass MD PCP: Dr. Delgado Amaro, Status:ADM IN Location: [place] [address] Subjective Subjective Follow-up on acute kidney injury. Patient is somnolent, easily arousable. Potassium is high, she has received potassium supplement on a daily basis. Patient states that she has gotten sleeping pill last night and feels sleepy today. Objective Data Objective Data Vital Signs: Vital Signs Temp Pulse Resp BP Pulse Ox O2 Del Method 96.1 F L 78 20 H 116/103 H 94 Room Air 11/12/24 10:00 11/12/24 10:00 11/12/24 10:00 11/12/24 10:00 11/12/24 10:00 11/12/24 10:00 Oxygen Delivery Method Room Air Weight: 102.8 kg Body Mass Index (BMI) 36.6 Intake & Output: Intake and Output for Last 24 Hours 11/10/24 11/11/24 11/12/24 23:59 23:59 23:59 Intake Total 1170 / 1170 1570 / 1570 240 / 240 Output Total 850 / 850 770 / 770 Balance 320 / 320 800 / 800 240 / 240 Lab / Micro Data Attestation: I reviewed the patient's lab results. 11/10/24 05:16 11/12/24 07:40 Labs: Laboratory Results - last 24 hr 11/11/24 11:58: POC Glucose 79 11/11/24 12:13: Urine Color Yellow, Urine Clarity Cloudy, Urine pH 5.0, Ur Specific [place] 1.025, Urine Protein 100 H, Urine Glucose (UA) 50 H, Urine Ketones Negative, Urine Occult Blood 25 H, UrineNitrite Negative, Urine Bilirubin 1 H, Urine Urobilinogen 1 H, Ur Leukocyte Esterase 500 H, Urine RBC 0 SEEN, Urine WBC 25-50 SEEN, Ur Squamous Epith Cells 0 SEEN, Urine Bacteria 3+, Urine Mucus 0 SEEN, U Random Total Protein 89.5 H, Urine Creatinine 173.00, Protein/Creatinin Ratio 517 H 11/11/24 16:37: POC Glucose 111 H 11/11/24 19:35: POC Glucose 93 11/11/24 21:49: POC Glucose 85 11/12/24 05:44: Sodium 136, Potassium 6.3 H*, Chloride 94 L, Carbon Dioxide 17.0L, Anion Gap 25 H, BUN 57 H, Creatinine 3.00 H, Estim Creat Clear Calc 19.32 L, Est GFR (MDRD) Non-Af 16 L, BUN/Creatinine Ratio 18.9, Glucose 104 H, Calcium 9.4 11/12/24 06:34: POC Glucose 110 H 11/12/24 07:40: Sodium 135, Potassium 6.3 H*, Chloride 93 L, Carbon Dioxide 15.5L, Anion Gap 27 H, BUN 55 H, Creatinine 3.05 H, Estim Creat Clear Calc 19.00 L, Est GFR (MDRD) Non-Af 15 L, BUN/Creatinine Ratio 18.0, Glucose 108 H, Calcium 9.3 Radiography Diagnostic Testing: Radiology Impression Renal Ultrasound 11/11/24 11:48 IMPRESSION: 1. No hydronephrosis. 2. Additional description as above. Reading Location: [facility] Physical Exam Const Orientation / Consciousness: oriented to person, oriented to place and oriented to time Nutritional Appearance: obese HEENT normocephalic Head and Scalp: atraumatic Resp no use of accessory muscles Auscultation: diminished lung sounds Cardio regular rate and no rub GI non-tender and non-distended Auscultation: normoactive bowel sounds Extremity Extremity Narrative: Both feet are cyanotic, cool to touch Neuro Sensorium / Orientation: lethargic Psych cooperative Assessment & Plan Assessment/Plan (1) Acute renal insufficiency: PLAN: Acute kidney injury accompanied by metabolic acidosis and as a result of hyperkalemia. Also patient has been on potassium supplement. Calculate fractional excretion of sodium Patient has received Kayexalate Stop potassium supplement Start IV bicarb (2) Hyperkalemia: (3) Acidosis, metabolic: 11/12/24 1109 Cosigner Signature (if applicable): CC: ~ Signed [facility] [id number] Radiology Diagnostic study note [facility] Imaging Services [address] [place] [id number] Kidney and Bladder MR#: [id number] Acct: [id number] Name: DARYN GUILLERMO Rep #: [id number] : 1945 F 78 From: Danisha Ruiz MD PCP: Dr. Delgado Amaro, DO Status: ADM IN Study:Kidney and Bladder Date of Exam: 0 11/11/24 Exam# [id number] Ordering Dr: Jeri Villaseñor i PROCEDURE: KIDNEY AND BLADDER, 11/11/2024 REASON FOR EXAM: SANDRA TECHNIQUE: Grayscale and color doppler ultrasound of the kidneys and bladder was performed. COMPARISON: None FINDINGS: Exam limited by reported patient condition as well as soft tissue attenuation and shadowing bowel gas. Right kidney: 9.0 cm in length. 10 x 8 x 7 mm probable cyst. No visualized calculus or hydronephrosis. Left kidney: 8.0 cm in length. No visualized mass, calculus, or hydronephrosis. Bladder: Underdistended and suboptimally evaluated; grossly unremarkable. Estimated volume 14 mL. Other: None. US/Kidney and Bladder IMPRESSION: 1. No hydronephrosis. 2. Additional description as above. Reading Location: [facility] CC: FACTORY WORKER-C Jeri Rowland; Dr. Delgado Amaro DO ~ Lpn Or Medical Assistant: Signed [facility]08-05-2025 Radiology Diagnostic study note [facility] Imaging Services [address] [place] [address] Chest 1 View (Portable) MR#: [id number] Acct: [id number] Name: DARYN GUILLERMO Rep #: [id number] : 1945 F 78 From: Сергей Wolff MD PCP: Dr. Delgado Amaro, DO Status: ADM IN Study:Chest 1 View (Portable) Date of Exam: 11/11/24 Exam# [id number] Ordering Dr: Edmundo Ron DO PROCEDURE: CHEST 1 VIEW (PORTABLE) 11/11/2024 REASON FOR EXAM: CHF TECHNIQUE: Frontal view of the chest. COMPARISON: Prior study dated November 09, 2024. FINDINGS: Hardware: EKG electrodes are seen. Heart: Cardiomegaly. Lungs: Residual vascular congestion and CHF although there has been mild improvement. Mild degree of persistent bibasilar atelectasis. Bones: Degenerative changes are identified within the thoracic spine. Other: RAD/Chest 1 View (Portable) IMPRESSION: Residual CHF although there has been improvement. Bibasilar atelectasis. Reading Location: [id number] CC: Dr. Edmundo Monge DO; Dr. Delgado Amaro DO ~ Lpn Or Medical Assistant: Signed [facility]08-04-2025 Progress note Author Edmundo Mogne [facility] Note Date/Time November 10, 2024 7:2 2pm [facility] Medical Records Department [address] [place] [address] Progress Note - Hospitalist 11/10/241914 MR#: [id number] Acct: [id number] Name: DARYN GUILLERMO Rep #:[id number] : 1945 78 From: Edmundo Monge DO PCP: Dr. Delgado Amaro DO Status:ADM IN Location: [place] [address] Reason for Visit Chief Complaint: Lower extremity swelling and shortness of breath Subjective Subjective Patient was seen and examined today, she is on room air at this time. Patient does not complain of any chest pain or shortness of breath at rest Objective Data Objective Data Vital Signs: Vital Signs Temp Pulse Resp BP Pulse Ox O2 Del Method 97.7 F L 70 18 93/79 98 Room Air 11/10/24 14:47 11/10/24 14:47 11/10/24 14:47 11/10/24 14:47 11/10/24 14:47 11/10/24 14:47 Oxygen Delivery Method Room Air Weight: 103 kg Body Mass Index (BMI) 36.6 Intake & Output: Intake and Output for Last 24 Hours 11/08/24 11/09/24 11/10/24 23:59 23:59 23:59 Intake Total 480 / 780 1170 / 1170 Output Total 1150 / 1550 850 / 850 Balance -670 / -770 320 / 320 Lab / Micro Data 11/10/24 05:16 11/10/24 05:16 Labs: Laboratory Results - last 24 hr 11/09/24 20:14: POC Glucose 126 H 11/10/24 05:16: WBC 10.7, RBC 4.12 L, Hgb 10.9 L, Hct 36.0 L, MCV 87.4, MCH 26.5L, MCHC 30.3 L, RDW Std Deviation 53.1 H, RDW Coeff of Josiah 16.8 H, Plt Count 257, MPV 9.8, Immature Gran % (Auto) 0.500, Neut % (Auto) 64.5, Lymph % (Auto) 27.0, [place] % (Auto) 6.3, Eos % (Auto) 0.8, Baso % (Auto) 0.9, Absolute Neuts (auto) 6.9, Absolute Lymphs (auto) 2.88, Nucleated RBC % 0, Sodium 141, Potassium 3.6, Chloride 99, Carbon Dioxide 24.5, Anion Gap 17 H, BUN 37 H, Creatinine 1.57 H, Estim Creat Clear Calc 36.95 L, Est GFR (MDRD) Non-Af 34 L, BUN/Creatinine Ratio 23.8 H, Glucose 116 H, Calcium 9.8, Triglycerides 90, Cholesterol 156, LDL Cholesterol, Calc 80, VLDL Cholesterol 18, HDL Cholesterol 58, Cholesterol/HDL Ratio 2.69 11/10/24 05:55: Magnesium 2.1 11/10/24 06:11: POC Glucose 116 H 11/10/24 11:31: POC Glucose 181 H Physical Exam Const alert and no apparent distress General Appearance: cooperative, well kempt and well developed Orientation / Consciousness: awake, oriented to person and oriented to place HEENT normocephalic, head/scalp atraumatic and moist oral mucous membranes Eyes PERRL, EOMs intact bilaterally and conjunctivae normal Neck supple, no JVD, thyroid normal and no carotid bruits General: trachea midline Resp normal respiratory effort, no retractions, no use of accessory muscles and clearto auscultation bilaterally Auscultation: Negative for rales, rhonchi or wheezes Cardio S1 normal heart sound, S2 normal heart sound, no rub and no gallops Cardio Narrative: Heart rate and rhythm is irregular GI normal to inspection, nondistended, normoactive bowel sounds, soft to palpation,non-tender and non-distended Extremity no clubbing, cyanosis or edema Skin no rashes or lesions noted General Skin Exam: no breakdown Neuro CN's II-XII intact bilaterally, moves all extremities, no focal motor deficits and no sensory deficits noted Sensorium / Orientation: awake, alert, oriented to person and oriented to place Speech: speech normal Psych affect normal Assessment & Plan Assessment/Plan (1) CHF exacerbation: PLAN: Plan 1. Acute exacerbation of chronic congestive heart failure with reduced ejectionfraction-patient will remain on IV Lasix, labs will be monitored #2 acute kidney injury-patient's creatinine today was 1.57-it is unchanged from yesterday's creatinine. BMP will be repeated tomorrow #3 chronic atrial fibrillation-patient will remain on her current medications including anticoagulation with Eliquis and rate limiting agents #4 type 2 diabetes-blood sugars will be monitored, sliding scale insulin be administered as needed Total clinical time spent by myself addressing the patient's medical issues, reviewing all of her data, and collaborating with patient's care team: 35-minute Charges/Coding Visit Charges Inpatient E&M: 35348 Subs Hosp L2 11/10/241921 <Electronically signed by Edmundo Monge DO> Cosigner Signature (if applicable): CC: ~ Signed [facility] Work Phone: 1(208) 658-123508-04-2025 Progress note [facility] Medical Records Department [address] [place] [address] Progress Note - Hospitalist 11/10/241914 MR#: [id number] Acct: [id number] Name: DARYN GUILLERMO Rep #:[id number] : 1945 78 From: Edmundo Monge DO PCP: Dr. Delgado Amaro, DO Status:ADM IN Location: [place] [address] Reason for Visit Chief Complaint: Lower extremity swelling and shortness of breath Subjective Subjective Patient was seen and examined today, she is on room air at this time. Patient does not complain of any chest pain or shortness of breath at rest Objective Data Objective Data Vital Signs: Vital Signs Temp Pulse Resp BP Pulse Ox O2 Del Method 97.7 F L 70 18 93/79 98 Room Air 11/10/24 14:47 11/10/24 14:47 11/10/24 14:47 11/10/24 14:47 11/10/24 14:47 11/10/24 14:47 Oxygen Delivery Method Room Air Weight: 103 kg Body Mass Index (BMI) 36.6 Intake & Output: Intake and Output for Last 24 Hours 11/08/24 11/09/24 11/10/24 23:59 23:59 23:59 Intake Total 480 / 780 1170 / 1170 Output Total 1150 / 1550 850 / 850 Balance -670 / -770 320 / 320 Lab / Micro Data 11/10/24 05:16 11/10/24 05:16 Labs: Laboratory Results - last 24 hr 11/09/24 20:14: POC Glucose 126 H 11/10/24 05:16: WBC 10.7, RBC 4.12 L, Hgb 10.9 L, Hct 36.0 L, MCV 87.4, MCH 26.5L, MCHC 30.3 L, RDWStd Deviation 53.1 H, RDW Coeff of Josiah 16.8 H, Plt Count 257, MPV 9.8, Immature Gran % (Auto) 0.500, Neut % (Auto) 64.5, Lymph % (Auto) 27.0, [place] % (Auto) 6.3, Eos % (Auto) 0.8, Baso % (Auto) 0.9, Absolute Neuts (auto) 6.9, Absolute Lymphs (auto) 2.88, Nucleated RBC % 0, Sodium 141, Potassium 3.6,Chloride 99, Carbon Dioxide 24.5, Anion Gap 17 H, BUN 37 H, Creatinine 1.57 H, Estim Creat Clear Calc 36.95 L, Est GFR (MDRD) Non-Af 34 L, BUN/Creatinine Ratio 23.8 H, Glucose 116 H, Calcium 9.8, Triglycerides 90, Cholesterol 156, LDL Cholesterol, Calc 80, VLDL Cholesterol 18, HDL Cholesterol 58, Cholesterol/HDL Ratio 2.69 11/10/24 05:55: Magnesium 2.1 08/04/25 06:11: POC Glucose 116 H 08/04/25 11:31: POC Glucose 181 H Physical Exam Const alert and no apparent distress General Appearance: cooperative, well kempt and well developed Orientation / Consciousness: awake, oriented to person and oriented to place HEENT normocephalic, head/scalp atraumatic and moist oral mucous membranes Eyes PERRL, EOMs intact bilaterally and conjunctivae normal Neck supple, no JVD, thyroid normal and no carotid bruits General: trachea midline Resp normal respiratory effort, no retractions, no use of accessory muscles and clearto auscultation bilaterally Auscultation: Negative for rales, rhonchi or wheezes Cardio S1 normal heart sound, S2 normal heart sound, no rub and no gallops Cardio Narrative: Heart rate and rhythm is irregular GI normal to inspection, nondistended, normoactive bowel sounds, soft to palpation,non-tender and non-distended Extremity no clubbing, cyanosis or edema Skin no rashes or lesions noted General Skin Exam: no breakdown Neuro CN's II-XII intact bilaterally, moves all extremities, no focal motor deficits and no sensory deficits noted Sensorium / Orientation: awake, alert, oriented to person and oriented to place Speech: speech normal Psych affect normal Assessment & Plan Assessment/Plan (1) CHF exacerbation: PLAN: Plan 1. Acute exacerbation of chronic congestive heart failure with reduced ejectionfraction-patient will remain on IV Lasix, labs will be monitored #2 acute kidney injury-patient's creatinine today was 1.57-it is unchanged from yesterday's creatinine. BMP will be repeated tomorrow #3 chronic atrial fibrillation-patient will remain on her current medications including anticoagulation with Eliquis and rate limiting agents #4 type 2 diabetes-blood sugars will be monitored, sliding scale insulin be administered as needed Total clinical time spent by myself addressing the patient's medical issues, reviewing all of her data, and collaborating with patient's care team: 35-minute Charges/Coding Visit Charges Inpatient E&M: 48527 Subs Hosp L2 11/10/241921 Cosigner Signature (if applicable): CC: ~ Signed [facility]08-03-2025 History and physical note Author Emily Cummings [facility] Note Date/Time November 09, 2024 7:5 7am [facility] Medical Records Department [address] [place] [address] H&P Exam - Hospitalist 11/09/24 0747 MR#: [id number] Acct: [id number] Name: DARYN GUILLERMO Rep #:[id number] : 1945 78 From: Emily Cummings MD PCP: Dr. Delgado Amaro, DO Status:ADM IN Location: [facility] [id number] HPI - General General Date of Admission: 11/09/24 Date of Service: 11/09/24 Chief Complaint: Lower extremity swelling and shortness of breath HPI Narrative DARYN GUILLERMO, is a 78-year-old female history of heart failure with reduced ejection fraction, diabetes, A-fib on Eliquis, COPD, GERD, depression and anxiety who presented [facility] ED 11/09/2024 due to increasing lower extremity swelling, weight gain, orthopnea and worsening dyspnea. She hasa fairly recent diagnosis of heart failure and was on 20 mg of Lasix, due to these complaints the facility she has had increased her Lasix to 40 mg for the last 3 days however she has not had any improvement. Has a chronic cough from COPD but this has not changed at all from baseline and no other infectious symptoms. In ED temp 97.5, heart rate 102 with a blood pressure 126/81, respiratory rate 22 with pulse ox 98% on room air. CBC with hemoglobin 10.5, overall similar to previous, normal white blood cell count with no left shift. Patient with creatinine of 1.58 with a baseline of around 1.19, BNP 55,945 with chest x-ray showing possible asymmetric edema or consolidation in the right central lung and recommended follow-up imaging. Patient diagnosis heart failureexacerbation, given IV Lasix and hospitalist contacted for admission. Patient seen at bedside. She reports increased swelling in her lower extremities and shortness of breath over the past several days despite the increase in her Lasix, has a chronic cough that has not changed, denies any fevers or chills, ROS otherwise negative. Discussed with patient and [facility] coming [facility] for routine evaluation for options for her aortic stenosis. Discussed that she is vitally stable and it does seem reasonable to keep her here and give IV Lasix and discharge for her to follow-upoutpatient even if her appointment would need to be moved versus transfer. Doesnot seem she needs emergent transfer for acute valve intervention given her stability. Patient agrees and prefers to stay here and follow-up outpatient with Steven on discharge. [facility] Medical History Post-menopausal History of ulceration Gastric reflux History of stress test History of irregular heartbeat Aortic stenosis Lives in snf Wears glasses Wears partial dentures Marijuana use [...] History iron) tablet furosemide 20 mg tablet 40 mg PO QAM 04/28/24 Unknow n History [...] / Time No Known Allergies Allergy Verified 11/09/24 04:29 Family History Mother Alzheimer dementia Breast cancer Heart disease Brother Cystic fibrosis Surgical History History of colonoscopy S/P laminectomy History of tubal ligation Hx of cholecystectomy H/O section Social History Smoking Status: Never smoker alcohol intake: never ROS ROS Narrative General: Denies fever/chills HENT: Denies headache, denies stuffy nose, denies sore throat EYES: Denies changes in vision Resp: Chronic cough, has had some increased shortness of breath Cardiac: Denies chest pain GI: Denies abdominal pain, denies changes in bowel, denies nausea/vomiting : Denies changes in urination Extremity: Increased lower extremity swelling MSK: Denies weakness Neuro: Denies any numbness/tingling Heme: Denies any bleeding or bruising Skin: Denies rashes Psychiatric: No complaints voiced Vital Signs Vital Signs Vital Signs: 11/09/24 04:23 11/09/24 04:46 11/09/24 05:23 Temperature 97.5 F L Temperature Source Oral Pulse Rate 102 H 100 Respiratory Rate 22 H 22 H Respiratory Effort Normal Blood Pressure 126/81 H 98/72 Blood Pressure Mean 96 80 Pulse Ox 98 95 Oxygen Delivery Method Room Air Room Air 11/09/24 06:00 11/09/24 06:45 11/09/24 07:00 Temperature 98.6 F Temperature Source Pulse Rate 110 H 94 105 H Respiratory Rate 22 H 20 H 18 Respiratory Effort Blood Pressure 122/87 H 121/89 H 112/91 H Blood Pressure Mean 98 99 98 Pulse Ox 100 95 94 Oxygen Delivery Method Room Air Room Air Weight Weight: 109.7 kg Body Mass Index (BMI) 39.0 Physical Exam Narrative General: Alert, oriented, no apparent distress HEENT: Atraumatic, normocephalic Eyes: Anicteric, normal conjunctiva, extraocular movements grossly intact Neck: Supple Respiratory: Crackles at bases bilaterally, normal respiratory effort Cardiovascular: Irregularly irregular GI: Soft, nontender, nondistended Extremities: 2+ pitting edema at both lower extremities to hips Musculoskeletal: Moving all extremities Neuro: No overt focal neurological deficits Skin: No rashes appreciated Psych: Cooperative Results Lab / Micro Data 11/09/24 04:35 11/09/24 04:35 Labs: Laboratory Results - last 24 hr 11/09/24 04:35: WBC 8.8, RBC 3.93 L, Hgb 10.5 L, Hct 34.2 L, MCV 87.0, MCH 26.7 L, MCHC 30.7 L, RDW Std Deviation 53.2 H, RDW Coeff of Josiah 16.7 H, Plt Count 292, MPV 10.5, Immature Gran % (Auto) 0.500, Neut % (Auto) 57.8, Lymph % (Auto) 32.8, [place] % (Auto) 6.5, Eos % (Auto) 1.6, Baso % (Auto) 0.8, Absolute Neuts (auto) 5.1, Absolute Lymphs (auto) 2.88, Nucleated RBC % 0, Sodium 138, Potassium 4.5, Chloride 99, Carbon Dioxide 24.8, Anion Gap 15, BUN 36 H, Creatinine 1.58 H, Estim Creat Clear Calc 38.00 L, Est GFR (MDRD) Non-Af 34 L, BUN/Creatinine Ratio 22.7 H, Glucose 133 H, Cal[place] 9.1, [place] [address] H Imaging Radiology Impression Chest X-Ray 11/09/24 05:10 IMPRESSION: Possible asymmetric edema or consolidation in the right central lung. Recommendfollow up imaging. Reading Location: [facility] Assessment & Plan Assessment/Plan (1) CHF exacerbation: PLAN: Plan #Acute exacerbation of chronic heart failure with reduced ejection fraction -Admit to telemetry -proBNP 55,945 -CXR showed edema versus consolidation, patient with no infectious symptoms whatsoever and clinical picture consistent with CHF, chest x-ray queried asymmetric edema but reviewing x-ray it looks consistent overall with CHF, does have a previous x-ray from 2020 in which the right lung was more opacified than the left, after patient begins diuresing with IV Lasix could consider repeat chest x-ray as repeat imaging was reportedly recommended -Continue IV lasix, will start with 40 IV daily and can further adjust dosing astolerated but would avoid overaggressive diuresis too quickly given her aortic stenosis -Last echo 08/13/2024 with mild to moderate global left ventricular systolic dysfunction with EF estimated to be 40 to 45% and noted diastolic dysfunction, moderate mitral valve insufficiency and moderate tricuspid valve insufficiency with severe aortic valve stenosis, RVSP of 62 -Of note she had a stress test around the same time which was negative for ischemia - No repeat echo ordered given previous echo was less than 3 months ago -Does follow with [facility] on an outpatient basis and was last seen 10/09/2024 -Daily weights, I's and O's -Fluid restriction, heart healthy diet #SANDRA - Suspect cardiorenal - Baseline creatinine around 1.19, today 1.58 - Suspect this will improve with IV diuresis - Repeat in the a.m., avoid nephrotoxic agents as able # Severe aortic valve stenosis - Patient already scheduled to follow-up with [facility] for her heart valve in November, she reports this is on Sunday - Patient vitally stable and not hypoxic - Suspect she will just need IV diuresis for improvement in symptoms and then can be discharged to follow-up with [facility] for outpatient evaluation -There does not seem to be indication for transfer for acute intervention, did discuss options with patient of staying here for IV diuresis and follow-up outpatient versus transfer if she strongly desired that, patient prefers to stayhere and follow-up outpatient and verbalizes her understanding of this plan, do feel this is reasonable #GERD -Continue PPI # Chronic Atrial Fibrillation -Rate control: Coreg -Anticoagulation: Eliquis -Does have frequent ectopy, continue Coreg and will check mag #Type 2 diabetes mellitus -Glucose checks and sliding scale insulin #Hx COPD/asthma - As needed albuterol -Incentive spirometer #Depression/anxiety -Continue home medications #DVT ppx: 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 Emily Cummings MD; Dr. Delgado Amaro DO~ Signed [facility] Work Phone: [phone] 137-371708-03-2025 Discharge summary Author Kenyon Shin [facility] Note Date/Time November 09, 2024 6:4 5am [facility] Medical Records Department [address] [place] [address] Emergency Department Summary 11/09/24 MR#: [id number] Acct: [id number] Name: DARYN GUILLERMO Rep #:[id number] : 1945 78 From: Kenyon Drew PCP: Dr. Delgado Amaro, DO Status:REG ER Location: ED HPI History of Present Illness Chief Complaint: Shortness of Breath Informant: patient Narrative Narrative: Worsening dyspnea, orthopnea or leg swelling past few days. Diagnosed recent heart failure on Lasix daily. Wheelchair for transport. She does not wear oxygen. Chronic cough nothing worsening COPD diagnosis secondary to exposure from her spouse. No chest pains. Facility increase her Lasix to 40 mg of Lasix3 days. She was on 20 previously. Prior similar symptoms: Yes PFSH PFSH Medical History Post-menopausal History of ulceration Gastric reflux History of stress test History of irregular heartbeat Aortic stenosis Lives in snf Wears glasses Wears partial dentures Marijuana use [...] History iron) tablet furosemide 20 mg tablet 40 mg PO QAM 04/28/24 Unknow n History [...] / Time No Known Allergies Allergy Verified 11/09/24 04:29 Family History Mother Alzheimer dementia Breast cancer Heart disease Brother Cystic fibrosis Surgical History History of colonoscopy S/P laminectomy History of tubal ligation Hx of cholecystectomy H/O section Social History Smoking Status: Never smoker alcohol intake: never ROS ROS ED Constitutional Constitutional ED: Denies chills, fever(s) or sweats ENT ENT ED: Denies sore throat Cardiovascular Cardiovascular: Reports leg edema and orthopnea; Denies chest pain, palpitationsor racing heartbeat Respiratory/Chest Respiratory/Chest: Reports dyspnea and orthopnea; Denies cough or dyspnea on exertion Gastrointestinal Gastrointestinal: Denies abdominal pain, diarrhea, nausea or vomiting Genitourinary Genitourinary ED: Denies dysuria, hematuria or urinary frequency Musculoskeletal Musculoskeletal: Denies back pain, extremity pain or neck pain Integumentary Denies rash or wounds Neurologic Neurologic: Denies headache(s), paresthesias or weakness EXAM Physical Exam Const Vital Signs: 11/09/24 04:23 11/09/24 04:46 11/09/24 05:23 Temperature 97.5 F L Temperature Source Oral Pulse Rate 102 H 100 Respiratory Rate 22 H 22 H Respiratory Effort Normal Blood Pressure 126/81 H 98/72 Blood Pressure Mean 96 80 Pulse Ox 98 95 Oxygen Delivery Method Room Air Room Air 11/09/24 06:00 Temperature Temperature Source Pulse Rate 110 H Respiratory Rate 22 H Respiratory Effort Blood Pressure 122/87 H Blood Pressure Mean 98 Pulse Ox 100 Oxygen Delivery Method Room Air Positive well nourished and well developed Constitutional Narrative: Nasal cannula no distress. General Appearance ED: well developed and NAD HEENT Reports moist mucous membranes normocephalic and atraumatic Eyes General Eye ED: Yes normal appearance of both eyes Neck full ROM Chest Wall Chest: Negative for tenderness Resp normal respiratory effort and normal air movement Effort and Inspection: symmetric chest movement; Negative for respiratory distress Cardio regular rate and no murmurs Peripheral Pulses: pulses 2+ throughout GI normal to inspection, nondistended, normoactive bowel sounds and non-tender Palpation: Negative for guarding or rebound tenderness present Extremity normal to inspection Extremity Narrative: 2+ lower extremity edema. No calf tenderness. Pulses intact distally. General Extremety ED: Yes edema; Negative for tenderness General Extremity: edema Neuro oriented x3 and no sensory deficits noted Sensorium / Orientation: awake and alert Skin no rashes or lesions noted and no wounds MDM MDM MDM Narrative Medical decision making narrative: Interventions / MDM: Differential diagnosis: CHF exacerbation, failed outpatient therapy, renal insufficiency, chronic A-fib Diagnosis considered but do not suspect: N/A My EKG interpretation: A-fib rate of 97, no ST changes. PVC noted. Imaging independently reviewed and interpreted by myself: 1 view chest x-ray asymmetric edema, per radiology possible consolidation. No new cough or concerns for pneumonia. External documents reviewed: Echocardiogram August 2024 EF of 40 to 45%. Creatinine 1.19 in September 2024. Test considered but not ordered:N/A ED course: History of CHF worsening dyspnea orthopnea with leg swelling. No acute distress. She is a nasal cannula however presented 90% [facility] will check BNP and chest x-ray. EKG rate controlled A- fib. She is on chronic Eliquis. 0640: Chest x-ray right-sided edema, BNP 55,000 creatinine up to 1.58 up from 1.91 in September. She is ordered for IV Lasix to 40 mg. Her weight today is 109.7. Reviewing records 9 days ago had a weight of 94 kg. She has had a 15 kg weightgain 9 days with increasing of her Lasix to 40 mg over 3 days as an outpatient. Patient failing outpatient therapy with worsening renal insufficiency. I discussed with hospitalist Dr. Milton for admission. Re-evaluation: stable Disposition discussed with patient/family/significant other: Patient Case discussed with consulting clinician: Hospitalist This note was generated with SV[employer] dictation software. It may contain incorrectwords, spelling, and punctuation that were not noted in checking the note beforesigning. Lab Data Attestation: I reviewed the patient's lab results. Labs: Laboratory Results - last 24 hr 11/09/24 04:35 WBC 8.8 RBC 3.93 L Hgb 10.5 L Hct 34.2 L MCV 87.0 MCH 26.7 L MCHC 30.7 L RDW Std Deviation 53.2 H RDW Coeff of Josiah 16.7 H Plt Count 292 MPV 10.5 Immature Gran % (Auto) 0.500 Neut % (Auto) 57.8 Lymph % (Auto) 32.8 [place] % (Auto) 6.5 Eos % (Auto) 1.6 Baso % (Auto) 0.8 Absolute Neuts (auto) 5.1 Absolute Lymphs (auto) 2.88 Nucleated RBC % 0 Sodium 138 Potassium 4.5 Chloride 99 Carbon Dioxide 24.8 Anion Gap 15 BUN 36 H Creatinine 1.58 H Estim Creat Clear Calc 38.00 L Est GFR (MDRD) Non-Af 34 L BUN/Creatinine Ratio 22.7 H Glucose 133 H Calcium 9.1 [place] [address] H Radiography Diagnostic Testing: Clinical Impression(s) from Imaging Studies Chest X-Ray 11/09/24 05:10 IMPRESSION: Possible asymmetric edema or consolidation in the right central lung. Recommendfollow up imaging. Reading Location: [place] [address] Discharge Plan Dx/Rx/DC Orders Clinical Impression: CHF exacerbation, Acute renal insufficiency, Failure of outpatient treatment, A- fib, Chronic anticoagulation Disposition Disposition: Acute Care Hospital [facility] What to do if you have Problems For any increased pain, shortness of breath, bleeding, nausea or vomiting, chestpain, or any unexpected problems, contact your Primary Care Provider. Call [facility] ([phone]) or report to the closest Emergency Room. Call 911 if necessary. 11/09/24 0645 <Electronically signed by Kenyon Drew> Cosigner Signature (if applicable): CC: Dr. Delgado Amaro DO ~ Signed [facility] Work Phone: 1(555) 148-308908-03-2025 History and physical note [facility] Medical Records Department [address] [place] [address] H&P Exam - Hospitalist 11/09/24 0747 MR#: [id number] Acct: [id number] Name: DARYN GUILLERMO BLANE Rep #:[id number] : 1945 78 From: Eimly Cummings MD PCP: Dr. Delgado Amaro DO Status:ADM [facility] - General General Date of Admission: 11/09/24 Date of Service: 11/09/24 Chief Complaint: Lower extremity swelling and shortness of breath HPI Narrative DARYN GUILLERMO, is a 78-year-old female history of heart failure with reduced ejection fraction, diabetes, A-fib on Eliquis, COPD, GERD, depression and anxiety [facility] due to increasing lower extremity swelling, weight gain, orthopnea and worsening dyspnea. She hasa fairly recent diagnosis of heart failure and was on 20 mg of Lasix, due to these complaints the facility she has had increased her Lasix to 40 mg for the last 3 days however she has not had any improvement. Has a chronic cough from COPD but this has not changed at all from baseline and no other infectious symptoms. In ED temp 97.5, heart rate 102 with a blood pressure 126/81, respiratory rate 22 with pulse ox 98% on room air. CBC with hemoglobin 10.5, overall similar to previous, normal white blood cell count with no left shift. Patient with creatinine of 1.58 with a baseline of around 1.19, BNP 55,945 with chest x-ray showing possible asymmetric edema or consolidation in the right central lung and recommended follow-up imaging. Patient diagnosis heart failureexacerbation, given IV Lasix and hospitalist contacted for admission. Patient seen at bedside. She reports increased swelling in her lower extremities and shortness of breath over the past several days despite the increase in her Lasix, has a chronic cough that has not changed, denies any fevers or chills, ROS otherwise negative. Discussed with patient and [facility] this coming Sunday for routine evaluation for options for her aortic stenosis. Discussed that she is vitally stable and it does seem reasonable to keep her here and give IV Lasix and discharge for her to follow-upoutpatient even if her appointment would need to be moved versus transfer. Doesnot seem she needs emergent transfer for acute valve intervention given her stability. Patient agrees and prefers to stay here and follow-up outpatient with [place] on discharge. [facility] Medical History Post-menopausal History of ulceration Gastric reflux History of stress test History of irregular heartbeat Aortic stenosis Lives in snf Wears glasses Wears partial dentures Marijuana use [...] History iron) tablet furosemide 20 mg tablet 40 mg PO QAM 04/28/24 Unknow n History [...] / Time No Known Allergies Allergy Verified 11/09/24 04:29 Family History Mother Alzheimer dementia Breast cancer Heart disease Brother Cystic fibrosis Surgical History History of colonoscopy S/P laminectomy History of tubal ligation Hx of cholecystectomy H/O section Social History Smoking Status: Never smoker alcohol intake: never ROS ROS Narrative General: Denies fever/chills HENT: Denies headache, denies stuffy nose, denies sore throat EYES: Denies changes in vision Resp: Chronic cough, has had some increased shortness of breath Cardiac: Denies chest pain GI: Denies abdominal pain, denies changes in bowel, denies nausea/vomiting : Denies changes in urination Extremity: Increased lower extremity swelling MSK: Denies weakness Neuro: Denies any numbness/tingling Heme: Denies any bleeding or bruising Skin: Denies rashes Psychiatric: No complaints voiced Vital Signs Vital Signs Vital Signs: 11/09/24 04:23 11/09/24 04:46 11/09/24 05:23 Temperature 97.5 F L Temperature Source Oral Pulse Rate 102 H 100 Respiratory Rate 22 H 22 H Respiratory Effort Normal Blood Pressure 126/81 H 98/72 Blood Pressure Mean 96 80 Pulse Ox 98 95 Oxygen Delivery Method Room Air Room Air 11/09/24 06:00 11/09/24 06:45 11/09/24 07:00 Temperature 98.6 F Temperature Source Pulse Rate 110 H 94 105 H Respiratory Rate 22 H 20 H 18 Respiratory Effort Blood Pressure 122/87 H 121/89 H 112/91 H Blood Pressure Mean 98 99 98 Pulse Ox 100 95 94 Oxygen Delivery Method Room Air Room Air Weight Weight: 109.7 kg Body Mass Index (BMI) 39.0 Physical Exam Narrative General: Alert, oriented, no apparent distress HEENT: Atraumatic, normocephalic Eyes: Anicteric, normal conjunctiva, extraocular movements grossly intact Neck: Supple Respiratory: Crackles at bases bilaterally, normal respiratory effort Cardiovascular: Irregularly irregular GI: Soft, nontender, nondistended Extremities: 2+ pitting edema at both lower extremities to hips Musculoskeletal: Moving all extremities Neuro: No overt focal neurological deficits Skin: No rashes appreciated Psych: Cooperative Results Lab / Micro Data 11/09/24 04:35 11/09/24 04:35 Labs: Laboratory Results - last 24 hr 11/09/24 04:35: WBC 8.8, RBC 3.93 L, Hgb 10.5 L, Hct 34.2 L, MCV 87.0, MCH 26.7 L, MCHC 30.7 L, RDWStd Deviation 53.2 H, RDW Coeff of Josiah 16.7 H, Plt Count 292, MPV 10.5, Immature Gran % (Auto) 0.500, Neut % (Auto) 57.8, Lymph % (Auto) 32.8, [place] % (Auto) 6.5, Eos % (Auto) 1.6, Baso % (Auto) 0.8, Absolute Neuts (auto) 5.1, Absolute Lymphs (auto) 2.88, Nucleated RBC % 0, Sodium 138, Potassium 4.5, Chloride 99, Carbon Dioxide 24.8, Anion Gap 15, BUN 36 H, Creatinine 1.58 H, Estim Creat Clear Calc 38.00 L, Est GFR (MDRD) Non-Af 34 L, BUN/Creatinine Ratio 22.7 H, Glucose 133 H, Calcium 9.1, [place] [address] H Imaging Radiology Impression Chest X-Ray 11/09/24 05:10 IMPRESSION: Possible asymmetric edema or consolidation in the right central lung. Recommendfollow up imaging. Reading Location: [place] [address] Assessment & Plan Assessment/Plan (1) CHF exacerbation: PLAN: Plan #Acute exacerbation of chronic heart failure with reduced ejection fraction -Admit to telemetry -proBNP 55,945 -CXR showed edema versus consolidation, patient with no infectious symptoms whatsoever and clinicalpicture consistent with CHF, chest x-ray queried asymmetric edema but reviewing x-ray it looks consistent overall with CHF, does have a previous x-ray from 2020 in which the right lung was more opacified than the left, after patient begins diuresing with IV Lasix could consider repeat chest x-ray as repeat imaging was reportedly recommended -Continue IV lasix, will start with 40 IV daily and can further adjust dosing astolerated but wouldavoid overaggressive diuresis too quickly given her aortic stenosis -Last echo 08/13/2024 with mild to moderate global left ventricular systolic dysfunction with EF estimated to be 40 to 45% and noted diastolic dysfunction, moderate mitral valve insufficiency and moderate tricuspid valve insufficiency with severe aortic valve stenosis, RVSP of 62 -Of note she had a stress test around the same time which was negative for ischemia - No repeat echo ordered given previous echo was less than 3 months ago -Does follow with [facility] on an outpatient basis and was last seen 10/09/2024 -Daily weights, I's and O's -Fluid restriction, heart healthy diet #SANDRA - Suspect cardiorenal - Baseline creatinine around 1.19, today 1.58 - Suspect this will improve with IV diuresis - Repeat in the a.m., avoid nephrotoxic agents as able # Severe aortic valve stenosis - Patient already scheduled to follow-up with [facility] for her heart valve in November, she reportsthis is on Sunday - Patient vitally stable and not hypoxic - Suspect she will just need IV diuresis for improvement in symptoms and then can be discharged to follow-up with [facility] for outpatient evaluation -There does not seem to be indication for transfer for acute intervention, did discuss options withpatient of staying here for IV diuresis and follow-up outpatient versus transfer if she strongly desired that, patient prefers to stayhere and follow-up outpatient and verbalizes her understanding ofthis plan, do feel this is reasonable #GERD -Continue PPI # Chronic Atrial Fibrillation -Rate control: Coreg -Anticoagulation: Eliquis -Does have frequent ectopy, continue Coreg and will check mag #Type 2 diabetes mellitus -Glucose checks and sliding scale insulin #Hx COPD/asthma - As needed albuterol -Incentive spirometer #Depression/anxiety -Continue home medications #DVT ppx: Chronically on Saraiquis Emily Cummings MD Charges/Coding Visit Charges Inpatient E&M: 65821 Init Hosp L2 11/09/24 0757 Cosigner Signature (if applicable): CC: Dr. Emily Cummings MD; Dr. Delgado Amaro DO~ Signed [facility]08-03-2025 Discharge summary [facility] Medical Records Department [address] [place] [address] Emergency Department Summary 11/09/24 MR#: [id number] Acct: [id number] Name: DARYN GUILLERMO Rep #:[id number] : 1945 78 From: Kenyon Drew PCP: Dr. Delgado Amaro DO Status:REG ER Location: ED HPI History of Present Illness Chief Complaint: Shortness of Breath Informant: patient Narrative Narrative: Worsening dyspnea, orthopnea or leg swelling past few days. Diagnosed recent heart failure on Lasixdaily. Wheelchair for transport. She does not wear oxygen. Chronic cough nothing worsening COPD diagnosis secondary to exposure from her spouse. No chest pains. Facility increase her Lasix to 40 mg of Lasix3 days. She was on 20 previously. Prior similar symptoms: Yes PFSH PFSH Medical History Post-menopausal History of ulceration Gastric reflux History of stress test History of irregular heartbeat Aortic stenosis Lives in snf Wears glasses Wears partial dentures Marijuana use [...] History iron) tablet furosemide 20 mg tablet 40 mg PO QAM 04/28/24 Unknow n History [...] / Time No Known Allergies Allergy Verified 11/09/24 04:29 Family History Mother Alzheimer dementia Breast cancer Heart disease Brother Cystic fibrosis Surgical History History of colonoscopy S/P laminectomy History of tubal ligation Hx of cholecystectomy H/O section Social History Smoking Status: Never smoker alcohol intake: never ROS ROS ED Constitutional Constitutional ED: Denies chills, fever(s) or sweats ENT ENT ED: Denies sore throat Cardiovascular Cardiovascular: Reports leg edema and orthopnea; Denies chest pain, palpitationsor racing heartbeat Respiratory/Chest Respiratory/Chest: Reports dyspnea and orthopnea; Denies cough or dyspnea on exertion Gastrointestinal Gastrointestinal: Denies abdominal pain, diarrhea, nausea or vomiting Genitourinary Genitourinary ED: Denies dysuria, hematuria or urinary frequency Musculoskeletal Musculoskeletal: Denies back pain, extremity pain or neck pain Integumentary Denies rash or wounds Neurologic Neurologic: Denies headache(s), paresthesias or weakness EXAM Physical Exam Const Vital Signs: 11/09/24 04:23 11/09/24 04:46 11/09/24 05:23 Temperature 97.5 F L Temperature Source Oral Pulse Rate 102 H 100 Respiratory Rate 22 H 22 H Respiratory Effort Normal Blood Pressure 126/81 H 98/72 Blood Pressure Mean 96 80 Pulse Ox 98 95 Oxygen Delivery Method Room Air Room Air 11/09/24 06:00 Temperature Temperature Source Pulse Rate 110 H Respiratory Rate 22 H Respiratory Effort Blood Pressure 122/87 H Blood Pressure Mean 98 Pulse Ox 100 Oxygen Delivery Method Room Air Positive well nourished and well developed Constitutional Narrative: Nasal cannula no distress. General Appearance ED: well developed and NAD HEENT Reports moist mucous membranes normocephalic and atraumatic Eyes General Eye ED: Yes normal appearance of both eyes Neck full ROM Chest Wall Chest: Negative for tenderness Resp normal respiratory effort and normal air movement Effort and Inspection: symmetric chest movement; Negative for respiratory distress Cardio regular rate and no murmurs Peripheral Pulses: pulses 2+ throughout GI normal to inspection, nondistended, normoactive bowel sounds and non-tender Palpation: Negative for guarding or rebound tenderness present Extremity normal to inspection Extremity Narrative: 2+ lower extremity edema. No calf tenderness. Pulses intact distally. General Extremety ED: Yes edema; Negative for tenderness General Extremity: edema Neuro oriented x3 and no sensory deficits noted Sensorium / Orientation: awake and alert Skin no rashes or lesions noted and no wounds MDM MDM MDM Narrative Medical decision making narrative: Interventions / MDM: Differential diagnosis: CHF exacerbation, failed outpatient therapy, renal insufficiency, chronic A-fib Diagnosis considered but do not suspect: N/A My EKG interpretation: A-fib rate of 97, no ST changes. PVC noted. Imaging independently reviewed and interpreted by myself: 1 view chest x-ray asymmetric edema, per radiology possible consolidation. No new cough or concerns for pneumonia. External documents reviewed: Echocardiogram August 2024 EF of 40 to 45%. Creatinine 1.19 in September 2024. Test considered but not ordered:N/A ED course: History of CHF worsening dyspnea orthopnea with leg swelling. No acute distress. She is a nasal cannula however presented 90% on room air. [facility] basic labs for kidney function will check BNP and chest x-ray. EKG rate controlled A-fib. She is on chronic Eliquis. 0640: Chest x-ray right-sided edema, BNP 55,000 creatinine up to 1.58 up from 1.91 in September. She is ordered for IV Lasix to 40 mg. Her weight today is 109.7. Reviewing records 9 days ago had a weight of 94 kg. She has had a 15 kg weightgain 9 days with increasing of her Lasix to 40 mg over 3 days asan outpatient. Patient failing outpatient therapy with worsening renal insufficiency. I discussed with hospitalist Dr. Milton for admission. Re-evaluation: stable Disposition discussed with patient/family/significant other: Patient Case discussed with consulting clinician: Hospitalist This note was generated with [employer] dictation software. It may contain incorrectwords, spelling, and punctuation that were not noted in checking the note beforesigning. Lab Data Attestation: I reviewed the patient's lab results. Labs: Laboratory Results - last 24 hr 11/09/24 04:35 WBC 8.8 RBC 3.93 L Hgb 10.5 L Hct 34.2 L MCV 87.0 MCH 26.7 L MCHC 30.7 L RDW Std Deviation 53.2 H RDW Coeff of Josiah 16.7 H Plt Count 292 MPV 10.5 Immature Gran % (Auto) 0.500 Neut % (Auto) 57.8 Lymph % (Auto) 32.8 [place] % (Auto) 6.5 Eos % (Auto) 1.6 Baso % (Auto) 0.8 Absolute Neuts (auto) 5.1 Absolute Lymphs (auto) 2.88 Nucleated RBC % 0 Sodium 138 Potassium 4.5 Chloride 99 Carbon Dioxide 24.8 Anion Gap 15 BUN 36 H Creatinine 1.58 H Estim Creat Clear Calc 38.00 L Est GFR (MDRD) Non-Af 34 L BUN/Creatinine Ratio 22.7 H Glucose 133 H Calcium 9.1 [place] [address] H Radiography Diagnostic Testing: Clinical Impression(s) from Imaging Studies Chest X-Ray 11/09/24 05:10 IMPRESSION: Possible asymmetric edema or consolidation in the right central lung. Recommendfollow up imaging. Reading Location: [facility] Discharge Plan Dx/Rx/DC Orders Clinical Impression: CHF exacerbation, Acute renal insufficiency, Failure of outpatient treatment, A- fib, Chronic anticoagulation Disposition Disposition: Acute Care Hospital [facility] What to do if you have Problems For any increased pain, shortness of breath, bleeding, nausea or vomiting, chestpain, or any unexpected problems, contact your Primary Care Provider. Call [facility] ([phone]) or report tothe closest Emergency Room. Call 911 if necessary. 11/09/24 0645 Cosigner Signature (if applicable): CC: Dr. Delgado Amaro DO ~ Signed [facility]08-03-2025 Radiology Diagnostic study note [facility] Imaging Services [address] [place] [address] Chest 1 View (Portable) MR#: [id number] Acct: [id number] Name: DARYN GUILLERMO Rep #: [id number] 7 : 1945 F 78 From: Brigida Hunter MD PCP: April Mullen MD Status: PRE ER Study:Chest 1 View (Portable) Date of Exam: 11/09/24 Exam# [id number] Ordering Dr: Kenyon Shin DO PROCEDURE: CHEST 1 VIEW (PORTABLE) 11/09/2024 REASON FOR EXAM: SOB TECHNIQUE: Frontal view of the chest. COMPARISON: 01/08/2024 FINDINGS: Lordotic positioning. Scoliosis. Mild cardiac enlargement. Chronic rotator cuff tears. Interval clearing of right-sided effusion. Blunted angles. No large effusion or pneumothorax. There is faint airspace opacity in the right central lung. RAD/Chest 1 View (Portable) IMPRESSION: Possible asymmetric edema or consolidation in the right central lung. Recommendfollow up imaging. Reading Location: [facility] CC: Dr. Kenyon Shin DO; April Mlulen MD ~ Lpn Or Medical Assistant: Signed [facility]07-22-2025 Consult note [facility] Medical Records Department [address] [place] [address] Anesthesia Postop Eval II 10/28/24 1232 MR#: [id number] Acct: [id number] Name: DARYN GUILLERMO Rep #:[id number] 6 : 1945 78 From: Jurgen Licea PCP: April Mullen MD Status:REG SDC Y Race: C Location: [address] Anesthesia Postop Eval I Sum Postop Eval [...] 99% Complications Anesthesia Complication: No 10/28/24 1233 MD> Date _ Jurgen Rosario MD Cosigner Signature: Date CC: ~ Signed [facility]07-22-2025 Consult note [facility] Medical Records Department [address] [place] [address] [place] [address] Anesthesia Postop Eval I 10/28/248 MR#: [id number] Acct: [id number] Name: DARYN GUILLERMO BLANE Rep #:[id number] : 1945 78 From: Jones Greer PCP: April Mullen MD Status:REG [facility] Y Race: C Location: [place] [address] Anesthesia: Postop Eval I Current Vital Signs [...] Postop Eval 1 completed: Yes 10/28/24 1229 > Date _ Jones Acevedo Signature: Date CC: ~ Signed [facility]07-22-2025 Procedure note [facility] Medical Records Department [address] [place] [address] EGD Report MR#: [id number] Acct: [id number] Name: DARYN GUILLERMO BLANE Rep #:[id number] : 1945 78 From: Jacinto Munoz DO PCP: April Mullen MD Status:REG [facility] Patient Name: Daryn Guillermo Procedure Date: 10/28/2024 11:31 AM Date of : 1945 Age: 78 Procedure: Upper GI endoscopy Indications: Follow-up of peptic ulcer Providers: Jacinto Munoz DO Referring MD: April Mullen Md Medicines: Monitored Anesthesia Care Patient Profile: This is a 78 year old female. Refer to note in patient chart for documentation of history and physical. Patient has symptoms of chronic epigastric abdominal pain. Complications: No immediate complications. [...] and oxygen saturations were monitored continuously. The Endoscope was introduced through the mouth, and advanced to the third part of the duodenum. Small bowel enteroscopy was deemed necessary. The upper GI endoscopy was accomplished without difficulty. The patient tolerated the procedure well. Scope In: 12:06:56 PM Scope Out: 12:09:58 PM Total Procedure Duration Time 0 hours 3 minutes 2 seconds Findings: The examined esophagus was normal. Patchy mild inflammation characterized by congestion (edema) and erythema was found in the gastric antrum. Biopsies were taken with a cold forceps for histology. Verification of patient identification for the specimen was done. Estimated blood loss was minimal. Biopsies were taken with a cold forceps for Helicobacter pylori testing. No gross lesions were noted in the entire examined duodenum. Impression: - Normal esophagus. - Chronic gastritis. Biopsied. - No gross lesions in the entire examined duodenum. Recommendation: - Await pathology results. - Return to GI clinic. - Continue present medications. Procedure Code(s): --- Professional --- 24823, Small intestinal endoscopy, enteroscopy beyond second portion of duodenum, not including ileum; with biopsy, single or multiple CPT copyright 2022 [employer]. All rights reserved. The codes documented in this report are preliminary and upon senior vice president & general counsel review may be revised to meet current compliance requirements. Jacinto Munoz DO 10/28/2024 12:20:01 PM This report has been signed electronically. Number of Addenda: 0 Note Initiated On: 10/28/2024 11:31 AM 10/28/24 1220 Date _ Jacinto Munoz DO Cosigner Signature: Date (if indicated) CC: April Mullen MD; Jacinto Munoz DO ~ Date Dictated: 10/28/24 1131 Date Transcribed: Lpn Or Medical Assistant: RF Signed [facility]07-22-2025 Procedure note [facility] Medical Records Department [address] [place] [address] Operative Report - CC Letter MR#: [id number] Acct: [id number] Name: DARYN GUILLERMO Rep #:[id number] : 1945 78 From: Jacinto Munoz DO PCP: April Mullen MD Status:REG [facility] 10/28/2024 April Mullen Md Re : Upper GI endoscopy procedure for Daryn Guillermo Dear Dr. Mullen This procedure was performed on Monday, October 28, 2024. My impressions and recommendations are as follows: Impressions : - Normal esophagus. - Chronic gastritis. Biopsied. - No gross lesions in the entire examined duodenum. Recommendations : - Await pathology results. - Return to GI clinic. - Continue present medications. My findings are described in the full procedure note, which is enclosed. If I can be of further assistance, please feel free to contact me at . Sincerely, Jacinto Munoz DO 10/28/2024 12:20:01 PM This report has been signed electronically. 10/28/24 1220 Date _ Jacinto Friend DO Acevedo Signature: Date (if indicated) CC: April Mullen MD; Jacinto Munoz ~ Date Dictated: 10/28/24 1131 Date Transcribed: Lpn Or Medical Assistant: RF Signed [facility]07-22-2025 History and physical note [facility] Medical Records Department [address] [place] [address] History & Physical Exam 10/28/24 1144 MR#: [id number] Acct: [id number] Name: DARYN GUILLERMO BLANE Rep #:[id number] 1 : 1945 78 From: Jacinto Munoz DO PCP: April Mullen MD Status:[facility] Location: [place] [address] HPI - General General Date of Admission: 10/28/24 Date of Service: 10/28/24 Chief Complaint: Anemia HPI Narrative DARYN GUILLERMO, is a 78 F who presents with Chief Complaint: anemia [facility] ED 12.4.24 with low Hgb 6.9 [...] Resected and retrieved. Clip was placed. Clip stripper color: Pharmaxis. OV 4.24.25 Pt here today to review results of endoscopy. She has no GI complaints. She denies dark or tarry stools. She continues with pantoprazole 40 mg daily and iron. She is having a bm every 2-3 days and feels mild constipationfrom the iron. Last hgb 11.4 (4.15.25). [facility] Medical History Post-menopausal History of ulceration Gastric reflux History of stress test History of irregular heartbeat Aortic stenosis Lives in snf Wears glasses Wears partial dentures Marijuana use [...] tablet 650 mg PO Q4H PRN Pain - Or 06/30/24 Unknown History Fever>100.7 albuterol sulfate [...] regarding her anemia. Pt underwent EGD and colonoscopyin June 2024 which showed diverticulosis. one polyp [...] (2) Gastric ulcer: Status: Acute 10/28/24 1147 Cosigner Signature (if applicable): CC: April Mullen MD; Jacinto Friend, DO~ Signed [facility]07[facility]22[facility] Consult note [facility] Medical Records Department [address] [place] [address] Pre-Anesthesia Evaluation 10/28/24 1130 MR#: [id number] Acct: [id number] Name: DARYN GUILLERMO BLANE Rep #:[id number] 0 : 1945 78 From: Jurgen Licea PCP: April Mullen MD Status:REG SD Y Race: C Location: [place] [address] ASA Classification* ASA Classification ASA Classification: 4 [...] Procedure(s): EGD Anesthesia History Anesthesia History - r d engineer: Anesthesia History - r d engineer Hx Hospitalization Yes: ANEMIA 10/21/24 08:35 Any [...] take am of surgery PONV PONV - r d engineer: PONV - r d engineer Female Yes 10/21/24 08:35 HX of Motion [...] 10/28/24 10:53 Respiratory Assessment Respiratory Assessment - r d engineer: Respiratory Tract Infection Hx - r d engineer Hx Respiratory Tract Infection No 10/21/24 08:35 STOP Sleep Apnea STOP Sleep Apnea - r d engineer: STOP Sleep Apnea - r d engineer Hx Hypertension Yes 10/21/24 08:35 Hx Sleep [...] Tobacco Use History Tobacco Use History - r d engineer: Tobacco Use History - r d engineer Tobacco Use Smoking Status Never smoker 10/21/24 08:35 Hx Tobacco Use No 10/21/24 08:35 Years Smoking Packs Smoked per Day Smoking Cessation Date was within the last 15 years Hx Smoking Cessation Date Hx Smoking Cessation Counseling Hematologic Medial History Hematologic Hx - r d engineer: 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 Specify any problems Hx of Preganancy in last 3 No 10/21/24 08:35 Months Nurse Filling Out Transfusion [facility] 10/21/24 08:35 & Questions: Date: 10/21/24 10/21/24 08:35 Time: 08:37 10/21/24 08:35 Patient unable to answer at this time (ie. confused, unrespo /Reproduction History /Reproductive History - r d engineer: /Reproductive Hx- r d engineer Hx Now No 10/21/24 08:35 Gestational Age [...] of irregular heartbeat Aortic stenosis Lives in snf Wears glasses Wears partial dentures Marijuana use [...] additional complaints, except as documented. 10/28/24 1134 > Date _ Jurgen Acevedo Signature: Date CC: ~ Signed [facility]06-13-2025 Telephone encounter Note* Telephone Encounter - Gamaliel Hess MA - 09/19/2024 3:56 PM EDT Spoke with nurse at [facility] [phone], [address] They're unable to arrange transportation for 09/24/24 office visit and reschedule to 11/12/24 10:30am. I faxed appt reminder with our address on it to [phone]. [facility]06-13-2025 Miscellaneous Notes* Telephone Encounter - Gamaliel Hess MA - 09/19/2024 3:56 PM EDT Spoke with nurse at [facility] [phone], [address]. They're unable to arrange transportation for 09/24/24 office visit and reschedule to 11/12/24 10:30am. I faxed appt reminder with our address on it to [phone]. * Telephone Encounter - Laurent Jurado APRN.CNP - 09/19/2024 3:21 PM EDT Images from the original note were not included. TAVR clinic referral received from Dr. Milo Mendoza. Chart reviewed, scanned records and imaging appreciated. 78 yo female with PMHx that includes HFrEF, a fib (previously on xarelto), DM, renal disease, anemia, anxiety/depression, OM, OA, GIB, PUD, COPD. Resides at [facility] since 6 months ago.Wheelchair bound, does stand for brief transfers with assist. Notes she gave up will to live about 5 years ago due to frustrations with family situations, and just had gradual debilitation. 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 Of note rivaraxoban was stopped prior due [...] 24 at 1030 - 1000 arrival - [facility], silver elevators, 3rd floor She would like to take appt and is going to speak with her charge nurse to inquire on transportation arrangements. ECHO 08/13/24 Mean/peak 40? 1+ AI EF 40-45% Laurent Jurado APRN.PALOMA documented [facility] Telephone encounter Note * Telephone Encounter - Laurent Jurado APRN.CNP - 09/19/2024 3:21 PM EDT Images from the original note were not included. TAVR clinic referral received from Dr. Milo Mendoza. Chart reviewed, scanned records and imaging appreciated. 78 yo female with PMHx that includes HFrEF, a fib (previously on xarelto), DM, renal disease, anemia, anxiety/depression, OM, OA, GIB, PUD, COPD. Resides at [facility] since 6 months ago.Wheelchair bound, does stand for brief transfers with assist. Notes she gave up will to live about 5 years ago due to frustrations with family situations, and just had gradual debilitation. 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 Of note rivaraxoban was stopped prior due [...] 24 at 1030 - 1000 arrival - [facility], lansing elevators, 3rd floor She would like to take appt and is going to speak with her charge nurse to inquire on transportation arrangements. ECHO 08/13/24 Mean/peak 40? 1+ AI EF 40-45% Laurent Jurado APRN.PALOMA [facility]06-11-2025 Telephone encounter Note* Telephone Encounter - Pearl Dutta - 09/17/2024 3:47 PM EDT Referral received and scanned to chart. Fax request was sent to [facility] requesting images and reports. A message was also sent to Laurent Jurado CNP in regards to the referral. Non-rheumatic aortic valve stenosis (possible TAVR candidate). [facility]06-11-2025 Miscellaneous Notes* Telephone Encounter - Pearl Dutta - 09/17/2024 3:47 PM EDT Referral received and scanned to chart. Fax request was sent to [facility] requesting images and reports. A message was also sent to Laurent Jurado CNP in regards to the referral. Non-rheumatic aortic valve stenosis (possible TAVR candidate). documented in this encounterC[facility]04-[facility] Evaluation note* Diagnosis Onset Date Resolution Status Admit Date A-fib chronic July 23 10:52am Chronic HFrEF [...] Gastric ulcer acute October 28, 2024 10:27am Acute renal insufficiency acute November 09, 2024 7:47am Chronic anticoagulation acute A ug2024 7:47am Failure of outpatient treatment acut e November 09, 2024 7:47am A-fib chronic November 09 7:47am CHF exacerbation chronic November 092024 7:47am [facility] Work Phone: 1(525) 268-566504-16-2025 Evaluation note* Diagnosis Onset Date Resolution Status Admit Date A-fib chronic July 23 10:52am Chronic HFrEF [...] Gastric ulcer acute October 28, 2024 10:27am Acidosis, metabolic acute Augus t 2024 7:47am Acute renal insufficiency acute November 09, 2024 7:47am Chronic anticoagulation acute A ugust 2024 7:47am Dysphagia acute November 09 7:47am Failure of outpatient treatment acut e November 09, 2024 7:47am Hyperkalemia acute November 09, 2024 7:47am A-fib chronic November 09 7:47am CHF exacerbation chronic November 092024 7:47am Chronic HFrEF (heart failure with reduced ejection fraction) chronic November 09, 2024 7:47am [facility] Work Phone: 1(112) 871-494303-25-2025 History and physical note Author Jacinto Friend [facility] Note Date/Time July 01, 2024 12: 39pm [facility] Medical Records Department [address] [place] [address] History & Physical Exam 07/01/24 1237 MR#: [id number] Acct: [id number] Name: DARYN GUILLERMO BLANE Rep #:[id number] : 1945 78 From: Jacinto Munoz DO PCP: April Mullen MD Status:REG [facility] Location: [place] [address]-1 HPI - General General Date of Admission: 07/01/24 Date of Service: 07/01/24 Chief Complaint: Anemia HPI Narrative DARYN GUILLERMO, is a 78 F who presents for [...] she also reports prior to admission to [facility] she had 30-40lb of peripheral edema [...] - CKD (GFR 52) - Easy bruising [facility] Medical History (Updated 07/01/24 @ 12:[address] Casey Friend, DO) Lives in snf Wears glasses Wears partial dentures Marijuana use [...] April Mullen MD; Jacinto Munoz DO~ Signed [facility] Work Phone: 1(439) 813-577203-25-2025 Consult note Author Manuel Campuzano [facility] Note Date/Time July 01, 2024 12: 33pm [facility] Medical Records Department [address] [place] [address] Pre-Anesthesia Evaluation 07/01/24 1219 MR#: [id number] Acct: [id number] Name: DARYN GUILLERMO Rep #:[id number] 0 : 1945 78 From: Manuel Campuzano MD PCP: April Mullen MD Status:REG [facility] Y Race: C Location: [place] [address] ASA Classification* ASA Classification ASA Classification: 3 [...] Procedure(s): CSCOPE/EGD Anesthesia History Anesthesia History - r d engineer: Anesthesia History - r d engineer Hx Hospitalization Yes: 12/2023 PNEUMONIA AND 06/30/24 [...] sips of water?: No PONV PONV - r d engineer: PONV - r d engineer Female Yes 06/30/24 11:18 HX of Motion [...] 07/01/24 11:58 Respiratory Assessment Respiratory Assessment - r d engineer: Respiratory Tract Infection Hx - r d engineer Hx Respiratory Tract Infection No 06/30/24 11:18 STOP Sleep Apnea STOP Sleep Apnea - r d engineer: STOP Sleep Apnea - r d engineer Hx Hypertension Yes 06/30/24 11:18 Hx Sleep [...] Tobacco Use History Tobacco Use History - r d engineer: Tobacco Use History - r d engineer Tobacco Use Smoking Status Never smoker 06/30/24 11:18 Hx Tobacco Use No 06/30/24 11:18 Years Smoking Packs Smoked per Day Smoking Cessation Date was within the last 15 years Hx Smoking Cessation Date Hx Smoking Cessation Counseling Hematologic Medial History Hematologic Hx - r d engineer: 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 07/01/24 1233 <Electronically signed by Manuel hyde MD> Date _ Manuel Campuzano MD Cosigner Signature: Date CC: ~ Signed [facility] Work Phone: 1(121) 524-661303-25-2025 Procedure note [facility] Medical Records Department [address] [place] [address] Colonoscopy Report MR#: [id number] Acct: [id number] Name: DARYN GUILLERMO Rep #:[id number] : 1945 78 From: Jacinto Munoz DO PCP: April Mullen MD Status:REG [facility] Patient Name: Daryn Guillermo Procedure Date: 07/01/2024 1:21 PM Date of [...] one hemostatic clip was successfully placed. Clip stripper color: Pharmaxis. There was no bleeding at the end of the procedure. Impression: - Diverticulosis in the recto-sigmoid colon, in the sigmoid colon and in the descending colon. - One 20 mm polyp in the cecum, removed with a hot snare. Resected and retrieved. Clip was placed. Clip stripper color: Pharmaxis. Recommendation: - Repeat colonoscopy in 3 years for surveillance. - Continue present medications. Procedure Code(s): --- Professional --- 69957, Colonoscopy, flexible; with removal of tumor(s), polyp(s), or other lesion(s) by snare technique CPT copyright 2021 [employer]. All rights reserved. The codes documented in this report are preliminary and upon senior vice president & general counsel review may be revised to meet current compliance requirements. Jacinto Munoz DO 07/01/2024 2:07:31 PM This report has been signed electronically. Number of Addenda: 0 Note Initiated On: 07/01/2024 1:21 PM 07/01/24 1407 Date _ Jacinto Harper Signature: Date (if indicated) CC: April Mullen MD; Jacinto Munoz DO ~ Date Dictated: 07/01/24 1321 Date Transcribed: Lpn Or Medical Assistant: ADAMA Signed [facility]03-25-2025 Procedure note [facility] Medical Records Department [address] [place] [address] Operative Report - CC Letter MR#: [id number] Acct: [id number] Name: DARYN GUILLERMO Rep #:[id number] : 1945 78 From: Jacinto Munoz DO PCP: April Mullen MD Status:REG [facility] 07/01/2024 April Mullen Md Re : Colonoscopy procedure for Daryn Guillermo Dear Dr. Mullen This procedure was performed on Monday, July 01, 2024. My impressions and recommendations are as follows: Impressions : - Diverticulosis in the recto-sigmoid colon, in the sigmoid colon and in the descending colon. - One 20 mm polyp in the cecum, removed with a hot snare. Resected and retrieved. Clip was placed. Clip stripper color: Pharmaxis. Recommendations : - Repeat colonoscopy in 3 [...] ~ Date Dictated: 07/01/24 1321 Date Transcribed: Lpn Or Medical Assistant: RF Signed [facility]03-25-2025 Consult note [facility] Medical Records Department [address] [place] [address] Anesthesia Postop Eval I 07/01/24 1406 MR#: [id number] Acct: [id number] Name: DARYN GUILLERMO Rep #:[id number] 1 : 1945 78 From: Jones Greer PCP: pAril Mullen MD Status:REG [facility] Y Race: C Location: [place] [address] Anesthesia: Postop Eval I Current Vital Signs [...] document: Postop Eval 1 completed: Yes 07/01/241406 > Date _ Jones Acevedo Signature: Date CC: ~ Signed [facility]03-25-2025 Procedure note [facility] Medical Records Department [address] [place] [address] EGD Report MR#: [id number] Acct: [id number] Name: DARYN GUILLERMO BLANE Rep #:[id number] : 1945 78 From: Jacinto Munoz DO PCP: April Mullen MD Status:REG [facility] Patient Name: Daryn Guillermo Procedure Date: 07/01/2024 1:01 PM Date of [...] check healing. Procedure Code(s): --- Professional --- 60228, Small intestinal endoscopy, enteroscopy beyond second portion of duodenum, not including ileum; with biopsy, single or multiple CPT copyright 2021 [employer]. All rights reserved. The codes documented in this report are preliminary and upon senior vice president & general counsel review may be revised to meet current compliance requirements. Jacinto Munoz DO 07/01/2024 2:05:15 PM This report has been signed electronically. Number of Addenda: 0 Note Initiated On: 07/01/2024 1:01 PM 07/01/24 1405 Date _ Jacinto Munoz DO Cosigner Signature: Date (if indicated) CC: April Mullen MD; Jacinto Munoz DO ~ Date Dictated: 07/01/24 1301 Date Transcribed: Lpn Or Medical Assistant: RF Signed [facility]03-25-2025 Procedure note [facility] Medical Records Department [address] [place] [address] Operative Report - CC Letter MR#: [id number] Acct: [id number] Name: DARYN GUILLERMO BLANE Rep #:[id number] : 1945 78 From: Jacinto Munoz DO PCP: April Mullen MD Status:REG [facility] 07/01/2024 April Mullen Md Re : Upper GI endoscopy procedure for Daryn Guillermo Dear Dr. Mullen This procedure was performed [...] This report has been signed electronically. 07/01/24 1405 Date _ Jacinto Munoz DO Cosigner Signature: Date (if indicated) CC: April Mullen MD; Jacinto Munoz DO ~ Date Dictated: 07/01/24 1301 Date Transcribed: Lpn Or Medical Assistant: ADAMA [place] [facility]03-25-2025 Evaluation note* Diagnosis Onset Date Resolution [...] 2024 2:38pm Hypertension chronic October 09 2:38pm [employer] Work Phone: 1(415) 493-6068360166-78-9430 Evaluation note* Diagnosis Onset Date Resolution Status [...] Gastric ulcer acute October 28, 2024 10:27am [facility] Work Phone: 1(548) 407-295903-25-2025 History and physical note [facility] Medical Records Department [address] [place] [address] History & Physical Exam 07/01/24 1237 MR#: [id number] Acct: [id number] Name: DARYN GUILLERMO BLANE Rep #:[id number] : 1945 78 From: Jacinto Munoz DO PCP: April Mullen MD Status:[facility] Location: [place] [address] HPI - General General Date of Admission: 07/01/24 Date of Service: 07/01/24 Chief Complaint: Anemia HPI Narrative DARYN GUILLERMO, is a 78 F who presents for [...] she also reports prior to admission to [facility] she had 30-40lb of peripheral edema [...] - CKD (GFR 52) - Easy bruising [facility] Medical History (Updated 07/01/24 @ 12:[address] Casey Friend, DO) Lives in snf Wears glasses Wears partial dentures Marijuana use [...] April Mullen MD; Jacinto Munoz DO~ Signed [facility]03-25[facility] Consult note [facility] Medical Records Department [address] [place] [address] Pre-Anesthesia Evaluation 07/01/24 1219 MR#: [id number] Acct: [id number] Name: DARYN GUILLERMO Rep #:[id number] : 1945 78 From: Manuel Campuzano MD PCP: April Mullen MD Status:REG SDC Y Race: C Location: [place] [address] ASA Classification* ASA Classification ASA Classification: 3 [...] Procedure(s): CSCOPE/EGD Anesthesia History Anesthesia History - r d engineer: Anesthesia History - r d engineer Hx Hospitalization Yes: 12/2023 PNEUMONIA AND 06/30/24 [...] sips of water?: No PONV PONV - r d engineer: PONV - r d engineer Female Yes 06/30/24 11:18 HX of Motion [...] 07/01/24 11:58 Respiratory Assessment Respiratory Assessment - r d engineer: Respiratory Tract Infection Hx - r d engineer Hx Respiratory Tract Infection No 06/30/24 11:18 STOP Sleep Apnea STOP Sleep Apnea - r d engineer: STOP Sleep Apnea - r d engineer Hx Hypertension Yes 06/30/24 11:18 Hx Sleep [...] Tobacco Use History Tobacco Use History - r d engineer: Tobacco Use History - r d engineer Tobacco Use Smoking Status Never smoker 06/30/24 11:18 Hx Tobacco Use No 06/30/24 11:18 Years Smoking Packs Smoked per Day Smoking Cessation Date was within the last 15 years Hx Smoking Cessation Date Hx Smoking Cessation Counseling Hematologic Medial History Hematologic Hx - r d engineer: 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 Hx of Blood Transfusion No 06/30/24 [...] confused, unrespo /Reproduction History /Reproductive History - r d engineer: /Reproductive Hx- r d engineer Hx Now No 06/30/24 11:18 Gestational Age (in weeks): EDC: Hx Hx Para Hx Section SAB No 06/30/24 11:18 [facility] Medical History Lives in snf Wears glasses Wears partial dentures Marijuana use [...] MD Cosigner Signature: Date CC: ~ Signed [facility]01-20-2025 Evaluation note* Diagnosis Onset Date Resolution Status Admit Date Anemia noneactive April 28, 2024 10:28am [facility] Work Phone: 1(201) 417-964601-20-2025 Evaluation note* Diagnosis Onset Date Resolution Status Admit Date Anemia noneactive April 28, 2024 10:28am Anemia acute July 01 11:19am [facility] Work Phone: 1(881) 308-150001-20-2025 Evaluation note* Diagnosis Onset Date Resolution Status Admit Date Anemia noneactive April 28, 2024 10:28am Anemia acute July 01 11:19am A-fib chronic July 23 10:52am Chronic HFrEF (heart failure with reduced ejection fraction) chronic July 23, 2024 10:52am Diabetes chronic July 23 10:52am Hypertension chronic July 23, 2024 10:52am Anemia acute July 31 8:52am Gastric ulcer acute July 31, 2024 8:52am [facility] Work Phone: 1(401) 299-926511-21-2024 History of Present illness Narrative* Braulio Oneil MD PhD - 02/28/2024 10:00 AM EST Images from the original note were not included. [facility] Department of Neurological Surgery Post Operative Patient Visit History of Present Illness: Daryn Guillermo is a 78 y.o. year old female [...] touch Results No new imaging Assessment/Plan Daryn Guillermo is a 78 y.o. year old female [...] surgery. She does physical therapy at her snf. I am concerned that she is very [...] Sincerely, Braulio Oneil MD PhD Attending Neurosurgeon [facility] Culinary Art Teacher of Neurological Surgery [employer] [facility] [employer] [facility] [address] [address] [place] [address] [facility] [place] [address] [place] [address] Office: documented in this [facility] Work Phone: 1(253) 280-190910-08-2024 History of Present illness Narrative* Megan Osorio, DO - 01/15/2024 10:20 AM EDT Infectious Diseases Clinic Follow-up: Reason for Visit: vertebral OM History of Current Issue Daryn Guillermo is a 78 y.o. woman pmhx sig [...] continuing to get her IV abx at [facility]. Was in quarantine for a while at the rehab. Now back in her old room and feels at home. Was told she had a weak heart, and is looking into getting a ict educator for her Afib. Biggest regret is feels [...] ceftriaxone today. No back pain while at [facility]. Also spoke popeye/ Yony, wound nurse, confirmed incision is healed and intact. Records faxed from her recent hospitalization at [facility], admitted from 12/30 to ~01/06 for AMS, [...] IDENTIFIED. Imaging Studies: ASSESSMENT / RECOMMENDATIONS: Daryn Guillermo is a 77 y.o. year old woman [...] needed Megan Osorio DO documented in this [facility] Work Phone: 1(979) 721-277010-01-[address] [facility]09-18-2024 History of Present illness Narrative* Megan Osorio DO - 12/26/2023 10:00 AM EDT Infectious Diseases Clinic Follow-up: Reason for Visit: vertebral OM History of Current Issue Daryn Guillermo is a 77 y.o. 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 ASSESSMENT / RECOMMENDATIONS: Daryn Guillermo is a 77 y.o. year old woman pmhx sig for Afib, T2DM last A1c 7.2, admitted 8/1-11/19for acute onset worsening back pain and imaging [...] results Megan Osorio DO documented in this [facility] Work Phone: 1(354) 825-618908-27-2024 History of Present illness Narrative* Eliza Alonso PA-C - 12/04/2023 10:00 AM EDT Images from the original note were not included. [facility] Department of Neurological Surgery Post Operative Patient Visit History of Present Illness: Daryn Guillermo is a 77 y.o. year old female who presents post T6-9 laminectomy and decompression by Dr. Braulio Oneil on November 14, 2023. Initially with significant spinal cord compression though recovering well and in good spirits. Inspection of her incision shows well-approximated, nonerythemic, nonedematous surgical incision with good fibrotic tissue spanning. Paulding removed at visit today with patient tolerating [...] directly. Sincerely, JANAK Tian PA-C Associate Physician School Psychologist Assistant, Neurosurgery Clinical Culinary Art Teacher [facility] [place] [address] documented in this [facility] Work Phone: 1(520) 485-935908-13-2024 Nurse Note* Ramos Phillip RN - 11/20/2023 [...] stable,patient oriented. Complaints of 9/10 back pain. Grimaldo ,prevena suction and hemovac in place and [...] reach. Wolf Arellano LPN documented in this [facility] Work Phone: 1(565) 615-185808-13-2024 History of Present illness Narrative* Ansley Anthony - 11/20/2023 1:37 PM EDT Spiritual Care Visit Clinical Encounter Type Visited With: Patient Routine Visit: Follow-up Continue Visiting: Yes Surgical Visit: Post-op Referral From: Nurse, Family, Patient Referral To: Consulting Database Administrator Buddhist Encounters Buddhist Needs: Prayer Values/Beliefs Cultural Requests During Hospitalization: [...] (Level of Unmet Needs) Existential Struggle: Some Spiritual/Buddhist Struggle: Some Legacy: Some Relationships: Some Fear [...] calming presence Methods: Offer emotional support, Offer spiritual/jehovah's witness support, Offer support Interventions: Active listening, Assist with identifying strengths, Discuss concerns, Facilitate life review, Prayer for healing Follow up spiritual care visit with patient this morning. Patient engaged resident caregiver in life review and story telling. Pt has some grief and loss that she is working through. Patient shared her feelings and concerns and hopes. Consulting Database Administrator listened and provided support, companionship, prayer and listening. Patient may be discharged today. Consulting Database Administrator will continue to see her if that is not the case. * Linda Grace, BryannaD - 11/20/2023 11:29 AM EDT Vancomycin Dosing by Pharmacy- FOLLOW UP Daryn Guillermo is a 77 y.o. year old female [...] The next level will be obtained on 8 at AM labs. May be obtained sooner if clinically indicated. Will continue to monitor renal function daily while on vancomycin and order serum creatinine at least every 48 hours if not already ordered. Follow for continued vancomycin needs, clinical response, and signs/symptoms of toxicity. Linda Grace PharmD * Sophie Blair James, SCRAP DROP CRANE OPERATOR-HARNESS INSPECTOR - 11/20/2023 9:42 AM EDT Subjective Patient endorses feelings of depression. She states she is depressed but this is nothing new. Shestates it wouldn't be the worst thing if I , but she denies suicidal ideation and is thinkingabout plans to reconnect with her catholic and is interested in looking a senior oBaz for socialization. She agrees with the plan to increase Effexor dose. She is hopeful her strength will improve wh ile at rehab. She expresses concern for her son who is currently hospitalized. Consulting Database Administrator is seeing patient today as well. Patient [...] PRN Giovanna Coles MD 5 mg at 11/20/2332 polyethylene glycol (Glycolax, Miralax) packet 34 g [...] Results Component Value Date TSH 0.45 11/19/2023 [id number] 374 11/19/2023 VITD25 51 11/19/2023 HGBA1C 7.2 [...] PLACEMENT. COMPARISON: 11/13/2023 chest radiograph ACCESSION NUMBER(S): [id number] ORDERING CLINICIAN: RU SANTOS FINDINGS: AP radiograph of the chest was [...] as stated. This study was interpreted at [facility], [place], [place]. MACRO: None Signed by: Pastor Barrientos 11/17/2023 6:46 AM Dictation workstation: [id number] DATA: EKG: QTC Encounter Date: 11/09/23 ECG 12 Lead Result Value Ventricular Rate 73 Atrial Rate 73 DC Interval 196 QRS Duration 106 QT Interval 384 QTC Calculation(Bazett) 423 P Decatur -24 R Decatur -46 T Decatur -41 QRS Count 12 Q Onset 205 [...] 0 Mobility: Patient is wheelchair bound at [facility] Geriatric medicine will continue to follow the patient. Thank you for allowing geriatric medicine to be involved in the care of your patient. Geriatric medicine consultation team is available during work hours Sunday through Sunday. For any emergency issues requiring immediate assistance over the weekend, please page Geriatrics pager [phone] MACARENA Richardson * Elias Elyse - 11/20/2023 9:39 AM EDT Progress Note, 11/20/2023: History of Present Illness Daryn A Guillermo is a 77 y.o. female currently on [...] Value Ventricular Rate 73 Atrial Rate 73 DC Interval 196 QRS Duration 106 QT Interval 384 QTC Calculation(Bazett) 423 P Decatur -24 R Decatur -46 T Decatur -41 QRS Count 12 Q Onset 205 [...] as stated. This study was interpreted at [place], [place]. MACRO: None Signed by: Pastor Barrientos 11/17/2023 6:46 AM Dictation workstation: [id number] CT guided percutaneous biopsy bone deep Result Date: 11/14/[address]-guided biopsy of the T7 vertebra. Specimens were sent to pathology/laboratory per requesting team. I was present for the entirety of the procedure as detailed above. I personally reviewed the images/study and I agree with the findings as stated by Justin Gatica MD. This study was interpreted at [place], [place]. MACRO: None Signed by: Caron Donaldson 11/14/2023 8:11 AM Dictation workstation: [id number] XR chest 1 view Result Date: 11/14/2023 1. No acute abnormality of the chest. 2. Mild retrocardiac and left basilar atelectasis. I personally reviewed the image(s)/study and resident interpretation as stated by Dr. Tiffanie Healy MD. I agree with the findings as stated. This study was interpreted at [place], [place]. MACRO: None Signed by: Bunny Asher 11/14/2023 7:48 AM Dictation workstation: [id number] MR lumbar spine w and wo IV [...] as stated. This study was interpreted at [place], [place]. MACRO: None Signed by: Lynda Bal 11/06/2023 1:29 PM Dictation workstation: [id number] MR thoracic spine w and wo IV [...] Lynda Bal 11/06/2023 1:24 PM Dictation workstation: [id number] MR cervical spine w and wo IV contrast Result Date: 11/06/2023 The examination is moderately degraded by patient motion artifact. Within this limitation, no evidence of focal osseous metastatic disease. No definite abnormal signal or enhancement within the cervical cord. Multilevel degenerative changes as detailed above. MACRO: None Signed by: Lynda Bal 11/06/2023 1:10 PM Dictation workstation: [id number] CT chest abdomen pelvis wo IV contrast [...] oxyCODONE, oxyCODONE, vancomycin Assessment & Plan Daryn Guillermo is a 77 y.o. female w/ PMHx of Afib (on Xeralto), COPD (?), DMII (A1c 7.2% 03/01) on day 8 of admission as a transfer from [facility] to [facility] for evaluation of back pain likely [...] - inc effexor to 112.5, music therapy, resident caregiver services -Working on dispo -Drains removed by [...] is some anxiety related to son's (primary it support engineer) health condition and when she can return [...] Extended Emergency Contact Information Primary Emergency Contact: SHABBIR GUILLERMO Address: [address] [place] [phone] [facility] Relation: Son Preferred language: Mexican Industrial Gas Production Operator needed? No Secondary Emergency Contact: Rissa GUILLERMO Address: [address] [place] [phone] [facility] Relation: Son Preferred language: [employer] Industrial [employer] Production Operator needed? No Elias Pappas, MS4 11/20/2023 Associated attestation - Sai [...] Payer: [employer] Status: Inpatient Discharge disposition: [facility] Potential Barriers: none ADOD: 11/19 Secure chat sent to direct submit team to initiate precert. Per [facility] we have to complete pre-cert on our end as we our devoted contract is through [facility]. Please send therapy notes so we are able to start. Precert team confirmed precert has already been started and they will send over [facility], facility updated. [place]/discharge orders requested from the team for 7000 form. pilates coordinator will continue to follow for discharge planning needs. Kay Putnam RN Transitional Carbonation Equipment Operator/TCC [id number] * Alonzo Antony OT - 11/19/2023 2:31 PM EDT Occupational Therapy OT Treatment Patient Name: Daryn Guillermo Today's Date: 11/19/2023 Time Calculation Start Time: [...] at the side of the bed. Outcome Measures:[facility] Daily Activity Putting on and taking [...] assistance. (Progressing) Start: 11/15/23 Expected End: 11/29/23 Jinous Khandel OTR/L, OTD * Sophie Trevino, PT - 11/19/2023 1:01 PM EDT Physical Therapy Physical Therapy Treatment Patient Name: Daryn Guillermo Today's Date: 11/19/2023 Time Calculation Start Time: [...] 1: cues for log roll Outcome Measures: [facility] Basic Mobility Turning from your back [...] Expected End: 11/26/23 Pain - Adult * aRul Chaney, PharmD - 11/19/2023 9:19 AM EDT Vancomycin Dosing by Pharmacy- FOLLOW UP Daryn Guillermo is a 77 y.o. year old female [...] The next level will be obtained on 813 at AM labs. May be obtained sooner if clinically indicated. Will continue to monitor renal function daily while on vancomycin and order serum creatinine at least every 48 hours if not already ordered. Follow for continued vancomycin needs, clinical response, and signs/symptoms of toxicity. Raul Chaney PharmD * Carrington De Los Santos MD - 11/19/2023 7:03 AM EDT Daryn Guillermo is a 77 y.o. female on day [...] 8/ s/p IR guided T spine biopsy 11/13 [...] Note, 11/19/2023: History of Present Illness Daryn Guillermo is a 77 y.o. female currently on [...] Value Ventricular Rate 73 Atrial Rate 73 DC Interval 196 QRS Duration 106 QT Interval 384 QTC Calculation(Bazett) 423 P Decatur -24 R Decatur -46 T Decatur -41 QRS Count 12 Q Onset 205 [...] as stated. This study was interpreted at [place], [place]. MACRO: None Signed by: Frankchetira Daronlindsay Barrientos 11/17/2023 6:46 AM Dictation workstation: [id number] CT guided percutaneous biopsy bone deep Result Date: 11/14/[address]-guided biopsy of the T7 vertebra. Specimens were sent to pathology/laboratory per requesting team. I was present for the entirety of the procedure as detailed above. I personally reviewed the images/study and I agree with the findings as stated by Justin Gatica MD. This study was interpreted at [place], [place]. MACRO: None Signed by: Caron Donaldson 11/14/2023 8:11 AM Dictation workstation: [id number] XR chest 1 view Result Date: 11/14/2023 1. No acute abnormality of the chest. 2. Mild retrocardiac and left basilar atelectasis. I personally reviewed the image(s)/study and resident interpretation as stated by Dr. Tiffanie Healy MD. I agree with the findings as stated. This study was interpreted at [place], [place]. MACRO: None Signed by: Bunny Asher 11/14/2023 7:48 AM Dictation workstation: [id number] MR lumbar spine w and wo IV [...] as stated. This study was interpreted at [place], [place]. MACRO: None Signed by: Lynda Bal 11/06/2023 1:29 PM Dictation workstation: [id number] MR thoracic spine w and wo IV [...] Lynda Bal 11/06/2023 1:24 PM Dictation workstation: [id number] MR cervical spine w and wo IV contrast Result Date: 11/06/2023 The examination is moderately degraded by patient motion artifact. Within this limitation, no evidence of focal osseous metastatic disease. No definite abnormal signal or enhancement within the cervical cord. Multilevel degenerative changes as detailed above. MACRO: None Signed by: Lynda Bal 11/06/2023 1:10 PM Dictation workstation: [id number] CT chest abdomen pelvis wo IV contrast [...] oxyCODONE, oxyCODONE, vancomycin Assessment & Plan Daryn Guillermo is a 77 y.o. female w/ PMHx of Afib (on Xeralto), COPD (?), DMII (A1c 7.2% 03/01) on day 8 of admission as a transfer from [facility] to [facility] for evaluation of back pain likely [...] is some anxiety related to son's (primary it support engineer) health condition and when she can return [...] Extended Emergency Contact Information Primary Emergency Contact: SHABBIR GUILLERMO Address: [address] [place] [phone] [facility] Relation: Son Preferred language: Mexican Industrial Gas Production Operator needed? No Secondary Emergency Contact: Rissa GUILLERMO Address: [address] [place] [phone] [facility] Relation: Son Preferred language: [employer] Industrial [employer] Production Operator needed? No Elias Pappas, MS4 11/19/2023 Associated [...] personal situation. Awaiting placement. * Hayley Meléndez, METALLOGRAPHIC TECHNICIAN - 11/18/2023 7:56 PM EDT Recreation Therapy [...] RN - 11/18/2023 3:31 PM EDT Transitional Carbonation Equipment Operator Progress Note: Pt is medically ready for discharge to SNF. Reviewed SNF referral results with pt. FOC is [facility]. SNF was notified they are FOC. Requested updated therapy notes for tomorrow. SNF will initiate precert once updated therapy notes are received. pilates coordinator will continue to follow for discharge planning needs. Opal LUNA, RN- Transitional Carbonation Equipment Operator (TCC) [phone] * Terry Lyons MD - 11/18/2023 9:05 AM EDT Daryn Guillermo is a 77 y.o. female on day [...] Note, 11/17/2023: History of Present Illness Daryn Guillermo is a 77 y.o. female currently on [...] Value Ventricular Rate 73 Atrial Rate 73 DC Interval 196 QRS Duration 106 QT Interval 384 QTC Calculation(Bazett) 423 P Decatur -24 R Decatur -46 T Decatur -41 QRS Count 12 Q Onset 205 [...] as stated. This study was interpreted at [place], [place]. MACRO: None Signed by: Pastor Barrientos 11/17/2023 6:46 AM Dictation workstation: [id number] CT guided percutaneous biopsy bone deep Result Date: 11/14/[address]-guided biopsy of the T7 vertebra. Specimens were sent to pathology/laboratory per requesting team. I was present for the entirety of the procedure as detailed above. I personally reviewed the images/study and I agree with the findings as stated by Justin Gatica MD. This study was interpreted at [place], [place]. MACRO: None Signed by: Caron Donaldson 11/14/2023 8:11 AM Dictation workstation: [id number] XR chest 1 view Result Date: 11/14/2023 1. No acute abnormality of the chest. 2. Mild retrocardiac and left basilar atelectasis. I personally reviewed the image(s)/study and resident interpretation as stated by Dr. Tiffanie Healy MD. I agree with the findings as stated. This study was interpreted at [place], [place]. MACRO: None Signed by: Bunny Asher 11/14/2023 7:48 AM Dictation workstation: [id number] MR lumbar spine w and wo IV [...] as stated. This study was interpreted at [place], [place]. MACRO: None Signed by: Lynda Bal 11/06/2023 1:29 PM Dictation workstation: [id number] MR thoracic spine w and wo IV [...] the STIR sequence. MACRO: None Signed by: Lynad Bal 11/06/2023 1:24 PM Dictation workstation: [id number] MR cervical spine w and wo IV contrast Result Date: 11/06/2023 The examination is moderately degraded by patient motion artifact. Within this limitation, no evidence of focal osseous metastatic disease. No definite abnormal signal or enhancement within the cervical cord. Multilevel degenerative changes as detailed above. MACRO: None Signed by: Lynda Bal 11/06/2023 1:10 PM Dictation workstation: [id number] CT chest abdomen pelvis wo IV contrast [...] oxyCODONE, oxyCODONE, vancomycin Assessment & Plan Daryn Guillermo is a 77 y.o. female w/ PMHx of Afib (on Xeralto), COPD (?), DMII (A1c 7.2% 03/01) on day 8 of admission as a transfer from [facility] to [facility] for evaluation of back pain likely [...] unspecified, thoracic region - S/p T5-T9 laminectomy 8, pain well controlled - Final Bcx no [...] Extended Emergency Contact Information Primary Emergency Contact: SHABBIR GUILLERMO Address: [address] [place] [phone] [facility] Relation: Son Preferred language: [employer] Industrial [employer] Production Operator needed? No Secondary Emergency Contact: Rissa GUILLERMO Address: [address] [place] [phone] [facility] Relation: Son Preferred language: [employer] Production Operator needed? No Thomas Hoffman MD, MSc Internal [...] MD - 11/17/2023 9:23 AM EDT Daryn Guillermo is a 77 y.o. female on day [...] (Rehab/SNF/etc) Type of Post Acute Facility Services long-term Expected Discharge Disposition SNF Does the patient [...] Met with pt and introduced myself as care process manager and member of the Care Transitions team [...] and other house hold items delivered from [email or web address]. Pt denies any falls. Pt stated she feels safe at home. Pt's address, phone number, and contact information was verified. Pt denies any social or financial concerns at this time. Home care: Yes Agency: [facility] [phone] Disciplines: Nurse came 1x to check vitals. DME: cane, walker, hospital bed. title search manager: none. PCP: Huan Gilman MD Last appt: Pt does a lot of virtual visits Transport to appts: Son Eva provides (they have a wheelchair accessible van). Pharm: [employer] [facility] mail order (denies issues affording/obtaining medications) Discharge Planning: Pt s/p OR for laminectomy with Neurosurgery team, awaiting final IV abx recs however, team anticipate pt will discharge on 6 week course of IV abx with tentative stop date of 12/25. Pt stated she recently discharged AMA from [facility] (she was there x20 days) because [...] to the following SNF's: [facility] Referrals sent to above facilities via [facility] to see if they can accept. Precert will be requiredprior to discharge. pilates coordinator will continue to follow for discharge planning needs. Kay Putnam RN Transitional Carbonation Equipment Operator/TCC [id number] * uR Santos MD - 11/16/2023 1:19 PM EDT Subjective Daryn Guillermo is a 77 y.o. female on hospital [...] undetermined Abnormal ECG Confirmed by Fabio Bee ([id number]) on 11/15/2023 2:34:28 PM No results found for this or any previous visit from the past 1095 days. Encounter Date: 11/09/23 ECG 12 Lead Result Value Ventricular Rate 73 Atrial Rate 73 DC Interval 196 QRS Duration 106 QT Interval 384 QTC Calculation(Bazett) 423 P Decatur -24 R Decatur -46 T Decatur -41 QRS Count 12 Q Onset 205 P Onset 107 P Offset 148 T Offset 397 QTC Fredericia 410 Narrative Atrial fibrillation Left axis deviation Low voltage QRS Cannot rule out Anterior infarct , age undetermined Abnormal ECG Confirmed by Fabio Bee ([id number]) on 11/15/2023 2:34:28 PM Assessment and Plan [...] with neurosurgery fate of the [place] Ru Santos MD Of note the above was done with [employer] dictation system. Note was proofread to minimize errors. * Linda Grace, Ramandeep - 11/16/2023 12:54 PM EDT Vancomycin Dosing by Pharmacy- FOLLOW UP Daryn Guillermo is a 77 y.o. year old female [...] MD - 11/16/2023 7:51 AM EDT Daryn Guillermo is a 77 y.o. female on day [...] DO - 11/15/2023 8:55 PM EDT Daryn Guillermo is a 77 y.o. female on day [...] signal on the STIR sequence. Assessment/Plan Connie Guillermo is a 77 y/o woman w/ hx [...] trough, CRP weekly and fax results to [phone] ATTN: Dr. Osoroi - Will arrange outpt ID follow up Will follow peripherally for final OR cultures, please reach out w/ questions and when pt is ready for discharge Megan Osorio DO Epic Chat or pager [phone] * TANIA Epperson - 11/15/2023 3:01 PM EDT Recreation Therapy [...] vision, n/v, numbness, weakness, tingling. * Ru Santos MD - 11/15/2023 12:35 PM EDT Subjective Daryn Guillermo is a 77 y.o. female on hospital day 6 with no new events. Back pain overall controlled and tolerated. Patient does complain of some discomfort when she urinates with Grimaldo catheter inplace Objective Exam Vitals: 11/14/23 2358 [...] Value Ventricular Rate 73 Atrial Rate 73 DC Interval 196 QRS Duration 106 QT Interval 384 QTC Calculation(Bazett) 423 P Decatur -24 R Decatur -46 T Decatur -41 QRS Count 12 Q Onset 205 [...] prophylaxis Physical therapy/Occupational Therapy when appropriate Ru Santos MD Of note the above was done with Rippldation system. Note was proofread to minimize errors. * Loretta Matamoros, OT - 11/15/2023 12:12 PM EDT Occupational Therapy Re-Evaluation/Treatment Patient Name: Daryn Guillermo : 1945 Today's Date: 11/15/23 Time Calculation [...] Shower/Tub: (sponge bathes) Prior Function: Level of [place]: Independent with ADLs and functional transfers, Needs assistance with homemaking (Sponge bath at baseline. Uses a bedpan at baseline does not transfer to the toilet.) Receives Help From: Family ADL Assistance: Independent (sponge bathes) Homemaking Assistance: (son completes) Ambulatory Assistance: (pt reports non-ambulatory and has not stood in a long time. pt reports she slides to [employer] (not with board)) IADL History: ADL: Eating [...] with Device: Total Toileting Deficit: (pt with grimaldo, requires total A for bed level regine [...] Moderate assistance, +2 Bed Mobility Comments 1: Idji-tn-nvnz instructions provided for log rolling technique, with [...] LUE LUE: Within Functional Limits Outcome Measures: [facility] Daily Activity Putting on and taking [...] Therapy Re-Evaluation & Treatment Patient Name: Daryn Guillermo Today's Date: 11/15/2023 Time Calculation Start Time: [...] sat EOB for 15 min Outcome Measures: [facility] Basic Mobility Turning from [...] MD - 11/15/2023 7:59 AM EDT Daryn Guillermo is a 77 y.o. female on day [...] to attempt to meet with pt another time.pilates coordinator will continue to follow for discharge planning needs. Kay Putnam RN Transitional Carbonation Equipment Operator/TCC [id number] * Elias Pappas - 11/14/2023 10:27 AM EDT Daryn Guillermo is a 77 y.o. female on day [...] and CT thoracic spine 11/06/2023. ACCESSION NUMBER(S): [id number] ORDERING CLINICIAN: RU SANTOS TECHNIQUE: INTERVENTIONALIST(S): MD Garett Chaudhari MD CONSENT: [...] the interventional CT scanner bed. An initial childbirth and infant care teacher image and axial noncontrast CT images of [...] Gatica MD. This study was interpreted at [place], [place]. MACRO: None Signed by: Caron Donaldson 11/14/2023 8:11 AM Dictation workstation: [id number] XR chest 1 view Narrative: Interpreted By: Bunny Asher and [place] Lesley STUDY: XR CHEST 1 VIEW; 11/13/2023 11:11 pm INDICATION: Signs/Symptoms:preop. COMPARISON: CT chest abdomen pelvis 11/06/2023 ACCESSION NUMBER(S): [id number] ORDERING CLINICIAN: RU SANTOS FINDINGS: AP upright radiograph of the chest [...] as stated. This study was interpreted at [facility], [place], [place]. MACRO: None Signed by: Bunny Asher 11/14/2023 7:48 AM Dictation workstation: [id number] Physical Exam BP 121/67 Pulse 60 Temp [...] tenderness Neuro: Aox4, CNII-XII intact Assessment/Plan Daryn Guillermo is a 77 y.o. female Ms Guillermo is a 77 y.o F w/ PMHx of Afib (on Xeralto), COPD (?), DMII (A1c 7.2% 03/01) on day 2 of admission as a transfer from [facility] to [facility] for evaluation of back pain likely [...] Elias Pappas, MS4 Associated attestation - Ru Santos MD - 11/14/2023 12:45 PM EDT I [...] prophylaxis Physical therapy/Occupational Therapy when appropriate Ru Santos MD Of note the above was done with [employer] dictation system. Note was proofread to minimize errors. * Trery Lyons MD - 11/14/2023 7:17 AM EDT Daryn Guillermo is a 77 y.o. female on day [...] Pappas - 11/13/2023 2:14 PM EDT Daryn Guillermo is a 77 y.o. female on day [...] and clinical correlation Confirmed by Sophie Florian ([id number]) on 11/06/2023 8:58:45 PM MR lumbar spine w and wo IV contrast Narrative: Interpreted By: Lynda Bal, STUDY: MRI of the lumbar spine without IV contrast; 11/06/2023 12:58 pm INDICATION: Signs/Symptoms:Abnormal thoracic CT scan, cancer staging. COMPARISON: None. ACCESSION NUMBER(S): [id number] ORDERING CLINICIAN: VERA HUANG TECHNIQUE: Sagittal and [...] stenosis, narrowing of the subarticular recess and nzlf-we-fxyzovnw bilateral neural foraminal stenosis. L3-L4: Disc bulge, [...] as stated. This study was interpreted at [facility], [place], [place]. MACRO: None Signed by: Lynda Bal 11/06/2023 1:29 PM Dictation workstation: [id number] MR thoracic spine w and wo IV contrast Narrative: Interpreted By: Lynda Bal, STUDY: MR THORACIC SPINE W AND WO IV CONTRAST; 11/06/2023 12:58 pm INDICATION: Signs/Symptoms:Abnormal thoracic CT scan, cancer staging. COMPARISON: None. ACCESSION NUMBER(S): [id number] ORDERING CLINICIAN: VERA HUANG TECHNIQUE: Sagittal T1, T2, STIR and axial T2 and T1 weighted MR images of the thoracic spine were obtained. FINDINGS: Counting was performed from the C2 vertebral body on the childbirth and infant care teacher image. Alignment: There is slightly exaggerated thoracic [...] spine with mild degenerative endplate changes and wukx-fh-uaccgcjn disc height loss. There is prevertebral infiltration [...] with moderate to severe spinal canal and qfph-ou-wzedzlxw bilateral neural foraminal stenosis. T9-T10, T10-T11: Degenerative [...] Lynda Bal 11/06/2023 1:24 PM Dictation workstation: [id number] MR cervical spine w and wo IV contrast Narrative: Interpreted By: Lynda Bal, STUDY: MR CERVICAL SPINE W AND WO IV CONTRAST; 11/06/2023 12:58 pm INDICATION: Signs/Symptoms:Abnormal CT thoracic spine, Cancer staging. COMPARISON: None. ACCESSION NUMBER(S): [id number] ORDERING CLINICIAN: VERA HUANG TECHNIQUE: Sagittal T1, [...] throughout the cervical spine. Varying degrees of rvgd-vi-pmowymzt disc height loss. Cord: Within the limitation [...] Lynda Bal 11/06/2023 1:10 PM Dictation workstation: [id number] CT chest abdomen pelvis wo IV contrast Narrative: STUDY: CT Chest, Abdomen, and Pelvis without IV Contrast; 11/06/2023, 08 INDICATION: Abnormal thoracic spine CT. COMPARISON: CT thoracic 11/06/2023, XR chest 10/09/2023, CT abd 01/05/2020. ACCESSION NUMBER(S): [id number] ORDERING CLINICIAN: VERA HUANG TECHNIQUE: CT of [...] back pain. COMPARISON: None available. ACCESSION NUMBER(S): [id number] ORDERING CLINICIAN: SKINNY STEEL TECHNIQUE: CT of [...] tenderness Neuro: Aox4, CNII-XII intact Assessment/Plan Daryn Guillermo is a 77 y.o. female Ms Guillermo is a 77 y.o F w/ PMHx of Afib (on Xeralto), COPD (?), DMII (A1c 7.2% 03/01) on day 2 of admission as a transfer from [facility] to [facility] for evaluation of back pain likely [...] risk) - 3.9% 30-day risk of , MA, or cardiac arrest Per patient and chart [...] Elias Pappas, MS4 Associated attestation - Ru Santos MD - 11/13/2023 3:58 PM EDT I [...] prophylaxis Physical therapy/Occupational Therapy when appropriate Ru Santos MD Of note the above was done with Rippldation system. Note was proofread to minimize errors. * Raul Chaney, PharmD - 11/13/2023 12:54 PM EDT Vancomycin Dosing by Pharmacy- FOLLOW UP Daryn Guillermo is a 77 y.o. year old female [...] signs/symptoms of toxicity. Raul Chaney, PharmD * Terry Lyons MD - 11/13/2023 8:52 AM EDT Daryn Guillermo is a 77 y.o. female on day [...] per primary Terry Lyons MD * Alonzo Antony OT - 11/12/2023 2:56 PM EDT Occupational Therapy Evaluation Patient Name: Daryn Guillermo Today's Date: 11/12/2023 Time Calculation Start Time: [...] Comments: Hospital bed Prior Function: Level of [place]: Independent with ADLs and functional transfers (Sponge [...] Within Functional Limits, , and Outcome Measures: [facility] Daily Activity Putting on and taking [...] 2:54 PM Alonzo Antony OTR/OTD Rehab Office: [phone] * Sophie Trevino, PT - 11/12/2023 2:21 PM EDT Physical Therapy Physical Therapy Evaluation Patient Name: Daryn Guillermo Today's Date: 11/12/2023 Time Calculation Start Time: [...] long time. pt reports she slides to [facility] (not with board)) Precautions: Precautions Medical Precautions: [...] (3/5) LLE LLE : (3/5) Outcome Measures: [facility] Basic Mobility Turning from your back [...] present: DANILO REHMAN Plan per Medical/Surgical team: Pt transferred from [facility] with multiple large lung nodules c/f mets, plan for IR for biopsy today and consult with ID regarding longterm IV abx plan. Neuro-surgery team, PT/OT consulted. Payer: [employer] Status: Inpatient Discharge disposition: PT/OT evals are pending, anticipate pt will need inpatient rehab based on current [facility] mobility score of 11. Potential Barriers: none ADOD: 11/14 Attempted to meet with pt this afternoon but she was resting in bed with her eyes closed, decision made not to aware pt/ assessment deferred to another date and time. pilates coordinator will continue to follow for discharge planning needs. Kay Putnam RN Transitional Carbonation Equipment Operator/TCC [id number] * Ru Santos MD - 11/12/2023 12:32 PM EDT Subjective Daryn Guillermo is a 77 y.o. female on hospital [...] Results from last 7 days Lab Units 11/12/2375611/11/23 0746 11/09/23 0303 WBC AUTO x10*3/uL 7.3 [...] hours Lab Units 11/12/2375611/11/23 1722 11/11/23 0746 ALK PHOS U/L 143* -- -- [...] and clinical correlation Confirmed by Sophie Florian ([id number]) on 11/06/2023 8:58:45 PM MR lumbar spine w and wo IV contrast Narrative: Interpreted By: Lynda Bal, STUDY: MRI of the lumbar spine without IV contrast; 11/06/2023 12:58 pm INDICATION: Signs/Symptoms:Abnormal thoracic CT scan, cancer staging. COMPARISON: None. ACCESSION NUMBER(S): [id number] ORDERING CLINICIAN: VERA HUANG TECHNIQUE: Sagittal and [...] stenosis, narrowing of the subarticular recess and ruwq-ja-avqiusxk bilateral neural foraminal stenosis. L3-L4: Disc bulge, [...] as stated. This study was interpreted at [place], [place]. MACRO: None Signed by: Lynda Bal 11/06/2023 1:29 PM Dictation workstation: [id number] MR thoracic spine w and wo IV contrast Narrative: Interpreted By: Lynda Bal, STUDY: MR THORACIC SPINE W AND WO IV CONTRAST; 11/06/2023 12:58 pm INDICATION: Signs/Symptoms:Abnormal thoracic CT scan, cancer staging. COMPARISON: None. ACCESSION NUMBER(S): [id number] ORDERING CLINICIAN: VERA HUANG TECHNIQUE: Sagittal T1, T2, STIR and axial T2 and T1 weighted MR images of the thoracic spine were obtained. FINDINGS: Counting was performed from the C2 vertebral body on the childbirth and infant care teacher image. Alignment: There is slightly exaggerated thoracic [...] spine with mild degenerative endplate changes and nbnf-ix-afbqhjot disc height loss. There is prevertebral infiltration [...] with moderate to severe spinal canal and pluf-af-kmiwnozt bilateral neural foraminal stenosis. T9-T10, T10-T11: Degenerative [...] Lynda Bal 11/06/2023 1:24 PM Dictation workstation: [id number] MR cervical spine w and wo IV contrast Narrative: Interpreted By: Lynda Bal, STUDY: MR CERVICAL SPINE W AND WO IV CONTRAST; 11/06/2023 12:58 pm INDICATION: Signs/Symptoms:Abnormal CT thoracic spine, Cancer staging. COMPARISON: None. ACCESSION NUMBER(S): [id number] ORDERING CLINICIAN: VERA HUANG TECHNIQUE: Sagittal T1, [...] throughout the cervical spine. Varying degrees of irex-ih-pvweazxc disc height loss. Cord: Within the limitation [...] Lynda Bal 11/06/2023 1:10 PM Dictation workstation: [id number] CT chest abdomen pelvis wo IV contrast Narrative: STUDY: CT Chest, Abdomen, and Pelvis without IV Contrast; 11/06/2023, 0805 INDICATION: Abnormal thoracic spine CT. COMPARISON: CT thoracic 11/06/2023, XR chest 10/09/2023, CT abd 01/05/2020. ACCESSION NUMBER(S): [id number] ORDERING CLINICIAN: VERA HUANG TECHNIQUE: CT of [...] back pain. COMPARISON: None available. ACCESSION NUMBER(S): [id number] ORDERING CLINICIAN: SKINNY STEEL TECHNIQUE: CT of [...] QT Interval 354 QTC Calculation(Bazett) 447 R Decatur -50 T Decatur 125 QRS Count 16 Q Onset 203 [...] and clinical correlation Confirmed by Sophie Florian ([id number]) on 11/06/2023 8:58:45 PM Assessment and Plan Back pain: Appears consistent with vertebral osteomyelitis/discitis. Overall lower suspicion related to small pulmonary nodules. -Consulting IR for vertebral biopsy. Will send for culture and pathology to rule out mets. May [id number] testing if cultures are negative. Patient be [...] prophylaxis Physical therapy/Occupational Therapy when appropriate Ru Santos MD Of note the above was done with [employer] dictation system. Note was proofread to minimize errors. * Gilbert Momin MD - 11/12/2023 10:05 AM EDT Subjective Daryn Guillermo is a 77 y.o. female presenting for [...] Lynda Bal 11/06/2023 1:10 PM Dictation workstation: [id number] CT chest abdomen pelvis wo IV contrast [...] glucagon, ipratropium- albuteroL, oxyCODONE, vancomycin Assessment Daryn Guillermo is a 77 y.o. 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 Presenting for progressive back pain, transferred from [facility] 11/08 for letty rosurgical evaluation, ID consulted [...] Medicine PGY2 ID Consult Team A Pager [phone] Epic Chat Preferred Associated attestation - Megan Osorio [...] Megan Osorio DO Epic Chat or pager [phone] * Carrington De Los Santos MD - 11/12/2023 8:29 AM EDT Daryn Guillermo is a 77 y.o. female on day [...] Carrington De Los Santos MD * Ru Santos MD - 11/11/2023 11:01 AM EDT Subjective Daryn Guillermo is a 77 y.o. female on hospital [...] full interpretation and clinical correlation Confirmed by Sohpie Florian ([id number]) on 11/06/2023 8:58:45 PM MR lumbar spine w and wo IV contrast Narrative: Interpreted By: Lynda Bal, STUDY: MRI of the lumbar spine without IV contrast; 11/06/2023 12:58 pm INDICATION: Signs/Symptoms:Abnormal thoracic CT scan, cancer staging. COMPARISON: None. ACCESSION NUMBER(S): [id number] ORDERING CLINICIAN: VERA HUANG TECHNIQUE: Sagittal and [...] stenosis, narrowing of the subarticular recess and ibte-dq-ferqwfxu bilateral neural foraminal stenosis. L3-L4: Disc bulge, [...] as stated. This study was interpreted at [place], [place]. MACRO: None Signed by: Lynda Bal 11/06/2023 1:29 PM Dictation workstation: [id number] MR thoracic spine w and wo IV contrast Narrative: Interpreted By: Lynda Bal, STUDY: MR THORACIC SPINE W AND WO IV CONTRAST; 11/06/2023 12:58 pm INDICATION: Signs/Symptoms:Abnormal thoracic CT scan, cancer staging. COMPARISON: None. ACCESSION NUMBER(S): [id number] ORDERING CLINICIAN: VERA HUANG TECHNIQUE: Sagittal T1, T2, STIR and axial T2 and T1 weighted MR images of the thoracic spine were obtained. FINDINGS: Counting was performed from the C2 vertebral body on the childbirth and infant care teacher image. Alignment: There is slightly exaggerated thoracic [...] spine with mild degenerative endplate changes and hngo-es-uczrrywf disc height loss. There is prevertebral infiltration [...] with moderate to severe spinal canal and mxuo-ou-mdrrovxs bilateral neural foraminal stenosis. T9-T10, T10-T11: Degenerative [...] Lynda Bal 11/06/2023 1:24 PM Dictation workstation: [id number] MR cervical spine w and wo IV contrast Narrative: Interpreted By: Lynda Bal, STUDY: MR CERVICAL SPINE W AND WO IV CONTRAST; 11/06/2023 12:58 pm INDICATION: Signs/Symptoms:Abnormal CT thoracic spine, Cancer staging. COMPARISON: None. ACCESSION NUMBER(S): [id number] ORDERING CLINICIAN: VERA HUANG TECHNIQUE: Sagittal T1, [...] throughout the cervical spine. Varying degrees of epco-ci-joqvmfau disc height loss. Cord: Within the limitation [...] Lynda Bal 11/06/2023 1:10 PM Dictation workstation: [id number] CT chest abdomen pelvis wo IV contrast Narrative: STUDY: CT Chest, Abdomen, and Pelvis without IV Contrast; 11/06/2023, 0805 INDICATION: Abnormal thoracic spine CT. COMPARISON: CT thoracic 11/06/2023, XR chest 10/09/2023, CT abd 01/05/2020. ACCESSION NUMBER(S): [id number] ORDERING CLINICIAN: VERA HUANG TECHNIQUE: CT of [...] back pain. COMPARISON: None available. ACCESSION NUMBER(S): [id number] ORDERING CLINICIAN: SKINNY STEEL TECHNIQUE: CT of [...] QT Interval 354 QTC Calculation(Bazett) 447 R Decatur -50 T Dec[place] 125 QRS Count 16 Q Onset 203 [...] and clinical correlation Confirmed by Sophie Florian ([id number]) on 11/06/2023 8:58:45 PM Assessment and Plan Back pain: Appears consistent with vertebral osteomyelitis/discitis. Overall lower suspicion related to small pulmonary nodules. -Consulting IR for vertebral biopsy. Will send for culture and pathology to rule out mets. May [id number] testing if cultures are negative. Patient be [...] prophylaxis Physical therapy/Occupational Therapy when appropriate Ru Santos MD Of note the above was done with [employer] dictation system. Note was proofread to minimize errors. * Bobby Gonzalez MD - 11/11/2023 10:34 AM EDT Daryn Guillermo is a 77 y.o. female on day [...] per primary Bobby Gonzalez MD * Ru Santos MD - 11/10/2023 2:49 PM EDT Subjective Daryn Guillermo is a 77 y.o. female on hospital [...] and clinical correlation Confirmed by Sophie Florian ([id number]) on 11/06/2023 8:58:45 PM MR lumbar spine w and wo IV contrast Narrative: Interpreted By: Lynda Bal, STUDY: MRI of the lumbar spine without IV contrast; 11/06/2023 12:58 pm INDICATION: Signs/Symptoms:Abnormal thoracic CT scan, cancer staging. COMPARISON: None. ACCESSION NUMBER(S): [id number] ORDERING CLINICIAN: VERA HUANG TECHNIQUE: Sagittal and [...] stenosis, narrowing of the subarticular recess and iuxv-dg-bindczyx bilateral neural foraminal stenosis. L3-L4: Disc bulge, [...] as stated. This study was interpreted at [facility], [place], [place]. MACRO: None Signed by: Lynda Bal 11/06/2023 1:29 PM Dictation workstation: [id number] MR thoracic spine w and wo IV contrast Narrative: Interpreted By: Lynda Bal, STUDY: MR THORACIC SPINE W AND WO IV CONTRAST; 11/06/2023 12:58 pm INDICATION: Signs/Symptoms:Abnormal thoracic CT scan, cancer staging. COMPARISON: None. ACCESSION NUMBER(S): [id number] ORDERING CLINICIAN: VERA HUANG TECHNIQUE: Sagittal T1, T2, STIR and axial T2 and T1 weighted MR images of the thoracic spine were obtained. FINDINGS: Counting was performed from the C2 vertebral body on the childbirth and infant care teacher image. Alignment: There is slightly exaggerated thoracic [...] spine with mild degenerative endplate changes and fbht-cq-xesuhoaw disc height loss. There is prevertebral infiltration [...] with moderate to severe spinal canal and qlyl-xn-pzjjeijz bilateral neural foraminal stenosis. T9-T10, T10-T11: Degenerative [...] Lynda Bal 11/06/2023 1:24 PM Dictation workstation: [id number] MR cervical spine w and wo IV contrast Narrative: Interpreted By: Lynda Bal, STUDY: MR CERVICAL SPINE W AND WO IV CONTRAST; 11/06/2023 12:58 pm INDICATION: Signs/Symptoms:Abnormal CT thoracic spine, Cancer staging. COMPARISON: None. ACCESSION NUMBER(S): [id number] ORDERING CLINICIAN: VERA HUANG TECHNIQUE: Sagittal T1, [...] throughout the cervical spine. Varying degrees of xxss-mo-bcpfblky disc height loss. Cord: Within the limitation [...] Lynda Bal 11/06/2023 1:10 PM Dictation workstation: [id number] CT chest abdomen pelvis wo IV contrast Narrative: STUDY: CT Chest, Abdomen, and Pelvis without IV Contrast; 11/06/2023804 INDICATION: Abnormal thoracic spine CT. COMPARISON: CT thoracic 11/06/2023, XR chest 10/09/2023, CT abd 01/05/2020. ACCESSION NUMBER(S): [id number] ORDERING CLINICIAN: VERA HUANG TECHNIQUE: CT of [...] back pain. COMPARISON: None available. ACCESSION NUMBER(S): [id number] ORDERING CLINICIAN: SKINNY STEEL TECHNIQUE: CT of [...] QT Interval 354 QTC Calculation(Bazett) 447 R Decatur -50 T [place] 125 QRS Count 16 Q Onset 203 [...] and clinical correlation Confirmed by Sophie Florian ([id number]) on 11/06/2023 8:58:45 PM Assessment and Plan Back pain: Appears consistent with vertebral osteomyelitis/discitis. Overall lower suspicion related to small pulmonary nodules. -Consulting IR for vertebral biopsy. Will send for culture and pathology to rule out mets. May [id number] testing if cultures are negative -Continue vancomycin [...] prophylaxis Physical therapy/Occupational Therapy when appropriate Ru Santos MD Of note the above was done with Rippldation system. Note was proofread to minimize errors. * Indio Ambrocio, PharmD - 11/10/2023 11:23 AM EDT Vancomycin Dosing by Pharmacy- FOLLOW UP Daryn Guillermo is a 77 y.o. year old female [...] The next level will be obtained on 86 at 1st am labs. May be obtained [...] Note, 11/10/2023: History of Present Illness Daryn Guillermo is a 77 y.o. female currently on [...] Units 11/09/23 0303 11/08/23 0523 11/07/23 0422 WBC AUTO x10*3/uL 8.8 7.8 7.8 HEMOGLOBIN g/dL 10.8* 10.3* 9.9* PLATELETS AUTO x10*3/uL 263 228 246 BMP: Results from last 7 days Lab Units 11/09/23 0303 11/08/23 0523 11/07/23 0422 11/06/23 0513 SODIUM mmol/L 132* -- [...] last 7 days Lab Units 11/09/23 0303 11/06/23 0513 AST U/L 22 14 ALT U/L [...] QT Interval 354 QTC Calculation(Bazett) 447 R [place] -50 T [place] 125 QRS Count 16 Q Onset 203 [...] and clinical correlation Confirmed by Sophie Florian ([id number]) on 11/06/2023 8:58:45 PM Imaging MR lumbar [...] as stated. This study was interpreted at [place], [place]. MACRO: None Signed by: Lynda Bal 11/06/2023 1:29 PM Dictation workstation: [id number] MR thoracic spine w and wo IV [...] Lynda Bal 11/06/2023 1:24 PM Dictation workstation: [id number] MR cervical spine w and wo IV contrast Result Date: 11/06/2023 The examination is moderately degraded by patient motion artifact. Within this limitation, no evidence of focal osseous metastatic disease. No definite abnormal signal or enhancement within the cervical cord. Multilevel degenerative changes as detailed above. MACRO: None Signed by: Lynda Bal 11/06/2023 1:10 PM Dictation workstation: [id number] CT chest abdomen pelvis wo IV contrast [...] albuteroL, oxyCODONE, vancomycin Assessment & Plan Daryn Guillermo is a 77 y.o. female Ms Guillermo is a 77 y.o F w/ PMHx of Afib (on Xeralto), COPD (?), DMII (A1c 7.2% 03/01 and Cellulitis on day 1 of admission as a transfer from [facility] to [facility] for work up of newly found [...] Extended Emergency Contact Information Primary Emergency Contact: SHABBIR GUILLERMO Address: [address] [place] [phone] [facility] Mobile Relation: Son Preferred language: Mexican Industrial Gas Production Operator needed? No Secondary Emergency Contact: Rissa GUILLERMO Address: [address] [place] [phone] [facility] Mobile Relation: Son Preferred language: Mexican Industrial Gas Production Operator needed? No Thomas Hoffman MD, MSc Internal Medicine PGY-1 11/10/2023' Associated attestation - Ru Santos MD - 11/14/2023 3:01 PM EDT I [...] MD - 11/10/2023 9:07 AM EDT Daryn Guillermo is a 77 y.o. female on day [...] per primary Bobby Gonzalez MD * Sebastian Crow PharmD - 11/09/2023 11:24 AM EDT Pharmacy Admission Order Reconciliation Review Daryn Guillermo is a 77 y.o. female admitted for [...] Sebastian Crow PharmD Transitions of Care Pharmacist [facility] Ambulatory and Retail Services Please reach out via Secure Chat for questions * Tracy Thompson [facility] - 11/09/2023 10:52 AM EDT Pharmacy Medication History Review Daryn Guillermo is a 77 y.o. female admitted for Discitis, unspecified, thoracic region. Pharmacy reviewed the patient's aoxgk-dd-uyfgvgxfg medications and allergies for accuracy. The list below reflects the updated COMMUNICATION CENTER COORDINATOR list. Comments regarding how patient may be [...] at discharge. Pharmacy has been updated to [facility]. Sources used to confirm home medication list include: Patient interview, OARRS, Care Everywhere, medication fill history, Discharge Summary 10/15/23. Medications added: None Medications modified: None Medications to be removed: Baclofen Below are additional concerns with the patient's COMMUNICATION CENTER COORDINATOR list. None to note Tracy Thompson [facility] Transitions of Care Pharmacist [facility] Ambulatory and Retail Services Please reach out via Secure Chat for questions, or if no response call [facility] or [facility] documented in this [facility] Work Phone: [phone]) 709-624408-13-2024 Miscellaneous Notes* Care Plan - Belgica York RN - 11/20/2023 12:17 AM EDT Problem: Skin Goal: Decreased wound size/increased tissue granulation at next dressing change 11/20/202312 by Belgica York RN Outcome: Progressing Flowsheets (Taken 11/15/2023648 by Raquel Velasquez LPN) Decreased wound size/increased [...] RN Outcome: Progressing Goal: Promote skin healing 11/20/2023 001 by Belgica York RN Flowsheets (Taken 11/20/202312) Promote skin healing: Turn/reposition every 2 hours/use positioning/transfer devices Protective dressings over bony prominences 11/20/2023 0006 by Belgica York RN Outcome: Progressing Problem: [...] 1510 by Sarah Zepeda RN Outcome: Progressing 11/17/2023 1510 by Sarah Zepeda RN Flowsheets (Taken 11/17/2023 [...] Labs, ECG/Telemetry: Yes Risks/Benefits/Alternatives Discussed with Patient/POA/Legal Pain Management Nurse Practitioner: Yes Stop Sign on Door: Yes Time [...] Atrial Junction Line Confirmation: ECG Lot #: [id number] Tool Grinder Set Up Operator Gear: Bard PICC Line Exp Date: 02/06/2025 Securement: [...] Prevent/manage excess moisture Outcome: Progressing Flowsheets (Taken 11/16/2023 0030) Prevent/manage excess moisture: Moisturize dry skin Goal: Promote skin healing Outcome: Progressing Flowsheets (Taken 11/16/2023 0030) Promote skin healing: Assess skin/pad under line(s)/device(s) [...] Note Date: 11/09/2023 - 11/14/2023 OR Location: [facility] OR Name: Daryn Guillermo, : 1945, Age: 77 y.o., , Sex: female Diagnosis Pre-op Diagnosis * Discitis, unspecified, thoracic region [M46.44] Post-op Diagnosis * Discitis, unspecified, thoracic region [M46.44] Procedures T5-T9 laminectomy for decompression and evacuation of epidural phlegmon Surgeons * Braulio Oneil - Primary Resident/Fellow/Other School Psychologist Assistant: Surgeons and Role: * Giovanna Coles MD - Resident - Assisting * Dyan Waldron MD - Resident - Assisting Procedure Summary Anesthesia: Anesthesia type not filed in the log. ASA: III Anesthesia Staff: Anesthesiologist: Cameron Matos MD; Carolina Bright MD C-AA: YUDITH Mo Spray Applicator: Miles Vidal MD Estimated Blood Loss: 150 [...] TISSUE/WOUND CULTURE/SMEAR Braulio Oneil MD PhD 11/14/2023 065 B : LEFT LATERAL EPIDURAL Swab SPINE TISSUE/WOUND CULTURE/SMEAR Braulio Oneil MD PhD 11/14/2023 175 Staff: Payroll Accounting Manager: Jennie Payroll Accounting Manager: Kya Scrub Person: Jessica Scrub Person: Stephanie Relief Payroll Accounting Manager: Yu Relief Scrub: Sujatha Relief Scrub: Lidija Relief Payroll Accounting Manager: Waqar Drains and/or Catheters: Closed/Suction Drain 1 Medial Back Other (Comment) 10 Fr. (Active) Urethral Catheter Coude;Latex 16 Fr. (Active) Implants: none Findings: left lateral recess and ventral phlegmon Indications: Daryn Guillermo is an 77 y.o. female who is [...] intubation. [facility] and all pressure points [...] closure. First we left a 10 round Wolof drain and a subfascial layer. Muscle and [...] Radiology Brief Postprocedure Note Attending: Dr. Donaldson School Psychologist Assistant: Dr. Gatica Diagnosis: T6-T9 discitis/osteomyelitis Description of [...] Elyse - 11/11/2023 1:42 PM EDT Daryn Guillermo is a 77 y.o F w/ PMHx of Afib (on Xarelto for AC and atenolol for RC), HTN (on lisinopril and triamterene-hydrochlorothiazide), DMII (A1c 7.2% 03/01), SIADH, 6 year inability to ambulate who presented as a transfer from [facility] to [facility] on 11/09/23 for 4 weeks of back pain from suspected osteomyelitis/discitis and newly found multiple large lung nodules c/f metastatic disease. Patient was BIBA to [facility] and was admitted on 11/06/23 for intractable back pain. MRI showed concerns for osteomyelitis/discitis mid-lower thoracic spine (detailed above). She was started on vancomycin and Zosyn. Was transferred to [facility] on 11/09/23 and was continued on vancomycin [...] pain controlle dduring shift. documented in this [facility] Work Phone: 1(363) 256-587708-12-2024 Consult note* Carmen Rodriguez MD - 11/19/2023 3:00 PM EDTAssociated Order(s): Inpatient consult to Geriatric Medicine Inpatient consult to Geriatric Medicine Consult performed by: Carmen Rodriguez MD Consult ordered by: Sai Marie MD Primary Team: General Medicine Admit Date: 11/09/2023 Emergency Contact: Extended Emergency Contact Information Primary Emergency Contact: SHABBIR GUILLERMO Address: [address] [place] [address] [facility] Mobile Relation: Son Preferred language: Mexican Industrial Gas Production Operator needed? No Secondary Emergency Contact: Rissa GUILLERMO Address: [address] [place] [phone] [facility] Mobile Relation: Son Preferred language: Mexican Industrial Gas Production Operator needed? No Reason For Consult: Concern for adjustment disorder History Of Present Illness: Daryn Guillermo is a 77 y.o. female presenting with [...] 1 Application 1 Application Topical BID Le L Victor, MD 1 Application at 11/19/23 0900 oxyCODONE (Roxicodone) immediate release tablet 10 mg 10 mg oral q4h PRN Giovanna Coles MD 10 mg at 11/16/23 2214 oxyCODONE (Roxicodone) immediate release tablet 5 mg 5 mg oral q4h PRN Giovanna Coles MD 5 mg at 11/18/23 183 polyethylene glycol (Glycolax, Miralax) packet 34 g 34 g oral BID Giovanna Coles MD 17 g at [id number] [Held by provider] rivaroxaban (Xarelto) tablet 20 [...] Daily Giovanna Coles MD 75 mg at [id number] The patient's outpatient electronic medical record (EMR) is reviewed, notable information includes: 10/09-10/15/23: [facility] admitted for Acute Proteus Mirabilis UTI. 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 COMPARISON: 11/13/2023 chest radiograph ACCESSION NUMBER(S): [id number] ORDERING CLINICIAN: RU SANTOS FINDINGS: AP radiograph of the chest was [...] as stated. This study was interpreted at [facility], [place], [place]. MACRO: None Signed by: Pastor Barrientos 11/17/2023 6:46 AM Dictation workstation: [id number] Head/Brain Imaging No results found for this or any previous visit. No results found for this or any previous visit. DATA: EKG: QTC Encounter Date: 11/09/23 ECG 12 Lead Result Value Ventricular Rate 73 Atrial Rate 73 DC Interval 196 QRS Duration 106 QT Interval 384 QTC Calculation(Bazett) 423 P [place] -24 R [place] -46 T [place] -41 QRS Count 12 Q Onset 205 [...] likes music therapy and liked when her auxiliary plant operator from [place] came to visit before her surgery. Plan: Increase Effexor to 112.5mg daily Consult music therapy and resident caregiver services 2. Concern for cognitive impairment - [...] Goals of Care: -Health care power of family law attorney:No -Living will:No Code status:DNR/DNI 4M AGE-FRIENDLY [...] over the weekend, please page Geriatrics pager [phone] Consult Billing Time Prep time on date of patient encounter(minutes):30 Time directly with patient/family/caregiver(minutes):65 Documentation time(minutes):30 TOTAL TIME(minutes):125 Carmen Rodriguez MD * Kemi Martinez RN - 11/12/2023 6:18 PM EDTAssociated Order(s): WOUND OSTOMY NURSING CONSULT Images from the original note were not included. Wound Care Consult Visit Date: 11/12/2023 Patient Name: Daryn Guillermo Date of : 1945 Reason for Consult: Wound to right lower leg Wound History: Ms Guillermo is a 77 y.o F w/ PMHx of Afib (on Xeralto), COPD (02?), DMII (A1c 7.2% 03/01 and Cellulitis presents as a transfer from [facility] to [facility] for work up of newly found multiple large lung nodules c/f metastatic disease. Pertinent Labs: Albumin Date Value Ref Range Status 11/12/2023 2.8 (L) 3.4 - 5.0 g/dL Final Wound Assessment: Wound 11/06/23 Traumatic Leg Right;Lower (Active) Wound Image 11/12/23 1604 Site Assessment [place] 11/12/23 1604 Regine-Wound Assessment Hypopigmented 11/12/23 1604 [...] re consult for worsening of wounds. KEMI MARTINEZ RN, BSN, CWOCN 11/12/2023 6:18 PM * Gilbert Momin MD - 11/09/2023 2:33 PM EDTAssociated Order(s): Inpatient consult to Infectious Diseases Inpatient consult to Infectious Diseases Consult performed by: Gilbert Momin MD Consult ordered by: Ru Santos MD Subjective Daryn Guillermo is a 77 y.o. female transferred from [facility] for neurosurgical evaluation for back pain starting [...] ago, at which time she presented to [facility]. Imaging atthat time was most consistent with [...] was not relieved by acetaminophen. Imaging at [facility] was concerning for osteomyelitis with perivertebral abscesses as well as multiple new large pulmonary nodules. Blood cultures drawn and started on vanc/zosyn, which was changed to vanc/cefepime on admission to [facility]. Objective Physical Exam Constitutional: General: She is [...] glucagon, ipratropium- albuteroL, oxyCODONE, vancomycin Assessment Daryn Guillermo is a 77 y.o. female transferred from [facility] for neurosurgical evaluation for back pain starting [...] MD PGY2 ID Consult Service A Pager [phone] Associated attestation - Megan Osorio DO - [...] course. She is receptive to speaking w/ resident caregiver services and other support services offered while inpatient. Recommendations: -Cont IV vanc, dosed w/ pharmacy -Cont IV pip-tazo 3.375gm q6H -Will follow up blood cx and IR biopsy plans, when collected please send for pathology and gram stain w/ bacterial cx; if no growth will request 16s testing Will follow Megan Osorio DO Epic Chat or pager [phone] * Raul Burgos, PharmD - 11/09/2023 3:09 AM EDTAssociated Order(s): PHARMACY TO DOSE VANCO Vancomycin Dosing by Pharmacy- INITIAL Daryn Guillermo is a 77 y.o. year old female [...] loading dose. Patient is a transfer from [facility] and last dose taken was 1750mg 11/07 [...] clinical response, and signs/symptoms of toxicity. Raul Burgos PharmD * Bobby Gonzalez MD - 11/09/2023 3:00 AM EDTAssociated Order(s): Inpatient consult to Neurosurgery Inpatient consult to Neurosurgery Consult performed by: Bobby Gonzalez MD Consult ordered by: Ru Santos MD Date of Service: 11/09/2023 Attending Provider: Ru Santos MD Reason for Consultation: Daryn Guillermo is being seen today for a consult requested by Ru Santos MD for discitis. Subjective History of Present [...] as stated. This study was interpreted at [place], [place]. MACRO: None Signed by: Lynda Bal 11/06/2023 1:29 PM Dictation workstation: [id number] Assessment/Plan Assessment: aDryn is a 77 y.o. female with h/o [...] note signed by attending documented in this [facility] Work Phone: 1(778) 886-327508-12-2024 Hospital Discharge instructions* Discharge Instructions* Elias Pappas - 11/19/2023 1:51 PM EDT Dear Ms. Guillermo, You came to the hospital due to [...] controlled. We recommended you go to a intermediate facility for a period of time to [...] Everywhere. * Peripherally-Inserted Central Catheter Discharge Instructions (Mexican) * Osteomyelitis in adults (Mexican) documented in this [facility] Work Phone: 1(341) 929-460408-06-2024 History and physical note* Jadyn Chan MD - 11/13/2023 8:00 AM EDT H&P reviewed. The patient was examined and there are no changes to the H&P. Source Note - Bobby Gonzalez MD - 11/09/2023 3:00 AM EDT Inpatient consult to Neurosurgery Consult performed by: Bobby Gonzalez MD Consult ordered by: Ru Santos MD Date of Service: 11/09/2023 Attending Provider: Ru Santos MD Reason for Consultation: Daryn Guillermo is being seen today for a consult requested by Ru Santos MD for discitis. Subjective History of Present [...] as stated. This study was interpreted at [place], [place]. MACRO: None Signed by: Lynda Bal 11/06/2023 1:29 PM Dictation workstation: [id number] Assessment/Plan Assessment: Daryn is a 77 y.o. [...] ADMISSION NOTE History of Present Illness Ms Guillermo is a 77 y.o F w/ PMHx of Afib (on Xeralto), COPD (02?), DMII (A1c 7.2% 03/01 and Cellulitis presents as a transfer from [facility] to [facility] for work up of newly found multiple large lung nodules c/f metastatic disease. At baseline patient is non-ambulatory and uses motorized scooter inside the house. She is bedbound most of the day and her primary caregiver is her son who is currently admitted at [facility]. Patient was in her usual state [...] from last 7 days Lab Units 11/08/23 0511/07/2342111/06/23 0513 WBC AUTO x10*3/uL 7.8 7.8 10.8 HEMOGLOBIN g/dL 10.3* 9.9* 11.6* HEMATOCRIT % 33.3* 32.4* 37.0 PLATELETS AUTO x10*3/uL 228 246 353 Results from last 7 days Lab Units 11/08/23 0511/07/23 0422 11/06/23 0513 SODIUM mmol/L -- 133* [...] present. Left lower leg: Edema present. Comments: [place] appearing BL lower extremities. Skin: General: Skin [...] exists for component: EARNEST @ANTIBIOTCS@ Assessment/Plan Ms Guillermo is a 77 y.o F w/ PMHx of Afib (on Xeralto), COPD (02?), DMII (A1c 7.2% 03/01 and Cellulitis presents as a transfer from [facility] to [facility] for work up of newly found [...] NPO Diet; Effective now Diet effective now 11/09/237 A: pIV DVT: Rivaroxaban 20 mg (home med) GI: Not indicated Bowel Regimen: Miralax, docusate Code Status: DNR and No Intubation (confirmed on admission) NOK: Eva Guillermo (son): [phone] Not yet staffed with the attending. Eulalia Champagne MD PGY-2 Internal Medicine Associated attestation - Ru Santos MD - 11/09/2023 12:46 PM EDT I [...] started when her son was and the vtymgktk-pg-faz and grandchild left the home le aving patient depressed. documented in this [facility] Work Phone: 1([phone]) 233-566907-08-2024 Nurse Note* Fátima Guadarrama RN - 10/15/2023 5:52 PM EDT Called Robbie Reyes and gave report. [place]07-08-2024 Nurse Note* Fátima Guadarrama RN - 10/15/2023 5:52 PM EDT Called Robbie Reyes and gave report. * Yennifer Gregg RN - 10/12/2023 6:34 PM EDT 10/11/23 am to 10/12/23 pm 963 ml intake only. Pt is declining meals. documented in this [facility] Work Phone: 1(574) 291-173207-08-2024 Hospital Discharge instructions* Discharge Instructions* Sonya Hackett RN - 10/15/2023 5:05 PM EDT Hyponatremia The Basics Written by the doctors and editors at [facility] What is hyponatremia? -- Hyponatremia is [...] take care of yourself. documented in this [facility] Work Phone: 1(554) 215-188807-08-2024 Plan of care note* Care Plan - [...] goals for the shift include pain control [place] Work Phone: [phone]) [phone] Miscellaneous Notes* Care Plan - Fátima Guadarrama [...] excess moisture Outcome: Progressing Flowsheets (Taken 10/14/2023 101) Prevent/manage excess moisture: Moisturize dry skin Goal: [...] plan/prevention/treatment measures Outcome: Progressing Flowsheets (Taken 10/10/2023 112) Participates in plan/prevention/treatment measures: Elevate heels Goal: [...] no focal motor deficits. documented in this [facility] Work Phone: [phone]) 678-933007-08-2024 Note* Significant Event - BILL Vizcaino - [...] and accurate reflection of the individual's condition. [place] Work Phone: 1(774) 715-980307-08-2024 History of Present illness Narrative* BILL Vizcaino - 10/15/2023 3:41 PM EDT Pt reviewed during Care Rounds today and she continues to be ready for discharge. Update in CarePort from [facility] that auth was not started over the weekend. SW met with pt to review her plan and the IM. Pt confirms her desires to discharge to [facility] and understands we are waiting on auth which was not started until today. Precert request sent to [facility] and is pending. Updatesattached in Careport for [facility]- they do not need a COVID. Care Transitions will continue to follow. ADDM: Update from [facility] that auth has been approved. Update in [facility]port to [facility] and they can accept today. Final updates/orders attached in Careport and the hospital exemption was completed by [facility]. Transportation arranged for 6pm. No further needs identified. BILL Vizcaino * Dorota Cavazos, MAYCO-PALOMA - 10/14/2023 1:24 PM EDT Daryn Guillermo is a 77 y.o. female on day [...] scan of the abdomen 01/05/2020 ACCESSION NUMBER(S): [id number] ORDERING CLINICIAN: FLAVIO AQUINO TECHNIQUE: Axial noncontrast CT images of the [...] Normal caliber. GALLBLADDER: Status post cholecystectomy. PANCREAS: Butv-sv-aknjkczn fatty atrophy of the pancreas. SPLEEN: Splenomegaly [...] Vlad Araya 10/10/2023 3:17 AM Dictation workstation: [id number] XR chest 1 view Narrative: Interpreted By: Vlad Araya, STUDY: XR CHEST 1 VIEW; 10/10/2023 2:03 am INDICATION: Signs/Symptoms:weakness. COMPARISON: Chest x-ray 09/08/2022 ACCESSION NUMBER(S): [id number] ORDERING CLINICIAN: FLAVIO AQUINO FINDINGS: Multiple overlying leads are present. CARDIOMEDIASTINAL SILHOUETTE: Cardiomediastinal silhouette is stable in size and configuration. LUNGS: No consolidation, pleural effusion or pneumothorax. ABDOMEN: No remarkable upper abdominal findings. BONES: Multilevel degenerative changes of the spine. Bilateral shoulder osteoarthrosis. Impression: No acute cardiopulmonary process. MACRO: None Signed by: Vlad Araya 10/10/2023 2:11 AM Dictation workstation: [id number] Physical Exam General Appearance: AAO x 3, [...] Yang - 10/13/2023 2:26 PM EDT Daryn Guillermo is a 77 y.o. female on day [...] but he is currently an inpatient at [facility] with cystic fibrosis and a second son will arrive home from [place] sometime later today. Patient states she is [...] scan of the abdomen 01/05/2020 ACCESSION NUMBER(S): [id number] ORDERING CLINICIAN: FLAVIO AQUINO TECHNIQUE: Axial noncontrast CT images of the [...] Normal caliber. GALLBLADDER: Status post cholecystectomy. PANCREAS: Kkzf-ek-brwocgrx fatty atrophy of the pancreas. SPLEEN: Splenomegaly [...] Vlad Araya 10/10/2023 3:17 AM Dictation workstation: [id number] XR chest 1 view Narrative: Interpreted By: Vlad Araya, STUDY: XR CHEST 1 VIEW; 10/10/2023 2:03 am INDICATION: Signs/Symptoms:weakness. COMPARISON: Chest x-ray 09/08/2022 ACCESSION NUMBER(S): [id number] ORDERING CLINICIAN: FLAVIO AQUINO FINDINGS: Multiple overlying leads are present. CARDIOMEDIASTINAL SILHOUETTE: Cardiomediastinal silhouette is stable in size and configuration. LUNGS: No consolidation, pleural effusion or pneumothorax. ABDOMEN: No remarkable upper abdominal findings. BONES: Multilevel degenerative changes of the spine. Bilateral shoulder osteoarthrosis. Impression: No acute cardiopulmonary process. MACRO: None Signed by: Vlad Araya 10/10/2023 2:11 AM Dictation workstation: [id number] Physical Exam General Appearance: AAO x 3, [...] Hyponatremia -History of SIADH -[facility] following-recommends continue following fluid restriction. [...] for discharge. SW met w/ Pt at bedside.CATALINA advised Pt that per responses in CP neither [facility] or [facility] are able to accept Pt for placement. SW provided Pt with list for additional choices in the surrounding area and Pt Ok'd referrals to additional facilities. SW sent referrals to facilities in per Pt's choice. Avoidable days entered. SW tofollow for acceptance, choice, and precert. Plan is for Pt to discharge to [facility]. 1555 SW met w/ Pt at bedside. Advised Pt of accepting facilities and [facility] with a semi-private room. CATALINA sent message to [facility] to indicate they are FOC. Discharge plan is [facility] pending precert. SW to follow. * MACARENA Yang - 10/12/2023 5:39 PM EDT Daryn Guillermo is a 77 y.o. female on day [...] scan of the abdomen 01/05/2020 ACCESSION NUMBER(S): [id number] ORDERING CLINICIAN: FLAVIO AQUINO TECHNIQUE: Axial noncontrast CT images of the [...] Normal caliber. GALLBLADDER: Status post cholecystectomy. PANCREAS: Lqmf-vu-kdyoxjha fatty atrophy of the pancreas. SPLEEN: Splenomegaly [...] Vlad Araya 10/10/2023 3:17 AM Dictation workstation: [id number] XR chest 1 view Narrative: Interpreted By: Vlad Araya, STUDY: XR CHEST 1 VIEW; 10/10/2023 2:03 am INDICATION: Signs/Symptoms:weakness. COMPARISON: Chest x-ray 09/08/2022 ACCESSION NUMBER(S): [id number] ORDERING CLINICIAN: FLAVIO AQUINO FINDINGS: Multiple overlying leads are present. CARDIOMEDIASTINAL SILHOUETTE: Cardiomediastinal silhouette is stable in size and configuration. LUNGS: No consolidation, pleural effusion or pneumothorax. ABDOMEN: No remarkable upper abdominal findings. BONES: Multilevel degenerative changes of the spine. Bilateral shoulder osteoarthrosis. Impression: No acute cardiopulmonary process. MACRO: None Signed by: Vlad Araya 10/10/2023 2:11 AM Dictation workstation: [id number] Physical Exam General Appearance: AAO x 3, [...] Therapy Physical Therapy Treatment Patient Name: Daryn Guillermo Today's Date: 10/12/2023 Time Calculation Start Time: [...] pain End of Session Communication: Bedside nurse, Carbonation Equipment Operator End of Session Patient Position: Bed, 3 [...] setting. pt needs extra time Outcome Measures: [facility] Basic Mobility Turning from your back [...] (Progressing) Start: 10/10/23 Expected End: 10/23/23 Daryn Guillermo will be mod independent with bed mobility for supine to and from sitting EOB with use of rail/trapeze PT Goal 2 (Progressing) Start: 10/10/23 Expected End: 10/23/23 Daryn Guillermo will transfer squat pivot to/from chair with CGa PT Goal 3 (Progressing) Start: 10/10/23 Expected End: 10/23/23 Patient will participate in 30 min PT session wtihout increase in pain Pain - Adult * Yennifer Gilbert, OT - 10/12/2023 11:57 AM EDT Occupational Therapy OT Treatment Patient Name: Daryn Guillermo Today's Date: 10/12/2023 Time Calculation Start Time: [...] Static Sitting-Level of Assistance: Close supervision Outcome Measures:[facility] Daily Activity Putting on and taking [...] as patient's WBC count is monitored. Per [facility], [facility] and [facility] are unable to accept patient. Per medical team, patient has been resisting idea of SNF. PT/OT have yet to see patient today. Truck Loader Overhead Crane attempted to meet with patient at bedside to review discharge plan. Patient very engaged with phone conversation. SW waited for a few moments and then offered to return later. Patient agreed. - 1115: Patient now working with PT/OT. SW to return. - 1530: Per PT/OT, patient's current [facility] scores are 9/13; More appropriate for care [...] follow and assist. ANGELICA Deras * Ru Mills DO - 10/12/2023 10:10 AM EDT Daryn Guillermo is a 77 y.o. female on day [...] expects to be discharged to: Home with [facility] vs SNF Spoke to FACTORY WORKER. Pt has 2 sons. The son that is the main caregiver is hospitalized at [facility]. Other son is in [place] for a wedding. Pt is functioning at [...] accept (no beds). PT has been to [facility] and wont go back. P used to workat [employer] and does not want to go there. Pt requests referral be made to [facility]. Unsure when son in hospital will be released. Anticipates son in [place] will return home Sunday/Sunday depending on flughts. I have not told him that I am sick. I don't want to ruin or cut short his vacation. Plan- TBD home with or without hhc vs SNF pending acceptance and precert. CT will follow. * Love Gibbs APRN-HARNESS INSPECTOR - 10/11/2023 10:15 AM EDT Daryn Guillermo is a 77 y.o. female on day [...] pelvis wo IV contrast Narrative: Interpreted By: Haidary, Ahmad, STUDY: CT ABDOMEN PELVIS WO IV CONTRAST; 10/10/2023 2:45 am INDICATION: Signs/Symptoms:back pain w/o injury. COMPARISON: CT scan of the abdomen 01/05/2020 ACCESSION NUMBER(S): [id number] ORDERING CLINICIAN: FLAVIO AQUINO TECHNIQUE: Axial noncontrast CT images of the [...] Normal caliber. GALLBLADDER: Status post cholecystectomy. PANCREAS: Rhpa-zn-gktwfnjj fatty atrophy of the pancreas. SPLEEN: Splenomegaly [...] Vlad Araya 10/10/2023 3:17 AM Dictation workstation: [id number] XR chest 1 view Narrative: Interpreted By: Vlad Araya, STUDY: XR CHEST 1 VIEW; 10/10/2023 2:03 am INDICATION: Signs/Symptoms:weakness. COMPARISON: Chest x-ray 09/08/2022 ACCESSION NUMBER(S): [id number] ORDERING CLINICIAN: FLAVIO AQUINO FINDINGS: Multiple overlying leads are present. CARDIOMEDIASTINAL SILHOUETTE: Cardiomediastinal silhouette is stable in size and configuration. LUNGS: No consolidation, pleural effusion or pneumothorax. ABDOMEN: No remarkable upper abdominal findings. BONES: Multilevel degenerative changes of the spine. Bilateral shoulder osteoarthrosis. Impression: No acute cardiopulmonary process. MACRO: None Signed by: Vlad Araya 10/10/2023 2:11 AM Dictation workstation: [id number] Physical Exam General Appearance: AAO x 3, [...] 75 mL/hr, Last Rate: 75 mL/hr (10/11/23 8533) PRN medications PRN medications: acetaminophen, albuterol, baclofen, [...] facility. -PT OT, patient will need placement intermediate facility. #4 chronic atrial fibrillation - Initial [...] services Type of Post Acute Facility Services long-term Type of Home Care Services Home OT;Home PT;Home nursing visits Patient expects to be discharged to: Home with hc new vs SNF Does the patient need [...] in December (per pt) Pharmacy is either [email or web address] or [facility]- takes meds as prescribed, able to afford and obtain. Non insulin dependent DM II checking sugar a couple times a week. Pt lives with son, is either wheelchair or bedbound, has not walked in several years. Has and uses power chair, wheelchair, trapeze bar. Per care rounds pt tearful on talk of SNF dueto bad experience at [facility]. Discussed same with pt who states, Not [facility]. [facility] but would have to talk to [...] Therapy Physical Therapy Evaluation Patient Name: Daryn Guillermo Today's Date: 10/10/2023 Time Calculation Start Time: [...] pain End of Session Communication: Bedside nurse, Carbonation Equipment Operator End of Session Patient Position: Bed, 3 [...] Prior Function Per Pt/Caregiver Report Level of [place]: Independent with ADLs and functional transfers Receives [...] she will try again tomorrow) Outcome Measures: [facility] Basic Mobility Turning from your back [...] 1 Start: 10/10/23 Expected End: 10/23/23 Daryn Guillermo will be mod independent with bed mobility for supine to and from sitting EOB with use of rail/trapeze PT Goal 2 Start: 10/10/23 Expected End: 10/23/23 Daryn Guillermo will transfer squat pivot to/from chair with CGa PT Goal 3 Start: 10/10/23 Expected End: 10/23/23 Patient will participate in 30 min PT session wtihout increase in pain Pain - Adult Education Documentation Safety with mobility; * Yennifer Gilbert, OT - 10/10/2023 11:17 AM EDT Occupational Therapy Evaluation Patient Name: Daryn Guillermo Today's Date: 10/10/2023 Time Calculation Start Time: 943 Stop Time: 1004 Time Calculation (min): 20 min 306/306-A Assessment IP OT Assessment OT Assessment: pt having back spasms and feeling weak which impedes her ability to perform ADLs at PLOF. pt now needing assist for most ADLS. recommend skilled OT services in order to ensure return to PLOF. Prognosis: Fair End of Session Communication: Bedside nurse, Carbonation Equipment Operator End of Session Patient Position: Bed, 3 [...] bed and trapeze Prior Function: Level of [place]: Independent with ADLs and functional transfers Receives [...] Vision: No visual deficits Strength: Strength Comments: VAUGHN 4-/5 Outcome Measures: [facility] Daily Activity Putting on and taking [...] 10/10/23 Expected End: 10/24/23 documented in this [facility] Work Phone: 1(134) 412-832007-08-2024 Hospital course Narrative* Gunjan Mohr, SCRAP DROP CRANE OPERATOR-HARNESS INSPECTOR - 10/15/2023 9:08 AM EDT Discharge Diagnosis [...] Pending Labs Order Current Status Extra Urine Gonzalez Tube Collected (10/10/23 0328) Urinalysis with Reflex [...] Provider Department Center 12/18/2023 1:00 PM Huan Gilman MD [id number] [facility] 07/18/2024 1:00 PM MACARENA Natarajan, DNP [id number] [facility] MACARENA Etienne documented in this [facility] Work Phone: [phone] 110-231807-07-2024 Plan of care note* Care Plan - [...] next dressing change Outcome: Progressing Flowsheets (Taken 10/14/20231010) Decreased wound size/increased tissue granulation at next [...] excess moisture Outcome: Progressing Flowsheets (Taken 10/14/2023 101) Prevent/manage excess moisture: Moisturize dry skin Goal: [...] Recommendations to address these barriers include . [facility]07-06-2024 Plan of care note* Care Plan - [...] next dressing change Outcome: Progressing Flowsheets (Taken 10/13/2023 08) Decreased wound size/increased tissue granulation at next dressing change: Promote sleep for wound healing Goal: Participates in plan/prevention/treatment measures Outcome: Progressing Flowsheets (Taken 10/13/2023 08) Participates in plan/prevention/treatment measures: Increase activity/out of [...] Recommendations to address these barriers include . [facility] Work Phone: 1(672) 777-549807-05-2024 Plan of care note* Care Plan - [...] Pain less than 3/10 through this shift [facility]07-05-2024 Nurse Note* Yennifer Gregg RN - 10/12/2023 6:34 PM EDT 7/24 am to 724 pm 963 ml intake only. Pt is declining meals. [facility] Work Phone: [phone] Plan of care note* Care Plan - [...] by end of the shift Outcome: Progressing [facility] Work Phone: [phone]) 230-137507-04-2024 Plan of care note* Care Plan - [...] Outcome: Progressing Goal: Promote/optimize nutrition Outcome: Progressing [facility] Work Phone: [phone] Plan of care note* Care Plan - Yennifer Gregg RN - 10/11/2023 3:08 PM EDT The patient's goals for the shift include The clinical goals for the shift include remain comfortable, use call light for any needs through this shift. [facility] Work Phone: [phone]) [phone] Consult note* Ru Mills DO - 10/11/2023 11:13 AM EDTAssociated Order(s): IP CONSULT TO NEPHROLOGY Reason For Consult Hyponatremia History Of Present Illness Daryn Guilelrmo is a 77 y.o. female presenting with [...] consult Principal Problem: Hyponatremia Ru Mills DO [facility] Work Phone: 1([phone]) 650-115907-04-2024 Consult note* Ru Mills DO - 10/11/2023 11:13 AM EDTAssociated Order(s): IP CONSULT TO NEPHROLOGY Reason For Consult Hyponatremia History Of Present Illness Daryn Guillermo is a 77 y.o. female presenting with [...] Consult Visit Date: 10/10/2023 Patient Name: Daryn Guillermo Date of : 1945 Reason for Consult: [...] condition. Laurent Martínez RN Wound /Diabetic Education [phone] Laurent Martínez RN 10/10/2023 12:45 PM * [...] help prepare meals, has groceries delivered from [email or web address]. Does not like meat - cheese and [...] (kCal): 2100 kCal Method for Estimating Needs: [place] Jeor = 9460-7362 kcal Total Protein Estimated Needs (g): 100 [...] Yennifer Harper RDN, LD documented in this [facility] Work Phone: [phone]) [phone] Plan of care note* Care Plan - [...] goals for the shift include remain comortable [facility] Work Phone: [phone]) 831-178007-03-2024 Consult note* Laurent Martínez RN - 10/10/2023 12:14 PM EDT Images from the original note were not included. Wound Care Consult Visit Date: 10/10/2023 Patient Name: Daryn Guillermo Date of : 1945 Reason for Consult: [...] 10/10/23 1214 Site Assessment Dark edges;Granulation;Red 10/10/23 121 Regine-Wound Assessment Dark edges;Yellow-brown (Hemosiderin staining) 10/10/23 [...] condition. Laurent Martínez RN Wound /Diabetic Education [phone] Laurent Martínez RN 10/10/2023 12:45 PM [facility]07-03-2024 Consult note* Yennifer Harper RDN, LD - [...] help prepare meals, has groceries delivered from [email or web address]. Does not like meat - cheese and [...] (kCal): 2100 kCal Method for Estimating Needs: [place] St Jeor = 1577-0021 kcal Total Protein Estimated Needs (g): 100 [...] (min): 30 minutes Yennifer Harper RDN, LD [facility] Work Phone: [phone] Plan of care note* Care Plan - [...] next dressing change Outcome: Progressing Flowsheets (Taken 10/10/20231120) Decreased wound size/increased tissue granulation at next [...] include to remain comfortable throughout the shift. [facility] Work Phone: [phone] Note* Treatment Plan - Love Gibbs APRN-PALOMA - 10/10/2023 9:49 AM EDT Pt admitted [...] coherent and conversant, no focal motor deficits. [facility] Work Phone: [phone]) [phone] History and physical note* Renetta Romero MD - 10/10/2023 4:27 AM EDT HISTORY AND PHYSICAL EXAMINATION Daryn Russellnett 1945 77 y.o. [id number] 10/10/23 4:27 AM CHIEF COMPLAINT: Generalized weakness. [...] Date/Time CT abdomen pelvis wo IV contrast [[id number]] Collected: 10/10/23317 Order Status: Completed Updated: 10/10/23317 Narrative: Interpreted By: Vlad Araya, STUDY: CT ABDOMEN PELVIS WO IV CONTRAST; 10/10/2023 2:45 am INDICATION: Signs/Symptoms:back pain w/o injury. COMPARISON: CT scan of the abdomen 01/05/2020 ACCESSION NUMBER(S): [id number] ORDERING CLINICIAN: FLAVIO AQUINO TECHNIQUE: Axial noncontrast CT images of the [...] Normal caliber. GALLBLADDER: Status post cholecystectomy. PANCREAS: Optd-zu-ervqylqp fatty atrophy of the pancreas. SPLEEN: Splenomegaly [...] Vlad Araya 10/10/2023 3:17 AM Dictation workstation: [id number] XR chest 1 view [[id number]] Collected: 10/10/23211 Order Status: Completed Updated: 10/10/23211 Narrative: Interpreted By: Vlad Araya, STUDY: XR CHEST 1 VIEW; 10/10/2023 2:03 am INDICATION: Signs/Symptoms:weakness. COMPARISON: Chest x-ray 09/08/2022 ACCESSION NUMBER(S): [id number] ORDERING CLINICIAN: FLAVIO AQUINO FINDINGS: Multiple overlying leads are present. CARDIOMEDIASTINAL SILHOUETTE: Cardiomediastinal silhouette is stable in size and configuration. LUNGS: No consolidation, pleural effusion or pneumothorax. ABDOMEN: No remarkable upper abdominal findings. BONES: Multilevel degenerative changes of the spine. Bilateral shoulder osteoarthrosis. Impression: No acute cardiopulmonary process. MACRO: None Signed by: Vlad Araya 10/10/2023 2:11 AM Dictation workstation: [id number] Assessment/Plan Principal Problem: Hyponatremia #1 hyponatremia: In [...] PT OT, patient may need placement to intermediate facility. #4 chronic atrial fibrillation: Initial heart [...] resuscitated. Renetta Romero MD 10/10/23 6:44 AM [facility] Work Phone: [phone]) [phone] History and physical note* Renetta Romero MD - 10/10/2023 4:27 AM EDT HISTORY AND PHYSICAL EXAMINATION Daryn Guillermo 1945 77 y.o. [id number] 10/10/23 4:27 AM CHIEF COMPLAINT: Generalized weakness. [...] Date/Time CT abdomen pelvis wo IV contrast [[id number]] Collected: 10/10/23317 Order Status: Completed Updated: 10/10/23317 Narrative: Interpreted By: Vlad Araya, STUDY: CT ABDOMEN PELVIS WO IV CONTRAST; 10/10/2023 2:45 am INDICATION: Signs/Symptoms:back pain w/o injury. COMPARISON: CT scan of the abdomen 01/05/2020 ACCESSION NUMBER(S): [id number] ORDERING CLINICIAN: FLAVIO AQUINO TECHNIQUE: Axial noncontrast CT images of the [...] Normal caliber. GALLBLADDER: Status post cholecystectomy. PANCREAS: Jgvi-qn-lzddppfg fatty atrophy of the pancreas. SPLEEN: Splenomegaly [...] Vlad Araya 10/10/2023 3:17 AM Dictation workstation: [id number] XR chest 1 view [[id number]] Collected: 10/10/23211 Order Status: Completed Updated: 10/10/23211 Narrative: Interpreted By: Vlad Araya, STUDY: XR CHEST 1 VIEW; 10/10/2023 2:03 am INDICATION: Signs/Symptoms:weakness. COMPARISON: Chest x-ray 09/08/2022 ACCESSION NUMBER(S): [id number] ORDERING CLINICIAN: FLAVIO AQUINO FINDINGS: Multiple overlying leads are present. CARDIOMEDIASTINAL SILHOUETTE: Cardiomediastinal silhouette is stable in size and configuration. LUNGS: No consolidation, pleural effusion or pneumothorax. ABDOMEN: No remarkable upper abdominal findings. BONES: Multilevel degenerative changes of the spine. Bilateral shoulder osteoarthrosis. Impression: No acute cardiopulmonary process. MACRO: None Signed by: Vlad Araya 10/10/2023 2:11 AM Dictation workstation: [id number] Assessment/Plan Principal Problem: Hyponatremia #1 hyponatremia: In [...] PT OT, patient may need placement to intermediate facility. #4 chronic atrial fibrillation: Initial heart [...] MD 10/10/23 6:44 AM documented in this [facility] Work Phone: 1([phone]) 502-137207-03-2024 Emergency department Note* Flavio Aquino DO - 10/10/2023 1:14 AM EDT HPI [...] History provided by: EMS personnel and patient time study clerk used: No No data recorded Patient History [...] admit to their service. Procedure Procedures Flavio Aquino DO 10/10/23 0402 documented in this [facility] Work Phone: [phone]) 602-246707-03-2024 Physician Emergency department Note* Flavio Aquino DO - 10/10/2023 1:14 AM EDT HPI [...] History provided by: EMS personnel and patient time study clerk used: No No data recorded Patient History [...] admit to their service. Procedure Procedures Flavio Aquino DO 10/10/23 0402 [place] Work Phone: [phone]) 312-446005-13-2024 History of Present illness Narrative* Jojo You MA - 08/20/2023 3:30 PM EDT z * Huan Gilman MD - 08/20/2023 3:30 PM EDT Subjective Patient ID: Daryn Guillermo is a 77 y.o. female who presents for Med Management. Virtual or Telephone Consent An interactive audio and video telecommunication system which permits real time communications between the patient (at the originating site) and provider (at the distant site) was utilized to providethis telehealth service. Verbal consent was requested and obtained from Daryn Guillermo on this date, 08/20/23 for a telehealth [...] to keep elevated. Dr. Valdivia in July [facility] with good sodium in May. Cataracts - [...] Care - Established; Future documented in this [facility] Work Phone: [phone]) 158-186604-25-2024 History of Present illness Narrative* Dominique Shah PharmD - 08/02/2023 9:00 AM EDT Pharmacist Clinic: Anticoagulation Management Daryn Guillermo was referred to the Clinical Pharmacy Team for their anticoagulation management. Referring Provider: Marleen Sigala, ARVIN* PHARMACY ASSESSMENT Allergies Reviewed? Yes Home Pharmacy Reviewed? Yes, describe: fills w/ mail order, [facility] Affordability/Accessibility: cost is a barrier, patient will be screened for [facility] PAP, wheelchair bound and has trouble w/ transportation, patient's son helps pick remover medications if needed, son lives with her [...] mg/dL (03/06/23) The ASCVD Risk score (Hardy DK, et al., 2019) failed to calculate for the following reasons: The valid total cholesterol range is 130 to 320 mg/dL [id number] Score Appropriate? Yes - dx of afib [id number] Score: 5 Age > 75 (+2) Sex Female (+1) CHF hx No (+0) Hypertension hx Yes (+1) Stroke/TIA/thromboembolism hx No (+0) Vascular disease hx (prior MA, peripheral artery disease, aortic plaque) No (+0) [...] all patient questions and concerns - Discussed [facility] PAP and benefits to patient if needed in future - Counseled patient to take Xarelto with food RECOMMENDATIONS/PLAN Anticoagulation - continue current treatment regimen.. Xarelto 20 mg daily Affordability/Accessibility - Screen for [employer] Patient Assistance Program (PAP). Patient is expected to be eligible for this program. Patient declines screening for [facility] PAP at this time. Patient reports [...] and clinical pharmacy team. documented in this [facility] Work Phone: [phone]) 222-761904-12-2024 History of Present illness Narrative* Marleen Sigala, MAYCO-HARNESS INSPECTOR, DNP - 07/20/2023 2:30 PM EDT Images from the original note were not included. CHIEF COMPLAINT Follow up HISTORY OF PRESENT ILLNESS An interactive audio and video telecommunication system which permits real time communications between the patient (at the originating site) and provider (at the distant site) was utilized to providethis telehealth service. Verbal consent was requested and obtained from Daryn Guillermo on this date Cardiovascular hx: Atrial fibrillation, persistent: -[id number] Score of 5; currently on Xarelto 20mg; [...] results for input(s): ABO in the last 85874 hours. HEME/ENDO: Recent Labs 05/21/23 1533 03/06/23 [...] this interval not displayed. MICRO: Recent Labs 09/09/22453 CRP 29.42* No results found for the last 90 days. Notable Studies: imaging personally reviewed EKG:No results found for this or any previous visit (from the past 4464 hour(s)). Echocardiogram: [place] [address] ext-[phone], TRANSTHORACIC ECHOCARDIOGRAM REPORT Patient Name: DARYN GUILLERMO Reading Physician: [id number] Norman Valdivia MD Study Date: 09/11/2022 Referring ANGELIQUE CLARKE Physician: MRN/PID: [id number] PCP: Accession/Order#: [id number] Department [address] Location: Date of : 1945 Fellow: Gender: F Nurse: Admit Date: 09/08/2022 Kiln Charger: Asia Aquino RVT, BJ Admission Status: Inpatient - Additional Staff: Routine Height: 167.00 cm CC Report to: Weight: 116.00 kg Study Type: Echocardiogram BSA: 2.21 m2 Blood Pressure: 111 /70 mmHg Diagnosis/ICD: I48.0-Paroxysmal atrial fibrillation Indication: AFib Procedure/CPT: Echo Complete w Full Doppler-41632 Patient History: Pertinent History: Previous echo 02-14-2019. [...] LA Area A2C: 26.8 cm2 LA [place] A4C: 6.8 cm LA [place] A2C: 5.7 cm LA Volume Index: 44.3 [...] 1.1 m/s (0.6-0.9m/s) PV Max P.5 mmHg [id number] Norman Valdivia MD Electronically signed on 09/11/2022 at 11:54:26 AM Stress Testing: No results found for this or any previous visit from the past 1825 days. Cardiac Catheterization: No results found for [...] - Stable; continue atenolol 100 mg daily -[id number]-YCKk Score of 5; currently on Xarelto 20mg; [...] the patient's care. Marleen Sigala DNP, MAYCO, SCREEDMAN-C Division of Cardiovascular Medicine [facility] documented in this [facility] Work Phone: [phone]) 594-569503-26-2024 History of Present illness Narrative* Huan Gilman MD - 07/03/2023 1:00 PM EDT Subjective Patient ID: Daryn Guillermo is a 77 y.o. female who presents for Follow-up (ER for right foot contusion). Virtual or Telephone Consent An interactive audio and video telecommunication system which permits real time communications between the patient (at the originating site) and provider (at the distant site) was utilized to providethis telehealth service. Verbal consent was requested and obtained from Daryn Guillermo on this date, 07/03/23 for a telehealth [...] Good job with that documented in this [facility] Work Phone: 1(112) 517-968803-03-2024 Emergency department Note* Flavio Aquino DO - 06/10/2023 5:40 PM EST HPI [...] be further evaluated. History provided by: Patient time study clerk used: No [place] Coma Scale Score: 15 Patient History Past [...] at anytime if worse. Procedure Procedures Flavio Aquino DO 06/10/231850 documented in this [facility] Work Phone: [phone]) 559-193003-03-2024 Physician Emergency department Note* Flavio Aquino DO - 06/10/2023 5:40 PM EST HPI [...] be further evaluated. History provided by: Patient time study clerk used: No [place] Coma Scale Score: 15 Patient History Past [...] diabetes mellitus with diabetic chronic kidney disease ([facility]/HCC) 03/07/2022 Stage 3 chronic kidney disease due [...] at anytime if worse. Procedure Procedures Flavio Aquino DO 06/10/231850 [place] Work Phone: [phone]) 542-561601-12-2024 History of Present illness Narrative* Huan Gilman MD - 04/20/2023 2:30 PM EST Subjective Patient ID: Daryn Guillermo is a 77 y.o. female who presents for Follow-up. Virtual or Telephone Consent A telephone visit (audio only) between the patient (at the originating site) and the provider (at the distant site) was utilized to provide this telehealth service. Verbal consent was requested and obtained from Daryn Guillermo on this date, 04/20/23 for a telehealth [...] use of insulin (CMS/HCC) documented in this [facility] Work Phone: [phone]) [phone] History of Present illness Narrative* Huan Gilman MD - 03/13/2023 1:30 PM EST Subjective Patient ID: Daryn Guillermo is a 77 y.o. female who presents for Med Management (Increased depression). Virtual or Telephone Consent An interactive audio and video telecommunication system which permits real time communications between the patient (at the originating site) and provider (at the distant site) was utilized to providethis telehealth service. Verbal consent was requested and obtained from Daryn Guillermo on this date, 03/13/23 for a telehealth visit. HPI No longer has HHC. She is not able to get in here this time again Her package car driver lost his pickering to the [employer] van. She was all ready to go today. Could not use wheelchair van. That should be better nexttime. Glaucoma and cataracts - noted to have high pressure but not able to get back to treat. Has been referred to [facility] for a cataract and this in [...] palliative care. 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 Activity- she gets in [...] at bedside and uses bedpan. Goes to [facility] and slide over. Has a walkerbut uses [...] to prescribe this medication. Additional Information: Surrogates: Alexa. Review of Systems Objective There were no vitals taken for this visit. Physical Exam Video call. No distress. Good color. Good mood and affect and thought process. Assessment/Plan Diagnoses and all orders for this visit: Morbid obesity with BMI of 40.0-44.9, adult ([facility]) Diabetes 1.5, managed as type 2 ([facility]) - metFORMIN (Glucophage) 500 mg tablet; [...] cataract of both eyes documented in this [facility] Work Phone: [phone]) 756-591109-05-2023 History of Present illness Narrative* Huan Gilman MD - 12/12/2022 1:00 PM EDT Subjective Patient ID: Daryn Guillermo is a 76 y.o. female who presents for Med Management (Itching in regine area). HPI No longer has [facility]. She is not able to get [...] palliative care. 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 Activity- she gets in [...] and uses bedpan. Plans to go to [facility] and slide over. Has awalker but uses [...] talked to herabout it Additional Information: Surrogates: Alexa. Review of Systems Objective There were no [...] Visit Anxiety - Primary Asthma Atrial fibrillation (CMS/HCC) Benign essential hypertension Depression, major, single episode, moderate (CMS/HCC) Diabetes mellitus type 2, controlled (CMS/HCC) Diarrhea Generalized muscle weakness Hyperlipidemia Lumbar facet arthropathy Lymphedema of leg Morbid obesity with BMI of 40.0-44.9, adult (CMS/HCC) Neurodermatitis Personal history of colonic polyps Primary osteoarthritis of both knees Vitamin D deficiency [facility] Work Phone: 1(842) 571-202107-07-2023 History of Present illness Narrative* Huan Gilman MD - 10/13/2022 2:00 PM EDT Subjective Patient ID: Daryn Guillermo is a 76 y.o. female who presents for Follow-up (Was in hospital for uti, developed C. Diff and was at [facility]./Discuss ordering labs). Virtual or Telephone Consent A telephone visit (audio only) between the patient (at the originating site) and the provider (at the distant site) was utilized to provide this telehealth service. Verbal consent was requested and obtained from Daryn Guillermo on this date, 10/13/22 for a telehealth visit. [facility] and SNF follow up. Admit to [facility] 09/08-11/29. Then at [facility] for 2- 3 weeks. She says that was a horrible experience. Summary of hospitalization as follows: DARYN GUILLERMO is a 76 year old Female With [...] a blood pressure of 115/55 mmHg, heart vica431 beatsa minute, respiratory 20/min saturating 92% room [...] Is accepted 10/13/22 She was transferred to [facility] and developed diarrhea about 2 days after [...] get around BP today 113/56 Weight at [facility] was 248. Review of Systems Objective There were no vitals taken for this visit. Physical Exam Audio only so no exam. Oriented and able to communicate will with no distress. Assessment/Plan Problem List Items Addressed This Visit Asthma Atrial fibrillation ([facility]) - Primary Depression, major, single episode, moderate ([facility]) Diabetes mellitus type 2, controlled ([facility]) Relevant Orders Comprehensive Metabolic Panel Iron deficiency anemia Relevant Medications ferrous gluconate 324 (38 Fe) mg tablet Other Relevant Orders CBC Morbid obesity with BMI of 40.0-44.9, adult (CMS/[facility]) Weakness of both lower extremities Other Visit [...] HHC next week and needs that for [facility]. PT probably not going to be helpful. She is to start monitoring BS but has been good. documented in this [facility] Work Phone: [phone]) [phone] NoteSend Summary: Discharge Summary Providers: Provider RoleProvider Name ReferringThomas Powers Stephen PrimarySnyder, Roger Owen AttendingThomas Powers Note Recipients: Huan Gilman MD Discharge: Summary: Admission Date: .08-Sep-2022 12:17:00 [...] Intermediate Care Facility Vital Signs: T PRBPMAPSpO2 Value36.56792495/6596% Date/Time09/14 7:5309/14 7:5309/14 7:5309/14 7:5309/14 7:53 Range(36.3C - 36.8C ) (59 - 81 ) (16 - 20 ) (95 - 131 )/ (64 - 82 ) (96% - 98% ) Date: Weight/Scale Type:Height: 08-Sep-2022 19:23561.5 kg / qkg715.5 cm Physical Exam: Constitutional: Well developed, obese [...] no lesions, no rashes Hospital Course: DARYN GUILLERMO is a 76 year old Female With [...] Pending: None Radiology Results - Pending: None [facility] (more content not included)...[facility]06-03-2023 NoteClinical Event: Clinical Event Note: TopicClinic in [...] Note Last Updated: 09-Sep-2022 21:16 by Chidi Torres)[facility]06-02-2023 NoteHistory of Present Illness: Admission Reason: Bedbound, urinary tract infection HPI: DARYN GUILLERMO is a 76 year old Female With [...] a day. Objective: Objective Information: T PRBPMAPSpO2 Value37.2684601/7098% Date/Time09/08 16: 17: 17: 17: 17:30 Range(37.4C [...] Medications 1. Acetaminophen: 65 (more content not included)...[facility] 12-02-2021 Chief complaint Narrative - Reported* An interactive audio and video telecommunication system which permits real time communications between the patient (at the originating site) and provider (at the distant site) was utilized to providethis telehealth service. * Verbal consent was requested and obtained from DARYN GUILLERMO on this date, 12/02/2021 03:30 PM , for a telehealth visit. * [facility]: [phone]) [phone] Chief complaint Narrative - Reported* An interactive audio and video telecommunication system which permits real time communications between the patient (at the originating site) and provider (at the distant site) was utilized to providethis telehealth service. * Verbal consent was requested and obtained from DARYN GUILLERMO on this date, 09/01/2021 11:30 AM , for a telehealth visit. * [facility] certification F2F [facility] Work Phone: [phone]) 216-990901-01-2022 History of Present illness Narrative* Asthma - [...] no longer. 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 Done with all of that. She is [...] expected for medication profile * CSA 10/30/19 -[facility] Work Phone: [phone]) 377-254801-01-2022 History of Present illness Narrative* Asthma - [...] no longer. 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 Done with all of that. She is [...] expected for medication profile * CSA 10/30/19 [facility] Work Phone: [phone] History of Present illness Narrative* Finally able [...] no longer. 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 Done with all of that. She is [...] expected for medication profile * CSA 10/30/19 -[facility] Work Phone: [phone]) 777-176207-30-2021 Chief complaint Narrative - Reported* An interactive audio and video telecommunication system which permits real time communications between the patient (at the originating site) and provider (at the distant site) was utilized to providethis telehealth service. * Verbal consent was requested and obtained from DARYN GUILLERMO on this date, 11/05/2020 01:30 PM , for a telehealth visit. * Electric Wheelchair evaluation -[facility] Work Phone: [phone] History of Present illness Narrative* 75-year-old female [...] every day and has been largely controlled. Written Work Phone: [phone]) [phone] History of Present illness Narrative* 76-year-old female [...] * Problem #2 hypertension * -Controlled today [facility] Work Phone: Consult note Author Jones Greer [facility] Note Date/Time July 01, 2024 2:0 7pm [facility] Medical Records Department [address] [place] [address] Anesthesia Postop Eval I 07/01/24 1406 MR#: [id number] Acct: [id number] Name: DARYN GUILLERMO BLANE Rep #:[id number] 1 : 1945 78 From: Jones Greer PCP: April Mullen MD Status:REG SDC Y Race: C Location: [place] [address] Anesthesia: Postop Eval I Current Vital Signs [...] document: Postop Eval 1 completed: Yes 07/01/24 3769 <Electronically signed by Jones Greer > Date _ Jones Greer Marcialignfatou Signature: Date CC: ~ Signed [facility] Work Phone: Consult note Author Jurgen Rosario [facility] Note Date/Time October 28, 2024 11:3 4am [facility] Medical Records Department [address] [place] [address] Pre-Anesthesia Evaluation 10/28/24 1130 MR#: [id number] Acct: [id number] Name: DARYN GUILLERMO BLANE Rep #:[id number] : 1945 78 From: Jurgen Licea PCP: April Mullen MD Status:REG SDC Y Race: C Location: [place] [address] ASA Classification* ASA Classification ASA Classification: 4 (Low EF with severe Ao stenosis, being examined next monthfor TAVR. Alfonso CP.) Assessment & Plan Anesthesia* Anesthesia Assessment [...] Procedure(s): EGD Anesthesia History Anesthesia History - r d engineer: Anesthesia History - r d engineer Hx Hospitalization Yes: [facility] 10/21/24 08:35 Any [...] take am of surgery PONV PONV - r d engineer: PONV - r d engineer Female Yes 10/21/24 08:35 HX of Motion [...] 10/28/24 10:53 Respiratory Assessment Respiratory Assessment - r d engineer: Respiratory Tract Infection Hx - r d engineer Hx Respiratory Tract Infection No 10/21/24 08:35 STOP Sleep Apnea STOP Sleep Apnea - r d engineer: STOP Sleep Apnea - r d engineer Hx Hypertension Yes 10/21/24 08:35 Hx Sleep [...] Tobacco Use History Tobacco Use History - r d engineer: Tobacco Use History - r d engineer Tobacco Use Smoking Status Never smoker 10/21/24 08:35 Hx Tobacco Use No 10/21/24 08:35 Years Smoking Packs Smoked per Day Smoking Cessation Date was within the last 15 years Hx Smoking Cessation Date Hx Smoking Cessation Counseling Hematologic Medial History Hematologic Hx - r d engineer: 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 Specify any problems Hx of Preganancy in last 3 No 10/21/24 08:35 Months Nurse Filling Out Transfusion [facility] 10/21/24 08:35 & Questions: Date: 10/21/24 10/21/24 08:35 Time: 08:37 10/21/24 08:35 Patient unable to answer at this time (ie. confused, unrespo /Reproduction History /Reproductive History - r d engineer: /Reproductive Hx- r d engineer Hx Now No 10/21/24 08:35 Gestational Age [...] of irregular heartbeat Aortic stenosis Lives in snf Wears glasses Wears partial dentures Marijuana use [...] by Jurgen Rosario MD> Date _ Jurgen Cejaign Signature: Date CC: ~ Signed [facility] Work Phone: Consult note Author Jones Greer [facility] Note Date/Time October 28, 2024 12:2 9pm [facility] Medical Records Department [address] [place] [address] Anesthesia Postop Eval I 10/28/24 1228 MR#: [id number] Acct: [id number] Name: DARYN GUILLERMO BLANE Rep #:[id number] : 1945 78 From: Jones Greer PCP: April Mullen MD Status:REG SDC Y Race: C Location: [place] [address] Anesthesia: Postop Eval I Current Vital Signs [...] Jones Acevedo Signature: Date CC: ~ Signed [facility] Work Phone: Consult note [facility] Date/Time October 28, 2024 12:3 3pm [facility] Medical Records Department [address] [place] [address] Anesthesia Postop Eval II 10/28/24 1232 MR#: [id number] Acct: [id number] Name: DARYN GUILLERMO BLANE Rep #:[id number] : 1945 78 From: Jurgen Licea PCP: April Mullen MD Status:ABE VINCENT Y Race: C Location: [place] [address] Anesthesia Postop Eval I Sum Postop Eval [...] MD Cosigner Signature: Date CC: ~ Signed [facility] Work Phone: Consult note Author Savannah Delacruz [facility] Note Date/Time November 18, 2024 11 :06am [facility] Medical Records Department [address] [place] [address] Counseling Note - Pharmacy 11/18/24 0949 MR#: [id number] Acct: [id number] Name: DARYN GUILLERMO Rep #:[id number] : 1945 78 From: Savannah Delacruz PCP: Dr. Delgado Amaro, DO Status:ADM IN Y Location: [facility]- [id number] Pharmacy [place] Med Reconciliation Pharmacy Service has performed discharge medication reconciliation for this patient. Patient being discharged to [facility]. The patient's discharge medication list was reviewed for discrepancies and discrepancies were resolved. Medications at Discharge Home Medications cholecalciferol (vitamin D3) 25 mcg (1,000 unit) capsule 25 mcg PO DAILY 12/31/23 insulin lispro 100 unit/mL subcutaneous pen (Humalog KwikPen (U-100) Insulin) See Protocol subcut .TIDCM&HS 12/31/23 nystatin 100,000 unit/gram topical powder 1 applic topical BID PRN skin irritation 12/31/23 potassium chloride 10 mEq capsule,extended release 20 meq PO DAILY 12/31/23 melatonin 3 mg tablet 6 mg (2 x 3 mg) PO QHS #0 tabs 01/08/24 buspirone 5 mg tablet 5 mg PO BID 03/28/24 dapagliflozin propanediol 5 mg tablet (Farxiga) 5 mg PO DAILY 03/28/24 ferrous sulfate 325 mg (65 mg iron) tablet 325 mg PO QDAY 04/28/24 furosemide 20 mg tablet 40 mg PO QAM 04/28/24 Held on 11/18/24. Instructions: Resume on 11/20/24. pantoprazole 40 mg tablet,delayed release 40 mg PO QDAY #90 tabs 04/28/24 cyclobenzaprine 10 mg tablet 5 mg PO TID 06/10/24 acetaminophen 325 mg tablet 650 mg PO Q4H PRN Pain 1-5/10 Or Fever>100.7 06/30/24 albuterol sulfate 90 mcg/actuation aerosol inhaler 2 inh inhalation Q6H PRN shortness of breath or wheezing 06/30/24 guaifenesin 400 mg tablet 400 mg PO Q4H PRN cough 06/30/24 insulin glargine 100 unit/mL (3 mL) subcutaneous pen (Lantus Solostar U-100 Insulin) 8 unit subcut DAILY 06/30/24 polyethylene glycol 3350 17 gram/dose oral powder (Miralax) 17 g PO QODAY 06/30/24 apixaban 5 mg tablet (Eliquis) 5 mg PO BID #90 tabs 07/23/24 carvedilol 3.125 mg tablet 3.125 mg PO BID #180 tabs 07/31/24 docusate sodium 100 mg capsule 100 mg PO BID 10/09/24 venlafaxine 150 mg capsule,extended release 24 hr 150 mg PO QDAY 10/09/24 benzonatate 100 mg capsule 100 mg PO TID PRN cough 10/21/24 magnesium hydroxide 400 mg/5 mL oral suspension (Milk of Magnesia) 30 ml PO DAILY PRN constipation 10/21/24 11/18/24 0949 <Electronically signed by Savannah Delacruz> Date _ Savannah Delacruz Cosigner Signature (if applicable): Date CC: ~ Signed [facility] Work Phone: Discharge summary Author Kenyon Shin [facility] Note Date/Time November 09, 2024 6:4 5am [facility] Medical Records Department [address] [place] [address] Emergency Department Summary 11/09/24 MR#: [id number] Acct: [id number] Name: DARYN GUILLERMO Rep #:[id number] 1 : 1945 78 From: Kenyon Drew PCP: Dr. Delgado Amaro DO Status:REG ER Location: ED HPI History of Present Illness Chief Complaint: Shortness of Breath Informant: patient Narrative Narrative: Worsening dyspnea, orthopnea or leg swelling past few days. Diagnosed recent heart failure on Lasix daily. Wheelchair for transport. She does not wear oxygen. Chronic cough nothing worsening COPD diagnosis secondary to exposure from her spouse. No chest pains. Facility increase her Lasix to 40 mg of Lasix3 days. She was on 20 previously. Prior similar symptoms: Yes [facility] Medical History Post-menopausal History of ulceration Gastric reflux History of stress test History of irregular heartbeat Aortic stenosis Lives in snf Wears glasses Wears partial dentures Marijuana use [...] History iron) tablet furosemide 20 mg tablet 40 mg PO QAM 04/28/24 Unknow n History pantoprazole 40 mg tablet,delayed 40 mg PO QDAY #90 ta bs 04/28/24 Unknown Rx release cyclobenzaprine 10 mg tablet 5 mg PO TID 06/10/24 Unkn own History acetaminophen 325 mg tablet 650 mg PO Q4H PRN Pain 1-5 /10 Or 06/30/24 Unknown History Fever>100.7 albuterol sulfate [...] / Time No Known Allergies Allergy Verified 11/09/24 04:29 Family History Mother Alzheimer dementia Breast cancer Heart disease Brother Cystic fibrosis Surgical History History of colonoscopy S/P laminectomy History of tubal ligation Hx of cholecystectomy H/O section Social History Smoking Status: Never smoker alcohol intake: never ROS ROS ED Constitutional Constitutional ED: Denies chills, fever(s) or sweats ENT ENT ED: Denies sore throat Cardiovascular Cardiovascular: Reports leg edema and orthopnea; Denies chest pain, palpitationsor racing heartbeat Respiratory/Chest Respiratory/Chest: Reports dyspnea and orthopnea; Denies cough or dyspnea on exertion Gastrointestinal Gastrointestinal: Denies abdominal pain, diarrhea, nausea or vomiting Genitourinary Genitourinary ED: Denies dysuria, hematuria or urinary frequency Musculoskeletal Musculoskeletal: Denies back pain, extremity pain or neck pain Integumentary Denies rash or wounds Neurologic Neurologic: Denies headache(s), paresthesias or weakness EXAM Physical Exam Const Vital Signs: 11/09/24 04:23 11/09/24 04:46 11/09/24 05:23 Temperature 97.5 F L Temperature Source Oral Pulse Rate 102 H 100 Respiratory Rate 22 H 22 H Respiratory Effort Normal Blood Pressure 126/81 H 98/72 Blood Pressure Mean 96 80 Pulse Ox 98 95 Oxygen Delivery Method Room Air Room Air 11/09/24 06:00 Temperature Temperature Source Pulse Rate 110 H Respiratory Rate 22 H Respiratory Effort Blood Pressure 122/87 H Blood Pressure Mean 98 Pulse Ox 100 Oxygen Delivery Method Room Air Positive well nourished and well developed Constitutional Narrative: Nasal cannula no distress. General Appearance ED: well developed and NAD HEENT Reports moist mucous membranes normocephalic and atraumatic Eyes General Eye ED: Yes normal appearance of both eyes Neck full ROM Chest Wall Chest: Negative for tenderness Resp normal respiratory effort and normal air movement Effort and Inspection: symmetric chest movement; Negative for respiratory distress Cardio regular rate and no murmurs Peripheral Pulses: pulses 2+ throughout GI normal to inspection, nondistended, normoactive bowel sounds and non-tender Palpation: Negative for guarding or rebound tenderness present Extremity normal to inspection Extremity Narrative: 2+ lower extremity edema. No calf tenderness. Pulses intact distally. General Extremety ED: Yes edema; Negative for tenderness General Extremity: edema Neuro oriented x3 and no sensory deficits noted Sensorium / Orientation: awake and alert Skin no rashes or lesions noted and no wounds MDM MDM MDM Narrative Medical decision making narrative: Interventions / MDM: Differential diagnosis: CHF exacerbation, failed outpatient therapy, renal insufficiency, chronic A-fib Diagnosis considered but do not suspect: N/A My EKG interpretation: A-fib rate of 97, no ST changes. PVC noted. Imaging independently reviewed and interpreted by myself: 1 view chest x-ray asymmetric edema, per radiology possible consolidation. No new cough or concerns for pneumonia. External documents reviewed: Echocardiogram August 2024 EF of 40 to 45%. Creatinine 1.19 in September 2024. Test considered but not ordered:N/A ED course: History of CHF worsening dyspnea orthopnea with leg swelling. No acute distress. She is a nasal cannula however presented 90% on room air. [facility] basic labs for kidney function will check BNP and chest x-ray. EKG rate controlled A- fib. She is on chronic Eliquis. 0640: Chest x-ray right-sided edema, BNP 55,000 creatinine up to 1.58 up from 1.91 in September. She is ordered for IV Lasix to 40 mg. Her weight today is 109.7. Reviewing records 9 days ago had a weight of 94 kg. She has had a 15 kg weightgain 9 days with increasing of her Lasix to 40 mg over 3 days as an outpatient. Patient failing outpatient therapy with worsening renal insufficiency. I discussed with hospitalist Dr. Milton for admission. Re-evaluation: stable Disposition discussed with patient/family/significant other: Patient Case discussed with consulting clinician: Hospitalist This note was generated with [employer] dictation software. It may contain incorrectwords, spelling, and punctuation that were not noted in checking the note beforesigning. Lab Data Attestation: I reviewed the patient's lab results. Labs: Laboratory Results - last 24 hr 11/09/24 04:35 WBC 8.8 RBC 3.93 L Hgb 10.5 L Hct 34.2 L MCV 87.0 MCH 26.7 L MCHC 30.7 L RDW Std Deviation 53.2 H RDW Coeff of Josiah 16.7 H Plt Count 292 MPV 10.5 Immature Gran % (Auto) 0.500 Neut % (Auto) 57.8 Lymph % (Auto) 32.8 [place] % (Auto) 6.5 Eos % (Auto) 1.6 Baso % (Auto) 0.8 Absolute Neuts (auto) 5.1 Absolute Lymphs (auto) 2.88 Nucleated RBC % 0 Sodium 138 Potassium 4.5 Chloride 99 Carbon Dioxide 24.8 Anion Gap 15 BUN 36 H Creatinine 1.58 H Estim Creat Clear Calc 38.00 L Est GFR (MDRD) Non-Af 34 L BUN/Creatinine Ratio 22.7 H Glucose 133 H [place] 9[place]1 [place] [address] H Radiography Diagnostic Testing: Clinical Impression(s) from Imaging Studies Chest X-Ray 11/09/24 05:10 IMPRESSION: Possible asymmetric edema or consolidation in the right central lung. Recommendfollow up imaging. Reading Location: [place] [address] Discharge Plan Dx/Rx/DC Orders Clinical Impression: CHF exacerbation, Acute renal insufficiency, Failure of outpatient treatment, A- fib, Chronic anticoagulation Disposition Disposition: Acute Care Hospital [facility] What to do if you have Problems For any increased pain, shortness of breath, bleeding, nausea or vomiting, chestpain, or any unexpected problems, contact your Primary Care Provider. Call [facility] ([phone]) or report to the closest Emergency Room. Call 911 if necessary. 11/09/24 0645 <Electronically signed by Kenyon Drew> Cosigner Signature (if applicable): CC: Dr. Delgado Amaro DO ~ Signed [facility] Work Phone: Discharge summary Author Shabbir Ricks [facility] Note Date/Time November 18, 2024 9: 45am [facility] Medical Records Department [address] [place] [address] Transfer to [facility] MR#: [id number] Acct: [id number] Name: DARYN GUILLERMO Rep #:[id number] : 1945 78 From: Shabbir loredo MD PCP: Dr. Delgado Amaro DO Status:ADM IN Certification of patient admission REQUIRED AT TIME OF ADMISSION. I CERTIFY THAT POST-HOSPITAL ECF SERVICES ARE REQUIRED TO BE GIVEN ON AN IN-PATIENT BASIS BECAUSE OF THE ABOVE NAMED PATIENT'S NEED FOR INTERMEDIATE CARE ON A CONTINUING BASIS FOR THE CONDITION(S) FOR WHICH HE/SHE WAS RECEIVING IN-PATIENT HOSPITAL SERVICES PRIOR TO HIS/HER TRANSFER TO THE [facility]. 11/18/24 0945<Electronically signed by Shabbir Ricks MD> Diet Diet Order/Speech Therapy: INPATIENT Hospital Diet / Speech Therapy Order(s) 11/17/24 15:42 Diet: Cardiac - Heart Healthy Food consistency:: Soft & Bite Sized Liquid Consistency:: Regular/Thin Dietary Modifications:: Consistent Carbohydrate Type of Dietary Supplement:: Ensure Clear Fluid restriction:: 1750 mL Diet Comments: 240ml mixed berr ensure clear with dinner Speech Therapy Comments: Direct supervision, Meds whole in , Alternate bites/sips Routine Orders/Code Status Routine Lab Work: CBC and BMP Code Status: DNRCC-A DC O2, CPAP, BIPAP needs Home O2 Discharge instructions: No Wound(s) face and bue: Wound Type: scratches from picking Therapies Physical Therapy: Eval and Treat Occupational Therapy: Eval and Treat Problem/Diagnosis (1) Dysphagia: Status: Acute Code(s): R13.10 - Dysphagia, unspecified Plan 1. Acute on chronic systolic CHF exacerbation/chronic A-fib/essential HTN/SANDRA from overdiuresis ? Appreciate nephrology's assistance, renal function is improving back to baseline ? She is on 2 L nasal cannula which appears to be baseline ? Continue with her home medications ? Will monitor and make adjustments as necessary ? Continue with Eliquis 2. DM2 ? Continue with sliding scale insulin ? Accu-Cheks ACHS ? Will monitor make adjustments as necessary 3. Anxiety/depression ? Stable ? Continue with her home medications 4. GERD ? Stable ? Continue PPI 5. Oropharyngeal dysphagia ? Planning for gastroenterology evaluation and EGD today 6. UTI ? She had a UA done on November 11 that demonstrated a UTI and she was treated empirically no cultures were obtained DVT: Eliquis Allergies/Procedures Done in Hospital Allergies No Known Allergies Allergy (Verified 11/09/24 04:29) Procedures: EGD Type of Care/Length of Stay Estimated LOS: Convalescent Care Less Than 30 days Type of Care Needed: Skilled Rehab Potential: Fair Prognosis: Fair Additional Orders/Day of Discharge Day of Discharge: 11/18/24 Dietary and Speech Recommendations Dietitian Recommendations/Changes: Recommend advanced diet as tolerated to cardiac, CCD with 1750ml fluid restriction per WELLNESS PROGRAM COORDINATOR recommendations. Will order 240ml mixed apodaca ensure clear with dinner. Will monitor weight trends. Discharge Plan Admission Admit Date/Time: 11/09/24 07:47 Attending Provider: Shabbir Ricks Primary Care Provider: Delgado Amaro Consulting Providers: Emily Cummings; Jeri Rowland; Edmundo Monge Discharge Orders/Prescriptions Prescriptions: Continued pantoprazole 40 mg tablet,delayed release (DR/EC) 40 mg PO QDAY Qty: 90 1RF ferrous sulfate 325 mg (65 mg iron) tablet 325 mg PO QDAY Patient Comments: ON HOLD FOR CSCOPE cyclobenzaprine 10 mg tablet 5 mg PO TID Eliquis 5 mg tablet 5 mg PO BID Qty: 90 3RF carvedilol 3.125 mg tablet 3.125 mg PO BID Qty: 180 3RF venlafaxine 150 mg capsule,extended release 24hr 150 mg PO QDAY docusate sodium 100 mg capsule 100 mg PO BID buspirone 5 mg tablet 5 mg PO BID dapagliflozin propanediol [Farxiga] 5 mg tablet 5 mg PO DAILY Patient Comments: ON HOLD FOR CSCOPE albuterol sulfate 90 mcg/actuation HFA aerosol inhaler 2 inh inhalation Q6H PRN (Reason: shortness of breath or wheezing) guaifenesin 400 mg tablet 400 mg PO Q4H PRN (Reason: cough) insulin glargine [Lantus Solostar U-100 Insulin] 100 unit/mL (3 mL) insulin pen 8 unit subcut DAILY Patient Comments: Patient had 4 units (half her usual dose) this morning. polyethylene glycol 3350 [Miralax] 17 gram/dose powder 17 g PO QODAY acetaminophen 325 mg Tablet 650 mg PO Q4H PRN (Reason: Pain 1-5/10 Or Fever>100.7) magnesium hydroxide [Milk of Magnesia] 400 mg/5 mL suspension 30 ml PO DAILY PRN (Reason: constipation) benzonatate 100 mg capsule 100 mg PO TID PRN (Reason: cough) cholecalciferol (vitamin D3) 25 mcg (1,000 unit) capsule 25 mcg PO DAILY insulin lispro [Humalog KwikPen Insulin] 100 unit/mL insulin pen See Protocol subcut .TIDCM&HS Protocol: 6. Sliding Scale Insulin Custom Condition: 71-150mg/dl range Dose/Route: 0 Condition: 151-200 Dose/Route: 2 Condition: 201-250 Dose/Route: 4 Condition: 251-300 Dose/Route: 6 Condition: 301-350 Dose/Route: 8 Condition: 351-400 Dose/Route: 10 Protocol Text: Custom Sliding Scale Rx Instructions: TID with meals and at HS nystatin 100,000 unit/gram powder 1 applic topical BID PRN (Reason: skin irritation) potassium chloride 10 mEq capsule, extended release 20 meq PO DAILY melatonin 3 mg Tablet 6 mg PO QHS Qty: 0 0RF Held furosemide 20 mg tablet 40 mg PO QAM Hold Instructions: Resume on 11/20/24. Referrals / Follow Up: April Mullen MD [Non-Staff -Ordering Privileges] - Delgado Amaro DO [Primary Care Provider] - Disposition Disposition (needs filled in before D/C Order can be placed): [facility] 11/18/24 0942 <Electronically signed by Shabbir Ricks MD> Cosigner Signature (if applicable): CC: SHAILESH Rowland; Dr. Edmundo Monge DO; Dr. Emily Cummings MD; Dr.Scott Prem DO ~ [facility] Work Phone: Evaluation note* Diagnosis Chronic [...] Clostridium difficile enteritis documented in this encounter [place] Work Phone: Evaluation note* Diagnosis Anxiety- Primary [...] Vitamin D deficiency documented in this encounter [facility] Work Phone: Evaluation note* Diagnosis Morbid obesity with BMI of 40.0-44.9, adult (CMS/HCC)- Primary Diabetes 1.5, managed as type 2 (CMS/HCC) Anxiety Anxiety state, unspecified Benign essential hypertension Essential hypertension, benign Hyperlipidemia, unspecified hyperlipidemia type Hypokalemia Hypopotassemia Hypomagnesemia Disorders of magnesium metabolism Iron deficiency anemia secondary to inadequate dietary iron intake Vitamin D deficiency Age-related incipient cataract of both eyes documented in this encounter [facility] Work Phone: Evaluation note* Diagnosis Syndrome of inappropriate secretion of antidiuretic hormone ([facility]/HCC)- Primary 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, managed as type 2 ([facility]/HCC) Anxiety Anxiety state, unspecified Venous stasis ulcer with varicose veins of lower extremity ([facility]) Chronic atrial fibrillation ([facility]) Atrial fibrillation Depression, major, single episode, moderate ([facility]) Morbid obesity with BMI of 40.0-44.9, adult ([facility]) 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, without long-term current use of insulin ([facility]) documented in this encounter [facility] Work Phone: [phone] note* Diagnosis Contusion of right foot, initial encounter- Primary Hematoma of right foot documented in this encounter [facility] Work Phone: [phone] note* Diagnosis Hematoma of right foot- Primary Anxiety Anxiety state, unspecified documented in this encounter [facility] Work Phone: [phone] note* Diagnosis Persistent atrial fibrillation (Multi)- Primary Atrial fibrillation documented in this encounter [facility] Work Phone: [phone] note* Diagnosis Persistent atrial fibrillation (Multi) Atrial fibrillation documented in this encounter [facility] Work Phone: [phone] note* Diagnosis Vitamin D deficiency- Primary Chronic atrial fibrillation (Multi) Atrial fibrillation Diabetes 1.5, managed as type 2 (Multi) 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) Other disorders of neurohypophysis documented in this encounter [facility] Work Phone: [phone] note* Diagnosis Vertebral osteomyelitis (Multi)- Primary Unspecified osteomyelitis, other specified site documented in this encounter [place] Work Phone: Evaluation note* Diagnosis S/P laminectomy- Primary Other postprocedural status documented in this encounter [facility] Work Phone: Evaluation note* Diagnosis Hyponatremia- Primary Hyposmolality and/or hyponatremia Hyponatremia Hyposmolality and/or hyponatremia Benign essential hypertension Essential hypertension, benign Iron deficiency anemia secondary to inadequate dietary iron intake Mixed hyperlipidemia documented in this encounter [facility] Work Phone: Evaluation note* Diagnosis Discitis, unspecified, [...] or lung (Multi) documented in this encounter [facility] Work Phone: Evaluation note* Diagnosis Spondylosis with myelopathy, thoracic region- Primary documented in this encounter [facility] Work Phone: Evaluation note* Diagnosis Vertebral osteomyelitis (Multi)- Primary Unspecified osteomyelitis, other specified site Discitis, unspecified, thoracic region documented in this encounter [place] Work Phone: History and physical note Author Jacinto Munoz [facility] Note Date/Time October 28, 2024 11:4 7am [facility] Medical Records Department [address] [place] [id number] History & Physical Exam 10/28/24 1144 MR#: [id number] Acct: [id number] Name: DARYN GUILLERMO BLANE Rep #:[id number] : 1945 78 From: Jacinto Munoz DO PCP: April Mullen MD Status:[facility] Location: [place] [id number] HPI - General General Date of Admission: 10/28/24 Date of Service: 10/28/24 Chief Complaint: Anemia HPI Narrative DARYN GUILLERMO, is a 78 F who presents with Chief Complaint: anemia [facility] ED 12.4.24 with low Hgb 6.9 [...] Resected and retrieved. Clip was placed. Clip stripper color: Pharmaxis. OV 07.31.24 Pt here today to review results of endoscopy. She has no GI complaints. She denies dark or tarry stools. She continues with pantoprazole 40 mg daily and iron. She is having a bm every 2-3 days and feels mild constipationfrom the iron. Last hgb 11.4 (4.15.25). [facility] Medical History Post-menopausal History of ulceration Gastric reflux History of stress test History of irregular heartbeat Aortic stenosis Lives in snf Wears glasses Wears partial dentures Marijuana use [...] April Mullen MD; Jacinto Munoz DO~ Signed [facility] Work Phone: History and physical note Author Emily Cummings [facility] Note Date/Time November 09, 2024 7:5 7am [facility] Medical Records Department [address] [place] [address] H&P Exam - Hospitalist 11/09/24 0747 MR#: [id number] Acct: [id number] Name: DARYN GUILLERMO BLANE Rep #:[id number] : 1945 78 From: Emily Cummings MD PCP: Dr. Delgado Amaro DO Status:ADM IN Location: [place] [id number] HPI - General General Date of Admission: 11/09/24 Date of Service: 11/09/24 Chief Complaint: Lower extremity swelling and shortness of breath HPI Narrative DARYN GUILLERMO, is a 78-year-old female history of heart failure with reduced ejection fraction, diabetes, A-fib on Eliquis, COPD, GERD, depression and anxiety who presented [facility] ED 11/09/2024 due to increasing lower extremity swelling, weight gain, orthopnea and worsening dyspnea. She hasa fairly recent diagnosis of heart failure and was on 20 mg of Lasix, due to these complaints the facility she has had increased her Lasix to 40 mg for the last 3 days however she has not had any improvement. Has a chronic cough from COPD but this has not changed at all from baseline and no other infectious symptoms. In ED temp 97.5, heart rate 102 with a blood pressure 126/81, respiratory rate 22 with pulse ox 98% on room air. CBC with hemoglobin 10.5, overall similar to previous, normal white blood cell count with no left shift. Patient with creatinine of 1.58 with a baseline of around 1.19, BNP 55,945 with chest x-ray showing possible asymmetric edema or consolidation in the right central lung and recommended follow-up imaging. Patient diagnosis heart failureexacerbation, given IV Lasix and hospitalist contacted for admission. Patient seen at bedside. She reports increased swelling in her lower extremities and shortness of breath over the past several days despite the increase in her Lasix, has a chronic cough that has not changed, denies any fevers or chills, ROS otherwise negative. Discussed with patient and [facility] coming Sunday for routine evaluation for options for her aortic stenosis. Discussed that she is vitally stable and it does seem reasonable to keep her here and give IV Lasix and discharge for her to follow-upoutpatient even if her appointment would need to be moved versus transfer. Doesnot seem she needs emergent transfer for acute valve intervention given her stability. Patient agrees and prefers to stay here and follow-up outpatient with [place] on discharge. [facility] Medical History Post-menopausal History of ulceration Gastric reflux History of stress test History of irregular heartbeat Aortic stenosis Lives in snf Wears glasses Wears partial dentures Marijuana use [...] History iron) tablet furosemide 20 mg tablet 40 mg PO QAM 04/28/24 Unknow n History [...] / Time No Known Allergies Allergy Verified 11/09/24 04:29 Family History Mother Alzheimer dementia Breast cancer Heart disease Brother Cystic fibrosis Surgical History History of colonoscopy S/P laminectomy History of tubal ligation Hx of cholecystectomy H/O section Social History Smoking Status: Never smoker alcohol intake: never ROS ROS Narrative General: Denies fever/chills HENT: Denies headache, denies stuffy nose, denies sore throat EYES: Denies changes in vision Resp: Chronic cough, has had some increased shortness of breath Cardiac: Denies chest pain GI: Denies abdominal pain, denies changes in bowel, denies nausea/vomiting : Denies changes in urination Extremity: Increased lower extremity swelling MSK: Denies weakness Neuro: Denies any numbness/tingling Heme: Denies any bleeding or bruising Skin: Denies rashes Psychiatric: No complaints voiced Vital Signs Vital Signs Vital Signs: 11/09/24 04:23 11/09/24 04:46 11/09/24 05:23 Temperature 97.5 F L Temperature Source Oral Pulse Rate 102 H 100 Respiratory Rate 22 H 22 H Respiratory Effort Normal Blood Pressure 126/81 H 98/72 Blood Pressure Mean 96 80 Pulse Ox 98 95 Oxygen Delivery Method Room Air Room Air 11/09/24 06:00 11/09/24 06:45 11/09/24 07:00 Temperature 98.6 F Temperature Source Pulse Rate 110 H 94 105 H Respiratory Rate 22 H 20 H 18 Respiratory Effort Blood Pressure 122/87 H 121/89 H 112/91 H Blood Pressure Mean 98 99 98 Pulse Ox 100 95 94 Oxygen Delivery Method Room Air Room Air Weight Weight: 109.7 kg Body Mass Index (BMI) 39.0 Physical Exam Narrative General: Alert, oriented, no apparent distress HEENT: Atraumatic, normocephalic Eyes: Anicteric, normal conjunctiva, extraocular movements grossly intact Neck: Supple Respiratory: Crackles at bases bilaterally, normal respiratory effort Cardiovascular: Irregularly irregular GI: Soft, nontender, nondistended Extremities: 2+ pitting edema at both lower extremities to hips Musculoskeletal: Moving all extremities Neuro: No overt focal neurological deficits Skin: No rashes appreciated Psych: Cooperative Results Lab / Micro Data 11/09/24 04:35 11/09/24 04:35 Labs: Laboratory Results - last 24 hr 11/09/24 04:35: WBC 8.8, RBC 3.93 L, Hgb 10.5 L, Hct 34.2 L, MCV 87.0, MCH 26.7 L, MCHC 30.7 L, RDW Std Deviation 53.2 H, RDW Coeff of Josiah 16.7 H, Plt Count 292, MPV 10.5, Immature Gran % (Auto) 0.500, Neut % (Auto) 57.8, Lymph % (Auto) 32.8, [place] % (Auto) 6.5, Eos % (Auto) 1.6, Baso % (Auto) 0.8, Absolute Neuts (auto) 5.1, Absolute Lymphs (auto) 2.88, Nucleated RBC % 0, Sodium 138, Potassium 4.5, Chloride 99, Carbon Dioxide 24.8, Anion Gap 15, BUN 36 H, Creatinine 1.58 H, Estim Creat Clear Calc 38.00 L, Est GFR (MDRD) Non-Af 34 L, BUN/Creatinine Ratio 22.7 H, Glucose 133 H, Calcium 9.1, [place] [address] H Imaging Radiology Impression Chest X-Ray 11/09/24 05:10 IMPRESSION: Possible asymmetric edema or consolidation in the right central lung. Recommendfollow up imaging. Reading Location: [facility] Assessment & Plan Assessment/Plan (1) CHF exacerbation: PLAN: Plan #Acute exacerbation of chronic heart failure with reduced ejection fraction -Admit to telemetry -proBNP 55,945 -CXR showed edema versus consolidation, patient with no infectious symptoms whatsoever and clinical picture consistent with CHF, chest x-ray queried asymmetric edema but reviewing x-ray it looks consistent overall with CHF, does have a previous x-ray from 2020 in which the right lung was more opacified than the left, after patient begins diuresing with IV Lasix could consider repeat chest x-ray as repeat imaging was reportedly recommended -Continue IV lasix, will start with 40 IV daily and can further adjust dosing astolerated but would avoid overaggressive diuresis too quickly given her aortic stenosis -Last echo 08/13/2024 with mild to moderate global left ventricular systolic dysfunction with EF estimated to be 40 to 45% and noted diastolic dysfunction, moderate mitral valve insufficiency and moderate tricuspid valve insufficiency with severe aortic valve stenosis, RVSP of 62 -Of note she had a stress test around the same time which was negative for ischemia - No repeat echo ordered given previous echo was less than 3 months ago -Does follow with [facility] on an outpatient basis and was last seen 10/09/2024 -Daily weights, I's and O's -Fluid restriction, heart healthy diet #SANDRA - Suspect cardiorenal - Baseline creatinine around 1.19, today 1.58 - Suspect this will improve with IV diuresis - Repeat in the a.m., avoid nephrotoxic agents as able # Severe aortic valve stenosis - Patient already scheduled to follow-up with [facility] for her heart valve in November, she reports this is on Sunday - Patient vitally stable and not hypoxic - Suspect she will just need IV diuresis for improvement in symptoms and then can be discharged to follow-up with [facility] for outpatient evaluation -There does not seem to be indication for transfer for acute intervention, did discuss options with patient of staying here for IV diuresis and follow-up outpatient versus transfer if she strongly desired that, patient prefers to stayhere and follow-up outpatient and verbalizes her understanding of this plan, do feel this is reasonable #GERD -Continue PPI # Chronic Atrial Fibrillation -Rate control: Coreg -Anticoagulation: Eliquis -Does have frequent ectopy, continue Coreg and will check mag #Type 2 diabetes mellitus -Glucose checks and sliding scale insulin #Hx COPD/asthma - As needed albuterol -Incentive spirometer #Depression/anxiety -Continue home medications #DVT ppx: Chronically on Eliquis Emily Cummings MD Charges/Coding Visit Charges Inpatient E&M: 24078 Init Hosp L2 11/09/24 9032 <Electronically signed by Emily Cummings MD> Cosigner Signature (if applicable): CC: Dr. Emily Cummings MD; Dr. Delgado Amaro DO~ Signed [facility] Work Phone: History of Present illness [...] in their home. * Based on this [id number] evaluation, the patient has functional limitations that [...] home for palliative care, PT, OT and PRODUCT SAFETY PROFESSIONAL. She is realizing that she cannot do anything about many of the things. Seemed to get worse after Cody from Palliative care put her on Effexor and now it is costly do will go back to Paxil. rebar worker from [facility] comes monthly. . She is not getting [...] expected for medication profile * CSA 10/30/19 -[facility] Work Phone: History of Present illness Narrative* Has changed [facility] companies and needs new certification. She [...] for HHC. 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 She is realizing that she cannot do [...] - with DM treating this with Irene. * Lymphedema of leg - exercises have [...] appropriate to continue to prescribe this medication. [facility] Work Phone: History of Present illness [...] palliative care. 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 She is realizing that she cannot do [...] Hyperlipidemia - with DM treating this with [place]. Good in June * Lymphedema of leg [...] appropriate to continue to prescribe this medication. -[facility] Work Phone: History of Present illness Narrative* No longer has [facility]. She is doing better and able [...] palliative care. 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 . She is realizing [...] this one and talked to herabout it -[facility] Work Phone: History of Present illness [...] patient's decisions. * Additional Information: Shad and Alexa. * No longer has HHC. She is [...] palliative care. 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 . She is realizing [...] and uses bedpan. Plans to go to [facility] and [facility]. Has a walker but [...] this one and talked to herabout it -[facility] Work Phone: Hospital Discharge instructions* Attachments The following attachments cannot be sent through Care Everywhere. * Minor Contusion ED (Mexican) [facility] Work Phone: reason for referral (narrative)* Consultation (Routine) - Authorized Specialty Diagnoses / Procedures Referred By Contac t Referred To Contact 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, managed as type 2 (CMS/HCC) Procedures Follow Up In Primary Care - Established Huan Gilman MD [address] [facility], [facility] [address] [place] [id number] Referral ID Status Reason Start Date Expiration Date V isits Requested Visits Authorized [id number] Authorized 03/13/2023 03/12/2024 1 1 [facility] Work Phone: reason for referral (narrative)* Consultation (Routine) - Authorized Specialty Diagnoses / Procedures Referred By Contac t Referred To Contact 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, managed as type 2 (CMS/HCC) Procedures Follow Up In Primary Care - Established Huan Gilman MD [address] [facility], [facility] [address] [place] [address] Referral ID Status Reason Start Date Expiration Date V isits Requested Visits Authorized [id number] Authorized 04/20/2023 04/19/2024 1 1 [facility] Work Phone: reason for referral (narrative)* Consultation (Routine) - Authorized Specialty Diagnoses / Procedures Referred By Contac t Referred To Contact Pharmacy Diagnoses Persistent atrial fibrillation (Multi) Marleen Sigala, SCRAP DROP CRANE OPERATOR-HARNESS INSPECTOR, DNP [address] [facility] [place] [address] [facility] [address] [place] [address] Referral ID Status Reason Start Date Expiration Date Visits Requested Visits Authorized [id number] Authorized Specialty Services Required 07/20/2023 07/19/2024 1 1 [facility] Work Phone: Reason for referral (narrative)* Consultation (Routine) - Authorized Specialty Diagnoses / Procedures Referred By Contac t Referred To Contact Primary Care Procedures Follow Up In Primary Care - Established Huan Gilman MD [address] [facility], [facility] [address] [place] [address] Referral ID Status Reason Start Date Expiration Date V isits Requested Visits Authorized [id number] Authorized 08/20/2023 08/19/2024 1 1 [place] Work Phone: Reason for referral (narrative)No reason for referral information availableWSum[facility] Work Phone: Reason for visit Narrative* Auth/Cert Specialty Diagnoses / Procedures Referred By Contac t Referred To Contact Diagnoses Metastatic Lesions/Thoracic spine Procedures No coded [place] [id number] [place], [place] [id number] [facility] [address] [place] [address] Referral ID Status Reason Start Date Expiration Date Visits Re quested Visits Authorized [id number] 1 1 [place] Work Phone: Summary Purpose Family History No [...] Yes March 28 11:57am Power of Manager Marketing Sales Yes March 28, 2024 11:57am Name of Medical Power of Manager Marketing Sales eva barrientos March 28, 2024 11:57am Advance Directive Response Recorded Date/ Time Living Will Yes March 28 12:57pm Do you have a Healthcare Pow er of Manager Marketing Sales? Yes March 28, 2024 12:57pm Name of Medical Power of Manager Marketing Sales eva barrientos March 28, 2024 12:57pm Living Will No June 30, 2024 11:18am Do you have a Healthcare Pow er of Manager Marketing Sales? Yes June 30, 2024 11:18am Name of Medical Power of Manager Marketing Sales SON June 30, 2024 11:18am Advance Directive Response Recorded Date/ Time Living Will No June 30, 2024 11:18am Do you have a Healthcare Power of Manager Marketing Sales? Yes June 30, 2024 11:18am Name of Medical Power of Manager Marketing Sales SON June 30, 2024 11:18am Advance Directive Response Recorded Date/ Time Living Will No June 30, 2024 11:18am Do you have a Healthcare Power of Manager Marketing Sales? Yes June 30, 2024 11:18am Name of Medical Power of Manager Marketing Sales SON June 30, 2024 11:18am Do you have a Healthcare Power of Manager Marketing Sales? Yes October 21, 2024 8:35am Advance Directive Response Recorded Date/ Time Do you have a Healthcare Power of Manager Marketing Sales? Yes October 21, 2024 8:35am Do you have a Healthcare Power of Manager Marketing Sales? No November 09, 2024 4:28am Advance Directive Response Recorded Date/ Time Do you have a Healthcare Power of Manager Marketing Sales? Yes October 21, 2024 8:35am Do you have a Healthcare Power of Manager Marketing Sales? Yes November 09, 2024 9:08am Name of Medical Power of Manager Marketing Sales alexa guillermo November 09, 2024 9:08am Chief Complaint medck* A telephone visit (audio [...] consent was requested and obtained from DARYN GUILLERMO on this date, 06/09/2021 01:00 PM , for a telehealth visit. * medck * A telephone visit (audio only) between the patient (at the originating site) and the provider (at the distant site) was utilized to provide this telehealth service. * Verbal consent was requested and obtained from DARYN GUILLERMO on this date, 06/09/2021 01:00 PM , for a telehealth visit. * medck medckLongstanding persistent atrial fibrillationmedck and AWV Reason for Referral Specialty Diagnoses / Procedures Referred By Akiko delgado Referred To Contact Radiology Diagnoses Lung mass Malignant neoplasm of unspecified part of unspecified bronchus or lung (Multi) Procedures [place] [address] [facility] [place] [address] Referral ID Status Reason Start Date Expiration Date Visits Requested Visits Authorized [id number] Pending Review Perform Procedure 11/20/2023 11/19/2024 3 3 Specialty Diagnoses / Procedures Referred By Akiko delgado Referred To Contact Pulmonary Disease / Pulmonology [place] [address] [place] [address] Referral ID Status Reason Start Date Expiration Date Visits Requested Visits Authorized [id number] Authorized Specialty Services Required 11/20/2023 11/19/2024 1 1 Specialty Diagnoses / Procedures Referred By Contac t Referred To Contact Radiology Diagnoses Vertebral osteomyelitis (Multi) Discitis, unspecified, thoracic region Procedures NM PET CT bone skull base [place] [address] [place] [address] Referral ID Status Reason Start Date Expiration Date Visits Requested Visits Authorized [id number] Pending Review Perform Procedure 12/27/2023 12/26/2024 3 3 Chief Complaint and Reason for Visit Chief Complaint Admit Date INTERMEDIATE LAB WORK February 26 4:00am INTERMEDIATE LAB WORK March 28 4:00am abnormal labs March 28, 2024 11:52am INTERMEDIATE LAB WORK April 03 5:00am INTERMEDIATE LAB WORK April 07 5:00am INTERMEDIATE LAB WORK April 14, 2024 5:00am Anemia April 28, 2024 1 0:28am INTERMEDIATE LAB WORK May 12, 2024 7:20am INTERMEDIATE LAB WORK May 27 4:00am LABOWRK June 02, 2024 5:00am INTERMEDIATE LAB WORK June 03 4:00am LABWORK June 04, 2024 5:00am Reason for Visit Admit Date Anemia April 28, 2024 1 0:28am Chief Complaint Admit Date INTERMEDIATE LAB WORK March 28 4:00am abnormal labs March 28, 2024 11:52am INTERMEDIATE LAB WORK April 03 5:00am INTERMEDIATE LAB WORK April 07 5:00am INTERMEDIATE LAB WORK April 14, 2024 5:00am Anemia April 28, 2024 1 0:28am INTERMEDIATE LAB WORK May 12, 2024 7:20am INTERMEDIATE LAB WORK May 27 4:00am LABOWRK June 02, 2024 5:00am INTERMEDIATE LAB WORK June 03 4:00am LABWORK June 04, 2024 5:00am Reason for Visit Admit Date Anemia April 28, 2024 1 0:28am Anemia July 01, 2024 11: 19am Chief Complaint Admit Date INTERMEDIATE LAB WORK March 28 4:00am abnormal labs March 28, 2024 11:52am INTERMEDIATE LAB WORK April 03 5:00am INTERMEDIATE LAB WORK April 07 5:00am INTERMEDIATE LAB WORK April 14, 2024 5:00am Anemia April 28, 2024 1 0:28am INTERMEDIATE LAB WORK May 12, 2024 7:20am INTERMEDIATE LAB WORK May 27 4:00am LABOWRK June 02, 2024 5:00am INTERMEDIATE LAB WORK June 03 4:00am LABWORK June 04, 2024 5:00am INTERMEDIATE LAB WORK June 24, 2024 5 :00am Chief Complaint Admit Date Anemia April 28, 2024 1 0:28am INTERMEDIATE LAB WORK May 12, 2024 7:20am INTERMEDIATE LAB WORK May 27 4:00am LABOWRK June 02, 2024 5:00am INTERMEDIATE LAB WORK June 03 4:00am LABWORK June 04, 2024 5:00am INTERMEDIATE LAB WORK June 24, 2024 5 :00am INTERMEDIATE LAB WORK July 22, 2024 5 :00am [...] 2024 8:5 2am Chief Complaint Admit Date INTERMEDIATE LAB WORK June 24, 2024 5 :00am INTERMEDIATE LAB WORK July 22, 2024 5 :00am AFIB, CHF, HTN (APRIL GUDIA) July 10:52am Test Result July 31, 2024 8:5 2am CHF August 13, 2024 8:06am Congestive heart failure August 13, 2024 1 0:41am INTERMEDIATE LAB WORK August 19, 2024 5:0 0am INTERMEDIATE LAB WORK September 16, 2024 5: 00am [...] 2024 2:38p m Chief Complaint Admit Date INTERMEDIATE LAB WORK July 22, 2024 5 :00am AFIB, CHF, HTN (APRIL KALISTEVEMaria Luisa) July 10:52am Test Result July 31, 2024 8:5 2am CHF August 13, 2024 8:06am Congestive heart failure August 13, 2024 1 0:41am INTERMEDIATE LAB WORK August 19, 2024 5:0 0am INTERMEDIATE LAB WORK September 16, 2024 5: 00am [...] Gastric ulcer October 28, 2024 10:2 7am Chief Complaint Admit Date INTERMEDIATE LAB WORK July 22, 2024 5 :00am AFIB, CHF, HTN (APRIL PAULINO) July 10:52am Test Result July 31, 2024 8:5 2am CHF August 13, 2024 8:06am Congestive heart failure August 13, 2024 1 0:41am INTERMEDIATE LAB WORK August 19, 2024 5:0 0am INTERMEDIATE LAB WORK September 16, 2024 5: 00am 3 M FU October 09, 2024 2:38p m HEART FAILURE EXACERBATION November 09 7:47am Reason for Visit Admit Date A-fib July 23, 2024 10: 52am Chronic [...] Gastric ulcer October 28, 2024 10:2 7am Acute renal insufficiency November 09 7:47am Chronic anticoagulation November 09, 2024 7:47am Failure of outpatient treatment November 092024 7:47am A-fib November 09, 2024 7:4 7am CHF exacerbation November 09, 2024 7:4 7am Chief Complaint Admit Date INTERMEDIATE LAB WORK July 22, 2024 5 :00am AFIB, CHF, HTN (APRIL PAULINO) July 10:52am Test Result July 31, 2024 8:5 2am CHF August 13, 2024 8:06am Congestive heart failure August 13, 2024 1 0:41am INTERMEDIATE LAB WORK August 19, 2024 5:0 0am INTERMEDIATE LAB WORK September 16, 2024 5: 00am 3 M FU October 09, 2024 2:38p m HEART FAILURE EXACERBATION November 09, 2 025 7:47am HEART FAILURE EXACERBATION November 10, 2 025 7:15pm HEART FAILURE EXACERBATION November 11, 2 025 4:10pm HEART FAILURE EXACERBATION November 12, 2 025 5:44pm HEART FAILURE EXACERBATION November 13, 2 025 6:10pm HEART FAILURE EXACERBATION November 14, 2 025 7:13pm HEART FAILURE EXACERBATION November 15, 2 025 1:24pm HEART FAILURE EXACERBATION November 16, 2024 4:44pm HEART FAILURE EXACERBATION November 17, 2024 12:43pm HEART FAILURE EXACERBATION November 17, 2024 1:13pm HEART FAILURE EXACERBATION November 18, 2024 9:32am Reason for Visit Admit Date A-fib July 23, 2024 10: 52am Chronic [...] Gastric ulcer October 28, 2024 10:2 7am Acidosis, metabolic November 09, 2024 7:4 7am Acute renal insufficiency November 09 7:47am Chronic anticoagulation November 09, 2024 7:47am Dysphagia November 09, 2024 7:4 7am Failure of outpatient treatment November 092024 7:47am Hyperkalemia November 09, 2024 7:4 7am A-fib November 09, 2024 7:4 7am CHF exacerbation November 09, 2024 7:4 7am Chronic HFrEF (heart failure with reduce d ejection fraction) November 09, 2024 7:47am Additional Source Comments INFORMATION SOURCE (unrecogn ized section and content) DATE CREATED AUTHOR 11/12/2018 [facility] DATE CREATED AUTHOR AUTHOR'S ORGANIZ ATION 10/24/2020 [facility] DATE CREATED AUTHOR AUTHOR'S ORGANIZ ATION 06/05/2022 [employer] DATE CREATED AUTHOR AUTHOR'S ORGANIZ ATION 09/30/2022 [facility] DATE CREATED AUTHOR AUTHOR'S ORGANIZ ATION 11/15/2023 [facility] DATE CREATED AUTHOR AUTHOR'S ORGANIZ ATION 11/17/2023 [facility] DATE CREATED AUTHOR AUTHOR'S ORGANIZ ATION 03/02/2024 [facility] DATE CREATED AUTHOR AUTHOR'S ORGANIZ ATION 07/16/2024 [facility] DATE CREATED AUTHOR AUTHOR'S ORGANIZ ATION 09/20/2024 [facility] DATE CREATED AUTHOR AUTHOR'S ORGANIZ ATION 11/09/2024 [facility] DATE CREATED AUTHOR AUTHOR'S ORGANIZ ATION 11/19/2024 [facility] Reason for Visit (unrecogniz ed section and content) Reason Comments Follow-up Was in hospital for uti, developed C. 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, without long-term current use of insulin (CMS/HCC) Procedures Follow Up In Primary Care Huan Gilman MD [address] [facility], [place] [id number] Referral ID Status Reason Start Date Expiration Date V isits Requested Visits Authorized [id number] Authorized 08/31/2022 02/27/2023 1 1 Reason Comments Med Management Increased depression Reason Comments Follow-up Specialty Diagnoses / Procedures Referred By Contac t Referred To Contact 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, managed as type 2 (CMS/HCC) Procedures Follow Up In Primary Care - Established Huan Gilman MD [address] [facility], [place] [id number] Referral ID Status Reason Start Date Expiration Date V isits Requested Visits Authorized [id number] Authorized 03/13/2023 03/12/2024 1 1 Reason Comments Foot Injury Dropped a soup can o nto her right foot. +swelling. Able to move toes. Reason Comments Follow-up ER for right foot co ntusion Reason Comments Atrial Fibrillation Specialty Diagnoses / Procedures Referred By Akiko delgado Referred To Contact Pharmacy Diagnoses Persistent atrial fibrillation (Multi) Marleen Sigala, SCRAP DROP CRANE OPERATOR-HARNESS INSPECTOR, DNP [address] [facility] [place] [address] [facility] [address] [place] [address] Referral ID Status Reason Start Date Expiration Date Visits Requested Visits Authorized [id number] Authorized Specialty Services Required 07/20/2023 07/19/2024 1 1 Reason Comments Med Management Specialty Diagnoses / Procedures Referred By Akiko delgado Referred To Contact Primary Care Diagnoses Chronic atrial fibrillation (Multi) Procedures Follow Up In Primary Care - Established Huan Gilman MD [address] [facility], [address] [place] [address] Referral ID Status Reason Start Date Expiration Date V isits Requested Visits Authorized [id number] Authorized 05/21/2023 05/20/2024 1 1 Reason Comments [...] delgado Referred To Contact Diagnoses Hyponatremia Procedures IP Renetta Romero MD [address] [place] [address] [address] Referral ID Status Reason Start Date Expiration Date Visits Re quested Visits Authorized [id number] 1 1 Reason Comments Post-op Pt has complaints of back pain where her roberta are that's described as a intermittent aching. Reason Comments Appointment Appointment Care Teams (unrecognized sec tion and content) Tankage Grinder Relationship Specialty Start Date End Date Huan Gilman MD [address] [facility], [address] [place] [address] PCP - General 12/10/18 Huan Gilman MD [address] [facility], [address] [place] [address] PCP - [employer] [employer]age PCP 10/07/21 Diana Marcano MA GreeterFinish Cleaner 10/11/22 Tankage Grinder Relationship Specialty Start Date End Date Huan Gilman MD [address] [facility], [address] [place] [address] PCP - General 12/10/18 Huan Gilman MD [address] [facility], [address] [place] [address] PCP - [employer] [employer] Ad[employer]age PCP 10/07/21 Diana Marcano MA GreeterFinish Cleaner 10/11/22 Tankage Grinder Relationship Specialty Start Date End Date Huan Gilman MD [address] [facility], [address] [place] [address] PCP - General 12/10/18 Huan Gilman MD [address] [facility], [address] [place] [address] PCP - [place] [employer]age PCP 10/07/21 Tankage Grinder Relationship Specialty Start Date End Date Huan Gilman MD [address] [facility], [address] [place] [address] PCP - General 12/10/18 Huan Gilman MD [address] [facility], [address] [place] [address] PCP - [employer] Medicare Advantage PCP 10/07/21 Tankage Grinder Relationship Specialty Start Date End Date Huan Gilman MD [address] [facility], [address] [place] [address] PCP - General 12/10/18 Huan Gilman MD [address] [facility], [address] [place] [address] PCP - [employer] Medicare Advantage PCP 10/07/21 Tankage Grinder Relationship Specialty Start Date End Date Huan Gilman MD [address] [facility], [address] [place] [address] PCP - General 12/10/18 Huan Gilman MD [address] [facility], [address] [place] [address] PCP - [employer] Medicare Advantage PCP 10/07/21 Huan Gilman MD [address] [facility], [address] [place] [address] PCP - [employer] Medicare Advantage PCP 05/10/23 Tankage Grinder Relationship Specialty Start Date End Date Huan Gilman MD [address] [facility], [address] [place] [address] PCP - General 12/10/18 Huan Gilman MD [address] [facility], [address] [place] [address] PCP - [employer] Medicare Advantage PCP 10/07/21 Huan Gilman MD [address] [facility], [address] [place] [address] PCP - [facility] [facility] Medicare Advantage PCP 05/10/23 Tankage Grinder Relationship Specialty Start Date End Date Huan Gilman MD [address] [facility], [address] [place] [address] PCP - General 12/10/18 Huan Gilman MD [address] [facility], [address] [place] [address] PCP - [employer] [facility] Medicare Advantage PCP 05/10/23 Tankage Grinder Relationship Specialty Start Date End Date Huan Gilman MD [address] [facility], [address] [place] [address] PCP - General 12/10/18 Huan Gilman MD [address] [facility], [address] [place] [address] PCP - [employer] Medicare Advantage PCP 05/10/23 Tankage Grinder Relationship Specialty Start Date End Date Huan Gilman MD [address] [facility], [address] [place] [address] PCP - General 12/10/18 Huan Gilman MD [address] [facility], [address] [place] [address] PCP - [employer] [facility] Medicare Advantage PCP 05/10/23 Tankage Grinder Relationship Specialty Start Date End Date Huan Gilman MD [address] [facility] [address] [place] [address] PCP - General 12/10/18 Huan Gilman MD [address] [facility], [address] [place] [address] PCP - [employer] [facility] Medicare Advantage PCP 05/10/23 Tankage Grinder Relationship Specialty Start Date End Date Huan Gilman MD [address] [facility] [address] [place] [address] PCP - General 12/10/18 Huan Gilman MD [address] [facility], [address] [place] [address] PCP - [employer] [facility] Medicare Advantage PCP 05/10/23 Tankage Grinder Relationship Specialty Start Date End Date Huan Gilman MD [address] [facility], [address] [place] [address] PCP - General 12/10/18 Huan Gilman MD [address] [facility], [address] [place] [address] PCP - [facility] [facility] Medicare Advantage PCP 05/10/23 Tankage Grinder Relationship Specialty Start Date End Date Huan Gilman MD [address] [facility] [address] [place] [address] PCP - General 12/10/18 Huan Gilman MD [address] [facility], [address] [place] [address] PCP - [employer] Medicare Advantage PCP [...] 23, 2024 End: July 23, 2024 Dr. Arpil Mullen MD Referring Provider Active Start: July [...] 2024 End: October 09, 2024 Yennifer Pemberton FACTORY WORKER, FACTORY WORKER-C Attending Provider Active Start: October 09, 2024 End: October 09, 2024 Team Status: Inactive Member Role/Relationship Status Dates Dr. Arpil Mullen MD Primary Care Provider Active Start: [...] End: October 09, 2024 Yennifer Pemberton NP, FACTORY WORKER-C Attending Provider Active Start: October 09, 2024 [...] Provider Active St art: October 28, 2024 Team Status: Active Member Role/Relationship Status Dates Dr. Delgado Amaro DO Primary Care Provider Active Team Status: Inactive [...] 2024 End: October 09, 2024 Yennifer Pemberton FACTORY WORKER, FACTORY WORKER-C Attending Provider Active Start: October 09, 2024 [...] Provider Active St art: October 28, 2024 Team Status: Active Member Role/Relationship Status Dates Dr. Kenyon Shin DO Emergency Provider Active Start : November 09, 2024 Dr. Delgado Amaro DO Primary Care Provider Active Start: November 09, 2024 Dr. Emily Cummings MD Admit Provider Active Star t: November 09, 2024 Dr. Emily Cummings MD Attending Provider Active Start: November 09, 2024 Dr. Emily Cummings MD Other Provider Active Star t: November 09, 2024 Team Status: Inactive Member Role/Relationship Status Dates Dr. Kenyon Shin DO Emergency Provider Active Start : November 09, 2024 End: November 18, 2024 Dr. Delgado Amaro DO Primary Care Provider Active Start: November 09, 2024 End: November 18, 2024 Dr. Emily Cummings MD Admit Provider Active Star t: November 09, 2024 End: November 18, 2024 Dr. Emily Cummings MD Other Provider Active Star t: November 09, 2024 End: November 18, 2024 SHAILESH Christine Other Provider Active S tart: November 09, 2024 End: November 18, 2024 Dr. Shabbir Ricks MD Attending Provider Active Start: November 09, 2024 End: November 18, 2024 Dr. Edmundo Monge DO Other Provider Active S tart: November 09, 2024 End: November 18, 2024 Team Status: Active Member Role/Relationship Status Dates Dr. Kenyon Shin DO Emergency Provider Active Start : November 10, 2024 Dr. Delgado Amaro , DO Primary Care Provider Active Start: November 10, 2024 Dr. Emily Cummings MD Admit Provider Active Star t: November 10, 2024 Dr. Emily Cummings MD Other Provider Active Star t: November 10, 2024 Dr. Edmundo Monge DO Attending Provider Active Start: November 10, 2024 Dr. Edmundo Monge DO Other Provider Active S tart: November 10, 2024 Team Status: Active Member Role/Relationship Status Dates Dr. Kenyon Shin DO Emergency Provider Active Start : November 11, 2024 Dr. Delgado Amaro , Primary Care Provider Active Start: November 11, 2024 Dr. Emily Cummings MD Admit Provider Active Star t: November 11, 2024 Dr. Emily Cummings MD Other Provider Active Star t: November 11, 2024 Dr. Edmundo Monge DO Attending Provider Active Start: November 11, 2024 Dr. Edmundo Monge DO Other Provider Active S tart: November 11, 2024 Jeri Rowland FACTORY WORKER-C Other Provider Active S tart: November 11, 2024 Team Status: Active Member Role/Relationship Status Dates Dr. Kenyon Shin DO Emergency Provider Active Start : November 12, 2024 Dr. Delgado Amaro DO Primary Care Provider Active Start: November 12, 2024 Dr. Emily Cummings MD Admit Provider Active Star t: November 12, 2024 Dr. Emily Cummings MD Other Provider Active Star t: November 12, 2024 Dr. Edmundo Monge DO Attending Provider Active Start: November 12, 2024 Dr. Edmundo Monge DO Other Provider Active S tart: November 12, 2024 Jeri Rowland , FACTORY WORKER-C Other Provider Active S tart: November 12, 2024 Team Status: Active Member Role/Relationship Status Dates Dr. Kenyon Shin DO Emergency Provider Active Start : November 13, 2024 Dr. Delgado Amaro , Primary Care Provider Active Start: November 13, 2024 Dr. Emily Cummings MD Admit Provider Active Star t: November 13, 2024 Dr. Emily Cummings MD Other Provider Active Star t: November 13, 2024 Dr. Edmundo Monge , DO Attending Provider Active Start: November 13, 2024 Dr. Edmundo Monge , DO Other Provider Active S tart: November 13, 2024 Jeri Rowland , FACTORY WORKER-C Other Provider Active S tart: November 13, 2024 Team Status: Active Member Role/Relationship Status Dates Dr. Kenyon Shin , DO Emergency Provider Active Start : November 14, 2024 Dr. Delgado Amaro , DO Primary Care Provider Active Start: November 14, 2024 Dr. Emily Cummings MD Admit Provider Active Star t: November 14, 2024 Dr. Emily Cummings MD Other Provider Active Star t: November 14, 2024 Dr. Edmundo Monge , DO Attending Provider Active Start: November 14, 2024 Dr. Edmundo Monge , DO Other Provider Active S tart: November 14, 2024 Jeri Rowland , FACTORY WORKER-C Other Provider Active S tart: November 14, 2024 Team Status: Active Member Role/Relationship Status Dates Dr. Kenyon Shin , Emergency Provider Active Start : November 15, 2024 Dr. Delgado Amaro , DO Primary Care Provider Active Start: November 15, 2024 Dr. Emily Cummings MD Admit Provider Active Star t: November 15, 2024 Dr. Emily Cummings MD Other Provider Active Star t: November 15, 2024 Dr. Edmundo Monge , DO Attending Provider Active Start: November 15, 2024 Dr. Edmundo Monge , DO Other Provider Active S tart: November 15, 2024 Jeri Rowland , FACTORY WORKER-C Other Provider Active S tart: November 15, 2024 Team Status: Active Member Role/Relationship Status Dates Dr. Kenyon Shin DO Emergency Provider Active Start : November 16, 2024 Dr. Delgado Amaro , DO Primary Care Provider Active Start: November 16, 2024 Dr. Emily Cummings MD Admit Provider Active Star t: November 16, 2024 Dr. Emily Cummings MD Other Provider Active Star t: November 16, 2024 Dr. Edmundo Monge DO Attending Provider Active Start: November 16, 2024 Dr. Edmundo Monge , DO Other Provider Active S tart: November 16, 2024 Jeri Rowland FACTORY WORKER-C Other Provider Active S tart: November 16, 2024 Team Status: Active Member Role/Relationship Status Dates Dr. Kenyon Shin DO Emergency Provider Active Start : November 17, 2024 Dr. Delgado Amaro , Primary Care Provider Active Start: November 17, 2024 Dr. Emily Cummings MD Admit Provider Active Star t: November 17, 2024 Dr. Emily Cummings MD Other Provider Active Star t: November 17, 2024 Jeri Rowland , FACTORY WORKER-C Other Provider Active S tart: November 17, 2024 Dr. Shabbir Ricks MD Attending Provider Active Start: November 17, 2024 Dr. Shabbir Ricks MD Other Provider Active Start: November 17, 2024 Dr. Edmundo Monge DO Other Provider Active S tart: November 17, 2024 Team Status: Active Member Role/Relationship Status Dates Dr. Kenyon Shin DO Emergency Provider Active Start : November 17, 2024 Dr. Delgado Amaro DO Primary Care Provider Active Start: November 17, 2024 Dr. Emily Cummings MD Admit Provider Active Star t: November 17, 2024 Dr. Emily Cummings MD Other Provider Active Star t: November 17, 2024 Jeri Rowland , FACTORY WORKER-C Other Provider Active S tart: November 17, 2024 Dr. Shabbir Ricks MD Other Provider Active Start: November 17, 2024 Dr. Edmundo Monge DO Other Provider Active S tart: November 17, 2024 Dr. Jacinto Munoz DO Attending Provider Active Start: November 17, 2024 Team Status: Active Member Role/Relationship Status Dates Dr. Kenyon Shin DO Emergency Provider Active Start : November 18, 2024 Dr. Delgado Amaro DO Primary Care Provider Active Start: November 18, 2024 Dr. Emily Cummings MD Admit Provider Active Star t: November 18, 2024 Dr. Emily Cummings MD Other Provider Active Star t: November 18, 2024 Jeri Rowland , FACTORY WORKER-C Other Provider Active S tart: November 18, 2024 Dr. Shabbir Ricks MD Attending Provider Active Start: November 18, 2024 Dr. Shabbir Ricks MD Other Provider Active Start: November 18, 2024 Dr. Edmundo Monge DO Other Provider Active S tart: November 18, 2024 Scheduled Active and Recently Administ ered [...] RN)2041 (Given - Provider: Raquel Ibrahim, UZMA) 0839 (Given - Provider: Ethel Iverson, UZMA)2058 (Given - Provider: Raquel Ibrahim RN) cholecalciferol (Vitamin D-3) tablet 2,000 Units 2,000 Units, oral, Daily, First dose on Sun10/10/23 at 0900 0833 (Given - Provider: Ethel Iverson RN) 0838 (Given - Provider: Ethel Iverson RN) 0819 (Given - Provider: Fátima Guadarrama RN) diphenhydrAMINE (BENADryl) capsule 25 mg 25 mg, oral, Nightly, First dose on Sun10/14/23 at 2100 205 (Given - Provider: Raquel Ibrahim, UZMA) 2099 (Due) ferrous gluconate (Fergon) 324 (38 Fe) mg tablet 38 mg of iron 38 mg of iron, oral, Daily with breakfast, First dose on Sun10/10/23 at 0800, Do not crush, chew, or split. 0832 (Given - Provider: Ethel Iverson RN) 0839 (Given - Provider: Ethel Iverson, UZMA) 0824 (Given - Provider: Fátima Guadarrama RN) [...] Iverson RN) 0841 (Given - Provider: Ethel Iverson, UZMA)1215 (Given - Provider: Ethel Iverson RN)1721 (Given [...] (Due) 0636 (Due - Provider: Kenya Vera, DENTAL ASSISTANT TEACHER)1999 (Due) 06 ([employer] - Provider: Ladi Kaba, CRAYON PAINTER)1999 (Due) phenazopyridine (Pyridium) tablet 200 mg 200 [...] Patient/family refused) 09 (Not Given - Provider: Fátima Guadarrama, UZMA - Reason: Patient/family refused) rivaroxaban (Xarelto) tablet [...] 0819 (Given - Provider: Fátima Guadarrama, UZMA) rosuvastatin (Crestor) tablet 10 mg 10 mg, [...] Reason: Patient/family refused)2041 (Given - Provider: Raquel bIrahim RN) 0839 (Given - Provider: Ethel Iverson, UZMA)2099 (Not Given - Provider: Raquel Ibrahim RN - Reason: Other - Comment: pt. having loose stool) 0819 (Given - Provider: Fátima Guadarrama, UZMA)2099 (Due) venlafaxine XR (Effexor-XR) 24 hr capsule 75 mg 75 mg, oral, Daily, First dose on Sun10/10/23 at 0900, Capsule may be swallowed whole, or may be opened and its contents sprinkled on applesauce if consumed immediately without chewing. Do not crush or chew. 0833 (Given - Provider: Ethel Iverson RN) 0839 (Given - Provider: Ethel Iverson RN) 0819 (Given - Provider: Fátimamariam Guadarrama RN) PRN Medication Order 10/13/2023 10/14/2023 10/15/2023 acetaminophen [...] Fine RN)2100 (Not Given - Provider: Belgica Yrok RN - Reason: Patient/family refused) 0931 (Given [...] Maria RN) 0900 (Given - Provider: Sonya Fine, RN)1700 (Given - Provider: Sonya Fine RN)2122 [...] Sarah Zepeda RN)2117 (Given - Provider: Armida Maria, UZMA) 0700 (Not Given - Provider: Sonya Fine [...] needed. 0933 (Given - Provider: Sarah Zepeda RN)210 (Given - Provider: Armida Maria RN) 0900 (Given - Provider: Sonya Fine RN)2156 (Given - Provider: Belgica York RN) 0745 (Given - Provider: Sonya Fine RN)2099 (Due) polyethylene glycol (Glycolax, Miralax) packet 34 [...] First dose on Sun11/09/23 at 1300, Mini-Bag Plus/ADD-[place] bag, Dosing of this medication varies based [...] or chew. 0931 (Given - Provider: Sonya Fine, RN) venlafaxine XR (Effexor-XR) 24 hr capsule 75 mg (CANCELED) 75 mg, oral, Daily, First dose on Sun11/09/23 at 0900, Capsule may be swallowed whole, or may be opened and its contents sprinkled on applesauce if consumed immediately without chewing. Do not crush or chew. 0932 (Given - Provider: Saarh Zepeda RN) 0901 (Given - Provider: Sonya [...] this informatio n is protected by the Federal Confidentiality of Alcohol and Drug Abuse Patient Records regulations: The Federal rules restrict any use of the information to criminally investigate or prosecute any alcohol or drug abuse patient.[facility] the event this information is protected by the Federal Confidentiality of Alcohol and Drug Abuse Patient Records regulations: The Federal rules restrict any use of the information to criminally investigate or prosecute any alcohol or drug abuse patient.[facility] FOR RECORDS PERTAINING TO PATIENTS WHO [...] BE BASED ON THE PRIMARY CLINICAL RECORDS. [facility] provides no warranty or guarantee of the accuracy or completeness of information in this document.
--- NOTE | 2024-11-20 04:30 | RAD_ITS ---
PROCEDURE: CHEST 1 VIEW (PORTABLE) 11/20/2024 REASON FOR EXAM: AE CHF TECHNIQUE: Frontal view of the chest. COMPARISON: 11/19/2024 FINDINGS: Rotated patient. Cardiac enlargement. Bilateral chronic rotator cuff tears. Under aerated lungs. Possible small effusions. Retrocardiac opacity, atelectasis/consolidation. Small improvement in right basilar opacity with some residual airspace disease favoring atelectasis. No pneumothorax. RAD/Chest 1 View (Portable) IMPRESSION: Small interval improving aeration at the right lung base. Reading Location: [place] [id number]
--- OUTSIDE RECORDS SUMMARY | 2024-11-20 04:43 | XMS RPT_ITS | CCD ---
Author Organization [facility] [employer] [facility] Care Team Providers Care Soap Chipper Name Role Phone Huan Gilman Unavailable Unavailable [...] Primary Care Provider Huan Gilman MD Unavailable [phone] Diana Marcano MA Unavailable Unavailable Huan [...] Primary Care Provider Huan Gilman MD Unavailable [phone] Lim OLS, Dominic Primary Care Provider Unavaila [...] Unavailable Percy CAMPOS, Dr. Cruz Attending Provider [phone] Precy CAMPOS, Dr. Cruz Emergency Provider Junior REHMAN, [...] Chen Attending Provider Abram Pedraza MD, Dr. Ávlarez Attending Provider Mandy Simms Attending Provider Milo REHMAN, Dr. Álvarez Referring Provider Milo REHMAN, Dr. Álvarez Other Provider Unavailable Primary Care Provider Shaye Mullen MD, Dr. Chen Primary Care Provider Maryam Amaro MD, Dr. Natarajan Attending Provider Unavail iesha Mullen MD, Dr. Chen Referring Provider Abram Pemberton FINANCIAL SALES PROFESSIONAL-C, Yennifer Attending Provider Junior REHMAN, Dr. Chen [...] Attending Unavailable Lim NIC, Dominic Attending Unavailable Milo, Henri Referring Unavailable Milo, Henri Consulting Unavailable [...] Care Unavailable Lisa, Nino Referring Unavailable Lisa, [place] Attending Unavailable Shabbir Ricks Attending Unavailable Shabbir [...] Ever Last Consulting Unavailable Natalie Espinal Attending UnavailDoimnic Cortez Primary Care Unavailable Seun Rollins Attending [...] sources) venlafaxine; Translations: [Effexor] Drug Allergy Edema [facility] Work Phone: (20 sources) venlafaxine; Translations: [Effexor] Drug Allergy Edema [facility] Work Phone: (5 sources) venlafaxine; Translations: [VENLAFAXINE] Drug Allergy 08-30-2022 [facility] Medications Current Medications Medication Drug Class(es) [...] pain scores based on patient preference? Yes [id number] 200 actuat albuterol 0.09 mg/actuat metered dose [...] 11-11-2023 docusate sodium 50 mg / sennosides, senior living 8.6 mg oral tablet (1 source) Start: [...] August discolor urine (orange). polyethylene glycol 3350 97959 mg powder for oral solution (20 sources) [...] once daily at bedtime. 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, managed as type 2 (CMS/FORMERLY [facility]) Take 1 tablet (500 mg) by mouth [...] intravenously every six hours polyethylene glycol 3350 [id number] mg / potassium chloride 2970 mg / sodium bicarbonate 6740 mg / sodium chloride 5860 mg / sodium sulfate 30232 mg powder for oral solution (11 sources) [...] 12:00am Start: 12-31-2023 take 2 tablets by [facility] daily Sennosides 8.6 mg tablet [...] other medications] Episodic Other aftercare (3 sources) skilled nursing (current) use of anticoagulants; Translations: [skilled nursing (current) use of anticoagulants] Onset: 09-15-2022 Episodic Other aftercare (1 source) skilled nursing (current) use of oral hypoglycemic drugs; Translations: [skilled nursing (current) use of oral hypoglycemic drugs] Onset: 09-15-2022 Episodic Other aftercare (4 sources) Long-term current use of anticoagulant; 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 Absolute neutrophil countOrd ered By: Shabbir Ricks on 11-18-2024 Neutrophils (Bld) [#/Vol] 6.2 10*3/uL 2.0-7.[address] [facility] Anion gap in Serum or Plasma Ordered By: Shabbir Ricks on 11-18-2024 Anion gap [Moles/Vol] 14 mmol/L 5-15 [facility] Automated lymphocyte count a s percentage of total leukocytesOrdered By: Shabbir Ricks on 11-18-2024 Lymphocytes/100 WBC Auto (Unsp spec) 23.6 % - [facility] BUN/creatinine ratioOrdered By: Shabbir Ricks on 11-18-2024 Urea nitrogen/Creatinine [Mass ratio] 32.2 mg/mg High - [facility] Basic Metabolic Profile (BMP )on 11-18-2024 BUN/CRE 32.2 RATIO High - [facility] Comment on above: Performed By: #### L 100.0100, L500.2500 ####[facility] [address] [place], [address] Calcium [Mass/Vol] 8.7 mg/dL Normal 7.6-11.0 [facility] Comment on above: Performed By: #### L 100.0100, L500.2500 ####[facility] [address] [place], [address] Chloride [Moles/Vol] 99 mmol/L Normal 98-108 [place] Comment on above: Performed By: #### L 100.0100, L500.2500 ####[facility] [address] [place], [address] CO2 [Moles/Vol] 25.2 mmol/L Normal 21.0-32.[address] [facility] Comment on above: Performed By: #### L 100.0100, L500.2500 ####[facility] [address] [place], [address] Creatinine [Mass/Vol] 1.40 mg/dL High 0.70-1.20 [facility] Comment on above: Performed By: #### L 100.0100, L500.2500 ####[facility] [address] [place], [address] ECRCL 43.57 ml/min Low 50-[address] [facility] Comment on above: Performed By: #### L 100.0100, L500.2500 ####[facility] [address] [place], [address] GAP 14 Normal 5-[address] [facility] Comment on above: Performed By: #### L 100.0100, L500.2500 ####[facility] [address] [place], [address] GFR/1.73 sq M.predicted among non-blacks MDRD (S/P/Bld) [Vol rate/Area] 39 mL/min/{1.73_m2} Low >[address] [facility] Comment on above: Result Comment: mL/m in/1.73m2 CKD-EPI Creatinine Equation (2020) Performed By: #### L 100.0100, L500.2500 ####[facility] [address] [place], [address] Glucose [Mass/Vol] 125 mg/dL High 70-99 [facility] Comment on above: Performed By: #### L 100.0100, L500.2500 ####[facility] [address] [place], [address] Potassium [Moles/Vol] 3.8 mmol/L Normal 3.3-5.1 [facility] Comment on above: Result Comment: Hemo lysis present, Results??could be affected.?? Performed By: #### L 100.0100, L500.2500 ####[facility] [address] [place], [address] Sodium [Moles/Vol] 138 mmol/L Normal 133-145 [facility] Comment on above: Performed By: #### L 100.0100, L500.2500 ####[facility] [address] [place], [address] Urea nitrogen [Mass/Vol] 45 mg/dL High 4-[address] [facility] Comment on above: Performed By: #### L 100.0100, L500.2500 ####[facility] [address] [place], [address] Basophil percentageOrdered B y: Shabbir Alejandroparisgertrude on 11-18-2024 Basophils/100 WBC (Bld) 0.4 % 0-[address] [facility] Bedside Glucoseon 11-18-2024 FINGERSTICK GLU 127 mg/dL High 74-[address] [facility] Comment on above: Result Comment: ASHU KELLY OF PATIENT CARE PER NURSING PROTOCOL Performed By: #### L 501.080 ####[facility] [address] [place], [address] CBC W/Diff, Automatedon 11-07 Absolute Lymph 2.25 X10 3/uL Normal 0.83-4.[address] [facility] Comment on above: Performed By: #### L 100.0100, L500.2500 ####[facility] [address] [place], [address] Absolute Neut 6.2 X10 3/uL Normal 2.0-7.[address] [facility] Comment on above: Performed By: #### L 100.0100, L500.2500 ####[facility] [address] [place], [address] Basophils/100 WBC (Bld) 0.4 % Normal 0-[address] [facility] Comment on above: Performed By: #### L 100.0100, L500.2500 ####[facility] [address] [place], [address] Eosinophils/100 WBC (Bld) 1.9 % Normal 0-[address] [facility] Comment on above: Performed By: #### L 100.0100, L500.2500 ####[facility] [address] [place], [address] Erythrocyte distribution width (RBC) [Ratio] 17.7 % High 11.6-14.[address] [facility] Comment on above: Performed By: #### L 100.0100, L500.2500 ####[facility] [address] [place], [address] Hematocrit (Bld) [Volume fraction] 34.3 % Low 37-[address] [facility] Comment on above: Performed By: #### L 100.0100, L500.2500 ####[facility] [address] [place], [address] Hemoglobin (Bld) [Mass/Vol] 10.3 g/dL Low 12.0-15.[address] [facility] Comment on above: Performed By: #### L 100.0100, L500.2500 ####[facility] [address] [place], [address] IG% 0.300 Normal 0.0-0.[address] [facility] Comment on above: Result Comment: IG% - Immature Granulocytes (promyelocytes, myelocytes andmetamyelocytes) > 1% indicates that a LEFT SHIFT is Present. Performed By: #### L 100.0100, L500.2500 ####[facility] [address] [place], [address] Lymphocytes/100 WBC (Bld) 23.6 % Normal 19-[address] [facility] Comment on above: Performed By: #### L 100.0100, L500.2500 ####[facility] [address] [place], [address] MCH (RBC) [Entitic mass] 27.0 pg Normal 27.0-32.[address] [facility] Comment on above: Performed By: #### L 100.0100, L500.2500 ####[facility] [address] [place], [address] MCHC (RBC) [Mass/Vol] 30.0 g/dL Low 32-36 [facility] Comment on above: Performed By: #### L 100.0100, L500.2500 ####[facility] [address] [place], [address] MCV (RBC) [Entitic vol] 90.0 fL Normal 81-[address] [facility] Comment on above: Performed By: #### L 100.0100, L500.2500 ####[facility] [address] [place], [address] Monocytes/100 WBC (Bld) 8.6 % Normal 0-[address] [facility] Comment on above: Performed By: #### L 100.0100, L500.2500 ####[facility] [address] [place], [address] Neutrophils/100 WBC (Bld) 65.2 % Normal 47-[address] [facility] Comment on above: Performed By: #### L 100.0100, L500.2500 ####[facility] [address] [place], [address] Nucleated RBC (Bld) [#/Vol] 0 10*3/uL Normal 0-[address] [facility] Comment on above: Performed By: #### L 100.0100, L500.2500 ####[facility] [address] [place], [address] Platelet mean volume (Bld) [Entitic vol] 10.3 fL Normal 6.2-12.[address] [facility] Comment on above: Performed By: #### L 100.0100, L500.2500 ####[facility] [address] [place], [address] Platelets (Bld) [#/Vol] 110 10*3/uL Low 150-[address] [facility] Comment on above: Performed By: #### L 100.0100, L500.2500 ####[facility] [address] [place], [address] RBC (Bld) [#/Vol] 3.81 10*6/uL Low 4.2-5.4 [facility] Comment on above: Performed By: #### L 100.0100, L500.2500 ####[facility] [address] [place], [address] RDW SD 57.4 fl High 35.1-43.[address] [facility] Comment on above: Performed By: #### L 100.0100, L500.2500 ####[facility] [address] [place], [address] WBC (Bld) [#/Vol] 9.6 10*3/uL Normal 4.4-11.0 [facility] Comment on above: Performed By: #### L 100.0100, L500.2500 ####[facility] [address] [place], [address] Carbon dioxide, total [Moles /volume] in Central venous bloodOrdered By: Shabbir Ricks on 11-18-2024 CO2 [Moles/Vol] 25.2 mmol/L 21.0-32.[address] [facility] Chloride assayOrdered By: Cintia Ricks on 11-18-2024 Chloride [Moles/Vol] 99 mmol/L 98-108 [place] Eosinophil percentageOrdered By: Shabbir Ricks on 11-18-2024 Eosinophils/100 WBC (Bld) 1.9 % 0-[address] [facility] Erythrocyte distribution wid th ratioOrdered By: Shabbir Ricks on 11-18-2024 Erythrocyte distribution width (RBC) [Ratio] 17.7 % High 11.6-14.[address] [facility] Erythrocyte distribution wid th standard deviationOrdered By: Shabbir Ricks on 11-18-2024 Erythrocyte distribution width (RBC) [Ratio] 57.4 fl High 35.1-43.[address] [facility] Glomerular filtration rate ( GFR) estimation/1.73 sq m using serum, plasma, or whole bOrdered By: Shabbir Ricks on 11-18-2024 GFR/1.73 sq M.predicted among non-blacks MDRD (S/P/Bld) [Vol rate/Area] 39 mL/min/{1.73_m2} Low >[address] [facility] Comment on above: mL/min/1.73m2 CKD-EP I Creatinine Equation (2020) [facility] deOrdered By: Shabbir Ricks on 11-18-2024 Glucose [Mass/Vol] 127 mg/dL High 74-106 [facility] Comment on above: MANAGEMENT OF PATIEN T CARE PER NURSING PROTOCOL Hematocrit Auto (Bld) [Volum e fraction]Ordered By: Shabbir Ricks on 11-18-2024 Hematocrit (Bld) [Volume fraction] 34.3 % Low 37-[address] [facility] Hemoglobin measurementOrdere d By: Shbabir Ricks on 11-18-2024 Hemoglobin (Bld) [Mass/Vol] 10.3 g/dL Low 12.0-15.[address] [facility] Immature granulocytes/100 WB C Auto (Bld)Ordered By: Shabbir Ricks on 11-18-2024 Immature granulocytes/100 WBC (Bld) 0.300 % 0.0-0.[address] [facility] Comment on above: IG% - Immature Granu locytes (promyelocytes, myelocytes and metamyelocytes) > 1% indicates that a LEFT SHIFT is Present. MCV (mean corpuscular volume ) determinationOrdered By: Shabbir Ricks on 11-18-2024 MCV (RBC) [Entitic vol] 90.0 fL 81-[address] [facility] Mean corpuscular hemoglobin (MCH) determinationOrdered By: Shabbir Ricks on 11-18-2024 MCH (RBC) [Entitic mass] 27.0 pg 27.0-32.[address] [facility] Mean corpuscular hemoglobin concentration (MCHC) determinationOrdered By: Shabbir Ricks on 11-18-2024 MCHC (RBC) [Mass/Vol] 30.0 g/dL Low 32-36 [facility] Mean platelet volume determi nationOrdered By: Shabbir Ricks on 11-18-2024 Platelet mean volume (Bld) [Entitic vol] 10.3 fL 6.2-12.[address] [facility] Monocyte percentageOrdered B y: Shabbir Ricks on 11-18-2024 Monocytes/100 WBC (Bld) 8.6 % 0-[address] [facility] Neutrophil percentageOrdered By: Shabbir Ricks on 11-18-2024 Neutrophils/100 WBC (Bld) 65.2 % 47-[address] [facility] Nucleated red blood cell per centageOrdered By: Shabbir Ricks on 11-18-2024 Nucleated RBC/100 WBC (Bld) [Ratio] 0 % 0-[address] [facility] Platelet countOrdered By: Cintia Ricks on 11-18-2024 Platelets (Bld) [#/Vol] 110 10*3/uL Low 150-[address] [facility] Potassium measurement (mass/ volume)Ordered By: Shabbir Ricks on 11-18-2024 Potassium (Unsp spec) [Mass/Vol] 3.8 mmol/L 3.3-5.[address] [facility] Comment on above: Hemolysis present, R esults could be affected. RBC Auto (Bld) [#/Vol]Ordere d By: Shabbir Ricks on 11-18-2024 RBC (Bld) [#/Vol] 3.81 10*6/uL Low 4.2-5.4 [facility] Serum creatinine measurement (mass/volume)Ordered By: Shabbir Ricks on 11-18-2024 Creatinine [Mass/Vol] 1.40 mg/dL High 0.70-1.20 [facility] Serum glucose measurement (m ass/volume)Ordered By: Shabbir Ricks on 11-18-2024 Glucose [Mass/Vol] 125 mg/dL High 70-99 [facility] Serum or plasma calcium kay urement (mass/volume)Ordered By: Shabbir Ricks on 11-18-2024 Calcium [Mass/Vol] 8.7 mg/dL 7.6-11.0 [facility] Serum or plasma urea nitroge n measurement (mass/volume)Ordered By: Shabbir Ricks on 11-18-2024 Urea nitrogen [Mass/Vol] 45 mg/dL High 4-[address] [facility] Sodium levelOrdered By: Lux Ricks on 11-18-2024 Sodium [Moles/Vol] 138 mmol/L 133-145 [facility] White blood cell (WBC) count Ordered By: Shabbir Ricks on 11-18-2024 WBC (Bld) [#/Vol] 9.6 10*3/uL 4.4-11.0 [facility] 12 Lead EKGon 11-17-2024 12 Lead EKG Normal [facility] Basic Metabolic Profile (BMP )on 11-17-2024 BUN/CRE 30.6 RATIO High 10-[address] [facility] Comment on above: Performed By: #### L 100.0100, L500.2500 ####[facility] [address] [place], [address] Calcium [Mass/Vol] 8.3 mg/dL Normal 7.6-11.0 [facility] Comment on above: Performed By: #### L 100.0100, L500.2500 ####[facility] [address] [place], [address] Chloride [Moles/Vol] 99 mmol/L Normal 98-108 [place] Comment on above: Performed By: #### L 100.0100, L500.2500 ####[facility] [address] [place], [address] CO2 [Moles/Vol] 25.8 mmol/L Normal 21.0-32.[address] [facility] Comment on above: Performed By: #### L 100.0100, L500.2500 ####[facility] [address] [place], [address] Creatinine [Mass/Vol] 1.55 mg/dL High 0.70-1.20 [facility] Comment on above: Performed By: #### L 100.0100, L500.2500 ####[facility] [address] [place], [address] ECRCL 39.03 ml/min Low 50-[address] [facility] Comment on above: Performed By: #### L 100.0100, L500.2500 ####[facility] [address] [place], [address] GAP 13 Normal 5-[address] [facility] Comment on above: Performed By: #### L 100.0100, L500.2500 ####[facility] [address] [place], [address] GFR/1.73 sq M.predicted among non-blacks MDRD (S/P/Bld) [Vol rate/Area] 35 mL/min/{1.73_m2} Low >[address] [facility] Comment on above: Result Comment: mL/m in/1.73m2 CKD-EPI Creatinine Equation (2020) Performed By: #### L 100.0100, L500.2500 ####[facility] [address] [place], [address] Glucose [Mass/Vol] 118 mg/dL High 70-99 [facility] Comment on above: Performed By: #### L 100.0100, L500.2500 ####[facility] [address] [place], [address] Potassium [Moles/Vol] 3.2 mmol/L Low 3.3-5.1 [facility] Comment on above: Performed By: #### L 100.0100, L500.2500 ####[facility] [address] [place], [address] Sodium [Moles/Vol] 137 mmol/L Normal 133-145 [facility] Comment on above: Performed By: #### L 100.0100, L500.2500 ####[facility] [address] [place], [address] Urea nitrogen [Mass/Vol] 48 mg/dL High 4-[address] [facility] Comment on above: Performed By: #### L 100.0100, L500.2500 ####[facility] [address] [place], [address] Bedside Glucoseon 11-17-2024 FINGERSTICK GLU 149 mg/dL High 74-[address] [facility] Comment on above: Result Comment: ASHU GEMENT OF PATIENT CARE PER NURSING PROTOCOL Performed By: #### L 501.080 ####[facility] [address] [place], [address] FINGERSTICK GLU 114 mg/dL High 74-[address] [facility] Comment on above: Result Comment: ASHU GEMENT OF PATIENT CARE PER NURSING PROTOCOL Performed By: #### L 501.080 ####[facility] [address] [place], [address] FINGERSTICK GLU 109 mg/dL High 74-[address] [facility] Comment on above: Result Comment: ASHU GEMENT OF PATIENT CARE PER NURSING PROTOCOL Performed By: #### L 501.080 ####[facility] [address] [place], [address] FINGERSTICK GLU 110 mg/dL High 74-[address] [facility] Comment on above: Result Comment: ASHU GEMENT OF PATIENT CARE PER NURSING PROTOCOL Performed By: #### L 501.080 ####[facility] [address] [place], [address] FINGERSTICK GLU 149 mg/dL High 74-[address] [facility] Comment on above: Result Comment: ASHU GEMENT OF PATIENT CARE PER NURSING PROTOCOL Performed By: #### L 501.080 ####[facility] [address] [place], [address] Blood manual differential co mment interpretation (narrative result)Ordered By: Manuel Campuzano on 11-17-2024 Manual differential comment Jd (Bld) [Interp] SCANNED [facility] CBC W/Diff, Automatedon 11-07 PLT EST MOD DEC Normal ADEQ [facility] Comment on above: Performed By: #### L 100.0100, L500.2500 ####[facility] [address] [place], [address] SMEAR COMMENT SCANNED Normal [facility] Comment on above: Performed By: #### L 100.0100, L500.2500 ####[facility] [address] [place], [address] EGD Reporton 11-17-2024 EGD Report Normal [facility] Electrocardiogram reportOrde red By: Nino Gonzalez on 11-17-2024 EKG study [facility] [address] [place] [address] 12 Lead EKG 11/17/24 0426 MR#: [id number] Acct: [id number] Name: DARYN GUILLERMO Rep #:[id number] : 1945 78 From: Nino Gonzalez MD Attending Dr: Dr. Shabbir Ricks MD Status: ADM IN Ordering Dr: Manuel Campuzano MD Date: 11/17/24 Location: [facility] Sex: F C Admitted: 11/09/24 Test Reason [...] for LVH, may be normal variant ( [place] product ) Confirmed by LISA MD, NINO ([id number]), editor index GIANNA DILLON ([id number]) on 11/17/2024 1:01:22 PM Referred By: Confirmed By: NINO GONZALEZ MD 11/17/24 1301 Date _ Nino Gonzalez MD CC: Dr. Manuel Campuzano MD; Dr. Shabbir Rciks MD; Dr. Delgado Amaro, DO~ Signed [facility] Other Phone: MR/CON.PCM.GIon 11-17-2024 MR/CON.PCM.GI Normal [facility] MR/OP.PROVATon 11-17-2024 MR/OP.PROVAT Normal [facility] MR/POSTOP.ANEon 11-17-2024 MR/POSTOP.ANE Normal [facility] MR/PUFRPYBA2qv 11-17-2024 MR/POSTOPAN2 Normal [facility] Platelet estimateOrdered By: Manuel Campuzano on 11-17-2024 Platelets LM Ql (Bld) MOD DEC ADEQ [facility] Basic Metabolic Profile (BMP )on 11-16-2024 BUN/CRE 29.0 RATIO High 10-[address] [facility] Comment on above: Performed By: #### L 500.2500 ####[facility] [address] [place], [address] Calcium [Mass/Vol] 8.3 mg/dL Normal 7.6-11.0 [facility] Comment on above: Performed By: #### L 500.2500 ####[facility] [address] [place], [address] Chloride [Moles/Vol] 96 mmol/L Low 98-108 [place] Comment on above: Performed By: #### L 500.2500 ####[facility] [address] [place], [address] CO2 [Moles/Vol] 30.3 mmol/L Normal 21.0-32.[address] [facility] Comment on above: Performed By: #### L 500.2500 ####[facility] [facility] [address] [place], [address] Creatinine [Mass/Vol] 1.93 mg/dL High 0.70-1.20 [facility] Comment on above: Performed By: #### L 500.2500 ####[facility] [address] [place], [address] ECRCL 30.83 ml/min Low 50-[address] [facility] Comment on above: Performed By: #### L 500.2500 ####[facility] [address] [place], [address] GAP 13 Normal 5-[address] [facility] Comment on above: Performed By: #### L 500.2500 ####[facility] [address] [place], [address] GFR/1.73 sq M.predicted among non-blacks MDRD (S/P/Bld) [Vol rate/Area] 27 mL/min/{1.73_m2} Low >[address] [facility] Comment on above: Result Comment: mL/m in/1.73m2 CKD-EPI Creatinine Equation (2020) Performed By: #### L 500.2500 ####[facility] [address] [place], [address] Glucose [Mass/Vol] 117 mg/dL High 70-99 [facility] Comment on above: Performed By: #### L 500.2500 ####[facility] [address] [place], [address] Potassium [Moles/Vol] 3.4 mmol/L Normal 3.3-5.1 [facility] Comment on above: Performed By: #### L 500.2500 ####[facility] [address] [place], [address] Sodium [Moles/Vol] 140 mmol/L Normal 133-145 [facility] Comment on above: Performed By: #### L 500.2500 ####[facility] [address] [place], [address] Urea nitrogen [Mass/Vol] 56 mg/dL High 4-[address] [facility] Comment on above: Performed By: #### L 500.2500 ####[facility] [address] [place], [address] Bedside Glucoseon 11-16-2024 FINGERSTICK GLU 152 mg/dL High 74-[address] [facility] Comment on above: Result Comment: ASHU GEMENT OF PATIENT CARE PER NURSING PROTOCOL Performed By: #### L 501.080 ####[facility] [address] [place], [address] FINGERSTICK GLU 174 mg/dL High 74-[address] [facility] Comment on above: Result Comment: ASHU GEMENT OF PATIENT CARE PER NURSING PROTOCOL Performed By: #### L 501.080 ####[facility] [address] [place], [address] FINGERSTICK GLU 118 mg/dL High 74-[address] [facility] Comment on above: Result Comment: ASHU GEMENT OF PATIENT CARE PER NURSING PROTOCOL Performed By: #### L 501.080 ####[facility] [address] [place], [address] Basic Metabolic Profile (BMP )on 11-15-2024 BUN/CRE 25.6 RATIO High 10-[address] [facility] Comment on above: Performed By: #### L 500.2500 ####[facility] [address] [place], [address] Calcium [Mass/Vol] 8.0 mg/dL Normal 7.6-11.0 [facility] Comment on above: Performed By: #### L 500.2500 ####[facility] [address] [place], [address] Chloride [Moles/Vol] 95 mmol/L Low 98-108 [place] Comment on above: Performed By: #### L 500.2500 ####[facility] [address] [place], [address] CO2 [Moles/Vol] 31.3 mmol/L Normal 21.0-32.[address] [facility] Comment on above: Performed By: #### L 500.2500 ####[facility] [address] [place], [address] Creatinine [Mass/Vol] 2.49 mg/dL High 0.70-1.20 [facility] Comment on above: Performed By: #### L 500.2500 ####[facility] [address] [place], [address] ECRCL 23.89 ml/min Low 50-[address] [facility] Comment on above: Performed By: #### L 500.2500 ####[facility] [address] [place], [address] GAP 12 Normal 5-[address] [facility] Comment on above: Performed By: #### L 500.2500 ####[facility] [address] [place], [address] GFR/1.73 sq M.predicted among non-blacks MDRD (S/P/Bld) [Vol rate/Area] 20 mL/min/{1.73_m2} Low >[address] [facility] Comment on above: Result Comment: mL/m in/1.73m2 CKD-EPI Creatinine Equation (2020) Performed By: #### L 500.2500 ####[facility] [address] [place], [address] Glucose [Mass/Vol] 157 mg/dL High 70-99 [facility] Comment on above: Performed By: #### L 500.2500 ####[facility] [address] [place], [address] Potassium [Moles/Vol] 2.9 mmol/L Low 3.3-5.1 [facility] Comment on above: Performed By: #### L 500.2500 ####[facility] [address] [place], [address] Sodium [Moles/Vol] 138 mmol/L Normal 133-145 [facility] Comment on above: Performed By: #### L 500.2500 ####[facility] [address] [place], [address] Urea nitrogen [Mass/Vol] 64 mg/dL High 4-[address] [facility] Comment on above: Performed By: #### L 500.2500 ####[facility] [address] [place], [address] Bedside Glucoseon 11-15-2024 FINGERSTICK GLU 134 mg/dL High 74-[address] [facility] Comment on above: Result Comment: ASHU GEMENT OF PATIENT CARE PER NURSING PROTOCOL Performed By: #### L 501.080 ####[facility] [address] [place], [address] FINGERSTICK GLU 135 mg/dL High 74-[address] [facility] Comment on above: Result Comment: ASHU GEMENT OF PATIENT CARE PER NURSING PROTOCOL Performed By: #### L 501.080 ####[facility] [address] [place], [address] FINGERSTICK GLU 140 mg/dL High 74-[address] [facility] Comment on above: Result Comment: ASHU GEMENT OF PATIENT CARE PER NURSING PROTOCOL Performed By: #### L 501.080 ####[facility] [address] [place], [address] FINGERSTICK GLU 150 mg/dL High 74-[address] [facility] Comment on above: Result Comment: ASHU GEMENT OF PATIENT CARE PER NURSING PROTOCOL Performed By: #### L 501.080 ####[facility] [address] [place], [address] Bedside Glucoseon 11-14-2024 FINGERSTICK GLU 138 mg/dL High [address] [place] [address] Comment on above: Result Comment: ASHU GEMENT OF PATIENT CARE PER NURSING PROTOCOL Performed By: #### L 501.080 ####[facility] [address] [place], [address] FINGERSTICK GLU 173 mg/dL High [facility] [facility] Comment on above: Result Comment: ASHU GEMENT OF PATIENT CARE PER NURSING PROTOCOL Performed By: #### L 501.080 ####[facility] [address] [place], [address] FINGERSTICK GLU 161 mg/dL High [facility] [facility] Comment on above: Result Comment: ASHU GEMENT OF PATIENT CARE PER NURSING PROTOCOL Performed By: #### L 501.080 ####[facility] [address] [place], [address] FINGERSTICK GLU 162 mg/dL High [address] [place] [address] Comment on above: Result Comment: ASHU GEMENT OF PATIENT CARE PER NURSING PROTOCOL Performed By: #### L 501.080 ####[facility] [address] [place], [address] FINGERSTICK GLU 191 mg/dL High [address] [place] [address] Comment on above: Result Comment: ASHU GEMENT OF PATIENT CARE PER NURSING PROTOCOL Performed By: #### L 501.080 ####[facility] [address] [place], [address] Bilirubin, totalOrdered By: Preeti Wood on 11-14-2024 Bilirubin [Mass/Vol] 0.87 mg/dL 0.00-1.30 [place] CBC W/Diff, Automatedon Absolute Lymph 1.79 X10 3/uL Normal 0.83-4.[address] [facility] Comment on above: Performed By: #### L 100.0100, L500.4050 ####[facility] [address] [place], [address] Absolute Neut 6.3 X10 3/uL Normal 2.0-7.[address] [facility] Comment on above: Performed By: #### L 100.0100, L500.4050 ####[facility] [address] [place], [address] Basophils/100 WBC (Bld) 0.1 % Normal 0-[address] [facility] Comment on above: Performed By: #### L 100.0100, L500.4050 ####[facility] [address] [place], [address] Eosinophils/100 WBC (Bld) 0.8 % Normal 0-[address] [facility] Comment on above: Performed By: #### L 100.0100, L500.4050 ####[facility] [address] [place], [address] Erythrocyte distribution width (RBC) [Ratio] 18.4 % High 11.6-14.[address] [facility] Comment on above: Performed By: #### L 100.0100, L500.4050 ####[facility] [address] [place], [address] Hematocrit (Bld) [Volume fraction] 32.2 % Low 37-[address] [facility] Comment on above: Performed By: #### L 100.0100, L500.4050 ####[facility] [address] [place], [address] Hemoglobin (Bld) [Mass/Vol] 9.7 g/dL Low 12.0-15.[address] [facility] Comment on above: Performed By: #### L 100.0100, L500.4050 ####[facility] [address] [place], [address] IG% 0.700 Normal 0.0-0.[address] [facility] Comment on above: Result Comment: IG% - Immature Granulocytes (promyelocytes, myelocytes andmetamyelocytes) > 1% indicates that a LEFT SHIFT is Present. Performed By: #### L 100.0100, L500.4050 ####[facility] [address] [place], [address] Lymphocytes/100 WBC (Bld) 20.0 % Normal 19-[address] [facility] Comment on above: Performed By: #### L 100.0100, L500.4050 ####[facility] [address] [place], [address] MCH (RBC) [Entitic mass] 26.9 pg Low 27.0-32.[address] [facility] Comment on above: Performed By: #### L 100.0100, L500.4050 ####[facility] [address] [place], [address] MCHC (RBC) [Mass/Vol] 30.1 g/dL Low 32-36 [facility] Comment on above: Performed By: #### L 100.0100, L500.4050 ####[facility] [address] [place], [address] MCV (RBC) [Entitic vol] 89.4 fL Normal 81-[address] [facility] Comment on above: Performed By: #### L 100.0100, L500.4050 ####[facility] [address] [place], [address] Monocytes/100 WBC (Bld) 7.6 % Normal 0-[address] [facility] Comment on above: Performed By: #### L 100.0100, L500.4050 ####[facility] [address] [place], [address] Neutrophils/100 WBC (Bld) 70.8 % High 47-[address] [facility] Comment on above: Performed By: #### L 100.0100, L500.4050 ####[facility] [address] [place], [address] Nucleated RBC (Bld) [#/Vol] 0 10*3/uL Normal 0-[address] [facility] Comment on above: Performed By: #### L 100.0100, L500.4050 ####[facility] [address] [place], [address] Platelet mean volume (Bld) [Entitic vol] 10.1 fL Normal 6.2-12.[address] [facility] Comment on above: Performed By: #### L 100.0100, L500.4050 ####[facility] [address] [place], [address] Platelets (Bld) [#/Vol] 129 10*3/uL Low 150-[address] [facility] Comment on above: Performed By: #### L 100.0100, L500.4050 ####[facility] [address] [place], [address] RBC (Bld) [#/Vol] 3.60 10*6/uL Low 4.2-5.4 [facility] Comment on above: Performed By: #### L 100.0100, L500.4050 ####[facility] [address] [place], [address] RDW SD 54.4 fl High 35.1-43.[address] [facility] Comment on above: Performed By: #### L 100.0100, L500.4050 ####[facility] [address] [place], [address] WBC (Bld) [#/Vol] 8.9 10*3/uL Normal 4.4-11.0 [facility] Comment on above: Performed By: #### L 100.0100, L500.4050 ####[facility] [address] [place], [address] Comprehensive Metabolic Prof ilon 11-14-2024 ALT [Catalytic activity/Vol] 778 U/L High <=[address] [facility] Comment on above: Performed By: #### L 100.0100, L500.4050 ####[facility] [address] [place], [address] AST [Catalytic activity/Vol] 1001 U/L High <=[address] [facility] Comment on above: Performed By: #### L 100.0100, L500.4050 ####[facility] [address] [place], [address] Creatinine, Urine (random)on 11-14-2024 UR CREAT 98.40 mg/dL Normal 28.00-217.[address] [facility] Comment on above: Performed By: #### L 501.1200, L501.5500 ####[facility] [address] [place], [place], [address] Laboratory - Chemistry and C hemistry - challengeOrdered By: Preeti Wood on 11-14-2024 AST [Catalytic activity/Vol] 1001 U/L High <[address] [facility] Modified Barium Swallow Stud yon 11-14-2024 Modified Barium Swallow Study Normal [facility] Random urine creatinine kay urement (mass/volume)Ordered By: Radha Kee on 11-14-2024 Creatinine Unsp time (U) [Mass/Vol] 98.40 mg/dL 28.00-217.[address] [facility] Serum globulin measurementOr dered By: Preeti Wood on 11-14-2024 Globulin (S) [Mass/Vol] 2.6 g/dL 2.2-4.[address] [facility] Serum or plasma alanine sousa otransferase (ALT) measurementOrdered By: Preeti Wood on 11-14-2024 ALT [Catalytic activity/Vol] 778 U/L High <[address] [facility] Serum or plasma albumin kay urement (mass/volume)Ordered By: Preeti Wood on 11-14-2024 Albumin [Mass/Vol] 3.2 g/dL Low 3.4-4.8 [facility] Serum or plasma albumin/glob ulin mass ratioOrdered By: Preeti Wood on 11-14-2024 Albumin/Globulin [Mass ratio] 1.2 {ratio} 0.9-2.[address] [facility] Serum or plasma alkaline radha sphatase measurementOrdered By: Preeti Wood on 11-14-2024 ALP [Catalytic activity/Vol] 230 U/L High 35-[address] [facility] Total proteinOrdered By: Allyssa abrilrommel Nina on 11-14-2024 Protein [Mass/Vol] 5.8 g/dL Low 5.9-8.4 [facility] Urine Sodiumon 11-14-2024 UR NA < 20 Normal Not Establ. [facility] Comment on above: Performed By: #### L 501.1200, L501.5500 ####[facility] [address] [place], [address] Urine sodium measurement (mo les/volume)Ordered By: Radha Kee on 11-14-2024 Sodium (U) [Moles/Vol] mmol/L Not Establ. [facility] Basic Metabolic Profile (BMP )on 11-13-2024 BUN/CRE 20.1 RATIO High 10-[address] [facility] Comment on above: Performed By: #### L 100.0100, L500.2500 ####[facility] [address] [place], [address] Calcium [Mass/Vol] 7.9 mg/dL Normal 7.6-11.0 [facility] Comment on above: Performed By: #### L 100.0100, L500.2500 ####[facility] [address] [place], [address] Chloride [Moles/Vol] 93 mmol/L Low 98-108 [place] Comment on above: Performed By: #### L 100.0100, L500.2500 ####[facility] [address] [place], [address] CO2 [Moles/Vol] 22.7 mmol/L Normal 21.0-32.[address] [facility] Comment on above: Performed By: #### L 100.0100, L500.2500 ####[facility] [address] [place], [address] Creatinine [Mass/Vol] 3.47 mg/dL High 0.70-1.20 [facility] Comment on above: Performed By: #### L 100.0100, L500.2500 ####[facility] [address] [place], [address] ECRCL 16.82 ml/min Low 50-[address] [facility] Comment on above: Performed By: #### L 100.0100, L500.2500 ####[facility] [address] [place], [address] GAP 20 High 5-[address] [facility] Comment on above: Performed By: #### L 100.0100, L500.2500 ####[facility] [address] [place], [address] GFR/1.73 sq M.predicted among non-blacks MDRD (S/P/Bld) [Vol rate/Area] 13 mL/min/{1.73_m2} Low >[address] [facility] Comment on above: Result Comment: mL/m in/1.73m2 CKD-EPI Creatinine Equation (2020) Performed By: #### L 100.0100, L500.2500 ####[facility] [address] [place], [address] Glucose [Mass/Vol] 195 mg/dL High 70-99 [facility] Comment on above: Performed By: #### L 100.0100, L500.2500 ####[facility] [address] [place], [address] Potassium [Moles/Vol] 4.6 mmol/L Normal 3.3-5.1 [facility] Comment on above: Performed By: #### L 100.0100, L500.2500 ####[facility] [address] [place], [address] Sodium [Moles/Vol] 135 mmol/L Normal 133-145 [facility] Comment on above: Performed By: #### L 100.0100, L500.2500 ####[facility] [address] [place], [address] Urea nitrogen [Mass/Vol] 70 mg/dL High 4-[address] [facility] Comment on above: Performed By: #### L 100.0100, L500.2500 ####[facility] [address] [place], [address] Bedside Glucoseon 11-13-2024 FINGERSTICK GLU 174 mg/dL High 74-[address] [facility] Comment on above: Result Comment: ASHU GEMENT OF PATIENT CARE PER NURSING PROTOCOL Performed By: #### L 501.080 ####[facility] [address] [place], [address] FINGERSTICK GLU 168 mg/dL High 74-[address] [facility] Comment on above: Result Comment: ASHU GEMENT OF PATIENT CARE PER NURSING PROTOCOL Performed By: #### L 501.080 ####[facility] [address] [place], [address] FINGERSTICK GLU 193 mg/dL High 74-[address] [facility] Comment on above: Result Comment: ASHU GEMENT OF PATIENT CARE PER NURSING PROTOCOL Performed By: #### L 501.080 ####[facility] [address] [place], [address] CBC W/Diff, Automatedon 08-0 Absolute Lymph 1.83 X10 3/uL Normal 0.83-4.[address] [facility] Comment on above: Performed By: #### L 100.0100, L500.2500 ####[facility] [address] [place], [address] Absolute Neut 9.2 X10 3/uL High 2.0-7.[address] [facility] Comment on above: Performed By: #### L 100.0100, L500.2500 ####[facility] [address] [place], [address] Basophils/100 WBC (Bld) 0.1 % Normal 0-[address] [facility] Comment on above: Performed By: #### L 100.0100, L500.2500 ####[facility] [address] [place], [address] Eosinophils/100 WBC (Bld) 0.2 % Normal 0-[address] [facility] Comment on above: Performed By: #### L 100.0100, L500.2500 ####[facility] [address] [place], [address] Erythrocyte distribution width (RBC) [Ratio] 18.0 % High 11.6-14.[address] [facility] Comment on above: Performed By: #### L 100.0100, L500.2500 ####[facility] [address] [place], [address] Hematocrit (Bld) [Volume fraction] 33.3 % Low 37-[address] [facility] Comment on above: Performed By: #### L 100.0100, L500.2500 ####[facility] [address] [place], [address] Hemoglobin (Bld) [Mass/Vol] 10.4 g/dL Low 12.0-15.[address] [facility] Comment on above: Performed By: #### L 100.0100, L500.2500 ####[facility] [address] [place], [address] IG% 0.600 Normal 0.0-0.[address] [facility] Comment on above: Result Comment: IG% - Immature Granulocytes (promyelocytes, myelocytes andmetamyelocytes) > 1% indicates that a LEFT SHIFT is Present. Performed By: #### L 100.0100, L500.2500 ####[facility] [address] [place], [address] Lymphocytes/100 WBC (Bld) 15.2 % Low 19-[address] [facility] Comment on above: Performed By: #### L 100.0100, L500.2500 ####[facility] [address] [place], [address] MCH (RBC) [Entitic mass] 27.4 pg Normal 27.0-32.[address] [facility] Comment on above: Performed By: #### L 100.0100, L500.2500 ####[facility] [address] [place], [address] MCHC (RBC) [Mass/Vol] 31.2 g/dL Low 32-36 [facility] Comment on above: Performed By: #### L 100.0100, L500.2500 ####[facility] [address] [place], [address] MCV (RBC) [Entitic vol] 87.6 fL Normal 81-[address] [facility] Comment on above: Performed By: #### L 100.0100, L500.2500 ####[facility] [address] [place], [address] Monocytes/100 WBC (Bld) 7.3 % Normal 0-[address] [facility] Comment on above: Performed By: #### L 100.0100, L500.2500 ####[facility] [address] [place], [address] Neutrophils/100 WBC (Bld) 76.6 % High 47-[address] [facility] Comment on above: Performed By: #### L 100.0100, L500.2500 ####[facility] [address] [place], [address] Nucleated RBC (Bld) [#/Vol] 0.2 10*3/uL Normal 0-[address] [facility] Comment on above: Performed By: #### L 100.0100, L500.2500 ####[facility] [address] [place], [address] Platelet mean volume (Bld) [Entitic vol] 10.1 fL Normal 6.2-12.[address] [facility] Comment on above: Performed By: #### L 100.0100, L500.2500 ####[facility] [address] [place], [address] Platelets (Bld) [#/Vol] 175 10*3/uL Normal 150-[address] [facility] Comment on above: Performed By: #### L 100.0100, L500.2500 ####[facility] [address] [place], [address] RBC (Bld) [#/Vol] 3.80 10*6/uL Low 4.2-5.4 [facility] Comment on above: Performed By: #### L 100.0100, L500.2500 ####[facility] [address] [place], [address] RDW SD 53.2 fl High 35.1-43.[address] [facility] Comment on above: Performed By: #### L 100.0100, L500.2500 ####[facility] [address] [place], [address] WBC (Bld) [#/Vol] 12.0 10*3/uL High 4.4-11.0 [facility] Comment on above: Performed By: #### L 100.0100, L500.2500 ####[facility] [address] [place], [address] Chest 1 View (Portable)on Chest 1 View (Portable) Normal [facility] Basic Metabolic Profile (BMP )on 11-12-2024 BUN/CRE 19.1 RATIO Normal 10-[address] [facility] Comment on above: Performed By: #### L 500.2500 ####[facility] [address] [place], [address] Calcium [Mass/Vol] 8.6 mg/dL Normal 7.6-11.0 [facility] Comment on above: Performed By: #### L 500.2500 ####[facility] [address] [place], [address] Chloride [Moles/Vol] 95 mmol/L Low 98-108 [place] Comment on above: Performed By: #### L 500.2500 ####[facility] [address] [place], [address] CO2 [Moles/Vol] 19.6 mmol/L Low 21.0-32.[address] [facility] Comment on above: Performed By: #### L 500.2500 ####[facility] [address] [place], [address] Creatinine [Mass/Vol] 3.18 mg/dL High 0.70-1.20 [facility] Comment on above: Performed By: #### L 500.2500 ####[facility] [address] [place], [address] ECRCL 18.22 ml/min Low 50-[address] [facility] Comment on above: Performed By: #### L 500.2500 ####[facility] [address] [place], [address] GAP 23 High 5-[address] [facility] Comment on above: Performed By: #### L 500.2500 ####[facility] [address] [place], [address] GFR/1.73 sq M.predicted among non-blacks MDRD (S/P/Bld) [Vol rate/Area] 15 mL/min/{1.73_m2} Low >[address] [facility] Comment on above: Result Comment: mL/m in/1.73m2 CKD-EPI Creatinine Equation (2020) Performed By: #### L 500.2500 ####[facility] [address] [place], [address] Glucose [Mass/Vol] 163 mg/dL High 70-99 [facility] Comment on above: Performed By: #### L 500.2500 ####[facility] [address] [place], [address] Potassium [Moles/Vol] 5.1 mmol/L Normal 3.3-5.1 [facility] Comment on above: Performed By: #### L 500.2500 ####[facility] [address] [place], [address] Sodium [Moles/Vol] 137 mmol/L Normal 133-145 [facility] Comment on above: Performed By: #### L 500.2500 ####[facility] [address] [place], [address] Urea nitrogen [Mass/Vol] 61 mg/dL High 4-[address] [facility] Comment on above: Performed By: #### L 500.2500 ####[facility] [address] [place], [address] BUN/CRE 18.0 RATIO Normal 10-[address] [facility] Comment on above: Performed By: #### L 500.2500 ####[facility] [address] [place], [address] Calcium [Mass/Vol] 9.3 mg/dL Normal 7.6-11.0 [facility] Comment on above: Performed By: #### L 500.2500 ####[facility] [address] [place], [address] Chloride [Moles/Vol] 93 mmol/L Low 98-108 [place] Comment on above: Performed By: #### L 500.2500 ####[facility] [address] [place], [address] CO2 [Moles/Vol] 15.5 mmol/L Low 21.0-32.[address] [facility] Comment on above: Performed By: #### L 500.2500 ####[facility] [address] [place], [address] Creatinine [Mass/Vol] 3.05 mg/dL High 0.70-1.20 [facility] Comment on above: Performed By: #### L 500.2500 ####[facility] [address] [place], [address] ECRCL 19.00 ml/min Low 50-[address] [facility] Comment on above: Performed By: #### L 500.2500 ####[facility] [address] [place], [address] GAP 27 High 5-[address] [facility] Comment on above: Performed By: #### L 500.2500 ####[facility] [address] [place], [address] GFR/1.73 sq M.predicted among non-blacks MDRD (S/P/Bld) [Vol rate/Area] 15 mL/min/{1.73_m2} Low >[address] [facility] Comment on above: Result Comment: mL/m in/1.73m2 CKD-EPI Creatinine Equation (2020) Performed By: #### L 500.2500 ####[facility] [address] [place], [address] Glucose [Mass/Vol] 108 mg/dL High 70-99 [facility] Comment on above: Performed By: #### L 500.2500 ####[facility] [address] [place], [address] Potassium [Moles/Vol] 6.3 mmol/L Invalid Interpretation Code 3.3-5.[address] [facility] Comment on above: Result Comment: Hemo lysis present, Results??could be affected.??Critical Result(s) Called to: Daniel GUSMAN ([facility]) by:Darlin??Results read back by same. Performed By: #### L 500.2500 ####[facility] [address] [place], [address] Sodium [Moles/Vol] 135 mmol/L Normal 133-145 [facility] Comment on above: Performed By: #### L 500.2500 ####[facility] [address] [place], [address] Urea nitrogen [Mass/Vol] 55 mg/dL High 4-[address] [facility] Comment on above: Performed By: #### L 500.2500 ####[facility] [address] [place], [address] Potassium [Moles/Vol] 6.3 mmol/L Invalid Interpretation Code 3.3-5.[address] [facility] Comment on above: Result Comment: Hemo lysis present, Results??could be affected.??Critical Result(s) Called at: by:??Results read back bysame.Hemolysis present, Results??could be affected.??Critical Result(s) Called at: 0629 by:??STELLA SWARTZ Results read back by same. AMENDED REPORT 11/12/24 0629 K previously reported as: 6.3 *H mmol/LHemolysis present, Results??could be affected.??Critical Result(s) Called at: by:??Results read back bysame. Performed By: #### L 500.2500 ####[facility] [address] [place], [place], [id number] Bedside Glucoseon 11-12-2024 FINGERSTICK GLU 185 mg/dL High 74-[address] [facility] Comment on above: Result Comment: ASHU GEMENT OF PATIENT CARE PER NURSING PROTOCOL Performed By: #### L 501.080 ####[facility] [address] [place], [address] FINGERSTICK GLU 171 mg/dL High 74-[address] [facility] Comment on above: Result Comment: ASHU GEMENT OF PATIENT CARE PER NURSING PROTOCOL Performed By: #### L 501.080 ####[facility] [address] [place], [address] FINGERSTICK GLU 110 mg/dL High 74-[address] [facility] Comment on above: Result Comment: ASHU GEMENT OF PATIENT CARE PER NURSING PROTOCOL Performed By: #### L 501.080 ####[facility] [address] [place], [address] Basic Metabolic Profile (BMP )on 11-11-2024 BUN/CRE 21.8 RATIO High 10-[address] [facility] Comment on above: Performed By: #### L 500.2500 ####[facility] [address] [place], [address] Calcium [Mass/Vol] 9.3 mg/dL Normal 7.6-11.0 [facility] Comment on above: Performed By: #### L 500.2500 ####[facility] [address] [place], [address] Chloride [Moles/Vol] 99 mmol/L Normal 98-108 [place] Comment on above: Performed By: #### L 500.2500 ####[facility] [address] [place], [address] CO2 [Moles/Vol] 22.8 mmol/L Normal 21.0-32.[address] [facility] Comment on above: Performed By: #### L 500.2500 ####[facility] [address] [place], [address] Creatinine [Mass/Vol] 2.11 mg/dL High 0.70-1.20 [facility] Comment on above: Performed By: #### L 500.2500 ####[facility] [address] [place], [address] ECRCL 27.55 ml/min Low 50-[address] [facility] Comment on above: Performed By: #### L 500.2500 ####[facility] [address] [place], [address] GAP 18 High 5-[address] [facility] Comment on above: Performed By: #### L 500.2500 ####[facility] [address] [place], [address] GFR/1.73 sq M.predicted among non-blacks MDRD (S/P/Bld) [Vol rate/Area] 24 mL/min/{1.73_m2} Low >[address] [facility] Comment on above: Result Comment: mL/m in/1.73m2 CKD-EPI Creatinine Equation (2020) Performed By: #### L 500.2500 ####[facility] [address] [place], [address] Glucose [Mass/Vol] 91 mg/dL Normal 70-99 [facility] Comment on above: Performed By: #### L 500.2500 ####[facility] [address] [place], [address] Potassium [Moles/Vol] 4.5 mmol/L Normal 3.3-5.1 [facility] Comment on above: Performed By: #### L 500.2500 ####[facility] [address] [place], [address] Sodium [Moles/Vol] 140 mmol/L Normal 133-145 [facility] Comment on above: Performed By: #### L 500.2500 ####[facility] [address] [place], [address] Urea nitrogen [Mass/Vol] 46 mg/dL High 4-[address] [facility] Comment on above: Performed By: #### L 500.2500 ####[facility] [address] [place], [address] Bedside Glucoseon 11-11-2024 FINGERSTICK GLU 85 mg/dL Normal 74-[address] [facility] Comment on above: Result Comment: ASHU GEMENT OF PATIENT CARE PER NURSING PROTOCOL Performed By: #### L 501.080 ####[facility] [address] [place], [address] FINGERSTICK GLU 93 mg/dL Normal 74-[address] [facility] Comment on above: Result Comment: ASHU GEMENT OF PATIENT CARE PER NURSING PROTOCOL Performed By: #### L 501.080 ####[facility] [address] [place], [address] FINGERSTICK GLU 111 mg/dL High 74-[address] [facility] Comment on above: Result Comment: ASHU GEMENT OF PATIENT CARE PER NURSING PROTOCOL Performed By: #### L 501.080 ####[facility] [address] [place], [address] FINGERSTICK GLU 79 mg/dL Normal 74-[address] [facility] Comment on above: Result Comment: ASHU GEMENT OF PATIENT CARE PER NURSING PROTOCOL Performed By: #### L 501.080 ####[facility] [address] [place], [address] FINGERSTICK GLU 68 mg/dL Low 74-[address] [facility] Comment on above: Result Comment: ASHU GEMENT OF PATIENT CARE PER NURSING PROTOCOL Performed By: #### L 501.080 ####[facility] [address] [place], [address] Bilirubin Test strip Ql (U)O rdered By: Jeri Rowland on 08-05-2025 Bilirubin Ql (U) 1 mg/dL High Negative [facility] Comment on above: COLOR OF URINE MAY A FFECT DIPSTICK RESULTS. Chest 1 View (Portable)on Chest 1 View (Portable) Normal [facility] Consultation - Nephrologyon 11-11-2024 Consultation - Nephrology Normal [facility] Electrocardiogram reportOrde red By: Nino Gonzalez on 11-11-2024 EKG study [facility] [address] [place] [address] 12 Lead EKG 11/09/24 0428 MR#: [id number] Acct: [id number] Name: DARYN GUILLERMO BLANE Rep #:[id number] : 1945 78 From: Nino Gonzalez [...] Abnormal ECG Confirmed by NINO GONZALEZ MD ([id number]), editor index CLIF CANALES ([id number]) on 11/11/2024 7:47:01 AM Referred By: Confirmed By: NINO GONZALEZ MD 11/11/24 0747 Date _ Nino Gonzalez MD CC: Dr. Edmundo Monge DO; Dr. Delgado Amaro DO; Dr. Kenyon Shin DO ~ Signed [facility] Other Phone: Ketones Test strip Ql (U)Ord ered By: Jeri Rowland on 11-11-2024 Ketones Ql (U) Negative Negative [facility] Kidney and Bladderon 025 Kidney and Bladder Normal [facility] Microscopic analysis of urin e for red blood cells (RBC)Ordered By: Jeri Rowland on 11-11-2024 Microscopic analysis of urine for red blood cells (RBC) 0 SEEN /hpf 0-[address] [facility] Mucus LM Ql (Urine sed)Order ed By: Jeri Rowland on 11-11-2024 Mucus Ql (Urine sed) 0 SEEN /hpf [facility] Nitrite Test strip Ql (U)Ord ered By: Jeri Rowland on 11-11-2024 Nitrite Ql (U) Negative Negative [facility] Protein Test strip Ql (U)Ord ered By: Jeri Rowland on 11-11-2024 Protein Ql (U) 100 mg/dl High Negative [facility] Protein+Creatinine Ratio,Uri neon 11-11-2024 PROT:CRE RATIO 517 mg/g CRE High 0-[address] [facility] Comment on above: Performed By: #### L 400.0001, L501.0900 ####[facility] [address] [place], [address] Protein (U) [Mass/Vol] 89.5 mg/dL High 0.0-12.0 [facility] Comment on above: Performed By: #### L 400.0001, L501.0900 ####[facility] [address] [place], [address] UR CREAT 173.00 mg/dL Normal 28.00-217.[address] [facility] Comment on above: Performed By: #### L 400.0001, L501.0900 ####[facility] [address] [place], [address] Squamous epithelial cells de tection in urine sediment by light microscopyOrdered By: Jeri Rowland on 11-11-2024 Epithelial cells.squamous LM Ql (Urine sed) 0 SEEN /hpf 5-[address] [facility] Urinalysis, Completeon 11-11 BACTERIA 3+ /hpf Normal None Seen [facility] Comment on above: Order Comment: CHAD TER SPECIMEN Performed By: #### L 400.0001, L501.0900 ####[facility] [address] [place], [address] WBC 25-50 SEEN Normal 0-[address] [facility] Comment on above: Order Comment: CHAD TER SPECIMEN Performed By: #### L 400.0001, L501.0900 ####[facility] [address] [place], [address] EPI,SQUAMOUS 0 SEEN Normal 5-[address] [facility] Comment on above: Order Comment: CHAD TER SPECIMEN Performed By: #### L 400.0001, L501.0900 ####[facility] [address] [place], [address] Mucus Ql (Urine sed) 0 SEEN Normal [place] Comment on above: Order Comment: CHAD TER SPECIMEN Performed By: #### L 400.0001, L501.0900 ####[facility] [address] [place], [address] RBC 0 SEEN Normal 0-[address] [facility] Comment on above: Order Comment: CHAD TER SPECIMEN Performed By: #### L 400.0001, L501.0900 ####[facility] [address] [place], [address] Urine clarityOrdered By: Sampson Rowland on 11-11-2024 Clarity (U) Cloudy Clear [facility] Urine color determinationOrd ered By: Jeri Rowland on 11-11-2024 Color (U) Yellow Yellow [facility] Urine glucose detectionOrder ed By: Jeri Rowland on 11-11-2024 Glucose Ql (U) 50 mg/dl High Normal [facility] Urine leukocyte esterase det ection by dipstickOrdered By: Jeri Rowland on 11-11-2024 Leukocyte esterase Test strip Ql (U) 500 /ul High Negative [facility] Urine pHOrdered By: Jeri Rowland on 11-11-2024 pH (U) 5.0 [pH] 5.0 - 8.[address] [facility] Urine protein measurement (m ass/volume)Ordered By: Jeri Rowland on 11-11-2024 Protein (U) [Mass/Vol] 89.5 mg/dL High 0.0-12.0 [facility] Urine protein/creatinine mas s ratioOrdered By: Jeri Rowland on 11-11-2024 Protein/Creatinine (U) [Mass ratio] 517 mg/g CRE High 0-[address] [facility] Urine sediment bacteria coun t by microscopy (number/high power field)Ordered By: Jeri Rowland on 11-11-2024 Bacteria LM.HPF (Urine sed) [#/Area] 3 /[HPF] None Seen [facility] Urine specific gravity measu rementOrdered By: Jeri Rowland on 11-11-2024 Specific gravity (U) [Rel density] 1.025 1.002-1.[address] [facility] Urine urobilinogen measureme ntOrdered By: Jeri Rowland on 11-11-2024 Urobilinogen Ql (U) 1 mg/dl High Normal [facility] White blood cell countOrdere d By: Wrangell Janett on 11-11-2024 White blood cell count 25-50 SEEN /hpf 0-[address] [facility] Basic Metabolic Profile (BMP )on 11-10-2024 BUN/CRE 23.8 RATIO High 10-[address] [facility] Comment on above: Performed By: #### L 100.0100, L500.2500, L500.4100 ####[facility] [address] [place], [address] Calcium [Mass/Vol] 9.8 mg/dL Normal 7.6-11.0 [facility] Comment on above: Performed By: #### L 100.0100, L500.2500, L500.4100 ####[facility] [address] [place], [address] Chloride [Moles/Vol] 99 mmol/L Normal 98-108 [place] Comment on above: Performed By: #### L 100.0100, L500.2500, L500.4100 ####[facility] [address] [place], [address] CO2 [Moles/Vol] 24.5 mmol/L Normal 21.0-32.[address] [facility] Comment on above: Performed By: #### L 100.0100, L500.2500, L500.4100 ####[facility] [address] [place], [address] Creatinine [Mass/Vol] 1.57 mg/dL High 0.70-1.20 [facility] Comment on above: Performed By: #### L 100.0100, L500.2500, L500.4100 ####[facility] [address] [place], [address] ECRCL 36.95 ml/min Low 50-[address] [facility] Comment on above: Performed By: #### L 100.0100, L500.2500, L500.4100 ####[facility] [address] [place], [address] GAP 17 High 5-[address] [facility] Comment on above: Performed By: #### L 100.0100, L500.2500, L500.4100 ####[facility] [address] [place], [address] GFR/1.73 sq M.predicted among non-blacks MDRD (S/P/Bld) [Vol rate/Area] 34 mL/min/{1.73_m2} Low >[address] [facility] Comment on above: Result Comment: mL/m in/1.73m2 CKD-EPI Creatinine Equation (2020) Performed By: #### L 100.0100, L500.2500, L500.4100 ####[facility] [address] [place], [address] Glucose [Mass/Vol] 116 mg/dL High 70-99 [facility] Comment on above: Performed By: #### L 100.0100, L500.2500, L500.4100 ####[facility] [address] [place], [address] Potassium [Moles/Vol] 3.6 mmol/L Normal 3.3-5.1 [facility] Comment on above: Performed By: #### L 100.0100, L500.2500, L500.4100 ####[facility] [address] [place], [address] Sodium [Moles/Vol] 141 mmol/L Normal 133-145 [facility] Comment on above: Performed By: #### L 100.0100, L500.2500, L500.4100 ####[facility] [address] [place], [address] Urea nitrogen [Mass/Vol] 37 mg/dL High 4-[address] [facility] Comment on above: Performed By: #### L 100.0100, L500.2500, L500.4100 ####[facility] [address] [place], [address] Bedside Glucoseon 11-10-2024 FINGERSTICK GLU 88 mg/dL Normal 74-[address] [facility] Comment on above: Result Comment: ASHU GEMENT OF PATIENT CARE PER NURSING PROTOCOL Performed By: #### L 501.080 ####[facility] [address] [place], [address] FINGERSTICK GLU 114 mg/dL High 74-[address] [facility] Comment on above: Result Comment: ASHU GEMENT OF PATIENT CARE PER NURSING PROTOCOL Performed By: #### L 501.080 ####[facility] [address] [place], [address] FINGERSTICK GLU 181 mg/dL High 74-[address] [facility] Comment on above: Result Comment: ASHU GEMENT OF PATIENT CARE PER NURSING PROTOCOL Performed By: #### L 501.080 ####[facility] [address] [place], [address] FINGERSTICK GLU 116 mg/dL High 74-[address] [facility] Comment on above: Result Comment: ASHU KELLY OF PATIENT CARE PER NURSING PROTOCOL Performed By: #### L 501.080 ####[facility] [address] [place], [address] CBC W/Diff, Automatedon 08-0 4-2024 Absolute Lymph 2.88 X10 3/uL Normal 0.83-4.[address] [facility] Comment on above: Performed By: #### L 100.0100, L500.2500, L500.4100 ####[facility] [address] [place], [address] Absolute Neut 6.9 X10 3/uL Normal 2.0-7.[address] [facility] Comment on above: Performed By: #### L 100.0100, L500.2500, L500.4100 ####[facility] [address] [place], [address] Basophils/100 WBC (Bld) 0.9 % Normal 0-[address] [facility] Comment on above: Performed By: #### L 100.0100, L500.2500, L500.4100 ####[facility] [address] [place], [address] Eosinophils/100 WBC (Bld) 0.8 % Normal 0-[address] [facility] Comment on above: Performed By: #### L 100.0100, L500.2500, L500.4100 ####[facility] [address] [place], [address] Erythrocyte distribution width (RBC) [Ratio] 16.8 % High 11.6-14.[address] [facility] Comment on above: Performed By: #### L 100.0100, L500.2500, L500.4100 ####[facility] [address] [place], [address] Hematocrit (Bld) [Volume fraction] 36.0 % Low 37-[address] [facility] Comment on above: Performed By: #### L 100.0100, L500.2500, L500.4100 ####[facility] [address] [place], [address] Hemoglobin (Bld) [Mass/Vol] 10.9 g/dL Low 12.0-15.[address] [facility] Comment on above: Performed By: #### L 100.0100, L500.2500, L500.4100 ####[facility] [address] [place], [address] IG% 0.500 Normal 0.0-0.[address] [facility] Comment on above: Result Comment: IG% - Immature Granulocytes (promyelocytes, myelocytes andmetamyelocytes) > 1% indicates that a LEFT SHIFT is Present. Performed By: #### L 100.0100, L500.2500, L500.4100 ####[facility] [address] [place], [address] Lymphocytes/100 WBC (Bld) 27.0 % Normal 19-[address] [facility] Comment on above: Performed By: #### L 100.0100, L500.2500, L500.4100 ####[facility] [address] [place], [address] MCH (RBC) [Entitic mass] 26.5 pg Low 27.0-32.[address] [facility] Comment on above: Performed By: #### L 100.0100, L500.2500, L500.4100 ####[facility] [address] [place], [address] MCHC (RBC) [Mass/Vol] 30.3 g/dL Low 32-36 [facility] Comment on above: Performed By: #### L 100.0100, L500.2500, L500.4100 ####[facility] [address] [place], [address] MCV (RBC) [Entitic vol] 87.4 fL Normal 81-[address] [facility] Comment on above: Performed By: #### L 100.0100, L500.2500, L500.4100 ####[facility] [address] [place], [address] Monocytes/100 WBC (Bld) 6.3 % Normal 0-[address] [facility] Comment on above: Performed By: #### L 100.0100, L500.2500, L500.4100 ####[facility] [address] [place], [address] Neutrophils/100 WBC (Bld) 64.5 % Normal 47-[address] [facility] Comment on above: Performed By: #### L 100.0100, L500.2500, L500.4100 ####[facility] [address] [place], [address] Nucleated RBC (Bld) [#/Vol] 0 10*3/uL Normal 0-[address] [facility] Comment on above: Performed By: #### L 100.0100, L500.2500, L500.4100 ####[facility] [facility] [address] [place], [address] Platelet mean volume (Bld) [Entitic vol] 9.8 fL Normal 6.2-12.[address] [facility] Comment on above: Performed By: #### L 100.0100, L500.2500, L500.4100 ####[facility] [address] [place], [address] Platelets (Bld) [#/Vol] 257 10*3/uL Normal 150-[address] [facility] Comment on above: Performed By: #### L 100.0100, L500.2500, L500.4100 ####[facility] [address] [place], [address] RBC (Bld) [#/Vol] 4.12 10*6/uL Low 4.2-5.4 [facility] Comment on above: Performed By: #### L 100.0100, L500.2500, L500.4100 ####[facility] [address] [place], [address] RDW SD 53.1 fl High 35.1-43.[address] [facility] Comment on above: Performed By: #### L 100.0100, L500.2500, L500.4100 ####[facility] [address] [place], [address] WBC (Bld) [#/Vol] 10.7 10*3/uL Normal 4.4-11.0 [facility] Comment on above: Performed By: #### L 100.0100, L500.2500, L500.4100 ####[facility] [address] [place], [address] Calculated very low density lipoprotein (VLDL) cholesterol measurementOrdered By: Emily Cummings on 11-10-2024 Calculated very low density lipoprotein (VLDL) cholesterol measurement 18 mg/dL 5-[address] [facility] LDL calc ser/plasOrdered By: Emily Cummings on 11-10-2024 Cholesterol in LDL [Mass/Vol] 80 mg/dL [facility] Comment on above: Cqpfeuhipx=172-864 m g/dL & Higher Jsdp=801 mg/dL or greaterFriedwald Equation for LDL-C Lipid Profileon 11-10-2024 CHOL:HDL 2.[address] [facility] Comment on above: Performed By: #### L 100.0100, L500.2500, L500.4100 ####[facility] [address] [place], [address] Cholesterol [Mass/Vol] 156 mg/dL Normal <=200 [facility] Comment on above: Result Comment: Chol esterol level, Desirable <200 mg/dLBorderline high cholesterol 200-239 mg/dLHigh cholesterol >=240 mg/dLRecommendations of the NCEP Adult Treatment Panel for thefollowing risk-cutoff thresholds for the [place] Americanpopulation. Performed By: #### L 100.0100, L500.2500, L500.4100 ####[facility] [address] [place], [address] Cholesterol in HDL [Mass/Vol] 58 mg/dL Normal [facility] Comment on above: Result Comment: Cyndi onal Cholesterol Education Program (NCEP) guidelines:<40 mg/dL: Low HDL-cholesterol (major risk factor for CHD)>= 60 mg/dL: High HDL-cholesterol (negative risk factor forCHD)HDL-cholesterol is affected by a number of factors, e.g.smoking, exercise, hormones, sex and age. Performed By: #### L 100.0100, L500.2500, L500.4100 ####[facility] [address] [place], [address] Cholesterol in LDL [Mass/Vol] 80 mg/dL Normal [facility] Comment on above: Result Comment: Bord frehec=526-010 mg/dL Higher Wibb=332 mg/dL or greaterFriedwald Equation for LDL-C Performed By: #### L 100.0100, L500.2500, L500.4100 ####[facility] [address] [place], [address] Cholesterol in VLDL [Mass/Vol] 18 mg/dL Normal 5-[address] [facility] Comment on above: Performed By: #### L 100.0100, L500.2500, L500.4100 ####[facility] [address] [place], [address] Triglyceride [Mass/Vol] 90 mg/dL Normal [facility] Comment on above: Result Comment: The drugs N-Acetylcysteine and Metamizole may falselydepress this assay.Normal range: <150 mg/dLBorderline High: 150-199 mg/dLHigh: 200-499 mg/dLVery High: >500 mg/dL Performed By: #### L 100.0100, L500.2500, L500.4100 ####[facility] [address] [place], [place], [address] Magnesiumon 11-10-2024 Magnesium [Mass/Vol] 2.1 mg/dL Normal 1.5-2.2 [place] Comment on above: Order Comment: Comme nts: Add onto previous labs if possible Performed By: #### L 501.5208 ####[facility] [address] [place], [address] Magnesium measurement (mass/ volume)Ordered By: Emily Cummings on 11-10-2024 Magnesium (Unsp spec) [Mass/Vol] 2.1 mg/dL 1.5-2.[address] [facility] Screening total cholesterol/ high density lipoprotein (HDL) cholesterol ratioOrdered By: Emily Cummings on 11-10-2024 Cholesterol.total/Chol esterol in HDL [Mass ratio] 2.69 {ratio} [facility] Serum or plasma cholesterol in HDL measurement (mass/volume)Ordered By: Emily Cummings on 11-10-2024 Cholesterol in HDL [Mass/Vol] 58 mg/dL >[address] [facility] Comment on above: National Cholesterol Education Program (NCEP) guidelines:<40 mg/dL: Low HDL-cholesterol (major risk factor for CHD)>= 60 mg/dL: High HDL-cholesterol (negative risk factor for CHD)HDL-cholesterol is affected by a number of factors, e.g. smoking, exercise, hormones, sex and age. Serum or plasma cholesterol measurement (mass/volume)Ordered By: Emily Cummings on 11-10-2024 Cholesterol [Mass/Vol] 156 mg/dL <201 [facility] Comment on above: Cholesterol level, D esirable <200 mg/dLBorderline high cholesterol 200-239 mg/dLHigh cholesterol >=240 mg/dLRecommendations of the NCEP Adult Treatment Panel for the following risk-cutoff thresholds for the [place] Malag[place] population. Triglycerides measurementOrd ered By: Emily Cummings on 08-04-2025 Triglyceride [Mass/Vol] 90 mg/dL <[address] [facility] Comment on above: The drugs N-Acetylcy steine and Metamizole may falsely depress this assay. Normal range: <150 mg/dLBorderline High: 150-199 mg/dLHigh: 200-499 mg/dLVery High: >500 mg/dL 12 Lead EKGon 11-09-2024 12 Lead EKG Normal [facility] Absolute lymphocyte countOrd ered By: Kenyon Shin on 11-09-2024 Lymphocytes Auto (Unsp spec) [#/Vol] 2.88 10*3/uL 0.83-4.[address] [facility] Absolute neutrophil countOrd ered By: Kenyon Shin on 11-09-2024 Neutrophils (Bld) [#/Vol] 5.1 10*3/uL 2.0-7.[address] [facility] Anion gap in Serum or Plasma Ordered By: Kenyon Shin on 11-09-2024 Anion gap [Moles/Vol] 15 mmol/L 5-15 [facility] Automated lymphocyte count a s percentage of total leukocytesOrdered By: Kenyon Shin on 11-09-2024 Lymphocytes/100 WBC Auto (Unsp spec) 32.8 % 19-[address] [facility] BUN/creatinine ratioOrdered By: Kenyon Shin on 11-09-2024 Urea nitrogen/Creatinine [Mass ratio] 22.7 mg/mg High 10-[address] [facility] Basic Metabolic Profile (BMP )on 11-09-2024 BUN/CRE 22.7 RATIO High [address] [facility] Comment on above: Performed By: #### L 100.0100, L500.2500, L503.7505 ####[facility] [address] [place], [address] Calcium [Mass/Vol] 9.1 mg/dL Normal 7.6-11.0 [facility] Comment on above: Performed By: #### L 100.0100, L500.2500, L503.7505 ####[facility] [address] [place], [address] Chloride [Moles/Vol] 99 mmol/L Normal 98-108 [place] Comment on above: Performed By: #### L 100.0100, L500.2500, L503.7505 ####[facility] [address] [place], [address] CO2 [Moles/Vol] 24.8 mmol/L Normal 21.0-32.[address] [facility] Comment on above: Performed By: #### L 100.0100, L500.2500, L503.7505 ####[facility] [address] [place], [address] Creatinine [Mass/Vol] 1.58 mg/dL High 0.70-1.20 [facility] Comment on above: Performed By: #### L 100.0100, L500.2500, L503.7505 ####[facility] [address] [place], [address] ECRCL 38.00 ml/min Low 50-[address] [facility] Comment on above: Performed By: #### L 100.0100, L500.2500, L503.7505 ####[facility] [address] [place], [address] GAP 15 Normal 5-[address] [facility] Comment on above: Performed By: #### L 100.0100, L500.2500, L503.7505 ####[facility] [address] [place], [address] GFR/1.73 sq M.predicted among non-blacks MDRD (S/P/Bld) [Vol rate/Area] 34 mL/min/{1.73_m2} Low >[address] [facility] Comment on above: Result Comment: mL/m in/1.73m2 CKD-EPI Creatinine Equation (2020) Performed By: #### L 100.0100, L500.2500, L503.7505 ####[facility] [address] [place], [address] Glucose [Mass/Vol] 133 mg/dL High 70-99 [facility] Comment on above: Performed By: #### L 100.0100, L500.2500, L503.7505 ####[facility] [address] [place], [address] Potassium [Moles/Vol] 4.5 mmol/L Normal 3.3-5.1 [facility] Comment on above: Result Comment: Hemo lysis present, Results??could be affected.?? Performed By: #### L 100.0100, L500.2500, L503.7505 ####[facility] [address] [place], [address] Sodium [Moles/Vol] 138 mmol/L Normal 133-145 [facility] Comment on above: Performed By: #### L 100.0100, L500.2500, L503.7505 ####[facility] [address] [place], [address] Urea nitrogen [Mass/Vol] 36 mg/dL High 4-[address] [facility] Comment on above: Performed By: #### L 100.0100, L500.2500, L503.7505 ####[facility] [address] [place], [address] Basophil percentageOrdered B y: Kenyon Le on 11-09-2024 Basophils/100 WBC (Bld) 0.8 % 0-[address] [facility] Bedside Glucoseon 11-09-2024 FINGERSTICK GLU 126 mg/dL High 74-[address] [facility] Comment on above: Result Comment: ASHU GEMENT OF PATIENT CARE PER NURSING PROTOCOL Performed By: #### L 501.080 ####[facility] [address] [place], [address] FINGERSTICK GLU 128 mg/dL High 74-[address] [facility] Comment on above: Result Comment: ASHU GEMENT OF PATIENT CARE PER NURSING PROTOCOL Performed By: #### L 501.080 ####[facility] [address] [place], [address] FINGERSTICK GLU 152 mg/dL High 74-[address] [facility] Comment on above: Result Comment: ASHU KELLY OF PATIENT CARE PER NURSING PROTOCOL Performed By: #### L 501.080 ####[facility] [address] [place], [address] CBC W/Diff, Automatedon 08-0 -2024 Absolute Lymph 2.88 X10 3/uL Normal 0.83-4.[address] [facility] Comment on above: Performed By: #### L 100.0100, L500.2500, L503.7505 ####[facility] [address] [place], [address] Absolute Neut 5.1 X10 3/uL Normal 2.0-7.[address] [facility] Comment on above: Performed By: #### L 100.0100, L500.2500, L503.7505 ####[facility] [address] [place], [address] Basophils/100 WBC (Bld) 0.8 % Normal 0-[address] [facility] Comment on above: Performed By: #### L 100.0100, L500.2500, L503.7505 ####[facility] [address] [place], [address] Eosinophils/100 WBC (Bld) 1.6 % Normal 0-[address] [facility] Comment on above: Performed By: #### L 100.0100, L500.2500, L503.7505 ####[facility] [address] [place], [address] Erythrocyte distribution width (RBC) [Ratio] 16.7 % High 11.6-14.[address] [facility] Comment on above: Performed By: #### L 100.0100, L500.2500, L503.7505 ####[facility] [address] [place], [address] Hematocrit (Bld) [Volume fraction] 34.2 % Low 37-[address] [facility] Comment on above: Performed By: #### L 100.0100, L500.2500, L503.7505 ####[facility] [address] [place], [address] Hemoglobin (Bld) [Mass/Vol] 10.5 g/dL Low 12.0-15.[address] [facility] Comment on above: Performed By: #### L 100.0100, L500.2500, L503.7505 ####[facility] [address] [place], [address] IG% 0.500 Normal 0.0-0.[address] [facility] Comment on above: Result Comment: IG% - Immature Granulocytes (promyelocytes, myelocytes andmetamyelocytes) > 1% indicates that a LEFT SHIFT is Present. Performed By: #### L 100.0100, L500.2500, L503.7505 ####[facility] [address] [place], [address] Lymphocytes/100 WBC (Bld) 32.8 % Normal 19-[address] [facility] Comment on above: Performed By: #### L 100.0100, L500.2500, L503.7505 ####[facility] [address] [place], [address] MCH (RBC) [Entitic mass] 26.7 pg Low 27.0-32.[address] [facility] Comment on above: Performed By: #### L 100.0100, L500.2500, L503.7505 ####[facility] [address] [place], [address] MCHC (RBC) [Mass/Vol] 30.7 g/dL Low 32-36 [facility] Comment on above: Performed By: #### L 100.0100, L500.2500, L503.7505 ####[facility] [address] [place], [address] MCV (RBC) [Entitic vol] 87.0 fL Normal 81-[address] [facility] Comment on above: Performed By: #### L 100.0100, L500.2500, L503.7505 ####[facility] [address] [place], [address] Monocytes/100 WBC (Bld) 6.5 % Normal 0-[address] [facility] Comment on above: Performed By: #### L 100.0100, L500.2500, L503.7505 ####[facility] [address] [place], [address] Neutrophils/100 WBC (Bld) 57.8 % Normal 47-[address] [facility] Comment on above: Performed By: #### L 100.0100, L500.2500, L503.7505 ####[facility] [address] [place], [address] Nucleated RBC (Bld) [#/Vol] 0 10*3/uL Normal 0-[address] [facility] Comment on above: Performed By: #### L 100.0100, L500.2500, L503.7505 ####[facility] [address] [place], [address] Platelet mean volume (Bld) [Entitic vol] 10.5 fL Normal 6.2-12.[address] [facility] Comment on above: Performed By: #### L 100.0100, L500.2500, L503.7505 ####[facility] [address] [place], [address] Platelets (Bld) [#/Vol] 292 10*3/uL Normal 150-[address] [facility] Comment on above: Performed By: #### L 100.0100, L500.2500, L503.7505 ####[facility] [address] [place], [address] RBC (Bld) [#/Vol] 3.93 10*6/uL Low 4.2-5.4 [facility] Comment on above: Performed By: #### L 100.0100, L500.2500, L503.7505 ####[facility] [address] [place], [address] RDW SD 53.2 fl High 35.1-43.[address] [facility] Comment on above: Performed By: #### L 100.0100, L500.2500, L503.7505 ####[facility] [address] [place], [address] WBC (Bld) [#/Vol] 8.8 10*3/uL Normal 4.4-11.0 [facility] Comment on above: Performed By: #### L 100.0100, L500.2500, L503.7505 ####[facility] [address] [place], [address] Carbon dioxide, total [Moles /volume] in Central venous bloodOrdered By: Kenyon Shin on 11-09-2024 CO2 [Moles/Vol] 24.8 mmol/L 21.0-32.[address] [facility] Chest 1 View (Portable)on Chest 1 View (Portable) Normal [facility] Chloride assayOrdered By: Sagar Shin on 11-09-2024 Chloride [Moles/Vol] 99 mmol/L 98-108 [facility] Summary on 11-09-2024 Emergency Department Summary Normal [facility] Eosinophil percentageOrdered By: Kenyon Shin on 11-09-2024 Eosinophils/100 WBC (Bld) 1.6 % 0-[address] [facility] Erythrocyte distribution wid th ratioOrdered By: Kenyon Shin on 11-09-2024 Erythrocyte distribution width (RBC) [Ratio] 16.7 % High 11.6-14.[address] [facility] Erythrocyte distribution wid th standard deviationOrdered By: Kenyon Shin on 11-09-2024 Erythrocyte distribution width (RBC) [Ratio] 53.2 fl High 35.1-43.[address] [facility] Glomerular filtration rate ( GFR) estimation/1.73 sq m using serum, plasma, or whole bOrdered By: Kenyon Shin on 11-09-2024 GFR/1.73 sq M.predicted among non-blacks MDRD (S/P/Bld) [Vol rate/Area] 34 mL/min/{1.73_m2} Low >[address] [facility] Comment on above: mL/min/1.73m2 CKD-EP I Creatinine Equation (2020) H AND P Exam - [facility] 11-09-2024 H&P Exam - Hospitalist Normal [facility] Hematocrit Auto (Bld) [Volum e fraction]Ordered By: Kenyon Shin on 11-09-2024 Hematocrit (Bld) [Volume fraction] 34.2 % Low 37-[address] [facility] Hemoglobin measurementOrdere d By: Kenyon Shin on 11-09-2024 Hemoglobin (Bld) [Mass/Vol] 10.5 g/dL Low 12.0-15.[address] [facility] Immature granulocytes/100 WB C Auto (Bld)Ordered By: Kenyon Shin on 11-09-2024 Immature granulocytes/100 WBC (Bld) 0.500 % 0.0-0.[address] [facility] Comment on above: IG% - Immature Granu locytes (promyelocytes, myelocytes and metamyelocytes) > 1% indicates that a LEFT SHIFT is Present. MCV (mean corpuscular volume ) determinationOrdered By: Kenyon Shin on 11-09-2024 MCV (RBC) [Entitic vol] 87.0 fL 81-[address] [facility] Mean corpuscular hemoglobin (MCH) determinationOrdered By: Kenyon Shin on 11-09-2024 MCH (RBC) [Entitic mass] 26.7 pg Low 27.0-32.[address] [facility] Mean corpuscular hemoglobin concentration (MCHC) determinationOrdered By: Kenyon Shin on 11-09-2024 MCHC (RBC) [Mass/Vol] 30.7 g/dL Low 32-36 [facility] Mean platelet volume determi nationOrdered By: Kenyon Shin on 11-09-2024 Platelet mean volume (Bld) [Entitic vol] 10.5 fL 6.2-12.[address] [facility] Monocyte percentageOrdered B y: Kenyon Shin on 11-09-2024 Monocytes/100 WBC (Bld) 6.5 % 0-[address] [facility] Natriuretic peptide.B prohor diane N-Terminal [Mass/volume] in Serum or PlasmaOrdered By: Kenyon Shin on 11-09-2024 Natriuretic peptide.B prohormone N-Terminal [Mass/Vol] 65386 pg/mL High <[address] [facility] Comment on above: Heart Failure Unlike ly: < 300 pg/mLHeart Failure Likely< 50 Years: > 450 pg/mL50-75 Years: > 900 pg/mL>75 Years: > 1800 pg/mL Neutrophil percentageOrdered By: Kenyon Shin on 11-09-2024 Neutrophils/100 WBC (Bld) 57.8 % 47-[address] [facility] Nucleated red blood cell per centageOrdered By: Kenyon Shin on 11-09-2024 Nucleated RBC/100 WBC (Bld) [Ratio] 0 % 0-[address] [facility] Platelet countOrdered By: Sagar Shin on 11-09-2024 Platelets (Bld) [#/Vol] 292 10*3/uL 150-[address] [facility] Potassium measurement (mass/ volume)Ordered By: Kenyon Shin on 11-09-2024 Potassium (Unsp spec) [Mass/Vol] 4.5 mmol/L 3.3-5.[address] [facility] Comment on above: Hemolysis present, R esults could be affected. Pro- Brain NATRIURETIC PEPTI Larry 11-09-2024 Natriuretic peptide B (Bld) [Mass/Vol] 15185 pg/mL High <=[address] [facility] Comment on above: Result Comment: Hear t Failure Unlikely: < 300 pg/mLHeart Failure Likely< 50 Years: > 450 pg/mL50-75 Years: > 900 pg/mL>75 Years: > 1800 pg/mL Performed By: #### L 100.0100, L500.2500, L503.7505 ####[facility] [address] [place], [place], [address] RBC Auto (Bld) [#/Vol]Ordere d By: Kenyon Shin on 11-09-2024 RBC (Bld) [#/Vol] 3.93 10*6/uL Low 4.2-5.4 [facility] Serum creatinine measurement (mass/volume)Ordered By: Kenyon Shin on 11-09-2024 Creatinine [Mass/Vol] 1.58 mg/dL High 0.70-1.20 [facility] Serum glucose measurement (m ass/volume)Ordered By: Kenyon Shin on 11-09-2024 Glucose [Mass/Vol] 133 mg/dL High 70-99 [facility] Serum or plasma calcium kay urement (mass/volume)Ordered By: Kenyon Shin on 11-09-2024 Calcium [Mass/Vol] 9.1 mg/dL 7.6-11.0 [facility] Serum or plasma urea nitroge n measurement (mass/volume)Ordered By: Kenyon Shin on 11-09-2024 Urea nitrogen [Mass/Vol] 36 mg/dL High 4-[address] [facility] Sodium levelOrdered By: Kenyon Shin on 11-09-2024 Sodium [Moles/Vol] 138 mmol/L 133-145 [facility] White blood cell (WBC) count Ordered By: Kenyon Shin on 11-09-2024 WBC (Bld) [#/Vol] 8.8 10*3/uL 4.4-11.0 [facility] Bedside Glucoseon 10-28-2024 FINGERSTICK GLU 114 mg/dL High 74-[address] [facility] Comment on above: Result Comment: ASHU KELLY OF PATIENT CARE PER NURSING PROTOCOL Performed By: #### L 501.080 ####[facility] [address] [place], [place], [address] EGD Reporton 10-28-2024 EGD Report Normal [facility] deOrdered By: Jacinto Munoz on 10-28-2024 Glucose [Mass/Vol] 114 mg/dL High 74-106 [facility] Comment on above: MANAGEMENT OF PATIEN T CARE PER NURSING PROTOCOL Immunohistochemical Stainson 10-28-2024 Immunohistochemical Stains Normal [facility] Comment on above: Performed By: #### P IMHI ####[facility] [address] [place], [address] MR/POSTOP.ANEon 10-28-2024 MR/POSTOP.ANE Normal [facility] MR/BUEDEIUC4dz 10-28-2024 MR/POSTOPAN2 Normal [facility] MR/PAT.ANEon 10-21-2024 MR/PAT.ANE Normal [facility] Cardiology Visit Reporton Cardiology Visit Report Normal [facility] CNPNon 09-19-2024 CNPN Telephone (AGCARDPOB ) -------- DARYN GUILLERMO ([id number]) 1945 F Date Time Provider Department 09/19/24 LAURENT JURADO AGCKALEYPOB During your visit today, we recorded the following information about you: Laurent Jurado, VISCERA WASHER.LINEN ROOM SUPERVISOR 09/19/2024 3:31 PM Signed T[facility] clinic referral received from Dr. Milo Mendoza. Chart reviewed, scanned records and imaging appreciated. 78 yo female with PMHx that includes HFrEF, a fib (previously on xarelto), DM, renal disease, anemia, anxiety/depression, OM, OA, GIB, PUD, COPD. Resides at [facility] since 6 months ago. Wheelchair bound, does stand for brief transfers with assist. Notes she gave up will to live about 5 years ago due to frustrations with family situations, and just had gradual debilitation. 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 Of note rivaraxoban was stopped prior due [...] 40? 1+ AI EF 40-45% Laurent Jurado APRN.LINEN ROOM SUPERVISOR Allergies As of Date: 09/19/2024 (Not on File) Date Reviewed: Never Reviewed Problem List As Of Date: 09/19/2024 (None) Encounter Status:Closed by LAURENT JURADO on 09/19/24 [facility] CNPN Telephone (AGCARDPOB ) -------- DARYN GUILLERMO ([id number]) 1945 F Date Time Provider Department 09/19/24 LAURENT JURADO AGCARDPOB During your visit today, we recorded the following information about you: Laurent Jurado APRN.LINEN ROOM SUPERVISOR 09/19/2024 3:31 PM Signed TAVR clinic referral received from Dr. Milo Mendoza. Chart reviewed, scanned records and imaging appreciated. 78 yo female with PMHx that includes HFrEF, a fib (previously on xarelto), DM, renal disease, anemia, anxiety/depression, OM, OA, GIB, PUD, COPD. Resides at [facility] since 6 months ago. Wheelchair bound, does stand for brief transfers with assist. Notes she gave up will to live about 5 years ago due to frustrations with family situations, and just had gradual debilitation. 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 Of note rivaraxoban was stopped prior due [...] 40? 1+ AI EF 40-45% Laurent Jurado APRN.LINEN ROOM SUPERVISOR Gamaliel Hess MA 09/19/2024 4:07 PM Signed Spoke with nurse at [facility] [phone], [address]. They're unable to arrange transportation for 09/24/24 office visit and reschedule to 11/12/24 10:30am. I faxed appt reminder with our address on it to [phone]. Allergies As of Date: 09/19/2024 (Not on File) Date Reviewed: Never Reviewed Problem List As Of Date: 09/19/2024 (None) Encounter Status:Closed by LAURENT JURADO on 09/19/24 [facility] Andreina 09-17-2024 [place] Telephone (AGVASACC) -------- DARYN GUILLERMO ([id number]) 1945 F Date Time Provider Department 09/17/24 LAURENT JURADO During your visit today, we recorded the following information about you: Pearl Dutta 09/17/2024 3:50 PM Signed Referral received and scanned to chart. Fax request was sent to [facility] requesting images and reports. A message was also sent to Laurent Jurado CNP in regards to the referral. Non-rheumatic aortic valve stenosis (possible TAVR candidate). Allergies As of Date: 09/17/2024 (Not on File) Date Reviewed: Never Reviewed Reason for Visit: Appointment [186] Cmt: Appointment Problem List As Of Date: 09/17/2024 (None) Encounter Status:Closed by PEARL DUTTA on 09/17/24 [facility] CNPN Telephone (AGKontagentACC) -------- DARYN GUILLERMO ([id number]) 1945 F Date Time Provider Department 09/17/24 LAURENT JURADO AGJERMAIN During your visit today, we recorded the following information about you: Pearl Dutta 09/17/2024 3:50 PM Signed Referral received and scanned to chart. Fax request was sent to [facility] requesting images and reports. A message [...] Status:Closed by PEARL DUTTA on 09/17/24 Normal [facility] Anion gap in Serum or Plasma Ordered By: Delgado Amaro on 09-16-2024 Anion gap [Moles/Vol] 12 mmol/L -15 [facility] BUN/creatinine ratioOrdered By: Delgado Amaro on 09-16-2024 Urea nitrogen/Creatinine [Mass ratio] 23.1 mg/mg High 01-[address] [facility] Basic Metabolic Profile (BMP )on 09-16-2024 BUN/CRE 23.1 RATIO High 01-[address] [facility] Comment on above: Order Comment: 503.2 Performed By: #### L 100.0500, L500.2500 ####[facility] [address] [place], [address] Calcium [Mass/Vol] 9.1 mg/dL Normal 7.6-11.0 [facility] Comment on above: Order Comment: 503.2 Performed By: #### L 100.0500, L500.2500 ####[facility] [address] [place], [address] Chloride [Moles/Vol] 99 mmol/L Normal 98-108 [place] Comment on above: Order Comment: 503.2 Performed By: #### L 100.0500, L500.2500 ####[facility] [address] [place], [address] CO2 [Moles/Vol] 27.1 mmol/L Normal 21.0-32.[address] [facility] Comment on above: Order Comment: 503.2 Performed By: #### L 100.0500, L500.2500 ####[facility] [address] [place], [address] Creatinine [Mass/Vol] 1.19 mg/dL Normal 0.70-1.20 [facility] Comment on above: Order Comment: 503.2 Performed By: #### L 100.0500, L500.2500 ####[facility] [address] [place], [address] GAP 12 Normal 5-[address] [facility] Comment on above: Order Comment: 503.2 Performed By: #### L 100.0500, L500.2500 ####[facility] [address] [place], [address] GFR/1.73 sq M.predicted among non-blacks MDRD (S/P/Bld) [Vol rate/Area] 47 mL/min/{1.73_m2} Low >[address] [facility] Comment on above: Order Comment: 503.2 Result Comment: mL/m in/1.73m2 CKD-EPI Creatinine Equation (2020) Performed By: #### L 100.0500, L500.2500 ####[facility] [address] [place], [address] Glucose [Mass/Vol] 98 mg/dL Normal 70-99 [facility] Comment on above: Order Comment: 503.2 Performed By: #### L 100.0500, L500.2500 ####[facility] [address] [place], [address] Potassium [Moles/Vol] 4.3 mmol/L Normal 3.3-5.1 [facility] Comment on above: Order Comment: 503.2 Performed By: #### L 100.0500, L500.2500 ####[facility] [address] [place], [address] Sodium [Moles/Vol] 138 mmol/L Normal 133-145 [facility] Comment on above: Order Comment: 503.2 Performed By: #### L 100.0500, L500.2500 ####[facility] [address] [place], [address] Urea nitrogen [Mass/Vol] 28 mg/dL High 4-[address] [facility] Comment on above: Order Comment: 503.2 Performed By: #### L 100.0500, L500.2500 ####[facility] [address] [place], [address] CBC-Complete Blood Cnt No Di ffon 09-16-2024 Erythrocyte distribution width (RBC) [Ratio] 15.1 % High 11.6-14.[address] [facility] Comment on above: Order Comment: 503.2 Performed By: #### L 100.0500, L500.2500 ####[facility] [address] [place], [address] Hematocrit (Bld) [Volume fraction] 30.9 % Low 37-[address] [facility] Comment on above: Order Comment: 503.2 Performed By: #### L 100.0500, L500.2500 ####[facility] [address] [place], [address] Hemoglobin (Bld) [Mass/Vol] 9.4 g/dL Low 12.0-15.[address] [facility] Comment on above: Order Comment: 503.2 Performed By: #### L 100.0500, L500.2500 ####[facility] [address] [place], [address] MCH (RBC) [Entitic mass] 26.4 pg Low 27.0-32.[address] [facility] Comment on above: Order Comment: 503.2 Performed By: #### L 100.0500, L500.2500 ####[facility] [address] [place], [address] MCHC (RBC) [Mass/Vol] 30.4 g/dL Low 32-36 [facility] Comment on above: Order Comment: 503.2 Performed By: #### L 100.0500, L500.2500 ####[facility] [address] [place], [address] MCV (RBC) [Entitic vol] 86.8 fL Normal 81-[address] [facility] Comment on above: Order Comment: 503.2 Performed By: #### L 100.0500, L500.2500 ####[facility] [address] [place], [address] Platelet mean volume (Bld) [Entitic vol] 9.7 fL Normal 6.2-12.[address] [facility] Comment on above: Order Comment: 503.2 Performed By: #### L 100.0500, L500.2500 ####[facility] [address] [place], [address] Platelets (Bld) [#/Vol] 203 10*3/uL Normal 150-[address] [facility] Comment on above: Order Comment: 503.2 Performed By: #### L 100.0500, L500.2500 ####[facility] [address] [place], [address] RBC (Bld) [#/Vol] 3.56 10*6/uL Low 4.2-5.4 [facility] Comment on above: Order Comment: 503.2 Performed By: #### L 100.0500, L500.2500 ####[facility] [address] [place], [address] RDW SD 48.3 fl High 35.1-43.[address] [facility] Comment on above: Order Comment: 503.2 Performed By: #### L 100.0500, L500.2500 ####[facility] [address] [place], [address] WBC (Bld) [#/Vol] 7.6 10*3/uL Normal 4.4-11.0 [facility] Comment on above: Order Comment: 503.2 Performed By: #### L 100.0500, L500.2500 ####[facility] [address] [place], [address] Carbon dioxide, total [Moles /volume] in Central venous bloodOrdered By: Delgado Amaro on 09-16-2024 CO2 [Moles/Vol] 27.1 mmol/L 21.0-32.[address] [facility] Chloride assayOrdered By: Kade Amaro on 09-16-2024 Chloride [Moles/Vol] 99 mmol/L 98-108 [place] Erythrocyte distribution wid th ratioOrdered By: Delgado Amaro on 09-16-2024 Erythrocyte distribution width (RBC) [Ratio] 15.1 % High 11.6-14.[address] [facility] Erythrocyte distribution wid th standard deviationOrdered By: Delgado Amaro on 09-16-2024 Erythrocyte distribution width (RBC) [Ratio] 48.3 fl High 35.1-43.[address] [facility] Glomerular filtration rate ( GFR) estimation/1.73 sq m using serum, plasma, or whole bOrdered By: Delgado Amaro on 09-16-2024 GFR/1.73 sq M.predicted among non-blacks MDRD (S/P/Bld) [Vol rate/Area] 47 mL/min/{1.73_m2} Low >[address] [facility] Comment on above: mL/min/1.73m2 CKD-EP I Creatinine Equation (2020) Hematocrit Auto (Bld) [Volum e fraction]Ordered By: Delgado Amaro on 09-16-2024 Hematocrit (Bld) [Volume fraction] 30.9 % Low 37-[address] [facility] Hemoglobin measurementOrdere d By: Delgado Amaro on 09-16-2024 Hemoglobin (Bld) [Mass/Vol] 9.4 g/dL Low 12.0-15.[address] [facility] MCV (mean corpuscular volume ) determinationOrdered By: Delgado Amaro on 09-16-2024 MCV (RBC) [Entitic vol] 86.8 fL 81-[address] [facility] Mean corpuscular hemoglobin (MCH) determinationOrdered By: Delgado Amaro on 09-16-2024 MCH (RBC) [Entitic mass] 26.4 pg Low 27.0-32.[address] [facility] Mean corpuscular hemoglobin concentration (MCHC) determinationOrdered By: Delgado Amaro on 09-16-2024 MCHC (RBC) [Mass/Vol] 30.4 g/dL Low 32-36 [facility] Mean platelet volume determi nationOrdered By: Delgado Amaro on 09-16-2024 Platelet mean volume (Bld) [Entitic vol] 9.7 fL 6.2-12.[address] [facility] Platelet countOrdered By: Kade Amaro on 09-16-2024 Platelets (Bld) [#/Vol] 203 10*3/uL 150-[address] [facility] Potassium measurement (mass/ volume)Ordered By: Delgado Amaro on 09-16-2024 Potassium (Unsp spec) [Mass/Vol] 4.3 mmol/L 3.3-5.[address] [facility] RBC Auto (Bld) [#/Vol]Ordere d By: Delgado Amaro on 09-16-2024 RBC (Bld) [#/Vol] 3.56 10*6/uL Low 4.2-5.4 [facility] Serum creatinine measurement (mass/volume)Ordered By: Delgado Amaro on 09-16-2024 Creatinine [Mass/Vol] 1.19 mg/dL 0.70-1.20 [facility] Serum glucose measurement (m ass/volume)Ordered By: Delgado Amaro on 09-16-2024 Glucose [Mass/Vol] 98 mg/dL 70-99 [facility] Serum or plasma calcium kay urement (mass/volume)Ordered By: Delgado Amaro on 09-16-2024 Calcium [Mass/Vol] 9.1 mg/dL 7.6-11.0 [facility] Serum or plasma urea nitroge n measurement (mass/volume)Ordered By: Delgado Amaro on 09-16-2024 Urea nitrogen [Mass/Vol] 28 mg/dL High 4-[address] [facility] Sodium levelOrdered By: Dimitry Amaro on 09-16-2024 Sodium [Moles/Vol] 138 mmol/L 133-145 [facility] White blood cell (WBC) count Ordered By: Delgado Amaro on 09-16-2024 WBC (Bld) [#/Vol] 7.6 10*3/uL 4.4-11.0 [facility] Anion gap in Serum or Plasma Ordered By: Delgado Amaro on 08-19-2024 Anion gap [Moles/Vol] 10 mmol/L 5- [facility] BUN/creatinine ratioOrdered By: Delgado Amaro on 08-19-2024 Urea nitrogen/Creatinine [Mass ratio] 19.0 mg/mg - [facility] Basic Metabolic Profile (BMP )on 08-19-2024 BUN/CRE 19.0 RATIO Normal - [facility] Comment on above: Order Comment: 503.2 Performed By: #### L 100.0500, L500.2500 ####[facility] [address] [place], [address] Calcium [Mass/Vol] 9.7 mg/dL Normal 7.6-11.0 [facility] Comment on above: Order Comment: 503.2 Performed By: #### L 100.0500, L500.2500 ####[facility] [address] [place], [address] Chloride [Moles/Vol] 100 mmol/L Normal 98-108 [place] Comment on above: Order Comment: 503.2 Performed By: #### L 100.0500, L500.2500 ####[facility] [address] [place], [address] CO2 [Moles/Vol] 27.5 mmol/L Normal 21.0-32.[address] [facility] Comment on above: Order Comment: 503.2 Performed By: #### L 100.0500, L500.2500 ####[facility] [address] [place], [address] Creatinine [Mass/Vol] 1.15 mg/dL Normal 0.70-1.20 [facility] Comment on above: Order Comment: 503.2 Performed By: #### L 100.0500, L500.2500 ####[facility] [address] [place], [address] GAP 10 Normal - [facility] Comment on above: Order Comment: 503.2 Performed By: #### L 100.0500, L500.2500 ####[facility] [address] [place], [address] GFR/1.73 sq M.predicted among non-blacks MDRD (S/P/Bld) [Vol rate/Area] 49 mL/min/{1.73_m2} Low >[address] [facility] Comment on above: Order Comment: 503.2 Result Comment: mL/m in/1.73m2 CKD-EPI Creatinine Equation (2020) Performed By: #### L 100.0500, L500.2500 ####[facility] [address] [place], [address] Glucose [Mass/Vol] 101 mg/dL High 70-99 [facility] Comment on above: Order Comment: 503.2 Performed By: #### L 100.0500, L500.2500 ####[facility] [address] [place], [address] Potassium [Moles/Vol] 4.4 mmol/L Normal 3.3-5.1 [facility] Comment on above: Order Comment: 503.2 Result Comment: Hemo lysis present, Results??could be affected.?? Performed By: #### L 100.0500, L500.2500 ####[facility] [address] [place], [address] Sodium [Moles/Vol] 138 mmol/L Normal 133-145 [facility] Comment on above: Order Comment: 503.2 Performed By: #### L 100.0500, L500.2500 ####[facility] [address] [place], [address] Urea nitrogen [Mass/Vol] 22 mg/dL High 4-[address] [facility] Comment on above: Order Comment: 503.2 Performed By: #### L 100.0500, L500.2500 ####[facility] [address] [place], [address] CBC-Complete Blood Cnt No Steve lott 08-19-2024 Erythrocyte distribution width (RBC) [Ratio] 15.9 % High 11.6-14.[address] [facility] Comment on above: Order Comment: 503.2 Performed By: #### L 100.0500, L500.2500 ####[facility] [address] [place], [address] Hematocrit (Bld) [Volume fraction] 35.6 % Low 37-[address] [facility] Comment on above: Order Comment: 503.2 Performed By: #### L 100.0500, L500.2500 ####[facility] [address] [place], [address] Hemoglobin (Bld) [Mass/Vol] 11.6 g/dL Low 12.0-15.[address] [facility] Comment on above: Order Comment: 503.2 Performed By: #### L 100.0500, L500.2500 ####[facility] [address] [place], [address] MCH (RBC) [Entitic mass] 28.4 pg Normal 27.0-32.[address] [facility] Comment on above: Order Comment: 503.2 Performed By: #### L 100.0500, L500.2500 ####[facility] [address] [place], [address] MCHC (RBC) [Mass/Vol] 32.6 g/dL Normal 32-36 [facility] Comment on above: Order Comment: 503.2 Performed By: #### L 100.0500, L500.2500 ####[facility] [address] [place], [address] MCV (RBC) [Entitic vol] 87.0 fL Normal 81-[address] [facility] Comment on above: Order Comment: 503.2 Performed By: #### L 100.0500, L500.2500 ####[facility] [address] [place], [address] Platelet mean volume (Bld) [Entitic vol] 9.5 fL Normal 6.2-12.[address] [facility] Comment on above: Order Comment: 503.2 Performed By: #### L 100.0500, L500.2500 ####[facility] [address] [place], [address] Platelets (Bld) [#/Vol] 180 10*3/uL Normal 150-[address] [facility] Comment on above: Order Comment: 503.2 Performed By: #### L 100.0500, L500.2500 ####[facility] [address] [place], [address] RBC (Bld) [#/Vol] 4.09 10*6/uL Low 4.2-5.4 [facility] Comment on above: Order Comment: 503.2 Performed By: #### L 100.0500, L500.2500 ####[facility] [address] [place], [address] RDW SD 50.2 fl High 35.1-43.[address] [facility] Comment on above: Order Comment: 503.2 Performed By: #### L 100.0500, L500.2500 ####[facility] [address] [place], [address] WBC (Bld) [#/Vol] 6.4 10*3/uL Normal 4.4-11.0 [facility] Comment on above: Order Comment: 503.2 Performed By: #### L 100.0500, L500.2500 ####[facility] [address] [place], [address] Carbon dioxide, total [Moles /volume] in Central venous bloodOrdered By: Delgado Amaro on 08-19-2024 CO2 [Moles/Vol] 27.5 mmol/L 21.0-32.[address] [facility] Chloride assayOrdered By: Kade Amaro on 08-19-2024 Chloride [Moles/Vol] 100 mmol/L 98-108 [place] Erythrocyte distribution wid th ratioOrdered By: Delgado Amaro on 08-19-2024 Erythrocyte distribution width (RBC) [Ratio] 15.9 % High 11.6-14.[address] [facility] Erythrocyte distribution wid th standard deviationOrdered By: Delgado Amaro on 08-19-2024 Erythrocyte distribution width (RBC) [Ratio] 50.2 fl High 35.1-43.[address] [facility] Glomerular filtration rate ( GFR) estimation/1.73 sq m using serum, plasma, or whole bOrdered By: Delgado Amaro on 08-19-2024 GFR/1.73 sq M.predicted among non-blacks MDRD (S/P/Bld) [Vol rate/Area] 49 mL/min/{1.73_m2} Low >[address] [facility] Comment on above: mL/min/1.73m2 CKD-EP I Creatinine Equation (2020) Hematocrit Auto (Bld) [Volum e fraction]Ordered By: Delgado Amaro on 08-19-2024 Hematocrit (Bld) [Volume fraction] 35.6 % Low 37-[address] [facility] Hemoglobin measurementOrdere d By: Delgado Amaro on 08-19-2024 Hemoglobin (Bld) [Mass/Vol] 11.6 g/dL Low 12.0-15.[address] [facility] MCV (mean corpuscular volume ) determinationOrdered By: Delgado Amaro on 08-19-2024 MCV (RBC) [Entitic vol] 87.0 fL 81-[address] [facility] Mean corpuscular hemoglobin (MCH) determinationOrdered By: Delgado Amaro on 08-19-2024 MCH (RBC) [Entitic mass] 28.4 pg 27.0-32.[address] [facility] Mean corpuscular hemoglobin concentration (MCHC) determinationOrdered By: Delgado Amaro on 08-19-2024 MCHC (RBC) [Mass/Vol] 32.6 g/dL 32-36 [facility] Mean platelet volume determi nationOrdered By: Delgado Amaro on 08-19-2024 Platelet mean volume (Bld) [Entitic vol] 9.5 fL 6.2-12.[address] [facility] Platelet countOrdered By: Kade Amaro on 08-19-2024 Platelets (Bld) [#/Vol] 180 10*3/uL 150-[address] [facility] Potassium measurement (mass/ volume)Ordered By: Delgado Amaro on 08-19-2024 Potassium (Unsp spec) [Mass/Vol] 4.4 mmol/L 3.3-5.[address] [facility] Comment on above: Hemolysis present, R esults could be affected. RBC Auto (Bld) [#/Vol]Ordere d By: Delgado Amaro on 08-19-2024 RBC (Bld) [#/Vol] 4.09 10*6/uL Low 4.2-5.4 [facility] Serum creatinine measurement (mass/volume)Ordered By: Delgado Amaro on 08-19-2024 Creatinine [Mass/Vol] 1.15 mg/dL 0.70-1.20 [facility] Serum glucose measurement (m ass/volume)Ordered By: Delgado Amaro on 08-19-2024 Glucose [Mass/Vol] 101 mg/dL High 70-99 [facility] Serum or plasma calcium kay urement (mass/volume)Ordered By: Delgado Amaro on 08-19-2024 Calcium [Mass/Vol] 9.7 mg/dL 7.6-11.0 [facility] Serum or plasma urea nitroge n measurement (mass/volume)Ordered By: Delgado Amaro on 08-19-2024 Urea nitrogen [Mass/Vol] 22 mg/dL High 4-[address] [facility] Sodium levelOrdered By: Dimitry Amaro on 08-19-2024 Sodium [Moles/Vol] 138 mmol/L 133-145 [facility] White blood cell (WBC) count Ordered By: Delgado Amaro on 08-19-2024 WBC (Bld) [#/Vol] 6.4 10*3/uL 4.4-11.0 [facility] Cardiovascular stress test r eportOrdered By: Henri Pedraza on 08-13-2024 Study report [facility] [address] [place] [address] MR#: [id number] Acct: [id number] Name: DARYN GUILLERMO Rep #: [id number] : 1945 78 From: Henri Pedraza [...] of 34%. This note was generated with [employer] software. It may contain incorrectwords, spelling, and punctuation that were not noted in checking the note beforesigning. 08/13/24 1045 Date _ Henri Pedraza MD CC: Dr. Henri Pedraza MD; April Mullen MD ~ Date Dictated: 08/13/24 1041 Date Transcribed: 08/13/24 104 Mechanical Systems Engineer: ROGER Sterling [facility] Work Phone: Echo Completeon 08-13-2024 Echo Complete Normal [facility] Echocardiogram study reportO rdered By: Henri Pedraza on 08-13-2024 Study report [facility] [address] [place] [address] Echo Complete 08/13/24 1000 MR#: [id number] Acct: [id number] Name: DARYN GUILLERMO BLANE Rep #:[id number] 2 : 1945 78 From: Henri Pedraza MD Attending Dr: Dr. Henri Pedraza MD Status: REG CLI Ordering Dr: Henri Pedraza MD Date: Location: [facility] Sex: F C Admitted: Reason For [...] Dictated: 08/13/24 1000 Date Transcribed: 08/13/24 1153 Mechanical Systems Engineer: Signed [facility] Work Phone: Stress Reporton 08-13-2024 Stress Report Normal [facility] Gastroenterology Visit Repor ton 07-31-2024 Gastroenterology Visit Report Normal [facility] 12 Lead EKG performed by [facility] on 07-23-2024 12 Lead EKG performed by [facility] Normal [facility] Cardiology Visit Reporton Cardiology Visit Report Normal [facility] Anion gap in Serum or Plasma Ordered By: Delgado mAaro on 07-22-2024 Anion gap [Moles/Vol] 10 mmol/L 08-21 [facility] Automated blood erythrocyte countOrdered By: Delgado Amaro on 07-22-2024 RBC (Bld) [#/Vol] 4.28 10*6/uL Normal 4.2-5.4 [facility] Comment on above: Order Comment: 503.2 Performed By: #### L 100.0500, L500.2500 ####[facility] [address] [place], [address] Automated blood hematocrit ( percentage)Ordered By: Delgado Amaro on 07-22-2024 Hematocrit (Bld) [Volume fraction] 35.6 % Low 37-[address] [facility] Comment on above: Order Comment: 503.2 Performed By: #### L 100.0500, L500.2500 ####[facility] [address] [place], [address] BUN/creatinine ratioOrdered By: Delgado Amaro on 07-22-2024 Urea nitrogen/Creatinine [Mass ratio] 16.8 mg/mg - [facility] Basic Metabolic Profile (BMP )on 07-22-2024 BUN/CRE 16.8 RATIO Normal - [facility] Comment on above: Order Comment: 503.2 Performed By: #### L 100.0500, L500.2500 ####[facility] [address] [place], [address] GAP 10 Normal - [facility] Comment on above: Order Comment: 503.2 Performed By: #### L 100.0500, L500.2500 ####[facility] [address] [place], [address] Potassium [Moles/Vol] 3.9 mmol/L Normal 3.3-5.1 [facility] Comment on above: Order Comment: 503.2 Performed By: #### L 100.0500, L500.2500 ####[facility] [address] [place], [address] CBC-Complete Blood Cnt No Di ffon 07-22-2024 RDW SD 55.6 fl High 35.1-43.[address] [facility] Comment on above: Order Comment: 503.2 Performed By: #### L 100.0500, L500.2500 ####[facility] [address] [place], [address] Carbon dioxide, total [Moles /volume] in Central venous bloodOrdered By: Delgado Amaro on 07-22-2024 CO2 [Moles/Vol] 28.7 mmol/L Normal 21.0-32.[address] [facility] Comment on above: Order Comment: 503.2 Performed By: #### L 100.0500, L500.2500 ####[facility] [address] [place], [address] Chloride assayOrdered By: Kade Amaro on 07-22-2024 Chloride [Moles/Vol] 102 mmol/L Normal 98-108 [place] Comment on above: Order Comment: 503.2 Performed By: #### L 100.0500, L500.2500 ####[facility] [address] [place], [address] Erythrocyte distribution wid th ratioOrdered By: Delgado Amaro on 07-22-2024 Erythrocyte distribution width (RBC) [Ratio] 18.2 % High 11.6-14.[address] [facility] Comment on above: Order Comment: 503.2 Performed By: #### L 100.0500, L500.2500 ####[facility] [address] [place], [address] Erythrocyte distribution wid th standard deviationOrdered By: Delgado Amaro on 07-22-2024 Erythrocyte distribution width (RBC) [Ratio] 55.6 fl High 35.1-43.[address] [facility] Glomerular filtration rate ( GFR) estimation/1.73 sq m using serum, plasma, or whole bOrdered By: Delgado Amaro on 07-22-2024 GFR/1.73 sq M.predicted among non-blacks MDRD (S/P/Bld) [Vol rate/Area] 47 mL/min/{1.73_m2} Low >[address] [facility] Comment on above: mL/min/1.73m2 CKD-EP I Creatinine Equation (2020) Order Comment: 503.2 Result Comment: mL/m in/1.73m2 CKD-EPI Creatinine Equation (2020) Performed By: #### L 100.0500, L500.2500 ####[facility] [address] [place], [address] Hemoglobin measurementOrdere d By: Delgado Amaro on 07-22-2024 Hemoglobin (Bld) [Mass/Vol] 11.4 g/dL Low 12.0-15.[address] [facility] Comment on above: Order Comment: 503.2 Performed By: #### L 100.0500, L500.2500 ####[facility] [address] [place], [address] MCV (mean corpuscular volume ) determinationOrdered By: Delgado Amaro on 07-22-2024 MCV (RBC) [Entitic vol] 83.2 fL Normal 81-[address] [facility] Comment on above: Order Comment: 503.2 Performed By: #### L 100.0500, L500.2500 ####[facility] [address] [place], [address] Mean corpuscular hemoglobin (MCH) determinationOrdered By: Delgado Amaro on 07-22-2024 MCH (RBC) [Entitic mass] 26.6 pg Low 27.0-32.[address] [facility] Comment on above: Order Comment: 503.2 Performed By: #### L 100.0500, L500.2500 ####[facility] [address] [place], [address] Mean corpuscular hemoglobin concentration (MCHC) determinationOrdered By: Delgado Amaro on 07-22-2024 MCHC (RBC) [Mass/Vol] 32.0 g/dL Normal 32-36 [facility] Comment on above: Order Comment: 503.2 Performed By: #### L 100.0500, L500.2500 ####[facility] [address] [place], [address] Mean platelet volume determi nationOrdered By: Delgado Amaro on 07-22-2024 Platelet mean volume (Bld) [Entitic vol] 9.2 fL Normal 6.2-12.[address] [facility] Comment on above: Order Comment: 503.2 Performed By: #### L 100.0500, L500.2500 ####[facility] [address] [place], [address] Platelet countOrdered By: Kade Amaro on 07-22-2024 Platelets (Bld) [#/Vol] 159 10*3/uL Normal 150-[address] [facility] Comment on above: Order Comment: 503.2 Performed By: #### L 100.0500, L500.2500 ####[facility] [address] [place], [address] Potassium measurement (mass/ volume)Ordered By: Delgado Amaro on 07-22-2024 Potassium (Unsp spec) [Mass/Vol] 3.9 mmol/L 3.3-5.[address] [facility] Serum creatinine measurement (mass/volume)Ordered By: Delgado Amaro on 07-22-2024 Creatinine [Mass/Vol] 1.19 mg/dL Normal 0.70-1.20 [facility] Comment on above: Order Comment: 503.2 Performed By: #### L 100.0500, L500.2500 ####[facility] [address] [place], [address] Serum glucose measurement (m ass/volume)Ordered By: Delgado Amaro on 07-22-2024 Glucose [Mass/Vol] 82 mg/dL Normal 70-99 [facility] Comment on above: Order Comment: 503.2 Performed By: #### L 100.0500, L500.2500 ####[facility] [address] [place], [address] Serum or plasma calcium kay urement (mass/volume)Ordered By: Delgado Amaro on 07-22-2024 Calcium [Mass/Vol] 9.2 mg/dL Normal 7.6-11.0 [facility] Comment on above: Order Comment: 503.2 Performed By: #### L 100.0500, L500.2500 ####[facility] [address] [place], [address] Serum or plasma urea nitroge n measurement (mass/volume)Ordered By: Delgado Amaro on 07-22-2024 Urea nitrogen [Mass/Vol] 20 mg/dL High 4-[address] [facility] Comment on above: Order Comment: 503.2 Performed By: #### L 100.0500, L500.2500 ####[facility] [address] [place], [address] Sodium levelOrdered By: Dimitry Amaro on 07-22-2024 Sodium [Moles/Vol] 141 mmol/L Normal 133-145 [facility] Comment on above: Order Comment: 503.2 Performed By: #### L 100.0500, L500.2500 ####[facility] [address] [place], [address] White blood cell (WBC) count Ordered By: Delgado Amaro on 07-22-2024 WBC (Bld) [#/Vol] 6.9 10*3/uL Normal 4.4-11.0 [facility] Comment on above: Order Comment: 503.2 Performed By: #### L 100.0500, L500.2500 ####[facility] [address] [place], [address] Bedside Glucoseon 07-01-2024 FINGERSTICK GLU 62 mg/dL Low 74-[address] [facility] Comment on above: Result Comment: ASHU KELLY OF PATIENT CARE PER NURSING PROTOCOL Performed By: #### L 501.080 ####[facility] [address] [place], [address] Colonoscopy Reporton Colonoscopy Report Normal [facility] EGD Reporton 07-01-2024 EGD Report Normal [facility] deOrdered By: Jacinto Munoz on 07-01-2024 Bedside Glucose (Misc Panel) 62 mg/dL Low 74-[address] [facility] Comment on above: MANAGEMENT OF PATIEN T CARE PER NURSING PROTOCOL Glucose [Mass/Vol] 62 mg/dL Low 74-106 [facility] Comment on above: MANAGEMENT OF PATIEN T CARE PER NURSING PROTOCOL MR/POSTOP.ANEon 07-01-2024 MR/POSTOP.ANE Normal [facility] MR/QMVZLNUT7ow 07-01-2024 MR/POSTOPAN2 Normal [facility] Surgery Specimen Level Lon 07-01-2024 Surgery Specimen Level IV Normal [facility] Comment on above: Performed By: #### P SUIV ####[facility] [address] [place], [address] MR/PAT.ANEon 06-30-2024 MR/PAT.ANE Normal [facility] Anion gap in Serum or Plasma Ordered By: Delgado Amaro on 06-24-2024 Anion gap [Moles/Vol] 11 mmol/L 5-15 [facility] Automated blood erythrocyte countOrdered By: Delgado Amaro on 06-24-2024 RBC (Bld) [#/Vol] 4.14 10*6/uL Low 4.2-5.4 [facility] Comment on above: Order Comment: 503.2 Performed By: #### L 100.0500, L500.2500, L100.4500 ####[facility] [address] [place], [address] Automated blood hematocrit ( percentage)Ordered By: Delgado Amaro on 06-24-2024 Hematocrit (Bld) [Volume fraction] 32.9 % Low 37-[address] [facility] Comment on above: Order Comment: 503.2 Performed By: #### L 100.0500, L500.2500, L100.4500 ####[facility] [address] [place], [address] BUN/creatinine ratioOrdered By: Delgado Amaro on 06-24-2024 Urea nitrogen/Creatinine [Mass ratio] 18.1 mg/mg - [facility] Basic Metabolic Profile (BMP )on 06-24-2024 BUN/CRE 18.1 RATIO Normal 01-[address] [facility] Comment on above: Order Comment: 503.2 Performed By: #### L 100.0500, L500.2500, L100.4500 ####[facility] [address] [place], [address] GAP 11 Normal 5-[address] [facility] Comment on above: Order Comment: 503.2 Performed By: #### L 100.0500, L500.2500, L100.4500 ####[facility] [address] [place], [address] Blood manual differential co mment interpretation (narrative result)Ordered By: Delgado Amaro on 06-24-2024 Manual differential comment Jd (Bld) [Interp] COMMENT [facility] Comment on above: 1+ ANISO. CBC-Complete Blood Cnt No Di ffon 06-24-2024 RDW SD 57.4 fl High 35.1-43.[address] [facility] Comment on above: Order Comment: 503.2 Performed By: #### L 100.0500, L500.2500, L100.4500 ####[facility] [address] [place], [address] Carbon dioxide, total [Moles /volume] in Central venous bloodOrdered By: Delgado Amaro on 06-24-2024 CO2 [Moles/Vol] 26.3 mmol/L Normal 21.0-32.[address] [facility] Comment on above: Order Comment: 503.2 Performed By: #### L 100.0500, L500.2500, L100.4500 ####[facility] [address] [place], [address] Chloride assayOrdered By: Kade Amaro on 06-24-2024 Chloride [Moles/Vol] 103 mmol/L Normal 98-108 [place] Comment on above: Order Comment: 503.2 Performed By: #### L 100.0500, L500.2500, L100.4500 ####[facility] [address] [place], [address] Differential Commenton 06-24 SMEAR COMMENT COMMENT Normal [facility] Comment on above: Order Comment: 503.2 Result Comment: 1+ A NISO. Performed By: #### L 100.0500, L500.2500, L100.4500 ####[facility] [address] [place], [place], [address] Erythrocyte distribution wid th ratioOrdered By: Delgado Amaro on 06-24-2024 Erythrocyte distribution width (RBC) [Ratio] 20.1 % High 11.6-14.[address] [facility] Comment on above: Order Comment: 503.2 Performed By: #### L 100.0500, L500.2500, L100.4500 ####[facility] [address] [place], [place], [address] Erythrocyte distribution wid th standard deviationOrdered By: Delgado Amaro on 06-24-2024 Erythrocyte distribution width (RBC) [Entitic vol] 57.4 fL High 35.1-43.[address] [facility] Erythrocyte distribution width (RBC) [Ratio] 57.4 fl High 35.1-43.[address] [facility] GFR/1.73 sq M.predicted tanner g non-blacks MDRD (S/P/Bld) [Vol rate/Area]Ordered By: Delgado Amaro on 06-24-2024 Estimated GFR (MDRD) Non-Af Amer 49 Low >[address] [facility] Comment on above: mL/min/1.73m2 CKD-EP I Creatinine Equation (2020) Glomerular filtration rate ( GFR) estimation/1.73 sq m using serum, plasma, or whole bOrdered By: Delgado Amaro on 06-24-2024 GFR/1.73 sq M.predicted among non-blacks MDRD (S/P/Bld) [Vol rate/Area] 49 mL/min/{1.73_m2} Low >[address] [facility] Comment on above: mL/min/1.73m2 CKD-EP I Creatinine Equation (2020) Order Comment: 503.2 Result Comment: mL/m in/1.73m2 CKD-EPI Creatinine Equation (2020) Performed By: #### L 100.0500, L500.2500, L100.4500 ####[facility] [address] [place], [address] Hemoglobin measurementOrdere d By: Delgado Amaro on 06-24-2024 Hemoglobin (Bld) [Mass/Vol] 10.3 g/dL Low 12.0-15.[address] [facility] Comment on above: Order Comment: 503.2 Performed By: #### L 100.0500, L500.2500, L100.4500 ####[facility] [address] [place], [address] MCV (mean corpuscular volume ) determinationOrdered By: Delgado Amaro on 06-24-2024 MCV (RBC) [Entitic vol] 79.5 fL Low 81-[address] [facility] Comment on above: Order Comment: 503.2 Performed By: #### L 100.0500, L500.2500, L100.4500 ####[facility] [address] [place], [address] Manual differential comment Jd (Bld) [Interp]Ordered By: Delgado Amaro on 06-24-2024 Differential Comment COMMENT [place] Comment on above: 1+ ANISO. Mean corpuscular hemoglobin (MCH) determinationOrdered By: Delgado Amaro on 06-24-2024 MCH (RBC) [Entitic mass] 24.9 pg Low 27.0-32.[address] [facility] Comment on above: Order Comment: 503.2 Performed By: #### L 100.0500, L500.2500, L100.4500 ####[facility] [address] [place], [address] Mean corpuscular hemoglobin concentration (MCHC) determinationOrdered By: Delgado Amaro on 06-24-2024 MCHC (RBC) [Mass/Vol] 31.3 g/dL Low 32-36 [facility] Comment on above: Order Comment: 503.2 Performed By: #### L 100.0500, L500.2500, L100.4500 ####[facility] [address] [place], [address] Mean platelet volume determi nationOrdered By: Delgado Amaro on 06-24-2024 Platelet mean volume (Bld) [Entitic vol] 9.4 fL Normal 6.2-12.[address] [facility] Comment on above: Order Comment: 503.2 Performed By: #### L 100.0500, L500.2500, L100.4500 ####[facility] [address] [place], [address] Platelet countOrdered By: Kade Amaro on 06-24-2024 Platelets (Bld) [#/Vol] 137 10*3/uL Low 150-[address] [facility] Comment on above: Order Comment: 503.2 Performed By: #### L 100.0500, L500.2500, L100.4500 ####[facility] [address] [place], [address] Potassium measurement (mass/ volume)Ordered By: Delgado Amaro on 06-24-2024 Potassium [Moles/Vol] 3.8 mmol/L Normal 3.3-5.1 [facility] Comment on above: Order Comment: 503.2 Performed By: #### L 100.0500, L500.2500, L100.4500 ####[facility] [address] [place], [address] Potassium (Unsp spec) [Mass/Vol] 3.8 mmol/L 3.3-5.[address] [facility] Serum creatinine measurement (mass/volume)Ordered By: Delgado Amaro on 06-24-2024 Creatinine [Mass/Vol] 1.16 mg/dL Normal 0.70-1.20 [facility] Comment on above: Order Comment: 503.2 Performed By: #### L 100.0500, L500.2500, L100.4500 ####[facility] [address] [place], [address] Serum glucose measurement (m ass/volume)Ordered By: Delgado Amaro on 06-24-2024 Glucose [Mass/Vol] 102 mg/dL High 70-99 [facility] Comment on above: Order Comment: 503.2 Performed By: #### L 100.0500, L500.2500, L100.4500 ####[facility] [address] [place], [address] Serum or plasma calcium kay urement (mass/volume)Ordered By: Delgado Amaro on 06-24-2024 Calcium [Mass/Vol] 8.9 mg/dL Normal 7.6-11.0 [facility] Comment on above: Order Comment: 503.2 Performed By: #### L 100.0500, L500.2500, L100.4500 ####[facility] [address] [place], [address] Serum or plasma urea nitroge n measurement (mass/volume)Ordered By: Delgado Amaro on 06-24-2024 Urea nitrogen [Mass/Vol] 21 mg/dL High 4-[address] [facility] Comment on above: Order Comment: 503.2 Performed By: #### L 100.0500, L500.2500, L100.4500 ####[facility] [address] [place], [address] Sodium levelOrdered By: Dimitry Amaro on 06-24-2024 Sodium [Moles/Vol] 140 mmol/L Normal 133-145 [facility] Comment on above: Order Comment: 503.2 Performed By: #### L 100.0500, L500.2500, L100.4500 ####[facility] [address] [place], [address] White blood cell (WBC) count Ordered By: Delgado Amaro on 06-24-2024 WBC (Bld) [#/Vol] 6.3 10*3/uL Normal 4.4-11.0 [facility] Comment on above: Order Comment: 503.2 Performed By: #### L 100.0500, L500.2500, L100.4500 ####[facility] [address] [place], [address] BUN/creatinine ratioOrdered By: April Mullen on 06-04-2024 Urea nitrogen/Creatinine [Mass ratio] 24.1 mg/mg High 10-[address] [facility] Basic Metabolic Profile (BMP )on 06-04-2024 Anion gap [Moles/Vol] 12 mmol/L Normal 5-15 [facility] Comment on above: Order Comment: 503-2 Performed By: #### L 500.2500 ####[facility] [address] [place], [address] BUN/CRE 24.1 RATIO High 10-[address] [facility] Comment on above: Order Comment: 503-2 Performed By: #### L 500.2500 ####[facility] [address] [place], [address] Calcium [Mass/Vol] 9.1 mg/dL Normal 7.6-11.0 [facility] Comment on above: Order Comment: 503-2 Performed By: #### L 500.2500 ####[facility] [address] [place], [address] Chloride [Moles/Vol] 101 mmol/L Normal 96-108 [place] Comment on above: Order Comment: 503-2 Performed By: #### L 500.2500 ####[facility] [address] [place], [address] CO2 [Moles/Vol] 27.3 mmol/L Normal 22.0-29.[address] [facility] Comment on above: Order Comment: 503-2 Performed By: #### L 500.2500 ####[facility] [address] [place], [address] Creatinine [Mass/Vol] 1.2 mg/dL High 0.6-1.0 [facility] Comment on above: Order Comment: 503-2 Performed By: #### L 500.2500 ####[facility] [address] [place], [address] GFR/1.73 sq M.predicted among non-blacks MDRD (S/P/Bld) [Vol rate/Area] 49 mL/min/{1.73_m2} Low >[address] [facility] Comment on above: Order Comment: 503-2 Result Comment: mL/m in/1.73m2 CKD-EPI Creatinine Equation (2020) Performed By: #### L 500.2500 ####[facility] [address] [place], [address] Glucose [Mass/Vol] 122 mg/dL High 70-99 [facility] Comment on above: Order Comment: 503-2 Performed By: #### L 500.2500 ####[facility] [address] [place], [address] Potassium [Moles/Vol] 4.1 mmol/L Normal 3.3-5.1 [facility] Comment on above: Order Comment: 503-2 Performed By: #### L 500.2500 ####[facility] [address] [place], [address] Sodium [Moles/Vol] 140 mmol/L Normal 133-145 [facility] Comment on above: Order Comment: 503-2 Performed By: #### L 500.2500 ####[facility] [address] [place], [address] Urea nitrogen [Mass/Vol] 28 mg/dL High 4-[address] [facility] Comment on above: Order Comment: 503-2 Performed By: #### L 500.2500 ####[facility] [address] [place], [address] Carbon dioxide measurementOr dered By: April Mullen on 06-04-2024 CO2 [Moles/Vol] 27.3 mmol/L 22.0-29.[address] [facility] Chloride measurementOrdered By: April Mullen on 06-04-2024 Chloride [Moles/Vol] 101 mmol/L 96-108 [place] Creatinine [Moles/Vol]Ordere d By: April Mullen on 06-04-2024 Creatinine [Mass/Vol] 1.2 mg/dL High 0.6-1.0 [facility] GFR/1.73 sq M.predicted tanner g non-blacks MDRD (S/P/Bld) [Vol rate/Area]Ordered By: April Mullen on 06-04-2024 Estimated GFR (MDRD) Non-Af Amer 49 Low >[address] [facility] Comment on above: mL/min/1.73m2 CKD-EP I Creatinine Equation (2020) Glomerular filtration rate ( GFR) estimation/1.73 sq m using serum, plasma, or whole bOrdered By: April Mullen on 06-04-2024 GFR/1.73 sq M.predicted among non-blacks MDRD (S/P/Bld) [Vol rate/Area] 49 mL/min/{1.73_m2} Low >[address] [facility] Comment on above: mL/min/1.73m2 CKD-EP I Creatinine Equation (2020) Serum glucose measurement (m ass/volume)Ordered By: April Mullen on 06-04-2024 Glucose [Mass/Vol] 122 mg/dL High 70-99 [facility] Serum or plasma anion gap de termination (moles/volume)Ordered By: April Mullen on 06-04-2024 Anion gap [Moles/Vol] 12 mmol/L 5-15 [facility] Serum or plasma calcium kay urement (mass/volume)Ordered By: April Mullen on 06-04-2024 Calcium [Mass/Vol] 9.1 mg/dL 7.6-11.0 [facility] Serum or plasma creatinine m easurement (moles/volume)Ordered By: April Mullen on 06-04-2024 Creatinine [Moles/Vol] 1.2 mg/dL High 0.6-1.0 [facility] Serum or plasma potassium me asurementOrdered By: April Mullen on 06-04-2024 Potassium [Moles/Vol] 4.1 mmol/L 3.3-5.1 [facility] Serum or plasma sodium measu rement (moles/volume)Ordered By: April Mullen on 06-04-2024 Sodium [Moles/Vol] 140 mmol/L 133-145 [facility] Serum or plasma urea nitroge n measurement (mass/volume)Ordered By: April Mullen on 06-04-2024 Urea nitrogen [Mass/Vol] 28 mg/dL High 4-[address] [facility] BUN/creatinine ratioOrdered By: Delgado Amaro on 06-03-2024 Urea nitrogen/Creatinine [Mass ratio] 25.0 mg/mg High - [facility] Basic Metabolic Profile (BMP )on 06-03-2024 BUN/CRE 25.0 RATIO [facility] Comment on above: Performed By: #### L 500.2500 ####[facility] [address] [place], [address] Chloride [Moles/Vol] 101 mmol/L Normal 96-108 [place] Comment on above: Performed By: #### L 500.2500 ####[facility] [address] [place], [address] CO2 [Moles/Vol] 28.1 mmol/L Normal 22.0-29.[address] [facility] Comment on above: Performed By: #### L 500.2500 ####[facility] [address] [place], [address] BUN Normal 7-[address] [facility] Comment on above: Order Comment: 503.2 Result Comment: PUTT ING UNDER DIFFERENT REQ Performed By: #### L 100.0500, L500.2500 ####[facility] [address] [place], [address] BUN/CRE Normal 10-[address] [facility] Comment on above: Order Comment: 503.2 Result Comment: PUTT ING UNDER DIFFERENT REQ Performed By: #### L 100.0500, L500.2500 ####[facility] [address] [place], [address] Calcium Normal 8.5-10.[address] [facility] Comment on above: Order Comment: 503.2 Result Comment: PUTT ING UNDER DIFFERENT REQ Performed By: #### L 100.0500, L500.2500 ####[facility] [address] [place], [address] CL Normal 98-[address] [facility] Comment on above: Order Comment: 503.2 Result Comment: PUTT ING UNDER DIFFERENT REQ Performed By: #### L 100.0500, L500.2500 ####[facility] [address] [place], [address] CO2 Normal 21.0-32.[address] [facility] Comment on above: Order Comment: 503.2 Result Comment: PUTT ING UNDER DIFFERENT REQ Performed By: #### L 100.0500, L500.2500 ####[facility] [address] [place], [address] CREAT,SERUM Normal 0.55-1.[address] [facility] Comment on above: Order Comment: 503.2 Result Comment: PUTT ING UNDER DIFFERENT REQ Performed By: #### L 100.0500, L500.2500 ####[facility] [address] [place], [address] eGFR Normal >[address] [facility] Comment on above: Order Comment: 503.2 Result Comment: PUTT ING UNDER DIFFERENT REQ Performed By: #### L 100.0500, L500.2500 ####[facility] [address] [place], [address] EST GFR - AA Normal >[address] [facility] [facility] [facility] [facility] Comment on above: Order Comment: 503.2 Result Comment: PUTT ING UNDER DIFFERENT REQ Performed By: #### L 100.0500, L500.2500 ####[facility] [address] [place], [address] GAP Normal 5-[address] [facility] Comment on above: Order Comment: 503.2 Result Comment: PUTT ING UNDER DIFFERENT REQ Performed By: #### L 100.0500, L500.2500 ####[facility] [address] [place], [address] GLU Normal 74-[address] [facility] Comment on above: Order Comment: 503.2 Result Comment: PUTT ING UNDER DIFFERENT REQ Performed By: #### L 100.0500, L500.2500 ####[facility] [address] [place], [address] Potassium Normal 3.5-5.[address] [facility] Comment on above: Order Comment: 503.2 Result Comment: PUTT ING UNDER DIFFERENT REQ Performed By: #### L 100.0500, L500.2500 ####[facility] [address] [place], [address] Basic Metabolic Profile (BMP) Normal 136-[address] [facility] Comment on above: Order Comment: 503.2 Result Comment: PUTT ING UNDER DIFFERENT REQ Performed By: #### L 100.0500, L500.2500 ####[facility] [address] [place], [address] CBC-Complete Blood Cnt No Di ffon 06-03-2024 Erythrocyte distribution width (RBC) [Ratio] 20.0 % High 11.6-14.[address] [facility] Comment on above: Order Comment: 503.2 Performed By: #### L 100.0500, L500.2500 ####[facility] [address] [place], [address] Hematocrit (Bld) [Volume fraction] 33.1 % Low 37-[address] [facility] Comment on above: Order Comment: 503.2 Performed By: #### L 100.0500, L500.2500 ####[facility] [address] [place], [address] Hemoglobin (Bld) [Mass/Vol] 10.0 g/dL Low 12.0-15.[address] [facility] Comment on above: Order Comment: 503.2 Performed By: #### L 100.0500, L500.2500 ####[facility] [address] [place], [address] MCH (RBC) [Entitic mass] 24.4 pg Low 27.0-32.[address] [facility] Comment on above: Order Comment: 503.2 Performed By: #### L 100.0500, L500.2500 ####[facility] [address] [place], [address] MCHC (RBC) [Mass/Vol] 30.2 g/dL Low 32-36 [facility] Comment on above: Order Comment: 503.2 Performed By: #### L 100.0500, L500.2500 ####[facility] [address] [place], [address] MCV (RBC) [Entitic vol] 80.9 fL Low 81-[address] [facility] Comment on above: Order Comment: 503.2 Performed By: #### L 100.0500, L500.2500 ####[facility] [address] [place], [address] Platelet mean volume (Bld) [Entitic vol] 9.7 fL Normal 6.2-12.[address] [facility] Comment on above: Order Comment: 503.2 Performed By: #### L 100.0500, L500.2500 ####[facility] [address] [place], [address] Platelets (Bld) [#/Vol] 156 10*3/uL Normal 150-[address] [facility] Comment on above: Order Comment: 503.2 Performed By: #### L 100.0500, L500.2500 ####[facility] [address] [place], [address] RBC (Bld) [#/Vol] 4.09 10*6/uL Low 4.2-5.4 [facility] Comment on above: Order Comment: 503.2 Performed By: #### L 100.0500, L500.2500 ####[facility] [address] [place], [address] RDW SD 58.8 fl High 35.1-43.[address] [facility] Comment on above: Order Comment: 503.2 Performed By: #### L 100.0500, L500.2500 ####[facility] [address] [place], [address] WBC (Bld) [#/Vol] 6.0 10*3/uL Normal 4.4-11.0 [facility] Comment on above: Order Comment: 503.2 Performed By: #### L 100.0500, L500.2500 ####[facility] [address] [place], [address] Erythrocyte distribution wid th ratioOrdered By: Delgado Amaro on 06-03-2024 Erythrocyte distribution width (RBC) [Ratio] 20.0 % High 11.6-14.[address] [facility] Erythrocyte distribution wid th standard deviationOrdered By: Delgado Amaro on 06-03-2024 Erythrocyte distribution width (RBC) [Entitic vol] 58.8 fL High 35.1-43.[address] [facility] Erythrocyte distribution width (RBC) [Ratio] 58.8 fl High 35.1-43.[address] [facility] GFR/1.73 sq M.predicted tanner g non-blacks MDRD (S/P/Bld) [Vol rate/Area]Ordered By: Delgado Amaro on 06-03-2024 Estimated GFR (MDRD) Non-Af Amer 47 Low >[address] [facility] Comment on above: mL/min/1.73m2 CKD-EP I Creatinine Equation (2020) Glomerular filtration rate ( GFR) estimation/1.73 sq m using serum, plasma, or whole bOrdered By: Delgado Amaro on 06-03-2024 GFR/1.73 sq M.predicted among non-blacks MDRD (S/P/Bld) [Vol rate/Area] 47 mL/min/{1.73_m2} Low >[address] [facility] Comment on above: mL/min/1.73m2 CKD-EP I Creatinine Equation (2020) Result Comment: mL/m in/1.73m2 CKD-EPI Creatinine Equation (2020) Performed By: #### L 500.8703 ####[facility] [address] [place], [address] Hematocrit Auto (Bld) [Volum e fraction]Ordered By: Delgado Amaro on 06-03-2024 Hematocrit (Bld) [Volume fraction] 33.1 % Low 37-[address] [facility] Hemoglobin measurementOrdere d By: Delgado Amaro on 06-03-2024 Hemoglobin (Bld) [Mass/Vol] 10.0 g/dL Low 12.0-15.[address] [facility] MCV (mean corpuscular volume ) determinationOrdered By: Delgado Amaro on 06-03-2024 MCV (RBC) [Entitic vol] 80.9 fL Low 81-[address] [facility] Mean corpuscular hemoglobin (MCH) determinationOrdered By: Delgado Amaro on 06-03-2024 MCH (RBC) [Entitic mass] 24.4 pg Low 27.0-32.[address] [facility] Mean corpuscular hemoglobin concentration (MCHC) determinationOrdered By: Delgado Amaro on 06-03-2024 MCHC (RBC) [Mass/Vol] 30.2 g/dL Low 32-36 [facility] Mean platelet volume determi nationOrdered By: Delgado Amaro on 06-03-2024 Platelet mean volume (Bld) [Entitic vol] 9.7 fL 6.2-12.[address] [facility] Platelet countOrdered By: Kade Amaro on 06-03-2024 Platelets (Bld) [#/Vol] 156 10*3/uL 150-[address] [facility] RBC Auto (Bld) [#/Vol]Ordere d By: Delgado Amaro on 06-03-2024 RBC (Bld) [#/Vol] 4.09 10*6/uL Low 4.2-5.4 [facility] Serum glucose measurement (m ass/volume)Ordered By: Delgado Amaro on 06-03-2024 Glucose [Mass/Vol] 97 mg/dL Normal 70-99 [facility] Comment on above: Performed By: #### L 500.2500 ####[facility] [address] [place], [place], [phone] Serum or plasma anion gap de termination (moles/volume)Ordered By: Delgado Amaro on 06-03-2024 Anion gap [Moles/Vol] 10 mmol/L Normal 5-15 [facility] Comment on above: Performed By: #### L 500.2500 ####[facility] [address] [place], [address] Serum or plasma calcium kay urement (mass/volume)Ordered By: Delgado Amaro on 06-03-2024 Calcium [Mass/Vol] 9.3 mg/dL Normal 7.6-11.0 [facility] Comment on above: Performed By: #### L 500.2500 ####[facility] [address] [place], [address] Serum or plasma creatinine m easurement (moles/volume)Ordered By: Delgado Amaro on 06-03-2024 Creatinine [Mass/Vol] 1.2 mg/dL High 0.6-1.0 [facility] Comment on above: Performed By: #### L 500.2500 ####[facility] [address] [place], [place], [phone]) Creatinine [Moles/Vol] 1.2 mg/dL High 0.6-1.0 [facility] Serum or plasma potassium me asurementOrdered By: Delgado Amaro on 06-03-2024 Potassium [Moles/Vol] 4.4 mmol/L Normal 3.3-5.1 [facility] Comment on above: Performed By: #### L 500.2500 ####[facility] [address] [place], [phone] Serum or plasma sodium measu rement (moles/volume)Ordered By: Delgado Amaro on 06-03-2024 Sodium [Moles/Vol] 139 mmol/L Normal 133-145 [facility] Comment on above: Performed By: #### L 500.2500 ####[facility] [address] [place], [address] Serum or plasma urea nitroge n measurement (mass/volume)Ordered By: Delgado Amaro on 06-03-2024 Urea nitrogen [Mass/Vol] 30 mg/dL High 4-[address] [facility] Comment on above: Performed By: #### L 500.2500 ####[facility] [address] [place], [address] White blood cell (WBC) count Ordered By: Delgado Amaro on 06-03-2024 WBC (Bld) [#/Vol] 6.0 10*3/uL 4.4-11.0 [facility] Automated blood erythrocyte countOrdered By: April Mullen on 06-02-2024 RBC (Bld) [#/Vol] 4.17 10*6/uL Low 4.2-5.4 [facility] Comment on above: Order Comment: 503.2 Performed By: #### L 100.0500, L500.2500 ####[facility] [address] [place], [address] Automated blood hematocrit ( percentage)Ordered By: April Mullen on 06-02-2024 Hematocrit (Bld) [Volume fraction] 34.0 % Low 37-[address] [facility] Comment on above: Order Comment: 503.2 Performed By: #### L 100.0500, L500.2500 ####[facility] [address] [place], [address] Basic Metabolic Profile (BMP )on 06-02-2024 BUN/CRE 21.6 RATIO High 10-[address] [facility] Comment on above: Order Comment: 503.2 Performed By: #### L 100.0500, L500.2500 ####[facility] [address] [place], [address] CA,Total 9.1 mg/dL Normal 8.5-10.[address] [facility] Comment on above: Order Comment: 503.2 Performed By: #### L 100.0500, L500.2500 ####[facility] [address] [place], [address] EST GFR - AA 54 mL/min Low >[address] [facility] Comment on above: Order Comment: 503.2 Result Comment: Afri can Malagasy GFR Calc Performed By: #### L 100.0500, L500.2500 ####[facility] [address] [place], [address] GAP 4 Low 5-[address] [facility] Comment on above: Order Comment: 503.2 Performed By: #### L 100.0500, L500.2500 ####[facility] [address] [place], [address] Blood urea nitrogen (BUN)/cr eatinine ratioOrdered By: April Mullen on 06-02-2024 Urea nitrogen/Creatinine [Mass ratio] 21.6 mg/mg High 10-[address] [facility] CBC-Complete Blood Cnt No Di ffon 06-02-2024 RDW SD 58.6 fl High 35.1-43.[address] [facility] Comment on above: Order Comment: 503.2 Performed By: #### L 100.0500, L500.2500 ####[facility] [address] [place], [address] Carbon dioxide measurementOr dered By: April Mullen on 06-02-2024 CO2 [Moles/Vol] 33.0 mmol/L High 21.0-32.[address] [facility] Comment on above: Order Comment: 503.2 Performed By: #### L 100.0500, L500.2500 ####[facility] [address] [place], [address] Chloride measurementOrdered By: April Mullen on 06-02-2024 Chloride [Moles/Vol] 101 mmol/L Normal 98-107 [place] Comment on above: Order Comment: 503.2 Performed By: #### L 100.0500, L500.2500 ####[facility] [address] [place], [place], [id number] Erythrocyte distribution wid th ratioOrdered By: April Mullen on 06-02-2024 Erythrocyte distribution width (RBC) [Ratio] 20.0 % High 11.6-14.[address] [facility] Comment on above: Order Comment: 503.2 Performed By: #### L 100.0500, L500.2500 ####[facility] [address] [place], [address] Erythrocyte distribution wid th standard deviationOrdered By: April Mullen on 06-02-2024 Erythrocyte distribution width (RBC) [Entitic vol] 58.6 fL High 35.1-43.[address] [facility] Erythrocyte distribution width (RBC) [Ratio] 58.6 fl High 35.1-43.[address] [facility] Estimated glomerular filtrat ion rate (GFR) AmericanOrdered By: April Mullen on 06-02-2024 Estimated GFR (MDRD) Amer 54 mL/min Low >[address] [facility] Comment on above: GFR Calc Glomerular filtration rate ( GFR) estimationOrdered By: April Mullen on 06-02-2024 GFR/1.73 sq M.predicted among non-blacks MDRD (S/P/Bld) [Vol rate/Area] 44 mL/min/{1.73_m2} Low >[address] [facility] Comment on above: Non- GFR Calc Order Comment: 503.2 Result Comment: Non- GFR Calc Performed By: #### L 100.0500, L500.2500 ####[facility] [address] [place], [place], [id number] Estimated GFR (MDRD) Non-Af Amer 44 mL/min Low >[address] [facility] Comment on above: Non- GFR Calc Glucose measurementOrdered B y: April Mullen on 06-02-2024 Glucose [Mass/Vol] 101 mg/dL Normal 74-106 [facility] Comment on above: Fasting Glucose resu lt from 100 to 125 mg/dL suggests IMPAIRED HOMEOSTASIS per A.D.A. criteria. Order Comment: 503.2 Result Comment: Fast ing Glucose result from 100 to 125 mg/dLsuggests IMPAIRED HOMEOSTASIS per A.D.A. criteria. Performed By: #### L 100.0500, L500.2500 ####[facility] [address] [place], [address] Hemoglobin measurementOrdere d By: Apirl Mullen on 06-02-2024 Hemoglobin (Bld) [Mass/Vol] 10.2 g/dL Low 12.0-15.[address] [facility] Comment on above: Order Comment: 503.2 Performed By: #### L 100.0500, L500.2500 ####[facility] [address] [place], [address] MCV (mean corpuscular volume ) determinationOrdered By: April Mullen on 06-02-2024 MCV (RBC) [Entitic vol] 81.5 fL Normal 81-[address] [facility] Comment on above: Order Comment: 503.2 Performed By: #### L 100.0500, L500.2500 ####[facility] [address] [place], [address] Mean corpuscular hemoglobin (MCH) determinationOrdered By: April Mullen on 06-02-2024 MCH (RBC) [Entitic mass] 24.5 pg Low 27.0-32.[address] [facility] Comment on above: Order Comment: 503.2 Performed By: #### L 100.0500, L500.2500 ####[facility] [address] [place], [address] Mean corpuscular hemoglobin concentration (MCHC) determinationOrdered By: April Mullen on 06-02-2024 MCHC (RBC) [Mass/Vol] 30.0 g/dL Low 32-36 [facility] Comment on above: Order Comment: 503.2 Performed By: #### L 100.0500, L500.2500 ####[facility] [address] [place], [address] Mean platelet volume determi nationOrdered By: April Mullen on 06-02-2024 Platelet mean volume (Bld) [Entitic vol] 9.8 fL Normal 6.2-12.[address] [facility] Comment on above: Order Comment: 503.2 Performed By: #### L 100.0500, L500.2500 ####[facility] [address] [place], [address] Platelet countOrdered By: Darvin Mullen on 06-02-2024 Platelets (Bld) [#/Vol] 174 10*3/uL Normal 150-[address] [facility] Comment on above: Order Comment: 503.2 Performed By: #### L 100.0500, L500.2500 ####[facility] [address] [place], [address] Potassium measurementOrdered By: April Mullen on 06-02-2024 Potassium [Moles/Vol] 4.2 mmol/L Normal 3.5-5.1 [facility] Comment on above: Order Comment: 503.2 Performed By: #### L 100.0500, L500.2500 ####[facility] [address] [place], [address] Serum anion gap measurementO rdered By: April Mullen on 06-02-2024 Anion gap [Moles/Vol] 4 mmol/L Low 5-15 [facility] Serum or plasma calcium kay urement (mass/volume)Ordered By: April Mullen on 06-02-2024 Calcium [Mass/Vol] 9.1 mg/dL 8.5-10.1 [facility] Serum or plasma creatinine m easurement (mass/volume)Ordered By: April Mullen on 06-02-2024 Creatinine [Mass/Vol] 1.25 mg/dL High 0.55-1.02 [facility] Comment on above: The validity of the calculated GFR & GFRAA in patients over 70 years has not been determined. Clinical correlation is essential. Order Comment: 503.2 Result Comment: The validity of the calculated GFR GFRAA in patients over70 years has not been determined. Clinical correlation isessential. Performed By: #### L 100.0500, L500.2500 ####[facility] [address] [place], [address] Serum or plasma urea nitroge n measurement (mass/volume)Ordered By: April Mullen on 06-02-2024 Urea nitrogen [Mass/Vol] 27 mg/dL High - [facility] Comment on above: Order Comment: 503.2 Performed By: #### L 100.0500, L500.2500 ####[facility] [address] [place], [address] Sodium levelOrdered By: Yair Mullen on 06-02-2024 Sodium [Moles/Vol] 138 mmol/L Normal 136-145 [facility] Comment on above: Order Comment: 503.2 Performed By: #### L 100.0500, L500.2500 ####[facility] [address], [address] White blood cell (WBC) count Ordered By: April Mullen on 06-02-2024 WBC (Bld) [#/Vol] 6.4 10*3/uL Normal 4.4-11.0 [facility] Comment on above: Order Comment: 503.2 Performed By: #### L 100.0500, L500.2500 ####[facility] [address] [place], [address] Basic Metabolic Profile (BMP )on 05-27-2024 BUN/CRE 20.0 RATIO Normal 10-[address] [facility] Comment on above: Order Comment: 503.2 Performed By: #### L 100.0500, L500.2500, L100.4500 ####[facility] [address] [place], [address] CA,Total 8.7 mg/dL Normal 8.5-10.[address] [facility] Comment on above: Order Comment: 503.2 Performed By: #### L 100.0500, L500.2500, L100.4500 ####[facility] [address] [place], [address] Chloride [Moles/Vol] 104 mmol/L Normal 98-107 [place] Comment on above: Order Comment: 503.2 Performed By: #### L 100.0500, L500.2500, L100.4500 ####[facility] [address] [place], [address] CO2 [Moles/Vol] 30.0 mmol/L Normal 21.0-32.[address] [facility] Comment on above: Order Comment: 503.2 Performed By: #### L 100.0500, L500.2500, L100.4500 ####[facility] [address] [place], [address] Creatinine [Mass/Vol] 1.25 mg/dL High 0.55-1.02 [facility] Comment on above: Order Comment: 503.2 Result Comment: The validity of the calculated GFR GFRAA in patients over70 years has not been determined. Clinical correlation isessential. Performed By: #### L 100.0500, L500.2500, L100.4500 ####[facility] [address] [place], [address] EST GFR - AA 54 mL/min Low >[address] [facility] Comment on above: Order Comment: 503.2 Result Comment: Afri can Malagasy GFR Calc Performed By: #### L 100.0500, L500.2500, L100.4500 ####[facility] [address] [place], [address] GAP 7 Normal 5-[address] [facility] Comment on above: Order Comment: 503.2 Performed By: #### L 100.0500, L500.2500, L100.4500 ####[facility] [address] [place], [address] GFR/1.73 sq M.predicted among non-blacks MDRD (S/P/Bld) [Vol rate/Area] 44 mL/min/{1.73_m2} Low >[address] [facility] Comment on above: Order Comment: 503.2 Result Comment: Non- GFR Calc Performed By: #### L 100.0500, L500.2500, L100.4500 ####[facility] [address] [place], [address] Glucose [Mass/Vol] 101 mg/dL Normal 74-106 [facility] Comment on above: Order Comment: 503.2 Result Comment: Fast ing Glucose result from 100 to 125 mg/dLsuggests IMPAIRED HOMEOSTASIS per A.D.A. criteria. Performed By: #### L 100.0500, L500.2500, L100.4500 ####[facility] [address] [place], [address] Potassium [Moles/Vol] 3.7 mmol/L Normal 3.5-5.1 [facility] Comment on above: Order Comment: 503.2 Performed By: #### L 100.0500, L500.2500, L100.4500 ####[facility] [address] [place], [address] Sodium [Moles/Vol] 141 mmol/L Normal 136-145 [facility] Comment on above: Order Comment: 503.2 Performed By: #### L 100.0500, L500.2500, L100.4500 ####[facility] [address] [place], [address] Urea nitrogen [Mass/Vol] 25 mg/dL High 7-[address] [facility] Comment on above: Order Comment: 503.2 Performed By: #### L 100.0500, L500.2500, L100.4500 ####[facility] [address] [place], [address] Blood manual differential co mment interpretation (narrative result)Ordered By: April Mullen on 05-27-2024 Manual differential comment Jd (Bld) [Interp] See comment [facility] Comment on above: 1+ ANISOCYTOSIS1+ OV ALOCYTESSLIGHTLY DECREASED PLATELETS Blood urea nitrogen (BUN)/cr eatinine ratioOrdered By: April Mullen on 05-27-2024 Urea nitrogen/Creatinine [Mass ratio] 20.0 mg/mg 10- [facility] CBC-Complete Blood Cnt No Di ffon 05-27-2024 Erythrocyte distribution width (RBC) [Ratio] 20.2 % High 11.6-14.[address] [facility] Comment on above: Order Comment: 503.2 Performed By: #### L 100.0500, L500.2500, L100.4500 ####[facility] [address] [place], [address] Hematocrit (Bld) [Volume fraction] 35.3 % Low 37-[address] [facility] Comment on above: Order Comment: 503.2 Performed By: #### L 100.0500, L500.2500, L100.4500 ####[facility] [address] [place], [address] Hemoglobin (Bld) [Mass/Vol] 10.5 g/dL Low 12.0-15.[address] [facility] Comment on above: Order Comment: 503.2 Performed By: #### L 100.0500, L500.2500, L100.4500 ####[facility] [address] [place], [address] MCH (RBC) [Entitic mass] 24.0 pg Low 27.0-32.[address] [facility] Comment on above: Order Comment: 503.2 Performed By: #### L 100.0500, L500.2500, L100.4500 ####[facility] [address] [place], [address] MCHC (RBC) [Mass/Vol] 29.7 g/dL Low 32-36 [facility] Comment on above: Order Comment: 503.2 Performed By: #### L 100.0500, L500.2500, L100.4500 ####[facility] [address] [place], [address] MCV (RBC) [Entitic vol] 80.6 fL Low 81-[address] [facility] Comment on above: Order Comment: 503.2 Performed By: #### L 100.0500, L500.2500, L100.4500 ####[facility] [address] [place], [address] Platelet mean volume (Bld) [Entitic vol] 9.2 fL Normal 6.2-12.[address] [facility] Comment on above: Order Comment: 503.2 Performed By: #### L 100.0500, L500.2500, L100.4500 ####[facility] [address] [place], [address] Platelets (Bld) [#/Vol] 149 10*3/uL Low 150-[address] [facility] Comment on above: Order Comment: 503.2 Performed By: #### L 100.0500, L500.2500, L100.4500 ####[facility] [address] [place], [address] RBC (Bld) [#/Vol] 4.38 10*6/uL Normal 4.2-5.4 [facility] Comment on above: Order Comment: 503.2 Performed By: #### L 100.0500, L500.2500, L100.4500 ####[facility] [address] [place], [address] RDW SD 58.6 fl High 35.1-43.[address] [facility] Comment on above: Order Comment: 503.2 Performed By: #### L 100.0500, L500.2500, L100.4500 ####[facility] [address] [place], [address] WBC (Bld) [#/Vol] 5.3 10*3/uL Normal 4.4-11.0 [facility] Comment on above: Order Comment: 503.2 Performed By: #### L 100.0500, L500.2500, L100.4500 ####[facility] [address] [place], [place], [id number]) Carbon dioxide measurementOr dered By: April Mullen on 05-27-2024 CO2 [Moles/Vol] 30.0 mmol/L 21.0-32.[address] [facility] Chloride measurementOrdered By: April Mullen on 05-27-2024 Chloride [Moles/Vol] 104 mmol/L 98-107 [place] Differential Commenton 05-27 SMEAR COMMENT Normal [facility] Comment on above: Order Comment: 503.2 Result Comment: 1+ A NISOCYTOSIS1+ OVALOCYTESSLIGHTLY DECREASED PLATELETS Performed By: #### L 100.0500, L500.2500, L100.4500 ####[facility] [address] [place], [place], [address] Erythrocyte distribution wid th ratioOrdered By: April Mullen on 05-27-2024 Erythrocyte distribution width (RBC) [Ratio] 20.2 % High 11.6-14.[address] [facility] Erythrocyte distribution wid th standard deviationOrdered By: April Mullen on 05-27-2024 Erythrocyte distribution width (RBC) [Entitic vol] 58.6 fL High 35.1-43.[address] [facility] Erythrocyte distribution width (RBC) [Ratio] 58.6 fl High 35.1-43.[address] [facility] Estimated glomerular filtrat ion rate (GFR) AmericanOrdered By: April Mullen on 05-27-2024 Estimated GFR (MDRD) Amer 54 mL/min Low >[address] [facility] Comment on above: GFR Calc Glomerular filtration rate ( GFR) estimationOrdered By: April Mullen on 05-27-2024 Estimated GFR (MDRD) Non-Af Amer 44 mL/min Low >[address] [facility] Comment on above: Non- GFR Calc GFR/1.73 sq M.predicted among non-blacks MDRD (S/P/Bld) [Vol rate/Area] 44 mL/min/{1.73_m2} Low >[address] [facility] Comment on above: Non- GFR Calc Glucose measurementOrdered B y: April Mullen on 05-27-2024 Glucose [Mass/Vol] 101 mg/dL 74-106 [facility] Comment on above: Fasting Glucose resu lt from 100 to 125 mg/dL suggests IMPAIRED HOMEOSTASIS per A.D.A. criteria. Hematocrit Auto (Bld) [Volum e fraction]Ordered By: April Mullen on 05-27-2024 Hematocrit (Bld) [Volume fraction] 35.3 % Low 37-[address] [facility] Hemoglobin measurementOrdere d By: April Mullen on 05-27-2024 Hemoglobin (Bld) [Mass/Vol] 10.5 g/dL Low 12.0-15.[address] [facility] MCV (mean corpuscular volume ) determinationOrdered By: April Mullen on 05-27-2024 MCV (RBC) [Entitic vol] 80.6 fL Low 81-[address] [facility] Manual differential comment Jd (Bld) [Interp]Ordered By: April Mullen on 05-27-2024 Differential Comment See comment [facility] Comment on above: 1+ ANISOCYTOSIS1+ OV ALOCYTESSLIGHTLY DECREASED PLATELETS Mean corpuscular hemoglobin (MCH) determinationOrdered By: April Mullen on 05-27-2024 MCH (RBC) [Entitic mass] 24.0 pg Low 27.0-32.[address] [facility] Mean corpuscular hemoglobin concentration (MCHC) determinationOrdered By: April Mullen on 05-27-2024 MCHC (RBC) [Mass/Vol] 29.7 g/dL Low 32-36 [facility] Mean platelet volume determi nationOrdered By: April Mullen on 05-27-2024 Platelet mean volume (Bld) [Entitic vol] 9.2 fL 6.2-12.[address] [facility] Platelet countOrdered By: Darvin Mullen on 05-27-2024 Platelets (Bld) [#/Vol] 149 10*3/uL Low 150-[address] [facility] Potassium measurementOrdered By: April Mullen on 05-27-2024 Potassium [Moles/Vol] 3.7 mmol/L 3.5-5.1 [facility] RBC Auto (Bld) [#/Vol]Ordere d By: April Mullen on 05-27-2024 RBC (Bld) [#/Vol] 4.38 10*6/uL 4.2-5.4 [facility] Serum anion gap measurementO rdered By: April Mullen on 05-27-2024 Anion gap [Moles/Vol] 7 mmol/L 5-15 [facility] Serum or plasma calcium kay urement (mass/volume)Ordered By: April Mullen on 05-27-2024 Calcium [Mass/Vol] 8.7 mg/dL 8.5-10.1 [facility] Serum or plasma creatinine m easurement (mass/volume)Ordered By: April Mullen on 05-27-2024 Creatinine [Mass/Vol] 1.25 mg/dL High 0.55-1.02 [facility] Comment on above: The validity of the calculated GFR & GFRAA in patients over 70 years has not been determined. Clinical correlation is essential. Serum or plasma urea nitroge n measurement (mass/volume)Ordered By: April Mullen on 05-27-2024 Urea nitrogen [Mass/Vol] 25 mg/dL High 7-[address] [facility] Sodium levelOrdered By: Yair Mullen on 05-27-2024 Sodium [Moles/Vol] 141 mmol/L 136-145 [facility] White blood cell (WBC) count Ordered By: April Mullen on 05-27-2024 WBC (Bld) [#/Vol] 5.3 10*3/uL 4.4-11.0 [facility] 35-BS-Lostvjz DOrdered By: Selina Amaro on 05-12-2024 Vitamin D 25-Hydroxy 41.0 ng/mL [place] Comment on above: Vitamin D 25(OH) Sta tus Range Deficiency <20 ng/mL (50nmol/L) Insufficiency 20 - 30 ng/mL (50 - 75 nmol/L) Sufficiency 30 - 100 ng/mL (75 - 250 nmol/L) Toxicity >100 ng/mL (>250 nmol/L) Albumin to globulin ratioOrd ered By: Delgado Amaro on 05-12-2024 Albumin/Globulin [Mass ratio] 0.7 {ratio} Low 0.9-2.[address] [facility] BNP (brain natriuretic pepti de measurement)Ordered By: Delgado Amaro on 05-12-2024 Natriuretic peptide B (Bld) [Mass/Vol] 403.6 pg/mL High 0-[address] [facility] Comment on above: Performed By: #### L 100.0500, L506.1000, L500.4050, L503.6620, L100.4500 ####[facility] [address] [place], [address] Bilirubin, totalOrdered By: Delgado Amaro on 05-12-2024 Bilirubin [Mass/Vol] 0.20 mg/dL 0.20-1.00 [place] Comment on above: For patients on eltr ombopag therapy, use of Dimension [place] TBIL is not recommended. Blood manual differential co mment interpretation (narrative result)Ordered By: Delgado Amaro on 05-12-2024 Manual differential comment Jd (Bld) [Interp] COMMENT [facility] Comment on above: 1+ ANISO. Blood urea nitrogen (BUN)/cr eatinine ratioOrdered By: Delgado Amaro on 05-12-2024 Urea nitrogen/Creatinine [Mass ratio] 26.5 mg/mg High 10-[address] [facility] CBC-Complete Blood Cnt No Di ffon 05-12-2024 Erythrocyte distribution width (RBC) [Ratio] 20.8 % High 11.6-14.[address] [facility] Comment on above: Performed By: #### L 100.0500, L506.1000, L500.4050, L503.6620, L100.4500 ####[facility] [address] [place], [address] Hematocrit (Bld) [Volume fraction] 31.4 % Low 37-[address] [facility] Comment on above: Performed By: #### L 100.0500, L506.1000, L500.4050, L503.6620, L100.4500 ####[facility] [address] [place], [address] Hemoglobin (Bld) [Mass/Vol] 9.2 g/dL Low 12.0-15.[address] [facility] Comment on above: Performed By: #### L 100.0500, L506.1000, L500.4050, L503.6620, L100.4500 ####[facility] [address] [place], [address] MCH (RBC) [Entitic mass] 23.8 pg Low 27.0-32.[address] [facility] Comment on above: Performed By: #### L 100.0500, L506.1000, L500.4050, L503.6620, L100.4500 ####[facility] [address] [place], [address] MCHC (RBC) [Mass/Vol] 29.3 g/dL Low 32-36 [facility] Comment on above: Performed By: #### L 100.0500, L506.1000, L500.4050, L503.6620, L100.4500 ####[facility] [address] [place], [address] MCV (RBC) [Entitic vol] 81.3 fL Normal 81-[address] [facility] Comment on above: Performed By: #### L 100.0500, L506.1000, L500.4050, L503.6620, L100.4500 ####[facility] [address] [place], [address] Platelet mean volume (Bld) [Entitic vol] 9.5 fL Normal 6.2-12.[address] [facility] Comment on above: Performed By: #### L 100.0500, L506.1000, L500.4050, L503.6620, L100.4500 ####[facility] [address] [place], [address] Platelets (Bld) [#/Vol] 164 10*3/uL Normal 150-[address] [facility] Comment on above: Performed By: #### L 100.0500, L506.1000, L500.4050, L503.6620, L100.4500 ####[facility] [address] [place], [address] RBC (Bld) [#/Vol] 3.86 10*6/uL Low 4.2-5.4 [facility] Comment on above: Performed By: #### L 100.0500, L506.1000, L500.4050, L503.6620, L100.4500 ####[facility] [address] [place], [address] RDW SD 60.6 fl High 35.1-43.[address] [facility] Comment on above: Performed By: #### L 100.0500, L506.1000, L500.4050, L503.6620, L100.4500 ####[facility] [address] [place], [address] WBC (Bld) [#/Vol] 5.6 10*3/uL Normal 4.4-11.0 [facility] Comment on above: Performed By: #### L 100.0500, L506.1000, L500.4050, L503.6620, L100.4500 ####[facility] [address] [place], [address] Carbon dioxide measurementOr dered By: Delgado Amaro on 05-12-2024 CO2 [Moles/Vol] 30.0 mmol/L 21.0-32.[address] [facility] Chloride measurementOrdered By: Delgado Amaro on 05-12-2024 Chloride [Moles/Vol] 103 mmol/L 98-107 [place] Comprehensive Metabolic Prof ilon 05-12-2024 Albumin [Mass/Vol] 2.6 g/dL Low 3.2-5.0 [facility] Comment on above: Performed By: #### L 100.0500, L506.1000, L500.4050, L503.6620, L100.4500 ####[facility] [address] [place], [address] Albumin/Globulin [Mass ratio] 0.7 {ratio} Low 0.9-2.[address] [facility] Comment on above: Performed By: #### L 100.0500, L506.1000, L500.4050, L503.6620, L100.4500 ####[facility] [address] [place], [address] ALK P 109 U/L Normal 45-[address] [facility] Comment on above: Performed By: #### L 100.0500, L506.1000, L500.4050, L503.6620, L100.4500 ####[facility] [address] [place], [address] ALT [Catalytic activity/Vol] 14 U/L Normal 13-[address] [facility] Comment on above: Performed By: #### L 100.0500, L506.1000, L500.4050, L503.6620, L100.4500 ####[facility] [address] [place], [address] AST [Catalytic activity/Vol] 20 U/L Normal 15-[address] [facility] Comment on above: Performed By: #### L 100.0500, L506.1000, L500.4050, L503.6620, L100.4500 ####[facility] [address] [place], [address] Bilirubin [Mass/Vol] 0.20 mg/dL Normal 0.20-1.00 [place] Comment on above: Result Comment: For patients on eltrombopag therapy, use of Dimension [place] TBIL is not recommended. Performed By: #### L 100.0500, L506.1000, L500.4050, L503.6620, L100.4500 ####[facility] [address] [place], [address] BUN/CRE 26.5 RATIO High 10-[address] [facility] Comment on above: Performed By: #### L 100.0500, L506.1000, L500.4050, L503.6620, L100.4500 ####[facility] [address] [place], [address] CA,Total 9.0 mg/dL Normal 8.5-10.[address] [facility] Comment on above: Performed By: #### L 100.0500, L506.1000, L500.4050, L503.6620, L100.4500 ####[facility] [address] [place], [address] Chloride [Moles/Vol] 103 mmol/L Normal 98-107 [place] Comment on above: Performed By: #### L 100.0500, L506.1000, L500.4050, L503.6620, L100.4500 ####[facility] [address] [place], [address] CO2 [Moles/Vol] 30.0 mmol/L Normal 21.0-32.[address] [facility] Comment on above: Performed By: #### L 100.0500, L506.1000, L500.4050, L503.6620, L100.4500 ####[facility] [address] [place], [address] Creatinine [Mass/Vol] 1.13 mg/dL High 0.55-1.02 [facility] Comment on above: Result Comment: The validity of the calculated GFR GFRAA in patients over70 years has not been determined. Clinical correlation isessential. Performed By: #### L 100.0500, L506.1000, L500.4050, L503.6620, L100.4500 ####[facility] [address] [place], [address] EST GFR - AA 60 mL/min Normal >[address] [facility] Comment on above: Result Comment: Afri can Malagasy GFR Calc Performed By: #### L 100.0500, L506.1000, L500.4050, L503.6620, L100.4500 ####[facility] [address] [place], [address] GAP 7 Normal 5-[address] [facility] Comment on above: Performed By: #### L 100.0500, L506.1000, L500.4050, L503.6620, L100.4500 ####[facility] [address] [place], [address] GFR/1.73 sq M.predicted among non-blacks MDRD (S/P/Bld) [Vol rate/Area] 50 mL/min/{1.73_m2} Low >[address] [facility] Comment on above: Result Comment: Non- GFR Calc Performed By: #### L 100.0500, L506.1000, L500.4050, L503.6620, L100.4500 ####[facility] [address] [place], [address] Globulin (S) [Mass/Vol] 3.8 g/dL Normal 2.2-4.[address] [facility] Comment on above: Performed By: #### L 100.0500, L506.1000, L500.4050, L503.6620, L100.4500 ####[facility] [address] [place], [address] Glucose [Mass/Vol] 97 mg/dL Normal 74-106 [facility] Comment on above: Performed By: #### L 100.0500, L506.1000, L500.4050, L503.6620, L100.4500 ####[facility] [address] [place], [address] Potassium [Moles/Vol] 3.6 mmol/L Normal 3.5-5.1 [facility] Comment on above: Performed By: #### L 100.0500, L506.1000, L500.4050, L503.6620, L100.4500 ####[facility] [address] [place], [address] Sodium [Moles/Vol] 140 mmol/L Normal 136-145 [facility] Comment on above: Performed By: #### L 100.0500, L506.1000, L500.4050, L503.6620, L100.4500 ####[facility] [address] [place], [address] T PROT 6.4 g/dL Normal 6.4-8.[address] [facility] Comment on above: Performed By: #### L 100.0500, L506.1000, L500.4050, L503.6620, L100.4500 ####[facility] [address] [place], [address] Urea nitrogen [Mass/Vol] 30 mg/dL High 7-[address] [facility] Comment on above: Performed By: #### L 100.0500, L506.1000, L500.4050, L503.6620, L100.4500 ####[facility] [address] [place], [address] Differential Commenton 05-12 SMEAR COMMENT COMMENT Normal [facility] Comment on above: Result Comment: 1+ A NISO. Performed By: #### L 100.0500, L506.1000, L500.4050, L503.6620, L100.4500 ####[facility] [address] [place], [address] Erythrocyte distribution wid th ratioOrdered By: Delgado Amaro on 05-12-2024 Erythrocyte distribution width (RBC) [Ratio] 20.8 % High 11.6-14.[address] [facility] Erythrocyte distribution wid th standard deviationOrdered By: Delgado Amaro on 05-12-2024 Erythrocyte distribution width (RBC) [Entitic vol] 60.6 fL High 35.1-43.[address] [facility] Erythrocyte distribution width (RBC) [Ratio] 60.6 fl High 35.1-43.[address] [facility] Estimated glomerular filtrat ion rate (GFR) AmericanOrdered By: Delgado Amaro on 05-12-2024 Estimated GFR (MDRD) Amer 60 mL/min >[address] [facility] Comment on above: GFR Calc Glomerular filtration rate ( GFR) estimationOrdered By: Delgado Amaro on 05-12-2024 Estimated GFR (MDRD) Non-Af Amer 50 mL/min Low >[address] [facility] Comment on above: Non- GFR Calc GFR/1.73 sq M.predicted among non-blacks MDRD (S/P/Bld) [Vol rate/Area] 50 mL/min/{1.73_m2} Low >[address] [facility] Comment on above: Non- GFR Calc Glucose measurementOrdered B y: Delgado Amaro on 05-12-2024 Glucose [Mass/Vol] 97 mg/dL 74-106 [facility] Hematocrit Auto (Bld) [Volum e fraction]Ordered By: Delgado Amaro on 05-12-2024 Hematocrit (Bld) [Volume fraction] 31.4 % Low 37-[address] [facility] Hemoglobin measurementOrdere d By: Delgado Amaro on 05-12-2024 Hemoglobin (Bld) [Mass/Vol] 9.2 g/dL Low 12.0-15.[address] [facility] Laboratory - Chemistry and C hemistry - challengeOrdered By: Delgado Amaro on 05-12-2024 AST [Catalytic activity/Vol] 20 U/L 15-[address] [facility] MCV (mean corpuscular volume ) determinationOrdered By: Delgado Amaro on 05-12-2024 MCV (RBC) [Entitic vol] 81.3 fL 81-[address] [facility] Manual differential comment Jd (Bld) [Interp]Ordered By: Delgado Amaro on 05-12-2024 Differential Comment COMMENT [place] Comment on above: 1+ ANISO. Mean corpuscular hemoglobin (MCH) determinationOrdered By: Delgado Amaro on 05-12-2024 MCH (RBC) [Entitic mass] 23.8 pg Low 27.0-32.[address] [facility] Mean corpuscular hemoglobin concentration (MCHC) determinationOrdered By: Delgado Amaro on 05-12-2024 MCHC (RBC) [Mass/Vol] 29.3 g/dL Low 32-36 [facility] Mean platelet volume determi nationOrdered By: Delgado Amaro on 05-12-2024 Platelet mean volume (Bld) [Entitic vol] 9.5 fL 6.2-12.[address] [facility] Platelet countOrdered By: Kade Amaro on 05-12-2024 Platelets (Bld) [#/Vol] 164 10*3/uL 150-[address] [facility] Potassium measurementOrdered By: Delgado Amaro on 05-12-2024 Potassium [Moles/Vol] 3.6 mmol/L 3.5-5.1 [facility] RBC Auto (Bld) [#/Vol]Ordere d By: Delgado Amaro on 05-12-2024 RBC (Bld) [#/Vol] 3.86 10*6/uL Low 4.2-5.4 [facility] Serum anion gap measurementO rdered By: Delgado Amaro on 05-12-2024 Anion gap [Moles/Vol] 7 mmol/L 5-15 [facility] Serum globulin measurementOr dered By: Delgado Amaro on 05-12-2024 Globulin (S) [Mass/Vol] 3.8 g/dL 2.2-4.[address] [facility] Serum or plasma alanine sousa otransferase (ALT) measurementOrdered By: Delgado Amaro on 05-12-2024 ALT [Catalytic activity/Vol] 14 U/L 13-[address] [facility] Serum or plasma albumin kay urement (mass/volume)Ordered By: Delgado Amaro on 05-12-2024 Albumin [Mass/Vol] 2.6 g/dL Low 3.2-5.0 [facility] Serum or plasma alkaline radha sphatase measurementOrdered By: Delgado Amaro on 05-12-2024 ALP [Catalytic activity/Vol] 109 U/L 45-[address] [facility] Serum or plasma calcium kay urement (mass/volume)Ordered By: Delgado Amaro on 05-12-2024 Calcium [Mass/Vol] 9.0 mg/dL 8.5-10.1 [facility] Serum or plasma creatinine m easurement (mass/volume)Ordered By: Delgado Amaro on 05-12-2024 Creatinine [Mass/Vol] 1.13 mg/dL High 0.55-1.02 [facility] Comment on above: The validity of the calculated GFR & GFRAA in patients over 70 years has not been determined. Clinical correlation is essential. Serum or plasma urea nitroge n measurement (mass/volume)Ordered By: Delgado Amaro on 05-12-2024 Urea nitrogen [Mass/Vol] 30 mg/dL High 7-[address] [facility] Sodium levelOrdered By: Dimitry Amaro on 05-12-2024 Sodium [Moles/Vol] 140 mmol/L 136-145 [facility] Total proteinOrdered By: Bill Amaro on 05-12-2024 Protein [Mass/Vol] 6.4 g/dL 6.4-8.2 [facility] Vitamin D,25 Hydroxyon 05-12 Vitamin D 25-OH 41.0 ng/mL Normal [facility] Comment on above: Result Comment: Ele min D 25(OH) Status Range Deficiency <20 ng/mL (50nmol/L) Insufficiency 20 - 30 ng/mL (50 - 75 nmol/L) Sufficiency 30 - 100 ng/mL (75 - 250 nmol/L) Toxicity >100 ng/mL (>250 nmol/L) Performed By: #### L 100.0500, L506.1000, L500.4050, L503.6620, L100.4500 ####[facility] [address] [place], [address] White blood cell (WBC) count Ordered By: Delgado Amaro on 05-12-2024 WBC (Bld) [#/Vol] 5.6 10*3/uL 4.4-11.0 [facility] Gastroenterology Visit Repor ton 04-28-2024 Gastroenterology Visit Report Normal [facility] CBC-Complete Blood Cnt No Di ffon 04-14-2024 Erythrocyte distribution width (RBC) [Ratio] 16.0 % High 11.6-14.[address] [facility] Comment on above: Performed By: #### L 503.6075, L503.6150, L503.6550, L100.0500 ####[facility] [address] [place], [address] Hematocrit (Bld) [Volume fraction] 26.3 % Low 37-[address] [facility] Comment on above: Performed By: #### L 503.6075, L503.6150, L503.6550, L100.0500 ####[facility] [address] [place], [address] Hemoglobin (Bld) [Mass/Vol] 7.7 g/dL Low 12.0-15.[address] [facility] Comment on above: Performed By: #### L 503.6075, L503.6150, L503.6550, L100.0500 ####[facility] [address] [place], [address] MCH (RBC) [Entitic mass] 22.8 pg Low 27.0-32.[address] [facility] Comment on above: Performed By: #### L 503.6075, L503.6150, L503.6550, L100.0500 ####[facility] [address] [place], [address] MCHC (RBC) [Mass/Vol] 29.3 g/dL Low 32-36 [facility] Comment on above: Performed By: #### L 503.6075, L503.6150, L503.6550, L100.0500 ####[facility] [address] [place], [address] MCV (RBC) [Entitic vol] 78.0 fL Low 81-[address] [facility] Comment on above: Performed By: #### L 503.6075, L503.6150, L503.6550, L100.0500 ####[facility] [address] [place], [address] Platelet mean volume (Bld) [Entitic vol] 10.0 fL Normal 6.2-12.[address] [facility] Comment on above: Performed By: #### L 503.6075, L503.6150, L503.6550, L100.0500 ####[facility] [address] [place], [address] Platelets (Bld) [#/Vol] 225 10*3/uL Normal 150-[address] [facility] Comment on above: Performed By: #### L 503.6075, L503.6150, L503.6550, L100.0500 ####[facility] [address] [place], [address] RBC (Bld) [#/Vol] 3.37 10*6/uL Low 4.2-5.4 [facility] Comment on above: Performed By: #### L 503.6075, L503.6150, L503.6550, L100.0500 ####[facility] [address] [place], [address] RDW SD 45.4 fl High 35.1-43.[address] [facility] Comment on above: Performed By: #### L 503.6075, L503.6150, L503.6550, L100.0500 ####[facility] [address] [place], [place], [address] WBC (Bld) [#/Vol] 7.3 10*3/uL Normal 4.4-11.0 [facility] Comment on above: Performed By: #### L 503.6075, L503.6150, L503.6550, L100.0500 ####[facility] [address] [place], [address] Erythrocyte distribution wid th ratioOrdered By: April Mullen on 04-14-2024 Erythrocyte distribution width (RBC) [Ratio] 16.0 % High 11.6-14.[address] [facility] Erythrocyte distribution wid th standard deviationOrdered By: April Mullen on 04-14-2024 Erythrocyte distribution width (RBC) [Entitic vol] 45.4 fL High 35.1-43.[address] [facility] Ferritinon 04-14-2024 Ferritin [Mass/Vol] 162 ng/mL Normal [facility] Comment on above: Order Comment: 503.2 Performed By: #### L 503.6075, L503.6150, L503.6550, L100.0500 ####[facility] [address] [place], [place], [id number] Ferritin measurementOrdered By: April Mullen on 04-14-2024 Ferritin [Mass/Vol] 162 ng/mL [facility] Hematocrit Auto (Bld) [Volum e fraction]Ordered By: April Mullen on 04-14-2024 Hematocrit (Bld) [Volume fraction] 26.3 % Low 37-[address] [facility] Hemoglobin measurementOrdere d By: April Mullen on 04-14-2024 Hemoglobin (Bld) [Mass/Vol] 7.7 g/dL Low 12.0-15.[address] [facility] Ironon 01-06-2025 Iron [Mass/Vol] 17 ug/dL Low 50-[address] [facility] Comment on above: Order Comment: 503.2 Performed By: #### L 503.6075, L503.6150, L503.6550, L100.0500 ####[facility] [address] [place], [address] Iron (Unsp spec) [Mass/Mass] Ordered By: April Mullen on 04-14-2024 Iron [Mass/Vol] 17 ug/dL Low 50-[address] [facility] Iron Binding Capacity,Totalo n 04-14-2024 TIBC 286 ug/dL Normal 250-[address] [facility] Comment on above: Order Comment: 503.2 Performed By: #### L 503.6075, L503.6150, L503.6550, L100.0500 ####[facility] [address] [place], [place], [phone](560) MCV (mean corpuscular volume ) determinationOrdered By: April Mullen on 04-14-2024 MCV (RBC) [Entitic vol] 78.0 fL Low 81-[address] [facility] Mean corpuscular hemoglobin (MCH) determinationOrdered By: April Mullen on 04-14-2024 MCH (RBC) [Entitic mass] 22.8 pg Low 27.0-32.[address] [facility] Mean corpuscular hemoglobin concentration (MCHC) determinationOrdered By: April Mullen on 04-14-2024 MCHC (RBC) [Mass/Vol] 29.3 g/dL Low 32-36 [facility] Mean platelet volume determi nationOrdered By: April Mullen on 04-14-2024 Platelet mean volume (Bld) [Entitic vol] 10.0 fL 6.2-12.[address] [facility] Platelet countOrdered By: Darvin Mullen on 04-14-2024 Platelets (Bld) [#/Vol] 225 10*3/uL 150-[address] [facility] RBC Auto (Bld) [#/Vol]Ordere d By: April Mullen on 04-14-2024 RBC (Bld) [#/Vol] 3.37 10*6/uL Low 4.2-5.4 [facility] TIBCOrdered By: April Mullen on 04-14-2024 Total Iron Binding Capacity 286 ug/dL 250-[address] [facility] White blood cell (WBC) count Ordered By: April Mullen on 04-14-2024 WBC (Bld) [#/Vol] 7.3 10*3/uL 4.4-11.0 [facility] Automated blood erythrocyte countOrdered By: April Mullen on 04-07-2024 RBC (Bld) [#/Vol] 3.28 10*6/uL Low 4.2-5.4 [facility] Comment on above: Order Comment: 503-2 Performed By: #### L 100.0500, BTS ####[facility] [address] [place], [place], [address] Automated blood hematocrit ( percentage)Ordered By: April Mullen on 04-07-2024 Hematocrit (Bld) [Volume fraction] 25.6 % Low 37-[address] [facility] Comment on above: Order Comment: 503-2 Performed By: #### L 100.0500, BTS ####[facility] [address] [place], [place], [id number] CBC-Complete Blood Cnt No Di ffon 04-07-2024 RDW SD 44.5 fl High 35.1-43.[address] [facility] Comment on above: Order Comment: 503-2 Performed By: #### L 100.0500, BTS ####[facility] [address] [place], [place], [address] Erythrocyte distribution wid th ratioOrdered By: April Mullen on 04-07-2024 Erythrocyte distribution width (RBC) [Ratio] 15.7 % High 11.6-14.[address] [facility] Comment on above: Order Comment: 503-2 Performed By: #### L 100.0500, BTS ####[facility] [address] [place], [address] Erythrocyte distribution wid th standard deviationOrdered By: April Mullen on 04-07-2024 Erythrocyte distribution width (RBC) [Entitic vol] 44.5 fL High 35.1-43.[address] [facility] Hemoglobin measurementOrdere d By: April Mullen on 04-07-2024 Hemoglobin (Bld) [Mass/Vol] 7.5 g/dL Low 12.0-15.[address] [facility] Comment on above: Order Comment: 503-2 Performed By: #### L 100.0500, BTS ####[facility] [address] [place], [address] MCV (mean corpuscular volume ) determinationOrdered By: April Mullen on 04-07-2024 MCV (RBC) [Entitic vol] 78.0 fL Low 81-[address] [facility] Comment on above: Order Comment: 503-2 Performed By: #### L 100.0500, BTS ####[facility] [address] [place], [address] Mean corpuscular hemoglobin (MCH) determinationOrdered By: April Mullen on 04-07-2024 MCH (RBC) [Entitic mass] 22.9 pg Low 27.0-32.[address] [facility] Comment on above: Order Comment: 503-2 Performed By: #### L 100.0500, BTS ####[facility] [address] [place], [address] Mean corpuscular hemoglobin concentration (MCHC) determinationOrdered By: April Mullen on 04-07-2024 MCHC (RBC) [Mass/Vol] 29.3 g/dL Low 32-36 [facility] Comment on above: Order Comment: 503-2 Performed By: #### L 100.0500, BTS ####[facility] [address] [place], [address] Mean platelet volume determi nationOrdered By: April Mullen on 04-07-2024 Platelet mean volume (Bld) [Entitic vol] 10.1 fL Normal 6.2-12.[address] [facility] Comment on above: Order Comment: 503-2 Performed By: #### L 100.0500, BTS ####[facility] [address] [place], [address] Platelet countOrdered By: Darvin Mullen on 04-07-2024 Platelets (Bld) [#/Vol] 203 10*3/uL Normal 150-[address] [facility] Comment on above: Order Comment: 503-2 Performed By: #### L 100.0500, BTS ####[facility] [address] [place], [address] Type AND Screenon 04-07-2024 Ab SCREEN GEL Negative Normal [facility] Comment on above: Order Comment: 503-2 A Performed By: #### L 100.0500, BTS ####[facility] [address] [place], [address] White blood cell (WBC) count Ordered By: April Mullen on 04-07-2024 WBC (Bld) [#/Vol] 6.7 10*3/uL Normal 4.4-11.0 [facility] Comment on above: Order Comment: 503-2 Performed By: #### L 100.0500, BTS ####[facility] [address] [place], [address] CBC-Complete Blood Cnt No Di ffon 04-03-2024 Erythrocyte distribution width (RBC) [Ratio] 15.7 % High 11.6-14.[address] [facility] Comment on above: Order Comment: 503.2 Performed By: #### L 100.0500 ####[facility] [address] [place], [address] Hematocrit (Bld) [Volume fraction] 24.8 % Low 37-[address] [facility] Comment on above: Order Comment: 503.2 Performed By: #### L 100.0500 ####[facility] [address] [place], [address] Hemoglobin (Bld) [Mass/Vol] 7.2 g/dL Low 12.0-15.[address] [facility] Comment on above: Order Comment: 503.2 Performed By: #### L 100.0500 ####[facility] [address] [place], [address] MCH (RBC) [Entitic mass] 22.9 pg Low 27.0-32.[address] [facility] Comment on above: Order Comment: 503.2 Performed By: #### L 100.0500 ####[facility] [address] [place], [address] MCHC (RBC) [Mass/Vol] 29.0 g/dL Low 32-36 [facility] Comment on above: Order Comment: 503.2 Performed By: #### L 100.0500 ####[facility] [address] [place], [address] MCV (RBC) [Entitic vol] 78.7 fL Low 81-[address] [facility] Comment on above: Order Comment: 503.2 Performed By: #### L 100.0500 ####[facility] [address] [place], [address] Platelet mean volume (Bld) [Entitic vol] 9.8 fL Normal 6.2-12.[address] [facility] Comment on above: Order Comment: 503.2 Performed By: #### L 100.0500 ####[facility] [address] [place], [address] Platelets (Bld) [#/Vol] 155 10*3/uL Normal 150-[address] [facility] Comment on above: Order Comment: 503.2 Performed By: #### L 100.0500 ####[facility] [address] [place], [address] RBC (Bld) [#/Vol] 3.15 10*6/uL Low 4.2-5.4 [facility] Comment on above: Order Comment: 503.2 Performed By: #### L 100.0500 ####[facility] [address] [place], [address] RDW SD 44.7 fl High 35.1-43.[address] [facility] Comment on above: Order Comment: 503.2 Performed By: #### L 100.0500 ####[facility] [address] [place], [address] WBC (Bld) [#/Vol] 5.9 10*3/uL Normal 4.4-11.0 [facility] Comment on above: Order Comment: 503.2 Performed By: #### L 100.0500 ####[facility] [address] [place], [address] Erythrocyte distribution wid th ratioOrdered By: April Mullen on 04-03-2024 Erythrocyte distribution width (RBC) [Ratio] 15.7 % High 11.6-14.[address] [facility] Erythrocyte distribution wid th standard deviationOrdered By: April Mullen on 04-03-2024 Erythrocyte distribution width (RBC) [Entitic vol] 44.7 fL High 35.1-43.[address] [facility] Hematocrit Auto (Bld) [Volum e fraction]Ordered By: April Mullen on 04-03-2024 Hematocrit (Bld) [Volume fraction] 24.8 % Low 37-[address] [facility] Hemoglobin measurementOrdere d By: April Mullen on 04-03-2024 Hemoglobin (Bld) [Mass/Vol] 7.2 g/dL Low 12.0-15.[address] [facility] MCV (mean corpuscular volume ) determinationOrdered By: April Mullen on 04-03-2024 MCV (RBC) [Entitic vol] 78.7 fL Low 81-[address] [facility] Mean corpuscular hemoglobin (MCH) determinationOrdered By: April Mullen on 04-03-2024 MCH (RBC) [Entitic mass] 22.9 pg Low 27.0-32.[address] [facility] Mean corpuscular hemoglobin concentration (MCHC) determinationOrdered By: April Mullen on 04-03-2024 MCHC (RBC) [Mass/Vol] 29.0 g/dL Low 32-36 [facility] Mean platelet volume determi nationOrdered By: April Mullen on 04-03-2024 Platelet mean volume (Bld) [Entitic vol] 9.8 fL 6.2-12.[address] [facility] Platelet countOrdered By: Darvin Mullen on 04-03-2024 Platelets (Bld) [#/Vol] 155 10*3/uL 150-[address] [facility] RBC Auto (Bld) [#/Vol]Ordere d By: April Mullen on 04-03-2024 RBC (Bld) [#/Vol] 3.15 10*6/uL Low 4.2-5.4 [facility] White blood cell (WBC) count Ordered By: April Mullen on 04-03-2024 WBC (Bld) [#/Vol] 5.9 10*3/uL 4.4-11.0 [facility] 12 Lead EKGon 03-28-2024 12 Lead EKG Normal [facility] Basic Metabolic Profile (BMP )on 03-28-2024 BUN/CRE 20.2 RATIO High 01-[address] [facility] Comment on above: Order Comment: 503.2 Performed By: #### L 100.0500, L500.2500, L500.4100, L501.9985 ####[facility] [address] [place], [place], [id number] CA,Total 8.8 mg/dL Normal 8.5-10.[address] [facility] Comment on above: Order Comment: 503.2 Performed By: #### L 100.0500, L500.2500, L500.4100, L501.9985 ####[facility] [address] [place], [address] Chloride [Moles/Vol] 104 mmol/L Normal 98-107 [place] Comment on above: Order Comment: 503.2 Performed By: #### L 100.0500, L500.2500, L500.4100, L501.9985 ####[facility] [address] [place], [address] CO2 [Moles/Vol] 28.0 mmol/L Normal 21.0-32.[address] [facility] Comment on above: Order Comment: 503.2 Performed By: #### L 100.0500, L500.2500, L500.4100, L501.9985 ####[facility] [address] [place], [address] Creatinine [Mass/Vol] 1.09 mg/dL High 0.55-1.02 [facility] Comment on above: Order Comment: 503.2 Result Comment: The validity of the calculated GFR GFRAA in patients over70 years has not been determined. Clinical correlation isessential. Performed By: #### L 100.0500, L500.2500, L500.4100, L501.9985 ####[facility] [address] [place], [address] EST GFR - AA 63 mL/min Normal >[address] [facility] Comment on above: Order Comment: 503.2 Result Comment: Afri can Malagasy GFR Calc Performed By: #### L 100.0500, L500.2500, L500.4100, L501.9985 ####[facility] [address] [place], [address] GAP 5 Normal 5-[address] [facility] Comment on above: Order Comment: 503.2 Performed By: #### L 100.0500, L500.2500, L500.4100, L501.9985 ####[facility] [address] [place], [address] GFR/1.73 sq M.predicted among non-blacks MDRD (S/P/Bld) [Vol rate/Area] 52 mL/min/{1.73_m2} Low >[address] [facility] Comment on above: Order Comment: 503.2 Result Comment: Non- GFR Calc Performed By: #### L 100.0500, L500.2500, L500.4100, L501.9985 ####[facility] [address] [place], [address] Glucose [Mass/Vol] 112 mg/dL High 74-106 [facility] Comment on above: Order Comment: 503.2 Result Comment: Fast ing Glucose result from 100 to 125 mg/dLsuggests IMPAIRED HOMEOSTASIS per A.D.A. criteria. Performed By: #### L 100.0500, L500.2500, L500.4100, L501.9985 ####[facility] [address] [place], [address] Potassium [Moles/Vol] 3.9 mmol/L Normal 3.5-5.1 [facility] Comment on above: Order Comment: 503.2 Performed By: #### L 100.0500, L500.2500, L500.4100, L501.9985 ####[facility] [address] [place], [address] Sodium [Moles/Vol] 136 mmol/L Normal 136-145 [facility] Comment on above: Order Comment: 503.2 Performed By: #### L 100.0500, L500.2500, L500.4100, L501.9985 ####[facility] [address] [place], [address] Urea nitrogen [Mass/Vol] 22 mg/dL High 7-[address] [facility] Comment on above: Order Comment: 503.2 Performed By: #### L 100.0500, L500.2500, L500.4100, L501.9985 ####[facility] [address] [place], [address] Bilirubin directOrdered By: Sujatha Hebert on 03-28-2024 Bilirubin.direct [Mass/Vol] 0.12 mg/dL 0.00-0.[address] [facility] Bilirubin, totalOrdered By: Sujatha Hebert on 03-28-2024 Bilirubin [Mass/Vol] 0.20 mg/dL 0.20-1.00 [place] Comment on above: For patients on eltr ombopag therapy, use of Dimension [place] TBIL is not recommended. Blood urea nitrogen (BUN)/cr eatinine ratioOrdered By: Dominic Lim on 03-28-2024 Urea nitrogen/Creatinine [Mass ratio] 20.2 mg/mg High 01-[address] [facility] CBC-Complete Blood Cnt No Di ffon 03-28-2024 Erythrocyte distribution width (RBC) [Ratio] 15.9 % High 11.6-14.[address] [facility] Comment on above: Order Comment: 503.2 Performed By: #### L 100.0500, L500.2500, L500.4100, L501.9985 ####[facility] [address] [place], [address] Hematocrit (Bld) [Volume fraction] 23.3 % Low 37-[address] [facility] Comment on above: Order Comment: 503.2 Performed By: #### L 100.0500, L500.2500, L500.4100, L501.9985 ####[facility] [address] [place], [address] Hemoglobin (Bld) [Mass/Vol] 6.9 g/dL Low 12.0-15.[address] [facility] Comment on above: Order Comment: 503.2 Performed By: #### L 100.0500, L500.2500, L500.4100, L501.9985 ####[facility] [address] [place], [address] MCH (RBC) [Entitic mass] 23.2 pg Low 27.0-32.[address] [facility] Comment on above: Order Comment: 503.2 Performed By: #### L 100.0500, L500.2500, L500.4100, L501.9985 ####[facility] [address] [place], [address] MCHC (RBC) [Mass/Vol] 29.6 g/dL Low 32-36 [facility] Comment on above: Order Comment: 503.2 Performed By: #### L 100.0500, L500.2500, L500.4100, L501.9985 ####[facility] [address] [place], [address] MCV (RBC) [Entitic vol] 78.5 fL Low 81-[address] [facility] Comment on above: Order Comment: 503.2 Performed By: #### L 100.0500, L500.2500, L500.4100, L501.9985 ####[facility] [address] [place], [address] Platelet mean volume (Bld) [Entitic vol] 9.7 fL Normal 6.2-12.[address] [facility] Comment on above: Order Comment: 503.2 Performed By: #### L 100.0500, L500.2500, L500.4100, L501.9985 ####[facility] [address] [place], [address] Platelets (Bld) [#/Vol] 172 10*3/uL Normal 150-[address] [facility] Comment on above: Order Comment: 503.2 Performed By: #### L 100.0500, L500.2500, L500.4100, L501.9985 ####[facility] [address] [place], [address] RBC (Bld) [#/Vol] 2.97 10*6/uL Low 4.2-5.4 [facility] Comment on above: Order Comment: 503.2 Performed By: #### L 100.0500, L500.2500, L500.4100, L501.9985 ####[facility] [address] [place], [address] RDW SD 45.1 fl High 35.1-43.[address] [facility] Comment on above: Order Comment: 503.2 Performed By: #### L 100.0500, L500.2500, L500.4100, L501.9985 ####[facility] [address] [place], [address] WBC (Bld) [#/Vol] 5.4 10*3/uL Normal 4.4-11.0 [facility] Comment on above: Order Comment: 503.2 Performed By: #### L 100.0500, L500.2500, L500.4100, L501.9985 ####[facility] [address] [place], [address] Carbon dioxide measurementOr dered By: Dominic Lim on 03-28-2024 CO2 [Moles/Vol] 28.0 mmol/L 21.0-32.[address] [facility] Chloride measurementOrdered By: Dominic Lim on 03-28-2024 Chloride [Moles/Vol] 104 mmol/L 98-107 [facility] Summary on 03-28-2024 Emergency Department Summary Normal [facility] Erythrocyte distribution wid th ratioOrdered By: Dominic Lim on 03-28-2024 Erythrocyte distribution width (RBC) [Ratio] 15.9 % High 11.6-14.[address] [facility] Erythrocyte distribution wid th standard deviationOrdered By: Dominic Lim on 03-28-2024 Erythrocyte distribution width (RBC) [Entitic vol] 45.1 fL High 35.1-43.[address] [facility] Estimated glomerular filtrat ion rate (GFR) AmericanOrdered By: Dominic Lim on 03-28-2024 Estimated GFR (MDRD) Amer 63 mL/min >[address] [facility] Comment on above: GFR Calc Glomerular filtration rate ( GFR) estimationOrdered By: Dominic Lim on 03-28-2024 Estimated GFR (MDRD) Non-Af Amer 52 mL/min Low >[address] [facility] Comment on above: Non- GFR Calc Glucose measurementOrdered B y: Dominic Lim on 03-28-2024 Glucose [Mass/Vol] 112 mg/dL High 74-106 [facility] Comment on above: Fasting Glucose resu lt from 100 to 125 mg/dL suggests IMPAIRED HOMEOSTASIS per A.D.A. criteria. HH, Hemoglobin AND Hematocri ton 03-28-2024 Hematocrit (Bld) [Volume fraction] 23.3 % Low 37-[address] [facility] Comment on above: Performed By: #### L 100.0600 ####[facility] [address] [place], [address] Hemoglobin (Bld) [Mass/Vol] 7.1 g/dL Low 12.0-15.[address] [facility] Comment on above: Performed By: #### L 100.0600 ####[facility] [address] [place], [address] Hematocrit (Bld) [Volume fraction] 25.0 % Low [address] [facility] Comment on above: Performed By: #### L 100.0600, M100.7900, BTS ####[facility] [address] [place], [address] Hemoglobin (Bld) [Mass/Vol] 7.7 g/dL Low 12.0-15.[address] [facility] Comment on above: Performed By: #### L 100.0600, M100.7900, BTS ####[facility] [address] [place], [address] Hematocrit Auto (Bld) [Volum e fraction]Ordered By: Sujatha Hebert on 03-28-2024 Hematocrit (Bld) [Volume fraction] 23.3 % Low [address] [facility] Hematocrit Auto (Bld) [Volum e fraction]Ordered By: Dominic Lim on 12-20-2024 Hematocrit (Bld) [Volume fraction] 23.3 % Low 37-[address] [facility] Hemoglobin A1con 03-28-2024 HbA1c (Bld) [Mass fraction] 5.6 % Normal 3.8-5.[address] [facility] Comment on above: Order Comment: 503.2 Result Comment: Norm al < 5.7 % Prediabetic 5.7 - 6.4 % Diabetic >or= 6.5 % Please note range changes. Performed By: #### L 100.0500, L500.2500, L500.4100, L501.9985 ####[facility] [address] [place], [address] Hemoglobin A1c percentageOrd ered By: Dominic Lim on 03-28-2024 HbA1c (Bld) [Mass fraction] 5.6 % 3.8-5.[address] [facility] Comment on above: Normal < 5.7 % Predi abetic 5.7 - 6.4 % Diabetic >or= 6.5 % Please note range changes. Hemoglobin measurementOrdere d By: Sujatha Hebert on 03-28-2024 Hemoglobin (Bld) [Mass/Vol] 7.1 g/dL Low 12.0-15.[address] [facility] Hemoglobin measurementOrdere d By: Dominic Lim on 03-28-2024 Hemoglobin (Bld) [Mass/Vol] 6.9 g/dL Low 12.0-15.[address] [facility] High density lipoprotein (HD L) measurementOrdered By: Dominic Lim on 03-28-2024 Cholesterol in HDL [Mass/Vol] 58 mg/dL >[address] [facility] Comment on above: The drugs N-Acetylcy steine and Metamizole may falsely depress this assay. Reference Range HDL <40 mg/dL Low HDL Cholesterol HDL >or= 60 mg/dL High HDL Cholesterol L501.4020on 03-28-2024 TROPONIN-I HS 14 pg/mL Normal 3.0-54.[address] [facility] Comment on above: Order Comment: 'TROP ' Serial specimen #1, #2 or #3: 1 Result Comment: Kalli torres Note: New Test Units and Gender Specific Reference Ranges. For more information see Policy Stat Procedure [place] High Sensitivity Troponin (TNIH) and attachments. Performed By: #### L 500.3400, L501.2450, L501.4020 ####[facility] [address] [place], [place], [id number] Laboratory - Chemistry and C hemistry - challengeOrdered By: Sujatha Hebert on 03-28-2024 AST [Catalytic activity/Vol] 14 U/L Low 15-[address] [facility] Lipaseon 03-28-2024 Lipase [Catalytic activity/Vol] 18 U/L Normal 13-[address] [facility] Comment on above: Order Comment: 'TROP ' Serial specimen #1, #2 or #3: 1 Result Comment: Plea se note:LIPASE revised reference range effective 22.New Lipase methodology. Expected to produce lower valuesthan the previous assay method.NEW Reference Range: 13 - 75 U/L Performed By: #### L 500.3400, L501.2450, L501.4020 ####[facility] [address] [place], [place], [id number] Lipase measurementOrdered By : Sujatha Hebert on 03-28-2024 Lipase [Catalytic activity/Vol] 18 U/L 13-[address] [facility] Comment on above: Please note:LIPASE r evised reference range effective 22. New Lipase methodology. Expected to produce lower values than the previous assay method. NEW Reference Range: 13 - 75 U/L Lipid Profileon 03-28-2024 Cholesterol [Mass/Vol] 140 mg/dL Normal 200 [facility] Comment on above: Order Comment: 503.2 Result Comment: <200 mg/dL Desirable 200-240 mg/dL Borderline >240 mg/dL High Risk Performed By: #### L 100.0500, L500.2500, L500.4100, L501.9985 ####[facility] [address] [place], [place], [id number] Cholesterol in HDL [Mass/Vol] 58 mg/dL Normal [facility] Comment on above: Order Comment: 503.2 Result Comment: The drugs N-Acetylcysteine and Metamizole may falselydepress this assay. Reference Range HDL <40 mg/dL Low HDL Cholesterol HDL >or= 60 mg/dL High HDL Cholesterol Performed By: #### L 100.0500, L500.2500, L500.4100, L501.9985 ####[facility] [address] [place], [address] Cholesterol in LDL [Mass/Vol] 62 mg/dL Normal 0-[address] [facility] Comment on above: Order Comment: 503.2 Performed By: #### L 100.0500, L500.2500, L500.4100, L501.9985 ####[facility] [address] [place], [address] Cholesterol in VLDL [Mass/Vol] 20 mg/dL Normal 5-[address] [facility] Comment on above: Order Comment: 503.2 Performed By: #### L 100.0500, L500.2500, L500.4100, L501.9985 ####[facility] [address] [place], [address] Triglyceride [Mass/Vol] 98 mg/dL Normal [facility] Comment on above: Order Comment: 503.2 Result Comment: The drugs N-Acetylcysteine and Metamizole may falselydepress this assay.Serum Triglycerides Reference Interval Normal <150 mg/dL Borderline high 150 - 199 mg/dL High 200 - 499 mg/dL Very High > or = 500 mg/dL Performed By: #### L 100.0500, L500.2500, L500.4100, L501.9985 ####[facility] [address] [place], [address] Liver Profileon 03-28-2024 Albumin [Mass/Vol] 2.4 g/dL Low 3.2-5.0 [facility] Comment on above: Order Comment: 'TROP ' Serial specimen #1, #2 or #3: 1 Performed By: #### L 500.3400, L501.2450, L501.4020 ####[facility] [address] [place], [address] ALK P 126 U/L High 45-[address] [facility] Comment on above: Order Comment: 'TROP ' Serial specimen #1, #2 or #3: 1 Performed By: #### L 500.3400, L501.2450, L501.4020 ####[facility] [address] [place], [address] ALT [Catalytic activity/Vol] 13 U/L Normal 13-[address] [facility] Comment on above: Order Comment: 'TROP ' Serial specimen #1, #2 or #3: 1 Performed By: #### L 500.3400, L501.2450, L501.4020 ####[facility] [address] [place], [address] AST [Catalytic activity/Vol] 14 U/L Low 15-[address] [facility] Comment on above: Order Comment: 'TROP ' Serial specimen #1, #2 or #3: 1 Performed By: #### L 500.3400, L501.2450, L501.4020 ####[facility] [address] [place], [address] Bilirubin [Mass/Vol] 0.20 mg/dL Normal 0.20-1.00 [place] Comment on above: Order Comment: 'TROP ' Serial specimen #1, #2 or #3: 1 Result Comment: For patients on eltrombopag therapy, use of Dimension [place] TBIL is not recommended. Performed By: #### L 500.3400, L501.2450, L501.4020 ####[facility] [address] [place], [address] Bilirubin.direct [Mass/Vol] 0.12 mg/dL Normal 0.00-0.[address] [facility] Comment on above: Order Comment: 'TROP ' Serial specimen #1, #2 or #3: 1 Performed By: #### L 500.3400, L501.2450, L501.4020 ####[facility] [address] [place], [address] Globulin (S) [Mass/Vol] 3.5 g/dL Normal 2.2-4.[address] [facility] Comment on above: Order Comment: 'TROP ' Serial specimen #1, #2 or #3: 1 Performed By: #### L 500.3400, L501.2450, L501.4020 ####[facility] [address] [place], [address] T PROT 5.9 g/dL Low 6.4-8.[address] [facility] Comment on above: Order Comment: 'TROP ' Serial specimen #1, #2 or #3: 1 Performed By: #### L 500.3400, L501.2450, L501.4020 ####[facility] [address] [place], [place], [id number] Low density lipoprotein (LDL ) cholesterol measurementOrdered By: Dominic Lim on 03-28-2024 Cholesterol in LDL [Mass/Vol] 62 mg/dL 0-[address] [facility] Lower GI hemoglobin IA Ql (S tl)Ordered By: Sujatha Hebert on 03-28-2024 Stool Occult Blood (MOOSE) Positive Abnormal [facility] Stool Occult Blood (MOOSE) Positive Abnormal [facility] MCV (mean corpuscular volume ) determinationOrdered By: Dominic Lim on 03-28-2024 MCV (RBC) [Entitic vol] 78.5 fL Low 81-[address] [facility] Mean corpuscular hemoglobin (MCH) determinationOrdered By: Dominic Lim on 03-28-2024 MCH (RBC) [Entitic mass] 23.2 pg Low 27.0-32.[address] [facility] Mean corpuscular hemoglobin concentration (MCHC) determinationOrdered By: Dominic Lim on 03-28-2024 MCHC (RBC) [Mass/Vol] 29.6 g/dL Low 32-36 [facility] Mean platelet volume determi nationOrdered By: Dominic Lim on 03-28-2024 Platelet mean volume (Bld) [Entitic vol] 9.7 fL 6.2-12.[address] [facility] Platelet countOrdered By: Fidelia Lim on 03-28-2024 Platelets (Bld) [#/Vol] 172 10*3/uL 150-[address] [facility] Potassium measurementOrdered By: Dominic Lim on 03-28-2024 Potassium [Moles/Vol] 3.9 mmol/L 3.5-5.1 [facility] RBC Auto (Bld) [#/Vol]Ordere d By: Dominic Lim on 03-28-2024 RBC (Bld) [#/Vol] 2.97 10*6/uL Low 4.2-5.4 [facility] Serum anion gap measurementO rdered By: Dominic Lim on 03-28-2024 Anion gap [Moles/Vol] 5 mmol/L 5-15 [facility] Serum globulin measurementOr dered By: Sujatha Hebert on 03-28-2024 Globulin (S) [Mass/Vol] 3.5 g/dL 2.2-4.[address] [facility] Serum or plasma alanine sousa otransferase (ALT) measurementOrdered By: Sujatha Hebert on 03-28-2024 ALT [Catalytic activity/Vol] 13 U/L 13-[address] [facility] Serum or plasma albumin kay urement (mass/volume)Ordered By: Sujatha Hebert on 03-28-2024 Albumin [Mass/Vol] 2.4 g/dL Low 3.2-5.0 [facility] Serum or plasma alkaline radha sphatase measurementOrdered By: Sujatha Hebert on 03-28-2024 ALP [Catalytic activity/Vol] 126 U/L High 45-[address] [facility] Serum or plasma calcium kay urement (mass/volume)Ordered By: Dominic Lim on 03-28-2024 Calcium [Mass/Vol] 8.8 mg/dL 8.5-10.1 [facility] Serum or plasma cholesterol measurement (mass/volume)Ordered By: Dominic Lim on 03-28-2024 Cholesterol [Mass/Vol] 140 mg/dL <200 [facility] Comment on above: <200 mg/dL Desirable 200-240 mg/dL Borderline >240 mg/dL High Risk Serum or plasma creatinine m easurement (mass/volume)Ordered By: Dominic Lim on 03-28-2024 Creatinine [Mass/Vol] 1.09 mg/dL High 0.55-1.02 [facility] Comment on above: The validity of the calculated GFR & GFRAA in patients over 70 years has not been determined. Clinical correlation is essential. Serum or plasma urea nitroge n measurement (mass/volume)Ordered By: Dominic Lim on 03-28-2024 Urea nitrogen [Mass/Vol] 22 mg/dL High 7-[address] [facility] Sodium levelOrdered By: Dominic Lim on 03-28-2024 Sodium [Moles/Vol] 136 mmol/L 136-145 [facility] Stool Occult Blood iFOBon STOB Positive Normal [facility] Comment on above: Performed By: #### L 100.0600, M100.7900, BTS ####[facility] [address] [place], [place], [id number] Total proteinOrdered By: Emanuel Hebert on 03-28-2024 Protein [Mass/Vol] 5.9 g/dL Low 6.4-8.2 [facility] Triglycerides measurementOrd ered By: Dominic Lim on 03-28-2024 Triglyceride [Mass/Vol] 98 mg/dL <[address] [facility] Comment on above: The drugs N-Acetylcy steine and Metamizole may falsely depress this assay.Serum Triglycerides Reference Interval Normal <150 mg/dL Borderline high 150 - 199 mg/dL High 200 - 499 mg/dL Very High > or = 500 mg/dL Troponin IOrdered By: Rica Hebert on 03-28-2024 Troponin I High Sensitivity 14 pg/mL 3.0-54.[address] [facility] Comment on above: Please Note: [place] t Units and Gender Specific Reference Ranges. For more information see Policy Stat Procedure [place] High Sensitivity Troponin (TNIH) and attachments. Type AND Screenon 03-28-2024 ABO and Rh group Nom (Bld) Blood group O Rh(D) positive Normal [facility] Comment on above: Order Comment: A Performed By: #### L 100.0600, M100.7900, BTS ####[facility] [address] [place], [address] Very low density lipoprotein (VLDL) cholesterol measurementOrdered By: Dominic Lim on 03-28-2024 VLDL Cholesterol 20 mg/dL 5-[address] [facility] White blood cell (WBC) count Ordered By: Dominic Lim on 03-28-2024 WBC (Bld) [#/Vol] 5.4 10*3/uL 4.4-11.0 [facility] Basic Metabolic Profile (BMP )on 02-27-2024 BUN/CRE 21.2 RATIO High 01-[address] [facility] Comment on above: Order Comment: 503.2 Performed By: #### L 100.0500, L500.2500 ####[facility] [address] [place], [address] CA,Total 8.6 mg/dL Normal 8.5-10.[address] [facility] Comment on above: Order Comment: 503.2 Performed By: #### L 100.0500, L500.2500 ####[facility] [address] [place], [address] Chloride [Moles/Vol] 104 mmol/L Normal 98-107 [place] Comment on above: Order Comment: 503.2 Performed By: #### L 100.0500, L500.2500 ####[facility] [address] [place], [address] CO2 [Moles/Vol] 28.0 mmol/L Normal 21.0-32.[address] [facility] Comment on above: Order Comment: 503.2 Performed By: #### L 100.0500, L500.2500 ####[facility] [address] [place], [address] Creatinine [Mass/Vol] 1.13 mg/dL High 0.55-1.02 [facility] Comment on above: Order Comment: 503.2 Result Comment: The validity of the calculated GFR GFRAA in patients over70 years has not been determined. Clinical correlation isessential. Performed By: #### L 100.0500, L500.2500 ####[facility] [address] [place], [address] EST GFR - AA 60 mL/min Normal >[address] [facility] Comment on above: Order Comment: 503.2 Result Comment: Afri can Malagasy GFR Calc Performed By: #### L 100.0500, L500.2500 ####[facility] [address] [place], [address] GAP 7 Normal 5-[address] [facility] Comment on above: Order Comment: 503.2 Performed By: #### L 100.0500, L500.2500 ####[facility] [address] [place], [address] GFR/1.73 sq M.predicted among non-blacks MDRD (S/P/Bld) [Vol rate/Area] 50 mL/min/{1.73_m2} Low >[address] [facility] Comment on above: Order Comment: 503.2 Result Comment: Non- GFR Calc Performed By: #### L 100.0500, L500.2500 ####[facility] [address] [place], [address] Glucose [Mass/Vol] 106 mg/dL Normal 74-106 [facility] Comment on above: Order Comment: 503.2 Result Comment: Fast ing Glucose result from 100 to 125 mg/dLsuggests IMPAIRED HOMEOSTASIS per A.D.A. criteria. Performed By: #### L 100.0500, L500.2500 ####[facility] [address] [place], [address] Potassium [Moles/Vol] 3.9 mmol/L Normal 3.5-5.1 [facility] Comment on above: Order Comment: 503.2 Performed By: #### L 100.0500, L500.2500 ####[facility] [address] [place], [address] Sodium [Moles/Vol] 139 mmol/L Normal 136-145 [facility] Comment on above: Order Comment: 503.2 Performed By: #### L 100.0500, L500.2500 ####[facility] [address] [place], [address] Urea nitrogen [Mass/Vol] 24 mg/dL High 7-[address] [facility] Comment on above: Order Comment: 503.2 Performed By: #### L 100.0500, L500.2500 ####[facility] [address] [place], [address] Blood urea nitrogen (BUN)/cr eatinine ratioOrdered By: Dominic Lim on 02-27-2024 Urea nitrogen/Creatinine [Mass ratio] 21.2 mg/mg High - [facility] CBC-Complete Blood Cnt No Di ffon 02-27-2024 Erythrocyte distribution width (RBC) [Ratio] 15.6 % High 11.6-14.[address] [facility] Comment on above: Order Comment: 503.2 Performed By: #### L 100.0500, L500.2500 ####[facility] [address] [place], [address] Hematocrit (Bld) [Volume fraction] 26.7 % Low 37-[address] [facility] Comment on above: Order Comment: 503.2 Performed By: #### L 100.0500, L500.2500 ####[facility] [address] [place], [address] Hemoglobin (Bld) [Mass/Vol] 7.8 g/dL Low 12.0-15.[address] [facility] Comment on above: Order Comment: 503.2 Performed By: #### L 100.0500, L500.2500 ####[facility] [address] [place], [address] MCH (RBC) [Entitic mass] 23.9 pg Low 27.0-32.[address] [facility] Comment on above: Order Comment: 503.2 Performed By: #### L 100.0500, L500.2500 ####[facility] [address] [place], [address] MCHC (RBC) [Mass/Vol] 29.2 g/dL Low 32-36 [facility] Comment on above: Order Comment: 503.2 Performed By: #### L 100.0500, L500.2500 ####[facility] [address] [place], [address] MCV (RBC) [Entitic vol] 81.7 fL Normal 81-[address] [facility] Comment on above: Order Comment: 503.2 Performed By: #### L 100.0500, L500.2500 ####[facility] [address] [place], [address] Platelet mean volume (Bld) [Entitic vol] 9.7 fL Normal 6.2-12.[address] [facility] Comment on above: Order Comment: 503.2 Performed By: #### L 100.0500, L500.2500 ####[facility] [address] [place], [address] Platelets (Bld) [#/Vol] 196 10*3/uL Normal 150-[address] [facility] Comment on above: Order Comment: 503.2 Performed By: #### L 100.0500, L500.2500 ####[facility] [address] [place], [address] RBC (Bld) [#/Vol] 3.27 10*6/uL Low 4.2-5.4 [facility] Comment on above: Order Comment: 503.2 Performed By: #### L 100.0500, L500.2500 ####[facility] [address] [place], [address] RDW SD 46.1 fl High 35.1-43.[address] [facility] Comment on above: Order Comment: 503.2 Performed By: #### L 100.0500, L500.2500 ####[facility] [address], [address] WBC (Bld) [#/Vol] 6.3 10*3/uL Normal 4.4-11.0 [facility] Comment on above: Order Comment: 503.2 Performed By: #### L 100.0500, L500.2500 ####[facility] [address] [place], [address] Carbon dioxide measurementOr dered By: Dominic Lim on 02-27-2024 CO2 [Moles/Vol] 28.0 mmol/L 21.0-32.[address] [facility] Chloride measurementOrdered By: Dominic Lim on 02-27-2024 Chloride [Moles/Vol] 104 mmol/L 98-107 [place] Erythrocyte distribution wid th ratioOrdered By: Dominic Lim on 02-27-2024 Erythrocyte distribution width (RBC) [Ratio] 15.6 % High 11.6-14.[address] [facility] Erythrocyte distribution wid th standard deviationOrdered By: Dominic Lim on 02-27-2024 Erythrocyte distribution width (RBC) [Entitic vol] 46.1 fL High 35.1-43.[address] [facility] Estimated glomerular filtrat ion rate (GFR) AmericanOrdered By: Dominic Lim on 02-27-2024 Estimated GFR (MDRD) Amer 60 mL/min >[address] [facility] Comment on above: GFR Calc Glomerular filtration rate ( GFR) estimationOrdered By: Dominic Lim on 02-27-2024 Estimated GFR (MDRD) Non-Af Amer 50 mL/min Low >[address] [facility] Comment on above: Non- GFR Calc Glucose measurementOrdered B y: Dominic Lim on 02-27-2024 Glucose [Mass/Vol] 106 mg/dL 74-106 [facility] Comment on above: Fasting Glucose resu lt from 100 to 125 mg/dL suggests IMPAIRED HOMEOSTASIS per A.D.A. criteria. Hematocrit Auto (Bld) [Volum e fraction]Ordered By: Dominic Lim on 02-27-2024 Hematocrit (Bld) [Volume fraction] 26.7 % Low 37-[address] [facility] Hemoglobin measurementOrdere d By: Dominic Lim on 02-27-2024 Hemoglobin (Bld) [Mass/Vol] 7.8 g/dL Low 12.0-15.[address] [facility] MCV (mean corpuscular volume ) determinationOrdered By: Dominic Lim on 02-27-2024 MCV (RBC) [Entitic vol] 81.7 fL 81-[address] [facility] Mean corpuscular hemoglobin (MCH) determinationOrdered By: Dominic Lim on 02-27-2024 MCH (RBC) [Entitic mass] 23.9 pg Low 27.0-32.[address] [facility] Mean corpuscular hemoglobin concentration (MCHC) determinationOrdered By: Dominic Lim on 02-27-2024 MCHC (RBC) [Mass/Vol] 29.2 g/dL Low 32-36 [facility] Mean platelet volume determi nationOrdered By: Dominic Lim on 02-27-2024 Platelet mean volume (Bld) [Entitic vol] 9.7 fL 6.2-12.[address] [facility] Platelet countOrdered By: Fidelia Lim on 02-27-2024 Platelets (Bld) [#/Vol] 196 10*3/uL 150-[address] [facility] Potassium measurementOrdered By: Dominic Lim on 02-27-2024 Potassium [Moles/Vol] 3.9 mmol/L 3.5-5.1 [facility] RBC Auto (Bld) [#/Vol]Ordere d By: Dominic Lim on 02-27-2024 RBC (Bld) [#/Vol] 3.27 10*6/uL Low 4.2-5.4 [facility] Serum anion gap measurementO rdered By: Dominic Lim on 02-27-2024 Anion gap [Moles/Vol] 7 mmol/L 5-15 [facility] Serum or plasma calcium kay urement (mass/volume)Ordered By: Dominic Lim on 02-27-2024 Calcium [Mass/Vol] 8.6 mg/dL 8.5-10.1 [facility] Serum or plasma creatinine m easurement (mass/volume)Ordered By: Dominic Lim on 02-27-2024 Creatinine [Mass/Vol] 1.13 mg/dL High 0.55-1.02 [facility] Comment on above: The validity of the calculated GFR & GFRAA in patients over 70 years has not been determined. Clinical correlation is essential. Serum or plasma urea nitroge n measurement (mass/volume)Ordered By: Dominic Lim on 02-27-2024 Urea nitrogen [Mass/Vol] 24 mg/dL High 7-[address] [facility] Sodium levelOrdered By: Dominic Lim on 02-27-2024 Sodium [Moles/Vol] 139 mmol/L 136-145 [facility] White blood cell (WBC) count Ordered By: Dominic Lim on 02-27-2024 WBC (Bld) [#/Vol] 6.3 10*3/uL 4.4-11.0 [facility] Basic Metabolic Profile (BMP )on 01-29-2024 BUN/CRE 33.3 RATIO High 01-[address] [facility] Comment on above: Performed By: #### L 500.2500 ####[facility] [address], [address] CA,Total 8.1 mg/dL Low 8.5-10.[address] [facility] Comment on above: Performed By: #### L 500.2500 ####[facility] [address] [place], [address] Chloride [Moles/Vol] 102 mmol/L Normal 98-107 [place] Comment on above: Performed By: #### L 500.2500 ####[facility] [address] [place], [address] CO2 [Moles/Vol] 33.0 mmol/L High 21.0-32.[address] [facility] Comment on above: Performed By: #### L 500.2500 ####[facility] [address] [place], [address] Creatinine [Mass/Vol] 1.05 mg/dL High 0.55-1.02 [facility] Comment on above: Result Comment: The validity of the calculated GFR GFRAA in patients over70 years has not been determined. Clinical correlation isessential. Performed By: #### L 500.2500 ####[facility] [address] [place], [address] EST GFR - AA 66 mL/min Normal >[address] [facility] Comment on above: Result Comment: Afri can Malagasy GFR Calc Performed By: #### L 500.2500 ####[facility] [address] [place], [address] GAP 4 Low 5-[address] [facility] Comment on above: Performed By: #### L 500.2500 ####[facility] [address] [place], [address] GFR/1.73 sq M.predicted among non-blacks MDRD (S/P/Bld) [Vol rate/Area] 54 mL/min/{1.73_m2} Low >[address] [facility] Comment on above: Result Comment: Non- GFR Calc Performed By: #### L 500.2500 ####[facility] [address] [place], [address] Glucose [Mass/Vol] 101 mg/dL Normal 74-106 [facility] Comment on above: Result Comment: Fast ing Glucose result from 100 to 125 mg/dLsuggests IMPAIRED HOMEOSTASIS per A.D.A. criteria. Performed By: #### L 500.2500 ####[facility] [address] [place], [address] Potassium [Moles/Vol] 3.8 mmol/L Normal 3.5-5.1 [facility] Comment on above: Performed By: #### L 500.2500 ####[facility] [address] [place], [address] Sodium [Moles/Vol] 139 mmol/L Normal 136-145 [facility] Comment on above: Performed By: #### L 500.2500 ####[facility] [address] [place], [address] Urea nitrogen [Mass/Vol] 35 mg/dL High 7-[address] [facility] Comment on above: Performed By: #### L 500.2500 ####[facility] [address] [place], [address] Basic Metabolic Profile (BMP )on 01-28-2024 BUN/CRE 30.8 RATIO High 10-[address] [facility] Comment on above: Order Comment: 514.1 Performed By: #### L 501.8820, L500.2500, L101.9900, L100.0500 ####[facility] [address] [place], [address] CA,Total 8.3 mg/dL Low 8.5-10.[address] [facility] Comment on above: Order Comment: 514.1 Performed By: #### L 501.8820, L500.2500, L101.9900, L100.0500 ####[facility] [address] [place], [address] Chloride [Moles/Vol] 101 mmol/L Normal 98-107 [place] Comment on above: Order Comment: 514.1 Performed By: #### L 501.8820, L500.2500, L101.9900, L100.0500 ####[facility] [address] [place], [address] CO2 [Moles/Vol] 36.0 mmol/L High 21.0-32.[address] [facility] Comment on above: Order Comment: 514.1 Performed By: #### L 501.8820, L500.2500, L101.9900, L100.0500 ####[facility] [address] [place], [address] Creatinine [Mass/Vol] 1.07 mg/dL High 0.55-1.02 [facility] Comment on above: Order Comment: 514.1 Result Comment: The validity of the calculated GFR GFRAA in patients over70 years has not been determined. Clinical correlation isessential. Performed By: #### L 501.8820, L500.2500, L101.9900, L100.0500 ####[facility] [address] [place], [address] EST GFR - AA 64 mL/min Normal >[address] [facility] Comment on above: Order Comment: 514.1 Result Comment: Afri can Malagasy GFR Calc Performed By: #### L 501.8820, L500.2500, L101.9900, L100.0500 ####[facility] [address] [place], [address] GAP 2 Low 5-[address] [facility] Comment on above: Order Comment: 514.1 Performed By: #### L 501.8820, L500.2500, L101.9900, L100.0500 ####[facility] [address] [place], [address] GFR/1.73 sq M.predicted among non-blacks MDRD (S/P/Bld) [Vol rate/Area] 53 mL/min/{1.73_m2} Low >[address] [facility] Comment on above: Order Comment: 514.1 Result Comment: Non- GFR Calc Performed By: #### L 501.8820, L500.2500, L101.9900, L100.0500 ####[facility] [address] [place], [address] Glucose [Mass/Vol] 111 mg/dL High 74-106 [facility] Comment on above: Order Comment: 514.1 Result Comment: Fast ing Glucose result from 100 to 125 mg/dLsuggests IMPAIRED HOMEOSTASIS per A.D.A. criteria. Performed By: #### L 501.8820, L500.2500, L101.9900, L100.0500 ####[facility] [address] [place], [address] Potassium [Moles/Vol] 3.8 mmol/L Normal 3.5-5.1 [facility] Comment on above: Order Comment: 514.1 Performed By: #### L 501.8820, L500.2500, L101.9900, L100.0500 ####[facility] [address] [place], [address] Sodium [Moles/Vol] 139 mmol/L Normal 136-145 [facility] Comment on above: Order Comment: 514.1 Performed By: #### L 501.8820, L500.2500, L101.9900, L100.0500 ####[facility] [address] [place], [address] Urea nitrogen [Mass/Vol] 33 mg/dL High 7-[address] [facility] Comment on above: Order Comment: 514.1 Performed By: #### L 501.8820, L500.2500, L101.9900, L100.0500 ####[facility] [address] [place], [address] CBC-Complete Blood Cnt No Di ffon 01-28-2024 Erythrocyte distribution width (RBC) [Ratio] 17.2 % High 11.6-14.[address] [facility] Comment on above: Order Comment: 514.1 Performed By: #### L 501.8820, L500.2500, L101.9900, L100.0500 ####[facility] [address] [place], [address] Hematocrit (Bld) [Volume fraction] 27.9 % Low 37-[address] [facility] Comment on above: Order Comment: 514.1 Performed By: #### L 501.8820, L500.2500, L101.9900, L100.0500 ####[facility] [address] [place], [address] Hemoglobin (Bld) [Mass/Vol] 8.4 g/dL Low 12.0-15.[address] [facility] Comment on above: Order Comment: 514.1 Performed By: #### L 501.8820, L500.2500, L101.9900, L100.0500 ####[facility] [address] [place], [address] MCH (RBC) [Entitic mass] 25.5 pg Low 27.0-32.[address] [facility] Comment on above: Order Comment: 514.1 Performed By: #### L 501.8820, L500.2500, L101.9900, L100.0500 ####[facility] [address] [place], [address] MCHC (RBC) [Mass/Vol] 30.1 g/dL Low 32-36 [facility] Comment on above: Order Comment: 514.1 Performed By: #### L 501.8820, L500.2500, L101.9900, L100.0500 ####[facility] [address] [place], [address] MCV (RBC) [Entitic vol] 84.8 fL Normal 81-[address] [facility] Comment on above: Order Comment: 514.1 Performed By: #### L 501.8820, L500.2500, L101.9900, L100.0500 ####[facility] [address] [place], [address] Platelet mean volume (Bld) [Entitic vol] 9.2 fL Normal 6.2-12.[address] [facility] Comment on above: Order Comment: 514.1 Performed By: #### L 501.8820, L500.2500, L101.9900, L100.0500 ####[facility] [address] [place], [address] Platelets (Bld) [#/Vol] 316 10*3/uL Normal 150-[address] [facility] Comment on above: Order Comment: 514.1 Performed By: #### L 501.8820, L500.2500, L101.9900, L100.0500 ####[facility] [address] [place], [address] RBC (Bld) [#/Vol] 3.29 10*6/uL Low 4.2-5.4 [facility] Comment on above: Order Comment: 514.1 Performed By: #### L 501.8820, L500.2500, L101.9900, L100.0500 ####[facility] [address] [place], [address] RDW SD 53.3 fl High 35.1-43.[address] [facility] Comment on above: Order Comment: 514.1 Performed By: #### L 501.8820, L500.2500, L101.9900, L100.0500 ####[facility] [address] [place], [address] WBC (Bld) [#/Vol] 9.4 10*3/uL Normal 4.4-11.0 [facility] Comment on above: Order Comment: 514.1 Performed By: #### L 501.8820, L500.2500, L101.9900, L100.0500 ####[facility] [address] [place], [address] Erythrocyte Sed Rateon 01-27 SED RATE 33 mm/hr High 0-[address] [facility] Comment on above: Order Comment: 514.1 Performed By: #### L 501.8820, L500.2500, L101.9900, L100.0500 ####[facility] [address] [place], [address] Vancomycin, Trough Levelon 1 VANCO, TROUGH 4.1 ug/mL Low 5.0-15.[address] [facility] Comment on above: Order Comment: 514.1 0500 Result Comment: VANC OMYCIN STANDARED DRUG THERAPY TROUGH LEVEL: 5.0 - 15.0 mg/LVANCOMYCIN HIGH INTENSITY THERAPY TROUGH LEVEL: 15.0 - 20.0 mg/LHigh Intensity therapy recommended for serious lifethreatening infections include:- Dvhrtntbwm-Fsgmxiuvquom-Ssjwqrtcl (Ventilator/Healtcare Associated)-SepsisPLEASE CONTACT PHARMACY SERVICES (#6106) FOR INTERPRETATIONOF RESULTS. Performed By: #### L 501.8820, L500.2500, L101.9900, L100.0500 ####[facility] [address] [place], [address] L5000.0010on 01-26-2024 BNP Normal [facility] Comment on above: Result Comment: TEST RESULTS LIMITSB-Type Natriuretic Peptide 443.4 High pg/mL 0.0-100.0 Siemens ADVIA Centaur XP methodology TESTING PERFORMED AT [facility]. ORIGINAL REPORT ON FILE IN LAB CONTAINS ADDITIONAL TEST SITE INFORMATION. Performed By: #### L 101.9900, L100.0500, L500.2500, L5000.0010 ####[facility] [address] [place], [address] Basic Metabolic Profile (BMP )on 01-21-2024 BUN/CRE 34.1 RATIO High 01-[address] [facility] Comment on above: Order Comment: 514.1 Performed By: #### L 101.9900, L100.0500, L500.2500, L5000.0010 ####[facility] [address] [place], [address] CA,Total 8.0 mg/dL Low 8.5-10.[address] [facility] Comment on above: Order Comment: 514.1 Performed By: #### L 101.9900, L100.0500, L500.2500, L5000.0010 ####[facility] [address] [place], [address] Chloride [Moles/Vol] 105 mmol/L Normal 98-107 [facility] Comment on above: Order Comment: 514.1 Performed By: #### L 101.9900, L100.0500, L500.2500, L5000.0010 ####[facility] [address] [place], [address] CO2 [Moles/Vol] 31.0 mmol/L Normal 21.0-32.[address] [facility] Comment on above: Order Comment: 514.1 Performed By: #### L 101.9900, L100.0500, L500.2500, L5000.0010 ####[facility] [address] [place], [address] Creatinine [Mass/Vol] 1.00 mg/dL Normal 0.55-1.02 [facility] Comment on above: Order Comment: 514.1 Result Comment: The validity of the calculated GFR GFRAA in patients over70 years has not been determined. Clinical correlation isessential. Performed By: #### L 101.9900, L100.0500, L500.2500, L5000.0010 ####[facility] [address] [place], [address] EST GFR - AA 70 mL/min Normal >[address] [facility] Comment on above: Order Comment: 514.1 Result Comment: Afri can Malagasy GFR Calc Performed By: #### L 101.9900, L100.0500, L500.2500, L5000.0010 ####[facility] [address] [place], [address] GAP 4 Low 5-[address] [facility] Comment on above: Order Comment: 514.1 Performed By: #### L 101.9900, L100.0500, L500.2500, L5000.0010 ####[facility] [address] [place], [address] GFR/1.73 sq M.predicted among non-blacks MDRD (S/P/Bld) [Vol rate/Area] 58 mL/min/{1.73_m2} Low >[address] [facility] Comment on above: Order Comment: 514.1 Result Comment: Non- GFR Calc Performed By: #### L 101.9900, L100.0500, L500.2500, L5000.0010 ####[facility] [address] [place], [address] Glucose [Mass/Vol] 98 mg/dL Normal 74-106 [facility] Comment on above: Order Comment: 514.1 Performed By: #### L 101.9900, L100.0500, L500.2500, L5000.0010 ####[facility] [address] [place], [address] Potassium [Moles/Vol] 4.4 mmol/L Normal 3.5-5.1 [facility] Comment on above: Order Comment: 514.1 Performed By: #### L 101.9900, L100.0500, L500.2500, L5000.0010 ####[facility] [address] [place], [address] Sodium [Moles/Vol] 140 mmol/L Normal 136-145 [facility] Comment on above: Order Comment: 514.1 Performed By: #### L 101.9900, L100.0500, L500.2500, L5000.0010 ####[facility] [address] [place], [address] Urea nitrogen [Mass/Vol] 34 mg/dL High 7-[address] [facility] Comment on above: Order Comment: 514.1 Performed By: #### L 101.9900, L100.0500, L500.2500, L5000.0010 ####[facility] [address] [place], [address] CBC-Complete Blood Cnt No Di ffon 01-21-2024 Erythrocyte distribution width (RBC) [Ratio] 17.9 % High 11.6-14.[address] [facility] Comment on above: Order Comment: 514.1 Performed By: #### L 101.9900, L100.0500, L500.2500, L5000.0010 ####[facility] [address] [place], [address] Hematocrit (Bld) [Volume fraction] 26.9 % Low 37-[address] [facility] Comment on above: Order Comment: 514.1 Performed By: #### L 101.9900, L100.0500, L500.2500, L5000.0010 ####[facility] [address] [place], [address] Hemoglobin (Bld) [Mass/Vol] 8.1 g/dL Low 12.0-15.[address] [facility] Comment on above: Order Comment: 514.1 Performed By: #### L 101.9900, L100.0500, L500.2500, L5000.0010 ####[facility] [address] [place], [address] MCH (RBC) [Entitic mass] 25.7 pg Low 27.0-32.[address] [facility] Comment on above: Order Comment: 514.1 Performed By: #### L 101.9900, L100.0500, L500.2500, L5000.0010 ####[facility] [address] [place], [address] MCHC (RBC) [Mass/Vol] 30.1 g/dL Low 32-36 [facility] Comment on above: Order Comment: 514.1 Performed By: #### L 101.9900, L100.0500, L500.2500, L5000.0010 ####[facility] [address] [place], [address] MCV (RBC) [Entitic vol] 85.4 fL Normal 81-[address] [facility] Comment on above: Order Comment: 514.1 Performed By: #### L 101.9900, L100.0500, L500.2500, L5000.0010 ####[facility] [address] [place], [address] Platelet mean volume (Bld) [Entitic vol] 9.9 fL Normal 6.2-12.[address] [facility] Comment on above: Order Comment: 514.1 Performed By: #### L 101.9900, L100.0500, L500.2500, L5000.0010 ####[facility] [address] [place], [address] Platelets (Bld) [#/Vol] 180 10*3/uL Normal 150-[address] [facility] Comment on above: Order Comment: 514.1 Performed By: #### L 101.9900, L100.0500, L500.2500, L5000.0010 ####[facility] [address] [place], [address] RBC (Bld) [#/Vol] 3.15 10*6/uL Low 4.2-5.4 [facility] Comment on above: Order Comment: 514.1 Performed By: #### L 101.9900, L100.0500, L500.2500, L5000.0010 ####[facility] [address] [place], [address] RDW SD 55.3 fl High 35.1-43.[address] [facility] Comment on above: Order Comment: 514.1 Performed By: #### L 101.9900, L100.0500, L500.2500, L5000.0010 ####[facility] [address] [place], [address] WBC (Bld) [#/Vol] 9.5 10*3/uL Normal 4.4-11.0 [facility] Comment on above: Order Comment: 514.1 Performed By: #### L 101.9900, L100.0500, L500.2500, L5000.0010 ####[facility] [address] [place], [address] Erythrocyte Sed Rateon 01-20 SED RATE 21 mm/hr Normal 0-[address] [facility] Comment on above: Order Comment: 514.1 Performed By: #### L 101.9900, L100.0500, L500.2500, L5000.0010 ####[facility] [address] [place], [address] CRPon 01-16-2024 C-REACTIVE PROT 91.00 mg/L High 0.0-3.[address] [facility] Comment on above: Order Comment: 514-1 Result Comment: C-Re active Protein (CRP) provides useful information for thediagnosis, therapy and monitoring of inflammatory processesand associated diseases. For the evaluation of Relative Riskfor Cardiovascular Disease, a High Sensitivity CRP (HSCRP)should be ordered. Performed By: #### L 501.6710 ####[facility] [address] [place], [address] Basic Metabolic Profile (BMP )on 01-14-2024 BUN/CRE 29.6 RATIO High 10-[address] [facility] Comment on above: Order Comment: 514-1 Performed By: #### L 101.9900, L100.0500, L500.2500, L501.8820 ####[facility] [address] [place], [address] CA,Total 7.4 mg/dL Low 8.5-10.[address] [facility] Comment on above: Order Comment: 514-1 Performed By: #### L 101.9900, L100.0500, L500.2500, L501.8820 ####[facility] [address] [place], [address] Chloride [Moles/Vol] 105 mmol/L Normal 98-107 [facility] Comment on above: Order Comment: 514-1 Performed By: #### L 101.9900, L100.0500, L500.2500, L501.8820 ####[facility] [address] [place], [address] CO2 [Moles/Vol] 29.0 mmol/L Normal 21.0-32.[address] [facility] Comment on above: Order Comment: 514-1 Performed By: #### L 101.9900, L100.0500, L500.2500, L501.8820 ####[facility] [address] [place], [address] Creatinine [Mass/Vol] 0.98 mg/dL Normal 0.55-1.02 [facility] Comment on above: Order Comment: 514-1 Result Comment: The validity of the calculated GFR GFRAA in patients over70 years has not been determined. Clinical correlation isessential. Performed By: #### L 101.9900, L100.0500, L500.2500, L501.8820 ####[facility] [address] [place], [address] EST GFR - AA 71 mL/min Normal >[address] [facility] Comment on above: Order Comment: 514-1 Result Comment: Afri can Malagasy GFR Calc Performed By: #### L 101.9900, L100.0500, L500.2500, L501.8820 ####[facility] [address] [place], [address] GAP 9 Normal 5-[address] [facility] Comment on above: Order Comment: 514-1 Performed By: #### L 101.9900, L100.0500, L500.2500, L501.8820 ####[facility] [address] [place], [address] GFR/1.73 sq M.predicted among non-blacks MDRD (S/P/Bld) [Vol rate/Area] 59 mL/min/{1.73_m2} Low >[address] [facility] Comment on above: Order Comment: 514-1 Result Comment: Non- GFR Calc Performed By: #### L 101.9900, L100.0500, L500.2500, L501.8820 ####[facility] [address] [place], [address] Glucose [Mass/Vol] 74 mg/dL Normal 74-106 [facility] Comment on above: Order Comment: 514-1 Performed By: #### L 101.9900, L100.0500, L500.2500, L501.8820 ####[facility] [address] [place], [address] Potassium [Moles/Vol] 3.4 mmol/L Low 3.5-5.1 [facility] Comment on above: Order Comment: 514-1 Performed By: #### L 101.9900, L100.0500, L500.2500, L501.8820 ####[facility] [address] [place], [address] Sodium [Moles/Vol] 143 mmol/L Normal 136-145 [facility] Comment on above: Order Comment: 514-1 Performed By: #### L 101.9900, L100.0500, L500.2500, L501.8820 ####[facility] [address] [place], [address] Urea nitrogen [Mass/Vol] 29 mg/dL High 7-[address] [facility] Comment on above: Order Comment: 514-1 Performed By: #### L 101.9900, L100.0500, L500.2500, L501.8820 ####[facility] [address] [place], [address] CBC-Complete Blood Cnt No Di ffon 01-14-2024 Erythrocyte distribution width (RBC) [Ratio] 17.5 % High 11.6-14.[address] [facility] Comment on above: Order Comment: 514-1 Performed By: #### L 101.9900, L100.0500, L500.2500, L501.8820 ####[facility] [address] [place], [address] Hematocrit (Bld) [Volume fraction] 25.2 % Low 37-[address] [facility] Comment on above: Order Comment: 514-1 Performed By: #### L 101.9900, L100.0500, L500.2500, L501.8820 ####[facility] [address] [place], [address] Hemoglobin (Bld) [Mass/Vol] 7.7 g/dL Low 12.0-15.[address] [facility] Comment on above: Order Comment: 514-1 Performed By: #### L 101.9900, L100.0500, L500.2500, L501.8820 ####[facility] [address] [place], [address] MCH (RBC) [Entitic mass] 26.1 pg Low 27.0-32.[address] [facility] Comment on above: Order Comment: 514-1 Performed By: #### L 101.9900, L100.0500, L500.2500, L501.8820 ####[facility] [address] [place], [address] MCHC (RBC) [Mass/Vol] 30.6 g/dL Low 32-36 [facility] Comment on above: Order Comment: 514-1 Performed By: #### L 101.9900, L100.0500, L500.2500, L501.8820 ####[facility] [address] [place], [address] MCV (RBC) [Entitic vol] 85.4 fL Normal 81-[address] [facility] Comment on above: Order Comment: 514-1 Performed By: #### L 101.9900, L100.0500, L500.2500, L501.8820 ####[facility] [address] [place], [address] Platelet mean volume (Bld) [Entitic vol] 11.0 fL Normal 6.2-12.[address] [facility] Comment on above: Order Comment: 514-1 Performed By: #### L 101.9900, L100.0500, L500.2500, L501.8820 ####[facility] [address] [place], [address] Platelets (Bld) [#/Vol] 162 10*3/uL Normal 150-[address] [facility] Comment on above: Order Comment: 514-1 Performed By: #### L 101.9900, L100.0500, L500.2500, L501.8820 ####[facility] [address] [place], [address] RBC (Bld) [#/Vol] 2.95 10*6/uL Low 4.2-5.4 [facility] Comment on above: Order Comment: 514-1 Performed By: #### L 101.9900, L100.0500, L500.2500, L501.8820 ####[facility] [address] [place], [address] RDW SD 54.9 fl High 35.1-43.[address] [facility] Comment on above: Order Comment: 514-1 Performed By: #### L 101.9900, L100.0500, L500.2500, L501.8820 ####[facility] [address] [place], [address] WBC (Bld) [#/Vol] 8.0 10*3/uL Normal 4.4-11.0 [facility] Comment on above: Order Comment: 514-1 Performed By: #### L 101.9900, L100.0500, L500.2500, L501.8820 ####[facility] [address] [place], [address] Erythrocyte Sed Rateon 01-13 SED RATE 12 mm/hr Normal 0-[address] [facility] Comment on above: Order Comment: 514 Performed By: #### L 101.9900, L100.0500, L500.2500, L501.8820 ####[facility] [address] [place], [address] Vancomycin, Trough Levelon 1 VANCO, TROUGH 30.8 ug/mL High 5.0-15.[address] [facility] Comment on above: Order Comment: 0800 Result Comment: VANC OMYCIN STANDARED DRUG THERAPY TROUGH LEVEL: 5.0 - 15.0 mg/LVANCOMYCIN HIGH INTENSITY THERAPY TROUGH LEVEL: 15.0 - 20.0 mg/LHigh Intensity therapy recommended for serious lifethreatening infections include:- Dbgawmmnhz-Jipywjceopsm-Qwxoewmvn (Ventilator/Healtcare Associated)-SepsisPLEASE CONTACT PHARMACY SERVICES (#4667) FOR INTERPRETATIONOF RESULTS. Performed By: #### L 101.9900, L100.0500, L500.2500, L501.8820 ####[facility] [address] [place], [address] Basic Metabolic Profile (BMP )on 01-09-2024 BUN/CRE 29.8 RATIO High 10-[address] [facility] Comment on above: Order Comment: 105.1 Performed By: #### L 100.0500, L500.2500 ####[facility] [address] [place], [address] CA,Total 8.3 mg/dL Low 8.5-10.[address] [facility] Comment on above: Order Comment: 105.1 Performed By: #### L 100.0500, L500.2500 ####[facility] [address] [place], [address] Chloride [Moles/Vol] 100 mmol/L Normal 98-107 [facility] Comment on above: Order Comment: 105.1 Performed By: #### L 100.0500, L500.2500 ####[facility] [address] [place], [address] CO2 [Moles/Vol] 37.0 mmol/L High 21.0-32.[address] [facility] Comment on above: Order Comment: 105.1 Performed By: #### L 100.0500, L500.2500 ####[facility] [address] [place], [address] Creatinine [Mass/Vol] 1.24 mg/dL High 0.55-1.02 [facility] Comment on above: Order Comment: 105.1 Result Comment: The validity of the calculated GFR GFRAA in patients over70 years has not been determined. Clinical correlation isessential. Performed By: #### L 100.0500, L500.2500 ####[facility] [address] [place], [address] EST GFR - AA 54 mL/min Low >[address] [facility] Comment on above: Order Comment: 105.1 Result Comment: Afri can Malagasy GFR Calc Performed By: #### L 100.0500, L500.2500 ####[facility] [address] [place], [address] GAP 4 Low 5-[address] [facility] Comment on above: Order Comment: 105.1 Performed By: #### L 100.0500, L500.2500 ####[facility] [address] [place], [address] GFR/1.73 sq M.predicted among non-blacks MDRD (S/P/Bld) [Vol rate/Area] 45 mL/min/{1.73_m2} Low >[address] [facility] Comment on above: Order Comment: 105.1 Result Comment: Non- GFR Calc Performed By: #### L 100.0500, L500.2500 ####[facility] [address] [place], [address] Glucose [Mass/Vol] 193 mg/dL High 74-106 [facility] Comment on above: Order Comment: 105.1 Result Comment: Fast ing Glucose result greater than or equal to 126 mg/dLsuggests DIABETES MELLITUS per A.D.A. criteria. Performed By: #### L 100.0500, L500.2500 ####[facility] [address] [place], [address] Potassium [Moles/Vol] 3.4 mmol/L Low 3.5-5.1 [facility] Comment on above: Order Comment: 105.1 Result Comment: Slig ht Hemolysis, Result may be falsely increased. Performed By: #### L 100.0500, L500.2500 ####[facility] [address] [place], [address] Sodium [Moles/Vol] 141 mmol/L Normal 136-145 [facility] Comment on above: Order Comment: 105.1 Performed By: #### L 100.0500, L500.2500 ####[facility] [address] [place], [address] Urea nitrogen [Mass/Vol] 37 mg/dL High 7-18 [facility] Comment on above: Order Comment: 105.1 Performed By: #### L 100.0500, L500.2500 ####[facility] [address] [place], [address] BUN Normal 7-[address] [facility] Comment on above: Result Comment: Canc elled via OM: Order cancelled - Patient discharged Performed By: #### L 500.2500 ####[facility] [address] [place], [address] BUN/CRE Normal 10-[address] [facility] Comment on above: Result Comment: Canc elled via OM: Order cancelled - Patient discharged Performed By: #### L 500.2500 ####[facility] [address] [place], [address] CA,Total Normal 8.5-10.[address] [facility] Comment on above: Result Comment: Canc elled via OM: Order cancelled - Patient discharged Performed By: #### L 500.2500 ####[facility] [address] [place], [address] CL Normal 98-[address] [facility] Comment on above: Result Comment: Canc elled via OM: Order cancelled - Patient discharged Performed By: #### L 500.2500 ####[facility] [address] [place], [address] CO2 Normal 21.0-32.[address] [facility] Comment on above: Result Comment: Canc elled via OM: Order cancelled - Patient discharged Performed By: #### L 500.2500 ####[facility] [address] [place], [address] CREAT,SERUM Normal 0.55-1.[address] [facility] Comment on above: Result Comment: Canc elled via OM: Order cancelled - Patient discharged Performed By: #### L 500.2500 ####[facility] [address] [place], [address] EST GFR Normal >[address] [facility] Comment on above: Result Comment: Canc elled via OM: Order cancelled - Patient discharged Performed By: #### L 500.2500 ####[facility] [address] [place], [address] EST GFR - AA Normal >[address] [facility] Comment on above: Result Comment: Canc elled via OM: Order cancelled - Patient discharged Performed By: #### L 500.2500 ####[facility] [address] [place], [address] GAP Normal 5-[address] [facility] Comment on above: Result Comment: Canc elled via OM: Order cancelled - Patient discharged Performed By: #### L 500.2500 ####[facility] [address] [place], [address] GLU Normal 74-[address] [facility] Comment on above: Result Comment: Canc elled via OM: Order cancelled - Patient discharged Performed By: #### L 500.2500 ####[facility] [address] [place], [address] Potassium Normal 3.5-5.[address] [facility] Comment on above: Result Comment: Canc elled via OM: Order cancelled - Patient discharged Performed By: #### L 500.2500 ####[facility] [address] [place], [address] Basic Metabolic Profile (BMP) Normal 136-[address] [facility] Comment on above: Result Comment: Canc elled via OM: Order cancelled - Patient discharged Performed By: #### L 500.2500 ####[facility] [address] [place], [address] CBC-Complete Blood Cnt No Di ffon 01-09-2024 Erythrocyte distribution width (RBC) [Ratio] 17.6 % High 11.6-14.[address] [facility] Comment on above: Order Comment: 105.1 Performed By: #### L 100.0500, L500.2500 ####[facility] [address] [place], [address] Hematocrit (Bld) [Volume fraction] 32.6 % Low 37-[address] [facility] Comment on above: Order Comment: 105.1 Performed By: #### L 100.0500, L500.2500 ####[facility] [address] [place], [address] Hemoglobin (Bld) [Mass/Vol] 9.7 g/dL Low 12.0-15.[address] [facility] Comment on above: Order Comment: 105.1 Performed By: #### L 100.0500, L500.2500 ####[facility] [address] [place], [address] MCH (RBC) [Entitic mass] 25.7 pg Low 27.0-32.[address] [facility] Comment on above: Order Comment: 105.1 Performed By: #### L 100.0500, L500.2500 ####[facility] [address] [place], [address] MCHC (RBC) [Mass/Vol] 29.8 g/dL Low 32-36 [facility] Comment on above: Order Comment: 105.1 Performed By: #### L 100.0500, L500.2500 ####[facility] [address] [place], [address] MCV (RBC) [Entitic vol] 86.2 fL Normal 81-[address] [facility] Comment on above: Order Comment: 105.1 Performed By: #### L 100.0500, L500.2500 ####[facility] [address] [place], [address] Platelet mean volume (Bld) [Entitic vol] 10.5 fL Normal 6.2-12.[address] [facility] Comment on above: Order Comment: 105.1 Performed By: #### L 100.0500, L500.2500 ####[facility] [address] [place], [address] Platelets (Bld) [#/Vol] 243 10*3/uL Normal 150-[address] [facility] Comment on above: Order Comment: 105.1 Performed By: #### L 100.0500, L500.2500 ####[facility] [address] [place], [address] RBC (Bld) [#/Vol] 3.78 10*6/uL Low 4.2-5.4 [facility] Comment on above: Order Comment: 105.1 Performed By: #### L 100.0500, L500.2500 ####[facility] [address] [place], [address] RDW SD 54.8 fl High 35.1-43.[address] [facility] Comment on above: Order Comment: 105.1 Performed By: #### L 100.0500, L500.2500 ####[facility] [address] [place], [address] WBC (Bld) [#/Vol] 15.9 10*3/uL High 4.4-11.0 [facility] Comment on above: Order Comment: 105.1 Performed By: #### L 100.0500, L500.2500 ####[facility] [address] [place], [address] Basic Metabolic Profile (BMP )on 01-08-2024 BUN/CRE 28.4 RATIO High 10-[address] [facility] Comment on above: Performed By: #### L 500.2500 ####[facility] [address] [place], [address] CA,Total 8.2 mg/dL Low 8.5-10.[address] [facility] Comment on above: Performed By: #### L 500.2500 ####[facility] [address] [place], [address] Chloride [Moles/Vol] 100 mmol/L Normal 98-107 [place] Comment on above: Performed By: #### L 500.2500 ####[facility] [address] [place], [address] CO2 [Moles/Vol] 36.0 mmol/L High 21.0-32.[address] [facility] Comment on above: Performed By: #### L 500.2500 ####[facility] [address] [place], [address] Creatinine [Mass/Vol] 1.34 mg/dL High 0.55-1.02 [facility] Comment on above: Result Comment: The validity of the calculated GFR GFRAA in patients over70 years has not been determined. Clinical correlation isessential. Performed By: #### L 500.2500 ####[facility] [address] [place], [address] ECRCL 49.74 ml/min Normal [facility] Comment on above: Performed By: #### L 500.2500 ####[facility] [address] [place], [address] EST GFR - AA 50 mL/min Low >[address] [facility] Comment on above: Result Comment: Afri can Malagasy GFR Calc Performed By: #### L 500.2500 ####[facility] [address] [place], [address] GAP 5 Normal 5-[address] [facility] Comment on above: Performed By: #### L 500.2500 ####[facility] [address] [place] [address] GFR/1.73 sq M.predicted among non-blacks MDRD (S/P/Bld) [Vol rate/Area] 41 mL/min/{1.73_m2} Low >[address] [facility] Comment on above: Result Comment: Non- GFR Calc Performed By: #### L 500.2500 ####[facility] [address] [place], [address] Glucose [Mass/Vol] 210 mg/dL High 74-106 [facility] Comment on above: Result Comment: Gluc ose result greater than or equal to 200 mg/dLsuggests DIABETES MELLITUS per A.D.A. criteria. Performed By: #### L 500.2500 ####[facility] [address] [place], [address] Potassium [Moles/Vol] 3.9 mmol/L Normal 3.5-5.1 [facility] Comment on above: Performed By: #### L 500.2500 ####[facility] [address] [place], [address] Sodium [Moles/Vol] 141 mmol/L Normal 136-145 [facility] Comment on above: Performed By: #### L 500.2500 ####[facility] [address] [place], [address] Urea nitrogen [Mass/Vol] 38 mg/dL High 7-[address] [facility] Comment on above: Performed By: #### L 500.2500 ####[facility] [address] [place], [address] CXR for Line Placementon CXR for Line Placement Normal [facility] Chest 1 View (Portable)on Chest 1 View (Portable) Normal [facility] Basic Metabolic Profile (BMP )on 01-07-2024 BUN/CRE 27.8 RATIO High 10-[address] [facility] Comment on above: Performed By: #### L 500.2500 ####[facility] [address] [place], [address] CA,Total 8.1 mg/dL Low 8.5-10.[address] [facility] Comment on above: Performed By: #### L 500.2500 ####[facility] [address] [place], [address] Chloride [Moles/Vol] 101 mmol/L Normal 98-107 [place] Comment on above: Performed By: #### L 500.2500 ####[facility] [address] [place], [address] CO2 [Moles/Vol] 34.0 mmol/L High 21.0-32.[address] [facility] Comment on above: Performed By: #### L 500.2500 ####[facility] [address] [place], [address] Creatinine [Mass/Vol] 1.26 mg/dL High 0.55-1.02 [facility] Comment on above: Result Comment: The validity of the calculated GFR GFRAA in patients over70 years has not been determined. Clinical correlation isessential. Performed By: #### L 500.2500 ####[facility] [address] [place], [address] ECRCL 52.57 ml/min Normal [facility] Comment on above: Performed By: #### L 500.2500 ####[facility] [address] [place], [address] EST GFR - AA 53 mL/min Low >[address] [facility] Comment on above: Result Comment: Afri can Malagasy GFR Calc Performed By: #### L 500.2500 ####[facility] [address] [place], [address] GAP 7 Normal 5-[address] [facility] Comment on above: Performed By: #### L 500.2500 ####[facility] [address] [place], [address] GFR/1.73 sq M.predicted among non-blacks MDRD (S/P/Bld) [Vol rate/Area] 44 mL/min/{1.73_m2} Low >[address] [facility] Comment on above: Result Comment: Non- GFR Calc Performed By: #### L 500.2500 ####[facility] [address] [place], [address] Glucose [Mass/Vol] 211 mg/dL High 74-106 [facility] Comment on above: Result Comment: Gluc ose result greater than or equal to 200 mg/dLsuggests DIABETES MELLITUS per A.D.A. criteria. Performed By: #### L 500.2500 ####[facility] [address] [place], [address] Potassium [Moles/Vol] 3.5 mmol/L Normal 3.5-5.1 [facility] Comment on above: Performed By: #### L 500.2500 ####[facility] [address] [place], [address] Sodium [Moles/Vol] 141 mmol/L Normal 136-145 [facility] Comment on above: Performed By: #### L 500.2500 ####[facility] [address] [place], [address] Urea nitrogen [Mass/Vol] 35 mg/dL High 7-[address] [facility] Comment on above: Performed By: #### L 500.2500 ####[facility] [address] [place], [address] CDIFF (PCR)on 01-07-2024 CDIFF Normal [facility] Comment on above: Performed By: #### M 100.6796, M100.6795 ####[facility] [address] [place], [address] Clostridium Diff Toxin/Agon 01-07-2024 CDIFF (EIA) Normal [facility] Comment on above: Performed By: #### M 100.6796, M100.6795 ####[facility] [address] [place], [address] Culture, Blood (WB)on 2023 CUB No growth in 5 days. Normal [place] Comment on above: Performed By: #### M 200.1000 ####[facility] [address] [place], [address] Vancomycin, Random Levelon 0 01-07-2024 VANCO, RANDOM 21.4 ug/mL High 0.0-15.[address] [facility] Comment on above: Order Comment: Comme nts: Please draw with AM labs Result Comment: VANC OMYCIN STANDARD DRUG THERAPY: CRITICAL VALUE IS > 15.0 mg/LVANCOMYCIN HIGH INTENSITY THERAPY: CRITICAL VALUE IS > 20.0 mg/LPLEASE CONTACT PHARMACY SERVICES (#3454) FOR INTERPRETATIONOF RESULTS. THIS RESULT DOES NOT REPRESENT A PEAK OR TROUGHLEVEL FOR THIS DRUG. Performed By: #### L 501.8850 ####[facility] [address] [place], [address] Basic Metabolic Profile (BMP )on 01-06-2024 BUN/CRE 23.4 RATIO High 10-[address] [facility] Comment on above: Performed By: #### L 500.2500 ####[facility] [address] [place], [address] CA,Total 8.2 mg/dL Low 8.5-10.[address] [facility] Comment on above: Performed By: #### L 500.2500 ####[facility] [address] [place], [address] Chloride [Moles/Vol] 102 mmol/L Normal 98-107 [place] Comment on above: Performed By: #### L 500.2500 ####[facility] [address] [place], [address] CO2 [Moles/Vol] 31.0 mmol/L Normal 21.0-32.[address] [facility] Comment on above: Performed By: #### L 500.2500 ####[facility] [address] [place], [address] Creatinine [Mass/Vol] 1.24 mg/dL High 0.55-1.02 [facility] Comment on above: Result Comment: The validity of the calculated GFR GFRAA in patients over70 years has not been determined. Clinical correlation isessential. Performed By: #### L 500.2500 ####[facility] [address] [place], [address] ECRCL 53.36 ml/min Normal [facility] Comment on above: Performed By: #### L 500.2500 ####[facility] [address] [place], [address] EST GFR - AA 54 mL/min Low >[address] [facility] Comment on above: Result Comment: Afri can Malagasy GFR Calc Performed By: #### L 500.2500 ####[facility] [address] [place], [address] GAP 7 Normal 5-[address] [facility] Comment on above: Performed By: #### L 500.2500 ####[facility] [address] [place], [address] GFR/1.73 sq M.predicted among non-blacks MDRD (S/P/Bld) [Vol rate/Area] 45 mL/min/{1.73_m2} Low >[address] [facility] Comment on above: Result Comment: Non- GFR Calc Performed By: #### L 500.2500 ####[facility] [address] [place], [address] Glucose [Mass/Vol] 282 mg/dL High 74-106 [facility] Comment on above: Result Comment: Gluc ose result greater than or equal to 200 mg/dLsuggests DIABETES MELLITUS per A.D.A. criteria. Performed By: #### L 500.2500 ####[facility] [address] [place], [address] Potassium [Moles/Vol] 3.1 mmol/L Low 3.5-5.1 [facility] Comment on above: Performed By: #### L 500.2500 ####[facility] [address] [place], [address] Sodium [Moles/Vol] 140 mmol/L Normal 136-145 [facility] Comment on above: Performed By: #### L 500.2500 ####[facility] [address] [place], [address] Urea nitrogen [Mass/Vol] 29 mg/dL High 7-[address] [facility] Comment on above: Performed By: #### L 500.2500 ####[facility] [address] [place], [address] CBC-Complete Blood Cnt No Steve lott 01-05-2024 Erythrocyte distribution width (RBC) [Ratio] 17.7 % High 11.6-14.[address] [facility] Comment on above: Result Comment: OVER LAPPING- CBCD ORDERED Performed By: #### L 100.0500, L500.4050 ####[facility] [address] [place], [address] Hematocrit (Bld) [Volume fraction] 30.5 % Low 37-[address] [facility] Comment on above: Result Comment: OVER LAPPING- CBCD ORDERED Performed By: #### L 100.0500, L500.4050 ####[facility] [address] [place], [address] Hemoglobin (Bld) [Mass/Vol] 9.1 g/dL Low 12.0-15.[address] [facility] Comment on above: Result Comment: OVER LAPPING- CBCD ORDERED Performed By: #### L 100.0500, L500.4050 ####[facility] [address] [place], [address] MCH (RBC) [Entitic mass] 25.3 pg Low 27.0-32.[address] [facility] Comment on above: Result Comment: OVER LAPPING- CBCD ORDERED Performed By: #### L 100.0500, L500.4050 ####[facility] [address] [place], [address] MCHC (RBC) [Mass/Vol] 29.8 g/dL Low 32-36 [facility] Comment on above: Result Comment: OVER LAPPING- CBCD ORDERED Performed By: #### L 100.0500, L500.4050 ####[facility] [address] [place], [address] MCV (RBC) [Entitic vol] 85.0 fL Normal 81-[address] [facility] Comment on above: Result Comment: OVER LAPPING- CBCD ORDERED Performed By: #### L 100.0500, L500.4050 ####[facility] [address] [place], [address] Platelet mean volume (Bld) [Entitic vol] 9.1 fL Normal 6.2-12.[address] [facility] Comment on above: Performed By: #### L 100.0500, L500.4050 ####[facility] [address] [place], [address] Platelets (Bld) [#/Vol] 209 10*3/uL Normal 150-[address] [facility] Comment on above: Result Comment: OVER LAPPING- CBCD ORDERED Performed By: #### L 100.0500, L500.4050 ####[facility] [address] [place], [address] RBC (Bld) [#/Vol] 3.59 10*6/uL Low 4.2-5.4 [facility] Comment on above: Result Comment: OVER LAPPING- CBCD ORDERED Performed By: #### L 100.0500, L500.4050 ####[facility] [address] [place], [address] RDW SD 55.3 fl High 35.1-43.[address] [facility] Comment on above: Result Comment: OVER LAPPING- CBCD ORDERED Performed By: #### L 100.0500, L500.4050 ####[facility] [address] [place], [address] WBC (Bld) [#/Vol] 6.0 10*3/uL Normal 4.4-11.0 [facility] Comment on above: Result Comment: OVER LAPPING- CBCD ORDERED Performed By: #### L 100.0500, L500.4050 ####[facility] [address] [place], [address] Comprehensive Metabolic Prof [facility] 01-05-2024 Albumin [Mass/Vol] 1.8 g/dL Low 3.2-5.0 [facility] Comment on above: Performed By: #### L 100.0500, L500.4050 ####[facility] [address] [place], [address] Albumin/Globulin [Mass ratio] 0.7 {ratio} Low 0.9-2.[address] [facility] Comment on above: Performed By: #### L 100.0500, L500.4050 ####[facility] [address] [place], [address] ALK P 139 U/L High 45-[address] [facility] Comment on above: Performed By: #### L 100.0500, L500.4050 ####[facility] [address] [place], [address] ALT [Catalytic activity/Vol] 19 U/L Normal 13-[address] [facility] Comment on above: Performed By: #### L 100.0500, L500.4050 ####[facility] [address] [place], [address] AST [Catalytic activity/Vol] 20 U/L Normal 15-[address] [facility] Comment on above: Performed By: #### L 100.0500, L500.4050 ####[facility] [address] [place], [address] Bilirubin [Mass/Vol] 0.20 mg/dL Normal 0.20-1.00 [place] Comment on above: Result Comment: For patients on eltrombopag therapy, use of Dimension [place] TBIL is not recommended. Performed By: #### L 100.0500, L500.4050 ####[facility] [address] [place], [address] BUN/CRE 22.7 RATIO High 10-[address] [facility] Comment on above: Performed By: #### L 100.0500, L500.4050 ####[facility] [address] [place], [address] CA,Total 8.0 mg/dL Low 8.5-10.[address] [facility] Comment on above: Performed By: #### L 100.0500, L500.4050 ####[facility] [address] [place], [address] Chloride [Moles/Vol] 106 mmol/L Normal 98-107 [place] Comment on above: Performed By: #### L 100.0500, L500.4050 ####[facility] [address] [place], [address] CO2 [Moles/Vol] 28.0 mmol/L Normal 21.0-32.[address] [facility] Comment on above: Performed By: #### L 100.0500, L500.4050 ####[facility] [address] [place], [address] Creatinine [Mass/Vol] 1.19 mg/dL High 0.55-1.02 [facility] Comment on above: Result Comment: The validity of the calculated GFR GFRAA in patients over70 years has not been determined. Clinical correlation isessential. Performed By: #### L 100.0500, L500.4050 ####[facility] [address] [place], [address] ECRCL 55.58 ml/min Normal [facility] Comment on above: Performed By: #### L 100.0500, L500.4050 ####[facility] [address] [place], [address] EST GFR - AA 57 mL/min Low >[address] [facility] Comment on above: Result Comment: Afri can Malagasy GFR Calc Performed By: #### L 100.0500, L500.4050 ####[facility] [address] [place], [address] GAP 8 Normal 5-[address] [facility] Comment on above: Performed By: #### L 100.0500, L500.4050 ####[facility] [address] [place], [address] GFR/1.73 sq M.predicted among non-blacks MDRD (S/P/Bld) [Vol rate/Area] 47 mL/min/{1.73_m2} Low >[address] [facility] Comment on above: Result Comment: Non- GFR Calc Performed By: #### L 100.0500, L500.4050 ####[facility] [address] [place], [address] Globulin (S) [Mass/Vol] 2.7 g/dL Normal 2.2-4.[address] [facility] Comment on above: Performed By: #### L 100.0500, L500.4050 ####[facility] [address] [place], [address] Glucose [Mass/Vol] 253 mg/dL High 74-106 [facility] Comment on above: Result Comment: Gluc ose result greater than or equal to 200 mg/dLsuggests DIABETES MELLITUS per A.D.A. criteria. Performed By: #### L 100.0500, L500.4050 ####[facility] [address] [place], [address] Potassium [Moles/Vol] 3.4 mmol/L Low 3.5-5.1 [facility] Comment on above: Performed By: #### L 100.0500, L500.4050 ####[facility] [address] [place], [address] Sodium [Moles/Vol] 142 mmol/L Normal 136-145 [facility] Comment on above: Performed By: #### L 100.0500, L500.4050 ####[facility] [address] [place], [address] T PROT 4.5 g/dL Low 6.4-8.[address] [facility] Comment on above: Performed By: #### L 100.0500, L500.4050 ####[facility] [address] [place], [address] Urea nitrogen [Mass/Vol] 27 mg/dL High 7-[address] [facility] Comment on above: Performed By: #### L 100.0500, L500.4050 ####[facility] [address] [place], [address] Vancomycin, Random Levelon 0 - VANCO, RANDOM 24.4 ug/mL High 0.0-15.[address] [facility] Comment on above: Result Comment: VANC OMYCIN STANDARD DRUG THERAPY: CRITICAL VALUE IS > 15.0 mg/LVANCOMYCIN HIGH INTENSITY THERAPY: CRITICAL VALUE IS > 20.0 mg/LPLEASE CONTACT PHARMACY SERVICES (#0350) FOR INTERPRETATIONOF RESULTS. THIS RESULT DOES NOT REPRESENT A PEAK OR TROUGHLEVEL FOR THIS DRUG. Performed By: #### L 501.8850 ####[facility] [address] [place], [address] CBC W/Diff, Automatedon 09-2 Absolute Lymph 0.74 X10 3/uL Low 0.83-4.[address] [facility] Comment on above: Performed By: #### L 100.0100 ####[facility] [address] [place], [address] Absolute Neut 4.8 X10 3/uL Normal 2.0-7.[address] [facility] Comment on above: Performed By: #### L 100.0100 ####[facility] [address] [place], [address] Basophils/100 WBC (Bld) 0.2 % Normal 0-[address] [facility] Comment on above: Performed By: #### L 100.0100 ####[facility] [address] [place], [address] Eosinophils/100 WBC (Bld) 0.0 % Normal 0-[address] [facility] Comment on above: Performed By: #### L 100.0100 ####[facility] [address] [place], [address] Erythrocyte distribution width (RBC) [Ratio] 17.7 % High 11.6-14.[address] [facility] Comment on above: Performed By: #### L 100.0100 ####[facility] [address] [place], [address] Hematocrit (Bld) [Volume fraction] 30.0 % Low 37-[address] [facility] Comment on above: Performed By: #### L 100.0100 ####[facility] [address] [place], [address] Hemoglobin (Bld) [Mass/Vol] 9.0 g/dL Low 12.0-15.[address] [facility] Comment on above: Performed By: #### L 100.0100 ####[facility] [address] [place], [address] IG% 1.000 High 0.0-0.[address] [facility] Comment on above: Result Comment: IG% - Immature Granulocytes (promyelocytes, myelocytes andmetamyelocytes) > 1% indicates that a LEFT SHIFT is Present. Performed By: #### L 100.0100 ####[facility] [address] [place], [address] Lymphocytes/100 WBC (Bld) 12.9 % Low 19-[address] [facility] Comment on above: Performed By: #### L 100.0100 ####[facility] [address] [place], [address] MCH (RBC) [Entitic mass] 25.3 pg Low 27.0-32.[address] [facility] Comment on above: Performed By: #### L 100.0100 ####[facility] [address] [place], [address] MCHC (RBC) [Mass/Vol] 30.0 g/dL Low 32-36 [facility] Comment on above: Performed By: #### L 100.0100 ####[facility] [address] [place], [address] MCV (RBC) [Entitic vol] 84.3 fL Normal 81-[address] [facility] Comment on above: Performed By: #### L 100.0100 ####[facility] [address] [place], [address] Monocytes/100 WBC (Bld) 2.4 % Normal 0-[address] [facility] Comment on above: Performed By: #### L 100.0100 ####[facility] [address] [place], [address] Neutrophils/100 WBC (Bld) 83.5 % High 47-[address] [facility] Comment on above: Performed By: #### L 100.0100 ####[facility] [address] [place], [address] Nucleated RBC (Bld) [#/Vol] 0 10*3/uL Normal 0-[address] [facility] Comment on above: Performed By: #### L 100.0100 ####[facility] [address] [place], [address] Platelet mean volume (Bld) [Entitic vol] 9.4 fL Normal 6.2-12.[address] [facility] Comment on above: Performed By: #### L 100.0100 ####[facility] [address] [place], [address] Platelets (Bld) [#/Vol] 219 10*3/uL Normal 150-[address] [facility] Comment on above: Performed By: #### L 100.0100 ####[facility] [address] [place], [address] RBC (Bld) [#/Vol] 3.56 10*6/uL Low 4.2-5.4 [facility] Comment on above: Performed By: #### L 100.0100 ####[facility] [address] [place], [address] RDW SD 54.4 fl High 35.1-43.[address] [facility] Comment on above: Performed By: #### L 100.0100 ####[facility] [address] [place], [address] WBC (Bld) [#/Vol] 5.8 10*3/uL Normal 4.4-11.0 [facility] Comment on above: Performed By: #### L 100.0100 ####[facility] [address] [place], [address] Comprehensive Metabolic [facility] 01-04-2024 Albumin [Mass/Vol] 1.7 g/dL Low 3.2-5.0 [facility] Comment on above: Performed By: #### L 500.4050 ####[facility] [address] [place], [address] Albumin/Globulin [Mass ratio] 0.6 {ratio} Low 0.9-2.[address] [facility] Comment on above: Performed By: #### L 500.4050 ####[facility] [address] [place], [address] ALK P 130 U/L High 45-[address] [facility] Comment on above: Performed By: #### L 500.4050 ####[facility] [address] [place], [address] ALT [Catalytic activity/Vol] 17 U/L Normal 13-[address] [facility] Comment on above: Performed By: #### L 500.4050 ####[facility] [address] [place], [address] AST [Catalytic activity/Vol] 21 U/L Normal 15-[address] [facility] Comment on above: Performed By: #### L 500.4050 ####[facility] [address] [place], [address] Bilirubin [Mass/Vol] 0.30 mg/dL Normal 0.20-1.00 [place] Comment on above: Result Comment: For patients on eltrombopag therapy, use of Dimension [place] TBIL is not recommended. Performed By: #### L 500.4050 ####[facility] [address] [place], [address] BUN/CRE 24.8 RATIO High 10-[address] [facility] Comment on above: Performed By: #### L 500.4050 ####[facility] [address] [place], [address] CA,Total 7.9 mg/dL Low 8.5-10.[address] [facility] Comment on above: Performed By: #### L 500.4050 ####[facility] [address] [place], [address] Chloride [Moles/Vol] 105 mmol/L Normal 98-107 [place] Comment on above: Performed By: #### L 500.4050 ####[facility] [address] [place], [address] CO2 [Moles/Vol] 29.0 mmol/L Normal 21.0-32.[address] [facility] Comment on above: Performed By: #### L 500.4050 ####[facility] [address] [place], [address] Creatinine [Mass/Vol] 1.09 mg/dL High 0.55-1.02 [facility] Comment on above: Result Comment: The validity of the calculated GFR GFRAA in patients over70 years has not been determined. Clinical correlation isessential. Performed By: #### L 500.4050 ####[facility] [address] [place], [address] ECRCL 63.06 ml/min Normal [facility] Comment on above: Performed By: #### L 500.4050 ####[facility] [address] [place], [address] EST GFR - AA 63 mL/min Normal >[address] [facility] Comment on above: Result Comment: Afri can Malagasy GFR Calc Performed By: #### L 500.4050 ####[facility] [address] [place], [address] GAP 6 Normal 5-[address] [facility] Comment on above: Performed By: #### L 500.4050 ####[facility] [address] [place], [address] GFR/1.73 sq M.predicted among non-blacks MDRD (S/P/Bld) [Vol rate/Area] 52 mL/min/{1.73_m2} Low >[address] [facility] Comment on above: Result Comment: Non- GFR Calc Performed By: #### L 500.4050 ####[facility] [address] [place], [address] Globulin (S) [Mass/Vol] 2.9 g/dL Normal 2.2-4.[address] [facility] Comment on above: Performed By: #### L 500.4050 ####[facility] [address] [place], [address] Glucose [Mass/Vol] 233 mg/dL High 74-106 [facility] Comment on above: Result Comment: Gluc ose result greater than or equal to 200 mg/dLsuggests DIABETES MELLITUS per A.D.A. criteria. Performed By: #### L 500.4050 ####[facility] [address] [place], [address] Potassium [Moles/Vol] 3.3 mmol/L Low 3.5-5.1 [facility] Comment on above: Performed By: #### L 500.4050 ####[facility] [address] [place], [address] Sodium [Moles/Vol] 140 mmol/L Normal 136-145 [facility] Comment on above: Performed By: #### L 500.4050 ####[facility] [address] [place], [address] T PROT 4.6 g/dL Low 6.4-8.[address] [facility] Comment on above: Performed By: #### L 500.4050 ####[facility] [address] [place], [address] Urea nitrogen [Mass/Vol] 27 mg/dL High 7-[address] [facility] Comment on above: Performed By: #### L 500.4050 ####[facility] [address] [place], [address] Urine Cultureon 01-04-2024 URC Normal [facility] Comment on above: Performed By: #### L 400.0001, M100.678, M100.2200 ####[facility] [address] [place], [address] Vancomycin, Random Levelon 0 01-04-2024 VANCO, RANDOM 29.0 ug/mL High 0.0-15.[address] [facility] Comment on above: Result Comment: VANC OMYCIN STANDARD DRUG THERAPY: CRITICAL VALUE IS > 15.0 mg/LVANCOMYCIN HIGH INTENSITY THERAPY: CRITICAL VALUE IS > 20.0 mg/LPLEASE CONTACT PHARMACY SERVICES (#9447) FOR INTERPRETATIONOF RESULTS. THIS RESULT DOES NOT REPRESENT A PEAK OR TROUGHLEVEL FOR THIS DRUG. Performed By: #### L 501.8850 ####[facility] [address] [place], [address] CBC W/Diff, Automatedon 12-09 Absolute Lymph 1.06 X10 3/uL Normal 0.83-4.[address] [facility] Comment on above: Performed By: #### L 100.0100 ####[facility] [address] [place], [address] Absolute Neut 11.3 X10 3/uL High 2.0-7.[address] [facility] Comment on above: Performed By: #### L 100.0100 ####[facility] [address] [place], [address] Basophils/100 WBC (Bld) 0.2 % Normal 0-[address] [facility] Comment on above: Performed By: #### L 100.0100 ####[facility] [address] [place], [address] Eosinophils/100 WBC (Bld) 0.0 % Normal 0-[address] [facility] Comment on above: Performed By: #### L 100.0100 ####[facility] [address] [place], [address] Erythrocyte distribution width (RBC) [Ratio] 18.1 % High 11.6-14.[address] [facility] Comment on above: Performed By: #### L 100.0100 ####[facility] [address] [place], [address] Hematocrit (Bld) [Volume fraction] 33.7 % Low 37-[address] [facility] Comment on above: Performed By: #### L 100.0100 ####[facility] [address] [place], [address] Hemoglobin (Bld) [Mass/Vol] 10.0 g/dL Low 12.0-15.[address] [facility] Comment on above: Performed By: #### L 100.0100 ####[facility] [address] [place], [address] IG% 0.600 Normal 0.0-0.[address] [facility] Comment on above: Result Comment: IG% - Immature Granulocytes (promyelocytes, myelocytes andmetamyelocytes) > 1% indicates that a LEFT SHIFT is Present. Performed By: #### L 100.0100 ####[facility] [address] [place], [address] Lymphocytes/100 WBC (Bld) 8.2 % Low 19-[address] [facility] Comment on above: Performed By: #### L 100.0100 ####[facility] [address] [place], [address] MCH (RBC) [Entitic mass] 25.7 pg Low 27.0-32.[address] [facility] Comment on above: Performed By: #### L 100.0100 ####[facility] [address] [place], [address] MCHC (RBC) [Mass/Vol] 29.7 g/dL Low 32-36 [facility] Comment on above: Performed By: #### L 100.0100 ####[facility] [address] [place], [address] MCV (RBC) [Entitic vol] 86.6 fL Normal 81-[address] [facility] Comment on above: Performed By: #### L 100.0100 ####[facility] [address] [place], [address] Monocytes/100 WBC (Bld) 3.5 % Normal 0-[address] [facility] Comment on above: Performed By: #### L 100.0100 ####[facility] [address] [place], [address] Neutrophils/100 WBC (Bld) 87.5 % High 47-[address] [facility] Comment on above: Performed By: #### L 100.0100 ####[facility] [address] [place], [address] Nucleated RBC (Bld) [#/Vol] 0 10*3/uL Normal 0-[address] [facility] Comment on above: Performed By: #### L 100.0100 ####[facility] [address] [place], [address] Platelet mean volume (Bld) [Entitic vol] 9.4 fL Normal 6.2-12.[address] [facility] Comment on above: Performed By: #### L 100.0100 ####[facility] [address] [place], [address] Platelets (Bld) [#/Vol] 287 10*3/uL Normal 150-[address] [facility] Comment on above: Performed By: #### L 100.0100 ####[facility] [address] [place], [address] RBC (Bld) [#/Vol] 3.89 10*6/uL Low 4.2-5.4 [facility] Comment on above: Performed By: #### L 100.0100 ####[facility] [address] [place], [address] RDW SD 57.3 fl High 35.1-43.[address] [facility] Comment on above: Performed By: #### L 100.0100 ####[facility] [address] [place], [address] WBC (Bld) [#/Vol] 12.9 10*3/uL High 4.4-11.0 [facility] Comment on above: Performed By: #### L 100.0100 ####[facility] [address] [place], [address] Comprehensive Metabolic Prof ilon 01-03-2024 Albumin [Mass/Vol] 1.8 g/dL Low 3.2-5.0 [facility] Comment on above: Performed By: #### L 500.4050 ####[facility] [address] [place], [address] Albumin/Globulin [Mass ratio] 0.6 {ratio} Low 0.9-2.[address] [facility] Comment on above: Performed By: #### L 500.4050 ####[facility] [address] [place], [address] ALK P 141 U/L High 45-[address] [facility] Comment on above: Performed By: #### L 500.4050 ####[facility] [address] [place], [address] ALT [Catalytic activity/Vol] 18 U/L Normal 13-[address] [facility] Comment on above: Performed By: #### L 500.4050 ####[facility] [address] [place], [address] AST [Catalytic activity/Vol] 27 U/L Normal 15-[address] [facility] Comment on above: Performed By: #### L 500.4050 ####[facility] [address] [place], [address] Bilirubin [Mass/Vol] 0.30 mg/dL Normal 0.20-1.00 [place] Comment on above: Result Comment: For patients on eltrombopag therapy, use of Dimension [place] TBIL is not recommended. Performed By: #### L 500.4050 ####[facility] [address] [place], [address] BUN/CRE 25.0 RATIO High 10-[address] [facility] Comment on above: Performed By: #### L 500.4050 ####[facility] [address] [place], [address] CA,Total 7.9 mg/dL Low 8.5-10.[address] [facility] Comment on above: Performed By: #### L 500.4050 ####[facility] [address] [place], [address] Chloride [Moles/Vol] 107 mmol/L Normal 98-107 [facility] Comment on above: Performed By: #### L 500.4050 ####[facility] [address] [place], [address] CO2 [Moles/Vol] 27.0 mmol/L Normal 21.0-32.[address] [facility] Comment on above: Performed By: #### L 500.4050 ####[facility] [address] [place], [address] Creatinine [Mass/Vol] 1.04 mg/dL High 0.55-1.02 [facility] Comment on above: Result Comment: The validity of the calculated GFR GFRAA in patients over70 years has not been determined. Clinical correlation isessential. Performed By: #### L 500.4050 ####[facility] [address] [place], [address] ECRCL 64.35 ml/min Normal [facility] Comment on above: Performed By: #### L 500.4050 ####[facility] [address] [place], [address] EST GFR - AA 66 mL/min Normal >[address] [facility] Comment on above: Result Comment: Afri can Malagasy GFR Calc Performed By: #### L 500.4050 ####[facility] [address] [place], [address] GAP 8 Normal 5-[address] [facility] Comment on above: Performed By: #### L 500.4050 ####[facility] [address] [place], [address] GFR/1.73 sq M.predicted among non-blacks MDRD (S/P/Bld) [Vol rate/Area] 55 mL/min/{1.73_m2} Low >[address] [facility] Comment on above: Result Comment: Non- GFR Calc Performed By: #### L 500.4050 ####[facility] [address] [place], [address] Globulin (S) [Mass/Vol] 3.0 g/dL Normal 2.2-4.[address] [facility] Comment on above: Performed By: #### L 500.4050 ####[facility] [address] [place], [address] Glucose [Mass/Vol] 183 mg/dL High 74-106 [facility] Comment on above: Result Comment: Fast ing Glucose result greater than or equal to 126 mg/dLsuggests DIABETES MELLITUS per A.D.A. criteria. Performed By: #### L 500.4050 ####[facility] [address] [place], [address] Potassium [Moles/Vol] 3.8 mmol/L Normal 3.5-5.1 [facility] Comment on above: Performed By: #### L 500.4050 ####[facility] [address] [place], [address] Sodium [Moles/Vol] 142 mmol/L Normal 136-145 [facility] Comment on above: Performed By: #### L 500.4050 ####[facility] [address] [place], [address] T PROT 4.8 g/dL Low 6.4-8.[address] [facility] Comment on above: Performed By: #### L 500.4050 ####[facility] [address] [place], [address] Urea nitrogen [Mass/Vol] 26 mg/dL High 7-[address] [facility] Comment on above: Performed By: #### L 500.4050 ####[facility] [address] [place], [address] Culture, Blood (WB)on 2023 CUB Normal [facility] Comment on above: Performed By: #### M 200.1000 ####[facility] [address] [place], [place], [address] Vancomycin, Random Levelon 0 01-03-2024 VANCO, RANDOM 34.5 ug/mL High 0.0-15.[address] [facility] Comment on above: Result Comment: VANC OMYCIN STANDARD DRUG THERAPY: CRITICAL VALUE IS > 15.0 mg/LVANCOMYCIN HIGH INTENSITY THERAPY: CRITICAL VALUE IS > 20.0 mg/LPLEASE CONTACT PHARMACY SERVICES (#3195) FOR INTERPRETATIONOF RESULTS. THIS RESULT DOES NOT REPRESENT A PEAK OR TROUGHLEVEL FOR THIS DRUG. Performed By: #### L 501.8850 ####[facility] [address] [facility] [address] Basic Metabolic Profile (BMP )on 01-02-2024 BUN Normal 7-[address] [facility] Comment on above: Result Comment: @OK TO CANCEL PER C.LUCIA DUPLICATE ORDER Performed By: #### L 500.2500 ####[facility] [address] [place], [place], [address] BUN/CRE Normal 10-[address] [facility] Comment on above: Result Comment: @OK TO CANCEL PER C.LUCIA DUPLICATE ORDER Performed By: #### L 500.2500 ####[facility] [address] [place], [address] CA,Total Normal 8.5-10.[address] [facility] Comment on above: Result Comment: @OK TO CANCEL PER C.LUCIA DUPLICATE ORDER Performed By: #### L 500.2500 ####[facility] [address] [place], [address] CL Normal 98-[address] [facility] Comment on above: Result Comment: @OK TO CANCEL PER C.LCUIA DUPLICATE ORDER Performed By: #### L 500.2500 ####[facility] [address] [place], [address] CO2 Normal 21.0-32.[address] [facility] Comment on above: Result Comment: @OK TO CANCEL PER C.LUCIA DUPLICATE ORDER Performed By: #### L 500.2500 ####[facility] [address] [place], [address] CREAT,SERUM Normal 0.55-1.[address] [facility] Comment on above: Result Comment: @OK TO CANCEL PER C.LUCIA DUPLICATE ORDER Performed By: #### L 500.2500 ####[facility] [address] [place], [address] EST GFR Normal >[address] [facility] Comment on above: Result Comment: @OK TO CANCEL PER C.LUCIA DUPLICATE ORDER Performed By: #### L 500.2500 ####[facility] [address] [place], [address] EST GFR - AA Normal >[address] [facility] Comment on above: Result Comment: @OK TO CANCEL PER C.LUCIA DUPLICATE ORDER Performed By: #### L 500.2500 ####[facility] [address] [place], [address] GAP Normal 5-[address] [facility] Comment on above: Result Comment: @OK TO CANCEL PER C.LUCIA DUPLICATE ORDER Performed By: #### L 500.2500 ####[facility] [facility] [address] [place], [address] GLU Normal 74-[address] [facility] Comment on above: Result Comment: @OK TO CANCEL PER C.LUCIA DUPLICATE ORDER Performed By: #### L 500.2500 ####[facility] [address] [place], [address] Potassium Normal 3.5-5.[address] [facility] Comment on above: Result Comment: @OK TO CANCEL PER C.LUCIA DUPLICATE ORDER Performed By: #### L 500.2500 ####[facility] [address] [place], [address] Basic Metabolic Profile (BMP) Normal 136-[address] [facility] Comment on above: Result Comment: @OK TO CANCEL PER KATARINA DUPLICATE ORDER Performed By: #### L 500.2500 ####[facility] [address] [place], [address] BUN/CRE 35.1 RATIO High 10-[address] [facility] Comment on above: Performed By: #### L 500.2500, L501.5200 ####[facility] [address] [place], [address] CA,Total 8.1 mg/dL Low 8.5-10.[address] [facility] Comment on above: Performed By: #### L 500.2500, L501.5200 ####[facility] [address] [place], [address] Chloride [Moles/Vol] 108 mmol/L High 98-107 [place] Comment on above: Performed By: #### L 500.2500, L501.5200 ####[facility] [address] [place], [address] CO2 [Moles/Vol] 29.0 mmol/L Normal 21.0-32.[address] [facility] Comment on above: Performed By: #### L 500.2500, L501.5200 ####[facility] [address] [place], [address] Creatinine [Mass/Vol] 0.66 mg/dL Normal 0.55-1.02 [facility] Comment on above: Result Comment: The validity of the calculated GFR GFRAA in patients over70 years has not been determined. Clinical correlation isessential. Performed By: #### L 500.2500, L501.5200 ####[facility] [address] [place], [address] ECRCL 83.81 ml/min Normal [facility] Comment on above: Performed By: #### L 500.2500, L501.5200 ####[facility] [address] [place], [address] EST GFR - AA 113 mL/min Normal >[address] [facility] Comment on above: Result Comment: Afri can Malagasy GFR Calc Performed By: #### L 500.2500, L501.5200 ####[facility] [address] [place], [address] GAP 6 Normal 5-[address] [facility] Comment on above: Performed By: #### L 500.2500, L501.5200 ####[facility] [address] [place], [address] GFR/1.73 sq M.predicted among non-blacks MDRD (S/P/Bld) [Vol rate/Area] 93 mL/min/{1.73_m2} Normal >[address] [facility] Comment on above: Result Comment: Non- GFR Calc Performed By: #### L 500.2500, L501.5200 ####[facility] [address] [place], [address] Glucose [Mass/Vol] 165 mg/dL High 74-106 [facility] Comment on above: Result Comment: Fast ing Glucose result greater than or equal to 126 mg/dLsuggests DIABETES MELLITUS per A.D.A. criteria. Performed By: #### L 500.2500, L501.5200 ####[facility] [address] [place], [address] Potassium [Moles/Vol] 4.0 mmol/L Normal 3.5-5.1 [facility] Comment on above: Performed By: #### L 500.2500, L501.5200 ####[facility] [address] [place], [address] Sodium [Moles/Vol] 143 mmol/L Normal 136-145 [facility] Comment on above: Performed By: #### L 500.2500, L501.5200 ####[facility] [address] [place], [address] Urea nitrogen [Mass/Vol] 23 mg/dL High 7-[address] [facility] Comment on above: Performed By: #### L 500.2500, L501.5200 ####[facility] [address] [place], [address] Consultation - Infectious Dx on 01-02-2024 Consultation - Infectious Dx Normal [facility] Magnesiumon 01-02-2024 Magnesium [Mass/Vol] 1.7 mg/dL Normal 1.6-2.6 [place] Comment on above: Performed By: #### L 500.2500, L501.5200 ####[facility] [address] [place], [address] Vancomycin, Trough Levelon 0 01-02-2024 VANCO, TROUGH 43.5 ug/mL High 5.0-15.[address] [facility] Comment on above: Order Comment: Comme nts: Trough to be drawn 30 mins prior to scheduled [id number] Result Comment: VANC OMYCIN STANDARED DRUG THERAPY TROUGH LEVEL: 5.0 - 15.0 mg/LVANCOMYCIN HIGH INTENSITY THERAPY TROUGH LEVEL: 15.0 - 20.0 mg/LHigh Intensity therapy recommended for serious lifethreatening infections include:- Lmkzihbyla-Mxybfhiozirv-Ahastxfmx (Ventilator/Healtcare Associated)-SepsisPLEASE CONTACT PHARMACY SERVICES (#7376) FOR INTERPRETATIONOF RESULTS. Performed By: #### L 501.8820 ####[facility] [address] [place], [address] Alcohol, Blood (Medical)-Ser umon 01-01-2024 SERUM ETOH 5.0 mg/dL Normal [facility] Comment on above: Result Comment: The serum:whole blood ethanol ratio is approximately 1.14and varies slightly with hematocrit.Medical Alcohol reference interval and critical value innon-tolerant individuals; 50 - 100 Impairment 100 Intoxication 100 - 250 Severe Poisoning 250 - 400 Deep/possible fatal coma Performed By: #### L 505.5000, L506.0250, L501.9100 ####[facility] [address] [place], [address] CBC W/Diff, Automatedon 12-09 Absolute Lymph 0.64 X10 3/uL Low 0.83-4.[address] [facility] Comment on above: Performed By: #### L 100.0100, L500.4050, L501.2300, L501.5200, L501.9520 ####[facility] [address] [place], [address] Absolute Neut 4.9 X10 3/uL Normal 2.0-7.[address] [facility] Comment on above: Performed By: #### L 100.0100, L500.4050, L501.2300, L501.5200, L501.9520 ####[facility] [address] [place], [address] Basophils/100 WBC (Bld) 0.4 % Normal 0-[address] [facility] Comment on above: Performed By: #### L 100.0100, L500.4050, L501.2300, L501.5200, L501.9520 ####[facility] [address] [place], [address] Eosinophils/100 WBC (Bld) 0.4 % Normal 0-[address] [facility] Comment on above: Performed By: #### L 100.0100, L500.4050, L501.2300, L501.5200, L501.9520 ####[facility] [address] [place], [address] Erythrocyte distribution width (RBC) [Ratio] 17.4 % High 11.6-14.[address] [facility] Comment on above: Performed By: #### L 100.0100, L500.4050, L501.2300, L501.5200, L501.9520 ####[facility] [address] [place], [address] Hematocrit (Bld) [Volume fraction] 31.3 % Low 37-[address] [facility] Comment on above: Performed By: #### L 100.0100, L500.4050, L501.2300, L501.5200, L501.9520 ####[facility] [address] [place], [address] Hemoglobin (Bld) [Mass/Vol] 9.3 g/dL Low 12.0-15.[address] [facility] Comment on above: Performed By: #### L 100.0100, L500.4050, L501.2300, L501.5200, L501.9520 ####[facility] [address] [place], [address] IG% 0.500 Normal 0.0-0.[address] [facility] Comment on above: Result Comment: IG% - Immature Granulocytes (promyelocytes, myelocytes andmetamyelocytes) > 1% indicates that a LEFT SHIFT is Present. Performed By: #### L 100.0100, L500.4050, L501.2300, L501.5200, L501.9520 ####[facility] [address] [place], [address] Lymphocytes/100 WBC (Bld) 11.3 % Low 19-[address] [facility] Comment on above: Performed By: #### L 100.0100, L500.4050, L501.2300, L501.5200, L501.9520 ####[facility] [address] [place], [address] MCH (RBC) [Entitic mass] 25.3 pg Low 27.0-32.[address] [facility] Comment on above: Performed By: #### L 100.0100, L500.4050, L501.2300, L501.5200, L501.9520 ####[facility] [address] [place], [address] MCHC (RBC) [Mass/Vol] 29.7 g/dL Low 32-36 [facility] Comment on above: Performed By: #### L 100.0100, L500.4050, L501.2300, L501.5200, L501.9520 ####[facility] [address] [place], [address] MCV (RBC) [Entitic vol] 85.1 fL Normal 81-[address] [facility] Comment on above: Performed By: #### L 100.0100, L500.4050, L501.2300, L501.5200, L501.9520 ####[facility] [address] [place], [address] Monocytes/100 WBC (Bld) 1.1 % Normal 0-[address] [facility] Comment on above: Performed By: #### L 100.0100, L500.4050, L501.2300, L501.5200, L501.9520 ####[facility] [address] [place], [address] Neutrophils/100 WBC (Bld) 86.3 % High 47-[address] [facility] Comment on above: Performed By: #### L 100.0100, L500.4050, L501.2300, L501.5200, L501.9520 ####[facility] [address] [place], [address] Nucleated RBC (Bld) [#/Vol] 0 10*3/uL Normal 0-[address] [facility] Comment on above: Performed By: #### L 100.0100, L500.4050, L501.2300, L501.5200, L501.9520 ####[facility] [address] [place], [address] Platelet mean volume (Bld) [Entitic vol] 9.2 fL Normal 6.2-12.[address] [facility] Comment on above: Performed By: #### L 100.0100, L500.4050, L501.2300, L501.5200, L501.9520 ####[facility] [address] [place], [address] Platelets (Bld) [#/Vol] 196 10*3/uL Normal 150-[address] [facility] Comment on above: Performed By: #### L 100.0100, L500.4050, L501.2300, L501.5200, L501.9520 ####[facility] [address] [place], [address] RBC (Bld) [#/Vol] 3.68 10*6/uL Low 4.2-5.4 [facility] Comment on above: Performed By: #### L 100.0100, L500.4050, L501.2300, L501.5200, L501.9520 ####[facility] [address] [place], [address] RDW SD 54.6 fl High 35.1-43.[address] [facility] Comment on above: Performed By: #### L 100.0100, L500.4050, L501.2300, L501.5200, L501.9520 ####[facility] [address] [place], [address] WBC (Bld) [#/Vol] 5.7 10*3/uL Normal 4.4-11.0 [facility] Comment on above: Performed By: #### L 100.0100, L500.4050, L501.2300, L501.5200, L501.9520 ####[facility] [address] [place], [address] Chest 1 View (Portable)on Chest 1 View (Portable) Normal [facility] Comprehensive Metabolic Prof ilon 01-01-2024 Albumin [Mass/Vol] 1.4 g/dL Low 3.2-5.0 [facility] Comment on above: Performed By: #### L 100.0100, L500.4050, L501.2300, L501.5200, L501.9520 ####[facility] [address] [place], [address] Albumin/Globulin [Mass ratio] 0.5 {ratio} Low 0.9-2.[address] [facility] Comment on above: Performed By: #### L 100.0100, L500.4050, L501.2300, L501.5200, L501.9520 ####[facility] [address] [place], [address] ALK P 128 U/L High 45-[address] [facility] Comment on above: Performed By: #### L 100.0100, L500.4050, L501.2300, L501.5200, L501.9520 ####[facility] [address] [place], [address] ALT [Catalytic activity/Vol] 12 U/L Low 13-[address] [facility] Comment on above: Performed By: #### L 100.0100, L500.4050, L501.2300, L501.5200, L501.9520 ####[facility] [address] [place], [address] AST [Catalytic activity/Vol] 15 U/L Normal 15-[address] [facility] Comment on above: Performed By: #### L 100.0100, L500.4050, L501.2300, L501.5200, L501.9520 ####[facility] [address] [place], [address] Bilirubin [Mass/Vol] 0.30 mg/dL Normal 0.20-1.00 [place] Comment on above: Result Comment: For patients on eltrombopag therapy, use of Dimension [place] TBIL is not recommended. Performed By: #### L 100.0100, L500.4050, L501.2300, L501.5200, L501.9520 ####[facility] [address] [place], [address] BUN/CRE 43.7 RATIO High 10-[address] [facility] Comment on above: Performed By: #### L 100.0100, L500.4050, L501.2300, L501.5200, L501.9520 ####[facility] [address] [place], [address] CA,Total 7.4 mg/dL Low 8.5-10.[address] [facility] Comment on above: Performed By: #### L 100.0100, L500.4050, L501.2300, L501.5200, L501.9520 ####[facility] [address] [place], [address] Chloride [Moles/Vol] 109 mmol/L High 98-107 [place] Comment on above: Performed By: #### L 100.0100, L500.4050, L501.2300, L501.5200, L501.9520 ####[facility] [address] [place], [address] CO2 [Moles/Vol] 29.0 mmol/L Normal 21.0-32.[address] [facility] Comment on above: Performed By: #### L 100.0100, L500.4050, L501.2300, L501.5200, L501.9520 ####[facility] [address] [place], [address] Creatinine [Mass/Vol] 0.46 mg/dL Low 0.55-1.02 [facility] Comment on above: Result Comment: The validity of the calculated GFR GFRAA in patients over70 years has not been determined. Clinical correlation isessential. Performed By: #### L 100.0100, L500.4050, L501.2300, L501.5200, L501.9520 ####[facility] [address] [place], [address] ECRCL 83.43 ml/min Normal [facility] Comment on above: Performed By: #### L 100.0100, L500.4050, L501.2300, L501.5200, L501.9520 ####[facility] [address] [place], [address] EST GFR - AA 171 mL/min Normal >[address] [facility] Comment on above: Result Comment: Afri can Malagasy GFR Calc Performed By: #### L 100.0100, L500.4050, L501.2300, L501.5200, L501.9520 ####[facility] [address] [place], [address] GAP 5 Normal 5-[address] [facility] Comment on above: Performed By: #### L 100.0100, L500.4050, L501.2300, L501.5200, L501.9520 ####[facility] [address] [place], [address] GFR/1.73 sq M.predicted among non-blacks MDRD (S/P/Bld) [Vol rate/Area] 141 mL/min/{1.73_m2} Normal >[address] [facility] Comment on above: Result Comment: Non- GFR Calc Performed By: #### L 100.0100, L500.4050, L501.2300, L501.5200, L501.9520 ####[facility] [address] [place], [address] Globulin (S) [Mass/Vol] 3.0 g/dL Normal 2.2-4.[address] [facility] Comment on above: Performed By: #### L 100.0100, L500.4050, L501.2300, L501.5200, L501.9520 ####[facility] [address] [place], [address] Glucose [Mass/Vol] 151 mg/dL High 74-106 [facility] Comment on above: Result Comment: Fast ing Glucose result greater than or equal to 126 mg/dLsuggests DIABETES MELLITUS per A.D.A. criteria. Performed By: #### L 100.0100, L500.4050, L501.2300, L501.5200, L501.9520 ####[facility] [address] [place], [address] Potassium [Moles/Vol] 3.7 mmol/L Normal 3.5-5.1 [facility] Comment on above: Performed By: #### L 100.0100, L500.4050, L501.2300, L501.5200, L501.9520 ####[facility] [address] [place], [address] Sodium [Moles/Vol] 143 mmol/L Normal 136-145 [facility] Comment on above: Performed By: #### L 100.0100, L500.4050, L501.2300, L501.5200, L501.9520 ####[facility] [address] [place], [address] T PROT 4.4 g/dL Low 6.4-8.[address] [facility] Comment on above: Performed By: #### L 100.0100, L500.4050, L501.2300, L501.5200, L501.9520 ####[facility] [address] [place], [address] Urea nitrogen [Mass/Vol] 20 mg/dL High 7-[address] [facility] Comment on above: Performed By: #### L 100.0100, L500.4050, L501.2300, L501.5200, L501.9520 ####[facility] [address] [place], [address] Echo Completeon 01-01-2024 Echo Complete Normal [facility] Magnesiumon 01-01-2024 Magnesium [Mass/Vol] 1.4 mg/dL Low 1.6-2.6 [place] Comment on above: Performed By: #### L 100.0100, L500.4050, L501.2300, L501.5200, L501.9520 ####[facility] [address] [place], [address] Phosphoruson 01-01-2024 Phosphate [Mass/Vol] 3.4 mg/dL Normal 2.5-4.9 [place] Comment on above: Performed By: #### L 100.0100, L500.4050, L501.2300, L501.5200, L501.9520 ####[facility] [address] [place], [address] Thyroid Stim Hormone (TSH)on 01-01-2024 TSH 1.650 uIU/mL Normal 0.358-3.[address] [facility] Comment on above: Performed By: #### L 100.0100, L500.4050, L501.2300, L501.5200, L501.9520 ####[facility] [address] [place], [address] Urine Drug Screen (VISTA)on 01-01-2024 VISTA UDS PH [address] [facility] Comment on above: Result Comment: AMENDED REPORT 01/01/24 06 VISTA UDS PH previously reported as: 5 Performed By: #### L 505.5000, L506.0250, L501.9100 ####[facility] [address] [place], [address] Venous Blood Gason 4 Blood Gas Type SOLIS Normal [facility] Comment on above: Performed By: #### L 0.0810 ####[facility] [address] [place], [address] CO2 [Moles/Vol] 29 mmol/L Normal 23-[address] [facility] Comment on above: Performed By: #### L 8999.0810 ####[facility] [address] [place], [address] FI02 30.[address] [facility] Comment on above: Performed By: #### L 0.0810 ####[facility] [address] [place], [address] HCO3 (Bld) [Moles/Vol] 28 mmol/L High 22-26 [facility] Comment on above: Performed By: #### L 8999.0810 ####[facility] [address] [place], [address] O2 Delivery Dev BiPAP Normal [facility] Comment on above: Performed By: #### L 8999.0810 ####[facility] [address] [place], [address] SITE Not entered Normal [facility] Comment on above: Performed By: #### L 0.0810 ####[facility] [address] [place], [address] VBG BE 4 mmol/L High -1.0-3.[address] [facility] Comment on above: Performed By: #### L 900.0810 ####[facility] [address] [place], [address] VBG pCO2 38.9 mmHg Low 41-[address] [facility] Comment on above: Performed By: #### L 8999.0810 ####[facility] [address] [place], [address] VBG pH 7.47 High 7.32-7.[address] [facility] Comment on above: Performed By: #### L 9000.0810 ####[facility] [address] [place], [address] VBG PO2 51 mmHg High 25-[address] [facility] Comment on above: Performed By: #### L 9000.0810 ####[facility] [address] [place], [address] VBG SO2 88 High 50-[address] [facility] Comment on above: Performed By: #### L 9000.0810 ####[facility] [address] [place], [address] 12 Lead EKGon 12-31-2023 12 Lead EKG Normal [facility] Ammoniaon 12-31-2023 Ammonia (P) [Moles/Vol] 19.0 umol/L Normal 11-[address] [facility] Comment on above: Performed By: #### L 503.5510 ####[facility] [address] [place], [address] BNP,B-Type NATRIURETIC PEPTI Larry 12-31-2023 Natriuretic peptide B (Bld) [Mass/Vol] 566.6 pg/mL High 0-[address] [facility] Comment on above: Performed By: #### L 503.6620 ####[facility] [address] [place], [address] Blood Gases by CPSon 024 ANUJ TEST Positive Normal [facility] Comment on above: Performed By: #### L 9000.0800 ####[facility] [address] [place], [address] Base excess Calc (Bld) [Moles/Vol] 9 mmol/L High -2 to +[address] [facility] Comment on above: Performed By: #### L 9000.0800 ####[facility] [address] [place], [address] Blood Gas Type ART Normal [facility] Comment on above: Performed By: #### L 8999.08 ####[facility] [address] [place], [address] CO2 [Moles/Vol] 34 mmol/L Normal [facility] Comment on above: Performed By: #### L 8999.08 ####[facility] [address] [place], [address] FI02 50.[address] [facility] Comment on above: Performed By: #### L 8999.0800 ####[facility] [address] [place], [address] HCO3 (Bld) [Moles/Vol] 32.6 mmol/L High 22-26 [facility] Comment on above: Performed By: #### L 8999.08 ####[facility] [address] [place], [address] Mode Not entered Normal [facility] Comment on above: Performed By: #### L 8999.08 ####[facility] [address] [place], [address] O2 Delivery Dev BiPAP Normal [facility] Comment on above: Performed By: #### L 8999.0800 ####[facility] [address] [place], [address] pCO2 45.3 mmHg High 35-[address] [facility] Comment on above: Performed By: #### L 8999.08 ####[facility] [address] [place], [address] PEEP [address] [facility] Comment on above: Performed By: #### L 8999.0800 ####[facility] [address] [place], [address] pH (Bld) 7.47 [pH] High 7.35-7.[address] [facility] Comment on above: Performed By: #### L 9000.0800 ####[facility] [address] [place], [address] PIP [address] [facility] Comment on above: Performed By: #### L 9000.0800 ####[facility] [address] [place], [address] PO2 198 mmHG High 75-[address] [facility] Comment on above: Performed By: #### L 9000.0800 ####[facility] [address] [place], [address] [address] [facility] Comment on above: Performed By: #### L 9000.0800 ####[facility] [address] [place], [address] SITE L Radial Normal [facility] Comment on above: Performed By: #### L 9000.0800 ####[facility] [address] [place], [address] SO2 100 High 95-99 [facility] [facility] Comment on above: Performed By: #### L 9000.0800 ####[facility] [address] [place], [address] CBC W/Diff, Automatedon 12-09 Absolute Lymph 1.86 X10 3/uL Normal 0.83-4.[address] [facility] Comment on above: Performed By: #### L 100.0100, L300.3900, L300.4310, L500.4050, L501.4020, L503.6005 ####[facility] [address] [place], [address] Absolute Neut 4.9 X10 3/uL Normal 2.0-7.[address] [facility] Comment on above: Performed By: #### L 100.0100, L300.3900, L300.4310, L500.4050, L501.4020, L503.6005 ####[facility] [address] [place], [address] Basophils/100 WBC (Bld) 0.7 % Normal 0-[address] [facility] Comment on above: Performed By: #### L 100.0100, L300.3900, L300.4310, L500.4050, L501.4020, L503.6005 ####[facility] [address] [place], [address] Eosinophils/100 WBC (Bld) 2.9 % Normal 0-[address] [facility] Comment on above: Performed By: #### L 100.0100, L300.3900, L300.4310, L500.4050, L501.4020, L503.6005 ####[facility] [address] [place], [address] Erythrocyte distribution width (RBC) [Ratio] 17.7 % High 11.6-14.[address] [facility] Comment on above: Performed By: #### L 100.0100, L300.3900, L300.4310, L500.4050, L501.4020, L503.6005 ####[facility] [address] [place], [address] Hematocrit (Bld) [Volume fraction] 32.8 % Low 37-[address] [facility] Comment on above: Performed By: #### L 100.0100, L300.3900, L300.4310, L500.4050, L501.4020, L503.6005 ####[facility] [address] [place], [address] Hemoglobin (Bld) [Mass/Vol] 9.9 g/dL Low 12.0-15.[address] [facility] Comment on above: Performed By: #### L 100.0100, L300.3900, L300.4310, L500.4050, L501.4020, L503.6005 ####[facility] [address] [place], [address] IG% 0.400 Normal 0.0-0.[address] [facility] Comment on above: Result Comment: IG% - Immature Granulocytes (promyelocytes, myelocytes andmetamyelocytes) > 1% indicates that a LEFT SHIFT is Present. Performed By: #### L 100.0100, L300.3900, L300.4310, L500.4050, L501.4020, L503.6005 ####[facility] [address] [place], [address] Lymphocytes/100 WBC (Bld) 24.3 % Normal 19-[address] [facility] Comment on above: Performed By: #### L 100.0100, L300.3900, L300.4310, L500.4050, L501.4020, L503.6005 ####[facility] [address] [place], [address] MCH (RBC) [Entitic mass] 25.8 pg Low 27.0-32.[address] [facility] Comment on above: Performed By: #### L 100.0100, L300.3900, L300.4310, L500.4050, L501.4020, L503.6005 ####[facility] [address] [place], [address] MCHC (RBC) [Mass/Vol] 30.2 g/dL Low 32-36 [facility] Comment on above: Performed By: #### L 100.0100, L300.3900, L300.4310, L500.4050, L501.4020, L503.6005 ####[facility] [address] [place], [address] MCV (RBC) [Entitic vol] 85.6 fL Normal 81-[address] [facility] Comment on above: Performed By: #### L 100.0100, L300.3900, L300.4310, L500.4050, L501.4020, L503.6005 ####[facility] [address] [place], [address] Monocytes/100 WBC (Bld) 7.8 % Normal 0-[address] [facility] Comment on above: Performed By: #### L 100.0100, L300.3900, L300.4310, L500.4050, L501.4020, L503.6005 ####[facility] [address] [place], [address] Neutrophils/100 WBC (Bld) 63.9 % Normal 47-[address] [facility] Comment on above: Performed By: #### L 100.0100, L300.3900, L300.4310, L500.4050, L501.4020, L503.6005 ####[facility] [address] [place], [address] Nucleated RBC (Bld) [#/Vol] 0 10*3/uL Normal 0-[address] [facility] Comment on above: Performed By: #### L 100.0100, L300.3900, L300.4310, L500.4050, L501.4020, L503.6005 ####[facility] [address] [place], [address] Platelet mean volume (Bld) [Entitic vol] 9.1 fL Normal 6.2-12.[address] [facility] Comment on above: Performed By: #### L 100.0100, L300.3900, L300.4310, L500.4050, L501.4020, L503.6005 ####[facility] [address] [place], [address] Platelets (Bld) [#/Vol] 239 10*3/uL Normal 150-[address] [facility] Comment on above: Performed By: #### L 100.0100, L300.3900, L300.4310, L500.4050, L501.4020, L503.6005 ####[facility] [address] [place], [address] RBC (Bld) [#/Vol] 3.83 10*6/uL Low 4.2-5.4 [facility] Comment on above: Performed By: #### L 100.0100, L300.3900, L300.4310, L500.4050, L501.4020, L503.6005 ####[facility] [address] [place], [address] RDW SD 55.0 fl High 35.1-43.[address] [facility] Comment on above: Performed By: #### L 100.0100, L300.3900, L300.4310, L500.4050, L501.4020, L503.6005 ####[facility] [address] [place], [address] WBC (Bld) [#/Vol] 7.7 10*3/uL Normal 4.4-11.0 [facility] Comment on above: Performed By: #### L 100.0100, L300.3900, L300.4310, L500.4050, L501.4020, L503.6005 ####[facility] [address] [place], [address] Absolute Lymph 2.18 X10 3/uL Normal 0.83-4.[address] [facility] Comment on above: Order Comment: 514.1 Performed By: #### L 100.0100, L501.8820, L500.4050, L501.6710 ####[facility] [address] [place], [address] Absolute Neut 5.0 X10 3/uL Normal 2.0-7.[address] [facility] Comment on above: Order Comment: 514.1 Performed By: #### L 100.0100, L501.8820, L500.4050, L501.6710 ####[facility] [address] [place], [address] Basophils/100 WBC (Bld) 0.7 % Normal 0-[address] [facility] Comment on above: Order Comment: 514.1 Performed By: #### L 100.0100, L501.8820, L500.4050, L501.6710 ####[facility] [address] [place], [address] Eosinophils/100 WBC (Bld) 3.8 % Normal 0-[address] [facility] Comment on above: Order Comment: 514.1 Performed By: #### L 100.0100, L501.8820, L500.4050, L501.6710 ####[facility] [address] [place], [address] Erythrocyte distribution width (RBC) [Ratio] 17.8 % High 11.6-14.[address] [facility] Comment on above: Order Comment: 514.1 Performed By: #### L 100.0100, L501.8820, L500.4050, L501.6710 ####[facility] [address] [place], [address] Hematocrit (Bld) [Volume fraction] 32.6 % Low 37-[address] [facility] Comment on above: Order Comment: 514.1 Performed By: #### L 100.0100, L501.8820, L500.4050, L501.6710 ####[facility] [address] [place], [address] Hemoglobin (Bld) [Mass/Vol] 9.7 g/dL Low 12.0-15.[address] [facility] Comment on above: Order Comment: 514.1 Performed By: #### L 100.0100, L501.8820, L500.4050, L501.6710 ####[facility] [address] [place], [address] IG% 0.200 Normal 0.0-0.[address] [facility] Comment on above: Order Comment: 514.1 Result Comment: IG% - Immature Granulocytes (promyelocytes, myelocytes andmetamyelocytes) > 1% indicates that a LEFT SHIFT is Present. Performed By: #### L 100.0100, L501.8820, L500.4050, L501.6710 ####[facility] [address] [place], [address] Lymphocytes/100 WBC (Bld) 26.6 % Normal 19-[address] [facility] Comment on above: Order Comment: 514.1 Performed By: #### L 100.0100, L501.8820, L500.4050, L501.6710 ####[facility] [address] [place], [address] MCH (RBC) [Entitic mass] 25.7 pg Low 27.0-32.[address] [facility] Comment on above: Order Comment: 514.1 Performed By: #### L 100.0100, L501.8820, L500.4050, L501.6710 ####[facility] [address] [place], [address] MCHC (RBC) [Mass/Vol] 29.8 g/dL Low 32-36 [facility] Comment on above: Order Comment: 514.1 Performed By: #### L 100.0100, L501.8820, L500.4050, L501.6710 ####[facility] [address] [place], [address] MCV (RBC) [Entitic vol] 86.2 fL Normal 81-[address] [facility] Comment on above: Order Comment: 514.1 Performed By: #### L 100.0100, L501.8820, L500.4050, L501.6710 ####[facility] [address] [place], [address] Monocytes/100 WBC (Bld) 7.4 % Normal 0-[address] [facility] Comment on above: Order Comment: 514.1 Performed By: #### L 100.0100, L501.8820, L500.4050, L501.6710 ####[facility] [address] [place], [address] Neutrophils/100 WBC (Bld) 61.3 % Normal 47-[address] [facility] Comment on above: Order Comment: 514.1 Performed By: #### L 100.0100, L501.8820, L500.4050, L501.6710 ####[facility] [address] [place], [address] Nucleated RBC (Bld) [#/Vol] 0 10*3/uL Normal 0-[address] [facility] Comment on above: Order Comment: 514.1 Performed By: #### L 100.0100, L501.8820, L500.4050, L501.6710 ####[facility] [address] [place], [address] Platelet mean volume (Bld) [Entitic vol] 9.8 fL Normal 6.2-12.[address] [facility] Comment on above: Order Comment: 514.1 Performed By: #### L 100.0100, L501.8820, L500.4050, L501.6710 ####[facility] [address] [place], [address] Platelets (Bld) [#/Vol] 220 10*3/uL Normal 150-[address] [facility] Comment on above: Order Comment: 514.1 Performed By: #### L 100.0100, L501.8820, L500.4050, L501.6710 ####[facility] [address] [place], [address] RBC (Bld) [#/Vol] 3.78 10*6/uL Low 4.2-5.4 [facility] Comment on above: Order Comment: 514.1 Performed By: #### L 100.0100, L501.8820, L500.4050, L501.6710 ####[facility] [address] [place], [address] RDW SD 55.7 fl High 35.1-43.[address] [facility] Comment on above: Order Comment: 514.1 Performed By: #### L 100.0100, L501.8820, L500.4050, L501.6710 ####[facility] [address] [place], [address] WBC (Bld) [#/Vol] 8.2 10*3/uL Normal 4.4-11.0 [facility] Comment on above: Order Comment: 514.1 Performed By: #### L 100.0100, L501.8820, L500.4050, L501.6710 ####[facility] [address] [place], [address] CRPon 12-31-2023 C-REACTIVE PROT 49.30 mg/L High 0.0-3.[address] [facility] Comment on above: Order Comment: 514.1 Result Comment: C-Re active Protein (CRP) provides useful information for thediagnosis, therapy and monitoring of inflammatory processesand associated diseases. For the evaluation of Relative Riskfor Cardiovascular Disease, a High Sensitivity CRP (HSCRP)should be ordered. Performed By: #### L 100.0100, L501.8820, L500.4050, L501.6710 ####[facility] [address] [place], [address] Chest 1 View (Portable)on Chest 1 View (Portable) Normal [facility] Comprehensive Metabolic Prof ilon 12-31-2023 Albumin [Mass/Vol] 1.4 g/dL Low 3.2-5.0 [facility] Comment on above: Order Comment: 'TROP ' Serial specimen #1, #2 or #3: 1 Performed By: #### L 100.0100, L300.3900, L300.4310, L500.4050, L501.4020, L503.6005 ####[facility] [address] [place], [address] Albumin/Globulin [Mass ratio] 0.4 {ratio} Low 0.9-2.[address] [facility] Comment on above: Order Comment: 'TROP ' Serial specimen #1, #2 or #3: 1 Performed By: #### L 100.0100, L300.3900, L300.4310, L500.4050, L501.4020, L503.6005 ####[facility] [address] [place], [address] ALK P 137 U/L High 45-[address] [facility] Comment on above: Order Comment: 'TROP ' Serial specimen #1, #2 or #3: 1 Performed By: #### L 100.0100, L300.3900, L300.4310, L500.4050, L501.4020, L503.6005 ####[facility] [address] [place], [address] ALT [Catalytic activity/Vol] 13 U/L Normal 13-[address] [facility] Comment on above: Order Comment: 'TROP ' Serial specimen #1, #2 or #3: 1 Performed By: #### L 100.0100, L300.3900, L300.4310, L500.4050, L501.4020, L503.6005 ####[facility] [address] [place], [address] AST [Catalytic activity/Vol] 21 U/L Normal 15-[address] [facility] Comment on above: Order Comment: 'TROP ' Serial specimen #1, #2 or #3: 1 Performed By: #### L 100.0100, L300.3900, L300.4310, L500.4050, L501.4020, L503.6005 ####[facility] [address] [place], [address] Bilirubin [Mass/Vol] 0.30 mg/dL Normal 0.20-1.00 [place] Comment on above: Order Comment: 'TROP ' Serial specimen #1, #2 or #3: 1 Result Comment: For patients on eltrombopag therapy, use of Dimension [place] TBIL is not recommended. Performed By: #### L 100.0100, L300.3900, L300.4310, L500.4050, L501.4020, L503.6005 ####[facility] [address] [place], [address] BUN/CRE 37.0 RATIO High 10-[address] [facility] Comment on above: Order Comment: 'TROP ' Serial specimen #1, #2 or #3: 1 Performed By: #### L 100.0100, L300.3900, L300.4310, L500.4050, L501.4020, L503.6005 ####[facility] [address] [place], [address] CA,Total 7.8 mg/dL Low 8.5-10.[address] [facility] Comment on above: Order Comment: 'TROP ' Serial specimen #1, #2 or #3: 1 Performed By: #### L 100.0100, L300.3900, L300.4310, L500.4050, L501.4020, L503.6005 ####[facility] [address] [place], [address] Chloride [Moles/Vol] 106 mmol/L Normal 98-107 [facility] Comment on above: Order Comment: 'TROP ' Serial specimen #1, #2 or #3: 1 Performed By: #### L 100.0100, L300.3900, L300.4310, L500.4050, L501.4020, L503.6005 ####[facility] [address] [place], [address] CO2 [Moles/Vol] 32.0 mmol/L Normal 21.0-32.[address] [facility] Comment on above: Order Comment: 'TROP ' Serial specimen #1, #2 or #3: 1 Performed By: #### L 100.0100, L300.3900, L300.4310, L500.4050, L501.4020, L503.6005 ####[facility] [address] [place], [address] Creatinine [Mass/Vol] 0.54 mg/dL Low 0.55-1.02 [facility] Comment on above: Order Comment: 'TROP ' Serial specimen #1, #2 or #3: 1 Result Comment: The validity of the calculated GFR GFRAA in patients over70 years has not been determined. Clinical correlation isessential. Performed By: #### L 100.0100, L300.3900, L300.4310, L500.4050, L501.4020, L503.6005 ####[facility] [address] [place], [place], [id number](625) EST GFR - AA 141 mL/min Normal >[address] [facility] Comment on above: Order Comment: 'TROP ' Serial specimen #1, #2 or #3: 1 Result Comment: Afri can Malagasy GFR Calc Performed By: #### L 100.0100, L300.3900, L300.4310, L500.4050, L501.4020, L503.6005 ####[facility] [address] [place], [address] GAP 4 Low 5-[address] [facility] Comment on above: Order Comment: 'TROP ' Serial specimen #1, #2 or #3: 1 Performed By: #### L 100.0100, L300.3900, L300.4310, L500.4050, L501.4020, L503.6005 ####[facility] [address] [place], [address] GFR/1.73 sq M.predicted among non-blacks MDRD (S/P/Bld) [Vol rate/Area] 117 mL/min/{1.73_m2} Normal >[address] [facility] Comment on above: Order Comment: 'TROP ' Serial specimen #1, #2 or #3: 1 Result Comment: Non- GFR Calc Performed By: #### L 100.0100, L300.3900, L300.4310, L500.4050, L501.4020, L503.6005 ####[facility] [address] [place], [address] Globulin (S) [Mass/Vol] 3.3 g/dL Normal 2.2-4.[address] [facility] Comment on above: Order Comment: 'TROP ' Serial specimen #1, #2 or #3: 1 Performed By: #### L 100.0100, L300.3900, L300.4310, L500.4050, L501.4020, L503.6005 ####[facility] [address] [place], [address] Glucose [Mass/Vol] 139 mg/dL High 74-106 [facility] Comment on above: Order Comment: 'TROP ' Serial specimen #1, #2 or #3: 1 Result Comment: Fast ing Glucose result greater than or equal to 126 mg/dLsuggests DIABETES MELLITUS per A.D.A. criteria. Performed By: #### L 100.0100, L300.3900, L300.4310, L500.4050, L501.4020, L503.6005 ####[facility] [address] [place], [address] Potassium [Moles/Vol] 2.6 mmol/L Invalid Interpretation Code 3.5-5.[address] [facility] Comment on above: Order Comment: 'TROP ' Serial specimen #1, #2 or #3: 1 Result Comment: Crit ical Result(s) Called at: 18:38:24 12/31/2023 by:[facility] Results read back by same. Performed By: #### L 100.0100, L300.3900, L300.4310, L500.4050, L501.4020, L503.6005 ####[facility] [address] [place], [address] Sodium [Moles/Vol] 142 mmol/L Normal 136-145 [facility] Comment on above: Order Comment: 'TROP ' Serial specimen #1, #2 or #3: 1 Performed By: #### L 100.0100, L300.3900, L300.4310, L500.4050, L501.4020, L503.6005 ####[facility] [address] [place], [address] T PROT 4.7 g/dL Low 6.4-8.[address] [facility] Comment on above: Order Comment: 'TROP ' Serial specimen #1, #2 or #3: 1 Performed By: #### L 100.0100, L300.3900, L300.4310, L500.4050, L501.4020, L503.6005 ####[facility] [address] [place], [address] Urea nitrogen [Mass/Vol] 20 mg/dL High 7-[address] [facility] Comment on above: Order Comment: 'TROP ' Serial specimen #1, #2 or #3: 1 Performed By: #### L 100.0100, L300.3900, L300.4310, L500.4050, L501.4020, L503.6005 ####[facility] [address] [place], [address] Albumin [Mass/Vol] 1.4 g/dL Low 3.2-5.0 [facility] Comment on above: Order Comment: 514.1 Performed By: #### L 100.0100, L501.8820, L500.4050, L501.6710 ####[facility] [address] [place], [address] Albumin/Globulin [Mass ratio] 0.4 {ratio} Low 0.9-2.[address] [facility] Comment on above: Order Comment: 514.1 Performed By: #### L 100.0100, L501.8820, L500.4050, L501.6710 ####[facility] [address] [place], [address] ALK P 139 U/L High 45-[address] [facility] Comment on above: Order Comment: 514.1 Performed By: #### L 100.0100, L501.8820, L500.4050, L501.6710 ####[facility] [address] [place], [address] ALT [Catalytic activity/Vol] 15 U/L Normal 13-[address] [facility] Comment on above: Order Comment: 514.1 Performed By: #### L 100.0100, L501.8820, L500.4050, L501.6710 ####[facility] [address] [place], [address] AST [Catalytic activity/Vol] 21 U/L Normal 15-[address] [facility] Comment on above: Order Comment: 514.1 Performed By: #### L 100.0100, L501.8820, L500.4050, L501.6710 ####[facility] [address] [place], [address] Bilirubin [Mass/Vol] 0.30 mg/dL Normal 0.20-1.00 [facility] Comment on above: Order Comment: 514.1 Result Comment: For patients on eltrombopag therapy, use of Dimension [place] TBIL is not recommended. Performed By: #### L 100.0100, L501.8820, L500.4050, L501.6710 ####[facility] [address] [place], [address] BUN/CRE 36.6 RATIO High 10-[address] [facility] Comment on above: Order Comment: 514.1 Performed By: #### L 100.0100, L501.8820, L500.4050, L501.6710 ####[facility] [address] [place], [address] CA,Total 7.7 mg/dL Low 8.5-10.[address] [facility] Comment on above: Order Comment: 514.1 Performed By: #### L 100.0100, L501.8820, L500.4050, L501.6710 ####[facility] [address] [place], [address] Chloride [Moles/Vol] 106 mmol/L Normal 98-107 [facility] Comment on above: Order Comment: 514.1 Performed By: #### L 100.0100, L501.8820, L500.4050, L501.6710 ####[facility] [address] [place], [address] CO2 [Moles/Vol] 29.0 mmol/L Normal 21.0-32.[address] [facility] Comment on above: Order Comment: 514.1 Performed By: #### L 100.0100, L501.8820, L500.4050, L501.6710 ####[facility] [address] [place], [address] Creatinine [Mass/Vol] 0.49 mg/dL Low 0.55-1.02 [facility] Comment on above: Order Comment: 514.1 Result Comment: The validity of the calculated GFR GFRAA in patients over70 years has not been determined. Clinical correlation isessential. Performed By: #### L 100.0100, L501.8820, L500.4050, L501.6710 ####[facility] [address] [place], [address] EST GFR - AA 157 mL/min Normal >[address] [facility] Comment on above: Order Comment: 514.1 Result Comment: Afri can Malagasy GFR Calc Performed By: #### L 100.0100, L501.8820, L500.4050, L501.6710 ####[facility] [address] [place], [address] GAP 7 Normal 5-[address] [facility] Comment on above: Order Comment: 514.1 Performed By: #### L 100.0100, L501.8820, L500.4050, L501.6710 ####[facility] [address] [place], [address] GFR/1.73 sq M.predicted among non-blacks MDRD (S/P/Bld) [Vol rate/Area] 130 mL/min/{1.73_m2} Normal >[address] [facility] Comment on above: Order Comment: 514.1 Result Comment: Non- GFR Calc Performed By: #### L 100.0100, L501.8820, L500.4050, L501.6710 ####[facility] [address] [place], [address] Globulin (S) [Mass/Vol] 3.3 g/dL Normal 2.2-4.[address] [facility] Comment on above: Order Comment: 514.1 Performed By: #### L 100.0100, L501.8820, L500.4050, L501.6710 ####[facility] [address] [place], [address] Glucose [Mass/Vol] 80 mg/dL Normal 74-106 [facility] Comment on above: Order Comment: 514.1 Performed By: #### L 100.0100, L501.8820, L500.4050, L501.6710 ####[facility] [address] [place], [address] Potassium [Moles/Vol] 2.9 mmol/L Low 3.5-5.1 [facility] Comment on above: Order Comment: 514.1 Performed By: #### L 100.0100, L501.8820, L500.4050, L501.6710 ####[facility] [address] [place], [address] Sodium [Moles/Vol] 142 mmol/L Normal 136-145 [facility] [facility] Comment on above: Order Comment: 514.1 Performed By: #### L 100.0100, L501.8820, L500.4050, L501.6710 ####[facility] [address] [place], [address] T PROT 4.7 g/dL Low 6.4-8.[address] [facility] Comment on above: Order Comment: 514.1 Performed By: #### L 100.0100, L501.8820, L500.4050, L501.6710 ####[facility] [address] [place], [address] Urea nitrogen [Mass/Vol] 18 mg/dL Normal 7-[address] [facility] Comment on above: Order Comment: 514.1 Performed By: #### L 100.0100, L501.8820, L500.4050, L501.6710 ####[facility] [address] [place], [address] Emergency Department Summary on 12-31-2023 Emergency Department Summary Normal [facility] Folates, (Folic Acid)on 12-09 FOLATES 10.10 ng/mL Normal 3.1-55.[address] [facility] Comment on above: Order Comment: Has P fabio had X-rays with Contrast this admission? NN Performed By: #### L 505.5000, L506.0250, L501.9100 ####[facility] [address] [place], [address] H AND P Exam - Hospitaliston 12-31-2023 H&P Exam - Hospitalist Normal [facility] L501.4020on 12-31-2023 TROPONIN-I HS 29 pg/mL Normal 3.0-54.[address] [facility] Comment on above: Order Comment: 'TROP ' Serial specimen #1, #2 or #3: 1 Result Comment: Plea se Note: New Test Units and Gender Specific Reference Ranges. For more information see Policy Stat Procedure [place] High Sensitivity Troponin (TNIH) and attachments. Performed By: #### L 100.0100, L300.3900, L300.4310, L500.4050, L501.4020, L503.6005 ####[facility] [address] [place], [address] Lactic Acidon 12-31-2023 Lactate [Moles/Vol] 1.0 mmol/L Normal 0.4-1.9 [facility] Comment on above: Order Comment: Y Performed By: #### L 100.0100, L300.3900, L300.4310, L500.4050, L501.4020, L503.6005 ####[facility] [address] [place], [address] M100.678on 12-31-[address]23 M100.[address] [facility] Comment on above: Performed By: #### L 400.0001, M100.678, M100.2200 ####[facility] [address] [place], [address] Magnesiumon 12-31-2023 Magnesium [Mass/Vol] 1.1 mg/dL Low 1.6-2.6 [place] Comment on above: Performed By: #### L 501.5200 ####[facility] [address] [place], [address] Partial Thromboplast Timeon 12-31-2023 aPTT Coag (Bld) [Time] 39.9 s High 24.1-36.2 [facility] Comment on above: Performed By: #### L 100.0100, L300.3900, L300.4310, L500.4050, L501.4020, L503.6005 ####[facility] [address] [place], [address] Prothrombin Time w/INRon INR Coag (PPP) [Relative time] 1.8 {INR} Normal [facility] Comment on above: Performed By: #### L 100.0100, L300.3900, L300.4310, L500.4050, L501.4020, L503.6005 ####[facility] [address] [place], [address] PT Coag (PPP) [Time] 20.9 s High 11.7-14.9 [place] Comment on above: Performed By: #### L 100.0100, L300.3900, L300.4310, L500.4050, L501.4020, L503.6005 ####[facility] [address] [place], [address] Urinalysis, Completeon 12-30 BACTERIA 2+ /hpf Normal None Seen [facility] Comment on above: Order Comment: COLOR OF URINE MAY AFFECT DIPSTICK RESULTS.CATHETER SPECIMEN Performed By: #### L 400.0001, M100.678, M100.2200 ####[facility] [address] [place], [address] Mucus Ql (Urine sed) 2+ /hpf Normal [place] Comment on above: Order Comment: COLOR OF URINE MAY AFFECT DIPSTICK RESULTS.CATHETER SPECIMEN Performed By: #### L 400.0001, M100.678, M100.2200 ####[facility] [address] [place], [address] RBC 0-5 SEEN Normal 0-[address] [facility] Comment on above: Order Comment: COLOR OF URINE MAY AFFECT DIPSTICK RESULTS.CATHETER SPECIMEN Performed By: #### L 400.0001, 00.8, ####[facility] [address] [place], [address] YEAST 2+ /hpf Normal None Seen [facility] Comment on above: Order Comment: COLOR OF URINE MAY AFFECT DIPSTICK RESULTS.CATHETER SPECIMEN Performed By: #### L 400.0001, , ####[facility] [address] [place], [address] WBC 25-50 SEEN Normal 0-[address] [facility] Comment on above: Order Comment: COLOR OF URINE MAY AFFECT DIPSTICK RESULTS.CATHETER SPECIMEN Performed By: #### L 400.0001, , ####[facility] [address] [place], [address] BILIRUBIN URINE Negative Normal Negative [facility] Comment on above: Order Comment: COLOR OF URINE MAY AFFECT DIPSTICK RESULTS.CATHETER SPECIMEN Performed By: #### L 400.0001, , ####[facility] [address] [place], [address] Clarity (U) Clear Normal Clear [facility] Comment on above: Order Comment: COLOR OF URINE MAY AFFECT DIPSTICK RESULTS.CATHETER SPECIMEN Performed By: #### L 400.0001, M100.8, ####[facility] [address] [place], [address] Color (U) Rita Normal Yellow [facility] Comment on above: Order Comment: COLOR OF URINE MAY AFFECT DIPSTICK RESULTS.CATHETER SPECIMEN Performed By: #### L 400.0001, M18, M100.2200 ####[facility] [address] [place], [address] GLUCOSE, UR Normal Normal Normal [facility] Comment on above: Order Comment: COLOR OF URINE MAY AFFECT DIPSTICK RESULTS.CATHETER SPECIMEN Performed By: #### L 400.0001, M100.678, M100.2200 ####[facility] [address] [place], [address] KETONE UR Negative Normal Negative [facility] Comment on above: Order Comment: COLOR OF URINE MAY AFFECT DIPSTICK RESULTS.CATHETER SPECIMEN Performed By: #### L 400.0001, M100.678, M100.2200 ####[facility] [address] [place], [address] LEUK ESTERASE 100 /ul Abnormal Negative [facility] Comment on above: Order Comment: COLOR OF URINE MAY AFFECT DIPSTICK RESULTS.CATHETER SPECIMEN Performed By: #### L 400.0001, M100.678, M100.0 ####[facility] [address] [place], [address] Nitrite Ql (U) Negative Normal Negative [facility] Comment on above: Order Comment: COLOR OF URINE MAY AFFECT DIPSTICK RESULTS.CATHETER SPECIMEN Performed By: #### L 400.0001, M100.678, M100.2200 ####[facility] [address] [place], [address] OCCULT BLOOD-UR Negative Normal Negative [facility] Comment on above: Order Comment: COLOR OF URINE MAY AFFECT DIPSTICK RESULTS.CATHETER SPECIMEN Performed By: #### L 400.0001, M100.678, M100.2200 ####[facility] [address] [place], [address] pH UR 6.0 Normal 5.0 - 8.[address] [facility] Comment on above: Order Comment: COLOR OF URINE MAY AFFECT DIPSTICK RESULTS.CATHETER SPECIMEN Performed By: #### L 400.0001, M100.678, M100.2200 ####[facility] [address] [place], [address] PROT DIPSTX 30 mg/dl Abnormal Negative [facility] Comment on above: Order Comment: COLOR OF URINE MAY AFFECT DIPSTICK RESULTS.CATHETER SPECIMEN Performed By: #### L 400.0001, M100.678, M100.2200 ####[facility] [address] [place], [address] SP.GR. DIPSTX 1.020 Normal 1.002-1.[address] [facility] Comment on above: Order Comment: COLOR OF URINE MAY AFFECT DIPSTICK RESULTS.CATHETER SPECIMEN Performed By: #### L 400.0001, M100.678, M100.2200 ####[facility] [address] [place], [address] UROBILI Normal Normal Normal [facility] Comment on above: Order Comment: COLOR OF URINE MAY AFFECT DIPSTICK RESULTS.CATHETER SPECIMEN Performed By: #### L 400.0001, M100.678, M100.2200 ####[facility] [address] [place], [address] EPI,SQUAMOUS 0 SEEN Normal 5-[address] [facility] Comment on above: Order Comment: COLOR OF URINE MAY AFFECT DIPSTICK RESULTS.CATHETER SPECIMEN Performed By: #### L 400.0001, M100.678, M100.2200 ####[facility] [address] [place], [address] Vancomycin, Trough Levelon 0 12-31-2023 VANCO, TROUGH 18.5 ug/mL High 5.0-15.[address] [facility] Comment on above: Order Comment: 514.1 0500 Result Comment: VANC OMYCIN STANDARED DRUG THERAPY TROUGH LEVEL: 5.0 - 15.0 mg/LVANCOMYCIN HIGH INTENSITY THERAPY TROUGH LEVEL: 15.0 - 20.0 mg/LHigh Intensity therapy recommended for serious lifethreatening infections include:- Ntywuwgxuv-Wrdoeadxlxqz-Vepfmrojq (Ventilator/Healtcare Associated)-SepsisPLEASE CONTACT PHARMACY SERVICES (#3506) FOR INTERPRETATIONOF RESULTS. Performed By: #### L 100.0100, L501.8820, L500.4050, L501.6710 ####[facility] [address] [place], [address] Vitamin B12on 12-31-2023 Cobalamin (Vitamin B12) [Mass/Vol] 1036 pg/mL High 211-[address] [facility] Comment on above: Performed By: #### L 503.0105 ####[facility] [address] [place], [address] CBC W/Diff, Automatedon 12-09 Absolute Lymph 2.21 X10 3/uL Normal 0.83-4.[address] [facility] Comment on above: Order Comment: 514-1 Performed By: #### L 100.0100, L501.8820, L500.4050, L501.6710 ####[facility] [address] [place], [address] Absolute Neut 4.9 X10 3/uL Normal 2.0-7.[address] [facility] Comment on above: Order Comment: 514-1 Performed By: #### L 100.0100, L501.8820, L500.4050, L501.6710 ####[facility] [address] [place], [address] Basophils/100 WBC (Bld) 0.9 % Normal 0-[address] [facility] Comment on above: Order Comment: 514-1 Performed By: #### L 100.0100, L501.8820, L500.4050, L501.6710 ####[facility] [address] [place], [address] Eosinophils/100 WBC (Bld) 2.1 % Normal 0-[address] [facility] Comment on above: Order Comment: 514-1 Performed By: #### L 100.0100, L501.8820, L500.4050, L501.6710 ####[facility] [address] [place], [address] Erythrocyte distribution width (RBC) [Ratio] 17.6 % High 11.6-14.[address] [facility] Comment on above: Order Comment: 514-1 Performed By: #### L 100.0100, L501.8820, L500.4050, L501.6710 ####[facility] [address] [place], [address] Hematocrit (Bld) [Volume fraction] 32.8 % Low 37-[address] [facility] Comment on above: Order Comment: 514-1 Performed By: #### L 100.0100, L501.8820, L500.4050, L501.6710 ####[facility] [address] [place], [address] Hemoglobin (Bld) [Mass/Vol] 10.0 g/dL Low 12.0-15.[address] [facility] Comment on above: Order Comment: 514-1 Performed By: #### L 100.0100, L501.8820, L500.4050, L501.6710 ####[facility] [address] [place], [address] IG% 0.500 Normal 0.0-0.[address] [facility] Comment on above: Order Comment: 514-1 Result Comment: IG% - Immature Granulocytes (promyelocytes, myelocytes andmetamyelocytes) > 1% indicates that a LEFT SHIFT is Present. Performed By: #### L 100.0100, L501.8820, L500.4050, L501.6710 ####[facility] [address] [place], [address] Lymphocytes/100 WBC (Bld) 27.4 % Normal 19-[address] [facility] Comment on above: Order Comment: 514-1 Performed By: #### L 100.0100, L501.8820, L500.4050, L501.6710 ####[facility] [address] [place], [address] MCH (RBC) [Entitic mass] 25.9 pg Low 27.0-32.[address] [facility] Comment on above: Order Comment: 514-1 Performed By: #### L 100.0100, L501.8820, L500.4050, L501.6710 ####[facility] [address] [place], [address] MCHC (RBC) [Mass/Vol] 30.5 g/dL Low 32-36 [facility] Comment on above: Order Comment: 514-1 Performed By: #### L 100.0100, L501.8820, L500.4050, L501.6710 ####[facility] [address] [place], [address] MCV (RBC) [Entitic vol] 85.0 fL Normal 81-[address] [facility] Comment on above: Order Comment: 514-1 Performed By: #### L 100.0100, L501.8820, L500.4050, L501.6710 ####[facility] [address] [place], [address] Monocytes/100 WBC (Bld) 8.1 % Normal 0-[address] [facility] Comment on above: Order Comment: 514-1 Performed By: #### L 100.0100, L501.8820, L500.4050, L501.6710 ####[facility] [address] [place], [address] Neutrophils/100 WBC (Bld) 61.0 % Normal 47-[address] [facility] Comment on above: Order Comment: 514-1 Performed By: #### L 100.0100, L501.8820, L500.4050, L501.6710 ####[facility] [address] [place], [address] Nucleated RBC (Bld) [#/Vol] 0 10*3/uL Normal 0-[address] [facility] Comment on above: Order Comment: 514-1 Performed By: #### L 100.0100, L501.8820, L500.4050, L501.6710 ####[facility] [address] [place], [address] Platelet mean volume (Bld) [Entitic vol] 9.9 fL Normal 6.2-12.[address] [facility] Comment on above: Order Comment: 514-1 Performed By: #### L 100.0100, L501.8820, L500.4050, L501.6710 ####[facility] [address] [place], [address] Platelets (Bld) [#/Vol] 245 10*3/uL Normal 150-[address] [facility] Comment on above: Order Comment: 514-1 Performed By: #### L 100.0100, L501.8820, L500.4050, L501.6710 ####[facility] [address] [place], [address] RBC (Bld) [#/Vol] 3.86 10*6/uL Low 4.2-5.4 [facility] Comment on above: Order Comment: 514-1 Performed By: #### L 100.0100, L501.8820, L500.4050, L501.6710 ####[facility] [address] [place], [address] RDW SD 54.4 fl High 35.1-43.[address] [facility] Comment on above: Order Comment: 514-1 Performed By: #### L 100.0100, L501.8820, L500.4050, L501.6710 ####[facility] [address] [place], [address] WBC (Bld) [#/Vol] 8.1 10*3/uL Normal 4.4-11.0 [facility] Comment on above: Order Comment: 514-1 Performed By: #### L 100.0100, L501.8820, L500.4050, L501.6710 ####[facility] [address] [place], [address] CRPon 12-28-2023 C-REACTIVE PROT 39.80 mg/L High 0.0-3.[address] [facility] Comment on above: Order Comment: 514-1 Result Comment: C-Re active Protein (CRP) provides useful information for thediagnosis, therapy and monitoring of inflammatory processesand associated diseases. For the evaluation of Relative Riskfor Cardiovascular Disease, a High Sensitivity CRP (HSCRP)should be ordered. Performed By: #### L 100.0100, L501.8820, L500.4050, L501.6710 ####[facility] [address] [place], [address] Comprehensive Metabolic Prof ilon 12-28-2023 Albumin [Mass/Vol] 1.4 g/dL Low 3.2-5.0 [facility] Comment on above: Order Comment: 514-1 Performed By: #### L 100.0100, L501.8820, L500.4050, L501.6710 ####[facility] [address] [place], [address] Albumin/Globulin [Mass ratio] 0.4 {ratio} Low 0.9-2.[address] [facility] Comment on above: Order Comment: 514-1 Performed By: #### L 100.0100, L501.8820, L500.4050, L501.6710 ####[facility] [address] [place], [address] ALK P 140 U/L High 45-[address] [facility] Comment on above: Order Comment: 514-1 Performed By: #### L 100.0100, L501.8820, L500.4050, L501.6710 ####[facility] [address] [place], [address] ALT [Catalytic activity/Vol] 13 U/L Normal 13-[address] [facility] Comment on above: Order Comment: 514-1 Performed By: #### L 100.0100, L501.8820, L500.4050, L501.6710 ####[facility] [address] [place], [address] AST [Catalytic activity/Vol] 29 U/L Normal 15-[address] [facility] Comment on above: Order Comment: 514-1 Result Comment: Slig ht Hemolysis, Result may be falsely increased. Performed By: #### L 100.0100, L501.8820, L500.4050, L501.6710 ####[facility] [address] [place], [address] Bilirubin [Mass/Vol] 0.30 mg/dL Normal 0.20-1.00 [place] Comment on above: Order Comment: 514-1 Result Comment: For patients on eltrombopag therapy, use of Dimension [place] TBIL is not recommended. Performed By: #### L 100.0100, L501.8820, L500.4050, L501.6710 ####[facility] [address] [place], [address] BUN/CRE 31.4 RATIO High 10-[address] [facility] Comment on above: Order Comment: 514-1 Performed By: #### L 100.0100, L501.8820, L500.4050, L501.6710 ####[facility] [address] [place], [address] CA,Total 7.5 mg/dL Low 8.5-10.[address] [facility] Comment on above: Order Comment: 514-1 Performed By: #### L 100.0100, L501.8820, L500.4050, L501.6710 ####[facility] [address] [place], [address] Chloride [Moles/Vol] 105 mmol/L Normal 98-107 [place] Comment on above: Order Comment: 514-1 Performed By: #### L 100.0100, L501.8820, L500.4050, L501.6710 ####[facility] [address] [place], [address] CO2 [Moles/Vol] 28.0 mmol/L Normal 21.0-32.[address] [facility] Comment on above: Order Comment: 514-1 Performed By: #### L 100.0100, L501.8820, L500.4050, L501.6710 ####[facility] [address] [place], [address] Creatinine [Mass/Vol] 0.57 mg/dL Normal 0.55-1.02 [facility] Comment on above: Order Comment: 514-1 Result Comment: The validity of the calculated GFR GFRAA in patients over70 years has not been determined. Clinical correlation isessential. Performed By: #### L 100.0100, L501.8820, L500.4050, L501.6710 ####[facility] [address] [place], [address] EST GFR - AA 132 mL/min Normal >[address] [facility] Comment on above: Order Comment: 514-1 Result Comment: Afri can Malagasy GFR Calc Performed By: #### L 100.0100, L501.8820, L500.4050, L501.6710 ####[facility] [address] [place], [address] GAP 7 Normal 5-[address] [facility] Comment on above: Order Comment: 514-1 Performed By: #### L 100.0100, L501.8820, L500.4050, L501.6710 ####[facility] [address] [place], [address] GFR/1.73 sq M.predicted among non-blacks MDRD (S/P/Bld) [Vol rate/Area] 109 mL/min/{1.73_m2} Normal >[address] [facility] Comment on above: Order Comment: 514-1 Result Comment: Non- GFR Calc Performed By: #### L 100.0100, L501.8820, L500.4050, L501.6710 ####[facility] [address] [place], [address] Globulin (S) [Mass/Vol] 3.3 g/dL Normal 2.2-4.[address] [facility] Comment on above: Order Comment: 514-1 Performed By: #### L 100.0100, L501.8820, L500.4050, L501.6710 ####[facility] [address] [place], [address] Glucose [Mass/Vol] 106 mg/dL Normal 74-106 [facility] Comment on above: Order Comment: 514-1 Result Comment: Fast ing Glucose result from 100 to 125 mg/dLsuggests IMPAIRED HOMEOSTASIS per A.D.A. criteria. Performed By: #### L 100.0100, L501.8820, L500.4050, L501.6710 ####[facility] [address] [place], [address] Potassium [Moles/Vol] 2.7 mmol/L Invalid Interpretation Code 3.5-5.[address] [facility] Comment on above: Order Comment: 514-1 Result Comment: Slig ht Hemolysis, Result may be falsely increased.CriticalResult(s) Called at: 08:46:14 12/28/2023 by: Jeri Duong. Results read back by same. Performed By: #### L 100.0100, L501.8820, L500.4050, L501.6710 ####[facility] [address] [place], [address] Sodium [Moles/Vol] 140 mmol/L Normal 136-145 [facility] Comment on above: Order Comment: 514-1 Performed By: #### L 100.0100, L501.8820, L500.4050, L501.6710 ####[facility] [address] [place], [address] T PROT 4.7 g/dL Low 6.4-8.[address] [facility] Comment on above: Order Comment: 514-1 Performed By: #### L 100.0100, L501.8820, L500.4050, L501.6710 ####[facility] [address] [place], [address] Urea nitrogen [Mass/Vol] 18 mg/dL Normal 7-[address] [facility] Comment on above: Order Comment: 514-1 Performed By: #### L 100.0100, L501.8820, L500.4050, L501.6710 ####[facility] [address] [place], [address] Vancomycin, Trough Levelon 0 12-28-2023 VANCO, TROUGH 12.8 ug/mL Normal 5.0-15.[address] [facility] Comment on above: Order Comment: 514-1 0730 Result Comment: VANC OMYCIN STANDARED DRUG THERAPY TROUGH LEVEL: 5.0 - 15.0 mg/LVANCOMYCIN HIGH INTENSITY THERAPY TROUGH LEVEL: 15.0 - 20.0 mg/LHigh Intensity therapy recommended for serious lifethreatening infections include:- Vmiqkbeygo-Jvmqtofeanwd-Glhjvruwg (Ventilator/Healtcare Associated)-SepsisPLEASE CONTACT PHARMACY SERVICES (#5070) FOR INTERPRETATIONOF RESULTS. Performed By: #### L 100.0100, L501.8820, L500.4050, L501.6710 ####[facility] [address] [place], [address] CBC W/Diff, Automatedon - Absolute Lymph 1.74 X10 3/uL Normal 0.83-4.[address] [facility] Comment on above: Order Comment: 514.1 Performed By: #### L 100.0100, L501.8820, L500.4050, L501.6710 ####[facility] [address] [place], [address] Absolute Neut 5.8 X10 3/uL Normal 2.0-7.[address] [facility] Comment on above: Order Comment: 514.1 Performed By: #### L 100.0100, L501.8820, L500.4050, L501.6710 ####[facility] [address] [place], [address] Basophils/100 WBC (Bld) 1.0 % Normal 0-[address] [facility] Comment on above: Order Comment: 514.1 Performed By: #### L 100.0100, L501.8820, L500.4050, L501.6710 ####[facility] [address] [place], [address] Eosinophils/100 WBC (Bld) 1.4 % Normal 0-[address] [facility] Comment on above: Order Comment: 514.1 Performed By: #### L 100.0100, L501.8820, L500.4050, L501.6710 ####[facility] [address] [place], [address] Erythrocyte distribution width (RBC) [Ratio] 17.6 % High 11.6-14.[address] [facility] Comment on above: Order Comment: 514.1 Performed By: #### L 100.0100, L501.8820, L500.4050, L501.6710 ####[facility] [address] [place], [address] Hematocrit (Bld) [Volume fraction] 36.1 % Low 37-[address] [facility] Comment on above: Order Comment: 514.1 Performed By: #### L 100.0100, L501.8820, L500.4050, L501.6710 ####[facility] [address] [place], [address] Hemoglobin (Bld) [Mass/Vol] 10.5 g/dL Low 12.0-15.[address] [facility] Comment on above: Order Comment: 514.1 Performed By: #### L 100.0100, L501.8820, L500.4050, L501.6710 ####[facility] [address] [place], [address] IG% 0.400 Normal 0.0-0.[address] [facility] Comment on above: Order Comment: 514.1 Result Comment: IG% - Immature Granulocytes (promyelocytes, myelocytes andmetamyelocytes) > 1% indicates that a LEFT SHIFT is Present. Performed By: #### L 100.0100, L501.8820, L500.4050, L501.6710 ####[facility] [address] [place], [address] Lymphocytes/100 WBC (Bld) 20.8 % Normal 19-[address] [facility] Comment on above: Order Comment: 514.1 Performed By: #### L 100.0100, L501.8820, L500.4050, L501.6710 ####[facility] [address] [place], [address] MCH (RBC) [Entitic mass] 25.9 pg Low 27.0-32.[address] [facility] Comment on above: Order Comment: 514.1 Performed By: #### L 100.0100, L501.8820, L500.4050, L501.6710 ####[facility] [address] [place], [address] MCHC (RBC) [Mass/Vol] 29.1 g/dL Low 32-36 [facility] Comment on above: Order Comment: 514.1 Performed By: #### L 100.0100, L501.8820, L500.4050, L501.6710 ####[facility] [address] [place], [address] MCV (RBC) [Entitic vol] 88.9 fL Normal 81-[address] [facility] Comment on above: Order Comment: 514.1 Performed By: #### L 100.0100, L501.8820, L500.4050, L501.6710 ####[facility] [address] [place], [address] Monocytes/100 WBC (Bld) 6.9 % Normal 0-[address] [facility] Comment on above: Order Comment: 514.1 Performed By: #### L 100.0100, L501.8820, L500.4050, L501.6710 ####[facility] [address] [place], [address] Neutrophils/100 WBC (Bld) 69.5 % Normal 47-[address] [facility] Comment on above: Order Comment: 514.1 Performed By: #### L 100.0100, L501.8820, L500.4050, L501.6710 ####[facility] [address] [place], [address] Nucleated RBC (Bld) [#/Vol] 0 10*3/uL Normal 0-[address] [facility] Comment on above: Order Comment: 514.1 Performed By: #### L 100.0100, L501.8820, L500.4050, L501.6710 ####[facility] [address] [place], [address] Platelet mean volume (Bld) [Entitic vol] 10.0 fL Normal 6.2-12.[address] [facility] Comment on above: Order Comment: 514.1 Performed By: #### L 100.0100, L501.8820, L500.4050, L501.6710 ####[facility] [address] [place], [address] Platelets (Bld) [#/Vol] 195 10*3/uL Normal 150-[address] [facility] Comment on above: Order Comment: 514.1 Performed By: #### L 100.0100, L501.8820, L500.4050, L501.6710 ####[facility] [address] [place], [address] RBC (Bld) [#/Vol] 4.06 10*6/uL Low 4.2-5.4 [facility] Comment on above: Order Comment: 514.1 Performed By: #### L 100.0100, L501.8820, L500.4050, L501.6710 ####[facility] [address] [place], [address] RDW SD 57.0 fl High 35.1-43.[address] [facility] Comment on above: Order Comment: 514.1 Performed By: #### L 100.0100, L501.8820, L500.4050, L501.6710 ####[facility] [address] [place], [address] WBC (Bld) [#/Vol] 8.4 10*3/uL Normal 4.4-11.0 [facility] Comment on above: Order Comment: 514.1 Performed By: #### L 100.0100, L501.8820, L500.4050, L501.6710 ####[facility] [address] [place], [address] CRPon 12-25-2023 C-REACTIVE PROT 80.80 mg/L High 0.0-3.[address] [facility] Comment on above: Order Comment: 514.1 Result Comment: C-Re active Protein (CRP) provides useful information for thediagnosis, therapy and monitoring of inflammatory processesand associated diseases. For the evaluation of Relative Riskfor Cardiovascular Disease, a High Sensitivity CRP (HSCRP)should be ordered. Performed By: #### L 100.0100, L501.8820, L500.4050, L501.6710 ####[facility] [address] [place], [address] Comprehensive Metabolic Prof ilon 12-25-2023 Albumin [Mass/Vol] 1.2 g/dL Low 3.2-5.0 [facility] Comment on above: Order Comment: 514.1 Performed By: #### L 100.0100, L501.8820, L500.4050, L501.6710 ####[facility] [address] [place], [address] Albumin/Globulin [Mass ratio] 0.3 {ratio} Low 0.9-2.[address] [facility] Comment on above: Order Comment: 514.1 Performed By: #### L 100.0100, L501.8820, L500.4050, L501.6710 ####[facility] [address] [place], [address] ALK P 144 U/L High 45-[address] [facility] Comment on above: Order Comment: 514.1 Performed By: #### L 100.0100, L501.8820, L500.4050, L501.6710 ####[facility] [address] [place], [address] ALT [Catalytic activity/Vol] 12 U/L Low 13-[address] [facility] Comment on above: Order Comment: 514.1 Performed By: #### L 100.0100, L501.8820, L500.4050, L501.6710 ####[facility] [address] [place], [address] AST [Catalytic activity/Vol] 26 U/L Normal 15-[address] [facility] Comment on above: Order Comment: 514.1 Performed By: #### L 100.0100, L501.8820, L500.4050, L501.6710 ####[facility] [address] [place], [address] Bilirubin [Mass/Vol] 0.30 mg/dL Normal 0.20-1.00 [place] Comment on above: Order Comment: 514.1 Result Comment: For patients on eltrombopag therapy, use of Dimension [place] TBIL is not recommended. Performed By: #### L 100.0100, L501.8820, L500.4050, L501.6710 ####[facility] [address] [place], [address] BUN/CRE 33.3 RATIO High 10-[address] [facility] Comment on above: Order Comment: 514.1 Performed By: #### L 100.0100, L501.8820, L500.4050, L501.6710 ####[facility] [address] [place], [address] CA,Total 7.3 mg/dL Low 8.5-10.[address] [facility] Comment on above: Order Comment: 514.1 Performed By: #### L 100.0100, L501.8820, L500.4050, L501.6710 ####[facility] [address] [place], [address] Chloride [Moles/Vol] 104 mmol/L Normal 98-107 [place] Comment on above: Order Comment: 514.1 Performed By: #### L 100.0100, L501.8820, L500.4050, L501.6710 ####[facility] [address] [place], [address] CO2 [Moles/Vol] 26.0 mmol/L Normal 21.0-32.[address] [facility] Comment on above: Order Comment: 514.1 Performed By: #### L 100.0100, L501.8820, L500.4050, L501.6710 ####[facility] [address] [place], [address] Creatinine [Mass/Vol] 0.54 mg/dL Low 0.55-1.02 [facility] Comment on above: Order Comment: 514.1 Result Comment: The validity of the calculated GFR GFRAA in patients over70 years has not been determined. Clinical correlation isessential. Performed By: #### L 100.0100, L501.8820, L500.4050, L501.6710 ####[facility] [address] [place], [address] EST GFR - AA 141 mL/min Normal >[address] [facility] Comment on above: Order Comment: 514.1 Result Comment: Afri can Malagasy GFR Calc Performed By: #### L 100.0100, L501.8820, L500.4050, L501.6710 ####[facility] [address] [place], [address] GAP 7 Normal 5-[address] [facility] Comment on above: Order Comment: 514.1 Performed By: #### L 100.0100, L501.8820, L500.4050, L501.6710 ####[facility] [address] [place], [address] GFR/1.73 sq M.predicted among non-blacks MDRD (S/P/Bld) [Vol rate/Area] 117 mL/min/{1.73_m2} Normal >[address] [facility] Comment on above: Order Comment: 514.1 Result Comment: Non- GFR Calc Performed By: #### L 100.0100, L501.8820, L500.4050, L501.6710 ####[facility] [address] [place], [address] Globulin (S) [Mass/Vol] 3.5 g/dL Normal 2.2-4.[address] [facility] Comment on above: Order Comment: 514.1 Performed By: #### L 100.0100, L501.8820, L500.4050, L501.6710 ####[facility] [address] [place], [address] Glucose [Mass/Vol] 67 mg/dL Low 74-106 [facility] Comment on above: Order Comment: 514.1 Performed By: #### L 100.0100, L501.8820, L500.4050, L501.6710 ####[facility] [address] [place], [address] Potassium [Moles/Vol] 3.1 mmol/L Low 3.5-5.1 [facility] Comment on above: Order Comment: 514.1 Performed By: #### L 100.0100, L501.8820, L500.4050, L501.6710 ####[facility] [address] [place], [address] Sodium [Moles/Vol] 137 mmol/L Normal 136-145 [facility] Comment on above: Order Comment: 514.1 Performed By: #### L 100.0100, L501.8820, L500.4050, L501.6710 ####[facility] [address] [place], [address] T PROT 4.7 g/dL Low 6.4-8.[address] [facility] Comment on above: Order Comment: 514.1 Performed By: #### L 100.0100, L501.8820, L500.4050, L501.6710 ####[facility] [address] [place], [address] Urea nitrogen [Mass/Vol] 18 mg/dL Normal 7-[address] [facility] Comment on above: Order Comment: 514.1 Performed By: #### L 100.0100, L501.8820, L500.4050, L501.6710 ####[facility] [address] [place], [address] Vancomycin, Trough Levelon 0 12-25-2023 VANCO, TROUGH 19.3 ug/mL High 5.0-15.[address] [facility] Comment on above: Order Comment: 514.1 0500 Result Comment: VANC OMYCIN STANDARED DRUG THERAPY TROUGH LEVEL: 5.0 - 15.0 mg/LVANCOMYCIN HIGH INTENSITY THERAPY TROUGH LEVEL: 15.0 - 20.0 mg/LHigh Intensity therapy recommended for serious lifethreatening infections include:- Gvikwovspe-Noilgwwtrdkp-Lvtaxgqhr (Ventilator/Healtcare Associated)-SepsisPLEASE CONTACT PHARMACY SERVICES (#7953) FOR INTERPRETATIONOF RESULTS. Performed By: #### L 100.0100, L501.8820, L500.4050, L501.6710 ####[facility] [address] [place], [address] Basic Metabolic Profile (BMP )on 12-24-2023 BUN/CRE 28.6 RATIO High 10-[address] [facility] Comment on above: Order Comment: 514-1 Performed By: #### L 500.2500 ####[facility] [address] [place], [address] CA,Total 7.4 mg/dL Low 8.5-10.[address] [facility] Comment on above: Order Comment: 514-1 Performed By: #### L 500.2500 ####[facility] [address] [place], [address] Chloride [Moles/Vol] 104 mmol/L Normal 98-107 [place] Comment on above: Order Comment: 514-1 Performed By: #### L 500.2500 ####[facility] [address] [place], [address] CO2 [Moles/Vol] 27.0 mmol/L Normal 21.0-32.[address] [facility] Comment on above: Order Comment: 514-1 Performed By: #### L 500.2500 ####[facility] [address] [place], [address] Creatinine [Mass/Vol] 0.56 mg/dL Normal 0.55-1.02 [facility] Comment on above: Order Comment: 514- Result Comment: The validity of the calculated GFR GFRAA in patients over70 years has not been determined. Clinical correlation isessential. Performed By: #### L 500.2500 ####[facility] [address] [place], [address] EST GFR - AA 136 mL/min Normal >[address] [facility] Comment on above: Order Comment: 514- Result Comment: Afri can Malagasy GFR Calc Performed By: #### L 500.2500 ####[facility] [address] [place], [address] GAP 6 Normal 5-[address] [facility] Comment on above: Order Comment: - Performed By: #### L 500.2500 ####[facility] [address] [place], [address] GFR/1.73 sq M.predicted among non-blacks MDRD (S/P/Bld) [Vol rate/Area] 112 mL/min/{1.73_m2} Normal >[address] [facility] Comment on above: Order Comment: - Result Comment: Non- GFR Calc Performed By: #### L 500.2500 ####[facility] [address] [place], [address] Glucose [Mass/Vol] 82 mg/dL Normal 74-106 [facility] Comment on above: Order Comment: - Performed By: #### L 500.2500 ####[facility] [address] [place], [address] Potassium [Moles/Vol] 3.0 mmol/L Low 3.5-5.1 [facility] Comment on above: Order Comment: 514- Result Comment: Slig ht Hemolysis, Result may be falsely increased. Performed By: #### L 500.2500 ####[facility] [address] [place], [address] Sodium [Moles/Vol] 137 mmol/L Normal 136-145 [facility] Comment on above: Order Comment: 514-1 Performed By: #### L 500.2500 ####[facility] [address] [place], [address] Urea nitrogen [Mass/Vol] 16 mg/dL Normal 7-[address] [facility] Comment on above: Order Comment: 514-1 Performed By: #### L 500.2500 ####[facility] [address] [place], [place], [address] Vancomycin, Trough Levelon 0 - VANCO, TROUGH 16.8 ug/mL High 5.0-15.[address] [facility] Comment on above: Order Comment: 514- 0800 Result Comment: VANC OMYCIN STANDARED DRUG THERAPY TROUGH LEVEL: 5.0 - 15.0 mg/LVANCOMYCIN HIGH INTENSITY THERAPY TROUGH LEVEL: 15.0 - 20.0 mg/LHigh Intensity therapy recommended for serious lifethreatening infections include:- Qdczvjlbdr-Btrtofiyebtn-Nnfesksbn (Ventilator/Healtcare Associated)-SepsisPLEASE CONTACT PHARMACY SERVICES (#2281) FOR INTERPRETATIONOF RESULTS. Performed By: #### L 501.8820 ####[facility] [address] [place], [address] CBC W/Diff, Automatedon 12-08 Absolute Lymph 2.08 X10 3/uL Normal 0.83-4.[address] [facility] Comment on above: Order Comment: 514- Performed By: #### L 100.0100, L501.8820, L500.4050, L501.6710 ####[facility] [address] [place], [address] Absolute Neut 6.8 X10 3/uL Normal 2.0-7.[address] [facility] Comment on above: Order Comment: 514- Performed By: #### L 100.0100, L501.8820, L500.4050, L501.6710 ####[facility] [address] [place], [address] Basophils/100 WBC (Bld) 0.5 % Normal 0-[address] [facility] Comment on above: Order Comment: 514-1 Performed By: #### L 100.0100, L501.8820, L500.4050, L501.6710 ####[facility] [address] [place], [address] Eosinophils/100 WBC (Bld) 1.1 % Normal 0-[address] [facility] Comment on above: Order Comment: 514-1 Performed By: #### L 100.0100, L501.8820, L500.4050, L501.6710 ####[facility] [address] [place], [address] Erythrocyte distribution width (RBC) [Ratio] 16.9 % High 11.6-14.[address] [facility] Comment on above: Order Comment: 514-1 Performed By: #### L 100.0100, L501.8820, L500.4050, L501.6710 ####[facility] [address] [place], [address] Hematocrit (Bld) [Volume fraction] 33.0 % Low 37-[address] [facility] Comment on above: Order Comment: 514-1 Performed By: #### L 100.0100, L501.8820, L500.4050, L501.6710 ####[facility] [address] [place], [address] Hemoglobin (Bld) [Mass/Vol] 9.9 g/dL Low 12.0-15.[address] [facility] Comment on above: Order Comment: 514-1 Performed By: #### L 100.0100, L501.8820, L500.4050, L501.6710 ####[facility] [address] [place], [address] IG% 0.600 Normal 0.0-0.[address] [facility] Comment on above: Order Comment: 514-1 Result Comment: IG% - Immature Granulocytes (promyelocytes, myelocytes andmetamyelocytes) > 1% indicates that a LEFT SHIFT is Present. Performed By: #### L 100.0100, L501.8820, L500.4050, L501.6710 ####[facility] [address] [place], [address] Lymphocytes/100 WBC (Bld) 21.5 % Normal 19-[address] [facility] Comment on above: Order Comment: 514-1 Performed By: #### L 100.0100, L501.8820, L500.4050, L501.6710 ####[facility] [address] [place], [address] MCH (RBC) [Entitic mass] 25.3 pg Low 27.0-32.[address] [facility] Comment on above: Order Comment: 514-1 Performed By: #### L 100.0100, L501.8820, L500.4050, L501.6710 ####[facility] [address] [place], [address] MCHC (RBC) [Mass/Vol] 30.0 g/dL Low 32-36 [facility] Comment on above: Order Comment: 514-1 Performed By: #### L 100.0100, L501.8820, L500.4050, L501.6710 ####[facility] [address] [place], [address] MCV (RBC) [Entitic vol] 84.4 fL Normal 81-[address] [facility] Comment on above: Order Comment: 514-1 Performed By: #### L 100.0100, L501.8820, L500.4050, L501.6710 ####[facility] [address] [place], [address] Monocytes/100 WBC (Bld) 6.1 % Normal 0-[address] [facility] Comment on above: Order Comment: 514-1 Performed By: #### L 100.0100, L501.8820, L500.4050, L501.6710 ####[facility] [address] [place], [address] Neutrophils/100 WBC (Bld) 70.2 % High 47-[address] [facility] Comment on above: Order Comment: 514-1 Performed By: #### L 100.0100, L501.8820, L500.4050, L501.6710 ####[facility] [address] [place], [address] Nucleated RBC (Bld) [#/Vol] 0 10*3/uL Normal 0-[address] [facility] Comment on above: Order Comment: 514-1 Performed By: #### L 100.0100, L501.8820, L500.4050, L501.6710 ####[facility] [address] [place], [address] Platelet mean volume (Bld) [Entitic vol] 9.5 fL Normal 6.2-12.[address] [facility] Comment on above: Order Comment: 514-1 Performed By: #### L 100.0100, L501.8820, L500.4050, L501.6710 ####[facility] [address] [place], [address] Platelets (Bld) [#/Vol] 236 10*3/uL Normal 150-[address] [facility] Comment on above: Order Comment: 514-1 Performed By: #### L 100.0100, L501.8820, L500.4050, L501.6710 ####[facility] [address] [place], [address] RBC (Bld) [#/Vol] 3.91 10*6/uL Low 4.2-5.4 [facility] Comment on above: Order Comment: 514-1 Performed By: #### L 100.0100, L501.8820, L500.4050, L501.6710 ####[facility] [address] [place], [address] RDW SD 52.0 fl High 35.1-43.[address] [facility] Comment on above: Order Comment: 514-1 Performed By: #### L 100.0100, L501.8820, L500.4050, L501.6710 ####[facility] [address] [place], [address] WBC (Bld) [#/Vol] 9.7 10*3/uL Normal 4.4-11.0 [facility] Comment on above: Order Comment: 514-1 Performed By: #### L 100.0100, L501.8820, L500.4050, L501.6710 ####[facility] [address] [place], [address] CRPon 12-18-2023 C-REACTIVE PROT 37.20 mg/L High 0.0-3.[address] [facility] Comment on above: Order Comment: 514-1 Result Comment: C-Re active Protein (CRP) provides useful information for thediagnosis, therapy and monitoring of inflammatory processesand associated diseases. For the evaluation of Relative Riskfor Cardiovascular Disease, a High Sensitivity CRP (HSCRP)should be ordered. Performed By: #### L 100.0100, L501.8820, L500.4050, L501.6710 ####[facility] [address] [place], [address] Comprehensive Metabolic Prof ilon 12-18-2023 Albumin [Mass/Vol] 1.5 g/dL Low 3.2-5.0 [facility] Comment on above: Order Comment: 514-1 Performed By: #### L 100.0100, L501.8820, L500.4050, L501.6710 ####[facility] [address] [place], [address] Albumin/Globulin [Mass ratio] 0.4 {ratio} Low 0.9-2.[address] [facility] Comment on above: Order Comment: 514-1 Performed By: #### L 100.0100, L501.8820, L500.4050, L501.6710 ####[facility] [address] [place], [address] ALK P 150 U/L High 45-[address] [facility] Comment on above: Order Comment: 514-1 Performed By: #### L 100.0100, L501.8820, L500.4050, L501.6710 ####[facility] [address] [place], [address] ALT [Catalytic activity/Vol] 14 U/L Normal 13-[address] [facility] Comment on above: Order Comment: 514-1 Performed By: #### L 100.0100, L501.8820, L500.4050, L501.6710 ####[facility] [address] [place], [address] AST [Catalytic activity/Vol] 22 U/L Normal 15-[address] [facility] Comment on above: Order Comment: 514-1 Performed By: #### L 100.0100, L501.8820, L500.4050, L501.6710 ####[facility] [address] [place], [address] Bilirubin [Mass/Vol] 0.20 mg/dL Normal 0.20-1.00 [facility] Comment on above: Order Comment: 514-1 Result Comment: For patients on eltrombopag therapy, use of Dimension [place] TBIL is not recommended. Performed By: #### L 100.0100, L501.8820, L500.4050, L501.6710 ####[facility] [address] [place], [address] BUN/CRE 25.2 RATIO High 10-[address] [facility] Comment on above: Order Comment: 514-1 Performed By: #### L 100.0100, L501.8820, L500.4050, L501.6710 ####[facility] [address] [place], [address] CA,Total 7.6 mg/dL Low 8.5-10.[address] [facility] Comment on above: Order Comment: 514-1 Performed By: #### L 100.0100, L501.8820, L500.4050, L501.6710 ####[facility] [address] [place], [address] Chloride [Moles/Vol] 105 mmol/L Normal 98-107 [facility] Comment on above: Order Comment: 514-1 Performed By: #### L 100.0100, L501.8820, L500.4050, L501.6710 ####[facility] [address] [place], [address] CO2 [Moles/Vol] 28.0 mmol/L Normal 21.0-32.[address] [facility] Comment on above: Order Comment: 514-1 Performed By: #### L 100.0100, L501.8820, L500.4050, L501.6710 ####[facility] [address] [place], [address] Creatinine [Mass/Vol] 0.56 mg/dL Normal 0.55-1.02 [facility] Comment on above: Order Comment: 514-1 Result Comment: The validity of the calculated GFR GFRAA in patients over70 years has not been determined. Clinical correlation isessential. Performed By: #### L 100.0100, L501.8820, L500.4050, L501.6710 ####[facility] [address] [place], [address] EST GFR - AA 137 mL/min Normal >[address] [facility] Comment on above: Order Comment: 514- Result Comment: Afri can Malagasy GFR Calc Performed By: #### L 100.0100, L501.8820, L500.4050, L501.6710 ####[facility] [address] [place], [address] GAP 5 Normal 5-[address] [facility] Comment on above: Order Comment: 514-1 Performed By: #### L 100.0100, L501.8820, L500.4050, L501.6710 ####[facility] [address] [place], [address] GFR/1.73 sq M.predicted among non-blacks MDRD (S/P/Bld) [Vol rate/Area] 113 mL/min/{1.73_m2} Normal >[address] [facility] Comment on above: Order Comment: - Result Comment: Non- GFR Calc Performed By: #### L 100.0100, L501.8820, L500.4050, L501.6710 ####[facility] [address] [place], [address] Globulin (S) [Mass/Vol] 3.4 g/dL Normal 2.2-4.[address] [facility] Comment on above: Order Comment: 514-1 Performed By: #### L 100.0100, L501.8820, L500.4050, L501.6710 ####[facility] [address] [place], [address] Glucose [Mass/Vol] 96 mg/dL Normal 74-106 [facility] Comment on above: Order Comment: 514-1 Performed By: #### L 100.0100, L501.8820, L500.4050, L501.6710 ####[facility] [address] [place], [address] Potassium [Moles/Vol] 2.8 mmol/L Low 3.5-5.1 [facility] Comment on above: Order Comment: 514-1 Performed By: #### L 100.0100, L501.8820, L500.4050, L501.6710 ####[facility] [address] [place], [address] Sodium [Moles/Vol] 138 mmol/L Normal 136-145 [facility] Comment on above: Order Comment: 514-1 Performed By: #### L 100.0100, L501.8820, L500.4050, L501.6710 ####[facility] [address] [place], [address] T PROT 4.9 g/dL Low 6.4-8.[address] [facility] Comment on above: Order Comment: 514-1 Performed By: #### L 100.0100, L501.8820, L500.4050, L501.6710 ####[facility] [address] [place], [address] Urea nitrogen [Mass/Vol] 14 mg/dL Normal 7-[address] [facility] Comment on above: Order Comment: 514-1 Performed By: #### L 100.0100, L501.8820, L500.4050, L501.6710 ####[facility] [address] [place], [address] Vancomycin, Trough Levelon 0 12-18-2023 VANCO, TROUGH 22.0 ug/mL High 5.0-15.[address] [facility] Comment on above: Order Comment: 514-1 6722 Result Comment: VANC OMYCIN STANDARED DRUG THERAPY TROUGH LEVEL: 5.0 - 15.0 mg/LVANCOMYCIN HIGH INTENSITY THERAPY TROUGH LEVEL: 15.0 - 20.0 mg/LHigh Intensity therapy recommended for serious lifethreatening infections include:- Zcneveclbo-Fkhwjmuzbcdf-Gidhynrhn (Ventilator/Healtcare Associated)-SepsisPLEASE CONTACT PHARMACY SERVICES (#7307) FOR INTERPRETATIONOF RESULTS. Performed By: #### L 100.0100, L501.8820, L500.4050, L501.6710 ####[facility] [address] [place], [address] Emergency Department Summary on 12-17-2023 Emergency Department Summary Normal [facility] Vancomycin, Random Levelon 0 12-12-2023 VANCO, RANDOM 15.9 ug/mL High 0.0-15.[address] [facility] Comment on above: Order Comment: 514.1 Result Comment: VANC OMYCIN STANDARD DRUG THERAPY: CRITICAL VALUE IS > 15.0 mg/LVANCOMYCIN HIGH INTENSITY THERAPY: CRITICAL VALUE IS > 20.0 mg/LPLEASE CONTACT PHARMACY SERVICES (#4962) FOR INTERPRETATIONOF RESULTS. THIS RESULT DOES NOT REPRESENT A PEAK OR TROUGHLEVEL FOR THIS DRUG. Performed By: #### L 501.8850 ####[facility] [address] [place], [address] CBC W/Diff, Automatedon Absolute Lymph 2.12 X10 3/uL Normal 0.83-4.[address] [facility] Comment on above: Order Comment: 514.1 Performed By: #### L 100.0100, L501.8820, L500.4050, L501.6710, L501.9520 ####[facility] [address] [place], [address] Absolute Neut 8.2 X10 3/uL High 2.0-7.[address] [facility] Comment on above: Order Comment: 514.1 Performed By: #### L 100.0100, L501.8820, L500.4050, L501.6710, L501.9520 ####[facility] [address] [place], [address] Basophils/100 WBC (Bld) 0.4 % Normal 0-[address] [facility] Comment on above: Order Comment: 514.1 Performed By: #### L 100.0100, L501.8820, L500.4050, L501.6710, L501.9520 ####[facility] [address] [place], [address] Eosinophils/100 WBC (Bld) 1.5 % Normal 0-[address] [facility] Comment on above: Order Comment: 514.1 Performed By: #### L 100.0100, L501.8820, L500.4050, L501.6710, L501.9520 ####[facility] [address] [place], [address] Erythrocyte distribution width (RBC) [Ratio] 17.1 % High 11.6-14.[address] [facility] Comment on above: Order Comment: 514.1 Performed By: #### L 100.0100, L501.8820, L500.4050, L501.6710, L501.9520 ####[facility] [address] [place], [address] Hematocrit (Bld) [Volume fraction] 33.2 % Low 37-[address] [facility] Comment on above: Order Comment: 514.1 Performed By: #### L 100.0100, L501.8820, L500.4050, L501.6710, L501.9520 ####[facility] [address] [place], [address] Hemoglobin (Bld) [Mass/Vol] 10.0 g/dL Low 12.0-15.[address] [facility] Comment on above: Order Comment: 514.1 Performed By: #### L 100.0100, L501.8820, L500.4050, L501.6710, L501.9520 ####[facility] [address] [place], [address] IG% 1.200 High 0.0-0.[address] [facility] Comment on above: Order Comment: 514.1 Result Comment: IG% - Immature Granulocytes (promyelocytes, myelocytes andmetamyelocytes) > 1% indicates that a LEFT SHIFT is Present. Performed By: #### L 100.0100, L501.8820, L500.4050, L501.6710, L501.9520 ####[facility] [address] [place], [address] Lymphocytes/100 WBC (Bld) 18.8 % Low 19-[address] [facility] Comment on above: Order Comment: 514.1 Performed By: #### L 100.0100, L501.8820, L500.4050, L501.6710, L501.9520 ####[facility] [address] [place], [address] MCH (RBC) [Entitic mass] 25.4 pg Low 27.0-32.[address] [facility] Comment on above: Order Comment: 514.1 Performed By: #### L 100.0100, L501.8820, L500.4050, L501.6710, L501.9520 ####[facility] [address] [place], [address] MCHC (RBC) [Mass/Vol] 30.1 g/dL Low 32-36 [facility] Comment on above: Order Comment: 514.1 Performed By: #### L 100.0100, L501.8820, L500.4050, L501.6710, L501.9520 ####[facility] [address] [place], [address] MCV (RBC) [Entitic vol] 84.5 fL Normal 81-[address] [facility] Comment on above: Order Comment: 514.1 Performed By: #### L 100.0100, L501.8820, L500.4050, L501.6710, L501.9520 ####[facility] [address] [place], [address] Monocytes/100 WBC (Bld) 5.9 % Normal 0-[address] [facility] Comment on above: Order Comment: 514.1 Performed By: #### L 100.0100, L501.8820, L500.4050, L501.6710, L501.9520 ####[facility] [address] [place], [address] Neutrophils/100 WBC (Bld) 72.2 % High 47-[address] [facility] Comment on above: Order Comment: 514.1 Performed By: #### L 100.0100, L501.8820, L500.4050, L501.6710, L501.9520 ####[facility] [address] [place], [address] Nucleated RBC (Bld) [#/Vol] 0 10*3/uL Normal 0-[address] [facility] Comment on above: Order Comment: 514.1 Performed By: #### L 100.0100, L501.8820, L500.4050, L501.6710, L501.9520 ####[facility] [address] [place], [address] Platelet mean volume (Bld) [Entitic vol] 9.5 fL Normal 6.2-12.[address] [facility] Comment on above: Order Comment: 514.1 Performed By: #### L 100.0100, L501.8820, L500.4050, L501.6710, L501.9520 ####[facility] [address] [place], [address] Platelets (Bld) [#/Vol] 254 10*3/uL Normal 150-[address] [facility] Comment on above: Order Comment: 514.1 Performed By: #### L 100.0100, L501.8820, L500.4050, L501.6710, L501.9520 ####[facility] [address] [place], [address] RBC (Bld) [#/Vol] 3.93 10*6/uL Low 4.2-5.4 [facility] Comment on above: Order Comment: 514.1 Performed By: #### L 100.0100, L501.8820, L500.4050, L501.6710, L501.9520 ####[facility] [address] [place], [address] RDW SD 53.3 fl High 35.1-43.[address] [facility] Comment on above: Order Comment: 514.1 Performed By: #### L 100.0100, L501.8820, L500.4050, L501.6710, L501.9520 ####[facility] [address] [place], [address] WBC (Bld) [#/Vol] 11.3 10*3/uL High 4.4-11.0 [facility] Comment on above: Order Comment: 514.1 Performed By: #### L 100.0100, L501.8820, L500.4050, L501.6710, L501.9520 ####[facility] [address] [place], [address] CRPon 12-11-2023 C-REACTIVE PROT 75.80 mg/L High 0.0-3.[address] [facility] Comment on above: Order Comment: 514.1 Result Comment: C-Re active Protein (CRP) provides useful information for thediagnosis, therapy and monitoring of inflammatory processesand associated diseases. For the evaluation of Relative Riskfor Cardiovascular Disease, a High Sensitivity CRP (HSCRP)should be ordered. Performed By: #### L 100.0100, L501.8820, L500.4050, L501.6710, L501.9520 ####[facility] [address] [place], [address] Comprehensive Metabolic Prof ilon 12-11-2023 Albumin [Mass/Vol] 1.7 g/dL Low 3.2-5.0 [facility] Comment on above: Order Comment: 514.1 Performed By: #### L 100.0100, L501.8820, L500.4050, L501.6710, L501.9520 ####[facility] [address] [place], [address] Albumin/Globulin [Mass ratio] 0.4 {ratio} Low 0.9-2.[address] [facility] Comment on above: Order Comment: 514.1 Performed By: #### L 100.0100, L501.8820, L500.4050, L501.6710, L501.9520 ####[facility] [address] [place], [address] ALK P 163 U/L High 45-[address] [facility] Comment on above: Order Comment: 514.1 Performed By: #### L 100.0100, L501.8820, L500.4050, L501.6710, L501.9520 ####[facility] [address] [place], [address] ALT [Catalytic activity/Vol] 14 U/L Normal 13-[address] [facility] Comment on above: Order Comment: 514.1 Performed By: #### L 100.0100, L501.8820, L500.4050, L501.6710, L501.9520 ####[facility] [address] [place], [address] AST [Catalytic activity/Vol] 21 U/L Normal 15-[address] [facility] Comment on above: Order Comment: 514.1 Performed By: #### L 100.0100, L501.8820, L500.4050, L501.6710, L501.9520 ####[facility] [address] [place], [address] Bilirubin [Mass/Vol] 0.30 mg/dL Normal 0.20-1.00 [facility] Comment on above: Order Comment: 514.1 Result Comment: For patients on eltrombopag therapy, use of Dimension [place] TBIL is not recommended. Performed By: #### L 100.0100, L501.8820, L500.4050, L501.6710, L501.9520 ####[facility] [address] [place], [address] BUN/CRE 25.6 RATIO High 10-[address] [facility] Comment on above: Order Comment: 514.1 Performed By: #### L 100.0100, L501.8820, L500.4050, L501.6710, L501.9520 ####[facility] [address] [place], [address] CA,Total 7.9 mg/dL Low 8.5-10.[address] [facility] Comment on above: Order Comment: 514.1 Performed By: #### L 100.0100, L501.8820, L500.4050, L501.6710, L501.9520 ####[facility] [address] [place], [address] Chloride [Moles/Vol] 100 mmol/L Normal 98-107 [facility] Comment on above: Order Comment: 514.1 Performed By: #### L 100.0100, L501.8820, L500.4050, L501.6710, L501.9520 ####[facility] [address] [place], [address] CO2 [Moles/Vol] 28.0 mmol/L Normal 21.0-32.[address] [facility] Comment on above: Order Comment: 514.1 Performed By: #### L 100.0100, L501.8820, L500.4050, L501.6710, L501.9520 ####[facility] [address] [place], [address] Creatinine [Mass/Vol] 0.62 mg/dL Normal 0.55-1.02 [facility] Comment on above: Order Comment: 514.1 Result Comment: The validity of the calculated GFR GFRAA in patients over70 years has not been determined. Clinical correlation isessential. Performed By: #### L 100.0100, L501.8820, L500.4050, L501.6710, L501.9520 ####[facility] [address] [place], [address] EST GFR - AA 119 mL/min Normal >[address] [facility] Comment on above: Order Comment: 514.1 Result Comment: Afri can Malagasy GFR Calc Performed By: #### L 100.0100, L501.8820, L500.4050, L501.6710, L501.9520 ####[facility] [address] [place], [address] GAP 6 Normal 5-[address] [facility] Comment on above: Order Comment: 514.1 Performed By: #### L 100.0100, L501.8820, L500.4050, L501.6710, L501.9520 ####[facility] [address] [place], [address] GFR/1.73 sq M.predicted among non-blacks MDRD (S/P/Bld) [Vol rate/Area] 99 mL/min/{1.73_m2} Normal >[address] [facility] Comment on above: Order Comment: 514.1 Result Comment: Non- GFR Calc Performed By: #### L 100.0100, L501.8820, L500.4050, L501.6710, L501.9520 ####[facility] [address] [place], [address] Globulin (S) [Mass/Vol] 4.0 g/dL Normal 2.2-4.[address] [facility] Comment on above: Order Comment: 514.1 Performed By: #### L 100.0100, L501.8820, L500.4050, L501.6710, L501.9520 ####[facility] [address] [place], [address] Glucose [Mass/Vol] 112 mg/dL High 74-106 [facility] Comment on above: Order Comment: 514.1 Result Comment: Fast ing Glucose result from 100 to 125 mg/dLsuggests IMPAIRED HOMEOSTASIS per A.D.A. criteria. Performed By: #### L 100.0100, L501.8820, L500.4050, L501.6710, L501.9520 ####[facility] [address] [place], [address] Potassium [Moles/Vol] 3.6 mmol/L Normal 3.5-5.1 [facility] Comment on above: Order Comment: 514.1 Performed By: #### L 100.0100, L501.8820, L500.4050, L501.6710, L501.9520 ####[facility] [address] [place], [address] Sodium [Moles/Vol] 134 mmol/L Low 136-145 [facility] Comment on above: Order Comment: 514.1 Performed By: #### L 100.0100, L501.8820, L500.4050, L501.6710, L501.9520 ####[facility] [address] [place], [address] T PROT 5.7 g/dL Low 6.4-8.[address] [facility] Comment on above: Order Comment: 514.1 Performed By: #### L 100.0100, L501.8820, L500.4050, L501.6710, L501.9520 ####[facility] [address] [place], [address] Urea nitrogen [Mass/Vol] 16 mg/dL Normal 7-[address] [facility] Comment on above: Order Comment: 514.1 Performed By: #### L 100.0100, L501.8820, L500.4050, L501.6710, L501.9520 ####[facility] [address] [place], [address] Thyroid Stim Hormone (TSH)on 12-11-2023 TSH 2.240 uIU/mL Normal 0.358-3.[address] [facility] Comment on above: Order Comment: 514.1 Performed By: #### L 100.0100, L501.8820, L500.4050, L501.6710, L501.9520 ####[facility] [address] [place], [address] Vancomycin, Trough Levelon 0 12-11-2023 VANCO, TROUGH 20.7 ug/mL High 5.0-15.[address] [facility] Comment on above: Order Comment: 514.1 0000 Result Comment: VANC OMYCIN STANDARED DRUG THERAPY TROUGH LEVEL: 5.0 - 15.0 mg/LVANCOMYCIN HIGH INTENSITY THERAPY TROUGH LEVEL: 15.0 - 20.0 mg/LHigh Intensity therapy recommended for serious lifethreatening infections include:- Nkutsbhvfc-Tntnfueucnev-Lqzrlpgil (Ventilator/Healtcare Associated)-SepsisPLEASE CONTACT PHARMACY SERVICES (#2658) FOR INTERPRETATIONOF RESULTS. Performed By: #### L 100.0100, L501.8820, L500.4050, L501.6710, L501.9520 ####[facility] [address] [place], [address] CBC W/Diff, Automatedon 08 Absolute Lymph 2.08 X10 3/uL Normal 0.83-4.[address] [facility] Comment on above: Order Comment: 514-1 Performed By: #### L 100.0100, L501.8820, L500.4050, L501.6710 ####[facility] [address] [place], [address] Absolute Neut 9.0 X10 3/uL High 2.0-7.[address] [facility] Comment on above: Order Comment: 514-1 Performed By: #### L 100.0100, L501.8820, L500.4050, L501.6710 ####[facility] [address] [place], [address] Basophils/100 WBC (Bld) 0.6 % Normal 0-[address] [facility] Comment on above: Order Comment: 514-1 Performed By: #### L 100.0100, L501.8820, L500.4050, L501.6710 ####[facility] [address] [place], [address] Eosinophils/100 WBC (Bld) 2.2 % Normal 0-[address] [facility] Comment on above: Order Comment: 514-1 Performed By: #### L 100.0100, L501.8820, L500.4050, L501.6710 ####[facility] [address] [place], [address] Erythrocyte distribution width (RBC) [Ratio] 17.2 % High 11.6-14.[address] [facility] Comment on above: Order Comment: 514-1 Performed By: #### L 100.0100, L501.8820, L500.4050, L501.6710 ####[facility] [address] [place], [address] Hematocrit (Bld) [Volume fraction] 30.6 % Low 37-[address] [facility] Comment on above: Order Comment: 514-1 Performed By: #### L 100.0100, L501.8820, L500.4050, L501.6710 ####[facility] [address] [place], [address] Hemoglobin (Bld) [Mass/Vol] 9.4 g/dL Low 12.0-15.[address] [facility] Comment on above: Order Comment: 514-1 Performed By: #### L 100.0100, L501.8820, L500.4050, L501.6710 ####[facility] [address] [place], [address] IG% 0.700 Normal 0.0-0.[address] [facility] Comment on above: Order Comment: 514-1 Result Comment: IG% - Immature Granulocytes (promyelocytes, myelocytes andmetamyelocytes) > 1% indicates that a LEFT SHIFT is Present. Performed By: #### L 100.0100, L501.8820, L500.4050, L501.6710 ####[facility] [address] [place], [address] Lymphocytes/100 WBC (Bld) 16.7 % Low 19-[address] [facility] Comment on above: Order Comment: 514-1 Performed By: #### L 100.0100, L501.8820, L500.4050, L501.6710 ####[facility] [address] [place], [address] MCH (RBC) [Entitic mass] 26.4 pg Low 27.0-32.[address] [facility] Comment on above: Order Comment: 514-1 Performed By: #### L 100.0100, L501.8820, L500.4050, L501.6710 ####[facility] [address] [place], [address] MCHC (RBC) [Mass/Vol] 30.7 g/dL Low 32-36 [facility] Comment on above: Order Comment: 514-1 Performed By: #### L 100.0100, L501.8820, L500.4050, L501.6710 ####[facility] [address] [place], [address] MCV (RBC) [Entitic vol] 86.0 fL Normal 81-[address] [facility] Comment on above: Order Comment: 514-1 Performed By: #### L 100.0100, L501.8820, L500.4050, L501.6710 ####[facility] [address] [place], [address] Monocytes/100 WBC (Bld) 7.7 % Normal 0-[address] [facility] Comment on above: Order Comment: 514-1 Performed By: #### L 100.0100, L501.8820, L500.4050, L501.6710 ####[facility] [address] [place], [address] Neutrophils/100 WBC (Bld) 72.1 % High 47-[address] [facility] Comment on above: Order Comment: 514-1 Performed By: #### L 100.0100, L501.8820, L500.4050, L501.6710 ####[facility] [address] [place], [address] Nucleated RBC (Bld) [#/Vol] 0 10*3/uL Normal 0-[address] [facility] Comment on above: Order Comment: 514-1 Performed By: #### L 100.0100, L501.8820, L500.4050, L501.6710 ####[facility] [address] [place], [address] Platelet mean volume (Bld) [Entitic vol] 9.2 fL Normal 6.2-12.[address] [facility] Comment on above: Order Comment: 514-1 Performed By: #### L 100.0100, L501.8820, L500.4050, L501.6710 ####[facility] [address] [place], [address] Platelets (Bld) [#/Vol] 319 10*3/uL Normal 150-[address] [facility] Comment on above: Order Comment: 514-1 Performed By: #### L 100.0100, L501.8820, L500.4050, L501.6710 ####[facility] [address] [place], [address] RBC (Bld) [#/Vol] 3.56 10*6/uL Low 4.2-5.4 [facility] Comment on above: Order Comment: 514-1 Performed By: #### L 100.0100, L501.8820, L500.4050, L501.6710 ####[facility] [address] [place], [address] RDW SD 55.0 fl High 35.1-43.[address] [facility] Comment on above: Order Comment: 514-1 Performed By: #### L 100.0100, L501.8820, L500.4050, L501.6710 ####[facility] [address] [place], [address] WBC (Bld) [#/Vol] 12.5 10*3/uL High 4.4-11.0 [facility] Comment on above: Order Comment: 514-1 Performed By: #### L 100.0100, L501.8820, L500.4050, L501.6710 ####[facility] [address] [place], [address] CRPon 12-03-2023 C-REACTIVE PROT 108.00 mg/L High 0.0-3.[address] [facility] Comment on above: Order Comment: 514-1 Result Comment: C-Re active Protein (CRP) provides useful information for thediagnosis, therapy and monitoring of inflammatory processesand associated diseases. For the evaluation of Relative Riskfor Cardiovascular Disease, a High Sensitivity CRP (HSCRP)should be ordered. Performed By: #### L 100.0100, L501.8820, L500.4050, L501.6710 ####[facility] [address] [place], [address] Comprehensive Metabolic Prof ilon 12-03-2023 Albumin [Mass/Vol] 1.8 g/dL Low 3.2-5.0 [facility] Comment on above: Order Comment: 514-1 Performed By: #### L 100.0100, L501.8820, L500.4050, L501.6710 ####[facility] [address] [place], [address] Albumin/Globulin [Mass ratio] 0.4 {ratio} Low 0.9-2.[address] [facility] Comment on above: Order Comment: 514-1 Performed By: #### L 100.0100, L501.8820, L500.4050, L501.6710 ####[facility] [address] [place], [address] ALK P 203 U/L High 45-[address] [facility] Comment on above: Order Comment: 514-1 Performed By: #### L 100.0100, L501.8820, L500.4050, L501.6710 ####[facility] [address] [place], [address] ALT [Catalytic activity/Vol] 14 U/L Normal 13-[address] [facility] Comment on above: Order Comment: 514-1 Performed By: #### L 100.0100, L501.8820, L500.4050, L501.6710 ####[facility] [address] [place], [address] AST [Catalytic activity/Vol] 20 U/L Normal 15-[address] [facility] Comment on above: Order Comment: 514-1 Performed By: #### L 100.0100, L501.8820, L500.4050, L501.6710 ####[facility] [address] [place], [address] Bilirubin [Mass/Vol] 0.30 mg/dL Normal 0.20-1.00 [place] Comment on above: Order Comment: 514-1 Result Comment: For patients on eltrombopag therapy, use of Dimension [place] TBIL is not recommended. Performed By: #### L 100.0100, L501.8820, L500.4050, L501.6710 ####[facility] [address] [place], [address] BUN/CRE 24.4 RATIO High 10-[address] [facility] Comment on above: Order Comment: 514-1 Performed By: #### L 100.0100, L501.8820, L500.4050, L501.6710 ####[facility] [address] [place], [address] CA,Total 8.3 mg/dL Low 8.5-10.[address] [facility] Comment on above: Order Comment: 514-1 Performed By: #### L 100.0100, L501.8820, L500.4050, L501.6710 ####[facility] [address] [place], [address] Chloride [Moles/Vol] 100 mmol/L Normal 98-107 [place] Comment on above: Order Comment: 514-1 Performed By: #### L 100.0100, L501.8820, L500.4050, L501.6710 ####[facility] [address] [place], [address] CO2 [Moles/Vol] 26.0 mmol/L Normal 21.0-32.[address] [facility] Comment on above: Order Comment: 514-1 Performed By: #### L 100.0100, L501.8820, L500.4050, L501.6710 ####[facility] [address] [place], [address] Creatinine [Mass/Vol] 0.78 mg/dL Normal 0.55-1.02 [facility] Comment on above: Order Comment: 514-1 Result Comment: The validity of the calculated GFR GFRAA in patients over70 years has not been determined. Clinical correlation isessential. Performed By: #### L 100.0100, L501.8820, L500.4050, L501.6710 ####[facility] [address] [place], [address] EST GFR - AA 92 mL/min Normal >[address] [facility] Comment on above: Order Comment: 514-1 Result Comment: Afri can Malagasy GFR Calc Performed By: #### L 100.0100, L501.8820, L500.4050, L501.6710 ####[facility] [address] [place], [address] GAP 10 Normal 5-[address] [facility] Comment on above: Order Comment: 514-1 Performed By: #### L 100.0100, L501.8820, L500.4050, L501.6710 ####[facility] [address] [place], [address] GFR/1.73 sq M.predicted among non-blacks MDRD (S/P/Bld) [Vol rate/Area] 76 mL/min/{1.73_m2} Normal >[address] [facility] Comment on above: Order Comment: 514-1 Result Comment: Non- GFR Calc Performed By: #### L 100.0100, L501.8820, L500.4050, L501.6710 ####[facility] [address] [place], [address] Globulin (S) [Mass/Vol] 4.0 g/dL Normal 2.2-4.[address] [facility] Comment on above: Order Comment: 514-1 Performed By: #### L 100.0100, L501.8820, L500.4050, L501.6710 ####[facility] [address] [place], [address] Glucose [Mass/Vol] 132 mg/dL High 74-106 [facility] Comment on above: Order Comment: 514-1 Result Comment: Fast ing Glucose result greater than or equal to 126 mg/dLsuggests DIABETES MELLITUS per A.D.A. criteria. Performed By: #### L 100.0100, L501.8820, L500.4050, L501.6710 ####[facility] [address] [place], [address] Potassium [Moles/Vol] 3.3 mmol/L Low 3.5-5.1 [facility] Comment on above: Order Comment: 514-1 Performed By: #### L 100.0100, L501.8820, L500.4050, L501.6710 ####[facility] [address] [place], [address] Sodium [Moles/Vol] 136 mmol/L Normal 136-145 [facility] Comment on above: Order Comment: 514-1 Performed By: #### L 100.0100, L501.8820, L500.4050, L501.6710 ####[facility] [address] [place], [address] T PROT 5.8 g/dL Low 6.4-8.[address] [facility] Comment on above: Order Comment: 514-1 Performed By: #### L 100.0100, L501.8820, L500.4050, L501.6710 ####[facility] [address] [place], [address] Urea nitrogen [Mass/Vol] 19 mg/dL High 7-[address] [facility] Comment on above: Order Comment: 514-1 Performed By: #### L 100.0100, L501.8820, L500.4050, L501.6710 ####[facility] [address] [place], [address] Vancomycin, Trough Levelon 0 12-03-2023 VANCO, TROUGH 18.9 ug/mL High 5.0-15.[address] [facility] Comment on above: Order Comment: 514-1 4246 Result Comment: VANC OMYCIN STANDARED DRUG THERAPY TROUGH LEVEL: 5.0 - 15.0 mg/LVANCOMYCIN HIGH INTENSITY THERAPY TROUGH LEVEL: 15.0 - 20.0 mg/LHigh Intensity therapy recommended for serious lifethreatening infections include:- Uwphygtcnn-Rtthyzukuldv-Ivnwfsnpn (Ventilator/Healtcare Associated)-SepsisPLEASE CONTACT PHARMACY SERVICES (#2255) FOR INTERPRETATIONOF RESULTS. Performed By: #### L 100.0100, L501.8820, L500.4050, L501.6710 ####[facility] [address] [place], [address] Vancomycin, Trough Levelon 0 11-30-2023 VANCO, TROUGH 23.4 ug/mL High 5.0-15.[address] [facility] Comment on above: Order Comment: 514.1 0000 Result Comment: VANC OMYCIN STANDARED DRUG THERAPY TROUGH LEVEL: 5.0 - 15.0 mg/LVANCOMYCIN HIGH INTENSITY THERAPY TROUGH LEVEL: 15.0 - 20.0 mg/LHigh Intensity therapy recommended for serious lifethreatening infections include:- Rivedjtgrt-Iazefilaatms-Bhwiswxgy (Ventilator/Healtcare Associated)-SepsisPLEASE CONTACT PHARMACY SERVICES (#2475) FOR INTERPRETATIONOF RESULTS. Performed By: #### L 501.8820 ####[facility] [address] [place], [address] Folates, (Folic Acid)on 11-08 FOLATES 16.60 ng/mL Normal 3.1-55.[address] [facility] Comment on above: Order Comment: 514-1 N Result Comment: Slig ht Hemolysis, Result may be falsely increased. Performed By: #### L 503.0105, L506.1000, L506.0250 ####[facility] [address] [place], [address] Vitamin B12on 11-28-2023 Cobalamin (Vitamin B12) [Mass/Vol] 576 pg/mL Normal 211-[address] [facility] Comment on above: Order Comment: 514-1 Performed By: #### L 503.0105, L506.1000, L506.0250 ####[facility] [address] [place], [address] Vitamin D,25 Hydroxyon 11-27 Vitamin D 25-OH 51.4 ng/mL Normal [facility] Comment on above: Order Comment: 514-1 Result Comment: Ele min D 25(OH) Status Range Deficiency <20 ng/mL (50nmol/L) Insufficiency 20 - 30 ng/mL (50 - 75 nmol/L) Sufficiency 30 - 100 ng/mL (75 - 250 nmol/L) Toxicity >100 ng/mL (>250 nmol/L) Performed By: #### L 503.0105, L506.1000, L506.0250 ####[facility] [address] [place], [address] Vancomycin, Random Levelon 0 11-27-2023 VANCO, RANDOM 15.9 ug/mL High 0.0-15.[address] [facility] Comment on above: Order Comment: 514.1 Result Comment: VANC OMYCIN STANDARD DRUG THERAPY: CRITICAL VALUE IS > 15.0 mg/LVANCOMYCIN HIGH INTENSITY THERAPY: CRITICAL VALUE IS > 20.0 mg/LPLEASE CONTACT PHARMACY SERVICES (#2135) FOR INTERPRETATIONOF RESULTS. THIS RESULT DOES NOT REPRESENT A PEAK OR TROUGHLEVEL FOR THIS DRUG. Performed By: #### L 501.8850 ####[facility] [address] [place], [address] Basic Metabolic Profile (BMP )on 11-26-2023 BUN/CRE 19.4 RATIO Normal 10-[address] [facility] Comment on above: Order Comment: 514.1 Performed By: #### L 100.0100, L500.2500, L501.6710, L501.8820 ####[facility] [address] [place], [address] CA,Total 8.2 mg/dL Low 8.5-10.[address] [facility] Comment on above: Order Comment: 514.1 Performed By: #### L 100.0100, L500.2500, L501.6710, L501.8820 ####[facility] [address] [place], [address] Chloride [Moles/Vol] 106 mmol/L Normal 98-107 [place] Comment on above: Order Comment: 514.1 Performed By: #### L 100.0100, L500.2500, L501.6710, L501.8820 ####[facility] [address] [place], [address] CO2 [Moles/Vol] 27.0 mmol/L Normal 21.0-32.[address] [facility] Comment on above: Order Comment: 514.1 Performed By: #### L 100.0100, L500.2500, L501.6710, L501.8820 ####[facility] [address] [place], [address] Creatinine [Mass/Vol] 0.62 mg/dL Normal 0.55-1.02 [facility] Comment on above: Order Comment: 514.1 Result Comment: The validity of the calculated GFR GFRAA in patients over70 years has not been determined. Clinical correlation isessential. Performed By: #### L 100.0100, L500.2500, L501.6710, L501.8820 ####[facility] [address] [place], [address] EST GFR - AA 121 mL/min Normal >[address] [facility] Comment on above: Order Comment: 514.1 Result Comment: Afri can Malagasy GFR Calc Performed By: #### L 100.0100, L500.2500, L501.6710, L501.8820 ####[facility] [address] [place], [address] GAP 5 Normal 5-[address] [facility] Comment on above: Order Comment: 514.1 Performed By: #### L 100.0100, L500.2500, L501.6710, L501.8820 ####[facility] [address] [place], [address] GFR/1.73 sq M.predicted among non-blacks MDRD (S/P/Bld) [Vol rate/Area] 100 mL/min/{1.73_m2} Normal >[address] [facility] Comment on above: Order Comment: 514.1 Result Comment: Non- GFR Calc Performed By: #### L 100.0100, L500.2500, L501.6710, L501.8820 ####[facility] [address] [place], [address] Glucose [Mass/Vol] 102 mg/dL Normal 74-106 [facility] Comment on above: Order Comment: 514.1 Result Comment: Fast ing Glucose result from 100 to 125 mg/dLsuggests IMPAIRED HOMEOSTASIS per A.D.A. criteria. Performed By: #### L 100.0100, L500.2500, L501.6710, L501.8820 ####[facility] [address] [place], [address] Potassium [Moles/Vol] 3.3 mmol/L Low 3.5-5.1 [facility] Comment on above: Order Comment: 514.1 Performed By: #### L 100.0100, L500.2500, L501.6710, L501.8820 ####[facility] [address] [place], [address] Sodium [Moles/Vol] 138 mmol/L Normal 136-145 [facility] Comment on above: Order Comment: 514.1 Performed By: #### L 100.0100, L500.2500, L501.6710, L501.8820 ####[facility] [address] [place], [address] Urea nitrogen [Mass/Vol] 12 mg/dL Normal 7-[address] [facility] Comment on above: Order Comment: 514.1 Performed By: #### L 100.0100, L500.2500, L501.6710, L501.8820 ####[facility] [address] [place], [address] CBC W/Diff, Automatedon 11-07 Absolute Lymph 2.11 X10 3/uL Normal 0.83-4.[address] [facility] Comment on above: Order Comment: 514.1 Performed By: #### L 100.0100, L500.2500, L501.6710, L501.8820 ####[facility] [address] [place], [address] Absolute Neut 3.8 X10 3/uL Normal 2.0-7.[address] [facility] Comment on above: Order Comment: 514.1 Performed By: #### L 100.0100, L500.2500, L501.6710, L501.8820 ####[facility] [address] [place], [address] Basophils/100 WBC (Bld) 0.6 % Normal 0-[address] [facility] Comment on above: Order Comment: 514.1 Performed By: #### L 100.0100, L500.2500, L501.6710, L501.8820 ####[facility] [address] [place], [address] Eosinophils/100 WBC (Bld) 3.6 % Normal 0-[address] [facility] Comment on above: Order Comment: 514.1 Performed By: #### L 100.0100, L500.2500, L501.6710, L501.8820 ####[facility] [address] [place], [address] Erythrocyte distribution width (RBC) [Ratio] 17.3 % High 11.6-14.[address] [facility] Comment on above: Order Comment: 514.1 Performed By: #### L 100.0100, L500.2500, L501.6710, L501.8820 ####[facility] [address] [place], [address] Hematocrit (Bld) [Volume fraction] 30.2 % Low 37-[address] [facility] Comment on above: Order Comment: 514.1 Performed By: #### L 100.0100, L500.2500, L501.6710, L501.8820 ####[facility] [address] [place], [address] Hemoglobin (Bld) [Mass/Vol] 9.1 g/dL Low 12.0-15.[address] [facility] Comment on above: Order Comment: 514.1 Performed By: #### L 100.0100, L500.2500, L501.6710, L501.8820 ####[facility] [address] [place], [address] IG% 0.400 Normal 0.0-0.[address] [facility] Comment on above: Order Comment: 514.1 Result Comment: IG% - Immature Granulocytes (promyelocytes, myelocytes andmetamyelocytes) > 1% indicates that a LEFT SHIFT is Present. Performed By: #### L 100.0100, L500.2500, L501.6710, L501.8820 ####[facility] [address] [place], [address] Lymphocytes/100 WBC (Bld) 31.5 % Normal 19-[address] [facility] Comment on above: Order Comment: 514.1 Performed By: #### L 100.0100, L500.2500, L501.6710, L501.8820 ####[facility] [address] [place], [address] MCH (RBC) [Entitic mass] 26.4 pg Low 27.0-32.[address] [facility] Comment on above: Order Comment: 514.1 Performed By: #### L 100.0100, L500.2500, L501.6710, L501.8820 ####[facility] [address] [place], [address] MCHC (RBC) [Mass/Vol] 30.1 g/dL Low 32-36 [facility] Comment on above: Order Comment: 514.1 Performed By: #### L 100.0100, L500.2500, L501.6710, L501.8820 ####[facility] [address] [place], [address] MCV (RBC) [Entitic vol] 87.5 fL Normal 81-[address] [facility] Comment on above: Order Comment: 514.1 Performed By: #### L 100.0100, L500.2500, L501.6710, L501.8820 ####[facility] [address] [place], [address] Monocytes/100 WBC (Bld) 7.5 % Normal 0-[address] [facility] Comment on above: Order Comment: 514.1 Performed By: #### L 100.0100, L500.2500, L501.6710, L501.8820 ####[facility] [address] [place], [address] Neutrophils/100 WBC (Bld) 56.4 % Normal 47-[address] [facility] Comment on above: Order Comment: 514.1 Performed By: #### L 100.0100, L500.2500, L501.6710, L501.8820 ####[facility] [address] [place], [address] Nucleated RBC (Bld) [#/Vol] 0 10*3/uL Normal 0-[address] [facility] Comment on above: Order Comment: 514.1 Performed By: #### L 100.0100, L500.2500, L501.6710, L501.8820 ####[facility] [address] [place], [address] Platelet mean volume (Bld) [Entitic vol] 8.5 fL Normal 6.2-12.[address] [facility] Comment on above: Order Comment: 514.1 Performed By: #### L 100.0100, L500.2500, L501.6710, L501.8820 ####[facility] [address] [place], [address] Platelets (Bld) [#/Vol] 240 10*3/uL Normal 150-[address] [facility] Comment on above: Order Comment: 514.1 Performed By: #### L 100.0100, L500.2500, L501.6710, L501.8820 ####[facility] [address] [place], [address] RBC (Bld) [#/Vol] 3.45 10*6/uL Low 4.2-5.4 [facility] Comment on above: Order Comment: 514.1 Performed By: #### L 100.0100, L500.2500, L501.6710, L501.8820 ####[facility] [address] [place], [address] RDW SD 56.0 fl High 35.1-43.[address] [facility] Comment on above: Order Comment: 514.1 Performed By: #### L 100.0100, L500.2500, L501.6710, L501.8820 ####[facility] [address] [place], [address] WBC (Bld) [#/Vol] 6.7 10*3/uL Normal 4.4-11.0 [facility] Comment on above: Order Comment: 514.1 Performed By: #### L 100.0100, L500.2500, L501.6710, L501.8820 ####[facility] [address] [place], [address] CRPon 11-26-2023 C-REACTIVE PROT 62.00 mg/L High 0.0-3.[address] [facility] Comment on above: Order Comment: 514.1 Result Comment: C-Re active Protein (CRP) provides useful information for thediagnosis, therapy and monitoring of inflammatory processesand associated diseases. For the evaluation of Relative Riskfor Cardiovascular Disease, a High Sensitivity CRP (HSCRP)should be ordered. Performed By: #### L 100.0100, L500.2500, L501.6710, L501.8820 ####[facility] [address] [place], [address] Vancomycin, Trough Levelon 0 8-19-2024 VANCO, TROUGH 27.3 ug/mL High 5.0-15.[address] [facility] Comment on above: Order Comment: 514.1 0000 Result Comment: VANC OMYCIN STANDARED DRUG THERAPY TROUGH LEVEL: 5.0 - 15.0 mg/LVANCOMYCIN HIGH INTENSITY THERAPY TROUGH LEVEL: 15.0 - 20.0 mg/LHigh Intensity therapy recommended for serious lifethreatening infections include:- Xwekoaojij-Mcbarjfmuefh-Sitcbulzn (Ventilator/Healtcare Associated)-SepsisPLEASE CONTACT PHARMACY SERVICES (#8801) FOR INTERPRETATIONOF RESULTS. Performed By: #### L 100.0100, L500.2500, L501.6710, L501.8820 ####[facility] [address] [place], [address] Basic Metabolic Profile (BMP )on 11-21-2023 BUN/CRE 21.1 RATIO High 10-[address] [facility] Comment on above: Order Comment: 514-1 Performed By: #### L 100.0100, L500.2500 ####[facility] [address] [place], [address] CA,Total 8.6 mg/dL Normal 8.5-10.[address] [facility] Comment on above: Order Comment: 514-1 Performed By: #### L 100.0100, L500.2500 ####[facility] [address] [place], [address] Chloride [Moles/Vol] 101 mmol/L Normal 98-107 [place] Comment on above: Order Comment: 514-1 Performed By: #### L 100.0100, L500.2500 ####[facility] [address] [place], [address] CO2 [Moles/Vol] 29.0 mmol/L Normal 21.0-32.[address] [facility] Comment on above: Order Comment: 514-1 Performed By: #### L 100.0100, L500.2500 ####[facility] [address] [place], [address] Creatinine [Mass/Vol] 0.62 mg/dL Normal 0.55-1.02 [facility] Comment on above: Order Comment: 514- Result Comment: The validity of the calculated GFR GFRAA in patients over70 years has not been determined. Clinical correlation isessential. Performed By: #### L 100.0100, L500.2500 ####[facility] [address] [place], [address] EST GFR - AA 122 mL/min Normal >[address] [facility] Comment on above: Order Comment: 514- Result Comment: Afri can Malagasy GFR Calc Performed By: #### L 100.0100, L500.2500 ####[facility] [address] [place], [address] GAP 6 Normal 5-[address] [facility] Comment on above: Order Comment: - Performed By: #### L 100.0100, L500.2500 ####[facility] [address] [place], [address] GFR/1.73 sq M.predicted among non-blacks MDRD (S/P/Bld) [Vol rate/Area] 100 mL/min/{1.73_m2} Normal >[address] [facility] Comment on above: Order Comment: - Result Comment: Non- GFR Calc Performed By: #### L 100.0100, L500.2500 ####[facility] [address] [place], [address] Glucose [Mass/Vol] 134 mg/dL High 74-106 [facility] Comment on above: Order Comment: 514- Result Comment: Fast ing Glucose result greater than or equal to 126 mg/dLsuggests DIABETES MELLITUS per A.D.A. criteria. Performed By: #### L 100.0100, L500.2500 ####[facility] [address] [place], [address] Potassium [Moles/Vol] 3.4 mmol/L Low 3.5-5.1 [facility] Comment on above: Order Comment: 514-1 Performed By: #### L 100.0100, L500.2500 ####[facility] [address] [place], [address] Sodium [Moles/Vol] 136 mmol/L Normal 136-145 [facility] Comment on above: Order Comment: 514-1 Performed By: #### L 100.0100, L500.2500 ####[facility] [address] [place], [address] Urea nitrogen [Mass/Vol] 13 mg/dL Normal 7-[address] [facility] Comment on above: Order Comment: 514-1 Performed By: #### L 100.0100, L500.2500 ####[facility] [address] [place], [address] CBC W/Diff, Automatedon 08-04 12-2023 Absolute Lymph 1.69 X10 3/uL Normal 0.83-4.[address] [facility] Comment on above: Order Comment: 514-1 Performed By: #### L 100.0100, L500.2500 ####[facility] [address] [place], [address] Absolute Neut 5.1 X10 3/uL Normal 2.0-7.[address] [facility] Comment on above: Order Comment: 514-1 Performed By: #### L 100.0100, L500.2500 ####[facility] [address] [place], [address] Basophils/100 WBC (Bld) 0.5 % Normal 0-[address] [facility] Comment on above: Order Comment: 514-1 Performed By: #### L 100.0100, L500.2500 ####[facility] [address] [place], [address] Eosinophils/100 WBC (Bld) 2.9 % Normal 0-[address] [facility] Comment on above: Order Comment: 514-1 Performed By: #### L 100.0100, L500.2500 ####[facility] [address] [place], [address] Erythrocyte distribution width (RBC) [Ratio] 17.3 % High 11.6-14.[address] [facility] Comment on above: Order Comment: 514-1 Performed By: #### L 100.0100, L500.2500 ####[facility] [address] [place], [address] Hematocrit (Bld) [Volume fraction] 27.1 % Low 37-[address] [facility] Comment on above: Order Comment: 514-1 Performed By: #### L 100.0100, L500.2500 ####[facility] [id number] [place], [address] Hemoglobin (Bld) [Mass/Vol] 8.4 g/dL Low 12.0-15.[address] [facility] Comment on above: Order Comment: 514-1 Performed By: #### L 100.0100, L500.2500 ####[facility] [id number] [place], [place], [address] IG% 0.500 Normal 0.0-0.[address] [facility] Comment on above: Order Comment: 514-1 Result Comment: IG% - Immature Granulocytes (promyelocytes, myelocytes andmetamyelocytes) > 1% indicates that a LEFT SHIFT is Present. Performed By: #### L 100.0100, L500.2500 ####[facility] [address] [place], [address] Lymphocytes/100 WBC (Bld) 21.5 % Normal 19-[address] [facility] Comment on above: Order Comment: 514-1 Performed By: #### L 100.0100, L500.2500 ####[facility] [address] [place], [address] MCH (RBC) [Entitic mass] 27.0 pg Normal 27.0-32.[address] [facility] Comment on above: Order Comment: 514-1 Performed By: #### L 100.0100, L500.2500 ####[facility] [address] [place], [address] MCHC (RBC) [Mass/Vol] 31.0 g/dL Low 32-36 [facility] Comment on above: Order Comment: 514-1 Performed By: #### L 100.0100, L500.2500 ####[facility] [address] [place], [address] MCV (RBC) [Entitic vol] 87.1 fL Normal 81-[address] [facility] Comment on above: Order Comment: 514-1 Performed By: #### L 100.0100, L500.2500 ####[facility] [address] [place], [address] Monocytes/100 WBC (Bld) 9.3 % Normal 0-[address] [facility] Comment on above: Order Comment: 514-1 Performed By: #### L 100.0100, L500.2500 ####[facility] [address] [place], [address] Neutrophils/100 WBC (Bld) 65.3 % Normal 47-[address] [facility] Comment on above: Order Comment: 514-1 Performed By: #### L 100.0100, L500.2500 ####[facility] [address] [place], [address] Nucleated RBC (Bld) [#/Vol] 0 10*3/uL Normal 0-[address] [facility] Comment on above: Order Comment: 514-1 Performed By: #### L 100.0100, L500.2500 ####[facility] [address] [place], [address] Platelet mean volume (Bld) [Entitic vol] 9.3 fL Normal 6.2-12.[address] [facility] Comment on above: Order Comment: 514-1 Performed By: #### L 100.0100, L500.2500 ####[facility] [address] [place], [address] Platelets (Bld) [#/Vol] 195 10*3/uL Normal 150-[address] [facility] Comment on above: Order Comment: 514-1 Performed By: #### L 100.0100, L500.2500 ####[facility] [address] [place], [address] RBC (Bld) [#/Vol] 3.11 10*6/uL Low 4.2-5.4 [facility] Comment on above: Order Comment: 514-1 Performed By: #### L 100.0100, L500.2500 ####[facility] [address] [place], [address] RDW SD 54.7 fl High 35.1-43.[address] [facility] Comment on above: Order Comment: 514-1 Performed By: #### L 100.0100, L500.2500 ####[facility] [address] [place], [address] WBC (Bld) [#/Vol] 7.9 10*3/uL Normal 4.4-11.0 [facility] Comment on above: Order Comment: 514-1 Performed By: #### L 100.0100, L500.2500 ####[facility] [address] [place], [address] CBC panel Auto (Bld)on 11-19 Erythrocyte distribution width (RBC) [Ratio] 17.2 % High 11.5 - 14.5 % [facility] Hematocrit (Bld) [Volume fraction] 26.5 % Low 36.0 - 46.0 % [facility] Hemoglobin (Bld) [Mass/Vol] 8.3 g/dL Low 12.0 - 16.0 g/dL [facility] Interpretation and review of laboratory results Abnormal [facility] MCH (RBC) [Entitic mass] 27.3 pg 26.0 - 34.0 pg [facility] MCHC (RBC) [Mass/Vol] 31.3 g/dL Low 32.0 - 36.0 g/dL [facility] MCV (RBC) [Entitic vol] 87 fL 80 - 100 fL [facility] Nucleated RBC/100 WBC (Bld) [Ratio] 0.0 % [facility] Platelets (Bld) [#/Vol] 180 10*3/uL [facility] RBC (Bld) [#/Vol] 3.04 10*6/uL Low [facility] WBC (Bld) [#/Vol] 7.5 10*3/uL [facility] Erythrocyte distribution width (RBC) [Ratio] 17.2 % High 11.5-14.5 [facility] Comment on above: Performed By: #### 1 9123-9 #### OMERO KNIGHT ([id number]) [facility] ([facility]) [address] [place] [address] Hematocrit (Bld) [Volume fraction] 26.5 % Low 36.0-46.0 [facility] Comment on above: Performed By: #### 1 9123-9 #### OMERO KNIGHT ([id number]) [facility] ([facility]) [address] [place] [address] Hemoglobin (Bld) [Mass/Vol] 8.3 g/dL Low 12.0-16.0 [facility] Comment on above: Performed By: #### 1 9123-9 #### OMERO KNIGHT ([id number]) [facility] ([facility]) [address] [place] [address] MCH (RBC) [Entitic mass] 27.3 pg Normal 26.0-34.0 [facility] Comment on above: Performed By: #### 1 9123-9 #### OMERO KNIGHT ([id number]) [facility] ([facility]) [address] [place] [address]357 MCHC (RBC) [Mass/Vol] 31.3 g/dL Low 32.0-36.0 [facility] Comment on above: Performed By: #### 1 9123-9 #### OMERO KNIGHT ([id number]) [facility] ([facility]) [address] [place] [address] MCV (RBC) [Entitic vol] 87 fL Normal 80-100 [facility] Comment on above: Performed By: #### 1 9123-9 #### OMERO KNIGHT ([id number]) [facility] ([facility]) [address] [place] [address]69 Nucleated RBC/100 WBC (Bld) [Ratio] 0.0 /100 WBCs Normal 0.0-0.0 [facility] Comment on above: Performed By: #### 1 9123-9 #### OMERO KNIGHT ([id number]) [facility] ([facility]) [address] [place] [address]651 Platelets (Bld) [#/Vol] 180 x10*3/uL Normal 150-450 [facility] Comment on above: Performed By: #### 1 9123-9 #### OMERO KNIGHT ([id number]) [facility] ([facility]) [address] [place] [address] 11888 RBC (Bld) [#/Vol] 3.04 x10*6/uL Low 4.00-5.20 [facility] Comment on above: Performed By: #### 1 9123-9 #### OMERO KNIGHT ([id number]) [facility] ([facility]) [address] [place] [address] WBC (Bld) [#/Vol] 7.5 x10*3/uL Normal 4.4-11.3 [facility] Comment on above: Performed By: #### 1 9123-9 #### OMERO KNIGHT ([id number]) [facility] ([facility]) [address] [place] [address] 70764 Glucose Test strip manual (B ld) [Mass/Vol]on 11-20-2023 Glucose [Mass/Vol] 118 mg/dL High 74 - 99 mg/dL [facility] Interpretation and review of laboratory results Abnormal [facility] Glucose [Mass/Vol] 118 mg/dL High 74-99 [facility] Comment on above: Performed By: #### 1 9123-9 #### OMERO KNIGHT ([id number]) [facility] ([facility]) [address] [place] [address] Glucose [Mass/Vol] 135 mg/dL High 74 - 99 mg/dL [facility] Interpretation and review of laboratory results Abnormal [facility] Glucose [Mass/Vol] 135 mg/dL High 74-99 [facility] Comment on above: Performed By: #### 1 9123-9 #### OMERO KNIGHT ([id number]) [facility] ([facility]) [address] [place] [id number] Magnesiumon 11-20-2023 Magnesium [Mass/Vol] 1.52 mg/dL Low 1.60 - 2.40 mg/dL [facility] Magnesium [Mass/Vol] 1.52 mg/dL Low 1.60-2.40 [facility] Comment on above: Performed By: #### 1 9123-9 #### OMERO KNIGHT ([id number]) [facility] ([facility]) [address] [place], [place] [id number] No Panel Informationon 11-19 Interpretation and review of laboratory results Abnormal [facility] Renal function 2000 panelon 11-20-2023 Albumin BCP dye [Mass/Vol] 2.5 g/dL Low 3.4 - 5.0 g/dL [facility] Anion gap [Moles/Vol] 13 mmol/L 10 - 2 0 mmol/L [facility] Calcium [Mass/Vol] 8.1 mg/dL Low 8.6 - 10. 6 mg/dL [facility] Chloride [Moles/Vol] 99 mmol/L 98 - 10 7 mmol/L [facility] CO2 [Moles/Vol] 29 mmol/L 21 - 32 mmol/L [facility] Creatinine [Mass/Vol] 0.60 mg/dL 0.50 - 1.05 mg/dL [facility] eGFR - PINF [facility] Glucose [Mass/Vol] 122 mg/dL High 74 - 99 mg/dL [facility] Phosphate [Mass/Vol] 2.9 mg/dL 2.5 - 4 .9 mg/dL [facility] Potassium [Moles/Vol] 3.7 mmol/L 3.5 - 5.3 mmol/L [facility] Sodium [Moles/Vol] 137 mmol/L 136 - 145 mmol/L [facility] Urea nitrogen [Mass/Vol] 12 mg/dL 6 - 23 mg/dL [facility] Albumin BCP dye [Mass/Vol] 2.5 g/dL Low 3.4-5.0 [facility] Comment on above: Performed By: #### 1 9123-9 #### OMERO KNIGHT ([id number]) [facility] ([facility]) [address] [place] [address] 16757 Anion gap [Moles/Vol] 13 mmol/L Normal 10-20 [facility] Comment on above: Performed By: #### 1 9123-9 #### OMERO KNIGHT ([id number]) [facility] ([facility]) [address] [place] [address] 94475 Calcium [Mass/Vol] 8.1 mg/dL Low 8.6-10.6 [facility] Comment on above: Performed By: #### 1 9123-9 #### OMERO KNIGHT ([id number]) [facility] ([facility]) [address] [place] [address] 58427 Chloride [Moles/Vol] 99 mmol/L Normal 98-107 [facility] Comment on above: Performed By: #### 1 9123-9 #### OMERO KNIGHT ([id number]) [facility] ([facility]) [address] [place] [address] 92489 CO2 [Moles/Vol] 29 mmol/L Normal 21-32 [facility] Comment on above: Performed By: #### 1 9123-9 #### OMERO KNIGHT ([id number]) [facility] ([facility]) [address] [place] [address] Creatinine [Mass/Vol] 0.60 mg/dL Normal 0.50-1.05 [facility] Comment on above: Performed By: #### 1 9123-9 #### OMERO KNIGHT ([id number]) [facility] ([facility]) [address] [place] [address] 72849 GFR/1.73 sq M.predicted MDRD (S/P/Bld) [Vol rate/Area] mL/min/{1.73_m2} Normal >60 [facility] Comment on above: Result Comment: Calc ulations of estimated GFR are performed using the 2020 CKD-EPI Study Refit equation without the race variable for the IDMS-Traceable creatinine methods. https://jasn.asnjournals.org/content/early//ASN.43967 53065 Performed By: #### 1 9123-9 #### OMERO KNIGHT ([id number]) [facility] ([facility]) [address] [place] [address] 72558 Glucose [Mass/Vol] 122 mg/dL High 74-99 [facility] Comment on above: Performed By: #### 1 9123-9 #### OMERO KNIGHT ([id number]) [facility] ([facility]) [address] [place] [address] 26710 Phosphate [Mass/Vol] 2.9 mg/dL Normal 2.5-4.9 [facility] Comment on above: Result Comment: The performance characteristics of phosphorus testing in heparinized plasma have been validated by the individual laboratory site where testing is performed. Testing on heparinized plasma is not approved by the FDA; however, such approval is not necessary. Performed By: #### 1 9123-9 #### OMERO KNIGHT ([id number]) [facility] ([facility]) [address] [place] [address]991 Potassium [Moles/Vol] 3.7 mmol/L Normal 3.5-5.3 [facility] Comment on above: Performed By: #### 1 9123-9 #### OMERO KNIGHT ([id number]) [facility] ([facility]) [address] [place] [address] Sodium [Moles/Vol] 137 mmol/L Normal 136-145 [facility] Comment on above: Performed By: #### 1 9123-9 #### OMERO KNIGHT ([id number]) [facility] ([facility]) [facility] [place] [address] Urea nitrogen [Mass/Vol] 12 mg/dL Normal 6-23 [facility] Comment on above: Performed By: #### 1 9123-9 #### OMERO KNIGHT ([id number]) [facility] ([facility]) [address] [place] [address] 84082 Vancomycinon 11-20-2023 Vancomycin [Mass/Vol] 15.0 ug/mL 5.0 - 20.0 ug/mL [facility] Vancomycin [Mass/Vol] 15.0 ug/mL Normal 5.0-20.0 [facility] Comment on above: Order Comment: Vanco mycin [...] By: #### 1 9123-9 #### OMERO KNIGHT ([id number]) [facility] ([facility]) [address] [place] [address] 92832 Vancomycin [Mass/Vol]on 11-07 Interpretation and review of laboratory results Normal [facility] 25-hydroxyvitamin D3 [Mass/V ol]on 11-19-2023 [facility] CBC W Auto Differential pane l (Bld)on 11-19-2023 Basophils (Bld) [#/Vol] 0.03 10*3/uL [facility] Basophils/100 WBC (Bld) 0.4 % 0.0 - 2.0 % [facility] Eosinophils (Bld) [#/Vol] 0.20 10*3/uL [facility] Eosinophils/100 WBC (Bld) 2.5 % 0.0 - 6.0 % [facility] Erythrocyte distribution width (RBC) [Ratio] 17.1 % High 11.5 - 14.5 % [facility] Hematocrit (Bld) [Volume fraction] 27.2 % Low 36.0 - 46.0 % [facility] Hemoglobin (Bld) [Mass/Vol] 8.5 g/dL Low 12.0 - 16.0 g/dL [facility] Immature granulocytes (Bld) [#/Vol] 0.04 10*3/uL [facility] Immature granulocytes/100 WBC (Bld) 0.5 % 0.0 - 0.9 % [facility] Interpretation and review of laboratory results Abnormal [facility] Lymphocytes (Bld) [#/Vol] 2.39 10*3/uL [facility] Lymphocytes/100 WBC (Bld) 29.8 % 13.0 - 44.0 % [facility] MCH (RBC) [Entitic mass] 27.4 pg 26.0 - 34.0 pg [facility] MCHC (RBC) [Mass/Vol] 31.3 g/dL Low 32.0 - 36.0 g/dL [facility] MCV (RBC) [Entitic vol] 88 fL 80 - 100 fL [facility] Monocytes (Bld) [#/Vol] 0.64 10*3/uL [facility] Monocytes/100 WBC (Bld) 8.0 % 2.0 - 10.0 % [facility] Neutrophils (Bld) [#/Vol] 4.73 10*3/uL [facility] Neutrophils/100 WBC (Bld) 58.8 % 40.0 - 80.0 % [facility] Nucleated RBC/100 WBC (Bld) [Ratio] 0.0 % [facility] Platelets (Bld) [#/Vol] 178 10*3/uL [facility] RBC (Bld) [#/Vol] 3.10 10*6/uL Low [facility] WBC (Bld) [#/Vol] 8.0 10*3/uL [facility] Basophils (Bld) [#/Vol] 0.03 x10*3/uL Normal 0.00-0.10 [facility] Comment on above: Performed By: #### 1 9123-9 #### OMERO KNIGHT ([id number]) [facility] ([facility]) [address] [place] [address] 88975 Basophils/100 WBC (Bld) 0.4 % Normal 0.0-2.0 [facility] Comment on above: Performed By: #### 1 9123-9 #### OMERO KNIGHT (35881) [facility] ([facility]) [address] [place] [address] 03961 Eosinophils (Bld) [#/Vol] 0.20 x10*3/uL Normal 0.00-0.40 [facility] Comment on above: Performed By: #### 1 9123-9 #### OMERO KNIGHT (47062) [facility] ([facility]) [address] [place] [address] 83956 Eosinophils/100 WBC (Bld) 2.5 % Normal 0.0-6.0 [facility] Comment on above: Performed By: #### 1 9123-9 #### OMERO KNIGHT ([id number]) [facility] ([facility]) [address] [place] [address] 19282 Erythrocyte distribution width (RBC) [Ratio] 17.1 % High 11.5-14.5 [facility] Comment on above: Performed By: #### 1 9123-9 #### OMERO KNIGHT ([id number]) [facility] ([facility]) [address] [place] [address] 42206 Hematocrit (Bld) [Volume fraction] 27.2 % Low 36.0-46.0 [facility] Comment on above: Performed By: #### 1 9123-9 #### OMERO KNIGHT ([id number]) [facility] ([facility]) [address] [place] [address] Hemoglobin (Bld) [Mass/Vol] 8.5 g/dL Low 12.0-16.0 [facility] Comment on above: Performed By: #### 1 9123-9 #### OMERO KNIGHT (67805) [facility] ([facility]) [address] [place] [address] 31533 Immature granulocytes (Bld) [#/Vol] 0.04 x10*3/uL Normal 0.00-0.50 [facility] Comment on above: Performed By: #### 1 9123-9 #### OMERO KNIGHT ([id number]) [facility] ([facility]) [address] [place] [address] 34720 Immature granulocytes/100 WBC (Bld) 0.5 % Normal 0.0-0.9 [facility] Comment on above: Result Comment: Martina ture Granulocyte Count (IG) includes promyelocytes, myelocytes and metamyelocytes but does not include bands. Percent differential counts (%) should be interpreted in the context of the absolute cell counts (cells/UL). Performed By: #### 1 9123-9 #### OMERO KNIGHT ([id number]) [facility] ([facility]) [address] [place] [address] 43638 Lymphocytes (Bld) [#/Vol] 2.39 x10*3/uL Normal 0.80-3.00 [facility] Comment on above: Performed By: #### 1 9123-9 #### OMERO KNIGHT (15859) [facility] ([facility]) [address] [place] [address] 99989 Lymphocytes/100 WBC (Bld) 29.8 % Normal 13.0-44.0 [facility] Comment on above: Performed By: #### 1 9123-9 #### OMERO KNIGHT ([id number]) [facility] ([facility]) [address] [place] [address] 19042 MCH (RBC) [Entitic mass] 27.4 pg Normal 26.0-34.0 [facility] Comment on above: Performed By: #### 1 9123-9 #### OMERO KNIGHT ([id number]) [facility] ([facility]) [address] [place] [address] 34362 MCHC (RBC) [Mass/Vol] 31.3 g/dL Low 32.0-36.0 [facility] Comment on above: Performed By: #### 1 9123-9 #### OMERO KNIGHT ([id number]) [facility] ([facility]) [address] [place] [address] 55406 MCV (RBC) [Entitic vol] 88 fL Normal 80-100 [facility] Comment on above: Performed By: #### 1 9123-9 #### OMERO KNIGHT ([id number]) [facility] ([facility]) [address] [place] [address] 69511 Monocytes (Bld) [#/Vol] 0.64 x10*3/uL Normal 0.05-0.80 [facility] Comment on above: Performed By: #### 1 9123-9 #### OEMRO KNIGHT ([id number]) [facility] ([facility]) [address] [place] [address] 96000 Monocytes/100 WBC (Bld) 8.0 % Normal 2.0-10.0 [facility] Comment on above: Performed By: #### 1 9123-9 #### OMERO KNIGHT ([id number]) [facility] ([facility]) [address] [place] [address] 30436 Neutrophils (Bld) [#/Vol] 4.73 x10*3/uL Normal 1.60-5.50 [facility] Comment on above: Result Comment: Perc ent differential counts (%) should be interpreted in the context of the absolute cell counts (cells/uL). Performed By: #### 1 9123-9 #### OMERO KNIGHT ([id number]) [facility] ([facility]) [address] [place] [address] 80406 Neutrophils/100 WBC (Bld) 58.8 % Normal 40.0-80.0 [facility] Comment on above: Performed By: #### 1 9123-9 #### OMERO KNIGHT (35265) [facility] ([facility]) [address] [place] [address] 42100 Nucleated RBC/100 WBC (Bld) [Ratio] 0.0 /100 WBCs Normal 0.0-0.0 [facility] Comment on above: Performed By: #### 1 9123-9 #### OMERO KNIGHT ([id number]) [facility] ([facility]) [address] [place] [address] 17088 Platelets (Bld) [#/Vol] 178 x10*3/uL Normal 150-450 [facility] Comment on above: Performed By: #### 1 9123-9 #### OMERO KNIGHT ([id number]) [facility] ([facility]) [address] [place] [address] 92868 RBC (Bld) [#/Vol] 3.10 x10*6/uL Low 4.00-5.20 [facility] Comment on above: Performed By: #### 1 9123-9 #### OMERO KNIGHT (58410) [facility] ([facility]) [address] [place] [address] 33997 WBC (Bld) [#/Vol] 8.0 x10*3/uL Normal 4.4-11.3 [facility] Comment on above: Performed By: #### 1 9123-9 #### OMERO KNIGHT ([id number]) [facility] ([facility]) [address] [place] [address] 20487 Calcidiolon 11-19-2023 25-hydroxyvitamin D3 [Mass/Vol] 51 ng/mL Normal 30-100 [facility] Comment on above: Order Comment: Defic iency: < 20 ng/mlInsufficiency: 20-29 ng/mlSufficiency: 30-100 ng/mlThis assay accurately quantifies the sum of Vitamin D3, 25-Hydroxy and Vitamin D2,25-Hydroxy. Performed By: #### 1 9123-9 #### OMERO KNIGHT ([id number]) [facility] ([facility]) [address] [place] [address] 82472 Cobalaminson 11-19-2023 Cobalamin (Vitamin B12) [Mass/Vol] 374 pg/mL Normal 211-911 [facility] Comment on above: Performed By: #### 1 9123-9 #### OMERO KNIGHT ([id number]) [facility] ([facility]) [address] [place] [address] 90951 Glucose Test strip manual (B ld) [Mass/Vol]on 11-19-2023 Glucose [Mass/Vol] 170 mg/dL High 74 - 99 mg/dL [facility] Interpretation and review of laboratory results Abnormal [facility] Glucose [Mass/Vol] 170 mg/dL High 74-99 [facility] Comment on above: Performed By: #### 1 9123-9 #### OMERO KNIGHT ([id number]) [facility] ([facility]) [address] [place] [id number] Glucose [Mass/Vol] 189 mg/dL High 74 - 99 mg/dL [facility] Interpretation and review of laboratory results Abnormal [facility] Glucose [Mass/Vol] 189 mg/dL High 74-99 [facility] Comment on above: Performed By: #### 1 9123-9 #### OMERO KNIGHT ([id number]) [facility] ([facility]) [address] [place] [id number] Glucose [Mass/Vol] 157 mg/dL High 74 - 99 mg/dL [facility] Interpretation and review of laboratory results Abnormal [facility] Glucose [Mass/Vol] 157 mg/dL High 74-99 [facility] Comment on above: Performed By: #### 1 9123-9 #### OMERO KNIGHT ([id number]) [facility] ([facility]) [address] [place] [address] 98468 Glucose [Mass/Vol] 124 mg/dL High 74 - 99 mg/dL [facility] Interpretation and review of laboratory results Abnormal [facility] Glucose [Mass/Vol] 124 mg/dL High 74-99 [facility] Comment on above: Performed By: #### 1 9123-9 #### OMERO KNIGHT ([id number]) [facility] ([facility]) [address] [place] [address], [place] [address] Magnesiumon 11-19-2023 Magnesium [Mass/Vol] 1.46 mg/dL Low 1.60 - 2.40 mg/dL [facility] Magnesium [Mass/Vol] 1.46 mg/dL Low 1.60-2.40 [facility] Comment on above: Performed By: #### 1 9123-9 #### JAMIL EUGENE ([id number]) [facility] ([facility]) [facility] [place] [address] No Panel Informationon 11-18 Interpretation and review of laboratory results Normal [facility] Interpretation and review of laboratory results Abnormal [facility] Renal function 2000 panelon 11-19-2023 Albumin BCP dye [Mass/Vol] 2.4 g/dL Low 3.4 - 5.0 g/dL [facility] Anion gap [Moles/Vol] 11 mmol/L 10 - 2 0 mmol/L [facility] Calcium [Mass/Vol] 8.0 mg/dL Low 8.6 - 10. 6 mg/dL [facility] Chloride [Moles/Vol] 100 mmol/L 98 - 10 7 mmol/L [facility] CO2 [Moles/Vol] 31 mmol/L 21 - 32 mmol/L [facility] Creatinine [Mass/Vol] 0.61 mg/dL 0.50 - 1.05 mg/dL [facility] eGFR - PINF [facility] Glucose [Mass/Vol] 122 mg/dL High 74 - 99 mg/dL [facility] Phosphate [Mass/Vol] 2.8 mg/dL 2.5 - 4 .9 mg/dL [facility] Potassium [Moles/Vol] 3.8 mmol/L 3.5 - 5.3 mmol/L [facility] Sodium [Moles/Vol] 138 mmol/L 136 - 145 mmol/L [facility] Urea nitrogen [Mass/Vol] 14 mg/dL 6 - 23 mg/dL [facility] Albumin BCP dye [Mass/Vol] 2.4 g/dL Low 3.4-5.0 [facility] Comment on above: Performed By: #### 1 9123-9 #### OMERO KNIGHT ([id number]) [facility] ([facility]) [facility] [place] [address] Anion gap [Moles/Vol] 11 mmol/L Normal 10-20 [facility] Comment on above: Performed By: #### 1 9123-9 #### OMERO KNIGHT ([id number]) [facility] ([facility]) [address] [place] [address] 61095 Calcium [Mass/Vol] 8.0 mg/dL Low 8.6-10.6 [facility] Comment on above: Performed By: #### 1 9123-9 #### OMERO KNIGHT ([id number]) [facility] ([facility]) [address] [place] [address] 87182 Chloride [Moles/Vol] 100 mmol/L Normal 98-107 [facility] Comment on above: Performed By: #### 1 9123-9 #### OMERO KNIGHT ([id number]) [facility] ([facility]) [address] [place] [address] 22252 CO2 [Moles/Vol] 31 mmol/L Normal 21-32 [facility] Comment on above: Performed By: #### 1 9123-9 #### OMERO KNIGHT ([id number]) [facility] ([facility]) [facility] [place] [address] Creatinine [Mass/Vol] 0.61 mg/dL Normal 0.50-1.05 [facility] Comment on above: Performed By: #### 1 9123-9 #### OMERO KNIGHT ([id number]) [facility] ([facility]) [address] [place] [address] 09737 GFR/1.73 sq M.predicted MDRD (S/P/Bld) [Vol rate/Area] mL/min/{1.73_m2} Normal >60 [facility] Comment on above: Result Comment: Calc ulations of estimated GFR are performed using the 2020 CKD-EPI Study Refit equation without the race variable for the IDMS-Traceable creatinine methods. https://jasn.asnjournals.org/content/early/ASN.73640 36931 Performed By: #### 1 9123-9 #### OMERO KNIGHT ([id number]) [facility] ([facility]) [address] [place] [address] 55705 Glucose [Mass/Vol] 122 mg/dL High 74-99 [facility] Comment on above: Performed By: #### 1 9123-9 #### OMERO KNIGHT ([id number]) [facility] ([facility]) [address] [place] [address] 82199 Phosphate [Mass/Vol] 2.8 mg/dL Normal 2.5-4.9 [facility] Comment on above: Result Comment: The performance characteristics of phosphorus testing in heparinized plasma have been validated by the individual laboratory site where testing is performed. Testing on heparinized plasma is not approved by the FDA; however, such approval is not necessary. Performed By: #### 1 9123-9 #### OMERO KNIGHT ([id number]) [facility] ([facility]) [address] [place] [address] 62829 Potassium [Moles/Vol] 3.8 mmol/L Normal 3.5-5.3 [facility] Comment on above: Performed By: #### 1 9123-9 #### OMERO KNIGHT ([id number]) [facility] ([facility]) [address] [place] [address] 90695 Sodium [Moles/Vol] 138 mmol/L Normal 136-145 [facility] Comment on above: Performed By: #### 1 9123-9 #### OMERO KNIGHT ([id number]) [facility] ([facility]) [address] [place] [address] 03900 Urea nitrogen [Mass/Vol] 14 mg/dL Normal 6-23 [facility] Comment on above: Performed By: #### 1 9123-9 #### OMERO KNIGHT ([id number]) [facility] ([facility]) [address] [place] [address] 34483 TSH WITH REFLEX TO FREE T4 I F ABNORMALon 11-19-2023 TSH Qn 0.45 m[IU]/L Normal 0.44-3.98 [facility] Comment on above: Order Comment: TSH t esting is performed using different testing methodology at [facility] than at other [facility]. Direct result comparisons should only be made within the same method. Performed By: #### 1 9123-9 #### OMERO KNIGHT ([id number]) [facility] ([facility]) [facility] [place] [address] TSH with reflex to Free T4 i f abnormalon 11-19-2023 Interpretation and review of laboratory results Normal [facility] TSH Qn 0.45 m[IU]/L [facility] Vancomycinon 11-19-2023 Vancomycin [Mass/Vol] 16.0 ug/mL 5.0 - 20.0 ug/mL [facility] Vancomycin [Mass/Vol] 16.0 ug/mL Normal 5.0-20.0 [facility] Comment on above: Order Comment: [...] By: #### 1 9123-9 #### OMERO KNIGHT ([id number]) [facility] ([facility]) [facility] [place] [id number] Vancomycin [Mass/Vol]on 11-07 Interpretation and review of laboratory results Normal [facility] Vitamin B12on 11-19-2023 Cobalamin (Vitamin B12) [Mass/Vol] 374 pg/mL 211 - 911 pg/mL [facility] Vitamin D 25-Hydroxy,Total ( for eval of Vitamin D levels)on 11-19-2023 25-hydroxyvitamin D3 [Mass/Vol] 51 ng/mL 30 - 100 ng/mL [facility] CBC W Auto Differential pane l (Bld)on 11-18-2023 Basophils (Bld) [#/Vol] 0.03 10*3/uL [facility] Basophils/100 WBC (Bld) 0.3 % 0.0 - 2.0 % [facility] Eosinophils (Bld) [#/Vol] 0.22 10*3/uL [facility] Eosinophils/100 WBC (Bld) 2.5 % 0.0 - 6.0 % [facility] Erythrocyte distribution width (RBC) [Ratio] 16.5 % High 11.5 - 14.5 % [facility] Hematocrit (Bld) [Volume fraction] 28.0 % Low 36.0 - 46.0 % [facility] Hemoglobin (Bld) [Mass/Vol] 8.7 g/dL Low 12.0 - 16.0 g/dL [facility] Immature granulocytes (Bld) [#/Vol] 0.04 10*3/uL [facility] Immature granulocytes/100 WBC (Bld) 0.5 % 0.0 - 0.9 % [facility] Interpretation and review of laboratory results Abnormal [facility] Lymphocytes (Bld) [#/Vol] 3.01 10*3/uL High [facility] Lymphocytes/100 WBC (Bld) 34.3 % 13.0 - 44.0 % [facility] MCH (RBC) [Entitic mass] 26.9 pg 26.0 - 34.0 pg [facility] MCHC (RBC) [Mass/Vol] 31.1 g/dL Low 32.0 - 36.0 g/dL [facility] MCV (RBC) [Entitic vol] 87 fL 80 - 100 fL [facility] Monocytes (Bld) [#/Vol] 0.77 10*3/uL [facility] Monocytes/100 WBC (Bld) 8.8 % 2.0 - 10.0 % [facility] Neutrophils (Bld) [#/Vol] 4.70 10*3/uL [facility] Neutrophils/100 WBC (Bld) 53.6 % 40.0 - 80.0 % [facility] Nucleated RBC/100 WBC (Bld) [Ratio] 0.0 % [facility] Platelets (Bld) [#/Vol] 186 10*3/uL [facility] RBC (Bld) [#/Vol] 3.23 10*6/uL Low [facility] WBC (Bld) [#/Vol] 8.8 10*3/uL [facility] Basophils (Bld) [#/Vol] 0.03 x10*3/uL Normal 0.00-0.10 [facility] Comment on above: Performed By: #### 5 0190-8 #### OMERO KNIGHT ([id number]) [facility] ([facility]) [address] [place] [address] 46366 Basophils/100 WBC (Bld) 0.3 % Normal 0.0-2.0 [facility] Comment on above: Performed By: #### 5 0190-8 #### OMERO KNIGHT ([id number]) [facility] ([facility]) [address] [place] [address] 49154 Eosinophils (Bld) [#/Vol] 0.22 x10*3/uL Normal 0.00-0.40 [facility] Comment on above: Performed By: #### 5 0190-8 #### OMERO KNIGHT ([id number]) [facility] ([facility]) [address] [place] [address] 95241 Eosinophils/100 WBC (Bld) 2.5 % Normal 0.0-6.0 [facility] Comment on above: Performed By: #### 5 0190-8 #### OMERO KNIGHT ([id number]) [facility] ([facility]) [address] [place] [address] 52385 Erythrocyte distribution width (RBC) [Ratio] 16.5 % High 11.5-14.5 [facility] Comment on above: Performed By: #### 5 0190-8 #### OMERO KNIGHT ([id number]) [facility] ([facility]) [address] [place] [address] 49333 Hematocrit (Bld) [Volume fraction] 28.0 % Low 36.0-46.0 [facility] Comment on above: Performed By: #### 5 0190-8 #### OMERO KNIGHT ([id number]) [facility] ([facility]) [address] [place] [address] 80228 Hemoglobin (Bld) [Mass/Vol] 8.7 g/dL Low 12.0-16.0 [facility] Comment on above: Performed By: #### 5 0190-8 #### OMERO KNIGHT ([id number]) [facility] ([facility]) [address] [place] [address] 70164 Immature granulocytes (Bld) [#/Vol] 0.04 x10*3/uL Normal 0.00-0.50 [facility] Comment on above: Performed By: #### 5 0190-8 #### OMERO KNIGHT ([id number]) [facility] ([facility]) [address] [place] [address] 70678 Immature granulocytes/100 WBC (Bld) 0.5 % Normal 0.0-0.9 [facility] Comment on above: Result Comment: Martina ture Granulocyte Count (IG) includes promyelocytes, myelocytes and metamyelocytes but does not include bands. Percent differential counts (%) should be interpreted in the context of the absolute cell counts (cells/UL). Performed By: #### 5 0190-8 #### OMERO KNIGHT ([id number]) [facility] ([facility]) [address] [place] [address] 05169 Lymphocytes (Bld) [#/Vol] 3.01 x10*3/uL High 0.80-3.00 [facility] Comment on above: Performed By: #### 5 0190-8 #### OMERO KNIGHT ([id number]) [facility] ([facility]) [address] [place] [address] 32093 Lymphocytes/100 WBC (Bld) 34.3 % Normal 13.0-44.0 [facility] Comment on above: Performed By: #### 5 0190-8 #### OMERO KNIGHT ([id number]) [facility] ([facility]) [address] [place] [address] 03954 MCH (RBC) [Entitic mass] 26.9 pg Normal 26.0-34.0 [facility] Comment on above: Performed By: #### 5 0190-8 #### OMERO KNIGHT ([id number]) [facility] ([facility]) [address] [place] [address] 48334 MCHC (RBC) [Mass/Vol] 31.1 g/dL Low 32.0-36.0 [facility] Comment on above: Performed By: #### 5 0190-8 #### OMERO KNIGHT ([id number]) [facility] ([facility]) [address] [place] [address] 02294 MCV (RBC) [Entitic vol] 87 fL Normal 80-100 [facility] Comment on above: Performed By: #### 5 0190-8 #### OMERO KNIGHT ([id number]) [facility] ([facility]) [address] [place] [address] 41230 Monocytes (Bld) [#/Vol] 0.77 x10*3/uL Normal 0.05-0.80 [facility] Comment on above: Performed By: #### 5 0190-8 #### OMERO KNIGHT ([id number]) [facility] ([facility]) [address] [place] [address] 58106 Monocytes/100 WBC (Bld) 8.8 % Normal 2.0-10.0 [facility] Comment on above: Performed By: #### 5 0190-8 #### OMERO KNIGHT ([id number]) [facility] ([facility]) [address] [place] [address] 80112 Neutrophils (Bld) [#/Vol] 4.70 x10*3/uL Normal 1.60-5.50 [facility] Comment on above: Result Comment: Perc ent differential counts (%) should be interpreted in the context of the absolute cell counts (cells/uL). Performed By: #### 5 0190-8 #### OMERO KNIGHT ([id number]) [facility] ([facility]) [address] [place] [address] 47414 Neutrophils/100 WBC (Bld) 53.6 % Normal 40.0-80.0 [facility] Comment on above: Performed By: #### 5 0190-8 #### OMERO KNIGHT ([id number]) [facility] ([facility]) [address] [place] [address] 88514 Nucleated RBC/100 WBC (Bld) [Ratio] 0.0 /100 WBCs Normal 0.0-0.0 [facility] Comment on above: Performed By: #### 5 0190-8 #### OMERO KNIGHT ([id number]) [facility] ([facility]) [address] [place] [address] 23341 Platelets (Bld) [#/Vol] 186 x10*3/uL Normal 150-450 [facility] Comment on above: Performed By: #### 5 0190-8 #### OMERO KNIGHT ([id number]) [facility] ([facility]) [address] [place] [address] 18735 RBC (Bld) [#/Vol] 3.23 x10*6/uL Low 4.00-5.20 [facility] Comment on above: Performed By: #### 5 0190-8 #### OMERO KNIGHT ([id number]) [facility] ([facility]) [address] [place] [address] 89149 WBC (Bld) [#/Vol] 8.8 x10*3/uL Normal 4.4-11.3 [facility] Comment on above: Performed By: #### 5 0190-8 #### OMERO KNIGHT ([id number]) [facility] ([facility]) [address] [place] [address] 38627 Glucose Test strip manual (B ld) [Mass/Vol]on 11-18-2023 Glucose [Mass/Vol] 156 mg/dL High 74 - 99 mg/dL [facility] Interpretation and review of laboratory results Abnormal [facility] Glucose [Mass/Vol] 156 mg/dL High 74-99 [facility] Comment on above: Performed By: #### 1 9123-9 #### OMREO KNIGHT ([id number]) [facility] ([facility]) [address] [place] [address] 81110 Glucose [Mass/Vol] 180 mg/dL High 74 - 99 mg/dL [facility] Interpretation and review of laboratory results Abnormal [facility] Glucose [Mass/Vol] 180 mg/dL High 74-99 [facility] Comment on above: Performed By: #### 1 9123-9 #### OMERO KNIGHT ([id number]) [facility] ([facility]) [address] [place] [address] 92684 Glucose [Mass/Vol] 173 mg/dL High 74 - 99 mg/dL [facility] Interpretation and review of laboratory results Abnormal [facility] Glucose [Mass/Vol] 173 mg/dL High 74-99 [facility] Comment on above: Performed By: #### 1 9123-9 #### OMERO KNIGHT ([id number]) [facility] ([facility]) [address] [place] [address] 00339 Glucose [Mass/Vol] 130 mg/dL High 74 - 99 mg/dL [facility] Interpretation and review of laboratory results Abnormal [facility] Glucose [Mass/Vol] 130 mg/dL High 74-99 [facility] Comment on above: Performed By: #### 1 9123-9 #### OMERO KNIGHT ([id number]) [facility] ([facility]) [address] [place] [address] 04742 Magnesiumon 11-18-2023 Magnesium [Mass/Vol] 1.52 mg/dL Low 1.60 - 2.40 mg/dL [facility] Magnesium [Mass/Vol] 1.52 mg/dL Low 1.60-2.40 [facility] Comment on above: Performed By: #### 5 0190-8 #### OMERO KNIGHT ([id number]) [facility] ([facility]) [address] [place] [address] 22299 No Panel Informationon 11-17 Interpretation and review of laboratory results Abnormal [facility] Renal function 2000 panelon 08-11-2024 Albumin BCP dye [Mass/Vol] 2.5 g/dL Low 3.4 - 5.0 g/dL [facility] Anion gap [Moles/Vol] 13 mmol/L 10 - 2 0 mmol/L [facility] Calcium [Mass/Vol] 8.0 mg/dL Low 8.6 - 10. 6 mg/dL [facility] Chloride [Moles/Vol] 98 mmol/L 98 - 10 7 mmol/L [facility] CO2 [Moles/Vol] 30 mmol/L 21 - 32 mmol/L [facility] Creatinine [Mass/Vol] 0.66 mg/dL 0.50 - 1.05 mg/dL [facility] eGFR - PINF [facility] Glucose [Mass/Vol] 126 mg/dL High 74 - 99 mg/dL [facility] Phosphate [Mass/Vol] 2.6 mg/dL 2.5 - 4 .9 mg/dL [facility] Potassium [Moles/Vol] 3.9 mmol/L 3.5 - 5.3 mmol/L [facility] Sodium [Moles/Vol] 137 mmol/L 136 - 145 mmol/L [facility] Urea nitrogen [Mass/Vol] 14 mg/dL 6 - 23 mg/dL [facility] Albumin BCP dye [Mass/Vol] 2.5 g/dL Low 3.4-5.0 [facility] Comment on above: Performed By: #### 5 0190-8 #### OMERO KNIGHT ([id number]) [facility] ([facility]) [address] [place] [address] Anion gap [Moles/Vol] 13 mmol/L Normal 10-20 [facility] Comment on above: Performed By: #### 5 0190-8 #### OMERO KNIGHT ([id number]) [facility] ([facility]) [address] [place] [address] Calcium [Mass/Vol] 8.0 mg/dL Low 8.6-10.6 [facility] Comment on above: Performed By: #### 5 0190-8 #### OMERO KNIGHT ([id number]) [facility] ([facility]) [address] [place] [address] Chloride [Moles/Vol] 98 mmol/L Normal 98-107 [facility] Comment on above: Performed By: #### 5 0190-8 #### OMERO KNIGHT ([id number]) [facility] ([facility]) [facility] [place] [address] CO2 [Moles/Vol] 30 mmol/L Normal 21-32 [facility] Comment on above: Performed By: #### 5 0190-8 #### OMERO KNIGHT ([id number]) [facility] ([facility]) [address] [place] [address] 56975 Creatinine [Mass/Vol] 0.66 mg/dL Normal 0.50-1.05 [facility] Comment on above: Performed By: #### 5 0190-8 #### OMERO KNIGHT ([id number]) [facility] ([facility]) [address] [place] [address] 17819 GFR/1.73 sq M.predicted MDRD (S/P/Bld) [Vol rate/Area] mL/min/{1.73_m2} Normal >60 [facility] Comment on above: Result Comment: Calc ulations of estimated GFR are performed using the 2020 CKD-EPI Study Refit equation without the race variable for the IDMS-Traceable creatinine methods. https://jasn.asnjournals.org/content//ASN.22037 73473 Performed By: #### 5 0190-8 #### OMERO KNIGHT ([id number]) [facility] ([facility]) [address] [place] [address] 31023 Glucose [Mass/Vol] 126 mg/dL High 74-99 [facility] Comment on above: Performed By: #### 5 0190-8 #### OMERO KNIGHT ([id number]) [facility] ([facility]) [address] [place] [address] 89943 Phosphate [Mass/Vol] 2.6 mg/dL Normal 2.5-4.9 [facility] Comment on above: Result Comment: The performance characteristics of phosphorus testing in heparinized plasma have been validated by the individual laboratory site where testing is performed. Testing on heparinized plasma is not approved by the FDA; however, such approval is not necessary. Performed By: #### 5 0190-8 #### OMERO KNIGHT ([id number]) [facility] ([facility]) [address] [place], [place] [id number] Potassium [Moles/Vol] 3.9 mmol/L Normal 3.5-5.3 [facility] Comment on above: Performed By: #### 5 0190-8 #### OMERO KNIGHT ([id number]) [facility] ([facility]) [address] [place] [address] 28223 Sodium [Moles/Vol] 137 mmol/L Normal 136-145 [facility] Comment on above: Performed By: #### 5 0190-8 #### OMERO KNIGHT ([id number]) [facility] ([facility]) [address] [place] [address] 58838 Urea nitrogen [Mass/Vol] 14 mg/dL Normal 6-23 [facility] Comment on above: Performed By: #### 5 0190-8 #### OMERO KNIGHT ([id number]) [facility] ([facility]) [address] [place] [address] 06365 CBC W Auto Differential pane l (Bld)on 11-17-2023 Basophils (Bld) [#/Vol] 0.04 10*3/uL [facility] Basophils/100 WBC (Bld) 0.6 % 0.0 - 2.0 % [facility] Eosinophils (Bld) [#/Vol] 0.11 10*3/uL [facility] Eosinophils/100 WBC (Bld) 1.5 % 0.0 - 6.0 % [facility] Erythrocyte distribution width (RBC) [Ratio] 16.7 % High 11.5 - 14.5 % [facility] Hematocrit (Bld) [Volume fraction] 29.3 % Low 36.0 - 46.0 % [facility] Hemoglobin (Bld) [Mass/Vol] 9.1 g/dL Low 12.0 - 16.0 g/dL [facility] Immature granulocytes (Bld) [#/Vol] 0.09 10*3/uL [facility] Immature granulocytes/100 WBC (Bld) 1.2 % High 0.0 - 0.9 % [facility] [facility] Interpretation and review of laboratory results Abnormal [facility] Lymphocytes (Bld) [#/Vol] 2.57 10*3/uL [facility] Lymphocytes/100 WBC (Bld) 35.4 % 13.0 - 44.0 % [facility] MCH (RBC) [Entitic mass] 26.5 pg 26.0 - 34.0 pg [facility] MCHC (RBC) [Mass/Vol] 31.1 g/dL Low 32.0 - 36.0 g/dL [facility] MCV (RBC) [Entitic vol] 85 fL 80 - 100 fL [facility] Monocytes (Bld) [#/Vol] 0.81 10*3/uL High [facility] Monocytes/100 WBC (Bld) 11.2 % 2.0 - 10.0 % [facility] Neutrophils (Bld) [#/Vol] 3.64 10*3/uL [facility] Neutrophils/100 WBC (Bld) 50.1 % 40.0 - 80.0 % [facility] Nucleated RBC/100 WBC (Bld) [Ratio] 0.0 % [facility] Platelets (Bld) [#/Vol] 152 10*3/uL [facility] RBC (Bld) [#/Vol] 3.43 10*6/uL Low [facility] WBC (Bld) [#/Vol] 7.3 10*3/uL [facility] Basophils (Bld) [#/Vol] 0.04 x10*3/uL Normal 0.00-0.10 [facility] Comment on above: Performed By: #### 5 0190-8 #### OMERO KNIGHT ([id number]) [facility] ([facility]) [address] [place] [address] Basophils/100 WBC (Bld) 0.6 % Normal 0.0-2.0 [facility] Comment on above: Performed By: #### 5 0190-8 #### OMERO KNIGHT ([id number]) [facility] ([facility]) [address] [place] [address] 81413 Eosinophils (Bld) [#/Vol] 0.11 x10*3/uL Normal 0.00-0.40 [facility] Comment on above: Performed By: #### 0-8 #### OMERO KNIGHT ([id number]) [facility] ([facility]) [address] [place], [place] [address] Eosinophils/100 WBC (Bld) 1.5 % Normal 0.0-6.0 [facility] Comment on above: Performed By: #### 189-8 #### OMERO KNIGHT ([id number]) [facility] ([facility]) [address] [place] [address] Erythrocyte distribution width (RBC) [Ratio] 16.7 % High 11.5-14.5 [facility] Comment on above: Performed By: #### 189-8 #### OMERO KNIGHT ([id number]) [facility] ([facility]) [address] [place] [address] Hematocrit (Bld) [Volume fraction] 29.3 % Low 36.0-46.0 [facility] Comment on above: Performed By: #### 189-8 #### OMERO KNIGHT ([id number]) [facility] ([facility]) [address] [place], [place] [address] Hemoglobin (Bld) [Mass/Vol] 9.1 g/dL Low 12.0-16.0 [facility] Comment on above: Performed By: #### 0-8 #### OMERO KNIGHT ([id number]) [facility] ([facility]) [address] [place] [address] 35395 Immature granulocytes (Bld) [#/Vol] 0.09 x10*3/uL Normal 0.00-0.50 [facility] Comment on above: Performed By: #### 0-8 #### OMERO KNIGHT ([id number]) [facility] ([facility]) [address] [place] [address] 45088 Immature granulocytes/100 WBC (Bld) 1.2 % High 0.0-0.9 [facility] Comment on above: Result Comment: Martina ture Granulocyte Count (IG) includes promyelocytes, myelocytes and metamyelocytes but does not include bands. Percent differential counts (%) should be interpreted in the context of the absolute cell counts (cells/UL). Performed By: #### 5 0190-8 #### OMERO KNIGHT ([id number]) [facility] ([facility]) [address] [place] [address] Lymphocytes (Bld) [#/Vol] 2.57 x10*3/uL Normal 0.80-3.00 [facility] Comment on above: Performed By: #### 5 0190-8 #### OMERO KNIGHT ([id number]) [facility] ([facility]) [address] [place] [address] Lymphocytes/100 WBC (Bld) 35.4 % Normal 13.0-44.0 [facility] Comment on above: Performed By: #### 5 0190-8 #### OMERO KNIGHT ([id number]) [facility] ([facility]) [address] [place] [address] 31481 MCH (RBC) [Entitic mass] 26.5 pg Normal 26.0-34.0 [facility] Comment on above: Performed By: #### 5 0190-8 #### OMERO KNIGHT ([id number]) [facility] ([facility]) [address] [place] [address] MCHC (RBC) [Mass/Vol] 31.1 g/dL Low 32.0-36.0 [facility] Comment on above: Performed By: #### 5 0190-8 #### OMERO KNIGHT ([id number]) [facility] ([facility]) [address] [place], [place] [address] MCV (RBC) [Entitic vol] 85 fL Normal 80-100 [facility] Comment on above: Performed By: #### 5 0190-8 #### OMERO KNIGHT ([id number]) [facility] ([facility]) [address] [place] [address] 26230 Monocytes (Bld) [#/Vol] 0.81 x10*3/uL High 0.05-0.80 [facility] Comment on above: Performed By: #### 5 0190-8 #### OMERO KNIGHT ([id number]) [facility] ([facility]) [address] [place] [address] 67229 Monocytes/100 WBC (Bld) 11.2 % Normal 2.0-10.0 [facility] Comment on above: Performed By: #### 5 0-8 #### OMERO KNIGHT ([id number]) [facility] ([facility]) [address] [place] [address] 17260 Neutrophils (Bld) [#/Vol] 3.64 x10*3/uL Normal 1.60-5.50 [facility] Comment on above: Result Comment: Perc ent differential counts (%) should be interpreted in the context of the absolute cell counts (cells/uL). Performed By: #### 5 0190-8 #### OMERO KNIGHT ([id number]) [facility] ([facility]) [address] [place] [address] 57821 Neutrophils/100 WBC (Bld) 50.1 % Normal 40.0-80.0 [facility] Comment on above: Performed By: #### 5 0190-8 #### OMERO KNIGHT ([id number]) [facility] ([facility]) [address] [place] [address] 80592 Nucleated RBC/100 WBC (Bld) [Ratio] 0.0 /100 WBCs Normal 0.0-0.0 [facility] Comment on above: Performed By: #### 5 0190-8 #### OMERO KNIGHT ([id number]) [facility] ([facility]) [address] [place] [address] 25333 Platelets (Bld) [#/Vol] 152 x10*3/uL Normal 150-450 [facility] Comment on above: Performed By: #### 5 0190-8 #### OMERO KNIGHT ([id number]) [facility] ([facility]) [address] [place] [address] 68963 RBC (Bld) [#/Vol] 3.43 x10*6/uL Low 4.00-5.20 [facility] Comment on above: Performed By: #### 0-8 #### OMERO KNIGHT ([id number]) [facility] ([facility]) [address] [place] [address] 63485 WBC (Bld) [#/Vol] 7.3 x10*3/uL Normal 4.4-11.3 [facility] Comment on above: Performed By: #### 189-8 #### OMERO KNIGHT ([id number]) [facility] ([facility]) [address] [place] [address] 10120 Glucose Test strip manual (B ld) [Mass/Vol]on 11-17-2023 Glucose [Mass/Vol] 169 mg/dL High 74 - 99 mg/dL [facility] Interpretation and review of laboratory results Abnormal [facility] Glucose [Mass/Vol] 169 mg/dL High 74-99 [facility] Comment on above: Performed By: #### 0-8 #### OMERO KNIGHT ([id number]) [facility] ([facility]) [address] [place] [address] 13998 Glucose [Mass/Vol] 134 mg/dL High 74 - 99 mg/dL [facility] Interpretation and review of laboratory results Abnormal [facility] Glucose [Mass/Vol] 134 mg/dL High 74-99 [facility] Comment on above: Performed By: #### 5 0-8 #### OMERO KNIGHT ([id number]) [facility] ([facility]) [address] [place] [address] 70829 Glucose [Mass/Vol] 152 mg/dL High 74 - 99 mg/dL [facility] Interpretation and review of laboratory results Abnormal [facility] Glucose [Mass/Vol] 152 mg/dL High 74-99 [facility] Comment on above: Performed By: #### 0-8 #### OMERO KNIGHT ([id number]) [facility] ([facility]) [address] [place] [address] Glucose [Mass/Vol] 157 mg/dL High 74 - 99 mg/dL [facility] Interpretation and review of laboratory results Abnormal [facility] Glucose [Mass/Vol] 157 mg/dL High 74-99 [facility] Comment on above: Performed By: #### 5 0190-8 #### OMERO KNIGHT ([id number]) [facility] ([facility]) [address] [place] [id number] Magnesiumon 11-17-2023 Magnesium [Mass/Vol] 1.47 mg/dL Low 1.60 - 2.40 mg/dL [facility] Magnesium [Mass/Vol] 1.47 mg/dL Low 1.60-2.40 [facility] Comment on above: Performed By: #### 5 0190-8 #### OMERO KNIGHT ([id number]) [facility] ([facility]) [address] [place] [address] No Panel Informationon 11-16 Interpretation and review of laboratory results Abnormal [facility] Renal function 2000 panelon 11-17-2023 Albumin BCP dye [Mass/Vol] 2.4 g/dL Low 3.4 - 5.0 g/dL [facility] Anion gap [Moles/Vol] 11 mmol/L 10 - 2 0 mmol/L [facility] Calcium [Mass/Vol] 7.6 mg/dL Low 8.6 - 10. 6 mg/dL [facility] Chloride [Moles/Vol] 99 mmol/L 98 - 10 7 mmol/L [facility] CO2 [Moles/Vol] 31 mmol/L 21 - 32 mmol/L [facility] Creatinine [Mass/Vol] 0.63 mg/dL 0.50 - 1.05 mg/dL [facility] eGFR - PINF [facility] Glucose [Mass/Vol] 130 mg/dL High 74 - 99 mg/dL [facility] Phosphate [Mass/Vol] 2.9 mg/dL 2.5 - 4 .9 mg/dL [facility] Potassium [Moles/Vol] 4.0 mmol/L 3.5 - 5.3 mmol/L [facility] Sodium [Moles/Vol] 137 mmol/L 136 - 145 mmol/L [facility] Urea nitrogen [Mass/Vol] 14 mg/dL 6 - 23 mg/dL [facility] Albumin BCP dye [Mass/Vol] 2.4 g/dL Low 3.4-5.0 [facility] Comment on above: Performed By: #### 5 0190-8 #### OMERO KNIGHT ([id number]) [facility] ([facility]) [address] [place] [address] 90493 Anion gap [Moles/Vol] 11 mmol/L Normal 10-20 [facility] Comment on above: Performed By: #### 5 0-8 #### OMERO KNIGHT ([id number]) [facility] ([facility]) [address] [place] [address] 85866 Calcium [Mass/Vol] 7.6 mg/dL Low 8.6-10.6 [facility] Comment on above: Performed By: #### 5 0-8 #### OMERO KNIGHT ([id number]) [facility] ([facility]) [address] [place] [address] 02340 Chloride [Moles/Vol] 99 mmol/L Normal 98-107 [facility] Comment on above: Performed By: #### 5 0-8 #### OMERO KNIGHT ([id number]) [facility] ([facility]) [address] [place] [address] 02761 CO2 [Moles/Vol] 31 mmol/L Normal 21-32 [facility] Comment on above: Performed By: #### 5 0-8 #### OMERO KNIGHT ([id number]) [facility] ([facility]) [address] [place] [address] 59786 Creatinine [Mass/Vol] 0.63 mg/dL Normal 0.50-1.05 [facility] Comment on above: Performed By: #### 5 0-8 #### OMERO KNIGHT ([id number]) [facility] ([facility]) [address] [place] [address] GFR/1.73 sq M.predicted MDRD (S/P/Bld) [Vol rate/Area] mL/min/{1.73_m2} Normal >60 [facility] Comment on above: Result Comment: Calc ulations of estimated GFR are performed using the 2020 CKD-EPI Study Refit equation without the race variable for the IDMS-Traceable creatinine methods. https://jasn.asnjournals.org/content//ASN.03746 66909 Performed By: #### 5 0190-8 #### OMERO KNIGHT ([id number]) [facility] ([facility]) [address] [place] [address] 19359 Glucose [Mass/Vol] 130 mg/dL High 74-99 [facility] Comment on above: Performed By: #### 5 0190-8 #### OMERO KNIGHT ([id number]) [facility] ([facility]) [address] [place] [address] 04779 Phosphate [Mass/Vol] 2.9 mg/dL Normal 2.5-4.9 [facility] Comment on above: Result Comment: The performance characteristics of phosphorus testing in heparinized plasma have been validated by the individual laboratory site where testing is performed. Testing on heparinized plasma is not approved by the FDA; however, such approval is not necessary. Performed By: #### 5 0190-8 #### OMERO KNIGHT ([id number]) [facility] ([facility]) [address] [place] [address] 20214 Potassium [Moles/Vol] 4.0 mmol/L Normal 3.5-5.3 [facility] Comment on above: Performed By: #### 5 0190-8 #### OMERO KNIGHT ([id number]) [facility] ([facility]) [address] [place] [address] 94036 Sodium [Moles/Vol] 137 mmol/L Normal 136-145 [facility] Comment on above: Performed By: #### 5 0190-8 #### OMERO KNIGHT ([id number]) [facility] ([facility]) [address] [place] [address] Urea nitrogen [Mass/Vol] 14 mg/dL Normal 6-23 [facility] Comment on above: Performed By: #### 5 0190-8 #### JAMIL EUGENE ([id number]) [facility] ([facility]) [address] [place] [address] XR Chest Single viewon 11-16 UH MMODAL UH MMODAL [facility] Work Phone: [phone] XR Chest Single viewOrdered By: Pastor Barrientos on 11-17-2023 [facility] Work Phone: [phone] Bacteria identified Cx Nom ( Unsp spec)on 11-16-2023 Microscopic observation Gram stain Nom (Unsp spec) No polymorphonuclear leukocytes seen [facility] Work Phone: [phone] Microscopic observation Gram stain Nom (Unsp spec) No organisms seen [facility] Work Phone: [phone] [facility] Work Phone: [phone] Microscopic observation Gram stain Nom (Unsp spec) No polymorphonuclear leukocytes seen [facility] Work Phone: [phone] Microscopic observation Gram stain Nom (Unsp spec) No organisms seen [facility] Work Phone: [phone] [facility] Work Phone: [phone] Bedside PICC Imagingon 11-15 IMAGING CBC panel Auto (Bld)on 11-15 Erythrocyte distribution width (RBC) [Ratio] 16.5 % High 11.5 - 14.5 % [facility] Hematocrit (Bld) [Volume fraction] 29.4 % Low 36.0 - 46.0 % [facility] Hemoglobin (Bld) [Mass/Vol] 9.1 g/dL Low 12.0 - 16.0 g/dL [facility] Interpretation and review of laboratory results Abnormal [facility] MCH (RBC) [Entitic mass] 27.0 pg 26.0 - 34.0 pg [facility] MCHC (RBC) [Mass/Vol] 31.0 g/dL Low 32.0 - 36.0 g/dL [facility] MCV (RBC) [Entitic vol] 87 fL 80 - 100 fL [facility] Nucleated RBC/100 WBC (Bld) [Ratio] 0.0 % [facility] Platelets (Bld) [#/Vol] 192 10*3/uL [facility] RBC (Bld) [#/Vol] 3.37 10*6/uL Low [facility] WBC (Bld) [#/Vol] 9.6 10*3/uL [facility] Erythrocyte distribution width (RBC) [Ratio] 16.5 % High 11.5-14.5 [facility] Comment on above: Performed By: #### 2 276-4 #### OMERO KNIGHT ([id number]) [facility] ([facility]) [address] [place] [address] Hematocrit (Bld) [Volume fraction] 29.4 % Low 36.0-46.0 [facility] Comment on above: Performed By: #### 2 276-4 #### OMERO KNIGHT ([id number]) [facility] ([facility]) [address] [place] [address] 77805 Hemoglobin (Bld) [Mass/Vol] 9.1 g/dL Low 12.0-16.0 [facility] Comment on above: Performed By: #### 2 276-4 #### OMERO KNIGHT ([id number]) [facility] ([facility]) [address] [place] [address] 07433 MCH (RBC) [Entitic mass] 27.0 pg Normal 26.0-34.0 [facility] Comment on above: Performed By: #### 2 276-4 #### OMERO KNIGHT ([id number]) [facility] ([facility]) [address] [place] [address] 77080 MCHC (RBC) [Mass/Vol] 31.0 g/dL Low 32.0-36.0 [facility] Comment on above: Performed By: #### 2 276-4 #### OMERO KNIGHT ([id number]) [facility] ([facility]) [address] [place] [address] MCV (RBC) [Entitic vol] 87 fL Normal 80-100 [facility] Comment on above: Performed By: #### 2 276-4 #### OMERO KNIGHT ([id number]) [facility] ([facility]) [address] [place] [address] 25087 Nucleated RBC/100 WBC (Bld) [Ratio] 0.0 /100 WBCs Normal 0.0-0.0 [facility] Comment on above: Performed By: #### 2 276-4 #### OMERO KNIGHT ([id number]) [facility] ([facility]) [address] [place] [address] 94690 Platelets (Bld) [#/Vol] 192 x10*3/uL Normal 150-450 [facility] Comment on above: Performed By: #### 2 276-4 #### OMERO KNIGHT ([id number]) [facility] ([facility]) [address] [place] [address] 57090 RBC (Bld) [#/Vol] 3.37 x10*6/uL Low 4.00-5.20 [facility] Comment on above: Performed By: #### 2 276-4 #### OMERO KNIGHT ([id number]) [facility] ([facility]) [address] [place] [address] 00562 WBC (Bld) [#/Vol] 9.6 x10*3/uL Normal 4.4-11.3 [facility] Comment on above: Performed By: #### 2 276-4 #### OMERO KNIGHT ([id number]) [facility] ([facility]) [address] [place] [address] 50560 Glucose Test strip manual (B ld) [Mass/Vol]on 11-16-2023 Glucose [Mass/Vol] 164 mg/dL High 74 - 99 mg/dL [facility] Interpretation and review of laboratory results Abnormal [facility] Glucose [Mass/Vol] 164 mg/dL High 74-99 [facility] Comment on above: Performed By: #### 2 276-4 #### OMERO KNIGHT ([id number]) [facility] ([facility]) [address] [place] [address] Glucose [Mass/Vol] 168 mg/dL High 74 - 99 mg/dL [facility] Interpretation and review of laboratory results Abnormal [facility] Glucose [Mass/Vol] 168 mg/dL High 74-99 [facility] Comment on above: Performed By: #### 2 276-4 #### OMERO KNIGHT ([id number]) [facility] ([facility]) [address] [place] [address] 66727 Glucose [Mass/Vol] 165 mg/dL High 74 - 99 mg/dL [facility] Interpretation and review of laboratory results Abnormal [facility] Glucose [Mass/Vol] 165 mg/dL High 74-99 [facility] Comment on above: Performed By: #### 2 276-4 #### OMERO KNIGHT ([id number]) [facility] ([facility]) [address] [place] [address] 24312 Glucose [Mass/Vol] 125 mg/dL High 74 - 99 mg/dL [facility] Interpretation and review of laboratory results Abnormal [facility] Glucose [Mass/Vol] 125 mg/dL High 74-99 [facility] Comment on above: Performed By: #### 2 276-4 #### OMERO KNIGHT ([id number]) [facility] ([facility]) [address] [place] [address] 53648 Magnesiumon 11-16-2023 Magnesium [Mass/Vol] 1.76 mg/dL 1.60 - 2.40 mg/dL [facility] Magnesium [Mass/Vol] 1.76 mg/dL Normal 1.60-2.40 [facility] Comment on above: Performed By: #### 2 276-4 #### OMERO KNIGHT ([id number]) [facility] ([facility]) [address] [place] [address] 78791 Magnesium [Mass/Vol]on 11-15 Interpretation and review of laboratory results Normal [facility] No Panel Informationon 11-15 [facility] PICC >5 YR BEDSIDE IMAGINGon 11-16-2023 PICC >5 YR BEDSIDE IMAGING These images are not reportable by radiology and will not be interpreted by Radiologists. Normal [facility] Renal function 2000 panelon 11-16-2023 Albumin BCP dye [Mass/Vol] 2.7 g/dL Low 3.4 - 5.0 g/dL [facility] Anion gap [Moles/Vol] 12 mmol/L 10 - 2 0 mmol/L [facility] Calcium [Mass/Vol] 8.4 mg/dL Low 8.6 - 10. 6 mg/dL [facility] Chloride [Moles/Vol] 97 mmol/L Low 98 - 10 7 mmol/L [facility] CO2 [Moles/Vol] 31 mmol/L 21 - 32 mmol/L [facility] Creatinine [Mass/Vol] 0.77 mg/dL 0.50 - 1.05 mg/dL [facility] GFR/1.73 sq M.predicted among non-blacks MDRD (S/P/Bld) [Vol rate/Area] 81 mL/min/{1.73_m2} - PINF [facility] Glucose [Mass/Vol] 141 mg/dL High 74 - 99 mg/dL [facility] Interpretation and review of laboratory results Abnormal [facility] Phosphate [Mass/Vol] 2.0 mg/dL Low 2.5 - 4 .9 mg/dL [facility] Potassium [Moles/Vol] 3.3 mmol/L Low 3.5 - 5.3 mmol/L [facility] Sodium [Moles/Vol] 137 mmol/L 136 - 145 mmol/L [facility] Urea nitrogen [Mass/Vol] 17 mg/dL 6 - 23 mg/dL [facility] Albumin BCP dye [Mass/Vol] 2.7 g/dL Low 3.4-5.0 [facility] Comment on above: Performed By: #### 2 276-4 #### JAMIL EUGENE ([id number]) [facility] ([facility]) [address] [place] [address] Anion gap [Moles/Vol] 12 mmol/L Normal 10-20 [facility] on above: Performed By: #### 2 896-4 #### OMERO KNIGHT ([id number]) [facility] ([facility]) [address] [place] [address] 71332 Calcium [Mass/Vol] 8.4 mg/dL Low 8.6-10.6 [facility] Comment on above: Performed By: #### 2 276-4 #### OMERO KNIGHT ([id number]) [facility] ([facility]) [address] [place] [address] 67905 Chloride [Moles/Vol] 97 mmol/L Low 98-107 [facility] Comment on above: Performed By: #### 2 276-4 #### OMERO KNIGHT ([id number]) [facility] ([facility]) [address] [place] [address] 69936 CO2 [Moles/Vol] 31 mmol/L Normal 21-32 [facility] Comment on above: Performed By: #### 2 276-4 #### OMERO KNIGHT ([id number]) [facility] ([facility]) [address] [place] [address] 83441 Creatinine [Mass/Vol] 0.77 mg/dL Normal 0.50-1.05 [facility] Comment on above: Performed By: #### 2 276-4 #### OMERO KNIGHT ([id number]) [facility] ([facility]) [address] [place] [address] 91647 Glomerular filtration rate/1.73 sq M.predicted 81 mL/min/1.73m*2 Normal >60 [facility] Comment on above: Result Comment: Calc ulations of estimated GFR are performed using the 2020 CKD-EPI Study Refit equation without the race variable for the IDMS-Traceable creatinine methods. https://jasn.asnjournals.org/content//ASN.93195 00115 Performed By: #### 2 276-4 #### OMERO KNIGHT ([id number]) [facility] ([facility]) [address] [place] [address] 86503 Glucose [Mass/Vol] 141 mg/dL High 74-99 [facility] Comment on above: Performed By: #### 2 276-4 #### OMERO KNIGHT ([id number]) [facility] ([facility]) [address] [place] [address] 86761 Phosphate [Mass/Vol] 2.0 mg/dL Low 2.5-4.9 [facility] Comment on above: Result Comment: The performance characteristics of phosphorus testing in heparinized plasma have been validated by the individual laboratory site where testing is performed. Testing on heparinized plasma is not approved by the FDA; however, such approval is not necessary. Performed By: #### 2 276-4 #### OMERO KNIGHT ([id number]) [facility] ([facility]) [address] [place] [address] 99785 Potassium [Moles/Vol] 3.3 mmol/L Low 3.5-5.3 [facility] Comment on above: Performed By: #### 2 276-4 #### OMERO KNIGHT ([id number]) [facility] ([facility]) [address] [place] [address] 40555 Sodium [Moles/Vol] 137 mmol/L Normal 136-145 [facility] Comment on above: Performed By: #### 2 276-4 #### OMERO KNIGHT ([id number]) [facility] ([facility]) [address] [place] [address] 46529 Urea nitrogen [Mass/Vol] 17 mg/dL Normal 6-23 [facility] Comment on above: Performed By: #### 2 276-4 #### OMERO KNIGHT ([id number]) [facility] ([facility]) [address] [place] [address] 85253 Tissue/Wound Culture/Smearon 11-16-2023 Bacteria identified Cx Nom (Unsp spec) No growth aerobically and anaerobically [facility] Work Phone: Bacteria identified Cx Nom (Unsp spec) No growth aerobically and anaerobically [facility] Work Phone: XR CHEST 1 VIEWon 11-16-2023 XR CHEST 1 VIEW Interpreted By: Pastor Chowdhury, and Edmeston Tiffanie STUDY: XR CHEST 1 VIEW; 11/16/2023 5:05 pm INDICATION: Signs/Symptoms:PICC PLACEMENT. COMPARISON: 11/13/2023 chest radiograph ACCESSION NUMBER(S): [id number] ORDERING CLINICIAN: RU SANTOS FINDINGS: AP radiograph [...] as stated. This study was interpreted at [facility], [place], [place]. MACRO: None Signed by: Pastor Barrientos 11/17/2023 6:46 AM Dictation workstation: [id number] Normal [facility] XR Chest Single viewon 11-15 Radiology Study observation (narrative) [facility] Work Phone: Bacteria identified Cx Nom ( Unsp spec)Ordered By: Betty Hutchins on 11-15-2023 Microscopic observation Gram stain Nom (Unsp spec) (1+) Rare Polymorphonuclear leukocytes [facility] Microscopic observation Gram stain Nom (Unsp spec) No organisms seen [facility] CBC panel Auto (Bld)on 11-14 Erythrocyte distribution width (RBC) [Ratio] 16.2 % High 11.5 - 14.5 % [facility] Hematocrit (Bld) [Volume fraction] 31.4 % Low 36.0 - 46.0 % [facility] Hemoglobin (Bld) [Mass/Vol] 9.8 g/dL Low 12.0 - 16.0 g/dL [facility] Interpretation and review of laboratory results Abnormal [facility] MCH (RBC) [Entitic mass] 26.8 pg 26.0 - 34.0 pg [facility] MCHC (RBC) [Mass/Vol] 31.2 g/dL Low 32.0 - 36.0 g/dL [facility] MCV (RBC) [Entitic vol] 86 fL 80 - 100 fL [facility] Nucleated RBC/100 WBC (Bld) [Ratio] 0.0 % [facility] Platelets (Bld) [#/Vol] 234 10*3/uL [facility] RBC (Bld) [#/Vol] 3.65 10*6/uL Low [facility] WBC (Bld) [#/Vol] 10.9 10*3/uL [facility] Erythrocyte distribution width (RBC) [Ratio] 16.2 % High 11.5-14.5 [facility] Comment on above: Performed By: #### 2 4323-8 #### OMERO KNIGHT ([id number]) [facility] ([facility]) [address] [place] [address] 96484 Hematocrit (Bld) [Volume fraction] 31.4 % Low 36.0-46.0 [facility] Comment on above: Performed By: #### 2 4323-8 #### OMERO KNIGHT (89026) [facility] ([facility]) [address] [place] [address] 06246 Hemoglobin (Bld) [Mass/Vol] 9.8 g/dL Low 12.0-16.0 [facility] Comment on above: Performed By: #### 2 4323-8 #### OMERO KNIGHT ([id number]) [facility] ([facility]) [address] [place] [address] 87412 MCH (RBC) [Entitic mass] 26.8 pg Normal 26.0-34.0 [facility] Comment on above: Performed By: #### 2 4323-8 #### OMERO KNIGHT ([id number]) [facility] ([facility]) [address] [place] [address] 30109 MCHC (RBC) [Mass/Vol] 31.2 g/dL Low 32.0-36.0 [facility] Comment on above: Performed By: #### 2 4323-8 #### OMERO KNIGHT ([id number]) [facility] ([facility]) [address] [place] [address] 77614 MCV (RBC) [Entitic vol] 86 fL Normal 80-100 [facility] Comment on above: Performed By: #### 2 4322-8 #### OMERO KNIGHT ([id number]) [facility] ([facility]) [address] [place] [address] 22008 Nucleated RBC/100 WBC (Bld) [Ratio] 0.0 /100 WBCs Normal 0.0-0.0 [facility] Comment on above: Performed By: #### 2 432-8 #### OMERO KNIGHT ([id number]) [facility] ([facility]) [address] [place] [address] 80141 Platelets (Bld) [#/Vol] 234 x10*3/uL Normal 150-450 [facility] Comment on above: Performed By: #### 2 4322-8 #### OMERO KNIGHT ([id number]) [facility] ([facility]) [address] [place] [address] 68554 RBC (Bld) [#/Vol] 3.65 x10*6/uL Low 4.00-5.20 [facility] Comment on above: Performed By: #### 2 4323-8 #### OMERO KNIGHT ([id number]) [facility] ([facility]) [address] [place] [address] 88726 WBC (Bld) [#/Vol] 10.9 x10*3/uL Normal 4.4-11.3 [facility] Comment on above: Performed By: #### 2 4323-8 #### OMERO KNIGHT ([id number]) [facility] ([facility]) [address] [place] [address] 81926 ECG 12 LeadOrdered By: Fabio Bee on 11-15-2023 Atrial Rate 73 BPM [facility] Work Phone: [phone] P Lodi -24 degrees [facility] Work Phone: [phone] P Offset 148 ms [facility] Work Phone: [phone] P Onset 107 ms [facility] Work Phone: [phone] WV Interval 196 ms [facility] Work Phone: [phone] Q Onset 205 ms [facility] Work Phone: [phone] QRS Count 12 beats [facility] Work Phone: [phone] QRS Duration 106 ms [facility] Work Phone: [phone] QT Interval 384 ms [facility] Work Phone: [phone] QTC Calculation(Bazett) 423 [facility] Work Phone: [phone] QTC Fredericia 410 ms [facility] Work Phone: [phone] R L[place] -46 degrees [facility] Work Phone: [phone] T L[place] -41 degrees [facility] Work Phone: [phone] T Offset 397 ms [facility] Work Phone: [phone] Ventricular Rate 73 BPM [facility] Work Phone: [phone] [facility] Work Phone: [phone] ECG 12 Leadon 11-15-2023 [facility] Work Phone: Glucose Test strip manual (B ld) [Mass/Vol]on 11-15-2023 Glucose [Mass/Vol] 156 mg/dL High 74 - 99 mg/dL [facility] Interpretation and review of laboratory results Abnormal [facility] Glucose [Mass/Vol] 156 mg/dL High 74-99 [facility] Comment on above: Performed By: #### 2 276-4 #### JAMIL EUGENE ([id number]) [facility] ([facility]) [address] [place] [address] Glucose [Mass/Vol] 176 mg/dL High 74 - 99 mg/dL [facility] Interpretation and review of laboratory results Abnormal [facility] Glucose [Mass/Vol] 176 mg/dL High 74-99 [facility] Comment on above: Performed By: #### 2 4323-8 #### OMERO KNIGHT ([id number]) [facility] ([facility]) [address] [place] [address] 97008 Glucose [Mass/Vol] 166 mg/dL High 74 - 99 mg/dL [facility] Interpretation and review of laboratory results Abnormal [facility] Glucose [Mass/Vol] 166 mg/dL High 74-99 [facility] Comment on above: Performed By: #### 2 4323-8 #### OMERO KNIGHT (76999) [facility] ([facility]) [address] [place] [address] 33069 Glucose [Mass/Vol] 138 mg/dL High 74 - 99 mg/dL [facility] Interpretation and review of laboratory results Abnormal [facility] Glucose [Mass/Vol] 138 mg/dL High 74-99 [facility] Comment on above: Performed By: #### 2 4323-8 #### OMERO KNIGHT ([id number]) [facility] ([facility]) [address] [place] [address] 06136 Magnesiumon 11-15-2023 Magnesium [Mass/Vol] 1.36 mg/dL Low 1.60 - 2.40 mg/dL [facility] Magnesium [Mass/Vol] 1.36 mg/dL Low 1.60-2.40 [facility] Comment on above: Performed By: #### 2 4323-8 #### OMERO KNIGHT ([id number]) [facility] ([facility]) [address] [place] [address] 94336 No Panel Informationon 11-14 Blood Expiration Date 12/11/2023 11:59:00 PM EDT [facility]100 [facility] PRODUCT CODE [id number] [facility] Unit ABO O [facility] Unit RH Positive [facility] UNIT VOLUME 350 [facility] XM INTEP COMP [facility] Interpretation and review of laboratory results Abnormal [facility] Prepare RBC: 4 Unitson 11-14 Blood Expiration Date 12/12/2023 11:59:00 PM EDT [facility] PRODUCT CODE [id number] [facility] Unit Number [id number] [facility] Unit Number [id number] [facility] Unit Number [id number] [facility] Unit Number [id number] [facility] UNIT VOLUME 288 [facility] Renal function 2000 panelon 11-15-2023 Albumin BCP dye [Mass/Vol] 2.6 g/dL Low 3.4 - 5.0 g/dL [facility] Anion gap [Moles/Vol] 14 mmol/L 10 - 2 0 mmol/L [facility] Calcium [Mass/Vol] 8.1 mg/dL Low 8.6 - 10. 6 mg/dL [facility] Chloride [Moles/Vol] 96 mmol/L Low 98 - 10 7 mmol/L [facility] CO2 [Moles/Vol] 29 mmol/L 21 - 32 mmol/L [facility] Creatinine [Mass/Vol] 0.95 mg/dL 0.50 - 1.05 mg/dL [facility] GFR/1.73 sq M.predicted among non-blacks MDRD (S/P/Bld) [Vol rate/Area] 63 mL/min/{1.73_m2} - PINF [facility] Glucose [Mass/Vol] 183 mg/dL High 74 - 99 mg/dL [facility] Phosphate [Mass/Vol] 3.1 mg/dL 2.5 - 4 .9 mg/dL [facility] Potassium [Moles/Vol] 3.8 mmol/L 3.5 - 5.3 mmol/L [facility] Sodium [Moles/Vol] 135 mmol/L Low 136 - 145 mmol/L [facility] Urea nitrogen [Mass/Vol] 20 mg/dL 6 - 23 mg/dL [facility] Albumin BCP dye [Mass/Vol] 2.6 g/dL Low 3.4-5.0 [facility] Comment on above: Performed By: #### 2 4323-8 #### OMERO KNIGHT ([id number]) [facility] ([facility]) [address] [place] [address] 18108 Anion gap [Moles/Vol] 14 mmol/L Normal 10-20 [facility] Comment on above: Performed By: #### 2 4322-8 #### OMERO KNIGHT ([id number]) [facility] ([facility]) [address] [place] [address] 54975 Calcium [Mass/Vol] 8.1 mg/dL Low 8.6-10.6 [facility] Comment on above: Performed By: #### 2 4322-8 #### OMERO KNIGHT (12285) [facility] ([facility]) [address] [place] [address] 24060 Chloride [Moles/Vol] 96 mmol/L Low 98-107 [facility] Comment on above: Performed By: #### 2 4322-8 #### OMERO KNIGHT (31052) [facility] ([facility]) [address] [place] [address] 06407 CO2 [Moles/Vol] 29 mmol/L Normal 21-32 [facility] Comment on above: Performed By: #### 2 4322-8 #### OMERO KNIGHT ([id number]) [facility] ([facility]) [address] [place] [address] 27617 Creatinine [Mass/Vol] 0.95 mg/dL Normal 0.50-1.05 [facility] Comment on above: Performed By: #### 2 432-8 #### OMERO KNIGHT (48772) [facility] ([facility]) [address] [place] [address] 94415 Glomerular filtration rate/1.73 sq M.predicted 63 mL/min/1.73m*2 Normal >60 [facility] Comment on above: Result Comment: Calc ulations of estimated GFR are performed using the 2020 CKD-EPI Study Refit equation without the race variable for the IDMS-Traceable creatinine methods. https://jasn.asnjournals.org/content//ASN.98367 60499 Performed By: #### 2 4323-8 #### OMERO KNIGHT (15584) [facility] ([facility]) [address] [place] [address] 95784 Glucose [Mass/Vol] 183 mg/dL High 74-99 [facility] Comment on above: Performed By: #### 2 4323-8 #### OMERO KNIGHT ([id number]) [facility] ([facility]) [address] [place] [address] 53657 Phosphate [Mass/Vol] 3.1 mg/dL Normal 2.5-4.9 [facility] Comment on above: Result Comment: The performance characteristics of phosphorus testing in heparinized plasma have been validated by the individual laboratory site where testing is performed. Testing on heparinized plasma is not approved by the FDA; however, such approval is not necessary. Performed By: #### 2 4323-8 #### OMERO KNIGHT (12058) [facility] ([facility]) [address] [place] [address] 46085 Potassium [Moles/Vol] 3.8 mmol/L Normal 3.5-5.3 [facility] Comment on above: Performed By: #### 2 4323-8 #### OMERO KNIGHT ([id number]) [facility] ([facility]) [address] [place] [address] 70580 Sodium [Moles/Vol] 135 mmol/L Low 136-145 [facility] Comment on above: Performed By: #### 2 4323-8 #### OMERO KNIGHT ([id number]) [facility] ([facility]) [address] [place] [address] 64737 Urea nitrogen [Mass/Vol] 20 mg/dL Normal 6-23 [facility] Comment on above: Performed By: #### 2 4323-8 #### OMERO KNIGHT ([id number]) [facility] ([facility]) [address] [place] [address] Tissue/Wound Culture/SmearOr dered By: Betty Hutchins on 11-15-2023 Bacteria identified Cx Nom (Unsp spec) No growth aerobically and anaerobically [facility] Bacteria identifiedon 2023 Bacteria identified Cx Nom (Unsp spec) Test: Tissue/Wound Culture/Smear Specimen Source: [facility] Specimen Type: Swab Specimen Date: 11/14/20231754 Result Date: 11/16/2023 1431 Result Status: Final result Resulting Lab: [facility] [address] [place] [address] CULTURE No growth aerobically and anaerobically STAIN No polymorphonuclear leukocytes seen No organisms seen Normal [facility] Comment on above: Performed By: #### 2 4323-8 #### OMERO KNIGHT ([id number]) [facility] ([facility]) [address] [place] [address] Bacteria identified Cx Nom (Unsp spec) Test: Tissue/Wound Culture/Smear Specimen Source: [facility] Specimen Type: Swab Specimen Date: 11/14/20231732 Result Date: 11/16/2023 1200 Result Status: Final result Resulting Lab: [facility] [address] [place] [address] CULTURE No growth aerobically and anaerobically STAIN No polymorphonuclear leukocytes seen No organisms seen Normal [facility] Comment on above: Performed By: #### 2 4323-8 #### OMERO KNIGHT ([id number]) [facility] ([facility]) [address] [place] [address] CBC panel Auto (Bld)on 11-13 Erythrocyte distribution width (RBC) [Ratio] 15.9 % High 11.5 - 14.5 % [facility] Hematocrit (Bld) [Volume fraction] 34.8 % Low 36.0 - 46.0 % [facility] Hemoglobin (Bld) [Mass/Vol] 10.5 g/dL Low 12.0 - 16.0 g/dL [facility] Interpretation and review of laboratory results Abnormal [facility] MCH (RBC) [Entitic mass] 25.9 pg Low 26.0 - 34.0 pg [facility] MCHC (RBC) [Mass/Vol] 30.2 g/dL Low 32.0 - 36.0 g/dL [facility] MCV (RBC) [Entitic vol] 86 fL 80 - 100 fL [facility] Nucleated RBC/100 WBC (Bld) [Ratio] 0.0 % [facility] Platelets (Bld) [#/Vol] 190 10*3/uL [facility] RBC (Bld) [#/Vol] 4.06 10*6/uL [facility] WBC (Bld) [#/Vol] 6.4 10*3/uL [facility] Erythrocyte distribution width (RBC) [Ratio] 15.9 % High 11.5-14.5 [facility] Comment on above: Performed By: #### 5 8410-2 #### OMREO KNIGHT ([id number]) [facility] ([facility]) [address] [place] [address] 72389 Hematocrit (Bld) [Volume fraction] 34.8 % Low 36.0-46.0 [facility] Comment on above: Performed By: #### 5 8410-2 #### OMERO KNIGHT ([id number]) [facility] ([facility]) [address] [place] [address] 76701 Hemoglobin (Bld) [Mass/Vol] 10.5 g/dL Low 12.0-16.0 [facility] Comment on above: Performed By: #### 5 8410-2 #### OMERO KNIGHT ([id number]) [facility] ([facility]) [address] [place] [address] 57912 MCH (RBC) [Entitic mass] 25.9 pg Low 26.0-34.0 [facility] Comment on above: Performed By: #### 5 8410-2 #### OMERO KNIGHT (56462) [facility] ([facility]) [address] [place] [address] 07722 MCHC (RBC) [Mass/Vol] 30.2 g/dL Low 32.0-36.0 [facility] Comment on above: Performed By: #### 5 8410-2 #### OMERO KNIGHT (53823) [facility] ([facility]) [address] [place] [address] MCV (RBC) [Entitic vol] 86 fL Normal 80-100 [facility] Comment on above: Performed By: #### 5 8410-2 #### OMERO KNIGHT ([id number]) [facility] ([facility]) [address] [place] [address] Nucleated RBC/100 WBC (Bld) [Ratio] 0.0 /100 WBCs Normal 0.0-0.0 [facility] Comment on above: Performed By: #### 5 8410-2 #### OMERO KNIGHT (72131) [facility] ([facility]) [address] [place] [address] 78419 Platelets (Bld) [#/Vol] 190 x10*3/uL Normal 150-450 [facility] Comment on above: Performed By: #### 5 8410-2 #### OMERO KNIGHT ([id number]) [facility] ([facility]) [address] [place] [address] 03401 RBC (Bld) [#/Vol] 4.06 x10*6/uL Normal 4.00-5.20 [facility] Comment on above: Performed By: #### 5 8410-2 #### OMERO KNIGHT ([id number]) [facility] ([facility]) [address] [place] [address] 41457 WBC (Bld) [#/Vol] 6.4 x10*3/uL Normal 4.4-11.3 [facility] Comment on above: Performed By: #### 5 8410-2 #### OMERO KNIGHT ([id number]) [facility] ([facility]) [address] [place] [address] CT Guidance for deep biopsy of Boneon 11-14-2023 [facility] MMODAL U[facility] MMODAL [facility] Work Phone: CT Guidance for deep biopsy of BoneOrdered By: Caron Donaldson on 11-14-2023 [facility] Work Phone: Extra Urine Gonzalez Tubeon - Extra Tube Hold for add-ons. [facility] FL FLUORO IMAGES NO CHARGEon 11-14-2023 FL FLUORO IMAGES NO CHARGE These images are not reportable by radiology and will not be interpreted by Radiologists. Normal [facility] Gas and Carbon monoxide and Electrolytes panel (BldA)on 11-14-2023 Anion gap 4 (BldA) [Moles/Vol] 8 Low [facility] Base excess Calc (Bld) [Moles/Vol] 5.0 mmol/L High -2.0 - 3.0 mmol/L [facility] Calcium.ionized (BldA) [Moles/Vol] 1.18 mmol/L 1.10 - 1.33 mmol/L [facility] Chloride (BldA) [Moles/Vol] 101 mmol/L 98 - 107 mmol/L [facility] CO2 (Bld) [Partial pressure] 40 mm[Hg] [facility] Glucose [Mass/Vol] 137 mg/dL High 74 - 99 mg/dL [facility] HCO3 (Bld) [Moles/Vol] 29.1 mmol/L High 22.0 - 26.0 mmol/L [facility] Hematocrit Est (Bld) [Volume fraction] 30.0 % Low 36.0 - 46.0 % [facility] Hemoglobin (Bld) [Mass/Vol] 10.0 g/dL Low 12.0 - 16.0 g/dL [facility] Inhaled oxygen concentration 50 % [facility] Interpretation and review of laboratory results Abnormal [facility] Lactate (BldA) [Moles/Vol] 1.5 mmol/L 0.4 - 2.0 mmol/L [facility] Oxygen (Bld) [Partial pressure] 189 mm[Hg] High [facility] Oxyhemoglobin (BldA) [Mass fraction] 97.7 % 94.0 - 98.0 % [facility] pH (Bld) 7.47 [pH] High 7.38 - 7.42 pH [facility] Potassium (BldA) [Moles/Vol] 3.7 mmol/L 3.5 - 5.3 mmol/L [facility] Sodium (BldA) [Moles/Vol] 134 mmol/L Low 136 - 145 mmol/L [facility] Anion gap 4 (BldA) [Moles/Vol] 8 mmo/L Low 10-25 [facility] Comment on above: Performed By: #### 5 8410-2 #### OMERO KNIGHT ([id number]) [facility] ([facility]) [address] [place] [address] Base excess Calc (Bld) [Moles/Vol] 5.0 mmol/L High -2.0-3.0 [facility] Comment on above: Performed By: #### 5 8410-2 #### OMERO KNIGHT ([id number]) [facility] ([facility]) [address] [place] [address] 11528 Calcium.ionized (BldA) [Moles/Vol] 1.18 mmol/L Normal 1.10-1.33 [facility] Comment on above: Performed By: #### 5 8410-2 #### OMERO KNIGHT ([id number]) [facility] ([facility]) [address] [place] [address] 61647 Chloride (BldA) [Moles/Vol] 101 mmol/L Normal 98-107 [facility] Comment on above: Performed By: #### 5 8410-2 #### OMERO KNIGHT ([id number]) [facility] ([facility]) [address] [place] [address] 11922 CO2 (Bld) [Partial pressure] 40 mm Hg Normal 38-42 [facility] Comment on above: Performed By: #### 5 8410-2 #### OMERO KNIGHT ([id number]) [facility] ([facility]) [address] [place] [address] 37560 Glucose [Mass/Vol] 137 mg/dL High 74-99 [facility] Comment on above: Performed By: #### 5 8410-2 #### OMERO KNIGHT ([id number]) [facility] ([facility]) [address] [place] [address] 76727 HCO3 (Bld) [Moles/Vol] 29.1 mmol/L High 22.0-26.0 [facility] Comment on above: Performed By: #### 5 8410-2 #### OMERO KNIGHT ([id number]) [facility] ([facility]) [address] [place] [address] 47640 Hematocrit Est (Bld) [Volume fraction] 30.0 % Low 36.0-46.0 [facility] Comment on above: Performed By: #### 5 8410-2 #### OMERO KNIGHT ([id number]) [facility] ([facility]) [address] [place] [address] 87061 Hemoglobin (Bld) [Mass/Vol] 10.0 g/dL Low 12.0-16.0 [facility] Comment on above: Performed By: #### 5 8410-2 #### OMERO KNIGHT ([id number]) [facility] ([facility]) [address] [place] [address] 57315 Inhaled oxygen concentration 50 % Normal [facility] Comment on above: Performed By: #### 5 8410-2 #### OMERO KNIGHT ([id number]) [facility] ([facility]) [address] [place] [address] 85068 Lactate (BldA) [Moles/Vol] 1.5 mmol/L Normal 0.4-2.0 [facility] Comment on above: Performed By: #### 5 8410-2 #### OMERO KNIGHT ([id number]) [facility] ([facility]) [address] [place] [address] 11390 Oxygen (Bld) [Partial pressure] 189 mm Hg High 85-95 [facility] Comment on above: Performed By: #### 5 8410-2 #### OMERO KNIGHT ([id number]) [facility] ([facility]) [address] [place] [address] Oxyhemoglobin (BldA) [Mass fraction] 97.7 % Normal 94.0-98.0 [facility] Comment on above: Performed By: #### 5 8410-2 #### OMERO KNIGHT ([id number]) [facility] ([facility]) [address] [place] [address] pH (Bld) 7.47 [pH] High 7.38-7.42 [facility] Comment on above: Performed By: #### 5 8410-2 #### OMERO KNIGHT ([id number]) [facility] ([facility]) [address] [place] [address] Potassium (BldA) [Moles/Vol] 3.7 mmol/L Normal 3.5-5.3 [facility] Comment on above: Performed By: #### 5 8410-2 #### OMERO KNIGHT ([id number]) [facility] ([facility]) [address] [place] [address] Sodium (BldA) [Moles/Vol] 134 mmol/L Low 136-145 [facility] Comment on above: Performed By: #### 5 8410-2 #### OMERO KNIGHT ([id number]) [facility] ([facility]) [address] [place] [address] Anion gap 4 (BldA) [Moles/Vol] 5 Low [facility] Base excess Calc (Bld) [Moles/Vol] 6.2 mmol/L High -2.0 - 3.0 mmol/L [facility] Calcium.ionized (BldA) [Moles/Vol] 1.17 mmol/L 1.10 - 1.33 mmol/L [facility] Chloride (BldA) [Moles/Vol] 101 mmol/L 98 - 107 mmol/L [facility] CO2 (Bld) [Partial pressure] 36 mm[Hg] Low [facility] Glucose [Mass/Vol] 120 mg/dL High 74 - 99 mg/dL [facility] HCO3 (Bld) [Moles/Vol] 29.4 mmol/L High 22.0 - 26.0 mmol/L [facility] Hematocrit Est (Bld) [Volume fraction] 31.0 % Low 36.0 - 46.0 % [facility] Hemoglobin (Bld) [Mass/Vol] 10.3 g/dL Low 12.0 - 16.0 g/dL [facility] Inhaled oxygen concentration 50 % [facility] Interpretation and review of laboratory results Abnormal [facility] Lactate (BldA) [Moles/Vol] 1.1 mmol/L 0.4 - 2.0 mmol/L [facility] Oxygen (Bld) [Partial pressure] 191 mm[Hg] High [facility] Oxyhemoglobin (BldA) [Mass fraction] 97.6 % 94.0 - 98.0 % [facility] pH (Bld) 7.52 [pH] High 7.38 - 7.42 pH [facility] Potassium (BldA) [Moles/Vol] 2.8 mmol/L Critically low 3.5 - 5.3 mmol/L [facility] Sodium (BldA) [Moles/Vol] 133 mmol/L Low 136 - 145 mmol/L [facility] Anion gap 4 (BldA) [Moles/Vol] 5 mmo/L Low 10-25 [facility] Comment on above: Performed By: #### 5 8410-2 #### OMERO KNIGHT ([id number]) [facility] ([facility]) [address] [place] [address] Base excess Calc (Bld) [Moles/Vol] 6.2 mmol/L High -2.0-3.0 [facility] Comment on above: Performed By: #### 5 8410-2 #### OMERO KNIGHT ([id number]) [facility] ([facility]) [address] [place] [address] Calcium.ionized (BldA) [Moles/Vol] 1.17 mmol/L Normal 1.10-1.33 [facility] Comment on above: Performed By: #### 5 8410-2 #### OMERO KNIGHT (45803) [facility] ([facility]) [address] [place] [address] Chloride (BldA) [Moles/Vol] 101 mmol/L Normal 98-107 [facility] Comment on above: Performed By: #### 5 8410-2 #### OMERO KNIGHT ([id number]) [facility] ([facility]) [address] [place] [address] CO2 (Bld) [Partial pressure] 36 mm Hg Low 38-42 [facility] Comment on above: Performed By: #### 5 8410-2 #### OMERO KNIGHT ([id number]) [facility] ([facility]) [address] [place] [address] 21553 Glucose [Mass/Vol] 120 mg/dL High 74-99 [facility] Comment on above: Performed By: #### 5 8410-2 #### OMERO KNIGHT ([id number]) [facility] ([facility]) [address] [place] [address] 10336 HCO3 (Bld) [Moles/Vol] 29.4 mmol/L High 22.0-26.0 [facility] Comment on above: Performed By: #### 5 8410-2 #### OMERO KNIGHT ([id number]) [facility] ([facility]) [address] [place] [address] 99355 Hematocrit Est (Bld) [Volume fraction] 31.0 % Low 36.0-46.0 [facility] Comment on above: Performed By: #### 5 8410-2 #### OMERO KNIGHT ([id number]) [facility] ([facility]) [address] [place] [address] 61179 Hemoglobin (Bld) [Mass/Vol] 10.3 g/dL Low 12.0-16.0 [facility] Comment on above: Performed By: #### 5 8410-2 #### OMERO KNIGHT ([id number]) [facility] ([facility]) [address] [place] [address] 58784 Inhaled oxygen concentration 50 % Normal [facility] Comment on above: Performed By: #### 5 8410-2 #### OMERO KNIGHT ([id number]) [facility] ([facility]) [address] [place] [address] 97962 Lactate (BldA) [Moles/Vol] 1.1 mmol/L Normal 0.4-2.0 [facility] Comment on above: Performed By: #### 5 8410-2 #### OMERO KNIGHT ([id number]) [facility] ([facility]) [address] [place] [address] 26879 Oxygen (Bld) [Partial pressure] 191 mm Hg High 85-95 [facility] Comment on above: Performed By: #### 5 8410-2 #### OMERO KNIGHT ([id number]) [facility] ([facility]) [address] [place] [address] 74427 Oxyhemoglobin (BldA) [Mass fraction] 97.6 % Normal 94.0-98.0 [facility] Comment on above: Performed By: #### 5 8410-2 #### OMERO KNIGHT ([id number]) [facility] ([facility]) [address] [place] [address] 36629 pH (Bld) 7.52 [pH] High 7.38-7.42 [facility] Comment on above: Performed By: #### 5 8410-2 #### OMERO KNIGHT ([id number]) [facility] ([facility]) [address] [place] [address] 37323 Potassium (BldA) [Moles/Vol] 2.8 mmol/L Critically low 3.5-5.3 [facility] Comment on above: Performed By: #### 5 8410-2 #### OMERO KNIGHT (05305) [facility] ([facility]) [address] [place] [address] 41817 Sodium (BldA) [Moles/Vol] 133 mmol/L Low 136-145 [facility] Comment on above: Performed By: #### 5 8410-2 #### OMERO KNIGHT ([id number]) [facility] ([facility]) [address] [place] [address] 63111 Glucose Test strip manual (B ld) [Mass/Vol]on 11-14-2023 Glucose [Mass/Vol] 181 mg/dL High 74 - 99 mg/dL [facility] Interpretation and review of laboratory results Abnormal [facility] Glucose [Mass/Vol] 181 mg/dL High 74-99 [facility] Comment on above: Performed By: #### 2 4323-8 #### OMERO KNIGHT ([id number]) [facility] ([facility]) [address] [place] [address] 83795 Glucose [Mass/Vol] 112 mg/dL High 74 - 99 mg/dL [facility] Interpretation and review of laboratory results Abnormal [facility] Glucose [Mass/Vol] 112 mg/dL High 74-99 [facility] Comment on above: Performed By: #### 5 8410-2 #### OMERO KNIGHT ([id number]) [facility] ([facility]) [address] [place] [address] 60570 Glucose [Mass/Vol] 115 mg/dL High 74 - 99 mg/dL [facility] Interpretation and review of laboratory results Abnormal [facility] Glucose [Mass/Vol] 115 mg/dL High 74-99 [facility] Comment on above: Performed By: #### 5 8410-2 #### OMERO KNIGHT ([id number]) [facility] ([facility]) [address] [place] [address] 74250 PT and aPTT panel Coag (PPP) on 11-14-2023 aPTT Coag (PPP) [Time] 34 s [facility] INR Coag (PPP) [Relative time] 1.1 {INR} 0.9 - 1.1 [facility] Interpretation and review of laboratory results Normal [facility] PT Coag (PPP) [Time] 12.7 s [facility] aPTT Coag (PPP) [Time] 34 s Normal 27-38 [facility] Comment on above: Order Comment: The A PTT is no longer used for monitoring Unfractionated Heparin Therapy. For monitoring Heparin Therapy, use the Heparin Assay. Performed By: #### 5 8410-2 #### OMERO KNIGHT ([id number]) [facility] ([facility]) [facility] [place] [address] INR Coag (PPP) [Relative time] 1.1 Normal 0.9-1.1 [facility] Comment on above: Order Comment: The A PTT is no longer used for monitoring Unfractionated Heparin Therapy. For monitoring Heparin Therapy, use the Heparin Assay. Performed By: #### 5 8410-2 #### OMERO KNIGHT ([id number]) [facility] ([facility]) [facility] [place] [address] PT Coag (PPP) [Time] 12.7 s Normal 9.8-12.8 [facility] Comment on above: Order Comment: The A PTT is no longer used for monitoring Unfractionated Heparin Therapy. For monitoring Heparin Therapy, use the Heparin Assay. Performed By: #### 5 8410-2 #### OMERO KNIGHT ([id number]) [facility] ([facility]) [address] [place] [address] 23324 Renal function 2000 panelon 11-14-2023 Albumin BCP dye [Mass/Vol] 2.7 g/dL Low 3.4 - 5.0 g/dL [facility] Anion gap [Moles/Vol] 10 mmol/L 10 - 2 0 mmol/L [facility] Calcium [Mass/Vol] 8.9 mg/dL 8.6 - 10. 6 mg/dL [facility] Chloride [Moles/Vol] 96 mmol/L Low 98 - 10 7 mmol/L [facility] CO2 [Moles/Vol] 35 mmol/L High 21 - 32 mmol/L [facility] Creatinine [Mass/Vol] 0.97 mg/dL 0.50 - 1.05 mg/dL [facility] GFR/1.73 sq M.predicted among non-blacks MDRD (S/P/Bld) [Vol rate/Area] 61 mL/min/{1.73_m2} - PINF [facility] Glucose [Mass/Vol] 110 mg/dL High 74 - 99 mg/dL [facility] Interpretation and review of laboratory results Abnormal [facility] Phosphate [Mass/Vol] 3.3 mg/dL 2.5 - 4 .9 mg/dL [facility] Potassium [Moles/Vol] 3.4 mmol/L Low 3.5 - 5.3 mmol/L [facility] Sodium [Moles/Vol] 138 mmol/L 136 - 145 mmol/L [facility] Urea nitrogen [Mass/Vol] 16 mg/dL 6 - 23 mg/dL [facility] Albumin BCP dye [Mass/Vol] 2.7 g/dL Low 3.4-5.0 [facility] Comment on above: Performed By: #### 5 8410-2 #### OMERO KINGHT ([id number]) [facility] ([facility]) [address] [place] [address] 96250 Anion gap [Moles/Vol] 10 mmol/L Normal 10-20 [facility] Comment on above: Performed By: #### 5 8410-2 #### OMERO KNIGHT ([id number]) [facility] ([facility]) [address] [place] [address] 71277 Calcium [Mass/Vol] 8.9 mg/dL Normal 8.6-10.6 [facility] Comment on above: Performed By: #### 5 8410-2 #### OMERO KNIGHT ([id number]) [facility] ([facility]) [address] [place] [address] 93227 Chloride [Moles/Vol] 96 mmol/L Low 98-107 [facility] Comment on above: Performed By: #### 5 8410-2 #### OMERO KNIGHT ([id number]) [facility] ([facility]) [address] [place] [address] 46037 CO2 [Moles/Vol] 35 mmol/L High 21-32 [facility] Comment on above: Performed By: #### 5 8410-2 #### OMERO KNIGHT ([id number]) [facility] ([facility]) [address] [place] [address] 84740 Creatinine [Mass/Vol] 0.97 mg/dL Normal 0.50-1.05 [facility] Comment on above: Performed By: #### 5 8410-2 #### OMERO KNIGHT ([id number]) [facility] ([facility]) [address] [place] [address] 30001 Glomerular filtration rate/1.73 sq M.predicted 61 mL/min/1.73m*2 Normal >60 [facility] Comment on above: Result Comment: Calc ulations of estimated GFR are performed using the 2020 CKD-EPI Study Refit equation without the race variable for the IDMS-Traceable creatinine methods. https://jasn.asnjournals.org/content/early//ASN.42023 16290 Performed By: #### 5 8410-2 #### OMERO KNIGHT ([id number]) [facility] ([facility]) [address] [place] [address] 51844 Glucose [Mass/Vol] 110 mg/dL High 74-99 [facility] Comment on above: Performed By: #### 5 8410-2 #### OMERO KNIGHT ([id number]) [facility] ([facility]) [address] [place] [address] 58015 Phosphate [Mass/Vol] 3.3 mg/dL Normal 2.5-4.9 [facility] Comment on above: Result Comment: The performance characteristics of phosphorus testing in heparinized plasma have been validated by the individual laboratory site where testing is performed. Testing on heparinized plasma is not approved by the FDA; however, such approval is not necessary. Performed By: #### 5 8410-2 #### OMERO KNIGHT ([id number]) [facility] ([facility]) [address] [place] [address] 34728 Potassium [Moles/Vol] 3.4 mmol/L Low 3.5-5.3 [facility] Comment on above: Performed By: #### 5 8410-2 #### OMERO KNIGHT ([id number]) [facility] ([facility]) [address] [place] [address] 89097 Sodium [Moles/Vol] 138 mmol/L Normal 136-145 [facility] Comment on above: Performed By: #### 5 8410-2 #### OMERO KNIGHT ([id number]) [facility] ([facility]) [facility] [place] [address] Urea nitrogen [Mass/Vol] 16 mg/dL Normal - [facility] Comment on above: Performed By: #### 5 8410-2 #### OMERO KNIGHT ([id number]) [facility] ([facility]) [facility] [place] [address] XR Chest Single viewon 11-13 UH MMODAL UH MMODAL [facility] Work Phone: XR Chest Single viewOrdered By: Bunny Asher on 11-14-2023 [facility] Work Phone: XR tomography Unspecified bhavik dy regionon 11-14-2023 IMAGING BROAD RANGE PCR-BACTERIAon 0 11-13-2023 SCAN RESULT See Scanned Result Normal [facility] Comment on above: Order Comment: EPIDU RAL ABSCESS Performed By: #### 1 9123-9 #### OMERO KNIGHT ([id number]) [facility] ([facility]) [address] [place] [address] 32724 Bacteria identifiedon 2023 Bacteria identified Cx Nom (Unsp spec) Test: Tissue/Wound Culture/Smear Specimen Source: Wound/Tissue Specimen Type: Tissue/Biopsy Specimen Date: 11/13/2023 1111 Result Date: 11/15/2023 1013 Result Status: Final result Resulting Lab: [facility] [address] [place] [address] CULTURE No growth aerobically and anaerobically STAIN (1+) Rare Polymorphonuclear leukocytes No organisms seen Normal [facility] Comment on above: Performed By: #### 5 8410-2 #### OMERO KNIGHT ([id number]) [facility] ([facility]) [address] [place] [address] 61996 Bacteria identified Cx Nom ( Bld)on 11-13-2023 Interpretation and review of laboratory results Normal [facility] Blood type and Indirect anti body screen panel (Bld)on 11-13-2023 ABO group Nom (Bld) O [facility] Blood group antibody screen Ql Negative [facility] D Ag Ql (Bld) Positive [facility] ABO group Nom (Bld) O Normal [facility] Comment on above: Performed By: #### 4 548-4 #### OMERO KNIGHT ([id number]) [facility] ([facility]) [address] [place] [address] Blood group antibody screen Ql Negative Normal [facility] Comment on above: Performed By: #### 4 548-4 #### OMERO KNIGHT ([id number]) [facility] ([facility]) [address] [place] [address] D Ag Ql (Bld) Positive [facility] Comment on above: Performed By: #### 4 548-4 #### OMERO KNIGHT ([id number]) [facility] ([facility]) [address] [place] [address] CT Guidance for deep biopsy of Boneon 11-13-2023 Radiology Study observation (narrative) [facility] Work Phone: Glucose Test strip manual (B ld) [Mass/Vol]on 11-13-2023 Glucose [Mass/Vol] 122 mg/dL High 74 - 99 mg/dL [facility] Interpretation and review of laboratory results Abnormal [facility] Glucose [Mass/Vol] 122 mg/dL High 74-99 [facility] Comment on above: Performed By: #### 4 548-4 #### OMERO KNIGHT ([id number]) [facility] ([facility]) [address] [place] [address] Glucose [Mass/Vol] 171 mg/dL High 74 - 99 mg/dL [facility] Interpretation and review of laboratory results Abnormal [facility] Glucose [Mass/Vol] 171 mg/dL High 74-99 [facility] Comment on above: Performed By: #### 4 548-4 #### OMERO KNIGHT ([id number]) [facility] ([facility]) [facility] [place] [address] Glucose [Mass/Vol] 122 mg/dL High 74 - 99 mg/dL [facility] Interpretation and review of laboratory results Abnormal [facility] Glucose [Mass/Vol] 122 mg/dL High 74-99 [facility] Comment on above: Performed By: #### 4 548-4 #### OMERO KNIGHT ([id number]) [facility] ([facility]) [facility] [place] [address] Glucose [Mass/Vol] 109 mg/dL High 74 - 99 mg/dL [facility] Interpretation and review of laboratory results Abnormal [facility] Glucose [Mass/Vol] 109 mg/dL High 74-99 [facility] Comment on above: Performed By: #### 4 548-4 #### OMERO KNIGHT ([id number]) [facility] ([facility]) [address] [place], [place] [address] Laboratory - Microbiology an d Antimicrobial susceptibilityon 11-13-2023 Bacteria identified Cx Nom (Bld) No growth at 4 days - FINAL REPORT [facility] Surgical pathology studyon 0 11-13-2023 Surgical pathology study Pathology report.total SEE COMMENT Surgical Pathology Case: [id number] Authorizing Provider: Ru Santos MD Collected: 11/13/2023 1109 Ordering Location: [facility] Received: 11/13/[address] [place] [address] Pathologist: Edmundo Joe MD Specimen: BONE BIOPSY [...] in one cassette following decalcification. RCC Normal [facility] Urinalysis complete W Reflex Culture panel (U)on 11-13-2023 Appearance (U) Clear Clear [facility] Bilirubin (U) [Mass/Vol] Negative NEGATIVE [facility] Color (U) Light-Yellow Light-Yellow , Yellow, Dark-Yellow [facility] Epithelial cells.squamous Auto (Urine sed) [#/Area] 1-9 (SPARSE) Reference range not established. /HPF [facility] Glucose Auto test strip (U) [Mass/Vol] Normal Normal mg/dL [facility] Interpretation and review of laboratory results Normal [facility] Ketones (U) [Mass/Vol] Negative NEGAT JORGE mg/dL [facility] Leukocyte esterase Auto test strip Ql (U) Negative NEGATIVE [facility] [facility] Auto test strip Ql (U) Negative NEGATIVE [facility] pH (U) 7.0 [pH] 5.0, 5.5, 6.0, 6.5, 7.0, 7.5, 8.0 [facility] Protein (U) [Mass/Vol] 20 (TRACE) NEGAT JORGE, 10 (TRACE), 20 (TRACE) mg/dL [facility] RBC (U) [#/Vol] Negative NEGATIVE [facility] RBC Auto (Urine sed) [#/Area] 1-2 NONE, 1-2, 3-5 /HPF [facility] Specific gravity (U) [Rel density] 1.011 1.005 - 1.035 [facility] Urobilinogen (U) [Mass/Vol] Normal Normal mg/dL [facility] WBC Auto (Urine sed) [#/Area] 1-5 1-5, NONE /HPF [facility] Appearance (U) Clear Normal Clear [facility] Comment on above: Performed By: #### 4 548-4 #### JAMIL EUGENE ([id number]) [facility] ([facility]) [address] [place] [address] Bilirubin (U) [Mass/Vol] Negative Normal NEGATIVE [facility] Comment on above: Performed By: #### 4 548-4 #### OMERO KNIGHT ([id number]) [facility] ([facility]) [address] [place], [place] [id number] Color (U) Light-Yellow Normal Light-Yellow , Yellow, Dark-Yellow [facility] Comment on above: Performed By: #### 4 548-4 #### OMERO KNIGHT ([id number]) [facility] ([facility]) [address] [place] [address] Epithelial cells.squamous Auto (Urine sed) [#/Area] 1-9 (SPARSE) Normal Reference range not established. [facility] Comment on above: Performed By: #### 4 548-4 #### OMERO KNIGHT ([id number]) [facility] ([facility]) [address] [place] [address] Glucose Auto test strip (U) [Mass/Vol] Normal Normal Normal [facility] Comment on above: Performed By: #### 4 548-4 #### OMERO KNIGHT ([id number]) [facility] ([facility]) [address] [place] [address] 24253 Ketones (U) [Mass/Vol] Negative Normal NEGATIVE [facility] Comment on above: Performed By: #### 4 548-4 #### OMERO KNIGHT ([id number]) [facility] ([facility]) [address] [place] [address] 60069 Leukocyte esterase Auto test strip Ql (U) Negative Normal NEGATIVE [facility] Comment on above: Performed By: #### 4 548-4 #### OMERO KNIGHT ([id number]) [facility] ([facility]) [address] [place] [address] 92689 Nitrite Auto test strip Ql (U) Negative Normal NEGATIVE [facility] Comment on above: Performed By: #### 4 548-4 #### OMERO KNIGHT ([id number]) [facility] ([facility]) [address] [place] [address] 61172 pH (U) 7.0 [pH] Normal 5.0, 5.5, 6.0, 6.5, 7.0, 7.5, 8.0 [facility] Comment on above: Performed By: #### 4 548-4 #### OMERO KNIGHT ([id number]) [facility] ([facility]) [address] [place] [address] 58938 Protein (U) [Mass/Vol] 20 (TRACE) Normal NEGAT JORGE, 10 (TRACE), 20 (TRACE) [facility] Comment on above: Performed By: #### 4 548-4 #### OMERO KNIGHT ([id number]) [facility] ([facility]) [address] [place] [address] 67830 RBC (U) [#/Vol] Negative Normal NEGATIVE [facility] Comment on above: Performed By: #### 4 548-4 #### OMERO KNIGHT ([id number]) [facility] ([facility]) [address] [place] [address] 83108 RBC Auto (Urine sed) [#/Area] 1-2 Normal NONE, 1-2, 3-5 [facility] Comment on above: Performed By: #### 4 548-4 #### OMERO KNIGHT ([id number]) [facility] ([facility]) [address] [place] [address] 49883 Specific gravity (U) [Rel density] 1.011 Normal 1.005-1.035 [facility] Comment on above: Performed By: #### 4 548-4 #### OMERO KNIGHT ([id number]) [facility] ([facility]) [address] [place] [address] 69969 Urobilinogen (U) [Mass/Vol] Normal Normal Normal [facility] Comment on above: Performed By: #### 4 548-4 #### OMERO KNIGHT ([id number]) [facility] ([facility]) [address] [place] [address] 60522 WBC Auto (Urine sed) [#/Area] 1-5 Normal 1-5, NONE [facility] Comment on above: Performed By: #### 4 548-4 #### OMERO KNIGHT ([id number]) [facility] ([facility]) [address] [place] [address] Vancomycinon 11-13-2023 Vancomycin [Mass/Vol] 17.5 ug/mL 5.0 - 20.0 ug/mL [facility] Vancomycin [Mass/Vol] 17.5 ug/mL Normal 5.0-20.0 [facility] Comment on above: Order Comment: Diagn osis of Diabetes-Adults Non-Diabetic: < or = 5.6% Increased risk for developing diabetes: 5.7-6.4% Diagnostic of diabetes: > or = 6.5% Monitoring of Diabetes Age (y)....................... Therapeutic Goal (%) Adults: >18.........................<7.0 Pediatrics: 13-18...................<7.5 Pediatrics: 7-12....................<8.0 Pediatrics: 0-6..................... 7.5-8.5 [place] [employer]. Diabetes Care 33(S1), Apr 2009 Performed By: #### 4 548-4 #### JAMIL EUGENE ([id number]) [facility] ([facility]) [facility] [place] [address] Vancomycin [Mass/Vol]on Interpretation and review of laboratory results Normal [facility] XR CHEST 1 VIEWon 11-13-2023 XR CHEST 1 VIEW Interpreted By: Bunny Asher and [place] Lesley STUDY: XR CHEST 1 VIEW; 11/13/2023 11:11 pm INDICATION: Signs/Symptoms:preop. COMPARISON: CT chest abdomen pelvis 11/06/2023 ACCESSION NUMBER(S): [id number] ORDERING CLINICIAN: RU SANTOS FINDINGS: AP upright [...] as stated. This study was interpreted at [facility], [place], [place]. MACRO: None Signed by: Bunny Asher 11/14/2023 7:48 AM Dictation workstation: [id number] Normal [facility] XR Chest Single viewon 11-12 Radiology Study observation (narrative) [facility] Work Phone: Basic metabolic 2000 panelon 11-12-2023 Anion gap [Moles/Vol] 11 mmol/L 10 - 2 0 mmol/L [facility] Calcium [Mass/Vol] 8.8 mg/dL 8.6 - 10. 6 mg/dL [facility] Chloride [Moles/Vol] 95 mmol/L Low 98 - 10 7 mmol/L [facility] CO2 [Moles/Vol] 34 mmol/L High 21 - 32 mmol/L [facility] Creatinine [Mass/Vol] 0.75 mg/dL 0.50 - 1.05 mg/dL [facility] GFR/1.73 sq M.predicted among non-blacks MDRD (S/P/Bld) [Vol rate/Area] 83 mL/min/{1.73_m2} - PINF [facility] Glucose [Mass/Vol] 118 mg/dL High 74 - 99 mg/dL [facility] Potassium [Moles/Vol] 3.5 mmol/L 3.5 - 5.3 mmol/L [facility] Sodium [Moles/Vol] 136 mmol/L 136 - 145 mmol/L [facility] Urea nitrogen [Mass/Vol] 13 mg/dL 6 - 23 mg/dL [facility] Anion gap [Moles/Vol] 11 mmol/L Normal 10-20 [facility] Comment on above: Performed By: #### 2 132-9 #### OMERO KNIGHT ([id number]) [facility] ([facility]) [address] [place] [address] 20052 Calcium [Mass/Vol] 8.8 mg/dL Normal 8.6-10.6 [facility] Comment on above: Performed By: #### 2 132-9 #### OMERO KNIGHT ([id number]) [facility] ([facility]) [address] [place] [address] 73600 Chloride [Moles/Vol] 95 mmol/L Low 98-107 [facility] Comment on above: Performed By: #### 2 132-9 #### OMERO KNIGHT ([id number]) [facility] ([facility]) [address] [place] [address] 38568 CO2 [Moles/Vol] 34 mmol/L High 21-32 [facility] Comment on above: Performed By: #### 2 132-9 #### OMERO KNIGHT ([id number]) [facility] ([facility]) [address] [place] [address] 18819 Creatinine [Mass/Vol] 0.75 mg/dL Normal 0.50-1.05 [facility] Comment on above: Performed By: #### 2 132-9 #### OMERO KNIGHT ([id number]) [facility] ([facility]) [address] [place] [address] 38392 Glomerular filtration rate/1.73 sq M.predicted 83 mL/min/1.73m*2 Normal >60 [facility] Comment on above: Result Comment: Calc ulations of estimated GFR are performed using the 2020 CKD-EPI Study Refit equation without the race variable for the IDMS-Traceable creatinine methods. https://jasn.asnjournals.org/content/early//ASN.71845 23369 Performed By: #### 2 132-9 #### OMERO KNIGHT ([id number]) [facility] ([facility]) [address] [place] [address] 76230 Glucose [Mass/Vol] 118 mg/dL High 74-99 [facility] Comment on above: Performed By: #### 2 132-9 #### OMERO KNIGHT ([id number]) [facility] ([facility]) [address] [place] [address] 77014 Potassium [Moles/Vol] 3.5 mmol/L Normal 3.5-5.3 [facility] Comment on above: Performed By: #### 2 132-9 #### OMERO KNIGHT ([id number]) [facility] ([facility]) [address] [place] [address] 30571 Sodium [Moles/Vol] 136 mmol/L Normal 136-145 [facility] Comment on above: Performed By: #### 2 132-9 #### OMERO KNIGHT ([id number]) [facility] ([facility]) [address] [place] [address] 33024 Urea nitrogen [Mass/Vol] 13 mg/dL Normal 6-23 [facility] Comment on above: Performed By: #### 2 132-9 #### OMERO KNIGHT ([id number]) [facility] ([facility]) [address] [place] [address] 05346 Blood type and Indirect anti body screen panel (Bld)on 11-12-2023 ABO group Nom (Bld) O [facility] Blood group antibody screen Ql Negative [facility] D Ag Ql (Bld) Positive [facility] ABO group Nom (Bld) O Normal [facility] Comment on above: Performed By: #### 2 132-9 #### OMERO KNIGHT ([id number]) [facility] ([facility]) [address] [place] [address] 13822 Blood group antibody screen Ql Negative [facility] Comment on above: Performed By: #### 2 132-9 #### OMERO KNIGHT ([id number]) [facility] ([facility]) [address] [place] [address] 54687 D Ag Ql (Bld) Positive [facility] Comment on above: Result Comment: 2nd ABO test required. Order and Collect VERAB Performed By: #### 2 132-9 #### JAMIL EUGENE ([id number]) [facility] ([facility]) [address] [place] [address] CBC W Auto Differential pane l (Bld)on 11-12-2023 Basophils (Bld) [#/Vol] 0.05 10*3/uL [facility] Basophils/100 WBC (Bld) 0.7 % 0.0 - 2.0 % [facility] Eosinophils (Bld) [#/Vol] 0.15 10*3/uL [facility] Eosinophils/100 WBC (Bld) 2.1 % 0.0 - 6.0 % [facility] Erythrocyte distribution width (RBC) [Ratio] 15.4 % High 11.5 - 14.5 % [facility] Hematocrit (Bld) [Volume fraction] 33.7 % Low 36.0 - 46.0 % [facility] Hemoglobin (Bld) [Mass/Vol] 10.8 g/dL Low 12.0 - 16.0 g/dL [facility] Immature granulocytes (Bld) [#/Vol] 0.03 10*3/uL [facility] Immature granulocytes/100 WBC (Bld) 0.4 % 0.0 - 0.9 % [facility] Interpretation and review of laboratory results Abnormal [facility] Lymphocytes (Bld) [#/Vol] 3.21 10*3/uL High [facility] Lymphocytes/100 WBC (Bld) 43.9 % 13.0 - 44.0 % [facility] MCH (RBC) [Entitic mass] 26.8 pg 26.0 - 34.0 pg [facility] MCHC (RBC) [Mass/Vol] 32.0 g/dL 32.0 - 36.0 g/dL [facility] MCV (RBC) [Entitic vol] 84 fL 80 - 100 fL [facility] Monocytes (Bld) [#/Vol] 0.66 10*3/uL [facility] Monocytes/100 WBC (Bld) 9.0 % 2.0 - 10.0 % [facility] Neutrophils (Bld) [#/Vol] 3.21 10*3/uL [facility] Neutrophils/100 WBC (Bld) 43.9 % 40.0 - 80.0 % [facility] Nucleated RBC/100 WBC (Bld) [Ratio] 0.0 % [facility] Platelets (Bld) [#/Vol] 223 10*3/uL [facility] RBC (Bld) [#/Vol] 4.03 10*6/uL [facility] WBC (Bld) [#/Vol] 7.3 10*3/uL [facility] Basophils (Bld) [#/Vol] 0.05 x10*3/uL Normal 0.00-0.10 [facility] Comment on above: Performed By: #### 2 132-9 #### OMERO KNIGHT ([id number]) [facility] ([facility]) [address] [place] [address] 34582 Basophils/100 WBC (Bld) 0.7 % Normal 0.0-2.0 [facility] Comment on above: Performed By: #### 2 132-9 #### OMERO KNIGHT ([id number]) [facility] ([facility]) [address] [place] [address] 68319 Eosinophils (Bld) [#/Vol] 0.15 x10*3/uL Normal 0.00-0.40 [facility] Comment on above: Performed By: #### 2 132-9 #### OMERO KNIGHT ([id number]) [facility] ([facility]) [address] [place] [address] 87231 Eosinophils/100 WBC (Bld) 2.1 % Normal 0.0-6.0 [facility] Comment on above: Performed By: #### 2 132-9 #### OMERO KNIGHT ([id number]) [facility] ([facility]) [address] [place] [address] 82115 Erythrocyte distribution width (RBC) [Ratio] 15.4 % High 11.5-14.5 [facility] Comment on above: Performed By: #### 2 132-9 #### OMERO KNIGHT ([id number]) [facility] ([facility]) [address] [place] [address] 87178 Hematocrit (Bld) [Volume fraction] 33.7 % Low 36.0-46.0 [facility] Comment on above: Performed By: #### 2 132-9 #### OMERO KNIGHT ([id number]) [facility] ([facility]) [address] [place] [address] 69045 Hemoglobin (Bld) [Mass/Vol] 10.8 g/dL Low 12.0-16.0 [facility] Comment on above: Performed By: #### 2 132-9 #### OMERO KNIGHT ([id number]) [facility] ([facility]) [address] [place] [address] 63907 Immature granulocytes (Bld) [#/Vol] 0.03 x10*3/uL Normal 0.00-0.50 [facility] Comment on above: Performed By: #### 2 132-9 #### OMERO KNIGHT ([id number]) [facility] ([facility]) [address] [place] [address] 10824 Immature granulocytes/100 WBC (Bld) 0.4 % Normal 0.0-0.9 [facility] Comment on above: Result Comment: Martina ture Granulocyte Count (IG) includes promyelocytes, myelocytes and metamyelocytes but does not include bands. Percent differential counts (%) should be interpreted in the context of the absolute cell counts (cells/UL). Performed By: #### 2 132-9 #### OMERO KNIGHT ([id number]) [facility] ([facility]) [address] [place] [address] 03825 Lymphocytes (Bld) [#/Vol] 3.21 x10*3/uL High 0.80-3.00 [facility] Comment on above: Performed By: #### 2 132-9 #### OMERO KNIGHT ([id number]) [facility] ([facility]) [address] [place] [address] 22622 Lymphocytes/100 WBC (Bld) 43.9 % Normal 13.0-44.0 [facility] Comment on above: Performed By: #### 2 132-9 #### OMERO KNIGHT ([id number]) [facility] ([facility]) [address] [place] [address] 32845 MCH (RBC) [Entitic mass] 26.8 pg Normal 26.0-34.0 [facility] Comment on above: Performed By: #### 2 132-9 #### OMERO KNIGHT ([id number]) [facility] ([facility]) [address] [place] [address] 69976 MCHC (RBC) [Mass/Vol] 32.0 g/dL Normal 32.0-36.0 [facility] Comment on above: Performed By: #### 2 132-9 #### OMERO KNIGHT ([id number]) [facility] ([facility]) [address] [place] [address] 62462 MCV (RBC) [Entitic vol] 84 fL Normal 80-100 [facility] Comment on above: Performed By: #### 2 132-9 #### OMERO KNIGHT ([id number]) [facility] ([facility]) [address] [place] [address] 89032 Monocytes (Bld) [#/Vol] 0.66 x10*3/uL Normal 0.05-0.80 [facility] Comment on above: Performed By: #### 2 132-9 #### OMERO KNIGHT ([id number]) [facility] ([facility]) [address] [place] [address] 91011 Monocytes/100 WBC (Bld) 9.0 % Normal 2.0-10.0 [facility] Comment on above: Performed By: #### 2 132-9 #### OMERO KNIGHT ([id number]) [facility] ([facility]) [address] [place] [address] 37402 Neutrophils (Bld) [#/Vol] 3.21 x10*3/uL Normal 1.60-5.50 [facility] Comment on above: Result Comment: Perc ent differential counts (%) should be interpreted in the context of the absolute cell counts (cells/uL). Performed By: #### 2 132-9 #### OMERO KNIGHT ([id number]) [facility] ([facility]) [address] [place] [address] 90424 Neutrophils/100 WBC (Bld) 43.9 % Normal 40.0-80.0 [facility] Comment on above: Performed By: #### 2 132-9 #### OMERO KNIGHT ([id number]) [facility] ([facility]) [address] [place] [address] 49377 Nucleated RBC/100 WBC (Bld) [Ratio] 0.0 /100 WBCs Normal 0.0-0.0 [facility] Comment on above: Performed By: #### 2 132-9 #### OMERO KNIGHT ([id number]) [facility] ([facility]) [address] [place] [address] 25472 Platelets (Bld) [#/Vol] 223 x10*3/uL Normal 150-450 [facility] Comment on above: Performed By: #### 2 132-9 #### OMERO KNIGHT ([id number]) [facility] ([facility]) [address] [place] [address] 19448 RBC (Bld) [#/Vol] 4.03 x10*6/uL Normal 4.00-5.20 [facility] Comment on above: Performed By: #### 2 132-9 #### OMERO KNIGHT ([id number]) [facility] ([facility]) [address] [place] [address] 26783 WBC (Bld) [#/Vol] 7.3 x10*3/uL Normal 4.4-11.3 [facility] Comment on above: Performed By: #### 2 132-9 #### OMERO KNIGHT ([id number]) [facility] ([facility]) [address] [place] [address] 70959 Glucose Test strip manual (B ld) [Mass/Vol]on 11-12-2023 Glucose [Mass/Vol] 110 mg/dL High 74 - 99 mg/dL [facility] Interpretation and review of laboratory results Abnormal [facility] Glucose [Mass/Vol] 110 mg/dL High 74-99 [facility] Comment on above: Performed By: #### 4 548-4 #### OMERO KNIGHT ([id number]) [facility] ([facility]) [address] [place] [address] 27010 Glucose [Mass/Vol] 141 mg/dL High 74 - 99 mg/dL [facility] Interpretation and review of laboratory results Abnormal [facility] Glucose [Mass/Vol] 141 mg/dL High 74-99 [facility] Comment on above: Performed By: #### 4 548-4 #### OMERO KNIGHT ([id number]) [facility] ([facility]) [address] [place] [address] 70646 Glucose [Mass/Vol] 127 mg/dL High 74 - 99 mg/dL [facility] Interpretation and review of laboratory results Abnormal [facility] Glucose [Mass/Vol] 127 mg/dL High 74-99 [facility] Comment on above: Performed By: #### 2 132-9 #### OMERO KNIGHT ([id number]) [facility] ([facility]) [address] [place] [address] 54258 Glucose [Mass/Vol] 133 mg/dL High 74 - 99 mg/dL [facility] Interpretation and review of laboratory results Abnormal [facility] Glucose [Mass/Vol] 133 mg/dL High 74-99 [facility] Comment on above: Performed By: #### 2 132-9 #### OMERO KNIGHT ([id number]) [facility] ([facility]) [address] [place] [address] 94536 Hepatic function 2000 panelo n 11-12-2023 Albumin BCP dye [Mass/Vol] 2.8 g/dL Low 3.4 - 5.0 g/dL [facility] ALP [Catalytic activity/Vol] 143 U/L High 33 - 136 U/L [facility] ALT With P-5'-P [Catalytic activity/Vol] 8 U/L 7 - 45 U/L [facility] AST With P-5'-P [Catalytic activity/Vol] 17 U/L 9 - 39 U/L [facility] Bilirubin [Mass/Vol] 0.3 mg/dL 0.0 - 1 .2 mg/dL [facility] Bilirubin.direct [Mass/Vol] 0.1 mg/dL 0.0 - 0.3 mg/dL [facility] Protein [Mass/Vol] 6.0 g/dL Low 6.4 - 8.2 g/dL [facility] Albumin BCP dye [Mass/Vol] 2.8 g/dL Low 3.4-5.0 [facility] Comment on above: Performed By: #### 2 132-9 #### OMERO KNIGHT ([id number]) [facility] ([facility]) [address] [place] [address] 17628 ALP [Catalytic activity/Vol] 143 U/L High 33-136 [facility] Comment on above: Performed By: #### 2 132-9 #### OMERO KNIGHT ([id number]) [facility] ([facility]) [address] [place] [address] 95821 ALT With P-5'-P [Catalytic activity/Vol] 8 U/L Normal 7-45 [facility] Comment on above: Result Comment: Madhavi ents treated with Sulfasalazine may generate falsely decreased results for ALT. Performed By: #### 2 132-9 #### OMERO KNIGHT ([id number]) [facility] ([facility]) [address] [place] [address] 43003 AST With P-5'-P [Catalytic activity/Vol] 17 U/L Normal 9-39 [facility] Comment on above: Performed By: #### 2 132-9 #### OMERO KNIGHT ([id number]) [facility] ([facility]) [address] [place] [address] 14752 Bilirubin [Mass/Vol] 0.3 mg/dL Normal 0.0-1.2 [facility] Comment on above: Performed By: #### 2 132-9 #### OMERO KNIGHT ([id number]) [facility] ([facility]) [address] [place] [address] 42504 Bilirubin.direct [Mass/Vol] 0.1 mg/dL Normal 0.0-0.3 [facility] Comment on above: Performed By: #### 2 132-9 #### OMERO KNIGHT ([id number]) [facility] ([facility]) [address] [id number] Protein [Mass/Vol] 6.0 g/dL Low 6.4-8.2 [facility] Comment on above: Performed By: #### 2 132-9 #### OMERO KNIGHT ([id number]) [facility] ([facility]) [address] [place] [address] 86149 Magnesiumon 11-12-2023 Magnesium [Mass/Vol] 1.85 mg/dL 1.60 - 2.40 mg/dL [facility] Magnesium [Mass/Vol] 1.85 mg/dL Normal 1.60-2.40 [facility] Comment on above: Performed By: #### 2 132-9 #### OMERO KNIGHT ([id number]) [facility] ([facility]) [address] [place] [address] No Panel Informationon 11-11 Interpretation and review of laboratory results Abnormal [facility] Interpretation and review of laboratory results Normal [facility] PT and aPTT panel Coag (PPP) on 11-12-2023 aPTT Coag (PPP) [Time] 34 s Un [facility] INR Coag (PPP) [Relative time] 1.1 {INR} 0.9 - 1.1 [facility] Interpretation and review of laboratory results Normal [facility] PT Coag (PPP) [Time] 12.5 s [facility] aPTT Coag (PPP) [Time] 34 s Normal 27-38 [facility] Comment on above: Order Comment: The A PTT is no longer used for monitoring Unfractionated Heparin Therapy. For monitoring Heparin Therapy, use the Heparin Assay. Performed By: #### 2 132-9 #### OMERO KNIGHT ([id number]) [facility] ([facility]) [address] [place], [place] [id number] INR Coag (PPP) [Relative time] 1.1 Normal 0.9-1.1 [facility] Comment on above: Order Comment: The A PTT is no longer used for monitoring Unfractionated Heparin Therapy. For monitoring Heparin Therapy, use the Heparin Assay. Performed By: #### 2 132-9 #### OMERO KNIGHT ([id number]) [facility] ([facility]) [address] [place] [address] 33261 PT Coag (PPP) [Time] 12.5 s Normal 9.8-12.8 [facility] Comment on above: Order Comment: The A PTT is no longer used for monitoring Unfractionated Heparin Therapy. For monitoring Heparin Therapy, use the Heparin Assay. Performed By: #### 2 132-9 #### OMERO KNIGHT ([id number]) [facility] ([facility]) [facility] [place] [address] Phosphateon 11-12-2023 Phosphate [Mass/Vol] 2.5 mg/dL Normal 2.5-4.9 [facility] Comment on above: Result Comment: The performance characteristics of phosphorus testing in heparinized plasma have been validated by the individual laboratory site where testing is performed. Testing on heparinized plasma is not approved by the FDA; however, such approval is not necessary. Performed By: #### 2 132-9 #### OMERO KNIGHT ([id number]) [facility] ([facility]) [facility] [place] [address] Phosphoruson 11-12-2023 Phosphate [Mass/Vol] 2.5 mg/dL 2.5 - 4 .9 mg/dL [facility] CBC W Auto Differential pane l (Bld)on 11-11-2023 Basophils (Bld) [#/Vol] 0.03 10*3/uL [facility] Basophils/100 WBC (Bld) 0.5 % 0.0 - 2.0 % [facility] Eosinophils (Bld) [#/Vol] 0.15 10*3/uL [facility] Eosinophils/100 WBC (Bld) 2.3 % 0.0 - 6.0 % [facility] Erythrocyte distribution width (RBC) [Ratio] 15.4 % High 11.5 - 14.5 % [facility] Hematocrit (Bld) [Volume fraction] 33.4 % Low 36.0 - 46.0 % [facility] Hemoglobin (Bld) [Mass/Vol] 10.6 g/dL Low 12.0 - 16.0 g/dL [facility] Immature granulocytes (Bld) [#/Vol] 0.02 10*3/uL [facility] Immature granulocytes/100 WBC (Bld) 0.3 % 0.0 - 0.9 % [facility] Interpretation and review of laboratory results Abnormal [facility] Lymphocytes (Bld) [#/Vol] 2.41 10*3/uL [facility] Lymphocytes/100 WBC (Bld) 37.4 % 13.0 - 44.0 % [facility] MCH (RBC) [Entitic mass] 26.6 pg 26.0 - 34.0 pg [facility] MCHC (RBC) [Mass/Vol] 31.7 g/dL Low 32.0 - 36.0 g/dL [facility] MCV (RBC) [Entitic vol] 84 fL 80 - 100 fL [facility] Monocytes (Bld) [#/Vol] 0.56 10*3/uL [facility] Monocytes/100 WBC (Bld) 8.7 % 2.0 - 10.0 % [facility] Neutrophils (Bld) [#/Vol] 3.28 10*3/uL [facility] Neutrophils/100 WBC (Bld) 50.8 % 40.0 - 80.0 % [facility] Nucleated RBC/100 WBC (Bld) [Ratio] 0.0 % [facility] Platelets (Bld) [#/Vol] 219 10*3/uL [facility] RBC (Bld) [#/Vol] 3.98 10*6/uL Low [facility] WBC (Bld) [#/Vol] 6.5 10*3/uL [facility] Basophils (Bld) [#/Vol] 0.03 x10*3/uL Normal 0.00-0.10 [facility] Comment on above: Performed By: #### 2 4331-1 #### JAMIL EUGENE ([id number]) [facility] ([facility]) [address] [place] [address] 72010 Basophils/100 WBC (Bld) 0.5 % Normal 0.0-2.0 [facility] Comment on above: Performed By: #### 2 4331-1 #### OMERO KNIGHT ([id number]) [facility] ([facility]) [address] [place] [address] 81622 Eosinophils (Bld) [#/Vol] 0.15 x10*3/uL Normal 0.00-0.40 [facility] Comment on above: Performed By: #### 2 4331-1 #### OMERO KNIGHT ([id number]) [facility] ([facility]) [address] [place] [address] 96133 Eosinophils/100 WBC (Bld) 2.3 % Normal 0.0-6.0 [facility] Comment on above: Performed By: #### 2 4331-1 #### OMERO KNIGHT ([id number]) [facility] ([facility]) [address] [place] [address] 57998 Erythrocyte distribution width (RBC) [Ratio] 15.4 % High 11.5-14.5 [facility] Comment on above: Performed By: #### 2 4331-1 #### OMERO KNIGHT ([id number]) [facility] ([facility]) [address] [place] [address] 30189 Hematocrit (Bld) [Volume fraction] 33.4 % Low 36.0-46.0 [facility] Comment on above: Performed By: #### 2 4331-1 #### OMERO KNIGHT ([id number]) [facility] ([facility]) [address] [place] [address] 26381 Hemoglobin (Bld) [Mass/Vol] 10.6 g/dL Low 12.0-16.0 [facility] Comment on above: Performed By: #### 2 4331-1 #### OMERO KNIGHT ([id number]) [facility] ([facility]) [address] [place] [address] 63165 Immature granulocytes (Bld) [#/Vol] 0.02 x10*3/uL Normal 0.00-0.50 [facility] Comment on above: Performed By: #### 2 4331-1 #### OMERO KNIGHT ([id number]) [facility] ([facility]) [facility] [place] [address] Immature granulocytes/100 WBC (Bld) 0.3 % Normal 0.0-0.9 [facility] Comment on above: Result Comment: Martina ture Granulocyte Count (IG) includes promyelocytes, myelocytes and metamyelocytes but does not include bands. Percent differential counts (%) should be interpreted in the context of the absolute cell counts (cells/UL). Performed By: #### 2 4331-1 #### OMERO KNIGHT ([id number]) [facility] ([facility]) [address] [place] [address] 69780 Lymphocytes (Bld) [#/Vol] 2.41 x10*3/uL Normal 0.80-3.00 [facility] Comment on above: Performed By: #### 2 4331-1 #### OMERO KNIGHT ([id number]) [facility] ([facility]) [address] [place] [address] 35069 Lymphocytes/100 WBC (Bld) 37.4 % Normal 13.0-44.0 [facility] Comment on above: Performed By: #### 2 4331-1 #### OMERO KNIGHT ([id number]) [facility] ([facility]) [address] [place] [address] 50736 MCH (RBC) [Entitic mass] 26.6 pg Normal 26.0-34.0 [facility] Comment on above: Performed By: #### 2 4331-1 #### OMERO KNIGHT ([id number]) [facility] ([facility]) [address] [place] [address] 08140 MCHC (RBC) [Mass/Vol] 31.7 g/dL Low 32.0-36.0 [facility] Comment on above: Performed By: #### 2 4331-1 #### OMERO KNIGHT ([id number]) [facility] ([facility]) [address] [place] [address] 25940 MCV (RBC) [Entitic vol] 84 fL Normal 80-100 [facility] Comment on above: Performed By: #### 2 4331-1 #### OMERO KNIGHT ([id number]) [facility] ([facility]) [address] [place] [address] 45160 Monocytes (Bld) [#/Vol] 0.56 x10*3/uL Normal 0.05-0.80 [facility] Comment on above: Performed By: #### 2 4331-1 #### OMERO KNIGHT ([id number]) [facility] ([facility]) [address] [place] [address] 04739 Monocytes/100 WBC (Bld) 8.7 % Normal 2.0-10.0 [facility] Comment on above: Performed By: #### 2 4331-1 #### OMERO KNIGHT ([id number]) [facility] ([facility]) [address] [place] [address] 20331 Neutrophils (Bld) [#/Vol] 3.28 x10*3/uL Normal 1.60-5.50 [facility] Comment on above: Result Comment: Perc ent differential counts (%) should be interpreted in the context of the absolute cell counts (cells/uL). Performed By: #### 2 4331-1 #### OMERO KNIGHT ([id number]) [facility] ([facility]) [address] [place] [address] 75714 Neutrophils/100 WBC (Bld) 50.8 % Normal 40.0-80.0 [facility] Comment on above: Performed By: #### 2 4331-1 #### OMERO KNIGHT ([id number]) [facility] ([facility]) [address] [place] [address] 76910 Nucleated RBC/100 WBC (Bld) [Ratio] 0.0 /100 WBCs Normal 0.0-0.0 [facility] Comment on above: Performed By: #### 2 4331-1 #### OMERO KNIGHT ([id number]) [facility] ([facility]) [address] [place] [address] 38853 Platelets (Bld) [#/Vol] 219 x10*3/uL Normal 150-450 [facility] Comment on above: Performed By: #### 2 4331-1 #### OMERO KNIGHT ([id number]) [facility] ([facility]) [address] [place] [address] 63097 RBC (Bld) [#/Vol] 3.98 x10*6/uL Low 4.00-5.20 [facility] Comment on above: Performed By: #### 2 4331-1 #### OMERO KNIGHT ([id number]) [facility] ([facility]) [address] [place] [address] 04769 WBC (Bld) [#/Vol] 6.5 x10*3/uL Normal 4.4-11.3 [facility] Comment on above: Performed By: #### 2 4331-1 #### OMERO KNIGHT ([id number]) [facility] ([facility]) [address] [place] [address] 17251 Glucose Test strip manual (B ld) [Mass/Vol]on 11-11-2023 Glucose [Mass/Vol] 132 mg/dL High 74 - 99 mg/dL [facility] Interpretation and review of laboratory results Abnormal [facility] Glucose [Mass/Vol] 132 mg/dL High 74-99 [facility] Comment on above: Performed By: #### 2 132-9 #### OMERO KNIGHT ([id number]) [facility] ([facility]) [address] [place] [address] 84716 Glucose [Mass/Vol] 139 mg/dL High 74 - 99 mg/dL [facility] Interpretation and review of laboratory results Abnormal [facility] Glucose [Mass/Vol] 139 mg/dL High 74-99 [facility] Comment on above: Performed By: #### 2 4331-1 #### OMERO KNIGHT ([id number]) [facility] ([facility]) [address] [place] [address] 10329 Glucose [Mass/Vol] 164 mg/dL High 74 - 99 mg/dL [facility] Interpretation and review of laboratory results Abnormal [facility] Glucose [Mass/Vol] 164 mg/dL High 74-99 [facility] Comment on above: Performed By: #### 2 4331-1 #### OMERO KNIGHT ([id number]) [facility] ([facility]) [address] [place] [address] Glucose [Mass/Vol] 119 mg/dL High 74 - 99 mg/dL [facility] Interpretation and review of laboratory results Abnormal [facility] Glucose [Mass/Vol] 119 mg/dL High 74-99 [facility] Comment on above: Performed By: #### 2 4331-1 #### OMERO KNIGHT ([id number]) [facility] ([facility]) [address] [place] [address] Magnesiumon 11-11-2023 Magnesium [Mass/Vol] 2.22 mg/dL 1.60 - 2.40 mg/dL [facility] Magnesium [Mass/Vol] 2.22 mg/dL Normal 1.60-2.40 [facility] Comment on above: Performed By: #### 2 4331-1 #### OMERO KNIGHT ([id number]) [facility] ([facility]) [address] [place] [address] Magnesium [Mass/Vol] 1.41 mg/dL Low 1.60 - 2.40 mg/dL [facility] Magnesium [Mass/Vol] 1.41 mg/dL Low 1.60-2.40 [facility] Comment on above: Performed By: #### 2 4331-1 #### OMERO KNIGHT ([id number]) [facility] ([facility]) [address] [place] [address] 90292 Magnesium [Mass/Vol]on 11-10 Interpretation and review of laboratory results Normal [facility] No Panel Informationon 11-10 [facility] Interpretation and review of laboratory results Abnormal [facility] Renal function 2000 panelon 11-11-2023 Albumin BCP dye [Mass/Vol] 2.6 g/dL Low 3.4 - 5.0 g/dL [facility] Anion gap [Moles/Vol] 10 mmol/L 10 - 2 0 mmol/L [facility] Calcium [Mass/Vol] 8.3 mg/dL Low 8.6 - 10. 6 mg/dL [facility] Chloride [Moles/Vol] 93 mmol/L Low 98 - 10 7 mmol/L [facility] CO2 [Moles/Vol] 35 mmol/L High 21 - 32 mmol/L [facility] Creatinine [Mass/Vol] 0.79 mg/dL 0.50 - 1.05 mg/dL [facility] GFR/1.73 sq M.predicted among non-blacks MDRD (S/P/Bld) [Vol rate/Area] 78 mL/min/{1.73_m2} - PINF [facility] Glucose [Mass/Vol] 166 mg/dL High 74 - 99 mg/dL [facility] Interpretation and review of laboratory results Abnormal [facility] Phosphate [Mass/Vol] 2.0 mg/dL Low 2.5 - 4 .9 mg/dL [facility] Potassium [Moles/Vol] 4.1 mmol/L 3.5 - 5.3 mmol/L [facility] Sodium [Moles/Vol] 134 mmol/L Low 136 - 145 mmol/L [facility] Urea nitrogen [Mass/Vol] 14 mg/dL 6 - 23 mg/dL [facility] Albumin BCP dye [Mass/Vol] 2.6 g/dL Low 3.4-5.0 [facility] Comment on above: Performed By: #### 2 4331-1 #### OMERO KNIGHT ([id number]) [facility] ([facility]) [address] [place] [address] 82478 Anion gap [Moles/Vol] 10 mmol/L Normal 10-20 [facility] Comment on above: Performed By: #### 2 4331-1 #### OMERO KNIGHT ([id number]) [facility] ([facility]) [address] [place] [address] 48697 Calcium [Mass/Vol] 8.3 mg/dL Low 8.6-10.6 [facility] Comment on above: Performed By: #### 2 4331-1 #### OMEOR KNIGHT ([id number]) [facility] ([facility]) [address] [place] [address] 24863 Chloride [Moles/Vol] 93 mmol/L Low 98-107 [facility] Comment on above: Performed By: #### 2 4331-1 #### OMERO KNIGHT ([id number]) [facility] ([facility]) [address] [place] [address] CO2 [Moles/Vol] 35 mmol/L High 21-32 [facility] Comment on above: Performed By: #### 2 4331-1 #### OMERO KNIGHT ([id number]) [facility] ([facility]) [facility] [place] [address] Creatinine [Mass/Vol] 0.79 mg/dL Normal 0.50-1.05 [facility] Comment on above: Performed By: #### 2 4331-1 #### OMERO KNIGHT ([id number]) [facility] ([facility]) [address] [place] [address] 58110 Glomerular filtration rate/1.73 sq M.predicted 78 mL/min/1.73m*2 Normal >60 [facility] Comment on above: Result Comment: Calc ulations of estimated GFR are performed using the 2020 CKD-EPI Study Refit equation without the race variable for the IDMS-Traceable creatinine methods. https://jasn.asnjournals.org/content/early//ASN.48265 48308 Performed By: #### 2 4331-1 #### OMERO KNIGHT ([id number]) [facility] ([facility]) [address] [place] [address] 31289 Glucose [Mass/Vol] 166 mg/dL High 74-99 [facility] Comment on above: Performed By: #### 2 4331-1 #### OMERO KNIGHT ([id number]) [facility] ([facility]) [address] [place] [address] 89211 Phosphate [Mass/Vol] 2.0 mg/dL Low 2.5-4.9 [facility] Comment on above: Result Comment: The performance characteristics of phosphorus testing in heparinized plasma have been validated by the individual laboratory site where testing is performed. Testing on heparinized plasma is not approved by the FDA; however, such approval is not necessary. Performed By: #### 2 4331-1 #### OMERO KNIGHT ([id number]) [facility] ([facility]) [facility] [place] [address] Potassium [Moles/Vol] 4.1 mmol/L Normal 3.5-5.3 [facility] Comment on above: Performed By: #### 2 4331-1 #### OMERO KNIGHT ([id number]) [facility] ([facility]) [address] [place] [address] Sodium [Moles/Vol] 134 mmol/L Low 136-145 [facility] Comment on above: Performed By: #### 2 4331-1 #### OMERO KNIGHT ([id number]) [facility] ([facility]) [facility] [place] [address] Urea nitrogen [Mass/Vol] 14 mg/dL Normal 6-23 [facility] Comment on above: Performed By: #### 2 4331-1 #### OMERO KNIGHT ([id number]) [facility] ([facility]) [facility] [place] [address] Albumin BCP dye [Mass/Vol] 2.6 g/dL Low 3.4 - 5.0 g/dL [facility] Anion gap [Moles/Vol] 10 mmol/L 10 - 2 0 mmol/L [facility] Calcium [Mass/Vol] 8.6 mg/dL 8.6 - 10. 6 mg/dL [facility] Chloride [Moles/Vol] 95 mmol/L Low 98 - 10 7 mmol/L [facility] CO2 [Moles/Vol] 33 mmol/L High 21 - 32 mmol/L [facility] Creatinine [Mass/Vol] 0.80 mg/dL 0.50 - 1.05 mg/dL [facility] GFR/1.73 sq M.predicted among non-blacks MDRD (S/P/Bld) [Vol rate/Area] 77 mL/min/{1.73_m2} - PINF [facility] Glucose [Mass/Vol] 139 mg/dL High 74 - 99 mg/dL [facility] Phosphate [Mass/Vol] 2.7 mg/dL 2.5 - 4 .9 mg/dL [facility] Potassium [Moles/Vol] 3.0 mmol/L Low 3.5 - 5.3 mmol/L [facility] Sodium [Moles/Vol] 135 mmol/L Low 136 - 145 mmol/L [facility] Urea nitrogen [Mass/Vol] 15 mg/dL 6 - 23 mg/dL [facility] Albumin BCP dye [Mass/Vol] 2.6 g/dL Low 3.4-5.0 [facility] Comment on above: Performed By: #### 2 4331-1 #### OMERO KNIGHT ([id number]) [facility] ([facility]) [address] [place] [address] 23382 Anion gap [Moles/Vol] 10 mmol/L Normal 10-20 [facility] Comment on above: Performed By: #### 2 4331-1 #### OMERO KNIGHT ([id number]) [facility] ([facility]) [address] [place] [address] 68734 Calcium [Mass/Vol] 8.6 mg/dL Normal 8.6-10.6 [facility] Comment on above: Performed By: #### 2 4331-1 #### OMERO KNIGHT ([id number]) [facility] ([facility]) [address] [place] [address] 54424 Chloride [Moles/Vol] 95 mmol/L Low 98-107 [facility] Comment on above: Performed By: #### 2 4331-1 #### OMERO KNIGHT ([id number]) [facility] ([facility]) [address] [place] [address] 50391 CO2 [Moles/Vol] 33 mmol/L High 21-32 [facility] Comment on above: Performed By: #### 2 4331-1 #### OMERO KNIGHT ([id number]) [facility] ([facility]) [address] [place] [address] 89687 Creatinine [Mass/Vol] 0.80 mg/dL Normal 0.50-1.05 [facility] Comment on above: Performed By: #### 2 4331-1 #### OMERO KNIGHT ([id number]) [facility] ([facility]) [address] [place] [address] 65052 Glomerular filtration rate/1.73 sq M.predicted 77 mL/min/1.73m*2 Normal >60 [facility] Comment on above: Result Comment: Calc ulations of estimated GFR are performed using the 2020 CKD-EPI Study Refit equation without the race variable for the IDMS-Traceable creatinine methods. https://jasn.asnjournals.org/content/early//ASN.10530 98290 Performed By: #### 2 4331-1 #### OMERO KNIGHT ([id number]) [facility] ([facility]) [address] [place] [address] 14725 Glucose [Mass/Vol] 139 mg/dL High 74-99 [facility] Comment on above: Performed By: #### 2 4331-1 #### OMERO KNIGHT ([id number]) [facility] ([facility]) [address] [place] [address] 88156 Phosphate [Mass/Vol] 2.7 mg/dL Normal 2.5-4.9 [facility] Comment on above: Result Comment: The performance characteristics of phosphorus testing in heparinized plasma have been validated by the individual laboratory site where testing is performed. Testing on heparinized plasma is not approved by the FDA; however, such approval is not necessary. Performed By: #### 2 4331-1 #### OMERO KNIGHT ([id number]) [facility] ([facility]) [address] [place] [address] 92237 Potassium [Moles/Vol] 3.0 mmol/L Low 3.5-5.3 [facility] Comment on above: Performed By: #### 2 4331-1 #### OMERO KNIGHT ([id number]) [facility] ([facility]) [address] [place] [address] 22437 Sodium [Moles/Vol] 135 mmol/L Low 136-145 [facility] Comment on above: Performed By: #### 2 4331-1 #### OMERO KNIGHT ([id number]) [facility] ([facility]) [address] [place] [address] 98668 Urea nitrogen [Mass/Vol] 15 mg/dL Normal 6-23 [facility] Comment on above: Performed By: #### 2 4331-1 #### OMERO KNIGHT ([id number]) [facility] [facility] ([facility]) [address] [place] [address] 23680 Glucose Test strip manual (B ld) [Mass/Vol]on 11-10-2023 Glucose [Mass/Vol] 142 mg/dL High 74 - 99 mg/dL [facility] Interpretation and review of laboratory results Abnormal [facility] Glucose [Mass/Vol] 142 mg/dL High 74-99 [facility] Comment on above: Performed By: #### 2 4331-1 #### OMERO KNIGHT ([id number]) [facility] ([facility]) [address] [place] [address] 77109 Glucose [Mass/Vol] 116 mg/dL High 74 - 99 mg/dL [facility] Interpretation and review of laboratory results Abnormal [facility] Glucose [Mass/Vol] 116 mg/dL High 74-99 [facility] Comment on above: Performed By: #### 2 4331-1 #### OMERO KNIGHT ([id number]) [facility] ([facility]) [address] [place] [address] 97500 Glucose [Mass/Vol] 159 mg/dL High 74 - 99 mg/dL [facility] Interpretation and review of laboratory results Abnormal [facility] Glucose [Mass/Vol] 159 mg/dL High 74-99 [facility] Comment on above: Performed By: #### 2 4323-8 #### OMERO KNIGHT ([id number]) [facility] ([facility]) [address] [place] [address] 06054 Glucose [Mass/Vol] 170 mg/dL High 74 - 99 mg/dL [facility] Interpretation and review of laboratory results Abnormal [facility] Glucose [Mass/Vol] 170 mg/dL High 74-99 [facility] Comment on above: Performed By: #### 2 4323-8 #### OMERO KNIGHT ([id number]) [facility] ([facility]) [address] [place] [address] 57817 Glucose [Mass/Vol] 132 mg/dL High 74 - 99 mg/dL [facility] Interpretation and review of laboratory results Abnormal [facility] Glucose [Mass/Vol] 132 mg/dL High 74-99 [facility] Comment on above: Performed By: #### 2 4323-8 #### OMERO KNIGHT ([id number]) [facility] ([facility]) [address] [place], [place] [address] Vancomycinon 11-10-2023 Vancomycin [Mass/Vol] 17.6 ug/mL 5.0 - 20.0 ug/mL [facility] Vancomycin [Mass/Vol] 17.6 ug/mL Normal 5.0-20.0 [facility] Comment on above: Order Comment: Vanco mycin [...] By: #### 2 4323-8 #### OMERO KNIGHT ([id number]) [facility] ([facility]) [address] [place], [place] [address] Vancomycin [Mass/Vol]on Interpretation and review of laboratory results Normal [facility] Bacteria identifiedon 2023 Bacteria identified Cx Nom (Bld) Test: Blood Culture Specimen Source: Peripheral Venipuncture Specimen Type: Blood culture Specimen Date: 11/09/2023 1110 Result Date: 11/13/2023 1300 Result Status: Final result Abnormal: No Resulting Lab: [facility] [address] [address] CULTURE No growth at 4 days - FINAL REPORT Normal [facility] Comment on above: Performed By: #### 2 4323-8 #### JAMIL EUGENE ([id number]) [facility] ([facility]) [address] [phone] CBC W Auto Differential pane l (Bld)on 11-09-2023 Basophils (Bld) [#/Vol] 0.05 10*3/uL [facility] Basophils/100 WBC (Bld) 0.6 % 0.0 - 2.0 % [facility] Eosinophils (Bld) [#/Vol] 0.16 10*3/uL [facility] Eosinophils/100 WBC (Bld) 1.8 % 0.0 - 6.0 % [facility] Erythrocyte distribution width (RBC) [Ratio] 15.2 % High 11.5 - 14.5 % [facility] Hematocrit (Bld) [Volume fraction] 34.5 % Low 36.0 - 46.0 % [facility] Hemoglobin (Bld) [Mass/Vol] 10.8 g/dL Low 12.0 - 16.0 g/dL [facility] Immature granulocytes (Bld) [#/Vol] 0.05 10*3/uL [facility] Immature granulocytes/100 WBC (Bld) 0.6 % 0.0 - 0.9 % [facility] Interpretation and review of laboratory results Abnormal [facility] Lymphocytes (Bld) [#/Vol] 3.08 10*3/uL High [facility] Lymphocytes/100 WBC (Bld) 34.8 % 13.0 - 44.0 % [facility] MCH (RBC) [Entitic mass] 26.5 pg 26.0 - 34.0 pg [facility] MCHC (RBC) [Mass/Vol] 31.3 g/dL Low 32.0 - 36.0 g/dL [facility] MCV (RBC) [Entitic vol] 85 fL 80 - 100 fL [facility] Monocytes (Bld) [#/Vol] 0.67 10*3/uL [facility] Monocytes/100 WBC (Bld) 7.6 % 2.0 - 10.0 % [facility] Neutrophils (Bld) [#/Vol] 4.83 10*3/uL [facility] Neutrophils/100 WBC (Bld) 54.6 % 40.0 - 80.0 % [facility] Nucleated RBC/100 WBC (Bld) [Ratio] 0.0 % [facility] Platelets (Bld) [#/Vol] 263 10*3/uL [facility] RBC (Bld) [#/Vol] 4.08 10*6/uL [facility] WBC (Bld) [#/Vol] 8.8 10*3/uL [facility] Basophils (Bld) [#/Vol] 0.05 x10*3/uL Normal 0.00-0.10 [facility] Comment on above: Performed By: #### 1 9123-9 #### OMERO KNIGHT ([id number]) [facility] ([facility]) [address] [place] [address] 07603 Basophils/100 WBC (Bld) 0.6 % Normal 0.0-2.0 [facility] Comment on above: Performed By: #### 1 9123-9 #### OMERO KNIGHT ([id number]) [facility] ([facility]) [address] [place] [address] 33901 Eosinophils (Bld) [#/Vol] 0.16 x10*3/uL Normal 0.00-0.40 [facility] Comment on above: Performed By: #### 1 9123-9 #### OMERO KNIGHT ([id number]) [facility] ([facility]) [address] [place] [address] 72702 Eosinophils/100 WBC (Bld) 1.8 % Normal 0.0-6.0 [facility] Comment on above: Performed By: #### 1 9123-9 #### OMERO KNIGHT ([id number]) [facility] ([facility]) [address] [place] [address] 46795 Erythrocyte distribution width (RBC) [Ratio] 15.2 % High 11.5-14.5 [facility] Comment on above: Performed By: #### 1 9123-9 #### OMERO KNIGHT ([id number]) [facility] ([facility]) [address] [place] [address] Hematocrit (Bld) [Volume fraction] 34.5 % Low 36.0-46.0 [facility] Comment on above: Performed By: #### 1 9123-9 #### OMERO KNIGHT ([id number]) [facility] ([facility]) [address] [place] [address] Hemoglobin (Bld) [Mass/Vol] 10.8 g/dL Low 12.0-16.0 [facility] Comment on above: Performed By: #### 1 9123-9 #### OMERO KNIGHT ([id number]) [facility] ([facility]) [address] [place], [place] [address] Immature granulocytes (Bld) [#/Vol] 0.05 x10*3/uL Normal 0.00-0.50 [facility] Comment on above: Performed By: #### 1 9123-9 #### OMERO KNIGHT ([id number]) [facility] ([facility]) [address] [place], [place] [address] Immature granulocytes/100 WBC (Bld) 0.6 % Normal 0.0-0.9 [facility] Comment on above: Result Comment: Martina ture Granulocyte Count (IG) includes promyelocytes, myelocytes and metamyelocytes but does not include bands. Percent differential counts (%) should be interpreted in the context of the absolute cell counts (cells/UL). Performed By: #### 1 9123-9 #### OMERO KNIGHT ([id number]) [facility] ([facility]) [address] [place] [address] 12709 Lymphocytes (Bld) [#/Vol] 3.08 x10*3/uL High 0.80-3.00 [facility] Comment on above: Performed By: #### 1 9123-9 #### OMERO KNIGHT ([id number]) [facility] ([facility]) [address] [place] [address] 38014 Lymphocytes/100 WBC (Bld) 34.8 % Normal 13.0-44.0 [facility] Comment on above: Performed By: #### 1 9123-9 #### OMERO KNIGHT ([id number]) [facility] ([facility]) [address] [place] [address] 29060 MCH (RBC) [Entitic mass] 26.5 pg Normal 26.0-34.0 [facility] Comment on above: Performed By: #### 1 9123-9 #### OMERO KNIGHT ([id number]) [facility] ([facility]) [address] [place] [address] 67664 MCHC (RBC) [Mass/Vol] 31.3 g/dL Low 32.0-36.0 [facility] Comment on above: Performed By: #### 1 9123-9 #### OMERO KNIGHT ([id number]) [facility] ([facility]) [address] [place] [address] 32653 MCV (RBC) [Entitic vol] 85 fL Normal 80-100 [facility] Comment on above: Performed By: #### 1 9123-9 #### OMERO KNIGHT ([id number]) [facility] ([facility]) [address] [place] [address] 68018 Monocytes (Bld) [#/Vol] 0.67 x10*3/uL Normal 0.05-0.80 [facility] Comment on above: Performed By: #### 1 9123-9 #### OMERO KNIGHT ([id number]) [facility] ([facility]) [address] [place] [address] 79575 Monocytes/100 WBC (Bld) 7.6 % Normal 2.0-10.0 [facility] Comment on above: Performed By: #### 1 9123-9 #### OMERO KNIGHT ([id number]) [facility] ([facility]) [address] [place] [address] 78605 Neutrophils (Bld) [#/Vol] 4.83 x10*3/uL Normal 1.60-5.50 [facility] Comment on above: Result Comment: Perc ent differential counts (%) should be interpreted in the context of the absolute cell counts (cells/uL). Performed By: #### 1 9123-9 #### OMERO KNIGHT ([id number]) [facility] ([facility]) [address] [place] [address] 64456 Neutrophils/100 WBC (Bld) 54.6 % Normal 40.0-80.0 [facility] Comment on above: Performed By: #### 1 9123-9 #### OMERO KNIGHT ([id number]) [facility] ([facility]) [address] [place] [address] 53744 Nucleated RBC/100 WBC (Bld) [Ratio] 0.0 /100 WBCs Normal 0.0-0.0 [facility] Comment on above: Performed By: #### 1 9123-9 #### OMERO KNIGHT ([id number]) [facility] ([facility]) [address] [place] [address] 89408 Platelets (Bld) [#/Vol] 263 x10*3/uL Normal 150-450 [facility] Comment on above: Performed By: #### 1 9123-9 #### OMERO KNIGHT ([id number]) [facility] ([facility]) [address] [place] [address] 85975 RBC (Bld) [#/Vol] 4.08 x10*6/uL Normal 4.00-5.20 [facility] Comment on above: Performed By: #### 1 9123-9 #### OMERO KNIGHT ([id number]) [facility] ([facility]) [address] [place] [address] 81105 WBC (Bld) [#/Vol] 8.8 x10*3/uL Normal 4.4-11.3 [facility] Comment on above: Performed By: #### 1 9123-9 #### OMERO KNIGHT ([id number]) [facility] ([facility]) [address] [place] [address] GUIDED PERCUTANEOUS BIOPS Y BONE DEEPon 11-09-2023 CT GUIDED PERCUTANEOUS BIOPSY BONE DEEP Interpreted By: Caron Donaldson and Calo Sean-Matthew STUDY: CT-guided bone marrow biopsy; 11/13/2023 11:07 am INDICATION: Signs/Symptoms:Bone biopsy, 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 COMPARISON: MR thoracic spine and CT thoracic spine 11/06/2023. ACCESSION NUMBER(S): [id number] ORDERING CLINICIAN: RU SANTOS TECHNIQUE: INTERVENTIONALIST(S): MD [...] the interventional CT scanner bed. An initial slot service specialist image and axial noncontrast CT images of [...] Gatica MD. This study was interpreted at [place], [place]. MACRO: None Signed by: Caron Donaldson 11/14/2023 8:11 AM Dictation workstation: [id number] Normal [facility] Comment on above: Order Comment: Last xarelto dose was at [facility] on 11/07 at 9AM Comprehensive metabolic 2000 panelon 11-09-2023 Albumin BCP dye [Mass/Vol] 2.8 g/dL Low 3.4 - 5.0 g/dL [facility] ALP [Catalytic activity/Vol] 134 U/L 33 - 136 U/L [facility] ALT With P-5'-P [Catalytic activity/Vol] 12 U/L 7 - 45 U/L [facility] Anion gap [Moles/Vol] 15 mmol/L 10 - 2 0 mmol/L [facility] AST With P-5'-P [Catalytic activity/Vol] 22 U/L 9 - 39 U/L [facility] Bilirubin [Mass/Vol] 0.4 mg/dL 0.0 - 1 .2 mg/dL [facility] Calcium [Mass/Vol] 8.4 mg/dL Low 8.6 - 10. 6 mg/dL [facility] Chloride [Moles/Vol] 96 mmol/L Low 98 - 10 7 mmol/L [facility] CO2 [Moles/Vol] 25 mmol/L 21 - 32 mmol/L [facility] Creatinine [Mass/Vol] 0.80 mg/dL 0.50 - 1.05 mg/dL [facility] GFR/1.73 sq M.predicted among non-blacks MDRD (S/P/Bld) [Vol rate/Area] 77 mL/min/{1.73_m2} - PINF [facility] Glucose [Mass/Vol] 115 mg/dL High 74 - 99 mg/dL [facility] Potassium [Moles/Vol] 3.7 mmol/L 3.5 - 5.3 mmol/L [facility] Protein [Mass/Vol] 5.8 g/dL Low 6.4 - 8.2 g/dL [facility] Sodium [Moles/Vol] 132 mmol/L Low 136 - 145 mmol/L [facility] Urea nitrogen [Mass/Vol] 14 mg/dL 6 - 23 mg/dL [facility] Albumin BCP dye [Mass/Vol] 2.8 g/dL Low 3.4-5.0 [facility] Comment on above: Performed By: #### 1 9123-9 #### OMERO KNIGHT ([id number]) [facility] ([facility]) [address] [place] [address] ALP [Catalytic activity/Vol] 134 U/L Normal 33-136 [facility] Comment on above: Performed By: #### 1 9123-9 #### OMERO KNIGHT ([id number]) [facility] ([facility]) [address] [place] [address] ALT With P-5'-P [Catalytic activity/Vol] 12 U/L Normal 7-45 [facility] Comment on above: Result Comment: Madhavi ents treated with Sulfasalazine may generate falsely decreased results for ALT. Performed By: #### 1 9123-9 #### OMERO KNIGHT ([id number]) [facility] ([facility]) [facility] [place] [address] Anion gap [Moles/Vol] 15 mmol/L Normal 10-20 [facility] Comment on above: Performed By: #### 1 9123-9 #### OMERO KNIGHT ([id number]) [facility] ([facility]) [address] [place] [address] 37771 AST With P-5'-P [Catalytic activity/Vol] 22 U/L Normal 9-39 [facility] Comment on above: Performed By: #### 1 9123-9 #### OMERO KNIGHT ([id number]) [facility] ([facility]) [address] [place] [address] Bilirubin [Mass/Vol] 0.4 mg/dL Normal 0.0-1.2 [facility] Comment on above: Performed By: #### 1 9123-9 #### OMERO KNIGHT ([id number]) [facility] ([facility]) [address] [place] [address]502 Calcium [Mass/Vol] 8.4 mg/dL Low 8.6-10.6 [facility] Comment on above: Performed By: #### 1 9123-9 #### OMERO KNIGHT ([id number]) [facility] ([facility]) [address] [place] [address] 78950 Chloride [Moles/Vol] 96 mmol/L Low 98-107 [facility] Comment on above: Performed By: #### 1 9123-9 #### OMERO KNIGHT ([id number]) [facility] ([facility]) [address] [place] [address] CO2 [Moles/Vol] 25 mmol/L Normal 21-32 [facility] Comment on above: Performed By: #### 1 9123-9 #### OMERO KNIGHT ([id number]) [facility] ([facility]) [facility] [place] [address] Creatinine [Mass/Vol] 0.80 mg/dL Normal 0.50-1.05 [facility] Comment on above: Performed By: #### 1 9123-9 #### OMERO KNIGHT ([id number]) [facility] ([facility]) [address] [place] [address] 76301 Glomerular filtration rate/1.73 sq M.predicted 77 mL/min/1.73m*2 Normal >60 [facility] Comment on above: Result Comment: Calc ulations of estimated GFR are performed using the 2020 CKD-EPI Study Refit equation without the race variable for the IDMS-Traceable creatinine methods. https://jasn.asnjournals.org/content/early//ASN.14059 19741 Performed By: #### 1 9123-9 #### OMERO KNIGHT ([id number]) [facility] ([facility]) [address] [place] [address] 08177 Glucose [Mass/Vol] 115 mg/dL High 74-99 [facility] Comment on above: Performed By: #### 1 9123-9 #### OMERO KNIGHT ([id number]) [facility] ([facility]) [address] [place] [address] 89336 Potassium [Moles/Vol] 3.7 mmol/L Normal 3.5-5.3 [facility] Comment on above: Performed By: #### 1 9123-9 #### OMERO KNIGHT ([id number]) [facility] ([facility]) [address] [place] [address] 60014 Protein [Mass/Vol] 5.8 g/dL Low 6.4-8.2 [facility] Comment on above: Performed By: #### 1 9123-9 #### OMERO KNIGHT ([id number]) [facility] ([facility]) [address] [place] [address] 00080 Sodium [Moles/Vol] 132 mmol/L Low 136-145 [facility] Comment on above: Performed By: #### 1 9123-9 #### OMERO KNIGHT ([id number]) [facility] ([facility]) [address] [place] [address] 99506 Urea nitrogen [Mass/Vol] 14 mg/dL Normal 6-23 [facility] Comment on above: Performed By: #### 1 9123-9 #### OMERO KNIGHT ([id number]) [facility] ([facility]) [address] [place] [address] 62931 ECG 12-LEADon 11-09-2023 ECG 12-LEAD Ventricular Rate 73 Atrial Rate 73 P-R Interval 196 QRS Duration 106 Q-T Interval 384 QTC Calculation(Bazett) 423 P Lodi -24 R Lodi -46 T Lodi -41 QRS Count 12 Q Onset 205 P Onset 107 P Offset 148 T Offset 397 QTC Fredericia 410 Diagnosis Atrial fibrillation Left axis deviation Low voltage QRS Cannot rule out Anterior infarct , age undetermined Abnormal ECG Confirmed by Fabio Bee ([id number]) on 11/15/2023 2:34:28 PM Normal [facility] Glucose Test strip manual (B ld) [Mass/Vol]on 11-09-2023 Glucose [Mass/Vol] 140 mg/dL High 74 - 99 mg/dL [facility] Interpretation and review of laboratory results Abnormal [facility] Glucose [Mass/Vol] 140 mg/dL High 74-99 [facility] Comment on above: Performed By: #### 2 4322-8 #### OMERO KNIGHT ([id number]) [facility] ([facility]) [address] [place] [address] 91929 Glucose [Mass/Vol] 118 mg/dL High 74 - 99 mg/dL [facility] Interpretation and review of laboratory results Abnormal [facility] Glucose [Mass/Vol] 118 mg/dL High 74-99 [facility] Comment on above: Performed By: #### 2 4322-8 #### OMERO KNIGHT ([id number]) [facility] ([facility]) [address] [place] [address] 42872 Glucose [Mass/Vol] 120 mg/dL High 74 - 99 mg/dL [facility] Interpretation and review of laboratory results Abnormal [facility] Glucose [Mass/Vol] 120 mg/dL High 74-99 [facility] Comment on above: Performed By: #### 2 4322-8 #### OMERO KNIGHT ([id number]) [facility] ([facility]) [address] [place] [address] 77366 Glucose [Mass/Vol] 142 mg/dL High 74 - 99 mg/dL [facility] Interpretation and review of laboratory results Abnormal [facility] Glucose [Mass/Vol] 142 mg/dL High 74-99 [facility] Comment on above: Performed By: #### 2 432-8 #### OMERO KNIGHT ([id number]) [facility] ([facility]) [address] [place] [address] Glucose [Mass/Vol] 139 mg/dL High 74 - 99 mg/dL [facility] Interpretation and review of laboratory results Abnormal [facility] Glucose [Mass/Vol] 139 mg/dL High 74-99 [facility] Comment on above: Performed By: #### 1 9123-9 #### OMERO KNIGHT ([id number]) [facility] ([facility]) [address] [phone] Magnesiumon 11-09-2023 Magnesium [Mass/Vol] 1.30 mg/dL Low 1.60 - 2.40 mg/dL [facility] Magnesium [Mass/Vol] 1.30 mg/dL Low 1.60-2.40 [facility] Comment on above: Performed By: #### 1 9123-9 #### OMERO KNIGHT ([id number]) [facility] ([facility]) [address] [place] [address] No Panel Informationon 11-08 Interpretation and review of laboratory results Abnormal [facility] Urinalysis complete panel (U )on 11-09-2023 Appearance (U) Clear Clear [facility] Bilirubin (U) [Mass/Vol] Negative NEGATIVE [facility] Color (U) Light-Yellow Light-Yellow , Yellow, Dark-Yellow [facility] Glucose Auto test strip (U) [Mass/Vol] Normal Normal mg/dL [facility] Interpretation and review of laboratory results Normal [facility] Ketones (U) [Mass/Vol] Negative NEGAT JORGE mg/dL [facility] Leukocyte esterase Auto test strip Ql (U) Negative NEGATIVE [facility] Nitrite Auto test strip Ql (U) Negative NEGATIVE [facility] pH (U) 5.5 [pH] 5.0, 5.5, 6.0, 6.5, 7.0, 7.5, 8.0 [facility] Protein (U) [Mass/Vol] Negative NEGAT JORGE, 10 (TRACE), 20 (TRACE) mg/dL [facility] RBC (U) [#/Vol] Negative NEGATIVE [facility] Specific gravity (U) [Rel density] 1.011 1.005 - 1.035 [facility] Urobilinogen (U) [Mass/Vol] Normal Normal mg/dL [facility] Appearance (U) Clear Normal Clear [facility] Comment on above: Performed By: #### 1 9123-9 #### OMERO KNIGHT ([id number]) [facility] ([facility]) [address] [place] [address] 74632 Bilirubin (U) [Mass/Vol] Negative Normal NEGATIVE [facility] Comment on above: Performed By: #### 1 9123-9 #### OMERO KNIGHT ([id number]) [facility] ([facility]) [address] [place] [address] 73243 Color (U) Light-Yellow Normal Light-Yellow , Yellow, Dark-Yellow [facility] Comment on above: Performed By: #### 1 9123-9 #### OMERO KNIGHT ([id number]) [facility] ([facility]) [address] [place] [address] 67808 Glucose Auto test strip (U) [Mass/Vol] Normal Normal Normal [facility] Comment on above: Performed By: #### 1 9123-9 #### OMERO KNIGHT ([id number]) [facility] ([facility]) [address] [place] [address] 07048 Ketones (U) [Mass/Vol] Negative Normal NEGATIVE [facility] Comment on above: Performed By: #### 1 9123-9 #### OMERO KNIGHT ([id number]) [facility] ([facility]) [address] [place] [address] 50517 Leukocyte esterase Auto test strip Ql (U) Negative Normal NEGATIVE [facility] Comment on above: Performed By: #### 1 9123-9 #### OMERO KNIGHT ([id number]) [facility] ([facility]) [address] [place] [address] 04500 Nitrite Auto test strip Ql (U) Negative Normal NEGATIVE [facility] Comment on above: Performed By: #### 1 9123-9 #### OMERO KNIGHT ([id number]) [facility] ([facility]) [address] [place] [address] 99274 pH (U) 5.5 [pH] Normal 5.0, 5.5, 6.0, 6.5, 7.0, 7.5, 8.0 [facility] Comment on above: Performed By: #### 1 9123-9 #### OMERO KNIGHT ([id number]) [facility] ([facility]) [address] [place] [address] 49446 Protein (U) [Mass/Vol] Negative Normal NEGAT JORGE, 10 (TRACE), 20 (TRACE) [facility] Comment on above: Performed By: #### 1 9123-9 #### OMERO KNIGHT ([id number]) [facility] ([facility]) [address] [place] [address] RBC (U) [#/Vol] Negative Normal NEGATIVE [facility] Comment on above: Performed By: #### 1 9123-9 #### OMERO KNIGHT ([id number]) [facility] ([facility]) [address] [place] [address] Specific gravity (U) [Rel density] 1.011 Normal 1.005-1.035 [facility] Comment on above: Performed By: #### 1 9123-9 #### OMERO KNIGHT ([id number]) [facility] ([facility]) [address] [place] [address] 02733 Urobilinogen (U) [Mass/Vol] Normal Normal Normal [facility] Comment on above: Performed By: #### 1 9123-9 #### OMERO KNIGHT ([id number]) [facility] ([facility]) [address] [place] [address] 48401 C reactive proteinon 024 CRP [Mass/Vol] 4.29 mg/dL High <1.00 [facility] Comment on above: Performed By: #### 1 988-5 ####OMERO KNIGHT ([id number])[facility] ([facility])[address] [place], [place] [address] CBC panel Auto (Bld)on 11-07 Erythrocyte distribution width (RBC) [Ratio] 15.3 % High 11.5-14.5 [facility] Comment on above: Performed By: #### 5 8410-2 ####OMERO KNGIHT ([id number])[facility] ([facility])[address] [place] [address] 72914 Hematocrit (Bld) [Volume fraction] 33.3 % Low 36.0-46.0 [facility] Comment on above: Performed By: #### 5 8410-2 ####OMERO KNIGHT ([id number])[facility] ([facility])[address] [place] [address] 35267 Hemoglobin (Bld) [Mass/Vol] 10.3 g/dL Low 12.0-16.0 [facility] Comment on above: Performed By: #### 5 8410-2 ####OMERO KNIGHT ([id number])[facility] ([facility])[address] [place] [address] 61530 MCH (RBC) [Entitic mass] 26.5 pg Normal 26.0-34.0 [facility] Comment on above: Performed By: #### 5 8410-2 ####OMERO KNIGHT ([id number])[facility] ([facility])[address] [place] [address] 07951 MCHC (RBC) [Mass/Vol] 30.9 g/dL Low 32.0-36.0 [facility] Comment on above: Performed By: #### 5 8410-2 ####OMERO KNIGHT ([id number])[facility] ([facility])[address] [place] [address] 98140 MCV (RBC) [Entitic vol] 86 fL Normal 80-100 [facility] Comment on above: Performed By: #### 5 8410-2 ####OMERO KNIGHT ([id number])[facility] ([facility])[address] [place] [address] 80735 Nucleated RBC/100 WBC (Bld) [Ratio] 0.0 /100 WBCs Normal 0.0-0.0 [facility] Comment on above: Performed By: #### 5 8410-2 ####OMERO KNIGHT ([id number])[facility] ([facility])[address] [place] [address] 69886 Platelets (Bld) [#/Vol] 228 x10*3/uL Normal 150-450 [facility] Comment on above: Performed By: #### 5 8410-2 ####OMERO KNIGHT ([id number])[facility] ([facility])[address] [place] [address] 43782 RBC (Bld) [#/Vol] 3.88 x10*6/uL Low 4.00-5.20 [facility] Comment on above: Performed By: #### 5 8410-2 ####OMERO KNIGHT ([id number])[facility] ([facility])[address] [place] [address] 73525 WBC (Bld) [#/Vol] 7.8 x10*3/uL Normal 4.4-11.3 [facility] Comment on above: Performed By: #### 5 8410-2 ####OMERO KNIGHT ([id number])[facility] ([facility])[address] [place] [address] 11849 Creatinineon 11-08-2023 Creatinine [Mass/Vol] 0.87 mg/dL Normal 0.50-1.05 [facility] Comment on above: Performed By: #### 2 160-0 ####OMERO KNIGHT ([id number])[facility] ([facility])[address] [place] [address] 46399 Creatinine [Mass/Vol]on Glomerular filtration rate/1.73 sq M.predicted 70 mL/min/1.73m*2 Normal >60 [facility] Comment on above: Result Comment: Calc ulations of estimated GFR are performed using the 2020 CKD-EPI Study Refit equation without the race variable for the IDMS-Traceable creatinine methods. https://jasn.asnjournals.org/content//ASN79935 30185 Performed By: #### 2 160-0 ####OMERO KNIGHT ([id number])[facility] ([facility])[address] [place] [address] 90052 Glucose Test strip manual (B ld) [Mass/Vol]on 11-08-2023 Glucose [Mass/Vol] 140 mg/dL High 74-99 [facility] Comment on above: Performed By: #### 2 341-6 ####OMERO KNIGHT ([id number])[facility] ([facility])[address] [place] [address] 66689 Glucose [Mass/Vol] 111 mg/dL High 74-99 [facility] Comment on above: Performed By: #### 2 341-6 ####OMERO KNIGHT ([id number])[facility] ([facility])[address] [place] [address] 39964 Glucose [Mass/Vol] 130 mg/dL High 74-99 [facility] Comment on above: Performed By: #### 2 341-6 ####OMERO KNIGHT ([id number])[facility] ([facility])[address] [place] [address] 54070 Glucose [Mass/Vol] 109 mg/dL High [address] Comment on above: Performed By: #### 2 341-6 ####OMERO KNIGHT ([id number])[facility] ([facility])[address] [place] [address] 15136 Natriuretic peptide B [Mass/ Vol]on 11-08-2023 Natriuretic peptide B (Bld) [Mass/Vol] 484 pg/mL High 0-99 [facility] Comment on above: Order Comment: <100 pg/mL - Heart failure [id number] pg/mL - Intermediate probability of acute heart failure exacerbation. Correlate with clinical context and patient history. >=300 pg/mL - Heart Failure likely. Correlate with clinical context and patient history.BNP testing is performed using different testing methodology at [facility] than at other [facility]. Direct result comparisons should only be made within the same method. Performed By: #### 3 0934-4 ####OMERO KNIGHT ([id number])[facility] ([facility] [place] [address] Vancomycinon 11-08-2023 Vancomycin [Mass/Vol] 20.3 ug/mL High 5.0-20.0 [facility] Comment on above: Order Comment: Vanco mycin [...] Performed By: #### 2 0578-1 ####OMERO KNIGHT ([id number])[facility] ([facility])[address] [place] [address] Basic metabolic 2000 panelon 11-07-2023 Anion gap [Moles/Vol] 10 mmol/L Normal 10-20 [facility] Comment on above: Performed By: #### 3 0934-4 #### OMERO KNIGHT ([id number]) [facility] ([facility]) [address] [place] [address] 52289 Calcium [Mass/Vol] 8.1 mg/dL Low 8.6-10.3 [facility] Comment on above: Performed By: #### 3 0934-4 #### OMERO KNIGHT ([id number]) [facility] ([facility]) [facility] [place] [address] Chloride [Moles/Vol] 100 mmol/L Normal 98-107 [facility] Comment on above: Performed By: #### 3 0934-4 #### OMERO KNIGHT ([id number]) [facility] ([facility]) [facility] [place] [address] CO2 [Moles/Vol] 26 mmol/L Normal 21-32 [facility] Comment on above: Performed By: #### 3 0934-4 #### OMERO KNIGHT ([id number]) [facility] ([facility]) [facility] [place] [address] Creatinine [Mass/Vol] 0.92 mg/dL Normal 0.50-1.05 [facility] Comment on above: Performed By: #### 3 0934-4 #### OMERO KNIGHT ([id number]) [facility] ([facility]) [address] [place] [address] 20274 Glomerular filtration rate/1.73 sq M.predicted 65 mL/min/1.73m*2 Normal >60 [facility] Comment on above: Result Comment: Calc ulations of estimated GFR are performed using the 2020 CKD-EPI Study Refit equation without the race variable for the IDMS-Traceable creatinine methods. https://jasn.asnjournals.org/content/early//ASN.78318 30449 Performed By: #### 3 0934-4 #### OMERO KNIGHT ([id number]) [facility] ([facility]) [address] [place] [address] 60868 Glucose [Mass/Vol] 116 mg/dL High 74-99 [facility] Comment on above: Performed By: #### 3 0934-4 #### OMERO KNIGHT ([id number]) [facility] ([facility]) [address] [place] [address] 87076 Potassium [Moles/Vol] 3.4 mmol/L Low 3.5-5.3 [facility] Comment on above: Performed By: #### 3 0934-4 #### OMERO KNIGHT ([id number]) [facility] ([facility]) [address] [place] [address] 03543 Sodium [Moles/Vol] 133 mmol/L Low 136-145 [facility] Comment on above: Performed By: #### 3 0934-4 #### OMERO KNIGHT ([id number]) [facility] ([facility]) [address] [place] [address] 95848 Urea nitrogen [Mass/Vol] 21 mg/dL Normal 6-23 [facility] Comment on above: Performed By: #### 3 34-4 #### OMERO KNIGHT ([id number]) [facility] ([facility]) [address] [place] [address] CBC panel Auto (Bld)on 11-06 Erythrocyte distribution width (RBC) [Ratio] 15.6 % High 11.5-14.5 [facility] Comment on above: Performed By: #### 3 34-4 #### OMERO KNIGHT ([id number]) [facility] ([facility]) [address] [place] [address] Hematocrit (Bld) [Volume fraction] 32.4 % Low 36.0-46.0 [facility] Comment on above: Performed By: #### 3 34-4 #### OMERO KNIGHT ([id number]) [facility] ([facility]) [address] [place] [address] Hemoglobin (Bld) [Mass/Vol] 9.9 g/dL Low 12.0-16.0 [facility] Comment on above: Performed By: #### 3 34-4 #### OMERO KNIGHT ([id number]) [facility] ([facility]) [address] [place], [place] [address] MCH (RBC) [Entitic mass] 26.6 pg Normal 26.0-34.0 [facility] Comment on above: Performed By: #### 3 34-4 #### OMERO KNIGHT ([id number]) [facility] ([facility]) [address] [place], [place] [address] MCHC (RBC) [Mass/Vol] 30.6 g/dL Low 32.0-36.0 [facility] Comment on above: Performed By: #### 3 34-4 #### OMERO KNIGHT ([id number]) [facility] ([facility]) [address] [place] [address] 95528 MCV (RBC) [Entitic vol] 87 fL Normal 80-100 [facility] Comment on above: Performed By: #### 3 34-4 #### OMERO KNIGHT (40694) [facility] ([facility]) [address] [place] [address] 23400 Nucleated RBC/100 WBC (Bld) [Ratio] 0.0 /100 WBCs Normal 0.0-0.0 [facility] Comment on above: Performed By: #### 3 34-4 #### OMERO KNIGHT ([id number]) [facility] ([facility]) [address] [place] [address] 48039 Platelets (Bld) [#/Vol] 246 x10*3/uL Normal 150-450 [facility] Comment on above: Performed By: #### 3 34-4 #### OMERO KNIGHT ([id number]) [facility] ([facility]) [address] [place] [address] 53472 RBC (Bld) [#/Vol] 3.72 x10*6/uL Low 4.00-5.20 [facility] Comment on above: Performed By: #### 3 34-4 #### OMERO KNIGHT ([id number]) [facility] ([facility]) [address] [place] [address] 39543 WBC (Bld) [#/Vol] 7.8 x10*3/uL Normal 4.4-11.3 [facility] Comment on above: Performed By: #### 3 34-4 #### OMERO KNIGHT ([id number]) [facility] ([facility]) [address] [place] [address] 79809 Glucose Test strip manual (B ld) [Mass/Vol]on 11-07-2023 Glucose [Mass/Vol] 124 mg/dL High 74-99 [facility] Comment on above: Performed By: #### 3 34-4 #### OMERO KNIGHT ([id number]) [facility] ([facility]) [address] [place] [address] 37488 Glucose [Mass/Vol] 108 mg/dL High 74-99 [facility] Comment on above: Performed By: #### 3 34-4 #### OMERO KNIGHT ([id number]) [facility] ([facility]) [address] [place] [address] Glucose [Mass/Vol] 134 mg/dL High 74-99 [facility] Comment on above: Performed By: #### 3 0934-4 #### OMERO KNIGHT ([id number]) [facility] ([facility]) [facility] [place] [address] Glucose [Mass/Vol] 104 mg/dL High 74-99 [facility] Comment on above: Result Comment: RN/M D NOTIFIED Performed By: #### 3 0934-4 #### OMERO KNIGHT ([id number]) [facility] ([facility]) [address] [place] [address] 94941 Vancomycinon 11-07-2023 Vancomycin [Mass/Vol] 8.5 ug/mL Normal 5.0-20.0 [facility] Comment on above: Order Comment: <100 pg/mL - Heart failure unlikely 100-299 pg/mL - Intermediate probability of acute heart failure exacerbation. Correlate with clinical context and patient history. >=300 pg/mL - Heart Failure likely. Correlate with clinical context and patient history. BNP testing is performed using different testing methodology at [facility] than at [facility]. Direct result comparisons should only be made within the same method. Performed By: #### 3 0934-4 #### OMERO KNIGHT ([id number]) [facility] ([facility]) [address] [place] [address] 15260 Bacteria identifiedon 2023 Bacteria identified Cx Nom (Bld) Test: Blood Culture Specimen Source: Peripheral Venipuncture Specimen Type: Blood culture Specimen Date: 11/06/2023 07 Result Date: 11/10/2023 1201 Result Status: Final result Abnormal: No Resulting Lab: [facility] [address] [facility] [address] CULTURE No growth at 4 days - FINAL REPORT [facility] Comment on above: Performed By: #### 2 4321-2 ###Chuyita KNIGHT ([id number]) [facility] ([facility]) [address] [place] [address] Bacteria identified Cx Nom (Bld) Test: Blood Culture Specimen Source: Peripheral Venipuncture Specimen Type: Blood culture Specimen Date: 11/06/202316 Result Date: 11/10/2023 1201 Result Status: Final result Abnormal: No Resulting Lab: [facility] [address] [place] [address] CULTURE No growth at 4 days - FINAL REPORT Normal [facility] Comment on above: Performed By: #### 2 4321-2 #### OMERO KNIGHT ([id number]) [facility] ([facility]) [address] [place] [address] Bacteria identified Cx Nom (U) Test: Urine Culture Specimen Source: Clean Catch/Voided Specimen Type: Urine Specimen Date: 11/06/2023 05 Result Date: 11/07/2023 0836 Result Status: Final result Abnormal: Yes Resulting Lab: [facility] [id number] [place] [address] CULTURE Multiple organisms present, probable contamination. Repeat culture if clinically indicated. (Abnormal) Abnormal [facility] Comment on above: Performed By: #### 3 0934-4 #### OMERO KNIGHT ([id number]) [facility] ([facility]) [address] [place] [address] CBC W Auto Differential pane l (Bld)on 11-06-2023 Basophils (Bld) [#/Vol] 0.04 x10*3/uL Normal 0.00-0.10 [facility] Comment on above: Performed By: #### 8 9577-1 #### OMERO KNIGHT (59754) [facility] ([facility]) [address] [place] [address] Basophils/100 WBC (Bld) 0.4 % Normal 0.0-2.0 [facility] Comment on above: Performed By: #### 8 9577-1 #### OMERO KNIGHT ([id number]) [facility] ([facility]) [address] [place], [place] [address] Eosinophils (Bld) [#/Vol] 0.09 x10*3/uL Normal 0.00-0.40 [facility] Comment on above: Performed By: #### 8 9577-1 #### OMERO KNIGHT ([id number]) [facility] ([facility]) [address] [place], [place] [address] Eosinophils/100 WBC (Bld) 0.8 % Normal 0.0-6.0 [facility] Comment on above: Performed By: #### 8 9577-1 #### OMERO KNIGHT ([id number]) [facility] ([facility]) [address] [place] [address] Erythrocyte distribution width (RBC) [Ratio] 15.3 % High 11.5-14.5 [facility] Comment on above: Performed By: #### 8 9577-1 #### OMERO KNIGHT ([id number]) [facility] ([facility]) [address] [place] [address] Hematocrit (Bld) [Volume fraction] 37.0 % Normal 36.0-46.0 [facility] Comment on above: Performed By: #### 8 9577-1 #### OMERO KNIGHT ([id number]) [facility] ([facility]) [address] [place] [address] Hemoglobin (Bld) [Mass/Vol] 11.6 g/dL Low 12.0-16.0 [facility] Comment on above: Performed By: #### 8 9577-1 #### OMERO KNIGHT ([id number]) [facility] ([facility]) [address] [place], [place] [address] Immature granulocytes (Bld) [#/Vol] 0.06 x10*3/uL Normal 0.00-0.50 [facility] Comment on above: Performed By: #### 8 9577-1 #### OMERO KNIGHT ([id number]) [facility] ([facility]) [address] [place] [address] Immature granulocytes/100 WBC (Bld) 0.6 % Normal 0.0-0.9 [facility] Comment on above: Result Comment: Martina ture Granulocyte Count (IG) includes promyelocytes, myelocytes and metamyelocytes but does not include bands. Percent differential counts (%) should be interpreted in the context of the absolute cell counts (cells/UL). Performed By: #### 8 9577-1 #### OMERO KNIGHT ([id number]) [facility] ([facility]) [address] [place] [address] Lymphocytes (Bld) [#/Vol] 3.12 x10*3/uL High 0.80-3.00 [facility] Comment on above: Performed By: #### 8 9577-1 #### OMERO KNIGHT ([id number]) [facility] ([facility]) [address] [place] [address] Lymphocytes/100 WBC (Bld) 28.8 % Normal 13.0-44.0 [facility] Comment on above: Performed By: #### 8 9577-1 #### OMERO KNIGHT ([id number]) [facility] ([facility]) [address] [place] [address] MCH (RBC) [Entitic mass] 26.4 pg Normal 26.0-34.0 [facility] Comment on above: Performed By: #### 8 9577-1 #### OMERO KNIGHT (46856) [facility] ([facility]) [address] [place], [place] [address] MCHC (RBC) [Mass/Vol] 31.4 g/dL Low 32.0-36.0 [facility] Comment on above: Performed By: #### 8 9577-1 #### OMERO KNIGHT (08955) [facility] ([facility]) [address] [place] [address] 70946 MCV (RBC) [Entitic vol] 84 fL Normal 80-100 [facility] Comment on above: Performed By: #### 8 9577-1 #### OMERO KNIGHT ([id number]) [facility] ([facility]) [address] [place] [address] 14210 Monocytes (Bld) [#/Vol] 1.02 x10*3/uL High 0.05-0.80 [facility] Comment on above: Performed By: #### 8 9577-1 #### OMERO KNIGHT ([id number]) [facility] ([facility]) [address] [place] [address] 56872 Monocytes/100 WBC (Bld) 9.4 % Normal 2.0-10.0 [facility] Comment on above: Performed By: #### 8 9577-1 #### OMERO KNIGHT ([id number]) [facility] ([facility]) [address] [place] [address] 50252 Neutrophils (Bld) [#/Vol] 6.51 x10*3/uL High 1.60-5.50 [facility] Comment on above: Result Comment: Perc ent differential counts (%) should be interpreted in the context of the absolute cell counts (cells/uL). Performed By: #### 8 9577-1 #### OMERO KNIGHT ([id number]) [facility] ([facility]) [address] [place] [address] [id number] Neutrophils/100 WBC (Bld) 60.0 % Normal 40.0-80.0 [facility] Comment on above: Performed By: #### 8 9577-1 #### OMERO KNIGHT ([id number]) [facility] ([facility]) [address] [place] [address] [id number] Nucleated RBC/100 WBC (Bld) [Ratio] 0.0 /100 WBCs Normal 0.0-0.0 [facility] Comment on above: Performed By: #### 8 9577-1 #### OMERO KNIGHT ([id number]) [facility] ([facility]) [address] [place] [address] [id number] Platelets (Bld) [#/Vol] 353 x10*3/uL Normal 150-450 [facility] Comment on above: Performed By: #### 8 9577-1 #### OMERO KNIGHT ([id number]) [facility] [facility]) [facility] [place] [address] RBC (Bld) [#/Vol] 4.40 x10*6/uL Normal 4.00-5.20 [facility] Comment on above: Performed By: #### 8 9577-1 #### OMERO KNIGHT ([id number]) [facility] ([facility]) [facility] [place] [address] WBC (Bld) [#/Vol] 10.8 x10*3/uL Normal 4.4-11.3 [facility] Comment on above: Performed By: #### 8 9577-1 #### OMERO KNIGHT ([id number]) [facility] ([facility]) [address] [place] [address] CT CHEST ABDOMEN PELVIS WO C ONTRASTon 11-06-2023 CT CHEST ABDOMEN PELVIS WO CONTRAST STUDY: CT Chest, Abdomen, and Pelvis without IV Contrast; 11/06/2023, 804 INDICATION: Abnormal thoracic spine CT. COMPARISON: CT thoracic 11/06/2023, XR chest 10/09/2023, CT abd 01/05/2020. ACCESSION NUMBER(S): [id number] ORDERING CLINICIAN: VERA HUANG TECHNIQUE: CT of [...] uterine fibroids. Signed by Mychal Chavez MD [facility] CT THORACIC SPINE WO IV CONT Hay 11-06-2023 CT THORACIC SPINE WO IV CONTRAST STUDY: CT Thoracic Spine without IV Contrast; 11/06/2023 at 5:45 AM. INDICATION: Thoracic back pain. COMPARISON: None available. ACCESSION NUMBER(S): [id number] ORDERING CLINICIAN: SKINNY STEEL TECHNIQUE: CT of [...] for infl (more content not included)... Normal [facility] Comprehensive metabolic 2000 panelon 11-06-2023 Albumin BCP dye [Mass/Vol] 3.3 g/dL Low 3.4-5.0 [facility] Comment on above: Performed By: #### 2 4321-2 #### JAMIL EUGENE ([id number]) [facility] ([facility]) [address] [place] [address] ALP [Catalytic activity/Vol] 133 U/L Normal 33-136 [facility] Comment on above: Performed By: #### 2 4321-2 #### OMERO KNIGHT ([id number]) [facility] ([facility]) [address] [place] [address] ALT With P-5'-P [Catalytic activity/Vol] 10 U/L Normal 7-45 [facility] Comment on above: Result Comment: Madhavi ents treated with Sulfasalazine may generate falsely decreased results for ALT. Performed By: #### 2 4321-2 #### OMERO KNIGHT ([id number]) [facility] ([facility]) [address] [place] [address] Anion gap [Moles/Vol] 15 mmol/L Normal 10-20 [facility] Comment on above: Performed By: #### 2 4321-2 #### OMERO KNIGHT ([id number]) [facility] ([facility]) [address] [place] [address] AST With P-5'-P [Catalytic activity/Vol] 14 U/L Normal 9-39 [facility] Comment on above: Performed By: #### 2 4321-2 #### OMERO KNIGHT ([id number]) [facility] ([facility]) [address] [place] [address] Bilirubin [Mass/Vol] 0.5 mg/dL Normal 0.0-1.2 [facility] Comment on above: Performed By: #### 2 4321-2 #### OMERO KNIGHT ([id number]) [facility] ([facility]) [facility] [place] [address] Calcium [Mass/Vol] 9.2 mg/dL Normal 8.6-10.3 [facility] Comment on above: Performed By: #### 2 4321-2 #### OMERO KNIGHT ([id number]) [facility] ([facility]) [address] [place] [address] Chloride [Moles/Vol] 96 mmol/L Low 98-107 [facility] Comment on above: Performed By: #### 2 4321-2 #### OMERO KNIGHT ([id number]) [facility] ([facility]) [address] [place] [address] CO2 [Moles/Vol] 26 mmol/L Normal 21-32 [facility] Comment on above: Performed By: #### 2 4321-2 #### OMERO KNIGHT ([id number]) [facility] ([facility]) [facility] [place] [address] Creatinine [Mass/Vol] 1.12 mg/dL High 0.50-1.05 [facility] Comment on above: Performed By: #### 2 4321-2 #### OMERO KNIGHT ([id number]) [facility] ([facility]) [address] [place] [address] Glomerular filtration rate/1.73 sq M.predicted 51 mL/min/1.73m*2 Low >60 [facility] Comment on above: Result Comment: Calc ulations of estimated GFR are performed using the 2020 CKD-EPI Study Refit equation without the race variable for the IDMS-Traceable creatinine methods. https://jasn.asnjournals.org/content/early//ASN.39214 57290 Performed By: #### 2 4320-2 #### OMERO KNIGHT ([id number]) [facility] ([facility]) [address] [place] [address] Glucose [Mass/Vol] 153 mg/dL High 74-99 [facility] Comment on above: Performed By: #### 2 1-2 #### OMERO KNIGHT ([id number]) [facility] ([facility]) [address] [place] [address] Potassium [Moles/Vol] 3.8 mmol/L Normal 3.5-5.3 [facility] Comment on above: Performed By: #### 2 4321-2 #### OMERO KNIGHT ([id number]) [facility] ([facility]) [address] [place] [address] Protein [Mass/Vol] 7.4 g/dL Normal 6.4-8.2 [facility] Comment on above: Performed By: #### 2 4321-2 #### OMERO KNIGHT ([id number]) [facility] ([facility]) [address] [place] [address] Sodium [Moles/Vol] 133 mmol/L Low 136-145 [facility] Comment on above: Performed By: #### 2 4321-2 #### OMERO KNIGHT ([id number]) [facility] ([facility]) [address] [place], [place] [address] Urea nitrogen [Mass/Vol] 29 mg/dL High 6-23 [facility] Comment on above: Performed By: #### 2 4321-2 #### OMERO KNIGHT ([id number]) [facility] ([facility]) [address] [place] [address] ECG 12-LEADon 11-06-2023 ECG 12-LEAD Ventricular Rate 96 QRS Duration 116 Q-T Interval 354 QTC Calculation(Bazett) 447 R Lodi -50 T Lodi 125 QRS Count 16 Q Onset 203 [...] and clinical correlation Confirmed by Sophie Florian ([id number]) on 11/06/2023 8:58:45 PM Normal [facility] Glucose Test strip manual (B ld) [Mass/Vol]on 11-06-2023 Glucose [Mass/Vol] 128 mg/dL High 74-99 [facility] Comment on above: Performed By: #### 3 0934-4 #### OMERO KNIGHT ([id number]) [facility] ([facility]) [address] [place] [address] Glucose [Mass/Vol] 98 mg/dL Normal 74-99 [facility] Comment on above: Performed By: #### 3 0934-4 #### OMERO KNIGHT ([id number]) [facility] ([facility]) [address] [place] [address] MR CERVICAL SPINE W AND WO I V CONTRASTon 11-06-2023 MR CERVICAL SPINE W AND WO IV CONTRAST Interpreted By: Lynda Bal, STUDY: MR CERVICAL SPINE W AND WO IV CONTRAST; 11/06/2023 12:58 pm INDICATION: Signs/Symptoms:Abnormal CT thoracic spine, Cancer staging. COMPARISON: None. ACCESSION NUMBER(S): [id number] ORDERING CLINICIAN: VERA HUANG TECHNIQUE: Sagittal T1, [...] throughout the cervical spine. Varying degrees of uisg-tz-eodsqtie disc height loss. Cord: Within the limitation [...] Lynda Bal 11/06/2023 1:10 PM Dictation workstation: [id number] [facility] MR LUMBAR SPINE W AND WO IV CONTRASTon 11-06-2023 MR LUMBAR SPINE W AND WO IV CONTRAST Interpreted By: Lynda Bal, STUDY: MRI of the lumbar spine without IV contrast; 11/06/2023 12:58 pm INDICATION: Signs/Symptoms:Abnormal thoracic CT scan, cancer staging. COMPARISON: None. ACCESSION NUMBER(S): [id number] ORDERING CLINICIAN: VERA HUANG TECHNIQUE: Sagittal and [...] stenosis, narrowing of the subarticular recess and zlem-ld-bgzospek bilateral neural foraminal stenosis. L3-L4: Disc bulge, [...] as stated. This study was interpreted at [place], [place]. MACRO: None Signed by: Lynda Bal 11/06/2023 1:29 PM Dictation workstation: [id number] [facility] MR THORACIC SPINE W AND WO I V CONTRASTon 11-06-2023 MR THORACIC SPINE W AND WO IV CONTRAST Interpreted By: Lynda Bal, STUDY: MR THORACIC SPINE W AND WO IV CONTRAST; 11/06/2023 12:58 pm INDICATION: Signs/Symptoms:Abnormal thoracic CT scan, cancer staging. COMPARISON: None. ACCESSION NUMBER(S): [id number] ORDERING CLINICIAN: VERA HUANG TECHNIQUE: Sagittal T1, T2, STIR and axial T2 and T1 weighted MR images of the thoracic spine were obtained. FINDINGS: Counting was performed from the C2 vertebral body on the slot service specialist image. Alignment: There is slightly exaggerated thoracic [...] spine with mild degenerative endplate changes and wcid-xl-gfwcidgb disc height loss. There is prevertebral infiltration [...] with moderate to severe spinal canal and zyha-tt-rknbnsrs bilateral neural foraminal stenosis. T9-T10, T10-T11: Degenerative [...] Lynda Bal 11/06/2023 1:24 PM Dictation workstation: [id number] Normal [facility] Troponin I.cardiac panelon 0 11-06-2023 Tropinin I.cardiac panel High sensitivity method 9 ng/L Normal 0-13 [facility] Comment on above: Order Comment: Less than [...] performed using a differenttesting methodology at [facility] than at [facility]. Direct result comparisons should onlybe made within the same method. Performed By: #### 2 4321-2 #### OMERO KNIGHT ([id number]) [facility] ([facility]) [address] [place], [place] [address] Urinalysis complete W Reflex Culture panel (U)on 11-06-2023 Appearance (U) Turbid Normal Clear [facility] Comment on above: Performed By: #### 8 9577-1 #### OMERO KNIGHT ([id number]) [facility] ([facility]) [address] [place] [address] Bilirubin (U) [Mass/Vol] Negative Normal NEGATIVE [facility] Comment on above: Performed By: #### 8 9577-1 #### OMERO KNIGHT ([id number]) [facility] ([facility]) [address] [place] [address] Color (U) Yellow Normal Light-Yellow , Yellow, Dark-Yellow [facility] Comment on above: Performed By: #### 8 9577-1 #### OMERO KNIGHT ([id number]) [facility] ([facility]) [address] [place] [address] Glucose Auto test strip (U) [Mass/Vol] Normal Normal Normal [facility] Comment on above: Performed By: #### 8 9577-1 #### OMERO KNIGHT ([id number]) [facility] ([facility]) [address] [place] [address] Ketones (U) [Mass/Vol] Negative Normal NEGATIVE [facility] Comment on above: Performed By: #### 8 9577-1 #### OMERO KNIGHT ([id number]) [facility] ([facility]) [address] [place] [address] Leukocyte esterase Auto test strip Ql (U) 75 Ray/???L Abnormal NEGATIVE [facility] Comment on above: Performed By: #### 8 9577-1 #### OMERO KNIGHT ([id number]) [facility] ([facility]) [address] [place] [address] Nitrite Auto test strip Ql (U) Negative Normal NEGATIVE [facility] Comment on above: Performed By: #### 8 9577-1 #### OMERO KNIGHT ([id number]) [facility] ([facility]) [address] [place] [address] pH (U) 5.5 [pH] Normal 5.0, 5.5, 6.0, 6.5, 7.0, 7.5, 8.0 [facility] Comment on above: Performed By: #### 8 9577-1 #### OMERO KNIGHT ([id number]) [facility] ([facility]) [address] [place] [address] Protein (U) [Mass/Vol] 20 (TRACE) Normal NEGAT JORGE, 10 (TRACE), 20 (TRACE) [facility] Comment on above: Performed By: #### 8 9577-1 #### OMERO KNIGHT ([id number]) [facility] ([facility]) [address] [place] [address] RBC (U) [#/Vol] 0.1 (1+) Abnormal NEGATIVE [facility] Comment on above: Performed By: #### 8 9577-1 #### OMERO KNIGHT ([id number]) [facility] ([facility]) [address] [place] [address] Specific gravity (U) [Rel density] 1.029 Normal 1.005-1.035 [facility] Comment on above: Performed By: #### 8 9577-1 #### OMERO KNIGHT (26604) [facility] ([facility]) [address] [place] [address] Urobilinogen (U) [Mass/Vol] 3 (1+) Abnormal Normal [facility] Comment on above: Result Comment: Some pigments and medications may cause a false positive urobilinogen. Performed By: #### 8 9577-1 #### OMERO KNIGHT (35996) [facility] ([facility]) [address] [place] [address] Urinalysis microscopic panel Auto Ql (U)on 11-06-2023 Bacteria Auto (Urine sed) [#/Area] 1+ /HPF Abnormal NONE SEEN [facility] Comment on above: Performed By: #### 2 4321-2 #### OMERO KNIGHT ([id number]) [facility] ([facility]) [address] [place] [address] Crystals.amorphous Computer assisted (U) [#/Area] 1+ /HPF Normal NONE, 1+, 2+ [facility] Comment on above: Performed By: #### 2 4321-2 #### OMERO KNIGHT (69286) [facility] ([facility]) [address] [place] [address] Epithelial cells.squamous Auto (Urine sed) [#/Area] 1-9 (SPARSE) Normal Reference range not established. [facility] Comment on above: Performed By: #### 2 4321-2 #### OMERO KNIGHT ([id number]) [facility] ([facility]) [address] [place] [address] Mucus Auto (Urine sed) [#/Area] FEW Normal Reference range not established. [facility] Comment on above: Performed By: #### 2 4321-2 #### OMERO KNIGHT ([id number]) [facility] ([facility]) [address] [place] [address] RBC Auto (Urine sed) [#/Area] 3-5 Normal NONE, 1-2, 3-5 [facility] Comment on above: Performed By: #### 2 4321-2 #### OMERO KNIGHT ([id number]) [facility] ([facility]) [address] [place], [place] [address] WBC Auto (Urine sed) [#/Area] 1-5 Normal 1-5, NONE [facility] Comment on above: Performed By: #### 2 4321-2 #### OMERO KNIGHT ([id number]) [facility] ([facility]) [address] [place] [address] Basic metabolic 2000 panelon 10-15-2023 Anion gap [Moles/Vol] 12 mmol/L 10 - 2 0 mmol/L [facility] Calcium [Mass/Vol] 8.6 mg/dL 8.6 - 10. 3 mg/dL [facility] Chloride [Moles/Vol] 92 mmol/L Low 98 - 10 7 mmol/L [facility] CO2 [Moles/Vol] 30 mmol/L 21 - 32 mmol/L [facility] Creatinine [Mass/Vol] 0.67 mg/dL 0.50 - 1.05 mg/dL [facility] eGFR - PINF [facility] Comment on above: Calculations of hannah mated GFR are performed using the 2020 CKD-EPI Study Refit equation without the race variable for the IDMS-Traceable creatinine methods. https://jasn.asnjournals.org/content/early/ASN.33964 90577 Glucose [Mass/Vol] 170 mg/dL High 74 - 99 mg/dL [facility] Interpretation and review of laboratory results Abnormal [facility] Potassium [Moles/Vol] 3.7 mmol/L 3.5 - 5.3 mmol/L [facility] Sodium [Moles/Vol] 130 mmol/L Low 136 - 145 mmol/L [facility] Comment on above: Reviewed previous re sults Urea nitrogen [Mass/Vol] 19 mg/dL 6 - 23 mg/dL [facility] Anion gap [Moles/Vol] 12 mmol/L Normal 10-20 [facility] Comment on above: Performed By: #### 8 9577-1 #### OMERO KNIGHT ([id number]) [facility] ([facility]) [facility] [place] [address] Calcium [Mass/Vol] 8.6 mg/dL Normal 8.6-10.3 [facility] Comment on above: Performed By: #### 8 9577-1 #### OMERO KNIGHT ([id number]) [facility] ([facility]) [address] [place] [address] Chloride [Moles/Vol] 92 mmol/L Low 98-107 [facility] Comment on above: Performed By: #### 8 9577-1 #### OMERO KNIGHT ([id number]) [facility] ([facility]) [address] [place] [address] CO2 [Moles/Vol] 30 mmol/L Normal 21-32 [facility] Comment on above: Performed By: #### 8 9577-1 #### OMERO KNIGHT ([id number]) [facility] ([facility]) [facility] [place] [address] Creatinine [Mass/Vol] 0.67 mg/dL Normal 0.50-1.05 [facility] Comment on above: Performed By: #### 8 9577-1 #### OMERO KNIGHT ([id number]) [facility] ([facility]) [address] [place] [address] GFR/1.73 sq M.predicted MDRD (S/P/Bld) [Vol rate/Area] mL/min/{1.73_m2} Normal >60 [facility] Comment on above: Result Comment: Calc ulations of estimated GFR are performed using the 2020 CKD-EPI Study Refit equation without the race variable for the IDMS-Traceable creatinine methods. https://jasn.asnjournals.org/content/early//ASN.13285 10182 Performed By: #### 8 9577-1 #### OMERO KNIGHT (07007) [facility] ([facility]) [address] [place] [address] Glucose [Mass/Vol] 170 mg/dL High 74-99 [facility] Comment on above: Performed By: #### 8 9577-1 #### OMERO KNIGHT (35994) [facility] ([facility]) [address] [place] [address] Potassium [Moles/Vol] 3.7 mmol/L Normal 3.5-5.3 [facility] Comment on above: Performed By: #### 8 9577-1 #### OMERO KNIGHT ([id number]) [facility] ([facility]) [address] [place] [address] Sodium [Moles/Vol] 130 mmol/L Low 136-145 [facility] Comment on above: Result Comment: Revi ewed previous results Performed By: #### 8 9577-1 #### OMERO KNIGHT (40347) [facility] ([facility]) [address] [place] [address] Urea nitrogen [Mass/Vol] 19 mg/dL Normal 6-23 [facility] Comment on above: Performed By: #### 8 9577-1 #### OMERO KNIGHT ([id number]) [facility] ([facility]) [address] [place] [address] CBC panel Auto (Bld)on 10-14 Erythrocyte distribution width (RBC) [Ratio] 14.3 % 11.5 - 14.5 % [facility] Hematocrit (Bld) [Volume fraction] 40.4 % 36.0 - 46.0 % [facility] Hemoglobin (Bld) [Mass/Vol] 12.9 g/dL 12.0 - 16.0 g/dL [facility] Interpretation and review of laboratory results Abnormal [facility] MCH (RBC) [Entitic mass] 26.7 pg 26.0 - 34.0 pg [facility] MCHC (RBC) [Mass/Vol] 31.9 g/dL Low 32.0 - 36.0 g/dL [facility] MCV (RBC) [Entitic vol] 84 fL 80 - 100 fL [facility] Nucleated RBC/100 WBC (Bld) [Ratio] 0.0 % [facility] Platelets (Bld) [#/Vol] 275 10*3/uL [facility] RBC (Bld) [#/Vol] 4.83 10*6/uL [facility] WBC (Bld) [#/Vol] 15.1 10*3/uL High [facility] Erythrocyte distribution width (RBC) [Ratio] 14.3 % Normal 11.5-14.5 [facility] Comment on above: Performed By: #### 8 9577-1 #### OMERO KNIGHT ([id number]) [facility] ([facility]) [address] [place] [address] Hematocrit (Bld) [Volume fraction] 40.4 % Normal 36.0-46.0 [facility] Comment on above: Performed By: #### 8 9577-1 #### OMERO KNIGHT (12330) [facility] ([facility]) [address] [place] [address] Hemoglobin (Bld) [Mass/Vol] 12.9 g/dL Normal 12.0-16.0 [facility] Comment on above: Performed By: #### 8 9577-1 #### OMERO KNIGHT (80008) [facility] ([facility]) [address] [place] [address] MCH (RBC) [Entitic mass] 26.7 pg Normal 26.0-34.0 [facility] Comment on above: Performed By: #### 8 9577-1 #### OMERO KNIGHT (18878) [facility] ([facility]) [address] [place] [address] MCHC (RBC) [Mass/Vol] 31.9 g/dL Low 32.0-36.0 [facility] Comment on above: Performed By: #### 8 9577-1 #### OMERO KNIGHT ([id number]) [facility] ([facility]) [address] [place], [place] [address] MCV (RBC) [Entitic vol] 84 fL Normal 80-100 [facility] Comment on above: Performed By: #### 8 9577-1 #### OMERO KNIGHT (56672) [facility] ([facility]) [address] [place], [place] [address] Nucleated RBC/100 WBC (Bld) [Ratio] 0.0 /100 WBCs Normal 0.0-0.0 [facility] Comment on above: Performed By: #### 8 9577-1 #### OMERO KNIGHT (16144) [facility] ([facility]) [address] [place] [address] Platelets (Bld) [#/Vol] 275 x10*3/uL Normal 150-450 [facility] Comment on above: Performed By: #### 8 9577-1 #### OMERO KNIGHT ([id number]) [facility] ([facility]) [address] [place] [address] 349[address] RBC (Bld) [#/Vol] 4.83 x10*6/uL Normal 4.00-5.20 [facility] Comment on above: Performed By: #### 8 9577-1 #### OMERO KNIGHT ([id number]) [facility] ([facility]) [address] [place] [address] 23091 WBC (Bld) [#/Vol] 15.1 x10*3/uL High 4.4-11.3 [facility] Comment on above: Performed By: #### 8 9577-1 #### OMERO KNIGHT ([id number]) [facility] ([facility]) [address] [place] [address] Glucose Test strip manual (B ld) [Mass/Vol]on 10-15-2023 Glucose [Mass/Vol] 141 mg/dL High 74 - 99 mg/dL [facility] Interpretation and review of laboratory results Abnormal [facility] Glucose [Mass/Vol] 141 mg/dL High 74-99 [facility] Comment on above: Performed By: #### 8 9577-1 #### OMERO KNIHGT (63526) [facility] ([facility]) [address] [place] [address] 12200 Glucose [Mass/Vol] 225 mg/dL High 74 - 99 mg/dL [facility] Interpretation and review of laboratory results Abnormal [facility] Glucose [Mass/Vol] 225 mg/dL High 74-99 [facility] Comment on above: Performed By: #### 8 9577-1 #### OMERO KNIGHT (87607) [facility] ([facility]) [address] [place] [address]777 Glucose [Mass/Vol] 156 mg/dL High 74 - 99 mg/dL [facility] Interpretation and review of laboratory results Abnormal [facility] Glucose [Mass/Vol] 156 mg/dL High 74-99 [facility] Comment on above: Performed By: #### 8 9577-1 #### OMERO KNIGHT ([id number]) [facility] ([facility]) [address] [place] [address] Basic metabolic 2000 panelon 10-14-2023 Anion gap [Moles/Vol] 12 mmol/L 10 - 2 0 mmol/L [facility] Calcium [Mass/Vol] 8.7 mg/dL 8.6 - 10. 3 mg/dL [facility] Chloride [Moles/Vol] 93 mmol/L Low 98 - 10 7 mmol/L [facility] CO2 [Moles/Vol] 27 mmol/L 21 - 32 mmol/L [facility] Creatinine [Mass/Vol] 0.66 mg/dL 0.50 - 1.05 mg/dL [facility] eGFR - PINF [facility] Comment on above: Calculations of hannah mated GFR are performed using the 2020 CKD-EPI Study Refit equation without the race variable for the IDMS-Traceable creatinine methods. https://jasn.asnjournals.org/content/early//ASN.23855 63173 Glucose [Mass/Vol] 177 mg/dL High 74 - 99 mg/dL [facility] Interpretation and review of laboratory results Abnormal [facility] Potassium [Moles/Vol] 3.7 mmol/L 3.5 - 5.3 mmol/L [facility] Sodium [Moles/Vol] 128 mmol/L Low 136 - 145 mmol/L [facility] Comment on above: Reviewed previous re sults Urea nitrogen [Mass/Vol] 25 mg/dL High 6 - 23 mg/dL [facility] Anion gap [Moles/Vol] 12 mmol/L Normal 10-20 [facility] Comment on above: Performed By: #### 2 4321-2 ####OMERO KNIGHT ([id number])[facility] ([facility])[address] [place] [id number] Calcium [Mass/Vol] 8.7 mg/dL Normal 8.6-10.3 [facility] Comment on above: Performed By: #### 2 4321-2 ####OMERO KNIGHT (63606)[facility] ([facility])[address] [place] [address] Chloride [Moles/Vol] 93 mmol/L Low 98-107 [facility] Comment on above: Performed By: #### 2 4321-2 ####OMERO KNIGHT ([id number])[facility] ([facility] [place] [address] CO2 [Moles/Vol] 27 mmol/L Normal 21-32 [facility] Comment on above: Performed By: #### 2 4321-2 ####OMERO KNIGHT ([id number])[facility] ([facility])[address] [place] [address] 36784 Creatinine [Mass/Vol] 0.66 mg/dL Normal 0.50-1.05 [facility] Comment on above: Performed By: #### 2 4321-2 ####OMERO KNIGHT (69661)[facility] ([facility])[address] [place] [address] 14470 GFR/1.73 sq M.predicted MDRD (S/P/Bld) [Vol rate/Area] mL/min/{1.73_m2} Normal >60 [facility] Comment on above: Result Comment: Calc ulations of estimated GFR are performed using the 2020 CKD-EPI Study Refit equation without the race variable for the IDMS-Traceable creatinine methods. https://jasn.asnjournals.org/content//ASN.73247 09784 Performed By: #### 2 4321-2 ####OMERO KNIGHT ([id number])[facility] ([facility])[address] [place] [address] 71456 Glucose [Mass/Vol] 177 mg/dL High 74-99 [facility] Comment on above: Performed By: #### 2 4321-2 ####OMERO KNIGHT ([id number])[facility] ([facility] [place] [address] Potassium [Moles/Vol] 3.7 mmol/L Normal 3.5-5.3 [facility] Comment on above: Performed By: #### 2 4321-2 ####OMERO KNIGHT ([id number])[facility] ([facility] [place] [id number] Sodium [Moles/Vol] 128 mmol/L Low 136-145 [facility] Comment on above: Result Comment: Revi ewed previous results Performed By: #### 2 4321-2 ####OMERO KNIGHT ([id number])[facility] ([facility])[address] [place], [place] [address] Urea nitrogen [Mass/Vol] 25 mg/dL High 6-23 [facility] Comment on above: Performed By: #### 2 4321-2 ####OMERO KNIGHT ([id number])[facility] ([facility])[address] [place] [address] 40773 CBC panel Auto (Bld)on 10-13 Erythrocyte distribution width (RBC) [Ratio] 14.4 % 11.5 - 14.5 % [facility] Hematocrit (Bld) [Volume fraction] 38.0 % 36.0 - 46.0 % [facility] Hemoglobin (Bld) [Mass/Vol] 12.3 g/dL 12.0 - 16.0 g/dL [facility] Interpretation and review of laboratory results Abnormal [facility] MCH (RBC) [Entitic mass] 26.7 pg 26.0 - 34.0 pg [facility] MCHC (RBC) [Mass/Vol] 32.4 g/dL 32.0 - 36.0 g/dL [facility] MCV (RBC) [Entitic vol] 82 fL 80 - 100 fL [facility] Nucleated RBC/100 WBC (Bld) [Ratio] 0.0 % [facility] Platelets (Bld) [#/Vol] 299 10*3/uL [facility] RBC (Bld) [#/Vol] 4.61 10*6/uL [facility] WBC (Bld) [#/Vol] 14.2 10*3/uL High [facility] Erythrocyte distribution width (RBC) [Ratio] 14.4 % Normal 11.5-14.5 [facility] Comment on above: Performed By: #### 5 8410-2 ####OMERO KNIGHT ([id number])[facility] ([facility])[address] [place] [address] Hematocrit (Bld) [Volume fraction] 38.0 % Normal 36.0-46.0 [facility] Comment on above: Performed By: #### 5 8410-2 ####OMERO KNIGHT (55907)[facility] ([facility])[address] [place] [address] 56241 Hemoglobin (Bld) [Mass/Vol] 12.3 g/dL Normal 12.0-16.0 [facility] Comment on above: Performed By: #### 5 8410-2 ####OMERO KNIGHT (52221)[facility] ([facility])[address] [place] [address] 35518 MCH (RBC) [Entitic mass] 26.7 pg Normal 26.0-34.0 [facility] Comment on above: Performed By: #### 5 8410-2 ####OMERO KNIGHT (21509)[facility] ([facility])[address] [place] [address] 05431 MCHC (RBC) [Mass/Vol] 32.4 g/dL Normal 32.0-36.0 [facility] Comment on above: Performed By: #### 5 8410-2 ####OMERO KNIGHT (80073)[facility] ([facility])[address] [place] [address] 94828 MCV (RBC) [Entitic vol] 82 fL Normal 80-100 [facility] Comment on above: Performed By: #### 5 8410-2 ####OMERO KNIGHT ([id number])[facility] ([facility])[address] [place] [address] 27911 Nucleated RBC/100 WBC (Bld) [Ratio] 0.0 /100 WBCs Normal 0.0-0.0 [facility] Comment on above: Performed By: #### 5 8410-2 ####OMERO KNIGHT (74653)[facility] ([facility])[address] [place] [address] 57778 Platelets (Bld) [#/Vol] 299 x10*3/uL Normal 150-450 [facility] Comment on above: Performed By: #### 5 8410-2 ####OMERO KNIGHT ([id number])[facility] ([facility])[address] [place] [address] 33745 RBC (Bld) [#/Vol] 4.61 x10*6/uL Normal 4.00-5.20 [facility] Comment on above: Performed By: #### 5 8410-2 ####OMERO KNIGHT (05793)[facility] ([facility])[address] [place] [address] 05649 WBC (Bld) [#/Vol] 14.2 x10*3/uL High 4.4-11.3 [facility] Comment on above: Performed By: #### 5 8410-2 ####OMERO KNIGHT (59672)[facility] ([facility])[address] [place] [address] 07768 Glucose Test strip manual (B ld) [Mass/Vol]on 10-14-2023 Glucose [Mass/Vol] 159 mg/dL High 74 - 99 mg/dL [facility] Interpretation and review of laboratory results Abnormal [facility] Glucose [Mass/Vol] 159 mg/dL High 74-99 [facility] Comment on above: Performed By: #### 8 9577-1 #### OMERO KNIGHT (23757) [facility] ([facility]) [address] [place] [address] 35968 Glucose [Mass/Vol] 201 mg/dL High 74 - 99 mg/dL [facility] Interpretation and review of laboratory results Abnormal [facility] Glucose [Mass/Vol] 201 mg/dL High 74-99 [facility] Comment on above: Performed By: #### 8 9577-1 #### OMERO KNIGHT (52359) [facility] ([facility]) [address] [place] [address] Glucose [Mass/Vol] 154 mg/dL High 74 - 99 mg/dL [facility] Interpretation and review of laboratory results Abnormal [facility] Glucose [Mass/Vol] 154 mg/dL High 74-99 [facility] Comment on above: Performed By: #### 8 9577-1 #### OMERO KNIGHT (74779) [facility] ([facility]) [address] [place] [address] Glucose [Mass/Vol] 179 mg/dL High 74 - 99 mg/dL [facility] Interpretation and review of laboratory results Abnormal [facility] Glucose [Mass/Vol] 179 mg/dL High 74-99 [facility] Comment on above: Performed By: #### 2 341-6 ####OMERO KNIGHT ([id number])[facility] ([facility])[address] [place] [address] 08906 Basic metabolic 2000 panelon 10-13-2023 Anion gap [Moles/Vol] 13 mmol/L 10 - 2 0 mmol/L [facility] Calcium [Mass/Vol] 8.7 mg/dL 8.6 - 10. 3 mg/dL [facility] Chloride [Moles/Vol] 94 mmol/L Low 98 - 10 7 mmol/L [facility] CO2 [Moles/Vol] 26 mmol/L 21 - 32 mmol/L [facility] Creatinine [Mass/Vol] 0.75 mg/dL 0.50 - 1.05 mg/dL [facility] GFR/1.73 sq M.predicted among non-blacks MDRD (S/P/Bld) [Vol rate/Area] 83 mL/min/{1.73_m2} - PINF [facility] Comment on above: Calculations of hannah mated GFR are performed using the 2020 CKD-EPI Study Refit equation without the race variable for the IDMS-Traceable creatinine methods. https://jasn.asnjournals.org/content//ASN.29048 95130 Glucose [Mass/Vol] 186 mg/dL High 74 - 99 mg/dL [facility] Interpretation and review of laboratory results Abnormal [facility] Potassium [Moles/Vol] 4.0 mmol/L 3.5 - 5.3 mmol/L [facility] Sodium [Moles/Vol] 129 mmol/L Low 136 - 145 mmol/L [facility] Urea nitrogen [Mass/Vol] 32 mg/dL High 6 - 23 mg/dL [facility] Anion gap [Moles/Vol] 13 mmol/L Normal 10-20 [facility] Comment on above: Performed By: #### 2 4321-2 ####OEMRO KNIGHT ([id number])[facility] ([facility])[address] [place] [address] 00625 Calcium [Mass/Vol] 8.7 mg/dL Normal 8.6-10.3 [facility] Comment on above: Performed By: #### 2 4321-2 ####OMERO KNIGHT (83881)[facility] ([facility])[address] [place] [address] 33812 Chloride [Moles/Vol] 94 mmol/L Low 98-107 [facility] Comment on above: Performed By: #### 2 4321-2 ####OMERO KNIGHT (19797)[facility] ([facility] [place] [address] CO2 [Moles/Vol] 26 mmol/L Normal 21-32 [facility] Comment on above: Performed By: #### 2 4321-2 ####OMERO KNIGHT ([id number])[facility] ([facility])[address] [place] [address] 91187 Creatinine [Mass/Vol] 0.75 mg/dL Normal 0.50-1.05 [facility] Comment on above: Performed By: #### 2 4321-2 ####OMERO KNIGHT (66410)[facility] ([facility])[address] [place] [address] 13577 Glomerular filtration rate/1.73 sq M.predicted 83 mL/min/1.73m*2 Normal >60 [facility] Comment on above: Result Comment: Calc ulations of estimated GFR are performed using the 2020 CKD-EPI Study Refit equation without the race variable for the IDMS-Traceable creatinine methods. https://jasn.asnjournals.org/content//ASN.46733 46909 Performed By: #### 2 4321-2 ####OMERO KNIGHT (78319)[facility] ([facility])[address] [place] [address] 41121 Glucose [Mass/Vol] 186 mg/dL High 74-99 [facility] Comment on above: Performed By: #### 2 4321-2 ####OMERO KNIGHT (40563)[facility] ([facility])[address] [place] [address] 06985 Potassium [Moles/Vol] 4.0 mmol/L Normal 3.5-5.3 [facility] Comment on above: Performed By: #### 2 4321-2 ####OMERO KNIGHT (93045)[facility] ([facility])[address] [place] [address] 96505 Sodium [Moles/Vol] 129 mmol/L Low 136-145 [facility] Comment on above: Performed By: #### 2 4321-2 ####OMERO KNIGHT (89959)[facility] ([facility])[address] [place] [address] 00235 Urea nitrogen [Mass/Vol] 32 mg/dL High 6-23 [facility] Comment on above: Performed By: #### 2 4321-2 ####OMERO KNIGHT (05233)[facility] ([facility])[address] [place] [address] 90344 CBC panel Auto (Bld)on 10-12 Erythrocyte distribution width (RBC) [Ratio] 14.4 % 11.5 - 14.5 % [facility] Hematocrit (Bld) [Volume fraction] 38.0 % 36.0 - 46.0 % [facility] Hemoglobin (Bld) [Mass/Vol] 12.1 g/dL 12.0 - 16.0 g/dL [facility] Interpretation and review of laboratory results Abnormal [facility] MCH (RBC) [Entitic mass] 26.5 pg 26.0 - 34.0 pg [facility] MCHC (RBC) [Mass/Vol] 31.8 g/dL Low 32.0 - 36.0 g/dL [facility] MCV (RBC) [Entitic vol] 83 fL 80 - 100 fL [facility] Nucleated RBC/100 WBC (Bld) [Ratio] 0.0 % [facility] Platelets (Bld) [#/Vol] 269 10*3/uL [facility] RBC (Bld) [#/Vol] 4.57 10*6/uL [facility] WBC (Bld) [#/Vol] 18.1 10*3/uL High [facility] Erythrocyte distribution width (RBC) [Ratio] 14.4 % Normal 11.5-14.5 [facility] Comment on above: Performed By: #### 5 8410-2 ####OMERO KNIGHT (17365)[facility] ([facility])[address] [place] [address] 29092 Hematocrit (Bld) [Volume fraction] 38.0 % Normal 36.0-46.0 [facility] Comment on above: Performed By: #### 5 8410-2 ####OMERO KNIGHT (61972)[facility] ([facility])[address] [place] [address] 24111 Hemoglobin (Bld) [Mass/Vol] 12.1 g/dL Normal 12.0-16.0 [facility] Comment on above: Performed By: #### 5 8410-2 ####OMERO KNIGHT ([id number])[facility] ([facility])[address] [place] [address] 72082 MCH (RBC) [Entitic mass] 26.5 pg Normal 26.0-34.0 [facility] Comment on above: Performed By: #### 5 8410-2 ####OMERO KNIGHT (08379)[facility] ([facility])[address] [place] [address] MCHC (RBC) [Mass/Vol] 31.8 g/dL Low 32.0-36.0 [facility] Comment on above: Performed By: #### 5 8410-2 ####OMERO KNIGHT (11889)[facility] ([facility])[address] [place], [place] [address] MCV (RBC) [Entitic vol] 83 fL Normal 80-100 [facility] Comment on above: Performed By: #### 5 8410-2 ####OMERO KNIGHT (08321)[facility] ([facility])[address] [place] [address] Nucleated RBC/100 WBC (Bld) [Ratio] 0.0 /100 WBCs Normal 0.0-0.0 [facility] Comment on above: Performed By: #### 5 8410-2 ####OMERO KNIGHT (70295)[facility] ([facility])[address] [place], [place] [address] Platelets (Bld) [#/Vol] 269 x10*3/uL Normal 150-450 [facility] Comment on above: Performed By: #### 5 8410-2 ####OMERO KNIGHT (04249)[facility] ([facility])[address] [place], [place] [address] RBC (Bld) [#/Vol] 4.57 x10*6/uL Normal 4.00-5.20 [facility] Comment on above: Performed By: #### 5 8410-2 ####OMERO KNIGHT (01836)[facility] ([facility])[address] [place] [address] 98887 WBC (Bld) [#/Vol] 18.1 x10*3/uL High 4.4-11.3 [facility] Comment on above: Performed By: #### 5 8410-2 ####OMERO KNIGHT (75030)[facility] ([facility])[address] [place], [place] [address] Glucose Test strip manual (B ld) [Mass/Vol]on 10-13-2023 Glucose [Mass/Vol] 168 mg/dL High 74 - 99 mg/dL [facility] Interpretation and review of laboratory results Abnormal [facility] Glucose [Mass/Vol] 168 mg/dL High 74-99 [facility] Comment on above: Performed By: #### 2 341-6 ####OMERO KNIGHT (85000)[facility] ([facility])[address] [place] [address] 06644 Glucose [Mass/Vol] 192 mg/dL High 74 - 99 mg/dL [facility] Comment on above: RN/MD NOTIFIED Interpretation and review of laboratory results Abnormal [facility] Glucose [Mass/Vol] 192 mg/dL High 74-99 [facility] Comment on above: Result Comment: RN/M D NOTIFIED Performed By: #### 2 341-6 ####OMERO KNIGHT (01641)[facility] ([facility])[address] [place] [address] 24762 Glucose [Mass/Vol] 157 mg/dL High 74 - 99 mg/dL [facility] Interpretation and review of laboratory results Abnormal [facility] Glucose [Mass/Vol] 157 mg/dL High 74-99 [facility] Comment on above: Performed By: #### 2 341-6 ####OMERO KNIGHT ([id number])[facility] ([facility])[address] [place] [address] 58687 Glucose [Mass/Vol] 167 mg/dL High 74 - 99 mg/dL [facility] Comment on above: RN/MD NOTIFIED Interpretation and review of laboratory results Abnormal [facility] Glucose [Mass/Vol] 167 mg/dL High 74-99 [facility] Comment on above: Result Comment: RN/M D NOTIFIED Performed By: #### 2 341-6 ####OMERO KNIGHT (69579)[facility] ([facility])[address] [place] [address] 43785 Bacteria identified Cx Nom ( U)Ordered By: Heather Messer on 10-12-2023 Interpretation and review of laboratory results Abnormal [facility] Basic metabolic 2000 panelon 10-12-2023 Anion gap [Moles/Vol] 12 mmol/L 10 - 2 0 mmol/L [facility] Calcium [Mass/Vol] 9.1 mg/dL 8.6 - 10. 3 mg/dL [facility] Chloride [Moles/Vol] 93 mmol/L Low 98 - 10 7 mmol/L [facility] CO2 [Moles/Vol] 28 mmol/L 21 - 32 mmol/L [facility] Creatinine [Mass/Vol] 0.87 mg/dL 0.50 - 1.05 mg/dL [facility] GFR/1.73 sq M.predicted among non-blacks MDRD (S/P/Bld) [Vol rate/Area] 70 mL/min/{1.73_m2} - PINF [facility] Comment on above: Calculations of hannah mated GFR are performed using the 2020 CKD-EPI Study Refit equation without the race variable for the IDMS-Traceable creatinine methods. https://jasn.asnjournals.org/content/early/ASN.40367 84961 Glucose [Mass/Vol] 191 mg/dL High 74 - 99 mg/dL [facility] Interpretation and review of laboratory results Abnormal [facility] Potassium [Moles/Vol] 3.3 mmol/L Low 3.5 - 5.3 mmol/L [facility] Sodium [Moles/Vol] 130 mmol/L Low 136 - 145 mmol/L [facility] Urea nitrogen [Mass/Vol] 38 mg/dL High 6 - 23 mg/dL [facility] Anion gap [Moles/Vol] 12 mmol/L Normal 10-20 [facility] Comment on above: Performed By: #### 5 7021-8 #### JAMIL EUGENE (93294) [facility] ([facility]) [address] [place] [address] Calcium [Mass/Vol] 9.1 mg/dL Normal 8.6-10.3 [facility] Comment on above: Performed By: #### 5 7021-8 #### OMERO KNIGHT (03118) [facility] ([facility]) [facility] [place] [address] Chloride [Moles/Vol] 93 mmol/L Low 98-107 [facility] Comment on above: Performed By: #### 5 7021-8 #### OMERO KNIGHT (06183) [facility] ([facility]) [address] [place] [address] 28080 CO2 [Moles/Vol] 28 mmol/L Normal 21-32 [facility] Comment on above: Performed By: #### 5 7021-8 #### OMERO KNIGHT (63685) [facility] ([facility]) [address] [place] [address] 77254 Creatinine [Mass/Vol] 0.87 mg/dL Normal 0.50-1.05 [facility] Comment on above: Performed By: #### 5 7021-8 #### OMERO KNIGHT (16181) [facility] ([facility]) [address] [place] [address] 23353 Glomerular filtration rate/1.73 sq M.predicted 70 mL/min/1.73m*2 Normal >60 [facility] Comment on above: Result Comment: Calc ulations of estimated GFR are performed using the 2020 CKD-EPI Study Refit equation without the race variable for the IDMS-Traceable creatinine methods. https://jasn.asnjournals.org/content//ASN.83830 21994 Performed By: #### 5 7021-8 #### OMREO KNIGHT ([id number]) [facility] ([facility]) [address] [place] [address] 44518 Glucose [Mass/Vol] 191 mg/dL High 74-99 [facility] Comment on above: Performed By: #### 5 7021-8 #### OMERO KNIGHT (00143) [facility] ([facility]) [address] [place] [address] 00621 Potassium [Moles/Vol] 3.3 mmol/L Low 3.5-5.3 [facility] Comment on above: Performed By: #### 5 7021-8 #### OMERO KNIGHT (02946) [facility] ([facility]) [address] [place] [address] Sodium [Moles/Vol] 130 mmol/L Low 136-145 [facility] Comment on above: Performed By: #### 5 7021-8 #### OMERO KNIGHT (01451) [facility] ([facility]) [address] [place] [phone] Urea nitrogen [Mass/Vol] 38 mg/dL High 6-23 [facility] Comment on above: Performed By: #### 5 7021-8 #### OMERO KNIGHT (19344) [facility] ([facility]) [address] [place] [address] CBC panel Auto (Bld)on 10-11 Erythrocyte distribution width (RBC) [Ratio] 14.2 % 11.5 - 14.5 % [facility] Hematocrit (Bld) [Volume fraction] 40.3 % 36.0 - 46.0 % [facility] Hemoglobin (Bld) [Mass/Vol] 13.0 g/dL 12.0 - 16.0 g/dL [facility] Interpretation and review of laboratory results Abnormal [facility] MCH (RBC) [Entitic mass] 26.7 pg 26.0 - 34.0 pg [facility] MCHC (RBC) [Mass/Vol] 32.3 g/dL 32.0 - 36.0 g/dL [facility] MCV (RBC) [Entitic vol] 83 fL 80 - 100 fL [facility] Nucleated RBC/100 WBC (Bld) [Ratio] 0.0 % [facility] Platelets (Bld) [#/Vol] 300 10*3/uL [facility] RBC (Bld) [#/Vol] 4.86 10*6/uL [facility] WBC (Bld) [#/Vol] 23.0 10*3/uL High [facility] Erythrocyte distribution width (RBC) [Ratio] 14.2 % Normal 11.5-14.5 [facility] Comment on above: Performed By: #### 5 7021-8 #### OMERO KNIGHT ([id number]) [facility] ([facility]) [address] [place] [address] Hematocrit (Bld) [Volume fraction] 40.3 % Normal 36.0-46.0 [facility] Comment on above: Performed By: #### 5 7021-8 #### OMERO KNIGHT ([id number]) [facility] ([facility]) [address] [place] [address] Hemoglobin (Bld) [Mass/Vol] 13.0 g/dL Normal 12.0-16.0 [facility] Comment on above: Performed By: #### 5 7021-8 #### OMERO KNIGHT ([id number]) [facility] ([facility]) [address] [place] [address] MCH (RBC) [Entitic mass] 26.7 pg Normal 26.0-34.0 [facility] Comment on above: Performed By: #### 5 7021-8 #### OMERO KNIGHT ([id number]) [facility] ([facility]) [address] [place] [address] 15467 MCHC (RBC) [Mass/Vol] 32.3 g/dL Normal 32.0-36.0 [facility] Comment on above: Performed By: #### 5 7021-8 #### OMERO KNIGHT ([id number]) [facility] ([facility]) [address] [place] [address] 20109 MCV (RBC) [Entitic vol] 83 fL Normal 80-100 [facility] Comment on above: Performed By: #### 5 7021-8 #### OMERO KNIGHT ([id number]) [facility] ([facility]) [address] [place], [place] [address] Nucleated RBC/100 WBC (Bld) [Ratio] 0.0 /100 WBCs Normal 0.0-0.0 [facility] Comment on above: Performed By: #### 5 7021-8 #### OMERO KNIGHT ([id number]) [facility] ([facility]) [address] [place] [address] 73363 Platelets (Bld) [#/Vol] 300 x10*3/uL Normal 150-450 [facility] Comment on above: Performed By: #### 5 7021-8 #### OMERO KNIGHT ([id number]) [facility] ([facility]) [address] [place] [address] 06734 RBC (Bld) [#/Vol] 4.86 x10*6/uL Normal 4.00-5.20 [facility] Comment on above: Performed By: #### 5 7021-8 #### OMERO KNIGHT ([id number]) [facility] ([facility]) [address] [place] [address] 08216 WBC (Bld) [#/Vol] 23.0 x10*3/uL High 4.4-11.3 [facility] Comment on above: Performed By: #### 5 7021-8 #### OMERO KNIGHT ([id number]) [facility] ([facility]) [address] [place] [address] 31654 Glucose Test strip manual (B ld) [Mass/Vol]on 10-12-2023 Glucose [Mass/Vol] 189 mg/dL High 74 - 99 mg/dL [facility] Interpretation and review of laboratory results Abnormal [facility] Glucose [Mass/Vol] 189 mg/dL High 74-99 [facility] Comment on above: Performed By: #### 2 341-6 ####OMERO KNIGHT ([id number])[facility] ([facility])[address] [place] [address] Glucose [Mass/Vol] 264 mg/dL High 74 - 99 mg/dL [facility] Interpretation and review of laboratory results Abnormal [facility] Glucose [Mass/Vol] 264 mg/dL High 74-99 [facility] Comment on above: Performed By: #### 5 7021-8 #### OMERO KNIGHT ([id number]) [facility] ([facility]) [address] [place] [address] Glucose [Mass/Vol] 167 mg/dL High 74 - 99 mg/dL [facility] Interpretation and review of laboratory results Abnormal [facility] Glucose [Mass/Vol] 167 mg/dL High 74-99 [facility] Comment on above: Performed By: #### 5 7021-8 #### OMERO KNIGHT ([id number]) [facility] ([facility]) [facility] [place] [address] Glucose [Mass/Vol] 179 mg/dL High 74 - 99 mg/dL [facility] Interpretation and review of laboratory results Abnormal [facility] Glucose [Mass/Vol] 179 mg/dL High 74-99 [facility] Comment on above: Performed By: #### 5 7021-8 #### OMERO KNIGHT ([id number]) [facility] ([facility]) [address] [place], [place] [address] Urine CultureOrdered By: Anastasiia Messer on 10-12-2023 Bacteria identified Cx Nom (U) >100,000 Proteus mirabilis Abnormal [facility] Basic metabolic 2000 panelon 10-11-2023 Anion gap [Moles/Vol] 17 mmol/L 10 - 2 0 mmol/L [facility] Calcium [Mass/Vol] 8.6 mg/dL 8.6 - 10. 3 mg/dL [facility] Chloride [Moles/Vol] 92 mmol/L Low 98 - 10 7 mmol/L [facility] CO2 [Moles/Vol] 21 mmol/L 21 - 32 mmol/L [facility] Creatinine [Mass/Vol] 0.90 mg/dL 0.50 - 1.05 mg/dL [facility] GFR/1.73 sq M.predicted among non-blacks MDRD (S/P/Bld) [Vol rate/Area] 67 mL/min/{1.73_m2} - PINF [facility] Comment on above: Calculations of hannah mated GFR are performed using the 2020 CKD-EPI Study Refit equation without the race variable for the IDMS-Traceable creatinine methods. https://jasn.asnjournals.org/content//ASN.02669 62503 Glucose [Mass/Vol] 192 mg/dL High 74 - 99 mg/dL [facility] Interpretation and review of laboratory results Abnormal [facility] Potassium [Moles/Vol] 4.0 mmol/L 3.5 - 5.3 mmol/L [facility] Comment on above: MILD HEMOLYSIS DETEC KAYLA. The result may be falsely elevated due to hemolysis or other interferents. Clinical correlation is recommended. Repeat testing may be considered. Sodium [Moles/Vol] 126 mmol/L Low 136 - 145 mmol/L [facility] Urea nitrogen [Mass/Vol] 35 mg/dL High 6 - 23 mg/dL [facility] Anion gap [Moles/Vol] 17 mmol/L Normal 10-20 [facility] Comment on above: Performed By: #### 2 341-6 #### OMERO KNIGHT ([id number]) [facility] ([facility]) [facility] [place] [address] Calcium [Mass/Vol] 8.6 mg/dL Normal 8.6-10.3 [facility] Comment on above: Performed By: #### 2 341-6 #### OMERO KNIGHT ([id number]) [facility] ([facility]) [address] [place] [address] Chloride [Moles/Vol] 92 mmol/L Low 98-107 [facility] Comment on above: Performed By: #### 2 341-6 #### OMERO KNIGHT ([id number]) [facility] ([facility]) [facility] [place] [address] CO2 [Moles/Vol] 21 mmol/L Normal 21-32 [facility] Comment on above: Performed By: #### 2 341-6 #### OMERO KNIGHT ([id number]) [facility] ([facility]) [address] [place] [address]7725 Creatinine [Mass/Vol] 0.90 mg/dL Normal 0.50-1.05 [facility] Comment on above: Performed By: #### 2 341-6 #### OMERO KNIGHT ([id number]) [facility] ([facility]) [address] [place] [address] 24743 Glomerular filtration rate/1.73 sq M.predicted 67 mL/min/1.73m*2 Normal >60 [facility] Comment on above: Result Comment: Calc ulations of estimated GFR are performed using the 2020 CKD-EPI Study Refit equation without the race variable for the IDMS-Traceable creatinine methods. https://jasn.asnjournals.org/content/early//ASN.74990 12868 Performed By: #### 2 341-6 #### OMERO KNIGHT ([id number]) [facility] ([facility]) [address] [place] [address] 80917 Glucose [Mass/Vol] 192 mg/dL High 74-99 [facility] Comment on above: Performed By: #### 2 341-6 #### OMERO KNIGHT ([id number]) [facility] ([facility]) [address] [place] [address]45[address] Potassium [Moles/Vol] 4.0 mmol/L Normal 3.5-5.3 [facility] Comment on above: Result Comment: MILD HEMOLYSIS DETECTED. The result may be falsely elevated due to hemolysis or other interferents. Clinical correlation is recommended. Repeat testing may be considered. Performed By: #### 2 341-6 #### OMERO KNIGHT ([id number]) [facility] ([facility]) [address] [place] [address]393 Sodium [Moles/Vol] 126 mmol/L Low 136-145 [facility] Comment on above: Performed By: #### 2 341-6 #### OMERO KNIGHT ([id number]) [facility] ([facility]) [address] [place] [address]1774 Urea nitrogen [Mass/Vol] 35 mg/dL High 6-23 [facility] Comment on above: Performed By: #### 2 341-6 #### OMERO KNIGHT ([id number]) [facility] ([facility]) [address] [place] [address] CBC panel Auto (Bld)on 10-10 Erythrocyte distribution width (RBC) [Ratio] 14.2 % 11.5 - 14.5 % [facility] Hematocrit (Bld) [Volume fraction] 37.3 % 36.0 - 46.0 % [facility] Hemoglobin (Bld) [Mass/Vol] 12.3 g/dL 12.0 - 16.0 g/dL [facility] Interpretation and review of laboratory results Abnormal [facility] MCH (RBC) [Entitic mass] 27.4 pg 26.0 - 34.0 pg [facility] MCHC (RBC) [Mass/Vol] 33.0 g/dL 32.0 - 36.0 g/dL [facility] MCV (RBC) [Entitic vol] 83 fL 80 - 100 fL [facility] Nucleated RBC/100 WBC (Bld) [Ratio] 0.0 % [facility] Platelets (Bld) [#/Vol] 218 10*3/uL [facility] RBC (Bld) [#/Vol] 4.49 10*6/uL [facility] WBC (Bld) [#/Vol] 20.1 10*3/uL [facility] Erythrocyte distribution width (RBC) [Ratio] 14.2 % Normal 11.5-14.5 [facility] Comment on above: Performed By: #### 2 341-6 #### OMERO KNIGHT ([id number]) [facility] ([facility]) [address] [place] [address] Hematocrit (Bld) [Volume fraction] 37.3 % Normal 36.0-46.0 [facility] Comment on above: Performed By: #### 2 341-6 #### OMERO KNIGHT ([id number]) [facility] ([facility]) [address] [place] [address] Hemoglobin (Bld) [Mass/Vol] 12.3 g/dL Normal 12.0-16.0 [facility] Comment on above: Performed By: #### 2 341-6 #### OMERO KNIGHT ([id number]) [facility] ([facility]) [address] [place] [address] 67514 MCH (RBC) [Entitic mass] 27.4 pg Normal 26.0-34.0 [facility] Comment on above: Performed By: #### 2 341-6 #### OMERO KNIGHT ([id number]) [facility] ([facility]) [address] [place] [address] 38303 MCHC (RBC) [Mass/Vol] 33.0 g/dL Normal 32.0-36.0 [facility] Comment on above: Performed By: #### 2 341-6 #### OMERO KNIGHT ([id number]) [facility] ([facility]) [address] [place] [address] 62054 MCV (RBC) [Entitic vol] 83 fL Normal 80-100 [facility] Comment on above: Performed By: #### 2 341-6 #### OMERO KNIGHT ([id number]) [facility] ([facility]) [address] [place] [address] 45966 Nucleated RBC/100 WBC (Bld) [Ratio] 0.0 /100 WBCs Normal 0.0-0.0 [facility] Comment on above: Performed By: #### 2 341-6 #### OMERO KNIGHT ([id number]) [facility] ([facility]) [address] [place] [address] 93310 Platelets (Bld) [#/Vol] 218 x10*3/uL Normal 150-450 [facility] Comment on above: Performed By: #### 2 341-6 #### OMERO KNIGHT ([id number]) [facility] ([facility]) [address] [place] [address] 61566 RBC (Bld) [#/Vol] 4.49 x10*6/uL Normal 4.00-5.20 [facility] Comment on above: Performed By: #### 2 341-6 #### OMERO KNIGHT ([id number]) [facility] ([facility]) [address] [place] [address] 21044 WBC (Bld) [#/Vol] 20.1 x10*3/uL High 4.4-11.3 [facility] Comment on above: Performed By: #### 2 341-6 #### OMERO KNIGHT ([id number]) [facility] ([facility]) [address] [place] [address] 33833 Glucose Test strip manual (B ld) [Mass/Vol]on 10-11-2023 Glucose [Mass/Vol] 212 mg/dL High 74 - 99 mg/dL [facility] Interpretation and review of laboratory results Abnormal [facility] Glucose [Mass/Vol] 212 mg/dL High 74-99 [facility] Comment on above: Performed By: #### 5 7021-8 #### OMERO KNIGHT ([id number]) [facility] ([facility]) [address] [place] [address] 71100 Glucose [Mass/Vol] 204 mg/dL High 74 - 99 mg/dL [facility] Interpretation and review of laboratory results Abnormal [facility] Glucose [Mass/Vol] 204 mg/dL High 74-99 [facility] Comment on above: Performed By: #### 5 7021-8 #### OMERO KNIGHT ([id number]) [facility] ([facility]) [address] [place] [address] 23017 Glucose [Mass/Vol] 194 mg/dL High 74 - 99 mg/dL [facility] Interpretation and review of laboratory results Abnormal [facility] Glucose [Mass/Vol] 194 mg/dL High 74-99 [facility] Comment on above: Performed By: #### 5 7021-8 #### OMERO KNIGHT ([id number]) [facility] ([facility]) [address] [place] [address] 16391 Glucose [Mass/Vol] 182 mg/dL High 74 - 99 mg/dL [facility] Comment on above: RN/MD NOTIFIED Interpretation and review of laboratory results Abnormal [facility] Glucose [Mass/Vol] 182 mg/dL High 74-99 [facility] Comment on above: Result Comment: RN/Shaheen Licea NOTIFIED Performed By: #### 5 7021-8 #### OMERO KNIGHT ([id number]) [facility] ([facility]) [facility] [place] [address] Bacteria identifiedon 2023 Bacteria identified Cx Nom (U) Test: Urine Culture Specimen Source: Clean Catch/Voided Specimen Type: Urine Specimen Date: 10/10/2023327 Result Date: 10/12/20231546 Result Status: Final result Abnormal: Yes Resulting Lab: [facility] [id number] [place] [address] CULTURE >100,000 Proteus mirabilis (Abnormal) SUSCEPTIBILITY Proteus mirabilis METHOD MICROSCAN --- AMPICILLIN <=8.000 mcg/mL Susceptible CEFAZOLIN <=2 mcg/mL Susceptible CEFAZOLIN (UNCOMPLICATED UTIS ONLY) <=2 mcg/mL Susceptible CIPROFLOXACIN <=0.250 mcg/mL Susceptible GENTAMICIN <=2.000 mcg/mL Susceptible NITROFURANTOIN >64 mcg/mL Resistant PIPERACILLIN/TAZOBACTAM <=8.000 mcg/mL Susceptible TETRACYCLINE >8.000 mcg/mL Resistant TRIMETHOPRIM/SULFAMETHOX AZOLE <=2/38 mcg/mL Susceptible Abnormal [facility] Comment on above: Performed By: #### 5 7021-8 #### OMERO KNIGHT ([id number]) [facility] ([facility]) [address] [place], [place] [address] Basic metabolic 2000 panelon 10-10-2023 Anion gap [Moles/Vol] 14 mmol/L 10 - 2 0 mmol/L [facility] Calcium [Mass/Vol] 8.5 mg/dL Low 8.6 - 10. 3 mg/dL [facility] Chloride [Moles/Vol] 88 mmol/L Low 98 - 10 7 mmol/L [facility] CO2 [Moles/Vol] 27 mmol/L 21 - 32 mmol/L [facility] Creatinine [Mass/Vol] 1.13 mg/dL High 0.50 - 1.05 mg/dL [facility] GFR/1.73 sq M.predicted among non-blacks MDRD (S/P/Bld) [Vol rate/Area] 51 mL/min/{1.73_m2} Low - PINF [facility] Comment on above: Calculations of hannah mated GFR are performed using the 2020 CKD-EPI Study Refit equation without the race variable for the IDMS-Traceable creatinine methods. https://jasn.asnjournals.org/content/early/ASN.62090 53475 Glucose [Mass/Vol] 180 mg/dL High 74 - 99 mg/dL [facility] Interpretation and review of laboratory results Abnormal [facility] Potassium [Moles/Vol] 3.8 mmol/L 3.5 - 5.3 mmol/L [facility] Sodium [Moles/Vol] 125 mmol/L Low 136 - 145 mmol/L [facility] Urea nitrogen [Mass/Vol] 33 mg/dL High 6 - 23 mg/dL [facility] Anion gap [Moles/Vol] 14 mmol/L Normal 10-20 [facility] Comment on above: Performed By: #### 2 341-6 #### OMERO KNIGHT ([id number]) [facility] ([facility]) [address] [place] [address] 27389 Calcium [Mass/Vol] 8.5 mg/dL Low 8.6-10.3 [facility] Comment on above: Performed By: #### 2 341-6 #### OMERO KNIGHT ([id number]) [facility] ([facility]) [facility] [place] [address] Chloride [Moles/Vol] 88 mmol/L Low 98-107 [facility] Comment on above: Performed By: #### 2 341-6 #### OMERO KNIGHT ([id number]) [facility] ([facility]) [address] [place] [address] CO2 [Moles/Vol] 27 mmol/L Normal 21-32 [facility] Comment on above: Performed By: #### 2 341-6 #### OMERO KNIGHT ([id number]) [facility] ([facility]) [facility] [place] [address] Creatinine [Mass/Vol] 1.13 mg/dL High 0.50-1.05 [facility] Comment on above: Performed By: #### 2 341-6 #### OMERO KNIGHT ([id number]) [facility] ([facility]) [address] [place] [address] 41211 Glomerular filtration rate/1.73 sq M.predicted 51 mL/min/1.73m*2 Low >60 [facility] Comment on above: Result Comment: Calc ulations of estimated GFR are performed using the 2020 CKD-EPI Study Refit equation without the race variable for the IDMS-Traceable creatinine methods. https://jasn.asnjournals.org/content/early//ASN.17127 05237 Performed By: #### 2 341-6 #### OMERO KNIGHT ([id number]) [facility] ([facility]) [facility] [place] [address] Glucose [Mass/Vol] 180 mg/dL High 74-99 [facility] Comment on above: Performed By: #### 2 341-6 #### OMERO KNIGHT ([id number]) [facility] ([facility]) [facility] [place] [address] Potassium [Moles/Vol] 3.8 mmol/L Normal 3.5-5.3 [facility] Comment on above: Performed By: #### 2 341-6 #### OMERO KNIGHT ([id number]) [facility] ([facility]) [facility] [place] [address] Sodium [Moles/Vol] 125 mmol/L Low 136-145 [facility] Comment on above: Performed By: #### 2 341-6 #### OMERO KNIGHT ([id number]) [facility] ([facility]) [address] [place] [address] Urea nitrogen [Mass/Vol] 33 mg/dL High 6-23 [facility] Comment on above: Performed By: #### 2 341-6 #### OMERO KNIGHT ([id number]) [facility] ([facility]) [address] [place] [address] Anion gap [Moles/Vol] 16 mmol/L 10 - 2 0 mmol/L [facility] Calcium [Mass/Vol] 8.8 mg/dL 8.6 - 10. 3 mg/dL [facility] Chloride [Moles/Vol] 89 mmol/L Low 98 - 10 7 mmol/L [facility] CO2 [Moles/Vol] 24 mmol/L 21 - 32 mmol/L [facility] Creatinine [Mass/Vol] 1.08 mg/dL High 0.50 - 1.05 mg/dL [facility] GFR/1.73 sq M.predicted among non-blacks MDRD (S/P/Bld) [Vol rate/Area] 54 mL/min/{1.73_m2} Low - PINF [facility] Comment on above: Calculations of hannah mated GFR are performed using the 2020 CKD-EPI Study Refit equation without the race variable for the IDMS-Traceable creatinine methods. https://jasn.asnjournals.org/content//ASN.45094 76792 Glucose [Mass/Vol] 202 mg/dL High 74 - 99 mg/dL [facility] Interpretation and review of laboratory results Abnormal [facility] Potassium [Moles/Vol] 3.9 mmol/L 3.5 - 5.3 mmol/L [facility] Sodium [Moles/Vol] 125 mmol/L Low 136 - 145 mmol/L [facility] Urea nitrogen [Mass/Vol] 32 mg/dL High 6 - 23 mg/dL [facility] Anion gap [Moles/Vol] 16 mmol/L Normal 10-20 [facility] Comment on above: Performed By: #### 2 341-6 #### OMERO KNIGHT ([id number]) [facility] ([facility]) [address] [place] [address] Calcium [Mass/Vol] 8.8 mg/dL Normal 8.6-10.3 [facility] Comment on above: Performed By: #### 2 341-6 #### OMERO KNIGHT ([id number]) [facility] ([facility]) [address] [place] [address] Chloride [Moles/Vol] 89 mmol/L Low 98-107 [facility] Comment on above: Performed By: #### 2 341-6 #### OMERO KNIGHT ([id number]) [facility] ([facility]) [address] [place] [address] 44561 CO2 [Moles/Vol] 24 mmol/L Normal 21-32 [facility] Comment on above: Performed By: #### 2 341-6 #### OMERO KNIGHT ([id number]) [facility] ([facility]) [address] [place] [address] 90343 Creatinine [Mass/Vol] 1.08 mg/dL High 0.50-1.05 [facility] Comment on above: Performed By: #### 2 341-6 #### OMERO KNIGHT ([id number]) [facility] ([facility]) [address] [place] [address] 97327 Glomerular filtration rate/1.73 sq M.predicted 54 mL/min/1.73m*2 Low >60 [facility] Comment on above: Result Comment: Calc ulations of estimated GFR are performed using the 2020 CKD-EPI Study Refit equation without the race variable for the IDMS-Traceable creatinine methods. https://jasn.asnjournals.org/content//ASN.75968 36647 Performed By: #### 2 341-6 #### OMERO KNIGHT ([id number]) [facility] ([facility]) [facility] [place] [address] Glucose [Mass/Vol] 202 mg/dL High 74-99 [facility] Comment on above: Performed By: #### 2 341-6 #### OMERO KNIGHT ([id number]) [facility] ([facility]) [facility] [place] [address] Potassium [Moles/Vol] 3.9 mmol/L Normal 3.5-5.3 [facility] Comment on above: Performed By: #### 2 341-6 #### OMERO KNIGHT ([id number]) [facility] ([facility]) [address] [place] [address] Sodium [Moles/Vol] 125 mmol/L Low 136-145 [facility] Comment on above: Performed By: #### 2 341-6 #### OMERO KNIGHT ([id number]) [facility] ([facility]) [facility] [place] [address] Urea nitrogen [Mass/Vol] 32 mg/dL High 6-23 [facility] Comment on above: Performed By: #### 2 341-6 #### OMERO KNIGHT ([id number]) [facility] ([facility]) [facility] [place] [address] Anion gap [Moles/Vol] 17 mmol/L [facility] Calcium [Mass/Vol] 9.3 mg/dL 8.6 - 10. 3 mg/dL [facility] Chloride [Moles/Vol] 86 mmol/L Low 98 - 10 7 mmol/L [facility] CO2 [Moles/Vol] 27 mmol/L 21 - 32 mmol/L [facility] Creatinine [Mass/Vol] 1.09 mg/dL High 0.50 - 1.05 mg/dL [facility] GFR/1.73 sq M.predicted among non-blacks MDRD (S/P/Bld) [Vol rate/Area] 53 mL/min/{1.73_m2} Low - PINF [facility] Comment on above: Calculations of hannah mated GFR are performed using the 2020 CKD-EPI Study Refit equation without the race variable for the IDMS-Traceable creatinine methods. https://jasn.asnjournals.org/content/early/ASN.17624 31936 Glucose [Mass/Vol] 171 mg/dL High 74 - 99 mg/dL [facility] Interpretation and review of laboratory results Abnormal [facility] Potassium [Moles/Vol] 4.2 mmol/L 3.5 - 5.3 mmol/L [facility] Sodium [Moles/Vol] 126 mmol/L Low 136 - 145 mmol/L [facility] Urea nitrogen [Mass/Vol] 31 mg/dL High 6 - 23 mg/dL [facility] Anion gap [Moles/Vol] 17 mmol/L Normal [facility] Comment on above: Performed By: #### 2 4321-2 #### OMERO KNIGHT ([id number]) [facility] ([facility]) [address] [place] [address] Calcium [Mass/Vol] 9.3 mg/dL Normal 8.6-10.3 [facility] Comment on above: Performed By: #### 2 4321-2 #### OMERO KNIGHT ([id number]) [facility] ([facility]) [address] [place] [address] Chloride [Moles/Vol] 86 mmol/L Low 98-107 [facility] Comment on above: Performed By: #### 2 4321-2 #### OMERO KNIGHT ([id number]) [facility] ([facility]) [address] [place] [address] CO2 [Moles/Vol] 27 mmol/L Normal 21-32 [facility] Comment on above: Performed By: #### 2 4321-2 #### OMERO KNIGHT ([id number]) [facility] ([facility]) [facility] [place] [address] Creatinine [Mass/Vol] 1.09 mg/dL High 0.50-1.05 [facility] Comment on above: Performed By: #### 2 4321-2 #### OMERO KNIGHT ([id number]) [facility] ([facility]) [address] [place] [address] Glomerular filtration rate/1.73 sq M.predicted 53 mL/min/1.73m*2 Low >60 [facility] Comment on above: Result Comment: Calc ulations of estimated GFR are performed using the 2020 CKD-EPI Study Refit equation without the race variable for the IDMS-Traceable creatinine methods. https://jasn.asnjournals.org/content/early/ASN.39573 34974 Performed By: #### 2 4321-2 #### OMERO KNIGHT ([id number]) [facility] ([facility]) [address] [place] [address] Glucose [Mass/Vol] 171 mg/dL High 74-99 [facility] Comment on above: Performed By: #### 2 4321-2 #### OMERO KNIGHT ([id number]) [facility] ([facility]) [address] [place] [address] Potassium [Moles/Vol] 4.2 mmol/L Normal 3.5-5.3 [facility] Comment on above: Performed By: #### 2 4321-2 #### OMERO KNIGHT ([id number]) [facility] ([facility]) [address] [place] [address] Sodium [Moles/Vol] 126 mmol/L Low 136-145 [facility] Comment on above: Performed By: #### 2 4321-2 #### OMERO KNIGHT ([id number]) [facility] ([facility]) [address] [place] [address] Urea nitrogen [Mass/Vol] 31 mg/dL High 6-23 [facility] Comment on above: Performed By: #### 2 4321-2 #### OMERO KNIGHT ([id number]) [facility] ([facility]) [address] [place] [address] CBC W Auto Differential pane l (Bld)on 10-10-2023 Basophils (Bld) [#/Vol] 0.05 10*3/uL [facility] Basophils/100 WBC (Bld) 0.3 % 0.0 - 2.0 % [facility] Eosinophils (Bld) [#/Vol] 0.03 10*3/uL [facility] Eosinophils/100 WBC (Bld) 0.2 % 0.0 - 6.0 % [facility] Erythrocyte distribution width (RBC) [Ratio] 13.9 % 11.5 - 14.5 % [facility] Hematocrit (Bld) [Volume fraction] 41.4 % 36.0 - 46.0 % [facility] Hemoglobin (Bld) [Mass/Vol] 13.6 g/dL 12.0 - 16.0 g/dL [facility] Immature granulocytes (Bld) [#/Vol] 0.23 10*3/uL [facility] Immature granulocytes/100 WBC (Bld) 1.3 % High 0.0 - 0.9 % [facility] Comment on above: Immature Granulocyte Count (IG) includes promyelocytes, myelocytes and metamyelocytes but does not include bands. Percent differential counts (%) should be interpreted in the context of the absolute cell counts (cells/UL). Interpretation and review of laboratory results Abnormal [facility] Lymphocytes (Bld) [#/Vol] 0.76 10*3/uL Low [facility] Lymphocytes/100 WBC (Bld) 4.4 % 13.0 - 44.0 % [facility] MCH (RBC) [Entitic mass] 27.0 pg 26.0 - 34.0 pg [facility] MCHC (RBC) [Mass/Vol] 32.9 g/dL 32.0 - 36.0 g/dL [facility] MCV (RBC) [Entitic vol] 82 fL 80 - 100 fL [facility] Monocytes (Bld) [#/Vol] 0.88 10*3/uL High [facility] Monocytes/100 WBC (Bld) 5.1 % 2.0 - 10.0 % [facility] Neutrophils (Bld) [#/Vol] 15.29 10*3/uL High [facility] Comment on above: Percent differential counts (%) should be interpreted in the context of the absolute cell counts (cells/uL). Neutrophils/100 WBC (Bld) 88.7 % 40.0 - 80.0 % [facility] Nucleated RBC/100 WBC (Bld) [Ratio] 0.0 % [facility] Platelets (Bld) [#/Vol] 251 10*3/uL [facility] RBC (Bld) [#/Vol] 5.03 10*6/uL [facility] WBC (Bld) [#/Vol] 17.2 10*3/uL High [facility] Basophils (Bld) [#/Vol] 0.05 x10*3/uL Normal 0.00-0.10 [facility] Comment on above: Performed By: #### 5 7021-8 #### OMERO KNIGHT ([id number]) [facility] ([facility]) [address] [place] [address] Basophils/100 WBC (Bld) 0.3 % Normal 0.0-2.0 [facility] Comment on above: Performed By: #### 5 7021-8 #### OMERO KNIGHT ([id number]) [facility] ([facility]) [address] [place] [address] Eosinophils (Bld) [#/Vol] 0.03 x10*3/uL Normal 0.00-0.40 [facility] Comment on above: Performed By: #### 5 7021-8 #### OMERO KNIGHT ([id number]) [facility] ([facility]) [address] [place] [address] Eosinophils/100 WBC (Bld) 0.2 % Normal 0.0-6.0 [facility] Comment on above: Performed By: #### 5 7021-8 #### OMERO KNIGHT ([id number]) [facility] ([facility]) [address] [place] [address] Erythrocyte distribution width (RBC) [Ratio] 13.9 % Normal 11.5-14.5 [facility] Comment on above: Performed By: #### 5 7021-8 #### OMERO KNIGHT ([id number]) [facility] ([facility]) [address] [place] [address] Hematocrit (Bld) [Volume fraction] 41.4 % Normal 36.0-46.0 [facility] Comment on above: Performed By: #### 5 7021-8 #### OMERO KNIGHT ([id number]) [facility] ([facility]) [address] [place] [address]91 Hemoglobin (Bld) [Mass/Vol] 13.6 g/dL Normal 12.0-16.0 [facility] Comment on above: Performed By: #### 5 7021-8 #### OMERO KNIGHT ([id number]) [facility] ([facility]) [address] [place] [address] Immature granulocytes (Bld) [#/Vol] 0.23 x10*3/uL Normal 0.00-0.50 [facility] Comment on above: Performed By: #### 5 7021-8 #### OMERO KNIGHT ([id number]) [facility] ([facility]) [address] [place] [address] Immature granulocytes/100 WBC (Bld) 1.3 % High 0.0-0.9 [facility] Comment on above: Result Comment: Martina ture Granulocyte Count (IG) includes promyelocytes, myelocytes and metamyelocytes but does not include bands. Percent differential counts (%) should be interpreted in the context of the absolute cell counts (cells/UL). Performed By: #### 5 7021-8 #### OMERO KNIGHT ([id number]) [facility] ([facility]) [address] [place] [address] 16184 Lymphocytes (Bld) [#/Vol] 0.76 x10*3/uL Low 0.80-3.00 [facility] Comment on above: Performed By: #### 5 7021-8 #### OMERO KNIGHT ([id number]) [facility] ([facility]) [address] [place] [address]9736 Lymphocytes/100 WBC (Bld) 4.4 % Normal 13.0-44.0 [facility] Comment on above: Performed By: #### 5 7021-8 #### OMERO KNIGHT ([id number]) [facility] ([facility]) [address] [place] [address] MCH (RBC) [Entitic mass] 27.0 pg Normal 26.0-34.0 [facility] Comment on above: Performed By: #### 5 7021-8 #### OMERO KNIGHT (20940) [facility] ([facility]) [address] [place] [address] MCHC (RBC) [Mass/Vol] 32.9 g/dL Normal 32.0-36.0 [facility] Comment on above: Performed By: #### 5 7021-8 #### OMERO KNIGHT (45064) [facility] ([facility]) [address] [place] [address] MCV (RBC) [Entitic vol] 82 fL Normal 80-100 [facility] Comment on above: Performed By: #### 5 7021-8 #### OMERO KNIGHT (39509) [facility] ([facility]) [address] [place], [place] [address] Monocytes (Bld) [#/Vol] 0.88 x10*3/uL High 0.05-0.80 [facility] Comment on above: Performed By: #### 5 7021-8 #### OMERO KNIGHT (10249) [facility] ([facility]) [address] [place] [address] Monocytes/100 WBC (Bld) 5.1 % Normal 2.0-10.0 [facility] Comment on above: Performed By: #### 5 7021-8 #### OMERO KNIGHT (84854) [facility] ([facility]) [address] [place] [address]37 Neutrophils (Bld) [#/Vol] 15.29 x10*3/uL High 1.60-5.50 [facility] Comment on above: Result Comment: Perc ent differential counts (%) should be interpreted in the context of the absolute cell counts (cells/uL). Performed By: #### 5 7021-8 #### OMERO KNIGHT (79314) [facility] ([facility]) [address] [place] [address] Neutrophils/100 WBC (Bld) 88.7 % Normal 40.0-80.0 [facility] Comment on above: Performed By: #### 5 7021-8 #### OMERO KNIGHT ([id number]) [facility] ([facility]) [address] [place] [address] 87790 Nucleated RBC/100 WBC (Bld) [Ratio] 0.0 /100 WBCs Normal 0.0-0.0 [facility] Comment on above: Performed By: #### 5 7021-8 #### OMERO KNIGHT ([id number]) [facility] ([facility]) [address] [place] [address]3437 Platelets (Bld) [#/Vol] 251 x10*3/uL Normal 150-450 [facility] Comment on above: Performed By: #### 5 7021-8 #### OMERO KNIGHT ([id number]) [facility] ([facility]) [address] [place] [address] 43681 RBC (Bld) [#/Vol] 5.03 x10*6/uL Normal 4.00-5.20 [facility] Comment on above: Performed By: #### 5 7021-8 #### OMERO KNIGHT ([id number]) [facility] ([facility]) [address] [place] [address] WBC (Bld) [#/Vol] 17.2 x10*3/uL High 4.4-11.3 [facility] Comment on above: Performed By: #### 5 7021-8 #### OMERO KNIGHT ([id number]) [facility] ([facility]) [address] [place] [address]243 CBC panel Auto (Bld)on 10-09 Erythrocyte distribution width (RBC) [Ratio] 13.9 % 11.5 - 14.5 % [facility] Hematocrit (Bld) [Volume fraction] 36.1 % 36.0 - 46.0 % [facility] Hemoglobin (Bld) [Mass/Vol] 11.8 g/dL Low 12.0 - 16.0 g/dL [facility] Interpretation and review of laboratory results Abnormal [facility] MCH (RBC) [Entitic mass] 26.9 pg 26.0 - 34.0 pg [facility] MCHC (RBC) [Mass/Vol] 32.7 g/dL 32.0 - 36.0 g/dL [facility] MCV (RBC) [Entitic vol] 82 fL 80 - 100 fL [facility] Nucleated RBC/100 WBC (Bld) [Ratio] 0.0 % [facility] Platelets (Bld) [#/Vol] 210 10*3/uL [facility] RBC (Bld) [#/Vol] 4.39 10*6/uL [facility] WBC (Bld) [#/Vol] 26.0 10*3/uL High [facility] Erythrocyte distribution width (RBC) [Ratio] 13.9 % Normal 11.5-14.5 [facility] Comment on above: Performed By: #### 2 341-6 #### OMERO KNIGHT (04986) [facility] ([facility]) [address] [place] [address]51 Hematocrit (Bld) [Volume fraction] 36.1 % Normal 36.0-46.0 [facility] Comment on above: Performed By: #### 2 341-6 #### OMERO KNIGHT (75332) [facility] ([facility]) [address] [place] [address]247 Hemoglobin (Bld) [Mass/Vol] 11.8 g/dL Low 12.0-16.0 [facility] Comment on above: Performed By: #### 2 341-6 #### OMERO KNIGHT (49268) [facility] ([facility]) [address] [place] [address] 80860 MCH (RBC) [Entitic mass] 26.9 pg Normal 26.0-34.0 [facility] Comment on above: Performed By: #### 2 341-6 #### OMERO KNIGHT (64482) [facility] ([facility]) [address] [place] [address]131 MCHC (RBC) [Mass/Vol] 32.7 g/dL Normal 32.0-36.0 [facility] Comment on above: Performed By: #### 2 341-6 #### MOERO KNIGHT (64513) [facility] ([facility]) [address] [place] [address] MCV (RBC) [Entitic vol] 82 fL Normal 80-100 [facility] Comment on above: Performed By: #### 2 341-6 #### OMERO KNIGHT (48393) [facility] ([facility]) [address] [place] [address] Nucleated RBC/100 WBC (Bld) [Ratio] 0.0 /100 WBCs Normal 0.0-0.0 [facility] Comment on above: Performed By: #### 2 341-6 #### OMERO KNIGHT (50891) [facility] ([facility]) [address] [place] [address] Platelets (Bld) [#/Vol] 210 x10*3/uL Normal 150-450 [facility] Comment on above: Performed By: #### 2 341-6 #### OMERO KNIGHT ([id number]) [facility] ([facility]) [address] [place] [address] RBC (Bld) [#/Vol] 4.39 x10*6/uL Normal 4.00-5.20 [facility] Comment on above: Performed By: #### 2 341-6 #### OMERO KNIGHT ([id number]) [facility] ([facility]) [address] [place] [address] WBC (Bld) [#/Vol] 26.0 x10*3/uL High 4.4-11.3 [facility] Comment on above: Performed By: #### 2 341-6 #### OMERO KNIGHT ([id number]) [facility] ([facility]) [address] [place] [address] CT ABDOMEN PELVIS WO IV CONT [facility] 10-10-2023 CT ABDOMEN PELVIS WO IV CONTRAST Interpreted By: Haidary, Ahmad, STUDY: CT ABDOMEN PELVIS WO IV CONTRAST; 10/10/2023 2:45 am INDICATION: Signs/Symptoms:back pain w/o injury. COMPARISON: CT scan of the abdomen 01/05/2020 ACCESSION NUMBER(S): [id number] ORDERING CLINICIAN: FLAVIO AQUINO TECHNIQUE: Axial noncontrast [...] Normal caliber. GALLBLADDER: Status post cholecystectomy. PANCREAS: Xkha-ej-jkekqwno fatty atrophy of the pancreas. SPLEEN: Splenomegaly [...] Vlad Araya 10/10/2023 3:17 AM Dictation workstation: [id number] [facility] CT Abdomen WO contraston Several [...] Vlad Araya 10/10/2023 3:17 AM Dictation workstation: [id number] Interpreted By: Vlad Schneider, STUDY: CT ABDOMEN PELVIS WO IV CONTRAST; 10/10/2023 2:45 am INDICATION: Signs/Symptoms:back pain w/o injury. COMPARISON: CT scan of the abdomen 01/05/2020 ACCESSION NUMBER(S): [id number] ORDERING CLINICIAN: FLAVIO AQUINO TECHNIQUE: Axial noncontrast [...] Normal caliber. GALLBLADDER: Status post cholecystectomy. PANCREAS: Zryo-[id number] fatty atrophy of the pancreas. SPLEEN: Splenomegaly [...] scan of the abdomen 01/05/2020 ACCESSION NUMBER(S): [id number] ORDERING CLINICIAN: FLAVIO AQUINO TECHNIQUE: Axial noncontrast [...] Normal caliber. GALLBLADDER: Status post cholecystectomy. PANCREAS: Qpjs-hb-mqgrdepo fatty atrophy of the pancreas. SPLEEN: Splenomegaly [...] Vlad Araya 10/10/2023 3:17 AM Dictation workstation: [id number] [facility] Work Phone: [facility] Work Phone: Radiology Study observation (narrative) [facility] Work Phone: ECG 12-LEADon 10-10-2023 ECG 12-LEAD Ventricular Rate 112 QRS Duration 106 Q-T Interval 338 QTC Calculation(Bazett) 461 R Lodi -62 T Lodi 104 QRS Count 19 Q Onset 208 T Offset 377 QTC Fredericia 416 Diagnosis Atrial fibrillation with rapid ventricular response with premature ventricular or aberrantly conducted complexes Left anterior fascicular block Possible Anterior infarct , age undetermined ST & T wave abnormality, consider lateral ischemia Abnormal ECG See ED provider note for full interpretation and clinical correlation Confirmed by Sophie Florian ([id number]) on 10/18/2023 8:16:18 PM Normal [facility] Glucose Test strip manual (B ld) [Mass/Vol]on 10-10-2023 Glucose [Mass/Vol] 178 mg/dL High 74 - 99 mg/dL [facility] Interpretation and review of laboratory results Abnormal [facility] Glucose [Mass/Vol] 178 mg/dL High 74-99 [facility] Comment on above: Performed By: #### 2 341-6 #### OMERO KNIGHT ([id number]) [facility] ([facility]) [address] [place] [address]879 Glucose [Mass/Vol] 209 mg/dL High 74 - 99 mg/dL [facility] Interpretation and review of laboratory results Abnormal [facility] Glucose [Mass/Vol] 209 mg/dL High 74-99 [facility] Comment on above: Performed By: #### 2 341-6 #### OMERO KNIGHT ([id number]) [facility] ([facility]) [address] [place] [address] 85885 Glucose [Mass/Vol] 187 mg/dL High 74 - 99 mg/dL [facility] Interpretation and review of laboratory results Abnormal [facility] Glucose [Mass/Vol] 187 mg/dL High 74-99 [facility] Comment on above: Performed By: #### 2 341-6 #### OMERO KNIGHT (50100) [facility] ([facility]) [address] [place] [address] 84815 Glucose [Mass/Vol] 215 mg/dL High 74 - 99 mg/dL [facility] Interpretation and review of laboratory results Abnormal [facility] Glucose [Mass/Vol] 215 mg/dL High 74-99 [facility] Comment on above: Performed By: #### 2 341-6 #### OMERO KNIGHT ([id number]) [facility] ([facility]) [address] [place] [address] 09710 Glucose [Mass/Vol] 174 mg/dL High 74 - 99 mg/dL [facility] Comment on above: RN/ NOTIFIED Interpretation and review of laboratory results Abnormal [facility] Glucose [Mass/Vol] 174 mg/dL High 74-99 [facility] Comment on above: Result Comment: RN/Shaheen Licea NOTIFIED Performed By: #### 2 341-6 #### OMERO KNIGHT (52012) [facility] ([facility]) [facility] [place] [address] Lavender Topon 10-10-2023 Extra Tube Hold for add-ons. [facility] Comment on above: Auto resulted. [facility] Natriuretic peptide B [Mass/ Vol]on 10-10-2023 Interpretation and review of laboratory results Abnormal [facility] Natriuretic peptide B (Bld) [Mass/Vol] 225 pg/mL High 0 - 99 pg/mL [facility] <100 pg/mL - Heart failure unlikely 100-299 pg/mL - Intermediate probability of acute heart failure exacerbation. Correlate with clinical context and patient history. >=300 pg/mL - Heart Failure likely. Correlate with clinical context and patient history. BNP testing is performed using different testing methodology at [facility] than at other [facility]. Direct result comparisons should only be made within the same method. [facility] Natriuretic peptide B (Bld) [Mass/Vol] 225 pg/mL High 0-99 [facility] Comment on above: Order Comment: <100 pg/mL - Heart failure unlikely 100-299 pg/mL - Intermediate probability of acute heart failure exacerbation. Correlate with clinical context and patient history. >=300 pg/mL - Heart Failure likely. Correlate with clinical context and patient history. BNP testing is performed using different testing methodology at [facility] than at other [facility]. Direct result comparisons should only be made within the same method. Performed By: #### 3 0934-4 #### OMERO KNIGHT ([id number]) [facility] ([facility]) [facility] [place] [address] Tropinin I.cardiac panel Hig h sensitivity methodon 10-10-2023 Interpretation and review of laboratory results Normal [facility] Less than 99th percentile of normal [...] using a different testing methodology at [facility] than [facility]. Direct result comparisons should only be made within the same method. [facility] Interpretation and review of laboratory results Normal [facility] Less than 99th percentile of normal [...] using a different testing methodology at [facility] than [facility]. Direct result comparisons should only be made within the same method. [facility] Troponin I, High Sensitivity , Initialon 10-10-2023 Tropinin I.cardiac panel High sensitivity method 12 ng/L 0 - 13 ng/L [facility] Troponin I.cardiac panelon 0 10-10-2023 Tropinin I.cardiac panel High sensitivity method 12 ng/L Normal 0-13 [facility] Comment on above: Order Comment: Less than [...] using a different testing methodology at [facility] than at other [facility]. Direct result comparisons should only be made within the same method. Performed By: #### 8 9577-1 #### OMERO KNIGHT ([id number]) [facility] ([facility]) [facility] [place] [address] Tropinin I.cardiac panel High sensitivity method 12 ng/L Normal 0-13 [facility] Comment on above: Order Comment: Less than [...] using a different testing methodology at [facility] than [facility]. Direct result comparisons should only be made within the same method. Performed By: #### 8 9577-1 #### OMERO KNIGHT ([id number]) [facility] ([facility]) [address] [place] [address] Troponin, High Sensitivity, 1 Houron 10-10-2023 Tropinin I.cardiac panel High sensitivity method 12 ng/L 0 - 13 ng/L [facility] Urinalysis complete W Reflex Culture panel (U)Ordered By: Diana Barros on 10-10-2023 Appearance (U) Turbid Abnormal Clear [facility] Bilirubin (U) [Mass/Vol] Negative NEGATIVE [facility] Color (U) Yellow Light-Yellow , Yellow, Dark-Yellow [facility] Glucose Auto test strip (U) [Mass/Vol] Normal Normal mg/dL [facility] Interpretation and review of laboratory results Abnormal [facility] Ketones (U) [Mass/Vol] 10 (1+) Abnormal NEGAT JORGE mg/dL [facility] Leukocyte esterase Auto test strip Ql (U) 500 Ray/ L Abnormal NEGATIVE [facility] Nitrite Auto test strip Ql (U) 2+ Abnormal NEGATIVE [facility] pH (U) 8.0 [pH] 5.0, 5.5, 6.0, 6.5, 7.0, 7.5, 8.0 [facility] Protein (U) [Mass/Vol] 70 (1+) Abnormal NEGAT JORGE, 10 (TRACE), 20 (TRACE) mg/dL [facility] RBC (U) [#/Vol] 0.1 (1+) Abnormal NEGATIVE [facility] Specific gravity (U) [Rel density] 1.027 1.005 - 1.035 [facility] Urobilinogen (U) [Mass/Vol] 3 (1+) Abnormal Normal mg/dL [facility] Comment on above: Some pigments and me dications may cause a false positive urobilinogen. [facility] Urinalysis complete W Reflex Culture panel (U)on 10-10-2023 Appearance (U) Turbid Normal Clear [facility] Comment on above: Performed By: #### 5 8077-9 #### OMERO KNIGHT ([id number]) [facility] ([facility]) [address] [place] [address] Bilirubin (U) [Mass/Vol] Negative Normal NEGATIVE [facility] Comment on above: Performed By: #### 5 8077-9 #### OMERO KNIGHT ([id number]) [facility] ([facility]) [address] [place] [address] Color (U) Yellow Normal Light-Yellow , Yellow, Dark-Yellow [facility] Comment on above: Performed By: #### 5 8077-9 #### OMERO KNIGHT ([id number]) [facility] ([facility]) [address] [place] [address]12[address] Glucose Auto test strip (U) [Mass/Vol] Normal Normal Normal [facility] Comment on above: Performed By: #### 5 8077-9 #### OMERO KNIGHT ([id number]) [facility] ([facility]) [address] [place] [address] Ketones (U) [Mass/Vol] 10 (1+) Abnormal NEGATIVE [facility] Comment on above: Performed By: #### 5 8077-9 #### OMERO KNIGHT ([id number]) [facility] ([facility]) [address] [place] [address] Leukocyte esterase Auto test strip Ql (U) 500 Ray/???L Abnormal NEGATIVE [facility] Comment on above: Performed By: #### 5 8077-9 #### OMERO KNIGHT ([id number]) [facility] ([facility]) [address] [place] [address]65 Nitrite Auto test strip Ql (U) 2+ Abnormal NEGATIVE [facility] Comment on above: Performed By: #### 5 8077-9 #### OMERO KNIGHT ([id number]) [facility] ([facility]) [address] [place] [address] pH (U) 8.0 [pH] Normal 5.0, 5.5, 6.0, 6.5, 7.0, 7.5, 8.0 [facility] Comment on above: Performed By: #### 5 8077-9 #### OMERO KNIGHT ([id number]) [facility] ([facility]) [address] [place] [address] Protein (U) [Mass/Vol] 70 (1+) Abnormal NEGAT JORGE, 10 (TRACE), 20 (TRACE) [facility] Comment on above: Performed By: #### 5 8077-9 #### OMERO KNIGHT ([id number]) [facility] ([facility]) [address] [place] [address]937 RBC (U) [#/Vol] 0.1 (1+) Abnormal NEGATIVE [facility] Comment on above: Performed By: #### 5 8077-9 #### OMERO KNIGHT ([id number]) [facility] ([facility]) [address] [place] [address] Specific gravity (U) [Rel density] 1.027 Normal 1.005-1.035 [facility] Comment on above: Performed By: #### 5 8077-9 #### OMERO KNIGHT (88596) [facility] ([facility]) [address] [place] [address] Urobilinogen (U) [Mass/Vol] 3 (1+) Abnormal Normal [facility] Comment on above: Result Comment: Some pigments and medications may cause a false positive urobilinogen. Performed By: #### 5 8077-9 #### OMERO KNIGHT (15143) [facility] ([facility]) [address] [place] [address] Urinalysis microscopic panel Auto Ql (U)on 10-10-2023 Bacteria Auto (Urine sed) [#/Area] 1+ Abnormal NONE SEEN /HPF [facility] Crystals.amorphous Computer assisted (U) [#/Area] 1+ NONE, 1+, 2+ /HPF [facility] Epithelial cells.squamous Auto (Urine sed) [#/Area] 1-9 (SPARSE) Reference range not established. /HPF [facility] Interpretation and review of laboratory results Abnormal [facility] Mucus Auto (Urine sed) [#/Area] FEW Reference range not established. /LPF [facility] RBC Auto (Urine sed) [#/Area] 3-5 NONE, 1-2, 3-5 /HPF [facility] WBC Auto (Urine sed) [#/Area] 21-50 Abnormal 1-5, NONE /HPF [facility] Bacteria Auto (Urine sed) [#/Area] 1+ /HPF Abnormal NONE SEEN [facility] Comment on above: Performed By: #### 2 341-6 #### OMERO KNIGHT ([id number]) [facility] ([facility]) [address] [place] [address] Crystals.amorphous Computer assisted (U) [#/Area] 1+ /HPF Normal NONE, 1+, 2+ [facility] Comment on above: Performed By: #### 2 341-6 #### OMERO KNIGHT ([id number]) [facility] ([facility]) [address] [place] [address] Epithelial cells.squamous Auto (Urine sed) [#/Area] 1-9 (SPARSE) Normal Reference range not established. [facility] Comment on above: Performed By: #### 2 341-6 #### OMERO KNIGHT ([id number]) [facility] ([facility]) [address] [place] [address]75 Mucus Auto (Urine sed) [#/Area] FEW Normal Reference range not established. [facility] Comment on above: Performed By: #### 2 341-6 #### OMERO KNIGHT (75261) [facility] ([facility]) [address] [place] [address]9038 RBC Auto (Urine sed) [#/Area] 3-5 Normal NONE, 1-2, 3-5 [facility] Comment on above: Performed By: #### 2 341-6 #### OMERO KNIGHT (64991) [facility] ([facility]) [address] [place] [address] WBC Auto (Urine sed) [#/Area] 21-50 Abnormal 1-5, NONE [facility] Comment on above: Performed By: #### 2 341-6 #### OMERO KNIGHT ([id number]) [facility] ([facility]) [address] [place] [address] XR CHEST 1 VIEWon 10-10-2023 XR CHEST 1 VIEW Interpreted By: Vlad Schneider, STUDY: XR CHEST 1 VIEW; 10/10/2023 2:03 am INDICATION: Signs/Symptoms:weakness. COMPARISON: Chest x-ray 09/08/2022 ACCESSION NUMBER(S): [id number] ORDERING CLINICIAN: FLAVIO AQUINO FINDINGS: Multiple overlying leads are present. CARDIOMEDIASTINAL SILHOUETTE: Cardiomediastinal silhouette is stable in size and configuration. LUNGS: No consolidation, pleural effusion or pneumothorax. ABDOMEN: No remarkable upper abdominal findings. BONES: Multilevel degenerative changes of the spine. Bilateral shoulder osteoarthrosis. IMPRESSION: No acute cardiopulmonary process. MACRO: None Signed by: Vlad Araya 10/10/2023 2:11 AM Dictation workstation: [id number] Normal [facility] XR Chest Single viewon 10-09 No acute cardiopulmo nary process. MACRO: None Signed by: Vlad Araya 10/10/2023 2:11 AM Dictation workstation: [id number] MMODAL Interpreted By: Vlad Schneider, STUDY: XR CHEST 1 VIEW; 10/10/2023 2:03 am INDICATION: Signs/Symptoms:weakness. COMPARISON: Chest x-ray 09/08/2022 ACCESSION NUMBER(S): [id number] ORDERING CLINICIAN: FLAVIO AQUINO FINDINGS: Multiple overlying [...] Signs/Symptoms:weakness. COMPARISON: Chest x-ray 09/08/2022 ACCESSION NUMBER(S): [id number] ORDERING CLINICIAN: FLAVIO AQUINO FINDINGS: Multiple overlying leads are present. CARDIOMEDIASTINAL SILHOUETTE: Cardiomediastinal silhouette is stable in size and configuration. LUNGS: No consolidation, pleural effusion or pneumothorax. ABDOMEN: No remarkable upper abdominal findings. BONES: Multilevel degenerative changes of the spine. Bilateral shoulder osteoarthrosis. IMPRESSION: No acute cardiopulmonary process. MACRO: None Signed by: Vlad Araya 10/10/2023 2:11 AM Dictation workstation: [id number] [facility] Work Phone: Radiology Study observation (narrative) [facility] Work Phone: XR Chest Single viewOrdered By: Vlad Araya on 10-10-2023 [facility] Work Phone: ALKALINE PHOSPHATASE, ISOENZ YMESon 08-03-2023 ALP [Catalytic activity/Vol] 132 U/L High 40-120 [facility] Comment on above: Performed By: #### 1 9123-9 #### OMERO KNIGHT ([id number]) [facility] ([facility]) [address] [place] [address]2092 ALP Bone [Catalytic activity/Vol] 42 U/L Normal 0-55 [facility] Comment on above: Performed By: #### 1 9123-9 #### OMERO KNIGHT ([id number]) [facility] ([facility]) [address] [place] [address]02 ALP Liver [Catalytic activity/Vol] 90 U/L Normal 0-94 [facility] Comment on above: Result Comment: INTE RPRETIVE INFORMATION: Alk-Phosphatase Liver Calc Bone Specific Alkaline Phosphatase (4437201) and 5'-nucleotidase (1436180) may be useful in identifying disorders of bone and liver, respectively. Performed By: #### 1 9123-9 #### OMERO KNIGHT ([id number]) [facility] ([facility]) [address] [place] [address] 14959 ALP Other [Catalytic activity/Vol] 0 U/L Normal [facility] Comment on above: Result Comment: Perf ormed By: [employer] [address] [place] [address] Belting Inspector: Shayan Licona MD, PhD CLIA Number: [id number] Performed By: #### 1 9123-9 #### OMERO KNIGHT ([id number]) [facility] ([facility]) [address] [place] [address] 72362 Gamma glutamyl transferaseon 08-03-2023 Gamma glutamyl transferase [Catalytic activity/Vol] 26 U/L Normal 5-55 [facility] Comment on above: Performed By: #### 1 9123-9 #### OMERO KNIGHT ([id number]) [facility] ([facility]) [address] [place] [address] 74944 Hepatic function 2000 panelo n 08-03-2023 Albumin BCP dye [Mass/Vol] 4.1 g/dL Normal 3.4-5.0 [facility] Comment on above: Performed By: #### 1 9123-9 #### OMERO KNIGHT ([id number]) [facility] ([facility]) [address] [place] [address] ALP [Catalytic activity/Vol] 113 U/L Normal 33-136 [facility] Comment on above: Performed By: #### 1 9123-9 #### OMERO KNIGHT ([id number]) [facility] ([facility]) [address] [place] [address] ALT With P-5'-P [Catalytic activity/Vol] 12 U/L Normal 7-45 [facility] Comment on above: Result Comment: Madhavi ents treated with Sulfasalazine may generate falsely decreased results for ALT. Performed By: #### 1 9123-9 #### OMERO KNIGHT ([id number]) [facility] ([facility]) [address] [place] [address] AST With P-5'-P [Catalytic activity/Vol] 19 U/L Normal 9-39 [facility] Comment on above: Performed By: #### 1 9123-9 #### OMERO KNIGHT ([id number]) [facility] ([facility]) [address] [place] [address] Bilirubin [Mass/Vol] 0.5 mg/dL Normal 0.0-1.2 [facility] Comment on above: Performed By: #### 1 9123-9 #### OMERO KNIGHT (22073) [facility] ([facility]) [address] [place] [address]1224 Bilirubin.direct [Mass/Vol] 0.1 mg/dL Normal 0.0-0.3 [facility] Comment on above: Performed By: #### 1 9123-9 #### OMERO KNIGHT ([id number]) [facility] ([facility]) [address] [place] [address] 08070 Protein [Mass/Vol] 7.1 g/dL Normal 6.4-8.2 [facility] Comment on above: Performed By: #### 1 9123-9 #### OMERO KNIGHT (99461) [facility] ([facility]) [address] [place] [address] 11260 XR FOOT RIGHT 3+ VIEWSon XR FOOT RIGHT 3+ VIEWS Interpreted By: Conner Burk, STUDY: XR FOOT RIGHT 3+ VIEWS; ; 06/10/2023 6:08 pm INDICATION: Signs/Symptoms:TRAUMA. COMPARISON: None. ACCESSION NUMBER(S): [id number] ORDERING CLINICIAN: FLAVIO AQUINO FINDINGS: Three radiographs [...] Conner Burk 06/10/2023 6:36 PM Dictation workstation: [id number] [facility] XR Foot - right 3 Viewson 1. Marked soft tissu e swelling from likely hematoma overlies the dorsum of the foot, along the metatarsals, without evidence of displaced fracture, traumatic malalignment, or radiopaque foreign body. 2. Degenerative changes of the right foot with joint space narrowing and osteophytosis. MACRO: None Signed by: Conner Burk 06/10/2023 6:36 PM Dictation workstation: [id number] MMODAL Interpreted By: Conner Burk, STUDY: XR FOOT RIGHT 3+ VIEWS; ; 06/10/2023 6:08 pm INDICATION: Signs/Symptoms:TRAUMA. COMPARISON: None. ACCESSION NUMBER(S): [id number] ORDERING CLINICIAN: FLAVIO AQUINO FINDINGS: Three radiographs [...] pm INDICATION: Signs/Symptoms:TRAUMA. COMPARISON: None. ACCESSION NUMBER(S): [id number] ORDERING CLINICIAN: FLAVIO AQUINO FINDINGS: Three radiographs [...] Conner Burk 06/10/2023 6:36 PM Dictation workstation: [id number] [facility] Work Phone: Radiology Study observation (narrative) [facility] Work Phone: XR Foot - right 3 ViewsOrder ed By: Conner Burk on 06-10-2023 [facility] Work Phone: ALKALINE PHOSPHATASE, ISOENZ YMESon 05-21-2023 ALP [Catalytic activity/Vol] 158 U/L High 40-120 [facility] Comment on above: Performed By: #### 1 9123-9 #### OMERO KNIGHT ([id number]) [facility] ([facility]) [address] [place] [address] ALP Bone [Catalytic activity/Vol] 60 U/L High 0-55 [facility] Comment on above: Performed By: #### 1 9123-9 #### OMERO KNIGHT ([id number]) [facility] ([facility]) [address] [place] [address] ALP Liver [Catalytic activity/Vol] 98 U/L High 0-94 [facility] Comment on above: Result Comment: INTE RPRETIVE INFORMATION: Alk-Phosphatase Liver Calc Bone Specific Alkaline Phosphatase (2546958) and 5'-nucleotidase (7436897) may be useful in identifying disorders of bone and liver, respectively. Performed By: #### 1 9123-9 #### OMERO KNIGHT (84956) [facility] ([facility]) [address] [place] [address] ALP Other [Catalytic activity/Vol] 0 U/L Normal [facility] Comment on above: Result Comment: Perf ormed By: [employer] [address] [place] [address]95[address] Belting Inspector: Shayan Licona MD, PhD CLIA Number: [id number] Performed By: #### 1 9123-9 #### OMERO KNIGHT ([id number]) [facility] ([facility]) [address] [place] [address] CBC panel Auto (Bld)on 05-21 Erythrocyte distribution width (RBC) [Ratio] 20.9 % High 11.5-14.5 [facility] Comment on above: Performed By: #### 5 8410-2 #### OMERO KNIGHT (49857) [facility] ([facility]) [address] [place] [address] Hematocrit (Bld) [Volume fraction] 36.6 % Normal 36.0-46.0 [facility] Comment on above: Performed By: #### 5 8410-2 #### OMERO KNIGHT ([id number]) [facility] ([facility]) [address] [place] [address] 83355 Hemoglobin (Bld) [Mass/Vol] 11.0 g/dL Low 12.0-16.0 [facility] Comment on above: Performed By: #### 5 8410-2 #### OMERO KNIGHT (00752) [facility] ([facility]) [address] [place] [address] 26755 MCH (RBC) [Entitic mass] 24.9 pg Low 26.0-34.0 [facility] Comment on above: Performed By: #### 5 8410-2 #### OMEOR KNIGHT ([id number]) [facility] ([facility]) [address] [place] [address] 38629 MCHC (RBC) [Mass/Vol] 30.1 g/dL Low 32.0-36.0 [facility] Comment on above: Performed By: #### 5 8410-2 #### OMERO KNIGHT ([id number]) [facility] ([facility]) [address] [place] [address] 66185 MCV (RBC) [Entitic vol] 83 fL Normal 80-100 [facility] Comment on above: Performed By: #### 5 8410-2 #### OMERO KNIGHT ([id number]) [facility] ([facility]) [address] [place] [address] 86957 Nucleated RBC/100 WBC (Bld) [Ratio] 0.0 /100 WBCs Normal 0.0-0.0 [facility] Comment on above: Performed By: #### 5 8410-2 #### OMERO KNIGHT (73845) [facility] ([facility]) [address] [place] [address] 76102 Platelets (Bld) [#/Vol] 261 x10*3/uL Normal 150-450 [facility] Comment on above: Performed By: #### 5 8410-2 #### OMERO KNIGHT (97086) [facility] ([facility]) [address] [place] [address] 82352 RBC (Bld) [#/Vol] 4.41 x10*6/uL Normal 4.00-5.20 [facility] Comment on above: Performed By: #### 5 8410-2 #### OMERO KNIGHT ([id number]) [facility] ([facility]) [address] [place] [address] 82733 WBC (Bld) [#/Vol] 10.2 x10*3/uL Normal 4.4-11.3 [facility] Comment on above: Performed By: #### 5 8410-2 #### OMERO KNIGHT (97914) [facility] ([facility]) [facility] [place] [address] Calcidiolon 05-21-2023 25-hydroxyvitamin D3 [Mass/Vol] 21 ng/mL Low 30-100 [facility] Comment on above: Order Comment: Defic iency: < 20 ng/mlInsufficiency: 20-29 ng/mlSufficiency: 30-100 ng/mlThis assay accurately quantifies the sum of Vitamin D3, 25-Hydroxy and Vitamin D2,25-Hydroxy. Performed By: #### 1 9123-9 #### OMERO KNIGHT ([id number]) [facility] ([facility]) [address] [place] [address] Comprehensive metabolic 2000 panelon 05-21-2023 Albumin BCP dye [Mass/Vol] 3.6 g/dL Normal 3.4-5.0 [facility] Comment on above: Performed By: #### 2 4323-8 #### OMERO KNIGHT (77914) [facility] ([facility]) [address] [place] [address] ALP [Catalytic activity/Vol] 140 U/L High 33-136 [facility] Comment on above: Performed By: #### 2 4323-8 #### OMERO KNIGHT (71584) [facility] ([facility]) [address] [place] [address] ALT With P-5'-P [Catalytic activity/Vol] 8 U/L Normal 7-45 [facility] Comment on above: Result Comment: Madhavi ents treated with Sulfasalazine may generate falsely decreased results for ALT. Performed By: #### 2 4323-8 #### OMERO KNIGHT (46215) [facility] ([facility]) [address] [place] [address] 04687 Anion gap [Moles/Vol] 12 mmol/L Normal 10-20 [facility] Comment on above: Performed By: #### 2 4323-8 #### OMERO KNIGHT ([id number]) [facility] ([facility]) [address] [place] [address] AST With P-5'-P [Catalytic activity/Vol] 16 U/L Normal 9-39 [facility] Comment on above: Performed By: #### 2 4323-8 #### OMERO KNIGHT ([id number]) [facility] ([facility]) [address] [place] [address] 35772 Bilirubin [Mass/Vol] 0.3 mg/dL Normal 0.0-1.2 [facility] Comment on above: Performed By: #### 2 4323-8 #### OMERO KNIGHT (44459) [facility] ([facility]) [address] [place] [address] 28248 Calcium [Mass/Vol] 9.2 mg/dL Normal 8.6-10.3 [facility] Comment on above: Performed By: #### 2 4323-8 #### OMERO KNIGHT (69015) [facility] ([facility]) [address] [place] [address] 41174 Chloride [Moles/Vol] 100 mmol/L Normal 98-107 [facility] Comment on above: Performed By: #### 2 4323-8 #### OMERO KNIGHT ([id number]) [facility] ([facility]) [address] [place] [address] 16750 CO2 [Moles/Vol] 30 mmol/L Normal 21-32 [facility] Comment on above: Performed By: #### 2 4323-8 #### OMERO KNIGHT ([id number]) [facility] ([facility]) [address] [place] [address] 17885 Creatinine [Mass/Vol] 1.00 mg/dL Normal 0.50-1.05 [facility] Comment on above: Performed By: #### 2 4323-8 #### OMERO KNIGHT ([id number]) [facility] ([facility]) [address] [place] [address] 10617 Glomerular filtration rate/1.73 sq M.predicted 59 mL/min/1.73m*2 Low >60 [facility] Comment on above: Result Comment: Calc ulations of estimated GFR are performed using the 2020 CKD-EPI Study Refit equation without the race variable for the IDMS-Traceable creatinine methods. https://jasn.asnjournals.org/content//ASN.93087 28605 Performed By: #### 2 4323-8 #### OMERO KNIGHT ([id number]) [facility] ([facility]) [address] [place] [address] 99937 Glucose [Mass/Vol] 119 mg/dL High 74-99 [facility] Comment on above: Performed By: #### 2 4323-8 #### OMERO KNIGHT ([id number]) [facility] ([facility]) [address] [place] [address] 59686 Potassium [Moles/Vol] 4.4 mmol/L Normal 3.5-5.3 [facility] Comment on above: Performed By: #### 2 4323-8 #### OMERO KNIGHT ([id number]) [facility] ([facility]) [address] [place] [address] 47466 Protein [Mass/Vol] 6.4 g/dL Normal 6.4-8.2 [facility] Comment on above: Performed By: #### 2 4323-8 #### OMERO KNIGHT ([id number]) [facility] ([facility]) [address] [place] [address] 53882 Sodium [Moles/Vol] 138 mmol/L Normal 136-145 [facility] Comment on above: Performed By: #### 2 4323-8 #### OMERO KNIGHT ([id number]) [facility] ([facility]) [address] [place] [address] 70472 Urea nitrogen [Mass/Vol] 15 mg/dL Normal 6-23 [facility] Comment on above: Performed By: #### 2 4323-8 #### OMERO KNIGHT ([id number]) [facility] ([facility]) [address] [place] [address] 73714 Ferritinon 05-21-2023 Ferritin [Mass/Vol] 34 ng/mL Normal 8-150 [facility] Comment on above: Performed By: #### 2 276-4 #### OMERO KNIGHT ([id number]) [facility] ([facility]) [address] [place] [address] 13288 Iron and Iron binding capaci ty panelon 05-21-2023 Iron [Mass/Vol] 97 ug/dL Normal 35-150 [facility] Comment on above: Performed By: #### 5 0190-8 #### OMERO KNIGHT ([id number]) [facility] ([facility]) [address] [place] [address] 64336 Iron binding capacity [Mass/Vol] 346 ug/dL Normal 240-445 [facility] Comment on above: Performed By: #### 5 0190-8 #### OMERO KNIGHT ([id number]) [facility] ([facility]) [address] [place] [address] 89073 Iron binding capacity.unsaturated [Mass/Vol] 249 ug/dL Normal 110-370 [facility] Comment on above: Performed By: #### 5 0190-8 #### OMERO KNIGHT ([id number]) [facility] ([facility]) [address] [place], [place] [address] Iron saturation [Mass fraction] 28 % Normal 25-45 [facility] Comment on above: Performed By: #### 0190-8 #### OMERO KNIGHT ([id number]) [facility] ([facility]) [address] [place], [place] [address] CBC panel Auto (Bld)on 03-06 Erythrocyte distribution width (RBC) [Ratio] 15.1 % High 11.5-14.5 [facility] Comment on above: Performed By: #### 5 8410-2 #### OMERO KNIGHT ([id number]) [facility] ([facility]) [address] [place] [address] 75958 Hematocrit (Bld) [Volume fraction] 32.6 % Low 36.0-46.0 [facility] Comment on above: Performed By: #### 5 8410-2 #### OMERO KNIGHT ([id number]) [facility] ([facility]) [address] [place] [address] 62252 Hemoglobin (Bld) [Mass/Vol] 9.3 g/dL Low 12.0-16.0 [facility] Comment on above: Performed By: #### 5 8410-2 #### OMERO KNIGHT ([id number]) [facility] ([facility]) [address] [place] [address] 07319 MCH (RBC) [Entitic mass] 22.0 pg Low 26.0-34.0 [facility] Comment on above: Performed By: #### 5 8410-2 #### OMERO KNIGHT ([id number]) [facility] ([facility]) [address] [place] [address] 12515 MCHC (RBC) [Mass/Vol] 28.5 g/dL Low 32.0-36.0 [facility] Comment on above: Performed By: #### 5 8410-2 #### OMERO KNIGHT ([id number]) [facility] ([facility]) [address] [place] [address] 15552 MCV (RBC) [Entitic vol] 77 fL Low 80-100 [facility] Comment on above: Performed By: #### 5 8410-2 #### OMERO KNIGHT ([id number]) [facility] ([facility]) [address] [place] [address] 37467 Nucleated RBC/100 WBC (Bld) [Ratio] 0.0 /100 WBCs Normal 0.0-0.0 [facility] Comment on above: Performed By: #### 5 8410-2 #### OMERO KNIGHT ([id number]) [facility] ([facility]) [address] [place] [address] 54912 Platelets (Bld) [#/Vol] 310 x10*3/uL Normal 150-450 [facility] Comment on above: Performed By: #### 5 8410-2 #### OMERO KNIGHT ([id number]) [facility] ([facility]) [address] [place] [address] 77915 RBC (Bld) [#/Vol] 4.22 x10*6/uL Normal 4.00-5.20 [facility] Comment on above: Performed By: #### 5 8410-2 #### OMERO KNIGHT ([id number]) [facility] ([facility]) [address] [place] [address] 35552 WBC (Bld) [#/Vol] 12.2 x10*3/uL High 4.4-11.3 [facility] Comment on above: Performed By: #### 5 8410-2 #### OMERO KNIGHT ([id number]) [facility] ([facility]) [address] [place] [address] Cobalaminson 03-06-2023 Cobalamin (Vitamin B12) [Mass/Vol] 352 pg/mL Normal 211-911 [facility] Comment on above: Performed By: #### 2 132-9 #### OMERO KNIGHT ([id number]) [facility] ([facility]) [address] [place] [address] Comprehensive metabolic 2000 panelon 03-06-2023 Albumin BCP dye [Mass/Vol] 3.8 g/dL Normal 3.4-5.0 [facility] Comment on above: Performed By: #### 2 4323-8 #### MOERO KNIGHT ([id number]) [facility] ([facility]) [address] [place] [address] 32448 ALP [Catalytic activity/Vol] 141 U/L High 33-136 [facility] Comment on above: Performed By: #### 2 4323-8 #### OMERO KNIGHT ([id number]) [facility] ([facility]) [address] [place] [address] 24223 ALT With P-5'-P [Catalytic activity/Vol] 9 U/L Normal 7-45 [facility] Comment on above: Result Comment: Madhavi ents treated with Sulfasalazine may generate falsely decreased results for ALT. Performed By: #### 2 4323-8 #### OMERO KNIGHT ([id number]) [facility] ([facility]) [address] [place] [address] 74804 Anion gap [Moles/Vol] 12 mmol/L Normal 10-20 [facility] Comment on above: Performed By: #### 2 4323-8 #### OMERO KNIGHT ([id number]) [facility] ([facility]) [address] [place] [address] [place] [address] AST With P-5'-P [Catalytic activity/Vol] 16 U/L Normal 9-39 [facility] Comment on above: Performed By: #### 2 4323-8 #### OMERO KNIGHT ([id number]) [facility] ([facility]) [address] [place] [address] 72619 Bilirubin [Mass/Vol] 0.3 mg/dL Normal 0.0-1.2 [facility] Comment on above: Performed By: #### 2 4322-8 #### OMERO KNIGHT ([id number]) [facility] ([facility]) [address] [place] [address] 11867 Calcium [Mass/Vol] 9.1 mg/dL Normal 8.6-10.3 [facility] Comment on above: Performed By: #### 2 4322-8 #### OMERO KNIGHT ([id number]) [facility] ([facility]) [address] [place] [address] 85573 Chloride [Moles/Vol] 103 mmol/L Normal 98-107 [facility] Comment on above: Performed By: #### 2 432-8 #### OMERO KNIGHT ([id number]) [facility] ([facility]) [address] [place] [address] 59507 CO2 [Moles/Vol] 28 mmol/L Normal 21-32 [facility] Comment on above: Performed By: #### 2 3-8 #### OMERO KNIGHT ([id number]) [facility] ([facility]) [address] [place] [address] 12712 Creatinine [Mass/Vol] 0.83 mg/dL Normal 0.50-1.05 [facility] Comment on above: Performed By: #### 2 4322-8 #### OMERO KNIGHT ([id number]) [facility] ([facility]) [address] [place] [address] 86926 GFR/1.73 sq M.predicted MDRD (S/P/Bld) [Vol rate/Area] 74 mL/min/1.73m*2 Normal >60 [facility] Comment on above: Result Comment: Calc ulations of estimated GFR are performed using the 2020 CKD-EPI Study Refit equation without the race variable for the IDMS-Traceable creatinine methods. https://jasn.asnjournals.org/content/early/ASN.55743 98179 Performed By: #### 2 4323-8 #### OMERO KNIGHT ([id number]) [facility] ([facility]) [facility] [place] [address] Glucose [Mass/Vol] 143 mg/dL High 74-99 [facility] Comment on above: Performed By: #### 2 4323-8 #### OMERO KNIGHT ([id number]) [facility] ([facility]) [address] [place] [address] 08746 Potassium [Moles/Vol] 4.3 mmol/L Normal 3.5-5.3 [facility] Comment on above: Performed By: #### 2 4323-8 #### OMERO KNIGHT (97946) [facility] ([facility]) [address] [place] [address] 72693 Protein [Mass/Vol] 6.9 g/dL Normal 6.4-8.2 [facility] Comment on above: Performed By: #### 2 4323-8 #### OMERO KNIGHT ([id number]) [facility] ([facility]) [address] [place] [address] 95778 Sodium [Moles/Vol] 139 mmol/L Normal 136-145 [facility] Comment on above: Performed By: #### 2 4323-8 #### OMERO KNIGHT ([id number]) [facility] ([facility]) [address] [place] [address] 65086 Urea nitrogen [Mass/Vol] 22 mg/dL Normal 6-23 [facility] Comment on above: Performed By: #### 2 4323-8 #### OMERO KNIGHT ([id number]) [facility] ([facility]) [facility] [place] [address] HbA1c (Bld) [Mass fraction]o n 03-06-2023 Average glucose Estimated from glycated hemoglobin (Bld) [Mass/Vol] 160 mg/dL Normal Not Established [facility] Comment on above: Order Comment: Diagn osis of Diabetes-Adults Non-Diabetic: < or = 5.6% Increased risk for developing diabetes: 5.7-6.4% Diagnostic of diabetes: > or = 6.5% Monitoring of Diabetes Age (y)....................... Therapeutic Goal (%) Adults: >18.........................<7.0 Pediatrics: 13-18...................<7.5 Pediatrics: 7-12....................<8.0 Pediatrics: 0-6..................... 7.5-8.5 [employer] [employer]. Diabetes Care 33(S1)Apr 2009 Performed By: #### 4 548-4 #### JAMIL EUGENE ([id number]) [facility] ([facility]) [address] [place] [address] Hemoglobin A1c/Hemoglobin.to zac 03-06-2023 HbA1c (Bld) [Mass fraction] 7.2 % High see below [facility] Comment on above: Order Comment: Diagn osis of Diabetes-Adults Non-Diabetic: < or = 5.6% Increased risk for developing diabetes: 5.7-6.4% Diagnostic of diabetes: > or = 6.5% Monitoring of Diabetes Age (y)....................... Therapeutic Goal (%) Adults: >18.........................<7.0 Pediatrics: 13-18...................<7.5 Pediatrics: 7-12....................<8.0 Pediatrics: 0-6..................... 7.5-8.5 [place] [employer]. Diabetes Care 33(S1), Apr 2009 Performed By: #### 4 548-4 #### OMERO KNIGHT ([id number]) [facility] ([facility]) [facility] [place] [address] Lipid 1996 panelon 3 Cholesterol [Mass/Vol] 125 mg/dL Normal 0-199 Un [facility] Comment on above: Result Comment: [...] By: #### 2 4331-1 #### OMERO KNIGHT ([id number]) [facility] ([facility]) [address] [place] [address] 49642 Cholesterol in HDL [Mass/Vol] 55.0 mg/dL Normal [facility] Comment on above: Result Comment: Age Very Low Low Normal High 0-19 Y < 35 < 40 40-45 ---- 20-24 Y ---- < 40 >45 ---- >24 Y ---- < 40 40-60 >60 Performed By: #### 2 4331-1 #### OMERO KNIGHT ([id number]) [facility] ([facility]) [facility] [place] [address] Cholesterol in LDL [Mass/Vol] 48 mg/dL Normal <=99 [facility] Comment on above: Result Comment: Near Borderline AGE Desirable Optimal High High Very High 0-19 Y 0 - 109 --- 110-129 >/= 130 ---- 20-24 Y 0 - 119 --- 120-159 >/= 160 ---- >24 Y 0 - 99 100-129 130-159 160-189 >/=190 Performed By: #### 2 4331-1 #### OMERO KNIGHT ([id number]) [facility] ([facility]) [facility] [place] [address] Cholesterol in VLDL [Mass/Vol] 22 mg/dL Normal 0-40 [facility] Comment on above: Performed By: #### 2 4331-1 #### OMERO KNIGHT ([id number]) [facility] ([facility]) [address] [place] [address] 07580 CHOLESTEROL/HDL RATIO 2.3 Normal [facility] Comment on above: Result Comment: Ref Values Desirable < 3.4 High Risk > 5.0 Performed By: #### 2 4331-1 #### OMERO KNIGHT ([id number]) [facility] ([facility]) [address] [place] [address] 49960 NON HDL CHOLESTEROL 70 mg/dL Normal 0-149 [facility] Comment on above: Result Comment: Age Desirable Borderline High High Very High 0-19 Y 0 - 119 120 - 144 >/= 145 >/= 160 20-24 Y 0 - 149 150 - 189 >/= 190 ---- >24 Y 30 mg/dL above LDL Cholesterol goal Performed By: #### 2 4331-1 #### OMERO KNIGHT ([id number]) [facility] ([facility]) [address] [place] [address] 67494 Triglyceride [Mass/Vol] 111 mg/dL Normal 0-149 [facility] Comment on above: Result Comment: Age Desirable [...] By: #### 2 4331-1 #### OMERO KNIGHT ([id number]) [facility] ([facility]) [address] [place] [address] Magnesiumon 03-06-2023 Magnesium [Mass/Vol] 1.30 mg/dL Low 1.60-2.40 [facility] Comment on above: Performed By: #### 1 9123-9 #### OMERO KNIGHT ([id number]) [facility] ([facility]) [address] [place] [address] CORONAVIRUS 2019 BY PCRon SARS-CoV-2 (COVID-19) RNA SEFERINO+probe Ql (Unsp spec) Not detected Normal Not Detected [facility] Comment on above: Result Comment: . This test has received FDA Emergency Use Authorization (EUA) and has been verified by [facility]. This test is only authorized for the duration of time that circumstances exist to justify the authorization of the emergency use of in vitro diagnostic tests for the detection of SARS-CoV-2 virus and/or diagnosis of COVID-19 infection under section 564(b)(1) of the Act, 21 U.S.C. 360bbb-3(b)(1), unless the authorization is terminated or revoked sooner. [facility] is certified under CLIA-88 as qualified to perform high complexity testing. Testing is performed in the [facility] laboratory located at [address] [place] [address]. SARS-CoV-2/Flu/RSV Multiplex Test: Fact sheet for providers: https://www.fda.gov/media/358844/download Fact sheet for patients: https://www.fda.gov/media/308388/download Performed By: #### C OV19 #### [place] [address] Lab Specimen Source Nasal, Nasopharyngeal Normal [facility] Comment on above: Performed By: #### C OV19 #### [place] [address] Covid 19 Resultson 06-09-202 3 SARS-CoV-2 (COVID-19) [...] also be contacted by the [facility] to see if any of your close [...] or Naproxen (Aleve) can also be used. Bgna-lup-hwewdvd cough and cold medicines can be used according to the instructions on the package. Some wcxz-xhm-kialaxy medicines also contain acetaminophen. Make sure you [...] water are not available, use alcohol-based hand diagnostics sales developer. Avoid touching your eyes, nose, and mouth [...] 24 rai (more content not included)... Normal [facility] Daily Progress Note-General Internal Medicineon 09-15-2022 Daily Progress Note-General Internal Medicine Service: General Internal Medicine Subjective Data: DARYN GUILLERMO is a 76 year old Female who is Hospital Day # 8. Additional Information: Patient seen and examined at bedside. Patient doing well. No complaints today. Getting ready to go to rehab today. Objective Data: Objective Information: T PRBPMAPSpO2 [id number]/5994% Date/Time09/15 8: 8: 8: 8: 8:00 Range(36.5C - 36.8C ) (78 - 87 ) (16 - 16 ) (94 - 141 )/ (59 - 82 ) (94% - 97% ) Pain reported at 09/15 8:45: 0 = None ---- Intake and Output ----- Mn/Dy/Year TimeIntakeOutputNet Sep 14, 2022 10:00 [id number] Sep 14, 2022 2:00 [id number] The Intake and Output Totals for the last 24 hours are: IntakeOutputNet [id number] Physical Exam by System: Constitutional: Well developed, [...] Spontaneous/Phasic Peroneal Yes None PTV Yes None [id number] Don Rico MD Final [facility] Venous Duplex Ultrasound for DVT [Sep 11 2022 7:14PM] Conclusion: CONCLUSIONS: 1. Left ventricular systolic function is normal with a 55% estimated ejection fraction. 2. The left atrium is severely dilated. 3. Findings appear consistent with mild aortic stenosis. QUANTITATIVE DATA SUMMARY: 2D MEASUREMENTS: Normal Ranges: Ao Root d: 2.80 cm (2.0-3.7cm) LAs: 4.30 cm (2.7-4 (more content not included)... Normal [facility] GLUCOSE-POCTon 09-15-2022 Glucose [Mass/Vol] 141 mg/dL High 74 - [address] [facility] Comment on above: Performed By: #### B MP #### [place] [address] Glucose [Mass/Vol] 165 mg/dL High 74 - [address] [facility] Comment on above: Performed By: #### G ROLLY #### [address] [address] BASIC METABOLIC PANELon 06-0 Anion gap [Moles/Vol] 10 mmol/L Normal 10 - 20 [facility] Comment on above: Performed By: #### B MP ####[address] [address] Calcium [Mass/Vol] 8.4 mg/dL Low 8.6 - 10.[address] [facility] Comment on above: Performed By: #### B MP ####[address] [address] Chloride [Moles/Vol] 96 mmol/L Low 98 - 107 [facility] Comment on above: Performed By: #### B MP ####[address] [address] Creatinine [Mass/Vol] 0.96 mg/dL Normal 0.50 - 1.05 [facility] Comment on above: Performed By: #### B MP ####[address] [address] GFR/1.73 sq M.predicted among non-blacks MDRD (S/P/Bld) [Vol rate/Area] 62 mL/min/{1.73_m2} Normal >90 [facility] Comment on above: Result Comment: CALC ULATIONS OF ESTIMATED GFR ARE PERFORMED USING THE 2020 CKD-EPI STUDY REFIT EQUATION WITHOUT THE RACE VARIABLE FOR THE IDMS-TRACEABLE CREATININE METHODS. https://jasn.asnjournals.org/content/early//ASN.61704 50966 Performed By: #### B MP ####[address] [address] Glucose [Mass/Vol] 153 mg/dL High 74 - [address] [facility] Comment on above: Performed By: #### B MP ####[address] [address] HCO3 (Bld) [Moles/Vol] 31 mmol/L Normal 21 - 32 [facility] Comment on above: Performed By: #### B MP ####[address] [address] Potassium [Moles/Vol] 3.6 mmol/L Normal 3.5 - 5.3 [facility] Comment on above: Performed By: #### B MP ####[address] [address] Sodium [Moles/Vol] 133 mmol/L Low 136 - [address] [facility] Comment on above: Performed By: #### B MP ####[address] [address] Urea nitrogen [Mass/Vol] 13 mg/dL Normal 6 - 23 [facility] Comment on above: Performed By: #### B MP ####[place] [id number] CBCon 09-14-2022 Erythrocyte distribution width (RBC) [Ratio] 17.1 % High 11.5 - 14.5 [facility] Comment on above: Performed By: #### B MP #### [address] [address] Hematocrit (Bld) [Volume fraction] 28.4 % Low 36.0 - 46.0 [facility] Comment on above: Performed By: #### B MP #### [address] [address] Hemoglobin (Bld) [Mass/Vol] 8.1 g/dL Low 12.0 - 16.0 [facility] Comment on above: Performed By: #### B MP #### [address] [address] MCHC (RBC) [Mass/Vol] 28.5 g/dL Low 32.0 - 36.0 [facility] Comment on above: Performed By: #### B MP #### [address] [address] MCV (RBC) [Entitic vol] 71 fL Low 80 - 100 [facility] Comment on above: Performed By: #### B MP #### [place] [id number] Platelets (Bld) [#/Vol] 310 10*3/uL Normal 150 - 450 [facility] Comment on above: Performed By: #### B MP #### [address] [address] RBC 4.01 x10E12/L Normal 4.00 - 5.20 [facility] Comment on above: Performed By: #### B MP #### [address] [address] WBC (Bld) [#/Vol] 11.6 10*3/uL High 4.4 - 11.3 [facility] Comment on above: Performed By: #### B MP #### [address] [address] Consult - Psychiatryon 09-14 Consult - Psychiatry [...] Tona. Also, patient's Shad is now at [facility] for medical admission. Patient describes how she stopped walking 3 years ago when she shut down emotionally after Jojo and Tona left. States she can stand, but due to balance issues, is fearful of falling. Describes system wherein Srinivas and Shad assist her with wheelchair, bathing, toileting, etc. 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 Social History: Lives in [...] Suicidal Ideas Objective: Objective Information: T PRBPMAPSpO2 [id number]/6596% Date/Time09/14 7:536/8 7:538 7:538 7:5309/14 7:53 Range(36.3C [...] Times a (more content not included)... Normal [facility] Discharge [id number] Discharge Profile2 Discharge Orders: Anticipated Discharge Date: Anticipated Discharge [id number] Anticipated Discharge Time14:48 Problem List: Additional Dx: [...] shower. Diet: Dietlow cholesterol, low fat Fluid [id number] to 2000 ml Hospital Course (Home Care/Gold [...] individual's condition. Attending ProviderAngelique Clarke Attending Provider [id number] Therapy Orders: Occupational Therapy OrdersEval and Treat ([facility]) Physical Therapy OrdersEval and Treat ([facility]) Speech Therapy OrdersEval and Treat ([facility]) Provider Follow Up: Physician To Follow at Skilled/RehabAttending Physician at Skilled/Rehab Provider FINAL REVIEW of Orders: Final Review: Final Review of Medication Reconciliation and Orders Completedby Physician Reviewing ProviderAngelique Clarke MD at 15-Sep-2022 12:31:20 Appointments: Follow-Up Appointment 01: Physician/Dept/ServicePr [facility] Care Physician/Facility Physician Reason for Referralpost hospital stay Call to Schedule in1 week Follow-Up Appointment 02: Physician/Dept/ServiceDr Rupal Pickard Reason for ReferralPsychotherapy/Ps ychiatry Call to Schedule inAs needed. O (more content not included)... Normal [facility] GLUCOSE-POCTon 09-14-2022 Glucose [Mass/Vol] 172 mg/dL High 74 - [address] [facility] Comment on above: Performed By: #### C OV19 #### [address] [address] Glucose [Mass/Vol] 204 mg/dL High 74 - [address] [facility] Comment on above: Performed By: #### C OV19 #### [address] [address] Glucose [Mass/Vol] 166 mg/dL High 74 - [address] [facility] Comment on above: Performed By: #### L ACT #### [address] [address] Glucose [Mass/Vol] 144 mg/dL High 74 - [address] [facility] Comment on above: Performed By: #### G ROLLY #### [address] [address] Nutrition Therapy-Assessment - Physician consult for assessmon 09-14-2022 Nutrition Therapy-Assessment - Physician consult for assessm Assessment Subjective/Objective: Note Type: Assessment Physician consult for assessment and recommendations Note Authored by: Registered Dietitian Lay Out Drafter Pager Number: Dochalo Ronn Note: The patient [...] None ---- Intake and Output ----- Mn/Dy/Year TimeIntakeOutalta [facility] hospitalNet Sep 14, 2022 6:00 [id number] Sep 13, 2022 10:00 [id number] Sep 13, 2022 2:00 [id number] The Intake and Output Totals for the last 24 hours are: IntakeOutputNet [id number] Height/Weight: Height in cm: 167.5 centimeter(s) Weight [...] 13-18 <7.5 7-12 <8.0 0- 6 7.5-8.5 [employer]. Diabetes Care 33(S1), Apr 2009. 09-Sep-2022 04:54, Hemoglobin A1C, Level Hemoglobin A1C, Level7.6 Diagnosis of Diabetes-Adults Non-Diabetic: < or = 5.6% Increased risk for developing diabetes: 5.7-6.4% Diagnostic of diabetes: > or = 6.5% . Monitoring of Diabetes Age (y) Therapeutic Goal (%) Adults: >18 <7.0 Pediatrics: 13-18 <7.5 7-12 <8.0 0- 6 7.5-8.5 [employer]. Diabetes Care 33(S1), Apr 2009. [...] ml/day 90gram Carb/meal, 60gram Carb evening snack (2235-1681 calories), 10-Sep-2022 (more content not included)... [facility] Order Reconciliationon 09-14 Order Reconciliation Page [...] 3.375 gram/Iso-osmoti (more content not included)... Normal [facility] Rehab Enbj-nl-mbwdcwjeant Rehab Usda-rt-orxiiggly Rehab: Info: Disciplinephysical therapy coordinator Mode of Treatmentco-treatment; physical therapy; occupational therapy Time IN12:56 Time OUT13:30 Total Treatment [id number] Patient in ... at end of sessionbed, [...] to supine Supine to Sit to Supine Brock[place] (Bed Mobility)moderate assist (50% patient effort); 2 [...] upon arrival, agreeable to therapy. Co-treated with ROUTE DELIVERY SERVICE DRIVER this date. Mod assist x1-2 with supine [...] transfers with greater ease/safety. Electronic Signatures: Laurent MckeonDISTRICT FIRE MANAGEMENT OFFICER) (Signed 14-Sep-2022 13:50) Authored: Info, Vision/Cognition, Mobility/Tone, Motor, Sensory, Outcomes Tools, Short Term Goals, Outcome Summary James Mendez (PT) (Signed 19-Sep-2022 08:46) Co-Signer: Info, Vision/Cognition, Mobility/Tone, Motor, Sensory, Outcomes Tools, Short Term Goals, Outcome Summary Last Updated: 19-Sep-2022 08:46 by James Mendez (PT) [facility] Rehab Huea-nj-nmwwspwqt Rehab: Info: Disciplineoccupational therapy coordinator Mode of Treatmentco-treatment; occupational therapy; physical therapy Time IN12:54 Time OUT13:32 Total Treatment [id number] Total Minutes CommentFull 38 min co-tx with [...] to sit; sit to supine Roll Left Brock[place] (Bed Mobility)independent Liveic-qr-Yav Brock[place] (Bed Mobility)independent Ste-pf-Kfwyij [place] (Bed Mobility)minimum assist (75% patient effort); Min A to lift leg onto bed Assistive Device (Bed Mobility)bed rails Transfer Assessment/Interventions sit to stand transfer; stand to sit transfer Sit-Stand [place] (Transfers)Sit to stand x 3 trials standing 10, 15 then 20 seconds. Mod>max A x 2 with/ verbal cues to stand tall. Each sit to stand improving; maximum assist (25% patient effort); 2 person assist Sit-Stand Assistive Device (Transfers)gait belt; walker, front-wheeled Stand-Sit [place] (Transfers)moderate assist (50% patient effort) Stand-Sit Assistive Device (Transfers)gait belt; walker, front-wheeled Impairments Impacting Function (Mobility)balance; strength; range of motion ADL: BADL Assessment/Interventionl ower body dressing Brocket Level (Lower Body Dressing)don; socks; modified independence [...] teethnone Eating Mealsnone AM-PAC (OT) Total Score17 Configuration Management Manager Goals: Transfer: Established Transfer: Transfer Type Goaltoilet Transfer: Brocket Level Goalminimum assist (75% patients effort) Transfer: [...] Lower Body Dressing: Established Lower Body Dressing: Brocket Level Goalindependent Lower Body Dressing: Time Frame for Goal2 wks Lower Body Dressing: Goal Outcomegoal ongoing; Patient educated with sock aide this , able to complete with 1x demo Toileting: Established Toileting: Brock[place] Level Goalminimum assist (75% patients effort) Toileting: Time Frame for Goal2 wks Toileting: Goal Outcomegoal ongoing Miscellaneous: Established [id number] Miscellaneous: Goal DetailsPt will demonstrate dynamic reaching [...] Info, Vision/Cogni (more content not included)... Normal [facility] BASIC METABOLIC PANELon 06-0 Anion gap [Moles/Vol] 12 mmol/L Normal 10 - 20 [facility] Comment on above: Performed By: #### G ROLLY #### [address] [address] Calcium [Mass/Vol] 8.5 mg/dL Low 8.6 - 10.[address] [facility] Comment on above: Performed By: #### G ROLLY #### [address] [address] Chloride [Moles/Vol] 96 mmol/L Low 98 - 107 [facility] Comment on above: Performed By: #### G ROLLY #### [address] [address] Creatinine [Mass/Vol] 0.88 mg/dL Normal 0.50 - 1.05 [facility] Comment on above: Performed By: #### G ROLLY #### [address] [address] GFR/1.73 sq M.predicted among non-blacks MDRD (S/P/Bld) [Vol rate/Area] 69 mL/min/{1.73_m2} Normal >90 [facility] Comment on above: Result Comment: CALC ULATIONS OF ESTIMATED GFR ARE PERFORMED USING THE 2020 CKD-EPI STUDY REFIT EQUATION WITHOUT THE RACE VARIABLE FOR THE IDMS-TRACEABLE CREATININE METHODS. https://jasn.asnjournals.org/content//ASN.61568 74329 Performed By: #### G ROLLY #### [address] [address] Glucose [Mass/Vol] 146 mg/dL High 74 - [address] [facility] Comment on above: Performed By: #### G ROLLY #### [address] [address] HCO3 (Bld) [Moles/Vol] 30 mmol/L Normal 21 - 32 [facility] Comment on above: Performed By: #### G ROLLY #### [address] [address] Potassium [Moles/Vol] 3.6 mmol/L Normal 3.5 - 5.3 [facility] Comment on above: Performed By: #### G ROLLY #### [address] [address] Sodium [Moles/Vol] 134 mmol/L Low 136 - [address] [facility] Comment on above: Performed By: #### G ROLLY #### [address] [address] Urea nitrogen [Mass/Vol] 13 mg/dL Normal 6 - 23 [facility] Comment on above: Performed By: #### G ROLLY #### [address] [address] CBC AND DIFFERENTIALon 09-13 % AUTOMATED IMMATURE GRAN 1.0 % High 0.0 - 0.9 [facility] Comment on above: Result Comment: Martina ture Granulocyte Count (IG) includes promyelocytes, myelocytes and metamyelocytes but does not include bands. Percent differential counts (%) should be interpreted in the context of the absolute cell counts (cells/L). Performed By: #### C BCDF #### [address] [address] Basophils (Bld) [#/Vol] 0.06 10*3/uL Normal 0.00 - 0.10 [facility] Comment on above: Performed By: #### C BCDF #### [address] [address] Basophils/100 WBC (Bld) 0.5 % Normal 0.0 - 2.0 [facility] Comment on above: Performed By: #### C BCDF #### [address] [address] Eosinophils (Bld) [#/Vol] 0.50 10*3/uL High 0.00 - 0.40 [facility] Comment on above: Performed By: #### C BCDF #### [address] [address] Eosinophils/100 WBC (Bld) 4.3 % Normal 0.0 - 6.0 [facility] Comment on above: Performed By: #### C BCDF #### [address] [address] Erythrocyte distribution width (RBC) [Ratio] 17.2 % High 11.5 - 14.5 [facility] Comment on above: Performed By: #### C BCDF #### [address] [address] Hematocrit (Bld) [Volume fraction] 28.3 % Low 36.0 - 46.0 [facility] Comment on above: Performed By: #### C BCDF #### [address] [address] Hemoglobin (Bld) [Mass/Vol] 8.1 g/dL Low 12.0 - 16.0 [facility] Comment on above: Performed By: #### C BCDF #### [address] [address] Lymphocytes (Bld) [#/Vol] 2.73 10*3/uL Normal 0.80 - 3.00 [facility] Comment on above: Performed By: #### C BCDF #### [address] [address] Lymphocytes/100 WBC (Bld) 23.3 % Normal 13.0 - 44.0 [facility] Comment on above: Performed By: #### C BCDF #### [address] [address] MCHC (RBC) [Mass/Vol] 28.6 g/dL Low 32.0 - 36.0 [facility] Comment on above: Performed By: #### C BCDF #### [address] [address] MCV (RBC) [Entitic vol] 70 fL Low 80 - 100 [facility] Comment on above: Performed By: #### C BCDF #### [address] [address] Monocytes (Bld) [#/Vol] 0.91 10*3/uL High 0.05 - 0.80 [facility] Comment on above: Performed By: #### C BCDF #### [address] [address] Monocytes/100 WBC (Bld) 7.8 % Normal 2.0 - 10.0 [facility] Comment on above: Performed By: #### C BCDF #### [address] [address] Neutrophils (Bld) [#/Vol] 7.41 10*3/uL High 1.60 - 5.50 [facility] Comment on above: Result Comment: Perc ent differential counts (%) should be interpreted in the context of the absolute cell counts (cells/L). Performed By: #### C BCDF #### [address] [address] Neutrophils/100 WBC (Bld) 63.1 % Normal 40.0 - 80.0 [facility] Comment on above: Performed By: #### C BCDF #### [address] [address] Platelets (Bld) [#/Vol] 290 10*3/uL Normal 150 - 450 [facility] Comment on above: Performed By: #### C BCDF #### [address] [address] RBC 4.02 x10E12/L Normal 4.00 - 5.20 [facility] Comment on above: Performed By: #### C BCDF #### [address] [address] WBC (Bld) [#/Vol] 11.7 10*3/uL High 4.4 - 11.3 [facility] Comment on above: Performed By: #### C BCDF #### [address] [address] Daily Progress Note-General Internal Medicineon 09-13-2022 Daily [...] progress. Objective Data: Objective Information: T PRBPMAPSpO2 Value36.7931139/6698% Date/Time09/13 10: 10: 10: 10: 10:00 Range(35.9C - 36.6C ) (59 - 74 ) (18 - 20 ) (95 - 113 )/ (59 - 74 ) (95% - 98% ) Pain reported at 09/13 9:50: 0 = None ---- Intake and Output ----- Mn/Dy/[facility]Int[facility]Out[facility] Sep 13, 2022 2:00 [id number] Sep 13, 2022 6:00 [id number] Sep 12, 2022 10:00 [id number] The Intake and Output Totals for the last 24 hours are: IntakeOutalta vista [facility] hospitalNet [id number] Physical Exam by System: Constitutional: Well developed, [...] Spontaneous/Phasic Peroneal Yes None PTV Yes None [id number] Don Rico MD Final [facility] Venous Duplex Ultrasound for DVT [Sep 11 2022 7:14PM] (more content not included)... Normal [facility] GLUCOSE-[facility] 09-13-2022 Glucose [Mass/Vol] 222 mg/dL High 74 - [address] [place] [address] Comment on above: Performed By: #### U ARFX #### [address] [address] Glucose [Mass/Vol] 160 mg/dL High - [address] [place] [address] Comment on above: Performed By: #### L ACT #### [address] [address] Glucose [Mass/Vol] 220 mg/dL High [address] [place] [address] Comment on above: Performed By: #### B MP #### [address] [address] Glucose [Mass/Vol] 142 mg/dL High 74 - [address] [place] [address] Comment on above: Performed By: #### L ACT #### [address] [address] OT Evaluation v2-occupationa l therapyon 09-13-2022 OT Evaluation v2-occupational therapy Rehab: Info: Mode of Treatmentoccupational therapy Time IN13:29 Time OUT13:54 Total Treatment [id number] Total Minutes Commentplus 1415 to 1437 with PT james Patient in ... at end of sessionchair Communicated with ... at end of sessionbedside nurse; day care assistant; physician; Discussion with Dr. Clarke, care transitions Vera and Princess about pt potential and mental health being pt largest limitation Patient Effortgood Symptoms Noted During/After Treatmentfatigue Patient Profile Reviewedyes Onset of Illness/Injury or Date of [id number] Reason for ReferralADL safety Referring PhysicianLogtiffanie Clarke [...] Ax2 with gait belt and FWW Sit-Stand Brock[place] (Transfers)minimum assist (75% patient effort); 2 person assist Sit-Stand Assistive Device (Transfers)gait belt; walker, front-wheeled Stand-Sit [place] (Transfers)minimum assist (75% patient effort); 2 person assist Stand-Sit Assistive Device (Transfers)gait belt; walker, front-wheeled Safety Issues Impacting Function (Mobility)anixety; insight into deficits/self awareness Impairments Impacting Function (Mobility)strength; endurance/activity tolerance; postural/trunk control ADL: BADL Assessment/Interventionl ower body dressing; toileting Position (Lower Body Dressing)unsupported sitting Comment (Lower Body Dressing)sitting in chair Brocket Level (Toileting)maximum assist (25% patient effort) Assistive [...] (OT Eval)5 times/wk Predicted Duration of Therapy Fccdkdxmllxy01 days Functional Limitations in Following Categoriesself-care; mobility/gait Outc (more content not included)... Normal [facility] Rehab Noteon 09-13-2022 Rehab Note Rehab: Info: Time IN11:31 Time OUT11:46 Total Treatment [id number] Total Minutes Commentadditional time [id number] by PT James Mendez for transfers and [...] floor. Unable to lift/clear right leg. Sit-Stand [place] (Transfers)minimum assist (75% patient effort); 1 person assist Sit-Stand Assistive Device (Transfers)gait belt; walker, front-wheeled Stand-Sit Brock[place] (Transfers)contact guard; 1 person assist; verbal cues [...] steps with railingtotal AM-PAC (PT) Total Score12 Configuration Management Manager Goals: Bed Mobility: Established Bed Mobility: Brocket Level Goalmodified independent; With bed flat and HOB not elevated; can use trapeze bar Bed Mobility: Time Frame for Goal1 wk Transfer: Established Transfer: Transfer Type Ttervep-cr-mzfci/chair-t o-bed; goi-yz-ndprv/stand-to-si t Transfer: Brocket Level Goalmoderate assist (50% patients effort) Transfer: Physical Assist Level Goal1-person assist Transfer: Assistive Device Goalrolling walker Transfer: Time Frame for Goal1 wk Balance: Date [id number] Balance: Goal DetailsPatient able to sit edge [...] and treatment directly supervised by Constance Gonzalez DISTRICT FIRE MANAGEMENT OFFICER 7458 patient's plan of care updated with updated goals to include transfers and stepping. Patient agreeable to trying to get be (more content not included)... Normal [facility] BASIC METABOLIC PANELon 06-0 Anion gap [Moles/Vol] 12 mmol/L Normal 10 - 20 [facility] Comment on above: Performed By: #### B MP #### [address] [address] Calcium [Mass/Vol] 8.4 mg/dL Low 8.6 - 10.[address] [facility] Comment on above: Performed By: #### B MP #### [address] [place] [address] Chloride [Moles/Vol] 97 mmol/L Low 98 - 107 [facility] Comment on above: Performed By: #### B MP #### [address] [address] Creatinine [Mass/Vol] 0.88 mg/dL Normal 0.50 - 1.05 [facility] Comment on above: Performed By: #### B MP #### [address] [address] GFR/1.73 sq M.predicted among non-blacks MDRD (S/P/Bld) [Vol rate/Area] 69 mL/min/{1.73_m2} Normal >90 [facility] Comment on above: Result Comment: CALC ULATIONS OF ESTIMATED GFR ARE PERFORMED USING THE 2020 CKD-EPI STUDY REFIT EQUATION WITHOUT THE RACE VARIABLE FOR THE IDMS-TRACEABLE CREATININE METHODS. https://jasn.asnjournals.org/content/early//ASN.21962 [address]20 Performed By: #### B MP #### [address] [address] Glucose [Mass/Vol] 152 mg/dL High 74 - [address] [facility] Comment on above: Performed By: #### B MP #### [address] [address] HCO3 (Bld) [Moles/Vol] 29 mmol/L Normal 21 - 32 [facility] Comment on above: Performed By: #### B MP #### [address] [address] Potassium [Moles/Vol] 3.5 mmol/L Normal 3.5 - 5.3 [facility] Comment on above: Performed By: #### B MP #### [address] [address] Sodium [Moles/Vol] 134 mmol/L Low 136 - [address] [facility] Comment on above: Performed By: #### B MP #### [address] [address] Urea nitrogen [Mass/Vol] 13 mg/dL Normal 6 - 23 [facility] Comment on above: Performed By: #### B MP #### [address] [address] CBC AND DIFFERENTIALon 09-12 % AUTOMATED IMMATURE GRAN 0.9 % Normal 0.0 - 0.9 [facility] Comment on above: Result Comment: Martina ture Granulocyte Count (IG) includes promyelocytes, myelocytes and metamyelocytes but does not include bands. Percent differential counts (%) should be interpreted in the context of the absolute cell counts (cells/L). Performed By: #### L ACT #### [place] [place] [id number] Basophils (Bld) [#/Vol] 0.08 10*3/uL Normal 0.00 - 0.10 [facility] Comment on above: Performed By: #### L ACT #### [address] [place] [id number] Basophils/100 WBC (Bld) 0.8 % Normal 0.0 - 2.0 [facility] Comment on above: Performed By: #### L ACT #### [address] [place] [id number] Eosinophils (Bld) [#/Vol] 0.52 10*3/uL High 0.00 - 0.40 [facility] Comment on above: Performed By: #### L ACT #### [place] [place] [id number] Eosinophils/100 WBC (Bld) 4.9 % Normal 0.0 - 6.0 [facility] Comment on above: Performed By: #### L ACT #### [place] [id number] Erythrocyte distribution width (RBC) [Ratio] 17.2 % High 11.5 - 14.5 [facility] Comment on above: Performed By: #### L ACT #### [place] [id number] Hematocrit (Bld) [Volume fraction] 28.1 % Low 36.0 - 46.0 [facility] Comment on above: Performed By: #### L ACT #### [address] [address] Hemoglobin (Bld) [Mass/Vol] 8.1 g/dL Low 12.0 - 16.0 [facility] Comment on above: Performed By: #### L ACT #### [address] [address] Lymphocytes (Bld) [#/Vol] 2.75 10*3/uL Normal 0.80 - 3.00 [facility] Comment on above: Performed By: #### L ACT #### [address] [address] Lymphocytes/100 WBC (Bld) 26.0 % Normal 13.0 - 44.0 [facility] Comment on above: Performed By: #### L ACT #### [address] [address] MCHC (RBC) [Mass/Vol] 28.8 g/dL Low 32.0 - 36.0 [facility] Comment on above: Performed By: #### L ACT #### [address] [address] MCV (RBC) [Entitic vol] 71 fL Low 80 - 100 [facility] Comment on above: Performed By: #### L ACT #### [address] [address] Monocytes (Bld) [#/Vol] 0.83 10*3/uL High 0.05 - 0.80 [facility] Comment on above: Performed By: #### L ACT #### [address] [address] Monocytes/100 WBC (Bld) 7.8 % Normal 2.0 - 10.0 [facility] Comment on above: Performed By: #### L ACT #### [address] [address] Neutrophils (Bld) [#/Vol] 6.31 10*3/uL High 1.60 - 5.50 [facility] Comment on above: Result Comment: Perc ent differential counts (%) should be interpreted in the context of the absolute cell counts (cells/L). Performed By: #### L ACT #### [address] [address] Neutrophils/100 WBC (Bld) 59.6 % Normal 40.0 - 80.0 [facility] Comment on above: Performed By: #### L ACT #### [address] [address] Platelets (Bld) [#/Vol] 261 10*3/uL Normal 150 - 450 [facility] Comment on above: Performed By: #### L ACT #### [address] [address] RBC 3.98 x10E12/L Low 4.00 - 5.20 [facility] Comment on above: Performed By: #### L ACT #### [address] [address] WBC (Bld) [#/Vol] 10.6 10*3/uL Normal 4.4 - 11.3 [facility] Comment on above: Performed By: #### L ACT #### [address] [address] Daily Progress Note-General Internal Medicineon 09-12-2022 Daily [...] time. Objective Data: Objective Information: T PRBPMAPSpO2 Value36.85603837/7497% Date/Time09/12 7: 7: 7: 7: 7:35 Range(36.1C - 36.8C ) (66 - 87 ) (16 - 20 ) (100 - 113 )/ (64 - 74 ) (95% - 97% ) Pain reported at 09/12 9:07: 3 = Mild ---- Intake and Output ----- Mn/Dy/Year TimeIntakeOutputNet Sep 12, 2022 6:00 [id number] Sep 11, 2022 10:00 [id number] Sep 11, 2022 2:00 [id number] The Intake and Output Totals for the last 24 hours are: IntakeOutputNet [id number] Physical Exam by System: Constitutional: Well developed, [...] Spontaneous/Phasic Peroneal Yes None PTV Yes None [id number] Don Rico MD Final [facility] Venous Duplex Ultrasound for DVT [Sep 11 2022 7:14PM] Conclusion: CONCLUSIONS: 1. Left ventricular systolic function is normal with (more content not included)... Normal [facility] Daily Progress Note-Nephrolo gyon 09-12-2022 Daily [...] . Objective Data: Objective Information: T PRBPMAPSpO2 Value36.23914247/7497% Date/Time09/12 7: 7: 7: 7: 7:35 Range(36.1C - 36.8C ) (66 - 87 ) (16 - 20 ) (100 - 113 )/ (64 - 74 ) (95% - 97% ) Pain reported at 09/12 9:07: 3 = Mild ---- Intake and Output ----- Mn/Dy/Year TimeIntakeOutputNet Sep 12, 2022 6:00 [id number] Sep 11, 2022 10:00 [id number] Sep 11, 2022 2:00 [id number] The Intake and Output Totals for the last 24 hours are: IntakeOutputNet [id number] Physical Exam by System: Constitutional: Awake, alert, [...] 12-Sep-2022 11:24 by Ru Mills () Normal [facility] GLUCOSE-POCTon 09-12-2022 Glucose [Mass/Vol] 177 mg/dL High - [address] [place] [address] Comment on above: Performed By: #### U ARFX #### [address] [address] Glucose [Mass/Vol] 159 mg/dL High 74 - [address] [place] [address] Comment on above: Performed By: #### L ACT #### [address] [address] Glucose [Mass/Vol] 137 mg/dL High 74 - [address] [place] [address] Comment on above: Performed By: #### G ROLLY ####[address] [address] Glucose [Mass/Vol] 146 mg/dL High [address] [place] [address] Comment on above: Performed By: #### L ACT #### [address] [place] [address] OSMOLALITY,URINE SPOTon 060 OSMOLALITY,URINE SPOT 441 mOsm/kg Normal 200 - 1200 [facility] Comment on above: Performed By: #### L ACT #### [address] [address] OT Evaluation v2-occupationa l therapyon 09-12-2022 OT Evaluation v2-occupational therapy Rehab: Info: Mode of Treatmentattempted; occupational therapy Evaluation Not Performedx2 attempts made to see pt between 1447 and 1513. Pt unavailable at this time, with other care provider. Will attempt tomorrow. 09/13 Electronic Signatures: Jadyn Monk (OT) (Signed 12-Sep-2022 15:13) Authored: Info Last Updated: 12-Sep-2022 15:13 by Jadyn Monk (OT) [facility] Rehab Note-individual therap yon 09-12-2022 Rehab Note-individual therapy Rehab: Info: Disciplinephysical therapy coordinator Mode of Treatmentindividual therapy; physical therapy Time IN10:35 Time OUT11:06 Total Treatment [id number] Patient in ... at end of sessionbed, [...] to supine Supine to Sit to Supine [place] (Bed Mobility)contact guard; 1 person assist; minimum [...] and safety. MB Electronic Signatures: Laurent Mckeon (DISTRICT FIRE MANAGEMENT OFFICER) (Signed 12-Sep-2022 12:06) Authored: Info, Vision/Cognition, Mobility/Tone, Motor, Sensory, Outcomes Tools, Short Term Goals, Outcome Summary James Mendez (PT) (Signed 13-Sep-2022 08:29) Co-Signer: Outcome Summary Last Updated: 13-Sep-2022 08:29 by James Mendez (PT) Normal [facility] SODIUM, URINE SPOTon 023 CREATININE,URINE 45.6 mg/dL Normal 20.0 - 320.[address] [facility] Comment on above: Performed By: #### G ROLLY #### [address] [address] Sodium (U) [Moles/Vol] 156 mmol/L Normal Not Established [facility] Comment on above: Performed By: #### G ROLLY #### [address] [address] SODIUM/CREAT RATIO 342 mmol/g Creat Normal Not Established [facility] Comment on above: Performed By: #### G ROLLY #### [address] [address] URIC ACIDon 09-12-2022 Urate [Mass/Vol] 4.1 mg/dL Normal 2.3 - 6.7 [facility] Comment on above: Result Comment: Loly puncture immediately after or during the administration of Metamizole may lead to falsely low results. Testing should be performed immediately prior to Metamizole dosing. Performed By: #### L ACT #### [address] [address] CBC AND DIFFERENTIALon 09-11 % AUTOMATED IMMATURE GRAN 0.5 % Normal 0.0 - 0.9 [facility] Comment on above: Result Comment: Martina ture Granulocyte Count (IG) includes promyelocytes, myelocytes and metamyelocytes but does not include bands. Percent differential counts (%) should be interpreted in the context of the absolute cell counts (cells/L). Performed By: #### U ARFX #### [address] [address] Basophils (Bld) [#/Vol] 0.06 10*3/uL Normal 0.00 - 0.10 [facility] Comment on above: Performed By: #### U ARFX #### [address] [address] Basophils/100 WBC (Bld) 0.5 % Normal 0.0 - 2.0 [facility] Comment on above: Performed By: #### U ARFX #### [address] [address] Eosinophils (Bld) [#/Vol] 0.48 10*3/uL High 0.00 - 0.40 [facility] Comment on above: Performed By: #### U ARFX #### [address] [address] Eosinophils/100 WBC (Bld) 4.0 % Normal 0.0 - 6.0 [facility] Comment on above: Performed By: #### U ARFX #### [address] [address] Erythrocyte distribution width (RBC) [Ratio] 17.1 % High 11.5 - 14.5 [facility] Comment on above: Performed By: #### U ARFX #### [address] [address] Hematocrit (Bld) [Volume fraction] 27.8 % Low 36.0 - 46.0 [facility] Comment on above: Performed By: #### U ARFX #### [address] [address] Hemoglobin (Bld) [Mass/Vol] 8.0 g/dL Low 12.0 - 16.0 [facility] Comment on above: Performed By: #### U ARFX #### [address] [address] Lymphocytes (Bld) [#/Vol] 2.95 10*3/uL Normal 0.80 - 3.00 [facility] Comment on above: Performed By: #### U ARFX #### [address] [address] Lymphocytes/100 WBC (Bld) 24.4 % Normal 13.0 - 44.0 [facility] Comment on above: Performed By: #### U ARFX #### [address] [address] MCHC (RBC) [Mass/Vol] 28.8 g/dL Low 32.0 - 36.0 [facility] Comment on above: Performed By: #### U ARFX #### [address] [address] MCV (RBC) [Entitic vol] 71 fL Low 80 - 100 [facility] Comment on above: Performed By: #### U ARFX #### [address] [address] Monocytes (Bld) [#/Vol] 1.01 10*3/uL High 0.05 - 0.80 [facility] Comment on above: Performed By: #### U ARFX #### [address] [address] Monocytes/100 WBC (Bld) 8.4 % Normal 2.0 - 10.0 [facility] Comment on above: Performed By: #### U ARFX #### [address] [address] Neutrophils (Bld) [#/Vol] 7.53 10*3/uL High 1.60 - 5.50 [facility] Comment on above: Result Comment: Perc ent differential counts (%) should be interpreted in the context of the absolute cell counts (cells/L). Performed By: #### U ARFX #### [address] [address] Neutrophils/100 WBC (Bld) 62.2 % Normal 40.0 - 80.0 [facility] Comment on above: Performed By: #### U ARFX #### [address] [address] Platelets (Bld) [#/Vol] 252 10*3/uL Normal 150 - 450 [facility] Comment on above: Performed By: #### U ARFX #### [address] [address] RBC 3.94 x10E12/L Low 4.00 - 5.20 [facility] Comment on above: Performed By: #### U ARFX #### [address] [address] WBC (Bld) [#/Vol] 12.1 10*3/uL High 4.4 - 11.3 [facility] Comment on above: Performed By: #### U ARFX #### [address] [address] COMPREHENSIVE PANELon 2022 Albumin [Mass/Vol] 3.1 g/dL Low 3.4 - 5.[address] [facility] Comment on above: Performed By: #### G ROLLY #### [address] [address] ALP [Catalytic activity/Vol] 89 U/L Normal 33 - 136 [facility] Comment on above: Performed By: #### G ROLLY #### [address] [address] ALT [Catalytic activity/Vol] 6 U/L Low 7 - 45 [facility] Comment on above: Result Comment: Madhavi ents treated with Sulfasalazine may generate falsely decreased results for ALT. Performed By: #### G ROLLY #### [address] [address] Anion gap [Moles/Vol] 9 mmol/L Low 10 - 20 [facility] Comment on above: Performed By: #### G ROLLY #### [address] [address] AST [Catalytic activity/Vol] 10 U/L Normal 9 - 39 [facility] Comment on above: Performed By: #### G ROLLY #### [address] [address] Bilirubin [Mass/Vol] 0.4 mg/dL Normal 0.0 - 1.2 [facility] Comment on above: Performed By: #### G ROLLY #### [address] [address] Calcium [Mass/Vol] 8.5 mg/dL Low 8.6 - 10.[address] [facility] Comment on above: Performed By: #### G ROLLY #### [address] [address] Chloride [Moles/Vol] 96 mmol/L Low 98 - 107 [facility] Comment on above: Performed By: #### G ROLLY #### [address] [address] Creatinine [Mass/Vol] 0.72 mg/dL Normal 0.50 - 1.05 [facility] Comment on above: Performed By: #### G ROLLY #### [address] [address] GFR/1.73 sq M.predicted among non-blacks MDRD (S/P/Bld) [Vol rate/Area] 87 mL/min/{1.73_m2} Normal >90 [facility] Comment on above: Result Comment: CALC ULATIONS OF ESTIMATED GFR ARE PERFORMED USING THE 2020 CKD-EPI STUDY REFIT EQUATION WITHOUT THE RACE VARIABLE FOR THE IDMS-TRACEABLE CREATININE METHODS. https://jasn.asnjournals.org/content//ASN.51463 22858 Performed By: #### G ROLLY #### [address] [address] Glucose [Mass/Vol] 136 mg/dL High 74 - [address] [facility] Comment on above: Performed By: #### G ROLLY #### [address] [address] HCO3 (Bld) [Moles/Vol] 30 mmol/L Normal 21 - 32 [facility] Comment on above: Performed By: #### G ROLLY #### [address] [address] Potassium [Moles/Vol] 3.5 mmol/L Normal 3.5 - 5.3 [facility] Comment on above: Performed By: #### G ROLLY #### [address] [address] Protein [Mass/Vol] 5.9 g/dL Low 6.4 - 8.[address] [facility] Comment on above: Performed By: #### G ROLLY #### [address] [address] Sodium [Moles/Vol] 131 mmol/L Low 136 - [address] [facility] Comment on above: Performed By: #### G ROLLY #### [address] [address] Urea nitrogen [Mass/Vol] 13 mg/dL Normal 6 - 23 [facility] Comment on above: Performed By: #### G ROLLY #### [address] [address] Consult-Nephrologyon 023 Consult-Nephrology Service: Service: Nephrology Consult: [...] Known Allergies: Objective: Objective Information: T PRBPMAPSpO2 Value36.82202231/7095% Date/Time09/11 7: 7: 7: 7: 7:54 Range(36.4C [...] Bilateral [J (more content not included)... Normal [facility] Daily Progress Note-General Internal Medicineon 09-11-2022 Daily Progress Note-General Internal Medicine Service: General Internal Medicine Subjective Data: DARYN GUILLERMO is a 76 year old Female who is Hospital Day # 4. Overnight Events: Patient had an uneventful night. Additional Information: Patient seen and examined at bedside. She is doing well. No issues today Objective Data: Objective Information: T PRBPMAPSpO2 Value36.21016744/7095% Date/Time09/11 7: 7: 7: 7: 7:54 Range(36.4C - 36.7C ) (66 - 94 ) (16 - 19 ) (107 - 124 )/ (69 - 74 ) (94% - 98% ) Pain reported at 09/10 20:00: 0 = None ---- Intake and Output ----- Mn/Dy/Year TimeIntakeOutputNet Sep 11, 2022 6:00 [id number] Sep 10, 2022 10:00 [id number] Sep 10, 2022 2:00 [id number] The Intake and Output Totals for the last 24 hours are: IntakeOutputNet [id number] Physical Exam by System: Constitutional: Well developed, [...] wounds Hi (more content not included)... Normal [facility] Echocardiogramon 09-11-2022 Echocardiography [facility] nter [address] [place] [address] ext-2528, TRANSTHORACIC ECHOCARDIOGRAM REPORT Patient Name: DARYN RUSSELLNETT Reading Physician: [id number] Norman Valdivia MD Study Date: 09/11/2022 Referring ANGELIQUE CLARKE Physician: MRN/PID: [id number] PCP: Accession/Order#: [id number] Department [address] Location: Date of : 1945 Fellow: Gender: F Nurse: Admit Date: 09/08/2022 Electrolytic De Scaler: Asia Aquino RVT, [facility] Admission Status: Inpatient - Additional Staff: Routine Height: 167.00 cm CC Report to: Weight: 116.00 kg Study Type: Echocardiogram BSA: 2.21 m2 Blood Pressure: 111 /70 mmHg Diagnosis/ICD: I48.0-Paroxysmal atrial fibrillation Indication: AFib Procedure/CPT: Echo Complete w Full Doppler-[id number] Patient History: Pertinent History: Previous echo 02-14-2019. [...] LA Area A2C: 26.8 cm2 LA [place] A4C: 6.8 cm LA [place] A2C: 5.7 cm LA Volume Index: 44.3 [...] 1.1 m/s (0.6-0.9m/s) PV Max P.5 mmHg [id number] Norman Valdivia MD Electronically signed on 09/11/2022 at 11:54:26 AM Final Normal [facility] FECAL OCCULT BLD IMMUNOASSAY on 09-11-2022 FECAL OCCULT BLD IMMUNOASSAY Negative Normal Negative [facility] Comment on above: Result Comment: This [...] date. Performed By: #### U ARFX #### [place] [address] Lab Specimen Source Stool Normal [facility] Comment on above: Performed By: #### U ARFX #### [place] [id number] GLUCOSE-POCTon 09-11-2022 Glucose [Mass/Vol] 169 mg/dL High [address] [place] [address] Comment on above: Performed By: #### U ARFX #### [place] [address] Glucose [Mass/Vol] 203 mg/dL High [address] [place] [address] Comment on above: Performed By: #### G ROLLY #### [place] [address] Glucose [Mass/Vol] 134 mg/dL High [address] [place] [address] Comment on above: Performed By: #### G ROLLY #### [place] [id number] Glucose [Mass/Vol] 153 mg/dL High [address] [place] [address] Comment on above: Performed By: #### G ROLLY ####[place] [address] Rehab Note-physical therapyo n 09-11-2022 Rehab Note-physical therapy Rehab: Info: Disciplinephysical therapy coordinator Mode of Treatmentphysical therapy Time IN13:54 Time OUT14:31 Total Treatment [id number] Patient in ... at end of sessionbed, [...] Summary: Physical TherapyPatient became emotional when nursing faculty kept adjusting portable telemetry and stating her [...] Info, Mobility/Tone, Motor, Outcomes Tools Constance Gonzalez (DISTRICT FIRE MANAGEMENT OFFICER) (Signed 11-Sep-2022 15:56) Authored: Info, Mobility/Tone, Motor, Sensory, Outcomes Tools, Outcome Summary Valery Christy (PT) (Signed 11-Sep-2022 16:41) Co-Signer: Info, Mobility/Tone, Motor, Sensory, Outcomes Tools, Outcome Summary Last Updated: 11-Sep-2022 16:41 by Valery Christy (PT) Normal [facility] VAS LAB Venous Duplex Ultra sound DVTon 09-11-2022 VAS LAB Venous Duplex Ultrasound DVT [place] [id number] [phone], Vascular Lab Report Lower Venous Duplex Ultrasound Patient Name: DARYN GUILLERMO Reading Physician: [id number] Don Rico MD Study Date: 09/11/2022 Referring Physician: CHIDI SCHULZ MRN/PID: [id number] PCP: Accession/Order#: [id number] CC Report to: Date of : 1945 Technologist: Cristal Iyer RVT Gender: F Technologist 2: Admission Status: Inpatient Location Performed: [facility] Diagnosis/ICD: R60.0-Localized (leg) edema; M79.89-Left leg swelling; M79.605-Pain in left leg Procedure/CPT: 41111 Peripheral venous duplex scan for DVT complete-[id number] CONCLUSIONS: Right Lower Venous: No evidence of [...] Spontaneous/Phasic Peroneal Yes None PTV Yes None [id number] Don Rico MD Final Normal [facility] BASIC METABOLIC PANELon 06-0 4-2023 Anion gap [Moles/Vol] 10 mmol/L Normal 10 - 20 [facility] Comment on above: Performed By: #### B MP #### [address] [address] Calcium [Mass/Vol] 8.4 mg/dL Low 8.6 - 10.[address] [facility] Comment on above: Performed By: #### B MP #### [address] [address] Chloride [Moles/Vol] 97 mmol/L Low 98 - 107 [facility] Comment on above: Performed By: #### B MP #### [address] [address] Creatinine [Mass/Vol] 0.82 mg/dL Normal 0.50 - 1.05 [facility] Comment on above: Performed By: #### B MP #### [address] [address] GFR/1.73 sq M.predicted among non-blacks MDRD (S/P/Bld) [Vol rate/Area] 75 mL/min/{1.73_m2} Normal >90 [facility] Comment on above: Result Comment: CALC ULATIONS OF ESTIMATED GFR ARE PERFORMED USING THE 2020 CKD-EPI STUDY REFIT EQUATION WITHOUT THE RACE VARIABLE FOR THE IDMS-TRACEABLE CREATININE METHODS. https://jasn.asnjournals.org/content//ASN.26887 60449 Performed By: #### B MP #### [address] [address] Glucose [Mass/Vol] 152 mg/dL High 74 - [address] [facility] Comment on above: Performed By: #### B MP #### [address] [address] HCO3 (Bld) [Moles/Vol] 28 mmol/L Normal 21 - 32 [facility] Comment on above: Performed By: #### B MP #### [address] [address] Potassium [Moles/Vol] 3.6 mmol/L Normal 3.5 - 5.3 [facility] Comment on above: Performed By: #### B MP #### [address] [address] Sodium [Moles/Vol] 131 mmol/L Low 136 - [address] [facility] Comment on above: Performed By: #### B MP #### [address] [address] Urea nitrogen [Mass/Vol] 17 mg/dL Normal 6 - 23 [facility] Comment on above: Performed By: #### B MP #### [address] [address] CBC AND DIFFERENTIALon 09-10 % AUTOMATED IMMATURE GRAN 0.6 % Normal 0.0 - 0.9 [facility] Comment on above: Result Comment: Martina ture Granulocyte Count (IG) includes promyelocytes, myelocytes and metamyelocytes but does not include bands. Percent differential counts (%) should be interpreted in the context of the absolute cell counts (cells/L). Performed By: #### C BCDF ####[address] [address] Basophils (Bld) [#/Vol] 0.06 10*3/uL Normal 0.00 - 0.10 [facility] Comment on above: Performed By: #### C BCDF ####[address] [address] Basophils/100 WBC (Bld) 0.5 % Normal 0.0 - 2.0 [facility] Comment on above: Performed By: #### C BCDF ####[address] [address] Eosinophils (Bld) [#/Vol] 0.28 10*3/uL Normal 0.00 - 0.40 [facility] Comment on above: Performed By: #### C BCDF ####[address] [address] Eosinophils/100 WBC (Bld) 2.3 % Normal 0.0 - 6.0 [facility] Comment on above: Performed By: #### C BCDF ####[address] [address] Erythrocyte distribution width (RBC) [Ratio] 17.2 % High 11.5 - 14.5 [facility] Comment on above: Performed By: #### C BCDF ####[address] [address] Hematocrit (Bld) [Volume fraction] 26.4 % Low 36.0 - 46.0 [facility] Comment on above: Performed By: #### C BCDF ####[address] [address] Hemoglobin (Bld) [Mass/Vol] 7.8 g/dL Low 12.0 - 16.0 [facility] Comment on above: Performed By: #### C BCDF ####[address] [address] Lymphocytes (Bld) [#/Vol] 2.19 10*3/uL Normal 0.80 - 3.00 [facility] Comment on above: Performed By: #### C BCDF ####[address] [address] Lymphocytes/100 WBC (Bld) 17.6 % Normal 13.0 - 44.0 [facility] Comment on above: Performed By: #### C BCDF ####[address] [address] MCHC (RBC) [Mass/Vol] 29.5 g/dL Low 32.0 - 36.0 [facility] Comment on above: Performed By: #### C BCDF ####[address] [address] MCV (RBC) [Entitic vol] 70 fL Low 80 - 100 [facility] Comment on above: Performed By: #### C BCDF ####[address] [address] Monocytes (Bld) [#/Vol] 1.19 10*3/uL High 0.05 - 0.80 [facility] Comment on above: Performed By: #### C BCDF ####[address] [address] Monocytes/100 WBC (Bld) 9.6 % Normal 2.0 - 10.0 [facility] Comment on above: Performed By: #### C BCDF ####[address] [address] Neutrophils (Bld) [#/Vol] 8.64 10*3/uL High 1.60 - 5.50 [facility] Comment on above: Result Comment: Perc ent differential counts (%) should be interpreted in the context of the absolute cell counts (cells/L). Performed By: #### C BCDF ####[address] [address] Neutrophils/100 WBC (Bld) 69.4 % Normal 40.0 - 80.0 [facility] Comment on above: Performed By: #### C BCDF ####[address] [address] Platelets (Bld) [#/Vol] 225 10*3/uL Normal 150 - 450 [facility] Comment on above: Performed By: #### C BCDF ####[address] [address] RBC 3.78 x10E12/L Low 4.00 - 5.20 [facility] Comment on above: Performed By: #### C BCDF ####[address] [address] WBC (Bld) [#/Vol] 12.4 10*3/uL High 4.4 - 11.3 [facility] Comment on above: Performed By: #### C BCDF ####[address] [address] Daily Progress Note-General Internal Medicineon 09-10-2022 Daily [...] vancomycin Objective Data: Objective Information: T PRBPMAPSpO2 Value36.06427938/7497% Date/Time6/4 7: 7: 7: 7: 7:50 Range(36.1C - 37.1C ) (58 - 94 ) (18 - 19 ) (101 - 117 )/ (57 - 74 ) (97% - 98% ) Highest temp of 37.1 C was recorded at 09/09 15:27 Pain reported at 09/10 9:30: 0 = None ---- Intake and Output ----- Mn/Dy/Year TimeIntakeOutalta [facility] hospitalNet Sep 10, 2022 6:00 [id number] Sep 09, 2022 10:00 [id number] Sep 09, 2022 2:00 [id number] The Intake and Output Totals for the last 24 hours are: [facility]Outalta [facility] hospitalNet [id number] Physical Exam by System: Constitutional: Well developed, [...] medical history (more content not included)... Normal [facility] EMR ADDONon 09-10-2022 ADDON CONFIRMATION REQUEST REC'D Normal [facility] Comment on above: Performed By: #### U ARFX #### [address] [address] GLUCOSE-POCTon 09-10-2022 Glucose [Mass/Vol] 160 mg/dL High 74 - [address] [facility] Comment on above: Performed By: #### U ARFX #### [address] [address] Glucose [Mass/Vol] 171 mg/dL High 74 - [address] [facility] Comment on above: Performed By: #### G ROLLY #### [address] [address] Glucose [Mass/Vol] 163 mg/dL High 74 - [address] [facility] Comment on above: Performed By: #### G ROLLY #### [address] [address] Glucose [Mass/Vol] 147 mg/dL High 74 - [address] [facility] Comment on above: Performed By: #### U ARFX #### [address] [address] MAGNESIUMon 09-10-2022 Magnesium [Mass/Vol] 1.80 mg/dL Normal 1.60 - 2.40 [facility] Comment on above: Performed By: #### U ARFX #### [address] [address] PT/INRon 09-10-2022 PT Coag (PPP) [Time] 16.8 s High 9.8 - 13.4 [facility] Comment on above: Performed By: #### P TINR ####[address] [address] PT, INR 1.4 High 0.9 - 1.1 [facility] Comment on above: Performed By: #### P TINR ####[address] [address] Rehab Note-individual therap yon 09-10-2022 Rehab Note-individual therapy Rehab: Info: Disciplinephysical therapy coordinator Mode of Treatmentindividual therapy Time IN11:07 Time OUT11:26 Total Treatment [id number] Patient in ... at end of sessionbed, [...] Mobility/Tone: Bed Mobility Assessment/Interventions supine to sit [id number] [place] (Bed Mobility)supervision Assistive Device (Bed Mobility)bed rails [...] POC as tolerated. Electronic Signatures: Ladi Vasquez (DISTRICT FIRE MANAGEMENT OFFICER) (Signed 10-Sep-2022 11:45) Authored: Info, Vision/Cognition, Mobility/Tone, Motor, Sensory, Outcomes Tools, Outcome Summary Cameron Perkins (PT) (Signed 10-Sep-2022 13:51) Co-Signer: Info, Vision/Cognition, Mobility/Tone, Motor, Sensory, Outcomes Tools, Outcome Summary Last Updated: 10-Sep-2022 13:51 by Cameron Perkins (PT) [facility] URINALYSIS WITH CULTURE IF I NDICATEDon 09-10-2022 Appearance (U) Canceled [facility] Comment on above: Order Comment: TEST URINALYSIS WITH CULTURE IF INDICATED WAS CANCELLED, 09/10/2022 17:38 NSR. Performed By: #### G ROLLY #### [facility] [address] [place] [address] ASCORBIC ACID Canceled [facility] Comment on above: Order Comment: TEST URINALYSIS WITH CULTURE IF INDICATED WAS CANCELLED, 09/10/2022 17:38 NSR. Result Comment: Conc entrations > = 20 mg/dL of ascorbic acid can be expected to cause strong interference in the reactions testing for glucose, nitrite and blood. It is recommended to discontinue Vitamin C administration and retest in 10 hours. Performed By: #### G ROLLY #### [address] [address] Bilirubin Ql (U) Canceled [facility] Comment on above: Order Comment: TEST URINALYSIS WITH CULTURE IF INDICATED WAS CANCELLED, 09/10/2022 17:38 NSR. Performed By: #### G ROLLY #### [address] [address] Color (U) Canceled [facility] Comment on above: Order Comment: TEST URINALYSIS WITH CULTURE IF INDICATED WAS CANCELLED, 09/10/2022 17:38 NSR. Performed By: #### G ROLLY #### [address] [address] Glucose Ql (U) Canceled [facility] Comment on above: Order Comment: TEST URINALYSIS WITH CULTURE IF INDICATED WAS CANCELLED, 09/10/2022 17:38 NSR. Performed By: #### G ROLLY #### [address] [address] Hemoglobin Ql (U) Canceled [facility] Comment on above: Order Comment: TEST URINALYSIS WITH CULTURE IF INDICATED WAS CANCELLED, 09/10/2022 17:38 NSR. Performed By: #### G ROLLY #### [address] [address] Ketones Ql (U) Canceled [facility] Comment on above: Order Comment: TEST URINALYSIS WITH CULTURE IF INDICATED WAS CANCELLED, 09/10/2022 17:38 NSR. Performed By: #### G ROLLY #### [address] [address] Leukocyte esterase Test strip Ql (U) Canceled [facility] Comment on above: Order Comment: TEST URINALYSIS WITH CULTURE IF INDICATED WAS CANCELLED, 09/10/2022 17:38 NSR. Performed By: #### G ROLLY #### [place] [address] Nitrite Ql (U) Canceled [facility] Comment on above: Order Comment: TEST URINALYSIS WITH CULTURE IF INDICATED WAS CANCELLED, 09/10/2022 17:38 NSR. Performed By: #### G ROLLY #### [place] [address] pH Canceled [facility] Comment on above: Order Comment: TEST URINALYSIS WITH CULTURE IF INDICATED WAS CANCELLED, 09/10/2022 17:38 NSR. Performed By: #### G ROLLY #### [place] [address] Protein Ql (U) Canceled [facility] Comment on above: Order Comment: TEST URINALYSIS WITH CULTURE IF INDICATED WAS CANCELLED,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 #### C BCDF #### [address] [address] ALP [Catalytic activity/Vol] 92 U/L Normal 33 - 136 [facility] Comment on above: Performed By: #### C BCDF #### [place] [id number] ALT [Catalytic activity/Vol] 8 U/L Normal 7 - 45 [facility] Comment on above: Result Comment: Madhavi ents treated with Sulfasalazine may generate falsely decreased results for ALT. Performed By: #### C BCDF #### [address] [address] AST [Catalytic activity/Vol] 16 U/L Normal 9 - 39 [facility] Comment on above: Performed By: #### C BCDF #### [address] [address] Bilirubin [Mass/Vol] 0.6 mg/dL Normal 0.0 - 1.2 [facility] Comment on above: Performed By: #### C BCDF #### [address] [address] Calcium [Mass/Vol] 8.8 mg/dL Normal 8.6 - 10.[address] [facility] Comment on above: Performed By: #### C BCDF #### [address] [address] Chloride [Moles/Vol] 93 mmol/L Low 98 - 107 [facility] Comment on above: Performed By: #### C BCDF #### [address] [address] Creatinine [Mass/Vol] 1.00 mg/dL Normal 0.50 - 1.05 [facility] Comment on above: Performed By: #### C BCDF #### [address] [address] GFR/1.73 sq M.predicted among non-blacks MDRD (S/P/Bld) [Vol rate/Area] 59 mL/min/{1.73_m2} Abnormal >90 [facility] Comment on above: Result Comment: CALC ULATIONS OF ESTIMATED GFR ARE PERFORMED USING THE 2020 CKD-EPI STUDY REFIT EQUATION WITHOUT THE RACE VARIABLE FOR THE IDMS-TRACEABLE CREATININE METHODS. https://jasn.asnjournals.org/content/early/ASN.47818 38062 Performed By: #### C BCDF #### [address] [address] Glucose [Mass/Vol] 170 mg/dL High 74 - [address] [facility] Comment on above: Performed By: #### C BCDF #### [address] [address] HCO3 (Bld) [Moles/Vol] 27 mmol/L Normal 21 - 32 [facility] Comment on above: Performed By: #### C BCDF #### [address] [address] Potassium [Moles/Vol] 3.8 mmol/L Normal 3.5 - 5.3 [facility] Comment on above: Performed By: #### C BCDF #### [address] [address] Protein [Mass/Vol] 6.7 g/dL Normal 6.4 - 8.[address] [facility] Comment on above: Performed By: #### C BCDF #### [place] [id number] Urea nitrogen [Mass/Vol] 20 mg/dL Normal 6 - 23 [facility] Comment on above: Performed By: #### C BCDF #### [place] [id number] CORONAVIRUS 2019 BY PCRon Lab Specimen Source Nasal, Nasopharyngeal Normal [facility] Comment on above: Performed By: #### C OV19 #### [place] [id number] SARS-CoV-2 (COVID-19) RNA SEFERINO+probe Ql (Unsp spec) Not detected Normal Not Detected [facility] Comment on above: Result Comment: . This test has received FDA Emergency Use Authorization (EUA) and has been verified by [facility]. This test is only authorized for the duration of time that circumstances exist to justify the authorization of the emergency use of in vitro diagnostic tests for the detection of SARS-CoV-2 virus and/or diagnosis of COVID-19 infection under section 564(b)(1) of the Act, 21 U.S.C. 360bbb-3(b)(1), unless the authorization is terminated or revoked sooner. [facility] is certified under CLIA-88 as qualified to perform high complexity testing. Testing is performed in the [facility] laboratory located at [address] [place] [address]. SARS-CoV-2/Flu/RSV Multiplex Test: Fact sheet for providers: https://www.fda.gov/media/558259/download Fact sheet for patients: https://www.fda.gov/media/001421/download Performed By: #### C OV19 #### [place] [address] Covid 19 Resultson 3 SARS-CoV-2 (COVID-19) RNA [...] also be contacted by the [facility] to see if any of your close [...] or Naproxen (Aleve) can also be used. Fjzn-dce-lkadnqv cough and cold medicines can be used according to the instructions on the package. Some pcpt-nyz-tbexlce medicines also contain acetaminophen. Make sure you [...] water are not available, use alcohol-based hand diagnostics sales developer. Avoid touching your eyes, nose, and mouth [...] stopping home isolation precautions. According to the [facility], you can discontinue home isolation precautions when you have met both of these criteria: Your fever and respiratory symptoms have been gone for 24 rai (more content not included)... Normal [facility] GLUCOSE-POCTon 09-08-2022 Glucose [Mass/Vol] 177 mg/dL High 74 - [address] [facility] Comment on above: Performed By: #### G ROLLY ####[address] [address] LACTATEon 09-08-2022 LACTATE Canceled Normal [facility] Comment on above: Order Comment: TEST LACTATE WAS CANCELLED, 09/08/2022 17:31 result was normal, does not needrepeated . Result Comment: Loly puncture immediately after or during the administration of Metamizole may lead to falsely low results. Testing should be performed immediately prior to Metamizole dosing. Performed By: #### C OV19 #### [address] [address] Lactate [Moles/Vol] 1.4 mmol/L Normal 0.4 - 2.0 [facility] Comment on above: Result Comment: Loly puncture immediately after or during the administration of Metamizole may lead to falsely low results. Testing should be performed immediately prior to Metamizole dosing. Performed By: #### L ACT #### [address] [address] Order Reconciliationon 09-08 Order Reconciliation Page 1 Admission Reconciliation Document Reconciliation Type: Admission requested on behalf of Angelique Clarke (Physician) done by Angelique Clarke) Admission - Reconciliation: 08-Sep-2022 17:31 by: Angelique Clarke) Home MedicationsEnteredLast Dose TakenReconciled with current Order Reconciliation Comment/ Additional Information ATENOLOL 100MG TAB 0.5 tab(s) orally 2 times a [id number] 3 10:00 AM Atenolol Tablet (TENORMIN)DOSE = 50 mg Oral 2 Times a DayATENOLOL 100MG TAB continued as the inpatient order Atenolol LISINOPRIL 5MG TAB 1 tab(s) orally once a [id number] 3 10:00 AM Lisinopril Tablet (PRINIVIL, ZESTRIL)DOSE = 5 mg Oral DailyLISINOPRIL 5MG TAB continued as the inpatient order Lisinopril LORazepam 1MG TAB 1 tab(s) orally once a day (at bedtime)08-Sep-2022 10:00 PM LORazepam Tablet (ATIVAN)DOSE = 1 mg Oral At Bedtime LORazepam 1MG TAB continued as the inpatient order LORazepam METFORMIN 500MG TAB 1 tab(s) orally 2 times a [id number] 3 10:00 AM Reviewed and Held POT CHLORIDE 10MEQ ER CAP 1 cap(s) orally once a [id number] 3 10:00 AM Potassium Chloride Extended Release Tablet, Extended ReleaseDOSE = 10 mEq Oral DailyPOT CHLORIDE 10MEQ ER CAP continued as the inpatient order Potassium Chloride Extended Release ROSUVASTATIN 10MG TAB 1 tab(s) orally once a [id number] 3 10:00 AM Rosuvastatin Tablet (CRESTOR)DOSE = 10 mg Oral DailyROSUVASTATIN 10MG TAB continued as the inpatient order Rosuvastatin TRIAMT/HCTZ 37.5-25 TAB 1 tab(s) orally once a [id number] 3 10:00 AM Triamterene 37.5 mg- hydroCHLOROthiazide 25 mg - PEDS Tablet (MAXZIDE)DOSE = 1 tablet(s) Oral DailyTRIAMT/HCTZ 37.5-25 TAB continued as the inpatient order Triamterene 37.5 mg- hydroCHLOROthiazide 25 mg - PEDS VENLAFAXINE ER 75MG CAP 1 cap(s) orally once a [id number] 3 10:00 AM Venlafaxine Extended Release Capsule, Extended Release (EFFEXOR XR)DOSE = 75 mg Oral DailyVENLAFAXINE ER 75MG CAP continued as the inpatient order Venlafaxine Extended Release XARELTO 20 MG TABLET 1 tab(s) orally once a [id number] 3 10:00 AM Blood in Urine, Monitor for XARELTO 20 MG TABLET continued as the inpatient order Blood in Urine, Monitor for; XARELTO 20 MG TABLET continued as the inpatient order Bleeding, Monitor for; XARELTO 20 MG TABLET continued as the inpatient order Rivaroxaban XARELTO 20 MG TABLET 1 tab(s) orally once a [id number] 3 10:00 AM Bleeding, Monitor for XARELTO 20 MG TABLET continued as the inpatient order Blood in Urine, Monitor for; XARELTO 20 MG TABLET continued as the inpatient order Bleeding, Monitor for; XARELTO 20 MG TABLET continued as the inpatient order Rivaroxaban XARELTO 20 MG TABLET 1 tab(s) orally once a [id number] 3 10:00 AM Rivaroxaban Tablet (XARELTO)DOSE = [...] Every 8 Hours and as Needed Normal [facility] PT/INRon 09-08-2022 PT Coag (PPP) [Time] 63.6 s Critically abnormal 9.8 - 13.4 [facility] Comment on above: Order Comment: PT RE PORTED TO KIARRA VALLES, 09/08/2022 13:56 Called- RB to Dr. Vera Huang at 1354 by , 09/08/2022 13:54 Result Comment: [facility] le repeated. PT REPORTED TO KIARRA VALLES, 09/08/2022 13:56 Performed By: #### C BCDF #### [place] [address] PT, INR 5.4 Critically abnormal 0.9 - 1.1 [facility] Comment on above: Order Comment: PT RE PORTED TO KIARRA VALLES, 09/08/2022 13:56 Called- RB to Dr. Vera Huang at 1354 by , 09/08/2022 13:54 Result Comment: Call ed- RB to Dr. Vera Huang at 1354 by , 09/08/2022 13:54 Performed By: #### C BCDF #### [place] [address] Patient Profile - Adult v2on 09-08-2022 Patient Profile - Adult v2 Profile: Initial Info: How to be AddressedEmily Spoken Language PreferredEnglish (1) Source of Informationpatient Stated Reason for AdmissionI'm sick Primary Contact Name and NumberJerry [phone] Wants Family/Rep Notified of Admissionno Notify PCPdo not notify PCP Informed of Patient Visiting Rightsyes [facility] Was Admitted To in Past 90 Daysnone Employment Statusdisabled Current or Previous Servicenone Patient Belongingsremains with patient Patient Belongings Remaining with Patientcell phone/electronics; vision aids; purse/wallet; dental appliance; top dentures Medications Brought to Hospitalno General Health: Weight in kg116.5 kilogram(s) Weight in qhu104.8 pound(s) Weight Methodactual (measured) Scale Typebed Height [...] From History and Physical 08-Sep-2022 17:47 Normal [facility] Provider Note - ED v3on 06-0 [...] beats. Heart rate is 101 bpm. The W[place] interval is 164 ms. The QRS duration is 96 ms. The QTc is 453 ms. [place] is -15 degrees. Patient was seen and evaluated due to complaints of generalized weakness and fever with inability to get out of bed. She was diagnosed with a urinary tract infection started on broad-spectrum antibiotics due to his concern for sepsis and admitted to the hospital for further IV antibiotics. This chart was dictated with the use of SoNetJob software within the framework of the current [...] day Drug (more content not included)... Normal [facility] RESPIRATORY CULT./SM,LOWERon 09-08-2022 RESPIRATORY CULT./SM,LOWER TEST RESPIRATORY CULT./SM,LOWER WAS CANCELLED, 09/13/2022 04:12 No specimen received. PATIENT: DARYN GUILLERMO LOCATION: [address] BILL#: [id number] : 49 AGE: SEX: F ORDERED BY: ANGELIQUE CLARKE SOURCE: SPUTUM COLLECTED: ANTIBIOTICS AT CAREN.: RECEIVED : SITE: R E S U L T S GRAM STAIN CANCELLED 09/13/22 04:12 RESPIRATORY CULT./SM,LOWER CANCELLED 09/13/22 04:12 [facility] Comment on above: Performed By: #### L ACT #### [place] [address] Risk Screen - Adult Emergenc [facility] 09-08-2022 Risk Screen - Adult Emergency [...] Learning Preferencesverbal instruction Cultural Considerationsnone Developmental Considerationsnone Yazidi Considerationsnone Learning Assessment (Other Learner): Learning Assessment (Other Learner): Other learner availableno Pressure Injury/TB/Substance: Pressure Injury: Do you have a coughno Smoking Statusnever smoker (1) Alcohol Usedenies(1) Drug Usedenies (1) Admission Risk Screen: Significant IndicatorsComplete CAGE: CAGE: Is this an injured patient at a Trauma Center ([facility]/[place] /[place]): no Electronic Signatures: Laurie Talamantes (RN) (Signed 08-Sep-2022 13:04) Authored: Preferred Language, Patient Preferred Pharmacy, Advanced Directives, Family Violence Adult, Learning Assessment (Patient), Learning Assessment (Other Learner), Pressure Injury/TB/Substance, Pressure Injury, CAGE Last Updated: 08-Sep-2022 13:04 by Laurie Talamantes (RN) References: 1. Data Referenced From Provider Note - ED v3 08-Sep-2022 12:38 Normal [facility] Triage - EDon 09-08-2022 Triage - ED Chart Review: PRIMARY ASSESSMENT ABCD Normal Findings: airway open and patent and alert and oriented ARRIVAL INFORMATION Means of Arrival: stretcher Mode of Arrival: ambulance Agency: [facility] Agency Name: karen Arrival From: home Accompanied By: self Language: Spoken Language Preferred: [place] Reading Language Preferred: [place] Present on Arrival: Device Present on Arrival [...] BMI (kg/m2): 46.102 Calculated BSA (m2) 2.46 [place] Coma Scale: Best Eye Response: (E4) spontaneous [...] 08-Sep-2022 13:01 by Laurie Talamantes (RN) Normal [facility] UA MICROSCOPICon 09-08-2022 AMORPHOUS CRYSTAL 2+ /HPF Normal [facility] Comment on above: Performed By: #### C BCDF #### [address] [address] BACTERIA 2+ /HPF Abnormal [facility] Comment on above: Performed By: #### C BCDF #### [address] [address] RBC None Normal 0-5 [facility] Comment on above: Performed By: #### C BCDF #### [address] [address] WBC 64 /HPF Abnormal 0-5 [facility] Comment on above: Performed By: #### C BCDF #### [place] [id number] WBC CLUMPS RARE Normal [facility] Comment on above: Performed By: #### C BCDF #### [address] [address] URINALYSIS WITH CULTURE IF I NDICATEDon 09-08-2022 Appearance (U) HAZY Normal CLEAR [facility] Comment on above: Performed By: #### U ARFX #### [address] [address] Bilirubin Ql (U) Negative Normal NEGATIVE [facility] Comment on above: Performed By: #### U ARFX #### [address] [address] Color (U) Yellow Normal STRAW,YELLOW [facility] Comment on above: Performed By: #### U ARFX #### [address] [address] Glucose Ql (U) Negative Normal NEGATIVE [facility] Comment on above: Performed By: #### U ARFX #### [address] [address] Hemoglobin Ql (U) SMALL(1+) Abnormal NEGATIVE [facility] Comment on above: Performed By: #### U ARFX #### [address] [address] Ketones Ql (U) 5(TRACE) Abnormal NEGATIVE [facility] Comment on above: Performed By: #### U ARFX #### [address] [address] Leukocyte esterase Test strip Ql (U) LARGE(3+) Abnormal NEGATIVE [facility] Comment on above: Performed By: #### U ARFX #### [address] [address] Nitrite Ql (U) Negative Normal NEGATIVE [facility] Comment on above: Performed By: #### U ARFX #### [place] [address] pH (U) 5.0 [pH] Normal 5.0 - 8.0 [facility] Comment on above: Performed By: #### U ARFX #### [place] [id number] Protein Ql (U) Negative Normal NEGATIVE [facility] Comment on above: Performed By: #### U ARFX #### [place] [id number] Specific gravity (U) [Rel density] 1.024 Normal 1.005 - 1.035 [facility] Comment on above: Performed By: #### U ARFX #### [place] [id number] Urobilinogen (U) [Mass/Vol] mg/dL Normal 0.0 - 1.9 [facility] Comment on above: Performed By: #### U ARFX #### [address] [address] URINE CULTURE,BACTERIALon URINE CULTURE,BACTERIAL PATIENT: DARYN GUILLERMO LOCATION: [address]#: [id number] : 49 AGE: SEX: F ORDERED BY: VERA HUANG SOURCE: URINE COLLECTED: 09/08/22 14:21 ANTIBIOTICS AT CAREN.: RECEIVED : 09/09/22 00:26 SITE: R E S U L T S URINE CULTURE,BACTERIAL FINAL 09/10/22 07:56 NO SIGNIFICANT GROWTH. Normal [facility] Comment on above: Performed By: #### C BCDF #### [facility] [address] [place] [address] US RENAL BILATon 09-08-2022 US RENAL BILAT Patient Name: DARYN GUILLERMO STUDY: US RENAL BILAT; 09/08/2022 6:46 pm INDICATION: UTI . COMPARISON: Renal ultrasound of 12/08/2019 and a three-phase CT scan of the kidneys done on 01/05/2020. ACCESSION NUMBER(S): [id number] ORDERING CLINICIAN: ANGELIQUE CLARKE TECHNIQUE: Multiple images [...] palliative care. 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 . She is realizing [...] and uses bedpan. Plans to go to [facility] and slide over. Has a walker but uses a wheelchair Hyperlipidemia - with DM treating this with Crestor. Good this time Lymphedema of leg - exercises have really helped to get this down. She has not been needing the compression wraps. Feels like (more content not included)... Normal [employer] Tobacco Screening.on 023 Adult depression screening assessment Yes [facility] Phone: Adult depression screening assessment No [facility] Phone: Fall risk assessment a) No falls within the last year [facility] Phone: Tobacco use status [facility] b) No [facility] Work Phone: Hemoglobin A1Con 06-01-2022 Glucose [Mass/Vol] 183 mg/dL [facility] Work Phone: HbA1c (Bld) [Mass fraction] 8.0 % Abnormal [facility] Phone: Comment on above: Diagnosis of Diabete s-Adults Non-Diabetic: < or = 5.6% Increased risk for developing diabetes: 5.7-6.4% Diagnostic of diabetes: > or = 6.5%. Monitoring of Diabetes Age (y) Therapeutic Goal (%) Adults: >18 <7.0 Pediatrics: 13-18 <7.5 7-12 <8.0 0- 6 7.5-8.5 [place] [employer]. Diabetes Care 33(S1), Apr 2009. Laboratory - Chemistry and C hemistry - challengeon 06-01-2022 Anion gap [Moles/Vol] 13 mmol/L 10 - 20 [facility] Work Phone: Calcium [Mass/Vol] 9.8 mg/dL 8.6 - 10.3 [facility] Work Phone: Chloride [Moles/Vol] 98 mmol/L 98 - 107 [facility] Work Phone: [phone] CO2 [Moles/Vol] 29 mmol/L 21 - 32 [facility] Work Phone: [phone] Creatinine [Mass/Vol] 0.86 mg/dL See Below [facility] Work Phone: [phone] Comment on above: Reference Range: 0.5 0 - 1.05 Glucose [Mass/Vol] 191 mg/dL above high threshold 74 - 99 [facility] Work Phone: Potassium [Moles/Vol] 4.7 mmol/L 3.5 - 5.3 [facility] Work Phone: Sodium [Moles/Vol] 135 mmol/L below low threshold 136 - 145 [facility] Work Phone: [phone] Urea nitrogen [Mass/Vol] 24 mg/dL above high threshold 6 - 23 [facility] Work Phone: Magnesium, Serumon 3 Magnesium [Mass/Vol] 1.62 mg/dL See Below [facility] Work Phone: Comment on above: Reference Range: 1.6 0 - 2.40 No Panel Informationon 06-01 71 {mL/min/1.73m2} >90 [facility] Work Phone: [phone] Comment on above: CALCULATIONS OF HANNAH MATED GFR ARE PERFORMED USING THE 2020 CKD-EPI STUDY REFIT EQUATION WITHOUT THE RACE VARIABLE FOR THE IDMS-TRACEABLE CREATININE METHODS.https://jasn.asnjournals.org/content//A SN.1763860078 Vitamin B12, Serumon 023 Cobalamin (Vitamin B12) [Mass/Vol] 539 pg/mL 211 - 911 [facility] Work Phone: [phone] Office Visit (Cardiology)on 05-24-2022 Follow-up visit Diagnoses/Problems Assessed Benign essential hypertension (401.1) (I10) Hyperlipidemia (272.4) (E78.5) Chief Complaint Longstanding persistent atrial fibrillation History of Present Ypmvhrs59-bdgo-ccs female with a medical history of morbid [...] (276.8) (E87.6) Internal hemorrhoid, bleeding (455.2) (K64.8) 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 Normal [employer] Tobacco Screening.on 023 Fall risk assessment a) No falls within the last year [employer] Work Phone: Tobacco use status [facility] b) No [employer] Work Phone: Office Visiton 03-07-2022 Follow-up visit [...] medck History of Present IllnessNo longer has [facility]. She is doing better and able [...] palliative care. 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 . She is realizing [...] Still cannot (more content not included)... Normal [facility] Tobacco Screening.on 022 Fall risk assessment a) No falls within the last year [facility] Work Phone: Tobacco use status [facility] b) No [facility] Work Phone: Hemoglobin A1Con 03-01-2022 Glucose [Mass/Vol] 157 mg/dL [facility] Work Phone: HbA1c (Bld) [Mass fraction] 7.1 % Abnormal [facility] Work Phone: Comment on above: Diagnosis of Diabete s-Adults Non-Diabetic: < or = 5.6% Increased risk for developing diabetes: 5.7-6.4% Diagnostic of diabetes: > or = 6.5%. Monitoring of Diabetes Age (y) Therapeutic Goal (%) Adults: >18 <7.0 Pediatrics: 13-18 <7.5 7-12 <8.0 0- 6 7.5-8.5 [place] [employer]. Diabetes Care 33(S1), Apr 2009. Laboratory - Chemistry and C hemistry - challengeon 03-01-2022 Albumin BCP dye [Mass/Vol] 3.7 g/dL 3.4 - 5.0 [facility] Work Phone: ALP [Catalytic activity/Vol] 122 U/L 33 - 136 [facility] Work Phone: ALT With P-5'-P [Catalytic activity/Vol] 8 U/L 7 - 45 [facility] Work Phone: Comment on above: Patients treated wit h Sulfasalazine may generate falsely decreased results for ALT. Anion gap [Moles/Vol] 11 mmol/L 10 - 20 [facility] Work Phone: AST With P-5'-P [Catalytic activity/Vol] 13 U/L 9 - 39 [facility] Work Phone: Bilirubin [Mass/Vol] 0.4 mg/dL 0.0 - 1.2 [facility] Work Phone: Calcium [Mass/Vol] 9.2 mg/dL 8.6 - 10.3 [facility] Work Phone: Chloride [Moles/Vol] 100 mmol/L 98 - 107 [facility] Work Phone: CO2 [Moles/Vol] 29 mmol/L 21 - 32 [facility] Work Phone: Creatinine [Mass/Vol] 0.83 mg/dL See Below [facility] Work Phone: Comment on above: Reference Range: 0.5 0 - 1.05 Glucose [Mass/Vol] 124 mg/dL above high threshold 74 - 99 [facility] Work Phone: Potassium [Moles/Vol] 4.0 mmol/L 3.5 - 5.3 [facility] Work Phone: Protein [Mass/Vol] 6.9 g/dL 6.4 - 8.2 [facility] Work Phone: Sodium [Moles/Vol] 136 mmol/L 136 - 145 [facility] Work Phone: Urea nitrogen [Mass/Vol] 20 mg/dL 6 - 23 [facility] Work Phone: Laboratory - Hematology and Cell countson 03-01-2022 Erythrocyte distribution width (RBC) [Ratio] 15.0 % above high threshold See Below [facility] Work Phone: Comment on above: Reference Range: 11. 5 - 14.5 Hematocrit (Bld) [Volume fraction] 33.5 % below low threshold See Below [facility] Work Phone: Comment on above: Reference Range: 36. 0 - 46.0 Hemoglobin (Bld) [Mass/Vol] 9.5 g/dL below low threshold See Below [facility] Work Phone: Comment on above: Reference Range: 12. 0 - 16.0 MCHC (RBC) [Mass/Vol] 28.4 g/dL below low threshold See Below [facility] Work Phone: Comment on above: Reference Range: 32. 0 - 36.0 MCV (RBC) [Entitic vol] 76 fL below low threshold 80 - 100 [facility] Work Phone: Platelets (Bld) [#/Vol] 309 10*3/uL 150 - 450 [facility] Work Phone: RBC (Bld) [#/Vol] 4.43 {x10E12/L} See Below [facility] Work Phone: Comment on above: Reference Range: 4.0 0 - 5.20 WBC (Bld) [#/Vol] 12.6 10*3/uL above high threshold 4.4 - 11.3 [facility] Work Phone: Lipid Panelon 03-01-2022 Cholesterol [Mass/Vol] 132 mg/dL 0 - 199 [facility] Work Phone: Comment on above: [...] dosing. Cholesterol in HDL [Mass/Vol] 45.0 [facility] Comment on above: . AGE VERY LOW LOW N ORMAL HIGH 0-19 Y < 35 < 40 40-45 ---- 20-24 Y ---- < 40 >45 ---- >24 Y ---- < 40 40-60 >60. Cholesterol in LDL [Mass/Vol] 64 mg/dL 0 - 99 [facility]: Comment on above: . NEAR BORD AGE TESS RABLE OPTIMAL HIGH HIGH VERY HIGH 0-19 Y 0 - 109 --- 110-129 >/= 130 ---- 20-24 Y 0 - 119 --- 120-159 >/= 160 ---- >24 Y 0 - 99 100-129 130-159 160-189 >/=190. Cholesterol.total/Chol esterol in HDL [Mass ratio] 2.9 {ratio} [facility] Work Phone: Comment on above: REF VALUESDESIRABLE < 3.4HIGH RISK > 5.0 Triglyceride [Mass/Vol] 115 mg/dL 0 - 149 [facility] Phone: Comment on above: . AGE DESIRABLE [...] Lipid Panel 23 mg/dL 0 - 40 [facility] Work Phone: Magnesium, Serumon 2 Magnesium [Mass/Vol] 1.50 mg/dL below low threshold See Below [facility] Work Phone: Comment on above: Reference Range: 1.6 0 - 2.40 No Panel Informationon 03-01 74 {mL/min/1.73m2} >90 [facility] Work Phone: Comment on above: CALCULATIONS OF HANNAH MATED GFR ARE PERFORMED USING THE 2020 CKD-EPI STUDY REFIT EQUATION WITHOUT THE RACE VARIABLE FOR THE IDMS-TRACEABLE CREATININE METHODS.https://jasn.asnjournals.org/content/early/A .5400812705 Vitamin D 25-Hydroxyon 03-01 25-hydroxyvitamin D3 [Mass/Vol] 27 ng/mL Abnormal [facility] Work Phone: Comment on above: .DEFICIENCY: < [...] 2, controlled Comprehensive Metabolic Panel; Status:Active; Requested for:[id number]; Hemoglobin A1C; Status:Active; Requested for:[id number]; Hyperlipidemia Lipid Panel; Status:Active; Requested for:[id number]; Medication management Follow-up visit in 3 months Outpatient Follow-up Status: Hold For - Scheduling Requested for: [id number] 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 Asthma - has been good on [...] palliative care. 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 She is realizing that she cannot do [...] and will (more content not included)... Normal [facility] Tobacco Screening.on 022 Fall risk assessment a) No falls within the last year [facility] Work Phone: Tobacco use status CP b) No -[facility] Work Phone: Laboratory - Chemistry and C hemistry - challengeon 12-01-2021 Anion gap [Moles/Vol] 13 mmol/L 10 - 20 [facility] Work Phone: Calcium [Mass/Vol] 9.2 mg/dL 8.6 - 10.3 [facility] Work Phone: Chloride [Moles/Vol] 98 mmol/L 98 - 107 [facility] Work Phone: CO2 [Moles/Vol] 29 mmol/L 21 - 32 [facility] Work Phone: Creatinine [Mass/Vol] 0.88 mg/dL See Below [facility] Work Phone: Comment on above: Reference Range: 0.5 0 - 1.05 Glucose [Mass/Vol] 143 mg/dL above high threshold 74 - 99 [facility] Work Phone: Potassium [Moles/Vol] 4.0 mmol/L 3.5 - 5.3 [facility] Work Phone: Sodium [Moles/Vol] 136 mmol/L 136 - 145 [facility] Work Phone: Urea nitrogen [Mass/Vol] 20 mg/dL 6 - 23 [facility] Work Phone: No Panel Informationon 12-01 69 {mL/min/1.73m2} >90 [facility] Work Phone: Comment on above: CALCULATIONS OF HANNAH MATED GFR ARE PERFORMED USING THE 2020 CKD-EPI STUDY REFIT EQUATION WITHOUT THE RACE VARIABLE FOR THE IDMS-TRACEABLE CREATININE METHODS.https://jasn.asnjournals.org/content//A SN.5200607115 Cholesterol, Serumon 022 Cholesterol [Mass/Vol] 129 mg/dL 0 - 199 [facility] Work Phone: Comment on above: [...] Hemoglobin A1Con 09-14-2021 Glucose [Mass/Vol] 148 mg/dL [facility] Work Phone: HbA1c (Bld) [Mass fraction] 6.8 % Abnormal [facility] Work Phone: Comment on above: Diagnosis of Diabete s-Adults Non-Diabetic: < or = 5.6% Increased risk for developing diabetes: 5.7-6.4% Diagnostic of diabetes: > or = 6.5%. Monitoring of Diabetes Age (y) Therapeutic Goal (%) Adults: >18 <7.0 Pediatrics: 13-18 <7.5 7-12 <8.0 0- 6 7.5-8.5 [place] [employer]. Diabetes Care 33(S1), Apr 2009. Laboratory - Chemistry and C hemistry - challengeon 09-14-2021 Albumin BCP dye [Mass/Vol] 3.7 g/dL 3.4 - 5.0 [facility] Work Phone: ALP [Catalytic activity/Vol] 97 U/L 33 - 136 [facility] Work Phone: ALT With P-5'-P [Catalytic activity/Vol] 13 U/L 7 - 45 [facility] Work Phone: Comment on above: Patients treated wit h Sulfasalazine may generate falsely decreased results for ALT. Anion gap [Moles/Vol] 12 mmol/L 10 - 20 [facility] Work Phone: [phone] AST With P-5'-P [Catalytic activity/Vol] 15 U/L 9 - 39 [facility] Work Phone: Bilirubin [Mass/Vol] 0.3 mg/dL 0.0 - 1.2 [facility] Work Phone: Calcium [Mass/Vol] 9.1 mg/dL 8.6 - 10.3 [facility] Work Phone: Chloride [Moles/Vol] 100 mmol/L 98 - 107 [facility] Work Phone: CO2 [Moles/Vol] 29 mmol/L 21 - 32 [facility] Work Phone: Creatinine [Mass/Vol] 0.81 mg/dL See Below [facility] Work Phone: Comment on above: Reference Range: 0.5 0 - 1.05 Glucose [Mass/Vol] 96 mg/dL 74 - 99 [facility] Work Phone: [phone] Potassium [Moles/Vol] 3.1 mmol/L below low threshold 3.5 - 5.3 [facility] Work Phone: Protein [Mass/Vol] 7.0 g/dL 6.4 - 8.2 [facility] Work Phone: Sodium [Moles/Vol] 138 mmol/L 136 - 145 [facility] Work Phone: Urea nitrogen [Mass/Vol] 24 mg/dL above high threshold 6 - 23 [facility] Work Phone: Laboratory - Drug toxicology on 09-14-2021 Amphetamines Screen Ql (U) Negative NEGATIVE [facility] Work Phone: Comment on above: CUTOFF LEVEL: 500 NG /ML Cross-reactivity has been reported with high concentrations of the following drugs: buproprion, chloroquine, chlorpromazine, ephedrine, mephentermine, fenfluramine, phentermine, phenylpropanolamine, pseudoephedrine, and propranolol. Barbiturates Screen Ql (U) Negative NEGATIVE [facility] Work Phone: Comment on above: CUTOFF LEVEL: 200 NG /ML Benzodiazepines Ql (U) Negative NEGATIVE [facility] Work Phone: Comment on above: CUTOFF LEVEL: 200 NG /ML Benzoylecgonine Screen Ql (U) Negative NEGATIVE [facility] Work Phone: Comment on above: CUTOFF LEVEL: 150 NG /ML Cannabinoids Screen Ql (U) Negative NEGATIVE [facility] Work Phone: Comment on above: CUTOFF LEVEL: 50 NG/ ML Methadone Screen Ql (U) Negative NEGATIVE [facility] Work Phone: Comment on above: CUTOFF LEVEL: 150 NG /ML The metabolite D-dwmmn-fbsvesvzulxhyc (LAAM) is not detected by this method in concentrations that would be found in the urine of patients on LAAM therapy. Opiates Screen Ql (U) Negative NEGATIVE [facility] Work Phone: Comment on above: CUTOFF LEVEL: 300 NG /ML The opiate screen does not detect fentanyl, meperidine, or tramadol. Oxycodone is not consistently detected (refer to Oxycodone Screen, Urine result). oxyCODONE+oxyMORphone Screen Ql (U) Negative NEGATIVE [facility] Work Phone: Comment on above: CUTOFF LEVEL: 100 NG /ML This test will accurately detect both oxycodone and oxymorphone. Phencyclidine Ql (U) Negative NEGATIVE [facility] Work Phone: Comment on above: CUTOFF LEVEL: 25 NG/ ML Cross-reactivity has been reported with dextromethorphan. No Panel Informationon 09-14 76 {mL/min/1.73m2} >90 [facility] Work Phone: Comment on above: CALCULATIONS OF HANNAH MATED GFR ARE PERFORMED USING THE 2020 CKD-EPI STUDY REFIT EQUATION WITHOUT THE RACE VARIABLE FOR THE IDMS-TRACEABLE CREATININE METHODS.https://jasn.asnjournals.org/content//A SN.1649657812 Negative NEGATIVE [facility] Work Phone: Comment on above: CUTOFF LEVEL: 1 NG/M L The performance characteristics of this test have been determined by the individual laboratory site where testing is performed. This test has not been cleared or approved by the FDA; however, the FDA has determined that such clearance is not necessary. SEE BELOW [facility] Work Phone: Comment on above: Drug screen [...] mg/dL above high threshold 0 - 149 [facility]: Comment on above: [...] Diabetes mellitus type 2, controlled (250.00) (E11.9) skilled nursing prescription benzodiazepine use (V58.69) (Z79.899) Neurodermatitis (698.3) [...] Requested for: 01Sep2021 Call Results To: : [phone] if urgent Fax Results To: : [phone] Dr Gilman Lab Frequency: : every 3-6 months Lab Draw Start Date: : 06Sep2021 Specific Labs To Be Drawn : CMP, cholesterol, TG, A1C ,urine drug screen Labs: Must have a SN ordered to have labs drawn : Yes Home Health Aide: Must have ordered SN, PT or ST to have SUPERVISOR VENDOR QUALITY : No Cotton Candy Maker: Must have ordered SN, PT or ST to have PUBLIC HEALTH PROFESSOR : No Occupational Therapy: Must have ordered [...] Assess, Vital Signs, Disease Teaching : Yes Fdc: : Yes Date of Vlyz-lu-Mcwa Encounter: (Must be 90 days prior to start of care, if Telehealth must be Audio/Visual). : 01Sep2021 Homebound Status Reason: : Impaired mobility, instability, balance issues Homebound Status (Patient must be homebound if they have Medicare or commercial insurance, Not required for Medicaid) : Yes Requested Start of Care Date : >48 Hours Provider Impressions [facility] needed to draw blood and other [...] 11:30 AM , for a telehealth visit. [facility] certification F2F History of Present IllnessHas changed [facility] companies and needs new certification. She [...] insurance would like to get someone for [facility]. 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 She is realizing that she cannot do [...] a) No falls within the last year [facility] Work Phone: Tobacco use status CPHS b) No -[facility] Work Phone: Laboratory - Molecular patho logyon 07-25-2021 Noninvasive colorectal cancer DNA and occult blood screening Jd (Stl) [Interp] Negative Negative [facility] Work Phone: Comment on above: [employer] (CLIA #:[id number])[address] [place] [address] MILLA PICHARDO , Clinical Laboratory Medical DirectorNEGATIVE [...] (Sindhu Drake al, N Engl J Med 2014;370(14):9259-3246) The normal value (reference range) for this assay is negative.COLOGUARD RE-SCREENING RECOMMENDATION: Periodic colorectal cancer screening is an important part of preventive healthcare for asymptomatic individuals at average risk for colorectal cancer. Following a negative Cologuard result, the [place] [employer] and U.S. Multi-Society Task Force screening guidelines recommend a Cologuard re-screening interval of 3 years. References: [place] [employer] Guideline for Colorectal Cancer Screening: https://www.cancer.org/cancer/rlhyo-zowtvv-rrvwlr/detection-casi gnosis-staging/acs-recommendations.html.; Quoc DK, Berna SILVA, Gaetano KwokK, Colorectal Cancer Screening: Recommendations for Physicians and Patients from the U.S. Multi-Society Task Force on Colorectal Cancer Screening , Am J Gastroenterology 2017; 112:0668-0418.TEST DESCRIPTION: Composite algorithmic analysis of stool DNA-biomarkers [...] (Sindhu Drake al, N Engl J Med 2014;370(14):0956-9381.) Cologuard may produce a false negative or false positive result (no colorectal cancer or precancerous polyp present at colonoscopy follow up). A negative Cologuard test result does not guarantee the absence of CRC or advanced adenoma (pre-cancer). The current Cologuard screening interval is every 3 years. ([place] [employer] and U.S. Multi-Society Task Force). Cologuard performance data in a 10,000 patient pivotal study using colonoscopy as the reference method can be accessed at the following location: www.Evolita/results. Additional description of the Cologuard test process, warnings and precautions can be found at www.WeOwe.Jigsee. Laboratory - Molecular patho logyon 06-10-2021 Noninvasive colorectal cancer DNA and occult blood screening Jd (Stl) [Interp] Cancelled - Duplicate Order [facility] Work Phone: Office Visiton 06-09-2021 [...] 01:00 PM , for a telehealth visit. [facility] Adult Risk Screening Depression/Suicide Screening: During the [...] no longer. 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 Done with all of that. She is [...] few mon (more content not included)... Normal [facility] Tobacco Screening.on 022 Adult depression screening assessment Yes [facility] Work Phone: Fall risk assessment a) No falls within the last year [facility] Phone: Tobacco use status CPHS b) No [facility] Work Phone: Hemoglobin A1Con 06-07-2021 Glucose [Mass/Vol] 128 mg/dL [facility] Work Phone: HbA1c (Bld) [Mass fraction] 6.1 % Abnormal [facility] Work Phone: Comment on above: Diagnosis of Diabete s-Adults Non-Diabetic: < or = 5.6% Increased risk for developing diabetes: 5.7-6.4% Diagnostic of diabetes: > or = 6.5%. Monitoring of Diabetes Age (y) Therapeutic Goal (%) Adults: >18 <7.0 Pediatrics: 13-18 <7.5 7-12 <8.0 0- 6 7.5-8.5 [place] [employer]. Diabetes Care 33(S1), Apr 2009. Laboratory - Chemistry and C hemistry - challengeon 06-07-2021 Albumin BCP dye [Mass/Vol] 3.5 g/dL 3.4 - 5.0 [facility] Work Phone: ALP [Catalytic activity/Vol] 96 U/L 33 - 136 [facility] Work Phone: ALT With P-5'-P [Catalytic activity/Vol] 12 U/L 7 - 45 [facility] Work Phone: Comment on above: Patients treated wit h Sulfasalazine may generate falsely decreased results for ALT. Anion gap [Moles/Vol] 15 mmol/L 10 - 20 [facility] Work Phone: AST With P-5'-P [Catalytic activity/Vol] 17 U/L 9 - 39 [facility] Work Phone: Bilirubin [Mass/Vol] 0.3 mg/dL 0.0 - 1.2 [facility] Work Phone: Calcium [Mass/Vol] 9.3 mg/dL 8.6 - 10.3 [facility] Work Phone: Chloride [Moles/Vol] 97 mmol/L below low threshold 98 - 107 [facility] Work Phone: CO2 [Moles/Vol] 28 mmol/L 21 - 32 [facility] Work Phone: Creatinine [Mass/Vol] 0.99 mg/dL See Below [facility] Work Phone: Comment on above: Reference Range: 0.5 0 - 1.05 Glucose [Mass/Vol] 239 mg/dL above high threshold 74 - 99 [facility] Work Phone: Potassium [Moles/Vol] 4.1 mmol/L 3.5 - 5.3 [facility] Work Phone: Protein [Mass/Vol] 6.7 g/dL 6.4 - 8.2 [facility] Work Phone: [phone] Sodium [Moles/Vol] 136 mmol/L 136 - 145 [facility] Work Phone: Urea nitrogen [Mass/Vol] 22 mg/dL 6 - 23 [facility] Work Phone: Laboratory - Hematology and Cell countson 06-07-2021 Erythrocyte distribution width (RBC) [Ratio] 15.8 % above high threshold See Below [facility] Work Phone: Comment on above: Reference Range: 11. 5 - 14.5 Hematocrit (Bld) [Volume fraction] 35.8 % below low threshold See Below [facility] Work Phone: Comment on above: Reference Range: 36. 0 - 46.0 Hemoglobin (Bld) [Mass/Vol] 11.3 g/dL below low threshold See Below [facility] Work Phone: Comment on above: Reference Range: 12. 0 - 16.0 MCHC (RBC) [Mass/Vol] 31.4 g/dL below low threshold See Below [facility] Work Phone: Comment on above: Reference Range: 32. 0 - 36.0 MCV (RBC) [Entitic vol] 85 fL 80 - 100 [facility] Work Phone: [phone] Platelets (Bld) [#/Vol] 313 10*3/uL 150 - 450 [facility] Work Phone: [phone] RBC (Bld) [#/Vol] 4.23 {x10E12/L} See Below [facility] Work Phone: Comment on above: Reference Range: 4.0 0 - 5.20 WBC (Bld) [#/Vol] 13.8 10*3/uL above high threshold 4.4 - 11.3 [facility] Work Phone: Lipid Panelon 06-07-2021 Cholesterol [Mass/Vol] 193 mg/dL 0 - 199 [facility] Work Phone: Comment on above: [...] dosing. Cholesterol in HDL [Mass/Vol] 45.0 mg/dL [facility] Work Phone: Comment on above: . AGE VERY LOW LOW N ORMAL HIGH 0-19 Y < 35 < 40 40-45 ---- 20-24 Y ---- < 40 >45 ---- >24 Y ---- < 40 40-60 >60. Cholesterol in LDL [Mass/Vol] 108 mg/dL above high threshold 0 - 99 [facility] Work Phone: Comment on above: . NEAR BORD AGE TESS RABLE OPTIMAL HIGH HIGH VERY HIGH 0-19 Y 0 - 109 --- 110-129 >/= 130 ---- 20-24 Y 0 - 119 --- 120-159 >/= 160 ---- >24 Y 0 - 99 100-129 130-159 160-189 >/=190. Cholesterol.total/Chol esterol in HDL [Mass ratio] 4.3 {ratio} [facility] Work Phone: Comment on above: REF VALUESDESIRABLE < 3.4HIGH RISK > 5.0 Triglyceride [Mass/Vol] 198 mg/dL above high threshold 0 - 149 [facility] Work Phone: Comment on above: . AGE [...] Lipid Panel 40 mg/dL 0 - 40 [facility] Work Phone: No Panel Informationon 06-07 60 {mL/min/1.73m2} >90 [facility] Work Phone: Comment on above: CALCULATIONS OF HANNAH MATED GFR ARE PERFORMED USING THE 2020 CKD-EPI STUDY REFIT EQUATION WITHOUT THE RACE VARIABLE FOR THE IDMS-TRACEABLE CREATININE METHODS.https://jasn.asnjournals.org/content//A SN.9684653163 Vitamin B12, Serumon 022 Cobalamin (Vitamin B12) [Mass/Vol] 697 pg/mL 211 - 911 [facility] Work Phone: Vitamin D 25-Hydroxyon 06-07 25-hydroxyvitamin D3 [Mass/Vol] 30 ng/mL [facility] Work Phone: Comment on above: .DEFICIENCY: < 20 NG /MLINSUFFICIENCY: 20-29 NG/MLSUFFICIENCY: 30-100 NG/MLTHIS ASSAY ACCURATELY QUANTIFIES THE SUM OFVITAMIN D3, 25-HYDROXY AND VIT D2,25-HYDROXY. Laboratory - Chemistry and C hemistry - challengeon 02-04-2021 Creatinine (Body fld) [Mass/Vol] 65.0 mg/dL [facility] Work Phone: Comment on above: A urine creatinine r esult >= 20 mg/dL is considered valid without suspicion of dilution. Samples with results below this range will automatically reflex to specific gravity testing to verify specimen integrity. Laboratory - Drug toxicology on 02-04-2021 1-Hydroxymidazolam Confirm (U) [Mass/Vol] <25 Cutoff <25 [facility] Work Phone: 9-Qtodxmgskq-7,5-Dimet hyl-3,3-Diphenylpyrrol idine (EDDP) Confirm (U) [Mass/Vol] <25 Cutoff <25 [facility] Work Phone: Comment on above: The performance [...] (6-EDDIE) Confirm (U) [Mass/Vol] <25 Cutoff <25 [facility] Work Phone: 7-Aminoclonazepam Confirm (U) [Mass/Vol] <25 Cutoff <25 [facility] Work Phone: Alpha hydroxyalprazolam Confirm (U) [Mass/Vol] <25 Cutoff <25 [facility] Work Phone: ALPRAZolam Confirm (U) [Mass/Vol] <25 Cutoff <25 [facility] Work Phone: Amphetamines Screen Ql (U) Negative NEGATIVE [facility] Work Phone: Comment on above: CUTOFF LEVEL: 500 NG /ML Cross-reactivity has been reported with high concentrations of the following drugs: buproprion, chloroquine, chlorpromazine, ephedrine, mephentermine, fenfluramine, phentermine, phenylpropanolamine, pseudoephedrine, and propranolol. Barbiturates Screen Ql (U) Negative NEGATIVE [facility] Work Phone: Comment on above: CUTOFF LEVEL: 200 NG /ML Benzoylecgonine Screen Ql (U) Negative NEGATIVE [facility] Work Phone: Comment on above: CUTOFF LEVEL: 150 NG /ML Cannabinoids Screen Ql (U) Positive Abnormal NEGATIVE [facility] Work Phone: Comment on above: CUTOFF LEVEL: 50 NG/ ML Carboxy tetrahydrocannabinol (U) [Mass/Vol] >500 [facility]: Comment on above: INTERPRETIVE INFORMA TION: THC Metabolite, Urine, QuantitativeMethodology: Quantitative Liquid Chromatography-Tandem Mass SpectrometryPositive cutoff: 15 ng/mLFor medical purposes only; not valid for forensic use.The drug analyte detected in this assay, 9-carboxy THC, is a metabolite of bbmyc-9-ziwkeanygkspcvbbnqvp (THC). Detection of 9-carboxy THC suggests use [...] developed and its performance characteristics determined by [facility]. It has not been cleared or approved by the [place] Food and Drug Administration. This test was performed in a CLIA certified laboratory and is intended for clinical purposes.Performed By: [facility] [place] [id number] Director: Pearl Deng MD [email or web address] Confirm (U) [Mass/Vol] <25 Cutoff <25 [facility] Work Phone: clonazePAM Confirm (U) [Mass/Vol] <25 Cutoff <25 [facility] Work Phone: Codeine Confirm (U) [Mass/Vol] <50 Cutoff <50 [facility] Work Phone: diazePAM Confirm (U) [Mass/Vol] <25 Cutoff <25 [facility] Work Phone: fentaNYL Confirm (U) [Mass/Vol] <2.5 Cutoff<2.5 [facility] Work Phone: HYDROcodone Confirm (U) [Mass/Vol] <25 Cutoff <25 [facility] Work Phone: HYDROmorphone Confirm (U) [Mass/Vol] <25 Cutoff <25 [facility] Work Phone: LORazepam Confirm (U) [Mass/Vol] [...] Oxazepam Confirm (U) [Mass/Vol] <25 Cutoff <25 [facility] Work Phone: oxyCODONE Confirm (U) [Mass/Vol] <25 Cutoff <25 [facility] Work Phone: oxyMORphone Confirm (U) [Mass/Vol] <25 Cutoff <25 [facility] [...] testing. Phencyclidine Ql (U) Negative NEGATIVE [facility] Work Phone: Comment on above: CUTOFF LEVEL: 25 NG/ ML Cross-reactivity has been reported with dextromethorphan. Temazepam Confirm (U) [Mass/Vol] <25 Cutoff <25 [facility] [...] traMADol Confirm (U) [Mass/Vol] <50 Cutoff <50 [facility] Work Phone: Zolpidem (U) [Mass/Vol] <25 Cutoff <25 [facility] Work Phone: No Panel Informationon 02-04 SEE BELOW [facility] Work Phone: Comment on above: Drug screen [...] the laboratory medical directors. <25 Cutoff <25 [facility] Work Phone: Comment on above: The performance [...] more fall s in the last year [facility] Work Phone: Tobacco use status CPHS b) No [facility] Work Phone: Laboratory - Molecular patho logyon 11-05-2020 Noninvasive colorectal cancer DNA and occult blood screening Jd (Stl) [Interp] Cancelled - Duplicate Order [facility] Work Phone: Tobacco Screening.on Fall risk assessment b) One or more fall s in the last year [facility] Work Phone: Tobacco use status CPHS b) No [facility] Work Phone: Tobacco Screening.on 021 Fall risk assessment b) One or more fall s in the last year [facility] Work Phone: Tobacco use status CP b) No [facility] Work Phone: HEMOGLOBIN A1Con 10-21-2020 Glucose [Mass/Vol] 143 mg/dL Normal [facility] Comment on above: Performed By: #### H BA1E #### [facility] [id number] [place] [address] HbA1c (Bld) [Mass fraction] 6.6 % Normal [facility] Comment on above: Result Comment: Diag nosis of Diabetes-Adults Non-Diabetic: < or = 5.6% Increased risk for developing diabetes: 5.7-6.4% Diagnostic of diabetes: > or = 6.5% . Monitoring of Diabetes Age (y) Therapeutic Goal (%) Adults: >18 <7.0 Pediatrics: 13-18 <7.5 7-12 <8.0 0- 6 7.5-8.5 [place] [employer]. Diabetes Care 33(S1), Apr 2009. Performed By: #### H BA1E #### [facility] [address] [place] [address] CBCon 10-20-2020 Erythrocyte distribution width (RBC) [Ratio] 15.2 % High 11.5 - 14.5 [facility] Comment on above: Performed By: #### C BC #### [address] [id number] Hematocrit (Bld) [Volume fraction] 42.4 % Normal 36.0 - 46.0 [facility] Comment on above: Performed By: #### C BC #### [address] [id number] Hemoglobin (Bld) [Mass/Vol] 12.8 g/dL Normal 12.0 - 16.0 [facility] Comment on above: Performed By: #### C BC #### [address] [id number] MCHC (RBC) [Mass/Vol] 30.2 g/dL Low 32.0 - 36.0 [facility] Comment on above: Performed By: #### C BC #### [address] [id number] MCV (RBC) [Entitic vol] 85 fL Normal 80 - 100 [facility] Comment on above: Performed By: #### C BC #### [address] [id number] Platelets (Bld) [#/Vol] 306 10*3/uL Normal 150 - 450 [facility] Comment on above: Performed By: #### C BC #### [address] [id number] RBC 4.97 x10E12/L Normal 4.00 - 5.20 [facility] Comment on above: Performed By: #### C BC #### [address] [id number] WBC (Bld) [#/Vol] 12.9 10*3/uL High 4.4 - 11.3 [facility] Comment on above: Performed By: #### C BC #### [address] [id number] Hemoglobin A1Con 10-20-2020 Glucose [Mass/Vol] 143 mg/dL [facility] Work Phone: HbA1c (Bld) [Mass fraction] 6.6 % [facility] Work Phone: Comment on above: Diagnosis of Diabete s-Adults Non-Diabetic: < or = 5.6% Increased risk for developing diabetes: 5.7-6.4% Diagnostic of diabetes: > or = 6.5%. Monitoring of Diabetes Age (y) Therapeutic Goal (%) Adults: >18 <7.0 Pediatrics: 13-18 <7.5 7-12 <8.0 0- 6 7.5-8.5 [place] [employer]. Diabetes Care 33(S1), Apr 2009. Laboratory - Hematology and Cell countson 10-20-2020 Erythrocyte distribution width (RBC) [Ratio] 15.2 % above high threshold See Below [facility] Work Phone: Comment on above: Reference Range: 11. 5 - 14.5 Hematocrit (Bld) [Volume fraction] 42.4 % See Below [facility] Work Phone: Comment on above: Reference Range: 36. 0 - 46.0 Hemoglobin (Bld) [Mass/Vol] 12.8 g/dL See Below [facility] Work Phone: [phone] Comment on above: Reference Range: 12. 0 - 16.0 MCHC (RBC) [Mass/Vol] 30.2 g/dL below low threshold See Below [facility] Work Phone: Comment on above: Reference Range: 32. 0 - 36.0 MCV (RBC) [Entitic vol] 85 fL 80 - 100 [facility] Work Phone: [phone] Platelets (Bld) [#/Vol] 306 10*3/uL 150 - 450 [facility] Work Phone: [phone] RBC (Bld) [#/Vol] 4.97 {x10E12/L} See Below [facility] Work Phone: [phone] Comment on above: Reference Range: 4.0 0 - 5.20 WBC (Bld) [#/Vol] 12.9 10*3/uL above high threshold 4.4 - 11.3 [facility] Work Phone: MAGNESIUMon 10-20-2020 Magnesium [Mass/Vol] 1.50 mg/dL Low 1.60 - 2.40 [facility] Comment on above: Performed By: #### M G #### [address] [id number] Magnesium, Serumon Magnesium [Mass/Vol] 1.50 mg/dL below low threshold See Below [facility] Work Phone: Comment on above: Reference Range: 1.6 0 - 2.40 RENAL FUNCTION PANELon 10-20 Albumin [Mass/Vol] 4.0 g/dL Normal 3.4 - 5.0 [facility] Comment on above: Performed By: #### R ENAL #### [address] [id number] Anion gap [Moles/Vol] 14 mmol/L Normal 10 - 20 [facility] Comment on above: Performed By: #### R ENAL #### [address] [id number] Calcium [Mass/Vol] 9.4 mg/dL Normal 8.6 - 10.3 [facility] Comment on above: Performed By: #### R ENAL #### [address] [id number] Chloride [Moles/Vol] 98 mmol/L Normal 98 - 107 [facility] Comment on above: Performed By: #### R ENAL #### [address] [id number] Creatinine [Mass/Vol] 0.97 mg/dL Normal 0.50 - 1.05 [facility] Comment on above: Performed By: #### R ENAL #### [address] [id number] GFR- AM. 68 mL/min/1.73m2 Normal >60 [facility] Comment on above: Result Comment: CALC ULATIONS OF ESTIMATED GFR ARE PERFORMED USING THE MDRD STUDY EQUATION FOR THE IDMS-TRACEABLE CREATININE METHODS. CLIN CHEM 2007;53:766-72 Performed By: #### R ENAL #### [address] [id number] GFR-NON AM. 56 mL/min/1.73m2 Abnormal >60 [facility] Comment on above: Performed By: #### R ENAL #### [address] [id number] Glucose [Mass/Vol] 79 mg/dL Normal 74 - 99 [facility] Comment on above: Performed By: #### R ENAL #### [address] [id number] HCO3 (Bld) [Moles/Vol] 30 mmol/L Normal 21 - 32 [facility] Comment on above: Performed By: #### R ENAL #### [address] [id number] Phosphate [Mass/Vol] 3.3 mg/dL Normal 2.5 - 4.9 [facility] Comment on above: Result Comment: The performance characteristics of phosphorus testing in heparinized plasma have been validated by the individual laboratory site where testing is performed. Testing on heparinized plasma is not approved by the FDA; however, such approval is not necessary. Performed By: #### R ENAL #### [address] [id number] Potassium [Moles/Vol] 4.2 mmol/L Normal 3.5 - 5.3 [facility] Comment on above: Performed By: #### R ENAL #### [address] [id number] Sodium [Moles/Vol] 138 mmol/L Normal 136 - 145 [facility] Comment on above: Performed By: #### R ENAL #### [address] [id number] Urea nitrogen [Mass/Vol] 20 mg/dL Normal 6 - 23 [facility] Comment on above: Performed By: #### R ENAL #### [address] [id number] Renal Function Panelon 10-20 Albumin BCP dye [Mass/Vol] 4.0 g/dL 3.4 - 5.0 -[facility] Work Phone: Anion gap [Moles/Vol] 14 mmol/L 10 - 20 [facility] Work Phone: Calcium [Mass/Vol] 9.4 mg/dL 8.6 - 10.3 [facility] Work Phone: Chloride [Moles/Vol] 98 mmol/L 98 - 107 [facility] Work Phone: CO2 [Moles/Vol] 30 mmol/L 21 - 32 [facility] Work Phone: Creatinine [Mass/Vol] 0.97 mg/dL See Below [facility] Work Phone: [phone] Comment on above: Reference Range: 0.5 0 - 1.05 Glucose [Mass/Vol] 79 mg/dL 74 - 99 [facility] Work Phone: Phosphate [Mass/Vol] 3.3 mg/dL 2.5 - 4.9 [facility] Work Phone: Comment on above: The performance klaus acteristics of phosphorus testing in heparinized plasma have been validated by the individual laboratory site where testing is performed. Testing on heparinized plasma is not approved by the FDA; however, such approval is not necessary. Potassium [Moles/Vol] 4.2 mmol/L 3.5 - 5.3 [facility] Work Phone: [phone] Sodium [Moles/Vol] 138 mmol/L 136 - 145 [facility] Work Phone: [phone] Urea nitrogen [Mass/Vol] 20 mg/dL 6 - 23 [facility] Work Phone: Renal Function Panel 68 {mL/min/1.73m2} >60 [facility] Work Phone: [phone] Comment on above: CALCULATIONS OF HANNAH MATED GFR ARE PERFORMED USING THE MDRD STUDY EQUATION FOR THE IDMS-TRACEABLE CREATININE METHODS. CLIN CHEM 2007;53:766-72 Renal Function Panel 56 {mL/min/1.73m2} Abnormal >60 [facility] Work Phone: [phone] VITAMIN D, 25-HYDROXYon 10-07 VITAMIN D, 25-HYDROXY 20 ng/mL Abnormal [facility] Comment on above: Result Comment: . DEFICIENCY: < 20 NG/ML INSUFFICIENCY: 20-29 NG/ML SUFFICIENCY: 30-100 NG/ML THIS ASSAY ACCURATELY QUANTIFIES THE SUM OF VITAMIN D3, 25-HYDROXY AND VIT D2,25-HYDROXY. Performed By: #### V TDOH #### [address] [id number] Vitamin D 25-Hydroxyon 10-20 25-hydroxyvitamin D3 [Mass/Vol] 20 ng/mL Abnormal [facility] Work Phone: Comment on above: .DEFICIENCY: < 20 NG /MLINSUFFICIENCY: 20-29 NG/MLSUFFICIENCY: 30-100 NG/MLTHIS ASSAY ACCURATELY QUANTIFIES THE SUM OFVITAMIN D3, 25-HYDROXY AND VIT D2,25-HYDROXY. Tobacco Screening.on 021 Fall risk assessment b) One or more fall s in the last year [facility] Work Phone: Tobacco use status CPHS b) No [facility] Work Phone: Metabolic Panelon 12-08-2019 Anion gap [Moles/Vol] 13 mmol/L 10 - 20 [facility] [place] [address] DO Work Phone: Calcium [Mass/Vol] 9.1 mg/dL 8.6 - 10.3 [facility] [place] [address] DO Work Phone: Chloride [Moles/Vol] 99 mmol/L 98 - 107 [facility] [place] [address] DO Work Phone: CO2 [Moles/Vol] 26 mmol/L 21 - 32 [facility] [place] [address] DO Work Phone: Creatinine [Mass/Vol] 1.14 mg/dL above high threshold See Below [facility] [place] [address] DO Work Phone: Comment on above: Reference Range: 0.5 0 - 1.05 Glucose [Mass/Vol] 153 mg/dL above high threshold 74 - 99 [facility] 3 DO Work Phone: Potassium [Moles/Vol] 3.8 mmol/L 3.5 - 5.3 [facility] [place] [address] DO Work Phone: [phone] Sodium [Moles/Vol] 134 mmol/L below low threshold 136 - 145 [facility] [address] [place] Work Phone: Urea nitrogen [Mass/Vol] 32 mg/dL above high threshold 6 - 23 [facility] [address] DO Work Phone: Otheron 12-08-2019 57 {mL/min/1.73m2} Abnormal >60 [facility] [place] [address] DO Work Phone: Comment on above: CALCULATIONS OF HANNAH MATED GFR ARE PERFORMED USING THE MDRD STUDY EQUATION FOR THE IDMS-TRACEABLE CREATININE METHODS. CLIN CHEM 2007;53:766-72 47 {mL/min/1.73m2} Abnormal >60 [facility] [place] [address] DO Work Phone: US Kidney - bilateral Please click on th e link to view the study images Normal -[facility] [address] DO Work Phone: Total Protein, Urine Spoton 12-08-2019 Creatinine (U) [Mass/Vol] 162.0 mg/dL See Below -[place] [address] [place] Work Phone: Comment on above: Reference Range: 20. 0 - 320.0 Protein (U) [Mass/Vol] 44 mg/dL above hig h threshold 5 - 24 -[place] [address] DO Work Phone: Protein/Creatinine (U) [Ratio] 0.27 {mg/mg_Creat} above high threshold See Below -[facility] [address] DO Work Phone: Comment on above: Reference Range: 0.0 0 - 0.17 Uric Acid, Serumon 08-31-202 0 Urate [Mass/Vol] 8.6 mg/dL above high threshold 2.3 - 6.7 [facility] [place] [address] DO Work Phone: Comment on above: Venipuncture immedia tely after or during the administration of Metamizole may lead to falsely low results. Testing should be performed immediately prior to Metamizole dosing. Urinalysison 12-08-2019 Appearance (U) HAZY CLEAR [facility] [place] [address] DO Work Phone: [phone] Color (U) Yellow See Below -[facility] [address] DO Work Phone: [phone] Comment on above: Reference Range: STR AW,YELLOW Glucose Ql (U) Negative NEGATIVE [facility] [place] [address] DO Work Phone: [phone] Ketones Ql (U) Negative NEGATIVE [facility] [place] [address] DO Work Phone: [phone] Leukocyte esterase Test strip Ql (U) TRACE Abnormal NEGATIVE -[facility] [address] DO Work Phone: [phone] pH (U) 5.0 [pH] 5.0 - 8.0 [facility] [place] [address] DO Work Phone: [phone] Protein (U) [Mass/Vol] 30(1+) Abnormal NEGATIVE [facility] [place] [address] DO Work Phone: [phone] RBC (U) [#/Vol] Negative NEGATIVE [facility] [place] [address] DO Work Phone: [phone] Specific gravity (U) [Rel density] 1.018 See Below -[facility] [place] [address] DO Work Phone: Comment on above: Reference Range: 1.0 05 - 1.035 Urinalysis Negative NEGATIVE [facility] 3 DO Work Phone: [phone] Urinalysis <2.0 0.0 - 1.9 [facility] gy-[facility] 3 DO Work Phone: Urinalysis, Microscopicon Urinalysis, Microscopic 3+ Abnormal [facility] 3 DO Work Phone: Urinalysis, Microscopic 4 {/HPF} 0-5 [facility] -[facility] 3 DO Work Phone: Urinalysis, Microscopic 1 {/HPF} 0-5 [facility] -[facility] 3 DO Work Phone: Urinalysis, Microscopic 9 {/HPF} [facility] -[facility] 3 DO Work Phone: Urinalysis, Microscopic 1+ [facility] 3 DO Work Phone: Hemoglobin A1Con 10-30-2019 HbA1c (Bld) [Mass fraction] 128 {MG/DL} [facility] Work Phone: HbA1c (Bld) [Mass fraction] 6.1 % [facility] Work Phone: Comment on above: Diagnosis of Diabete s-Adults Non-Diabetic: < or = 5.6% Increased risk for developing diabetes: 5.7-6.4% Diagnostic of diabetes: > or = 6.5%. Monitoring of Diabetes Age (y) Therapeutic Goal (%) Adults: >18 <7.0 Pediatrics: 13-18 <7.5 7-12 <8.0 0- 6 7.5-8.5 [place] [employer]. Diabetes Care 33(S1), Apr 2009. Metabolic Panelon 10-30-2019 Anion gap [Moles/Vol] 12 mmol/L 10 - 20 [facility] Work Phone: Calcium [Mass/Vol] 9.2 mg/dL 8.6 - 10.3 [facility] Work Phone: Chloride [Moles/Vol] 103 mmol/L 98 - 107 [facility] Services-[facility] Work Phone: CO2 [Moles/Vol] 26 mmol/L 21 - 32 [facility] Work Phone: Creatinine [Mass/Vol] 1.36 mg/dL above high threshold See Below [facility] Work Phone: Comment on above: Reference Range: 0.5 0 - 1.05 Glucose [Mass/Vol] 148 mg/dL above high threshold 74 - 99 [facility] Work Phone: Potassium [Moles/Vol] 3.9 mmol/L 3.5 - 5.3 [facility] Work Phone: Sodium [Moles/Vol] 137 mmol/L 136 - 145 [facility] Work Phone: Urea nitrogen [Mass/Vol] 27 mg/dL above high threshold 6 - 23 [facility] Work Phone: Otheron 10-30-2019 1-Hydroxymidazolam Confirm (U) [Mass/Vol] <25 Cutoff <25 [facility] Work Phone: 7-Ppgkhawlci-1,5-Dimet hyl-3,3-Diphenylpyrrol idine (EDDP) Confirm (U) [Mass/Vol] <25 Cutoff <25 [facility] Work Phone: Comment on above: The [...] Confirm (U) [Mass/Vol] <25 Cutoff <25 [facility] Work Phone: 7-Aminoclonazepam Confirm (U) [Mass/Vol] <25 Cutoff <25 [facility] Work Phone: Alpha hydroxyalprazolam Confirm (U) [Mass/Vol] <25 Cutoff <25 [facility] Work Phone: Alprazolam Confirm (U) [Mass/Vol] <25 Cutoff <25 [facility] Work Phone: Amphetamines Screen Ql (U) Negative NEGATIVE [facility] Work Phone: Comment on above: CUTOFF LEVEL: 500 NG /ML Cross-reactivity has been reported with high concentrations of the following drugs: buproprion, chloroquine, chlorpromazine, ephedrine, mephentermine, fenfluramine, phentermine, phenylpropanolamine, pseudoephedrine, and propranolol. Benzoylecgonine Screen Ql (U) Negative NEGATIVE [facility] Work Phone: Comment on above: CUTOFF LEVEL: 150 NG /ML Chlordiazepoxide Confirm (U) [Mass/Vol] <25 Cutoff <25 [facility] Work Phone: Clonazepam Confirm (U) [Mass/Vol] <25 Cutoff <25 [facility] Work Phone: Codeine Confirm (U) [Mass/Vol] <50 Cutoff <50 [facility] Work Phone: Creatinine (Body fld) [Mass/Vol] 92.6 mg/dL [facility] Work Phone: Comment on above: A urine creatinine r esult >= 20 mg/dL is considered valid without suspicion of dilution. Samples with results below this range will automatically reflex to specific gravity testing to verify specimen integrity. Diazepam Confirm (U) [Mass/Vol] <25 Cutoff <25 [facility] Work Phone: Fentanyl Confirm (U) [Mass/Vol] <2.5 Cutoff<2.5 [facility] Work Phone: Hydrocodone Confirm (U) [Mass/Vol] <25 Cutoff <25 [facility] Work Phone: Hydromorphone Confirm (U) [Mass/Vol] <25 Cutoff <25 [facility] Work Phone: Lorazepam Confirm (U) [Mass/Vol] 696 ng/mL Abnormal Cutoff <25 [facility] Work Phone: Comment on above: Consistent with use of a drug containing lorazepam, such as Ativan. Methadone Confirm (U) [Mass/Vol] <25 Cutoff <25 [facility] Work Phone: Midazolam Confirm (U) [Mass/Vol] <25 Cutoff <25 [facility] Work Phone: Morphine Confirm (U) [Mass/Vol] <50 Cutoff <50 [facility] Work Phone: Nordiazepam Confirm (U) [Mass/Vol] <25 Cutoff <25 [facility] Work Phone: Norfentanyl Confirm (U) [Mass/Vol] <2.5 Cutoff<2.5 [facility] Work Phone: Comment on above: The [...] Confirm (U) [Mass/Vol] <25 Cutoff <25 [facility] Work Phone: Noroxycodone Confirm (U) [Mass/Vol] <25 Cutoff <25 [facility] Work Phone: Nortramadol (U) [Mass/Vol] <50 Cutoff <50 [facility] Work Phone: Comment on above: The [...] Confirm (U) [Mass/Vol] <25 Cutoff <25 [facility] Work Phone: Oxycodone Confirm (U) [Mass/Vol] <25 Cutoff <25 [facility] Work Phone: Oxymorphone Confirm (U) [Mass/Vol] <25 Cutoff <25 [facility] Work Phone: Comment on above: The [...] Confirm (U) [Mass/Vol] <25 Cutoff <25 [facility] Work Phone: Comment on above: The [...] Tramadol Confirm (U) [Mass/Vol] <50 Cutoff <50 [facility] Work Phone: Zolpidem (U) [Mass/Vol] <25 Cutoff <25 [facility] Work Phone: SEE BELOW [facility] Work Phone: Comment on above: Drug screen [...] the laboratory medical directors. <25 Cutoff <25 [facility] Work Phone: Comment on above: The performance [...] clinical laboratory testing. 46 {mL/min/1.73m2} Abnormal >60 [facility] Work Phone: Comment on above: CALCULATIONS OF HANNAH MATED GFR ARE PERFORMED USING THE MDRD STUDY EQUATION FOR THE IDMS-TRACEABLE CREATININE METHODS. CLIN CHEM 2007;53:766-72 38 {mL/min/1.73m2} Abnormal >60 [facility] Work Phone: Urinalysison 10-30-2019 Barbiturates Screen Ql (U) Negative NEGATIVE [facility] Work Phone: Comment on above: CUTOFF LEVEL: 200 NG /ML Cannabinoids Screen Ql (U) Negative NEGATIVE [facility] Work Phone: Comment on above: CUTOFF LEVEL: 50 NG/ ML Phencyclidine Ql (U) Negative NEGATIVE [facility] Work Phone: Comment on above: CUTOFF LEVEL: 25 NG/ ML Cross-reactivity has been reported with dextromethorphan. Vitamin B12, Serumon 020 Cobalamin (Vitamin B12) [Mass/Vol] 307 pg/mL 211 - 911 [facility] Work Phone: Vitamin D 25-Hydroxyon 10-29 Calcidiol [Mass/Vol] 15 ng/mL Abnormal [facility] Work Phone: Comment on above: .DEFICIENCY: < 20 NG /MLINSUFFICIENCY: 20-29 NG/MLSUFFICIENCY: 30-100 NG/MLTHIS ASSAY ACCURATELY QUANTIFIES THE SUM OFVITAMIN D3, 25-HYDROXY AND VIT D2,25-HYDROXY. Mamm - Screening Mammogram w / Tomosynthesison 02-14-2019 MG Breast screening Interpreted by: MERNA JIMENEZ02/16/19 17:42MRN: [id number] Name: DARYN GUILLERMO STUDY:DIGITAL MAMM SCREENING W/ [...] any future breast imaging appointments, please call [phone]). Electronically signed by: CIARAN JIMENEZ 02/16/19 17:42 Normal [facility] Work Phone: MG Breast screening Please click on the link to view the study images Normal [facility] Work Phone: Hematologyon 02-05-2019 Hematocrit (Bld) [Volume fraction] 38.4 % See Below [facility] Work Phone: Comment on above: Reference Range: 36. 0 - 46.0 Hemoglobin (Bld) [Mass/Vol] 12.5 g/dL See Below [facility] Work Phone: Comment on above: Reference Range: 12. 0 - 16.0 MCV (RBC) [Entitic vol] 88 fL 80 - 100 [facility] Work Phone: Platelets (Bld) [#/Vol] 274 {x10E9/L} 150 - 450 [facility] Work Phone: RBC (Bld) [#/Vol] 4.35 {x10E12/L} See Below [facility] Phone: Comment on above: Reference Range: 4.0 0 - 5.20 WBC (Bld) [#/Vol] 12.2 {x10E9/L} above high threshold 4.4 - 11.3 [facility] Work Phone: Hemoglobin A1Con 02-05-2019 HbA1c (Bld) [Mass fraction] 6.2 % [facility] Work Phone: Comment on above: Diagnosis of Diabete s-Adults Non-Diabetic: < or = 5.6% Increased risk for developing diabetes: 5.7-6.4% Diagnostic of diabetes: > or = 6.5%. Monitoring of Diabetes Age (y) Therapeutic Goal (%) Adults: >18 <7.0 Pediatrics: 13-18 <7.5 7-12 <8.0 0- 6 7.5-8.5 [place] [employer]. Diabetes Care 33(S1), Apr 2009. HbA1c (Bld) [Mass fraction] 131 {MG/DL} [facility] Work Phone: Metabolic Panelon 02-05-2019 ALP [Catalytic activity/Vol] 118 U/L 33 - 136 [facility] Work Phone: Anion gap [Moles/Vol] 16 mmol/L 10 - 20 [facility] Work Phone: [phone] Bilirubin [Mass/Vol] 0.5 mg/dL 0.0 - 1.2 [facility] Work Phone: Calcium [Mass/Vol] 9.2 mg/dL 8.6 - 10.3 [facility] Work Phone: Chloride [Moles/Vol] 98 mmol/L 98 - 107 [facility] Work Phone: CO2 [Moles/Vol] 29 mmol/L 21 - 32 [facility] Work Phone: Creatinine [Mass/Vol] 1.05 mg/dL See Below [facility] Work Phone: Comment on above: Reference Range: 0.5 0 - 1.05 Glucose [Mass/Vol] 120 mg/dL above high threshold 74 - 99 [facility] Work Phone: Potassium [Moles/Vol] 4.2 mmol/L 3.5 - 5.3 [facility] Work Phone: Protein [Mass/Vol] 7.2 g/dL 6.4 - 8.2 [facility] Work Phone: Sodium [Moles/Vol] 139 mmol/L 136 - 145 [facility] Work Phone: Urea nitrogen [Mass/Vol] 19 mg/dL 6 - 23 [facility] Work Phone: Otheron 02-05-2019 Albumin BCP dye [Mass/Vol] 4.1 g/dL 3.4 - 5.0 [facility] Work Phone: ALT With P-5'-P [Catalytic activity/Vol] 12 U/L 7 - 45 [facility] Work Phone: Comment on above: Patients treated wit h Sulfasalazine may generate falsely decreased results for ALT. AST With P-5'-P [Catalytic activity/Vol] 18 U/L 9 - 39 [facility] Work Phone: Erythrocyte distribution width (RBC) [Ratio] 15.7 % above high threshold See Below [facility] Work Phone: Comment on above: Reference Range: 11. 5 - 14.5 MCHC (RBC) [Mass/Vol] 32.5 g/dL See Below [facility] Work Phone: Comment on above: Reference Range: 32. 0 - 36.0 63 {mL/min/1.73m2} >60 [facility] Work Phone: Comment on above: CALCULATIONS OF HANNAH MATED GFR ARE PERFORMED USING THE MDRD STUDY EQUATION FOR THE IDMS-TRACEABLE CREATININE METHODS. CLIN CHEM 2007;53:[id number] 52 {mL/min/1.73m2} Abnormal >60 [facility] Work Phone: 4 1 [facility] Work Phone: Comment on above: Age: 73 YearsSex: FC ongestive Heart Failure: NoHypertension: YesStroke/TIA/Thromboembolism: NoVascular Disease: NoDiabetes Mellitus: Yes Moderate-High [facility] Work Phone: Comment on above: Age: 73 YearsSex: FC ongestive Heart Failure: NoHypertension: YesStroke/TIA/Thromboembolism: NoVascular Disease: NoDiabetes Mellitus: Yes 2.2 % [facility] Work Phone: Comment on above: Age: 73 YearsSex: FC ongestive Heart Failure: NoHypertension: YesStroke/TIA/Thromboembolism: NoVascular Disease: NoDiabetes Mellitus: Yes 4.8 % [facility] Work Phone: Comment on above: Age: 73 YearsSex: FC ongestive Heart Failure: NoHypertension: YesStroke/TIA/Thromboembolism: NoVascular Disease: NoDiabetes Mellitus: Yes Thyroidon 02-05-2019 TSH Qn 3.72 {mIU/L} See Below [facility] Work Phone: Comment on above: Reference Range: 0.4 4 - 3.98 TSH testing is performed using different testing methodology at [facility] than at other [facility]. Direct result comparisons should only be made within the same method. CMPon 11-05-2018 Albumin [Mass/Vol] 4.1 g/dL Normal 3.4-5.[address] [facility] Comment on above: Performed By: #### 2 [id number] #### [facility] [employer] [address] [place] [address] Albumin/Globulin [Mass ratio] 1.1 {ratio} Normal 1.1-1.9 [facility] Comment on above: Performed By: #### 2 [id number] #### [facility] [employer] [address] [place] [address] Alk Phos 113 Int._Unit/L Normal 33-136 [facility] Comment on above: Performed By: #### 2 [id number] #### [facility] [employer] [address] [place] [address] 80107 ALT [Catalytic activity/Vol] 11 Int._Unit/L Normal 7-45 [facility] Comment on above: Performed By: #### 2 [id number] #### [facility] [employer] [address] [place] [address] 22052 Anion gap [Moles/Vol] 17 mmol/L Normal 10-20 [facility] Comment on above: Performed By: #### 2 [id number] #### [facility] [employer] [address] [place], [place] [id number] AST [Catalytic activity/Vol] 15 Int._Unit/L Normal 9-39 [facility] Comment on above: Performed By: #### 2 [id number] #### [facility] [employer] [address] [place] [address] Bili Total 0.55 mg/dL Normal 0.00-1.20 [facility] Comment on above: Performed By: #### 2 [id number] #### [facility] [employer] [address] [place] [address] 86052 Calcium [Mass/Vol] 9.7 mg/dL Normal 8.6-10.[address] [facility] Comment on above: Performed By: #### 2 [id number] #### [facility] [employer] [address] [place] [address] 31310 Chloride [Moles/Vol] 97 mmol/L Low 98-107 [facility] Comment on above: Performed By: #### 2 [id number] #### [facility] [employer] [address] [place] [address] 44681 CO2 [Moles/Vol] 28.0 mmol/L Normal 21.0-32.0 [facility] Comment on above: Performed By: #### 2 [id number] #### [facility] [employer] [address] [place] [address] 96842 Creatinine [Mass/Vol] 1.3 mg/dL High 0.5-1.1 [facility] Comment on above: Performed By: #### 2 [id number] #### [facility] [employer] [address] [place] [address] 76519 Globulin (S) [Mass/Vol] 4.0 g/dL Normal 2.0-4.0 [facility] Comment on above: Performed By: #### 2 [id number] #### [facility] [employer] [address] [place] [address] 04395 Glucose [Mass/Vol] 133 mg/dL High 70-[address] [facility] Comment on above: Performed By: #### 2 [id number] #### [facility] [employer] [address] [place] [address] 63760 Potassium [Moles/Vol] 3.9 mmol/L Normal 3.5-5.3 [facility] Comment on above: Performed By: #### 2 [id number] #### [facility] [employer] [address] [place] [address] 81695 Protein [Mass/Vol] 7.7 g/dL Normal 6.4-8.[address] [facility] Comment on above: Performed By: #### 2 [id number] #### [facility] [employer] [address] [place] [address] Sodium [Moles/Vol] 138 mmol/L Normal 136-[address] [facility] Comment on above: Performed By: #### 2 [id number] #### [facility] [employer] [address] [place] [address] 24418 Urea nitrogen [Mass/Vol] 18 mg/dL Normal 6-23 [facility] Comment on above: Performed By: #### 2 [id number] #### [facility] [employer] [address] [place] [address] 33795 Urea nitrogen/Creatinine [Mass ratio] 13.8 ratio Normal 5.4-30.0 [facility] Comment on above: Performed By: #### 2 [id number] #### [facility] [employer] [address] [place] [address] 88416 [id number] 11-05-2018 HbA1c (Bld) [Mass fraction] 6.4 % High 4.0-6.3 [facility] Comment on above: Performed By: #### 3 [id number] #### [facility] Chemistry Manual Subsection [address] [place] [address] 41222 Lipid Profileon 11-05-2018 Cholesterol [Mass/Vol] 222 mg/dL High 0-199 [facility] Comment on above: Result Comment: TOTA L CHOLEESTEROL: <200 NORMAL 200 - 239 BORDERLINE HIGH >240 HIGH Performed By: #### 3 [id number] #### [facility] [employer] [address] [place] [address] 24386 Cholesterol in HDL [Mass/Vol] 46 mg/dL Normal 40-60 [facility] Comment on above: Performed By: #### 3 [id number] #### [facility] [employer] [address] [place] [address] 29400 Cholesterol in LDL [Mass/Vol] 135 mg/dL High 0-130 [facility] Comment on above: Result Comment: <100 OPTIMAL 100-129 NEAR / ABOVE OPTIMAL 130-159 BORDERLINE HIGH 160-189 HIGH >190 VERY HIGH CALC LDL NOT VALID WHEN TRIGLYCERIDE IS >400 MG/DL Performed By: #### 3 [id number] #### [facility] [employer] [address] [place] [address] 07728 Cholesterol in VLDL [Mass/Vol] 41 mg/dL High 0-40 [facility] Comment on above: Performed By: #### 3 [id number] #### [facility] [employer] [address] [place] [address] Triglyceride [Mass/Vol] 205 mg/dL High 0-149 [facility] Comment on above: Result Comment: AGE DESIRABLE BORDERLINE HIGH 91 D - 9 Y 0 - 74 75 - 99 > 100 10 - 19 Y 0 - 89 90 - 129 > 130 20 -24 Y 0 - 114 115 - 149 > 150 > 25 0 - 149 150 - 199 200 - 499 Performed By: #### 3 [id number] #### [facility] [employer] [address] [place] [address] 35023 U Drug Screenon 11-05-2018 U Amph Scr Negative Normal Negative [facility] Comment on above: Performed By: #### 2 [id number] #### [facility] [employer] [address] [place] [address] 41119 U Tara Scr Negative Normal Negative [facility] Comment on above: Performed By: #### 2 [id number] #### [facility] [employer] [address] [place] [address] 05198 U Benzodia Scr Negative Normal Negative [facility] Comment on above: Performed By: #### 2 [id number] #### [facility] [employer] [address] [place] [address] U Cannab Scr Negative Normal Negative [facility] Comment on above: Performed By: #### 2 [id number] #### [facility] [employer] [address] [place] [address] U Cocaine Scr Negative Normal Negative [facility] Comment on above: Performed By: #### 2 [id number] #### [facility] [employer] [address] [place] [address] U Opiate Scr Negative Normal Negative [facility] Comment on above: Performed By: #### 2 [id number] #### [facility] [employer] [address] [place] [address] U PCP Scr Negative Normal Negative [facility] Comment on above: Performed By: #### 2 [id number] #### [facility] [employer] [address] [place] [address] Vitamin D 25 Hydroxyon 11-05 Vitamin D 25 Hydroxy 26.0 ng/mL Low 30.0-100.0 [facility] Comment on above: Performed By: #### 5 [id number] #### [facility] [employer] [address] [place] [address] eGFRon 11-05-2018 GFR/1.73 sq M predicted among non-blacks MDRD (S/P/Bld) [Vol rate/Area] 50 mL/min/1.73 m2 [facility] Comment on above: Order Comment: Order added by Discern Expert. Performed By: #### 1 [id number] #### [facility] [employer] [facility] [place] [address] GFR/1.73 sq M predicted among non-blacks MDRD (S/P/Bld) [Vol rate/Area] 42 mL/min/1.73 m2 [facility] Comment on above: Order Comment: Order added by Discern Expert. Performed By: #### 1 [id number] #### [facility] [employer] [facility] [place] [address] Vital Signs Date Time Vital Sign Value Performing Clinician Facility 11-18-2024 14:00-0400 Body temperature 98 [degF] Dr. April Mullen MD [facility] 11-18-2024 14:00-0400 Diastolic blood pressure 47 mm[Hg] Dr. April Mullen MD [facility] 11-18-2024 14:00-0400 Heart rate 67 /min Dr. April Mullen MD [facility] 11-18-2024 14:00-0400 Respiratory rate 16 /min Dr. April Mullen MD [facility] 11-18-2024 14:00-0400 SaO2% (BldA) [Mass fraction] 97 % Dr. April Mullen MD [facility] 11-18-2024 14:00-0400 Systolic blood pressure 105 mm[Hg] Dr. April Mullen MD [facility] 11-18-2024 06:00-0400 Body mass index (BMI) [Ratio] 40.1 kg/m2 Dr. April Mullen MD [facility] 11-18-2024 06:00-0400 Body weight 112.[address] April Mullen MD [facility] 11-17-2024 14:28-0400 Inhaled oxygen flow rate 2 L/min Dr. April Mullen MD [facility] 11-17-2024 13:50-0400 Inhaled oxygen concentration 4 % Dr. April Mullen MD [facility] 11-17-2024 04:03-0400 Body height 167.[address] April Mullen MD [facility] 11-09-2024 08:00-0400 Diastolic blood pressure 115 mm[Hg] Dr. April Mullen MD [facility] 11-09-2024 08:00-0400 Heart rate 97 /min Dr. April Mullen MD [facility] 11-09-2024 08:00-0400 Respiratory rate 20 /min Dr. April Mullen MD [facility] 11-09-2024 08:00-0400 SaO2% (BldA) [Mass fraction] 93 % Dr. April Mullen MD [facility] 11-09-2024 08:00-0400 Systolic blood pressure 128 mm[Hg] Dr. April Mullen MD [facility] 11-09-2024 06:45-0400 Body temperature 98.6 [degF] Dr. April Mullen MD [facility] 11-09-2024 04:23-0400 Body height 167.[address] April Mullen MD [facility] 11-09-2024 04:23-0400 Body mass index (BMI) [Ratio] 39 kg/m2 Dr. April Mullen MD [facility] 11-09-2024 04:23-0400 Body weight 109.[address] April Mullen MD [facility] 10-28-2024 12:45-0400 Body temperature 98 [degF] Dr. April Mullen MD [facility] 10-28-2024 12:45-0400 Diastolic blood pressure 81 mm[Hg] Dr. April Mullen MD [facility] 10-28-2024 12:45-0400 Heart rate 87 /min Dr. April Mullen MD [facility] 10-28-2024 12:45-0400 Respiratory rate 18 /min Dr. April Mullen MD [facility] 10-28-2024 12:45-0400 SaO2% (BldA) [Mass fraction] 98 % Dr. April Mullen MD [facility] 10-28-2024 12:45-0400 Systolic blood pressure 98 mm[Hg] Dr. April Mullen MD [facility] 10-28-2024 10:53-0400 Body height 167.[address] April Mullen MD [facility] 10-28-2024 10:53-0400 Body mass index (BMI) [Ratio] 33.5 kg/m2 Dr. April Mullen MD [facility] 10-28-2024 10:53-0400 Body weight 94.[address] April Mullen MD [facility] 10-09-2024 14:51-0400 Body height 167.[address] April Mullen MD [facility] 10-09-2024 14:51-0400 Diastolic blood pressure 69 mm[Hg] Dr. April Mullen MD [facility] 10-09-2024 14:51-0400 Heart rate 101 /min Dr. April Mullen MD [facility] 10-09-2024 14:51-0400 Respiratory rate 18 /min Dr. April Mullen MD [facility] 10-09-2024 14:51-0400 Systolic blood pressure 89 mm[Hg] Dr. April Mullen MD [facility] 07-23-2024 08:30-0400 Body mass index (BMI) [Ratio] 32.4 kg/m2 Dr. April Mullen MD [facility] 07-23-2024 08:30-0400 Body weight 91.[address] April Mullen MD [facility] 07-23-2024 08:30-0400 Diastolic blood pressure 79 mm[Hg] Dr. April Mullen MD [facility] 07-23-2024 08:30-0400 Heart rate 76 /min Dr. April Mullen MD [facility] 07-23-2024 08:30-0400 Respiratory rate 18 /min Dr. April Mullen MD [facility] 07-23-2024 08:30-0400 Systolic blood pressure 104 mm[Hg] Dr. April Mullen MD [facility] 07-01-2024 14:10-0400 Body temperature 97.6 [degF] [facility] 07-01-2024 14:10-0400 Diastolic blood pressure 82 mm[Hg] [facility] 07-01-2024 14:10-0400 Heart rate 81 /min [facility] 07-01-2024 14:10-0400 Respiratory rate 16 /min [facility] 07-01-2024 14:10-0400 SaO2% (BldA) [Mass fraction] 99 % [facility] 07-01-2024 14:10-0400 Systolic blood pressure 108 mm[Hg] [facility] 07-01-2024 11:58-0400 Body height 167.64 cm Dominic [facility] 07-01-2024 11:58-0400 Body mass index (BMI) [Ratio] 32.4 kg/m2 [facility] 07-01-2024 11:58-0400 Body weight 91.17 kg Dominic [facility] 04-28-2024 10:59-0500 Body height 167.64 cm Dominic [facility] 04-28-2024 10:59-0500 Body mass index (BMI) [Ratio] 32.4 kg/m2 [facility] 04-28-2024 10:59-0500 Body weight 91.17 kg Dominic Lim [facility] 04-28-2024 10:59-0500 Diastolic blood pressure 70 mm[Hg] [facility] 04-28-2024 10:59-0500 Heart rate 81 /min [facility] 04-28-2024 10:59-0500 Respiratory rate 18 /min [facility] 04-28-2024 10:59-0500 SaO2% (BldA) [Mass fraction] 98 % [facility] 04-28-2024 10:59-0500 Systolic blood pressure 98 mm[Hg] [facility] 03-28-2024 17:47-0500 Body temperature 98.2 [degF] [facility] 03-28-2024 17:47-0500 Diastolic blood pressure 61 mm[Hg] Dominic Lim [facility] 03-28-2024 17:47-0500 Heart rate 90 /min [facility]ic [facility] 03-28-2024 17:47-0500 Respiratory rate 18 /min Dominic Lim [facility] 03-28-2024 17:47-0500 SaO2% (BldA) [Mass fraction] 97 % Dominic Lim [facility] 03-28-2024 17:47-0500 Systolic blood pressure 99 mm[Hg] [facility] 03-28-2024 11:54-0500 Body mass index (BMI) [Ratio] 34.7 kg/m2 [facility] 03-28-2024 11:54-0500 Body weight 97.6 kg Dominic [facility] 02-28-2024 09:59-0500 Body height 167.6 cm Braulio Oneil MD PhD Work Phone: [facility] 02-28-2024 09:59-0500 Body mass index (BMI) [Ratio] 36.32 kg/m2 Braulio Oneil MD PhD Work Phone: [facility] 02-28-2024 09:59-0500 Body temperature 96.6 [degF] Braulio Oneil MD PhD Work Phone: [facility] 02-28-2024 09:59-0500 Body weight 102.06 kg Braulio Oneil MD PhD Work Phone: [facility] 02-28-2024 09:59-0500 Diastolic blood pressure 76 mm[Hg] Braulio Oneil MD PhD Work Phone: [facility] 02-28-2024 09:59-0500 Heart rate 88 /min Braulio Oneil MD PhD Work Phone: [facility] 02-28-2024 09:59-0500 Systolic blood pressure 108 mm[Hg] Braulio Oneil MD PhD Work Phone: [facility] 12-04-2023 10:41-0400 Diastolic blood pressure 72 mm[Hg] Eliza Milks PA-C Work Phone: [facility] 12-04-2023 10:41-0400 Heart rate 83 /min Eliza Milks PA-C Work Phone: [facility] 12-04-2023 10:41-0400 Systolic blood pressure 106 mm[Hg] Eliza Milks PA-C Work Phone: [facility] 11-20-2023 08:04-0400 Body temperature 98.1 [degF] Madhuri Chauhan MD Work Phone: [facility] 11-20-2023 08:04-0400 Diastolic blood pressure 89 mm[Hg] Madhuri Chauhan MD Work Phone: [facility] 11-20-2023 08:04-0400 Heart rate 99 /min Madhuri Chauhan MD Work Phone: [facility] 11-20-2023 08:04-0400 Respiratory rate 18 /min Madhuri Chauhan MD Work Phone: [facility] 11-20-2023 08:04-0400 SaO2% (BldA) [Mass fraction] 96 % Madhuri Chauhan MD Work Phone: [facility] 11-20-2023 08:04-0400 Systolic blood pressure 145 mm[Hg] Madhuri Chauhan MD Work Phone: [phone] [place] [address] 11-14-2023 18:51-0400 Body temperature 37.0 Madhuri Chauhan MD Work Phone: [facility] 11-14-2023 18:51-0400 SaO2% (BldA) [Mass fraction] 99 % Madhuri Chauhan MD Work Phone: [facility] 11-14-2023 18:34-0400 Body temperature 37.0 degrees Celsius [facility] Comment on above: Performed By: #### [id number] #### OMERO KNIGHT ([id number]) [facility] ([facility]) [address] [place] [address] 11-14-2023 18:34-0400 SaO2% (BldA) [Mass fraction] 99 % [facility] Comment on above: Performed By: #### [id number] #### OMERO KNIGHT ([id number]) [facility] ([facility]) [address] [place] [address] 11-14-2023 16:54-0400 Body temperature 37.0 Madhuri Chauhan MD Work Phone: [facility] 11-14-2023 16:54-0400 SaO2% (BldA) [Mass fraction] 99 % Madhuri Chauhan MD Work Phone: [facility] 11-14-2023 16:36-0400 Body temperature 37.0 degrees Celsius [facility] Comment on above: Performed By: #### [id number] #### OMERO KNIGHT ([id number]) [facility] ([facility]) [address] [place] [address] 11-14-2023 16:36-0400 SaO2% (BldA) [Mass fraction] 99 % [facility] Comment on above: Performed By: #### [id number] #### OMERO KNIGHT ([id number]) [facility] ([facility]) [address] [place] [address] 11-09-2023 02:30-0400 Body height 170.2 cm Madhuri Chauhan MD Work Phone: [facility] 11-09-2023 02:30-0400 Body mass index (BMI) [Ratio] 32.66 kg/m2 Madhuri Chauhan MD Work Phone: [facility] 11-09-2023 02:30-0400 Body weight 94.6 kg Madhuri Chauhan MD Work Phone: [facility] 10-15-2023 15:10-0400 Body temperature 97.5 [degF] Flavio Aquino DO Work Phone: [facility] 10-15-2023 15:10-0400 Diastolic blood pressure 83 mm[Hg] Flavio Aquino DO Work Phone: [facility] 10-15-2023 15:10-0400 Heart rate 78 /min Flavio Aquino DO Work Phone: [facility] 10-15-2023 15:10-0400 Respiratory rate 16 /min Flavio Aquino DO Work Phone: [facility] 10-15-2023 15:10-0400 SaO2% (BldA) [Mass fraction] 92 % Flavio Aquino DO Work Phone: [facility] 10-15-2023 15:10-0400 Systolic blood pressure 121 mm[Hg] Flavio Aquino DO Work Phone: [facility] 10-10-2023 01:24-0400 Body height 167.6 cm Flavio Aquino DO Work Phone: [facility] 10-10-2023 01:24-0400 Body mass index (BMI) [Ratio] 40.35 kg/m2 Flavio Aquino DO Work Phone: [facility] 10-10-2023 01:24-0400 Body weight 113.4 kg Flavio Aquino DO Work Phone: [facility] 06-10-2023 19:14-0500 Diastolic blood pressure 63 mm[Hg] Flavio Aquino DO Work Phone: [facility] 06-10-2023 19:14-0500 Heart rate 83 /min Flavio Aquino DO Work Phone: [facility] 06-10-2023 19:14-0500 Respiratory rate 16 /min Flavio Aquino DO Work Phone: [facility] 06-10-2023 19:14-0500 SaO2% (BldA) [Mass fraction] 98 % Flavio Aquino DO Work Phone: [facility] 06-10-2023 19:14-0500 Systolic blood pressure 118 mm[Hg] Flavio Aquino DO Work Phone: [facility] 06-10-2023 17:41-0500 Body height 167.6 cm Flavio Aquino DO Work Phone: [facility] 06-10-2023 17:41-0500 Body mass index (BMI) [Ratio] 40.03 kg/m2 Flavio Aquino DO Work Phone: [facility] 06-10-2023 17:41-0500 Body temperature 97.81 [degF] Flavio Aquino DO Work Phone: [facility] 06-10-2023 17:41-0500 Body weight 112.49 kg Flavio Aquino DO Work Phone: [facility] 10-13-2022 14:22-0400 Body height 167.6 cm Huan Gilman MD Work Phone: [facility] 10-13-2022 14:22-0400 Body mass index (BMI) [Ratio] 40.05 kg/m2 Huan Gilman MD Work Phone: [facility] 10-13-2022 14:22-0400 Body weight 112.49 kg Huan Gilman MD Work Phone: [facility] 06-05-2022 11:04-0500 Body mass index (BMI) [Ratio] Medical Reason Not Done Huan Gilman Work Phone: [facility] Work Phone: 06-05-2022 11:04-0500 Diastolic blood pressure 78 mm[Hg] Huan Gilman Work Phone: [facility] Work Phone: 06-05-2022 11:04-0500 Heart rate 90 /min Huan Gilman Work Phone: [facility] Work Phone: 06-05-2022 11:04-0500 SaO2% (BldA) [Mass fraction] 90 % Huan Manriqueer Work Phone: [facility] Work Phone: 06-05-2022 11:04-0500 Systolic blood pressure 120 mm[Hg] Huan Manriqueer Work Phone: [facility] Work Phone: 05-24-2022 11:32-0500 Diastolic blood pressure 74 mm[Hg] Huan Manriqueer Work Phone: [facility] [address] [facility] Work Phone: 05-24-2022 11:32-0500 Heart rate 104 /min Huan O Gilman Work Phone: [facility] [address] [facility] Work Phone: 05-24-2022 11:32-0500 SaO2% (BldA) [Mass fraction] 97 % Huan O Gilman Work Phone: [facility] [address] [facility] Work Phone: 05-24-2022 11:32-0500 Systolic blood pressure 118 mm[Hg] Huan O Gilman Work Phone: [address] Work Phone: 03-07-2022 14:08-0500 Body mass index (BMI) [Ratio] Patient Reason Not Done Huan O Gilman Work Phone: [facility] Work Phone: 03-07-2022 14:08-0500 Diastolic blood pressure 74 mm[Hg] Huan O Gilman Work Phone: [facility] Work Phone: 03-07-2022 14:08-0500 Heart rate 76 /min Huan O Gilman Work Phone: [facility] Work Phone: 03-07-2022 14:08-0500 Respiratory rate 16 /min Huan O Gilman Work Phone: [facility] Work Phone: 03-07-2022 14:08-0500 Systolic blood pressure 118 mm[Hg] Huan O Gilman Work Phone: [facility] Work Phone: 02-04-2021 16:31-0400 Diastolic blood pressure 78 mm[Hg] Huan O Gilman Work Phone: [facility] Work Phone: 02-04-2021 16:31-0400 Heart rate 72 /min Huan O Gilman Work Phone: [facility] Work Phone: 02-04-2021 16:31-0400 Systolic blood pressure 124 mm[Hg] Huan O Gilman Work Phone: [facility] Work Phone: 11-13-2019 15:22-0400 BMI (Body Mass Index) 51.09 kg/m2 Huan Gilman -[facility] DO Work Phone: 11-13-2019 15:22-0400 Body Temperature 96.9 [degF] Huan Gilman ZY-Rgywibhlym-O [facility] Work Phone: 11-13-2019 15:22-0400 Body weight 139.26 kg Huan Gilman KO-Tuvftdexhu-FA [facility] Work Phone: 11-13-2019 15:22-0400 BP Diastolic 69 mm[Hg] Huan Gilman EC-Fyiamxbexn-YL [facility] Work Phone: Comment on above: Location: RUE; Position: Sitting 11-13-2019 15:22-0400 BP Systolic 116 mm[Hg] Huan Gilman BO-Mhjsedxqrt-IA [facility] Work Phone: Comment on above: Location: RUE; Position: Sitting 11-13-2019 15:22-0400 BSA (Body Surface Area) 2.37 m2 Huan Gilman WD-Nllmskmvmt-LSB [facility] Edwin 3 DO Work Phone: 11-13-2019 15:22-0400 Height 165.1 cm Huan Gilman HV-Buveudctre-KG [facility] Work Phone: 11-13-2019 15:22-0400 Pulse (Heart Rate) 79 /min Huan Gilman [facility] Work Phone: 10-30-2019 12:49-0400 BMI (Body Mass Index) 51.09 kg/m2 [facility] Work Phone: 10-30-2019 12:49-0400 Body Temperature 98.2 [degF] [facility] Work Phone: Comment on above: Method: Oral 10-30-2019 12:49-0400 Body weight 139.26 kg [facility]qar Estrada [facility] Work Phone: 10-30-2019 12:49-0400 BP Diastolic 80 mm[Hg] [facility] [place] Work Phone: Comment on above: Location: LUE; 10-30-2019 12:49-0400 BP Systolic 134 mm[Hg] [facility]strada [facility] [place] Work Phone: Comment on above: Location: LUE; 10-30-2019 12:49-0400 BSA (Body Surface Area) 2.37 m2 [facility] Estrada [facility] [place] Work Phone: 10-30-2019 12:49-0400 Height 165.1 cm Waqar Estrada [facility] Work Phone: 10-30-2019 12:49-0400 Pulse (Heart Rate) 72 /min Waqar Estrada [facility] Work Phone: 02-19-2019 12:06-0500 BMI (Body Mass Index) 50.66 kg/m2 [facility] Work Phone: 02-19-2019 12:06-0500 Body weight 138.08 kg [facility] Work Phone: 02-19-2019 12:06-0500 BP Diastolic 86 mm[Hg] [facility] Work Phone: Comment on above: Location: LUE; 02-19-2019 12:06-0500 BP Systolic 128 mm[Hg] [facility] Work Phone: Comment on above: Location: LUE; 02-19-2019 12:06-0500 BSA (Body Surface Area) 2.36 m2 [facility] [employer] Work Phone: 02-19-2019 12:06-0500 Height 165.1 cm [facility] Work Phone: 02-19-2019 12:06-0500 Pulse (Heart Rate) 84 /min [facility] Work Phone: 02-19-2019 12:06-0500 Pulse Oximetry 96 % [facility] Work Phone: 02-05-2019 12:12-0400 BMI (Body Mass Index) 51.59 kg/m2 Huan Gilman MP-[facility] Work Phone: 02-05-2019 12:12-0400 Body weight 140.62 kg Huan Gilman [facility] Work Phone: 02-05-2019 12:12-0400 BP Diastolic 78 mm[Hg] Huan Manriqueer MP-[facility] Work Phone: Comment on above: Location: LUE; 02-05-2019 12:12-0400 BP Systolic 128 mm[Hg] Huan Gilman MP-[facility] Work Phone: Comment on above: Location: E; 02-05-2019 12:12-0400 BSA (Body Surface Area) 2.38 m2 Huan Manriqueer MP-[facility] Work Phone: 02-05-2019 12:12-0400 Height 165.1 cm Huan Gilman MP-[facility] Work Phone: 02-05-2019 12:12-0400 Pulse (Heart Rate) 72 /min Huan Gilman MP[facility] Work Phone: Encounters Encounter Date Encounter Type Care Provider Facility Start: 11-21-2024 ambulatory April tanner Facility:[facility] Start: 11-18-2024 Non-patient / Non-visit Dr. Cintia Ricks MD -[facility] Work Phone: Start: 11-17-2024 Non-patient / Non-visit Jacinto Masterson nd, DO -[facility] Start: 11-17-2024 ambulatory [facility] Facility: [facility] Start: 11-16-2024 Non-patient / Non-visit Dr. Junior Monge DO [facility] Work Phone: Start: 11-15-2024 Non-patient / Non-visit Dr. Junior Monge DO [facility] Work Phone: Start: 11-14-2024 Non-patient / Non-visit Dr. Junior Monge DO [facility] Work Phone: Start: 11-13-2024 Non-patient / Non-visit Dr. Junior Monge DO [facility] Work Phone: Start: 11-12-2024 Non-patient / Non-visit Dr. Junior Monge DO [facility] Work Phone: Start: 11-11-2024 Non-patient / Non-visit Dr. Junior Monge DO [facility] Work Phone: Start: 11-10-2024 Non-patient / Non-visit Dr. Junior Monge DO [facility] Work Phone: Start: 11-09-2024 ambulatory [facility] Facility: [facility] Start: 11-09-2024 End: 11-18-2024 [...] End: 10-09-2024 Patient encounter procedure Yennifer CASH -[facility] Work Phone: Start: 10-09-2024 End: 10-09-[address] April Mullen MD -[facility] Start: 09-19-2024 End: 09-19-2024 Telephone encounter Laurent Jurado APRN.LINEN ROOM SUPERVISOR Work Phone: [facility] Start: 09-17-2024 End: 09-17-2024 Telephone encounter Laurent Jurado APRN.LINEN ROOM SUPERVISOR Work Phone: [facility] Comment on above: Appointment (Appoint ment) Start: 09-16-2024 ambulatory Delgado Velazco ity:[facility] Start: 09-16-[address] Delgado Amaro MD -[facility] Start: 08-19-2024 ambulatory [facility] Facility:[facility] Start: 08-19-[address] Delgado Amaro MD -[facility] Start: 08-13-2024 ambulatory Henri Pedraza Facility:[facility] Start: 08-13-2024 Non-patient / Non-visit Dr. Henri duron MD -[facility] Start: 08-13-2024 End: 08-13-[address] April Mullen MD [facility] Work Phone: Start: 08-13-2024 End: 08-13-[address] Henri Pedraza MD -Cardiovascular Services Work Phone: Start: 08-13-2024 End: 08-13-2024 ambulatory [facility] Facility:[facility] Start: 07-31-2024 End: 07-31-2024 Patient encounter procedure Mandy MISTRY -[facility] Work Phone: Start: 07-31-2024 End: 07-31-2024 ambulatory April Mullen Facility:[facility] Start: 07-23-2024 End: 07-23-[address] Henri Pedraza MD -[facility] Work Phone: Start: 07-23-2024 End: 07-23-2024 ambulatory April Mullen Facility:[facility] Start: 07-22-2024 End: 07-22-[address] April Mullen MD [facility] Work Phone: Start: 07-22-2024 End: 07-22-[address] Delgado Amaro MD -[facility] Start: 07-22-2024 End: 07-22-2024 ambulatory Delgado LUCERO Facility:[facility] Start: 07-01-2024 ambulatory April Mullen Facility:[facility] Start: 07-01-2024 Non-patient / Non-visit Jacinto Masterson nd DO -[facility] Start: 07-01-2024 End: 07-01-2024 Admission to same day surgery center Jacinto Munoz DO -Endoscopy Work Phone: Start: 07-01-2024 End: 07-01-2024 ambulatory Dominic Lim [facility] Work Phone: Start: 06-24-2024 End: 06-24-2024 ambulatory [facility] Work Phone: Start: 06-24-2024 End: 06-24-[address] Delgado Amaro MD -[facility] Start: 06-24-[address] Delgado Amaro MD -[facility] Start: 06-24-2024 End: 06-24-2024 ambulatory Delgado LUCERO Facility:[facility] Start: 06-04-2024 End: 06-04-2024 ambulatory Dominic Lim [facility] Work Phone: Start: 06-04-2024 End: 06-04-[address] April Mullen MD -[facility] Start: 06-04-[address] April Mullen MD -[facility] Start: 06-03-2024 End: 06-04-2024 ambulatory Dominic Lim [facility] Work Phone: Start: 06-03-2024 End: 06-03-[address] Delgado Amaro MD [facility] Start: 06-03-[address] Delgado Amaro MD [facility] Start: 06-02-2024 End: 06-03-2024 ambulatory Delgado LUCERO Facility:[facility] Start: 06-02-[address] April Mullen MD [facility] Start: 05-27-[address] [facility] Facility:[facility] Start: 05-27-[address] April Mullen MD [facility] Start: 05-12-2024 End: 05-12-2024 ambulatory Dominic Lim [facility] Work Phone: Start: 05-12-2024 End: 05-12-[address] Delgado Amaro MD [facility] Start: 05-12-2024 End: 05-12-2024 ambulatory Delgado LUCERO Facility:[facility] Start: 04-28-2024 End: 04-28-2024 Patient encounter procedure Chrissie CASH -[facility] Work Phone: Start: 04-28-2024 End: 04-28-2024 ambulatory April Gudla Facility[facility] Start: 04-14-[address] [facility] Facility:[facility] Start: 04-14-[address] April Mullen MD [facility] Start: 04-07-2024 End: 04-07-[address] April Mullen MD [facility] Start: 04-07-2024 End: 04-07-[address] [facility] Facility:[facility] Start: 04-03-2024 End: 04-03-[address] April Mullen MD [facility] Start: 04-03-2024 End: 04-03-2024 [facility] Start: 03-28-2024 End: 03-28-2024 Emergency department patient visit Dr. Anthony Greer DO -Emergency Department Work Phone: Start: 03-28-2024 End: 03-28-2024 Departed Referred Dominic Carina [facility] Start: 03-28-2024 End: 03-28-2024 ambulatory Dominic LUCERO Facility:[facility] Start: 02-28-2024 End: 02-28-2024 Postop follow up visit related to original px Braulio Oneil MD PhD Work Phone: [facility] Comment on above: S/P laminectomy (Elizabet santosh Dx) Start: 02-28-2024 End: 02-28-2024 ambulatory BRAULIO ONEIL [facility] Start: 02-27-2024 End: 02-27-2024 Departed Referred Dominic Lim [facility] Start: 02-27-2024 End: 02-27-2024 ambulatory Dominic LUCERO Facility:[facility] Start: 01-29-2024 ambulatory Dominic Lim OLS Facili ty:[facility] Start: 01-28-2024 ambulatory Dominic Lim Facility:[facility] Start: 01-21-2024 ambulatory Dominic Lim Facility:[facility] Start: 01-16-2024 ambulatory April Lowa OLS Facili ty:[facility] Start: 01-15-2024 End: 01-15-2024 Office outpatient visit 25 minutes Megan Osorio DO Work Phone: [facility] Comment on above: Vertebral osteomyeli tis (Multi) (Primary Dx) Start: 01-15-2024 End: 01-15-2024 ambulatory MEGAN Jamison [facility] Start: 01-14-2024 ambulatory Dominic Lim Facility:[facility] Start: 01-09-2024 ambulatory April Gudla OLS Facili ty:[facility] Start: 01-01-2024 ambulatory Natalie Esipnal Facility:[facility] Start: 12-31-2023 End: 01-08-2024 Evaluation and management of inpatient Waqar Berman Facility:[facility] Start: 12-31-2023 ambulatory Waqar Berman Facili ty:[facility] Start: 12-28-2023 ambulatory Dominic Lim Facility:[facility] Start: 12-26-2023 End: 12-26-2023 Office outpatient visit 25 minutes Megan Osorio DO Work Phone: [facility] Comment on above: Vertebral osteomyeli tis (Multi) (Primary Dx); Discitis, unspecified, thoracic region Start: 12-25-2023 ambulatory Dominic Lim Facility:[facility] Start: 12-24-2023 ambulatory April Mullen OLS Facili ty:[facility] Start: 12-19-2023 ambulatory Dominic Lim Facility:[facility] Start: 12-18-2023 ambulatory Dominic Lim Facility:[facility] Start: 12-17-2023 End: 12-18-2023 Emergency department patient visit Dominic Lim Facility:[facility] Start: 12-12-2023 ambulatory Dominic Lim OLS Facili ty:[facility] Start: 12-11-2023 ambulatory Dominic Lim OLS Facili ty:[facility] Start: 12-04-2023 End: 12-04-2023 ambulatory [facility] Amb[facility] Start: 12-04-2023 End: 12-04-2023 Postop follow up visit related to original px [facility] Work Phone: [facility] Comment on above: Spondylosis with mye lopathy, thoracic region (Primary Dx) Start: 12-03-2023 ambulatory Dominic Lim OLS Facili ty:[facility] Start: 11-30-2023 ambulatory April Lowa OLS Facili ty:[facility] Start: 11-28-2023 ambulatory Dominic Lim OLS Facili ty:[facility] Start: 11-27-2023 ambulatory Dominic Lim OLS Facili ty:[facility] Start: 11-26-2023 ambulatory Dominic Lim OLS Facili ty:[facility] Start: 11-21-2023 ambulatory Dominic Lim OLS Facili ty:[facility] Start: 11-09-2023 End: 11-20-2023 Evaluation and management of inpatient [facility] Work Phone: Start: 11-06-2023 End: 11-08-2023 Evaluation and management of inpatient [facility] Start: 10-10-2023 End: 10-15-2023 Evaluation and management of inpatient [facility] Work Phone: Comment on above: Hyponatremia (Primar y Dx); Benign essential hypertension; Iron deficiency anemia secondary to inadequate dietary iron intake; Mixed hyperlipidemia Start: 08-20-2023 End: 08-20-2023 Office outpatient visit 25 minutes Huan Gilman MD Work Phone: 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) Start: 08-20-2023 End: 08-20-2023 ambulatory [facility] Ambulatory Start: 08-03-2023 End: 08-03-2023 ambulatory [facility] Start: 08-02-2023 End: 08-02-2023 ambulatory MARLEEN SIGALA [facility] Start: 08-02-2023 End: 08-02-2023 Telemedicine consultation with patient [facility] Comment on above: Persistent atrial fi brillation (Multi) Start: 07-20-2023 End: 07-20-2023 ambulatory MARLEEN SIGALA [facility] Start: 07-20-2023 End: 07-20-2023 Office outpatient visit 15 minutes Marleen Sigala VISCERA WASHER-LINEN ROOM SUPERVISOR, DNP Work Phone: [facility] Comment on above: Persistent atrial fi brillation (Multi) (Primary Dx) Start: 07-03-2023 End: 07-03-2023 Office outpatient visit 15 minutes Huan Gilman MD Work Phone: [facility] Comment on above: Hematoma of right fo ot (Primary Dx); Anxiety Start: 06-10-2023 End: 06-10-2023 Emergency department patient visit lFavio Atkinson Miles CAMPOS Work Phone: [facility] Comment on above: Contusion of right f oot, initial encounter (Primary Dx); Hematoma of right foot Start: 05-21-2023 End: 05-21-2023 ambulatory [facility] Start: 04-20-2023 End: 04-20-2023 Phys/qhp telephone evaluation 21-30 min Huan Gilman MD Work Phone: [facility] Comment on above: Syndrome of [...] 25 minutes Huan Gilman MD Work Phone: [facility] Comment on above: Morbid obesity with BMI of 40.0-44.9, adult (CMS/HCC) (Primary Dx); Diabetes 1.5, managed as type 2 (CMS/HCC); Anxiety; Benign essential hypertension; Hyperlipidemia, unspecified hyperlipidemia type; Hypokalemia; Hypomagnesemia; Iron deficiency anemia secondary to inadequate dietary iron intake; Vitamin D deficiency; Age-related incipient cataract of both eyes Start: 03-06-2023 End: 03-06-2023 ambulatory HUAN Patton [facility] Start: 12-12-2022 End: 12-12-2022 Office outpatient visit 25 minutes Huan Gilman MD Work Phone: 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, without long-term current use of insulin (CMS/HCC); Asthma, unspecified asthma severity, unspecified whether complicated, unspecified whether persistent; Chronic atrial fibrillation ([facility]/HCC); Benign essential hypertension; Depression, major, single episode, moderate ([facility]/HCC); Diarrhea, unspecified type; Generalized muscle weakness; Hyperlipidemia, unspecified hyperlipidemia type; Lumbar facet arthropathy; Lymphedema of both lower extremities; Morbid obesity with BMI of 40.0-44.9, adult ([facility]); Neurodermatitis; Personal history of colonic polyps; Primary osteoarthritis of both knees; Vitamin D deficiency Start: 10-13-2022 End: 10-13-2022 Phys/qhp telephone evaluation 21-30 min Huan Gilman MD Work Phone: 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 Huan Gilman Facility:[id number] Start: 06-05-2022 Adv care pln tlkd & alt dcsn maker docd Huan Gilman Work Phone: [facility] Work Phone: Start: 06-02-2022 Chart Update Huan Gilman Work Phone: [facility] Work Phone: Start: 06-01-2022 Chart Update Huan Gilman Work Phone: [facility] Work Phone: Start: 05-24-2022 Office outpatient vi sit 25 minutes Huan Gilman Work Phone: [address] Work Phone: Start: 05-11-2022 AUDIT Huan Pooja Gilman Work Phone: [facility] Work Phone: Start: 04-04-2022 AUDIT Huan O Gilman Work Phone: [facility] Work Phone: Start: 03-28-2022 AUDIT Huan O Gilman Work Phone: [facility] Work Phone: Start: 03-07-2022 EPV, Provider: Huan Gilman, Status: Pen, Time: 2:00 PM Huan O Gilman Work Phone: [facility] Work Phone: Start: 03-07-2022 Office outpatient vi sit 25 minutes Huan O Gilman Work Phone: [facility] Work Phone: Start: 03-06-2022 Chart Update Huan Banerjeeyder Work Phone: [facility] Work Phone: Start: 02-10-2022 AUDIT Huan Banerjeeyder Work Phone: [facility] Work Phone: Start: 12-23-2021 AUDIT Huan Banerjeeyder Work Phone: [facility] Work Phone: Start: 12-02-2021 Office outpatient vi sit 25 minutes Huan O Gilman Work Phone: [facility] Work Phone: Start: 12-02-2021 VIRFUVHOME, Provider : Huan Gilman, Status: Pen, Time: 3:30 PM Huan Pooja Gilman Work Phone: [facility] Work Phone: Start: 12-01-2021 Chart Update Huan O Gilman Work Phone: -[facility] Work Phone: Start: 11-14-2021 AUDIT Huan O Gilman Work Phone: -[facility] Work Phone: Start: 10-21-2021 AUDIT Huan O Gilman Work Phone: [facility] Work Phone: Start: 10-14-2021 AUDIT Huan O Gilman Work Phone: -[facility] Work Phone: Start: 10-11-2021 AUDIT Huan O Gilman Work Phone: [facility] Work Phone: Start: 09-29-2021 AUDIT Huan O Gilman Work Phone: [facility] Work Phone: Start: 09-26-2021 AUDIT Huan O Gilman Work Phone: [facility] Work Phone: Start: 09-22-2021 AUDIT Huan O Gilman Work Phone: [facility] Work Phone: Start: 09-01-2021 Office outpatient vi sit 25 minutes Huan O Gilman Work Phone: [facility] Work Phone: Start: 08-25-2021 AUDIT Huan O Gilman Work Phone: [facility] Work Phone: Start: 08-08-2021 AUDIT Huan O Gilman Work Phone: [facility] Work Phone: Start: 08-01-2021 Chart Update Huan O Gilman Work Phone: [facility] Work Phone: Start: 07-21-2021 AUDIT Huan O Gilman Work Phone: [facility] Work Phone: Start: 06-20-2021 AUDIT Huan O Gilman Work Phone: [facility] Work Phone: Start: 06-09-2021 Phys/qhp telephone evaluation 21-30 min Huan O Gilman Work Phone: [facility] Work Phone: Start: 06-09-2021 CHRISTINE, Provider : Huan Gilman, Status: Pen, Time: 1:00 PM Huan O Gilman Work Phone: [facility] Work Phone: Start: 06-08-2021 Chart Update Huan O Gilman Work Phone: [facility] Work Phone: Start: 05-25-2021 Phys/qhp telephone evaluation 21-30 min Huan O Gilman Work Phone: [address] Work Phone: Start: 05-25-2021 CHRISTINE, Provider : Norman Valdivia, Status: Pen, Time: 10:45 AM Huan O Gilman Work Phone: [facility] Work Phone: Start: 05-23-2021 AUDIT Huan O Gilman Work Phone: [facility] Work Phone: Start: 04-22-2021 AUDIT Huan O Gilman Work Phone: [facility] Work Phone: Start: 04-11-2021 AUDIT Huan O Gilman Work Phone: [facility] Work Phone: Start: 03-24-2021 AUDIT Huan O Gilman Work Phone: [facility] Work Phone: Start: 03-07-2021 AUDIT Huan O Gilman Work Phone: [facility] Work Phone: Start: 02-11-2021 Chart Update Huan O Gilman Work Phone: [facility] Work Phone: Start: 02-04-2021 Office outpatient vi sit 25 minutes Huan O Gilman Work Phone: [facility] Work Phone: Start: 01-28-2021 AUDIT Huan O Gilman Work Phone: [facility] Work Phone: Start: 01-25-2021 AUDIT [facility] O [facility]: Start: 12-28-2020 AUDIT Huan O Gilman Work Phone: [facility] Work Phone: Start: 12-20-2020 AUDIT Huan O Gilman Work Phone: [facility] Work Phone: Start: 12-01-2020 AUDIT Huan O Gilman Work Phone: [facility] Work Phone: Start: 11-05-2020 Office outpatient vi sit 25 minutes Huan O Gilman Work Phone: [facility] Work Phone: Start: 11-05-2020 Chart Update Huan O Gilman Work Phone: [facility] [facility] Work Phone: Start: 11-02-2020 CHRISTINE, Provider : Huan Gilman, Status: Pen, Time: 2:30 PM Huan Gilman Work Phone: [facility] Work Phone: Start: 11-01-2020 AUDIT Huan Manriqueer Work Phone: [facility] Work Phone: Start: 10-21-2020 Chart Update Huan Manriqueer Work Phone: [facility] Work Phone: Start: 10-21-2020 Chart Update Huan Manriqueer Work Phone: [facility] Work Phone: Start: 10-13-2020 AUDIT Huan Manriqueer Work Phone: [facility] Work Phone: Start: 09-09-2020 AUDIT Huan Banerjeeyder Work Phone: [facility] Work Phone: Start: 04-05-2020 Patient encounter procedure Huan Gilman [facility] Work Phone: Start: 01-30-2020 Patient encounter procedure Huan Gilman [facility] Work Phone: Start: 12-17-2019 Patient encounter procedure Huan Gilman [facility] Work Phone: Start: 11-13-2019 Patient encounter procedure [facility] Work Phone: Start: 11-12-2019 Patient [facility] Work Phone: Start: 10-30-2019 Patient encounter [facility] Work Phone: Start: 10-20-2019 Patient encounter procedure Waqar Estrada [facility] Work Phone: Start: 10-15-2019 Patient encounter procedure Waqar [facility] Work Phone: Start: 09-22-2019 Patient encounter procedure Waqar [facility] Work Phone: Start: 09-19-2019 Patient encounter procedure Waqar [facility] Work Phone: Start: 09-17-2019 Patient encounter procedure Waqar [facility] Work Phone: Start: 09-15-2019 Patient encounter procedure Waqar [facility] Work Phone: Start: 09-11-2019 Patient encounter procedure Waqar Estrada [facility] Work Phone: Start: 09-10-2019 Patient encounter procedure Waqar [facility] Work Phone: Start: 09-08-2019 Patient encounter procedure Waqar [facility] Work Phone: Start: 09-05-2019 Patient encounter procedure Waqar [facility] Work Phone: Start: 08-25-2019 Patient encounter procedure Waqar Estrada [facility] Work Phone: Start: 08-21-2019 Patient encounter procedure Waqar Estrada [facility] Work Phone: Start: 08-18-2019 Patient encounter procedure Waqar Estrada [facility] Work Phone: Start: 08-05-2019 Patient encounter procedure Huan Gilman [facility] Work Phone: Start: 07-29-2019 Patient encounter procedure Huan Gilman [facility] Work Phone: Start: 07-10-2019 Patient encounter procedure Huan Gilman [facility] Work Phone: Start: 05-20-2019 Patient encounter procedure Huan Gilman [facility] Work Phone: Start: 02-19-2019 Patient encounter procedure [facility] [employer] Work Phone: Start: 02-14-2019 Patient encounter procedure Huan Gilman [facility] Work Phone: Start: 02-05-2019 Patient encounter procedure Huan Gilman [facility] Work Phone: Procedures Date Procedure Procedure Detail [...] blood in stool specimen using immunoassay Dominic LUCREO Start: 11-20-2023 End: 11-20-2023 Renal function panel [...] 11-16-2023 Glucose quantitative blood xcpt reagent strip uR Santos MD Work Phone: Start: 11-16-2023 Renal [...] 11-14-2023 Allograft for spine surgery only morselized Brauilo Oneil MD PhD Work Phone: Start: 11-14-2023 [...] Ru Santos MD Work Phone: Start: 11-11-2023 Renal function panel Danny Deng MD Work Phone: Start: 11-11-2023 Glucose quantitative blood xcpt reagent strip Ru Santos MD Work Phone: Start: 11-11-2023 Glucose quantitative blood xcpt reagent strip Ru Santos MD Work Phone: Start: 11-11-2023 End: 11-11-2023 Renal function panel Danny Deng MD Work Phone: Start: 11-10-2023 Glucose quantitative blood xcpt reagent strip Ru Snatos MD Work Phone: Start: 11-10-2023 Glucose quantitative [...] metabolic panel calcium total Dorota I Wittel [employer] Work Phone: Start: 10-14-2023 Glucose quantitative blood [...] metabolic panel calcium total Dorota I Wittel [employer] Work Phone: Start: 10-13-2023 Glucose quantitative blood [...] metabolic panel calcium total Dorota I Wittel [employer] Work Phone: Start: 10-12-2023 Glucose quantitative blood [...] metabolic panel calcium total Love A Schwemmariam [employer] Work Phone: Start: 10-10-2023 Glucose quantitative blood [...] metabolic panel calcium total Love A Schwemley [employer] Work Phone: Start: 10-10-2023 Culture bacterial quanttative [...] DTaP/Tdap/Td Vaccines (2 - Td or Tdap) [facility] Start: 01-18-2033 [facility] Start: 11-18-2028 Cyanocobalamin vitam in b-[address] Start: 11-18-2028 [facility] Start: 03-06-2028 Cyanocobalamin vitam in b-[address] Start: 09-10-2027 Cyanocobalamin vitam in [address] Start: 12-08-2024 Influenza vaccination Influenz a Vaccine (Season Ended) [facility] Start: 11-18-2024 Thyroid stimulating hormone measurement [facility] Start: 11-18-2024 Patient discharge [facility] Start: 11-16-2024 Referral to gastroenterology service [facility] Start: 11-13-2024 Oxygen therapy [facility] Start: 11-13-2024 Speech therapy assessment [facility] Start: 11-12-2024 End: 11-12-2024 Patient encounter procedure [facility] Comment on above: [facility] Clinic- Initia l Visit - 5M Walk,EKG,KCCQ Start: 11-11-2024 Referral to manager graphic [facility] Start: 11-10-2024 Following clinical pathway protocol [facility] Start: 11-10-2024 [facility] Start: 11-09-2024 Assessment of risk o f venous thromboembolism [facility] Start: 11-09-2024 Care regimes management [facility] Start: 11-09-2024 Elevation of affecte d extremity [facility] Start: 11-09-2024 Inhalation therapy procedure [facility] Start: 11-09-2024 Insertion of cathete r into peripheral vein [facility] Start: 11-09-2024 Measuring intake and output [facility] Start: 11-09-2024 Notification of physician [facility] Start: 11-09-2024 Patient education [facility] Start: 11-09-2024 Providing care accor ding to standard [facility] Start: 11-09-2024 Provision of activit y privileges [facility] Start: 11-09-2024 Referral to occupati onal therapist [facility] Start: 11-09-2024 Referral to service [facility] Start: 11-09-2024 End: 11-09-[address] [facility] Start: 11-09-2024 Verification routine [facility] Start: 11-09-2024 Admission procedure [facility] Start: 11-09-2024 End: 11-09-2024 Hospital admission, emergency, from emergency room, medical nature [facility] Start: 10-28-2024 Endoscopy upper smal l intestine w/biopsy SMALL BOWEL ENDOSCOPY/BIOPSY [facility] Start: 10-28-2024 Patient discharge [facility] Start: 07-25-2024 Screening for malign ant neoplasm of colon [facility] Start: 07-18-2024 End: 07-18-2024 ambulatory [facility] Start: 07-18-2024 End: 07-18-2024 Telemedicine consultation with patient 07/18/2024 1:00 PM EDT Telemedicine [facility] [address] [place] [address] Marleen Sigala, [employer], DNP [address] [place] [address] [facility] Start: 07-01-2024 Colsc flx w/rmvl of tumor polyp lesion snare tq COLONOSCOPY W/LESION REMOVAL [facility] Start: 07-01-2024 Endoscopy upper smal l intestine w/biopsy SMALL BOWEL ENDOSCOPY/BIOPSY [facility] Start: 07-01-2024 Patient discharge [facility] Start: 06-18-2024 Evaluation of diagno stic study results [facility] Start: 04-09-2024 Advance Directive Discussion Advance Directive Discussion [facility] Start: 03-28-2024 [facility] Start: 03-06-2024 Lipid panel [facility] Start: 02-28-2024 End: 02-28-2024 ambulatory [facility] Start: 02-28-2024 End: 02-28-2024 Patient encounter procedure 02/28/2024 10:00 AM EST Office Visit [facility] [address] [place] [address] Braulio Oneil [place] PhD [address] [place], [place] [id number] [facility] Start: 12-27-2023 End: 12-26-2024 PET+CT Bone from skull base to mid-thigh W [id number] IV NM PET CT bone skull base to mid thigh Imaging Routine Vertebral osteomyelitis (Multi) Discitis, unspecified, thoracic region Expected: 12/27/2023 (Approximate), Expires: 12/26/2024 [facility] Service Area Work Phone: Comment on above: Expected: 12/27/2023 (Approximate), Expires: 12/26/2024 Start: 12-26-2023 End: 12-26-2023 ambulatory [facility] Start: 12-26-2023 End: 12-26-2023 Telemedicine consultation with patient 12/26/2023 10:20 AM EDT Telemedicine [facility] [address] [place] [address] [place] [address] [place] [address] [facility] Start: 12-18-2023 End: 12-18-2023 ambulatory [facility] Start: 12-18-2023 End: 12-18-2023 Patient encounter procedure 12/18/2023 1:00 PM EDT Office Visit [facility] [address] [place] [address] Huan Gilman MD [address] [facility], [address] [place] [address] [facility] Start: 12-09-2023 Covid-19 Vaccine ( season) Covid-19 Vaccine () [facility] Start: 12-09-2023 COVID-19 Vaccine ( season) COVID-19 Vaccine ( season) [facility] Start: 12-09-2023 COVID-19 Vaccine () COVID-19 Vaccine () [facility] Start: 12-09-2023 Influenza vaccination [facility] Start: 12-04-2023 End: 11-19-2024 NM Whole body Bone Views [facility] Work Phone: Start: 12-04-2023 End: 12-04-2023 ambulatory [facility] Start: 11-20-2023 End: 08-19-2024 25-hydroxyvitamin D3 [Mass/volume] in Serum or Plasma Vitamin D 25-Hydroxy,Total (for eval of Vitamin D levels) Lab Routine Vitamin D deficiency Expected: 11/20/2023 (Approximate), Expires: 08/19/2024 [facility] Work Phone: Comment on above: Expected: 11/20/2023 (Approximate), Expires: 08/19/2024 Start: 11-20-2023 End: 08-19-2024 Comprehensive metabolic 2000 panel - Serum or Plasma Comprehensive metabolic panel Lab Routine Diabetes 1.5, managed as type 2 (Multi) Expected: 11/20/2023 (Approximate), Expires: 08/19/2024 [facility] Work Phone: Comment on above: Expected: 11/20/2023 (Approximate), Expires: 08/19/2024 Start: 11-20-2023 End: 08-19-2024 Hemoglobin A1c/Hemoglobin.total in Blood Hemoglobin A1C Lab Routine Diabetes 1.5, managed as type 2 (Multi) Expected: 11/20/2023 (Approximate), Expires: 08/19/2024 [facility] Service Area Work Phone: Comment on above: Expected: 11/20/2023 (Approximate), Expires: 08/19/2024 Start: 11-20-2023 End: 08-19-2024 Magnesium [Mass/volume] in Serum or Plasma Magnesium Lab Routine Diabetes 1.5, managed as type 2 (Multi) Expected: 11/20/2023 (Approximate), Expires: 08/19/2024 [facility] Work Phone: Comment on above: Expected: 11/20/2023 (Approximate), Expires: 08/19/2024 Start: 11-16-2023 End: 11-15-2024 Broad Range PCR-Bacteria [facility] Work Phone: Start: 09-12-2023 Screening for malign ant neoplasm of colon [facility] Start: 09-10-2023 Lipid panel Lipid Panel [facility] Start: 08-20-2023 End: 08-20-2023 Telemedicine consultation with patient 08/20/2023 3:30 PM EDT Telemedicine [facility] [address] [place] [id number] Huan Gilman MD [address] [facility] [address] [place] [address] [facility] Start: 08-10-2023 End: 08-10-2023 Patient encounter procedure 08/10/2023 2:30 PM EDT Appointment [address] [phone] [facility] Start: 07-20-2023 End: 07-20-2023 Patient encounter procedure 07/20/2023 2:30 PM EDT Office Visit [facility] [address] [place] [phone] Marleen Sigala APRN-CNP, RAMON [address] [facility], [address] [place] [id number] [facility] Start: 06-06-2023 Hemoglobin A1c measurement [facility] Start: 06-06-2023 Medicare Annual Well ness Visit [facility] Start: 05-25-2023 End: 05-25-2023 Patient encounter procedure 05/25/2023 11:30 AM EST Office Visit [facility] [address] [place] [phone] Marleen Sigala APRN-CNP, RAMON [address] [facility], [facility] [address] [place] [id number] [facility] Start: 05-23-2023 FUV, Provider: Norman Valdivia, Status: Pen, Time: 11:00 AM FUV, Provider: Norman Valdivia, Status: Pen, Time: 11:00 AM Keely Sab[facility] [address] Work Phone: Start: 12-28-2022 RSV High Risk: (Elde rly (60+) or Population) (1 - 1-dose 75+ series) RSV High Risk: (Elderly (60+) or Population) (1 - 1-dose 75+ series) [facility] Start: 12-28-2022 RSV Vaccine (1 - 1-d ose 75+ series) RSV Vaccine (1 - 1-dose 75+ series) [facility] Start: 12-12-2022 End: 12-12-2022 Patient encounter procedure 12/12/2022 1:00 PM EDT Office Visit [facility] [address] [place] [phone] Huan Gilman MD [address] [facility] [address] [place] [address] [facility] Start: 12-10-2022 Hemoglobin A1c measurement Diabetes: Hemoglobin A1C [facility] Start: 12-08-2022 COVID-19 Vaccine ( season) COVID-19 Vaccine ( season) [facility] Start: 12-08-2022 Influenza vaccination Influenza Vacc ine (#1) [facility] Start: 12-08-2022 [facility] Start: 10-13-2022 End: 10-14-2023 CBC panel - Blood by Automated count CBC Lab Routine Iron deficiency anemia secondary to inadequate dietary iron intake Expected: 10/13/2022 (Approximate), Expires: 10/14/2023 [facility] Service Area Work Phone: Comment on above: Expected: 10/13/2022 (Approximate), Expires: 10/14/2023 Start: 10-13-2022 End: 10-20-2022 Clostridioides difficile toxin A+B tcdA+tcdB genes [Presence] in Stool by SEFERINO with probe detection C. 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, without long-term current use of insulin ([facility]) Expected: 10/13/2022 (Approximate), Expires: 10/14/2023 [facility] Work Phone: Comment on above: Expected: 10/13/2022 (Approximate), Expires: 10/14/2023 Start: 06-05-2022 FUV, Provider: Huan Gilman, Status: Pen, Time: 11:00 AM FUV, Provider: Huan Gilman, Status: Pen, Time: 11:00 AM [facility] Work Phone: Start: 05-24-2022 FUV, Provider: Norman Valdivia, Status: Pen, Time: 11:15 AM FUV, Provider: Norman Valdivia, Status: Pen, Time: 11:[address] Work Phone: Start: 03-07-2022 EPV, Provider: Huan Gilman, Status: Pen, Time: 2:00 PM EPV, Provider: Huan Gilman, Status: Pen, Time: 2:00 PM [facility] Work Phone: Start: 03-01-2022 COVID-19 Vaccine (3 - Booster for Rosa series) COVID-19 Vaccine (3 - Booster for Rosa series) [facility] Start: 12-02-2021 VIRFUVHOME, Provider : Huan Gilman, Status: Pen, Time: 3:30 PM VIRFUVHOME, Provider: Huan Gilman, Status: Pen, Time: 3:30 PM [facility] Work Phone: Start: 09-21-2021 Screening for malign ant neoplasm of colon [facility] Start: 09-13-2021 FUV, Provider: Huan Gilman, Status: Pen, Time: 1:00 PM FUV, Provider: Huan Gilman, Status: Pen, Time: 1:00 PM [facility] Work Phone: Start: 09-01-2021 VIRFUVHOME, Provider : Huan Gilman, Status: Pen, Time: 11:30 AM VIRFUVHOME, Provider: Huan Gilman, Status: Pen, Time: 11:30 AM [facility] Work Phone: Start: 06-09-2021 EPV, Provider: Huan Gilman, Status: Pen, Time: 1:00 PM EPV, Provider: Huan Gilman, Status: Pen, Time: 1:00 PM [facility] Work Phone: Start: 05-25-2021 FUV, Provider: Norman Valdivia, Status: Pen, Time: 10:45 AM FUV, Provider: Norman Valdivia, Status: Pen, Time: 10:45 AM [facility] Work Phone: Start: 05-24-2021 FUV, Provider: Rama Villagran, Status: Pen, Time: 11:00 AM FUV, Provider: Rama Villagran, Status: Pen, Time: 11:00 AM [facility] Work Phone: Start: 05-06-2021 EPV, Provider: Huan Gilman, Status: Pen, Time: 4:00 PM EPV, Provider: Huan Gilman, Status: Pen, Time: 4:00 PM [facility] Work Phone: Start: 02-04-2021 VIRFUVIMANE, Provider : Huan Gilman, Status: Pen, Time: 4:30 PM VIRFUVHOME, Provider: Huan Gilman, Status: Pen, Time: 4:30 PM [facility] Work Phone: Start: 11-02-2020 EPV, Provider: Huan Gilman, Status: Pen, Time: 2:30 PM EPV, Provider: Huan Gilman, Status: Pen, Time: 2:30 PM [facility] Work Phone: Start: 02-15-2020 Screening for malign ant neoplasm of breast Mammogram [facility] Start: 02-06-2020 Thyroid stimulating hormone measurement TSH Level [facility] Start: 02-14-2019 Echocardiography Echocardiogram [facility] Work Phone: Start: 02-14-2019 MG Breast screening Mamm - Scr eening Mammogram w/ Tomosynthesis [facility] [employer] Work Phone: Start: 03-04-2014 Zoster Vaccines (2 of 3) Zoste r Vaccines (2 of 3) [facility] Start: 03-04-2014 [facility] Start: 12-28-2012 Screening for osteoporosis Bone Density Screening [facility] Start: 2007 RSV patient s and/or patients aged 60+ years (1 - 1-dose 60+ series) RSV patients and/or patients aged 60+ years (1 - 1-dose 60+ series) [facility] Start: 2007 [facility] Start: 12-28-1997 Pneumococcal Vaccine : 50+ (1 of 1 - PCV) Pneumococcal Vaccine: 50+ (1 of 1 - PCV) [facility] Start: 12-28-1997 Shingrix Vaccine (1 of 2) Shingrix Vaccine (1 of 2) [facility] Start: 12-28-1992 Diabetes Screening Diabetes Screenin g [facility] Start: 12-28-1969 DTaP/Tdap/Td Vaccine s (1 - Tdap) DTaP/Tdap/Td Vaccines (1 - Tdap) [facility] Start: 12-28-1966 Urine microalbumin profile DTaP,Tdap,Td Vaccine (1 - Tdap) [facility] Start: 12-28-1966 Urine screening for protein [facility] Start: 12-28-1965 Anxiety Screening Anxiety Screening [facility] Start: 12-28-1965 Depression Screening Depression Scre ening [facility] Start: 12-28-1965 Hepatitis C screening [facility] Start: 12-28-1957 Diabetic foot examination [facility] Start: 12-28-1957 Glaucoma screening [facility] Start: 12-28-1957 Ophthalmic examinati on and evaluation Diabetes: Retinopathy Screening [facility] Start: 1947 Annual wellness visit Medicare Initial Physical (IPPE) [facility] Start: 1947 Diabetes: Celiac Dis ease Screening Diabetes: Celiac Disease Screening [facility] Start: 1947 Medicare Annual Well ness Visit Medicare Annual Wellness Visit (AWV) [facility] Start: 1947 Screening for malign ant neoplasm of colon [facility] Start: 1947 Screening for osteoporosis [facility] Start: 1947 Thyroid stimulating hormone measurement TSH Level [facility] Start: 1947 [facility] End: 11-15-2023 Art Therapy eval and treat [facility] Work Phone: End: 01-01-2025 C reactive protein [Mass/volume] in Serum or Plasma [facility] Work Phone: End: 12-26-2024 C reactive protein [Mass/volume] in Serum or Plasma C-reactive protein Lab Routine Vertebral osteomyelitis (Multi) Once a week for 3 Occurrences starting 12/27/2023 until 12/26/2024 [facility] Work Phone: Comment on above: Once a week for 3 Oc currences starting 12/27/2023 until 12/26/2024 End: 01-01-2025 CBC W Auto Differential panel - Blood [facility] Work Phone: End: 12-26-2024 CBC W Auto Differential panel - Blood CBC and Auto Differential Lab Routine Vertebral osteomyelitis (Multi) Once a week for 3 Occurrences starting 12/27/2023 until 12/26/2024 [facility] Work Phone: Comment on above: Once a week for 3 Oc currences starting 12/27/2023 until 12/26/2024 CBC W Auto Different ial panel - Blood [facility] End: 01-01-2025 Comprehensive metabolic 2000 panel - Serum or Plasma [facility] Work Phone: End: 12-26-2024 Comprehensive metabolic 2000 panel - Serum or Plasma Comprehensive metabolic panel Lab Routine Vertebral osteomyelitis (Multi) Once a week for 3 Occurrences starting 12/27/2023 until 12/26/2024 [facility] Work Phone: Comment on above: Once a week for 3 Oc currences starting 12/27/2023 until 12/26/2024 ECG 12 lead ECG 12 lead ECG STAT 10/10/2023 1:16 AM EDT [facility] Work Phone: Electrocardiogram, 12-lead PRN ACS symptoms Electrocardiogram, 12-lead PRN ACS symptoms ECG Routine As needed until discontinued starting 10/10/2023 [facility] Work Phone: Comment on above: As needed until disc ontinued starting 10/10/2023 Electrocardiogram, 12-lead PRN ACS symptoms [facility] Work Phone: End: 10-10-2023 Extra Urine Gonzalez Tube Extra Urine Gonzalez Tube Lab Timed Once for 1 Occurrences starting 10/10/2023 until 10/10/2023 [facility] Work Phone: Comment on above: Once for 1 Occurrenc es starting 10/10/2023 until 10/10/2023 Glucose [Mass/volume ] in Serum or Plasma POCT Glucose Point of Care Testing - Docked Device Routine As needed (Lab) until discontinued starting 10/10/2023 [facility] Work Phone: Comment on above: As needed (Lab) unti l discontinued starting 10/10/2023 Glucose [Mass/volume ] in Serum or Plasma [facility] Work Phone: End: 10-14-2023 Hemoglobin.gastrointesti nal [Presence] in Stool --1st specimen Occult Blood, Stool Microbiology Routine Once (Lab) for 1 Occurrences starting 10/14/2023 until 10/14/2023 [facility] Work Phone: Comment on above: Once (Lab) for 1 Occ urrences starting 10/14/2023 until 10/14/2023 Lipid panel Lipid Panel [facility] Work Phone: Comment on above: Approx [id number] End: 11-16-2023 Methicillin resistant Staphylococcus aureus [Presence] in Nose by Organism specific culture [facility] Work Phone: End: 10-15-2023 Music Therapy eval and treat Music Therapy eval and treat Therapeutic Recreation Orderables Routine Until therapy completed for 1 Occurrences starting 10/15/2023 until 10/15/2023 [facility] Work Phone: Comment on above: Until therapy comple kayla for 1 Occurrences starting 10/15/2023 until 10/15/2023 End: 11-19-2023 Music Therapy eval and treat [facility] Work Phone: Patient Education GI Bleeding Ca uses and Tests [facility] Work Phone: Patient referral [facility] Work Phone: End: 11-13-2023 Prepare RBC: 1 Units [facility] Work Phone: End: 11-13-2023 Surgical pathology study [facility] Work Phone: End: 10-10-2023 Urinalysis complete W Reflex Culture panel - Urine Urinalysis with Reflex Culture and Microscopic Lab STAT Once (Lab) for 1 Occurrences starting 10/10/2023 until 10/10/2023 [facility] Area Work Phone: Comment on above: Once (Lab) for 1 Occ urrences starting 10/10/2023 until 10/10/2023 Urinalysis complete W Reflex Culture panel - Urine Urinalysis with Reflex Culture and Microscopic Lab STAT 10/10/2023 3:28 AM EDT [facility] Work Phone: End: 11-22-2023 Vancomycin [Mass/volume] in Serum or Plasma [facility] Work Phone: End: 01-01-2025 Vancomycin [Mass/volume] in Serum or Plasma --trough [facility] Work Phone: End: 12-26-2024 Vancomycin [Mass/volume] in Serum or Plasma --trough Vancomycin, trough Lab Routine Vertebral osteomyelitis (Multi) Once a week for 3 Occurrences starting 12/27/2023 until 12/26/2024 [facility] Work Phone: Comment on above: Once a week for 3 Oc currences starting 12/27/2023 until 12/26/2024 [facility] Work Phone: NEGATED: Highlighted row has been ruled out! Planned Goals not documented -[facility] Work Phone: Immunizations Immunization Date Immunization Notes Care Provider Fa [facility] 01-02-2024 influenza, high dose seasonal, preservative-free Dominic LUCERO [facility] 01-18-2023 influenza, seasonal, injectable Huan Gilman MD Work Phone: [facility] Work Phone: 01-18-2023 Pneumococcal conjuga te vaccine, 20-valent (PREVNAR 20) Huan Gilman MD Work Phone: [facility] Work Phone: 01-18-2023 tetanus toxoid, redu sarah diphtheria toxoid, and acellular pertussis vaccine, adsorbed Huan Gilman MD Work Phone: [facility] 01-18-2023 influenza virus vacc ine, unspecified formulation Flavio Aquino DO Work Phone: [facility] Work Phone: 01-04-2022 influenza, high dose seasonal, preservative-free Huan Gilman Work Phone: [facility] Work Phone: Comment on above: Series: 01-04-2022 Influenza, High-dose Seasonal, Quadrivalent, Preservative Free Huan Gilman MD Work Phone: [facility] Work Phone: 01-04-2022 Pfizer COVID-19 Vac Bivalent 30 MCG/0.3ML Intramuscular Suspension Huan Gilman Work Phone: [facility] Work Phone: 01-04-2022 Pfizer-BioNTech COVI D-19 Vacc 30 MCG/0.3ML Intramuscular Suspension Huan Gilman Work Phone: [facility] Work Phone: Comment on above: Series: 01-04-2022 influenza virus vacc ine, unspecified formulation Huan Gimlan MD Work Phone: [facility] Work Phone: 02-10-2021 Pfizer-BioNTech COVI D-19 Vacc 30 MCG/0.3ML Intramuscular Suspension Huan Gilman Work Phone: [facility] Work Phone: 01-20-2021 Fluzone High-Dose Quadrivalent 0.7 ML Intramuscular Suspension Prefilled Syringe Huan Gilman Work Phone: [facility] Work Phone: 06-11-2020 Rosa COVID-19 Vac cine 0.5 ML Intramuscular Suspension Huan Gilman Work Phone: [facility] Comment on above: Series: 01-30-2020 Fluzone High-Dose Quadrivalent 0.7 ML Intramuscular Suspension Prefilled Syringe Huan Gilman [facility] Work Phone: Comment on above: Series: 01-30-2020 influenza, seasonal, injectable Huan Gilman [facility] Work Phone: 01-10-2019 influenza, high dose seasonal, preservative-free Huan [facility] Comment on above: Series: 12-28-2017 influenza virus vacc ine, unspecified formulation; Translations: [influenza virus vaccine, unspecified formulation] Huan Gilman [facility] Work Phone: Comment on above: Series: 12-28-2017 influenza, high dose seasonal, preservative-free Huan Gilman MD Work Phone: [facility] Work Phone: 01-15-2017 influenza, high dose seasonal, preservative-free Huan Gilman Work Phone: [facility] Work Phone: 05-23-2016 pneumococcal conjuga te vaccine, 13 valent [facility] Comment on above: Series: 02-22-2016 influenza virus vacc ine, unspecified formulation Huan Gilman Work Phone: [facility] Work Phone: 01-29-2016 influenza, high dose seasonal, preservative-free Huan Gilman Work Phone: [facility] Work Phone: 01-07-2014 pneumococcal polysaccharide vaccine, 23 valent Huan Gilman [facility] Work Phone: Comment on above: Series: 01-07-2014 zoster vaccine, live Huan Gilman [facility] Work Phone: Comment on above: Series: 02-25-2009 novel influenza-H1N1 -09, preservative-free, injectable Huan Gilman Work Phone: [facility] Work Phone: 02-15-2007 influenza virus vacc ine, whole virus Huan Gilman Work Phone: [facility] Work Phone: Payers Date Payer Category Payer Medicare [id number] 2023 Self-pay 2023 Medicare (Managed Care) 1.2. [id number] 2023 Unknown 2023 Unknown [id number] 2021 Medicare ANTHEM MEDICARE ANTHEM MEDICARE ADVANTAGE [id number] 2021-Present [address] [place] [address] [id number] .[id number] 2021 Unknown [id number] 1945 Unknown [id number] 2.16.840.1.267568.3.579.2 .1069 1945 Unknown [id number] 2.16.840.1.514026.3.579.2 .1243 1945 Unknown [id number] 2.16.840.1.171457.3.579.2 .1243 1945 Unknown [id number] 2.16.840.1.787970.3.579.2 .1243 1945 Unknown [id number] 2.16.840.1.346050.3.579.2 .1244 1945 Unknown [id number] 2.16.840.1.372277.3.579.2 .1244 1945 Unknown [id number] 2.16.840.1.346438.3.579.2 .1244 1945 Unknown [id number] 2.16.840.1.561927.3.579.2 .1244 1945 Unknown [id number] 2.16.840.1.020096.3.579.2 .1244 1945 Unknown [id number] 2.840.1.880158.3.579.2 .1244 1945 Unknown [id number] 2.840.1.587756.3.579.2 .1243 1945 Unknown [id number] 2.840.1.311202.3.579.2 .1243 1945 Unknown [id number] 2.840.1.549245.3.579.2 .1243 1945 Unknown [id number] 2.16.840.1.116916.3.579.2 .1244 Unknown [id number] 2.16.840.1.961020.3.579.2 .462 Unknown [id number] 2.16840.1.327644.3.579.2 .462 Unknown [id number] 2.16.840.1.132918.3.579.2 .462 Unknown [id number] 2.16.840.1.662267.3.579.2 .462 Unknown [id number] 2.16.840.1.564306.3.579.2 .462 Unknown [id number] 2.16.840.1.984441.3.579.2 .462 Unknown [id number] 2.16.840.1.333923.3.579.2 .462 Unknown [id number] 2.16.840.1.435805.3.579.2 .462 Unknown [id number] 2.16.840.1.274915.3.579.2 .462 Unknown [id number] 2.16.840.1.326164.3.579.2 .462 Unknown [id number] 2.16.840.1.166067.3.579.2 .462 Unknown [id number] 2.16.840.1.809389.3.579.2 .462 Unknown [id number] 2.16.840.1.152318.3.579.2 .462 Unknown [id number] 2.16840.1.813341.3.579.2 .462 Unknown [id number] 2.16840.1.800643.3.579.2 .462 Unknown [id number] 2.840.1.585200.3.579.2 .462 Unknown [id number] 2.840.1.837149.3.579.2 .462 Unknown [id number] 2.840.1.836352.3.579.2 .462 Unknown [id number] 2.16840.1.629000.3.579.2 .462 Unknown [id number] 2.840.1.017638.3.579.2 .462 Unknown [id number] 2.840.1.006475.3.579.2 .462 Unknown [id number] 2.16840.1.709301.3.579.2 .462 Unknown [id number] 2.16.840.1.864564.3.579.2 .462 Unknown [id number] 2.16.840.1.156561.3.579.2 .462 Unknown [id number] 2.16.840.1.505750.3.579.2 .462 Unknown [id number] 2.16.840.1.208935.3.579.2 .462 Unknown [id number] 2.16.840.1.449308.3.579.2 .462 Unknown [id number] 2.16.840.1.823810.3.579.2 .462 Unknown [id number] 2.16.840.1.851415.3.579.2 .462 Unknown [id number] 2.16.840.1.343223.3.579.2 .462 Unknown [id number] 2.16.840.1.485287.3.579.2 .462 Unknown [id number] 2.16.840.1.832681.3.579.2 .462 Unknown [id number] 2.16840.1.042909.3.579.2 .462 Unknown [id number] 2.16840.1.561177.3.579.2 .462 Unknown [id number] 2.16840.1.974253.3.579.2 .462 Unknown [id number] 2.16840.1.501995.3.579.2 .462 Unknown [id number] 2.16840.1.562943.3.579.2 .462 Unknown [id number] 2.16.840.1.765401.3.579.2 .462 Unknown [id number] 2.16840.1.365935.3.579.2 .462 Unknown [id number] 2.16.840.1.529233.3.579.2 .462 Unknown [id number] 2.16.840.1.283963.3.579.2 .462 Unknown [id number] 2.16.840.1.446194.3.579.2 .462 Unknown [id number] 2.16.840.1.129524.3.579.2 .462 Unknown [id number] 2.16.840.1.455407.3.579.2 .462 Unknown [id number] 2.16.840.1.410664.3.579.2 .462 Unknown [id number] 2.16.840.1.175333.3.579.2 .462 Unknown [id number] 2.16.840.1.794465.3.579.2 .462 Unknown [id number] 2.16.840.1.732095.3.579.2 .462 Unknown [id number] 2.16.840.1.135862.3.579.2 .462 Unknown [id number] 2.16.840.1.088464.3.579.2 .462 Unknown [id number] 2.16.840.1.184036.3.579.2 .462 Social History Date Type Detail Facility - - [facility] Work Phone: Start: 10-13-2022 End: 11-16-2023 Never a smoker Never a smoker [facility] Work Phone: Start: 08-31-2022 End: 11-09-2024 Tobacco smoking status NHIS Never smoked tobacco [facility] Work Phone: Start: 08-31-2022 Tobacco use and exposure Smokeless tobacco non-user [facility] Work Phone: Start: 10-13-2022 End: 12-04-2023 Alcohol intake Lifetime non-drinker (finding) [facility] Work Phone: Start: 10-13-2022 End: 11-16-2023 Tobacco use panel [facility] Work Phone: Start: 1945 Sex Assigned At Not on file [facility] Work Phone: Start: 10-03-2022 End: 02-28-2024 Exposure to SARS-CoV-2 (event) Not sure [facility] Start: 04-10-2023 End: 08-02-2023 Exposure to SARS-CoV-2 (event) Unable to assess [facility] How often to you hav e a drink containing alcohol? Never [facility] How many standard drinks containing alcohol do you have on a typical day? Patient does not drink [facility] Work Phone: In the past 12 months, was there a time when you were not able to pay the mortgage or rent on time? No [facility] Start: 06-13-2024 End: 07-15-2024 Sex Female (finding) [facility] Start: 1945 Sex Assigned At Female [facility] Tobacco smoking status VAIS Tobacco smoking consumption unknown [facility] NEGATED: Highlighted row Not [facility] Medical Equipment Procedure Code Equipment Code [...] Assessment Result Facility 11-18-2024 Functional status Bedrest [facility] Work Phone: NEGATED: Highlighted row Functional performance Functional status health issues are not documented Disease [facility] Work Phone: Mental Status Date Assessment Result Facility 11-18-2024 Cognitive function Voice/Name [facility] Work Phone: 10-28-2024 Cognitive function Level Of Cons ciousness Sedated [facility] Work Phone: 10-28-2024 Cognitive function Voice/Name [facility] Work Phone: 07-01-2024 Cognitive function Voice/Name [facility] Work Phone: 03-28-2024 Cognitive function Level Of Cons ciousness Awake;Alert;Appropriate ;Follows Commands [facility] Work Phone: NEGATED: Highlighted row Cognitive function [Interpretation] Cognitive status health issues are not documented Disease [facility] Work Phone: Clinical Notes 02-14-2019 to 11-18-2024 Note Date & Type Note Facility 11-18-2024 Note [facility] 11-18-2024 Consult note [facility] 11-18-2024 Consult note [facility] 11-18-2024 Discharge summary [facility] 11-17-2024 Consult note Note Date/Time November 18, 2024 11:06am [facility] Medical Records Department [address] [place] [address] Anesthesia Postop Eval II 11/17/24 1638 MR#: [id number] Acct: [id number] Name: DARYN GUILLERMO BLANE Rep #:[id number] 4 : 1945 78 From: Jessica Velez CRNA PCP: Dr. Delgado Amaro, DO Status:ADM IN Y Race: C Location: [place] [address] 2-1 Anesthesia Postop Eval I Sum Postop [...] 11/17/24 1638 <Electronically signed by Jessica glass LEVELING MACHINE OPERATOR> Date _ Jessica Velez LEVELING MACHINE OPERATOR Cosigner Signature: Date CC: ~ Signed [facility] Work Phone: 1(133) 525-680008-11-2025 Consult note Author Jones Greer [facility] Note Date/Time November 17, 2024 1: 54pm [facility] Medical Records Department [address] [place] [address] Anesthesia Postop Eval I 11/17/24 1353 MR#: [id number] Acct: [id number] Name: DARYN GUILLERMO Rep #:[id number] : 1945 78 From: Jones Greer PCP: Dr. Delgado Amaro, DO Status:ADM IN Y Race: C Location: [address] Anesthesia: Postop Eval I Current Vital [...] Jones Acevedo Signature: Date CC: ~ Signed [facility] Work Phone: 1(400) 507-360408-11-2025 Consult note Author Manuel Campuzano [facility] Note Date/Time November 17, 2024 1: 29pm [facility] Medical Records Department [address] [place] [address] Pre-Anesthesia Evaluation 11/17/24 1311 MR#: [id number] Acct: [id number] Name: DARYN GUILLERMO Rep #:[id number] : 1945 78 From: Manuel Campuzano MD PCP: Dr. Delgado Amaro, DO Status:ADM IN Y Race: C Location: [place] [address] 2-1 ASA Classification* ASA Classification ASA Classification: [...] Procedure(s): Esophagogastroduodenoscopy Anesthesia History Anesthesia History - sound tester: Anesthesia History - sound tester Hx Hospitalization Yes: [facility] 10/21/24 08:35 Any [...] take am of surgery PONV PONV - sound tester: PONV - sound tester Female HX of Motion Sickness HX of N/V After Surgery Non-Smoker Duration of Surgery greater than 60 minutes Number of Risk Factors PONV Score Height & Weight Height & Weight: Anesthesia: Height & Weight Height 5 ft 6 in 11/17/24 04:03 Weight: 111.448 kg 11/17/24 04:03 Body Mass Index (BMI) 39.6 11/17/24 04:03 Respiratory Assessment Respiratory Assessment - sound tester: Respiratory Tract Infection Hx - sound tester Hx Respiratory Tract Infection No 10/21/24 08:35 Any additional information?: Yes Hx Respiratory Tract Infection: Yes History of Anesthesia Respiratory Infection details: Patient admitted with possible aspiration pneumonia. Patient is currently on nasal cannula oxygen. Not feeling any shortness of breath. STOP Sleep Apnea STOP Sleep Apnea - sound tester: STOP Sleep Apnea - sound tester Hx Hypertension Yes 11/09/24 12:59 Hx Sleep [...] Tobacco Use History Tobacco Use History - sound tester: Tobacco Use History - sound tester Tobacco Use Smoking Status Never smoker 11/09/24 09:08 Hx Tobacco Use No 11/09/24 09:08 Years Smoking Packs Smoked per Day Smoking Cessation Date was within the last 15 years Hx Smoking Cessation Date Hx Smoking Cessation Counseling Hematologic Medial History Hematologic Hx - sound tester: Hematologic Medical Hx - steward/stewardess deck Hx of Blood Transfusion No 11/09/24 09:08 [...] confused, unrespo /Reproduction History /Reproductive History - sound tester: /Reproductive Hx- sound tester Hx Now Gestational Age (in weeks): EDC: [...] 100 Mg Capsule PO Not Given BID [facility] Ferrous Sulfate 325 mg 11/09/24 12:00 11/17/24 11:05 Ferrous Sulfate 325 Mg Tablet PO Not Given DAILY@1200 SEVEN Glucagon 1 mg 11/09/24 08:25 Glucagon 1 Mg/Ml Syringe IM X1 PRN HYPOGLYCEMIA Protocol Dextrose 250 mls @ 0 mls/hr 11/09/24 08:25 Dextrose 10%-Water IV .Q0M PRN HYPOGLYCEMIA Protocol As Directed Sodium Chloride 250 mls @ 15 mls/hr 11/10/24 11:05 IV .[id number] PRN Saline Flush Sodium Chloride 250 mls @ 15 mls/hr 11/10/24 11:05 IV .[id number] PRN Additional IVPB Infusion Sodium Chloride 1,000 mls @ 75 mls/hr 11/14/24 11:35 11/17/24 12:29 IV 75 mls/hr .[id number] SEVEN Infusion Insulin Glargine 4 unit 11/09/24 10:00 11/17/24 11:05 Insulin Glargine-Yfgn 100 Unit/Ml Pen SC Not Given DAILY [facility] Insulin Human Lispro 0 unit 11/09/24 11:00 11/17/24 06:23 Insulin Lispro 100 Unit/Ml Insuln.Pen SC Not Given ACHS [facility] Protocol Melatonin 6 mg 11/09/24 22:00 11/16/24 22:51 Melatonin 3 Mg Tablet PO Not Given QHS [facility] Nystatin 1 applic 11/10/24 10:00 11/16/24 22:52 Nystatin Powder 15gm Bottle TOPICAL 1 applic BID [facility] Administration Protocol Ondansetron HCl 4 mg 11/09/24 08:25 11/10/24 19:25 Ondansetron 4 Mg/2 Ml Vial IV 4 mg Q8H PRN PRN Administration NAUSEA/VOMITING Pantoprazole Sodium 40 mg 11/09/24 10:00 11/17/24 11:05 Pantoprazole Sodium 40 Mg Tablet PO Not Given DAILY [facility] Polyethylene Glycol 17 gm 11/09/24 10:00 11/17/24 11:05 Polyethylene Glycol 3350 17 Gm Packet PO Not Given QODAY [facility] Senna/Docusate Sodium 2 tablet 11/09/24 08:25 Senna/Docusate [...] MD Cosigner Signature: Date CC: ~ Signed [facility] Work Phone: 1(802) 567-472408-11-2025 Consult note Author Jacinto Friend [facility] Note Date/Time November 17, 2024 1: 15pm [facility] Medical Records Department [address] [place] [address] Consultation - GI 11/17/24 1313 MR#: [id number] Acct: [id number] Name: DARYN GUILLERMO BLANE Rep #:[id number] : 1945 78 From: Jacinto Munoz DO PCP: Dr. Delgado Amaro DO Status:ADM IN Location: [facility] [id number] HPI Consult Data Date of Consult: 11/17/24 HPI Narrative Reason for Consultation: Dysphagia HPI Narrative: DARYN GUILLERMO, is a 78-year-old female history of heart failure with reduced ejection fraction, diabetes, A-fib on Eliquis, COPD, GERD, depression and anxiety who presented [facility] ED 11/09/2024 due to increasing lower extremity swelling, weight gain, orthopnea and worsening dyspnea. She wasdiagnosed with CHF exacerbation. During her stay she was noted to have worsening swallowing with solids. She does have history gastroesophageal refluxdisease. I was consulted for esophageal dysphagia. She denies any odynophagia. She denies any chest pain. She was short of breathon admission but that is improved. [facility] Medical History Post-menopausal History of ulceration Gastric [...] Neut % (Auto) 63.5, Lymph % (Auto) 22.6,[place] % (Auto) 10.4 H, Eos % (Auto) [...] of 3. Charges/Coding Visit Charges Inpatient E&M: 38796 Init Hosp L2 11/17/24 1315 <Electronically signed by Jacinto Friend > Cosigner Signature (if applicable): CC: Dr. Delgado Amaro DO~ Signed [facility] Work Phone: 1(244) 172-538608-11-2025 Progress note Author Shabbir Ricks [facility] Note Date/Time November 17, 2024 12 :54pm [facility] Medical Records Department [address] [place] [address] Progress Note - Hospitalist 11/17/24 1243 MR#: [id number] Acct: [id number] Name: DARYN GUILLERMO Rep #:[id number] : 1945 78 From: Shabbir loredo MD PCP: Dr. Delgado Amaro DO Status:ADM IN Location: [place] [address] Subjective Subjective Resting comfortably, maintaining her oxygen [...] Neut % (Auto) 63.5, Lymph % (Auto) 22.6,[place] % (Auto) 10.4 H, Eos % (Auto) [...] DVT: Eliquis Charges/Coding Visit Charges Inpatient E&M: 59210 Subs Hosp L2 11/17/24 1258 <Electronically signed by Shabbir Ricks MD> Cosigner Signature (if applicable): CC: ~ Signed [facility] Work Phone: 1(102) 984-452508-11-2025 Progress note Author Funmi Mcgrath [facility] Note Date/Time November 17, 2024 11 :55am [facility] Medical Records Department [address] [place] [address] Progress Note - Nephrology 11/17/24 1154 MR#: [id number] Acct: [id number] Name: DARYN GUILLERMO BLANE Rep #:[id number] : 1945 78 From: Funmi burrell MD PCP: Dr. Delgado Amaro, DO Status:ADM IN Location: [place] [address] Subjective Subjective no new complaints Objective Data [...] Neut % (Auto) 63.5, Lymph % (Auto) 22.6,[place] % (Auto) 10.4 H, Eos % (Auto) [...] Curtis Signature (if applicable): CC: ~ Signed [facility] Work Phone: 1(363) 800-506208-11-2025 Consult note [facility] Medical Records Department [address] [place] [address] Anesthesia Postop Eval I 11/17/24 1353 MR#: [id number] Acct: [id number] Name: DARYN GUILLERMO BLANE Rep #:[id number] : 1945 78 From: Jones Greer PCP: Dr. Delgado Amaro, DO Status:ADM IN Y Race: C Location: [place] [address] 05-10 Anesthesia: Postop Eval I Current Vital [...] Jones Acevedo Signature: Date CC: ~ Signed [facility]08-11-2025 Procedure note [facility] Medical Records Department [address] [place] [address] EGD Report MR#: [id number] Acct: [id number] Name: DARYN GUILLERMO Rep #:[id number] : 1945 78 From: Jacinto Munoz [...] present medications. Procedure Code(s): --- Professional --- 72949, Esophagogastroduodenoscopy, flexible, transoral; with insertion of guide wire followed by passage of dilator(s) through esophagus over guide wire 87626, 59,51, Esophagogastroduodenoscopy, flexible, transoral; with biopsy, single or multiple CPT copyright 2021 [employer]. All rights reserved. The codes documented in this report are preliminary and upon medical records coder review may be revised to meet current compliance requirements. Jacinto Munoz DO 11/17/2024 1:46:00 PM This report has been signed electronically. Number of Addenda: 0 Note Initiated On: 11/17/2024 1:21 PM 11/17/24 1346 Date _ Jacinto Friend DO Cosigner Signature: Date (if indicated) CC: Dr. Delgado Amaro DO; Jacinto Munoz DO ~ Date Dictated: 11/17/24 1321 Date Transcribed: Mechanical Systems Engineer: RF Signed [facility]08-11-2025 Procedure note [facility] Medical Records Department [address] [place] [address] Provation Physician Letter MR#: [id number] Acct: [id number] Name: DARYN GUILLERMO BLANE Rep #:[id number] 8 : 1945 78 From: Jacinto Munoz [...] ~ Date Dictated: 11/17/24 1321 Date Transcribed: Mechanical Systems Engineer: ADAMA Signed [facility]08-11-2025 Consult note [facility] Medical Records Department [address] [place] [address] Pre-Anesthesia Evaluation 11/17/24 1311 MR#: [id number] Acct: [id number] Name: DARYN GUILLERMO Rep #:[id number] 4 : 1945 78 From: Manuel Campuzano MD PCP: Dr. Delgado Amaro DO Status:ADM IN Y Race: C Location: [place] [address] 2-1 ASA Classification* ASA Classification ASA Classification: [...] Procedure(s): Esophagogastroduodenoscopy Anesthesia History Anesthesia History - sound tester: Anesthesia History - sound tester Hx Hospitalization Yes: [facility] 10/21/24 08:35 Any [...] take am of surgery PONV PONV - sound tester: PONV - sound tester Female HX of Motion Sickness HX of N/V After Surgery Non-Smoker Duration of Surgery greater than 60 minutes Number of Risk Factors PONV Score Height & Weight Height & Weight: Anesthesia: Height & Weight Height 5 ft 6 in 11/17/24 04:03 Weight: 111.448 kg 11/17/24 04:03 Body Mass Index (BMI) 39.6 11/17/24 04:03 Respiratory Assessment Respiratory Assessment - sound tester: Respiratory Tract Infection Hx - sound tester Hx Respiratory Tract Infection No 10/21/24 08:35 Any additional information?: Yes Hx Respiratory Tract Infection: Yes History of Anesthesia Respiratory Infection details: Patient admitted with possible aspiration pneumonia. Patient is currently on nasal cannula oxygen. Not feeling any shortness of breath. STOP Sleep Apnea STOP Sleep Apnea - sound tester: STOP Sleep Apnea - sound tester Hx Hypertension Yes 11/09/24 12:59 Hx Sleep [...] Tobacco Use History Tobacco Use History - sound tester: Tobacco Use History - sound tester Tobacco Use Smoking Status Never smoker 11/09/24 09:08 Hx Tobacco Use No 11/09/24 09:08 Years Smoking Packs Smoked per Day Smoking Cessation Date was within the last 15 years Hx Smoking Cessation Date Hx Smoking Cessation Counseling Hematologic Medial History Hematologic Hx - sound tester: Hematologic Medical Hx - steward/stewardess deck Hx of Blood Transfusion No 11/09/24 09:08 [...] confused, unrespo /Reproduction History /Reproductive History - sound tester: /Reproductive Hx- sound tester Hx Now Gestational Age (in weeks): EDC: [...] mls @ 15 mls/hr 11/10/24 11:05 IV .[id number] PRN Saline Flush Sodium Chloride 250 mls @ 15 mls/hr 11/10/24 11:05 IV .[id number] PRN Additional IVPB Infusion Sodium Chloride 1,000 mls @ 75 mls/hr 11/14/24 11:35 11/17/24 12:29 IV 75 mls/hr .T88S16S SEVEN Infusion Insulin Glargine 4 unit 11/09/24 10:00 11/17/24 11:05 Insulin Glargine-Yfgn 100 Unit/Ml Pen SC Not Given DAILY SEVEN Insulin Human Lispro 0 unit 11/09/24 11:00 11/17/24 06:23 Insulin Lispro 100 Unit/Ml Insuln.Pen SC Not Given ACHS [facility] Protocol Melatonin 6 mg 11/09/24 22:00 11/16/24 22:51 Melatonin 3 Mg Tablet PO Not Given QHS SEVEN Nystatin 1 applic 11/10/24 10:00 11/16/24 22:52 Nystatin Powder 15gm Bottle TOPICAL 1 applic BID [facility] Administration Protocol Ondansetron HCl 4 mg 11/09/24 [...] MD Cosigner Signature: Date CC: ~ Signed [facility]08-11-2025 Consult note [facility] Medical Records Department [address] [place] [address] Consultation - GI 11/17/24 1313 MR#: [id number] Acct: [id number] Name: DARYN GUILLERMO Rep #:[id number] 9 : 1945 78 From: Jacinto Munoz DO PCP: Dr. Delgado Amaro DO Status:ADM IN Location: [place] [address] HPI Consult Data Date of Consult: 11/17/24 HPI Narrative Reason for Consultation: Dysphagia HPI Narrative: DARYN GUILLERMO, is a 78-year-old female history of heart failure with reduced ejection fraction, diabetes, A-fib on Eliquis, COPD, GERD, depression and anxiety [facility] due to increasing lower extremity swelling, weight gain, orthopnea and worsening dyspnea. She wasdiagnosed with CHF exacerbation. During her stay she was noted to have worsening swallowing with solids. She does have history gastroesophageal refluxdisease. I was consulted for esophageal dysphagia. She denies any odynophagia. She denies any chest pain. She was short of breathon admission but thatis improved. [facility] Medical History Post-menopausal History of ulceration Gastric [...] 0.500,Neut % (Auto) 63.5, Lymph % (Auto) 22.6,[place] % (Auto) 10.4 H, Eos % (Auto) [...] of 3. Charges/Coding Visit Charges Inpatient E&M: 91374 Init Hosp L2 11/17/24 1315 Cosigner Signature (if applicable): CC: Dr. Delgado Amaro, DO~ Signed [facility]08-11-2025 Progress note [facility] Medical Records Department [address] [place] [address] Progress Note - Hospitalist 11/17/24 1243 MR#: [id number] Acct: [id number] Name: DARYN GUILLERMO Rep #:[id number] 3 : 1945 78 From: Shabbir loredo MD PCP: Dr. Delgado Amaro, DO Status:ADM IN Location: [place] [address] Subjective Subjective Resting comfortably, maintaining her oxygen [...] 0.500,Neut % (Auto) 63.5, Lymph % (Auto) 22.6,[place] % (Auto) 10.4 H, Eos % (Auto) [...] DVT: Eliquis Charges/Coding Visit Charges Inpatient E&M: 75603 Subs Hosp L2 11/17/24 1254 Cosigner Signature (if applicable): CC: ~ Signed [facility]08-11-2025 Progress note [facility] Medical Records Department [address] [place] [address] Progress Note - Nephrology 11/17/24 1154 MR#: [id number] Acct: [id number] Name: DARYN GUILLERMO Rep #:[id number] 8 : 1945 78 From: Funmi burrell MD PCP: Dr. Delgado Amaro, DO Status:ADM IN Location: [place] [address] Subjective Subjective no new complaints Objective Data [...] 0.500,Neut % (Auto) 63.5, Lymph % (Auto) 22.6,[place] % (Auto) 10.4 H, Eos % (Auto) [...] Cosigner Signature (if applicable): CC: ~ Signed [facility]08-10-2025 Progress note Author Edmundo Monge [facility] Note Date/Time November 16, 2024 4: 47pm [facility] Medical Records Department [address] [place] [address] Progress Note - Hospitalist 11/16/24 1644 MR#: [id number] Acct: [id number] Name: DARYN GUILLERMO Rep #:[id number] 8 : 1945 78 From: Edmundo Monge DO PCP: Dr. Delgado Amaro, DO Status:ADM IN Location: [place] [address] Reason for Visit Chief Complaint: Lower extremity [...] team: 35-minute Charges/Coding Visit Charges Inpatient E&M: 47594 Subs Hosp L2 11/16/24 2538 <Electronically signed by Edmundo Tereletsky DO> Cosigner Signature (if applicable): CC: ~ Signed [facility] Work Phone: 1(913) 658-241708-10-2025 Progress note [facility] Medical Records Department [address] [place] [address] Progress Note - Hospitalist 11/16/24 1644 MR#: [id number] Acct: [id number] Name: DARYN GUILLERMO Rep #:[id number] 8 : 1945 78 From: Edmundo Monge DO PCP: Dr. Delgado Amaro, DO Status:ADM IN Location: [place] [address] Reason for Visit Chief Complaint: Lower extremity [...] team: 35-minute Charges/Coding Visit Charges Inpatient E&M: 27776 Subs Hosp L2 11/16/24 1647 Cosigner Signature (if applicable): CC: ~ Signed [facility]08-10-2025 Progress note Author Baltazar Julio [facility] Note Date/Time November 16, 2024 9: 56am [facility] Medical Records Department [address] [place] [address] Progress Note - Nephrology 11/16/24 0953 MR#: [id number] Acct: [id number] Name: DARYN GUILLERMO Rep #:[id number] 3 : 1945 78 From: Baltazar Julio MD PCP: Dr. Delgado Amaro, DO Status:ADM IN Location: [place] [address] Subjective Subjective no acute events no new [...] Cosigner Signature (if applicable): CC: ~ Signed [facility] Work Phone: 1(269) 195-657008-10-2025 Progress note [facility] Medical Records Department [address] [place] [address] Progress Note - Nephrology 11/16/24 0953 MR#: [id number] Acct: [id number] Name: DARYN GUILLERMO BLANE Rep #:[id number] 3 : 1945 78 From: Baltazar Julio MD PCP: Dr. Delgado Amaro, DO Status:ADM IN Location: [place] [address] Subjective Subjective no acute events no new [...] Cosigner Signature (if applicable): CC: ~ Signed [facility]08-09-2025 Progress note Author Edmundo Monge [facility] Note Date/Time November 15, 2024 1:2 8pm [facility] Medical Records Department [address] [place] [address] Progress Note - Hospitalist 11/15/24 1324 MR#: [id number] Acct: [id number] Name: DARYN GUILLERMO Rep #:[id number] 0 : 1945 78 From: Edmundo Monge DO PCP: Dr. Delgado Amaro, DO Status:ADM IN Location: [place] [address] Reason for Visit Chief Complaint: Lower extremity [...] team: 35-minute Charges/Coding Visit Charges Inpatient E&M: 58248 Subs Hosp L2 11/15/24 1328 <Electronically signed by Edmundo Monge DO> Cosigner Signature (if applicable): CC: ~ Signed [facility] Work Phone: 1(174) 389-115808-09-2025 Progress note [facility] Medical Records Department [address] [place] [address] Progress Note - Hospitalist 11/15/24 1324 MR#: [id number] Acct: [id number] Name: DARYN GUILLERMO Rep #:[id number] 0 : 1945 78 From: Edmundo Monge DO PCP: Dr. Delgado Amaro, Status:ADM IN Location: [place] [address] Reason for Visit Chief Complaint: Lower extremity [...] team: 35-minute Charges/Coding Visit Charges Inpatient E&M: 03302 Subs Hosp L2 11/15/24 1328 Cosigner Signature (if applicable): CC: ~ Signed [facility]08-08-2025 Progress note Author Edmundo Hitchcockc[facility] center[facility] Note Date/Time November 14, 2024 7:1 7pm [facility] Medical Records Department [address] [facility] [place] [address] Progress Note - Hospitalist 11/14/241912 MR#: [id number] Acct: [id number] Name: DARYN GUILLERMO Rep #:[id number] 4 : 1945 78 From: Edmundo Monge DO PCP: Dr. Delgado Amaro, DO Status:ADM IN Location: [place] [address]- Reason for Visit Chief Complaint: Lower extremity [...] (Auto) 70.8 H, Lymph % (Auto) 20.0, [place] % (Auto) 7.6, Eos % (Auto) 0.8, [...] team: 35-minute Charges/Coding Visit Charges Inpatient E&M: 44874 Subs Hosp L2 11/14/241916 <Electronically signed by Edmundo Monge DO> Cosigner Signature (if applicable): CC: ~ Signed [facility] Work Phone: 1(690) 483-985608-08-2025 Progress note [facility] Medical Records Department [address] [place] [address] Progress Note - Hospitalist 11/14/241912 MR#: [id number] Acct: [id number] Name: DARYN GUILLERMO Rep #:[id number] 4 : 1945 78 From: Edmundo Monge DO PCP: Dr. Delgado Amaro, DO Status:ADM IN Location: [place] [address] Reason for Visit Chief Complaint: Lower extremity [...] (Auto) 70.8 H, Lymph % (Auto) 20.0, [place] % (Auto) 7.6, Eos % (Auto) 0.8, [...] team: 35-minute Charges/Coding Visit Charges Inpatient E&M: 04929 Subs Hosp L2 11/14/241916 Cosigner Signature (if applicable): CC: ~ Signed [facility]08-08-2025 Procedure note [facility] Speech Pathology [address] [place] [address] Modified Barium Swallow Study MR#: [id number] Acct: [id number] Name: DARYN GUILLERMO BLANE Rep #:[id number] 2 : 1945 78 From: Ivet Swan, [facility] Modified Barium Swallow Patient Information Study Date: [...] 2diabetes, GERD, and depression/anxiety.She presented to the [facility] ED on 11/09/2024 with worsening lower [...] recommended with plans for outpatient follow-up at [facility] regarding aortic stenosis evaluation. Speech therapy was consulted for dysphagia evaluation due to concerns for aspiration. RN (Ariel) reported the patient was made NPO pending assessment withobserved wheezing and worsening lung sounds after PO intake. The patient appeared drowsy and lethargic at the time of ST evaluation 11/15/2024. Shewas recommended NPO and re-evaluated today. Pt was more alert and PRESS CLIPPER recommended participation in MBSS to further assess [...] to the pyriform sinuses; otherwise, complete clearance. [place] Thick Liquid via small single sip: cup: [...] Status Active ST Patient: Active Contact Information [facility] Speech Therapy:: Ivet Gallardo M.A. CCC-PRESS CLIPPER? Speech-Language Pathologist?? [facility] [address] [place] [address]? [email or web address]?? [phone] 11/14/24 1531 Kassandra CCC-PRESS CLIPPER> Date/Time Ivet Gallardo M.A. CCC-PRESS CLIPPER Co-Signature Required for all Medicare patients Date/Time Co-Signature CC: ~ [facility]08-08-2025 Progress note Author Radha Kee [facility] Note Date/Time November 14, 2024 11: 29am [facility] Medical Records Department [address] [place] [address] Progress Note - Nephrology 11/14/24 1124 MR#: [id number] Acct: [id number] Name: DARYN GUILLERMO Rep #:[id number] 8 : 1945 78 From: Radha glass MD PCP: Dr. Delgado Amaro, DO Status:ADM IN Location: [place] [address] Subjective Subjective Follow-up on acute kidney injury. [...] (Auto) 70.8 H, Lymph % (Auto) 20.0, [place] % (Auto) 7.6, Eos % (Auto) 0.8, [...] Cosigner Signature (if applicable): CC: ~ Signed [facility] Work Phone: 1(600) 218-844108-08-2025 Progress note [facility] Medical Records Department [address] [place] [address] Progress Note - Nephrology 11/14/241123 MR#: [id number] Acct: [id number] Name: DARYN GUILLERMO Rep #:[id number] 8 : 1945 78 From: Radha glass MD PCP: Dr. Delgado Amaro, DO Status:ADM IN Location: [place] [address] Subjective Subjective Follow-up on acute kidney injury. [...] (Auto) 70.8 H, Lymph % (Auto) 20.0, [place] % (Auto) 7.6, Eos % (Auto) 0.8, [...] Cosigner Signature (if applicable): CC: ~ Signed [facility]08-07-2025 Progress note Author Edmundo Monge [facility] Note Date/Time November 13, 2024 6:1 6pm [facility] Medical Records Department [address] [facility] [place] [address] Progress Note - Hospitalist 11/13/24 1810 MR#: [id number] Acct: [id number] Name: DARYN GUILLERMO Rep #:[id number] 3 : 1945 78 From: Edmundo Monge DO PCP: Dr. Delgado Amaro, DO Status:ADM IN Location: [place] [id number]- 1 Reason for Visit Chief Complaint: Lower [...] 76.6 H, Lymph % (Auto) 15.2 L, [place] % (Auto) 7.3, Eos % (Auto) 0.2, [...] although there has been improvement. Reading Location: [id number] Physical Exam Narrative alert and no apparent [...] team: 35-minute Charges/Coding Visit Charges Inpatient E&M: 17784 Subs Hosp L2 11/13/24 2579 <Electronically signed by Edmundo Monge DO> Cosigner Signature (if applicable): CC: ~ Signed [facility] Work Phone: 1(840) 864-508608-07-2025 Progress note Author Edmundo Monge [facility] Note Date/Time November 13, 2024 6:1 0pm [facility] Medical Records Department [address] [place] [address] Progress Note - Hospitalist 11/12/24 1744 MR#: [id number] Acct: [id number] Name: DARYN GUILLERMO Rep #:[id number] 0 : 1945 78 From: Edmundo Monge DO PCP: Dr. Delgado Amaro, DO Status:ADM IN Location: [place] [address]- Reason for Visit Chief Complaint: Lower extremity [...] 2. Additional description as above. Reading Location: [id number] Physical Exam Narrative alert and no apparent [...] team: 35-minute Charges/Coding Visit Charges Inpatient E&M: 98469 Subs Hosp L2 11/13/24 1810 <Electronically signed by Edmundo Monge DO> Cosigner Signature (if applicable): CC: ~ Signed [facility] Work Phone: 1(180) 460-410108-07-2025 Progress note Author Edmundo [facility] Note Date/Time November 13, 2024 5:[address] [facility] Medical Records Department [address] [place] [address] Progress Note - Hospitalist 11/11/24 1610 MR#: [id number] Acct: [id number] Name: DARYN GUILLERMO Rep #:[id number] 4 : 1945 78 From: Edmundo Monge DO PCP: Dr. Delgado Amaro, DO Status:ADM IN Location: [place] [address] Reason for Visit Chief Complaint: Lower extremity [...] Clarity Cloudy, Urine pH 5.0, Ur Specific [place] 1.025, Urine Protein 100 H, Urine Glucose [...] has been improvement. Bibasilar atelectasis. Reading Location: [facility] Physical Exam Narrative alert and no apparent [...] team: 35-minute Charges/Coding Visit Charges Inpatient E&M: 88637 Subs Hosp L2 11/13/24 2945 <Electronically signed by Edmundo Monge DO> Cosigner Signature (if applicable): CC: ~ Signed [facility] Work Phone: 1(160) 999-529308-07-2025 Progress note [facility] Medical Records Department [address] [place] [address] Progress Note - Hospitalist 11/13/24 1810 MR#: [id number] Acct: [id number] Name: DARYN GUILLERMO Rep #:[id number] 3 : 1945 78 From: Edmundo Monge DO PCP: Dr. Delgado Amaro, DO Status:ADM IN Location: [place] [address] Reason for Visit Chief Complaint: Lower extremity [...] 76.6 H, Lymph % (Auto) 15.2 L, [place] % (Auto) 7.3, Eos % (Auto) 0.2, [...] although there has been improvement. Reading Location: [facility] Physical Exam Narrative alert and no apparent [...] team: 35-minute Charges/Coding Visit Charges Inpatient E&M: 47071 Subs Hosp L2 11/13/24 1816 Cosigner Signature (if applicable): CC: ~ Signed [facility]08-07-2025 Progress note [facility] Medical Records Department [address] [place] [address] Progress Note - Hospitalist 11/12/24 1744 MR#: [id number] Acct: [id number] Name: DARYN GUILLERMO Rep #:[id number] 0 : 1945 78 From: Edmundo Monge DO PCP: Dr. Delgado Amaro, DO Status:ADM IN Location: [place] [address] Reason for Visit Chief Complaint: Lower extremity [...] 2. Additional description as above. Reading Location: [facility] Physical Exam Narrative alert and no apparent [...] team: 35-minute Charges/Coding Visit Charges Inpatient E&M: 26454 Subs Hosp L2 11/13/24 1810 Cosigner Signature (if applicable): CC: ~ Signed [facility]08-07-2025 Progress note [facility] Medical Records Department [address] [place] [address] Progress Note - Hospitalist 11/11/24 1610 MR#: [id number] Acct: [id number] Name: DARYN GUILLERMO Rep #:[id number] 4 : 1945 78 From: Edmundo Monge DO PCP: Dr. Delgado Amaro, DO Status:ADM IN Location: [place] [address] Reason for Visit Chief Complaint: Lower extremity [...] Clarity Cloudy, Urine pH 5.0, Ur Specific [place] 1.025, Urine Protein 100 H, Urine Glucose [...] has been improvement. Bibasilar atelectasis. Reading Location: [facility] Physical Exam Narrative alert and no apparent [...] team: 35-minute Charges/Coding Visit Charges Inpatient E&M: 84761 Subs Hosp L2 11/13/24 1751 Cosigner Signature (if applicable): CC: ~ Signed [facility]08-07-2025 Radiology Diagnostic study note [facility] Imaging Services [address] [place] [address] Chest 1 View (Portable) MR#: [id number] Acct: [id number] Name: DARYN GUILLERMO Rep #: [id number] 9 : 1945 F 78 From: Сергей Wolff MD PCP: Dr. Delgado Amaro DO Status: ADM IN Study:Chest 1 View (Portable) Date of Exam: 11/13/24 Exam# [id number] Ordering Dr: Edmundo Ron DO PROCEDURE: CHEST [...] although there has been improvement. Reading Location: [facility] CC: Dr. Edmundo Monge, DO; Dr. Delgado Amaro, ~ Mechanical Systems Engineer: Signed [facility]08-06-2025 Consult note Author Jeri Rowland [facility] Note Date/Time November 12, 2024 11: 09am [facility] Medical Records Department [address] [place] [address] Consultation - Nephrology 11/11/24 1153 MR#: [id number] Acct: [id number] Name: DARYN GUILLERMO Rep #:[id number] 1 : 1945 78 From: Jeri torrez FINANCIAL SALES PROFESSIONAL-C PCP: Dr. Delgado Amaro DO Status:ADM IN Location: [place] [address] Assessment & Plan Assessment/Plan (1) Acute renal [...] by nephrology. She does states she saw manager graphic in [place] some years back after she developed cellulitis with kidney injury. She has never required any hemodialysis. Baseline creatinine ranging around 1 to 1.2 mg/dL. On admission creatinine 1.5 and today her creatinine is 2.11. Patient reports breathing improved, edema to lower legs also improved. She is currently on room air. She denies any nausea, vomiting or diarrhea. [facility] Medical History Post-menopausal History of ulceration Gastric [...] has been improvement. Bibasilar atelectasis. Reading Location: [id number] 11/11/24 1201 <Electronically signed by Jeri CASH> Cosigner Signature (if applicable): 11/12/24 1109 <Electronically signed by Radha Kee MD> CC: Dr. Delgado Amaro, DO~ Signed [facility] Work Phone: 1(626) 202-834108-06-2025 Progress note Author Radha Luxbradly [facility] Note Date/Time November 12, 2024 11: 09am [facility] Medical Records Department [address] [place] [address] Progress Note - Nephrology 11/12/24 1100 MR#: [id number] Acct: [id number] Name: DARYN GUILLERMO Rep #:[id number] 6 : 1945 78 From: Radha glass MD PCP: Dr. Delgado Amaro, Status:ADM IN Location: [place] [address] Subjective Subjective Follow-up on acute kidney injury. [...] Clarity Cloudy, Urine pH 5.0, Ur Specific [place] 1.025, Urine Protein 100 H, Urine Glucose [...] 2. Additional description as above. Reading Location: [facility] Physical Exam Const Orientation / Consciousness: oriented [...] Cosigner Signature (if applicable): CC: ~ Signed [facility] Work Phone: 1(256) 158-292708-06-2025 Consult note [facility] Medical Records Department [address] [place] [address] Consultation - Nephrology 11/11/24 1153 MR#: [id number] Acct: [id number] Name: DARYN GUILLERMO Rep #:[id number] 1 : 1945 78 From: Jeri torrez NP-C PCP: Dr. Delgado Amaro, DO Status:ADM IN Location: [place] [address] Assessment & Plan Assessment/Plan (1) Acute renal [...] followed routinely by nephrology. She does states [facility] manager graphic in [place] some years back after she developed cellulitis with kidney injury. She h as never required any hemodialysis. Baseline creatinine ranging around 1 to 1.2 mg/dL. On admissioncreatinine 1.5 and today her creatinine is 2.11. Patient reports breathing improved, edema to lowerlegs also improved. She is currently on room air. She denies any nausea, vomiting or diarrhea. [facility] Medical History Post-menopausal History of ulceration Gastric [...] has been improvement. Bibasilar atelectasis. Reading Location: [id number] 11/11/24 1201 Cosigner Signature (if applicable): 11/12/24 1109 CC: Dr. Delgado Amaro DO~ Signed [place] [address]-06-2025 Progress note [facility] Medical Records Department [address] [place] [address] Progress Note - Nephrology 11/12/24 1100 MR#: [id number] Acct: [id number] Name: DARYN GUILLERMO Rep #:[id number] 6 : 1945 78 From: Radha glass MD PCP: Dr. Delgado Amaro, Status:ADM IN Location: [place] [address] Subjective Subjective Follow-up on acute kidney injury. [...] Clarity Cloudy, Urine pH 5.0, Ur Specific [place] 1.025, Urine Protein 100 H, Urine Glucose [...] 2. Additional description as above. Reading Location: [facility] Physical Exam Const Orientation / Consciousness: oriented [...] Cosigner Signature (if applicable): CC: ~ Signed [facility] [id number] Radiology Diagnostic study note [facility] Imaging Services [address] [place] [id number] Kidney and Bladder MR#: [id number] Acct: [id number] Name: DARYN GUILLERMO Rep #: [id number] 3 : 1945 F 78 From: Danisha Ruiz MD PCP: Dr. Delgado Amaro, DO Status: ADM IN Study:Kidney and Bladder Date of Exam: 0 11/11/24 Exam# [id number] Ordering Dr: Jeri Villaseñor i PROCEDURE: KIDNEY [...] 2. Additional description as above. Reading Location: [facility] CC: FINANCIAL SALES PROFESSIONAL-C Jeri Rowland; Dr. Delgado Amaro DO ~ Mechanical Systems Engineer: Signed [facility]08-05-2025 Radiology Diagnostic study note [facility] Imaging Services [address] [place] [place] [address] Chest 1 View (Portable) MR#: [id number] Acct: [id number] Name: DARYN GUILLERMO Rep #: [id number] 8 : 1945 F 78 From: Сергей Wolff MD PCP: Dr. Delgado Amaro, DO Status: ADM IN Study:Chest 1 View (Portable) Date of Exam: 11/11/24 Exam# [id number] Ordering Dr: Edmundo Ron DO PROCEDURE: CHEST [...] has been improvement. Bibasilar atelectasis. Reading Location: [facility] CC: Dr. Edmundo Monge DO; Dr. Delgado Amaro DO ~ Mechanical Systems Engineer: Signed [facility]08-04-2025 Progress note Author Edmundo Monge [facility] Note Date/Time November 10, 2024 7:2 2pm [facility] Medical Records Department [address] [place] [address] Progress Note - Hospitalist 11/10/241914 MR#: [id number] Acct: [id number] Name: DARYN GUILLERMO Rep #:[id number] 4 : 1945 78 From: Edmundo Mnoge DO PCP: Dr. Delgado Amaro DO Status:ADM IN Location: [place] [address] Reason for Visit Chief Complaint: Lower extremity [...] % (Auto) 64.5, Lymph % (Auto) 27.0, [place] % (Auto) 6.3, Eos % (Auto) 0.8, [...] team: 35-minute Charges/Coding Visit Charges Inpatient E&M: 74026 Subs Hosp L2 11/10/241921 <Electronically signed by Edmundo Monge DO> Cosigner Signature (if applicable): CC: ~ Signed [facility] Work Phone: 1(424) 257-839808-04-2025 Progress note [facility] Medical Records Department [address] [place] [address] Progress Note - Hospitalist 11/10/241914 MR#: [id number] Acct: [id number] Name: DARYN GUILLERMO Rep #:[id number] 4 : 1945 78 From: Edmundo Monge DO PCP: Dr. Delgado Amaro, DO Status:ADM IN Location: [place] [address] Reason for Visit Chief Complaint: Lower extremity [...] % (Auto) 64.5, Lymph % (Auto) 27.0, [place] % (Auto) 6.3, Eos % (Auto) 0.8, [...] team: 35-minute Charges/Coding Visit Charges Inpatient E&M: 74443 Subs Hosp L2 11/10/241921 Cosigner Signature (if applicable): CC: ~ Signed [facility]08-03-2025 History and physical note Author Emily Cummings [facility] Note Date/Time November 09, 2024 7:5 7am [facility] Medical Records Department [address] [place] [address] H&P Exam - Hospitalist 11/09/24 0747 MR#: [id number] Acct: [id number] Name: DARYN GUILLERMO Rep #:[id number] 6 : 1945 78 From: Emily Cummings MD PCP: Dr. Delgado Amaro, DO Status:ADM IN Location: [facility] QXP911- 1 HPI - General General Date of Admission: 11/09/24 Date of Service: 11/09/24 Chief Complaint: Lower extremity swelling and shortness of breath HPI Narrative DARYN GUILLERMO, is a 78-year-old female history of heart failure with reduced ejection fraction, diabetes, A-fib on Eliquis, COPD, GERD, depression and anxiety who presented [facility] ED 11/09/2024 due to increasing lower [...] with patient and [facility] coming Sunday for routine evaluation [...] and follow-up outpatient with Steven on discharge. [facility] Medical History Post-menopausal History of ulceration Gastric [...] % (Auto) 57.8, Lymph % (Auto) 32.8, [place] % (Auto) 6.5, Eos % (Auto) 1.6, [...] H, Calcium 9.1, [place] [address] H Imaging Radiology Impression Chest X-Ray 11/09/24 05:10 IMPRESSION: Possible asymmetric edema or consolidation in the right central lung. Recommendfollow up imaging. Reading Location: [facility] Assessment & Plan Assessment/Plan (1) CHF exacerbation: [...] than 3 months ago -Does follow with [facility] on an outpatient basis and was last seen 10/09/2024 -Daily weights, I's and O's -Fluid restriction, heart healthy diet #SANDRA - Suspect cardiorenal - Baseline creatinine around 1.19, today 1.58 - Suspect this will improve with IV diuresis - Repeat in the a.m., avoid nephrotoxic agents as able # Severe aortic valve stenosis - Patient already scheduled to follow-up with [facility] for her heart valve in November, she reports this is on Sunday - Patient vitally stable and not hypoxic - Suspect she will just need IV diuresis for improvement in symptoms and then can be discharged to follow-up with [facility] for outpatient evaluation -There does not [...] Cummings MD Charges/Coding Visit Charges Inpatient E&M: 21803 Init Hosp L2 11/09/24 0752 <Electronically signed by Emily Cummings MD> Cosigner Signature (if applicable): CC: Dr. Emily Cummings MD; Dr. Delgado Amaro DO~ Signed [facility] Work Phone: 1(434) 633-892808-03-2025 Discharge summary Author Kenyon Shin [facility] Note Date/Time November 09, 2024 6:[address] [facility] Medical Records Department [address] [place] [address] Emergency Department Summary 11/09/24 MR#: [id number] Acct: [id number] Name: DARYN GUILLERMO Rep #:[id number] 1 : 1945 78 From: Kenyon Drew [...] cannula however presented 90% [facility] air. [facility] will check [...] clinician: Hospitalist This note was generated with SoNetJob dictation software. It may contain incorrectwords, spelling, [...] % (Auto) 57.8 Lymph % (Auto) 32.8 [place] % (Auto) 6.5 Eos % (Auto) 1.6 [...] H [place]cium 9.[place] [address] H Radiography Diagnostic Testing: Clinical Impression(s) from Imaging Studies Chest X-Ray 11/09/24 05:10 IMPRESSION: Possible asymmetric edema or consolidation in the right central lung. Recommendfollow up imaging. Reading Location: [place] [address] Discharge Plan Dx/Rx/DC Orders Clinical Impression: CHF exacerbation, Acute renal insufficiency, Failure of outpatient treatment, A- fib, Chronic anticoagulation Disposition Disposition: Acute Care Hospital [facility] What to do if you have Problems For any increased pain, shortness of breath, bleeding, nausea or vomiting, chestpain, or any unexpected problems, contact your Primary Care Provider. Call [facility] ([phone]) or report to the closest Emergency Room. Call 911 if necessary. 11/09/24 0645 <Electronically signed by Kenyon Drew> Cosigner Signature (if applicable): CC: Dr. Delgado Amaro DO ~ Signed [facility] Work Phone: 1(609) 105-499908-03-2025 History and physical note [facility] Medical Records Department [address] [place] [address] H&P Exam - Hospitalist 11/09/24 0747 MR#: [id number] Acct: [id number] Name: DARYN GUILLERMO BLANE Rep #:[id number] 6 : 1945 78 From: Emily Cummings MD PCP: Dr. Delgado Amaro DO Status:ADM IN [facility] HPI - General General Date of Admission: 11/09/24 Date of Service: 11/09/24 Chief Complaint: Lower extremity swelling and shortness of breath HPI Narrative DARYN GUILLERMO, is a 78-year-old female history of heart failure with reduced ejection fraction, diabetes, A-fib on Eliquis, COPD, GERD, depression and anxiety [facility] due to increasing lower extremity [...] patient and [facility] is [facility] coming Sunday for routine evaluation [...] to stay here and follow-up outpatient with Sidney on discharge. [facility] Medical History Post-menopausal History of ulceration Gastric [...] % (Auto) 57.8, Lymph % (Auto) 32.8, [place] % (Auto) 6.5, Eos % (Auto) 1.6, [...] H, Calcium 9.1, [place] [address] H Imaging Radiology Impression Chest X-Ray 11/09/24 05:10 IMPRESSION: Possible asymmetric edema or consolidation in the right central lung. Recommendfollow up imaging. Reading Location: [place] [address] Assessment & Plan Assessment/Plan (1) CHF exacerbation: [...] than 3 months ago -Does follow with [facility] on an outpatient basis and was last seen 10/09/2024 -Daily weights, I's and O's -Fluid restriction, heart healthy diet #SANDRA - Suspect cardiorenal - Baseline creatinine around 1.19, today 1.58 - Suspect this will improve with IV diuresis - Repeat in the a.m., avoid nephrotoxic agents as able # Severe aortic valve stenosis - Patient already scheduled to follow-up with [facility] for her heart valve in November, she reportsthis is on Sunday - Patient vitally stable and not hypoxic - Suspect she will just need IV diuresis for improvement in symptoms and then can be discharged to follow-up with [facility] for outpatient evaluation -There does not [...] Cummings MD Charges/Coding Visit Charges Inpatient E&M: 48272 Init Hosp L2 11/09/24 0757 Cosigner Signature (if applicable): CC: Dr. Emily Cummings MD; Dr. Delgado Amaro DO~ Signed [facility]08-03-2025 Discharge summary [facility] Medical Records Department [address] [place] [address] Emergency Department Summary 11/09/24 MR#: [id number] Acct: [id number] Name: DARYN GUILLERMO Rep #:[id number] 1 : 1945 78 From: Kenyon Drew [...] cannula however presented 90% on room air. [facility] basic labs for kidney function will check [...] clinician: Hospitalist This note was generated with SoNetJob dictation software. It may contain incorrectwords, spelling, [...] % (Auto) 57.8 Lymph % (Auto) 32.8 [place] % (Auto) 6.5 Eos % (Auto) 1.6 [...] H Calcium 9.1 [place] [address] H Radiography Diagnostic Testing: Clinical Impression(s) from Imaging Studies Chest X-Ray 11/09/24 05:10 IMPRESSION: Possible asymmetric edema or consolidation in the right central lung. Recommendfollow up imaging. Reading Location: [facility] Discharge Plan Dx/Rx/DC Orders Clinical Impression: CHF exacerbation, Acute renal insufficiency, Failure of outpatient treatment, A- fib, Chronic anticoagulation Disposition Disposition: Acute Care [facility] What to do if you have Problems For any increased pain, shortness of breath, bleeding, nausea or vomiting, chestpain, or any unexpected problems, contact your Primary Care Provider. Call [facility] ([phone]) or report tothe closest Emergency Room. Call 911 if necessary. 11/09/24 0645 Cosigner Signature (if applicable): CC: Dr. Delgado Amaro DO ~ Signed [facility]08-03-2025 Radiology Diagnostic study note [facility] Imaging Services [address] [place] [address] Chest 1 View (Portable) MR#: [id number] Acct: [id number] Name: DARYN GUILLERMO Rep #: [id number] 7 : 1945 F 78 From: Brigida Hunter MD PCP: April Mullen MD Status: PRE ER Study:Chest 1 View (Portable) Date of Exam: 11/09/24 Exam# [id number] Ordering Dr: Kenyon Shin DO PROCEDURE: CHEST [...] central lung. Recommendfollow up imaging. Reading Location: [facility]-2 CC: Dr. Kenyon Shin DO; April Mullen MD ~ Mechanical Systems Engineer: Signed [facility]07-22-2025 Consult note [facility] Medical Records Department [address] [place] [address] Anesthesia Postop Eval II 10/28/24 1232 MR#: [id number] Acct: [id number] Name: DARYN GUILLERMO Rep #:[id number] 6 : 1945 78 From: Jurgen Licea PCP: April Mullen MD Status:REG SDC Y Race: C Location: [address] Anesthesia Postop Eval I Sum Postop [...] MD Cosigner Signature: Date CC: ~ Signed [facility]07-22-2025 Consult note [facility] Medical Records Department [address] [place] [address] [place] [address] Anesthesia Postop Eval I 10/28/248 MR#: [id number] Acct: [id number] Name: DARYN GUILLERMO BLANE Rep #:[id number] 3 : 1945 78 From: Jones Greer PCP: April Mullen MD Status:REG [facility] Y Race: C Location: [place] [address] Anesthesia: Postop Eval I Current Vital Signs [...] Jones Acevedo Signature: Date CC: ~ Signed [facility]07-22-2025 Procedure note [facility] Medical Records Department [address] [place] [address] EGD Report MR#: [id number] Acct: [id number] Name: DARYN GUILLERMO BLANE Rep #:[id number] 9 : 1945 78 From: Jacinto Munoz DO PCP: April Mullen MD Status:REG [facility] Patient Name: Daryn Guillermo Procedure Date: 10/28/2024 [...] present medications. Procedure Code(s): --- Professional --- 45993, Small intestinal endoscopy, enteroscopy beyond second portion of duodenum, not including ileum; with biopsy, single or multiple CPT copyright 2022 [employer]. All rights reserved. The codes documented in this report are preliminary and upon medical records coder review may be revised to meet current compliance requirements. Jacinto Munoz DO 10/28/2024 12:20:01 PM This report has been signed electronically. Number of Addenda: 0 Note Initiated On: 10/28/2024 11:31 AM 10/28/24 1220 Date _ Jacinto Munoz DO Cosigner Signature: Date (if indicated) CC: April Mullen MD; Jacinto Munoz DO ~ Date Dictated: 10/28/24 1131 Date Transcribed: Mechanical Systems Engineer: RF Signed [facility]07-22-2025 Procedure note [facility] Medical Records Department [address] [place] [address] Operative Report - CC Letter MR#: [id number] Acct: [id number] Name: DARYN GUILLERMO Rep #:[id number] : 1945 78 From: Jacinto Munoz DO PCP: April Mullen MD Status:REG [facility] 10/28/2024 April Mullen Md Re : Upper [...] ~ Date Dictated: 10/28/24 1131 Date Transcribed: Mechanical Systems Engineer: RF Signed [facility]07-22-2025 History and physical note [facility] Medical Records Department [address] [place] [address] History & Physical Exam 10/28/24 1144 MR#: [id number] Acct: [id number] Name: DARYN GUILLERMO BLANE Rep #:[id number] 1 : 1945 78 From: Jacinto Munoz DO PCP: April Mullen MD Status:[facility] Location: [place] [address] HPI - General General Date of Admission: 10/28/24 Date of Service: 10/28/24 Chief Complaint: Anemia HPI Narrative DARYN GUILLERMO, is a 78 F who presents with Chief Complaint: anemia [facility] ED 12.4.24 with low Hgb 6.9 BGI [...] Resected and retrieved. Clip was placed. Clip windows application packager: Jada Beauty. OV 4.24.25 Pt here today to review results of endoscopy. She has no GI complaints. She denies dark or tarry stools. She continues with pantoprazole 40 mg daily and iron. She is having a bm every 2-3 days and feels mild constipationfrom the iron. Last hgb 11.4 (4.15.25). [facility] Medical History Post-menopausal History of ulceration Gastric [...] April Mullen MD; Jacinto Friend, DO~ Signed [facility]07[facility]22[facility]20[facility] Consult note [facility] Medical Records Department [address] [place] [address] Pre-Anesthesia Evaluation 10/28/24 1130 MR#: [id number] Acct: [id number] Name: DARYN GUILLERMO BLANE Rep #:[id number] 0 : 1945 78 From: Jurgen Licea PCP: April Mullen MD Status:REG SD Y Race: C Location: [place] [address] ASA Classification* ASA Classification ASA Classification: 4 [...] Procedure(s): EGD Anesthesia History Anesthesia History - sound tester: Anesthesia History - sound tester Hx Hospitalization Yes: [facility] 10/21/24 08:35 Any [...] take am of surgery PONV PONV - sound tester: PONV - sound tester Female Yes 10/21/24 08:35 HX of Motion [...] 10/28/24 10:53 Respiratory Assessment Respiratory Assessment - sound tester: Respiratory Tract Infection Hx - sound tester Hx Respiratory Tract Infection No 10/21/24 08:35 STOP Sleep Apnea STOP Sleep Apnea - sound tester: STOP Sleep Apnea - sound tester Hx Hypertension Yes 10/21/24 08:35 Hx Sleep [...] Tobacco Use History Tobacco Use History - sound tester: Tobacco Use History - sound tester Tobacco Use Smoking Status Never smoker 10/21/24 08:35 Hx Tobacco Use No 10/21/24 08:35 Years Smoking Packs Smoked per Day Smoking Cessation Date was within the last 15 years Hx Smoking Cessation Date Hx Smoking Cessation Counseling Hematologic Medial History Hematologic Hx - sound tester: Hematologic Medical Hx - steward/stewardess deck Hx of Blood Transfusion No 10/21/24 08:35 Hx of Transfusion in last 3 No 10/21/24 08:35 Months Date of Last Transfusion (if within last 3 months) Ever experience any problems No 10/21/24 08:35 with transfusion(s)? Specify any problems Hx of Preganancy in last 3 No 10/21/24 08:35 Months Nurse Filling Out Transfusion [facility] 10/21/24 08:35 & Questions: Date: 10/21/24 10/21/24 08:35 Time: 08:37 10/21/24 08:35 Patient unable to answer at this time (ie. confused, unrespo /Reproduction History /Reproductive History - sound tester: /Reproductive Hx- sound tester Hx Now No 10/21/24 08:35 Gestational Age [...] (Reviewed 10/09/24 @ 15:04 by Yennifer Pemberton FINANCIAL SALES PROFESSIONAL, FINANCIAL SALES PROFESSIONAL-C) Mother Alzheimer dementia Breast cancer Heart disease Brother Cystic fibrosis Surgical History (Reviewed 10/09/24 @ 15:04 by Yennifer Pemberton FINANCIAL SALES PROFESSIONAL, FINANCIAL SALES PROFESSIONAL-C) History of colonoscopy S/P laminectomy History of tubal ligation Hx of cholecystectomy H/O section Social History (Reviewed 10/09/24 @ 15:04 by Yennifer Pemberton FINANCIAL SALES PROFESSIONAL, FINANCIAL SALES PROFESSIONAL-C) Smoking Status: Never smoker alcohol intake: never Review of Systems (Anesthesia) ROS Narrative System reviewed and no additional complaints, except as documented. 10/28/24 1134 > Date _ Jurgen Acevedo Signature: Date CC: ~ Signed [facility]06-13-2025 Telephone encounter Note* Telephone Encounter - Gamaliel Hess MA - 09/19/2024 3:56 PM EDT Spoke with nurse at [facility] [phone], [address] They're unable to arrange transportation for 09/24/24 office visit and reschedule to 11/12/24 10:30am. I faxed appt reminder with our address on it to [phone]. [facility]06-13-2025 Miscellaneous Notes* Telephone Encounter - Gamaliel Hess MA - 09/19/2024 3:56 PM EDT Spoke with nurse at [facility] [phone], [address]. They're unable to arrange transportation for 09/24/24 office visit and reschedule to 11/12/24 10:30am. I faxed appt reminder with our address on it to [phone]. * Telephone Encounter - Laurent Jurado APRN.CNP - 09/19/2024 3:21 PM EDT Images from the original note were not included. TAVR clinic referral received from Dr. Milo Mendoza. Chart reviewed, scanned records and imaging appreciated. 78 yo female with PMHx that includes HFrEF, a fib (previously on xarelto), DM, renal disease, anemia, anxiety/depression, OM, OA, GIB, PUD, COPD. Resides at [facility] since 6 months ago.Wheelchair bound, does stand for brief transfers with assist. Notes she gave up will to live about 5 years ago due to frustrations with family situations, and just had gradual debilitation. 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 Of note rivaraxoban was stopped prior due [...] 24 at 1030 - 1000 arrival - [facility], silver elevators, 3rd floor She would like to take appt and is going to speak with her charge nurse to inquire on transportation arrangements. ECHO 08/13/24 Mean/peak 40? 1+ AI EF 40-45% Laurent Jurado APRN.PALOMA documented in this encounterFirelands [facility]06-[facility]-2025 Telephone encounter Note * Telephone Encounter - Laurent Jurado APRN.CNP - 09/19/2024 3:21 PM EDT Images from the original note were not included. TAVR clinic referral received from Dr. Milo Mendoza. Chart reviewed, scanned records and imaging appreciated. 78 yo female with PMHx that includes HFrEF, a fib (previously on xarelto), DM, renal disease, anemia, anxiety/depression, OM, OA, GIB, PUD, COPD. Resides at [facility] since 6 months ago.Wheelchair bound, does stand for brief transfers with assist. Notes she gave up will to live about 5 years ago due to frustrations with family situations, and just had gradual debilitation. 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 Of note rivaraxoban was stopped prior due [...] 24 at 1030 - 1000 arrival - [facility], addison elevators, 3rd floor She would like to take appt and is going to speak with her charge nurse to inquire on transportation arrangements. ECHO 08/13/24 Mean/peak 40? 1+ AI EF 40-45% Laurent Jurado APRN.PALOMA [facility]06-11-2025 Telephone encounter Note* Telephone Encounter - Pearl Dutta - 09/17/2024 3:47 PM EDT Referral received and scanned to chart. Fax request was sent to [facility] requesting images and reports. A message was also sent to Laurent Jurado CNP in regards to the referral. Non-rheumatic aortic valve stenosis (possible TAVR candidate). [facility]06-11-2025 Miscellaneous Notes* Telephone Encounter - Pearl Dutta - 09/17/2024 3:47 PM EDT Referral received and scanned to chart. Fax request was sent to [facility] requesting images and reports. A message was also sent to Laurent Jurado CNP in regards to the referral. Non-rheumatic aortic valve stenosis (possible TAVR candidate). documented in this encounterFirelands [facility]04-16-2025 Evaluation note* Diagnosis Onset Date Resolution Status [...] 7:47am CHF exacerbation chronic November 092024 7:47am [facility] Work Phone: 1(370) 282-453304-16-2025 Evaluation note* Diagnosis Onset Date Resolution Status [...] ejection fraction) chronic November 09, 2024 7:47am [facility] Work Phone: 1(280) 138-747003-25-2025 History and physical note Author Jacinto Friend [facility] Note Date/Time July 01, 2024 12: 39pm [facility] Medical Records Department [address] [place] [address] History & Physical Exam 07/01/24 1237 MR#: [id number] Acct: [id number] Name: DARYN GUILLERMO BLANE Rep #:[id number] : 1945 78 From: Jacinto Munoz DO PCP: April uMllen MD Status:REG [facility] Location: [place] [address]-1 HPI - General General Date of Admission: [...] she also reports prior to admission to [facility] she had 30-40lb of peripheral [...] - CKD (GFR 52) - Easy bruising [facility] Medical History (Updated 07/01/24 @ 12:39 by [...] 4. Colonoscopy and EGD - scheduled at [facility] with Dr. Munoz (Golyte bowel prep) 5. Follow-up in the office 1-2 weeks post procedure 07/01/24 1239 <Electronically signed by Jacinto Munoz DO> Cosigner Signature (if applicable): CC: April Mullen MD; Jacinto Munoz DO~ Signed [facility] Work Phone: 1(964) 434-983103-25-2025 Consult note Author Manuel Campuzano [facility] Note Date/Time July 01, 2024 12: 33pm [facility] Medical Records Department [address] [place] [address] Pre-Anesthesia Evaluation 07/01/24 1219 MR#: [id number] Acct: [id number] Name: DARYN GUILLERMO Rep #:[id number] : 1945 78 From: Manuel Campuzano MD PCP: April Mullen MD Status:REG [facility] Y Race: C Location: [place] [address] ASA Classification* ASA Classification ASA Classification: 3 [...] Procedure(s): CSCOPE/EGD Anesthesia History Anesthesia History - sound tester: Anesthesia History - sound tester Hx Hospitalization Yes: 12/2023 PNEUMONIA AND 06/30/24 [...] sips of water?: No PONV PONV - sound tester: PONV - sound tester Female Yes 06/30/24 11:18 HX of Motion [...] 07/01/24 11:58 Respiratory Assessment Respiratory Assessment - sound tester: Respiratory Tract Infection Hx - sound tester Hx Respiratory Tract Infection No 06/30/24 11:18 STOP Sleep Apnea STOP Sleep Apnea - sound tester: STOP Sleep Apnea - sound tester Hx Hypertension Yes 06/30/24 11:18 Hx Sleep [...] Tobacco Use History Tobacco Use History - sound tester: Tobacco Use History - sound tester Tobacco Use Smoking Status Never smoker 06/30/24 11:18 Hx Tobacco Use No 06/30/24 11:18 Years Smoking Packs Smoked per Day Smoking Cessation Date was within the last 15 years Hx Smoking Cessation Date Hx Smoking Cessation Counseling Hematologic Medial History Hematologic Hx - sound tester: Hematologic Medical Hx - steward/stewardess deck Hx of Blood Transfusion No 06/30/24 11:18 [...] confused, unrespo /Reproduction History /Reproductive History - sound tester: /Reproductive Hx- sound tester Hx Now No 06/30/24 11:18 Gestational Age [...] MD Cosigner Signature: Date CC: ~ Signed [facility] Work Phone: 1(487) 562-178103-25-2025 Procedure note [facility] Medical Records Department [address] [place] [address] Colonoscopy Report MR#: [id number] Acct: [id number] Name: DARYN GUILLERMO Rep #:[id number] : 1945 78 From: Jacinto Munoz DO PCP: April Mullen MD Status:REG [facility] Patient Name: Daryn Guillermo Procedure Date: 07/01/2024 [...] one hemostatic clip was successfully placed. Clip windows application packager: Jada Beauty. There was no bleeding at the end of the procedure. Impression: - Diverticulosis in the recto-sigmoid colon, in the sigmoid colon and in the descending colon. - One 20 mm polyp in the cecum, removed with a hot snare. Resected and retrieved. Clip was placed. Clip windows application packager: Jada Beauty. Recommendation: - Repeat colonoscopy in 3 years for surveillance. - Continue present medications. Procedure Code(s): --- Professional --- 63512, Colonoscopy, flexible; with removal of tumor(s), polyp(s), or other lesion(s) by snare technique CPT copyright 2021 [employer]. All rights reserved. The codes documented in this report are preliminary and upon medical records coder review may be revised to meet current compliance requirements. Jacinto Munoz DO 07/01/2024 2:07:31 PM This report has been signed electronically. Number of Addenda: 0 Note Initiated On: 07/01/2024 1:21 PM 07/01/24 1407 Date _ Jacinto Harper Signature: Date (if indicated) CC: April Mullen MD; Jacinto Munoz DO ~ Date Dictated: 07/01/24 1321 Date Transcribed: Mechanical Systems Engineer: ADAMA Signed [facility]03-25-2025 Procedure note [facility] Medical Records Department [address] [place] [address] Operative Report - CC Letter MR#: [id number] Acct: [id number] Name: DARYN GUILLERMO Rep #:[id number] : 1945 78 From: Jacinto Munoz DO PCP: April Mullen MD Status:REG [facility] 07/01/2024 April Mullen Md Re [...] Resected and retrieved. Clip was placed. Clip windows application packager: Jada Beauty. Recommendations : - Repeat colonoscopy in 3 [...] ~ Date Dictated: 07/01/24 1321 Date Transcribed: Mechanical Systems Engineer: RF Signed [facility]03-25-2025 Consult note [facility] Medical Records Department [address] [place] [address] Anesthesia Postop Eval I 07/01/24 1406 MR#: [id number] Acct: [id number] Name: DARYN GUILLERMO Rep #:[id number] : 1945 78 From: Jones Greer PCP: April Mullen MD Status:REG [facility] Y Race: C Location: [place] [address] Anesthesia: Postop Eval I Current Vital Signs [...] Jones Acevedo Signature: Date CC: ~ Signed [facility]03-25-2025 Procedure note [facility] Medical Records Department [address] [place] [address] EGD Report MR#: [id number] Acct: [id number] Name: DARYN GUILLERMO BLANE Rep #:[id number] : 1945 78 From: Jacinto Munoz DO PCP: April Mullen MD Status:REG [facility] Patient Name: Daryn Guillermo Procedure Date: 07/01/2024 [...] check healing. Procedure Code(s): --- Professional --- 40890, Small intestinal endoscopy, enteroscopy beyond second portion of duodenum, not including ileum; with biopsy, single or multiple CPT copyright 2021 [employer]. All rights reserved. The codes documented in this report are preliminary and upon medical records coder review may be revised to meet current compliance requirements. Jacinto Munoz DO 07/01/2024 2:05:15 PM This report has been signed electronically. Number of Addenda: 0 Note Initiated On: 07/01/2024 1:01 PM 07/01/24 1405 Date _ Jacinto Munoz DO Cosigner Signature: Date (if indicated) CC: April Mullen MD; Jacinto Munoz DO ~ Date Dictated: 07/01/24 1301 Date Transcribed: Mechanical Systems Engineer: RF Signed [facility]03-25-2025 Procedure note [facility] Medical Records Department [address] [place] [address] Operative Report - CC Letter MR#: [id number] Acct: [id number] Name: DARYN GUILLERMO BLANE Rep #:[id number] : 1945 78 From: Jacinto Munoz DO PCP: April Mullen MD Status:[facility] 07/01/2024 April Mullen Md Re [...] ~ Date Dictated: 07/01/24 1301 Date Transcribed: Mechanical Systems Engineer: ADAMA Sterling [facility]03-25-2025 Evaluation note* Diagnosis Onset Date Resolution [...] 2024 2:38pm Hypertension chronic October 09 2:38pm [facility] Work Phone: 1(726) [phone] Evaluation note* Diagnosis Onset Date Resolution Status [...] Gastric ulcer acute October 28, 2024 10:27am [facility] Work Phone: 1(346) 733-207503-25-2025 History and physical note [facility] Medical Records Department [address] [place] [address] History & Physical Exam 07/01/24 1237 MR#: [id number] Acct: [id number] Name: DARYN GUILLERMO BLANE Rep #:[id number] : 1945 78 From: Jacinto Munoz DO PCP: April Mullen MD Status:[facility] Location: [place] [address] HPI - General General Date of Admission: [...] she also reports prior to admission to [facility] she had 30-40lb of peripheral [...] - CKD (GFR 52) - Easy bruising [facility] Medical History (Updated 07/01/24 @ 12:39 by [...] 4. Colonoscopy and EGD - scheduled at [facility] with Dr. Munoz (Golyte bowel prep) 5. Follow-up in the office 1-2 weeks post procedure 07/01/24 1239 Cosigner Signature (if applicable): CC: April Mullen MD; Jacinto Munoz DO~ Signed [facility]03[facility]25[facility] Consult note [facility] Medical Records Department [address] [place] [address] Pre-Anesthesia Evaluation 07/01/24 1219 MR#: [id number] Acct: [id number] Name: DARYN GUILLERMO Rep #:[id number] 0 : 1945 78 From: Manuel Campuzano MD PCP: April Mullen MD Status:REG [facility] Y Race: C Location: [place] [address] ASA Classification* ASA Classification ASA Classification: 3 [...] Procedure(s): CSCOPE/EGD Anesthesia History Anesthesia History - sound tester: Anesthesia History - sound tester Hx Hospitalization Yes: 12/2023 PNEUMONIA AND 06/30/24 [...] sips of water?: No PONV PONV - sound tester: PONV - sound tester Female Yes 06/30/24 11:18 HX of Motion [...] 07/01/24 11:58 Respiratory Assessment Respiratory Assessment - sound tester: Respiratory Tract Infection Hx - sound tester Hx Respiratory Tract Infection No 06/30/24 11:18 STOP Sleep Apnea STOP Sleep Apnea - sound tester: STOP Sleep Apnea - sound tester Hx Hypertension Yes 06/30/24 11:18 Hx Sleep [...] Tobacco Use History Tobacco Use History - sound tester: Tobacco Use History - sound tester Tobacco Use Smoking Status Never smoker 06/30/24 11:18 Hx Tobacco Use No 06/30/24 11:18 Years Smoking Packs Smoked per Day Smoking Cessation Date was within the last 15 years Hx Smoking Cessation Date Hx Smoking Cessation Counseling Hematologic Medial History Hematologic Hx - sound tester: Hematologic Medical Hx - steward/stewardess deck Hx of Blood Transfusion No 06/30/24 11:18 [...] confused, unrespo /Reproduction History /Reproductive History - sound tester: /Reproductive Hx- sound tester Hx Now No 06/30/24 11:18 Gestational Age (in weeks): EDC: Hx Hx Para Hx Section SAB No 06/30/24 11:18 [facility] Medical History Lives in snf Wears glasses [...] MD Cosigner Signature: Date CC: ~ Signed [facility]01-20-2025 Evaluation note* Diagnosis Onset Date Resolution Status Admit Date Anemia noneactive April 28, 2024 10:28am [facility] Work Phone: 1(471) 118-562701-20-2025 Evaluation note* Diagnosis Onset Date Resolution Status Admit Date Anemia noneactive April 28, 2024 10:28am Anemia acute July 01 11:19am [facility] Work Phone: 1(152) 835-110001-20-2025 Evaluation note* Diagnosis Onset Date Resolution Status Admit Date Anemia noneactive April 28, 2024 10:28am Anemia acute July 01 11:19am A-fib chronic July 23 10:52am Chronic HFrEF (heart failure with reduced ejection fraction) chronic July 23, 2024 10:52am Diabetes chronic July 23 10:52am Hypertension chronic July 23, 2024 10:52am Anemia acute July 31 8:52am Gastric ulcer acute July 31, 2024 8:52am [facility] Work Phone: 1(144) 896-681811-21-2024 History of Present illness Narrative* Braulio Oneil MD PhD - 02/28/2024 10:00 AM EST Images from the original note were not included. [facility] [place] Department of Neurological Surgery Post Operative Patient [...] Sincerely, Braulio Oneil MD PhD Attending Neurosurgeon [facility] Service Advocate Contact of Neurological Surgery [facility] [address] [facility] [address] [place] [address] [facility] [address] [address] [facility] [address] [place] [address] Office: documented in this [facility] Work Phone: 1(752) 240-938010-08-2024 History of Present illness Narrative* Megan Osorio, [...] that time she had been admitted to [facility] for AMS and is now returned to her facility. They are sending discharge paperwork and recent vanc trough, CBC, CMP. Reports having COVID and PNA at OSH. Reports she was continuing to get her IV abx at [facility]. Was in quarantine for a while at the rehab. Now back in her old room and feels at home. Was told she had a weak heart, and is looking into getting a translator interpreter for her Afib. Biggest regret is feels [...] ceftriaxone today. No back pain while at [facility]. Also spoke popeye/ Yony, wound nurse, confirmed incision is healed and intact. Records faxed from her recent hospitalization at [facility], admitted from 12/30 to ~01/06 for AMS, [...] needed Megan Osorio DO documented in this [facility] Work Phone: 1(956) 747-730810-01-2024 [facility]09-18-2024 History of Present illness Narrative* Megan Osorio [...] plans are to stay at the facility emt intermediate as she enjoys it there and feels [...] results Megan Osorio DO documented in this [facility] Work Phone: 1(159) 282-841808-27-2024 History of Present illness Narrative* Eliza Alonso PA-C - 12/04/2023 10:00 AM EDT Images from the original note were not included. [facility] [place] Department of Neurological Surgery Post Operative Patient [...] surgical incision with good fibrotic tissue spanning. [place] removed at visit today with patient tolerating [...] directly. Sincerely, JANAK Tian PA-C Associate Physician Audio Narrator, Neurosurgery Clinical Service Advocate Contact [facility] [place] [address] documented in this [facility] Work Phone: 1(517) [phone] Nurse Note* Ramos Phillip RN - 11/20/2023 [...] reach. Wolf Arellano LPN [facility] Work Phone: 1(426) 544-679108-13-2024 History of Present illness Narrative* Ansley Anthony - 11/20/2023 1:37 PM EDT Spiritual Care Visit Clinical Encounter Type Visited With: Patient Routine Visit: Follow-up Continue Visiting: Yes Surgical Visit: Post-op Referral From: Nurse, Family, Patient Referral To: Site Damage Prevention Technician Yazidi Encounters Yazidi Needs: Prayer Values/Beliefs Cultural Requests During Hospitalization: [...] (Level of Unmet Needs) Existential Struggle: Some Spiritual/Yazidi Struggle: Some Legacy: Some Relationships: Some Fear [...] calming presence Methods: Offer emotional support, Offer spiritual/sabianism support, Offer support Interventions: Active listening, Assist with identifying strengths, Discuss concerns, Facilitate life review, Prayer for healing Follow up spiritual care visit with patient this morning. Patient engaged inter com installer in life review and story telling. Pt has some grief and loss that she is working through. Patient shared her feelings and concerns and hopes. Site Damage Prevention Technician listened and provided support, companionship, prayer and listening. Patient may be discharged today. Site Damage Prevention Technician will continue to see her if that [...] Linda Grace PharmD * Sophie Blair James, VISCERA WASHER-LINEN ROOM SUPERVISOR - 11/20/2023 9:42 AM EDT Subjective Patient endorses feelings of depression. She states she is depressed but this is nothing new. Shestates it wouldn't be the worst thing if I , but she denies suicidal ideation and is thinkingabout plans to reconnect with her jehovah's witness and is interested in looking a senior [employer] for socialization. She agrees with the plan to increase Effexor dose. She is hopeful her strength will improve wh ile at rehab. She expresses concern for her son who is currently hospitalized. Site Damage Prevention Technician is seeing patient today as well. Patient [...] tablet 2,000 Units 2,000 Units oral Daily Givoanna Coles MD 2,000 Units at 11/20/23 0930 [...] Results Component Value Date TSH 0.45 11/19/2023 [id number] 374 11/19/2023 VITD25 51 11/19/2023 HGBA1C 7.2 [...] PLACEMENT. COMPARISON: 11/13/2023 chest radiograph ACCESSION NUMBER(S): [id number] ORDERING CLINICIAN: RU SANTOS FINDINGS: AP radiograph [...] as stated. This study was interpreted at [facility], [place], [place]. MACRO: None Signed by: Pastor Barrientos 11/17/2023 6:46 AM Dictation workstation: [id number] DATA: EKG: QTC Encounter Date: 11/09/23 ECG 12 Lead Result Value Ventricular Rate 73 Atrial Rate 73 WV Interval 196 QRS Duration 106 QT Interval 384 QTC Calculation(Bazett) 423 P Lodi -24 R Lodi -46 T Lodi -41 QRS Count 12 Q Onset 205 [...] 0 Mobility: Patient is wheelchair bound [facility] Geriatric medicine will continue to follow the patient. Thank you for allowing geriatric medicine to be involved in the care of your patient. Geriatric medicine consultation team is available during work hours Sunday through Sunday. For any emergency issues requiring immediate assistance over the weekend, please page Geriatrics pager [phone] MACARENA Richardson * Elias Elyse - 11/20/2023 [...] Value Ventricular Rate 73 Atrial Rate 73 WV Interval 196 QRS Duration 106 QT Interval 384 QTC Calculation(Bazett) 423 P Lodi -24 R Lodi -46 T Lodi -41 QRS Count 12 Q Onset 205 [...] as stated. This study was interpreted at [place], [place]. MACRO: None Signed by: Pastor Barrientos 11/17/2023 6:46 AM Dictation workstation: [id number] CT guided percutaneous biopsy bone deep Result Date: 11/14/[address]-guided biopsy of the T7 vertebra. Specimens were sent to pathology/laboratory per requesting team. I was present for the entirety of the procedure as detailed above. I personally reviewed the images/study and I agree with the findings as stated by Justin Gatica MD. This study was interpreted at [place], [place]. MACRO: None Signed by: Caron Donaldson 11/14/2023 8:11 AM Dictation workstation: [id number] XR chest 1 view Result Date: 11/14/2023 1. No acute abnormality of the chest. 2. Mild retrocardiac and left basilar atelectasis. I personally reviewed the image(s)/study and resident interpretation as stated by Dr. Tiffanie Healy MD. I agree with the findings as stated. This study was interpreted at [place], [place]. MACRO: None Signed by: Bunny Asher 11/14/2023 7:48 AM Dictation workstation: [id number] MR lumbar spine w and wo IV [...] as stated. This study was interpreted at [place], [place]. MACRO: None Signed by: Lynda Bal 11/06/2023 1:29 PM Dictation workstation: [id number] MR thoracic spine w and wo IV [...] Lynda Bal 11/06/2023 1:24 PM Dictation workstation: [id number] MR cervical spine w and wo IV contrast Result Date: 11/06/2023 The examination is moderately degraded by patient motion artifact. Within this limitation, no evidence of focal osseous metastatic disease. No definite abnormal signal or enhancement within the cervical cord. Multilevel degenerative changes as detailed above. MACRO: None Signed by: Lynda Bal 11/06/2023 1:10 PM Dictation workstation: [id number] CT chest abdomen pelvis wo IV contrast [...] 8 of admission as a transfer from [facility] to [facility] for evaluation of back pain likely [...] - inc effexor to 112.5, music therapy, inter com installer services -Working on dispo -Drains removed by [...] is some anxiety related to son's (primary devulcanizer tender) health condition and when she can return [...] SHABBIR GUILLERMO Address: [address] [place] [phone] [facility] Mobile Relation: Son Preferred language: [place] Hydraulic Pile Hammer Operator needed? No Secondary Emergency Contact: Rissa GUILLERMO Address: [address] [place] [phone] [facility] Mobile Relation: Son Preferred language: [place] Hydraulic Pile Hammer Operator needed? No Elias Pappas, MS4 11/20/2023 [...] Payer: [employer] Status: Inpatient Discharge disposition: [facility] Potential Barriers: none ADOD: 11/19 Secure chat sent to direct submit team to initiate precert. Per [facility] we have to complete pre-cert on our end as we our devoted contract is through [facility]. Please send therapy notes so we are able to start. Precert team confirmed precert has already been started and they will send over [facility], facility updated. Nolic/discharge orders requested from the team for 7000 form. educational technology coordinator will continue to follow for discharge planning needs. Kay Putnam RN Transitional Commercial Underwriter/TCC [id number] * Alonzo Antony OT - 11/19/2023 2:31 [...] at the side of the bed. Outcome Measures:[facility] Daily Activity Putting on and taking off [...] 1: cues for log roll Outcome Measures: [facility] Basic Mobility Turning from your back to [...] Value Ventricular Rate 73 Atrial Rate 73 WV Interval 196 QRS Duration 106 QT Interval 384 QTC Calculation(Bazett) 423 P Lodi -24 R Lodi -46 T Lodi -41 QRS Count 12 Q Onset 205 [...] as stated. This study was interpreted at [place], [place]. MACRO: None Signed by: Frankchetira Daronlindsay Barrientos 11/17/2023 6:46 AM Dictation workstation: [id number] CT guided percutaneous biopsy bone deep Result Date: 11/14/[address]-guided biopsy of the T7 vertebra. Specimens were sent to pathology/laboratory per requesting team. I was present for the entirety of the procedure as detailed above. I personally reviewed the images/study and I agree with the findings as stated by Justin Gatica MD. This study was interpreted at [place], [place]. MACRO: None Signed by: Caron Donaldson 11/14/2023 8:11 AM Dictation workstation: [id number] XR chest 1 view Result Date: 11/14/2023 1. No acute abnormality of the chest. 2. Mild retrocardiac and left basilar atelectasis. I personally reviewed the image(s)/study and resident interpretation as stated by Dr. Tiffanie Healy MD. I agree with the findings as stated. This study was interpreted at [place], [place]. MACRO: None Signed by: Bunny Asher 11/14/2023 7:48 AM Dictation workstation: [id number] MR lumbar spine w and wo IV [...] as stated. This study was interpreted at [place], [place]. MACRO: None Signed by: Lynda Bal 11/06/2023 1:29 PM Dictation workstation: [id number] MR thoracic spine w and wo IV [...] Lynda Bal 11/06/2023 1:24 PM Dictation workstation: [id number] MR cervical spine w and wo IV contrast Result Date: 11/06/2023 The examination is moderately degraded by patient motion artifact. Within this limitation, no evidence of focal osseous metastatic disease. No definite abnormal signal or enhancement within the cervical cord. Multilevel degenerative changes as detailed above. MACRO: None Signed by: Lynda Bal 11/06/2023 1:10 PM Dictation workstation: [id number] CT chest abdomen pelvis wo IV contrast [...] 8 of admission as a transfer from [facility] to [facility] for evaluation of back pain likely [...] is some anxiety related to son's (primary devulcanizer tender) health condition and when she can return [...] SHABBIR GUILLERMO Address: [address] [place] [phone] [facility] Mobile Relation: Son Preferred language: [place] Hydraulic Pile Hammer Operator needed? No Secondary Emergency Contact: Rissa GUILLERMO Address: [address] [place] [phone] [facility] Mobile Relation: Son Preferred language: [place] Hydraulic Pile Hammer Operator needed? No Elias Pappas, MS4 11/19/2023 [...] personal situation. Awaiting placement. * Hayley Meléndez, ATMOSPHERIC SCIENCES PROFESSOR - 11/18/2023 7:56 PM EDT Recreation Therapy [...] RN - 11/18/2023 3:31 PM EDT Transitional Commercial Underwriter Progress Note: Pt is medically ready for discharge to SNF. Reviewed SNF referral results with pt. FOC is [facility]. SNF was notified they are FOC. Requested updated therapy notes for tomorrow. SNF will initiate precert once updated therapy notes are received. educational technology coordinator will continue to follow for discharge planning needs. Opal LUNA, RN- Transitional Commercial Underwriter (TCC) [phone] * Terry Lyons MD - 11/18/2023 9:05 [...] to follow Terry Lyons MD * Thomas Hfofman MD - 11/17/2023 12:32 PM EDT Progress [...] Value Ventricular Rate 73 Atrial Rate 73 WV Interval 196 QRS Duration 106 QT Interval 384 QTC Calculation(Bazett) 423 P Lodi -24 R Lodi -46 T Lodi -41 QRS Count 12 Q Onset 205 [...] as stated. This study was interpreted at [place], [place]. MACRO: None Signed by: Pastor Barrientos 11/17/2023 6:46 AM Dictation workstation: [id number] CT guided percutaneous biopsy bone deep Result Date: 11/14/[address]-guided biopsy of the T7 vertebra. Specimens were sent to pathology/laboratory per requesting team. I was present for the entirety of the procedure as detailed above. I personally reviewed the images/study and I agree with the findings as stated by Justin Gatica MD. This study was interpreted at [place], [place]. MACRO: None Signed by: Caron Donaldson 11/14/2023 8:11 AM Dictation workstation: [id number] XR chest 1 view Result Date: 11/14/2023 1. No acute abnormality of the chest. 2. Mild retrocardiac and left basilar atelectasis. I personally reviewed the image(s)/study and resident interpretation as stated by Dr. Tiffanie Healy MD. I agree with the findings as stated. This study was interpreted at [place], [place]. MACRO: None Signed by: Bunny Asher 11/14/2023 7:48 AM Dictation workstation: [id number] MR lumbar spine w and wo IV [...] as stated. This study was interpreted at [place], [place]. MACRO: None Signed by: Lynda Bal 11/06/2023 1:29 PM Dictation workstation: [id number] MR thoracic spine w and wo IV [...] Lynda Bal 11/06/2023 1:24 PM Dictation workstation: [id number] MR cervical spine w and wo IV contrast Result Date: 11/06/2023 The examination is moderately degraded by patient motion artifact. Within this limitation, no evidence of focal osseous metastatic disease. No definite abnormal signal or enhancement within the cervical cord. Multilevel degenerative changes as detailed above. MACRO: None Signed by: Lynda Bal 11/06/2023 1:10 PM Dictation workstation: [id number] CT chest abdomen pelvis wo IV contrast [...] 8 of admission as a transfer from [facility] to [facility] for evaluation of back pain likely [...] Information Primary Emergency Contact: SHABBIR GUILLERMO Address: [address] [place] [phone] [facility] Mobile Relation: Son Preferred language: [place] Hydraulic Pile Hammer Operator needed? No Secondary Emergency Contact: Rissa GUILLERMO Address: [address] [place] [phone] [facility] Mobile Relation: Son Preferred language: [place] Hydraulic Pile Hammer Operator needed? No Thomas Hoffman MD, MSc [...] (Rehab/SNF/etc) Type of Post Acute Facility Services detention Expected Discharge Disposition SNF Does the patient [...] were you homeless or living in a custodial (including now)? N Transportation Needs In the [...] Met with pt and introduced myself as day care assistant and member of the Care Transitions team [...] and other house hold items delivered from [employer]. Pt denies any falls. Pt stated she feels safe at home. Pt's address, phone number, and contact information was verified. Pt denies any social or financial concerns at this time. Home care: Yes Agency: [facility] [phone] Disciplines: Nurse came 1x to check vitals. DME: cane, walker, hospital bed. correctional manager: none. PCP: Huan Gilman MD Last appt: Pt does a lot of virtual visits Transport to appts: Son Eva provides (they have a wheelchair accessible van). Pharm: [employer] mail order (denies issues affording/obtaining medications) Discharge Planning: Pt s/p OR for laminectomy with Neurosurgery team, awaiting final IV abx recs however, team anticipate pt will discharge on 6 week course of IV abx with tentative stop date of 12/25. Pt stated she recently discharged AMA from [facility] (she was there x20 days) because her [...] the following SNF's: [facility] Referrals sent to above facilities via Careport to see if they can accept. Precert will be requiredprior to discharge. educational technology coordinator will continue to follow for discharge planning needs. Kay Putnam RN Transitional Commercial Underwriter/TCC [id number] * Ru Santos MD - 11/16/2023 1:19 PM EDT [...] undetermined Abnormal ECG Confirmed by Fabio Bee ([id number]) on 11/15/2023 2:34:28 PM No results found for this or any previous visit from the past 1095 days. Encounter Date: 11/09/23 ECG 12 Lead Result Value Ventricular Rate 73 Atrial Rate 73 WV Interval 196 QRS Duration 106 QT Interval 384 QTC Calculation(Bazett) 423 P Lodi -24 R Lodi -46 T Lodi -41 QRS Count 12 Q Onset 205 P Onset 107 P Offset 148 T Offset 397 QTC Fredericia 410 Narrative Atrial fibrillation Left axis deviation Low voltage QRS Cannot rule out Anterior infarct , age undetermined Abnormal ECG Confirmed by Fabio Bee ([id number]) on 11/15/2023 2:34:28 PM Assessment and Plan [...] Of note the above was done with [employer] dictation system. Note was proofread to minimize [...] trough, CRP weekly and fax results to [phone] ATTN: Dr. Osorio - Will arrange outpt ID follow up Will follow peripherally for final OR cultures, please reach out w/ questions and when pt is ready for discharge Megan Osorio DO Epic Chat or pager [phone] * TANIA Epperson - 11/15/2023 3:01 PM [...] Value Ventricular Rate 73 Atrial Rate 73 WV Interval 196 QRS Duration 106 QT Interval 384 QTC Calculation(Bazett) 423 P Lodi -24 R Lodi -46 T Lodi -41 QRS Count 12 Q Onset 205 [...] Of note the above was done with [employer] system. Note was proofread to minimize errors. [...] Shower/Tub: (sponge bathes) Prior Function: Level of [place]: Independent with ADLs and functional transfers, Needs assistance with homemaking (Sponge bath at baseline. Uses a bedpan at baseline does not transfer to the toilet.) Receives Help From: Family ADL Assistance: Independent (sponge bathes) Homemaking Assistance: (son completes) Ambulatory Assistance: (pt reports non-ambulatory and has not stood in a long time. pt reports she slides to [employer] (not with board)) IADL History: ADL: Eating [...] Moderate assistance, +2 Bed Mobility Comments 1: Jtpd-eu-optf instructions provided for log rolling technique, with [...] LUE LUE: Within Functional Limits Outcome Measures: [facility] Daily Activity Putting on and taking off [...] to attempt to meet with pt another time.educational technology coordinator will continue to follow for discharge planning needs. Kay Putnam RN Transitional Commercial Underwriter/TCC [id number] * Elias Pappas - 11/14/2023 10:27 AM [...] and CT thoracic spine 11/06/2023. ACCESSION NUMBER(S): [id number] ORDERING CLINICIAN: RU SANTOS TECHNIQUE: INTERVENTIONALIST(S): MD [...] the interventional CT scanner bed. An initial slot service specialist image and axial noncontrast CT images of [...] Gatica MD. This study was interpreted at [place], [place]. MACRO: None Signed by: Caron Donaldson 11/14/2023 8:11 AM Dictation workstation: [id number] XR chest 1 view Narrative: Interpreted By: Bunny Asher and [place] Lesley STUDY: XR CHEST 1 VIEW; 11/13/2023 11:11 pm INDICATION: Signs/Symptoms:preop. COMPARISON: CT chest abdomen pelvis 11/06/2023 ACCESSION NUMBER(S): [id number] ORDERING CLINICIAN: RU SANTOS FINDINGS: AP upright [...] as stated. This study was interpreted at [facility], [place], [place]. MACRO: None Signed by: Bunny Asher 11/14/2023 7:48 AM Dictation workstation: [id number] Physical Exam BP 121/67 Pulse 60 Temp [...] 2 of admission as a transfer from [facility] to [facility] for evaluation of back pain likely [...] Of note the above was done with [employer] dictation system. Note was proofread to minimize [...] and clinical correlation Confirmed by Sophie Florian ([id number]) on 11/06/2023 8:58:45 PM MR lumbar spine w and wo IV contrast Narrative: Interpreted By: Lynda Bal, STUDY: MRI of the lumbar spine without IV contrast; 11/06/2023 12:58 pm INDICATION: Signs/Symptoms:Abnormal thoracic CT scan, cancer staging. COMPARISON: None. ACCESSION NUMBER(S): [id number] ORDERING CLINICIAN: VERA HUANG TECHNIQUE: Sagittal and [...] stenosis, narrowing of the subarticular recess and hnsi-bq-wcumumcf bilateral neural foraminal stenosis. L3-L4: Disc bulge, [...] as stated. This study was interpreted at [facility], [place], [place]. MACRO: None Signed by: Lynda Bal 11/06/2023 1:29 PM Dictation workstation: [id number] MR thoracic spine w and wo IV contrast Narrative: Interpreted By: Lynda Bal, STUDY: MR THORACIC SPINE W AND WO IV CONTRAST; 11/06/2023 12:58 pm INDICATION: Signs/Symptoms:Abnormal thoracic CT scan, cancer staging. COMPARISON: None. ACCESSION NUMBER(S): [id number] ORDERING CLINICIAN: VERA HUANG TECHNIQUE: Sagittal T1, T2, STIR and axial T2 and T1 weighted MR images of the thoracic spine were obtained. FINDINGS: Counting was performed from the C2 vertebral body on the slot service specialist image. Alignment: There is slightly exaggerated thoracic [...] spine with mild degenerative endplate changes and nzij-qu-fsrczkcn disc height loss. There is prevertebral infiltration [...] with moderate to severe spinal canal and rnwr-fh-dbfndgcg bilateral neural foraminal stenosis. T9-T10, T10-T11: Degenerative [...] Lynda Bal 11/06/2023 1:24 PM Dictation workstation: [id number] MR cervical spine w and wo IV contrast Narrative: Interpreted By: Lynda Bal, STUDY: MR CERVICAL SPINE W AND WO IV CONTRAST; 11/06/2023 12:58 pm INDICATION: Signs/Symptoms:Abnormal CT thoracic spine, Cancer staging. COMPARISON: None. ACCESSION NUMBER(S): [id number] ORDERING CLINICIAN: VERA HUANG TECHNIQUE: Sagittal T1, [...] throughout the cervical spine. Varying degrees of lffa-rl-zhkvtasv disc height loss. Cord: Within the limitation [...] Lynda Bal 11/06/2023 1:10 PM Dictation workstation: [id number] CT chest abdomen pelvis wo IV contrast Narrative: STUDY: CT Chest, Abdomen, and Pelvis without IV Contrast; 11/06/2023, 08 INDICATION: Abnormal thoracic spine CT. COMPARISON: CT thoracic 11/06/2023, XR chest 10/09/2023, CT abd 01/05/2020. ACCESSION NUMBER(S): [id number] ORDERING CLINICIAN: VERA HUANG TECHNIQUE: CT of [...] back pain. COMPARISON: None available. ACCESSION NUMBER(S): [id number] ORDERING CLINICIAN: SKINNY STEEL TECHNIQUE: CT of [...] 2 of admission as a transfer from [facility] to [facility] for evaluation of back pain likely [...] risk) - 3.9% 30-day risk of , OR, or cardiac arrest Per patient and chart [...] Of note the above was done with [employer] system. Note was proofread to minimize errors. [...] Comments: Hospital bed Prior Function: Level of [place]: Independent with ADLs and functional transfers (Sponge [...] Within Functional Limits, , and Outcome Measures: [facility] Daily Activity Putting on and taking off [...] 2:54 PM Alonzo Antony OTR/OTD Rehab Office: [phone] * Sophie Trevino, PT - 11/12/2023 2:21 [...] long time. pt reports she slides to [employer] (not with board)) Precautions: Precautions Medical Precautions: [...] (3/5) LLE LLE : (3/5) Outcome Measures: [facility] Basic Mobility Turning from your back to [...] Plan per Medical/Surgical team: Pt transferred from [facility] with multiple large lung nodules c/f mets, plan for IR for biopsy today and consult with ID regarding alf IV abx plan. Neuro-surgery team, PT/OT consulted. Payer: [employer] Status: Inpatient Discharge disposition: PT/OT evals are pending, anticipate pt will need inpatient rehab based on current [facility] mobility score of 11. Potential Barriers: none ADOD: 11/14 Attempted to meet with pt this afternoon but she was resting in bed with her eyes closed, decision made not to aware pt/ assessment deferred to another date and time. educational technology coordinator will continue to follow for discharge planning needs. Kay Putnam RN Transitional Commercial Underwriter/TCC [id number] * Ru Santos MD - 11/12/2023 12:32 [...] and clinical correlation Confirmed by Sophie Florian ([id number]) on 11/06/2023 8:58:45 PM MR lumbar spine w and wo IV contrast Narrative: Interpreted By: Lynda Bal, STUDY: MRI of the lumbar spine without IV contrast; 11/06/2023 12:58 pm INDICATION: Signs/Symptoms:Abnormal thoracic CT scan, cancer staging. COMPARISON: None. ACCESSION NUMBER(S): [id number] ORDERING CLINICIAN: VERA HUANG TECHNIQUE: Sagittal and [...] stenosis, narrowing of the subarticular recess and irau-fh-geoxmgev bilateral neural foraminal stenosis. L3-L4: Disc bulge, [...] as stated. This study was interpreted at [place], [place]. MACRO: None Signed by: Lynda Bal 11/06/2023 1:29 PM Dictation workstation: [id number] MR thoracic spine w and wo IV contrast Narrative: Interpreted By: Lynda Bal, STUDY: MR THORACIC SPINE W AND WO IV CONTRAST; 11/06/2023 12:58 pm INDICATION: Signs/Symptoms:Abnormal thoracic CT scan, cancer staging. COMPARISON: None. ACCESSION NUMBER(S): [id number] ORDERING CLINICIAN: VERA HUANG TECHNIQUE: Sagittal T1, T2, STIR and axial T2 and T1 weighted MR images of the thoracic spine were obtained. FINDINGS: Counting was performed from the C2 vertebral body on the slot service specialist image. Alignment: There is slightly exaggerated thoracic [...] spine with mild degenerative endplate changes and oaqw-ji-glnqyysi disc height loss. There is prevertebral infiltration [...] with moderate to severe spinal canal and reyk-qb-chqvrfhj bilateral neural foraminal stenosis. T9-T10, T10-T11: Degenerative [...] Lynda Bal 11/06/2023 1:24 PM Dictation workstation: [id number] MR cervical spine w and wo IV contrast Narrative: Interpreted By: Lynda Bal, STUDY: MR CERVICAL SPINE W AND WO IV CONTRAST; 11/06/2023 12:58 pm INDICATION: Signs/Symptoms:Abnormal CT thoracic spine, Cancer staging. COMPARISON: None. ACCESSION NUMBER(S): [id number] ORDERING CLINICIAN: VERA HUANG TECHNIQUE: Sagittal T1, [...] throughout the cervical spine. Varying degrees of lvex-fe-yqsxwbmk disc height loss. Cord: Within the limitation [...] Lynda Bal 11/06/2023 1:10 PM Dictation workstation: [id number] CT chest abdomen pelvis wo IV contrast Narrative: STUDY: CT Chest, Abdomen, and Pelvis without IV Contrast; 11/06/2023, 0805 INDICATION: Abnormal thoracic spine CT. COMPARISON: CT thoracic 11/06/2023, XR chest 10/09/2023, CT abd 01/05/2020. ACCESSION NUMBER(S): [id number] ORDERING CLINICIAN: VERA HUANG TECHNIQUE: CT of [...] back pain. COMPARISON: None available. ACCESSION NUMBER(S): [id number] ORDERING CLINICIAN: SKINNY STEEL TECHNIQUE: CT of [...] QT Interval 354 QTC Calculation(Bazett) 447 R Lodi -50 T Lodi 125 QRS Count 16 Q Onset 203 [...] and clinical correlation Confirmed by Sophie Florian ([id number]) on 11/06/2023 8:58:45 PM Assessment and Plan Back pain: Appears consistent with vertebral osteomyelitis/discitis. Overall lower suspicion related to small pulmonary nodules. -Consulting IR for vertebral biopsy. Will send for culture and pathology to rule out mets. May [id number] testing if cultures are negative. Patient be [...] Of note the above was done with [employer] dictation system. Note was proofread to minimize [...] Lynda Bal 11/06/2023 1:10 PM Dictation workstation: [id number] CT chest abdomen pelvis wo IV contrast [...] Presenting for progressive back pain, transferred from [facility] 11/08 for letty rosurgical evaluation, ID consulted [...] Medicine PGY2 ID Consult Team A Pager [phone] Epic Chat Preferred Associated attestation - Megan [...] Megan Osorio DO Epic Chat or pager [phone] * Carrington De Los Santos MD - [...] ppx Rest per primary Carrington De Los aSntos MD * Ru Santos MD - 11/11/2023 [...] and clinical correlation Confirmed by Sophie Florian ([id number]) on 11/06/2023 8:58:45 PM MR lumbar spine w and wo IV contrast Narrative: Interpreted By: Lynda Bal, STUDY: MRI of the lumbar spine without IV contrast; 11/06/2023 12:58 pm INDICATION: Signs/Symptoms:Abnormal thoracic CT scan, cancer staging. COMPARISON: None. ACCESSION NUMBER(S): [id number] ORDERING CLINICIAN: VERA HUANG TECHNIQUE: Sagittal and [...] stenosis, narrowing of the subarticular recess and natk-al-bvgyuxpp bilateral neural foraminal stenosis. L3-L4: Disc bulge, [...] as stated. This study was interpreted at [place], [place]. MACRO: None Signed by: Lynda Bal 11/06/2023 1:29 PM Dictation workstation: [id number] MR thoracic spine w and wo IV contrast Narrative: Interpreted By: Lynda Bal, STUDY: MR THORACIC SPINE W AND WO IV CONTRAST; 11/06/2023 12:58 pm INDICATION: Signs/Symptoms:Abnormal thoracic CT scan, cancer staging. COMPARISON: None. ACCESSION NUMBER(S): [id number] ORDERING CLINICIAN: VERA HUANG TECHNIQUE: Sagittal T1, T2, STIR and axial T2 and T1 weighted MR images of the thoracic spine were obtained. FINDINGS: Counting was performed from the C2 vertebral body on the slot service specialist image. Alignment: There is slightly exaggerated thoracic [...] spine with mild degenerative endplate changes and nbjv-cf-poggmewc disc height loss. There is prevertebral infiltration [...] with moderate to severe spinal canal and acua-hj-byhltbrj bilateral neural foraminal stenosis. T9-T10, T10-T11: Degenerative [...] Lynda Bal 11/06/2023 1:24 PM Dictation workstation: [id number] MR cervical spine w and wo IV contrast Narrative: Interpreted By: Lynda Bal, STUDY: MR CERVICAL SPINE W AND WO IV CONTRAST; 11/06/2023 12:58 pm INDICATION: Signs/Symptoms:Abnormal CT thoracic spine, Cancer staging. COMPARISON: None. ACCESSION NUMBER(S): [id number] ORDERING CLINICIAN: VERA HUANG TECHNIQUE: Sagittal T1, [...] throughout the cervical spine. Varying degrees of twgc-nj-zptdenda disc height loss. Cord: Within the limitation [...] Lynda Bal 11/06/2023 1:10 PM Dictation workstation: [id number] CT chest abdomen pelvis wo IV contrast Narrative: STUDY: CT Chest, Abdomen, and Pelvis without IV Contrast; 11/06/2023, 0805 INDICATION: Abnormal thoracic spine CT. COMPARISON: CT thoracic 11/06/2023, XR chest 10/09/2023, CT abd 01/05/2020. ACCESSION NUMBER(S): [id number] ORDERING CLINICIAN: VERA HUANG TECHNIQUE: CT of [...] back pain. COMPARISON: None available. ACCESSION NUMBER(S): [id number] ORDERING CLINICIAN: SKINNY STEEL TECHNIQUE: CT of [...] QT Interval 354 QTC Calculation(Bazett) 447 R Lodi -50 T Lodi 125 QRS Count 16 Q Onset 203 [...] and clinical correlation Confirmed by Sophie Florian ([id number]) on 11/06/2023 8:58:45 PM Assessment and Plan Back pain: Appears consistent with vertebral osteomyelitis/discitis. Overall lower suspicion related to small pulmonary nodules. -Consulting IR for vertebral biopsy. Will send for culture and pathology to rule out mets. May [id number] testing if cultures are negative. Patient be [...] Of note the above was done with [employer] dictation system. Note was proofread to minimize [...] and clinical correlation Confirmed by Sophie Florian ([id number]) on 11/06/2023 8:58:45 PM MR lumbar spine w and wo IV contrast Narrative: Interpreted By: Lynda Bal, STUDY: MRI of the lumbar spine without IV contrast; 11/06/2023 12:58 pm INDICATION: Signs/Symptoms:Abnormal thoracic CT scan, cancer staging. COMPARISON: None. ACCESSION NUMBER(S): [id number] ORDERING CLINICIAN: VERA HUANG TECHNIQUE: Sagittal and [...] stenosis, narrowing of the subarticular recess and vfiz-we-sambwojh bilateral neural foraminal stenosis. L3-L4: Disc bulge, [...] as stated. This study was interpreted at [facility], [place], [place]. MACRO: None Signed by: Lynda Bal 11/06/2023 1:29 PM Dictation workstation: [id number] MR thoracic spine w and wo IV contrast Narrative: Interpreted By: Lynda Bal, STUDY: MR THORACIC SPINE W AND WO IV CONTRAST; 11/06/2023 12:58 pm INDICATION: Signs/Symptoms:Abnormal thoracic CT scan, cancer staging. COMPARISON: None. ACCESSION NUMBER(S): [id number] ORDERING CLINICIAN: VERA HUANG TECHNIQUE: Sagittal T1, T2, STIR and axial T2 and T1 weighted MR images of the thoracic spine were obtained. FINDINGS: Counting was performed from the C2 vertebral body on the slot service specialist image. Alignment: There is slightly exaggerated thoracic [...] spine with mild degenerative endplate changes and goxy-wv-xzckbdts disc height loss. There is prevertebral infiltration [...] with moderate to severe spinal canal and ebxg-wb-uzxlogvv bilateral neural foraminal stenosis. T9-T10, T10-T11: Degenerative [...] Lynda Bal 11/06/2023 1:24 PM Dictation workstation: [id number] MR cervical spine w and wo IV contrast Narrative: Interpreted By: Lynda Bal, STUDY: MR CERVICAL SPINE W AND WO IV CONTRAST; 11/06/2023 12:58 pm INDICATION: Signs/Symptoms:Abnormal CT thoracic spine, Cancer staging. COMPARISON: None. ACCESSION NUMBER(S): [id number] ORDERING CLINICIAN: VERA HUANG TECHNIQUE: Sagittal T1, [...] throughout the cervical spine. Varying degrees of emnw-zx-tayqpkly disc height loss. Cord: Within the limitation [...] Lynda Bal 11/06/2023 1:10 PM Dictation workstation: [id number] CT chest abdomen pelvis wo IV contrast Narrative: STUDY: CT Chest, Abdomen, and Pelvis without IV Contrast; 11/06/2023804 INDICATION: Abnormal thoracic spine CT. COMPARISON: CT thoracic 11/06/2023, XR chest 10/09/2023, CT abd 01/05/2020. ACCESSION NUMBER(S): [id number] ORDERING CLINICIAN: VERA HUANG TECHNIQUE: CT of [...] back pain. COMPARISON: None available. ACCESSION NUMBER(S): [id number] ORDERING CLINICIAN: SKINNY STEEL TECHNIQUE: CT of [...] QT Interval 354 QTC Calculation(Bazett) 447 R Lodi -50 T Lodi 125 QRS Count 16 Q Onset 203 [...] and clinical correlation Confirmed by Sophie Florian ([id number]) on 11/06/2023 8:58:45 PM Assessment and Plan Back pain: Appears consistent with vertebral osteomyelitis/discitis. Overall lower suspicion related to small pulmonary nodules. -Consulting IR for vertebral biopsy. Will send for culture and pathology to rule out mets. May [id number] testing if cultures are negative -Continue vancomycin [...] Of note the above was done with [employer] system. Note was proofread to minimize errors. [...] QT Interval 354 QTC Calculation(Bazett) 447 R Lodi -50 T Lodi 125 QRS Count 16 Q Onset 203 [...] and clinical correlation Confirmed by Sophie Florian ([id number]) on 11/06/2023 8:58:45 PM Imaging MR lumbar [...] as stated. This study was interpreted at [place], [place]. MACRO: None Signed by: Lynda Bal 11/06/2023 1:29 PM Dictation workstation: [id number] MR thoracic spine w and wo IV [...] Lynda Bal 11/06/2023 1:24 PM Dictation workstation: [id number] MR cervical spine w and wo IV contrast Result Date: 11/06/2023 The examination is moderately degraded by patient motion artifact. Within this limitation, no evidence of focal osseous metastatic disease. No definite abnormal signal or enhancement within the cervical cord. Multilevel degenerative changes as detailed above. MACRO: None Signed by: Lynda Bal 11/06/2023 1:10 PM Dictation workstation: [id number] CT chest abdomen pelvis wo IV contrast [...] 1 of admission as a transfer from [facility] to [facility] for work up of newly found [...] Information Primary Emergency Contact: SHABBIR GUILLERMO Address: [address] [place] [phone] [facility] Mobile Relation: Son Preferred language: [place] Hydraulic Pile Hammer Operator needed? No Secondary Emergency Contact: Rissa GUILLERMO Address: [address] [place] [phone] [facility] Mobile Relation: Son Preferred language: [place] Hydraulic Pile Hammer Operator needed? No Thomas Hoffman MD, MSc [...] Care Pharmacist [facility] Please reach out via Secure Chat for questions * Tracy Thompson [facility] - 11/09/2023 10:52 AM EDT Pharmacy Medication History Review Daryn Guillermo is a 77 y.o. female admitted for Discitis, unspecified, thoracic region. Pharmacy reviewed the patient's dndfb-vo-mtadyqmnm medications and allergies for accuracy. The list below reflects the updated DISTRICT FIRE MANAGEMENT OFFICER list. Comments regarding how patient may be [...] discharge. Pharmacy has been updated to [facility]. Sources used to confirm home medication list include: Patient interview, OARRS, Care Everywhere, medication fill history, Discharge Summary 10/15/23. Medications added: None Medications modified: None Medications to be removed: Baclofen Below are additional concerns with the patient's DISTRICT FIRE MANAGEMENT OFFICER list. None to note Tracy Thompson [facility] Transitions of Care Pharmacist [facility] [facility] Please reach out via Secure Chat for questions, or if no response call [employer] or [email or web address] documented in this [facility] Work Phone: [phone]) 656-268608-13-2024 Miscellaneous Notes* Care Plan - [place] [...] Labs, ECG/Telemetry: Yes Risks/Benefits/Alternatives Discussed with Patient/POA/Legal Sliver Cutter: Yes Stop Sign on Door: Yes Time [...] Atrial Junction Line Confirmation: ECG Lot #: [id number] Section Supervisor: Bard PICC Line Exp Date: 02/06/2025 Securement: [...] Note Date: 11/09/2023 - 11/14/2023 OR [facility] OR Name: Daryn Guillermo, : 1945, Age: 77 y.o., , Sex: female Diagnosis Pre-op Diagnosis * Discitis, unspecified, thoracic region [M46.44] Post-op Diagnosis * Discitis, unspecified, thoracic region [M46.44] Procedures T5-T9 laminectomy for decompression and evacuation of epidural phlegmon Surgeons * Braulio Oneil - Primary Resident/Fellow/Other Audio Narrator: Surgeons and Role: * Giovanna Coles MD - Resident - Assisting * Dyan Waldron MD - Resident - Assisting Procedure Summary Anesthesia: Anesthesia type not filed in the log. ASA: III Anesthesia Staff: Anesthesiologist: Cameron Matos MD; Carolina Bright MD C-AA: YUDITH Mo Lighting Adviser: Miles Vidal MD Estimated Blood Loss: 150 [...] TISSUE/WOUND CULTURE/SMEAR Braulio Oneil MD PhD 11/14/2023 116 B : LEFT LATERAL EPIDURAL Swab SPINE TISSUE/WOUND CULTURE/SMEAR Braulio Oneil MD PhD 11/14/2023 175 Staff: Maintenance Planning Clerk: Jennie Maintenance Planning Clerk: Kya Scrub Person: Jessica Scrub Person: Stephanie Relief Maintenance Planning Clerk: Yu Relief Scrub: Sujatha Relief Scrub: Lidija Relief Maintenance Planning Clerk: Waqar Drains and/or Catheters: Closed/Suction Drain 1 [...] intubation. [facility] and all [...] closure. First we left a 10 round Tajik drain and a subfascial layer. Muscle and [...] Radiology Brief Postprocedure Note Attending: Dr. Donaldson Audio Narrator: Dr. Gatica Diagnosis: T6-T9 discitis/osteomyelitis Description of [...] ambulate who presented as a transfer from [facility] to [facility] on 11/09/23 for 4 weeks of back pain from suspected osteomyelitis/discitis and newly found multiple large lung nodules c/f metastatic disease. Patient was BIBA to [facility] and was admitted on 11/06/23 for intractable back pain. MRI showed concerns for osteomyelitis/discitis mid-lower thoracic spine (detailed above). She was started on vancomycin and Zosyn. Was transferred to [facility] on 11/09/23 and was continued on vancomycin [...] pain controlle dduring shift. documented in this [facility] Work Phone: [phone]) 604-146908-12-2024 Consult note* Carmen Rodriguez MD - 11/19/2023 3:00 PM EDTAssociated Order(s): Inpatient consult to Geriatric Medicine Inpatient consult to Geriatric Medicine Consult performed by: Carmen Rodriguez MD Consult ordered by: Sai Marie MD Primary Team: General Medicine Admit Date: 11/09/2023 Emergency Contact: Extended Emergency Contact Information Primary Emergency Contact: SHABBIR GUILLERMO Address: [address] [place] [address] [facility] Mobile Relation: Son Preferred language: [place] Hydraulic Pile Hammer Operator needed? No Secondary Emergency Contact: Rissa GUILLERMO Address: [address] [place] [id number] [facility] Mobile Relation: Son Preferred language: [place] Hydraulic Pile Hammer Operator needed? No Reason For Consult: Concern [...] her son who is currently admitted in [facility]. Patient stated she was previously on [...] Application 1 Application Topical BID Le L [place], MD 1 Application at 11/19/23 0900 oxyCODONE (Roxicodone) immediate release tablet 10 mg 10 mg oral q4h PRN Giovanna Coles MD 10 mg at 11/16/23 2214 oxyCODONE (Roxicodone) immediate release tablet 5 mg 5 mg oral q4h PRN Giovanna Coles MD 5 mg at 11/18/23 183 polyethylene glycol (Glycolax, Miralax) packet 34 g 34 g oral BID Giovanna Coles MD 17 g at [id number] [Held by provider] rivaroxaban (Xarelto) tablet 20 [...] Daily Giovanna Coles MD 75 mg at [id number] The patient's outpatient electronic medical record (EMR) is reviewed, notable information includes: 10/09-10/15/23: [facility] admitted for Acute Proteus Mirabilis [...] drug use: No -Exercise: No -Spiritual needs: Jainism, Presbyterian -Marital Status: 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 COMPARISON: 11/13/2023 chest radiograph ACCESSION NUMBER(S): [id number] ORDERING CLINICIAN: RU SANTOS FINDINGS: AP radiograph [...] as stated. This study was interpreted at [facility], [place], [place]. MACRO: None Signed by: Pastor Barrientos 11/17/2023 6:46 AM Dictation workstation: [id number] Head/Brain Imaging No results found for this or any previous visit. No results found for this or any previous visit. DATA: EKG: QTC Encounter Date: 11/09/23 ECG 12 Lead Result Value Ventricular Rate 73 Atrial Rate 73 WV Interval 196 QRS Duration 106 QT Interval 384 QTC Calculation(Bazett) 423 P Lodi -24 R Lodi -46 T Lodi -41 QRS Count 12 Q Onset 205 [...] likes music therapy and liked when her pharmacy tech from [place] came to visit before her surgery. Plan: Increase Effexor to 112.5mg daily Consult music therapy and inter com installer services 2. Concern for cognitive impairment - [...] Goals of Care: -Health care power of prosecuting attorney:No -Living will:No Code status:DNR/DNI 4M AGE-FRIENDLY [...] over the weekend, please page Geriatrics pager [phone] Consult Billing Time Prep time on date [...] and Cellulitis presents as a transfer from [facility] to [facility] for work up of newly found multiple large lung nodules c/f metastatic disease. Pertinent Labs: Albumin Date Value Ref Range Status 11/12/2023 2.8 (L) 3.4 - 5.0 g/dL Final Wound Assessment: Wound 11/06/23 Traumatic Leg Right;Lower (Active) Wound Image 11/12/23 1604 Site Assessment [place] 11/12/23 1604 Regine-Wound Assessment Hypopigmented 11/12/23 1604 [...] is a 77 y.o. female transferred from [facility] for neurosurgical evaluation for back pain [...] ago, at which time she presented to [facility]. Imaging atthat time was most consistent [...] was not relieved by acetaminophen. Imaging at [facility] was concerning for osteomyelitis with perivertebral abscesses as well as multiple new large pulmonary nodules. Blood cultures drawn and started on vanc/zosyn, which was changed to vanc/cefepime on admission to [facility]. Objective Physical Exam Constitutional: General: She is [...] is a 77 y.o. female transferred from [facility] for neurosurgical evaluation for back pain [...] MD PGY2 ID Consult Service A Pager [phone] Associated attestation - Megan Osorio DO - [...] course. She is receptive to speaking w/ inter com installer services and other support services offered while inpatient. Recommendations: -Cont IV vanc, dosed w/ pharmacy -Cont IV pip-tazo 3.375gm q6H -Will follow up blood cx and IR biopsy plans, when collected please send for pathology and gram stain w/ bacterial cx; if no growth will request 16s testing Will follow Megan Osorio DO Epic Chat or pager [phone] * Raul Burgos, PharmD - 11/09/2023 3:09 [...] loading dose. Patient is a transfer from [facility] and last dose taken was 1750mg [...] as stated. This study was interpreted at [place], [place]. MACRO: None Signed by: Lynda Bal 11/06/2023 1:29 PM Dictation workstation: [id number] Assessment/Plan Assessment: Daryn is a 77 y.o. [...] note signed by attending [facility] Work Phone: 1(406) [phone] Hospital Discharge instructions* Discharge Instructions* Elias Pappas [...] controlled. We recommended you go to a half-way facility for a period of time to [...] Everywhere. * Peripherally-Inserted Central Catheter Discharge Instructions (Costa Rican) * Osteomyelitis in adults ([place]ican) [facility] Phone: 1(967) 526-964708-06-2024 History and physical note* Jadyn Chan MD [...] as stated. This study was interpreted at [place], [place]. MACRO: None Signed by: Lynda Bal 11/06/2023 1:29 PM Dictation workstation: [id number] Assessment/Plan Assessment: Daryn is a 77 y.o. [...] and Cellulitis presents as a transfer from [facility] to [facility] for work up of newly found multiple large lung nodules c/f metastatic disease. At baseline patient is non-ambulatory and uses motorized scooter inside the house. She is bedbound most of the day and her primary caregiver is her son who is currently admitted at [facility]. Patient was in her usual state [...] present. Left lower leg: Edema present. Comments: [place] appearing BL lower extremities. Skin: General: Skin [...] and Cellulitis presents as a transfer from [facility] to [facility] for work up of newly found [...] (confirmed on admission) NOK: Eva Guillermo (son): [phone] Not yet staffed with the attending. Eulalia [...] started when her son was and the adwmjfdr-yb-bsq and grandchild left the home le aving patient depressed. [facility] Work Phone: [phone]) [phone] Nurse Note* Fátima Guadarrama RN - 10/15/2023 5:52 PM EDT Called Robbie Reyes and gave report. [facility]07-08-[facility] Nurse Note* Fátima Guadarrama RN - 10/15/2023 5:52 PM EDT Called Robbie Reyes and gave report. * Yennifer Gregg RN - 10/12/2023 6:34 PM EDT 10/11/23 am to 10/12/23 pm 963 ml intake only. Pt is declining meals. [facility] Work Phone: [phone]) [phone] Hospital Discharge instructions* Discharge Instructions* Sonya Hackett RN - 10/15/2023 5:05 PM EDT Hyponatremia The Basics Written by the doctors and editors at [facility] What is hyponatremia? -- Hyponatremia is [...] take care of yourself. [facility] Work Phone: 1([phone]) 399-183407-08-2024 Plan of care note* Care Plan - [...] goals for the shift include pain control [facility] Work Phone: [phone]) [phone] Miscellaneous Notes* Care Plan - Fátima Guadarrama [...] no focal motor deficits. documented in this [facility] Work Phone: [phone]) [phone] Note* Significant Event - BILL Vizcaino - [...] and accurate reflection of the individual's condition. [facility] Work Phone: 1([phone]) 486-790907-08-2024 History of Present illness Narrative* BILL Vizcaino - 10/15/2023 3:41 PM EDT Pt reviewed during Care Rounds today and she continues to be ready for discharge. Update in [facility]Port from [facility] that auth was not started over the weekend. SW met with pt to review her plan and the IM. Pt confirms her desires to discharge to [facility] and understands we are waiting on auth which was not started until today. Precert request sent to [facility] and is pending. Updatesattached in Careport for [facility]- they do not need a COVID. Care Transitions will continue to follow. ADDM: Update from [facility] that auth has been approved. Update in [facility]port to [facility] and they can accept today. Final updates/orders attached in Careport and the hospital exemption was completed by [facility]/[employer]. Transportation arranged for 6pm. No further [...] scan of the abdomen 01/05/2020 ACCESSION NUMBER(S): [id number] ORDERING CLINICIAN: FLAVIO AQUINO TECHNIQUE: Axial noncontrast [...] Normal caliber. GALLBLADDER: Status post cholecystectomy. PANCREAS: Ymlt-sl-uvjbjbyn fatty atrophy of the pancreas. SPLEEN: Splenomegaly [...] Vlad Araya 10/10/2023 3:17 AM Dictation workstation: [id number] XR chest 1 view Narrative: Interpreted By: Vlad Araya, STUDY: XR CHEST 1 VIEW; 10/10/2023 2:03 am INDICATION: Signs/Symptoms:weakness. COMPARISON: Chest x-ray 09/08/2022 ACCESSION NUMBER(S): [id number] ORDERING CLINICIAN: FLAVIO AQUINO FINDINGS: Multiple overlying leads are present. CARDIOMEDIASTINAL SILHOUETTE: Cardiomediastinal silhouette is stable in size and configuration. LUNGS: No consolidation, pleural effusion or pneumothorax. ABDOMEN: No remarkable upper abdominal findings. BONES: Multilevel degenerative changes of the spine. Bilateral shoulder osteoarthrosis. Impression: No acute cardiopulmonary process. MACRO: None Signed by: Vlad Araya 10/10/2023 2:11 AM Dictation workstation: [id number] Physical Exam General Appearance: AAO x 3, [...] but he is currently an inpatient at [facility] with cystic fibrosis and a second son will arrive home from [place] sometime later today. Patient states she is [...] scan of the abdomen 01/05/2020 ACCESSION NUMBER(S): [id number] ORDERING CLINICIAN: FLAVIO AQUINO TECHNIQUE: Axial noncontrast [...] Normal caliber. GALLBLADDER: Status post cholecystectomy. PANCREAS: Ygyw-do-tdrgjyki fatty atrophy of the pancreas. SPLEEN: Splenomegaly [...] Vlad Araya 10/10/2023 3:17 AM Dictation workstation: [id number] XR chest 1 view Narrative: Interpreted By: Vlad Araya, STUDY: XR CHEST 1 VIEW; 10/10/2023 2:03 am INDICATION: Signs/Symptoms:weakness. COMPARISON: Chest x-ray 09/08/2022 ACCESSION NUMBER(S): [id number] ORDERING CLINICIAN: FLAVIO AQUINO FINDINGS: Multiple overlying leads are present. CARDIOMEDIASTINAL SILHOUETTE: Cardiomediastinal silhouette is stable in size and configuration. LUNGS: No consolidation, pleural effusion or pneumothorax. ABDOMEN: No remarkable upper abdominal findings. BONES: Multilevel degenerative changes of the spine. Bilateral shoulder osteoarthrosis. Impression: No acute cardiopulmonary process. MACRO: None Signed by: Vlad Araya 10/10/2023 2:11 AM Dictation workstation: [id number] Physical Exam General Appearance: AAO x 3, [...] Hyponatremia -History of SIADH -[facility]Dr. Mills following-recommends continue following fluid [...] Plan is for Pt to discharge to [facility]. 1555 SW met w/ Pt at bedside. Advised Pt of accepting facilities and [facility] Pt does not want to go to [facility] with a semi-private room. [employer] sent message to [facility] to indicate they are FOC. Discharge plan is [facility] pending precert. SW to follow. [...] scan of the abdomen 01/05/2020 ACCESSION NUMBER(S): [id number] ORDERING CLINICIAN: FLAVIO AQUINO TECHNIQUE: Axial noncontrast [...] Normal caliber. GALLBLADDER: Status post cholecystectomy. PANCREAS: Jsbr-im-nqsahnoy fatty atrophy of the pancreas. SPLEEN: Splenomegaly [...] as noted above. MACRO: None Signed by: lVad Araya 10/10/2023 3:17 AM Dictation workstation: [id number] XR chest 1 view Narrative: Interpreted By: Vlad Araya, STUDY: XR CHEST 1 VIEW; 10/10/2023 2:03 am INDICATION: Signs/Symptoms:weakness. COMPARISON: Chest x-ray 09/08/2022 ACCESSION NUMBER(S): [id number] ORDERING CLINICIAN: FLAVIO AQUINO FINDINGS: Multiple overlying leads are present. CARDIOMEDIASTINAL SILHOUETTE: Cardiomediastinal silhouette is stable in size and configuration. LUNGS: No consolidation, pleural effusion or pneumothorax. ABDOMEN: No remarkable upper abdominal findings. BONES: Multilevel degenerative changes of the spine. Bilateral shoulder osteoarthrosis. Impression: No acute cardiopulmonary process. MACRO: None Signed by: Vlad Araya 10/10/2023 2:11 AM Dictation workstation: [id number] Physical Exam General Appearance: AAO x 3, [...] pain End of Session Communication: Bedside nurse, Commercial Underwriter End of Session Patient Position: Bed, 3 [...] setting. pt needs extra time Outcome Measures: [facility] Basic Mobility Turning from your back to [...] Static Sitting-Level of Assistance: Close supervision Outcome Measures:[facility] Daily Activity Putting on and taking off [...] PT/OT have yet to see patient today. Senior Laboratory Technician attempted to meet with patient at bedside to review discharge plan. Patient very engaged with phone conversation. SW waited for a few moments and then offered to return later. Patient agreed. - 1115: Patient now working with PT/OT. SW to return. - 1530: Per PT/OT, patient's current [facility] scores are 9/13; More appropriate for care [...] expects to be discharged to: Home with [facility] vs SNF Spoke to FINANCIAL SALES PROFESSIONAL. Pt has 2 sons. The son that is the main caregiver is hospitalized at [facility]. Other son is in [place] for a wedding. Pt is functioning at [...] accept (no beds). PT has been to [facility] and wont go back. P used to workat [employer] and does not want to go there. Pt requests referral be made to [facility]. Unsure when son in hospital will be released. Anticipates son in [place] will return home Sunday/Sunday depending on flughts. I have not told him that I am sick. I don't want to ruin or cut short his vacation. Plan- TBD home with or without hhc vs SNF pending acceptance and precert. CT will follow. * Love Gibbs APRN-LINEN ROOM SUPERVISOR - 10/11/2023 10:15 AM EDT Daryn Guillermo [...] scan of the abdomen 01/05/2020 ACCESSION NUMBER(S): [id number] ORDERING CLINICIAN: FLAVIO AQUINO TECHNIQUE: Axial noncontrast [...] Normal caliber. GALLBLADDER: Status post cholecystectomy. PANCREAS: Vehm-ii-fzfhvgox fatty atrophy of the pancreas. SPLEEN: Splenomegaly [...] Vlad Araya 10/10/2023 3:17 AM Dictation workstation: [id number] XR chest 1 view Narrative: Interpreted By: Vlad Araya, STUDY: XR CHEST 1 VIEW; 10/10/2023 2:03 am INDICATION: Signs/Symptoms:weakness. COMPARISON: Chest x-ray 09/08/2022 ACCESSION NUMBER(S): [id number] ORDERING CLINICIAN: FLAVIO AQUINO FINDINGS: Multiple overlying leads are present. CARDIOMEDIASTINAL SILHOUETTE: Cardiomediastinal silhouette is stable in size and configuration. LUNGS: No consolidation, pleural effusion or pneumothorax. ABDOMEN: No remarkable upper abdominal findings. BONES: Multilevel degenerative changes of the spine. Bilateral shoulder osteoarthrosis. Impression: No acute cardiopulmonary process. MACRO: None Signed by: Vlad Araya 10/10/2023 2:11 AM Dictation workstation: [id number] Physical Exam General Appearance: AAO x 3, [...] 75 mL/hr, Last Rate: 75 mL/hr (10/11/23 8323) PRN medications PRN medications: acetaminophen, albuterol, baclofen, [...] facility. -PT OT, patient will need placement half-way facility. #4 chronic atrial fibrillation - Initial [...] services Type of Post Acute Facility Services detention Type of Home Care Services Home OT;Home [...] in December (per pt) Pharmacy is either [facility] or [facility]- takes meds as prescribed, able to afford and obtain. Non insulin dependent DM II checking sugar a couple times a week. Pt lives with son, is either wheelchair or bedbound, has not walked in several years. Has and uses power chair, wheelchair, trapeze bar. Per care rounds pt tearful on talk of SNF dueto bad experience at [facility]. Discussed same with pt who states, Not [facility]. [facility] but would have to talk to [...] pain End of Session Communication: Bedside nurse, Commercial Underwriter End of Session Patient Position: Bed, 3 [...] Prior Function Per Pt/Caregiver Report Level of [place]: Independent with ADLs and functional transfers Receives [...] she will try again tomorrow) Outcome Measures: [facility] Basic Mobility Turning from your back to [...] Fair End of Session Communication: Bedside nurse, Commercial Underwriter End of Session Patient Position: Bed, 3 [...] bed and trapeze Prior Function: Level of [place]: Independent with ADLs and functional transfers Receives [...] Strength: Strength Comments: VAUGHN 4-/5 Outcome Measures: [facility] Daily Activity Putting on and taking off [...] 10/10/23 Expected End: 10/24/23 documented in this [facility] Work Phone: 1(763) [phone] Hospital course Narrative* Gunjan Mohr, VISCERA WASHER-LINEN ROOM SUPERVISOR - 10/15/2023 9:08 AM EDT Discharge Diagnosis [...] Center 12/18/2023 1:00 PM Huan Gilman MD [id number] [facility] 07/18/2024 1:00 PM MACARENA Natarajan, DNP [id number] [facility] MACARENA Etienne documented in this [facility] Work Phone: 1([phone]) [phone] Plan of care note* Care Plan - [...] Recommendations to address these barriers include . [facility]07-06-2024 Plan of care note* Care Plan [...] Recommendations to address these barriers include . [facility] Work Phone: [phone]) 184-265207-05-2024 Plan of care note* Care Plan - [...] Pain less than 3/10 through this shift [facility]07-05-2024 Nurse Note* Yennifer Gregg RN - 10/12/2023 6:34 PM EDT 7/24 am to 724 pm 963 ml intake only. Pt is declining meals. [facility] Work Phone: 1([phone]) [phone] Plan of care note* Care Plan - [...] by end of the shift Outcome: Progressing [facility] Work Phone: 1([phone]) 577-851707-04-2024 Plan of care note* Care Plan - [...] Outcome: Progressing Goal: Promote/optimize nutrition Outcome: Progressing [facility] Work Phone: 1([phone]) [phone] Plan of care note* Care Plan - Yennifer Gregg RN - 10/11/2023 3:08 PM EDT The patient's goals for the shift include The clinical goals for the shift include remain comfortable, use call light for any needs through this shift. [facility] Work Phone: 1([phone]) [phone] Consult note* Ru Mills DO - 10/11/2023 [...] consult Principal Problem: Hyponatremia Ru Mills DO [facility] Work Phone: 1([phone]) [phone] Consult note* Ru Mills DO - 10/11/2023 [...] condition. Laurent Martínez RN Wound /Diabetic Education [phone] Laurent Martínez RN 10/10/2023 12:45 PM * [...] help prepare meals, has groceries delivered from [facility]. Does not like meat - cheese and [...] (kCal): 2100 kCal Method for Estimating Needs: [address] Jeor = [phone] kcal Total Protein Estimated Needs (g): 100 [...] Yennifer Harper RDN, LD documented in this [facility] Work Phone: 1([phone]) 416-303207-04-2024 Plan of care note* Care Plan - [...] goals for the shift include remain comortable [facility] Work Phone: 1([phone]) 484-290207-03-2024 Consult note* Laurent Martínez RN - 10/10/2023 [...] condition. Laurent Martínez RN Wound /Diabetic Education [phone] Laurent Martínez RN 10/10/2023 12:45 PM [facility]07-03-2024 Consult note* eYnnifer Harper RDN, LD - 10/10/2023 11:33 AM [...] help prepare meals, has groceries delivered from [facility]. Does not like meat - cheese and [...] (kCal): 2100 kCal Method for Estimating Needs: [address] St Jeor = [phone] kcal Total Protein Estimated Needs (g): 100 [...] (min): 30 minutes Yennifer Harper RDN, LD [facility] Work Phone: 1([phone]) 313-680207-03-2024 Plan of care note* Care Plan - [...] include to remain comfortable throughout the shift. [facility] Work Phone: [phone]) 148-697507-03-2024 Note* Treatment Plan - Love Gibbs APRN-PALOMA [...] coherent and conversant, no focal motor deficits. [facility] Work Phone: 1(314) 606-876107-03-2024 History and physical note* Renetta Romero MD - 10/10/2023 4:27 AM EDT HISTORY AND PHYSICAL EXAMINATION Daryn Russellnett 1945 77 y.o. [id number] 10/10/23 4:27 AM CHIEF COMPLAINT: Generalized weakness. [...] Date/Time CT abdomen pelvis wo IV contrast [[id number]] Collected: 10/10/23317 Order Status: Completed Updated: 10/10/23317 Narrative: Interpreted By: Vlad Araya, STUDY: CT ABDOMEN PELVIS WO IV CONTRAST; 10/10/2023 2:45 am INDICATION: Signs/Symptoms:back pain w/o injury. COMPARISON: CT scan of the abdomen 01/05/2020 ACCESSION NUMBER(S): [id number] ORDERING CLINICIAN: FLAVIO AQUINO TECHNIQUE: Axial noncontrast [...] Normal caliber. GALLBLADDER: Status post cholecystectomy. PANCREAS: Dvcy-jx-mwziqkaz fatty atrophy of the pancreas. SPLEEN: Splenomegaly [...] Vlad Araya 10/10/2023 3:17 AM Dictation workstation: [id number] XR chest 1 view [[id number]] Collected: 10/10/23211 Order Status: Completed Updated: 10/10/23211 Narrative: Interpreted By: Vlad Araya, STUDY: XR CHEST 1 VIEW; 10/10/2023 2:03 am INDICATION: Signs/Symptoms:weakness. COMPARISON: Chest x-ray 09/08/2022 ACCESSION NUMBER(S): [id number] ORDERING CLINICIAN: FLAVIO AQUINO FINDINGS: Multiple overlying leads are present. CARDIOMEDIASTINAL SILHOUETTE: Cardiomediastinal silhouette is stable in size and configuration. LUNGS: No consolidation, pleural effusion or pneumothorax. ABDOMEN: No remarkable upper abdominal findings. BONES: Multilevel degenerative changes of the spine. Bilateral shoulder osteoarthrosis. Impression: No acute cardiopulmonary process. MACRO: None Signed by: Vlad Araya 10/10/2023 2:11 AM Dictation workstation: [id number] Assessment/Plan Principal Problem: Hyponatremia #1 hyponatremia: In [...] PT OT, patient may need placement to half-way facility. #4 chronic atrial fibrillation: Initial heart [...] resuscitated. Renetta Romero MD 10/10/23 6:44 AM [facility] Work Phone: [phone]) [phone] History and physical note* Renetta Romero MD - 10/10/2023 4:27 AM EDT HISTORY AND PHYSICAL EXAMINATION Daryn Guillermo 1945 77 y.o. [id number] 10/10/23 4:27 AM CHIEF COMPLAINT: Generalized weakness. [...] Date/Time CT abdomen pelvis wo IV contrast [[id number]] Collected: 10/10/23317 Order Status: Completed Updated: 10/10/23317 Narrative: Interpreted By: Vlad Araya, STUDY: CT ABDOMEN PELVIS WO IV CONTRAST; 10/10/2023 2:45 am INDICATION: Signs/Symptoms:back pain w/o injury. COMPARISON: CT scan of the abdomen 01/05/2020 ACCESSION NUMBER(S): [id number] ORDERING CLINICIAN: FLAVIO AQUINO TECHNIQUE: Axial noncontrast [...] Normal caliber. GALLBLADDER: Status post cholecystectomy. PANCREAS: Dgeu-lf-xzcigcxu fatty atrophy of the pancreas. SPLEEN: Splenomegaly [...] Vlad Araya 10/10/2023 3:17 AM Dictation workstation: [id number] XR chest 1 view [[id number]] Collected: 10/10/23211 Order Status: Completed Updated: 10/10/23211 Narrative: Interpreted By: Vlad Araya, STUDY: XR CHEST 1 VIEW; 10/10/2023 2:03 am INDICATION: Signs/Symptoms:weakness. COMPARISON: Chest x-ray 09/08/2022 ACCESSION NUMBER(S): [id number] ORDERING CLINICIAN: FLAVIO AQUINO FINDINGS: Multiple overlying leads are present. CARDIOMEDIASTINAL SILHOUETTE: Cardiomediastinal silhouette is stable in size and configuration. LUNGS: No consolidation, pleural effusion or pneumothorax. ABDOMEN: No remarkable upper abdominal findings. BONES: Multilevel degenerative changes of the spine. Bilateral shoulder osteoarthrosis. Impression: No acute cardiopulmonary process. MACRO: None Signed by: Vlad Araya 10/10/2023 2:11 AM Dictation workstation: [id number] Assessment/Plan Principal Problem: Hyponatremia #1 hyponatremia: In [...] PT OT, patient may need placement to half-way facility. #4 chronic atrial fibrillation: Initial heart [...] MD 10/10/23 6:44 AM documented in this [facility] Work Phone: 1([phone]) 387-657407-03-2024 Emergency department Note* Flavio Aquino DO - [...] History provided by: EMS personnel and patient interpreter and translator used: No No data recorded Patient History [...] Aquino DO 10/10/23 0402 documented in this [facility] Work Phone: [phone] Physician Emergency department Note* Flavio Aquino DO [...] History provided by: EMS personnel and patient interpreter and translator used: No No data recorded Patient History [...] Procedure Procedures Flavio Aquino DO 10/10/23 0402 [facility] Work Phone: 1([phone]) [phone] History of Present illness Narrative* Jojo You [...] to keep elevated. Dr. Valdivia in July [facility] with good sodium in May. Cataracts - [...] Care - Established; Future documented in this [facility] Work Phone: [phone]) [phone] History of Present illness Narrative* Dominique Shah PharmD - 08/02/2023 9:00 AM EDT Pharmacist Clinic: Anticoagulation Management Daryn Guillermo was referred to the Clinical Pharmacy Team for their anticoagulation management. Referring Provider: Marleen Sigala, ARVIN* PHARMACY ASSESSMENT Allergies Reviewed? Yes Home Pharmacy Reviewed? Yes, describe: fills w/ mail order, [facility] Affordability/Accessibility: cost is a barrier, patient will be screened for VAF PAP, wheelchair bound and has trouble w/ transportation, patient's son helps draft roller picker medications if needed, son lives with her [...] cholesterol range is 130 to 320 mg/dL [id number] Score Appropriate? Yes - dx of afib [id number]-BJRS Score: 5 Age > 75 (+2) Sex Female (+1) CHF hx No (+0) Hypertension hx Yes (+1) Stroke/TIA/thromboembolism hx No (+0) Vascular disease hx (prior OR, peripheral artery disease, aortic plaque) No (+0) [...] all patient questions and concerns - Discussed [facility] PAP and benefits to patient if needed in future - Counseled patient to take Xarelto with food RECOMMENDATIONS/PLAN Anticoagulation - continue current treatment regimen.. Xarelto 20 mg daily Affordability/Accessibility - Screen for [employer] Patient Assistance Program (PAP). Patient is expected to be eligible for this program. Patient declines screening for [facility] PAP at this time. Patient reports new [...] and clinical pharmacy team. documented in this [facility] Work Phone: [phone]) 586-844204-12-2024 History of Present illness Narrative* Marleen Sigala, MAYCO-LINEN ROOM SUPERVISOR, DNP - 07/20/2023 2:30 PM EDT Images [...] this date Cardiovascular hx: Atrial fibrillation, persistent: -[id number]-IFVu Score of 5; currently on Xarelto 20mg; [...] results for input(s): ABO in the last 79672 hours. HEME/ENDO: Recent Labs 05/21/23 1533 03/06/23 [...] (from the past 4464 hour(s)). Echocardiogram: [place] [address] [phone], TRANSTHORACIC ECHOCARDIOGRAM REPORT Patient Name: DARYN GUILLERMO Reading Physician: [id number] Norman Valdivia MD Study Date: 09/11/2022 Referring ANGELIQUE CLARKE Physician: MRN/PID: [id number] PCP: Accession/Order#: [id number] Department [address] Location: Date of : 1945 Fellow: Gender: F Nurse: Admit Date: 09/08/2022 Electrolytic De Scaler: Asia Aquino RVT, BJ Admission Status: Inpatient - Additional Staff: Routine Height: 167.00 cm CC Report to: Weight: 116.00 kg Study Type: Echocardiogram BSA: 2.21 m2 Blood Pressure: 111 /70 mmHg Diagnosis/ICD: I48.0-Paroxysmal atrial fibrillation Indication: AFib Procedure/CPT: Echo Complete w Full Doppler-37202 Patient History: Pertinent History: Previous echo 02-14-2019. [...] LA Area A2C: 26.8 cm2 LA Major [place] A4C: 6.8 cm LA [place] A2C: 5.7 cm LA Volume Index: 44.3 [...] 1.1 m/s (0.6-0.9m/s) PV Max P.5 mmHg [id number] Norman Valdivia MD Electronically signed on 09/11/2022 [...] - Stable; continue atenolol 100 mg daily -[id number]-NKFx Score of 5; currently on Xarelto 20mg; [...] the patient's care. Marleen Sigala DNP, MAYCO, SODA FLAKER-C Division of Cardiovascular Medicine [facility] [place] [facility] documented [facility] Work Phone: 1([phone]) [phone] History of Present illness Narrative* Huan Gilman [...] Good job with that documented in this [facility] Work Phone: [phone]) [phone] Emergency department Note* Flavio Aquino DO - [...] be further evaluated. History provided by: Patient interpreter and translator used: No Bethel Coma Scale Score: 15 Patient History Past [...] Flavio Aquino DO 06/10/231850 documented in this [facility] Work Phone: [phone] Physician Emergency department Note* Flavio Aquino DO [...] be further evaluated. History provided by: Patient interpreter and translator used: No Bethel Coma Scale Score: 15 Patient History Past [...] diabetes mellitus with diabetic chronic kidney disease ([facility]/HCC) 03/07/2022 Stage 3 chronic kidney disease due [...] worse. Procedure Procedures Flavio Aquino DO 06/10/231850 [facility] Work Phone: [phone]) [phone] History of Present illness Narrative* Huan Gilman [...] use of insulin (CMS/HCC) documented in this [facility] Work Phone: [phone]) [phone] History of Present illness Narrative* Huan Gilman [...] get in here this time again Her truck driver instructor lost his pickering to the [employer] van. She was all ready to go today. Could not use wheelchair van. That should be better nexttime. Glaucoma and cataracts - noted to have high pressure but not able to get back to treat. Has been referred to [facility] for a cataract and this in [...] palliative care. 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 Activity- she gets in [...] at bedside and uses bedpan. Goes to [facility] and slide over. Has a walkerbut uses [...] Morbid obesity with BMI of 40.0-44.9, adult ([facility]) Diabetes 1.5, managed as type 2 ([facility]) - metFORMIN (Glucophage) 500 mg [...] cataract of both eyes documented in this [facility] Work Phone: [phone]) [phone] History of Present illness Narrative* Huan Gilman MD - 12/12/2022 1:00 PM EDT Subjective Patient ID: Daryn Guillermo is a 76 y.o. female who presents for Med Management (Itching in regine area). HPI No longer has [facility]. She is not able to get [...] palliative care. 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 Activity- she gets in [...] and uses bedpan. Plans to go to [facility] and slide over. Has awalker but uses [...] knees Vitamin D deficiency [facility] Work Phone: [phone] History of Present illness Narrative* Huan Gilman [...] this date, 10/13/22 for a telehealth visit. [facility] follow up. Admit to [facility] 09/08-11/29. Then at [facility] for [...] a blood pressure of 115/55 mmHg, heart paoc585 beatsa minute, respiratory 20/min saturating 92% room [...] get around BP today 113/56 Weight at [facility] was 248. Review of Systems Objective There were no vitals taken for this visit. Physical Exam Audio only so no exam. Oriented and able to communicate will with no distress. Assessment/Plan Problem List Items Addressed This Visit Asthma Atrial fibrillation ([facility]) - Primary Depression, major, single episode, moderate ([facility]) Diabetes mellitus type 2, controlled ([facility]) Relevant Orders Comprehensive Metabolic Panel Iron deficiency anemia Relevant Medications ferrous gluconate 324 (38 Fe) mg tablet Other Relevant Orders CBC Morbid obesity with BMI of 40.0-44.9, adult ([facility]) Weakness of both lower extremities Other Visit [...] HHC next week and needs that for Fdc. PT probably not going to be helpful. She is to start monitoring BS but has been good. documented in this [facility] Work Phone: [phone]) [phone] NoteSend Summary: Discharge Summary Providers: Provider RoleProvider [...] Intermediate Care Facility Vital Signs: T PRBPMAPSpO2 Value36.94738183/6596% Date/Time09/14 7:5309/14 7:5309/14 7:5309/14 7:5309/14 7:53 Range(36.3C - 36.8C ) (59 - 81 ) (16 - 20 ) (95 - 131 )/ (64 - 82 ) (96% - 98% ) Date: Weight/Scale Type:Height: 08-Sep-2022 19:19508.5 kg / udh450.5 cm Physical Exam: Constitutional: Well developed, obese [...] Pending: None Radiology Results - Pending: None [facility] (more content not included)...[facility]06-03-2023 NoteClinical Event: Clinical Event Note: TopicClinic [...] Note Last Updated: 09-Sep-2022 21:16 by Chidi Torres)[facility]06-02-2023 NoteHistory of Present Illness: Admission Reason: [...] a day. Objective: Objective Information: T PRBPMAPSpO2 Value37.1377735/7098% Date/Time09/08 16: 17: 17: 17: 17:30 Range(37.4C [...] Medications 1. Acetaminophen: 65 (more content not included)...[facility] 12-02-2021 Chief complaint Narrative - Reported* An interactive audio and video telecommunication system which permits real time communications between the patient (at the originating site) and provider (at the distant site) was utilized to providethis telehealth service. * Verbal consent was requested and obtained from DARYN GUILLERMO on this date, 12/02/2021 03:30 PM , for a telehealth visit. * [facility] 1([phone]) 351-874205-26-2022 Chief complaint Narrative - Reported* An interactive audio and video telecommunication system which permits real time communications between the patient (at the originating site) and provider (at the distant site) was utilized to providethis telehealth service. * Verbal consent was requested and obtained from DARYN GUILLERMO on this date, 09/01/2021 11:30 AM , for a telehealth visit. * [facility] certification [facility] Work Phone: [phone] History of Present illness Narrative* Asthma - [...] no longer. 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 Done with all of that. She is [...] CSA 10/30/19 -[facility] Work Phone: [phone]) [phone] History of Present illness Narrative* Asthma - [...] no longer. 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 Done with all of that. She is [...] expected for medication profile * CSA 10/30/19 [facility] Work Phone: [phone]) [phone] History of Present illness Narrative* Finally able [...] no longer. 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 Done with all of that. She is [...] CSA 10/30/19 -[facility] Work Phone: [phone]) 384-359307-30-2021 Chief complaint Narrative - Reported* An interactive [...] Wheelchair evaluation -[facility] Work Phone: [phone] History of Present illness Narrative* 75-year-old female [...] every day and has been largely controlled. [employer] Work Phone: [phone] History of Present illness Narrative* 76-year-old female [...] * Problem #2 hypertension * -Controlled today [email or web address] Work Phone: Consult note Author Jones Greer [facility] Note Date/Time July 01, 2024 2:0 7pm [facility] Medical Records Department [address] [place] [address] Anesthesia Postop Eval I 07/01/24 1406 MR#: [id number] Acct: [id number] Name: DARYN GUILLERMO BLANE Rep #:[id number] 1 : 1945 78 From: Jones Greer PCP: April Mullen MD Status:REG SDC Y Race: C Location: [place] [address] Anesthesia: Postop Eval I Current Vital Signs [...] document: Postop Eval 1 completed: Yes 07/01/24 0800 <Electronically signed by Jones Greer > Date _ Jones Greer Marcialignfaotu Signature: Date CC: ~ Signed [facility] Work Phone: Consult note Author Jurgen Rosario [facility] Note Date/Time October 28, 2024 11:3 4am [facility] Medical Records Department [address] [place] [address] Pre-Anesthesia Evaluation 10/28/24 1130 MR#: [id number] Acct: [id number] Name: DARYN GUILLERMO BLANE Rep #:[id number] : 1945 78 From: Jurgen Licea PCP: pAril Mullen MD Status:REG SDC Y Race: C Location: [place] [address] ASA Classification* ASA Classification ASA Classification: 4 [...] Procedure(s): EGD Anesthesia History Anesthesia History - sound tester: Anesthesia History - sound tester Hx Hospitalization Yes: [facility] 10/21/24 08:35 Any [...] take am of surgery PONV PONV - sound tester: PONV - sound tester Female Yes 10/21/24 08:35 HX of Motion [...] 10/28/24 10:53 Respiratory Assessment Respiratory Assessment - sound tester: Respiratory Tract Infection Hx - sound tester Hx Respiratory Tract Infection No 10/21/24 08:35 STOP Sleep Apnea STOP Sleep Apnea - sound tester: STOP Sleep Apnea - sound tester Hx Hypertension Yes 10/21/24 08:35 Hx Sleep [...] Tobacco Use History Tobacco Use History - sound tester: Tobacco Use History - sound tester Tobacco Use Smoking Status Never smoker 10/21/24 08:35 Hx Tobacco Use No 10/21/24 08:35 Years Smoking Packs Smoked per Day Smoking Cessation Date was within the last 15 years Hx Smoking Cessation Date Hx Smoking Cessation Counseling Hematologic Medial History Hematologic Hx - sound tester: Hematologic Medical Hx - steward/stewardess deck Hx of Blood Transfusion No 10/21/24 08:35 Hx of Transfusion in last 3 No 10/21/24 08:35 Months Date of Last Transfusion (if within last 3 months) Ever experience any problems No 10/21/24 08:35 with transfusion(s)? Specify any problems Hx of Preganancy in last 3 No 10/21/24 08:35 Months Nurse Filling Out Transfusion [facility] 10/21/24 08:35 & Questions: Date: 10/21/24 10/21/24 08:35 Time: 08:37 10/21/24 08:35 Patient unable to answer at this time (ie. confused, unrespo /Reproduction History /Reproductive History - sound tester: /Reproductive Hx- sound tester Hx Now No 10/21/24 08:35 Gestational Age [...] (Reviewed 10/09/24 @ 15:04 by Yennifer Pemberton FINANCIAL SALES PROFESSIONAL, FINANCIAL SALES PROFESSIONAL-C) Mother Alzheimer dementia Breast cancer Heart disease Brother Cystic fibrosis Surgical History (Reviewed 10/09/24 @ 15:04 by Yennifer Pemberton FINANCIAL SALES PROFESSIONAL, FINANCIAL SALES PROFESSIONAL-C) History of colonoscopy S/P laminectomy History of tubal ligation Hx of cholecystectomy H/O section Social History (Reviewed 10/09/24 @ 15:04 by Yennifer Pemberton FINANCIAL SALES PROFESSIONAL, FINANCIAL SALES PROFESSIONAL-C) Smoking Status: Never smoker alcohol intake: never Review of Systems (Anesthesia) ROS Narrative System reviewed and no additional complaints, except as documented. 10/28/24 1134 <Electronically signed by Jurgen Rosario MD> Date _ Jurgen Cejaign Signature: Date CC: ~ Signed [facility] Work Phone: Consult note Author Jones Greer [facility] Note Date/Time October 28, 2024 12:2 9pm [facility] Medical Records Department [address] [place] [address] Anesthesia Postop Eval I 10/28/24 1228 MR#: [id number] Acct: [id number] Name: DARYN GUILLERMO BLANE Rep #:[id number] 3 : 1945 78 From: Jones Greer PCP: April Mullen MD Status:REG SDC Y Race: C Location: [place] [address] Anesthesia: Postop Eval I Current Vital Signs [...] Jones Acevedo Signature: Date CC: ~ Signed [facility] Work Phone: Consult note Author Jurgen [facility] Note Date/Time October 28, 2024 12:3 3pm [facility] Medical Records Department [address] [place] [address] Anesthesia Postop Eval II 10/28/24 1232 MR#: [id number] Acct: [id number] Name: DARYN GUILLERMO BLANE Rep #:[id number] : 1945 78 From: Jurgen Licea PCP: April Mullen MD Status:ABE VINCENT Y Race: C Location: [place] [address] Anesthesia Postop Eval I Sum Postop Eval [...] MD Cosigner Signature: Date CC: ~ Signed [facility] Work Phone: Consult note Author Savannah Delacruz [facility] Note Date/Time November 18, 2024 11 :06am [facility] Medical Records Department [address] [place] [address] Counseling Note - Pharmacy 11/18/24 0949 MR#: [id number] Acct: [id number] Name: DARYN GUILLERMO Rep #:[id number] : 1945 78 From: Savannah Delacruz PCP: Dr. Delgado Amaro, DO Status:ADM IN Y Location: [facility] [place] Med Reconciliation Pharmacy Service has performed discharge medication reconciliation for this patient. Patient being discharged to [facility]. The patient's discharge medication list [...] Signature (if applicable): Date CC: ~ Signed [facility] Work Phone: Discharge summary Author Kenyon Shin [facility] Note Date/Time November 09, 2024 6:4 5am [facility] Medical Records Department [address] [place] [address] Emergency Department Summary 11/09/24 MR#: [id number] Acct: [id number] Name: DARYN GUILLERMO Rep #:[id number] 1 : 1945 78 From: Kenyon Drew [...] on 20 previously. Prior similar symptoms: Yes [facility] Medical History Post-menopausal History of ulceration [...] cannula however presented 90% on room air. [facility] basic labs for kidney function will check [...] clinician: Hospitalist This note was generated with [employer] dictation software. It may contain incorrectwords, spelling, [...] % (Auto) 57.8 Lymph % (Auto) 32.8 [place] % (Auto) 6.5 Eos % (Auto) 1.6 [...] [place] 9.[place] [address] H Radiography Diagnostic Testing: Clinical Impression(s) from Imaging Studies Chest X-Ray 11/09/24 05:10 IMPRESSION: Possible asymmetric edema or consolidation in the right central lung. Recommendfollow up imaging. Reading Location: [place] [address] Discharge Plan Dx/Rx/DC Orders Clinical Impression: CHF exacerbation, Acute renal insufficiency, Failure of outpatient treatment, A- fib, Chronic anticoagulation Disposition Disposition: Acute Care [facility] What to do if you have Problems For any increased pain, shortness of breath, bleeding, nausea or vomiting, chestpain, or any unexpected problems, contact your Primary Care Provider. Call [facility] ([phone]) or report to the closest Emergency Room. Call 911 if necessary. 11/09/24 0645 <Electronically signed by Kenyon Drew> Cosigner Signature (if applicable): CC: Dr. Delgado Amaro DO ~ Signed [facility] Work Phone: Discharge summary Author Shabbir Ricks [facility] Note Date/Time November 18, 2024 9: 45am [facility] Medical Records Department [address] [place] [address] Transfer to [facility] MR#: [id number] Acct: [id number] Name: DARYN GUILLERMO Rep #:[id number] : 1945 78 From: Shabbir loredo MD PCP: Dr. Delgado Amaro DO Status:ADM IN Certification of patient admission REQUIRED AT TIME OF ADMISSION. I CERTIFY THAT POST-HOSPITAL ECF SERVICES ARE REQUIRED TO BE GIVEN ON AN IN-PATIENT BASIS BECAUSE OF THE ABOVE NAMED PATIENT'S NEED FOR LONGTERM CARE ON A CONTINUING BASIS FOR THE CONDITION(S) FOR WHICH HE/SHE WAS RECEIVING IN-PATIENT HOSPITAL SERVICES PRIOR TO HIS/HER TRANSFER [facility]. 11/18/24 0945<Electronically signed by Shabbir Ricks [...] cardiac, CCD with 1750ml fluid restriction per PRESS CLIPPER recommendations. Will order 240ml mixed apodaca ensure [...] in before D/C Order can be placed): [facility] 11/18/24 0943 <Electronically signed by Shabbir Ricks MD> Cosigner Signature (if applicable): CC: SHAILESH Rowland; Dr. Edmundo Monge DO; Dr. Emily Cummings MD; Dr.Scott Prem DO ~ 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, managed as type 2 ([facility]/HCC) Anxiety Anxiety state, unspecified Venous stasis ulcer with varicose veins of lower extremity ([facility]) Chronic atrial fibrillation ([facility]) Atrial fibrillation Depression, major, single episode, moderate ([facility]) Morbid obesity with BMI of 40.0-44.9, adult ([facility]) 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, without long-term current use of insulin ([facility]) documented in this encounter [facility] Work Phone: [phone] note* Diagnosis Contusion of right foot, initial encounter- Primary Hematoma of right foot documented in this encounter [facility] Work Phone: [phone] note* Diagnosis Hematoma of right foot- Primary Anxiety Anxiety state, unspecified documented in this encounter [facility] Work Phone: [phone] note* Diagnosis Persistent atrial fibrillation (Multi)- Primary Atrial fibrillation documented in this encounter [facility] Work Phone: [phone] note* Diagnosis Persistent atrial fibrillation (Multi) Atrial fibrillation documented in this encounter [facility] Work Phone: [phone] note* Diagnosis Vitamin D deficiency- Primary Chronic atrial fibrillation (Multi) Atrial fibrillation Diabetes 1.5, managed as type 2 (Multi) 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) Other disorders of neurohypophysis documented in this encounter [facility] Work Phone: [phone] note* Diagnosis Vertebral osteomyelitis (Multi)- Primary Unspecified osteomyelitis, other specified site documented in this encounter [facility] Work Phone: Evaluation note* Diagnosis S/P laminectomy- Primary Other postprocedural status documented in this encounter [facility] Work Phone: Evaluation note* Diagnosis Hyponatremia- Primary Hyposmolality and/or hyponatremia Hyponatremia Hyposmolality and/or hyponatremia Benign essential hypertension Essential hypertension, benign Iron deficiency anemia secondary to inadequate dietary iron intake Mixed hyperlipidemia documented in this encounter [facility] Work Phone: Evaluation note* Diagnosis Discitis, [...] or lung (Multi) documented in this encounter [facility] Work Phone: Evaluation note* Diagnosis Spondylosis with myelopathy, thoracic region- Primary documented in this encounter [facility] Work Phone: Evaluation note* Diagnosis Vertebral osteomyelitis (Multi)- Primary Unspecified osteomyelitis, other specified site Discitis, unspecified, thoracic region documented in this encounter [facility] Work Phone: History and physical note Author Jacinto Munoz [facility] Note Date/Time October 28, 2024 11:4 7am [facility] Medical Records Department [address] [place] [id number] History & Physical Exam 10/28/24 1144 MR#: [id number] Acct: [id number] Name: DARYN GUILLERMO BLANE Rep #:[id number] : 1945 78 From: Jacinto Munoz DO PCP: April Mullen MD Status:[facility] Location: [place] [id number] HPI - General General Date of Admission: 10/28/24 Date of Service: 10/28/24 Chief Complaint: Anemia HPI Narrative DARYN GUILLERMO, is a 78 F who presents with Chief Complaint: anemia [facility] ED 12.4.24 with low Hgb 6.9 BGI [...] Resected and retrieved. Clip was placed. Clip windows application packager: Jada Beauty. OV 07.31.24 Pt here today to review results of endoscopy. She has no GI complaints. She denies dark or tarry stools. She continues with pantoprazole 40 mg daily and iron. She is having a bm every 2-3 days and feels mild constipationfrom the iron. Last hgb 11.4 (4.15.25). [facility] Medical History Post-menopausal History of ulceration Gastric [...] April Mullen MD; Jacinto Munoz DO~ Signed [facility] Work Phone: History and physical note Author Emily Cummings [facility] Note Date/Time November 09, 2024 7:5 7am [facility] Medical Records Department [address] [place] [address] H&P Exam - Hospitalist 11/09/24 0747 MR#: [id number] Acct: [id number] Name: DARYN GUILLERMO BLANE Rep #:[id number] : 1945 78 From: Emily Cummings MD PCP: Dr. Delgado Amaro DO Status:ADM IN Location: [place] [id number] HPI - General General Date of Admission: 11/09/24 Date of Service: 11/09/24 Chief Complaint: Lower extremity swelling and shortness of breath HPI Narrative DARYN GUILLERMO, is a 78-year-old female history of heart failure with reduced ejection fraction, diabetes, A-fib on Eliquis, COPD, GERD, depression and anxiety who presented [facility] ED 11/09/2024 due to increasing lower [...] with patient and [facility] coming Sunday for routine evaluation [...] to stay here and follow-up outpatient with [place] on discharge. [facility] Medical History Post-menopausal History of ulceration Gastric [...] % (Auto) 57.8, Lymph % (Auto) 32.8, [place] % (Auto) 6.5, Eos % (Auto) 1.6, [...] H, Calcium 9.1, [place] [address] H Imaging Radiology Impression Chest X-Ray 11/09/24 05:10 IMPRESSION: Possible asymmetric edema or consolidation in the right central lung. Recommendfollow up imaging. Reading Location: [facility] Assessment & Plan Assessment/Plan (1) CHF exacerbation: [...] than 3 months ago -Does follow with [facility] on an outpatient basis and was last seen 10/09/2024 -Daily weights, I's and O's -Fluid restriction, heart healthy diet #SANDRA - Suspect cardiorenal - Baseline creatinine around 1.19, today 1.58 - Suspect this will improve with IV diuresis - Repeat in the a.m., avoid nephrotoxic agents as able # Severe aortic valve stenosis - Patient already scheduled to follow-up with [facility] for her heart valve in November, she reports this is on Sunday - Patient vitally stable and not hypoxic - Suspect she will just need IV diuresis for improvement in symptoms and then can be discharged to follow-up with [facility] for outpatient evaluation -There does not [...] Cummings MD Charges/Coding Visit Charges Inpatient E&M: 74221 Init Hosp L2 11/09/24 3047 <Electronically signed by Emily Cummings MD> Cosigner Signature (if applicable): CC: Dr. Emily Cummings MD; Dr. Delgado Amaro DO~ Signed [facility] Work Phone: History of Present illness [...] in their home. * Based on this qikk-en-evfe evaluation, the patient has functional limitations that [...] home for palliative care, PT, OT and [employer]. She is realizing that she cannot do anything about many of the things. Seemed to get worse after Cody from Palliative care put her on Effexor and now it is costly do will go back to Paxil. adoption worker from [facility] comes monthly. . She is [...] History of Present illness Narrative* Has changed [facility] companies and needs new certification. She [...] for HHC. 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 She is realizing that she cannot do [...] appropriate to continue to prescribe this medication. [facility] Work Phone: History of Present [...] palliative care. 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 She is realizing that she cannot do [...] of Present illness Narrative* No longer has [facility]. She is doing better and able [...] palliative care. 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 . She is realizing [...] palliative care. 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 . She is realizing [...] and uses bedpan. Plans to go to [facility] and slide over. Has a walker but [...] herabout it -[facility] Work Phone: Hospital Discharge instructions* Attachments The following attachments cannot be sent through Care Everywhere. * Minor Contusion ED ([place]) [facility]: reason for referral (narrative)* Consultation (Routine) - Authorized Specialty Diagnoses / Procedures Referred By Contac t Referred To Contact 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, managed as type 2 (CMS/HCC) Procedures Follow Up In Primary Care - Established Huan Gilman MD [address] [facility], [facility] [address] [place] [id number] Referral ID Status Reason Start Date Expiration Date V isits Requested Visits Authorized [id number] Authorized 03/13/2023 03/12/2024 1 1 [facility] Work Phone: reason for referral (narrative)* Consultation (Routine) - Authorized Specialty Diagnoses / Procedures Referred By Contac t Referred To Contact 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, managed as type 2 (CMS/HCC) Procedures Follow Up In Primary Care - Established Huan Gilman MD [address] [place] [facility], [facility] [address] [place] [address] Referral ID Status Reason Start Date Expiration Date V isits Requested Visits Authorized [id number] Authorized 04/20/2023 04/19/2024 1 1 [facility] Work Phone: reason for referral (narrative)* Consultation (Routine) - Authorized Specialty Diagnoses / Procedures Referred By Contac t Referred To Contact Pharmacy Diagnoses Persistent atrial fibrillation (Multi) Marleen Sigala, [employer] ROOM SUPERVISOR, DNP [address] [facility], [address] [place] [address] [facility] [address] [place] [address] Referral ID Status Reason Start Date Expiration Date Visits Requested Visits Authorized [id number] Authorized Specialty Services Required 07/20/2023 07/19/2024 1 1 [facility] Work Phone: Reason for referral (narrative)* Consultation (Routine) - Authorized Specialty Diagnoses / Procedures Referred By Contac t Referred To Contact Primary Care Procedures Follow Up In Primary Care - Established Huan Gilman MD [address] [facility], [facility] [address] [place] [address] Referral ID Status Reason Start Date Expiration Date V isits Requested Visits Authorized [id number] Authorized 08/20/2023 08/19/2024 1 1 [facility] Work Phone: Reason for referral (narrative)No reason for [facility]: Reason for visit Narrative* Auth/Cert Specialty Diagnoses / Procedures Referred By Contac t Referred To Contact Diagnoses Metastatic Lesions/Thoracic spine Procedures No coded [place] [address] [place] [address] [facility] [address] [place] [address] Referral ID Status Reason Start Date Expiration Date Visits Re quested Visits Authorized [id number] 1 1 [facility] Work Phone: Summary Purpose Family History [...] Will Yes March 28 11:57am Power of Fibre Composite Technician Yes March 28, 2024 11:57am Name of Medical Power of Fibre Composite Technician eva barrientos March 28, 2024 11:57am Advance Directive Response Recorded Date/ Time Living Will Yes March 28 12:57pm Do you have a Healthcare Pow er of Fibre Composite Technician? Yes March 28, 2024 12:57pm Name of Medical Power of Fibre Composite Technician eva barrientos March 28, 2024 12:57pm Living Will No June 30, 2024 11:18am Do you have a Healthcare Pow er of Fibre Composite Technician? Yes June 30, 2024 11:18am Name of Medical Power of Fibre Composite Technician SON June 30, 2024 11:18am Advance Directive Response Recorded Date/ Time Living Will No June 30, 2024 11:18am Do you have a Healthcare Power of Fibre Composite Technician? Yes June 30, 2024 11:18am Name of Medical Power of Fibre Composite Technician SON June 30, 2024 11:18am Advance Directive Response Recorded Date/ Time Living Will No June 30, 2024 11:18am Do you have a Healthcare Power of Fibre Composite Technician? Yes June 30, 2024 11:18am Name of Medical Power of Fibre Composite Technician SON June 30, 2024 11:18am Do you have a Healthcare Power of Fibre Composite Technician? Yes October 21, 2024 8:35am Advance Directive Response Recorded Date/ Time Do you have a Healthcare Power of Fibre Composite Technician? Yes October 21, 2024 8:35am Do you have a Healthcare Power of Fibre Composite Technician? No November 09, 2024 4:28am Advance Directive Response Recorded Date/ Time Do you have a Healthcare Power of Fibre Composite Technician? Yes October 21, 2024 8:35am Do you have a Healthcare Power of Fibre Composite Technician? Yes November 09, 2024 9:08am Name of Medical Power of Fibre Composite Technician alexa guillermo November 09, 2024 9:08am Chief [...] [place] [address] [facility] [place] [address] Referral ID Status Reason Start Date Expiration Date Visits Requested Visits Authorized [id number] Pending Review Perform Procedure 11/20/2023 11/19/2024 3 3 Specialty Diagnoses / Procedures Referred By Akiko delgado Referred To Contact Pulmonary Disease / Pulmonology [place] [address] [place] [address] Referral ID Status Reason Start Date Expiration Date Visits Requested Visits Authorized [id number] Authorized Specialty Services Required 11/20/2023 11/19/2024 1 1 Specialty Diagnoses / Procedures Referred By Contac t Referred To Contact Radiology Diagnoses Vertebral osteomyelitis (Multi) Discitis, unspecified, thoracic region Procedures NM PET CT bone skull base [place] [address] [place] [address] Referral ID Status Reason Start Date Expiration Date Visits Requested Visits Authorized [id number] Pending Review Perform Procedure 12/27/2023 12/26/2024 3 3 Chief Complaint and Reason for Visit Chief Complaint Admit Date LONGTERM LAB WORK February 26 4:00am LONGTERM LAB WORK March 28 4:00am abnormal labs March 28, 2024 11:52am LONGTERM LAB WORK April 03 5:00am LONGTERM LAB WORK April 07 5:00am LONGTERM LAB WORK April 14, 2024 5:00am Anemia April 28, 2024 1 0:28am LONGTERM LAB WORK May 12, 2024 7:20am LONGTERM LAB WORK May 27 4:00am LABOWRK June 02, 2024 5:00am LONGTERM LAB WORK June 03 4:00am LABWORK June 04, 2024 5:00am Reason for Visit Admit Date Anemia April 28, 2024 1 0:28am Chief Complaint Admit Date LONGTERM LAB WORK March 28 4:00am abnormal labs March 28, 2024 11:52am LONGTERM LAB WORK April 03 5:00am LONGTERM LAB WORK April 07 5:00am LONGTERM LAB WORK April 14, 2024 5:00am Anemia April 28, 2024 1 0:28am LONGTERM LAB WORK May 12, 2024 7:20am LONGTERM LAB WORK May 27 4:00am LABOWRK June 02, 2024 5:00am LONGTERM LAB WORK June 03 4:00am LABWORK June 04, 2024 5:00am Reason for Visit Admit Date Anemia April 28, 2024 1 0:28am Anemia July 01, 2024 11: 19am Chief Complaint Admit Date LONGTERM LAB WORK March 28 4:00am abnormal labs March 28, 2024 11:52am LONGTERM LAB WORK April 03 5:00am LONGTERM LAB WORK April 07 5:00am LONGTERM LAB WORK April 14, 2024 5:00am Anemia April 28, 2024 1 0:28am LONGTERM LAB WORK May 12, 2024 7:20am LONGTERM LAB WORK May 27 4:00am LABOWRK June 02, 2024 5:00am LONGTERM LAB WORK June 03 4:00am LABWORK June 04, 2024 5:00am LONGTERM LAB WORK June 24, 2024 5 :00am Chief Complaint Admit Date Anemia April 28, 2024 1 0:28am LONGTERM LAB WORK May 12, 2024 7:20am LONGTERM LAB WORK May 27 4:00am LABOWRK June 02, 2024 5:00am LONGTERM LAB WORK June 03 4:00am LABWORK June 04, 2024 5:00am LONGTERM LAB WORK June 24, 2024 5 :00am LONGTERM LAB WORK July 22, 2024 5 :00am [...] 2024 8:5 2am Chief Complaint Admit Date LONGTERM LAB WORK June 24, 2024 5 :00am LONGTERM LAB WORK July 22, 2024 5 :00am AFIB, CHF, HTN (APRIL GUDIA) July 10:52am Test Result July 31, 2024 8:5 2am CHF August 13, 2024 8:06am Congestive heart failure August 13, 2024 1 0:41am LONGTERM LAB WORK August 19, 2024 5:0 0am LONGTERM LAB WORK September 16, 2024 5: 00am [...] 2024 2:38p m Chief Complaint Admit Date LONGTERM LAB WORK July 22, 2024 5 :00am AFIB, CHF, HTN (APRIL KALISTEVEMaria Luisa) July 10:52am Test Result July 31, 2024 8:5 2am CHF August 13, 2024 8:06am Congestive heart failure August 13, 2024 1 0:41am LONGTERM LAB WORK August 19, 2024 5:0 0am LONGTERM LAB WORK September 16, 2024 5: 00am [...] 2024 10:2 7am Chief Complaint Admit Date LONGTERM LAB WORK July 22, 2024 5 :00am AFIB, CHF, HTN (APRIL PAULINO) July 10:52am Test Result July 31, 2024 8:5 2am CHF August 13, 2024 8:06am Congestive heart failure August 13, 2024 1 0:41am LONGTERM LAB WORK August 19, 2024 5:0 0am LONGTERM LAB WORK September 16, 2024 5: 00am [...] 2024 7:4 7am Chief Complaint Admit Date LONGTERM LAB WORK July 22, 2024 5 :00am AFIB, CHF, HTN (APRIL PAULINO) July 10:52am Test Result July 31, 2024 8:5 2am CHF August 13, 2024 8:06am Congestive heart failure August 13, 2024 1 0:41am LONGTERM LAB WORK August 19, 2024 5:0 0am LONGTERM LAB WORK September 16, 2024 5: 00am [...] DATE CREATED AUTHOR AUTHOR'S ORGANIZ ATION 10/24/2020 [facility] DATE CREATED AUTHOR AUTHOR'S ORGANIZ ATION 06/05/2022 [employer] DATE CREATED AUTHOR AUTHOR'S ORGANIZ ATION 09/30/2022 [facility] DATE CREATED AUTHOR AUTHOR'S ORGANIZ ATION 11/15/2023 [facility] DATE CREATED AUTHOR AUTHOR'S ORGANIZ ATION 11/17/2023 [facility] DATE CREATED AUTHOR AUTHOR'S ORGANIZ ATION 03/02/2024 [facility] DATE CREATED AUTHOR AUTHOR'S ORGANIZ ATION 07/16/2024 [facility] DATE CREATED AUTHOR AUTHOR'S ORGANIZ ATION 09/20/2024 [facility] DATE CREATED AUTHOR AUTHOR'S ORGANIZ ATION 11/09/2024 [facility] DATE CREATED AUTHOR AUTHOR'S ORGANIZ ATION 11/19/2024 [facility] Reason for Visit (unrecogniz ed [...] Huan Gilman MD [address] [facility], [place] [id number] Referral ID Status Reason Start Date Expiration Date V isits Requested Visits Authorized [id number] Authorized 08/31/2022 02/27/2023 1 1 Reason Comments Med Management Increased depression Reason Comments Follow-up Specialty Diagnoses / Procedures Referred By Contac t Referred To Contact 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, managed as type 2 (CMS/HCC) Procedures Follow Up In Primary Care - Established Huan Gilman MD [address] [facility], [place] [id number] Referral ID Status Reason Start Date Expiration Date V isits Requested Visits Authorized [id number] Authorized 03/13/2023 03/12/2024 1 1 Reason Comments Foot Injury Dropped a soup can o nto her right foot. +swelling. Able to move toes. Reason Comments Follow-up ER for right foot co ntusion Reason Comments Atrial Fibrillation Specialty Diagnoses / Procedures Referred By Akiko delgado Referred To Contact Pharmacy Diagnoses Persistent atrial fibrillation (Multi) Marleen Sigala, [employer] WASH[employer]-LINEN ROOM SUPERVISOR, DNP [address] [facility], [address] [place] [address] [facility] [address] [place] [address] Referral ID Status Reason Start Date Expiration Date Visits Requested Visits Authorized [id number] Authorized Specialty Services Required 07/20/2023 07/19/2024 1 1 Reason Comments Med Management Specialty Diagnoses / Procedures Referred By Akiko delgado Referred To Contact Primary Care Diagnoses Chronic atrial fibrillation (Multi) Procedures Follow Up In Primary Care - Established Huan Gilman MD [address] [facility], [address] [place] [address] Referral ID Status Reason Start Date Expiration Date V isits Requested Visits Authorized [id number] Authorized 05/21/2023 05/20/2024 1 1 Reason Comments [...] Procedures IP Renetta Romero MD [address] [place] [address] [address] Referral ID Status Reason Start Date Expiration Date Visits Re quested Visits Authorized [id number] 1 1 Reason Comments Post-op Pt has complaints of back pain where her roberta are that's described as a intermittent aching. Reason Comments Appointment Appointment Care Teams (unrecognized sec tion and content) Soap Chipper Relationship Specialty Start Date End Date Huan Gilman MD [address] [facility], [address] [place] [address] PCP - General 12/10/18 Huan Gilman MD [address] [facility] [address] [place] [address] PCP - [place] [employer] PCP 10/07/21 Diana Marcano MA Church History ProfessorEhs Teacher 10/11/22 Soap Chipper Relationship Specialty Start Date End Date Huan Gilman MD [address] [facility] [address] [place] [address] PCP - General 12/10/18 Huan Gilman MD [address] [facility] [address] [place] [address] PCP - [employer] PCP 10/07/21 Diana Marcano MA Church History ProfessorEhs Teacher 10/11/22 Soap Chipper Relationship Specialty Start Date End Date Huan Gilman MD [address] [facility] [address] [place] [address] PCP - General 12/10/18 Huan Gilman MD [address] [facility] [address] [place] [address] PCP - [place] PCP 10/07/21 Soap Chipper Relationship Specialty Start Date End Date Huan Gilman MD [address] [facility] [address] [place] [address] PCP - General 12/10/18 Huan Gilman MD [address] [facility] [address] [place] [address] PCP - [employer]vantage PCP 10/07/21 Soap Chipper Relationship Specialty Start Date End Date Huan Gilman MD [address] [facility] [address] [place] [address] PCP - General 12/10/18 Huan Gilman MD [address] [facility] [address] [place] [address] PCP - [employer] PCP 10/07/21 Soap Chipper Relationship Specialty Start Date End Date Huan Gilman MD [address] [facility] [address] [place] [address] PCP - General 12/10/18 Huan Gilman MD [address] [facility] [address] [place] [address] PCP - [employer] PCP 10/07/21 Huan Gilman MD [address] [facility] [address] [place] [address] PCP - [employer] Advantage PCP 05/10/23 Soap Chipper Relationship Specialty Start Date End Date Haun Gilman MD [address] [facility] [address] [place] [address] PCP - General 12/10/18 Huan Gilman MD [address] Formerly [facility], [address] [place] [address] PCP - [employer] Medicare Advantage PCP 10/07/21 Huan Gilman MD [address] Formerly [facility], [address] [place] [address] PCP - [employer] Medicare Advantage PCP 05/10/23 Soap Chipper Relationship Specialty Start Date End Date Huan Gilman MD [address] Formerly [facility], [address] [place] [address] PCP - General 12/10/18 Huan Gilman MD [address] Formerly [facility] [address] [place] [address] PCP - [employer] Medicare [employer]vantage PCP 05/10/23 Soap Chipper Relationship Specialty Start Date End Date Huan Gilman MD [address] Formerly [facility] [address] [place] [address] PCP - General 12/10/18 Huan Gilman MD [address] Formerly [facility] [address] [place] [address] PCP - [employer] Medicare [employer]vantage PCP 05/10/23 Soap Chipper Relationship Specialty Start Date End Date Huan Gilman MD [address] Formerly [facility] [address] [place] [address] PCP - General 12/10/18 Huan Gilman MD [address] Formerly [facility] [address] [place] [address] PCP - [employer] Medicare [employer]vantage PCP 05/10/23 Soap Chipper Relationship Specialty Start Date End Date Huan Gilman MD [address] Formerly [facility] [address] [place] [address] PCP - General 12/10/18 Huan Gilman MD [address] Formerly [facility] [address] [place] [address] PCP - [employer]vantage PCP 05/10/23 Soap Chipper Relationship Specialty Start Date End Date Huan Gilman MD [address] Formerly [facility] [address] [place] [address] PCP - General 12/10/18 Huan Gilman MD [address] Formerly [facility] [address] [place] [address] PCP - [employer]vantage PCP 05/10/23 Soap Chipper Relationship Specialty Start Date End Date Huan Gilman MD [address] Formerly [facility] [address] [place] [address] PCP - General 12/10/18 Huan Gilman MD [address] Formerly [facility] [address] [place] [address] PCP - [employer]vantage PCP 05/10/23 Soap Chipper Relationship Specialty Start Date End Date Huan Gilman MD [address] Formerly [facility], [facility] [address] [place] [address] PCP - General 12/10/18 Huan Gilman MD [address] [employer] Formerly [facility] [address] [place] [address] PCP - [employer] Medicare Advantage PCP [...] 2024 End: October 09, 2024 Yennifer Pemberton FINANCIAL SALES PROFESSIONAL, FINANCIAL SALES PROFESSIONAL-C Attending Provider Active Start: October 09, 2024 [...] End: October 09, 2024 Yennifer Pemberton NP, FINANCIAL SALES PROFESSIONAL-C Attending Provider Active Start: October 09, 2024 [...] 2024 End: October 09, 2024 Yennifer Pemberton FINANCIAL SALES PROFESSIONAL, FINANCIAL SALES PROFESSIONAL-C Attending Provider Active Start: October 09, 2024 [...] S tart: November 11, 2024 Jeri Rowland FINANCIAL SALES PROFESSIONAL-C Other Provider Active S tart: November 11, [...] tart: November 12, 2024 Jeri Rowland , FINANCIAL SALES PROFESSIONAL-C Other Provider Active S tart: November 12, [...] tart: November 13, 2024 Jeri Rowland , FINANCIAL SALES PROFESSIONAL-C Other Provider Active S tart: November 13, [...] tart: November 14, 2024 Jeri Rowland , FINANCIAL SALES PROFESSIONAL-C Other Provider Active S tart: November 14, [...] tart: November 15, 2024 Jeri Rowland , FINANCIAL SALES PROFESSIONAL-C Other Provider Active S tart: November 15, [...] S tart: November 16, 2024 Jeri Rowland FINANCIAL SALES PROFESSIONAL-C Other Provider Active S tart: November 16, [...] t: November 17, 2024 Jeri Rowland , FINANCIAL SALES PROFESSIONAL-C Other Provider Active S tart: November 17, [...] t: November 17, 2024 Jeri Rowland , FINANCIAL SALES PROFESSIONAL-C Other Provider Active S tart: November 17, [...] t: November 18, 2024 Jeri Rowland , FINANCIAL SALES PROFESSIONAL-C Other Provider Active S tart: November 18, [...] (Due) 0636 (Due - Provider: Kenya Vera, PROGRAM ADMIN)1999 (Due) 06 ([employer] - Provider: Ladi Kaba, INTERPRETER AND TRANSLATOR)1999 (Due) phenazopyridine (Pyridium) tablet 200 mg 200 [...] Ibrahim RN) 0839 (Given - Provider: Ethel Iverson, [...] First dose on Sun11/09/23 at 1300, Mini-Bag Plus/ADD-[place] bag, Dosing of this medication varies based [...] or prosecute any alcohol or drug abuse patient.[facility] Campus[facility] the event this information is protected by the Federal Confidentiality of Alcohol and Drug Abuse Patient Records regulations: The Federal rules restrict any use of the information to criminally investigate or prosecute any alcohol or drug abuse patient.[facility] FOR RECORDS PERTAINING TO PATIENTS WHO ARE [...] BE BASED ON THE PRIMARY CLINICAL RECORDS. [facility] [employer] [facility]. provides no warranty or guarantee of the accuracy or completeness of information in this document.
[2024-11-20] MEDS: Albumin Human 25% (50 mL) 12.5 GM/50 ML IV.SOLN IV (05:10)
[2024-11-20] MEDS: 0.9% Saline Lock 10 ML Syringe IV ×3 (05:24→16:48)
[2024-11-20 05:40] LABS: Hematocrit 34.6 % (37-47); Hemoglobin 10.5 g/dL (12.0-15.0); Immature Granulocytes Count 0.070 X10^3/uL (0.0-0.0); Mean Corp Hgb Conc 30.3 g/dL (32-36); Mean Corpuscular Volume 88.0 fL (81-99); Mean Platelet Vol. 11.1 fl (6.2-12.0); NRBC Flagged by Analyzer 0.2 % (0-5); Platelet Count 165 K/mm3 (150-450); RBC Distribution Width CV 18.1 % (11.6-14.6); RBC Distribution Width SD 57.0 fl (35.1-43.9); Red Blood Count 3.93 M/mm3 (4.2-5.4); White Blood Count 12.7 K/mm3 (4.4-11.0)
[2024-11-20 06:18] LABS: AST(SGOT) 215 U/L (<=31); Alanine Aminotransfer ALT/SGPT 457 U/L (<=34); Albumin, Serum 3.4 g/dL (3.4-4.8); Alkaline Phosphatase 200 U/L (35-104); Anion Gap 24 (5-15); BUN 57 mg/dL (4-19); BUN/Creat Ratio 25.4 RATIO (10-20); Calcium,Total 9.3 mg/dL (7.6-11.0); Carbon Dioxide 20.3 mmol/L (21.0-32.0); Chloride 94 mmol/L (98-108); Estimated Creatinine Clearance 27.31 ml/min (50-250); Globulin 2.7 g/dL (2.2-4.2); Glucose 157 mg/dL (70-99); Potassium 4.0 mmol/L (3.3-5.1)
[2024-11-20 06:44] LABS: Pro- Brain NATRIURETIC PEPTIDE 51879 pg/mL (<=1800)
[2024-11-20 07:19] LABS: Magnesium 1.9 mg/dL (1.5-2.2)
[2024-11-20 07:27] LABS: FOLATES,SERUM (FOLIC ACID) 22.50 ng/mL (4.60-34.80)
[2024-11-20 07:30] LABS: Alcohol, Blood (Medical)-Serum < 10.1 mg/dL (<=10.0)
[2024-11-20] MEDS: APIXABAN 5 MG TABLET PO (07:39)
[2024-11-20] MEDS: Cholecalciferol (VIT D3) 25 MCG TABLET (1,000 UNITS) PO (07:39)
[2024-11-20] MEDS: Lactated Ringers 1,000 ML 250 ML IV ×3 (07:46→16:48)
[2024-11-20 07:47] LABS: Vitamin B12 2695 pg/mL (180-914)
--- NOTE | 2024-11-20 09:14 | CASEMGMT ---
Discharge Planning [facility] notified that pt is being transferred to tert facility. Bethany Colbert DC Planning Asst.
[2024-11-20 09:31] LABS: Reflex Lactate? Y
[2024-11-20] MEDS: HEPARIN/D5w 25,000 UNITS 25,000 UNITS/250 ML IV.SOLN. 17.2 UNITS CONT INF (09:54)
[2024-11-20 10:38] LABS: Partial Thromboplast Time 54.1 Seconds (24.1-36.2)
[2024-11-20 11:45] LABS: Prothrombin Time (Protime)PT. > 120.0 SECONDS (11.7-14.9)
[2024-11-20] MEDS: Phytonadione (Vit K) 5 MG in 0.9% Normal Saline (50mL Bag) 50 ML 150 MG IV (13:47)
--- NOTE | 2024-11-20 17:59 | PCM.HOSP.N ---
Hospitalist Note Patient was admitted early this morning for altered mentation, acute on chronic heart failure and significant lactic acidosis. She was recently hospitalized here and found on echo to have severe aortic stenosis. She was discharged to a nursing facility on 11/18. Plan was for outpatient follow-up at a tertiary facility for evaluation for aortic valve replacement, but patient presented back here on the late evening of 11/19 with altered mentation and concern for worsening volume overload. Was found to have significant lactic acidosis of 5.0. Given initial concern for volume overload, patient was started on gentle IV diuresis. However, lactate worsened with peak this morning at 7.2. On exam patient did appear somewhat dry, so gentle IV fluids were initiated. She received 500 cc of LR over 2 hours this morning with repeat lactic acid 5.4. Was given another 500 cc of LR and repeat lactate this afternoon was 3.5. Will be given another 500 cc of LR this evening and then we will plan to hold on further IV fluids for now. Blood pressures have remained borderline low but patient has been stable on room air at rest. Plan is for transfer to [facility] once bed is available. Will continue to monitor closely.
[2024-11-20 18:58] LABS: Reflex Lactate? Y
[2024-11-21] VITALS (11 sets, daily range): BP systolic 60–111; BP diastolic 37–94; PULSE 103–128; RESP 24–29; TEMP 36.1–36.9; O2SAT 87–100; BMI 40.4
--- NOTE | 2024-11-21 00:50 | NURSING ---
PT CONFUSED, A&O TO SELF ONLY. LETHARGIC, EXTREMELY WEAK, WHEELCHAIR AT BASELINE, FALLS ASLEEP WHILE TALKING, OPENS EYES TO VERBAL STIMULATION. PT STATED TO STAFF THAT SHE WANTED TO HURT HERSELF YESTERDAY BECAUSE SHE IS NOT GETTING BETTER. WHEN QUESTIONED BY STAFF, PT DENIES PLAN OR ATTEMPT. STATES THAT SHE HAS NO DESIRE TO HURT HERSELF RIGHT NOW. MD AWARE. PT IS ON TELE, CLOSE TO NURSES STATION AND ON CONTINUOUS CAMERA MONITORING. WILL CONTINUE TO MONITOR. SAFETY MAINTAINED. PT DENIES PAIN. VITALS STABLE ON MONITOR. PT REMAINS DNR CCA NO INTUBATION. WILL INCREASE FREQUENT ROUNDING FOR PT SAFETY AND COMFORT.
[2024-11-21 05:07] LABS: HEPATITIS B SURFACE AG Negative (Negative); Hep C Antibodies Non Reactive (Non Reactive)
[2024-11-21 07:43] LABS: Hematocrit 33.4 % (37-47); Hemoglobin 10.2 g/dL (12.0-15.0); Mean Corp Hgb Conc 30.5 g/dL (32-36); Mean Corpuscular Volume 87.4 fL (81-99); Mean Platelet Vol. 10.6 fl (6.2-12.0); Platelet Count 196 K/mm3 (150-450); RBC Distribution Width CV 18.4 % (11.6-14.6); RBC Distribution Width SD 56.4 fl (35.1-43.9); Red Blood Count 3.82 M/mm3 (4.2-5.4); White Blood Count 11.8 K/mm3 (4.4-11.0)
[2024-11-21 08:13] LABS: AST(SGOT) 153 U/L (<=31); Alanine Aminotransfer ALT/SGPT 364 U/L (<=34); Albumin, Serum 3.4 g/dL (3.4-4.8); Alkaline Phosphatase 185 U/L (35-104); Anion Gap 26 (5-15); BUN 65 mg/dL (4-19); BUN/Creat Ratio 22.1 RATIO (10-20); Calcium,Total 9.4 mg/dL (7.6-11.0); Carbon Dioxide 15.6 mmol/L (21.0-32.0); Chloride 95 mmol/L (98-108); Estimated Creatinine Clearance 20.90 ml/min (50-250); Globulin 2.6 g/dL (2.2-4.2); Glucose 102 mg/dL (70-99); Potassium 4.7 mmol/L (3.3-5.1)
[2024-11-21] MEDS: Lactated Ringers 1,000 ML 250 ML IV (08:37)
[2024-11-21] MEDS: 0.9% Saline Lock 10 ML Syringe IV ×2 (08:38→10:57)
--- NOTE | 2024-11-21 08:50 | PCA ---
THIS US CALLED [facility] AT [phone], THERE ARE CURRENTLY NO BEDS BUT POTENTIALLY LATER TODAY. WILL CALL BACK AT 5-6PM UNLESS BED BEFORE THEN.
[2024-11-21] MEDS: Cholecalciferol (VIT D3) 25 MCG TABLET (1,000 UNITS) PO (09:44)
[2024-11-21 10:05] LABS: Prothrombin Time (Protime)PT. 88.1 SECONDS (11.7-14.9)
--- NOTE | 2024-11-21 10:47 | PCM.CONS.C ---
Assessment & Plan Assessment/Plan (1) Severe aortic stenosis: PLAN: Most recent assessment mean heavily calcified aortic valvular gradient 40 mmHg with LVEF 40% which is likely contributing to her acute heart failure decompensation partially but not completely specially with her multiple comorbidities. TAVR evaluation is being arranged at [facility] however may need further hemodynamic support with right heart catheterization/intravenous diuresis and potentially bridging with balloon valvuloplasty prior to consideration of TAVR. All of the above may carry increased risks of CVA for which careful discussion with the family about overall condition/prognosis/risks of procedure, goals of care should be clearly identified and discussed (2) CHF exacerbation: QUALIFIERS: Heart failure type: combined systolic and diastolic Qualified Code(s): I50.43 - Acute on chronic combined systolic (congestive) and diastolic (congestive) heart failure PLAN: Acute on chronic with reduced systolic function, likely due to combination of CAD/valvular heart disease but with her acute kidney injury, contrast-induced nephropathy would have to be discussed with the family and again more hemodynamic support prior to any intervention would have to be considered. Will consider intravenous diuresis at this time, potentially Lasix drip in addition to IV inotropic support in the form of IV dobutamine in an ICU setting to improve her hemodynamics temporarily while carefully monitoring urine output and if anuria continue to persist may need hemofiltration or dialysis. The case will have to be discussed with the family (3) Elevated troponin: PLAN: Nonspecific in the above setting and likely secondary to supply/demand mismatch (4) SANDRA (acute kidney injury): PLAN: Very likely due to cardiogenic shock features and generalized hypoperfusion for which intravenous diuresis with Lasix drip and inotropic therapy with dobutamine or Levophed may be needed temporarily to allow for potential renal recovery or consideration of alternative treatments (5) CKD stage 3b, GFR 30-44 ml/min: (6) Lactic acidosis: PLAN: Likely secondary to cardiogenic shock features for which based on goals of care and discussion with the family will dictate the need for any further support via inotropes or mechanical circulatory support, the later would be only in the setting if we are planning to proceed with TAVR or balloon aortic valvuloplasty (7) Acute metabolic encephalopathy: PLAN: Likely due to generalized hypoperfusion state and cardiogenic shock (8) Morbid obesity with BMI of 40.0-44.9, adult: (9) Cardiorenal syndrome: QUALIFIERS: Heart failure presence: with heart failure Hypertensive chronic kidney disease stage: stage 1-4 or unspecified chronic kidney disease Qualified Code(s): I13.0 - Hypertensive heart and chronic kidney disease with heart failure and stage 1 through stage 4 chronic kidney disease, or unspecified chronic kidney disease PLAN: Will need to discuss with renal options of treatment considering the significant quick deterioration over the last 24 hours (10) Morbid obesity with BMI of 40.0-44.9, adult: (11) A-fib: PLAN: Hold on Eliquis and consider intravenous heparin (12) COPD (chronic obstructive pulmonary disease): (13) Diabetes: HPI Consult Data Date of Consult: 11/21/24 HPI Narrative Reason for Consultation: Acute CHF decompensation and acute kidney injury with underlying As HPI Narrative: DARYN SHAH, is a 78 F who is a relatively poor historian but by reviewing the records her mental status appears to be better today than her presentation yesterday. 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 The patient was recently hospitalized from November 08 till November 17 for an acute decompensated heart failure associated with acute kidney injury and underwent diuresis then final evaluation prior to discharge was indicating relatively stable status awaiting TAVR evaluation. She was readmitted back from nursing facility with mental status changes associated with lactic acidosis, generalized hypoperfusion status with elevated liver function tests and metabolic acidosis. Significant elevation of NT proBNP, over 50,000, worsening renal function with acute kidney injury from baseline creatinine 1.4 to currently 2.9 Initial severe lactic acidosis was noted with level over 7 that responded well to IV hydration in addition to elevated liver function test AST 323 ALT 527 along with evidence on chest x-ray of bilateral pleural effusions and pulmonary vascular congestions. CT abdomen without major abnormalities. The plan was originally to transfer the patient to a tertiary care center for TAVR evaluation however due to bed availability, heart transfer has been held and again she presented back again with the above mental status changes associated with elevated liver function tests and worsening cardiovascular condition essentially consistent with cardiogenic shock/lactic acidosis and generalized distal organ hypoperfusion There is mild elevated high-sensitivity troponin nonspecific in the above setting unlikely supply/demand mismatch however recent stress test demonstrated evidence of inferoapical scar but no ischemia [facility] Medical History Post-menopausal History of ulceration Gastric reflux History of stress test History of irregular heartbeat Aortic stenosis Lives in usp Wears glasses Wears partial dentures Marijuana use Discoloration of skin Open wound Insulin dependent diabetes mellitus Uses wheelchair Arthritis History of renal disease Low iron High cholesterol Back pain Dietary restriction History of GI bleed Non-smoker Chronic cough History of edema History of echocardiogram Cardiology follow-up encounter History of CHF (congestive heart failure) History of atrial fibrillation Palpitations Magnesium deficiency Diarrhea Asthma Vertebral osteomyelitis Discitis of thoracic region Intractable back pain Syndrome of inappropriate secretion of antidiuretic hormone Age-related incipient cataract of both eyes Iron deficiency anemia Generalized muscle weakness Morbid obesity with BMI of 40.0-44.9, adult Vitamin D deficiency Venous stasis ulcer with varicose veins Renal lesion Primary osteoarthritis of both knees History of colonic polyps Neurodermatitis Lymphedema of leg Lumbar facet arthropathy Benign essential hypertension Anemia Anxiety Depression CHF (congestive heart failure) A-fib COPD (chronic obstructive pulmonary disease) Kidney disease Diabetes Hyperlipidemia History of ESBL E. coli infection History of infection with vancomycin resistant Enterococcus (VRE) Altered mental status Home Medications ?Medication ?Instructions ?Recorded ?Last Taken ?Type cholecalciferol (vitamin D3) 25 25 mcg PO DAILY 12/31/23 Unknown History mcg (1,000 unit) capsule insulin lispro 100 unit/mL See Protocol subcut .TIDCM&HS 12/31/23 Unknown History subcutaneous pen (Humalog KwikPen (U-100) Insulin) nystatin 100,000 unit/gram topical 1 applic topical BID PRN skin 12/31/23 Unknown History powder irritation melatonin 3 mg tablet 6 mg (2 x 3 mg) PO QHS #0 tabs 01/08/24 Unknown Rx buspirone 5 mg tablet 5 mg PO BID 03/28/24 Unknown History dapagliflozin propanediol 5 mg 5 mg PO DAILY 03/28/24 Unknown History tablet (Farxiga) ferrous sulfate 325 mg (65 mg 325 mg PO QDAY 04/28/24 Unknown History iron) tablet furosemide 20 mg tablet 40 mg PO QAM 04/28/24 Unknown History Held on 11/18/24. Instructions: Resume on 11/20/24. pantoprazole 40 mg tablet,delayed 40 mg PO QDAY #90 tabs 04/28/24 Unknown Rx release cyclobenzaprine 10 mg tablet 5 mg PO TID 06/10/24 Unknown History acetaminophen 325 mg tablet 650 mg PO Q4H PRN Pain 1-08/16 Or 06/30/24 Unknown History Fever>100.7 albuterol sulfate 90 mcg/actuation 2 inh inhalation Q6H PRN shortness 06/30/24 Unknown History aerosol inhaler of breath or wheezing guaifenesin 400 mg tablet 400 mg PO Q4H PRN cough 06/30/24 Unknown History insulin glargine 100 unit/mL (3 8 unit subcut DAILY 06/30/24 07/01/24 History mL) subcutaneous pen (Lantus Solostar U-100 Insulin) polyethylene glycol 3350 17 17 g PO QODAY 06/30/24 Unknown History gram/dose oral powder (Miralax) apixaban 5 mg tablet (Eliquis) 5 mg PO BID #90 tabs 07/23/24 10/23/24 Rx carvedilol 3.125 mg tablet 3.125 mg PO BID #180 tabs 07/31/24 Unknown Rx docusate sodium 100 mg capsule 100 mg PO BID 10/09/24 Unknown History venlafaxine 150 mg 150 mg PO QDAY 10/09/24 Unknown History capsule,extended release 24 hr benzonatate 100 mg capsule 100 mg PO TID PRN cough 10/21/24 Unknown History magnesium hydroxide 400 mg/5 mL 30 ml PO DAILY PRN constipation 10/21/24 Unknown History oral suspension (Milk of Magnesia) Allergy/AdvReac Type Severity Reaction Status Date / Time No Known Allergies Allergy Verified 11/19/24 08:37 Family History Mother Alzheimer dementia Breast cancer Heart disease Brother Cystic fibrosis Surgical History History of colonoscopy S/P laminectomy History of tubal ligation Hx of cholecystectomy H/O section Social History Smoking Status: Never smoker alcohol intake: never ROS ROS Narrative As per HPI Physical Exam Const Constitutional Narrative: The patient is alert awake but not oriented, in moderate respiratory distress, very fatigued and cachectic HEENT normocephalic Eyes PERRL and EOMs intact bilaterally Neck full ROM Carotids: delayed carotid upstroke Lymph Lymphatic: no lymphadenopathy noted and lymphedema Chest inspection of chest normal Resp Resp Narrative: Decreased air entry bilaterally with diffuse crackles in both lung bases Cardio Cardio Narrative: S1 with single S2 component and irregularly irregular rhythm and a systolic ejection murmur 3 out of 6 right upper sternal border with laterally displaced PMI 3 cm GI GI Narrative: Distended but not tender no CVA tenderness Extremity Extremity Narrative: Cool clammy with severely diminished pulses and purplish discoloration of the digits bilaterally indicated poor circulation and peripheral vasoconstriction Neuro Neuro Narrative: Alert awake but not oriented Risk Stratification Risk Stratification Applicable: No Objective Data Vital Signs: Vital Signs Temp Pulse Resp BP Pulse Ox O2 Del Method O2 Flow Rate 98 F 116 H 26 H 72/56 L 100 Nasal Cannula 4 11/21/24 08:39 11/21/24 08:39 11/21/24 08:39 11/21/24 08:39 11/21/24 08:39 11/21/24 08:39 11/21/24 08:39 Oxygen Flow Rate (L/min) 4 Oxygen Delivery Method Nasal Cannula Weight: 250 lb 10.649 oz Body Mass Index (BMI) 40.4 Intake & Output: Intake and Output for Last 24 Hours 11/19/24 11/20/24 11/21/24 23:59 23:59 23:59 Intake Total 1356.2 / 1356.2 2658.41 / 2658.41 Output Total 0 / 0 0 / 0 Balance 1356.2 / 1356.2 2658.41 / 2658.41 0 / 0 Lab / Micro Data 11/21/24 07:25 11/21/24 07:25 Labs: Laboratory Results - last 24 hr 11/20/24 05:20: Hepatitis A IgM Ab Negative, Hep Bs Antigen Negative, Hep B Core IgM Ab Negative, Hepatitis C Ab (EIA) Non Reactive, Hep C Ab Comment Comment 11/20/24 09:42: PT > 120.0 H, INR > 19.5 H*, APTT 54.1 H, Lactic Acid 5.4 H* 11/20/24 12:27: POC Glucose 128 H 11/20/24 14:35: Lactic Acid 3.5 H* 11/20/24 17:57: POC Glucose 147 H 11/20/24 21:11: Lactic Acid 4.4 H* 11/21/24 01:08: POC Glucose 127 H 11/21/24 06:13: POC Glucose 86 11/21/24 07:25: WBC 11.8 H, RBC 3.82 L, Hgb 10.2 L, Hct 33.4 L, MCV 87.4, MCH 26.7 L, MCHC 30.5 L, RDW Std Deviation 56.4 H, RDW Coeff of Josiah 18.4 H, Plt Count 196, MPV 10.6, Sodium 136, Potassium 4.7, Chloride 95 L, Carbon Dioxide 15.6 L, Anion Gap 26 H, BUN 65 H, Creatinine 2.93 H, Estim Creat Clear Calc 20.90 L, Est GFR (MDRD) Non-Af 16 L, BUN/Creatinine Ratio 22.1 H, Glucose 102 H, Calcium 9.4, Total Bilirubin 1.95 H, AST 153 H, ALT 364 H, Alkaline Phosphatase 185 H, Total Protein 6.1, Albumin 3.4, Globulin 2.6, Albumin/Globulin Ratio 1.3 11/21/24 09:39: PT 88.1 H, INR 10.9 H*, Lactic Acid 9.4 H* Micro: Microbiology 11/19/24 10:35 Urine, Catheterized Urine Culture - Preliminary ESBL Escherichia coli GPC Poss Enterococcus sp Rhythm Strip Rhythm Strip: A-fib Rate: 100 Cardiology Labs/Tests 11/20/24 09:42: PT > 120.0 H, INR > 19.5 H*, APTT 54.1 H, Lactic Acid 5.4 H* 11/20/24 14:35: Lactic Acid 3.5 H* 11/20/24 21:11: Lactic Acid 4.4 H* 11/21/24 07:25: WBC 11.8 H, RBC 3.82 L, Hgb 10.2 L, Hct 33.4 L, MCV 87.4, MCH 26.7 L, MCHC 30.5 L, Plt Count 196, MPV 10.6, Sodium 136, Potassium 4.7, Chloride 95 L, Carbon Dioxide 15.6 L, Anion Gap 26 H, BUN 65 H, Creatinine 2.93 H, Est GFR (MDRD) Non-Af 16 L, BUN/Creatinine Ratio 22.1 H, Glucose 102 H, Calcium 9.4, Total Bilirubin 1.95 H 11/21/24 09:39: PT 88.1 H, INR 10.9 H*, Lactic Acid 9.4 H* Rhythm: EKG: Atrial fibrillation with rapid ventricular response and poor R wave progression across the precordial leads ECHO: LVEF 40%, severe aortic stenosis with mean gradient 40 mmHg with heavily calcified valve leaflets and moderate mitral tricuspid digitation with right-sided pressures 6065 mmHg Stress Test: Cardiac Cath: PCI: CT Surgery: Holter monitor: EPS: PPM: CXR: Chest CT Scan: Radiography Diagnostic Testing: Brain CT 11/19/24 10:13 IMPRESSION: CHRONIC CHANGES. NO ACUTE FINDINGS. Reading Location: [id number] Abdomen/Pelvis CT 11/19/24 11:08 IMPRESSION: Bilateral pleural effusions with bibasilar dependent atelectasis and/or infiltrates. Diffuse subcutaneous edema of the abdominal w
[2024-11-21] MEDS: Piperacil/Tazobactam 3.375 GM in 0.9% Normal Saline (50mL MB+) 50 ML IV (10:57)
--- NOTE | 2024-11-21 11:11 | PCM.CONS.C ---
Assessment & Plan Assessment/Plan (1) Cardiogenic shock: PLAN: Likely secondary to poor LV systolic function and severe aortic stenosis, currently in stage C specially with a lactic acidosis and generalized hypoperfusion for which an urgent discussion with the family/goals of care should be done to consider any further uptitration of treatment including inotropic therapy and potentially balloon aortic valvuloplasty as a bridge to TAVR supported by mechanical circulatory support, i.e. balloon pump. Considering her comorbidities, age, further discussions are needed prior to proceeding with the above but may transfer to ICU for intravenous diuresis/inotropic therapy HPI Consult Data Date of Consult: 11/21/24 HPI Narrative HPI Narrative: DARYN SHAH, is a 78 F who presents [facility] Medical History Post-menopausal History of ulceration Gastric reflux History of stress test History of irregular heartbeat Aortic stenosis Lives in senior living Wears glasses Wears partial dentures Marijuana use Discoloration of skin Open wound Insulin dependent diabetes mellitus Uses wheelchair Arthritis History of renal disease Low iron High cholesterol Back pain Dietary restriction History of GI bleed Non-smoker Chronic cough History of edema History of echocardiogram Cardiology follow-up encounter History of CHF (congestive heart failure) History of atrial fibrillation Palpitations Magnesium deficiency Diarrhea Asthma Vertebral osteomyelitis Discitis of thoracic region Intractable back pain Syndrome of inappropriate secretion of antidiuretic hormone Age-related incipient cataract of both eyes Iron deficiency anemia Generalized muscle weakness Morbid obesity with BMI of 40.0-44.9, adult Vitamin D deficiency Venous stasis ulcer with varicose veins Renal lesion Primary osteoarthritis of both knees History of colonic polyps Neurodermatitis Lymphedema of leg Lumbar facet arthropathy Benign essential hypertension Anemia Anxiety Depression CHF (congestive heart failure) A-fib COPD (chronic obstructive pulmonary disease) Kidney disease Diabetes Hyperlipidemia History of ESBL E. coli infection History of infection with vancomycin resistant Enterococcus (VRE) Altered mental status Home Medications ?Medication ?Instructions ?Recorded ?Last Taken ?Type cholecalciferol (vitamin D3) 25 25 mcg PO DAILY 12/31/23 Unknown History mcg (1,000 unit) capsule insulin lispro 100 unit/mL See Protocol subcut .TIDCM&HS 12/31/23 Unknown History subcutaneous pen (Humalog KwikPen (U-100) Insulin) nystatin 100,000 unit/gram topical 1 applic topical BID PRN skin 12/31/23 Unknown History powder irritation melatonin 3 mg tablet 6 mg (2 x 3 mg) PO QHS #0 tabs 01/08/24 Unknown Rx buspirone 5 mg tablet 5 mg PO BID 03/28/24 Unknown History dapagliflozin propanediol 5 mg 5 mg PO DAILY 03/28/24 Unknown History tablet (Farxiga) ferrous sulfate 325 mg (65 mg 325 mg PO QDAY 04/28/24 Unknown History iron) tablet furosemide 20 mg tablet 40 mg PO QAM 04/28/24 Unknown History Held on 11/18/24. Instructions: Resume on 11/20/24. pantoprazole 40 mg tablet,delayed 40 mg PO QDAY #90 tabs 04/28/24 Unknown Rx release cyclobenzaprine 10 mg tablet 5 mg PO TID 06/10/24 Unknown History acetaminophen 325 mg tablet 650 mg PO Q4H PRN Pain 1-08/16 Or 06/30/24 Unknown History Fever>100.7 albuterol sulfate 90 mcg/actuation 2 inh inhalation Q6H PRN shortness 06/30/24 Unknown History aerosol inhaler of breath or wheezing guaifenesin 400 mg tablet 400 mg PO Q4H PRN cough 06/30/24 Unknown History insulin glargine 100 unit/mL (3 8 unit subcut DAILY 06/30/24 07/01/24 History mL) subcutaneous pen (Lantus Solostar U-100 Insulin) polyethylene glycol 3350 17 17 g PO QODAY 06/30/24 Unknown History gram/dose oral powder (Miralax) apixaban 5 mg tablet (Eliquis) 5 mg PO BID #90 tabs 07/23/24 10/23/24 Rx carvedilol 3.125 mg tablet 3.125 mg PO BID #180 tabs 07/31/24 Unknown Rx docusate sodium 100 mg capsule 100 mg PO BID 10/09/24 Unknown History venlafaxine 150 mg 150 mg PO QDAY 10/09/24 Unknown History capsule,extended release 24 hr benzonatate 100 mg capsule 100 mg PO TID PRN cough 10/21/24 Unknown History magnesium hydroxide 400 mg/5 mL 30 ml PO DAILY PRN constipation 10/21/24 Unknown History oral suspension (Milk of Magnesia) Allergy/AdvReac Type Severity Reaction Status Date / Time No Known Allergies Allergy Verified 11/19/24 08:37 Family History Mother Alzheimer dementia Breast cancer Heart disease Brother Cystic fibrosis Surgical History History of colonoscopy S/P laminectomy History of tubal ligation Hx of cholecystectomy H/O section Social History Smoking Status: Never smoker alcohol intake: never Objective Data Vital Signs: Vital Signs Temp Pulse Resp BP Pulse Ox O2 Del Method O2 Flow Rate 98 F 116 H 26 H 72/56 L 100 Nasal Cannula 4 11/21/24 08:39 11/21/24 08:39 11/21/24 08:39 11/21/24 08:39 11/21/24 08:39 11/21/24 08:39 11/21/24 08:39 Oxygen Flow Rate (L/min) 4 Oxygen Delivery Method Nasal Cannula Weight: 250 lb 10.649 oz Body Mass Index (BMI) 40.4 Intake & Output: Intake and Output for Last 24 Hours 11/19/24 11/20/24 11/21/24 23:59 23:59 23:59 Intake Total 1356.2 / 1356.2 2658.41 / 2658.41 Output Total 0 / 0 0 / 0 Balance 1356.2 / 1356.2 2658.41 / 2658.41 0 / 0 Lab / Micro Data 11/21/24 07:25 11/21/24 07:25 Labs: Laboratory Results - last 24 hr 11/20/24 05:20: Hepatitis A IgM Ab Negative, Hep Bs Antigen Negative, Hep B Core IgM Ab Negative, Hepatitis C Ab (EIA) Non Reactive, Hep C Ab Comment Comment 11/20/24 09:42: PT > 120.0 H, INR > 19.5 H*, APTT 54.1 H 11/20/24 12:27: POC Glucose 128 H 11/20/24 14:35: Lactic Acid 3.5 H* 11/20/24 17:57: POC Glucose 147 H 11/20/24 21:11: Lactic Acid 4.4 H* 11/21/24 01:08: POC Glucose 127 H 11/21/24 06:13: POC Glucose 86 11/21/24 07:25: WBC 11.8 H, RBC 3.82 L, Hgb 10.2 L, Hct 33.4 L, MCV 87.4, MCH 26.7 L, MCHC 30.5 L, RDW Std Deviation 56.4 H, RDW Coeff of Josiah 18.4 H, Plt Count 196, MPV 10.6, Sodium 136, Potassium 4.7, Chloride 95 L, Carbon Dioxide 15.6 L, Anion Gap 26 H, BUN 65 H, Creatinine 2.93 H, Estim Creat Clear Calc 20.90 L, Est GFR (MDRD) Non-Af 16 L, BUN/Creatinine Ratio 22.1 H, Glucose 102 H, Calcium 9.4, Total Bilirubin 1.95 H, AST 153 H, ALT 364 H, Alkaline Phosphatase 185 H, Total Protein 6.1, Albumin 3.4, Globulin 2.6, Albumin/Globulin Ratio 1.3 11/21/24 09:39: PT 88.1 H, INR 10.9 H*, Lactic Acid 9.4 H* Micro: Microbiology 11/19/24 10:35 Urine, Catheterized Urine Culture - Preliminary ESBL Escherichia coli GPC Poss Enterococcus sp Rhythm Strip Rhythm Strip: A-fib Rate: 100 Cardiology Labs/Tests 11/20/24 09:42: PT > 120.0 H, INR > 19.5 H*, APTT 54.1 H 11/20/24 14:35: Lactic Acid 3.5 H* 11/20/24 21:11: Lactic Acid 4.4 H* 11/21/24 07:25: WBC 11.8 H, RBC 3.82 L, Hgb 10.2 L, Hct 33.4 L, MCV 87.4, MCH 26.7 L, MCHC 30.5 L, Plt Count 196, MPV 10.6, Sodium 136, Potassium 4.7, Chloride 95 L, Carbon Dioxide 15.6 L, Anion Gap 26 H, BUN 65 H, Creatinine 2.93 H, Est GFR (MDRD) Non-Af 16 L, BUN/Creatinine Ratio 22.1 H, Glucose 102 H, Calcium 9.4, Total Bilirubin 1.95 H 11/21/24 09:39: PT 88.1 H, INR 10.9 H*, Lactic Acid 9.4 H* Rhythm: EKG: ECHO: Stress Test: Cardiac Cath: PCI: CT Surgery: Holter monitor: EPS: PPM: CXR: Chest CT Scan:
--- NOTE | 2024-11-21 11:26 | CASEMGMT ---
Tertiary Insurance review for hospitals In-network with?[facility]?insurance if transfer is recommended is as follows: [facility], [facility], [place], [facility], [facility], [facility], , [place], [facility], and [place]. Bethany Colbert, Discharge Planning Asst.
--- NOTE | 2024-11-21 12:28 | PCM.PN.HOSP ---
Reason for Visit Chief Complaint: AMS. Objective Data Objective Data Vital Signs: Vital Signs Temp Pulse Resp BP Pulse Ox O2 Del Method O2 Flow Rate 98 F 123 H 29 H 111/79 92 Nasal Cannula 2 11/21/24 11:20 11/21/24 11:20 11/21/24 11:20 11/21/24 11:20 11/21/24 11:20 11/21/24 11:20 11/21/24 11:20 Oxygen Flow Rate (L/min) 2 Oxygen Delivery Method Nasal Cannula Weight: 113.7 kg Body Mass Index (BMI) 40.4 Intake & Output: Intake and Output for Last 24 Hours 11/19/24 11/20/24 11/21/24 23:59 23:59 23:59 Intake Total 1356.2 / 1356.2 2658.41 / 2658.41 Output Total 0 / 0 0 / 0 Balance 1356.2 / 1356.2 2658.41 / 2658.41 0 / 0 Lab / Micro Data 11/21/24 07:25 11/21/24 07:25 Labs: Laboratory Results - last 24 hr 11/20/24 05:20: Hepatitis A IgM Ab Negative, Hep Bs Antigen Negative, Hep B Core IgM Ab Negative, Hepatitis C Ab (EIA) Non Reactive, Hep C Ab Comment Comment 11/20/24 12:27: POC Glucose 128 H 11/20/24 14:35: Lactic Acid 3.5 H* 11/20/24 17:57: POC Glucose 147 H 11/20/24 21:11: Lactic Acid 4.4 H* 11/21/24 01:08: POC Glucose 127 H 11/21/24 06:13: POC Glucose 86 11/21/24 07:25: WBC 11.8 H, RBC 3.82 L, Hgb 10.2 L, Hct 33.4 L, MCV 87.4, MCH 26.7 L, MCHC 30.5 L, RDW Std Deviation 56.4 H, RDW Coeff of Josiah 18.4 H, Plt Count 196, MPV 10.6, Sodium 136, Potassium 4.7, Chloride 95 L, Carbon Dioxide 15.6 L, Anion Gap 26 H, BUN 65 H, Creatinine 2.93 H, Estim Creat Clear Calc 20.90 L, Est GFR (MDRD) Non-Af 16 L, BUN/Creatinine Ratio 22.1 H, Glucose 102 H, Calcium 9.4, Total Bilirubin 1.95 H, AST 153 H, ALT 364 H, Alkaline Phosphatase 185 H, Total Protein 6.1, Albumin 3.4, Globulin 2.6, Albumin/Globulin Ratio 1.3 11/21/24 09:39: PT 88.1 H, INR 10.9 H*, Lactic Acid 9.4 H* 11/21/24 11:25: POC Glucose 59 L Micro: Microbiology 11/19/24 10:35 Urine, Catheterized Urine Culture - Preliminary ESBL Escherichia coli GPC Poss Enterococcus sp Rhythm Strip Rhythm Strip: A-fib Rate: 100
[2024-11-21 13:47] LABS: Reflex Lactate? Y
[2024-11-21] MEDS: DOBUTamine IV 500 MG in Dextrose 5%-Water (250mL Bag) 210 ML 8.5 MG IV (13:55)
--- NOTE | 2024-11-21 13:59 | DCINST_ITS ---
Discharge Instructions DC O2, CPAP, BIPAP needs Home O2 Discharge instructions: No Follow Up Care Test Results: Test results from this visit will be discussed in further detail at your follow- up appointment, if applicable. Discharge Plan Admission Admit Date/Time: 11/20/24 03:58 Primary Reason for Your Visit: shortness of breath Attending Provider: Salvador Meza Primary Care Provider: Delgado Amaro Consulting Providers: Waqar Berman; Soham Enrique; Funmi Mcgrath Discharge Orders/Prescriptions Prescriptions: Continued pantoprazole 40 mg tablet,delayed release (DR/EC) 40 mg PO QDAY Qty: 90 1RF ferrous sulfate 325 mg (65 mg iron) tablet 325 mg PO QDAY Patient Comments: ON HOLD FOR CSCOPE furosemide 20 mg tablet 40 mg PO QAM cyclobenzaprine 10 mg tablet 5 mg PO TID Eliquis 5 mg tablet 5 mg PO BID Qty: 90 3RF carvedilol 3.125 mg tablet 3.125 mg PO BID Qty: 180 3RF venlafaxine 150 mg capsule,extended release 24hr 150 mg PO QDAY docusate sodium 100 mg capsule 100 mg PO BID buspirone 5 mg tablet 5 mg PO BID dapagliflozin propanediol [Farxiga] 5 mg tablet 5 mg PO DAILY Patient Comments: ON HOLD FOR CSCOPE albuterol sulfate 90 mcg/actuation HFA aerosol inhaler 2 inh inhalation Q6H PRN (Reason: shortness of breath or wheezing) guaifenesin 400 mg tablet 400 mg PO Q4H PRN (Reason: cough) insulin glargine [Lantus Solostar U-100 Insulin] 100 unit/mL (3 mL) insulin pen 8 unit subcut DAILY Patient Comments: Patient had 4 units (half her usual dose) this morning. polyethylene glycol 3350 [Miralax] 17 gram/dose powder 17 g PO QODAY acetaminophen 325 mg Tablet 650 mg PO Q4H PRN (Reason: Pain 1-5/10 Or Fever>100.7) magnesium hydroxide [Milk of Magnesia] 400 mg/5 mL suspension 30 ml PO DAILY PRN (Reason: constipation) benzonatate 100 mg capsule 100 mg PO TID PRN (Reason: cough) cholecalciferol (vitamin D3) 25 mcg (1,000 unit) capsule 25 mcg PO DAILY insulin lispro [Humalog KwikPen Insulin] 100 unit/mL insulin pen See Protocol subcut .TIDCM&HS Protocol: 6. Sliding Scale Insulin Custom Condition: 71-150mg/dl range Dose/Route: 0 Condition: 151-200 Dose/Route: 2 Condition: 201-250 Dose/Route: 4 Condition: 251-300 Dose/Route: 6 Condition: 301-350 Dose/Route: 8 Condition: 351-400 Dose/Route: 10 Protocol Text: Custom Sliding Scale Rx Instructions: TID with meals and at HS nystatin 100,000 unit/gram powder 1 applic topical BID PRN (Reason: skin irritation) melatonin 3 mg Tablet 6 mg PO QHS Qty: 0 0RF Referrals / Follow Up: Delgado Amaro DO [Primary Care Provider] - Disposition Disposition (needs filled in before D/C Order can be placed): Acute [facility]
--- NOTE | 2024-11-21 14:02 | PCM.DC.SUM ---
Providers Date of Admission: 11/20/24 Date of Discharge: 11/21/24 Primary Care Physician: Dr. Delgado Amaro, DO Consultations 11/21/24 08:19 Consult: Cardiology Routine Consulting Provider: Soham Enrique Reason for Consult: critical w/ CHF and worsening SANDRA EMERGENT Consult: No Notified: Yes Date Notified: 11/21/24 Time Notified: 08:34 Method of Notification: Text Consult: Nephrology Routine Consulting Provider: Funmi Mcgrath Reason for Consult: critical w/ CHF and worsening SANDRA EMERGENT Consult: No Notified: Yes Date Notified: 11/21/24 Time Notified: 08:20 Method of Notification: Answering Service Reason For Visit: AE CHF WITH SEVERE REFRACTORY TO TX, SANDRA, Diagnosis Discharge Diagnosis (1) Cardiogenic shock: Status: Acute Code(s): R57.0 - Cardiogenic shock Medications at Discharge Home Medications cholecalciferol (vitamin D3) 25 mcg (1,000 unit) capsule 25 mcg PO DAILY 12/31/23 insulin lispro 100 unit/mL subcutaneous pen (Humalog KwikPen (U-100) Insulin) See Protocol subcut .TIDCM&HS 12/31/23 nystatin 100,000 unit/gram topical powder 1 applic topical BID PRN skin irritation 12/31/23 melatonin 3 mg tablet 6 mg (2 x 3 mg) PO QHS #0 tabs 01/08/24 buspirone 5 mg tablet 5 mg PO BID 03/28/24 dapagliflozin propanediol 5 mg tablet (Farxiga) 5 mg PO DAILY 03/28/24 ferrous sulfate 325 mg (65 mg iron) tablet 325 mg PO QDAY 04/28/24 furosemide 20 mg tablet 40 mg PO QAM 04/28/24 pantoprazole 40 mg tablet,delayed release 40 mg PO QDAY #90 tabs 04/28/24 cyclobenzaprine 10 mg tablet 5 mg PO TID 06/10/24 acetaminophen 325 mg tablet 650 mg PO Q4H PRN Pain 1-5/10 Or Fever>100.7 06/30/24 albuterol sulfate 90 mcg/actuation aerosol inhaler 2 inh inhalation Q6H PRN shortness of breath or wheezing 06/30/24 guaifenesin 400 mg tablet 400 mg PO Q4H PRN cough 06/30/24 insulin glargine 100 unit/mL (3 mL) subcutaneous pen (Lantus Solostar U-100 Insulin) 8 unit subcut DAILY 06/30/24 polyethylene glycol 3350 17 gram/dose oral powder (Miralax) 17 g PO QODAY 06/30/24 apixaban 5 mg tablet (Eliquis) 5 mg PO BID #90 tabs 07/23/24 carvedilol 3.125 mg tablet 3.125 mg PO BID #180 tabs 07/31/24 docusate sodium 100 mg capsule 100 mg PO BID 10/09/24 venlafaxine 150 mg capsule,extended release 24 hr 150 mg PO QDAY 10/09/24 benzonatate 100 mg capsule 100 mg PO TID PRN cough 10/21/24 magnesium hydroxide 400 mg/5 mL oral suspension (Milk of Magnesia) 30 ml PO DAILY PRN constipation 10/21/24 Hospital Course Operations None Procedures EKG and - (Chest x-ray x 2, CT brain, CT abdomen pelvis) Summary of Care Provided Minutes Spent on Discharge: 55 Hospital Course: Patient is a 78-year-old female who presented [facility] ED on 11/20/2024 with worsening shortness of breath. Hospital course here as noted below. Patient transferred to [facility] for further management on 11/21. 1. Cardiogenic shock secondary to critical aortic stenosis ? Cardiology followed. Most recent echo in August showed EF 40% with mean gradient 40 mmHg indicating severe critical aortic stenosis. Patient hospitalized here at the beginning of November for SANDRA secondary to overdiuresis in setting of recent prior heart failure exacerbation. Presented here with worsening volume overload and lactic acidosis with BNP 52226. However, low blood pressures noted and with diuresis her lactate worsened. Decision was made to give small fluid boluses and patient received three 500 cc fluid boluses over the course of the day on 11/20 with improvement in lactic acid to 2. However, lactic acid significantly worsened on 11/21 with most recent lactic acid 9.4 on discharge. Per cardiology, consistent with cardiogenic shock. Transferred up to the ICU on 11/21 and initiated on IV dobutamine drip and IV Lasix drip. Transferred to [facility] on the afternoon of 11/21 for further management. 2. SANDRA on CKD stage IIIb ? Nephrology followed briefly. Creatinine 1.4 on recent discharge on 11/18. On admission on the morning of 11/20, creatinine worsened to 2.25. Further worsened to 2.93 on 11/21. BUN 65. Has had minimal urine output. Discussed with patient's son Clinton over the phone who is her next of kin, and he is not sure if the patient would want dialysis if needed. Given patient's altered mental status, she is not able to make this decision currently. Treating with dobutamine Lasix drips as above. Further management per tertiary center. 3. Acute metabolic encephalopathy ? Presumed secondary to cardiogenic shock with lactic acidosis and worsening SANDRA as above. Treatment as above. Avoiding sedating medications as able. 4. Elevated LFTs ? Suspect secondary to ischemic liver injury secondary to cardiogenic shock as above. LFTs on 11/21 of total bilirubin 1.95, AST 153, LT 364, alk phos 185. 5. Elevated troponins ? Troponin trend 172 > 182 > 183. No ischemic EKG changes noted. Presume secondary to cardiogenic shock as above. Further management as above. 6. Elevated INR ? On home Eliquis for A-fib as below. Eliquis held and patient initiated on heparin drip on admission due to worsening any function and possible need for aortic valve procedure in the near future. Found to have INR greater than 19.5 on 11/20. Given 1 dose of IV vitamin K 5 mg. Most recent INR 10.9 on 11/21. Heparin drip remains on hold. 7. Mild to moderate oropharyngeal dysphagia and esophageal dysphagia due to esophageal dysmotility ? Speech therapy followed. Patient found to have dysphagia during hospitalization in early November. Had EGD done on 11/17 that showed abnormal esophageal motility with esophageal dilation and esophagitis/gastritis. She was discharged to SNF on 11/18 on soft with bite-size texture and thin liquid diet. Speech therapy followed again during this admission and given her altered mentation as above, patient remained n.p.o. status during hospitalization here. Chronic medical conditions: ? Class III obesity: BMI 40 on admit. Complicates hospital course and care. ? Chronic A-fib, hypertension: In sinus tachycardia during admission. Blood pressure low due to cardiogenic shock as above. Holding home beta-keisha. Holding anticoagulation as above. ? Anxiety/depression: Continue home venlafaxine and BuSpar. ? GERD: Continue home PPI. ? Type 2 diabetes mellitus: Treated with sliding scale insulin every 6 hours while inpatient as patient was n.p.o. status as above. ? Chronic iron deficiency anemia: Hemoglobin stable at baseline around 10. Continue home iron supplement. ? History of ESBL E. coli and VRE UTIs: UA benign appearing on admission. Urine culture grew 1,000-10,000 ESBL E. coli and VRE. Suspect colonization so no need for antibiotics at this time. Total clinical time spent by myself addressing the patient's medical issues, reviewing all the data, and collaborating with patient's care team: 55 minutes. Physical Exam Const alert Constitutional Narrative: Elderly female, class III obesity, alert and making appropriate eye contact but not answering questions appropriately, fatigued appearing, otherwise laying back in bed and in no acute distress. General Appearance: cooperative HEENT normocephalic, head/scalp atraumatic, hearing grossly normal bilaterally, nasal mucous membranes and turbinates normal and moist oral mucous membranes Eyes PERRL, EOMs intact bilaterally and conjunctivae normal Neck full ROM Chest inspection of chest normal Resp normal respiratory effort and no use of accessory muscles Resp Narrative: Breathing comfortably on 3 L nasal cannula at rest. Decreased breath sounds in bilateral lung bases with crackles noted bilaterally in mid lung zones. Cardio no murmurs and peripheral pulses 2+ throughout Cardio Narrative: Tachycardic, regular rhythm. GI normal to inspection, nondistended, normoactive bowel sounds, soft to palpation, non-tender and non-distended Back/Spine normal ROM Extremity Extremity Narrative: +3-4 lower extremity pitting edema noted. Weight / BMI Weight Weight: 113.7 kg Body Mass Index (BMI) 40.4 ABG / Lab / Microbiology Data 11/21/24 07:25 11/21/24 07:25 Laboratory: Laboratory Results - last 24 hr 11/20/24 05:20: Hepatitis A IgM Ab Negative, Hep Bs Antigen Negative, Hep B Core IgM Ab Negative, Hepatitis C Ab (EIA) Non Reactive, Hep C Ab Comment Comment 11/20/24 14:35: Lactic Acid 3.5 H* 11/20/24 17:57: POC Glucose 147 H 11/20/24 21:11: Lactic Acid 4.4 H* 11/21/24 01:08: POC Glucose 127 H 11/21/24 06:13: POC Glucose 86 11/21/24 07:25: WBC 11.8 H, RBC 3.82 L, Hgb 10.2 L, Hct 33.4 L, MCV 87.4, MCH 26.7 L, MCHC 30.5 L, RDW Std Deviation 56.4 H, RDW Coeff of Josiah 18.4 H, Plt Count 196, MPV 10.6, Sodium 136, Potassium 4.7, Chloride 95 L, Carbon Dioxide 15.6 L, Anion Gap 26 H, BUN 65 H, Creatinine 2.93 H, Estim Creat Clear Calc 20.90 L, Est GFR (MDRD) Non-Af 16 L, BUN/Creatinine Ratio 22.1 H, Glucose 102 H, Calcium 9.4, Total Bilirubin 1.95 H, AST 153 H, ALT 364 H, Alkaline Phosphatase 185 H, Total Protein 6.1, Albumin 3.4, Globulin 2.6, Albumin/Globulin Ratio 1.3 11/21/24 09:39: PT 88.1 H, INR 10.9 H*, Lactic Acid 9.4 H* 11/21/24 11:25: POC Glucose 59 L Microbiology: Microbiology 11/19/24 10:35 Urine, Catheterized Urine Culture - Preliminary ESBL Escherichia coli GPC Poss Enterococcus sp D/C Instructions DC O2, CPAP, BIPAP Needs Home O2 Discharge instructions: No Meaningful Use Info Meaningful Use Meaningful Use Diagnoses (Choose all that apply): None applicable Discharge Plan Admission Admit Date/Time: 11/20/24 03:58 Primary Reason for Your Visit: shortness of breath Attending Provider: Salvador Meza Primary Care Provider: Delgado Amaro Consulting Providers: Waqar Berman; Soham Enrique; Funmi Mcgrath Discharge Orders/Prescriptions Prescriptions: Continued pantoprazole 40 mg tablet,delayed release (DR/EC) 40 mg PO QDAY Qty: 90 1RF ferrous sulfate 325 mg (65 mg iron) tablet 325 mg PO QDAY Patient Comments: ON HOLD FOR CSCOPE furosemide 20 mg tablet 40 mg PO QAM cyclobenzaprine 10 mg tablet 5 mg PO TID Eliquis 5 mg tablet 5 mg PO BID Qty: 90 3RF carvedilol 3.125 mg tablet 3.125 mg PO BID Qty: 180 3RF venlafaxine 150 mg capsule,extended release 24hr 150 mg PO QDAY docusate sodium 100 mg capsule 100 mg PO BID buspirone 5 mg tablet 5 mg PO BID dapagliflozin propanediol [Farxiga] 5 mg tablet 5 mg PO DAILY Patient Comments: ON HOLD FOR CSCOPE albuterol sulfate 90 mcg/actuation HFA aerosol inhaler 2 inh inhalation Q6H PRN (Reason: shortness of breath or wheezing) guaifenesin 400 mg tablet 400 mg PO Q4H PRN (Reason: cough) insulin glargine [Lantus Solostar U-100 Insulin] 100 unit/mL (3 mL) insulin pen 8 unit subcut DAILY Patient Comments: Patient had 4 units (half her usual dose) this morning. polyethylene glycol 3350 [Miralax] 17 gram/dose powder 17 g PO QODAY acetaminophen 325 mg Tablet 650 mg PO Q4H PRN (Reason: Pain 1-5/10 Or Fever>100.7) magnesium hydroxide [Milk of Magnesia] 400 mg/5 mL suspension 30 ml PO DAILY PRN (Reason: constipation) benzonatate 100 mg capsule 100 mg PO TID PRN (Reason: cough) cholecalciferol (vitamin D3) 25 mcg (1,000 unit) capsule 25 mcg PO DAILY insulin lispro [Humalog KwikPen Insulin] 100 unit/mL insulin pen See Protocol subcut .TIDCM&HS Protocol: 6. Sliding Scale Insulin Custom Condition: 71-150mg/dl range Dose/Route: 0 Condition: 151-200 Dose/Route: 2 Condition: 201-250 Dose/Route: 4 Condition: 251-300 Dose/Route: 6 Condition: 301-350 Dose/Route: 8 Condition: 351-400 Dose/Route: 10 Protocol Text: Custom Sliding Scale Rx Instructions: TID with meals and at HS nystatin 100,000 unit/gram powder 1 applic topical BID PRN (Reason: skin irritation) melatonin 3 mg Tablet 6 mg PO QHS Qty: 0 0RF Referrals / Follow Up: Delgado Amaro DO [Primary Care Provider] - Disposition Disposition (needs filled in before D/C Order can be placed): Acute Care Hospital Charges/Coding Visit Charges Inpatient E&M: 70595 Disch Hosp >30min
--- NOTE | 2024-11-21 14:05 | CON.PCM.CA_ITS ---
Assessment & Plan Assessment/Plan (1) Cardiogenic shock: PLAN: Likely related to her underlying cardiomyopathy superimposed on severe aortic stenosis however the majority of the clinical findings on today's exam and by reviewing the labs are consistent with generalized stages of hypoperfusion to the distal organs including acute liver injury/acute kidney injury/distal poor peripheral circulation and mental status changes as well. A discussion with the family will have to be taken relatively urgently to address goals of care especially with her comorbidities as she may need transfer to ICU for intravenous inotrope and intravenous diuresis with Lasix drip which may result in further worsening renal function and the need potentially for renal replacement therapy. All of the above would have to be discussed along with the pros and cons about the approach. Right heart catheterization for accurate filling pressure assessment and guiding treatment would be necessary however the patient is in the process of undergoing transfer to a tertiary care center (2) Cardiorenal syndrome: QUALIFIERS: Heart failure presence: with heart failure H ypertensive chronic kidney disease stage: stage 1-4 or unspecified chronic kidney disease Qualified Code(s): I13.0 - Hypertensive heart and chronic kidney disease with heart failure and stage 1 through stage 4 chronic kidney disease, or unspecified chronic kidney disease PLAN: Secondary to cardiovascular condition but will discuss with nephrology the potential benefit of Lasix drip with some degree of inotropic therapy to improve renal perfusion and hopefully improve renal function and urine output considering her anuria for the last shift. The potential need for renal replacement therapy/ultrafiltration will have to be discussed with the family (3) Morbid obesity with BMI of 40.0-44.9, adult: PLAN: As above (4) Acute metabolic encephalopathy: PLAN: Likely secondary to cardiogenic shock and poor cerebral perfusion but currently back to baseline (5) Hyperbilirubinemia: PLAN: Likely secondary to shock liver (6) Lactic acidosis: PLAN: Secondary to cardiogenic shock and has responded partially to 1 bolus of albumin/lactated Ringer but will need inotropic therapy/mechanical circulatory support to improve it further if the decision is to proceed with escalation of invasive treatment (7) SANDRA (acute kidney injury): PLAN: Likely secondary to cardiogenic shock and CHF (8) Elevated troponin: PLAN: Nonspecific in the above setting (9) Severe aortic stenosis: PLAN: Mean gradient 40 mmHg in the setting of LVEF 40% which indicate severe critical aortic stenosis however the option of TAVR will have to be discussed and imaging will be problematic with her advanced renal insufficiency. She will definitely be a high risk for such a procedure and a temporizing balloon valvuloplasty supported by intra-aortic balloon pump may be of benefit but again all of that have to be discussed with the family regarding goals of care (10) Chronic HFrEF (heart failure with reduced ejection fraction): PLAN: Overall prognosis is guarded especially with the severe aortic stenosis and the current clinical deterioration HPI Consult Data Date of Consult: 11/21/24 HPI Narrative Reason for Consultation: Acute decompensating congestive heart failure with severe aortic stenosis HPI Narrative: DARYN SHAH, is a 78 F who presents following recent hospitalization that occurred between 11 08 till 11/17/2024 with acute decompensated heart failure and underlying severe aortic stenosis most recent echocardiographic study LVEF 40% with severe aortic stenosis and mean gradient of 40 mmHg however the patient has extensive multiple medical problems including morbid obesity class III, BMI 40.8, type 2 diabetes mellitus, hypertension, dyslipidemia, chronic atrial fibrillation on apixaban twice daily, moderate mitral and tricuspid regurgitation, chronic lymphedema, history of tobacco use with COPD/asthma, history of SIADH, vertebral osteomyelitis and recent UTI with VRE. She had a baseline chronic kidney disease but stage IIIb however plan was to be transferred to [facility] for TAVR evaluation and after her discharge to a nursing facility, she was brought back in with mental status changes and significant shock features including elevated transaminitis consistent with shock liver, acute kidney injury on chronic kidney disease with creatinine up to 2.9, mild elevated high-sensitivity troponin, severely elevated NT proBNP over 45,000, with involved bilateral pleural effusions and cardiomegaly and bibasilar atelectasis. She has underlying chronic anxiety and her mental status changes were obvious to the staff. She had significant lactic acidosis with lactic acid 7.2 that improved modestly with hydration down to 4.2. Unfortunately she continues to be in respiratory distress with underlying atrial fibrillation and a rapid ventricular response and critically ill. I was asked to see her as a transfer to [facility] has been delayed Most of the information were obtained from the chart as the patient is in moderate respiratory distress and not aware of all the details of her medical condition.. [facility] Medical History Post-menopausal History of ulceration Gastric reflux History of stress test History of irregular heartbeat Aortic stenosis Lives in prison Wears glasses Wears partial dentures Marijuana use Discoloration of skin Open wound Insulin dependent diabetes mellitus Uses wheelchair Arthritis History of renal disease Low iron High cholesterol Back pain Dietary restriction History of GI bleed Non-smoker Chronic cough History of edema History of echocardiogram Cardiology follow-up encounter History of CHF (congestive heart failure) History of atrial fibrillation Palpitations Magnesium deficiency Diarrhea Asthma Vertebral osteomyelitis Discitis of thoracic region Intractable back pain Syndrome of inappropriate secretion of antidiuretic hormone Age-related incipient cataract of both eyes Iron deficiency anemia Generalized muscle weakness Morbid obesity with BMI of 40.0-44.9, adult Vitamin D deficiency Venous stasis ulcer with varicose veins Renal lesion Primary osteoarthritis of both knees History of colonic polyps Neurodermatitis Lymphedema of leg Lumbar facet arthropathy Benign essential hypertension Anemia Anxiety Depression CHF (congestive heart failure) A-fib COPD (chronic obstructive pulmonary disease) Kidney disease Diabetes Hyperlipidemia History of ESBL E. coli infection History of infection with vancomycin resistant Enterococcus (VRE) Altered mental status Home Medications ?Medication ?Instructions ?Recorded ?Last Taken ?Type cholecalciferol (vitamin D3) 25 25 mcg PO DAILY Unknown History mcg (1,000 unit) capsule insulin lispro 100 unit/mL See Protocol subcut .TIDCM& HS 12/31/23 Unknown History subcutaneous pen (Humalog KwikPen (U-100) Insulin) nystatin 100,000 unit/gram topical 1 applic topical BI D PRN skin 12/31/23 Unknown History powder irritation melatonin 3 mg tablet 6 mg (2 x 3 mg) PO QHS #0 ta bs 01/08/24 Unknown Rx buspirone 5 mg tablet 5 mg PO BID 03/28/24 Unknown History dapagliflozin propanediol 5 mg 5 mg PO DAILY 03/28/24 Unknown History tablet (Farxiga) ferrous sulfate 325 mg (65 mg 325 mg PO QDAY 04/28/24 Unknown History iron) tablet furosemide 20 mg tablet 40 mg PO QAM 04/28/24 Unknow n History pantoprazole 40 mg tablet,delayed 40 mg PO QDAY #90 ta bs 04/28/24 Unknown Rx release cyclobenzaprine 10 mg tablet 5 mg PO TID 06/10/24 Unkn own History acetaminophen 325 mg tablet 650 mg PO Q4H PRN Pain 1- Or 06/30/24 Unknown History Fever>100.7 albuterol sulfate 90 mcg/actuation 2 inh inhalation Q6 H PRN shortness 06/30/24 Unknown History aerosol inhaler of breath or wheezing guaifenesin 400 mg tablet 400 mg PO Q4H PRN cough 06/08 08/01 Unknown History insulin glargine 100 unit/mL (3 8 unit subcut DAILY 07/01/24 History mL) subcutaneous pen (Lantus Solostar U-100 Insulin) polyethylene glycol 3350 17 17 g PO QODAY 06/30/24 Unk nown History gram/dose oral powder (Miralax) apixaban 5 mg tablet (Eliquis) 5 mg PO BID #90 tabs 10/23/24 Rx carvedilol 3.125 mg tablet 3.125 mg PO BID #180 tabs 0 07/31/24 Unknown Rx docusate sodium 100 mg capsule 100 mg PO BID 10/09/24 Unknown History venlafaxine 150 mg 150 mg PO QDAY 10/09/24 Unkn own History capsule,extended release 24 hr benzonatate 100 mg capsule 100 mg PO TID PRN cough Unknown History magnesium hydroxide 400 mg/5 mL 30 ml PO DAILY PRN con stipation 10/21/24 Unknown History oral suspension (Milk of Magnesia) Allergy/AdvReac Type Severity Reaction Status Date / Time No Known Allergies Allergy Verified 11/19/24 08:37 Family History Mother Alzheimer dementia Breast cancer Heart disease Brother Cystic fibrosis Other Diabetes Surgical History History of colonoscopy S/P laminectomy History of tubal ligation Hx of cholecystectomy H/O section Social History Smoking Status: Never smoker alcohol intake: never Prior Cardiac Testing/Procedures Prior Cardiac Testing/Procedures: Echocardiogram and Stress Test ROS ROS Narrative As per HPI Physical Exam Const alert Constitutional Narrative: But not oriented in moderate to severe respiratory distress HEENT normocephalic Eyes PERRL and EOMs intact bilaterally Eyes Narrative: Pale conjunctiva Lymph Lymphatic: no lymphadenopathy noted Chest palpation of chest normal Resp Resp Narrative: Significant decrease in breath sound bilaterally with bilateral crackles in lung bases Auscultation: breath sounds absent Cardio Cardio Narrative: Irregularly irregular rhythm, tachycardic with a systolic pressure murmur 3 out of 6 and single S2 component along with delayed carotid and brachial upstrokes GI Palpation: no hepatosplenomegaly no CVA tenderness Extremity Extremity Narrative: Cool clammy extremities with significant purplish discoloration of the toes and diminished pulses barely palpable indicative of poor circulation and hypoperfusion Psych Psych Narrative: Alert awake oriented x 1 and cooperative Objective Data Vital Signs: Vital Signs Temp Pulse Resp BP Pulse Ox O2 Del Method O2 Flow Rate 97.8 F 120 H 28 H 60/37 L 87 Nasal Cannula 3 11/21/24 13:55 11/21/24 13:55 11/21/24 13:55 11/21/24 13:55 11/21/24 13:55 11/21/24 13:55 11/21/24 13:55 Oxygen Flow Rate (L/min) 3 Oxygen Delivery Method Nasal Cannula Weight: 250 lb 10.649 oz Body Mass Index (BMI) 40.4 Intake & Output: Intake and Output for Last 24 Hours 11/19/24 11/20/24 11/21/24 23:59 23:59 23:59 Intake Total 1356.2 / 1356.2 2658.41 / 2658.41 1060 / 1060 Output Total 0 / 0 10 Balance 1356.2 / 1356.2 2658.41 / 2658.41 1050 / 1050 Lab / Micro Data Attestation: I reviewed the patient's lab results. 11/21/24 07:25 11/21/24 07:25 Labs: Laboratory Results - last 24 hr 11/20/24 05:20: Hepatitis A IgM Ab Negative, Hep Bs Antigen Negative, Hep B Core IgM Ab Negative, Hepatitis C Ab (EIA) Non Reactive, Hep C Ab Comment Comment 11/20/24 14:35: Lactic Acid 3.5 H* 11/20/24 17:57: POC Glucose 147 H 11/20/24 21:11: Lactic Acid 4.4 H* 11/21/24 01:08: POC Glucose 127 H 11/21/24 06:13: POC Glucose 86 11/21/24 07:25: WBC 11.8 H, RBC 3.82 L, Hgb 10.2 L, Hct 33.4 L, MCV 87.4, MCH 26.7 L, MCHC 30.5 L, RDW Std Deviation 56.4 H, RDW Coeff of Josiah 18.4 H, Plt Count 196, MPV 10.6, Sodium 136, Potassium 4.7, Chloride 95 L, Carbon Dioxide 15.6 L, Anion Gap 26 H, BUN 65 H, Creatinine 2.93 H, Estim Creat Clear Calc 20.90 L, Est GFR (MDRD) Non-Af 16 L, BUN/Creatinine Ratio 22.1 H, Glucose 102 H, Calcium 9.4, Total Bilirubin 1.95 H, AST 153 H, ALT 364 H, Alkaline Phosphatase 185 H, Total Protein 6.1, Albumin 3.4, Globulin 2.6, Albumin/Globulin Ratio 1.3 11/21/24 09:39: PT 88.1 H, INR 10.9 H*, Lactic Acid 9.4 H* 11/21/24 11:25: POC Glucose 59 L Micro: Microbiology 11/19/24 10:35 Urine, Catheterized Urine Culture - Preliminary ESBL Escherichia coli GPC Poss Enterococcus sp Rhythm Strip Rhythm Strip: A-fib Rate: 100 Cardiology Labs/Tests 11/20/24 14:35: Lactic Acid 3.5 H* 11/20/24 21:11: Lactic Acid 4.4 H* 11/21/24 07:25: WBC 11.8 H, RBC 3.82 L, Hgb 10.2 L, Hct 33.4 L, MCV 87.4, MCH 26.7 L, MCHC 30.5 L, Plt Count 196, MPV 10.6, Sodium 136, Potassium 4.7, C hloride 95 L, Carbon Dioxide 15.6 L, Anion Gap 26 H, BUN 65 H, Creatinine 2.93 H , Est GFR (MDRD) Non-Af 16 L, BUN/Creatinine Ratio 22.1 H, Glucose 102 H, Calcium 9.4, Total Bilirubin 1.95 H 11/21/24 09:39: PT 88.1 H, INR 10.9 H*, Lactic Acid 9.4 H* Rhythm: EKG: ECHO: Stress Test: Cardiac Cath: PCI: CT Surgery: Holter monitor: EPS: PPM: CXR: Chest CT Scan: SUSHILA Risk Score for UA/STEMI Assesmment (YES = 1) Risk Stratification Applicable: No
[2024-11-21 14:46] LABS: Anion Gap 27 (5-15); BUN 67 mg/dL (4-19); BUN/Creat Ratio 21.9 RATIO (10-20); Calcium,Total 9.2 mg/dL (7.6-11.0); Carbon Dioxide 16.8 mmol/L (21.0-32.0); Chloride 93 mmol/L (98-108); Estimated Creatinine Clearance 20.15 ml/min (50-250); Glucose 143 mg/dL (70-99); Potassium 4.7 mmol/L (3.3-5.1)
--- NOTE | 2024-11-21 16:30 | NURSING ---
Addendum entered by Sonya Muller 11/21/24 17:08: report called on 11/21/24 at 1420, patient transferring to [place] [address], bed 101. Original Note: report called to Alaina GUSMAN at [facility] as patient is being transferred via life-flight shortly.
--- NOTE | 2024-11-21 16:32 | NURSING ---
11/21/24 1452: life-flight staff here in room to transport patient to [facility]. belongings sent with patient and crew including cellular phone.
[2024-11-24 13:08] LABS: Vitamin D 1,25-Dihydroxy 20.9 pg/mL (24.8-81.5)
== END 2024-11-21 14:52 | disposition short-term general hospital (02) | DRG 306 ==
LOC: ED 11-20 01:57 → ICU 11-20 04:16 → PCU 11-20 10:52 → ICU 11-21 13:16
PROVIDERS: Student in an Organized Health Care Education/Training Program; Admitting Provider Internal Medicine; Emergency Provider Emergency Medicine; Visit Provider Hospitalist
DX: I35.0 Nonrheumatic aortic (valve) stenosis (principal); R57.0 Cardiogenic shock; K72.00 Acute and subacute hepatic failure without coma; G93.41 Metabolic encephalopathy; I50.43 Acute on chronic combined systolic (congestive) and diastolic (congestive) heart failure; Z68.41 Body mass index [BMI] 40.0-44.9, adult; I13.0 Hypertensive heart and chronic kidney disease with heart failure and stage 1 through stage 4 chronic kidney disease, or unspecified chronic kidney disease; I48.20 Chronic atrial fibrillation, unspecified; E87.20 Acidosis, unspecified; N17.9 Acute kidney failure, unspecified; J98.11 Atelectasis; I42.9 Cardiomyopathy, unspecified; R13.12 Dysphagia, oropharyngeal phase; J44.9 Chronic obstructive pulmonary disease, unspecified; E11.22 Type 2 diabetes mellitus with diabetic chronic kidney disease; N18.32 Chronic kidney disease, stage 3b; D50.9 Iron deficiency anemia, unspecified; I08.2 Rheumatic disorders of both aortic and tricuspid valves; D69.6 Thrombocytopenia, unspecified; E66.01 Morbid (severe) obesity due to excess calories; E80.6 Other disorders of bilirubin metabolism; Z79.4 Long term (current) use of insulin; M19.90 Unspecified osteoarthritis, unspecified site; E78.00 Pure hypercholesterolemia, unspecified; F41.8 Other specified anxiety disorders; K22.4 Dyskinesia of esophagus; K21.00 Gastro-esophageal reflux disease with esophagitis, without bleeding; K29.70 Gastritis, unspecified, without bleeding; I89.0 Lymphedema, not elsewhere classified; K59.09 Other constipation; Z79.01 Long term (current) use of anticoagulants; Z87.891 Personal history of nicotine dependence; Z79.84 Long term (current) use of oral hypoglycemic drugs; N25.89 Other disorders resulting from impaired renal tubular function; E66.813 Obesity, class 3; Z98.51 Tubal ligation status; Z90.49 Acquired absence of other specified parts of digestive tract
CPT/HCPCS: 36415; 70450; 71045; 74176; 80048; 80053; 80074; 81001; 82077; 82607; 82652; 82746; 82803; 82962; 83036; 83605; 83690; 83735; 83880; 84100; 84145; 84443; 84484; 85025; 85027; 85610; 85730; 87040; 87077; 87086; 87088; 87186; 92526; 92610; 93005; 99252; 99285; P9047; A4216; G0463; J1938